=== PATIENT | female | born 1965 | race American Indian/Alaskan Native ===

== ENCOUNTER 2017-03-28 10:47 | Inpatient (IN) | payer OTHER ==
--- NOTE | 2017-03-28 11:41 | Emergency Department Report ---
Entered by ANEL ROTH, acting as scribe for WEI HALL PA. Chief Complaint: Abdominal Pain Stated Complaint: LOWER ABD PAIN Time Seen by Provider: 03/28/17 11:31 - HPI History of Present Illness: Patient c/o RLQ abdominal pain that began yesterday. Describes the pain as "kicking" Reports N&V since last night. Reports constipation. Notes taking a laxative and had a bowel movement yesterday. Denies vaginal bleeding. Denies dysuria. Patient states she feels the urge to urinate but is unable. - ROS Review of Systems: All systems are negative unless stated in the HPI above. - Exam Vital Signs: Vital Signs 03/28/17 11:15 Temperature 97.9 F Pulse Rate 109 H Respiratory 20 Rate Blood Pressure 148/97 O2 Sat by Pulse 100 Oximetry Physical Exam: GENERAL: Patient is alert and oriented x 3. mild distress, moaning and holdin abdomen. atraumatic. LUNGS: Symmetrical with respiration. No wheezing, rales or crackles, CTAB. HEART: Regular rate and rhythm with normal S1/S2 present. No murmurs, rubs, or gallops. Abdomen: Soft. Normal bowel sounds present to all quadrants. RLQ tenderness. No guarding or rebound. MSE screening note: Focused history and physical exam performed. Due to findings the following was ordered: ED Medical Decision Making - Medical Decision Making Patient screened by provider in triage area. Lab work ordered and sent in for patient. CT scan of abdomen was also ordered for patient. Patient to be seen by MD on main ED side. ED Disposition for MSE Condition: Stable Instructions: Abdominal Pain (ED) This documentation as recorded by the scribe,ANEL ROTH,accurately reflects the service I personally performed and the decisions made by RAFAEL smith OYINLOLA A, PA.
[2017-03-28 12:09] LABS: Basophils % (Auto) 0.4 % (0.0-1.8); Eosinophils % (Auto) 0.1 % (0.0-4.3); Hematocrit 40.4 % (30.3-42.9); Hemoglobin 13.9 gm/dl (10.1-14.3); Mean Corpuscular HGB Conc 34 % (30-34); Mean Corpuscular Hemoglobin 35 pg (28-32); Mean Corpuscular Volume 102 fl (79-97); Platelet Count 317 K/mm3 (140-440); Red Blood Count 3.95 M/mm3 (3.65-5.03); Red Cell Distribution Width 14.7 % (13.2-15.2); White Blood Count 16.9 K/mm3 (4.5-11.0)
[2017-03-28 12:27] LABS: Alanine Aminotransferase 34 units/L (7-56); Albumin 4.5 g/dL (3.9-5); Albumin/Globulin Ratio 1.2 %; Alkaline Phosphatase 124 units/L (35-129); Amylase 53 units/L (27-131); Anion Gap 28 mmol/L; Blood Urea Nitrogen 8 mg/dL (7-17); Calcium 9.1 mg/dL (8.4-10.2); Carbon Dioxide 24 mmol/L (22-30); Chloride 90.8 mmol/L (98-107); Glucose 99 mg/dL (65-100); Lipase 11 units/L (13-60); Sodium 140 mmol/L (137-145); Total Protein 8.2 g/dL (6.3-8.2)
[2017-03-28 12:30] LABS: Potassium 2.3 mmol/L (3.6-5.0)
--- NOTE | 2017-03-28 14:08 | Cat Scan Report ---
CT OF THE ABDOMEN AND PELVIS WITHOUT CONTRAST HISTORY: Abdominal pain. TECHNIQUE: Helical CT without contrast. Sagittal and coronal reformatted images. FINDINGS: No comparison. There is moderate circumferential thickening of the colon. The right hemicolon is more affected. There is trace pericolonic fat stranding but no evidence for pneumatosis, abscess or free air. The colon does contain scattered diverticula distally. The stomach, small bowel loops and appendix are within normal limits. Mild fatty changes suspected in the liver. The biliary system, pancreas, spleen, kidneys, adrenal glands, aorta and bladder are unremarkable. The uterus and adnexa are within normal limits. 3 cm fibroid in the anterior uterine wall is noted. Heart size is normal. The lung bases are clear. No suspicious bony lesion. IMPRESSION: Findings consistent with a nonspecific colitis. See above.
[2017-03-28] MEDS ORDERED: ZOFRAN IV ONE (20:57)
[2017-03-28] MEDS ORDERED: DILAUDID IV ONE (20:57)
[2017-03-28] MEDS ORDERED: NACL 0.9% 1000 ML 1,000 ML IV ONE ×2 (20:57→22:58)
[2017-03-28] MEDS ORDERED: K-DUR PO ONE (20:57)
[2017-03-28] MEDS ORDERED: FLAGYL PO ONE (20:58)
[2017-03-28] MEDS ORDERED: LEVAQUIN PO ONE (20:58)
[2017-03-28] MEDS ORDERED: CATAPRES PO ONE (21:03)
--- NOTE | 2017-03-28 21:03 | Emergency Department Report ---
ED Abdominal Pain HPI - General Chief Complaint: Abdominal Pain Stated Complaint: LOWER ABD PAIN Time Seen by Provider: 03/28/17 11:22 Source: patient Mode of arrival: Ambulatory Limitations: No Limitations - History of Present Illness Initial Comments: 52-year-old female with a past medical history depression and hypertension presents to the hospital complaints of abdominal pain 2 days. Pain is in the right lower quadrant, constant, throbbing in nature. Pain rated moderate to severe in intensity, worse palpation or movement. No alleviating factors. Patient has 3 episodes of nausea vomiting last night. Patient thought she might be constipated since she was straining to have a bowel movement. Last normal was 2 days ago. Patient took a laxity of yesterday. Patient also having difficulty urinating. She states that she has a feeling that she has to urinate, the urine to trickles out. Denies dysuria, fever, or previous abdominal surgeries. Patient's blood pressure is elevated to my examination. Patient's been compliant with her amlodipine 10 mg and also takes anti- depressive. She admits to social and weekend alcohol use. Denies daily alcohol use - Related Data Allergies Allergy/AdvReac Type Severity Reaction Status Date / Time No Known Allergies Allergy Verified 03/28/17 11:20 ED Review of Systems ROS: Stated complaint: LOWER ABD PAIN Other details as noted in HPI Comment: All other systems reviewed and negative Other: Constitutional: No fevers chills Eyes: No eye pain visual changes or discharge ENT: No ear pain or throat pain Neck: Denies pain Respiratory: Denies cough wheezing shortness of breath Cardiovascular: Denies chest pain, palpitations, syncope GI: As per HPI : As per HPI Musculoskeletal: Denies back pain, joint swelling Skin: Denies rash, lesions, erythema Neurologic: Denies headache, numbness, weakness Psychiatric: Denies suicidal ideation, hallucinations ED Past Medical Hx - Past Medical History Previous Medical History?: Yes Hx Hypertension: Yes Hx Psychiatric Treatment: Yes (depression) - Surgical History Past Surgical History?: No - Social History Smoking Status: Current Every Day Smoker Substance Use Type: Alcohol ED Physical Exam - General Limitations: No Limitations - Other Other exam information: General: No limitations, patient is alert in no acute distress Head exam: Atraumatic, normocephalic Eyes exam: Normal appearance, pupils equal reactive to light, extraocular movements intact ENT: Moist mucous membrane, normal oropharynx Neck exam: Normal inspection, full range of motion, Respiratory exam: Clear to auscultation bilateral, no wheezes, rales, crackles Cardiovascular: Normal rate and rhythm, normal heart sounds Abdomen: Soft, nondistended, epigastric and right lower quadrant tenderness, no rebound or guarding, normal bowel sounds Extremity: Full range of motion normal inspection no deformity Back: Normal Inspection, full range of motion, no tenderness Neurologic: Alert, oriented x3, cranial nerves intact, no motor or sensory deficit Psychiatric: normal affect, normal mood Skin: Warm, dry, intact ED Course Vital Signs 03/28/17 03/28/17 03/28/17 11:15 19:05 20:41 Temperature 97.9 F Pulse Rate 109 H 103 H 104 H Respiratory 20 16 17 Rate Blood Pressure 148/97 Blood Pressure 168/101 [Left] O2 Sat by Pulse 100 99 Oximetry 03/28/17 03/28/17 03/28/17 21:04 21:10 21:20 Temperature Pulse Rate 95 H 100 H 119 H Respiratory 19 27 H 27 H Rate Blood Pressure 167/106 167/106 179/101 Blood Pressure [Left] O2 Sat by Pulse Oximetry 03/28/17 21:29 Temperature Pulse Rate 120 H Respiratory Rate Blood Pressure 176/101 Blood Pressure [Left] O2 Sat by Pulse Oximetry - Reevaluation(s) Reevaluation #1: 03/28/17 21:02 Meds ordered: Normal saline Zofran Dilaudid 0.5 mg Flagyl and Levaquin by mouth By mouth potassium clonidine 0.1 mg 03/28/17 21:40 Iv mag ordered ED Medical Decision Making - Lab Data Result diagrams: 03/28/17 11:56 03/28/17 11:49 Lab Results 03/28/17 03/28/17 03/28/17 Range/Units 11:05 11:49 11:56 WBC 16.9 H (4.5-11.0) K/mm3 RBC 3.95 (3.65-5.03) M/mm3 Hgb 13.9 (10.1-14.3) gm/dl Hct 40.4 (30.3-42.9) % MCV 102 H (79-97) fl MCH 35 H (28-32) pg MCHC 34 (30-34) % RDW 14.7 (13.2-15.2) % Plt Count 317 (140-440) K/mm3 Lymph % (Auto) 10.2 L (13.4-35.0) % [place] % (Auto) 5.2 (0.0-7.3) % Eos % (Auto) 0.1 (0.0-4.3) % Baso % (Auto) 0.4 (0.0-1.8) % Lymph # 1.7 (1.2-5.4) K/mm3 [place] # 0.9 H (0.0-0.8) K/mm3 Eos # 0.0 (0.0-0.4) K/mm3 Baso # 0.1 (0.0-0.1) K/mm3 Seg Neutrophils % 84.1 H (40.0-70.0) % Seg Neutrophils # 14.2 H (1.8-7.7) K/mm3 Sodium 140 (137-145) mmol/L Potassium 2.3 L* (3.6-5.0) mmol/L Chloride 90.8 L (98-107) mmol/L Carbon Dioxide 24 (22-30) mmol/L Anion Gap 28 mmol/L BUN 8 (7-17) mg/dL Creatinine 0.4 L (0.7-1.2) mg/dL Estimated GFR > 60 ml/min BUN/Creatinine Ratio 20.00 % Glucose 99 (65-100) mg/dL POC Glucose 93 (70-105) Calcium 9.1 (8.4-10.2) mg/dL Magnesium (1.7-2.3) mg/dL Total Bilirubin 1.10 (0.1-1.2) mg/dL AST 55 H (5-40) units/L ALT 34 (7-56) units/L Alkaline Phosphatase 124 (35-129) units/L Total Protein 8.2 (6.3-8.2) g/dL Albumin 4.5 (3.9-5) g/dL Albumin/Globulin Ratio 1.2 % Amylase 53 (27-131) units/L Lipase 11 L (13-60) units/L HCG, Qual (Negative) Urine Color (Yellow) Urine Turbidity (Clear) Urine pH (5.0-7.0) Ur Specific [place] (1.003-1.030) Urine Protein (Negative) mg/dL Urine Glucose (UA) (Negative) mg/dL Urine Ketones (Negative) mg/dL Urine Blood (Negative) Urine Nitrite (Negative) Urine Bilirubin (Negative) Urine Urobilinogen (<2.0) mg/dL Ur Leukocyte Esterase (Negative) Urine WBC (Auto) (0.0-6.0) /HPF Urine RBC (Auto) (0.0-6.0) /HPF U Epithel Cells (Auto) (0-13.0) /HPF Urine Mucus /HPF 03/28/17 03/28/17 03/28/17 Range/Units 11:56 20:47 20:52 WBC (4.5-11.0) K/mm3 RBC (3.65-5.03) M/mm3 Hgb (10.1-14.3) gm/dl Hct (30.3-42.9) % MCV (79-97) fl MCH (28-32) pg MCHC (30-34) % RDW (13.2-15.2) % Plt Count (140-440) K/mm3 Lymph % (Auto) (13.4-35.0) % [place] % (Auto) (0.0-7.3) % Eos % (Auto) (0.0-4.3) % Baso % (Auto) (0.0-1.8) % Lymph # (1.2-5.4) K/mm3 [place] # (0.0-0.8) K/mm3 Eos # (0.0-0.4) K/mm3 Baso # (0.0-0.1) K/mm3 Seg Neutrophils % (40.0-70.0) % Seg Neutrophils # (1.8-7.7) K/mm3 Sodium (137-145) mmol/L Potassium (3.6-5.0) mmol/L Chloride (98-107) mmol/L Carbon Dioxide (22-30) mmol/L Anion Gap mmol/L BUN (7-17) mg/dL Creatinine (0.7-1.2) mg/dL Estimated GFR ml/min BUN/Creatinine Ratio % Glucose (65-100) mg/dL POC Glucose (70-105) Calcium (8.4-10.2) mg/dL Magnesium 1.30 L (1.7-2.3) mg/dL Total Bilirubin (0.1-1.2) mg/dL AST (5-40) units/L ALT (7-56) units/L Alkaline Phosphatase (35-129) units/L Total Protein (6.3-8.2) g/dL Albumin (3.9-5) g/dL Albumin/Globulin Ratio % Amylase (27-131) units/L Lipase (13-60) units/L HCG, Qual Negative (Negative) Urine Color Bonnie (Yellow) Urine Turbidity Clear (Clear) Urine pH 6.0 (5.0-7.0) Ur Specific [place] 1.020 (1.003-1.030) Urine Protein 100 mg/dl (Negative) mg/dL Urine Glucose (UA) Neg (Negative) mg/dL Urine Ketones 20 (Negative) mg/dL Urine Blood Sm (Negative) Urine Nitrite Neg (Negative) Urine Bilirubin Neg (Negative) Urine Urobilinogen 2.0 (<2.0) mg/dL Ur Leukocyte Esterase Neg (Negative) Urine WBC (Auto) 1.0 (0.0-6.0) /HPF Urine RBC (Auto) 8.0 (0.0-6.0) /HPF U Epithel Cells (Auto) 2.0 (0-13.0) /HPF Urine Mucus Few /HPF - EKG Data -: EKG Interpreted by Me (nsr, prolonged qt (qtc 508)) - EKG Data When compared to previous EKG there are: previous EKG unavailable - Radiology Data Radiology results: report reviewed CT abdomen and pelvis noncontrast: Nonspecific colitis. Right hemicolon more infected. Probable uterine fibroid. - Medical Decision Making Patient denies daily alcohol use but I have high suspicion prior alcohol abuse given elevated AST, hypokalemia, and low back magnesium. Treatment has been initiated in the ED. Plan to admit for further management and monitoring. Despite urinary symptoms patient does not have any UTI identified at this time. - Differential Diagnosis colitis, appendicitis, UTI, diverticulitis Critical Care Time: No Critical care attestation.: If time is entered above; I have spent that time in minutes in the direct care of this critically ill patient, excluding procedure time. ED Disposition Clinical Impression: Colitis, Hypokalemia, Hypomagnesemia, HTN (hypertension) Disposition: -09 OP ADMIT IP TO THIS HOSP Is pt being admited?: Yes Condition: Stable Time of Disposition: 21:39 (Dr Zepeda/hosp)
[2017-03-28 21:26] LABS: Bilirubin,Urine NEG (Negative); Blood,Urine SM (Negative); Ketones,Urine 20 mg/dL (Negative); Leukocyte Esterase,Urine NEG (Negative); Mucus,Urine FEW /HPF; Nitrite,Urine NEG (Negative)
[2017-03-28] MEDS ORDERED: MAGNESIUM SULFATE 2GM/50ML 2 GM/50 ML BAG IV ONE (21:37)
--- NOTE | 2017-03-28 21:57 | Admit Criteria Form ---
Admission Criteria Documentation: ABDOMINAL PAIN Clinical Indications for Admission to Inpatient Care (Place 'X' for any and all applicable criteria): Admission is indicated for ANY ONE of the following(1)(2)(3)(4)(5): [ X]I. Inpatient admission required rather than observation care (Also use Abdominal Pain: Observation Care, as appropriate) because of ANY ONE of the following: [ ]a) Severe pain requiring acute inpatient management [X ]b) Identification of etiology/finding that requires inpatient care (eg, aortic dissection, free air) [ ]c) Absent bowel sounds with complete ileus(6) [ ]d) Suspected toxic megacolon [ ]e) Severe electrolyte abnormalities requiring inpatient care [ ]f) High fever or infection requiring inpatient admission as indicated by ANY ONE of following(7)(8): [ ] i) Appropriate outpatient or observational care antimicrobial treatment unavailable, not effective, or not feasible [ ] ii) Documented bacteremia [ ] iii) Temperature > 104.9 degrees F (oral) [ ] iv) T >103.1 F (oral) or < 96.8 F(rectal) that does not respond to all emergency treatment measures [ ]g) Signs of intestinal obstruction [B] [ ]h) Hemodynamic instability [ ]i) IV fluid to replace significant ongoing losses (greater than 3 L/m2 per day) (12)(13) [ ]j) Percutaneous or open drainage (eg, abscess, biliary tract ) procedures [ ]k) Parenteral nutrition regimen that must be implemented on inpatient basis [X ]l) Other condition,treatment or monitoring requiring inpatient admission. [ ]II. Peritoneal signs present [ ]III. Surgery needed that cannot be performed on an ambulatory basis. [ ]IV. Evaluation requires patient to not eat or drink for extended period ( eg, more than 24 hours). [ ]V. Contraindications and/or Inappropriate clinical situations for Observational Care in patients with abdominal pain, when ANY ONE of the following is required: [ ]a) Thorough evaluation is required to prevent catastrophic events due to delays in diagnosing (e.g.Mesenteric ischemia) 1,3 [ ]b) Patient with severe pathology or with chronic symptoms unlikely to improve in the ED stay (3) [ ]. General contraindications and/or Inappropriate clinical situations for Observational Care in patients with abdominal pain, when ANY ONE of the following is required: [ ]a) Prediction of prolongation of LOS based on ANY ONE of the following may be considered as a contraindication for observational care 2, 3, 4, 5, 6, 7, 8, 9, 10, 11 [ ]i) Age > 65 yrs. [ ]ii) Patient arriving by ambulance [ ]iii) Patient with high acuity [ ]iv) Patient requiring vital sign monitoring [ ]v) Patient on IV medication [ ]b) Systolic blood pressures 180mmHg 3,12 [ ]c) Patient with altered mental status including delirium and other alteration of consciousness, (3) [ ]d) Patient whose discharge disposition will be to a [facility] home or rehabilitation home should not be managed in Emergency Department Observation Unit. CMS rule requires 3 days hospital stay before such placement.3,13 [ ]e) Patient with failure to thrive due to broad array of etiologies 3,16,17 [ ]f) Inability to ambulate 3,14 Extended stay beyond goal length of stay may be needed for(2)(3): [ ]a) Persistent abdominal pain with suspected intra-abdominal process [ ]b) Diagnosed condition requiring continued stay (e.g., pancreatitis, complicated diverticulitis) [ ]c) Surgery (e.g., colectomy) The original [employer] content created by [employer] has been revised. The portions of the content which have been revised are identified through the use of italic text or in bold, and [facility] has neither reviewed nor approved the modified material.All other unmodified content is copyright [employer]. Please see references footnoted in the original [employer] edition 2016 Admission Criteria Met: Yes
[2017-03-28] MEDS ORDERED: ZOFRAN IV PRN (22:37)
[2017-03-28] MEDS ORDERED: DILAUDID IV PRN (22:37)
[2017-03-28] MEDS ORDERED: TYLENOL PO PRN (22:39)
[2017-03-28] MEDS ORDERED: NACL 0.9% 1000 ML 1,000 ML IV SCH (23:00)
[2017-03-28] MEDS: KCL 10MEQ/100ML 10 MEQ/100 ML BAG IV SCH (23:09)
[2017-03-29] MEDS: KCL 10MEQ/100ML 10 MEQ/100 ML BAG IV SCH ×3 (02:17→04:55)
--- NOTE | 2017-03-29 05:49 | History and Physical Report ---
History of Present Illness Date of examination: 03/28/17 Date of admission: 03/28/17 22:31 Chief complaint: Chief complaint is abdominal pain History of present illness: History of present illness, patient is a 52-year-old female who has been having abdominal pain especially on the right side going on for about 2 days pain is worse with movement or palpation and occasionally radiates to the right flank area. There is associated nausea vomiting, also patient noted some constipation and took some laxative yesterday, there is no history of fever or chills Past History Past Medical History: hypertension, other (DEPRESSION) Medications and Allergies Allergies Allergy/AdvReac Type Severity Reaction Status Date / Time No Known Allergies Allergy Verified 03/28/17 11:20 Active Meds: Active Medications Acetaminophen (Tylenol) 650 mg PO Q6H PRN PRN Reason: Nausea And Vomiting Heparin Sodium (Porcine) (Heparin) 5,000 unit SUB-Q Q12HR LUCHO Hydromorphone HCl (Dilaudid) 0.5 mg IV Q3H PRN PRN Reason: Pain , Severe (7-10) Last Admin: 03/29/17 03:15 Dose: 0.5 mg Levofloxacin/Dextrose (Levaquin 750mg/150ml) 750 mg in 150 mls @ 100 mls/hr IV Q24HR LUCHO PRN Reason: Protocol Metronidazole (Flagyl 500 Mg/100 Ml) 500 mg in 100 mls @ 100 mls/hr IV Q8HR [facility] Sodium Chloride (Nacl 0.9% 1000 Ml) 1,000 mls @ 75 mls/hr IV DIRECT LUCHO Ondansetron HCl (Zofran) 4 mg IV Q6H PRN PRN Reason: Nausea And Vomiting Review of Systems Constitutional: no weight loss, no weight gain, no fever, no chills, no sweats, no fatigue, no weakness, no malaise, no lethargy, no poor appetite, no daytime sleepiness Eyes: bilateral: other (no bilateral eye symptoms) Ears, nose, mouth and throat: no ear pain, no decreased hearing, no nose pain, no nasal congestion, no nasal discharge, no bleeding gums, no dental pain, no dysphagia, no hoarseness, no sore throat, no swelling in mouth, no swelling in throat, no post-nasal drip, no headache, no vertigo, no pain front of neck, no neck fullness/pressure Breasts: deferred Cardiovascular: no chest pain, no orthopnea, no palpitations, no rapid/ irregular heart beat, no edema, no syncope, no lightheadedness, no shortness of breath, no dyspnea on exertion, no paroxysmal nocturnal dyspnea, no claudication , no high blood pressure, no leg edema, no decreased exercise tolerance Respiratory: no cough with sputum, no excessive sputum, no hemoptysis, no shortness of breath, no dyspnea on exertion, no congestion, no wheezing, no pleurisy, no pain, no pain on inspiration, no sleep apnea, no respiratory infections, no home oxygen Gastrointestinal: abdominal pain, nausea, vomiting, constipation, no diarrhea, no change in bowel habits, no hematemesis, no coffee ground emesis, no melena, no hematochezia, no loss of appetite, no heartburn, no indigestion, no excessive gas, no jaundice, no dyspepsia/bloating, no early satiety, no lactose intolerance Genitourinary Female: no dyspareunia, no dysmenorrhea, no pelvic pain, no flank pain, no menorrhagia, no dysuria, no urinary frequency, no urgency, no stress incontinence, no post void dribbling, no incomplete emptying, no urge incontinence, no mixed incontinence, no difficulty voiding, no vaginal itching, no vaginal discharge, no vaginal odor, no abnormal vaginal bleeding, no genital sores, no vaginal dryness, no decreased libido, no mood problems, no prolapse symptoms, no , no difficulties conceiving Rectal: no pain, no incontinence, no hemorrhoids, no discharge, no flatulence Musculoskeletal: no neck stiffness, no neck pain, no shooting arm pain, no arm numbness/tingling, no low back pain, no shooting leg pain, no leg numbness/ tingling, no morning stiffness, no muscle weakness, no muscle cramps, no myalgias, no limitation of motion, no frequent falls, no fractures, no loss of height, no prior amputations Integumentary: no rash, no pruritis, no redness, no sores, no wounds, no jaundice, no boils, no blisters, no bullae, no lesions, no darkening of skin, no depigmentation, no acne, no dryness, no color changes, no unusual bruising, no change in hair/nails, no brittle nails, no striae, no hirsutism, no foot/leg ulcers, no onychomycosis Neurological: no transient paralysis, no paralysis, no weakness, no parathesias , no numbness, no tingling, no seizures, no syncope, no tremors, no ataxia, no headaches, no migraines, no convulsions, no aphasia, no change in speech, no change in mentation, no confusion, no memory loss, no changes in smell/taste, no gait dysfunction, no motor disturbance, no sensory deficit, no double vision , no loss of vision, no hearing difficulties, no burning pain, no paralysis, no spasticity Psychiatric: depression, no memory loss, no insomnia, no hypersomnia, no change in appetite, no change in libido, no suicidal ideation, no disorientation, no hopelessness, no anhedonia, no confusion, no irritability Endocrine: no cold intolerance, no heat intolerance, no excessive thirst, no polydipsia, no polyuria, no nocturia, no deepening of the voice, no thyroid mass , no palpatations, no high blood sugars Hematologic/Lymphatic: no easy bruising, no easy bleeding, no lymphadenopathy, no lymphedema, no thrombophilia Allergic/Immunologic: no urticaria, no allergic rhinitis, no persistent infections, no anaphylaxis Exam - Constitutional Vitals: Temp Pulse Resp BP Pulse Ox 98.2 F 94 H 18 146/93 94 03/29/17 05:02 03/29/17 05:02 03/29/17 05:02 03/29/17 05:02 03/29/17 05:02 General appearance: Present: mild distress. Absent: disheveled - EENT Eyes: Present: PERRL, EOM intact, irregular pupil ENT: clear oral mucosa, dentition normal - Neck Neck: Present: supple, normal ROM. Absent: enlarged thyroid, carotid bruits - Respiratory Respiratory effort: normal - Cardiovascular Rhythm: regular Heart Sounds: Present: S1 & S2. Absent: gallop, systolic murmur, diastolic murmur, rub, click - Extremities Extremities: no ischemia, No edema Peripheral Pulses: within normal limits - Abdominal General gastrointestinal: Present: soft, tender, non-distended, normal bowel sounds. Absent: non-tender, distended, rigid, absent bowel sounds, hepatomegaly , splenomegaly, mass Localized gastrointestinal: tender: RUQ, LUQ Female genitourinary: Present: deferred - Rectal Rectal Exam: deferred - Integumentary Integumentary: Present: clear, warm, dry, normal turgor. Absent: jaundice, clammy - Musculoskeletal Musculoskeletal: strength equal bilaterally - Psychiatric Psychiatric: appropriate mood/affect - Neurologic Neurologic: CNII-XII intact Results - Labs CBC & Chem 7: 03/28/17 11:56 03/28/17 11:49 Labs: Laboratory Last Values WBC 16.9 K/mm3 (4.5-11.0) H 03/28/17 11:56 RBC 3.95 M/mm3 (3.65-5.03) 03/28/17 11:56 Hgb 13.9 gm/dl (10.1-14.3) 03/28/17 11:56 Hct 40.4 % (30.3-42.9) 03/28/17 11:56 MCV 102 fl (79-97) H 03/28/17 11:56 MCH 35 pg (28-32) H 03/28/17 11:56 MCHC 34 % (30-34) 03/28/17 11:56 RDW 14.7 % (13.2-15.2) 03/28/17 11:56 Plt Count 317 K/mm3 (140-440) 03/28/17 11:56 Lymph % (Auto) 10.2 % (13.4-35.0) L 03/28/17 11:56 [place] % (Auto) 5.2 % (0.0-7.3) 03/28/17 11:56 Eos % (Auto) 0.1 % (0.0-4.3) 03/28/17 11:56 Baso % (Auto) 0.4 % (0.0-1.8) 03/28/17 11:56 Lymph # 1.7 K/mm3 (1.2-5.4) 03/28/17 11:56 [place] # 0.9 K/mm3 (0.0-0.8) H 03/28/17 11:56 Eos # 0.0 K/mm3 (0.0-0.4) 03/28/17 11:56 Baso # 0.1 K/mm3 (0.0-0.1) 03/28/17 11:56 Seg Neutrophils % 84.1 % (40.0-70.0) H 03/28/17 11:56 Seg Neutrophils # 14.2 K/mm3 (1.8-7.7) H 03/28/17 11:56 Sodium 140 mmol/L (137-145) 03/28/17 11:49 Potassium 2.3 mmol/L (3.6-5.0) L* 03/28/17 11:49 Chloride 90.8 mmol/L (98-107) L 03/28/17 11:49 Carbon Dioxide 24 mmol/L (22-30) 03/28/17 11:49 Anion Gap 28 mmol/L 03/28/17 11:49 BUN 8 mg/dL (7-17) 03/28/17 11:49 Creatinine 0.4 mg/dL (0.7-1.2) L 03/28/17 11:49 Estimated GFR > 60 ml/min 03/28/17 11:49 BUN/Creatinine Ratio 20.00 % 03/28/17 11:49 Glucose 99 mg/dL (65-100) 03/28/17 11:49 POC Glucose 93 (70-105) 03/28/17 11:05 Calcium 9.1 mg/dL (8.4-10.2) 03/28/17 11:49 Magnesium 1.30 mg/dL (1.7-2.3) L 03/28/17 20:47 Total Bilirubin 1.10 mg/dL (0.1-1.2) 03/28/17 11:49 AST 55 units/L (5-40) H 03/28/17 11:49 ALT 34 units/L (7-56) 03/28/17 11:49 Alkaline Phosphatase 124 units/L (35-129) 03/28/17 11:49 Total Protein 8.2 g/dL (6.3-8.2) 03/28/17 11:49 Albumin 4.5 g/dL (3.9-5) 03/28/17 11:49 Albumin/Globulin Ratio 1.2 % 03/28/17 11:49 Amylase 53 units/L (27-131) 03/28/17 11:49 Lipase 11 units/L (13-60) L 03/28/17 11:49 HCG, Qual Negative (Negative) 03/28/17 11:56 Urine Color Bonnie (Yellow) 03/28/17 20:52 Urine Turbidity Clear (Clear) 03/28/17 20:52 Urine pH 6.0 (5.0-7.0) 03/28/17 20:52 Ur Specific [place] 1.020 (1.003-1.030) 03/28/17 20:52 Urine Protein 100 mg/dl mg/dL (Negative) 03/28/17 20:52 Urine Glucose (UA) Neg mg/dL (Negative) 03/28/17 20:52 Urine Ketones 20 mg/dL (Negative) 03/28/17 20:52 Urine Blood Sm (Negative) 03/28/17 20:52 Urine Nitrite Neg (Negative) 03/28/17 20:52 Urine Bilirubin Neg (Negative) 03/28/17 20:52 Urine Urobilinogen 2.0 mg/dL (<2.0) 03/28/17 20:52 Ur Leukocyte Esterase Neg (Negative) 03/28/17 20:52 Urine WBC (Auto) 1.0 /HPF (0.0-6.0) 03/28/17 20:52 Urine RBC (Auto) 8.0 /HPF (0.0-6.0) 03/28/17 20:52 U Epithel Cells (Auto) 2.0 /HPF (0-13.0) 03/28/17 20:52 Urine Mucus Few /HPF 03/28/17 20:52 Assessment and Plan - Patient Problems (1) Colitis Current Visit: Yes Status: Acute Plan to address problem: Patient will be admitted to [facility] on telemetry because of hypokalemia and will be on IV normal saline at 100 mL an hour, patient will be on IV Levaquin 750 mg daily and IV metronidazole 500 mg every 8 hours. Patient will be on IV Hydromorphone 0.5mg every 3 hours as needed for pain and IV Zofran 4 mg every 6 hours for nausea vomiting, patient will have IV potassium chloride K riders 10 mEq in 100 mL of normal saline over 1 hour 4 disease will have basic metabolic panel and magnesium level checked this morning. Patient will be on IV Protonix 40 mg daily (2) Hypokalemia Current Visit: Yes Status: Acute (3) Hypomagnesemia Current Visit: Yes Status: Acute
[2017-03-29] MEDS: FLAGYL 500 MG/100 ML 500 MG/100 ML BAG IV SCH ×3 (05:57→21:56)
[2017-03-29 06:38] LABS: Anion Gap 16 mmol/L; Blood Urea Nitrogen 5 mg/dL (7-17); Calcium 7.9 mg/dL (8.4-10.2); Carbon Dioxide 29 mmol/L (22-30); Chloride 93.8 mmol/L (98-107); Glucose 94 mg/dL (65-100); Potassium 3.1 mmol/L (3.6-5.0); Sodium 136 mmol/L (137-145)
[2017-03-29] MEDS ORDERED: K-DUR PO ONE (10:00)
[2017-03-29] MEDS ORDERED: LEVAQUIN 750MG/150ML 750 MG/150 ML BAG IV SCH (10:00)
[2017-03-29] MEDS: HEPARIN SUB-Q SCH ×2 (11:28→21:57)
--- NOTE | 2017-03-29 14:03 | Progress Note ---
Assessment and Plan - Patient Problems (1) Colitis Current Visit: Yes Status: Acute Plan to address problem: A similar colitis at present which treating with Levaquin and Flagyl aggressive volume replacement and pain control. Also supportive care and nausea. He improved significantly today with advance diet to clear liquid diet and observe. I will follow electrolytes. (2) HTN (hypertension) Current Visit: Yes Status: Acute Qualifiers: Hypertension type: H Plan to address problem: Fair control despite patient being in pain. (3) Hypokalemia Current Visit: Yes Status: Acute Plan to address problem: GI losses K is better today at 3.1 will replace again today and recheck in a.m. Replace by mouth today. (4) Hypomagnesemia Current Visit: Yes Status: Acute Plan to address problem: Secondary to GI losses has been corrected. History Interval history: She states abdomen feels somewhat better. Still pain in the midepigastric area. Fever chills no nausea vomiting. Patient states still has the patient and would like enema. Hospitalist Physical - Constitutional Vitals: Temp Pulse Resp BP Pulse Ox 98.7 F 86 18 158/85 97 03/29/17 07:55 03/29/17 07:55 03/29/17 07:55 03/29/17 07:55 03/29/17 07:55 General appearance: Present: mild distress. Absent: disheveled - EENT Eyes: Present: PERRL, EOM intact ENT: hearing intact, clear oral mucosa, dentition normal - Neck Neck: Present: supple, normal ROM - Respiratory Respiratory effort: normal Respiratory: bilateral: CTA - Cardiovascular Rhythm: regular Heart Sounds: Present: S1 & S2 - Extremities Extremities: no ischemia, pulses intact, pulses symmetrical, No edema, normal temperature, Full ROM - Abdominal General gastrointestinal: soft, tender, non-distended, other (patient has pain along the midepigastric area with deep palpation no right upper quadrant pain.) - Integumentary Integumentary: Present: clear, warm, dry - Psychiatric Psychiatric: appropriate mood/affect, cooperative - Neurologic Neurologic: CNII-XII intact, moves all extremities, gait normal Results - Labs CBC & Chem 7: 03/28/17 11:56 03/29/17 06:06 Labs: Laboratory Last Values WBC 16.9 K/mm3 (4.5-11.0) H 03/28/17 11:56 RBC 3.95 M/mm3 (3.65-5.03) 03/28/17 11:56 Hgb 13.9 gm/dl (10.1-14.3) 03/28/17 11:56 Hct 40.4 % (30.3-42.9) 03/28/17 11:56 MCV 102 fl (79-97) H 03/28/17 11:56 MCH 35 pg (28-32) H 03/28/17 11:56 MCHC 34 % (30-34) 03/28/17 11:56 RDW 14.7 % (13.2-15.2) 03/28/17 11:56 Plt Count 317 K/mm3 (140-440) 03/28/17 11:56 Lymph % (Auto) 10.2 % (13.4-35.0) L 03/28/17 11:56 [place] % (Auto) 5.2 % (0.0-7.3) 03/28/17 11:56 Eos % (Auto) 0.1 % (0.0-4.3) 03/28/17 11:56 Baso % (Auto) 0.4 % (0.0-1.8) 03/28/17 11:56 Lymph # 1.7 K/mm3 (1.2-5.4) 03/28/17 11:56 [place] # 0.9 K/mm3 (0.0-0.8) H 03/28/17 11:56 Eos # 0.0 K/mm3 (0.0-0.4) 03/28/17 11:56 Baso # 0.1 K/mm3 (0.0-0.1) 03/28/17 11:56 Seg Neutrophils % 84.1 % (40.0-70.0) H 03/28/17 11:56 Seg Neutrophils # 14.2 K/mm3 (1.8-7.7) H 03/28/17 11:56 Sodium 136 mmol/L (137-145) L 03/29/17 06:06 Potassium 3.1 mmol/L (3.6-5.0) L D 03/29/17 06:06 Chloride 93.8 mmol/L (98-107) L 03/29/17 06:06 Carbon Dioxide 29 mmol/L (22-30) 03/29/17 06:06 Anion Gap 16 mmol/L 03/29/17 06:06 BUN 5 mg/dL (7-17) L 03/29/17 06:06 Creatinine 0.4 mg/dL (0.7-1.2) L 03/29/17 06:06 Estimated GFR > 60 ml/min 03/29/17 06:06 BUN/Creatinine Ratio 12.50 % 03/29/17 06:06 Glucose 94 mg/dL (65-100) 03/29/17 06:06 POC Glucose 93 (70-105) 03/28/17 11:05 Calcium 7.9 mg/dL (8.4-10.2) L 03/29/17 06:06 Magnesium 1.80 mg/dL (1.7-2.3) 03/29/17 06:06 Total Bilirubin 1.10 mg/dL (0.1-1.2) 03/28/17 11:49 AST 55 units/L (5-40) H 03/28/17 11:49 ALT 34 units/L (7-56) 03/28/17 11:49 Alkaline Phosphatase 124 units/L (35-129) 03/28/17 11:49 Total Protein 8.2 g/dL (6.3-8.2) 03/28/17 11:49 Albumin 4.5 g/dL (3.9-5) 03/28/17 11:49 Albumin/Globulin Ratio 1.2 % 03/28/17 11:49 Amylase 53 units/L (27-131) 03/28/17 11:49 Lipase 11 units/L (13-60) L 03/28/17 11:49 HCG, Qual Negative (Negative) 03/28/17 11:56 Urine Color Bonnie (Yellow) 03/28/17 20:52 Urine Turbidity Clear (Clear) 03/28/17 20:52 Urine pH 6.0 (5.0-7.0) 03/28/17 20:52 Ur Specific [place] 1.020 (1.003-1.030) 03/28/17 20:52 Urine Protein 100 mg/dl mg/dL (Negative) 03/28/17 20:52 Urine Glucose (UA) Neg mg/dL (Negative) 03/28/17 20:52 Urine Ketones 20 mg/dL (Negative) 03/28/17 20:52 Urine Blood Sm (Negative) 03/28/17 20:52 Urine Nitrite Neg (Negative) 03/28/17 20:52 Urine Bilirubin Neg (Negative) 03/28/17 20:52 Urine Urobilinogen 2.0 mg/dL (<2.0) 03/28/17 20:52 Ur Leukocyte Esterase Neg (Negative) 03/28/17 20:52 Urine WBC (Auto) 1.0 /HPF (0.0-6.0) 03/28/17 20:52 Urine RBC (Auto) 8.0 /HPF (0.0-6.0) 03/28/17 20:52 U Epithel Cells (Auto) 2.0 /HPF (0-13.0) 03/28/17 20:52 Urine Mucus Few /HPF 03/28/17 20:52
[2017-03-30] MEDS: FLAGYL 500 MG/100 ML 500 MG/100 ML BAG IV SCH ×2 (05:11→15:26)
[2017-03-30 07:04] LABS: Basophils % (Auto) 0.4 % (0.0-1.8); Eosinophils % (Auto) 0.7 % (0.0-4.3); Hematocrit 39.4 % (30.3-42.9); Hemoglobin 13.9 gm/dl (10.1-14.3); Mean Corpuscular HGB Conc 35 % (30-34); Mean Corpuscular Hemoglobin 36 pg (28-32); Mean Corpuscular Volume 101 fl (79-97); Platelet Count 285 K/mm3 (140-440); Red Blood Count 3.91 M/mm3 (3.65-5.03); Red Cell Distribution Width 14.4 % (13.2-15.2); White Blood Count 9.4 K/mm3 (4.5-11.0)
[2017-03-30 07:26] LABS: Anion Gap 14 mmol/L; Blood Urea Nitrogen 5 mg/dL (7-17); Calcium 8.9 mg/dL (8.4-10.2); Carbon Dioxide 32 mmol/L (22-30); Chloride 97.4 mmol/L (98-107); Glucose 94 mg/dL (65-100); Sodium 141 mmol/L (137-145)
[2017-03-30 07:46] LABS: Potassium 2.7 mmol/L (3.6-5.0)
[2017-03-30] MEDS ORDERED: MAGNESIUM SULFATE 1 GM in NACL 0.9% 50 ML IV ONE (08:30)
[2017-03-30] MEDS ORDERED: KCL 10MEQ/100ML 10 MEQ/100 ML BAG IV SCH (09:00)
[2017-03-30] MEDS ORDERED: NS/KCL 40MEQ 40 MEQ/1,000 ML BAG IV SCH (09:00)
--- NOTE | 2017-03-30 09:05 | Discharge Summary ---
Providers - Providers Date of Admission: 03/28/17 22:31 Attending physician: LELE ESTEVEZ MD Primary care physician: CORPORATE DEVELOPMENT ANALYST Hospitalization Condition: Stable Hospital course: . 52-year-old woman with pmh of HTN and depression, who presented with abdominal pain. She was found to have colitis which was confirmed on CT of abdomen, she met sepsis criteria, she received a sepsis protocol. She was treated with IV fluids and IV antibiotics. She was found to have profound hypokalemia and hypomagnesemia. Her lites were repleted. She was sent home on oral potassium and magnesium supplements. She's also being discharged on a course of antibiotics. She was in an improved state upon the time of discharge. Discharge diagnoses Acute colitis Sepsis Hypokalemia Hypomagnesemia Disposition: - TO HOME OR SELFCARE Time spent for discharge: 33 minutes Core Measure Documentation - Palliative Care Palliative Care/ Comfort Measures: Not Applicable - Core Measures Any of the following diagnoses?: none Exam - Constitutional Vitals: Temp Pulse Resp BP Pulse Ox 97.8 F 81 16 140/87 95 03/30/17 05:23 03/30/17 05:23 03/30/17 05:23 03/30/17 05:23 03/30/17 05:23 General appearance: Present: no acute distress, well-nourished - EENT Eyes: Present: PERRL ENT: hearing intact, clear oral mucosa - Neck Neck: Present: supple, normal ROM - Respiratory Respiratory effort: normal Respiratory: bilateral: CTA - Cardiovascular Heart Sounds: Present: S1 & S2. Absent: rub, click - Extremities Extremities: pulses symmetrical, No edema Peripheral Pulses: within normal limits - Abdominal General gastrointestinal: Present: soft, non-tender, non-distended, normal bowel sounds Female genitourinary: Present: normal - Integumentary Integumentary: Present: clear, warm, dry - Musculoskeletal Musculoskeletal: gait normal, strength equal bilaterally - Psychiatric Psychiatric: appropriate mood/affect, intact judgment & insight - Neurologic Neurologic: CNII-XII intact, moves all extremities Plan Additional Instructions: Please follow up with your Doctor within a week to have your blood potassium level rechecked Follow up with: PRIMARY CARE, [Primary Care Provider] - 3-5 Days Forms: Work/School Release Form Prescriptions: Ciprofloxacin HCl [Ciprofloxacin TAB] 500 mg PO Q12H #10 tab metroNIDAZOLE [Flagyl] 500 mg PO Q8HR #14 tablet Potassium Chloride [K-Dur] 20 meq PO BID #20 tab
[2017-03-30] MEDS: HEPARIN SUB-Q SCH (09:09)
[2017-03-30] MEDS ORDERED: KCL 40 MEQ in NACL 0.9% 500 ML 500 ML IV ONE (09:30)
[2017-03-30] MEDS ORDERED: NON-FORMULARY (Mirtazapine [Remeron] 45 MG) PO SCH (10:00)
[2017-03-30] MEDS ORDERED: NORVASC PO SCH (10:00)
[2017-03-30] MEDS: KCL 20 MEQ in NACL 0.9% 250ML 250 ML IV SCH ×2 (10:19→13:05)
[2017-03-30] MEDS ORDERED: REMERON PO SCH (11:00)
[2017-03-30 15:14] VITALS: BP 124/72
[2017-03-30] MEDS ORDERED: LEVAQUIN PO SCH (16:00)
== END 2017-03-30 15:38 | disposition home or self-care (01) | DRG 872 ==
LOC: ED 10:47 → 4A 22:31
PROVIDERS: ADMIT Internal Medicine; ATTEND Internal Medicine
DX: A41.9 Sepsis, unspecified organism (principal); K52.9 Noninfective gastroenteritis and colitis, unspecified; E87.6 Hypokalemia; E83.42 Hypomagnesemia; I10 Essential (primary) hypertension; F32.9 Major depressive disorder, single episode, unspecified; F17.200 Nicotine dependence, unspecified, uncomplicated
CPT/HCPCS: 36415; 74176; 80048; 80053; 81001; 82150; 82962; 83690; 83735; 84703; 85025; 87086; 93005; 93010; 96361; 96365; 96375; J1170; J1644; J1956; J2405; J3475; J3480; J7030; J7040; J7050

== ENCOUNTER 2018-05-22 19:49 | Inpatient (IN) | payer OTHER ==
[2018-05-22 20:54] LABS: Basophils % (Auto) 0.4 % (0.0-1.8); Eosinophils # (Auto) 0.1 K/mm3 (0.0-0.4); Eosinophils % (Auto) 0.4 % (0.0-4.3); Hematocrit 40.5 % (30.3-42.9); Hemoglobin 13.8 gm/dl (10.1-14.3); Lymphocytes # (Auto) 3.1 K/mm3 (1.2-5.4); Mean Corpuscular HGB Conc 34 % (30-34); Mean Corpuscular Hemoglobin 36 pg (28-32); Mean Corpuscular Volume 105 fl (79-97); Monocytes # (Auto) 0.7 K/mm3 (0.0-0.8); Monocytes % (Auto) 6.1 % (0.0-7.3); Platelet Count 368 K/mm3 (140-440); Red Blood Count 3.86 M/mm3 (3.65-5.03); Red Cell Distribution Width 15.5 % (13.2-15.2)
[2018-05-22 21:09] LABS: Alanine Aminotransferase 28 units/L (7-56); Albumin 4.2 g/dL (3.9-5); BUN/Creatinine Ratio 10; Blood Urea Nitrogen 5 mg/dL (7-17); Calcium 9.6 mg/dL (8.4-10.2); Hemolysis Index 5
[2018-05-22] MEDS ORDERED: K-DUR PO ONE (22:25)
--- NOTE | 2018-05-22 22:29 | Emergency Department Report ---
ED General Adult HPI - General Chief complaint: Arrhythmia/Palpitations Stated complaint: HIGH HEART RATE/CONSTIPATION/PANIC Time Seen by Provider: 05/22/18 22:17 Source: patient Mode of arrival: Ambulatory Limitations: No Limitations - History of Present Illness Initial comments: Patient is 53 years old female with history of hypertension and panic disorder. Patient presented to the ER complaining off bilateral leg pain for the last 2 weeks. Patient describes her pain as cramping in nature. She denied any injury or swelling. No recent travel. Patient denied any chest pain or shortness of breath. She also denied any fever. Patient had history of hypokalemia before and stated that her symptoms are similar to what she used to have before he - Related Data Home Medications Medication Instructions Recorded Confirmed Last Taken Mirtazapine [Remeron] 45 mg PO DAILY 03/29/17 05/23/18 03/28/17 09:00 amLODIPine [Norvasc] 10 mg PO DAILY 03/29/17 05/23/18 03/28/17 09:00 Previous Rx's Medication Instructions Recorded Last Taken Type Folic Acid [Folvite] 1 mg PO QDAY #30 tablet 05/25/18 Unknown Rx Potassium Chloride [K-Dur] 40 meq PO TID PRN #180 tablet 05/25/18 Unknown Rx Allergies Allergy/AdvReac Type Severity Reaction Status Date / Time No Known Allergies Allergy Verified 03/28/17 11:20 ED Review of Systems ROS: Stated complaint: HIGH HEART RATE/CONSTIPATION/PANIC Other details as noted in HPI Comment: All other systems reviewed and negative Constitutional: denies: chills, fever Respiratory: denies: cough, orthopnea, shortness of breath, SOB with exertion, SOB at rest, wheezing Cardiovascular: palpitations. denies: chest pain Gastrointestinal: denies: abdominal pain, nausea, vomiting, diarrhea, constipation, hematemesis, melena, hematochezia Musculoskeletal: denies: back pain Neurological: denies: headache, weakness, numbness, confusion, abnormal gait Psychiatric: anxiety. denies: depression, auditory hallucinations, visual hallucinations, homicidal thoughts, suicidal thoughts ED Past Medical Hx - Past Medical History Hx Hypertension: Yes Hx Psychiatric Treatment: Yes (depression, PANIC ATTACKS) - Surgical History Past Surgical History?: No - Social History Smoking Status: Current Every Day Smoker Substance Use Type: None - Medications Home Medications: Home Medications Medication Instructions Recorded Confirmed Last Taken Type Mirtazapine [Remeron] 45 mg PO DAILY 03/29/17 05/23/18 03/28/17 09:00 History amLODIPine [Norvasc] 10 mg PO DAILY 03/29/17 05/23/18 03/28/17 09:00 History Folic Acid [Folvite] 1 mg PO QDAY #30 tablet 05/25/18 Unknown Rx Potassium Chloride [K-Dur] 40 meq PO TID PRN #180 tablet 05/25/18 Unknown Rx ED Physical Exam - General Limitations: No Limitations General appearance: alert, in no apparent distress, anxious - Head Head exam: Present: atraumatic, normocephalic, normal inspection - Eye Eye exam: Present: normal appearance - ENT ENT exam: Present: normal exam, normal orophraynx, mucous membranes moist - Neck Neck exam: Present: normal inspection, full ROM. Absent: tenderness, meningismus, lymphadenopathy, thyromegaly - Respiratory Respiratory exam: Present: normal lung sounds bilaterally. Absent: respiratory distress, wheezes, rales, rhonchi, chest wall tenderness, accessory muscle use, decreased breath sounds, prolonged expiratory - Cardiovascular Cardiovascular Exam: Present: regular rate, normal rhythm, normal heart sounds - GI/Abdominal GI/Abdominal exam: Present: soft, normal bowel sounds. Absent: distended, tenderness, guarding, rebound, rigid, organomegaly, mass, bruit, pulsatile mass , hernia - Extremities Exam Extremities exam: Present: normal inspection, full ROM, normal capillary refill. Absent: tenderness, pedal edema, joint swelling, calf tenderness - Back Exam Back exam: Present: normal inspection, full ROM. Absent: tenderness, CVA tenderness (R), CVA tenderness (L), muscle spasm, paraspinal tenderness, vertebral tenderness - Neurological Exam Neurological exam: Present: alert, oriented X3, CN II-XII intact, normal gait, reflexes normal - Skin Skin exam: Present: warm, intact, normal color ED Course Vital Signs 05/22/18 05/22/18 05/22/18 19:57 20:19 23:00 Temperature 99.2 F 99.2 F 98.9 F Pulse Rate 100 H 100 H 89 Respiratory 18 18 20 Rate Blood Pressure 146/78 146/78 Blood Pressure 127/86 [Left] O2 Sat by Pulse 95 97 99 Oximetry 05/22/18 05/23/18 05/23/18 23:30 02:00 04:00 Temperature Pulse Rate 98 H 90 Respiratory 20 20 20 Rate Blood Pressure Blood Pressure 137/86 134/90 [Left] O2 Sat by Pulse 99 98 98 Oximetry 05/23/18 06:00 Temperature 98.9 F Pulse Rate 89 Respiratory 20 Rate Blood Pressure Blood Pressure 157/87 [Left] O2 Sat by Pulse 98 Oximetry - Reevaluation(s) Reevaluation #1: 05/23/18 01:00 Patient stated that her symptoms is getting much better. ED Medical Decision Making - Lab Data Result diagrams: 05/24/18 05:12 05/25/18 05:29 - EKG Data -: EKG Interpreted by Me EKG shows normal: sinus rhythm Rate: normal - EKG Data Interpretation: no acute changes Critical care attestation.: If time is entered above; I have spent that time in minutes in the direct care of this critically ill patient, excluding procedure time. ED Disposition Clinical Impression: Hypokalemia, Leg pain, bilateral Disposition: OP ADMIT IP TO THIS HOSP Is pt being admited?: Yes Condition: Stable
[2018-05-22] MEDS: KCL 10MEQ/100ML 10 MEQ/100 ML BAG IV SCH ×2 (22:49→23:59)
[2018-05-23] MEDS ORDERED: VITAMIN B-1 100 MG, FOLVITE 1 MG, INFUVITE 10 ML in NACL 0.9% 1000 ML 1,000 ML IV ONE (02:28)
--- NOTE | 2018-05-23 02:35 | Emergency Department Report ---
Blank Doc - Documentation Documentation: This patient as being seen by Dr Naqvi for a 2 week history of bilateral lower extremity pain and cramping. During her workup she was found to have hypokalemia with a potassium of 2.6. She was given 40 mEq orally and 20 mEq by IV with the plan for the patient to be discharged home if the potassium level was increasing. However the repeat potassium level came back at 2.3 despite replenishment. I have added a magnesium level to see if there is concurrent hypomagnesemia. The patient will be admitted to the hospital and was accepted for admission by the hospitalist, Dr. Zepeda.
[2018-05-23] MEDS ORDERED: MAGNESIUM SULFATE 1 GM in NACL 0.9% 50 ML IV ONE ×2 (02:48→03:07)
[2018-05-23] MEDS ORDERED: ZOFRAN IV PRN (03:09)
[2018-05-23] MEDS ORDERED: NON-FORMULARY (Ciprofloxacin Hcl [Ciprofloxacin Tab] 500 MG) PO SCH (03:30)
[2018-05-23] MEDS: KCL 10MEQ/100ML 10 MEQ/100 ML BAG IV SCH ×6 (04:00→22:28)
--- NOTE | 2018-05-23 04:04 | History and Physical Report ---
CHIEF COMPLAINT: 1. Cramps in the legs. 2. Palpitations. HISTORY OF PRESENT ILLNESS: The patient is a 53-year-old female who presents to the Emergency Room with bilateral legs cramping going on for about 2 weeks. There is no history of trauma, no history of swelling in the legs. The patient also denied history of chest pain or shortness of breath and denied history of fever and also denied history of diarrhea, nausea, or vomiting. The patient admitted to having leg cramps in the past. PAST MEDICAL HISTORY: Pertinent for hypertension, panic attacks, depression, low potassium. PAST SURGICAL HISTORY: Unremarkable. FAMILY HISTORY: Noncontributory. SOCIAL HISTORY: The patient smokes cigarettes, drinks alcohol, does not use illicit drugs. MEDICATIONS: The patient is on Remeron 45 mg by mouth daily, amlodipine 10 mg by mouth daily, ciprofloxacin 500 mg by mouth twice daily, K-Dur or potassium chloride 20 mEq by mouth twice daily, metronidazole 500 mg by mouth every 8 hours, Zofran 4 mg by mouth under the tongue every 8 hours, tramadol 50 mg by mouth every 4 hours as needed for pain. ALLERGIES: There are no known drug allergies. REVIEW OF SYSTEMS: CONSTITUTIONAL: There is no fever, no chills, no diaphoresis. HEENT: There is no headache or sore throat. CARDIOVASCULAR: Palpitation present. No chest pain. No orthopnea. RESPIRATORY: No shortness of breath and no cough. GASTROINTESTINAL SYSTEM: There is no nausea, no vomiting, no abdominal pain, diarrhea, or constipation. NEUROLOGIC: There is no numbness, no dizziness, no altered mental status. MUSCULOSKELETAL: Leg cramps noted, no joint swelling. DERMATOLOGICAL: There is no skin rash or itching. GENITOURINARY: There is no dysuria, hematuria, or flank pain. Rest of system review is normal. PHYSICAL EXAMINATION: GENERAL: At the time of exam, the patient was found to be alert and oriented x 3 and not in acute distress. VITAL SIGNS: Shows temperature of 99.2 degrees Fahrenheit, pulse of 100, respiration 18, blood pressure 146/78, O2 sat of 95% on room air. HEENT: Showed pupils to be equal, round, reactive to light and accommodation. Extraocular muscles are intact. NECK: Supple with no JVD or carotid bruit. CARDIOVASCULAR: Showed normal first and second heart sounds with no gallops or murmurs. RESPIRATORY: Shows good air entry on both sides of the lungs with no abnormal breath sounds. GASTROINTESTINAL: Shows abdomen to be full, soft, nontender with no organomegaly or rigidity. NEUROLOGICAL: Shows no focal deficit. MUSCULOSKELETAL: Shows no joint swelling or tenderness. DERMATOLOGICAL: Shows no skin rash. GENITOURINARY: Showing no costovertebral angle tenderness. PERTINENT LABORATORY DATA AND IMAGING STUDIES: The patient had CBC done with elevated white count of 11,500, normal hemoglobin and normal hematocrit with normal platelet level. The patient's chemistry show elevated sodium level of 147 with low potassium of 2.6, low chloride of 94.7 with elevated CO2 of 35, low BUN of 5, and low creatinine of 0.5, and normal glucose level. The patient's repeat potassium after potassium supplement shows a lower value of 2.3. The patient's magnesium level is low with a value of 1.6. The patient's liver transaminase shows elevated AST of 76 with normal ALT consistent with alcohol abuse. The patient's alcohol level is high with a value of 0.16. DIAGNOSES: 1. Hypokalemia. 2. Leg cramps or pain. 3. Low magnesium. 4. Alcohol abuse. PLAN: 1. The patient will be admitted to telemetry. 2. The patient will have magnesium sulfate 1 gram in 50 mL of normal saline given over 1 hour x 2 doses and also the patient will have IV KCl or potassium Chloride K-rider 10 mEq in 100 mL given over 1 hour x 4 doses. The patient will be on Zofran 4 mg IV every 8 hours as needed for nausea and vomiting and will be on Tylenol 650 mg by mouth every 4 hours for fever and headache. The patient's home medications will be started as shown in the medication reconciliation section. JOB# [id number] OCN/NTS TERESAD
[2018-05-23] MEDS ORDERED: KCL 10MEQ/100ML 10 MEQ/100 ML BAG IV ONE (05:17)
[2018-05-23] MEDS: HEPARIN SUB-Q SCH ×2 (05:58→22:29)
[2018-05-23] MEDS ORDERED: NON-FORMULARY (Mirtazapine [Remeron] 45 MG) PO SCH (10:00)
[2018-05-23] MEDS: NORVASC PO SCH (10:30)
[2018-05-23] MEDS: LEVAQUIN PO SCH (10:31)
[2018-05-23] MEDS: K-DUR PO SCH (14:41)
[2018-05-23] MEDS: TYLENOL PO PRN (14:42)
--- NOTE | 2018-05-23 19:06 | Event Note ---
Date: 05/23/18
--- NOTE | 2018-05-23 19:12 | Progress Note ---
Assessment and Plan Assessment and plan: --Acute alcohol intoxication; IV fluids, vitamins, supportive care Monitor for withdrawal symptoms, implement CIWA protocol as needed --Severe hypokalemia; replace per protocol and monitor levels --Hypomagnesemia; magnesium sulfate IV and follow levels --Bilateral lower extremity weakness and cramping Secondary to electrolyte deficiencies, supportive care is --History of chronic alcohol use; thiamine folic acid IV fluids, vitamins --Counseling done advised to quit alcohol intake Patient verbalized understanding --DVT prophylaxis with Lovenox Closely monitor the patient and adjust the management as needed Plan of care is reviewed with the patient and the nurse History Interval history: Patient seen and examined medical records reviewed Admitted this morning with altered level of consciousness tachycardia and history of constipation Patient feels slightly better Vital signs reviewed Hospitalist Physical - Constitutional Vitals: Temp Pulse Resp BP Pulse Ox 98.6 F 90 18 153/96 96 05/23/18 16:00 05/23/18 17:09 05/23/18 17:09 05/23/18 17:09 05/23/18 17:09 General appearance: Present: no acute distress, well-nourished - EENT Eyes: Present: PERRL, EOM intact - Neck Neck: Present: supple, normal ROM - Respiratory Respiratory effort: normal Respiratory: bilateral: diminished, negative: rales, rhonchi, wheezing - Cardiovascular Rhythm: regular Heart Sounds: Present: S1 & S2 - Extremities Extremities: no ischemia, No edema - Abdominal General gastrointestinal: soft, non-tender, non-distended, normal bowel sounds - Integumentary Integumentary: Present: clear, warm - Psychiatric Psychiatric: appropriate mood/affect, cooperative - Neurologic Neurologic: CNII-XII intact, moves all extremities Results - Labs CBC & Chem 7: 05/22/18 20:42 05/23/18 01:28 Labs: Laboratory Last Values WBC 11.5 K/mm3 (4.5-11.0) H 05/22/18 20:42 RBC 3.86 M/mm3 (3.65-5.03) 05/22/18 20:42 Hgb 13.8 gm/dl (10.1-14.3) 05/22/18 20:42 Hct 40.5 % (30.3-42.9) 05/22/18 20:42 MCV 105 fl (79-97) H 05/22/18 20:42 MCH 36 pg (28-32) H 05/22/18 20:42 MCHC 34 % (30-34) 05/22/18 20:42 RDW 15.5 % (13.2-15.2) H 05/22/18 20:42 Plt Count 368 K/mm3 (140-440) 05/22/18 20:42 Lymph % (Auto) 27.0 % (13.4-35.0) 05/22/18 20:42 Placer % (Auto) 6.1 % (0.0-7.3) 05/22/18 20:42 Eos % (Auto) 0.4 % (0.0-4.3) 05/22/18 20:42 Baso % (Auto) 0.4 % (0.0-1.8) 05/22/18 20:42 Lymph # 3.1 K/mm3 (1.2-5.4) 05/22/18 20:42 Placer # 0.7 K/mm3 (0.0-0.8) 05/22/18 20:42 Eos # 0.1 K/mm3 (0.0-0.4) 05/22/18 20:42 Baso # 0.0 K/mm3 (0.0-0.1) 05/22/18 20:42 Seg Neutrophils % 66.1 % (40.0-70.0) 05/22/18 20:42 Seg Neutrophils # 7.6 K/mm3 (1.8-7.7) 05/22/18 20:42 Sodium 147 mmol/L (137-145) H 05/22/18 20:42 Potassium 2.3 mmol/L (3.6-5.0) L* 05/23/18 01:28 Chloride 94.7 mmol/L (98-107) L 05/22/18 20:42 Carbon Dioxide 35 mmol/L (22-30) H 05/22/18 20:42 Anion Gap 20 mmol/L 05/22/18 20:42 BUN 5 mg/dL (7-17) L 05/22/18 20:42 Creatinine 0.5 mg/dL (0.7-1.2) L 05/22/18 20:42 Estimated GFR > 60 ml/min 05/22/18 20:42 BUN/Creatinine Ratio 10 % 05/22/18 20:42 Glucose 90 mg/dL (65-100) 05/22/18 20:42 Calcium 9.6 mg/dL (8.4-10.2) 05/22/18 20:42 Magnesium 1.60 mg/dL (1.7-2.3) L 05/23/18 01:28 Total Bilirubin 0.50 mg/dL (0.1-1.2) 05/22/18 20:42 AST 76 units/L (5-40) H 05/22/18 20:42 ALT 28 units/L (7-56) 05/22/18 20:42 Alkaline Phosphatase 118 units/L (35-129) 05/22/18 20:42 Total Protein 7.1 g/dL (6.3-8.2) 05/22/18 20:42 Albumin 4.2 g/dL (3.9-5) 05/22/18 20:42 Albumin/Globulin Ratio 1.4 % 05/22/18 20:42 HCG, Qual Negative (Negative) 05/22/18 20:42 Plasma/Serum Alcohol 0.16 % (0-0.07) H 05/22/18 22:53
[2018-05-23] MEDS: REMERON PO SCH (22:24)
[2018-05-24 06:07] LABS: Alanine Aminotransferase 18 units/L (7-56); Albumin 3.5 g/dL (3.9-5); BUN/Creatinine Ratio 8; Blood Urea Nitrogen 3 mg/dL (7-17); Calcium 9.5 mg/dL (8.4-10.2); Hemolysis Index 3
[2018-05-24 06:08] LABS: Basophils % (Auto) 0.3 % (0.0-1.8); Eosinophils % (Auto) 0.4 % (0.0-4.3); Hematocrit 43.4 % (30.3-42.9); Hemoglobin 14.7 gm/dl (10.1-14.3); Lymphocytes # (Auto) 1.5 K/mm3 (1.2-5.4); Lymphocytes % (Auto) 13.6 % (13.4-35.0); Mean Corpuscular HGB Conc 34 % (30-34); Mean Corpuscular Hemoglobin 36 pg (28-32); Mean Corpuscular Volume 106 fl (79-97); Monocytes # (Auto) 0.9 K/mm3 (0.0-0.8); Monocytes % (Auto) 8.1 % (0.0-7.3); Platelet Count 341 K/mm3 (140-440); Red Blood Count 4.08 M/mm3 (3.65-5.03); Red Cell Distribution Width 14.8 % (13.2-15.2)
[2018-05-24] MEDS: K-DUR PO SCH (08:29)
[2018-05-24] MEDS: KCL 10MEQ/100ML 10 MEQ/100 ML BAG IV SCH (08:29)
[2018-05-24] MEDS ORDERED: NACL 0.9% 1000 ML 1,000 ML with KCL 80 MEQ IV ONE ×2 (08:53→23:19)
--- NOTE | 2018-05-24 09:09 | Progress Note ---
Assessment and Plan Assessment and plan: --Acute alcohol intoxication; IV fluids, vitamins, supportive care Monitor for withdrawal symptoms, implement CITN protocol as needed --Severe hypokalemia; replace per protocol and monitor levels --Hypomagnesemia; magnesium sulfate IV and follow levels --Bilateral lower extremity weakness and cramping Secondary to electrolyte deficiencies, supportive care is --History of chronic alcohol use; thiamine folic acid IV fluids, vitamins --Counseling done advised to quit alcohol intake Patient verbalized understanding --DVT prophylaxis with Lovenox Closely monitor the patient and adjust the management as needed Plan of care is reviewed with the patient and the nurse Hospitalist Physical - Constitutional Vitals: Temp Pulse Resp BP Pulse Ox 97.4 F L 95 H 20 137/84 97 05/24/18 05:51 05/24/18 05:51 05/24/18 05:51 05/24/18 05:51 05/24/18 05:51 General appearance: Present: no acute distress, well-nourished Results - Labs CBC & Chem 7: 05/24/18 05:12 05/24/18 05:12 Labs: Laboratory Last Values WBC 10.7 K/mm3 (4.5-11.0) 05/24/18 05:12 RBC 4.08 M/mm3 (3.65-5.03) 05/24/18 05:12 Hgb 14.7 gm/dl (10.1-14.3) H 05/24/18 05:12 Hct 43.4 % (30.3-42.9) H 05/24/18 05:12 MCV 106 fl (79-97) H 05/24/18 05:12 MCH 36 pg (28-32) H 05/24/18 05:12 MCHC 34 % (30-34) 05/24/18 05:12 RDW 14.8 % (13.2-15.2) 05/24/18 05:12 Plt Count 341 K/mm3 (140-440) 05/24/18 05:12 Lymph % (Auto) 13.6 % (13.4-35.0) 05/24/18 05:12 Barber % (Auto) 8.1 % (0.0-7.3) H 05/24/18 05:12 Eos % (Auto) 0.4 % (0.0-4.3) 05/24/18 05:12 Baso % (Auto) 0.3 % (0.0-1.8) 05/24/18 05:12 Lymph # 1.5 K/mm3 (1.2-5.4) 05/24/18 05:12 Barber # 0.9 K/mm3 (0.0-0.8) H 05/24/18 05:12 Eos # 0.0 K/mm3 (0.0-0.4) 05/24/18 05:12 Baso # 0.0 K/mm3 (0.0-0.1) 05/24/18 05:12 Seg Neutrophils % 77.6 % (40.0-70.0) H 05/24/18 05:12 Seg Neutrophils # 8.3 K/mm3 (1.8-7.7) H 05/24/18 05:12 Sodium 143 mmol/L (137-145) 05/24/18 05:12 Potassium 2.6 mmol/L (3.6-5.0) L* 05/24/18 05:12 Chloride 94.4 mmol/L (98-107) L 05/24/18 05:12 Carbon Dioxide 35 mmol/L (22-30) H 05/24/18 05:12 Anion Gap 16 mmol/L 05/24/18 05:12 BUN 3 mg/dL (7-17) L 05/24/18 05:12 Creatinine 0.4 mg/dL (0.7-1.2) L 05/24/18 05:12 Estimated GFR > 60 ml/min 05/24/18 05:12 BUN/Creatinine Ratio 8 % 05/24/18 05:12 Glucose 113 mg/dL (65-100) H 05/24/18 05:12 Calcium 9.5 mg/dL (8.4-10.2) 05/24/18 05:12 Magnesium 1.70 mg/dL (1.7-2.3) 05/24/18 05:12 Total Bilirubin 0.80 mg/dL (0.1-1.2) 05/24/18 05:12 AST 32 units/L (5-40) 05/24/18 05:12 ALT 18 units/L (7-56) 05/24/18 05:12 Alkaline Phosphatase 112 units/L (35-129) 05/24/18 05:12 Total Protein 6.6 g/dL (6.3-8.2) 05/24/18 05:12 Albumin 3.5 g/dL (3.9-5) L 05/24/18 05:12 Albumin/Globulin Ratio 1.1 % 05/24/18 05:12 HCG, Qual Negative (Negative) 05/22/18 20:42 Plasma/Serum Alcohol 0.16 % (0-0.07) H 05/22/18 22:53
[2018-05-24] MEDS: FOLVITE PO SCH (10:25)
[2018-05-24] MEDS: NORVASC PO SCH (10:25)
[2018-05-24] MEDS: HEPARIN SUB-Q SCH ×2 (11:08→22:48)
[2018-05-24] MEDS: LEVAQUIN PO SCH (11:08)
[2018-05-24] MEDS: K-DUR PO PRN ×2 (11:30→22:48)
[2018-05-24] MEDS: KCL 40 MEQ in NACL 0.9% 500 ML 500 ML IV SCH ×2 (11:52→17:47)
[2018-05-24] MEDS: TYLENOL PO PRN (13:27)
[2018-05-24] MEDS: REMERON PO SCH (22:49)
[2018-05-25 07:36] LABS: BUN/Creatinine Ratio 20; Blood Urea Nitrogen 8 mg/dL (7-17); Calcium 9.5 mg/dL (8.4-10.2); Hemolysis Index 8
[2018-05-25] MEDS: LEVAQUIN PO SCH (10:18)
[2018-05-25] MEDS: NORVASC PO SCH (10:18)
[2018-05-25] MEDS: FOLVITE PO SCH (10:18)
[2018-05-25] MEDS: HEPARIN SUB-Q SCH (10:19)
--- NOTE | 2018-05-25 11:59 | Discharge Summary ---
Providers - Providers Date of Admission: 05/23/18 03:02 Attending physician: LELE ESTEVEZ MD Primary care physician: LEANN SANCHEZ MD Hospitalization Condition: Stable Exam - Constitutional Vitals: Temp Pulse Resp BP Pulse Ox 98.7 F 96 H 19 139/96 98 05/25/18 07:37 05/25/18 07:37 05/25/18 07:45 05/25/18 07:37 05/25/18 07:37 Plan Follow up with: PRIMARY CAREMD [Primary Care Provider] - 3-5 Days Prescriptions: Folic Acid [Folvite] 1 mg PO QDAY #30 tablet Potassium Chloride [K-Dur] 40 meq PO TID PRN #180 tablet PRN Reason: For K less than 3.5
[2018-05-25 12:33] VITALS: BP 138/85
== END 2018-05-25 13:00 | disposition home or self-care (01) | DRG 641 ==
LOC: ED 19:49 → 4A 05-23 03:02
PROVIDERS: ADMIT Internal Medicine; ATTEND Internal Medicine
DX: E87.6 Hypokalemia (principal); E83.42 Hypomagnesemia; I10 Essential (primary) hypertension; F32.9 Major depressive disorder, single episode, unspecified; F17.210 Nicotine dependence, cigarettes, uncomplicated; M79.605 Pain in left leg; F10.129 Alcohol abuse with intoxication, unspecified; M79.604 Pain in right leg; R25.2 Cramp and spasm; Z79.899 Other long term (current) drug therapy
CPT/HCPCS: 36415; 80048; 80053; 80320; 83735; 84100; 84132; 84703; 85025; 93005; 93010; 96374; 96375; G0480; J1644; J3411; J3475; J3480; J7030; J7040

== ENCOUNTER 2019-11-22 23:01 | Inpatient (IN) | payer OTHER, SELFPAY ==
[2019-11-22] MEDS ORDERED: DEXTROSE 50% IN WATER (25GM) 50 ML SYRINGE IV ONE (23:10)
[2019-11-22] MEDS ORDERED: ETOMIDATE 20 MG/10 ML INJ IV ONE (23:16)
[2019-11-22] MEDS ORDERED: SUCCINYLCHOLINE CHLORIDE 200 MG/10 ML INJ MDV IV ONE (23:16)
[2019-11-22] MEDS ORDERED: THIAMINE 100 MG, FOLIC ACID 1 MG, MULTIPLE VITAMIN INJ, ADULT 10 ML in SODIUM CHLORIDE ... IV ONE (23:19)
[2019-11-22] MEDS ORDERED: LIP THERAPY VASELINE TP PRN (23:23)
[2019-11-22] MEDS ORDERED: MINERAL OIL/PETROLATUM, WHITE OPHTH OINT 3.5 GM OU PRN (23:23)
--- NOTE | 2019-11-22 23:32 | Emergency Department Report ---
ED CPR HPI - General Chief Complaint: Cardiac Arrest/CPR Stated Complaint: CARDIAC ARREST Time Seen by Provider: 11/22/19 23:15 Source: EMS, old records reviewed Mode of arrival: Stretcher Limitations: Other - History of Present Illness Initial Comments: 54-year-old female with a past medical history of hypertension, depression, and alcohol abuse (as per medical record) presents to the hospital status post cardiac arrest. Patient is from home and family called EMS at 22: 27 for unresponsive patient. Upon their arrival patient was asystole cardiac arrest. They were unable to intubate patient with a ET tube because she was clenching down therefore Joe airway placed. Patient received Narcan and epinephrine. Patient's rhythm changed to PEA to sinus bradycardia, to PEA, then to sinus tach after receiving Narcan and epinephrine. Patient presents with a pulse, intermittent respirations, and bagging support via Joe airway with O2 sat of 100%. Accu-Chek of 71 obtained by EMS I spoke to patient's family (daughter and mother) at 12:35 AM. They states that patient only complained of chronic hip pain throughout the day. She complained of feeling hot, laid on the couch, then urinated on herself and was unresponsive. No sz activity noted. They deny that patient had any preceding infection symptoms, cough, fever, complaints of chest pain, shortness of breath, or abdominal pain. Patient is a known alcoholic and continues to drink. They state that patient has never had a seizure to their knowledge. - Related Data Home Medications Medication Instructions Recorded Confirmed Last Taken Mirtazapine [Remeron 30mg Rapdis] 30 mg PO DAILY 11/23/19 11/23/19 Unknown Quetiapine Fumarate [Seroquel Xr] 200 mg PO HS 11/23/19 11/23/19 Unknown Sertraline [Zoloft] 25 mg PO QDAY 11/23/19 11/23/19 Unknown amLODIPine [Norvasc] 5 mg PO DAILY 11/23/19 11/23/19 Unknown hydrOXYzine PAMOATE [Vistaril] 25 mg PO BID 11/23/19 11/23/19 Unknown Previous Rx's Medication Instructions Recorded Last Taken Type Folic Acid [Folvite] 1 mg PO QDAY #30 tablet 05/25/18 Unknown Rx Potassium Chloride [K-Dur] 40 meq PO TID PRN #180 tablet 05/25/18 Unknown Rx Allergies Allergy/AdvReac Type Severity Reaction Status Date / Time No Known Allergies Allergy Verified 03/28/17 11:20 ED Review of Systems ROS: Stated complaint: CARDIAC ARREST Other details as noted in HPI Comment: Unobtainable due to pts medical conditions ED Past Medical Hx - Past Medical History Hx Hypertension: Yes Hx Psychiatric Treatment: Yes (depression, PANIC ATTACKS) Additional medical history: Alcohol abuse - Social History Smoking Status: Current Every Day Smoker Substance Use Type: None - Medications Home Medications: Home Medications Medication Instructions Recorded Confirmed Last Taken Type Folic Acid [Folvite] 1 mg PO QDAY #30 tablet 05/25/18 11/23/19 Unknown Rx Potassium Chloride [K-Dur] 40 meq PO TID PRN #180 tablet 05/25/18 11/23/19 Unknown Rx Mirtazapine [Remeron 30mg Rapdis] 30 mg PO DAILY 11/23/19 11/23/19 Unknown History Quetiapine Fumarate [Seroquel Xr] 200 mg PO HS 11/23/19 11/23/19 Unknown History Sertraline [Zoloft] 25 mg PO QDAY 11/23/19 11/23/19 Unknown History amLODIPine [Norvasc] 5 mg PO DAILY 11/23/19 11/23/19 Unknown History hydrOXYzine PAMOATE [Vistaril] 25 mg PO BID 11/23/19 11/23/19 Unknown History ED Physical Exam - General Limitations: Other - Other Other exam information: General: Unresponsive status post cardiac arrest Head: Atraumatic Eyes: Pupils fixed and unresponsive to light ENT: Dry mucous membrane Neck: Normal appearance Chest: Clear to auscultation bilaterally, intermittent respirations, Joe airway in place CV: Tachycardic regular rhythm Abdomen: Soft, abdomen distended Back: Normal inspection Extremity: Normal inspection Neuro: Patient unresponsive, minimal spontaneous movement Skin: No rash ED Course Vital Signs 11/22/19 11/22/19 11/22/19 23:04 23:16 23:30 Temperature Pulse Rate 115 H 112 H 106 H Respiratory 20 14 17 Rate Blood Pressure 154/112 178/91 Blood Pressure [Left] O2 Sat by Pulse 100 100 Oximetry 11/22/19 11/22/19 11/22/19 23:33 23:45 23:46 Temperature 94.4 F L Pulse Rate 106 H 109 H 102 H Respiratory 16 23 Rate Blood Pressure 178/91 134/83 Blood Pressure 134/83 [Left] O2 Sat by Pulse 100 100 100 Oximetry 11/23/19 11/23/19 11/23/19 00:00 00:20 00:30 Temperature Pulse Rate 105 H 107 H 106 H Respiratory 26 H 22 25 H Rate Blood Pressure 128/74 131/70 142/85 Blood Pressure [Left] O2 Sat by Pulse 100 100 100 Oximetry 11/23/19 11/23/19 11/23/19 00:45 01:00 01:15 Temperature Pulse Rate 108 H 109 H 113 H Respiratory 26 H 25 H 29 H Rate Blood Pressure 123/72 123/72 139/86 Blood Pressure [Left] O2 Sat by Pulse 99 99 100 Oximetry 11/23/19 11/23/19 11/23/19 01:30 01:45 02:00 Temperature Pulse Rate 87 87 97 H Respiratory 22 22 22 Rate Blood Pressure 139/86 88/50 119/76 Blood Pressure [Left] O2 Sat by Pulse 100 Oximetry 11/23/19 11/23/19 11/23/19 02:16 02:30 02:45 Temperature Pulse Rate 112 H 109 H 101 H Respiratory 24 14 22 Rate Blood Pressure 164/107 158/104 109/67 Blood Pressure [Left] O2 Sat by Pulse 100 100 Oximetry 11/23/19 11/23/19 11/23/19 02:46 02:59 03:00 Temperature Pulse Rate 101 H 113 H Respiratory 22 19 Rate Blood Pressure 113/75 143/121 Blood Pressure [Left] O2 Sat by Pulse 100 100 69 L Oximetry 11/23/19 11/23/19 11/23/19 03:15 03:30 03:45 Temperature Pulse Rate 106 H 113 H 111 H Respiratory 24 24 24 Rate Blood Pressure 126/81 142/93 131/89 Blood Pressure [Left] O2 Sat by Pulse 96 97 97 Oximetry 11/23/19 04:00 Temperature 98.3 F Pulse Rate Respiratory Rate Blood Pressure Blood Pressure [Left] O2 Sat by Pulse Oximetry - Intubation Time Out Performed: Yes Sedative: Etomidate Mg Given: 20 Paralytic: Succinylcholine Mg Given: 100 Laryngoscope: Todd Size: 3 ET Tube Size: 7.5 Tube Secured Depth (cm): 24 Tube Secured Location: lips Tube Placement Confirmation: visualized tube passing t, equal breath sounds bilat, no breath sounds over epi, confirmation by capnometr Patient Tolerated Procedure: well Intubation Complications: none ED Medical Decision Making - Lab Data Result diagrams: 11/26/19 08:24 11/26/19 08:24 Lab Results 11/22/19 11/22/19 11/22/19 Range/Units 23:17 23:18 23:27 WBC 21.2 H (4.5-11.0) K/mm3 RBC 3.59 L (3.65-5.03) M/mm3 Hgb 9.8 L (10.1-14.3) gm/dl Hct 32.3 (30.3-42.9) % MCV 90 (79-97) fl MCH 27 L (28-32) pg MCHC 30 (30-34) % RDW 18.6 H (13.2-15.2) % Plt Count 454 H (140-440) K/mm3 Sodium (137-145) mmol/L Potassium (3.6-5.0) mmol/L Chloride (98-107) mmol/L Carbon Dioxide (22-30) mmol/L Anion Gap mmol/L BUN (7-17) mg/dL Creatinine (0.7-1.2) mg/dL Estimated GFR ml/min BUN/Creatinine Ratio % Glucose (65-100) mg/dL POC Glucose 53 L (70-105) Calcium (8.4-10.2) mg/dL Magnesium (1.7-2.3) mg/dL Total Bilirubin (0.1-1.2) mg/dL AST (5-40) units/L ALT (7-56) units/L Alkaline Phosphatase (35-129) units/L Ammonia (25-60) umol/L Total Creatine Kinase (30-135) units/L CK-MB (CK-2) (0.0-4.0) ng/mL CK-MB (CK-2) Rel Index (0-4) Troponin T (0.00-0.029) ng/mL Total Protein (6.3-8.2) g/dL Albumin (3.9-5) g/dL Albumin/Globulin Ratio % Lipase (13-60) units/L Urine Color Yellow (Yellow) Urine Turbidity Cloudy (Clear) Urine pH 6.0 (5.0-7.0) Ur Specific Endeavor 1.010 (1.003-1.030) Urine Protein >500 (Negative) mg/dL Urine Glucose (UA) >=500 (Negative) mg/dL Urine Ketones 20 (Negative) mg/dL Urine Blood Mod (Negative) Urine Nitrite Neg (Negative) Urine Bilirubin Neg (Negative) Urine Urobilinogen 4.0 (<2.0) mg/dL Ur Leukocyte Esterase Neg (Negative) Urine WBC (Auto) 40.0 H (0.0-6.0) /HPF Urine RBC (Auto) 10.0 (0.0-6.0) /HPF U Epithel Cells (Auto) 1.0 (0-13.0) /HPF Urine Bacteria (Auto) 2+ (Negative) /HPF Urine Mucus Few /HPF Salicylates (2.8-20.0) mg/dL Acetaminophen (10.0-30.0) ug/mL Plasma/Serum Alcohol (0-0.07) % 11/22/19 11/22/19 11/22/19 Range/Units 23:27 23:27 23:27 WBC (4.5-11.0) K/mm3 RBC (3.65-5.03) M/mm3 Hgb (10.1-14.3) gm/dl Hct (30.3-42.9) % MCV (79-97) fl MCH (28-32) pg MCHC (30-34) % RDW (13.2-15.2) % Plt Count (140-440) K/mm3 Sodium 141 (137-145) mmol/L Potassium 2.4 L* (3.6-5.0) mmol/L Chloride 85.1 L (98-107) mmol/L Carbon Dioxide 19 L (22-30) mmol/L Anion Gap 39 mmol/L BUN 15 (7-17) mg/dL Creatinine 0.5 L (0.7-1.2) mg/dL Estimated GFR > 60 ml/min BUN/Creatinine Ratio 30 % Glucose 261 H (65-100) mg/dL POC Glucose (70-105) Calcium 9.7 (8.4-10.2) mg/dL Magnesium 2.10 (1.7-2.3) mg/dL Total Bilirubin 1.20 (0.1-1.2) mg/dL AST 609 H (5-40) units/L ALT 152 H (7-56) units/L Alkaline Phosphatase 160 H (35-129) units/L Ammonia 117.0 H (25-60) umol/L Total Creatine Kinase 139 H (30-135) units/L CK-MB (CK-2) 8.3 H (0.0-4.0) ng/mL CK-MB (CK-2) Rel Index 5.9 H (0-4) Troponin T < 0.010 (0.00-0.029) ng/mL Total Protein 7.4 (6.3-8.2) g/dL Albumin 3.6 L (3.9-5) g/dL Albumin/Globulin Ratio 0.9 % Lipase (13-60) units/L Urine Color (Yellow) Urine Turbidity (Clear) Urine pH (5.0-7.0) Ur Specific Endeavor (1.003-1.030) Urine Protein (Negative) mg/dL Urine Glucose (UA) (Negative) mg/dL Urine Ketones (Negative) mg/dL Urine Blood (Negative) Urine Nitrite (Negative) Urine Bilirubin (Negative) Urine Urobilinogen (<2.0) mg/dL Ur Leukocyte Esterase (Negative) Urine WBC (Auto) (0.0-6.0) /HPF Urine RBC (Auto) (0.0-6.0) /HPF U Epithel Cells (Auto) (0-13.0) /HPF Urine Bacteria (Auto) (Negative) /HPF Urine Mucus /HPF Salicylates < 0.3 L (2.8-20.0) mg/dL Acetaminophen (10.0-30.0) ug/mL Plasma/Serum Alcohol (0-0.07) % 11/22/19 11/22/19 11/23/19 Range/Units 23:27 23:27 00:34 WBC (4.5-11.0) K/mm3 RBC (3.65-5.03) M/mm3 Hgb (10.1-14.3) gm/dl Hct (30.3-42.9) % MCV (79-97) fl MCH (28-32) pg MCHC (30-34) % RDW (13.2-15.2) % Plt Count (140-440) K/mm3 Sodium (137-145) mmol/L Potassium (3.6-5.0) mmol/L Chloride (98-107) mmol/L Carbon Dioxide (22-30) mmol/L Anion Gap mmol/L BUN (7-17) mg/dL Creatinine (0.7-1.2) mg/dL Estimated GFR ml/min BUN/Creatinine Ratio % Glucose (65-100) mg/dL POC Glucose (70-105) Calcium (8.4-10.2) mg/dL Magnesium (1.7-2.3) mg/dL Total Bilirubin (0.1-1.2) mg/dL AST (5-40) units/L ALT (7-56) units/L Alkaline Phosphatase (35-129) units/L Ammonia (25-60) umol/L Total Creatine Kinase (30-135) units/L CK-MB (CK-2) (0.0-4.0) ng/mL CK-MB (CK-2) Rel Index (0-4) Troponin T (0.00-0.029) ng/mL Total Protein (6.3-8.2) g/dL Albumin (3.9-5) g/dL Albumin/Globulin Ratio % Lipase 18 (13-60) units/L Urine Color (Yellow) Urine Turbidity (Clear) Urine pH (5.0-7.0) Ur Specific Endeavor (1.003-1.030) Urine Protein (Negative) mg/dL Urine Glucose (UA) (Negative) mg/dL Urine Ketones (Negative) mg/dL Urine Blood (Negative) Urine Nitrite (Negative) Urine Bilirubin (Negative) Urine Urobilinogen (<2.0) mg/dL Ur Leukocyte Esterase (Negative) Urine WBC (Auto) (0.0-6.0) /HPF Urine RBC (Auto) (0.0-6.0) /HPF U Epithel Cells (Auto) (0-13.0) /HPF Urine Bacteria (Auto) (Negative) /HPF Urine Mucus /HPF Salicylates (2.8-20.0) mg/dL Acetaminophen < 5.0 L (10.0-30.0) ug/mL Plasma/Serum Alcohol 0.08 H (0-0.07) % - EKG Data -: EKG Interpreted by Me (Biatrial enlargement) EKG shows normal: sinus rhythm, ST-T waves (No STEMI) Rate: tachycardia (108) - Radiology Data Radiology results: report reviewed CHEST 1 VIEW INDICATION / CLINICAL INFORMATION: post intubation xray. COMPARISON: None available. FINDINGS: SUPPORT DEVICES: NG tube is seen extending in the stomach. Endotracheal tube has been placed but the tip is low in position in the right mainstem bronchus and needs withdrawn approximately 5 cm. HEART / MEDIASTINUM: No significant abnormality. LUNGS / PLEURA: No significant pulmonary or pleural abnormality. No pneumothorax. ADDITIONAL FINDINGS: No significant additional findings. IMPRESSION: 1 The lungs are clear. The endotracheal tube is low in position. Head CT without intravenous contrast INDICATION: Unresponsive following cardiac arrest COMPARISON: None FINDINGS: The ventricles are normal in size and position. No hemorrhage or extra-axial fluid collection. No edema or mass effect. No focal infarct seen. Portions of the sinuses visualized are clear. No skull fracture identified. The riley-white interface is maintained and there is no evidence of global ischemia at this time. IMPRESSION: Negative head CT - Medical Decision Making She presents to the hospital after cardiopulmonary arrest. No significant complaints prior to episode. Patient's Joe airway was removed and patient was intubated with the ET after arrival. Labs suggest end-stage liver disease with patient being a known chronic alcoholic. Acute hepatitis panel also ordered and coags pending at dispo. Patient has significant leukocytosis with hypothermia upon arrival with mild hypoglycemia which can also be due to cardiac arrest versus sepsis. Warm blankets placed. Cultures ordered and patient covered empirically with Zosyn and vancomycin. UA did come back positive for infection and will be covered with the antibiotics ordered. Patient does have a significant anion gap acidosis status post cardiac arrest which could be secondary to tissue ischemia as well. IV potassium ordered for hypokalemia. Magnesium normal. patient has unreactive pupils and minimal spontaneous movement although she is biting down on the ET tube and having intermittent respirations. Sedation ordered with Ativan bolus x1, followed by ketamine while awaiting Versed drip from pharmacy. Hospitalist Dr Fuchs informed for admission critical care consult ordered placed - Differential Diagnosis CA, PE, CVA, encephalopathy, arrhythmia Critical Care Time: Yes Critical care time in (mins) excluding proc time.: 35 Critical care attestation.: If time is entered above; I have spent that time in minutes in the direct care of this critically ill patient, excluding procedure time. ED Disposition Clinical Impression: Cardiac arrest with successful resuscitation, Elevated LFTs, Hypokalemia, Alcohol abuse, Increased ammonia level, Leukocytosis, UTI (urinary tract infection) Disposition: [id number] OP ADMIT IP TO THIS HOSP Is pt being admited?: Yes Condition: Stable Time of Disposition: 01:40
--- NOTE | 2019-11-22 23:43 | XRay Report ---
CHEST 1 VIEW INDICATION / CLINICAL INFORMATION: post intubation xray. COMPARISON: None available. FINDINGS: SUPPORT DEVICES: NG tube is seen extending in the stomach. Endotracheal tube has been placed but the tip is low in position in the right mainstem bronchus and needs withdrawn approximately 5 cm. HEART / MEDIASTINUM: No significant abnormality. LUNGS / PLEURA: No significant pulmonary or pleural abnormality. No pneumothorax. ADDITIONAL FINDINGS: No significant additional findings. IMPRESSION: 1 The lungs are clear. The endotracheal tube is low in position. Signer Name: Yoni Desai MD Signed: 11/22/2019 11:39 PM Workstation Name: [id number] off the [id number]
[2019-11-22 23:58] LABS: Hematocrit 32.3 % (30.3-42.9); Hemoglobin 9.8 gm/dl (10.1-14.3); Mean Corpuscular HGB Conc 30 % (30-34); Mean Corpuscular Volume 90 fl (79-97); Platelet Count 454 K/mm3 (140-440); Red Blood Count 3.59 M/mm3 (3.65-5.03); Red Cell Distribution Width 18.6 % (13.2-15.2)
[2019-11-23 00:10] LABS: Creatine Kinase MB 8.3 ng/mL (0.0-4.0)
[2019-11-23 00:11] LABS: Alanine Aminotransferase 152 units/L (7-56); Albumin 3.6 g/dL (3.9-5); BUN/Creatinine Ratio 30; Blood Urea Nitrogen 15 mg/dL (7-17); Calcium 9.7 mg/dL (8.4-10.2); Hemolysis Index 18
[2019-11-23] MEDS ORDERED: SODIUM CHLORIDE 0.9% 1000 ML 1,000 ML IV ONE ×3 (00:31→01:48)
[2019-11-23] MEDS ORDERED: PIPERACIL/TAZOBACTA 4.5/NS 100 4.5 GM/100 ML VIAL IV ONE (00:48)
[2019-11-23] MEDS: POTASSIUM CHLORIDE 10 MEQ 10 MEQ/100 ML BAG IV SCH ×4 (00:52→05:41)
[2019-11-23] MEDS ORDERED: LORazepam 2 MG/ML VIAL IV ONE (00:57)
[2019-11-23] MEDS ORDERED: MIDAZOLAM 100 MG in SODIUM CHLORIDE 0.9% 80 ML IV SCH (01:00)
[2019-11-23 01:09] LABS: Bacteria,Urine 2+ /HPF (Negative); Bilirubin,Urine NEG (Negative); Blood,Urine MOD (Negative); Color,Urine Yellow (Yellow); Mucus,Urine FEW /HPF
[2019-11-23] MEDS ORDERED: KETAMINE 500 MG/5 ML VIAL MDV IV ONE (01:12)
[2019-11-23 01:14] LABS: Protein,Urine >500 mg/dL (Negative)
--- NOTE | 2019-11-23 01:19 | Cat Scan Report ---
Head CT without intravenous contrast INDICATION: Unresponsive following cardiac arrest COMPARISON: None FINDINGS: The ventricles are normal in size and position. No hemorrhage or extra-axial fluid collecti on. No edema or mass effect. No focal infarct seen. Portions of the sinuses visualized are clear. No skull fracture identified. The riley-white interface is maintained and there is no evidence of global ischemia at this time. IMPRESSION: Negative head CT Automated exposure control was utilized to diminish radiation dose Signer Name: Yoni Desai MD Signed: 11/23/2019 1:14 AM Workstation Name: [id number]
[2019-11-23] MEDS ORDERED: VANCOMYCIN/NS 1 GM/250 ML 1 GM/250 ML BAG IV ONE (01:28)
[2019-11-23 01:53] LABS: INR 1.29 (0.87-1.13)
[2019-11-23 01:54] LABS: Partial Thromboplastin Time 35.3 Sec. (24.2-36.6)
[2019-11-23 02:06] LABS: Hepatitis B Surface Antigen Non-Reactive (Negative); Hepatitis C Virus Antibody Non-Reactive (NonReactive)
[2019-11-23 02:10] LABS: Amphetamine Screen,Urine PRESUMPTIVE NEGATIVE; Benzodiazepines Screen,Urine PRESUMPTIVE NEGATIVE; Cannabinoid Screen,Urine PRESUMPTIVE NEGATIVE; Cocaine Screen,Urine PRESUMPTIVE NEGATIVE; Methadone Screen,Urine PRESUMPTIVE NEGATIVE; Opiate Screen,Urine PRESUMPTIVE NEGATIVE
[2019-11-23] MEDS ORDERED: SUCCINYLCHOLINE CHLORIDE 200 MG/10 ML INJ MDV ONE (02:10)
[2019-11-23] MEDS ORDERED: ETOMIDATE 20 MG/10 ML INJ IV ONE (02:10)
[2019-11-23 02:35] LABS: ABG Base Excess -3.9 mmol/L (-2.0-3.0); ABG HCO3 23.1 mmol/L (20.0-26.0); ABG Methemoglobin 0.5 % (0.0-1.5); ABG Oxygen Saturation 99.2 % (95.0-99.0); ABG PCO2 51.1 mm Hg; ABG PH 7.273 pH Units (7.350-7.450); ABG PO2 209.7 mm Hg (80.0-90.0)
[2019-11-23] MEDS ORDERED: HEPARIN 10,000 UNITS/10 ML VIAL IV ONE ×2 (02:37→02:50)
[2019-11-23] MEDS ORDERED: HEPARIN/ 0.45% NACL DRIP 25,000 UNIT/500 ML BAG IV SCH (03:00)
[2019-11-23] MEDS ORDERED: HEPARIN/ 0.45% NACL DRIP 25,000 UNIT/500 ML BAG ONE (03:10)
[2019-11-23] MEDS ORDERED: HEPARIN 10,000 UNITS/10 ML VIAL ONE (03:11)
[2019-11-23 04:41] LABS: Hematocrit 31.5 % (30.3-42.9); Hemoglobin 9.4 gm/dl (10.1-14.3)
[2019-11-23 04:49] LABS: INR 1.36 (0.87-1.13)
[2019-11-23 04:56] LABS: Anisocytosis 1+; Basophils % (Manual) 0 % (0.0-1.8); Eosinophils % (Manual) 0 % (0.0-4.3); Macrocytosis 1+; Total Cells Counted 100
[2019-11-23 04:57] LABS: Platelet Estimate Consistent w Auto
[2019-11-23 05:16] LABS: ABG Base Excess -3.2 mmol/L (-2.0-3.0); ABG HCO3 21.6 mmol/L (20.0-26.0); ABG Methemoglobin 0.5 % (0.0-1.5); ABG Oxygen Saturation 96.9 % (95.0-99.0); ABG PCO2 37.5 mm Hg; ABG PH 7.378 pH Units (7.350-7.450); ABG PO2 86.8 mm Hg (80.0-90.0)
[2019-11-23 05:32] LABS: Partial Thromboplastin Time 128.2 Sec. (24.2-36.6)
[2019-11-23] MEDS: PIPERACIL/TAZOBACTA 4.5/NS 100 4.5 GM/100 ML VIAL IV SCH ×3 (05:59→22:54)
--- NOTE | 2019-11-23 05:59 | History and Physical Report ---
History of Present Illness Date of examination: 11/23/19 Date of admission: 11/23/19 01:40 Chief complaint: Respiratory Arrest History of present illness: 54-year-old female with a past medical history of Hypertension, Depression, Tobacco use Disorder, Alcohol use Disorder as confirmed by Daughter and pt's mother presents to the hospital status post cardiac arrest. Patient is from home and family called EMS at 22: 27 for the pt who had told family members that she was not feeling good and c/o her chronic hip pain. She urinated and then was speaking, then she " froze and was rigid " per daughter and she became unresponsive and stopped breathing. Immediately, family began CPR. EMS found pt in PEA. Upon their arrival patient in SinuS Tachycardia.. They were unable to intubate patient with a ET tube because she was clenching down therefore Joe airway placed. Patient received Narcan and Epinephrine. Patient's rhythm changed to PEA to sinus bradycardia, to PEA, then to sinus tach after receiving Narcan and Epinephrine. Per the ED physician who evaluated pt, Patient presented with a pulse, intermittent respirations, and bagging support via Joe airway with O2 sat of 100%. Accu-Chek of 71 obtained by EMS I spoke to patient's family (daughter and mother). MOther is Anh Jesus- [phone] and she would like to be called about pt's progress or notified about the pt.. No seizure activity was noted. They deny that patient had any preceding infection symptoms, cough, fever, complaints of chest pain, shortness of breath, or any bleeding diathesis, melena, hematochezia, hematuria, hematemesis, or abdominal pain. Patient is a known alcoholic and continues to drink per daughter. No history could be obtained from the pt due to her mechanical ventilation. No previous hx of DVT/PE per mother and daughter. Past History Past Medical History: hypertension, other (ALcohol use disorder, Tobacco use disorder) Social history: alcohol abuse, full code. denies: IV drug use Family history: hypertension Medications and Allergies Allergies Allergy/AdvReac Type Severity Reaction Status Date / Time No Known Allergies Allergy Verified 03/28/17 11:20 Home Medications Medication Instructions Recorded Confirmed Last Taken Type Mirtazapine [Remeron 45mg TAB] 45 mg PO DAILY 03/29/17 05/23/18 03/28/17 09:00 History amLODIPine 10 mg PO DAILY 03/29/17 05/23/18 03/28/17 09:00 History Folic Acid [Folvite] 1 mg PO QDAY #30 tablet 05/25/18 Unknown Rx Potassium Chloride [K-Dur] 40 meq PO TID PRN #180 tablet 05/25/18 Unknown Rx Active Meds: Active Medications Fentanyl (Sublimaze) 25 mcg IV Q3HR PRN PRN Reason: Pain Hydrophilic Ointment (Vaseline Lip Therapy) 1 applic TP Q2HR PRN PRN Reason: Dry Lips Midazolam HCl 100 mg/ Sodium (Chloride) 100 mls @ 2 mls/hr IV TITR LUCHO; Protocol Last Titration: 11/23/19 03:02 Dose: 4 mg/hr, 4 mls/hr Documented by: Heparin Sodium/Sodium Chloride (Heparin/ 0.45% Nacl-25,000 Unit/500 Ml) 25,000 unit in 500 mls @ 20 mls/hr IV TITRATE LUCHO; Protocol Last Admin: 11/23/19 03:18 Dose: 1,000 units/hr, 20 mls/hr Documented by: Thiamine HCl 500 mg/ Sodium (Chloride) 105 mls @ 210 mls/hr IV TID LUCHO Stop: 11/26/19 07:59 Piperacillin Sod/Tazobactam Sod (Zosyn/Ns 4.5gm/100ml) 4.5 gm in 100 mls @ 200 mls/hr IV Q8HR LUCHO; Protocol Sodium Chloride (Nacl 0.9% 1000 Ml) 1,000 mls @ 100 mls/hr IV DIRECT LUCHO Stop: 11/24/19 13:59 Midazolam HCl (Versed) 2 mg IV Q10MIN PRN PRN Reason: Sedation Multi-Ingred Cream/Lotion/Oil/Oint (Artificial Tears Ophth Oint) 1 applic OU Q4HR PRN PRN Reason: Dry Eye(s) Pantoprazole Sodium (Protonix) 40 mg IV QDAY LUCHO Pneumococcal Polyvalent Vaccine (Pneumovax 23) 0.5 ml IM .ONCE ONE Stop: 11/23/19 12:01 Review of Systems ROS unobtainable: due to mental status Exam - Constitutional Vitals: Temp Pulse Resp BP Pulse Ox 98.3 F 111 H 24 131/89 95 11/23/19 04:00 11/23/19 03:45 11/23/19 05:24 11/23/19 03:45 11/23/19 05:24 General appearance: Present: no acute distress, well-nourished - Neck Neck: Present: supple, masses or JVD (elevated JVD. positive hepatojugular reflux) Results - Labs CBC & Chem 7: 11/23/19 03:47 11/22/19 23:27 Labs: Laboratory Last Values WBC 21.2 K/mm3 (4.5-11.0) H 11/22/19 23:27 RBC 3.59 M/mm3 (3.65-5.03) L 11/22/19 23:27 Hgb 9.4 gm/dl (10.1-14.3) L 11/23/19 03:47 Hct 31.5 % (30.3-42.9) 11/23/19 03:47 MCV 90 fl (79-97) 11/22/19 23:27 MCH 27 pg (28-32) L 11/22/19 23:27 MCHC 30 % (30-34) 11/22/19 23:27 RDW 18.6 % (13.2-15.2) H 11/22/19 23:27 Plt Count 375 K/mm3 (140-440) 11/23/19 03:47 Add Manual Diff Complete 11/22/19 23:27 Total Counted 100 11/22/19 23:27 Seg Neuts % (Manual) 86.0 % (40.0-70.0) H 11/22/19 23:27 Band Neutrophils % 0 % 11/22/19 23:27 Lymphocytes % (Manual) 9.0 % (13.4-35.0) L 11/22/19 23:27 Reactive Lymphs % (Man) 0 % 11/22/19 23:27 Monocytes % (Manual) 5.0 % (0.0-7.3) 11/22/19 23:27 Eosinophils % (Manual) 0 % (0.0-4.3) 11/22/19 23:27 Basophils % (Manual) 0 % (0.0-1.8) 11/22/19 23:27 Metamyelocytes % 0 % 11/22/19 23:27 Myelocytes % 0 % 11/22/19 23:27 Promyelocytes % 0 % 11/22/19 23:27 Blast Cells % 0 % 11/22/19 23: Nucleated RBC % Not Reportable 11/22/19 23:27 Seg Neutrophils # Man 18.2 K/mm3 (1.8-7.7) H 11/22/19 23: Band Neutrophils # 0.0 K/mm3 11/22/19 23: Lymphocytes # (Manual) 1.9 K/mm3 (1.2-5.4) 11/22/19 23:27 Abs React Lymphs (Man) 0.0 K/mm3 11/22/19 23: Monocytes # (Manual) 1.1 K/mm3 (0.0-0.8) H 11/22/19 23: Eosinophils # (Manual) 0.0 K/mm3 (0.0-0.4) 11/22/19 23: Basophils # (Manual) 0.0 K/mm3 (0.0-0.1) 11/22/19 23: Metamyelocytes # 0.0 K/mm3 11/22/19 23: Myelocytes # 0.0 K/mm3 11/22/19 23: Promyelocytes # 0.0 K/mm3 11/22/19 23: Blast Cells # 0.0 K/mm3 11/22/19 23:27 WBC Morphology Not Reportable 11/22/19 23:27 Hypersegmented Neuts Not Reportable 11/22/19 23:27 Hyposegmented Neuts Not Reportable 11/22/19 23:27 Hypogranular Neuts Not Reportable 11/22/19 23:27 Smudge Cells Not Reportable 11/22/19 23:27 Toxic Granulation Not Reportable 11/22/19 23:27 Toxic Vacuolation Not Reportable 11/22/19 23:27 Dohle Bodies Not Reportable 11/22/19 23:27 Pelger-Huet Anomaly Not Reportable 11/22/19 23:27 Dominique Rods Not Reportable 11/22/19 23:27 Platelet Estimate Consistent w auto 11/22/19 23:27 Clumped Platelets Not Reportable 11/22/19 23:27 Plt Clumps, EDTA Not Reportable 11/22/19 23:27 Large Platelets Not Reportable 11/22/19 23:27 Giant Platelets Not Reportable 11/22/19 23:27 Platelet Satelliting Not Reportable 11/22/19 23:27 Plt Morphology Comment Not Reportable 11/22/19 23:27 RBC Morphology Not Reportable 11/22/19 23:27 Dimorphic RBCs Not Reportable 11/22/19 23:27 Polychromasia Not Reportable 11/22/19 23:27 Hypochromasia Not Reportable 11/22/19 23:27 Poikilocytosis Not Reportable 11/22/19 23:27 Anisocytosis 1+ 11/22/19 23:27 Microcytosis Not Reportable 11/22/19 23:27 Macrocytosis 1+ 11/22/19 23:27 Spherocytes Not Reportable 11/22/19 23:27 Pappenheimer Bodies Not Reportable 11/22/19 23:27 Sickle Cells Not Reportable 11/22/19 23:27 Target Cells Not Reportable 11/22/19 23:27 Tear Drop Cells Not Reportable 11/22/19 23:27 Ovalocytes Not Reportable 11/22/19 23:27 Helmet Cells Not Reportable 11/22/19 23:27 [place] Bodies Not Reportable 11/22/19 23:27 [place] Rings Not Reportable 11/22/19 23:27 [place] Cells Not Reportable 11/22/19 23:27 Bite Cells Not Reportable 11/22/19 23:27 Crenated Cell Not Reportable 11/22/19 23:27 Elliptocytes Not Reportable 11/22/19 23:27 Acanthocytes (Spur) Not Reportable 11/22/19 23:27 Rouleaux Not Reportable 11/22/19 23:27 Hemoglobin C Crystals Not Reportable 11/22/19 23:27 Schistocytes Not Reportable 11/22/19 23:27 Malaria parasites Not Reportable 11/22/19 23:27 Gregg Bodies Not Reportable 11/22/19 23:27 Hem Pathologist Commnt No 11/22/19 23:27 PT 17.0 Sec. (12.2-14.9) H 11/23/19 03:47 INR 1.36 (0.87-1.13) H 11/23/19 03:47 APTT 128.2 Sec. (24.2-36.6) H* 11/23/19 03:47 ABG pH 7.378 pH Units (7.350-7.450) 11/23/19 05:12 ABG pCO2 37.5 mm Hg 11/23/19 05:12 ABG pO2 86.8 mm Hg (80.0-90.0) 11/23/19 05:12 ABG HCO3 21.6 mmol/L (20.0-26.0) 11/23/19 05:12 ABG O2 Saturation 96.9 % (95.0-99.0) 11/23/19 05:12 ABG O2 Content 12.0 (0.0-44) 11/23/19 05:12 ABG Base Excess -3.2 mmol/L (-2.0-3.0) L 11/23/19 05:12 ABG Hemoglobin 9.0 gm/dl (12.0-16.0) L 11/23/19 05:12 ABG Carboxyhemoglobin 2.9 % (0.0-5.0) 11/23/19 05:12 ABG Methemoglobin 0.5 % (0.0-1.5) 11/23/19 05:12 Oxyhemoglobin 93.6 % (95.0-99.0) L 11/23/19 05:12 FiO2 40 % 11/23/19 05:12 Sodium 141 mmol/L (137-145) 11/22/19 23:27 Potassium 2.4 mmol/L (3.6-5.0) L* 11/22/19 23:27 Chloride 85.1 mmol/L (98-107) L 11/22/19 23:27 Carbon Dioxide 19 mmol/L (22-30) L 11/22/19 23:27 Anion Gap 39 mmol/L 11/22/19 23:27 BUN 15 mg/dL (7-17) 11/22/19 23:27 Creatinine 0.5 mg/dL (0.7-1.2) L 11/22/19 23:27 Estimated GFR > 60 ml/min 11/22/19 23:27 BUN/Creatinine Ratio 30 % 11/22/19 23:27 Glucose 261 mg/dL (65-100) H 11/22/19 23:27 POC Glucose 53 (70-105) L 11/22/19 23:18 Lactic Acid 5.00 mmol/L (0.7-2.0) H* 11/23/19 03:47 Calcium 9.7 mg/dL (8.4-10.2) 11/22/19 23: Magnesium 2.10 mg/dL (1.7-2.3) 11/22/19 23: Total Bilirubin 1.20 mg/dL (0.1-1.2) 11/22/19 23:27 AST 609 units/L (5-40) H 11/22/19 23:27 ALT 152 units/L (7-56) H 11/22/19 23:27 Alkaline Phosphatase 160 units/L (35-129) H 11/22/19 23:27 Ammonia 117.0 umol/L (25-60) H 11/22/19 23: Total Creatine Kinase 139 units/L (30-135) H 11/22/19 23:27 CK-MB (CK-2) 8.3 ng/mL (0.0-4.0) H 11/22/19 23: CK-MB (CK-2) Rel Index 5.9 (0-4) H 11/22/19 23: Troponin T < 0.010 ng/mL (0.00-0.029) 11/22/19 23: Total Protein 7.4 g/dL (6.3-8.2) 11/22/19 23: Albumin 3.6 g/dL (3.9-5) L 11/22/19 23: Albumin/Globulin Ratio 0.9 % 11/22/19 23: Lipase 18 units/L (13-60) 11/23/19 00:34 Urine Color Yellow (Yellow) 11/22/19 23:17 Urine Turbidity Cloudy (Clear) 11/22/19 23:17 Urine pH 6.0 (5.0-7.0) 11/22/19 23:17 Ur Specific Rock 1.010 (1.003-1.030) 11/22/19 23:17 Urine Protein >500 mg/dL (Negative) 11/22/19 23:17 Urine Glucose (UA) >=500 mg/dL (Negative) 11/22/19 23:17 Urine Ketones 20 mg/dL (Negative) 11/22/19 23:17 Urine Blood Mod (Negative) 11/22/19 23:17 Urine Nitrite Neg (Negative) 11/22/19 23:17 Urine Bilirubin Neg (Negative) 11/22/19 23:17 Urine Urobilinogen 4.0 mg/dL (<2.0) 11/22/19 23:17 Ur Leukocyte Esterase Neg (Negative) 11/22/19 23:17 Urine WBC (Auto) 40.0 /HPF (0.0-6.0) H 11/22/19 23:17 Urine RBC (Auto) 10.0 /HPF (0.0-6.0) 11/22/19 23:17 U Epithel Cells (Auto) 1.0 /HPF (0-13.0) 11/22/19 23:17 Urine Bacteria (Auto) 2+ /HPF (Negative) 11/22/19 23:17 Urine Mucus Few /HPF 11/22/19 23:17 Salicylates < 0.3 mg/dL (2.8-20.0) L 11/22/19 23:27 Urine Opiates Screen Presumptive negative 11/22/19 23:17 Urine Methadone Screen Presumptive negative 11/22/19 23:17 Acetaminophen < 5.0 ug/mL (10.0-30.0) L 11/22/19 23:27 Ur Barbiturates Screen Presumptive negative 11/22/19 23:17 Ur Phencyclidine Scrn Presumptive negative 11/22/19 23:17 Ur Amphetamines Screen Presumptive negative 11/22/19 23:17 U Benzodiazepines Scrn Presumptive negative 11/22/19 23:17 Urine Cocaine Screen Presumptive negative 11/22/19 23:17 U Marijuana (THC) Screen Presumptive negative 11/22/19 23:17 Drugs of Abuse Note Disclamer 11/22/19 23:17 Plasma/Serum Alcohol 0.08 % (0-0.07) H 11/22/19 23:27 Hepatitis A IgM Ab Non-reactive (NonReactive) 11/23/19 01:19 Hep Bs Antigen Non-reactive (Negative) 11/23/19 01:19 Hep B Core IgM Ab Non-reactive (NonReactive) 11/23/19 01:19 Hepatitis C Antibody Non-reactive (NonReactive) 11/23/19 01:19 Assessment and Plan Assessment and plan: Acute Respiratory Arrest - Story of HPI and elevated right sided pressures on PX and on ECG are all suggestive of An Acute PE - I started IV HEparin gtt - Await TTecho and also CTA when clinically stable - continue ICU monitoring Metabolic Acidosis -Alcohol ketoacidosis vs hypoprofusion - IVF - reassess ELevated LFTs - ischemic hepatitis. could worsen - monitor LFTs LEucocytosis - reactive vs aspiration Pneumonitis - IV Abx - hemodynamically stable ALcohol USe Disorder - given ongoing Alcohol use,almost daily, IV Thiamine for now - monitor FUll code Advance Directives: Yes
[2019-11-23 06:17] LABS: Alanine Aminotransferase 158 units/L (7-56); Albumin 2.8 g/dL (3.9-5); BUN/Creatinine Ratio 28; Blood Urea Nitrogen 14 mg/dL (7-17); Calcium 8.3 mg/dL (8.4-10.2); Hemolysis Index 82
[2019-11-23 07:30] LABS: Hematocrit 28.7 % (30.3-42.9); Hemoglobin 8.9 gm/dl (10.1-14.3); Mean Corpuscular HGB Conc 31 % (30-34); Mean Corpuscular Volume 87 fl (79-97); Platelet Count 366 K/mm3 (140-440); Red Blood Count 3.31 M/mm3 (3.65-5.03); Red Cell Distribution Width 18.6 % (13.2-15.2)
[2019-11-23] MEDS ORDERED: THIAMINE 500 MG in SODIUM CHLORIDE 0.9% 100 ML IV SCH (08:00)
--- NOTE | 2019-11-23 08:51 | Event Note ---
Date: 11/23/19 Patient seen and examined 54-year-old female with a past medical history of Hypertension, Depression, Tobacco use Disorder, Alcohol use Disorder presents to the hospital status post cardiac arrest. Patient is from home and family called EMS at 22: 27 for the pt after she " froze and was rigid " per daughter and became unresponsive and stopped breathing. Immediately, family began CPR. EMS found pt in PEA. They were unable to intubate patient with a ET tube because she was clenching down therefore Joe airway placed. Patient received Narcan and Epinephrine. Per the ED physician who evaluated pt, Patient presented with a pulse, intermittent respirations, and bagging support via Joe airway with O2 sat of 100%. Accu- Chek of 71 obtained by EMS, intubated in the ER. on heparin drip for possible PE, CTA chest pending, cont current Mx and plan.
[2019-11-23 09:07] LABS: Anisocytosis 1+; Basophils % (Manual) 0 % (0.0-1.8); Macrocytosis 1+; Platelet Estimate Consistent w Auto; Total Cells Counted 100
--- NOTE | 2019-11-23 09:49 | Consultation ---
History of Present Illness Consult date: 11/23/19 Requesting physician: ARASH PACHEOC History of present illness: HISTORY PER MEDICAL RECORDS- DOCUMENTATION PER HOSPITALIST 54-year-old female with a past medical history of Hypertension, Depression, Tobacco use Disorder, Alcohol use Disorder as confirmed by Daughter and pt's mother presents to the hospital status post cardiac arrest. Patient is from home and family called EMS at 22: 27 for the pt who had told family members that she was not feeling good and c/o her chronic hip pain. She urinated and then was speaking, then she " froze and was rigid " per daughter and she became unresponsive and stopped breathing. Immediately, family began CPR. EMS found pt in PEA. Upon their arrival patient in SinuS Tachycardia.. They were unable to intubate patient with a ET tube because she was clenching down therefore Joe airway placed. Patient received Narcan and Epinephrine. Patient's rhythm changed to PEA to sinus bradycardia, to PEA, then to sinus tach after receiving Narcan and Epinephrine. Per the ED physician who evaluated pt, Patient presented with a pulse, intermittent respirations, and bagging support via Joe airway with O2 sat of 100%. Accu-Chek of 71 obtained by EMS I have been consulted for critical care management Unable to obtain any information as the patient is on mechanical ventilatory support. The patient's mother Anh Jesus- [phone] is at the bedsdie at the time of my evaluation of the patient in the ICU No seizure activity was noted. She oralia that patient had any preceding infection symptoms, cough, fever, complaints of chest pain, shortness of breath, or any bleeding diathesis, melena, hematochezia, hematuria, hematemesis, or abdominal pain. Patient is a known alcoholic and continues to drink per mother and sister Past History Past Medical History: hypertension, other (ALcohol use disorder, Tobacco use disorder) Social history: alcohol abuse, full code. denies: IV drug use Family history: hypertension Medications and Allergies Allergies Allergy/AdvReac Type Severity Reaction Status Date / Time No Known Allergies Allergy Verified 03/28/17 11:20 Home Medications Medication Instructions Recorded Confirmed Last Taken Type Folic Acid [Folvite] 1 mg PO QDAY #30 tablet 05/25/18 11/23/19 Unknown Rx Potassium Chloride [K-Dur] 40 meq PO TID PRN #180 tablet 05/25/18 11/23/19 Unknown Rx Mirtazapine [Remeron 30mg Rapdis] 30 mg PO DAILY 11/23/19 11/23/19 Unknown History Quetiapine Fumarate [Seroquel Xr] 200 mg PO HS 11/23/19 11/23/19 Unknown History Sertraline [Zoloft] 25 mg PO QDAY 11/23/19 11/23/19 Unknown History amLODIPine [Norvasc] 5 mg PO DAILY 11/23/19 11/23/19 Unknown History hydrOXYzine PAMOATE [Vistaril] 25 mg PO BID 11/23/19 11/23/19 Unknown History Active Meds: Active Medications Fentanyl (Sublimaze) 25 mcg IV Q3HR PRN PRN Reason: Pain , Severe (7-10) Hydrophilic Ointment (Vaseline Lip Therapy) 1 applic TP Q2HR PRN PRN Reason: Dry Lips Midazolam HCl 100 mg/ Sodium (Chloride) 100 mls @ 2 mls/hr IV TITR LUCHO; Protocol Last Titration: 11/23/19 03:02 Dose: 4 mg/hr, 4 mls/hr Documented by: Heparin Sodium/Sodium Chloride (Heparin/ 0.45% Nacl-25,000 Unit/500 Ml) 25,000 unit in 500 mls @ 20 mls/hr IV TITRATE LUCHO; Protocol Last Admin: 11/23/19 03:18 Dose: 1,000 units/hr, 20 mls/hr Documented by: Thiamine HCl 500 mg/ Sodium (Chloride) 105 mls @ 210 mls/hr IV TID LUCHO Stop: 11/26/19 07:59 Piperacillin Sod/Tazobactam Sod (Zosyn/Ns 4.5gm/100ml) 4.5 gm in 100 mls @ 200 mls/hr IV Q8HR LUCHO; Protocol Last Admin: 11/23/19 05:59 Dose: 200 mls/hr Documented by: Sodium Chloride (Nacl 0.9% 1000 Ml) 1,000 mls @ 100 mls/hr IV DIRECT LUCHO Stop: 11/24/19 13:59 Midazolam HCl (Versed) 2 mg IV Q10MIN PRN PRN Reason: Sedation Multi-Ingred Cream/Lotion/Oil/Oint (Artificial Tears Ophth Oint) 1 applic OU Q4HR PRN PRN Reason: Dry Eye(s) Pantoprazole Sodium (Protonix) 40 mg IV QDAY LUCHO Pneumococcal Polyvalent Vaccine (Pneumovax 23) 0.5 ml IM .ONCE ONE Stop: 11/23/19 12:01 Review of Systems ROS unobtainable: due to endotracheal tube, due to mental status Physical Examination Vital signs: Vital Signs Pulse Resp 115 H 20 11/22/19 23:04 11/22/19 23:04 General appearance: no acute distress, other (orally intuabted ETT at 22 cm at the lip to mVS, no dys-synchrony) Eyes: non-icteric ENT: oropharynx dry Neck: supple, no lymphadenopathy, no JVD Effort: mildly labored Ascultation: Bilateral: diminished breath sounds, rhonchi Cardiovascular: regular rate and rhythm (tachycardia), other (S1,S2) Gastrointestinal: normoactive bowel sounds, soft, non-tender, other (distended, non tender) Integumentary: normal Extremities: no cyanosis, no edema, pulses normal, no ischemia or petechiae unable to assess other (Psychiatric: Unable to assess) Results - Laboratory Findings CBC and BMP: 11/23/19 06:32 11/23/19 04:53 ABG ABG pH 7.378 pH Units (7.350-7.450) 11/23/19 05:12 ABG pCO2 37.5 mm Hg 11/23/19 05:12 ABG pO2 86.8 mm Hg (80.0-90.0) 11/23/19 05:12 ABG O2 Saturation 96.9 % (95.0-99.0) 11/23/19 05:12 PT/INR, D-dimer PT 17.0 Sec. (12.2-14.9) H 11/23/19 03:47 INR 1.36 (0.87-1.13) H 11/23/19 03:47 Abnormal lab findings: Abnormal Labs 11/22/19 11/22/19 11/22/19 23:17 23:18 23:27 WBC 21.2 H RBC 3.59 L Hgb 9.8 L Hct MCH 27 L RDW 18.6 H Plt Count 454 H Seg Neuts % (Manual) 86.0 H Lymphocytes % (Manual) 9.0 L Seg Neutrophils # Man 18.2 H Lymphocytes # (Manual) Monocytes # (Manual) 1.1 H PT INR APTT ABG pH ABG pO2 ABG O2 Saturation ABG Base Excess ABG Hemoglobin Oxyhemoglobin Potassium Chloride Carbon Dioxide Creatinine Glucose POC Glucose 53 L Lactic Acid Calcium Phosphorus Total Bilirubin AST ALT Alkaline Phosphatase Ammonia Total Creatine Kinase CK-MB (CK-2) CK-MB (CK-2) Rel Index Albumin Urine WBC (Auto) 40.0 H Salicylates Acetaminophen Plasma/Serum Alcohol 11/22/19 11/22/19 11/22/19 23:27 23:27 23:27 WBC RBC Hgb Hct MCH RDW Plt Count Seg Neuts % (Manual) Lymphocytes % (Manual) Seg Neutrophils # Man Lymphocytes # (Manual) Monocytes # (Manual) PT INR APTT ABG pH ABG pO2 ABG O2 Saturation ABG Base Excess ABG Hemoglobin Oxyhemoglobin Potassium 2.4 L* Chloride 85.1 L Carbon Dioxide 19 L Creatinine 0.5 L Glucose 261 H POC Glucose Lactic Acid Calcium Phosphorus Total Bilirubin AST 609 H ALT 152 H Alkaline Phosphatase 160 H Ammonia 117.0 H Total Creatine Kinase 139 H CK-MB (CK-2) 8.3 H CK-MB (CK-2) Rel Index 5.9 H Albumin 3.6 L Urine WBC (Auto) Salicylates < 0.3 L Acetaminophen Plasma/Serum Alcohol 11/22/19 11/22/19 11/23/19 23:27 23:27 01:10 WBC RBC Hgb Hct MCH RDW Plt Count Seg Neuts % (Manual) Lymphocytes % (Manual) Seg Neutrophils # Man Lymphocytes # (Manual) Monocytes # (Manual) PT INR APTT ABG pH 7.273 L ABG pO2 209.7 H ABG O2 Saturation 99.2 H ABG Base Excess -3.9 L ABG Hemoglobin 10.6 L Oxyhemoglobin 93.9 L Potassium Chloride Carbon Dioxide Creatinine Glucose POC Glucose Lactic Acid Calcium Phosphorus Total Bilirubin AST ALT Alkaline Phosphatase Ammonia Total Creatine Kinase CK-MB (CK-2) CK-MB (CK-2) Rel Index Albumin Urine WBC (Auto) Salicylates Acetaminophen < 5.0 L Plasma/Serum Alcohol 0.08 H 11/23/19 11/23/19 11/23/19 01:19 01:19 03:47 WBC RBC Hgb Hct MCH RDW Plt Count Seg Neuts % (Manual) Lymphocytes % (Manual) Seg Neutrophils # Man Lymphocytes # (Manual) Monocytes # (Manual) PT 16.3 H INR 1.29 H APTT ABG pH ABG pO2 ABG O2 Saturation ABG Base Excess ABG Hemoglobin Oxyhemoglobin Potassium Chloride Carbon Dioxide Creatinine Glucose POC Glucose Lactic Acid 2.10 H* 5.00 H* Calcium Phosphorus Total Bilirubin AST ALT Alkaline Phosphatase Ammonia Total Creatine Kinase CK-MB (CK-2) CK-MB (CK-2) Rel Index Albumin Urine WBC (Auto) Salicylates Acetaminophen Plasma/Serum Alcohol 11/23/19 11/23/19 11/23/19 03:47 03:47 04:53 WBC RBC Hgb 9.4 L Hct MCH RDW Plt Count Seg Neuts % (Manual) Lymphocytes % (Manual) Seg Neutrophils # Man Lymphocytes # (Manual) Monocytes # (Manual) PT 17.0 H INR 1.36 H APTT 128.2 H* ABG pH ABG pO2 ABG O2 Saturation ABG Base Excess ABG Hemoglobin Oxyhemoglobin Potassium Chloride Carbon Dioxide 18 L Creatinine 0.5 L Glucose 105 H POC Glucose Lactic Acid Calcium 8.3 L Phosphorus 2.40 L Total Bilirubin 1.30 H AST 761 H ALT 158 H Alkaline Phosphatase 143 H Ammonia Total Creatine Kinase CK-MB (CK-2) CK-MB (CK-2) Rel Index Albumin 2.8 L Urine WBC (Auto) Salicylates Acetaminophen Plasma/Serum Alcohol 11/23/19 11/23/19 11/23/19 05:12 06:32 06:32 WBC 16.8 H RBC 3.31 L Hgb 8.9 L Hct 28.7 L MCH 27 L RDW 18.6 H Plt Count Seg Neuts % (Manual) 94.0 H Lymphocytes % (Manual) 1.0 L Seg Neutrophils # Man 15.8 H Lymphocytes # (Manual) 0.2 L Monocytes # (Manual) PT INR APTT ABG pH ABG pO2 ABG O2 Saturation ABG Base Excess -3.2 L ABG Hemoglobin 9.0 L Oxyhemoglobin 93.6 L Potassium Chloride Carbon Dioxide Creatinine Glucose POC Glucose Lactic Acid 3.30 H* Calcium Phosphorus Total Bilirubin AST ALT Alkaline Phosphatase Ammonia Total Creatine Kinase CK-MB (CK-2) CK-MB (CK-2) Rel Index Albumin Urine WBC (Auto) Salicylates Acetaminophen Plasma/Serum Alcohol - Diagnostic Findings Chest x-ray: image reviewed (Hyeeeeeeeerinflated, ETT in postion,) Assessment and Plan Acute cardiopulmonary arrest with ROSC Acute metabolic-toxic encephalopathy Metabolic acidosis/alcoholic acidosis Ischemic hepatitis Leucocytosis with lactic acidosis Tobacco use disorder ALcohol use Disorder Hypokalemia RECOMMENDATIONS -Continue with MVS, Lung protective strategies, monitor airway pressures -VAP bundle addressed -Aspiration precautions, HOB>40 -Get transthoracic echocardiogram to evaluate LVEF and possible cardiac etiology fro cardiopulmonary arrest -Daily assessment for readiness for SBT -Intermittent sedation until patient's neurologic state can be better evaluated -Stress ulcer prophylaxis -Initiate enteric nutritional support. Monitor glycemic control, with target blood glucose 140-180 mg/dL while critically ill. -Avoid hypoglycemia -RD consult placed - Daily SAT and SBT assessment as tolerated - Wean supplemental oxygen for target O2 sat's > 90% -ABG and CXR in am -Trend leukocytosis and lactic acidosis -Dela Cruz catheter in this acutely ill patient -Follow cultures and adjust antibiotic therapy for HILARIO and culture results -Treat for hepatic encephalopathy- especially with elevated ammonia levels- lactulose -Thiamine, multivitamin and electrolyte replacement -Avoid nephrotoxins, adjust all medications fro GFR and CrCL - Bronchodilators with pulmonary hygiene per RT - Avoid benzodiazepines to reduce the possibility of delirium - prn analgesia per CPOT score - Maintenance of sleep-wake cycle, avoid delirium - PT/OT/ROM exercises - Mobility protocol and skin assessment per protocol for pressure ulcer prevention - Monitor hemodynamics closely -Monitor for seizures -Nicotine withdrawal precautions, alcohol withdrawal precautions -Neurology consult -Once CTA is done, if no PE stop heparin infusion and switch to VTE prophylaxis while monitoring for bleeding - continue other care per attending / other consultants Discussed extensively with her mother and sister who are at [facility] bedside All their questions were answered. Her mother will make decisions CONDITION: CRITICAL PROGNOSIS: GUARDED CODE STATUS: FULL CODE The high probability of a clinically significant, sudden or life-threatening deterioration of the [respiratory, cardiovascular,GI/hepatology] system(s) required my full and direct attention, intervention and personal management. The aggregate critical care time was [35] minutes without overlap. Time includes spent on; [x] Data Review and interpretation [x] Patient assessment and monitoring of vital signs [x] Documentation [x] Medication orders and management
[2019-11-23] MEDS: SODIUM CHLORIDE 0.9% 1000 ML 1,000 ML IV SCH (11:22)
[2019-11-23] MEDS: LACTULOSE 20 GM/30 ML ORAL LIQD PO SCH ×2 (11:22→18:35)
[2019-11-23] MEDS: PANTOPRAZOLE 40 MG INJ IV SCH (11:22)
[2019-11-23] MEDS ORDERED: LIPASE 10,500/PROTEASE 25,000/AMYLASE 43,750 (UNITS) DR CAP FEEDTUBE PRN (11:50)
[2019-11-23] MEDS ORDERED: SODIUM BICARBONATE 325 MG TAB FEEDTUBE PRN (11:50)
[2019-11-23] MEDS ORDERED: SIMPLE SYRUP 15 ML FEEDTUBE PRN ×2 (11:50)
[2019-11-23] MEDS ORDERED: PNEUMOCOCCAL 23 Valent 0.5 ML VIAL IM ONE (12:00)
[2019-11-23] MEDS ORDERED: FLU VACC QUAD 2019-20 (3 YR UP)/PF 60 MCG/0.5 ML SYRINGE IM ONE (12:00)
[2019-11-23] MEDS: THIAMINE 100 MG in SODIUM CHLORIDE 0.9% 100 ML IV SCH ×2 (14:36→21:40)
--- NOTE | 2019-11-23 14:49 | Cat Scan Report ---
CTA of the chest with 3D Reconstruction Indication: ,Elevated right-sided pressure Technique: TECHNIQUE: Axial CT images were obtained through the chest after injection of 100 cc of Omnipaque 350 IV contrast. 3 plane MIP reconstructions were produced. All CT scans at this location are performed using CT dose reduction for ALARA by means of automated exposure control. COMPARISON: None Automatic exposure control was utilized in an attempt to reduce radiation dose. Findings: Pulmonary arteries: The main pulmonary artery and right and left pulmonary artery branches fill satis factorily with contrast. No pulmonary embolus is seen. Lungs: There is some mild bullous disease in the upper lung zones. There is minimal basilar atelectas is. There is a 4 mm nodule in the right lower lobe, series 2 image 61. There is mild scattered tree-in-bu d type parenchymal opacity in the upper lobes. Mediastinum: Heart size is normal. No adenopathy is seen. Aorta: Normal in diameter. No dissection seen within limits of this exam. Impression: No pulmonary embolus is seen There is some tree-in-bud type parenchymal opacity in the upper lobes likely representing a pneumonit is. There is a 4 mm nodule in the right lower lobe INCIDENTAL PULMONARY NODULE RECOMMENDATION Recommendation: Solid Nodule size <6 mm -- Single or Multiple - Low Risk Patient: No routine follow-up - High Risk Patient: Optional CT at 12 months Note These recommendations do not apply to lung cancer screening, patients with immunosuppression, o r patients with known primary cancer. Note Newly detected indeterminate nodule in persons 35 years of age or older. Persons under the age of 35 should not receive follow-up unless there is a known primary cancer. Low Risk Patient -- minimal or absent history of smoking and of other known risk factors. High Risk Patient -- history of smoking or of other known risk factors. Nodule dimensions are average of long and short axes, rounded to the nearest millimeter. Based on 2017 Fleischner Society Guidelines found in Radiology 2017 284:228-243. [email or web address].[email or web address] Signer Name: John Christine MD Signed: 11/23/2019 2:44 PM Workstation Name: [id number]
[2019-11-23] MEDS: MIDAZOLAM 2 MG/2 ML INJ IV PRN (18:34)
[2019-11-23] MEDS: HEPARIN 5,000 UNIT/1 ML VIAL SUB-Q SCH (21:40)
[2019-11-24] MEDS: LACTULOSE 20 GM/30 ML ORAL LIQD PO SCH ×5 (00:50→23:45)
[2019-11-24] MEDS: hydrALAZINE 20 MG/1 ML INJ IV PRN ×2 (00:56→09:33)
[2019-11-24] MEDS: SODIUM CHLORIDE 0.9% 1000 ML 1,000 ML IV SCH (00:56)
[2019-11-24] MEDS: MIDAZOLAM 2 MG/2 ML INJ IV PRN ×3 (01:49→14:40)
--- NOTE | 2019-11-24 03:19 | XRay Report ---
CHEST 1 VIEW INDICATION / CLINICAL INFORMATION: follow up respiratory failure. COMPARISON: 11/22/2019 FINDINGS: SUPPORT DEVICES: ET tube has been repositioned since the prior chest radiograph. The tip is approxima tely 4.9 cm above the mario and appears to be in grossly satisfactory position. NG tube is also pres ent and in stable/satisfactory position. Cardiac silhouette and pulmonary vascularity are grossly normal. Both lungs are well-expanded and are clear. HEART / MEDIASTINUM: No significant abnormality. LUNGS / PLEURA: No significant pulmonary or pleural abnormality. No pneumothorax. ADDITIONAL FINDINGS: No significant additional findings. IMPRESSION: 1. No acute findings. 2. Successful repositioning of endotracheal tube since prior chest radiograph of 11/22/2019. Signer Name: Mitra Odell MD Signed: 11/24/2019 3:14 AM Workstation Name: [id number]
[2019-11-24 05:33] LABS: ABG Base Excess 5.4 mmol/L (-2.0-3.0); ABG HCO3 29.4 mmol/L (20.0-26.0); ABG Methemoglobin 0.4 % (0.0-1.5); ABG Oxygen Saturation 97.3 % (95.0-99.0); ABG PCO2 40.9 mm Hg; ABG PH 7.475 pH Units (7.350-7.450); ABG PO2 88.6 mm Hg (80.0-90.0)
[2019-11-24] MEDS: PIPERACIL/TAZOBACTA 4.5/NS 100 4.5 GM/100 ML VIAL IV SCH ×3 (05:42→23:42)
[2019-11-24] MEDS ORDERED: MAGNESIUM SULFATE 2 GM/50 ML BAG IV ONE (09:00)
[2019-11-24] MEDS: HEPARIN 5,000 UNIT/1 ML VIAL SUB-Q SCH ×2 (09:31→23:45)
[2019-11-24] MEDS: fentaNYL 100 MCG/2 ML INJ IV PRN ×3 (09:32→22:33)
[2019-11-24] MEDS: PANTOPRAZOLE 40 MG INJ IV SCH (09:32)
[2019-11-24] MEDS: THIAMINE 100 MG in SODIUM CHLORIDE 0.9% 100 ML IV SCH ×3 (10:36→20:52)
--- NOTE | 2019-11-24 12:57 | Progress Note ---
Assessment and Plan Assessment and plan: 54-year-old female with a past medical history of Hypertension, Depression, Tobacco use Disorder, Alcohol use Disorder as confirmed by Daughter and pt's mother presents to the hospital status post cardiac arrest. Patient is from home and family called EMS at 22: 27 for the pt who had told family members that she was not feeling good and c/o her chronic hip pain. She urinated and then was speaking, then she " froze and was rigid " per daughter and she became unresponsive and stopped breathing. Immediately, family began CPR. EMS found pt in PEA. Upon their arrival patient in SinuS Tachycardia.. They were unable to intubate patient with a ET tube because she was clenching down therefore Joe airway placed. Patient received Narcan and Epinephrine. Patient's rhythm changed to PEA to sinus bradycardia, to PEA, then to sinus tach after receiving Narcan and Epinephrine. Per the ED physician who evaluated pt, Patient presented with a pulse, intermittent respirations, and bagging support via Joe airway with O2 sat of 100%. Accu-Chek of 71 obtained by EMS. Acute Respiratory Arrest -Patient is intubated and on mechanical ventilation - CTA was done and negative for PE, heparin GTT discontinued - Echo quality is poor, showed diastolic dysfunction - continue ICU monitoring Patient has elevated ammonia level and on lactulose Metabolic Acidosis -Alcohol ketoacidosis vs hypoprofusion - IVF -Continue to monitor ELevated LFTs - ischemic hepatitis. could worsen - monitor LFTs Leucocytosis - reactive vs aspiration Pneumonitis - IV Abx - hemodynamically stable ALcohol USe Disorder - given ongoing Alcohol use,almost daily, IV Thiamine for now - monitor FUll code The high probability of a clinically significant, sudden or life threatening deterioration of the [neurology,respiratory] system(s) required my full and direct attention, intervention and personal management. The aggregate critical care time was [32] minutes. This time is in addition to time spent performing reported procedures but includes the following: [x] Data Review and interpretation [x] Patient assessment and monitoring of vital signs [x] Documentation [x] Medication orders and management History Interval history: Patient was seen and evaluated this morning, patient was bated and on mechanical ventilation. patient is not responding. Hospitalist Physical - Physical exam Narrative exam: Patient is intubated and on mechanical ventilation The patient appeared well nourished and normally developed. Vital signs as documented. Head exam is unremarkable. No scleral icterus . Neck is without jugular venous distension, thyromegaly, or carotid bruits. Lungs are clear to auscultation. Cardiac exam reveals regular rate and Rhythm. Abdominal exam reveals normal bowel sounds, nontender, no organomegaly. Extremities are nonedematous and both femoral and pedal pulses are normal. 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 - Constitutional Vitals: Temp Pulse Resp BP Pulse Ox 101.5 F H 104 H 24 122/74 96 11/24/19 08:00 11/24/19 11:57 11/24/19 11:30 11/24/19 11:57 11/24/19 11:57 General appearance: Present: no acute distress, well-nourished Results - Labs CBC & Chem 7: 11/23/19 06:32 11/23/19 04:53 Labs: Laboratory Last Values WBC 16.8 K/mm3 (4.5-11.0) H 11/23/19 06:32 RBC 3.31 M/mm3 (3.65-5.03) L 11/23/19 06:32 Hgb 8.9 gm/dl (10.1-14.3) L 11/23/19 06:32 Hct 28.7 % (30.3-42.9) L 11/23/19 06:32 MCV 87 fl (79-97) 11/23/19 06:32 MCH 27 pg (28-32) L 11/23/19 06:32 MCHC 31 % (30-34) 11/23/19 06:32 RDW 18.6 % (13.2-15.2) H 11/23/19 06:32 Plt Count 366 K/mm3 (140-440) 11/23/19 06:32 Add Manual Diff Complete 11/23/19 06:32 Total Counted 100 11/23/19 06:32 Seg Neuts % (Manual) 94.0 % (40.0-70.0) H 11/23/19 06:32 Band Neutrophils % 0 % 11/23/19 06:32 Lymphocytes % (Manual) 1.0 % (13.4-35.0) L 11/23/19 06:32 Reactive Lymphs % (Man) 0 % 11/23/19 06:32 Monocytes % (Manual) 4.0 % (0.0-7.3) 11/23/19 06:32 Eosinophils % (Manual) 1.0 % (0.0-4.3) 11/23/19 06:32 Basophils % (Manual) 0 % (0.0-1.8) 11/23/19 06:32 Metamyelocytes % 0 % 11/23/19 06:32 Myelocytes % 0 % 11/23/19 06:32 Promyelocytes % 0 % 11/23/19 06:32 Blast Cells % 0 % 11/23/19 06:32 Nucleated RBC % Not Reportable 11/23/19 06:32 Seg Neutrophils # Man 15.8 K/mm3 (1.8-7.7) H 11/23/19 06:32 Band Neutrophils # 0.0 K/mm3 11/23/19 06:32 Lymphocytes # (Manual) 0.2 K/mm3 (1.2-5.4) L 11/23/19 06:32 Abs React Lymphs (Man) 0.0 K/mm3 11/23/19 06:32 Monocytes # (Manual) 0.7 K/mm3 (0.0-0.8) 11/23/19 06:32 Eosinophils # (Manual) 0.2 K/mm3 (0.0-0.4) 11/23/19 06:32 Basophils # (Manual) 0.0 K/mm3 (0.0-0.1) 11/23/19 06:32 Metamyelocytes # 0.0 K/mm3 11/23/19 06:32 Myelocytes # 0.0 K/mm3 11/23/19 06:32 Promyelocytes # 0.0 K/mm3 11/23/19 06:32 Blast Cells # 0.0 K/mm3 11/23/19 06:32 WBC Morphology Not Reportable 11/23/19 06:32 Hypersegmented Neuts Not Reportable 11/23/19 06:32 Hyposegmented Neuts Not Reportable 11/23/19 06:32 Hypogranular Neuts Not Reportable 11/23/19 06:32 Smudge Cells Not Reportable 11/23/19 06:32 Toxic Granulation Not Reportable 11/23/19 06:32 Toxic Vacuolation Not Reportable 11/23/19 06:32 Dohle Bodies Not Reportable 11/23/19 06:32 Pelger-Huet Anomaly Not Reportable 11/23/19 06:32 Dominique Rods Not Reportable 11/23/19 06:32 Platelet Estimate Consistent w auto 11/23/19 06:32 Clumped Platelets Not Reportable 11/23/19 06:32 Plt Clumps, EDTA Not Reportable 11/23/19 06:32 Large Platelets Not Reportable 11/23/19 06:32 Giant Platelets Not Reportable 11/23/19 06:32 Platelet Satelliting Not Reportable 11/23/19 06:32 Plt Morphology Comment Not Reportable 11/23/19 06:32 RBC Morphology Not Reportable 11/23/19 06:32 Dimorphic RBCs Not Reportable 11/23/19 06:32 Polychromasia Not Reportable 11/23/19 06:32 Hypochromasia Not Reportable 11/23/19 06:32 Poikilocytosis Not Reportable 11/23/19 06:32 Anisocytosis 1+ 11/23/19 06:32 Microcytosis Not Reportable 11/23/19 06:32 Macrocytosis 1+ 11/23/19 06:32 Spherocytes Not Reportable 11/23/19 06:32 Pappenheimer Bodies Not Reportable 11/23/19 06:32 Sickle Cells Not Reportable 11/23/19 06:32 Target Cells Not Reportable 11/23/19 06:32 Tear Drop Cells Not Reportable 11/23/19 06:32 Ovalocytes Not Reportable 11/23/19 06:32 Helmet Cells Not Reportable 11/23/19 06:32 [place] Bodies Not Reportable 11/23/19 06:32 [place] Rings Not Reportable 11/23/19 06:32 [place] Cells Not Reportable 11/23/19 06:32 Bite Cells Not Reportable 11/23/19 06:32 Crenated Cell Not Reportable 11/23/19 06:32 Elliptocytes Not Reportable 11/23/19 06:32 Acanthocytes (Spur) Not Reportable 11/23/19 06:32 Rouleaux Not Reportable 11/23/19 06:32 Hemoglobin C Crystals Not Reportable 11/23/19 06:32 Schistocytes Not Reportable 11/23/19 06:32 Malaria parasites Not Reportable 11/23/19 06:32 Gregg Bodies Not Reportable 11/23/19 06:32 Hem Pathologist Commnt No 11/23/19 06:32 PT 17.0 Sec. (12.2-14.9) H 11/23/19 03:47 INR 1.36 (0.87-1.13) H 11/23/19 03:47 APTT 128.2 Sec. (24.2-36.6) H* 11/23/19 03:47 Heparin Anti-Xa Level 0.31 U.I./ml (0.3-0.7) 11/23/19 09:03 ABG pH 7.475 pH Units (7.350-7.450) H 11/24/19 05:22 ABG pCO2 40.9 mm Hg 11/24/19 05:22 ABG pO2 88.6 mm Hg (80.0-90.0) 11/24/19 05:22 ABG HCO3 29.4 mmol/L (20.0-26.0) H 11/24/19 05:22 ABG O2 Saturation 97.3 % (95.0-99.0) 11/24/19 05:22 ABG O2 Content 12.2 (0.0-44) 11/24/19 05:22 ABG Base Excess 5.4 mmol/L (-2.0-3.0) H 11/24/19 05:22 ABG Hemoglobin 9.0 gm/dl (12.0-16.0) L 11/24/19 05:22 ABG Carboxyhemoglobin 2.0 % (0.0-5.0) 11/24/19 05:22 ABG Methemoglobin 0.4 % (0.0-1.5) 11/24/19 05:22 Oxyhemoglobin 95.0 % (95.0-99.0) 11/24/19 05:22 FiO2 40 % 11/24/19 05:22 Sodium 139 mmol/L (137-145) 11/23/19 04:53 Potassium 3.9 mmol/L (3.6-5.0) D 11/23/19 04:53 Chloride 98.7 mmol/L (98-107) 11/23/19 04:53 Carbon Dioxide 18 mmol/L (22-30) L 11/23/19 04:53 Anion Gap 26 mmol/L 11/23/19 04:53 BUN 14 mg/dL (7-17) 11/23/19 04:53 Creatinine 0.5 mg/dL (0.7-1.2) L 11/23/19 04:53 Estimated GFR > 60 ml/min 11/23/19 04:53 BUN/Creatinine Ratio 28 % 11/23/19 04:53 Glucose 105 mg/dL (65-100) H 11/23/19 04:53 POC Glucose 53 (70-105) L 11/22/19 23:18 Lactic Acid 3.30 mmol/L (0.7-2.0) H* 11/23/19 06:32 Calcium 8.3 mg/dL (8.4-10.2) L 11/23/19 04:53 Phosphorus 2.40 mg/dL (2.5-4.5) L 11/23/19 04:53 Magnesium 1.40 mg/dL (1.7-2.3) L 11/24/19 04:35 Total Bilirubin 1.30 mg/dL (0.1-1.2) H 11/23/19 04:53 AST 761 units/L (5-40) H 11/23/19 04:53 ALT 158 units/L (7-56) H 11/23/19 04:53 Alkaline Phosphatase 143 units/L (35-129) H 11/23/19 04:53 Ammonia 98.0 umol/L (25-60) H 11/24/19 04:35 Total Creatine Kinase 139 units/L (30-135) H 11/22/19 23:27 CK-MB (CK-2) 8.3 ng/mL (0.0-4.0) H 11/22/19 23:27 CK-MB (CK-2) Rel Index 5.9 (0-4) H 11/22/19 23:27 Troponin T < 0.010 ng/mL (0.00-0.029) 11/22/19 23:27 Total Protein 6.6 g/dL (6.3-8.2) 11/23/19 04:53 Albumin 2.8 g/dL (3.9-5) L 11/23/19 04:53 Albumin/Globulin Ratio 0.7 % 11/23/19 04:53 Lipase 18 units/L (13-60) 11/23/19 00:34 Procalcitonin 1.09 ng/mL (<0.15) 11/23/19 04:53 Urine Color Yellow (Yellow) 11/22/19 23:17 Urine Turbidity Cloudy (Clear) 11/22/19 23:17 Urine pH 6.0 (5.0-7.0) 11/22/19 23:17 Ur Specific [place] 1.010 (1.003-1.030) 11/22/19 23:17 Urine Protein >500 mg/dL (Negative) 11/22/19 23:17 Urine Glucose (UA) >=500 mg/dL (Negative) 11/22/19 23:17 Urine Ketones 20 mg/dL (Negative) 11/22/19 23:17 Urine Blood Mod (Negative) 11/22/19 23:17 Urine Nitrite Neg (Negative) 11/22/19 23:17 Urine Bilirubin Neg (Negative) 11/22/19 23:17 Urine Urobilinogen 4.0 mg/dL (<2.0) 11/22/19 23:17 Ur Leukocyte Esterase Neg (Negative) 11/22/19 23:17 Urine WBC (Auto) 40.0 /HPF (0.0-6.0) H 11/22/19 23:17 Urine RBC (Auto) 10.0 /HPF (0.0-6.0) 11/22/19 23:17 U Epithel Cells (Auto) 1.0 /HPF (0-13.0) 11/22/19 23:17 Urine Bacteria (Auto) 2+ /HPF (Negative) 11/22/19 23:17 Urine Mucus Few /HPF 11/22/19 23:17 Salicylates < 0.3 mg/dL (2.8-20.0) L 11/22/19 23:27 Urine Opiates Screen Presumptive negative 11/22/19 23:17 Urine Methadone Screen Presumptive negative 11/22/19 23:17 Acetaminophen < 5.0 ug/mL (10.0-30.0) L 11/22/19 23:27 Ur Barbiturates Screen Presumptive negative 11/22/19 23:17 Ur Phencyclidine Scrn Presumptive negative 11/22/19 23:17 Ur Amphetamines Screen Presumptive negative 11/22/19 23:17 U Benzodiazepines Scrn Presumptive negative 03/05/20 23:17 Urine Cocaine Screen Presumptive negative 11/22/19 23:17 U Marijuana (THC) Screen Presumptive negative 11/22/19 23:17 Drugs of Abuse Note Disclamer 11/22/19 23:17 Plasma/Serum Alcohol 0.08 % (0-0.07) H 11/22/19 23:27 Hepatitis A IgM Ab Non-reactive (NonReactive) 11/23/19 01:19 Hep Bs Antigen Non-reactive (Negative) 11/23/19 01:19 Hep B Core IgM Ab Non-reactive (NonReactive) 11/23/19 01:19 Hepatitis C Antibody Non-reactive (NonReactive) 11/23/19 01:19 Active Medications - Current Medications Current Medications: Generic Name Dose Route Start Last Admin Trade Name Freq PRN Reason Stop Dose Admin Lipase/Protease/Amylase 1 each 11/23/19 11:[address] 10,500 Unit FEEDTUBE PRN PRN For Clogged Feeding Tube Fentanyl 25 mcg 11/23/19 03:59 11/24/19 09:32 Sublimaze IV 25 mcg Q3HR PRN Administration Pain , Severe (7-10) Heparin Sodium (Porcine) 5,000 unit 11/23/19 22:00 11/24/19 09:31 Heparin SUB-Q 5,000 unit Q12HR LUCHO Administration Hydralazine HCl 10 mg 11/24/19 00:45 11/24/19 09:33 Apresoline IV 10 mg Q6H PRN Administration SBP > 160 Hydrophilic Ointment 1 applic 11/22/19 23:23 Vaseline Lip Therapy TP Q2HR PRN Dry Lips Piperacillin Sod/Tazobactam Sod 4.5 gm in 100 mls @ 200 mls/hr 11/23/19 06:00 11/24/19 05:42 Zosyn/Ns 4.5gm/100ml IV 200 mls/hr Q8HR LUCHO Administration Protocol Sodium Chloride 1,000 mls @ 100 mls/hr 11/23/19 04:00 11/24/19 00:56 Nacl 0.9% 1000 Ml IV 11/24/19 13:59 100 mls/hr DIRECT LUCHO Administration Thiamine HCl 100 mg/ Sodium 101 mls @ 210 mls/hr 11/23/19 14:00 11/24/19 10:36 Chloride IV 11/26/19 07:59 210 mls/hr TID LUCHO Administration Lactulose 20 gm 11/23/19 12:00 11/24/19 11:14 Cephulac PO 20 gm Q6HR LUCHO Administration Midazolam HCl 2 mg 11/23/19 00:58 11/24/19 09:34 Versed IV 2 mg Q10MIN PRN Administration Sedation Multi-Ingred Cream/Lotion/Oil/Oint 1 applic 11/22/19 23:23 Artificial Tears Ophth Oint OU Q4HR PRN Dry Eye(s) Pantoprazole Sodium 40 mg 11/23/19 10:00 11/24/19 09:32 Protonix IV 40 mg QDAY LUCHO Administration Simple Syrup 15 ml 11/23/19 11:50 Simple Syrup FEEDTUBE PRN PRN Hypoglycemia Simple Syrup 30 ml 11/23/19 11:50 Simple Syrup FEEDTUBE PRN PRN Hypoglycemia Sodium Bicarbonate 325 mg 11/23/19 11:50 Sodium Bicarbonate FEEDTUBE PRN PRN For Clogged Feeding Tube Nutrition/Malnutrition Assess - Dietary Evaluation Nutrition/Malnutrition Findings: Nutrition Notes Start: 11/23/19 11:29 Freq: Status: Active Protocol: Document 11/23/19 11:29 LM (Rec: 11/23/19 11:50 LM [email or web address]) Nutrition Notes Need for Assessment generated from: MD Order Initial or Follow up Assessment Current Diagnosis Hypertension Other Pertinent Diagnosis Cardaic arrest, ETOH dependence, UTI Current Diet no diet Labs/Tests Bili 1.3 Phos 2.4 Pertinent Medications NaCl at 100 ml/hr Height 5 ft 6 in Weight 54.8 kg [place] Body Weight (kg) 59.09 BMI 19.5 Weight Status Appropriate Subjective/Other Information MD consult to evaluate nutritional intake and TF. PT on vent. Observed moderate temporal wasting. Burn Absent Trauma Absent GI Symptoms None Current % PO Negligible Minimum of two criteria No Muscle Mass Mild Depletion (non-severe) #1 Nutrition Diagnosis Inadequate oral intake Etiology Mechanical vent As Evidenced by Signs and Symptoms Pt unable to consume PO Is patient on ventilator? Yes Is Patient Ambulatory and/or Out of Bed No REE-([facility]-confined to bed) 1402.224 Calculation Used for Recommendations [facility] Additional Notes Protein: 66-110g (1.2-2g/kg) Fluid: 1 ml/kcal Nutrition Intervention Change Diet Order: TF Nutrition Support: Vital AF 1.2 at 50 ml/hr Flush 80 ml q4h Kcal 1,440 Protein (gm) 90 Fluid (mL) 973 Goal #1 TF start/tolerance Anticipated Discharge Needs: unable to determine at this time Follow-Up By: 11/26/19 Additional Comments F/U for TF start/tolerance
[2019-11-24] MEDS ORDERED: VANCOMYCIN PHARMACY TO DOSE IV SCH (13:00)
--- NOTE | 2019-11-24 13:01 | Progress Note ---
Assessment and Plan Acute cardiopulmonary arrest with ROSC Acute hypoxemic respiratory failure on MVS Acute metabolic-toxic encephalopathy Metabolic acidosis/alcoholic acidosis/Lactic acidosis Ischemic hepatitis Leucocytosis with lactic acidosis Tobacco use disorder ALcohol use Disorder Hypokalemia-repleted High grade fevers -Get cultures, ID consult in view of high grade fevers -Agitated, moving but not purposeful -Transthoracic echocardiogram is essentially normal with preserved EF and some diastolic dysfunction -CT head was essentially normal -Continue with MVS, Lung protective strategies, monitor airway pressures -VAP bundle addressed -Continue aspiration precautions, HOB>40 -Continue daily assessment for readiness for SBT -Continue Intermittent sedation until patient's neurologic state can be better e valuated -Continue Stress ulcer prophylaxis -Continue enteric nutritional support. Monitor glycemic control, with target blood glucose 140-180 mg/dL while critically ill. -Avoid hypoglycemia - Continue daily SAT and SBT assessment as tolerated - Continue to wean supplemental oxygen for target O2 sat's > 90% -ABG and CXR in am -Continue to trend leukocytosis and lactic acidosis -Dela Cruz catheter in this acutely ill patient -Follow cultures and adjust antibiotic therapy for HILARIO and culture results -Continue to treat for hepatic encephalopathy- especially with elevated ammonia levels- lactulose -Continue thiamine, multivitamin and electrolyte replacement -Continue to avoid nephrotoxins, adjust all medications fro GFR and CrCL - Continue bronchodilators with pulmonary hygiene - Continue to avoid benzodiazepines to reduce the possibility of delirium - Continue prn analgesia per CPOT score - Continue to maintain of sleep-wake cycle, avoid delirium - PT/OT/ROM exercises- awaiting PT/OT evaluation - Continue mobility protocol and skin assessment per protocol for pressure ulcer prevention - Continue to monitor hemodynamics closely - Continue to monitor for seizures -Continue Nicotine withdrawal precautions, alcohol withdrawal precautions -Neurology consult pending - continue other care per attending / other consultants Discussed extensively with her mother and sister who are at [facility] bedside All their questions were answered. Her mother will make decisions CONDITION: CRITICAL PROGNOSIS: GUARDED CODE STATUS: FULL CODE The high probability of a clinically significant, sudden or life-threatening deterioration of the [respiratory, cardiovascular,GI/hepatology] system(s) required my full and direct attention, intervention and personal management. The aggregate critical care time was [31] minutes without overlap. Time includes spent on; [x] Data Review and interpretation [x] Patient assessment and monitoring of vital signs [x] Documentation [x] Medication orders and management Subjective Date of service: 11/24/19 Interval history: Follow up for: OSH cardiopulmonary arrest; acute hypoxic respiratory failure: acute metabolic -toxic encephalopathy; sepsis; alcohol-tobacco use disorder; ischemic heaptitis Seen and examined. Vitals, labs, medications, chart and imaging reviewed. Discussed with RT and RN. Vitals, labs, medications, chart and imaging reviewed. high grade fevers reported with agitation- non-purposeful movements. Tolerating tube feeding Objective - Exam Narrative Exam: General appearance: no acute distress, other (orally intuabted ETT at 22 cm at the lip to mVS, no dys-synchrony) Eyes: non-icteric ENT: oropharynx dry Neck: supple, no lymphadenopathy, no JVD Effort: mildly labored Ascultation: Bilateral: diminished breath sounds, rhonchi Cardiovascular: regular rate and rhythm (tachycardia), other (S1,S2) Gastrointestinal: normoactive bowel sounds, soft, non-tender, other (distended, non tender) Integumentary: normal Extremities: no cyanosis, no edema, pulses normal, no ischemia or petechiae unable to assess other (Psychiatric: Unable to assess) Vital Signs - 12hr 11/24/19 11/24/19 11/24/19 01:30 02:00 02:30 Temperature Pulse Rate 130 H 130 H 129 H Respiratory 30 H 24 27 H Rate Blood Pressure 164/92 154/84 157/91 O2 Sat by Pulse 98 100 97 Oximetry 11/24/19 11/24/19 11/24/19 03:00 03:30 04:00 Temperature 99.7 F H Pulse Rate 114 H 110 H 107 H Respiratory 25 H 24 22 Rate Blood Pressure 166/90 157/90 156/87 O2 Sat by Pulse 89 Oximetry 11/24/19 11/24/19 11/24/19 04:30 05:00 05:30 Temperature Pulse Rate 103 H 99 H 97 H Respiratory 15 24 24 Rate Blood Pressure 155/92 158/91 166/92 O2 Sat by Pulse 100 100 Oximetry 11/24/19 11/24/19 11/24/19 06:00 06:20 06:30 Temperature Pulse Rate 102 H 109 H 89 Respiratory 24 24 Rate Blood Pressure 165/109 165/109 170/92 O2 Sat by Pulse 99 98 89 Oximetry 11/24/19 11/24/19 11/24/19 07:00 07:30 08:00 Temperature 101.5 F H Pulse Rate 96 H 97 H 95 H Respiratory 23 24 24 Rate Blood Pressure 180/97 175/98 188/105 O2 Sat by Pulse 100 Oximetry 11/24/19 11/24/19 11/24/19 08:12 08:30 09:00 Temperature Pulse Rate 113 H 129 H 94 H Respiratory 21 24 Rate Blood Pressure 188/105 189/120 157/96 O2 Sat by Pulse 100 98 100 Oximetry 11/24/19 11/24/19 11/24/19 09:30 09:33 09:59 Temperature Pulse Rate 125 H 116 H Respiratory 19 Rate Blood Pressure 177/114 177/114 O2 Sat by Pulse 99 95 Oximetry 11/24/19 11/24/19 11/24/19 10:00 10:30 11:00 Temperature Pulse Rate 125 H 109 H 105 H Respiratory 20 24 24 Rate Blood Pressure 164/100 117/74 131/80 O2 Sat by Pulse 93 96 99 Oximetry 11/24/19 11/24/19 11:30 11:57 Temperature Pulse Rate 108 H 104 H Respiratory 24 Rate Blood Pressure 122/74 122/74 O2 Sat by Pulse 96 Oximetry CBC and BMP: 11/23/19 06:32 11/23/19 04:53 ABG, PT/INR, D-dimer: ABG ABG pH 7.475 pH Units (7.350-7.450) H 11/24/19 05:22 ABG pCO2 40.9 mm Hg 11/24/19 05:22 ABG pO2 88.6 mm Hg (80.0-90.0) 11/24/19 05:22 ABG O2 Saturation 97.3 % (95.0-99.0) 11/24/19 05:22 PT/INR, D-dimer PT 17.0 Sec. (12.2-14.9) H 11/23/19 03:47 INR 1.36 (0.87-1.13) H 11/23/19 03:47 Abnormal lab findings: Abnormal Labs 11/22/19 11/22/19 11/22/19 23:17 23:18 23:27 WBC 21.2 H RBC 3.59 L Hgb 9.8 L Hct MCH 27 L RDW 18.6 H Plt Count 454 H Seg Neuts % (Manual) 86.0 H Lymphocytes % (Manual) 9.0 L Seg Neutrophils # Man 18.2 H Lymphocytes # (Manual) Monocytes # (Manual) 1.1 H PT INR APTT ABG pH ABG pO2 ABG HCO3 ABG O2 Saturation ABG Base Excess ABG Hemoglobin Oxyhemoglobin Potassium Chloride Carbon Dioxide Creatinine Glucose POC Glucose 53 L Lactic Acid Calcium Phosphorus Magnesium Total Bilirubin AST ALT Alkaline Phosphatase Ammonia Total Creatine Kinase CK-MB (CK-2) CK-MB (CK-2) Rel Index Albumin Urine WBC (Auto) 40.0 H Salicylates Acetaminophen Plasma/Serum Alcohol 11/22/19 11/22/19 11/22/19 23:27 23:27 23:27 WBC RBC Hgb Hct MCH RDW Plt Count Seg Neuts % (Manual) Lymphocytes % (Manual) Seg Neutrophils # Man Lymphocytes # (Manual) Monocytes # (Manual) PT INR APTT ABG pH ABG pO2 ABG HCO3 ABG O2 Saturation ABG Base Excess ABG Hemoglobin Oxyhemoglobin Potassium 2.4 L* Chloride 85.1 L Carbon Dioxide 19 L Creatinine 0.5 L Glucose 261 H POC Glucose Lactic Acid Calcium Phosphorus Magnesium Total Bilirubin AST 609 H ALT 152 H Alkaline Phosphatase 160 H Ammonia 117.0 H Total Creatine Kinase 139 H CK-MB (CK-2) 8.3 H CK-MB (CK-2) Rel Index 5.9 H Albumin 3.6 L Urine WBC (Auto) Salicylates < 0.3 L Acetaminophen Plasma/Serum Alcohol 11/22/19 11/22/19 11/23/19 23:27 23:27 01:10 WBC RBC Hgb Hct MCH RDW Plt Count Seg Neuts % (Manual) Lymphocytes % (Manual) Seg Neutrophils # Man Lymphocytes # (Manual) Monocytes # (Manual) PT INR APTT ABG pH 7.273 L ABG pO2 209.7 H ABG HCO3 ABG O2 Saturation 99.2 H ABG Base Excess -3.9 L ABG Hemoglobin 10.6 L Oxyhemoglobin 93.9 L Potassium Chloride Carbon Dioxide Creatinine Glucose POC Glucose Lactic Acid Calcium Phosphorus Magnesium Total Bilirubin AST ALT Alkaline Phosphatase Ammonia Total Creatine Kinase CK-MB (CK-2) CK-MB (CK-2) Rel Index Albumin Urine WBC (Auto) Salicylates Acetaminophen < 5.0 L Plasma/Serum Alcohol 0.08 H 11/23/19 11/23/19 11/23/19 01:19 01:19 03:47 WBC RBC Hgb Hct MCH RDW Plt Count Seg Neuts % (Manual) Lymphocytes % (Manual) Seg Neutrophils # Man Lymphocytes # (Manual) Monocytes # (Manual) PT 16.3 H INR 1.29 H APTT ABG pH ABG pO2 ABG HCO3 ABG O2 Saturation ABG Base Excess ABG Hemoglobin Oxyhemoglobin Potassium Chloride Carbon Dioxide Creatinine Glucose POC Glucose Lactic Acid 2.10 H* 5.00 H* Calcium Phosphorus Magnesium Total Bilirubin AST ALT Alkaline Phosphatase Ammonia Total Creatine Kinase CK-MB (CK-2) CK-MB (CK-2) Rel Index Albumin Urine WBC (Auto) Salicylates Acetaminophen Plasma/Serum Alcohol 11/23/19 11/23/19 11/23/19 03:47 03:47 04:53 WBC RBC Hgb 9.4 L Hct MCH RDW Plt Count Seg Neuts % (Manual) Lymphocytes % (Manual) Seg Neutrophils # Man Lymphocytes # (Manual) Monocytes # (Manual) PT 17.0 H INR 1.36 H APTT 128.2 H* ABG pH ABG pO2 ABG HCO3 ABG O2 Saturation ABG Base Excess ABG Hemoglobin Oxyhemoglobin Potassium Chloride Carbon Dioxide 18 L Creatinine 0.5 L Glucose 105 H POC Glucose Lactic Acid Calcium 8.3 L Phosphorus 2.40 L Magnesium Total Bilirubin 1.30 H AST 761 H ALT 158 H Alkaline Phosphatase 143 H Ammonia Total Creatine Kinase CK-MB (CK-2) CK-MB (CK-2) Rel Index Albumin 2.8 L Urine WBC (Auto) Salicylates Acetaminophen Plasma/Serum Alcohol 11/23/19 11/23/19 11/23/19 05:12 06:32 06:32 WBC 16.8 H RBC 3.31 L Hgb 8.9 L Hct 28.7 L MCH 27 L RDW 18.6 H Plt Count Seg Neuts % (Manual) 94.0 H Lymphocytes % (Manual) 1.0 L Seg Neutrophils # Man 15.8 H Lymphocytes # (Manual) 0.2 L Monocytes # (Manual) PT INR APTT ABG pH ABG pO2 ABG HCO3 ABG O2 Saturation ABG Base Excess -3.2 L ABG Hemoglobin 9.0 L Oxyhemoglobin 93.6 L Potassium Chloride Carbon Dioxide Creatinine Glucose POC Glucose Lactic Acid 3.30 H* Calcium Phosphorus Magnesium Total Bilirubin AST ALT Alkaline Phosphatase Ammonia Total Creatine Kinase CK-MB (CK-2) CK-MB (CK-2) Rel Index Albumin Urine WBC (Auto) Salicylates Acetaminophen Plasma/Serum Alcohol 11/24/19 11/24/19 11/24/19 04:35 04:35 05:22 WBC RBC Hgb Hct MCH RDW Plt Count Seg Neuts % (Manual) Lymphocytes % (Manual) Seg Neutrophils # Man Lymphocytes # (Manual) Monocytes # (Manual) PT INR APTT ABG pH 7.475 H ABG pO2 ABG HCO3 29.4 H ABG O2 Saturation ABG Base Excess 5.4 H ABG Hemoglobin 9.0 L Oxyhemoglobin Potassium Chloride Carbon Dioxide Creatinine Glucose POC Glucose Lactic Acid Calcium Phosphorus Magnesium 1.40 L Total Bilirubin AST ALT Alkaline Phosphatase Ammonia 98.0 H Total Creatine Kinase CK-MB (CK-2) CK-MB (CK-2) Rel Index Albumin Urine WBC (Auto) Salicylates Acetaminophen Plasma/Serum Alcohol
[2019-11-24] MEDS: VANCOMYCIN/NS 1 GM/250 ML 1 GM/250 ML BAG IV SCH ×2 (14:39→21:28)
[2019-11-25] MEDS: fentaNYL DRIP Premix 2,000 MCG/100 ML BAG IV SCH ×2 (01:02→16:55)
[2019-11-25 05:05] LABS: ABG Base Excess 6.9 mmol/L (-2.0-3.0); ABG HCO3 32.3 mmol/L (20.0-26.0); ABG Methemoglobin 0.5 % (0.0-1.5); ABG Oxygen Saturation 96.9 % (95.0-99.0); ABG PCO2 50.8 mm Hg; ABG PH 7.422 pH Units (7.350-7.450); ABG PO2 82.7 mm Hg (80.0-90.0)
[2019-11-25 05:44] LABS: Basophils % (Auto) 0.2 % (0.0-1.8); Eosinophils % (Auto) 0.2 % (0.0-4.3); Hematocrit 24.6 % (30.3-42.9); Hemoglobin 7.8 gm/dl (10.1-14.3); Lymphocytes # (Auto) 1.3 K/mm3 (1.2-5.4); Lymphocytes % (Auto) 7.7 % (13.4-35.0); Mean Corpuscular HGB Conc 32 % (30-34); Mean Corpuscular Volume 86 fl (79-97); Monocytes # (Auto) 1.7 K/mm3 (0.0-0.8); Monocytes % (Auto) 9.7 % (0.0-7.3); Platelet Count 299 K/mm3 (140-440); Red Blood Count 2.88 M/mm3 (3.65-5.03); Red Cell Distribution Width 18.5 % (13.2-15.2)
[2019-11-25] MEDS: LACTULOSE 20 GM/30 ML ORAL LIQD PO SCH ×3 (06:04→19:38)
[2019-11-25] MEDS: PIPERACIL/TAZOBACTA 4.5/NS 100 4.5 GM/100 ML VIAL IV SCH (06:04)
[2019-11-25 06:10] LABS: Alanine Aminotransferase 71 units/L (7-56); Albumin 2.9 g/dL (3.9-5); BUN/Creatinine Ratio 17; Blood Urea Nitrogen 10 mg/dL (7-17); Hemolysis Index 1
--- NOTE | 2019-11-25 06:35 | XRay Report ---
CHEST 1 VIEW INDICATION / CLINICAL INFORMATION: follow up respiratory failure. COMPARISON: 11/24/2019 FINDINGS: SUPPORT DEVICES: Stable, satisfactory device positioning. HEART / MEDIASTINUM: No significant abnormality. LUNGS / PLEURA: No significant pulmonary or pleural abnormality. No pneumothorax. ADDITIONAL FINDINGS: No significant additional findings. IMPRESSION: 1. No acute findings. No interval change. Signer Name: Mitra Odell MD Signed: 11/25/2019 6:31 AM Workstation Name: [id number]
[2019-11-25] MEDS: VANCOMYCIN/NS 1 GM/250 ML 1 GM/250 ML BAG IV SCH (06:41)
[2019-11-25] MEDS: THIAMINE 100 MG in SODIUM CHLORIDE 0.9% 100 ML IV SCH ×3 (09:50→21:13)
[2019-11-25] MEDS: POTASSIUM CHLORIDE 10 MEQ 10 MEQ/100 ML BAG IV SCH ×4 (10:45→19:30)
[2019-11-25] MEDS: HEPARIN 5,000 UNIT/1 ML VIAL SUB-Q SCH ×2 (11:02→21:13)
[2019-11-25] MEDS: PANTOPRAZOLE 40 MG INJ IV SCH (11:02)
[2019-11-25] MEDS: POTASSIUM CHLORIDE 20 MEQ 20 MEQ/100 ML BAG IV SCH (11:03)
--- NOTE | 2019-11-25 11:40 | Progress Note ---
Assessment and Plan Assessment and plan: 54-year-old female with a past medical history of Hypertension, Depression, Tobacco use Disorder, Alcohol use Disorder as confirmed by Daughter and pt's mother presents to the hospital status post cardiac arrest. Patient is from home and family called EMS at 22: 27 for the pt who had told family members that she was not feeling good and c/o her chronic hip pain. She urinated and then was speaking, then she " froze and was rigid " per daughter and she became unresponsive and stopped breathing. Immediately, family began CPR. EMS found pt in PEA. Upon their arrival patient in SinuS Tachycardia.. They were unable to intubate patient with a ET tube because she was clenching down therefore Joe airway placed. Patient received Narcan and Epinephrine. Patient's rhythm changed to PEA to sinus bradycardia, to PEA, then to sinus tach after receiving Narcan and Epinephrine. Per the ED physician who evaluated pt, Patient presented with a pulse, intermittent respirations, and bagging support via Joe airway with O2 sat of 100%. Accu-Chek of 71 obtained by EMS. Acute Respiratory Arrest -Patient is intubated and on mechanical ventilation - CTA was done and negative for PE, heparin GTT discontinued - Echo quality is poor, showed diastolic dysfunction - continue ICU monitoring -Patient move her extremities and open her eyes when sedation is decreased Patient has elevated ammonia level and on lactulose Metabolic Acidosis -Alcohol ketoacidosis vs hypoprofusion - IVF -Continue to monitor ELevated LFTs - ischemic hepatitis. could worsen - monitor LFTs Leucocytosis, tracheal aspirate grew H. influenza - reactive vs aspiration Pneumonitis - IV zosyn - hemodynamically stable ALcohol USe Disorder - given ongoing Alcohol use,almost daily, IV Thiamine for now - monitor Severe hypokalemia -Repleted -We will check magnesium and potassium level FUll code The high probability of a clinically significant, sudden or life threatening deterioration of the [neurology,respiratory] system(s) required my full and direct attention, intervention and personal management. The aggregate critical care time was [32] minutes. This time is in addition to time spent performing reported procedures but includes the following: [x] Data Review and interpretation [x] Patient assessment and monitoring of vital signs [x] Documentation [x] Medication orders and management History Interval history: Patient was seen and evaluated this morning, patient is intubated and on mechanical ventilation. Patient was agitated and moving too much this morning and sedatives were increased. Hospitalist Physical - Physical exam Narrative exam: Patient is intubated and on mechanical ventilation The patient appeared well nourished and normally developed. Vital signs as documented. Head exam is unremarkable. No scleral icterus . Neck is without jugular venous distension, thyromegaly, or carotid bruits. Lungs are clear to auscultation. Cardiac exam reveals regular rate and Rhythm. Abdominal exam reveals normal bowel sounds, nontender, no organomegaly. Extremities are nonedematous and both femoral and pedal pulses are normal. 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 - Constitutional Vitals: Temp Pulse Resp BP Pulse Ox 98.5 F 102 H 21 146/74 96 11/25/19 08:00 11/25/19 09:00 11/25/19 09:00 11/25/19 09:00 11/25/19 09:00 General appearance: Present: no acute distress, well-nourished Results - Labs CBC & Chem 7: 11/25/19 05:05 11/25/19 05:05 Labs: Laboratory Last Values WBC 17.3 K/mm3 (4.5-11.0) H 11/25/19 05:05 RBC 2.88 M/mm3 (3.65-5.03) L 11/25/19 05:05 Hgb 7.8 gm/dl (10.1-14.3) L 11/25/19 05:05 Hct 24.6 % (30.3-42.9) L 11/25/19 05:05 MCV 86 fl (79-97) 11/25/19 05:05 MCH 27 pg (28-32) L 11/25/19 05:05 MCHC 32 % (30-34) 11/25/19 05:05 RDW 18.5 % (13.2-15.2) H 11/25/19 05:05 Plt Count 299 K/mm3 (140-440) 11/25/19 05:05 Lymph % (Auto) 7.7 % (13.4-35.0) L 11/25/19 05:05 [place] % (Auto) 9.7 % (0.0-7.3) H 11/25/19 05:05 Eos % (Auto) 0.2 % (0.0-4.3) 11/25/19 05:05 Baso % (Auto) 0.2 % (0.0-1.8) 11/25/19 05:05 Lymph # 1.3 K/mm3 (1.2-5.4) 11/25/19 05:05 [place] # 1.7 K/mm3 (0.0-0.8) H 11/25/19 05:05 Eos # 0.0 K/mm3 (0.0-0.4) 11/25/19 05:05 Baso # 0.0 K/mm3 (0.0-0.1) 11/25/19 05:05 Add Manual Diff Complete 11/23/19 06:32 Total Counted 100 11/23/19 06:32 Seg Neutrophils % 82.2 % (40.0-70.0) H 11/25/19 05:05 Seg Neuts % (Manual) 94.0 % (40.0-70.0) H 11/23/19 06:32 Band Neutrophils % 0 % 11/23/19 06:32 Lymphocytes % (Manual) 1.0 % (13.4-35.0) L 11/23/19 06:32 Reactive Lymphs % (Man) 0 % 11/23/19 06:32 Monocytes % (Manual) 4.0 % (0.0-7.3) 11/23/19 06:32 Eosinophils % (Manual) 1.0 % (0.0-4.3) 11/23/19 06:32 Basophils % (Manual) 0 % (0.0-1.8) 11/23/19 06:32 Metamyelocytes % 0 % 11/23/19 06:32 Myelocytes % 0 % 11/23/19 06:32 Promyelocytes % 0 % 11/23/19 06:32 Blast Cells % 0 % 11/23/19 06:32 Nucleated RBC % Not Reportable 11/23/19 06:32 Seg Neutrophils # 14.2 K/mm3 (1.8-7.7) H 11/25/19 05:05 Seg Neutrophils # Man 15.8 K/mm3 (1.8-7.7) H 11/23/19 06:32 Band Neutrophils # 0.0 K/mm3 11/23/19 06:32 Lymphocytes # (Manual) 0.2 K/mm3 (1.2-5.4) L 11/23/19 06:32 Abs React Lymphs (Man) 0.0 K/mm3 11/23/19 06:32 Monocytes # (Manual) 0.7 K/mm3 (0.0-0.8) 11/23/19 06:32 Eosinophils # (Manual) 0.2 K/mm3 (0.0-0.4) 11/23/19 06:32 Basophils # (Manual) 0.0 K/mm3 (0.0-0.1) 11/23/19 06:32 Metamyelocytes # 0.0 K/mm3 11/23/19 06:32 Myelocytes # 0.0 K/mm3 11/23/19 06:32 Promyelocytes # 0.0 K/mm3 11/23/19 06:32 Blast Cells # 0.0 K/mm3 11/23/19 06:32 WBC Morphology Not Reportable 11/23/19 06:32 Hypersegmented Neuts Not Reportable 11/23/19 06:32 Hyposegmented Neuts Not Reportable 11/23/19 06:32 Hypogranular Neuts Not Reportable 11/23/19 06:32 Smudge Cells Not Reportable 11/23/19 06:32 Toxic Granulation Not Reportable 11/23/19 06:32 Toxic Vacuolation Not Reportable 11/23/19 06:32 Dohle Bodies Not Reportable 11/23/19 06:32 Pelger-Huet Anomaly Not Reportable 11/23/19 06:32 Dominique Rods Not Reportable 11/23/19 06:32 Platelet Estimate Consistent w auto 11/23/19 06:32 Clumped Platelets Not Reportable 11/23/19 06:32 Plt Clumps, EDTA Not Reportable 11/23/19 06:32 Large Platelets Not Reportable 11/23/19 06:32 Giant Platelets Not Reportable 11/23/19 06:32 Platelet Satelliting Not Reportable 11/23/19 06:32 Plt Morphology Comment Not Reportable 11/23/19 06:32 RBC Morphology Not Reportable 11/23/19 06:32 Dimorphic RBCs Not Reportable 11/23/19 06:32 Polychromasia Not Reportable 11/23/19 06:32 Hypochromasia Not Reportable 11/23/19 06:32 Poikilocytosis Not Reportable 11/23/19 06:32 Anisocytosis 1+ 11/23/19 06:32 Microcytosis Not Reportable 11/23/19 06:32 Macrocytosis 1+ 11/23/19 06:32 Spherocytes Not Reportable 11/23/19 06:32 Pappenheimer Bodies Not Reportable 11/23/19 06:32 Sickle Cells Not Reportable 11/23/19 06:32 Target Cells Not Reportable 11/23/19 06:32 Tear Drop Cells Not Reportable 11/23/19 06:32 Ovalocytes Not Reportable 11/23/19 06:32 Helmet Cells Not Reportable 11/23/19 06:32 [place] Bodies Not Reportable 11/23/19 06:32 [place] Rings Not Reportable 11/23/19 06:32 [place] Cells Not Reportable 11/23/19 06:32 Bite Cells Not Reportable 11/23/19 06:32 Crenated Cell Not Reportable 11/23/19 06:32 Elliptocytes Not Reportable 11/23/19 06:32 Acanthocytes (Spur) Not Reportable 11/23/19 06:32 Rouleaux Not Reportable 11/23/19 06:32 Hemoglobin C Crystals Not Reportable 11/23/19 06:32 Schistocytes Not Reportable 11/23/19 06:32 Malaria parasites Not Reportable 11/23/19 06:32 Gregg Bodies Not Reportable 11/23/19 06:32 Hem Pathologist Commnt No 11/23/19 06:32 PT 17.0 Sec. (12.2-14.9) H 11/23/19 03:47 INR 1.36 (0.87-1.13) H 11/23/19 03:47 APTT 128.2 Sec. (24.2-36.6) H* 11/23/19 03:47 Heparin Anti-Xa Level 0.31 U.I./ml (0.3-0.7) 11/23/19 09:03 ABG pH 7.422 pH Units (7.350-7.450) 11/25/19 04:34 ABG pCO2 50.8 mm Hg 11/25/19 04:34 ABG pO2 82.7 mm Hg (80.0-90.0) 11/25/19 04:34 ABG HCO3 32.3 mmol/L (20.0-26.0) H 11/25/19 04:34 ABG O2 Saturation 96.9 % (95.0-99.0) 11/25/19 04:34 ABG O2 Content 14.1 (0.0-44) 11/25/19 04:34 ABG Base Excess 6.9 mmol/L (-2.0-3.0) H 11/25/19 04:34 ABG Hemoglobin 10.6 gm/dl (12.0-16.0) L 11/25/19 04:34 ABG Carboxyhemoglobin 2.2 % (0.0-5.0) 11/25/19 04:34 ABG Methemoglobin 0.5 % (0.0-1.5) 11/25/19 04:34 Oxyhemoglobin 94.3 % (95.0-99.0) L 11/25/19 04:34 FiO2 30 % 11/25/19 04:34 Sodium 152 mmol/L (137-145) H D 11/25/19 05:05 Potassium 2.3 mmol/L (3.6-5.0) L* D 11/25/19 05:05 Chloride 107.8 mmol/L (98-107) H 11/25/19 05:05 Carbon Dioxide 31 mmol/L (22-30) H D 11/25/19 05:05 Anion Gap 16 mmol/L 11/25/19 05:05 BUN 10 mg/dL (7-17) 11/25/19 05:05 Creatinine 0.6 mg/dL (0.7-1.2) L 11/25/19 05:05 Estimated GFR > 60 ml/min 11/25/19 05:05 BUN/Creatinine Ratio 17 % 11/25/19 05:05 Glucose 148 mg/dL (65-100) H 11/25/19 05:05 POC Glucose 53 (70-105) L 11/22/19 23:18 Lactic Acid 1.80 mmol/L (0.7-2.0) 11/25/19 05:05 Calcium 9.0 mg/dL (8.4-10.2) 11/25/19 05:05 Phosphorus 2.40 mg/dL (2.5-4.5) L 11/23/19 04:53 Magnesium 1.40 mg/dL (1.7-2.3) L 11/24/19 04:35 Total Bilirubin 0.80 mg/dL (0.1-1.2) 11/25/19 05:05 AST 105 units/L (5-40) H 11/25/19 05:05 ALT 71 units/L (7-56) H 11/25/19 05:05 Alkaline Phosphatase 155 units/L (35-129) H 11/25/19 05:05 Ammonia 98.0 umol/L (25-60) H 11/24/19 04:35 Total Creatine Kinase 139 units/L (30-135) H 11/22/19 23:27 CK-MB (CK-2) 8.3 ng/mL (0.0-4.0) H 11/22/19 23:27 CK-MB (CK-2) Rel Index 5.9 (0-4) H 11/22/19 23:27 Troponin T < 0.010 ng/mL (0.00-0.029) 11/22/19 23:27 Total Protein 5.2 g/dL (6.3-8.2) L D 11/25/19 05:05 Albumin 2.9 g/dL (3.9-5) L 11/25/19 05:05 Albumin/Globulin Ratio 1.3 % 11/25/19 05:05 Lipase 18 units/L (13-60) 11/23/19 00:34 Procalcitonin 1.09 ng/mL (<0.15) 11/23/19 04:53 Urine Color Yellow (Yellow) 11/22/19 23:17 Urine Turbidity Cloudy (Clear) 11/22/19 23:17 Urine pH 6.0 (5.0-7.0) 11/22/19 23:17 Ur Specific [place] 1.010 (1.003-1.030) 11/22/19 23:17 Urine Protein >500 mg/dL (Negative) 11/22/19 23:17 Urine Glucose (UA) >=500 mg/dL (Negative) 11/22/19 23:17 Urine Ketones 20 mg/dL (Negative) 11/22/19 23:17 Urine Blood Mod (Negative) 11/22/19 23:17 Urine Nitrite Neg (Negative) 11/22/19 23:17 Urine Bilirubin Neg (Negative) 11/22/19 23:17 Urine Urobilinogen 4.0 mg/dL (<2.0) 11/22/19 23:17 Ur Leukocyte Esterase Neg (Negative) 11/22/19 23:17 Urine WBC (Auto) 40.0 /HPF (0.0-6.0) H 11/22/19 23:17 Urine RBC (Auto) 10.0 /HPF (0.0-6.0) 11/22/19 23:17 U Epithel Cells (Auto) 1.0 /HPF (0-13.0) 11/22/19 23:17 Urine Bacteria (Auto) 2+ /HPF (Negative) 11/22/19 23:17 Urine Mucus Few /HPF 11/22/19 23:17 Salicylates < 0.3 mg/dL (2.8-20.0) L 11/22/19 23:27 Urine Opiates Screen Presumptive negative 11/22/19 23:17 Urine Methadone Screen Presumptive negative 11/22/19 23:17 Acetaminophen < 5.0 ug/mL (10.0-30.0) L 11/22/19 23:27 Ur Barbiturates Screen Presumptive negative 11/22/19 23:17 Ur Phencyclidine Scrn Presumptive negative 11/22/19 23:17 Ur Amphetamines Screen Presumptive negative 11/22/19 23:17 U Benzodiazepines Scrn Presumptive negative 11/22/19 23:17 Urine Cocaine Screen Presumptive negative 11/22/19 23:17 U Marijuana (THC) Screen Presumptive negative 11/22/19 23:17 Drugs of Abuse Note Disclamer 11/22/19 23:17 Plasma/Serum Alcohol 0.08 % (0-0.07) H 11/22/19 23:27 Hepatitis A IgM Ab Non-reactive (NonReactive) 11/23/19 01:19 Hep Bs Antigen Non-reactive (Negative) 11/23/19 01:19 Hep B Core IgM Ab Non-reactive (NonReactive) 11/23/19 01:19 Hepatitis C Antibody Non-reactive (NonReactive) 11/23/19 01:19 Active Medications - Current Medications Current Medications: Generic Name Dose Route Start Last Admin Trade Name Freq PRN Reason Stop Dose Admin Lipase/Protease/Amylase 1 each 11/23/19 11:[address] 10,500 Unit FEEDTUBE PRN PRN For Clogged Feeding Tube Heparin Sodium (Porcine) 5,000 unit 11/23/19 22:00 11/25/19 11:02 Heparin SUB-Q 5,000 unit Q12HR LUCHO Administration Hydralazine HCl 10 mg 11/24/19 00:45 11/24/19 09:33 Apresoline IV 10 mg Q6H PRN Administration SBP > 160 Hydrophilic Ointment 1 applic 11/22/19 23:23 Vaseline Lip Therapy TP Q2HR PRN Dry Lips Piperacillin Sod/Tazobactam Sod 4.5 gm in 100 mls @ 200 mls/hr 11/23/19 06:00 11/25/19 06:04 Zosyn/Ns 4.5gm/100ml IV 200 mls/hr Q8HR LUCHO Administration Protocol Thiamine HCl 100 mg/ Sodium 101 mls @ 210 mls/hr 11/23/19 14:00 11/25/19 09:50 Chloride IV 11/26/19 07:59 210 mls/hr TID LUCHO Administration Vancomycin HCl 1 gm in 250 mls @ 250 mls/hr 11/24/19 13:00 11/25/19 06:41 Vancomycin/Ns 1 Gm/250 Ml IV 250 mls/hr Q8H LUCHO Administration Fentanyl Citrate 2,000 mcg in 100 mls @ 2.74 mls/hr 11/24/19 23:45 11/25/19 11:12 Fentanyl Drip Premix IV 1 mcg/kg/hr TITR LUCHO 2.74 mls/hr Titration Protocol 1 MCG/KG/HR Potassium Chloride 10 meq in 100 mls @ 100 mls/hr 11/25/19 10:00 11/25/19 10:45 Kcl 10meq/100ml IV 11/25/19 13:59 100 mls/hr Q1H LUCHO Administration Lactulose 20 gm 11/23/19 12:00 11/25/19 11:04 Cephulac PO 20 gm Q6HR LUCHO Administration Midazolam HCl 2 mg 11/23/19 00:58 11/24/19 14:40 Versed IV 2 mg Q10MIN PRN Administration Sedation Multi-Ingred Cream/Lotion/Oil/Oint 1 applic 11/22/19 23:23 Artificial Tears Ophth Oint OU Q4HR PRN Dry Eye(s) Pantoprazole Sodium 40 mg 11/23/19 10:00 11/25/19 11:02 Protonix IV 40 mg QDAY LUCHO Administration Simple Syrup 15 ml 11/23/19 11:50 Simple Syrup FEEDTUBE PRN PRN Hypoglycemia Simple Syrup 30 ml 11/23/19 11:50 Simple Syrup FEEDTUBE PRN PRN Hypoglycemia Sodium Bicarbonate 325 mg 11/23/19 11:50 Sodium Bicarbonate FEEDTUBE PRN PRN For Clogged Feeding Tube Nutrition/Malnutrition Assess - Dietary Evaluation Nutrition/Malnutrition Findings: Nutrition Notes Start: 11/23/19 11:29 Freq: Status: Active Protocol: Document 11/23/19 11:29 LM (Rec: 11/23/19 11:50 LM [email or web address]) Nutrition Notes Need for Assessment generated from: MD Order Initial or Follow up Assessment Current Diagnosis Hypertension Other Pertinent Diagnosis Cardaic arrest, ETOH dependence, UTI Current Diet no diet Labs/Tests Bili 1.3 Phos 2.4 Pertinent Medications NaCl at 100 ml/hr Height 5 ft 6 in Weight 54.8 kg [place] Body Weight (kg) 59.09 BMI 19.5 Weight Status Appropriate Subjective/Other Information MD consult to evaluate nutritional intake and TF. PT on vent. Observed moderate temporal wasting. Burn Absent Trauma Absent GI Symptoms None Current % PO Negligible Minimum of two criteria No Muscle Mass Mild Depletion (non-severe) #1 Nutrition Diagnosis Inadequate oral intake Etiology Mechanical vent As Evidenced by Signs and Symptoms Pt unable to consume PO Is patient on ventilator? Yes Is Patient Ambulatory and/or Out of Bed No REE-([facility]-confined to bed) 1402.224 Calculation Used for Recommendations [facility] Additional Notes Protein: 66-110g (1.2-2g/kg) Fluid: 1 ml/kcal Nutrition Intervention Change Diet Order: TF Nutrition Support: Vital AF 1.2 at 50 ml/hr Flush 80 ml q4h Kcal 1,440 Protein (gm) 90 Fluid (mL) 973 Goal #1 TF start/tolerance Anticipated Discharge Needs: unable to determine at this time Follow-Up By: 11/26/19 Additional Comments F/U for TF start/tolerance
--- NOTE | 2019-11-25 11:42 | Consultation ---
History of Present Illness - Reason for Consult Consult date: 11/25/19 Fever, sepsis Requesting physician: MARINO BUSTOS - History of Present Illness The patient is a 54-year-old female with hypertension, depression, tobacco use, alcohol abuse was brought into the emergency room on 11/22/2019 after she went into respiratory arrest at home requiring CPR by EMS. Upon presentation to ER, patient was intubated, placed on mechanical ventilation. She was found to have an elevated ammonia level as well as blood alcohol level. She has fever, leukocytosis, infectious diseases was consulted for antibiotic recommendations. Review of Systems: Unable to perform due to altered mental status. Past History Past Medical History: hypertension, other (ALcohol use disorder, Tobacco use di sorder) Social history: alcohol abuse, full code. denies: IV drug use Family history: hypertension Medications and Allergies Allergies Allergy/AdvReac Type Severity Reaction Status Date / Time No Known Allergies Allergy Verified 03/28/17 11:20 Home Medications Medication Instructions Recorded Confirmed Last Taken Type Folic Acid [Folvite] 1 mg PO QDAY #30 tablet 05/25/18 11/23/19 Unknown Rx Potassium Chloride [K-Dur] 40 meq PO TID PRN #180 tablet 05/25/18 11/23/19 Unknown Rx Mirtazapine [Remeron 30mg Rapdis] 30 mg PO DAILY 11/23/19 11/23/19 Unknown Hi story Quetiapine Fumarate [Seroquel Xr] 200 mg PO HS 11/23/19 11/23/19 Unknown History Sertraline [Zoloft] 25 mg PO QDAY 11/23/19 11/23/19 Unknown History amLODIPine [Norvasc] 5 mg PO DAILY 11/23/19 11/23/19 Unknown History hydrOXYzine PAMOATE [Vistaril] 25 mg PO BID 11/23/19 11/23/19 Unknown History Active Meds: Active Medications Lipase/Protease/Amylase (Pancrestefani [place] 10,500 Unit) 1 each FEEDTUBE PRN PRN PRN Reason: For Clogged Feeding Tube Heparin Sodium (Porcine) (Heparin) 5,000 unit SUB-Q Q12HR LUCHO Last Admin: 11/25/19 11:02 Dose: 5,000 unit Documented by: Hydralazine HCl (Apresoline) 10 mg IV Q6H PRN PRN Reason: SBP > 160 Last Admin: 11/24/19 09:33 Dose: 10 mg Documented by: Hydrophilic Ointment (Vaseline Lip Therapy) 1 applic TP Q2HR PRN PRN Reason: Dry Lips Piperacillin Sod/Tazobactam Sod (Zosyn/Ns 4.5gm/100ml) 4.5 gm in 100 mls @ 200 mls/hr IV Q8HR LUCHO; Protocol Last Admin: 11/25/19 06:04 Dose: 200 mls/hr Documented by: Thiamine HCl 100 mg/ Sodium (Chloride) 101 mls @ 210 mls/hr IV TID ON LICENSE OF [facility] Stop: 11/26/19 07:59 Last Admin: 11/25/19 09:50 Dose: 210 mls/hr Documented by: Vancomycin HCl (Vancomycin/Ns 1 Gm/250 Ml) 1 gm in 250 mls @ 250 mls/hr IV Q8H ON LICENSE OF [facility] Last Admin: 11/25/19 06:41 Dose: 250 mls/hr Documented by: Fentanyl Citrate (Fentanyl Drip Premix) 2,000 mcg in 100 mls @ 2.74 mls/hr IV TITR ON LICENSE OF [facility]; Protocol Last Titration: 11/25/19 11:12 Dose: 1 mcg/kg/hr, 2.74 mls/hr Documented by: Potassium Chloride (Kcl 10meq/100ml) 10 meq in 100 mls @ 100 mls/hr IV Q1H ON LICENSE OF [facility] Stop: 11/25/19 13:59 Last Admin: 11/25/19 10:45 Dose: 100 mls/hr Documented by: Lactulose (Cephulac) 20 gm PO Q6HR ON LICENSE OF [facility] Last Admin: 11/25/19 11:04 Dose: 20 gm Documented by: Midazolam HCl (Versed) 2 mg IV Q10MIN PRN PRN Reason: Sedation Last Admin: 11/24/19 14:40 Dose: 2 mg Documented by: Multi-Ingred Cream/Lotion/Oil/Oint (Artificial Tears Ophth Oint) 1 applic OU Q4HR PRN PRN Reason: Dry Eye(s) Pantoprazole Sodium (Protonix) 40 mg IV QDAY ON LICENSE OF [facility] Last Admin: 11/25/19 11:02 Dose: 40 mg Documented by: Simple Syrup (Simple Syrup) 15 ml FEEDTUBE PRN PRN PRN Reason: Hypoglycemia Simple Syrup (Simple Syrup) 30 ml FEEDTUBE PRN PRN PRN Reason: Hypoglycemia Sodium Bicarbonate (Sodium Bicarbonate) 325 mg FEEDTUBE PRN PRN PRN Reason: For Clogged Feeding Tube Physical Examination - Physical Exam Narrative exam: Physical Exam: Constitutional: sedated, intubated Head, Ears, Nose: Normocephalic, atraumatic. External ears, nose normal Eyes: Conjunctivae/corneas clear. No icterus. No ptosis. Neck: intubated Oral: intubated Cardiovascular: S1, S2 normal. Respiratory: Good air entry, clear to auscultation bilaterally GI: Distended, bowel sounds present. Rectal tube present with liquid stool Musculoskeletal: No pedal edema, no cyanosis. Skin: No rash or abscess Hem/Lymphatic: No palpable cervical or supraclavicular nodes. No lymphangitis Psych: Somewhat restless Neurological: sedated, intubated, on vent - Constitutional Vitals: Vital Signs Temp Pulse Resp BP Pulse Ox 98.5 F 102 H 21 146/74 96 11/25/19 08:00 11/25/19 09:00 11/25/19 09:00 11/25/19 09:00 11/25/19 09:00 Temperature -Last 24 Hours Temperature 98.5 F Temperature 100.6 F Temperature 100.1 F Temperature 100.3 F Temperature 101.2 F Temperature 100.4 F Results - Labs CBC & Chem 7: 11/25/19 05:05 11/25/19 05:05 Labs: Abnormal lab results 11/25/19 11/25/19 11/25/19 Range/Units 04:34 05:05 05:05 WBC 17.3 H (4.5-11.0) K/mm3 RBC 2.88 L (3.65-5.03) M/mm3 Hgb 7.8 L (10.1-14.3) gm/dl Hct 24.6 L (30.3-42.9) % MCH 27 L (28-32) pg RDW 18.5 H (13.2-15.2) % Lymph % (Auto) 7.7 L (13.4-35.0) % [place] % (Auto) 9.7 H (0.0-7.3) % [place] # 1.7 H (0.0-0.8) K/mm3 Seg Neutrophils % 82.2 H (40.0-70.0) % Seg Neutrophils # 14.2 H (1.8-7.7) K/mm3 ABG HCO3 32.3 H (20.0-26.0) mmol/L ABG Base Excess 6.9 H (-2.0-3.0) mmol/L ABG Hemoglobin 10.6 L (12.0-16.0) gm/dl Oxyhemoglobin 94.3 L (95.0-99.0) % Sodium 152 H D (137-145) mmol/L Potassium 2.3 L* D (3.6-5.0) mmol/L Chloride 107.8 H (98-107) mmol/L Carbon Dioxide 31 H D (22-30) mmol/L Creatinine 0.6 L (0.7-1.2) mg/dL Glucose 148 H (65-100) mg/dL AST 105 H (5-40) units/L ALT 71 H (7-56) units/L Alkaline Phosphatase 155 H (35-129) units/L Total Protein 5.2 L D (6.3-8.2) g/dL Albumin 2.9 L (3.9-5) g/dL - Imaging and Cardiology Chest x-ray: report reviewed, image reviewed (Chest x-ray today shows no evidence of pneumonia) CT scan - chest: report reviewed, image reviewed (CTA chest showed minimal upper lobe pneumonitis) Assessment and Plan Cultures: 11/22/2019 urine culture: In process 11/22/2019 tracheal aspirate culture: H. influenzae 11/23/2019 blood culture: No growth in 48 hours A/P: 54-year-old female with hypertension, depression, tobacco use, alcohol abuse was brought into the emergency room on 11/22/2019 after she went into respiratory arrest at home requiring CPR by EMS: #Sepsis: Source could be UTI versus pneumonitis versus SBP. UA showed pyuria. #Pneumonitis, acute respiratory failure: Possibly aspiration. No dense pneumonia seen. On mechanical ventilation. #Elevated LFTs, alcohol abuse, status post arrest requiring CPR: Trend LFTs. Also recommend abdominal ultrasound. #Acute encephalopathy: Likely multifactorial from alcohol abuse, status post arrest, hypernatremia Recs: Antibiotics streamlined to IV ceftriaxone 2 g daily (will cover H.influenzae, UTI and for ?SBP) Follow-up cultures Abdominal ultrasound ordered to evaluate for ascites and hepatobiliary system Isaías Aaron MD, FACP [facility] C: [phone] O: [phone] F: [phone]
[2019-11-25] MEDS ORDERED: FUROSEMIDE 40 MG/4 ML INJ IV ONE (13:09)
--- NOTE | 2019-11-25 15:29 | Progress Note ---
Assessment and Plan Acute cardiopulmonary arrest with ROSC Acute hypoxemic respiratory failure on MVS Acute metabolic-toxic encephalopathy Metabolic acidosis/alcoholic acidosis/Lactic acidosis Ischemic hepatitis Leucocytosis with lactic acidosis Tobacco use disorder ALcohol use Disorder Hypokalemia High grade fevers Angioedema -Agitated, moving but not purposeful -Discontinue Dela Cruz catheter -Antibiotics de-escalated per ID to Ceftriaxone based on HILARIO/sensitivities -Start therapies for angioedema -CT head was essentially normal -Neurology consult pending, EEG pending -Intermittent diuresis while monitoring renal function,hemodynamics and electrolyte profile- had hypokalemia when she was admitted -CIWA protocol, in view of agitation. -Continue with MVS, Lung protective strategies, monitor airway pressures -VAP bundle addressed -Continue aspiration precautions, HOB>40 -Continue daily assessment for readiness for SBT -Continue Intermittent sedation until patient's neurologic state can be better evaluated -Continue Stress ulcer prophylaxis -Continue enteric nutritional support. Monitor glycemic control, with target blood glucose 140-180 mg/dL while critically ill. -Avoid hypoglycemia - Continue daily SAT assessment as tolerated - Continue to wean supplemental oxygen for target O2 sat's > 90% -ABG and CXR in am -Continue to trend leukocytosis and lactic acidosis -Continue to treat for hepatic encephalopathy- especially with elevated ammonia levels- lactulose -Continue thiamine, multivitamin and electrolyte replacement -Continue to avoid nephrotoxins, adjust all medications fro GFR and CrCL - Continue bronchodilators with pulmonary hygiene - Continue to avoid benzodiazepines , as much as possible, to reduce the possibility of delirium - Continue prn analgesia per CPOT score - Continue to maintain of sleep-wake cycle, avoid delirium - PT/OT/ROM exercises- awaiting PT/OT evaluation - Continue mobility protocol and skin assessment per protocol for pressure ulcer prevention - Continue to monitor for clinical seizures -Continue Nicotine withdrawal precautions, alcohol withdrawal precautions - continue other care per attending / other consultants CONDITION: CRITICAL PROGNOSIS: GUARDED CODE STATUS: FULL CODE The high probability of a clinically significant, sudden or life-threatening deterioration of the [respiratory, cardiovascular,GI/hepatology] system(s) required my full and direct attention, intervention and personal management. The aggregate critical care time was [31] minutes without overlap. Time includes spent on; [x] Data Review and interpretation [x] Patient assessment and monitoring of vital signs [x] Documentation [x] Medication orders and management Subjective Date of service: 03/08/20 Interval history: Follow up for: OSH cardiopulmonary arrest; acute hypoxic respiratory failure: acute metabolic -toxic encephalopathy; sepsis; alcohol-tobacco use disorder; ischemic heaptitis Seen and examined. Vitals, labs, medications, chart and imaging reviewed. Discussed with RT and RN. Vitals, labs, medications, chart and imaging reviewed. high grade fevers reported with agitation- non-purposeful movements. Tolerating tube feedings Remains orally intubated on MVS, critically ill in the ICU. She was placed on SBT- she became tacypnic Current ABG 7.42/51/83/32. Objective Vital Signs - 12hr 11/25/19 11/25/19 11/25/19 03:30 04:00 04:11 Temperature 100.6 F H Pulse Rate 107 H 104 H 100 H Respiratory 19 20 Rate Blood Pressure 164/83 121/75 O2 Sat by Pulse 88 98 Oximetry 11/25/19 11/25/19 11/25/19 04:30 04:34 05:00 Temperature Pulse Rate 101 H 99 H 99 H Respiratory 19 20 Rate Blood Pressure 124/73 132/75 124/73 O2 Sat by Pulse 96 97 98 Oximetry 11/25/19 11/25/19 11/25/19 05:30 06:00 06:30 Temperature Pulse Rate 100 H 99 H 94 H Respiratory 20 20 20 Rate Blood Pressure 132/75 138/74 130/67 O2 Sat by Pulse 96 95 97 Oximetry 11/25/19 11/25/19 11/25/19 07:00 07:24 07:30 Temperature Pulse Rate 93 H 91 H 91 H Respiratory 20 20 Rate Blood Pressure 129/74 125/73 125/73 O2 Sat by Pulse 98 98 Oximetry 11/25/19 11/25/19 11/25/19 07:34 08:00 08:30 Temperature 98.5 F Pulse Rate 96 H 101 H 107 H Respiratory 21 25 H Rate Blood Pressure 125/73 137/77 150/82 O2 Sat by Pulse 95 94 94 Oximetry 11/25/19 11/25/19 11/25/19 09:00 09:30 10:00 Temperature Pulse Rate 102 H 93 H 92 H Respiratory 21 20 20 Rate Blood Pressure 146/74 155/77 138/70 O2 Sat by Pulse 96 96 96 Oximetry 11/25/19 11/25/19 11/25/19 10:30 11:00 11:30 Temperature Pulse Rate 91 H 85 108 H Respiratory 20 19 21 Rate Blood Pressure 130/75 126/79 142/119 O2 Sat by Pulse 98 99 95 Oximetry 11/25/19 11/25/19 11/25/19 11:54 12:00 12:30 Temperature 98.5 F Pulse Rate 98 H 107 H 92 H Respiratory 20 20 Rate Blood Pressure 157/92 157/92 124/72 O2 Sat by Pulse 98 97 98 Oximetry 11/25/19 13:00 Temperature Pulse Rate 88 Respiratory 21 Rate Blood Pressure 157/92 O2 Sat by Pulse 99 Oximetry Constitutional: no acute distress, other (orally intuabted ETT at 22 cm at the lip to mVS, no dys-synchrony) Eyes: non-icteric ENT: other (large tongue with lip swelling- angioedema) Neck: supple, no lymphadenopathy, no JVD Effort: mildly labored Ascultation: Bilateral: diminished breath sounds, rhonchi Cardiovascular: regular rate and rhythm (tachycardia), other (S1,S2) Gastrointestinal: normoactive bowel sounds, soft, non-tender, other (distended, non tender) Integumentary: normal Extremities: no cyanosis, no edema, pulses normal, no ischemia or petechiae Neurologic: unable to assess, other (very restless and agitated) Psychiatric: other (Psychiatric: Unable to assess) CBC and BMP: 11/27/19 04:20 11/27/19 04:28 ABG, PT/INR, D-dimer: ABG ABG pH 7.422 pH Units (7.350-7.450) 11/25/19 04:34 ABG pCO2 50.8 mm Hg 11/25/19 04:34 ABG pO2 82.7 mm Hg (80.0-90.0) 11/25/19 04:34 ABG O2 Saturation 96.9 % (95.0-99.0) 11/25/19 04:34 PT/INR, D-dimer PT 17.0 Sec. (12.2-14.9) H 11/23/19 03:47 INR 1.36 (0.87-1.13) H 11/23/19 03:47 Abnormal lab findings: Abnormal Labs 11/22/19 11/22/19 11/22/19 23:17 23:18 23:27 WBC 21.2 H RBC 3.59 L Hgb 9.8 L Hct MCH 27 L RDW 18.6 H Plt Count 454 H Lymph % (Auto) [place] % (Auto) [place] # Seg Neutrophils % Seg Neuts % (Manual) 86.0 H Lymphocytes % (Manual) 9.0 L Seg Neutrophils # Seg Neutrophils # Man 18.2 H Lymphocytes # (Manual) Monocytes # (Manual) 1.1 H PT INR APTT ABG pH ABG pO2 ABG HCO3 ABG O2 Saturation ABG Base Excess ABG Hemoglobin Oxyhemoglobin Sodium Potassium Chloride Carbon Dioxide Creatinine Glucose POC Glucose 53 L Lactic Acid Calcium Phosphorus Magnesium Total Bilirubin AST ALT Alkaline Phosphatase Ammonia Total Creatine Kinase CK-MB (CK-2) CK-MB (CK-2) Rel Index Total Protein Albumin Urine WBC (Auto) 40.0 H Salicylates Acetaminophen Plasma/Serum Alcohol 11/22/19 11/22/19 11/22/19 23:27 23:27 23:27 WBC RBC Hgb Hct MCH RDW Plt Count Lymph % (Auto) [place] % (Auto) [place] # Seg Neutrophils % Seg Neuts % (Manual) Lymphocytes % (Manual) Seg Neutrophils # Seg Neutrophils # Man Lymphocytes # (Manual) Monocytes # (Manual) PT INR APTT ABG pH ABG pO2 ABG HCO3 ABG O2 Saturation ABG Base Excess ABG Hemoglobin Oxyhemoglobin Sodium Potassium 2.4 L* Chloride 85.1 L Carbon Dioxide 19 L Creatinine 0.5 L Glucose 261 H POC Glucose Lactic Acid Calcium Phosphorus Magnesium Total Bilirubin AST 609 H ALT 152 H Alkaline Phosphatase 160 H Ammonia 117.0 H Total Creatine Kinase 139 H CK-MB (CK-2) 8.3 H CK-MB (CK-2) Rel Index 5.9 H Total Protein Albumin 3.6 L Urine WBC (Auto) Salicylates < 0.3 L Acetaminophen Plasma/Serum Alcohol 11/22/19 11/22/19 11/23/19 23:27 23:27 01:10 WBC RBC Hgb Hct MCH RDW Plt Count Lymph % (Auto) [place] % (Auto) [place] # Seg Neutrophils % Seg Neuts % (Manual) Lymphocytes % (Manual) Seg Neutrophils # Seg Neutrophils # Man Lymphocytes # (Manual) Monocytes # (Manual) PT INR APTT ABG pH 7.273 L ABG pO2 209.7 H ABG HCO3 ABG O2 Saturation 99.2 H ABG Base Excess -3.9 L ABG Hemoglobin 10.6 L Oxyhemoglobin 93.9 L Sodium Potassium Chloride Carbon Dioxide Creatinine Glucose POC Glucose Lactic Acid Calcium Phosphorus Magnesium Total Bilirubin AST ALT Alkaline Phosphatase Ammonia Total Creatine Kinase CK-MB (CK-2) CK-MB (CK-2) Rel Index Total Protein Albumin Urine WBC (Auto) Salicylates Acetaminophen < 5.0 L Plasma/Serum Alcohol 0.08 H 11/23/19 11/23/19 11/23/19 01:19 01:19 03:47 WBC RBC Hgb Hct MCH RDW Plt Count Lymph % (Auto) [place] % (Auto) [place] # Seg Neutrophils % Seg Neuts % (Manual) Lymphocytes % (Manual) Seg Neutrophils # Seg Neutrophils # Man Lymphocytes # (Manual) Monocytes # (Manual) PT 16.3 H INR 1.29 H APTT ABG pH ABG pO2 ABG HCO3 ABG O2 Saturation ABG Base Excess ABG Hemoglobin Oxyhemoglobin Sodium Potassium Chloride Carbon Dioxide Creatinine Glucose POC Glucose Lactic Acid 2.10 H* 5.00 H* Calcium Phosphorus Magnesium Total Bilirubin AST ALT Alkaline Phosphatase Ammonia Total Creatine Kinase CK-MB (CK-2) CK-MB (CK-2) Rel Index Total Protein Albumin Urine WBC (Auto) Salicylates Acetaminophen Plasma/Serum Alcohol 11/23/19 11/23/19 11/23/19 03:47 03:47 04:53 WBC RBC Hgb 9.4 L Hct MCH RDW Plt Count Lymph % (Auto) [place] % (Auto) [place] # Seg Neutrophils % Seg Neuts % (Manual) Lymphocytes % (Manual) Seg Neutrophils # Seg Neutrophils # Man Lymphocytes # (Manual) Monocytes # (Manual) PT 17.0 H INR 1.36 H APTT 128.2 H* ABG pH ABG pO2 ABG HCO3 ABG O2 Saturation ABG Base Excess ABG Hemoglobin Oxyhemoglobin Sodium Potassium Chloride Carbon Dioxide 18 L Creatinine 0.5 L Glucose 105 H POC Glucose Lactic Acid Calcium 8.3 L Phosphorus 2.40 L Magnesium Total Bilirubin 1.30 H AST 761 H ALT 158 H Alkaline Phosphatase 143 H Ammonia Total Creatine Kinase CK-MB (CK-2) CK-MB (CK-2) Rel Index Total Protein Albumin 2.8 L Urine WBC (Auto) Salicylates Acetaminophen Plasma/Serum Alcohol 11/23/19 11/23/19 11/23/19 05:12 06:32 06:32 WBC 16.8 H RBC 3.31 L Hgb 8.9 L Hct 28.7 L MCH 27 L RDW 18.6 H Plt Count Lymph % (Auto) [place] % (Auto) [place] # Seg Neutrophils % Seg Neuts % (Manual) 94.0 H Lymphocytes % (Manual) 1.0 L Seg Neutrophils # Seg Neutrophils # Man 15.8 H Lymphocytes # (Manual) 0.2 L Monocytes # (Manual) PT INR APTT ABG pH ABG pO2 ABG HCO3 ABG O2 Saturation ABG Base Excess -3.2 L ABG Hemoglobin 9.0 L Oxyhemoglobin 93.6 L Sodium Potassium Chloride Carbon Dioxide Creatinine Glucose POC Glucose Lactic Acid 3.30 H* Calcium Phosphorus Magnesium Total Bilirubin AST ALT Alkaline Phosphatase Ammonia Total Creatine Kinase CK-MB (CK-2) CK-MB (CK-2) Rel Index Total Protein Albumin Urine WBC (Auto) Salicylates Acetaminophen Plasma/Serum Alcohol 11/24/19 11/24/19 11/24/19 04:35 04:35 05:22 WBC RBC Hgb Hct MCH RDW Plt Count Lymph % (Auto) [place] % (Auto) [place] # Seg Neutrophils % Seg Neuts % (Manual) Lymphocytes % (Manual) Seg Neutrophils # Seg Neutrophils # Man Lymphocytes # (Manual) Monocytes # (Manual) PT INR APTT ABG pH 7.475 H ABG pO2 ABG HCO3 29.4 H ABG O2 Saturation ABG Base Excess 5.4 H ABG Hemoglobin 9.0 L Oxyhemoglobin Sodium Potassium Chloride Carbon Dioxide Creatinine Glucose POC Glucose Lactic Acid Calcium Phosphorus Magnesium 1.40 L Total Bilirubin AST ALT Alkaline Phosphatase Ammonia 98.0 H Total Creatine Kinase CK-MB (CK-2) CK-MB (CK-2) Rel Index Total Protein Albumin Urine WBC (Auto) Salicylates Acetaminophen Plasma/Serum Alcohol 11/25/19 11/25/19 11/25/19 04:34 05:05 05:05 WBC 17.3 H RBC 2.88 L Hgb 7.8 L Hct 24.6 L MCH 27 L RDW 18.5 H Plt Count Lymph % (Auto) 7.7 L [place] % (Auto) 9.7 H [place] # 1.7 H Seg Neutrophils % 82.2 H Seg Neuts % (Manual) Lymphocytes % (Manual) Seg Neutrophils # 14.2 H Seg Neutrophils # Man Lymphocytes # (Manual) Monocytes # (Manual) PT INR APTT ABG pH ABG pO2 ABG HCO3 32.3 H ABG O2 Saturation ABG Base Excess 6.9 H ABG Hemoglobin 10.6 L Oxyhemoglobin 94.3 L Sodium 152 H D Potassium 2.3 L* D Chloride 107.8 H Carbon Dioxide 31 H D Creatinine 0.6 L Glucose 148 H POC Glucose Lactic Acid Calcium Phosphorus Magnesium Total Bilirubin AST 105 H ALT 71 H Alkaline Phosphatase 155 H Ammonia Total Creatine Kinase CK-MB (CK-2) CK-MB (CK-2) Rel Index Total Protein 5.2 L D Albumin 2.9 L Urine WBC (Auto) Salicylates Acetaminophen Plasma/Serum Alcohol Chest x-ray: image reviewed Additional Studies: Cultures: 11/22/2019 urine culture: In process 11/22/2019 tracheal aspirate culture: H. influenzae 11/23/2019 blood culture: No growth in 48 hours Allied health notes reviewed: RT
[2019-11-25] MEDS ORDERED: methylPREDNISolone Sod Suc 60 MG in SODIUM CHLORIDE 0.9% 100 ML IV SCH (16:00)
[2019-11-25] MEDS: methylPREDNISolone Sod Succinate 125 MG/2 ML INJ IV SCH (16:56)
[2019-11-25] MEDS: diphenhydrAMINE 50 MG/ML VIAL IV SCH ×2 (16:57→21:13)
[2019-11-25] MEDS: cefTRIAXone/NS 2 GM/100 ML 2 GM/100 ML BAG IV SCH (16:58)
[2019-11-25 23:44] LABS: BUN/Creatinine Ratio 20; Blood Urea Nitrogen 12 mg/dL (7-17); Calcium 8.8 mg/dL (8.4-10.2); Hemolysis Index 8
[2019-11-26] MEDS: LACTULOSE 20 GM/30 ML ORAL LIQD PO SCH ×4 (00:46→17:31)
[2019-11-26] MEDS: POTASSIUM CHLORIDE 10 MEQ 10 MEQ/100 ML BAG IV SCH ×4 (00:48→04:33)
[2019-11-26] MEDS: methylPREDNISolone Sod Succinate 125 MG/2 ML INJ IV SCH ×3 (01:56→16:21)
[2019-11-26 03:55] LABS: ABG Base Excess 9.4 mmol/L (-2.0-3.0); ABG HCO3 34.2 mmol/L (20.0-26.0); ABG Methemoglobin 0.4 % (0.0-1.5); ABG Oxygen Saturation 97.1 % (95.0-99.0); ABG PCO2 49.3 mm Hg; ABG PH 7.459 pH Units (7.350-7.450); ABG PO2 84.7 mm Hg (80.0-90.0)
[2019-11-26] MEDS: diphenhydrAMINE 50 MG/ML VIAL IV SCH ×4 (05:10→21:06)
[2019-11-26] MEDS: fentaNYL DRIP Premix 2,000 MCG/100 ML BAG IV SCH ×2 (05:15→11:10)
--- NOTE | 2019-11-26 05:59 | XRay Report ---
CHEST 1 VIEW INDICATION / CLINICAL INFORMATION: follow up respiratory failure. COMPARISON: 11/25/2019 FINDINGS: SUPPORT DEVICES: Stable, satisfactory device positioning. HEART / MEDIASTINUM: No significant abnormality. LUNGS / PLEURA: No significant pulmonary or pleural abnormality. No pneumothorax. ADDITIONAL FINDINGS: No significant additional findings. IMPRESSION: 1. No acute findings. No interval change. Signer Name: Mitra Odell MD Signed: 11/26/2019 5:55 AM Workstation Name: [id number]
[2019-11-26 08:42] LABS: Hematocrit 25.9 % (30.3-42.9); Mean Corpuscular HGB Conc 31 % (30-34); Mean Corpuscular Volume 86 fl (79-97); Platelet Count 298 K/mm3 (140-440); Red Cell Distribution Width 18.5 % (13.2-15.2)
[2019-11-26] MEDS: HEPARIN 5,000 UNIT/1 ML VIAL SUB-Q SCH ×2 (09:04→21:06)
[2019-11-26] MEDS: PANTOPRAZOLE 40 MG INJ IV SCH (09:04)
[2019-11-26 09:09] LABS: Alanine Aminotransferase 52 units/L (7-56); Albumin 2.9 g/dL (3.9-5); BUN/Creatinine Ratio 30; Blood Urea Nitrogen 15 mg/dL (7-17); Calcium 9.3 mg/dL (8.4-10.2); Hemolysis Index 8
[2019-11-26] MEDS ORDERED: fentaNYL 100 MCG/2 ML INJ IV PRN (10:13)
[2019-11-26 10:34] LABS: Basophils % (Manual) 0 % (0.0-1.8); Eosinophils % (Manual) 0 % (0.0-4.3); Total Cells Counted 100
[2019-11-26 10:35] LABS: Platelet Estimate Consistent w Auto
--- NOTE | 2019-11-26 10:44 | Progress Note ---
Assessment and Plan Cultures: 11/22/2019 urine culture:no significant growth 11/22/2019 tracheal aspirate culture: H. influenzae 11/23/2019 blood culture: No growth in 48 hours A/P: 54-year-old female with hypertension, depression, tobacco use, alcohol abuse was brought into the emergency room on 11/22/2019 after she went into respiratory arrest at home requiring CPR by EMS: #Sepsis: Source could be UTI versus pneumonitis versus SBP. UA showed pyuria. #Pneumonitis, acute respiratory failure: Possibly aspiration. No dense pneumonia seen. On mechanical ventilation. #Elevated LFTs, alcohol abuse, status post arrest requiring CPR: Trend LFTs. Also recommend abdominal ultrasound. #Acute encephalopathy: Likely multifactorial from alcohol abuse, status post arrest, hypernatremia Recs: fever improving. Continue IV ceftriaxone 2 g daily (will cover H.influenzae, UTI and for ?SBP) Follow-up cultures Follow up abdominal ultrasound ordered to evaluate for ascites and hepatobiliary system Isaías Aaron MD, FACP [facility] ([facility] C: [phone] O: [phone] F: [phone] Subjective Date of service: 11/26/19 Interval history: Fever improving. Remains intubated on the vent. Eyes open but not tracking or following commands. Objective - Exam Narrative Exam: Physical Exam: Constitutional: eyes open, intubated Head, Ears, Nose: Normocephalic, atraumatic. External ears, nose normal Eyes: Conjunctivae/corneas clear. No icterus. No ptosis. Neck: intubated Oral: intubated Cardiovascular: S1, S2 normal Respiratory: Good air entry, clear to auscultation bilaterally GI: Distended, bowel sounds present. Rectal tube present with liquid stool Musculoskeletal: No pedal edema, no cyanosis. Skin: No rash or abscess Hem/Lymphatic: No palpable cervical or supraclavicular nodes. No lymphangitis Psych: no agitation. Neurological: eyes open, not following commands, intubated, on vent - Constitutional Vitals: Vital Signs Temp Pulse Resp BP Pulse Ox 98.8 F 85 20 153/102 97 11/26/19 08:00 11/26/19 08:50 11/26/19 06:00 11/26/19 08:50 11/26/19 08:50 Temperature -Last 24 Hours Temperature 98.8 F Temperature 99.7 F Temperature 99.5 F Temperature 98.9 F Temperature 98.0 F Temperature 98.5 F - Labs CBC & Chem 7: 11/26/19 08:24 11/26/19 08:24 Labs: Abnormal lab results 11/25/19 11/26/19 11/26/19 Range/Units 22:46 03:31 08:24 WBC 12.0 H (4.5-11.0) K/mm3 RBC 3.00 L (3.65-5.03) M/mm3 Hgb 8.0 L (10.1-14.3) gm/dl Hct 25.9 L (30.3-42.9) % MCH 27 L (28-32) pg RDW 18.5 H (13.2-15.2) % Seg Neuts % (Manual) 89.0 H (40.0-70.0) % Lymphocytes % (Manual) 4.0 L (13.4-35.0) % Seg Neutrophils # Man 10.7 H (1.8-7.7) K/mm3 Lymphocytes # (Manual) 0.5 L (1.2-5.4) K/mm3 ABG pH 7.459 H (7.350-7.450) pH Units ABG HCO3 34.2 H (20.0-26.0) mmol/L ABG Base Excess 9.4 H (-2.0-3.0) mmol/L ABG Hemoglobin 7.6 L (12.0-16.0) gm/dl Oxyhemoglobin 94.8 L (95.0-99.0) % Sodium 147 H (137-145) mmol/L Potassium 2.8 L* D (3.6-5.0) mmol/L Carbon Dioxide 33 H (22-30) mmol/L Creatinine 0.6 L (0.7-1.2) mg/dL Glucose 177 H (65-100) mg/dL AST (5-40) units/L Alkaline Phosphatase (35-129) units/L Albumin (3.9-5) g/dL 11/26/19 Range/Units 08:24 WBC (4.5-11.0) K/mm3 RBC (3.65-5.03) M/mm3 Hgb (10.1-14.3) gm/dl Hct (30.3-42.9) % MCH (28-32) pg RDW (13.2-15.2) % Seg Neuts % (Manual) (40.0-70.0) % Lymphocytes % (Manual) (13.4-35.0) % Seg Neutrophils # Man (1.8-7.7) K/mm3 Lymphocytes # (Manual) (1.2-5.4) K/mm3 ABG pH (7.350-7.450) pH Units ABG HCO3 (20.0-26.0) mmol/L ABG Base Excess (-2.0-3.0) mmol/L ABG Hemoglobin (12.0-16.0) gm/dl Oxyhemoglobin (95.0-99.0) % Sodium 146 H (137-145) mmol/L Potassium 3.4 L D (3.6-5.0) mmol/L Carbon Dioxide (22-30) mmol/L Creatinine 0.5 L (0.7-1.2) mg/dL Glucose 165 H (65-100) mg/dL AST 57 H (5-40) units/L Alkaline Phosphatase 166 H (35-129) units/L Albumin 2.9 L (3.9-5) g/dL - Imaging and cardiology Chest x-ray: report reviewed, image reviewed (no interval change. ET tube +)
[2019-11-26] MEDS ORDERED: POTASSIUM CHLORIDE 20 MEQ PACKET FEEDTUBE ONE (11:00)
[2019-11-26] MEDS ORDERED: FUROSEMIDE 40 MG/4 ML INJ IV ONE (11:00)
--- NOTE | 2019-11-26 11:14 | Progress Note ---
Assessment and Plan Acute cardiopulmonary arrest with ROSC Acute hypoxemic respiratory failure on MVS Acute metabolic-toxic encephalopathy Metabolic acidosis/alcoholic acidosis/Lactic acidosis Ischemic hepatitis Leucocytosis with lactic acidosis Tobacco use disorder ALcohol use Disorder Hypokalemia High grade fevers -Aggressively replace potassium -Antibiotics de-escalated per ID to Ceftriaxone based on HLIARIO/sensitivities -Start therapies for angioedema- benadryl, H2 blockers, steroids -Neurology consult pending, EEG pending- Neurologist will evalaute her today -Intermittent diuresis while monitoring renal function,hemodynamics and electrolyte profile -Continue CIWA protocol, in view of agitation. -Continue with MVS, Lung protective strategies, monitor airway pressures -VAP bundle addressed -Continue aspiration precautions, HOB>40 -Continue daily assessment for readiness for SBT -Continue Intermittent sedation until patient's neurologic state can be better evaluated -Continue Stress ulcer prophylaxis -Continue enteric nutritional support. Monitor glycemic control, with target blood glucose 140-180 mg/dL while critically ill. -Avoid hypoglycemia - Continue daily SAT assessment as tolerated - Continue to wean supplemental oxygen for target O2 sat's > 90% -ABG and CXR in am -Continue to trend leukocytosis and lactic acidosis -Continue to treat for hepatic encephalopathy- especially with elevated ammonia levels- lactulose -Continue thiamine, multivitamin and electrolyte replacement -Continue to avoid nephrotoxins, adjust all medications fro GFR and CrCL - Continue bronchodilators with pulmonary hygiene - Continue to avoid benzodiazepines , as much as possible, to reduce the possibility of delirium - Continue prn analgesia per CPOT score - Continue to maintain of sleep-wake cycle, avoid delirium - PT/OT/ROM exercises- awaiting PT/OT evaluation - Continue mobility protocol and skin assessment per protocol for pressure ulcer prevention - Continue to monitor for clinical seizures -Continue Nicotine withdrawal precautions, alcohol withdrawal precautions - continue other care per attending / other consultants CONDITION: CRITICAL PROGNOSIS: GUARDED CODE STATUS: FULL CODE The high probability of a clinically significant, sudden or life-threatening deterioration of the [respiratory, cardiovascular,GI/hepatology] system(s) required my full and direct attention, intervention and personal management. The aggregate critical care time was [31] minutes without overlap. Time includes s pent on; [x] Data Review and interpretation [x] Patient assessment and monitoring of vital signs [x] Documentation [x] Medication orders and management Subjective Date of service: 11/26/19 Interval history: Follow up for: OSH cardiopulmonary arrest; acute hypoxic respiratory failure: acute metabolic -toxic encephalopathy; sepsis; alcohol-tobacco use disorder; ischemic hepatitis Seen and examined. Vitals, labs, medications, chart and imaging reviewed. Discussed with RT and RN and ICU team in IDT rounds Vitals, labs, medications, chart and imaging reviewed. Tolerating tube feeding On going agitation, remains orally intubated on MVS Scheduled fro EEG and abdominal USS this morning Did not tolerate SBTs this morning- had desaturations and tachypnea VENT AC-VC 20/425/6/30% 7.45/49/84 Objective Vital Signs - 12hr 11/25/19 11/25/19 11/26/19 23:30 23:51 00:00 Temperature 99.5 F Pulse Rate 71 74 Respiratory 20 20 Rate Blood Pressure 133/83 128/83 O2 Sat by Pulse 100 100 Oximetry 11/26/19 11/26/19 11/26/19 00:30 01:00 01:30 Temperature Pulse Rate 69 79 125 H Respiratory 20 20 20 Rate Blood Pressure 135/80 142/86 153/104 O2 Sat by Pulse 100 94 Oximetry 11/26/19 11/26/19 11/26/19 02:00 02:30 03:00 Temperature Pulse Rate 95 H 96 H 78 Respiratory 20 20 20 Rate Blood Pressure 129/84 137/87 123/79 O2 Sat by Pulse 95 96 Oximetry 11/26/19 11/26/19 11/26/19 03:30 03:51 04:00 Temperature 99.7 F H Pulse Rate 85 108 H Respiratory 20 19 Rate Blood Pressure 130/82 152/93 O2 Sat by Pulse 99 97 Oximetry 11/26/19 11/26/19 11/26/19 04:30 05:00 05:10 Temperature Pulse Rate 90 101 H 85 Respiratory 20 20 Rate Blood Pressure 137/79 155/97 155/97 O2 Sat by Pulse 95 99 99 Oximetry 11/26/19 11/26/19 11/26/19 05:30 06:00 08:00 Temperature 98.8 F Pulse Rate 85 86 Respiratory 20 20 Rate Blood Pressure 135/84 125/74 O2 Sat by Pulse 98 98 Oximetry 11/26/19 08:50 Temperature Pulse Rate 85 Respiratory Rate Blood Pressure 153/102 O2 Sat by Pulse 97 Oximetry Constitutional: no acute distress, other (orally intuabted ETT at 22 cm at the lip to mVS, no dys-synchrony) Eyes: non-icteric ENT: oropharynx dry Neck: supple, no lymphadenopathy, no JVD Effort: mildly labored Ascultation: Bilateral: diminished breath sounds, rhonchi Cardiovascular: regular rate and rhythm (tachycardia), other (S1,S2) Gastrointestinal: normoactive bowel sounds, soft, non-tender, other (distended, non tender) Integumentary: normal Extremities: no cyanosis, no edema, pulses normal, no ischemia or petechiae Neurologic: unable to assess, other (awake but not tracking voice ) Psychiatric: other (Psychiatric: Unable to assess) CBC and BMP: 11/27/19 04:20 11/27/19 04:28 ABG, PT/INR, D-dimer: ABG ABG pH 7.459 pH Units (7.350-7.450) H 11/26/19 03:31 ABG pCO2 49.3 mm Hg 11/26/19 03:31 ABG pO2 84.7 mm Hg (80.0-90.0) 11/26/19 03:31 ABG O2 Saturation 97.1 % (95.0-99.0) 11/26/19 03:31 PT/INR, D-dimer PT 17.0 Sec. (12.2-14.9) H 11/23/19 03:47 INR 1.36 (0.87-1.13) H 11/23/19 03:47 Abnormal lab findings: Abnormal Labs 11/22/19 11/22/19 11/22/19 23:17 23:18 23:27 WBC 21.2 H RBC 3.59 L Hgb 9.8 L Hct MCH 27 L RDW 18.6 H Plt Count 454 H Lymph % (Auto) [place] % (Auto) [place] # Seg Neutrophils % Seg Neuts % (Manual) 86.0 H Lymphocytes % (Manual) 9.0 L Seg Neutrophils # Seg Neutrophils # Man 18.2 H Lymphocytes # (Manual) Monocytes # (Manual) 1.1 H PT INR APTT ABG pH ABG pO2 ABG HCO3 ABG O2 Saturation ABG Base Excess ABG Hemoglobin Oxyhemoglobin Sodium Potassium Chloride Carbon Dioxide Creatinine Glucose POC Glucose 53 L Lactic Acid Calcium Phosphorus Magnesium Total Bilirubin AST ALT Alkaline Phosphatase Ammonia Total Creatine Kinase CK-MB (CK-2) CK-MB (CK-2) Rel Index Total Protein Albumin Urine WBC (Auto) 40.0 H Salicylates Acetaminophen Plasma/Serum Alcohol 11/22/19 11/22/19 11/22/19 23:27 23:27 23:27 WBC RBC Hgb Hct MCH RDW Plt Count Lymph % (Auto) [place] % (Auto) [place] # Seg Neutrophils % Seg Neuts % (Manual) Lymphocytes % (Manual) Seg Neutrophils # Seg Neutrophils # Man Lymphocytes # (Manual) Monocytes # (Manual) PT INR APTT ABG pH ABG pO2 ABG HCO3 ABG O2 Saturation ABG Base Excess ABG Hemoglobin Oxyhemoglobin Sodium Potassium 2.4 L* Chloride 85.1 L Carbon Dioxide 19 L Creatinine 0.5 L Glucose 261 H POC Glucose Lactic Acid Calcium Phosphorus Magnesium Total Bilirubin AST 609 H ALT 152 H Alkaline Phosphatase 160 H Ammonia 117.0 H Total Creatine Kinase 139 H CK-MB (CK-2) 8.3 H CK-MB (CK-2) Rel Index 5.9 H Total Protein Albumin 3.6 L Urine WBC (Auto) Salicylates < 0.3 L Acetaminophen Plasma/Serum Alcohol 11/22/19 11/22/19 11/23/19 23:27 23:27 01:10 WBC RBC Hgb Hct MCH RDW Plt Count Lymph % (Auto) [place] % (Auto) [place] # Seg Neutrophils % Seg Neuts % (Manual) Lymphocytes % (Manual) Seg Neutrophils # Seg Neutrophils # Man Lymphocytes # (Manual) Monocytes # (Manual) PT INR APTT ABG pH 7.273 L ABG pO2 209.7 H ABG HCO3 ABG O2 Saturation 99.2 H ABG Base Excess -3.9 L ABG Hemoglobin 10.6 L Oxyhemoglobin 93.9 L Sodium Potassium Chloride Carbon Dioxide Creatinine Glucose POC Glucose Lactic Acid Calcium Phosphorus Magnesium Total Bilirubin AST ALT Alkaline Phosphatase Ammonia Total Creatine Kinase CK-MB (CK-2) CK-MB (CK-2) Rel Index Total Protein Albumin Urine WBC (Auto) Salicylates Acetaminophen < 5.0 L Plasma/Serum Alcohol 0.08 H 11/23/19 11/23/19 11/23/19 01:19 01:19 03:47 WBC RBC Hgb Hct MCH RDW Plt Count Lymph % (Auto) [place] % (Auto) [place] # Seg Neutrophils % Seg Neuts % (Manual) Lymphocytes % (Manual) Seg Neutrophils # Seg Neutrophils # Man Lymphocytes # (Manual) Monocytes # (Manual) PT 16.3 H INR 1.29 H APTT ABG pH ABG pO2 ABG HCO3 ABG O2 Saturation ABG Base Excess ABG Hemoglobin Oxyhemoglobin Sodium Potassium Chloride Carbon Dioxide Creatinine Glucose POC Glucose Lactic Acid 2.10 H* 5.00 H* Calcium Phosphorus Magnesium Total Bilirubin AST ALT Alkaline Phosphatase Ammonia Total Creatine Kinase CK-MB (CK-2) CK-MB (CK-2) Rel Index Total Protein Albumin Urine WBC (Auto) Salicylates Acetaminophen Plasma/Serum Alcohol 11/23/19 11/23/19 11/23/19 03:47 03:47 04:53 WBC RBC Hgb 9.4 L Hct MCH RDW Plt Count Lymph % (Auto) [place] % (Auto) [place] # Seg Neutrophils % Seg Neuts % (Manual) Lymphocytes % (Manual) Seg Neutrophils # Seg Neutrophils # Man Lymphocytes # (Manual) Monocytes # (Manual) PT 17.0 H INR 1.36 H APTT 128.2 H* ABG pH ABG pO2 ABG HCO3 ABG O2 Saturation ABG Base Excess ABG Hemoglobin Oxyhemoglobin Sodium Potassium Chloride Carbon Dioxide 18 L Creatinine 0.5 L Glucose 105 H POC Glucose Lactic Acid Calcium 8.3 L Phosphorus 2.40 L Magnesium Total Bilirubin 1.30 H AST 761 H ALT 158 H Alkaline Phosphatase 143 H Ammonia Total Creatine Kinase CK-MB (CK-2) CK-MB (CK-2) Rel Index Total Protein Albumin 2.8 L Urine WBC (Auto) Salicylates Acetaminophen Plasma/Serum Alcohol 11/23/19 11/23/19 11/23/19 05:12 06:32 06:32 WBC 16.8 H RBC 3.31 L Hgb 8.9 L Hct 28.7 L MCH 27 L RDW 18.6 H Plt Count Lymph % (Auto) [place] % (Auto) [place] # Seg Neutrophils % Seg Neuts % (Manual) 94.0 H Lymphocytes % (Manual) 1.0 L Seg Neutrophils # Seg Neutrophils # Man 15.8 H Lymphocytes # (Manual) 0.2 L Monocytes # (Manual) PT INR APTT ABG pH ABG pO2 ABG HCO3 ABG O2 Saturation ABG Base Excess -3.2 L ABG Hemoglobin 9.0 L Oxyhemoglobin 93.6 L Sodium Potassium Chloride Carbon Dioxide Creatinine Glucose POC Glucose Lactic Acid 3.30 H* Calcium Phosphorus Magnesium Total Bilirubin AST ALT Alkaline Phosphatase Ammonia Total Creatine Kinase CK-MB (CK-2) CK-MB (CK-2) Rel Index Total Protein Albumin Urine WBC (Auto) Salicylates Acetaminophen Plasma/Serum Alcohol 11/24/19 11/24/19 11/24/19 04:35 04:35 05:22 WBC RBC Hgb Hct MCH RDW Plt Count Lymph % (Auto) [place] % (Auto) [place] # Seg Neutrophils % Seg Neuts % (Manual) Lymphocytes % (Manual) Seg Neutrophils # Seg Neutrophils # Man Lymphocytes # (Manual) Monocytes # (Manual) PT INR APTT ABG pH 7.475 H ABG pO2 ABG HCO3 29.4 H ABG O2 Saturation ABG Base Excess 5.4 H ABG Hemoglobin 9.0 L Oxyhemoglobin Sodium Potassium Chloride Carbon Dioxide Creatinine Glucose POC Glucose Lactic Acid Calcium Phosphorus Magnesium 1.40 L Total Bilirubin AST ALT Alkaline Phosphatase Ammonia 98.0 H Total Creatine Kinase CK-MB (CK-2) CK-MB (CK-2) Rel Index Total Protein Albumin Urine WBC (Auto) Salicylates Acetaminophen Plasma/Serum Alcohol 11/25/19 11/25/19 11/25/19 04:34 05:05 05:05 WBC 17.3 H RBC 2.88 L Hgb 7.8 L Hct 24.6 L MCH 27 L RDW 18.5 H Plt Count Lymph % (Auto) 7.7 L [place] % (Auto) 9.7 H [place] # 1.7 H Seg Neutrophils % 82.2 H Seg Neuts % (Manual) Lymphocytes % (Manual) Seg Neutrophils # 14.2 H Seg Neutrophils # Man Lymphocytes # (Manual) Monocytes # (Manual) PT INR APTT ABG pH ABG pO2 ABG HCO3 32.3 H ABG O2 Saturation ABG Base Excess 6.9 H ABG Hemoglobin 10.6 L Oxyhemoglobin 94.3 L Sodium 152 H D Potassium 2.3 L* D Chloride 107.8 H Carbon Dioxide 31 H D Creatinine 0.6 L Glucose 148 H POC Glucose Lactic Acid Calcium Phosphorus Magnesium Total Bilirubin AST 105 H ALT 71 H Alkaline Phosphatase 155 H Ammonia Total Creatine Kinase CK-MB (CK-2) CK-MB (CK-2) Rel Index Total Protein 5.2 L D Albumin 2.9 L Urine WBC (Auto) Salicylates Acetaminophen Plasma/Serum Alcohol 11/25/19 11/26/19 11/26/19 22:46 03:31 08:24 WBC 12.0 H RBC 3.00 L Hgb 8.0 L Hct 25.9 L MCH 27 L RDW 18.5 H Plt Count Lymph % (Auto) [place] % (Auto) [place] # Seg Neutrophils % Seg Neuts % (Manual) 89.0 H Lymphocytes % (Manual) 4.0 L Seg Neutrophils # Seg Neutrophils # Man 10.7 H Lymphocytes # (Manual) 0.5 L Monocytes # (Manual) PT INR APTT ABG pH 7.459 H ABG pO2 ABG HCO3 34.2 H ABG O2 Saturation ABG Base Excess 9.4 H ABG Hemoglobin 7.6 L Oxyhemoglobin 94.8 L Sodium 147 H Potassium 2.8 L* D Chloride Carbon Dioxide 33 H Creatinine 0.6 L Glucose 177 H POC Glucose Lactic Acid Calcium Phosphorus Magnesium Total Bilirubin AST ALT Alkaline Phosphatase Ammonia Total Creatine Kinase CK-MB (CK-2) CK-MB (CK-2) Rel Index Total Protein Albumin Urine WBC (Auto) Salicylates Acetaminophen Plasma/Serum Alcohol 11/26/19 08:24 WBC RBC Hgb Hct MCH RDW Plt Count Lymph % (Auto) [place] % (Auto) [place] # Seg Neutrophils % Seg Neuts % (Manual) Lymphocytes % (Manual) Seg Neutrophils # Seg Neutrophils # Man Lymphocytes # (Manual) Monocytes # (Manual) PT INR APTT ABG pH ABG pO2 ABG HCO3 ABG O2 Saturation ABG Base Excess ABG Hemoglobin Oxyhemoglobin Sodium 146 H Potassium 3.4 L D Chloride Carbon Dioxide Creatinine 0.5 L Glucose 165 H POC Glucose Lactic Acid Calcium Phosphorus Magnesium Total Bilirubin AST 57 H ALT Alkaline Phosphatase 166 H Ammonia Total Creatine Kinase CK-MB (CK-2) CK-MB (CK-2) Rel Index Total Protein Albumin 2.9 L Urine WBC (Auto) Salicylates Acetaminophen Plasma/Serum Alcohol Chest x-ray: image reviewed Allied health notes reviewed: RT
[2019-11-26] MEDS: LORazepam 2 MG/ML VIAL IV PRN (11:20)
[2019-11-26] MEDS: cefTRIAXone/NS 2 GM/100 ML 2 GM/100 ML BAG IV SCH (14:30)
--- NOTE | 2019-11-26 15:15 | Consultation ---
History of Present Illness Consult date: 11/26/19 Reason for Consult: Anoxic brain injury Chief complaint: Anoxic brain injury History of present illness: Patient is a 54-year-old woman with a history of hypertension, depression, alcohol abuse. She presented on November 22, 2019, and was found to have a cardiac arrest at home. When EMS arrived, the patient was found to be in cardiac arrest. Patient was brought by EMS to [facility] for further evaluation. Patient was intubated, and return to spontaneous circulation ultimately. She was found to have hypothermia, leukocytosis, UTI, and metabolic acidosis. Prior to going into cardiac arrest, the patient was reportedly sitting at home with family, and suddenly urinated on herself, after which she lost consciousness. Past History Past Medical History: hypertension, other (ALcohol use disorder, Tobacco use disorder) Social history: alcohol abuse, full code. denies: IV drug use Family history: hypertension Medications and Allergies Allergies Allergy/AdvReac Type Severity Reaction Status Date / Time No Known Allergies Allergy Verified 03/28/17 11:20 Home Medications Medication Instructions Recorded Confirmed Last Taken Type Folic Acid [Folvite] 1 mg PO QDAY #30 tablet 05/25/18 11/23/19 Unknown Rx Potassium Chloride [K-Dur] 40 meq PO TID PRN #180 tablet 05/25/18 11/23/19 Unknown Rx Mirtazapine [Remeron 30mg Rapdis] 30 mg PO DAILY 11/23/19 11/23/19 Unknown History Quetiapine Fumarate [Seroquel Xr] 200 mg PO HS 11/23/19 11/23/19 Unknown History Sertraline [Zoloft] 25 mg PO QDAY 11/23/19 11/23/19 Unknown History amLODIPine [Norvasc] 5 mg PO DAILY 11/23/19 11/23/19 Unknown History hydrOXYzine PAMOATE [Vistaril] 25 mg PO BID 11/23/19 11/23/19 Unknown History Active Meds: Active Medications Lipase/Protease/Amylase (Pancrestefani Dr 10,500 Unit) 1 each FEEDTUBE PRN PRN PRN Reason: For Clogged Feeding Tube Diphenhydramine HCl (Benadryl) 25 mg IV Q6H [facility] Stop: 12/03/19 15:59 Last Admin: 11/26/19 09:16 Dose: 25 mg Documented by: Fentanyl (Sublimaze) 50 mcg IV Q2H PRN PRN Reason: AGITATION Heparin Sodium (Porcine) (Heparin) 5,000 unit SUB-Q Q12HR [facility] Last Admin: 11/26/19 09:04 Dose: 5,000 unit Documented by: Hydralazine HCl (Apresoline) 10 mg IV Q6H PRN PRN Reason: SBP > 160 Last Admin: 11/24/19 09:33 Dose: 10 mg Documented by: Hydrophilic Ointment (Vaseline Lip Therapy) 1 applic TP Q2HR PRN PRN Reason: Dry Lips Ceftriaxone Sodium (Rocephin/Ns 2 Gm/100 Ml) 2 gm in 100 mls @ 200 mls/hr IV Q24H [facility]; Protocol Last Admin: 11/25/19 16:58 Dose: 200 mls/hr Documented by: Fentanyl Citrate (Fentanyl Drip Premix) 2,000 mcg in 100 mls @ 2.74 mls/hr IV TITR [facility]; Protocol Last Admin: 11/26/19 11:10 Dose: 1 mcg/kg/hr, 2.74 mls/hr Documented by: Lactulose (Cephulac) 20 gm PO Q6HR [facility] Last Admin: 11/26/19 11:05 Dose: 20 gm Documented by: Lorazepam (Ativan) 2 mg IV Q4H PRN PRN Reason: Agitation Last Admin: 11/26/19 11:20 Dose: 2 mg Documented by: Methylprednisolone Sodium Succinate (Solu-Medrol) 60 mg IV Q8H [facility] Stop: 11/28/19 00:01 Last Admin: 11/26/19 08:30 Dose: 60 mg Documented by: Multi-Ingred Cream/Lotion/Oil/Oint (Artificial Tears Ophth Oint) 1 applic OU Q4HR PRN PRN Reason: Dry Eye(s) Pantoprazole Sodium (Protonix) 40 mg IV QDAY [facility] Last Admin: 11/26/19 09:04 Dose: 40 mg Documented by: Simple Syrup (Simple Syrup) 15 ml FEEDTUBE PRN PRN PRN Reason: Hypoglycemia Simple Syrup (Simple Syrup) 30 ml FEEDTUBE PRN PRN PRN Reason: Hypoglycemia Sodium Bicarbonate (Sodium Bicarbonate) 325 mg FEEDTUBE PRN PRN PRN Reason: For Clogged Feeding Tube Review of Systems ROS unobtainable: due to endotracheal tube, due to mental status Physical Examination - Vital Signs Vital Signs: Vital Signs Pulse Resp 115 H 20 11/22/19 23:04 11/22/19 23:04 - Physical Exam Narrative exam: Patient is intubated, and comatose. Pupils bilaterally 3 mm and nonreactive to light. Intact corneal/VOR/cough reflexes. Withdraws bilaterally in lower extremities but not upper extremities. 2+ reflexes throughout. - Constitutional General appearance: acutely ill - EENT EENT: Present: ATNC, mucous membranes moist - Respiratory Respiratory: Present: decreased breath sounds - Cardiovascular Cardiovascular: Present: regular rate, normal S1, normal S2 Extremities: Present: no clubbing, cyanosis, no inflammation - Gastrointestinal Gastrointestinal: Present: normoactive bowel sounds, soft, non-tender - Integumentary Integumentary: Present: normal Results - Laboratory Findings CBC and BMP: 11/26/19 08:24 11/26/19 08:24 Abnormal Lab Findings: Abnormal Labs 11/22/19 11/22/19 11/22/19 23:17 23:18 23:27 WBC 21.2 H RBC 3.59 L Hgb 9.8 L Hct MCH 27 L RDW 18.6 H Plt Count 454 H Lymph % (Auto) [place] % (Auto) [place] # Seg Neutrophils % Seg Neuts % (Manual) 86.0 H Lymphocytes % (Manual) 9.0 L Seg Neutrophils # Seg Neutrophils # Man 18.2 H Lymphocytes # (Manual) Monocytes # (Manual) 1.1 H PT INR APTT ABG pH ABG pO2 ABG HCO3 ABG O2 Saturation ABG Base Excess ABG Hemoglobin Oxyhemoglobin Sodium Potassium Chloride Carbon Dioxide Creatinine Glucose POC Glucose 53 L Lactic Acid Calcium Phosphorus Magnesium Total Bilirubin AST ALT Alkaline Phosphatase Ammonia Total Creatine Kinase CK-MB (CK-2) CK-MB (CK-2) Rel Index Total Protein Albumin Urine WBC (Auto) 40.0 H Salicylates Acetaminophen Plasma/Serum Alcohol 11/22/19 11/22/19 11/22/19 23:27 23:27 23:27 WBC RBC Hgb Hct MCH RDW Plt Count Lymph % (Auto) [place] % (Auto) [place] # Seg Neutrophils % Seg Neuts % (Manual) Lymphocytes % (Manual) Seg Neutrophils # Seg Neutrophils # Man Lymphocytes # (Manual) Monocytes # (Manual) PT INR APTT ABG pH ABG pO2 ABG HCO3 ABG O2 Saturation ABG Base Excess ABG Hemoglobin Oxyhemoglobin Sodium Potassium 2.4 L* Chloride 85.1 L Carbon Dioxide 19 L Creatinine 0.5 L Glucose 261 H POC Glucose Lactic Acid Calcium Phosphorus Magnesium Total Bilirubin AST 609 H ALT 152 H Alkaline Phosphatase 160 H Ammonia 117.0 H Total Creatine Kinase 139 H CK-MB (CK-2) 8.3 H CK-MB (CK-2) Rel Index 5.9 H Total Protein Albumin 3.6 L Urine WBC (Auto) Salicylates < 0.3 L Acetaminophen Plasma/Serum Alcohol 11/22/19 11/22/19 11/23/19 23:27 23:27 01:10 WBC RBC Hgb Hct MCH RDW Plt Count Lymph % (Auto) [place] % (Auto) [place] # Seg Neutrophils % Seg Neuts % (Manual) Lymphocytes % (Manual) Seg Neutrophils # Seg Neutrophils # Man Lymphocytes # (Manual) Monocytes # (Manual) PT INR APTT ABG pH 7.273 L ABG pO2 209.7 H ABG HCO3 ABG O2 Saturation 99.2 H ABG Base Excess -3.9 L ABG Hemoglobin 10.6 L Oxyhemoglobin 93.9 L Sodium Potassium Chloride Carbon Dioxide Creatinine Glucose POC Glucose Lactic Acid Calcium Phosphorus Magnesium Total Bilirubin AST ALT Alkaline Phosphatase Ammonia Total Creatine Kinase CK-MB (CK-2) CK-MB (CK-2) Rel Index Total Protein Albumin Urine WBC (Auto) Salicylates Acetaminophen < 5.0 L Plasma/Serum Alcohol 0.08 H 11/23/19 11/23/19 11/23/19 01:19 01:19 03:47 WBC RBC Hgb Hct MCH RDW Plt Count Lymph % (Auto) [place] % (Auto) [place] # Seg Neutrophils % Seg Neuts % (Manual) Lymphocytes % (Manual) Seg Neutrophils # Seg Neutrophils # Man Lymphocytes # (Manual) Monocytes # (Manual) PT 16.3 H INR 1.29 H APTT ABG pH ABG pO2 ABG HCO3 ABG O2 Saturation ABG Base Excess ABG Hemoglobin Oxyhemoglobin Sodium Potassium Chloride Carbon Dioxide Creatinine Glucose POC Glucose Lactic Acid 2.10 H* 5.00 H* Calcium Phosphorus Magnesium Total Bilirubin AST ALT Alkaline Phosphatase Ammonia Total Creatine Kinase CK-MB (CK-2) CK-MB (CK-2) Rel Index Total Protein Albumin Urine WBC (Auto) Salicylates Acetaminophen Plasma/Serum Alcohol 11/23/19 11/23/19 11/23/19 03:47 03:47 04:53 WBC RBC Hgb 9.4 L Hct MCH RDW Plt Count Lymph % (Auto) [place] % (Auto) [place] # Seg Neutrophils % Seg Neuts % (Manual) Lymphocytes % (Manual) Seg Neutrophils # Seg Neutrophils # Man Lymphocytes # (Manual) Monocytes # (Manual) PT 17.0 H INR 1.36 H APTT 128.2 H* ABG pH ABG pO2 ABG HCO3 ABG O2 Saturation ABG Base Excess ABG Hemoglobin Oxyhemoglobin Sodium Potassium Chloride Carbon Dioxide 18 L Creatinine 0.5 L Glucose 105 H POC Glucose Lactic Acid Calcium 8.3 L Phosphorus 2.40 L Magnesium Total Bilirubin 1.30 H AST 761 H ALT 158 H Alkaline Phosphatase 143 H Ammonia Total Creatine Kinase CK-MB (CK-2) CK-MB (CK-2) Rel Index Total Protein Albumin 2.8 L Urine WBC (Auto) Salicylates Acetaminophen Plasma/Serum Alcohol 11/23/19 11/23/19 11/23/19 05:12 06:32 06:32 WBC 16.8 H RBC 3.31 L Hgb 8.9 L Hct 28.7 L MCH 27 L RDW 18.6 H Plt Count Lymph % (Auto) [place] % (Auto) [place] # Seg Neutrophils % Seg Neuts % (Manual) 94.0 H Lymphocytes % (Manual) 1.0 L Seg Neutrophils # Seg Neutrophils # Man 15.8 H Lymphocytes # (Manual) 0.2 L Monocytes # (Manual) PT INR APTT ABG pH ABG pO2 ABG HCO3 ABG O2 Saturation ABG Base Excess -3.2 L ABG Hemoglobin 9.0 L Oxyhemoglobin 93.6 L Sodium Potassium Chloride Carbon Dioxide Creatinine Glucose POC Glucose Lactic Acid 3.30 H* Calcium Phosphorus Magnesium Total Bilirubin AST ALT Alkaline Phosphatase Ammonia Total Creatine Kinase CK-MB (CK-2) CK-MB (CK-2) Rel Index Total Protein Albumin Urine WBC (Auto) Salicylates Acetaminophen Plasma/Serum Alcohol 11/24/19 11/24/19 11/24/19 04:35 04:35 05:22 WBC RBC Hgb Hct MCH RDW Plt Count Lymph % (Auto) [place] % (Auto) [place] # Seg Neutrophils % Seg Neuts % (Manual) Lymphocytes % (Manual) Seg Neutrophils # Seg Neutrophils # Man Lymphocytes # (Manual) Monocytes # (Manual) PT INR APTT ABG pH 7.475 H ABG pO2 ABG HCO3 29.4 H ABG O2 Saturation ABG Base Excess 5.4 H ABG Hemoglobin 9.0 L Oxyhemoglobin Sodium Potassium Chloride Carbon Dioxide Creatinine Glucose POC Glucose Lactic Acid Calcium Phosphorus Magnesium 1.40 L Total Bilirubin AST ALT Alkaline Phosphatase Ammonia 98.0 H Total Creatine Kinase CK-MB (CK-2) CK-MB (CK-2) Rel Index Total Protein Albumin Urine WBC (Auto) Salicylates Acetaminophen Plasma/Serum Alcohol 11/25/19 11/25/19 11/25/19 04:34 05:05 05:05 WBC 17.3 H RBC 2.88 L Hgb 7.8 L Hct 24.6 L MCH 27 L RDW 18.5 H Plt Count Lymph % (Auto) 7.7 L [place] % (Auto) 9.7 H [place] # 1.7 H Seg Neutrophils % 82.2 H Seg Neuts % (Manual) Lymphocytes % (Manual) Seg Neutrophils # 14.2 H Seg Neutrophils # Man Lymphocytes # (Manual) Monocytes # (Manual) PT INR APTT ABG pH ABG pO2 ABG HCO3 32.3 H ABG O2 Saturation ABG Base Excess 6.9 H ABG Hemoglobin 10.6 L Oxyhemoglobin 94.3 L Sodium 152 H D Potassium 2.3 L* D Chloride 107.8 H Carbon Dioxide 31 H D Creatinine 0.6 L Glucose 148 H POC Glucose Lactic Acid Calcium Phosphorus Magnesium Total Bilirubin AST 105 H ALT 71 H Alkaline Phosphatase 155 H Ammonia Total Creatine Kinase CK-MB (CK-2) CK-MB (CK-2) Rel Index Total Protein 5.2 L D Albumin 2.9 L Urine WBC (Auto) Salicylates Acetaminophen Plasma/Serum Alcohol 11/25/19 11/26/19 11/26/19 22:46 03:31 08:24 WBC 12.0 H RBC 3.00 L Hgb 8.0 L Hct 25.9 L MCH 27 L RDW 18.5 H Plt Count Lymph % (Auto) [place] % (Auto) [place] # Seg Neutrophils % Seg Neuts % (Manual) 89.0 H Lymphocytes % (Manual) 4.0 L Seg Neutrophils # Seg Neutrophils # Man 10.7 H Lymphocytes # (Manual) 0.5 L Monocytes # (Manual) PT INR APTT ABG pH 7.459 H ABG pO2 ABG HCO3 34.2 H ABG O2 Saturation ABG Base Excess 9.4 H ABG Hemoglobin 7.6 L Oxyhemoglobin 94.8 L Sodium 147 H Potassium 2.8 L* D Chloride Carbon Dioxide 33 H Creatinine 0.6 L Glucose 177 H POC Glucose Lactic Acid Calcium Phosphorus Magnesium Total Bilirubin AST ALT Alkaline Phosphatase Ammonia Total Creatine Kinase CK-MB (CK-2) CK-MB (CK-2) Rel Index Total Protein Albumin Urine WBC (Auto) Salicylates Acetaminophen Plasma/Serum Alcohol 11/26/19 08:24 WBC RBC Hgb Hct MCH RDW Plt Count Lymph % (Auto) [place] % (Auto) [place] # Seg Neutrophils % Seg Neuts % (Manual) Lymphocytes % (Manual) Seg Neutrophils # Seg Neutrophils # Man Lymphocytes # (Manual) Monocytes # (Manual) PT INR APTT ABG pH ABG pO2 ABG HCO3 ABG O2 Saturation ABG Base Excess ABG Hemoglobin Oxyhemoglobin Sodium 146 H Potassium 3.4 L D Chloride Carbon Dioxide Creatinine 0.5 L Glucose 165 H POC Glucose Lactic Acid Calcium Phosphorus Magnesium Total Bilirubin AST 57 H ALT Alkaline Phosphatase 166 H Ammonia Total Creatine Kinase CK-MB (CK-2) CK-MB (CK-2) Rel Index Total Protein Albumin 2.9 L Urine WBC (Auto) Salicylates Acetaminophen Plasma/Serum Alcohol Assessment and Plan Patient is a 54-year-old woman with a history of hypertension, depression, alcohol abuse, who presented with cardiac arrest. According patient's clinical findings, it is likely that she has had anoxic brain injury secondary to cardiac arrest. Plan: 1. Anoxic brain injury: CT head: No acute abnormality. -EEG: Generalized slowing. No seizures or epileptiform activity. Patient found to have intact corneal/VOR/cough reflexes, and is withdrawing and lower extremities, therefore patient is not found to be brain . However, given that patient had an out of hospital cardiac arrest, the time of which is uncertain, and findings on exam 4 days after cardiac arrest, the likelihood of meaningful neurological recovery is somewhat low. -Attempted to call patient's family, however no one was able to be reached. -Continue supportive care per primary team. -We will continue to monitor neurologic status. Patient will require further examination once sedation is completely held. Thank you for allowing me to take part in the care of this patient. Oliver Randhawa MD Neurology
--- NOTE | 2019-11-26 15:22 | Electroencephalogram Report ---
Electroencephalogram EEG Date of exam: 11/26/19 History: Patient is a 54-year-old woman with a history of hypertension, depression, alcohol abuse, who presents with cardiac arrest. Description: DESCRIPTION OF THE PROCEDURE: Electrodes were applied using Paste technique in positions dictated by International 10-20 system of placement. In addition to EEG data EKG and eye movements were recorded. DESCRIPTION OF ACTIVITY: At the onset of this recording, the patient is lying supine. In the background we note a 2-3 Hz delta activity that has an amplitude ranging 20-30uV. Additional low voltage rhythmic delta activity occurs at the anterior head regions bilaterally. There are no asymmetries in amplitude or frequency between hemispheres. Intermittent photic stimulation was not performed. Hyperventilation was not performed. EEG Impression: 1) Generalized slowing. 2) No seizures or epileptiform discharges CLINICAL INTERPRETATION: This routine video EEG, performed is abnormal secondary to above findings and is consistent with bi-hemispheric dysfunction and encephalopathy. The above described finding of diffuse slowing is etiologically non-specific and similar findings have been reported in cases of toxic, metabolic, hypoxic ischemic, infectious, medication, sleep deprivation, dementia, post-ictal state, and other causes of diffuse and multifocal encephalopathy.
--- NOTE | 2019-11-26 15:45 | Progress Note ---
Assessment and Plan / Anoxic brain injury: suspected CT head: No acute abnormality. neurology consult placed, EEG ordered /Acute Respiratory Arrest -Patient is intubated and on mechanical ventilation - CTA was done and negative for PE, heparin GTT discontinued - Echo quality is poor, showed diastolic dysfunction - continue ICU monitoring -Patient move her extremities and open her eyes when sedation is decreased /Hyperammonemia - likely from liver disease related to EtOH abuse - Patient has elevated ammonia level and on lactulose /Metabolic Acidosis -Alcohol ketoacidosis vs hypoprofusion - IVF -Continue to monitor /ELevated LFTs - ischemic hepatitis with h/o etoh abuse. could worsen - monitor LFTs /Leucocytosis with sepsis - Source could be UTI versus pneumonitis versus SBP. UA showed pyuria. RUQ US showed no ascites. - tracheal aspirate grew H. influenza - IV zosyn, ID following - hemodynamically stable /ALcohol USe Disorder - given ongoing Alcohol use,almost daily, IV Thiamine for now - monitor /Severe hypokalemia -Repleted -We will follow magnesium and potassium level FUll code The high probability of a clinically significant, sudden or life threatening deterioration of the [neurology,respiratory] system(s) required my full and direct attention, intervention and personal management. The aggregate critical care time was [32] minutes. This time is in addition to time spent performing reported procedures but includes the following: [x] Data Review and interpretation [x] Patient assessment and monitoring of vital signs [x] Documentation [x] Medication orders and management Brief History: 54-year-old female with a past medical history of Hypertension, Depression, Tobacco use Disorder, Alcohol use Disorder as confirmed by Daughter and pt's mother presents to the hospital status post cardiac arrest at home. EMS found pt in [place]. They were unable to intubate patient with a ET tube because she was clenching down therefore Joe airway placed. Per the ED physician who evaluated pt, Patient presented with a pulse, intermittent respirations, and bagging support via Joe airway with O2 sat of 100%. Accu-Chek of 71 obtained by EMS. She was intubated in the ER and called for admission. Subjective Date of service: 11/26/19 Objective - Constitutional Vitals: Vital Signs - 12hr 11/26/19 11/26/19 11/26/19 03:51 04:00 04:30 Temperature 99.7 F H Pulse Rate 108 H 90 Pulse Rate [ From Monitor] Respiratory 19 20 Rate Blood Pressure 152/93 137/79 O2 Sat by Pulse 97 95 Oximetry 11/26/19 11/26/19 11/26/19 05:00 05:10 05:30 Temperature Pulse Rate 101 H 85 85 Pulse Rate [ From Monitor] Respiratory 20 20 Rate Blood Pressure 155/97 155/97 135/84 O2 Sat by Pulse 99 99 98 Oximetry 11/26/19 11/26/19 11/26/19 06:00 06:30 07:00 Temperature Pulse Rate 86 77 72 Pulse Rate [ From Monitor] Respiratory 20 6 L 8 L Rate Blood Pressure 125/74 128/71 124/71 O2 Sat by Pulse 98 98 98 Oximetry 11/26/19 11/26/19 11/26/19 07:30 08:00 08:30 Temperature 98.8 F Pulse Rate 78 80 75 Pulse Rate [ 98 H From Monitor] Respiratory 15 10 L 10 L Rate Blood Pressure 128/71 122/68 125/74 O2 Sat by Pulse 100 Oximetry 11/26/19 11/26/19 11/26/19 08:50 09:00 09:30 Temperature Pulse Rate 85 103 H 98 H Pulse Rate [ From Monitor] Respiratory 13 20 Rate Blood Pressure 153/102 153/102 137/81 O2 Sat by Pulse 97 99 Oximetry 11/26/19 11/26/19 11/26/19 10:00 10:30 11:00 Temperature Pulse Rate 91 H 88 140 H Pulse Rate [ From Monitor] Respiratory 21 19 19 Rate Blood Pressure 124/74 156/78 179/120 O2 Sat by Pulse 97 97 96 Oximetry 11/26/19 11/26/19 11/26/19 11:30 12:00 12:30 Temperature Pulse Rate 114 H 71 84 Pulse Rate [ 79 From Monitor] Respiratory 12 16 19 Rate Blood Pressure 128/81 159/105 113/72 O2 Sat by Pulse 96 99 Oximetry General appearance: Present: other (on vent with sedation, elderly female) - EENT Eyes: no scleral icterus, no conjunctival injection ENT: clear oral mucosa, dentition normal, no oropharyngeal erythema Ears: bilateral: normal - Neck Neck: supple, normal ROM - Respiratory Respiratory effort: other (on vent) Respiratory: bilateral: rales - Cardiovascular Rhythm: regular Heart Sounds: Present: S1 & S2. Absent: gallop, rub Extremities: pulses intact, No edema, normal color - Gastrointestinal General gastrointestinal: Present: soft, non-tender, non-distended, normal bowel sounds - Integumentary Integumentary: clear, warm, dry - Musculoskeletal Musculoskeletal: other (sedated) - Neurologic Neurologic: other (intubated and sedated) - Psychiatric Psychiatric: no appropriate mood/affect, no intact judgment & insight, no memory intact - Labs CBC & Chem 7: 11/28/19 05:02 11/28/19 05:02 Labs: Abnormal lab results 11/25/19 11/26/19 11/26/19 Range/Units 22:46 03:31 08:24 WBC 12.0 H (4.5-11.0) K/mm3 RBC 3.00 L (3.65-5.03) M/mm3 Hgb 8.0 L (10.1-14.3) gm/dl Hct 25.9 L (30.3-42.9) % MCH 27 L (28-32) pg RDW 18.5 H (13.2-15.2) % Seg Neuts % (Manual) 89.0 H (40.0-70.0) % Lymphocytes % (Manual) 4.0 L (13.4-35.0) % Seg Neutrophils # Man 10.7 H (1.8-7.7) K/mm3 Lymphocytes # (Manual) 0.5 L (1.2-5.4) K/mm3 ABG pH 7.459 H (7.350-7.450) pH Units ABG HCO3 34.2 H (20.0-26.0) mmol/L ABG Base Excess 9.4 H (-2.0-3.0) mmol/L ABG Hemoglobin 7.6 L (12.0-16.0) gm/dl Oxyhemoglobin 94.8 L (95.0-99.0) % Sodium 147 H (137-145) mmol/L Potassium 2.8 L* D (3.6-5.0) mmol/L Carbon Dioxide 33 H (22-30) mmol/L Creatinine 0.6 L (0.7-1.2) mg/dL Glucose 177 H (65-100) mg/dL AST (5-40) units/L Alkaline Phosphatase (35-129) units/L Albumin (3.9-5) g/dL 11/26/19 Range/Units 08:24 WBC (4.5-11.0) K/mm3 RBC (3.65-5.03) M/mm3 Hgb (10.1-14.3) gm/dl Hct (30.3-42.9) % MCH (28-32) pg RDW (13.2-15.2) % Seg Neuts % (Manual) (40.0-70.0) % Lymphocytes % (Manual) (13.4-35.0) % Seg Neutrophils # Man (1.8-7.7) K/mm3 Lymphocytes # (Manual) (1.2-5.4) K/mm3 ABG pH (7.350-7.450) pH Units ABG HCO3 (20.0-26.0) mmol/L ABG Base Excess (-2.0-3.0) mmol/L ABG Hemoglobin (12.0-16.0) gm/dl Oxyhemoglobin (95.0-99.0) % Sodium 146 H (137-145) mmol/L Potassium 3.4 L D (3.6-5.0) mmol/L Carbon Dioxide (22-30) mmol/L Creatinine 0.5 L (0.7-1.2) mg/dL Glucose 165 H (65-100) mg/dL AST 57 H (5-40) units/L Alkaline Phosphatase 166 H (35-129) units/L Albumin 2.9 L (3.9-5) g/dL - Imaging and cardiology Chest x-ray: report reviewed CT Scan - head: report reviewed
[2019-11-26] MEDS: levETIRAcetam 500 MG in DEXTROSE 5% IN WATER 100 ML IV SCH (22:48)
[2019-11-27] MEDS: methylPREDNISolone Sod Succinate 125 MG/2 ML INJ IV SCH ×3 (00:56→17:20)
[2019-11-27] MEDS: LACTULOSE 20 GM/30 ML ORAL LIQD PO SCH ×5 (00:56→23:12)
--- NOTE | 2019-11-27 02:25 | XRay Report ---
CHEST 1 VIEW INDICATION / CLINICAL INFORMATION: follow up respiratory failure. COMPARISON: 11/26/2019 FINDINGS: SUPPORT DEVICES: Stable, satisfactory device positioning. HEART / MEDIASTINUM: No significant abnormality. LUNGS / PLEURA: No significant pulmonary or pleural abnormality. No pneumothorax. ADDITIONAL FINDINGS: No significant additional findings. IMPRESSION: 1. No acute findings. No interval change. Signer Name: Mitra Odell MD Signed: 11/27/2019 2:20 AM Workstation Name: [id number]
[2019-11-27] MEDS: diphenhydrAMINE 50 MG/ML VIAL IV SCH ×4 (04:20→21:29)
[2019-11-27 05:01] LABS: ABG Base Excess 9.1 mmol/L (-2.0-3.0); ABG HCO3 33.8 mmol/L (20.0-26.0); ABG Methemoglobin 0.5 % (0.0-1.5); ABG PCO2 47.5 mm Hg; ABG PH 7.47 pH Units (7.350-7.450)
[2019-11-27 05:03] LABS: Hematocrit 29.7 % (30.3-42.9); Hemoglobin 9.3 gm/dl (10.1-14.3)
[2019-11-27 05:22] LABS: BUN/Creatinine Ratio 36; Blood Urea Nitrogen 25 mg/dL (7-17); Calcium 9.8 mg/dL (8.4-10.2); Hemolysis Index 8
[2019-11-27] MEDS: hydrALAZINE 20 MG/1 ML INJ IV PRN ×2 (06:46→21:20)
[2019-11-27] MEDS: POTASSIUM CHLORIDE 10 MEQ 10 MEQ/100 ML BAG IV SCH ×4 (06:47→12:30)
--- NOTE | 2019-11-27 08:26 | Ultrasound Report ---
ULTRASOUND ABDOMEN, COMPLETE INDICATION: abdominal distension, elevated LFTs. COMPARISON: CT abdomen/pelvis from 03/28/2017. FINDINGS: Pancreas: No significant abnormality. Abdominal Aorta: No significant abnormality. IVC: No significant abnormality. Liver: The liver measures 16.4 cm in length. There is a 3.4 cm echogenic focus in the left lobe whic h is likely a hemangioma. Normal hepatopedal blood flow in the main portal vein. Gallbladder: No significant abnormality. Bile ducts: No significant abnormality. Common bile duct measures 6 mm. Kidneys: Right: 12.2 cm in length. No significant abnormality. Left: 10.9 cm in length. No signif icant abnormality. Spleen: No significant abnormality. Free fluid: None. Additional Findings: None. IMPRESSION: 1. Echogenic focus within the liver most likely represents a hemangioma. Otherwise unremarkable exam. Signer Name: Gus Ledezma MD Signed: 11/27/2019 8:21 AM Workstation Name: [id number]
[2019-11-27] MEDS: fentaNYL DRIP Premix 2,000 MCG/100 ML BAG IV SCH (08:45)
--- NOTE | 2019-11-27 08:56 | Progress Note ---
Assessment and Plan Acute cardiopulmonary arrest with ROSC Acute hypoxemic respiratory failure on MVS Acute metabolic-toxic encephalopathy Metabolic acidosis/alcoholic acidosis/Lactic acidosis Ischemic hepatitis Leucocytosis with lactic acidosis Tobacco use disorder ALcohol use Disorder Hypokalemia High grade fever- intermittent but ongoing -Aggressively replace potassium-40mEq ordered -Antibiotics de-escalated per ID to Ceftriaxone based on HILARIO/sensitivities -Start therapies for angioedema- benadryl, H2 blockers, steroids -Neurology consult pending, EEG pending -Continue CIWA protocol, in view of agitation. -Continue lactulose for hepatic encephalopathy -Start scheduled Librium- low does in view of alcohol abuse disorder and ongoing agitation -Adjust minute ventilation, decrease rate to 16 - -Continue with MVS, Lung protective strategies, monitor airway pressures -VAP bundle addressed -Continue aspiration precautions, HOB>40 -Continue daily assessment for readiness for SBT -Continue Stress ulcer prophylaxis -Continue enteric nutritional support. Monitor glycemic control, with target blood glucose 140-180 mg/dL while critically ill. -Avoid hypoglycemia -Continue daily SAT assessment as tolerated -Continue to wean supplemental oxygen for target O2 sat's > 90% -ABG and CXR in am -Continue to trend leukocytosis and lactic acidosis -Continue to treat for hepatic encephalopathy- especially with elevated ammonia levels- lactulose -Continue thiamine, multivitamin and electrolyte replacement -Continue to avoid nephrotoxins, adjust all medications for GFR and CrCL - Continue bronchodilators with pulmonary hygiene - Continue prn analgesia per CPOT score - Continue to maintain of sleep-wake cycle, avoid delirium - PT/OT/ROM exercises - Continue mobility protocol and skin assessment per protocol for pressure ulcer prevention - Continue to monitor for clinical seizures -Continue Nicotine withdrawal precautions - continue other care per attending / other consultants CONDITION: CRITICAL PROGNOSIS: GUARDED CODE STATUS: FULL CODE The high probability of a clinically significant, sudden or life-threatening deterioration of the [respiratory, cardiovascular,GI/hepatology] system(s) required my full and direct attention, intervention and personal management. The aggregate critical care time was [31] minutes without overlap. Time includes spent on; [x] Data Review and interpretation [x] Patient assessment and monitoring of vital signs [x] Documentation [x] Medication orders and management Subjective Date of service: 11/27/19 Interval history: Follow up for: OSH cardiopulmonary arrest; acute hypoxic respiratory failure on MVS: acute metabolic -toxic encephalopathy; sepsis; alcohol-tobacco use d isorder; ischemic hepatitis Seen and examined. Vitals, labs, medications, chart and imaging reviewed. Discussed with RT and RN and ICU team in IDT rounds Vitals, labs, medications, chart and imaging reviewed. Remains critically ill Tolerating tube feeding remains at goal with free water flushes at 200ml q4 for hypernatremia 146 On going agitation, orally intubated on MVS, on Fentanyl at 2mcg Has FMS, on lactulose, ammonia level at 98 on 11/24/2019 Did not tolerate SBTs this morning- had desaturations, tachycardia and tachypnea VENT AC-VC 20/425/6/30% 7.47/47/74/9.1/33.8 Objective Vital Signs - 12hr 11/26/19 11/26/19 11/26/19 21:00 21:30 21:35 Temperature Pulse Rate 121 H 112 H 117 H Respiratory 21 21 22 Rate Blood Pressure 157/102 159/102 159/102 O2 Sat by Pulse 97 98 98 Oximetry 11/26/19 11/26/19 11/26/19 22:00 22:30 23:00 Temperature Pulse Rate 115 H 120 H 113 H Respiratory 18 25 H 21 Rate Blood Pressure 154/94 161/95 164/97 O2 Sat by Pulse 97 97 Oximetry 11/26/19 11/26/19 11/27/19 23:30 23:33 00:00 Temperature 99.4 F Pulse Rate 110 H 109 H Respiratory 20 19 Rate Blood Pressure 152/98 151/106 O2 Sat by Pulse 96 97 Oximetry 11/27/19 11/27/19 11/27/19 00:17 00:30 01:00 Temperature Pulse Rate 99 H 90 102 H Respiratory 20 20 Rate Blood Pressure 151/106 153/80 140/80 O2 Sat by Pulse 98 97 99 Oximetry 11/27/19 11/27/19 11/27/19 01:30 02:00 02:30 Temperature Pulse Rate 83 77 94 H Respiratory 20 20 20 Rate Blood Pressure 140/77 143/77 142/80 O2 Sat by Pulse 99 96 96 Oximetry 11/27/19 11/27/19 11/27/19 03:00 03:29 03:30 Temperature 99.5 F Pulse Rate 96 H 112 H Respiratory 20 20 Rate Blood Pressure 147/87 147/87 O2 Sat by Pulse Oximetry 11/27/19 11/27/1920 03:50 04:00 04:30 Temperature Pulse Rate 105 H 97 H 107 H Respiratory 20 20 Rate Blood Pressure 167/91 149/82 169/100 O2 Sat by Pulse 97 94 95 Oximetry 11/27/19 11/27/19 11/27/19 05:00 05:30 06:00 Temperature Pulse Rate 94 H 100 H 118 H Respiratory 20 20 18 Rate Blood Pressure 174/92 158/98 188/114 O2 Sat by Pulse 96 96 96 Oximetry 11/27/19 11/27/19 11/27/19 06:30 06:46 07:00 Temperature Pulse Rate 122 H 113 H 118 H Respiratory 22 22 Rate Blood Pressure 192/115 192/115 165/94 O2 Sat by Pulse 96 95 Oximetry 11/27/19 11/27/19 11/27/19 07:30 08:00 08:30 Temperature Pulse Rate 121 H 105 H 129 H Respiratory 20 20 22 Rate Blood Pressure 132/80 124/76 172/111 O2 Sat by Pulse 97 89 Oximetry Constitutional: no acute distress, other (orally intuabted ETT at 22 cm at the lip to mVS, no dys-synchrony) Eyes: non-icteric ENT: oropharynx dry Neck: supple, no lymphadenopathy, no JVD Effort: mildly labored Ascultation: Bilateral: diminished breath sounds, rhonchi Cardiovascular: regular rate and rhythm (tachycardia), other (S1,S2) Gastrointestinal: normoactive bowel sounds, soft, non-tender, other (distended, non tender) Integumentary: normal Extremities: no cyanosis, no edema, pulses normal, no ischemia or petechiae Neurologic: unable to assess, other (awake but not tracking voice ) Psychiatric: other (Psychiatric: Unable to assess) CBC and BMP: 12/07/19 03:44 12/07/19 03:44 ABG, PT/INR, D-dimer: ABG ABG pH 7.470 pH Units (7.350-7.450) H 11/27/19 04:42 ABG pCO2 47.5 mm Hg 11/27/19 04:42 ABG pO2 74.0 mm Hg (80.0-90.0) L 11/27/19 04:42 ABG O2 Saturation 97.0 % (95.0-99.0) 03/10/20 04:42 PT/INR, D-dimer PT 17.0 Sec. (12.2-14.9) H 11/23/19 03:47 INR 1.36 (0.87-1.13) H 11/23/19 03:47 Abnormal lab findings: Abnormal Labs 11/22/19 11/22/19 11/22/19 23:17 23:18 23:27 WBC 21.2 H RBC 3.59 L Hgb 9.8 L Hct MCH 27 L RDW 18.6 H Plt Count 454 H Lymph % (Auto) Custer % (Auto) Custer # Seg Neutrophils % Seg Neuts % (Manual) 86.0 H Lymphocytes % (Manual) 9.0 L Seg Neutrophils # Seg Neutrophils # Man 18.2 H Lymphocytes # (Manual) Monocytes # (Manual) 1.1 H PT INR APTT ABG pH ABG pO2 ABG HCO3 ABG O2 Saturation ABG Base Excess ABG Hemoglobin Oxyhemoglobin Sodium Potassium Chloride Carbon Dioxide BUN Creatinine Glucose POC Glucose 53 L Lactic Acid Calcium Ionized Calcium Phosphorus Magnesium Total Bilirubin AST ALT Alkaline Phosphatase Ammonia Total Creatine Kinase CK-MB (CK-2) CK-MB (CK-2) Rel Index Total Protein Albumin Urine WBC (Auto) 40.0 H Salicylates Acetaminophen Plasma/Serum Alcohol 11/22/19 11/22/19 11/22/19 23:27 23:27 23:27 WBC RBC Hgb Hct MCH RDW Plt Count Lymph % (Auto) [place] % (Auto) Custer # Seg Neutrophils % Seg Neuts % (Manual) Lymphocytes % (Manual) Seg Neutrophils # Seg Neutrophils # Man Lymphocytes # (Manual) Monocytes # (Manual) PT INR APTT ABG pH ABG pO2 ABG HCO3 ABG O2 Saturation ABG Base Excess ABG Hemoglobin Oxyhemoglobin Sodium Potassium 2.4 L* Chloride 85.1 L Carbon Dioxide 19 L BUN Creatinine 0.5 L Glucose 261 H POC Glucose Lactic Acid Calcium Ionized Calcium Phosphorus Magnesium Total Bilirubin AST 609 H ALT 152 H Alkaline Phosphatase 160 H Ammonia 117.0 H Total Creatine Kinase 139 H CK-MB (CK-2) 8.3 H CK-MB (CK-2) Rel Index 5.9 H Total Protein Albumin 3.6 L Urine WBC (Auto) Salicylates < 0.3 L Acetaminophen Plasma/Serum Alcohol 11/22/19 11/22/19 11/23/19 23:27 23:27 01:10 WBC RBC Hgb Hct MCH RDW Plt Count Lymph % (Auto) [place] % (Auto) C[place] # Seg Neutrophils % Seg Neuts % (Manual) Lymphocytes % (Manual) Seg Neutrophils # Seg Neutrophils # Man Lymphocytes # (Manual) Monocytes # (Manual) PT INR APTT ABG pH 7.273 L ABG pO2 209.7 H ABG HCO3 ABG O2 Saturation 99.2 H ABG Base Excess -3.9 L ABG Hemoglobin 10.6 L Oxyhemoglobin 93.9 L Sodium Potassium Chloride Carbon Dioxide BUN Creatinine Glucose POC Glucose Lactic Acid Calcium Ionized Calcium Phosphorus Magnesium Total Bilirubin AST ALT Alkaline Phosphatase Ammonia Total Creatine Kinase CK-MB (CK-2) CK-MB (CK-2) Rel Index Total Protein Albumin Urine WBC (Auto) Salicylates Acetaminophen < 5.0 L Plasma/Serum Alcohol 0.08 H 11/23/19 11/23/19 11/23/19 01:19 01:19 03:47 WBC RBC Hgb Hct MCH RDW Plt Count Lymph % (Auto) [place] % (Auto) [place] # Seg Neutrophils % Seg Neuts % (Manual) Lymphocytes % (Manual) Seg Neutrophils # Seg Neutrophils # Man Lymphocytes # (Manual) Monocytes # (Manual) PT 16.3 H INR 1.29 H APTT ABG pH ABG pO2 ABG HCO3 ABG O2 Saturation ABG Base Excess ABG Hemoglobin Oxyhemoglobin Sodium Potassium Chloride Carbon Dioxide BUN Creatinine Glucose POC Glucose Lactic Acid 2.10 H* 5.00 H* Calcium Ionized Calcium Phosphorus Magnesium Total Bilirubin AST ALT Alkaline Phosphatase Ammonia Total Creatine Kinase CK-MB (CK-2) CK-MB (CK-2) Rel Index Total Protein Albumin Urine WBC (Auto) Salicylates Acetaminophen Plasma/Serum Alcohol 11/23/19 11/23/19 11/23/19 03:47 03:47 04:53 WBC RBC Hgb 9.4 L Hct MCH RDW Plt Count Lymph % (Auto) [place] % (Auto) C[place] # Seg Neutrophils % Seg Neuts % (Manual) Lymphocytes % (Manual) Seg Neutrophils # Seg Neutrophils # Man Lymphocytes # (Manual) Monocytes # (Manual) PT 17.0 H INR 1.36 H APTT 128.2 H* ABG pH ABG pO2 ABG HCO3 ABG O2 Saturation ABG Base Excess ABG Hemoglobin Oxyhemoglobin Sodium Potassium Chloride Carbon Dioxide 18 L BUN Creatinine 0.5 L Glucose 105 H POC Glucose Lactic Acid Calcium 8.3 L Ionized Calcium Phosphorus 2.40 L Magnesium Total Bilirubin 1.30 H AST 761 H ALT 158 H Alkaline Phosphatase 143 H Ammonia Total Creatine Kinase CK-MB (CK-2) CK-MB (CK-2) Rel Index Total Protein Albumin 2.8 L Urine WBC (Auto) Salicylates Acetaminophen Plasma/Serum Alcohol 11/23/19 11/23/19 11/23/19 05:12 06:32 06:32 WBC 16.8 H RBC 3.31 L Hgb 8.9 L Hct 28.7 L MCH 27 L RDW 18.6 H Plt Count Lymph % (Auto) [place] % (Auto) [place] # Seg Neutrophils % Seg Neuts % (Manual) 94.0 H Lymphocytes % (Manual) 1.0 L Seg Neutrophils # Seg Neutrophils # Man 15.8 H Lymphocytes # (Manual) 0.2 L Monocytes # (Manual) PT INR APTT ABG pH ABG pO2 ABG HCO3 ABG O2 Saturation ABG Base Excess -3.2 L ABG Hemoglobin 9.0 L Oxyhemoglobin 93.6 L Sodium Potassium Chloride Carbon Dioxide BUN Creatinine Glucose POC Glucose Lactic Acid Calcium Ionized Calcium 4.5 L Phosphorus Magnesium Total Bilirubin AST ALT Alkaline Phosphatase Ammonia Total Creatine Kinase CK-MB (CK-2) CK-MB (CK-2) Rel Index Total Protein Albumin Urine WBC (Auto) Salicylates Acetaminophen Plasma/Serum Alcohol 11/23/19 11/24/19 11/24/19 06:32 04:35 04:35 WBC RBC Hgb Hct MCH RDW Plt Count Lymph % (Auto) [place] % (Auto) [place] # Seg Neutrophils % Seg Neuts % (Manual) Lymphocytes % (Manual) Seg Neutrophils # Seg Neutrophils # Man Lymphocytes # (Manual) Monocytes # (Manual) PT INR APTT ABG pH ABG pO2 ABG HCO3 ABG O2 Saturation ABG Base Excess ABG Hemoglobin Oxyhemoglobin Sodium Potassium Chloride Carbon Dioxide BUN Creatinine Glucose POC Glucose Lactic Acid 3.30 H* Calcium Ionized Calcium Phosphorus Magnesium 1.40 L Total Bilirubin AST ALT Alkaline Phosphatase Ammonia 98.0 H Total Creatine Kinase CK-MB (CK-2) CK-MB (CK-2) Rel Index Total Protein Albumin Urine WBC (Auto) Salicylates Acetaminophen Plasma/Serum Alcohol 11/24/19 11/25/19 11/25/19 05:22 04:34 05:05 WBC 17.3 H RBC 2.88 L Hgb 7.8 L Hct 24.6 L MCH 27 L RDW 18.5 H Plt Count Lymph % (Auto) 7.7 L Custer % (Auto) 9.7 H Custer # 1.7 H Seg Neutrophils % 82.2 H Seg Neuts % (Manual) Lymphocytes % (Manual) Seg Neutrophils # 14.2 H Seg Neutrophils # Man Lymphocytes # (Manual) Monocytes # (Manual) PT INR APTT ABG pH 7.475 H ABG pO2 ABG HCO3 29.4 H 32.3 H ABG O2 Saturation ABG Base Excess 5.4 H 6.9 H ABG Hemoglobin 9.0 L 10.6 L Oxyhemoglobin 94.3 L Sodium Potassium Chloride Carbon Dioxide BUN Creatinine Glucose POC Glucose Lactic Acid Calcium Ionized Calcium Phosphorus Magnesium Total Bilirubin AST ALT Alkaline Phosphatase Ammonia Total Creatine Kinase CK-MB (CK-2) CK-MB (CK-2) Rel Index Total Protein Albumin Urine WBC (Auto) Salicylates Acetaminophen Plasma/Serum Alcohol 11/25/19 11/25/19 11/26/19 05:05 22:46 03:31 WBC RBC Hgb Hct MCH RDW Plt Count Lymph % (Auto) [place] % (Auto) [place] # Seg Neutrophils % Seg Neuts % (Manual) Lymphocytes % (Manual) Seg Neutrophils # Seg Neutrophils # Man Lymphocytes # (Manual) Monocytes # (Manual) PT INR APTT ABG pH 7.459 H ABG pO2 ABG HCO3 34.2 H ABG O2 Saturation ABG Base Excess 9.4 H ABG Hemoglobin 7.6 L Oxyhemoglobin 94.8 L Sodium 152 H D 147 H Potassium 2.3 L* D 2.8 L* D Chloride 107.8 H Carbon Dioxide 31 H D 33 H BUN Creatinine 0.6 L 0.6 L Glucose 148 H 177 H POC Glucose Lactic Acid Calcium Ionized Calcium Phosphorus Magnesium Total Bilirubin AST 105 H ALT 71 H Alkaline Phosphatase 155 H Ammonia Total Creatine Kinase CK-MB (CK-2) CK-MB (CK-2) Rel Index Total Protein 5.2 L D Albumin 2.9 L Urine WBC (Auto) Salicylates Acetaminophen Plasma/Serum Alcohol 11/26/19 11/26/19 11/27/19 08:24 08:24 04:20 WBC 12.0 H RBC 3.00 L Hgb 8.0 L 9.3 L Hct 25.9 L 29.7 L MCH 27 L RDW 18.5 H Plt Count Lymph % (Auto) [place] % (Auto) [place] # Seg Neutrophils % Seg Neuts % (Manual) 89.0 H Lymphocytes % (Manual) 4.0 L Seg Neutrophils # Seg Neutrophils # Man 10.7 H Lymphocytes # (Manual) 0.5 L Monocytes # (Manual) PT INR APTT ABG pH ABG pO2 ABG HCO3 ABG O2 Saturation ABG Base Excess ABG Hemoglobin Oxyhemoglobin Sodium 146 H Potassium 3.4 L D Chloride Carbon Dioxide BUN Creatinine 0.5 L Glucose 165 H POC Glucose Lactic Acid Calcium Ionized Calcium Phosphorus Magnesium Total Bilirubin AST 57 H ALT Alkaline Phosphatase 166 H Ammonia Total Creatine Kinase CK-MB (CK-2) CK-MB (CK-2) Rel Index Total Protein Albumin 2.9 L Urine WBC (Auto) Salicylates Acetaminophen Plasma/Serum Alcohol 11/27/19 11/27/19 11/27/19 04:28 04:42 05:37 WBC RBC Hgb Hct MCH RDW Plt Count Lymph % (Auto) [place] % (Auto) [place] # Seg Neutrophils % Seg Neuts % (Manual) Lymphocytes % (Manual) Seg Neutrophils # Seg Neutrophils # Man Lymphocytes # (Manual) Monocytes # (Manual) PT INR APTT ABG pH 7.470 H ABG pO2 74.0 L ABG HCO3 33.8 H ABG O2 Saturation ABG Base Excess 9.1 H ABG Hemoglobin 8.7 L Oxyhemoglobin 94.7 L Sodium 146 H Potassium 2.9 L* Chloride Carbon Dioxide BUN 25 H Creatinine Glucose 213 H POC Glucose 117 H Lactic Acid Calcium Ionized Calcium Phosphorus Magnesium Total Bilirubin AST ALT Alkaline Phosphatase Ammonia Total Creatine Kinase CK-MB (CK-2) CK-MB (CK-2) Rel Index Total Protein Albumin Urine WBC (Auto) Salicylates Acetaminophen Plasma/Serum Alcohol Chest x-ray: image reviewed Allied health notes reviewed: RT
[2019-11-27] MEDS ORDERED: POTASSIUM CHLORIDE 10 MEQ 10 MEQ/100 ML BAG IV SCH (11:00)
[2019-11-27] MEDS ORDERED: FUROSEMIDE 40 MG/4 ML INJ IV ONE (11:00)
[2019-11-27] MEDS: levETIRAcetam 500 MG in DEXTROSE 5% IN WATER 100 ML IV SCH ×2 (11:09→21:22)
[2019-11-27] MEDS: HEPARIN 5,000 UNIT/1 ML VIAL SUB-Q SCH ×2 (11:12→21:26)
[2019-11-27] MEDS: LANSOPRAZOLE 30 MG SOLUTAB FEEDTUBE SCH (11:13)
[2019-11-27] MEDS: chlordiazePOXIDE 25 MG CAP PO SCH ×2 (11:14→17:22)
[2019-11-27] MEDS ORDERED: POTASSIUM CHLORIDE 20 MEQ PACKET FEEDTUBE ONE (12:00)
--- NOTE | 2019-11-27 12:51 | Progress Note ---
Assessment and Plan Patient is a 54-year-old woman with a history of hypertension, depression, alcohol abuse, who presented with cardiac arrest. According patient's clinical findings, it is likely that she has had anoxic brain injury secondary to cardiac arrest. Plan: 1. Anoxic brain injury: CT head: No acute abnormality. -EEG: Generalized slowing. No seizures or epileptiform activity. Patient found to have intact corneal/VOR/cough reflexes, and is withdrawing and lower extremities, therefore patient is not found to be brain . However, given that patient had an out of hospital cardiac arrest, the time of which is uncertain, the likelihood of meaningful neurological recovery is somewhat low. -Discussed prognosis with patient's mother. Plan for family meeting later in the week, per mother. -Continue supportive care per primary team. -We will continue to monitor neurologic status. Patient will require further examination once sedation is completely held. Thank you for allowing me to take part in the care of this patient. Oliver Randhawa MD Neurology Subjective Date of service: 11/27/19 Principal diagnosis: Anoxic brain injury Interval history: No acute events overnight. Objective - Exam Narrative Exam: Patient is intubated, and comatose. Pupils bilaterally 3 mm and nonreactive to light. Intact corneal/VOR/cough reflexes. Withdraws bilaterally in lower extremities but not upper extremities. 2+ reflexes throughout. - Vital Sign Vital Signs - 12hr 11/27/19 11/27/19 11/27/19 01:00 01:30 02:00 Temperature Pulse Rate 102 H 83 77 Respiratory 20 20 20 Rate Blood Pressure 140/80 140/77 143/77 O2 Sat by Pulse 99 99 96 Oximetry 11/27/19 11/27/19 11/27/19 02:30 03:00 03:29 Temperature 99.5 F Pulse Rate 94 H 96 H Respiratory 20 20 Rate Blood Pressure 142/80 147/87 O2 Sat by Pulse 96 Oximetry 11/27/19 11/27/19 11/27/19 03:30 03:50 04:00 Temperature Pulse Rate 112 H 105 H 97 H Respiratory 20 20 Rate Blood Pressure 147/87 167/91 149/82 O2 Sat by Pulse 97 94 Oximetry 11/27/19 11/27/19 11/27/19 04:30 05:00 05:30 Temperature Pulse Rate 107 H 94 H 100 H Respiratory 20 20 20 Rate Blood Pressure 169/100 174/92 158/98 O2 Sat by Pulse 95 96 96 Oximetry 11/27/19 11/27/19 11/27/19 06:00 06:30 06:46 Temperature Pulse Rate 118 H 122 H 113 H Respiratory 18 22 Rate Blood Pressure 188/114 192/115 192/115 O2 Sat by Pulse 96 96 Oximetry 11/27/19 11/27/19 11/27/19 07:00 07:30 08:00 Temperature 98.8 F Pulse Rate 118 H 121 H 105 H Respiratory 22 20 20 Rate Blood Pressure 165/94 132/80 124/76 O2 Sat by Pulse 95 97 Oximetry 11/27/19 11/27/19 11/27/19 08:30 09:00 09:30 Temperature Pulse Rate 129 H 127 H 113 H Respiratory 22 21 20 Rate Blood Pressure 172/111 162/118 137/85 O2 Sat by Pulse 89 95 95 Oximetry 11/27/19 11/27/19 11/27/19 10:00 10:30 11:00 Temperature Pulse Rate 94 H 87 83 Respiratory 20 16 16 Rate Blood Pressure 132/78 132/78 136/76 O2 Sat by Pulse 96 96 97 Oximetry 11/27/19 11/27/19 11:30 12:00 Temperature Pulse Rate 85 92 H Respiratory 16 16 Rate Blood Pressure 135/79 124/76 O2 Sat by Pulse 96 97 Oximetry - General Apperance Constitutional: acutely ill - EENT EENT: ATNC, mucous membranes moist - Respiratory Respiratory: decreased breath sounds - Cardiovascular Cardiovascular: regular rate, normal S1, normal S2 Extremities: no clubbing, cyanosis, no inflammation - Gastrointestinal Gastrointestinal: normoactive bowel sounds, soft, non-tender - Laboratory Findings CBC and BMP: 11/27/19 04:20 11/27/19 04:28 Abnormal Lab Findings: Abnormal Labs 11/22/19 11/22/19 11/22/19 23:17 23:18 23:27 WBC 21.2 H RBC 3.59 L Hgb 9.8 L Hct MCH 27 L RDW 18.6 H Plt Count 454 H Lymph % (Auto) [place] % (Auto) [place] # Seg Neutrophils % Seg Neuts % (Manual) 86.0 H Lymphocytes % (Manual) 9.0 L Seg Neutrophils # Seg Neutrophils # Man 18.2 H Lymphocytes # (Manual) Monocytes # (Manual) 1.1 H PT INR APTT ABG pH ABG pO2 ABG HCO3 ABG O2 Saturation ABG Base Excess ABG Hemoglobin Oxyhemoglobin Sodium Potassium Chloride Carbon Dioxide BUN Creatinine Glucose POC Glucose 53 L Lactic Acid Calcium Ionized Calcium Phosphorus Magnesium Total Bilirubin AST ALT Alkaline Phosphatase Ammonia Total Creatine Kinase CK-MB (CK-2) CK-MB (CK-2) Rel Index Total Protein Albumin Urine WBC (Auto) 40.0 H Salicylates Acetaminophen Plasma/Serum Alcohol 11/22/19 11/22/19 11/22/19 23:27 23:27 23:27 WBC RBC Hgb Hct MCH RDW Plt Count Lymph % (Auto) [place] % (Auto) [place] # Seg Neutrophils % Seg Neuts % (Manual) Lymphocytes % (Manual) Seg Neutrophils # Seg Neutrophils # Man Lymphocytes # (Manual) Monocytes # (Manual) PT INR APTT ABG pH ABG pO2 ABG HCO3 ABG O2 Saturation ABG Base Excess ABG Hemoglobin Oxyhemoglobin Sodium Potassium 2.4 L* Chloride 85.1 L Carbon Dioxide 19 L BUN Creatinine 0.5 L Glucose 261 H POC Glucose Lactic Acid Calcium Ionized Calcium Phosphorus Magnesium Total Bilirubin AST 609 H ALT 152 H Alkaline Phosphatase 160 H Ammonia 117.0 H Total Creatine Kinase 139 H CK-MB (CK-2) 8.3 H CK-MB (CK-2) Rel Index 5.9 H Total Protein Albumin 3.6 L Urine WBC (Auto) Salicylates < 0.3 L Acetaminophen Plasma/Serum Alcohol 11/22/19 11/22/19 11/23/19 23:27 23:27 01:10 WBC RBC Hgb Hct MCH RDW Plt Count Lymph % (Auto) [place] % (Auto) [place] # Seg Neutrophils % Seg Neuts % (Manual) Lymphocytes % (Manual) Seg Neutrophils # Seg Neutrophils # Man Lymphocytes # (Manual) Monocytes # (Manual) PT INR APTT ABG pH 7.273 L ABG pO2 209.7 H ABG HCO3 ABG O2 Saturation 99.2 H ABG Base Excess -3.9 L ABG Hemoglobin 10.6 L Oxyhemoglobin 93.9 L Sodium Potassium Chloride Carbon Dioxide BUN Creatinine Glucose POC Glucose Lactic Acid Calcium Ionized Calcium Phosphorus Magnesium Total Bilirubin AST ALT Alkaline Phosphatase Ammonia Total Creatine Kinase CK-MB (CK-2) CK-MB (CK-2) Rel Index Total Protein Albumin Urine WBC (Auto) Salicylates Acetaminophen < 5.0 L Plasma/Serum Alcohol 0.08 H 11/23/19 11/23/19 11/23/19 01:19 01:19 03:47 WBC RBC Hgb Hct MCH RDW Plt Count Lymph % (Auto) [place] % (Auto) [place] # Seg Neutrophils % Seg Neuts % (Manual) Lymphocytes % (Manual) Seg Neutrophils # Seg Neutrophils # Man Lymphocytes # (Manual) Monocytes # (Manual) PT 16.3 H INR 1.29 H APTT ABG pH ABG pO2 ABG HCO3 ABG O2 Saturation ABG Base Excess ABG Hemoglobin Oxyhemoglobin Sodium Potassium Chloride Carbon Dioxide BUN Creatinine Glucose POC Glucose Lactic Acid 2.10 H* 5.00 H* Calcium Ionized Calcium Phosphorus Magnesium Total Bilirubin AST ALT Alkaline Phosphatase Ammonia Total Creatine Kinase CK-MB (CK-2) CK-MB (CK-2) Rel Index Total Protein Albumin Urine WBC (Auto) Salicylates Acetaminophen Plasma/Serum Alcohol 11/23/19 11/23/19 11/23/19 03:47 03:47 04:53 WBC RBC Hgb 9.4 L Hct MCH RDW Plt Count Lymph % (Auto) [place] % (Auto) [place] # Seg Neutrophils % Seg Neuts % (Manual) Lymphocytes % (Manual) Seg Neutrophils # Seg Neutrophils # Man Lymphocytes # (Manual) Monocytes # (Manual) PT 17.0 H INR 1.36 H APTT 128.2 H* ABG pH ABG pO2 ABG HCO3 ABG O2 Saturation ABG Base Excess ABG Hemoglobin Oxyhemoglobin Sodium Potassium Chloride Carbon Dioxide 18 L BUN Creatinine 0.5 L Glucose 105 H POC Glucose Lactic Acid Calcium 8.3 L Ionized Calcium Phosphorus 2.40 L Magnesium Total Bilirubin 1.30 H AST 761 H ALT 158 H Alkaline Phosphatase 143 H Ammonia Total Creatine Kinase CK-MB (CK-2) CK-MB (CK-2) Rel Index Total Protein Albumin 2.8 L Urine WBC (Auto) Salicylates Acetaminophen Plasma/Serum Alcohol 11/23/19 11/23/19 11/23/19 05:12 06:32 06:32 WBC 16.8 H RBC 3.31 L Hgb 8.9 L Hct 28.7 L MCH 27 L RDW 18.6 H Plt Count Lymph % (Auto) [place] % (Auto) [place] # Seg Neutrophils % Seg Neuts % (Manual) 94.0 H Lymphocytes % (Manual) 1.0 L Seg Neutrophils # Seg Neutrophils # Man 15.8 H Lymphocytes # (Manual) 0.2 L Monocytes # (Manual) PT INR APTT ABG pH ABG pO2 ABG HCO3 ABG O2 Saturation ABG Base Excess -3.2 L ABG Hemoglobin 9.0 L Oxyhemoglobin 93.6 L Sodium Potassium Chloride Carbon Dioxide BUN Creatinine Glucose POC Glucose Lactic Acid Calcium Ionized Calcium 4.5 L Phosphorus Magnesium Total Bilirubin AST ALT Alkaline Phosphatase Ammonia Total Creatine Kinase CK-MB (CK-2) CK-MB (CK-2) Rel Index Total Protein Albumin Urine WBC (Auto) Salicylates Acetaminophen Plasma/Serum Alcohol 11/23/19 11/24/19 11/24/19 06:32 04:35 04:35 WBC RBC Hgb Hct MCH RDW Plt Count Lymph % (Auto) [place] % (Auto) [place] # Seg Neutrophils % Seg Neuts % (Manual) Lymphocytes % (Manual) Seg Neutrophils # Seg Neutrophils # Man Lymphocytes # (Manual) Monocytes # (Manual) PT INR APTT ABG pH ABG pO2 ABG HCO3 ABG O2 Saturation ABG Base Excess ABG Hemoglobin Oxyhemoglobin Sodium Potassium Chloride Carbon Dioxide BUN Creatinine Glucose POC Glucose Lactic Acid 3.30 H* Calcium Ionized Calcium Phosphorus Magnesium 1.40 L Total Bilirubin AST ALT Alkaline Phosphatase Ammonia 98.0 H Total Creatine Kinase CK-MB (CK-2) CK-MB (CK-2) Rel Index Total Protein Albumin Urine WBC (Auto) Salicylates Acetaminophen Plasma/Serum Alcohol 11/24/19 11/25/19 11/25/19 05:22 04:34 05:05 WBC 17.3 H RBC 2.88 L Hgb 7.8 L Hct 24.6 L MCH 27 L RDW 18.5 H Plt Count Lymph % (Auto) 7.7 L [place] % (Auto) 9.7 H [place]ombs # 1.7 H Seg Neutrophils % 82.2 H Seg Neuts % (Manual) Lymphocytes % (Manual) Seg Neutrophils # 14.2 H Seg Neutrophils # Man Lymphocytes # (Manual) Monocytes # (Manual) PT INR APTT ABG pH 7.475 H ABG pO2 ABG HCO3 29.4 H 32.3 H ABG O2 Saturation ABG Base Excess 5.4 H 6.9 H ABG Hemoglobin 9.0 L 10.6 L Oxyhemoglobin 94.3 L Sodium Potassium Chloride Carbon Dioxide BUN Creatinine Glucose POC Glucose Lactic Acid Calcium Ionized Calcium Phosphorus Magnesium Total Bilirubin AST ALT Alkaline Phosphatase Ammonia Total Creatine Kinase CK-MB (CK-2) CK-MB (CK-2) Rel Index Total Protein Albumin Urine WBC (Auto) Salicylates Acetaminophen Plasma/Serum Alcohol 11/25/19 11/25/19 11/26/19 05:05 22:46 03:31 WBC RBC Hgb Hct MCH RDW Plt Count Lymph % (Auto) [place] % (Auto) [place] # Seg Neutrophils % Seg Neuts % (Manual) Lymphocytes % (Manual) Seg Neutrophils # Seg Neutrophils # Man Lymphocytes # (Manual) Monocytes # (Manual) PT INR APTT ABG pH 7.459 H ABG pO2 ABG HCO3 34.2 H ABG O2 Saturation ABG Base Excess 9.4 H ABG Hemoglobin 7.6 L Oxyhemoglobin 94.8 L Sodium 152 H D 147 H Potassium 2.3 L* D 2.8 L* D Chloride 107.8 H Carbon Dioxide 31 H D 33 H BUN Creatinine 0.6 L 0.6 L Glucose 148 H 177 H POC Glucose Lactic Acid Calcium Ionized Calcium Phosphorus Magnesium Total Bilirubin AST 105 H ALT 71 H Alkaline Phosphatase 155 H Ammonia Total Creatine Kinase CK-MB (CK-2) CK-MB (CK-2) Rel Index Total Protein 5.2 L D Albumin 2.9 L Urine WBC (Auto) Salicylates Acetaminophen Plasma/Serum Alcohol 11/26/19 11/26/19 11/27/19 08:24 08:24 04:20 WBC 12.0 H RBC 3.00 L Hgb 8.0 L 9.3 L Hct 25.9 L 29.7 L MCH 27 L RDW 18.5 H Plt Count Lymph % (Auto) [place] % (Auto) [place] # Seg Neutrophils % Seg Neuts % (Manual) 89.0 H Lymphocytes % (Manual) 4.0 L Seg Neutrophils # Seg Neutrophils # Man 10.7 H Lymphocytes # (Manual) 0.5 L Monocytes # (Manual) PT INR APTT ABG pH ABG pO2 ABG HCO3 ABG O2 Saturation ABG Base Excess ABG Hemoglobin Oxyhemoglobin Sodium 146 H Potassium 3.4 L D Chloride Carbon Dioxide BUN Creatinine 0.5 L Glucose 165 H POC Glucose Lactic Acid Calcium Ionized Calcium Phosphorus Magnesium Total Bilirubin AST 57 H ALT Alkaline Phosphatase 166 H Ammonia Total Creatine Kinase CK-MB (CK-2) CK-MB (CK-2) Rel Index Total Protein Albumin 2.9 L Urine WBC (Auto) Salicylates Acetaminophen Plasma/Serum Alcohol 11/27/19 11/27/19 11/27/19 04:28 04:28 04:42 WBC RBC Hgb Hct MCH RDW Plt Count Lymph % (Auto) [place] % (Auto) [place] # Seg Neutrophils % Seg Neuts % (Manual) Lymphocytes % (Manual) Seg Neutrophils # Seg Neutrophils # Man Lymphocytes # (Manual) Monocytes # (Manual) PT INR APTT ABG pH 7.470 H ABG pO2 74.0 L ABG HCO3 33.8 H ABG O2 Saturation ABG Base Excess 9.1 H ABG Hemoglobin 8.7 L Oxyhemoglobin 94.7 L Sodium 146 H Potassium 2.9 L* Chloride Carbon Dioxide BUN 25 H Creatinine Glucose 213 H POC Glucose Lactic Acid Calcium Ionized Calcium Phosphorus 1.00 L Magnesium Total Bilirubin AST ALT Alkaline Phosphatase Ammonia Total Creatine Kinase CK-MB (CK-2) CK-MB (CK-2) Rel Index Total Protein Albumin Urine WBC (Auto) Salicylates Acetaminophen Plasma/Serum Alcohol 11/27/19 11/27/19 05:37 12:20 WBC RBC Hgb Hct MCH RDW Plt Count Lymph % (Auto) [place] % (Auto) [place] # Seg Neutrophils % Seg Neuts % (Manual) Lymphocytes % (Manual) Seg Neutrophils # Seg Neutrophils # Man Lymphocytes # (Manual) Monocytes # (Manual) PT INR APTT ABG pH ABG pO2 ABG HCO3 ABG O2 Saturation ABG Base Excess ABG Hemoglobin Oxyhemoglobin Sodium Potassium Chloride Carbon Dioxide BUN Creatinine Glucose POC Glucose 117 H 220 H Lactic Acid Calcium Ionized Calcium Phosphorus Magnesium Total Bilirubin AST ALT Alkaline Phosphatase Ammonia Total Creatine Kinase CK-MB (CK-2) CK-MB (CK-2) Rel Index Total Protein Albumin Urine WBC (Auto) Salicylates Acetaminophen Plasma/Serum Alcohol
[2019-11-27] MEDS: cefTRIAXone/NS 2 GM/100 ML 2 GM/100 ML BAG IV SCH (13:25)
[2019-11-27] MEDS: PHOS-NAK POWDER PACKET PO SCH ×4 (13:26→23:16)
--- NOTE | 2019-11-27 13:53 | Progress Note ---
Assessment and Plan / Anoxic brain injury: suspected CT head: No acute abnormality. neurology consult placed, EEG ordered showed Generalized slowing. No seizures or epileptiform activity. Per neurology : Patient found to have intact corneal/VOR/cough reflexes, and is withdrawing and lower extremities, therefore patient is not found to be brain . However, given that patient had an out of hospital cardiac arrest, the time of which is uncertain, the likelihood of meaningful neurological recovery is somewhat low. family updated /Acute Respiratory Arrest -Patient is intubated and on mechanical ventilation - CTA was done and negative for PE, heparin GTT discontinued - Echo quality is poor, showed diastolic dysfunction - continue ICU monitoring -Patient move her extremities and open her eyes when sedation is decreased /Hyperammonemia - likely from liver disease related to EtOH abuse - Patient has elevated ammonia level and on lactulose /Metabolic Acidosis -Alcohol ketoacidosis vs hypoprofusion - IVF -Continue to monitor /ELevated LFTs - ischemic hepatitis with h/o etoh abuse. could worsen - monitor LFTs /Leucocytosis with sepsis - Source could be UTI versus pneumonitis versus SBP. UA showed pyuria. RUQ US showed no ascites. - tracheal aspirate grew H. influenza - IV zosyn, ID following - hemodynamically stable /ALcohol USe Disorder - given ongoing Alcohol use,almost daily, IV Thiamine for now - monitor /Severe hypokalemia -Repleted -We will follow magnesium and potassium level FUll code The high probability of a clinically significant, sudden or life threatening deterioration of the [neurology,respiratory] system(s) required my full and direct attention, intervention and personal management. The aggregate critical c are time was [32] minutes. This time is in addition to time spent performing reported procedures but includes the following: [x] Data Review and interpretation [x] Patient assessment and monitoring of vital signs [x] Documentation [x] Medication orders and management Brief History: 54-year-old female with a past medical history of Hypertension, Depression, Tobacco use Disorder, Alcohol use Disorder as confirmed by Daughter and pt's mother presents to the hospital status post cardiac arrest at home. EMS found pt in [place]. They were unable to intubate patient with a ET tube because she was clenching down therefore Joe airway placed. Per the ED physician who evaluated pt, Patient presented with a pulse, intermittent respirations, and bagging support via Joe airway with O2 sat of 100%. Accu-Chek of 71 obtained by EMS. She was intubated in the ER and called for admission. Subjective Date of service: 11/27/19 Principal diagnosis: Anoxic brain injury Interval history: Patient seen and examined remained intubated, unresponsive, updated family at bedside Pt on weaning trial of sedation - unresponsive with eyes wide open Objective - Exam Narrative Exam: General appearance: Present: other (on vent comatose, elderly female) - EENT Eyes: no scleral icterus, no conjunctival injection, pupil not reactive ENT: clear oral mucosa, dentition normal, no oropharyngeal erythema Ears: bilateral: normal - Neck Neck: supple, normal ROM - Respiratory Respiratory effort: other (on vent) Respiratory: bilateral: rales - Cardiovascular Rhythm: regular Heart Sounds: Present: S1 & S2. Absent: gallop, rub Extremities: pulses intact, No edema, normal color - Gastrointestinal General gastrointestinal: Present: soft, non-tender, non-distended, normal bowel sounds - Integumentary Integumentary: clear, warm, dry - Musculoskeletal Musculoskeletal: does not respond to commend - Neurologic Neurologic: other (intubated and 2+ reflexes throughout) - Psychiatric Psychiatric: no appropriate mood/affect, no intact judgment & insight, no memory intact - Constitutional Vitals: Vital Signs - 12hr 11/27/19 11/27/19 11/27/19 02:00 02:30 03:00 Temperature Pulse Rate 77 94 H 96 H Respiratory 20 20 20 Rate Blood Pressure 143/77 142/80 147/87 O2 Sat by Pulse 96 96 Oximetry 11/27/19 11/27/19 11/27/19 03:29 03:30 03:50 Temperature 99.5 F Pulse Rate 112 H 105 H Respiratory 20 Rate Blood Pressure 147/87 167/91 O2 Sat by Pulse 97 Oximetry 11/27/19 11/27/19 11/27/19 04:00 04:30 05:00 Temperature Pulse Rate 97 H 107 H 94 H Respiratory 20 20 20 Rate Blood Pressure 149/82 169/100 174/92 O2 Sat by Pulse 94 95 96 Oximetry 11/27/19 11/27/19 11/27/19 05:30 06:00 06:30 Temperature Pulse Rate 100 H 118 H 122 H Respiratory 20 18 22 Rate Blood Pressure 158/98 188/114 192/115 O2 Sat by Pulse 96 96 96 Oximetry 11/27/19 11/27/1920 06:46 07:00 07:30 Temperature Pulse Rate 113 H 118 H 121 H Respiratory 22 20 Rate Blood Pressure 192/115 165/94 132/80 O2 Sat by Pulse 95 Oximetry 11/27/19 11/27/19 11/27/19 08:00 08:30 09:00 Temperature 98.8 F Pulse Rate 105 H 129 H 127 H Respiratory 20 22 21 Rate Blood Pressure 124/76 172/111 162/118 O2 Sat by Pulse 97 89 95 Oximetry 11/27/19 11/27/19 11/27/19 09:30 10:00 10:30 Temperature Pulse Rate 113 H 94 H 87 Respiratory 20 20 16 Rate Blood Pressure 137/85 132/78 132/78 O2 Sat by Pulse 95 96 96 Oximetry 11/27/19 11/27/19 11/27/19 11:00 11:30 12:00 Temperature 99.0 F Pulse Rate 83 85 92 H Respiratory 16 16 16 Rate Blood Pressure 136/76 135/79 124/76 O2 Sat by Pulse 97 96 97 Oximetry 11/27/19 12:54 Temperature Pulse Rate 88 Respiratory Rate Blood Pressure 124/79 O2 Sat by Pulse 98 Oximetry - Labs CBC & Chem 7: 11/28/19 05:02 11/28/19 05:02 Labs: Abnormal lab results 11/23/19 11/27/19 11/27/19 Range/Units 06:32 04:20 04:28 Hgb 9.3 L (10.1-14.3) gm/dl Hct 29.7 L (30.3-42.9) % ABG pH (7.350-7.450) pH Units ABG pO2 (80.0-90.0) mm Hg ABG HCO3 (20.0-26.0) mmol/L ABG Base Excess (-2.0-3.0) mmol/L ABG Hemoglobin (12.0-16.0) gm/dl Oxyhemoglobin (95.0-99.0) % Sodium 146 H (137-145) mmol/L Potassium 2.9 L* (3.6-5.0) mmol/L BUN 25 H (7-17) mg/dL Glucose 213 H (65-100) mg/dL POC Glucose (70-105) Ionized Calcium 4.5 L (4.8-5.6) mg/dL Phosphorus (2.5-4.5) mg/dL 11/27/19 11/27/19 11/27/19 Range/Units 04:28 04:42 05:37 Hgb (10.1-14.3) gm/dl Hct (30.3-42.9) % ABG pH 7.470 H (7.350-7.450) pH Units ABG pO2 74.0 L (80.0-90.0) mm Hg ABG HCO3 33.8 H (20.0-26.0) mmol/L ABG Base Excess 9.1 H (-2.0-3.0) mmol/L ABG Hemoglobin 8.7 L (12.0-16.0) gm/dl Oxyhemoglobin 94.7 L (95.0-99.0) % Sodium (137-145) mmol/L Potassium (3.6-5.0) mmol/L BUN (7-17) mg/dL Glucose (65-100) mg/dL POC Glucose 117 H (70-105) Ionized Calcium (4.8-5.6) mg/dL Phosphorus 1.00 L (2.5-4.5) mg/dL 11/27/19 Range/Units 12:20 Hgb (10.1-14.3) gm/dl Hct (30.3-42.9) % ABG pH (7.350-7.450) pH Units ABG pO2 (80.0-90.0) mm Hg ABG HCO3 (20.0-26.0) mmol/L ABG Base Excess (-2.0-3.0) mmol/L ABG Hemoglobin (12.0-16.0) gm/dl Oxyhemoglobin (95.0-99.0) % Sodium (137-145) mmol/L Potassium (3.6-5.0) mmol/L BUN (7-17) mg/dL Glucose (65-100) mg/dL POC Glucose 220 H (70-105) Ionized Calcium (4.8-5.6) mg/dL Phosphorus (2.5-4.5) mg/dL
--- NOTE | 2019-11-27 14:04 | Progress Note ---
Assessment and Plan Cultures: 11/22/2019 urine culture:no significant growth 11/22/2019 tracheal aspirate culture: H. influenzae 11/23/2019 blood culture: No growth A/P: 54-year-old female with hypertension, depression, tobacco use, alcohol abuse was brought into the emergency room on 11/22/2019 after she went into respiratory arrest at home requiring CPR by EMS: #Sepsis: Source could be UTI versus pneumonitis versus SBP. UA showed pyuria. RUQ US showed no ascites. #Pneumonitis, acute respiratory failure: Possibly aspiration. No dense pneumonia seen. On mechanical ventilation. #Elevated LFTs, alcohol abuse, status post arrest requiring CPR: Trend LFTs. Also recommend abdominal ultrasound. #Acute encephalopathy: Likely multifactorial from alcohol abuse, status post arrest, hypernatremia Recs: Continue IV ceftriaxone 2 g daily overall day 5 of abx therapy Repeat CBC tomorrow AM, if improved, will plan to stop antibiotics. Isaías Aaron MD, FACP [facility] ([facility] C: [phone] O: [phone] F: [phone] Subjective Date of service: 11/27/19 Principal diagnosis: Anoxic brain injury Interval history: Remains afebrile. Remains intubated on the vent. Eyes open but not tracking or following commands. Discussed with RN. Objective - Exam Narrative Exam: Physical Exam: Constitutional: eyes open, intubated Head, Ears, Nose: Normocephalic, atraumatic. External ears, nose normal Eyes: Conjunctivae/corneas clear. No icterus. No ptosis. Neck: intubated Oral: intubated Cardiovascular: S1, S2 normal Respiratory: Good air entry, clear to auscultation bilaterally GI: slightly distended, bowel sounds present. Rectal tube present with liquid stool Musculoskeletal: No pedal edema, no cyanosis. Skin: No rash or abscess Hem/Lymphatic: No palpable cervical or supraclavicular nodes. No lymphangitis Psych: no agitation. Neurological: eyes open, not following commands, intubated, on vent - Constitutional Vitals: Vital Signs Temp Pulse Resp BP Pulse Ox 99.0 F 88 16 124/79 98 11/27/19 12:00 11/27/19 12:54 11/27/19 12:00 11/27/19 12:54 11/27/19 12:54 Temperature -Last 24 Hours Temperature 99.0 F Temperature 98.8 F Temperature 99.5 F Temperature 99.4 F Temperature 97.5 F Temperature 98.7 F - Labs CBC & Chem 7: 11/27/19 04:20 11/27/19 04:28 Labs: Abnormal lab results 11/23/19 11/27/19 11/27/19 Range/Units 06:32 04:20 04:28 Hgb 9.3 L (10.1-14.3) gm/dl Hct 29.7 L (30.3-42.9) % ABG pH (7.350-7.450) pH Units ABG pO2 (80.0-90.0) mm Hg ABG HCO3 (20.0-26.0) mmol/L ABG Base Excess (-2.0-3.0) mmol/L ABG Hemoglobin (12.0-16.0) gm/dl Oxyhemoglobin (95.0-99.0) % Sodium 146 H (137-145) mmol/L Potassium 2.9 L* (3.6-5.0) mmol/L BUN 25 H (7-17) mg/dL Glucose 213 H (65-100) mg/dL POC Glucose (70-105) Ionized Calcium 4.5 L (4.8-5.6) mg/dL Phosphorus (2.5-4.5) mg/dL 11/27/19 11/27/19 11/27/19 Range/Units 04:28 04:42 05:37 Hgb (10.1-14.3) gm/dl Hct (30.3-42.9) % ABG pH 7.470 H (7.350-7.450) pH Units ABG pO2 74.0 L (80.0-90.0) mm Hg ABG HCO3 33.8 H (20.0-26.0) mmol/L ABG Base Excess 9.1 H (-2.0-3.0) mmol/L ABG Hemoglobin 8.7 L (12.0-16.0) gm/dl Oxyhemoglobin 94.7 L (95.0-99.0) % Sodium (137-145) mmol/L Potassium (3.6-5.0) mmol/L BUN (7-17) mg/dL Glucose (65-100) mg/dL POC Glucose 117 H (70-105) Ionized Calcium (4.8-5.6) mg/dL Phosphorus 1.00 L (2.5-4.5) mg/dL 11/27/19 Range/Units 12:20 Hgb (10.1-14.3) gm/dl Hct (30.3-42.9) % ABG pH (7.350-7.450) pH Units ABG pO2 (80.0-90.0) mm Hg ABG HCO3 (20.0-26.0) mmol/L ABG Base Excess (-2.0-3.0) mmol/L ABG Hemoglobin (12.0-16.0) gm/dl Oxyhemoglobin (95.0-99.0) % Sodium (137-145) mmol/L Potassium (3.6-5.0) mmol/L BUN (7-17) mg/dL Glucose (65-100) mg/dL POC Glucose 220 H (70-105) Ionized Calcium (4.8-5.6) mg/dL Phosphorus (2.5-4.5) mg/dL
[2019-11-27 16:41] LABS: BUN/Creatinine Ratio 40; Blood Urea Nitrogen 24 mg/dL (7-17); Calcium 9.7 mg/dL (8.4-10.2); Hemolysis Index 8
[2019-11-28] MEDS: methylPREDNISolone Sod Succinate 125 MG/2 ML INJ IV SCH (00:09)
[2019-11-28] MEDS: LORazepam 2 MG/ML VIAL IV PRN ×3 (01:39→15:08)
[2019-11-28] MEDS: chlordiazePOXIDE 25 MG CAP PO SCH ×4 (01:39→22:00)
[2019-11-28] MEDS: fentaNYL DRIP Premix 2,000 MCG/100 ML BAG IV SCH ×2 (02:36→15:36)
--- NOTE | 2019-11-28 03:53 | XRay Report ---
CHEST 1 VIEW INDICATION / CLINICAL INFORMATION: follow up respiratory failure. COMPARISON: 11/27/2019 FINDINGS: SUPPORT DEVICES: Stable, satisfactory device positioning. HEART / MEDIASTINUM: No significant abnormality. LUNGS / PLEURA: No significant pulmonary or pleural abnormality. No pneumothorax. ADDITIONAL FINDINGS: No significant additional findings. IMPRESSION: 1. No acute findings. No interval change. Signer Name: Mitra Odell MD Signed: 11/28/2019 3:48 AM Workstation Name: [id number]
[2019-11-28] MEDS: diphenhydrAMINE 50 MG/ML VIAL IV SCH (04:00)
[2019-11-28 05:19] LABS: ABG Base Excess 7.3 mmol/L (-2.0-3.0); ABG HCO3 33.6 mmol/L (20.0-26.0); ABG Methemoglobin 0.5 % (0.0-1.5); ABG Oxygen Saturation 94.1 % (95.0-99.0); ABG PCO2 54.4 mm Hg; ABG PH 7.408 pH Units (7.350-7.450); ABG PO2 72.4 mm Hg (80.0-90.0)
[2019-11-28] MEDS: LACTULOSE 20 GM/30 ML ORAL LIQD PO SCH ×3 (05:21→18:10)
[2019-11-28] MEDS: PHOS-NAK POWDER PACKET PO SCH (05:22)
[2019-11-28 05:37] LABS: Hemoglobin 8.3 gm/dl (10.1-14.3); Mean Corpuscular HGB Conc 31 % (30-34); Mean Corpuscular Volume 88 fl (79-97); Platelet Count 479 K/mm3 (140-440); Red Blood Count 3.06 M/mm3 (3.65-5.03)
[2019-11-28 05:58] LABS: BUN/Creatinine Ratio 42; Blood Urea Nitrogen 25 mg/dL (7-17); Calcium 9.6 mg/dL (8.4-10.2); Hemolysis Index 41
[2019-11-28 07:20] LABS: Anisocytosis Few; Band Neutrophils # (Manual) 0.3 K/mm3; Basophils % (Manual) 0 % (0.0-1.8); Eosinophils % (Manual) 0 % (0.0-4.3); Total Cells Counted 100
[2019-11-28 07:21] LABS: Platelet Estimate Consistent w Auto; Tear Drop Cells Rare
[2019-11-28] MEDS: hydrALAZINE 20 MG/1 ML INJ IV PRN (08:56)
[2019-11-28] MEDS: LANSOPRAZOLE 30 MG SOLUTAB FEEDTUBE SCH (09:04)
[2019-11-28] MEDS: HEPARIN 5,000 UNIT/1 ML VIAL SUB-Q SCH ×2 (09:04→22:00)
[2019-11-28] MEDS: levETIRAcetam 500 MG in DEXTROSE 5% IN WATER 100 ML IV SCH ×2 (09:04→22:00)
--- NOTE | 2019-11-28 09:22 | Progress Note ---
Assessment and Plan Acute cardiopulmonary arrest with ROSC Acute hypoxemic respiratory failure on MVS Acute metabolic-toxic encephalopathy Metabolic acidosis/alcoholic acidosis/Lactic acidosis- improved Ischemic hepatitis Leucocytosis with lactic acidosis-improving Tobacco use disorder Alcohol use Disorder Hypokalemia-resolved High grade fever- intermittent but ongoing Acute renal insufficiency -Antibiotics de-escalated per ID to Ceftriaxone based on HILARIO/sensitivities- plan to discontinue after 7 days of therapy -On going therapies for angioedema- Benadryl, H2 blockers, steroids (discontinue benadryl, wean steroids) -Neurology consult notes reviewed, discussed with Neurology. Family meeting arranged with Neurology with family for 1230 tomorrow. I will be off service but will discuss with my partner to be available for the meeting -Continue CIWA protocol, in view of agitation. -Continue lactulose for hepatic encephalopathy -Continue scheduled Librium, appears to be less agitated -Start SBTs now that she is less agitated -OK to switch IV Keppra to oral route -Complete antibiotics per ID -Monitor renal function closely, has been getting intermittent diuretics. - -Continue with MVS, Lung protective strategies, monitor airway pressures -VAP bundle addressed -Continue aspiration precautions, HOB>40 -Continue daily assessment for readiness for SBT -Continue Stress ulcer prophylaxis -Continue enteric nutritional support. Monitor glycemic control, with target blood glucose 140-180 mg/dL while critically ill. -Avoid hypoglycemia -Continue to wean supplemental oxygen for target O2 sat's > 90% -ABG and CXR in am -Continue thiamine, multivitamin and electrolyte replacement -Continue to avoid nephrotoxins, adjust all medications for GFR and CrCL - Continue bronchodilators with pulmonary hygiene - Continue prn analgesia per CPOT score - Continue to maintain of sleep-wake cycle, avoid delirium - PT/OT/ROM exercises - Continue mobility protocol and skin assessment per protocol for pressure ulcer prevention - Continue to monitor for clinical seizures - continue other care per attending / other consultants CONDITION: CRITICAL PROGNOSIS: GUARDED CODE STATUS: FULL CODE The high probability of a clinically significant, sudden or life-threatening deterioration of the [respiratory, cardiovascular,GI/hepatology. neurology] system(s) required my full and direct attention, intervention and personal management. The aggregate critical care time was [31] minutes without overlap. Time includes spent on; [x] Data Review and interpretation [x] Patient assessment and monitoring of vital signs [x] Documentation [x] Medication orders and management Subjective Date of service: 11/28/19 Principal diagnosis: Anoxic brain injury Interval history: Follow up for: OSH cardiopulmonary arrest; acute hypoxic respiratory failure: acute metabolic -toxic encephalopathy; sepsis; alcohol-tobacco use disorder; ischemic hepatitis Seen and examined. Vitals, labs, medications, chart and imaging reviewed. Discussed with RT and RN and ICU team in IDT rounds Vitals, labs, medications, chart and imaging reviewed. Tolerating tube feeding On going agitation, remains orally intubated on MVS Did not tolerate SBTs this morning- had desaturations and tachypnea with tachycardia VENT AC-VC 16/425/6/30% Currently on Ceftriaxone day 6/ of therapy Objective Vital Signs - 12hr 11/27/19 11/27/19 11/27/19 21:30 22:00 22:30 Temperature Pulse Rate 100 H 92 H 86 Respiratory 16 16 16 Rate Blood Pressure 144/84 126/79 125/78 O2 Sat by Pulse 92 95 95 Oximetry 11/27/19 11/27/19 11/27/19 23:00 23:30 23:49 Temperature Pulse Rate 76 82 Respiratory 16 16 Rate Blood Pressure 130/77 130/77 155/93 O2 Sat by Pulse 99 83 L Oximetry 11/28/19 11/28/19 11/28/19 00:00 00:30 00:48 Temperature 99.4 F Pulse Rate 89 89 91 H Respiratory 16 16 Rate Blood Pressure 150/99 156/104 150/99 O2 Sat by Pulse 99 98 98 Oximetry 11/28/19 11/28/19 11/28/19 01:00 01:30 02:00 Temperature Pulse Rate 88 99 H 79 Respiratory 16 17 16 Rate Blood Pressure 156/102 163/105 133/86 O2 Sat by Pulse 92 95 Oximetry 11/28/19 11/28/19 11/28/19 02:30 03:00 03:30 Temperature Pulse Rate 76 67 65 Respiratory 16 16 16 Rate Blood Pressure 133/87 144/90 154/92 O2 Sat by Pulse 96 97 97 Oximetry 11/28/19 11/28/19 11/28/19 03:41 04:00 04:03 Temperature 99.0 F Pulse Rate 62 65 Respiratory 16 Rate Blood Pressure 155/94 155/94 O2 Sat by Pulse 98 98 Oximetry 11/28/19 11/28/19 11/28/19 04:30 05:00 05:30 Temperature Pulse Rate 90 70 65 Respiratory 13 16 16 Rate Blood Pressure 152/108 139/85 147/88 O2 Sat by Pulse 94 97 98 Oximetry 11/28/19 11/28/19 11/28/19 06:00 06:30 08:00 Temperature 97.6 F Pulse Rate 60 64 53 L Respiratory 16 16 Rate Blood Pressure 153/84 159/90 154/97 O2 Sat by Pulse 98 98 99 Oximetry 11/28/19 08:56 Temperature Pulse Rate 56 L Respiratory Rate Blood Pressure 161/93 O2 Sat by Pulse Oximetry Constitutional: no acute distress, other (orally intuabted ETT at 22 cm at the lip to mVS, no dys-synchrony, tongue swelling improving) Eyes: non-icteric ENT: oropharynx dry Neck: supple, no lymphadenopathy, no JVD Effort: mildly labored Ascultation: Bilateral: diminished breath sounds, rhonchi Cardiovascular: regular rate and rhythm (tachycardia), other (S1,S2) Gastrointestinal: normoactive bowel sounds, soft, non-tender Integumentary: normal Extremities: no cyanosis, no edema, pulses normal, no ischemia or petechiae Neurologic: unable to assess, other (awake but not tracking voice ) Psychiatric: other (Psychiatric: Unable to assess) CBC and BMP: 12/07/19 03:44 12/07/19 03:44 ABG, PT/INR, D-dimer: ABG ABG pH 7.408 pH Units (7.350-7.450) 11/28/19 05:00 ABG pCO2 54.4 mm Hg 11/28/19 05:00 ABG pO2 72.4 mm Hg (80.0-90.0) L 11/28/19 05:00 ABG O2 Saturation 94.1 % (95.0-99.0) L 11/28/19 05:00 PT/INR, D-dimer PT 17.0 Sec. (12.2-14.9) H 11/23/19 03:47 INR 1.36 (0.87-1.13) H 11/23/19 03:47 Abnormal lab findings: Abnormal Labs 11/22/19 11/22/19 11/22/19 23:17 23:18 23:27 WBC 21.2 H RBC 3.59 L Hgb 9.8 L Hct MCH 27 L RDW 18.6 H Plt Count 454 H Lymph % (Auto) Fann[place] % (Auto) Fannin # Seg Neutrophils % Seg Neuts % (Manual) 86.0 H Lymphocytes % (Manual) 9.0 L Seg Neutrophils # Seg Neutrophils # Man 18.2 H Lymphocytes # (Manual) Monocytes # (Manual) 1.1 H PT INR APTT ABG pH ABG pO2 ABG HCO3 ABG O2 Saturation ABG Base Excess ABG Hemoglobin Oxyhemoglobin Sodium Potassium Chloride Carbon Dioxide BUN Creatinine Glucose POC Glucose 53 L Lactic Acid Calcium Ionized Calcium Phosphorus Magnesium Total Bilirubin AST ALT Alkaline Phosphatase Ammonia Total Creatine Kinase CK-MB (CK-2) CK-MB (CK-2) Rel Index Total Protein Albumin Urine WBC (Auto) 40.0 H Salicylates Acetaminophen Plasma/Serum Alcohol 11/22/19 11/22/19 11/22/19 23:27 23:27 23:27 WBC RBC Hgb Hct MCH RDW Plt Count Lymph % (Auto) [place] % (Auto) F[place] # Seg Neutrophils % Seg Neuts % (Manual) Lymphocytes % (Manual) Seg Neutrophils # Seg Neutrophils # Man Lymphocytes # (Manual) Monocytes # (Manual) PT INR APTT ABG pH ABG pO2 ABG HCO3 ABG O2 Saturation ABG Base Excess ABG Hemoglobin Oxyhemoglobin Sodium Potassium 2.4 L* Chloride 85.1 L Carbon Dioxide 19 L BUN Creatinine 0.5 L Glucose 261 H POC Glucose Lactic Acid Calcium Ionized Calcium Phosphorus Magnesium Total Bilirubin AST 609 H ALT 152 H Alkaline Phosphatase 160 H Ammonia 117.0 H Total Creatine Kinase 139 H CK-MB (CK-2) 8.3 H CK-MB (CK-2) Rel Index 5.9 H Total Protein Albumin 3.6 L Urine WBC (Auto) Salicylates < 0.3 L Acetaminophen Plasma/Serum Alcohol 11/22/19 11/22/19 11/23/19 23:27 23:27 01:10 WBC RBC Hgb Hct MCH RDW Plt Count Lymph % (Auto) [place] % (Auto) [place] # Seg Neutrophils % Seg Neuts % (Manual) Lymphocytes % (Manual) Seg Neutrophils # Seg Neutrophils # Man Lymphocytes # (Manual) Monocytes # (Manual) PT INR APTT ABG pH 7.273 L ABG pO2 209.7 H ABG HCO3 ABG O2 Saturation 99.2 H ABG Base Excess -3.9 L ABG Hemoglobin 10.6 L Oxyhemoglobin 93.9 L Sodium Potassium Chloride Carbon Dioxide BUN Creatinine Glucose POC Glucose Lactic Acid Calcium Ionized Calcium Phosphorus Magnesium Total Bilirubin AST ALT Alkaline Phosphatase Ammonia Total Creatine Kinase CK-MB (CK-2) CK-MB (CK-2) Rel Index Total Protein Albumin Urine WBC (Auto) Salicylates Acetaminophen < 5.0 L Plasma/Serum Alcohol 0.08 H 11/23/19 11/23/19 11/23/19 01:19 01:19 03:47 WBC RBC Hgb Hct MCH RDW Plt Count Lymph % (Auto) [place] % (Auto) [place] # Seg Neutrophils % Seg Neuts % (Manual) Lymphocytes % (Manual) Seg Neutrophils # Seg Neutrophils # Man Lymphocytes # (Manual) Monocytes # (Manual) PT 16.3 H INR 1.29 H APTT ABG pH ABG pO2 ABG HCO3 ABG O2 Saturation ABG Base Excess ABG Hemoglobin Oxyhemoglobin Sodium Potassium Chloride Carbon Dioxide BUN Creatinine Glucose POC Glucose Lactic Acid 2.10 H* 5.00 H* Calcium Ionized Calcium Phosphorus Magnesium Total Bilirubin AST ALT Alkaline Phosphatase Ammonia Total Creatine Kinase CK-MB (CK-2) CK-MB (CK-2) Rel Index Total Protein Albumin Urine WBC (Auto) Salicylates Acetaminophen Plasma/Serum Alcohol 11/23/19 11/23/19 11/23/19 03:47 03:47 04:53 WBC RBC Hgb 9.4 L Hct MCH RDW Plt Count Lymph % (Auto) [place] % (Auto) [place] # Seg Neutrophils % Seg Neuts % (Manual) Lymphocytes % (Manual) Seg Neutrophils # Seg Neutrophils # Man Lymphocytes # (Manual) Monocytes # (Manual) PT 17.0 H INR 1.36 H APTT 128.2 H* ABG pH ABG pO2 ABG HCO3 ABG O2 Saturation ABG Base Excess ABG Hemoglobin Oxyhemoglobin Sodium Potassium Chloride Carbon Dioxide 18 L BUN Creatinine 0.5 L Glucose 105 H POC Glucose Lactic Acid Calcium 8.3 L Ionized Calcium Phosphorus 2.40 L Magnesium Total Bilirubin 1.30 H AST 761 H ALT 158 H Alkaline Phosphatase 143 H Ammonia Total Creatine Kinase CK-MB (CK-2) CK-MB (CK-2) Rel Index Total Protein Albumin 2.8 L Urine WBC (Auto) Salicylates Acetaminophen Plasma/Serum Alcohol 11/23/19 11/23/19 11/23/19 05:12 06:32 06:32 WBC 16.8 H RBC 3.31 L Hgb 8.9 L Hct 28.7 L MCH 27 L RDW 18.6 H Plt Count Lymph % (Auto) [place] % (Auto) [place] # Seg Neutrophils % Seg Neuts % (Manual) 94.0 H Lymphocytes % (Manual) 1.0 L Seg Neutrophils # Seg Neutrophils # Man 15.8 H Lymphocytes # (Manual) 0.2 L Monocytes # (Manual) PT INR APTT ABG pH ABG pO2 ABG HCO3 ABG O2 Saturation ABG Base Excess -3.2 L ABG Hemoglobin 9.0 L Oxyhemoglobin 93.6 L Sodium Potassium Chloride Carbon Dioxide BUN Creatinine Glucose POC Glucose Lactic Acid Calcium Ionized Calcium 4.5 L Phosphorus Magnesium Total Bilirubin AST ALT Alkaline Phosphatase Ammonia Total Creatine Kinase CK-MB (CK-2) CK-MB (CK-2) Rel Index Total Protein Albumin Urine WBC (Auto) Salicylates Acetaminophen Plasma/Serum Alcohol 11/23/19 11/24/19 11/24/19 06:32 04:35 04:35 WBC RBC Hgb Hct MCH RDW Plt Count Lymph % (Auto) [place] % (Auto) [place] # Seg Neutrophils % Seg Neuts % (Manual) Lymphocytes % (Manual) Seg Neutrophils # Seg Neutrophils # Man Lymphocytes # (Manual) Monocytes # (Manual) PT INR APTT ABG pH ABG pO2 ABG HCO3 ABG O2 Saturation ABG Base Excess ABG Hemoglobin Oxyhemoglobin Sodium Potassium Chloride Carbon Dioxide BUN Creatinine Glucose POC Glucose Lactic Acid 3.30 H* Calcium Ionized Calcium Phosphorus Magnesium 1.40 L Total Bilirubin AST ALT Alkaline Phosphatase Ammonia 98.0 H Total Creatine Kinase CK-MB (CK-2) CK-MB (CK-2) Rel Index Total Protein Albumin Urine WBC (Auto) Salicylates Acetaminophen Plasma/Serum Alcohol 11/24/19 11/25/19 11/25/19 05:22 04:34 05:05 WBC 17.3 H RBC 2.88 L Hgb 7.8 L Hct 24.6 L MCH 27 L RDW 18.5 H Plt Count Lymph % (Auto) 7.7 L [place] % (Auto) 9.7 H Fannin # 1.7 H Seg Neutrophils % 82.2 H Seg Neuts % (Manual) Lymphocytes % (Manual) Seg Neutrophils # 14.2 H Seg Neutrophils # Man Lymphocytes # (Manual) Monocytes # (Manual) PT INR APTT ABG pH 7.475 H ABG pO2 ABG HCO3 29.4 H 32.3 H ABG O2 Saturation ABG Base Excess 5.4 H 6.9 H ABG Hemoglobin 9.0 L 10.6 L Oxyhemoglobin 94.3 L Sodium Potassium Chloride Carbon Dioxide BUN Creatinine Glucose POC Glucose Lactic Acid Calcium Ionized Calcium Phosphorus Magnesium Total Bilirubin AST ALT Alkaline Phosphatase Ammonia Total Creatine Kinase CK-MB (CK-2) CK-MB (CK-2) Rel Index Total Protein Albumin Urine WBC (Auto) Salicylates Acetaminophen Plasma/Serum Alcohol 11/25/19 11/25/19 11/26/19 05:05 22:46 03:31 WBC RBC Hgb Hct MCH RDW Plt Count Lymph % (Auto) [place] % (Auto) [place] # Seg Neutrophils % Seg Neuts % (Manual) Lymphocytes % (Manual) Seg Neutrophils # Seg Neutrophils # Man Lymphocytes # (Manual) Monocytes # (Manual) PT INR APTT ABG pH 7.459 H ABG pO2 ABG HCO3 34.2 H ABG O2 Saturation ABG Base Excess 9.4 H ABG Hemoglobin 7.6 L Oxyhemoglobin 94.8 L Sodium 152 H D 147 H Potassium 2.3 L* D 2.8 L* D Chloride 107.8 H Carbon Dioxide 31 H D 33 H BUN Creatinine 0.6 L 0.6 L Glucose 148 H 177 H POC Glucose Lactic Acid Calcium Ionized Calcium Phosphorus Magnesium Total Bilirubin AST 105 H ALT 71 H Alkaline Phosphatase 155 H Ammonia Total Creatine Kinase CK-MB (CK-2) CK-MB (CK-2) Rel Index Total Protein 5.2 L D Albumin 2.9 L Urine WBC (Auto) Salicylates Acetaminophen Plasma/Serum Alcohol 11/26/19 11/26/19 11/27/19 08:24 08:24 04:20 WBC 12.0 H RBC 3.00 L Hgb 8.0 L 9.3 L Hct 25.9 L 29.7 L MCH 27 L RDW 18.5 H Plt Count Lymph % (Auto) [place] % (Auto) [place] # Seg Neutrophils % Seg Neuts % (Manual) 89.0 H Lymphocytes % (Manual) 4.0 L Seg Neutrophils # Seg Neutrophils # Man 10.7 H Lymphocytes # (Manual) 0.5 L Monocytes # (Manual) PT INR APTT ABG pH ABG pO2 ABG HCO3 ABG O2 Saturation ABG Base Excess ABG Hemoglobin Oxyhemoglobin Sodium 146 H Potassium 3.4 L D Chloride Carbon Dioxide BUN Creatinine 0.5 L Glucose 165 H POC Glucose Lactic Acid Calcium Ionized Calcium Phosphorus Magnesium Total Bilirubin AST 57 H ALT Alkaline Phosphatase 166 H Ammonia Total Creatine Kinase CK-MB (CK-2) CK-MB (CK-2) Rel Index Total Protein Albumin 2.9 L Urine WBC (Auto) Salicylates Acetaminophen Plasma/Serum Alcohol 11/27/19 11/27/19 11/27/19 04:28 04:28 04:42 WBC RBC Hgb Hct MCH RDW Plt Count Lymph % (Auto) [place] % (Auto) [place] # Seg Neutrophils % Seg Neuts % (Manual) Lymphocytes % (Manual) Seg Neutrophils # Seg Neutrophils # Man Lymphocytes # (Manual) Monocytes # (Manual) PT INR APTT ABG pH 7.470 H ABG pO2 74.0 L ABG HCO3 33.8 H ABG O2 Saturation ABG Base Excess 9.1 H ABG Hemoglobin 8.7 L Oxyhemoglobin 94.7 L Sodium 146 H Potassium 2.9 L* Chloride Carbon Dioxide BUN 25 H Creatinine Glucose 213 H POC Glucose Lactic Acid Calcium Ionized Calcium Phosphorus 1.00 L Magnesium Total Bilirubin AST ALT Alkaline Phosphatase Ammonia Total Creatine Kinase CK-MB (CK-2) CK-MB (CK-2) Rel Index Total Protein Albumin Urine WBC (Auto) Salicylates Acetaminophen Plasma/Serum Alcohol 11/27/19 11/27/19 11/27/19 05:37 12:20 15:46 WBC RBC Hgb Hct MCH RDW Plt Count Lymph % (Auto) [place] % (Auto) [place] # Seg Neutrophils % Seg Neuts % (Manual) Lymphocytes % (Manual) Seg Neutrophils # Seg Neutrophils # Man Lymphocytes # (Manual) Monocytes # (Manual) PT INR APTT ABG pH ABG pO2 ABG HCO3 ABG O2 Saturation ABG Base Excess ABG Hemoglobin Oxyhemoglobin Sodium 146 H Potassium 3.5 L D Chloride Carbon Dioxide BUN 24 H Creatinine 0.6 L Glucose 187 H POC Glucose 117 H 220 H Lactic Acid Calcium Ionized Calcium Phosphorus Magnesium Total Bilirubin AST ALT Alkaline Phosphatase Ammonia Total Creatine Kinase CK-MB (CK-2) CK-MB (CK-2) Rel Index Total Protein Albumin Urine WBC (Auto) Salicylates Acetaminophen Plasma/Serum Alcohol 11/27/19 11/28/19 11/28/19 17:28 05:00 05:02 WBC RBC Hgb Hct MCH RDW Plt Count Lymph % (Auto) [place] % (Auto) [place] # Seg Neutrophils % Seg Neuts % (Manual) Lymphocytes % (Manual) Seg Neutrophils # Seg Neutrophils # Man Lymphocytes # (Manual) Monocytes # (Manual) PT INR APTT ABG pH ABG pO2 72.4 L ABG HCO3 33.6 H ABG O2 Saturation 94.1 L ABG Base Excess 7.3 H ABG Hemoglobin Oxyhemoglobin 91.8 L Sodium 146 H Potassium 3.3 L Chloride Carbon Dioxide BUN 25 H Creatinine 0.6 L Glucose 176 H POC Glucose 198 H Lactic Acid Calcium Ionized Calcium Phosphorus Magnesium Total Bilirubin AST ALT Alkaline Phosphatase Ammonia Total Creatine Kinase CK-MB (CK-2) CK-MB (CK-2) Rel Index Total Protein Albumin Urine WBC (Auto) Salicylates Acetaminophen Plasma/Serum Alcohol 11/28/19 05:02 WBC 15.2 H RBC 3.06 L Hgb 8.3 L Hct 27.0 L MCH 27 L RDW 19.0 H Plt Count 479 H Lymph % (Auto) [place] % (Auto) [place] # Seg Neutrophils % Seg Neuts % (Manual) 92.0 H Lymphocytes % (Manual) 2.0 L Seg Neutrophils # Seg Neutrophils # Man 14.0 H Lymphocytes # (Manual) 0.3 L Monocytes # (Manual) PT INR APTT ABG pH ABG pO2 ABG HCO3 ABG O2 Saturation ABG Base Excess ABG Hemoglobin Oxyhemoglobin Sodium Potassium Chloride Carbon Dioxide BUN Creatinine Glucose POC Glucose Lactic Acid Calcium Ionized Calcium Phosphorus Magnesium Total Bilirubin AST ALT Alkaline Phosphatase Ammonia Total Creatine Kinase CK-MB (CK-2) CK-MB (CK-2) Rel Index Total Protein Albumin Urine WBC (Auto) Salicylates Acetaminophen Plasma/Serum Alcohol Chest x-ray: image reviewed (ETT in position, no acute pulmonary infiltrates) Additional Studies: Cultures: 11/22/2019 urine culture:no significant growth 11/22/2019 tracheal aspirate culture: H. influenzae 11/23/2019 blood culture: No growth Allied health notes reviewed: RT
[2019-11-28] MEDS ORDERED: POTASSIUM CHLORIDE ER 20 MEQ TAB PO ONE (10:00)
--- NOTE | 2019-11-28 11:56 | Progress Note ---
Assessment and Plan Cultures: 11/22/2019 urine culture:no significant growth 11/22/2019 tracheal aspirate culture: H. influenzae 11/23/2019 blood culture: No growth A/P: 54-year-old female with hypertension, depression, tobacco use, alcohol abuse was brought into the emergency room on 11/22/2019 after she went into respiratory arrest at home requiring CPR by EMS: #Sepsis: Source could be UTI versus pneumonitis versus SBP. UA showed pyuria. RUQ US showed no ascites. #Pneumonitis, acute respiratory failure: Possibly aspiration. No dense pneumonia seen. On mechanical ventilation. #Elevated LFTs, alcohol abuse, status post arrest requiring CPR: Trend LFTs. Also recommend abdominal ultrasound. #Acute encephalopathy: Likely multifactorial from alcohol abuse, status post arrest, electrolyte abnormalities. #Diarrhea: likely combination of tube feeds and lactulose. Recs: Continue IV ceftriaxone 2 g daily overall day 6 of abx therapy, tentatively plan to stop after 7 days Isaías Aaron MD, FACP [facility] ([facility]) C: [phone] O: [phone] F: [phone] Subjective Date of service: 11/28/19 Principal diagnosis: Anoxic brain injury Interval history: No fever. But remains unresponsive, on the vent. Not following any commands. Discussed with RN. Objective - Exam Narrative Exam: Physical Exam: Constitutional: eyes open, intubated Head, Ears, Nose: Normocephalic, atraumatic. External ears, nose normal Eyes: Conjunctivae/corneas clear. No icterus. No ptosis. Neck: intubated Oral: intubated Cardiovascular: S1, S2 normal Respiratory: Good air entry, clear to auscultation bilaterally GI: slightly distended, bowel sounds present. Rectal tube present with liquid stool Musculoskeletal: No pedal edema, no cyanosis. Skin: No rash or abscess Hem/Lymphatic: No palpable cervical or supraclavicular nodes. No lymphangitis Psych: no agitation. Neurological: eyes open, not following commands, intubated, on vent - Constitutional Vitals: Vital Signs Temp Pulse Resp BP Pulse Ox 97.6 F 90 16 131/83 98 11/28/19 08:00 11/28/19 11:32 11/28/19 11:30 11/28/19 11:32 11/28/19 11:32 Temperature -Last 24 Hours Temperature 97.6 F Temperature 99.0 F Temperature 99.4 F Temperature 99.4 F Temperature 99.7 F Temperature 98.3 F Temperature 99.0 F - Labs CBC & Chem 7: 11/28/19 05:02 11/28/19 05:02 Labs: Abnormal lab results 11/27/19 11/27/19 11/27/19 Range/Units 12:20 15:46 17:28 WBC (4.5-11.0) K/mm3 RBC (3.65-5.03) M/mm3 Hgb (10.1-14.3) gm/dl Hct (30.3-42.9) % MCH (28-32) pg RDW (13.2-15.2) % Plt Count (140-440) K/mm3 Seg Neuts % (Manual) (40.0-70.0) % Lymphocytes % (Manual) (13.4-35.0) % Seg Neutrophils # Man (1.8-7.7) K/mm3 Lymphocytes # (Manual) (1.2-5.4) K/mm3 ABG pO2 (80.0-90.0) mm Hg ABG HCO3 (20.0-26.0) mmol/L ABG O2 Saturation (95.0-99.0) % ABG Base Excess (-2.0-3.0) mmol/L Oxyhemoglobin (95.0-99.0) % Sodium 146 H (137-145) mmol/L Potassium 3.5 L D (3.6-5.0) mmol/L BUN 24 H (7-17) mg/dL Creatinine 0.6 L (0.7-1.2) mg/dL Glucose 187 H (65-100) mg/dL POC Glucose 220 H 198 H (70-105) 11/28/19 11/28/19 11/28/19 Range/Units 05:00 05:02 05:02 WBC 15.2 H (4.5-11.0) K/mm3 RBC 3.06 L (3.65-5.03) M/mm3 Hgb 8.3 L (10.1-14.3) gm/dl Hct 27.0 L (30.3-42.9) % MCH 27 L (28-32) pg RDW 19.0 H (13.2-15.2) % Plt Count 479 H (140-440) K/mm3 Seg Neuts % (Manual) 92.0 H (40.0-70.0) % Lymphocytes % (Manual) 2.0 L (13.4-35.0) % Seg Neutrophils # Man 14.0 H (1.8-7.7) K/mm3 Lymphocytes # (Manual) 0.3 L (1.2-5.4) K/mm3 ABG pO2 72.4 L (80.0-90.0) mm Hg ABG HCO3 33.6 H (20.0-26.0) mmol/L ABG O2 Saturation 94.1 L (95.0-99.0) % ABG Base Excess 7.3 H (-2.0-3.0) mmol/L Oxyhemoglobin 91.8 L (95.0-99.0) % Sodium 146 H (137-145) mmol/L Potassium 3.3 L (3.6-5.0) mmol/L BUN 25 H (7-17) mg/dL Creatinine 0.6 L (0.7-1.2) mg/dL Glucose 176 H (65-100) mg/dL POC Glucose (70-105)
[2019-11-28] MEDS: cefTRIAXone/NS 2 GM/100 ML 2 GM/100 ML BAG IV SCH (13:34)
--- NOTE | 2019-11-28 13:41 | Progress Note ---
Assessment and Plan / Anoxic brain injury: suspected CT head: No acute abnormality. neurology consult placed, EEG ordered showed Generalized slowing. No seizures or epileptiform activity. Per neurology : Patient found to have intact corneal/VOR/cough reflexes, and is withdrawing and lower extremities, therefore patient is not found to be brain . However, given that patient had an out of hospital cardiac arrest, the time of which is uncertain, the likelihood of meaningful neurological recovery is somewhat low. /Acute Respiratory Arrest -Patient is intubated and on mechanical ventilation - CTA was done and negative for PE, heparin GTT discontinued - Echo quality is poor, showed diastolic dysfunction - continue ICU monitoring -Patient move her extremities and open her eyes when sedation is decreased /Hyperammonemia - likely from liver disease related to EtOH abuse - Patient has elevated ammonia level and on lactulose /Metabolic Acidosis -Alcohol ketoacidosis vs hypoprofusion - IVF -Continue to monitor /ELevated LFTs - ischemic hepatitis. could worsen - monitor LFTs /Leucocytosis with sepsis - Source could be UTI versus pneumonitis versus SBP. UA showed pyuria. RUQ US showed no ascites. - tracheal aspirate grew H. influenza - hemodynamically stable, ID following - Continue IV ceftriaxone 2 g daily overall day 6 of abx therapy, tentatively plan to stop after 7 days /ALcohol USe Disorder - given ongoing Alcohol use,almost daily, IV Thiamine for now - monitor /Severe hypokalemia -Repleted -We will follow magnesium and potassium level FUll code The high probability of a clinically significant, sudden or life threatening deterioration of the [neurology,respiratory] system(s) required my full and direct attention, intervention and personal management. The aggregate critical care time was [32] minutes. This time is in addition to time spent performing reported procedures but includes the following: [x] Data Review and interpretation [x] Patient assessment and monitoring of vital signs [x] Documentation [x] Medication orders and management Disposition: prognosis poor. family meeting tomorrow to discuss further goal of care. Brief History: 54-year-old female with a past medical history of Hypertension, Depression, Tobacco use Disorder, Alcohol use Disorder as confirmed by Daughter and pt's mother presents to the hospital status post cardiac arrest at home. EMS found pt in [facility]. They were unable to intubate patient with a ET tube because she was clenching down therefore Joe airway placed. Per the ED physician who evaluated pt, Patient presented with a pulse, intermittent respirations, and bagging support via Joe airway with O2 sat of 100%. Accu-Chek of 71 obtained by EMS. She was intubated in the ER and called for admission. Subjective Date of service: 11/28/19 Principal diagnosis: Anoxic brain injury Interval history: Patient seen and examined remained intubated, unresponsive, no clinical change discuss with neuro - family meeting at noon tomorrow Objective - Exam Narrative Exam: General appearance: Present: other (on vent comatose, elderly female) - EENT Eyes: no scleral icterus, no conjunctival injection, pupil not reactive ENT: clear oral mucosa, dentition normal, no oropharyngeal erythema Ears: bilateral: normal - Neck Neck: supple, normal ROM - Respiratory Respiratory effort: other (on vent) Respiratory: bilateral: rales - Cardiovascular Rhythm: regular Heart Sounds: Present: S1 & S2. Absent: gallop, rub Extremities: pulses intact, No edema, normal color - Gastrointestinal General gastrointestinal: Present: soft, non-tender, non-distended, normal bowel sounds - Integumentary Integumentary: clear, warm, dry - Musculoskeletal Musculoskeletal: does not respond to commend - Neurologic Neurologic: other (intubated and 2+ reflexes throughout) - Psychiatric Psychiatric: no appropriate mood/affect, no intact judgment & insight, no memory intact - Constitutional Vitals: Vital Signs - 12hr 11/28/19 11/28/19 11/28/19 02:00 02:30 03:00 Temperature Pulse Rate 79 76 67 Respiratory 16 16 16 Rate Blood Pressure 133/86 133/87 144/90 O2 Sat by Pulse 95 96 97 Oximetry 11/28/19 11/28/19 11/28/19 03:30 03:41 04:00 Temperature 99.0 F Pulse Rate 65 62 Respiratory 16 16 Rate Blood Pressure 154/92 155/94 O2 Sat by Pulse 97 98 Oximetry 11/28/19 11/28/19 11/28/19 04:03 04:30 05:00 Temperature Pulse Rate 65 90 70 Respiratory 13 16 Rate Blood Pressure 155/94 152/108 139/85 O2 Sat by Pulse 98 94 97 Oximetry 11/28/19 11/28/19 11/28/19 05:30 06:00 06:30 Temperature Pulse Rate 65 60 64 Respiratory 16 16 16 Rate Blood Pressure 147/88 153/84 159/90 O2 Sat by Pulse 98 98 98 Oximetry 11/28/19 11/28/19 11/28/19 07:00 07:30 08:00 Temperature 97.6 F Pulse Rate 61 73 59 L Respiratory 17 15 16 Rate Blood Pressure 162/92 159/110 154/97 O2 Sat by Pulse 99 99 98 Oximetry 11/28/19 11/28/19 11/28/19 08:30 08:56 09:00 Temperature Pulse Rate 54 L 56 L 60 Respiratory 16 15 Rate Blood Pressure 161/93 161/93 154/89 O2 Sat by Pulse 99 98 Oximetry 11/28/19 11/28/19 11/28/19 09:30 10:00 10:30 Temperature Pulse Rate 76 100 H 111 H Respiratory 16 17 28 H Rate Blood Pressure 133/85 125/79 129/79 O2 Sat by Pulse 97 96 87 Oximetry 11/28/19 11/28/19 11/28/19 11:00 11:30 11:32 Temperature Pulse Rate 99 H 91 H 90 Respiratory 17 16 Rate Blood Pressure 105/70 131/83 131/83 O2 Sat by Pulse 99 98 Oximetry 11/28/19 11/28/19 11/28/19 12:00 12:30 13:00 Temperature 98.0 F Pulse Rate 87 83 79 Respiratory 16 16 16 Rate Blood Pressure 150/90 142/92 142/92 O2 Sat by Pulse 87 Oximetry - Labs CBC & Chem 7: 11/28/19 05:02 11/28/19 05:02 Labs: Abnormal lab results 11/27/19 11/27/19 11/28/19 Range/Units 15:46 17:28 05:00 WBC (4.5-11.0) K/mm3 RBC (3.65-5.03) M/mm3 Hgb (10.1-14.3) gm/dl Hct (30.3-42.9) % MCH (28-32) pg RDW (13.2-15.2) % Plt Count (140-440) K/mm3 Seg Neuts % (Manual) (40.0-70.0) % Lymphocytes % (Manual) (13.4-35.0) % Seg Neutrophils # Man (1.8-7.7) K/mm3 Lymphocytes # (Manual) (1.2-5.4) K/mm3 ABG pO2 72.4 L (80.0-90.0) mm Hg ABG HCO3 33.6 H (20.0-26.0) mmol/L ABG O2 Saturation 94.1 L (95.0-99.0) % ABG Base Excess 7.3 H (-2.0-3.0) mmol/L Oxyhemoglobin 91.8 L (95.0-99.0) % Sodium 146 H (137-145) mmol/L Potassium 3.5 L D (3.6-5.0) mmol/L BUN 24 H (7-17) mg/dL Creatinine 0.6 L (0.7-1.2) mg/dL Glucose 187 H (65-100) mg/dL POC Glucose 198 H (70-105) 11/28/19 11/28/19 Range/Units 05:02 05:02 WBC 15.2 H (4.5-11.0) K/mm3 RBC 3.06 L (3.65-5.03) M/mm3 Hgb 8.3 L (10.1-14.3) gm/dl Hct 27.0 L (30.3-42.9) % MCH 27 L (28-32) pg RDW 19.0 H (13.2-15.2) % Plt Count 479 H (140-440) K/mm3 Seg Neuts % (Manual) 92.0 H (40.0-70.0) % Lymphocytes % (Manual) 2.0 L (13.4-35.0) % Seg Neutrophils # Man 14.0 H (1.8-7.7) K/mm3 Lymphocytes # (Manual) 0.3 L (1.2-5.4) K/mm3 ABG pO2 (80.0-90.0) mm Hg ABG HCO3 (20.0-26.0) mmol/L ABG O2 Saturation (95.0-99.0) % ABG Base Excess (-2.0-3.0) mmol/L Oxyhemoglobin (95.0-99.0) % Sodium 146 H (137-145) mmol/L Potassium 3.3 L (3.6-5.0) mmol/L BUN 25 H (7-17) mg/dL Creatinine 0.6 L (0.7-1.2) mg/dL Glucose 176 H (65-100) mg/dL POC Glucose (70-105)
--- NOTE | 2019-11-28 14:02 | Progress Note ---
Assessment and Plan Patient is a 54-year-old woman with a history of hypertension, depression, alcohol abuse, who presented with cardiac arrest. According patient's clinical findings, it is likely that she has had anoxic brain injury secondary to cardiac arrest. Plan: 1. Anoxic brain injury: CT head: No acute abnormality. -EEG: Generalized slowing. No seizures or epileptiform activity. Patient found to have intact corneal/VOR/cough reflexes, and is withdrawing and lower extremities, therefore patient is not found to be brain . However, given that patient had an out of hospital cardiac arrest, the time of which is uncertain, the likelihood of meaningful neurological recovery is somewhat low. -Discussed prognosis with patient's mother. Plan for family meeting tomorrow, per mother. - Cont. keppra 500mg BID for seizure prophylaxis. -Continue supportive care per primary team. -We will continue to monitor neurologic status. Patient will require further examination once sedation is completely held. Thank you for allowing me to take part in the care of this patient. Oliver Randhawa MD Neurology Subjective Date of service: 11/28/19 Principal diagnosis: Anoxic brain injury Interval history: No acute events overnight. Objective - Exam Narrative Exam: Patient is intubated, and comatose. Pupils bilaterally 3 mm and reactive to light. Intact corneal/VOR/cough reflexes. Withdraws bilaterally in lower extremities but not upper extremities. 2+ reflexes throughout. - Vital Sign Vital Signs - 12hr 11/28/19 11/28/19 11/28/19 02:00 02:30 03:00 Temperature Pulse Rate 79 76 67 Respiratory 16 16 16 Rate Blood Pressure 133/86 133/87 144/90 O2 Sat by Pulse 95 96 97 Oximetry 11/28/19 11/28/19 11/28/19 03:30 03:41 04:00 Temperature 99.0 F Pulse Rate 65 62 Respiratory 16 16 Rate Blood Pressure 154/92 155/94 O2 Sat by Pulse 97 98 Oximetry 11/28/19 11/28/19 11/28/19 04:03 04:30 05:00 Temperature Pulse Rate 65 90 70 Respiratory 13 16 Rate Blood Pressure 155/94 152/108 139/85 O2 Sat by Pulse 98 94 97 Oximetry 11/28/19 11/28/19 11/28/19 05:30 06:00 06:30 Temperature Pulse Rate 65 60 64 Respiratory 16 16 16 Rate Blood Pressure 147/88 153/84 159/90 O2 Sat by Pulse 98 98 98 Oximetry 11/28/19 11/28/19 11/28/19 07:00 07:30 08:00 Temperature 97.6 F Pulse Rate 61 73 59 L Respiratory 17 15 16 Rate Blood Pressure 162/92 159/110 154/97 O2 Sat by Pulse 99 99 98 Oximetry 11/28/19 11/28/19 11/28/19 08:30 08:56 09:00 Temperature Pulse Rate 54 L 56 L 60 Respiratory 16 15 Rate Blood Pressure 161/93 161/93 154/89 O2 Sat by Pulse 99 98 Oximetry 11/28/19 11/28/19 11/28/19 09:30 10:00 10:30 Temperature Pulse Rate 76 100 H 111 H Respiratory 16 17 28 H Rate Blood Pressure 133/85 125/79 129/79 O2 Sat by Pulse 97 96 87 Oximetry 11/28/19 11/28/19 11/28/19 11:00 11:30 11:32 Temperature Pulse Rate 99 H 91 H 90 Respiratory 17 16 Rate Blood Pressure 105/70 131/83 131/83 O2 Sat by Pulse 99 98 Oximetry 11/28/19 11/28/19 11/28/19 12:00 12:30 13:00 Temperature 98.0 F Pulse Rate 87 83 79 Respiratory 16 16 16 Rate Blood Pressure 150/90 142/92 142/92 O2 Sat by Pulse 87 Oximetry - General Apperance Constitutional: acutely ill - EENT EENT: ATNC, PERRL, mucous membranes moist - Respiratory Respiratory: decreased breath sounds - Cardiovascular Cardiovascular: regular rate, normal S1, normal S2 Extremities: no clubbing, cyanosis, no inflammation - Gastrointestinal Gastrointestinal: normoactive bowel sounds, soft, non-tender - Laboratory Findings CBC and BMP: 11/28/19 05:02 11/28/19 05:02 Abnormal Lab Findings: Abnormal Labs 11/22/19 11/22/19 11/22/19 23:17 23:18 23:27 WBC 21.2 H RBC 3.59 L Hgb 9.8 L Hct MCH 27 L RDW 18.6 H Plt Count 454 H Lymph % (Auto) Mcnairy % (Auto) Mcnairy # Seg Neutrophils % Seg Neuts % (Manual) 86.0 H Lymphocytes % (Manual) 9.0 L Seg Neutrophils # Seg Neutrophils # Man 18.2 H Lymphocytes # (Manual) Monocytes # (Manual) 1.1 H PT INR APTT ABG pH ABG pO2 ABG HCO3 ABG O2 Saturation ABG Base Excess ABG Hemoglobin Oxyhemoglobin Sodium Potassium Chloride Carbon Dioxide BUN Creatinine Glucose POC Glucose 53 L Lactic Acid Calcium Ionized Calcium Phosphorus Magnesium Total Bilirubin AST ALT Alkaline Phosphatase Ammonia Total Creatine Kinase CK-MB (CK-2) CK-MB (CK-2) Rel Index Total Protein Albumin Urine WBC (Auto) 40.0 H Salicylates Acetaminophen Plasma/Serum Alcohol 11/22/19 11/22/19 11/22/19 23:27 23:27 23:27 WBC RBC Hgb Hct MCH RDW Plt Count Lymph % (Auto) Mcnairy % (Auto) Mcnairy # Seg Neutrophils % Seg Neuts % (Manual) Lymphocytes % (Manual) Seg Neutrophils # Seg Neutrophils # Man Lymphocytes # (Manual) Monocytes # (Manual) PT INR APTT ABG pH ABG pO2 ABG HCO3 ABG O2 Saturation ABG Base Excess ABG Hemoglobin Oxyhemoglobin Sodium Potassium 2.4 L* Chloride 85.1 L Carbon Dioxide 19 L BUN Creatinine 0.5 L Glucose 261 H POC Glucose Lactic Acid Calcium Ionized Calcium Phosphorus Magnesium Total Bilirubin AST 609 H ALT 152 H Alkaline Phosphatase 160 H Ammonia 117.0 H Total Creatine Kinase 139 H CK-MB (CK-2) 8.3 H CK-MB (CK-2) Rel Index 5.9 H Total Protein Albumin 3.6 L Urine WBC (Auto) Salicylates < 0.3 L Acetaminophen Plasma/Serum Alcohol 11/22/19 11/22/19 11/23/19 23:27 23:27 01:10 WBC RBC Hgb Hct MCH RDW Plt Count Lymph % (Auto) Mcnairy % (Auto) Mcnairy # Seg Neutrophils % Seg Neuts % (Manual) Lymphocytes % (Manual) Seg Neutrophils # Seg Neutrophils # Man Lymphocytes # (Manual) Monocytes # (Manual) PT INR APTT ABG pH 7.273 L ABG pO2 209.7 H ABG HCO3 ABG O2 Saturation 99.2 H ABG Base Excess -3.9 L ABG Hemoglobin 10.6 L Oxyhemoglobin 93.9 L Sodium Potassium Chloride Carbon Dioxide BUN Creatinine Glucose POC Glucose Lactic Acid Calcium Ionized Calcium Phosphorus Magnesium Total Bilirubin AST ALT Alkaline Phosphatase Ammonia Total Creatine Kinase CK-MB (CK-2) CK-MB (CK-2) Rel Index Total Protein Albumin Urine WBC (Auto) Salicylates Acetaminophen < 5.0 L Plasma/Serum Alcohol 0.08 H 11/23/19 11/23/19 11/23/19 01:19 01:19 03:47 WBC RBC Hgb Hct MCH RDW Plt Count Lymph % (Auto) Mcnairy % (Auto) Mcnairy # Seg Neutrophils % Seg Neuts % (Manual) Lymphocytes % (Manual) Seg Neutrophils # Seg Neutrophils # Man Lymphocytes # (Manual) Monocytes # (Manual) PT 16.3 H INR 1.29 H APTT ABG pH ABG pO2 ABG HCO3 ABG O2 Saturation ABG Base Excess ABG Hemoglobin Oxyhemoglobin Sodium Potassium Chloride Carbon Dioxide BUN Creatinine Glucose POC Glucose Lactic Acid 2.10 H* 5.00 H* Calcium Ionized Calcium Phosphorus Magnesium Total Bilirubin AST ALT Alkaline Phosphatase Ammonia Total Creatine Kinase CK-MB (CK-2) CK-MB (CK-2) Rel Index Total Protein Albumin Urine WBC (Auto) Salicylates Acetaminophen Plasma/Serum Alcohol 11/23/19 11/23/19 11/23/19 03:47 03:47 04:53 WBC RBC Hgb 9.4 L Hct MCH RDW Plt Count Lymph % (Auto) Mcnairy % (Auto) Mcnairy # Seg Neutrophils % Seg Neuts % (Manual) Lymphocytes % (Manual) Seg Neutrophils # Seg Neutrophils # Man Lymphocytes # (Manual) Monocytes # (Manual) PT 17.0 H INR 1.36 H APTT 128.2 H* ABG pH ABG pO2 ABG HCO3 ABG O2 Saturation ABG Base Excess ABG Hemoglobin Oxyhemoglobin Sodium Potassium Chloride Carbon Dioxide 18 L BUN Creatinine 0.5 L Glucose 105 H POC Glucose Lactic Acid Calcium 8.3 L Ionized Calcium Phosphorus 2.40 L Magnesium Total Bilirubin 1.30 H AST 761 H ALT 158 H Alkaline Phosphatase 143 H Ammonia Total Creatine Kinase CK-MB (CK-2) CK-MB (CK-2) Rel Index Total Protein Albumin 2.8 L Urine WBC (Auto) Salicylates Acetaminophen Plasma/Serum Alcohol 11/23/19 11/23/19 11/23/19 05:12 06:32 06:32 WBC 16.8 H RBC 3.31 L Hgb 8.9 L Hct 28.7 L MCH 27 L RDW 18.6 H Plt Count Lymph % (Auto) Mcnairy % (Auto) Mcnairy # Seg Neutrophils % Seg Neuts % (Manual) 94.0 H Lymphocytes % (Manual) 1.0 L Seg Neutrophils # Seg Neutrophils # Man 15.8 H Lymphocytes # (Manual) 0.2 L Monocytes # (Manual) PT INR APTT ABG pH ABG pO2 ABG HCO3 ABG O2 Saturation ABG Base Excess -3.2 L ABG Hemoglobin 9.0 L Oxyhemoglobin 93.6 L Sodium Potassium Chloride Carbon Dioxide BUN Creatinine Glucose POC Glucose Lactic Acid Calcium Ionized Calcium 4.5 L Phosphorus Magnesium Total Bilirubin AST ALT Alkaline Phosphatase Ammonia Total Creatine Kinase CK-MB (CK-2) CK-MB (CK-2) Rel Index Total Protein Albumin Urine WBC (Auto) Salicylates Acetaminophen Plasma/Serum Alcohol 11/23/19 11/24/19 11/24/19 06:32 04:35 04:35 WBC RBC Hgb Hct MCH RDW Plt Count Lymph % (Auto) Mcnairy % (Auto) Mcnairy # Seg Neutrophils % Seg Neuts % (Manual) Lymphocytes % (Manual) Seg Neutrophils # Seg Neutrophils # Man Lymphocytes # (Manual) Monocytes # (Manual) PT INR APTT ABG pH ABG pO2 ABG HCO3 ABG O2 Saturation ABG Base Excess ABG Hemoglobin Oxyhemoglobin Sodium Potassium Chloride Carbon Dioxide BUN Creatinine Glucose POC Glucose Lactic Acid 3.30 H* Calcium Ionized Calcium Phosphorus Magnesium 1.40 L Total Bilirubin AST ALT Alkaline Phosphatase Ammonia 98.0 H Total Creatine Kinase CK-MB (CK-2) CK-MB (CK-2) Rel Index Total Protein Albumin Urine WBC (Auto) Salicylates Acetaminophen Plasma/Serum Alcohol 11/24/19 11/25/19 11/25/19 05:22 04:34 05:05 WBC 17.3 H RBC 2.88 L Hgb 7.8 L Hct 24.6 L MCH 27 L RDW 18.5 H Plt Count Lymph % (Auto) 7.7 L Mcnairy % (Auto) 9.7 H Mcnairy # 1.7 H Seg Neutrophils % 82.2 H Seg Neuts % (Manual) Lymphocytes % (Manual) Seg Neutrophils # 14.2 H Seg Neutrophils # Man Lymphocytes # (Manual) Monocytes # (Manual) PT INR APTT ABG pH 7.475 H ABG pO2 ABG HCO3 29.4 H 32.3 H ABG O2 Saturation ABG Base Excess 5.4 H 6.9 H ABG Hemoglobin 9.0 L 10.6 L Oxyhemoglobin 94.3 L Sodium Potassium Chloride Carbon Dioxide BUN Creatinine Glucose POC Glucose Lactic Acid Calcium Ionized Calcium Phosphorus Magnesium Total Bilirubin AST ALT Alkaline Phosphatase Ammonia Total Creatine Kinase CK-MB (CK-2) CK-MB (CK-2) Rel Index Total Protein Albumin Urine WBC (Auto) Salicylates Acetaminophen Plasma/Serum Alcohol 11/25/19 11/25/19 11/26/19 05:05 22:46 03:31 WBC RBC Hgb Hct MCH RDW Plt Count Lymph % (Auto) Mcnairy % (Auto) Mcnairy # Seg Neutrophils % Seg Neuts % (Manual) Lymphocytes % (Manual) Seg Neutrophils # Seg Neutrophils # Man Lymphocytes # (Manual) Monocytes # (Manual) PT INR APTT ABG pH 7.459 H ABG pO2 ABG HCO3 34.2 H ABG O2 Saturation ABG Base Excess 9.4 H ABG Hemoglobin 7.6 L Oxyhemoglobin 94.8 L Sodium 152 H D 147 H Potassium 2.3 L* D 2.8 L* D Chloride 107.8 H Carbon Dioxide 31 H D 33 H BUN Creatinine 0.6 L 0.6 L Glucose 148 H 177 H POC Glucose Lactic Acid Calcium Ionized Calcium Phosphorus Magnesium Total Bilirubin AST 105 H ALT 71 H Alkaline Phosphatase 155 H Ammonia Total Creatine Kinase CK-MB (CK-2) CK-MB (CK-2) Rel Index Total Protein 5.2 L D Albumin 2.9 L Urine WBC (Auto) Salicylates Acetaminophen Plasma/Serum Alcohol 11/26/19 11/26/19 11/27/19 08:24 08:24 04:20 WBC 12.0 H RBC 3.00 L Hgb 8.0 L 9.3 L Hct 25.9 L 29.7 L MCH 27 L RDW 18.5 H Plt Count Lymph % (Auto) Mcnairy % (Auto) Mcnairy # Seg Neutrophils % Seg Neuts % (Manual) 89.0 H Lymphocytes % (Manual) 4.0 L Seg Neutrophils # Seg Neutrophils # Man 10.7 H Lymphocytes # (Manual) 0.5 L Monocytes # (Manual) PT INR APTT ABG pH ABG pO2 ABG HCO3 ABG O2 Saturation ABG Base Excess ABG Hemoglobin Oxyhemoglobin Sodium 146 H Potassium 3.4 L D Chloride Carbon Dioxide BUN Creatinine 0.5 L Glucose 165 H POC Glucose Lactic Acid Calcium Ionized Calcium Phosphorus Magnesium Total Bilirubin AST 57 H ALT Alkaline Phosphatase 166 H Ammonia Total Creatine Kinase CK-MB (CK-2) CK-MB (CK-2) Rel Index Total Protein Albumin 2.9 L Urine WBC (Auto) Salicylates Acetaminophen Plasma/Serum Alcohol 11/27/19 11/27/19 11/27/19 04:28 04:28 04:42 WBC RBC Hgb Hct MCH RDW Plt Count Lymph % (Auto) Mcnairy % (Auto) Mcnairy # Seg Neutrophils % Seg Neuts % (Manual) Lymphocytes % (Manual) Seg Neutrophils # Seg Neutrophils # Man Lymphocytes # (Manual) Monocytes # (Manual) PT INR APTT ABG pH 7.470 H ABG pO2 74.0 L ABG HCO3 33.8 H ABG O2 Saturation ABG Base Excess 9.1 H ABG Hemoglobin 8.7 L Oxyhemoglobin 94.7 L Sodium 146 H Potassium 2.9 L* Chloride Carbon Dioxide BUN 25 H Creatinine Glucose 213 H POC Glucose Lactic Acid Calcium Ionized Calcium Phosphorus 1.00 L Magnesium Total Bilirubin AST ALT Alkaline Phosphatase Ammonia Total Creatine Kinase CK-MB (CK-2) CK-MB (CK-2) Rel Index Total Protein Albumin Urine WBC (Auto) Salicylates Acetaminophen Plasma/Serum Alcohol 11/27/19 11/27/19 11/27/19 05:37 12:20 15:46 WBC RBC Hgb Hct MCH RDW Plt Count Lymph % (Auto) Mcnairy % (Auto) Mcnairy # Seg Neutrophils % Seg Neuts % (Manual) Lymphocytes % (Manual) Seg Neutrophils # Seg Neutrophils # Man Lymphocytes # (Manual) Monocytes # (Manual) PT INR APTT ABG pH ABG pO2 ABG HCO3 ABG O2 Saturation ABG Base Excess ABG Hemoglobin Oxyhemoglobin Sodium 146 H Potassium 3.5 L D Chloride Carbon Dioxide BUN 24 H Creatinine 0.6 L Glucose 187 H POC Glucose 117 H 220 H Lactic Acid Calcium Ionized Calcium Phosphorus Magnesium Total Bilirubin AST ALT Alkaline Phosphatase Ammonia Total Creatine Kinase CK-MB (CK-2) CK-MB (CK-2) Rel Index Total Protein Albumin Urine WBC (Auto) Salicylates Acetaminophen Plasma/Serum Alcohol 11/27/19 11/28/19 11/28/19 17:28 05:00 05:02 WBC RBC Hgb Hct MCH RDW Plt Count Lymph % (Auto) Mcnairy % (Auto) Mcnairy # Seg Neutrophils % Seg Neuts % (Manual) Lymphocytes % (Manual) Seg Neutrophils # Seg Neutrophils # Man Lymphocytes # (Manual) Monocytes # (Manual) PT INR APTT ABG pH ABG pO2 72.4 L ABG HCO3 33.6 H ABG O2 Saturation 94.1 L ABG Base Excess 7.3 H ABG Hemoglobin Oxyhemoglobin 91.8 L Sodium 146 H Potassium 3.3 L Chloride Carbon Dioxide BUN 25 H Creatinine 0.6 L Glucose 176 H POC Glucose 198 H Lactic Acid Calcium Ionized Calcium Phosphorus Magnesium Total Bilirubin AST ALT Alkaline Phosphatase Ammonia Total Creatine Kinase CK-MB (CK-2) CK-MB (CK-2) Rel Index Total Protein Albumin Urine WBC (Auto) Salicylates Acetaminophen Plasma/Serum Alcohol 11/28/19 05:02 WBC 15.2 H RBC 3.06 L Hgb 8.3 L Hct 27.0 L MCH 27 L RDW 19.0 H Plt Count 479 H Lymph % (Auto) Mcnairy % (Auto) Mcnairy # Seg Neutrophils % Seg Neuts % (Manual) 92.0 H Lymphocytes % (Manual) 2.0 L Seg Neutrophils # Seg Neutrophils # Man 14.0 H Lymphocytes # (Manual) 0.3 L Monocytes # (Manual) PT INR APTT ABG pH ABG pO2 ABG HCO3 ABG O2 Saturation ABG Base Excess ABG Hemoglobin Oxyhemoglobin Sodium Potassium Chloride Carbon Dioxide BUN Creatinine Glucose POC Glucose Lactic Acid Calcium Ionized Calcium Phosphorus Magnesium Total Bilirubin AST ALT Alkaline Phosphatase Ammonia Total Creatine Kinase CK-MB (CK-2) CK-MB (CK-2) Rel Index Total Protein Albumin Urine WBC (Auto) Salicylates Acetaminophen Plasma/Serum Alcohol
[2019-11-28] MEDS ORDERED: fentaNYL 100 MCG/2 ML INJ IV PRN (15:26)
--- NOTE | 2019-11-29 04:38 | XRay Report ---
CHEST 1 VIEW INDICATION / CLINICAL INFORMATION: follow up respiratory failure. COMPARISON: 11/28/2019 FINDINGS: SUPPORT DEVICES: No interval change in the positioning of the ET tube or NG tube. The ET tube tip is approximately 6 cm from the mario.. HEART / MEDIASTINUM: No significant abnormality. LUNGS / PLEURA: No significant pulmonary or pleural abnormality. No pneumothorax. ADDITIONAL FINDINGS: No significant additional findings. IMPRESSION: 1. No acute findings. No interval change. Signer Name: Mitra Odell MD Signed: 11/29/2019 4:34 AM Workstation Name: [id number]
[2019-11-29] MEDS: LACTULOSE 20 GM/30 ML ORAL LIQD PO SCH ×4 (06:44→16:59)
[2019-11-29] MEDS: chlordiazePOXIDE 25 MG CAP PO SCH ×3 (07:45→21:20)
[2019-11-29] MEDS: HEPARIN 5,000 UNIT/1 ML VIAL SUB-Q SCH ×2 (09:49→21:20)
[2019-11-29] MEDS: levETIRAcetam 500 MG/5 ML ORAL LIQD PO SCH ×2 (09:50→21:20)
[2019-11-29] MEDS: fentaNYL DRIP Premix 2,000 MCG/100 ML BAG IV SCH (09:50)
[2019-11-29] MEDS: LANSOPRAZOLE 30 MG SOLUTAB FEEDTUBE SCH (09:50)
[2019-11-29 11:19] LABS: Hematocrit 26.4 % (30.3-42.9); Hemoglobin 8.3 gm/dl (10.1-14.3); Mean Corpuscular HGB Conc 32 % (30-34); Mean Corpuscular Volume 87 fl (79-97); Platelet Count 611 K/mm3 (140-440); Red Blood Count 3.01 M/mm3 (3.65-5.03); Red Cell Distribution Width 19.7 % (13.2-15.2)
--- NOTE | 2019-11-29 11:31 | Progress Note ---
Assessment and Plan Acute cardiopulmonary arrest with ROSC Acute hypoxemic respiratory failure on MVS Acute metabolic-toxic encephalopathy Metabolic acidosis/alcoholic acidosis/Lactic acidosis Ischemic hepatitis Leucocytosis with lactic acidosis Tobacco use disorder ALcohol use Disorder Hypokalemia High grade fevers -Aggressively replace potassium -Antibiotics de-escalated per ID to Ceftriaxone based on PAT/sensitivities -Start therapies for angioedema- benadryl, H2 blockers, steroids -Neurology consult pending, EEG pending- Neurologist will evalaute her today -Intermittent diuresis while monitoring renal function,hemodynamics and electrolyte profile -Continue CIWA protocol, in view of agitation (Had family meeting with daughter, moyther and sister in attendance; explained poor prognostic signs for neurologic recovery and likely need for trach & PEG + assistance with ADL's) - advance ETT 1-2 cm - Continue with MVS - VAP bundle addressed (continue aspiration precautions, HOB>40) - ontinue daily SAT's and assessment for readiness for SBT (For PSV trial today) - Continue Intermittent sedation until patient's neurologic state can be better evaluated - begin Seroquel for agitation / to spare IV sedatives - Continue VTE and Stress ulcer prophylaxis - Continue enteric nutritional support. Monitor glycemic control, with target blood glucose 140-180 mg/dL while critically ill (Avoid hypoglycemia) - Continue daily SAT assessment as tolerated - Continue to wean supplemental oxygen for target O2 sat's > 90% - ABG and CXR prn - continue bronchodilators with p[ulmonary hygiene per RT - Continue to trend leukocytosis and lactic acidosis - Continue to treat for hepatic encephalopathy- especially with elevated ammonia levels- lactulose - Continue thiamine, multivitamin and electrolyte replacement - Continue to avoid nephrotoxins, adjust all medications fro GFR and CrCL - Continue bronchodilators with pulmonary hygiene - Continue to avoid benzodiazepines , as much as possible, to reduce the possibi lity of delirium - Continue prn analgesia per CPOT score - Continue to maintain of sleep-wake cycle, avoid delirium - PT/OT/ROM exercises- awaiting PT/OT evaluation - Continue mobility protocol and skin assessment per protocol for pressure ulcer prevention - Continue to monitor for clinical seizures - Continue Nicotine withdrawal precautions, alcohol withdrawal precautions - continue other care per attending / other consultants ..... re-eval;uate in am & prn CONDITION: CRITICAL PROGNOSIS: GUARDED CODE STATUS: FULL CODE The high probability of a clinically significant, sudden or life-threatening deterioration of the [respiratory, cardiovascular,GI/hepatology] system(s) required my full and direct attention, intervention and personal management. The aggregate critical care time was [45] minutes without overlap. Time includes spent on; [x] Data Review and interpretation [x] Patient assessment and monitoring of vital signs [x] Documentation [x] Medication orders and management Subjective Date of service: 11/29/19 Principal diagnosis: Ac cardiopulmonary arrest; Ac hypoxemic resp failure; Acute encephalopathy Interval history: Patient is seen today for: Acute cardiopulmonary arrest with ROSC; Acute hypoxemic respiratory failure; Acute metabolic-toxic encephalopathy; Ischemic hepatitis; Leucocytosis with lactic acidosis; Tobacco use disorder; Alcohol use Disorder; Hypokalemia; High grade fevers Seen and examined at bedside; 24hour events reviewed; nursing and respiratory care staff consulted; no adverse overnight events reported to me; resting peacefully in bed; on fentanyl drip @ 1 pat/kg/hr; AMS is persistent even during sedation vacation; moves all extremities but nopt following higher commands; no emesis or overt aspiration; no seizures Objective Vital Signs - 12hr 11/28/19 11/28/19 11/28/19 23:28 23:30 23:45 Temperature 98.0 F Pulse Rate 82 81 Pulse Rate [ From Monitor] Respiratory 17 Rate Blood Pressure 123/76 136/84 O2 Sat by Pulse 99 100 Oximetry 11/29/19 11/29/19 11/29/19 00:00 00:30 01:00 Temperature Pulse Rate 78 80 84 Pulse Rate [ From Monitor] Respiratory 17 16 16 Rate Blood Pressure 132/77 128/76 114/70 O2 Sat by Pulse 100 100 98 Oximetry 11/29/19 11/29/19 11/29/19 01:30 02:00 02:30 Temperature Pulse Rate 80 82 82 Pulse Rate [ From Monitor] Respiratory 16 16 16 Rate Blood Pressure 121/75 133/82 126/79 O2 Sat by Pulse 99 99 100 Oximetry 11/29/19 11/29/19 11/29/19 03:00 03:17 03:30 Temperature Pulse Rate 82 100 H 104 H Pulse Rate [ From Monitor] Respiratory 16 13 Rate Blood Pressure 134/81 134/81 135/72 O2 Sat by Pulse 99 98 97 Oximetry 11/29/19 11/29/19 11/29/19 04:00 04:30 05:00 Temperature 97.7 F Pulse Rate 110 H 105 H 105 H Pulse Rate [ From Monitor] Respiratory 22 19 19 Rate Blood Pressure 119/82 126/86 129/91 O2 Sat by Pulse 96 95 96 Oximetry 11/29/19 11/29/19 11/29/19 05:30 06:00 06:30 Temperature Pulse Rate 98 H 111 H 112 H Pulse Rate [ From Monitor] Respiratory 21 18 12 Rate Blood Pressure 122/81 119/86 119/86 O2 Sat by Pulse 97 97 97 Oximetry 11/29/19 11/29/19 11/29/19 07:00 07:30 08:00 Temperature 98.5 F Pulse Rate 103 H 98 H 91 H Pulse Rate [ 92 H From Monitor] Respiratory 16 16 16 Rate Blood Pressure 117/79 120/77 110/70 O2 Sat by Pulse 96 97 97 Oximetry 11/29/19 11/29/19 11/29/19 08:28 08:30 09:00 Temperature Pulse Rate 92 H 92 H 96 H Pulse Rate [ From Monitor] Respiratory 19 15 Rate Blood Pressure 117/74 117/74 128/80 O2 Sat by Pulse 100 100 98 Oximetry 11/29/19 11/29/19 11/29/19 09:30 10:00 10:30 Temperature Pulse Rate 91 H 93 H 91 H Pulse Rate [ From Monitor] Respiratory 15 16 16 Rate Blood Pressure 119/74 124/77 123/77 O2 Sat by Pulse 99 98 98 Oximetry 11/29/19 11:00 Temperature Pulse Rate 90 Pulse Rate [ From Monitor] Respiratory 15 Rate Blood Pressure 126/77 O2 Sat by Pulse 99 Oximetry Constitutional: no acute distress, other (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, orally intuabted ETT at 23 cm at the lip to mVS, no dys-synchrony) Eyes: non-icteric ENT: oropharynx moist, other (ETT 23 cm AMALIA) Neck: supple, no lymphadenopathy, no JVD Effort: mildly labored Ascultation: Bilateral: diminished breath sounds, rhonchi Percussion: Bilateral: not dull Cardiovascular: regular rate and rhythm (tachycardia), other (S1,S2) Gastrointestinal: normoactive bowel sounds, soft, non-tender, non-distended Integumentary: normal Extremities: no cyanosis, no edema, pulses normal, no ischemia or petechiae Neurologic: unable to assess, other (awake but not tracking voice ) Psychiatric: other (Psychiatric: Unable to assess) CBC and BMP: 11/30/19 05:25 11/30/19 05:25 ABG, PT/INR, D-dimer: ABG ABG pH 7.408 pH Units (7.350-7.450) 11/28/19 05:00 ABG pCO2 54.4 mm Hg 11/28/19 05:00 ABG pO2 72.4 mm Hg (80.0-90.0) L 11/28/19 05:00 ABG O2 Saturation 94.1 % (95.0-99.0) L 11/28/19 05:00 PT/INR, D-dimer PT 17.0 Sec. (12.2-14.9) H 11/23/19 03:47 INR 1.36 (0.87-1.13) H 11/23/19 03:47 Abnormal lab findings: Abnormal Labs 11/22/19 11/22/19 11/22/19 23:17 23:18 23:27 WBC 21.2 H RBC 3.59 L Hgb 9.8 L Hct MCH 27 L RDW 18.6 H Plt Count 454 H Lymph % (Auto) [place] % (Auto) [place] # Seg Neutrophils % Seg Neuts % (Manual) 86.0 H Lymphocytes % (Manual) 9.0 L Seg Neutrophils # Seg Neutrophils # Man 18.2 H Lymphocytes # (Manual) Monocytes # (Manual) 1.1 H PT INR APTT ABG pH ABG pO2 ABG HCO3 ABG O2 Saturation ABG Base Excess ABG Hemoglobin Oxyhemoglobin Sodium Potassium Chloride Carbon Dioxide BUN Creatinine Glucose POC Glucose 53 L Lactic Acid Calcium Ionized Calcium Phosphorus Magnesium Total Bilirubin AST ALT Alkaline Phosphatase Ammonia Total Creatine Kinase CK-MB (CK-2) CK-MB (CK-2) Rel Index Total Protein Albumin Urine WBC (Auto) 40.0 H Salicylates Acetaminophen Plasma/Serum Alcohol 11/22/19 11/22/19 11/22/19 23:27 23:27 23:27 WBC RBC Hgb Hct MCH RDW Plt Count Lymph % (Auto) [place] % (Auto) [place] # Seg Neutrophils % Seg Neuts % (Manual) Lymphocytes % (Manual) Seg Neutrophils # Seg Neutrophils # Man Lymphocytes # (Manual) Monocytes # (Manual) PT INR APTT ABG pH ABG pO2 ABG HCO3 ABG O2 Saturation ABG Base Excess ABG Hemoglobin Oxyhemoglobin Sodium Potassium 2.4 L* Chloride 85.1 L Carbon Dioxide 19 L BUN Creatinine 0.5 L Glucose 261 H POC Glucose Lactic Acid Calcium Ionized Calcium Phosphorus Magnesium Total Bilirubin AST 609 H ALT 152 H Alkaline Phosphatase 160 H Ammonia 117.0 H Total Creatine Kinase 139 H CK-MB (CK-2) 8.3 H CK-MB (CK-2) Rel Index 5.9 H Total Protein Albumin 3.6 L Urine WBC (Auto) Salicylates < 0.3 L Acetaminophen Plasma/Serum Alcohol 11/22/19 11/22/19 11/23/19 23:27 23:27 01:10 WBC RBC Hgb Hct MCH RDW Plt Count Lymph % (Auto) [place] % (Auto) [place] # Seg Neutrophils % Seg Neuts % (Manual) Lymphocytes % (Manual) Seg Neutrophils # Seg Neutrophils # Man Lymphocytes # (Manual) Monocytes # (Manual) PT INR APTT ABG pH 7.273 L ABG pO2 209.7 H ABG HCO3 ABG O2 Saturation 99.2 H ABG Base Excess -3.9 L ABG Hemoglobin 10.6 L Oxyhemoglobin 93.9 L Sodium Potassium Chloride Carbon Dioxide BUN Creatinine Glucose POC Glucose Lactic Acid Calcium Ionized Calcium Phosphorus Magnesium Total Bilirubin AST ALT Alkaline Phosphatase Ammonia Total Creatine Kinase CK-MB (CK-2) CK-MB (CK-2) Rel Index Total Protein Albumin Urine WBC (Auto) Salicylates Acetaminophen < 5.0 L Plasma/Serum Alcohol 0.08 H 11/23/19 11/23/19 11/23/19 01:19 01:19 03:47 WBC RBC Hgb Hct MCH RDW Plt Count Lymph % (Auto) [place] % (Auto) [place] # Seg Neutrophils % Seg Neuts % (Manual) Lymphocytes % (Manual) Seg Neutrophils # Seg Neutrophils # Man Lymphocytes # (Manual) Monocytes # (Manual) PT 16.3 H INR 1.29 H APTT ABG pH ABG pO2 ABG HCO3 ABG O2 Saturation ABG Base Excess ABG Hemoglobin Oxyhemoglobin Sodium Potassium Chloride Carbon Dioxide BUN Creatinine Glucose POC Glucose Lactic Acid 2.10 H* 5.00 H* Calcium Ionized Calcium Phosphorus Magnesium Total Bilirubin AST ALT Alkaline Phosphatase Ammonia Total Creatine Kinase CK-MB (CK-2) CK-MB (CK-2) Rel Index Total Protein Albumin Urine WBC (Auto) Salicylates Acetaminophen Plasma/Serum Alcohol 11/23/19 11/23/19 11/23/19 03:47 03:47 04:53 WBC RBC Hgb 9.4 L Hct MCH RDW Plt Count Lymph % (Auto) [place] % (Auto) [place] # Seg Neutrophils % Seg Neuts % (Manual) Lymphocytes % (Manual) Seg Neutrophils # Seg Neutrophils # Man Lymphocytes # (Manual) Monocytes # (Manual) PT 17.0 H INR 1.36 H APTT 128.2 H* ABG pH ABG pO2 ABG HCO3 ABG O2 Saturation ABG Base Excess ABG Hemoglobin Oxyhemoglobin Sodium Potassium Chloride Carbon Dioxide 18 L BUN Creatinine 0.5 L Glucose 105 H POC Glucose Lactic Acid Calcium 8.3 L Ionized Calcium Phosphorus 2.40 L Magnesium Total Bilirubin 1.30 H AST 761 H ALT 158 H Alkaline Phosphatase 143 H Ammonia Total Creatine Kinase CK-MB (CK-2) CK-MB (CK-2) Rel Index Total Protein Albumin 2.8 L Urine WBC (Auto) Salicylates Acetaminophen Plasma/Serum Alcohol 11/23/19 11/23/19 11/23/19 05:12 06:32 06:32 WBC 16.8 H RBC 3.31 L Hgb 8.9 L Hct 28.7 L MCH 27 L RDW 18.6 H Plt Count Lymph % (Auto) [place] % (Auto) [place] # Seg Neutrophils % Seg Neuts % (Manual) 94.0 H Lymphocytes % (Manual) 1.0 L Seg Neutrophils # Seg Neutrophils # Man 15.8 H Lymphocytes # (Manual) 0.2 L Monocytes # (Manual) PT INR APTT ABG pH ABG pO2 ABG HCO3 ABG O2 Saturation ABG Base Excess -3.2 L ABG Hemoglobin 9.0 L Oxyhemoglobin 93.6 L Sodium Potassium Chloride Carbon Dioxide BUN Creatinine Glucose POC Glucose Lactic Acid Calcium Ionized Calcium 4.5 L Phosphorus Magnesium Total Bilirubin AST ALT Alkaline Phosphatase Ammonia Total Creatine Kinase CK-MB (CK-2) CK-MB (CK-2) Rel Index Total Protein Albumin Urine WBC (Auto) Salicylates Acetaminophen Plasma/Serum Alcohol 11/23/19 11/24/19 11/24/19 06:32 04:35 04:35 WBC RBC Hgb Hct MCH RDW Plt Count Lymph % (Auto) [place] % (Auto) [place] # Seg Neutrophils % Seg Neuts % (Manual) Lymphocytes % (Manual) Seg Neutrophils # Seg Neutrophils # Man Lymphocytes # (Manual) Monocytes # (Manual) PT INR APTT ABG pH ABG pO2 ABG HCO3 ABG O2 Saturation ABG Base Excess ABG Hemoglobin Oxyhemoglobin Sodium Potassium Chloride Carbon Dioxide BUN Creatinine Glucose POC Glucose Lactic Acid 3.30 H* Calcium Ionized Calcium Phosphorus Magnesium 1.40 L Total Bilirubin AST ALT Alkaline Phosphatase Ammonia 98.0 H Total Creatine Kinase CK-MB (CK-2) CK-MB (CK-2) Rel Index Total Protein Albumin Urine WBC (Auto) Salicylates Acetaminophen Plasma/Serum Alcohol 11/24/19 11/25/19 11/25/19 05:22 04:34 05:05 WBC 17.3 H RBC 2.88 L Hgb 7.8 L Hct 24.6 L MCH 27 L RDW 18.5 H Plt Count Lymph % (Auto) 7.7 L [place] % (Auto) 9.7 H Over[place] # 1.7 H Seg Neutrophils % 82.2 H Seg Neuts % (Manual) Lymphocytes % (Manual) Seg Neutrophils # 14.2 H Seg Neutrophils # Man Lymphocytes # (Manual) Monocytes # (Manual) PT INR APTT ABG pH 7.475 H ABG pO2 ABG HCO3 29.4 H 32.3 H ABG O2 Saturation ABG Base Excess 5.4 H 6.9 H ABG Hemoglobin 9.0 L 10.6 L Oxyhemoglobin 94.3 L Sodium Potassium Chloride Carbon Dioxide BUN Creatinine Glucose POC Glucose Lactic Acid Calcium Ionized Calcium Phosphorus Magnesium Total Bilirubin AST ALT Alkaline Phosphatase Ammonia Total Creatine Kinase CK-MB (CK-2) CK-MB (CK-2) Rel Index Total Protein Albumin Urine WBC (Auto) Salicylates Acetaminophen Plasma/Serum Alcohol 11/25/19 11/25/19 11/26/19 05:05 22:46 03:31 WBC RBC Hgb Hct MCH RDW Plt Count Lymph % (Auto) [place] % (Auto) [place] # Seg Neutrophils % Seg Neuts % (Manual) Lymphocytes % (Manual) Seg Neutrophils # Seg Neutrophils # Man Lymphocytes # (Manual) Monocytes # (Manual) PT INR APTT ABG pH 7.459 H ABG pO2 ABG HCO3 34.2 H ABG O2 Saturation ABG Base Excess 9.4 H ABG Hemoglobin 7.6 L Oxyhemoglobin 94.8 L Sodium 152 H D 147 H Potassium 2.3 L* D 2.8 L* D Chloride 107.8 H Carbon Dioxide 31 H D 33 H BUN Creatinine 0.6 L 0.6 L Glucose 148 H 177 H POC Glucose Lactic Acid Calcium Ionized Calcium Phosphorus Magnesium Total Bilirubin AST 105 H ALT 71 H Alkaline Phosphatase 155 H Ammonia Total Creatine Kinase CK-MB (CK-2) CK-MB (CK-2) Rel Index Total Protein 5.2 L D Albumin 2.9 L Urine WBC (Auto) Salicylates Acetaminophen Plasma/Serum Alcohol 11/26/19 11/26/19 11/27/19 08:24 08:24 04:20 WBC 12.0 H RBC 3.00 L Hgb 8.0 L 9.3 L Hct 25.9 L 29.7 L MCH 27 L RDW 18.5 H Plt Count Lymph % (Auto) [place] % (Auto) [place] # Seg Neutrophils % Seg Neuts % (Manual) 89.0 H Lymphocytes % (Manual) 4.0 L Seg Neutrophils # Seg Neutrophils # Man 10.7 H Lymphocytes # (Manual) 0.5 L Monocytes # (Manual) PT INR APTT ABG pH ABG pO2 ABG HCO3 ABG O2 Saturation ABG Base Excess ABG Hemoglobin Oxyhemoglobin Sodium 146 H Potassium 3.4 L D Chloride Carbon Dioxide BUN Creatinine 0.5 L Glucose 165 H POC Glucose Lactic Acid Calcium Ionized Calcium Phosphorus Magnesium Total Bilirubin AST 57 H ALT Alkaline Phosphatase 166 H Ammonia Total Creatine Kinase CK-MB (CK-2) CK-MB (CK-2) Rel Index Total Protein Albumin 2.9 L Urine WBC (Auto) Salicylates Acetaminophen Plasma/Serum Alcohol 11/27/19 11/27/19 11/27/19 04:28 04:28 04:42 WBC RBC Hgb Hct MCH RDW Plt Count Lymph % (Auto) [place] % (Auto) [place] # Seg Neutrophils % Seg Neuts % (Manual) Lymphocytes % (Manual) Seg Neutrophils # Seg Neutrophils # Man Lymphocytes # (Manual) Monocytes # (Manual) PT INR APTT ABG pH 7.470 H ABG pO2 74.0 L ABG HCO3 33.8 H ABG O2 Saturation ABG Base Excess 9.1 H ABG Hemoglobin 8.7 L Oxyhemoglobin 94.7 L Sodium 146 H Potassium 2.9 L* Chloride Carbon Dioxide BUN 25 H Creatinine Glucose 213 H POC Glucose Lactic Acid Calcium Ionized Calcium Phosphorus 1.00 L Magnesium Total Bilirubin AST ALT Alkaline Phosphatase Ammonia Total Creatine Kinase CK-MB (CK-2) CK-MB (CK-2) Rel Index Total Protein Albumin Urine WBC (Auto) Salicylates Acetaminophen Plasma/Serum Alcohol 11/27/19 11/27/19 11/27/19 05:37 12:20 15:46 WBC RBC Hgb Hct MCH RDW Plt Count Lymph % (Auto) [place] % (Auto) [place] # Seg Neutrophils % Seg Neuts % (Manual) Lymphocytes % (Manual) Seg Neutrophils # Seg Neutrophils # Man Lymphocytes # (Manual) Monocytes # (Manual) PT INR APTT ABG pH ABG pO2 ABG HCO3 ABG O2 Saturation ABG Base Excess ABG Hemoglobin Oxyhemoglobin Sodium 146 H Potassium 3.5 L D Chloride Carbon Dioxide BUN 24 H Creatinine 0.6 L Glucose 187 H POC Glucose 117 H 220 H Lactic Acid Calcium Ionized Calcium Phosphorus Magnesium Total Bilirubin AST ALT Alkaline Phosphatase Ammonia Total Creatine Kinase CK-MB (CK-2) CK-MB (CK-2) Rel Index Total Protein Albumin Urine WBC (Auto) Salicylates Acetaminophen Plasma/Serum Alcohol 11/27/19 11/28/19 11/28/19 17:28 05:00 05:02 WBC RBC Hgb Hct MCH RDW Plt Count Lymph % (Auto) [place] % (Auto) [place] # Seg Neutrophils % Seg Neuts % (Manual) Lymphocytes % (Manual) Seg Neutrophils # Seg Neutrophils # Man Lymphocytes # (Manual) Monocytes # (Manual) PT INR APTT ABG pH ABG pO2 72.4 L ABG HCO3 33.6 H ABG O2 Saturation 94.1 L ABG Base Excess 7.3 H ABG Hemoglobin Oxyhemoglobin 91.8 L Sodium 146 H Potassium 3.3 L Chloride Carbon Dioxide BUN 25 H Creatinine 0.6 L Glucose 176 H POC Glucose 198 H Lactic Acid Calcium Ionized Calcium Phosphorus Magnesium Total Bilirubin AST ALT Alkaline Phosphatase Ammonia Total Creatine Kinase CK-MB (CK-2) CK-MB (CK-2) Rel Index Total Protein Albumin Urine WBC (Auto) Salicylates Acetaminophen Plasma/Serum Alcohol 11/28/19 11/28/19 11/29/19 05:02 18:55 10:43 WBC 15.2 H 19.0 H RBC 3.06 L 3.01 L Hgb 8.3 L 8.3 L Hct 27.0 L 26.4 L MCH 27 L RDW 19.0 H 19.7 H Plt Count 479 H 611 H Lymph % (Auto) [place] % (Auto) [place] # Seg Neutrophils % Seg Neuts % (Manual) 92.0 H Lymphocytes % (Manual) 2.0 L Seg Neutrophils # Seg Neutrophils # Man 14.0 H Lymphocytes # (Manual) 0.3 L Monocytes # (Manual) PT INR APTT ABG pH ABG pO2 ABG HCO3 ABG O2 Saturation ABG Base Excess ABG Hemoglobin Oxyhemoglobin Sodium Potassium Chloride Carbon Dioxide BUN Creatinine Glucose POC Glucose 138 H Lactic Acid Calcium Ionized Calcium Phosphorus Magnesium Total Bilirubin AST ALT Alkaline Phosphatase Ammonia Total Creatine Kinase CK-MB (CK-2) CK-MB (CK-2) Rel Index Total Protein Albumin Urine WBC (Auto) Salicylates Acetaminophen Plasma/Serum Alcohol Chest x-ray: image reviewed (ETT riding high) Allied health notes reviewed: nursing
[2019-11-29 11:39] LABS: BUN/Creatinine Ratio 40; Blood Urea Nitrogen 20 mg/dL (7-17); Calcium 9.3 mg/dL (8.4-10.2); Hemolysis Index 1
--- NOTE | 2019-11-29 12:23 | Progress Note ---
Assessment and Plan Patient is a 54-year-old woman with a history of hypertension, depression, alcohol abuse, who presented with cardiac arrest. According patient's clinical findings, it is likely that she has had anoxic brain injury secondary to cardiac arrest. Plan: 1. Anoxic brain injury: CT head: No acute abnormality. -EEG: Generalized slowing. No seizures or epileptiform activity. Patient found to have intact corneal/VOR/cough reflexes, and is withdrawing and lower extremities, therefore patient is not found to be brain . However, given that patient had an out of hospital cardiac arrest, the time of which is uncertain, the likelihood of meaningful neurological recovery is somewhat low. -Discussed prognosis with patient's mother. Family meeting took place on 11/29/2019, and options for further care were discussed. Family will decide and get back to us in regards to their decision of what they would like to do next. - Cont. keppra 500mg BID for seizure prophylaxis. -Continue supportive care per primary team. -We will continue to monitor neurologic status. Patient will require further examination once sedation is completely held. Thank you for allowing me to take part in the care of this patient. Oliver Randhawa MD Neurology Subjective Date of service: 11/29/19 Principal diagnosis: Anoxic brain injury Interval history: No acute events overnight. Objective - Exam Narrative Exam: Patient is intubated, and comatose. Pupils bilaterally 3 mm and reactive to li ght. Intact corneal/VOR/cough reflexes. Withdraws bilaterally in lower extremities but not upper extremities. 2+ reflexes throughout. - Vital Sign Vital Signs - 12hr 11/29/19 11/29/19 11/29/19 00:30 01:00 01:30 Temperature Pulse Rate 80 84 80 Pulse Rate [ From Monitor] Respiratory 16 16 16 Rate Blood Pressure 128/76 114/70 121/75 O2 Sat by Pulse 100 98 99 Oximetry 11/29/19 11/29/19 11/29/19 02:00 02:30 03:00 Temperature Pulse Rate 82 82 82 Pulse Rate [ From Monitor] Respiratory 16 16 16 Rate Blood Pressure 133/82 126/79 134/81 O2 Sat by Pulse 99 100 99 Oximetry 11/29/19 11/29/19 11/29/19 03:17 03:30 04:00 Temperature 97.7 F Pulse Rate 100 H 104 H 110 H Pulse Rate [ From Monitor] Respiratory 13 22 Rate Blood Pressure 134/81 135/72 119/82 O2 Sat by Pulse 98 97 96 Oximetry 11/29/19 11/29/19 11/29/19 04:30 05:00 05:30 Temperature Pulse Rate 105 H 105 H 98 H Pulse Rate [ From Monitor] Respiratory 19 19 21 Rate Blood Pressure 126/86 129/91 122/81 O2 Sat by Pulse 95 96 97 Oximetry 11/29/19 11/29/19 11/29/19 06:00 06:30 07:00 Temperature Pulse Rate 111 H 112 H 103 H Pulse Rate [ From Monitor] Respiratory 18 12 16 Rate Blood Pressure 119/86 119/86 117/79 O2 Sat by Pulse 97 97 96 Oximetry 11/29/19 11/29/19 11/29/19 07:30 08:00 08:28 Temperature 98.5 F Pulse Rate 98 H 91 H 92 H Pulse Rate [ 92 H From Monitor] Respiratory 16 16 Rate Blood Pressure 120/77 110/70 117/74 O2 Sat by Pulse 97 97 100 Oximetry 11/29/19 11/29/19 11/29/19 08:30 09:00 09:30 Temperature Pulse Rate 92 H 96 H 91 H Pulse Rate [ From Monitor] Respiratory 19 15 15 Rate Blood Pressure 117/74 128/80 119/74 O2 Sat by Pulse 100 98 99 Oximetry 11/29/19 11/29/19 11/29/19 10:00 10:30 11:00 Temperature Pulse Rate 93 H 91 H 90 Pulse Rate [ From Monitor] Respiratory 16 16 15 Rate Blood Pressure 124/77 123/77 126/77 O2 Sat by Pulse 98 98 99 Oximetry 11/29/19 11/29/19 11:30 12:00 Temperature Pulse Rate 89 94 H Pulse Rate [ From Monitor] Respiratory 16 14 Rate Blood Pressure 123/79 126/81 O2 Sat by Pulse 99 98 Oximetry - General Apperance Constitutional: acutely ill - EENT EENT: ATNC, PERRL, mucous membranes moist - Respiratory Respiratory: decreased breath sounds - Cardiovascular Cardiovascular: regular rate, normal S1, normal S2 Extremities: no clubbing, cyanosis, no inflammation - Gastrointestinal Gastrointestinal: normoactive bowel sounds, soft, non-tender - Laboratory Findings CBC and BMP: 11/29/19 10:43 11/29/19 10:43 Abnormal Lab Findings: Abnormal Labs 11/22/19 11/22/19 11/22/19 23:17 23:18 23:27 WBC 21.2 H RBC 3.59 L Hgb 9.8 L Hct MCH 27 L RDW 18.6 H Plt Count 454 H Lymph % (Auto) Richardson % (Auto) Richardson # Seg Neutrophils % Seg Neuts % (Manual) 86.0 H Lymphocytes % (Manual) 9.0 L Seg Neutrophils # Seg Neutrophils # Man 18.2 H Lymphocytes # (Manual) Monocytes # (Manual) 1.1 H PT INR APTT ABG pH ABG pO2 ABG HCO3 ABG O2 Saturation ABG Base Excess ABG Hemoglobin Oxyhemoglobin Sodium Potassium Chloride Carbon Dioxide BUN Creatinine Glucose POC Glucose 53 L Lactic Acid Calcium Ionized Calcium Phosphorus Magnesium Total Bilirubin AST ALT Alkaline Phosphatase Ammonia Total Creatine Kinase CK-MB (CK-2) CK-MB (CK-2) Rel Index Total Protein Albumin Urine WBC (Auto) 40.0 H Salicylates Acetaminophen Plasma/Serum Alcohol 11/22/19 11/22/19 11/22/19 23:27 23:27 23:27 WBC RBC Hgb Hct MCH RDW Plt Count Lymph % (Auto) Richardson % (Auto) Richardson # Seg Neutrophils % Seg Neuts % (Manual) Lymphocytes % (Manual) Seg Neutrophils # Seg Neutrophils # Man Lymphocytes # (Manual) Monocytes # (Manual) PT INR APTT ABG pH ABG pO2 ABG HCO3 ABG O2 Saturation ABG Base Excess ABG Hemoglobin Oxyhemoglobin Sodium Potassium 2.4 L* Chloride 85.1 L Carbon Dioxide 19 L BUN Creatinine 0.5 L Glucose 261 H POC Glucose Lactic Acid Calcium Ionized Calcium Phosphorus Magnesium Total Bilirubin AST 609 H ALT 152 H Alkaline Phosphatase 160 H Ammonia 117.0 H Total Creatine Kinase 139 H CK-MB (CK-2) 8.3 H CK-MB (CK-2) Rel Index 5.9 H Total Protein Albumin 3.6 L Urine WBC (Auto) Salicylates < 0.3 L Acetaminophen Plasma/Serum Alcohol 11/22/19 11/22/19 11/23/19 23:27 23:27 01:10 WBC RBC Hgb Hct MCH RDW Plt Count Lymph % (Auto) Richardson % (Auto) Richardson # Seg Neutrophils % Seg Neuts % (Manual) Lymphocytes % (Manual) Seg Neutrophils # Seg Neutrophils # Man Lymphocytes # (Manual) Monocytes # (Manual) PT INR APTT ABG pH 7.273 L ABG pO2 209.7 H ABG HCO3 ABG O2 Saturation 99.2 H ABG Base Excess -3.9 L ABG Hemoglobin 10.6 L Oxyhemoglobin 93.9 L Sodium Potassium Chloride Carbon Dioxide BUN Creatinine Glucose POC Glucose Lactic Acid Calcium Ionized Calcium Phosphorus Magnesium Total Bilirubin AST ALT Alkaline Phosphatase Ammonia Total Creatine Kinase CK-MB (CK-2) CK-MB (CK-2) Rel Index Total Protein Albumin Urine WBC (Auto) Salicylates Acetaminophen < 5.0 L Plasma/Serum Alcohol 0.08 H 11/23/19 11/23/19 11/23/19 01:19 01:19 03:47 WBC RBC Hgb Hct MCH RDW Plt Count Lymph % (Auto) Richardson % (Auto) Richardson # Seg Neutrophils % Seg Neuts % (Manual) Lymphocytes % (Manual) Seg Neutrophils # Seg Neutrophils # Man Lymphocytes # (Manual) Monocytes # (Manual) PT 16.3 H INR 1.29 H APTT ABG pH ABG pO2 ABG HCO3 ABG O2 Saturation ABG Base Excess ABG Hemoglobin Oxyhemoglobin Sodium Potassium Chloride Carbon Dioxide BUN Creatinine Glucose POC Glucose Lactic Acid 2.10 H* 5.00 H* Calcium Ionized Calcium Phosphorus Magnesium Total Bilirubin AST ALT Alkaline Phosphatase Ammonia Total Creatine Kinase CK-MB (CK-2) CK-MB (CK-2) Rel Index Total Protein Albumin Urine WBC (Auto) Salicylates Acetaminophen Plasma/Serum Alcohol 11/23/19 11/23/19 11/23/19 03:47 03:47 04:53 WBC RBC Hgb 9.4 L Hct MCH RDW Plt Count Lymph % (Auto) Richardson % (Auto) Richardson # Seg Neutrophils % Seg Neuts % (Manual) Lymphocytes % (Manual) Seg Neutrophils # Seg Neutrophils # Man Lymphocytes # (Manual) Monocytes # (Manual) PT 17.0 H INR 1.36 H APTT 128.2 H* ABG pH ABG pO2 ABG HCO3 ABG O2 Saturation ABG Base Excess ABG Hemoglobin Oxyhemoglobin Sodium Potassium Chloride Carbon Dioxide 18 L BUN Creatinine 0.5 L Glucose 105 H POC Glucose Lactic Acid Calcium 8.3 L Ionized Calcium Phosphorus 2.40 L Magnesium Total Bilirubin 1.30 H AST 761 H ALT 158 H Alkaline Phosphatase 143 H Ammonia Total Creatine Kinase CK-MB (CK-2) CK-MB (CK-2) Rel Index Total Protein Albumin 2.8 L Urine WBC (Auto) Salicylates Acetaminophen Plasma/Serum Alcohol 11/23/19 11/23/19 11/23/19 05:12 06:32 06:32 WBC 16.8 H RBC 3.31 L Hgb 8.9 L Hct 28.7 L MCH 27 L RDW 18.6 H Plt Count Lymph % (Auto) Richardson % (Auto) Richardson # Seg Neutrophils % Seg Neuts % (Manual) 94.0 H Lymphocytes % (Manual) 1.0 L Seg Neutrophils # Seg Neutrophils # Man 15.8 H Lymphocytes # (Manual) 0.2 L Monocytes # (Manual) PT INR APTT ABG pH ABG pO2 ABG HCO3 ABG O2 Saturation ABG Base Excess -3.2 L ABG Hemoglobin 9.0 L Oxyhemoglobin 93.6 L Sodium Potassium Chloride Carbon Dioxide BUN Creatinine Glucose POC Glucose Lactic Acid Calcium Ionized Calcium 4.5 L Phosphorus Magnesium Total Bilirubin AST ALT Alkaline Phosphatase Ammonia Total Creatine Kinase CK-MB (CK-2) CK-MB (CK-2) Rel Index Total Protein Albumin Urine WBC (Auto) Salicylates Acetaminophen Plasma/Serum Alcohol 11/23/19 11/24/19 11/24/19 06:32 04:35 04:35 WBC RBC Hgb Hct MCH RDW Plt Count Lymph % (Auto) Richardson % (Auto) Richardson # Seg Neutrophils % Seg Neuts % (Manual) Lymphocytes % (Manual) Seg Neutrophils # Seg Neutrophils # Man Lymphocytes # (Manual) Monocytes # (Manual) PT INR APTT ABG pH ABG pO2 ABG HCO3 ABG O2 Saturation ABG Base Excess ABG Hemoglobin Oxyhemoglobin Sodium Potassium Chloride Carbon Dioxide BUN Creatinine Glucose POC Glucose Lactic Acid 3.30 H* Calcium Ionized Calcium Phosphorus Magnesium 1.40 L Total Bilirubin AST ALT Alkaline Phosphatase Ammonia 98.0 H Total Creatine Kinase CK-MB (CK-2) CK-MB (CK-2) Rel Index Total Protein Albumin Urine WBC (Auto) Salicylates Acetaminophen Plasma/Serum Alcohol 11/24/19 11/25/19 11/25/19 05:22 04:34 05:05 WBC 17.3 H RBC 2.88 L Hgb 7.8 L Hct 24.6 L MCH 27 L RDW 18.5 H Plt Count Lymph % (Auto) 7.7 L Richardson % (Auto) 9.7 H Richardson # 1.7 H Seg Neutrophils % 82.2 H Seg Neuts % (Manual) Lymphocytes % (Manual) Seg Neutrophils # 14.2 H Seg Neutrophils # Man Lymphocytes # (Manual) Monocytes # (Manual) PT INR APTT ABG pH 7.475 H ABG pO2 ABG HCO3 29.4 H 32.3 H ABG O2 Saturation ABG Base Excess 5.4 H 6.9 H ABG Hemoglobin 9.0 L 10.6 L Oxyhemoglobin 94.3 L Sodium Potassium Chloride Carbon Dioxide BUN Creatinine Glucose POC Glucose Lactic Acid Calcium Ionized Calcium Phosphorus Magnesium Total Bilirubin AST ALT Alkaline Phosphatase Ammonia Total Creatine Kinase CK-MB (CK-2) CK-MB (CK-2) Rel Index Total Protein Albumin Urine WBC (Auto) Salicylates Acetaminophen Plasma/Serum Alcohol 11/25/19 11/25/19 11/26/19 05:05 22:46 03:31 WBC RBC Hgb Hct MCH RDW Plt Count Lymph % (Auto) Richardson % (Auto) Richardson # Seg Neutrophils % Seg Neuts % (Manual) Lymphocytes % (Manual) Seg Neutrophils # Seg Neutrophils # Man Lymphocytes # (Manual) Monocytes # (Manual) PT INR APTT ABG pH 7.459 H ABG pO2 ABG HCO3 34.2 H ABG O2 Saturation ABG Base Excess 9.4 H ABG Hemoglobin 7.6 L Oxyhemoglobin 94.8 L Sodium 152 H D 147 H Potassium 2.3 L* D 2.8 L* D Chloride 107.8 H Carbon Dioxide 31 H D 33 H BUN Creatinine 0.6 L 0.6 L Glucose 148 H 177 H POC Glucose Lactic Acid Calcium Ionized Calcium Phosphorus Magnesium Total Bilirubin AST 105 H ALT 71 H Alkaline Phosphatase 155 H Ammonia Total Creatine Kinase CK-MB (CK-2) CK-MB (CK-2) Rel Index Total Protein 5.2 L D Albumin 2.9 L Urine WBC (Auto) Salicylates Acetaminophen Plasma/Serum Alcohol 11/26/19 11/26/19 11/27/19 08:24 08:24 04:20 WBC 12.0 H RBC 3.00 L Hgb 8.0 L 9.3 L Hct 25.9 L 29.7 L MCH 27 L RDW 18.5 H Plt Count Lymph % (Auto) Richardson % (Auto) Richardson # Seg Neutrophils % Seg Neuts % (Manual) 89.0 H Lymphocytes % (Manual) 4.0 L Seg Neutrophils # Seg Neutrophils # Man 10.7 H Lymphocytes # (Manual) 0.5 L Monocytes # (Manual) PT INR APTT ABG pH ABG pO2 ABG HCO3 ABG O2 Saturation ABG Base Excess ABG Hemoglobin Oxyhemoglobin Sodium 146 H Potassium 3.4 L D Chloride Carbon Dioxide BUN Creatinine 0.5 L Glucose 165 H POC Glucose Lactic Acid Calcium Ionized Calcium Phosphorus Magnesium Total Bilirubin AST 57 H ALT Alkaline Phosphatase 166 H Ammonia Total Creatine Kinase CK-MB (CK-2) CK-MB (CK-2) Rel Index Total Protein Albumin 2.9 L Urine WBC (Auto) Salicylates Acetaminophen Plasma/Serum Alcohol 11/27/19 11/27/19 11/27/19 04:28 04:28 04:42 WBC RBC Hgb Hct MCH RDW Plt Count Lymph % (Auto) Richardson % (Auto) Richardson # Seg Neutrophils % Seg Neuts % (Manual) Lymphocytes % (Manual) Seg Neutrophils # Seg Neutrophils # Man Lymphocytes # (Manual) Monocytes # (Manual) PT INR APTT ABG pH 7.470 H ABG pO2 74.0 L ABG HCO3 33.8 H ABG O2 Saturation ABG Base Excess 9.1 H ABG Hemoglobin 8.7 L Oxyhemoglobin 94.7 L Sodium 146 H Potassium 2.9 L* Chloride Carbon Dioxide BUN 25 H Creatinine Glucose 213 H POC Glucose Lactic Acid Calcium Ionized Calcium Phosphorus 1.00 L Magnesium Total Bilirubin AST ALT Alkaline Phosphatase Ammonia Total Creatine Kinase CK-MB (CK-2) CK-MB (CK-2) Rel Index Total Protein Albumin Urine WBC (Auto) Salicylates Acetaminophen Plasma/Serum Alcohol 11/27/19 11/27/19 11/27/19 05:37 12:20 15:46 WBC RBC Hgb Hct MCH RDW Plt Count Lymph % (Auto) Richardson % (Auto) Richardson # Seg Neutrophils % Seg Neuts % (Manual) Lymphocytes % (Manual) Seg Neutrophils # Seg Neutrophils # Man Lymphocytes # (Manual) Monocytes # (Manual) PT INR APTT ABG pH ABG pO2 ABG HCO3 ABG O2 Saturation ABG Base Excess ABG Hemoglobin Oxyhemoglobin Sodium 146 H Potassium 3.5 L D Chloride Carbon Dioxide BUN 24 H Creatinine 0.6 L Glucose 187 H POC Glucose 117 H 220 H Lactic Acid Calcium Ionized Calcium Phosphorus Magnesium Total Bilirubin AST ALT Alkaline Phosphatase Ammonia Total Creatine Kinase CK-MB (CK-2) CK-MB (CK-2) Rel Index Total Protein Albumin Urine WBC (Auto) Salicylates Acetaminophen Plasma/Serum Alcohol 11/27/19 11/28/19 11/28/19 17:28 05:00 05:02 WBC RBC Hgb Hct MCH RDW Plt Count Lymph % (Auto) Richardson % (Auto) Richardson # Seg Neutrophils % Seg Neuts % (Manual) Lymphocytes % (Manual) Seg Neutrophils # Seg Neutrophils # Man Lymphocytes # (Manual) Monocytes # (Manual) PT INR APTT ABG pH ABG pO2 72.4 L ABG HCO3 33.6 H ABG O2 Saturation 94.1 L ABG Base Excess 7.3 H ABG Hemoglobin Oxyhemoglobin 91.8 L Sodium 146 H Potassium 3.3 L Chloride Carbon Dioxide BUN 25 H Creatinine 0.6 L Glucose 176 H POC Glucose 198 H Lactic Acid Calcium Ionized Calcium Phosphorus Magnesium Total Bilirubin AST ALT Alkaline Phosphatase Ammonia Total Creatine Kinase CK-MB (CK-2) CK-MB (CK-2) Rel Index Total Protein Albumin Urine WBC (Auto) Salicylates Acetaminophen Plasma/Serum Alcohol 11/28/19 11/28/19 11/29/19 05:02 18:55 10:43 WBC 15.2 H 19.0 H RBC 3.06 L 3.01 L Hgb 8.3 L 8.3 L Hct 27.0 L 26.4 L MCH 27 L RDW 19.0 H 19.7 H Plt Count 479 H 611 H Lymph % (Auto) Richardson % (Auto) Richardson # Seg Neutrophils % Seg Neuts % (Manual) 92.0 H Lymphocytes % (Manual) 2.0 L Seg Neutrophils # Seg Neutrophils # Man 14.0 H Lymphocytes # (Manual) 0.3 L Monocytes # (Manual) PT INR APTT ABG pH ABG pO2 ABG HCO3 ABG O2 Saturation ABG Base Excess ABG Hemoglobin Oxyhemoglobin Sodium Potassium Chloride Carbon Dioxide BUN Creatinine Glucose POC Glucose 138 H Lactic Acid Calcium Ionized Calcium Phosphorus Magnesium Total Bilirubin AST ALT Alkaline Phosphatase Ammonia Total Creatine Kinase CK-MB (CK-2) CK-MB (CK-2) Rel Index Total Protein Albumin Urine WBC (Auto) Salicylates Acetaminophen Plasma/Serum Alcohol 11/29/19 10:43 WBC RBC Hgb Hct MCH RDW Plt Count Lymph % (Auto) Richardson % (Auto) Richardson # Seg Neutrophils % Seg Neuts % (Manual) Lymphocytes % (Manual) Seg Neutrophils # Seg Neutrophils # Man Lymphocytes # (Manual) Monocytes # (Manual) PT INR APTT ABG pH ABG pO2 ABG HCO3 ABG O2 Saturation ABG Base Excess ABG Hemoglobin Oxyhemoglobin Sodium Potassium 2.8 L* Chloride Carbon Dioxide BUN 20 H Creatinine 0.5 L Glucose 121 H POC Glucose Lactic Acid Calcium Ionized Calcium Phosphorus Magnesium Total Bilirubin AST ALT Alkaline Phosphatase Ammonia Total Creatine Kinase CK-MB (CK-2) CK-MB (CK-2) Rel Index Total Protein Albumin Urine WBC (Auto) Salicylates Acetaminophen Plasma/Serum Alcohol
--- NOTE | 2019-11-29 12:26 | Progress Note ---
Assessment and Plan Cultures: 11/22/2019 urine culture:no significant growth 11/22/2019 tracheal aspirate culture: H. influenzae 11/23/2019 blood culture: No growth A/P: 54-year-old female with hypertension, depression, tobacco use, alcohol abuse was brought into the emergency room on 11/22/2019 after she went into respiratory arrest at home requiring CPR by EMS: #Sepsis: Source could be UTI versus pneumonitis versus SBP. UA showed pyuria. RUQ US showed no ascites. #Pneumonitis, acute respiratory failure: Possibly aspiration. No pneumonia seen. On mechanical ventilation. #Elevated LFTs, alcohol abuse, status post arrest requiring CPR: Trend LFTs. RUQ US showed no ascites. #Acute encephalopathy: Likely multifactorial from alcohol abuse, status post arrest, electrolyte abnormalities. #Diarrhea: likely combination of tube feeds and lactulose. Recs: Completed Ceftriaxone x 7 days, will stop continue to monitor WBC, if it keeps rising, may need to get a CT abdomen pelvis with IV contrast. Isaías Aaron MD, FACP [facility] C: [phone] O: [phone] F: [phone] Subjective Date of service: 11/29/19 Principal diagnosis: Anoxic brain injury Interval history: Patient remains afebrile, but mental status is unchanged. Remains on the vent. Not following any commands. Objective - Exam Narrative Exam: Physical Exam: Constitutional: eyes open, intubated Head, Ears, Nose: Normocephalic, atraumatic. External ears, nose normal Eyes: Conjunctivae/corneas clear. No icterus. No ptosis. Neck: intubated Oral: intubated Cardiovascular: S1, S2 normal Respiratory: Good air entry, clear to auscultation bilaterally GI: slightly distended, bowel sounds present. Rectal tube present with liquid stool Musculoskeletal: No pedal edema, no cyanosis. Skin: No rash or abscess Hem/Lymphatic: No palpable cervical or supraclavicular nodes. No lymphangitis Psych: no agitation. Neurological: eyes open, but not following commands, intubated, on vent - Constitutional Vitals: Vital Signs Temp Pulse Resp BP Pulse Ox 98.5 F 94 H 14 126/81 98 11/29/19 08:00 11/29/19 12:00 11/29/19 12:00 11/29/19 12:00 11/29/19 12:00 Temperature -Last 24 Hours Temperature 98.5 F Temperature 97.7 F Temperature 98.0 F Temperature 97.9 F Temperature 96.6 F - Labs CBC & Chem 7: 11/29/19 10:43 11/29/19 10:43 Labs: Abnormal lab results 11/28/19 11/29/19 11/29/19 Range/Units 18:55 10:43 10:43 WBC 19.0 H (4.5-11.0) K/mm3 RBC 3.01 L (3.65-5.03) M/mm3 Hgb 8.3 L (10.1-14.3) gm/dl Hct 26.4 L (30.3-42.9) % RDW 19.7 H (13.2-15.2) % Plt Count 611 H (140-440) K/mm3 Potassium 2.8 L* (3.6-5.0) mmol/L BUN 20 H (7-17) mg/dL Creatinine 0.5 L (0.7-1.2) mg/dL Glucose 121 H (65-100) mg/dL POC Glucose 138 H (70-105) - Imaging and cardiology Chest x-ray: report reviewed, image reviewed (No interval change, no pneumonia seen)
[2019-11-29] MEDS: QUEtiapine 100 MG TAB PO SCH ×2 (12:57→21:19)
[2019-11-29] MEDS: POTASSIUM CHLORIDE 20 MEQ PACKET FEEDTUBE SCH ×3 (12:57→21:19)
[2019-11-29] MEDS: POTASSIUM CHLORIDE 10 MEQ 10 MEQ/100 ML BAG IV SCH ×3 (16:58→19:54)
--- NOTE | 2019-11-29 17:02 | Progress Note ---
Assessment and Plan / Anoxic brain injury: suspected CT head: No acute abnormality. neurology consult placed, EEG ordered showed Generalized slowing. No seizures or epileptiform activity. Per neurology : Patient found to have intact corneal/VOR/cough reflexes, and is withdrawing and lower extremities, therefore patient is not found to be brain . However, given that patient had an out of hospital cardiac arrest, the time of which is uncertain, the likelihood of meaningful neurological recovery is somewhat low. /Acute Respiratory Arrest -Patient is intubated and on mechanical ventilation - CTA was done and negative for PE, heparin GTT discontinued - Echo quality is poor, showed diastolic dysfunction - continue ICU monitoring -Patient move her extremities and open her eyes when sedation is decreased /Hyperammonemia - likely from liver disease related to EtOH abuse - Patient has elevated ammonia level and on lactulose /Metabolic Acidosis -Alcohol ketoacidosis vs hypoprofusion - IVF -Continue to monitor /ELevated LFTs - ischemic hepatitis. could worsen - monitor LFTs /Leucocytosis with sepsis - Source could be UTI versus pneumonitis versus SBP. UA showed pyuria. RUQ US showed no ascites. - tracheal aspirate grew H. influenza - hemodynamically stable, ID following - Continue IV ceftriaxone 2 g daily overall day 6 of abx therapy, tentatively plan to stop after 7 days /ALcohol USe Disorder - given ongoing Alcohol use almost daily, IV Thiamine for now - monitor /Severe hypokalemia -Repleted -We will follow magnesium and potassium level FUll code, family denies DNR Very poor prognosis The high probability of a clinically significant, sudden or life threatening deterioration of the [neurology,respiratory] system(s) required my full and direct attention, intervention and personal management. The aggregate critical care time was [32] minutes. This time is in addition to time spent performing reported procedures but includes the following: [x] Data Review and interpretation [x] Patient assessment and monitoring of vital signs [x] Documentation [x] Medication orders and management Disposition: prognosis poor. may need trach and PEG Brief History: 54-year-old female with a past medical history of Hypertension, Depression, Tobacco use Disorder, Alcohol use Disorder as confirmed by Daughter and pt's mother presents to the hospital status post cardiac arrest at home. EMS found pt in [place]. They were unable to intubate patient with a ET tube because she was clenching down therefore Joe airway placed. Per the ED physician who evaluated pt, Patient presented with a pulse, intermittent respirations, and bagging support via Joe airway with O2 sat of 100%. Accu-Chek of 71 obtained by EMS. She was intubated in the ER and called for admission. Subjective Date of service: 11/29/19 Principal diagnosis: Anoxic brain injury Interval history: Patient seen and examined remained intubated, unresponsive, no clinical change discuss with neuro - family meeting held today - family wants to continue full code Objective - Exam Narrative Exam: General appearance: Present: other (on vent comatose, elderly female) - EENT Eyes: no scleral icterus, no conjunctival injection, pupil not reactive ENT: clear oral mucosa, dentition normal, no oropharyngeal erythema Ears: bilateral: normal - Neck Neck: supple, normal ROM - Respiratory Respiratory effort: other (on vent) Respiratory: bilateral: rales - Cardiovascular Rhythm: regular Heart Sounds: Present: S1 & S2. Absent: gallop, rub Extremities: pulses intact, No edema, normal color - Gastrointestinal General gastrointestinal: Present: soft, non-tender, non-distended, normal bowel sounds - Integumentary Integumentary: clear, warm, dry - Musculoskeletal Musculoskeletal: does not respond to commend - Neurologic Neurologic: other (intubated and 2+ reflexes throughout) - Psychiatric Psychiatric: no appropriate mood/affect, no intact judgment & insight, no memory intact - Constitutional Vitals: Vital Signs - 12hr 11/29/19 11/29/19 11/29/19 05:30 06:00 06:30 Temperature Pulse Rate 98 H 111 H 112 H Pulse Rate [ From Monitor] Respiratory 21 18 12 Rate Blood Pressure 122/81 119/86 119/86 O2 Sat by Pulse 97 97 97 Oximetry 11/29/19 11/29/19 11/29/19 07:00 07:30 08:00 Temperature 98.5 F Pulse Rate 103 H 98 H 91 H Pulse Rate [ 92 H From Monitor] Respiratory 16 16 16 Rate Blood Pressure 117/79 120/77 110/70 O2 Sat by Pulse 96 97 97 Oximetry 11/29/19 11/29/19 11/29/19 08:28 08:30 09:00 Temperature Pulse Rate 92 H 92 H 92 H Pulse Rate [ From Monitor] Respiratory 19 15 Rate Blood Pressure 117/74 117/74 128/80 O2 Sat by Pulse 100 100 98 Oximetry 03/09/0711/29/19 11/29/19 09:30 10:00 10:30 Temperature Pulse Rate 91 H 93 H 91 H Pulse Rate [ From Monitor] Respiratory 15 16 16 Rate Blood Pressure 119/74 124/77 123/77 O2 Sat by Pulse 99 98 98 Oximetry 11/29/19 11/29/19 11/29/19 11:00 11:30 12:00 Temperature 98.6 F Pulse Rate 90 89 94 H Pulse Rate [ 91 H From Monitor] Respiratory 15 16 14 Rate Blood Pressure 126/77 123/79 126/81 O2 Sat by Pulse 99 99 98 Oximetry 11/29/19 11/29/19 11/29/19 12:19 12:30 12:38 Temperature Pulse Rate 98 H 109 H 105 H Pulse Rate [ From Monitor] Respiratory 19 21 Rate Blood Pressure 126/81 123/78 123/78 O2 Sat by Pulse 96 97 97 Oximetry 11/29/19 11/29/19 11/29/19 13:00 13:30 14:00 Temperature Pulse Rate 91 H 108 H 105 H Pulse Rate [ From Monitor] Respiratory 16 15 20 Rate Blood Pressure 122/80 99/64 114/78 O2 Sat by Pulse 96 95 97 Oximetry 11/29/19 11/29/19 11/29/19 14:30 15:00 15:30 Temperature Pulse Rate 110 H 105 H 102 H Pulse Rate [ From Monitor] Respiratory 18 21 18 Rate Blood Pressure 112/76 112/71 120/75 O2 Sat by Pulse 96 97 97 Oximetry 11/29/19 11/29/19 11/29/19 16:00 16:28 16:30 Temperature 99.0 F Pulse Rate 100 H 98 H 99 H Pulse Rate [ 100 H From Monitor] Respiratory 19 18 Rate Blood Pressure 123/78 125/79 125/79 O2 Sat by Pulse 98 100 98 Oximetry - Labs CBC & Chem 7: 11/29/19 10:43 11/29/19 10:43 Labs: Abnormal lab results 11/28/19 11/29/19 11/29/19 Range/Units 18:55 10:43 10:43 WBC 19.0 H (4.5-11.0) K/mm3 RBC 3.01 L (3.65-5.03) M/mm3 Hgb 8.3 L (10.1-14.3) gm/dl Hct 26.4 L (30.3-42.9) % RDW 19.7 H (13.2-15.2) % Plt Count 611 H (140-440) K/mm3 Potassium 2.8 L* (3.6-5.0) mmol/L BUN 20 H (7-17) mg/dL Creatinine 0.5 L (0.7-1.2) mg/dL Glucose 121 H (65-100) mg/dL POC Glucose 138 H (70-105) 11/29/19 Range/Units 12:27 WBC (4.5-11.0) K/mm3 RBC (3.65-5.03) M/mm3 Hgb (10.1-14.3) gm/dl Hct (30.3-42.9) % RDW (13.2-15.2) % Plt Count (140-440) K/mm3 Potassium (3.6-5.0) mmol/L BUN (7-17) mg/dL Creatinine (0.7-1.2) mg/dL Glucose (65-100) mg/dL POC Glucose 128 H (70-105)
[2019-11-30] MEDS: LACTULOSE 20 GM/30 ML ORAL LIQD PO SCH ×2 (00:20→05:58)
[2019-11-30 04:53] LABS: ABG Base Excess 6.9 mmol/L (-2.0-3.0); ABG HCO3 32.5 mmol/L (20.0-26.0); ABG Methemoglobin 0.5 % (0.0-1.5); ABG PCO2 53.5 mm Hg; ABG PH 7.402 pH Units (7.350-7.450); ABG PO2 76.3 mm Hg (80.0-90.0)
[2019-11-30] MEDS: chlordiazePOXIDE 25 MG CAP PO SCH ×3 (06:03→22:00)
[2019-11-30 06:09] LABS: Basophils % (Auto) 0.3 % (0.0-1.8); Eosinophils # (Auto) 0.3 K/mm3 (0.0-0.4); Eosinophils % (Auto) 1.5 % (0.0-4.3); Hematocrit 27.5 % (30.3-42.9); Hemoglobin 8.5 gm/dl (10.1-14.3); Lymphocytes # (Auto) 1.3 K/mm3 (1.2-5.4); Lymphocytes % (Auto) 7.1 % (13.4-35.0); Mean Corpuscular HGB Conc 31 % (30-34); Mean Corpuscular Volume 89 fl (79-97); Monocytes # (Auto) 1.4 K/mm3 (0.0-0.8); Monocytes % (Auto) 7.7 % (0.0-7.3); Platelet Count 691 K/mm3 (140-440)
[2019-11-30 06:10] LABS: Red Cell Distribution Width 20.9 % (13.2-15.2)
[2019-11-30 06:37] LABS: Alanine Aminotransferase 274 units/L (7-56); Albumin 2.9 g/dL (3.9-5); BUN/Creatinine Ratio 32; Blood Urea Nitrogen 16 mg/dL (7-17); Calcium 9.4 mg/dL (8.4-10.2); Hemolysis Index 77
[2019-11-30] MEDS: HEPARIN 5,000 UNIT/1 ML VIAL SUB-Q SCH ×2 (10:53→21:35)
[2019-11-30] MEDS: QUEtiapine 100 MG TAB PO SCH ×2 (10:53→21:27)
[2019-11-30] MEDS: levETIRAcetam 500 MG/5 ML ORAL LIQD PO SCH ×2 (10:53→21:27)
[2019-11-30] MEDS: LANSOPRAZOLE 30 MG SOLUTAB FEEDTUBE SCH (10:53)
--- NOTE | 2019-11-30 11:23 | Progress Note ---
Assessment and Plan Acute cardiopulmonary arrest with ROSC Acute hypoxemic respiratory failure on MVS Acute metabolic-toxic encephalopathy Metabolic acidosis/alcoholic acidosis/Lactic acidosis Ischemic hepatitis Leucocytosis with lactic acidosis Tobacco use disorder ALcohol use Disorder Hypokalemia High grade fevers (Had family meeting with daughter, mother and sister in attendance; explained poor prognostic signs for neurologic recovery and likely need for trach & PEG + assistance with ADL's) - discontinue Lactulose re: Diarrhea - increase Seroquel for tentative delirium and to spare IV sedation - Potassium replaced adequately - Antibiotics de-escalated per ID to Ceftriaxone based on HILARIO/sensitivities - CIWA protocol - Continue with MVS - VAP bundle addressed (continue aspiration precautions, HOB>40) - ontinue daily SAT's and assessment for readiness for SBT (For PSV trial today) - Continue Intermittent sedation until patient's neurologic state can be better evaluated - begin Seroquel for agitation / to spare IV sedatives - Continue VTE and Stress ulcer prophylaxis - Continue enteric nutritional support. Monitor glycemic control, with target blood glucose 140-180 mg/dL while critically ill (Avoid hypoglycemia) - Continue daily SAT assessment as tolerated - Continue to wean supplemental oxygen for target O2 sat's > 90% - ABG and CXR prn - continue bronchodilators with p[ulmonary hygiene per RT - Continue to trend leukocytosis and lactic acidosis - Continue to treat for hepatic encephalopathy- especially with elevated ammonia levels- lactulose - Continue thiamine, multivitamin and electrolyte replacement - Continue to avoid nephrotoxins, adjust all medications fro GFR and CrCL - Continue bronchodilators with pulmonary hygiene - Continue to avoid benzodiazepines , as much as possible, to reduce the possibility of delirium - Continue prn analgesia per CPOT score - Continue to maintain of sleep-wake cycle, avoid delirium - PT/OT/ROM exercises- awaiting PT/OT evaluation - Continue mobility protocol and skin assessment per protocol for pressure ulcer prevention - Continue to monitor for clinical seizures - Continue Nicotine withdrawal precautions, alcohol withdrawal precautions - continue other care per attending / other consultants ..... re-eval;uate in am & prn CONDITION: CRITICAL PROGNOSIS: GUARDED CODE STATUS: FULL CODE The high probability of a clinically significant, sudden or life-threatening deterioration of the [respiratory, cardiovascular,GI/hepatology] system(s) required my full and direct attention, intervention and personal management. The aggregate critical care time was [35] minutes without overlap. Time includes spent on; [x] Data Review and interpretation [x] Patient assessment and monitoring of vital signs [x] Documentation [x] Medication orders and management Subjective Date of service: 11/30/19 Principal diagnosis: Ac cardiopulmonary arrest; Ac hypoxemic resp failure; Acute encephalopathy Interval history: Patient is seen today for: Acute cardiopulmonary arrest with ROSC; Acute hypoxemic respiratory failure; Acute metabolic-toxic encephalopathy; Ischemic hepatitis; Leucocytosis with lactic acidosis; Tobacco use disorder; Alcohol use Disorder; Hypokalemia; High grade fevers Seen and examined at bedside; 24hour events reviewed; nursing and respiratory care staff consulted; no adverse overnight events reported to me; resting peacefully in bed; remains on MVS; AMS is persistent; failed SBT; still with significant agitation during sedation vacations Objective Vital Signs - 12hr 11/29/19 11/30/19 11/30/19 23:30 00:00 00:30 Temperature Pulse Rate 107 H 102 H 108 H Pulse Rate [ 97 H From Monitor] Respiratory 11 L 18 16 Rate Blood Pressure 120/77 130/79 105/65 O2 Sat by Pulse 95 98 97 Oximetry 11/30/19 11/30/19 11/30/19 01:00 01:15 01:30 Temperature Pulse Rate 105 H 106 H 102 H Pulse Rate [ From Monitor] Respiratory 17 16 Rate Blood Pressure 125/80 125/80 127/79 O2 Sat by Pulse 98 98 99 Oximetry 11/30/19 11/30/19 11/30/19 02:00 02:30 03:00 Temperature Pulse Rate 105 H 102 H 101 H Pulse Rate [ From Monitor] Respiratory 14 15 15 Rate Blood Pressure 111/69 112/71 127/79 O2 Sat by Pulse 95 97 99 Oximetry 11/30/19 11/30/19 11/30/19 03:27 03:30 04:00 Temperature 99.2 F Pulse Rate 101 H 104 H Pulse Rate [ 97 H From Monitor] Respiratory 15 15 Rate Blood Pressure 125/80 115/71 O2 Sat by Pulse 98 98 Oximetry 11/30/19 11/30/19 11/30/19 04:30 05:00 05:30 Temperature Pulse Rate 102 H 105 H 105 H Pulse Rate [ From Monitor] Respiratory 15 13 16 Rate Blood Pressure 131/85 116/76 119/76 O2 Sat by Pulse 98 98 98 Oximetry 11/30/19 11/30/1920 06:00 06:30 07:00 Temperature Pulse Rate 105 H 110 H 109 H Pulse Rate [ From Monitor] Respiratory 20 26 H 17 Rate Blood Pressure 123/77 116/80 118/75 O2 Sat by Pulse 98 97 99 Oximetry 11/30/19 11/30/19 11/30/19 07:30 08:00 08:30 Temperature 98.9 F Pulse Rate 105 H 106 H 111 H Pulse Rate [ 97 H From Monitor] Respiratory 15 11 L 20 Rate Blood Pressure 119/79 128/82 102/65 O2 Sat by Pulse 99 99 99 Oximetry 11/30/19 11/30/19 11/30/19 09:00 09:08 09:30 Temperature Pulse Rate 111 H 111 H 108 H Pulse Rate [ From Monitor] Respiratory 20 15 Rate Blood Pressure 117/77 117/77 117/73 O2 Sat by Pulse 97 97 97 Oximetry 11/30/19 11/30/19 11/30/19 10:00 10:30 11:00 Temperature Pulse Rate 106 H 105 H 102 H Pulse Rate [ From Monitor] Respiratory 16 12 15 Rate Blood Pressure 111/68 110/68 116/72 O2 Sat by Pulse 96 97 99 Oximetry Constitutional: no acute distress, other (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, orally intuabted ETT at 23 cm at the lip to mVS, no dys-synchrony) Eyes: non-icteric ENT: oropharynx moist, other (ETT 23 cm AMALIA) Neck: supple, no lymphadenopathy, no JVD Effort: mildly labored Ascultation: Bilateral: diminished breath sounds, rhonchi Percussion: Bilateral: not dull Cardiovascular: regular rate and rhythm (tachycardia), other (S1,S2) Gastrointestinal: normoactive bowel sounds, soft, non-tender, non-distended Integumentary: normal Extremities: no cyanosis, no edema, pulses normal, no ischemia or petechiae Neurologic: unable to assess, other (awake but not tracking voice ) Psychiatric: other (Psychiatric: Unable to assess) CBC and BMP: 12/01/19 08:23 12/01/19 08:23 ABG, PT/INR, D-dimer: ABG ABG pH 7.402 pH Units (7.350-7.450) 11/30/19 04:10 ABG pCO2 53.5 mm Hg 11/30/19 04:10 ABG pO2 76.3 mm Hg (80.0-90.0) L 11/30/19 04:10 ABG O2 Saturation 95.0 % (95.0-99.0) 11/30/19 04:10 PT/INR, D-dimer PT 17.0 Sec. (12.2-14.9) H 11/23/19 03:47 INR 1.36 (0.87-1.13) H 11/23/19 03:47 Abnormal lab findings: Abnormal Labs 11/22/19 11/22/19 11/22/19 23:17 23:18 23:27 WBC 21.2 H RBC 3.59 L Hgb 9.8 L Hct MCH 27 L RDW 18.6 H Plt Count 454 H Lymph % (Auto) [place] % (Auto) [place] # Seg Neutrophils % Seg Neuts % (Manual) 86.0 H Lymphocytes % (Manual) 9.0 L Seg Neutrophils # Seg Neutrophils # Man 18.2 H Lymphocytes # (Manual) Monocytes # (Manual) 1.1 H PT INR APTT ABG pH ABG pO2 ABG HCO3 ABG O2 Saturation ABG Base Excess ABG Hemoglobin Oxyhemoglobin Sodium Potassium Chloride Carbon Dioxide BUN Creatinine Glucose POC Glucose 53 L Lactic Acid Calcium Ionized Calcium Phosphorus Magnesium Total Bilirubin AST ALT Alkaline Phosphatase Ammonia Total Creatine Kinase CK-MB (CK-2) CK-MB (CK-2) Rel Index Total Protein Albumin Urine WBC (Auto) 40.0 H Salicylates Acetaminophen Plasma/Serum Alcohol 11/22/19 11/22/19 11/22/19 23:27 23:27 23:27 WBC RBC Hgb Hct MCH RDW Plt Count Lymph % (Auto) [place] % (Auto) [place] # Seg Neutrophils % Seg Neuts % (Manual) Lymphocytes % (Manual) Seg Neutrophils # Seg Neutrophils # Man Lymphocytes # (Manual) Monocytes # (Manual) PT INR APTT ABG pH ABG pO2 ABG HCO3 ABG O2 Saturation ABG Base Excess ABG Hemoglobin Oxyhemoglobin Sodium Potassium 2.4 L* Chloride 85.1 L Carbon Dioxide 19 L BUN Creatinine 0.5 L Glucose 261 H POC Glucose Lactic Acid Calcium Ionized Calcium Phosphorus Magnesium Total Bilirubin AST 609 H ALT 152 H Alkaline Phosphatase 160 H Ammonia 117.0 H Total Creatine Kinase 139 H CK-MB (CK-2) 8.3 H CK-MB (CK-2) Rel Index 5.9 H Total Protein Albumin 3.6 L Urine WBC (Auto) Salicylates < 0.3 L Acetaminophen Plasma/Serum Alcohol 11/22/19 11/22/19 11/23/19 23:27 23:27 01:10 WBC RBC Hgb Hct MCH RDW Plt Count Lymph % (Auto) [place] % (Auto) [place] # Seg Neutrophils % Seg Neuts % (Manual) Lymphocytes % (Manual) Seg Neutrophils # Seg Neutrophils # Man Lymphocytes # (Manual) Monocytes # (Manual) PT INR APTT ABG pH 7.273 L ABG pO2 209.7 H ABG HCO3 ABG O2 Saturation 99.2 H ABG Base Excess -3.9 L ABG Hemoglobin 10.6 L Oxyhemoglobin 93.9 L Sodium Potassium Chloride Carbon Dioxide BUN Creatinine Glucose POC Glucose Lactic Acid Calcium Ionized Calcium Phosphorus Magnesium Total Bilirubin AST ALT Alkaline Phosphatase Ammonia Total Creatine Kinase CK-MB (CK-2) CK-MB (CK-2) Rel Index Total Protein Albumin Urine WBC (Auto) Salicylates Acetaminophen < 5.0 L Plasma/Serum Alcohol 0.08 H 11/23/19 11/23/19 11/23/19 01:19 01:19 03:47 WBC RBC Hgb Hct MCH RDW Plt Count Lymph % (Auto) [place] % (Auto) [place] # Seg Neutrophils % Seg Neuts % (Manual) Lymphocytes % (Manual) Seg Neutrophils # Seg Neutrophils # Man Lymphocytes # (Manual) Monocytes # (Manual) PT 16.3 H INR 1.29 H APTT ABG pH ABG pO2 ABG HCO3 ABG O2 Saturation ABG Base Excess ABG Hemoglobin Oxyhemoglobin Sodium Potassium Chloride Carbon Dioxide BUN Creatinine Glucose POC Glucose Lactic Acid 2.10 H* 5.00 H* Calcium Ionized Calcium Phosphorus Magnesium Total Bilirubin AST ALT Alkaline Phosphatase Ammonia Total Creatine Kinase CK-MB (CK-2) CK-MB (CK-2) Rel Index Total Protein Albumin Urine WBC (Auto) Salicylates Acetaminophen Plasma/Serum Alcohol 11/23/19 11/23/19 11/23/19 03:47 03:47 04:53 WBC RBC Hgb 9.4 L Hct MCH RDW Plt Count Lymph % (Auto) [place] % (Auto) [place] # Seg Neutrophils % Seg Neuts % (Manual) Lymphocytes % (Manual) Seg Neutrophils # Seg Neutrophils # Man Lymphocytes # (Manual) Monocytes # (Manual) PT 17.0 H INR 1.36 H APTT 128.2 H* ABG pH ABG pO2 ABG HCO3 ABG O2 Saturation ABG Base Excess ABG Hemoglobin Oxyhemoglobin Sodium Potassium Chloride Carbon Dioxide 18 L BUN Creatinine 0.5 L Glucose 105 H POC Glucose Lactic Acid Calcium 8.3 L Ionized Calcium Phosphorus 2.40 L Magnesium Total Bilirubin 1.30 H AST 761 H ALT 158 H Alkaline Phosphatase 143 H Ammonia Total Creatine Kinase CK-MB (CK-2) CK-MB (CK-2) Rel Index Total Protein Albumin 2.8 L Urine WBC (Auto) Salicylates Acetaminophen Plasma/Serum Alcohol 11/23/19 11/23/19 11/23/19 05:12 06:32 06:32 WBC 16.8 H RBC 3.31 L Hgb 8.9 L Hct 28.7 L MCH 27 L RDW 18.6 H Plt Count Lymph % (Auto) [place] % (Auto) [place] # Seg Neutrophils % Seg Neuts % (Manual) 94.0 H Lymphocytes % (Manual) 1.0 L Seg Neutrophils # Seg Neutrophils # Man 15.8 H Lymphocytes # (Manual) 0.2 L Monocytes # (Manual) PT INR APTT ABG pH ABG pO2 ABG HCO3 ABG O2 Saturation ABG Base Excess -3.2 L ABG Hemoglobin 9.0 L Oxyhemoglobin 93.6 L Sodium Potassium Chloride Carbon Dioxide BUN Creatinine Glucose POC Glucose Lactic Acid Calcium Ionized Calcium 4.5 L Phosphorus Magnesium Total Bilirubin AST ALT Alkaline Phosphatase Ammonia Total Creatine Kinase CK-MB (CK-2) CK-MB (CK-2) Rel Index Total Protein Albumin Urine WBC (Auto) Salicylates Acetaminophen Plasma/Serum Alcohol 11/23/19 11/24/19 11/24/19 06:32 04:35 04:35 WBC RBC Hgb Hct MCH RDW Plt Count Lymph % (Auto) [place] % (Auto) [place] # Seg Neutrophils % Seg Neuts % (Manual) Lymphocytes % (Manual) Seg Neutrophils # Seg Neutrophils # Man Lymphocytes # (Manual) Monocytes # (Manual) PT INR APTT ABG pH ABG pO2 ABG HCO3 ABG O2 Saturation ABG Base Excess ABG Hemoglobin Oxyhemoglobin Sodium Potassium Chloride Carbon Dioxide BUN Creatinine Glucose POC Glucose Lactic Acid 3.30 H* Calcium Ionized Calcium Phosphorus Magnesium 1.40 L Total Bilirubin AST ALT Alkaline Phosphatase Ammonia 98.0 H Total Creatine Kinase CK-MB (CK-2) CK-MB (CK-2) Rel Index Total Protein Albumin Urine WBC (Auto) Salicylates Acetaminophen Plasma/Serum Alcohol 11/24/19 11/25/19 11/25/19 05:22 04:34 05:05 WBC 17.3 H RBC 2.88 L Hgb 7.8 L Hct 24.6 L MCH 27 L RDW 18.5 H Plt Count Lymph % (Auto) 7.7 L [place] % (Auto) 9.7 H [place] # 1.7 H Seg Neutrophils % 82.2 H Seg Neuts % (Manual) Lymphocytes % (Manual) Seg Neutrophils # 14.2 H Seg Neutrophils # Man Lymphocytes # (Manual) Monocytes # (Manual) PT INR APTT ABG pH 7.475 H ABG pO2 ABG HCO3 29.4 H 32.3 H ABG O2 Saturation ABG Base Excess 5.4 H 6.9 H ABG Hemoglobin 9.0 L 10.6 L Oxyhemoglobin 94.3 L Sodium Potassium Chloride Carbon Dioxide BUN Creatinine Glucose POC Glucose Lactic Acid Calcium Ionized Calcium Phosphorus Magnesium Total Bilirubin AST ALT Alkaline Phosphatase Ammonia Total Creatine Kinase CK-MB (CK-2) CK-MB (CK-2) Rel Index Total Protein Albumin Urine WBC (Auto) Salicylates Acetaminophen Plasma/Serum Alcohol 11/25/19 11/25/19 11/26/19 05:05 22:46 03:31 WBC RBC Hgb Hct MCH RDW Plt Count Lymph % (Auto) [place] % (Auto) [place] # Seg Neutrophils % Seg Neuts % (Manual) Lymphocytes % (Manual) Seg Neutrophils # Seg Neutrophils # Man Lymphocytes # (Manual) Monocytes # (Manual) PT INR APTT ABG pH 7.459 H ABG pO2 ABG HCO3 34.2 H ABG O2 Saturation ABG Base Excess 9.4 H ABG Hemoglobin 7.6 L Oxyhemoglobin 94.8 L Sodium 152 H D 147 H Potassium 2.3 L* D 2.8 L* D Chloride 107.8 H Carbon Dioxide 31 H D 33 H BUN Creatinine 0.6 L 0.6 L Glucose 148 H 177 H POC Glucose Lactic Acid Calcium Ionized Calcium Phosphorus Magnesium Total Bilirubin AST 105 H ALT 71 H Alkaline Phosphatase 155 H Ammonia Total Creatine Kinase CK-MB (CK-2) CK-MB (CK-2) Rel Index Total Protein 5.2 L D Albumin 2.9 L Urine WBC (Auto) Salicylates Acetaminophen Plasma/Serum Alcohol 11/26/19 11/26/19 11/27/19 08:24 08:24 04:20 WBC 12.0 H RBC 3.00 L Hgb 8.0 L 9.3 L Hct 25.9 L 29.7 L MCH 27 L RDW 18.5 H Plt Count Lymph % (Auto) [place] % (Auto) [place] # Seg Neutrophils % Seg Neuts % (Manual) 89.0 H Lymphocytes % (Manual) 4.0 L Seg Neutrophils # Seg Neutrophils # Man 10.7 H Lymphocytes # (Manual) 0.5 L Monocytes # (Manual) PT INR APTT ABG pH ABG pO2 ABG HCO3 ABG O2 Saturation ABG Base Excess ABG Hemoglobin Oxyhemoglobin Sodium 146 H Potassium 3.4 L D Chloride Carbon Dioxide BUN Creatinine 0.5 L Glucose 165 H POC Glucose Lactic Acid Calcium Ionized Calcium Phosphorus Magnesium Total Bilirubin AST 57 H ALT Alkaline Phosphatase 166 H Ammonia Total Creatine Kinase CK-MB (CK-2) CK-MB (CK-2) Rel Index Total Protein Albumin 2.9 L Urine WBC (Auto) Salicylates Acetaminophen Plasma/Serum Alcohol 11/27/19 11/27/19 11/27/19 04:28 04:28 04:42 WBC RBC Hgb Hct MCH RDW Plt Count Lymph % (Auto) [place] % (Auto) [place] # Seg Neutrophils % Seg Neuts % (Manual) Lymphocytes % (Manual) Seg Neutrophils # Seg Neutrophils # Man Lymphocytes # (Manual) Monocytes # (Manual) PT INR APTT ABG pH 7.470 H ABG pO2 74.0 L ABG HCO3 33.8 H ABG O2 Saturation ABG Base Excess 9.1 H ABG Hemoglobin 8.7 L Oxyhemoglobin 94.7 L Sodium 146 H Potassium 2.9 L* Chloride Carbon Dioxide BUN 25 H Creatinine Glucose 213 H POC Glucose Lactic Acid Calcium Ionized Calcium Phosphorus 1.00 L Magnesium Total Bilirubin AST ALT Alkaline Phosphatase Ammonia Total Creatine Kinase CK-MB (CK-2) CK-MB (CK-2) Rel Index Total Protein Albumin Urine WBC (Auto) Salicylates Acetaminophen Plasma/Serum Alcohol 11/27/19 11/27/19 11/27/19 05:37 12:20 15:46 WBC RBC Hgb Hct MCH RDW Plt Count Lymph % (Auto) [place] % (Auto) [place] # Seg Neutrophils % Seg Neuts % (Manual) Lymphocytes % (Manual) Seg Neutrophils # Seg Neutrophils # Man Lymphocytes # (Manual) Monocytes # (Manual) PT INR APTT ABG pH ABG pO2 ABG HCO3 ABG O2 Saturation ABG Base Excess ABG Hemoglobin Oxyhemoglobin Sodium 146 H Potassium 3.5 L D Chloride Carbon Dioxide BUN 24 H Creatinine 0.6 L Glucose 187 H POC Glucose 117 H 220 H Lactic Acid Calcium Ionized Calcium Phosphorus Magnesium Total Bilirubin AST ALT Alkaline Phosphatase Ammonia Total Creatine Kinase CK-MB (CK-2) CK-MB (CK-2) Rel Index Total Protein Albumin Urine WBC (Auto) Salicylates Acetaminophen Plasma/Serum Alcohol 11/27/19 11/28/19 11/28/19 17:28 05:00 05:02 WBC RBC Hgb Hct MCH RDW Plt Count Lymph % (Auto) [place] % (Auto) [place] # Seg Neutrophils % Seg Neuts % (Manual) Lymphocytes % (Manual) Seg Neutrophils # Seg Neutrophils # Man Lymphocytes # (Manual) Monocytes # (Manual) PT INR APTT ABG pH ABG pO2 72.4 L ABG HCO3 33.6 H ABG O2 Saturation 94.1 L ABG Base Excess 7.3 H ABG Hemoglobin Oxyhemoglobin 91.8 L Sodium 146 H Potassium 3.3 L Chloride Carbon Dioxide BUN 25 H Creatinine 0.6 L Glucose 176 H POC Glucose 198 H Lactic Acid Calcium Ionized Calcium Phosphorus Magnesium Total Bilirubin AST ALT Alkaline Phosphatase Ammonia Total Creatine Kinase CK-MB (CK-2) CK-MB (CK-2) Rel Index Total Protein Albumin Urine WBC (Auto) Salicylates Acetaminophen Plasma/Serum Alcohol 11/28/19 11/28/19 11/29/19 05:02 18:55 10:43 WBC 15.2 H 19.0 H RBC 3.06 L 3.01 L Hgb 8.3 L 8.3 L Hct 27.0 L 26.4 L MCH 27 L RDW 19.0 H 19.7 H Plt Count 479 H 611 H Lymph % (Auto) [place] % (Auto) [place] # Seg Neutrophils % Seg Neuts % (Manual) 92.0 H Lymphocytes % (Manual) 2.0 L Seg Neutrophils # Seg Neutrophils # Man 14.0 H Lymphocytes # (Manual) 0.3 L Monocytes # (Manual) PT INR APTT ABG pH ABG pO2 ABG HCO3 ABG O2 Saturation ABG Base Excess ABG Hemoglobin Oxyhemoglobin Sodium Potassium Chloride Carbon Dioxide BUN Creatinine Glucose POC Glucose 138 H Lactic Acid Calcium Ionized Calcium Phosphorus Magnesium Total Bilirubin AST ALT Alkaline Phosphatase Ammonia Total Creatine Kinase CK-MB (CK-2) CK-MB (CK-2) Rel Index Total Protein Albumin Urine WBC (Auto) Salicylates Acetaminophen Plasma/Serum Alcohol 11/29/19 11/29/19 11/29/19 10:43 12:27 19:25 WBC RBC Hgb Hct MCH RDW Plt Count Lymph % (Auto) [place] % (Auto) [place] # Seg Neutrophils % Seg Neuts % (Manual) Lymphocytes % (Manual) Seg Neutrophils # Seg Neutrophils # Man Lymphocytes # (Manual) Monocytes # (Manual) PT INR APTT ABG pH ABG pO2 ABG HCO3 ABG O2 Saturation ABG Base Excess ABG Hemoglobin Oxyhemoglobin Sodium Potassium 2.8 L* Chloride Carbon Dioxide BUN 20 H Creatinine 0.5 L Glucose 121 H POC Glucose 128 H 120 H Lactic Acid Calcium Ionized Calcium Phosphorus Magnesium Total Bilirubin AST ALT Alkaline Phosphatase Ammonia Total Creatine Kinase CK-MB (CK-2) CK-MB (CK-2) Rel Index Total Protein Albumin Urine WBC (Auto) Salicylates Acetaminophen Plasma/Serum Alcohol 11/29/19 11/30/19 11/30/19 23:46 04:10 05:02 WBC RBC Hgb Hct MCH RDW Plt Count Lymph % (Auto) [place] % (Auto) [place] # Seg Neutrophils % Seg Neuts % (Manual) Lymphocytes % (Manual) Seg Neutrophils # Seg Neutrophils # Man Lymphocytes # (Manual) Monocytes # (Manual) PT INR APTT ABG pH ABG pO2 76.3 L ABG HCO3 32.5 H ABG O2 Saturation ABG Base Excess 6.9 H ABG Hemoglobin 8.0 L Oxyhemoglobin 92.6 L Sodium Potassium Chloride Carbon Dioxide BUN Creatinine Glucose POC Glucose 116 H 128 H Lactic Acid Calcium Ionized Calcium Phosphorus Magnesium Total Bilirubin AST ALT Alkaline Phosphatase Ammonia Total Creatine Kinase CK-MB (CK-2) CK-MB (CK-2) Rel Index Total Protein Albumin Urine WBC (Auto) Salicylates Acetaminophen Plasma/Serum Alcohol 11/30/19 11/30/19 05:25 05:25 WBC 18.4 H RBC 3.10 L Hgb 8.5 L Hct 27.5 L MCH 27 L RDW 20.9 H Plt Count 691 H Lymph % (Auto) 7.1 L [place] % (Auto) 7.7 H [place] # 1.4 H Seg Neutrophils % 83.4 H Seg Neuts % (Manual) Lymphocytes % (Manual) Seg Neutrophils # 15.4 H Seg Neutrophils # Man Lymphocytes # (Manual) Monocytes # (Manual) PT INR APTT ABG pH ABG pO2 ABG HCO3 ABG O2 Saturation ABG Base Excess ABG Hemoglobin Oxyhemoglobin Sodium 146 H Potassium Chloride 107.2 H Carbon Dioxide BUN Creatinine 0.5 L Glucose 132 H POC Glucose Lactic Acid Calcium Ionized Calcium Phosphorus Magnesium Total Bilirubin AST 246 H ALT 274 H Alkaline Phosphatase 203 H Ammonia Total Creatine Kinase CK-MB (CK-2) CK-MB (CK-2) Rel Index Total Protein 5.4 L Albumin 2.9 L Urine WBC (Auto) Salicylates Acetaminophen Plasma/Serum Alcohol Chest x-ray: pending (none today) Allied health notes reviewed: nursing
--- NOTE | 2019-11-30 12:47 | Progress Note ---
Assessment and Plan Cultures: 11/22/2019 urine culture:no significant growth 11/22/2019 tracheal aspirate culture: H. influenzae 11/23/2019 blood culture: No growth A/P: 54-year-old female with hypertension, depression, tobacco use, alcohol abuse was brought into the emergency room on 11/22/2019 after she went into respiratory arrest at home requiring CPR by EMS: #Sepsis: Source could be UTI versus pneumonitis versus SBP. UA showed pyuria. RUQ US showed no ascites. Completed 7 days of Ceftriaxone on 11/29/2019. #Pneumonitis, acute respiratory failure: Possibly aspiration. No pneumonia seen. On mechanical ventilation. #Elevated LFTs, alcohol abuse, status post arrest requiring CPR: Trend LFTs. RUQ US showed no ascites. #Acute encephalopathy: Likely multifactorial from alcohol abuse, status post arrest, electrolyte abnormalities. #Diarrhea: likely combination of tube feeds and lactulose. Recs: continue off abx trend CBC and LFTs overall guarded prognosis Isaías Aaron MD, FACP [facility] ([facility] C: [phone] O: [phone] F: [phone] Subjective Date of service: 11/30/19 Principal diagnosis: Ac cardiopulmonary arrest; Ac hypoxemic resp failure; Acute encephalopathy Interval history: Patient remains afebrile, mental status also remains unchanged. Remains on the vent. Not following any commands. Objective - Exam Narrative Exam: Physical Exam: Constitutional: comatose, intubated Head, Ears, Nose: Normocephalic, atraumatic. External ears, nose normal Eyes: Conjunctivae/corneas clear. No icterus. No ptosis. Neck: intubated Oral: intubated Cardiovascular: S1, S2 normal Respiratory: Good air entry, clear to auscultation bilaterally GI: slightly distended, bowel sounds present. Rectal tube present with liquid stool Musculoskeletal: No pedal edema, no cyanosis. Skin: No rash or abscess Hem/Lymphatic: No palpable cervical or supraclavicular nodes. No lymphangitis Psych: no agitation. Neurological: comatose, intubated, on vent - Constitutional Vitals: Vital Signs Temp Pulse Resp BP Pulse Ox 98.9 F 107 H 15 114/68 96 11/30/19 08:00 11/30/19 11:40 11/30/19 11:00 11/30/19 11:40 11/30/19 11:40 Temperature -Last 24 Hours Temperature 98.9 F Temperature 99.2 F Temperature 98.9 F Temperature 98.2 F Temperature 99.0 F - Labs CBC & Chem 7: 11/30/19 05:25 11/30/19 05:25 Labs: Abnormal lab results 11/29/19 11/29/19 11/30/19 Range/Units 19:25 23:46 04:10 WBC (4.5-11.0) K/mm3 RBC (3.65-5.03) M/mm3 Hgb (10.1-14.3) gm/dl Hct (30.3-42.9) % MCH (28-32) pg RDW (13.2-15.2) % Plt Count (140-440) K/mm3 Lymph % (Auto) (13.4-35.0) % [place] % (Auto) (0.0-7.3) % [place] # (0.0-0.8) K/mm3 Seg Neutrophils % (40.0-70.0) % Seg Neutrophils # (1.8-7.7) K/mm3 ABG pO2 76.3 L (80.0-90.0) mm Hg ABG HCO3 32.5 H (20.0-26.0) mmol/L ABG Base Excess 6.9 H (-2.0-3.0) mmol/L ABG Hemoglobin 8.0 L (12.0-16.0) gm/dl Oxyhemoglobin 92.6 L (95.0-99.0) % Sodium (137-145) mmol/L Chloride (98-107) mmol/L Creatinine (0.7-1.2) mg/dL Glucose (65-100) mg/dL POC Glucose 120 H 116 H (70-105) AST (5-40) units/L ALT (7-56) units/L Alkaline Phosphatase (35-129) units/L Total Protein (6.3-8.2) g/dL Albumin (3.9-5) g/dL 11/30/19 11/30/19 11/30/19 Range/Units 05:02 05:25 05:25 WBC 18.4 H (4.5-11.0) K/mm3 RBC 3.10 L (3.65-5.03) M/mm3 Hgb 8.5 L (10.1-14.3) gm/dl Hct 27.5 L (30.3-42.9) % MCH 27 L (28-32) pg RDW 20.9 H (13.2-15.2) % Plt Count 691 H (140-440) K/mm3 Lymph % (Auto) 7.1 L (13.4-35.0) % [place] % (Auto) 7.7 H (0.0-7.3) % [place] # 1.4 H (0.0-0.8) K/mm3 Seg Neutrophils % 83.4 H (40.0-70.0) % Seg Neutrophils # 15.4 H (1.8-7.7) K/mm3 ABG pO2 (80.0-90.0) mm Hg ABG HCO3 (20.0-26.0) mmol/L ABG Base Excess (-2.0-3.0) mmol/L ABG Hemoglobin (12.0-16.0) gm/dl Oxyhemoglobin (95.0-99.0) % Sodium 146 H (137-145) mmol/L Chloride 107.2 H (98-107) mmol/L Creatinine 0.5 L (0.7-1.2) mg/dL Glucose 132 H (65-100) mg/dL POC Glucose 128 H (70-105) AST 246 H (5-40) units/L ALT 274 H (7-56) units/L Alkaline Phosphatase 203 H (35-129) units/L Total Protein 5.4 L (6.3-8.2) g/dL Albumin 2.9 L (3.9-5) g/dL
[2019-11-30] MEDS: fentaNYL DRIP Premix 2,000 MCG/100 ML BAG IV SCH ×2 (14:18→23:01)
[2019-11-30] MEDS ORDERED: QUEtiapine 200 MG TAB PO ONE (15:00)
--- NOTE | 2019-11-30 15:16 | Progress Note ---
Assessment and Plan Patient is a 54-year-old woman with a history of hypertension, depression, alcohol abuse, who presented with cardiac arrest. According patient's clinical findings, it is likely that she has had anoxic brain injury secondary to cardiac arrest. Plan: 1. Anoxic brain injury: CT head: No acute abnormality. -EEG: Generalized slowing. No seizures or epileptiform activity. Patient found to have intact corneal/VOR/cough reflexes, and is withdrawing and lower extremities, therefore patient is not found to be brain . However, given that patient had an out of hospital cardiac arrest, the time of which is uncertain, the likelihood of meaningful neurological recovery is somewhat low. -Discussed prognosis with patient's mother. Family meeting took place on 11/29/2019, and options for further care were discussed. Family will decide and get back to us in regards to their decision of what they would like to do next. - Cont. keppra 500mg BID for seizure prophylaxis. -Continue supportive care per primary team. -Patient will require further examination once sedation is completely held. - Will sign off, as I am not covering neurology service over the weekend. Please consult neurologist covering the service over the weekend for further neurologic monitoring and management. Thank you for allowing me to take part in the care of this patient. Oliver Randhawa MD Neurology Subjective Date of service: 11/30/19 Principal diagnosis: Ac cardiopulmonary arrest; Ac hypoxemic resp failure; Acute encephalopathy Interval history: No acute events overnight. Objective - Exam Narrative Exam: Patient is intubated, and comatose. Pupils bilaterally 3 mm and reactive to light. Intact corneal/VOR/cough reflexes. Withdraws bilaterally in lower extremities but not upper extremities. 2+ reflexes throughout. - Vital Sign Vital Signs - 12hr 11/30/19 11/30/19 11/30/19 03:27 03:30 04:00 Temperature 99.2 F Pulse Rate 101 H 104 H Pulse Rate [ 97 H From Monitor] Respiratory 15 15 Rate Blood Pressure 125/80 115/71 O2 Sat by Pulse 98 98 Oximetry 11/30/19 11/30/19 11/30/19 04:30 05:00 05:30 Temperature Pulse Rate 102 H 105 H 105 H Pulse Rate [ From Monitor] Respiratory 15 13 16 Rate Blood Pressure 131/85 116/76 119/76 O2 Sat by Pulse 98 98 98 Oximetry 0311/30/19 11/30/19 06:00 06:30 07:00 Temperature Pulse Rate 105 H 110 H 109 H Pulse Rate [ From Monitor] Respiratory 20 26 H 17 Rate Blood Pressure 123/77 116/80 118/75 O2 Sat by Pulse 98 97 99 Oximetry 11/30/19 11/30/19 11/30/19 07:30 08:00 08:30 Temperature 98.9 F Pulse Rate 105 H 106 H 111 H Pulse Rate [ 97 H From Monitor] Respiratory 15 11 L 20 Rate Blood Pressure 119/79 128/82 102/65 O2 Sat by Pulse 99 99 99 Oximetry 11/30/19 11/30/19 11/30/19 09:00 09:08 09:30 Temperature Pulse Rate 111 H 111 H 108 H Pulse Rate [ From Monitor] Respiratory 20 15 Rate Blood Pressure 117/77 117/77 117/73 O2 Sat by Pulse 97 97 97 Oximetry 11/30/19 11/30/19 11/30/19 10:00 10:30 11:00 Temperature Pulse Rate 106 H 105 H 102 H Pulse Rate [ From Monitor] Respiratory 16 12 15 Rate Blood Pressure 111/68 110/68 116/72 O2 Sat by Pulse 96 97 99 Oximetry 11/30/19 11/30/19 11/30/19 11:30 11:40 12:00 Temperature Pulse Rate 102 H 107 H 104 H Pulse Rate [ 101 H From Monitor] Respiratory 15 15 Rate Blood Pressure 114/68 114/68 106/65 O2 Sat by Pulse 99 96 97 Oximetry 11/30/19 11/30/19 11/30/19 12:30 13:00 13:30 Temperature Pulse Rate 105 H 102 H 102 H Pulse Rate [ From Monitor] Respiratory 13 28 H 16 Rate Blood Pressure 113/70 117/73 113/70 O2 Sat by Pulse 98 98 97 Oximetry 11/30/19 14:00 Temperature Pulse Rate 100 H Pulse Rate [ From Monitor] Respiratory 20 Rate Blood Pressure 118/73 O2 Sat by Pulse 98 Oximetry - General Apperance Constitutional: acutely ill - EENT EENT: ATNC, PERRL, mucous membranes moist - Respiratory Respiratory: decreased breath sounds - Cardiovascular Cardiovascular: regular rate, normal S1, normal S2 Extremities: no clubbing, cyanosis, no inflammation - Gastrointestinal Gastrointestinal: normoactive bowel sounds, soft, non-tender - Laboratory Findings CBC and BMP: 11/30/19 05:25 11/30/19 05:25 Abnormal Lab Findings: Abnormal Labs 11/22/19 11/22/19 11/22/19 23:17 23:18 23:27 WBC 21.2 H RBC 3.59 L Hgb 9.8 L Hct MCH 27 L RDW 18.6 H Plt Count 454 H Lymph % (Auto) [place] % (Auto) [place] # Seg Neutrophils % Seg Neuts % (Manual) 86.0 H Lymphocytes % (Manual) 9.0 L Seg Neutrophils # Seg Neutrophils # Man 18.2 H Lymphocytes # (Manual) Monocytes # (Manual) 1.1 H PT INR APTT ABG pH ABG pO2 ABG HCO3 ABG O2 Saturation ABG Base Excess ABG Hemoglobin Oxyhemoglobin Sodium Potassium Chloride Carbon Dioxide BUN Creatinine Glucose POC Glucose 53 L Lactic Acid Calcium Ionized Calcium Phosphorus Magnesium Total Bilirubin AST ALT Alkaline Phosphatase Ammonia Total Creatine Kinase CK-MB (CK-2) CK-MB (CK-2) Rel Index Total Protein Albumin Urine WBC (Auto) 40.0 H Salicylates Acetaminophen Plasma/Serum Alcohol 11/22/19 11/22/19 11/22/19 23:27 23:27 23:27 WBC RBC Hgb Hct MCH RDW Plt Count Lymph % (Auto) [place] % (Auto) [place] # Seg Neutrophils % Seg Neuts % (Manual) Lymphocytes % (Manual) Seg Neutrophils # Seg Neutrophils # Man Lymphocytes # (Manual) Monocytes # (Manual) PT INR APTT ABG pH ABG pO2 ABG HCO3 ABG O2 Saturation ABG Base Excess ABG Hemoglobin Oxyhemoglobin Sodium Potassium 2.4 L* Chloride 85.1 L Carbon Dioxide 19 L BUN Creatinine 0.5 L Glucose 261 H POC Glucose Lactic Acid Calcium Ionized Calcium Phosphorus Magnesium Total Bilirubin AST 609 H ALT 152 H Alkaline Phosphatase 160 H Ammonia 117.0 H Total Creatine Kinase 139 H CK-MB (CK-2) 8.3 H CK-MB (CK-2) Rel Index 5.9 H Total Protein Albumin 3.6 L Urine WBC (Auto) Salicylates < 0.3 L Acetaminophen Plasma/Serum Alcohol 11/22/19 11/22/19 11/23/19 23:27 23:27 01:10 WBC RBC Hgb Hct MCH RDW Plt Count Lymph % (Auto) [place] % (Auto) [place] # Seg Neutrophils % Seg Neuts % (Manual) Lymphocytes % (Manual) Seg Neutrophils # Seg Neutrophils # Man Lymphocytes # (Manual) Monocytes # (Manual) PT INR APTT ABG pH 7.273 L ABG pO2 209.7 H ABG HCO3 ABG O2 Saturation 99.2 H ABG Base Excess -3.9 L ABG Hemoglobin 10.6 L Oxyhemoglobin 93.9 L Sodium Potassium Chloride Carbon Dioxide BUN Creatinine Glucose POC Glucose Lactic Acid Calcium Ionized Calcium Phosphorus Magnesium Total Bilirubin AST ALT Alkaline Phosphatase Ammonia Total Creatine Kinase CK-MB (CK-2) CK-MB (CK-2) Rel Index Total Protein Albumin Urine WBC (Auto) Salicylates Acetaminophen < 5.0 L Plasma/Serum Alcohol 0.08 H 11/23/19 11/23/19 11/23/19 01:19 01:19 03:47 WBC RBC Hgb Hct MCH RDW Plt Count Lymph % (Auto) [place] % (Auto) [place] # Seg Neutrophils % Seg Neuts % (Manual) Lymphocytes % (Manual) Seg Neutrophils # Seg Neutrophils # Man Lymphocytes # (Manual) Monocytes # (Manual) PT 16.3 H INR 1.29 H APTT ABG pH ABG pO2 ABG HCO3 ABG O2 Saturation ABG Base Excess ABG Hemoglobin Oxyhemoglobin Sodium Potassium Chloride Carbon Dioxide BUN Creatinine Glucose POC Glucose Lactic Acid 2.10 H* 5.00 H* Calcium Ionized Calcium Phosphorus Magnesium Total Bilirubin AST ALT Alkaline Phosphatase Ammonia Total Creatine Kinase CK-MB (CK-2) CK-MB (CK-2) Rel Index Total Protein Albumin Urine WBC (Auto) Salicylates Acetaminophen Plasma/Serum Alcohol 11/23/19 11/23/19 11/23/19 03:47 03:47 04:53 WBC RBC Hgb 9.4 L Hct MCH RDW Plt Count Lymph % (Auto) [place] % (Auto) [place] # Seg Neutrophils % Seg Neuts % (Manual) Lymphocytes % (Manual) Seg Neutrophils # Seg Neutrophils # Man Lymphocytes # (Manual) Monocytes # (Manual) PT 17.0 H INR 1.36 H APTT 128.2 H* ABG pH ABG pO2 ABG HCO3 ABG O2 Saturation ABG Base Excess ABG Hemoglobin Oxyhemoglobin Sodium Potassium Chloride Carbon Dioxide 18 L BUN Creatinine 0.5 L Glucose 105 H POC Glucose Lactic Acid Calcium 8.3 L Ionized Calcium Phosphorus 2.40 L Magnesium Total Bilirubin 1.30 H AST 761 H ALT 158 H Alkaline Phosphatase 143 H Ammonia Total Creatine Kinase CK-MB (CK-2) CK-MB (CK-2) Rel Index Total Protein Albumin 2.8 L Urine WBC (Auto) Salicylates Acetaminophen Plasma/Serum Alcohol 11/23/19 11/23/19 11/23/19 05:12 06:32 06:32 WBC 16.8 H RBC 3.31 L Hgb 8.9 L Hct 28.7 L MCH 27 L RDW 18.6 H Plt Count Lymph % (Auto) [place] % (Auto) [place] # Seg Neutrophils % Seg Neuts % (Manual) 94.0 H Lymphocytes % (Manual) 1.0 L Seg Neutrophils # Seg Neutrophils # Man 15.8 H Lymphocytes # (Manual) 0.2 L Monocytes # (Manual) PT INR APTT ABG pH ABG pO2 ABG HCO3 ABG O2 Saturation ABG Base Excess -3.2 L ABG Hemoglobin 9.0 L Oxyhemoglobin 93.6 L Sodium Potassium Chloride Carbon Dioxide BUN Creatinine Glucose POC Glucose Lactic Acid Calcium Ionized Calcium 4.5 L Phosphorus Magnesium Total Bilirubin AST ALT Alkaline Phosphatase Ammonia Total Creatine Kinase CK-MB (CK-2) CK-MB (CK-2) Rel Index Total Protein Albumin Urine WBC (Auto) Salicylates Acetaminophen Plasma/Serum Alcohol 11/23/19 11/24/19 11/24/19 06:32 04:35 04:35 WBC RBC Hgb Hct MCH RDW Plt Count Lymph % (Auto) [place] % (Auto) [place] # Seg Neutrophils % Seg Neuts % (Manual) Lymphocytes % (Manual) Seg Neutrophils # Seg Neutrophils # Man Lymphocytes # (Manual) Monocytes # (Manual) PT INR APTT ABG pH ABG pO2 ABG HCO3 ABG O2 Saturation ABG Base Excess ABG Hemoglobin Oxyhemoglobin Sodium Potassium Chloride Carbon Dioxide BUN Creatinine Glucose POC Glucose Lactic Acid 3.30 H* Calcium Ionized Calcium Phosphorus Magnesium 1.40 L Total Bilirubin AST ALT Alkaline Phosphatase Ammonia 98.0 H Total Creatine Kinase CK-MB (CK-2) CK-MB (CK-2) Rel Index Total Protein Albumin Urine WBC (Auto) Salicylates Acetaminophen Plasma/Serum Alcohol 11/24/19 11/25/19 11/25/19 05:22 04:34 05:05 WBC 17.3 H RBC 2.88 L Hgb 7.8 L Hct 24.6 L MCH 27 L RDW 18.5 H Plt Count Lymph % (Auto) 7.7 L [place] % (Auto) 9.7 H [place] # 1.7 H Seg Neutrophils % 82.2 H Seg Neuts % (Manual) Lymphocytes % (Manual) Seg Neutrophils # 14.2 H Seg Neutrophils # Man Lymphocytes # (Manual) Monocytes # (Manual) PT INR APTT ABG pH 7.475 H ABG pO2 ABG HCO3 29.4 H 32.3 H ABG O2 Saturation ABG Base Excess 5.4 H 6.9 H ABG Hemoglobin 9.0 L 10.6 L Oxyhemoglobin 94.3 L Sodium Potassium Chloride Carbon Dioxide BUN Creatinine Glucose POC Glucose Lactic Acid Calcium Ionized Calcium Phosphorus Magnesium Total Bilirubin AST ALT Alkaline Phosphatase Ammonia Total Creatine Kinase CK-MB (CK-2) CK-MB (CK-2) Rel Index Total Protein Albumin Urine WBC (Auto) Salicylates Acetaminophen Plasma/Serum Alcohol 11/25/19 11/25/19 11/26/19 05:05 22:46 03:31 WBC RBC Hgb Hct MCH RDW Plt Count Lymph % (Auto) [place] % (Auto) [place] # Seg Neutrophils % Seg Neuts % (Manual) Lymphocytes % (Manual) Seg Neutrophils # Seg Neutrophils # Man Lymphocytes # (Manual) Monocytes # (Manual) PT INR APTT ABG pH 7.459 H ABG pO2 ABG HCO3 34.2 H ABG O2 Saturation ABG Base Excess 9.4 H ABG Hemoglobin 7.6 L Oxyhemoglobin 94.8 L Sodium 152 H D 147 H Potassium 2.3 L* D 2.8 L* D Chloride 107.8 H Carbon Dioxide 31 H D 33 H BUN Creatinine 0.6 L 0.6 L Glucose 148 H 177 H POC Glucose Lactic Acid Calcium Ionized Calcium Phosphorus Magnesium Total Bilirubin AST 105 H ALT 71 H Alkaline Phosphatase 155 H Ammonia Total Creatine Kinase CK-MB (CK-2) CK-MB (CK-2) Rel Index Total Protein 5.2 L D Albumin 2.9 L Urine WBC (Auto) Salicylates Acetaminophen Plasma/Serum Alcohol 11/26/19 11/26/19 11/27/19 08:24 08:24 04:20 WBC 12.0 H RBC 3.00 L Hgb 8.0 L 9.3 L Hct 25.9 L 29.7 L MCH 27 L RDW 18.5 H Plt Count Lymph % (Auto) [place] % (Auto) [place] # Seg Neutrophils % Seg Neuts % (Manual) 89.0 H Lymphocytes % (Manual) 4.0 L Seg Neutrophils # Seg Neutrophils # Man 10.7 H Lymphocytes # (Manual) 0.5 L Monocytes # (Manual) PT INR APTT ABG pH ABG pO2 ABG HCO3 ABG O2 Saturation ABG Base Excess ABG Hemoglobin Oxyhemoglobin Sodium 146 H Potassium 3.4 L D Chloride Carbon Dioxide BUN Creatinine 0.5 L Glucose 165 H POC Glucose Lactic Acid Calcium Ionized Calcium Phosphorus Magnesium Total Bilirubin AST 57 H ALT Alkaline Phosphatase 166 H Ammonia Total Creatine Kinase CK-MB (CK-2) CK-MB (CK-2) Rel Index Total Protein Albumin 2.9 L Urine WBC (Auto) Salicylates Acetaminophen Plasma/Serum Alcohol 11/27/19 11/27/19 11/27/19 04:28 04:28 04:42 WBC RBC Hgb Hct MCH RDW Plt Count Lymph % (Auto) [place] % (Auto) [place] # Seg Neutrophils % Seg Neuts % (Manual) Lymphocytes % (Manual) Seg Neutrophils # Seg Neutrophils # Man Lymphocytes # (Manual) Monocytes # (Manual) PT INR APTT ABG pH 7.470 H ABG pO2 74.0 L ABG HCO3 33.8 H ABG O2 Saturation ABG Base Excess 9.1 H ABG Hemoglobin 8.7 L Oxyhemoglobin 94.7 L Sodium 146 H Potassium 2.9 L* Chloride Carbon Dioxide BUN 25 H Creatinine Glucose 213 H POC Glucose Lactic Acid Calcium Ionized Calcium Phosphorus 1.00 L Magnesium Total Bilirubin AST ALT Alkaline Phosphatase Ammonia Total Creatine Kinase CK-MB (CK-2) CK-MB (CK-2) Rel Index Total Protein Albumin Urine WBC (Auto) Salicylates Acetaminophen Plasma/Serum Alcohol 11/27/19 11/27/19 11/27/19 05:37 12:20 15:46 WBC RBC Hgb Hct MCH RDW Plt Count Lymph % (Auto) [place] % (Auto) [place] # Seg Neutrophils % Seg Neuts % (Manual) Lymphocytes % (Manual) Seg Neutrophils # Seg Neutrophils # Man Lymphocytes # (Manual) Monocytes # (Manual) PT INR APTT ABG pH ABG pO2 ABG HCO3 ABG O2 Saturation ABG Base Excess ABG Hemoglobin Oxyhemoglobin Sodium 146 H Potassium 3.5 L D Chloride Carbon Dioxide BUN 24 H Creatinine 0.6 L Glucose 187 H POC Glucose 117 H 220 H Lactic Acid Calcium Ionized Calcium Phosphorus Magnesium Total Bilirubin AST ALT Alkaline Phosphatase Ammonia Total Creatine Kinase CK-MB (CK-2) CK-MB (CK-2) Rel Index Total Protein Albumin Urine WBC (Auto) Salicylates Acetaminophen Plasma/Serum Alcohol 11/27/19 11/28/19 11/28/19 17:28 05:00 05:02 WBC RBC Hgb Hct MCH RDW Plt Count Lymph % (Auto) [place] % (Auto) [place] # Seg Neutrophils % Seg Neuts % (Manual) Lymphocytes % (Manual) Seg Neutrophils # Seg Neutrophils # Man Lymphocytes # (Manual) Monocytes # (Manual) PT INR APTT ABG pH ABG pO2 72.4 L ABG HCO3 33.6 H ABG O2 Saturation 94.1 L ABG Base Excess 7.3 H ABG Hemoglobin Oxyhemoglobin 91.8 L Sodium 146 H Potassium 3.3 L Chloride Carbon Dioxide BUN 25 H Creatinine 0.6 L Glucose 176 H POC Glucose 198 H Lactic Acid Calcium Ionized Calcium Phosphorus Magnesium Total Bilirubin AST ALT Alkaline Phosphatase Ammonia Total Creatine Kinase CK-MB (CK-2) CK-MB (CK-2) Rel Index Total Protein Albumin Urine WBC (Auto) Salicylates Acetaminophen Plasma/Serum Alcohol 11/28/19 11/28/19 11/29/19 05:02 18:55 10:43 WBC 15.2 H 19.0 H RBC 3.06 L 3.01 L Hgb 8.3 L 8.3 L Hct 27.0 L 26.4 L MCH 27 L RDW 19.0 H 19.7 H Plt Count 479 H 611 H Lymph % (Auto) [place] % (Auto) [place] # Seg Neutrophils % Seg Neuts % (Manual) 92.0 H Lymphocytes % (Manual) 2.0 L Seg Neutrophils # Seg Neutrophils # Man 14.0 H Lymphocytes # (Manual) 0.3 L Monocytes # (Manual) PT INR APTT ABG pH ABG pO2 ABG HCO3 ABG O2 Saturation ABG Base Excess ABG Hemoglobin Oxyhemoglobin Sodium Potassium Chloride Carbon Dioxide BUN Creatinine Glucose POC Glucose 138 H Lactic Acid Calcium Ionized Calcium Phosphorus Magnesium Total Bilirubin AST ALT Alkaline Phosphatase Ammonia Total Creatine Kinase CK-MB (CK-2) CK-MB (CK-2) Rel Index Total Protein Albumin Urine WBC (Auto) Salicylates Acetaminophen Plasma/Serum Alcohol 11/29/19 11/29/19 11/29/19 10:43 12:27 19:25 WBC RBC Hgb Hct MCH RDW Plt Count Lymph % (Auto) [place] % (Auto) [place] # Seg Neutrophils % Seg Neuts % (Manual) Lymphocytes % (Manual) Seg Neutrophils # Seg Neutrophils # Man Lymphocytes # (Manual) Monocytes # (Manual) PT INR APTT ABG pH ABG pO2 ABG HCO3 ABG O2 Saturation ABG Base Excess ABG Hemoglobin Oxyhemoglobin Sodium Potassium 2.8 L* Chloride Carbon Dioxide BUN 20 H Creatinine 0.5 L Glucose 121 H POC Glucose 128 H 120 H Lactic Acid Calcium Ionized Calcium Phosphorus Magnesium Total Bilirubin AST ALT Alkaline Phosphatase Ammonia Total Creatine Kinase CK-MB (CK-2) CK-MB (CK-2) Rel Index Total Protein Albumin Urine WBC (Auto) Salicylates Acetaminophen Plasma/Serum Alcohol 11/29/19 11/30/19 11/30/19 23:46 04:10 05:02 WBC RBC Hgb Hct MCH RDW Plt Count Lymph % (Auto) [place] % (Auto) [place] # Seg Neutrophils % Seg Neuts % (Manual) Lymphocytes % (Manual) Seg Neutrophils # Seg Neutrophils # Man Lymphocytes # (Manual) Monocytes # (Manual) PT INR APTT ABG pH ABG pO2 76.3 L ABG HCO3 32.5 H ABG O2 Saturation ABG Base Excess 6.9 H ABG Hemoglobin 8.0 L Oxyhemoglobin 92.6 L Sodium Potassium Chloride Carbon Dioxide BUN Creatinine Glucose POC Glucose 116 H 128 H Lactic Acid Calcium Ionized Calcium Phosphorus Magnesium Total Bilirubin AST ALT Alkaline Phosphatase Ammonia Total Creatine Kinase CK-MB (CK-2) CK-MB (CK-2) Rel Index Total Protein Albumin Urine WBC (Auto) Salicylates Acetaminophen Plasma/Serum Alcohol 11/30/19 11/30/19 11/30/19 05:25 05:25 12:59 WBC 18.4 H RBC 3.10 L Hgb 8.5 L Hct 27.5 L MCH 27 L RDW 20.9 H Plt Count 691 H Lymph % (Auto) 7.1 L [place] % (Auto) 7.7 H [place] # 1.4 H Seg Neutrophils % 83.4 H Seg Neuts % (Manual) Lymphocytes % (Manual) Seg Neutrophils # 15.4 H Seg Neutrophils # Man Lymphocytes # (Manual) Monocytes # (Manual) PT INR APTT ABG pH ABG pO2 ABG HCO3 ABG O2 Saturation ABG Base Excess ABG Hemoglobin Oxyhemoglobin Sodium 146 H Potassium Chloride 107.2 H Carbon Dioxide BUN Creatinine 0.5 L Glucose 132 H POC Glucose 124 H Lactic Acid Calcium Ionized Calcium Phosphorus Magnesium Total Bilirubin AST 246 H ALT 274 H Alkaline Phosphatase 203 H Ammonia Total Creatine Kinase CK-MB (CK-2) CK-MB (CK-2) Rel Index Total Protein 5.4 L Albumin 2.9 L Urine WBC (Auto) Salicylates Acetaminophen Plasma/Serum Alcohol
--- NOTE | 2019-11-30 19:07 | Progress Note ---
Assessment and Plan Assessment and plan: The high probability of a clinically significant, sudden or life threatening deterioration of the [] system(s) required my full and direct attention, intervention and personal management. The aggregate critical care time was [] minutes. This time is in addition to time spent performing reported procedures but includes the following: [v] Data Review and interpretation cv Patient assessment and monitoring of vital signs [v]c Documentation [v] Medication orders and management Total Time Spent with Patient (Minutes): 32 - Patient Problems (1) Seizure disorder Current Visit: Yes Status: Acute Plan to address problem: Patient with seizure disorder no active seizure. Continue Keppra. (2) Alcohol abuse Current Visit: Yes Status: Acute Plan to address problem: History of alcohol abuse. Patient does not have delirium tremors. Requires restraints. (3) Cardiac arrest with successful resuscitation Current Visit: Yes Status: Acute Plan to address problem: Status post cardiorespiratory arrest. 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 Family meeting today. Wants everything done despite overall poor prognosis. Patient had intact corneal and cough reflex and withdrew lower extremities from pain. Unlikely however any meaningful recovery after extub ation. (4) Elevated LFTs Current Visit: Yes Status: Acute Plan to address problem: Ischemic hepatitis. Will follow trends of downtrending liver function test. Continue supportive care gentle hydration. (5) UTI (urinary tract infection) Current Visit: Yes Status: Acute Plan to address problem: Continue antibiotics Rocephin completed today. No growth. Will DC medication Rocephin. (6) HTN (hypertension) Current Visit: No Status: Acute Plan to address problem: Patient currently has optimal control of blood pressure. No changes in medical management. (7) Alcohol abuse Current Visit: Yes Status: Acute History Interval history: 54-year-old female with a history of hypertension tobacco abuse alcoholic abuse was found down in the field status post cardiorespiratory arrest. EMS arrived begin CPR. Patient presented to the hospital in acute respiratory distress. Further evaluation revealed high suspicion for anoxic brain injury. Patient hospital course complicated by further respiratory failure and inability to wean patient. Hospitalist Physical - Constitutional Vitals: Temp Pulse Resp BP Pulse Ox 98.6 F 104 H 15 105/67 97 11/30/19 16:00 11/30/19 17:00 11/30/19 17:00 11/30/19 17:00 11/30/19 17:00 General appearance: Present: no acute distress, other (on vent with sedation, elderly female) - Neck Neck: Present: supple, normal ROM. Absent: enlarged thyroid, masses or JVD, cervical LAD - Respiratory Respiratory: bilateral: diminished, wheezing - Cardiovascular Rhythm: regular Heart Sounds: Present: S1 & S2 - Extremities Extremities: no ischemia, pulses intact, pulses symmetrical Peripheral Pulses: within normal limits - Abdominal General gastrointestinal: soft, non-tender, non-distended, hypoactive bowel sounds - Neurologic Neurologic: focal deficits Results - Labs CBC & Chem 7: 11/30/19 05:25 11/30/19 05:25 Labs: Laboratory Last Values WBC 18.4 K/mm3 (4.5-11.0) H 11/30/19 05:25 RBC 3.10 M/mm3 (3.65-5.03) L 11/30/19 05:25 Hgb 8.5 gm/dl (10.1-14.3) L 11/30/19 05:25 Hct 27.5 % (30.3-42.9) L 11/30/19 05:25 MCV 89 fl (79-97) 11/30/19 05:25 MCH 27 pg (28-32) L 11/30/19 05:25 MCHC 31 % (30-34) 11/30/19 05:25 RDW 20.9 % (13.2-15.2) H 11/30/19 05:25 Plt Count 691 K/mm3 (140-440) H 11/30/19 05:25 Lymph % (Auto) 7.1 % (13.4-35.0) L 11/30/19 05:25 [place] % (Auto) 7.7 % (0.0-7.3) H 11/30/19 05:25 Eos % (Auto) 1.5 % (0.0-4.3) 11/30/19 05:25 Baso % (Auto) 0.3 % (0.0-1.8) 11/30/19 05:25 Lymph # 1.3 K/mm3 (1.2-5.4) 11/30/19 05:25 [place] # 1.4 K/mm3 (0.0-0.8) H 11/30/19 05:25 Eos # 0.3 K/mm3 (0.0-0.4) 11/30/19 05:25 Baso # 0.0 K/mm3 (0.0-0.1) 11/30/19 05:25 Add Manual Diff Complete 11/28/19 05:02 Total Counted 100 11/28/19 05:02 Seg Neutrophils % 83.4 % (40.0-70.0) H 11/30/19 05:25 Seg Neuts % (Manual) 92.0 % (40.0-70.0) H 11/28/19 05:02 Band Neutrophils % 2.0 % 11/28/19 05:02 Lymphocytes % (Manual) 2.0 % (13.4-35.0) L 11/28/19 05:02 Reactive Lymphs % (Man) 0 % 11/28/19 05:02 Monocytes % (Manual) 4.0 % (0.0-7.3) 11/28/19 05:02 Eosinophils % (Manual) 0 % (0.0-4.3) 11/28/19 05:02 Basophils % (Manual) 0 % (0.0-1.8) 11/28/19 05:02 Metamyelocytes % 0 % 11/28/19 05:02 Myelocytes % 0 % 11/28/19 05:02 Promyelocytes % 0 % 11/28/19 05:02 Blast Cells % 0 % 11/28/19 05:02 Nucleated RBC % Not Reportable 11/28/19 05:02 Seg Neutrophils # 15.4 K/mm3 (1.8-7.7) H 11/30/19 05:25 Seg Neutrophils # Man 14.0 K/mm3 (1.8-7.7) H 11/28/19 05:02 Band Neutrophils # 0.3 K/mm3 11/28/19 05:02 Lymphocytes # (Manual) 0.3 K/mm3 (1.2-5.4) L 11/28/19 05:02 Abs React Lymphs (Man) 0.0 K/mm3 11/28/19 05:02 Monocytes # (Manual) 0.6 K/mm3 (0.0-0.8) 11/28/19 05:02 Eosinophils # (Manual) 0.0 K/mm3 (0.0-0.4) 11/28/19 05:02 Basophils # (Manual) 0.0 K/mm3 (0.0-0.1) 11/28/19 05:02 Metamyelocytes # 0.0 K/mm3 11/28/19 05:02 Myelocytes # 0.0 K/mm3 11/28/19 05:02 Promyelocytes # 0.0 K/mm3 11/28/19 05:02 Blast Cells # 0.0 K/mm3 11/28/19 05:02 WBC Morphology Not Reportable 11/28/19 05:02 Hypersegmented Neuts Not Reportable 11/28/19 05:02 Hyposegmented Neuts Not Reportable 11/28/19 05:02 Hypogranular Neuts Not Reportable 11/28/19 05:02 Smudge Cells Not Reportable 11/28/19 05:02 Toxic Granulation Not Reportable 11/28/19 05:02 Toxic Vacuolation Not Reportable 11/28/19 05:02 Dohle Bodies Not Reportable 11/28/19 05:02 Pelger-Huet Anomaly Not Reportable 11/28/19 05:02 Dominique Rods Not Reportable 11/28/19 05:02 Platelet Estimate Consistent w auto 11/28/19 05:02 Clumped Platelets Not Reportable 11/28/19 05:02 Plt Clumps, EDTA Not Reportable 11/28/19 05:02 Large Platelets Not Reportable 11/28/19 05:02 Giant Platelets Not Reportable 11/28/19 05:02 Platelet Satelliting Not Reportable 11/28/19 05:02 Plt Morphology Comment Not Reportable 11/28/19 05:02 RBC Morphology Not Reportable 11/28/19 05:02 Dimorphic RBCs Not Reportable 11/28/19 05:02 Polychromasia Not Reportable 11/28/19 05:02 Hypochromasia Not Reportable 11/28/19 05:02 Poikilocytosis Not Reportable 11/28/19 05:02 Anisocytosis Few 11/28/19 05:02 Microcytosis Rare 11/28/19 05:02 Macrocytosis Not Reportable 11/28/19 05:02 Spherocytes Not Reportable 11/28/19 05:02 Pappenheimer Bodies Not Reportable 11/28/19 05:02 Sickle Cells Not Reportable 11/28/19 05:02 Target Cells Not Reportable 11/28/19 05:02 Tear Drop Cells Rare 11/28/19 05:02 Ovalocytes Not Reportable 11/28/19 05:02 Helmet Cells Not Reportable 11/28/19 05:02 [place] Bodies Not Reportable 11/28/19 05:02 [place]win Rings Not Reportable 11/28/19 05:02 Jamshid Cells Not Reportable 11/28/19 05:02 Bite Cells Not Reportable 11/28/19 05:02 Crenated Cell Not Reportable 11/28/19 05:02 Elliptocytes Not Reportable 11/28/19 05:02 Acanthocytes (Spur) Not Reportable 11/28/19 05:02 Rouleaux Not Reportable 11/28/19 05:02 Hemoglobin C Crystals Not Reportable 11/28/19 05:02 Schistocytes Not Reportable 11/28/19 05:02 Malaria parasites Not Reportable 11/28/19 05:02 Gregg Bodies Not Reportable 11/28/19 05:02 Hem Pathologist Commnt No 11/28/19 05:02 PT 17.0 Sec. (12.2-14.9) H 11/23/19 03:47 INR 1.36 (0.87-1.13) H 11/23/19 03:47 APTT 128.2 Sec. (24.2-36.6) H* 11/23/19 03:47 Heparin Anti-Xa Level 0.31 U.I./ml (0.3-0.7) 11/23/19 09:03 ABG pH 7.402 pH Units (7.350-7.450) 11/30/19 04:10 ABG pCO2 53.5 mm Hg 11/30/19 04:10 ABG pO2 76.3 mm Hg (80.0-90.0) L 11/30/19 04:10 ABG HCO3 32.5 mmol/L (20.0-26.0) H 11/30/19 04:10 ABG O2 Saturation 95.0 % (95.0-99.0) 11/30/19 04:10 ABG O2 Content 10.6 (0.0-44) 11/30/19 04:10 ABG Base Excess 6.9 mmol/L (-2.0-3.0) H 11/30/19 04:10 ABG Hemoglobin 8.0 gm/dl (12.0-16.0) L 11/30/19 04:10 ABG Carboxyhemoglobin 2.0 % (0.0-5.0) 11/30/19 04:10 ABG Methemoglobin 0.5 % (0.0-1.5) 11/30/19 04:10 Oxyhemoglobin 92.6 % (95.0-99.0) L 11/30/19 04:10 FiO2 30 % 11/30/19 04:10 Sodium 146 mmol/L (137-145) H 11/30/19 05:25 Potassium 5.0 mmol/L (3.6-5.0) D 11/30/19 05:25 Chloride 107.2 mmol/L (98-107) H 11/30/19 05:25 Carbon Dioxide 25 mmol/L (22-30) 11/30/19 05:25 Anion Gap 19 mmol/L 11/30/19 05:25 BUN 16 mg/dL (7-17) 11/30/19 05:25 Creatinine 0.5 mg/dL (0.7-1.2) L 11/30/19 05:25 Estimated GFR > 60 ml/min 11/30/19 05:25 BUN/Creatinine Ratio 32 % 11/30/19 05:25 Glucose 132 mg/dL (65-100) H 11/30/19 05:25 POC Glucose 113 (70-105) H 11/30/19 17:53 Lactic Acid 1.80 mmol/L (0.7-2.0) 11/25/19 05:05 Calcium 9.4 mg/dL (8.4-10.2) 11/30/19 05:25 Ionized Calcium 4.5 mg/dL (4.8-5.6) L 11/23/19 06:32 Phosphorus 4.20 mg/dL (2.5-4.5) D 11/28/19 08:59 Magnesium 2.30 mg/dL (1.7-2.3) 11/29/19 13:41 Total Bilirubin 0.30 mg/dL (0.1-1.2) 11/30/19 05:25 AST 246 units/L (5-40) H 11/30/19 05:25 ALT 274 units/L (7-56) H 11/30/19 05:25 Alkaline Phosphatase 203 units/L (35-129) H 11/30/19 05:25 Ammonia 42.0 umol/L (25-60) 11/29/19 13:41 Total Creatine Kinase 139 units/L (30-135) H 11/22/19 23:27 CK-MB (CK-2) 8.3 ng/mL (0.0-4.0) H 11/22/19 23:27 CK-MB (CK-2) Rel Index 5.9 (0-4) H 11/22/19 23:27 Troponin T < 0.010 ng/mL (0.00-0.029) 11/22/19 23:27 Total Protein 5.4 g/dL (6.3-8.2) L 11/30/19 05:25 Albumin 2.9 g/dL (3.9-5) L 11/30/19 05:25 Albumin/Globulin Ratio 1.2 % 11/30/19 05:25 Lipase 18 units/L (13-60) 11/23/19 00:34 Procalcitonin 1.09 ng/mL (<0.15) 11/23/19 04:53 Urine Color Yellow (Yellow) 11/22/19 23:17 Urine Turbidity Cloudy (Clear) 11/22/19 23:17 Urine pH 6.0 (5.0-7.0) 11/22/19 23:17 Ur Specific [place] 1.010 (1.003-1.030) 11/22/19 23:17 Urine Protein >500 mg/dL (Negative) 11/22/19 23:17 Urine Glucose (UA) >=500 mg/dL (Negative) 11/22/19 23:17 Urine Ketones 20 mg/dL (Negative) 11/22/19 23:17 Urine Blood Mod (Negative) 11/22/19 23:17 Urine Nitrite Neg (Negative) 11/22/19 23:17 Urine Bilirubin Neg (Negative) 11/22/19 23:17 Urine Urobilinogen 4.0 mg/dL (<2.0) 11/22/19 23:17 Ur Leukocyte Esterase Neg (Negative) 11/22/19 23:17 Urine WBC (Auto) 40.0 /HPF (0.0-6.0) H 11/22/19 23:17 Urine RBC (Auto) 10.0 /HPF (0.0-6.0) 11/22/19 23:17 U Epithel Cells (Auto) 1.0 /HPF (0-13.0) 11/22/19 23:17 Urine Bacteria (Auto) 2+ /HPF (Negative) 11/22/19 23:17 Urine Mucus Few /HPF 11/22/19 23:17 Salicylates < 0.3 mg/dL (2.8-20.0) L 11/22/19 23:27 Urine Opiates Screen Presumptive negative 11/22/19 23:17 Urine Methadone Screen Presumptive negative 11/22/19 23:17 Acetaminophen < 5.0 ug/mL (10.0-30.0) L 11/22/19 23:27 Ur Barbiturates Screen Presumptive negative 11/22/19 23:17 Ur Phencyclidine Scrn Presumptive negative 11/22/19 23:17 Ur Amphetamines Screen Presumptive negative 11/22/19 23:17 U Benzodiazepines Scrn Presumptive negative 11/22/19 23:17 Urine Cocaine Screen Presumptive negative 11/22/19 23:17 U Marijuana (THC) Screen Presumptive negative 11/22/19 23:17 Drugs of Abuse Note Disclamer 11/22/19 23:17 Plasma/Serum Alcohol 0.08 % (0-0.07) H 11/22/19 23:27 Hepatitis A IgM Ab Non-reactive (NonReactive) 11/23/19 01:19 Hep Bs Antigen Non-reactive (Negative) 11/23/19 01:19 Hep B Core IgM Ab Non-reactive (NonReactive) 11/23/19 01:19 Hepatitis C Antibody Non-reactive (NonReactive) 11/23/19 01:19 - Imaging and Cardiology Chest x-ray: report reviewed, image reviewed CT scan - chest: report reviewed, image reviewed CT Scan - head: image reviewed [place]/IV: Voiding Method External Female Catheter IV Catheter Type [Right Wrist] Peripheral IV IV Catheter Type [Left Wrist] Peripheral IV IV Catheter Type [Left Peripheral IV Antecubital] IV Catheter Type [Right INT / Saline Lock Forearm] IV Catheter Type [Left Hand] Peripheral IV Active Medications - Current Medications Current Medications: Generic Name Dose Route Start Last Admin Trade Name Freq PRN Reason Stop Dose Admin Lipase/Protease/Amylase 1 each 11/23/19 11:[address] 10,500 Unit FEEDTUBE PRN PRN For Clogged Feeding Tube Chlordiazepoxide HCl 25 mg 11/28/19 14:00 11/30/19 14:19 Librium PO 25 mg Q8H LUCHO Administration Fentanyl 50 mcg 11/28/19 15:26 Sublimaze IV Q10MIN PRN ANALGESIA Heparin Sodium (Porcine) 5,000 unit 11/23/19 22:00 11/30/19 10:53 Heparin SUB-Q 5,000 unit Q12HR LUCHO Administration Hydralazine HCl 10 mg 11/24/19 00:45 11/28/19 08:56 Apresoline IV 10 mg Q6H PRN Administration SBP > 160 Hydrophilic Ointment 1 applic 11/22/19 23:23 Vaseline Lip Therapy TP Q2HR PRN Dry Lips Fentanyl Citrate 2,000 mcg in 100 mls @ 2.74 mls/hr 11/28/19 16:00 11/30/19 14:18 Fentanyl Drip Premix IV 1 mcg/kg/hr TITR LUCHO 2.74 mls/hr Administration Protocol 1 MCG/KG/HR Lansoprazole 30 mg 11/27/19 10:00 11/30/19 10:53 Prevacid Solutab FEEDTUBE 30 mg QDAY LUCHO Administration Levetiracetam 500 mg 11/29/19 10:00 11/30/19 10:53 Keppra PO 500 mg BID LUCHO Administration Lorazepam 2 mg 11/26/19 11:09 11/28/19 15:08 Ativan IV 2 mg Q4H PRN Administration Agitation Multi-Ingred Cream/Lotion/Oil/Oint 1 applic 11/22/19 23:23 Artificial Tears Ophth Oint OU Q4HR PRN Dry Eye(s) Quetiapine Fumarate 300 mg 11/30/19 22:00 Seroquel PO BID LUCHO Simple Syrup 15 ml 11/23/19 11:50 Simple Syrup FEEDTUBE PRN PRN Hypoglycemia Simple Syrup 30 ml 11/23/19 11:50 Simple Syrup FEEDTUBE PRN PRN Hypoglycemia Sodium Bicarbonate 325 mg 11/23/19 11:50 Sodium Bicarbonate FEEDTUBE PRN PRN For Clogged Feeding Tube Nutrition/Malnutrition Assess - Dietary Evaluation Nutrition/Malnutrition Findings: Nutrition Notes Start: 11/23/19 11:29 Freq: Status: Active Protocol: Document 11/28/19 10:27 LM (Rec: 11/28/19 10:35 LM [id number]) Nutrition Notes Initial or Follow up Reassessment Current Diagnosis Hypertension Other Pertinent Diagnosis Cardaic arrest, ETOH dependence, UTI Current Diet Vital AF 1.2 at 50 ml/hr Labs/Tests Na 146 K 3.3 BUN 25 Cr 0.6 Pertinent Medications Reviewed Height 5 ft 6 in Weight 54.8 kg [place] Body Weight (kg) 59.09 BMI 19.5 Subjective/Other Information TF restarted. Pt tolerating TF at 50 ml/hr. Percent of energy/protein needs met: 100%/100% Burn Absent Trauma Absent GI Symptoms None Current % PO Negligible Minimum of two criteria No Muscle Mass Mild Depletion (non-severe) #1 Nutrition Diagnosis Inadequate oral intake Diagnosis Progress(for reassessment Continues documentation) Is patient on ventilator? Yes Is Patient Ambulatory and/or Out of Bed No REE-([facility]-confined to bed) 1402.224 Calculation Used for Recommendations [facility] Additional Notes Protein: 66-110g (1.2-2g/kg) Fluid: 1 ml/kcal Nutrition Intervention Change Diet Order: TF Nutrition Support: Vital AF 1.2 at 50 ml/hr Flush 200 ml q4h for hypernatremia Flush 80 ml q4h once hypernatremia resolves Kcal 1,440 Protein (gm) 90 Fluid (mL) 973 Goal #1 TF tolerance Goal #2 Meet at least 80% of energy and protein needs via TF Anticipated Discharge Needs: unable to determine at this time Follow-Up By: 12/05/19 Additional Comments F/U for TF tolerance
[2019-12-01 05:41] LABS: ABG HCO3 34.1 mmol/L (20.0-26.0); ABG Methemoglobin 0.5 % (0.0-1.5); ABG Oxygen Saturation 97.3 % (95.0-99.0); ABG PH 7.434 pH Units (7.350-7.450); ABG PO2 68.6 mm Hg (80.0-90.0)
[2019-12-01] MEDS: chlordiazePOXIDE 25 MG CAP PO SCH ×3 (06:48→21:14)
[2019-12-01 08:58] LABS: BUN/Creatinine Ratio 34; Blood Urea Nitrogen 17 mg/dL (7-17); Calcium 9.4 mg/dL (8.4-10.2); Hemolysis Index 6
[2019-12-01 09:44] LABS: Hematocrit 25.2 % (30.3-42.9); Hemoglobin 7.9 gm/dl (10.1-14.3); Mean Corpuscular HGB Conc 31 % (30-34); Mean Corpuscular Volume 88 fl (79-97); Platelet Count 732 K/mm3 (140-440); Red Blood Count 2.88 M/mm3 (3.65-5.03)
[2019-12-01 10:52] LABS: Basophils % (Manual) 0 % (0.0-1.8); Eosinophils % (Manual) 0 % (0.0-4.3); Total Cells Counted 100
[2019-12-01 10:54] LABS: Hypochromasia Few; Target Cells 1+
[2019-12-01 10:55] LABS: Giant Platelets Few; Platelet Estimate Consistent w Auto
[2019-12-01] MEDS: LANSOPRAZOLE 30 MG SOLUTAB FEEDTUBE SCH (10:58)
[2019-12-01] MEDS: HEPARIN 5,000 UNIT/1 ML VIAL SUB-Q SCH ×2 (10:58→21:14)
[2019-12-01] MEDS: QUEtiapine 100 MG TAB PO SCH ×2 (10:58→21:14)
[2019-12-01] MEDS: levETIRAcetam 500 MG/5 ML ORAL LIQD PO SCH ×2 (10:58→21:14)
--- NOTE | 2019-12-01 16:27 | Progress Note ---
Assessment and Plan Acute cardiopulmonary arrest with ROSC Acute hypoxemic respiratory failure on MVS Acute metabolic-toxic encephalopathy Metabolic acidosis/alcoholic acidosis/Lactic acidosis Ischemic hepatitis Leucocytosis with lactic acidosis Tobacco use disorder ALcohol use Disorder Hypokalemia High grade fevers (Had family meeting with daughter, mother and sister in attendance; explained poor prognostic signs for neurologic recovery and likely need for trach & PEG + assistance with ADL's) - continue Seroquel for tentative delirium and to spare IV sedation (Agitation improved today) - get ABG after 2 hours on PSV - continue empiric Antibiotics per ID recommendations; de-escalate based on HILARIO /sensitivities / clinical progress - CIWA protocol - rest opn AC mode qhs for now - VAP bundle addressed (continue aspiration precautions, HOB>40) - ontinue daily SAT's and assessment for readiness for SBT (For PSV trial today) - Continue Intermittent sedation until patient's neurologic state can be better evaluated - begin Seroquel for agitation / to spare IV sedatives - Continue VTE and Stress ulcer prophylaxis - Continue enteric nutritional support. Monitor glycemic control, with target blood glucose 140-180 mg/dL while critically ill (Avoid hypoglycemia) - Continue daily SAT assessment as tolerated - Continue to wean supplemental oxygen for target O2 sat's > 90% - ABG and CXR prn - continue bronchodilators with p[ulmonary hygiene per RT - Continue to trend leukocytosis and lactic acidosis - Continue to treat for hepatic encephalopathy- especially with elevated ammonia levels- lactulose - Continue thiamine, multivitamin and electrolyte replacement - Continue to avoid nephrotoxins, adjust all medications fro GFR and CrCL - Continue bronchodilators with pulmonary hygiene - Continue to avoid benzodiazepines , as much as possible, to reduce the possibility of delirium - Continue prn analgesia per CPOT score - Continue to maintain of sleep-wake cycle, avoid delirium - PT/OT/ROM exercises- awaiting PT/OT evaluation - Continue mobility protocol and skin assessment per protocol for pressure ulcer prevention - Continue to monitor for clinical seizures - Continue Nicotine withdrawal precautions, alcohol withdrawal precautions - continue other care per attending / other consultants ..... re-eval;uate in am & prn CONDITION: CRITICAL PROGNOSIS: GUARDED CODE STATUS: FULL CODE The high probability of a clinically significant, sudden or life-threatening deterioration of the [respiratory, cardiovascular,GI/hepatology] system(s) required my full and direct attention, intervention and personal management. The aggregate critical care time was [32] minutes without overlap. Time includes spent on; [x] Data Review and interpretation [x] Patient assessment and monitoring of vital signs [x] Documentation [x] Medication orders and management Subjective Date of service: 12/01/19 Principal diagnosis: Ac cardiopulmonary arrest; Ac hypoxemic resp failure; Acute encephalopathy Interval history: Patient is seen today for: Acute cardiopulmonary arrest with ROSC; Acute hypoxemic respiratory failure; Acute metabolic-toxic encephalopathy; Ischemic hepatitis; Leucocytosis with lactic acidosis; Tobacco use disorder; Alcohol use Disorder; Hypokalemia; High grade fevers Seen and examined at bedside; 24hour events reviewed; nursing and respiratory care staff consulted; no adverse overnight events reported to me; resting peacefully in bed; AMS is persistent but opens eyes to name calling; placed on SBT at bedside and tolerating well so far Objective Vital Signs - 12hr 12/01/19 12/01/19 12/01/19 04:30 05:00 05:30 Pulse Rate 109 H 111 H 112 H Respiratory 16 15 15 Rate Blood Pressure 124/85 138/88 140/90 O2 Sat by Pulse 98 99 97 Oximetry 12/01/19 12/01/19 12/01/19 06:00 06:30 07:42 Pulse Rate 111 H 110 H 110 H Respiratory 17 11 L Rate Blood Pressure 133/85 106/66 106/66 O2 Sat by Pulse 98 92 92 Oximetry 12/01/19 12/01/19 12:00 15:29 Pulse Rate 110 H 110 H Respiratory Rate Blood Pressure 106/66 112/71 O2 Sat by Pulse 94 96 Oximetry Constitutional: no acute distress, other (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, orally intuabted ETT at 23 cm at the lip to mVS, no dys-synchrony) Eyes: non-icteric ENT: oropharynx moist, other (ETT 23 cm AMALIA) Neck: supple, no lymphadenopathy, no JVD Effort: mildly labored Ascultation: Bilateral: diminished breath sounds, rhonchi Percussion: Bilateral: not dull Cardiovascular: regular rate and rhythm (tachycardia), other (S1,S2) Gastrointestinal: normoactive bowel sounds, soft, non-tender, non-distended Integumentary: normal Extremities: no cyanosis, no edema, pulses normal, no ischemia or petechiae Neurologic: unable to assess, other (awake but not tracking voice ) Psychiatric: other (Psychiatric: Unable to assess) CBC and BMP: 12/01/19 08:23 12/01/19 08:23 ABG, PT/INR, D-dimer: ABG ABG pH 7.434 pH Units (7.350-7.450) 12/01/19 05:33 ABG pCO2 52.0 mm Hg 12/01/19 05:33 ABG pO2 68.6 mm Hg (80.0-90.0) L 12/01/19 05:33 ABG O2 Saturation 97.3 % (95.0-99.0) 12/01/19 05:33 PT/INR, D-dimer PT 17.0 Sec. (12.2-14.9) H 11/23/19 03:47 INR 1.36 (0.87-1.13) H 11/23/19 03:47 Abnormal lab findings: Abnormal Labs 11/22/19 11/22/19 11/22/19 23:17 23:18 23:27 WBC 21.2 H RBC 3.59 L Hgb 9.8 L Hct MCH 27 L RDW 18.6 H Plt Count 454 H Lymph % (Auto) [place] % (Auto) [place] # Seg Neutrophils % Seg Neuts % (Manual) 86.0 H Lymphocytes % (Manual) 9.0 L Seg Neutrophils # Seg Neutrophils # Man 18.2 H Lymphocytes # (Manual) Monocytes # (Manual) 1.1 H PT INR APTT ABG pH ABG pO2 ABG HCO3 ABG O2 Saturation ABG Base Excess ABG Hemoglobin Oxyhemoglobin Sodium Potassium Chloride Carbon Dioxide BUN Creatinine Glucose POC Glucose 53 L Lactic Acid Calcium Ionized Calcium Phosphorus Magnesium Total Bilirubin AST ALT Alkaline Phosphatase Ammonia Total Creatine Kinase CK-MB (CK-2) CK-MB (CK-2) Rel Index Total Protein Albumin Urine WBC (Auto) 40.0 H Salicylates Acetaminophen Plasma/Serum Alcohol 11/22/19 11/22/19 11/22/19 23:27 23:27 23:27 WBC RBC Hgb Hct MCH RDW Plt Count Lymph % (Auto) [place] % (Auto) [place] # Seg Neutrophils % Seg Neuts % (Manual) Lymphocytes % (Manual) Seg Neutrophils # Seg Neutrophils # Man Lymphocytes # (Manual) Monocytes # (Manual) PT INR APTT ABG pH ABG pO2 ABG HCO3 ABG O2 Saturation ABG Base Excess ABG Hemoglobin Oxyhemoglobin Sodium Potassium 2.4 L* Chloride 85.1 L Carbon Dioxide 19 L BUN Creatinine 0.5 L Glucose 261 H POC Glucose Lactic Acid Calcium Ionized Calcium Phosphorus Magnesium Total Bilirubin AST 609 H ALT 152 H Alkaline Phosphatase 160 H Ammonia 117.0 H Total Creatine Kinase 139 H CK-MB (CK-2) 8.3 H CK-MB (CK-2) Rel Index 5.9 H Total Protein Albumin 3.6 L Urine WBC (Auto) Salicylates < 0.3 L Acetaminophen Plasma/Serum Alcohol 11/22/19 11/22/19 11/23/19 23:27 23:27 01:10 WBC RBC Hgb Hct MCH RDW Plt Count Lymph % (Auto) [place] % (Auto) [place] # Seg Neutrophils % Seg Neuts % (Manual) Lymphocytes % (Manual) Seg Neutrophils # Seg Neutrophils # Man Lymphocytes # (Manual) Monocytes # (Manual) PT INR APTT ABG pH 7.273 L ABG pO2 209.7 H ABG HCO3 ABG O2 Saturation 99.2 H ABG Base Excess -3.9 L ABG Hemoglobin 10.6 L Oxyhemoglobin 93.9 L Sodium Potassium Chloride Carbon Dioxide BUN Creatinine Glucose POC Glucose Lactic Acid Calcium Ionized Calcium Phosphorus Magnesium Total Bilirubin AST ALT Alkaline Phosphatase Ammonia Total Creatine Kinase CK-MB (CK-2) CK-MB (CK-2) Rel Index Total Protein Albumin Urine WBC (Auto) Salicylates Acetaminophen < 5.0 L Plasma/Serum Alcohol 0.08 H 11/23/19 11/23/19 11/23/19 01:19 01:19 03:47 WBC RBC Hgb Hct MCH RDW Plt Count Lymph % (Auto) [place] % (Auto) [place] # Seg Neutrophils % Seg Neuts % (Manual) Lymphocytes % (Manual) Seg Neutrophils # Seg Neutrophils # Man Lymphocytes # (Manual) Monocytes # (Manual) PT 16.3 H INR 1.29 H APTT ABG pH ABG pO2 ABG HCO3 ABG O2 Saturation ABG Base Excess ABG Hemoglobin Oxyhemoglobin Sodium Potassium Chloride Carbon Dioxide BUN Creatinine Glucose POC Glucose Lactic Acid 2.10 H* 5.00 H* Calcium Ionized Calcium Phosphorus Magnesium Total Bilirubin AST ALT Alkaline Phosphatase Ammonia Total Creatine Kinase CK-MB (CK-2) CK-MB (CK-2) Rel Index Total Protein Albumin Urine WBC (Auto) Salicylates Acetaminophen Plasma/Serum Alcohol 11/23/19 11/23/19 11/23/19 03:47 03:47 04:53 WBC RBC Hgb 9.4 L Hct MCH RDW Plt Count Lymph % (Auto) [place] % (Auto) [place] # Seg Neutrophils % Seg Neuts % (Manual) Lymphocytes % (Manual) Seg Neutrophils # Seg Neutrophils # Man Lymphocytes # (Manual) Monocytes # (Manual) PT 17.0 H INR 1.36 H APTT 128.2 H* ABG pH ABG pO2 ABG HCO3 ABG O2 Saturation ABG Base Excess ABG Hemoglobin Oxyhemoglobin Sodium Potassium Chloride Carbon Dioxide 18 L BUN Creatinine 0.5 L Glucose 105 H POC Glucose Lactic Acid Calcium 8.3 L Ionized Calcium Phosphorus 2.40 L Magnesium Total Bilirubin 1.30 H AST 761 H ALT 158 H Alkaline Phosphatase 143 H Ammonia Total Creatine Kinase CK-MB (CK-2) CK-MB (CK-2) Rel Index Total Protein Albumin 2.8 L Urine WBC (Auto) Salicylates Acetaminophen Plasma/Serum Alcohol 11/23/19 11/23/19 11/23/19 05:12 06:32 06:32 WBC 16.8 H RBC 3.31 L Hgb 8.9 L Hct 28.7 L MCH 27 L RDW 18.6 H Plt Count Lymph % (Auto) [place] % (Auto) [place] # Seg Neutrophils % Seg Neuts % (Manual) 94.0 H Lymphocytes % (Manual) 1.0 L Seg Neutrophils # Seg Neutrophils # Man 15.8 H Lymphocytes # (Manual) 0.2 L Monocytes # (Manual) PT INR APTT ABG pH ABG pO2 ABG HCO3 ABG O2 Saturation ABG Base Excess -3.2 L ABG Hemoglobin 9.0 L Oxyhemoglobin 93.6 L Sodium Potassium Chloride Carbon Dioxide BUN Creatinine Glucose POC Glucose Lactic Acid Calcium Ionized Calcium 4.5 L Phosphorus Magnesium Total Bilirubin AST ALT Alkaline Phosphatase Ammonia Total Creatine Kinase CK-MB (CK-2) CK-MB (CK-2) Rel Index Total Protein Albumin Urine WBC (Auto) Salicylates Acetaminophen Plasma/Serum Alcohol 11/23/19 11/24/19 11/24/19 06:32 04:35 04:35 WBC RBC Hgb Hct MCH RDW Plt Count Lymph % (Auto) [place] % (Auto) [place] # Seg Neutrophils % Seg Neuts % (Manual) Lymphocytes % (Manual) Seg Neutrophils # Seg Neutrophils # Man Lymphocytes # (Manual) Monocytes # (Manual) PT INR APTT ABG pH ABG pO2 ABG HCO3 ABG O2 Saturation ABG Base Excess ABG Hemoglobin Oxyhemoglobin Sodium Potassium Chloride Carbon Dioxide BUN Creatinine Glucose POC Glucose Lactic Acid 3.30 H* Calcium Ionized Calcium Phosphorus Magnesium 1.40 L Total Bilirubin AST ALT Alkaline Phosphatase Ammonia 98.0 H Total Creatine Kinase CK-MB (CK-2) CK-MB (CK-2) Rel Index Total Protein Albumin Urine WBC (Auto) Salicylates Acetaminophen Plasma/Serum Alcohol 11/24/19 11/25/19 11/25/19 05:22 04:34 05:05 WBC 17.3 H RBC 2.88 L Hgb 7.8 L Hct 24.6 L MCH 27 L RDW 18.5 H Plt Count Lymph % (Auto) 7.7 L [place] % (Auto) 9.7 H [place] # 1.7 H Seg Neutrophils % 82.2 H Seg Neuts % (Manual) Lymphocytes % (Manual) Seg Neutrophils # 14.2 H Seg Neutrophils # Man Lymphocytes # (Manual) Monocytes # (Manual) PT INR APTT ABG pH 7.475 H ABG pO2 ABG HCO3 29.4 H 32.3 H ABG O2 Saturation ABG Base Excess 5.4 H 6.9 H ABG Hemoglobin 9.0 L 10.6 L Oxyhemoglobin 94.3 L Sodium Potassium Chloride Carbon Dioxide BUN Creatinine Glucose POC Glucose Lactic Acid Calcium Ionized Calcium Phosphorus Magnesium Total Bilirubin AST ALT Alkaline Phosphatase Ammonia Total Creatine Kinase CK-MB (CK-2) CK-MB (CK-2) Rel Index Total Protein Albumin Urine WBC (Auto) Salicylates Acetaminophen Plasma/Serum Alcohol 11/25/19 11/25/19 11/26/19 05:05 22:46 03:31 WBC RBC Hgb Hct MCH RDW Plt Count Lymph % (Auto) [place] % (Auto) [place] # Seg Neutrophils % Seg Neuts % (Manual) Lymphocytes % (Manual) Seg Neutrophils # Seg Neutrophils # Man Lymphocytes # (Manual) Monocytes # (Manual) PT INR APTT ABG pH 7.459 H ABG pO2 ABG HCO3 34.2 H ABG O2 Saturation ABG Base Excess 9.4 H ABG Hemoglobin 7.6 L Oxyhemoglobin 94.8 L Sodium 152 H D 147 H Potassium 2.3 L* D 2.8 L* D Chloride 107.8 H Carbon Dioxide 31 H D 33 H BUN Creatinine 0.6 L 0.6 L Glucose 148 H 177 H POC Glucose Lactic Acid Calcium Ionized Calcium Phosphorus Magnesium Total Bilirubin AST 105 H ALT 71 H Alkaline Phosphatase 155 H Ammonia Total Creatine Kinase CK-MB (CK-2) CK-MB (CK-2) Rel Index Total Protein 5.2 L D Albumin 2.9 L Urine WBC (Auto) Salicylates Acetaminophen Plasma/Serum Alcohol 11/26/19 11/26/19 11/27/19 08:24 08:24 04:20 WBC 12.0 H RBC 3.00 L Hgb 8.0 L 9.3 L Hct 25.9 L 29.7 L MCH 27 L RDW 18.5 H Plt Count Lymph % (Auto) [place] % (Auto) [place] # Seg Neutrophils % Seg Neuts % (Manual) 89.0 H Lymphocytes % (Manual) 4.0 L Seg Neutrophils # Seg Neutrophils # Man 10.7 H Lymphocytes # (Manual) 0.5 L Monocytes # (Manual) PT INR APTT ABG pH ABG pO2 ABG HCO3 ABG O2 Saturation ABG Base Excess ABG Hemoglobin Oxyhemoglobin Sodium 146 H Potassium 3.4 L D Chloride Carbon Dioxide BUN Creatinine 0.5 L Glucose 165 H POC Glucose Lactic Acid Calcium Ionized Calcium Phosphorus Magnesium Total Bilirubin AST 57 H ALT Alkaline Phosphatase 166 H Ammonia Total Creatine Kinase CK-MB (CK-2) CK-MB (CK-2) Rel Index Total Protein Albumin 2.9 L Urine WBC (Auto) Salicylates Acetaminophen Plasma/Serum Alcohol 11/27/19 11/27/19 11/27/19 04:28 04:28 04:42 WBC RBC Hgb Hct MCH RDW Plt Count Lymph % (Auto) [place] % (Auto) [place] # Seg Neutrophils % Seg Neuts % (Manual) Lymphocytes % (Manual) Seg Neutrophils # Seg Neutrophils # Man Lymphocytes # (Manual) Monocytes # (Manual) PT INR APTT ABG pH 7.470 H ABG pO2 74.0 L ABG HCO3 33.8 H ABG O2 Saturation ABG Base Excess 9.1 H ABG Hemoglobin 8.7 L Oxyhemoglobin 94.7 L Sodium 146 H Potassium 2.9 L* Chloride Carbon Dioxide BUN 25 H Creatinine Glucose 213 H POC Glucose Lactic Acid Calcium Ionized Calcium Phosphorus 1.00 L Magnesium Total Bilirubin AST ALT Alkaline Phosphatase Ammonia Total Creatine Kinase CK-MB (CK-2) CK-MB (CK-2) Rel Index Total Protein Albumin Urine WBC (Auto) Salicylates Acetaminophen Plasma/Serum Alcohol 11/27/19 11/27/19 11/27/19 05:37 12:20 15:46 WBC RBC Hgb Hct MCH RDW Plt Count Lymph % (Auto) [place] % (Auto) [place] # Seg Neutrophils % Seg Neuts % (Manual) Lymphocytes % (Manual) Seg Neutrophils # Seg Neutrophils # Man Lymphocytes # (Manual) Monocytes # (Manual) PT INR APTT ABG pH ABG pO2 ABG HCO3 ABG O2 Saturation ABG Base Excess ABG Hemoglobin Oxyhemoglobin Sodium 146 H Potassium 3.5 L D Chloride Carbon Dioxide BUN 24 H Creatinine 0.6 L Glucose 187 H POC Glucose 117 H 220 H Lactic Acid Calcium Ionized Calcium Phosphorus Magnesium Total Bilirubin AST ALT Alkaline Phosphatase Ammonia Total Creatine Kinase CK-MB (CK-2) CK-MB (CK-2) Rel Index Total Protein Albumin Urine WBC (Auto) Salicylates Acetaminophen Plasma/Serum Alcohol 11/27/19 11/28/19 11/28/19 17:28 05:00 05:02 WBC RBC Hgb Hct MCH RDW Plt Count Lymph % (Auto) [place] % (Auto) [place] # Seg Neutrophils % Seg Neuts % (Manual) Lymphocytes % (Manual) Seg Neutrophils # Seg Neutrophils # Man Lymphocytes # (Manual) Monocytes # (Manual) PT INR APTT ABG pH ABG pO2 72.4 L ABG HCO3 33.6 H ABG O2 Saturation 94.1 L ABG Base Excess 7.3 H ABG Hemoglobin Oxyhemoglobin 91.8 L Sodium 146 H Potassium 3.3 L Chloride Carbon Dioxide BUN 25 H Creatinine 0.6 L Glucose 176 H POC Glucose 198 H Lactic Acid Calcium Ionized Calcium Phosphorus Magnesium Total Bilirubin AST ALT Alkaline Phosphatase Ammonia Total Creatine Kinase CK-MB (CK-2) CK-MB (CK-2) Rel Index Total Protein Albumin Urine WBC (Auto) Salicylates Acetaminophen Plasma/Serum Alcohol 11/28/19 11/28/19 11/29/19 05:02 18:55 10:43 WBC 15.2 H 19.0 H RBC 3.06 L 3.01 L Hgb 8.3 L 8.3 L Hct 27.0 L 26.4 L MCH 27 L RDW 19.0 H 19.7 H Plt Count 479 H 611 H Lymph % (Auto) [place] % (Auto) [place] # Seg Neutrophils % Seg Neuts % (Manual) 92.0 H Lymphocytes % (Manual) 2.0 L Seg Neutrophils # Seg Neutrophils # Man 14.0 H Lymphocytes # (Manual) 0.3 L Monocytes # (Manual) PT INR APTT ABG pH ABG pO2 ABG HCO3 ABG O2 Saturation ABG Base Excess ABG Hemoglobin Oxyhemoglobin Sodium Potassium Chloride Carbon Dioxide BUN Creatinine Glucose POC Glucose 138 H Lactic Acid Calcium Ionized Calcium Phosphorus Magnesium Total Bilirubin AST ALT Alkaline Phosphatase Ammonia Total Creatine Kinase CK-MB (CK-2) CK-MB (CK-2) Rel Index Total Protein Albumin Urine WBC (Auto) Salicylates Acetaminophen Plasma/Serum Alcohol 11/29/19 11/29/19 11/29/19 10:43 12:27 19:25 WBC RBC Hgb Hct MCH RDW Plt Count Lymph % (Auto) [place] % (Auto) [place] # Seg Neutrophils % Seg Neuts % (Manual) Lymphocytes % (Manual) Seg Neutrophils # Seg Neutrophils # Man Lymphocytes # (Manual) Monocytes # (Manual) PT INR APTT ABG pH ABG pO2 ABG HCO3 ABG O2 Saturation ABG Base Excess ABG Hemoglobin Oxyhemoglobin Sodium Potassium 2.8 L* Chloride Carbon Dioxide BUN 20 H Creatinine 0.5 L Glucose 121 H POC Glucose 128 H 120 H Lactic Acid Calcium Ionized Calcium Phosphorus Magnesium Total Bilirubin AST ALT Alkaline Phosphatase Ammonia Total Creatine Kinase CK-MB (CK-2) CK-MB (CK-2) Rel Index Total Protein Albumin Urine WBC (Auto) Salicylates Acetaminophen Plasma/Serum Alcohol 11/29/19 11/30/19 11/30/19 23:46 04:10 05:02 WBC RBC Hgb Hct MCH RDW Plt Count Lymph % (Auto) [place] % (Auto) [place] # Seg Neutrophils % Seg Neuts % (Manual) Lymphocytes % (Manual) Seg Neutrophils # Seg Neutrophils # Man Lymphocytes # (Manual) Monocytes # (Manual) PT INR APTT ABG pH ABG pO2 76.3 L ABG HCO3 32.5 H ABG O2 Saturation ABG Base Excess 6.9 H ABG Hemoglobin 8.0 L Oxyhemoglobin 92.6 L Sodium Potassium Chloride Carbon Dioxide BUN Creatinine Glucose POC Glucose 116 H 128 H Lactic Acid Calcium Ionized Calcium Phosphorus Magnesium Total Bilirubin AST ALT Alkaline Phosphatase Ammonia Total Creatine Kinase CK-MB (CK-2) CK-MB (CK-2) Rel Index Total Protein Albumin Urine WBC (Auto) Salicylates Acetaminophen Plasma/Serum Alcohol 11/30/19 11/30/19 11/30/19 05:25 05:25 12:59 WBC 18.4 H RBC 3.10 L Hgb 8.5 L Hct 27.5 L MCH 27 L RDW 20.9 H Plt Count 691 H Lymph % (Auto) 7.1 L [place] % (Auto) 7.7 H [place] # 1.4 H Seg Neutrophils % 83.4 H Seg Neuts % (Manual) Lymphocytes % (Manual) Seg Neutrophils # 15.4 H Seg Neutrophils # Man Lymphocytes # (Manual) Monocytes # (Manual) PT INR APTT ABG pH ABG pO2 ABG HCO3 ABG O2 Saturation ABG Base Excess ABG Hemoglobin Oxyhemoglobin Sodium 146 H Potassium Chloride 107.2 H Carbon Dioxide BUN Creatinine 0.5 L Glucose 132 H POC Glucose 124 H Lactic Acid Calcium Ionized Calcium Phosphorus Magnesium Total Bilirubin AST 246 H ALT 274 H Alkaline Phosphatase 203 H Ammonia Total Creatine Kinase CK-MB (CK-2) CK-MB (CK-2) Rel Index Total Protein 5.4 L Albumin 2.9 L Urine WBC (Auto) Salicylates Acetaminophen Plasma/Serum Alcohol 11/30/19 12/01/19 12/01/19 17:53 00:05 05:10 WBC RBC Hgb Hct MCH RDW Plt Count Lymph % (Auto) [place] % (Auto) [place] # Seg Neutrophils % Seg Neuts % (Manual) Lymphocytes % (Manual) Seg Neutrophils # Seg Neutrophils # Man Lymphocytes # (Manual) Monocytes # (Manual) PT INR APTT ABG pH ABG pO2 ABG HCO3 ABG O2 Saturation ABG Base Excess ABG Hemoglobin Oxyhemoglobin Sodium Potassium Chloride Carbon Dioxide BUN Creatinine Glucose POC Glucose 113 H 143 H 145 H Lactic Acid Calcium Ionized Calcium Phosphorus Magnesium Total Bilirubin AST ALT Alkaline Phosphatase Ammonia Total Creatine Kinase CK-MB (CK-2) CK-MB (CK-2) Rel Index Total Protein Albumin Urine WBC (Auto) Salicylates Acetaminophen Plasma/Serum Alcohol 12/01/19 12/01/19 12/01/19 05:33 08:23 08:23 WBC 22.7 H RBC 2.88 L Hgb 7.9 L Hct 25.2 L MCH 27 L RDW 21.0 H Plt Count 732 H Lymph % (Auto) [place] % (Auto) [place] # Seg Neutrophils % Seg Neuts % (Manual) 91.0 H Lymphocytes % (Manual) 3.0 L Seg Neutrophils # Seg Neutrophils # Man 20.7 H Lymphocytes # (Manual) 0.7 L Monocytes # (Manual) 1.1 H PT INR APTT ABG pH ABG pO2 68.6 L ABG HCO3 34.1 H ABG O2 Saturation ABG Base Excess 9.0 H ABG Hemoglobin 6.5 L Oxyhemoglobin 94.7 L Sodium Potassium Chloride Carbon Dioxide BUN Creatinine 0.5 L Glucose 125 H POC Glucose Lactic Acid Calcium Ionized Calcium Phosphorus Magnesium Total Bilirubin AST ALT Alkaline Phosphatase Ammonia Total Creatine Kinase CK-MB (CK-2) CK-MB (CK-2) Rel Index Total Protein Albumin Urine WBC (Auto) Salicylates Acetaminophen Plasma/Serum Alcohol Chest x-ray: other (none today) Allied health notes reviewed: nursing
--- NOTE | 2019-12-01 17:24 | Progress Note ---
Assessment and Plan Assessment and plan: The high probability of a clinically significant, sudden or life threatening deterioration of the [] system(s) required my full and direct attention, intervention and personal management. The aggregate critical care time was [] minutes. This time is in addition to time spent performing reported procedures but includes the following: [v] Data Review and interpretation cv Patient assessment and monitoring of vital signs [v]c Documentation [v] Medication orders and management - Patient Problems (1) Seizure disorder Current Visit: Yes Status: Acute Plan to address problem: Patient with seizure disorder no active seizure. Continue Keppra. Patient has not had a seizure stable. Have Ativan as needed. (2) Alcohol abuse Current Visit: Yes Status: Acute Plan to address problem: History of alcohol abuse. Patient does not have delirium tremors. Requires restraints. (3) Cardiac arrest with successful resuscitation Current Visit: Yes Status: Acute Plan to address problem: Status post cardiorespiratory arrest. 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 . Patient had intact corneal and cough reflex and withdrew lower extremities from pain. Unlikely however any meaningful recovery after extubation. Still appears to have anoxia (4) Elevated LFTs Current Visit: Yes Status: Acute Plan to address problem: LFTs not obtained on her last blood work. (5) UTI (urinary tract infection) Current Visit: Yes Status: Acute Plan to address problem: Continue antibiotics Rocephin completed yesterday.. No growth. Antibiotics discontinued. Medically stable. No evidence of fever. (6) HTN (hypertension) Current Visit: No Status: Acute Plan to address problem: Patient currently has optimal control of blood pressure. No changes in medical management. (7) Alcohol abuse Current Visit: Yes Status: Acute History Interval history: Patient remains intubated Hospital course unremarkable. Visit with nurse. Hospitalist Physical - Constitutional Vitals: Temp Pulse Resp BP Pulse Ox 99.8 F H 107 H 14 115/79 99 12/01/19 12:00 12/01/19 16:30 12/01/19 16:30 12/01/19 16:30 12/01/19 16:30 General appearance: Present: no acute distress, other (on vent with sedation, elderly female) - Respiratory Respiratory: bilateral: diminished - Cardiovascular Rhythm: regular Heart Sounds: Present: S1 & S2 - Extremities Extremities: no ischemia, pulses intact, pulses symmetrical, No edema, normal temperature Peripheral Pulses: within normal limits - Abdominal General gastrointestinal: non-tender, hypoactive bowel sounds - Integumentary Integumentary: Present: clear, warm, dry Results - Labs CBC & Chem 7: 12/01/19 08:23 12/01/19 08:23 Labs: Laboratory Last Values WBC 22.7 K/mm3 (4.5-11.0) H 12/01/19 08:23 RBC 2.88 M/mm3 (3.65-5.03) L 12/01/19 08:23 Hgb 7.9 gm/dl (10.1-14.3) L 12/01/19 08:23 Hct 25.2 % (30.3-42.9) L 12/01/19 08:23 MCV 88 fl (79-97) 12/01/19 08:23 MCH 27 pg (28-32) L 12/01/19 08:23 MCHC 31 % (30-34) 12/01/19 08:23 RDW 21.0 % (13.2-15.2) H 12/01/19 08:23 Plt Count 732 K/mm3 (140-440) H 12/01/19 08:23 Lymph % (Auto) 7.1 % (13.4-35.0) L 11/30/19 05:25 [place] % (Auto) 7.7 % (0.0-7.3) H 11/30/19 05:25 Eos % (Auto) 1.5 % (0.0-4.3) 11/30/19 05:25 Baso % (Auto) 0.3 % (0.0-1.8) 11/30/19 05:25 Lymph # 1.3 K/mm3 (1.2-5.4) 11/30/19 05:25 [place] # 1.4 K/mm3 (0.0-0.8) H 11/30/19 05:25 Eos # 0.3 K/mm3 (0.0-0.4) 11/30/19 05:25 Baso # 0.0 K/mm3 (0.0-0.1) 11/30/19 05:25 Add Manual Diff Complete 12/01/19 08:23 Total Counted 100 12/01/19 08:23 Seg Neutrophils % 83.4 % (40.0-70.0) H 11/30/19 05:25 Seg Neuts % (Manual) 91.0 % (40.0-70.0) H 12/01/19 08:23 Band Neutrophils % 0 % 12/01/19 08:23 Lymphocytes % (Manual) 3.0 % (13.4-35.0) L 12/01/19 08:23 Reactive Lymphs % (Man) 1.0 % 12/01/19 08:23 Monocytes % (Manual) 5.0 % (0.0-7.3) 12/01/19 08:23 Eosinophils % (Manual) 0 % (0.0-4.3) 12/01/19 08:23 Basophils % (Manual) 0 % (0.0-1.8) 12/01/19 08:23 Metamyelocytes % 0 % 12/01/19 08:23 Myelocytes % 0 % 12/01/19 08:23 Promyelocytes % 0 % 12/01/19 08:23 Blast Cells % 0 % 12/01/19 08:23 Nucleated RBC % Not Reportable 12/01/19 08:23 Seg Neutrophils # 15.4 K/mm3 (1.8-7.7) H 11/30/19 05:25 Seg Neutrophils # Man 20.7 K/mm3 (1.8-7.7) H 12/01/19 08:23 Band Neutrophils # 0.0 K/mm3 12/01/19 08:23 Lymphocytes # (Manual) 0.7 K/mm3 (1.2-5.4) L 12/01/19 08:23 Abs React Lymphs (Man) 0.2 K/mm3 12/01/19 08:23 Monocytes # (Manual) 1.1 K/mm3 (0.0-0.8) H 12/01/19 08:23 Eosinophils # (Manual) 0.0 K/mm3 (0.0-0.4) 12/01/19 08:23 Basophils # (Manual) 0.0 K/mm3 (0.0-0.1) 12/01/19 08:23 Metamyelocytes # 0.0 K/mm3 12/01/19 08:23 Myelocytes # 0.0 K/mm3 12/01/19 08:23 Promyelocytes # 0.0 K/mm3 12/01/19 08:23 Blast Cells # 0.0 K/mm3 12/01/19 08:23 WBC Morphology Not Reportable 12/01/19 08:23 Hypersegmented Neuts Not Reportable 12/01/19 08:23 Hyposegmented Neuts Not Reportable 12/01/19 08:23 Hypogranular Neuts Not Reportable 12/01/19 08:23 Smudge Cells Not Reportable 12/01/19 08:23 Toxic Granulation Not Reportable 12/01/19 08:23 Toxic Vacuolation Not Reportable 12/01/19 08:23 Dohle Bodies Not Reportable 12/01/19 08:23 Pel[place]-Huet Anomaly Not Reportable 12/01/19 08:23 Dominique Rods Not Reportable 12/01/19 08:23 Platelet Estimate Consistent w auto 12/01/19 08:23 Clumped Platelets Not Reportable 12/01/19 08:23 Plt Clumps, EDTA Not Reportable 12/01/19 08:23 Large Platelets Not Reportable 12/01/19 08:23 Giant Platelets Few 12/01/19 08:23 Platelet Satelliting Not Reportable 12/01/19 08:23 Plt Morphology Comment Not Reportable 12/01/19 08:23 RBC Morphology Not Reportable 12/01/19 08:23 Dimorphic RBCs Not Reportable 12/01/19 08:23 Polychromasia Few 12/01/19 08:23 Hypochromasia Few 12/01/19 08:23 Poikilocytosis Not Reportable 12/01/19 08:23 Anisocytosis Not Reportable 12/01/19 08:23 Microcytosis Not Reportable 12/01/19 08:23 Macrocytosis Not Reportable 12/01/19 08:23 Spherocytes Not Reportable 12/01/19 08:23 Pappenheimer Bodies Not Reportable 12/01/19 08:23 Sickle Cells Not Reportable 12/01/19 08:23 Target Cells 1+ 12/01/19 08:23 Tear Drop Cells Not Reportable 12/01/19 08:23 Ovalocytes Not Reportable 12/01/19 08:23 Helmet Cells Not Reportable 12/01/19 08:23 [place] Bodies Not Reportable 12/01/19 08:23 [place] Rings Not Reportable 12/01/19 08:23 [place] Cells Not Reportable 12/01/19 08:23 Bite Cells Not Reportable 12/01/19 08:23 Crenated Cell Not Reportable 12/01/19 08:23 Elliptocytes Not Reportable 12/01/19 08:23 Acanthocytes (Spur) Not Reportable 12/01/19 08:23 Rouleaux Not Reportable 12/01/19 08:23 Hemoglobin C Crystals Not Reportable 12/01/19 08:23 Schistocytes Not Reportable 12/01/19 08:23 Malaria parasites Not Reportable 12/01/19 08:23 [place] Bodies Not Reportable 12/01/19 08:23 Hem Pathologist Commnt No 12/01/19 08:23 PT 17.0 Sec. (12.2-14.9) H 11/23/19 03:47 INR 1.36 (0.87-1.13) H 11/23/19 03:47 APTT 128.2 Sec. (24.2-36.6) H* 11/23/19 03:47 Heparin Anti-Xa Level 0.31 U.I./ml (0.3-0.7) 11/23/19 09:03 ABG pH 7.434 pH Units (7.350-7.450) 12/01/19 05:33 ABG pCO2 52.0 mm Hg 12/01/19 05:33 ABG pO2 68.6 mm Hg (80.0-90.0) L 12/01/19 05:33 ABG HCO3 34.1 mmol/L (20.0-26.0) H 12/01/19 05:33 ABG O2 Saturation 97.3 % (95.0-99.0) 12/01/19 05:33 ABG O2 Content 8.8 (0.0-44) 12/01/19 05:33 ABG Base Excess 9.0 mmol/L (-2.0-3.0) H 12/01/19 05:33 ABG Hemoglobin 6.5 gm/dl (12.0-16.0) L 12/01/19 05:33 ABG Carboxyhemoglobin 2.2 % (0.0-5.0) 12/01/19 05:33 ABG Methemoglobin 0.5 % (0.0-1.5) 12/01/19 05:33 Oxyhemoglobin 94.7 % (95.0-99.0) L 12/01/19 05:33 FiO2 30 % 12/01/19 05:33 Sodium 139 mmol/L (137-145) 12/01/19 08:23 Potassium 4.4 mmol/L (3.6-5.0) 12/01/19 08:23 Chloride 98.5 mmol/L (98-107) 12/01/19 08:23 Carbon Dioxide 29 mmol/L (22-30) 12/01/19 08:23 Anion Gap 16 mmol/L 12/01/19 08:23 BUN 17 mg/dL (7-17) 12/01/19 08:23 Creatinine 0.5 mg/dL (0.7-1.2) L 12/01/19 08:23 Estimated GFR > 60 ml/min 12/01/19 08:23 BUN/Creatinine Ratio 34 % 12/01/19 08:23 Glucose 125 mg/dL (65-100) H 12/01/19 08:23 POC Glucose 145 (70-105) H 12/01/19 05:10 Lactic Acid 1.80 mmol/L (0.7-2.0) 11/25/19 05:05 Calcium 9.4 mg/dL (8.4-10.2) 12/01/19 08:23 Ionized Calcium 4.5 mg/dL (4.8-5.6) L 11/23/19 06:32 Phosphorus 4.20 mg/dL (2.5-4.5) D 11/28/19 08:59 Magnesium 2.30 mg/dL (1.7-2.3) 11/29/19 13:41 Total Bilirubin 0.30 mg/dL (0.1-1.2) 11/30/19 05:25 AST 246 units/L (5-40) H 11/30/19 05:25 ALT 274 units/L (7-56) H 11/30/19 05:25 Alkaline Phosphatase 203 units/L (35-129) H 11/30/19 05:25 Ammonia 42.0 umol/L (25-60) 11/29/19 13:41 Total Creatine Kinase 139 units/L (30-135) H 11/22/19 23:27 CK-MB (CK-2) 8.3 ng/mL (0.0-4.0) H 11/22/19 23:27 CK-MB (CK-2) Rel Index 5.9 (0-4) H 11/22/19 23:27 Troponin T < 0.010 ng/mL (0.00-0.029) 11/22/19 23:27 Total Protein 5.4 g/dL (6.3-8.2) L 11/30/19 05:25 Albumin 2.9 g/dL (3.9-5) L 11/30/19 05:25 Albumin/Globulin Ratio 1.2 % 11/30/19 05:25 Lipase 18 units/L (13-60) 11/23/19 00:34 Procalcitonin 1.09 ng/mL (<0.15) 11/23/19 04:53 Urine Color Yellow (Yellow) 11/22/19 23:17 Urine Turbidity Cloudy (Clear) 11/22/19 23:17 Urine pH 6.0 (5.0-7.0) 11/22/19 23:17 Ur Specific [place] 1.010 (1.003-1.030) 11/22/19 23:17 Urine Protein >500 mg/dL (Negative) 11/22/19 23:17 Urine Glucose (UA) >=500 mg/dL (Negative) 11/22/19 23:17 Urine Ketones 20 mg/dL (Negative) 11/22/19 23:17 Urine Blood Mod (Negative) 11/22/19 23:17 Urine Nitrite Neg (Negative) 11/22/19 23:17 Urine Bilirubin Neg (Negative) 11/22/19 23:17 Urine Urobilinogen 4.0 mg/dL (<2.0) 11/22/19 23:17 Ur Leukocyte Esterase Neg (Negative) 11/22/19 23:17 Urine WBC (Auto) 40.0 /HPF (0.0-6.0) H 11/22/19 23:17 Urine RBC (Auto) 10.0 /HPF (0.0-6.0) 11/22/19 23:17 U Epithel Cells (Auto) 1.0 /HPF (0-13.0) 11/22/19 23:17 Urine Bacteria (Auto) 2+ /HPF (Negative) 11/22/19 23:17 Urine Mucus Few /HPF 11/22/19 23:17 Salicylates < 0.3 mg/dL (2.8-20.0) L 11/22/19 23:27 Urine Opiates Screen Presumptive negative 11/22/19 23:17 Urine Methadone Screen Presumptive negative 11/22/19 23:17 Acetaminophen < 5.0 ug/mL (10.0-30.0) L 11/22/19 23:27 Ur Barbiturates Screen Presumptive negative 11/22/19 23:17 Ur Phencyclidine Scrn Presumptive negative 11/22/19 23:17 Ur Amphetamines Screen Presumptive negative 11/22/19 23:17 U Benzodiazepines Scrn Presumptive negative 11/22/19 23:17 Urine Cocaine Screen Presumptive negative 11/22/19 23:17 U Marijuana (THC) Screen Presumptive negative 11/22/19 23:17 Drugs of Abuse Note Disclamer 11/22/19 23:17 Plasma/Serum Alcohol 0.08 % (0-0.07) H 11/22/19 23:27 Hepatitis A IgM Ab Non-reactive (NonReactive) 11/23/19 01:19 Hep Bs Antigen Non-reactive (Negative) 11/23/19 01:19 Hep B Core IgM Ab Non-reactive (NonReactive) 11/23/19 01:19 Hepatitis C Antibody Non-reactive (NonReactive) 11/23/19 01:19 [place]/IV: Voiding Method External Female Catheter IV Catheter Type [Right Wrist] Peripheral IV IV Catheter Type [Left Wrist] Peripheral IV IV Catheter Type [Left Peripheral IV Antecubital] IV Catheter Type [Right INT / Saline Lock Forearm] IV Catheter Type [Left Hand] Peripheral IV Active Medications - Current Medications Current Medications: Generic Name Dose Route Start Last Admin Trade Name Freq PRN Reason Stop Dose Admin Lipase/Protease/Amylase 1 each 11/23/19 11:[address] 10,500 Unit FEEDTUBE PRN PRN For Clogged Feeding Tube Chlordiazepoxide HCl 25 mg 11/28/19 14:00 12/01/19 15:31 Librium PO 25 mg Q8H LUCHO Administration Fentanyl 50 mcg 11/28/19 15:26 Sublimaze IV Q10MIN PRN ANALGESIA Heparin Sodium (Porcine) 5,000 unit 11/23/19 22:00 12/01/19 10:58 Heparin SUB-Q 5,000 unit Q12HR LUCHO Administration Hydralazine HCl 10 mg 11/24/19 00:45 11/28/19 08:56 Apresoline IV 10 mg Q6H PRN Administration SBP > 160 Hydrophilic Ointment 1 applic 11/22/19 23:23 Vaseline Lip Therapy TP Q2HR PRN Dry Lips Fentanyl Citrate 2,000 mcg in 100 mls @ 2.74 mls/hr 11/28/19 16:00 11/30/19 23:01 Fentanyl Drip Premix IV 1 mcg/kg/hr TITR LUCHO 2.74 mls/hr Administration Protocol 1 MCG/KG/HR Lansoprazole 30 mg 11/27/19 10:00 12/01/19 10:58 Prevacid Solutab FEEDTUBE 30 mg QDAY LUCHO Administration Levetiracetam 500 mg 11/29/19 10:00 12/01/19 10:58 Keppra PO 500 mg BID LUCHO Administration Lorazepam 2 mg 11/26/19 11:09 11/28/19 15:08 Ativan IV 2 mg Q4H PRN Administration Agitation Multi-Ingred Cream/Lotion/Oil/Oint 1 applic 11/22/19 23:23 Artificial Tears Ophth Oint OU Q4HR PRN Dry Eye(s) Quetiapine Fumarate 300 mg 11/30/19 22:00 12/01/19 10:58 Seroquel PO 300 mg BID LUCHO Administration Simple Syrup 15 ml 11/23/19 11:50 Simple Syrup FEEDTUBE PRN PRN Hypoglycemia Simple Syrup 30 ml 11/23/19 11:50 Simple Syrup FEEDTUBE PRN PRN Hypoglycemia Sodium Bicarbonate 325 mg 11/23/19 11:50 Sodium Bicarbonate FEEDTUBE PRN PRN For Clogged Feeding Tube Nutrition/Malnutrition Assess - Dietary Evaluation Nutrition/Malnutrition Findings: Nutrition Notes Start: 11/23/19 11:29 Freq: Status: Active Protocol: Document 11/28/19 10:27 LM (Rec: 11/28/19 10:35 LM [id number]) Nutrition Notes Initial or Follow up Reassessment Current Diagnosis Hypertension Other Pertinent Diagnosis Cardaic arrest, ETOH dependence, UTI Current Diet Vital AF 1.2 at 50 ml/hr Labs/Tests Na 146 K 3.3 BUN 25 Cr 0.6 Pertinent Medications Reviewed Height 5 ft 6 in Weight 54.8 kg [place] Body Weight (kg) 59.09 BMI 19.5 Subjective/Other Information TF restarted. Pt tolerating TF at 50 ml/hr. Percent of energy/protein needs met: 100%/100% Burn Absent Trauma Absent GI Symptoms None Current % PO Negligible Minimum of two criteria No Muscle Mass Mild Depletion (non-severe) #1 Nutrition Diagnosis Inadequate oral intake Diagnosis Progress(for reassessment Continues documentation) Is patient on ventilator? Yes Is Patient Ambulatory and/or Out of Bed No REE-([place]-St. Jeor-confined to bed) [phone] [facility] Additional Notes Protein: 66-110g (1.2-2g/kg) Fluid: 1 ml/kcal Nutrition Intervention Change Diet Order: TF Nutrition Support: Vital AF 1.2 at 50 ml/hr Flush 200 ml q4h for hypernatremia Flush 80 ml q4h once hypernatremia resolves Kcal 1,440 Protein (gm) 90 Fluid (mL) 973 Goal #1 TF tolerance Goal #2 Meet at least 80% of energy and protein needs via TF Anticipated Discharge Needs: unable to determine at this time Follow-Up By: 12/05/19 Additional Comments F/U for TF tolerance
[2019-12-01 21:16] LABS: ABG Base Excess 7.9 mmol/L (-2.0-3.0); ABG HCO3 33.8 mmol/L (20.0-26.0); ABG Methemoglobin 0.5 % (0.0-1.5); ABG Oxygen Saturation 94.9 % (95.0-99.0); ABG PCO2 53.9 mm Hg; ABG PH 7.416 pH Units (7.350-7.450); ABG PO2 78.3 mm Hg (80.0-90.0)
[2019-12-02] MEDS: chlordiazePOXIDE 25 MG CAP PO SCH ×3 (05:00→22:21)
[2019-12-02] MEDS: LORazepam 2 MG/ML VIAL IV PRN (06:50)
[2019-12-02] MEDS: LACTULOSE 20 GM/30 ML ORAL LIQD PO SCH (07:29)
[2019-12-02] MEDS: QUEtiapine 100 MG TAB PO SCH ×2 (09:38→22:20)
[2019-12-02] MEDS: LANSOPRAZOLE 30 MG SOLUTAB FEEDTUBE SCH (09:38)
[2019-12-02] MEDS: HEPARIN 5,000 UNIT/1 ML VIAL SUB-Q SCH ×2 (09:38→22:21)
[2019-12-02] MEDS: levETIRAcetam 500 MG/5 ML ORAL LIQD PO SCH ×2 (09:38→22:20)
[2019-12-02] MEDS: fentaNYL DRIP Premix 2,000 MCG/100 ML BAG IV SCH (13:08)
--- NOTE | 2019-12-02 13:12 | Progress Note ---
Assessment and Plan Assessment and plan: The high probability of a clinically significant, sudden or life threatening deterioration of the [] system(s) required my full and direct attention, intervention and personal management. The aggregate critical care time was [] minutes. This time is in addition to time spent performing reported procedures but includes the following: [v] Data Review and interpretation cv Patient assessment and monitoring of vital signs [v]c Documentation [v] Medication orders and management Total Time Spent with Patient (Minutes): 22 - Patient Problems (1) Seizure disorder Current Visit: Yes Status: Acute Plan to address problem: No focal seizure disorder continue Keppra. (2) Alcohol abuse Current Visit: Yes Status: Acute Plan to address problem: History of alcohol abuse. Patient does not have delirium tremors. Requires restraints. (3) Cardiac arrest with successful resuscitation Current Visit: Yes Status: Acute Plan to address problem: Status post cardiorespiratory arrest. 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 . Patient had intact corneal and cough reflex and withdrew lower extremities from pain. Unlikely however any meaningful recovery after extub ation. Still appears to have anoxia still has severe anoxic encephalopathy. No new changes. (4) Elevated LFTs Current Visit: Yes Status: Acute Plan to address problem: LFTs not obtained on her last blood work. Obtain LFTs for Tuesday. Likely would not make and change any outcome with patient's prognosis. (5) UTI (urinary tract infection) Current Visit: Yes Status: Acute Plan to address problem: Continue antibiotics Rocephin completed yesterday.. No growth. Antibiotics discontinued. Medically stable. No evidence of fever. (6) HTN (hypertension) Current Visit: No Status: Acute Plan to address problem: Patient continues to have optimal control blood pressure. (7) Alcohol abuse Current Visit: Yes Status: Acute History Interval history: Patient remains intubated Hospital course unremarkable. Visit with nurse. No new events overnight. Intubated fentanyl drip. Hospitalist Physical - Constitutional Vitals: Temp Pulse Resp BP Pulse Ox 100 F H 116 H 15 112/72 98 12/02/19 08:00 12/02/19 11:00 12/02/19 11:00 12/02/19 11:00 12/02/19 11:00 General appearance: Present: no acute distress, other (on vent with sedation, elderly female) - EENT ENT: no oropharyngeal erythema, no poor dentition, no thrush - Neck Neck: Present: supple - Respiratory Respiratory effort: normal Respiratory: bilateral: diminished (On ventilator.) - Cardiovascular Rhythm: regular Heart Sounds: Absent: systolic murmur, diastolic murmur - Extremities Extremities: no ischemia, pulses intact, pulses symmetrical, normal temperature, normal color Extremity abnormal: edema Peripheral Pulses: within normal limits - Abdominal General gastrointestinal: deferred, non-tender, non-distended, hypoactive bowel sounds - Integumentary Integumentary: Present: clear, warm, dry Results - Labs CBC & Chem 7: 12/01/19 08:23 12/01/19 08:23 Labs: Laboratory Last Values WBC 22.7 K/mm3 (4.5-11.0) H 12/01/19 08:23 RBC 2.88 M/mm3 (3.65-5.03) L 12/01/19 08:23 Hgb 7.9 gm/dl (10.1-14.3) L 12/01/19 08:23 Hct 25.2 % (30.3-42.9) L 12/01/19 08:23 MCV 88 fl (79-97) 12/01/19 08:23 MCH 27 pg (28-32) L 12/01/19 08:23 MCHC 31 % (30-34) 12/01/19 08:23 RDW 21.0 % (13.2-15.2) H 12/01/19 08:23 Plt Count 732 K/mm3 (140-440) H 12/01/19 08:23 Lymph % (Auto) 7.1 % (13.4-35.0) L 11/30/19 05:25 [place] % (Auto) 7.7 % (0.0-7.3) H 11/30/19 05:25 Eos % (Auto) 1.5 % (0.0-4.3) 11/30/19 05:25 Baso % (Auto) 0.3 % (0.0-1.8) 11/30/19 05:25 Lymph # 1.3 K/mm3 (1.2-5.4) 11/30/19 05:25 [place] # 1.4 K/mm3 (0.0-0.8) H 11/30/19 05:25 Eos # 0.3 K/mm3 (0.0-0.4) 11/30/19 05:25 Baso # 0.0 K/mm3 (0.0-0.1) 11/30/19 05:25 Add Manual Diff Complete 12/01/19 08:23 Total Counted 100 12/01/19 08:23 Seg Neutrophils % 83.4 % (40.0-70.0) H 11/30/19 05:25 Seg Neuts % (Manual) 91.0 % (40.0-70.0) H 12/01/19 08:23 Band Neutrophils % 0 % 12/01/19 08:23 Lymphocytes % (Manual) 3.0 % (13.4-35.0) L 12/01/19 08:23 Reactive Lymphs % (Man) 1.0 % 12/01/19 08:23 Monocytes % (Manual) 5.0 % (0.0-7.3) 12/01/19 08:23 Eosinophils % (Manual) 0 % (0.0-4.3) 12/01/19 08:23 Basophils % (Manual) 0 % (0.0-1.8) 12/01/19 08:23 Metamyelocytes % 0 % 12/01/19 08:23 Myelocytes % 0 % 12/01/19 08:23 Promyelocytes % 0 % 12/01/19 08:23 Blast Cells % 0 % 12/01/19 08:23 Nucleated RBC % Not Reportable 12/01/19 08:23 Seg Neutrophils # 15.4 K/mm3 (1.8-7.7) H 11/30/19 05:25 Seg Neutrophils # Man 20.7 K/mm3 (1.8-7.7) H 12/01/19 08:23 Band Neutrophils # 0.0 K/mm3 12/01/19 08:23 Lymphocytes # (Manual) 0.7 K/mm3 (1.2-5.4) L 12/01/19 08:23 Abs React Lymphs (Man) 0.2 K/mm3 12/01/19 08:23 Monocytes # (Manual) 1.1 K/mm3 (0.0-0.8) H 12/01/19 08:23 Eosinophils # (Manual) 0.0 K/mm3 (0.0-0.4) 12/01/19 08:23 Basophils # (Manual) 0.0 K/mm3 (0.0-0.1) 12/01/19 08:23 Metamyelocytes # 0.0 K/mm3 12/01/19 08:23 Myelocytes # 0.0 K/mm3 12/01/19 08:23 Promyelocytes # 0.0 K/mm3 12/01/19 08:23 Blast Cells # 0.0 K/mm3 12/01/19 08:23 WBC Morphology Not Reportable 12/01/19 08:23 Hypersegmented Neuts Not Reportable 12/01/19 08:23 Hyposegmented Neuts Not Reportable 12/01/19 08:23 Hypogranular Neuts Not Reportable 12/01/19 08:23 Smudge Cells Not Reportable 12/01/19 08:23 Toxic Granulation Not Reportable 12/01/19 08:23 Toxic Vacuolation Not Reportable 12/01/19 08:23 Dohle Bodies Not Reportable 12/01/19 08:23 Pelger-Huet Anomaly Not Reportable 12/01/19 08:23 Dominique Rods Not Reportable 12/01/19 08:23 Platelet Estimate Consistent w auto 12/01/19 08:23 Clumped Platelets Not Reportable 12/01/19 08:23 Plt Clumps, EDTA Not Reportable 12/01/19 08:23 Large Platelets Not Reportable 12/01/19 08:23 Giant Platelets Few 12/01/19 08:23 Platelet Satelliting Not Reportable 12/01/19 08:23 Plt Morphology Comment Not Reportable 12/01/19 08:23 RBC Morphology Not Reportable 12/01/19 08:23 Dimorphic RBCs Not Reportable 12/01/19 08:23 Polychromasia Few 12/01/19 08:23 Hypochromasia Few 12/01/19 08:23 Poikilocytosis Not Reportable 12/01/19 08:23 Anisocytosis Not Reportable 12/01/19 08:23 Microcytosis Not Reportable 12/01/19 08:23 Macrocytosis Not Reportable 12/01/19 08:23 Spherocytes Not Reportable 12/01/19 08:23 Pappenheimer Bodies Not Reportable 12/01/19 08:23 Sickle Cells Not Reportable 12/01/19 08:23 Target Cells 1+ 12/01/19 08:23 Tear Drop Cells Not Reportable 12/01/19 08:23 Ovalocytes Not Reportable 12/01/19 08:23 Helmet Cells Not Reportable 12/01/19 08:23 [place] Bodies Not Reportable 12/01/19 08:23 [place] Rings Not Reportable 12/01/19 08:23 [place] Cells Not Reportable 12/01/19 08:23 Bite Cells Not Reportable 12/01/19 08:23 Crenated Cell Not Reportable 12/01/19 08:23 Elliptocytes Not Reportable 12/01/19 08:23 Acanthocytes (Spur) Not Reportable 12/01/19 08:23 Rouleaux Not Reportable 12/01/19 08:23 Hemoglobin C Crystals Not Reportable 12/01/19 08:23 Schistocytes Not Reportable 12/01/19 08:23 Malaria parasites Not Reportable 12/01/19 08:23 Gregg Bodies Not Reportable 12/01/19 08:23 Hem Pathologist Commnt No 12/01/19 08:23 PT 17.0 Sec. (12.2-14.9) H 11/23/19 03:47 INR 1.36 (0.87-1.13) H 11/23/19 03:47 APTT 128.2 Sec. (24.2-36.6) H* 11/23/19 03:47 Heparin Anti-Xa Level 0.31 U.I./ml (0.3-0.7) 11/23/19 09:03 ABG pH 7.416 pH Units (7.350-7.450) 12/01/19 20:59 ABG pCO2 53.9 mm Hg 12/01/19 20:59 ABG pO2 78.3 mm Hg (80.0-90.0) L 12/01/19 20:59 ABG HCO3 33.8 mmol/L (20.0-26.0) H 12/01/19 20:59 ABG O2 Saturation 94.9 % (95.0-99.0) L 12/01/19 20:59 ABG O2 Content 15.0 (0.0-44) 12/01/19 20:59 ABG Base Excess 7.9 mmol/L (-2.0-3.0) H 12/01/19 20:59 ABG Hemoglobin 11.5 gm/dl (12.0-16.0) L 12/01/19 20:59 ABG Carboxyhemoglobin 2.3 % (0.0-5.0) 12/01/19 20:59 ABG Methemoglobin 0.5 % (0.0-1.5) 12/01/19 20:59 Oxyhemoglobin 92.3 % (95.0-99.0) L 12/01/19 20:59 FiO2 30 % 12/01/19 20:59 Sodium 139 mmol/L (137-145) 12/01/19 08:23 Potassium 4.4 mmol/L (3.6-5.0) 12/01/19 08:23 Chloride 98.5 mmol/L (98-107) 12/01/19 08:23 Carbon Dioxide 29 mmol/L (22-30) 12/01/19 08:23 Anion Gap 16 mmol/L 12/01/19 08:23 BUN 17 mg/dL (7-17) 12/01/19 08:23 Creatinine 0.5 mg/dL (0.7-1.2) L 12/01/19 08:23 Estimated GFR > 60 ml/min 12/01/19 08:23 BUN/Creatinine Ratio 34 % 12/01/19 08:23 Glucose 125 mg/dL (65-100) H 12/01/19 08:23 POC Glucose 107 (70-105) H 12/02/19 12:55 Lactic Acid 1.80 mmol/L (0.7-2.0) 11/25/19 05:05 Calcium 9.4 mg/dL (8.4-10.2) 12/01/19 08:23 Ionized Calcium 4.5 mg/dL (4.8-5.6) L 11/23/19 06:32 Phosphorus 4.20 mg/dL (2.5-4.5) D 11/28/19 08:59 Magnesium 2.30 mg/dL (1.7-2.3) 11/29/19 13:41 Total Bilirubin 0.30 mg/dL (0.1-1.2) 11/30/19 05:25 AST 246 units/L (5-40) H 11/30/19 05:25 ALT 274 units/L (7-56) H 11/30/19 05:25 Alkaline Phosphatase 203 units/L (35-129) H 11/30/19 05:25 Ammonia 42.0 umol/L (25-60) 11/29/19 13:41 Total Creatine Kinase 139 units/L (30-135) H 11/22/19 23:27 CK-MB (CK-2) 8.3 ng/mL (0.0-4.0) H 11/22/19 23:27 CK-MB (CK-2) Rel Index 5.9 (0-4) H 11/22/19 23:27 Troponin T < 0.010 ng/mL (0.00-0.029) 11/22/19 23:27 Total Protein 5.4 g/dL (6.3-8.2) L 11/30/19 05:25 Albumin 2.9 g/dL (3.9-5) L 11/30/19 05:25 Albumin/Globulin Ratio 1.2 % 11/30/19 05:25 Lipase 18 units/L (13-60) 11/23/19 00:34 Procalcitonin 1.09 ng/mL (<0.15) 11/23/19 04:53 Urine Color Yellow (Yellow) 11/22/19 23:17 Urine Turbidity Cloudy (Clear) 11/22/19 23:17 Urine pH 6.0 (5.0-7.0) 11/22/19 23:17 Ur Specific [place] 1.010 (1.003-1.030) 11/22/19 23:17 Urine Protein >500 mg/dL (Negative) 11/22/19 23:17 Urine Glucose (UA) >=500 mg/dL (Negative) 11/22/19 23:17 Urine Ketones 20 mg/dL (Negative) 11/22/19 23:17 Urine Blood Mod (Negative) 11/22/19 23:17 Urine Nitrite Neg (Negative) 11/22/19 23:17 Urine Bilirubin Neg (Negative) 11/22/19 23:17 Urine Urobilinogen 4.0 mg/dL (<2.0) 11/22/19 23:17 Ur Leukocyte Esterase Neg (Negative) 11/22/19 23:17 Urine WBC (Auto) 40.0 /HPF (0.0-6.0) H 11/22/19 23:17 Urine RBC (Auto) 10.0 /HPF (0.0-6.0) 11/22/19 23:17 U Epithel Cells (Auto) 1.0 /HPF (0-13.0) 11/22/19 23:17 Urine Bacteria (Auto) 2+ /HPF (Negative) 11/22/19 23:17 Urine Mucus Few /HPF 11/22/19 23:17 Salicylates < 0.3 mg/dL (2.8-20.0) L 11/22/19 23:27 Urine Opiates Screen Presumptive negative 11/22/19 23:17 Urine Methadone Screen Presumptive negative 11/22/19 23:17 Acetaminophen < 5.0 ug/mL (10.0-30.0) L 11/22/19 23:27 Ur Barbiturates Screen Presumptive negative 11/22/19 23:17 Ur Phencyclidine Scrn Presumptive negative 11/22/19 23:17 Ur Amphetamines Screen Presumptive negative 11/22/19 23:17 U Benzodiazepines Scrn Presumptive negative 11/22/19 23:17 Urine Cocaine Screen Presumptive negative 11/22/19 23:17 U Marijuana (THC) Screen Presumptive negative 11/22/19 23:17 Drugs of Abuse Note Disclamer 11/22/19 23:17 Plasma/Serum Alcohol 0.08 % (0-0.07) H 11/22/19 23:27 Hepatitis A IgM Ab Non-reactive (NonReactive) 11/23/19 01:19 Hep Bs Antigen Non-reactive (Negative) 11/23/19 01:19 Hep B Core IgM Ab Non-reactive (NonReactive) 11/23/19 01:19 Hepatitis C Antibody Non-reactive (NonReactive) 11/23/19 01:19 [place]/IV: Voiding Method External Female Catheter IV Catheter Type [Right Wrist] Peripheral IV IV Catheter Type [Left Wrist] Peripheral IV IV Catheter Type [Left Peripheral IV Antecubital] IV Catheter Type [Right INT / Saline Lock Forearm] IV Catheter Type [Left Hand] Peripheral IV Active Medications - Current Medications Current Medications: Generic Name Dose Route Start Last Admin Trade Name Freq PRN Reason Stop Dose Admin Lipase/Protease/Amylase 1 each 11/23/19 11:[address] 10,500 Unit FEEDTUBE PRN PRN For Clogged Feeding Tube Chlordiazepoxide HCl 25 mg 11/28/19 14:00 12/02/19 05:00 Librium PO 25 mg Q8H LUCHO Administration Fentanyl 50 mcg 11/28/19 15:26 Sublimaze IV Q10MIN PRN ANALGESIA Heparin Sodium (Porcine) 5,000 unit 11/23/19 22:00 12/02/19 09:38 Heparin SUB-Q 5,000 unit Q12HR LUCHO Administration Hydralazine HCl 10 mg 11/24/19 00:45 11/28/19 08:56 Apresoline IV 10 mg Q6H PRN Administration SBP > 160 Hydrophilic Ointment 1 applic 11/22/19 23:23 Vaseline Lip Therapy TP Q2HR PRN Dry Lips Fentanyl Citrate 2,000 mcg in 100 mls @ 2.74 mls/hr 11/28/19 16:00 12/02/19 12:30 Fentanyl Drip Premix IV Infused TITR LUCHO Titration Protocol 1 MCG/KG/HR Lansoprazole 30 mg 11/27/19 10:00 12/02/19 09:38 Prevacid Solutab FEEDTUBE 30 mg QDAY LUCHO Administration Levetiracetam 500 mg 11/29/19 10:00 12/02/19 09:38 Keppra PO 500 mg BID LUCHO Administration Lorazepam 2 mg 11/26/19 11:09 12/02/19 06:50 Ativan IV 2 mg Q4H PRN Administration Agitation Multi-Ingred Cream/Lotion/Oil/Oint 1 applic 11/22/19 23:23 Artificial Tears Ophth Oint OU Q4HR PRN Dry Eye(s) Quetiapine Fumarate 300 mg 11/30/19 22:00 12/02/19 09:38 Seroquel PO 300 mg BID LUCHO Administration Simple Syrup 15 ml 11/23/19 11:50 Simple Syrup FEEDTUBE PRN PRN Hypoglycemia Simple Syrup 30 ml 11/23/19 11:50 Simple Syrup FEEDTUBE PRN PRN Hypoglycemia Sodium Bicarbonate 325 mg 11/23/19 11:50 Sodium Bicarbonate FEEDTUBE PRN PRN For Clogged Feeding Tube Nutrition/Malnutrition Assess - Dietary Evaluation Nutrition/Malnutrition Findings: Nutrition Notes Start: 11/23/19 11:29 Freq: Status: Active Protocol: Document 11/28/19 10:27 LM (Rec: 11/28/19 10:35 LM [id number]) Nutrition Notes Initial or Follow up Reassessment Current Diagnosis Hypertension Other Pertinent Diagnosis Cardaic arrest, ETOH dependence, UTI Current Diet Vital AF 1.2 at 50 ml/hr Labs/Tests Na 146 K 3.3 BUN 25 Cr 0.6 Pertinent Medications Reviewed Height 5 ft 6 in Weight 54.8 kg [place] Body Weight (kg) 59.09 BMI 19.5 Subjective/Other Information TF restarted. Pt tolerating TF at 50 ml/hr. Percent of energy/protein needs met: 100%/100% Burn Absent Trauma Absent GI Symptoms None Current % PO Negligible Minimum of two criteria No Muscle Mass Mild Depletion (non-severe) #1 Nutrition Diagnosis Inadequate oral intake Diagnosis Progress(for reassessment Continues documentation) Is patient on ventilator? Yes Is Patient Ambulatory and/or Out of Bed No REE-([facility]-confined to bed) 1402.224 Calculation Used for Recommendations [facility] Additional Notes Protein: 66-110g (1.2-2g/kg) Fluid: 1 ml/kcal Nutrition Intervention Change Diet Order: TF Nutrition Support: Vital AF 1.2 at 50 ml/hr Flush 200 ml q4h for hypernatremia Flush 80 ml q4h once hypernatremia resolves Kcal 1,440 Protein (gm) 90 Fluid (mL) 973 Goal #1 TF tolerance Goal #2 Meet at least 80% of energy and protein needs via TF Anticipated Discharge Needs: unable to determine at this time Follow-Up By: 12/05/19 Additional Comments F/U for TF tolerance
--- NOTE | 2019-12-02 16:29 | Progress Note ---
Assessment and Plan Acute cardiopulmonary arrest with ROSC Acute hypoxemic respiratory failure on MVS Acute metabolic-toxic encephalopathy Metabolic acidosis/alcoholic acidosis/Lactic acidosis Ischemic hepatitis Leucocytosis with lactic acidosis Tobacco use disorder ALcohol use Disorder Hypokalemia High grade fevers (Had family meeting with daughter, mother and sister in attendance; explained poor prognostic signs for neurologic recovery and likely need for trach & PEG + assistance with ADL's) - continue daytime SBT's as tolerated - continue Seroquel for tentative delirium and to spare IV sedation (Agitation improved today) - get ABG prn at this point - continue empiric Antibiotics per ID recommendations; de-escalate based on HILARIO /sensitivities / clinical progress - CIWA protocol - rest opn AC mode qhs for now - VAP bundle addressed (continue aspiration precautions, HOB>40) - ontinue daily SAT's and assessment for readiness for SBT (For PSV trial today) - Continue Intermittent sedation until patient's neurologic state can be better evaluated - begin Seroquel for agitation / to spare IV sedatives - Continue VTE and Stress ulcer prophylaxis - Continue enteric nutritional support. Monitor glycemic control, with target blood glucose 140-180 mg/dL while critically ill (Avoid hypoglycemia) - Continue daily SAT assessment as tolerated - Continue to wean supplemental oxygen for target O2 sat's > 90% - ABG and CXR prn - continue bronchodilators with p[ulmonary hygiene per RT - Continue to trend leukocytosis and lactic acidosis - Continue to treat for hepatic encephalopathy- especially with elevated ammonia levels- lactulose - Continue thiamine, multivitamin and electrolyte replacement - Continue to avoid nephrotoxins, adjust all medications fro GFR and CrCL - Continue bronchodilators with pulmonary hygiene - Continue to avoid benzodiazepines , as much as possible, to reduce the possibility of delirium - Continue prn analgesia per CPOT score - Continue to maintain of sleep-wake cycle, avoid delirium - PT/OT/ROM exercises- awaiting PT/OT evaluation - Continue mobility protocol and skin assessment per protocol for pressure ulcer prevention - Continue to monitor for clinical seizures - Continue Nicotine withdrawal precautions, alcohol withdrawal precautions - continue other care per attending / other consultants ..... re-evaluate in am & prn CONDITION: CRITICAL PROGNOSIS: GUARDED CODE STATUS: FULL CODE The high probability of a clinically significant, sudden or life-threatening deterioration of the [respiratory, cardiovascular,GI/hepatology] system(s) required my full and direct attention, intervention and personal management. The aggregate critical care time was [34] minutes without overlap. Time includes spent on; [x] Data Review and interpretation [x] Patient assessment and monitoring of vital signs [x] Documentation [x] Medication orders and management Subjective Date of service: 12/02/19 Principal diagnosis: Ac cardiopulmonary arrest; Ac hypoxemic resp failure; Acute encephalopathy Interval history: Patient is seen today for: Acute cardiopulmonary arrest with ROSC; Acute hypoxemic respiratory failure; Acute metabolic-toxic encephalopathy; Ischemic hepatitis; Leucocytosis with lactic acidosis; Tobacco use disorder; Alcohol use Disorder; Hypokalemia; High grade fevers Seen and examined at bedside; 24hour events reviewed; nursing and respiratory care staff consulted; no adverse overnight events reported to me; resting peacefully in bed; placed on SBT and tolerating well so far; AMS is persistent Objective Vital Signs - 12hr 12/02/19 12/02/19 12/02/19 04:30 04:41 05:00 Temperature Pulse Rate 109 H 109 H 110 H Pulse Rate [ From Monitor] Respiratory 17 16 Rate Respiratory Rate [Bilateral Foot] Blood Pressure 123/74 123/74 110/66 O2 Sat by Pulse 98 99 96 Oximetry 12/02/19 12/02/19 12/02/19 05:30 06:00 06:30 Temperature Pulse Rate 118 H 116 H 120 H Pulse Rate [ From Monitor] Respiratory 17 36 H 18 Rate Respiratory Rate [Bilateral Foot] Blood Pressure 143/89 119/78 146/91 O2 Sat by Pulse 98 94 97 Oximetry 12/02/19 12/02/19 12/02/19 07:00 07:29 07:30 Temperature Pulse Rate 115 H 114 H 115 H Pulse Rate [ From Monitor] Respiratory 16 15 Rate Respiratory Rate [Bilateral Foot] Blood Pressure 138/81 135/82 135/82 O2 Sat by Pulse 95 98 98 Oximetry 12/02/19 12/02/19 12/02/19 08:00 08:30 09:00 Temperature 100 F H Pulse Rate 114 H 109 H 108 H Pulse Rate [ 113 H From Monitor] Respiratory 13 14 13 Rate Respiratory Rate [Bilateral Foot] Blood Pressure 119/72 116/72 111/66 O2 Sat by Pulse 98 99 98 Oximetry 12/02/19 12/02/19 12/02/19 09:30 10:00 10:30 Temperature Pulse Rate 109 H 112 H 113 H Pulse Rate [ From Monitor] Respiratory 13 15 16 Rate Respiratory 14 Rate [Bilateral Foot] Blood Pressure 124/78 135/87 96/51 O2 Sat by Pulse 97 99 95 Oximetry 12/02/19 12/02/19 12/02/19 11:00 11:30 12:00 Temperature 99.4 F Pulse Rate 116 H 115 H 115 H Pulse Rate [ 116 H From Monitor] Respiratory 15 14 13 Rate Respiratory Rate [Bilateral Foot] Blood Pressure 112/72 119/73 119/76 O2 Sat by Pulse 98 98 99 Oximetry 12/02/19 12/02/19 12/02/19 12:30 13:00 13:30 Temperature Pulse Rate 115 H 117 H 121 H Pulse Rate [ From Monitor] Respiratory 15 14 27 H Rate Respiratory Rate [Bilateral Foot] Blood Pressure 126/75 116/75 130/82 O2 Sat by Pulse 99 98 97 Oximetry 12/02/19 12/02/19 12/02/19 14:00 14:30 15:00 Temperature Pulse Rate 118 H 122 H 120 H Pulse Rate [ From Monitor] Respiratory 15 20 19 Rate Respiratory Rate [Bilateral Foot] Blood Pressure 111/45 125/83 125/83 O2 Sat by Pulse 92 98 98 Oximetry 12/02/19 16:00 Temperature Pulse Rate 113 H Pulse Rate [ From Monitor] Respiratory Rate Respiratory Rate [Bilateral Foot] Blood Pressure 118/71 O2 Sat by Pulse 96 Oximetry Constitutional: no acute distress, other (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, orally intuabted ETT at 23 cm at the lip to mVS, no dys-synchrony) Eyes: non-icteric ENT: oropharynx moist, other (ETT 23 cm AMALIA) Neck: supple, no lymphadenopathy, no JVD Effort: mildly labored Ascultation: Bilateral: diminished breath sounds, rhonchi Percussion: Bilateral: not dull Cardiovascular: regular rate and rhythm (tachycardia), other (S1,S2) Gastrointestinal: normoactive bowel sounds, soft, non-tender, non-distended Integumentary: normal Extremities: no cyanosis, no edema, pulses normal, no ischemia or petechiae Neurologic: unable to assess, other (awake but not tracking voice ) Psychiatric: other (Psychiatric: Unable to assess) CBC and BMP: 12/01/19 08:23 12/01/19 08:23 ABG, PT/INR, D-dimer: ABG ABG pH 7.416 pH Units (7.350-7.450) 12/01/19 20:59 ABG pCO2 53.9 mm Hg 12/01/19 20:59 ABG pO2 78.3 mm Hg (80.0-90.0) L 12/01/19 20:59 ABG O2 Saturation 94.9 % (95.0-99.0) L 12/01/19 20:59 PT/INR, D-dimer PT 17.0 Sec. (12.2-14.9) H 11/23/19 03:47 INR 1.36 (0.87-1.13) H 11/23/19 03:47 Abnormal lab findings: Abnormal Labs 11/22/19 11/22/19 11/22/19 23:17 23:18 23:27 WBC 21.2 H RBC 3.59 L Hgb 9.8 L Hct MCH 27 L RDW 18.6 H Plt Count 454 H Lymph % (Auto) [place] % (Auto) [place] # Seg Neutrophils % Seg Neuts % (Manual) 86.0 H Lymphocytes % (Manual) 9.0 L Seg Neutrophils # Seg Neutrophils # Man 18.2 H Lymphocytes # (Manual) Monocytes # (Manual) 1.1 H PT INR APTT ABG pH ABG pO2 ABG HCO3 ABG O2 Saturation ABG Base Excess ABG Hemoglobin Oxyhemoglobin Sodium Potassium Chloride Carbon Dioxide BUN Creatinine Glucose POC Glucose 53 L Lactic Acid Calcium Ionized Calcium Phosphorus Magnesium Total Bilirubin AST ALT Alkaline Phosphatase Ammonia Total Creatine Kinase CK-MB (CK-2) CK-MB (CK-2) Rel Index Total Protein Albumin Urine WBC (Auto) 40.0 H Salicylates Acetaminophen Plasma/Serum Alcohol 11/22/19 11/22/19 11/22/19 23:27 23:27 23:27 WBC RBC Hgb Hct MCH RDW Plt Count Lymph % (Auto) [place] % (Auto) [place] # Seg Neutrophils % Seg Neuts % (Manual) Lymphocytes % (Manual) Seg Neutrophils # Seg Neutrophils # Man Lymphocytes # (Manual) Monocytes # (Manual) PT INR APTT ABG pH ABG pO2 ABG HCO3 ABG O2 Saturation ABG Base Excess ABG Hemoglobin Oxyhemoglobin Sodium Potassium 2.4 L* Chloride 85.1 L Carbon Dioxide 19 L BUN Creatinine 0.5 L Glucose 261 H POC Glucose Lactic Acid Calcium Ionized Calcium Phosphorus Magnesium Total Bilirubin AST 609 H ALT 152 H Alkaline Phosphatase 160 H Ammonia 117.0 H Total Creatine Kinase 139 H CK-MB (CK-2) 8.3 H CK-MB (CK-2) Rel Index 5.9 H Total Protein Albumin 3.6 L Urine WBC (Auto) Salicylates < 0.3 L Acetaminophen Plasma/Serum Alcohol 11/22/19 11/22/19 11/23/19 23:27 23:27 01:10 WBC RBC Hgb Hct MCH RDW Plt Count Lymph % (Auto) [place] % (Auto) [place] # Seg Neutrophils % Seg Neuts % (Manual) Lymphocytes % (Manual) Seg Neutrophils # Seg Neutrophils # Man Lymphocytes # (Manual) Monocytes # (Manual) PT INR APTT ABG pH 7.273 L ABG pO2 209.7 H ABG HCO3 ABG O2 Saturation 99.2 H ABG Base Excess -3.9 L ABG Hemoglobin 10.6 L Oxyhemoglobin 93.9 L Sodium Potassium Chloride Carbon Dioxide BUN Creatinine Glucose POC Glucose Lactic Acid Calcium Ionized Calcium Phosphorus Magnesium Total Bilirubin AST ALT Alkaline Phosphatase Ammonia Total Creatine Kinase CK-MB (CK-2) CK-MB (CK-2) Rel Index Total Protein Albumin Urine WBC (Auto) Salicylates Acetaminophen < 5.0 L Plasma/Serum Alcohol 0.08 H 11/23/19 11/23/19 11/23/19 01:19 01:19 03:47 WBC RBC Hgb Hct MCH RDW Plt Count Lymph % (Auto) [place] % (Auto) [place] # Seg Neutrophils % Seg Neuts % (Manual) Lymphocytes % (Manual) Seg Neutrophils # Seg Neutrophils # Man Lymphocytes # (Manual) Monocytes # (Manual) PT 16.3 H INR 1.29 H APTT ABG pH ABG pO2 ABG HCO3 ABG O2 Saturation ABG Base Excess ABG Hemoglobin Oxyhemoglobin Sodium Potassium Chloride Carbon Dioxide BUN Creatinine Glucose POC Glucose Lactic Acid 2.10 H* 5.00 H* Calcium Ionized Calcium Phosphorus Magnesium Total Bilirubin AST ALT Alkaline Phosphatase Ammonia Total Creatine Kinase CK-MB (CK-2) CK-MB (CK-2) Rel Index Total Protein Albumin Urine WBC (Auto) Salicylates Acetaminophen Plasma/Serum Alcohol 11/23/19 11/23/19 11/23/19 03:47 03:47 04:53 WBC RBC Hgb 9.4 L Hct MCH RDW Plt Count Lymph % (Auto) [place] % (Auto) [place] # Seg Neutrophils % Seg Neuts % (Manual) Lymphocytes % (Manual) Seg Neutrophils # Seg Neutrophils # Man Lymphocytes # (Manual) Monocytes # (Manual) PT 17.0 H INR 1.36 H APTT 128.2 H* ABG pH ABG pO2 ABG HCO3 ABG O2 Saturation ABG Base Excess ABG Hemoglobin Oxyhemoglobin Sodium Potassium Chloride Carbon Dioxide 18 L BUN Creatinine 0.5 L Glucose 105 H POC Glucose Lactic Acid Calcium 8.3 L Ionized Calcium Phosphorus 2.40 L Magnesium Total Bilirubin 1.30 H AST 761 H ALT 158 H Alkaline Phosphatase 143 H Ammonia Total Creatine Kinase CK-MB (CK-2) CK-MB (CK-2) Rel Index Total Protein Albumin 2.8 L Urine WBC (Auto) Salicylates Acetaminophen Plasma/Serum Alcohol 11/23/19 11/23/19 11/23/19 05:12 06:32 06:32 WBC 16.8 H RBC 3.31 L Hgb 8.9 L Hct 28.7 L MCH 27 L RDW 18.6 H Plt Count Lymph % (Auto) [place] % (Auto) [place] # Seg Neutrophils % Seg Neuts % (Manual) 94.0 H Lymphocytes % (Manual) 1.0 L Seg Neutrophils # Seg Neutrophils # Man 15.8 H Lymphocytes # (Manual) 0.2 L Monocytes # (Manual) PT INR APTT ABG pH ABG pO2 ABG HCO3 ABG O2 Saturation ABG Base Excess -3.2 L ABG Hemoglobin 9.0 L Oxyhemoglobin 93.6 L Sodium Potassium Chloride Carbon Dioxide BUN Creatinine Glucose POC Glucose Lactic Acid Calcium Ionized Calcium 4.5 L Phosphorus Magnesium Total Bilirubin AST ALT Alkaline Phosphatase Ammonia Total Creatine Kinase CK-MB (CK-2) CK-MB (CK-2) Rel Index Total Protein Albumin Urine WBC (Auto) Salicylates Acetaminophen Plasma/Serum Alcohol 11/23/19 11/24/19 11/24/19 06:32 04:35 04:35 WBC RBC Hgb Hct MCH RDW Plt Count Lymph % (Auto) [place] % (Auto) [place] # Seg Neutrophils % Seg Neuts % (Manual) Lymphocytes % (Manual) Seg Neutrophils # Seg Neutrophils # Man Lymphocytes # (Manual) Monocytes # (Manual) PT INR APTT ABG pH ABG pO2 ABG HCO3 ABG O2 Saturation ABG Base Excess ABG Hemoglobin Oxyhemoglobin Sodium Potassium Chloride Carbon Dioxide BUN Creatinine Glucose POC Glucose Lactic Acid 3.30 H* Calcium Ionized Calcium Phosphorus Magnesium 1.40 L Total Bilirubin AST ALT Alkaline Phosphatase Ammonia 98.0 H Total Creatine Kinase CK-MB (CK-2) CK-MB (CK-2) Rel Index Total Protein Albumin Urine WBC (Auto) Salicylates Acetaminophen Plasma/Serum Alcohol 11/24/19 11/25/19 11/25/19 05:22 04:34 05:05 WBC 17.3 H RBC 2.88 L Hgb 7.8 L Hct 24.6 L MCH 27 L RDW 18.5 H Plt Count Lymph % (Auto) 7.7 L [place] % (Auto) 9.7 H [place] # 1.7 H Seg Neutrophils % 82.2 H Seg Neuts % (Manual) Lymphocytes % (Manual) Seg Neutrophils # 14.2 H Seg Neutrophils # Man Lymphocytes # (Manual) Monocytes # (Manual) PT INR APTT ABG pH 7.475 H ABG pO2 ABG HCO3 29.4 H 32.3 H ABG O2 Saturation ABG Base Excess 5.4 H 6.9 H ABG Hemoglobin 9.0 L 10.6 L Oxyhemoglobin 94.3 L Sodium Potassium Chloride Carbon Dioxide BUN Creatinine Glucose POC Glucose Lactic Acid Calcium Ionized Calcium Phosphorus Magnesium Total Bilirubin AST ALT Alkaline Phosphatase Ammonia Total Creatine Kinase CK-MB (CK-2) CK-MB (CK-2) Rel Index Total Protein Albumin Urine WBC (Auto) Salicylates Acetaminophen Plasma/Serum Alcohol 11/25/19 11/25/19 11/26/19 05:05 22:46 03:31 WBC RBC Hgb Hct MCH RDW Plt Count Lymph % (Auto) [place] % (Auto) [place] # Seg Neutrophils % Seg Neuts % (Manual) Lymphocytes % (Manual) Seg Neutrophils # Seg Neutrophils # Man Lymphocytes # (Manual) Monocytes # (Manual) PT INR APTT ABG pH 7.459 H ABG pO2 ABG HCO3 34.2 H ABG O2 Saturation ABG Base Excess 9.4 H ABG Hemoglobin 7.6 L Oxyhemoglobin 94.8 L Sodium 152 H D 147 H Potassium 2.3 L* D 2.8 L* D Chloride 107.8 H Carbon Dioxide 31 H D 33 H BUN Creatinine 0.6 L 0.6 L Glucose 148 H 177 H POC Glucose Lactic Acid Calcium Ionized Calcium Phosphorus Magnesium Total Bilirubin AST 105 H ALT 71 H Alkaline Phosphatase 155 H Ammonia Total Creatine Kinase CK-MB (CK-2) CK-MB (CK-2) Rel Index Total Protein 5.2 L D Albumin 2.9 L Urine WBC (Auto) Salicylates Acetaminophen Plasma/Serum Alcohol 11/26/19 11/26/19 11/27/19 08:24 08:24 04:20 WBC 12.0 H RBC 3.00 L Hgb 8.0 L 9.3 L Hct 25.9 L 29.7 L MCH 27 L RDW 18.5 H Plt Count Lymph % (Auto) [place] % (Auto) [place] # Seg Neutrophils % Seg Neuts % (Manual) 89.0 H Lymphocytes % (Manual) 4.0 L Seg Neutrophils # Seg Neutrophils # Man 10.7 H Lymphocytes # (Manual) 0.5 L Monocytes # (Manual) PT INR APTT ABG pH ABG pO2 ABG HCO3 ABG O2 Saturation ABG Base Excess ABG Hemoglobin Oxyhemoglobin Sodium 146 H Potassium 3.4 L D Chloride Carbon Dioxide BUN Creatinine 0.5 L Glucose 165 H POC Glucose Lactic Acid Calcium Ionized Calcium Phosphorus Magnesium Total Bilirubin AST 57 H ALT Alkaline Phosphatase 166 H Ammonia Total Creatine Kinase CK-MB (CK-2) CK-MB (CK-2) Rel Index Total Protein Albumin 2.9 L Urine WBC (Auto) Salicylates Acetaminophen Plasma/Serum Alcohol 11/27/19 11/27/19 11/27/19 04:28 04:28 04:42 WBC RBC Hgb Hct MCH RDW Plt Count Lymph % (Auto) [place] % (Auto) [place] # Seg Neutrophils % Seg Neuts % (Manual) Lymphocytes % (Manual) Seg Neutrophils # Seg Neutrophils # Man Lymphocytes # (Manual) Monocytes # (Manual) PT INR APTT ABG pH 7.470 H ABG pO2 74.0 L ABG HCO3 33.8 H ABG O2 Saturation ABG Base Excess 9.1 H ABG Hemoglobin 8.7 L Oxyhemoglobin 94.7 L Sodium 146 H Potassium 2.9 L* Chloride Carbon Dioxide BUN 25 H Creatinine Glucose 213 H POC Glucose Lactic Acid Calcium Ionized Calcium Phosphorus 1.00 L Magnesium Total Bilirubin AST ALT Alkaline Phosphatase Ammonia Total Creatine Kinase CK-MB (CK-2) CK-MB (CK-2) Rel Index Total Protein Albumin Urine WBC (Auto) Salicylates Acetaminophen Plasma/Serum Alcohol 11/27/19 11/27/19 11/27/19 05:37 12:20 15:46 WBC RBC Hgb Hct MCH RDW Plt Count Lymph % (Auto) [place] % (Auto) [place] # Seg Neutrophils % Seg Neuts % (Manual) Lymphocytes % (Manual) Seg Neutrophils # Seg Neutrophils # Man Lymphocytes # (Manual) Monocytes # (Manual) PT INR APTT ABG pH ABG pO2 ABG HCO3 ABG O2 Saturation ABG Base Excess ABG Hemoglobin Oxyhemoglobin Sodium 146 H Potassium 3.5 L D Chloride Carbon Dioxide BUN 24 H Creatinine 0.6 L Glucose 187 H POC Glucose 117 H 220 H Lactic Acid Calcium Ionized Calcium Phosphorus Magnesium Total Bilirubin AST ALT Alkaline Phosphatase Ammonia Total Creatine Kinase CK-MB (CK-2) CK-MB (CK-2) Rel Index Total Protein Albumin Urine WBC (Auto) Salicylates Acetaminophen Plasma/Serum Alcohol 11/27/19 11/28/19 11/28/19 17:28 05:00 05:02 WBC RBC Hgb Hct MCH RDW Plt Count Lymph % (Auto) [place] % (Auto) [place] # Seg Neutrophils % Seg Neuts % (Manual) Lymphocytes % (Manual) Seg Neutrophils # Seg Neutrophils # Man Lymphocytes # (Manual) Monocytes # (Manual) PT INR APTT ABG pH ABG pO2 72.4 L ABG HCO3 33.6 H ABG O2 Saturation 94.1 L ABG Base Excess 7.3 H ABG Hemoglobin Oxyhemoglobin 91.8 L Sodium 146 H Potassium 3.3 L Chloride Carbon Dioxide BUN 25 H Creatinine 0.6 L Glucose 176 H POC Glucose 198 H Lactic Acid Calcium Ionized Calcium Phosphorus Magnesium Total Bilirubin AST ALT Alkaline Phosphatase Ammonia Total Creatine Kinase CK-MB (CK-2) CK-MB (CK-2) Rel Index Total Protein Albumin Urine WBC (Auto) Salicylates Acetaminophen Plasma/Serum Alcohol 11/28/19 11/28/19 11/29/19 05:02 18:55 10:43 WBC 15.2 H 19.0 H RBC 3.06 L 3.01 L Hgb 8.3 L 8.3 L Hct 27.0 L 26.4 L MCH 27 L RDW 19.0 H 19.7 H Plt Count 479 H 611 H Lymph % (Auto) [place] % (Auto) [place] # Seg Neutrophils % Seg Neuts % (Manual) 92.0 H Lymphocytes % (Manual) 2.0 L Seg Neutrophils # Seg Neutrophils # Man 14.0 H Lymphocytes # (Manual) 0.3 L Monocytes # (Manual) PT INR APTT ABG pH ABG pO2 ABG HCO3 ABG O2 Saturation ABG Base Excess ABG Hemoglobin Oxyhemoglobin Sodium Potassium Chloride Carbon Dioxide BUN Creatinine Glucose POC Glucose 138 H Lactic Acid Calcium Ionized Calcium Phosphorus Magnesium Total Bilirubin AST ALT Alkaline Phosphatase Ammonia Total Creatine Kinase CK-MB (CK-2) CK-MB (CK-2) Rel Index Total Protein Albumin Urine WBC (Auto) Salicylates Acetaminophen Plasma/Serum Alcohol 11/29/19 11/29/19 11/29/19 10:43 12:27 19:25 WBC RBC Hgb Hct MCH RDW Plt Count Lymph % (Auto) [place] % (Auto) [place] # Seg Neutrophils % Seg Neuts % (Manual) Lymphocytes % (Manual) Seg Neutrophils # Seg Neutrophils # Man Lymphocytes # (Manual) Monocytes # (Manual) PT INR APTT ABG pH ABG pO2 ABG HCO3 ABG O2 Saturation ABG Base Excess ABG Hemoglobin Oxyhemoglobin Sodium Potassium 2.8 L* Chloride Carbon Dioxide BUN 20 H Creatinine 0.5 L Glucose 121 H POC Glucose 128 H 120 H Lactic Acid Calcium Ionized Calcium Phosphorus Magnesium Total Bilirubin AST ALT Alkaline Phosphatase Ammonia Total Creatine Kinase CK-MB (CK-2) CK-MB (CK-2) Rel Index Total Protein Albumin Urine WBC (Auto) Salicylates Acetaminophen Plasma/Serum Alcohol 11/29/19 11/30/19 11/30/19 23:46 04:10 05:02 WBC RBC Hgb Hct MCH RDW Plt Count Lymph % (Auto) [place] % (Auto) [place] # Seg Neutrophils % Seg Neuts % (Manual) Lymphocytes % (Manual) Seg Neutrophils # Seg Neutrophils # Man Lymphocytes # (Manual) Monocytes # (Manual) PT INR APTT ABG pH ABG pO2 76.3 L ABG HCO3 32.5 H ABG O2 Saturation ABG Base Excess 6.9 H ABG Hemoglobin 8.0 L Oxyhemoglobin 92.6 L Sodium Potassium Chloride Carbon Dioxide BUN Creatinine Glucose POC Glucose 116 H 128 H Lactic Acid Calcium Ionized Calcium Phosphorus Magnesium Total Bilirubin AST ALT Alkaline Phosphatase Ammonia Total Creatine Kinase CK-MB (CK-2) CK-MB (CK-2) Rel Index Total Protein Albumin Urine WBC (Auto) Salicylates Acetaminophen Plasma/Serum Alcohol 11/30/19 11/30/19 11/30/19 05:25 05:25 12:59 WBC 18.4 H RBC 3.10 L Hgb 8.5 L Hct 27.5 L MCH 27 L RDW 20.9 H Plt Count 691 H Lymph % (Auto) 7.1 L [place] % (Auto) 7.7 H [place] # 1.4 H Seg Neutrophils % 83.4 H Seg Neuts % (Manual) Lymphocytes % (Manual) Seg Neutrophils # 15.4 H Seg Neutrophils # Man Lymphocytes # (Manual) Monocytes # (Manual) PT INR APTT ABG pH ABG pO2 ABG HCO3 ABG O2 Saturation ABG Base Excess ABG Hemoglobin Oxyhemoglobin Sodium 146 H Potassium Chloride 107.2 H Carbon Dioxide BUN Creatinine 0.5 L Glucose 132 H POC Glucose 124 H Lactic Acid Calcium Ionized Calcium Phosphorus Magnesium Total Bilirubin AST 246 H ALT 274 H Alkaline Phosphatase 203 H Ammonia Total Creatine Kinase CK-MB (CK-2) CK-MB (CK-2) Rel Index Total Protein 5.4 L Albumin 2.9 L Urine WBC (Auto) Salicylates Acetaminophen Plasma/Serum Alcohol 11/30/19 12/01/19 12/01/19 17:53 00:05 05:10 WBC RBC Hgb Hct MCH RDW Plt Count Lymph % (Auto) [place] % (Auto) [place] # Seg Neutrophils % Seg Neuts % (Manual) Lymphocytes % (Manual) Seg Neutrophils # Seg Neutrophils # Man Lymphocytes # (Manual) Monocytes # (Manual) PT INR APTT ABG pH ABG pO2 ABG HCO3 ABG O2 Saturation ABG Base Excess ABG Hemoglobin Oxyhemoglobin Sodium Potassium Chloride Carbon Dioxide BUN Creatinine Glucose POC Glucose 113 H 143 H 145 H Lactic Acid Calcium Ionized Calcium Phosphorus Magnesium Total Bilirubin AST ALT Alkaline Phosphatase Ammonia Total Creatine Kinase CK-MB (CK-2) CK-MB (CK-2) Rel Index Total Protein Albumin Urine WBC (Auto) Salicylates Acetaminophen Plasma/Serum Alcohol 12/01/19 12/01/19 12/01/19 05:33 08:23 08:23 WBC 22.7 H RBC 2.88 L Hgb 7.9 L Hct 25.2 L MCH 27 L RDW 21.0 H Plt Count 732 H Lymph % (Auto) [place] % (Auto) [place] # Seg Neutrophils % Seg Neuts % (Manual) 91.0 H Lymphocytes % (Manual) 3.0 L Seg Neutrophils # Seg Neutrophils # Man 20.7 H Lymphocytes # (Manual) 0.7 L Monocytes # (Manual) 1.1 H PT INR APTT ABG pH ABG pO2 68.6 L ABG HCO3 34.1 H ABG O2 Saturation ABG Base Excess 9.0 H ABG Hemoglobin 6.5 L Oxyhemoglobin 94.7 L Sodium Potassium Chloride Carbon Dioxide BUN Creatinine 0.5 L Glucose 125 H POC Glucose Lactic Acid Calcium Ionized Calcium Phosphorus Magnesium Total Bilirubin AST ALT Alkaline Phosphatase Ammonia Total Creatine Kinase CK-MB (CK-2) CK-MB (CK-2) Rel Index Total Protein Albumin Urine WBC (Auto) Salicylates Acetaminophen Plasma/Serum Alcohol 12/01/19 12/01/19 12/01/19 13:21 17:54 20:59 WBC RBC Hgb Hct MCH RDW Plt Count Lymph % (Auto) [place] % (Auto) [place] # Seg Neutrophils % Seg Neuts % (Manual) Lymphocytes % (Manual) Seg Neutrophils # Seg Neutrophils # Man Lymphocytes # (Manual) Monocytes # (Manual) PT INR APTT ABG pH ABG pO2 78.3 L ABG HCO3 33.8 H ABG O2 Saturation 94.9 L ABG Base Excess 7.9 H ABG Hemoglobin 11.5 L Oxyhemoglobin 92.3 L Sodium Potassium Chloride Carbon Dioxide BUN Creatinine Glucose POC Glucose 111 H 115 H Lactic Acid Calcium Ionized Calcium Phosphorus Magnesium Total Bilirubin AST ALT Alkaline Phosphatase Ammonia Total Creatine Kinase CK-MB (CK-2) CK-MB (CK-2) Rel Index Total Protein Albumin Urine WBC (Auto) Salicylates Acetaminophen Plasma/Serum Alcohol 12/02/19 12:55 WBC RBC Hgb Hct MCH RDW Plt Count Lymph % (Auto) [place] % (Auto) [place] # Seg Neutrophils % Seg Neuts % (Manual) Lymphocytes % (Manual) Seg Neutrophils # Seg Neutrophils # Man Lymphocytes # (Manual) Monocytes # (Manual) PT INR APTT ABG pH ABG pO2 ABG HCO3 ABG O2 Saturation ABG Base Excess ABG Hemoglobin Oxyhemoglobin Sodium Potassium Chloride Carbon Dioxide BUN Creatinine Glucose POC Glucose 107 H Lactic Acid Calcium Ionized Calcium Phosphorus Magnesium Total Bilirubin AST ALT Alkaline Phosphatase Ammonia Total Creatine Kinase CK-MB (CK-2) CK-MB (CK-2) Rel Index Total Protein Albumin Urine WBC (Auto) Salicylates Acetaminophen Plasma/Serum Alcohol Chest x-ray: pending Allied health notes reviewed: nursing
[2019-12-03] MEDS: chlordiazePOXIDE 25 MG CAP PO SCH ×3 (05:57→21:36)
[2019-12-03] MEDS: levETIRAcetam 500 MG/5 ML ORAL LIQD PO SCH ×2 (10:50→21:36)
[2019-12-03] MEDS: LANSOPRAZOLE 30 MG SOLUTAB FEEDTUBE SCH (10:50)
[2019-12-03] MEDS: QUEtiapine 100 MG TAB PO SCH ×2 (10:50→21:36)
[2019-12-03] MEDS: HEPARIN 5,000 UNIT/1 ML VIAL SUB-Q SCH ×2 (10:50→21:37)
--- NOTE | 2019-12-03 12:22 | Progress Note ---
Assessment and Plan Acute cardiopulmonary arrest with ROSC Acute hypoxemic respiratory failure on MVS Acute metabolic-toxic encephalopathy Metabolic acidosis/alcoholic acidosis/Lactic acidosis Ischemic hepatitis Leucocytosis with lactic acidosis Tobacco use disorder ALcohol use Disorder Hypokalemia High grade fevers (Had family meeting with daughter, mother and sister in attendance; explained poor prognostic signs for neurologic recovery and likely need for trach & PEG + assistance with ADL's) - repeat CXR in am - resumed SBT and will continue as tolerated - rest on AC mode qhs - ABG at 9 pm if still on PSV - continue Seroquel for tentative delirium and to spare IV sedation - get ABG prn at this point - continue empiric Antibiotics per ID recommendations; de-escalate based on HILARIO /sensitivities / clinical progress - CIWA protocol - rest opn AC mode qhs for now - VAP bundle addressed (continue aspiration precautions, HOB>40) - ontinue daily SAT's and assessment for readiness for SBT (For PSV trial today) - Continue Intermittent sedation until patient's neurologic state can be better evaluated - begin Seroquel for agitation / to spare IV sedatives - Continue VTE and Stress ulcer prophylaxis - Continue enteric nutritional support. Monitor glycemic control, with target blood glucose 140-180 mg/dL while critically ill (Avoid hypoglycemia) - Continue daily SAT assessment as tolerated - Continue to wean supplemental oxygen for target O2 sat's > 90% - ABG and CXR prn - continue bronchodilators with p[ulmonary hygiene per RT - Continue to trend leukocytosis and lactic acidosis - Continue to treat for hepatic encephalopathy- especially with elevated ammonia levels- lactulose - Continue thiamine, multivitamin and electrolyte replacement - Continue to avoid nephrotoxins, adjust all medications fro GFR and CrCL - Continue bronchodilators with pulmonary hygiene - Continue to avoid benzodiazepines , as much as possible, to reduce the possibility of delirium - Continue prn analgesia per CPOT score - Continue to maintain of sleep-wake cycle, avoid delirium - PT/OT/ROM exercises- awaiting PT/OT evaluation - Continue mobility protocol and skin assessment per protocol for pressure ulcer prevention - Continue to monitor for clinical seizures - Continue Nicotine withdrawal precautions, alcohol withdrawal precautions - continue other care per attending / other consultants ..... re-evaluate in am & prn CONDITION: CRITICAL PROGNOSIS: GUARDED CODE STATUS: FULL CODE The high probability of a clinically significant, sudden or life-threatening deterioration of the [respiratory, cardiovascular,GI/hepatology] system(s) required my full and direct attention, intervention and personal management. The aggregate critical care time was [32] minutes without overlap. Time includes spent on; [x] Data Review and interpretation [x] Patient assessment and monitoring of vital signs [x] Documentation [x] Medication orders and management Subjective Date of service: 12/03/19 Principal diagnosis: Ac cardiopulmonary arrest; Ac hypoxemic resp failure; Acute encephalopathy Interval history: Patient is seen today for: Acute cardiopulmonary arrest with ROSC; Acute hypoxemic respiratory failure; Acute metabolic-toxic encephalopathy; Ischemic hepatitis; Leucocytosis with lactic acidosis; Tobacco use disorder; Alcohol use Disorder; Hypokalemia; High grade fevers Seen and examined at bedside; 24hour events reviewed; nursing and respiratory care staff consulted; no adverse overnight events reported to me; resting peacefully in bed; not yet weaned today; AMS is persistent; + intermittent agitation Objective Vital Signs - 12hr 12/03/19 12/03/19 12/03/19 00:30 00:44 01:00 Temperature Pulse Rate 107 H 106 H 106 H Pulse Rate [ From Monitor] Respiratory 12 13 Rate Respiratory Rate [Bilateral Foot] Blood Pressure 107/69 107/69 112/72 O2 Sat by Pulse 99 99 99 Oximetry 12/03/19 12/03/19 12/03/19 01:30 02:00 02:30 Temperature Pulse Rate 104 H 108 H 106 H Pulse Rate [ From Monitor] Respiratory 15 14 11 L Rate Respiratory Rate [Bilateral Foot] Blood Pressure 104/67 126/85 109/71 O2 Sat by Pulse 99 100 96 Oximetry 12/03/19 12/03/19 12/03/19 03:00 03:23 03:30 Temperature 99.2 F Pulse Rate 105 H 105 H Pulse Rate [ From Monitor] Respiratory 15 14 Rate Respiratory Rate [Bilateral Foot] Blood Pressure 102/68 112/76 O2 Sat by Pulse 99 99 Oximetry 12/03/19 12/03/19 12/03/19 04:00 04:30 05:00 Temperature Pulse Rate 107 H 108 H 110 H Pulse Rate [ 109 H From Monitor] Respiratory 13 15 14 Rate Respiratory Rate [Bilateral Foot] Blood Pressure 111/75 124/82 109/71 O2 Sat by Pulse 100 100 99 Oximetry 12/03/19 12/03/19 12/03/19 05:06 05:30 06:00 Temperature Pulse Rate 110 H 110 H 110 H Pulse Rate [ From Monitor] Respiratory 14 14 Rate Respiratory Rate [Bilateral Foot] Blood Pressure 109/71 117/81 116/74 O2 Sat by Pulse 99 99 98 Oximetry 12/03/19 12/03/19 12/03/19 06:30 07:00 07:30 Temperature Pulse Rate 110 H 109 H 109 H Pulse Rate [ From Monitor] Respiratory 14 15 14 Rate Respiratory Rate [Bilateral Foot] Blood Pressure 111/71 114/76 116/75 O2 Sat by Pulse 97 97 97 Oximetry 12/03/19 12/03/19 12/03/19 08:00 08:30 08:55 Temperature 99.4 F Pulse Rate 110 H 110 H 110 H Pulse Rate [ 108 H From Monitor] Respiratory 14 15 Rate Respiratory Rate [Bilateral Foot] Blood Pressure 122/78 113/74 122/78 O2 Sat by Pulse 98 97 100 Oximetry 12/03/19 12/03/19 12/03/19 09:00 09:30 09:42 Temperature Pulse Rate 110 H 110 H 110 H Pulse Rate [ From Monitor] Respiratory 14 15 24 Rate Respiratory Rate [Bilateral Foot] Blood Pressure 110/71 114/72 114/72 O2 Sat by Pulse 96 96 99 Oximetry 12/03/19 12/03/19 12/03/19 10:00 10:30 11:00 Temperature Pulse Rate 109 H 109 H 108 H Pulse Rate [ From Monitor] Respiratory 25 H 25 H 22 Rate Respiratory 22 Rate [Bilateral Foot] Blood Pressure 104/66 108/70 111/71 O2 Sat by Pulse 96 96 96 Oximetry 12/03/19 12/03/19 11:30 12:00 Temperature 98.1 F Pulse Rate 113 H Pulse Rate [ From Monitor] Respiratory 23 Rate Respiratory Rate [Bilateral Foot] Blood Pressure 99/62 O2 Sat by Pulse 96 Oximetry Constitutional: no acute distress, other (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, orally intuabted ETT at 23 cm at the lip to mVS, no dys-synchrony) Eyes: non-icteric ENT: oropharynx moist, other (ETT 23 cm AMALIA) Neck: supple, no lymphadenopathy, no JVD Effort: mildly labored Ascultation: Bilateral: diminished breath sounds, rhonchi Percussion: Bilateral: not dull Cardiovascular: regular rate and rhythm (tachycardia), other (S1,S2) Gastrointestinal: normoactive bowel sounds, soft, non-tender, non-distended Integumentary: normal Extremities: no cyanosis, no edema, pulses normal, no ischemia or petechiae Neurologic: unable to assess, other (awake but not tracking voice ) Psychiatric: other (Psychiatric: Unable to assess) CBC and BMP: 12/04/19 07:45 12/04/19 04:26 ABG, PT/INR, D-dimer: ABG ABG pH 7.416 pH Units (7.350-7.450) 12/01/19 20:59 ABG pCO2 53.9 mm Hg 12/01/19 20:59 ABG pO2 78.3 mm Hg (80.0-90.0) L 12/01/19 20:59 ABG O2 Saturation 94.9 % (95.0-99.0) L 12/01/19 20:59 PT/INR, D-dimer PT 17.0 Sec. (12.2-14.9) H 11/23/19 03:47 INR 1.36 (0.87-1.13) H 11/23/19 03:47 Abnormal lab findings: Abnormal Labs 11/22/19 11/22/19 11/22/19 23:17 23:18 23:27 WBC 21.2 H RBC 3.59 L Hgb 9.8 L Hct MCH 27 L RDW 18.6 H Plt Count 454 H Lymph % (Auto) [place] % (Auto) [place] # Seg Neutrophils % Seg Neuts % (Manual) 86.0 H Lymphocytes % (Manual) 9.0 L Seg Neutrophils # Seg Neutrophils # Man 18.2 H Lymphocytes # (Manual) Monocytes # (Manual) 1.1 H PT INR APTT ABG pH ABG pO2 ABG HCO3 ABG O2 Saturation ABG Base Excess ABG Hemoglobin Oxyhemoglobin Sodium Potassium Chloride Carbon Dioxide BUN Creatinine Glucose POC Glucose 53 L Lactic Acid Calcium Ionized Calcium Phosphorus Magnesium Total Bilirubin AST ALT Alkaline Phosphatase Ammonia Total Creatine Kinase CK-MB (CK-2) CK-MB (CK-2) Rel Index Total Protein Albumin Urine WBC (Auto) 40.0 H Salicylates Acetaminophen Plasma/Serum Alcohol 11/22/19 11/22/19 11/22/19 23:27 23:27 23:27 WBC RBC Hgb Hct MCH RDW Plt Count Lymph % (Auto) [place] % (Auto) [place] # Seg Neutrophils % Seg Neuts % (Manual) Lymphocytes % (Manual) Seg Neutrophils # Seg Neutrophils # Man Lymphocytes # (Manual) Monocytes # (Manual) PT INR APTT ABG pH ABG pO2 ABG HCO3 ABG O2 Saturation ABG Base Excess ABG Hemoglobin Oxyhemoglobin Sodium Potassium 2.4 L* Chloride 85.1 L Carbon Dioxide 19 L BUN Creatinine 0.5 L Glucose 261 H POC Glucose Lactic Acid Calcium Ionized Calcium Phosphorus Magnesium Total Bilirubin AST 609 H ALT 152 H Alkaline Phosphatase 160 H Ammonia 117.0 H Total Creatine Kinase 139 H CK-MB (CK-2) 8.3 H CK-MB (CK-2) Rel Index 5.9 H Total Protein Albumin 3.6 L Urine WBC (Auto) Salicylates < 0.3 L Acetaminophen Plasma/Serum Alcohol 11/22/19 11/22/19 11/23/19 23:27 23:27 01:10 WBC RBC Hgb Hct MCH RDW Plt Count Lymph % (Auto) [place] % (Auto) [place] # Seg Neutrophils % Seg Neuts % (Manual) Lymphocytes % (Manual) Seg Neutrophils # Seg Neutrophils # Man Lymphocytes # (Manual) Monocytes # (Manual) PT INR APTT ABG pH 7.273 L ABG pO2 209.7 H ABG HCO3 ABG O2 Saturation 99.2 H ABG Base Excess -3.9 L ABG Hemoglobin 10.6 L Oxyhemoglobin 93.9 L Sodium Potassium Chloride Carbon Dioxide BUN Creatinine Glucose POC Glucose Lactic Acid Calcium Ionized Calcium Phosphorus Magnesium Total Bilirubin AST ALT Alkaline Phosphatase Ammonia Total Creatine Kinase CK-MB (CK-2) CK-MB (CK-2) Rel Index Total Protein Albumin Urine WBC (Auto) Salicylates Acetaminophen < 5.0 L Plasma/Serum Alcohol 0.08 H 11/23/19 11/23/19 11/23/19 01:19 01:19 03:47 WBC RBC Hgb Hct MCH RDW Plt Count Lymph % (Auto) [place] % (Auto) [place] # Seg Neutrophils % Seg Neuts % (Manual) Lymphocytes % (Manual) Seg Neutrophils # Seg Neutrophils # Man Lymphocytes # (Manual) Monocytes # (Manual) PT 16.3 H INR 1.29 H APTT ABG pH ABG pO2 ABG HCO3 ABG O2 Saturation ABG Base Excess ABG Hemoglobin Oxyhemoglobin Sodium Potassium Chloride Carbon Dioxide BUN Creatinine Glucose POC Glucose Lactic Acid 2.10 H* 5.00 H* Calcium Ionized Calcium Phosphorus Magnesium Total Bilirubin AST ALT Alkaline Phosphatase Ammonia Total Creatine Kinase CK-MB (CK-2) CK-MB (CK-2) Rel Index Total Protein Albumin Urine WBC (Auto) Salicylates Acetaminophen Plasma/Serum Alcohol 11/23/19 11/23/19 11/23/19 03:47 03:47 04:53 WBC RBC Hgb 9.4 L Hct MCH RDW Plt Count Lymph % (Auto) [place] % (Auto) [place] # Seg Neutrophils % Seg Neuts % (Manual) Lymphocytes % (Manual) Seg Neutrophils # Seg Neutrophils # Man Lymphocytes # (Manual) Monocytes # (Manual) PT 17.0 H INR 1.36 H APTT 128.2 H* ABG pH ABG pO2 ABG HCO3 ABG O2 Saturation ABG Base Excess ABG Hemoglobin Oxyhemoglobin Sodium Potassium Chloride Carbon Dioxide 18 L BUN Creatinine 0.5 L Glucose 105 H POC Glucose Lactic Acid Calcium 8.3 L Ionized Calcium Phosphorus 2.40 L Magnesium Total Bilirubin 1.30 H AST 761 H ALT 158 H Alkaline Phosphatase 143 H Ammonia Total Creatine Kinase CK-MB (CK-2) CK-MB (CK-2) Rel Index Total Protein Albumin 2.8 L Urine WBC (Auto) Salicylates Acetaminophen Plasma/Serum Alcohol 11/23/19 11/23/19 11/23/19 05:12 06:32 06:32 WBC 16.8 H RBC 3.31 L Hgb 8.9 L Hct 28.7 L MCH 27 L RDW 18.6 H Plt Count Lymph % (Auto) [place] % (Auto) [place] # Seg Neutrophils % Seg Neuts % (Manual) 94.0 H Lymphocytes % (Manual) 1.0 L Seg Neutrophils # Seg Neutrophils # Man 15.8 H Lymphocytes # (Manual) 0.2 L Monocytes # (Manual) PT INR APTT ABG pH ABG pO2 ABG HCO3 ABG O2 Saturation ABG Base Excess -3.2 L ABG Hemoglobin 9.0 L Oxyhemoglobin 93.6 L Sodium Potassium Chloride Carbon Dioxide BUN Creatinine Glucose POC Glucose Lactic Acid Calcium Ionized Calcium 4.5 L Phosphorus Magnesium Total Bilirubin AST ALT Alkaline Phosphatase Ammonia Total Creatine Kinase CK-MB (CK-2) CK-MB (CK-2) Rel Index Total Protein Albumin Urine WBC (Auto) Salicylates Acetaminophen Plasma/Serum Alcohol 11/23/19 11/24/19 11/24/19 06:32 04:35 04:35 WBC RBC Hgb Hct MCH RDW Plt Count Lymph % (Auto) [place] % (Auto) [place] # Seg Neutrophils % Seg Neuts % (Manual) Lymphocytes % (Manual) Seg Neutrophils # Seg Neutrophils # Man Lymphocytes # (Manual) Monocytes # (Manual) PT INR APTT ABG pH ABG pO2 ABG HCO3 ABG O2 Saturation ABG Base Excess ABG Hemoglobin Oxyhemoglobin Sodium Potassium Chloride Carbon Dioxide BUN Creatinine Glucose POC Glucose Lactic Acid 3.30 H* Calcium Ionized Calcium Phosphorus Magnesium 1.40 L Total Bilirubin AST ALT Alkaline Phosphatase Ammonia 98.0 H Total Creatine Kinase CK-MB (CK-2) CK-MB (CK-2) Rel Index Total Protein Albumin Urine WBC (Auto) Salicylates Acetaminophen Plasma/Serum Alcohol 11/24/19 11/25/19 11/25/19 05:22 04:34 05:05 WBC 17.3 H RBC 2.88 L Hgb 7.8 L Hct 24.6 L MCH 27 L RDW 18.5 H Plt Count Lymph % (Auto) 7.7 L [place] % (Auto) 9.7 H [place] # 1.7 H Seg Neutrophils % 82.2 H Seg Neuts % (Manual) Lymphocytes % (Manual) Seg Neutrophils # 14.2 H Seg Neutrophils # Man Lymphocytes # (Manual) Monocytes # (Manual) PT INR APTT ABG pH 7.475 H ABG pO2 ABG HCO3 29.4 H 32.3 H ABG O2 Saturation ABG Base Excess 5.4 H 6.9 H ABG Hemoglobin 9.0 L 10.6 L Oxyhemoglobin 94.3 L Sodium Potassium Chloride Carbon Dioxide BUN Creatinine Glucose POC Glucose Lactic Acid Calcium Ionized Calcium Phosphorus Magnesium Total Bilirubin AST ALT Alkaline Phosphatase Ammonia Total Creatine Kinase CK-MB (CK-2) CK-MB (CK-2) Rel Index Total Protein Albumin Urine WBC (Auto) Salicylates Acetaminophen Plasma/Serum Alcohol 11/25/19 11/25/19 11/26/19 05:05 22:46 03:31 WBC RBC Hgb Hct MCH RDW Plt Count Lymph % (Auto) [place] % (Auto) [place] # Seg Neutrophils % Seg Neuts % (Manual) Lymphocytes % (Manual) Seg Neutrophils # Seg Neutrophils # Man Lymphocytes # (Manual) Monocytes # (Manual) PT INR APTT ABG pH 7.459 H ABG pO2 ABG HCO3 34.2 H ABG O2 Saturation ABG Base Excess 9.4 H ABG Hemoglobin 7.6 L Oxyhemoglobin 94.8 L Sodium 152 H D 147 H Potassium 2.3 L* D 2.8 L* D Chloride 107.8 H Carbon Dioxide 31 H D 33 H BUN Creatinine 0.6 L 0.6 L Glucose 148 H 177 H POC Glucose Lactic Acid Calcium Ionized Calcium Phosphorus Magnesium Total Bilirubin AST 105 H ALT 71 H Alkaline Phosphatase 155 H Ammonia Total Creatine Kinase CK-MB (CK-2) CK-MB (CK-2) Rel Index Total Protein 5.2 L D Albumin 2.9 L Urine WBC (Auto) Salicylates Acetaminophen Plasma/Serum Alcohol 11/26/19 11/26/19 11/27/19 08:24 08:24 04:20 WBC 12.0 H RBC 3.00 L Hgb 8.0 L 9.3 L Hct 25.9 L 29.7 L MCH 27 L RDW 18.5 H Plt Count Lymph % (Auto) [place] % (Auto) [place] # Seg Neutrophils % Seg Neuts % (Manual) 89.0 H Lymphocytes % (Manual) 4.0 L Seg Neutrophils # Seg Neutrophils # Man 10.7 H Lymphocytes # (Manual) 0.5 L Monocytes # (Manual) PT INR APTT ABG pH ABG pO2 ABG HCO3 ABG O2 Saturation ABG Base Excess ABG Hemoglobin Oxyhemoglobin Sodium 146 H Potassium 3.4 L D Chloride Carbon Dioxide BUN Creatinine 0.5 L Glucose 165 H POC Glucose Lactic Acid Calcium Ionized Calcium Phosphorus Magnesium Total Bilirubin AST 57 H ALT Alkaline Phosphatase 166 H Ammonia Total Creatine Kinase CK-MB (CK-2) CK-MB (CK-2) Rel Index Total Protein Albumin 2.9 L Urine WBC (Auto) Salicylates Acetaminophen Plasma/Serum Alcohol 11/27/19 11/27/19 11/27/19 04:28 04:28 04:42 WBC RBC Hgb Hct MCH RDW Plt Count Lymph % (Auto) [place] % (Auto) [place] # Seg Neutrophils % Seg Neuts % (Manual) Lymphocytes % (Manual) Seg Neutrophils # Seg Neutrophils # Man Lymphocytes # (Manual) Monocytes # (Manual) PT INR APTT ABG pH 7.470 H ABG pO2 74.0 L ABG HCO3 33.8 H ABG O2 Saturation ABG Base Excess 9.1 H ABG Hemoglobin 8.7 L Oxyhemoglobin 94.7 L Sodium 146 H Potassium 2.9 L* Chloride Carbon Dioxide BUN 25 H Creatinine Glucose 213 H POC Glucose Lactic Acid Calcium Ionized Calcium Phosphorus 1.00 L Magnesium Total Bilirubin AST ALT Alkaline Phosphatase Ammonia Total Creatine Kinase CK-MB (CK-2) CK-MB (CK-2) Rel Index Total Protein Albumin Urine WBC (Auto) Salicylates Acetaminophen Plasma/Serum Alcohol 11/27/19 11/27/19 11/27/19 05:37 12:20 15:46 WBC RBC Hgb Hct MCH RDW Plt Count Lymph % (Auto) [place] % (Auto) [place] # Seg Neutrophils % Seg Neuts % (Manual) Lymphocytes % (Manual) Seg Neutrophils # Seg Neutrophils # Man Lymphocytes # (Manual) Monocytes # (Manual) PT INR APTT ABG pH ABG pO2 ABG HCO3 ABG O2 Saturation ABG Base Excess ABG Hemoglobin Oxyhemoglobin Sodium 146 H Potassium 3.5 L D Chloride Carbon Dioxide BUN 24 H Creatinine 0.6 L Glucose 187 H POC Glucose 117 H 220 H Lactic Acid Calcium Ionized Calcium Phosphorus Magnesium Total Bilirubin AST ALT Alkaline Phosphatase Ammonia Total Creatine Kinase CK-MB (CK-2) CK-MB (CK-2) Rel Index Total Protein Albumin Urine WBC (Auto) Salicylates Acetaminophen Plasma/Serum Alcohol 11/27/19 11/28/19 11/28/19 17:28 05:00 05:02 WBC RBC Hgb Hct MCH RDW Plt Count Lymph % (Auto) [place] % (Auto) [place] # Seg Neutrophils % Seg Neuts % (Manual) Lymphocytes % (Manual) Seg Neutrophils # Seg Neutrophils # Man Lymphocytes # (Manual) Monocytes # (Manual) PT INR APTT ABG pH ABG pO2 72.4 L ABG HCO3 33.6 H ABG O2 Saturation 94.1 L ABG Base Excess 7.3 H ABG Hemoglobin Oxyhemoglobin 91.8 L Sodium 146 H Potassium 3.3 L Chloride Carbon Dioxide BUN 25 H Creatinine 0.6 L Glucose 176 H POC Glucose 198 H Lactic Acid Calcium Ionized Calcium Phosphorus Magnesium Total Bilirubin AST ALT Alkaline Phosphatase Ammonia Total Creatine Kinase CK-MB (CK-2) CK-MB (CK-2) Rel Index Total Protein Albumin Urine WBC (Auto) Salicylates Acetaminophen Plasma/Serum Alcohol 11/28/19 11/28/19 11/29/19 05:02 18:55 10:43 WBC 15.2 H 19.0 H RBC 3.06 L 3.01 L Hgb 8.3 L 8.3 L Hct 27.0 L 26.4 L MCH 27 L RDW 19.0 H 19.7 H Plt Count 479 H 611 H Lymph % (Auto) [place] % (Auto) [place] # Seg Neutrophils % Seg Neuts % (Manual) 92.0 H Lymphocytes % (Manual) 2.0 L Seg Neutrophils # Seg Neutrophils # Man 14.0 H Lymphocytes # (Manual) 0.3 L Monocytes # (Manual) PT INR APTT ABG pH ABG pO2 ABG HCO3 ABG O2 Saturation ABG Base Excess ABG Hemoglobin Oxyhemoglobin Sodium Potassium Chloride Carbon Dioxide BUN Creatinine Glucose POC Glucose 138 H Lactic Acid Calcium Ionized Calcium Phosphorus Magnesium Total Bilirubin AST ALT Alkaline Phosphatase Ammonia Total Creatine Kinase CK-MB (CK-2) CK-MB (CK-2) Rel Index Total Protein Albumin Urine WBC (Auto) Salicylates Acetaminophen Plasma/Serum Alcohol 11/29/19 11/29/19 11/29/19 10:43 12:27 19:25 WBC RBC Hgb Hct MCH RDW Plt Count Lymph % (Auto) [place] % (Auto) [place] # Seg Neutrophils % Seg Neuts % (Manual) Lymphocytes % (Manual) Seg Neutrophils # Seg Neutrophils # Man Lymphocytes # (Manual) Monocytes # (Manual) PT INR APTT ABG pH ABG pO2 ABG HCO3 ABG O2 Saturation ABG Base Excess ABG Hemoglobin Oxyhemoglobin Sodium Potassium 2.8 L* Chloride Carbon Dioxide BUN 20 H Creatinine 0.5 L Glucose 121 H POC Glucose 128 H 120 H Lactic Acid Calcium Ionized Calcium Phosphorus Magnesium Total Bilirubin AST ALT Alkaline Phosphatase Ammonia Total Creatine Kinase CK-MB (CK-2) CK-MB (CK-2) Rel Index Total Protein Albumin Urine WBC (Auto) Salicylates Acetaminophen Plasma/Serum Alcohol 11/29/19 11/30/19 11/30/19 23:46 04:10 05:02 WBC RBC Hgb Hct MCH RDW Plt Count Lymph % (Auto) [place] % (Auto) [place] # Seg Neutrophils % Seg Neuts % (Manual) Lymphocytes % (Manual) Seg Neutrophils # Seg Neutrophils # Man Lymphocytes # (Manual) Monocytes # (Manual) PT INR APTT ABG pH ABG pO2 76.3 L ABG HCO3 32.5 H ABG O2 Saturation ABG Base Excess 6.9 H ABG Hemoglobin 8.0 L Oxyhemoglobin 92.6 L Sodium Potassium Chloride Carbon Dioxide BUN Creatinine Glucose POC Glucose 116 H 128 H Lactic Acid Calcium Ionized Calcium Phosphorus Magnesium Total Bilirubin AST ALT Alkaline Phosphatase Ammonia Total Creatine Kinase CK-MB (CK-2) CK-MB (CK-2) Rel Index Total Protein Albumin Urine WBC (Auto) Salicylates Acetaminophen Plasma/Serum Alcohol 11/30/19 11/30/19 11/30/19 05:25 05:25 12:59 WBC 18.4 H RBC 3.10 L Hgb 8.5 L Hct 27.5 L MCH 27 L RDW 20.9 H Plt Count 691 H Lymph % (Auto) 7.1 L [place] % (Auto) 7.7 H [place] # 1.4 H Seg Neutrophils % 83.4 H Seg Neuts % (Manual) Lymphocytes % (Manual) Seg Neutrophils # 15.4 H Seg Neutrophils # Man Lymphocytes # (Manual) Monocytes # (Manual) PT INR APTT ABG pH ABG pO2 ABG HCO3 ABG O2 Saturation ABG Base Excess ABG Hemoglobin Oxyhemoglobin Sodium 146 H Potassium Chloride 107.2 H Carbon Dioxide BUN Creatinine 0.5 L Glucose 132 H POC Glucose 124 H Lactic Acid Calcium Ionized Calcium Phosphorus Magnesium Total Bilirubin AST 246 H ALT 274 H Alkaline Phosphatase 203 H Ammonia Total Creatine Kinase CK-MB (CK-2) CK-MB (CK-2) Rel Index Total Protein 5.4 L Albumin 2.9 L Urine WBC (Auto) Salicylates Acetaminophen Plasma/Serum Alcohol 11/30/19 12/01/19 12/01/19 17:53 00:05 05:10 WBC RBC Hgb Hct MCH RDW Plt Count Lymph % (Auto) [place] % (Auto) [place] # Seg Neutrophils % Seg Neuts % (Manual) Lymphocytes % (Manual) Seg Neutrophils # Seg Neutrophils # Man Lymphocytes # (Manual) Monocytes # (Manual) PT INR APTT ABG pH ABG pO2 ABG HCO3 ABG O2 Saturation ABG Base Excess ABG Hemoglobin Oxyhemoglobin Sodium Potassium Chloride Carbon Dioxide BUN Creatinine Glucose POC Glucose 113 H 143 H 145 H Lactic Acid Calcium Ionized Calcium Phosphorus Magnesium Total Bilirubin AST ALT Alkaline Phosphatase Ammonia Total Creatine Kinase CK-MB (CK-2) CK-MB (CK-2) Rel Index Total Protein Albumin Urine WBC (Auto) Salicylates Acetaminophen Plasma/Serum Alcohol 12/01/19 12/01/19 12/01/19 05:33 08:23 08:23 WBC 22.7 H RBC 2.88 L Hgb 7.9 L Hct 25.2 L MCH 27 L RDW 21.0 H Plt Count 732 H Lymph % (Auto) [place] % (Auto) [place] # Seg Neutrophils % Seg Neuts % (Manual) 91.0 H Lymphocytes % (Manual) 3.0 L Seg Neutrophils # Seg Neutrophils # Man 20.7 H Lymphocytes # (Manual) 0.7 L Monocytes # (Manual) 1.1 H PT INR APTT ABG pH ABG pO2 68.6 L ABG HCO3 34.1 H ABG O2 Saturation ABG Base Excess 9.0 H ABG Hemoglobin 6.5 L Oxyhemoglobin 94.7 L Sodium Potassium Chloride Carbon Dioxide BUN Creatinine 0.5 L Glucose 125 H POC Glucose Lactic Acid Calcium Ionized Calcium Phosphorus Magnesium Total Bilirubin AST ALT Alkaline Phosphatase Ammonia Total Creatine Kinase CK-MB (CK-2) CK-MB (CK-2) Rel Index Total Protein Albumin Urine WBC (Auto) Salicylates Acetaminophen Plasma/Serum Alcohol 12/01/19 12/01/19 12/01/19 13:21 17:54 20:59 WBC RBC Hgb Hct MCH RDW Plt Count Lymph % (Auto) [place] % (Auto) [place] # Seg Neutrophils % Seg Neuts % (Manual) Lymphocytes % (Manual) Seg Neutrophils # Seg Neutrophils # Man Lymphocytes # (Manual) Monocytes # (Manual) PT INR APTT ABG pH ABG pO2 78.3 L ABG HCO3 33.8 H ABG O2 Saturation 94.9 L ABG Base Excess 7.9 H ABG Hemoglobin 11.5 L Oxyhemoglobin 92.3 L Sodium Potassium Chloride Carbon Dioxide BUN Creatinine Glucose POC Glucose 111 H 115 H Lactic Acid Calcium Ionized Calcium Phosphorus Magnesium Total Bilirubin AST ALT Alkaline Phosphatase Ammonia Total Creatine Kinase CK-MB (CK-2) CK-MB (CK-2) Rel Index Total Protein Albumin Urine WBC (Auto) Salicylates Acetaminophen Plasma/Serum Alcohol 12/02/19 12:55 WBC RBC Hgb Hct MCH RDW Plt Count Lymph % (Auto) [place] % (Auto) [place] # Seg Neutrophils % Seg Neuts % (Manual) Lymphocytes % (Manual) Seg Neutrophils # Seg Neutrophils # Man Lymphocytes # (Manual) Monocytes # (Manual) PT INR APTT ABG pH ABG pO2 ABG HCO3 ABG O2 Saturation ABG Base Excess ABG Hemoglobin Oxyhemoglobin Sodium Potassium Chloride Carbon Dioxide BUN Creatinine Glucose POC Glucose 107 H Lactic Acid Calcium Ionized Calcium Phosphorus Magnesium Total Bilirubin AST ALT Alkaline Phosphatase Ammonia Total Creatine Kinase CK-MB (CK-2) CK-MB (CK-2) Rel Index Total Protein Albumin Urine WBC (Auto) Salicylates Acetaminophen Plasma/Serum Alcohol Chest x-ray: pending Allied health notes reviewed: nursing
--- NOTE | 2019-12-03 17:30 | Progress Note ---
Assessment and Plan Assessment and plan: 54-year-old female with a past medical history of Hypertension, Depression, Tobacco use Disorder, Alcohol use Disorder as confirmed by Daughter and pt's mother presents to the hospital status post cardiac arrest. Patient is from home and family called EMS at 22: 27 for the pt who had told family members that she was not feeling good and c/o her chronic hip pain. She urinated and then was speaking, then she " froze and was rigid " per daughter and she became unresponsive and stopped breathing. Immediately, family began CPR. EMS found pt in PEA. Upon their arrival patient in SinuS Tachycardia.. They were unable to intubate patient with a ET tube because she was clenching down therefore Joe airway placed. Patient received Narcan and Epinephrine. Patient's rhythm changed to PEA to sinus bradycardia, to PEA, then to sinus tach after receiving Narcan and Epinephrine. Per the ED physician who evaluated pt, Patient presented with a pulse, intermittent respirations, and bagging support via Joe airway with O2 sat of 100%. Accu-Chek of [address] Rodriguez spoke to patient's family (daughter and mother). MOther is Anh Jesus- [phone] and she would like to be called about pt's progress or notified about the pt.. No seizure activity was noted. They deny that patient had any preceding infection symptoms, cough, fever, complaints of chest pain, shortness of breath, or any bleeding diathesis, melena, hematochezia, hematuria, hematemesis, or abdominal pain. Patient is a known alcoholic and continues to drink per daughter. No history could be obtained from the pt due to her mechanical ventilation. No previous hx of DVT/PE per mother and daughter. - Patient Problems Seizure disorder Current Visit: Yes Status: Acute Plan to address problem: No focal seizure disorder continue Keppra. Anoxic brain injury; reviewed by neurologist EEG showed generalized slowing no seizure or epileptiform activity was noted CT of the head showed no acute abnormality. Neurologist and insurance administrative assistant but document discussion with family discussing about less likelihood of meaningful recovery. Also need for trach and PEG if continued active management. Alcohol abuse Current Visit: Yes Status: Acute Plan to address problem: History of alcohol abuse. Patient does not have delirium tremors. Required restraints. Acute metabolic/toxic encephalopathy: Seroquel added due to intermittent agitation cardiac arrest with successful resuscitation Current Visit: Yes Status: Acute Plan to address problem: Status post cardiorespiratory arrest. 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 . Patient had intact corneal and cough reflex and withdrew lower extremities from pain. Unlikely however any meaningful recovery after extubation. Still appears to have anoxia still has severe anoxic encephalopathy. No new changes. Elevated LFTs Current Visit: Yes Status: Acute Plan to address problem: LFTs not obtained on her last blood work. Obtain LFTs for Tuesday. Likely would not make and change any outcome with patient's prognosis. UTI (urinary tract infection) Current Visit: Yes Status: Acute Plan to address problem: Continue antibiotics Rocephin completed yesterday.. No growth. Antibiotics discontinued. Medically stable. No evidence of fever. HTN (hypertension) Current Visit: No Status: Acute Plan to address problem: Patient continues to have optimal control blood pressure. Metabolic acidosis/alcoholic acidosis/Lactic acidosis Sepsis: Per ID doctor at this point will keep off antibiotics. Sources could be UTI versus pneumonitis versus SBP. UA shows pyuria right upper quadrant ultrasound did not reveal any ascites patient had completed 7 days of ceftriaxone on 11/29/2019. Ischemic hepatitis Current Visit: Yes Status: Acute Poor prognosis The high probability of a clinically significant, sudden or life threatening deterioration of the [pulomnary, neurology] system(s) required my full and direct attention, intervention and personal management. The aggregate critical care time was [35] minutes. This time is in addition to time spent performing reported procedures but includes the following: [v] Data Review and interpretation cv Patient assessment and monitoring of vital signs [v]c Documentation [v] Medication orders and management History Interval history: Patient seen and examined, remains unresponsive and on full respiratory support. Hospitalist Physical - Physical exam Narrative exam: General appearance: Present: no acute distress, other (on vent with sedation, elderly female), not responsive - EENT ENT: no oropharyngeal erythema, no poor dentition, no thrush - Neck Neck: Present: supple - Respiratory Respiratory effort: normal Respiratory: bilateral: diminished (On ventilator.) - Cardiovascular Rhythm: regular Heart Sounds: Absent: systolic murmur, diastolic murmur - Extremities Extremities: no ischemia, pulses intact, pulses symmetrical, normal temperature, normal color Extremity abnormal: edema Peripheral Pulses: within normal limits - Abdominal General gastrointestinal: deferred, non-tender, non-distended, hypoactive bowel sounds - Integumentary Integumentary: Present: clear, warm, dry Neuro: Unresponsive, tongue protruding. - Constitutional Vitals: Temp Pulse Resp BP Pulse Ox 97.5 F L 106 H 21 106/72 97 12/03/19 16:00 12/03/19 16:00 12/03/19 16:00 12/03/19 16:00 12/03/19 16:00 General appearance: Present: no acute distress, other (on vent with sedation, elderly female) Results - Labs CBC & Chem 7: 12/04/19 07:45 12/04/19 04:26 Labs: Laboratory Last Values WBC 22.7 K/mm3 (4.5-11.0) H 12/01/19 08:23 RBC 2.88 M/mm3 (3.65-5.03) L 12/01/19 08:23 Hgb 7.9 gm/dl (10.1-14.3) L 12/01/19 08:23 Hct 25.2 % (30.3-42.9) L 12/01/19 08:23 MCV 88 fl (79-97) 12/01/19 08:23 MCH 27 pg (28-32) L 12/01/19 08:23 MCHC 31 % (30-34) 12/01/19 08:23 RDW 21.0 % (13.2-15.2) H 12/01/19 08:23 Plt Count 732 K/mm3 (140-440) H 12/01/19 08:23 Lymph % (Auto) 7.1 % (13.4-35.0) L 11/30/19 05:25 Leake % (Auto) 7.7 % (0.0-7.3) H 11/30/19 05:25 Eos % (Auto) 1.5 % (0.0-4.3) 11/30/19 05:25 Baso % (Auto) 0.3 % (0.0-1.8) 11/30/19 05:25 Lymph # 1.3 K/mm3 (1.2-5.4) 11/30/19 05:25 Leake # 1.4 K/mm3 (0.0-0.8) H 11/30/19 05:25 Eos # 0.3 K/mm3 (0.0-0.4) 11/30/19 05:25 Baso # 0.0 K/mm3 (0.0-0.1) 11/30/19 05:25 Add Manual Diff Complete 12/01/19 08:23 Total Counted 100 12/01/19 08:23 Seg Neutrophils % 83.4 % (40.0-70.0) H 11/30/19 05:25 Seg Neuts % (Manual) 91.0 % (40.0-70.0) H 12/01/19 08:23 Band Neutrophils % 0 % 12/01/19 08:23 Lymphocytes % (Manual) 3.0 % (13.4-35.0) L 12/01/19 08:23 Reactive Lymphs % (Man) 1.0 % 12/01/19 08:23 Monocytes % (Manual) 5.0 % (0.0-7.3) 12/01/19 08:23 Eosinophils % (Manual) 0 % (0.0-4.3) 12/01/19 08:23 Basophils % (Manual) 0 % (0.0-1.8) 12/01/19 08:23 Metamyelocytes % 0 % 12/01/19 08:23 Myelocytes % 0 % 12/01/19 08:23 Promyelocytes % 0 % 12/01/19 08:23 Blast Cells % 0 % 12/01/19 08:23 Nucleated RBC % Not Reportable 12/01/19 08:23 Seg Neutrophils # 15.4 K/mm3 (1.8-7.7) H 11/30/19 05:25 Seg Neutrophils # Man 20.7 K/mm3 (1.8-7.7) H 12/01/19 08:23 Band Neutrophils # 0.0 K/mm3 12/01/19 08:23 Lymphocytes # (Manual) 0.7 K/mm3 (1.2-5.4) L 12/01/19 08:23 Abs React Lymphs (Man) 0.2 K/mm3 12/01/19 08:23 Monocytes # (Manual) 1.1 K/mm3 (0.0-0.8) H 12/01/19 08:23 Eosinophils # (Manual) 0.0 K/mm3 (0.0-0.4) 12/01/19 08:23 Basophils # (Manual) 0.0 K/mm3 (0.0-0.1) 12/01/19 08:23 Metamyelocytes # 0.0 K/mm3 12/01/19 08:23 Myelocytes # 0.0 K/mm3 12/01/19 08:23 Promyelocytes # 0.0 K/mm3 12/01/19 08:23 Blast Cells # 0.0 K/mm3 12/01/19 08:23 WBC Morphology Not Reportable 12/01/19 08:23 Hypersegmented Neuts Not Reportable 12/01/19 08:23 Hyposegmented Neuts Not Reportable 12/01/19 08:23 Hypogranular Neuts Not Reportable 12/01/19 08:23 Smudge Cells Not Reportable 12/01/19 08:23 Toxic Granulation Not Reportable 12/01/19 08:23 Toxic Vacuolation Not Reportable 12/01/19 08:23 Dohle Bodies Not Reportable 12/01/19 08:23 Pelger-Huet Anomaly Not Reportable 12/01/19 08:23 Dominique Rods Not Reportable 12/01/19 08:23 Platelet Estimate Consistent w auto 12/01/19 08:23 Clumped Platelets Not Reportable 12/01/19 08:23 Plt Clumps, EDTA Not Reportable 12/01/19 08:23 Large Platelets Not Reportable 12/01/19 08:23 Giant Platelets Few 12/01/19 08:23 Platelet Satelliting Not Reportable 12/01/19 08:23 Plt Morphology Comment Not Reportable 12/01/19 08:23 RBC Morphology Not Reportable 12/01/19 08:23 Dimorphic RBCs Not Reportable 12/01/19 08:23 Polychromasia Few 12/01/19 08:23 Hypochromasia Few 12/01/19 08:23 Poikilocytosis Not Reportable 12/01/19 08:23 Anisocytosis Not Reportable 12/01/19 08:23 Microcytosis Not Reportable 12/01/19 08:23 Macrocytosis Not Reportable 12/01/19 08:23 Spherocytes Not Reportable 12/01/19 08:23 Pappenheimer Bodies Not Reportable 12/01/19 08:23 Sickle Cells Not Reportable 12/01/19 08:23 Target Cells 1+ 12/01/19 08:23 Tear Drop Cells Not Reportable 12/01/19 08:23 Ovalocytes Not Reportable 12/01/19 08:23 Helmet Cells Not Reportable 12/01/19 08:23 Frias-Fitzpatrick Bodies Not Reportable 12/01/19 08:23 Junction Rings Not Reportable 12/01/19 08:23 [place] Cells Not Reportable 12/01/19 08:23 Bite Cells Not Reportable 12/01/19 08:23 Crenated Cell Not Reportable 12/01/19 08:23 Elliptocytes Not Reportable 12/01/19 08:23 Acanthocytes (Spur) Not Reportable 12/01/19 08:23 Rouleaux Not Reportable 12/01/19 08:23 Hemoglobin C Crystals Not Reportable 12/01/19 08:23 Schistocytes Not Reportable 12/01/19 08:23 Malaria parasites Not Reportable 12/01/19 08:23 Gregg Bodies Not Reportable 12/01/19 08:23 Hem Pathologist Commnt No 12/01/19 08:23 PT 17.0 Sec. (12.2-14.9) H 11/23/19 03:47 INR 1.36 (0.87-1.13) H 11/23/19 03:47 APTT 128.2 Sec. (24.2-36.6) H* 11/23/19 03:47 Heparin Anti-Xa Level 0.31 U.I./ml (0.3-0.7) 11/23/19 09:03 ABG pH 7.416 pH Units (7.350-7.450) 12/01/19 20:59 ABG pCO2 53.9 mm Hg 12/01/19 20:59 ABG pO2 78.3 mm Hg (80.0-90.0) L 12/01/19 20:59 ABG HCO3 33.8 mmol/L (20.0-26.0) H 12/01/19 20:59 ABG O2 Saturation 94.9 % (95.0-99.0) L 12/01/19 20:59 ABG O2 Content 15.0 (0.0-44) 12/01/19 20:59 ABG Base Excess 7.9 mmol/L (-2.0-3.0) H 12/01/19 20:59 ABG Hemoglobin 11.5 gm/dl (12.0-16.0) L 12/01/19 20:59 ABG Carboxyhemoglobin 2.3 % (0.0-5.0) 12/01/19 20:59 ABG Methemoglobin 0.5 % (0.0-1.5) 12/01/19 20:59 Oxyhemoglobin 92.3 % (95.0-99.0) L 12/01/19 20:59 FiO2 30 % 12/01/19 20:59 Sodium 139 mmol/L (137-145) 12/01/19 08:23 Potassium 4.4 mmol/L (3.6-5.0) 12/01/19 08:23 Chloride 98.5 mmol/L (98-107) 12/01/19 08:23 Carbon Dioxide 29 mmol/L (22-30) 12/01/19 08:23 Anion Gap 16 mmol/L 12/01/19 08:23 BUN 17 mg/dL (7-17) 12/01/19 08:23 Creatinine 0.5 mg/dL (0.7-1.2) L 12/01/19 08:23 Estimated GFR > 60 ml/min 12/01/19 08:23 BUN/Creatinine Ratio 34 % 12/01/19 08:23 Glucose 125 mg/dL (65-100) H 12/01/19 08:23 POC Glucose 107 (70-105) H 12/02/19 12:55 Lactic Acid 1.80 mmol/L (0.7-2.0) 11/25/19 05:05 Calcium 9.4 mg/dL (8.4-10.2) 12/01/19 08:23 Ionized Calcium 4.5 mg/dL (4.8-5.6) L 11/23/19 06:32 Phosphorus 4.20 mg/dL (2.5-4.5) D 11/28/19 08:59 Magnesium 2.30 mg/dL (1.7-2.3) 11/29/19 13:41 Total Bilirubin 0.30 mg/dL (0.1-1.2) 11/30/19 05:25 AST 246 units/L (5-40) H 11/30/19 05:25 ALT 274 units/L (7-56) H 11/30/19 05:25 Alkaline Phosphatase 203 units/L (35-129) H 11/30/19 05:25 Ammonia 42.0 umol/L (25-60) 11/29/19 13:41 Total Creatine Kinase 139 units/L (30-135) H 11/22/19 23:27 CK-MB (CK-2) 8.3 ng/mL (0.0-4.0) H 11/22/19 23:27 CK-MB (CK-2) Rel Index 5.9 (0-4) H 11/22/19 23:27 Troponin T < 0.010 ng/mL (0.00-0.029) 11/22/19 23:27 Total Protein 5.4 g/dL (6.3-8.2) L 11/30/19 05:25 Albumin 2.9 g/dL (3.9-5) L 11/30/19 05:25 Albumin/Globulin Ratio 1.2 % 11/30/19 05:25 Lipase 18 units/L (13-60) 11/23/19 00:34 Procalcitonin 1.09 ng/mL (<0.15) 11/23/19 04:53 Urine Color Yellow (Yellow) 11/22/19 23:17 Urine Turbidity Cloudy (Clear) 11/22/19 23:17 Urine pH 6.0 (5.0-7.0) 11/22/19 23:17 Ur Specific [place] 1.010 (1.003-1.030) 11/22/19 23:17 Urine Protein >500 mg/dL (Negative) 11/22/19 23:17 Urine Glucose (UA) >=500 mg/dL (Negative) 11/22/19 23:17 Urine Ketones 20 mg/dL (Negative) 11/22/19 23:17 Urine Blood Mod (Negative) 11/22/19 23:17 Urine Nitrite Neg (Negative) 11/22/19 23:17 Urine Bilirubin Neg (Negative) 11/22/19 23:17 Urine Urobilinogen 4.0 mg/dL (<2.0) 11/22/19 23:17 Ur Leukocyte Esterase Neg (Negative) 11/22/19 23:17 Urine WBC (Auto) 40.0 /HPF (0.0-6.0) H 11/22/19 23:17 Urine RBC (Auto) 10.0 /HPF (0.0-6.0) 11/22/19 23:17 U Epithel Cells (Auto) 1.0 /HPF (0-13.0) 11/22/19 23:17 Urine Bacteria (Auto) 2+ /HPF (Negative) 11/22/19 23:17 Urine Mucus Few /HPF 11/22/19 23:17 Salicylates < 0.3 mg/dL (2.8-20.0) L 11/22/19 23:27 Urine Opiates Screen Presumptive negative 11/22/19 23:17 Urine Methadone Screen Presumptive negative 11/22/19 23:17 Acetaminophen < 5.0 ug/mL (10.0-30.0) L 11/22/19 23:27 Ur Barbiturates Screen Presumptive negative 11/22/19 23:17 Ur Phencyclidine Scrn Presumptive negative 11/22/19 23:17 Ur Amphetamines Screen Presumptive negative 11/22/19 23:17 U Benzodiazepines Scrn Presumptive negative 11/22/19 23:17 Urine Cocaine Screen Presumptive negative 11/22/19 23:17 U Marijuana (THC) Screen Presumptive negative 11/22/19 23:17 Drugs of Abuse Note Disclamer 11/22/19 23:17 Plasma/Serum Alcohol 0.08 % (0-0.07) H 11/22/19 23:27 Hepatitis A IgM Ab Non-reactive (NonReactive) 11/23/19 01:19 Hep Bs Antigen Non-reactive (Negative) 11/23/19 01:19 Hep B Core IgM Ab Non-reactive (NonReactive) 11/23/19 01:19 Hepatitis C Antibody Non-reactive (NonReactive) 11/23/19 01:19 Dela Cruz/IV: Voiding Method External Female Catheter IV Catheter Type [Right Wrist] Peripheral IV IV Catheter Type [Left Wrist] Peripheral IV IV Catheter Type [Left Peripheral IV Antecubital] IV Catheter Type [Right INT / Saline Lock Forearm] IV Catheter Type [Left Hand] Peripheral IV Active Medications - Current Medications Current Medications: Generic Name Dose Route Start Last Admin Trade Name Freq PRN Reason Stop Dose Admin Lipase/Protease/Amylase 1 each 11/23/19 11:[address] 10,500 Unit FEEDTUBE PRN PRN For Clogged Feeding Tube Chlordiazepoxide HCl 25 mg 11/28/19 14:00 12/03/19 14:20 Librium PO 25 mg Q8H LUCHO Administration Fentanyl 50 mcg 11/28/19 15:26 Sublimaze IV Q10MIN PRN ANALGESIA Heparin Sodium (Porcine) 5,000 unit 11/23/19 22:00 12/03/19 10:50 Heparin SUB-Q 5,000 unit Q12HR LUCHO Administration Hydralazine HCl 10 mg 11/24/19 00:45 11/28/19 08:56 Apresoline IV 10 mg Q6H PRN Administration SBP > 160 Hydrophilic Ointment 1 applic 11/22/19 23:23 Vaseline Lip Therapy TP Q2HR PRN Dry Lips Fentanyl Citrate 2,000 mcg in 100 mls @ 2.74 mls/hr 11/28/19 16:00 12/03/19 10:55 Fentanyl Drip Premix IV 0 mcg/kg/hr TITR LUCHO 0 mls/hr Titration Protocol 1 MCG/KG/HR Lansoprazole 30 mg 11/27/19 10:00 12/03/19 10:50 Prevacid Solutab FEEDTUBE 30 mg QDAY LUCHO Administration Levetiracetam 500 mg 11/29/19 10:00 12/03/19 10:50 Keppra PO 500 mg BID LUCHO Administration Lorazepam 2 mg 11/26/19 11:09 12/02/19 06:50 Ativan IV 2 mg Q4H PRN Administration Agitation Multi-Ingred Cream/Lotion/Oil/Oint 1 applic 11/22/19 23:23 Artificial Tears Ophth Oint OU Q4HR PRN Dry Eye(s) Quetiapine Fumarate 300 mg 11/30/19 22:00 12/03/19 10:50 Seroquel PO 300 mg BID LUCHO Administration Simple Syrup 15 ml 11/23/19 11:50 Simple Syrup FEEDTUBE PRN PRN Hypoglycemia Simple Syrup 30 ml 11/23/19 11:50 Simple Syrup FEEDTUBE PRN PRN Hypoglycemia Sodium Bicarbonate 325 mg 11/23/19 11:50 Sodium Bicarbonate FEEDTUBE PRN PRN For Clogged Feeding Tube Nutrition/Malnutrition Assess - Dietary Evaluation Nutrition/Malnutrition Findings: Nutrition Notes Start: 11/23/19 11:29 Freq: Status: Active Protocol: Document 11/28/19 10:27 LM (Rec: 11/28/19 10:35 LM [id number]) Nutrition Notes Initial or Follow up Reassessment Current Diagnosis Hypertension Other Pertinent Diagnosis Cardaic arrest, ETOH dependence, UTI Current Diet Vital AF 1.2 at 50 ml/hr Labs/Tests Na 146 K 3.3 BUN 25 Cr 0.6 Pertinent Medications Reviewed Height 5 ft 6 in Weight 54.8 kg [place] Body Weight (kg) 59.09 BMI 19.5 Subjective/Other Information TF restarted. Pt tolerating TF at 50 ml/hr. Percent of energy/protein needs met: 100%/100% Burn Absent Trauma Absent GI Symptoms None Current % PO Negligible Minimum of two criteria No Muscle Mass Mild Depletion (non-severe) #1 Nutrition Diagnosis Inadequate oral intake Diagnosis Progress(for reassessment Continues documentation) Is patient on ventilator? Yes Is Patient Ambulatory and/or Out of Bed No REE-([place]-St. Jeor-confined to bed) 1402.224 Calculation Used for Recommendations [facility] Additional Notes Protein: 66-110g (1.2-2g/kg) Fluid: 1 ml/kcal Nutrition Intervention Change Diet Order: TF Nutrition Support: Vital AF 1.2 at 50 ml/hr Flush 200 ml q4h for hypernatremia Flush 80 ml q4h once hypernatremia resolves Kcal 1,440 Protein (gm) 90 Fluid (mL) 973 Goal #1 TF tolerance Goal #2 Meet at least 80% of energy and protein needs via TF Anticipated Discharge Needs: unable to determine at this time Follow-Up By: 12/05/19 Additional Comments F/U for TF tolerance
--- NOTE | 2019-12-03 18:32 | Progress Note ---
Assessment and Plan Cultures: 11/22/2019 urine culture:no significant growth 11/22/2019 tracheal aspirate culture: H. influenzae 11/23/2019 blood culture: No growth A/P: 54-year-old female with hypertension, depression, tobacco use, alcohol abuse was brought into the emergency room on 11/22/2019 after she went into respiratory arrest at home requiring CPR by EMS: #Sepsis: Source could be UTI versus pneumonitis versus SBP. UA showed pyuria. RUQ US showed no ascites. Completed 7 days of Ceftriaxone on 11/29/2019. #Pneumonitis, acute respiratory failure: Possibly aspiration. No pneumonia seen. On mechanical ventilation. #Elevated LFTs, alcohol abuse, status post arrest requiring CPR: Trend LFTs. RUQ US showed no ascites. #Acute encephalopathy: Likely multifactorial from alcohol abuse, status post arrest, electrolyte abnormalities. #Diarrhea: likely combination of tube feeds and lactulose. Recs: continue off abx trend CBC and LFTs overall guarded prognosis Freddy Plata MD [facility] M: [phone] O: [phone] F: [phone] Subjective Date of service: 12/03/19 Principal diagnosis: Ac cardiopulmonary arrest; Ac hypoxemic resp failure; Acute encephalopathy Interval history: No change, afebrile, no new white count. Remains off antibiotics Objective - Exam Narrative Exam: Constitutional: comatose, intubated Head, Ears, Nose: Normocephalic, atraumatic. External ears Eyes: Conjunctivae/corneas clear. No icterus. No ptosis. Neck: intubated Oral: intubated Cardiovascular: S1, S2 normal Respiratory: Good air entry, clear to auscultation bilaterally GI: slightly distended, bowel sounds present. Rectal tube present with liquid stool Musculoskeletal: No pedal edema, no cyanosis. Skin: No rash or abscess Hem/Lymphatic: No palpable cervical or supraclavicular nodes. No lymphangitis Psych: no agitation. Neurological: comatose, intubated, on vent - Constitutional Vitals: Vital Signs Temp Pulse Resp BP Pulse Ox 97.5 F L 107 H 26 H 119/77 97 12/03/19 16:00 12/03/19 17:55 12/03/19 17:55 12/03/19 17:55 12/03/19 17:55 Temperature -Last 24 Hours Temperature 97.5 F Temperature 98.1 F Temperature 99.4 F Temperature 99.5 F Temperature 99.2 F Temperature 99.4 F Temperature 98.9 F - Labs CBC & Chem 7: 12/01/19 08:23 12/01/19 08:23
[2019-12-03 20:12] LABS: ABG Base Excess 8.4 mmol/L (-2.0-3.0); ABG HCO3 33.5 mmol/L (20.0-26.0); ABG Methemoglobin 0.4 % (0.0-1.5); ABG Oxygen Saturation 93.5 % (95.0-99.0); ABG PCO2 50.7 mm Hg; ABG PH 7.437 pH Units (7.350-7.450); ABG PO2 68.3 mm Hg (80.0-90.0)
[2019-12-04] MEDS: fentaNYL DRIP Premix 2,000 MCG/100 ML BAG IV SCH (00:14)
[2019-12-04 05:12] LABS: Hematocrit 23.6 % (30.3-42.9); Hemoglobin 7.4 gm/dl (10.1-14.3); Mean Corpuscular HGB Conc 31 % (30-34); Mean Corpuscular Volume 88 fl (79-97); Platelet Count 838 K/mm3 (140-440); Red Blood Count 2.69 M/mm3 (3.65-5.03); Red Cell Distribution Width 19.9 % (13.2-15.2)
[2019-12-04 05:26] LABS: BUN/Creatinine Ratio 35; Blood Urea Nitrogen 21 mg/dL (7-17); Calcium 9.5 mg/dL (8.4-10.2); Hemolysis Index 25
[2019-12-04] MEDS: chlordiazePOXIDE 25 MG CAP PO SCH ×3 (06:11→21:43)
[2019-12-04 08:31] LABS: Basophils # (Auto) 0.1 K/mm3 (0.0-0.1); Basophils % (Auto) 0.6 % (0.0-1.8); Eosinophils # (Auto) 0.1 K/mm3 (0.0-0.4); Eosinophils % (Auto) 0.5 % (0.0-4.3); Hemoglobin 7.9 gm/dl (10.1-14.3); Lymphocytes # (Auto) 1.8 K/mm3 (1.2-5.4); Lymphocytes % (Auto) 11.3 % (13.4-35.0); Monocytes # (Auto) 2.4 K/mm3 (0.0-0.8); Monocytes % (Auto) 15.2 % (0.0-7.3)
[2019-12-04 09:12] LABS: Hematocrit 25.1 % (30.3-42.9); Mean Corpuscular Volume 87 fl (79-97); Red Blood Count 2.88 M/mm3 (3.65-5.03)
[2019-12-04 09:13] LABS: Mean Corpuscular HGB Conc 32 % (30-34); Platelet Count 839 K/mm3 (140-440); Red Cell Distribution Width 20.4 % (13.2-15.2)
[2019-12-04] MEDS: QUEtiapine 100 MG TAB PO SCH ×2 (09:36→21:45)
[2019-12-04] MEDS: HEPARIN 5,000 UNIT/1 ML VIAL SUB-Q SCH ×2 (09:36→21:40)
[2019-12-04] MEDS: LANSOPRAZOLE 30 MG SOLUTAB FEEDTUBE SCH (09:36)
[2019-12-04] MEDS: levETIRAcetam 500 MG/5 ML ORAL LIQD PO SCH ×2 (09:36→21:42)
[2019-12-04] MEDS ORDERED: DEXMEDETOMIDINE 400 MCG in SODIUM CHLORIDE 0.9% 100 ML IV SCH (14:00)
--- NOTE | 2019-12-04 15:11 | Progress Note ---
Assessment and Plan Acute cardiopulmonary arrest with ROSC Acute hypoxemic respiratory failure on MVS Acute metabolic-toxic encephalopathy Metabolic acidosis/alcoholic acidosis/Lactic acidosis Ischemic hepatitis Leucocytosis with lactic acidosis Tobacco use disorder ALcohol use Disorder Hypokalemia High grade fevers - follow CXR - increased Librium to 50 mg po q8h - begin Precedex once current fentanyl bag is done - place 25 mics/hr fentanyl patch - continue to rest on AC mode qhs - continue Seroquel for tentative delirium and to spare IV sedation - get ABG prn at this point - continue empiric Antibiotics per ID recommendations; de-escalate based on HILARIO /sensitivities / clinical progress - CIWA protocol - rest opn AC mode qhs for now - VAP bundle addressed (continue aspiration precautions, HOB>40) - ontinue daily SAT's and assessment for readiness for SBT (For PSV trial today) - Continue Intermittent sedation until patient's neurologic state can be better evaluated - begin Seroquel for agitation / to spare IV sedatives - Continue VTE and Stress ulcer prophylaxis - Continue enteric nutritional support. Monitor glycemic control, with target blood glucose 140-180 mg/dL while critically ill (Avoid hypoglycemia) - Continue daily SAT assessment as tolerated - Continue to wean supplemental oxygen for target O2 sat's > 90% - ABG and CXR prn - continue bronchodilators with p[ulmonary hygiene per RT - Continue to trend leukocytosis and lactic acidosis - Continue to treat for hepatic encephalopathy- especially with elevated ammonia levels- lactulose - Continue thiamine, multivitamin and electrolyte replacement - Continue to avoid nephrotoxins, adjust all medications fro GFR and CrCL - Continue bronchodilators with pulmonary hygiene - Continue to avoid benzodiazepines , as much as possible, to reduce the possibility of delirium - Continue prn analgesia per CPOT score - Continue to maintain of sleep-wake cycle, avoid delirium - PT/OT/ROM exercises- awaiting PT/OT evaluation - Continue mobility protocol and skin assessment per protocol for pressure ulcer prevention - Continue to monitor for clinical seizures - Continue Nicotine withdrawal precautions, alcohol withdrawal precautions - continue other care per attending / other consultants ..... re-evaluate in am & prn CONDITION: CRITICAL PROGNOSIS: GUARDED CODE STATUS: FULL CODE The high probability of a clinically significant, sudden or life-threatening deterioration of the [respiratory, cardiovascular,GI/hepatology] system(s) required my full and direct attention, intervention and personal management. The aggregate critical care time was [35] minutes without overlap. Time includes spent on; [x] Data Review and interpretation [x] Patient assessment and monitoring of vital signs [x] Documentation [x] Medication orders and management Subjective Date of service: 12/04/19 Principal diagnosis: Ac cardiopulmonary arrest; Ac hypoxemic resp failure; Acute encephalopathy Interval history: Patient is seen today for: Acute cardiopulmonary arrest with ROSC; Acute hypoxemic respiratory failure; Acute metabolic-toxic encephalopathy; Ischemic hepatitis; Leucocytosis with lactic acidosis; Tobacco use disorder; Alcohol use Disorder; Hypokalemia; High grade fevers Seen and examined at bedside; 24hour events reviewed; nursing and respiratory care staff consulted; no adverse overnight events reported to me; resting peacefully in bed; agitation worse today and preventing SBT; AMS is persistent; No emesis or overt aspiration and no overt seizures Objective Vital Signs - 12hr 12/04/19 12/04/19 12/04/19 03:30 03:34 04:00 Temperature 99.4 F Pulse Rate 105 H 106 H Pulse Rate [ 120 H From Monitor] Respiratory 12 12 Rate Blood Pressure 112/72 101/67 O2 Sat by Pulse 100 100 Oximetry 12/04/19 12/04/19 12/04/19 04:30 05:00 05:30 Temperature Pulse Rate 103 H 102 H 102 H Pulse Rate [ From Monitor] Respiratory 12 12 12 Rate Blood Pressure 104/72 111/74 117/74 O2 Sat by Pulse 100 100 100 Oximetry 12/04/19 12/04/19 12/04/19 06:00 06:30 07:00 Temperature Pulse Rate 103 H 103 H 105 H Pulse Rate [ From Monitor] Respiratory 12 12 12 Rate Blood Pressure 115/76 116/79 110/73 O2 Sat by Pulse 100 100 100 Oximetry 12/04/19 12/04/19 12/04/19 07:30 08:00 08:30 Temperature 100.2 F H Pulse Rate 104 H 105 H 105 H Pulse Rate [ 105 H From Monitor] Respiratory 12 12 12 Rate Blood Pressure 116/80 123/81 117/79 O2 Sat by Pulse 100 100 100 Oximetry 12/04/19 12/04/19 12/04/19 09:00 09:17 09:30 Temperature Pulse Rate 106 H 105 H 108 H Pulse Rate [ From Monitor] Respiratory 12 12 Rate Blood Pressure 115/77 115/77 114/74 O2 Sat by Pulse 100 100 100 Oximetry 12/04/19 12/04/19 12/04/19 10:00 10:30 11:00 Temperature Pulse Rate 112 H 113 H 112 H Pulse Rate [ From Monitor] Respiratory 12 12 12 Rate Blood Pressure 109/73 102/65 108/69 O2 Sat by Pulse 100 100 100 Oximetry 12/04/19 12/04/19 12/04/19 11:18 11:30 12:00 Temperature 99.8 F H Pulse Rate 111 H 111 H 111 H Pulse Rate [ 111 H From Monitor] Respiratory 12 12 Rate Blood Pressure 108/69 101/65 97/65 O2 Sat by Pulse 100 99 100 Oximetry 12/04/19 12/04/19 12:30 13:00 Temperature Pulse Rate 110 H 110 H Pulse Rate [ From Monitor] Respiratory 12 12 Rate Blood Pressure 113/76 105/70 O2 Sat by Pulse 100 100 Oximetry Constitutional: no acute distress, other (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, orally intuabted ETT at 23 cm at the lip to mVS, mild dys-synchrony) Eyes: non-icteric ENT: oropharynx moist, other (ETT 23 cm AMALIA) Neck: supple, no lymphadenopathy, no JVD Effort: mildly labored Ascultation: Bilateral: diminished breath sounds, rhonchi Percussion: Bilateral: not dull Cardiovascular: regular rate and rhythm (tachycardia), other (S1,S2) Gastrointestinal: normoactive bowel sounds, soft, non-tender, non-distended Integumentary: normal Extremities: no cyanosis, no edema, pulses normal, no ischemia or petechiae Neurologic: unable to assess, other (awake but not tracking voice ) Psychiatric: other (Psychiatric: Unable to assess) CBC and BMP: 12/04/19 07:45 12/04/19 04:26 ABG, PT/INR, D-dimer: ABG ABG pH 7.437 pH Units (7.350-7.450) 12/03/19 20:00 ABG pCO2 50.7 mm Hg 12/03/19 20:00 ABG pO2 68.3 mm Hg (80.0-90.0) L 12/03/19 20:00 ABG O2 Saturation 93.5 % (95.0-99.0) L 12/03/19 20:00 PT/INR, D-dimer PT 17.0 Sec. (12.2-14.9) H 11/23/19 03:47 INR 1.36 (0.87-1.13) H 11/23/19 03:47 Abnormal lab findings: Abnormal Labs 11/22/19 11/22/19 11/22/19 23:17 23:18 23:27 WBC 21.2 H RBC 3.59 L Hgb 9.8 L Hct MCH 27 L RDW 18.6 H Plt Count 454 H Lymph % (Auto) [place] % (Auto) [place] # Seg Neutrophils % Seg Neuts % (Manual) 86.0 H Lymphocytes % (Manual) 9.0 L Seg Neutrophils # Seg Neutrophils # Man 18.2 H Lymphocytes # (Manual) Monocytes # (Manual) 1.1 H PT INR APTT ABG pH ABG pO2 ABG HCO3 ABG O2 Saturation ABG Base Excess ABG Hemoglobin Oxyhemoglobin Sodium Potassium Chloride Carbon Dioxide BUN Creatinine Glucose POC Glucose 53 L Lactic Acid Calcium Ionized Calcium Phosphorus Magnesium Total Bilirubin AST ALT Alkaline Phosphatase Ammonia Total Creatine Kinase CK-MB (CK-2) CK-MB (CK-2) Rel Index Total Protein Albumin Urine WBC (Auto) 40.0 H Salicylates Acetaminophen Plasma/Serum Alcohol 11/22/19 11/22/19 11/22/19 23:27 23:27 23:27 WBC RBC Hgb Hct MCH RDW Plt Count Lymph % (Auto) [place] % (Auto) [place] # Seg Neutrophils % Seg Neuts % (Manual) Lymphocytes % (Manual) Seg Neutrophils # Seg Neutrophils # Man Lymphocytes # (Manual) Monocytes # (Manual) PT INR APTT ABG pH ABG pO2 ABG HCO3 ABG O2 Saturation ABG Base Excess ABG Hemoglobin Oxyhemoglobin Sodium Potassium 2.4 L* Chloride 85.1 L Carbon Dioxide 19 L BUN Creatinine 0.5 L Glucose 261 H POC Glucose Lactic Acid Calcium Ionized Calcium Phosphorus Magnesium Total Bilirubin AST 609 H ALT 152 H Alkaline Phosphatase 160 H Ammonia 117.0 H Total Creatine Kinase 139 H CK-MB (CK-2) 8.3 H CK-MB (CK-2) Rel Index 5.9 H Total Protein Albumin 3.6 L Urine WBC (Auto) Salicylates < 0.3 L Acetaminophen Plasma/Serum Alcohol 11/22/19 11/22/19 11/23/19 23:27 23:27 01:10 WBC RBC Hgb Hct MCH RDW Plt Count Lymph % (Auto) [place] % (Auto) [place] # Seg Neutrophils % Seg Neuts % (Manual) Lymphocytes % (Manual) Seg Neutrophils # Seg Neutrophils # Man Lymphocytes # (Manual) Monocytes # (Manual) PT INR APTT ABG pH 7.273 L ABG pO2 209.7 H ABG HCO3 ABG O2 Saturation 99.2 H ABG Base Excess -3.9 L ABG Hemoglobin 10.6 L Oxyhemoglobin 93.9 L Sodium Potassium Chloride Carbon Dioxide BUN Creatinine Glucose POC Glucose Lactic Acid Calcium Ionized Calcium Phosphorus Magnesium Total Bilirubin AST ALT Alkaline Phosphatase Ammonia Total Creatine Kinase CK-MB (CK-2) CK-MB (CK-2) Rel Index Total Protein Albumin Urine WBC (Auto) Salicylates Acetaminophen < 5.0 L Plasma/Serum Alcohol 0.08 H 11/23/19 11/23/19 11/23/19 01:19 01:19 03:47 WBC RBC Hgb Hct MCH RDW Plt Count Lymph % (Auto) [place] % (Auto) [place] # Seg Neutrophils % Seg Neuts % (Manual) Lymphocytes % (Manual) Seg Neutrophils # Seg Neutrophils # Man Lymphocytes # (Manual) Monocytes # (Manual) PT 16.3 H INR 1.29 H APTT ABG pH ABG pO2 ABG HCO3 ABG O2 Saturation ABG Base Excess ABG Hemoglobin Oxyhemoglobin Sodium Potassium Chloride Carbon Dioxide BUN Creatinine Glucose POC Glucose Lactic Acid 2.10 H* 5.00 H* Calcium Ionized Calcium Phosphorus Magnesium Total Bilirubin AST ALT Alkaline Phosphatase Ammonia Total Creatine Kinase CK-MB (CK-2) CK-MB (CK-2) Rel Index Total Protein Albumin Urine WBC (Auto) Salicylates Acetaminophen Plasma/Serum Alcohol 11/23/19 11/23/19 11/23/19 03:47 03:47 04:53 WBC RBC Hgb 9.4 L Hct MCH RDW Plt Count Lymph % (Auto) [place] % (Auto) [place] # Seg Neutrophils % Seg Neuts % (Manual) Lymphocytes % (Manual) Seg Neutrophils # Seg Neutrophils # Man Lymphocytes # (Manual) Monocytes # (Manual) PT 17.0 H INR 1.36 H APTT 128.2 H* ABG pH ABG pO2 ABG HCO3 ABG O2 Saturation ABG Base Excess ABG Hemoglobin Oxyhemoglobin Sodium Potassium Chloride Carbon Dioxide 18 L BUN Creatinine 0.5 L Glucose 105 H POC Glucose Lactic Acid Calcium 8.3 L Ionized Calcium Phosphorus 2.40 L Magnesium Total Bilirubin 1.30 H AST 761 H ALT 158 H Alkaline Phosphatase 143 H Ammonia Total Creatine Kinase CK-MB (CK-2) CK-MB (CK-2) Rel Index Total Protein Albumin 2.8 L Urine WBC (Auto) Salicylates Acetaminophen Plasma/Serum Alcohol 11/23/19 11/23/19 11/23/19 05:12 06:32 06:32 WBC 16.8 H RBC 3.31 L Hgb 8.9 L Hct 28.7 L MCH 27 L RDW 18.6 H Plt Count Lymph % (Auto) [place] % (Auto) [place] # Seg Neutrophils % Seg Neuts % (Manual) 94.0 H Lymphocytes % (Manual) 1.0 L Seg Neutrophils # Seg Neutrophils # Man 15.8 H Lymphocytes # (Manual) 0.2 L Monocytes # (Manual) PT INR APTT ABG pH ABG pO2 ABG HCO3 ABG O2 Saturation ABG Base Excess -3.2 L ABG Hemoglobin 9.0 L Oxyhemoglobin 93.6 L Sodium Potassium Chloride Carbon Dioxide BUN Creatinine Glucose POC Glucose Lactic Acid Calcium Ionized Calcium 4.5 L Phosphorus Magnesium Total Bilirubin AST ALT Alkaline Phosphatase Ammonia Total Creatine Kinase CK-MB (CK-2) CK-MB (CK-2) Rel Index Total Protein Albumin Urine WBC (Auto) Salicylates Acetaminophen Plasma/Serum Alcohol 11/23/19 11/24/19 11/24/19 06:32 04:35 04:35 WBC RBC Hgb Hct MCH RDW Plt Count Lymph % (Auto) [place] % (Auto) [place] # Seg Neutrophils % Seg Neuts % (Manual) Lymphocytes % (Manual) Seg Neutrophils # Seg Neutrophils # Man Lymphocytes # (Manual) Monocytes # (Manual) PT INR APTT ABG pH ABG pO2 ABG HCO3 ABG O2 Saturation ABG Base Excess ABG Hemoglobin Oxyhemoglobin Sodium Potassium Chloride Carbon Dioxide BUN Creatinine Glucose POC Glucose Lactic Acid 3.30 H* Calcium Ionized Calcium Phosphorus Magnesium 1.40 L Total Bilirubin AST ALT Alkaline Phosphatase Ammonia 98.0 H Total Creatine Kinase CK-MB (CK-2) CK-MB (CK-2) Rel Index Total Protein Albumin Urine WBC (Auto) Salicylates Acetaminophen Plasma/Serum Alcohol 11/24/19 11/25/19 11/25/19 05:22 04:34 05:05 WBC 17.3 H RBC 2.88 L Hgb 7.8 L Hct 24.6 L MCH 27 L RDW 18.5 H Plt Count Lymph % (Auto) 7.7 L [place] % (Auto) 9.7 H [place] # 1.7 H Seg Neutrophils % 82.2 H Seg Neuts % (Manual) Lymphocytes % (Manual) Seg Neutrophils # 14.2 H Seg Neutrophils # Man Lymphocytes # (Manual) Monocytes # (Manual) PT INR APTT ABG pH 7.475 H ABG pO2 ABG HCO3 29.4 H 32.3 H ABG O2 Saturation ABG Base Excess 5.4 H 6.9 H ABG Hemoglobin 9.0 L 10.6 L Oxyhemoglobin 94.3 L Sodium Potassium Chloride Carbon Dioxide BUN Creatinine Glucose POC Glucose Lactic Acid Calcium Ionized Calcium Phosphorus Magnesium Total Bilirubin AST ALT Alkaline Phosphatase Ammonia Total Creatine Kinase CK-MB (CK-2) CK-MB (CK-2) Rel Index Total Protein Albumin Urine WBC (Auto) Salicylates Acetaminophen Plasma/Serum Alcohol 11/25/19 11/25/19 11/26/19 05:05 22:46 03:31 WBC RBC Hgb Hct MCH RDW Plt Count Lymph % (Auto) [place] % (Auto) [place] # Seg Neutrophils % Seg Neuts % (Manual) Lymphocytes % (Manual) Seg Neutrophils # Seg Neutrophils # Man Lymphocytes # (Manual) Monocytes # (Manual) PT INR APTT ABG pH 7.459 H ABG pO2 ABG HCO3 34.2 H ABG O2 Saturation ABG Base Excess 9.4 H ABG Hemoglobin 7.6 L Oxyhemoglobin 94.8 L Sodium 152 H D 147 H Potassium 2.3 L* D 2.8 L* D Chloride 107.8 H Carbon Dioxide 31 H D 33 H BUN Creatinine 0.6 L 0.6 L Glucose 148 H 177 H POC Glucose Lactic Acid Calcium Ionized Calcium Phosphorus Magnesium Total Bilirubin AST 105 H ALT 71 H Alkaline Phosphatase 155 H Ammonia Total Creatine Kinase CK-MB (CK-2) CK-MB (CK-2) Rel Index Total Protein 5.2 L D Albumin 2.9 L Urine WBC (Auto) Salicylates Acetaminophen Plasma/Serum Alcohol 11/26/19 11/26/19 11/27/19 08:24 08:24 04:20 WBC 12.0 H RBC 3.00 L Hgb 8.0 L 9.3 L Hct 25.9 L 29.7 L MCH 27 L RDW 18.5 H Plt Count Lymph % (Auto) [place] % (Auto) [place] # Seg Neutrophils % Seg Neuts % (Manual) 89.0 H Lymphocytes % (Manual) 4.0 L Seg Neutrophils # Seg Neutrophils # Man 10.7 H Lymphocytes # (Manual) 0.5 L Monocytes # (Manual) PT INR APTT ABG pH ABG pO2 ABG HCO3 ABG O2 Saturation ABG Base Excess ABG Hemoglobin Oxyhemoglobin Sodium 146 H Potassium 3.4 L D Chloride Carbon Dioxide BUN Creatinine 0.5 L Glucose 165 H POC Glucose Lactic Acid Calcium Ionized Calcium Phosphorus Magnesium Total Bilirubin AST 57 H ALT Alkaline Phosphatase 166 H Ammonia Total Creatine Kinase CK-MB (CK-2) CK-MB (CK-2) Rel Index Total Protein Albumin 2.9 L Urine WBC (Auto) Salicylates Acetaminophen Plasma/Serum Alcohol 11/27/19 11/27/19 11/27/19 04:28 04:28 04:42 WBC RBC Hgb Hct MCH RDW Plt Count Lymph % (Auto) [place] % (Auto) [place] # Seg Neutrophils % Seg Neuts % (Manual) Lymphocytes % (Manual) Seg Neutrophils # Seg Neutrophils # Man Lymphocytes # (Manual) Monocytes # (Manual) PT INR APTT ABG pH 7.470 H ABG pO2 74.0 L ABG HCO3 33.8 H ABG O2 Saturation ABG Base Excess 9.1 H ABG Hemoglobin 8.7 L Oxyhemoglobin 94.7 L Sodium 146 H Potassium 2.9 L* Chloride Carbon Dioxide BUN 25 H Creatinine Glucose 213 H POC Glucose Lactic Acid Calcium Ionized Calcium Phosphorus 1.00 L Magnesium Total Bilirubin AST ALT Alkaline Phosphatase Ammonia Total Creatine Kinase CK-MB (CK-2) CK-MB (CK-2) Rel Index Total Protein Albumin Urine WBC (Auto) Salicylates Acetaminophen Plasma/Serum Alcohol 11/27/19 11/27/19 11/27/19 05:37 12:20 15:46 WBC RBC Hgb Hct MCH RDW Plt Count Lymph % (Auto) [place] % (Auto) [place] # Seg Neutrophils % Seg Neuts % (Manual) Lymphocytes % (Manual) Seg Neutrophils # Seg Neutrophils # Man Lymphocytes # (Manual) Monocytes # (Manual) PT INR APTT ABG pH ABG pO2 ABG HCO3 ABG O2 Saturation ABG Base Excess ABG Hemoglobin Oxyhemoglobin Sodium 146 H Potassium 3.5 L D Chloride Carbon Dioxide BUN 24 H Creatinine 0.6 L Glucose 187 H POC Glucose 117 H 220 H Lactic Acid Calcium Ionized Calcium Phosphorus Magnesium Total Bilirubin AST ALT Alkaline Phosphatase Ammonia Total Creatine Kinase CK-MB (CK-2) CK-MB (CK-2) Rel Index Total Protein Albumin Urine WBC (Auto) Salicylates Acetaminophen Plasma/Serum Alcohol 11/27/19 11/28/19 11/28/19 17:28 05:00 05:02 WBC RBC Hgb Hct MCH RDW Plt Count Lymph % (Auto) [place] % (Auto) [place] # Seg Neutrophils % Seg Neuts % (Manual) Lymphocytes % (Manual) Seg Neutrophils # Seg Neutrophils # Man Lymphocytes # (Manual) Monocytes # (Manual) PT INR APTT ABG pH ABG pO2 72.4 L ABG HCO3 33.6 H ABG O2 Saturation 94.1 L ABG Base Excess 7.3 H ABG Hemoglobin Oxyhemoglobin 91.8 L Sodium 146 H Potassium 3.3 L Chloride Carbon Dioxide BUN 25 H Creatinine 0.6 L Glucose 176 H POC Glucose 198 H Lactic Acid Calcium Ionized Calcium Phosphorus Magnesium Total Bilirubin AST ALT Alkaline Phosphatase Ammonia Total Creatine Kinase CK-MB (CK-2) CK-MB (CK-2) Rel Index Total Protein Albumin Urine WBC (Auto) Salicylates Acetaminophen Plasma/Serum Alcohol 11/28/19 11/28/19 11/29/19 05:02 18:55 10:43 WBC 15.2 H 19.0 H RBC 3.06 L 3.01 L Hgb 8.3 L 8.3 L Hct 27.0 L 26.4 L MCH 27 L RDW 19.0 H 19.7 H Plt Count 479 H 611 H Lymph % (Auto) [place] % (Auto) [place] # Seg Neutrophils % Seg Neuts % (Manual) 92.0 H Lymphocytes % (Manual) 2.0 L Seg Neutrophils # Seg Neutrophils # Man 14.0 H Lymphocytes # (Manual) 0.3 L Monocytes # (Manual) PT INR APTT ABG pH ABG pO2 ABG HCO3 ABG O2 Saturation ABG Base Excess ABG Hemoglobin Oxyhemoglobin Sodium Potassium Chloride Carbon Dioxide BUN Creatinine Glucose POC Glucose 138 H Lactic Acid Calcium Ionized Calcium Phosphorus Magnesium Total Bilirubin AST ALT Alkaline Phosphatase Ammonia Total Creatine Kinase CK-MB (CK-2) CK-MB (CK-2) Rel Index Total Protein Albumin Urine WBC (Auto) Salicylates Acetaminophen Plasma/Serum Alcohol 11/29/19 11/29/19 11/29/19 10:43 12:27 19:25 WBC RBC Hgb Hct MCH RDW Plt Count Lymph % (Auto) [place] % (Auto) [place] # Seg Neutrophils % Seg Neuts % (Manual) Lymphocytes % (Manual) Seg Neutrophils # Seg Neutrophils # Man Lymphocytes # (Manual) Monocytes # (Manual) PT INR APTT ABG pH ABG pO2 ABG HCO3 ABG O2 Saturation ABG Base Excess ABG Hemoglobin Oxyhemoglobin Sodium Potassium 2.8 L* Chloride Carbon Dioxide BUN 20 H Creatinine 0.5 L Glucose 121 H POC Glucose 128 H 120 H Lactic Acid Calcium Ionized Calcium Phosphorus Magnesium Total Bilirubin AST ALT Alkaline Phosphatase Ammonia Total Creatine Kinase CK-MB (CK-2) CK-MB (CK-2) Rel Index Total Protein Albumin Urine WBC (Auto) Salicylates Acetaminophen Plasma/Serum Alcohol 11/29/19 11/30/19 11/30/19 23:46 04:10 05:02 WBC RBC Hgb Hct MCH RDW Plt Count Lymph % (Auto) [place] % (Auto) [place] # Seg Neutrophils % Seg Neuts % (Manual) Lymphocytes % (Manual) Seg Neutrophils # Seg Neutrophils # Man Lymphocytes # (Manual) Monocytes # (Manual) PT INR APTT ABG pH ABG pO2 76.3 L ABG HCO3 32.5 H ABG O2 Saturation ABG Base Excess 6.9 H ABG Hemoglobin 8.0 L Oxyhemoglobin 92.6 L Sodium Potassium Chloride Carbon Dioxide BUN Creatinine Glucose POC Glucose 116 H 128 H Lactic Acid Calcium Ionized Calcium Phosphorus Magnesium Total Bilirubin AST ALT Alkaline Phosphatase Ammonia Total Creatine Kinase CK-MB (CK-2) CK-MB (CK-2) Rel Index Total Protein Albumin Urine WBC (Auto) Salicylates Acetaminophen Plasma/Serum Alcohol 11/30/19 11/30/19 11/30/19 05:25 05:25 12:59 WBC 18.4 H RBC 3.10 L Hgb 8.5 L Hct 27.5 L MCH 27 L RDW 20.9 H Plt Count 691 H Lymph % (Auto) 7.1 L [place] % (Auto) 7.7 H [place] # 1.4 H Seg Neutrophils % 83.4 H Seg Neuts % (Manual) Lymphocytes % (Manual) Seg Neutrophils # 15.4 H Seg Neutrophils # Man Lymphocytes # (Manual) Monocytes # (Manual) PT INR APTT ABG pH ABG pO2 ABG HCO3 ABG O2 Saturation ABG Base Excess ABG Hemoglobin Oxyhemoglobin Sodium 146 H Potassium Chloride 107.2 H Carbon Dioxide BUN Creatinine 0.5 L Glucose 132 H POC Glucose 124 H Lactic Acid Calcium Ionized Calcium Phosphorus Magnesium Total Bilirubin AST 246 H ALT 274 H Alkaline Phosphatase 203 H Ammonia Total Creatine Kinase CK-MB (CK-2) CK-MB (CK-2) Rel Index Total Protein 5.4 L Albumin 2.9 L Urine WBC (Auto) Salicylates Acetaminophen Plasma/Serum Alcohol 11/30/19 12/01/19 12/01/19 17:53 00:05 05:10 WBC RBC Hgb Hct MCH RDW Plt Count Lymph % (Auto) [place] % (Auto) [place] # Seg Neutrophils % Seg Neuts % (Manual) Lymphocytes % (Manual) Seg Neutrophils # Seg Neutrophils # Man Lymphocytes # (Manual) Monocytes # (Manual) PT INR APTT ABG pH ABG pO2 ABG HCO3 ABG O2 Saturation ABG Base Excess ABG Hemoglobin Oxyhemoglobin Sodium Potassium Chloride Carbon Dioxide BUN Creatinine Glucose POC Glucose 113 H 143 H 145 H Lactic Acid Calcium Ionized Calcium Phosphorus Magnesium Total Bilirubin AST ALT Alkaline Phosphatase Ammonia Total Creatine Kinase CK-MB (CK-2) CK-MB (CK-2) Rel Index Total Protein Albumin Urine WBC (Auto) Salicylates Acetaminophen Plasma/Serum Alcohol 12/01/19 12/01/19 12/01/19 05:33 08:23 08:23 WBC 22.7 H RBC 2.88 L Hgb 7.9 L Hct 25.2 L MCH 27 L RDW 21.0 H Plt Count 732 H Lymph % (Auto) [place] % (Auto) [place] # Seg Neutrophils % Seg Neuts % (Manual) 91.0 H Lymphocytes % (Manual) 3.0 L Seg Neutrophils # Seg Neutrophils # Man 20.7 H Lymphocytes # (Manual) 0.7 L Monocytes # (Manual) 1.1 H PT INR APTT ABG pH ABG pO2 68.6 L ABG HCO3 34.1 H ABG O2 Saturation ABG Base Excess 9.0 H ABG Hemoglobin 6.5 L Oxyhemoglobin 94.7 L Sodium Potassium Chloride Carbon Dioxide BUN Creatinine 0.5 L Glucose 125 H POC Glucose Lactic Acid Calcium Ionized Calcium Phosphorus Magnesium Total Bilirubin AST ALT Alkaline Phosphatase Ammonia Total Creatine Kinase CK-MB (CK-2) CK-MB (CK-2) Rel Index Total Protein Albumin Urine WBC (Auto) Salicylates Acetaminophen Plasma/Serum Alcohol 12/01/19 12/01/19 12/01/19 13:21 17:54 20:59 WBC RBC Hgb Hct MCH RDW Plt Count Lymph % (Auto) [place] % (Auto) [place] # Seg Neutrophils % Seg Neuts % (Manual) Lymphocytes % (Manual) Seg Neutrophils # Seg Neutrophils # Man Lymphocytes # (Manual) Monocytes # (Manual) PT INR APTT ABG pH ABG pO2 78.3 L ABG HCO3 33.8 H ABG O2 Saturation 94.9 L ABG Base Excess 7.9 H ABG Hemoglobin 11.5 L Oxyhemoglobin 92.3 L Sodium Potassium Chloride Carbon Dioxide BUN Creatinine Glucose POC Glucose 111 H 115 H Lactic Acid Calcium Ionized Calcium Phosphorus Magnesium Total Bilirubin AST ALT Alkaline Phosphatase Ammonia Total Creatine Kinase CK-MB (CK-2) CK-MB (CK-2) Rel Index Total Protein Albumin Urine WBC (Auto) Salicylates Acetaminophen Plasma/Serum Alcohol 12/02/19 12/03/19 12/04/19 12:55 20:00 04:26 WBC 15.2 H RBC 2.69 L Hgb 7.4 L Hct 23.6 L MCH 27 L RDW 19.9 H Plt Count 838 H Lymph % (Auto) [place] % (Auto) [place] # Seg Neutrophils % Seg Neuts % (Manual) Lymphocytes % (Manual) Seg Neutrophils # Seg Neutrophils # Man Lymphocytes # (Manual) Monocytes # (Manual) PT INR APTT ABG pH ABG pO2 68.3 L ABG HCO3 33.5 H ABG O2 Saturation 93.5 L ABG Base Excess 8.4 H ABG Hemoglobin 7.3 L Oxyhemoglobin 90.9 L Sodium Potassium Chloride Carbon Dioxide BUN Creatinine Glucose POC Glucose 107 H Lactic Acid Calcium Ionized Calcium Phosphorus Magnesium Total Bilirubin AST ALT Alkaline Phosphatase Ammonia Total Creatine Kinase CK-MB (CK-2) CK-MB (CK-2) Rel Index Total Protein Albumin Urine WBC (Auto) Salicylates Acetaminophen Plasma/Serum Alcohol 12/04/19 12/04/19 12/04/19 04:26 07:45 12:02 WBC 15.9 H RBC 2.88 L Hgb 7.9 L Hct 25.1 L MCH RDW 20.4 H Plt Count 839 H Lymph % (Auto) 11.3 L [place] % (Auto) 15.2 H [place] # 2.4 H Seg Neutrophils % 72.4 H Seg Neuts % (Manual) Lymphocytes % (Manual) Seg Neutrophils # 11.5 H Seg Neutrophils # Man Lymphocytes # (Manual) Monocytes # (Manual) PT INR APTT ABG pH ABG pO2 ABG HCO3 ABG O2 Saturation ABG Base Excess ABG Hemoglobin Oxyhemoglobin Sodium Potassium Chloride 96.5 L Carbon Dioxide BUN 21 H Creatinine 0.6 L Glucose 107 H POC Glucose 138 H Lactic Acid Calcium Ionized Calcium Phosphorus Magnesium Total Bilirubin AST ALT Alkaline Phosphatase Ammonia Total Creatine Kinase CK-MB (CK-2) CK-MB (CK-2) Rel Index Total Protein Albumin Urine WBC (Auto) Salicylates Acetaminophen Plasma/Serum Alcohol Chest x-ray: other Allied health notes reviewed: nursing
--- NOTE | 2019-12-04 15:12 | Progress Note ---
Assessment and Plan Cultures: 11/22/2019 urine culture:no significant growth 11/22/2019 tracheal aspirate culture: H. influenzae 11/23/2019 blood culture: No growth A/P: 54-year-old female with hypertension, depression, tobacco use, alcohol abuse was brought into the emergency room on 11/22/2019 after she went into respiratory arrest at home requiring CPR by EMS: #Sepsis: Source could be UTI versus pneumonitis versus SBP. UA showed pyuria. RUQ US showed no ascites. Completed 7 days of Ceftriaxone on 11/29/2019. #Pneumonitis, acute respiratory failure: Possibly aspiration. No pneumonia seen. On mechanical ventilation. #Elevated LFTs, alcohol abuse, status post arrest requiring CPR: Trend LFTs. RUQ US showed no ascites. #Acute encephalopathy: Likely multifactorial from alcohol abuse, status post arrest, electrolyte abnormalities. #Diarrhea: likely combination of tube feeds and lactulose. Recs: continue off abx trend CBC and LFTs overall guarded prognosis Freddy Plata MD [facility] M: [phone] O: [phone] F: [phone] Subjective Date of service: 12/04/19 Principal diagnosis: Ac cardiopulmonary arrest; Ac hypoxemic resp failure; Acute encephalopathy Interval history: Afebrile with a T-max of 100.2 degrees, white count decreased to 15. Objective - Exam Narrative Exam: Constitutional: comatose, intubated Head, Ears, Nose: Normocephalic, atraumatic. Eyes: Conjunctivae/corneas clear. Neck: intubated Oral: intubated Cardiovascular: S1, S2 normal Respiratory: Good air entry, clear to auscultation bilaterally GI: slightly distended, bowel sounds present. Rectal tube present with liquid stool Musculoskeletal: No pedal edema, no cyanosis. Skin: No rash or abscess Hem/Lymphatic: No palpable cervical or supraclavicular nodes. No lymphangitis Psych: no agitation. Neurological: comatose, intubated, on vent - Constitutional Vitals: Vital Signs Temp Pulse Resp BP Pulse Ox 99.8 F H 110 H 12 105/70 100 12/04/19 12:00 12/04/19 13:00 12/04/19 13:00 12/04/19 13:00 12/04/19 13:00 Temperature -Last 24 Hours Temperature 99.8 F Temperature 100.2 F Temperature 100.2 F Temperature 99.4 F Temperature 98.8 F Temperature 98.4 F Temperature 97.5 F - Labs CBC & Chem 7: 12/04/19 07:45 12/04/19 04:26 Labs: Abnormal lab results 12/03/19 12/04/19 12/04/19 Range/Units 20:00 04:26 04:26 WBC 15.2 H (4.5-11.0) K/mm3 RBC 2.69 L (3.65-5.03) M/mm3 Hgb 7.4 L (10.1-14.3) gm/dl Hct 23.6 L (30.3-42.9) % MCH 27 L (28-32) pg RDW 19.9 H (13.2-15.2) % Plt Count 838 H (140-440) K/mm3 Lymph % (Auto) (13.4-35.0) % [place] % (Auto) (0.0-7.3) % [place] # (0.0-0.8) K/mm3 Seg Neutrophils % (40.0-70.0) % Seg Neutrophils # (1.8-7.7) K/mm3 ABG pO2 68.3 L (80.0-90.0) mm Hg ABG HCO3 33.5 H (20.0-26.0) mmol/L ABG O2 Saturation 93.5 L (95.0-99.0) % ABG Base Excess 8.4 H (-2.0-3.0) mmol/L ABG Hemoglobin 7.3 L (12.0-16.0) gm/dl Oxyhemoglobin 90.9 L (95.0-99.0) % Chloride 96.5 L (98-107) mmol/L BUN 21 H (7-17) mg/dL Creatinine 0.6 L (0.7-1.2) mg/dL Glucose 107 H (65-100) mg/dL POC Glucose (70-105) 12/04/19 12/04/19 Range/Units 07:45 12:02 WBC 15.9 H (4.5-11.0) K/mm3 RBC 2.88 L (3.65-5.03) M/mm3 Hgb 7.9 L (10.1-14.3) gm/dl Hct 25.1 L (30.3-42.9) % MCH (28-32) pg RDW 20.4 H (13.2-15.2) % Plt Count 839 H (140-440) K/mm3 Lymph % (Auto) 11.3 L (13.4-35.0) % [place] % (Auto) 15.2 H (0.0-7.3) % [place] # 2.4 H (0.0-0.8) K/mm3 Seg Neutrophils % 72.4 H (40.0-70.0) % Seg Neutrophils # 11.5 H (1.8-7.7) K/mm3 ABG pO2 (80.0-90.0) mm Hg ABG HCO3 (20.0-26.0) mmol/L ABG O2 Saturation (95.0-99.0) % ABG Base Excess (-2.0-3.0) mmol/L ABG Hemoglobin (12.0-16.0) gm/dl Oxyhemoglobin (95.0-99.0) % Chloride (98-107) mmol/L BUN (7-17) mg/dL Creatinine (0.7-1.2) mg/dL Glucose (65-100) mg/dL POC Glucose 138 H (70-105)
[2019-12-04] MEDS: fentaNYL 25 MCG/HR PATCH 72HR TD SCH (16:46)
--- NOTE | 2019-12-04 18:13 | Progress Note ---
Assessment and Plan Assessment and plan: 54-year-old female with a past medical history of Hypertension, Depression, Tobacco use Disorder, Alcohol use Disorder as confirmed by Daughter and pt's mother presents to the hospital status post cardiac arrest. Patient is from home and family called EMS at 22: 27 for the pt who had told family members that she was not feeling good and c/o her chronic hip pain. She urinated and then was speaking, then she " froze and was rigid " per daughter and she became unresponsive and stopped breathing. Immediately, family began CPR. EMS found pt in PEA. Upon their arrival patient in SinuS Tachycardia.. They were unable to intubate patient with a ET tube because she was clenching down therefore Joe airway placed. Patient received Narcan and Epinephrine. Patient's rhythm changed to PEA to sinus bradycardia, to PEA, then to sinus tach after receiving Narcan and Epinephrine. Per the ED physician who evaluated pt, Patient presented with a pulse, intermittent respirations, and bagging support via Joe airway with O2 sat of 100%. Accu-Chek of [address] Rodriguez spoke to patient's family (daughter and mother). MOther is Anh Jesus- [phone] and she would like to be called about pt's progress or notified about the pt.. No seizure activity was noted. They deny that patient had any preceding infection symptoms, cough, fever, complaints of chest pain, shortness of breath, or any bleeding diathesis, melena, hematochezia, hematuria, hematemesis, or abdominal pain. Patient is a known alcoholic and continues to drink per daughter. No history could be obtained from the pt due to her mechanical ventilation. No previous hx of DVT/PE per mother and daughter. - Patient Problems Seizure disorder Current Visit: Yes Status: Acute Plan to address problem: No focal seizure disorder continue Keppra. Anoxic brain injury; reviewed by neurologist EEG showed generalized slowing no seizure or epileptiform activity was noted CT of the head showed no acute abnormality. Neurologist and director of transportation but document discussion with family discussing about less likelihood of meaningful recovery. Also need for trach and PEG if continued active management. Alcohol abuse Current Visit: Yes Status: Acute Plan to address problem: History of alcohol abuse. Patient does not have delirium tremors. Required restraints. Acute metabolic/toxic encephalopathy: Seroquel added due to intermittent agitation begin Precedex once current fentanyl bag is done- place 25 mics/hr fentanyl patch librium increased 50mg q8hr cardiac arrest with successful resuscitation Current Visit: Yes Status: Acute Plan to address problem: Status post cardiorespiratory arrest. 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 . Patient had intact corneal and cough reflex and withdrew lower extremities from pain. Unlikely however any meaningful recovery after extubation. Still appears to have anoxia still has severe anoxic encephalopathy. No new changes. Elevated LFTs Current Visit: Yes Status: Acute Plan to address problem: LFTs not obtained on her last blood work. Obtain LFTs for Tuesday. Likely would not make and change any outcome with patient's prognosis. UTI (urinary tract infection) Current Visit: Yes Status: Acute Plan to address problem: Continue antibiotics Rocephin completed yesterday.. No growth. Antibiotics discontinued. Medically stable. No evidence of fever. HTN (hypertension) Current Visit: No Status: Acute Plan to address problem: Patient continues to have optimal control blood pressure. Metabolic acidosis/alcoholic acidosis/Lactic acidosis Sepsis: Per ID doctor at this point will keep off antibiotics. Sources could be UTI versus pneumonitis versus SBP. UA shows pyuria right upper quadrant ultrasound did not reveal any ascites patient had completed 7 days of ceftriaxone on 11/29/2019. Ischemic hepatitis Current Visit: Yes Status: Acute Restraints Poor prognosis The high probability of a clinically significant, sudden or life threatening deterioration of the [pulomnary, neurology] system(s) required my full and direct attention, intervention and personal management. The aggregate critical care time was [35] minutes. This time is in addition to time spent performing reported procedures but includes the following: [v] Data Review and interpretation cv Patient assessment and monitoring of vital signs [v]c Documentation [v] Medication orders and management History Interval history: Patient seen and examined, remains unresponsive and on full respiratory support, Intermittent agitation. Hospitalist Physical - Physical exam Narrative exam: General appearance: Present: no acute distress, other (on vent with sedation, elderly female), not responsive - EENT ENT: no oropharyngeal erythema, no poor dentition, no thrush - Neck Neck: Present: supple - Respiratory Respiratory effort: normal Respiratory: bilateral: diminished (On ventilator.) - Cardiovascular Rhythm: regular Heart Sounds: Absent: systolic murmur, diastolic murmur - Extremities Extremities: no ischemia, pulses intact, pulses symmetrical, normal temperature, normal color Extremity abnormal: edema Peripheral Pulses: within normal limits - Abdominal General gastrointestinal: deferred, non-tender, non-distended, hypoactive bowel sounds - Integumentary Integumentary: Present: clear, warm, dry Neuro: Unresponsive, tongue protruding. - Constitutional Vitals: Temp Pulse Resp BP Pulse Ox 98.7 F 107 H 12 109/75 100 12/04/19 16:00 12/04/19 17:00 12/04/19 17:00 12/04/19 17:00 12/04/19 17:00 General appearance: Present: no acute distress, other (on vent with sedation, elderly female) Results - Labs CBC & Chem 7: 12/04/19 07:45 12/04/19 04:26 Labs: Laboratory Last Values WBC 15.9 K/mm3 (4.5-11.0) H 12/04/19 07:45 RBC 2.88 M/mm3 (3.65-5.03) L 12/04/19 07:45 Hgb 7.9 gm/dl (10.1-14.3) L 12/04/19 07:45 Hct 25.1 % (30.3-42.9) L 12/04/19 07:45 MCV 87 fl (79-97) 12/04/19 07:45 MCH 28 pg (28-32) 12/04/19 07:45 MCHC 32 % (30-34) 12/04/19 07:45 RDW 20.4 % (13.2-15.2) H 12/04/19 07:45 Plt Count 839 K/mm3 (140-440) H 12/04/19 07:45 Lymph % (Auto) 11.3 % (13.4-35.0) L 12/04/19 07:45 [place] % (Auto) 15.2 % (0.0-7.3) H 12/04/19 07:45 Eos % (Auto) 0.5 % (0.0-4.3) 12/04/19 07:45 Baso % (Auto) 0.6 % (0.0-1.8) 12/04/19 07:45 Lymph # 1.8 K/mm3 (1.2-5.4) 12/04/19 07:45 [place] # 2.4 K/mm3 (0.0-0.8) H 12/04/19 07:45 Eos # 0.1 K/mm3 (0.0-0.4) 12/04/19 07:45 Baso # 0.1 K/mm3 (0.0-0.1) 12/04/19 07:45 Add Manual Diff Complete 12/04/19 07:45 Total Counted 100 12/01/19 08:23 Seg Neutrophils % 72.4 % (40.0-70.0) H 12/04/19 07:45 Seg Neuts % (Manual) 91.0 % (40.0-70.0) H 12/01/19 08:23 Band Neutrophils % 0 % 12/01/19 08:23 Lymphocytes % (Manual) 3.0 % (13.4-35.0) L 12/01/19 08:23 Reactive Lymphs % (Man) 1.0 % 12/01/19 08:23 Monocytes % (Manual) 5.0 % (0.0-7.3) 12/01/19 08:23 Eosinophils % (Manual) 0 % (0.0-4.3) 12/01/19 08:23 Basophils % (Manual) 0 % (0.0-1.8) 12/01/19 08:23 Metamyelocytes % 0 % 12/01/19 08:23 Myelocytes % 0 % 12/01/19 08:23 Promyelocytes % 0 % 12/01/19 08:23 Blast Cells % 0 % 12/01/19 08:23 Nucleated RBC % Not Reportable 12/01/19 08:23 Seg Neutrophils # 11.5 K/mm3 (1.8-7.7) H 12/04/19 07:45 Seg Neutrophils # Man 20.7 K/mm3 (1.8-7.7) H 12/01/19 08:23 Band Neutrophils # 0.0 K/mm3 12/01/19 08:23 Lymphocytes # (Manual) 0.7 K/mm3 (1.2-5.4) L 12/01/19 08:23 Abs React Lymphs (Man) 0.2 K/mm3 12/01/19 08:23 Monocytes # (Manual) 1.1 K/mm3 (0.0-0.8) H 12/01/19 08:23 Eosinophils # (Manual) 0.0 K/mm3 (0.0-0.4) 12/01/19 08:23 Basophils # (Manual) 0.0 K/mm3 (0.0-0.1) 12/01/19 08:23 Metamyelocytes # 0.0 K/mm3 12/01/19 08:23 Myelocytes # 0.0 K/mm3 12/01/19 08:23 Promyelocytes # 0.0 K/mm3 12/01/19 08:23 Blast Cells # 0.0 K/mm3 12/01/19 08:23 WBC Morphology Not Reportable 12/01/19 08:23 Hypersegmented Neuts Not Reportable 12/01/19 08:23 Hyposegmented Neuts Not Reportable 12/01/19 08:23 Hypogranular Neuts Not Reportable 12/01/19 08:23 Smudge Cells Not Reportable 12/01/19 08:23 Toxic Granulation Not Reportable 12/01/19 08:23 Toxic Vacuolation Not Reportable 12/01/19 08:23 Dohle Bodies Not Reportable 12/01/19 08:23 Pelger-Huet Anomaly Not Reportable 12/01/19 08:23 Dominique Rods Not Reportable 12/01/19 08:23 Platelet Estimate Consistent w auto 12/01/19 08:23 Clumped Platelets Not Reportable 12/01/19 08:23 Plt Clumps, EDTA Not Reportable 12/01/19 08:23 Large Platelets Not Reportable 12/01/19 08:23 Giant Platelets Few 12/01/19 08:23 Platelet Satelliting Not Reportable 12/01/19 08:23 Plt Morphology Comment Not Reportable 12/01/19 08:23 RBC Morphology Not Reportable 12/01/19 08:23 Dimorphic RBCs Not Reportable 12/01/19 08:23 Polychromasia Few 12/01/19 08:23 Hypochromasia Few 12/01/19 08:23 Poikilocytosis Not Reportable 12/01/19 08:23 Anisocytosis Not Reportable 12/01/19 08:23 Microcytosis Not Reportable 12/01/19 08:23 Macrocytosis Not Reportable 12/01/19 08:23 Spherocytes Not Reportable 12/01/19 08:23 Pappenheimer Bodies Not Reportable 12/01/19 08:23 Sickle Cells Not Reportable 12/01/19 08:23 Target Cells 1+ 12/01/19 08:23 Tear Drop Cells Not Reportable 12/01/19 08:23 Ovalocytes Not Reportable 12/01/19 08:23 Helmet Cells Not Reportable 12/01/19 08:23 [place] Bodies Not Reportable 12/01/19 08:23 [place] Rings Not Reportable 12/01/19 08:23 [place] Cells Not Reportable 12/01/19 08:23 Bite Cells Not Reportable 12/01/19 08:23 Crenated Cell Not Reportable 12/01/19 08:23 Elliptocytes Not Reportable 12/01/19 08:23 Acanthocytes (Spur) Not Reportable 12/01/19 08:23 Rouleaux Not Reportable 12/01/19 08:23 Hemoglobin C Crystals Not Reportable 12/01/19 08:23 Schistocytes Not Reportable 12/01/19 08:23 Malaria parasites Not Reportable 12/01/19 08:23 [place] Bodies Not Reportable 12/01/19 08:23 Hem Pathologist Commnt No 12/01/19 08:23 PT 17.0 Sec. (12.2-14.9) H 11/23/19 03:47 INR 1.36 (0.87-1.13) H 11/23/19 03:47 APTT 128.2 Sec. (24.2-36.6) H* 11/23/19 03:47 Heparin Anti-Xa Level 0.31 U.I./ml (0.3-0.7) 11/23/19 09:03 ABG pH 7.437 pH Units (7.350-7.450) 12/03/19 20:00 ABG pCO2 50.7 mm Hg 12/03/19 20:00 ABG pO2 68.3 mm Hg (80.0-90.0) L 12/03/19 20:00 ABG HCO3 33.5 mmol/L (20.0-26.0) H 12/03/19 20:00 ABG O2 Saturation 93.5 % (95.0-99.0) L 12/03/19 20:00 ABG O2 Content 9.5 (0.0-44) 12/03/19 20:00 ABG Base Excess 8.4 mmol/L (-2.0-3.0) H 12/03/19 20:00 ABG Hemoglobin 7.3 gm/dl (12.0-16.0) L 12/03/19 20:00 ABG Carboxyhemoglobin 2.3 % (0.0-5.0) 12/03/19 20:00 ABG Methemoglobin 0.4 % (0.0-1.5) 12/03/19 20:00 Oxyhemoglobin 90.9 % (95.0-99.0) L 12/03/19 20:00 FiO2 30 % 12/03/19 20:00 Sodium 140 mmol/L (137-145) 12/04/19 04:26 Potassium 4.9 mmol/L (3.6-5.0) 12/04/19 04:26 Chloride 96.5 mmol/L (98-107) L 12/04/19 04:26 Carbon Dioxide 28 mmol/L (22-30) 12/04/19 04:26 Anion Gap 20 mmol/L 12/04/19 04:26 BUN 21 mg/dL (7-17) H 12/04/19 04:26 Creatinine 0.6 mg/dL (0.7-1.2) L 12/04/19 04:26 Estimated GFR > 60 ml/min 12/04/19 04:26 BUN/Creatinine Ratio 35 % 12/04/19 04:26 Glucose 107 mg/dL (65-100) H 12/04/19 04:26 POC Glucose 138 (70-105) H 12/04/19 12:02 Lactic Acid 1.80 mmol/L (0.7-2.0) 11/25/19 05:05 Calcium 9.5 mg/dL (8.4-10.2) 12/04/19 04:26 Ionized Calcium 4.5 mg/dL (4.8-5.6) L 11/23/19 06:32 Phosphorus 4.20 mg/dL (2.5-4.5) D 11/28/19 08:59 Magnesium 2.30 mg/dL (1.7-2.3) 11/29/19 13:41 Total Bilirubin 0.30 mg/dL (0.1-1.2) 11/30/19 05:25 AST 246 units/L (5-40) H 11/30/19 05:25 ALT 274 units/L (7-56) H 11/30/19 05:25 Alkaline Phosphatase 203 units/L (35-129) H 11/30/19 05:25 Ammonia 42.0 umol/L (25-60) 11/29/19 13:41 Total Creatine Kinase 139 units/L (30-135) H 11/22/19 23:27 CK-MB (CK-2) 8.3 ng/mL (0.0-4.0) H 11/22/19 23:27 CK-MB (CK-2) Rel Index 5.9 (0-4) H 11/22/19 23:27 Troponin T < 0.010 ng/mL (0.00-0.029) 11/22/19 23:27 Total Protein 5.4 g/dL (6.3-8.2) L 11/30/19 05:25 Albumin 2.9 g/dL (3.9-5) L 11/30/19 05:25 Albumin/Globulin Ratio 1.2 % 11/30/19 05:25 Lipase 18 units/L (13-60) 11/23/19 00:34 Procalcitonin 1.09 ng/mL (<0.15) 11/23/19 04:53 Urine Color Yellow (Yellow) 11/22/19 23:17 Urine Turbidity Cloudy (Clear) 11/22/19 23:17 Urine pH 6.0 (5.0-7.0) 11/22/19 23:17 Ur Specific [place] 1.010 (1.003-1.030) 11/22/19 23:17 Urine Protein >500 mg/dL (Negative) 11/22/19 23:17 Urine Glucose (UA) >=500 mg/dL (Negative) 11/22/19 23:17 Urine Ketones 20 mg/dL (Negative) 11/22/19 23:17 Urine Blood Mod (Negative) 11/22/19 23:17 Urine Nitrite Neg (Negative) 11/22/19 23:17 Urine Bilirubin Neg (Negative) 11/22/19 23:17 Urine Urobilinogen 4.0 mg/dL (<2.0) 11/22/19 23:17 Ur Leukocyte Esterase Neg (Negative) 11/22/19 23:17 Urine WBC (Auto) 40.0 /HPF (0.0-6.0) H 11/22/19 23:17 Urine RBC (Auto) 10.0 /HPF (0.0-6.0) 11/22/19 23:17 U Epithel Cells (Auto) 1.0 /HPF (0-13.0) 11/22/19 23:17 Urine Bacteria (Auto) 2+ /HPF (Negative) 11/22/19 23:17 Urine Mucus Few /HPF 11/22/19 23:17 Salicylates < 0.3 mg/dL (2.8-20.0) L 11/22/19 23:27 Urine Opiates Screen Presumptive negative 11/22/19 23:17 Urine Methadone Screen Presumptive negative 11/22/19 23:17 Acetaminophen < 5.0 ug/mL (10.0-30.0) L 11/22/19 23:27 Ur Barbiturates Screen Presumptive negative 11/22/19 23:17 Ur Phencyclidine Scrn Presumptive negative 11/22/19 23:17 Ur Amphetamines Screen Presumptive negative 11/22/19 23:17 U Benzodiazepines Scrn Presumptive negative 11/22/19 23:17 Urine Cocaine Screen Presumptive negative 11/22/19 23:17 U Marijuana (THC) Screen Presumptive negative 11/22/19 23:17 Drugs of Abuse Note Disclamer 11/22/19 23:17 Plasma/Serum Alcohol 0.08 % (0-0.07) H 11/22/19 23:27 Hepatitis A IgM Ab Non-reactive (NonReactive) 11/23/19 01:19 Hep Bs Antigen Non-reactive (Negative) 11/23/19 01:19 Hep B Core IgM Ab Non-reactive (NonReactive) 11/23/19 01:19 Hepatitis C Antibody Non-reactive (NonReactive) 11/23/19 01:19 - Diagnostic Impressions Diagnostic Impressions: Echocardiogram 11/23/19 03:58 Transthoracic Echocardiogram Indication: Cardiac arrest BP: 131/89 HR: 115 Conclusions *The study quality is technically difficult. *Global left ventricular wall motion and contractility are within normal limits. *The estimated ejection fraction is 55-60%. *Abnormal left ventricular diastolic filling is observed, consistent with impaired relaxation. *There is no pericardial effusion. Findings Procedure Info: The study quality is technically difficult. The study was technically limited due to the patient's inability to lay in the left lateral decubitus position. Left Ventricle: The left ventricular chamber size is normal. There is no left ventricular hypertrophy. Global left ventricular wall motion and contractility are within normal limits. Global left ventricular systolic function is normal. The estimated ejection fraction is 55-60%. Abnormal left ventricular diastolic filling is observed, consistent with impaired relaxation. Left Atrium: The left atrial chamber size is normal. Aortic Valve: The aortic valve leaflets are mildly thickened. Mitral Valve: The mitral valve leaflets are mildly thickened. There is no evidence of mitral regurgitation. Tricuspid Valve: The tricuspid valve leaflets are normal. There is trace tricuspid regurgitation. The right ventricular systolic pressure is calculated at 33 mmHg. Pulmonic Valve: The pulmonic valve appears normal. Pericardium: The pericardium appears normal. There is no pericardial effusion. Aorta: The aorta appears normal. Venous: The inferior vena cava appears normal in size. Measurements Chambers 2D Name Value Normal Range IVSd (2D) 0.94 cm (0.6 - 1.1) LVPWd (2D) 0.81 cm (0.6 - 1.1) LVIDd (2D) 3.6 cm (3.7 - 5.6) LVIDs (2D) 2.27 cm (2 - 3.8) LV FS (2D) 36.93 % - EF Teichholz (2D) 67.76 % - Ao root diameter (2D) 3.03 cm (2 - 3.7) Volumes/Mass Name Value Normal Range LA ESV SP 4CH (A/L) 16.89 ml - LA ESV SP 4CH (MOD) 15.52 ml - Diastolic/Systolic Function Name Value Normal Range MV E-wave Vmax 0.55 m/sec - MV deceleration time 200.89 msec - MV A-wave Vmax 0.68 m/sec - MV E:A ratio 0.82 ratio - Aortic Valve Name Value Normal Range AV Vmax 1.1 m/sec - AV VTI 15.9 cm - AV peak gradient 4.86 mmHg - AV mean gradient 2.59 mmHg - LVOT diameter 2 cm - LVOT Vmax 1.03 m/sec - LVOT VTI 15.87 cm - LVOT peak gradient 4.24 mmHg - LVOT mean gradient 2.41 mmHg - SV LVOT 49.77 ml - JOSÉ MIGUEL (continuity Vmax) 2.93 cm2 - JOSÉ MIGUEL (continuity VTI) 3.13 cm2 - Tricuspid Valve Name Value Normal Range TR Vmax 2.74 m/sec - TR peak gradient 303 mmHg - RAP 3 mmHg - RVSP 33 mmHg - IVC diameter 1.77 cm (1.2 - 2.3) Pulmonic Valve/Qp:Qs Name Value Normal Range PV Vmax 0.77 m/sec - PV peak gradient 2.4 mmHg - PV acceleration time 114.18 msec - [place]/IV: Voiding Method External Female Catheter IV Catheter Type [Right Wrist] Peripheral IV IV Catheter Type [Left Wrist] Peripheral IV IV Catheter Type [Left Peripheral IV Antecubital] IV Catheter Type [Right INT / Saline Lock Forearm] IV Catheter Type [Left Hand] Peripheral IV Active Medications - Current Medications Current Medications: Generic Name Dose Route Start Last Admin Trade Name Freq PRN Reason Stop Dose Admin Lipase/Protease/Amylase 1 each 11/23/19 11:[address] 10,500 Unit FEEDTUBE PRN PRN For Clogged Feeding Tube Chlordiazepoxide HCl 50 mg 12/04/19 14:00 12/04/19 14:07 Librium PO 50 mg Q8H LUCHO Administration Fentanyl 50 mcg 11/28/19 15:26 Sublimaze IV Q10MIN PRN ANALGESIA Fentanyl 25 mcg 12/04/19 17:00 12/04/19 16:46 Duragesic TD 25 mcg Q3D LUCHO Administration Heparin Sodium (Porcine) 5,000 unit 11/23/19 22:00 12/04/19 09:36 Heparin SUB-Q 5,000 unit Q12HR LUCHO Administration Hydralazine HCl 10 mg 11/24/19 00:45 11/28/19 08:56 Apresoline IV 10 mg Q6H PRN Administration SBP > 160 Hydrophilic Ointment 1 applic 11/22/19 23:23 Vaseline Lip Therapy TP Q2HR PRN Dry Lips Dexmedetomidine HCl 400 mcg/ 104 mls @ 2.85 mls/hr 12/04/19 14:00 12/04/19 16:42 Sodium Chloride IV 0.2 mcg/kg/hr TITRATE LUCHO 2.85 mls/hr Administration Protocol 0.2 MCG/KG/HR Lansoprazole 30 mg 11/27/19 10:00 12/04/19 09:36 Prevacid Solutab FEEDTUBE 30 mg QDAY LUCHO Administration Levetiracetam 500 mg 11/29/19 10:00 12/04/19 09:36 Keppra PO 500 mg BID LUCHO Administration Lorazepam 2 mg 11/26/19 11:09 12/02/19 06:50 Ativan IV 2 mg Q4H PRN Administration Agitation Multi-Ingred Cream/Lotion/Oil/Oint 1 applic 11/22/19 23:23 Artificial Tears Ophth Oint OU Q4HR PRN Dry Eye(s) Quetiapine Fumarate 300 mg 11/30/19 22:00 12/04/19 09:36 Seroquel PO 300 mg BID LUCHO Administration Simple Syrup 15 ml 11/23/19 11:50 Simple Syrup FEEDTUBE PRN PRN Hypoglycemia Simple Syrup 30 ml 11/23/19 11:50 Simple Syrup FEEDTUBE PRN PRN Hypoglycemia Sodium Bicarbonate 325 mg 11/23/19 11:50 Sodium Bicarbonate FEEDTUBE PRN PRN For Clogged Feeding Tube Nutrition/Malnutrition Assess - Dietary Evaluation Nutrition/Malnutrition Findings: Nutrition Notes Start: 11/23/19 11:29 Freq: Status: Active Protocol: Document 11/28/19 10:27 LM (Rec: 11/28/19 10:35 LM [facility][id number]) Nutrition Notes Initial or Follow up Reassessment Current Diagnosis Hypertension Other Pertinent Diagnosis Cardaic arrest, ETOH dependence, UTI Current Diet Vital AF 1.2 at 50 ml/hr Labs/Tests Na 146 K 3.3 BUN 25 Cr 0.6 Pertinent Medications Reviewed Height 5 ft 6 in Weight 54.8 kg [place] Body Weight (kg) 59.09 BMI 19.5 Subjective/Other Information TF restarted. Pt tolerating TF at 50 ml/hr. Percent of energy/protein needs met: 100%/100% Burn Absent Trauma Absent GI Symptoms None Current % PO Negligible Minimum of two criteria No Muscle Mass Mild Depletion (non-severe) #1 Nutrition Diagnosis Inadequate oral intake Diagnosis Progress(for reassessment Continues documentation) Is patient on ventilator? Yes Is Patient Ambulatory and/or Out of Bed No REE-([facility]-confined to bed) 1402.224 Calculation Used for Recommendations Carmelo Malik Additional Notes Protein: 66-110g (1.2-2g/kg) Fluid: 1 ml/kcal Nutrition Intervention Change Diet Order: TF Nutrition Support: Vital AF 1.2 at 50 ml/hr Flush 200 ml q4h for hypernatremia Flush 80 ml q4h once hypernatremia resolves Kcal 1,440 Protein (gm) 90 Fluid (mL) 973 Goal #1 TF tolerance Goal #2 Meet at least 80% of energy and protein needs via TF Anticipated Discharge Needs: unable to determine at this time Follow-Up By: 12/05/19 Additional Comments F/U for TF tolerance
--- NOTE | 2019-12-04 20:29 | XRay Report ---
CHEST 1 VIEW INDICATION / CLINICAL INFORMATION: Pneumonia. COMPARISON: 11/29/2019 FINDINGS: SUPPORT DEVICES: Endotracheal tube remains in place as well as NG tube. HEART / MEDIASTINUM: No significant abnormality. LUNGS / PLEURA: Only few increased markings are seen with no focal alveolar consolidation, edema or e ffusion. No pneumothorax. ADDITIONAL FINDINGS: No significant additional findings. IMPRESSION: 1. No significant change Signer Name: Yoni Desai MD Signed: 12/04/2019 8:25 PM Workstation Name: [id number]
[2019-12-04] MEDS: LORazepam 2 MG/ML VIAL IV PRN (21:00)
[2019-12-05] MEDS: LORazepam 2 MG/ML VIAL IV PRN (01:09)
[2019-12-05] MEDS ORDERED: fentaNYL 100 MCG/2 ML INJ IV PRN (02:10)
[2019-12-05] MEDS: fentaNYL DRIP Premix 2,000 MCG/100 ML BAG IV SCH ×2 (02:26→10:20)
[2019-12-05] MEDS: chlordiazePOXIDE 25 MG CAP PO SCH ×3 (06:05→21:42)
[2019-12-05] MEDS: HEPARIN 5,000 UNIT/1 ML VIAL SUB-Q SCH ×2 (10:05→21:39)
[2019-12-05] MEDS: levETIRAcetam 500 MG/5 ML ORAL LIQD PO SCH ×2 (10:06→21:39)
[2019-12-05] MEDS: LANSOPRAZOLE 30 MG SOLUTAB FEEDTUBE SCH (10:06)
[2019-12-05] MEDS: QUEtiapine 100 MG TAB PO SCH ×2 (10:06→21:38)
--- NOTE | 2019-12-05 10:35 | Progress Note ---
Assessment and Plan Assessment and plan: 54-year-old female with a past medical history of Hypertension, Depression, Tobacco use Disorder, Alcohol use Disorder as confirmed by Daughter and pt's mother presents to the hospital status post cardiac arrest. Patient is from home and family called EMS at 22: 27 for the pt who had told family members that she was not feeling good and c/o her chronic hip pain. She urinated and then was speaking, then she " froze and was rigid " per daughter and she became unresponsive and stopped breathing. Immediately, family began CPR. EMS found pt in PEA. Upon their arrival patient in SinuS Tachycardia.. They were unable to intubate patient with a ET tube because she was clenching down therefore Joe airway placed. Patient received Narcan and Epinephrine. Patient's rhythm changed to PEA to sinus bradycardia, to PEA, then to sinus tach after receiving Narcan and Epinephrine. Per the ED physician who evaluated pt, Patient presented with a pulse, intermittent respirations, and bagging support via Joe airway with O2 sat of 100%. Accu-Chek of [address] Rodriguez spoke to patient's family (daughter and mother). MOther is Anh Jesus- [phone] and she would like to be called about pt's progress or notified about the pt.. No seizure activity was noted. They deny that patient had any preceding infection symptoms, cough, fever, complaints of chest pain, shortness of breath, or any bleeding diathesis, melena, hematochezia, hematuria, hematemesis, or abdominal pain. Patient is a known alcoholic and continues to drink per daughter. No history could be obtained from the pt due to her mechanical ventilation. No previous hx of DVT/PE per mother and daughter. 12/04: Patient failed CPAP trial became apneic according to documentation. Acute respiratory failure with hypoxia Seizure disorder Presumed anoxic brain injury Alcohol abuse Acute metabolic encephalopathy/toxic encephalopathy Hypertension Status post cardiac arrest Transaminitis Acute cystitis Metabolic acidosis/alcoholic acidosis/lactic acidosis Sepsis Ischemic hepatitis Plan Continue Keppra at this time. I have reached back out to neurology for reevaluation. If aggressive treatment is still sought after despite discussion with neurologist will proceed with PEG and trach. Will discuss with pulmonary this morning considering patient's apneic status following CPAP trial. Patient was on restraints as she gets agitated when off sedation. Precedex was added yesterday. And Librium was increased to 50 mg every 8 hours. Patient had intact corneal and cough reflex and withdrew to pain lower extremity initially although out of hospital cardiac arrest was noted. It is less likely that this patient will have any meaningful recovery following extubation. Continue to monitor LFTs She is on antibiotics and this completed a few days 11/29/2019 ago no growth was noted on cultures no fever. We will continue off antibiotics at this time. Restraints Poor prognosis The high probability of a clinically significant, sudden or life threatening deterioration of the [pulmonary, neurology] system(s) required my full and direct attention, intervention and personal management. The aggregate critical care time was [35] minutes. This time is in addition to time spent performing reported procedures but includes the following: [v] Data Review and interpretation (v) Patient assessment and monitoring of vital signs [v]c Documentation [v] Medication orders and management History Interval history: Patient seen and examined, remains unresponsive and on full respiratory support, Pt not withdrawing to pain. Hospitalist Physical - Physical exam Narrative exam: General appearance: Present: no acute distress, other (on vent with sedation, elderly female), not responsive - EENT ENT: no oropharyngeal erythema, no poor dentition, no thrush - Neck Neck: Present: supple - Respiratory Respiratory effort: normal Respiratory: bilateral: diminished (On ventilator.) - Cardiovascular Rhythm: regular Heart Sounds: Absent: systolic murmur, diastolic murmur - Extremities Extremities: no ischemia, pulses intact, pulses symmetrical, normal temperature, normal color Extremity abnormal: edema Peripheral Pulses: within normal limits - Abdominal General gastrointestinal: deferred, non-tender, non-distended, hypoactive bowel sounds - Integumentary Integumentary: Present: clear, warm, dry Neuro: Unresponsive, tongue protruding. - Constitutional Vitals: Temp Pulse Resp BP Pulse Ox 99.0 F 103 H 12 127/88 100 12/05/19 08:00 12/05/19 08:30 12/05/19 08:30 12/05/19 08:30 12/05/19 08:30 General appearance: Present: no acute distress, other (on vent with sedation, elderly female) Results - Labs CBC & Chem 7: 12/04/19 07:45 12/04/19 04:26 Labs: Laboratory Last Values WBC 15.9 K/mm3 (4.5-11.0) H 12/04/19 07:45 RBC 2.88 M/mm3 (3.65-5.03) L 12/04/19 07:45 Hgb 7.9 gm/dl (10.1-14.3) L 12/04/19 07:45 Hct 25.1 % (30.3-42.9) L 12/04/19 07:45 MCV 87 fl (79-97) 12/04/19 07:45 MCH 28 pg (28-32) 12/04/19 07:45 MCHC 32 % (30-34) 12/04/19 07:45 RDW 20.4 % (13.2-15.2) H 12/04/19 07:45 Plt Count 839 K/mm3 (140-440) H 12/04/19 07:45 Lymph % (Auto) 11.3 % (13.4-35.0) L 12/04/19 07:45 [place] % (Auto) 15.2 % (0.0-7.3) H 12/04/19 07:45 Eos % (Auto) 0.5 % (0.0-4.3) 12/04/19 07:45 Baso % (Auto) 0.6 % (0.0-1.8) 12/04/19 07:45 Lymph # 1.8 K/mm3 (1.2-5.4) 12/04/19 07:45 [place] # 2.4 K/mm3 (0.0-0.8) H 12/04/19 07:45 Eos # 0.1 K/mm3 (0.0-0.4) 12/04/19 07:45 Baso # 0.1 K/mm3 (0.0-0.1) 12/04/19 07:45 Add Manual Diff Complete 12/04/19 07:45 Total Counted 100 12/01/19 08:23 Seg Neutrophils % 72.4 % (40.0-70.0) H 12/04/19 07:45 Seg Neuts % (Manual) 91.0 % (40.0-70.0) H 12/01/19 08:23 Band Neutrophils % 0 % 12/01/19 08:23 Lymphocytes % (Manual) 3.0 % (13.4-35.0) L 12/01/19 08:23 Reactive Lymphs % (Man) 1.0 % 12/01/19 08:23 Monocytes % (Manual) 5.0 % (0.0-7.3) 12/01/19 08:23 Eosinophils % (Manual) 0 % (0.0-4.3) 12/01/19 08:23 Basophils % (Manual) 0 % (0.0-1.8) 12/01/19 08:23 Metamyelocytes % 0 % 12/01/19 08:23 Myelocytes % 0 % 12/01/19 08:23 Promyelocytes % 0 % 12/01/19 08:23 Blast Cells % 0 % 12/01/19 08:23 Nucleated RBC % Not Reportable 12/01/19 08:23 Seg Neutrophils # 11.5 K/mm3 (1.8-7.7) H 12/04/19 07:45 Seg Neutrophils # Man 20.7 K/mm3 (1.8-7.7) H 12/01/19 08:23 Band Neutrophils # 0.0 K/mm3 12/01/19 08:23 Lymphocytes # (Manual) 0.7 K/mm3 (1.2-5.4) L 12/01/19 08:23 Abs React Lymphs (Man) 0.2 K/mm3 12/01/19 08:23 Monocytes # (Manual) 1.1 K/mm3 (0.0-0.8) H 12/01/19 08:23 Eosinophils # (Manual) 0.0 K/mm3 (0.0-0.4) 12/01/19 08:23 Basophils # (Manual) 0.0 K/mm3 (0.0-0.1) 12/01/19 08:23 Metamyelocytes # 0.0 K/mm3 12/01/19 08:23 Myelocytes # 0.0 K/mm3 12/01/19 08:23 Promyelocytes # 0.0 K/mm3 12/01/19 08:23 Blast Cells # 0.0 K/mm3 12/01/19 08:23 WBC Morphology Not Reportable 12/01/19 08:23 Hypersegmented Neuts Not Reportable 12/01/19 08:23 Hyposegmented Neuts Not Reportable 12/01/19 08:23 Hypogranular Neuts Not Reportable 12/01/19 08:23 Smudge Cells Not Reportable 12/01/19 08:23 Toxic Granulation Not Reportable 12/01/19 08:23 Toxic Vacuolation Not Reportable 12/01/19 08:23 Dohle Bodies Not Reportable 12/01/19 08:23 Pelger-Huet Anomaly Not Reportable 12/01/19 08:23 Dominique Rods Not Reportable 12/01/19 08:23 Platelet Estimate Consistent w auto 12/01/19 08:23 Clumped Platelets Not Reportable 12/01/19 08:23 Plt Clumps, EDTA Not Reportable 12/01/19 08:23 Large Platelets Not Reportable 12/01/19 08:23 Giant Platelets Few 12/01/19 08:23 Platelet Satelliting Not Reportable 12/01/19 08:23 Plt Morphology Comment Not Reportable 12/01/19 08:23 RBC Morphology Not Reportable 12/01/19 08:23 Dimorphic RBCs Not Reportable 12/01/19 08:23 Polychromasia Few 12/01/19 08:23 Hypochromasia Few 12/01/19 08:23 Poikilocytosis Not Reportable 12/01/19 08:23 Anisocytosis Not Reportable 12/01/19 08:23 Microcytosis Not Reportable 12/01/19 08:23 Macrocytosis Not Reportable 12/01/19 08:23 Spherocytes Not Reportable 12/01/19 08:23 Pappenheimer Bodies Not Reportable 12/01/19 08:23 Sickle Cells Not Reportable 12/01/19 08:23 Target Cells 1+ 12/01/19 08:23 Tear Drop Cells Not Reportable 12/01/19 08:23 Ovalocytes Not Reportable 12/01/19 08:23 Helmet Cells Not Reportable 12/01/19 08:23 Frias-Nada Bodies Not Reportable 12/01/19 08:23 Mcewen Rings Not Reportable 12/01/19 08:23 [place] Cells Not Reportable 12/01/19 08:23 Bite Cells Not Reportable 12/01/19 08:23 Crenated Cell Not Reportable 12/01/19 08:23 Elliptocytes Not Reportable 12/01/19 08:23 Acanthocytes (Spur) Not Reportable 12/01/19 08:23 Rouleaux Not Reportable 12/01/19 08:23 Hemoglobin C Crystals Not Reportable 12/01/19 08:23 Schistocytes Not Reportable 12/01/19 08:23 Malaria parasites Not Reportable 12/01/19 08:23 Gregg Bodies Not Reportable 12/01/19 08:23 Hem Pathologist Commnt No 12/01/19 08:23 PT 17.0 Sec. (12.2-14.9) H 11/23/19 03:47 INR 1.36 (0.87-1.13) H 11/23/19 03:47 APTT 128.2 Sec. (24.2-36.6) H* 11/23/19 03:47 Heparin Anti-Xa Level 0.31 U.I./ml (0.3-0.7) 11/23/19 09:03 ABG pH 7.437 pH Units (7.350-7.450) 12/03/19 20:00 ABG pCO2 50.7 mm Hg 12/03/19 20:00 ABG pO2 68.3 mm Hg (80.0-90.0) L 12/03/19 20:00 ABG HCO3 33.5 mmol/L (20.0-26.0) H 12/03/19 20:00 ABG O2 Saturation 93.5 % (95.0-99.0) L 12/03/19 20:00 ABG O2 Content 9.5 (0.0-44) 12/03/19 20:00 ABG Base Excess 8.4 mmol/L (-2.0-3.0) H 12/03/19 20:00 ABG Hemoglobin 7.3 gm/dl (12.0-16.0) L 12/03/19 20:00 ABG Carboxyhemoglobin 2.3 % (0.0-5.0) 12/03/19 20:00 ABG Methemoglobin 0.4 % (0.0-1.5) 12/03/19 20:00 Oxyhemoglobin 90.9 % (95.0-99.0) L 12/03/19 20:00 FiO2 30 % 12/03/19 20:00 Sodium 140 mmol/L (137-145) 12/04/19 04:26 Potassium 4.9 mmol/L (3.6-5.0) 12/04/19 04:26 Chloride 96.5 mmol/L (98-107) L 12/04/19 04:26 Carbon Dioxide 28 mmol/L (22-30) 12/04/19 04:26 Anion Gap 20 mmol/L 12/04/19 04:26 BUN 21 mg/dL (7-17) H 12/04/19 04:26 Creatinine 0.6 mg/dL (0.7-1.2) L 12/04/19 04:26 Estimated GFR > 60 ml/min 12/04/19 04:26 BUN/Creatinine Ratio 35 % 12/04/19 04:26 Glucose 107 mg/dL (65-100) H 12/04/19 04:26 POC Glucose 135 (70-105) H 12/04/19 18:16 Lactic Acid 1.80 mmol/L (0.7-2.0) 11/25/19 05:05 Calcium 9.5 mg/dL (8.4-10.2) 12/04/19 04:26 Ionized Calcium 4.5 mg/dL (4.8-5.6) L 11/23/19 06:32 Phosphorus 4.20 mg/dL (2.5-4.5) D 11/28/19 08:59 Magnesium 2.30 mg/dL (1.7-2.3) 11/29/19 13:41 Total Bilirubin 0.30 mg/dL (0.1-1.2) 11/30/19 05:25 AST 246 units/L (5-40) H 11/30/19 05:25 ALT 274 units/L (7-56) H 11/30/19 05:25 Alkaline Phosphatase 203 units/L (35-129) H 11/30/19 05:25 Ammonia 42.0 umol/L (25-60) 11/29/19 13:41 Total Creatine Kinase 139 units/L (30-135) H 11/22/19 23:27 CK-MB (CK-2) 8.3 ng/mL (0.0-4.0) H 11/22/19 23:27 CK-MB (CK-2) Rel Index 5.9 (0-4) H 11/22/19 23:27 Troponin T < 0.010 ng/mL (0.00-0.029) 11/22/19 23:27 Total Protein 5.4 g/dL (6.3-8.2) L 11/30/19 05:25 Albumin 2.9 g/dL (3.9-5) L 11/30/19 05:25 Albumin/Globulin Ratio 1.2 % 11/30/19 05:25 Lipase 18 units/L (13-60) 11/23/19 00:34 Procalcitonin 1.09 ng/mL (<0.15) 11/23/19 04:53 Urine Color Yellow (Yellow) 11/22/19 23:17 Urine Turbidity Cloudy (Clear) 11/22/19 23:17 Urine pH 6.0 (5.0-7.0) 11/22/19 23:17 Ur Specific [place] 1.010 (1.003-1.030) 11/22/19 23:17 Urine Protein >500 mg/dL (Negative) 11/22/19 23:17 Urine Glucose (UA) >=500 mg/dL (Negative) 11/22/19 23:17 Urine Ketones 20 mg/dL (Negative) 11/22/19 23:17 Urine Blood Mod (Negative) 11/22/19 23:17 Urine Nitrite Neg (Negative) 11/22/19 23:17 Urine Bilirubin Neg (Negative) 11/22/19 23:17 Urine Urobilinogen 4.0 mg/dL (<2.0) 11/22/19 23:17 Ur Leukocyte Esterase Neg (Negative) 11/22/19 23:17 Urine WBC (Auto) 40.0 /HPF (0.0-6.0) H 11/22/19 23:17 Urine RBC (Auto) 10.0 /HPF (0.0-6.0) 11/22/19 23:17 U Epithel Cells (Auto) 1.0 /HPF (0-13.0) 11/22/19 23:17 Urine Bacteria (Auto) 2+ /HPF (Negative) 11/22/19 23:17 Urine Mucus Few /HPF 11/22/19 23:17 Salicylates < 0.3 mg/dL (2.8-20.0) L 11/22/19 23:27 Urine Opiates Screen Presumptive negative 11/22/19 23:17 Urine Methadone Screen Presumptive negative 11/22/19 23:17 Acetaminophen < 5.0 ug/mL (10.0-30.0) L 11/22/19 23:27 Ur Barbiturates Screen Presumptive negative 11/22/19 23:17 Ur Phencyclidine Scrn Presumptive negative 11/22/19 23:17 Ur Amphetamines Screen Presumptive negative 11/22/19 23:17 U Benzodiazepines Scrn Presumptive negative 11/22/19 23:17 Urine Cocaine Screen Presumptive negative 11/22/19 23:17 U Marijuana (THC) Screen Presumptive negative 11/22/19 23:17 Drugs of Abuse Note Disclamer 11/22/19 23:17 Plasma/Serum Alcohol 0.08 % (0-0.07) H 11/22/19 23:27 Hepatitis A IgM Ab Non-reactive (NonReactive) 11/23/19 01:19 Hep Bs Antigen Non-reactive (Negative) 11/23/19 01:19 Hep B Core IgM Ab Non-reactive (NonReactive) 11/23/19 01:19 Hepatitis C Antibody Non-reactive (NonReactive) 11/23/19 01:19 - Diagnostic Impressions Diagnostic Impressions: Echocardiogram 11/23/19 03:58 Transthoracic Echocardiogram Indication: Cardiac arrest BP: 131/89 HR: 115 Conclusions *The study quality is technically difficult. *Global left ventricular wall motion and contractility are within normal limits. *The estimated ejection fraction is 55-60%. *Abnormal left ventricular diastolic filling is observed, consistent with impaired relaxation. *There is no pericardial effusion. Findings Procedure Info: The study quality is technically difficult. The study was technically limited due to the patient's inability to lay in the left lateral decubitus position. Left Ventricle: The left ventricular chamber size is normal. There is no left ventricular hypertrophy. Global left ventricular wall motion and contractility are within normal limits. Global left ventricular systolic function is normal. The estimated ejection fraction is 55-60%. Abnormal left ventricular diastolic filling is observed, consistent with impaired relaxation. Left Atrium: The left atrial chamber size is normal. Aortic Valve: The aortic valve leaflets are mildly thickened. Mitral Valve: The mitral valve leaflets are mildly thickened. There is no evidence of mitral regurgitation. Tricuspid Valve: The tricuspid valve leaflets are normal. There is trace tricuspid regurgitation. The right ventricular systolic pressure is calculated at 33 mmHg. Pulmonic Valve: The pulmonic valve appears normal. Pericardium: The pericardium appears normal. There is no pericardial effusion. Aorta: The aorta appears normal. Venous: The inferior vena cava appears normal in size. Measurements Chambers 2D Name Value Normal Range IVSd (2D) 0.94 cm (0.6 - 1.1) LVPWd (2D) 0.81 cm (0.6 - 1.1) LVIDd (2D) 3.6 cm (3.7 - 5.6) LVIDs (2D) 2.27 cm (2 - 3.8) LV FS (2D) 36.93 % - EF Teichholz (2D) 67.76 % - Ao root diameter (2D) 3.03 cm (2 - 3.7) Volumes/Mass Name Value Normal Range LA ESV SP 4CH (A/L) 16.89 ml - LA ESV SP 4CH (MOD) 15.52 ml - Diastolic/Systolic Function Name Value Normal Range MV E-wave Vmax 0.55 m/sec - MV deceleration time 200.89 msec - MV A-wave Vmax 0.68 m/sec - MV E:A ratio 0.82 ratio - Aortic Valve Name Value Normal Range AV Vmax 1.1 m/sec - AV VTI 15.9 cm - AV peak gradient 4.86 mmHg - AV mean gradient 2.59 mmHg - LVOT diameter 2 cm - LVOT Vmax 1.03 m/sec - LVOT VTI 15.87 cm - LVOT peak gradient 4.24 mmHg - LVOT mean gradient 2.41 mmHg - SV LVOT 49.77 ml - JOSÉ MIGUEL (continuity Vmax) 2.93 cm2 - JOSÉ MIGUEL (continuity VTI) 3.13 cm2 - Tricuspid Valve Name Value Normal Range TR Vmax 2.74 m/sec - TR peak gradient 303 mmHg - RAP 3 mmHg - RVSP 33 mmHg - IVC diameter 1.77 cm (1.2 - 2.3) Pulmonic Valve/Qp:Qs Name Value Normal Range PV Vmax 0.77 m/sec - PV peak gradient 2.4 mmHg - PV acceleration time 114.18 msec - Dela Cruz/IV: Voiding Method External Female Catheter IV Catheter Type [Right Wrist] Peripheral IV IV Catheter Type [Left Wrist] Peripheral IV IV Catheter Type [Left Peripheral IV Antecubital] IV Catheter Type [Right INT / Saline Lock Forearm] IV Catheter Type [Left Hand] Peripheral IV Active Medications - Current Medications Current Medications: Generic Name Dose Route Start Last Admin Trade Name Freq PRN Reason Stop Dose Admin Lipase/Protease/Amylase 1 each 11/23/19 11:[address] 10,500 Unit FEEDTUBE PRN PRN For Clogged Feeding Tube Chlordiazepoxide HCl 50 mg 12/04/19 14:00 12/05/19 06:05 Librium PO 50 mg Q8H LUCHO Administration Fentanyl 25 mcg 12/04/19 17:00 12/04/19 16:46 Duragesic TD 25 mcg Q3D LUCHO Administration Fentanyl 50 mcg 12/05/19 02:10 Sublimaze IV Q10MIN PRN ANALGESIA Heparin Sodium (Porcine) 5,000 unit 11/23/19 22:00 12/05/19 10:05 Heparin SUB-Q 5,000 unit Q12HR LUCHO Administration Hydralazine HCl 10 mg 11/24/19 00:45 11/28/19 08:56 Apresoline IV 10 mg Q6H PRN Administration SBP > 160 Hydrophilic Ointment 1 applic 11/22/19 23:23 Vaseline Lip Therapy TP Q2HR PRN Dry Lips Dexmedetomidine HCl 400 mcg/ 104 mls @ 2.85 mls/hr 12/04/19 14:00 12/05/19 02:25 Sodium Chloride IV 0 mcg/kg/hr TITRATE LUCHO 0 mls/hr Titration Protocol 0.2 MCG/KG/HR Fentanyl Citrate 2,000 mcg in 100 mls @ 2.74 mls/hr 12/05/19 03:00 12/05/19 1 0:20 Fentanyl Drip Premix IV 2 mcg/kg/hr TITR LUCHO 5.48 mls/hr Administration Protocol 1 MCG/KG/HR Lansoprazole 30 mg 11/27/19 10:00 12/05/19 10:06 Prevacid Solutab FEEDTUBE 30 mg QDAY LUCHO Administration Levetiracetam 500 mg 11/29/19 10:00 12/05/19 10:06 Keppra PO 500 mg BID LUCHO Administration Lorazepam 2 mg 11/26/19 11:09 12/05/19 01:09 Ativan IV 2 mg Q4H PRN Administration Agitation Multi-Ingred Cream/Lotion/Oil/Oint 1 applic 11/22/19 23:23 Artificial Tears Ophth Oint OU Q4HR PRN Dry Eye(s) Quetiapine Fumarate 300 mg 11/30/19 22:00 12/05/19 10:06 Seroquel PO 300 mg BID LUCHO Administration Simple Syrup 15 ml 11/23/19 11:50 Simple Syrup FEEDTUBE PRN PRN Hypoglycemia Simple Syrup 30 ml 11/23/19 11:50 Simple Syrup FEEDTUBE PRN PRN Hypoglycemia Sodium Bicarbonate 325 mg 11/23/19 11:50 Sodium Bicarbonate FEEDTUBE PRN PRN For Clogged Feeding Tube Nutrition/Malnutrition Assess - Dietary Evaluation Nutrition/Malnutrition Findings: Nutrition Notes Start: 11/23/19 11:29 Freq: Status: Active Protocol: Document 11/28/19 10:27 LM (Rec: 11/28/19 10:35 LM [id number]) Nutrition Notes Initial or Follow up Reassessment Current Diagnosis Hypertension Other Pertinent Diagnosis Cardaic arrest, ETOH dependence, UTI Current Diet Vital AF 1.2 at 50 ml/hr Labs/Tests Na 146 K 3.3 BUN 25 Cr 0.6 Pertinent Medications Reviewed Height 5 ft 6 in Weight 54.8 kg Flat[place] Body Weight (kg) 59.09 BMI 19.5 Subjective/Other Information TF restarted. Pt tolerating TF at 50 ml/hr. Percent of energy/protein needs met: 100%/100% Burn Absent Trauma Absent GI Symptoms None Current % PO Negligible Minimum of two criteria No Muscle Mass Mild Depletion (non-severe) #1 Nutrition Diagnosis Inadequate oral intake Diagnosis Progress(for reassessment Continues documentation) Is patient on ventilator? Yes Is Patient Ambulatory and/or Out of Bed No REE-([facility]-confined to bed) 1402.224 Calculation Used for Recommendations [facility] Additional Notes Protein: 66-110g (1.2-2g/kg) Fluid: 1 ml/kcal Nutrition Intervention Change Diet Order: TF Nutrition Support: Vital AF 1.2 at 50 ml/hr Flush 200 ml q4h for hypernatremia Flush 80 ml q4h once hypernatremia resolves Kcal 1,440 Protein (gm) 90 Fluid (mL) 973 Goal #1 TF tolerance Goal #2 Meet at least 80% of energy and protein needs via TF Anticipated Discharge Needs: unable to determine at this time Follow-Up By: 12/05/19 Additional Comments F/U for TF tolerance
--- NOTE | 2019-12-05 15:25 | Progress Note ---
Assessment and Plan Patient is a 54-year-old woman with a history of hypertension, depression, alcohol abuse, who presented with cardiac arrest. According patient's clinical findings, it is likely that she has had anoxic brain injury secondary to cardiac arrest. Plan: 1. Anoxic brain injury: CT head: No acute abnormality. -EEG: Generalized slowing. No seizures or epileptiform activity. Patient found to have intact corneal/VOR/cough reflexes, and is withdrawing and lower extremities, therefore patient is not found to be brain . However, given that patient had an out of hospital cardiac arrest, the time of which is uncertain, the likelihood of meaningful neurological recovery is somewhat low. -Discussed prognosis with patient's mother. Family meeting took place on 11/29/2019, and options for further care were discussed. Family will decide and get back to us in regards to their decision of what they would like to do next. Patient reexamined on December 05, 2019, and no significant neurologic improvement noted from previous evaluation the week prior. - Cont. keppra 500mg BID for seizure prophylaxis. -Continue supportive care per primary team. Thank you for allowing me to take part in the care of this patient. Oliver Randhawa MD Neurology Subjective Date of service: 12/05/19 Principal diagnosis: Ac cardiopulmonary arrest; Ac hypoxemic resp failure; Acute encephalopathy Interval history: No acute events overnight. Objective - Exam Narrative Exam: Patient is intubated, and comatose. Pupils bilaterally 3 mm and reactive to light. Intact corneal/VOR/cough reflexes. Withdraws bilaterally in lower extremities but not upper extremities. 2+ reflexes throughout. - Vital Sign Vital Signs - 12hr 12/05/19 12/05/19 12/05/19 03:30 03:45 03:47 Temperature 98.9 F Pulse Rate 114 H 109 H Pulse Rate [ 109 H From Monitor] Respiratory 27 H 28 H Rate Blood Pressure 109/75 O2 Sat by Pulse 96 100 Oximetry 12/05/19 12/05/19 12/05/19 04:00 04:23 04:30 Temperature Pulse Rate 109 H 108 H 102 H Pulse Rate [ From Monitor] Respiratory 25 H 20 Rate Blood Pressure 97/66 97/66 101/64 O2 Sat by Pulse 97 98 98 Oximetry 12/05/19 12/05/19 12/05/19 05:00 05:30 06:00 Temperature Pulse Rate 118 H 121 H 110 H Pulse Rate [ From Monitor] Respiratory 26 H 23 22 Rate Blood Pressure 101/64 124/85 103/64 O2 Sat by Pulse 92 96 97 Oximetry 12/05/19 12/05/19 12/05/19 06:30 07:00 07:30 Temperature Pulse Rate 104 H 101 H 100 H Pulse Rate [ From Monitor] Respiratory 12 12 12 Rate Blood Pressure 103/67 112/76 111/77 O2 Sat by Pulse 97 99 100 Oximetry 12/05/19 12/05/19 12/05/19 08:00 08:23 08:30 Temperature 99.0 F Pulse Rate 102 H 102 H 103 H Pulse Rate [ 102 H From Monitor] Respiratory 12 12 Rate Blood Pressure 120/83 120/83 127/88 O2 Sat by Pulse 100 100 100 Oximetry 12/05/19 12/05/19 12/05/19 09:00 09:30 10:06 Temperature Pulse Rate 104 H 104 H 107 H Pulse Rate [ From Monitor] Respiratory 12 12 12 Rate Blood Pressure 119/82 113/76 113/76 O2 Sat by Pulse 99 99 100 Oximetry 12/05/19 12/05/19 12/05/19 10:30 11:00 11:31 Temperature Pulse Rate 106 H 108 H 106 H Pulse Rate [ From Monitor] Respiratory 12 12 12 Rate Blood Pressure 123/80 111/74 123/80 O2 Sat by Pulse 100 99 98 Oximetry 12/05/19 12/05/19 12/05/19 12:00 12:09 12:31 Temperature 98.6 F Pulse Rate 106 H 106 H 107 H Pulse Rate [ 109 H From Monitor] Respiratory 12 12 Rate Blood Pressure 113/74 113/74 111/74 O2 Sat by Pulse 100 98 97 Oximetry 12/05/19 12/05/19 12/05/19 13:00 13:31 14:00 Temperature Pulse Rate 105 H 105 H 108 H Pulse Rate [ From Monitor] Respiratory 12 12 12 Rate Blood Pressure 113/76 113/74 117/78 O2 Sat by Pulse 97 98 98 Oximetry 12/05/19 14:31 Temperature Pulse Rate 107 H Pulse Rate [ From Monitor] Respiratory 13 Rate Blood Pressure 117/78 O2 Sat by Pulse 98 Oximetry - General Apperance Constitutional: acutely ill - EENT EENT: ATNC, PERRL, mucous membranes moist - Respiratory Respiratory: decreased breath sounds - Cardiovascular Cardiovascular: regular rate, normal S1, normal S2 Extremities: no clubbing, cyanosis, no inflammation - Gastrointestinal Gastrointestinal: normoactive bowel sounds, soft, non-tender - Laboratory Findings CBC and BMP: 12/04/19 07:45 12/04/19 04:26 Abnormal Lab Findings: Abnormal Labs 11/22/19 11/22/19 11/22/19 23:17 23:18 23:27 WBC 21.2 H RBC 3.59 L Hgb 9.8 L Hct MCH 27 L RDW 18.6 H Plt Count 454 H Lymph % (Auto) Wallace % (Auto) Wallace # Seg Neutrophils % Seg Neuts % (Manual) 86.0 H Lymphocytes % (Manual) 9.0 L Seg Neutrophils # Seg Neutrophils # Man 18.2 H Lymphocytes # (Manual) Monocytes # (Manual) 1.1 H PT INR APTT ABG pH ABG pO2 ABG HCO3 ABG O2 Saturation ABG Base Excess ABG Hemoglobin Oxyhemoglobin Sodium Potassium Chloride Carbon Dioxide BUN Creatinine Glucose POC Glucose 53 L Lactic Acid Calcium Ionized Calcium Phosphorus Magnesium Total Bilirubin AST ALT Alkaline Phosphatase Ammonia Total Creatine Kinase CK-MB (CK-2) CK-MB (CK-2) Rel Index Total Protein Albumin Urine WBC (Auto) 40.0 H Salicylates Acetaminophen Plasma/Serum Alcohol 11/22/19 11/22/19 11/22/19 23:27 23:27 23:27 WBC RBC Hgb Hct MCH RDW Plt Count Lymph % (Auto) Wallace % (Auto) Wallace # Seg Neutrophils % Seg Neuts % (Manual) Lymphocytes % (Manual) Seg Neutrophils # Seg Neutrophils # Man Lymphocytes # (Manual) Monocytes # (Manual) PT INR APTT ABG pH ABG pO2 ABG HCO3 ABG O2 Saturation ABG Base Excess ABG Hemoglobin Oxyhemoglobin Sodium Potassium 2.4 L* Chloride 85.1 L Carbon Dioxide 19 L BUN Creatinine 0.5 L Glucose 261 H POC Glucose Lactic Acid Calcium Ionized Calcium Phosphorus Magnesium Total Bilirubin AST 609 H ALT 152 H Alkaline Phosphatase 160 H Ammonia 117.0 H Total Creatine Kinase 139 H CK-MB (CK-2) 8.3 H CK-MB (CK-2) Rel Index 5.9 H Total Protein Albumin 3.6 L Urine WBC (Auto) Salicylates < 0.3 L Acetaminophen Plasma/Serum Alcohol 11/22/19 11/22/19 11/23/19 23:27 23:27 01:10 WBC RBC Hgb Hct MCH RDW Plt Count Lymph % (Auto) Wallace % (Auto) Wallace # Seg Neutrophils % Seg Neuts % (Manual) Lymphocytes % (Manual) Seg Neutrophils # Seg Neutrophils # Man Lymphocytes # (Manual) Monocytes # (Manual) PT INR APTT ABG pH 7.273 L ABG pO2 209.7 H ABG HCO3 ABG O2 Saturation 99.2 H ABG Base Excess -3.9 L ABG Hemoglobin 10.6 L Oxyhemoglobin 93.9 L Sodium Potassium Chloride Carbon Dioxide BUN Creatinine Glucose POC Glucose Lactic Acid Calcium Ionized Calcium Phosphorus Magnesium Total Bilirubin AST ALT Alkaline Phosphatase Ammonia Total Creatine Kinase CK-MB (CK-2) CK-MB (CK-2) Rel Index Total Protein Albumin Urine WBC (Auto) Salicylates Acetaminophen < 5.0 L Plasma/Serum Alcohol 0.08 H 11/23/19 11/23/19 11/23/19 01:19 01:19 03:47 WBC RBC Hgb Hct MCH RDW Plt Count Lymph % (Auto) Wallace % (Auto) Wallace # Seg Neutrophils % Seg Neuts % (Manual) Lymphocytes % (Manual) Seg Neutrophils # Seg Neutrophils # Man Lymphocytes # (Manual) Monocytes # (Manual) PT 16.3 H INR 1.29 H APTT ABG pH ABG pO2 ABG HCO3 ABG O2 Saturation ABG Base Excess ABG Hemoglobin Oxyhemoglobin Sodium Potassium Chloride Carbon Dioxide BUN Creatinine Glucose POC Glucose Lactic Acid 2.10 H* 5.00 H* Calcium Ionized Calcium Phosphorus Magnesium Total Bilirubin AST ALT Alkaline Phosphatase Ammonia Total Creatine Kinase CK-MB (CK-2) CK-MB (CK-2) Rel Index Total Protein Albumin Urine WBC (Auto) Salicylates Acetaminophen Plasma/Serum Alcohol 11/23/19 11/23/19 11/23/19 03:47 03:47 04:53 WBC RBC Hgb 9.4 L Hct MCH RDW Plt Count Lymph % (Auto) Wallace % (Auto) Wallace # Seg Neutrophils % Seg Neuts % (Manual) Lymphocytes % (Manual) Seg Neutrophils # Seg Neutrophils # Man Lymphocytes # (Manual) Monocytes # (Manual) PT 17.0 H INR 1.36 H APTT 128.2 H* ABG pH ABG pO2 ABG HCO3 ABG O2 Saturation ABG Base Excess ABG Hemoglobin Oxyhemoglobin Sodium Potassium Chloride Carbon Dioxide 18 L BUN Creatinine 0.5 L Glucose 105 H POC Glucose Lactic Acid Calcium 8.3 L Ionized Calcium Phosphorus 2.40 L Magnesium Total Bilirubin 1.30 H AST 761 H ALT 158 H Alkaline Phosphatase 143 H Ammonia Total Creatine Kinase CK-MB (CK-2) CK-MB (CK-2) Rel Index Total Protein Albumin 2.8 L Urine WBC (Auto) Salicylates Acetaminophen Plasma/Serum Alcohol 11/23/19 11/23/19 11/23/19 05:12 06:32 06:32 WBC 16.8 H RBC 3.31 L Hgb 8.9 L Hct 28.7 L MCH 27 L RDW 18.6 H Plt Count Lymph % (Auto) Wallace % (Auto) Wallace # Seg Neutrophils % Seg Neuts % (Manual) 94.0 H Lymphocytes % (Manual) 1.0 L Seg Neutrophils # Seg Neutrophils # Man 15.8 H Lymphocytes # (Manual) 0.2 L Monocytes # (Manual) PT INR APTT ABG pH ABG pO2 ABG HCO3 ABG O2 Saturation ABG Base Excess -3.2 L ABG Hemoglobin 9.0 L Oxyhemoglobin 93.6 L Sodium Potassium Chloride Carbon Dioxide BUN Creatinine Glucose POC Glucose Lactic Acid Calcium Ionized Calcium 4.5 L Phosphorus Magnesium Total Bilirubin AST ALT Alkaline Phosphatase Ammonia Total Creatine Kinase CK-MB (CK-2) CK-MB (CK-2) Rel Index Total Protein Albumin Urine WBC (Auto) Salicylates Acetaminophen Plasma/Serum Alcohol 11/23/19 11/24/19 11/24/19 06:32 04:35 04:35 WBC RBC Hgb Hct MCH RDW Plt Count Lymph % (Auto) Wallace % (Auto) Wallace # Seg Neutrophils % Seg Neuts % (Manual) Lymphocytes % (Manual) Seg Neutrophils # Seg Neutrophils # Man Lymphocytes # (Manual) Monocytes # (Manual) PT INR APTT ABG pH ABG pO2 ABG HCO3 ABG O2 Saturation ABG Base Excess ABG Hemoglobin Oxyhemoglobin Sodium Potassium Chloride Carbon Dioxide BUN Creatinine Glucose POC Glucose Lactic Acid 3.30 H* Calcium Ionized Calcium Phosphorus Magnesium 1.40 L Total Bilirubin AST ALT Alkaline Phosphatase Ammonia 98.0 H Total Creatine Kinase CK-MB (CK-2) CK-MB (CK-2) Rel Index Total Protein Albumin Urine WBC (Auto) Salicylates Acetaminophen Plasma/Serum Alcohol 11/24/19 11/25/19 11/25/19 05:22 04:34 05:05 WBC 17.3 H RBC 2.88 L Hgb 7.8 L Hct 24.6 L MCH 27 L RDW 18.5 H Plt Count Lymph % (Auto) 7.7 L Wallace % (Auto) 9.7 H Wallace # 1.7 H Seg Neutrophils % 82.2 H Seg Neuts % (Manual) Lymphocytes % (Manual) Seg Neutrophils # 14.2 H Seg Neutrophils # Man Lymphocytes # (Manual) Monocytes # (Manual) PT INR APTT ABG pH 7.475 H ABG pO2 ABG HCO3 29.4 H 32.3 H ABG O2 Saturation ABG Base Excess 5.4 H 6.9 H ABG Hemoglobin 9.0 L 10.6 L Oxyhemoglobin 94.3 L Sodium Potassium Chloride Carbon Dioxide BUN Creatinine Glucose POC Glucose Lactic Acid Calcium Ionized Calcium Phosphorus Magnesium Total Bilirubin AST ALT Alkaline Phosphatase Ammonia Total Creatine Kinase CK-MB (CK-2) CK-MB (CK-2) Rel Index Total Protein Albumin Urine WBC (Auto) Salicylates Acetaminophen Plasma/Serum Alcohol 11/25/19 11/25/19 11/26/19 05:05 22:46 03:31 WBC RBC Hgb Hct MCH RDW Plt Count Lymph % (Auto) Wallace % (Auto) Wallace # Seg Neutrophils % Seg Neuts % (Manual) Lymphocytes % (Manual) Seg Neutrophils # Seg Neutrophils # Man Lymphocytes # (Manual) Monocytes # (Manual) PT INR APTT ABG pH 7.459 H ABG pO2 ABG HCO3 34.2 H ABG O2 Saturation ABG Base Excess 9.4 H ABG Hemoglobin 7.6 L Oxyhemoglobin 94.8 L Sodium 152 H D 147 H Potassium 2.3 L* D 2.8 L* D Chloride 107.8 H Carbon Dioxide 31 H D 33 H BUN Creatinine 0.6 L 0.6 L Glucose 148 H 177 H POC Glucose Lactic Acid Calcium Ionized Calcium Phosphorus Magnesium Total Bilirubin AST 105 H ALT 71 H Alkaline Phosphatase 155 H Ammonia Total Creatine Kinase CK-MB (CK-2) CK-MB (CK-2) Rel Index Total Protein 5.2 L D Albumin 2.9 L Urine WBC (Auto) Salicylates Acetaminophen Plasma/Serum Alcohol 11/26/19 11/26/19 11/27/19 08:24 08:24 04:20 WBC 12.0 H RBC 3.00 L Hgb 8.0 L 9.3 L Hct 25.9 L 29.7 L MCH 27 L RDW 18.5 H Plt Count Lymph % (Auto) Wallace % (Auto) Wallace # Seg Neutrophils % Seg Neuts % (Manual) 89.0 H Lymphocytes % (Manual) 4.0 L Seg Neutrophils # Seg Neutrophils # Man 10.7 H Lymphocytes # (Manual) 0.5 L Monocytes # (Manual) PT INR APTT ABG pH ABG pO2 ABG HCO3 ABG O2 Saturation ABG Base Excess ABG Hemoglobin Oxyhemoglobin Sodium 146 H Potassium 3.4 L D Chloride Carbon Dioxide BUN Creatinine 0.5 L Glucose 165 H POC Glucose Lactic Acid Calcium Ionized Calcium Phosphorus Magnesium Total Bilirubin AST 57 H ALT Alkaline Phosphatase 166 H Ammonia Total Creatine Kinase CK-MB (CK-2) CK-MB (CK-2) Rel Index Total Protein Albumin 2.9 L Urine WBC (Auto) Salicylates Acetaminophen Plasma/Serum Alcohol 11/27/19 11/27/19 11/27/19 04:28 04:28 04:42 WBC RBC Hgb Hct MCH RDW Plt Count Lymph % (Auto) Wallace % (Auto) Wallace # Seg Neutrophils % Seg Neuts % (Manual) Lymphocytes % (Manual) Seg Neutrophils # Seg Neutrophils # Man Lymphocytes # (Manual) Monocytes # (Manual) PT INR APTT ABG pH 7.470 H ABG pO2 74.0 L ABG HCO3 33.8 H ABG O2 Saturation ABG Base Excess 9.1 H ABG Hemoglobin 8.7 L Oxyhemoglobin 94.7 L Sodium 146 H Potassium 2.9 L* Chloride Carbon Dioxide BUN 25 H Creatinine Glucose 213 H POC Glucose Lactic Acid Calcium Ionized Calcium Phosphorus 1.00 L Magnesium Total Bilirubin AST ALT Alkaline Phosphatase Ammonia Total Creatine Kinase CK-MB (CK-2) CK-MB (CK-2) Rel Index Total Protein Albumin Urine WBC (Auto) Salicylates Acetaminophen Plasma/Serum Alcohol 11/27/19 11/27/19 11/27/19 05:37 12:20 15:46 WBC RBC Hgb Hct MCH RDW Plt Count Lymph % (Auto) Wallace % (Auto) Wallace # Seg Neutrophils % Seg Neuts % (Manual) Lymphocytes % (Manual) Seg Neutrophils # Seg Neutrophils # Man Lymphocytes # (Manual) Monocytes # (Manual) PT INR APTT ABG pH ABG pO2 ABG HCO3 ABG O2 Saturation ABG Base Excess ABG Hemoglobin Oxyhemoglobin Sodium 146 H Potassium 3.5 L D Chloride Carbon Dioxide BUN 24 H Creatinine 0.6 L Glucose 187 H POC Glucose 117 H 220 H Lactic Acid Calcium Ionized Calcium Phosphorus Magnesium Total Bilirubin AST ALT Alkaline Phosphatase Ammonia Total Creatine Kinase CK-MB (CK-2) CK-MB (CK-2) Rel Index Total Protein Albumin Urine WBC (Auto) Salicylates Acetaminophen Plasma/Serum Alcohol 11/27/19 11/28/19 11/28/19 17:28 05:00 05:02 WBC RBC Hgb Hct MCH RDW Plt Count Lymph % (Auto) Wallace % (Auto) Wallace # Seg Neutrophils % Seg Neuts % (Manual) Lymphocytes % (Manual) Seg Neutrophils # Seg Neutrophils # Man Lymphocytes # (Manual) Monocytes # (Manual) PT INR APTT ABG pH ABG pO2 72.4 L ABG HCO3 33.6 H ABG O2 Saturation 94.1 L ABG Base Excess 7.3 H ABG Hemoglobin Oxyhemoglobin 91.8 L Sodium 146 H Potassium 3.3 L Chloride Carbon Dioxide BUN 25 H Creatinine 0.6 L Glucose 176 H POC Glucose 198 H Lactic Acid Calcium Ionized Calcium Phosphorus Magnesium Total Bilirubin AST ALT Alkaline Phosphatase Ammonia Total Creatine Kinase CK-MB (CK-2) CK-MB (CK-2) Rel Index Total Protein Albumin Urine WBC (Auto) Salicylates Acetaminophen Plasma/Serum Alcohol 11/28/19 11/28/19 11/29/19 05:02 18:55 10:43 WBC 15.2 H 19.0 H RBC 3.06 L 3.01 L Hgb 8.3 L 8.3 L Hct 27.0 L 26.4 L MCH 27 L RDW 19.0 H 19.7 H Plt Count 479 H 611 H Lymph % (Auto) Wallace % (Auto) Wallace # Seg Neutrophils % Seg Neuts % (Manual) 92.0 H Lymphocytes % (Manual) 2.0 L Seg Neutrophils # Seg Neutrophils # Man 14.0 H Lymphocytes # (Manual) 0.3 L Monocytes # (Manual) PT INR APTT ABG pH ABG pO2 ABG HCO3 ABG O2 Saturation ABG Base Excess ABG Hemoglobin Oxyhemoglobin Sodium Potassium Chloride Carbon Dioxide BUN Creatinine Glucose POC Glucose 138 H Lactic Acid Calcium Ionized Calcium Phosphorus Magnesium Total Bilirubin AST ALT Alkaline Phosphatase Ammonia Total Creatine Kinase CK-MB (CK-2) CK-MB (CK-2) Rel Index Total Protein Albumin Urine WBC (Auto) Salicylates Acetaminophen Plasma/Serum Alcohol 11/29/19 11/29/19 11/29/19 10:43 12:27 19:25 WBC RBC Hgb Hct MCH RDW Plt Count Lymph % (Auto) Wallace % (Auto) Wallace # Seg Neutrophils % Seg Neuts % (Manual) Lymphocytes % (Manual) Seg Neutrophils # Seg Neutrophils # Man Lymphocytes # (Manual) Monocytes # (Manual) PT INR APTT ABG pH ABG pO2 ABG HCO3 ABG O2 Saturation ABG Base Excess ABG Hemoglobin Oxyhemoglobin Sodium Potassium 2.8 L* Chloride Carbon Dioxide BUN 20 H Creatinine 0.5 L Glucose 121 H POC Glucose 128 H 120 H Lactic Acid Calcium Ionized Calcium Phosphorus Magnesium Total Bilirubin AST ALT Alkaline Phosphatase Ammonia Total Creatine Kinase CK-MB (CK-2) CK-MB (CK-2) Rel Index Total Protein Albumin Urine WBC (Auto) Salicylates Acetaminophen Plasma/Serum Alcohol 11/29/19 11/30/19 11/30/19 23:46 04:10 05:02 WBC RBC Hgb Hct MCH RDW Plt Count Lymph % (Auto) Wallace % (Auto) Wallace # Seg Neutrophils % Seg Neuts % (Manual) Lymphocytes % (Manual) Seg Neutrophils # Seg Neutrophils # Man Lymphocytes # (Manual) Monocytes # (Manual) PT INR APTT ABG pH ABG pO2 76.3 L ABG HCO3 32.5 H ABG O2 Saturation ABG Base Excess 6.9 H ABG Hemoglobin 8.0 L Oxyhemoglobin 92.6 L Sodium Potassium Chloride Carbon Dioxide BUN Creatinine Glucose POC Glucose 116 H 128 H Lactic Acid Calcium Ionized Calcium Phosphorus Magnesium Total Bilirubin AST ALT Alkaline Phosphatase Ammonia Total Creatine Kinase CK-MB (CK-2) CK-MB (CK-2) Rel Index Total Protein Albumin Urine WBC (Auto) Salicylates Acetaminophen Plasma/Serum Alcohol 11/30/19 11/30/19 11/30/19 05:25 05:25 12:59 WBC 18.4 H RBC 3.10 L Hgb 8.5 L Hct 27.5 L MCH 27 L RDW 20.9 H Plt Count 691 H Lymph % (Auto) 7.1 L Wallace % (Auto) 7.7 H Wallace # 1.4 H Seg Neutrophils % 83.4 H Seg Neuts % (Manual) Lymphocytes % (Manual) Seg Neutrophils # 15.4 H Seg Neutrophils # Man Lymphocytes # (Manual) Monocytes # (Manual) PT INR APTT ABG pH ABG pO2 ABG HCO3 ABG O2 Saturation ABG Base Excess ABG Hemoglobin Oxyhemoglobin Sodium 146 H Potassium Chloride 107.2 H Carbon Dioxide BUN Creatinine 0.5 L Glucose 132 H POC Glucose 124 H Lactic Acid Calcium Ionized Calcium Phosphorus Magnesium Total Bilirubin AST 246 H ALT 274 H Alkaline Phosphatase 203 H Ammonia Total Creatine Kinase CK-MB (CK-2) CK-MB (CK-2) Rel Index Total Protein 5.4 L Albumin 2.9 L Urine WBC (Auto) Salicylates Acetaminophen Plasma/Serum Alcohol 11/30/19 12/01/19 12/01/19 17:53 00:05 05:10 WBC RBC Hgb Hct MCH RDW Plt Count Lymph % (Auto) Wallace % (Auto) Wallace # Seg Neutrophils % Seg Neuts % (Manual) Lymphocytes % (Manual) Seg Neutrophils # Seg Neutrophils # Man Lymphocytes # (Manual) Monocytes # (Manual) PT INR APTT ABG pH ABG pO2 ABG HCO3 ABG O2 Saturation ABG Base Excess ABG Hemoglobin Oxyhemoglobin Sodium Potassium Chloride Carbon Dioxide BUN Creatinine Glucose POC Glucose 113 H 143 H 145 H Lactic Acid Calcium Ionized Calcium Phosphorus Magnesium Total Bilirubin AST ALT Alkaline Phosphatase Ammonia Total Creatine Kinase CK-MB (CK-2) CK-MB (CK-2) Rel Index Total Protein Albumin Urine WBC (Auto) Salicylates Acetaminophen Plasma/Serum Alcohol 12/01/19 12/01/19 12/01/19 05:33 08:23 08:23 WBC 22.7 H RBC 2.88 L Hgb 7.9 L Hct 25.2 L MCH 27 L RDW 21.0 H Plt Count 732 H Lymph % (Auto) Wallace % (Auto) Wallace # Seg Neutrophils % Seg Neuts % (Manual) 91.0 H Lymphocytes % (Manual) 3.0 L Seg Neutrophils # Seg Neutrophils # Man 20.7 H Lymphocytes # (Manual) 0.7 L Monocytes # (Manual) 1.1 H PT INR APTT ABG pH ABG pO2 68.6 L ABG HCO3 34.1 H ABG O2 Saturation ABG Base Excess 9.0 H ABG Hemoglobin 6.5 L Oxyhemoglobin 94.7 L Sodium Potassium Chloride Carbon Dioxide BUN Creatinine 0.5 L Glucose 125 H POC Glucose Lactic Acid Calcium Ionized Calcium Phosphorus Magnesium Total Bilirubin AST ALT Alkaline Phosphatase Ammonia Total Creatine Kinase CK-MB (CK-2) CK-MB (CK-2) Rel Index Total Protein Albumin Urine WBC (Auto) Salicylates Acetaminophen Plasma/Serum Alcohol 12/01/19 12/01/19 12/01/19 13:21 17:54 20:59 WBC RBC Hgb Hct MCH RDW Plt Count Lymph % (Auto) Wallace % (Auto) Wallace # Seg Neutrophils % Seg Neuts % (Manual) Lymphocytes % (Manual) Seg Neutrophils # Seg Neutrophils # Man Lymphocytes # (Manual) Monocytes # (Manual) PT INR APTT ABG pH ABG pO2 78.3 L ABG HCO3 33.8 H ABG O2 Saturation 94.9 L ABG Base Excess 7.9 H ABG Hemoglobin 11.5 L Oxyhemoglobin 92.3 L Sodium Potassium Chloride Carbon Dioxide BUN Creatinine Glucose POC Glucose 111 H 115 H Lactic Acid Calcium Ionized Calcium Phosphorus Magnesium Total Bilirubin AST ALT Alkaline Phosphatase Ammonia Total Creatine Kinase CK-MB (CK-2) CK-MB (CK-2) Rel Index Total Protein Albumin Urine WBC (Auto) Salicylates Acetaminophen Plasma/Serum Alcohol 12/02/19 12/03/19 12/04/19 12:55 20:00 04:26 WBC 15.2 H RBC 2.69 L Hgb 7.4 L Hct 23.6 L MCH 27 L RDW 19.9 H Plt Count 838 H Lymph % (Auto) Wallace % (Auto) Wallace # Seg Neutrophils % Seg Neuts % (Manual) Lymphocytes % (Manual) Seg Neutrophils # Seg Neutrophils # Man Lymphocytes # (Manual) Monocytes # (Manual) PT INR APTT ABG pH ABG pO2 68.3 L ABG HCO3 33.5 H ABG O2 Saturation 93.5 L ABG Base Excess 8.4 H ABG Hemoglobin 7.3 L Oxyhemoglobin 90.9 L Sodium Potassium Chloride Carbon Dioxide BUN Creatinine Glucose POC Glucose 107 H Lactic Acid Calcium Ionized Calcium Phosphorus Magnesium Total Bilirubin AST ALT Alkaline Phosphatase Ammonia Total Creatine Kinase CK-MB (CK-2) CK-MB (CK-2) Rel Index Total Protein Albumin Urine WBC (Auto) Salicylates Acetaminophen Plasma/Serum Alcohol 12/04/19 12/04/19 12/04/19 04:26 07:45 12:02 WBC 15.9 H RBC 2.88 L Hgb 7.9 L Hct 25.1 L MCH RDW 20.4 H Plt Count 839 H Lymph % (Auto) 11.3 L Wallace % (Auto) 15.2 H Wallace # 2.4 H Seg Neutrophils % 72.4 H Seg Neuts % (Manual) Lymphocytes % (Manual) Seg Neutrophils # 11.5 H Seg Neutrophils # Man Lymphocytes # (Manual) Monocytes # (Manual) PT INR APTT ABG pH ABG pO2 ABG HCO3 ABG O2 Saturation ABG Base Excess ABG Hemoglobin Oxyhemoglobin Sodium Potassium Chloride 96.5 L Carbon Dioxide BUN 21 H Creatinine 0.6 L Glucose 107 H POC Glucose 138 H Lactic Acid Calcium Ionized Calcium Phosphorus Magnesium Total Bilirubin AST ALT Alkaline Phosphatase Ammonia Total Creatine Kinase CK-MB (CK-2) CK-MB (CK-2) Rel Index Total Protein Albumin Urine WBC (Auto) Salicylates Acetaminophen Plasma/Serum Alcohol 12/04/19 12/05/19 18:16 11:55 WBC RBC Hgb Hct MCH RDW Plt Count Lymph % (Auto) Wallace % (Auto) Wallace # Seg Neutrophils % Seg Neuts % (Manual) Lymphocytes % (Manual) Seg Neutrophils # Seg Neutrophils # Man Lymphocytes # (Manual) Monocytes # (Manual) PT INR APTT ABG pH ABG pO2 ABG HCO3 ABG O2 Saturation ABG Base Excess ABG Hemoglobin Oxyhemoglobin Sodium Potassium Chloride Carbon Dioxide BUN Creatinine Glucose POC Glucose 135 H 125 H Lactic Acid Calcium Ionized Calcium Phosphorus Magnesium Total Bilirubin AST ALT Alkaline Phosphatase Ammonia Total Creatine Kinase CK-MB (CK-2) CK-MB (CK-2) Rel Index Total Protein Albumin Urine WBC (Auto) Salicylates Acetaminophen Plasma/Serum Alcohol
--- NOTE | 2019-12-05 17:03 | Progress Note ---
Assessment and Plan Cultures: 11/22/2019 urine culture:no significant growth 11/22/2019 tracheal aspirate culture: H. influenzae 11/23/2019 blood culture: No growth A/P: 54-year-old female with hypertension, depression, tobacco use, alcohol abuse was brought into the emergency room on 11/22/2019 after she went into respiratory arrest at home requiring CPR by EMS: #Sepsis: Source could be UTI versus pneumonitis versus SBP. UA showed pyuria. RUQ US showed no ascites. Completed 7 days of Ceftriaxone on 11/29/2019. #Pneumonitis, acute respiratory failure: Possibly aspiration. No pneumonia seen. On mechanical ventilation. #Elevated LFTs, alcohol abuse, status post arrest requiring CPR: Trend LFTs. RUQ US showed no ascites. #Acute encephalopathy: Likely multifactorial from alcohol abuse, status post arrest, electrolyte abnormalities. #Diarrhea: likely combination of tube feeds and lactulose. Recs: continue off abx trend CBC and LFTs overall guarded prognosis Freddy Plata MD [facility] M: [phone] O: [phone] F: [phone] Subjective Date of service: 12/05/19 Principal diagnosis: Ac cardiopulmonary arrest; Ac hypoxemic resp failure; Acute encephalopathy Interval history: Remains afebrile with no acute change in status. Objective - Exam Narrative Exam: Constitutional: comatose, intubated Head, Ears, Nose: Normocephalic, atraumatic. Eyes: Conjunctivae/corneas clear. Neck: intubated Oral: intubated Cardiovascular: S1, S2 normal Respiratory: Good air entry, clear to auscultation bilaterally GI: slightly distended, bowel sounds present. Rectal tube present with liquid stool Musculoskeletal: No pedal edema, no cyanosis. Skin: No rash or abscess Hem/Lymphatic: No palpable cervical or supraclavicular nodes. No lymphangitis Psych: no agitation. Neurological: comatose, intubated, on vent - Constitutional Vitals: Vital Signs Temp Pulse Resp BP Pulse Ox 99.0 F 112 H 12 109/77 98 12/05/19 16:00 12/05/19 16:13 12/05/19 15:31 12/05/19 16:13 12/05/19 16:13 Temperature -Last 24 Hours Temperature 99.0 F Temperature 98.6 F Temperature 99.0 F Temperature 98.9 F Temperature 99.0 F Temperature 99.1 F - Labs CBC & Chem 7: 12/04/19 07:45 12/04/19 04:26 Labs: Abnormal lab results 12/04/19 12/05/19 Range/Units 18:16 11:55 POC Glucose 135 H 125 H (70-105)
--- NOTE | 2019-12-05 19:39 | Progress Note ---
Assessment and Plan Acute cardiopulmonary arrest with ROSC Acute hypoxemic respiratory failure on MVS Acute metabolic-toxic encephalopathy Metabolic acidosis/alcoholic acidosis/Lactic acidosis Ischemic hepatitis Leucocytosis with lactic acidosis Tobacco use disorder ALcohol use Disorder Hypokalemia High grade fevers - placed consult for trach and PEG - CXR reviewed and addressed - continue Librium at 50 mg po q8h - continue Precedex during weaning trials - continue to rest on AC mode qhs - continue Seroquel for tentative delirium and to spare IV sedation - get ABG prn at this point - continue empiric Antibiotics per ID recommendations; de-escalate based on HILARIO /sensitivities / clinical progress - CIWA protocol - rest opn AC mode qhs for now - VAP bundle addressed (continue aspiration precautions, HOB>40) - ontinue daily SAT's and assessment for readiness for SBT (For PSV trial today) - Continue Intermittent sedation until patient's neurologic state can be better evaluated - begin Seroquel for agitation / to spare IV sedatives - Continue VTE and Stress ulcer prophylaxis - Continue enteric nutritional support. Monitor glycemic control, with target blood glucose 140-180 mg/dL while critically ill (Avoid hypoglycemia) - Continue daily SAT assessment as tolerated - Continue to wean supplemental oxygen for target O2 sat's > 90% - ABG and CXR prn - continue bronchodilators with p[ulmonary hygiene per RT - Continue to trend leukocytosis and lactic acidosis - Continue to treat for hepatic encephalopathy- especially with elevated ammonia levels- lactulose - Continue thiamine, multivitamin and electrolyte replacement - Continue to avoid nephrotoxins, adjust all medications fro GFR and CrCL - Continue bronchodilators with pulmonary hygiene - Continue to avoid benzodiazepines , as much as possible, to reduce the possibility of delirium - Continue prn analgesia per CPOT score - Continue to maintain of sleep-wake cycle, avoid delirium - PT/OT/ROM exercises- awaiting PT/OT evaluation - Continue mobility protocol and skin assessment per protocol for pressure ulcer prevention - Continue to monitor for clinical seizures - Continue Nicotine withdrawal precautions, alcohol withdrawal precautions - continue other care per attending / other consultants ..... re-evaluate in am & prn CONDITION: CRITICAL PROGNOSIS: GUARDED CODE STATUS: FULL CODE The high probability of a clinically significant, sudden or life-threatening deterioration of the [respiratory, cardiovascular,GI/hepatology] system(s) required my full and direct attention, intervention and personal management. The aggregate critical care time was [31] minutes without overlap. Time includes spent on; [x] Data Review and interpretation [x] Patient assessment and monitoring of vital signs [x] Documentation [x] Medication orders and management Subjective Date of service: 12/05/19 Principal diagnosis: Ac cardiopulmonary arrest; Ac hypoxemic resp failure; Acute encephalopathy Interval history: Patient is seen today for: Acute cardiopulmonary arrest with ROSC; Acute hypoxemic respiratory failure; Acute metabolic-toxic encephalopathy; Ischemic hepatitis; Leucocytosis with lactic acidosis; Tobacco use disorder; Alcohol use Disorder; Hypokalemia; High grade fevers Seen and examined at bedside; 24hour events reviewed; nursing and respiratory care staff consulted; no adverse overnight events reported to me; resting peacefully in bed; remains on MVS; tenuously tolerating SBT; still with intermittent agitation Objective Vital Signs - 12hr 12/05/19 12/05/19 12/05/19 08:00 08:23 08:30 Temperature 99.0 F Pulse Rate 102 H 102 H 103 H Pulse Rate [ 102 H From Monitor] Respiratory 12 12 Rate Blood Pressure 120/83 120/83 127/88 O2 Sat by Pulse 100 100 100 Oximetry 12/05/19 12/05/19 12/05/19 09:00 09:30 10:06 Temperature Pulse Rate 104 H 104 H 107 H Pulse Rate [ From Monitor] Respiratory 12 12 12 Rate Blood Pressure 119/82 113/76 113/76 O2 Sat by Pulse 99 99 100 Oximetry 12/05/19 12/05/19 12/05/19 10:30 11:00 11:31 Temperature Pulse Rate 106 H 108 H 106 H Pulse Rate [ From Monitor] Respiratory 12 12 12 Rate Blood Pressure 123/80 111/74 123/80 O2 Sat by Pulse 100 99 98 Oximetry 12/05/19 12/05/19 12/05/19 12:00 12:09 12:31 Temperature 98.6 F Pulse Rate 106 H 106 H 107 H Pulse Rate [ 109 H From Monitor] Respiratory 12 12 Rate Blood Pressure 113/74 113/74 111/74 O2 Sat by Pulse 100 98 97 Oximetry 12/05/19 12/05/19 12/05/19 13:00 13:31 14:00 Temperature Pulse Rate 105 H 105 H 108 H Pulse Rate [ From Monitor] Respiratory 12 12 12 Rate Blood Pressure 113/76 113/74 117/78 O2 Sat by Pulse 97 98 98 Oximetry 12/05/19 12/05/19 12/05/19 14:31 15:00 15:31 Temperature Pulse Rate 107 H 109 H 108 H Pulse Rate [ From Monitor] Respiratory 13 12 12 Rate Blood Pressure 117/78 111/74 111/74 O2 Sat by Pulse 98 99 99 Oximetry 12/05/19 12/05/19 12/05/19 16:00 16:13 16:31 Temperature 99.0 F Pulse Rate 108 H 112 H 111 H Pulse Rate [ 109 H From Monitor] Respiratory 12 12 Rate Blood Pressure 109/77 109/77 111/74 O2 Sat by Pulse 100 98 98 Oximetry 12/05/19 12/05/19 12/05/19 17:00 17:31 18:00 Temperature Pulse Rate 111 H 110 H 110 H Pulse Rate [ From Monitor] Respiratory 12 12 12 Rate Blood Pressure 116/75 116/75 121/78 O2 Sat by Pulse 99 99 99 Oximetry Constitutional: appears uncomfortable, other (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, orally intuabted ETT at 23 cm at the lip to mVS, mild dys-synchrony) Eyes: non-icteric ENT: oropharynx moist, other (ETT 23 cm AMALIA) Neck: supple, no lymphadenopathy, no JVD Effort: mildly labored Ascultation: Bilateral: diminished breath sounds, rhonchi Percussion: Bilateral: not dull Cardiovascular: regular rate and rhythm (tachycardia), other (S1,S2) Gastrointestinal: normoactive bowel sounds, soft, non-tender, non-distended Integumentary: normal Extremities: no cyanosis, no edema, pulses normal, no ischemia or petechiae Neurologic: unable to assess, other (awake but not tracking voice ) Psychiatric: other (Psychiatric: Unable to assess) CBC and BMP: 12/07/19 03:44 12/07/19 03:44 ABG, PT/INR, D-dimer: ABG ABG pH 7.437 pH Units (7.350-7.450) 12/03/19 20:00 ABG pCO2 50.7 mm Hg 12/03/19 20:00 ABG pO2 68.3 mm Hg (80.0-90.0) L 12/03/19 20:00 ABG O2 Saturation 93.5 % (95.0-99.0) L 12/03/19 20:00 PT/INR, D-dimer PT 17.0 Sec. (12.2-14.9) H 11/23/19 03:47 INR 1.36 (0.87-1.13) H 11/23/19 03:47 Abnormal lab findings: Abnormal Labs 11/22/19 11/22/19 11/22/19 23:17 23:18 23:27 WBC 21.2 H RBC 3.59 L Hgb 9.8 L Hct MCH 27 L RDW 18.6 H Plt Count 454 H Lymph % (Auto) [place] % (Auto) [place] # Seg Neutrophils % Seg Neuts % (Manual) 86.0 H Lymphocytes % (Manual) 9.0 L Seg Neutrophils # Seg Neutrophils # Man 18.2 H Lymphocytes # (Manual) Monocytes # (Manual) 1.1 H PT INR APTT ABG pH ABG pO2 ABG HCO3 ABG O2 Saturation ABG Base Excess ABG Hemoglobin Oxyhemoglobin Sodium Potassium Chloride Carbon Dioxide BUN Creatinine Glucose POC Glucose 53 L Lactic Acid Calcium Ionized Calcium Phosphorus Magnesium Total Bilirubin AST ALT Alkaline Phosphatase Ammonia Total Creatine Kinase CK-MB (CK-2) CK-MB (CK-2) Rel Index Total Protein Albumin Urine WBC (Auto) 40.0 H Salicylates Acetaminophen Plasma/Serum Alcohol 11/22/19 11/22/19 11/22/19 23:27 23:27 23:27 WBC RBC Hgb Hct MCH RDW Plt Count Lymph % (Auto) [place] % (Auto) [place] # Seg Neutrophils % Seg Neuts % (Manual) Lymphocytes % (Manual) Seg Neutrophils # Seg Neutrophils # Man Lymphocytes # (Manual) Monocytes # (Manual) PT INR APTT ABG pH ABG pO2 ABG HCO3 ABG O2 Saturation ABG Base Excess ABG Hemoglobin Oxyhemoglobin Sodium Potassium 2.4 L* Chloride 85.1 L Carbon Dioxide 19 L BUN Creatinine 0.5 L Glucose 261 H POC Glucose Lactic Acid Calcium Ionized Calcium Phosphorus Magnesium Total Bilirubin AST 609 H ALT 152 H Alkaline Phosphatase 160 H Ammonia 117.0 H Total Creatine Kinase 139 H CK-MB (CK-2) 8.3 H CK-MB (CK-2) Rel Index 5.9 H Total Protein Albumin 3.6 L Urine WBC (Auto) Salicylates < 0.3 L Acetaminophen Plasma/Serum Alcohol 11/22/19 11/22/19 11/23/19 23:27 23:27 01:10 WBC RBC Hgb Hct MCH RDW Plt Count Lymph % (Auto) [place] % (Auto) [place] # Seg Neutrophils % Seg Neuts % (Manual) Lymphocytes % (Manual) Seg Neutrophils # Seg Neutrophils # Man Lymphocytes # (Manual) Monocytes # (Manual) PT INR APTT ABG pH 7.273 L ABG pO2 209.7 H ABG HCO3 ABG O2 Saturation 99.2 H ABG Base Excess -3.9 L ABG Hemoglobin 10.6 L Oxyhemoglobin 93.9 L Sodium Potassium Chloride Carbon Dioxide BUN Creatinine Glucose POC Glucose Lactic Acid Calcium Ionized Calcium Phosphorus Magnesium Total Bilirubin AST ALT Alkaline Phosphatase Ammonia Total Creatine Kinase CK-MB (CK-2) CK-MB (CK-2) Rel Index Total Protein Albumin Urine WBC (Auto) Salicylates Acetaminophen < 5.0 L Plasma/Serum Alcohol 0.08 H 11/23/19 11/23/19 11/23/19 01:19 01:19 03:47 WBC RBC Hgb Hct MCH RDW Plt Count Lymph % (Auto) [place] % (Auto) [place] # Seg Neutrophils % Seg Neuts % (Manual) Lymphocytes % (Manual) Seg Neutrophils # Seg Neutrophils # Man Lymphocytes # (Manual) Monocytes # (Manual) PT 16.3 H INR 1.29 H APTT ABG pH ABG pO2 ABG HCO3 ABG O2 Saturation ABG Base Excess ABG Hemoglobin Oxyhemoglobin Sodium Potassium Chloride Carbon Dioxide BUN Creatinine Glucose POC Glucose Lactic Acid 2.10 H* 5.00 H* Calcium Ionized Calcium Phosphorus Magnesium Total Bilirubin AST ALT Alkaline Phosphatase Ammonia Total Creatine Kinase CK-MB (CK-2) CK-MB (CK-2) Rel Index Total Protein Albumin Urine WBC (Auto) Salicylates Acetaminophen Plasma/Serum Alcohol 11/23/19 11/23/19 11/23/19 03:47 03:47 04:53 WBC RBC Hgb 9.4 L Hct MCH RDW Plt Count Lymph % (Auto) [place] % (Auto) [place] # Seg Neutrophils % Seg Neuts % (Manual) Lymphocytes % (Manual) Seg Neutrophils # Seg Neutrophils # Man Lymphocytes # (Manual) Monocytes # (Manual) PT 17.0 H INR 1.36 H APTT 128.2 H* ABG pH ABG pO2 ABG HCO3 ABG O2 Saturation ABG Base Excess ABG Hemoglobin Oxyhemoglobin Sodium Potassium Chloride Carbon Dioxide 18 L BUN Creatinine 0.5 L Glucose 105 H POC Glucose Lactic Acid Calcium 8.3 L Ionized Calcium Phosphorus 2.40 L Magnesium Total Bilirubin 1.30 H AST 761 H ALT 158 H Alkaline Phosphatase 143 H Ammonia Total Creatine Kinase CK-MB (CK-2) CK-MB (CK-2) Rel Index Total Protein Albumin 2.8 L Urine WBC (Auto) Salicylates Acetaminophen Plasma/Serum Alcohol 11/23/19 11/23/19 11/23/19 05:12 06:32 06:32 WBC 16.8 H RBC 3.31 L Hgb 8.9 L Hct 28.7 L MCH 27 L RDW 18.6 H Plt Count Lymph % (Auto) [place] % (Auto) [place] # Seg Neutrophils % Seg Neuts % (Manual) 94.0 H Lymphocytes % (Manual) 1.0 L Seg Neutrophils # Seg Neutrophils # Man 15.8 H Lymphocytes # (Manual) 0.2 L Monocytes # (Manual) PT INR APTT ABG pH ABG pO2 ABG HCO3 ABG O2 Saturation ABG Base Excess -3.2 L ABG Hemoglobin 9.0 L Oxyhemoglobin 93.6 L Sodium Potassium Chloride Carbon Dioxide BUN Creatinine Glucose POC Glucose Lactic Acid Calcium Ionized Calcium 4.5 L Phosphorus Magnesium Total Bilirubin AST ALT Alkaline Phosphatase Ammonia Total Creatine Kinase CK-MB (CK-2) CK-MB (CK-2) Rel Index Total Protein Albumin Urine WBC (Auto) Salicylates Acetaminophen Plasma/Serum Alcohol 11/23/19 11/24/19 11/24/19 06:32 04:35 04:35 WBC RBC Hgb Hct MCH RDW Plt Count Lymph % (Auto) [place] % (Auto) [place] # Seg Neutrophils % Seg Neuts % (Manual) Lymphocytes % (Manual) Seg Neutrophils # Seg Neutrophils # Man Lymphocytes # (Manual) Monocytes # (Manual) PT INR APTT ABG pH ABG pO2 ABG HCO3 ABG O2 Saturation ABG Base Excess ABG Hemoglobin Oxyhemoglobin Sodium Potassium Chloride Carbon Dioxide BUN Creatinine Glucose POC Glucose Lactic Acid 3.30 H* Calcium Ionized Calcium Phosphorus Magnesium 1.40 L Total Bilirubin AST ALT Alkaline Phosphatase Ammonia 98.0 H Total Creatine Kinase CK-MB (CK-2) CK-MB (CK-2) Rel Index Total Protein Albumin Urine WBC (Auto) Salicylates Acetaminophen Plasma/Serum Alcohol 03/07/20 03/08/20 03/08/20 05:22 04:34 05:05 WBC 17.3 H RBC 2.88 L Hgb 7.8 L Hct 24.6 L MCH 27 L RDW 18.5 H Plt Count Lymph % (Auto) 7.7 L [place] % (Auto) 9.7 H [place] # 1.7 H Seg Neutrophils % 82.2 H Seg Neuts % (Manual) Lymphocytes % (Manual) Seg Neutrophils # 14.2 H Seg Neutrophils # Man Lymphocytes # (Manual) Monocytes # (Manual) PT INR APTT ABG pH 7.475 H ABG pO2 ABG HCO3 29.4 H 32.3 H ABG O2 Saturation ABG Base Excess 5.4 H 6.9 H ABG Hemoglobin 9.0 L 10.6 L Oxyhemoglobin 94.3 L Sodium Potassium Chloride Carbon Dioxide BUN Creatinine Glucose POC Glucose Lactic Acid Calcium Ionized Calcium Phosphorus Magnesium Total Bilirubin AST ALT Alkaline Phosphatase Ammonia Total Creatine Kinase CK-MB (CK-2) CK-MB (CK-2) Rel Index Total Protein Albumin Urine WBC (Auto) Salicylates Acetaminophen Plasma/Serum Alcohol 11/25/19 11/25/19 11/26/19 05:05 22:46 03:31 WBC RBC Hgb Hct MCH RDW Plt Count Lymph % (Auto) [place] % (Auto) [place] # Seg Neutrophils % Seg Neuts % (Manual) Lymphocytes % (Manual) Seg Neutrophils # Seg Neutrophils # Man Lymphocytes # (Manual) Monocytes # (Manual) PT INR APTT ABG pH 7.459 H ABG pO2 ABG HCO3 34.2 H ABG O2 Saturation ABG Base Excess 9.4 H ABG Hemoglobin 7.6 L Oxyhemoglobin 94.8 L Sodium 152 H D 147 H Potassium 2.3 L* D 2.8 L* D Chloride 107.8 H Carbon Dioxide 31 H D 33 H BUN Creatinine 0.6 L 0.6 L Glucose 148 H 177 H POC Glucose Lactic Acid Calcium Ionized Calcium Phosphorus Magnesium Total Bilirubin AST 105 H ALT 71 H Alkaline Phosphatase 155 H Ammonia Total Creatine Kinase CK-MB (CK-2) CK-MB (CK-2) Rel Index Total Protein 5.2 L D Albumin 2.9 L Urine WBC (Auto) Salicylates Acetaminophen Plasma/Serum Alcohol 11/26/19 11/26/19 11/27/19 08:24 08:24 04:20 WBC 12.0 H RBC 3.00 L Hgb 8.0 L 9.3 L Hct 25.9 L 29.7 L MCH 27 L RDW 18.5 H Plt Count Lymph % (Auto) [place] % (Auto) [place] # Seg Neutrophils % Seg Neuts % (Manual) 89.0 H Lymphocytes % (Manual) 4.0 L Seg Neutrophils # Seg Neutrophils # Man 10.7 H Lymphocytes # (Manual) 0.5 L Monocytes # (Manual) PT INR APTT ABG pH ABG pO2 ABG HCO3 ABG O2 Saturation ABG Base Excess ABG Hemoglobin Oxyhemoglobin Sodium 146 H Potassium 3.4 L D Chloride Carbon Dioxide BUN Creatinine 0.5 L Glucose 165 H POC Glucose Lactic Acid Calcium Ionized Calcium Phosphorus Magnesium Total Bilirubin AST 57 H ALT Alkaline Phosphatase 166 H Ammonia Total Creatine Kinase CK-MB (CK-2) CK-MB (CK-2) Rel Index Total Protein Albumin 2.9 L Urine WBC (Auto) Salicylates Acetaminophen Plasma/Serum Alcohol 11/27/19 11/27/19 11/27/19 04:28 04:28 04:42 WBC RBC Hgb Hct MCH RDW Plt Count Lymph % (Auto) [place] % (Auto) [place] # Seg Neutrophils % Seg Neuts % (Manual) Lymphocytes % (Manual) Seg Neutrophils # Seg Neutrophils # Man Lymphocytes # (Manual) Monocytes # (Manual) PT INR APTT ABG pH 7.470 H ABG pO2 74.0 L ABG HCO3 33.8 H ABG O2 Saturation ABG Base Excess 9.1 H ABG Hemoglobin 8.7 L Oxyhemoglobin 94.7 L Sodium 146 H Potassium 2.9 L* Chloride Carbon Dioxide BUN 25 H Creatinine Glucose 213 H POC Glucose Lactic Acid Calcium Ionized Calcium Phosphorus 1.00 L Magnesium Total Bilirubin AST ALT Alkaline Phosphatase Ammonia Total Creatine Kinase CK-MB (CK-2) CK-MB (CK-2) Rel Index Total Protein Albumin Urine WBC (Auto) Salicylates Acetaminophen Plasma/Serum Alcohol 11/27/19 11/27/19 11/27/19 05:37 12:20 15:46 WBC RBC Hgb Hct MCH RDW Plt Count Lymph % (Auto) [place] % (Auto) [place] # Seg Neutrophils % Seg Neuts % (Manual) Lymphocytes % (Manual) Seg Neutrophils # Seg Neutrophils # Man Lymphocytes # (Manual) Monocytes # (Manual) PT INR APTT ABG pH ABG pO2 ABG HCO3 ABG O2 Saturation ABG Base Excess ABG Hemoglobin Oxyhemoglobin Sodium 146 H Potassium 3.5 L D Chloride Carbon Dioxide BUN 24 H Creatinine 0.6 L Glucose 187 H POC Glucose 117 H 220 H Lactic Acid Calcium Ionized Calcium Phosphorus Magnesium Total Bilirubin AST ALT Alkaline Phosphatase Ammonia Total Creatine Kinase CK-MB (CK-2) CK-MB (CK-2) Rel Index Total Protein Albumin Urine WBC (Auto) Salicylates Acetaminophen Plasma/Serum Alcohol 11/27/19 11/28/19 11/28/19 17:28 05:00 05:02 WBC RBC Hgb Hct MCH RDW Plt Count Lymph % (Auto) [place] % (Auto) [place] # Seg Neutrophils % Seg Neuts % (Manual) Lymphocytes % (Manual) Seg Neutrophils # Seg Neutrophils # Man Lymphocytes # (Manual) Monocytes # (Manual) PT INR APTT ABG pH ABG pO2 72.4 L ABG HCO3 33.6 H ABG O2 Saturation 94.1 L ABG Base Excess 7.3 H ABG Hemoglobin Oxyhemoglobin 91.8 L Sodium 146 H Potassium 3.3 L Chloride Carbon Dioxide BUN 25 H Creatinine 0.6 L Glucose 176 H POC Glucose 198 H Lactic Acid Calcium Ionized Calcium Phosphorus Magnesium Total Bilirubin AST ALT Alkaline Phosphatase Ammonia Total Creatine Kinase CK-MB (CK-2) CK-MB (CK-2) Rel Index Total Protein Albumin Urine WBC (Auto) Salicylates Acetaminophen Plasma/Serum Alcohol 11/28/19 11/28/19 11/29/19 05:02 18:55 10:43 WBC 15.2 H 19.0 H RBC 3.06 L 3.01 L Hgb 8.3 L 8.3 L Hct 27.0 L 26.4 L MCH 27 L RDW 19.0 H 19.7 H Plt Count 479 H 611 H Lymph % (Auto) [place] % (Auto) [place] # Seg Neutrophils % Seg Neuts % (Manual) 92.0 H Lymphocytes % (Manual) 2.0 L Seg Neutrophils # Seg Neutrophils # Man 14.0 H Lymphocytes # (Manual) 0.3 L Monocytes # (Manual) PT INR APTT ABG pH ABG pO2 ABG HCO3 ABG O2 Saturation ABG Base Excess ABG Hemoglobin Oxyhemoglobin Sodium Potassium Chloride Carbon Dioxide BUN Creatinine Glucose POC Glucose 138 H Lactic Acid Calcium Ionized Calcium Phosphorus Magnesium Total Bilirubin AST ALT Alkaline Phosphatase Ammonia Total Creatine Kinase CK-MB (CK-2) CK-MB (CK-2) Rel Index Total Protein Albumin Urine WBC (Auto) Salicylates Acetaminophen Plasma/Serum Alcohol 11/29/19 11/29/19 11/29/19 10:43 12:27 19:25 WBC RBC Hgb Hct MCH RDW Plt Count Lymph % (Auto) [place] % (Auto) [place] # Seg Neutrophils % Seg Neuts % (Manual) Lymphocytes % (Manual) Seg Neutrophils # Seg Neutrophils # Man Lymphocytes # (Manual) Monocytes # (Manual) PT INR APTT ABG pH ABG pO2 ABG HCO3 ABG O2 Saturation ABG Base Excess ABG Hemoglobin Oxyhemoglobin Sodium Potassium 2.8 L* Chloride Carbon Dioxide BUN 20 H Creatinine 0.5 L Glucose 121 H POC Glucose 128 H 120 H Lactic Acid Calcium Ionized Calcium Phosphorus Magnesium Total Bilirubin AST ALT Alkaline Phosphatase Ammonia Total Creatine Kinase CK-MB (CK-2) CK-MB (CK-2) Rel Index Total Protein Albumin Urine WBC (Auto) Salicylates Acetaminophen Plasma/Serum Alcohol 11/29/19 11/30/19 11/30/19 23:46 04:10 05:02 WBC RBC Hgb Hct MCH RDW Plt Count Lymph % (Auto) [place] % (Auto) [place] # Seg Neutrophils % Seg Neuts % (Manual) Lymphocytes % (Manual) Seg Neutrophils # Seg Neutrophils # Man Lymphocytes # (Manual) Monocytes # (Manual) PT INR APTT ABG pH ABG pO2 76.3 L ABG HCO3 32.5 H ABG O2 Saturation ABG Base Excess 6.9 H ABG Hemoglobin 8.0 L Oxyhemoglobin 92.6 L Sodium Potassium Chloride Carbon Dioxide BUN Creatinine Glucose POC Glucose 116 H 128 H Lactic Acid Calcium Ionized Calcium Phosphorus Magnesium Total Bilirubin AST ALT Alkaline Phosphatase Ammonia Total Creatine Kinase CK-MB (CK-2) CK-MB (CK-2) Rel Index Total Protein Albumin Urine WBC (Auto) Salicylates Acetaminophen Plasma/Serum Alcohol 11/30/19 11/30/19 11/30/19 05:25 05:25 12:59 WBC 18.4 H RBC 3.10 L Hgb 8.5 L Hct 27.5 L MCH 27 L RDW 20.9 H Plt Count 691 H Lymph % (Auto) 7.1 L [place] % (Auto) 7.7 H [place] # 1.4 H Seg Neutrophils % 83.4 H Seg Neuts % (Manual) Lymphocytes % (Manual) Seg Neutrophils # 15.4 H Seg Neutrophils # Man Lymphocytes # (Manual) Monocytes # (Manual) PT INR APTT ABG pH ABG pO2 ABG HCO3 ABG O2 Saturation ABG Base Excess ABG Hemoglobin Oxyhemoglobin Sodium 146 H Potassium Chloride 107.2 H Carbon Dioxide BUN Creatinine 0.5 L Glucose 132 H POC Glucose 124 H Lactic Acid Calcium Ionized Calcium Phosphorus Magnesium Total Bilirubin AST 246 H ALT 274 H Alkaline Phosphatase 203 H Ammonia Total Creatine Kinase CK-MB (CK-2) CK-MB (CK-2) Rel Index Total Protein 5.4 L Albumin 2.9 L Urine WBC (Auto) Salicylates Acetaminophen Plasma/Serum Alcohol 11/30/19 12/01/19 12/01/19 17:53 00:05 05:10 WBC RBC Hgb Hct MCH RDW Plt Count Lymph % (Auto) [place] % (Auto) [place] # Seg Neutrophils % Seg Neuts % (Manual) Lymphocytes % (Manual) Seg Neutrophils # Seg Neutrophils # Man Lymphocytes # (Manual) Monocytes # (Manual) PT INR APTT ABG pH ABG pO2 ABG HCO3 ABG O2 Saturation ABG Base Excess ABG Hemoglobin Oxyhemoglobin Sodium Potassium Chloride Carbon Dioxide BUN Creatinine Glucose POC Glucose 113 H 143 H 145 H Lactic Acid Calcium Ionized Calcium Phosphorus Magnesium Total Bilirubin AST ALT Alkaline Phosphatase Ammonia Total Creatine Kinase CK-MB (CK-2) CK-MB (CK-2) Rel Index Total Protein Albumin Urine WBC (Auto) Salicylates Acetaminophen Plasma/Serum Alcohol 12/01/19 12/01/19 12/01/19 05:33 08:23 08:23 WBC 22.7 H RBC 2.88 L Hgb 7.9 L Hct 25.2 L MCH 27 L RDW 21.0 H Plt Count 732 H Lymph % (Auto) [place] % (Auto) [place] # Seg Neutrophils % Seg Neuts % (Manual) 91.0 H Lymphocytes % (Manual) 3.0 L Seg Neutrophils # Seg Neutrophils # Man 20.7 H Lymphocytes # (Manual) 0.7 L Monocytes # (Manual) 1.1 H PT INR APTT ABG pH ABG pO2 68.6 L ABG HCO3 34.1 H ABG O2 Saturation ABG Base Excess 9.0 H ABG Hemoglobin 6.5 L Oxyhemoglobin 94.7 L Sodium Potassium Chloride Carbon Dioxide BUN Creatinine 0.5 L Glucose 125 H POC Glucose Lactic Acid Calcium Ionized Calcium Phosphorus Magnesium Total Bilirubin AST ALT Alkaline Phosphatase Ammonia Total Creatine Kinase CK-MB (CK-2) CK-MB (CK-2) Rel Index Total Protein Albumin Urine WBC (Auto) Salicylates Acetaminophen Plasma/Serum Alcohol 12/01/19 12/01/19 12/01/19 13:21 17:54 20:59 WBC RBC Hgb Hct MCH RDW Plt Count Lymph % (Auto) [place] % (Auto) [place] # Seg Neutrophils % Seg Neuts % (Manual) Lymphocytes % (Manual) Seg Neutrophils # Seg Neutrophils # Man Lymphocytes # (Manual) Monocytes # (Manual) PT INR APTT ABG pH ABG pO2 78.3 L ABG HCO3 33.8 H ABG O2 Saturation 94.9 L ABG Base Excess 7.9 H ABG Hemoglobin 11.5 L Oxyhemoglobin 92.3 L Sodium Potassium Chloride Carbon Dioxide BUN Creatinine Glucose POC Glucose 111 H 115 H Lactic Acid Calcium Ionized Calcium Phosphorus Magnesium Total Bilirubin AST ALT Alkaline Phosphatase Ammonia Total Creatine Kinase CK-MB (CK-2) CK-MB (CK-2) Rel Index Total Protein Albumin Urine WBC (Auto) Salicylates Acetaminophen Plasma/Serum Alcohol 12/02/19 12/03/19 12/04/19 12:55 20:00 04:26 WBC 15.2 H RBC 2.69 L Hgb 7.4 L Hct 23.6 L MCH 27 L RDW 19.9 H Plt Count 838 H Lymph % (Auto) [place] % (Auto) [place] # Seg Neutrophils % Seg Neuts % (Manual) Lymphocytes % (Manual) Seg Neutrophils # Seg Neutrophils # Man Lymphocytes # (Manual) Monocytes # (Manual) PT INR APTT ABG pH ABG pO2 68.3 L ABG HCO3 33.5 H ABG O2 Saturation 93.5 L ABG Base Excess 8.4 H ABG Hemoglobin 7.3 L Oxyhemoglobin 90.9 L Sodium Potassium Chloride Carbon Dioxide BUN Creatinine Glucose POC Glucose 107 H Lactic Acid Calcium Ionized Calcium Phosphorus Magnesium Total Bilirubin AST ALT Alkaline Phosphatase Ammonia Total Creatine Kinase CK-MB (CK-2) CK-MB (CK-2) Rel Index Total Protein Albumin Urine WBC (Auto) Salicylates Acetaminophen Plasma/Serum Alcohol 12/04/19 12/04/19 12/04/19 04:26 07:45 12:02 WBC 15.9 H RBC 2.88 L Hgb 7.9 L Hct 25.1 L MCH RDW 20.4 H Plt Count 839 H Lymph % (Auto) 11.3 L [place] % (Auto) 15.2 H [place] # 2.4 H Seg Neutrophils % 72.4 H Seg Neuts % (Manual) Lymphocytes % (Manual) Seg Neutrophils # 11.5 H Seg Neutrophils # Man Lymphocytes # (Manual) Monocytes # (Manual) PT INR APTT ABG pH ABG pO2 ABG HCO3 ABG O2 Saturation ABG Base Excess ABG Hemoglobin Oxyhemoglobin Sodium Potassium Chloride 96.5 L Carbon Dioxide BUN 21 H Creatinine 0.6 L Glucose 107 H POC Glucose 138 H Lactic Acid Calcium Ionized Calcium Phosphorus Magnesium Total Bilirubin AST ALT Alkaline Phosphatase Ammonia Total Creatine Kinase CK-MB (CK-2) CK-MB (CK-2) Rel Index Total Protein Albumin Urine WBC (Auto) Salicylates Acetaminophen Plasma/Serum Alcohol 12/04/19 12/05/19 12/05/19 18:16 11:55 18:36 WBC RBC Hgb Hct MCH RDW Plt Count Lymph % (Auto) [place] % (Auto) [place] # Seg Neutrophils % Seg Neuts % (Manual) Lymphocytes % (Manual) Seg Neutrophils # Seg Neutrophils # Man Lymphocytes # (Manual) Monocytes # (Manual) PT INR APTT ABG pH ABG pO2 ABG HCO3 ABG O2 Saturation ABG Base Excess ABG Hemoglobin Oxyhemoglobin Sodium Potassium Chloride Carbon Dioxide BUN Creatinine Glucose POC Glucose 135 H 125 H 135 H Lactic Acid Calcium Ionized Calcium Phosphorus Magnesium Total Bilirubin AST ALT Alkaline Phosphatase Ammonia Total Creatine Kinase CK-MB (CK-2) CK-MB (CK-2) Rel Index Total Protein Albumin Urine WBC (Auto) Salicylates Acetaminophen Plasma/Serum Alcohol Chest x-ray: pending Allied health notes reviewed: nursing
[2019-12-06] MEDS: fentaNYL DRIP Premix 2,000 MCG/100 ML BAG IV SCH ×2 (03:15→20:33)
[2019-12-06 05:25] LABS: Albumin 2.8 g/dL (3.9-5); Calcium 10.1 mg/dL (8.4-10.2)
[2019-12-06 05:37] LABS: Hematocrit TNR % (30.3-42.9); Hemoglobin TNR gm/dl (10.1-14.3); Mean Corpuscular Volume TNR fl (79-97); Red Blood Count TNR M/mm3 (3.65-5.03)
[2019-12-06 05:45] LABS: Mean Corpuscular HGB Conc TNR % (30-34); Mean Platelet Volume TNR fl (6-12); Platelet Count TNR K/mm3 (140-440); Red Cell Distribution Width TNR % (13.2-15.2)
[2019-12-06] MEDS: chlordiazePOXIDE 25 MG CAP PO SCH ×3 (05:49→21:46)
--- NOTE | 2019-12-06 09:11 | Progress Note ---
Assessment and Plan Acute cardiopulmonary arrest with ROSC Acute hypoxemic respiratory failure on MVS Acute [id number] encephalopathy Metabolic acidosis/alcoholic acidosis/Lactic acidosis( resolved) Ischemic hepatitis Leucocytosis - persitent Tobacco use disorder Alcohol use Disorder -Discussed with RT, the need for daily SBTs -Monitro off antibitoics -Persistent leukocytosis but is on steroids, currently weaning -Continue to monitor off antibiotics -Resume chronic home psych medications, then de-escalate Fentanyl patch, Librium and Seroquel to avoid over-sedation -Intermittent diuresis while monitoring renal function,hemodynamics and electrolyte profile -Continue CIWA protocol -Pending tracheosotomy and PEG placement -Continue with MVS, Lung protective strategies, monitor airway pressures -VAP bundle addressed -Continue aspiration precautions, HOB>40 -Continue daily assessment for readiness for SBT -Continue Stress ulcer prophylaxis -Continue enteric nutritional support at goal rate. Monitor glycemic control, with target blood glucose 140-180 mg/dL while critically ill. -Avoid hypoglycemia - Continue to wean supplemental oxygen for target O2 sat's > 90% -ABG and CXR prn -Continue to trend leukocytosis -Continue to treat for hepatic encephalopathy-bowel regimen, no need to trend a mmonia levels -Continue thiamine, multivitamin and electrolyte replacement -Continue to avoid nephrotoxins, adjust all medications for GFR and CrCL - Continue bronchodilators with pulmonary hygiene - Continue prn analgesia per CPOT score - Continue to maintain of sleep-wake cycle, avoid delirium - PT/OT/ROM exercises - Continue mobility protocol and skin assessment per protocol for pressure ulcer prevention - Continue to monitor for clinical seizures - continue other care per attending / other consultants CONDITION: CRITICAL PROGNOSIS: GUARDED CODE STATUS: FULL CODE The high probability of a clinically significant, sudden or life-threatening deterioration of the [respiratory, cardiovascular,GI/hepatology/Neurology] system(s) required my full and direct attention, intervention and personal management. The aggregate critical care time was [31] minutes without overlap. Time includes spent on; [x] Data Review and interpretation [x] Patient assessment and monitoring of vital signs [x] Documentation [x] Medication orders and management Subjective Date of service: 12/06/19 Principal diagnosis: Ac cardiopulmonary arrest; Ac hypoxemic resp failure; Acute encephalopathy Interval history: Patient is seen today for: Acute cardiopulmonary arrest with ROSC; Acute hypoxemic respiratory failure; Acute metabolic-toxic encephalopathy; Ischemic hepatitis; Leucocytosis with lactic acidosis; Tobacco use disorder; Alcohol use Disorder; High grade fevers Seen and examined at bedside; 24hour events reviewed; nursing and respiratory care staff consulted; no adverse overnight events reported to me; resting peacefully in bed; no fevers, remains orally intubated and on MVS. Apears to be a little more awake, not obeying commands. She was on chronic home psych medications- Vistoril, Remeron and Zoloft, Tolerating tube feedings Objective Vital Signs - 12hr 12/05/19 12/05/19 12/05/19 21:31 22:00 22:16 Temperature Pulse Rate 108 H 108 H 110 H Pulse Rate [ From Monitor] Respiratory 12 12 12 Rate Blood Pressure 119/76 125/84 125/84 O2 Sat by Pulse 99 100 99 Oximetry 12/05/19 12/05/19 12/05/19 22:31 23:00 23:31 Temperature Pulse Rate 113 H 114 H 113 H Pulse Rate [ From Monitor] Respiratory 12 12 12 Rate Blood Pressure 125/84 104/61 104/61 O2 Sat by Pulse 99 99 98 Oximetry 12/06/19 12/06/19 12/06/19 00:00 00:29 00:31 Temperature 98.6 F Pulse Rate 111 H 110 H 110 H Pulse Rate [ 111 H From Monitor] Respiratory 12 12 Rate Blood Pressure 111/72 111/72 111/72 O2 Sat by Pulse 99 100 100 Oximetry 12/06/19 12/06/19 12/06/19 01:00 01:31 02:00 Temperature Pulse Rate 108 H 107 H 106 H Pulse Rate [ From Monitor] Respiratory 12 12 12 Rate Blood Pressure 113/76 113/76 118/76 O2 Sat by Pulse 99 100 100 Oximetry 12/06/19 12/06/19 12/06/19 02:31 03:00 03:31 Temperature Pulse Rate 107 H 107 H 108 H Pulse Rate [ From Monitor] Respiratory 12 12 12 Rate Blood Pressure 118/76 127/85 127/85 O2 Sat by Pulse 100 100 100 Oximetry 12/06/19 12/06/19 12/06/19 03:51 04:00 04:31 Temperature 98.7 F Pulse Rate 107 H 107 H Pulse Rate [ 107 H From Monitor] Respiratory 12 12 Rate Blood Pressure 128/83 127/85 O2 Sat by Pulse 100 100 Oximetry 03/12/06/19 12/06/19 04:53 05:00 05:31 Temperature Pulse Rate 108 H 108 H 109 H Pulse Rate [ From Monitor] Respiratory 12 12 Rate Blood Pressure 128/83 120/80 120/80 O2 Sat by Pulse 99 98 98 Oximetry 12/06/19 12/06/19 12/06/19 06:00 06:31 07:00 Temperature Pulse Rate 110 H 111 H 113 H Pulse Rate [ From Monitor] Respiratory 12 12 12 Rate Blood Pressure 124/82 124/82 120/80 O2 Sat by Pulse 99 97 97 Oximetry 12/06/19 12/06/19 12/06/19 07:16 07:31 08:00 Temperature 100.3 F H Pulse Rate 113 H 112 H 112 H Pulse Rate [ From Monitor] Respiratory 12 13 Rate Blood Pressure 120/80 120/80 128/82 O2 Sat by Pulse 97 97 97 Oximetry 12/06/19 12/06/19 08:31 09:00 Temperature Pulse Rate 113 H 112 H Pulse Rate [ From Monitor] Respiratory 12 12 Rate Blood Pressure 128/82 120/78 O2 Sat by Pulse 97 97 Oximetry Constitutional: no acute distress, other (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, orally intuabted ETT at 23 cm at the lip to mVS, no dys-synchrony) Eyes: non-icteric ENT: oropharynx moist, other (ETT 23 cm AMALIA) Neck: supple, no lymphadenopathy, no JVD Effort: normal Ascultation: Bilateral: diminished breath sounds, rhonchi Percussion: Bilateral: not dull Cardiovascular: regular rate and rhythm (tachycardia), other (S1,S2) Gastrointestinal: normoactive bowel sounds, soft, non-tender, non-distended Integumentary: normal Extremities: no cyanosis, no edema, pulses normal, no ischemia or petechiae Neurologic: unable to assess, other (awake but not tracking voice ) Psychiatric: other (Psychiatric: Unable to assess) CBC and BMP: 12/07/19 03:44 12/07/19 03:44 ABG, PT/INR, D-dimer: ABG ABG pH 7.437 pH Units (7.350-7.450) 12/03/19 20:00 ABG pCO2 50.7 mm Hg 12/03/19 20:00 ABG pO2 68.3 mm Hg (80.0-90.0) L 12/03/19 20:00 ABG O2 Saturation 93.5 % (95.0-99.0) L 12/03/19 20:00 PT/INR, D-dimer PT 17.0 Sec. (12.2-14.9) H 11/23/19 03:47 INR 1.36 (0.87-1.13) H 11/23/19 03:47 Abnormal lab findings: Abnormal Labs 11/22/19 11/22/19 11/22/19 23:17 23:18 23:27 WBC 21.2 H RBC 3.59 L Hgb 9.8 L Hct MCH 27 L RDW 18.6 H Plt Count 454 H Lymph % (Auto) [place] % (Auto) [place] # Seg Neutrophils % Seg Neuts % (Manual) 86.0 H Lymphocytes % (Manual) 9.0 L Seg Neutrophils # Seg Neutrophils # Man 18.2 H Lymphocytes # (Manual) Monocytes # (Manual) 1.1 H PT INR APTT ABG pH ABG pO2 ABG HCO3 ABG O2 Saturation ABG Base Excess ABG Hemoglobin Oxyhemoglobin Sodium Potassium Chloride Carbon Dioxide BUN Creatinine Glucose POC Glucose 53 L Lactic Acid Calcium Ionized Calcium Phosphorus Magnesium Total Bilirubin AST ALT Alkaline Phosphatase Ammonia Total Creatine Kinase CK-MB (CK-2) CK-MB (CK-2) Rel Index Total Protein Albumin Urine WBC (Auto) 40.0 H Salicylates Acetaminophen Plasma/Serum Alcohol 11/22/19 11/22/19 11/22/19 23:27 23:27 23:27 WBC RBC Hgb Hct MCH RDW Plt Count Lymph % (Auto) [place] % (Auto) [place] # Seg Neutrophils % Seg Neuts % (Manual) Lymphocytes % (Manual) Seg Neutrophils # Seg Neutrophils # Man Lymphocytes # (Manual) Monocytes # (Manual) PT INR APTT ABG pH ABG pO2 ABG HCO3 ABG O2 Saturation ABG Base Excess ABG Hemoglobin Oxyhemoglobin Sodium Potassium 2.4 L* Chloride 85.1 L Carbon Dioxide 19 L BUN Creatinine 0.5 L Glucose 261 H POC Glucose Lactic Acid Calcium Ionized Calcium Phosphorus Magnesium Total Bilirubin AST 609 H ALT 152 H Alkaline Phosphatase 160 H Ammonia 117.0 H Total Creatine Kinase 139 H CK-MB (CK-2) 8.3 H CK-MB (CK-2) Rel Index 5.9 H Total Protein Albumin 3.6 L Urine WBC (Auto) Salicylates < 0.3 L Acetaminophen Plasma/Serum Alcohol 11/22/19 11/22/19 11/23/19 23:27 23:27 01:10 WBC RBC Hgb Hct MCH RDW Plt Count Lymph % (Auto) [place] % (Auto) [place] # Seg Neutrophils % Seg Neuts % (Manual) Lymphocytes % (Manual) Seg Neutrophils # Seg Neutrophils # Man Lymphocytes # (Manual) Monocytes # (Manual) PT INR APTT ABG pH 7.273 L ABG pO2 209.7 H ABG HCO3 ABG O2 Saturation 99.2 H ABG Base Excess -3.9 L ABG Hemoglobin 10.6 L Oxyhemoglobin 93.9 L Sodium Potassium Chloride Carbon Dioxide BUN Creatinine Glucose POC Glucose Lactic Acid Calcium Ionized Calcium Phosphorus Magnesium Total Bilirubin AST ALT Alkaline Phosphatase Ammonia Total Creatine Kinase CK-MB (CK-2) CK-MB (CK-2) Rel Index Total Protein Albumin Urine WBC (Auto) Salicylates Acetaminophen < 5.0 L Plasma/Serum Alcohol 0.08 H 11/23/19 11/23/19 11/23/19 01:19 01:19 03:47 WBC RBC Hgb Hct MCH RDW Plt Count Lymph % (Auto) [place] % (Auto) [place] # Seg Neutrophils % Seg Neuts % (Manual) Lymphocytes % (Manual) Seg Neutrophils # Seg Neutrophils # Man Lymphocytes # (Manual) Monocytes # (Manual) PT 16.3 H INR 1.29 H APTT ABG pH ABG pO2 ABG HCO3 ABG O2 Saturation ABG Base Excess ABG Hemoglobin Oxyhemoglobin Sodium Potassium Chloride Carbon Dioxide BUN Creatinine Glucose POC Glucose Lactic Acid 2.10 H* 5.00 H* Calcium Ionized Calcium Phosphorus Magnesium Total Bilirubin AST ALT Alkaline Phosphatase Ammonia Total Creatine Kinase CK-MB (CK-2) CK-MB (CK-2) Rel Index Total Protein Albumin Urine WBC (Auto) Salicylates Acetaminophen Plasma/Serum Alcohol 11/23/19 11/23/19 11/23/19 03:47 03:47 04:53 WBC RBC Hgb 9.4 L Hct MCH RDW Plt Count Lymph % (Auto) [place] % (Auto) [place] # Seg Neutrophils % Seg Neuts % (Manual) Lymphocytes % (Manual) Seg Neutrophils # Seg Neutrophils # Man Lymphocytes # (Manual) Monocytes # (Manual) PT 17.0 H INR 1.36 H APTT 128.2 H* ABG pH ABG pO2 ABG HCO3 ABG O2 Saturation ABG Base Excess ABG Hemoglobin Oxyhemoglobin Sodium Potassium Chloride Carbon Dioxide 18 L BUN Creatinine 0.5 L Glucose 105 H POC Glucose Lactic Acid Calcium 8.3 L Ionized Calcium Phosphorus 2.40 L Magnesium Total Bilirubin 1.30 H AST 761 H ALT 158 H Alkaline Phosphatase 143 H Ammonia Total Creatine Kinase CK-MB (CK-2) CK-MB (CK-2) Rel Index Total Protein Albumin 2.8 L Urine WBC (Auto) Salicylates Acetaminophen Plasma/Serum Alcohol 11/23/19 11/23/19 11/23/19 05:12 06:32 06:32 WBC 16.8 H RBC 3.31 L Hgb 8.9 L Hct 28.7 L MCH 27 L RDW 18.6 H Plt Count Lymph % (Auto) [place] % (Auto) [place] # Seg Neutrophils % Seg Neuts % (Manual) 94.0 H Lymphocytes % (Manual) 1.0 L Seg Neutrophils # Seg Neutrophils # Man 15.8 H Lymphocytes # (Manual) 0.2 L Monocytes # (Manual) PT INR APTT ABG pH ABG pO2 ABG HCO3 ABG O2 Saturation ABG Base Excess -3.2 L ABG Hemoglobin 9.0 L Oxyhemoglobin 93.6 L Sodium Potassium Chloride Carbon Dioxide BUN Creatinine Glucose POC Glucose Lactic Acid Calcium Ionized Calcium 4.5 L Phosphorus Magnesium Total Bilirubin AST ALT Alkaline Phosphatase Ammonia Total Creatine Kinase CK-MB (CK-2) CK-MB (CK-2) Rel Index Total Protein Albumin Urine WBC (Auto) Salicylates Acetaminophen Plasma/Serum Alcohol 11/23/19 11/24/19 11/24/19 06:32 04:35 04:35 WBC RBC Hgb Hct MCH RDW Plt Count Lymph % (Auto) [place] % (Auto) [place] # Seg Neutrophils % Seg Neuts % (Manual) Lymphocytes % (Manual) Seg Neutrophils # Seg Neutrophils # Man Lymphocytes # (Manual) Monocytes # (Manual) PT INR APTT ABG pH ABG pO2 ABG HCO3 ABG O2 Saturation ABG Base Excess ABG Hemoglobin Oxyhemoglobin Sodium Potassium Chloride Carbon Dioxide BUN Creatinine Glucose POC Glucose Lactic Acid 3.30 H* Calcium Ionized Calcium Phosphorus Magnesium 1.40 L Total Bilirubin AST ALT Alkaline Phosphatase Ammonia 98.0 H Total Creatine Kinase CK-MB (CK-2) CK-MB (CK-2) Rel Index Total Protein Albumin Urine WBC (Auto) Salicylates Acetaminophen Plasma/Serum Alcohol 11/24/19 11/25/19 11/25/19 05:22 04:34 05:05 WBC 17.3 H RBC 2.88 L Hgb 7.8 L Hct 24.6 L MCH 27 L RDW 18.5 H Plt Count Lymph % (Auto) 7.7 L [place] % (Auto) 9.7 H Imperial # 1.7 H Seg Neutrophils % 82.2 H Seg Neuts % (Manual) Lymphocytes % (Manual) Seg Neutrophils # 14.2 H Seg Neutrophils # Man Lymphocytes # (Manual) Monocytes # (Manual) PT INR APTT ABG pH 7.475 H ABG pO2 ABG HCO3 29.4 H 32.3 H ABG O2 Saturation ABG Base Excess 5.4 H 6.9 H ABG Hemoglobin 9.0 L 10.6 L Oxyhemoglobin 94.3 L Sodium Potassium Chloride Carbon Dioxide BUN Creatinine Glucose POC Glucose Lactic Acid Calcium Ionized Calcium Phosphorus Magnesium Total Bilirubin AST ALT Alkaline Phosphatase Ammonia Total Creatine Kinase CK-MB (CK-2) CK-MB (CK-2) Rel Index Total Protein Albumin Urine WBC (Auto) Salicylates Acetaminophen Plasma/Serum Alcohol 11/25/19 11/25/19 11/26/19 05:05 22:46 03:31 WBC RBC Hgb Hct MCH RDW Plt Count Lymph % (Auto) [place] % (Auto) [place] # Seg Neutrophils % Seg Neuts % (Manual) Lymphocytes % (Manual) Seg Neutrophils # Seg Neutrophils # Man Lymphocytes # (Manual) Monocytes # (Manual) PT INR APTT ABG pH 7.459 H ABG pO2 ABG HCO3 34.2 H ABG O2 Saturation ABG Base Excess 9.4 H ABG Hemoglobin 7.6 L Oxyhemoglobin 94.8 L Sodium 152 H D 147 H Potassium 2.3 L* D 2.8 L* D Chloride 107.8 H Carbon Dioxide 31 H D 33 H BUN Creatinine 0.6 L 0.6 L Glucose 148 H 177 H POC Glucose Lactic Acid Calcium Ionized Calcium Phosphorus Magnesium Total Bilirubin AST 105 H ALT 71 H Alkaline Phosphatase 155 H Ammonia Total Creatine Kinase CK-MB (CK-2) CK-MB (CK-2) Rel Index Total Protein 5.2 L D Albumin 2.9 L Urine WBC (Auto) Salicylates Acetaminophen Plasma/Serum Alcohol 11/26/19 11/26/1911/26/20 08:24 08:24 04:20 WBC 12.0 H RBC 3.00 L Hgb 8.0 L 9.3 L Hct 25.9 L 29.7 L MCH 27 L RDW 18.5 H Plt Count Lymph % (Auto) [place] % (Auto) [place] # Seg Neutrophils % Seg Neuts % (Manual) 89.0 H Lymphocytes % (Manual) 4.0 L Seg Neutrophils # Seg Neutrophils # Man 10.7 H Lymphocytes # (Manual) 0.5 L Monocytes # (Manual) PT INR APTT ABG pH ABG pO2 ABG HCO3 ABG O2 Saturation ABG Base Excess ABG Hemoglobin Oxyhemoglobin Sodium 146 H Potassium 3.4 L D Chloride Carbon Dioxide BUN Creatinine 0.5 L Glucose 165 H POC Glucose Lactic Acid Calcium Ionized Calcium Phosphorus Magnesium Total Bilirubin AST 57 H ALT Alkaline Phosphatase 166 H Ammonia Total Creatine Kinase CK-MB (CK-2) CK-MB (CK-2) Rel Index Total Protein Albumin 2.9 L Urine WBC (Auto) Salicylates Acetaminophen Plasma/Serum Alcohol 11/27/19 11/27/19 11/27/19 04:28 04:28 04:42 WBC RBC Hgb Hct MCH RDW Plt Count Lymph % (Auto) [place] % (Auto) [place] # Seg Neutrophils % Seg Neuts % (Manual) Lymphocytes % (Manual) Seg Neutrophils # Seg Neutrophils # Man Lymphocytes # (Manual) Monocytes # (Manual) PT INR APTT ABG pH 7.470 H ABG pO2 74.0 L ABG HCO3 33.8 H ABG O2 Saturation ABG Base Excess 9.1 H ABG Hemoglobin 8.7 L Oxyhemoglobin 94.7 L Sodium 146 H Potassium 2.9 L* Chloride Carbon Dioxide BUN 25 H Creatinine Glucose 213 H POC Glucose Lactic Acid Calcium Ionized Calcium Phosphorus 1.00 L Magnesium Total Bilirubin AST ALT Alkaline Phosphatase Ammonia Total Creatine Kinase CK-MB (CK-2) CK-MB (CK-2) Rel Index Total Protein Albumin Urine WBC (Auto) Salicylates Acetaminophen Plasma/Serum Alcohol 11/27/19 11/27/19 11/27/19 05:37 12:20 15:46 WBC RBC Hgb Hct MCH RDW Plt Count Lymph % (Auto) [place] % (Auto) [place] # Seg Neutrophils % Seg Neuts % (Manual) Lymphocytes % (Manual) Seg Neutrophils # Seg Neutrophils # Man Lymphocytes # (Manual) Monocytes # (Manual) PT INR APTT ABG pH ABG pO2 ABG HCO3 ABG O2 Saturation ABG Base Excess ABG Hemoglobin Oxyhemoglobin Sodium 146 H Potassium 3.5 L D Chloride Carbon Dioxide BUN 24 H Creatinine 0.6 L Glucose 187 H POC Glucose 117 H 220 H Lactic Acid Calcium Ionized Calcium Phosphorus Magnesium Total Bilirubin AST ALT Alkaline Phosphatase Ammonia Total Creatine Kinase CK-MB (CK-2) CK-MB (CK-2) Rel Index Total Protein Albumin Urine WBC (Auto) Salicylates Acetaminophen Plasma/Serum Alcohol 11/27/19 11/28/19 11/28/19 17:28 05:00 05:02 WBC RBC Hgb Hct MCH RDW Plt Count Lymph % (Auto) [place] % (Auto) [place] # Seg Neutrophils % Seg Neuts % (Manual) Lymphocytes % (Manual) Seg Neutrophils # Seg Neutrophils # Man Lymphocytes # (Manual) Monocytes # (Manual) PT INR APTT ABG pH ABG pO2 72.4 L ABG HCO3 33.6 H ABG O2 Saturation 94.1 L ABG Base Excess 7.3 H ABG Hemoglobin Oxyhemoglobin 91.8 L Sodium 146 H Potassium 3.3 L Chloride Carbon Dioxide BUN 25 H Creatinine 0.6 L Glucose 176 H POC Glucose 198 H Lactic Acid Calcium Ionized Calcium Phosphorus Magnesium Total Bilirubin AST ALT Alkaline Phosphatase Ammonia Total Creatine Kinase CK-MB (CK-2) CK-MB (CK-2) Rel Index Total Protein Albumin Urine WBC (Auto) Salicylates Acetaminophen Plasma/Serum Alcohol 11/28/19 11/28/19 11/29/19 05:02 18:55 10:43 WBC 15.2 H 19.0 H RBC 3.06 L 3.01 L Hgb 8.3 L 8.3 L Hct 27.0 L 26.4 L MCH 27 L RDW 19.0 H 19.7 H Plt Count 479 H 611 H Lymph % (Auto) [place] % (Auto) [place] # Seg Neutrophils % Seg Neuts % (Manual) 92.0 H Lymphocytes % (Manual) 2.0 L Seg Neutrophils # Seg Neutrophils # Man 14.0 H Lymphocytes # (Manual) 0.3 L Monocytes # (Manual) PT INR APTT ABG pH ABG pO2 ABG HCO3 ABG O2 Saturation ABG Base Excess ABG Hemoglobin Oxyhemoglobin Sodium Potassium Chloride Carbon Dioxide BUN Creatinine Glucose POC Glucose 138 H Lactic Acid Calcium Ionized Calcium Phosphorus Magnesium Total Bilirubin AST ALT Alkaline Phosphatase Ammonia Total Creatine Kinase CK-MB (CK-2) CK-MB (CK-2) Rel Index Total Protein Albumin Urine WBC (Auto) Salicylates Acetaminophen Plasma/Serum Alcohol 11/29/19 11/29/19 11/29/19 10:43 12:27 19:25 WBC RBC Hgb Hct MCH RDW Plt Count Lymph % (Auto) [place] % (Auto) [place] # Seg Neutrophils % Seg Neuts % (Manual) Lymphocytes % (Manual) Seg Neutrophils # Seg Neutrophils # Man Lymphocytes # (Manual) Monocytes # (Manual) PT INR APTT ABG pH ABG pO2 ABG HCO3 ABG O2 Saturation ABG Base Excess ABG Hemoglobin Oxyhemoglobin Sodium Potassium 2.8 L* Chloride Carbon Dioxide BUN 20 H Creatinine 0.5 L Glucose 121 H POC Glucose 128 H 120 H Lactic Acid Calcium Ionized Calcium Phosphorus Magnesium Total Bilirubin AST ALT Alkaline Phosphatase Ammonia Total Creatine Kinase CK-MB (CK-2) CK-MB (CK-2) Rel Index Total Protein Albumin Urine WBC (Auto) Salicylates Acetaminophen Plasma/Serum Alcohol 11/29/19 11/30/19 11/30/19 23:46 04:10 05:02 WBC RBC Hgb Hct MCH RDW Plt Count Lymph % (Auto) [place] % (Auto) [place] # Seg Neutrophils % Seg Neuts % (Manual) Lymphocytes % (Manual) Seg Neutrophils # Seg Neutrophils # Man Lymphocytes # (Manual) Monocytes # (Manual) PT INR APTT ABG pH ABG pO2 76.3 L ABG HCO3 32.5 H ABG O2 Saturation ABG Base Excess 6.9 H ABG Hemoglobin 8.0 L Oxyhemoglobin 92.6 L Sodium Potassium Chloride Carbon Dioxide BUN Creatinine Glucose POC Glucose 116 H 128 H Lactic Acid Calcium Ionized Calcium Phosphorus Magnesium Total Bilirubin AST ALT Alkaline Phosphatase Ammonia Total Creatine Kinase CK-MB (CK-2) CK-MB (CK-2) Rel Index Total Protein Albumin Urine WBC (Auto) Salicylates Acetaminophen Plasma/Serum Alcohol 11/30/19 11/30/19 11/30/19 05:25 05:25 12:59 WBC 18.4 H RBC 3.10 L Hgb 8.5 L Hct 27.5 L MCH 27 L RDW 20.9 H Plt Count 691 H Lymph % (Auto) 7.1 L [place] % (Auto) 7.7 H [place] # 1.4 H Seg Neutrophils % 83.4 H Seg Neuts % (Manual) Lymphocytes % (Manual) Seg Neutrophils # 15.4 H Seg Neutrophils # Man Lymphocytes # (Manual) Monocytes # (Manual) PT INR APTT ABG pH ABG pO2 ABG HCO3 ABG O2 Saturation ABG Base Excess ABG Hemoglobin Oxyhemoglobin Sodium 146 H Potassium Chloride 107.2 H Carbon Dioxide BUN Creatinine 0.5 L Glucose 132 H POC Glucose 124 H Lactic Acid Calcium Ionized Calcium Phosphorus Magnesium Total Bilirubin AST 246 H ALT 274 H Alkaline Phosphatase 203 H Ammonia Total Creatine Kinase CK-MB (CK-2) CK-MB (CK-2) Rel Index Total Protein 5.4 L Albumin 2.9 L Urine WBC (Auto) Salicylates Acetaminophen Plasma/Serum Alcohol 11/30/19 12/01/19 12/01/19 17:53 00:05 05:10 WBC RBC Hgb Hct MCH RDW Plt Count Lymph % (Auto) [place] % (Auto) [place] # Seg Neutrophils % Seg Neuts % (Manual) Lymphocytes % (Manual) Seg Neutrophils # Seg Neutrophils # Man Lymphocytes # (Manual) Monocytes # (Manual) PT INR APTT ABG pH ABG pO2 ABG HCO3 ABG O2 Saturation ABG Base Excess ABG Hemoglobin Oxyhemoglobin Sodium Potassium Chloride Carbon Dioxide BUN Creatinine Glucose POC Glucose 113 H 143 H 145 H Lactic Acid Calcium Ionized Calcium Phosphorus Magnesium Total Bilirubin AST ALT Alkaline Phosphatase Ammonia Total Creatine Kinase CK-MB (CK-2) CK-MB (CK-2) Rel Index Total Protein Albumin Urine WBC (Auto) Salicylates Acetaminophen Plasma/Serum Alcohol 12/01/19 12/01/19 12/01/19 05:33 08:23 08:23 WBC 22.7 H RBC 2.88 L Hgb 7.9 L Hct 25.2 L MCH 27 L RDW 21.0 H Plt Count 732 H Lymph % (Auto) [place] % (Auto) [place] # Seg Neutrophils % Seg Neuts % (Manual) 91.0 H Lymphocytes % (Manual) 3.0 L Seg Neutrophils # Seg Neutrophils # Man 20.7 H Lymphocytes # (Manual) 0.7 L Monocytes # (Manual) 1.1 H PT INR APTT ABG pH ABG pO2 68.6 L ABG HCO3 34.1 H ABG O2 Saturation ABG Base Excess 9.0 H ABG Hemoglobin 6.5 L Oxyhemoglobin 94.7 L Sodium Potassium Chloride Carbon Dioxide BUN Creatinine 0.5 L Glucose 125 H POC Glucose Lactic Acid Calcium Ionized Calcium Phosphorus Magnesium Total Bilirubin AST ALT Alkaline Phosphatase Ammonia Total Creatine Kinase CK-MB (CK-2) CK-MB (CK-2) Rel Index Total Protein Albumin Urine WBC (Auto) Salicylates Acetaminophen Plasma/Serum Alcohol 12/01/19 12/01/19 12/01/19 13:21 17:54 20:59 WBC RBC Hgb Hct MCH RDW Plt Count Lymph % (Auto) [place] % (Auto) [place] # Seg Neutrophils % Seg Neuts % (Manual) Lymphocytes % (Manual) Seg Neutrophils # Seg Neutrophils # Man Lymphocytes # (Manual) Monocytes # (Manual) PT INR APTT ABG pH ABG pO2 78.3 L ABG HCO3 33.8 H ABG O2 Saturation 94.9 L ABG Base Excess 7.9 H ABG Hemoglobin 11.5 L Oxyhemoglobin 92.3 L Sodium Potassium Chloride Carbon Dioxide BUN Creatinine Glucose POC Glucose 111 H 115 H Lactic Acid Calcium Ionized Calcium Phosphorus Magnesium Total Bilirubin AST ALT Alkaline Phosphatase Ammonia Total Creatine Kinase CK-MB (CK-2) CK-MB (CK-2) Rel Index Total Protein Albumin Urine WBC (Auto) Salicylates Acetaminophen Plasma/Serum Alcohol 12/02/19 12/03/19 12/04/19 12:55 20:00 04:26 WBC 15.2 H RBC 2.69 L Hgb 7.4 L Hct 23.6 L MCH 27 L RDW 19.9 H Plt Count 838 H Lymph % (Auto) [place] % (Auto) [place] # Seg Neutrophils % Seg Neuts % (Manual) Lymphocytes % (Manual) Seg Neutrophils # Seg Neutrophils # Man Lymphocytes # (Manual) Monocytes # (Manual) PT INR APTT ABG pH ABG pO2 68.3 L ABG HCO3 33.5 H ABG O2 Saturation 93.5 L ABG Base Excess 8.4 H ABG Hemoglobin 7.3 L Oxyhemoglobin 90.9 L Sodium Potassium Chloride Carbon Dioxide BUN Creatinine Glucose POC Glucose 107 H Lactic Acid Calcium Ionized Calcium Phosphorus Magnesium Total Bilirubin AST ALT Alkaline Phosphatase Ammonia Total Creatine Kinase CK-MB (CK-2) CK-MB (CK-2) Rel Index Total Protein Albumin Urine WBC (Auto) Salicylates Acetaminophen Plasma/Serum Alcohol 03/17/20 03/17/20 03/17/20 04:26 07:45 12:02 WBC 15.9 H RBC 2.88 L Hgb 7.9 L Hct 25.1 L MCH RDW 20.4 H Plt Count 839 H Lymph % (Auto) 11.3 L [place] % (Auto) 15.2 H [place] # 2.4 H Seg Neutrophils % 72.4 H Seg Neuts % (Manual) Lymphocytes % (Manual) Seg Neutrophils # 11.5 H Seg Neutrophils # Man Lymphocytes # (Manual) Monocytes # (Manual) PT INR APTT ABG pH ABG pO2 ABG HCO3 ABG O2 Saturation ABG Base Excess ABG Hemoglobin Oxyhemoglobin Sodium Potassium Chloride 96.5 L Carbon Dioxide BUN 21 H Creatinine 0.6 L Glucose 107 H POC Glucose 138 H Lactic Acid Calcium Ionized Calcium Phosphorus Magnesium Total Bilirubin AST ALT Alkaline Phosphatase Ammonia Total Creatine Kinase CK-MB (CK-2) CK-MB (CK-2) Rel Index Total Protein Albumin Urine WBC (Auto) Salicylates Acetaminophen Plasma/Serum Alcohol 12/04/19 12/05/19 12/05/19 18:16 11:55 18:36 WBC RBC Hgb Hct MCH RDW Plt Count Lymph % (Auto) [place] % (Auto) [place] # Seg Neutrophils % Seg Neuts % (Manual) Lymphocytes % (Manual) Seg Neutrophils # Seg Neutrophils # Man Lymphocytes # (Manual) Monocytes # (Manual) PT INR APTT ABG pH ABG pO2 ABG HCO3 ABG O2 Saturation ABG Base Excess ABG Hemoglobin Oxyhemoglobin Sodium Potassium Chloride Carbon Dioxide BUN Creatinine Glucose POC Glucose 135 H 125 H 135 H Lactic Acid Calcium Ionized Calcium Phosphorus Magnesium Total Bilirubin AST ALT Alkaline Phosphatase Ammonia Total Creatine Kinase CK-MB (CK-2) CK-MB (CK-2) Rel Index Total Protein Albumin Urine WBC (Auto) Salicylates Acetaminophen Plasma/Serum Alcohol 12/05/19 12/06/19 12/06/19 23:30 04:14 05:43 WBC RBC Hgb Hct MCH RDW Plt Count Lymph % (Auto) Imperial % (Auto) Imperial # Seg Neutrophils % Seg Neuts % (Manual) Lymphocytes % (Manual) Seg Neutrophils # Seg Neutrophils # Man Lymphocytes # (Manual) Monocytes # (Manual) PT INR APTT ABG pH ABG pO2 ABG HCO3 ABG O2 Saturation ABG Base Excess ABG Hemoglobin Oxyhemoglobin Sodium Potassium 5.6 H Chloride 95.0 L Carbon Dioxide BUN 48 H Creatinine 1.3 H D Glucose POC Glucose 126 H 121 H Lactic Acid Calcium Ionized Calcium Phosphorus Magnesium Total Bilirubin AST 89 H ALT 98 H Alkaline Phosphatase 476 H Ammonia Total Creatine Kinase CK-MB (CK-2) CK-MB (CK-2) Rel Index Total Protein Albumin 2.8 L Urine WBC (Auto) Salicylates Acetaminophen Plasma/Serum Alcohol Allied health notes reviewed: RT
[2019-12-06] MEDS: LANSOPRAZOLE 30 MG SOLUTAB FEEDTUBE SCH (09:52)
[2019-12-06] MEDS: levETIRAcetam 500 MG/5 ML ORAL LIQD PO SCH ×2 (09:52→21:45)
[2019-12-06] MEDS: QUEtiapine 100 MG TAB PO SCH ×2 (09:52→21:46)
[2019-12-06] MEDS: HEPARIN 5,000 UNIT/1 ML VIAL SUB-Q SCH ×2 (09:52→21:46)
[2019-12-06] MEDS ORDERED: SODIUM POLYSTYRENE 15 GM/60 ML ORAL LIQD PO ONE (10:00)
[2019-12-06] MEDS: hydrOXYzine PAMOATE 25 MG CAP PO SCH ×2 (11:06→21:45)
[2019-12-06] MEDS: SERTRALINE 25 MG TAB PO SCH (11:06)
[2019-12-06] MEDS: MIRTAZAPINE 30 MG TAB PO SCH (11:07)
[2019-12-06 11:13] LABS: Hematocrit 22.7 % (30.3-42.9); Hemoglobin 7.1 gm/dl (10.1-14.3); Mean Corpuscular HGB Conc 31 % (30-34); Mean Corpuscular Volume 87 fl (79-97); Platelet Count 832 K/mm3 (140-440)
[2019-12-06 11:14] LABS: Red Cell Distribution Width 20.1 % (13.2-15.2)
[2019-12-06] MEDS: ACETAMINOPHEN 325 MG/10.15 ML ORAL LIQD UNIT DOSE FEEDTUBE PRN (11:22)
--- NOTE | 2019-12-06 15:01 | Consultation ---
History of Present Illness Consult date: 12/06/19 Chief complaint: vent dependence - History of present illness History of present illness: 54-year-old female who presented to the hospital on 11/22/2019 s/p cardiac arrest at home. The patient is currently on a ventilator and has not been able to be weaned due to apneic episodes on CPAP mode. The patient cannot provide a histor y and all history is obtained from the chart and the patient's daughter over the telephone. Per the patient's daughter, the patient stopped breathing for 10 minutes or so at home and was resuscitated for about 20 minutes in the field prior to pulses being regained. She has been afebrile. She has been tolerating tube feeds. Surgery is consulted for tracheostomy and PEG tube placement. Past History Past Medical History: hypertension, other (ALcohol use disorder, Tobacco use disorder) Social history: alcohol abuse, full code. denies: IV drug use Family history: hypertension Medications and Allergies Allergies Allergy/AdvReac Type Severity Reaction Status Date / Time No Known Allergies Allergy Verified 03/28/17 11:20 Home Medications Medication Instructions Recorded Confirmed Last Taken Type Folic Acid [Folvite] 1 mg PO QDAY #30 tablet 05/25/18 11/23/19 Unknown Rx Potassium Chloride [K-Dur] 40 meq PO TID PRN #180 tablet 05/25/18 11/23/19 Unknown Rx Mirtazapine [Remeron 30mg Rapdis] 30 mg PO DAILY 11/23/19 11/23/19 Unknown History Quetiapine Fumarate [Seroquel Xr] 200 mg PO HS 11/23/19 11/23/19 Unknown History Sertraline [Zoloft] 25 mg PO QDAY 11/23/19 11/23/19 Unknown History amLODIPine [Norvasc] 5 mg PO DAILY 11/23/19 11/23/19 Unknown History hydrOXYzine PAMOATE [Vistaril] 25 mg PO BID 11/23/19 11/23/19 Unknown History Active Meds: Active Medications Acetaminophen (Tylenol) 650 mg FEEDTUBE Q6H PRN PRN Reason: TEMP >/=100.3 Last Admin: 12/06/19 11:22 Dose: 650 mg Documented by: Lipase/Protease/Amylase (Radhika Crenshaw 10,500 Unit) 1 each FEEDTUBE PRN PRN PRN Reason: For Clogged Feeding Tube Chlordiazepoxide HCl (Librium) 50 mg PO Q8H COUNT INCLUDES THE [facility] Last Admin: 12/06/19 05:49 Dose: 50 mg Documented by: Fentanyl (Duragesic) 25 mcg TD Q3D COUNT INCLUDES THE [facility] Last Admin: 12/04/19 16:46 Dose: 25 mcg Documented by: Fentanyl (Sublimaze) 50 mcg IV Q10MIN PRN PRN Reason: ANALGESIA Heparin Sodium (Porcine) (Heparin) 5,000 unit SUB-Q Q12HR COUNT INCLUDES THE [facility] Last Admin: 12/06/19 09:52 Dose: 5,000 unit Documented by: Hydralazine HCl (Apresoline) 10 mg IV Q6H PRN PRN Reason: SBP > 160 Last Admin: 11/28/19 08:56 Dose: 10 mg Documented by: Hydrophilic Ointment (Vaseline Lip Therapy) 1 applic TP Q2HR PRN PRN Reason: Dry Lips Hydroxyzine Pamoate (Vistaril) 25 mg PO BID COUNT INCLUDES THE [facility] Last Admin: 12/06/19 11:06 Dose: 25 mg Documented by: Dexmedetomidine HCl 400 mcg/ (Sodium Chloride) 104 mls @ 2.85 mls/hr IV TITRATE COUNT INCLUDES THE [facility]; Protocol Last Titration: 12/05/19 02:25 Dose: 0 mcg/kg/hr, 0 mls/hr Documented by: Fentanyl Citrate (Fentanyl Drip Premix) 2,000 mcg in 100 mls @ 2.74 mls/hr IV TITR COUNT INCLUDES THE [facility]; Protocol Last Titration: 12/06/19 11:19 Dose: 2 mcg/kg/hr, 5.48 mls/hr Documented by: Lansoprazole (Prevacid Solutab) 30 mg FEEDTUBE QDAY COUNT INCLUDES THE [facility] Last Admin: 12/06/19 09:52 Dose: 30 mg Documented by: Levetiracetam (Keppra) 500 mg PO BID COUNT INCLUDES THE [facility] Last Admin: 12/06/19 09:52 Dose: 500 mg Documented by: Lorazepam (Ativan) 2 mg IV Q4H PRN PRN Reason: Agitation Last Admin: 12/05/19 01:09 Dose: 2 mg Documented by: Mirtazapine (Remeron) 30 mg PO DAILY COUNT INCLUDES THE [facility] Last Admin: 12/06/19 11:07 Dose: 30 mg Documented by: Multi-Ingred Cream/Lotion/Oil/Oint (Artificial Tears Ophth Oint) 1 applic OU Q4HR PRN PRN Reason: Dry Eye(s) Quetiapine Fumarate (Seroquel) 300 mg PO BID COUNT INCLUDES THE [facility] Last Admin: 12/06/19 09:52 Dose: 300 mg Documented by: Sertraline HCl (Zoloft) 25 mg PO QDAY COUNT INCLUDES THE [facility] Last Admin: 12/06/19 11:06 Dose: 25 mg Documented by: Simple Syrup (Simple Syrup) 15 ml FEEDTUBE PRN PRN PRN Reason: Hypoglycemia Simple Syrup (Simple Syrup) 30 ml FEEDTUBE PRN PRN PRN Reason: Hypoglycemia Sodium Bicarbonate (Sodium Bicarbonate) 325 mg FEEDTUBE PRN PRN PRN Reason: For Clogged Feeding Tube Review of Systems ROS unobtainable: due to endotracheal tube Exam Vital Signs Pulse Resp 115 H 20 11/22/19 23:04 11/22/19 23:04 Narrative exam: Gen.: Intubated, sedated. No apparent distress. ENT: ET tube and OG tube in place. No lymphadenopathy, pulsatile masses. Trachea is midline CV: S1, S2 present. Tachycardic Respiratory: No audible wheezes. On vent Abdomen: Soft, distended, nontender. No rebound, rigidity, guarding Extremities: No clubbing, cyanosis, edema Results - Labs 12/06/19 10:39 12/06/19 04:14 Abnormal lab results 12/05/19 12/05/19 12/06/19 Range/Units 18:36 23:30 04:14 WBC (4.5-11.0) K/mm3 RBC (3.65-5.03) M/mm3 Hgb (10.1-14.3) gm/dl Hct (30.3-42.9) % MCH (28-32) pg RDW (13.2-15.2) % Plt Count (140-440) K/mm3 Potassium 5.6 H (3.6-5.0) mmol/L Chloride 95.0 L (98-107) mmol/L BUN 48 H (7-17) mg/dL Creatinine 1.3 H D (0.7-1.2) mg/dL POC Glucose 135 H 126 H (70-105) AST 89 H (5-40) units/L ALT 98 H (7-56) units/L Alkaline Phosphatase 476 H (35-129) units/L Albumin 2.8 L (3.9-5) g/dL 12/06/19 12/06/19 12/06/19 Range/Units 05:43 10:39 14:34 WBC 17.3 H (4.5-11.0) K/mm3 RBC 2.60 L (3.65-5.03) M/mm3 Hgb 7.1 L (10.1-14.3) gm/dl Hct 22.7 L (30.3-42.9) % MCH 27 L (28-32) pg RDW 20.1 H (13.2-15.2) % Plt Count 832 H (140-440) K/mm3 Potassium (3.6-5.0) mmol/L Chloride (98-107) mmol/L BUN (7-17) mg/dL Creatinine (0.7-1.2) mg/dL POC Glucose 121 H 128 H (70-105) AST (5-40) units/L ALT (7-56) units/L Alkaline Phosphatase (35-129) units/L Albumin (3.9-5) g/dL Diabetes panel 12/06/19 Range/Units 04:14 Sodium 139 (137-145) mmol/L Potassium 5.6 H (3.6-5.0) mmol/L Chloride 95.0 L (98-107) mmol/L Carbon Dioxide 28 (22-30) mmol/L BUN 48 H (7-17) mg/dL Creatinine 1.3 H D (0.7-1.2) mg/dL Glucose 97 (65-100) mg/dL Calcium 10.1 (8.4-10.2) mg/dL AST 89 H (5-40) units/L ALT 98 H (7-56) units/L Alkaline Phosphatase 476 H (35-129) units/L Total Protein 7.3 (6.3-8.2) g/dL Albumin 2.8 L (3.9-5) g/dL Calcium panel 12/06/19 Range/Units 04:14 Calcium 10.1 (8.4-10.2) mg/dL Albumin 2.8 L (3.9-5) g/dL Pituitary panel 12/06/19 Range/Units 04:14 Sodium 139 (137-145) mmol/L Potassium 5.6 H (3.6-5.0) mmol/L Chloride 95.0 L (98-107) mmol/L Carbon Dioxide 28 (22-30) mmol/L BUN 48 H (7-17) mg/dL Creatinine 1.3 H D (0.7-1.2) mg/dL Glucose 97 (65-100) mg/dL Calcium 10.1 (8.4-10.2) mg/dL Adrenal panel 12/06/19 Range/Units 04:14 Sodium 139 (137-145) mmol/L Potassium 5.6 H (3.6-5.0) mmol/L Chloride 95.0 L (98-107) mmol/L Carbon Dioxide 28 (22-30) mmol/L BUN 48 H (7-17) mg/dL Creatinine 1.3 H D (0.7-1.2) mg/dL Glucose 97 (65-100) mg/dL Calcium 10.1 (8.4-10.2) mg/dL Total Bilirubin 0.60 (0.1-1.2) mg/dL AST 89 H (5-40) units/L ALT 98 H (7-56) units/L Alkaline Phosphatase 476 H (35-129) units/L Total Protein 7.3 (6.3-8.2) g/dL Albumin 2.8 L (3.9-5) g/dL - Imaging Chest x-ray: report reviewed, image reviewed Assessment and Plan 54-year-old female with ventilator dependent respiratory failure status post cardiac arrest 1. Continue tube feeds as tolerated 2. Vent management per ICU 3. DVT prophylaxis 4. I discussed in great detail the indication, procedure for placing tracheostomy and PEG tube on this patient with her daughter over the telephone ( Makayla Jesus ). We discussed all risks, benefits, alternatives to the procedures. All questions answered. The patient's daughter states that she would like to discuss this with her grandmother who is also next of kin and then make a decision. She will have a decision tomorrow. 5. Will check with OR/GI lab re: scheduling procedures Thank you, please call with questions.
--- NOTE | 2019-12-06 15:10 | Progress Note ---
Assessment and Plan Cultures: 11/22/2019 urine culture:no significant growth 11/22/2019 tracheal aspirate culture: H. influenzae 11/23/2019 blood culture: No growth A/P: 54-year-old female with hypertension, depression, tobacco use, alcohol abuse was brought into the emergency room on 11/22/2019 after she went into respiratory arrest at home requiring CPR by EMS: #Sepsis: Source could be UTI versus pneumonitis versus SBP. UA showed pyuria. RUQ US showed no ascites. Completed 7 days of Ceftriaxone on 11/29/2019. #Pneumonitis, acute respiratory failure: Possibly aspiration. No pneumonia seen. On mechanical ventilation. #Elevated LFTs, alcohol abuse, status post arrest requiring CPR: Trend LFTs. RUQ US showed no ascites. #Acute encephalopathy: Likely multifactorial from alcohol abuse, status post arrest, electrolyte abnormalities. #Diarrhea: likely combination of tube feeds and lactulose. Recs: continue off abx trend CBC and LFTs In the absence of new symptoms or vital sign derangements, no fevers could be potentially due to central fevers. overall guarded prognosis Freddy Plata MD [facility] M: [phone] O: [phone] F: [phone] Subjective Date of service: 12/06/19 Principal diagnosis: Ac cardiopulmonary arrest; Ac hypoxemic resp failure; Acute encephalopathy Interval history: T-max of 100.3 degrees, with a white count of 17 which is persistently elevated. Objective - Exam Narrative Exam: Constitutional: comatose, intubated Head, Ears, Nose: Normocephalic, atraumatic. Eyes: Conjunctivae/corneas clear. Neck: intubated Oral: intubated Cardiovascular: S1, S2 normal Respiratory: Good air entry, clear to auscultation bilaterally GI: slightly distended, bowel sounds present. Rectal tube present with liquid stool Musculoskeletal: No pedal edema, no cyanosis. Skin: No rash or abscess Hem/Lymphatic: No palpable cervical or supraclavicular nodes. No lymphangitis Psych: no agitation. Neurological: comatose, intubated, on vent - Constitutional Vitals: Vital Signs Temp Pulse Resp BP Pulse Ox 100.3 F H 124 H 12 119/73 100 12/06/19 08:00 12/06/19 12:30 12/06/19 12:30 12/06/19 12:30 12/06/19 12:30 Temperature -Last 24 Hours Temperature 100.3 F Temperature 98.7 F Temperature 98.6 F Temperature 98.7 F Temperature 99.0 F - Labs CBC & Chem 7: 12/06/19 10:39 12/06/19 04:14 Labs: Abnormal lab results 12/05/19 12/05/19 12/06/19 Range/Units 18:36 23:30 04:14 WBC (4.5-11.0) K/mm3 RBC (3.65-5.03) M/mm3 Hgb (10.1-14.3) gm/dl Hct (30.3-42.9) % MCH (28-32) pg RDW (13.2-15.2) % Plt Count (140-440) K/mm3 Potassium 5.6 H (3.6-5.0) mmol/L Chloride 95.0 L (98-107) mmol/L BUN 48 H (7-17) mg/dL Creatinine 1.3 H D (0.7-1.2) mg/dL POC Glucose 135 H 126 H (70-105) AST 89 H (5-40) units/L ALT 98 H (7-56) units/L Alkaline Phosphatase 476 H (35-129) units/L Albumin 2.8 L (3.9-5) g/dL 12/06/19 12/06/19 12/06/19 Range/Units 05:43 10:39 14:34 WBC 17.3 H (4.5-11.0) K/mm3 RBC 2.60 L (3.65-5.03) M/mm3 Hgb 7.1 L (10.1-14.3) gm/dl Hct 22.7 L (30.3-42.9) % MCH 27 L (28-32) pg RDW 20.1 H (13.2-15.2) % Plt Count 832 H (140-440) K/mm3 Potassium (3.6-5.0) mmol/L Chloride (98-107) mmol/L BUN (7-17) mg/dL Creatinine (0.7-1.2) mg/dL POC Glucose 121 H 128 H (70-105) AST (5-40) units/L ALT (7-56) units/L Alkaline Phosphatase (35-129) units/L Albumin (3.9-5) g/dL
--- NOTE | 2019-12-06 20:16 | Progress Note ---
Assessment and Plan Assessment and plan: 54-year-old female with a past medical history of Hypertension, Depression, Tobacco use Disorder, Alcohol use Disorder as confirmed by Daughter and pt's mother presents to the hospital status post cardiac arrest. Patient is from home and family called EMS at 22: 27 for the pt who had told family members that she was not feeling good and c/o her chronic hip pain. She urinated and then was speaking, then she " froze and was rigid " per daughter and she became unresponsive and stopped breathing. Immediately, family began CPR. EMS found pt in PEA. Upon their arrival patient in SinuS Tachycardia.. They were unable to intubate patient with a ET tube because she was clenching down therefore Joe airway placed. Patient received Narcan and Epinephrine. Patient's rhythm changed to PEA to sinus bradycardia, to PEA, then to sinus tach after receiving Narcan and Epinephrine. Per the ED physician who evaluated pt, Patient presented with a pulse, intermittent respirations, and bagging support via Joe airway with O2 sat of 100%. Accu-Chek of [address] Rodriguez spoke to patient's family (daughter and mother). MOther is Anh Jesus- [phone] and she would like to be called about pt's progress or notified about the pt. No seizure activity was noted. They deny that patient brown d any preceding infection symptoms, cough, fever, complaints of chest pain, shortness of breath, or any bleeding diathesis, melena, hematochezia, hematuria, hematemesis, or abdominal pain. Patient is a known alcoholic and continues to drink per daughter. No history could be obtained from the pt due to her mechanical ventilation. No previous hx of DVT/PE per mother and daughter. 12/04: Patient failed CPAP trial became apneic according to documentation. 12/05: No clinical change, continue current management, monitor H/H Acute respiratory failure with hypoxia Seizure disorder Presumed anoxic brain injury Alcohol abuse Acute metabolic encephalopathy/toxic encephalopathy Hypertension Status post cardiac arrest Distended abodmen, NGT to suction Transaminitis Acute cystitis Metabolic acidosis/alcoholic acidosis/lactic acidosis Sepsis Ischemic hepatitis Plan Continue Keppra at this time. RE-eval by neurology, no clinical change PEG and Trach being planned for If aggressive treatment is still sought after despite discussion with neurologist will proceed with PEG and trach. Will discuss with pulmonary this morning considering patient's apneic status following CPAP trial. Patient was on restraints as she gets agitated when off sedation. Precedex was added yesterday. And Librium was increased to 50 mg every 8 hours. Patient had intact corneal and cough reflex and withdrew to pain lower extremity initially although out of hospital cardiac arrest was noted. It is less likely that this patient will have any meaningful recovery following extubation. Continue to monitor LFTs She is on antibiotics and this completed a few days 11/29/2019 ago no growth was noted on cultures no fever. We will continue off antibiotics at this time. Restraints Poor prognosis The high probability of a clinically significant, sudden or life threatening deterioration of the [pulmonary, neurology] system(s) required my full and direct attention, intervention and personal management. The aggregate critical care time was [35] minutes. This time is in addition to time spent performing reported procedures but includes the following: [v] Data Review and interpretation (v) Patient assessment and monitoring of vital signs [v] Documentation [v] Medication orders and management History Interval history: Patient seen and examined, remains unresponsive and on full respiratory support, No clinical change Hospitalist Physical - Physical exam Narrative exam: General appearance: Present: no acute distress, other (on vent with sedation, elderly female), not responsive - EENT ENT: no oropharyngeal erythema, no poor dentition, no thrush - Neck Neck: Present: supple - Respiratory Respiratory effort: normal Respiratory: bilateral: diminished (On ventilator.) - Cardiovascular Rhythm: regular Heart Sounds: Absent: systolic murmur, diastolic murmur - Extremities Extremities: no ischemia, pulses intact, pulses symmetrical, normal temperature, normal color Extremity abnormal: edema Peripheral Pulses: within normal limits - Abdominal General gastrointestinal: deferred, non-tender, distended, hypoactive bowel sounds - Integumentary Integumentary: Present: clear, warm, dry Neuro: Unresponsive, tongue protruding. - Constitutional Vitals: Temp Pulse Resp BP Pulse Ox 98.8 F 108 H 12 123/73 99 12/06/19 16:00 12/06/19 18:30 12/06/19 18:30 12/06/19 18:30 12/06/19 18:30 General appearance: Present: no acute distress, other (on vent with sedation, elderly female) Results - Labs CBC & Chem 7: 12/06/19 10:39 12/06/19 04:14 Labs: Laboratory Last Values WBC 17.3 K/mm3 (4.5-11.0) H 12/06/19 10:39 RBC 2.60 M/mm3 (3.65-5.03) L 12/06/19 10:39 Hgb 7.1 gm/dl (10.1-14.3) L 12/06/19 10:39 Hct 22.7 % (30.3-42.9) L 12/06/19 10:39 MCV 87 fl (79-97) 12/06/19 10:39 MCH 27 pg (28-32) L 12/06/19 10:39 MCHC 31 % (30-34) 12/06/19 10:39 RDW 20.1 % (13.2-15.2) H 12/06/19 10:39 Plt Count 832 K/mm3 (140-440) H 12/06/19 10:39 Lymph % (Auto) 11.3 % (13.4-35.0) L 12/04/19 07:45 Quay % (Auto) 15.2 % (0.0-7.3) H 12/04/19 07:45 Eos % (Auto) 0.5 % (0.0-4.3) 12/04/19 07:45 Baso % (Auto) 0.6 % (0.0-1.8) 12/04/19 07:45 Lymph # 1.8 K/mm3 (1.2-5.4) 12/04/19 07:45 Quay # 2.4 K/mm3 (0.0-0.8) H 12/04/19 07:45 Eos # 0.1 K/mm3 (0.0-0.4) 12/04/19 07:45 Baso # 0.1 K/mm3 (0.0-0.1) 12/04/19 07:45 Add Manual Diff Complete 12/04/19 07:45 Total Counted 100 12/01/19 08:23 Seg Neutrophils % 72.4 % (40.0-70.0) H 12/04/19 07:45 Seg Neuts % (Manual) 91.0 % (40.0-70.0) H 12/01/19 08:23 Band Neutrophils % 0 % 12/01/19 08:23 Lymphocytes % (Manual) 3.0 % (13.4-35.0) L 12/01/19 08:23 Reactive Lymphs % (Man) 1.0 % 12/01/19 08:23 Monocytes % (Manual) 5.0 % (0.0-7.3) 12/01/19 08:23 Eosinophils % (Manual) 0 % (0.0-4.3) 12/01/19 08:23 Basophils % (Manual) 0 % (0.0-1.8) 12/01/19 08:23 Metamyelocytes % 0 % 12/01/19 08:23 Myelocytes % 0 % 12/01/19 08:23 Promyelocytes % 0 % 12/01/19 08:23 Blast Cells % 0 % 12/01/19 08:23 Nucleated RBC % Not Reportable 12/01/19 08:23 Seg Neutrophils # 11.5 K/mm3 (1.8-7.7) H 12/04/19 07:45 Seg Neutrophils # Man 20.7 K/mm3 (1.8-7.7) H 12/01/19 08:23 Band Neutrophils # 0.0 K/mm3 12/01/19 08:23 Lymphocytes # (Manual) 0.7 K/mm3 (1.2-5.4) L 12/01/19 08:23 Abs React Lymphs (Man) 0.2 K/mm3 12/01/19 08:23 Monocytes # (Manual) 1.1 K/mm3 (0.0-0.8) H 12/01/19 08:23 Eosinophils # (Manual) 0.0 K/mm3 (0.0-0.4) 12/01/19 08:23 Basophils # (Manual) 0.0 K/mm3 (0.0-0.1) 12/01/19 08:23 Metamyelocytes # 0.0 K/mm3 12/01/19 08:23 Myelocytes # 0.0 K/mm3 12/01/19 08:23 Promyelocytes # 0.0 K/mm3 12/01/19 08:23 Blast Cells # 0.0 K/mm3 12/01/19 08:23 WBC Morphology Not Reportable 12/01/19 08:23 Hypersegmented Neuts Not Reportable 12/01/19 08:23 Hyposegmented Neuts Not Reportable 12/01/19 08:23 Hypogranular Neuts Not Reportable 12/01/19 08:23 Smudge Cells Not Reportable 12/01/19 08:23 Toxic Granulation Not Reportable 12/01/19 08:23 Toxic Vacuolation Not Reportable 12/01/19 08:23 Dohle Bodies Not Reportable 12/01/19 08:23 Pelger-Huet Anomaly Not Reportable 12/01/19 08:23 Dominique Rods Not Reportable 12/01/19 08:23 Platelet Estimate Consistent w auto 12/01/19 08:23 Clumped Platelets Not Reportable 12/01/19 08:23 Plt Clumps, EDTA Not Reportable 12/01/19 08:23 Large Platelets Not Reportable 12/01/19 08:23 Giant Platelets Few 12/01/19 08:23 Platelet Satelliting Not Reportable 12/01/19 08:23 Plt Morphology Comment Not Reportable 12/01/19 08:23 RBC Morphology Not Reportable 12/01/19 08:23 Dimorphic RBCs Not Reportable 12/01/19 08:23 Polychromasia Few 12/01/19 08:23 Hypochromasia Few 12/01/19 08:23 Poikilocytosis Not Reportable 12/01/19 08:23 Anisocytosis Not Reportable 12/01/19 08:23 Microcytosis Not Reportable 12/01/19 08:23 Macrocytosis Not Reportable 12/01/19 08:23 Spherocytes Not Reportable 12/01/19 08:23 Pappenheimer Bodies Not Reportable 12/01/19 08:23 Sickle Cells Not Reportable 12/01/19 08:23 Target Cells 1+ 12/01/19 08:23 Tear Drop Cells Not Reportable 12/01/19 08:23 Ovalocytes Not Reportable 12/01/19 08:23 Helmet Cells Not Reportable 12/01/19 08:23 Frias-[place] Bodies Not Reportable 12/01/19 08:23 Bumpass Rings Not Reportable 12/01/19 08:23 [place] Cells Not Reportable 12/01/19 08:23 Bite Cells Not Reportable 12/01/19 08:23 Crenated Cell Not Reportable 12/01/19 08:23 Elliptocytes Not Reportable 12/01/19 08:23 Acanthocytes (Spur) Not Reportable 12/01/19 08:23 Rouleaux Not Reportable 12/01/19 08:23 Hemoglobin C Crystals Not Reportable 12/01/19 08:23 Schistocytes Not Reportable 12/01/19 08:23 Malaria parasites Not Reportable 12/01/19 08:23 Gregg Bodies Not Reportable 12/01/19 08:23 Hem Pathologist Commnt No 12/01/19 08:23 PT 17.0 Sec. (12.2-14.9) H 11/23/19 03:47 INR 1.36 (0.87-1.13) H 11/23/19 03:47 APTT 128.2 Sec. (24.2-36.6) H* 11/23/19 03:47 Heparin Anti-Xa Level 0.31 U.I./ml (0.3-0.7) 11/23/19 09:03 ABG pH 7.437 pH Units (7.350-7.450) 12/03/19 20:00 ABG pCO2 50.7 mm Hg 12/03/19 20:00 ABG pO2 68.3 mm Hg (80.0-90.0) L 12/03/19 20:00 ABG HCO3 33.5 mmol/L (20.0-26.0) H 12/03/19 20:00 ABG O2 Saturation 93.5 % (95.0-99.0) L 12/03/19 20:00 ABG O2 Content 9.5 (0.0-44) 12/03/19 20:00 ABG Base Excess 8.4 mmol/L (-2.0-3.0) H 12/03/19 20:00 ABG Hemoglobin 7.3 gm/dl (12.0-16.0) L 12/03/19 20:00 ABG Carboxyhemoglobin 2.3 % (0.0-5.0) 12/03/19 20:00 ABG Methemoglobin 0.4 % (0.0-1.5) 12/03/19 20:00 Oxyhemoglobin 90.9 % (95.0-99.0) L 12/03/19 20:00 FiO2 30 % 12/03/19 20:00 Sodium 139 mmol/L (137-145) 12/06/19 04:14 Potassium 5.6 mmol/L (3.6-5.0) H 12/06/19 04:14 Chloride 95.0 mmol/L (98-107) L 12/06/19 04:14 Carbon Dioxide 28 mmol/L (22-30) 12/06/19 04:14 Anion Gap 22 mmol/L 12/06/19 04:14 BUN 48 mg/dL (7-17) H 12/06/19 04:14 Creatinine 1.3 mg/dL (0.7-1.2) H D 12/06/19 04:14 Estimated GFR 52 ml/min 12/06/19 04:14 BUN/Creatinine Ratio 37 % 12/06/19 04:14 Glucose 97 mg/dL (65-100) 12/06/19 04:14 POC Glucose 128 (70-105) H 12/06/19 14:34 Lactic Acid 1.80 mmol/L (0.7-2.0) 11/25/19 05:05 Calcium 10.1 mg/dL (8.4-10.2) 12/06/19 04:14 Ionized Calcium 4.5 mg/dL (4.8-5.6) L 11/23/19 06:32 Phosphorus 4.20 mg/dL (2.5-4.5) D 11/28/19 08:59 Magnesium 2.30 mg/dL (1.7-2.3) 11/29/19 13:41 Total Bilirubin 0.60 mg/dL (0.1-1.2) 12/06/19 04:14 AST 89 units/L (5-40) H 12/06/19 04:14 ALT 98 units/L (7-56) H 12/06/19 04:14 Alkaline Phosphatase 476 units/L (35-129) H 12/06/19 04:14 Ammonia 42.0 umol/L (25-60) 11/29/19 13:41 Total Creatine Kinase 139 units/L (30-135) H 11/22/19 23:27 CK-MB (CK-2) 8.3 ng/mL (0.0-4.0) H 11/22/19 23:27 CK-MB (CK-2) Rel Index 5.9 (0-4) H 11/22/19 23:27 Troponin T < 0.010 ng/mL (0.00-0.029) 11/22/19 23:27 Total Protein 7.3 g/dL (6.3-8.2) 12/06/19 04:14 Albumin 2.8 g/dL (3.9-5) L 12/06/19 04:14 Albumin/Globulin Ratio 0.6 % 12/06/19 04:14 Lipase 18 units/L (13-60) 11/23/19 00:34 Procalcitonin 1.09 ng/mL (<0.15) 11/23/19 04:53 Urine Color Yellow (Yellow) 11/22/19 23:17 Urine Turbidity Cloudy (Clear) 11/22/19 23:17 Urine pH 6.0 (5.0-7.0) 11/22/19 23:17 Ur Specific Bruno 1.010 (1.003-1.030) 11/22/19 23:17 Urine Protein >500 mg/dL (Negative) 11/22/19 23:17 Urine Glucose (UA) >=500 mg/dL (Negative) 11/22/19 23:17 Urine Ketones 20 mg/dL (Negative) 11/22/19 23:17 Urine Blood Mod (Negative) 11/22/19 23:17 Urine Nitrite Neg (Negative) 11/22/19 23:17 Urine Bilirubin Neg (Negative) 11/22/19 23:17 Urine Urobilinogen 4.0 mg/dL (<2.0) 11/22/19 23:17 Ur Leukocyte Esterase Neg (Negative) 11/22/19 23:17 Urine WBC (Auto) 40.0 /HPF (0.0-6.0) H 11/22/19 23:17 Urine RBC (Auto) 10.0 /HPF (0.0-6.0) 11/22/19 23:17 U Epithel Cells (Auto) 1.0 /HPF (0-13.0) 11/22/19 23:17 Urine Bacteria (Auto) 2+ /HPF (Negative) 11/22/19 23:17 Urine Mucus Few /HPF 11/22/19 23:17 Salicylates < 0.3 mg/dL (2.8-20.0) L 11/22/19 23:27 Urine Opiates Screen Presumptive negative 11/22/19 23:17 Urine Methadone Screen Presumptive negative 11/22/19 23:17 Acetaminophen < 5.0 ug/mL (10.0-30.0) L 11/22/19 23:27 Ur Barbiturates Screen Presumptive negative 11/22/19 23:17 Ur Phencyclidine Scrn Presumptive negative 11/22/19 23:17 Ur Amphetamines Screen Presumptive negative 11/22/19 23:17 U Benzodiazepines Scrn Presumptive negative 11/22/19 23:17 Urine Cocaine Screen Presumptive negative 11/22/19 23:17 U Marijuana (THC) Screen Presumptive negative 11/22/19 23:17 Drugs of Abuse Note Disclamer 11/22/19 23:17 Plasma/Serum Alcohol 0.08 % (0-0.07) H 11/22/19 23:27 Hepatitis A IgM Ab Non-reactive (NonReactive) 11/23/19 01:19 Hep Bs Antigen Non-reactive (Negative) 11/23/19 01:19 Hep B Core IgM Ab Non-reactive (NonReactive) 11/23/19 01:19 Hepatitis C Antibody Non-reactive (NonReactive) 11/23/19 01:19 - Diagnostic Impressions Diagnostic Impressions: Echocardiogram 11/23/19 03:58 Transthoracic Echocardiogram Indication: Cardiac arrest BP: 131/89 HR: 115 Conclusions *The study quality is technically difficult. *Global left ventricular wall motion and contractility are within normal limits. *The estimated ejection fraction is 55-60%. *Abnormal left ventricular diastolic filling is observed, consistent with impaired relaxation. *There is no pericardial effusion. Findings Procedure Info: The study quality is technically difficult. The study was technically limited due to the patient's inability to lay in the left lateral decubitus position. Left Ventricle: The left ventricular chamber size is normal. There is no left ventricular hypertrophy. Global left ventricular wall motion and contractility are within normal limits. Global left ventricular systolic function is normal. The estimated ejection fraction is 55-60%. Abnormal left ventricular diastolic filling is observed, consistent with impaired relaxation. Left Atrium: The left atrial chamber size is normal. Aortic Valve: The aortic valve leaflets are mildly thickened. Mitral Valve: The mitral valve leaflets are mildly thickened. There is no evidence of mitral regurgitation. Tricuspid Valve: The tricuspid valve leaflets are normal. There is trace tricuspid regurgitation. The right ventricular systolic pressure is calculated at 33 mmHg. Pulmonic Valve: The pulmonic valve appears normal. Pericardium: The pericardium appears normal. There is no pericardial effusion. Aorta: The aorta appears normal. Venous: The inferior vena cava appears normal in size. Measurements Chambers 2D Name Value Normal Range IVSd (2D) 0.94 cm (0.6 - 1.1) LVPWd (2D) 0.81 cm (0.6 - 1.1) LVIDd (2D) 3.6 cm (3.7 - 5.6) LVIDs (2D) 2.27 cm (2 - 3.8) LV FS (2D) 36.93 % - EF Teichholz (2D) 67.76 % - Ao root diameter (2D) 3.03 cm (2 - 3.7) Volumes/Mass Name Value Normal Range LA ESV SP 4CH (A/L) 16.89 ml - LA ESV SP 4CH (MOD) 15.52 ml - Diastolic/Systolic Function Name Value Normal Range MV E-wave Vmax 0.55 m/sec - MV deceleration time 200.89 msec - MV A-wave Vmax 0.68 m/sec - MV E:A ratio 0.82 ratio - Aortic Valve Name Value Normal Range AV Vmax 1.1 m/sec - AV VTI 15.9 cm - AV peak gradient 4.86 mmHg - AV mean gradient 2.59 mmHg - LVOT diameter 2 cm - LVOT Vmax 1.03 m/sec - LVOT VTI 15.87 cm - LVOT peak gradient 4.24 mmHg - LVOT mean gradient 2.41 mmHg - SV LVOT 49.77 ml - JOSÉ MIGUEL (continuity Vmax) 2.93 cm2 - JOSÉ MIGUEL (continuity VTI) 3.13 cm2 - Tricuspid Valve Name Value Normal Range TR Vmax 2.74 m/sec - TR peak gradient 303 mmHg - RAP 3 mmHg - RVSP 33 mmHg - IVC diameter 1.77 cm (1.2 - 2.3) Pulmonic Valve/Qp:Qs Name Value Normal Range PV Vmax 0.77 m/sec - PV peak gradient 2.4 mmHg - PV acceleration time 114.18 msec - Dela Cruz/IV: Voiding Method External Female Catheter IV Catheter Type [Right Wrist] Peripheral IV IV Catheter Type [Left Wrist] Peripheral IV IV Catheter Type [Left Peripheral IV Antecubital] IV Catheter Type [Right INT / Saline Lock Forearm] IV Catheter Type [Left Hand] Peripheral IV Active Medications - Current Medications Current Medications: Generic Name Dose Route Start Last Admin Trade Name Freq PRN Reason Stop Dose Admin Acetaminophen 650 mg 12/06/19 10:25 12/06/19 11:22 Tylenol FEEDTUBE 650 mg Q6H PRN Administration TEMP >/=100.3 Lipase/Protease/Amylase 1 each 11/23/19 11:[address] 10,500 Unit FEEDTUBE PRN PRN For Clogged Feeding Tube Chlordiazepoxide HCl 50 mg 12/04/19 14:00 12/06/19 14:15 Librium PO 50 mg Q8H LUCHO Administration Fentanyl 25 mcg 12/04/19 17:00 12/04/19 16:46 Duragesic TD 25 mcg Q3D LUCHO Administration Fentanyl 50 mcg 12/05/19 02:10 Sublimaze IV Q10MIN PRN ANALGESIA Heparin Sodium (Porcine) 5,000 unit 11/23/19 22:00 12/06/19 09:52 Heparin SUB-Q 5,000 unit Q12HR LUCHO Administration Hydralazine HCl 10 mg 11/24/19 00:45 11/28/19 08:56 Apresoline IV 10 mg Q6H PRN Administration SBP > 160 Hydrophilic Ointment 1 applic 11/22/19 23:23 Vaseline Lip Therapy TP Q2HR PRN Dry Lips Hydroxyzine Pamoate 25 mg 12/06/19 10:00 12/06/19 11:06 Vistaril PO 25 mg BID LUCHO Administration Dexmedetomidine HCl 400 mcg/ 104 mls @ 2.85 mls/hr 12/04/19 14:00 12/05/19 02:25 Sodium Chloride IV 0 mcg/kg/hr TITRATE LUCHO 0 mls/hr Titration Protocol 0.2 MCG/KG/HR Fentanyl Citrate 2,000 mcg in 100 mls @ 2.74 mls/hr 12/05/19 03:00 12/06/19 11:19 Fentanyl Drip Premix IV 2 mcg/kg/hr TITR LUCHO 5.48 mls/hr Titration Protocol 1 MCG/KG/HR Lansoprazole 30 mg 11/27/19 10:00 12/06/19 09:52 Prevacid Solutab FEEDTUBE 30 mg QDAY LUCHO Administration Levetiracetam 500 mg 11/29/19 10:00 12/06/19 09:52 Keppra PO 500 mg BID LUCHO Administration Lorazepam 2 mg 11/26/19 11:09 12/05/19 01:09 Ativan IV 2 mg Q4H PRN Administration Agitation Mirtazapine 30 mg 12/06/19 10:00 12/06/19 11:07 Remeron PO 30 mg DAILY LUCHO Administration Multi-Ingred Cream/Lotion/Oil/Oint 1 applic 11/22/19 23:23 Artificial Tears Ophth Oint OU Q4HR PRN Dry Eye(s) Quetiapine Fumarate 300 mg 11/30/19 22:00 12/06/19 09:52 Seroquel PO 300 mg BID LUCHO Administration Sertraline HCl 25 mg 12/06/19 10:00 12/06/19 11:06 Zoloft PO 25 mg QDAY LUCHO Administration Simple Syrup 15 ml 11/23/19 11:50 Simple Syrup FEEDTUBE PRN PRN Hypoglycemia Simple Syrup 30 ml 11/23/19 11:50 Simple Syrup FEEDTUBE PRN PRN Hypoglycemia Sodium Bicarbonate 325 mg 11/23/19 11:50 Sodium Bicarbonate FEEDTUBE PRN PRN For Clogged Feeding Tube Nutrition/Malnutrition Assess - Dietary Evaluation Nutrition/Malnutrition Findings: Nutrition Notes Start: 11/23/19 11:29 Freq: Status: Active Protocol: Document 12/05/19 13:24 LM (Rec: 12/05/19 13:26 LM [id number]) Nutrition Notes Initial or Follow up Reassessment Current Diagnosis Hypertension Other Pertinent Diagnosis Cardaic arrest, ETOH dependence, UTI Current Diet Vital AF 1.2 at 50 ml/hr Labs/Tests 12/03 Na 140 Pertinent Medications Reviewed Height 5 ft 6 in Weight 54.8 kg [place] Body Weight (kg) 59.09 BMI 19.5 Subjective/Other Information Vital running at 50 ml/hr. pt tolerating. Percent of energy/protein needs met: 100%/100% Burn Absent Trauma Absent GI Symptoms None Current % PO Negligible Minimum of two criteria No Muscle Mass Mild Depletion (non-severe) #1 Nutrition Diagnosis Inadequate oral intake Diagnosis Progress(for reassessment Continues documentation) Is patient on ventilator? Yes Is Patient Ambulatory and/or Out of Bed No REE-([place]-St. Jeor-confined to bed) 1402.224 Calculation Used for Recommendations [place]-St Jeor Additional Notes Protein: 66-110g (1.2-2g/kg) Fluid: 1 ml/kcal Nutrition Intervention Change Diet Order: TF Nutrition Support: Vital AF 1.2 at 50 ml/hr Flush 200 ml q4h for hypernatremia Flush 80 ml q4h once hypernatremia resolves Kcal 1,440 Protein (gm) 90 Fluid (mL) 973 Goal #1 TF tolerance Goal #2 Meet at least 80% of energy and protein needs via TF Anticipated Discharge Needs: unable to determine at this time Follow-Up By: 12/12/19 Additional Comments F/U for TF tolerance
[2019-12-07 04:41] LABS: Hematocrit 22.3 % (30.3-42.9); Hemoglobin 7.1 gm/dl (10.1-14.3); Mean Corpuscular HGB Conc 32 % (30-34); Mean Corpuscular Volume 87 fl (79-97); Platelet Count 782 K/mm3 (140-440); Red Blood Count 2.56 M/mm3 (3.65-5.03); Red Cell Distribution Width 19.4 % (13.2-15.2)
[2019-12-07 05:04] LABS: Calcium 10.3 mg/dL (8.4-10.2)
[2019-12-07] MEDS: chlordiazePOXIDE 25 MG CAP PO SCH ×3 (05:19→21:51)
--- NOTE | 2019-12-07 09:58 | Progress Note ---
Assessment and Plan Acute cardiopulmonary arrest with ROSC Acute hypoxemic respiratory failure on MVS Acute [id number] encephalopathy Metabolic acidosis/alcoholic acidosis/Lactic acidosis( resolved) Ischemic hepatitis Leucocytosis - persistent Erythrocytosis Tobacco use disorder Alcohol use Disorder -Discussed with RT, the need for daily SBT-continue the same while monitoring response -Continue to monitor off antibiotics -Persistent leukocytosis but is on steroids, currently weaning -KUB for abdominal distension -Stop am Seroquel, continue Seroquel 300mg qhs-will adjust dosing based on her mental status -Pending tracheostomy and PEG placement -Continue all care as documented below. -Continue with MVS, Lung protective strategies, monitor airway pressures -VAP bundle addressed -Continue aspiration precautions, HOB>40 -Continue daily assessment for readiness for SBT -Continue Stress ulcer prophylaxis -Continue enteric nutritional support at goal rate. Monitor glycemic control, with target blood glucose 140-180 mg/dL while critically ill. -Avoid hypoglycemia - Continue to wean supplemental oxygen for target O2 sat's > 90% -ABG and CXR prn -Continue to trend leukocytosis -Continue to treat for hepatic encephalopathy-bowel regimen, no need to trend ammonia levels -Continue thiamine, multivitamin and electrolyte replacement -Continue to avoid nephrotoxins, adjust all medications for GFR and CrCL - Continue bronchodilators with pulmonary hygiene - Continue prn analgesia per CPOT score - Continue to maintain of sleep-wake cycle, avoid delirium - PT/OT/ROM exercises - Continue mobility protocol and skin assessment per protocol for pressure ulcer prevention - Continue to monitor for clinical seizures - continue other care per attending / other consultants Discussed with her mother- who is her POA ( ) She had questions about the tracheostomy and PEG - her granddaughter apparently was called about the PEG/Trach . She had questions about sedation. She says that her grand-daughter states that her mother had fecal incontinence prior to her acute illness Ms Jesus states she wants to think about the tracheostomy and PEG She also wants to know is Ms Yi Jesus's son who is incarcerated can visit, especially with the current lockdown in the ICU. I will ask CM/SW to reach out to her to address the issues. I have updated her on all her daughter's medical issues CONDITION: CRITICAL PROGNOSIS: GUARDED CODE STATUS: FULL CODE The high probability of a clinically significant, sudden or life-threatening deterioration of the [respiratory, cardiovascular,GI/hepatology/Neurology] system(s) required my full and direct attention, intervention and personal management. The aggregate critical care time was [31] minutes without overlap. Time includes spent on; [x] Data Review and interpretation [x] Patient assessment and monitoring of vital signs [x] Documentation [x] Medication orders and management Subjective Date of service: 12/07/19 Principal diagnosis: Ac cardiopulmonary arrest; Ac hypoxemic resp failure; Acute encephalopathy Interval history: Patient is seen today for: Acute cardiopulmonary arrest with ROSC; Acute hypoxemic respiratory failure; Acute metabolic-toxic encephalopathy; Ischemic hepatitis; Leucocytosis with lactic acidosis; Tobacco use disorder; Alcohol use Disorder; High grade fevers Seen and examined at bedside; 24hour events reviewed; nursing and respiratory care staff consulted; no adverse overnight events reported to me; resting peacefully in bed; no fevers, remains orally intubated and on MVS. Appears to be a little more awake, not obeying commands, takes a while to open her eyes to verbal command, and even then barely Abdominal distension, tube feeding on hold. Tolerating CPAP 06/24, with spontanesously generated tidal volumes of 350 Objective Vital Signs - 12hr 12/06/19 12/06/19 12/06/19 22:00 22:30 23:00 Temperature Pulse Rate 106 H 105 H 104 H Pulse Rate [ From Monitor] Respiratory 12 13 12 Rate Blood Pressure 120/79 130/86 130/85 O2 Sat by Pulse 99 95 98 Oximetry 12/06/19 12/06/19 12/06/19 23:03 23:30 23:38 Temperature 98 F Pulse Rate 104 H 105 H Pulse Rate [ From Monitor] Respiratory 12 13 Rate Blood Pressure 130/85 122/79 O2 Sat by Pulse 98 99 Oximetry 12/07/19 12/07/19 12/07/19 00:00 00:30 00:54 Temperature Pulse Rate 103 H 102 H 103 H Pulse Rate [ 103 H From Monitor] Respiratory 12 12 Rate Blood Pressure 126/83 128/86 127/84 O2 Sat by Pulse 100 100 100 Oximetry 12/07/19 12/07/19 12/07/19 01:00 01:30 02:00 Temperature Pulse Rate 104 H 105 H 108 H Pulse Rate [ From Monitor] Respiratory 12 12 12 Rate Blood Pressure 135/91 127/84 118/76 O2 Sat by Pulse 100 100 100 Oximetry 12/07/19 12/07/19 12/07/19 02:31 03:00 03:23 Temperature 98.4 F Pulse Rate 115 H 109 H Pulse Rate [ From Monitor] Respiratory 13 12 Rate Blood Pressure 119/78 123/82 O2 Sat by Pulse 100 Oximetry 12/07/19 12/07/19 12/07/19 03:30 04:00 04:30 Temperature Pulse Rate 107 H 106 H 105 H Pulse Rate [ 106 H From Monitor] Respiratory 12 12 12 Rate Blood Pressure 127/87 131/89 134/89 O2 Sat by Pulse 100 100 100 Oximetry 12/07/19 12/07/19 12/07/19 04:44 05:00 05:30 Temperature Pulse Rate 103 H 107 H 106 H Pulse Rate [ From Monitor] Respiratory 12 12 Rate Blood Pressure 131/88 131/90 135/88 O2 Sat by Pulse 100 100 100 Oximetry 12/07/19 12/07/19 12/07/19 06:00 06:30 07:00 Temperature Pulse Rate 105 H 106 H 105 H Pulse Rate [ From Monitor] Respiratory 12 12 12 Rate Blood Pressure 126/85 129/86 124/82 O2 Sat by Pulse 100 100 100 Oximetry 12/07/19 12/07/19 12/07/19 07:30 07:52 08:00 Temperature Pulse Rate 106 H 104 H 104 H Pulse Rate [ 105 H From Monitor] Respiratory 12 12 Rate Blood Pressure 130/87 110/78 127/83 O2 Sat by Pulse 100 100 100 Oximetry Constitutional: no acute distress, other (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, orally intuabted ETT at 23 cm at the lip to mVS, no dys-synchrony) Eyes: non-icteric ENT: oropharynx moist, other (ETT 23 cm AMALIA) Neck: supple, no lymphadenopathy, no JVD Effort: normal Ascultation: Bilateral: diminished breath sounds, rhonchi Percussion: Bilateral: not dull Cardiovascular: regular rate and rhythm (tachycardia), other (S1,S2) Gastrointestinal: normoactive bowel sounds, soft, non-tender, non-distended Integumentary: normal Extremities: no cyanosis, no edema, pulses normal, no ischemia or petechiae Neurologic: unable to assess, other (awake but not tracking voice ) Psychiatric: other (Psychiatric: Unable to assess) CBC and BMP: 12/07/19:44 12/07/19 03:44 ABG, PT/INR, D-dimer: ABG ABG pH 7.437 pH Units (7.350-7.450) 12/03/19 20:00 ABG pCO2 50.7 mm Hg 12/03/19 20:00 ABG pO2 68.3 mm Hg (80.0-90.0) L 12/03/19 20:00 ABG O2 Saturation 93.5 % (95.0-99.0) L 12/03/19 20:00 PT/INR, D-dimer PT 17.0 Sec. (12.2-14.9) H 11/23/19 03:47 INR 1.36 (0.87-1.13) H 11/23/19 03:47 Abnormal lab findings: Abnormal Labs 11/22/19 11/22/19 11/22/19 23:17 23:18 23:27 WBC 21.2 H RBC 3.59 L Hgb 9.8 L Hct MCH 27 L RDW 18.6 H Plt Count 454 H Lymph % (Auto) [place] % (Auto) [place] # Seg Neutrophils % Seg Neuts % (Manual) 86.0 H Lymphocytes % (Manual) 9.0 L Seg Neutrophils # Seg Neutrophils # Man 18.2 H Lymphocytes # (Manual) Monocytes # (Manual) 1.1 H PT INR APTT ABG pH ABG pO2 ABG HCO3 ABG O2 Saturation ABG Base Excess ABG Hemoglobin Oxyhemoglobin Sodium Potassium Chloride Carbon Dioxide BUN Creatinine Glucose POC Glucose 53 L Lactic Acid Calcium Ionized Calcium Phosphorus Magnesium Total Bilirubin AST ALT Alkaline Phosphatase Ammonia Total Creatine Kinase CK-MB (CK-2) CK-MB (CK-2) Rel Index Total Protein Albumin Urine WBC (Auto) 40.0 H Salicylates Acetaminophen Plasma/Serum Alcohol 11/22/19 11/22/19 11/22/19 23:27 23:27 23:27 WBC RBC Hgb Hct MCH RDW Plt Count Lymph % (Auto) [place] % (Auto) [place] # Seg Neutrophils % Seg Neuts % (Manual) Lymphocytes % (Manual) Seg Neutrophils # Seg Neutrophils # Man Lymphocytes # (Manual) Monocytes # (Manual) PT INR APTT ABG pH ABG pO2 ABG HCO3 ABG O2 Saturation ABG Base Excess ABG Hemoglobin Oxyhemoglobin Sodium Potassium 2.4 L* Chloride 85.1 L Carbon Dioxide 19 L BUN Creatinine 0.5 L Glucose 261 H POC Glucose Lactic Acid Calcium Ionized Calcium Phosphorus Magnesium Total Bilirubin AST 609 H ALT 152 H Alkaline Phosphatase 160 H Ammonia 117.0 H Total Creatine Kinase 139 H CK-MB (CK-2) 8.3 H CK-MB (CK-2) Rel Index 5.9 H Total Protein Albumin 3.6 L Urine WBC (Auto) Salicylates < 0.3 L Acetaminophen Plasma/Serum Alcohol 11/22/19 11/22/19 11/23/19 23:27 23:27 01:10 WBC RBC Hgb Hct MCH RDW Plt Count Lymph % (Auto) [place] % (Auto) [place] # Seg Neutrophils % Seg Neuts % (Manual) Lymphocytes % (Manual) Seg Neutrophils # Seg Neutrophils # Man Lymphocytes # (Manual) Monocytes # (Manual) PT INR APTT ABG pH 7.273 L ABG pO2 209.7 H ABG HCO3 ABG O2 Saturation 99.2 H ABG Base Excess -3.9 L ABG Hemoglobin 10.6 L Oxyhemoglobin 93.9 L Sodium Potassium Chloride Carbon Dioxide BUN Creatinine Glucose POC Glucose Lactic Acid Calcium Ionized Calcium Phosphorus Magnesium Total Bilirubin AST ALT Alkaline Phosphatase Ammonia Total Creatine Kinase CK-MB (CK-2) CK-MB (CK-2) Rel Index Total Protein Albumin Urine WBC (Auto) Salicylates Acetaminophen < 5.0 L Plasma/Serum Alcohol 0.08 H 11/23/19 11/23/19 11/23/19 01:19 01:19 03:47 WBC RBC Hgb Hct MCH RDW Plt Count Lymph % (Auto) [place] % (Auto) [place] # Seg Neutrophils % Seg Neuts % (Manual) Lymphocytes % (Manual) Seg Neutrophils # Seg Neutrophils # Man Lymphocytes # (Manual) Monocytes # (Manual) PT 16.3 H INR 1.29 H APTT ABG pH ABG pO2 ABG HCO3 ABG O2 Saturation ABG Base Excess ABG Hemoglobin Oxyhemoglobin Sodium Potassium Chloride Carbon Dioxide BUN Creatinine Glucose POC Glucose Lactic Acid 2.10 H* 5.00 H* Calcium Ionized Calcium Phosphorus Magnesium Total Bilirubin AST ALT Alkaline Phosphatase Ammonia Total Creatine Kinase CK-MB (CK-2) CK-MB (CK-2) Rel Index Total Protein Albumin Urine WBC (Auto) Salicylates Acetaminophen Plasma/Serum Alcohol 11/23/19 11/23/19 11/23/19 03:47 03:47 04:53 WBC RBC Hgb 9.4 L Hct MCH RDW Plt Count Lymph % (Auto) [place] % (Auto) [place] # Seg Neutrophils % Seg Neuts % (Manual) Lymphocytes % (Manual) Seg Neutrophils # Seg Neutrophils # Man Lymphocytes # (Manual) Monocytes # (Manual) PT 17.0 H INR 1.36 H APTT 128.2 H* ABG pH ABG pO2 ABG HCO3 ABG O2 Saturation ABG Base Excess ABG Hemoglobin Oxyhemoglobin Sodium Potassium Chloride Carbon Dioxide 18 L BUN Creatinine 0.5 L Glucose 105 H POC Glucose Lactic Acid Calcium 8.3 L Ionized Calcium Phosphorus 2.40 L Magnesium Total Bilirubin 1.30 H AST 761 H ALT 158 H Alkaline Phosphatase 143 H Ammonia Total Creatine Kinase CK-MB (CK-2) CK-MB (CK-2) Rel Index Total Protein Albumin 2.8 L Urine WBC (Auto) Salicylates Acetaminophen Plasma/Serum Alcohol 11/23/19 11/23/19 11/23/19 05:12 06:32 06:32 WBC 16.8 H RBC 3.31 L Hgb 8.9 L Hct 28.7 L MCH 27 L RDW 18.6 H Plt Count Lymph % (Auto) [place] % (Auto) [place] # Seg Neutrophils % Seg Neuts % (Manual) 94.0 H Lymphocytes % (Manual) 1.0 L Seg Neutrophils # Seg Neutrophils # Man 15.8 H Lymphocytes # (Manual) 0.2 L Monocytes # (Manual) PT INR APTT ABG pH ABG pO2 ABG HCO3 ABG O2 Saturation ABG Base Excess -3.2 L ABG Hemoglobin 9.0 L Oxyhemoglobin 93.6 L Sodium Potassium Chloride Carbon Dioxide BUN Creatinine Glucose POC Glucose Lactic Acid Calcium Ionized Calcium 4.5 L Phosphorus Magnesium Total Bilirubin AST ALT Alkaline Phosphatase Ammonia Total Creatine Kinase CK-MB (CK-2) CK-MB (CK-2) Rel Index Total Protein Albumin Urine WBC (Auto) Salicylates Acetaminophen Plasma/Serum Alcohol 11/23/19 11/24/19 11/24/19 06:32 04:35 04:35 WBC RBC Hgb Hct MCH RDW Plt Count Lymph % (Auto) [place] % (Auto) [place] # Seg Neutrophils % Seg Neuts % (Manual) Lymphocytes % (Manual) Seg Neutrophils # Seg Neutrophils # Man Lymphocytes # (Manual) Monocytes # (Manual) PT INR APTT ABG pH ABG pO2 ABG HCO3 ABG O2 Saturation ABG Base Excess ABG Hemoglobin Oxyhemoglobin Sodium Potassium Chloride Carbon Dioxide BUN Creatinine Glucose POC Glucose Lactic Acid 3.30 H* Calcium Ionized Calcium Phosphorus Magnesium 1.40 L Total Bilirubin AST ALT Alkaline Phosphatase Ammonia 98.0 H Total Creatine Kinase CK-MB (CK-2) CK-MB (CK-2) Rel Index Total Protein Albumin Urine WBC (Auto) Salicylates Acetaminophen Plasma/Serum Alcohol 11/24/19 11/25/19 11/25/19 05:22 04:34 05:05 WBC 17.3 H RBC 2.88 L Hgb 7.8 L Hct 24.6 L MCH 27 L RDW 18.5 H Plt Count Lymph % (Auto) 7.7 L [place] % (Auto) 9.7 H [place] # 1.7 H Seg Neutrophils % 82.2 H Seg Neuts % (Manual) Lymphocytes % (Manual) Seg Neutrophils # 14.2 H Seg Neutrophils # Man Lymphocytes # (Manual) Monocytes # (Manual) PT INR APTT ABG pH 7.475 H ABG pO2 ABG HCO3 29.4 H 32.3 H ABG O2 Saturation ABG Base Excess 5.4 H 6.9 H ABG Hemoglobin 9.0 L 10.6 L Oxyhemoglobin 94.3 L Sodium Potassium Chloride Carbon Dioxide BUN Creatinine Glucose POC Glucose Lactic Acid Calcium Ionized Calcium Phosphorus Magnesium Total Bilirubin AST ALT Alkaline Phosphatase Ammonia Total Creatine Kinase CK-MB (CK-2) CK-MB (CK-2) Rel Index Total Protein Albumin Urine WBC (Auto) Salicylates Acetaminophen Plasma/Serum Alcohol 11/25/19 11/25/19 11/26/19 05:05 22:46 03:31 WBC RBC Hgb Hct MCH RDW Plt Count Lymph % (Auto) [place] % (Auto) [place] # Seg Neutrophils % Seg Neuts % (Manual) Lymphocytes % (Manual) Seg Neutrophils # Seg Neutrophils # Man Lymphocytes # (Manual) Monocytes # (Manual) PT INR APTT ABG pH 7.459 H ABG pO2 ABG HCO3 34.2 H ABG O2 Saturation ABG Base Excess 9.4 H ABG Hemoglobin 7.6 L Oxyhemoglobin 94.8 L Sodium 152 H D 147 H Potassium 2.3 L* D 2.8 L* D Chloride 107.8 H Carbon Dioxide 31 H D 33 H BUN Creatinine 0.6 L 0.6 L Glucose 148 H 177 H POC Glucose Lactic Acid Calcium Ionized Calcium Phosphorus Magnesium Total Bilirubin AST 105 H ALT 71 H Alkaline Phosphatase 155 H Ammonia Total Creatine Kinase CK-MB (CK-2) CK-MB (CK-2) Rel Index Total Protein 5.2 L D Albumin 2.9 L Urine WBC (Auto) Salicylates Acetaminophen Plasma/Serum Alcohol 11/26/19 11/26/19 11/27/19 08:24 08:24 04:20 WBC 12.0 H RBC 3.00 L Hgb 8.0 L 9.3 L Hct 25.9 L 29.7 L MCH 27 L RDW 18.5 H Plt Count Lymph % (Auto) [place] % (Auto) [place] # Seg Neutrophils % Seg Neuts % (Manual) 89.0 H Lymphocytes % (Manual) 4.0 L Seg Neutrophils # Seg Neutrophils # Man 10.7 H Lymphocytes # (Manual) 0.5 L Monocytes # (Manual) PT INR APTT ABG pH ABG pO2 ABG HCO3 ABG O2 Saturation ABG Base Excess ABG Hemoglobin Oxyhemoglobin Sodium 146 H Potassium 3.4 L D Chloride Carbon Dioxide BUN Creatinine 0.5 L Glucose 165 H POC Glucose Lactic Acid Calcium Ionized Calcium Phosphorus Magnesium Total Bilirubin AST 57 H ALT Alkaline Phosphatase 166 H Ammonia Total Creatine Kinase CK-MB (CK-2) CK-MB (CK-2) Rel Index Total Protein Albumin 2.9 L Urine WBC (Auto) Salicylates Acetaminophen Plasma/Serum Alcohol 11/27/19 11/27/19 11/27/19 04:28 04:28 04:42 WBC RBC Hgb Hct MCH RDW Plt Count Lymph % (Auto) [place] % (Auto) [place] # Seg Neutrophils % Seg Neuts % (Manual) Lymphocytes % (Manual) Seg Neutrophils # Seg Neutrophils # Man Lymphocytes # (Manual) Monocytes # (Manual) PT INR APTT ABG pH 7.470 H ABG pO2 74.0 L ABG HCO3 33.8 H ABG O2 Saturation ABG Base Excess 9.1 H ABG Hemoglobin 8.7 L Oxyhemoglobin 94.7 L Sodium 146 H Potassium 2.9 L* Chloride Carbon Dioxide BUN 25 H Creatinine Glucose 213 H POC Glucose Lactic Acid Calcium Ionized Calcium Phosphorus 1.00 L Magnesium Total Bilirubin AST ALT Alkaline Phosphatase Ammonia Total Creatine Kinase CK-MB (CK-2) CK-MB (CK-2) Rel Index Total Protein Albumin Urine WBC (Auto) Salicylates Acetaminophen Plasma/Serum Alcohol 11/27/19 11/27/19 11/27/19 05:37 12:20 15:46 WBC RBC Hgb Hct MCH RDW Plt Count Lymph % (Auto) [place] % (Auto) [place] # Seg Neutrophils % Seg Neuts % (Manual) Lymphocytes % (Manual) Seg Neutrophils # Seg Neutrophils # Man Lymphocytes # (Manual) Monocytes # (Manual) PT INR APTT ABG pH ABG pO2 ABG HCO3 ABG O2 Saturation ABG Base Excess ABG Hemoglobin Oxyhemoglobin Sodium 146 H Potassium 3.5 L D Chloride Carbon Dioxide BUN 24 H Creatinine 0.6 L Glucose 187 H POC Glucose 117 H 220 H Lactic Acid Calcium Ionized Calcium Phosphorus Magnesium Total Bilirubin AST ALT Alkaline Phosphatase Ammonia Total Creatine Kinase CK-MB (CK-2) CK-MB (CK-2) Rel Index Total Protein Albumin Urine WBC (Auto) Salicylates Acetaminophen Plasma/Serum Alcohol 11/27/19 11/28/19 11/28/19 17:28 05:00 05:02 WBC RBC Hgb Hct MCH RDW Plt Count Lymph % (Auto) [place] % (Auto) [place] # Seg Neutrophils % Seg Neuts % (Manual) Lymphocytes % (Manual) Seg Neutrophils # Seg Neutrophils # Man Lymphocytes # (Manual) Monocytes # (Manual) PT INR APTT ABG pH ABG pO2 72.4 L ABG HCO3 33.6 H ABG O2 Saturation 94.1 L ABG Base Excess 7.3 H ABG Hemoglobin Oxyhemoglobin 91.8 L Sodium 146 H Potassium 3.3 L Chloride Carbon Dioxide BUN 25 H Creatinine 0.6 L Glucose 176 H POC Glucose 198 H Lactic Acid Calcium Ionized Calcium Phosphorus Magnesium Total Bilirubin AST ALT Alkaline Phosphatase Ammonia Total Creatine Kinase CK-MB (CK-2) CK-MB (CK-2) Rel Index Total Protein Albumin Urine WBC (Auto) Salicylates Acetaminophen Plasma/Serum Alcohol 11/28/19 11/28/19 11/29/19 05:02 18:55 10:43 WBC 15.2 H 19.0 H RBC 3.06 L 3.01 L Hgb 8.3 L 8.3 L Hct 27.0 L 26.4 L MCH 27 L RDW 19.0 H 19.7 H Plt Count 479 H 611 H Lymph % (Auto) [place] % (Auto) [place] # Seg Neutrophils % Seg Neuts % (Manual) 92.0 H Lymphocytes % (Manual) 2.0 L Seg Neutrophils # Seg Neutrophils # Man 14.0 H Lymphocytes # (Manual) 0.3 L Monocytes # (Manual) PT INR APTT ABG pH ABG pO2 ABG HCO3 ABG O2 Saturation ABG Base Excess ABG Hemoglobin Oxyhemoglobin Sodium Potassium Chloride Carbon Dioxide BUN Creatinine Glucose POC Glucose 138 H Lactic Acid Calcium Ionized Calcium Phosphorus Magnesium Total Bilirubin AST ALT Alkaline Phosphatase Ammonia Total Creatine Kinase CK-MB (CK-2) CK-MB (CK-2) Rel Index Total Protein Albumin Urine WBC (Auto) Salicylates Acetaminophen Plasma/Serum Alcohol 11/29/19 11/29/19 11/29/19 10:43 12:27 19:25 WBC RBC Hgb Hct MCH RDW Plt Count Lymph % (Auto) [place] % (Auto) [place] # Seg Neutrophils % Seg Neuts % (Manual) Lymphocytes % (Manual) Seg Neutrophils # Seg Neutrophils # Man Lymphocytes # (Manual) Monocytes # (Manual) PT INR APTT ABG pH ABG pO2 ABG HCO3 ABG O2 Saturation ABG Base Excess ABG Hemoglobin Oxyhemoglobin Sodium Potassium 2.8 L* Chloride Carbon Dioxide BUN 20 H Creatinine 0.5 L Glucose 121 H POC Glucose 128 H 120 H Lactic Acid Calcium Ionized Calcium Phosphorus Magnesium Total Bilirubin AST ALT Alkaline Phosphatase Ammonia Total Creatine Kinase CK-MB (CK-2) CK-MB (CK-2) Rel Index Total Protein Albumin Urine WBC (Auto) Salicylates Acetaminophen Plasma/Serum Alcohol 11/29/19 11/30/19 11/30/19 23:46 04:10 05:02 WBC RBC Hgb Hct MCH RDW Plt Count Lymph % (Auto) [place] % (Auto) [place] # Seg Neutrophils % Seg Neuts % (Manual) Lymphocytes % (Manual) Seg Neutrophils # Seg Neutrophils # Man Lymphocytes # (Manual) Monocytes # (Manual) PT INR APTT ABG pH ABG pO2 76.3 L ABG HCO3 32.5 H ABG O2 Saturation ABG Base Excess 6.9 H ABG Hemoglobin 8.0 L Oxyhemoglobin 92.6 L Sodium Potassium Chloride Carbon Dioxide BUN Creatinine Glucose POC Glucose 116 H 128 H Lactic Acid Calcium Ionized Calcium Phosphorus Magnesium Total Bilirubin AST ALT Alkaline Phosphatase Ammonia Total Creatine Kinase CK-MB (CK-2) CK-MB (CK-2) Rel Index Total Protein Albumin Urine WBC (Auto) Salicylates Acetaminophen Plasma/Serum Alcohol 11/30/19 11/30/19 11/30/19 05:25 05:25 12:59 WBC 18.4 H RBC 3.10 L Hgb 8.5 L Hct 27.5 L MCH 27 L RDW 20.9 H Plt Count 691 H Lymph % (Auto) 7.1 L [place] % (Auto) 7.7 H [place] # 1.4 H Seg Neutrophils % 83.4 H Seg Neuts % (Manual) Lymphocytes % (Manual) Seg Neutrophils # 15.4 H Seg Neutrophils # Man Lymphocytes # (Manual) Monocytes # (Manual) PT INR APTT ABG pH ABG pO2 ABG HCO3 ABG O2 Saturation ABG Base Excess ABG Hemoglobin Oxyhemoglobin Sodium 146 H Potassium Chloride 107.2 H Carbon Dioxide BUN Creatinine 0.5 L Glucose 132 H POC Glucose 124 H Lactic Acid Calcium Ionized Calcium Phosphorus Magnesium Total Bilirubin AST 246 H ALT 274 H Alkaline Phosphatase 203 H Ammonia Total Creatine Kinase CK-MB (CK-2) CK-MB (CK-2) Rel Index Total Protein 5.4 L Albumin 2.9 L Urine WBC (Auto) Salicylates Acetaminophen Plasma/Serum Alcohol 11/30/19 12/01/19 12/01/19 17:53 00:05 05:10 WBC RBC Hgb Hct MCH RDW Plt Count Lymph % (Auto) [place] % (Auto) [place] # Seg Neutrophils % Seg Neuts % (Manual) Lymphocytes % (Manual) Seg Neutrophils # Seg Neutrophils # Man Lymphocytes # (Manual) Monocytes # (Manual) PT INR APTT ABG pH ABG pO2 ABG HCO3 ABG O2 Saturation ABG Base Excess ABG Hemoglobin Oxyhemoglobin Sodium Potassium Chloride Carbon Dioxide BUN Creatinine Glucose POC Glucose 113 H 143 H 145 H Lactic Acid Calcium Ionized Calcium Phosphorus Magnesium Total Bilirubin AST ALT Alkaline Phosphatase Ammonia Total Creatine Kinase CK-MB (CK-2) CK-MB (CK-2) Rel Index Total Protein Albumin Urine WBC (Auto) Salicylates Acetaminophen Plasma/Serum Alcohol 12/01/19 12/01/19 12/01/19 05:33 08:23 08:23 WBC 22.7 H RBC 2.88 L Hgb 7.9 L Hct 25.2 L MCH 27 L RDW 21.0 H Plt Count 732 H Lymph % (Auto) [place] % (Auto) [place] # Seg Neutrophils % Seg Neuts % (Manual) 91.0 H Lymphocytes % (Manual) 3.0 L Seg Neutrophils # Seg Neutrophils # Man 20.7 H Lymphocytes # (Manual) 0.7 L Monocytes # (Manual) 1.1 H PT INR APTT ABG pH ABG pO2 68.6 L ABG HCO3 34.1 H ABG O2 Saturation ABG Base Excess 9.0 H ABG Hemoglobin 6.5 L Oxyhemoglobin 94.7 L Sodium Potassium Chloride Carbon Dioxide BUN Creatinine 0.5 L Glucose 125 H POC Glucose Lactic Acid Calcium Ionized Calcium Phosphorus Magnesium Total Bilirubin AST ALT Alkaline Phosphatase Ammonia Total Creatine Kinase CK-MB (CK-2) CK-MB (CK-2) Rel Index Total Protein Albumin Urine WBC (Auto) Salicylates Acetaminophen Plasma/Serum Alcohol 12/01/19 12/01/19 12/01/19 13:21 17:54 20:59 WBC RBC Hgb Hct MCH RDW Plt Count Lymph % (Auto) [place] % (Auto) [place] # Seg Neutrophils % Seg Neuts % (Manual) Lymphocytes % (Manual) Seg Neutrophils # Seg Neutrophils # Man Lymphocytes # (Manual) Monocytes # (Manual) PT INR APTT ABG pH ABG pO2 78.3 L ABG HCO3 33.8 H ABG O2 Saturation 94.9 L ABG Base Excess 7.9 H ABG Hemoglobin 11.5 L Oxyhemoglobin 92.3 L Sodium Potassium Chloride Carbon Dioxide BUN Creatinine Glucose POC Glucose 111 H 115 H Lactic Acid Calcium Ionized Calcium Phosphorus Magnesium Total Bilirubin AST ALT Alkaline Phosphatase Ammonia Total Creatine Kinase CK-MB (CK-2) CK-MB (CK-2) Rel Index Total Protein Albumin Urine WBC (Auto) Salicylates Acetaminophen Plasma/Serum Alcohol 12/02/19 12/03/19 12/04/19 12:55 20:00 04:26 WBC 15.2 H RBC 2.69 L Hgb 7.4 L Hct 23.6 L MCH 27 L RDW 19.9 H Plt Count 838 H Lymph % (Auto) [place] % (Auto) [place] # Seg Neutrophils % Seg Neuts % (Manual) Lymphocytes % (Manual) Seg Neutrophils # Seg Neutrophils # Man Lymphocytes # (Manual) Monocytes # (Manual) PT INR APTT ABG pH ABG pO2 68.3 L ABG HCO3 33.5 H ABG O2 Saturation 93.5 L ABG Base Excess 8.4 H ABG Hemoglobin 7.3 L Oxyhemoglobin 90.9 L Sodium Potassium Chloride Carbon Dioxide BUN Creatinine Glucose POC Glucose 107 H Lactic Acid Calcium Ionized Calcium Phosphorus Magnesium Total Bilirubin AST ALT Alkaline Phosphatase Ammonia Total Creatine Kinase CK-MB (CK-2) CK-MB (CK-2) Rel Index Total Protein Albumin Urine WBC (Auto) Salicylates Acetaminophen Plasma/Serum Alcohol 12/04/19 12/04/19 12/04/19 04:26 07:45 12:02 WBC 15.9 H RBC 2.88 L Hgb 7.9 L Hct 25.1 L MCH RDW 20.4 H Plt Count 839 H Lymph % (Auto) 11.3 L [place] % (Auto) 15.2 H [place] # 2.4 H Seg Neutrophils % 72.4 H Seg Neuts % (Manual) Lymphocytes % (Manual) Seg Neutrophils # 11.5 H Seg Neutrophils # Man Lymphocytes # (Manual) Monocytes # (Manual) PT INR APTT ABG pH ABG pO2 ABG HCO3 ABG O2 Saturation ABG Base Excess ABG Hemoglobin Oxyhemoglobin Sodium Potassium Chloride 96.5 L Carbon Dioxide BUN 21 H Creatinine 0.6 L Glucose 107 H POC Glucose 138 H Lactic Acid Calcium Ionized Calcium Phosphorus Magnesium Total Bilirubin AST ALT Alkaline Phosphatase Ammonia Total Creatine Kinase CK-MB (CK-2) CK-MB (CK-2) Rel Index Total Protein Albumin Urine WBC (Auto) Salicylates Acetaminophen Plasma/Serum Alcohol 12/04/19 12/05/19 12/05/19 18:16 11:55 18:36 WBC RBC Hgb Hct MCH RDW Plt Count Lymph % (Auto) [place] % (Auto) [place] # Seg Neutrophils % Seg Neuts % (Manual) Lymphocytes % (Manual) Seg Neutrophils # Seg Neutrophils # Man Lymphocytes # (Manual) Monocytes # (Manual) PT INR APTT ABG pH ABG pO2 ABG HCO3 ABG O2 Saturation ABG Base Excess ABG Hemoglobin Oxyhemoglobin Sodium Potassium Chloride Carbon Dioxide BUN Creatinine Glucose POC Glucose 135 H 125 H 135 H Lactic Acid Calcium Ionized Calcium Phosphorus Magnesium Total Bilirubin AST ALT Alkaline Phosphatase Ammonia Total Creatine Kinase CK-MB (CK-2) CK-MB (CK-2) Rel Index Total Protein Albumin Urine WBC (Auto) Salicylates Acetaminophen Plasma/Serum Alcohol 12/05/19 12/06/19 12/06/19 23:30 04:14 05:43 WBC RBC Hgb Hct MCH RDW Plt Count Lymph % (Auto) [place] % (Auto) [place] # Seg Neutrophils % Seg Neuts % (Manual) Lymphocytes % (Manual) Seg Neutrophils # Seg Neutrophils # Man Lymphocytes # (Manual) Monocytes # (Manual) PT INR APTT ABG pH ABG pO2 ABG HCO3 ABG O2 Saturation ABG Base Excess ABG Hemoglobin Oxyhemoglobin Sodium Potassium 5.6 H Chloride 95.0 L Carbon Dioxide BUN 48 H Creatinine 1.3 H D Glucose POC Glucose 126 H 121 H Lactic Acid Calcium Ionized Calcium Phosphorus Magnesium Total Bilirubin AST 89 H ALT 98 H Alkaline Phosphatase 476 H Ammonia Total Creatine Kinase CK-MB (CK-2) CK-MB (CK-2) Rel Index Total Protein Albumin 2.8 L Urine WBC (Auto) Salicylates Acetaminophen Plasma/Serum Alcohol 12/06/19 12/06/19 12/07/19 10:39 14:34 00:19 WBC 17.3 H RBC 2.60 L Hgb 7.1 L Hct 22.7 L MCH 27 L RDW 20.1 H Plt Count 832 H Lymph % (Auto) [place] % (Auto) [place] # Seg Neutrophils % Seg Neuts % (Manual) Lymphocytes % (Manual) Seg Neutrophils # Seg Neutrophils # Man Lymphocytes # (Manual) Monocytes # (Manual) PT INR APTT ABG pH ABG pO2 ABG HCO3 ABG O2 Saturation ABG Base Excess ABG Hemoglobin Oxyhemoglobin Sodium Potassium Chloride Carbon Dioxide BUN Creatinine Glucose POC Glucose 128 H 136 H Lactic Acid Calcium Ionized Calcium Phosphorus Magnesium Total Bilirubin AST ALT Alkaline Phosphatase Ammonia Total Creatine Kinase CK-MB (CK-2) CK-MB (CK-2) Rel Index Total Protein Albumin Urine WBC (Auto) Salicylates Acetaminophen Plasma/Serum Alcohol 12/07/19 12/07/19 12/07/19 03:44 03:44 05:53 WBC 16.2 H RBC 2.56 L Hgb 7.1 L Hct 22.3 L MCH RDW 19.4 H Plt Count 782 H Lymph % (Auto) [place] % (Auto) [place] # Seg Neutrophils % Seg Neuts % (Manual) Lymphocytes % (Manual) Seg Neutrophils # Seg Neutrophils # Man Lymphocytes # (Manual) Monocytes # (Manual) PT INR APTT ABG pH ABG pO2 ABG HCO3 ABG O2 Saturation ABG Base Excess ABG Hemoglobin Oxyhemoglobin Sodium Potassium Chloride 95.6 L Carbon Dioxide BUN 56 H Creatinine 1.4 H Glucose 120 H POC Glucose 128 H Lactic Acid Calcium 10.3 H Ionized Calcium Phosphorus Magnesium Total Bilirubin AST ALT Alkaline Phosphatase Ammonia Total Creatine Kinase CK-MB (CK-2) CK-MB (CK-2) Rel Index Total Protein Albumin Urine WBC (Auto) Salicylates Acetaminophen Plasma/Serum Alcohol Allied health notes reviewed: RT
[2019-12-07] MEDS: LANSOPRAZOLE 30 MG SOLUTAB FEEDTUBE SCH (10:00)
[2019-12-07] MEDS: MIRTAZAPINE 30 MG TAB PO SCH (10:00)
[2019-12-07] MEDS: SERTRALINE 25 MG TAB PO SCH (10:00)
[2019-12-07] MEDS: hydrOXYzine PAMOATE 25 MG CAP PO SCH ×2 (10:00→21:52)
[2019-12-07] MEDS: HEPARIN 5,000 UNIT/1 ML VIAL SUB-Q SCH ×2 (10:00→21:52)
[2019-12-07] MEDS: QUEtiapine 100 MG TAB PO SCH ×2 (10:00→21:52)
[2019-12-07] MEDS: levETIRAcetam 500 MG/5 ML ORAL LIQD PO SCH ×2 (10:06→21:51)
--- NOTE | 2019-12-07 12:06 | XRay Report ---
ABDOMEN 1 VIEW HISTORY: abdominal distention. COMPARISON: None. FINDINGS: Lung bases are clear. A nasogastric tube tip is to the right of this mid spine and appears to be in satisfactory position. A large volume of stool in the right colon and the splenic flexure a nd proximal descending colon. Moderate distention of the transverse colon and splenic flexure of the colon. Minimal distal colon gas and minimal rectal gas. No small bowel distention. No signs of free a ir. IMPRESSION: Nonspecific distention of the colon with a large volume of stool. No evidence of small sebastian wel obstruction or perforation. Signer Name: Herson Llanes MD Signed: 12/07/2019 12:02 PM Workstation Name: [id number]
--- NOTE | 2019-12-07 13:51 | Progress Note ---
Assessment and Plan Cultures: 11/22/2019 urine culture:no significant growth 11/22/2019 tracheal aspirate culture: H. influenzae 11/23/2019 blood culture: No growth A/P: 54-year-old female with hypertension, depression, tobacco use, alcohol abuse was brought into the emergency room on 11/22/2019 after she went into respiratory arrest at home requiring CPR by EMS: #Sepsis: Source could be UTI versus pneumonitis versus SBP. UA showed pyuria. RUQ US showed no ascites. Completed 7 days of Ceftriaxone on 11/29/2019. #Pneumonitis, acute respiratory failure: Possibly aspiration. No pneumonia seen. On mechanical ventilation. #Elevated LFTs, alcohol abuse, status post arrest requiring CPR: Trend LFTs. RUQ US showed no ascites. #Acute encephalopathy: Likely multifactorial from alcohol abuse, status post arrest, electrolyte abnormalities. #Diarrhea: likely combination of tube feeds and lactulose. Recs: continue off abx trend CBC and LFTs In the absence of new symptoms or vital sign derangements, new fevers could be potentially due to central fevers. overall guarded prognosis We will sign off for now, please call us if any new questions arise. Freddy Plata MD [facility] M: [phone] O: [phone] F: [phone] Subjective Date of service: 12/07/19 Principal diagnosis: Ac cardiopulmonary arrest; Ac hypoxemic resp failure; Acute encephalopathy Interval history: Afebrile, with a persistently elevated white count. No acute status change this time. Objective - Exam Narrative Exam: Constitutional: comatose, intubated Head, Ears, Nose: Normocephalic, atraumatic. Eyes: Conjunctivae/corneas clear. Neck: intubated Oral: intubated Cardiovascular: S1, S2 normal Respiratory: Good air entry, clear to auscultation bilaterally GI: slightly distended, bowel sounds present. Rectal tube present with liquid stool Musculoskeletal: No pedal edema, no cyanosis. Skin: No rash or abscess Hem/Lymphatic: No palpable cervical or supraclavicular nodes. No lymphangitis Psych: no agitation. Neurological: comatose, intubated, on vent - Constitutional Vitals: Vital Signs Temp Pulse Resp BP Pulse Ox 98.4 F 122 H 13 132/84 95 12/07/19 03:23 12/07/19 12:00 12/07/19 12:00 12/07/19 12:00 12/07/19 12:00 Temperature -Last 24 Hours Temperature 98.4 F Temperature 98 F Temperature 98.1 F Temperature 98.8 F - Labs CBC & Chem 7: 12/07/19 03:44 12/07/19 03:44 Labs: Abnormal lab results 12/06/19 12/07/19 12/07/19 Range/Units 14:34 00:19 03:44 WBC 16.2 H (4.5-11.0) K/mm3 RBC 2.56 L (3.65-5.03) M/mm3 Hgb 7.1 L (10.1-14.3) gm/dl Hct 22.3 L (30.3-42.9) % RDW 19.4 H (13.2-15.2) % Plt Count 782 H (140-440) K/mm3 Chloride (98-107) mmol/L BUN (7-17) mg/dL Creatinine (0.7-1.2) mg/dL Glucose (65-100) mg/dL POC Glucose 128 H 136 H (70-105) Calcium (8.4-10.2) mg/dL 12/07/19 12/07/19 12/07/19 Range/Units 03:44 05:53 12:54 WBC (4.5-11.0) K/mm3 RBC (3.65-5.03) M/mm3 Hgb (10.1-14.3) gm/dl Hct (30.3-42.9) % RDW (13.2-15.2) % Plt Count (140-440) K/mm3 Chloride 95.6 L (98-107) mmol/L BUN 56 H (7-17) mg/dL Creatinine 1.4 H (0.7-1.2) mg/dL Glucose 120 H (65-100) mg/dL POC Glucose 128 H 128 H (70-105) Calcium 10.3 H (8.4-10.2) mg/dL
--- NOTE | 2019-12-07 14:32 | Event Note ---
Date: 12/07/19 Pt chart reviewed. Spoke with patient's Mother, Anh Jesus regarding trach/PEG and to follow up with her about the decision to proceed with procedures. She states that she will have to discuss this more with her family over the weekend. I explained that if they decided against trach/peg, they may consider hospice another option. She had some questions about hospice and I have deferred to NAM Flores. I discussed this with NAM Flores. Will follow up on Tuesday.
[2019-12-07] MEDS: fentaNYL 25 MCG/HR PATCH 72HR TD SCH (16:07)
--- NOTE | 2019-12-07 19:05 | Progress Note ---
Assessment and Plan Assessment and plan: 54-year-old female with a past medical history of Hypertension, Depression, Tobacco use Disorder, Alcohol use Disorder as confirmed by Daughter and pt's mother presents to the hospital status post cardiac arrest. Patient is from home and family called EMS at 22: 27 for the pt who had told family members that she was not feeling good and c/o her chronic hip pain. She urinated and then was speaking, then she " froze and was rigid " per daughter and she became unresponsive and stopped breathing. Immediately, family began CPR. EMS found pt in PEA. Upon their arrival patient in SinuS Tachycardia.. They were unable to intubate patient with a ET tube because she was clenching down therefore Joe airway placed. Patient received Narcan and Epinephrine. Patient's rhythm changed to PEA to sinus bradycardia, to PEA, then to sinus tach after receiving Narcan and Epinephrine. Per the ED physician who evaluated pt, Patient presented with a pulse, intermittent respirations, and bagging support via Joe airway with O2 sat of 100%. Accu-Chek of [address] Rodriguez spoke to patient's family (daughter and mother). MOther is Anh Jesus- [phone] and she would like to be called about pt's progress or notified about the pt. No seizure activity was noted. They deny that patient brown d any preceding infection symptoms, cough, fever, complaints of chest pain, shortness of breath, or any bleeding diathesis, melena, hematochezia, hematuria, hematemesis, or abdominal pain. Patient is a known alcoholic and continues to drink per daughter. No history could be obtained from the pt due to her mechanical ventilation. No previous hx of DVT/PE per mother and daughter. 12/04: Patient failed CPAP trial became apneic according to documentation. 12/05: No clinical change, continue current management, monitor H/H 12/06: Awaiting labs. No new changes at this time opens eyes. Surgeon discussed trach and PEG with family but they want to get more information about hospice which they have been directed to the manager of case management. Acute respiratory failure with hypoxia Seizure disorder Presumed anoxic brain injury Alcohol abuse Acute metabolic encephalopathy/toxic encephalopathy Hypertension Status post cardiac arrest Distended abodmen, NGT to suction Transaminitis Acute cystitis Metabolic acidosis/alcoholic acidosis/lactic acidosis Sepsis Ischemic hepatitis Plan Continue Keppra at this time. RE-eval by neurology, no clinical change PEG and Trach being planned for If aggressive treatment is still sought after despite discussion with neurologist will proceed with PEG and trach. Will discuss with pulmonary this morning considering patient's apneic status f ollowing CPAP trial. Patient was on restraints as she gets agitated when off sedation. Precedex was added yesterday. And Librium was increased to 50 mg every 8 hours. Patient had intact corneal and cough reflex and withdrew to pain lower extremity initially although out of hospital cardiac arrest was noted. It is less likely that this patient will have any meaningful recovery following extubation. Continue to monitor LFTs She is on antibiotics and this completed a few days 11/29/2019 ago no growth was noted on cultures no fever. We will continue off antibiotics at this time. Restraints Poor prognosis The high probability of a clinically significant, sudden or life threatening deterioration of the [pulmonary, neurology] system(s) required my full and direct attention, intervention and personal management. The aggregate critical care time was [35] minutes. This time is in addition to time spent performing reported procedures but includes the following: [v] Data Review and interpretation (v) Patient assessment and monitoring of vital signs [v] Documentation [v] Medication orders and management History Interval history: Patient seen and examined, remains unresponsive and on full respiratory support, No clinical change. Family holding off on trach and PEG want to discuss a little bit more about hospice per surgeons discussion with family. Hospitalist Physical - Physical exam Narrative exam: General appearance: Present: no acute distress, other (on vent with sedation, elderly female), eyes opens but not following any commands but unresponsive - EENT ENT: no oropharyngeal erythema, no poor dentition, no thrush - Neck Neck: Present: supple - Respiratory Respiratory effort: normal Respiratory: bilateral: diminished (On ventilator.) - Cardiovascular Rhythm: regular Heart Sounds: Absent: systolic murmur, diastolic murmur - Extremities Extremities: no ischemia, pulses intact, pulses symmetrical, normal temperature, normal color Extremity abnormal: edema Peripheral Pulses: within normal limits - Abdominal General gastrointestinal: deferred, non-tender, distended, hypoactive bowel sounds - Integumentary Integumentary: Present: clear, warm, dry Neuro: Unresponsive, tongue protruding. - Constitutional Vitals: Temp Pulse Resp BP Pulse Ox 98.8 F 106 H 16 138/89 99 03/20/20 16:00 12/07/19 18:30 12/07/19 18:30 12/07/19 18:30 12/07/19 18:30 General appearance: Present: no acute distress, other (on vent with sedation, elderly female) Results - Labs CBC & Chem 7: 12/07/19 03:44 12/07/19 03:44 Labs: Laboratory Last Values WBC 16.2 K/mm3 (4.5-11.0) H 12/07/19 03:44 RBC 2.56 M/mm3 (3.65-5.03) L 12/07/19 03:44 Hgb 7.1 gm/dl (10.1-14.3) L 12/07/19 03:44 Hct 22.3 % (30.3-42.9) L 12/07/19 03:44 MCV 87 fl (79-97) 12/07/19 03:44 MCH 28 pg (28-32) 12/07/19 03:44 MCHC 32 % (30-34) 12/07/19 03:44 RDW 19.4 % (13.2-15.2) H 12/07/19 03:44 Plt Count 782 K/mm3 (140-440) H 12/07/19 03:44 Lymph % (Auto) 11.3 % (13.4-35.0) L 12/04/19 07:45 [place] % (Auto) 15.2 % (0.0-7.3) H 12/04/19 07:45 Eos % (Auto) 0.5 % (0.0-4.3) 12/04/19 07:45 Baso % (Auto) 0.6 % (0.0-1.8) 12/04/19 07:45 Lymph # 1.8 K/mm3 (1.2-5.4) 12/04/19 07:45 [place] # 2.4 K/mm3 (0.0-0.8) H 12/04/19 07:45 Eos # 0.1 K/mm3 (0.0-0.4) 12/04/19 07:45 Baso # 0.1 K/mm3 (0.0-0.1) 12/04/19 07:45 Add Manual Diff Complete 12/04/19 07:45 Total Counted 100 12/01/19 08:23 Seg Neutrophils % 72.4 % (40.0-70.0) H 12/04/19 07:45 Seg Neuts % (Manual) 91.0 % (40.0-70.0) H 12/01/19 08:23 Band Neutrophils % 0 % 12/01/19 08:23 Lymphocytes % (Manual) 3.0 % (13.4-35.0) L 12/01/19 08:23 Reactive Lymphs % (Man) 1.0 % 12/01/19 08:23 Monocytes % (Manual) 5.0 % (0.0-7.3) 12/01/19 08:23 Eosinophils % (Manual) 0 % (0.0-4.3) 12/01/19 08:23 Basophils % (Manual) 0 % (0.0-1.8) 12/01/19 08:23 Metamyelocytes % 0 % 12/01/19 08:23 Myelocytes % 0 % 12/01/19 08:23 Promyelocytes % 0 % 12/01/19 08:23 Blast Cells % 0 % 12/01/19 08:23 Nucleated RBC % Not Reportable 12/01/19 08:23 Seg Neutrophils # 11.5 K/mm3 (1.8-7.7) H 12/04/19 07:45 Seg Neutrophils # Man 20.7 K/mm3 (1.8-7.7) H 12/01/19 08:23 Band Neutrophils # 0.0 K/mm3 12/01/19 08:23 Lymphocytes # (Manual) 0.7 K/mm3 (1.2-5.4) L 12/01/19 08:23 Abs React Lymphs (Man) 0.2 K/mm3 12/01/19 08:23 Monocytes # (Manual) 1.1 K/mm3 (0.0-0.8) H 12/01/19 08:23 Eosinophils # (Manual) 0.0 K/mm3 (0.0-0.4) 12/01/19 08:23 Basophils # (Manual) 0.0 K/mm3 (0.0-0.1) 12/01/19 08:23 Metamyelocytes # 0.0 K/mm3 12/01/19 08:23 Myelocytes # 0.0 K/mm3 12/01/19 08:23 Promyelocytes # 0.0 K/mm3 12/01/19 08:23 Blast Cells # 0.0 K/mm3 12/01/19 08:23 WBC Morphology Not Reportable 12/01/19 08:23 Hypersegmented Neuts Not Reportable 12/01/19 08:23 Hyposegmented Neuts Not Reportable 12/01/19 08:23 Hypogranular Neuts Not Reportable 12/01/19 08:23 Smudge Cells Not Reportable 12/01/19 08:23 Toxic Granulation Not Reportable 12/01/19 08:23 Toxic Vacuolation Not Reportable 12/01/19 08:23 Dohle Bodies Not Reportable 12/01/19 08:23 Pelger-Huet Anomaly Not Reportable 12/01/19 08:23 Dominique Rods Not Reportable 12/01/19 08:23 Platelet Estimate Consistent w auto 12/01/19 08:23 Clumped Platelets Not Reportable 12/01/19 08:23 Plt Clumps, EDTA Not Reportable 12/01/19 08:23 Large Platelets Not Reportable 12/01/19 08:23 Giant Platelets Few 12/01/19 08:23 Platelet Satelliting Not Reportable 12/01/19 08:23 Plt Morphology Comment Not Reportable 12/01/19 08:23 RBC Morphology Not Reportable 12/01/19 08:23 Dimorphic RBCs Not Reportable 12/01/19 08:23 Polychromasia Few 12/01/19 08:23 Hypochromasia Few 12/01/19 08:23 Poikilocytosis Not Reportable 12/01/19 08:23 Anisocytosis Not Reportable 12/01/19 08:23 Microcytosis Not Reportable 12/01/19 08:23 Macrocytosis Not Reportable 12/01/19 08:23 Spherocytes Not Reportable 12/01/19 08:23 Pappenheimer Bodies Not Reportable 12/01/19 08:23 Sickle Cells Not Reportable 12/01/19 08:23 Target Cells 1+ 12/01/19 08:23 Tear Drop Cells Not Reportable 12/01/19 08:23 Ovalocytes Not Reportable 12/01/19 08:23 Helmet Cells Not Reportable 12/01/19 08:23 [place] Bodies Not Reportable 12/01/19 08:23 Exchange Rings Not Reportable 12/01/19 08:23 Howard Cells Not Reportable 12/01/19 08:23 Bite Cells Not Reportable 12/01/19 08:23 Crenated Cell Not Reportable 12/01/19 08:23 Elliptocytes Not Reportable 12/01/19 08:23 Acanthocytes (Spur) Not Reportable 12/01/19 08:23 Rouleaux Not Reportable 12/01/19 08:23 Hemoglobin C Crystals Not Reportable 12/01/19 08:23 Schistocytes Not Reportable 12/01/19 08:23 Malaria parasites Not Reportable 12/01/19 08:23 Gregg Bodies Not Reportable 12/01/19 08:23 Hem Pathologist Commnt No 12/01/19 08:23 PT 17.0 Sec. (12.2-14.9) H 11/23/19 03:47 INR 1.36 (0.87-1.13) H 11/23/19 03:47 APTT 128.2 Sec. (24.2-36.6) H* 11/23/19 03:47 Heparin Anti-Xa Level 0.31 U.I./ml (0.3-0.7) 11/23/19 09:03 ABG pH 7.437 pH Units (7.350-7.450) 12/03/19 20:00 ABG pCO2 50.7 mm Hg 12/03/19 20:00 ABG pO2 68.3 mm Hg (80.0-90.0) L 12/03/19 20:00 ABG HCO3 33.5 mmol/L (20.0-26.0) H 12/03/19 20:00 ABG O2 Saturation 93.5 % (95.0-99.0) L 12/03/19 20:00 ABG O2 Content 9.5 (0.0-44) 12/03/19 20:00 ABG Base Excess 8.4 mmol/L (-2.0-3.0) H 12/03/19 20:00 ABG Hemoglobin 7.3 gm/dl (12.0-16.0) L 12/03/19 20:00 ABG Carboxyhemoglobin 2.3 % (0.0-5.0) 12/03/19 20:00 ABG Methemoglobin 0.4 % (0.0-1.5) 12/03/19 20:00 Oxyhemoglobin 90.9 % (95.0-99.0) L 12/03/19 20:00 FiO2 30 % 12/03/19 20:00 Sodium 141 mmol/L (137-145) 12/07/19 03:44 Potassium 4.8 mmol/L (3.6-5.0) 12/07/19 03:44 Chloride 95.6 mmol/L (98-107) L 12/07/19 03:44 Carbon Dioxide 29 mmol/L (22-30) 12/07/19 03:44 Anion Gap 21 mmol/L 12/07/19 03:44 BUN 56 mg/dL (7-17) H 12/07/19 03:44 Creatinine 1.4 mg/dL (0.7-1.2) H 12/07/19 03:44 Estimated GFR 47 ml/min 12/07/19 03:44 BUN/Creatinine Ratio 40 % 12/07/19 03:44 Glucose 120 mg/dL (65-100) H 12/07/19 03:44 POC Glucose 128 (70-105) H 12/07/19 12:54 Lactic Acid 1.80 mmol/L (0.7-2.0) 11/25/19 05:05 Calcium 10.3 mg/dL (8.4-10.2) H 12/07/19 03:44 Ionized Calcium 4.5 mg/dL (4.8-5.6) L 11/23/19 06:32 Phosphorus 4.20 mg/dL (2.5-4.5) D 11/28/19 08:59 Magnesium 2.30 mg/dL (1.7-2.3) 11/29/19 13:41 Total Bilirubin 0.60 mg/dL (0.1-1.2) 12/06/19 04:14 AST 89 units/L (5-40) H 12/06/19 04:14 ALT 98 units/L (7-56) H 12/06/19 04:14 Alkaline Phosphatase 476 units/L (35-129) H 12/06/19 04:14 Ammonia 42.0 umol/L (25-60) 11/29/19 13:41 Total Creatine Kinase 139 units/L (30-135) H 11/22/19 23:27 CK-MB (CK-2) 8.3 ng/mL (0.0-4.0) H 11/22/19 23:27 CK-MB (CK-2) Rel Index 5.9 (0-4) H 11/22/19 23:27 Troponin T < 0.010 ng/mL (0.00-0.029) 11/22/19 23:27 Total Protein 7.3 g/dL (6.3-8.2) 12/06/19 04:14 Albumin 2.8 g/dL (3.9-5) L 12/06/19 04:14 Albumin/Globulin Ratio 0.6 % 12/06/19 04:14 Lipase 18 units/L (13-60) 11/23/19 00:34 Procalcitonin 1.09 ng/mL (<0.15) 11/23/19 04:53 Urine Color Yellow (Yellow) 11/22/19 23:17 Urine Turbidity Cloudy (Clear) 11/22/19 23:17 Urine pH 6.0 (5.0-7.0) 11/22/19 23:17 Ur Specific [place] 1.010 (1.003-1.030) 11/22/19 23:17 Urine Protein >500 mg/dL (Negative) 11/22/19 23:17 Urine Glucose (UA) >=500 mg/dL (Negative) 11/22/19 23:17 Urine Ketones 20 mg/dL (Negative) 11/22/19 23:17 Urine Blood Mod (Negative) 11/22/19 23:17 Urine Nitrite Neg (Negative) 11/22/19 23:17 Urine Bilirubin Neg (Negative) 11/22/19 23:17 Urine Urobilinogen 4.0 mg/dL (<2.0) 11/22/19 23:17 Ur Leukocyte Esterase Neg (Negative) 11/22/19 23:17 Urine WBC (Auto) 40.0 /HPF (0.0-6.0) H 11/22/19 23:17 Urine RBC (Auto) 10.0 /HPF (0.0-6.0) 11/22/19 23:17 U Epithel Cells (Auto) 1.0 /HPF (0-13.0) 11/22/19 23:17 Urine Bacteria (Auto) 2+ /HPF (Negative) 11/22/19 23:17 Urine Mucus Few /HPF 11/22/19 23:17 Salicylates < 0.3 mg/dL (2.8-20.0) L 11/22/19 23:27 Urine Opiates Screen Presumptive negative 11/22/19 23:17 Urine Methadone Screen Presumptive negative 11/22/19 23:17 Acetaminophen < 5.0 ug/mL (10.0-30.0) L 11/22/19 23:27 Ur Barbiturates Screen Presumptive negative 11/22/19 23:17 Ur Phencyclidine Scrn Presumptive negative 11/22/19 23:17 Ur Amphetamines Screen Presumptive negative 11/22/19 23:17 U Benzodiazepines Scrn Presumptive negative 11/22/19 23:17 Urine Cocaine Screen Presumptive negative 11/22/19 23:17 U Marijuana (THC) Screen Presumptive negative 11/22/19 23:17 Drugs of Abuse Note Disclamer 11/22/19 23:17 Plasma/Serum Alcohol 0.08 % (0-0.07) H 11/22/19 23:27 Hepatitis A IgM Ab Non-reactive (NonReactive) 11/23/19 01:19 Hep Bs Antigen Non-reactive (Negative) 11/23/19 01:19 Hep B Core IgM Ab Non-reactive (NonReactive) 11/23/19 01:19 Hepatitis C Antibody Non-reactive (NonReactive) 11/23/19 01:19 - Diagnostic Impressions Diagnostic Impressions: Echocardiogram 11/23/19 03:58 Transthoracic Echocardiogram Indication: Cardiac arrest BP: 131/89 HR: 115 Conclusions *The study quality is technically difficult. *Global left ventricular wall motion and contractility are within normal limits. *The estimated ejection fraction is 55-60%. *Abnormal left ventricular diastolic filling is observed, consistent with impaired relaxation. *There is no pericardial effusion. Findings Procedure Info: The study quality is technically difficult. The study was technically limited due to the patient's inability to lay in the left lateral decubitus position. Left Ventricle: The left ventricular chamber size is normal. There is no left ventricular hypertrophy. Global left ventricular wall motion and contractility are within normal limits. Global left ventricular systolic function is normal. The estimated ejection fraction is 55-60%. Abnormal left ventricular diastolic filling is observed, consistent with impaired relaxation. Left Atrium: The left atrial chamber size is normal. Aortic Valve: The aortic valve leaflets are mildly thickened. Mitral Valve: The mitral valve leaflets are mildly thickened. There is no evidence of mitral regurgitation. Tricuspid Valve: The tricuspid valve leaflets are normal. There is trace tricuspid regurgitation. The right ventricular systolic pressure is calculated at 33 mmHg. Pulmonic Valve: The pulmonic valve appears normal. Pericardium: The pericardium appears normal. There is no pericardial effusion. Aorta: The aorta appears normal. Venous: The inferior vena cava appears normal in size. Measurements Chambers 2D Name Value Normal Range IVSd (2D) 0.94 cm (0.6 - 1.1) LVPWd (2D) 0.81 cm (0.6 - 1.1) LVIDd (2D) 3.6 cm (3.7 - 5.6) LVIDs (2D) 2.27 cm (2 - 3.8) LV FS (2D) 36.93 % - EF Teichholz (2D) 67.76 % - Ao root diameter (2D) 3.03 cm (2 - 3.7) Volumes/Mass Name Value Normal Range LA ESV SP 4CH (A/L) 16.89 ml - LA ESV SP 4CH (MOD) 15.52 ml - Diastolic/Systolic Function Name Value Normal Range MV E-wave Vmax 0.55 m/sec - MV deceleration time 200.89 msec - MV A-wave Vmax 0.68 m/sec - MV E:A ratio 0.82 ratio - Aortic Valve Name Value Normal Range AV Vmax 1.1 m/sec - AV VTI 15.9 cm - AV peak gradient 4.86 mmHg - AV mean gradient 2.59 mmHg - LVOT diameter 2 cm - LVOT Vmax 1.03 m/sec - LVOT VTI 15.87 cm - LVOT peak gradient 4.24 mmHg - LVOT mean gradient 2.41 mmHg - SV LVOT 49.77 ml - JOSÉ MIGUEL (continuity Vmax) 2.93 cm2 - JOSÉ MIGUEL (continuity VTI) 3.13 cm2 - Tricuspid Valve Name Value Normal Range TR Vmax 2.74 m/sec - TR peak gradient 303 mmHg - RAP 3 mmHg - RVSP 33 mmHg - IVC diameter 1.77 cm (1.2 - 2.3) Pulmonic Valve/Qp:Qs Name Value Normal Range PV Vmax 0.77 m/sec - PV peak gradient 2.4 mmHg - PV acceleration time 114.18 msec - Dela Cruz/IV: Voiding Method External Female Catheter IV Catheter Type [Right Wrist] Peripheral IV IV Catheter Type [Left Wrist] Peripheral IV IV Catheter Type [Left Peripheral IV Antecubital] IV Catheter Type [Right INT / Saline Lock Forearm] IV Catheter Type [Left Hand] Peripheral IV Active Medications - Current Medications Current Medications: Generic Name Dose Route Start Last Admin Trade Name Freq PRN Reason Stop Dose Admin Acetaminophen 650 mg 12/06/19 10:25 12/06/19 11:22 Tylenol FEEDTUBE 650 mg Q6H PRN Administration TEMP >/=100.3 Lipase/Protease/Amylase 1 each 11/23/19 11:[address] 10,500 Unit FEEDTUBE PRN PRN For Clogged Feeding Tube Chlordiazepoxide HCl 50 mg 12/04/19 14:00 12/07/19 16:07 Librium PO 50 mg Q8H LUCHO Administration Fentanyl 25 mcg 12/04/19 17:00 12/07/19 16:07 Duragesic TD 25 mcg Q3D LUCHO Administration Fentanyl 50 mcg 12/05/19 02:10 Sublimaze IV Q10MIN PRN ANALGESIA Heparin Sodium (Porcine) 5,000 unit 11/23/19 22:00 12/07/19 10:00 Heparin SUB-Q 5,000 unit Q12HR LUCHO Administration Hydralazine HCl 10 mg 11/24/19 00:45 11/28/19 08:56 Apresoline IV 10 mg Q6H PRN Administration SBP > 160 Hydrophilic Ointment 1 applic 11/22/19 23:23 Vaseline Lip Therapy TP Q2HR PRN Dry Lips Hydroxyzine Pamoate 25 mg 12/06/19 10:00 12/07/19 10:00 Vistaril PO 25 mg BID LUCHO Administration Fentanyl Citrate 2,000 mcg in 100 mls @ 2.74 mls/hr 12/05/19 03:00 12/06/19 20:33 Fentanyl Drip Premix IV 2 mcg/kg/hr TITR LUCHO 5.48 mls/hr Administration Protocol 1 MCG/KG/HR Lansoprazole 30 mg 11/27/19 10:00 12/07/19 10:00 Prevacid Solutab FEEDTUBE 30 mg QDAY LUCHO Administration Levetiracetam 500 mg 11/29/19 10:00 12/07/19 10:06 Keppra PO 500 mg BID LUCHO Administration Lorazepam 2 mg 11/26/19 11:09 12/05/19 01:09 Ativan IV 2 mg Q4H PRN Administration Agitation Mirtazapine 30 mg 12/06/19 10:00 12/07/19 10:00 Remeron PO 30 mg DAILY LUCHO Administration Multi-Ingred Cream/Lotion/Oil/Oint 1 applic 11/22/19 23:23 Artificial Tears Ophth Oint OU Q4HR PRN Dry Eye(s) Quetiapine Fumarate 300 mg 12/07/19 22:00 Seroquel PO QHS LUCHO Sertraline HCl 25 mg 12/06/19 10:00 12/07/19 10:00 Zoloft PO 25 mg QDAY LUCHO Administration Simple Syrup 15 ml 11/23/19 11:50 Simple Syrup FEEDTUBE PRN PRN Hypoglycemia Simple Syrup 30 ml 11/23/19 11:50 Simple Syrup FEEDTUBE PRN PRN Hypoglycemia Sodium Bicarbonate 325 mg 11/23/19 11:50 Sodium Bicarbonate FEEDTUBE PRN PRN For Clogged Feeding Tube Nutrition/Malnutrition Assess - Dietary Evaluation Nutrition/Malnutrition Findings: Nutrition Notes Start: 11/23/19 11:29 Freq: Status: Active Protocol: Document 12/05/19 13:24 LM (Rec: 12/05/19 13:26 LM [id number]) Nutrition Notes Initial or Follow up Reassessment Current Diagnosis Hypertension Other Pertinent Diagnosis Cardaic arrest, ETOH dependence, UTI Current Diet Vital AF 1.2 at 50 ml/hr Labs/Tests 12/03 Na 140 Pertinent Medications Reviewed Height 5 ft 6 in Weight 54.8 kg [place] Body Weight (kg) 59.09 BMI 19.5 Subjective/Other Information Vital running at 50 ml/hr. pt tolerating. Percent of energy/protein needs met: 100%/100% Burn Absent Trauma Absent GI Symptoms None Current % PO Negligible Minimum of two criteria No Muscle Mass Mild Depletion (non-severe) #1 Nutrition Diagnosis Inadequate oral intake Diagnosis Progress(for reassessment Continues documentation) Is patient on ventilator? Yes Is Patient Ambulatory and/or Out of Bed No REE-([facility]-confined to bed) 1402.224 Calculation Used for Recommendations [facility] Additional Notes Protein: 66-110g (1.2-2g/kg) Fluid: 1 ml/kcal Nutrition Intervention Change Diet Order: TF Nutrition Support: Vital AF 1.2 at 50 ml/hr Flush 200 ml q4h for hypernatremia Flush 80 ml q4h once hypernatremia resolves Kcal 1,440 Protein (gm) 90 Fluid (mL) 973 Goal #1 TF tolerance Goal #2 Meet at least 80% of energy and protein needs via TF Anticipated Discharge Needs: unable to determine at this time Follow-Up By: 12/12/19 Additional Comments F/U for TF tolerance
[2019-12-08] MEDS: hydrALAZINE 20 MG/1 ML INJ IV PRN (05:51)
[2019-12-08] MEDS: chlordiazePOXIDE 25 MG CAP PO SCH ×2 (05:52→13:57)
[2019-12-08] MEDS: LORazepam 2 MG/ML VIAL IV PRN (08:02)
[2019-12-08] MEDS: SERTRALINE 25 MG TAB PO SCH (10:52)
[2019-12-08] MEDS: LANSOPRAZOLE 30 MG SOLUTAB FEEDTUBE SCH (10:52)
[2019-12-08] MEDS: HEPARIN 5,000 UNIT/1 ML VIAL SUB-Q SCH ×2 (10:52→22:13)
[2019-12-08] MEDS: hydrOXYzine PAMOATE 25 MG CAP PO SCH ×2 (10:52→22:13)
[2019-12-08] MEDS: MIRTAZAPINE 30 MG TAB PO SCH (10:52)
[2019-12-08] MEDS: levETIRAcetam 500 MG/5 ML ORAL LIQD PO SCH ×2 (10:52→22:10)
--- NOTE | 2019-12-08 14:14 | Progress Note ---
Assessment and Plan Acute cardiopulmonary arrest with ROSC Acute hypoxemic respiratory failure on MVS Acute metabolic-toxic encephalopathy Metabolic acidosis/alcoholic acidosis/Lactic acidosis Ischemic hepatitis Leucocytosis with lactic acidosis Tobacco use disorder ALcohol use Disorder Hypokalemia High grade fevers - await evaluation for trach and PEG - CXR reviewed and addressed - continue Librium but increase to 75 mg po q8h - continue to rest on AC mode qhs - continue Seroquel for tentative delirium and to spare IV sedation - get ABG prn at this point - continue empiric Antibiotics per ID recommendations; de-escalate based on HILARIO /sensitivities / clinical progress - CIWA protocol - rest opn AC mode qhs for now - VAP bundle addressed (continue aspiration precautions, HOB>40) - ontinue daily SAT's and assessment for readiness for SBT (For PSV trial today) - Continue Intermittent sedation until patient's neurologic state can be better evaluated - begin Seroquel for agitation / to spare IV sedatives - Continue VTE and Stress ulcer prophylaxis - Continue enteric nutritional support. Monitor glycemic control, with target blood glucose 140-180 mg/dL while critically ill (Avoid hypoglycemia) - Continue daily SAT assessment as tolerated - Continue to wean supplemental oxygen for target O2 sat's > 90% - ABG and CXR prn - continue bronchodilators with p[ulmonary hygiene per RT - Continue to trend leukocytosis and lactic acidosis - Continue to treat for hepatic encephalopathy- especially with elevated ammonia levels- lactulose - Continue thiamine, multivitamin and electrolyte replacement - Continue to avoid nephrotoxins, adjust all medications fro GFR and CrCL - Continue bronchodilators with pulmonary hygiene - Continue to avoid benzodiazepines , as much as possible, to reduce the possibility of delirium - Continue prn analgesia per CPOT score - Continue to maintain of sleep-wake cycle, avoid delirium - PT/OT/ROM exercises- awaiting PT/OT evaluation - Continue mobility protocol and skin assessment per protocol for pressure ulcer prevention - Continue to monitor for clinical seizures - Continue Nicotine withdrawal precautions, alcohol withdrawal precautions - continue other care per attending / other consultants ..... re-evaluate in am & prn CONDITION: CRITICAL PROGNOSIS: GUARDED CODE STATUS: FULL CODE The high probability of a clinically significant, sudden or life-threatening deterioration of the [respiratory, cardiovascular,GI/hepatology] system(s) required my full and direct attention, intervention and personal management. The aggregate critical care time was [33] minutes without overlap. Time includes spent on; [x] Data Review and interpretation [x] Patient assessment and monitoring of vital signs [x] Documentation [x] Medication orders and management Subjective Date of service: 12/08/19 Principal diagnosis: Ac cardiopulmonary arrest; Ac hypoxemic resp failure; Acute encephalopathy Interval history: Patient is seen today for: Acute cardiopulmonary arrest with ROSC; Acute hypoxemic respiratory failure; Acute metabolic-toxic encephalopathy; Ischemic hepatitis; Leucocytosis with lactic acidosis; Tobacco use disorder; Alcohol use Disorder; Hypokalemia; High grade fevers Seen and examined at bedside; 24hour events reviewed; nursing and respiratory care staff consulted; no adverse overnight events reported to me; resting peacefully in bed; weaning tenuously; AMS is persistent; no new issues otherwise Objective Vital Signs - 12hr 12/08/19 12/08/19 12/08/19 02:30 03:00 03:30 Temperature Pulse Rate 90 94 H 102 H Pulse Rate [ From Monitor] Respiratory 12 12 12 Rate Blood Pressure 153/98 157/97 171/109 O2 Sat by Pulse 100 100 100 Oximetry 12/08/19 12/08/19 12/08/19 04:00 04:14 04:15 Temperature 97.5 F L 97.5 F L Pulse Rate 123 H Pulse Rate [ 106 H From Monitor] Respiratory 12 Rate Blood Pressure 171/106 O2 Sat by Pulse 100 Oximetry 12/08/19 12/08/19 12/08/19 04:30 05:00 05:30 Temperature Pulse Rate 104 H 108 H Pulse Rate [ From Monitor] Respiratory 12 12 Rate Blood Pressure 166/100 168/107 166/104 O2 Sat by Pulse 100 100 90 Oximetry 12/08/19 12/08/19 12/08/19 05:51 06:00 06:30 Temperature Pulse Rate 112 H 123 H 125 H Pulse Rate [ From Monitor] Respiratory 17 17 Rate Blood Pressure 166/107 138/87 136/84 O2 Sat by Pulse 100 Oximetry 12/08/19 12/08/19 12/08/19 07:00 07:30 08:00 Temperature 97.5 F L Pulse Rate 125 H 125 H 134 H Pulse Rate [ 69 From Monitor] Respiratory 16 17 36 H Rate Blood Pressure 145/87 139/85 135/86 O2 Sat by Pulse 97 98 26 L Oximetry 12/08/19 12/08/19 12/08/19 08:15 08:30 09:00 Temperature Pulse Rate 126 H 128 H Pulse Rate [ From Monitor] Respiratory 35 H Rate Blood Pressure 146/92 163/96 136/81 O2 Sat by Pulse 100 100 99 Oximetry 12/08/19 12/08/19 12/08/19 09:30 10:00 10:30 Temperature Pulse Rate 128 H 118 H 109 H Pulse Rate [ 69 From Monitor] Respiratory 37 H 12 12 Rate Blood Pressure 128/86 123/86 119/86 O2 Sat by Pulse 98 98 Oximetry 12/08/19 12/08/19 12/08/19 11:00 11:30 12:00 Temperature 98.3 F Pulse Rate 101 H 103 H 105 H Pulse Rate [ 69 From Monitor] Respiratory 12 12 12 Rate Blood Pressure 129/87 139/89 148/94 O2 Sat by Pulse 100 100 Oximetry 12/08/19 12/08/19 12/08/19 12:15 12:30 13:00 Temperature Pulse Rate 106 H 103 H 101 H Pulse Rate [ From Monitor] Respiratory 12 12 Rate Blood Pressure 138/92 140/93 143/92 O2 Sat by Pulse 100 100 Oximetry 12/08/19 12/08/19 13:30 14:00 Temperature Pulse Rate 101 H 99 H Pulse Rate [ From Monitor] Respiratory 12 12 Rate Blood Pressure 135/88 143/91 O2 Sat by Pulse 100 Oximetry Constitutional: no acute distress, other (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, orally intuabted ETT at 23 cm at the lip to mVS, mild dys-synchrony) Eyes: non-icteric ENT: oropharynx moist, other (ETT 23 cm AMALIA) Neck: supple, no lymphadenopathy, no JVD Effort: mildly labored Ascultation: Bilateral: diminished breath sounds, rhonchi Percussion: Bilateral: not dull Cardiovascular: regular rate and rhythm (tachycardia), other (S1,S2) Gastrointestinal: normoactive bowel sounds, soft, non-tender, non-distended Integumentary: normal Extremities: no cyanosis, no edema, pulses normal, no ischemia or petechiae Neurologic: unable to assess, other (awake but not tracking voice ) Psychiatric: other (Psychiatric: Unable to assess) CBC and BMP: 12/07/19 03:44 12/09/19 06:13 ABG, PT/INR, D-dimer: ABG ABG pH 7.437 pH Units (7.350-7.450) 12/03/19 20:00 ABG pCO2 50.7 mm Hg 12/03/19 20:00 ABG pO2 68.3 mm Hg (80.0-90.0) L 12/03/19 20:00 ABG O2 Saturation 93.5 % (95.0-99.0) L 12/03/19 20:00 PT/INR, D-dimer PT 17.0 Sec. (12.2-14.9) H 11/23/19 03:47 INR 1.36 (0.87-1.13) H 11/23/19 03:47 Abnormal lab findings: Abnormal Labs 11/22/19 11/22/19 11/22/19 23:17 23:18 23:27 WBC 21.2 H RBC 3.59 L Hgb 9.8 L Hct MCH 27 L RDW 18.6 H Plt Count 454 H Lymph % (Auto) [place] % (Auto) [place] # Seg Neutrophils % Seg Neuts % (Manual) 86.0 H Lymphocytes % (Manual) 9.0 L Seg Neutrophils # Seg Neutrophils # Man 18.2 H Lymphocytes # (Manual) Monocytes # (Manual) 1.1 H PT INR APTT ABG pH ABG pO2 ABG HCO3 ABG O2 Saturation ABG Base Excess ABG Hemoglobin Oxyhemoglobin Sodium Potassium Chloride Carbon Dioxide BUN Creatinine Glucose POC Glucose 53 L Lactic Acid Calcium Ionized Calcium Phosphorus Magnesium Total Bilirubin AST ALT Alkaline Phosphatase Ammonia Total Creatine Kinase CK-MB (CK-2) CK-MB (CK-2) Rel Index Total Protein Albumin Urine WBC (Auto) 40.0 H Salicylates Acetaminophen Plasma/Serum Alcohol 11/22/19 11/22/19 11/22/19 23:27 23:27 23:27 WBC RBC Hgb Hct MCH RDW Plt Count Lymph % (Auto) [place] % (Auto) [place] # Seg Neutrophils % Seg Neuts % (Manual) Lymphocytes % (Manual) Seg Neutrophils # Seg Neutrophils # Man Lymphocytes # (Manual) Monocytes # (Manual) PT INR APTT ABG pH ABG pO2 ABG HCO3 ABG O2 Saturation ABG Base Excess ABG Hemoglobin Oxyhemoglobin Sodium Potassium 2.4 L* Chloride 85.1 L Carbon Dioxide 19 L BUN Creatinine 0.5 L Glucose 261 H POC Glucose Lactic Acid Calcium Ionized Calcium Phosphorus Magnesium Total Bilirubin AST 609 H ALT 152 H Alkaline Phosphatase 160 H Ammonia 117.0 H Total Creatine Kinase 139 H CK-MB (CK-2) 8.3 H CK-MB (CK-2) Rel Index 5.9 H Total Protein Albumin 3.6 L Urine WBC (Auto) Salicylates < 0.3 L Acetaminophen Plasma/Serum Alcohol 11/22/19 11/22/19 11/23/19 23:27 23:27 01:10 WBC RBC Hgb Hct MCH RDW Plt Count Lymph % (Auto) [place] % (Auto) [place] # Seg Neutrophils % Seg Neuts % (Manual) Lymphocytes % (Manual) Seg Neutrophils # Seg Neutrophils # Man Lymphocytes # (Manual) Monocytes # (Manual) PT INR APTT ABG pH 7.273 L ABG pO2 209.7 H ABG HCO3 ABG O2 Saturation 99.2 H ABG Base Excess -3.9 L ABG Hemoglobin 10.6 L Oxyhemoglobin 93.9 L Sodium Potassium Chloride Carbon Dioxide BUN Creatinine Glucose POC Glucose Lactic Acid Calcium Ionized Calcium Phosphorus Magnesium Total Bilirubin AST ALT Alkaline Phosphatase Ammonia Total Creatine Kinase CK-MB (CK-2) CK-MB (CK-2) Rel Index Total Protein Albumin Urine WBC (Auto) Salicylates Acetaminophen < 5.0 L Plasma/Serum Alcohol 0.08 H 11/23/19 11/23/19 11/23/19 01:19 01:19 03:47 WBC RBC Hgb Hct MCH RDW Plt Count Lymph % (Auto) [place] % (Auto) [place] # Seg Neutrophils % Seg Neuts % (Manual) Lymphocytes % (Manual) Seg Neutrophils # Seg Neutrophils # Man Lymphocytes # (Manual) Monocytes # (Manual) PT 16.3 H INR 1.29 H APTT ABG pH ABG pO2 ABG HCO3 ABG O2 Saturation ABG Base Excess ABG Hemoglobin Oxyhemoglobin Sodium Potassium Chloride Carbon Dioxide BUN Creatinine Glucose POC Glucose Lactic Acid 2.10 H* 5.00 H* Calcium Ionized Calcium Phosphorus Magnesium Total Bilirubin AST ALT Alkaline Phosphatase Ammonia Total Creatine Kinase CK-MB (CK-2) CK-MB (CK-2) Rel Index Total Protein Albumin Urine WBC (Auto) Salicylates Acetaminophen Plasma/Serum Alcohol 11/23/19 11/23/19 11/23/19 03:47 03:47 04:53 WBC RBC Hgb 9.4 L Hct MCH RDW Plt Count Lymph % (Auto) [place] % (Auto) [place] # Seg Neutrophils % Seg Neuts % (Manual) Lymphocytes % (Manual) Seg Neutrophils # Seg Neutrophils # Man Lymphocytes # (Manual) Monocytes # (Manual) PT 17.0 H INR 1.36 H APTT 128.2 H* ABG pH ABG pO2 ABG HCO3 ABG O2 Saturation ABG Base Excess ABG Hemoglobin Oxyhemoglobin Sodium Potassium Chloride Carbon Dioxide 18 L BUN Creatinine 0.5 L Glucose 105 H POC Glucose Lactic Acid Calcium 8.3 L Ionized Calcium Phosphorus 2.40 L Magnesium Total Bilirubin 1.30 H AST 761 H ALT 158 H Alkaline Phosphatase 143 H Ammonia Total Creatine Kinase CK-MB (CK-2) CK-MB (CK-2) Rel Index Total Protein Albumin 2.8 L Urine WBC (Auto) Salicylates Acetaminophen Plasma/Serum Alcohol 11/23/19 11/23/19 11/23/19 05:12 06:32 06:32 WBC 16.8 H RBC 3.31 L Hgb 8.9 L Hct 28.7 L MCH 27 L RDW 18.6 H Plt Count Lymph % (Auto) [place] % (Auto) [place] # Seg Neutrophils % Seg Neuts % (Manual) 94.0 H Lymphocytes % (Manual) 1.0 L Seg Neutrophils # Seg Neutrophils # Man 15.8 H Lymphocytes # (Manual) 0.2 L Monocytes # (Manual) PT INR APTT ABG pH ABG pO2 ABG HCO3 ABG O2 Saturation ABG Base Excess -3.2 L ABG Hemoglobin 9.0 L Oxyhemoglobin 93.6 L Sodium Potassium Chloride Carbon Dioxide BUN Creatinine Glucose POC Glucose Lactic Acid Calcium Ionized Calcium 4.5 L Phosphorus Magnesium Total Bilirubin AST ALT Alkaline Phosphatase Ammonia Total Creatine Kinase CK-MB (CK-2) CK-MB (CK-2) Rel Index Total Protein Albumin Urine WBC (Auto) Salicylates Acetaminophen Plasma/Serum Alcohol 11/23/19 11/24/19 11/24/19 06:32 04:35 04:35 WBC RBC Hgb Hct MCH RDW Plt Count Lymph % (Auto) [place] % (Auto) [place] # Seg Neutrophils % Seg Neuts % (Manual) Lymphocytes % (Manual) Seg Neutrophils # Seg Neutrophils # Man Lymphocytes # (Manual) Monocytes # (Manual) PT INR APTT ABG pH ABG pO2 ABG HCO3 ABG O2 Saturation ABG Base Excess ABG Hemoglobin Oxyhemoglobin Sodium Potassium Chloride Carbon Dioxide BUN Creatinine Glucose POC Glucose Lactic Acid 3.30 H* Calcium Ionized Calcium Phosphorus Magnesium 1.40 L Total Bilirubin AST ALT Alkaline Phosphatase Ammonia 98.0 H Total Creatine Kinase CK-MB (CK-2) CK-MB (CK-2) Rel Index Total Protein Albumin Urine WBC (Auto) Salicylates Acetaminophen Plasma/Serum Alcohol 11/24/19 11/25/19 11/25/19 05:22 04:34 05:05 WBC 17.3 H RBC 2.88 L Hgb 7.8 L Hct 24.6 L MCH 27 L RDW 18.5 H Plt Count Lymph % (Auto) 7.7 L [place] % (Auto) 9.7 H [place] # 1.7 H Seg Neutrophils % 82.2 H Seg Neuts % (Manual) Lymphocytes % (Manual) Seg Neutrophils # 14.2 H Seg Neutrophils # Man Lymphocytes # (Manual) Monocytes # (Manual) PT INR APTT ABG pH 7.475 H ABG pO2 ABG HCO3 29.4 H 32.3 H ABG O2 Saturation ABG Base Excess 5.4 H 6.9 H ABG Hemoglobin 9.0 L 10.6 L Oxyhemoglobin 94.3 L Sodium Potassium Chloride Carbon Dioxide BUN Creatinine Glucose POC Glucose Lactic Acid Calcium Ionized Calcium Phosphorus Magnesium Total Bilirubin AST ALT Alkaline Phosphatase Ammonia Total Creatine Kinase CK-MB (CK-2) CK-MB (CK-2) Rel Index Total Protein Albumin Urine WBC (Auto) Salicylates Acetaminophen Plasma/Serum Alcohol 11/25/19 11/25/19 11/26/19 05:05 22:46 03:31 WBC RBC Hgb Hct MCH RDW Plt Count Lymph % (Auto) [place] % (Auto) [place] # Seg Neutrophils % Seg Neuts % (Manual) Lymphocytes % (Manual) Seg Neutrophils # Seg Neutrophils # Man Lymphocytes # (Manual) Monocytes # (Manual) PT INR APTT ABG pH 7.459 H ABG pO2 ABG HCO3 34.2 H ABG O2 Saturation ABG Base Excess 9.4 H ABG Hemoglobin 7.6 L Oxyhemoglobin 94.8 L Sodium 152 H D 147 H Potassium 2.3 L* D 2.8 L* D Chloride 107.8 H Carbon Dioxide 31 H D 33 H BUN Creatinine 0.6 L 0.6 L Glucose 148 H 177 H POC Glucose Lactic Acid Calcium Ionized Calcium Phosphorus Magnesium Total Bilirubin AST 105 H ALT 71 H Alkaline Phosphatase 155 H Ammonia Total Creatine Kinase CK-MB (CK-2) CK-MB (CK-2) Rel Index Total Protein 5.2 L D Albumin 2.9 L Urine WBC (Auto) Salicylates Acetaminophen Plasma/Serum Alcohol 11/26/19 11/26/19 11/27/19 08:24 08:24 04:20 WBC 12.0 H RBC 3.00 L Hgb 8.0 L 9.3 L Hct 25.9 L 29.7 L MCH 27 L RDW 18.5 H Plt Count Lymph % (Auto) [place] % (Auto) [place] # Seg Neutrophils % Seg Neuts % (Manual) 89.0 H Lymphocytes % (Manual) 4.0 L Seg Neutrophils # Seg Neutrophils # Man 10.7 H Lymphocytes # (Manual) 0.5 L Monocytes # (Manual) PT INR APTT ABG pH ABG pO2 ABG HCO3 ABG O2 Saturation ABG Base Excess ABG Hemoglobin Oxyhemoglobin Sodium 146 H Potassium 3.4 L D Chloride Carbon Dioxide BUN Creatinine 0.5 L Glucose 165 H POC Glucose Lactic Acid Calcium Ionized Calcium Phosphorus Magnesium Total Bilirubin AST 57 H ALT Alkaline Phosphatase 166 H Ammonia Total Creatine Kinase CK-MB (CK-2) CK-MB (CK-2) Rel Index Total Protein Albumin 2.9 L Urine WBC (Auto) Salicylates Acetaminophen Plasma/Serum Alcohol 11/27/19 11/27/19 11/27/19 04:28 04:28 04:42 WBC RBC Hgb Hct MCH RDW Plt Count Lymph % (Auto) [place] % (Auto) [place] # Seg Neutrophils % Seg Neuts % (Manual) Lymphocytes % (Manual) Seg Neutrophils # Seg Neutrophils # Man Lymphocytes # (Manual) Monocytes # (Manual) PT INR APTT ABG pH 7.470 H ABG pO2 74.0 L ABG HCO3 33.8 H ABG O2 Saturation ABG Base Excess 9.1 H ABG Hemoglobin 8.7 L Oxyhemoglobin 94.7 L Sodium 146 H Potassium 2.9 L* Chloride Carbon Dioxide BUN 25 H Creatinine Glucose 213 H POC Glucose Lactic Acid Calcium Ionized Calcium Phosphorus 1.00 L Magnesium Total Bilirubin AST ALT Alkaline Phosphatase Ammonia Total Creatine Kinase CK-MB (CK-2) CK-MB (CK-2) Rel Index Total Protein Albumin Urine WBC (Auto) Salicylates Acetaminophen Plasma/Serum Alcohol 11/27/19 11/27/19 11/27/19 05:37 12:20 15:46 WBC RBC Hgb Hct MCH RDW Plt Count Lymph % (Auto) [place] % (Auto) [place] # Seg Neutrophils % Seg Neuts % (Manual) Lymphocytes % (Manual) Seg Neutrophils # Seg Neutrophils # Man Lymphocytes # (Manual) Monocytes # (Manual) PT INR APTT ABG pH ABG pO2 ABG HCO3 ABG O2 Saturation ABG Base Excess ABG Hemoglobin Oxyhemoglobin Sodium 146 H Potassium 3.5 L D Chloride Carbon Dioxide BUN 24 H Creatinine 0.6 L Glucose 187 H POC Glucose 117 H 220 H Lactic Acid Calcium Ionized Calcium Phosphorus Magnesium Total Bilirubin AST ALT Alkaline Phosphatase Ammonia Total Creatine Kinase CK-MB (CK-2) CK-MB (CK-2) Rel Index Total Protein Albumin Urine WBC (Auto) Salicylates Acetaminophen Plasma/Serum Alcohol 11/27/19 11/28/19 11/28/19 17:28 05:00 05:02 WBC RBC Hgb Hct MCH RDW Plt Count Lymph % (Auto) [place] % (Auto) [place] # Seg Neutrophils % Seg Neuts % (Manual) Lymphocytes % (Manual) Seg Neutrophils # Seg Neutrophils # Man Lymphocytes # (Manual) Monocytes # (Manual) PT INR APTT ABG pH ABG pO2 72.4 L ABG HCO3 33.6 H ABG O2 Saturation 94.1 L ABG Base Excess 7.3 H ABG Hemoglobin Oxyhemoglobin 91.8 L Sodium 146 H Potassium 3.3 L Chloride Carbon Dioxide BUN 25 H Creatinine 0.6 L Glucose 176 H POC Glucose 198 H Lactic Acid Calcium Ionized Calcium Phosphorus Magnesium Total Bilirubin AST ALT Alkaline Phosphatase Ammonia Total Creatine Kinase CK-MB (CK-2) CK-MB (CK-2) Rel Index Total Protein Albumin Urine WBC (Auto) Salicylates Acetaminophen Plasma/Serum Alcohol 11/28/19 11/28/19 11/29/19 05:02 18:55 10:43 WBC 15.2 H 19.0 H RBC 3.06 L 3.01 L Hgb 8.3 L 8.3 L Hct 27.0 L 26.4 L MCH 27 L RDW 19.0 H 19.7 H Plt Count 479 H 611 H Lymph % (Auto) [place] % (Auto) [place] # Seg Neutrophils % Seg Neuts % (Manual) 92.0 H Lymphocytes % (Manual) 2.0 L Seg Neutrophils # Seg Neutrophils # Man 14.0 H Lymphocytes # (Manual) 0.3 L Monocytes # (Manual) PT INR APTT ABG pH ABG pO2 ABG HCO3 ABG O2 Saturation ABG Base Excess ABG Hemoglobin Oxyhemoglobin Sodium Potassium Chloride Carbon Dioxide BUN Creatinine Glucose POC Glucose 138 H Lactic Acid Calcium Ionized Calcium Phosphorus Magnesium Total Bilirubin AST ALT Alkaline Phosphatase Ammonia Total Creatine Kinase CK-MB (CK-2) CK-MB (CK-2) Rel Index Total Protein Albumin Urine WBC (Auto) Salicylates Acetaminophen Plasma/Serum Alcohol 11/29/19 11/29/19 11/29/19 10:43 12:27 19:25 WBC RBC Hgb Hct MCH RDW Plt Count Lymph % (Auto) [place] % (Auto) [place] # Seg Neutrophils % Seg Neuts % (Manual) Lymphocytes % (Manual) Seg Neutrophils # Seg Neutrophils # Man Lymphocytes # (Manual) Monocytes # (Manual) PT INR APTT ABG pH ABG pO2 ABG HCO3 ABG O2 Saturation ABG Base Excess ABG Hemoglobin Oxyhemoglobin Sodium Potassium 2.8 L* Chloride Carbon Dioxide BUN 20 H Creatinine 0.5 L Glucose 121 H POC Glucose 128 H 120 H Lactic Acid Calcium Ionized Calcium Phosphorus Magnesium Total Bilirubin AST ALT Alkaline Phosphatase Ammonia Total Creatine Kinase CK-MB (CK-2) CK-MB (CK-2) Rel Index Total Protein Albumin Urine WBC (Auto) Salicylates Acetaminophen Plasma/Serum Alcohol 11/29/19 11/30/19 11/30/19 23:46 04:10 05:02 WBC RBC Hgb Hct MCH RDW Plt Count Lymph % (Auto) [place] % (Auto) [place] # Seg Neutrophils % Seg Neuts % (Manual) Lymphocytes % (Manual) Seg Neutrophils # Seg Neutrophils # Man Lymphocytes # (Manual) Monocytes # (Manual) PT INR APTT ABG pH ABG pO2 76.3 L ABG HCO3 32.5 H ABG O2 Saturation ABG Base Excess 6.9 H ABG Hemoglobin 8.0 L Oxyhemoglobin 92.6 L Sodium Potassium Chloride Carbon Dioxide BUN Creatinine Glucose POC Glucose 116 H 128 H Lactic Acid Calcium Ionized Calcium Phosphorus Magnesium Total Bilirubin AST ALT Alkaline Phosphatase Ammonia Total Creatine Kinase CK-MB (CK-2) CK-MB (CK-2) Rel Index Total Protein Albumin Urine WBC (Auto) Salicylates Acetaminophen Plasma/Serum Alcohol 11/30/19 11/30/19 11/30/19 05:25 05:25 12:59 WBC 18.4 H RBC 3.10 L Hgb 8.5 L Hct 27.5 L MCH 27 L RDW 20.9 H Plt Count 691 H Lymph % (Auto) 7.1 L [place] % (Auto) 7.7 H [place] # 1.4 H Seg Neutrophils % 83.4 H Seg Neuts % (Manual) Lymphocytes % (Manual) Seg Neutrophils # 15.4 H Seg Neutrophils # Man Lymphocytes # (Manual) Monocytes # (Manual) PT INR APTT ABG pH ABG pO2 ABG HCO3 ABG O2 Saturation ABG Base Excess ABG Hemoglobin Oxyhemoglobin Sodium 146 H Potassium Chloride 107.2 H Carbon Dioxide BUN Creatinine 0.5 L Glucose 132 H POC Glucose 124 H Lactic Acid Calcium Ionized Calcium Phosphorus Magnesium Total Bilirubin AST 246 H ALT 274 H Alkaline Phosphatase 203 H Ammonia Total Creatine Kinase CK-MB (CK-2) CK-MB (CK-2) Rel Index Total Protein 5.4 L Albumin 2.9 L Urine WBC (Auto) Salicylates Acetaminophen Plasma/Serum Alcohol 11/30/19 12/01/19 12/01/19 17:53 00:05 05:10 WBC RBC Hgb Hct MCH RDW Plt Count Lymph % (Auto) [place] % (Auto) [place] # Seg Neutrophils % Seg Neuts % (Manual) Lymphocytes % (Manual) Seg Neutrophils # Seg Neutrophils # Man Lymphocytes # (Manual) Monocytes # (Manual) PT INR APTT ABG pH ABG pO2 ABG HCO3 ABG O2 Saturation ABG Base Excess ABG Hemoglobin Oxyhemoglobin Sodium Potassium Chloride Carbon Dioxide BUN Creatinine Glucose POC Glucose 113 H 143 H 145 H Lactic Acid Calcium Ionized Calcium Phosphorus Magnesium Total Bilirubin AST ALT Alkaline Phosphatase Ammonia Total Creatine Kinase CK-MB (CK-2) CK-MB (CK-2) Rel Index Total Protein Albumin Urine WBC (Auto) Salicylates Acetaminophen Plasma/Serum Alcohol 12/01/19 12/01/19 12/01/19 05:33 08:23 08:23 WBC 22.7 H RBC 2.88 L Hgb 7.9 L Hct 25.2 L MCH 27 L RDW 21.0 H Plt Count 732 H Lymph % (Auto) [place] % (Auto) [place] # Seg Neutrophils % Seg Neuts % (Manual) 91.0 H Lymphocytes % (Manual) 3.0 L Seg Neutrophils # Seg Neutrophils # Man 20.7 H Lymphocytes # (Manual) 0.7 L Monocytes # (Manual) 1.1 H PT INR APTT ABG pH ABG pO2 68.6 L ABG HCO3 34.1 H ABG O2 Saturation ABG Base Excess 9.0 H ABG Hemoglobin 6.5 L Oxyhemoglobin 94.7 L Sodium Potassium Chloride Carbon Dioxide BUN Creatinine 0.5 L Glucose 125 H POC Glucose Lactic Acid Calcium Ionized Calcium Phosphorus Magnesium Total Bilirubin AST ALT Alkaline Phosphatase Ammonia Total Creatine Kinase CK-MB (CK-2) CK-MB (CK-2) Rel Index Total Protein Albumin Urine WBC (Auto) Salicylates Acetaminophen Plasma/Serum Alcohol 12/01/19 12/01/19 12/01/19 13:21 17:54 20:59 WBC RBC Hgb Hct MCH RDW Plt Count Lymph % (Auto) [place] % (Auto) [place] # Seg Neutrophils % Seg Neuts % (Manual) Lymphocytes % (Manual) Seg Neutrophils # Seg Neutrophils # Man Lymphocytes # (Manual) Monocytes # (Manual) PT INR APTT ABG pH ABG pO2 78.3 L ABG HCO3 33.8 H ABG O2 Saturation 94.9 L ABG Base Excess 7.9 H ABG Hemoglobin 11.5 L Oxyhemoglobin 92.3 L Sodium Potassium Chloride Carbon Dioxide BUN Creatinine Glucose POC Glucose 111 H 115 H Lactic Acid Calcium Ionized Calcium Phosphorus Magnesium Total Bilirubin AST ALT Alkaline Phosphatase Ammonia Total Creatine Kinase CK-MB (CK-2) CK-MB (CK-2) Rel Index Total Protein Albumin Urine WBC (Auto) Salicylates Acetaminophen Plasma/Serum Alcohol 12/02/19 12/03/19 12/04/19 12:55 20:00 04:26 WBC 15.2 H RBC 2.69 L Hgb 7.4 L Hct 23.6 L MCH 27 L RDW 19.9 H Plt Count 838 H Lymph % (Auto) [place] % (Auto) [place] # Seg Neutrophils % Seg Neuts % (Manual) Lymphocytes % (Manual) Seg Neutrophils # Seg Neutrophils # Man Lymphocytes # (Manual) Monocytes # (Manual) PT INR APTT ABG pH ABG pO2 68.3 L ABG HCO3 33.5 H ABG O2 Saturation 93.5 L ABG Base Excess 8.4 H ABG Hemoglobin 7.3 L Oxyhemoglobin 90.9 L Sodium Potassium Chloride Carbon Dioxide BUN Creatinine Glucose POC Glucose 107 H Lactic Acid Calcium Ionized Calcium Phosphorus Magnesium Total Bilirubin AST ALT Alkaline Phosphatase Ammonia Total Creatine Kinase CK-MB (CK-2) CK-MB (CK-2) Rel Index Total Protein Albumin Urine WBC (Auto) Salicylates Acetaminophen Plasma/Serum Alcohol 12/04/19 12/04/19 12/04/19 04:26 07:45 12:02 WBC 15.9 H RBC 2.88 L Hgb 7.9 L Hct 25.1 L MCH RDW 20.4 H Plt Count 839 H Lymph % (Auto) 11.3 L [place] % (Auto) 15.2 H [place] # 2.4 H Seg Neutrophils % 72.4 H Seg Neuts % (Manual) Lymphocytes % (Manual) Seg Neutrophils # 11.5 H Seg Neutrophils # Man Lymphocytes # (Manual) Monocytes # (Manual) PT INR APTT ABG pH ABG pO2 ABG HCO3 ABG O2 Saturation ABG Base Excess ABG Hemoglobin Oxyhemoglobin Sodium Potassium Chloride 96.5 L Carbon Dioxide BUN 21 H Creatinine 0.6 L Glucose 107 H POC Glucose 138 H Lactic Acid Calcium Ionized Calcium Phosphorus Magnesium Total Bilirubin AST ALT Alkaline Phosphatase Ammonia Total Creatine Kinase CK-MB (CK-2) CK-MB (CK-2) Rel Index Total Protein Albumin Urine WBC (Auto) Salicylates Acetaminophen Plasma/Serum Alcohol 12/04/19 12/05/19 12/05/19 18:16 11:55 18:36 WBC RBC Hgb Hct MCH RDW Plt Count Lymph % (Auto) [place] % (Auto) [place] # Seg Neutrophils % Seg Neuts % (Manual) Lymphocytes % (Manual) Seg Neutrophils # Seg Neutrophils # Man Lymphocytes # (Manual) Monocytes # (Manual) PT INR APTT ABG pH ABG pO2 ABG HCO3 ABG O2 Saturation ABG Base Excess ABG Hemoglobin Oxyhemoglobin Sodium Potassium Chloride Carbon Dioxide BUN Creatinine Glucose POC Glucose 135 H 125 H 135 H Lactic Acid Calcium Ionized Calcium Phosphorus Magnesium Total Bilirubin AST ALT Alkaline Phosphatase Ammonia Total Creatine Kinase CK-MB (CK-2) CK-MB (CK-2) Rel Index Total Protein Albumin Urine WBC (Auto) Salicylates Acetaminophen Plasma/Serum Alcohol 12/05/19 12/06/19 12/06/19 23:30 04:14 05:43 WBC RBC Hgb Hct MCH RDW Plt Count Lymph % (Auto) [place] % (Auto) [place] # Seg Neutrophils % Seg Neuts % (Manual) Lymphocytes % (Manual) Seg Neutrophils # Seg Neutrophils # Man Lymphocytes # (Manual) Monocytes # (Manual) PT INR APTT ABG pH ABG pO2 ABG HCO3 ABG O2 Saturation ABG Base Excess ABG Hemoglobin Oxyhemoglobin Sodium Potassium 5.6 H Chloride 95.0 L Carbon Dioxide BUN 48 H Creatinine 1.3 H D Glucose POC Glucose 126 H 121 H Lactic Acid Calcium Ionized Calcium Phosphorus Magnesium Total Bilirubin AST 89 H ALT 98 H Alkaline Phosphatase 476 H Ammonia Total Creatine Kinase CK-MB (CK-2) CK-MB (CK-2) Rel Index Total Protein Albumin 2.8 L Urine WBC (Auto) Salicylates Acetaminophen Plasma/Serum Alcohol 12/06/19 12/06/19 12/07/19 10:39 14:34 00:19 WBC 17.3 H RBC 2.60 L Hgb 7.1 L Hct 22.7 L MCH 27 L RDW 20.1 H Plt Count 832 H Lymph % (Auto) [place] % (Auto) [place] # Seg Neutrophils % Seg Neuts % (Manual) Lymphocytes % (Manual) Seg Neutrophils # Seg Neutrophils # Man Lymphocytes # (Manual) Monocytes # (Manual) PT INR APTT ABG pH ABG pO2 ABG HCO3 ABG O2 Saturation ABG Base Excess ABG Hemoglobin Oxyhemoglobin Sodium Potassium Chloride Carbon Dioxide BUN Creatinine Glucose POC Glucose 128 H 136 H Lactic Acid Calcium Ionized Calcium Phosphorus Magnesium Total Bilirubin AST ALT Alkaline Phosphatase Ammonia Total Creatine Kinase CK-MB (CK-2) CK-MB (CK-2) Rel Index Total Protein Albumin Urine WBC (Auto) Salicylates Acetaminophen Plasma/Serum Alcohol 12/07/19 12/07/19 12/07/19 03:44 03:44 05:53 WBC 16.2 H RBC 2.56 L Hgb 7.1 L Hct 22.3 L MCH RDW 19.4 H Plt Count 782 H Lymph % (Auto) [place] % (Auto) [place] # Seg Neutrophils % Seg Neuts % (Manual) Lymphocytes % (Manual) Seg Neutrophils # Seg Neutrophils # Man Lymphocytes # (Manual) Monocytes # (Manual) PT INR APTT ABG pH ABG pO2 ABG HCO3 ABG O2 Saturation ABG Base Excess ABG Hemoglobin Oxyhemoglobin Sodium Potassium Chloride 95.6 L Carbon Dioxide BUN 56 H Creatinine 1.4 H Glucose 120 H POC Glucose 128 H Lactic Acid Calcium 10.3 H Ionized Calcium Phosphorus Magnesium Total Bilirubin AST ALT Alkaline Phosphatase Ammonia Total Creatine Kinase CK-MB (CK-2) CK-MB (CK-2) Rel Index Total Protein Albumin Urine WBC (Auto) Salicylates Acetaminophen Plasma/Serum Alcohol 12/07/19 12/07/19 12/08/19 12:54 23:47 00:20 WBC RBC Hgb Hct MCH RDW Plt Count Lymph % (Auto) [place] % (Auto) [place] # Seg Neutrophils % Seg Neuts % (Manual) Lymphocytes % (Manual) Seg Neutrophils # Seg Neutrophils # Man Lymphocytes # (Manual) Monocytes # (Manual) PT INR APTT ABG pH ABG pO2 ABG HCO3 ABG O2 Saturation ABG Base Excess ABG Hemoglobin Oxyhemoglobin Sodium Potassium Chloride Carbon Dioxide BUN Creatinine Glucose POC Glucose 128 H 130 H 124 H Lactic Acid Calcium Ionized Calcium Phosphorus Magnesium Total Bilirubin AST ALT Alkaline Phosphatase Ammonia Total Creatine Kinase CK-MB (CK-2) CK-MB (CK-2) Rel Index Total Protein Albumin Urine WBC (Auto) Salicylates Acetaminophen Plasma/Serum Alcohol 12/08/19 12/08/19 06:38 12:04 WBC RBC Hgb Hct MCH RDW Plt Count Lymph % (Auto) [place] % (Auto) [place] # Seg Neutrophils % Seg Neuts % (Manual) Lymphocytes % (Manual) Seg Neutrophils # Seg Neutrophils # Man Lymphocytes # (Manual) Monocytes # (Manual) PT INR APTT ABG pH ABG pO2 ABG HCO3 ABG O2 Saturation ABG Base Excess ABG Hemoglobin Oxyhemoglobin Sodium Potassium Chloride Carbon Dioxide BUN Creatinine Glucose POC Glucose 137 H 129 H Lactic Acid Calcium Ionized Calcium Phosphorus Magnesium Total Bilirubin AST ALT Alkaline Phosphatase Ammonia Total Creatine Kinase CK-MB (CK-2) CK-MB (CK-2) Rel Index Total Protein Albumin Urine WBC (Auto) Salicylates Acetaminophen Plasma/Serum Alcohol Allied health notes reviewed: nursing
--- NOTE | 2019-12-08 15:57 | Progress Note ---
Assessment and Plan Assessment and plan: 54-year-old female with a past medical history of Hypertension, Depression, Tobacco use Disorder, Alcohol use Disorder as confirmed by Daughter and pt's mother presents to the hospital status post cardiac arrest. Patient is from home and family called EMS at 22: 27 for the pt who had told family members that she was not feeling good and c/o her chronic hip pain. She urinated and then was speaking, then she " froze and was rigid " per daughter and she became unresponsive and stopped breathing. Immediately, family began CPR. EMS found pt in PEA. Upon their arrival patient in SinuS Tachycardia.. They were unable to intubate patient with a ET tube because she was clenching down therefore Joe airway placed. Patient received Narcan and Epinephrine. Patient's rhythm changed to PEA to sinus bradycardia, to PEA, then to sinus tach after receiving Narcan and Epinephrine. Per the ED physician who evaluated pt, Patient presented with a pulse, intermittent respirations, and bagging support via Joe airway with O2 sat of 100%. Accu-Chek of [address] Rodriguez spoke to patient's family (daughter and mother). MOther is Anh Jesus- [phone] and she would like to be called about pt's progress or notified about the pt. No seizure activity was noted. They deny that patient brown d any preceding infection symptoms, cough, fever, complaints of chest pain, shortness of breath, or any bleeding diathesis, melena, hematochezia, hematuria, hematemesis, or abdominal pain. Patient is a known alcoholic and continues to drink per daughter. No history could be obtained from the pt due to her mechanical ventilation. No previous hx of DVT/PE per mother and daughter. 12/04: Patient failed CPAP trial became apneic according to documentation. 12/05: No clinical change, continue current management, monitor H/H 12/06: Awaiting labs. No new changes at this time opens eyes. Surgeon discussed trach and PEG with family but they want to get more information about hospice which they have been directed to the nurse case management. 12/07: Acute respiratory failure with hypoxia Seizure disorder Presumed anoxic brain injury Alcohol abuse Acute metabolic encephalopathy/toxic encephalopathy BHAVANA secondary to vasomotor nephropathy Hypertension Status post cardiac arrest Distended abdomen, NGT to suction Transaminitis Acute cystitis Metabolic acidosis/alcoholic acidosis/lactic acidosis Sepsis Ischemic hepatitis Plan Continue Keppra at this time. RE-eval by neurology, no clinical change PEG and Trach being planned for If aggressive treatment is still sought after despite discussion with neurologist will proceed with PEG and trach. Give IV fluids due to worsening renal function Will discuss with pulmonary this morning considering patient's apneic status following CPAP trial. Patient was on restraints as she gets agitated when off sedation. Precedex was added yesterday. And Librium was increased to 50 mg every 8 hours. Patient had intact corneal and cough reflex and withdrew to pain lower extremity initially although out of hospital cardiac arrest was noted. It is less likely that this patient will have any meaningful recovery following extubation. Continue to monitor LFTs She is on antibiotics and this completed a few days 11/29/2019 ago no growth was noted on cultures no fever. We will continue off antibiotics at this time. Restraints Poor prognosis The high probability of a clinically significant, sudden or life threatening deterioration of the [pulmonary, neurology] system(s) required my full and direct attention, intervention and personal management. The aggregate critical care time was [35] minutes. This time is in addition to time spent performing reported procedures but includes the following: [v] Data Review and interpretation (v) Patient assessment and monitoring of vital signs [v] Documentation [v] Medication orders and management History Interval history: Patient seen and examined, remains unresponsive and on full respiratory support, No clinical change. Family holding off on trach and PEG want to discuss a little bit more about hospice per surgeons discussion with family. Hospitalist Physical - Physical exam Narrative exam: General appearance: Present: no acute distress, other (on vent with sedation, elderly female), eyes opens but not following any commands but unresponsive - EENT ENT: no oropharyngeal erythema, no poor dentition, no thrush - Neck Neck: Present: supple - Respiratory Respiratory effort: normal Respiratory: bilateral: diminished (On ventilator.) - Cardiovascular Rhythm: regular Heart Sounds: Absent: systolic murmur, diastolic murmur - Extremities Extremities: no ischemia, pulses intact, pulses symmetrical, normal temperature, normal color Extremity abnormal: edema Peripheral Pulses: within normal limits - Abdominal General gastrointestinal: deferred, non-tender, distended, hypoactive bowel sounds - Integumentary Integumentary: Present: clear, warm, dry Neuro: Unresponsive, tongue protruding. - Constitutional Vitals: Temp Pulse Resp BP Pulse Ox 98.3 F 99 H 12 143/91 100 12/08/19 12:00 12/08/19 14:00 12/08/19 14:00 12/08/19 14:00 12/08/19 13:30 General appearance: Present: no acute distress, other (on vent with sedation, elderly female) Results - Labs CBC & Chem 7: 12/07/19 03:44 12/07/19 03:44 Labs: Laboratory Last Values WBC 16.2 K/mm3 (4.5-11.0) H 12/07/19 03:44 RBC 2.56 M/mm3 (3.65-5.03) L 12/07/19 03:44 Hgb 7.1 gm/dl (10.1-14.3) L 12/07/19 03:44 Hct 22.3 % (30.3-42.9) L 12/07/19 03:44 MCV 87 fl (79-97) 12/07/19 03:44 MCH 28 pg (28-32) 12/07/19 03:44 MCHC 32 % (30-34) 12/07/19 03:44 RDW 19.4 % (13.2-15.2) H 12/07/19 03:44 Plt Count 782 K/mm3 (140-440) H 12/07/19 03:44 Lymph % (Auto) 11.3 % (13.4-35.0) L 12/04/19 07:45 [place] % (Auto) 15.2 % (0.0-7.3) H 12/04/19 07:45 Eos % (Auto) 0.5 % (0.0-4.3) 12/04/19 07:45 Baso % (Auto) 0.6 % (0.0-1.8) 12/04/19 07:45 Lymph # 1.8 K/mm3 (1.2-5.4) 12/04/19 07:45 [place] # 2.4 K/mm3 (0.0-0.8) H 12/04/19 07:45 Eos # 0.1 K/mm3 (0.0-0.4) 12/04/19 07:45 Baso # 0.1 K/mm3 (0.0-0.1) 12/04/19 07:45 Add Manual Diff Complete 12/04/19 07:45 Total Counted 100 12/01/19 08:23 Seg Neutrophils % 72.4 % (40.0-70.0) H 12/04/19 07:45 Seg Neuts % (Manual) 91.0 % (40.0-70.0) H 12/01/19 08:23 Band Neutrophils % 0 % 12/01/19 08:23 Lymphocytes % (Manual) 3.0 % (13.4-35.0) L 12/01/19 08:23 Reactive Lymphs % (Man) 1.0 % 12/01/19 08:23 Monocytes % (Manual) 5.0 % (0.0-7.3) 12/01/19 08:23 Eosinophils % (Manual) 0 % (0.0-4.3) 12/01/19 08:23 Basophils % (Manual) 0 % (0.0-1.8) 12/01/19 08:23 Metamyelocytes % 0 % 12/01/19 08:23 Myelocytes % 0 % 12/01/19 08:23 Promyelocytes % 0 % 12/01/19 08:23 Blast Cells % 0 % 12/01/19 08:23 Nucleated RBC % Not Reportable 12/01/19 08:23 Seg Neutrophils # 11.5 K/mm3 (1.8-7.7) H 12/04/19 07:45 Seg Neutrophils # Man 20.7 K/mm3 (1.8-7.7) H 12/01/19 08:23 Band Neutrophils # 0.0 K/mm3 12/01/19 08:23 Lymphocytes # (Manual) 0.7 K/mm3 (1.2-5.4) L 12/01/19 08:23 Abs React Lymphs (Man) 0.2 K/mm3 12/01/19 08:23 Monocytes # (Manual) 1.1 K/mm3 (0.0-0.8) H 12/01/19 08:23 Eosinophils # (Manual) 0.0 K/mm3 (0.0-0.4) 12/01/19 08:23 Basophils # (Manual) 0.0 K/mm3 (0.0-0.1) 12/01/19 08:23 Metamyelocytes # 0.0 K/mm3 12/01/19 08:23 Myelocytes # 0.0 K/mm3 12/01/19 08:23 Promyelocytes # 0.0 K/mm3 12/01/19 08:23 Blast Cells # 0.0 K/mm3 12/01/19 08:23 WBC Morphology Not Reportable 12/01/19 08:23 Hypersegmented Neuts Not Reportable 12/01/19 08:23 Hyposegmented Neuts Not Reportable 12/01/19 08:23 Hypogranular Neuts Not Reportable 12/01/19 08:23 Smudge Cells Not Reportable 12/01/19 08:23 Toxic Granulation Not Reportable 12/01/19 08:23 Toxic Vacuolation Not Reportable 12/01/19 08:23 Dohle Bodies Not Reportable 12/01/19 08:23 Pelger-Huet Anomaly Not Reportable 12/01/19 08:23 Dominique Rods Not Reportable 12/01/19 08:23 Platelet Estimate Consistent w auto 12/01/19 08:23 Clumped Platelets Not Reportable 12/01/19 08:23 Plt Clumps, EDTA Not Reportable 12/01/19 08:23 Large Platelets Not Reportable 12/01/19 08:23 Giant Platelets Few 12/01/19 08:23 Platelet Satelliting Not Reportable 12/01/19 08:23 Plt Morphology Comment Not Reportable 12/01/19 08:23 RBC Morphology Not Reportable 12/01/19 08:23 Dimorphic RBCs Not Reportable 12/01/19 08:23 Polychromasia Few 12/01/19 08:23 Hypochromasia Few 12/01/19 08:23 Poikilocytosis Not Reportable 12/01/19 08:23 Anisocytosis Not Reportable 12/01/19 08:23 Microcytosis Not Reportable 12/01/19 08:23 Macrocytosis Not Reportable 12/01/19 08:23 Spherocytes Not Reportable 12/01/19 08:23 Pappenheimer Bodies Not Reportable 12/01/19 08:23 Sickle Cells Not Reportable 12/01/19 08:23 Target Cells 1+ 12/01/19 08:23 Tear Drop Cells Not Reportable 12/01/19 08:23 Ovalocytes Not Reportable 12/01/19 08:23 Helmet Cells Not Reportable 12/01/19 08:23 Frias-Hobgood Bodies Not Reportable 12/01/19 08:23 Ganado Rings Not Reportable 12/01/19 08:23 Jamshid Cells Not Reportable 12/01/19 08:23 Bite Cells Not Reportable 12/01/19 08:23 Crenated Cell Not Reportable 12/01/19 08:23 Elliptocytes Not Reportable 12/01/19 08:23 Acanthocytes (Spur) Not Reportable 12/01/19 08:23 Rouleaux Not Reportable 12/01/19 08:23 Hemoglobin C Crystals Not Reportable 12/01/19 08:23 Schistocytes Not Reportable 12/01/19 08:23 Malaria parasites Not Reportable 12/01/19 08:23 Gregg Bodies Not Reportable 12/01/19 08:23 Hem Pathologist Commnt No 12/01/19 08:23 PT 17.0 Sec. (12.2-14.9) H 11/23/19 03:47 INR 1.36 (0.87-1.13) H 11/23/19 03:47 APTT 128.2 Sec. (24.2-36.6) H* 11/23/19 03:47 Heparin Anti-Xa Level 0.31 U.I./ml (0.3-0.7) 11/23/19 09:03 ABG pH 7.437 pH Units (7.350-7.450) 12/03/19 20:00 ABG pCO2 50.7 mm Hg 12/03/19 20:00 ABG pO2 68.3 mm Hg (80.0-90.0) L 12/03/19 20:00 ABG HCO3 33.5 mmol/L (20.0-26.0) H 12/03/19 20:00 ABG O2 Saturation 93.5 % (95.0-99.0) L 12/03/19 20:00 ABG O2 Content 9.5 (0.0-44) 12/03/19 20:00 ABG Base Excess 8.4 mmol/L (-2.0-3.0) H 12/03/19 20:00 ABG Hemoglobin 7.3 gm/dl (12.0-16.0) L 12/03/19 20:00 ABG Carboxyhemoglobin 2.3 % (0.0-5.0) 12/03/19 20:00 ABG Methemoglobin 0.4 % (0.0-1.5) 12/03/19 20:00 Oxyhemoglobin 90.9 % (95.0-99.0) L 12/03/19 20:00 FiO2 30 % 12/03/19 20:00 Sodium 141 mmol/L (137-145) 12/07/19 03:44 Potassium 4.8 mmol/L (3.6-5.0) 12/07/19 03:44 Chloride 95.6 mmol/L (98-107) L 12/07/19 03:44 Carbon Dioxide 29 mmol/L (22-30) 12/07/19 03:44 Anion Gap 21 mmol/L 12/07/19 03:44 BUN 56 mg/dL (7-17) H 12/07/19 03:44 Creatinine 1.4 mg/dL (0.7-1.2) H 12/07/19 03:44 Estimated GFR 47 ml/min 12/07/19 03:44 BUN/Creatinine Ratio 40 % 12/07/19 03:44 Glucose 120 mg/dL (65-100) H 12/07/19 03:44 POC Glucose 129 (70-105) H 12/08/19 12:04 Lactic Acid 1.80 mmol/L (0.7-2.0) 11/25/19 05:05 Calcium 10.3 mg/dL (8.4-10.2) H 12/07/19 03:44 Ionized Calcium 4.5 mg/dL (4.8-5.6) L 11/23/19 06:32 Phosphorus 4.20 mg/dL (2.5-4.5) D 11/28/19 08:59 Magnesium 2.30 mg/dL (1.7-2.3) 11/29/19 13:41 Total Bilirubin 0.60 mg/dL (0.1-1.2) 12/06/19 04:14 AST 89 units/L (5-40) H 12/06/19 04:14 ALT 98 units/L (7-56) H 12/06/19 04:14 Alkaline Phosphatase 476 units/L (35-129) H 12/06/19 04:14 Ammonia 42.0 umol/L (25-60) 11/29/19 13:41 Total Creatine Kinase 139 units/L (30-135) H 11/22/19 23:27 CK-MB (CK-2) 8.3 ng/mL (0.0-4.0) H 11/22/19 23:27 CK-MB (CK-2) Rel Index 5.9 (0-4) H 11/22/19 23:27 Troponin T < 0.010 ng/mL (0.00-0.029) 11/22/19 23:27 Total Protein 7.3 g/dL (6.3-8.2) 12/06/19 04:14 Albumin 2.8 g/dL (3.9-5) L 12/06/19 04:14 Albumin/Globulin Ratio 0.6 % 12/06/19 04:14 Lipase 18 units/L (13-60) 11/23/19 00:34 Procalcitonin 1.09 ng/mL (<0.15) 11/23/19 04:53 Urine Color Yellow (Yellow) 11/22/19 23:17 Urine Turbidity Cloudy (Clear) 11/22/19 23:17 Urine pH 6.0 (5.0-7.0) 11/22/19 23:17 Ur Specific [place] 1.010 (1.003-1.030) 11/22/19 23:17 Urine Protein >500 mg/dL (Negative) 11/22/19 23:17 Urine Glucose (UA) >=500 mg/dL (Negative) 11/22/19 23:17 Urine Ketones 20 mg/dL (Negative) 11/22/19 23:17 Urine Blood Mod (Negative) 11/22/19 23:17 Urine Nitrite Neg (Negative) 11/22/19 23:17 Urine Bilirubin Neg (Negative) 11/22/19 23:17 Urine Urobilinogen 4.0 mg/dL (<2.0) 11/22/19 23:17 Ur Leukocyte Esterase Neg (Negative) 11/22/19 23:17 Urine WBC (Auto) 40.0 /HPF (0.0-6.0) H 11/22/19 23:17 Urine RBC (Auto) 10.0 /HPF (0.0-6.0) 11/22/19 23:17 U Epithel Cells (Auto) 1.0 /HPF (0-13.0) 11/22/19 23:17 Urine Bacteria (Auto) 2+ /HPF (Negative) 11/22/19 23:17 Urine Mucus Few /HPF 11/22/19 23:17 Salicylates < 0.3 mg/dL (2.8-20.0) L 11/22/19 23:27 Urine Opiates Screen Presumptive negative 11/22/19 23:17 Urine Methadone Screen Presumptive negative 11/22/19 23:17 Acetaminophen < 5.0 ug/mL (10.0-30.0) L 11/22/19 23:27 Ur Barbiturates Screen Presumptive negative 11/22/19 23:17 Ur Phencyclidine Scrn Presumptive negative 11/22/19 23:17 Ur Amphetamines Screen Presumptive negative 11/22/19 23:17 U Benzodiazepines Scrn Presumptive negative 11/22/19 23:17 Urine Cocaine Screen Presumptive negative 11/22/19 23:17 U Marijuana (THC) Screen Presumptive negative 11/22/19 23:17 Drugs of Abuse Note Disclamer 11/22/19 23:17 Plasma/Serum Alcohol 0.08 % (0-0.07) H 11/22/19 23:27 Hepatitis A IgM Ab Non-reactive (NonReactive) 11/23/19 01:19 Hep Bs Antigen Non-reactive (Negative) 11/23/19 01:19 Hep B Core IgM Ab Non-reactive (NonReactive) 11/23/19 01:19 Hepatitis C Antibody Non-reactive (NonReactive) 11/23/19 01:19 - Diagnostic Impressions Diagnostic Impressions: Echocardiogram 11/23/19 03:58 Transthoracic Echocardiogram Indication: Cardiac arrest BP: 131/89 HR: 115 Conclusions *The study quality is technically difficult. *Global left ventricular wall motion and contractility are within normal limits. *The estimated ejection fraction is 55-60%. *Abnormal left ventricular diastolic filling is observed, consistent with impaired relaxation. *There is no pericardial effusion. Findings Procedure Info: The study quality is technically difficult. The study was technically limited due to the patient's inability to lay in the left lateral decubitus position. Left Ventricle: The left ventricular chamber size is normal. There is no left ventricular hypertrophy. Global left ventricular wall motion and contractility are within normal limits. Global left ventricular systolic function is normal. The estimated ejection fraction is 55-60%. Abnormal left ventricular diastolic filling is observed, consistent with impaired relaxation. Left Atrium: The left atrial chamber size is normal. Aortic Valve: The aortic valve leaflets are mildly thickened. Mitral Valve: The mitral valve leaflets are mildly thickened. There is no evidence of mitral regurgitation. Tricuspid Valve: The tricuspid valve leaflets are normal. There is trace tricuspid regurgitation. The right ventricular systolic pressure is calculated at 33 mmHg. Pulmonic Valve: The pulmonic valve appears normal. Pericardium: The pericardium appears normal. There is no pericardial effusion. Aorta: The aorta appears normal. Venous: The inferior vena cava appears normal in size. Measurements Chambers 2D Name Value Normal Range IVSd (2D) 0.94 cm (0.6 - 1.1) LVPWd (2D) 0.81 cm (0.6 - 1.1) LVIDd (2D) 3.6 cm (3.7 - 5.6) LVIDs (2D) 2.27 cm (2 - 3.8) LV FS (2D) 36.93 % - EF Teichholz (2D) 67.76 % - Ao root diameter (2D) 3.03 cm (2 - 3.7) Volumes/Mass Name Value Normal Range LA ESV SP 4CH (A/L) 16.89 ml - LA ESV SP 4CH (MOD) 15.52 ml - Diastolic/Systolic Function Name Value Normal Range MV E-wave Vmax 0.55 m/sec - MV deceleration time 200.89 msec - MV A-wave Vmax 0.68 m/sec - MV E:A ratio 0.82 ratio - Aortic Valve Name Value Normal Range AV Vmax 1.1 m/sec - AV VTI 15.9 cm - AV peak gradient 4.86 mmHg - AV mean gradient 2.59 mmHg - LVOT diameter 2 cm - LVOT Vmax 1.03 m/sec - LVOT VTI 15.87 cm - LVOT peak gradient 4.24 mmHg - LVOT mean gradient 2.41 mmHg - SV LVOT 49.77 ml - JOSÉ MIGUEL (continuity Vmax) 2.93 cm2 - JOSÉ MIGUEL (continuity VTI) 3.13 cm2 - Tricuspid Valve Name Value Normal Range TR Vmax 2.74 m/sec - TR peak gradient 303 mmHg - RAP 3 mmHg - RVSP 33 mmHg - IVC diameter 1.77 cm (1.2 - 2.3) Pulmonic Valve/Qp:Qs Name Value Normal Range PV Vmax 0.77 m/sec - PV peak gradient 2.4 mmHg - PV acceleration time 114.18 msec - Dela Cruz/IV: Voiding Method External Female Catheter IV Catheter Type [Right Wrist] Peripheral IV IV Catheter Type [Left Wrist] Peripheral IV IV Catheter Type [Left Peripheral IV Antecubital] IV Catheter Type [Right INT / Saline Lock Forearm] IV Catheter Type [Left Hand] Peripheral IV Active Medications - Current Medications Current Medications: Generic Name Dose Route Start Last Admin Trade Name Freq PRN Reason Stop Dose Admin Acetaminophen 650 mg 12/06/19 10:25 12/06/19 11:22 Tylenol FEEDTUBE 650 mg Q6H PRN Administration TEMP >/=100.3 Lipase/Protease/Amylase 1 each 11/23/19 11:[address] 10,500 Unit FEEDTUBE PRN PRN For Clogged Feeding Tube Chlordiazepoxide HCl 50 mg 12/04/19 14:00 12/08/19 13:57 Librium PO 50 mg Q8H LUCHO Administration Fentanyl 25 mcg 12/04/19 17:00 12/07/19 16:07 Duragesic TD 25 mcg Q3D LUCHO Administration Fentanyl 50 mcg 12/05/19 02:10 Sublimaze IV Q10MIN PRN ANALGESIA Heparin Sodium (Porcine) 5,000 unit 11/23/19 22:00 12/08/19 10:52 Heparin SUB-Q 5,000 unit Q12HR LUCHO Administration Hydralazine HCl 10 mg 11/24/19 00:45 12/08/19 05:51 Apresoline IV 10 mg Q6H PRN Administration SBP > 160 Hydrophilic Ointment 1 applic 11/22/19 23:23 Vaseline Lip Therapy TP Q2HR PRN Dry Lips Hydroxyzine Pamoate 25 mg 12/06/19 10:00 12/08/19 10:52 Vistaril PO 25 mg BID LUCHO Administration Fentanyl Citrate 2,000 mcg in 100 mls @ 2.74 mls/hr 12/05/19 03:00 12/06/19 20:33 Fentanyl Drip Premix IV 2 mcg/kg/hr TITR LUCHO 5.48 mls/hr Administration Protocol 1 MCG/KG/HR Lansoprazole 30 mg 11/27/19 10:00 12/08/19 10:52 Prevacid Solutab FEEDTUBE 30 mg QDAY LUCHO Administration Levetiracetam 500 mg 11/29/19 10:00 12/08/19 10:52 Keppra PO 500 mg BID LUCHO Administration Lorazepam 2 mg 11/26/19 11:09 12/08/19 08:02 Ativan IV 2 mg Q4H PRN Administration Agitation Mirtazapine 30 mg 12/06/19 10:00 12/08/19 10:52 Remeron PO 30 mg DAILY LUCHO Administration Multi-Ingred Cream/Lotion/Oil/Oint 1 applic 11/22/19 23:23 Artificial Tears Ophth Oint OU Q4HR PRN Dry Eye(s) Quetiapine Fumarate 300 mg 12/07/19 22:00 12/07/19 21:52 Seroquel PO 300 mg QHS LUCHO Administration Sertraline HCl 25 mg 12/06/19 10:00 12/08/19 10:52 Zoloft PO 25 mg QDAY LUCHO Administration Simple Syrup 15 ml 11/23/19 11:50 Simple Syrup FEEDTUBE PRN PRN Hypoglycemia Simple Syrup 30 ml 11/23/19 11:50 Simple Syrup FEEDTUBE PRN PRN Hypoglycemia Sodium Bicarbonate 325 mg 11/23/19 11:50 Sodium Bicarbonate FEEDTUBE PRN PRN For Clogged Feeding Tube Nutrition/Malnutrition Assess - Dietary Evaluation Nutrition/Malnutrition Findings: Nutrition Notes Start: 11/23/19 11:2 9 Freq: Status: Active Protocol: Document 12/05/19 13:24 LM (Rec: 12/05/19 13:26 LM [email or web address]) Nutrition Notes Initial or Follow up Reassessment Current Diagnosis Hypertension Other Pertinent Diagnosis Cardaic arrest, ETOH dependence, UTI Current Diet Vital AF 1.2 at 50 ml/hr Labs/Tests 12/03 Na 140 Pertinent Medications Reviewed Height 5 ft 6 in Weight 54.8 kg [place] Body Weight (kg) 59.09 BMI 19.5 Subjective/Other Information Vital running at 50 ml/hr. pt tolerating. Percent of energy/protein needs met: 100%/100% Burn Absent Trauma Absent GI Symptoms None Current % PO Negligible Minimum of two criteria No Muscle Mass Mild Depletion (non-severe) #1 Nutrition Diagnosis Inadequate oral intake Diagnosis Progress(for reassessment Continues documentation) Is patient on ventilator? Yes Is Patient Ambulatory and/or Out of Bed No REE-([facility]-confined to bed) 1402.224 Calculation Used for Recommendations [facility] Additional Notes Protein: 66-110g (1.2-2g/kg) Fluid: 1 ml/kcal Nutrition Intervention Change Diet Order: TF Nutrition Support: Vital AF 1.2 at 50 ml/hr Flush 200 ml q4h for hypernatremia Flush 80 ml q4h once hypernatremia resolves Kcal 1,440 Protein (gm) 90 Fluid (mL) 973 Goal #1 TF tolerance Goal #2 Meet at least 80% of energy and protein needs via TF Anticipated Discharge Needs: unable to determine at this time Follow-Up By: 12/12/19 Additional Comments F/U for TF tolerance
[2019-12-08] MEDS ORDERED: SODIUM CHLORIDE 0.9% 1000 ML 1,000 ML IV SCH (16:15)
[2019-12-08] MEDS: QUEtiapine 100 MG TAB PO SCH (22:11)
[2019-12-09] MEDS: chlordiazePOXIDE 25 MG CAP PO SCH ×4 (06:06→22:26)
[2019-12-09 06:57] LABS: Calcium 9.9 mg/dL (8.4-10.2)
[2019-12-09] MEDS: levETIRAcetam 500 MG/5 ML ORAL LIQD PO SCH ×2 (10:39→22:25)
[2019-12-09] MEDS: LANSOPRAZOLE 30 MG SOLUTAB FEEDTUBE SCH (10:39)
[2019-12-09] MEDS: hydrOXYzine PAMOATE 25 MG CAP PO SCH ×2 (10:40→22:25)
[2019-12-09] MEDS: MIRTAZAPINE 30 MG TAB PO SCH (10:40)
[2019-12-09] MEDS: HEPARIN 5,000 UNIT/1 ML VIAL SUB-Q SCH ×2 (10:40→22:26)
[2019-12-09] MEDS: SERTRALINE 25 MG TAB PO SCH (10:40)
--- NOTE | 2019-12-09 14:16 | Progress Note ---
Assessment and Plan Acute cardiopulmonary arrest with ROSC Acute hypoxemic respiratory failure on MVS Acute metabolic-toxic encephalopathy Metabolic acidosis/alcoholic acidosis/Lactic acidosis Ischemic hepatitis Leucocytosis with lactic acidosis Tobacco use disorder ALcohol use Disorder Hypokalemia High grade fevers - begin Reglan for G.I. motility - await evaluation for trach and PEG - CXR reviewed and addressed - continue Librium but increase to 75 mg po q8h - continue to rest on AC mode qhs - continue Seroquel for tentative delirium and to spare IV sedation - get ABG prn at this point - continue empiric Antibiotics per ID recommendations; de-escalate based on HILARIO /sensitivities / clinical progress - CIWA protocol - rest opn AC mode qhs for now - VAP bundle addressed (continue aspiration precautions, HOB>40) - ontinue daily SAT's and assessment for readiness for SBT (For PSV trial today) - Continue Intermittent sedation until patient's neurologic state can be better evaluated - begin Seroquel for agitation / to spare IV sedatives - Continue VTE and Stress ulcer prophylaxis - Continue enteric nutritional support. Monitor glycemic control, with target blood glucose 140-180 mg/dL while critically ill (Avoid hypoglycemia) - Continue daily SAT assessment as tolerated - Continue to wean supplemental oxygen for target O2 sat's > 90% - ABG and CXR prn - continue bronchodilators with p[ulmonary hygiene per RT - Continue to trend leukocytosis and lactic acidosis - Continue to treat for hepatic encephalopathy- especially with elevated ammonia levels- lactulose - Continue thiamine, multivitamin and electrolyte replacement - Continue to avoid nephrotoxins, adjust all medications fro GFR and CrCL - Continue bronchodilators with pulmonary hygiene - Continue to avoid benzodiazepines , as much as possible, to reduce the possibility of delirium - Continue prn analgesia per CPOT score - Continue to maintain of sleep-wake cycle, avoid delirium - PT/OT/ROM exercises- awaiting PT/OT evaluation - Continue mobility protocol and skin assessment per protocol for pressure ulcer prevention - Continue to monitor for clinical seizures - Continue Nicotine withdrawal precautions, alcohol withdrawal precautions - continue other care per attending / other consultants ..... re-evaluate in am & prn CONDITION: CRITICAL PROGNOSIS: GUARDED CODE STATUS: FULL CODE The high probability of a clinically significant, sudden or life-threatening deterioration of the [respiratory, cardiovascular,GI/hepatology] system(s) required my full and direct attention, intervention and personal management. The aggregate critical care time was [35] minutes without overlap. Time includes spent on; [x] Data Review and interpretation [x] Patient assessment and monitoring of vital signs [x] Documentation [x] Medication orders and management Subjective Date of service: 12/09/19 Principal diagnosis: Ac cardiopulmonary arrest; Ac hypoxemic resp failure; Acute encephalopathy Interval history: Patient is seen today for: Acute cardiopulmonary arrest with ROSC; Acute hypo xemic respiratory failure; Acute metabolic-toxic encephalopathy; Ischemic hepatitis; Leucocytosis with lactic acidosis; Tobacco use disorder; Alcohol use Disorder; Hypokalemia; High grade fevers Seen and examined at bedside; 24hour events reviewed; nursing and respiratory care staff consulted; no adverse overnight events reported to me; resting peacefully in bed; + emesis X 1 earlier; AMS is persistent; weaning tenuously still Objective Vital Signs - 12hr 12/09/19 12/09/19 12/09/19 02:30 03:00 03:30 Temperature Pulse Rate 99 H 100 H 98 H Respiratory 12 12 12 Rate Blood Pressure 153/91 141/86 148/93 O2 Sat by Pulse 100 Oximetry 12/09/19 12/09/19 12/09/19 04:00 04:30 05:00 Temperature 99.0 F Pulse Rate 94 H 96 H 96 H Respiratory 12 12 12 Rate Blood Pressure 150/91 153/92 153/91 O2 Sat by Pulse 100 100 Oximetry 12/09/19 12/09/19 12/09/19 05:28 05:30 06:00 Temperature Pulse Rate 97 H 99 H 98 H Respiratory 12 12 Rate Blood Pressure 161/98 161/98 137/86 O2 Sat by Pulse 100 100 100 Oximetry 12/09/19 12/09/19 12/09/19 06:30 07:00 07:30 Temperature Pulse Rate 99 H 101 H 99 H Respiratory 13 12 12 Rate Blood Pressure 143/90 150/93 140/83 O2 Sat by Pulse 100 100 100 Oximetry 12/09/19 12/09/19 12/09/19 07:36 08:00 08:30 Temperature 98.2 F Pulse Rate 102 H 104 H 97 H Respiratory 12 12 Rate Blood Pressure 140/83 146/92 144/90 O2 Sat by Pulse 100 100 100 Oximetry 12/09/19 12/09/19 12/09/19 09:00 09:30 10:00 Temperature Pulse Rate 99 H 104 H 96 H Respiratory 11 L 12 12 Rate Blood Pressure 133/82 142/86 142/83 O2 Sat by Pulse 100 100 Oximetry 12/09/19 12/09/19 12/09/19 10:30 11:00 11:30 Temperature Pulse Rate 94 H 93 H 96 H Respiratory 12 14 12 Rate Blood Pressure 137/82 141/89 134/88 O2 Sat by Pulse 100 100 100 Oximetry 12/09/19 12/09/19 12/09/19 11:56 11:57 12:00 Temperature 98.0 F Pulse Rate 93 H 104 H Respiratory 12 Rate Blood Pressure 142/88 O2 Sat by Pulse 100 98 Oximetry 12/09/19 12/09/19 12/09/19 12:30 13:00 13:30 Temperature Pulse Rate 100 H 95 H 91 H Respiratory 12 12 16 Rate Blood Pressure 146/86 143/91 160/96 O2 Sat by Pulse 98 100 Oximetry Constitutional: no acute distress, other (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, orally intuabted ETT at 23 cm at the lip to mVS, mild dys-synchrony) Eyes: non-icteric ENT: oropharynx moist, other (ETT 23 cm AMALIA) Neck: supple, no lymphadenopathy, no JVD Effort: mildly labored Ascultation: Bilateral: diminished breath sounds, rhonchi Percussion: Bilateral: not dull Cardiovascular: regular rate and rhythm (tachycardia), other (S1,S2) Gastrointestinal: normoactive bowel sounds, soft, non-tender, non-distended Integumentary: normal Extremities: no cyanosis, no edema, pulses normal, no ischemia or petechiae Neurologic: unable to assess, other (awake but not tracking voice ) Psychiatric: other (Psychiatric: Unable to assess) CBC and BMP: 12/13/19 07:48 12/13/19 07:48 ABG, PT/INR, D-dimer: ABG ABG pH 7.437 pH Units (7.350-7.450) 12/03/19 20:00 ABG pCO2 50.7 mm Hg 12/03/19 20:00 ABG pO2 68.3 mm Hg (80.0-90.0) L 12/03/19 20:00 ABG O2 Saturation 93.5 % (95.0-99.0) L 03/16/20 20:00 PT/INR, D-dimer PT 17.0 Sec. (12.2-14.9) H 11/23/19 03:47 INR 1.36 (0.87-1.13) H 11/23/19 03:47 Abnormal lab findings: Abnormal Labs 11/22/19 11/22/19 11/22/19 23:17 23:18 23:27 WBC 21.2 H RBC 3.59 L Hgb 9.8 L Hct MCH 27 L RDW 18.6 H Plt Count 454 H Lymph % (Auto) [place] % (Auto) [place] # Seg Neutrophils % Seg Neuts % (Manual) 86.0 H Lymphocytes % (Manual) 9.0 L Seg Neutrophils # Seg Neutrophils # Man 18.2 H Lymphocytes # (Manual) Monocytes # (Manual) 1.1 H PT INR APTT ABG pH ABG pO2 ABG HCO3 ABG O2 Saturation ABG Base Excess ABG Hemoglobin Oxyhemoglobin Sodium Potassium Chloride Carbon Dioxide BUN Creatinine Glucose POC Glucose 53 L Lactic Acid Calcium Ionized Calcium Phosphorus Magnesium Total Bilirubin AST ALT Alkaline Phosphatase Ammonia Total Creatine Kinase CK-MB (CK-2) CK-MB (CK-2) Rel Index Total Protein Albumin Urine WBC (Auto) 40.0 H Salicylates Acetaminophen Plasma/Serum Alcohol 11/22/19 11/22/19 11/22/19 23:27 23:27 23:27 WBC RBC Hgb Hct MCH RDW Plt Count Lymph % (Auto) [place] % (Auto) [place] # Seg Neutrophils % Seg Neuts % (Manual) Lymphocytes % (Manual) Seg Neutrophils # Seg Neutrophils # Man Lymphocytes # (Manual) Monocytes # (Manual) PT INR APTT ABG pH ABG pO2 ABG HCO3 ABG O2 Saturation ABG Base Excess ABG Hemoglobin Oxyhemoglobin Sodium Potassium 2.4 L* Chloride 85.1 L Carbon Dioxide 19 L BUN Creatinine 0.5 L Glucose 261 H POC Glucose Lactic Acid Calcium Ionized Calcium Phosphorus Magnesium Total Bilirubin AST 609 H ALT 152 H Alkaline Phosphatase 160 H Ammonia 117.0 H Total Creatine Kinase 139 H CK-MB (CK-2) 8.3 H CK-MB (CK-2) Rel Index 5.9 H Total Protein Albumin 3.6 L Urine WBC (Auto) Salicylates < 0.3 L Acetaminophen Plasma/Serum Alcohol 11/22/19 11/22/19 11/23/19 23:27 23:27 01:10 WBC RBC Hgb Hct MCH RDW Plt Count Lymph % (Auto) [place] % (Auto) [place] # Seg Neutrophils % Seg Neuts % (Manual) Lymphocytes % (Manual) Seg Neutrophils # Seg Neutrophils # Man Lymphocytes # (Manual) Monocytes # (Manual) PT INR APTT ABG pH 7.273 L ABG pO2 209.7 H ABG HCO3 ABG O2 Saturation 99.2 H ABG Base Excess -3.9 L ABG Hemoglobin 10.6 L Oxyhemoglobin 93.9 L Sodium Potassium Chloride Carbon Dioxide BUN Creatinine Glucose POC Glucose Lactic Acid Calcium Ionized Calcium Phosphorus Magnesium Total Bilirubin AST ALT Alkaline Phosphatase Ammonia Total Creatine Kinase CK-MB (CK-2) CK-MB (CK-2) Rel Index Total Protein Albumin Urine WBC (Auto) Salicylates Acetaminophen < 5.0 L Plasma/Serum Alcohol 0.08 H 11/23/19 11/23/19 11/23/19 01:19 01:19 03:47 WBC RBC Hgb Hct MCH RDW Plt Count Lymph % (Auto) [place] % (Auto) [place] # Seg Neutrophils % Seg Neuts % (Manual) Lymphocytes % (Manual) Seg Neutrophils # Seg Neutrophils # Man Lymphocytes # (Manual) Monocytes # (Manual) PT 16.3 H INR 1.29 H APTT ABG pH ABG pO2 ABG HCO3 ABG O2 Saturation ABG Base Excess ABG Hemoglobin Oxyhemoglobin Sodium Potassium Chloride Carbon Dioxide BUN Creatinine Glucose POC Glucose Lactic Acid 2.10 H* 5.00 H* Calcium Ionized Calcium Phosphorus Magnesium Total Bilirubin AST ALT Alkaline Phosphatase Ammonia Total Creatine Kinase CK-MB (CK-2) CK-MB (CK-2) Rel Index Total Protein Albumin Urine WBC (Auto) Salicylates Acetaminophen Plasma/Serum Alcohol 11/23/19 11/23/19 11/23/19 03:47 03:47 04:53 WBC RBC Hgb 9.4 L Hct MCH RDW Plt Count Lymph % (Auto) [place] % (Auto) [place] # Seg Neutrophils % Seg Neuts % (Manual) Lymphocytes % (Manual) Seg Neutrophils # Seg Neutrophils # Man Lymphocytes # (Manual) Monocytes # (Manual) PT 17.0 H INR 1.36 H APTT 128.2 H* ABG pH ABG pO2 ABG HCO3 ABG O2 Saturation ABG Base Excess ABG Hemoglobin Oxyhemoglobin Sodium Potassium Chloride Carbon Dioxide 18 L BUN Creatinine 0.5 L Glucose 105 H POC Glucose Lactic Acid Calcium 8.3 L Ionized Calcium Phosphorus 2.40 L Magnesium Total Bilirubin 1.30 H AST 761 H ALT 158 H Alkaline Phosphatase 143 H Ammonia Total Creatine Kinase CK-MB (CK-2) CK-MB (CK-2) Rel Index Total Protein Albumin 2.8 L Urine WBC (Auto) Salicylates Acetaminophen Plasma/Serum Alcohol 11/23/19 11/23/19 11/23/19 05:12 06:32 06:32 WBC 16.8 H RBC 3.31 L Hgb 8.9 L Hct 28.7 L MCH 27 L RDW 18.6 H Plt Count Lymph % (Auto) [place] % (Auto) [place] # Seg Neutrophils % Seg Neuts % (Manual) 94.0 H Lymphocytes % (Manual) 1.0 L Seg Neutrophils # Seg Neutrophils # Man 15.8 H Lymphocytes # (Manual) 0.2 L Monocytes # (Manual) PT INR APTT ABG pH ABG pO2 ABG HCO3 ABG O2 Saturation ABG Base Excess -3.2 L ABG Hemoglobin 9.0 L Oxyhemoglobin 93.6 L Sodium Potassium Chloride Carbon Dioxide BUN Creatinine Glucose POC Glucose Lactic Acid Calcium Ionized Calcium 4.5 L Phosphorus Magnesium Total Bilirubin AST ALT Alkaline Phosphatase Ammonia Total Creatine Kinase CK-MB (CK-2) CK-MB (CK-2) Rel Index Total Protein Albumin Urine WBC (Auto) Salicylates Acetaminophen Plasma/Serum Alcohol 11/23/19 11/24/19 11/24/19 06:32 04:35 04:35 WBC RBC Hgb Hct MCH RDW Plt Count Lymph % (Auto) [place] % (Auto) [place] # Seg Neutrophils % Seg Neuts % (Manual) Lymphocytes % (Manual) Seg Neutrophils # Seg Neutrophils # Man Lymphocytes # (Manual) Monocytes # (Manual) PT INR APTT ABG pH ABG pO2 ABG HCO3 ABG O2 Saturation ABG Base Excess ABG Hemoglobin Oxyhemoglobin Sodium Potassium Chloride Carbon Dioxide BUN Creatinine Glucose POC Glucose Lactic Acid 3.30 H* Calcium Ionized Calcium Phosphorus Magnesium 1.40 L Total Bilirubin AST ALT Alkaline Phosphatase Ammonia 98.0 H Total Creatine Kinase CK-MB (CK-2) CK-MB (CK-2) Rel Index Total Protein Albumin Urine WBC (Auto) Salicylates Acetaminophen Plasma/Serum Alcohol 11/24/19 11/25/19 11/25/19 05:22 04:34 05:05 WBC 17.3 H RBC 2.88 L Hgb 7.8 L Hct 24.6 L MCH 27 L RDW 18.5 H Plt Count Lymph % (Auto) 7.7 L [place] % (Auto) 9.7 H [place] # 1.7 H Seg Neutrophils % 82.2 H Seg Neuts % (Manual) Lymphocytes % (Manual) Seg Neutrophils # 14.2 H Seg Neutrophils # Man Lymphocytes # (Manual) Monocytes # (Manual) PT INR APTT ABG pH 7.475 H ABG pO2 ABG HCO3 29.4 H 32.3 H ABG O2 Saturation ABG Base Excess 5.4 H 6.9 H ABG Hemoglobin 9.0 L 10.6 L Oxyhemoglobin 94.3 L Sodium Potassium Chloride Carbon Dioxide BUN Creatinine Glucose POC Glucose Lactic Acid Calcium Ionized Calcium Phosphorus Magnesium Total Bilirubin AST ALT Alkaline Phosphatase Ammonia Total Creatine Kinase CK-MB (CK-2) CK-MB (CK-2) Rel Index Total Protein Albumin Urine WBC (Auto) Salicylates Acetaminophen Plasma/Serum Alcohol 11/25/19 11/25/19 11/26/19 05:05 22:46 03:31 WBC RBC Hgb Hct MCH RDW Plt Count Lymph % (Auto) [place] % (Auto) [place] # Seg Neutrophils % Seg Neuts % (Manual) Lymphocytes % (Manual) Seg Neutrophils # Seg Neutrophils # Man Lymphocytes # (Manual) Monocytes # (Manual) PT INR APTT ABG pH 7.459 H ABG pO2 ABG HCO3 34.2 H ABG O2 Saturation ABG Base Excess 9.4 H ABG Hemoglobin 7.6 L Oxyhemoglobin 94.8 L Sodium 152 H D 147 H Potassium 2.3 L* D 2.8 L* D Chloride 107.8 H Carbon Dioxide 31 H D 33 H BUN Creatinine 0.6 L 0.6 L Glucose 148 H 177 H POC Glucose Lactic Acid Calcium Ionized Calcium Phosphorus Magnesium Total Bilirubin AST 105 H ALT 71 H Alkaline Phosphatase 155 H Ammonia Total Creatine Kinase CK-MB (CK-2) CK-MB (CK-2) Rel Index Total Protein 5.2 L D Albumin 2.9 L Urine WBC (Auto) Salicylates Acetaminophen Plasma/Serum Alcohol 11/26/19 11/26/19 11/27/19 08:24 08:24 04:20 WBC 12.0 H RBC 3.00 L Hgb 8.0 L 9.3 L Hct 25.9 L 29.7 L MCH 27 L RDW 18.5 H Plt Count Lymph % (Auto) [place] % (Auto) [place] # Seg Neutrophils % Seg Neuts % (Manual) 89.0 H Lymphocytes % (Manual) 4.0 L Seg Neutrophils # Seg Neutrophils # Man 10.7 H Lymphocytes # (Manual) 0.5 L Monocytes # (Manual) PT INR APTT ABG pH ABG pO2 ABG HCO3 ABG O2 Saturation ABG Base Excess ABG Hemoglobin Oxyhemoglobin Sodium 146 H Potassium 3.4 L D Chloride Carbon Dioxide BUN Creatinine 0.5 L Glucose 165 H POC Glucose Lactic Acid Calcium Ionized Calcium Phosphorus Magnesium Total Bilirubin AST 57 H ALT Alkaline Phosphatase 166 H Ammonia Total Creatine Kinase CK-MB (CK-2) CK-MB (CK-2) Rel Index Total Protein Albumin 2.9 L Urine WBC (Auto) Salicylates Acetaminophen Plasma/Serum Alcohol 11/27/19 11/27/19 11/27/19 04:28 04:28 04:42 WBC RBC Hgb Hct MCH RDW Plt Count Lymph % (Auto) [place] % (Auto) [place] # Seg Neutrophils % Seg Neuts % (Manual) Lymphocytes % (Manual) Seg Neutrophils # Seg Neutrophils # Man Lymphocytes # (Manual) Monocytes # (Manual) PT INR APTT ABG pH 7.470 H ABG pO2 74.0 L ABG HCO3 33.8 H ABG O2 Saturation ABG Base Excess 9.1 H ABG Hemoglobin 8.7 L Oxyhemoglobin 94.7 L Sodium 146 H Potassium 2.9 L* Chloride Carbon Dioxide BUN 25 H Creatinine Glucose 213 H POC Glucose Lactic Acid Calcium Ionized Calcium Phosphorus 1.00 L Magnesium Total Bilirubin AST ALT Alkaline Phosphatase Ammonia Total Creatine Kinase CK-MB (CK-2) CK-MB (CK-2) Rel Index Total Protein Albumin Urine WBC (Auto) Salicylates Acetaminophen Plasma/Serum Alcohol 11/27/19 11/27/19 11/27/19 05:37 12:20 15:46 WBC RBC Hgb Hct MCH RDW Plt Count Lymph % (Auto) [place] % (Auto) [place] # Seg Neutrophils % Seg Neuts % (Manual) Lymphocytes % (Manual) Seg Neutrophils # Seg Neutrophils # Man Lymphocytes # (Manual) Monocytes # (Manual) PT INR APTT ABG pH ABG pO2 ABG HCO3 ABG O2 Saturation ABG Base Excess ABG Hemoglobin Oxyhemoglobin Sodium 146 H Potassium 3.5 L D Chloride Carbon Dioxide BUN 24 H Creatinine 0.6 L Glucose 187 H POC Glucose 117 H 220 H Lactic Acid Calcium Ionized Calcium Phosphorus Magnesium Total Bilirubin AST ALT Alkaline Phosphatase Ammonia Total Creatine Kinase CK-MB (CK-2) CK-MB (CK-2) Rel Index Total Protein Albumin Urine WBC (Auto) Salicylates Acetaminophen Plasma/Serum Alcohol 11/27/19 11/28/19 11/28/19 17:28 05:00 05:02 WBC RBC Hgb Hct MCH RDW Plt Count Lymph % (Auto) [place] % (Auto) [place] # Seg Neutrophils % Seg Neuts % (Manual) Lymphocytes % (Manual) Seg Neutrophils # Seg Neutrophils # Man Lymphocytes # (Manual) Monocytes # (Manual) PT INR APTT ABG pH ABG pO2 72.4 L ABG HCO3 33.6 H ABG O2 Saturation 94.1 L ABG Base Excess 7.3 H ABG Hemoglobin Oxyhemoglobin 91.8 L Sodium 146 H Potassium 3.3 L Chloride Carbon Dioxide BUN 25 H Creatinine 0.6 L Glucose 176 H POC Glucose 198 H Lactic Acid Calcium Ionized Calcium Phosphorus Magnesium Total Bilirubin AST ALT Alkaline Phosphatase Ammonia Total Creatine Kinase CK-MB (CK-2) CK-MB (CK-2) Rel Index Total Protein Albumin Urine WBC (Auto) Salicylates Acetaminophen Plasma/Serum Alcohol 11/28/19 11/28/19 11/29/19 05:02 18:55 10:43 WBC 15.2 H 19.0 H RBC 3.06 L 3.01 L Hgb 8.3 L 8.3 L Hct 27.0 L 26.4 L MCH 27 L RDW 19.0 H 19.7 H Plt Count 479 H 611 H Lymph % (Auto) [place] % (Auto) [place] # Seg Neutrophils % Seg Neuts % (Manual) 92.0 H Lymphocytes % (Manual) 2.0 L Seg Neutrophils # Seg Neutrophils # Man 14.0 H Lymphocytes # (Manual) 0.3 L Monocytes # (Manual) PT INR APTT ABG pH ABG pO2 ABG HCO3 ABG O2 Saturation ABG Base Excess ABG Hemoglobin Oxyhemoglobin Sodium Potassium Chloride Carbon Dioxide BUN Creatinine Glucose POC Glucose 138 H Lactic Acid Calcium Ionized Calcium Phosphorus Magnesium Total Bilirubin AST ALT Alkaline Phosphatase Ammonia Total Creatine Kinase CK-MB (CK-2) CK-MB (CK-2) Rel Index Total Protein Albumin Urine WBC (Auto) Salicylates Acetaminophen Plasma/Serum Alcohol 11/29/19 11/29/19 11/29/19 10:43 12:27 19:25 WBC RBC Hgb Hct MCH RDW Plt Count Lymph % (Auto) [place] % (Auto) [place] # Seg Neutrophils % Seg Neuts % (Manual) Lymphocytes % (Manual) Seg Neutrophils # Seg Neutrophils # Man Lymphocytes # (Manual) Monocytes # (Manual) PT INR APTT ABG pH ABG pO2 ABG HCO3 ABG O2 Saturation ABG Base Excess ABG Hemoglobin Oxyhemoglobin Sodium Potassium 2.8 L* Chloride Carbon Dioxide BUN 20 H Creatinine 0.5 L Glucose 121 H POC Glucose 128 H 120 H Lactic Acid Calcium Ionized Calcium Phosphorus Magnesium Total Bilirubin AST ALT Alkaline Phosphatase Ammonia Total Creatine Kinase CK-MB (CK-2) CK-MB (CK-2) Rel Index Total Protein Albumin Urine WBC (Auto) Salicylates Acetaminophen Plasma/Serum Alcohol 11/29/19 11/30/19 11/30/19 23:46 04:10 05:02 WBC RBC Hgb Hct MCH RDW Plt Count Lymph % (Auto) [place] % (Auto) [place] # Seg Neutrophils % Seg Neuts % (Manual) Lymphocytes % (Manual) Seg Neutrophils # Seg Neutrophils # Man Lymphocytes # (Manual) Monocytes # (Manual) PT INR APTT ABG pH ABG pO2 76.3 L ABG HCO3 32.5 H ABG O2 Saturation ABG Base Excess 6.9 H ABG Hemoglobin 8.0 L Oxyhemoglobin 92.6 L Sodium Potassium Chloride Carbon Dioxide BUN Creatinine Glucose POC Glucose 116 H 128 H Lactic Acid Calcium Ionized Calcium Phosphorus Magnesium Total Bilirubin AST ALT Alkaline Phosphatase Ammonia Total Creatine Kinase CK-MB (CK-2) CK-MB (CK-2) Rel Index Total Protein Albumin Urine WBC (Auto) Salicylates Acetaminophen Plasma/Serum Alcohol 11/30/19 11/30/19 11/30/19 05:25 05:25 12:59 WBC 18.4 H RBC 3.10 L Hgb 8.5 L Hct 27.5 L MCH 27 L RDW 20.9 H Plt Count 691 H Lymph % (Auto) 7.1 L [place] % (Auto) 7.7 H [place] # 1.4 H Seg Neutrophils % 83.4 H Seg Neuts % (Manual) Lymphocytes % (Manual) Seg Neutrophils # 15.4 H Seg Neutrophils # Man Lymphocytes # (Manual) Monocytes # (Manual) PT INR APTT ABG pH ABG pO2 ABG HCO3 ABG O2 Saturation ABG Base Excess ABG Hemoglobin Oxyhemoglobin Sodium 146 H Potassium Chloride 107.2 H Carbon Dioxide BUN Creatinine 0.5 L Glucose 132 H POC Glucose 124 H Lactic Acid Calcium Ionized Calcium Phosphorus Magnesium Total Bilirubin AST 246 H ALT 274 H Alkaline Phosphatase 203 H Ammonia Total Creatine Kinase CK-MB (CK-2) CK-MB (CK-2) Rel Index Total Protein 5.4 L Albumin 2.9 L Urine WBC (Auto) Salicylates Acetaminophen Plasma/Serum Alcohol 11/30/19 12/01/19 12/01/19 17:53 00:05 05:10 WBC RBC Hgb Hct MCH RDW Plt Count Lymph % (Auto) [place] % (Auto) [place] # Seg Neutrophils % Seg Neuts % (Manual) Lymphocytes % (Manual) Seg Neutrophils # Seg Neutrophils # Man Lymphocytes # (Manual) Monocytes # (Manual) PT INR APTT ABG pH ABG pO2 ABG HCO3 ABG O2 Saturation ABG Base Excess ABG Hemoglobin Oxyhemoglobin Sodium Potassium Chloride Carbon Dioxide BUN Creatinine Glucose POC Glucose 113 H 143 H 145 H Lactic Acid Calcium Ionized Calcium Phosphorus Magnesium Total Bilirubin AST ALT Alkaline Phosphatase Ammonia Total Creatine Kinase CK-MB (CK-2) CK-MB (CK-2) Rel Index Total Protein Albumin Urine WBC (Auto) Salicylates Acetaminophen Plasma/Serum Alcohol 12/01/19 12/01/19 12/01/19 05:33 08:23 08:23 WBC 22.7 H RBC 2.88 L Hgb 7.9 L Hct 25.2 L MCH 27 L RDW 21.0 H Plt Count 732 H Lymph % (Auto) [place] % (Auto) [place] # Seg Neutrophils % Seg Neuts % (Manual) 91.0 H Lymphocytes % (Manual) 3.0 L Seg Neutrophils # Seg Neutrophils # Man 20.7 H Lymphocytes # (Manual) 0.7 L Monocytes # (Manual) 1.1 H PT INR APTT ABG pH ABG pO2 68.6 L ABG HCO3 34.1 H ABG O2 Saturation ABG Base Excess 9.0 H ABG Hemoglobin 6.5 L Oxyhemoglobin 94.7 L Sodium Potassium Chloride Carbon Dioxide BUN Creatinine 0.5 L Glucose 125 H POC Glucose Lactic Acid Calcium Ionized Calcium Phosphorus Magnesium Total Bilirubin AST ALT Alkaline Phosphatase Ammonia Total Creatine Kinase CK-MB (CK-2) CK-MB (CK-2) Rel Index Total Protein Albumin Urine WBC (Auto) Salicylates Acetaminophen Plasma/Serum Alcohol 12/01/19 12/01/19 12/01/19 13:21 17:54 20:59 WBC RBC Hgb Hct MCH RDW Plt Count Lymph % (Auto) [place] % (Auto) [place] # Seg Neutrophils % Seg Neuts % (Manual) Lymphocytes % (Manual) Seg Neutrophils # Seg Neutrophils # Man Lymphocytes # (Manual) Monocytes # (Manual) PT INR APTT ABG pH ABG pO2 78.3 L ABG HCO3 33.8 H ABG O2 Saturation 94.9 L ABG Base Excess 7.9 H ABG Hemoglobin 11.5 L Oxyhemoglobin 92.3 L Sodium Potassium Chloride Carbon Dioxide BUN Creatinine Glucose POC Glucose 111 H 115 H Lactic Acid Calcium Ionized Calcium Phosphorus Magnesium Total Bilirubin AST ALT Alkaline Phosphatase Ammonia Total Creatine Kinase CK-MB (CK-2) CK-MB (CK-2) Rel Index Total Protein Albumin Urine WBC (Auto) Salicylates Acetaminophen Plasma/Serum Alcohol 12/02/19 12/03/19 12/04/19 12:55 20:00 04:26 WBC 15.2 H RBC 2.69 L Hgb 7.4 L Hct 23.6 L MCH 27 L RDW 19.9 H Plt Count 838 H Lymph % (Auto) [place] % (Auto) [place] # Seg Neutrophils % Seg Neuts % (Manual) Lymphocytes % (Manual) Seg Neutrophils # Seg Neutrophils # Man Lymphocytes # (Manual) Monocytes # (Manual) PT INR APTT ABG pH ABG pO2 68.3 L ABG HCO3 33.5 H ABG O2 Saturation 93.5 L ABG Base Excess 8.4 H ABG Hemoglobin 7.3 L Oxyhemoglobin 90.9 L Sodium Potassium Chloride Carbon Dioxide BUN Creatinine Glucose POC Glucose 107 H Lactic Acid Calcium Ionized Calcium Phosphorus Magnesium Total Bilirubin AST ALT Alkaline Phosphatase Ammonia Total Creatine Kinase CK-MB (CK-2) CK-MB (CK-2) Rel Index Total Protein Albumin Urine WBC (Auto) Salicylates Acetaminophen Plasma/Serum Alcohol 12/04/19 12/04/19 12/04/19 04:26 07:45 12:02 WBC 15.9 H RBC 2.88 L Hgb 7.9 L Hct 25.1 L MCH RDW 20.4 H Plt Count 839 H Lymph % (Auto) 11.3 L [place] % (Auto) 15.2 H [place] # 2.4 H Seg Neutrophils % 72.4 H Seg Neuts % (Manual) Lymphocytes % (Manual) Seg Neutrophils # 11.5 H Seg Neutrophils # Man Lymphocytes # (Manual) Monocytes # (Manual) PT INR APTT ABG pH ABG pO2 ABG HCO3 ABG O2 Saturation ABG Base Excess ABG Hemoglobin Oxyhemoglobin Sodium Potassium Chloride 96.5 L Carbon Dioxide BUN 21 H Creatinine 0.6 L Glucose 107 H POC Glucose 138 H Lactic Acid Calcium Ionized Calcium Phosphorus Magnesium Total Bilirubin AST ALT Alkaline Phosphatase Ammonia Total Creatine Kinase CK-MB (CK-2) CK-MB (CK-2) Rel Index Total Protein Albumin Urine WBC (Auto) Salicylates Acetaminophen Plasma/Serum Alcohol 12/04/19 12/05/19 12/05/19 18:16 11:55 18:36 WBC RBC Hgb Hct MCH RDW Plt Count Lymph % (Auto) [place] % (Auto) [place] # Seg Neutrophils % Seg Neuts % (Manual) Lymphocytes % (Manual) Seg Neutrophils # Seg Neutrophils # Man Lymphocytes # (Manual) Monocytes # (Manual) PT INR APTT ABG pH ABG pO2 ABG HCO3 ABG O2 Saturation ABG Base Excess ABG Hemoglobin Oxyhemoglobin Sodium Potassium Chloride Carbon Dioxide BUN Creatinine Glucose POC Glucose 135 H 125 H 135 H Lactic Acid Calcium Ionized Calcium Phosphorus Magnesium Total Bilirubin AST ALT Alkaline Phosphatase Ammonia Total Creatine Kinase CK-MB (CK-2) CK-MB (CK-2) Rel Index Total Protein Albumin Urine WBC (Auto) Salicylates Acetaminophen Plasma/Serum Alcohol 12/05/19 12/06/19 12/06/19 23:30 04:14 05:43 WBC RBC Hgb Hct MCH RDW Plt Count Lymph % (Auto) [place] % (Auto) [place] # Seg Neutrophils % Seg Neuts % (Manual) Lymphocytes % (Manual) Seg Neutrophils # Seg Neutrophils # Man Lymphocytes # (Manual) Monocytes # (Manual) PT INR APTT ABG pH ABG pO2 ABG HCO3 ABG O2 Saturation ABG Base Excess ABG Hemoglobin Oxyhemoglobin Sodium Potassium 5.6 H Chloride 95.0 L Carbon Dioxide BUN 48 H Creatinine 1.3 H D Glucose POC Glucose 126 H 121 H Lactic Acid Calcium Ionized Calcium Phosphorus Magnesium Total Bilirubin AST 89 H ALT 98 H Alkaline Phosphatase 476 H Ammonia Total Creatine Kinase CK-MB (CK-2) CK-MB (CK-2) Rel Index Total Protein Albumin 2.8 L Urine WBC (Auto) Salicylates Acetaminophen Plasma/Serum Alcohol 12/06/19 12/06/19 12/07/19 10:39 14:34 00:19 WBC 17.3 H RBC 2.60 L Hgb 7.1 L Hct 22.7 L MCH 27 L RDW 20.1 H Plt Count 832 H Lymph % (Auto) [place] % (Auto) [place] # Seg Neutrophils % Seg Neuts % (Manual) Lymphocytes % (Manual) Seg Neutrophils # Seg Neutrophils # Man Lymphocytes # (Manual) Monocytes # (Manual) PT INR APTT ABG pH ABG pO2 ABG HCO3 ABG O2 Saturation ABG Base Excess ABG Hemoglobin Oxyhemoglobin Sodium Potassium Chloride Carbon Dioxide BUN Creatinine Glucose POC Glucose 128 H 136 H Lactic Acid Calcium Ionized Calcium Phosphorus Magnesium Total Bilirubin AST ALT Alkaline Phosphatase Ammonia Total Creatine Kinase CK-MB (CK-2) CK-MB (CK-2) Rel Index Total Protein Albumin Urine WBC (Auto) Salicylates Acetaminophen Plasma/Serum Alcohol 12/07/19 12/07/19 12/07/19 03:44 03:44 05:53 WBC 16.2 H RBC 2.56 L Hgb 7.1 L Hct 22.3 L MCH RDW 19.4 H Plt Count 782 H Lymph % (Auto) [place] % (Auto) [place] # Seg Neutrophils % Seg Neuts % (Manual) Lymphocytes % (Manual) Seg Neutrophils # Seg Neutrophils # Man Lymphocytes # (Manual) Monocytes # (Manual) PT INR APTT ABG pH ABG pO2 ABG HCO3 ABG O2 Saturation ABG Base Excess ABG Hemoglobin Oxyhemoglobin Sodium Potassium Chloride 95.6 L Carbon Dioxide BUN 56 H Creatinine 1.4 H Glucose 120 H POC Glucose 128 H Lactic Acid Calcium 10.3 H Ionized Calcium Phosphorus Magnesium Total Bilirubin AST ALT Alkaline Phosphatase Ammonia Total Creatine Kinase CK-MB (CK-2) CK-MB (CK-2) Rel Index Total Protein Albumin Urine WBC (Auto) Salicylates Acetaminophen Plasma/Serum Alcohol 12/07/19 12/07/19 12/08/19 12:54 23:47 00:20 WBC RBC Hgb Hct MCH RDW Plt Count Lymph % (Auto) [place] % (Auto) [place] # Seg Neutrophils % Seg Neuts % (Manual) Lymphocytes % (Manual) Seg Neutrophils # Seg Neutrophils # Man Lymphocytes # (Manual) Monocytes # (Manual) PT INR APTT ABG pH ABG pO2 ABG HCO3 ABG O2 Saturation ABG Base Excess ABG Hemoglobin Oxyhemoglobin Sodium Potassium Chloride Carbon Dioxide BUN Creatinine Glucose POC Glucose 128 H 130 H 124 H Lactic Acid Calcium Ionized Calcium Phosphorus Magnesium Total Bilirubin AST ALT Alkaline Phosphatase Ammonia Total Creatine Kinase CK-MB (CK-2) CK-MB (CK-2) Rel Index Total Protein Albumin Urine WBC (Auto) Salicylates Acetaminophen Plasma/Serum Alcohol 12/08/19 12/08/19 12/08/19 06:38 12:04 18:26 WBC RBC Hgb Hct MCH RDW Plt Count Lymph % (Auto) [place] % (Auto) [place] # Seg Neutrophils % Seg Neuts % (Manual) Lymphocytes % (Manual) Seg Neutrophils # Seg Neutrophils # Man Lymphocytes # (Manual) Monocytes # (Manual) PT INR APTT ABG pH ABG pO2 ABG HCO3 ABG O2 Saturation ABG Base Excess ABG Hemoglobin Oxyhemoglobin Sodium Potassium Chloride Carbon Dioxide BUN Creatinine Glucose POC Glucose 137 H 129 H 150 H Lactic Acid Calcium Ionized Calcium Phosphorus Magnesium Total Bilirubin AST ALT Alkaline Phosphatase Ammonia Total Creatine Kinase CK-MB (CK-2) CK-MB (CK-2) Rel Index Total Protein Albumin Urine WBC (Auto) Salicylates Acetaminophen Plasma/Serum Alcohol 12/09/19 12/09/19 12/09/19 00:56 05:34 06:13 WBC RBC Hgb Hct MCH RDW Plt Count Lymph % (Auto) [place] % (Auto) [place] # Seg Neutrophils % Seg Neuts % (Manual) Lymphocytes % (Manual) Seg Neutrophils # Seg Neutrophils # Man Lymphocytes # (Manual) Monocytes # (Manual) PT INR APTT ABG pH ABG pO2 ABG HCO3 ABG O2 Saturation ABG Base Excess ABG Hemoglobin Oxyhemoglobin Sodium 146 H Potassium Chloride Carbon Dioxide BUN 66 H Creatinine 1.9 H Glucose 116 H POC Glucose 130 H 130 H Lactic Acid Calcium Ionized Calcium Phosphorus Magnesium Total Bilirubin AST ALT Alkaline Phosphatase Ammonia Total Creatine Kinase CK-MB (CK-2) CK-MB (CK-2) Rel Index Total Protein Albumin Urine WBC (Auto) Salicylates Acetaminophen Plasma/Serum Alcohol 12/09/19 11:52 WBC RBC Hgb Hct MCH RDW Plt Count Lymph % (Auto) [place] % (Auto) [place] # Seg Neutrophils % Seg Neuts % (Manual) Lymphocytes % (Manual) Seg Neutrophils # Seg Neutrophils # Man Lymphocytes # (Manual) Monocytes # (Manual) PT INR APTT ABG pH ABG pO2 ABG HCO3 ABG O2 Saturation ABG Base Excess ABG Hemoglobin Oxyhemoglobin Sodium Potassium Chloride Carbon Dioxide BUN Creatinine Glucose POC Glucose 135 H Lactic Acid Calcium Ionized Calcium Phosphorus Magnesium Total Bilirubin AST ALT Alkaline Phosphatase Ammonia Total Creatine Kinase CK-MB (CK-2) CK-MB (CK-2) Rel Index Total Protein Albumin Urine WBC (Auto) Salicylates Acetaminophen Plasma/Serum Alcohol Allied health notes reviewed: nursing
--- NOTE | 2019-12-09 15:18 | Progress Note ---
Assessment and Plan Assessment and plan: 54-year-old female with a past medical history of Hypertension, Depression, Tobacco use Disorder, Alcohol use Disorder as confirmed by Daughter and pt's mother presents to the hospital status post cardiac arrest. Patient is from home and family called EMS at 22: 27 for the pt who had told family members that she was not feeling good and c/o her chronic hip pain. She urinated and then was speaking, then she " froze and was rigid " per daughter and she became unresponsive and stopped breathing. Immediately, family began CPR. EMS found pt in PEA. Upon their arrival patient in SinuS Tachycardia.. They were unable to intubate patient with a ET tube because she was clenching down therefore Joe airway placed. Patient received Narcan and Epinephrine. Patient's rhythm changed to PEA to sinus bradycardia, to PEA, then to sinus tach after receiving Narcan and Epinephrine. Per the ED physician who evaluated pt, Patient presented with a pulse, intermittent respirations, and bagging support via Joe airway with O2 sat of 100%. Accu-Chek of [address] Rodriguez spoke to patient's family (daughter and mother). MOther is Anh Jesus- [phone] and she would like to be called about pt's progress or notified about the pt. No seizure activity was noted. They deny that patient brown d any preceding infection symptoms, cough, fever, complaints of chest pain, shortness of breath, or any bleeding diathesis, melena, hematochezia, hematuria, hematemesis, or abdominal pain. Patient is a known alcoholic and continues to drink per daughter. No history could be obtained from the pt due to her mechanical ventilation. No previous hx of DVT/PE per mother and daughter. 12/04: Patient failed CPAP trial became apneic according to documentation. 12/05: No clinical change, continue current management, monitor H/H 12/06: Awaiting labs. No new changes at this time opens eyes. Surgeon discussed trach and PEG with family but they want to get more information about hospice which they have been directed to the field case manager. 12/07: Acute respiratory failure with hypoxia Seizure disorder Presumed anoxic brain injury Alcohol abuse Acute metabolic encephalopathy/toxic encephalopathy BHAVANA secondary to vasomotor nephropathy Hypertension Status post cardiac arrest Distended abdomen, NGT to suction Transaminitis Acute cystitis Metabolic acidosis/alcoholic acidosis/lactic acidosis Sepsis Ischemic hepatitis Plan Continue Keppra at this time. RE-eval by neurology, no clinical change PEG and Trach being planned for If aggressive treatment is still sought after despite discussion with neurologist will proceed with PEG and trach. Give IV fluids due to worsening renal function Will discuss with pulmonary this morning considering patient's apneic status following CPAP trial. Patient was on restraints as she gets agitated when off sedation. Precedex was added yesterday. And Librium was increased to 50 mg every 8 hours. Patient had intact corneal and cough reflex and withdrew to pain lower extremity initially although out of hospital cardiac arrest was noted. It is less likely that this patient will have any meaningful recovery following extubation. Continue to monitor LFTs She is on antibiotics and this completed a few days 11/29/2019 ago no growth was noted on cultures no fever. We will continue off antibiotics at this time. Restraints Poor prognosis The high probability of a clinically significant, sudden or life threatening deterioration of the [pulmonary, neurology] system(s) required my full and direct attention, intervention and personal management. The aggregate critical care time was [35] minutes. This time is in addition to time spent performing reported procedures but includes the following: [v] Data Review and interpretation (v) Patient assessment and monitoring of vital signs [v] Documentation [v] Medication orders and management History Interval history: Patient seen and examined, remains unresponsive and on full respiratory support, No clinical change. No change Hospitalist Physical - Physical exam Narrative exam: General appearance: Present: no acute distress, other (on vent with sedation, elderly female), eyes opens but not following any commands but unresponsive - EENT ENT: no oropharyngeal erythema, no poor dentition, no thrush - Neck Neck: Present: supple - Respiratory Respiratory effort: normal Respiratory: bilateral: diminished (On ventilator.) - Cardiovascular Rhythm: regular Heart Sounds: Absent: systolic murmur, diastolic murmur - Extremities Extremities: no ischemia, pulses intact, pulses symmetrical, normal temperature, normal color Extremity abnormal: edema Peripheral Pulses: within normal limits - Abdominal General gastrointestinal: deferred, non-tender, distended, hypoactive bowel sounds - Integumentary Integumentary: Present: clear, warm, dry Neuro: Unresponsive, tongue protruding. - Constitutional Vitals: Temp Pulse Resp BP Pulse Ox 98.0 F 93 H 18 169/103 100 12/09/19 12:00 12/09/19 15:00 12/09/19 15:00 12/09/19 15:00 12/09/19 15:00 General appearance: Present: no acute distress, other (on vent with sedation, elderly female) Results - Labs CBC & Chem 7: 12/07/19 03:44 12/09/19 06:13 Labs: Laboratory Last Values WBC 16.2 K/mm3 (4.5-11.0) H 12/07/19 03:44 RBC 2.56 M/mm3 (3.65-5.03) L 12/07/19 03:44 Hgb 7.1 gm/dl (10.1-14.3) L 12/07/19 03:44 Hct 22.3 % (30.3-42.9) L 12/07/19 03:44 MCV 87 fl (79-97) 12/07/19 03:44 MCH 28 pg (28-32) 12/07/19 03:44 MCHC 32 % (30-34) 12/07/19 03:44 RDW 19.4 % (13.2-15.2) H 12/07/19 03:44 Plt Count 782 K/mm3 (140-440) H 12/07/19 03:44 Lymph % (Auto) 11.3 % (13.4-35.0) L 12/04/19 07:45 Wright % (Auto) 15.2 % (0.0-7.3) H 12/04/19 07:45 Eos % (Auto) 0.5 % (0.0-4.3) 12/04/19 07:45 Baso % (Auto) 0.6 % (0.0-1.8) 12/04/19 07:45 Lymph # 1.8 K/mm3 (1.2-5.4) 12/04/19 07:45 Wright # 2.4 K/mm3 (0.0-0.8) H 12/04/19 07:45 Eos # 0.1 K/mm3 (0.0-0.4) 12/04/19 07:45 Baso # 0.1 K/mm3 (0.0-0.1) 12/04/19 07:45 Add Manual Diff Complete 12/04/19 07:45 Total Counted 100 12/01/19 08:23 Seg Neutrophils % 72.4 % (40.0-70.0) H 12/04/19 07:45 Seg Neuts % (Manual) 91.0 % (40.0-70.0) H 12/01/19 08:23 Band Neutrophils % 0 % 12/01/19 08:23 Lymphocytes % (Manual) 3.0 % (13.4-35.0) L 12/01/19 08:23 Reactive Lymphs % (Man) 1.0 % 12/01/19 08:23 Monocytes % (Manual) 5.0 % (0.0-7.3) 12/01/19 08:23 Eosinophils % (Manual) 0 % (0.0-4.3) 12/01/19 08:23 Basophils % (Manual) 0 % (0.0-1.8) 12/01/19 08:23 Metamyelocytes % 0 % 12/01/19 08:23 Myelocytes % 0 % 12/01/19 08:23 Promyelocytes % 0 % 12/01/19 08:23 Blast Cells % 0 % 12/01/19 08:23 Nucleated RBC % Not Reportable 12/01/19 08:23 Seg Neutrophils # 11.5 K/mm3 (1.8-7.7) H 12/04/19 07:45 Seg Neutrophils # Man 20.7 K/mm3 (1.8-7.7) H 12/01/19 08:23 Band Neutrophils # 0.0 K/mm3 12/01/19 08:23 Lymphocytes # (Manual) 0.7 K/mm3 (1.2-5.4) L 12/01/19 08:23 Abs React Lymphs (Man) 0.2 K/mm3 12/01/19 08:23 Monocytes # (Manual) 1.1 K/mm3 (0.0-0.8) H 12/01/19 08:23 Eosinophils # (Manual) 0.0 K/mm3 (0.0-0.4) 12/01/19 08:23 Basophils # (Manual) 0.0 K/mm3 (0.0-0.1) 12/01/19 08:23 Metamyelocytes # 0.0 K/mm3 12/01/19 08:23 Myelocytes # 0.0 K/mm3 12/01/19 08:23 Promyelocytes # 0.0 K/mm3 12/01/19 08:23 Blast Cells # 0.0 K/mm3 12/01/19 08:23 WBC Morphology Not Reportable 12/01/19 08:23 Hypersegmented Neuts Not Reportable 12/01/19 08:23 Hyposegmented Neuts Not Reportable 12/01/19 08:23 Hypogranular Neuts Not Reportable 12/01/19 08:23 Smudge Cells Not Reportable 12/01/19 08:23 Toxic Granulation Not Reportable 12/01/19 08:23 Toxic Vacuolation Not Reportable 12/01/19 08:23 Dohle Bodies Not Reportable 12/01/19 08:23 Pelger-Huet Anomaly Not Reportable 12/01/19 08:23 Dominique Rods Not Reportable 12/01/19 08:23 Platelet Estimate Consistent w auto 12/01/19 08:23 Clumped Platelets Not Reportable 12/01/19 08:23 Plt Clumps, EDTA Not Reportable 12/01/19 08:23 Large Platelets Not Reportable 12/01/19 08:23 Giant Platelets Few 12/01/19 08:23 Platelet Satelliting Not Reportable 12/01/19 08:23 Plt Morphology Comment Not Reportable 12/01/19 08:23 RBC Morphology Not Reportable 12/01/19 08:23 Dimorphic RBCs Not Reportable 12/01/19 08:23 Polychromasia Few 12/01/19 08:23 Hypochromasia Few 12/01/19 08:23 Poikilocytosis Not Reportable 12/01/19 08:23 Anisocytosis Not Reportable 12/01/19 08:23 Microcytosis Not Reportable 12/01/19 08:23 Macrocytosis Not Reportable 12/01/19 08:23 Spherocytes Not Reportable 12/01/19 08:23 Pappenheimer Bodies Not Reportable 12/01/19 08:23 Sickle Cells Not Reportable 12/01/19 08:23 Target Cells 1+ 12/01/19 08:23 Tear Drop Cells Not Reportable 12/01/19 08:23 Ovalocytes Not Reportable 12/01/19 08:23 Helmet Cells Not Reportable 12/01/19 08:23 Frias-[place] Bodies Not Reportable 12/01/19 08:23 [place] Rings Not Reportable 12/01/19 08:23 Jamshid Cells Not Reportable 12/01/19 08:23 Bite Cells Not Reportable 12/01/19 08:23 Crenated Cell Not Reportable 12/01/19 08:23 Elliptocytes Not Reportable 12/01/19 08:23 Acanthocytes (Spur) Not Reportable 12/01/19 08:23 Rouleaux Not Reportable 12/01/19 08:23 Hemoglobin C Crystals Not Reportable 12/01/19 08:23 Schistocytes Not Reportable 12/01/19 08:23 Malaria parasites Not Reportable 12/01/19 08:23 Gregg Bodies Not Reportable 12/01/19 08:23 Hem Pathologist Commnt No 12/01/19 08:23 PT 17.0 Sec. (12.2-14.9) H 11/23/19 03:47 INR 1.36 (0.87-1.13) H 11/23/19 03:47 APTT 128.2 Sec. (24.2-36.6) H* 11/23/19 03:47 Heparin Anti-Xa Level 0.31 U.I./ml (0.3-0.7) 11/23/19 09:03 ABG pH 7.437 pH Units (7.350-7.450) 12/03/19 20:00 ABG pCO2 50.7 mm Hg 12/03/19 20:00 ABG pO2 68.3 mm Hg (80.0-90.0) L 12/03/19 20:00 ABG HCO3 33.5 mmol/L (20.0-26.0) H 12/03/19 20:00 ABG O2 Saturation 93.5 % (95.0-99.0) L 12/03/19 20:00 ABG O2 Content 9.5 (0.0-44) 12/03/19 20:00 ABG Base Excess 8.4 mmol/L (-2.0-3.0) H 12/03/19 20:00 ABG Hemoglobin 7.3 gm/dl (12.0-16.0) L 12/03/19 20:00 ABG Carboxyhemoglobin 2.3 % (0.0-5.0) 12/03/19 20:00 ABG Methemoglobin 0.4 % (0.0-1.5) 12/03/19 20:00 Oxyhemoglobin 90.9 % (95.0-99.0) L 12/03/19 20:00 FiO2 30 % 12/03/19 20:00 Sodium 146 mmol/L (137-145) H 12/09/19 06:13 Potassium 4.0 mmol/L (3.6-5.0) 12/09/19 06:13 Chloride 101.1 mmol/L (98-107) 12/09/19 06:13 Carbon Dioxide 28 mmol/L (22-30) 12/09/19 06:13 Anion Gap 21 mmol/L 12/09/19 06:13 BUN 66 mg/dL (7-17) H 12/09/19 06:13 Creatinine 1.9 mg/dL (0.7-1.2) H 12/09/19 06:13 Estimated GFR 33 ml/min 12/09/19 06:13 BUN/Creatinine Ratio 35 % 12/09/19 06:13 Glucose 116 mg/dL (65-100) H 12/09/19 06:13 POC Glucose 135 (70-105) H 12/09/19 11:52 Lactic Acid 1.80 mmol/L (0.7-2.0) 11/25/19 05:05 Calcium 9.9 mg/dL (8.4-10.2) 12/09/19 06:13 Ionized Calcium 4.5 mg/dL (4.8-5.6) L 11/23/19 06:32 Phosphorus 4.20 mg/dL (2.5-4.5) D 11/28/19 08:59 Magnesium 2.30 mg/dL (1.7-2.3) 11/29/19 13:41 Total Bilirubin 0.60 mg/dL (0.1-1.2) 12/06/19 04:14 AST 89 units/L (5-40) H 12/06/19 04:14 ALT 98 units/L (7-56) H 12/06/19 04:14 Alkaline Phosphatase 476 units/L (35-129) H 12/06/19 04:14 Ammonia 42.0 umol/L (25-60) 11/29/19 13:41 Total Creatine Kinase 139 units/L (30-135) H 11/22/19 23:27 CK-MB (CK-2) 8.3 ng/mL (0.0-4.0) H 11/22/19 23:27 CK-MB (CK-2) Rel Index 5.9 (0-4) H 11/22/19 23:27 Troponin T < 0.010 ng/mL (0.00-0.029) 11/22/19 23:27 Total Protein 7.3 g/dL (6.3-8.2) 12/06/19 04:14 Albumin 2.8 g/dL (3.9-5) L 12/06/19 04:14 Albumin/Globulin Ratio 0.6 % 12/06/19 04:14 Lipase 18 units/L (13-60) 11/23/19 00:34 Procalcitonin 1.09 ng/mL (<0.15) 11/23/19 04:53 Urine Color Yellow (Yellow) 11/22/19 23:17 Urine Turbidity Cloudy (Clear) 11/22/19 23:17 Urine pH 6.0 (5.0-7.0) 11/22/19 23:17 Ur Specific Coldiron 1.010 (1.003-1.030) 11/22/19 23:17 Urine Protein >500 mg/dL (Negative) 11/22/19 23:17 Urine Glucose (UA) >=500 mg/dL (Negative) 11/22/19 23:17 Urine Ketones 20 mg/dL (Negative) 11/22/19 23:17 Urine Blood Mod (Negative) 11/22/19 23:17 Urine Nitrite Neg (Negative) 11/22/19 23:17 Urine Bilirubin Neg (Negative) 11/22/19 23:17 Urine Urobilinogen 4.0 mg/dL (<2.0) 11/22/19 23:17 Ur Leukocyte Esterase Neg (Negative) 11/22/19 23:17 Urine WBC (Auto) 40.0 /HPF (0.0-6.0) H 11/22/19 23:17 Urine RBC (Auto) 10.0 /HPF (0.0-6.0) 11/22/19 23:17 U Epithel Cells (Auto) 1.0 /HPF (0-13.0) 11/22/19 23:17 Urine Bacteria (Auto) 2+ /HPF (Negative) 11/22/19 23:17 Urine Mucus Few /HPF 11/22/19 23:17 Salicylates < 0.3 mg/dL (2.8-20.0) L 11/22/19 23:27 Urine Opiates Screen Presumptive negative 11/22/19 23:17 Urine Methadone Screen Presumptive negative 11/22/19 23:17 Acetaminophen < 5.0 ug/mL (10.0-30.0) L 11/22/19 23:27 Ur Barbiturates Screen Presumptive negative 11/22/19 23:17 Ur Phencyclidine Scrn Presumptive negative 11/22/19 23:17 Ur Amphetamines Screen Presumptive negative 11/22/19 23:17 U Benzodiazepines Scrn Presumptive negative 11/22/19 23:17 Urine Cocaine Screen Presumptive negative 11/22/19 23:17 U Marijuana (THC) Screen Presumptive negative 11/22/19 23:17 Drugs of Abuse Note Disclamer 11/22/19 23:17 Plasma/Serum Alcohol 0.08 % (0-0.07) H 11/22/19 23:27 Hepatitis A IgM Ab Non-reactive (NonReactive) 11/23/19 01:19 Hep Bs Antigen Non-reactive (Negative) 11/23/19 01:19 Hep B Core IgM Ab Non-reactive (NonReactive) 11/23/19 01:19 Hepatitis C Antibody Non-reactive (NonReactive) 11/23/19 01:19 - Diagnostic Impressions Diagnostic Impressions: Echocardiogram 11/23/19 03:58 Transthoracic Echocardiogram Indication: Cardiac arrest BP: 131/89 HR: 115 Conclusions *The study quality is technically difficult. *Global left ventricular wall motion and contractility are within normal limits. *The estimated ejection fraction is 55-60%. *Abnormal left ventricular diastolic filling is observed, consistent with impaired relaxation. *There is no pericardial effusion. Findings Procedure Info: The study quality is technically difficult. The study was technically limited due to the patient's inability to lay in the left lateral decubitus position. Left Ventricle: The left ventricular chamber size is normal. There is no left ventricular hypertrophy. Global left ventricular wall motion and contractility are within normal limits. Global left ventricular systolic function is normal. The estimated ejection fraction is 55-60%. Abnormal left ventricular diastolic filling is observed, consistent with impaired relaxation. Left Atrium: The left atrial chamber size is normal. Aortic Valve: The aortic valve leaflets are mildly thickened. Mitral Valve: The mitral valve leaflets are mildly thickened. There is no evidence of mitral regurgitation. Tricuspid Valve: The tricuspid valve leaflets are normal. There is trace tricuspid regurgitation. The right ventricular systolic pressure is calculated at 33 mmHg. Pulmonic Valve: The pulmonic valve appears normal. Pericardium: The pericardium appears normal. There is no pericardial effusion. Aorta: The aorta appears normal. Venous: The inferior vena cava appears normal in size. Measurements Chambers 2D Name Value Normal Range IVSd (2D) 0.94 cm (0.6 - 1.1) LVPWd (2D) 0.81 cm (0.6 - 1.1) LVIDd (2D) 3.6 cm (3.7 - 5.6) LVIDs (2D) 2.27 cm (2 - 3.8) LV FS (2D) 36.93 % - EF Teichholz (2D) 67.76 % - Ao root diameter (2D) 3.03 cm (2 - 3.7) Volumes/Mass Name Value Normal Range LA ESV SP 4CH (A/L) 16.89 ml - LA ESV SP 4CH (MOD) 15.52 ml - Diastolic/Systolic Function Name Value Normal Range MV E-wave Vmax 0.55 m/sec - MV deceleration time 200.89 msec - MV A-wave Vmax 0.68 m/sec - MV E:A ratio 0.82 ratio - Aortic Valve Name Value Normal Range AV Vmax 1.1 m/sec - AV VTI 15.9 cm - AV peak gradient 4.86 mmHg - AV mean gradient 2.59 mmHg - LVOT diameter 2 cm - LVOT Vmax 1.03 m/sec - LVOT VTI 15.87 cm - LVOT peak gradient 4.24 mmHg - LVOT mean gradient 2.41 mmHg - SV LVOT 49.77 ml - JOSÉ MIGUEL (continuity Vmax) 2.93 cm2 - JOSÉ MIGUEL (continuity VTI) 3.13 cm2 - Tricuspid Valve Name Value Normal Range TR Vmax 2.74 m/sec - TR peak gradient 303 mmHg - RAP 3 mmHg - RVSP 33 mmHg - IVC diameter 1.77 cm (1.2 - 2.3) Pulmonic Valve/Qp:Qs Name Value Normal Range PV Vmax 0.77 m/sec - PV peak gradient 2.4 mmHg - PV acceleration time 114.18 msec - Dela Cruz/IV: Voiding Method External Female Catheter IV Catheter Type [Right Wrist] Peripheral IV IV Catheter Type [Left Wrist] Peripheral IV IV Catheter Type [Left Peripheral IV Antecubital] IV Catheter Type [Right INT / Saline Lock Forearm] IV Catheter Type [Left Hand] Peripheral IV Active Medications - Current Medications Current Medications: Generic Name Dose Route Start Last Admin Trade Name Freq PRN Reason Stop Dose Admin Acetaminophen 650 mg 12/06/19 10:25 12/06/19 11:22 Tylenol FEEDTUBE 650 mg Q6H PRN Administration TEMP >/=100.3 Lipase/Protease/Amylase 1 each 11/23/19 11:[address] 10,500 Unit FEEDTUBE PRN PRN For Clogged Feeding Tube Chlordiazepoxide HCl 50 mg 12/04/19 14:00 12/09/19 06:07 Librium PO Not Given Q8H LUCHO Fentanyl 25 mcg 12/04/19 17:00 12/07/19 16:07 Duragesic TD 25 mcg Q3D LUCHO Administration Fentanyl 50 mcg 12/05/19 02:10 Sublimaze IV Q10MIN PRN ANALGESIA Heparin Sodium (Porcine) 5,000 unit 11/23/19 22:00 12/09/19 10:40 Heparin SUB-Q 5,000 unit Q12HR LUCHO Administration Hydralazine HCl 10 mg 11/24/19 00:45 12/08/19 05:51 Apresoline IV 10 mg Q6H PRN Administration SBP > 160 Hydrophilic Ointment 1 applic 11/22/19 23:23 Vaseline Lip Therapy TP Q2HR PRN Dry Lips Hydroxyzine Pamoate 25 mg 12/06/19 10:00 12/09/19 10:40 Vistaril PO 25 mg BID LUCHO Administration Fentanyl Citrate 2,000 mcg in 100 mls @ 2.74 mls/hr 12/05/19 03:00 12/06/19 20:33 Fentanyl Drip Premix IV 2 mcg/kg/hr TITR LUCHO 5.48 mls/hr Administration Protocol 1 MCG/KG/HR Lansoprazole 30 mg 11/27/19 10:00 12/09/19 10:39 Prevacid Solutab FEEDTUBE 30 mg QDAY LUCHO Administration Levetiracetam 500 mg 11/29/19 10:00 12/09/19 10:39 Keppra PO 500 mg BID LUCHO Administration Lorazepam 2 mg 11/26/19 11:09 12/08/19 08:02 Ativan IV 2 mg Q4H PRN Administration Agitation Metoclopramide HCl 5 mg 12/09/19 15:00 Reglan IV Q6H LUCHO Mirtazapine 30 mg 12/06/19 10:00 12/09/19 10:40 Remeron PO 30 mg DAILY LUCHO Administration Multi-Ingred Cream/Lotion/Oil/Oint 1 applic 11/22/19 23:23 Artificial Tears Ophth Oint OU Q4HR PRN Dry Eye(s) Quetiapine Fumarate 300 mg 12/07/19 22:00 12/08/19 22:11 Seroquel PO 300 mg QHS LUCHO Administration Sertraline HCl 25 mg 12/06/19 10:00 12/09/19 10:40 Zoloft PO 25 mg QDAY LUCHO Administration Simple Syrup 15 ml 11/23/19 11:50 Simple Syrup FEEDTUBE PRN PRN Hypoglycemia Simple Syrup 30 ml 11/23/19 11:50 Simple Syrup FEEDTUBE PRN PRN Hypoglycemia Sodium Bicarbonate 325 mg 11/23/19 11:50 Sodium Bicarbonate FEEDTUBE PRN PRN For Clogged Feeding Tube Nutrition/Malnutrition Assess - Dietary Evaluation Nutrition/Malnutrition Findings: Nutrition Notes Start: 11/23/19 11:29 Freq: Status: Active Protocol: Document 12/05/19 13:24 LM (Rec: 12/05/19 13:26 LM [id number]) Nutrition Notes Initial or Follow up Reassessment Current Diagnosis Hypertension Other Pertinent Diagnosis Cardaic arrest, ETOH dependence, UTI Current Diet Vital AF 1.2 at 50 ml/hr Labs/Tests 12/03 Na 140 Pertinent Medications Reviewed Height 5 ft 6 in Weight 54.8 kg [place] Body Weight (kg) 59.09 BMI 19.5 Subjective/Other Information Vital running at 50 ml/hr. pt tolerating. Percent of energy/protein needs met: 100%/100% Burn Absent Trauma Absent GI Symptoms None Current % PO Negligible Minimum of two criteria No Muscle Mass Mild Depletion (non-severe) #1 Nutrition Diagnosis Inadequate oral intake Diagnosis Progress(for reassessment Continues documentation) Is patient on ventilator? Yes Is Patient Ambulatory and/or Out of Bed No REE-([facility]-confined to bed) 1402.224 Calculation Used for Recommendations [facility] Additional Notes Protein: 66-110g (1.2-2g/kg) Fluid: 1 ml/kcal Nutrition Intervention Change Diet Order: TF Nutrition Support: Vital AF 1.2 at 50 ml/hr Flush 200 ml q4h for hypernatremia Flush 80 ml q4h once hypernatremia resolves Kcal 1,440 Protein (gm) 90 Fluid (mL) 973 Goal #1 TF tolerance Goal #2 Meet at least 80% of energy and protein needs via TF Anticipated Discharge Needs: unable to determine at this time Follow-Up By: 12/12/19 Additional Comments F/U for TF tolerance
[2019-12-09] MEDS: METOCLOPRAMIDE 10 MG/2 ML INJ IV SCH ×2 (16:54→22:25)
[2019-12-09] MEDS: QUEtiapine 100 MG TAB PO SCH (22:25)
[2019-12-09] MEDS: hydrALAZINE 20 MG/1 ML INJ IV PRN (22:26)
[2019-12-10] MEDS: METOCLOPRAMIDE 10 MG/2 ML INJ IV SCH ×4 (03:13→21:05)
[2019-12-10] MEDS: chlordiazePOXIDE 25 MG CAP PO SCH ×3 (06:26→21:23)
--- NOTE | 2019-12-10 08:56 | Progress Note ---
Assessment and Plan Acute cardiopulmonary arrest with ROSC Acute hypoxemic respiratory failure on MVS Acute etjytffui-ywrak-jtmgyw encephalopathy Metabolic acidosis/alcoholic acidosis/Lactic acidosis( resolved) Ischemic hepatitis Leucocytosis - persistent Erythrocytosis Tobacco use disorder Alcohol use Disorder -Discussed with RT, the need for daily SBT-continue the same while monitoring response -Bladder scan and straight cath if indicated -Persistent leukocytosis but is on steroids, currently weaning -KUB for abdominal distension, bowel regime and promotility agents -Stop am Seroquel, continue Seroquel 300mg qhs-will adjust dosing based on her mental status -Pending tracheostomy and PEG placement -Continue all care as documented below. -Critical care bundles addressed as documented below -Continue with MVS, Lung protective strategies, monitor airway pressures -VAP bundle addressed -Continue aspiration precautions, HOB>40 -Continue daily assessment for readiness for SBT -Continue Stress ulcer prophylaxis -Continue enteric nutritional support at goal rate. Monitor glycemic control, with target blood glucose 140-180 mg/dL while critically ill. -Avoid hypoglycemia - Continue to wean supplemental oxygen for target O2 sat's > 90% -ABG and CXR prn -Continue to trend leukocytosis -Continue to treat for hepatic encephalopathy-bowel regimen, no need to trend ammonia levels -Continue thiamine, multivitamin and electrolyte replacement -Continue to avoid nephrotoxins, adjust all medications for GFR and CrCL - Continue bronchodilators with pulmonary hygiene - Continue prn analgesia per CPOT score - Continue to maintain of sleep-wake cycle, avoid delirium - PT/OT/ROM exercises - Continue mobility protocol and skin assessment per protocol for pressure ulcer prevention - Continue to monitor for clinical seizures - continue other care per attending / other consultants CONDITION: CRITICAL PROGNOSIS: GUARDED CODE STATUS: FULL CODE The high probability of a clinically significant, sudden or life-threatening deterioration of the [respiratory, cardiovascular,GI/hepatology/Neurology] system(s) required my full and direct attention, intervention and personal management. The aggregate critical care time was [31] minutes without overlap. Time includes spent on; [x] Data Review and interpretation [x] Patient assessment and monitoring of vital signs [x] Documentation [x] Medication orders and management Subjective Date of service: 12/10/19 Principal diagnosis: Ac cardiopulmonary arrest; Ac hypoxemic resp failure; Acute encephalopathy Interval history: Patient is seen today for: Acute cardiopulmonary arrest with ROSC; Acute hypoxemic respiratory failure; Acute metabolic-toxic encephalopathy; Ischemic hepatitis; Leucocytosis with lactic acidosis; Tobacco use disorder; Alcohol use Disorder; High grade fevers Seen and examined at bedside; 24hour events reviewed; nursing and respiratory care staff consulted; no adverse overnight events reported to me; resting peacefully in bed; no fevers, remains orally intubated and on MVS. Appears to be a little more awake, not obeying commands, takes a while to open her eyes to ve rbal command, and even then barely Abdominal distension, tube feeding on hold, abdominal distension worse today Tolerating CPAP 6, with spontaneously generated tidal volumes of 350 Objective Vital Signs - 12hr 12/09/19 12/09/19 12/09/19 21:00 22:00 22:26 Temperature Pulse Rate 76 85 81 Respiratory 16 16 Rate Blood Pressure 167/93 169/95 169/95 O2 Sat by Pulse 100 100 Oximetry 12/09/19 12/09/19 12/10/19 23:00 23:59 00:00 Temperature 98.0 F Pulse Rate 100 H 107 H 107 H Respiratory 16 14 16 Rate Blood Pressure 169/95 102/61 126/74 O2 Sat by Pulse 100 100 99 Oximetry 12/10/19 12/10/19 12/10/19 00:04 00:16 01:00 Temperature Pulse Rate 84 98 H 95 H Respiratory 16 Rate Blood Pressure 126/74 120/75 O2 Sat by Pulse 100 100 Oximetry 12/10/19 12/10/19 12/10/19 02:00 03:00 04:00 Temperature 98.8 F Pulse Rate 88 89 91 H Respiratory 16 16 16 Rate Blood Pressure 135/79 146/83 136/85 O2 Sat by Pulse 100 100 Oximetry 12/10/19 12/10/19 12/10/19 04:38 05:00 06:00 Temperature Pulse Rate 99 H 90 90 Respiratory 16 16 Rate Blood Pressure 125/79 147/90 146/87 O2 Sat by Pulse 100 100 100 Oximetry 12/10/19 12/10/19 07:00 08:00 Temperature Pulse Rate 92 H 91 H Respiratory 16 16 Rate Blood Pressure 150/92 146/83 O2 Sat by Pulse 100 Oximetry Constitutional: no acute distress, other (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, orally intuabted ETT at 23 cm at the lip to mVS, mild dys-synchrony) Eyes: non-icteric ENT: oropharynx moist, other (ETT 23 cm AMALIA) Neck: supple, no lymphadenopathy, no JVD Effort: mildly labored Ascultation: Bilateral: diminished breath sounds, rhonchi Percussion: Bilateral: not dull Cardiovascular: regular rate and rhythm (tachycardia), other (S1,S2) Gastrointestinal: normoactive bowel sounds, soft, non-tender, other (distended, bladder distension) Integumentary: normal Extremities: no cyanosis, no edema, pulses normal, no ischemia or petechiae Neurologic: unable to assess, other (awake but not tracking voice ) Psychiatric: other (Psychiatric: Unable to assess) CBC and BMP: 12/18/19 04:53 12/18/19 04:53 ABG, PT/INR, D-dimer: ABG ABG pH 7.437 pH Units (7.350-7.450) 12/03/19 20:00 ABG pCO2 50.7 mm Hg 12/03/19 20:00 ABG pO2 68.3 mm Hg (80.0-90.0) L 12/03/19 20:00 ABG O2 Saturation 93.5 % (95.0-99.0) L 12/03/19 20:00 PT/INR, D-dimer PT 17.0 Sec. (12.2-14.9) H 11/23/19 03:47 INR 1.36 (0.87-1.13) H 11/23/19 03:47 Abnormal lab findings: Abnormal Labs 11/22/19 11/22/19 11/22/19 23:17 23:18 23:27 WBC 21.2 H RBC 3.59 L Hgb 9.8 L Hct MCH 27 L RDW 18.6 H Plt Count 454 H Lymph % (Auto) [place] % (Auto) [place] # Seg Neutrophils % Seg Neuts % (Manual) 86.0 H Lymphocytes % (Manual) 9.0 L Seg Neutrophils # Seg Neutrophils # Man 18.2 H Lymphocytes # (Manual) Monocytes # (Manual) 1.1 H PT INR APTT ABG pH ABG pO2 ABG HCO3 ABG O2 Saturation ABG Base Excess ABG Hemoglobin Oxyhemoglobin Sodium Potassium Chloride Carbon Dioxide BUN Creatinine Glucose POC Glucose 53 L Lactic Acid Calcium Ionized Calcium Phosphorus Magnesium Total Bilirubin AST ALT Alkaline Phosphatase Ammonia Total Creatine Kinase CK-MB (CK-2) CK-MB (CK-2) Rel Index Total Protein Albumin Urine WBC (Auto) 40.0 H Salicylates Acetaminophen Plasma/Serum Alcohol 11/22/19 11/22/19 11/22/19 23:27 23:27 23:27 WBC RBC Hgb Hct MCH RDW Plt Count Lymph % (Auto) [place] % (Auto) [place] # Seg Neutrophils % Seg Neuts % (Manual) Lymphocytes % (Manual) Seg Neutrophils # Seg Neutrophils # Man Lymphocytes # (Manual) Monocytes # (Manual) PT INR APTT ABG pH ABG pO2 ABG HCO3 ABG O2 Saturation ABG Base Excess ABG Hemoglobin Oxyhemoglobin Sodium Potassium 2.4 L* Chloride 85.1 L Carbon Dioxide 19 L BUN Creatinine 0.5 L Glucose 261 H POC Glucose Lactic Acid Calcium Ionized Calcium Phosphorus Magnesium Total Bilirubin AST 609 H ALT 152 H Alkaline Phosphatase 160 H Ammonia 117.0 H Total Creatine Kinase 139 H CK-MB (CK-2) 8.3 H CK-MB (CK-2) Rel Index 5.9 H Total Protein Albumin 3.6 L Urine WBC (Auto) Salicylates < 0.3 L Acetaminophen Plasma/Serum Alcohol 11/22/19 11/22/19 11/23/19 23:27 23:27 01:10 WBC RBC Hgb Hct MCH RDW Plt Count Lymph % (Auto) [place] % (Auto) [place] # Seg Neutrophils % Seg Neuts % (Manual) Lymphocytes % (Manual) Seg Neutrophils # Seg Neutrophils # Man Lymphocytes # (Manual) Monocytes # (Manual) PT INR APTT ABG pH 7.273 L ABG pO2 209.7 H ABG HCO3 ABG O2 Saturation 99.2 H ABG Base Excess -3.9 L ABG Hemoglobin 10.6 L Oxyhemoglobin 93.9 L Sodium Potassium Chloride Carbon Dioxide BUN Creatinine Glucose POC Glucose Lactic Acid Calcium Ionized Calcium Phosphorus Magnesium Total Bilirubin AST ALT Alkaline Phosphatase Ammonia Total Creatine Kinase CK-MB (CK-2) CK-MB (CK-2) Rel Index Total Protein Albumin Urine WBC (Auto) Salicylates Acetaminophen < 5.0 L Plasma/Serum Alcohol 0.08 H 11/23/19 11/23/19 11/23/19 01:19 01:19 03:47 WBC RBC Hgb Hct MCH RDW Plt Count Lymph % (Auto) [place] % (Auto) [place] # Seg Neutrophils % Seg Neuts % (Manual) Lymphocytes % (Manual) Seg Neutrophils # Seg Neutrophils # Man Lymphocytes # (Manual) Monocytes # (Manual) PT 16.3 H INR 1.29 H APTT ABG pH ABG pO2 ABG HCO3 ABG O2 Saturation ABG Base Excess ABG Hemoglobin Oxyhemoglobin Sodium Potassium Chloride Carbon Dioxide BUN Creatinine Glucose POC Glucose Lactic Acid 2.10 H* 5.00 H* Calcium Ionized Calcium Phosphorus Magnesium Total Bilirubin AST ALT Alkaline Phosphatase Ammonia Total Creatine Kinase CK-MB (CK-2) CK-MB (CK-2) Rel Index Total Protein Albumin Urine WBC (Auto) Salicylates Acetaminophen Plasma/Serum Alcohol 11/23/19 11/23/19 11/23/19 03:47 03:47 04:53 WBC RBC Hgb 9.4 L Hct MCH RDW Plt Count Lymph % (Auto) [place] % (Auto) [place] # Seg Neutrophils % Seg Neuts % (Manual) Lymphocytes % (Manual) Seg Neutrophils # Seg Neutrophils # Man Lymphocytes # (Manual) Monocytes # (Manual) PT 17.0 H INR 1.36 H APTT 128.2 H* ABG pH ABG pO2 ABG HCO3 ABG O2 Saturation ABG Base Excess ABG Hemoglobin Oxyhemoglobin Sodium Potassium Chloride Carbon Dioxide 18 L BUN Creatinine 0.5 L Glucose 105 H POC Glucose Lactic Acid Calcium 8.3 L Ionized Calcium Phosphorus 2.40 L Magnesium Total Bilirubin 1.30 H AST 761 H ALT 158 H Alkaline Phosphatase 143 H Ammonia Total Creatine Kinase CK-MB (CK-2) CK-MB (CK-2) Rel Index Total Protein Albumin 2.8 L Urine WBC (Auto) Salicylates Acetaminophen Plasma/Serum Alcohol 11/23/19 11/23/19 11/23/19 05:12 06:32 06:32 WBC 16.8 H RBC 3.31 L Hgb 8.9 L Hct 28.7 L MCH 27 L RDW 18.6 H Plt Count Lymph % (Auto) [place] % (Auto) [place] # Seg Neutrophils % Seg Neuts % (Manual) 94.0 H Lymphocytes % (Manual) 1.0 L Seg Neutrophils # Seg Neutrophils # Man 15.8 H Lymphocytes # (Manual) 0.2 L Monocytes # (Manual) PT INR APTT ABG pH ABG pO2 ABG HCO3 ABG O2 Saturation ABG Base Excess -3.2 L ABG Hemoglobin 9.0 L Oxyhemoglobin 93.6 L Sodium Potassium Chloride Carbon Dioxide BUN Creatinine Glucose POC Glucose Lactic Acid Calcium Ionized Calcium 4.5 L Phosphorus Magnesium Total Bilirubin AST ALT Alkaline Phosphatase Ammonia Total Creatine Kinase CK-MB (CK-2) CK-MB (CK-2) Rel Index Total Protein Albumin Urine WBC (Auto) Salicylates Acetaminophen Plasma/Serum Alcohol 11/23/19 11/24/19 11/24/19 06:32 04:35 04:35 WBC RBC Hgb Hct MCH RDW Plt Count Lymph % (Auto) [place] % (Auto) [place] # Seg Neutrophils % Seg Neuts % (Manual) Lymphocytes % (Manual) Seg Neutrophils # Seg Neutrophils # Man Lymphocytes # (Manual) Monocytes # (Manual) PT INR APTT ABG pH ABG pO2 ABG HCO3 ABG O2 Saturation ABG Base Excess ABG Hemoglobin Oxyhemoglobin Sodium Potassium Chloride Carbon Dioxide BUN Creatinine Glucose POC Glucose Lactic Acid 3.30 H* Calcium Ionized Calcium Phosphorus Magnesium 1.40 L Total Bilirubin AST ALT Alkaline Phosphatase Ammonia 98.0 H Total Creatine Kinase CK-MB (CK-2) CK-MB (CK-2) Rel Index Total Protein Albumin Urine WBC (Auto) Salicylates Acetaminophen Plasma/Serum Alcohol 11/24/19 11/25/19 11/25/19 05:22 04:34 05:05 WBC 17.3 H RBC 2.88 L Hgb 7.8 L Hct 24.6 L MCH 27 L RDW 18.5 H Plt Count Lymph % (Auto) 7.7 L [place] % (Auto) 9.7 H [place] # 1.7 H Seg Neutrophils % 82.2 H Seg Neuts % (Manual) Lymphocytes % (Manual) Seg Neutrophils # 14.2 H Seg Neutrophils # Man Lymphocytes # (Manual) Monocytes # (Manual) PT INR APTT ABG pH 7.475 H ABG pO2 ABG HCO3 29.4 H 32.3 H ABG O2 Saturation ABG Base Excess 5.4 H 6.9 H ABG Hemoglobin 9.0 L 10.6 L Oxyhemoglobin 94.3 L Sodium Potassium Chloride Carbon Dioxide BUN Creatinine Glucose POC Glucose Lactic Acid Calcium Ionized Calcium Phosphorus Magnesium Total Bilirubin AST ALT Alkaline Phosphatase Ammonia Total Creatine Kinase CK-MB (CK-2) CK-MB (CK-2) Rel Index Total Protein Albumin Urine WBC (Auto) Salicylates Acetaminophen Plasma/Serum Alcohol 11/25/19 11/25/19 11/26/19 05:05 22:46 03:31 WBC RBC Hgb Hct MCH RDW Plt Count Lymph % (Auto) [place] % (Auto) [place] # Seg Neutrophils % Seg Neuts % (Manual) Lymphocytes % (Manual) Seg Neutrophils # Seg Neutrophils # Man Lymphocytes # (Manual) Monocytes # (Manual) PT INR APTT ABG pH 7.459 H ABG pO2 ABG HCO3 34.2 H ABG O2 Saturation ABG Base Excess 9.4 H ABG Hemoglobin 7.6 L Oxyhemoglobin 94.8 L Sodium 152 H D 147 H Potassium 2.3 L* D 2.8 L* D Chloride 107.8 H Carbon Dioxide 31 H D 33 H BUN Creatinine 0.6 L 0.6 L Glucose 148 H 177 H POC Glucose Lactic Acid Calcium Ionized Calcium Phosphorus Magnesium Total Bilirubin AST 105 H ALT 71 H Alkaline Phosphatase 155 H Ammonia Total Creatine Kinase CK-MB (CK-2) CK-MB (CK-2) Rel Index Total Protein 5.2 L D Albumin 2.9 L Urine WBC (Auto) Salicylates Acetaminophen Plasma/Serum Alcohol 11/26/19 11/26/19 11/27/19 08:24 08:24 04:20 WBC 12.0 H RBC 3.00 L Hgb 8.0 L 9.3 L Hct 25.9 L 29.7 L MCH 27 L RDW 18.5 H Plt Count Lymph % (Auto) [place] % (Auto) [place] # Seg Neutrophils % Seg Neuts % (Manual) 89.0 H Lymphocytes % (Manual) 4.0 L Seg Neutrophils # Seg Neutrophils # Man 10.7 H Lymphocytes # (Manual) 0.5 L Monocytes # (Manual) PT INR APTT ABG pH ABG pO2 ABG HCO3 ABG O2 Saturation ABG Base Excess ABG Hemoglobin Oxyhemoglobin Sodium 146 H Potassium 3.4 L D Chloride Carbon Dioxide BUN Creatinine 0.5 L Glucose 165 H POC Glucose Lactic Acid Calcium Ionized Calcium Phosphorus Magnesium Total Bilirubin AST 57 H ALT Alkaline Phosphatase 166 H Ammonia Total Creatine Kinase CK-MB (CK-2) CK-MB (CK-2) Rel Index Total Protein Albumin 2.9 L Urine WBC (Auto) Salicylates Acetaminophen Plasma/Serum Alcohol 11/27/19 11/27/19 11/27/19 04:28 04:28 04:42 WBC RBC Hgb Hct MCH RDW Plt Count Lymph % (Auto) [place] % (Auto) [place] # Seg Neutrophils % Seg Neuts % (Manual) Lymphocytes % (Manual) Seg Neutrophils # Seg Neutrophils # Man Lymphocytes # (Manual) Monocytes # (Manual) PT INR APTT ABG pH 7.470 H ABG pO2 74.0 L ABG HCO3 33.8 H ABG O2 Saturation ABG Base Excess 9.1 H ABG Hemoglobin 8.7 L Oxyhemoglobin 94.7 L Sodium 146 H Potassium 2.9 L* Chloride Carbon Dioxide BUN 25 H Creatinine Glucose 213 H POC Glucose Lactic Acid Calcium Ionized Calcium Phosphorus 1.00 L Magnesium Total Bilirubin AST ALT Alkaline Phosphatase Ammonia Total Creatine Kinase CK-MB (CK-2) CK-MB (CK-2) Rel Index Total Protein Albumin Urine WBC (Auto) Salicylates Acetaminophen Plasma/Serum Alcohol 11/27/19 11/27/19 11/27/19 05:37 12:20 15:46 WBC RBC Hgb Hct MCH RDW Plt Count Lymph % (Auto) [place] % (Auto) [place] # Seg Neutrophils % Seg Neuts % (Manual) Lymphocytes % (Manual) Seg Neutrophils # Seg Neutrophils # Man Lymphocytes # (Manual) Monocytes # (Manual) PT INR APTT ABG pH ABG pO2 ABG HCO3 ABG O2 Saturation ABG Base Excess ABG Hemoglobin Oxyhemoglobin Sodium 146 H Potassium 3.5 L D Chloride Carbon Dioxide BUN 24 H Creatinine 0.6 L Glucose 187 H POC Glucose 117 H 220 H Lactic Acid Calcium Ionized Calcium Phosphorus Magnesium Total Bilirubin AST ALT Alkaline Phosphatase Ammonia Total Creatine Kinase CK-MB (CK-2) CK-MB (CK-2) Rel Index Total Protein Albumin Urine WBC (Auto) Salicylates Acetaminophen Plasma/Serum Alcohol 11/27/19 11/28/19 11/28/19 17:28 05:00 05:02 WBC RBC Hgb Hct MCH RDW Plt Count Lymph % (Auto) [place] % (Auto) [place] # Seg Neutrophils % Seg Neuts % (Manual) Lymphocytes % (Manual) Seg Neutrophils # Seg Neutrophils # Man Lymphocytes # (Manual) Monocytes # (Manual) PT INR APTT ABG pH ABG pO2 72.4 L ABG HCO3 33.6 H ABG O2 Saturation 94.1 L ABG Base Excess 7.3 H ABG Hemoglobin Oxyhemoglobin 91.8 L Sodium 146 H Potassium 3.3 L Chloride Carbon Dioxide BUN 25 H Creatinine 0.6 L Glucose 176 H POC Glucose 198 H Lactic Acid Calcium Ionized Calcium Phosphorus Magnesium Total Bilirubin AST ALT Alkaline Phosphatase Ammonia Total Creatine Kinase CK-MB (CK-2) CK-MB (CK-2) Rel Index Total Protein Albumin Urine WBC (Auto) Salicylates Acetaminophen Plasma/Serum Alcohol 11/28/19 11/28/19 11/29/19 05:02 18:55 10:43 WBC 15.2 H 19.0 H RBC 3.06 L 3.01 L Hgb 8.3 L 8.3 L Hct 27.0 L 26.4 L MCH 27 L RDW 19.0 H 19.7 H Plt Count 479 H 611 H Lymph % (Auto) [place] % (Auto) [place] # Seg Neutrophils % Seg Neuts % (Manual) 92.0 H Lymphocytes % (Manual) 2.0 L Seg Neutrophils # Seg Neutrophils # Man 14.0 H Lymphocytes # (Manual) 0.3 L Monocytes # (Manual) PT INR APTT ABG pH ABG pO2 ABG HCO3 ABG O2 Saturation ABG Base Excess ABG Hemoglobin Oxyhemoglobin Sodium Potassium Chloride Carbon Dioxide BUN Creatinine Glucose POC Glucose 138 H Lactic Acid Calcium Ionized Calcium Phosphorus Magnesium Total Bilirubin AST ALT Alkaline Phosphatase Ammonia Total Creatine Kinase CK-MB (CK-2) CK-MB (CK-2) Rel Index Total Protein Albumin Urine WBC (Auto) Salicylates Acetaminophen Plasma/Serum Alcohol 11/29/19 11/29/19 11/29/19 10:43 12:27 19:25 WBC RBC Hgb Hct MCH RDW Plt Count Lymph % (Auto) [place] % (Auto) [place] # Seg Neutrophils % Seg Neuts % (Manual) Lymphocytes % (Manual) Seg Neutrophils # Seg Neutrophils # Man Lymphocytes # (Manual) Monocytes # (Manual) PT INR APTT ABG pH ABG pO2 ABG HCO3 ABG O2 Saturation ABG Base Excess ABG Hemoglobin Oxyhemoglobin Sodium Potassium 2.8 L* Chloride Carbon Dioxide BUN 20 H Creatinine 0.5 L Glucose 121 H POC Glucose 128 H 120 H Lactic Acid Calcium Ionized Calcium Phosphorus Magnesium Total Bilirubin AST ALT Alkaline Phosphatase Ammonia Total Creatine Kinase CK-MB (CK-2) CK-MB (CK-2) Rel Index Total Protein Albumin Urine WBC (Auto) Salicylates Acetaminophen Plasma/Serum Alcohol 11/29/19 11/30/19 11/30/19 23:46 04:10 05:02 WBC RBC Hgb Hct MCH RDW Plt Count Lymph % (Auto) [place] % (Auto) [place] # Seg Neutrophils % Seg Neuts % (Manual) Lymphocytes % (Manual) Seg Neutrophils # Seg Neutrophils # Man Lymphocytes # (Manual) Monocytes # (Manual) PT INR APTT ABG pH ABG pO2 76.3 L ABG HCO3 32.5 H ABG O2 Saturation ABG Base Excess 6.9 H ABG Hemoglobin 8.0 L Oxyhemoglobin 92.6 L Sodium Potassium Chloride Carbon Dioxide BUN Creatinine Glucose POC Glucose 116 H 128 H Lactic Acid Calcium Ionized Calcium Phosphorus Magnesium Total Bilirubin AST ALT Alkaline Phosphatase Ammonia Total Creatine Kinase CK-MB (CK-2) CK-MB (CK-2) Rel Index Total Protein Albumin Urine WBC (Auto) Salicylates Acetaminophen Plasma/Serum Alcohol 11/30/19 11/30/19 11/30/19 05:25 05:25 12:59 WBC 18.4 H RBC 3.10 L Hgb 8.5 L Hct 27.5 L MCH 27 L RDW 20.9 H Plt Count 691 H Lymph % (Auto) 7.1 L [place] % (Auto) 7.7 H [place] # 1.4 H Seg Neutrophils % 83.4 H Seg Neuts % (Manual) Lymphocytes % (Manual) Seg Neutrophils # 15.4 H Seg Neutrophils # Man Lymphocytes # (Manual) Monocytes # (Manual) PT INR APTT ABG pH ABG pO2 ABG HCO3 ABG O2 Saturation ABG Base Excess ABG Hemoglobin Oxyhemoglobin Sodium 146 H Potassium Chloride 107.2 H Carbon Dioxide BUN Creatinine 0.5 L Glucose 132 H POC Glucose 124 H Lactic Acid Calcium Ionized Calcium Phosphorus Magnesium Total Bilirubin AST 246 H ALT 274 H Alkaline Phosphatase 203 H Ammonia Total Creatine Kinase CK-MB (CK-2) CK-MB (CK-2) Rel Index Total Protein 5.4 L Albumin 2.9 L Urine WBC (Auto) Salicylates Acetaminophen Plasma/Serum Alcohol 11/30/19 12/01/19 12/01/19 17:53 00:05 05:10 WBC RBC Hgb Hct MCH RDW Plt Count Lymph % (Auto) [place] % (Auto) [place] # Seg Neutrophils % Seg Neuts % (Manual) Lymphocytes % (Manual) Seg Neutrophils # Seg Neutrophils # Man Lymphocytes # (Manual) Monocytes # (Manual) PT INR APTT ABG pH ABG pO2 ABG HCO3 ABG O2 Saturation ABG Base Excess ABG Hemoglobin Oxyhemoglobin Sodium Potassium Chloride Carbon Dioxide BUN Creatinine Glucose POC Glucose 113 H 143 H 145 H Lactic Acid Calcium Ionized Calcium Phosphorus Magnesium Total Bilirubin AST ALT Alkaline Phosphatase Ammonia Total Creatine Kinase CK-MB (CK-2) CK-MB (CK-2) Rel Index Total Protein Albumin Urine WBC (Auto) Salicylates Acetaminophen Plasma/Serum Alcohol 12/01/19 12/01/19 12/01/19 05:33 08:23 08:23 WBC 22.7 H RBC 2.88 L Hgb 7.9 L Hct 25.2 L MCH 27 L RDW 21.0 H Plt Count 732 H Lymph % (Auto) [place] % (Auto) [place] # Seg Neutrophils % Seg Neuts % (Manual) 91.0 H Lymphocytes % (Manual) 3.0 L Seg Neutrophils # Seg Neutrophils # Man 20.7 H Lymphocytes # (Manual) 0.7 L Monocytes # (Manual) 1.1 H PT INR APTT ABG pH ABG pO2 68.6 L ABG HCO3 34.1 H ABG O2 Saturation ABG Base Excess 9.0 H ABG Hemoglobin 6.5 L Oxyhemoglobin 94.7 L Sodium Potassium Chloride Carbon Dioxide BUN Creatinine 0.5 L Glucose 125 H POC Glucose Lactic Acid Calcium Ionized Calcium Phosphorus Magnesium Total Bilirubin AST ALT Alkaline Phosphatase Ammonia Total Creatine Kinase CK-MB (CK-2) CK-MB (CK-2) Rel Index Total Protein Albumin Urine WBC (Auto) Salicylates Acetaminophen Plasma/Serum Alcohol 12/01/19 12/01/19 12/01/19 13:21 17:54 20:59 WBC RBC Hgb Hct MCH RDW Plt Count Lymph % (Auto) [place] % (Auto) [place] # Seg Neutrophils % Seg Neuts % (Manual) Lymphocytes % (Manual) Seg Neutrophils # Seg Neutrophils # Man Lymphocytes # (Manual) Monocytes # (Manual) PT INR APTT ABG pH ABG pO2 78.3 L ABG HCO3 33.8 H ABG O2 Saturation 94.9 L ABG Base Excess 7.9 H ABG Hemoglobin 11.5 L Oxyhemoglobin 92.3 L Sodium Potassium Chloride Carbon Dioxide BUN Creatinine Glucose POC Glucose 111 H 115 H Lactic Acid Calcium Ionized Calcium Phosphorus Magnesium Total Bilirubin AST ALT Alkaline Phosphatase Ammonia Total Creatine Kinase CK-MB (CK-2) CK-MB (CK-2) Rel Index Total Protein Albumin Urine WBC (Auto) Salicylates Acetaminophen Plasma/Serum Alcohol 12/02/19 12/03/19 12/04/19 12:55 20:00 04:26 WBC 15.2 H RBC 2.69 L Hgb 7.4 L Hct 23.6 L MCH 27 L RDW 19.9 H Plt Count 838 H Lymph % (Auto) [place] % (Auto) [place] # Seg Neutrophils % Seg Neuts % (Manual) Lymphocytes % (Manual) Seg Neutrophils # Seg Neutrophils # Man Lymphocytes # (Manual) Monocytes # (Manual) PT INR APTT ABG pH ABG pO2 68.3 L ABG HCO3 33.5 H ABG O2 Saturation 93.5 L ABG Base Excess 8.4 H ABG Hemoglobin 7.3 L Oxyhemoglobin 90.9 L Sodium Potassium Chloride Carbon Dioxide BUN Creatinine Glucose POC Glucose 107 H Lactic Acid Calcium Ionized Calcium Phosphorus Magnesium Total Bilirubin AST ALT Alkaline Phosphatase Ammonia Total Creatine Kinase CK-MB (CK-2) CK-MB (CK-2) Rel Index Total Protein Albumin Urine WBC (Auto) Salicylates Acetaminophen Plasma/Serum Alcohol 12/04/19 12/04/19 12/04/19 04:26 07:45 12:02 WBC 15.9 H RBC 2.88 L Hgb 7.9 L Hct 25.1 L MCH RDW 20.4 H Plt Count 839 H Lymph % (Auto) 11.3 L [place] % (Auto) 15.2 H [place] # 2.4 H Seg Neutrophils % 72.4 H Seg Neuts % (Manual) Lymphocytes % (Manual) Seg Neutrophils # 11.5 H Seg Neutrophils # Man Lymphocytes # (Manual) Monocytes # (Manual) PT INR APTT ABG pH ABG pO2 ABG HCO3 ABG O2 Saturation ABG Base Excess ABG Hemoglobin Oxyhemoglobin Sodium Potassium Chloride 96.5 L Carbon Dioxide BUN 21 H Creatinine 0.6 L Glucose 107 H POC Glucose 138 H Lactic Acid Calcium Ionized Calcium Phosphorus Magnesium Total Bilirubin AST ALT Alkaline Phosphatase Ammonia Total Creatine Kinase CK-MB (CK-2) CK-MB (CK-2) Rel Index Total Protein Albumin Urine WBC (Auto) Salicylates Acetaminophen Plasma/Serum Alcohol 12/04/19 12/05/19 12/05/19 18:16 11:55 18:36 WBC RBC Hgb Hct MCH RDW Plt Count Lymph % (Auto) [place] % (Auto) [place] # Seg Neutrophils % Seg Neuts % (Manual) Lymphocytes % (Manual) Seg Neutrophils # Seg Neutrophils # Man Lymphocytes # (Manual) Monocytes # (Manual) PT INR APTT ABG pH ABG pO2 ABG HCO3 ABG O2 Saturation ABG Base Excess ABG Hemoglobin Oxyhemoglobin Sodium Potassium Chloride Carbon Dioxide BUN Creatinine Glucose POC Glucose 135 H 125 H 135 H Lactic Acid Calcium Ionized Calcium Phosphorus Magnesium Total Bilirubin AST ALT Alkaline Phosphatase Ammonia Total Creatine Kinase CK-MB (CK-2) CK-MB (CK-2) Rel Index Total Protein Albumin Urine WBC (Auto) Salicylates Acetaminophen Plasma/Serum Alcohol 12/05/19 12/06/19 12/06/19 23:30 04:14 05:43 WBC RBC Hgb Hct MCH RDW Plt Count Lymph % (Auto) [place] % (Auto) [place] # Seg Neutrophils % Seg Neuts % (Manual) Lymphocytes % (Manual) Seg Neutrophils # Seg Neutrophils # Man Lymphocytes # (Manual) Monocytes # (Manual) PT INR APTT ABG pH ABG pO2 ABG HCO3 ABG O2 Saturation ABG Base Excess ABG Hemoglobin Oxyhemoglobin Sodium Potassium 5.6 H Chloride 95.0 L Carbon Dioxide BUN 48 H Creatinine 1.3 H D Glucose POC Glucose 126 H 121 H Lactic Acid Calcium Ionized Calcium Phosphorus Magnesium Total Bilirubin AST 89 H ALT 98 H Alkaline Phosphatase 476 H Ammonia Total Creatine Kinase CK-MB (CK-2) CK-MB (CK-2) Rel Index Total Protein Albumin 2.8 L Urine WBC (Auto) Salicylates Acetaminophen Plasma/Serum Alcohol 12/06/19 12/06/19 12/07/19 10:39 14:34 00:19 WBC 17.3 H RBC 2.60 L Hgb 7.1 L Hct 22.7 L MCH 27 L RDW 20.1 H Plt Count 832 H Lymph % (Auto) [place] % (Auto) [place] # Seg Neutrophils % Seg Neuts % (Manual) Lymphocytes % (Manual) Seg Neutrophils # Seg Neutrophils # Man Lymphocytes # (Manual) Monocytes # (Manual) PT INR APTT ABG pH ABG pO2 ABG HCO3 ABG O2 Saturation ABG Base Excess ABG Hemoglobin Oxyhemoglobin Sodium Potassium Chloride Carbon Dioxide BUN Creatinine Glucose POC Glucose 128 H 136 H Lactic Acid Calcium Ionized Calcium Phosphorus Magnesium Total Bilirubin AST ALT Alkaline Phosphatase Ammonia Total Creatine Kinase CK-MB (CK-2) CK-MB (CK-2) Rel Index Total Protein Albumin Urine WBC (Auto) Salicylates Acetaminophen Plasma/Serum Alcohol 12/07/19 12/07/19 12/07/19 03:44 03:44 05:53 WBC 16.2 H RBC 2.56 L Hgb 7.1 L Hct 22.3 L MCH RDW 19.4 H Plt Count 782 H Lymph % (Auto) [place] % (Auto) [place] # Seg Neutrophils % Seg Neuts % (Manual) Lymphocytes % (Manual) Seg Neutrophils # Seg Neutrophils # Man Lymphocytes # (Manual) Monocytes # (Manual) PT INR APTT ABG pH ABG pO2 ABG HCO3 ABG O2 Saturation ABG Base Excess ABG Hemoglobin Oxyhemoglobin Sodium Potassium Chloride 95.6 L Carbon Dioxide BUN 56 H Creatinine 1.4 H Glucose 120 H POC Glucose 128 H Lactic Acid Calcium 10.3 H Ionized Calcium Phosphorus Magnesium Total Bilirubin AST ALT Alkaline Phosphatase Ammonia Total Creatine Kinase CK-MB (CK-2) CK-MB (CK-2) Rel Index Total Protein Albumin Urine WBC (Auto) Salicylates Acetaminophen Plasma/Serum Alcohol 12/07/19 12/07/19 12/08/19 12:54 23:47 00:20 WBC RBC Hgb Hct MCH RDW Plt Count Lymph % (Auto) [place] % (Auto) [place] # Seg Neutrophils % Seg Neuts % (Manual) Lymphocytes % (Manual) Seg Neutrophils # Seg Neutrophils # Man Lymphocytes # (Manual) Monocytes # (Manual) PT INR APTT ABG pH ABG pO2 ABG HCO3 ABG O2 Saturation ABG Base Excess ABG Hemoglobin Oxyhemoglobin Sodium Potassium Chloride Carbon Dioxide BUN Creatinine Glucose POC Glucose 128 H 130 H 124 H Lactic Acid Calcium Ionized Calcium Phosphorus Magnesium Total Bilirubin AST ALT Alkaline Phosphatase Ammonia Total Creatine Kinase CK-MB (CK-2) CK-MB (CK-2) Rel Index Total Protein Albumin Urine WBC (Auto) Salicylates Acetaminophen Plasma/Serum Alcohol 12/08/19 12/08/19 12/08/19 06:38 12:04 18:26 WBC RBC Hgb Hct MCH RDW Plt Count Lymph % (Auto) [place] % (Auto) [place] # Seg Neutrophils % Seg Neuts % (Manual) Lymphocytes % (Manual) Seg Neutrophils # Seg Neutrophils # Man Lymphocytes # (Manual) Monocytes # (Manual) PT INR APTT ABG pH ABG pO2 ABG HCO3 ABG O2 Saturation ABG Base Excess ABG Hemoglobin Oxyhemoglobin Sodium Potassium Chloride Carbon Dioxide BUN Creatinine Glucose POC Glucose 137 H 129 H 150 H Lactic Acid Calcium Ionized Calcium Phosphorus Magnesium Total Bilirubin AST ALT Alkaline Phosphatase Ammonia Total Creatine Kinase CK-MB (CK-2) CK-MB (CK-2) Rel Index Total Protein Albumin Urine WBC (Auto) Salicylates Acetaminophen Plasma/Serum Alcohol 12/09/19 12/09/19 12/09/19 00:56 05:34 06:13 WBC RBC Hgb Hct MCH RDW Plt Count Lymph % (Auto) [place] % (Auto) [place] # Seg Neutrophils % Seg Neuts % (Manual) Lymphocytes % (Manual) Seg Neutrophils # Seg Neutrophils # Man Lymphocytes # (Manual) Monocytes # (Manual) PT INR APTT ABG pH ABG pO2 ABG HCO3 ABG O2 Saturation ABG Base Excess ABG Hemoglobin Oxyhemoglobin Sodium 146 H Potassium Chloride Carbon Dioxide BUN 66 H Creatinine 1.9 H Glucose 116 H POC Glucose 130 H 130 H Lactic Acid Calcium Ionized Calcium Phosphorus Magnesium Total Bilirubin AST ALT Alkaline Phosphatase Ammonia Total Creatine Kinase CK-MB (CK-2) CK-MB (CK-2) Rel Index Total Protein Albumin Urine WBC (Auto) Salicylates Acetaminophen Plasma/Serum Alcohol 12/09/19 12/09/19 12/10/19 11:52 17:50 00:14 WBC RBC Hgb Hct MCH RDW Plt Count Lymph % (Auto) [place] % (Auto) [place] # Seg Neutrophils % Seg Neuts % (Manual) Lymphocytes % (Manual) Seg Neutrophils # Seg Neutrophils # Man Lymphocytes # (Manual) Monocytes # (Manual) PT INR APTT ABG pH ABG pO2 ABG HCO3 ABG O2 Saturation ABG Base Excess ABG Hemoglobin Oxyhemoglobin Sodium Potassium Chloride Carbon Dioxide BUN Creatinine Glucose POC Glucose 135 H 120 H 116 H Lactic Acid Calcium Ionized Calcium Phosphorus Magnesium Total Bilirubin AST ALT Alkaline Phosphatase Ammonia Total Creatine Kinase CK-MB (CK-2) CK-MB (CK-2) Rel Index Total Protein Albumin Urine WBC (Auto) Salicylates Acetaminophen Plasma/Serum Alcohol 12/10/19 05:38 WBC RBC Hgb Hct MCH RDW Plt Count Lymph % (Auto) [place] % (Auto) [place] # Seg Neutrophils % Seg Neuts % (Manual) Lymphocytes % (Manual) Seg Neutrophils # Seg Neutrophils # Man Lymphocytes # (Manual) Monocytes # (Manual) PT INR APTT ABG pH ABG pO2 ABG HCO3 ABG O2 Saturation ABG Base Excess ABG Hemoglobin Oxyhemoglobin Sodium Potassium Chloride Carbon Dioxide BUN Creatinine Glucose POC Glucose 115 H Lactic Acid Calcium Ionized Calcium Phosphorus Magnesium Total Bilirubin AST ALT Alkaline Phosphatase Ammonia Total Creatine Kinase CK-MB (CK-2) CK-MB (CK-2) Rel Index Total Protein Albumin Urine WBC (Auto) Salicylates Acetaminophen Plasma/Serum Alcohol Allied health notes reviewed: nursing
[2019-12-10] MEDS: HEPARIN 5,000 UNIT/1 ML VIAL SUB-Q SCH ×2 (09:51→21:24)
[2019-12-10] MEDS: SERTRALINE 25 MG TAB PO SCH (09:51)
[2019-12-10] MEDS: ONDANSETRON 4 MG/2 ML INJ IV PRN (09:51)
[2019-12-10] MEDS: SENNOSIDES/DOCUSATE SODIUM 8.6/50 MG TAB PO SCH ×2 (09:52→21:23)
[2019-12-10] MEDS: levETIRAcetam 500 MG/5 ML ORAL LIQD PO SCH ×2 (09:52→21:22)
[2019-12-10] MEDS: hydrOXYzine PAMOATE 25 MG CAP PO SCH ×2 (09:52→21:45)
[2019-12-10] MEDS: MIRTAZAPINE 30 MG TAB PO SCH (09:52)
[2019-12-10] MEDS: LANSOPRAZOLE 30 MG SOLUTAB FEEDTUBE SCH (09:52)
--- NOTE | 2019-12-10 10:14 | XRay Report ---
ABDOMEN 3 VIEW(S) INCLUDING CHEST INDICATION / CLINICAL INFORMATION: n/v. COMPARISON: None available. FINDINGS: SUPPORT DEVICES: Endotracheal tubes in good position. Nasogastric tube has tip curled in stomach. HEART / MEDIASTINUM: No significant abnormality. LUNGS / PLEURA: Bronchovascular markings are prominent. No significant pulmonary or pleural abnormali ty. No pneumothorax BOWEL: No dilated bowel. FREE AIR / EXTRALUMINAL GAS: None seen. CALCIFICATIONS: No significant abnormal calcifications. ADDITIONAL FINDINGS: None. LUNGS: Visualized lungs show no significant abnormality. SKELETAL STRUCTURES: No significant abnormality. IMPRESSION: 1. No significant abnormality. Signer Name: Wood Nice MD Signed: 12/10/2019 10:10 AM Workstation Name: [id number]
--- NOTE | 2019-12-10 12:51 | Progress Note ---
Assessment and Plan 54-year-old female with ventilator dependent respiratory failure status post cardiac arrest Plan: Obs series reviewed - no obstruction 1. Continue trickle tube feeds and slowly adv as tolerated 2. Vent management per ICU 3. DVT prophylaxis 4. Awaiting family decision regarding trach/peg. The procedure was discussed in detail with the patient's daughter and mother on the telephone. Discussed with NAM Flores. Thank you, please call with questions. Subjective Date of service: 12/10/19 Narrative: Pt seen and examined. No change in condition noted. No f/c. Objective Vital Signs - 12hr 12/10/19 12/10/19 12/10/19 01:00 02:00 03:00 Temperature Pulse Rate 95 H 88 89 Respiratory 16 16 16 Rate Blood Pressure 120/75 135/79 146/83 O2 Sat by Pulse 100 100 Oximetry 12/10/19 12/10/19 12/10/19 04:00 04:38 05:00 Temperature 98.8 F Pulse Rate 91 H 99 H 90 Respiratory 16 16 Rate Blood Pressure 136/85 125/79 147/90 O2 Sat by Pulse 100 100 100 Oximetry 12/10/19 12/10/19 12/10/19 06:00 07:00 08:00 Temperature 98.1 F Pulse Rate 90 92 H 91 H Respiratory 16 16 16 Rate Blood Pressure 146/87 150/92 146/83 O2 Sat by Pulse 100 100 Oximetry 12/10/19 12/10/19 12/10/19 09:00 10:00 11:00 Temperature Pulse Rate 96 H 91 H 105 H Respiratory 16 16 15 Rate Blood Pressure 137/84 146/86 147/84 O2 Sat by Pulse 100 100 92 Oximetry 12/10/19 12/10/19 12/10/19 11:38 11:39 12:00 Temperature 99.2 F Pulse Rate 96 H 109 H Respiratory 16 Rate Blood Pressure 136/79 O2 Sat by Pulse 100 83 L Oximetry - General physical appearance Narrative Exam: Gen: Intubated on vent ENT; ETT and OGT in place CV: S1, S2+ Resp: no wheezes Ext: no c/c/e - Labs 12/07/19 03:44 12/09/19 06:13
[2019-12-10] MEDS: fentaNYL 25 MCG/HR PATCH 72HR TD SCH (16:31)
--- NOTE | 2019-12-10 19:11 | Progress Note ---
Assessment and Plan Assessment and plan: 54-year-old female with a past medical history of Hypertension, Depression, Tobacco use Disorder, Alcohol use Disorder as confirmed by Daughter and pt's mother presents to the hospital status post cardiac arrest. Patient is from home and family called EMS at 22: 27 for the pt who had told family members that she was not feeling good and c/o her chronic hip pain. She urinated and then was speaking, then she " froze and was rigid " per daughter and she became unresponsive and stopped breathing. Immediately, family began CPR. EMS found pt in PEA. Upon their arrival patient in SinuS Tachycardia.. They were unable to intubate patient with a ET tube because she was clenching down therefore Joe airway placed. Patient received Narcan and Epinephrine. Patient's rhythm changed to PEA to sinus bradycardia, to PEA, then to sinus tach after receiving Narcan and Epinephrine. Per the ED physician who evaluated pt, Patient presented with a pulse, intermittent respirations, and bagging support via Joe airway with O2 sat of 100%. Accu-Chek of [address] Rodriguez spoke to patient's family (daughter and mother). MOther is Anh Jesus- [phone] and she would like to be called about pt's progress or notified about the pt. No seizure activity was noted. They deny that patient brown d any preceding infection symptoms, cough, fever, complaints of chest pain, shortness of breath, or any bleeding diathesis, melena, hematochezia, hematuria, hematemesis, or abdominal pain. Patient is a known alcoholic and continues to drink per daughter. No history could be obtained from the pt due to her mechanical ventilation. No previous hx of DVT/PE per mother and daughter. 12/04-: Patient failed CPAP trial became apneic according to documentation. No clinical change, continue current management, monitor H/H Awaiting labs. No new changes at this time opens eyes. Surgeon discussed trach and PEG with family but they want to get more information about hospice which they have been di rected to the pillowcase cleaner. Patient overnight had a episode of vomiting. Zofran started. Acute respiratory failure with hypoxia Seizure disorder Presumed anoxic brain injury Alcohol abuse Acute metabolic encephalopathy/toxic encephalopathy BHAVANA secondary to vasomotor nephropathy Hypertension Status post cardiac arrest Distended abdomen, NGT to suction Transaminitis Acute cystitis Metabolic acidosis/alcoholic acidosis/lactic acidosis Sepsis Ischemic hepatitis Plan Continue Keppra at this time. RE-eval by neurology, no clinical change PEG and Trach being planned for If aggressive treatment is still sought after despite discussion with neurologist will proceed with PEG and trach. Give IV fluids due to worsening renal function Will discuss with pulmonary this morning considering patient's apneic status following CPAP trial. Patient was on restraints as she gets agitated when off sedation. Precedex was added yesterday. And Librium was increased to 50 mg every 8 hours. Patient had intact corneal and cough reflex and withdrew to pain lower extremity initially although out of hospital cardiac arrest was noted. It is less likely that this patient will have any meaningful recovery following extubation. Continue to monitor LFTs She is on antibiotics and this completed a few days 11/29/2019 ago no growth was noted on cultures no fever. We will continue off antibiotics at this time. Restraints Poor prognosis The high probability of a clinically significant, sudden or life threatening deterioration of the [pulmonary, neurology] system(s) required my full and direct attention, intervention and personal management. The aggregate critical care time was [35] minutes. This time is in addition to time spent performing reported procedures but includes the following: [v] Data Review and interpretation (v) Patient assessment and monitoring of vital signs [v] Documentation [v] Medication orders and management History Interval history: Patient seen and examined, remains unresponsive and on full respiratory support, No clinical change. No change, family still has not made decision about trach and peg Hospitalist Physical - Physical exam Narrative exam: General appearance: Present: no acute distress, other (on vent with sedation, elderly female), eyes opens but not following any commands but unresponsive - EENT ENT: no oropharyngeal erythema, no poor dentition, no thrush - Neck Neck: Present: supple - Respiratory Respiratory effort: normal Respiratory: bilateral: diminished (On ventilator.) - Cardiovascular Rhythm: regular Heart Sounds: Absent: systolic murmur, diastolic murmur - Extremities Extremities: no ischemia, pulses intact, pulses symmetrical, normal temperature, normal color Extremity abnormal: edema Peripheral Pulses: within normal limits - Abdominal General gastrointestinal: deferred, non-tender, distended, hypoactive bowel sounds - Integumentary Integumentary: Present: clear, warm, dry Neuro: Unresponsive, tongue protruding. - Constitutional Vitals: Temp Pulse Resp BP Pulse Ox 98.1 F 104 H 16 134/77 96 12/10/19 16:00 12/10/19 18:00 12/10/19 18:00 12/10/19 18:00 12/10/19 17:00 General appearance: Present: no acute distress, other (on vent with sedation, elderly female) Results - Labs CBC & Chem 7: 12/07/19 03:44 12/09/19 06:13 Labs: Laboratory Last Values WBC 16.2 K/mm3 (4.5-11.0) H 12/07/19 03:44 RBC 2.56 M/mm3 (3.65-5.03) L 12/07/19 03:44 Hgb 7.1 gm/dl (10.1-14.3) L 12/07/19 03:44 Hct 22.3 % (30.3-42.9) L 12/07/19 03:44 MCV 87 fl (79-97) 12/07/19 03:44 MCH 28 pg (28-32) 12/07/19 03:44 MCHC 32 % (30-34) 12/07/19 03:44 RDW 19.4 % (13.2-15.2) H 12/07/19 03:44 Plt Count 782 K/mm3 (140-440) H 12/07/19 03:44 Lymph % (Auto) 11.3 % (13.4-35.0) L 12/04/19 07:45 Mcduffie % (Auto) 15.2 % (0.0-7.3) H 12/04/19 07:45 Eos % (Auto) 0.5 % (0.0-4.3) 12/04/19 07:45 Baso % (Auto) 0.6 % (0.0-1.8) 12/04/19 07:45 Lymph # 1.8 K/mm3 (1.2-5.4) 12/04/19 07:45 Mcduffie # 2.4 K/mm3 (0.0-0.8) H 12/04/19 07:45 Eos # 0.1 K/mm3 (0.0-0.4) 12/04/19 07:45 Baso # 0.1 K/mm3 (0.0-0.1) 12/04/19 07:45 Add Manual Diff Complete 12/04/19 07:45 Total Counted 100 12/01/19 08:23 Seg Neutrophils % 72.4 % (40.0-70.0) H 12/04/19 07:45 Seg Neuts % (Manual) 91.0 % (40.0-70.0) H 12/01/19 08:23 Band Neutrophils % 0 % 12/01/19 08:23 Lymphocytes % (Manual) 3.0 % (13.4-35.0) L 12/01/19 08:23 Reactive Lymphs % (Man) 1.0 % 12/01/19 08:23 Monocytes % (Manual) 5.0 % (0.0-7.3) 12/01/19 08:23 Eosinophils % (Manual) 0 % (0.0-4.3) 12/01/19 08:23 Basophils % (Manual) 0 % (0.0-1.8) 12/01/19 08:23 Metamyelocytes % 0 % 12/01/19 08:23 Myelocytes % 0 % 12/01/19 08:23 Promyelocytes % 0 % 12/01/19 08:23 Blast Cells % 0 % 12/01/19 08:23 Nucleated RBC % Not Reportable 12/01/19 08:23 Seg Neutrophils # 11.5 K/mm3 (1.8-7.7) H 12/04/19 07:45 Seg Neutrophils # Man 20.7 K/mm3 (1.8-7.7) H 12/01/19 08:23 Band Neutrophils # 0.0 K/mm3 12/01/19 08:23 Lymphocytes # (Manual) 0.7 K/mm3 (1.2-5.4) L 12/01/19 08:23 Abs React Lymphs (Man) 0.2 K/mm3 12/01/19 08:23 Monocytes # (Manual) 1.1 K/mm3 (0.0-0.8) H 12/01/19 08:23 Eosinophils # (Manual) 0.0 K/mm3 (0.0-0.4) 12/01/19 08:23 Basophils # (Manual) 0.0 K/mm3 (0.0-0.1) 12/01/19 08:23 Metamyelocytes # 0.0 K/mm3 12/01/19 08:23 Myelocytes # 0.0 K/mm3 12/01/19 08:23 Promyelocytes # 0.0 K/mm3 12/01/19 08:23 Blast Cells # 0.0 K/mm3 12/01/19 08:23 WBC Morphology Not Reportable 12/01/19 08:23 Hypersegmented Neuts Not Reportable 12/01/19 08:23 Hyposegmented Neuts Not Reportable 12/01/19 08:23 Hypogranular Neuts Not Reportable 12/01/19 08:23 Smudge Cells Not Reportable 12/01/19 08:23 Toxic Granulation Not Reportable 12/01/19 08:23 Toxic Vacuolation Not Reportable 12/01/19 08:23 Dohle Bodies Not Reportable 12/01/19 08:23 Pelger-Huet Anomaly Not Reportable 12/01/19 08:23 Dominique Rods Not Reportable 12/01/19 08:23 Platelet Estimate Consistent w auto 12/01/19 08:23 Clumped Platelets Not Reportable 12/01/19 08:23 Plt Clumps, EDTA Not Reportable 12/01/19 08:23 Large Platelets Not Reportable 12/01/19 08:23 Giant Platelets Few 12/01/19 08:23 Platelet Satelliting Not Reportable 12/01/19 08:23 Plt Morphology Comment Not Reportable 12/01/19 08:23 RBC Morphology Not Reportable 12/01/19 08:23 Dimorphic RBCs Not Reportable 12/01/19 08:23 Polychromasia Few 12/01/19 08:23 Hypochromasia Few 12/01/19 08:23 Poikilocytosis Not Reportable 12/01/19 08:23 Anisocytosis Not Reportable 12/01/19 08:23 Microcytosis Not Reportable 12/01/19 08:23 Macrocytosis Not Reportable 12/01/19 08:23 Spherocytes Not Reportable 12/01/19 08:23 Pappenheimer Bodies Not Reportable 12/01/19 08:23 Sickle Cells Not Reportable 12/01/19 08:23 Target Cells 1+ 12/01/19 08:23 Tear Drop Cells Not Reportable 12/01/19 08:23 Ovalocytes Not Reportable 12/01/19 08:23 Helmet Cells Not Reportable 12/01/19 08:23 [place] Bodies Not Reportable 12/01/19 08:23 [place] Rings Not Reportable 12/01/19 08:23 Arthur Cells Not Reportable 12/01/19 08:23 Bite Cells Not Reportable 12/01/19 08:23 Crenated Cell Not Reportable 12/01/19 08:23 Elliptocytes Not Reportable 12/01/19 08:23 Acanthocytes (Spur) Not Reportable 12/01/19 08:23 Rouleaux Not Reportable 12/01/19 08:23 Hemoglobin C Crystals Not Reportable 12/01/19 08:23 Schistocytes Not Reportable 12/01/19 08:23 Malaria parasites Not Reportable 12/01/19 08:23 Gregg Bodies Not Reportable 12/01/19 08:23 Hem Pathologist Commnt No 12/01/19 08:23 PT 17.0 Sec. (12.2-14.9) H 11/23/19 03:47 INR 1.36 (0.87-1.13) H 11/23/19 03:47 APTT 128.2 Sec. (24.2-36.6) H* 11/23/19 03:47 Heparin Anti-Xa Level 0.31 U.I./ml (0.3-0.7) 11/23/19 09:03 ABG pH 7.437 pH Units (7.350-7.450) 12/03/19 20:00 ABG pCO2 50.7 mm Hg 12/03/19 20:00 ABG pO2 68.3 mm Hg (80.0-90.0) L 12/03/19 20:00 ABG HCO3 33.5 mmol/L (20.0-26.0) H 12/03/19 20:00 ABG O2 Saturation 93.5 % (95.0-99.0) L 12/03/19 20:00 ABG O2 Content 9.5 (0.0-44) 12/03/19 20:00 ABG Base Excess 8.4 mmol/L (-2.0-3.0) H 12/03/19 20:00 ABG Hemoglobin 7.3 gm/dl (12.0-16.0) L 12/03/19 20:00 ABG Carboxyhemoglobin 2.3 % (0.0-5.0) 12/03/19 20:00 ABG Methemoglobin 0.4 % (0.0-1.5) 12/03/19 20:00 Oxyhemoglobin 90.9 % (95.0-99.0) L 12/03/19 20:00 FiO2 30 % 12/03/19 20:00 Sodium 146 mmol/L (137-145) H 12/09/19 06:13 Potassium 4.0 mmol/L (3.6-5.0) 12/09/19 06:13 Chloride 101.1 mmol/L (98-107) 12/09/19 06:13 Carbon Dioxide 28 mmol/L (22-30) 12/09/19 06:13 Anion Gap 21 mmol/L 12/09/19 06:13 BUN 66 mg/dL (7-17) H 12/09/19 06:13 Creatinine 1.9 mg/dL (0.7-1.2) H 12/09/19 06:13 Estimated GFR 33 ml/min 12/09/19 06:13 BUN/Creatinine Ratio 35 % 12/09/19 06:13 Glucose 116 mg/dL (65-100) H 12/09/19 06:13 POC Glucose 130 (70-105) H 12/10/19 17:34 Lactic Acid 1.80 mmol/L (0.7-2.0) 11/25/19 05:05 Calcium 9.9 mg/dL (8.4-10.2) 12/09/19 06:13 Ionized Calcium 4.5 mg/dL (4.8-5.6) L 11/23/19 06:32 Phosphorus 4.20 mg/dL (2.5-4.5) D 11/28/19 08:59 Magnesium 2.30 mg/dL (1.7-2.3) 11/29/19 13:41 Total Bilirubin 0.60 mg/dL (0.1-1.2) 12/06/19 04:14 AST 89 units/L (5-40) H 12/06/19 04:14 ALT 98 units/L (7-56) H 12/06/19 04:14 Alkaline Phosphatase 476 units/L (35-129) H 12/06/19 04:14 Ammonia 42.0 umol/L (25-60) 11/29/19 13:41 Total Creatine Kinase 139 units/L (30-135) H 11/22/19 23:27 CK-MB (CK-2) 8.3 ng/mL (0.0-4.0) H 11/22/19 23:27 CK-MB (CK-2) Rel Index 5.9 (0-4) H 11/22/19 23:27 Troponin T < 0.010 ng/mL (0.00-0.029) 11/22/19 23:27 Total Protein 7.3 g/dL (6.3-8.2) 12/06/19 04:14 Albumin 2.8 g/dL (3.9-5) L 12/06/19 04:14 Albumin/Globulin Ratio 0.6 % 12/06/19 04:14 Lipase 18 units/L (13-60) 11/23/19 00:34 Procalcitonin 1.09 ng/mL (<0.15) 11/23/19 04:53 Urine Color Yellow (Yellow) 11/22/19 23:17 Urine Turbidity Cloudy (Clear) 11/22/19 23:17 Urine pH 6.0 (5.0-7.0) 11/22/19 23:17 Ur Specific Roberta 1.010 (1.003-1.030) 11/22/19 23:17 Urine Protein >500 mg/dL (Negative) 11/22/19 23:17 Urine Glucose (UA) >=500 mg/dL (Negative) 11/22/19 23:17 Urine Ketones 20 mg/dL (Negative) 11/22/19 23:17 Urine Blood Mod (Negative) 11/22/19 23:17 Urine Nitrite Neg (Negative) 11/22/19 23:17 Urine Bilirubin Neg (Negative) 11/22/19 23:17 Urine Urobilinogen 4.0 mg/dL (<2.0) 11/22/19 23:17 Ur Leukocyte Esterase Neg (Negative) 11/22/19 23:17 Urine WBC (Auto) 40.0 /HPF (0.0-6.0) H 11/22/19 23:17 Urine RBC (Auto) 10.0 /HPF (0.0-6.0) 11/22/19 23:17 U Epithel Cells (Auto) 1.0 /HPF (0-13.0) 11/22/19 23:17 Urine Bacteria (Auto) 2+ /HPF (Negative) 11/22/19 23:17 Urine Mucus Few /HPF 11/22/19 23:17 Salicylates < 0.3 mg/dL (2.8-20.0) L 11/22/19 23:27 Urine Opiates Screen Presumptive negative 11/22/19 23:17 Urine Methadone Screen Presumptive negative 11/22/19 23:17 Acetaminophen < 5.0 ug/mL (10.0-30.0) L 11/22/19 23:27 Ur Barbiturates Screen Presumptive negative 11/22/19 23:17 Ur Phencyclidine Scrn Presumptive negative 11/22/19 23:17 Ur Amphetamines Screen Presumptive negative 11/22/19 23:17 U Benzodiazepines Scrn Presumptive negative 11/22/19 23:17 Urine Cocaine Screen Presumptive negative 11/22/19 23:17 U Marijuana (THC) Screen Presumptive negative 11/22/19 23:17 Drugs of Abuse Note Disclamer 11/22/19 23:17 Plasma/Serum Alcohol 0.08 % (0-0.07) H 11/22/19 23:27 Hepatitis A IgM Ab Non-reactive (NonReactive) 11/23/19 01:19 Hep Bs Antigen Non-reactive (Negative) 11/23/19 01:19 Hep B Core IgM Ab Non-reactive (NonReactive) 11/23/19 01:19 Hepatitis C Antibody Non-reactive (NonReactive) 11/23/19 01:19 - Diagnostic Impressions Diagnostic Impressions: Echocardiogram 11/23/19 03:58 Transthoracic Echocardiogram Indication: Cardiac arrest BP: 131/89 HR: 115 Conclusions *The study quality is technically difficult. *Global left ventricular wall motion and contractility are within normal limits. *The estimated ejection fraction is 55-60%. *Abnormal left ventricular diastolic filling is observed, consistent with impaired relaxation. *There is no pericardial effusion. Findings Procedure Info: The study quality is technically difficult. The study was technically limited due to the patient's inability to lay in the left lateral decubitus position. Left Ventricle: The left ventricular chamber size is normal. There is no left ventricular hypertrophy. Global left ventricular wall motion and contractility are within normal limits. Global left ventricular systolic function is normal. The estimated ejection fraction is 55-60%. Abnormal left ventricular diastolic filling is observed, consistent with impaired relaxation. Left Atrium: The left atrial chamber size is normal. Aortic Valve: The aortic valve leaflets are mildly thickened. Mitral Valve: The mitral valve leaflets are mildly thickened. There is no evidence of mitral regurgitation. Tricuspid Valve: The tricuspid valve leaflets are normal. There is trace tricuspid regurgitation. The right ventricular systolic pressure is calculated at 33 mmHg. Pulmonic Valve: The pulmonic valve appears normal. Pericardium: The pericardium appears normal. There is no pericardial effusion. Aorta: The aorta appears normal. Venous: The inferior vena cava appears normal in size. Measurements Chambers 2D Name Value Normal Range IVSd (2D) 0.94 cm (0.6 - 1.1) LVPWd (2D) 0.81 cm (0.6 - 1.1) LVIDd (2D) 3.6 cm (3.7 - 5.6) LVIDs (2D) 2.27 cm (2 - 3.8) LV FS (2D) 36.93 % - EF Teichholz (2D) 67.76 % - Ao root diameter (2D) 3.03 cm (2 - 3.7) Volumes/Mass Name Value Normal Range LA ESV SP 4CH (A/L) 16.89 ml - LA ESV SP 4CH (MOD) 15.52 ml - Diastolic/Systolic Function Name Value Normal Range MV E-wave Vmax 0.55 m/sec - MV deceleration time 200.89 msec - MV A-wave Vmax 0.68 m/sec - MV E:A ratio 0.82 ratio - Aortic Valve Name Value Normal Range AV Vmax 1.1 m/sec - AV VTI 15.9 cm - AV peak gradient 4.86 mmHg - AV mean gradient 2.59 mmHg - LVOT diameter 2 cm - LVOT Vmax 1.03 m/sec - LVOT VTI 15.87 cm - LVOT peak gradient 4.24 mmHg - LVOT mean gradient 2.41 mmHg - SV LVOT 49.77 ml - JOSÉ MIGUEL (continuity Vmax) 2.93 cm2 - JOSÉ MIGUEL (continuity VTI) 3.13 cm2 - Tricuspid Valve Name Value Normal Range TR Vmax 2.74 m/sec - TR peak gradient 303 mmHg - RAP 3 mmHg - RVSP 33 mmHg - IVC diameter 1.77 cm (1.2 - 2.3) Pulmonic Valve/Qp:Qs Name Value Normal Range PV Vmax 0.77 m/sec - PV peak gradient 2.4 mmHg - PV acceleration time 114.18 msec - Dela Cruz/IV: Voiding Method External Female Catheter IV Catheter Type [Right Wrist] Peripheral IV IV Catheter Type [Left Wrist] Peripheral IV IV Catheter Type [Left Peripheral IV Antecubital] IV Catheter Type [Right INT / Saline Lock Forearm] IV Catheter Type [Left Hand] Peripheral IV Active Medications - Current Medications Current Medications: Generic Name Dose Route Start Last Admin Trade Name Freq PRN Reason Stop Dose Admin Acetaminophen 650 mg 12/06/19 10:25 12/06/19 11:22 Tylenol FEEDTUBE 650 mg Q6H PRN Administration TEMP >/=100.3 Lipase/Protease/Amylase 1 each 11/23/19 11:[address] 10,500 Unit FEEDTUBE PRN PRN For Clogged Feeding Tube Chlordiazepoxide HCl 50 mg 12/04/19 14:00 12/10/19 16:31 Librium PO 50 mg Q8H LUCHO Administration Fentanyl 25 mcg 12/04/19 17:00 12/10/19 16:31 Duragesic TD 25 mcg Q3D LUCHO Administration Fentanyl 50 mcg 12/05/19 02:10 Sublimaze IV Q10MIN PRN ANALGESIA Heparin Sodium (Porcine) 5,000 unit 11/23/19 22:00 12/10/19 09:51 Heparin SUB-Q 5,000 unit Q12HR LUCHO Administration Hydralazine HCl 10 mg 11/24/19 00:45 12/09/19 22:26 Apresoline IV 10 mg Q6H PRN Administration SBP > 160 Hydrophilic Ointment 1 applic 11/22/19 23:23 Vaseline Lip Therapy TP Q2HR PRN Dry Lips Hydroxyzine Pamoate 25 mg 12/06/19 10:00 12/10/19 09:52 Vistaril PO 25 mg BID LUCHO Administration Fentanyl Citrate 2,000 mcg in 100 mls @ 2.74 mls/hr 12/05/19 03:00 12/06/19 20:33 Fentanyl Drip Premix IV 2 mcg/kg/hr TITR LUCHO 5.48 mls/hr Administration Protocol 1 MCG/KG/HR Lansoprazole 30 mg 11/27/19 10:00 12/10/19 09:52 Prevacid Solutab FEEDTUBE 30 mg QDAY LUCHO Administration Levetiracetam 500 mg 11/29/19 10:00 12/10/19 09:52 Keppra PO 500 mg BID LUCHO Administration Lorazepam 2 mg 11/26/19 11:09 12/08/19 08:02 Ativan IV 2 mg Q4H PRN Administration Agitation Metoclopramide HCl 5 mg 12/09/19 15:00 12/10/19 16:31 Reglan IV 5 mg Q6H LUCHO Administration Mirtazapine 30 mg 12/06/19 10:00 12/10/19 09:52 Remeron PO 30 mg DAILY LUCHO Administration Multi-Ingred Cream/Lotion/Oil/Oint 1 applic 11/22/19 23:23 Artificial Tears Ophth Oint OU Q4HR PRN Dry Eye(s) Ondansetron HCl 4 mg 12/10/19 07:53 12/10/19 09:51 Zofran IV 4 mg Q4H PRN Administration Nausea And Vomiting Quetiapine Fumarate 300 mg 12/07/19 22:00 12/09/19 22:25 Seroquel PO 300 mg QHS LUCHO Administration Senna/Docusate Sodium 2 tab 12/10/19 10:00 12/10/19 09:52 Senokot S PO 2 tab BID LUCHO Administration Sertraline HCl 25 mg 12/06/19 10:00 12/10/19 09:51 Zoloft PO 25 mg QDAY LUCHO Administration Simple Syrup 15 ml 11/23/19 11:50 Simple Syrup FEEDTUBE PRN PRN Hypoglycemia Simple Syrup 30 ml 11/23/19 11:50 Simple Syrup FEEDTUBE PRN PRN Hypoglycemia Sodium Bicarbonate 325 mg 11/23/19 11:50 Sodium Bicarbonate FEEDTUBE PRN PRN For Clogged Feeding Tube Nutrition/Malnutrition Assess - Dietary Evaluation Nutrition/Malnutrition Findings: Nutrition Notes Start: 11/23/19 11:29 Freq: Status: Active Protocol: Document 12/05/19 13:24 LM (Rec: 12/05/19 13:26 LM [email or web address]) Nutrition Notes Initial or Follow up Reassessment Current Diagnosis Hypertension Other Pertinent Diagnosis Cardaic arrest, ETOH dependence, UTI Current Diet Vital AF 1.2 at 50 ml/hr Labs/Tests 12/03 Na 140 Pertinent Medications Reviewed Height 5 ft 6 in Weight 54.8 kg [place] Body Weight (kg) 59.09 BMI 19.5 Subjective/Other Information Vital running at 50 ml/hr. pt tolerating. Percent of energy/protein needs met: 100%/100% Burn Absent Trauma Absent GI Symptoms None Current % PO Negligible Minimum of two criteria No Muscle Mass Mild Depletion (non-severe) #1 Nutrition Diagnosis Inadequate oral intake Diagnosis Progress(for reassessment Continues documentation) Is patient on ventilator? Yes Is Patient Ambulatory and/or Out of Bed No REE-([facility]-confined to bed) 1402.224 Calculation Used for Recommendations [facility] Additional Notes Protein: 66-110g (1.2-2g/kg) Fluid: 1 ml/kcal Nutrition Intervention Change Diet Order: TF Nutrition Support: Vital AF 1.2 at 50 ml/hr Flush 200 ml q4h for hypernatremia Flush 80 ml q4h once hypernatremia resolves Kcal 1,440 Protein (gm) 90 Fluid (mL) 973 Goal #1 TF tolerance Goal #2 Meet at least 80% of energy and protein needs via TF Anticipated Discharge Needs: unable to determine at this time Follow-Up By: 12/12/19 Additional Comments F/U for TF tolerance
[2019-12-10] MEDS: QUEtiapine 100 MG TAB PO SCH (21:23)
[2019-12-11] MEDS: METOCLOPRAMIDE 10 MG/2 ML INJ IV SCH ×4 (02:45→22:53)
--- NOTE | 2019-12-11 10:23 | Progress Note ---
Assessment and Plan Assessment and plan: Patient is a 54-year-old woman with a history of Hypertension, Depression, tobacco and alcohol dependency who presented to [facility] ED on 11/22/2019 due to cardiac arrest outside of the hospital. EMS found pt in PEA. Upon their arrival patient in sinus tachycardia. EMS were unable to intubate patient with a ET tube because she was clenching down therefore Joe airway placed per records. Patient received Narcan and Epinephrine. Patient's rhythm changed to PEA to sinus bradycardia, to PEA, then to sinus tach after receiving Narcan and Epinephrine. Per the ED physician who evaluated pt, Patient presented with a pulse, intermittent respirations, and bagging support via Joe airway with O2 sat of 100%. Accu-Chek of 71 obtained by EMS Status post cardiac arrest, etiology unknown Acute respiratory failure with hypoxia s/p Intubation via ETT >96 hours: Trach and PEG planned, CCM following Seizure disorder: treat with Keppra Presumed anoxic brain injury: Neurology is following Alcohol abuse: [facility] protocol Acute metabolic encephalopathy/toxic encephalopathy due to the above BHAVANA secondary to vasomotor nephropathy: treat with IVF Hypertension: watch bp closely, prn IV antihypertensives prn Distended abdomen: treat with NGT to suction Transaminitis with Ischemic hepatitis Acute cystitis with Sepsis, not sure POA, treated with antibiotics and this completed a few days 11/29/2019 ago no growth was noted on cultures no fever. We will continue off antibiotics at this time. Metabolic acidosis/alcoholic acidosis/lactic acidosis Full code DVT ppx: sq heparin 12/04-: Patient failed CPAP trial became apneic according to documentation. No clinical change, continue current management, monitor H/H Awaiting labs. No new changes at this time opens eyes. Surgeon discussed trach and PEG with family b ut they want to get more information about hospice which they have been directed to the land development project manager. Patient overnight had a episode of vomiting. Zofran started. 12/11/19: I took over patient care on day 18, Patient remains intubated, daily weaning trails. Trach and PEG planned once family consents. Mother is Anh Jesus @ [phone]. CCT 31 minutes History Interval history: Patient was seen and examined. Follow-up on current diagnosis of Respiratory failure. Overnight uneventful as no events directly reported to me. Imaging, nursing note, chart, labs and old chart reviewed. Hospitalist Physical - Physical exam Narrative exam: Gen: critical ill, intubated HEENT: ETT in place Neck: supple, no adenopathy, no thyromegaly, no JVD CVS/Heart: Regular Tachycardia, normal S1S2, pulses present bilaterally Chest/Lungs: CTA B, Symmetrical chest expansion, good air entry bilaterally GI/Abdomen: soft, NTND, good bowel sounds, no guarding or rebound Neuro: doesnt follow commands Psych: not responding - Constitutional Vitals: Temp Pulse Resp BP Pulse Ox 99 F 104 H 18 150/84 99 12/11/19 03:36 12/11/19 10:00 12/11/19 10:00 12/11/19 10:00 12/11/19 10:00 General appearance: Present: no acute distress, other (on vent with sedation) Results - Labs CBC & Chem 7: 12/07/19 03:44 12/09/19 06:13 Labs: Laboratory Last Values WBC 16.2 K/mm3 (4.5-11.0) H 12/07/19 03:44 RBC 2.56 M/mm3 (3.65-5.03) L 12/07/19 03:44 Hgb 7.1 gm/dl (10.1-14.3) L 12/07/19 03:44 Hct 22.3 % (30.3-42.9) L 12/07/19 03:44 MCV 87 fl (79-97) 12/07/19 03:44 MCH 28 pg (28-32) 12/07/19 03:44 MCHC 32 % (30-34) 12/07/19 03:44 RDW 19.4 % (13.2-15.2) H 12/07/19 03:44 Plt Count 782 K/mm3 (140-440) H 12/07/19 03:44 Lymph % (Auto) 11.3 % (13.4-35.0) L 12/04/19 07:45 [place] % (Auto) 15.2 % (0.0-7.3) H 12/04/19 07:45 Eos % (Auto) 0.5 % (0.0-4.3) 12/04/19 07:45 Baso % (Auto) 0.6 % (0.0-1.8) 12/04/19 07:45 Lymph # 1.8 K/mm3 (1.2-5.4) 12/04/19 07:45 [place] # 2.4 K/mm3 (0.0-0.8) H 12/04/19 07:45 Eos # 0.1 K/mm3 (0.0-0.4) 12/04/19 07:45 Baso # 0.1 K/mm3 (0.0-0.1) 12/04/19 07:45 Add Manual Diff Complete 12/04/19 07:45 Total Counted 100 12/01/19 08:23 Seg Neutrophils % 72.4 % (40.0-70.0) H 12/04/19 07:45 Seg Neuts % (Manual) 91.0 % (40.0-70.0) H 12/01/19 08:23 Band Neutrophils % 0 % 12/01/19 08:23 Lymphocytes % (Manual) 3.0 % (13.4-35.0) L 12/01/19 08:23 Reactive Lymphs % (Man) 1.0 % 12/01/19 08:23 Monocytes % (Manual) 5.0 % (0.0-7.3) 12/01/19 08:23 Eosinophils % (Manual) 0 % (0.0-4.3) 12/01/19 08:23 Basophils % (Manual) 0 % (0.0-1.8) 12/01/19 08:23 Metamyelocytes % 0 % 12/01/19 08:23 Myelocytes % 0 % 12/01/19 08:23 Promyelocytes % 0 % 12/01/19 08:23 Blast Cells % 0 % 12/01/19 08:23 Nucleated RBC % Not Reportable 12/01/19 08:23 Seg Neutrophils # 11.5 K/mm3 (1.8-7.7) H 12/04/19 07:45 Seg Neutrophils # Man 20.7 K/mm3 (1.8-7.7) H 12/01/19 08:23 Band Neutrophils # 0.0 K/mm3 12/01/19 08:23 Lymphocytes # (Manual) 0.7 K/mm3 (1.2-5.4) L 12/01/19 08:23 Abs React Lymphs (Man) 0.2 K/mm3 12/01/19 08:23 Monocytes # (Manual) 1.1 K/mm3 (0.0-0.8) H 12/01/19 08:23 Eosinophils # (Manual) 0.0 K/mm3 (0.0-0.4) 12/01/19 08:23 Basophils # (Manual) 0.0 K/mm3 (0.0-0.1) 12/01/19 08:23 Metamyelocytes # 0.0 K/mm3 12/01/19 08:23 Myelocytes # 0.0 K/mm3 12/01/19 08:23 Promyelocytes # 0.0 K/mm3 12/01/19 08:23 Blast Cells # 0.0 K/mm3 12/01/19 08:23 WBC Morphology Not Reportable 12/01/19 08:23 Hypersegmented Neuts Not Reportable 12/01/19 08:23 Hyposegmented Neuts Not Reportable 12/01/19 08:23 Hypogranular Neuts Not Reportable 12/01/19 08:23 Smudge Cells Not Reportable 12/01/19 08:23 Toxic Granulation Not Reportable 12/01/19 08:23 Toxic Vacuolation Not Reportable 12/01/19 08:23 Dohle Bodies Not Reportable 12/01/19 08:23 Pelger-Huet Anomaly Not Reportable 12/01/19 08:23 Dominique Rods Not Reportable 12/01/19 08:23 Platelet Estimate Consistent w auto 12/01/19 08:23 Clumped Platelets Not Reportable 12/01/19 08:23 Plt Clumps, EDTA Not Reportable 12/01/19 08:23 Large Platelets Not Reportable 12/01/19 08:23 Giant Platelets Few 12/01/19 08:23 Platelet Satelliting Not Reportable 12/01/19 08:23 Plt Morphology Comment Not Reportable 12/01/19 08:23 RBC Morphology Not Reportable 12/01/19 08:23 Dimorphic RBCs Not Reportable 12/01/19 08:23 Polychromasia Few 12/01/19 08:23 Hypochromasia Few 12/01/19 08:23 Poikilocytosis Not Reportable 12/01/19 08:23 Anisocytosis Not Reportable 12/01/19 08:23 Microcytosis Not Reportable 12/01/19 08:23 Macrocytosis Not Reportable 12/01/19 08:23 Spherocytes Not Reportable 12/01/19 08:23 Pappenheimer Bodies Not Reportable 12/01/19 08:23 Sickle Cells Not Reportable 12/01/19 08:23 Target Cells 1+ 12/01/19 08:23 Tear Drop Cells Not Reportable 12/01/19 08:23 Ovalocytes Not Reportable 12/01/19 08:23 Helmet Cells Not Reportable 12/01/19 08:23 Frias-Colwell Bodies Not Reportable 12/01/19 08:23 Wentworth Rings Not Reportable 12/01/19 08:23 [place] Cells Not Reportable 12/01/19 08:23 Bite Cells Not Reportable 12/01/19 08:23 Crenated Cell Not Reportable 12/01/19 08:23 Elliptocytes Not Reportable 12/01/19 08:23 Acanthocytes (Spur) Not Reportable 12/01/19 08:23 Rouleaux Not Reportable 12/01/19 08:23 Hemoglobin C Crystals Not Reportable 12/01/19 08:23 Schistocytes Not Reportable 12/01/19 08:23 Malaria parasites Not Reportable 12/01/19 08:23 Gregg Bodies Not Reportable 12/01/19 08:23 Hem Pathologist Commnt No 12/01/19 08:23 PT 17.0 Sec. (12.2-14.9) H 11/23/19 03:47 INR 1.36 (0.87-1.13) H 11/23/19 03:47 APTT 128.2 Sec. (24.2-36.6) H* 11/23/19 03:47 Heparin Anti-Xa Level 0.31 U.I./ml (0.3-0.7) 11/23/19 09:03 ABG pH 7.437 pH Units (7.350-7.450) 12/03/19 20:00 ABG pCO2 50.7 mm Hg 12/03/19 20:00 ABG pO2 68.3 mm Hg (80.0-90.0) L 12/03/19 20:00 ABG HCO3 33.5 mmol/L (20.0-26.0) H 12/03/19 20:00 ABG O2 Saturation 93.5 % (95.0-99.0) L 12/03/19 20:00 ABG O2 Content 9.5 (0.0-44) 12/03/19 20:00 ABG Base Excess 8.4 mmol/L (-2.0-3.0) H 12/03/19 20:00 ABG Hemoglobin 7.3 gm/dl (12.0-16.0) L 12/03/19 20:00 ABG Carboxyhemoglobin 2.3 % (0.0-5.0) 12/03/19 20:00 ABG Methemoglobin 0.4 % (0.0-1.5) 12/03/19 20:00 Oxyhemoglobin 90.9 % (95.0-99.0) L 12/03/19 20:00 FiO2 30 % 12/03/19 20:00 Sodium 146 mmol/L (137-145) H 12/09/19 06:13 Potassium 4.0 mmol/L (3.6-5.0) 12/09/19 06:13 Chloride 101.1 mmol/L (98-107) 12/09/19 06:13 Carbon Dioxide 28 mmol/L (22-30) 12/09/19 06:13 Anion Gap 21 mmol/L 12/09/19 06:13 BUN 66 mg/dL (7-17) H 12/09/19 06:13 Creatinine 1.9 mg/dL (0.7-1.2) H 12/09/19 06:13 Estimated GFR 33 ml/min 12/09/19 06:13 BUN/Creatinine Ratio 35 % 12/09/19 06:13 Glucose 116 mg/dL (65-100) H 12/09/19 06:13 POC Glucose 132 (70-105) H 12/11/19 05:31 Lactic Acid 1.80 mmol/L (0.7-2.0) 11/25/19 05:05 Calcium 9.9 mg/dL (8.4-10.2) 12/09/19 06:13 Ionized Calcium 4.5 mg/dL (4.8-5.6) L 11/23/19 06:32 Phosphorus 4.20 mg/dL (2.5-4.5) D 11/28/19 08:59 Magnesium 2.30 mg/dL (1.7-2.3) 11/29/19 13:41 Total Bilirubin 0.60 mg/dL (0.1-1.2) 12/06/19 04:14 AST 89 units/L (5-40) H 12/06/19 04:14 ALT 98 units/L (7-56) H 12/06/19 04:14 Alkaline Phosphatase 476 units/L (35-129) H 12/06/19 04:14 Ammonia 42.0 umol/L (25-60) 11/29/19 13:41 Total Creatine Kinase 139 units/L (30-135) H 11/22/19 23:27 CK-MB (CK-2) 8.3 ng/mL (0.0-4.0) H 11/22/19 23:27 CK-MB (CK-2) Rel Index 5.9 (0-4) H 11/22/19 23:27 Troponin T < 0.010 ng/mL (0.00-0.029) 11/22/19 23:27 Total Protein 7.3 g/dL (6.3-8.2) 12/06/19 04:14 Albumin 2.8 g/dL (3.9-5) L 12/06/19 04:14 Albumin/Globulin Ratio 0.6 % 12/06/19 04:14 Lipase 18 units/L (13-60) 11/23/19 00:34 Procalcitonin 1.09 ng/mL (<0.15) 11/23/19 04:53 Urine Color Yellow (Yellow) 11/22/19 23:17 Urine Turbidity Cloudy (Clear) 11/22/19 23:17 Urine pH 6.0 (5.0-7.0) 11/22/19 23:17 Ur Specific [place] 1.010 (1.003-1.030) 11/22/19 23:17 Urine Protein >500 mg/dL (Negative) 11/22/19 23:17 Urine Glucose (UA) >=500 mg/dL (Negative) 11/22/19 23:17 Urine Ketones 20 mg/dL (Negative) 11/22/19 23:17 Urine Blood Mod (Negative) 11/22/19 23:17 Urine Nitrite Neg (Negative) 11/22/19 23:17 Urine Bilirubin Neg (Negative) 11/22/19 23:17 Urine Urobilinogen 4.0 mg/dL (<2.0) 11/22/19 23:17 Ur Leukocyte Esterase Neg (Negative) 11/22/19 23:17 Urine WBC (Auto) 40.0 /HPF (0.0-6.0) H 11/22/19 23:17 Urine RBC (Auto) 10.0 /HPF (0.0-6.0) 11/22/19 23:17 U Epithel Cells (Auto) 1.0 /HPF (0-13.0) 11/22/19 23:17 Urine Bacteria (Auto) 2+ /HPF (Negative) 11/22/19 23:17 Urine Mucus Few /HPF 11/22/19 23:17 Salicylates < 0.3 mg/dL (2.8-20.0) L 11/22/19 23:27 Urine Opiates Screen Presumptive negative 11/22/19 23:17 Urine Methadone Screen Presumptive negative 11/22/19 23:17 Acetaminophen < 5.0 ug/mL (10.0-30.0) L 11/22/19 23:27 Ur Barbiturates Screen Presumptive negative 11/22/19 23:17 Ur Phencyclidine Scrn Presumptive negative 11/22/19 23:17 Ur Amphetamines Screen Presumptive negative 11/22/19 23:17 U Benzodiazepines Scrn Presumptive negative 11/22/19 23:17 Urine Cocaine Screen Presumptive negative 11/22/19 23:17 U Marijuana (THC) Screen Presumptive negative 11/22/19 23:17 Drugs of Abuse Note Disclamer 11/22/19 23:17 Plasma/Serum Alcohol 0.08 % (0-0.07) H 11/22/19 23:27 Hepatitis A IgM Ab Non-reactive (NonReactive) 11/23/19 01:19 Hep Bs Antigen Non-reactive (Negative) 11/23/19 01:19 Hep B Core IgM Ab Non-reactive (NonReactive) 11/23/19 01:19 Hepatitis C Antibody Non-reactive (NonReactive) 11/23/19 01:19 - Diagnostic Impressions Diagnostic Impressions: Echocardiogram 11/23/19 03:58 Transthoracic Echocardiogram Indication: Cardiac arrest BP: 131/89 HR: 115 Conclusions *The study quality is technically difficult. *Global left ventricular wall motion and contractility are within normal limits. *The estimated ejection fraction is 55-60%. *Abnormal left ventricular diastolic filling is observed, consistent with impaired relaxation. *There is no pericardial effusion. Findings Procedure Info: The study quality is technically difficult. The study was technically limited due to the patient's inability to lay in the left lateral decubitus position. Left Ventricle: The left ventricular chamber size is normal. There is no left ventricular hypertrophy. Global left ventricular wall motion and contractility are within normal limits. Global left ventricular systolic function is normal. The estimated ejection fraction is 55-60%. Abnormal left ventricular diastolic filling is observed, consistent with impaired relaxation. Left Atrium: The left atrial chamber size is normal. Aortic Valve: The aortic valve leaflets are mildly thickened. Mitral Valve: The mitral valve leaflets are mildly thickened. There is no evidence of mitral regurgitation. Tricuspid Valve: The tricuspid valve leaflets are normal. There is trace tricuspid regurgitation. The right ventricular systolic pressure is calculated at 33 mmHg. Pulmonic Valve: The pulmonic valve appears normal. Pericardium: The pericardium appears normal. There is no pericardial effusion. Aorta: The aorta appears normal. Venous: The inferior vena cava appears normal in size. Measurements Chambers 2D Name Value Normal Range IVSd (2D) 0.94 cm (0.6 - 1.1) LVPWd (2D) 0.81 cm (0.6 - 1.1) LVIDd (2D) 3.6 cm (3.7 - 5.6) LVIDs (2D) 2.27 cm (2 - 3.8) LV FS (2D) 36.93 % - EF Teichholz (2D) 67.76 % - Ao root diameter (2D) 3.03 cm (2 - 3.7) Volumes/Mass Name Value Normal Range LA ESV SP 4CH (A/L) 16.89 ml - LA ESV SP 4CH (MOD) 15.52 ml - Diastolic/Systolic Function Name Value Normal Range MV E-wave Vmax 0.55 m/sec - MV deceleration time 200.89 msec - MV A-wave Vmax 0.68 m/sec - MV E:A ratio 0.82 ratio - Aortic Valve Name Value Normal Range AV Vmax 1.1 m/sec - AV VTI 15.9 cm - AV peak gradient 4.86 mmHg - AV mean gradient 2.59 mmHg - LVOT diameter 2 cm - LVOT Vmax 1.03 m/sec - LVOT VTI 15.87 cm - LVOT peak gradient 4.24 mmHg - LVOT mean gradient 2.41 mmHg - SV LVOT 49.77 ml - JOSÉ MIGUEL (continuity Vmax) 2.93 cm2 - JOSÉ MIGUEL (continuity VTI) 3.13 cm2 - Tricuspid Valve Name Value Normal Range TR Vmax 2.74 m/sec - TR peak gradient 303 mmHg - RAP 3 mmHg - RVSP 33 mmHg - IVC diameter 1.77 cm (1.2 - 2.3) Pulmonic Valve/Qp:Qs Name Value Normal Range PV Vmax 0.77 m/sec - PV peak gradient 2.4 mmHg - PV acceleration time 114.18 msec - Dela Cruz/IV: Voiding Method External Female Catheter IV Catheter Type [Right Wrist] Peripheral IV IV Catheter Type [Left Wrist] Peripheral IV IV Catheter Type [Left Peripheral IV Antecubital] IV Catheter Type [Right INT / Saline Lock Forearm] IV Catheter Type [Left Hand] Peripheral IV Active Medications - Current Medications Current Medications: Generic Name Dose Route Start Last Admin Trade Name Freq PRN Reason Stop Dose Admin Acetaminophen 650 mg 12/06/19 10:25 12/06/19 11:22 Tylenol FEEDTUBE 650 mg Q6H PRN Administration TEMP >/=100.3 Lipase/Protease/Amylase 1 each 11/23/19 11:[address] 10,500 Unit FEEDTUBE PRN PRN For Clogged Feeding Tube Chlordiazepoxide HCl 50 mg 12/04/19 14:00 12/10/19 21:23 Librium PO 50 mg Q8H LUCHO Administration Fentanyl 25 mcg 12/04/19 17:00 12/10/19 16:31 Duragesic TD 25 mcg Q3D LUCHO Administration Fentanyl 50 mcg 12/05/19 02:10 Sublimaze IV Q10MIN PRN ANALGESIA Heparin Sodium (Porcine) 5,000 unit 11/23/19 22:00 12/10/19 21:24 Heparin SUB-Q 5,000 unit Q12HR LUCHO Administration Hydralazine HCl 10 mg 11/24/19 00:45 12/09/19 22:26 Apresoline IV 10 mg Q6H PRN Administration SBP > 160 Hydrophilic Ointment 1 applic 03/05/20 23:23 Vaseline Lip Therapy TP Q2HR PRN Dry Lips Hydroxyzine Pamoate 25 mg 12/06/19 10:00 12/10/19 21:45 Vistaril PO 25 mg BID LUCHO Administration Lansoprazole 30 mg 11/27/19 10:00 12/10/19 09:52 Prevacid Solutab FEEDTUBE 30 mg QDAY LUCHO Administration Levetiracetam 500 mg 11/29/19 10:00 12/10/19 21:22 Keppra PO 500 mg BID LUCHO Administration Lorazepam 2 mg 11/26/19 11:09 12/08/19 08:02 Ativan IV 2 mg Q4H PRN Administration Agitation Metoclopramide HCl 5 mg 12/09/19 15:00 12/11/19 02:45 Reglan IV 5 mg Q6H LUCHO Administration Mirtazapine 30 mg 12/06/19 10:00 12/10/19 09:52 Remeron PO 30 mg DAILY LUCHO Administration Multi-Ingred Cream/Lotion/Oil/Oint 1 applic 11/22/19 23:23 Artificial Tears Ophth Oint OU Q4HR PRN Dry Eye(s) Ondansetron HCl 4 mg 12/10/19 07:53 12/10/19 09:51 Zofran IV 4 mg Q4H PRN Administration Nausea And Vomiting Quetiapine Fumarate 300 mg 12/07/19 22:00 12/10/19 21:23 Seroquel PO 300 mg QHS LUCHO Administration Senna/Docusate Sodium 2 tab 12/10/19 10:00 12/10/19 21:23 Senokot S PO 2 tab BID LUCHO Administration Sertraline HCl 25 mg 12/06/19 10:00 12/10/19 09:51 Zoloft PO 25 mg QDAY LUCHO Administration Simple Syrup 15 ml 11/23/19 11:50 Simple Syrup FEEDTUBE PRN PRN Hypoglycemia Simple Syrup 30 ml 11/23/19 11:50 Simple Syrup FEEDTUBE PRN PRN Hypoglycemia Sodium Bicarbonate 325 mg 11/23/19 11:50 Sodium Bicarbonate FEEDTUBE PRN PRN For Clogged Feeding Tube Nutrition/Malnutrition Assess - Dietary Evaluation Nutrition/Malnutrition Findings: Nutrition Notes Start: 11/23/19 11:29 Freq: Status: Active Protocol: Document 12/05/19 13:24 LM (Rec: 03/18/20 13:26 LM [email or web address]) Nutrition Notes Initial or Follow up Reassessment Current Diagnosis Hypertension Other Pertinent Diagnosis Cardaic arrest, ETOH dependence, UTI Current Diet Vital AF 1.2 at 50 ml/hr Labs/Tests 12/03 Na 140 Pertinent Medications Reviewed Height 5 ft 6 in Weight 54.8 kg [place] Body Weight (kg) 59.09 BMI 19.5 Subjective/Other Information Vital running at 50 ml/hr. pt tolerating. Percent of energy/protein needs met: 100%/100% Burn Absent Trauma Absent GI Symptoms None Current % PO Negligible Minimum of two criteria No Muscle Mass Mild Depletion (non-severe) #1 Nutrition Diagnosis Inadequate oral intake Diagnosis Progress(for reassessment Continues documentation) Is patient on ventilator? Yes Is Patient Ambulatory and/or Out of Bed No REE-([facility]-confined to bed) 1402.224 Calculation Used for Recommendations [facility] Additional Notes Protein: 66-110g (1.2-2g/kg) Fluid: 1 ml/kcal Nutrition Intervention Change Diet Order: TF Nutrition Support: Vital AF 1.2 at 50 ml/hr Flush 200 ml q4h for hypernatremia Flush 80 ml q4h once hypernatremia resolves Kcal 1,440 Protein (gm) 90 Fluid (mL) 973 Goal #1 TF tolerance Goal #2 Meet at least 80% of energy and protein needs via TF Anticipated Discharge Needs: unable to determine at this time Follow-Up By: 12/12/19 Additional Comments F/U for TF tolerance
[2019-12-11] MEDS: levETIRAcetam 500 MG/5 ML ORAL LIQD PO SCH ×2 (10:51→21:06)
[2019-12-11] MEDS: SENNOSIDES/DOCUSATE SODIUM 8.6/50 MG TAB PO SCH ×2 (10:51→21:06)
[2019-12-11] MEDS: LANSOPRAZOLE 30 MG SOLUTAB FEEDTUBE SCH (10:51)
[2019-12-11] MEDS: SERTRALINE 25 MG TAB PO SCH (10:51)
[2019-12-11] MEDS: MIRTAZAPINE 30 MG TAB PO SCH (10:52)
[2019-12-11] MEDS: hydrOXYzine PAMOATE 25 MG CAP PO SCH ×2 (10:52→21:06)
[2019-12-11] MEDS: HEPARIN 5,000 UNIT/1 ML VIAL SUB-Q SCH ×2 (10:52→21:06)
[2019-12-11] MEDS: LACTULOSE 20 GM/30 ML ORAL LIQD PO SCH ×2 (10:54→21:05)
--- NOTE | 2019-12-11 12:07 | Progress Note ---
Assessment and Plan 54-year-old female with ventilator dependent respiratory failure status post cardiac arrest Vent setting: PEEP 6, FIO2 30% Plan: Obs series reviewed - no obstruction 1. Continue TF as som, NPO p MN tonight 2. Vent management per ICU 3. DVT prophylaxis 4. Spoke with patient's mother today over the telephone. She understands that we need to proceed with tracheostomy and PEG tube placement as a next step in patient's management. She is concerned about the patient's disposition post trach/PEG. She is currently filing for disability on the patient's behalf and has had the application expedited. She states that she will give consent for procedure but may change her mind. I have given her the number for my office to call between now and tomorrow to inform me if she has any other questions or does not want to proceed. 5. All risks, benefits, alternatives to tracheostomy and PEG tube placement discussed with the patient's mother and questions answered. Consent obtained. Patient is scheduled for bedside trach/PEG tomorrow 12/12/2019 at 1330. Preop orders placed. Discussed with patient's RN Lesa. Thank you, please call with questions. Subjective Date of service: 12/11/19 Narrative: Pt seen and examined. No overnight events noted. No change in condition Objective Vital Signs - 12hr 12/11/19 12/11/19 12/11/19 00:00 00:19 01:00 Temperature Pulse Rate 105 H 105 H 105 H Pulse Rate [ From Monitor] Pulse Rate [ Right Dorsalis Pedis] Respiratory 16 16 Rate Blood Pressure 125/77 125/77 112/67 O2 Sat by Pulse 99 99 97 Oximetry 12/11/19 12/11/19 12/11/19 02:00 03:00 03:36 Temperature 99 F Pulse Rate 100 H 91 H Pulse Rate [ From Monitor] Pulse Rate [ Right Dorsalis Pedis] Respiratory 16 16 Rate Blood Pressure 120/77 118/78 O2 Sat by Pulse 96 Oximetry 12/11/19 12/11/19 12/11/19 03:52 03:54 04:00 Temperature Pulse Rate 103 H 92 H Pulse Rate [ 103 H From Monitor] Pulse Rate [ 103 H Right Dorsalis Pedis] Respiratory 33 H 16 Rate Blood Pressure 137/86 O2 Sat by Pulse 100 100 Oximetry 12/11/19 12/11/19 12/11/19 05:00 06:00 07:00 Temperature Pulse Rate 103 H 99 H 100 H Pulse Rate [ From Monitor] Pulse Rate [ Right Dorsalis Pedis] Respiratory 18 17 18 Rate Blood Pressure 133/84 137/82 142/85 O2 Sat by Pulse 98 100 Oximetry 12/11/19 12/11/19 12/11/19 08:00 09:00 10:00 Temperature 99.1 F Pulse Rate 99 H 105 H 104 H Pulse Rate [ From Monitor] Pulse Rate [ Right Dorsalis Pedis] Respiratory 17 18 18 Rate Blood Pressure 131/78 134/80 150/84 O2 Sat by Pulse 97 99 Oximetry 12/11/19 11:00 Temperature Pulse Rate 104 H Pulse Rate [ From Monitor] Pulse Rate [ Right Dorsalis Pedis] Respiratory 17 Rate Blood Pressure 147/87 O2 Sat by Pulse 99 Oximetry - General physical appearance Narrative Exam: Gen: Intubated. NAD ENT: ETT and OGT in place. TF running CV: S1, S2+ resp: no wheezes. Abd: soft, NT, moderately distended. Ext: no c/c/e - Labs 12/07/19 03:44 12/09/19 06:13
[2019-12-11] MEDS ORDERED: WATER FOR IRRIG STERILE 1,000 ML BOTTLE ONE (12:39)
[2019-12-11] MEDS ORDERED: WATER FOR IRRIG STERILE 250 ML BOTTLE IR ONE (12:39)
--- NOTE | 2019-12-11 12:39 | Progress Note ---
Assessment and Plan Acute cardiopulmonary arrest with ROSC Acute hypoxemic respiratory failure on MVS Acute tfeirlynd-fgenu-ucllsn encephalopathy Metabolic acidosis/alcoholic acidosis/Lactic acidosis( resolved) Ischemic hepatitis Leucocytosis - persistent Erythrocytosis Tobacco use disorder Alcohol use Disorder -Discussed with RT, the need for daily SBT-continue the same while monitoring response -Continue to monitor off antibiotics -Persistent leukocytosis but is on steroids, currently weaning -KUB for abdominal distension -Stop am Seroquel, continue Seroquel 300mg qhs-will adjust dosing based on her mental status -Pending tracheostomy and PEG placement -Continue all care as documented below. -Continue with MVS, Lung protective strategies, monitor airway pressures -VAP bundle addressed -Continue aspiration precautions, HOB>40 -Continue daily assessment for readiness for SBT -Continue Stress ulcer prophylaxis -Continue enteric nutritional support at goal rate. Monitor glycemic control, with target blood glucose 140-180 mg/dL while critically ill. -Avoid hypoglycemia - Continue to wean supplemental oxygen for target O2 sat's > 90% -ABG and CXR prn -Continue to trend leukocytosis -Continue to treat for hepatic encephalopathy-bowel regimen, no need to trend ammonia levels -Continue thiamine, multivitamin and electrolyte replacement -Continue to avoid nephrotoxins, adjust all medications for GFR and CrCL - Continue bronchodilators with pulmonary hygiene - Continue prn analgesia per CPOT score - Continue to maintain of sleep-wake cycle, avoid delirium - PT/OT/ROM exercises - Continue mobility protocol and skin assessment per protocol for pressure ulcer prevention - Continue to monitor for clinical seizures - continue other care per attending / other consultants Discussed with her mother- who is her POA ( ) She had questions about the tracheostomy and PEG - her granddaughter apparently was called about the PEG/Trach . She had questions about sedation. She says that her grand-daughter states that her mother had fecal incontinence prior to her acute illness Ms Jesus states she wants to think about the tracheostomy and PEG She also wants to know is Ms Yi Jesus's son who is incarcerated can visit, especially with the current lockdown in the ICU. I will ask CM/SW to reach out to her to address the issues. I have updated her on all her daughter's medical issues CONDITION: CRITICAL PROGNOSIS: GUARDED CODE STATUS: FULL CODE The high probability of a clinically significant, sudden or life-threatening deterioration of the [respiratory, cardiovascular,GI/hepatology/Neurology] system(s) required my full and direct attention, intervention and personal management. The aggregate critical care time was [31] minutes without overlap. Time includes spent on; [x] Data Review and interpretation [x] Patient assessment and monitoring of vital signs [x] Documentation [x] Medication orders and management Subjective Date of service: 12/11/19 Principal diagnosis: Ac cardiopulmonary arrest; Ac hypoxemic resp failure; Acute encephalopathy Interval history: Patient is seen today for: Acute cardiopulmonary arrest with ROSC; Acute hypoxemic respiratory failure; Acute metabolic-toxic encephalopathy; Ischemic hepatitis; Leucocytosis with lactic acidosis; Tobacco use disorder; Alcohol use Disorder; High grade fevers Seen and examined at bedside; 24hour events reviewed; nursing and respiratory care staff consulted; no adverse overnight events reported to me; resting peacefully in bed; no fevers, remains orally intubated and on MVS. Appears to be a little more awake, not obeying commands, takes a while to open her eyes to verbal command, and even then barely. Being evaluated for trach and PEG Objective Vital Signs - 12hr 12/11/19 12/11/19 12/11/19 01:00 02:00 03:00 Temperature Pulse Rate 105 H 100 H 91 H Pulse Rate [ From Monitor] Pulse Rate [ Right Dorsalis Pedis] Respiratory 16 16 16 Rate Blood Pressure 112/67 120/77 118/78 O2 Sat by Pulse 97 96 Oximetry 12/11/19 12/11/19 12/11/19 03:36 03:52 03:54 Temperature 99 F Pulse Rate 103 H Pulse Rate [ 103 H From Monitor] Pulse Rate [ 103 H Right Dorsalis Pedis] Respiratory 33 H Rate Blood Pressure O2 Sat by Pulse 100 Oximetry 12/11/19 12/11/19 12/11/19 04:00 05:00 06:00 Temperature Pulse Rate 92 H 103 H 99 H Pulse Rate [ From Monitor] Pulse Rate [ Right Dorsalis Pedis] Respiratory 16 18 17 Rate Blood Pressure 137/86 133/84 137/82 O2 Sat by Pulse 100 98 Oximetry 12/11/19 12/11/19 12/11/19 07:00 08:00 09:00 Temperature 99.1 F Pulse Rate 100 H 99 H 105 H Pulse Rate [ From Monitor] Pulse Rate [ Right Dorsalis Pedis] Respiratory 18 17 18 Rate Blood Pressure 142/85 131/78 134/80 O2 Sat by Pulse 100 97 Oximetry 12/11/19 12/11/19 10:00 11:00 Temperature Pulse Rate 104 H 104 H Pulse Rate [ From Monitor] Pulse Rate [ Right Dorsalis Pedis] Respiratory 18 17 Rate Blood Pressure 150/84 147/87 O2 Sat by Pulse 99 99 Oximetry Constitutional: no acute distress, other (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, orally intuabted ETT at 23 cm at the lip to mVS, mild dys-synchrony) Eyes: non-icteric ENT: oropharynx moist, other (ETT 23 cm AMALIA) Neck: supple, no lymphadenopathy, no JVD Effort: mildly labored Ascultation: Bilateral: diminished breath sounds, rhonchi Percussion: Bilateral: not dull Cardiovascular: regular rate and rhythm (tachycardia), other (S1,S2) Gastrointestinal: normoactive bowel sounds, soft, non-tender, non-distended Integumentary: normal Extremities: no cyanosis, no edema, pulses normal, no ischemia or petechiae Neurologic: unable to assess, other (awake but not tracking voice ) Psychiatric: other (Psychiatric: Unable to assess) CBC and BMP: 12/18/19 04:53 12/18/19 04:53 ABG, PT/INR, D-dimer: ABG ABG pH 7.437 pH Units (7.350-7.450) 12/03/19 20:00 ABG pCO2 50.7 mm Hg 12/03/19 20:00 ABG pO2 68.3 mm Hg (80.0-90.0) L 12/03/19 20:00 ABG O2 Saturation 93.5 % (95.0-99.0) L 12/03/19 20:00 PT/INR, D-dimer PT 17.0 Sec. (12.2-14.9) H 11/23/19 03:47 INR 1.36 (0.87-1.13) H 11/23/19 03:47 Abnormal lab findings: Abnormal Labs 11/22/19 11/22/19 11/22/19 23:17 23:18 23:27 WBC 21.2 H RBC 3.59 L Hgb 9.8 L Hct MCH 27 L RDW 18.6 H Plt Count 454 H Lymph % (Auto) Phelps % (Auto) Phelps # Seg Neutrophils % Seg Neuts % (Manual) 86.0 H Lymphocytes % (Manual) 9.0 L Seg Neutrophils # Seg Neutrophils # Man 18.2 H Lymphocytes # (Manual) Monocytes # (Manual) 1.1 H PT INR APTT ABG pH ABG pO2 ABG HCO3 ABG O2 Saturation ABG Base Excess ABG Hemoglobin Oxyhemoglobin Sodium Potassium Chloride Carbon Dioxide BUN Creatinine Glucose POC Glucose 53 L Lactic Acid Calcium Ionized Calcium Phosphorus Magnesium Total Bilirubin AST ALT Alkaline Phosphatase Ammonia Total Creatine Kinase CK-MB (CK-2) CK-MB (CK-2) Rel Index Total Protein Albumin Urine WBC (Auto) 40.0 H Salicylates Acetaminophen Plasma/Serum Alcohol 11/22/19 11/22/19 11/22/19 23:27 23:27 23:27 WBC RBC Hgb Hct MCH RDW Plt Count Lymph % (Auto) Phelps % (Auto) Phelps # Seg Neutrophils % Seg Neuts % (Manual) Lymphocytes % (Manual) Seg Neutrophils # Seg Neutrophils # Man Lymphocytes # (Manual) Monocytes # (Manual) PT INR APTT ABG pH ABG pO2 ABG HCO3 ABG O2 Saturation ABG Base Excess ABG Hemoglobin Oxyhemoglobin Sodium Potassium 2.4 L* Chloride 85.1 L Carbon Dioxide 19 L BUN Creatinine 0.5 L Glucose 261 H POC Glucose Lactic Acid Calcium Ionized Calcium Phosphorus Magnesium Total Bilirubin AST 609 H ALT 152 H Alkaline Phosphatase 160 H Ammonia 117.0 H Total Creatine Kinase 139 H CK-MB (CK-2) 8.3 H CK-MB (CK-2) Rel Index 5.9 H Total Protein Albumin 3.6 L Urine WBC (Auto) Salicylates < 0.3 L Acetaminophen Plasma/Serum Alcohol 11/22/19 11/22/19 11/23/19 23:27 23:27 01:10 WBC RBC Hgb Hct MCH RDW Plt Count Lymph % (Auto) Phelps % (Auto) Phelps # Seg Neutrophils % Seg Neuts % (Manual) Lymphocytes % (Manual) Seg Neutrophils # Seg Neutrophils # Man Lymphocytes # (Manual) Monocytes # (Manual) PT INR APTT ABG pH 7.273 L ABG pO2 209.7 H ABG HCO3 ABG O2 Saturation 99.2 H ABG Base Excess -3.9 L ABG Hemoglobin 10.6 L Oxyhemoglobin 93.9 L Sodium Potassium Chloride Carbon Dioxide BUN Creatinine Glucose POC Glucose Lactic Acid Calcium Ionized Calcium Phosphorus Magnesium Total Bilirubin AST ALT Alkaline Phosphatase Ammonia Total Creatine Kinase CK-MB (CK-2) CK-MB (CK-2) Rel Index Total Protein Albumin Urine WBC (Auto) Salicylates Acetaminophen < 5.0 L Plasma/Serum Alcohol 0.08 H 11/23/19 11/23/19 11/23/19 01:19 01:19 03:47 WBC RBC Hgb Hct MCH RDW Plt Count Lymph % (Auto) [place]helps % (Auto) P[place]ps # Seg Neutrophils % Seg Neuts % (Manual) Lymphocytes % (Manual) Seg Neutrophils # Seg Neutrophils # Man Lymphocytes # (Manual) Monocytes # (Manual) PT 16.3 H INR 1.29 H APTT ABG pH ABG pO2 ABG HCO3 ABG O2 Saturation ABG Base Excess ABG Hemoglobin Oxyhemoglobin Sodium Potassium Chloride Carbon Dioxide BUN Creatinine Glucose POC Glucose Lactic Acid 2.10 H* 5.00 H* Calcium Ionized Calcium Phosphorus Magnesium Total Bilirubin AST ALT Alkaline Phosphatase Ammonia Total Creatine Kinase CK-MB (CK-2) CK-MB (CK-2) Rel Index Total Protein Albumin Urine WBC (Auto) Salicylates Acetaminophen Plasma/Serum Alcohol 11/23/19 11/23/19 11/23/19 03:47 03:47 04:53 WBC RBC Hgb 9.4 L Hct MCH RDW Plt Count Lymph % (Auto) [place] % (Auto) Phelps # Seg Neutrophils % Seg Neuts % (Manual) Lymphocytes % (Manual) Seg Neutrophils # Seg Neutrophils # Man Lymphocytes # (Manual) Monocytes # (Manual) PT 17.0 H INR 1.36 H APTT 128.2 H* ABG pH ABG pO2 ABG HCO3 ABG O2 Saturation ABG Base Excess ABG Hemoglobin Oxyhemoglobin Sodium Potassium Chloride Carbon Dioxide 18 L BUN Creatinine 0.5 L Glucose 105 H POC Glucose Lactic Acid Calcium 8.3 L Ionized Calcium Phosphorus 2.40 L Magnesium Total Bilirubin 1.30 H AST 761 H ALT 158 H Alkaline Phosphatase 143 H Ammonia Total Creatine Kinase CK-MB (CK-2) CK-MB (CK-2) Rel Index Total Protein Albumin 2.8 L Urine WBC (Auto) Salicylates Acetaminophen Plasma/Serum Alcohol 11/23/19 11/23/19 11/23/19 05:12 06:32 06:32 WBC 16.8 H RBC 3.31 L Hgb 8.9 L Hct 28.7 L MCH 27 L RDW 18.6 H Plt Count Lymph % (Auto) [place] % (Auto) P[place] # Seg Neutrophils % Seg Neuts % (Manual) 94.0 H Lymphocytes % (Manual) 1.0 L Seg Neutrophils # Seg Neutrophils # Man 15.8 H Lymphocytes # (Manual) 0.2 L Monocytes # (Manual) PT INR APTT ABG pH ABG pO2 ABG HCO3 ABG O2 Saturation ABG Base Excess -3.2 L ABG Hemoglobin 9.0 L Oxyhemoglobin 93.6 L Sodium Potassium Chloride Carbon Dioxide BUN Creatinine Glucose POC Glucose Lactic Acid Calcium Ionized Calcium 4.5 L Phosphorus Magnesium Total Bilirubin AST ALT Alkaline Phosphatase Ammonia Total Creatine Kinase CK-MB (CK-2) CK-MB (CK-2) Rel Index Total Protein Albumin Urine WBC (Auto) Salicylates Acetaminophen Plasma/Serum Alcohol 11/23/19 11/24/19 11/24/19 06:32 04:35 04:35 WBC RBC Hgb Hct MCH RDW Plt Count Lymph % (Auto) [place] % (Auto) P[place]ps # Seg Neutrophils % Seg Neuts % (Manual) Lymphocytes % (Manual) Seg Neutrophils # Seg Neutrophils # Man Lymphocytes # (Manual) Monocytes # (Manual) PT INR APTT ABG pH ABG pO2 ABG HCO3 ABG O2 Saturation ABG Base Excess ABG Hemoglobin Oxyhemoglobin Sodium Potassium Chloride Carbon Dioxide BUN Creatinine Glucose POC Glucose Lactic Acid 3.30 H* Calcium Ionized Calcium Phosphorus Magnesium 1.40 L Total Bilirubin AST ALT Alkaline Phosphatase Ammonia 98.0 H Total Creatine Kinase CK-MB (CK-2) CK-MB (CK-2) Rel Index Total Protein Albumin Urine WBC (Auto) Salicylates Acetaminophen Plasma/Serum Alcohol 11/24/19 11/25/19 11/25/19 05:22 04:34 05:05 WBC 17.3 H RBC 2.88 L Hgb 7.8 L Hct 24.6 L MCH 27 L RDW 18.5 H Plt Count Lymph % (Auto) 7.7 L Phelps % (Auto) 9.7 H Phelps # 1.7 H Seg Neutrophils % 82.2 H Seg Neuts % (Manual) Lymphocytes % (Manual) Seg Neutrophils # 14.2 H Seg Neutrophils # Man Lymphocytes # (Manual) Monocytes # (Manual) PT INR APTT ABG pH 7.475 H ABG pO2 ABG HCO3 29.4 H 32.3 H ABG O2 Saturation ABG Base Excess 5.4 H 6.9 H ABG Hemoglobin 9.0 L 10.6 L Oxyhemoglobin 94.3 L Sodium Potassium Chloride Carbon Dioxide BUN Creatinine Glucose POC Glucose Lactic Acid Calcium Ionized Calcium Phosphorus Magnesium Total Bilirubin AST ALT Alkaline Phosphatase Ammonia Total Creatine Kinase CK-MB (CK-2) CK-MB (CK-2) Rel Index Total Protein Albumin Urine WBC (Auto) Salicylates Acetaminophen Plasma/Serum Alcohol 11/25/19 11/25/19 11/26/19 05:05 22:46 03:31 WBC RBC Hgb Hct MCH RDW Plt Count Lymph % (Auto) [place]hel[place] % (Auto) P[place] # Seg Neutrophils % Seg Neuts % (Manual) Lymphocytes % (Manual) Seg Neutrophils # Seg Neutrophils # Man Lymphocytes # (Manual) Monocytes # (Manual) PT INR APTT ABG pH 7.459 H ABG pO2 ABG HCO3 34.2 H ABG O2 Saturation ABG Base Excess 9.4 H ABG Hemoglobin 7.6 L Oxyhemoglobin 94.8 L Sodium 152 H D 147 H Potassium 2.3 L* D 2.8 L* D Chloride 107.8 H Carbon Dioxide 31 H D 33 H BUN Creatinine 0.6 L 0.6 L Glucose 148 H 177 H POC Glucose Lactic Acid Calcium Ionized Calcium Phosphorus Magnesium Total Bilirubin AST 105 H ALT 71 H Alkaline Phosphatase 155 H Ammonia Total Creatine Kinase CK-MB (CK-2) CK-MB (CK-2) Rel Index Total Protein 5.2 L D Albumin 2.9 L Urine WBC (Auto) Salicylates Acetaminophen Plasma/Serum Alcohol 11/26/19 11/26/19 11/27/19 08:24 08:24 04:20 WBC 12.0 H RBC 3.00 L Hgb 8.0 L 9.3 L Hct 25.9 L 29.7 L MCH 27 L RDW 18.5 H Plt Count Lymph % (Auto) [place] % (Auto) P[place] # Seg Neutrophils % Seg Neuts % (Manual) 89.0 H Lymphocytes % (Manual) 4.0 L Seg Neutrophils # Seg Neutrophils # Man 10.7 H Lymphocytes # (Manual) 0.5 L Monocytes # (Manual) PT INR APTT ABG pH ABG pO2 ABG HCO3 ABG O2 Saturation ABG Base Excess ABG Hemoglobin Oxyhemoglobin Sodium 146 H Potassium 3.4 L D Chloride Carbon Dioxide BUN Creatinine 0.5 L Glucose 165 H POC Glucose Lactic Acid Calcium Ionized Calcium Phosphorus Magnesium Total Bilirubin AST 57 H ALT Alkaline Phosphatase 166 H Ammonia Total Creatine Kinase CK-MB (CK-2) CK-MB (CK-2) Rel Index Total Protein Albumin 2.9 L Urine WBC (Auto) Salicylates Acetaminophen Plasma/Serum Alcohol 11/27/19 11/27/19 11/27/19 04:28 04:28 04:42 WBC RBC Hgb Hct MCH RDW Plt Count Lymph % (Auto) [place]hel[place] % (Auto) P[place] # Seg Neutrophils % Seg Neuts % (Manual) Lymphocytes % (Manual) Seg Neutrophils # Seg Neutrophils # Man Lymphocytes # (Manual) Monocytes # (Manual) PT INR APTT ABG pH 7.470 H ABG pO2 74.0 L ABG HCO3 33.8 H ABG O2 Saturation ABG Base Excess 9.1 H ABG Hemoglobin 8.7 L Oxyhemoglobin 94.7 L Sodium 146 H Potassium 2.9 L* Chloride Carbon Dioxide BUN 25 H Creatinine Glucose 213 H POC Glucose Lactic Acid Calcium Ionized Calcium Phosphorus 1.00 L Magnesium Total Bilirubin AST ALT Alkaline Phosphatase Ammonia Total Creatine Kinase CK-MB (CK-2) CK-MB (CK-2) Rel Index Total Protein Albumin Urine WBC (Auto) Salicylates Acetaminophen Plasma/Serum Alcohol 11/27/19 11/27/19 11/27/19 05:37 12:20 15:46 WBC RBC Hgb Hct MCH RDW Plt Count Lymph % (Auto) [place] % (Auto) [place] # Seg Neutrophils % Seg Neuts % (Manual) Lymphocytes % (Manual) Seg Neutrophils # Seg Neutrophils # Man Lymphocytes # (Manual) Monocytes # (Manual) PT INR APTT ABG pH ABG pO2 ABG HCO3 ABG O2 Saturation ABG Base Excess ABG Hemoglobin Oxyhemoglobin Sodium 146 H Potassium 3.5 L D Chloride Carbon Dioxide BUN 24 H Creatinine 0.6 L Glucose 187 H POC Glucose 117 H 220 H Lactic Acid Calcium Ionized Calcium Phosphorus Magnesium Total Bilirubin AST ALT Alkaline Phosphatase Ammonia Total Creatine Kinase CK-MB (CK-2) CK-MB (CK-2) Rel Index Total Protein Albumin Urine WBC (Auto) Salicylates Acetaminophen Plasma/Serum Alcohol 11/27/19 11/28/19 11/28/19 17:28 05:00 05:02 WBC RBC Hgb Hct MCH RDW Plt Count Lymph % (Auto) [place]hel[place] % (Auto) [place] # Seg Neutrophils % Seg Neuts % (Manual) Lymphocytes % (Manual) Seg Neutrophils # Seg Neutrophils # Man Lymphocytes # (Manual) Monocytes # (Manual) PT INR APTT ABG pH ABG pO2 72.4 L ABG HCO3 33.6 H ABG O2 Saturation 94.1 L ABG Base Excess 7.3 H ABG Hemoglobin Oxyhemoglobin 91.8 L Sodium 146 H Potassium 3.3 L Chloride Carbon Dioxide BUN 25 H Creatinine 0.6 L Glucose 176 H POC Glucose 198 H Lactic Acid Calcium Ionized Calcium Phosphorus Magnesium Total Bilirubin AST ALT Alkaline Phosphatase Ammonia Total Creatine Kinase CK-MB (CK-2) CK-MB (CK-2) Rel Index Total Protein Albumin Urine WBC (Auto) Salicylates Acetaminophen Plasma/Serum Alcohol 11/28/19 11/28/19 11/29/19 05:02 18:55 10:43 WBC 15.2 H 19.0 H RBC 3.06 L 3.01 L Hgb 8.3 L 8.3 L Hct 27.0 L 26.4 L MCH 27 L RDW 19.0 H 19.7 H Plt Count 479 H 611 H Lymph % (Auto) [place] % (Auto) [place] # Seg Neutrophils % Seg Neuts % (Manual) 92.0 H Lymphocytes % (Manual) 2.0 L Seg Neutrophils # Seg Neutrophils # Man 14.0 H Lymphocytes # (Manual) 0.3 L Monocytes # (Manual) PT INR APTT ABG pH ABG pO2 ABG HCO3 ABG O2 Saturation ABG Base Excess ABG Hemoglobin Oxyhemoglobin Sodium Potassium Chloride Carbon Dioxide BUN Creatinine Glucose POC Glucose 138 H Lactic Acid Calcium Ionized Calcium Phosphorus Magnesium Total Bilirubin AST ALT Alkaline Phosphatase Ammonia Total Creatine Kinase CK-MB (CK-2) CK-MB (CK-2) Rel Index Total Protein Albumin Urine WBC (Auto) Salicylates Acetaminophen Plasma/Serum Alcohol 11/29/19 11/29/19 11/29/19 10:43 12:27 19:25 WBC RBC Hgb Hct MCH RDW Plt Count Lymph % (Auto) [place] % (Auto) [place] # Seg Neutrophils % Seg Neuts % (Manual) Lymphocytes % (Manual) Seg Neutrophils # Seg Neutrophils # Man Lymphocytes # (Manual) Monocytes # (Manual) PT INR APTT ABG pH ABG pO2 ABG HCO3 ABG O2 Saturation ABG Base Excess ABG Hemoglobin Oxyhemoglobin Sodium Potassium 2.8 L* Chloride Carbon Dioxide BUN 20 H Creatinine 0.5 L Glucose 121 H POC Glucose 128 H 120 H Lactic Acid Calcium Ionized Calcium Phosphorus Magnesium Total Bilirubin AST ALT Alkaline Phosphatase Ammonia Total Creatine Kinase CK-MB (CK-2) CK-MB (CK-2) Rel Index Total Protein Albumin Urine WBC (Auto) Salicylates Acetaminophen Plasma/Serum Alcohol 11/29/19 11/30/19 11/30/19 23:46 04:10 05:02 WBC RBC Hgb Hct MCH RDW Plt Count Lymph % (Auto) [place] % (Auto) [place] # Seg Neutrophils % Seg Neuts % (Manual) Lymphocytes % (Manual) Seg Neutrophils # Seg Neutrophils # Man Lymphocytes # (Manual) Monocytes # (Manual) PT INR APTT ABG pH ABG pO2 76.3 L ABG HCO3 32.5 H ABG O2 Saturation ABG Base Excess 6.9 H ABG Hemoglobin 8.0 L Oxyhemoglobin 92.6 L Sodium Potassium Chloride Carbon Dioxide BUN Creatinine Glucose POC Glucose 116 H 128 H Lactic Acid Calcium Ionized Calcium Phosphorus Magnesium Total Bilirubin AST ALT Alkaline Phosphatase Ammonia Total Creatine Kinase CK-MB (CK-2) CK-MB (CK-2) Rel Index Total Protein Albumin Urine WBC (Auto) Salicylates Acetaminophen Plasma/Serum Alcohol 11/30/19 11/30/19 11/30/19 05:25 05:25 12:59 WBC 18.4 H RBC 3.10 L Hgb 8.5 L Hct 27.5 L MCH 27 L RDW 20.9 H Plt Count 691 H Lymph % (Auto) 7.1 L [place] % (Auto) 7.7 H Phelps # 1.4 H Seg Neutrophils % 83.4 H Seg Neuts % (Manual) Lymphocytes % (Manual) Seg Neutrophils # 15.4 H Seg Neutrophils # Man Lymphocytes # (Manual) Monocytes # (Manual) PT INR APTT ABG pH ABG pO2 ABG HCO3 ABG O2 Saturation ABG Base Excess ABG Hemoglobin Oxyhemoglobin Sodium 146 H Potassium Chloride 107.2 H Carbon Dioxide BUN Creatinine 0.5 L Glucose 132 H POC Glucose 124 H Lactic Acid Calcium Ionized Calcium Phosphorus Magnesium Total Bilirubin AST 246 H ALT 274 H Alkaline Phosphatase 203 H Ammonia Total Creatine Kinase CK-MB (CK-2) CK-MB (CK-2) Rel Index Total Protein 5.4 L Albumin 2.9 L Urine WBC (Auto) Salicylates Acetaminophen Plasma/Serum Alcohol 11/30/19 12/01/19 12/01/19 17:53 00:05 05:10 WBC RBC Hgb Hct MCH RDW Plt Count Lymph % (Auto) [place] % (Auto) [place] # Seg Neutrophils % Seg Neuts % (Manual) Lymphocytes % (Manual) Seg Neutrophils # Seg Neutrophils # Man Lymphocytes # (Manual) Monocytes # (Manual) PT INR APTT ABG pH ABG pO2 ABG HCO3 ABG O2 Saturation ABG Base Excess ABG Hemoglobin Oxyhemoglobin Sodium Potassium Chloride Carbon Dioxide BUN Creatinine Glucose POC Glucose 113 H 143 H 145 H Lactic Acid Calcium Ionized Calcium Phosphorus Magnesium Total Bilirubin AST ALT Alkaline Phosphatase Ammonia Total Creatine Kinase CK-MB (CK-2) CK-MB (CK-2) Rel Index Total Protein Albumin Urine WBC (Auto) Salicylates Acetaminophen Plasma/Serum Alcohol 12/01/19 12/01/19 12/01/19 05:33 08:23 08:23 WBC 22.7 H RBC 2.88 L Hgb 7.9 L Hct 25.2 L MCH 27 L RDW 21.0 H Plt Count 732 H Lymph % (Auto) [place] % (Auto) [place] # Seg Neutrophils % Seg Neuts % (Manual) 91.0 H Lymphocytes % (Manual) 3.0 L Seg Neutrophils # Seg Neutrophils # Man 20.7 H Lymphocytes # (Manual) 0.7 L Monocytes # (Manual) 1.1 H PT INR APTT ABG pH ABG pO2 68.6 L ABG HCO3 34.1 H ABG O2 Saturation ABG Base Excess 9.0 H ABG Hemoglobin 6.5 L Oxyhemoglobin 94.7 L Sodium Potassium Chloride Carbon Dioxide BUN Creatinine 0.5 L Glucose 125 H POC Glucose Lactic Acid Calcium Ionized Calcium Phosphorus Magnesium Total Bilirubin AST ALT Alkaline Phosphatase Ammonia Total Creatine Kinase CK-MB (CK-2) CK-MB (CK-2) Rel Index Total Protein Albumin Urine WBC (Auto) Salicylates Acetaminophen Plasma/Serum Alcohol 12/01/19 12/01/19 12/01/19 13:21 17:54 20:59 WBC RBC Hgb Hct MCH RDW Plt Count Lymph % (Auto) [place] % (Auto) [place] # Seg Neutrophils % Seg Neuts % (Manual) Lymphocytes % (Manual) Seg Neutrophils # Seg Neutrophils # Man Lymphocytes # (Manual) Monocytes # (Manual) PT INR APTT ABG pH ABG pO2 78.3 L ABG HCO3 33.8 H ABG O2 Saturation 94.9 L ABG Base Excess 7.9 H ABG Hemoglobin 11.5 L Oxyhemoglobin 92.3 L Sodium Potassium Chloride Carbon Dioxide BUN Creatinine Glucose POC Glucose 111 H 115 H Lactic Acid Calcium Ionized Calcium Phosphorus Magnesium Total Bilirubin AST ALT Alkaline Phosphatase Ammonia Total Creatine Kinase CK-MB (CK-2) CK-MB (CK-2) Rel Index Total Protein Albumin Urine WBC (Auto) Salicylates Acetaminophen Plasma/Serum Alcohol 12/02/19 12/03/19 12/04/19 12:55 20:00 04:26 WBC 15.2 H RBC 2.69 L Hgb 7.4 L Hct 23.6 L MCH 27 L RDW 19.9 H Plt Count 838 H Lymph % (Auto) [place] % (Auto) [place] # Seg Neutrophils % Seg Neuts % (Manual) Lymphocytes % (Manual) Seg Neutrophils # Seg Neutrophils # Man Lymphocytes # (Manual) Monocytes # (Manual) PT INR APTT ABG pH ABG pO2 68.3 L ABG HCO3 33.5 H ABG O2 Saturation 93.5 L ABG Base Excess 8.4 H ABG Hemoglobin 7.3 L Oxyhemoglobin 90.9 L Sodium Potassium Chloride Carbon Dioxide BUN Creatinine Glucose POC Glucose 107 H Lactic Acid Calcium Ionized Calcium Phosphorus Magnesium Total Bilirubin AST ALT Alkaline Phosphatase Ammonia Total Creatine Kinase CK-MB (CK-2) CK-MB (CK-2) Rel Index Total Protein Albumin Urine WBC (Auto) Salicylates Acetaminophen Plasma/Serum Alcohol 12/04/19 12/04/19 12/04/19 04:26 07:45 12:02 WBC 15.9 H RBC 2.88 L Hgb 7.9 L Hct 25.1 L MCH RDW 20.4 H Plt Count 839 H Lymph % (Auto) 11.3 L [place] % (Auto) 15.2 H Phelps # 2.4 H Seg Neutrophils % 72.4 H Seg Neuts % (Manual) Lymphocytes % (Manual) Seg Neutrophils # 11.5 H Seg Neutrophils # Man Lymphocytes # (Manual) Monocytes # (Manual) PT INR APTT ABG pH ABG pO2 ABG HCO3 ABG O2 Saturation ABG Base Excess ABG Hemoglobin Oxyhemoglobin Sodium Potassium Chloride 96.5 L Carbon Dioxide BUN 21 H Creatinine 0.6 L Glucose 107 H POC Glucose 138 H Lactic Acid Calcium Ionized Calcium Phosphorus Magnesium Total Bilirubin AST ALT Alkaline Phosphatase Ammonia Total Creatine Kinase CK-MB (CK-2) CK-MB (CK-2) Rel Index Total Protein Albumin Urine WBC (Auto) Salicylates Acetaminophen Plasma/Serum Alcohol 12/04/19 12/05/19 12/05/19 18:16 11:55 18:36 WBC RBC Hgb Hct MCH RDW Plt Count Lymph % (Auto) [place] % (Auto) [place] # Seg Neutrophils % Seg Neuts % (Manual) Lymphocytes % (Manual) Seg Neutrophils # Seg Neutrophils # Man Lymphocytes # (Manual) Monocytes # (Manual) PT INR APTT ABG pH ABG pO2 ABG HCO3 ABG O2 Saturation ABG Base Excess ABG Hemoglobin Oxyhemoglobin Sodium Potassium Chloride Carbon Dioxide BUN Creatinine Glucose POC Glucose 135 H 125 H 135 H Lactic Acid Calcium Ionized Calcium Phosphorus Magnesium Total Bilirubin AST ALT Alkaline Phosphatase Ammonia Total Creatine Kinase CK-MB (CK-2) CK-MB (CK-2) Rel Index Total Protein Albumin Urine WBC (Auto) Salicylates Acetaminophen Plasma/Serum Alcohol 12/05/19 12/06/19 12/06/19 23:30 04:14 05:43 WBC RBC Hgb Hct MCH RDW Plt Count Lymph % (Auto) [place] % (Auto) P[place] # Seg Neutrophils % Seg Neuts % (Manual) Lymphocytes % (Manual) Seg Neutrophils # Seg Neutrophils # Man Lymphocytes # (Manual) Monocytes # (Manual) PT INR APTT ABG pH ABG pO2 ABG HCO3 ABG O2 Saturation ABG Base Excess ABG Hemoglobin Oxyhemoglobin Sodium Potassium 5.6 H Chloride 95.0 L Carbon Dioxide BUN 48 H Creatinine 1.3 H D Glucose POC Glucose 126 H 121 H Lactic Acid Calcium Ionized Calcium Phosphorus Magnesium Total Bilirubin AST 89 H ALT 98 H Alkaline Phosphatase 476 H Ammonia Total Creatine Kinase CK-MB (CK-2) CK-MB (CK-2) Rel Index Total Protein Albumin 2.8 L Urine WBC (Auto) Salicylates Acetaminophen Plasma/Serum Alcohol 12/06/19 12/06/19 12/07/19 10:39 14:34 00:19 WBC 17.3 H RBC 2.60 L Hgb 7.1 L Hct 22.7 L MCH 27 L RDW 20.1 H Plt Count 832 H Lymph % (Auto) Phelps % (Auto) Phelps # Seg Neutrophils % Seg Neuts % (Manual) Lymphocytes % (Manual) Seg Neutrophils # Seg Neutrophils # Man Lymphocytes # (Manual) Monocytes # (Manual) PT INR APTT ABG pH ABG pO2 ABG HCO3 ABG O2 Saturation ABG Base Excess ABG Hemoglobin Oxyhemoglobin Sodium Potassium Chloride Carbon Dioxide BUN Creatinine Glucose POC Glucose 128 H 136 H Lactic Acid Calcium Ionized Calcium Phosphorus Magnesium Total Bilirubin AST ALT Alkaline Phosphatase Ammonia Total Creatine Kinase CK-MB (CK-2) CK-MB (CK-2) Rel Index Total Protein Albumin Urine WBC (Auto) Salicylates Acetaminophen Plasma/Serum Alcohol 12/07/19 12/07/19 12/07/19 03:44 03:44 05:53 WBC 16.2 H RBC 2.56 L Hgb 7.1 L Hct 22.3 L MCH RDW 19.4 H Plt Count 782 H Lymph % (Auto) [place] % (Auto) [place] # Seg Neutrophils % Seg Neuts % (Manual) Lymphocytes % (Manual) Seg Neutrophils # Seg Neutrophils # Man Lymphocytes # (Manual) Monocytes # (Manual) PT INR APTT ABG pH ABG pO2 ABG HCO3 ABG O2 Saturation ABG Base Excess ABG Hemoglobin Oxyhemoglobin Sodium Potassium Chloride 95.6 L Carbon Dioxide BUN 56 H Creatinine 1.4 H Glucose 120 H POC Glucose 128 H Lactic Acid Calcium 10.3 H Ionized Calcium Phosphorus Magnesium Total Bilirubin AST ALT Alkaline Phosphatase Ammonia Total Creatine Kinase CK-MB (CK-2) CK-MB (CK-2) Rel Index Total Protein Albumin Urine WBC (Auto) Salicylates Acetaminophen Plasma/Serum Alcohol 12/07/19 12/07/19 12/08/19 12:54 23:47 00:20 WBC RBC Hgb Hct MCH RDW Plt Count Lymph % (Auto) [place]hel[place] % (Auto) P[place]ps # Seg Neutrophils % Seg Neuts % (Manual) Lymphocytes % (Manual) Seg Neutrophils # Seg Neutrophils # Man Lymphocytes # (Manual) Monocytes # (Manual) PT INR APTT ABG pH ABG pO2 ABG HCO3 ABG O2 Saturation ABG Base Excess ABG Hemoglobin Oxyhemoglobin Sodium Potassium Chloride Carbon Dioxide BUN Creatinine Glucose POC Glucose 128 H 130 H 124 H Lactic Acid Calcium Ionized Calcium Phosphorus Magnesium Total Bilirubin AST ALT Alkaline Phosphatase Ammonia Total Creatine Kinase CK-MB (CK-2) CK-MB (CK-2) Rel Index Total Protein Albumin Urine WBC (Auto) Salicylates Acetaminophen Plasma/Serum Alcohol 12/08/19 12/08/19 12/08/19 06:38 12:04 18:26 WBC RBC Hgb Hct MCH RDW Plt Count Lymph % (Auto) [place] % (Auto) [place] # Seg Neutrophils % Seg Neuts % (Manual) Lymphocytes % (Manual) Seg Neutrophils # Seg Neutrophils # Man Lymphocytes # (Manual) Monocytes # (Manual) PT INR APTT ABG pH ABG pO2 ABG HCO3 ABG O2 Saturation ABG Base Excess ABG Hemoglobin Oxyhemoglobin Sodium Potassium Chloride Carbon Dioxide BUN Creatinine Glucose POC Glucose 137 H 129 H 150 H Lactic Acid Calcium Ionized Calcium Phosphorus Magnesium Total Bilirubin AST ALT Alkaline Phosphatase Ammonia Total Creatine Kinase CK-MB (CK-2) CK-MB (CK-2) Rel Index Total Protein Albumin Urine WBC (Auto) Salicylates Acetaminophen Plasma/Serum Alcohol 12/09/19 12/09/19 12/09/19 00:56 05:34 06:13 WBC RBC Hgb Hct MCH RDW Plt Count Lymph % (Auto) [place] % (Auto) [place] # Seg Neutrophils % Seg Neuts % (Manual) Lymphocytes % (Manual) Seg Neutrophils # Seg Neutrophils # Man Lymphocytes # (Manual) Monocytes # (Manual) PT INR APTT ABG pH ABG pO2 ABG HCO3 ABG O2 Saturation ABG Base Excess ABG Hemoglobin Oxyhemoglobin Sodium 146 H Potassium Chloride Carbon Dioxide BUN 66 H Creatinine 1.9 H Glucose 116 H POC Glucose 130 H 130 H Lactic Acid Calcium Ionized Calcium Phosphorus Magnesium Total Bilirubin AST ALT Alkaline Phosphatase Ammonia Total Creatine Kinase CK-MB (CK-2) CK-MB (CK-2) Rel Index Total Protein Albumin Urine WBC (Auto) Salicylates Acetaminophen Plasma/Serum Alcohol 12/09/19 12/09/19 12/10/19 11:52 17:50 00:14 WBC RBC Hgb Hct MCH RDW Plt Count Lymph % (Auto) [place] % (Auto) [place] # Seg Neutrophils % Seg Neuts % (Manual) Lymphocytes % (Manual) Seg Neutrophils # Seg Neutrophils # Man Lymphocytes # (Manual) Monocytes # (Manual) PT INR APTT ABG pH ABG pO2 ABG HCO3 ABG O2 Saturation ABG Base Excess ABG Hemoglobin Oxyhemoglobin Sodium Potassium Chloride Carbon Dioxide BUN Creatinine Glucose POC Glucose 135 H 120 H 116 H Lactic Acid Calcium Ionized Calcium Phosphorus Magnesium Total Bilirubin AST ALT Alkaline Phosphatase Ammonia Total Creatine Kinase CK-MB (CK-2) CK-MB (CK-2) Rel Index Total Protein Albumin Urine WBC (Auto) Salicylates Acetaminophen Plasma/Serum Alcohol 12/10/19 12/10/19 12/10/19 05:38 11:38 17:34 WBC RBC Hgb Hct MCH RDW Plt Count Lymph % (Auto) [place] % (Auto) [place] # Seg Neutrophils % Seg Neuts % (Manual) Lymphocytes % (Manual) Seg Neutrophils # Seg Neutrophils # Man Lymphocytes # (Manual) Monocytes # (Manual) PT INR APTT ABG pH ABG pO2 ABG HCO3 ABG O2 Saturation ABG Base Excess ABG Hemoglobin Oxyhemoglobin Sodium Potassium Chloride Carbon Dioxide BUN Creatinine Glucose POC Glucose 115 H 112 H 130 H Lactic Acid Calcium Ionized Calcium Phosphorus Magnesium Total Bilirubin AST ALT Alkaline Phosphatase Ammonia Total Creatine Kinase CK-MB (CK-2) CK-MB (CK-2) Rel Index Total Protein Albumin Urine WBC (Auto) Salicylates Acetaminophen Plasma/Serum Alcohol 12/11/19 12/11/19 12/11/19 00:20 05:31 12:22 WBC RBC Hgb Hct MCH RDW Plt Count Lymph % (Auto) [place] % (Auto) [place] # Seg Neutrophils % Seg Neuts % (Manual) Lymphocytes % (Manual) Seg Neutrophils # Seg Neutrophils # Man Lymphocytes # (Manual) Monocytes # (Manual) PT INR APTT ABG pH ABG pO2 ABG HCO3 ABG O2 Saturation ABG Base Excess ABG Hemoglobin Oxyhemoglobin Sodium Potassium Chloride Carbon Dioxide BUN Creatinine Glucose POC Glucose 124 H 132 H 128 H Lactic Acid Calcium Ionized Calcium Phosphorus Magnesium Total Bilirubin AST ALT Alkaline Phosphatase Ammonia Total Creatine Kinase CK-MB (CK-2) CK-MB (CK-2) Rel Index Total Protein Albumin Urine WBC (Auto) Salicylates Acetaminophen Plasma/Serum Alcohol Allied health notes reviewed: nursing
--- NOTE | 2019-12-11 14:24 | Anesthesia Consultation ---
Anesthesia Consult and Med Hx Date of service: 12/12/19 - Pulmonary Exam CTA: Yes (Currently intubated) - Pre-Operative Health Status ASA Pre-Surgery Classification: ASA4 Proposed Anesthetic Plan: General - Pulmonary Hx Smoking: Yes Hx Pneumonia: No - Cardiovascular System Hx Hypertension: Yes Hx Heart Attack/AMI: Yes - Central Nervous System Hx Seizures: Yes CVA: Yes (Left side weakness) - Other Systems Hx Alcohol Use: Yes Hx Substance Use: Yes Hx Cancer: No Hx Obesity: No - Additional Comments Anesthesia Medical History Comments: Patient currently intubated and all information culled from record. H/H- 7.1/22.7; K- 5.6
[2019-12-11] MEDS: chlordiazePOXIDE 25 MG CAP PO SCH ×3 (15:15→22:56)
[2019-12-11] MEDS: QUEtiapine 100 MG TAB PO SCH (21:06)
[2019-12-11] MEDS: LORazepam 2 MG/ML VIAL IV PRN (22:53)
[2019-12-12 05:31] LABS: Hemoglobin 6.8 gm/dl (10.1-14.3); Mean Corpuscular HGB Conc 31 % (30-34); Mean Corpuscular Volume 88 fl (79-97); Platelet Count 582 K/mm3 (140-440); Red Blood Count 2.51 M/mm3 (3.65-5.03); Red Cell Distribution Width 19.9 % (13.2-15.2)
[2019-12-12 05:39] LABS: Calcium 9.8 mg/dL (8.4-10.2)
[2019-12-12] MEDS: chlordiazePOXIDE 25 MG CAP PO SCH ×3 (06:10→22:35)
[2019-12-12] MEDS: METOCLOPRAMIDE 10 MG/2 ML INJ IV SCH (06:10)
[2019-12-12] MEDS: HEPARIN 5,000 UNIT/1 ML VIAL SUB-Q SCH ×2 (10:00→23:18)
[2019-12-12] MEDS: SERTRALINE 25 MG TAB PO SCH (10:00)
[2019-12-12] MEDS: SENNOSIDES/DOCUSATE SODIUM 8.6/50 MG TAB PO SCH ×2 (10:00→22:35)
[2019-12-12] MEDS: hydrOXYzine PAMOATE 25 MG CAP PO SCH ×2 (10:00→22:35)
[2019-12-12] MEDS: levETIRAcetam 500 MG/5 ML ORAL LIQD PO SCH ×2 (10:00→22:35)
[2019-12-12] MEDS: LACTULOSE 20 GM/30 ML ORAL LIQD PO SCH ×2 (10:00→22:36)
[2019-12-12] MEDS: LANSOPRAZOLE 30 MG SOLUTAB FEEDTUBE SCH (10:00)
[2019-12-12] MEDS: MIRTAZAPINE 30 MG TAB PO SCH (10:00)
--- NOTE | 2019-12-12 11:04 | Event Note ---
Date: 12/12/19 Pt chart reviewed. Hb 6.8 from 7.1, 5 days ago. Patient VSS remain the same, with BP in 150s and HR in low 100s. Type and screen ordered and PRBC transfusion ordered per ICU team. Anesthesia updated re: Hb. Discussed with patient's RN Staci who has already obtained blood consent from patient's mother and she was informed again that we are proceeding with T/P for which she consented yesterday. Will proceed with trach/PEG this PM. Dr. Naik notified.
[2019-12-12] MEDS ORDERED: SODIUM CHLORIDE 0.9% 1000 ML 1,000 ML ONE (11:52)
[2019-12-12] MEDS ORDERED: ROCURONIUM 50 MG/5 ML INJ IV ONE (12:07)
[2019-12-12] MEDS ORDERED: PHENYLEPHRINE/NS 1,000 MCG/10 ML SYRINGE (OR USE) IV ONE (12:08)
[2019-12-12] MEDS ORDERED: propofoL 200 MG/20 ML VIAL IV ONE ×2 (12:08)
[2019-12-12] MEDS ORDERED: LIDOCAINE MPF (2%) 20 MG/1 ML VIAL 5 ML ONE (12:08)
--- NOTE | 2019-12-12 13:19 | Procedure Note ---
Date of procedure: 12/12/19 Pre-op diagnosis: VDRF Post-op diagnosis: same Procedure: Tracheostomy placement Findings: Time out performed. The patient was in supine position with a roll between the shoulders to slightly hyperextend her neck. Dr. Benavides performed fiberoptic bronchoscopy throughout the procedure. Please see separate procedure note. The neck was prepped and draped in usual sterile fashion. Local anesthetic was infiltrated into the skin and subcutaneous tissue approximately 2 fingerbreadths above the sternal notch. A 2 cm horizontal incision was made in the skin using a 15 blade. Dissection was carried down through the skin and subcutaneous tissue bluntly using a hemostat. The trachea was palpable. The endotracheal tube was serially retracted under bronchoscopic guidance until a needle could be passed into the trachea through the incision. Air bubbles were aspirated into the syringe. A wire was passed into the trachea towards the mario under direct bronchoscopic guidance. The trachea was serially dilated and a 8 Malagasy Shiley tracheostomy tube was inserted. The balloon was inflated and bronchoscopy was performed through the tracheostomy. There was no bleeding. The tip of the tracheostomy was approximately 3 cm from the mario. The ventilator was connected to the tracheostomy and the inspiratory and expiratory volumes are satisfactory. A drain sponge was applied between the skin and the tracheostomy and the tracheostomy tube secured with a neck strap. All sharps were disposed of appropriately at the end appropriately at the end of the procedure. The patient tolerated the procedure well. Anesthesia: TORIE local Surgeon: MICHAEL GOOD Estimated blood loss: minimal Pathology: none Specimen disposition: to lab Disposition: no change
--- NOTE | 2019-12-12 13:38 | Procedure Note ---
Date of procedure: 12/12/19 Pre-op diagnosis: respiratory failure Post-op diagnosis: same Procedure: Bronchoscopy Consent was on the chart. Timeout was called. After adequate sedation was establish, flexible bronchoscope was introduced via the ETT. The airway was clear. ETT was intially at 22cm. We pulled it back to 18cm. Eventually, we ended up pulling it back to 15cm. Under bronchoscopic guidance, Dr. Nino performed the tracheostomy. Dilator, guidewire, larger dilators, and tracheostomy tube were all directly observed during the case. After the tracheostomy tube was inserted, bronchoscope was introduced via the trach tube and position was confirmed. There was no bleeding. The tip of the tube was at least 3-4cm above the mario. Pt tolerated the procedure well. There were no complications. PEG placement Co-Surgeons Mica Arita Anesth MAC (administered by anesthesia provider) EBL min Implant 20Fr pull PEG tube Procedure - timeout had already been performed. Consent was on the chart. Bite-block was placed. Endoscope was inserted. We intubated the esophagus. Scope was passed down to the stomach. Stomach was insufflated. We identified the area of transillumination in the body of stomach. Dr. Nino then prepped and draped that area. Local anesthetic was administered. Small incision was made. Introducer needle was passed into the stomach. Guidewire was passed which was grabbed with the snare and pulled back up to the mouth. PEG tube was attached. Dr. Nino pulled the PEG tube back into the stomach. Endoscope was reinserted. The button was visualized. There was no evidence of bleeding. There did not appear to be any excess pressure on the stomach. The rest of the stomach was inspected. First and second portions of duodenum were inspected. Esophagus was evaluated as the scope was being pulled out. No abnormalities were found. Patient tolerated the procedure well. There were no complications. The pelvic collar was at 3 cm. Patient was in stable condition at the end of the case in ICU. Findings: short trachea. normal stomach, esophagus, proximal duodenum Implants: 20Fr PEG tube Anesthesia: MAC Surgeon: SIMONA ARITA (Co-surgeon Mica) Estimated blood loss: minimal Pathology: none Condition: stable Disposition: ICU
--- NOTE | 2019-12-12 13:59 | Post Anesthesia Evaluation ---
- Post Anesthesia Evaluation Patient Participated: No Airway Patent: Yes Stable Respiratory Function: Yes Nausea/Vomiting: No Temp > 96.8F: Yes Pain Manageable: Yes Adequeate Hydration: Yes Anesthesia Complications: No Block Receding Appropriately: Not Applicable Patient on Ventilator: Yes
--- NOTE | 2019-12-12 14:04 | XRay Report ---
CHEST 1 VIEW INDICATION / CLINICAL INFORMATION: s/p trach. COMPARISON: 12/10/2019 FINDINGS: SUPPORT DEVICES: The NG tube and endotracheal tubes have been removed. A tracheostomy tube is now in place appearing to be in good position. Gastrostomy tube is also seen in the left upper quadrant. HEART / MEDIASTINUM: No significant abnormality. LUNGS / PLEURA: Right lung is clear. There is now moderate left lung consolidation not seen previousl y. No pneumothorax. No pneumomediastinum is seen. ADDITIONAL FINDINGS: No significant additional findings. IMPRESSION: 1 Tracheostomy tube placement. There is developing left lung consolidation and volume loss. Signer Name: Yoni Desai MD Signed: 12/12/2019 1:59 PM Workstation Name: [id number]
--- NOTE | 2019-12-12 14:12 | Progress Note ---
Assessment and Plan Assessment and plan: Patient is a 54-year-old woman with a history of Hypertension, Depression, tobacco and alcohol dependency who presented to [facility] ED on 11/22/2019 due to cardiac arrest outside of the hospital. EMS found pt in PEA. Upon their arrival patient in sinus tachycardia. EMS were unable to intubate patient with a ET tube because she was clenching down therefore Joe airway placed per records. Patient received Narcan and Epinephrine. Patient's rhythm changed to PEA to sinus bradycardia, to PEA, then to sinus tach after receiving Narcan and Epinephrine. Per the ED physician who evaluated pt, Patient presented with a pulse, intermittent respirations, and bagging support via Joe airway with O2 sat of 100%. Accu-Chek of 71 obtained by EMS Status post cardiac arrest, etiology unknown Acute respiratory failure with hypoxia s/p Intubation via ETT >96 hours: Trach and PEG planned, CCM following Seizure disorder: treat with Keppra Presumed anoxic brain injury: Neurology is following Alcohol abuse: [facility] protocol Acute metabolic encephalopathy/toxic encephalopathy due to the above BHAVANA secondary to vasomotor nephropathy: treat with IVF Hypertension: watch bp closely, prn IV antihypertensives prn Distended abdomen: treat with NGT to suction Transaminitis with Ischemic hepatitis Acute cystitis with Sepsis, not sure POA, treated with antibiotics and this completed a few days 11/29/2019 ago no growth was noted on cultures no fever. We will continue off antibiotics at this time. Metabolic acidosis/alcoholic acidosis/lactic acidosis Full code DVT ppx: sq heparin 12/04-: Patient failed CPAP trial became apneic according to documentation. No clinical change, continue current management, monitor H/H Awaiting labs. No new changes at this time opens eyes. Surgeon discussed trach and PEG with family b ut they want to get more information about hospice which they have been directed to the [facility]. Patient overnight had a episode of vomiting. Zofran started. 12/11/19: I took over patient care on day 18, Patient remains intubated, daily weaning trails. Trach and PEG planned once family consents. Mother is Anh Jesus @ [phone]. CCT 31 minutes 12/12/19: transfuse PRBC, trach and PEG History Interval history: Patient was seen and examined. Follow-up on current diagnosis of Respiratory failure. Overnight uneventful as no events directly reported to me. Imaging, nursing note, chart, labs and old chart reviewed. Hospitalist Physical - Physical exam Narrative exam: Gen: critical ill, intubated HEENT: ETT in place Neck: supple, no adenopathy, no thyromegaly, no JVD CVS/Heart: Regular Tachycardia, normal S1S2, pulses present bilaterally Chest/Lungs: CTA B, Symmetrical chest expansion, good air entry bilaterally GI/Abdomen: soft, NTND, good bowel sounds, no guarding or rebound Neuro: doesnt follow commands Psych: not responding - Constitutional Vitals: Temp Pulse Resp BP Pulse Ox 98.0 F 95 H 16 135/76 100 12/12/19 12:00 12/12/19 13:48 12/12/19 12:00 12/12/19 13:48 12/12/19 13:48 General appearance: Present: no acute distress, other (on vent with sedation) Results - Labs CBC & Chem 7: 12/12/19 05:18 12/12/19 03:51 Labs: Laboratory Last Values WBC 18.0 K/mm3 (4.5-11.0) H 12/12/19 05:18 RBC 2.51 M/mm3 (3.65-5.03) L 12/12/19 05:18 Hgb 6.8 gm/dl (10.1-14.3) L 12/12/19 05:18 Hct 22.0 % (30.3-42.9) L 12/12/19 05:18 MCV 88 fl (79-97) 12/12/19 05:18 MCH 27 pg (28-32) L 12/12/19 05:18 MCHC 31 % (30-34) 12/12/19 05:18 RDW 19.9 % (13.2-15.2) H 12/12/19 05:18 Plt Count 582 K/mm3 (140-440) H 12/12/19 05:18 Lymph % (Auto) 11.3 % (13.4-35.0) L 12/04/19 07:45 Williamson % (Auto) 15.2 % (0.0-7.3) H 12/04/19 07:45 Eos % (Auto) 0.5 % (0.0-4.3) 12/04/19 07:45 Baso % (Auto) 0.6 % (0.0-1.8) 12/04/19 07:45 Lymph # 1.8 K/mm3 (1.2-5.4) 12/04/19 07:45 Williamson # 2.4 K/mm3 (0.0-0.8) H 12/04/19 07:45 Eos # 0.1 K/mm3 (0.0-0.4) 12/04/19 07:45 Baso # 0.1 K/mm3 (0.0-0.1) 12/04/19 07:45 Add Manual Diff Complete 12/04/19 07:45 Total Counted 100 12/01/19 08:23 Seg Neutrophils % 72.4 % (40.0-70.0) H 12/04/19 07:45 Seg Neuts % (Manual) 91.0 % (40.0-70.0) H 12/01/19 08:23 Band Neutrophils % 0 % 12/01/19 08:23 Lymphocytes % (Manual) 3.0 % (13.4-35.0) L 12/01/19 08:23 Reactive Lymphs % (Man) 1.0 % 12/01/19 08:23 Monocytes % (Manual) 5.0 % (0.0-7.3) 12/01/19 08:23 Eosinophils % (Manual) 0 % (0.0-4.3) 12/01/19 08:23 Basophils % (Manual) 0 % (0.0-1.8) 12/01/19 08:23 Metamyelocytes % 0 % 12/01/19 08:23 Myelocytes % 0 % 12/01/19 08:23 Promyelocytes % 0 % 12/01/19 08:23 Blast Cells % 0 % 12/01/19 08:23 Nucleated RBC % Not Reportable 12/01/19 08:23 Seg Neutrophils # 11.5 K/mm3 (1.8-7.7) H 12/04/19 07:45 Seg Neutrophils # Man 20.7 K/mm3 (1.8-7.7) H 12/01/19 08:23 Band Neutrophils # 0.0 K/mm3 12/01/19 08:23 Lymphocytes # (Manual) 0.7 K/mm3 (1.2-5.4) L 12/01/19 08:23 Abs React Lymphs (Man) 0.2 K/mm3 12/01/19 08:23 Monocytes # (Manual) 1.1 K/mm3 (0.0-0.8) H 12/01/19 08:23 Eosinophils # (Manual) 0.0 K/mm3 (0.0-0.4) 12/01/19 08:23 Basophils # (Manual) 0.0 K/mm3 (0.0-0.1) 12/01/19 08:23 Metamyelocytes # 0.0 K/mm3 12/01/19 08:23 Myelocytes # 0.0 K/mm3 12/01/19 08:23 Promyelocytes # 0.0 K/mm3 12/01/19 08:23 Blast Cells # 0.0 K/mm3 12/01/19 08:23 WBC Morphology Not Reportable 12/01/19 08:23 Hypersegmented Neuts Not Reportable 12/01/19 08:23 Hyposegmented Neuts Not Reportable 12/01/19 08:23 Hypogranular Neuts Not Reportable 12/01/19 08:23 Smudge Cells Not Reportable 12/01/19 08:23 Toxic Granulation Not Reportable 12/01/19 08:23 Toxic Vacuolation Not Reportable 12/01/19 08:23 Dohle Bodies Not Reportable 12/01/19 08:23 Pelger-Huet Anomaly Not Reportable 12/01/19 08:23 Dominique Rods Not Reportable 12/01/19 08:23 Platelet Estimate Consistent w auto 12/01/19 08:23 Clumped Platelets Not Reportable 12/01/19 08:23 Plt Clumps, EDTA Not Reportable 12/01/19 08:23 Large Platelets Not Reportable 12/01/19 08:23 Giant Platelets Few 12/01/19 08:23 Platelet Satelliting Not Reportable 12/01/19 08:23 Plt Morphology Comment Not Reportable 12/01/19 08:23 RBC Morphology Not Reportable 12/01/19 08:23 Dimorphic RBCs Not Reportable 12/01/19 08:23 Polychromasia Few 12/01/19 08:23 Hypochromasia Few 12/01/19 08:23 Poikilocytosis Not Reportable 12/01/19 08:23 Anisocytosis Not Reportable 12/01/19 08:23 Microcytosis Not Reportable 12/01/19 08:23 Macrocytosis Not Reportable 12/01/19 08:23 Spherocytes Not Reportable 12/01/19 08:23 Pappenheimer Bodies Not Reportable 12/01/19 08:23 Sickle Cells Not Reportable 12/01/19 08:23 Target Cells 1+ 12/01/19 08:23 Tear Drop Cells Not Reportable 12/01/19 08:23 Ovalocytes Not Reportable 12/01/19 08:23 Helmet Cells Not Reportable 12/01/19 08:23 [place] Bodies Not Reportable 12/01/19 08:23 [place] Rings Not Reportable 12/01/19 08:23 Jamshid Cells Not Reportable 12/01/19 08:23 Bite Cells Not Reportable 12/01/19 08:23 Crenated Cell Not Reportable 12/01/19 08:23 Elliptocytes Not Reportable 12/01/19 08:23 Acanthocytes (Spur) Not Reportable 12/01/19 08:23 Rouleaux Not Reportable 12/01/19 08:23 Hemoglobin C Crystals Not Reportable 12/01/19 08:23 Schistocytes Not Reportable 12/01/19 08:23 Malaria parasites Not Reportable 12/01/19 08:23 Gregg Bodies Not Reportable 12/01/19 08:23 Hem Pathologist Commnt No 12/01/19 08:23 PT 17.0 Sec. (12.2-14.9) H 11/23/19 03:47 INR 1.36 (0.87-1.13) H 11/23/19 03:47 APTT 128.2 Sec. (24.2-36.6) H* 11/23/19 03:47 Heparin Anti-Xa Level 0.31 U.I./ml (0.3-0.7) 11/23/19 09:03 ABG pH 7.437 pH Units (7.350-7.450) 12/03/19 20:00 ABG pCO2 50.7 mm Hg 12/03/19 20:00 ABG pO2 68.3 mm Hg (80.0-90.0) L 12/03/19 20:00 ABG HCO3 33.5 mmol/L (20.0-26.0) H 12/03/19 20:00 ABG O2 Saturation 93.5 % (95.0-99.0) L 12/03/19 20:00 ABG O2 Content 9.5 (0.0-44) 12/03/19 20:00 ABG Base Excess 8.4 mmol/L (-2.0-3.0) H 12/03/19 20:00 ABG Hemoglobin 7.3 gm/dl (12.0-16.0) L 12/03/19 20:00 ABG Carboxyhemoglobin 2.3 % (0.0-5.0) 12/03/19 20:00 ABG Methemoglobin 0.4 % (0.0-1.5) 12/03/19 20:00 Oxyhemoglobin 90.9 % (95.0-99.0) L 12/03/19 20:00 FiO2 30 % 12/03/19 20:00 Sodium 149 mmol/L (137-145) H 12/12/19 03:51 Potassium 4.4 mmol/L (3.6-5.0) 12/12/19 03:51 Chloride 106.3 mmol/L (98-107) 12/12/19 03:51 Carbon Dioxide 20 mmol/L (22-30) L D 12/12/19 03:51 Anion Gap 27 mmol/L 12/12/19 03:51 BUN 77 mg/dL (7-17) H 12/12/19 03:51 Creatinine 2.8 mg/dL (0.7-1.2) H 12/12/19 03:51 Estimated GFR 21 ml/min 12/12/19 03:51 BUN/Creatinine Ratio 28 % 12/12/19 03:51 Glucose 100 mg/dL (65-100) 12/12/19 03:51 POC Glucose 108 (70-105) H 12/12/19 11:44 Lactic Acid 1.80 mmol/L (0.7-2.0) 11/25/19 05:05 Calcium 9.8 mg/dL (8.4-10.2) 12/12/19 03:51 Ionized Calcium 4.5 mg/dL (4.8-5.6) L 11/23/19 06:32 Phosphorus 4.20 mg/dL (2.5-4.5) D 11/28/19 08:59 Magnesium 2.30 mg/dL (1.7-2.3) 11/29/19 13:41 Total Bilirubin 0.60 mg/dL (0.1-1.2) 12/06/19 04:14 AST 89 units/L (5-40) H 12/06/19 04:14 ALT 98 units/L (7-56) H 12/06/19 04:14 Alkaline Phosphatase 476 units/L (35-129) H 12/06/19 04:14 Ammonia 42.0 umol/L (25-60) 11/29/19 13:41 Total Creatine Kinase 139 units/L (30-135) H 11/22/19 23:27 CK-MB (CK-2) 8.3 ng/mL (0.0-4.0) H 11/22/19 23:27 CK-MB (CK-2) Rel Index 5.9 (0-4) H 11/22/19 23:27 Troponin T < 0.010 ng/mL (0.00-0.029) 11/22/19 23:27 Total Protein 7.3 g/dL (6.3-8.2) 12/06/19 04:14 Albumin 2.8 g/dL (3.9-5) L 12/06/19 04:14 Albumin/Globulin Ratio 0.6 % 12/06/19 04:14 Lipase 18 units/L (13-60) 11/23/19 00:34 Procalcitonin 1.09 ng/mL (<0.15) 11/23/19 04:53 Urine Color Yellow (Yellow) 11/22/19 23:17 Urine Turbidity Cloudy (Clear) 11/22/19 23:17 Urine pH 6.0 (5.0-7.0) 11/22/19 23:17 Ur Specific [place] 1.010 (1.003-1.030) 11/22/19 23:17 Urine Protein >500 mg/dL (Negative) 11/22/19 23:17 Urine Glucose (UA) >=500 mg/dL (Negative) 11/22/19 23:17 Urine Ketones 20 mg/dL (Negative) 11/22/19 23:17 Urine Blood Mod (Negative) 11/22/19 23:17 Urine Nitrite Neg (Negative) 11/22/19 23:17 Urine Bilirubin Neg (Negative) 11/22/19 23:17 Urine Urobilinogen 4.0 mg/dL (<2.0) 11/22/19 23:17 Ur Leukocyte Esterase Neg (Negative) 11/22/19 23:17 Urine WBC (Auto) 40.0 /HPF (0.0-6.0) H 11/22/19 23:17 Urine RBC (Auto) 10.0 /HPF (0.0-6.0) 11/22/19 23:17 U Epithel Cells (Auto) 1.0 /HPF (0-13.0) 11/22/19 23:17 Urine Bacteria (Auto) 2+ /HPF (Negative) 11/22/19 23:17 Urine Mucus Few /HPF 11/22/19 23:17 Salicylates < 0.3 mg/dL (2.8-20.0) L 11/22/19 23:27 Urine Opiates Screen Presumptive negative 11/22/19 23:17 Urine Methadone Screen Presumptive negative 11/22/19 23:17 Acetaminophen < 5.0 ug/mL (10.0-30.0) L 11/22/19 23:27 Ur Barbiturates Screen Presumptive negative 11/22/19 23:17 Ur Phencyclidine Scrn Presumptive negative 11/22/19 23:17 Ur Amphetamines Screen Presumptive negative 11/22/19 23:17 U Benzodiazepines Scrn Presumptive negative 11/22/19 23:17 Urine Cocaine Screen Presumptive negative 11/22/19 23:17 U Marijuana (THC) Screen Presumptive negative 11/22/19 23:17 Drugs of Abuse Note Disclamer 11/22/19 23:17 Plasma/Serum Alcohol 0.08 % (0-0.07) H 11/22/19 23:27 Hepatitis A IgM Ab Non-reactive (NonReactive) 11/23/19 01:19 Hep Bs Antigen Non-reactive (Negative) 11/23/19 01:19 Hep B Core IgM Ab Non-reactive (NonReactive) 11/23/19 01:19 Hepatitis C Antibody Non-reactive (NonReactive) 11/23/19 01:19 Blood Type O POSITIVE 12/12/19 10:30 Antibody Screen Negative 12/12/19 10:30 - Diagnostic Impressions Diagnostic Impressions: Echocardiogram 11/23/19 03:58 Transthoracic Echocardiogram Indication: Cardiac arrest BP: 131/89 HR: 115 Conclusions *The study quality is technically difficult. *Global left ventricular wall motion and contractility are within normal limits. *The estimated ejection fraction is 55-60%. *Abnormal left ventricular diastolic filling is observed, consistent with impaired relaxation. *There is no pericardial effusion. Findings Procedure Info: The study quality is technically difficult. The study was technically limited due to the patient's inability to lay in the left lateral decubitus position. Left Ventricle: The left ventricular chamber size is normal. There is no left ventricular hypertrophy. Global left ventricular wall motion and contractility are within normal limits. Global left ventricular systolic function is normal. The estimated ejection fraction is 55-60%. Abnormal left ventricular diastolic filling is observed, consistent with impaired relaxation. Left Atrium: The left atrial chamber size is normal. Aortic Valve: The aortic valve leaflets are mildly thickened. Mitral Valve: The mitral valve leaflets are mildly thickened. There is no evidence of mitral regurgitation. Tricuspid Valve: The tricuspid valve leaflets are normal. There is trace tricuspid regurgitation. The right ventricular systolic pressure is calculated at 33 mmHg. Pulmonic Valve: The pulmonic valve appears normal. Pericardium: The pericardium appears normal. There is no pericardial effusion. Aorta: The aorta appears normal. Venous: The inferior vena cava appears normal in size. Measurements Chambers 2D Name Value Normal Range IVSd (2D) 0.94 cm (0.6 - 1.1) LVPWd (2D) 0.81 cm (0.6 - 1.1) LVIDd (2D) 3.6 cm (3.7 - 5.6) LVIDs (2D) 2.27 cm (2 - 3.8) LV FS (2D) 36.93 % - EF Teichholz (2D) 67.76 % - Ao root diameter (2D) 3.03 cm (2 - 3.7) Volumes/Mass Name Value Normal Range LA ESV SP 4CH (A/L) 16.89 ml - LA ESV SP 4CH (MOD) 15.52 ml - Diastolic/Systolic Function Name Value Normal Range MV E-wave Vmax 0.55 m/sec - MV deceleration time 200.89 msec - MV A-wave Vmax 0.68 m/sec - MV E:A ratio 0.82 ratio - Aortic Valve Name Value Normal Range AV Vmax 1.1 m/sec - AV VTI 15.9 cm - AV peak gradient 4.86 mmHg - AV mean gradient 2.59 mmHg - LVOT diameter 2 cm - LVOT Vmax 1.03 m/sec - LVOT VTI 15.87 cm - LVOT peak gradient 4.24 mmHg - LVOT mean gradient 2.41 mmHg - SV LVOT 49.77 ml - JOSÉ MIGUEL (continuity Vmax) 2.93 cm2 - JOSÉ MIGUEL (continuity VTI) 3.13 cm2 - Tricuspid Valve Name Value Normal Range TR Vmax 2.74 m/sec - TR peak gradient 303 mmHg - RAP 3 mmHg - RVSP 33 mmHg - IVC diameter 1.77 cm (1.2 - 2.3) Pulmonic Valve/Qp:Qs Name Value Normal Range PV Vmax 0.77 m/sec - PV peak gradient 2.4 mmHg - PV acceleration time 114.18 msec - Dela Cruz/IV: Voiding Method External Female Catheter IV Catheter Type [Right Peripheral IV Antecubital] IV Catheter Type [Right Hand] Peripheral IV IV Catheter Type [Right Wrist] Peripheral IV IV Catheter Type [Left Wrist] Peripheral IV IV Catheter Type [Left Peripheral IV Antecubital] IV Catheter Type [Right INT / Saline Lock Forearm] IV Catheter Type [Left Hand] Peripheral IV Active Medications - Current Medications Current Medications: Generic Name Dose Route Start Last Admin Trade Name Freq PRN Reason Stop Dose Admin Acetaminophen 650 mg 12/06/19 10:25 12/06/19 11:22 Tylenol FEEDTUBE 650 mg Q6H PRN Administration TEMP >/=100.3 Lipase/Protease/Amylase 1 each 11/23/19 11:[address] 10,500 Unit FEEDTUBE PRN PRN For Clogged Feeding Tube Chlordiazepoxide HCl 50 mg 12/04/19 14:00 12/12/19 06:10 Librium PO 50 mg Q8H LUCHO Administration Fentanyl 25 mcg 12/04/19 17:00 12/10/19 16:31 Duragesic TD 25 mcg Q3D LUCHO Administration Fentanyl 50 mcg 12/05/19 02:10 Sublimaze IV Q10MIN PRN ANALGESIA Heparin Sodium (Porcine) 5,000 unit 11/23/19 22:00 12/11/19 21:06 Heparin SUB-Q 5,000 unit Q12HR LUCHO Administration Hydralazine HCl 10 mg 11/24/19 00:45 12/09/19 22:26 Apresoline IV 10 mg Q6H PRN Administration SBP > 160 Hydrophilic Ointment 1 applic 11/22/19 23:23 Vaseline Lip Therapy TP Q2HR PRN Dry Lips Hydroxyzine Pamoate 25 mg 12/06/19 10:00 12/11/19 21:06 Vistaril PO 25 mg BID LUCHO Administration Lactulose 30 gm 12/11/19 11:00 12/11/19 21:05 Cephulac PO 30 gm BID LUCHO Administration Lansoprazole 30 mg 11/27/19 10:00 12/11/19 10:51 Prevacid Solutab FEEDTUBE 30 mg QDAY LUCHO Administration Levetiracetam 500 mg 11/29/19 10:00 12/11/19 21:06 Keppra PO 500 mg BID LUCHO Administration Lorazepam 2 mg 11/26/19 11:09 12/11/19 22:53 Ativan IV 2 mg Q4H PRN Administration Agitation Mirtazapine 30 mg 12/06/19 10:00 12/11/19 10:52 Remeron PO 30 mg DAILY LUCHO Administration Multi-Ingred Cream/Lotion/Oil/Oint 1 applic 11/22/19 23:23 Artificial Tears Ophth Oint OU Q4HR PRN Dry Eye(s) Ondansetron HCl 4 mg 12/10/19 07:53 12/10/19 09:51 Zofran IV 4 mg Q4H PRN Administration Nausea And Vomiting Quetiapine Fumarate 300 mg 12/07/19 22:00 12/11/19 21:06 Seroquel PO 300 mg QHS LCUHO Administration Senna/Docusate Sodium 2 tab 12/10/19 10:00 12/11/19 21:06 Senokot S PO 2 tab BID LUCHO Administration Sertraline HCl 25 mg 12/06/19 10:00 12/11/19 10:51 Zoloft PO 25 mg QDAY LUCHO Administration Simple Syrup 15 ml 11/23/19 11:50 Simple Syrup FEEDTUBE PRN PRN Hypoglycemia Simple Syrup 30 ml 11/23/19 11:50 Simple Syrup FEEDTUBE PRN PRN Hypoglycemia Sodium Bicarbonate 325 mg 11/23/19 11:50 Sodium Bicarbonate FEEDTUBE PRN PRN For Clogged Feeding Tube Nutrition/Malnutrition Assess - Dietary Evaluation Nutrition/Malnutrition Findings: Nutrition Notes Start: 11/23/19 11:29 Freq: Status: Active Protocol: Document 12/12/19 10:46 LM (Rec: 12/12/19 10:47 LM [email or web address]) Nutrition Notes Initial or Follow up Brief Note Current Diagnosis Hypertension Other Pertinent Diagnosis Cardaic arrest, ETOH dependence, UTI Current Diet NPO Subjective/Other Information Pt NPO for procedure today. Nutrition Intervention Follow-Up By: 12/14/19 Additional Comments F/U for TF resart
--- NOTE | 2019-12-12 14:18 | Progress Note ---
Assessment and Plan Acute cardiopulmonary arrest with ROSC Acute hypoxemic respiratory failure on MVS Acute vtbqxcudf-vuool-isghlo encephalopathy Metabolic acidosis/alcoholic acidosis/Lactic acidosis( resolved) Ischemic hepatitis Thrombocytosis Tobacco use disorder Alcohol use Disorder Anemia -Discussed with RT, the need for daily SBT-continue the same while monitoring response -Place barrera catheter -Transfuse 1 unit PRBC -Stop Reglan and monitor -Hold heparin for tracheostomy placement this afternoon -Continue all care as documented below. -Continue with MVS, Lung protective strategies, monitor airway pressures -VAP bundle addressed -Continue aspiration precautions, HOB>40 -Continue daily assessment for readiness for SBT -Continue Stress ulcer prophylaxis -Continue enteric nutritional support at goal rate. Monitor glycemic control, with target blood glucose 140-180 mg/dL while critically ill. -Avoid hypoglycemia - Continue to wean supplemental oxygen for target O2 sat's > 90% -ABG and CXR prn -Continue to trend leukocytosis -Continue to treat for hepatic encephalopathy-bowel regimen, no need to trend ammonia levels -Continue thiamine, multivitamin and electrolyte replacement -Continue to avoid nephrotoxins, adjust all medications for GFR and CrCL - Continue bronchodilators with pulmonary hygiene - Continue prn analgesia per CPOT score - Continue to maintain of sleep-wake cycle, avoid delirium - PT/OT/ROM exercises - Continue mobility protocol and skin assessment per protocol for pressure ulcer prevention - Continue to monitor for clinical seizures - continue other care per attending / other consultants CONDITION: CRITICAL PROGNOSIS: GUARDED CODE STATUS: FULL CODE The high probability of a clinically significant, sudden or life-threatening deterioration of the [respiratory, cardiovascular,GI/hepatology/Neurology] system(s) required my full and direct attention, intervention and personal management. The aggregate critical care time was [31] minutes without overlap. Time includes spent on; [x] Data Review and interpretation [x] Patient assessment and monitoring of vital signs [x] Documentation [x] Medication orders and management Subjective Date of service: 12/12/19 Principal diagnosis: Ac cardiopulmonary arrest; Ac hypoxemic resp failure; Acute encephalopathy Interval history: Patient is seen today for: Acute cardiopulmonary arrest with ROSC; Acute hypox emic respiratory failure; Acute metabolic-toxic encephalopathy; Ischemic hepatitis; Leucocytosis with lactic acidosis; Tobacco use disorder; Alcohol use Disorder; High grade fevers Seen and examined at bedside; 24hour events reviewed; nursing and respiratory care staff consulted; no adverse overnight events reported to me; resting peacefully in bed; no fevers, remains orally intubated and on MVS. Appears to be a little more awake, not obeying commands, Anemia with Hgb 6.8g/dL without obvious signs of bleeding, ongoing abdominal distension- appears to have urinary retention- on bladder scan >900ml of urine. Has trach and PEG scheduled for today-NPO Objective Vital Signs - 12hr 12/12/19 12/12/19 12/12/19 03:00 04:00 05:00 Temperature 98.9 F Pulse Rate 103 H 107 H 103 H Pulse Rate [ 97 H From Monitor] Respiratory 18 16 16 Rate Blood Pressure 141/89 146/90 141/87 O2 Sat by Pulse 99 100 Oximetry 12/12/19 12/12/19 12/12/19 05:03 06:00 07:00 Temperature Pulse Rate 102 H 105 H 106 H Pulse Rate [ From Monitor] Respiratory 17 16 Rate Blood Pressure 141/87 153/93 137/86 O2 Sat by Pulse 100 99 98 Oximetry 12/12/19 12/12/19 12/12/19 08:00 09:00 10:00 Temperature 98.3 F Pulse Rate 101 H 97 H 100 H Pulse Rate [ 101 H 100 H From Monitor] Respiratory 16 16 16 Rate Blood Pressure 158/96 151/88 150/89 O2 Sat by Pulse 100 99 100 Oximetry 12/12/19 12/12/19 12/12/19 11:00 11:24 12:00 Temperature 98.0 F Pulse Rate 100 H 98 H 99 H Pulse Rate [ 93 H From Monitor] Respiratory 16 16 Rate Blood Pressure 150/92 150/92 153/87 O2 Sat by Pulse 100 100 100 Oximetry 12/12/19 12/12/19 13:38 13:48 Temperature Pulse Rate 99 H 95 H Pulse Rate [ From Monitor] Respiratory Rate Blood Pressure 131/79 135/76 O2 Sat by Pulse 100 100 Oximetry Constitutional: no acute distress, other (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, orally intuabted ETT at 23 cm at the lip to mVS, mild dys-synchrony) Eyes: non-icteric ENT: oropharynx moist, other (ETT 23 cm AMALIA) Neck: supple, no lymphadenopathy, no JVD Effort: mildly labored Ascultation: Bilateral: diminished breath sounds, rhonchi Percussion: Bilateral: not dull Cardiovascular: regular rate and rhythm (tachycardia), other (S1,S2) Gastrointestinal: normoactive bowel sounds, soft, non-tender, non-distended Integumentary: normal Extremities: no cyanosis, no edema, pulses normal, no ischemia or petechiae Neurologic: unable to assess, other (awake but not tracking voice ) Psychiatric: other (Psychiatric: Unable to assess) CBC and BMP: 12/12/19 05:18 12/12/19 03:51 ABG, PT/INR, D-dimer: ABG ABG pH 7.437 pH Units (7.350-7.450) 12/03/19 20:00 ABG pCO2 50.7 mm Hg 12/03/19 20:00 ABG pO2 68.3 mm Hg (80.0-90.0) L 12/03/19 20:00 ABG O2 Saturation 93.5 % (95.0-99.0) L 12/03/19 20:00 PT/INR, D-dimer PT 17.0 Sec. (12.2-14.9) H 11/23/19 03:47 INR 1.36 (0.87-1.13) H 11/23/19 03:47 Abnormal lab findings: Abnormal Labs 11/22/19 11/22/19 11/22/19 23:17 23:18 23:27 WBC 21.2 H RBC 3.59 L Hgb 9.8 L Hct MCH 27 L RDW 18.6 H Plt Count 454 H Lymph % (Auto) [place] % (Auto) [place] # Seg Neutrophils % Seg Neuts % (Manual) 86.0 H Lymphocytes % (Manual) 9.0 L Seg Neutrophils # Seg Neutrophils # Man 18.2 H Lymphocytes # (Manual) Monocytes # (Manual) 1.1 H PT INR APTT ABG pH ABG pO2 ABG HCO3 ABG O2 Saturation ABG Base Excess ABG Hemoglobin Oxyhemoglobin Sodium Potassium Chloride Carbon Dioxide BUN Creatinine Glucose POC Glucose 53 L Lactic Acid Calcium Ionized Calcium Phosphorus Magnesium Total Bilirubin AST ALT Alkaline Phosphatase Ammonia Total Creatine Kinase CK-MB (CK-2) CK-MB (CK-2) Rel Index Total Protein Albumin Urine WBC (Auto) 40.0 H Salicylates Acetaminophen Plasma/Serum Alcohol 11/22/19 11/22/19 11/22/19 23:27 23:27 23:27 WBC RBC Hgb Hct MCH RDW Plt Count Lymph % (Auto) [place] % (Auto) [place] # Seg Neutrophils % Seg Neuts % (Manual) Lymphocytes % (Manual) Seg Neutrophils # Seg Neutrophils # Man Lymphocytes # (Manual) Monocytes # (Manual) PT INR APTT ABG pH ABG pO2 ABG HCO3 ABG O2 Saturation ABG Base Excess ABG Hemoglobin Oxyhemoglobin Sodium Potassium 2.4 L* Chloride 85.1 L Carbon Dioxide 19 L BUN Creatinine 0.5 L Glucose 261 H POC Glucose Lactic Acid Calcium Ionized Calcium Phosphorus Magnesium Total Bilirubin AST 609 H ALT 152 H Alkaline Phosphatase 160 H Ammonia 117.0 H Total Creatine Kinase 139 H CK-MB (CK-2) 8.3 H CK-MB (CK-2) Rel Index 5.9 H Total Protein Albumin 3.6 L Urine WBC (Auto) Salicylates < 0.3 L Acetaminophen Plasma/Serum Alcohol 11/22/19 11/22/19 11/23/19 23:27 23:27 01:10 WBC RBC Hgb Hct MCH RDW Plt Count Lymph % (Auto) [place] % (Auto) [place] # Seg Neutrophils % Seg Neuts % (Manual) Lymphocytes % (Manual) Seg Neutrophils # Seg Neutrophils # Man Lymphocytes # (Manual) Monocytes # (Manual) PT INR APTT ABG pH 7.273 L ABG pO2 209.7 H ABG HCO3 ABG O2 Saturation 99.2 H ABG Base Excess -3.9 L ABG Hemoglobin 10.6 L Oxyhemoglobin 93.9 L Sodium Potassium Chloride Carbon Dioxide BUN Creatinine Glucose POC Glucose Lactic Acid Calcium Ionized Calcium Phosphorus Magnesium Total Bilirubin AST ALT Alkaline Phosphatase Ammonia Total Creatine Kinase CK-MB (CK-2) CK-MB (CK-2) Rel Index Total Protein Albumin Urine WBC (Auto) Salicylates Acetaminophen < 5.0 L Plasma/Serum Alcohol 0.08 H 11/23/19 11/23/19 11/23/19 01:19 01:19 03:47 WBC RBC Hgb Hct MCH RDW Plt Count Lymph % (Auto) [place] % (Auto) [place] # Seg Neutrophils % Seg Neuts % (Manual) Lymphocytes % (Manual) Seg Neutrophils # Seg Neutrophils # Man Lymphocytes # (Manual) Monocytes # (Manual) PT 16.3 H INR 1.29 H APTT ABG pH ABG pO2 ABG HCO3 ABG O2 Saturation ABG Base Excess ABG Hemoglobin Oxyhemoglobin Sodium Potassium Chloride Carbon Dioxide BUN Creatinine Glucose POC Glucose Lactic Acid 2.10 H* 5.00 H* Calcium Ionized Calcium Phosphorus Magnesium Total Bilirubin AST ALT Alkaline Phosphatase Ammonia Total Creatine Kinase CK-MB (CK-2) CK-MB (CK-2) Rel Index Total Protein Albumin Urine WBC (Auto) Salicylates Acetaminophen Plasma/Serum Alcohol 11/23/19 11/23/19 11/23/19 03:47 03:47 04:53 WBC RBC Hgb 9.4 L Hct MCH RDW Plt Count Lymph % (Auto) [place] % (Auto) [place] # Seg Neutrophils % Seg Neuts % (Manual) Lymphocytes % (Manual) Seg Neutrophils # Seg Neutrophils # Man Lymphocytes # (Manual) Monocytes # (Manual) PT 17.0 H INR 1.36 H APTT 128.2 H* ABG pH ABG pO2 ABG HCO3 ABG O2 Saturation ABG Base Excess ABG Hemoglobin Oxyhemoglobin Sodium Potassium Chloride Carbon Dioxide 18 L BUN Creatinine 0.5 L Glucose 105 H POC Glucose Lactic Acid Calcium 8.3 L Ionized Calcium Phosphorus 2.40 L Magnesium Total Bilirubin 1.30 H AST 761 H ALT 158 H Alkaline Phosphatase 143 H Ammonia Total Creatine Kinase CK-MB (CK-2) CK-MB (CK-2) Rel Index Total Protein Albumin 2.8 L Urine WBC (Auto) Salicylates Acetaminophen Plasma/Serum Alcohol 11/23/19 11/23/19 11/23/19 05:12 06:32 06:32 WBC 16.8 H RBC 3.31 L Hgb 8.9 L Hct 28.7 L MCH 27 L RDW 18.6 H Plt Count Lymph % (Auto) [place] % (Auto) [place] # Seg Neutrophils % Seg Neuts % (Manual) 94.0 H Lymphocytes % (Manual) 1.0 L Seg Neutrophils # Seg Neutrophils # Man 15.8 H Lymphocytes # (Manual) 0.2 L Monocytes # (Manual) PT INR APTT ABG pH ABG pO2 ABG HCO3 ABG O2 Saturation ABG Base Excess -3.2 L ABG Hemoglobin 9.0 L Oxyhemoglobin 93.6 L Sodium Potassium Chloride Carbon Dioxide BUN Creatinine Glucose POC Glucose Lactic Acid Calcium Ionized Calcium 4.5 L Phosphorus Magnesium Total Bilirubin AST ALT Alkaline Phosphatase Ammonia Total Creatine Kinase CK-MB (CK-2) CK-MB (CK-2) Rel Index Total Protein Albumin Urine WBC (Auto) Salicylates Acetaminophen Plasma/Serum Alcohol 11/23/19 11/24/19 11/24/19 06:32 04:35 04:35 WBC RBC Hgb Hct MCH RDW Plt Count Lymph % (Auto) [place] % (Auto) [place] # Seg Neutrophils % Seg Neuts % (Manual) Lymphocytes % (Manual) Seg Neutrophils # Seg Neutrophils # Man Lymphocytes # (Manual) Monocytes # (Manual) PT INR APTT ABG pH ABG pO2 ABG HCO3 ABG O2 Saturation ABG Base Excess ABG Hemoglobin Oxyhemoglobin Sodium Potassium Chloride Carbon Dioxide BUN Creatinine Glucose POC Glucose Lactic Acid 3.30 H* Calcium Ionized Calcium Phosphorus Magnesium 1.40 L Total Bilirubin AST ALT Alkaline Phosphatase Ammonia 98.0 H Total Creatine Kinase CK-MB (CK-2) CK-MB (CK-2) Rel Index Total Protein Albumin Urine WBC (Auto) Salicylates Acetaminophen Plasma/Serum Alcohol 11/24/19 11/25/19 11/25/19 05:22 04:34 05:05 WBC 17.3 H RBC 2.88 L Hgb 7.8 L Hct 24.6 L MCH 27 L RDW 18.5 H Plt Count Lymph % (Auto) 7.7 L [place] % (Auto) 9.7 H [place] # 1.7 H Seg Neutrophils % 82.2 H Seg Neuts % (Manual) Lymphocytes % (Manual) Seg Neutrophils # 14.2 H Seg Neutrophils # Man Lymphocytes # (Manual) Monocytes # (Manual) PT INR APTT ABG pH 7.475 H ABG pO2 ABG HCO3 29.4 H 32.3 H ABG O2 Saturation ABG Base Excess 5.4 H 6.9 H ABG Hemoglobin 9.0 L 10.6 L Oxyhemoglobin 94.3 L Sodium Potassium Chloride Carbon Dioxide BUN Creatinine Glucose POC Glucose Lactic Acid Calcium Ionized Calcium Phosphorus Magnesium Total Bilirubin AST ALT Alkaline Phosphatase Ammonia Total Creatine Kinase CK-MB (CK-2) CK-MB (CK-2) Rel Index Total Protein Albumin Urine WBC (Auto) Salicylates Acetaminophen Plasma/Serum Alcohol 11/25/19 11/25/19 11/26/19 05:05 22:46 03:31 WBC RBC Hgb Hct MCH RDW Plt Count Lymph % (Auto) [place] % (Auto) [place] # Seg Neutrophils % Seg Neuts % (Manual) Lymphocytes % (Manual) Seg Neutrophils # Seg Neutrophils # Man Lymphocytes # (Manual) Monocytes # (Manual) PT INR APTT ABG pH 7.459 H ABG pO2 ABG HCO3 34.2 H ABG O2 Saturation ABG Base Excess 9.4 H ABG Hemoglobin 7.6 L Oxyhemoglobin 94.8 L Sodium 152 H D 147 H Potassium 2.3 L* D 2.8 L* D Chloride 107.8 H Carbon Dioxide 31 H D 33 H BUN Creatinine 0.6 L 0.6 L Glucose 148 H 177 H POC Glucose Lactic Acid Calcium Ionized Calcium Phosphorus Magnesium Total Bilirubin AST 105 H ALT 71 H Alkaline Phosphatase 155 H Ammonia Total Creatine Kinase CK-MB (CK-2) CK-MB (CK-2) Rel Index Total Protein 5.2 L D Albumin 2.9 L Urine WBC (Auto) Salicylates Acetaminophen Plasma/Serum Alcohol 11/26/19 11/26/19 11/27/19 08:24 08:24 04:20 WBC 12.0 H RBC 3.00 L Hgb 8.0 L 9.3 L Hct 25.9 L 29.7 L MCH 27 L RDW 18.5 H Plt Count Lymph % (Auto) [place] % (Auto) [place] # Seg Neutrophils % Seg Neuts % (Manual) 89.0 H Lymphocytes % (Manual) 4.0 L Seg Neutrophils # Seg Neutrophils # Man 10.7 H Lymphocytes # (Manual) 0.5 L Monocytes # (Manual) PT INR APTT ABG pH ABG pO2 ABG HCO3 ABG O2 Saturation ABG Base Excess ABG Hemoglobin Oxyhemoglobin Sodium 146 H Potassium 3.4 L D Chloride Carbon Dioxide BUN Creatinine 0.5 L Glucose 165 H POC Glucose Lactic Acid Calcium Ionized Calcium Phosphorus Magnesium Total Bilirubin AST 57 H ALT Alkaline Phosphatase 166 H Ammonia Total Creatine Kinase CK-MB (CK-2) CK-MB (CK-2) Rel Index Total Protein Albumin 2.9 L Urine WBC (Auto) Salicylates Acetaminophen Plasma/Serum Alcohol 11/27/19 11/27/19 11/27/19 04:28 04:28 04:42 WBC RBC Hgb Hct MCH RDW Plt Count Lymph % (Auto) [place] % (Auto) [place] # Seg Neutrophils % Seg Neuts % (Manual) Lymphocytes % (Manual) Seg Neutrophils # Seg Neutrophils # Man Lymphocytes # (Manual) Monocytes # (Manual) PT INR APTT ABG pH 7.470 H ABG pO2 74.0 L ABG HCO3 33.8 H ABG O2 Saturation ABG Base Excess 9.1 H ABG Hemoglobin 8.7 L Oxyhemoglobin 94.7 L Sodium 146 H Potassium 2.9 L* Chloride Carbon Dioxide BUN 25 H Creatinine Glucose 213 H POC Glucose Lactic Acid Calcium Ionized Calcium Phosphorus 1.00 L Magnesium Total Bilirubin AST ALT Alkaline Phosphatase Ammonia Total Creatine Kinase CK-MB (CK-2) CK-MB (CK-2) Rel Index Total Protein Albumin Urine WBC (Auto) Salicylates Acetaminophen Plasma/Serum Alcohol 11/27/19 11/27/19 11/27/19 05:37 12:20 15:46 WBC RBC Hgb Hct MCH RDW Plt Count Lymph % (Auto) [place] % (Auto) [place] # Seg Neutrophils % Seg Neuts % (Manual) Lymphocytes % (Manual) Seg Neutrophils # Seg Neutrophils # Man Lymphocytes # (Manual) Monocytes # (Manual) PT INR APTT ABG pH ABG pO2 ABG HCO3 ABG O2 Saturation ABG Base Excess ABG Hemoglobin Oxyhemoglobin Sodium 146 H Potassium 3.5 L D Chloride Carbon Dioxide BUN 24 H Creatinine 0.6 L Glucose 187 H POC Glucose 117 H 220 H Lactic Acid Calcium Ionized Calcium Phosphorus Magnesium Total Bilirubin AST ALT Alkaline Phosphatase Ammonia Total Creatine Kinase CK-MB (CK-2) CK-MB (CK-2) Rel Index Total Protein Albumin Urine WBC (Auto) Salicylates Acetaminophen Plasma/Serum Alcohol 11/27/19 11/28/19 11/28/19 17:28 05:00 05:02 WBC RBC Hgb Hct MCH RDW Plt Count Lymph % (Auto) [place] % (Auto) [place] # Seg Neutrophils % Seg Neuts % (Manual) Lymphocytes % (Manual) Seg Neutrophils # Seg Neutrophils # Man Lymphocytes # (Manual) Monocytes # (Manual) PT INR APTT ABG pH ABG pO2 72.4 L ABG HCO3 33.6 H ABG O2 Saturation 94.1 L ABG Base Excess 7.3 H ABG Hemoglobin Oxyhemoglobin 91.8 L Sodium 146 H Potassium 3.3 L Chloride Carbon Dioxide BUN 25 H Creatinine 0.6 L Glucose 176 H POC Glucose 198 H Lactic Acid Calcium Ionized Calcium Phosphorus Magnesium Total Bilirubin AST ALT Alkaline Phosphatase Ammonia Total Creatine Kinase CK-MB (CK-2) CK-MB (CK-2) Rel Index Total Protein Albumin Urine WBC (Auto) Salicylates Acetaminophen Plasma/Serum Alcohol 11/28/19 11/28/19 11/29/19 05:02 18:55 10:43 WBC 15.2 H 19.0 H RBC 3.06 L 3.01 L Hgb 8.3 L 8.3 L Hct 27.0 L 26.4 L MCH 27 L RDW 19.0 H 19.7 H Plt Count 479 H 611 H Lymph % (Auto) [place] % (Auto) [place] # Seg Neutrophils % Seg Neuts % (Manual) 92.0 H Lymphocytes % (Manual) 2.0 L Seg Neutrophils # Seg Neutrophils # Man 14.0 H Lymphocytes # (Manual) 0.3 L Monocytes # (Manual) PT INR APTT ABG pH ABG pO2 ABG HCO3 ABG O2 Saturation ABG Base Excess ABG Hemoglobin Oxyhemoglobin Sodium Potassium Chloride Carbon Dioxide BUN Creatinine Glucose POC Glucose 138 H Lactic Acid Calcium Ionized Calcium Phosphorus Magnesium Total Bilirubin AST ALT Alkaline Phosphatase Ammonia Total Creatine Kinase CK-MB (CK-2) CK-MB (CK-2) Rel Index Total Protein Albumin Urine WBC (Auto) Salicylates Acetaminophen Plasma/Serum Alcohol 11/29/19 11/29/19 11/29/19 10:43 12:27 19:25 WBC RBC Hgb Hct MCH RDW Plt Count Lymph % (Auto) [place] % (Auto) [place] # Seg Neutrophils % Seg Neuts % (Manual) Lymphocytes % (Manual) Seg Neutrophils # Seg Neutrophils # Man Lymphocytes # (Manual) Monocytes # (Manual) PT INR APTT ABG pH ABG pO2 ABG HCO3 ABG O2 Saturation ABG Base Excess ABG Hemoglobin Oxyhemoglobin Sodium Potassium 2.8 L* Chloride Carbon Dioxide BUN 20 H Creatinine 0.5 L Glucose 121 H POC Glucose 128 H 120 H Lactic Acid Calcium Ionized Calcium Phosphorus Magnesium Total Bilirubin AST ALT Alkaline Phosphatase Ammonia Total Creatine Kinase CK-MB (CK-2) CK-MB (CK-2) Rel Index Total Protein Albumin Urine WBC (Auto) Salicylates Acetaminophen Plasma/Serum Alcohol 11/29/19 11/30/19 11/30/19 23:46 04:10 05:02 WBC RBC Hgb Hct MCH RDW Plt Count Lymph % (Auto) [place] % (Auto) [place] # Seg Neutrophils % Seg Neuts % (Manual) Lymphocytes % (Manual) Seg Neutrophils # Seg Neutrophils # Man Lymphocytes # (Manual) Monocytes # (Manual) PT INR APTT ABG pH ABG pO2 76.3 L ABG HCO3 32.5 H ABG O2 Saturation ABG Base Excess 6.9 H ABG Hemoglobin 8.0 L Oxyhemoglobin 92.6 L Sodium Potassium Chloride Carbon Dioxide BUN Creatinine Glucose POC Glucose 116 H 128 H Lactic Acid Calcium Ionized Calcium Phosphorus Magnesium Total Bilirubin AST ALT Alkaline Phosphatase Ammonia Total Creatine Kinase CK-MB (CK-2) CK-MB (CK-2) Rel Index Total Protein Albumin Urine WBC (Auto) Salicylates Acetaminophen Plasma/Serum Alcohol 11/30/19 11/30/19 11/30/19 05:25 05:25 12:59 WBC 18.4 H RBC 3.10 L Hgb 8.5 L Hct 27.5 L MCH 27 L RDW 20.9 H Plt Count 691 H Lymph % (Auto) 7.1 L [place] % (Auto) 7.7 H [place] # 1.4 H Seg Neutrophils % 83.4 H Seg Neuts % (Manual) Lymphocytes % (Manual) Seg Neutrophils # 15.4 H Seg Neutrophils # Man Lymphocytes # (Manual) Monocytes # (Manual) PT INR APTT ABG pH ABG pO2 ABG HCO3 ABG O2 Saturation ABG Base Excess ABG Hemoglobin Oxyhemoglobin Sodium 146 H Potassium Chloride 107.2 H Carbon Dioxide BUN Creatinine 0.5 L Glucose 132 H POC Glucose 124 H Lactic Acid Calcium Ionized Calcium Phosphorus Magnesium Total Bilirubin AST 246 H ALT 274 H Alkaline Phosphatase 203 H Ammonia Total Creatine Kinase CK-MB (CK-2) CK-MB (CK-2) Rel Index Total Protein 5.4 L Albumin 2.9 L Urine WBC (Auto) Salicylates Acetaminophen Plasma/Serum Alcohol 11/30/19 12/01/19 12/01/19 17:53 00:05 05:10 WBC RBC Hgb Hct MCH RDW Plt Count Lymph % (Auto) [place] % (Auto) [place] # Seg Neutrophils % Seg Neuts % (Manual) Lymphocytes % (Manual) Seg Neutrophils # Seg Neutrophils # Man Lymphocytes # (Manual) Monocytes # (Manual) PT INR APTT ABG pH ABG pO2 ABG HCO3 ABG O2 Saturation ABG Base Excess ABG Hemoglobin Oxyhemoglobin Sodium Potassium Chloride Carbon Dioxide BUN Creatinine Glucose POC Glucose 113 H 143 H 145 H Lactic Acid Calcium Ionized Calcium Phosphorus Magnesium Total Bilirubin AST ALT Alkaline Phosphatase Ammonia Total Creatine Kinase CK-MB (CK-2) CK-MB (CK-2) Rel Index Total Protein Albumin Urine WBC (Auto) Salicylates Acetaminophen Plasma/Serum Alcohol 12/01/19 12/01/19 12/01/19 05:33 08:23 08:23 WBC 22.7 H RBC 2.88 L Hgb 7.9 L Hct 25.2 L MCH 27 L RDW 21.0 H Plt Count 732 H Lymph % (Auto) [place] % (Auto) [place] # Seg Neutrophils % Seg Neuts % (Manual) 91.0 H Lymphocytes % (Manual) 3.0 L Seg Neutrophils # Seg Neutrophils # Man 20.7 H Lymphocytes # (Manual) 0.7 L Monocytes # (Manual) 1.1 H PT INR APTT ABG pH ABG pO2 68.6 L ABG HCO3 34.1 H ABG O2 Saturation ABG Base Excess 9.0 H ABG Hemoglobin 6.5 L Oxyhemoglobin 94.7 L Sodium Potassium Chloride Carbon Dioxide BUN Creatinine 0.5 L Glucose 125 H POC Glucose Lactic Acid Calcium Ionized Calcium Phosphorus Magnesium Total Bilirubin AST ALT Alkaline Phosphatase Ammonia Total Creatine Kinase CK-MB (CK-2) CK-MB (CK-2) Rel Index Total Protein Albumin Urine WBC (Auto) Salicylates Acetaminophen Plasma/Serum Alcohol 12/01/19 12/01/19 12/01/19 13:21 17:54 20:59 WBC RBC Hgb Hct MCH RDW Plt Count Lymph % (Auto) [place] % (Auto) [place] # Seg Neutrophils % Seg Neuts % (Manual) Lymphocytes % (Manual) Seg Neutrophils # Seg Neutrophils # Man Lymphocytes # (Manual) Monocytes # (Manual) PT INR APTT ABG pH ABG pO2 78.3 L ABG HCO3 33.8 H ABG O2 Saturation 94.9 L ABG Base Excess 7.9 H ABG Hemoglobin 11.5 L Oxyhemoglobin 92.3 L Sodium Potassium Chloride Carbon Dioxide BUN Creatinine Glucose POC Glucose 111 H 115 H Lactic Acid Calcium Ionized Calcium Phosphorus Magnesium Total Bilirubin AST ALT Alkaline Phosphatase Ammonia Total Creatine Kinase CK-MB (CK-2) CK-MB (CK-2) Rel Index Total Protein Albumin Urine WBC (Auto) Salicylates Acetaminophen Plasma/Serum Alcohol 12/02/19 12/03/19 12/04/19 12:55 20:00 04:26 WBC 15.2 H RBC 2.69 L Hgb 7.4 L Hct 23.6 L MCH 27 L RDW 19.9 H Plt Count 838 H Lymph % (Auto) [place] % (Auto) [place] # Seg Neutrophils % Seg Neuts % (Manual) Lymphocytes % (Manual) Seg Neutrophils # Seg Neutrophils # Man Lymphocytes # (Manual) Monocytes # (Manual) PT INR APTT ABG pH ABG pO2 68.3 L ABG HCO3 33.5 H ABG O2 Saturation 93.5 L ABG Base Excess 8.4 H ABG Hemoglobin 7.3 L Oxyhemoglobin 90.9 L Sodium Potassium Chloride Carbon Dioxide BUN Creatinine Glucose POC Glucose 107 H Lactic Acid Calcium Ionized Calcium Phosphorus Magnesium Total Bilirubin AST ALT Alkaline Phosphatase Ammonia Total Creatine Kinase CK-MB (CK-2) CK-MB (CK-2) Rel Index Total Protein Albumin Urine WBC (Auto) Salicylates Acetaminophen Plasma/Serum Alcohol 12/04/19 12/04/19 12/04/19 04:26 07:45 12:02 WBC 15.9 H RBC 2.88 L Hgb 7.9 L Hct 25.1 L MCH RDW 20.4 H Plt Count 839 H Lymph % (Auto) 11.3 L [place] % (Auto) 15.2 H [place] # 2.4 H Seg Neutrophils % 72.4 H Seg Neuts % (Manual) Lymphocytes % (Manual) Seg Neutrophils # 11.5 H Seg Neutrophils # Man Lymphocytes # (Manual) Monocytes # (Manual) PT INR APTT ABG pH ABG pO2 ABG HCO3 ABG O2 Saturation ABG Base Excess ABG Hemoglobin Oxyhemoglobin Sodium Potassium Chloride 96.5 L Carbon Dioxide BUN 21 H Creatinine 0.6 L Glucose 107 H POC Glucose 138 H Lactic Acid Calcium Ionized Calcium Phosphorus Magnesium Total Bilirubin AST ALT Alkaline Phosphatase Ammonia Total Creatine Kinase CK-MB (CK-2) CK-MB (CK-2) Rel Index Total Protein Albumin Urine WBC (Auto) Salicylates Acetaminophen Plasma/Serum Alcohol 12/04/19 12/05/19 12/05/19 18:16 11:55 18:36 WBC RBC Hgb Hct MCH RDW Plt Count Lymph % (Auto) [place] % (Auto) [place] # Seg Neutrophils % Seg Neuts % (Manual) Lymphocytes % (Manual) Seg Neutrophils # Seg Neutrophils # Man Lymphocytes # (Manual) Monocytes # (Manual) PT INR APTT ABG pH ABG pO2 ABG HCO3 ABG O2 Saturation ABG Base Excess ABG Hemoglobin Oxyhemoglobin Sodium Potassium Chloride Carbon Dioxide BUN Creatinine Glucose POC Glucose 135 H 125 H 135 H Lactic Acid Calcium Ionized Calcium Phosphorus Magnesium Total Bilirubin AST ALT Alkaline Phosphatase Ammonia Total Creatine Kinase CK-MB (CK-2) CK-MB (CK-2) Rel Index Total Protein Albumin Urine WBC (Auto) Salicylates Acetaminophen Plasma/Serum Alcohol 12/05/19 12/06/19 12/06/19 23:30 04:14 05:43 WBC RBC Hgb Hct MCH RDW Plt Count Lymph % (Auto) [place] % (Auto) [place] # Seg Neutrophils % Seg Neuts % (Manual) Lymphocytes % (Manual) Seg Neutrophils # Seg Neutrophils # Man Lymphocytes # (Manual) Monocytes # (Manual) PT INR APTT ABG pH ABG pO2 ABG HCO3 ABG O2 Saturation ABG Base Excess ABG Hemoglobin Oxyhemoglobin Sodium Potassium 5.6 H Chloride 95.0 L Carbon Dioxide BUN 48 H Creatinine 1.3 H D Glucose POC Glucose 126 H 121 H Lactic Acid Calcium Ionized Calcium Phosphorus Magnesium Total Bilirubin AST 89 H ALT 98 H Alkaline Phosphatase 476 H Ammonia Total Creatine Kinase CK-MB (CK-2) CK-MB (CK-2) Rel Index Total Protein Albumin 2.8 L Urine WBC (Auto) Salicylates Acetaminophen Plasma/Serum Alcohol 12/06/19 12/06/19 12/07/19 10:39 14:34 00:19 WBC 17.3 H RBC 2.60 L Hgb 7.1 L Hct 22.7 L MCH 27 L RDW 20.1 H Plt Count 832 H Lymph % (Auto) [place] % (Auto) [place] # Seg Neutrophils % Seg Neuts % (Manual) Lymphocytes % (Manual) Seg Neutrophils # Seg Neutrophils # Man Lymphocytes # (Manual) Monocytes # (Manual) PT INR APTT ABG pH ABG pO2 ABG HCO3 ABG O2 Saturation ABG Base Excess ABG Hemoglobin Oxyhemoglobin Sodium Potassium Chloride Carbon Dioxide BUN Creatinine Glucose POC Glucose 128 H 136 H Lactic Acid Calcium Ionized Calcium Phosphorus Magnesium Total Bilirubin AST ALT Alkaline Phosphatase Ammonia Total Creatine Kinase CK-MB (CK-2) CK-MB (CK-2) Rel Index Total Protein Albumin Urine WBC (Auto) Salicylates Acetaminophen Plasma/Serum Alcohol 12/07/19 12/07/19 12/07/19 03:44 03:44 05:53 WBC 16.2 H RBC 2.56 L Hgb 7.1 L Hct 22.3 L MCH RDW 19.4 H Plt Count 782 H Lymph % (Auto) [place] % (Auto) [place] # Seg Neutrophils % Seg Neuts % (Manual) Lymphocytes % (Manual) Seg Neutrophils # Seg Neutrophils # Man Lymphocytes # (Manual) Monocytes # (Manual) PT INR APTT ABG pH ABG pO2 ABG HCO3 ABG O2 Saturation ABG Base Excess ABG Hemoglobin Oxyhemoglobin Sodium Potassium Chloride 95.6 L Carbon Dioxide BUN 56 H Creatinine 1.4 H Glucose 120 H POC Glucose 128 H Lactic Acid Calcium 10.3 H Ionized Calcium Phosphorus Magnesium Total Bilirubin AST ALT Alkaline Phosphatase Ammonia Total Creatine Kinase CK-MB (CK-2) CK-MB (CK-2) Rel Index Total Protein Albumin Urine WBC (Auto) Salicylates Acetaminophen Plasma/Serum Alcohol 12/07/19 12/07/19 12/08/19 12:54 23:47 00:20 WBC RBC Hgb Hct MCH RDW Plt Count Lymph % (Auto) [place] % (Auto) [place] # Seg Neutrophils % Seg Neuts % (Manual) Lymphocytes % (Manual) Seg Neutrophils # Seg Neutrophils # Man Lymphocytes # (Manual) Monocytes # (Manual) PT INR APTT ABG pH ABG pO2 ABG HCO3 ABG O2 Saturation ABG Base Excess ABG Hemoglobin Oxyhemoglobin Sodium Potassium Chloride Carbon Dioxide BUN Creatinine Glucose POC Glucose 128 H 130 H 124 H Lactic Acid Calcium Ionized Calcium Phosphorus Magnesium Total Bilirubin AST ALT Alkaline Phosphatase Ammonia Total Creatine Kinase CK-MB (CK-2) CK-MB (CK-2) Rel Index Total Protein Albumin Urine WBC (Auto) Salicylates Acetaminophen Plasma/Serum Alcohol 12/08/19 12/08/19 12/08/19 06:38 12:04 18:26 WBC RBC Hgb Hct MCH RDW Plt Count Lymph % (Auto) [place] % (Auto) [place] # Seg Neutrophils % Seg Neuts % (Manual) Lymphocytes % (Manual) Seg Neutrophils # Seg Neutrophils # Man Lymphocytes # (Manual) Monocytes # (Manual) PT INR APTT ABG pH ABG pO2 ABG HCO3 ABG O2 Saturation ABG Base Excess ABG Hemoglobin Oxyhemoglobin Sodium Potassium Chloride Carbon Dioxide BUN Creatinine Glucose POC Glucose 137 H 129 H 150 H Lactic Acid Calcium Ionized Calcium Phosphorus Magnesium Total Bilirubin AST ALT Alkaline Phosphatase Ammonia Total Creatine Kinase CK-MB (CK-2) CK-MB (CK-2) Rel Index Total Protein Albumin Urine WBC (Auto) Salicylates Acetaminophen Plasma/Serum Alcohol 12/09/19 12/09/19 12/09/19 00:56 05:34 06:13 WBC RBC Hgb Hct MCH RDW Plt Count Lymph % (Auto) [place] % (Auto) [place] # Seg Neutrophils % Seg Neuts % (Manual) Lymphocytes % (Manual) Seg Neutrophils # Seg Neutrophils # Man Lymphocytes # (Manual) Monocytes # (Manual) PT INR APTT ABG pH ABG pO2 ABG HCO3 ABG O2 Saturation ABG Base Excess ABG Hemoglobin Oxyhemoglobin Sodium 146 H Potassium Chloride Carbon Dioxide BUN 66 H Creatinine 1.9 H Glucose 116 H POC Glucose 130 H 130 H Lactic Acid Calcium Ionized Calcium Phosphorus Magnesium Total Bilirubin AST ALT Alkaline Phosphatase Ammonia Total Creatine Kinase CK-MB (CK-2) CK-MB (CK-2) Rel Index Total Protein Albumin Urine WBC (Auto) Salicylates Acetaminophen Plasma/Serum Alcohol 12/09/19 12/09/19 12/10/19 11:52 17:50 00:14 WBC RBC Hgb Hct MCH RDW Plt Count Lymph % (Auto) [place] % (Auto) [place] # Seg Neutrophils % Seg Neuts % (Manual) Lymphocytes % (Manual) Seg Neutrophils # Seg Neutrophils # Man Lymphocytes # (Manual) Monocytes # (Manual) PT INR APTT ABG pH ABG pO2 ABG HCO3 ABG O2 Saturation ABG Base Excess ABG Hemoglobin Oxyhemoglobin Sodium Potassium Chloride Carbon Dioxide BUN Creatinine Glucose POC Glucose 135 H 120 H 116 H Lactic Acid Calcium Ionized Calcium Phosphorus Magnesium Total Bilirubin AST ALT Alkaline Phosphatase Ammonia Total Creatine Kinase CK-MB (CK-2) CK-MB (CK-2) Rel Index Total Protein Albumin Urine WBC (Auto) Salicylates Acetaminophen Plasma/Serum Alcohol 12/10/19 12/10/19 12/10/19 05:38 11:38 17:34 WBC RBC Hgb Hct MCH RDW Plt Count Lymph % (Auto) [place] % (Auto) [place] # Seg Neutrophils % Seg Neuts % (Manual) Lymphocytes % (Manual) Seg Neutrophils # Seg Neutrophils # Man Lymphocytes # (Manual) Monocytes # (Manual) PT INR APTT ABG pH ABG pO2 ABG HCO3 ABG O2 Saturation ABG Base Excess ABG Hemoglobin Oxyhemoglobin Sodium Potassium Chloride Carbon Dioxide BUN Creatinine Glucose POC Glucose 115 H 112 H 130 H Lactic Acid Calcium Ionized Calcium Phosphorus Magnesium Total Bilirubin AST ALT Alkaline Phosphatase Ammonia Total Creatine Kinase CK-MB (CK-2) CK-MB (CK-2) Rel Index Total Protein Albumin Urine WBC (Auto) Salicylates Acetaminophen Plasma/Serum Alcohol 12/11/19 12/11/19 12/11/19 00:20 05:31 12:22 WBC RBC Hgb Hct MCH RDW Plt Count Lymph % (Auto) [place] % (Auto) [place] # Seg Neutrophils % Seg Neuts % (Manual) Lymphocytes % (Manual) Seg Neutrophils # Seg Neutrophils # Man Lymphocytes # (Manual) Monocytes # (Manual) PT INR APTT ABG pH ABG pO2 ABG HCO3 ABG O2 Saturation ABG Base Excess ABG Hemoglobin Oxyhemoglobin Sodium Potassium Chloride Carbon Dioxide BUN Creatinine Glucose POC Glucose 124 H 132 H 128 H Lactic Acid Calcium Ionized Calcium Phosphorus Magnesium Total Bilirubin AST ALT Alkaline Phosphatase Ammonia Total Creatine Kinase CK-MB (CK-2) CK-MB (CK-2) Rel Index Total Protein Albumin Urine WBC (Auto) Salicylates Acetaminophen Plasma/Serum Alcohol 12/11/19 12/11/19 12/12/19 18:04 23:42 03:51 WBC RBC Hgb Hct MCH RDW Plt Count Lymph % (Auto) [place] % (Auto) [place] # Seg Neutrophils % Seg Neuts % (Manual) Lymphocytes % (Manual) Seg Neutrophils # Seg Neutrophils # Man Lymphocytes # (Manual) Monocytes # (Manual) PT INR APTT ABG pH ABG pO2 ABG HCO3 ABG O2 Saturation ABG Base Excess ABG Hemoglobin Oxyhemoglobin Sodium 149 H Potassium Chloride Carbon Dioxide 20 L D BUN 77 H Creatinine 2.8 H Glucose POC Glucose 133 H 154 H Lactic Acid Calcium Ionized Calcium Phosphorus Magnesium Total Bilirubin AST ALT Alkaline Phosphatase Ammonia Total Creatine Kinase CK-MB (CK-2) CK-MB (CK-2) Rel Index Total Protein Albumin Urine WBC (Auto) Salicylates Acetaminophen Plasma/Serum Alcohol 12/12/19 12/12/19 12/12/19 05:18 05:26 11:44 WBC 18.0 H RBC 2.51 L Hgb 6.8 L Hct 22.0 L MCH 27 L RDW 19.9 H Plt Count 582 H Lymph % (Auto) [place] % (Auto) [place] # Seg Neutrophils % Seg Neuts % (Manual) Lymphocytes % (Manual) Seg Neutrophils # Seg Neutrophils # Man Lymphocytes # (Manual) Monocytes # (Manual) PT INR APTT ABG pH ABG pO2 ABG HCO3 ABG O2 Saturation ABG Base Excess ABG Hemoglobin Oxyhemoglobin Sodium Potassium Chloride Carbon Dioxide BUN Creatinine Glucose POC Glucose 135 H 108 H Lactic Acid Calcium Ionized Calcium Phosphorus Magnesium Total Bilirubin AST ALT Alkaline Phosphatase Ammonia Total Creatine Kinase CK-MB (CK-2) CK-MB (CK-2) Rel Index Total Protein Albumin Urine WBC (Auto) Salicylates Acetaminophen Plasma/Serum Alcohol Chest x-ray: image reviewed (12-10-2019- No acute pulmonary infiltrate, ETT in position) Allied health notes reviewed: RT
--- NOTE | 2019-12-12 14:26 | Event Note ---
Date: 12/05/19 New left lung infiltrate on post tracheosotmy placement images. Discussed with the Surgeon. Will get follow up CXR in the morning and if persistent will plan of therapeutic bronchosocpy
[2019-12-12] MEDS: SCOPOLAMINE TRANSDERMAL PATCH 72 HR TD SCH (17:35)
[2019-12-12] MEDS: MORPHINE 2 MG/1 ML INJ IV PRN (19:01)
[2019-12-12] MEDS: LORazepam 2 MG/ML VIAL IV PRN (20:06)
[2019-12-12] MEDS: QUEtiapine 100 MG TAB PO SCH (22:35)
[2019-12-12] MEDS: hydrALAZINE 20 MG/1 ML INJ IV PRN (23:18)
[2019-12-12] MEDS: ACETAMINOPHEN 325 MG/10.15 ML ORAL LIQD UNIT DOSE FEEDTUBE PRN (23:43)
--- NOTE | 2019-12-13 05:10 | XRay Report ---
CHEST 1 VIEW 12/13/2019 3:43 AM INDICATION / CLINICAL INFORMATION: Respiratory failure, left lung infiltrate. COMPARISON: 12/12/19 FINDINGS: SUPPORT DEVICES: Tracheostomy tube is unchanged. HEART / MEDIASTINUM: Stable. LUNGS / PLEURA: Improved aeration of the left lung with mild left basilar pleural-parenchymal density . No pneumothorax. ADDITIONAL FINDINGS: No significant additional findings. IMPRESSION: 1. Improved left lung aeration. Signer Name: Yulia Faith MD Signed: 12/13/2019 5:05 AM Workstation Name: [id number]
[2019-12-13] MEDS: LORazepam 2 MG/ML VIAL IV PRN (05:19)
[2019-12-13] MEDS: hydrALAZINE 20 MG/1 ML INJ IV PRN (05:19)
[2019-12-13] MEDS: ACETAMINOPHEN 325 MG/10.15 ML ORAL LIQD UNIT DOSE FEEDTUBE PRN ×2 (06:04→12:05)
[2019-12-13] MEDS: chlordiazePOXIDE 25 MG CAP PO SCH ×3 (06:05→22:13)
[2019-12-13] MEDS ORDERED: SODIUM CHLORIDE 0.9% 500 ML 500 ML IV ONE ×2 (08:00→11:00)
[2019-12-13 08:17] LABS: Hematocrit 20.9 % (30.3-42.9); Hemoglobin 6.3 gm/dl (10.1-14.3); Mean Corpuscular HGB Conc 30 % (30-34); Mean Corpuscular Volume 88 fl (79-97); Platelet Count 546 K/mm3 (140-440); Red Blood Count 2.37 M/mm3 (3.65-5.03)
[2019-12-13 08:26] LABS: Red Cell Distribution Width 20.2 % (13.2-15.2)
[2019-12-13 08:29] LABS: Albumin 2.4 g/dL (3.9-5); Calcium 9.1 mg/dL (8.4-10.2)
[2019-12-13] MEDS: hydrOXYzine PAMOATE 25 MG CAP PO SCH ×2 (09:22→22:13)
[2019-12-13] MEDS: LACTULOSE 20 GM/30 ML ORAL LIQD PO SCH ×2 (09:22→22:14)
[2019-12-13] MEDS: MIRTAZAPINE 30 MG TAB PO SCH (09:22)
[2019-12-13] MEDS: levETIRAcetam 500 MG/5 ML ORAL LIQD PO SCH ×2 (09:22→22:13)
[2019-12-13] MEDS: LANSOPRAZOLE 30 MG SOLUTAB FEEDTUBE SCH (09:22)
[2019-12-13] MEDS: SERTRALINE 25 MG TAB PO SCH (09:23)
[2019-12-13] MEDS: SENNOSIDES/DOCUSATE SODIUM 8.6/50 MG TAB PO SCH ×2 (09:23→22:14)
[2019-12-13] MEDS: HEPARIN 5,000 UNIT/1 ML VIAL SUB-Q SCH ×2 (09:23→22:26)
--- NOTE | 2019-12-13 12:19 | Progress Note ---
Assessment and Plan 54-year-old female status post bedside tracheostomy and PEG tube placement, postop day 1 1. VDRF CXR (images and report reviewed): improvement in left lung aeration Plan: 1. continue TF to goal 2. vent management per ICU team 3. monitor for further fevers 4. WBC 38 from 18 -> ?etiology. Recommend trending to ensure WBC trends down 5. tracheostomy care per protocol Will s/o. Thank you, please call with questions. Subjective Date of service: 12/13/19 Narrative: Patient seen and examined. She was febrile overnight to T-max of 102 with tachycardia. She responded appropriately to Tylenol and a small fluid bolus. Patient has been tolerating tube feeds and is on minimal vent settings. Objective Vital Signs - 12hr 12/13/19 12/13/19 12/13/19 00:23 00:50 01:00 Temperature Pulse Rate 124 H 121 H 121 H Pulse Rate [ From Monitor] Respiratory 17 Rate Blood Pressure 109/67 109/67 O2 Sat by Pulse 100 Oximetry O2 Sat by Pulse Oximetry [ Assessment] 12/13/19 12/13/19 12/13/19 02:00 03:00 04:00 Temperature 99.8 F H Pulse Rate 116 H 125 H 129 H Pulse Rate [ 129 H From Monitor] Respiratory 18 25 H 21 Rate Blood Pressure 118/70 142/83 150/88 O2 Sat by Pulse 91 100 Oximetry O2 Sat by Pulse Oximetry [ Assessment] 12/13/19 12/13/19 12/13/19 04:41 04:45 04:56 Temperature Pulse Rate 130 H 130 H Pulse Rate [ From Monitor] Respiratory 20 Rate Blood Pressure 159/91 160/93 O2 Sat by Pulse 99 100 Oximetry O2 Sat by Pulse 100 Oximetry [ Assessment] 12/13/19 12/13/19 12/13/19 05:00 05:15 05:30 Temperature Pulse Rate 132 H 131 H 132 H Pulse Rate [ From Monitor] Respiratory 29 H 27 H 21 Rate Blood Pressure 159/93 163/95 149/87 O2 Sat by Pulse 90 97 100 Oximetry O2 Sat by Pulse Oximetry [ Assessment] 12/13/19 12/13/19 12/13/19 05:45 06:00 06:15 Temperature Pulse Rate 149 H 148 H Pulse Rate [ From Monitor] Respiratory 31 H 22 Rate Blood Pressure 153/93 160/94 159/84 O2 Sat by Pulse 100 85 100 Oximetry O2 Sat by Pulse Oximetry [ Assessment] 12/13/19 12/13/19 12/13/19 06:30 06:45 06:46 Temperature 102.6 F H Pulse Rate 138 H 133 H Pulse Rate [ From Monitor] Respiratory 26 H 22 Rate Blood Pressure 123/70 123/70 O2 Sat by Pulse 99 97 Oximetry O2 Sat by Pulse Oximetry [ Assessment] 12/13/19 12/13/19 12/13/19 07:00 07:15 07:30 Temperature Pulse Rate 125 H 121 H 116 H Pulse Rate [ From Monitor] Respiratory 22 19 18 Rate Blood Pressure 106/54 100/51 103/52 O2 Sat by Pulse 99 99 100 Oximetry O2 Sat by Pulse Oximetry [ Assessment] 12/13/19 12/13/19 12/13/19 07:46 08:00 08:16 Temperature Pulse Rate 117 H 113 H 114 H Pulse Rate [ 114 H From Monitor] Respiratory 19 16 16 Rate Blood Pressure 103/52 103/52 103/52 O2 Sat by Pulse 100 100 100 Oximetry O2 Sat by Pulse Oximetry [ Assessment] 12/13/19 12/13/19 12/13/19 08:21 08:30 08:45 Temperature Pulse Rate 115 H 115 H 119 H Pulse Rate [ From Monitor] Respiratory 19 24 Rate Blood Pressure 103/52 149/87 O2 Sat by Pulse 100 100 100 Oximetry O2 Sat by Pulse Oximetry [ Assessment] 12/13/19 12/13/19 12/13/19 09:00 09:15 09:30 Temperature Pulse Rate 122 H 119 H 122 H Pulse Rate [ From Monitor] Respiratory 25 H 20 23 Rate Blood Pressure 147/93 147/85 149/88 O2 Sat by Pulse 99 99 100 Oximetry O2 Sat by Pulse Oximetry [ Assessment] 12/13/19 12/13/19 12/13/19 09:45 10:00 10:15 Temperature Pulse Rate 122 H 127 H 132 H Pulse Rate [ From Monitor] Respiratory 18 25 H 23 Rate Blood Pressure 141/79 149/81 148/85 O2 Sat by Pulse 99 99 99 Oximetry O2 Sat by Pulse Oximetry [ Assessment] 12/13/19 12/13/19 12/13/19 10:30 10:45 11:00 Temperature 99.3 F Pulse Rate 133 H 131 H 130 H Pulse Rate [ From Monitor] Respiratory 21 22 30 H Rate Blood Pressure 137/95 140/89 148/84 O2 Sat by Pulse 99 99 99 Oximetry O2 Sat by Pulse Oximetry [ Assessment] 12/13/19 12/13/19 12/13/19 11:14 11:15 11:29 Temperature 99.3 F 99.3 F Pulse Rate 128 H 129 H 126 H Pulse Rate [ From Monitor] Respiratory 20 29 H 16 Rate Blood Pressure 154/89 153/89 152/90 O2 Sat by Pulse 99 99 99 Oximetry O2 Sat by Pulse Oximetry [ Assessment] 12/13/19 11:59 Temperature 101.5 F H Pulse Rate 125 H Pulse Rate [ From Monitor] Respiratory 20 Rate Blood Pressure 152/83 O2 Sat by Pulse 97 Oximetry O2 Sat by Pulse Oximetry [ Assessment] - General physical appearance Narrative Exam: General: Intubated, on vent. ENT: Tracheostomy tube in place. No bleeding, swelling. Site is clean, dry, intact CV: S1, S2 present. Tachycardia Respiratory: No wheezes Abdomen: Soft, mildly distended(baseline), nontender. The PEG tube is in place and the outer bumper is at 3 cm. There is no tension. Tube feeds are running. - Labs 12/13/19 07:48 12/13/19 07:48 Diabetes panel 12/13/19 Range/Units 07:48 Sodium 152 H (137-145) mmol/L Potassium 3.1 L D (3.6-5.0) mmol/L Chloride 111.9 H (98-107) mmol/L Carbon Dioxide 21 L (22-30) mmol/L BUN 53 H (7-17) mg/dL Creatinine 1.9 H (0.7-1.2) mg/dL Glucose 141 H (65-100) mg/dL Calcium 9.1 (8.4-10.2) mg/dL AST 27 (5-40) units/L ALT 26 (7-56) units/L Alkaline Phosphatase 316 H (35-129) units/L Total Protein 6.8 (6.3-8.2) g/dL Albumin 2.4 L (3.9-5) g/dL Calcium panel 12/13/19 Range/Units 07:48 Calcium 9.1 (8.4-10.2) mg/dL Albumin 2.4 L (3.9-5) g/dL Pituitary panel 12/13/19 Range/Units 07:48 Sodium 152 H (137-145) mmol/L Potassium 3.1 L D (3.6-5.0) mmol/L Chloride 111.9 H (98-107) mmol/L Carbon Dioxide 21 L (22-30) mmol/L BUN 53 H (7-17) mg/dL Creatinine 1.9 H (0.7-1.2) mg/dL Glucose 141 H (65-100) mg/dL Calcium 9.1 (8.4-10.2) mg/dL Adrenal panel 12/13/19 Range/Units 07:48 Sodium 152 H (137-145) mmol/L Potassium 3.1 L D (3.6-5.0) mmol/L Chloride 111.9 H (98-107) mmol/L Carbon Dioxide 21 L (22-30) mmol/L BUN 53 H (7-17) mg/dL Creatinine 1.9 H (0.7-1.2) mg/dL Glucose 141 H (65-100) mg/dL Calcium 9.1 (8.4-10.2) mg/dL Total Bilirubin 0.40 (0.1-1.2) mg/dL AST 27 (5-40) units/L ALT 26 (7-56) units/L Alkaline Phosphatase 316 H (35-129) units/L Total Protein 6.8 (6.3-8.2) g/dL Albumin 2.4 L (3.9-5) g/dL
[2019-12-13 12:31] LABS: Band Neutrophils # (Manual) 1.1 K/mm3; Total Cells Counted 100
[2019-12-13 12:32] LABS: Anisocytosis 1+; Hypochromasia 1+; Macrocytosis Few; Platelet Estimate Consistent w Auto
--- NOTE | 2019-12-13 13:34 | Progress Note ---
Assessment and Plan Acute cardiopulmonary arrest with ROSC Acute hypoxemic respiratory failure on MVS Acute metabolic-toxic encephalopathy Metabolic acidosis/alcoholic acidosis/Lactic acidosis Ischemic hepatitis Leucocytosis with lactic acidosis Tobacco use disorder ALcohol use Disorder Hypokalemia High grade fevers - follow C&S - RN to notify ID of fevers - increased free water to 250 ml's q4h re: hypernatremia - BMP in am - continue Reglan for G.I. motility - continue bronchodilators with routine trach care and pulmonary hygiene per RT - VAP bundle addressed (continue aspiration precautions, HOB>40) - ontinue daily SAT's and assessment for readiness for SBT (For PSV trial today) - continue to rest on AC mode qhs - continue Seroquel for tentative delirium and to spare IV sedation - continue Librium but increase to 75 mg po q8h - s/p empiric Antibiotics per ID recommendations; de-escalate based on HILARIO /sensitivities / clinical progress - s/p CIWA protocol - Continue Intermittent sedation until patient's neurologic state can be better evaluated - begin Seroquel for agitation / to spare IV sedatives - Continue VTE and Stress ulcer prophylaxis - Continue enteric nutritional support. Monitor glycemic control, with target blood glucose 140-180 mg/dL while critically ill (Avoid hypoglycemia) - Continue daily SAT assessment as tolerated - Continue to wean supplemental oxygen for target O2 sat's > 90% - ABG and CXR prn - Continue to trend leukocytosis and lactic acidosis - Continue to treat for hepatic encephalopathy- especially with elevated ammonia levels- lactulose - Continue thiamine, multivitamin and electrolyte replacement - Continue to avoid nephrotoxins, adjust all medications fro GFR and CrCL - Continue to avoid benzodiazepines , as much as possible, to reduce the possibility of delirium - Continue prn analgesia per CPOT score - Continue to maintain of sleep-wake cycle, avoid delirium - PT/OT/ROM exercises- awaiting PT/OT evaluation - Continue mobility protocol and skin assessment per protocol for pressure ulcer prevention - Continue to monitor for clinical seizures - Continue Nicotine withdrawal precautions, alcohol withdrawal precautions - continue other care per attending / other consultants ..... re-evaluate in am & prn CONDITION: CRITICAL PROGNOSIS: GUARDED CODE STATUS: FULL CODE The high probability of a clinically significant, sudden or life-threatening deterioration of the [respiratory, cardiovascular,GI/hepatology] system(s) required my full and direct attention, intervention and personal management. The aggregate critical care time was [32] minutes without overlap. Time includes spent on; [x] Data Review and interpretation [x] Patient assessment and monitoring of vital signs [x] Documentation [x] Medication orders and management Subjective Date of service: 12/13/19 Principal diagnosis: Ac cardiopulmonary arrest; Ac hypoxemic resp failure; Acute encephalopathy Interval history: Patient is seen today for: Acute cardiopulmonary arrest with ROSC; Acute hypoxemic respiratory failure; Acute metabolic-toxic encephalopathy; Ischemic hepatitis; Leucocytosis with lactic acidosis; Tobacco use disorder; Alcohol use Disorder; Hypokalemia; High grade fevers Seen and examined at bedside; 24hour events reviewed; nursing and respiratory care staff consulted; no adverse overnight events reported to me; resting peacefully in bed; running some fevers > 101F and BC's drawn; no clinical VTE noted; AMS is persistent. Objective Vital Signs - 12hr 12/13/19 12/13/19 12/13/19 02:00 03:00 04:00 Temperature 99.8 F H Pulse Rate 116 H 125 H 129 H Pulse Rate [ 129 H From Monitor] Respiratory 18 25 H 21 Rate Blood Pressure 118/70 142/83 150/88 O2 Sat by Pulse 91 100 Oximetry O2 Sat by Pulse Oximetry [ Assessment] 12/13/19 12/13/19 12/13/19 04:41 04:45 04:56 Temperature Pulse Rate 130 H 130 H Pulse Rate [ From Monitor] Respiratory 20 Rate Blood Pressure 159/91 160/93 O2 Sat by Pulse 99 100 Oximetry O2 Sat by Pulse 100 Oximetry [ Assessment] 12/13/19 12/13/19 12/13/19 05:00 05:15 05:30 Temperature Pulse Rate 132 H 131 H 132 H Pulse Rate [ From Monitor] Respiratory 29 H 27 H 21 Rate Blood Pressure 159/93 163/95 149/87 O2 Sat by Pulse 90 97 100 Oximetry O2 Sat by Pulse Oximetry [ Assessment] 12/13/19 12/13/19 12/13/19 05:45 06:00 06:15 Temperature Pulse Rate 149 H 148 H Pulse Rate [ From Monitor] Respiratory 31 H 22 Rate Blood Pressure 153/93 160/94 159/84 O2 Sat by Pulse 100 85 100 Oximetry O2 Sat by Pulse Oximetry [ Assessment] 12/13/19 12/13/19 12/13/19 06:30 06:45 06:46 Temperature 102.6 F H Pulse Rate 138 H 133 H Pulse Rate [ From Monitor] Respiratory 26 H 22 Rate Blood Pressure 123/70 123/70 O2 Sat by Pulse 99 97 Oximetry O2 Sat by Pulse Oximetry [ Assessment] 12/13/19 12/13/19 12/13/19 07:00 07:15 07:30 Temperature Pulse Rate 125 H 121 H 116 H Pulse Rate [ From Monitor] Respiratory 22 19 18 Rate Blood Pressure 106/54 100/51 103/52 O2 Sat by Pulse 99 99 100 Oximetry O2 Sat by Pulse Oximetry [ Assessment] 12/13/19 12/13/19 12/13/19 07:46 08:00 08:16 Temperature Pulse Rate 117 H 113 H 114 H Pulse Rate [ 114 H From Monitor] Respiratory 19 16 16 Rate Blood Pressure 103/52 103/52 103/52 O2 Sat by Pulse 100 100 100 Oximetry O2 Sat by Pulse Oximetry [ Assessment] 12/13/19 12/13/19 12/13/19 08:21 08:30 08:45 Temperature Pulse Rate 115 H 115 H 119 H Pulse Rate [ From Monitor] Respiratory 19 24 Rate Blood Pressure 103/52 149/87 O2 Sat by Pulse 100 100 100 Oximetry O2 Sat by Pulse Oximetry [ Assessment] 12/13/19 12/13/19 12/13/19 09:00 09:15 09:30 Temperature Pulse Rate 122 H 119 H 122 H Pulse Rate [ From Monitor] Respiratory 25 H 20 23 Rate Blood Pressure 147/93 147/85 149/88 O2 Sat by Pulse 99 99 100 Oximetry O2 Sat by Pulse Oximetry [ Assessment] 12/13/19 12/13/19 12/13/19 09:45 10:00 10:15 Temperature Pulse Rate 122 H 127 H 132 H Pulse Rate [ 127 H From Monitor] Respiratory 18 25 H 23 Rate Blood Pressure 141/79 149/81 148/85 O2 Sat by Pulse 99 99 99 Oximetry O2 Sat by Pulse Oximetry [ Assessment] 12/13/19 12/13/19 12/13/19 10:30 10:45 11:00 Temperature 99.3 F Pulse Rate 133 H 131 H 130 H Pulse Rate [ From Monitor] Respiratory 21 22 30 H Rate Blood Pressure 137/95 140/89 148/84 O2 Sat by Pulse 99 99 99 Oximetry O2 Sat by Pulse Oximetry [ Assessment] 12/13/19 12/13/19 12/13/19 11:14 11:15 11:29 Temperature 99.3 F 99.3 F Pulse Rate 128 H 129 H 126 H Pulse Rate [ From Monitor] Respiratory 20 29 H 16 Rate Blood Pressure 154/89 153/89 152/90 O2 Sat by Pulse 99 99 99 Oximetry O2 Sat by Pulse Oximetry [ Assessment] 12/13/19 12/13/19 12/13/19 11:30 11:45 11:59 Temperature 101.5 F H Pulse Rate 125 H 127 H 125 H Pulse Rate [ From Monitor] Respiratory 26 H 22 20 Rate Blood Pressure 152/90 149/84 152/83 O2 Sat by Pulse 99 99 97 Oximetry O2 Sat by Pulse Oximetry [ Assessment] 12/13/19 12/13/19 12/13/19 12:00 12:15 12:30 Temperature Pulse Rate 123 H 124 H 122 H Pulse Rate [ 125 H From Monitor] Respiratory 22 25 H 23 Rate Blood Pressure 152/83 151/85 128/66 O2 Sat by Pulse 100 98 96 Oximetry O2 Sat by Pulse Oximetry [ Assessment] 12/13/19 12/13/19 12:45 13:00 Temperature Pulse Rate 124 H 123 H Pulse Rate [ From Monitor] Respiratory 20 22 Rate Blood Pressure 141/74 135/74 O2 Sat by Pulse 97 97 Oximetry O2 Sat by Pulse Oximetry [ Assessment] Constitutional: no acute distress, other (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, orally intuabted ETT at 23 cm at the lip to mVS, mild dys-synchrony) Eyes: non-icteric ENT: oropharynx moist, other (s/p trach) Neck: supple, no lymphadenopathy, no JVD Effort: mildly labored Ascultation: Bilateral: diminished breath sounds, rhonchi Percussion: Bilateral: not dull Cardiovascular: regular rate and rhythm (tachycardia), other (S1,S2) Gastrointestinal: normoactive bowel sounds, soft, non-tender, non-distended Integumentary: normal Extremities: no cyanosis, no edema, pulses normal, no ischemia or petechiae Neurologic: unable to assess, other (awake but not tracking voice ) Psychiatric: other (Psychiatric: Unable to assess) CBC and BMP: 12/14/19 08:48 12/14/19 10:31 ABG, PT/INR, D-dimer: ABG ABG pH 7.437 pH Units (7.350-7.450) 12/03/19 20:00 ABG pCO2 50.7 mm Hg 12/03/19 20:00 ABG pO2 68.3 mm Hg (80.0-90.0) L 12/03/19 20:00 ABG O2 Saturation 93.5 % (95.0-99.0) L 12/03/19 20:00 PT/INR, D-dimer PT 17.0 Sec. (12.2-14.9) H 11/23/19 03:47 INR 1.36 (0.87-1.13) H 11/23/19 03:47 Abnormal lab findings: Abnormal Labs 11/22/19 11/22/19 11/22/19 23:17 23:18 23:27 WBC 21.2 H RBC 3.59 L Hgb 9.8 L Hct MCH 27 L RDW 18.6 H Plt Count 454 H Lymph % (Auto) [place] % (Auto) [place] # Seg Neutrophils % Seg Neuts % (Manual) 86.0 H Lymphocytes % (Manual) 9.0 L Seg Neutrophils # Seg Neutrophils # Man 18.2 H Lymphocytes # (Manual) Monocytes # (Manual) 1.1 H Basophils # (Manual) PT INR APTT ABG pH ABG pO2 ABG HCO3 ABG O2 Saturation ABG Base Excess ABG Hemoglobin Oxyhemoglobin Sodium Potassium Chloride Carbon Dioxide BUN Creatinine Glucose POC Glucose 53 L Lactic Acid Calcium Ionized Calcium Phosphorus Magnesium Total Bilirubin AST ALT Alkaline Phosphatase Ammonia Total Creatine Kinase CK-MB (CK-2) CK-MB (CK-2) Rel Index Total Protein Albumin Urine WBC (Auto) 40.0 H Salicylates Acetaminophen Plasma/Serum Alcohol Crossmatch 11/22/19 11/22/19 11/22/19 23:27 23:27 23:27 WBC RBC Hgb Hct MCH RDW Plt Count Lymph % (Auto) [place] % (Auto) [place] # Seg Neutrophils % Seg Neuts % (Manual) Lymphocytes % (Manual) Seg Neutrophils # Seg Neutrophils # Man Lymphocytes # (Manual) Monocytes # (Manual) Basophils # (Manual) PT INR APTT ABG pH ABG pO2 ABG HCO3 ABG O2 Saturation ABG Base Excess ABG Hemoglobin Oxyhemoglobin Sodium Potassium 2.4 L* Chloride 85.1 L Carbon Dioxide 19 L BUN Creatinine 0.5 L Glucose 261 H POC Glucose Lactic Acid Calcium Ionized Calcium Phosphorus Magnesium Total Bilirubin AST 609 H ALT 152 H Alkaline Phosphatase 160 H Ammonia 117.0 H Total Creatine Kinase 139 H CK-MB (CK-2) 8.3 H CK-MB (CK-2) Rel Index 5.9 H Total Protein Albumin 3.6 L Urine WBC (Auto) Salicylates < 0.3 L Acetaminophen Plasma/Serum Alcohol Crossmatch 11/22/19 11/22/19 11/23/19 23:27 23:27 01:10 WBC RBC Hgb Hct MCH RDW Plt Count Lymph % (Auto) [place] % (Auto) [place] # Seg Neutrophils % Seg Neuts % (Manual) Lymphocytes % (Manual) Seg Neutrophils # Seg Neutrophils # Man Lymphocytes # (Manual) Monocytes # (Manual) Basophils # (Manual) PT INR APTT ABG pH 7.273 L ABG pO2 209.7 H ABG HCO3 ABG O2 Saturation 99.2 H ABG Base Excess -3.9 L ABG Hemoglobin 10.6 L Oxyhemoglobin 93.9 L Sodium Potassium Chloride Carbon Dioxide BUN Creatinine Glucose POC Glucose Lactic Acid Calcium Ionized Calcium Phosphorus Magnesium Total Bilirubin AST ALT Alkaline Phosphatase Ammonia Total Creatine Kinase CK-MB (CK-2) CK-MB (CK-2) Rel Index Total Protein Albumin Urine WBC (Auto) Salicylates Acetaminophen < 5.0 L Plasma/Serum Alcohol 0.08 H Crossmatch 11/23/19 11/23/19 11/23/19 01:19 01:19 03:47 WBC RBC Hgb Hct MCH RDW Plt Count Lymph % (Auto) [place] % (Auto) [place] # Seg Neutrophils % Seg Neuts % (Manual) Lymphocytes % (Manual) Seg Neutrophils # Seg Neutrophils # Man Lymphocytes # (Manual) Monocytes # (Manual) Basophils # (Manual) PT 16.3 H INR 1.29 H APTT ABG pH ABG pO2 ABG HCO3 ABG O2 Saturation ABG Base Excess ABG Hemoglobin Oxyhemoglobin Sodium Potassium Chloride Carbon Dioxide BUN Creatinine Glucose POC Glucose Lactic Acid 2.10 H* 5.00 H* Calcium Ionized Calcium Phosphorus Magnesium Total Bilirubin AST ALT Alkaline Phosphatase Ammonia Total Creatine Kinase CK-MB (CK-2) CK-MB (CK-2) Rel Index Total Protein Albumin Urine WBC (Auto) Salicylates Acetaminophen Plasma/Serum Alcohol Crossmatch 03/06/20 03/06/20 03/06/20 03:47 03:47 04:53 WBC RBC Hgb 9.4 L Hct MCH RDW Plt Count Lymph % (Auto) [place] % (Auto) [place] # Seg Neutrophils % Seg Neuts % (Manual) Lymphocytes % (Manual) Seg Neutrophils # Seg Neutrophils # Man Lymphocytes # (Manual) Monocytes # (Manual) Basophils # (Manual) PT 17.0 H INR 1.36 H APTT 128.2 H* ABG pH ABG pO2 ABG HCO3 ABG O2 Saturation ABG Base Excess ABG Hemoglobin Oxyhemoglobin Sodium Potassium Chloride Carbon Dioxide 18 L BUN Creatinine 0.5 L Glucose 105 H POC Glucose Lactic Acid Calcium 8.3 L Ionized Calcium Phosphorus 2.40 L Magnesium Total Bilirubin 1.30 H AST 761 H ALT 158 H Alkaline Phosphatase 143 H Ammonia Total Creatine Kinase CK-MB (CK-2) CK-MB (CK-2) Rel Index Total Protein Albumin 2.8 L Urine WBC (Auto) Salicylates Acetaminophen Plasma/Serum Alcohol Crossmatch 11/23/19 11/23/19 11/23/19 05:12 06:32 06:32 WBC 16.8 H RBC 3.31 L Hgb 8.9 L Hct 28.7 L MCH 27 L RDW 18.6 H Plt Count Lymph % (Auto) [place] % (Auto) [place] # Seg Neutrophils % Seg Neuts % (Manual) 94.0 H Lymphocytes % (Manual) 1.0 L Seg Neutrophils # Seg Neutrophils # Man 15.8 H Lymphocytes # (Manual) 0.2 L Monocytes # (Manual) Basophils # (Manual) PT INR APTT ABG pH ABG pO2 ABG HCO3 ABG O2 Saturation ABG Base Excess -3.2 L ABG Hemoglobin 9.0 L Oxyhemoglobin 93.6 L Sodium Potassium Chloride Carbon Dioxide BUN Creatinine Glucose POC Glucose Lactic Acid Calcium Ionized Calcium 4.5 L Phosphorus Magnesium Total Bilirubin AST ALT Alkaline Phosphatase Ammonia Total Creatine Kinase CK-MB (CK-2) CK-MB (CK-2) Rel Index Total Protein Albumin Urine WBC (Auto) Salicylates Acetaminophen Plasma/Serum Alcohol Crossmatch 11/23/19 11/24/19 11/24/19 06:32 04:35 04:35 WBC RBC Hgb Hct MCH RDW Plt Count Lymph % (Auto) [place] % (Auto) [place] # Seg Neutrophils % Seg Neuts % (Manual) Lymphocytes % (Manual) Seg Neutrophils # Seg Neutrophils # Man Lymphocytes # (Manual) Monocytes # (Manual) Basophils # (Manual) PT INR APTT ABG pH ABG pO2 ABG HCO3 ABG O2 Saturation ABG Base Excess ABG Hemoglobin Oxyhemoglobin Sodium Potassium Chloride Carbon Dioxide BUN Creatinine Glucose POC Glucose Lactic Acid 3.30 H* Calcium Ionized Calcium Phosphorus Magnesium 1.40 L Total Bilirubin AST ALT Alkaline Phosphatase Ammonia 98.0 H Total Creatine Kinase CK-MB (CK-2) CK-MB (CK-2) Rel Index Total Protein Albumin Urine WBC (Auto) Salicylates Acetaminophen Plasma/Serum Alcohol Crossmatch 11/24/19 11/25/19 11/25/19 05:22 04:34 05:05 WBC 17.3 H RBC 2.88 L Hgb 7.8 L Hct 24.6 L MCH 27 L RDW 18.5 H Plt Count Lymph % (Auto) 7.7 L [place] % (Auto) 9.7 H [place] # 1.7 H Seg Neutrophils % 82.2 H Seg Neuts % (Manual) Lymphocytes % (Manual) Seg Neutrophils # 14.2 H Seg Neutrophils # Man Lymphocytes # (Manual) Monocytes # (Manual) Basophils # (Manual) PT INR APTT ABG pH 7.475 H ABG pO2 ABG HCO3 29.4 H 32.3 H ABG O2 Saturation ABG Base Excess 5.4 H 6.9 H ABG Hemoglobin 9.0 L 10.6 L Oxyhemoglobin 94.3 L Sodium Potassium Chloride Carbon Dioxide BUN Creatinine Glucose POC Glucose Lactic Acid Calcium Ionized Calcium Phosphorus Magnesium Total Bilirubin AST ALT Alkaline Phosphatase Ammonia Total Creatine Kinase CK-MB (CK-2) CK-MB (CK-2) Rel Index Total Protein Albumin Urine WBC (Auto) Salicylates Acetaminophen Plasma/Serum Alcohol Crossmatch 11/25/19 11/25/19 11/26/19 05:05 22:46 03:31 WBC RBC Hgb Hct MCH RDW Plt Count Lymph % (Auto) [place] % (Auto) [place] # Seg Neutrophils % Seg Neuts % (Manual) Lymphocytes % (Manual) Seg Neutrophils # Seg Neutrophils # Man Lymphocytes # (Manual) Monocytes # (Manual) Basophils # (Manual) PT INR APTT ABG pH 7.459 H ABG pO2 ABG HCO3 34.2 H ABG O2 Saturation ABG Base Excess 9.4 H ABG Hemoglobin 7.6 L Oxyhemoglobin 94.8 L Sodium 152 H D 147 H Potassium 2.3 L* D 2.8 L* D Chloride 107.8 H Carbon Dioxide 31 H D 33 H BUN Creatinine 0.6 L 0.6 L Glucose 148 H 177 H POC Glucose Lactic Acid Calcium Ionized Calcium Phosphorus Magnesium Total Bilirubin AST 105 H ALT 71 H Alkaline Phosphatase 155 H Ammonia Total Creatine Kinase CK-MB (CK-2) CK-MB (CK-2) Rel Index Total Protein 5.2 L D Albumin 2.9 L Urine WBC (Auto) Salicylates Acetaminophen Plasma/Serum Alcohol Crossmatch 11/26/19 11/26/19 11/27/19 08:24 08:24 04:20 WBC 12.0 H RBC 3.00 L Hgb 8.0 L 9.3 L Hct 25.9 L 29.7 L MCH 27 L RDW 18.5 H Plt Count Lymph % (Auto) [place] % (Auto) [place] # Seg Neutrophils % Seg Neuts % (Manual) 89.0 H Lymphocytes % (Manual) 4.0 L Seg Neutrophils # Seg Neutrophils # Man 10.7 H Lymphocytes # (Manual) 0.5 L Monocytes # (Manual) Basophils # (Manual) PT INR APTT ABG pH ABG pO2 ABG HCO3 ABG O2 Saturation ABG Base Excess ABG Hemoglobin Oxyhemoglobin Sodium 146 H Potassium 3.4 L D Chloride Carbon Dioxide BUN Creatinine 0.5 L Glucose 165 H POC Glucose Lactic Acid Calcium Ionized Calcium Phosphorus Magnesium Total Bilirubin AST 57 H ALT Alkaline Phosphatase 166 H Ammonia Total Creatine Kinase CK-MB (CK-2) CK-MB (CK-2) Rel Index Total Protein Albumin 2.9 L Urine WBC (Auto) Salicylates Acetaminophen Plasma/Serum Alcohol Crossmatch 11/27/19 11/27/19 11/27/19 04:28 04:28 04:42 WBC RBC Hgb Hct MCH RDW Plt Count Lymph % (Auto) [place] % (Auto) [place] # Seg Neutrophils % Seg Neuts % (Manual) Lymphocytes % (Manual) Seg Neutrophils # Seg Neutrophils # Man Lymphocytes # (Manual) Monocytes # (Manual) Basophils # (Manual) PT INR APTT ABG pH 7.470 H ABG pO2 74.0 L ABG HCO3 33.8 H ABG O2 Saturation ABG Base Excess 9.1 H ABG Hemoglobin 8.7 L Oxyhemoglobin 94.7 L Sodium 146 H Potassium 2.9 L* Chloride Carbon Dioxide BUN 25 H Creatinine Glucose 213 H POC Glucose Lactic Acid Calcium Ionized Calcium Phosphorus 1.00 L Magnesium Total Bilirubin AST ALT Alkaline Phosphatase Ammonia Total Creatine Kinase CK-MB (CK-2) CK-MB (CK-2) Rel Index Total Protein Albumin Urine WBC (Auto) Salicylates Acetaminophen Plasma/Serum Alcohol Crossmatch 11/27/19 11/27/19 11/27/19 05:37 12:20 15:46 WBC RBC Hgb Hct MCH RDW Plt Count Lymph % (Auto) [place] % (Auto) [place] # Seg Neutrophils % Seg Neuts % (Manual) Lymphocytes % (Manual) Seg Neutrophils # Seg Neutrophils # Man Lymphocytes # (Manual) Monocytes # (Manual) Basophils # (Manual) PT INR APTT ABG pH ABG pO2 ABG HCO3 ABG O2 Saturation ABG Base Excess ABG Hemoglobin Oxyhemoglobin Sodium 146 H Potassium 3.5 L D Chloride Carbon Dioxide BUN 24 H Creatinine 0.6 L Glucose 187 H POC Glucose 117 H 220 H Lactic Acid Calcium Ionized Calcium Phosphorus Magnesium Total Bilirubin AST ALT Alkaline Phosphatase Ammonia Total Creatine Kinase CK-MB (CK-2) CK-MB (CK-2) Rel Index Total Protein Albumin Urine WBC (Auto) Salicylates Acetaminophen Plasma/Serum Alcohol Crossmatch 11/27/19 11/28/19 11/28/19 17:28 05:00 05:02 WBC RBC Hgb Hct MCH RDW Plt Count Lymph % (Auto) [place] % (Auto) [place] # Seg Neutrophils % Seg Neuts % (Manual) Lymphocytes % (Manual) Seg Neutrophils # Seg Neutrophils # Man Lymphocytes # (Manual) Monocytes # (Manual) Basophils # (Manual) PT INR APTT ABG pH ABG pO2 72.4 L ABG HCO3 33.6 H ABG O2 Saturation 94.1 L ABG Base Excess 7.3 H ABG Hemoglobin Oxyhemoglobin 91.8 L Sodium 146 H Potassium 3.3 L Chloride Carbon Dioxide BUN 25 H Creatinine 0.6 L Glucose 176 H POC Glucose 198 H Lactic Acid Calcium Ionized Calcium Phosphorus Magnesium Total Bilirubin AST ALT Alkaline Phosphatase Ammonia Total Creatine Kinase CK-MB (CK-2) CK-MB (CK-2) Rel Index Total Protein Albumin Urine WBC (Auto) Salicylates Acetaminophen Plasma/Serum Alcohol Crossmatch 11/28/19 11/28/19 11/29/19 05:02 18:55 10:43 WBC 15.2 H 19.0 H RBC 3.06 L 3.01 L Hgb 8.3 L 8.3 L Hct 27.0 L 26.4 L MCH 27 L RDW 19.0 H 19.7 H Plt Count 479 H 611 H Lymph % (Auto) [place] % (Auto) [place] # Seg Neutrophils % Seg Neuts % (Manual) 92.0 H Lymphocytes % (Manual) 2.0 L Seg Neutrophils # Seg Neutrophils # Man 14.0 H Lymphocytes # (Manual) 0.3 L Monocytes # (Manual) Basophils # (Manual) PT INR APTT ABG pH ABG pO2 ABG HCO3 ABG O2 Saturation ABG Base Excess ABG Hemoglobin Oxyhemoglobin Sodium Potassium Chloride Carbon Dioxide BUN Creatinine Glucose POC Glucose 138 H Lactic Acid Calcium Ionized Calcium Phosphorus Magnesium Total Bilirubin AST ALT Alkaline Phosphatase Ammonia Total Creatine Kinase CK-MB (CK-2) CK-MB (CK-2) Rel Index Total Protein Albumin Urine WBC (Auto) Salicylates Acetaminophen Plasma/Serum Alcohol Crossmatch 11/29/19 11/29/19 11/29/19 10:43 12:27 19:25 WBC RBC Hgb Hct MCH RDW Plt Count Lymph % (Auto) [place] % (Auto) [place] # Seg Neutrophils % Seg Neuts % (Manual) Lymphocytes % (Manual) Seg Neutrophils # Seg Neutrophils # Man Lymphocytes # (Manual) Monocytes # (Manual) Basophils # (Manual) PT INR APTT ABG pH ABG pO2 ABG HCO3 ABG O2 Saturation ABG Base Excess ABG Hemoglobin Oxyhemoglobin Sodium Potassium 2.8 L* Chloride Carbon Dioxide BUN 20 H Creatinine 0.5 L Glucose 121 H POC Glucose 128 H 120 H Lactic Acid Calcium Ionized Calcium Phosphorus Magnesium Total Bilirubin AST ALT Alkaline Phosphatase Ammonia Total Creatine Kinase CK-MB (CK-2) CK-MB (CK-2) Rel Index Total Protein Albumin Urine WBC (Auto) Salicylates Acetaminophen Plasma/Serum Alcohol Crossmatch 11/29/19 11/30/19 11/30/19 23:46 04:10 05:02 WBC RBC Hgb Hct MCH RDW Plt Count Lymph % (Auto) [place] % (Auto) [place] # Seg Neutrophils % Seg Neuts % (Manual) Lymphocytes % (Manual) Seg Neutrophils # Seg Neutrophils # Man Lymphocytes # (Manual) Monocytes # (Manual) Basophils # (Manual) PT INR APTT ABG pH ABG pO2 76.3 L ABG HCO3 32.5 H ABG O2 Saturation ABG Base Excess 6.9 H ABG Hemoglobin 8.0 L Oxyhemoglobin 92.6 L Sodium Potassium Chloride Carbon Dioxide BUN Creatinine Glucose POC Glucose 116 H 128 H Lactic Acid Calcium Ionized Calcium Phosphorus Magnesium Total Bilirubin AST ALT Alkaline Phosphatase Ammonia Total Creatine Kinase CK-MB (CK-2) CK-MB (CK-2) Rel Index Total Protein Albumin Urine WBC (Auto) Salicylates Acetaminophen Plasma/Serum Alcohol Crossmatch 11/30/19 11/30/19 11/30/19 05:25 05:25 12:59 WBC 18.4 H RBC 3.10 L Hgb 8.5 L Hct 27.5 L MCH 27 L RDW 20.9 H Plt Count 691 H Lymph % (Auto) 7.1 L [place] % (Auto) 7.7 H [place] # 1.4 H Seg Neutrophils % 83.4 H Seg Neuts % (Manual) Lymphocytes % (Manual) Seg Neutrophils # 15.4 H Seg Neutrophils # Man Lymphocytes # (Manual) Monocytes # (Manual) Basophils # (Manual) PT INR APTT ABG pH ABG pO2 ABG HCO3 ABG O2 Saturation ABG Base Excess ABG Hemoglobin Oxyhemoglobin Sodium 146 H Potassium Chloride 107.2 H Carbon Dioxide BUN Creatinine 0.5 L Glucose 132 H POC Glucose 124 H Lactic Acid Calcium Ionized Calcium Phosphorus Magnesium Total Bilirubin AST 246 H ALT 274 H Alkaline Phosphatase 203 H Ammonia Total Creatine Kinase CK-MB (CK-2) CK-MB (CK-2) Rel Index Total Protein 5.4 L Albumin 2.9 L Urine WBC (Auto) Salicylates Acetaminophen Plasma/Serum Alcohol Crossmatch 11/30/19 12/01/19 12/01/19 17:53 00:05 05:10 WBC RBC Hgb Hct MCH RDW Plt Count Lymph % (Auto) [place] % (Auto) [place] # Seg Neutrophils % Seg Neuts % (Manual) Lymphocytes % (Manual) Seg Neutrophils # Seg Neutrophils # Man Lymphocytes # (Manual) Monocytes # (Manual) Basophils # (Manual) PT INR APTT ABG pH ABG pO2 ABG HCO3 ABG O2 Saturation ABG Base Excess ABG Hemoglobin Oxyhemoglobin Sodium Potassium Chloride Carbon Dioxide BUN Creatinine Glucose POC Glucose 113 H 143 H 145 H Lactic Acid Calcium Ionized Calcium Phosphorus Magnesium Total Bilirubin AST ALT Alkaline Phosphatase Ammonia Total Creatine Kinase CK-MB (CK-2) CK-MB (CK-2) Rel Index Total Protein Albumin Urine WBC (Auto) Salicylates Acetaminophen Plasma/Serum Alcohol Crossmatch 12/01/19 12/01/19 12/01/19 05:33 08:23 08:23 WBC 22.7 H RBC 2.88 L Hgb 7.9 L Hct 25.2 L MCH 27 L RDW 21.0 H Plt Count 732 H Lymph % (Auto) [place] % (Auto) [place] # Seg Neutrophils % Seg Neuts % (Manual) 91.0 H Lymphocytes % (Manual) 3.0 L Seg Neutrophils # Seg Neutrophils # Man 20.7 H Lymphocytes # (Manual) 0.7 L Monocytes # (Manual) 1.1 H Basophils # (Manual) PT INR APTT ABG pH ABG pO2 68.6 L ABG HCO3 34.1 H ABG O2 Saturation ABG Base Excess 9.0 H ABG Hemoglobin 6.5 L Oxyhemoglobin 94.7 L Sodium Potassium Chloride Carbon Dioxide BUN Creatinine 0.5 L Glucose 125 H POC Glucose Lactic Acid Calcium Ionized Calcium Phosphorus Magnesium Total Bilirubin AST ALT Alkaline Phosphatase Ammonia Total Creatine Kinase CK-MB (CK-2) CK-MB (CK-2) Rel Index Total Protein Albumin Urine WBC (Auto) Salicylates Acetaminophen Plasma/Serum Alcohol Crossmatch 12/01/19 12/01/19 12/01/19 13:21 17:54 20:59 WBC RBC Hgb Hct MCH RDW Plt Count Lymph % (Auto) [place] % (Auto) [place] # Seg Neutrophils % Seg Neuts % (Manual) Lymphocytes % (Manual) Seg Neutrophils # Seg Neutrophils # Man Lymphocytes # (Manual) Monocytes # (Manual) Basophils # (Manual) PT INR APTT ABG pH ABG pO2 78.3 L ABG HCO3 33.8 H ABG O2 Saturation 94.9 L ABG Base Excess 7.9 H ABG Hemoglobin 11.5 L Oxyhemoglobin 92.3 L Sodium Potassium Chloride Carbon Dioxide BUN Creatinine Glucose POC Glucose 111 H 115 H Lactic Acid Calcium Ionized Calcium Phosphorus Magnesium Total Bilirubin AST ALT Alkaline Phosphatase Ammonia Total Creatine Kinase CK-MB (CK-2) CK-MB (CK-2) Rel Index Total Protein Albumin Urine WBC (Auto) Salicylates Acetaminophen Plasma/Serum Alcohol Crossmatch 12/02/19 12/03/19 12/04/19 12:55 20:00 04:26 WBC 15.2 H RBC 2.69 L Hgb 7.4 L Hct 23.6 L MCH 27 L RDW 19.9 H Plt Count 838 H Lymph % (Auto) [place] % (Auto) [place] # Seg Neutrophils % Seg Neuts % (Manual) Lymphocytes % (Manual) Seg Neutrophils # Seg Neutrophils # Man Lymphocytes # (Manual) Monocytes # (Manual) Basophils # (Manual) PT INR APTT ABG pH ABG pO2 68.3 L ABG HCO3 33.5 H ABG O2 Saturation 93.5 L ABG Base Excess 8.4 H ABG Hemoglobin 7.3 L Oxyhemoglobin 90.9 L Sodium Potassium Chloride Carbon Dioxide BUN Creatinine Glucose POC Glucose 107 H Lactic Acid Calcium Ionized Calcium Phosphorus Magnesium Total Bilirubin AST ALT Alkaline Phosphatase Ammonia Total Creatine Kinase CK-MB (CK-2) CK-MB (CK-2) Rel Index Total Protein Albumin Urine WBC (Auto) Salicylates Acetaminophen Plasma/Serum Alcohol Crossmatch 12/04/19 12/04/19 12/04/19 04:26 07:45 12:02 WBC 15.9 H RBC 2.88 L Hgb 7.9 L Hct 25.1 L MCH RDW 20.4 H Plt Count 839 H Lymph % (Auto) 11.3 L [place] % (Auto) 15.2 H [place] # 2.4 H Seg Neutrophils % 72.4 H Seg Neuts % (Manual) Lymphocytes % (Manual) Seg Neutrophils # 11.5 H Seg Neutrophils # Man Lymphocytes # (Manual) Monocytes # (Manual) Basophils # (Manual) PT INR APTT ABG pH ABG pO2 ABG HCO3 ABG O2 Saturation ABG Base Excess ABG Hemoglobin Oxyhemoglobin Sodium Potassium Chloride 96.5 L Carbon Dioxide BUN 21 H Creatinine 0.6 L Glucose 107 H POC Glucose 138 H Lactic Acid Calcium Ionized Calcium Phosphorus Magnesium Total Bilirubin AST ALT Alkaline Phosphatase Ammonia Total Creatine Kinase CK-MB (CK-2) CK-MB (CK-2) Rel Index Total Protein Albumin Urine WBC (Auto) Salicylates Acetaminophen Plasma/Serum Alcohol Crossmatch 12/04/19 12/05/19 12/05/19 18:16 11:55 18:36 WBC RBC Hgb Hct MCH RDW Plt Count Lymph % (Auto) [place] % (Auto) [place] # Seg Neutrophils % Seg Neuts % (Manual) Lymphocytes % (Manual) Seg Neutrophils # Seg Neutrophils # Man Lymphocytes # (Manual) Monocytes # (Manual) Basophils # (Manual) PT INR APTT ABG pH ABG pO2 ABG HCO3 ABG O2 Saturation ABG Base Excess ABG Hemoglobin Oxyhemoglobin Sodium Potassium Chloride Carbon Dioxide BUN Creatinine Glucose POC Glucose 135 H 125 H 135 H Lactic Acid Calcium Ionized Calcium Phosphorus Magnesium Total Bilirubin AST ALT Alkaline Phosphatase Ammonia Total Creatine Kinase CK-MB (CK-2) CK-MB (CK-2) Rel Index Total Protein Albumin Urine WBC (Auto) Salicylates Acetaminophen Plasma/Serum Alcohol Crossmatch 12/05/19 12/06/19 12/06/19 23:30 04:14 05:43 WBC RBC Hgb Hct MCH RDW Plt Count Lymph % (Auto) [place] % (Auto) [place] # Seg Neutrophils % Seg Neuts % (Manual) Lymphocytes % (Manual) Seg Neutrophils # Seg Neutrophils # Man Lymphocytes # (Manual) Monocytes # (Manual) Basophils # (Manual) PT INR APTT ABG pH ABG pO2 ABG HCO3 ABG O2 Saturation ABG Base Excess ABG Hemoglobin Oxyhemoglobin Sodium Potassium 5.6 H Chloride 95.0 L Carbon Dioxide BUN 48 H Creatinine 1.3 H D Glucose POC Glucose 126 H 121 H Lactic Acid Calcium Ionized Calcium Phosphorus Magnesium Total Bilirubin AST 89 H ALT 98 H Alkaline Phosphatase 476 H Ammonia Total Creatine Kinase CK-MB (CK-2) CK-MB (CK-2) Rel Index Total Protein Albumin 2.8 L Urine WBC (Auto) Salicylates Acetaminophen Plasma/Serum Alcohol Crossmatch 12/06/19 12/06/19 12/07/19 10:39 14:34 00:19 WBC 17.3 H RBC 2.60 L Hgb 7.1 L Hct 22.7 L MCH 27 L RDW 20.1 H Plt Count 832 H Lymph % (Auto) [place] % (Auto) [place] # Seg Neutrophils % Seg Neuts % (Manual) Lymphocytes % (Manual) Seg Neutrophils # Seg Neutrophils # Man Lymphocytes # (Manual) Monocytes # (Manual) Basophils # (Manual) PT INR APTT ABG pH ABG pO2 ABG HCO3 ABG O2 Saturation ABG Base Excess ABG Hemoglobin Oxyhemoglobin Sodium Potassium Chloride Carbon Dioxide BUN Creatinine Glucose POC Glucose 128 H 136 H Lactic Acid Calcium Ionized Calcium Phosphorus Magnesium Total Bilirubin AST ALT Alkaline Phosphatase Ammonia Total Creatine Kinase CK-MB (CK-2) CK-MB (CK-2) Rel Index Total Protein Albumin Urine WBC (Auto) Salicylates Acetaminophen Plasma/Serum Alcohol Crossmatch 12/07/19 12/07/19 12/07/19 03:44 03:44 05:53 WBC 16.2 H RBC 2.56 L Hgb 7.1 L Hct 22.3 L MCH RDW 19.4 H Plt Count 782 H Lymph % (Auto) [place] % (Auto) [place] # Seg Neutrophils % Seg Neuts % (Manual) Lymphocytes % (Manual) Seg Neutrophils # Seg Neutrophils # Man Lymphocytes # (Manual) Monocytes # (Manual) Basophils # (Manual) PT INR APTT ABG pH ABG pO2 ABG HCO3 ABG O2 Saturation ABG Base Excess ABG Hemoglobin Oxyhemoglobin Sodium Potassium Chloride 95.6 L Carbon Dioxide BUN 56 H Creatinine 1.4 H Glucose 120 H POC Glucose 128 H Lactic Acid Calcium 10.3 H Ionized Calcium Phosphorus Magnesium Total Bilirubin AST ALT Alkaline Phosphatase Ammonia Total Creatine Kinase CK-MB (CK-2) CK-MB (CK-2) Rel Index Total Protein Albumin Urine WBC (Auto) Salicylates Acetaminophen Plasma/Serum Alcohol Crossmatch 12/07/19 12/07/19 12/08/19 12:54 23:47 00:20 WBC RBC Hgb Hct MCH RDW Plt Count Lymph % (Auto) [place] % (Auto) [place] # Seg Neutrophils % Seg Neuts % (Manual) Lymphocytes % (Manual) Seg Neutrophils # Seg Neutrophils # Man Lymphocytes # (Manual) Monocytes # (Manual) Basophils # (Manual) PT INR APTT ABG pH ABG pO2 ABG HCO3 ABG O2 Saturation ABG Base Excess ABG Hemoglobin Oxyhemoglobin Sodium Potassium Chloride Carbon Dioxide BUN Creatinine Glucose POC Glucose 128 H 130 H 124 H Lactic Acid Calcium Ionized Calcium Phosphorus Magnesium Total Bilirubin AST ALT Alkaline Phosphatase Ammonia Total Creatine Kinase CK-MB (CK-2) CK-MB (CK-2) Rel Index Total Protein Albumin Urine WBC (Auto) Salicylates Acetaminophen Plasma/Serum Alcohol Crossmatch 12/08/19 12/08/19 12/08/19 06:38 12:04 18:26 WBC RBC Hgb Hct MCH RDW Plt Count Lymph % (Auto) [place] % (Auto) [place] # Seg Neutrophils % Seg Neuts % (Manual) Lymphocytes % (Manual) Seg Neutrophils # Seg Neutrophils # Man Lymphocytes # (Manual) Monocytes # (Manual) Basophils # (Manual) PT INR APTT ABG pH ABG pO2 ABG HCO3 ABG O2 Saturation ABG Base Excess ABG Hemoglobin Oxyhemoglobin Sodium Potassium Chloride Carbon Dioxide BUN Creatinine Glucose POC Glucose 137 H 129 H 150 H Lactic Acid Calcium Ionized Calcium Phosphorus Magnesium Total Bilirubin AST ALT Alkaline Phosphatase Ammonia Total Creatine Kinase CK-MB (CK-2) CK-MB (CK-2) Rel Index Total Protein Albumin Urine WBC (Auto) Salicylates Acetaminophen Plasma/Serum Alcohol Crossmatch 12/09/19 12/09/19 12/09/19 00:56 05:34 06:13 WBC RBC Hgb Hct MCH RDW Plt Count Lymph % (Auto) [place] % (Auto) [place] # Seg Neutrophils % Seg Neuts % (Manual) Lymphocytes % (Manual) Seg Neutrophils # Seg Neutrophils # Man Lymphocytes # (Manual) Monocytes # (Manual) Basophils # (Manual) PT INR APTT ABG pH ABG pO2 ABG HCO3 ABG O2 Saturation ABG Base Excess ABG Hemoglobin Oxyhemoglobin Sodium 146 H Potassium Chloride Carbon Dioxide BUN 66 H Creatinine 1.9 H Glucose 116 H POC Glucose 130 H 130 H Lactic Acid Calcium Ionized Calcium Phosphorus Magnesium Total Bilirubin AST ALT Alkaline Phosphatase Ammonia Total Creatine Kinase CK-MB (CK-2) CK-MB (CK-2) Rel Index Total Protein Albumin Urine WBC (Auto) Salicylates Acetaminophen Plasma/Serum Alcohol Crossmatch 12/09/19 12/09/19 12/10/19 11:52 17:50 00:14 WBC RBC Hgb Hct MCH RDW Plt Count Lymph % (Auto) [place] % (Auto) [place] # Seg Neutrophils % Seg Neuts % (Manual) Lymphocytes % (Manual) Seg Neutrophils # Seg Neutrophils # Man Lymphocytes # (Manual) Monocytes # (Manual) Basophils # (Manual) PT INR APTT ABG pH ABG pO2 ABG HCO3 ABG O2 Saturation ABG Base Excess ABG Hemoglobin Oxyhemoglobin Sodium Potassium Chloride Carbon Dioxide BUN Creatinine Glucose POC Glucose 135 H 120 H 116 H Lactic Acid Calcium Ionized Calcium Phosphorus Magnesium Total Bilirubin AST ALT Alkaline Phosphatase Ammonia Total Creatine Kinase CK-MB (CK-2) CK-MB (CK-2) Rel Index Total Protein Albumin Urine WBC (Auto) Salicylates Acetaminophen Plasma/Serum Alcohol Crossmatch 12/10/19 12/10/19 12/10/19 05:38 11:38 17:34 WBC RBC Hgb Hct MCH RDW Plt Count Lymph % (Auto) [place] % (Auto) [place] # Seg Neutrophils % Seg Neuts % (Manual) Lymphocytes % (Manual) Seg Neutrophils # Seg Neutrophils # Man Lymphocytes # (Manual) Monocytes # (Manual) Basophils # (Manual) PT INR APTT ABG pH ABG pO2 ABG HCO3 ABG O2 Saturation ABG Base Excess ABG Hemoglobin Oxyhemoglobin Sodium Potassium Chloride Carbon Dioxide BUN Creatinine Glucose POC Glucose 115 H 112 H 130 H Lactic Acid Calcium Ionized Calcium Phosphorus Magnesium Total Bilirubin AST ALT Alkaline Phosphatase Ammonia Total Creatine Kinase CK-MB (CK-2) CK-MB (CK-2) Rel Index Total Protein Albumin Urine WBC (Auto) Salicylates Acetaminophen Plasma/Serum Alcohol Crossmatch 12/11/19 12/11/19 12/11/19 00:20 05:31 12:22 WBC RBC Hgb Hct MCH RDW Plt Count Lymph % (Auto) [place] % (Auto) [place] # Seg Neutrophils % Seg Neuts % (Manual) Lymphocytes % (Manual) Seg Neutrophils # Seg Neutrophils # Man Lymphocytes # (Manual) Monocytes # (Manual) Basophils # (Manual) PT INR APTT ABG pH ABG pO2 ABG HCO3 ABG O2 Saturation ABG Base Excess ABG Hemoglobin Oxyhemoglobin Sodium Potassium Chloride Carbon Dioxide BUN Creatinine Glucose POC Glucose 124 H 132 H 128 H Lactic Acid Calcium Ionized Calcium Phosphorus Magnesium Total Bilirubin AST ALT Alkaline Phosphatase Ammonia Total Creatine Kinase CK-MB (CK-2) CK-MB (CK-2) Rel Index Total Protein Albumin Urine WBC (Auto) Salicylates Acetaminophen Plasma/Serum Alcohol Crossmatch 12/11/19 12/11/19 12/12/19 18:04 23:42 03:51 WBC RBC Hgb Hct MCH RDW Plt Count Lymph % (Auto) [place] % (Auto) [place] # Seg Neutrophils % Seg Neuts % (Manual) Lymphocytes % (Manual) Seg Neutrophils # Seg Neutrophils # Man Lymphocytes # (Manual) Monocytes # (Manual) Basophils # (Manual) PT INR APTT ABG pH ABG pO2 ABG HCO3 ABG O2 Saturation ABG Base Excess ABG Hemoglobin Oxyhemoglobin Sodium 149 H Potassium Chloride Carbon Dioxide 20 L D BUN 77 H Creatinine 2.8 H Glucose POC Glucose 133 H 154 H Lactic Acid Calcium Ionized Calcium Phosphorus Magnesium Total Bilirubin AST ALT Alkaline Phosphatase Ammonia Total Creatine Kinase CK-MB (CK-2) CK-MB (CK-2) Rel Index Total Protein Albumin Urine WBC (Auto) Salicylates Acetaminophen Plasma/Serum Alcohol Crossmatch 12/12/19 12/12/19 12/12/19 05:18 05:26 10:30 WBC 18.0 H RBC 2.51 L Hgb 6.8 L Hct 22.0 L MCH 27 L RDW 19.9 H Plt Count 582 H Lymph % (Auto) [place] % (Auto) [place] # Seg Neutrophils % Seg Neuts % (Manual) Lymphocytes % (Manual) Seg Neutrophils # Seg Neutrophils # Man Lymphocytes # (Manual) Monocytes # (Manual) Basophils # (Manual) PT INR APTT ABG pH ABG pO2 ABG HCO3 ABG O2 Saturation ABG Base Excess ABG Hemoglobin Oxyhemoglobin Sodium Potassium Chloride Carbon Dioxide BUN Creatinine Glucose POC Glucose 135 H Lactic Acid Calcium Ionized Calcium Phosphorus Magnesium Total Bilirubin AST ALT Alkaline Phosphatase Ammonia Total Creatine Kinase CK-MB (CK-2) CK-MB (CK-2) Rel Index Total Protein Albumin Urine WBC (Auto) Salicylates Acetaminophen Plasma/Serum Alcohol Crossmatch See Detail 12/12/19 12/12/19 12/12/19 11:44 18:10 23:21 WBC RBC Hgb Hct MCH RDW Plt Count Lymph % (Auto) [place] % (Auto) [place] # Seg Neutrophils % Seg Neuts % (Manual) Lymphocytes % (Manual) Seg Neutrophils # Seg Neutrophils # Man Lymphocytes # (Manual) Monocytes # (Manual) Basophils # (Manual) PT INR APTT ABG pH ABG pO2 ABG HCO3 ABG O2 Saturation ABG Base Excess ABG Hemoglobin Oxyhemoglobin Sodium Potassium Chloride Carbon Dioxide BUN Creatinine Glucose POC Glucose 108 H 107 H 126 H Lactic Acid Calcium Ionized Calcium Phosphorus Magnesium Total Bilirubin AST ALT Alkaline Phosphatase Ammonia Total Creatine Kinase CK-MB (CK-2) CK-MB (CK-2) Rel Index Total Protein Albumin Urine WBC (Auto) Salicylates Acetaminophen Plasma/Serum Alcohol Crossmatch 12/13/19 12/13/19 12/13/19 05:41 07:48 07:48 WBC 38.3 H RBC 2.37 L Hgb 6.3 L Hct 20.9 L MCH 27 L RDW 20.2 H Plt Count 546 H Lymph % (Auto) [place] % (Auto) [place] # Seg Neutrophils % Seg Neuts % (Manual) 93.0 H Lymphocytes % (Manual) 1.0 L Seg Neutrophils # Seg Neutrophils # Man 35.6 H Lymphocytes # (Manual) 0.4 L Monocytes # (Manual) Basophils # (Manual) 0.4 H PT INR APTT ABG pH ABG pO2 ABG HCO3 ABG O2 Saturation ABG Base Excess ABG Hemoglobin Oxyhemoglobin Sodium 152 H Potassium 3.1 L D Chloride 111.9 H Carbon Dioxide 21 L BUN 53 H Creatinine 1.9 H Glucose 141 H POC Glucose 128 H Lactic Acid Calcium Ionized Calcium Phosphorus Magnesium Total Bilirubin AST ALT Alkaline Phosphatase 316 H Ammonia Total Creatine Kinase CK-MB (CK-2) CK-MB (CK-2) Rel Index Total Protein Albumin 2.4 L Urine WBC (Auto) Salicylates Acetaminophen Plasma/Serum Alcohol Crossmatch Chest x-ray: image reviewed (trach in good position; no new infiltrate) Allied health notes reviewed: nursing
--- NOTE | 2019-12-13 15:06 | Progress Note ---
Assessment and Plan Assessment and plan: Patient is a 54-year-old woman with a history of Hypertension, Depression, tobacco and alcohol dependency who presented to [facility] ED on 11/22/2019 due to cardiac arrest outside of the hospital. EMS found pt in PEA. Upon their arrival patient in sinus tachycardia. EMS were unable to intubate patient with a ET tube because she was clenching down therefore Joe airway placed per records. Patient received Narcan and Epinephrine. Patient's rhythm changed to PEA to sinus bradycardia, to PEA, then to sinus tach after receiving Narcan and Epinephrine. Per the ED physician who evaluated pt, Patient presented with a pulse, intermittent respirations, and bagging support via Joe airway with O2 sat of 100%. Accu-Chek of 71 obtained by EMS Status post cardiac arrest, etiology unknown Acute respiratory failure with hypoxia s/p Intubation via ETT >96 hours: Trach and PEG planned, CCM following Seizure disorder: treat with Keppra Presumed anoxic brain injury: Neurology is following Alcohol abuse: [facility] protocol Acute metabolic encephalopathy/toxic encephalopathy due to the above BHAVANA secondary to vasomotor nephropathy: treat with IVF Hypertension: watch bp closely, prn IV antihypertensives prn Distended abdomen: treat with NGT to suction Transaminitis with Ischemic hepatitis Acute cystitis with Sepsis, not sure POA, treated with antibiotics and this completed a few days 11/29/2019 ago no growth was noted on cultures no fever. We will continue off antibiotics at this time. Metabolic acidosis/alcoholic acidosis/lactic acidosis Full code DVT ppx: sq heparin 12/04-: Patient failed CPAP trial became apneic according to documentation. No clinical change, continue current management, monitor H/H Awaiting labs. No new changes at this time opens eyes. Surgeon discussed trach and PEG with family b ut they want to get more information about hospice which they have been directed to the case loader operator. Patient overnight had a episode of vomiting. Zofran started. 12/11/19: I took over patient care on day 18, Patient remains intubated, daily weaning trails. Trach and PEG planned once family consents. Mother is Anh Jesus @ [phone]. CCT 31 minutes 12/12/19: transfuse PRBC, s/p trach and PEG 12/13/19: Trach and PEG done, New fevers today, suspected Aspiration Pneumonitis vs Atelectasis; get blood cultures and empirically treat with ABX, levaquin/flagyl IV combo. Renewed restraints. ARF improved drastically as Cr went from 2.8 to 1.9 overnigh. however, WBC skyrocketed to 38.3k from 18k. Will repeat bmp and cbc, CCT 33 minutes History Interval history: Patient was seen and examined. Follow-up on current diagnosis of Respiratory failure. Overnight uneventful as no events directly reported to me. Imaging, nursing note, chart, labs and old chart reviewed. Hospitalist Physical - Physical exam Narrative exam: Gen: critical ill, intubated HEENT: ETT in place Neck: supple, no adenopathy, no thyromegaly, no JVD CVS/Heart: Regular Tachycardia, normal S1S2, pulses present bilaterally Chest/Lungs: CTA B, Symmetrical chest expansion, good air entry bilaterally GI/Abdomen: soft, NTND, good bowel sounds, no guarding or rebound Neuro: doesnt follow commands Psych: not responding - Constitutional Vitals: Temp Pulse Resp BP Pulse Ox 101.5 F H 119 H 23 137/72 97 12/13/19 11:59 12/13/19 14:30 12/13/19 14:30 12/13/19 14:30 12/13/19 14:30 General appearance: Present: no acute distress, other (on vent with sedation) Results - Labs CBC & Chem 7: 12/13/19 07:48 12/13/19 07:48 Labs: Laboratory Last Values WBC 38.3 K/mm3 (4.5-11.0) H 12/13/19 07:48 RBC 2.37 M/mm3 (3.65-5.03) L 12/13/19 07:48 Hgb 6.3 gm/dl (10.1-14.3) L 12/13/19 07:48 Hct 20.9 % (30.3-42.9) L 12/13/19 07:48 MCV 88 fl (79-97) 12/13/19 07:48 MCH 27 pg (28-32) L 12/13/19 07:48 MCHC 30 % (30-34) 12/13/19 07:48 RDW 20.2 % (13.2-15.2) H 12/13/19 07:48 Plt Count 546 K/mm3 (140-440) H 12/13/19 07:48 Lymph % (Auto) 11.3 % (13.4-35.0) L 12/04/19 07:45 [place] % (Auto) 15.2 % (0.0-7.3) H 12/04/19 07:45 Eos % (Auto) 0.5 % (0.0-4.3) 12/04/19 07:45 Baso % (Auto) 0.6 % (0.0-1.8) 12/04/19 07:45 Lymph # 1.8 K/mm3 (1.2-5.4) 12/04/19 07:45 [place] # 2.4 K/mm3 (0.0-0.8) H 12/04/19 07:45 Eos # 0.1 K/mm3 (0.0-0.4) 12/04/19 07:45 Baso # 0.1 K/mm3 (0.0-0.1) 12/04/19 07:45 Add Manual Diff Complete 12/13/19 07:48 Total Counted 100 12/13/19 07:48 Seg Neutrophils % Component Prep Operator 12/13/19 07:48 Seg Neuts % (Manual) 93.0 % (40.0-70.0) H 12/13/19 07:48 Band Neutrophils % 3.0 % 12/13/19 07:48 Lymphocytes % (Manual) 1.0 % (13.4-35.0) L 12/13/19 07:48 Reactive Lymphs % (Man) 0 % 12/13/19 07:48 Monocytes % (Manual) 1.0 % (0.0-7.3) 12/13/19 07:48 Eosinophils % (Manual) 1.0 % (0.0-4.3) 12/13/19 07:48 Basophils % (Manual) 1.0 % (0.0-1.8) 12/13/19 07:48 Metamyelocytes % 0 % 12/13/19 07:48 Myelocytes % 0 % 12/13/19 07:48 Promyelocytes % 0 % 12/13/19 07:48 Blast Cells % 0 % 12/13/19 07:48 Nucleated RBC % Not Reportable 12/13/19 07:48 Seg Neutrophils # 11.5 K/mm3 (1.8-7.7) H 12/04/19 07:45 Seg Neutrophils # Man 35.6 K/mm3 (1.8-7.7) H 12/13/19 07:48 Band Neutrophils # 1.1 K/mm3 12/13/19 07:48 Lymphocytes # (Manual) 0.4 K/mm3 (1.2-5.4) L 12/13/19 07:48 Abs React Lymphs (Man) 0.0 K/mm3 12/13/19 07:48 Monocytes # (Manual) 0.4 K/mm3 (0.0-0.8) 12/13/19 07:48 Eosinophils # (Manual) 0.4 K/mm3 (0.0-0.4) 12/13/19 07:48 Basophils # (Manual) 0.4 K/mm3 (0.0-0.1) H 12/13/19 07:48 Metamyelocytes # 0.0 K/mm3 12/13/19 07:48 Myelocytes # 0.0 K/mm3 12/13/19 07:48 Promyelocytes # 0.0 K/mm3 12/13/19 07:48 Blast Cells # 0.0 K/mm3 12/13/19 07:48 Pathologist Review 12/13/19 07:48 WBC Morphology Not Reportable 12/01/19 08:23 Hypersegmented Neuts Not Reportable 12/13/19 07:48 Hyposegmented Neuts Not Reportable 12/13/19 07:48 Hypogranular Neuts Not Reportable 12/13/19 07:48 Smudge Cells Not Reportable 12/13/19 07:48 Toxic Granulation Not Reportable 12/13/19 07:48 Toxic Vacuolation Not Reportable 12/13/19 07:48 Dohle Bodies Not Reportable 12/13/19 07:48 Pelger-Huet Anomaly Not Reportable 12/13/19 07:48 Dominique Rods Not Reportable 12/13/19 07:48 Platelet Estimate Consistent w auto 12/13/19 07:48 Clumped Platelets Not Reportable 12/13/19 07:48 Plt Clumps, EDTA Not Reportable 12/13/19 07:48 Large Platelets Not Reportable 12/13/19 07:48 Giant Platelets Not Reportable 12/13/19 07:48 Platelet Satelliting Not Reportable 12/13/19 07:48 Plt Morphology Comment Not Reportable 12/13/19 07:48 RBC Morphology Not Reportable 12/13/19 07:48 Dimorphic RBCs Not Reportable 12/13/19 07:48 Polychromasia Not Reportable 12/13/19 07:48 Hypochromasia 1+ 12/13/19 07:48 Poikilocytosis Not Reportable 12/13/19 07:48 Anisocytosis 1+ 12/13/19 07:48 Microcytosis Not Reportable 12/13/19 07:48 Macrocytosis Few 12/13/19 07:48 Spherocytes Not Reportable 12/13/19 07:48 Pappenheimer Bodies Not Reportable 12/13/19 07:48 Sickle Cells Not Reportable 12/13/19 07:48 Target Cells Not Reportable 12/13/19 07:48 Tear Drop Cells Not Reportable 12/13/19 07:48 Ovalocytes Not Reportable 12/13/19 07:48 Helmet Cells Not Reportable 12/13/19 07:48 [place] Bodies Not Reportable 12/13/19 07:48 Glenn Rings Not Reportable 12/13/19 07:48 [place] Cells Not Reportable 12/13/19 07:48 Bite Cells Not Reportable 12/13/19 07:48 Crenated Cell Not Reportable 12/13/19 07:48 Elliptocytes Not Reportable 12/13/19 07:48 Acanthocytes (Spur) Not Reportable 12/13/19 07:48 Rouleaux Not Reportable 12/13/19 07:48 Hemoglobin C Crystals Not Reportable 12/13/19 07:48 Schistocytes Not Reportable 12/13/19 07:48 Malaria parasites Not Reportable 12/13/19 07:48 Gregg Bodies Not Reportable 12/13/19 07:48 Hem Pathologist Commnt Sent to pathology 12/13/19 07:48 PT 17.0 Sec. (12.2-14.9) H 11/23/19 03:47 INR 1.36 (0.87-1.13) H 11/23/19 03:47 APTT 128.2 Sec. (24.2-36.6) H* 11/23/19 03:47 Heparin Anti-Xa Level 0.31 U.I./ml (0.3-0.7) 11/23/19 09:03 ABG pH 7.437 pH Units (7.350-7.450) 12/03/19 20:00 ABG pCO2 50.7 mm Hg 12/03/19 20:00 ABG pO2 68.3 mm Hg (80.0-90.0) L 12/03/19 20:00 ABG HCO3 33.5 mmol/L (20.0-26.0) H 12/03/19 20:00 ABG O2 Saturation 93.5 % (95.0-99.0) L 12/03/19 20:00 ABG O2 Content 9.5 (0.0-44) 12/03/19 20:00 ABG Base Excess 8.4 mmol/L (-2.0-3.0) H 12/03/19 20:00 ABG Hemoglobin 7.3 gm/dl (12.0-16.0) L 12/03/19 20:00 ABG Carboxyhemoglobin 2.3 % (0.0-5.0) 12/03/19 20:00 ABG Methemoglobin 0.4 % (0.0-1.5) 12/03/19 20:00 Oxyhemoglobin 90.9 % (95.0-99.0) L 12/03/19 20:00 FiO2 30 % 12/03/19 20:00 Sodium 152 mmol/L (137-145) H 12/13/19 07:48 Potassium 3.1 mmol/L (3.6-5.0) L D 12/13/19 07:48 Chloride 111.9 mmol/L (98-107) H 12/13/19 07:48 Carbon Dioxide 21 mmol/L (22-30) L 12/13/19 07:48 Anion Gap 22 mmol/L 12/13/19 07:48 BUN 53 mg/dL (7-17) H 12/13/19 07:48 Creatinine 1.9 mg/dL (0.7-1.2) H 12/13/19 07:48 Estimated GFR 33 ml/min 12/13/19 07:48 BUN/Creatinine Ratio 28 % 12/13/19 07:48 Glucose 141 mg/dL (65-100) H 12/13/19 07:48 POC Glucose 128 (70-105) H 12/13/19 05:41 Lactic Acid 1.80 mmol/L (0.7-2.0) 11/25/19 05:05 Calcium 9.1 mg/dL (8.4-10.2) 12/13/19 07:48 Ionized Calcium 4.5 mg/dL (4.8-5.6) L 11/23/19 06:32 Phosphorus 4.20 mg/dL (2.5-4.5) D 11/28/19 08:59 Magnesium 2.30 mg/dL (1.7-2.3) 11/29/19 13:41 Total Bilirubin 0.40 mg/dL (0.1-1.2) 12/13/19 07:48 AST 27 units/L (5-40) 12/13/19 07:48 ALT 26 units/L (7-56) 12/13/19 07:48 Alkaline Phosphatase 316 units/L (35-129) H 12/13/19 07:48 Ammonia 42.0 umol/L (25-60) 11/29/19 13:41 Total Creatine Kinase 139 units/L (30-135) H 11/22/19 23:27 CK-MB (CK-2) 8.3 ng/mL (0.0-4.0) H 11/22/19 23:27 CK-MB (CK-2) Rel Index 5.9 (0-4) H 11/22/19 23:27 Troponin T < 0.010 ng/mL (0.00-0.029) 11/22/19 23:27 Total Protein 6.8 g/dL (6.3-8.2) 12/13/19 07:48 Albumin 2.4 g/dL (3.9-5) L 12/13/19 07:48 Albumin/Globulin Ratio 0.5 % 12/13/19 07:48 Lipase 18 units/L (13-60) 11/23/19 00:34 Procalcitonin 1.09 ng/mL (<0.15) 11/23/19 04:53 Urine Color Yellow (Yellow) 11/22/19 23:17 Urine Turbidity Cloudy (Clear) 11/22/19 23:17 Urine pH 6.0 (5.0-7.0) 11/22/19 23:17 Ur Specific [place] 1.010 (1.003-1.030) 11/22/19 23:17 Urine Protein >500 mg/dL (Negative) 11/22/19 23:17 Urine Glucose (UA) >=500 mg/dL (Negative) 11/22/19 23:17 Urine Ketones 20 mg/dL (Negative) 11/22/19 23:17 Urine Blood Mod (Negative) 11/22/19 23:17 Urine Nitrite Neg (Negative) 11/22/19 23:17 Urine Bilirubin Neg (Negative) 11/22/19 23:17 Urine Urobilinogen 4.0 mg/dL (<2.0) 11/22/19 23:17 Ur Leukocyte Esterase Neg (Negative) 11/22/19 23:17 Urine WBC (Auto) 40.0 /HPF (0.0-6.0) H 11/22/19 23:17 Urine RBC (Auto) 10.0 /HPF (0.0-6.0) 11/22/19 23:17 U Epithel Cells (Auto) 1.0 /HPF (0-13.0) 11/22/19 23:17 Urine Bacteria (Auto) 2+ /HPF (Negative) 11/22/19 23:17 Urine Mucus Few /HPF 11/22/19 23:17 Salicylates < 0.3 mg/dL (2.8-20.0) L 11/22/19 23:27 Urine Opiates Screen Presumptive negative 11/22/19 23:17 Urine Methadone Screen Presumptive negative 11/22/19 23:17 Acetaminophen < 5.0 ug/mL (10.0-30.0) L 11/22/19 23:27 Ur Barbiturates Screen Presumptive negative 11/22/19 23:17 Ur Phencyclidine Scrn Presumptive negative 11/22/19 23:17 Ur Amphetamines Screen Presumptive negative 11/22/19 23:17 U Benzodiazepines Scrn Presumptive negative 11/22/19 23:17 Urine Cocaine Screen Presumptive negative 11/22/19 23:17 U Marijuana (THC) Screen Presumptive negative 11/22/19 23:17 Drugs of Abuse Note Disclamer 11/22/19 23:17 Plasma/Serum Alcohol 0.08 % (0-0.07) H 11/22/19 23:27 Hepatitis A IgM Ab Non-reactive (NonReactive) 11/23/19 01:19 Hep Bs Antigen Non-reactive (Negative) 11/23/19 01:19 Hep B Core IgM Ab Non-reactive (NonReactive) 11/23/19 01:19 Hepatitis C Antibody Non-reactive (NonReactive) 11/23/19 01:19 Blood Type O POSITIVE 12/12/19 10:30 Antibody Screen Negative 12/12/19 10:30 Crossmatch See Detail 12/12/19 10:30 - Diagnostic Impressions Diagnostic Impressions: Echocardiogram 11/23/19 03:58 Transthoracic Echocardiogram Indication: Cardiac arrest BP: 131/89 HR: 115 Conclusions *The study quality is technically difficult. *Global left ventricular wall motion and contractility are within normal limits. *The estimated ejection fraction is 55-60%. *Abnormal left ventricular diastolic filling is observed, consistent with impaired relaxation. *There is no pericardial effusion. Findings Procedure Info: The study quality is technically difficult. The study was technically limited due to the patient's inability to lay in the left lateral decubitus position. Left Ventricle: The left ventricular chamber size is normal. There is no left ventricular hypertrophy. Global left ventricular wall motion and contractility are within normal limits. Global left ventricular systolic function is normal. The estimated ejection fraction is 55-60%. Abnormal left ventricular diastolic filling is observed, consistent with impaired relaxation. Left Atrium: The left atrial chamber size is normal. Aortic Valve: The aortic valve leaflets are mildly thickened. Mitral Valve: The mitral valve leaflets are mildly thickened. There is no evidence of mitral regurgitation. Tricuspid Valve: The tricuspid valve leaflets are normal. There is trace tricuspid regurgitation. The right ventricular systolic pressure is calculated at 33 mmHg. Pulmonic Valve: The pulmonic valve appears normal. Pericardium: The pericardium appears normal. There is no pericardial effusion. Aorta: The aorta appears normal. Venous: The inferior vena cava appears normal in size. Measurements Chambers 2D Name Value Normal Range IVSd (2D) 0.94 cm (0.6 - 1.1) LVPWd (2D) 0.81 cm (0.6 - 1.1) LVIDd (2D) 3.6 cm (3.7 - 5.6) LVIDs (2D) 2.27 cm (2 - 3.8) LV FS (2D) 36.93 % - EF Teichholz (2D) 67.76 % - Ao root diameter (2D) 3.03 cm (2 - 3.7) Volumes/Mass Name Value Normal Range LA ESV SP 4CH (A/L) 16.89 ml - LA ESV SP 4CH (MOD) 15.52 ml - Diastolic/Systolic Function Name Value Normal Range MV E-wave Vmax 0.55 m/sec - MV deceleration time 200.89 msec - MV A-wave Vmax 0.68 m/sec - MV E:A ratio 0.82 ratio - Aortic Valve Name Value Normal Range AV Vmax 1.1 m/sec - AV VTI 15.9 cm - AV peak gradient 4.86 mmHg - AV mean gradient 2.59 mmHg - LVOT diameter 2 cm - LVOT Vmax 1.03 m/sec - LVOT VTI 15.87 cm - LVOT peak gradient 4.24 mmHg - LVOT mean gradient 2.41 mmHg - SV LVOT 49.77 ml - JOSÉ MIGUEL (continuity Vmax) 2.93 cm2 - JOSÉ MIGUEL (continuity VTI) 3.13 cm2 - Tricuspid Valve Name Value Normal Range TR Vmax 2.74 m/sec - TR peak gradient 303 mmHg - RAP 3 mmHg - RVSP 33 mmHg - IVC diameter 1.77 cm (1.2 - 2.3) Pulmonic Valve/Qp:Qs Name Value Normal Range PV Vmax 0.77 m/sec - PV peak gradient 2.4 mmHg - PV acceleration time 114.18 msec - Dela Cruz/IV: Voiding Method Indwelling Catheter IV Catheter Type [Left Forearm Peripheral IV ] IV Catheter Type [Right Peripheral IV Antecubital] IV Catheter Type [Right Hand] Peripheral IV IV Catheter Type [Right Wrist] Peripheral IV IV Catheter Type [Left Wrist] Peripheral IV IV Catheter Type [Left Peripheral IV Antecubital] IV Catheter Type [Right INT / Saline Lock Forearm] IV Catheter Type [Left Hand] Peripheral IV Active Medications - Current Medications Current Medications: Generic Name Dose Route Start Last Admin Trade Name Freq PRN Reason Stop Dose Admin Acetaminophen 650 mg 12/06/19 10:25 12/13/19 12:05 Tylenol FEEDTUBE 650 mg Q6H PRN Administration TEMP >/=100.3 Lipase/Protease/Amylase 1 each 11/23/19 11:[address] 10,500 Unit FEEDTUBE PRN PRN For Clogged Feeding Tube Chlordiazepoxide HCl 50 mg 12/04/19 14:00 12/13/19 14:14 Librium PO 50 mg Q8H LUCHO Administration Fentanyl 25 mcg 12/04/19 17:00 12/10/19 16:31 Duragesic TD 25 mcg Q3D LUCHO Administration Fentanyl 50 mcg 12/05/19 02:10 12/12/19 20:04 Sublimaze IV 50 mcg Q10MIN PRN Administration ANALGESIA Heparin Sodium (Porcine) 5,000 unit 11/23/19 22:00 12/13/19 09:23 Heparin SUB-Q 5,000 unit Q12HR LUCHO Administration Hydralazine HCl 10 mg 11/24/19 00:45 12/13/19 05:19 Apresoline IV 10 mg Q6H PRN Administration SBP > 160 Hydrophilic Ointment 1 applic 11/22/19 23:23 Vaseline Lip Therapy TP Q2HR PRN Dry Lips Hydroxyzine Pamoate 25 mg 12/06/19 10:00 12/13/19 09:22 Vistaril PO 25 mg BID LUCHO Administration Lactulose 30 gm 12/11/19 11:00 12/13/19 09:22 Cephulac PO 30 gm BID LUCHO Administration Lansoprazole 30 mg 11/27/19 10:00 12/13/19 09:22 Prevacid Solutab FEEDTUBE 30 mg QDAY LUCHO Administration Levetiracetam 500 mg 11/29/19 10:00 12/13/19 09:22 Keppra PO 500 mg BID LUCHO Administration Lorazepam 2 mg 11/26/19 11:09 12/13/19 05:19 Ativan IV 2 mg Q4H PRN Administration Agitation Mirtazapine 30 mg 12/06/19 10:00 12/13/19 09:22 Remeron PO 30 mg DAILY LUCHO Administration Morphine Sulfate 2 mg 12/12/19 18:40 12/12/19 19:01 Morphine IV 2 mg Q4H PRN Administration Pain, Moderate (4-6) Multi-Ingred Cream/Lotion/Oil/Oint 1 applic 11/22/19 23:23 Artificial Tears Ophth Oint OU Q4HR PRN Dry Eye(s) Ondansetron HCl 4 mg 12/10/19 07:53 12/10/19 09:51 Zofran IV 4 mg Q4H PRN Administration Nausea And Vomiting Quetiapine Fumarate 300 mg 12/07/19 22:00 12/12/19 22:35 Seroquel PO Not Given QHS LUCHO Scopolamine 1 each 12/12/19 15:00 12/12/19 17:35 Transderm-Scop TD 1 each Q3D LUCHO Administration Senna/Docusate Sodium 2 tab 12/10/19 10:00 12/13/19 09:23 Senokot S PO 2 tab BID LUCHO Administration Sertraline HCl 25 mg 12/06/19 10:00 12/13/19 09:23 Zoloft PO 25 mg QDAY LUCHO Administration Simple Syrup 15 ml 11/23/19 11:50 Simple Syrup FEEDTUBE PRN PRN Hypoglycemia Simple Syrup 30 ml 11/23/19 11:50 Simple Syrup FEEDTUBE PRN PRN Hypoglycemia Sodium Bicarbonate 325 mg 11/23/19 11:50 Sodium Bicarbonate FEEDTUBE PRN PRN For Clogged Feeding Tube Nutrition/Malnutrition Assess - Dietary Evaluation Nutrition/Malnutrition Findings: Nutrition Notes Start: 11/23/19 11:29 Freq: Status: Active Protocol: Document 12/12/19 10:46 LM (Rec: 12/12/19 10:47 LM [id number]) Nutrition Notes Initial or Follow up Brief Note Current Diagnosis Hypertension Other Pertinent Diagnosis Cardaic arrest, ETOH dependence, UTI Current Diet NPO Subjective/Other Information Pt NPO for procedure today. Nutrition Intervention Follow-Up By: 12/14/19 Additional Comments F/U for TF resart
[2019-12-13] MEDS: fentaNYL 25 MCG/HR PATCH 72HR TD SCH (17:42)
[2019-12-13] MEDS: QUEtiapine 100 MG TAB PO SCH (22:13)
[2019-12-14] MEDS: chlordiazePOXIDE 25 MG CAP PO SCH ×3 (05:00→22:18)
[2019-12-14] MEDS: ACETAMINOPHEN 325 MG/10.15 ML ORAL LIQD UNIT DOSE FEEDTUBE PRN ×3 (05:05→22:17)
[2019-12-14 09:02] LABS: Hematocrit 25.3 % (30.3-42.9); Hemoglobin 7.9 gm/dl (10.1-14.3)
[2019-12-14 09:31] LABS: Mean Corpuscular HGB Conc 33 % (30-34); Mean Corpuscular Volume 89 fl (79-97); Red Cell Distribution Width 19.2 % (13.2-15.2)
[2019-12-14 09:36] LABS: Platelet Count 476 K/mm3 (140-440)
[2019-12-14] MEDS: levETIRAcetam 500 MG/5 ML ORAL LIQD PO SCH ×2 (09:36→22:17)
[2019-12-14] MEDS: LANSOPRAZOLE 30 MG SOLUTAB FEEDTUBE SCH (09:36)
[2019-12-14] MEDS: LACTULOSE 20 GM/30 ML ORAL LIQD PO SCH ×2 (09:36→22:17)
[2019-12-14] MEDS: SENNOSIDES/DOCUSATE SODIUM 8.6/50 MG TAB PO SCH ×2 (09:36→22:18)
[2019-12-14] MEDS: HEPARIN 5,000 UNIT/1 ML VIAL SUB-Q SCH ×2 (09:37→22:19)
[2019-12-14] MEDS: SERTRALINE 25 MG TAB PO SCH (09:37)
[2019-12-14] MEDS: hydrOXYzine PAMOATE 25 MG CAP PO SCH ×2 (09:37→22:20)
[2019-12-14] MEDS: MIRTAZAPINE 30 MG TAB PO SCH (09:37)
[2019-12-14 11:17] LABS: Calcium 9.3 mg/dL (8.4-10.2)
--- NOTE | 2019-12-14 11:45 | Progress Note ---
Assessment and Plan Assessment and plan: Patient is a 54-year-old woman with a history of Hypertension, Depression, tobacco and alcohol dependency who presented to [facility] ED on 11/22/2019 due to cardiac arrest outside of the hospital. EMS found pt in PEA. Upon their arrival patient in sinus tachycardia. EMS were unable to intubate patient with a ET tube because she was clenching down therefore Joe airway placed per records. Patient received Narcan and Epinephrine. Patient's rhythm changed to PEA to sinus bradycardia, to PEA, then to sinus tach after receiving Narcan and Epinephrine. Per the ED physician who evaluated pt, Patient presented with a pulse, intermittent respirations, and bagging support via Joe airway with O2 sat of 100%. Accu-Chek of 71 obtained by EMS Status post cardiac arrest, etiology unknown Acute respiratory failure with hypoxia s/p Intubation via ETT >96 hours: Trach and PEG planned, CCM following Seizure disorder: treat with Keppra Presumed anoxic brain injury: Neurology is following Alcohol abuse: CIKY protocol Acute metabolic encephalopathy/toxic encephalopathy due to the above BHAVANA secondary to vasomotor nephropathy: treat with IVF Hypertension: watch bp closely, prn IV antihypertensives prn Distended abdomen: treat with NGT to suction Transaminitis with Ischemic hepatitis Acute cystitis with Sepsis, not sure POA, treated with antibiotics and this completed a few days 11/29/2019 ago no growth was noted on cultures no fever. We will continue off antibiotics at this time. Metabolic acidosis/alcoholic acidosis/lactic acidosis H. Influenzae, tracheobronchitis Hypernatremia: free water and monitor bmp closely Full code DVT ppx: sq heparin 12/04-: Patient failed CPAP trial became apneic according to documentation. No clinical change, continue current management, monitor H/H Awaiting labs. No new changes at this time opens eyes. Surgeon discussed trach and PEG with family but they want to get more information about hospice which they have been directed to the case managers. Patient overnight had a episode of vomiting. Zofran started. 12/11/19: I took over patient care on day 18, Patient remains intubated, daily weaning trails. Trach and PEG planned once family consents. Mother is Anh Jesus @ [phone]. CCT 31 minutes 12/12/19: transfuse PRBC, s/p trach and PEG 12/13/19: Trach and PEG done, New fevers today, suspected Aspiration Pneumonitis vs Atelectasis; get blood cultures and empirically treat with ABX, levaquin/flagyl IV combo. Renewed restraints. ARF improved drastically as Cr went from 2.8 to 1.9 overnigh. however, WBC skyrocketed to 38.3k from 18k. Will repeat bmp and cbc, CCT 33 minutes 12/14/19: WBC improved slightly, potassium 2.5, renal function continue to impr ove. replete potassium, still febrile, re-consulted ID; give free water flushes via PEG. Dispo: aggressive wean and once off vent will have to discharge home, no insurance. History Interval history: Patient was seen and examined. Follow-up on current diagnosis of Respiratory failure. Overnight uneventful as no events directly reported to me. Imaging, nursing note, chart, labs and old chart reviewed. Hospitalist Physical - Physical exam Narrative exam: Gen: critical ill, intubated HEENT: ETT in place Neck: supple, no adenopathy, no thyromegaly, no JVD CVS/Heart: Regular Tachycardia, normal S1S2, pulses present bilaterally Chest/Lungs: CTA B, Symmetrical chest expansion, good air entry bilaterally GI/Abdomen: soft, NTND, good bowel sounds, no guarding or rebound Neuro: doesnt follow commands Psych: not responding - Constitutional Vitals: Temp Pulse Resp BP Pulse Ox 100.7 F H 125 H 22 150/86 96 12/14/19 10:00 12/14/19 11:15 12/14/19 11:15 12/14/19 11:15 12/14/19 11:15 General appearance: Present: no acute distress, other (on vent with sedation) Results - Labs CBC & Chem 7: 12/14/19 08:48 12/14/19 10:31 Labs: Laboratory Last Values WBC 33.3 K/mm3 (4.5-11.0) H 12/14/19 08:48 RBC 2.70 M/mm3 (3.65-5.03) L 12/14/19 08:48 Hgb 7.9 gm/dl (10.1-14.3) L 12/14/19 08:48 Hgb 8.0 gm/dl (10.1-14.3) L 12/14/19 08:48 Hct 24.0 % (30.3-42.9) L 12/14/19 08:48 Hct 25.3 % (30.3-42.9) L 12/14/19 08:48 MCV 89 fl (79-97) 12/14/19 08:48 MCH 30 pg (28-32) 12/14/19 08:48 MCHC 33 % (30-34) 12/14/19 08:48 RDW 19.2 % (13.2-15.2) H 12/14/19 08:48 Plt Count 476 K/mm3 (140-440) H 12/14/19 08:48 Lymph % (Auto) 11.3 % (13.4-35.0) L 12/04/19 07:45 Cache % (Auto) 15.2 % (0.0-7.3) H 12/04/19 07:45 Eos % (Auto) 0.5 % (0.0-4.3) 12/04/19 07:45 Baso % (Auto) 0.6 % (0.0-1.8) 12/04/19 07:45 Lymph # 1.8 K/mm3 (1.2-5.4) 12/04/19 07:45 Cache # 2.4 K/mm3 (0.0-0.8) H 12/04/19 07:45 Eos # 0.1 K/mm3 (0.0-0.4) 12/04/19 07:45 Baso # 0.1 K/mm3 (0.0-0.1) 12/04/19 07:45 Add Manual Diff Complete 12/13/19 07:48 Total Counted 100 12/13/19 07:48 Seg Neutrophils % Cab Starter 12/13/19 07:48 Seg Neuts % (Manual) 93.0 % (40.0-70.0) H 12/13/19 07:48 Band Neutrophils % 3.0 % 12/13/19 07:48 Lymphocytes % (Manual) 1.0 % (13.4-35.0) L 12/13/19 07:48 Reactive Lymphs % (Man) 0 % 12/13/19 07:48 Monocytes % (Manual) 1.0 % (0.0-7.3) 12/13/19 07:48 Eosinophils % (Manual) 1.0 % (0.0-4.3) 12/13/19 07:48 Basophils % (Manual) 1.0 % (0.0-1.8) 12/13/19 07:48 Metamyelocytes % 0 % 12/13/19 07:48 Myelocytes % 0 % 12/13/19 07:48 Promyelocytes % 0 % 12/13/19 07:48 Blast Cells % 0 % 12/13/19 07:48 Nucleated RBC % Not Reportable 12/13/19 07:48 Seg Neutrophils # 11.5 K/mm3 (1.8-7.7) H 12/04/19 07:45 Seg Neutrophils # Man 35.6 K/mm3 (1.8-7.7) H 12/13/19 07:48 Band Neutrophils # 1.1 K/mm3 12/13/19 07:48 Lymphocytes # (Manual) 0.4 K/mm3 (1.2-5.4) L 12/13/19 07:48 Abs React Lymphs (Man) 0.0 K/mm3 12/13/19 07:48 Monocytes # (Manual) 0.4 K/mm3 (0.0-0.8) 12/13/19 07:48 Eosinophils # (Manual) 0.4 K/mm3 (0.0-0.4) 12/13/19 07:48 Basophils # (Manual) 0.4 K/mm3 (0.0-0.1) H 12/13/19 07:48 Metamyelocytes # 0.0 K/mm3 12/13/19 07:48 Myelocytes # 0.0 K/mm3 12/13/19 07:48 Promyelocytes # 0.0 K/mm3 12/13/19 07:48 Blast Cells # 0.0 K/mm3 12/13/19 07:48 Pathologist Review 12/13/19 07:48 WBC Morphology Not Reportable 12/01/19 08:23 Hypersegmented Neuts Not Reportable 12/13/19 07:48 Hyposegmented Neuts Not Reportable 12/13/19 07:48 Hypogranular Neuts Not Reportable 12/13/19 07:48 Smudge Cells Not Reportable 12/13/19 07:48 Toxic Granulation Not Reportable 12/13/19 07:48 Toxic Vacuolation Not Reportable 12/13/19 07:48 Dohle Bodies Not Reportable 12/13/19 07:48 Pelger-Huet Anomaly Not Reportable 12/13/19 07:48 Dominique Rods Not Reportable 12/13/19 07:48 Platelet Estimate Consistent w auto 12/13/19 07:48 Clumped Platelets Not Reportable 12/13/19 07:48 Plt Clumps, EDTA Not Reportable 12/13/19 07:48 Large Platelets Not Reportable 12/13/19 07:48 Giant Platelets Not Reportable 12/13/19 07:48 Platelet Satelliting Not Reportable 12/13/19 07:48 Plt Morphology Comment Not Reportable 12/13/19 07:48 RBC Morphology Not Reportable 12/13/19 07:48 Dimorphic RBCs Not Reportable 12/13/19 07:48 Polychromasia Not Reportable 12/13/19 07:48 Hypochromasia 1+ 12/13/19 07:48 Poikilocytosis Not Reportable 12/13/19 07:48 Anisocytosis 1+ 12/13/19 07:48 Microcytosis Not Reportable 12/13/19 07:48 Macrocytosis Few 12/13/19 07:48 Spherocytes Not Reportable 12/13/19 07:48 Pappenheimer Bodies Not Reportable 12/13/19 07:48 Sickle Cells Not Reportable 12/13/19 07:48 Target Cells Not Reportable 12/13/19 07:48 Tear Drop Cells Not Reportable 12/13/19 07:48 Ovalocytes Not Reportable 12/13/19 07:48 Helmet Cells Not Reportable 12/13/19 07:48 [place] Bodies Not Reportable 12/13/19 07:48 [place] Rings Not Reportable 12/13/19 07:48 Jamshid Cells Not Reportable 12/13/19 07:48 Bite Cells Not Reportable 12/13/19 07:48 Crenated Cell Not Reportable 12/13/19 07:48 Elliptocytes Not Reportable 12/13/19 07:48 Acanthocytes (Spur) Not Reportable 12/13/19 07:48 Rouleaux Not Reportable 12/13/19 07:48 Hemoglobin C Crystals Not Reportable 12/13/19 07:48 Schistocytes Not Reportable 12/13/19 07:48 Malaria parasites Not Reportable 12/13/19 07:48 Gregg Bodies Not Reportable 12/13/19 07:48 Hem Pathologist Commnt Sent to pathology 12/13/19 07:48 PT 17.0 Sec. (12.2-14.9) H 11/23/19 03:47 INR 1.36 (0.87-1.13) H 11/23/19 03:47 APTT 128.2 Sec. (24.2-36.6) H* 11/23/19 03:47 Heparin Anti-Xa Level 0.31 U.I./ml (0.3-0.7) 11/23/19 09:03 ABG pH 7.437 pH Units (7.350-7.450) 12/03/19 20:00 ABG pCO2 50.7 mm Hg 12/03/19 20:00 ABG pO2 68.3 mm Hg (80.0-90.0) L 12/03/19 20:00 ABG HCO3 33.5 mmol/L (20.0-26.0) H 12/03/19 20:00 ABG O2 Saturation 93.5 % (95.0-99.0) L 12/03/19 20:00 ABG O2 Content 9.5 (0.0-44) 12/03/19 20:00 ABG Base Excess 8.4 mmol/L (-2.0-3.0) H 12/03/19 20:00 ABG Hemoglobin 7.3 gm/dl (12.0-16.0) L 12/03/19 20:00 ABG Carboxyhemoglobin 2.3 % (0.0-5.0) 12/03/19 20:00 ABG Methemoglobin 0.4 % (0.0-1.5) 12/03/19 20:00 Oxyhemoglobin 90.9 % (95.0-99.0) L 12/03/19 20:00 FiO2 30 % 12/03/19 20:00 Sodium 153 mmol/L (137-145) H 12/14/19 10:31 Potassium 2.5 mmol/L (3.6-5.0) L* 12/14/19 10:31 Chloride 114.9 mmol/L (98-107) H 12/14/19 10:31 Carbon Dioxide 20 mmol/L (22-30) L 12/14/19 10:31 Anion Gap 21 mmol/L 12/14/19 10:31 BUN 38 mg/dL (7-17) H 12/14/19 10:31 Creatinine 1.4 mg/dL (0.7-1.2) H 12/14/19 10:31 Estimated GFR 47 ml/min 12/14/19 10:31 BUN/Creatinine Ratio 27 % 12/14/19 10:31 Glucose 177 mg/dL (65-100) H 12/14/19 10:31 POC Glucose 182 (70-105) H 12/14/19 05:36 Lactic Acid 1.80 mmol/L (0.7-2.0) 11/25/19 05:05 Calcium 9.3 mg/dL (8.4-10.2) 12/14/19 10:31 Ionized Calcium 4.5 mg/dL (4.8-5.6) L 11/23/19 06:32 Phosphorus 4.20 mg/dL (2.5-4.5) D 11/28/19 08:59 Magnesium 2.30 mg/dL (1.7-2.3) 11/29/19 13:41 Total Bilirubin 0.40 mg/dL (0.1-1.2) 12/13/19 07:48 AST 27 units/L (5-40) 12/13/19 07:48 ALT 26 units/L (7-56) 12/13/19 07:48 Alkaline Phosphatase 316 units/L (35-129) H 12/13/19 07:48 Ammonia 42.0 umol/L (25-60) 11/29/19 13:41 Total Creatine Kinase 139 units/L (30-135) H 11/22/19 23:27 CK-MB (CK-2) 8.3 ng/mL (0.0-4.0) H 11/22/19 23: CK-MB (CK-2) Rel Index 5.9 (0-4) H 11/22/19 23:27 Troponin T < 0.010 ng/mL (0.00-0.029) 11/22/19 23:27 Total Protein 6.8 g/dL (6.3-8.2) 12/13/19 07:48 Albumin 2.4 g/dL (3.9-5) L 12/13/19 07:48 Albumin/Globulin Ratio 0.5 % 12/13/19 07:48 Lipase 18 units/L (13-60) 11/23/19 00:34 Procalcitonin 1.09 ng/mL (<0.15) 11/23/19 04:53 Urine Color Yellow (Yellow) 11/22/19 23:17 Urine Turbidity Cloudy (Clear) 11/22/19 23:17 Urine pH 6.0 (5.0-7.0) 11/22/19 23:17 Ur Specific [place] 1.010 (1.003-1.030) 11/22/19 23:17 Urine Protein >500 mg/dL (Negative) 11/22/19 23:17 Urine Glucose (UA) >=500 mg/dL (Negative) 11/22/19 23:17 Urine Ketones 20 mg/dL (Negative) 11/22/19 23:17 Urine Blood Mod (Negative) 11/22/19 23:17 Urine Nitrite Neg (Negative) 11/22/19 23:17 Urine Bilirubin Neg (Negative) 11/22/19 23:17 Urine Urobilinogen 4.0 mg/dL (<2.0) 11/22/19 23:17 Ur Leukocyte Esterase Neg (Negative) 11/22/19 23:17 Urine WBC (Auto) 40.0 /HPF (0.0-6.0) H 11/22/19 23:17 Urine RBC (Auto) 10.0 /HPF (0.0-6.0) 11/22/19 23:17 U Epithel Cells (Auto) 1.0 /HPF (0-13.0) 11/22/19 23:17 Urine Bacteria (Auto) 2+ /HPF (Negative) 11/22/19 23:17 Urine Mucus Few /HPF 11/22/19 23:17 Salicylates < 0.3 mg/dL (2.8-20.0) L 11/22/19 23:27 Urine Opiates Screen Presumptive negative 11/22/19 23:17 Urine Methadone Screen Presumptive negative 11/22/19 23:17 Acetaminophen < 5.0 ug/mL (10.0-30.0) L 11/22/19 23:27 Ur Barbiturates Screen Presumptive negative 11/22/19 23:17 Ur Phencyclidine Scrn Presumptive negative 11/22/19 23:17 Ur Amphetamines Screen Presumptive negative 11/22/19 23:17 U Benzodiazepines Scrn Presumptive negative 11/22/19 23:17 Urine Cocaine Screen Presumptive negative 11/22/19 23:17 U Marijuana (THC) Screen Presumptive negative 11/22/19 23:17 Drugs of Abuse Note Disclamer 11/22/19 23:17 Plasma/Serum Alcohol 0.08 % (0-0.07) H 11/22/19 23:27 Hepatitis A IgM Ab Non-reactive (NonReactive) 11/23/19 01:19 Hep Bs Antigen Non-reactive (Negative) 11/23/19 01:19 Hep B Core IgM Ab Non-reactive (NonReactive) 11/23/19 01:19 Hepatitis C Antibody Non-reactive (NonReactive) 11/23/19 01:19 Blood Type O POSITIVE 12/12/19 10:30 Antibody Screen Negative 12/12/19 10:30 Crossmatch See Detail 12/12/19 10:30 Microbiology: Microbiology 12/13/19 21:06 Peripheral/Venous Blood Culture - Preliminary Culture in Progress 12/13/19 21:39 Peripheral/Venous Blood Culture - Preliminary Culture in Progress - Diagnostic Impressions Diagnostic Impressions: Echocardiogram 11/23/19 03:58 Transthoracic Echocardiogram Indication: Cardiac arrest BP: 131/89 HR: 115 Conclusions *The study quality is technically difficult. *Global left ventricular wall motion and contractility are within normal limits. *The estimated ejection fraction is 55-60%. *Abnormal left ventricular diastolic filling is observed, consistent with impaired relaxation. *There is no pericardial effusion. Findings Procedure Info: The study quality is technically difficult. The study was technically limited due to the patient's inability to lay in the left lateral decubitus position. Left Ventricle: The left ventricular chamber size is normal. There is no left ventricular hypertrophy. Global left ventricular wall motion and contractility are within normal limits. Global left ventricular systolic function is normal. The estimated ejection fraction is 55-60%. Abnormal left ventricular diastolic filling is observed, consistent with impaired relaxation. Left Atrium: The left atrial chamber size is normal. Aortic Valve: The aortic valve leaflets are mildly thickened. Mitral Valve: The mitral valve leaflets are mildly thickened. There is no evidence of mitral regurgitation. Tricuspid Valve: The tricuspid valve leaflets are normal. There is trace tricuspid regurgitation. The right ventricular systolic pressure is calculated at 33 mmHg. Pulmonic Valve: The pulmonic valve appears normal. Pericardium: The pericardium appears normal. There is no pericardial effusion. Aorta: The aorta appears normal. Venous: The inferior vena cava appears normal in size. Measurements Chambers 2D Name Value Normal Range IVSd (2D) 0.94 cm (0.6 - 1.1) LVPWd (2D) 0.81 cm (0.6 - 1.1) LVIDd (2D) 3.6 cm (3.7 - 5.6) LVIDs (2D) 2.27 cm (2 - 3.8) LV FS (2D) 36.93 % - EF Teichholz (2D) 67.76 % - Ao root diameter (2D) 3.03 cm (2 - 3.7) Volumes/Mass Name Value Normal Range LA ESV SP 4CH (A/L) 16.89 ml - LA ESV SP 4CH (MOD) 15.52 ml - Diastolic/Systolic Function Name Value Normal Range MV E-wave Vmax 0.55 m/sec - MV deceleration time 200.89 msec - MV A-wave Vmax 0.68 m/sec - MV E:A ratio 0.82 ratio - Aortic Valve Name Value Normal Range AV Vmax 1.1 m/sec - AV VTI 15.9 cm - AV peak gradient 4.86 mmHg - AV mean gradient 2.59 mmHg - LVOT diameter 2 cm - LVOT Vmax 1.03 m/sec - LVOT VTI 15.87 cm - LVOT peak gradient 4.24 mmHg - LVOT mean gradient 2.41 mmHg - SV LVOT 49.77 ml - JOSÉ MIGUEL (continuity Vmax) 2.93 cm2 - JOSÉ MIGUEL (continuity VTI) 3.13 cm2 - Tricuspid Valve Name Value Normal Range TR Vmax 2.74 m/sec - TR peak gradient 303 mmHg - RAP 3 mmHg - RVSP 33 mmHg - IVC diameter 1.77 cm (1.2 - 2.3) Pulmonic Valve/Qp:Qs Name Value Normal Range PV Vmax 0.77 m/sec - PV peak gradient 2.4 mmHg - PV acceleration time 114.18 msec - Dela Cruz/IV: Voiding Method Indwelling Catheter IV Catheter Type [Left Forearm Peripheral IV ] IV Catheter Type [Right Peripheral IV Antecubital] IV Catheter Type [Right Hand] Peripheral IV IV Catheter Type [Right Wrist] Peripheral IV IV Catheter Type [Left Wrist] Peripheral IV IV Catheter Type [Left Peripheral IV Antecubital] IV Catheter Type [Right INT / Saline Lock Forearm] IV Catheter Type [Left Hand] Peripheral IV Active Medications - Current Medications Current Medications: Generic Name Dose Route Start Last Admin Trade Name Freq PRN Reason Stop Dose Admin Acetaminophen 650 mg 12/06/19 10:25 12/14/19 05:05 Tylenol FEEDTUBE 650 mg Q6H PRN Administration TEMP >/=100.3 Lipase/Protease/Amylase 1 each 11/23/19 11:[address] 10,500 Unit FEEDTUBE PRN PRN For Clogged Feeding Tube Chlordiazepoxide HCl 50 mg 12/04/19 14:00 12/14/19 05:00 Librium PO 50 mg Q8H LUCHO Administration Fentanyl 25 mcg 12/04/19 17:00 12/13/19 17:42 Duragesic TD 25 mcg Q3D LUCHO Administration Fentanyl 50 mcg 12/05/19 02:10 12/12/19 20:04 Sublimaze IV 50 mcg Q10MIN PRN Administration ANALGESIA Heparin Sodium (Porcine) 5,000 unit 11/23/19 22:00 12/14/19 09:37 Heparin SUB-Q 5,000 unit Q12HR LUCHO Administration Hydralazine HCl 10 mg 11/24/19 00:45 12/13/19 05:19 Apresoline IV 10 mg Q6H PRN Administration SBP > 160 Hydrophilic Ointment 1 applic 11/22/19 23:23 Vaseline Lip Therapy TP Q2HR PRN Dry Lips Hydroxyzine Pamoate 25 mg 12/06/19 10:00 12/14/19 09:37 Vistaril PO 25 mg BID LUCHO Administration Potassium Chloride 10 meq in 100 mls @ 100 mls/hr 12/14/19 12:00 Kcl 10meq/100ml IV 12/14/19 15:59 Q1H LUCHO Lactulose 30 gm 12/11/19 11:00 12/14/19 09:36 Cephulac PO 30 gm BID LUCHO Administration Lansoprazole 30 mg 11/27/19 10:00 12/14/19 09:36 Prevacid Solutab FEEDTUBE 30 mg QDAY LUCHO Administration Levetiracetam 500 mg 11/29/19 10:00 12/14/19 09:36 Keppra PO 500 mg BID LUCHO Administration Lorazepam 2 mg 11/26/19 11:09 12/13/19 05:19 Ativan IV 2 mg Q4H PRN Administration Agitation Mirtazapine 30 mg 12/06/19 10:00 12/14/19 09:37 Remeron PO 30 mg DAILY LUCHO Administration Morphine Sulfate 2 mg 12/12/19 18:40 12/12/19 19:01 Morphine IV 2 mg Q4H PRN Administration Pain, Moderate (4-6) Multi-Ingred Cream/Lotion/Oil/Oint 1 applic 11/22/19 23:23 Artificial Tears Ophth Oint OU Q4HR PRN Dry Eye(s) Ondansetron HCl 4 mg 12/10/19 07:53 12/10/19 09:51 Zofran IV 4 mg Q4H PRN Administration Nausea And Vomiting Potassium Chloride 60 meq 12/14/19 11:36 Potassium Chloride FEEDTUBE 12/14/19 11:37 ONCE ONE Quetiapine Fumarate 300 mg 12/07/19 22:00 12/13/19 22:13 Seroquel PO 300 mg QHS LUCHO Administration Scopolamine 1 each 12/12/19 15:00 12/12/19 17:35 Transderm-Scop TD 1 each Q3D LUCHO Administration Senna/Docusate Sodium 2 tab 12/10/19 10:00 12/14/19 09:36 Senokot S PO 2 tab BID LUCHO Administration Sertraline HCl 25 mg 12/06/19 10:00 12/14/19 09:37 Zoloft PO 25 mg QDAY LUCHO Administration Simple Syrup 15 ml 11/23/19 11:50 Simple Syrup FEEDTUBE PRN PRN Hypoglycemia Simple Syrup 30 ml 11/23/19 11:50 Simple Syrup FEEDTUBE PRN PRN Hypoglycemia Sodium Bicarbonate 325 mg 11/23/19 11:50 Sodium Bicarbonate FEEDTUBE PRN PRN For Clogged Feeding Tube Nutrition/Malnutrition Assess - Dietary Evaluation Nutrition/Malnutrition Findings: Nutrition Notes Start: 11/23/19 11:29 Freq: Status: Active Protocol: Document 12/12/19 10:46 LM (Rec: 12/12/19 10:47 LM [email or web address]) Nutrition Notes Initial or Follow up Brief Note Current Diagnosis Hypertension Other Pertinent Diagnosis Cardaic arrest, ETOH dependence, UTI Current Diet NPO Subjective/Other Information Pt NPO for procedure today. Nutrition Intervention Follow-Up By: 12/14/19 Additional Comments F/U for TF resart
[2019-12-14] MEDS: POTASSIUM CHLORIDE 10 MEQ 10 MEQ/100 ML BAG IV SCH ×4 (12:16→15:06)
[2019-12-14] MEDS ORDERED: POTASSIUM CHLORIDE 20 MEQ PACKET FEEDTUBE ONE (13:00)
[2019-12-14] MEDS: TAMSULOSIN 0.4 MG CAP PO SCH (14:00)
--- NOTE | 2019-12-14 15:00 | Progress Note ---
Assessment and Plan Acute cardiopulmonary arrest with ROSC Acute hypoxemic respiratory failure on MVS Acute metabolic-toxic encephalopathy Metabolic acidosis/alcoholic acidosis/Lactic acidosis Ischemic hepatitis Leucocytosis with lactic acidosis Tobacco use disorder ALcohol use Disorder Hypokalemia High grade fevers - follow C&S - continue free water flushes at 250 ml's q4h re: hypernatremia - BMP in am - continue Reglan for G.I. motility - continue bronchodilators with routine trach care and pulmonary hygiene per RT - VAP bundle addressed (continue aspiration precautions, HOB > 40) - continue daily SAT's and assessment for readiness for SBT (For PSV trial today) - continue to rest on AC mode qhs - continue Seroquel for tentative delirium and to spare IV sedation - continue Librium but increase to 75 mg po q8h - s/p empiric Antibiotics per ID recommendations; de-escalate based on HILARIO /sensitivities / clinical progress - s/p CIWA protocol - Continue Intermittent sedation until patient's neurologic state can be better evaluated - begin Seroquel for agitation / to spare IV sedatives - Continue VTE and Stress ulcer prophylaxis - Continue enteric nutritional support. Monitor glycemic control, with target blood glucose 140-180 mg/dL while critically ill (Avoid hypoglycemia) - Continue daily SAT assessment as tolerated - Continue to wean supplemental oxygen for target O2 sat's > 90% - ABG and CXR prn - Continue to trend leukocytosis and lactic acidosis - Continue to treat for hepatic encephalopathy- especially with elevated ammonia levels- lactulose - Continue thiamine, multivitamin and electrolyte replacement - Continue to avoid nephrotoxins, adjust all medications fro GFR and CrCL - Continue to avoid benzodiazepines , as much as possible, to reduce the possibility of delirium - Continue prn analgesia per CPOT score - Continue to maintain of sleep-wake cycle, avoid delirium - PT/OT/ROM exercises- awaiting PT/OT evaluation - Continue mobility protocol and skin assessment per protocol for pressure ulcer prevention - Continue to monitor for clinical seizures - Continue Nicotine withdrawal precautions, alcohol withdrawal precautions - continue other care per attending / other consultants ..... re-evaluate in am & prn CONDITION: CRITICAL PROGNOSIS: GUARDED CODE STATUS: FULL CODE The high probability of a clinically significant, sudden or life-threatening d eterioration of the [respiratory, cardiovascular,GI/hepatology] system(s) required my full and direct attention, intervention and personal management. The aggregate critical care time was [35] minutes without overlap. Time includes spent on; [x] Data Review and interpretation [x] Patient assessment and monitoring of vital signs [x] Documentation [x] Medication orders and management Subjective Date of service: 12/14/19 Principal diagnosis: Ac cardiopulmonary arrest; Ac hypoxemic resp failure; Acute encephalopathy Interval history: Patient is seen today for: Acute cardiopulmonary arrest with ROSC; Acute hypoxemic respiratory failure; Acute metabolic-toxic encephalopathy; Ischemic hepatitis; Leucocytosis with lactic acidosis; Tobacco use disorder; Alcohol use Disorder; Hypokalemia; High grade fevers Seen and examined at bedside; 24hour events reviewed; nursing and respiratory care staff consulted; no adverse overnight events reported to me; resting peacefully in bed; weaning tenuously still Objective Vital Signs - 12hr 12/14/19 12/14/19 12/14/19 03:15 03:30 03:31 Temperature 101.3 F H Pulse Rate 136 H 135 H Pulse Rate [ From Monitor] Respiratory 22 22 Rate Blood Pressure 144/84 147/86 O2 Sat by Pulse 96 95 Oximetry 12/14/19 12/14/19 12/14/19 03:45 04:00 04:15 Temperature Pulse Rate 136 H 135 H 134 H Pulse Rate [ 136 H From Monitor] Respiratory 20 23 23 Rate Blood Pressure 154/90 151/87 152/87 O2 Sat by Pulse 95 95 95 Oximetry 12/14/19 12/14/19 12/14/19 04:30 04:45 05:00 Temperature Pulse Rate 135 H 136 H 136 H Pulse Rate [ From Monitor] Respiratory 21 21 24 Rate Blood Pressure 158/88 148/84 156/85 O2 Sat by Pulse 95 95 95 Oximetry 12/14/19 12/14/19 12/14/19 05:12 05:15 05:30 Temperature Pulse Rate 138 H 139 H 142 H Pulse Rate [ From Monitor] Respiratory 24 26 H Rate Blood Pressure 156/85 155/87 143/72 O2 Sat by Pulse 97 96 95 Oximetry 12/14/19 12/14/19 12/14/19 05:45 06:00 06:15 Temperature 99.1 F Pulse Rate 144 H 142 H 138 H Pulse Rate [ From Monitor] Respiratory 26 H 26 H 22 Rate Blood Pressure 139/69 139/69 124/63 O2 Sat by Pulse 95 95 95 Oximetry 12/14/19 12/14/19 12/14/19 06:30 06:45 07:00 Temperature Pulse Rate 139 H 138 H 137 H Pulse Rate [ From Monitor] Respiratory 22 22 21 Rate Blood Pressure 122/66 120/70 117/65 O2 Sat by Pulse 95 95 95 Oximetry 12/14/19 12/14/19 12/14/19 07:15 07:30 07:45 Temperature Pulse Rate 135 H 135 H 135 H Pulse Rate [ From Monitor] Respiratory 22 19 22 Rate Blood Pressure 108/72 135/74 122/64 O2 Sat by Pulse 95 95 94 Oximetry 12/14/19 12/14/19 12/14/19 08:00 08:15 08:25 Temperature Pulse Rate 135 H 133 H 132 H Pulse Rate [ 137 H From Monitor] Respiratory 23 22 5 L Rate Blood Pressure 122/66 126/70 122/66 O2 Sat by Pulse 94 93 93 Oximetry 12/14/19 12/14/19 12/14/19 08:30 08:45 09:00 Temperature Pulse Rate 131 H 132 H 131 H Pulse Rate [ From Monitor] Respiratory 20 25 H 24 Rate Blood Pressure 128/66 132/76 139/74 O2 Sat by Pulse 92 93 94 Oximetry 12/14/19 12/14/19 12/14/19 09:15 09:30 09:45 Temperature Pulse Rate 129 H 127 H 127 H Pulse Rate [ From Monitor] Respiratory 25 H 24 21 Rate Blood Pressure 129/70 140/77 136/73 O2 Sat by Pulse 94 94 95 Oximetry 12/14/19 12/14/19 12/14/19 10:00 10:15 10:30 Temperature 100.7 F H Pulse Rate 126 H 126 H 127 H Pulse Rate [ 126 H From Monitor] Respiratory 20 24 25 H Rate Blood Pressure 136/75 147/82 149/80 O2 Sat by Pulse 95 96 96 Oximetry 12/14/19 12/14/19 12/14/19 10:45 11:00 11:15 Temperature Pulse Rate 127 H 127 H 125 H Pulse Rate [ From Monitor] Respiratory 21 24 22 Rate Blood Pressure 150/82 153/91 150/86 O2 Sat by Pulse 96 97 96 Oximetry 12/14/19 12/14/19 12/14/19 11:30 11:45 12:00 Temperature Pulse Rate 124 H 124 H 121 H Pulse Rate [ 121 H From Monitor] Respiratory 23 22 20 Rate Blood Pressure 150/86 155/85 159/84 O2 Sat by Pulse 95 95 96 Oximetry 12/14/19 12/14/19 12/14/19 12:15 12:30 12:45 Temperature Pulse Rate 123 H 125 H 126 H Pulse Rate [ From Monitor] Respiratory 25 H 30 H 17 Rate Blood Pressure 154/87 153/90 143/88 O2 Sat by Pulse 96 96 96 Oximetry 12/14/19 12/14/19 12/14/19 13:00 13:15 13:30 Temperature Pulse Rate 127 H 128 H 125 H Pulse Rate [ From Monitor] Respiratory 31 H 38 H 29 H Rate Blood Pressure 151/93 147/91 142/84 O2 Sat by Pulse 96 96 97 Oximetry 12/14/19 12/14/19 13:45 14:00 Temperature Pulse Rate 125 H 125 H Pulse Rate [ From Monitor] Respiratory 26 H 21 Rate Blood Pressure 144/88 143/89 O2 Sat by Pulse 96 95 Oximetry Constitutional: no acute distress, other (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, orally intuabted ETT at 23 cm at the lip to mVS, mild dys-synchrony) Eyes: non-icteric ENT: oropharynx moist, other (s/p trach) Neck: supple, no lymphadenopathy, no JVD Effort: mildly labored Ascultation: Bilateral: diminished breath sounds, rhonchi Percussion: Bilateral: not dull Cardiovascular: regular rate and rhythm (tachycardia), other (S1,S2) Gastrointestinal: normoactive bowel sounds, soft, non-tender, non-distended Integumentary: normal Extremities: no cyanosis, no edema, pulses normal, no ischemia or petechiae Neurologic: unable to assess, other (awake but not tracking voice ) Psychiatric: other (Psychiatric: Unable to assess) CBC and BMP: 12/16/19 05:44 12/16/19 05:44 ABG, PT/INR, D-dimer: ABG ABG pH 7.437 pH Units (7.350-7.450) 12/03/19 20:00 ABG pCO2 50.7 mm Hg 12/03/19 20:00 ABG pO2 68.3 mm Hg (80.0-90.0) L 12/03/19 20:00 ABG O2 Saturation 93.5 % (95.0-99.0) L 12/03/19 20:00 PT/INR, D-dimer PT 17.0 Sec. (12.2-14.9) H 11/23/19 03:47 INR 1.36 (0.87-1.13) H 11/23/19 03:47 Abnormal lab findings: Abnormal Labs 11/22/19 11/22/19 11/22/19 23:17 23:18 23:27 WBC 21.2 H RBC 3.59 L Hgb 9.8 L Hct MCH 27 L RDW 18.6 H Plt Count 454 H Lymph % (Auto) Arthur % (Auto) Arthur # Seg Neutrophils % Seg Neuts % (Manual) 86.0 H Lymphocytes % (Manual) 9.0 L Seg Neutrophils # Seg Neutrophils # Man 18.2 H Lymphocytes # (Manual) Monocytes # (Manual) 1.1 H Basophils # (Manual) PT INR APTT ABG pH ABG pO2 ABG HCO3 ABG O2 Saturation ABG Base Excess ABG Hemoglobin Oxyhemoglobin Sodium Potassium Chloride Carbon Dioxide BUN Creatinine Glucose POC Glucose 53 L Lactic Acid Calcium Ionized Calcium Phosphorus Magnesium Total Bilirubin AST ALT Alkaline Phosphatase Ammonia Total Creatine Kinase CK-MB (CK-2) CK-MB (CK-2) Rel Index Total Protein Albumin Urine WBC (Auto) 40.0 H Salicylates Acetaminophen Plasma/Serum Alcohol Crossmatch 11/22/19 11/22/19 11/22/19 23:27 23:27 23:27 WBC RBC Hgb Hct MCH RDW Plt Count Lymph % (Auto) Arthur % (Auto) Arthur # Seg Neutrophils % Seg Neuts % (Manual) Lymphocytes % (Manual) Seg Neutrophils # Seg Neutrophils # Man Lymphocytes # (Manual) Monocytes # (Manual) Basophils # (Manual) PT INR APTT ABG pH ABG pO2 ABG HCO3 ABG O2 Saturation ABG Base Excess ABG Hemoglobin Oxyhemoglobin Sodium Potassium 2.4 L* Chloride 85.1 L Carbon Dioxide 19 L BUN Creatinine 0.5 L Glucose 261 H POC Glucose Lactic Acid Calcium Ionized Calcium Phosphorus Magnesium Total Bilirubin AST 609 H ALT 152 H Alkaline Phosphatase 160 H Ammonia 117.0 H Total Creatine Kinase 139 H CK-MB (CK-2) 8.3 H CK-MB (CK-2) Rel Index 5.9 H Total Protein Albumin 3.6 L Urine WBC (Auto) Salicylates < 0.3 L Acetaminophen Plasma/Serum Alcohol Crossmatch 11/22/19 11/22/19 11/23/19 23:27 23:27 01:10 WBC RBC Hgb Hct MCH RDW Plt Count Lymph % (Auto) Arthur % (Auto) Arthur # Seg Neutrophils % Seg Neuts % (Manual) Lymphocytes % (Manual) Seg Neutrophils # Seg Neutrophils # Man Lymphocytes # (Manual) Monocytes # (Manual) Basophils # (Manual) PT INR APTT ABG pH 7.273 L ABG pO2 209.7 H ABG HCO3 ABG O2 Saturation 99.2 H ABG Base Excess -3.9 L ABG Hemoglobin 10.6 L Oxyhemoglobin 93.9 L Sodium Potassium Chloride Carbon Dioxide BUN Creatinine Glucose POC Glucose Lactic Acid Calcium Ionized Calcium Phosphorus Magnesium Total Bilirubin AST ALT Alkaline Phosphatase Ammonia Total Creatine Kinase CK-MB (CK-2) CK-MB (CK-2) Rel Index Total Protein Albumin Urine WBC (Auto) Salicylates Acetaminophen < 5.0 L Plasma/Serum Alcohol 0.08 H Crossmatch 11/23/19 11/23/19 11/23/19 01:19 01:19 03:47 WBC RBC Hgb Hct MCH RDW Plt Count Lymph % (Auto) Arthur % (Auto) Arthur # Seg Neutrophils % Seg Neuts % (Manual) Lymphocytes % (Manual) Seg Neutrophils # Seg Neutrophils # Man Lymphocytes # (Manual) Monocytes # (Manual) Basophils # (Manual) PT 16.3 H INR 1.29 H APTT ABG pH ABG pO2 ABG HCO3 ABG O2 Saturation ABG Base Excess ABG Hemoglobin Oxyhemoglobin Sodium Potassium Chloride Carbon Dioxide BUN Creatinine Glucose POC Glucose Lactic Acid 2.10 H* 5.00 H* Calcium Ionized Calcium Phosphorus Magnesium Total Bilirubin AST ALT Alkaline Phosphatase Ammonia Total Creatine Kinase CK-MB (CK-2) CK-MB (CK-2) Rel Index Total Protein Albumin Urine WBC (Auto) Salicylates Acetaminophen Plasma/Serum Alcohol Crossmatch 11/23/19 11/23/19 11/23/19 03:47 03:47 04:53 WBC RBC Hgb 9.4 L Hct MCH RDW Plt Count Lymph % (Auto) Arthur % (Auto) Arthur # Seg Neutrophils % Seg Neuts % (Manual) Lymphocytes % (Manual) Seg Neutrophils # Seg Neutrophils # Man Lymphocytes # (Manual) Monocytes # (Manual) Basophils # (Manual) PT 17.0 H INR 1.36 H APTT 128.2 H* ABG pH ABG pO2 ABG HCO3 ABG O2 Saturation ABG Base Excess ABG Hemoglobin Oxyhemoglobin Sodium Potassium Chloride Carbon Dioxide 18 L BUN Creatinine 0.5 L Glucose 105 H POC Glucose Lactic Acid Calcium 8.3 L Ionized Calcium Phosphorus 2.40 L Magnesium Total Bilirubin 1.30 H AST 761 H ALT 158 H Alkaline Phosphatase 143 H Ammonia Total Creatine Kinase CK-MB (CK-2) CK-MB (CK-2) Rel Index Total Protein Albumin 2.8 L Urine WBC (Auto) Salicylates Acetaminophen Plasma/Serum Alcohol Crossmatch 11/23/19 11/23/19 11/23/19 05:12 06:32 06:32 WBC 16.8 H RBC 3.31 L Hgb 8.9 L Hct 28.7 L MCH 27 L RDW 18.6 H Plt Count Lymph % (Auto) Arthur % (Auto) Arthur # Seg Neutrophils % Seg Neuts % (Manual) 94.0 H Lymphocytes % (Manual) 1.0 L Seg Neutrophils # Seg Neutrophils # Man 15.8 H Lymphocytes # (Manual) 0.2 L Monocytes # (Manual) Basophils # (Manual) PT INR APTT ABG pH ABG pO2 ABG HCO3 ABG O2 Saturation ABG Base Excess -3.2 L ABG Hemoglobin 9.0 L Oxyhemoglobin 93.6 L Sodium Potassium Chloride Carbon Dioxide BUN Creatinine Glucose POC Glucose Lactic Acid Calcium Ionized Calcium 4.5 L Phosphorus Magnesium Total Bilirubin AST ALT Alkaline Phosphatase Ammonia Total Creatine Kinase CK-MB (CK-2) CK-MB (CK-2) Rel Index Total Protein Albumin Urine WBC (Auto) Salicylates Acetaminophen Plasma/Serum Alcohol Crossmatch 11/23/19 11/24/19 11/24/19 06:32 04:35 04:35 WBC RBC Hgb Hct MCH RDW Plt Count Lymph % (Auto) Arthur % (Auto) Arthur # Seg Neutrophils % Seg Neuts % (Manual) Lymphocytes % (Manual) Seg Neutrophils # Seg Neutrophils # Man Lymphocytes # (Manual) Monocytes # (Manual) Basophils # (Manual) PT INR APTT ABG pH ABG pO2 ABG HCO3 ABG O2 Saturation ABG Base Excess ABG Hemoglobin Oxyhemoglobin Sodium Potassium Chloride Carbon Dioxide BUN Creatinine Glucose POC Glucose Lactic Acid 3.30 H* Calcium Ionized Calcium Phosphorus Magnesium 1.40 L Total Bilirubin AST ALT Alkaline Phosphatase Ammonia 98.0 H Total Creatine Kinase CK-MB (CK-2) CK-MB (CK-2) Rel Index Total Protein Albumin Urine WBC (Auto) Salicylates Acetaminophen Plasma/Serum Alcohol Crossmatch 11/24/19 11/25/19 11/25/19 05:22 04:34 05:05 WBC 17.3 H RBC 2.88 L Hgb 7.8 L Hct 24.6 L MCH 27 L RDW 18.5 H Plt Count Lymph % (Auto) 7.7 L Arthur % (Auto) 9.7 H Arthur # 1.7 H Seg Neutrophils % 82.2 H Seg Neuts % (Manual) Lymphocytes % (Manual) Seg Neutrophils # 14.2 H Seg Neutrophils # Man Lymphocytes # (Manual) Monocytes # (Manual) Basophils # (Manual) PT INR APTT ABG pH 7.475 H ABG pO2 ABG HCO3 29.4 H 32.3 H ABG O2 Saturation ABG Base Excess 5.4 H 6.9 H ABG Hemoglobin 9.0 L 10.6 L Oxyhemoglobin 94.3 L Sodium Potassium Chloride Carbon Dioxide BUN Creatinine Glucose POC Glucose Lactic Acid Calcium Ionized Calcium Phosphorus Magnesium Total Bilirubin AST ALT Alkaline Phosphatase Ammonia Total Creatine Kinase CK-MB (CK-2) CK-MB (CK-2) Rel Index Total Protein Albumin Urine WBC (Auto) Salicylates Acetaminophen Plasma/Serum Alcohol Crossmatch 11/25/19 11/25/19 11/26/19 05:05 22:46 03:31 WBC RBC Hgb Hct MCH RDW Plt Count Lymph % (Auto) Arthur % (Auto) Arthur # Seg Neutrophils % Seg Neuts % (Manual) Lymphocytes % (Manual) Seg Neutrophils # Seg Neutrophils # Man Lymphocytes # (Manual) Monocytes # (Manual) Basophils # (Manual) PT INR APTT ABG pH 7.459 H ABG pO2 ABG HCO3 34.2 H ABG O2 Saturation ABG Base Excess 9.4 H ABG Hemoglobin 7.6 L Oxyhemoglobin 94.8 L Sodium 152 H D 147 H Potassium 2.3 L* D 2.8 L* D Chloride 107.8 H Carbon Dioxide 31 H D 33 H BUN Creatinine 0.6 L 0.6 L Glucose 148 H 177 H POC Glucose Lactic Acid Calcium Ionized Calcium Phosphorus Magnesium Total Bilirubin AST 105 H ALT 71 H Alkaline Phosphatase 155 H Ammonia Total Creatine Kinase CK-MB (CK-2) CK-MB (CK-2) Rel Index Total Protein 5.2 L D Albumin 2.9 L Urine WBC (Auto) Salicylates Acetaminophen Plasma/Serum Alcohol Crossmatch 11/26/19 11/26/19 11/27/19 08:24 08:24 04:20 WBC 12.0 H RBC 3.00 L Hgb 8.0 L 9.3 L Hct 25.9 L 29.7 L MCH 27 L RDW 18.5 H Plt Count Lymph % (Auto) Arthur % (Auto) Arthur # Seg Neutrophils % Seg Neuts % (Manual) 89.0 H Lymphocytes % (Manual) 4.0 L Seg Neutrophils # Seg Neutrophils # Man 10.7 H Lymphocytes # (Manual) 0.5 L Monocytes # (Manual) Basophils # (Manual) PT INR APTT ABG pH ABG pO2 ABG HCO3 ABG O2 Saturation ABG Base Excess ABG Hemoglobin Oxyhemoglobin Sodium 146 H Potassium 3.4 L D Chloride Carbon Dioxide BUN Creatinine 0.5 L Glucose 165 H POC Glucose Lactic Acid Calcium Ionized Calcium Phosphorus Magnesium Total Bilirubin AST 57 H ALT Alkaline Phosphatase 166 H Ammonia Total Creatine Kinase CK-MB (CK-2) CK-MB (CK-2) Rel Index Total Protein Albumin 2.9 L Urine WBC (Auto) Salicylates Acetaminophen Plasma/Serum Alcohol Crossmatch 11/27/19 11/27/19 11/27/19 04:28 04:28 04:42 WBC RBC Hgb Hct MCH RDW Plt Count Lymph % (Auto) Arthur % (Auto) Arthur # Seg Neutrophils % Seg Neuts % (Manual) Lymphocytes % (Manual) Seg Neutrophils # Seg Neutrophils # Man Lymphocytes # (Manual) Monocytes # (Manual) Basophils # (Manual) PT INR APTT ABG pH 7.470 H ABG pO2 74.0 L ABG HCO3 33.8 H ABG O2 Saturation ABG Base Excess 9.1 H ABG Hemoglobin 8.7 L Oxyhemoglobin 94.7 L Sodium 146 H Potassium 2.9 L* Chloride Carbon Dioxide BUN 25 H Creatinine Glucose 213 H POC Glucose Lactic Acid Calcium Ionized Calcium Phosphorus 1.00 L Magnesium Total Bilirubin AST ALT Alkaline Phosphatase Ammonia Total Creatine Kinase CK-MB (CK-2) CK-MB (CK-2) Rel Index Total Protein Albumin Urine WBC (Auto) Salicylates Acetaminophen Plasma/Serum Alcohol Crossmatch 11/27/19 11/27/19 11/27/19 05:37 12:20 15:46 WBC RBC Hgb Hct MCH RDW Plt Count Lymph % (Auto) Arthur % (Auto) Arthur # Seg Neutrophils % Seg Neuts % (Manual) Lymphocytes % (Manual) Seg Neutrophils # Seg Neutrophils # Man Lymphocytes # (Manual) Monocytes # (Manual) Basophils # (Manual) PT INR APTT ABG pH ABG pO2 ABG HCO3 ABG O2 Saturation ABG Base Excess ABG Hemoglobin Oxyhemoglobin Sodium 146 H Potassium 3.5 L D Chloride Carbon Dioxide BUN 24 H Creatinine 0.6 L Glucose 187 H POC Glucose 117 H 220 H Lactic Acid Calcium Ionized Calcium Phosphorus Magnesium Total Bilirubin AST ALT Alkaline Phosphatase Ammonia Total Creatine Kinase CK-MB (CK-2) CK-MB (CK-2) Rel Index Total Protein Albumin Urine WBC (Auto) Salicylates Acetaminophen Plasma/Serum Alcohol Crossmatch 11/27/19 11/28/19 11/28/19 17:28 05:00 05:02 WBC RBC Hgb Hct MCH RDW Plt Count Lymph % (Auto) Arthur % (Auto) Arthur # Seg Neutrophils % Seg Neuts % (Manual) Lymphocytes % (Manual) Seg Neutrophils # Seg Neutrophils # Man Lymphocytes # (Manual) Monocytes # (Manual) Basophils # (Manual) PT INR APTT ABG pH ABG pO2 72.4 L ABG HCO3 33.6 H ABG O2 Saturation 94.1 L ABG Base Excess 7.3 H ABG Hemoglobin Oxyhemoglobin 91.8 L Sodium 146 H Potassium 3.3 L Chloride Carbon Dioxide BUN 25 H Creatinine 0.6 L Glucose 176 H POC Glucose 198 H Lactic Acid Calcium Ionized Calcium Phosphorus Magnesium Total Bilirubin AST ALT Alkaline Phosphatase Ammonia Total Creatine Kinase CK-MB (CK-2) CK-MB (CK-2) Rel Index Total Protein Albumin Urine WBC (Auto) Salicylates Acetaminophen Plasma/Serum Alcohol Crossmatch 11/28/19 11/28/19 11/29/19 05:02 18:55 10:43 WBC 15.2 H 19.0 H RBC 3.06 L 3.01 L Hgb 8.3 L 8.3 L Hct 27.0 L 26.4 L MCH 27 L RDW 19.0 H 19.7 H Plt Count 479 H 611 H Lymph % (Auto) Arthur % (Auto) Arthur # Seg Neutrophils % Seg Neuts % (Manual) 92.0 H Lymphocytes % (Manual) 2.0 L Seg Neutrophils # Seg Neutrophils # Man 14.0 H Lymphocytes # (Manual) 0.3 L Monocytes # (Manual) Basophils # (Manual) PT INR APTT ABG pH ABG pO2 ABG HCO3 ABG O2 Saturation ABG Base Excess ABG Hemoglobin Oxyhemoglobin Sodium Potassium Chloride Carbon Dioxide BUN Creatinine Glucose POC Glucose 138 H Lactic Acid Calcium Ionized Calcium Phosphorus Magnesium Total Bilirubin AST ALT Alkaline Phosphatase Ammonia Total Creatine Kinase CK-MB (CK-2) CK-MB (CK-2) Rel Index Total Protein Albumin Urine WBC (Auto) Salicylates Acetaminophen Plasma/Serum Alcohol Crossmatch 11/29/19 11/29/19 11/29/19 10:43 12:27 19:25 WBC RBC Hgb Hct MCH RDW Plt Count Lymph % (Auto) Arthur % (Auto) Arthur # Seg Neutrophils % Seg Neuts % (Manual) Lymphocytes % (Manual) Seg Neutrophils # Seg Neutrophils # Man Lymphocytes # (Manual) Monocytes # (Manual) Basophils # (Manual) PT INR APTT ABG pH ABG pO2 ABG HCO3 ABG O2 Saturation ABG Base Excess ABG Hemoglobin Oxyhemoglobin Sodium Potassium 2.8 L* Chloride Carbon Dioxide BUN 20 H Creatinine 0.5 L Glucose 121 H POC Glucose 128 H 120 H Lactic Acid Calcium Ionized Calcium Phosphorus Magnesium Total Bilirubin AST ALT Alkaline Phosphatase Ammonia Total Creatine Kinase CK-MB (CK-2) CK-MB (CK-2) Rel Index Total Protein Albumin Urine WBC (Auto) Salicylates Acetaminophen Plasma/Serum Alcohol Crossmatch 11/29/19 11/30/19 11/30/19 23:46 04:10 05:02 WBC RBC Hgb Hct MCH RDW Plt Count Lymph % (Auto) Arthur % (Auto) Arthur # Seg Neutrophils % Seg Neuts % (Manual) Lymphocytes % (Manual) Seg Neutrophils # Seg Neutrophils # Man Lymphocytes # (Manual) Monocytes # (Manual) Basophils # (Manual) PT INR APTT ABG pH ABG pO2 76.3 L ABG HCO3 32.5 H ABG O2 Saturation ABG Base Excess 6.9 H ABG Hemoglobin 8.0 L Oxyhemoglobin 92.6 L Sodium Potassium Chloride Carbon Dioxide BUN Creatinine Glucose POC Glucose 116 H 128 H Lactic Acid Calcium Ionized Calcium Phosphorus Magnesium Total Bilirubin AST ALT Alkaline Phosphatase Ammonia Total Creatine Kinase CK-MB (CK-2) CK-MB (CK-2) Rel Index Total Protein Albumin Urine WBC (Auto) Salicylates Acetaminophen Plasma/Serum Alcohol Crossmatch 11/30/19 11/30/19 11/30/19 05:25 05:25 12:59 WBC 18.4 H RBC 3.10 L Hgb 8.5 L Hct 27.5 L MCH 27 L RDW 20.9 H Plt Count 691 H Lymph % (Auto) 7.1 L Arthur % (Auto) 7.7 H Arthur # 1.4 H Seg Neutrophils % 83.4 H Seg Neuts % (Manual) Lymphocytes % (Manual) Seg Neutrophils # 15.4 H Seg Neutrophils # Man Lymphocytes # (Manual) Monocytes # (Manual) Basophils # (Manual) PT INR APTT ABG pH ABG pO2 ABG HCO3 ABG O2 Saturation ABG Base Excess ABG Hemoglobin Oxyhemoglobin Sodium 146 H Potassium Chloride 107.2 H Carbon Dioxide BUN Creatinine 0.5 L Glucose 132 H POC Glucose 124 H Lactic Acid Calcium Ionized Calcium Phosphorus Magnesium Total Bilirubin AST 246 H ALT 274 H Alkaline Phosphatase 203 H Ammonia Total Creatine Kinase CK-MB (CK-2) CK-MB (CK-2) Rel Index Total Protein 5.4 L Albumin 2.9 L Urine WBC (Auto) Salicylates Acetaminophen Plasma/Serum Alcohol Crossmatch 11/30/19 12/01/19 12/01/19 17:53 00:05 05:10 WBC RBC Hgb Hct MCH RDW Plt Count Lymph % (Auto) Arthur % (Auto) Arthur # Seg Neutrophils % Seg Neuts % (Manual) Lymphocytes % (Manual) Seg Neutrophils # Seg Neutrophils # Man Lymphocytes # (Manual) Monocytes # (Manual) Basophils # (Manual) PT INR APTT ABG pH ABG pO2 ABG HCO3 ABG O2 Saturation ABG Base Excess ABG Hemoglobin Oxyhemoglobin Sodium Potassium Chloride Carbon Dioxide BUN Creatinine Glucose POC Glucose 113 H 143 H 145 H Lactic Acid Calcium Ionized Calcium Phosphorus Magnesium Total Bilirubin AST ALT Alkaline Phosphatase Ammonia Total Creatine Kinase CK-MB (CK-2) CK-MB (CK-2) Rel Index Total Protein Albumin Urine WBC (Auto) Salicylates Acetaminophen Plasma/Serum Alcohol Crossmatch 12/01/19 12/01/19 12/01/19 05:33 08:23 08:23 WBC 22.7 H RBC 2.88 L Hgb 7.9 L Hct 25.2 L MCH 27 L RDW 21.0 H Plt Count 732 H Lymph % (Auto) Arthur % (Auto) Arthur # Seg Neutrophils % Seg Neuts % (Manual) 91.0 H Lymphocytes % (Manual) 3.0 L Seg Neutrophils # Seg Neutrophils # Man 20.7 H Lymphocytes # (Manual) 0.7 L Monocytes # (Manual) 1.1 H Basophils # (Manual) PT INR APTT ABG pH ABG pO2 68.6 L ABG HCO3 34.1 H ABG O2 Saturation ABG Base Excess 9.0 H ABG Hemoglobin 6.5 L Oxyhemoglobin 94.7 L Sodium Potassium Chloride Carbon Dioxide BUN Creatinine 0.5 L Glucose 125 H POC Glucose Lactic Acid Calcium Ionized Calcium Phosphorus Magnesium Total Bilirubin AST ALT Alkaline Phosphatase Ammonia Total Creatine Kinase CK-MB (CK-2) CK-MB (CK-2) Rel Index Total Protein Albumin Urine WBC (Auto) Salicylates Acetaminophen Plasma/Serum Alcohol Crossmatch 12/01/19 12/01/19 12/01/19 13:21 17:54 20:59 WBC RBC Hgb Hct MCH RDW Plt Count Lymph % (Auto) Arthur % (Auto) Arthur # Seg Neutrophils % Seg Neuts % (Manual) Lymphocytes % (Manual) Seg Neutrophils # Seg Neutrophils # Man Lymphocytes # (Manual) Monocytes # (Manual) Basophils # (Manual) PT INR APTT ABG pH ABG pO2 78.3 L ABG HCO3 33.8 H ABG O2 Saturation 94.9 L ABG Base Excess 7.9 H ABG Hemoglobin 11.5 L Oxyhemoglobin 92.3 L Sodium Potassium Chloride Carbon Dioxide BUN Creatinine Glucose POC Glucose 111 H 115 H Lactic Acid Calcium Ionized Calcium Phosphorus Magnesium Total Bilirubin AST ALT Alkaline Phosphatase Ammonia Total Creatine Kinase CK-MB (CK-2) CK-MB (CK-2) Rel Index Total Protein Albumin Urine WBC (Auto) Salicylates Acetaminophen Plasma/Serum Alcohol Crossmatch 12/02/19 12/03/19 12/04/19 12:55 20:00 04:26 WBC 15.2 H RBC 2.69 L Hgb 7.4 L Hct 23.6 L MCH 27 L RDW 19.9 H Plt Count 838 H Lymph % (Auto) Arthur % (Auto) Arthur # Seg Neutrophils % Seg Neuts % (Manual) Lymphocytes % (Manual) Seg Neutrophils # Seg Neutrophils # Man Lymphocytes # (Manual) Monocytes # (Manual) Basophils # (Manual) PT INR APTT ABG pH ABG pO2 68.3 L ABG HCO3 33.5 H ABG O2 Saturation 93.5 L ABG Base Excess 8.4 H ABG Hemoglobin 7.3 L Oxyhemoglobin 90.9 L Sodium Potassium Chloride Carbon Dioxide BUN Creatinine Glucose POC Glucose 107 H Lactic Acid Calcium Ionized Calcium Phosphorus Magnesium Total Bilirubin AST ALT Alkaline Phosphatase Ammonia Total Creatine Kinase CK-MB (CK-2) CK-MB (CK-2) Rel Index Total Protein Albumin Urine WBC (Auto) Salicylates Acetaminophen Plasma/Serum Alcohol Crossmatch 12/04/19 12/04/19 12/04/19 04:26 07:45 12:02 WBC 15.9 H RBC 2.88 L Hgb 7.9 L Hct 25.1 L MCH RDW 20.4 H Plt Count 839 H Lymph % (Auto) 11.3 L Arthur % (Auto) 15.2 H Arthur # 2.4 H Seg Neutrophils % 72.4 H Seg Neuts % (Manual) Lymphocytes % (Manual) Seg Neutrophils # 11.5 H Seg Neutrophils # Man Lymphocytes # (Manual) Monocytes # (Manual) Basophils # (Manual) PT INR APTT ABG pH ABG pO2 ABG HCO3 ABG O2 Saturation ABG Base Excess ABG Hemoglobin Oxyhemoglobin Sodium Potassium Chloride 96.5 L Carbon Dioxide BUN 21 H Creatinine 0.6 L Glucose 107 H POC Glucose 138 H Lactic Acid Calcium Ionized Calcium Phosphorus Magnesium Total Bilirubin AST ALT Alkaline Phosphatase Ammonia Total Creatine Kinase CK-MB (CK-2) CK-MB (CK-2) Rel Index Total Protein Albumin Urine WBC (Auto) Salicylates Acetaminophen Plasma/Serum Alcohol Crossmatch 12/04/19 12/05/19 12/05/19 18:16 11:55 18:36 WBC RBC Hgb Hct MCH RDW Plt Count Lymph % (Auto) Arthur % (Auto) Arthur # Seg Neutrophils % Seg Neuts % (Manual) Lymphocytes % (Manual) Seg Neutrophils # Seg Neutrophils # Man Lymphocytes # (Manual) Monocytes # (Manual) Basophils # (Manual) PT INR APTT ABG pH ABG pO2 ABG HCO3 ABG O2 Saturation ABG Base Excess ABG Hemoglobin Oxyhemoglobin Sodium Potassium Chloride Carbon Dioxide BUN Creatinine Glucose POC Glucose 135 H 125 H 135 H Lactic Acid Calcium Ionized Calcium Phosphorus Magnesium Total Bilirubin AST ALT Alkaline Phosphatase Ammonia Total Creatine Kinase CK-MB (CK-2) CK-MB (CK-2) Rel Index Total Protein Albumin Urine WBC (Auto) Salicylates Acetaminophen Plasma/Serum Alcohol Crossmatch 12/05/19 12/06/19 12/06/19 23:30 04:14 05:43 WBC RBC Hgb Hct MCH RDW Plt Count Lymph % (Auto) Arthur % (Auto) Arthur # Seg Neutrophils % Seg Neuts % (Manual) Lymphocytes % (Manual) Seg Neutrophils # Seg Neutrophils # Man Lymphocytes # (Manual) Monocytes # (Manual) Basophils # (Manual) PT INR APTT ABG pH ABG pO2 ABG HCO3 ABG O2 Saturation ABG Base Excess ABG Hemoglobin Oxyhemoglobin Sodium Potassium 5.6 H Chloride 95.0 L Carbon Dioxide BUN 48 H Creatinine 1.3 H D Glucose POC Glucose 126 H 121 H Lactic Acid Calcium Ionized Calcium Phosphorus Magnesium Total Bilirubin AST 89 H ALT 98 H Alkaline Phosphatase 476 H Ammonia Total Creatine Kinase CK-MB (CK-2) CK-MB (CK-2) Rel Index Total Protein Albumin 2.8 L Urine WBC (Auto) Salicylates Acetaminophen Plasma/Serum Alcohol Crossmatch 12/06/19 12/06/19 12/07/19 10:39 14:34 00:19 WBC 17.3 H RBC 2.60 L Hgb 7.1 L Hct 22.7 L MCH 27 L RDW 20.1 H Plt Count 832 H Lymph % (Auto) Arthur % (Auto) Arthur # Seg Neutrophils % Seg Neuts % (Manual) Lymphocytes % (Manual) Seg Neutrophils # Seg Neutrophils # Man Lymphocytes # (Manual) Monocytes # (Manual) Basophils # (Manual) PT INR APTT ABG pH ABG pO2 ABG HCO3 ABG O2 Saturation ABG Base Excess ABG Hemoglobin Oxyhemoglobin Sodium Potassium Chloride Carbon Dioxide BUN Creatinine Glucose POC Glucose 128 H 136 H Lactic Acid Calcium Ionized Calcium Phosphorus Magnesium Total Bilirubin AST ALT Alkaline Phosphatase Ammonia Total Creatine Kinase CK-MB (CK-2) CK-MB (CK-2) Rel Index Total Protein Albumin Urine WBC (Auto) Salicylates Acetaminophen Plasma/Serum Alcohol Crossmatch 12/07/19 12/07/19 12/07/19 03:44 03:44 05:53 WBC 16.2 H RBC 2.56 L Hgb 7.1 L Hct 22.3 L MCH RDW 19.4 H Plt Count 782 H Lymph % (Auto) Arthur % (Auto) Arthur # Seg Neutrophils % Seg Neuts % (Manual) Lymphocytes % (Manual) Seg Neutrophils # Seg Neutrophils # Man Lymphocytes # (Manual) Monocytes # (Manual) Basophils # (Manual) PT INR APTT ABG pH ABG pO2 ABG HCO3 ABG O2 Saturation ABG Base Excess ABG Hemoglobin Oxyhemoglobin Sodium Potassium Chloride 95.6 L Carbon Dioxide BUN 56 H Creatinine 1.4 H Glucose 120 H POC Glucose 128 H Lactic Acid Calcium 10.3 H Ionized Calcium Phosphorus Magnesium Total Bilirubin AST ALT Alkaline Phosphatase Ammonia Total Creatine Kinase CK-MB (CK-2) CK-MB (CK-2) Rel Index Total Protein Albumin Urine WBC (Auto) Salicylates Acetaminophen Plasma/Serum Alcohol Crossmatch 12/07/19 12/07/19 12/08/19 12:54 23:47 00:20 WBC RBC Hgb Hct MCH RDW Plt Count Lymph % (Auto) Arthur % (Auto) Arthur # Seg Neutrophils % Seg Neuts % (Manual) Lymphocytes % (Manual) Seg Neutrophils # Seg Neutrophils # Man Lymphocytes # (Manual) Monocytes # (Manual) Basophils # (Manual) PT INR APTT ABG pH ABG pO2 ABG HCO3 ABG O2 Saturation ABG Base Excess ABG Hemoglobin Oxyhemoglobin Sodium Potassium Chloride Carbon Dioxide BUN Creatinine Glucose POC Glucose 128 H 130 H 124 H Lactic Acid Calcium Ionized Calcium Phosphorus Magnesium Total Bilirubin AST ALT Alkaline Phosphatase Ammonia Total Creatine Kinase CK-MB (CK-2) CK-MB (CK-2) Rel Index Total Protein Albumin Urine WBC (Auto) Salicylates Acetaminophen Plasma/Serum Alcohol Crossmatch 12/08/19 12/08/19 12/08/19 06:38 12:04 18:26 WBC RBC Hgb Hct MCH RDW Plt Count Lymph % (Auto) Arthur % (Auto) Arthur # Seg Neutrophils % Seg Neuts % (Manual) Lymphocytes % (Manual) Seg Neutrophils # Seg Neutrophils # Man Lymphocytes # (Manual) Monocytes # (Manual) Basophils # (Manual) PT INR APTT ABG pH ABG pO2 ABG HCO3 ABG O2 Saturation ABG Base Excess ABG Hemoglobin Oxyhemoglobin Sodium Potassium Chloride Carbon Dioxide BUN Creatinine Glucose POC Glucose 137 H 129 H 150 H Lactic Acid Calcium Ionized Calcium Phosphorus Magnesium Total Bilirubin AST ALT Alkaline Phosphatase Ammonia Total Creatine Kinase CK-MB (CK-2) CK-MB (CK-2) Rel Index Total Protein Albumin Urine WBC (Auto) Salicylates Acetaminophen Plasma/Serum Alcohol Crossmatch 12/09/19 12/09/19 12/09/19 00:56 05:34 06:13 WBC RBC Hgb Hct MCH RDW Plt Count Lymph % (Auto) Arthur % (Auto) Arthur # Seg Neutrophils % Seg Neuts % (Manual) Lymphocytes % (Manual) Seg Neutrophils # Seg Neutrophils # Man Lymphocytes # (Manual) Monocytes # (Manual) Basophils # (Manual) PT INR APTT ABG pH ABG pO2 ABG HCO3 ABG O2 Saturation ABG Base Excess ABG Hemoglobin Oxyhemoglobin Sodium 146 H Potassium Chloride Carbon Dioxide BUN 66 H Creatinine 1.9 H Glucose 116 H POC Glucose 130 H 130 H Lactic Acid Calcium Ionized Calcium Phosphorus Magnesium Total Bilirubin AST ALT Alkaline Phosphatase Ammonia Total Creatine Kinase CK-MB (CK-2) CK-MB (CK-2) Rel Index Total Protein Albumin Urine WBC (Auto) Salicylates Acetaminophen Plasma/Serum Alcohol Crossmatch 12/09/19 12/09/19 12/10/19 11:52 17:50 00:14 WBC RBC Hgb Hct MCH RDW Plt Count Lymph % (Auto) Arthur % (Auto) Arthur # Seg Neutrophils % Seg Neuts % (Manual) Lymphocytes % (Manual) Seg Neutrophils # Seg Neutrophils # Man Lymphocytes # (Manual) Monocytes # (Manual) Basophils # (Manual) PT INR APTT ABG pH ABG pO2 ABG HCO3 ABG O2 Saturation ABG Base Excess ABG Hemoglobin Oxyhemoglobin Sodium Potassium Chloride Carbon Dioxide BUN Creatinine Glucose POC Glucose 135 H 120 H 116 H Lactic Acid Calcium Ionized Calcium Phosphorus Magnesium Total Bilirubin AST ALT Alkaline Phosphatase Ammonia Total Creatine Kinase CK-MB (CK-2) CK-MB (CK-2) Rel Index Total Protein Albumin Urine WBC (Auto) Salicylates Acetaminophen Plasma/Serum Alcohol Crossmatch 12/10/19 12/10/19 12/10/19 05:38 11:38 17:34 WBC RBC Hgb Hct MCH RDW Plt Count Lymph % (Auto) Arthur % (Auto) Arthur # Seg Neutrophils % Seg Neuts % (Manual) Lymphocytes % (Manual) Seg Neutrophils # Seg Neutrophils # Man Lymphocytes # (Manual) Monocytes # (Manual) Basophils # (Manual) PT INR APTT ABG pH ABG pO2 ABG HCO3 ABG O2 Saturation ABG Base Excess ABG Hemoglobin Oxyhemoglobin Sodium Potassium Chloride Carbon Dioxide BUN Creatinine Glucose POC Glucose 115 H 112 H 130 H Lactic Acid Calcium Ionized Calcium Phosphorus Magnesium Total Bilirubin AST ALT Alkaline Phosphatase Ammonia Total Creatine Kinase CK-MB (CK-2) CK-MB (CK-2) Rel Index Total Protein Albumin Urine WBC (Auto) Salicylates Acetaminophen Plasma/Serum Alcohol Crossmatch 12/11/19 12/11/19 12/11/19 00:20 05:31 12:22 WBC RBC Hgb Hct MCH RDW Plt Count Lymph % (Auto) Arthur % (Auto) Arthur # Seg Neutrophils % Seg Neuts % (Manual) Lymphocytes % (Manual) Seg Neutrophils # Seg Neutrophils # Man Lymphocytes # (Manual) Monocytes # (Manual) Basophils # (Manual) PT INR APTT ABG pH ABG pO2 ABG HCO3 ABG O2 Saturation ABG Base Excess ABG Hemoglobin Oxyhemoglobin Sodium Potassium Chloride Carbon Dioxide BUN Creatinine Glucose POC Glucose 124 H 132 H 128 H Lactic Acid Calcium Ionized Calcium Phosphorus Magnesium Total Bilirubin AST ALT Alkaline Phosphatase Ammonia Total Creatine Kinase CK-MB (CK-2) CK-MB (CK-2) Rel Index Total Protein Albumin Urine WBC (Auto) Salicylates Acetaminophen Plasma/Serum Alcohol Crossmatch 12/11/19 12/11/19 12/12/19 18:04 23:42 03:51 WBC RBC Hgb Hct MCH RDW Plt Count Lymph % (Auto) Arthur % (Auto) Arthur # Seg Neutrophils % Seg Neuts % (Manual) Lymphocytes % (Manual) Seg Neutrophils # Seg Neutrophils # Man Lymphocytes # (Manual) Monocytes # (Manual) Basophils # (Manual) PT INR APTT ABG pH ABG pO2 ABG HCO3 ABG O2 Saturation ABG Base Excess ABG Hemoglobin Oxyhemoglobin Sodium 149 H Potassium Chloride Carbon Dioxide 20 L D BUN 77 H Creatinine 2.8 H Glucose POC Glucose 133 H 154 H Lactic Acid Calcium Ionized Calcium Phosphorus Magnesium Total Bilirubin AST ALT Alkaline Phosphatase Ammonia Total Creatine Kinase CK-MB (CK-2) CK-MB (CK-2) Rel Index Total Protein Albumin Urine WBC (Auto) Salicylates Acetaminophen Plasma/Serum Alcohol Crossmatch 12/12/19 12/12/19 12/12/19 05:18 05:26 10:30 WBC 18.0 H RBC 2.51 L Hgb 6.8 L Hct 22.0 L MCH 27 L RDW 19.9 H Plt Count 582 H Lymph % (Auto) Arthur % (Auto) Arthur # Seg Neutrophils % Seg Neuts % (Manual) Lymphocytes % (Manual) Seg Neutrophils # Seg Neutrophils # Man Lymphocytes # (Manual) Monocytes # (Manual) Basophils # (Manual) PT INR APTT ABG pH ABG pO2 ABG HCO3 ABG O2 Saturation ABG Base Excess ABG Hemoglobin Oxyhemoglobin Sodium Potassium Chloride Carbon Dioxide BUN Creatinine Glucose POC Glucose 135 H Lactic Acid Calcium Ionized Calcium Phosphorus Magnesium Total Bilirubin AST ALT Alkaline Phosphatase Ammonia Total Creatine Kinase CK-MB (CK-2) CK-MB (CK-2) Rel Index Total Protein Albumin Urine WBC (Auto) Salicylates Acetaminophen Plasma/Serum Alcohol Crossmatch See Detail 12/12/19 12/12/19 12/12/19 11:44 18:10 23:21 WBC RBC Hgb Hct MCH RDW Plt Count Lymph % (Auto) Arthur % (Auto) Arthur # Seg Neutrophils % Seg Neuts % (Manual) Lymphocytes % (Manual) Seg Neutrophils # Seg Neutrophils # Man Lymphocytes # (Manual) Monocytes # (Manual) Basophils # (Manual) PT INR APTT ABG pH ABG pO2 ABG HCO3 ABG O2 Saturation ABG Base Excess ABG Hemoglobin Oxyhemoglobin Sodium Potassium Chloride Carbon Dioxide BUN Creatinine Glucose POC Glucose 108 H 107 H 126 H Lactic Acid Calcium Ionized Calcium Phosphorus Magnesium Total Bilirubin AST ALT Alkaline Phosphatase Ammonia Total Creatine Kinase CK-MB (CK-2) CK-MB (CK-2) Rel Index Total Protein Albumin Urine WBC (Auto) Salicylates Acetaminophen Plasma/Serum Alcohol Crossmatch 12/13/19 12/13/19 12/13/19 05:41 07:48 07:48 WBC 38.3 H RBC 2.37 L Hgb 6.3 L Hct 20.9 L MCH 27 L RDW 20.2 H Plt Count 546 H Lymph % (Auto) Arthur % (Auto) Arthur # Seg Neutrophils % Seg Neuts % (Manual) 93.0 H Lymphocytes % (Manual) 1.0 L Seg Neutrophils # Seg Neutrophils # Man 35.6 H Lymphocytes # (Manual) 0.4 L Monocytes # (Manual) Basophils # (Manual) 0.4 H PT INR APTT ABG pH ABG pO2 ABG HCO3 ABG O2 Saturation ABG Base Excess ABG Hemoglobin Oxyhemoglobin Sodium 152 H Potassium 3.1 L D Chloride 111.9 H Carbon Dioxide 21 L BUN 53 H Creatinine 1.9 H Glucose 141 H POC Glucose 128 H Lactic Acid Calcium Ionized Calcium Phosphorus Magnesium Total Bilirubin AST ALT Alkaline Phosphatase 316 H Ammonia Total Creatine Kinase CK-MB (CK-2) CK-MB (CK-2) Rel Index Total Protein Albumin 2.4 L Urine WBC (Auto) Salicylates Acetaminophen Plasma/Serum Alcohol Crossmatch 12/13/19 12/13/19 12/14/19 18:17 23:19 05:36 WBC RBC Hgb Hct MCH RDW Plt Count Lymph % (Auto) Arthur % (Auto) Arthur # Seg Neutrophils % Seg Neuts % (Manual) Lymphocytes % (Manual) Seg Neutrophils # Seg Neutrophils # Man Lymphocytes # (Manual) Monocytes # (Manual) Basophils # (Manual) PT INR APTT ABG pH ABG pO2 ABG HCO3 ABG O2 Saturation ABG Base Excess ABG Hemoglobin Oxyhemoglobin Sodium Potassium Chloride Carbon Dioxide BUN Creatinine Glucose POC Glucose 141 H 158 H 182 H Lactic Acid Calcium Ionized Calcium Phosphorus Magnesium Total Bilirubin AST ALT Alkaline Phosphatase Ammonia Total Creatine Kinase CK-MB (CK-2) CK-MB (CK-2) Rel Index Total Protein Albumin Urine WBC (Auto) Salicylates Acetaminophen Plasma/Serum Alcohol Crossmatch 12/14/19 12/14/19 12/14/19 08:48 08:48 10:31 WBC 33.3 H RBC 2.70 L Hgb 7.9 L 8.0 L Hct 25.3 L 24.0 L MCH RDW 19.2 H Plt Count 476 H Lymph % (Auto) Arthur % (Auto) Arthur # Seg Neutrophils % Seg Neuts % (Manual) Lymphocytes % (Manual) Seg Neutrophils # Seg Neutrophils # Man Lymphocytes # (Manual) Monocytes # (Manual) Basophils # (Manual) PT INR APTT ABG pH ABG pO2 ABG HCO3 ABG O2 Saturation ABG Base Excess ABG Hemoglobin Oxyhemoglobin Sodium 153 H Potassium 2.5 L* Chloride 114.9 H Carbon Dioxide 20 L BUN 38 H Creatinine 1.4 H Glucose 177 H POC Glucose Lactic Acid Calcium Ionized Calcium Phosphorus Magnesium Total Bilirubin AST ALT Alkaline Phosphatase Ammonia Total Creatine Kinase CK-MB (CK-2) CK-MB (CK-2) Rel Index Total Protein Albumin Urine WBC (Auto) Salicylates Acetaminophen Plasma/Serum Alcohol Crossmatch Allied health notes reviewed: nursing
[2019-12-14 16:37] LABS: ABG Base Excess -0.2 mmol/L (-2.0-3.0); ABG HCO3 23.7 mmol/L (20.0-26.0); ABG Methemoglobin 0.6 % (0.0-1.5); ABG Oxygen Saturation 96.3 % (95.0-99.0); ABG PCO2 35.4 mm Hg; ABG PH 7.444 pH Units (7.350-7.450); ABG PO2 73.6 mm Hg (80.0-90.0)
--- NOTE | 2019-12-14 17:36 | Progress Note ---
Assessment and Plan Cultures: 11/22/2019 urine culture:no significant growth 11/22/2019 tracheal aspirate culture: H. influenzae 11/23/2019 blood culture: No growth A/P: 54-year-old female with hypertension, depression, tobacco use, alcohol abuse was brought into the emergency room on 11/22/2019 after she went into respiratory arrest at home requiring CPR by EMS: #Sepsis: Source could be UTI versus pneumonitis versus SBP. UA showed pyuria. RUQ US showed no ascites. Completed 7 days of Ceftriaxone on 11/29/2019. #Pneumonitis, acute respiratory failure: Possibly aspiration. No pneumonia seen. On mechanical ventilation. #Elevated LFTs, alcohol abuse, status post arrest requiring CPR: Trend LFTs. RUQ US showed no ascites. #Acute encephalopathy: Likely multifactorial from alcohol abuse, status post arrest, electrolyte abnormalities. #Diarrhea: likely combination of tube feeds and lactulose. Recs: Started empiric vancomycin and renally dosed cefepime. Ordered UA. Follow up blood cultures. Bacteremia vs UTI vs central fevers (WBC may be secondary to procedure) Freddy Plata MD [facility] M: [phone] O: [phone] F: [phone] Subjective Date of service: 12/14/19 Principal diagnosis: Ac cardiopulmonary arrest; Ac hypoxemic resp failure; Acute encephalopathy Interval history: Now white fevers and worsened white count after having trach and PEG placed. No clear source. Objective - Exam Narrative Exam: Constitutional: comatose Head, Ears, Nose: Normocephalic, atraumatic. Eyes: Conjunctivae/corneas clear. Neck:Trach Cardiovascular: S1, S2 normal Respiratory: Good air entry, clear to auscultation bilaterally GI: slightly distended, bowel sounds present. Rectal tube present with liquid stool Musculoskeletal: No pedal edema, no cyanosis. Skin: No rash or abscess Hem/Lymphatic: No palpable cervical or supraclavicular nodes. No lymphangitis Psych: no agitation. Neurological: comatose - Constitutional Vitals: Vital Signs Temp Pulse Resp BP Pulse Ox 100.7 F H 124 H 38 H 141/87 96 12/14/19 10:00 12/14/19 16:15 12/14/19 16:15 12/14/19 16:15 12/14/19 16:15 Temperature -Last 24 Hours Temperature 100.7 F Temperature 99.1 F Temperature 101.3 F Temperature 99.9 F Temperature 101.7 F - Labs CBC & Chem 7: 12/14/19 08:48 12/14/19 10:31 Labs: Abnormal lab results 12/13/19 12/13/19 12/14/19 Range/Units 18:17 23:19 05:36 WBC (4.5-11.0) K/mm3 RBC (3.65-5.03) M/mm3 Hgb (10.1-14.3) gm/dl Hct (30.3-42.9) % RDW (13.2-15.2) % Plt Count (140-440) K/mm3 ABG pO2 (80.0-90.0) mm Hg ABG Hemoglobin (12.0-16.0) gm/dl Oxyhemoglobin (95.0-99.0) % Sodium (137-145) mmol/L Potassium (3.6-5.0) mmol/L Chloride (98-107) mmol/L Carbon Dioxide (22-30) mmol/L BUN (7-17) mg/dL Creatinine (0.7-1.2) mg/dL Glucose (65-100) mg/dL POC Glucose 141 H 158 H 182 H (70-105) 12/14/19 12/14/19 12/14/19 Range/Units 08:48 08:48 10:31 WBC 33.3 H (4.5-11.0) K/mm3 RBC 2.70 L (3.65-5.03) M/mm3 Hgb 7.9 L 8.0 L (10.1-14.3) gm/dl Hct 25.3 L 24.0 L (30.3-42.9) % RDW 19.2 H (13.2-15.2) % Plt Count 476 H (140-440) K/mm3 ABG pO2 (80.0-90.0) mm Hg ABG Hemoglobin (12.0-16.0) gm/dl Oxyhemoglobin (95.0-99.0) % Sodium 153 H (137-145) mmol/L Potassium 2.5 L* (3.6-5.0) mmol/L Chloride 114.9 H (98-107) mmol/L Carbon Dioxide 20 L (22-30) mmol/L BUN 38 H (7-17) mg/dL Creatinine 1.4 H (0.7-1.2) mg/dL Glucose 177 H (65-100) mg/dL POC Glucose (70-105) 12/14/19 12/14/19 Range/Units 12:57 16:15 WBC (4.5-11.0) K/mm3 RBC (3.65-5.03) M/mm3 Hgb (10.1-14.3) gm/dl Hct (30.3-42.9) % RDW (13.2-15.2) % Plt Count (140-440) K/mm3 ABG pO2 73.6 L (80.0-90.0) mm Hg ABG Hemoglobin 7.6 L (12.0-16.0) gm/dl Oxyhemoglobin 94.0 L (95.0-99.0) % Sodium (137-145) mmol/L Potassium (3.6-5.0) mmol/L Chloride (98-107) mmol/L Carbon Dioxide (22-30) mmol/L BUN (7-17) mg/dL Creatinine (0.7-1.2) mg/dL Glucose (65-100) mg/dL POC Glucose 174 H (70-105)
[2019-12-14] MEDS ORDERED: VANCOMYCIN PHARMACY TO DOSE IV SCH (18:00)
[2019-12-14] MEDS: QUEtiapine 100 MG TAB PO SCH (22:17)
[2019-12-14] MEDS: VANCOMYCIN 750 MG in SODIUM CHLORIDE 0.9% 250ML 250 ML IV SCH (22:18)
[2019-12-14] MEDS: MORPHINE 2 MG/1 ML INJ IV PRN (22:18)
[2019-12-14] MEDS: CEFEPIME/NS 2 GM/100 ML 2 GM/100 ML BAG IV SCH (22:19)
[2019-12-15] MEDS: chlordiazePOXIDE 25 MG CAP PO SCH ×3 (06:55→21:28)
--- NOTE | 2019-12-15 07:19 | Progress Note ---
Assessment and Plan Assessment and plan: Patient is a 54-year-old woman with a history of Hypertension, Depression, tobacco and alcohol dependency who presented to [facility] ED on 11/22/2019 due to cardiac arrest outside of the hospital. EMS found pt in PEA. Upon their arrival patient in sinus tachycardia. EMS were unable to intubate patient with a ET tube because she was clenching down therefore Joe airway placed per records. Patient received Narcan and Epinephrine. Patient's rhythm changed to PEA to sinus bradycardia, to PEA, then to sinus tach after receiving Narcan and Epinephrine. Per the ED physician who evaluated pt, Patient presented with a pulse, intermittent respirations, and bagging support via Joe airway with O2 sat of 100%. Accu-Chek of 71 obtained by EMS Status post cardiac arrest, etiology unknown Acute respiratory failure with hypoxia s/p Intubation via ETT >96 hours: Trach and PEG planned, CCM following Seizure disorder: treat with Keppra Presumed anoxic brain injury: Neurology is following Alcohol abuse: CIOR protocol Acute metabolic encephalopathy/toxic encephalopathy due to the above BHAVANA secondary to vasomotor nephropathy: treat with IVF Hypertension: watch bp closely, prn IV antihypertensives prn Distended abdomen: treat with NGT to suction Transaminitis with Ischemic hepatitis Acute cystitis with Sepsis, not sure POA, treated with antibiotics and this completed a few days 11/29/2019 ago no growth was noted on cultures no fever. We will continue off antibiotics at this time. Metabolic acidosis/alcoholic acidosis/lactic acidosis H. Influenzae, tracheobronchitis Hypernatremia: free water and monitor bmp closely Full code DVT ppx: sq heparin 12/04-: Patient failed CPAP trial became apneic according to documentation. No clinical change, continue current management, monitor H/H Awaiting labs. No new changes at this time opens eyes. Surgeon discussed trach and PEG with family but they want to get more information about hospice which they have been directed to the trimming caser. Patient overnight had a episode of vomiting. Zofran started. 12/11/19: I took over patient care on day 18, Patient remains intubated, daily weaning trails. Trach and PEG planned once family consents. Mother is Anh Jesus @ [phone]. CCT 31 minutes 12/12/19: transfuse PRBC, s/p trach and PEG 12/13/19: Trach and PEG done, New fevers today, suspected Aspiration Pneumonitis vs Atelectasis; get blood cultures and empirically treat with ABX, levaquin/flagyl IV combo. Renewed restraints. ARF improved drastically as Cr went from 2.8 to 1.9 overnigh. however, WBC skyrocketed to 38.3k from 18k. Will repeat bmp and cbc, CCT 33 minutes 12/14/19: WBC improved slightly, potassium 2.5, renal function continue to impr ove. replete potassium, still febrile, re-consulted ID; give free water flushes via PEG. Dispo: aggressive wean and once off vent will have to discharge home, no insurance. 12/15/19: Still on MV Peep 6 fiO2 50%, ordered AM labs, renewed restraints. Right arm swollen, get Venous doppler History Interval history: Patient was seen and examined. Follow-up on current diagnosis of Respiratory failure. Overnight uneventful as no events directly reported to me. Imaging, nursing note, chart, labs and old chart reviewed. Hospitalist Physical - Physical exam Narrative exam: Gen: critical ill, intubated, unresponsive not on sedation HEENT: ETT in place Neck: supple, no adenopathy, no thyromegaly, no JVD CVS/Heart: Regular Tachycardia, normal S1S2, pulses present bilaterally Chest/Lungs: CTA B, Symmetrical chest expansion, good air entry bilaterally GI/Abdomen: soft, NTND, good bowel sounds, no guarding or rebound MSK: right arm swollen Neuro: doesnt follow commands Psych: not responding - Constitutional Vitals: Temp Pulse Resp BP Pulse Ox 98.4 F 133 H 23 142/89 95 12/15/19 03:33 12/15/19 06:00 12/15/19 06:00 12/15/19 06:00 12/15/19 06:00 General appearance: Present: no acute distress, other (on vent with sedation) Results - Labs CBC & Chem 7: 12/15/19 07:23 12/15/19 07:23 Labs: Laboratory Last Values WBC 33.3 K/mm3 (4.5-11.0) H 12/14/19 08:48 RBC 2.70 M/mm3 (3.65-5.03) L 12/14/19 08:48 Hgb 7.9 gm/dl (10.1-14.3) L 12/14/19 08:48 Hgb 8.0 gm/dl (10.1-14.3) L 12/14/19 08:48 Hct 24.0 % (30.3-42.9) L 12/14/19 08:48 Hct 25.3 % (30.3-42.9) L 12/14/19 08:48 MCV 89 fl (79-97) 12/14/19 08:48 MCH 30 pg (28-32) 12/14/19 08:48 MCHC 33 % (30-34) 12/14/19 08:48 RDW 19.2 % (13.2-15.2) H 12/14/19 08:48 Plt Count 476 K/mm3 (140-440) H 12/14/19 08:48 Lymph % (Auto) 11.3 % (13.4-35.0) L 12/04/19 07:45 [place] % (Auto) 15.2 % (0.0-7.3) H 12/04/19 07:45 Eos % (Auto) 0.5 % (0.0-4.3) 12/04/19 07:45 Baso % (Auto) 0.6 % (0.0-1.8) 12/04/19 07:45 Lymph # 1.8 K/mm3 (1.2-5.4) 12/04/19 07:45 [place] # 2.4 K/mm3 (0.0-0.8) H 12/04/19 07:45 Eos # 0.1 K/mm3 (0.0-0.4) 12/04/19 07:45 Baso # 0.1 K/mm3 (0.0-0.1) 12/04/19 07:45 Add Manual Diff Complete 12/13/19 07:48 Total Counted 100 12/13/19 07:48 Seg Neutrophils % Camp Attendant 12/13/19 07:48 Seg Neuts % (Manual) 93.0 % (40.0-70.0) H 12/13/19 07:48 Band Neutrophils % 3.0 % 12/13/19 07:48 Lymphocytes % (Manual) 1.0 % (13.4-35.0) L 12/13/19 07:48 Reactive Lymphs % (Man) 0 % 03/26/20 07:48 Monocytes % (Manual) 1.0 % (0.0-7.3) 12/13/19 07:48 Eosinophils % (Manual) 1.0 % (0.0-4.3) 12/13/19 07:48 Basophils % (Manual) 1.0 % (0.0-1.8) 12/13/19 07:48 Metamyelocytes % 0 % 12/13/19 07:48 Myelocytes % 0 % 12/13/19 07:48 Promyelocytes % 0 % 12/13/19 07:48 Blast Cells % 0 % 12/13/19 07:48 Nucleated RBC % Not Reportable 12/13/19 07:48 Seg Neutrophils # 11.5 K/mm3 (1.8-7.7) H 12/04/19 07:45 Seg Neutrophils # Man 35.6 K/mm3 (1.8-7.7) H 12/13/19 07:48 Band Neutrophils # 1.1 K/mm3 12/13/19 07:48 Lymphocytes # (Manual) 0.4 K/mm3 (1.2-5.4) L 12/13/19 07:48 Abs React Lymphs (Man) 0.0 K/mm3 12/13/19 07:48 Monocytes # (Manual) 0.4 K/mm3 (0.0-0.8) 12/13/19 07:48 Eosinophils # (Manual) 0.4 K/mm3 (0.0-0.4) 12/13/19 07:48 Basophils # (Manual) 0.4 K/mm3 (0.0-0.1) H 12/13/19 07:48 Metamyelocytes # 0.0 K/mm3 12/13/19 07:48 Myelocytes # 0.0 K/mm3 12/13/19 07:48 Promyelocytes # 0.0 K/mm3 12/13/19 07:48 Blast Cells # 0.0 K/mm3 12/13/19 07:48 Pathologist Review 12/13/19 07:48 WBC Morphology Not Reportable 12/01/19 08:23 Hypersegmented Neuts Not Reportable 12/13/19 07:48 Hyposegmented Neuts Not Reportable 12/13/19 07:48 Hypogranular Neuts Not Reportable 12/13/19 07:48 Smudge Cells Not Reportable 12/13/19 07:48 Toxic Granulation Not Reportable 12/13/19 07:48 Toxic Vacuolation Not Reportable 12/13/19 07:48 Dohle Bodies Not Reportable 12/13/19 07:48 Pelger-Huet Anomaly Not Reportable 12/13/19 07:48 Dominique Rods Not Reportable 12/13/19 07:48 Platelet Estimate Consistent w auto 12/13/19 07:48 Clumped Platelets Not Reportable 12/13/19 07:48 Plt Clumps, EDTA Not Reportable 12/13/19 07:48 Large Platelets Not Reportable 12/13/19 07:48 Giant Platelets Not Reportable 12/13/19 07:48 Platelet Satelliting Not Reportable 12/13/19 07:48 Plt Morphology Comment Not Reportable 12/13/19 07:48 RBC Morphology Not Reportable 12/13/19 07:48 Dimorphic RBCs Not Reportable 12/13/19 07:48 Polychromasia Not Reportable 12/13/19 07:48 Hypochromasia 1+ 12/13/19 07:48 Poikilocytosis Not Reportable 12/13/19 07:48 Anisocytosis 1+ 12/13/19 07:48 Microcytosis Not Reportable 12/13/19 07:48 Macrocytosis Few 12/13/19 07:48 Spherocytes Not Reportable 12/13/19 07:48 Pappenheimer Bodies Not Reportable 12/13/19 07:48 Sickle Cells Not Reportable 12/13/19 07:48 Target Cells Not Reportable 12/13/19 07:48 Tear Drop Cells Not Reportable 12/13/19 07:48 Ovalocytes Not Reportable 12/13/19 07:48 Helmet Cells Not Reportable 12/13/19 07:48 Frias-Elfrida Bodies Not Reportable 12/13/19 07:48 [place] Rings Not Reportable 12/13/19 07:48 Jamshid Cells Not Reportable 12/13/19 07:48 Bite Cells Not Reportable 12/13/19 07:48 Crenated Cell Not Reportable 12/13/19 07:48 Elliptocytes Not Reportable 12/13/19 07:48 Acanthocytes (Spur) Not Reportable 12/13/19 07:48 Rouleaux Not Reportable 12/13/19 07:48 Hemoglobin C Crystals Not Reportable 12/13/19 07:48 Schistocytes Not Reportable 12/13/19 07:48 Malaria parasites Not Reportable 12/13/19 07:48 Gregg Bodies Not Reportable 12/13/19 07:48 Hem Pathologist Commnt Sent to pathology 12/13/19 07:48 PT 17.0 Sec. (12.2-14.9) H 11/23/19 03:47 INR 1.36 (0.87-1.13) H 11/23/19 03:47 APTT 128.2 Sec. (24.2-36.6) H* 11/23/19 03:47 Heparin Anti-Xa Level 0.31 U.I./ml (0.3-0.7) 11/23/19 09:03 ABG pH 7.444 pH Units (7.350-7.450) 12/14/19 16:15 ABG pCO2 35.4 mm Hg 12/14/19 16:15 ABG pO2 73.6 mm Hg (80.0-90.0) L 12/14/19 16:15 ABG HCO3 23.7 mmol/L (20.0-26.0) 12/14/19 16:15 ABG O2 Saturation 96.3 % (95.0-99.0) 12/14/19 16:15 ABG O2 Content 10.2 (0.0-44) 12/14/19 16:15 ABG Base Excess -0.2 mmol/L (-2.0-3.0) 12/14/19 16:15 ABG Hemoglobin 7.6 gm/dl (12.0-16.0) L 12/14/19 16:15 ABG Carboxyhemoglobin 1.8 % (0.0-5.0) 12/14/19 16:15 ABG Methemoglobin 0.6 % (0.0-1.5) 12/14/19 16:15 Oxyhemoglobin 94.0 % (95.0-99.0) L 12/14/19 16:15 FiO2 30 % 12/14/19 16:15 Sodium 153 mmol/L (137-145) H 12/14/19 10:31 Potassium 2.5 mmol/L (3.6-5.0) L* 12/14/19 10:31 Chloride 114.9 mmol/L (98-107) H 12/14/19 10:31 Carbon Dioxide 20 mmol/L (22-30) L 12/14/19 10:31 Anion Gap 21 mmol/L 12/14/19 10:31 BUN 38 mg/dL (7-17) H 12/14/19 10:31 Creatinine 1.4 mg/dL (0.7-1.2) H 12/14/19 10:31 Estimated GFR 47 ml/min 12/14/19 10:31 BUN/Creatinine Ratio 27 % 12/14/19 10:31 Glucose 177 mg/dL (65-100) H 12/14/19 10:31 POC Glucose 148 (70-105) H 12/15/19 05:27 Lactic Acid 1.80 mmol/L (0.7-2.0) 11/25/19 05:05 Calcium 9.3 mg/dL (8.4-10.2) 12/14/19 10:31 Ionized Calcium 4.5 mg/dL (4.8-5.6) L 11/23/19 06:32 Phosphorus 4.20 mg/dL (2.5-4.5) D 11/28/19 08:59 Magnesium 2.30 mg/dL (1.7-2.3) 11/29/19 13:41 Total Bilirubin 0.40 mg/dL (0.1-1.2) 12/13/19 07:48 AST 27 units/L (5-40) 12/13/19 07:48 ALT 26 units/L (7-56) 12/13/19 07:48 Alkaline Phosphatase 316 units/L (35-129) H 12/13/19 07:48 Ammonia 42.0 umol/L (25-60) 11/29/19 13:41 Total Creatine Kinase 139 units/L (30-135) H 11/22/19 23:27 CK-MB (CK-2) 8.3 ng/mL (0.0-4.0) H 11/22/19 23:27 CK-MB (CK-2) Rel Index 5.9 (0-4) H 11/22/19 23:27 Troponin T < 0.010 ng/mL (0.00-0.029) 11/22/19 23:27 Total Protein 6.8 g/dL (6.3-8.2) 12/13/19 07:48 Albumin 2.4 g/dL (3.9-5) L 12/13/19 07:48 Albumin/Globulin Ratio 0.5 % 12/13/19 07:48 Lipase 18 units/L (13-60) 11/23/19 00:34 Procalcitonin 1.09 ng/mL (<0.15) 11/23/19 04:53 Urine Color Yellow (Yellow) 11/22/19 23:17 Urine Turbidity Cloudy (Clear) 11/22/19 23:17 Urine pH 6.0 (5.0-7.0) 11/22/19 23:17 Ur Specific [place] 1.010 (1.003-1.030) 11/22/19 23:17 Urine Protein >500 mg/dL (Negative) 11/22/19 23:17 Urine Glucose (UA) >=500 mg/dL (Negative) 11/22/19 23:17 Urine Ketones 20 mg/dL (Negative) 11/22/19 23:17 Urine Blood Mod (Negative) 11/22/19 23:17 Urine Nitrite Neg (Negative) 11/22/19 23:17 Urine Bilirubin Neg (Negative) 11/22/19 23:17 Urine Urobilinogen 4.0 mg/dL (<2.0) 11/22/19 23:17 Ur Leukocyte Esterase Neg (Negative) 11/22/19 23:17 Urine WBC (Auto) 40.0 /HPF (0.0-6.0) H 11/22/19 23:17 Urine RBC (Auto) 10.0 /HPF (0.0-6.0) 11/22/19 23:17 U Epithel Cells (Auto) 1.0 /HPF (0-13.0) 11/22/19 23:17 Urine Bacteria (Auto) 2+ /HPF (Negative) 11/22/19 23:17 Urine Mucus Few /HPF 11/22/19 23:17 Salicylates < 0.3 mg/dL (2.8-20.0) L 11/22/19 23:27 Urine Opiates Screen Presumptive negative 11/22/19 23:17 Urine Methadone Screen Presumptive negative 11/22/19 23:17 Acetaminophen < 5.0 ug/mL (10.0-30.0) L 11/22/19 23:27 Ur Barbiturates Screen Presumptive negative 11/22/19 23:17 Ur Phencyclidine Scrn Presumptive negative 11/22/19 23:17 Ur Amphetamines Screen Presumptive negative 11/22/19 23:17 U Benzodiazepines Scrn Presumptive negative 11/22/19 23:17 Urine Cocaine Screen Presumptive negative 11/22/19 23:17 U Marijuana (THC) Screen Presumptive negative 11/22/19 23:17 Drugs of Abuse Note Disclamer 11/22/19 23:17 Plasma/Serum Alcohol 0.08 % (0-0.07) H 11/22/19 23:27 Hepatitis A IgM Ab Non-reactive (NonReactive) 11/23/19 01:19 Hep Bs Antigen Non-reactive (Negative) 11/23/19 01:19 Hep B Core IgM Ab Non-reactive (NonReactive) 11/23/19 01:19 Hepatitis C Antibody Non-reactive (NonReactive) 11/23/19 01:19 Blood Type O POSITIVE 12/12/19 10:30 Antibody Screen Negative 12/12/19 10:30 Crossmatch See Detail 12/12/19 10:30 Microbiology: Microbiology 12/13/19 21:39 Peripheral/Venous Blood Culture - Preliminary NO GROWTH AFTER 24 HOURS 12/13/19 21:06 Peripheral/Venous Blood Culture - Preliminary NO GROWTH AFTER 24 HOURS - Diagnostic Impressions Diagnostic Impressions: Echocardiogram 11/23/19 03:58 Transthoracic Echocardiogram Indication: Cardiac arrest BP: 131/89 HR: 115 Conclusions *The study quality is technically difficult. *Global left ventricular wall motion and contractility are within normal limits. *The estimated ejection fraction is 55-60%. *Abnormal left ventricular diastolic filling is observed, consistent with impaired relaxation. *There is no pericardial effusion. Findings Procedure Info: The study quality is technically difficult. The study was technically limited due to the patient's inability to lay in the left lateral decubitus position. Left Ventricle: The left ventricular chamber size is normal. There is no left ventricular hypertrophy. Global left ventricular wall motion and contractility are within normal limits. Global left ventricular systolic function is normal. The estimated ejection fraction is 55-60%. Abnormal left ventricular diastolic filling is observed, consistent with impaired relaxation. Left Atrium: The left atrial chamber size is normal. Aortic Valve: The aortic valve leaflets are mildly thickened. Mitral Valve: The mitral valve leaflets are mildly thickened. There is no evidence of mitral regurgitation. Tricuspid Valve: The tricuspid valve leaflets are normal. There is trace tricuspid regurgitation. The right ventricular systolic pressure is calculated at 33 mmHg. Pulmonic Valve: The pulmonic valve appears normal. Pericardium: The pericardium appears normal. There is no pericardial effusion. Aorta: The aorta appears normal. Venous: The inferior vena cava appears normal in size. Measurements Chambers 2D Name Value Normal Range IVSd (2D) 0.94 cm (0.6 - 1.1) LVPWd (2D) 0.81 cm (0.6 - 1.1) LVIDd (2D) 3.6 cm (3.7 - 5.6) LVIDs (2D) 2.27 cm (2 - 3.8) LV FS (2D) 36.93 % - EF Teichholz (2D) 67.76 % - Ao root diameter (2D) 3.03 cm (2 - 3.7) Volumes/Mass Name Value Normal Range LA ESV SP 4CH (A/L) 16.89 ml - LA ESV SP 4CH (MOD) 15.52 ml - Diastolic/Systolic Function Name Value Normal Range MV E-wave Vmax 0.55 m/sec - MV deceleration time 200.89 msec - MV A-wave Vmax 0.68 m/sec - MV E:A ratio 0.82 ratio - Aortic Valve Name Value Normal Range AV Vmax 1.1 m/sec - AV VTI 15.9 cm - AV peak gradient 4.86 mmHg - AV mean gradient 2.59 mmHg - LVOT diameter 2 cm - LVOT Vmax 1.03 m/sec - LVOT VTI 15.87 cm - LVOT peak gradient 4.24 mmHg - LVOT mean gradient 2.41 mmHg - SV LVOT 49.77 ml - JOSÉ MIGUEL (continuity Vmax) 2.93 cm2 - JOSÉ MIGUEL (continuity VTI) 3.13 cm2 - Tricuspid Valve Name Value Normal Range TR Vmax 2.74 m/sec - TR peak gradient 303 mmHg - RAP 3 mmHg - RVSP 33 mmHg - IVC diameter 1.77 cm (1.2 - 2.3) Pulmonic Valve/Qp:Qs Name Value Normal Range PV Vmax 0.77 m/sec - PV peak gradient 2.4 mmHg - PV acceleration time 114.18 msec - Del[place]/IV: Voiding Method Indwelling Catheter IV Catheter Type [Left Forearm Peripheral IV ] IV Catheter Type [Right Peripheral IV Antecubital] IV Catheter Type [Right Hand] Peripheral IV IV Catheter Type [Right Wrist] Peripheral IV IV Catheter Type [Left Wrist] Peripheral IV IV Catheter Type [Left Peripheral IV Antecubital] IV Catheter Type [Right INT / Saline Lock Forearm] IV Catheter Type [Left Hand] Peripheral IV Active Medications - Current Medications Current Medications: Generic Name Dose Route Start Last Admin Trade Name Freq PRN Reason Stop Dose Admin Acetaminophen 650 mg 12/06/19 10:25 12/14/19 22:17 Tylenol FEEDTUBE 650 mg Q6H PRN Administration TEMP >/=100.3 Lipase/Protease/Amylase 1 each 11/23/19 11:[address] 10,500 Unit FEEDTUBE PRN PRN For Clogged Feeding Tube Chlordiazepoxide HCl 75 mg 12/14/19 16:01 12/15/19 06:55 Librium PO 75 mg Q8HR LUCHO Administration Fentanyl 25 mcg 12/04/19 17:00 12/13/19 17:42 Duragesic TD 25 mcg Q3D LUCHO Administration Fentanyl 50 mcg 12/05/19 02:10 12/12/19 20:04 Sublimaze IV 50 mcg Q10MIN PRN Administration ANALGESIA Heparin Sodium (Porcine) 5,000 unit 11/23/19 22:00 12/14/19 22:19 Heparin SUB-Q 5,000 unit Q12HR LUCHO Administration Hydralazine HCl 10 mg 11/24/19 00:45 12/13/19 05:19 Apresoline IV 10 mg Q6H PRN Administration SBP > 160 Hydrophilic Ointment 1 applic 11/22/19 23:23 Vaseline Lip Therapy TP Q2HR PRN Dry Lips Hydroxyzine Pamoate 25 mg 12/06/19 10:00 12/14/19 22:20 Vistaril PO 25 mg BID LUCHO Administration Cefepime HCl 2 gm in 100 mls @ 200 mls/hr 12/14/19 22:00 12/14/19 22:19 Cefepime/Ns 2 Gm/100 Ml IV 200 mls/hr Q12HR LUCHO Administration Protocol Vancomycin HCl 750 mg/ Sodium 265 mls @ 132.5 mls/hr 12/14/19 20:00 12/14/19 22:18 Chloride IV 132.5 mls/hr Q24H LUCHO Administration Lactulose 30 gm 12/11/19 11:00 12/14/19 22:17 Cephulac PO 30 gm BID LUCHO Administration Lansoprazole 30 mg 11/27/19 10:00 12/14/19 09:36 Prevacid Solutab FEEDTUBE 30 mg QDAY LUCHO Administration Levetiracetam 500 mg 11/29/19 10:00 12/14/19 22:17 Keppra PO 500 mg BID LUCHO Administration Lorazepam 2 mg 11/26/19 11:09 12/13/19 05:19 Ativan IV 2 mg Q4H PRN Administration Agitation Mirtazapine 30 mg 12/06/19 10:00 12/14/19 09:37 Remeron PO 30 mg DAILY LUCHO Administration Morphine Sulfate 2 mg 12/12/19 18:40 12/14/19 22:18 Morphine IV 2 mg Q4H PRN Administration Pain, Moderate (4-6) Multi-Ingred Cream/Lotion/Oil/Oint 1 applic 11/22/19 23:23 Artificial Tears Ophth Oint OU Q4HR PRN Dry Eye(s) Ondansetron HCl 4 mg 12/10/19 07:53 12/10/19 09:51 Zofran IV 4 mg Q4H PRN Administration Nausea And Vomiting Quetiapine Fumarate 300 mg 12/07/19 22:00 12/14/19 22:17 Seroquel PO 300 mg QHS LUCHO Administration Scopolamine 1 each 12/12/19 15:00 12/12/19 17:35 Transderm-Scop TD 1 each Q3D LUCHO Administration Senna/Docusate Sodium 2 tab 12/10/19 10:00 12/14/19 22:18 Senokot S PO 2 tab BID LUCHO Administration Sertraline HCl 25 mg 12/06/19 10:00 12/14/19 09:37 Zoloft PO 25 mg QDAY LUCHO Administration Simple Syrup 15 ml 11/23/19 11:50 Simple Syrup FEEDTUBE PRN PRN Hypoglycemia Simple Syrup 30 ml 11/23/19 11:50 Simple Syrup FEEDTUBE PRN PRN Hypoglycemia Sodium Bicarbonate 325 mg 11/23/19 11:50 Sodium Bicarbonate FEEDTUBE PRN PRN For Clogged Feeding Tube Tamsulosin HCl 0.4 mg 12/14/19 13:00 12/14/19 14:00 Flomax PO 0.4 mg QDAY LUCHO Administration Nutrition/Malnutrition Assess - Dietary Evaluation Nutrition/Malnutrition Findings: Nutrition Notes Start: 11/23/19 11:29 Freq: Status: Active Protocol: Document 12/14/19 15:37 LM (Rec: 12/14/19 15:39 LM [id number]) Nutrition Notes Initial or Follow up Reassessment Current Diagnosis Hypertension Other Pertinent Diagnosis Cardaic arrest, ETOH dependence, UTI Current Diet Vital AF 1.2 at 50 ml/hr Labs/Tests Reviewed Pertinent Medications Reviewed Height 5 ft 6 in Weight 54.8 kg [place] Body Weight (kg) 59.09 BMI 19.5 Subjective/Other Information Pt's TF restarted yesterday and tolerating. Percent of energy/protein needs met: 100%/100% Burn Absent Trauma Absent GI Symptoms None Current % PO Negligible Minimum of two criteria No Muscle Mass Mild Depletion (non-severe) #1 Nutrition Diagnosis Inadequate oral intake Diagnosis Progress(for reassessment Continues documentation) Is patient on ventilator? Yes Is Patient Ambulatory and/or Out of Bed No REE-([facility]-confined to bed) 1402.224 Calculation Used for Recommendations [facility] Additional Notes Protein: 66-110g (1.2-2g/kg) Fluid: 1 ml/kcal Nutrition Intervention Change Diet Order: TF Nutrition Support: Vital AF 1.2 at 50 ml/hr Flush 200 ml q4h for hypernatremia Flush 80 ml q4h once hypernatremia resolves Kcal 1,440 Protein (gm) 90 Fluid (mL) 973 Goal #1 TF tolerance Goal #2 Meet at least 80% of energy and protein needs via TF Anticipated Discharge Needs: unable to determine at this time Follow-Up By: 12/27/19 Additional Comments F/U for TF tolerance
[2019-12-15 08:24] LABS: BUN/Creatinine Ratio 29; Blood Urea Nitrogen 29 mg/dL (7-17); Calcium 9.6 mg/dL (8.4-10.2); Hemolysis Index 2
[2019-12-15 08:30] LABS: Hematocrit 27.7 % (30.3-42.9); Hemoglobin 8.6 gm/dl (10.1-14.3); Mean Corpuscular HGB Conc 31 % (30-34); Mean Corpuscular Volume 89 fl (79-97); Platelet Count 473 K/mm3 (140-440); Red Blood Count 3.11 M/mm3 (3.65-5.03)
[2019-12-15] MEDS: levETIRAcetam 500 MG/5 ML ORAL LIQD PO SCH ×2 (09:49→21:27)
[2019-12-15] MEDS: HEPARIN 5,000 UNIT/1 ML VIAL SUB-Q SCH ×2 (09:49→21:27)
[2019-12-15] MEDS: LACTULOSE 20 GM/30 ML ORAL LIQD PO SCH ×2 (09:49→21:27)
[2019-12-15] MEDS: SENNOSIDES/DOCUSATE SODIUM 8.6/50 MG TAB PO SCH ×2 (09:50→21:28)
[2019-12-15] MEDS: MIRTAZAPINE 30 MG TAB PO SCH (09:50)
[2019-12-15] MEDS: TAMSULOSIN 0.4 MG CAP PO SCH (09:50)
[2019-12-15] MEDS: SERTRALINE 25 MG TAB PO SCH (09:50)
[2019-12-15] MEDS: hydrOXYzine PAMOATE 25 MG CAP PO SCH ×2 (09:51→21:30)
[2019-12-15] MEDS: CEFEPIME/NS 2 GM/100 ML 2 GM/100 ML BAG IV SCH ×2 (09:51→21:27)
[2019-12-15] MEDS: ACETAMINOPHEN 325 MG/10.15 ML ORAL LIQD UNIT DOSE FEEDTUBE PRN (10:03)
[2019-12-15] MEDS: LANSOPRAZOLE 30 MG SOLUTAB FEEDTUBE SCH (10:04)
--- NOTE | 2019-12-15 14:17 | Progress Note ---
Assessment and Plan Acute cardiopulmonary arrest with ROSC Acute hypoxemic respiratory failure on MVS s/p Trachesotomy Oropharyngeal dysphagia s/p PEG Acute [id number] encephalopathy Metabolic acidosis/alcoholic acidosis/Lactic acidosis( resolved) Ischemic hepatitis Thrombocytosis Tobacco use disorder Alcohol use Disorder Anemia Trach care, airway clearance, secretion management Tracheal aspirate for cultures If any fevers, or leukocytosis will start empiric antibiotics for HAP while awaiting cultures Get KUB for ongoing abdomina distension- early on during her hospitalization abdominal USS did not show any ascites Continue all critical care bundles as documented below. -Continue with MVS, Lung protective strategies, monitor airway pressures -VAP bundle addressed -Continue aspiration precautions, HOB>40 -Continue daily assessment for readiness for SBT -Continue Stress ulcer prophylaxis -Continue enteric nutritional support at goal rate. Monitor glycemic control, with target blood glucose 140-180 mg/dL while critically ill. -Avoid hypoglycemia - Continue to wean supplemental oxygen for target O2 sat's > 90% -ABG and CXR prn -Continue to trend leukocytosis -Continue to treat for hepatic encephalopathy-bowel regimen, no need to trend ammonia levels -Continue thiamine, multivitamin and electrolyte replacement -Continue to avoid nephrotoxins, adjust all medications for GFR and CrCL - Continue bronchodilators with pulmonary hygiene - Continue prn analgesia per CPOT score - Continue to maintain of sleep-wake cycle, avoid delirium - PT/OT/ROM exercises - Continue mobility protocol and skin assessment per protocol for pressure ulcer prevention - Continue to monitor for clinical seizures - continue other care per attending / other consultants CONDITION: CRITICAL PROGNOSIS: GUARDED CODE STATUS: FULL CODE The high probability of a clinically significant, sudden or life-threatening deterioration of the [respiratory, cardiovascular,GI/hepatology/Neurology] system(s) required my full and direct attention, intervention and personal management. The aggregate critical care time was [31] minutes without overlap. Time includes spent on; [x] Data Review and interpretation [x] Patient assessment and monitoring of vital signs [x] Documentation [x] Medication orders and management Subjective Date of service: 12/15/19 Principal diagnosis: Ac cardiopulmonary arrest; Ac hypoxemic resp failure; Acute encephalopathy Interval history: Patient is seen today for: Acute cardiopulmonary arrest with ROSC; Acute hypoxemic respiratory failure; Acute metabolic-toxic encephalopathy; Ischemic hepatitis; Leucocytosis with lactic acidosis; Tobacco use disorder; Alcohol use Disorder; High grade fevers Seen and examined at bedside; 24hour events reviewed; nursing and respiratory care staff consulted; no adverse overnight events reported to me; resting peacefully in bed; no fevers, s/p trach and PEG; did not tolerate weaning today, copious oral secretion concern fro aspiration of tube feedings. Vitals, albs, medications, chart reviewed. Objective Vital Signs - 12hr 12/15/19 12/15/19 12/15/19 03:00 03:33 04:00 Temperature 98.4 F Pulse Rate 135 H 136 H Pulse Rate [ 133 H From Monitor] Respiratory 27 H 26 H Rate Blood Pressure 132/77 133/86 O2 Sat by Pulse 92 94 Oximetry 12/15/19 12/15/19 12/15/19 04:05 05:00 06:00 Temperature Pulse Rate 136 H 131 H 133 H Pulse Rate [ From Monitor] Respiratory 22 23 Rate Blood Pressure 138/82 129/85 142/89 O2 Sat by Pulse 95 94 95 Oximetry 12/15/19 12/15/19 12/15/19 07:00 08:00 09:00 Temperature 100.2 F H Pulse Rate 135 H 138 H 137 H Pulse Rate [ From Monitor] Respiratory 24 27 H 27 H Rate Blood Pressure 147/93 147/90 147/91 O2 Sat by Pulse 96 96 95 Oximetry 12/15/19 12/15/19 12/15/19 09:07 10:00 11:00 Temperature Pulse Rate 137 H 138 H 137 H Pulse Rate [ From Monitor] Respiratory 29 H 26 H Rate Blood Pressure 147/91 146/93 133/81 O2 Sat by Pulse 95 96 96 Oximetry 12/15/19 12/15/19 12/15/19 12:00 13:00 14:00 Temperature 99.8 F H Pulse Rate 144 H 143 H 138 H Pulse Rate [ From Monitor] Respiratory 28 H 29 H 27 H Rate Blood Pressure 144/88 139/81 127/81 O2 Sat by Pulse 94 94 95 Oximetry Constitutional: no acute distress, other (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, s/p trach to MVS, mild dys-synchrony) Eyes: non-icteric ENT: oropharynx moist, other (s/p trach) Neck: supple, no lymphadenopathy, no JVD Effort: mildly labored Ascultation: Bilateral: diminished breath sounds, rhonchi Percussion: Bilateral: not dull Cardiovascular: regular rate and rhythm (tachycardia), other (S1,S2) Gastrointestinal: normoactive bowel sounds, soft, non-tender, non-distended Integumentary: normal Extremities: no cyanosis, no edema (has UXet edema), pulses normal, no ischemia or petechiae Neurologic: unable to assess, other (awake but not tracking voice ) Psychiatric: other (Psychiatric: Unable to assess) CBC and BMP: 12/18/19 04:53 12/18/19 04:53 ABG, PT/INR, D-dimer: ABG ABG pH 7.444 pH Units (7.350-7.450) 12/14/19 16:15 ABG pCO2 35.4 mm Hg 12/14/19 16:15 ABG pO2 73.6 mm Hg (80.0-90.0) L 12/14/19 16:15 ABG O2 Saturation 96.3 % (95.0-99.0) 12/14/19 16:15 PT/INR, D-dimer PT 17.0 Sec. (12.2-14.9) H 11/23/19 03:47 INR 1.36 (0.87-1.13) H 11/23/19 03:47 Abnormal lab findings: Abnormal Labs 11/22/19 11/22/19 11/22/19 23:17 23:18 23:27 WBC 21.2 H RBC 3.59 L Hgb 9.8 L Hct MCH 27 L RDW 18.6 H Plt Count 454 H Lymph % (Auto) [place] % (Auto) [place] # Seg Neutrophils % Seg Neuts % (Manual) 86.0 H Lymphocytes % (Manual) 9.0 L Seg Neutrophils # Seg Neutrophils # Man 18.2 H Lymphocytes # (Manual) Monocytes # (Manual) 1.1 H Basophils # (Manual) PT INR APTT ABG pH ABG pO2 ABG HCO3 ABG O2 Saturation ABG Base Excess ABG Hemoglobin Oxyhemoglobin Sodium Potassium Chloride Carbon Dioxide BUN Creatinine Glucose POC Glucose 53 L Lactic Acid Calcium Ionized Calcium Phosphorus Magnesium Total Bilirubin AST ALT Alkaline Phosphatase Ammonia Total Creatine Kinase CK-MB (CK-2) CK-MB (CK-2) Rel Index Total Protein Albumin Urine WBC (Auto) 40.0 H Salicylates Acetaminophen Plasma/Serum Alcohol Crossmatch 11/22/19 11/22/19 11/22/19 23:27 23:27 23:27 WBC RBC Hgb Hct MCH RDW Plt Count Lymph % (Auto) [place] % (Auto) [place] # Seg Neutrophils % Seg Neuts % (Manual) Lymphocytes % (Manual) Seg Neutrophils # Seg Neutrophils # Man Lymphocytes # (Manual) Monocytes # (Manual) Basophils # (Manual) PT INR APTT ABG pH ABG pO2 ABG HCO3 ABG O2 Saturation ABG Base Excess ABG Hemoglobin Oxyhemoglobin Sodium Potassium 2.4 L* Chloride 85.1 L Carbon Dioxide 19 L BUN Creatinine 0.5 L Glucose 261 H POC Glucose Lactic Acid Calcium Ionized Calcium Phosphorus Magnesium Total Bilirubin AST 609 H ALT 152 H Alkaline Phosphatase 160 H Ammonia 117.0 H Total Creatine Kinase 139 H CK-MB (CK-2) 8.3 H CK-MB (CK-2) Rel Index 5.9 H Total Protein Albumin 3.6 L Urine WBC (Auto) Salicylates < 0.3 L Acetaminophen Plasma/Serum Alcohol Crossmatch 11/22/19 11/22/19 11/23/19 23:27 23:27 01:10 WBC RBC Hgb Hct MCH RDW Plt Count Lymph % (Auto) [place] % (Auto) [place] # Seg Neutrophils % Seg Neuts % (Manual) Lymphocytes % (Manual) Seg Neutrophils # Seg Neutrophils # Man Lymphocytes # (Manual) Monocytes # (Manual) Basophils # (Manual) PT INR APTT ABG pH 7.273 L ABG pO2 209.7 H ABG HCO3 ABG O2 Saturation 99.2 H ABG Base Excess -3.9 L ABG Hemoglobin 10.6 L Oxyhemoglobin 93.9 L Sodium Potassium Chloride Carbon Dioxide BUN Creatinine Glucose POC Glucose Lactic Acid Calcium Ionized Calcium Phosphorus Magnesium Total Bilirubin AST ALT Alkaline Phosphatase Ammonia Total Creatine Kinase CK-MB (CK-2) CK-MB (CK-2) Rel Index Total Protein Albumin Urine WBC (Auto) Salicylates Acetaminophen < 5.0 L Plasma/Serum Alcohol 0.08 H Crossmatch 11/23/19 11/23/19 11/23/19 01:19 01:19 03:47 WBC RBC Hgb Hct MCH RDW Plt Count Lymph % (Auto) [place] % (Auto) [place] # Seg Neutrophils % Seg Neuts % (Manual) Lymphocytes % (Manual) Seg Neutrophils # Seg Neutrophils # Man Lymphocytes # (Manual) Monocytes # (Manual) Basophils # (Manual) PT 16.3 H INR 1.29 H APTT ABG pH ABG pO2 ABG HCO3 ABG O2 Saturation ABG Base Excess ABG Hemoglobin Oxyhemoglobin Sodium Potassium Chloride Carbon Dioxide BUN Creatinine Glucose POC Glucose Lactic Acid 2.10 H* 5.00 H* Calcium Ionized Calcium Phosphorus Magnesium Total Bilirubin AST ALT Alkaline Phosphatase Ammonia Total Creatine Kinase CK-MB (CK-2) CK-MB (CK-2) Rel Index Total Protein Albumin Urine WBC (Auto) Salicylates Acetaminophen Plasma/Serum Alcohol Crossmatch 11/23/19 11/23/19 11/23/19 03:47 03:47 04:53 WBC RBC Hgb 9.4 L Hct MCH RDW Plt Count Lymph % (Auto) [place] % (Auto) [place] # Seg Neutrophils % Seg Neuts % (Manual) Lymphocytes % (Manual) Seg Neutrophils # Seg Neutrophils # Man Lymphocytes # (Manual) Monocytes # (Manual) Basophils # (Manual) PT 17.0 H INR 1.36 H APTT 128.2 H* ABG pH ABG pO2 ABG HCO3 ABG O2 Saturation ABG Base Excess ABG Hemoglobin Oxyhemoglobin Sodium Potassium Chloride Carbon Dioxide 18 L BUN Creatinine 0.5 L Glucose 105 H POC Glucose Lactic Acid Calcium 8.3 L Ionized Calcium Phosphorus 2.40 L Magnesium Total Bilirubin 1.30 H AST 761 H ALT 158 H Alkaline Phosphatase 143 H Ammonia Total Creatine Kinase CK-MB (CK-2) CK-MB (CK-2) Rel Index Total Protein Albumin 2.8 L Urine WBC (Auto) Salicylates Acetaminophen Plasma/Serum Alcohol Crossmatch 11/23/19 11/23/19 11/23/19 05:12 06:32 06:32 WBC 16.8 H RBC 3.31 L Hgb 8.9 L Hct 28.7 L MCH 27 L RDW 18.6 H Plt Count Lymph % (Auto) [place] % (Auto) [place] # Seg Neutrophils % Seg Neuts % (Manual) 94.0 H Lymphocytes % (Manual) 1.0 L Seg Neutrophils # Seg Neutrophils # Man 15.8 H Lymphocytes # (Manual) 0.2 L Monocytes # (Manual) Basophils # (Manual) PT INR APTT ABG pH ABG pO2 ABG HCO3 ABG O2 Saturation ABG Base Excess -3.2 L ABG Hemoglobin 9.0 L Oxyhemoglobin 93.6 L Sodium Potassium Chloride Carbon Dioxide BUN Creatinine Glucose POC Glucose Lactic Acid Calcium Ionized Calcium 4.5 L Phosphorus Magnesium Total Bilirubin AST ALT Alkaline Phosphatase Ammonia Total Creatine Kinase CK-MB (CK-2) CK-MB (CK-2) Rel Index Total Protein Albumin Urine WBC (Auto) Salicylates Acetaminophen Plasma/Serum Alcohol Crossmatch 11/23/19 11/24/19 11/24/19 06:32 04:35 04:35 WBC RBC Hgb Hct MCH RDW Plt Count Lymph % (Auto) [place] % (Auto) [place] # Seg Neutrophils % Seg Neuts % (Manual) Lymphocytes % (Manual) Seg Neutrophils # Seg Neutrophils # Man Lymphocytes # (Manual) Monocytes # (Manual) Basophils # (Manual) PT INR APTT ABG pH ABG pO2 ABG HCO3 ABG O2 Saturation ABG Base Excess ABG Hemoglobin Oxyhemoglobin Sodium Potassium Chloride Carbon Dioxide BUN Creatinine Glucose POC Glucose Lactic Acid 3.30 H* Calcium Ionized Calcium Phosphorus Magnesium 1.40 L Total Bilirubin AST ALT Alkaline Phosphatase Ammonia 98.0 H Total Creatine Kinase CK-MB (CK-2) CK-MB (CK-2) Rel Index Total Protein Albumin Urine WBC (Auto) Salicylates Acetaminophen Plasma/Serum Alcohol Crossmatch 11/24/19 11/25/19 11/25/19 05:22 04:34 05:05 WBC 17.3 H RBC 2.88 L Hgb 7.8 L Hct 24.6 L MCH 27 L RDW 18.5 H Plt Count Lymph % (Auto) 7.7 L [place] % (Auto) 9.7 H [place] # 1.7 H Seg Neutrophils % 82.2 H Seg Neuts % (Manual) Lymphocytes % (Manual) Seg Neutrophils # 14.2 H Seg Neutrophils # Man Lymphocytes # (Manual) Monocytes # (Manual) Basophils # (Manual) PT INR APTT ABG pH 7.475 H ABG pO2 ABG HCO3 29.4 H 32.3 H ABG O2 Saturation ABG Base Excess 5.4 H 6.9 H ABG Hemoglobin 9.0 L 10.6 L Oxyhemoglobin 94.3 L Sodium Potassium Chloride Carbon Dioxide BUN Creatinine Glucose POC Glucose Lactic Acid Calcium Ionized Calcium Phosphorus Magnesium Total Bilirubin AST ALT Alkaline Phosphatase Ammonia Total Creatine Kinase CK-MB (CK-2) CK-MB (CK-2) Rel Index Total Protein Albumin Urine WBC (Auto) Salicylates Acetaminophen Plasma/Serum Alcohol Crossmatch 11/25/19 11/25/19 11/26/19 05:05 22:46 03:31 WBC RBC Hgb Hct MCH RDW Plt Count Lymph % (Auto) [place] % (Auto) [place] # Seg Neutrophils % Seg Neuts % (Manual) Lymphocytes % (Manual) Seg Neutrophils # Seg Neutrophils # Man Lymphocytes # (Manual) Monocytes # (Manual) Basophils # (Manual) PT INR APTT ABG pH 7.459 H ABG pO2 ABG HCO3 34.2 H ABG O2 Saturation ABG Base Excess 9.4 H ABG Hemoglobin 7.6 L Oxyhemoglobin 94.8 L Sodium 152 H D 147 H Potassium 2.3 L* D 2.8 L* D Chloride 107.8 H Carbon Dioxide 31 H D 33 H BUN Creatinine 0.6 L 0.6 L Glucose 148 H 177 H POC Glucose Lactic Acid Calcium Ionized Calcium Phosphorus Magnesium Total Bilirubin AST 105 H ALT 71 H Alkaline Phosphatase 155 H Ammonia Total Creatine Kinase CK-MB (CK-2) CK-MB (CK-2) Rel Index Total Protein 5.2 L D Albumin 2.9 L Urine WBC (Auto) Salicylates Acetaminophen Plasma/Serum Alcohol Crossmatch 11/26/19 11/26/19 11/27/19 08:24 08:24 04:20 WBC 12.0 H RBC 3.00 L Hgb 8.0 L 9.3 L Hct 25.9 L 29.7 L MCH 27 L RDW 18.5 H Plt Count Lymph % (Auto) [place] % (Auto) [place] # Seg Neutrophils % Seg Neuts % (Manual) 89.0 H Lymphocytes % (Manual) 4.0 L Seg Neutrophils # Seg Neutrophils # Man 10.7 H Lymphocytes # (Manual) 0.5 L Monocytes # (Manual) Basophils # (Manual) PT INR APTT ABG pH ABG pO2 ABG HCO3 ABG O2 Saturation ABG Base Excess ABG Hemoglobin Oxyhemoglobin Sodium 146 H Potassium 3.4 L D Chloride Carbon Dioxide BUN Creatinine 0.5 L Glucose 165 H POC Glucose Lactic Acid Calcium Ionized Calcium Phosphorus Magnesium Total Bilirubin AST 57 H ALT Alkaline Phosphatase 166 H Ammonia Total Creatine Kinase CK-MB (CK-2) CK-MB (CK-2) Rel Index Total Protein Albumin 2.9 L Urine WBC (Auto) Salicylates Acetaminophen Plasma/Serum Alcohol Crossmatch 11/27/19 11/27/19 11/27/19 04:28 04:28 04:42 WBC RBC Hgb Hct MCH RDW Plt Count Lymph % (Auto) [place] % (Auto) [place] # Seg Neutrophils % Seg Neuts % (Manual) Lymphocytes % (Manual) Seg Neutrophils # Seg Neutrophils # Man Lymphocytes # (Manual) Monocytes # (Manual) Basophils # (Manual) PT INR APTT ABG pH 7.470 H ABG pO2 74.0 L ABG HCO3 33.8 H ABG O2 Saturation ABG Base Excess 9.1 H ABG Hemoglobin 8.7 L Oxyhemoglobin 94.7 L Sodium 146 H Potassium 2.9 L* Chloride Carbon Dioxide BUN 25 H Creatinine Glucose 213 H POC Glucose Lactic Acid Calcium Ionized Calcium Phosphorus 1.00 L Magnesium Total Bilirubin AST ALT Alkaline Phosphatase Ammonia Total Creatine Kinase CK-MB (CK-2) CK-MB (CK-2) Rel Index Total Protein Albumin Urine WBC (Auto) Salicylates Acetaminophen Plasma/Serum Alcohol Crossmatch 11/27/19 11/27/19 11/27/19 05:37 12:20 15:46 WBC RBC Hgb Hct MCH RDW Plt Count Lymph % (Auto) [place] % (Auto) [place] # Seg Neutrophils % Seg Neuts % (Manual) Lymphocytes % (Manual) Seg Neutrophils # Seg Neutrophils # Man Lymphocytes # (Manual) Monocytes # (Manual) Basophils # (Manual) PT INR APTT ABG pH ABG pO2 ABG HCO3 ABG O2 Saturation ABG Base Excess ABG Hemoglobin Oxyhemoglobin Sodium 146 H Potassium 3.5 L D Chloride Carbon Dioxide BUN 24 H Creatinine 0.6 L Glucose 187 H POC Glucose 117 H 220 H Lactic Acid Calcium Ionized Calcium Phosphorus Magnesium Total Bilirubin AST ALT Alkaline Phosphatase Ammonia Total Creatine Kinase CK-MB (CK-2) CK-MB (CK-2) Rel Index Total Protein Albumin Urine WBC (Auto) Salicylates Acetaminophen Plasma/Serum Alcohol Crossmatch 11/27/19 11/28/19 11/28/19 17:28 05:00 05:02 WBC RBC Hgb Hct MCH RDW Plt Count Lymph % (Auto) [place] % (Auto) [place] # Seg Neutrophils % Seg Neuts % (Manual) Lymphocytes % (Manual) Seg Neutrophils # Seg Neutrophils # Man Lymphocytes # (Manual) Monocytes # (Manual) Basophils # (Manual) PT INR APTT ABG pH ABG pO2 72.4 L ABG HCO3 33.6 H ABG O2 Saturation 94.1 L ABG Base Excess 7.3 H ABG Hemoglobin Oxyhemoglobin 91.8 L Sodium 146 H Potassium 3.3 L Chloride Carbon Dioxide BUN 25 H Creatinine 0.6 L Glucose 176 H POC Glucose 198 H Lactic Acid Calcium Ionized Calcium Phosphorus Magnesium Total Bilirubin AST ALT Alkaline Phosphatase Ammonia Total Creatine Kinase CK-MB (CK-2) CK-MB (CK-2) Rel Index Total Protein Albumin Urine WBC (Auto) Salicylates Acetaminophen Plasma/Serum Alcohol Crossmatch 11/28/19 11/28/19 11/29/19 05:02 18:55 10:43 WBC 15.2 H 19.0 H RBC 3.06 L 3.01 L Hgb 8.3 L 8.3 L Hct 27.0 L 26.4 L MCH 27 L RDW 19.0 H 19.7 H Plt Count 479 H 611 H Lymph % (Auto) [place] % (Auto) [place] # Seg Neutrophils % Seg Neuts % (Manual) 92.0 H Lymphocytes % (Manual) 2.0 L Seg Neutrophils # Seg Neutrophils # Man 14.0 H Lymphocytes # (Manual) 0.3 L Monocytes # (Manual) Basophils # (Manual) PT INR APTT ABG pH ABG pO2 ABG HCO3 ABG O2 Saturation ABG Base Excess ABG Hemoglobin Oxyhemoglobin Sodium Potassium Chloride Carbon Dioxide BUN Creatinine Glucose POC Glucose 138 H Lactic Acid Calcium Ionized Calcium Phosphorus Magnesium Total Bilirubin AST ALT Alkaline Phosphatase Ammonia Total Creatine Kinase CK-MB (CK-2) CK-MB (CK-2) Rel Index Total Protein Albumin Urine WBC (Auto) Salicylates Acetaminophen Plasma/Serum Alcohol Crossmatch 11/29/19 11/29/19 11/29/19 10:43 12:27 19:25 WBC RBC Hgb Hct MCH RDW Plt Count Lymph % (Auto) [place] % (Auto) [place] # Seg Neutrophils % Seg Neuts % (Manual) Lymphocytes % (Manual) Seg Neutrophils # Seg Neutrophils # Man Lymphocytes # (Manual) Monocytes # (Manual) Basophils # (Manual) PT INR APTT ABG pH ABG pO2 ABG HCO3 ABG O2 Saturation ABG Base Excess ABG Hemoglobin Oxyhemoglobin Sodium Potassium 2.8 L* Chloride Carbon Dioxide BUN 20 H Creatinine 0.5 L Glucose 121 H POC Glucose 128 H 120 H Lactic Acid Calcium Ionized Calcium Phosphorus Magnesium Total Bilirubin AST ALT Alkaline Phosphatase Ammonia Total Creatine Kinase CK-MB (CK-2) CK-MB (CK-2) Rel Index Total Protein Albumin Urine WBC (Auto) Salicylates Acetaminophen Plasma/Serum Alcohol Crossmatch 11/29/19 11/30/19 11/30/19 23:46 04:10 05:02 WBC RBC Hgb Hct MCH RDW Plt Count Lymph % (Auto) [place] % (Auto) [place] # Seg Neutrophils % Seg Neuts % (Manual) Lymphocytes % (Manual) Seg Neutrophils # Seg Neutrophils # Man Lymphocytes # (Manual) Monocytes # (Manual) Basophils # (Manual) PT INR APTT ABG pH ABG pO2 76.3 L ABG HCO3 32.5 H ABG O2 Saturation ABG Base Excess 6.9 H ABG Hemoglobin 8.0 L Oxyhemoglobin 92.6 L Sodium Potassium Chloride Carbon Dioxide BUN Creatinine Glucose POC Glucose 116 H 128 H Lactic Acid Calcium Ionized Calcium Phosphorus Magnesium Total Bilirubin AST ALT Alkaline Phosphatase Ammonia Total Creatine Kinase CK-MB (CK-2) CK-MB (CK-2) Rel Index Total Protein Albumin Urine WBC (Auto) Salicylates Acetaminophen Plasma/Serum Alcohol Crossmatch 11/30/19 11/30/19 11/30/19 05:25 05:25 12:59 WBC 18.4 H RBC 3.10 L Hgb 8.5 L Hct 27.5 L MCH 27 L RDW 20.9 H Plt Count 691 H Lymph % (Auto) 7.1 L [place] % (Auto) 7.7 H [place] # 1.4 H Seg Neutrophils % 83.4 H Seg Neuts % (Manual) Lymphocytes % (Manual) Seg Neutrophils # 15.4 H Seg Neutrophils # Man Lymphocytes # (Manual) Monocytes # (Manual) Basophils # (Manual) PT INR APTT ABG pH ABG pO2 ABG HCO3 ABG O2 Saturation ABG Base Excess ABG Hemoglobin Oxyhemoglobin Sodium 146 H Potassium Chloride 107.2 H Carbon Dioxide BUN Creatinine 0.5 L Glucose 132 H POC Glucose 124 H Lactic Acid Calcium Ionized Calcium Phosphorus Magnesium Total Bilirubin AST 246 H ALT 274 H Alkaline Phosphatase 203 H Ammonia Total Creatine Kinase CK-MB (CK-2) CK-MB (CK-2) Rel Index Total Protein 5.4 L Albumin 2.9 L Urine WBC (Auto) Salicylates Acetaminophen Plasma/Serum Alcohol Crossmatch 11/30/19 12/01/19 12/01/19 17:53 00:05 05:10 WBC RBC Hgb Hct MCH RDW Plt Count Lymph % (Auto) [place] % (Auto) [place] # Seg Neutrophils % Seg Neuts % (Manual) Lymphocytes % (Manual) Seg Neutrophils # Seg Neutrophils # Man Lymphocytes # (Manual) Monocytes # (Manual) Basophils # (Manual) PT INR APTT ABG pH ABG pO2 ABG HCO3 ABG O2 Saturation ABG Base Excess ABG Hemoglobin Oxyhemoglobin Sodium Potassium Chloride Carbon Dioxide BUN Creatinine Glucose POC Glucose 113 H 143 H 145 H Lactic Acid Calcium Ionized Calcium Phosphorus Magnesium Total Bilirubin AST ALT Alkaline Phosphatase Ammonia Total Creatine Kinase CK-MB (CK-2) CK-MB (CK-2) Rel Index Total Protein Albumin Urine WBC (Auto) Salicylates Acetaminophen Plasma/Serum Alcohol Crossmatch 12/01/19 12/01/19 12/01/19 05:33 08:23 08:23 WBC 22.7 H RBC 2.88 L Hgb 7.9 L Hct 25.2 L MCH 27 L RDW 21.0 H Plt Count 732 H Lymph % (Auto) [place] % (Auto) [place] # Seg Neutrophils % Seg Neuts % (Manual) 91.0 H Lymphocytes % (Manual) 3.0 L Seg Neutrophils # Seg Neutrophils # Man 20.7 H Lymphocytes # (Manual) 0.7 L Monocytes # (Manual) 1.1 H Basophils # (Manual) PT INR APTT ABG pH ABG pO2 68.6 L ABG HCO3 34.1 H ABG O2 Saturation ABG Base Excess 9.0 H ABG Hemoglobin 6.5 L Oxyhemoglobin 94.7 L Sodium Potassium Chloride Carbon Dioxide BUN Creatinine 0.5 L Glucose 125 H POC Glucose Lactic Acid Calcium Ionized Calcium Phosphorus Magnesium Total Bilirubin AST ALT Alkaline Phosphatase Ammonia Total Creatine Kinase CK-MB (CK-2) CK-MB (CK-2) Rel Index Total Protein Albumin Urine WBC (Auto) Salicylates Acetaminophen Plasma/Serum Alcohol Crossmatch 12/01/19 12/01/19 12/01/19 13:21 17:54 20:59 WBC RBC Hgb Hct MCH RDW Plt Count Lymph % (Auto) [place] % (Auto) [place] # Seg Neutrophils % Seg Neuts % (Manual) Lymphocytes % (Manual) Seg Neutrophils # Seg Neutrophils # Man Lymphocytes # (Manual) Monocytes # (Manual) Basophils # (Manual) PT INR APTT ABG pH ABG pO2 78.3 L ABG HCO3 33.8 H ABG O2 Saturation 94.9 L ABG Base Excess 7.9 H ABG Hemoglobin 11.5 L Oxyhemoglobin 92.3 L Sodium Potassium Chloride Carbon Dioxide BUN Creatinine Glucose POC Glucose 111 H 115 H Lactic Acid Calcium Ionized Calcium Phosphorus Magnesium Total Bilirubin AST ALT Alkaline Phosphatase Ammonia Total Creatine Kinase CK-MB (CK-2) CK-MB (CK-2) Rel Index Total Protein Albumin Urine WBC (Auto) Salicylates Acetaminophen Plasma/Serum Alcohol Crossmatch 12/02/19 12/03/19 12/04/19 12:55 20:00 04:26 WBC 15.2 H RBC 2.69 L Hgb 7.4 L Hct 23.6 L MCH 27 L RDW 19.9 H Plt Count 838 H Lymph % (Auto) [place] % (Auto) [place] # Seg Neutrophils % Seg Neuts % (Manual) Lymphocytes % (Manual) Seg Neutrophils # Seg Neutrophils # Man Lymphocytes # (Manual) Monocytes # (Manual) Basophils # (Manual) PT INR APTT ABG pH ABG pO2 68.3 L ABG HCO3 33.5 H ABG O2 Saturation 93.5 L ABG Base Excess 8.4 H ABG Hemoglobin 7.3 L Oxyhemoglobin 90.9 L Sodium Potassium Chloride Carbon Dioxide BUN Creatinine Glucose POC Glucose 107 H Lactic Acid Calcium Ionized Calcium Phosphorus Magnesium Total Bilirubin AST ALT Alkaline Phosphatase Ammonia Total Creatine Kinase CK-MB (CK-2) CK-MB (CK-2) Rel Index Total Protein Albumin Urine WBC (Auto) Salicylates Acetaminophen Plasma/Serum Alcohol Crossmatch 12/04/19 12/04/19 12/04/19 04:26 07:45 12:02 WBC 15.9 H RBC 2.88 L Hgb 7.9 L Hct 25.1 L MCH RDW 20.4 H Plt Count 839 H Lymph % (Auto) 11.3 L [place] % (Auto) 15.2 H [place] # 2.4 H Seg Neutrophils % 72.4 H Seg Neuts % (Manual) Lymphocytes % (Manual) Seg Neutrophils # 11.5 H Seg Neutrophils # Man Lymphocytes # (Manual) Monocytes # (Manual) Basophils # (Manual) PT INR APTT ABG pH ABG pO2 ABG HCO3 ABG O2 Saturation ABG Base Excess ABG Hemoglobin Oxyhemoglobin Sodium Potassium Chloride 96.5 L Carbon Dioxide BUN 21 H Creatinine 0.6 L Glucose 107 H POC Glucose 138 H Lactic Acid Calcium Ionized Calcium Phosphorus Magnesium Total Bilirubin AST ALT Alkaline Phosphatase Ammonia Total Creatine Kinase CK-MB (CK-2) CK-MB (CK-2) Rel Index Total Protein Albumin Urine WBC (Auto) Salicylates Acetaminophen Plasma/Serum Alcohol Crossmatch 12/04/19 12/05/19 12/05/19 18:16 11:55 18:36 WBC RBC Hgb Hct MCH RDW Plt Count Lymph % (Auto) [place] % (Auto) [place] # Seg Neutrophils % Seg Neuts % (Manual) Lymphocytes % (Manual) Seg Neutrophils # Seg Neutrophils # Man Lymphocytes # (Manual) Monocytes # (Manual) Basophils # (Manual) PT INR APTT ABG pH ABG pO2 ABG HCO3 ABG O2 Saturation ABG Base Excess ABG Hemoglobin Oxyhemoglobin Sodium Potassium Chloride Carbon Dioxide BUN Creatinine Glucose POC Glucose 135 H 125 H 135 H Lactic Acid Calcium Ionized Calcium Phosphorus Magnesium Total Bilirubin AST ALT Alkaline Phosphatase Ammonia Total Creatine Kinase CK-MB (CK-2) CK-MB (CK-2) Rel Index Total Protein Albumin Urine WBC (Auto) Salicylates Acetaminophen Plasma/Serum Alcohol Crossmatch 12/05/19 12/06/19 12/06/19 23:30 04:14 05:43 WBC RBC Hgb Hct MCH RDW Plt Count Lymph % (Auto) [place] % (Auto) [place] # Seg Neutrophils % Seg Neuts % (Manual) Lymphocytes % (Manual) Seg Neutrophils # Seg Neutrophils # Man Lymphocytes # (Manual) Monocytes # (Manual) Basophils # (Manual) PT INR APTT ABG pH ABG pO2 ABG HCO3 ABG O2 Saturation ABG Base Excess ABG Hemoglobin Oxyhemoglobin Sodium Potassium 5.6 H Chloride 95.0 L Carbon Dioxide BUN 48 H Creatinine 1.3 H D Glucose POC Glucose 126 H 121 H Lactic Acid Calcium Ionized Calcium Phosphorus Magnesium Total Bilirubin AST 89 H ALT 98 H Alkaline Phosphatase 476 H Ammonia Total Creatine Kinase CK-MB (CK-2) CK-MB (CK-2) Rel Index Total Protein Albumin 2.8 L Urine WBC (Auto) Salicylates Acetaminophen Plasma/Serum Alcohol Crossmatch 12/06/19 12/06/19 12/07/19 10:39 14:34 00:19 WBC 17.3 H RBC 2.60 L Hgb 7.1 L Hct 22.7 L MCH 27 L RDW 20.1 H Plt Count 832 H Lymph % (Auto) [place] % (Auto) [place] # Seg Neutrophils % Seg Neuts % (Manual) Lymphocytes % (Manual) Seg Neutrophils # Seg Neutrophils # Man Lymphocytes # (Manual) Monocytes # (Manual) Basophils # (Manual) PT INR APTT ABG pH ABG pO2 ABG HCO3 ABG O2 Saturation ABG Base Excess ABG Hemoglobin Oxyhemoglobin Sodium Potassium Chloride Carbon Dioxide BUN Creatinine Glucose POC Glucose 128 H 136 H Lactic Acid Calcium Ionized Calcium Phosphorus Magnesium Total Bilirubin AST ALT Alkaline Phosphatase Ammonia Total Creatine Kinase CK-MB (CK-2) CK-MB (CK-2) Rel Index Total Protein Albumin Urine WBC (Auto) Salicylates Acetaminophen Plasma/Serum Alcohol Crossmatch 12/07/19 12/07/19 12/07/19 03:44 03:44 05:53 WBC 16.2 H RBC 2.56 L Hgb 7.1 L Hct 22.3 L MCH RDW 19.4 H Plt Count 782 H Lymph % (Auto) [place] % (Auto) [place] # Seg Neutrophils % Seg Neuts % (Manual) Lymphocytes % (Manual) Seg Neutrophils # Seg Neutrophils # Man Lymphocytes # (Manual) Monocytes # (Manual) Basophils # (Manual) PT INR APTT ABG pH ABG pO2 ABG HCO3 ABG O2 Saturation ABG Base Excess ABG Hemoglobin Oxyhemoglobin Sodium Potassium Chloride 95.6 L Carbon Dioxide BUN 56 H Creatinine 1.4 H Glucose 120 H POC Glucose 128 H Lactic Acid Calcium 10.3 H Ionized Calcium Phosphorus Magnesium Total Bilirubin AST ALT Alkaline Phosphatase Ammonia Total Creatine Kinase CK-MB (CK-2) CK-MB (CK-2) Rel Index Total Protein Albumin Urine WBC (Auto) Salicylates Acetaminophen Plasma/Serum Alcohol Crossmatch 12/07/19 12/07/19 12/08/19 12:54 23:47 00:20 WBC RBC Hgb Hct MCH RDW Plt Count Lymph % (Auto) [place] % (Auto) [place] # Seg Neutrophils % Seg Neuts % (Manual) Lymphocytes % (Manual) Seg Neutrophils # Seg Neutrophils # Man Lymphocytes # (Manual) Monocytes # (Manual) Basophils # (Manual) PT INR APTT ABG pH ABG pO2 ABG HCO3 ABG O2 Saturation ABG Base Excess ABG Hemoglobin Oxyhemoglobin Sodium Potassium Chloride Carbon Dioxide BUN Creatinine Glucose POC Glucose 128 H 130 H 124 H Lactic Acid Calcium Ionized Calcium Phosphorus Magnesium Total Bilirubin AST ALT Alkaline Phosphatase Ammonia Total Creatine Kinase CK-MB (CK-2) CK-MB (CK-2) Rel Index Total Protein Albumin Urine WBC (Auto) Salicylates Acetaminophen Plasma/Serum Alcohol Crossmatch 12/08/19 12/08/19 12/08/19 06:38 12:04 18:26 WBC RBC Hgb Hct MCH RDW Plt Count Lymph % (Auto) [place] % (Auto) [place] # Seg Neutrophils % Seg Neuts % (Manual) Lymphocytes % (Manual) Seg Neutrophils # Seg Neutrophils # Man Lymphocytes # (Manual) Monocytes # (Manual) Basophils # (Manual) PT INR APTT ABG pH ABG pO2 ABG HCO3 ABG O2 Saturation ABG Base Excess ABG Hemoglobin Oxyhemoglobin Sodium Potassium Chloride Carbon Dioxide BUN Creatinine Glucose POC Glucose 137 H 129 H 150 H Lactic Acid Calcium Ionized Calcium Phosphorus Magnesium Total Bilirubin AST ALT Alkaline Phosphatase Ammonia Total Creatine Kinase CK-MB (CK-2) CK-MB (CK-2) Rel Index Total Protein Albumin Urine WBC (Auto) Salicylates Acetaminophen Plasma/Serum Alcohol Crossmatch 12/09/19 12/09/19 12/09/19 00:56 05:34 06:13 WBC RBC Hgb Hct MCH RDW Plt Count Lymph % (Auto) [place] % (Auto) [place] # Seg Neutrophils % Seg Neuts % (Manual) Lymphocytes % (Manual) Seg Neutrophils # Seg Neutrophils # Man Lymphocytes # (Manual) Monocytes # (Manual) Basophils # (Manual) PT INR APTT ABG pH ABG pO2 ABG HCO3 ABG O2 Saturation ABG Base Excess ABG Hemoglobin Oxyhemoglobin Sodium 146 H Potassium Chloride Carbon Dioxide BUN 66 H Creatinine 1.9 H Glucose 116 H POC Glucose 130 H 130 H Lactic Acid Calcium Ionized Calcium Phosphorus Magnesium Total Bilirubin AST ALT Alkaline Phosphatase Ammonia Total Creatine Kinase CK-MB (CK-2) CK-MB (CK-2) Rel Index Total Protein Albumin Urine WBC (Auto) Salicylates Acetaminophen Plasma/Serum Alcohol Crossmatch 12/09/19 12/09/19 12/10/19 11:52 17:50 00:14 WBC RBC Hgb Hct MCH RDW Plt Count Lymph % (Auto) [place] % (Auto) [place] # Seg Neutrophils % Seg Neuts % (Manual) Lymphocytes % (Manual) Seg Neutrophils # Seg Neutrophils # Man Lymphocytes # (Manual) Monocytes # (Manual) Basophils # (Manual) PT INR APTT ABG pH ABG pO2 ABG HCO3 ABG O2 Saturation ABG Base Excess ABG Hemoglobin Oxyhemoglobin Sodium Potassium Chloride Carbon Dioxide BUN Creatinine Glucose POC Glucose 135 H 120 H 116 H Lactic Acid Calcium Ionized Calcium Phosphorus Magnesium Total Bilirubin AST ALT Alkaline Phosphatase Ammonia Total Creatine Kinase CK-MB (CK-2) CK-MB (CK-2) Rel Index Total Protein Albumin Urine WBC (Auto) Salicylates Acetaminophen Plasma/Serum Alcohol Crossmatch 12/10/19 12/10/19 12/10/19 05:38 11:38 17:34 WBC RBC Hgb Hct MCH RDW Plt Count Lymph % (Auto) [place] % (Auto) [place] # Seg Neutrophils % Seg Neuts % (Manual) Lymphocytes % (Manual) Seg Neutrophils # Seg Neutrophils # Man Lymphocytes # (Manual) Monocytes # (Manual) Basophils # (Manual) PT INR APTT ABG pH ABG pO2 ABG HCO3 ABG O2 Saturation ABG Base Excess ABG Hemoglobin Oxyhemoglobin Sodium Potassium Chloride Carbon Dioxide BUN Creatinine Glucose POC Glucose 115 H 112 H 130 H Lactic Acid Calcium Ionized Calcium Phosphorus Magnesium Total Bilirubin AST ALT Alkaline Phosphatase Ammonia Total Creatine Kinase CK-MB (CK-2) CK-MB (CK-2) Rel Index Total Protein Albumin Urine WBC (Auto) Salicylates Acetaminophen Plasma/Serum Alcohol Crossmatch 12/11/19 12/11/19 12/11/19 00:20 05:31 12:22 WBC RBC Hgb Hct MCH RDW Plt Count Lymph % (Auto) [place] % (Auto) [place] # Seg Neutrophils % Seg Neuts % (Manual) Lymphocytes % (Manual) Seg Neutrophils # Seg Neutrophils # Man Lymphocytes # (Manual) Monocytes # (Manual) Basophils # (Manual) PT INR APTT ABG pH ABG pO2 ABG HCO3 ABG O2 Saturation ABG Base Excess ABG Hemoglobin Oxyhemoglobin Sodium Potassium Chloride Carbon Dioxide BUN Creatinine Glucose POC Glucose 124 H 132 H 128 H Lactic Acid Calcium Ionized Calcium Phosphorus Magnesium Total Bilirubin AST ALT Alkaline Phosphatase Ammonia Total Creatine Kinase CK-MB (CK-2) CK-MB (CK-2) Rel Index Total Protein Albumin Urine WBC (Auto) Salicylates Acetaminophen Plasma/Serum Alcohol Crossmatch 12/11/19 12/11/19 12/12/19 18:04 23:42 03:51 WBC RBC Hgb Hct MCH RDW Plt Count Lymph % (Auto) [place] % (Auto) [place] # Seg Neutrophils % Seg Neuts % (Manual) Lymphocytes % (Manual) Seg Neutrophils # Seg Neutrophils # Man Lymphocytes # (Manual) Monocytes # (Manual) Basophils # (Manual) PT INR APTT ABG pH ABG pO2 ABG HCO3 ABG O2 Saturation ABG Base Excess ABG Hemoglobin Oxyhemoglobin Sodium 149 H Potassium Chloride Carbon Dioxide 20 L D BUN 77 H Creatinine 2.8 H Glucose POC Glucose 133 H 154 H Lactic Acid Calcium Ionized Calcium Phosphorus Magnesium Total Bilirubin AST ALT Alkaline Phosphatase Ammonia Total Creatine Kinase CK-MB (CK-2) CK-MB (CK-2) Rel Index Total Protein Albumin Urine WBC (Auto) Salicylates Acetaminophen Plasma/Serum Alcohol Crossmatch 12/12/19 12/12/19 12/12/19 05:18 05:26 10:30 WBC 18.0 H RBC 2.51 L Hgb 6.8 L Hct 22.0 L MCH 27 L RDW 19.9 H Plt Count 582 H Lymph % (Auto) [place] % (Auto) [place] # Seg Neutrophils % Seg Neuts % (Manual) Lymphocytes % (Manual) Seg Neutrophils # Seg Neutrophils # Man Lymphocytes # (Manual) Monocytes # (Manual) Basophils # (Manual) PT INR APTT ABG pH ABG pO2 ABG HCO3 ABG O2 Saturation ABG Base Excess ABG Hemoglobin Oxyhemoglobin Sodium Potassium Chloride Carbon Dioxide BUN Creatinine Glucose POC Glucose 135 H Lactic Acid Calcium Ionized Calcium Phosphorus Magnesium Total Bilirubin AST ALT Alkaline Phosphatase Ammonia Total Creatine Kinase CK-MB (CK-2) CK-MB (CK-2) Rel Index Total Protein Albumin Urine WBC (Auto) Salicylates Acetaminophen Plasma/Serum Alcohol Crossmatch See Detail 12/12/19 12/12/19 12/12/19 11:44 18:10 23:21 WBC RBC Hgb Hct MCH RDW Plt Count Lymph % (Auto) [place] % (Auto) [place] # Seg Neutrophils % Seg Neuts % (Manual) Lymphocytes % (Manual) Seg Neutrophils # Seg Neutrophils # Man Lymphocytes # (Manual) Monocytes # (Manual) Basophils # (Manual) PT INR APTT ABG pH ABG pO2 ABG HCO3 ABG O2 Saturation ABG Base Excess ABG Hemoglobin Oxyhemoglobin Sodium Potassium Chloride Carbon Dioxide BUN Creatinine Glucose POC Glucose 108 H 107 H 126 H Lactic Acid Calcium Ionized Calcium Phosphorus Magnesium Total Bilirubin AST ALT Alkaline Phosphatase Ammonia Total Creatine Kinase CK-MB (CK-2) CK-MB (CK-2) Rel Index Total Protein Albumin Urine WBC (Auto) Salicylates Acetaminophen Plasma/Serum Alcohol Crossmatch 12/13/19 12/13/19 12/13/19 05:41 07:48 07:48 WBC 38.3 H RBC 2.37 L Hgb 6.3 L Hct 20.9 L MCH 27 L RDW 20.2 H Plt Count 546 H Lymph % (Auto) [place] % (Auto) [place] # Seg Neutrophils % Seg Neuts % (Manual) 93.0 H Lymphocytes % (Manual) 1.0 L Seg Neutrophils # Seg Neutrophils # Man 35.6 H Lymphocytes # (Manual) 0.4 L Monocytes # (Manual) Basophils # (Manual) 0.4 H PT INR APTT ABG pH ABG pO2 ABG HCO3 ABG O2 Saturation ABG Base Excess ABG Hemoglobin Oxyhemoglobin Sodium 152 H Potassium 3.1 L D Chloride 111.9 H Carbon Dioxide 21 L BUN 53 H Creatinine 1.9 H Glucose 141 H POC Glucose 128 H Lactic Acid Calcium Ionized Calcium Phosphorus Magnesium Total Bilirubin AST ALT Alkaline Phosphatase 316 H Ammonia Total Creatine Kinase CK-MB (CK-2) CK-MB (CK-2) Rel Index Total Protein Albumin 2.4 L Urine WBC (Auto) Salicylates Acetaminophen Plasma/Serum Alcohol Crossmatch 12/13/19 12/13/19 12/14/19 18:17 23:19 05:36 WBC RBC Hgb Hct MCH RDW Plt Count Lymph % (Auto) [place] % (Auto) [place] # Seg Neutrophils % Seg Neuts % (Manual) Lymphocytes % (Manual) Seg Neutrophils # Seg Neutrophils # Man Lymphocytes # (Manual) Monocytes # (Manual) Basophils # (Manual) PT INR APTT ABG pH ABG pO2 ABG HCO3 ABG O2 Saturation ABG Base Excess ABG Hemoglobin Oxyhemoglobin Sodium Potassium Chloride Carbon Dioxide BUN Creatinine Glucose POC Glucose 141 H 158 H 182 H Lactic Acid Calcium Ionized Calcium Phosphorus Magnesium Total Bilirubin AST ALT Alkaline Phosphatase Ammonia Total Creatine Kinase CK-MB (CK-2) CK-MB (CK-2) Rel Index Total Protein Albumin Urine WBC (Auto) Salicylates Acetaminophen Plasma/Serum Alcohol Crossmatch 12/14/19 12/14/19 12/14/19 08:48 08:48 10:31 WBC 33.3 H RBC 2.70 L Hgb 7.9 L 8.0 L Hct 25.3 L 24.0 L MCH RDW 19.2 H Plt Count 476 H Lymph % (Auto) [place] % (Auto) [place] # Seg Neutrophils % Seg Neuts % (Manual) Lymphocytes % (Manual) Seg Neutrophils # Seg Neutrophils # Man Lymphocytes # (Manual) Monocytes # (Manual) Basophils # (Manual) PT INR APTT ABG pH ABG pO2 ABG HCO3 ABG O2 Saturation ABG Base Excess ABG Hemoglobin Oxyhemoglobin Sodium 153 H Potassium 2.5 L* Chloride 114.9 H Carbon Dioxide 20 L BUN 38 H Creatinine 1.4 H Glucose 177 H POC Glucose Lactic Acid Calcium Ionized Calcium Phosphorus Magnesium Total Bilirubin AST ALT Alkaline Phosphatase Ammonia Total Creatine Kinase CK-MB (CK-2) CK-MB (CK-2) Rel Index Total Protein Albumin Urine WBC (Auto) Salicylates Acetaminophen Plasma/Serum Alcohol Crossmatch 12/14/19 12/14/19 12/14/19 12:57 16:15 17:50 WBC RBC Hgb Hct MCH RDW Plt Count Lymph % (Auto) [place] % (Auto) [place] # Seg Neutrophils % Seg Neuts % (Manual) Lymphocytes % (Manual) Seg Neutrophils # Seg Neutrophils # Man Lymphocytes # (Manual) Monocytes # (Manual) Basophils # (Manual) PT INR APTT ABG pH ABG pO2 73.6 L ABG HCO3 ABG O2 Saturation ABG Base Excess ABG Hemoglobin 7.6 L Oxyhemoglobin 94.0 L Sodium Potassium Chloride Carbon Dioxide BUN Creatinine Glucose POC Glucose 174 H 150 H Lactic Acid Calcium Ionized Calcium Phosphorus Magnesium Total Bilirubin AST ALT Alkaline Phosphatase Ammonia Total Creatine Kinase CK-MB (CK-2) CK-MB (CK-2) Rel Index Total Protein Albumin Urine WBC (Auto) Salicylates Acetaminophen Plasma/Serum Alcohol Crossmatch 12/15/19 12/15/19 12/15/19 00:28 05:27 07:23 WBC 30.0 H RBC 3.11 L Hgb 8.6 L Hct 27.7 L MCH RDW 20.0 H Plt Count 473 H Lymph % (Auto) [place] % (Auto) [place] # Seg Neutrophils % Seg Neuts % (Manual) Lymphocytes % (Manual) Seg Neutrophils # Seg Neutrophils # Man Lymphocytes # (Manual) Monocytes # (Manual) Basophils # (Manual) PT INR APTT ABG pH ABG pO2 ABG HCO3 ABG O2 Saturation ABG Base Excess ABG Hemoglobin Oxyhemoglobin Sodium Potassium Chloride Carbon Dioxide BUN Creatinine Glucose POC Glucose 167 H 148 H Lactic Acid Calcium Ionized Calcium Phosphorus Magnesium Total Bilirubin AST ALT Alkaline Phosphatase Ammonia Total Creatine Kinase CK-MB (CK-2) CK-MB (CK-2) Rel Index Total Protein Albumin Urine WBC (Auto) Salicylates Acetaminophen Plasma/Serum Alcohol Crossmatch 12/15/19 12/15/19 07:23 12:21 WBC RBC Hgb Hct MCH RDW Plt Count Lymph % (Auto) [place] % (Auto) [place] # Seg Neutrophils % Seg Neuts % (Manual) Lymphocytes % (Manual) Seg Neutrophils # Seg Neutrophils # Man Lymphocytes # (Manual) Monocytes # (Manual) Basophils # (Manual) PT INR APTT ABG pH ABG pO2 ABG HCO3 ABG O2 Saturation ABG Base Excess ABG Hemoglobin Oxyhemoglobin Sodium 147 H Potassium 3.5 L D Chloride 111.2 H Carbon Dioxide 19 L BUN 29 H Creatinine Glucose 126 H POC Glucose 154 H Lactic Acid Calcium Ionized Calcium Phosphorus Magnesium Total Bilirubin AST ALT Alkaline Phosphatase Ammonia Total Creatine Kinase CK-MB (CK-2) CK-MB (CK-2) Rel Index Total Protein Albumin Urine WBC (Auto) Salicylates Acetaminophen Plasma/Serum Alcohol Crossmatch Chest x-ray: image reviewed Allied health notes reviewed: RT
[2019-12-15] MEDS: SCOPOLAMINE TRANSDERMAL PATCH 72 HR TD SCH (14:18)
[2019-12-15] MEDS: VANCOMYCIN 750 MG in SODIUM CHLORIDE 0.9% 250ML 250 ML IV SCH (21:27)
[2019-12-15] MEDS: QUEtiapine 100 MG TAB PO SCH (21:28)
[2019-12-16] MEDS: ACETAMINOPHEN 325 MG/10.15 ML ORAL LIQD UNIT DOSE FEEDTUBE PRN (04:01)
[2019-12-16] MEDS: chlordiazePOXIDE 25 MG CAP PO SCH ×3 (06:27→21:13)
[2019-12-16 06:49] LABS: Hematocrit 22.7 % (30.3-42.9); Hemoglobin 7.1 gm/dl (10.1-14.3); Mean Corpuscular HGB Conc 31 % (30-34); Mean Corpuscular Volume 88 fl (79-97); Platelet Count 451 K/mm3 (140-440); Red Blood Count 2.58 M/mm3 (3.65-5.03); Red Cell Distribution Width 19.6 % (13.2-15.2)
[2019-12-16 06:53] LABS: BUN/Creatinine Ratio 30; Blood Urea Nitrogen 27 mg/dL (7-17); Calcium 9.2 mg/dL (8.4-10.2); Hemolysis Index 6
--- NOTE | 2019-12-16 08:12 | Progress Note ---
Assessment and Plan Assessment and plan: Patient is a 54-year-old woman with a history of Hypertension, Depression, tobacco and alcohol dependency who presented to [facility] ED on 11/22/2019 due to cardiac arrest outside of the hospital. EMS found pt in PEA. Upon their arrival patient in sinus tachycardia. EMS were unable to intubate patient with a ET tube because she was clenching down therefore Joe airway placed per records. Patient received Narcan and Epinephrine. Patient's rhythm changed to PEA to sinus bradycardia, to PEA, then to sinus tach after receiving Narcan and Epinephrine. Per the ED physician who evaluated pt, Patient presented with a pulse, intermittent respirations, and bagging support via Joe airway with O2 sat of 100%. Accu-Chek of 71 obtained by EMS Status post cardiac arrest, etiology unknown Acute respiratory failure with hypoxia s/p Intubation via ETT >96 hours: Trach and PEG planned, CCM following Acute cystitis with Sepsis, not sure POA, treated with antibiotics and this completed a few days 11/29/2019 ago no growth was noted on cultures no fever. We will continue off antibiotics at this time. Seizure disorder: treat with Keppra Presumed anoxic brain injury: Neurology is following Alcohol abuse: CIWA protocol Acute metabolic encephalopathy/toxic encephalopathy due to the above BHAVANA secondary to vasomotor nephropathy: treat with IVF Hypertension: watch bp closely, prn IV antihypertensives prn Distended abdomen: treat with NGT to suction Transaminitis with Ischemic hepatitis Metabolic acidosis/alcoholic acidosis/lactic acidosis H. Influenzae, tracheobronchitis Hypernatremia: free water and monitor bmp closely Full code DVT ppx: sq heparin 12/04-: Patient failed CPAP trial became apneic according to documentation. No clinical change, continue current management, monitor H/H Awaiting labs. No new changes at this time opens eyes. Surgeon discussed trach and PEG with family but they want to get more information about hospice which they have been directed to the major case detective. Patient overnight had a episode of vomiting. Zofran started. 12/11/19: I took over patient care on day 18, Patient remains intubated, daily weaning trails. Trach and PEG planned once family consents. Mother is Anh Jesus @ [phone]. CCT 31 minutes 12/12/19: transfuse PRBC, s/p trach and PEG 12/13/19: Trach and PEG done, New fevers today, suspected Aspiration Pneumonitis vs Atelectasis; get blood cultures and empirically treat with ABX, levaquin/flagyl IV combo. Renewed restraints. ARF improved drastically as Cr went from 2.8 to 1.9 overnigh. however, WBC skyrocketed to 38.3k from 18k. Will repeat bmp and cbc, CCT 33 minutes 12/14/19: WBC improved slightly, potassium 2.5, renal function continue to impr ove. replete potassium, still febrile, re-consulted ID; give free water flushes via PEG. Dispo: aggressive wean and once off vent will have to discharge home, no insurance. 12/15/19: Still on MV Peep 6 fiO2 50%, ordered AM labs, renewed restraints. Right arm swollen, get Venous doppler-not done due to COVID-19 12/16/19: still on MV, PEEP 6 FiO2 30%, replete potassium, renewed restraints, give Tylenol of fevers (first real temp >100.4 since 12/14/19), green-culture, get CXR, UA. History Interval history: Patient was seen and examined. Follow-up on current diagnosis of Respiratory failure. Overnight uneventful as no events directly reported to me. Imaging, nursing note, chart, labs and old chart reviewed. Hospitalist Physical - Physical exam Narrative exam: Gen: critical ill, intubated, unresponsive not on sedation HEENT: ETT in place Neck: supple, no adenopathy, no thyromegaly, no JVD CVS/Heart: Regular Tachycardia, normal S1S2, pulses present bilaterally Chest/Lungs: CTA B, Symmetrical chest expansion, good air entry bilaterally GI/Abdomen: soft, NTND, good bowel sounds, no guarding or rebound MSK: right arm swollen Neuro: doesnt follow commands Psych: not responding - Constitutional Vitals: Temp Pulse Resp BP Pulse Ox 103 F H 125 H 24 119/71 95 12/16/19 03:37 12/16/19 08:00 12/16/19 08:00 12/16/19 08:00 12/16/19 08:00 General appearance: Present: no acute distress, other (on vent with sedation) Results - Labs CBC & Chem 7: 12/16/19 05:44 12/16/19 05:44 Labs: Laboratory Last Values WBC 30.8 K/mm3 (4.5-11.0) H 12/16/19 05:44 RBC 2.58 M/mm3 (3.65-5.03) L 12/16/19 05:44 Hgb 7.1 gm/dl (10.1-14.3) L 12/16/19 05:44 Hct 22.7 % (30.3-42.9) L 12/16/19 05:44 MCV 88 fl (79-97) 12/16/19 05:44 MCH 28 pg (28-32) 12/16/19 05:44 MCHC 31 % (30-34) 12/16/19 05:44 RDW 19.6 % (13.2-15.2) H 12/16/19 05:44 Plt Count 451 K/mm3 (140-440) H 12/16/19 05:44 Lymph % (Auto) 11.3 % (13.4-35.0) L 12/04/19 07:45 [place] % (Auto) 15.2 % (0.0-7.3) H 12/04/19 07:45 Eos % (Auto) 0.5 % (0.0-4.3) 12/04/19 07:45 Baso % (Auto) 0.6 % (0.0-1.8) 12/04/19 07:45 Lymph # 1.8 K/mm3 (1.2-5.4) 12/04/19 07:45 [place] # 2.4 K/mm3 (0.0-0.8) H 12/04/19 07:45 Eos # 0.1 K/mm3 (0.0-0.4) 12/04/19 07:45 Baso # 0.1 K/mm3 (0.0-0.1) 12/04/19 07:45 Add Manual Diff Complete 12/13/19 07:48 Total Counted 100 12/13/19 07:48 Seg Neutrophils % Reinsurance Analyst 12/13/19 07:48 Seg Neuts % (Manual) 93.0 % (40.0-70.0) H 12/13/19 07:48 Band Neutrophils % 3.0 % 12/13/19 07:48 Lymphocytes % (Manual) 1.0 % (13.4-35.0) L 12/13/19 07:48 Reactive Lymphs % (Man) 0 % 12/13/19 07:48 Monocytes % (Manual) 1.0 % (0.0-7.3) 12/13/19 07:48 Eosinophils % (Manual) 1.0 % (0.0-4.3) 12/13/19 07:48 Basophils % (Manual) 1.0 % (0.0-1.8) 12/13/19 07:48 Metamyelocytes % 0 % 12/13/19 07:48 Myelocytes % 0 % 12/13/19 07:48 Promyelocytes % 0 % 12/13/19 07:48 Blast Cells % 0 % 12/13/19 07:48 Nucleated RBC % Not Reportable 12/13/19 07:48 Seg Neutrophils # 11.5 K/mm3 (1.8-7.7) H 12/04/19 07:45 Seg Neutrophils # Man 35.6 K/mm3 (1.8-7.7) H 12/13/19 07:48 Band Neutrophils # 1.1 K/mm3 12/13/19 07:48 Lymphocytes # (Manual) 0.4 K/mm3 (1.2-5.4) L 12/13/19 07:48 Abs React Lymphs (Man) 0.0 K/mm3 12/13/19 07:48 Monocytes # (Manual) 0.4 K/mm3 (0.0-0.8) 12/13/19 07:48 Eosinophils # (Manual) 0.4 K/mm3 (0.0-0.4) 12/13/19 07:48 Basophils # (Manual) 0.4 K/mm3 (0.0-0.1) H 12/13/19 07:48 Metamyelocytes # 0.0 K/mm3 12/13/19 07:48 Myelocytes # 0.0 K/mm3 12/13/19 07:48 Promyelocytes # 0.0 K/mm3 12/13/19 07:48 Blast Cells # 0.0 K/mm3 12/13/19 07:48 Pathologist Review 12/13/19 07:48 WBC Morphology Not Reportable 12/01/19 08:23 Hypersegmented Neuts Not Reportable 12/13/19 07:48 Hyposegmented Neuts Not Reportable 12/13/19 07:48 Hypogranular Neuts Not Reportable 12/13/19 07:48 Smudge Cells Not Reportable 12/13/19 07:48 Toxic Granulation Not Reportable 12/13/19 07:48 Toxic Vacuolation Not Reportable 12/13/19 07:48 Dohle Bodies Not Reportable 12/13/19 07:48 Pelger-Huet Anomaly Not Reportable 12/13/19 07:48 Dominique Rods Not Reportable 12/13/19 07:48 Platelet Estimate Consistent w auto 12/13/19 07:48 Clumped Platelets Not Reportable 12/13/19 07:48 Plt Clumps, EDTA Not Reportable 12/13/19 07:48 Large Platelets Not Reportable 12/13/19 07:48 Giant Platelets Not Reportable 12/13/19 07:48 Platelet Satelliting Not Reportable 12/13/19 07:48 Plt Morphology Comment Not Reportable 12/13/19 07:48 RBC Morphology Not Reportable 12/13/19 07:48 Dimorphic RBCs Not Reportable 12/13/19 07:48 Polychromasia Not Reportable 12/13/19 07:48 Hypochromasia 1+ 12/13/19 07:48 Poikilocytosis Not Reportable 12/13/19 07:48 Anisocytosis 1+ 12/13/19 07:48 Microcytosis Not Reportable 12/13/19 07:48 Macrocytosis Few 12/13/19 07:48 Spherocytes Not Reportable 12/13/19 07:48 Pappenheimer Bodies Not Reportable 12/13/19 07:48 Sickle Cells Not Reportable 12/13/19 07:48 Target Cells Not Reportable 12/13/19 07:48 Tear Drop Cells Not Reportable 12/13/19 07:48 Ovalocytes Not Reportable 12/13/19 07:48 Helmet Cells Not Reportable 12/13/19 07:48 [place] Bodies Not Reportable 12/13/19 07:48 [place] Rings Not Reportable 12/13/19 07:48 Jamshid Cells Not Reportable 12/13/19 07:48 Bite Cells Not Reportable 12/13/19 07:48 Crenated Cell Not Reportable 12/13/19 07:48 Elliptocytes Not Reportable 12/13/19 07:48 Acanthocytes (Spur) Not Reportable 12/13/19 07:48 Rouleaux Not Reportable 12/13/19 07:48 Hemoglobin C Crystals Not Reportable 12/13/19 07:48 Schistocytes Not Reportable 12/13/19 07:48 Malaria parasites Not Reportable 12/13/19 07:48 Gregg Bodies Not Reportable 12/13/19 07:48 Hem Pathologist Commnt Sent to pathology 12/13/19 07:48 PT 17.0 Sec. (12.2-14.9) H 11/23/19 03:47 INR 1.36 (0.87-1.13) H 11/23/19 03:47 APTT 128.2 Sec. (24.2-36.6) H* 11/23/19 03:47 Heparin Anti-Xa Level 0.31 U.I./ml (0.3-0.7) 11/23/19 09:03 ABG pH 7.444 pH Units (7.350-7.450) 12/14/19 16:15 ABG pCO2 35.4 mm Hg 12/14/19 16:15 ABG pO2 73.6 mm Hg (80.0-90.0) L 12/14/19 16:15 ABG HCO3 23.7 mmol/L (20.0-26.0) 12/14/19 16:15 ABG O2 Saturation 96.3 % (95.0-99.0) 12/14/19 16:15 ABG O2 Content 10.2 (0.0-44) 12/14/19 16:15 ABG Base Excess -0.2 mmol/L (-2.0-3.0) 12/14/19 16:15 ABG Hemoglobin 7.6 gm/dl (12.0-16.0) L 12/14/19 16:15 ABG Carboxyhemoglobin 1.8 % (0.0-5.0) 12/14/19 16:15 ABG Methemoglobin 0.6 % (0.0-1.5) 12/14/19 16:15 Oxyhemoglobin 94.0 % (95.0-99.0) L 12/14/19 16:15 FiO2 30 % 12/14/19 16:15 Sodium 145 mmol/L (137-145) 12/16/19 05:44 Potassium 3.4 mmol/L (3.6-5.0) L 12/16/19 05:44 Chloride 109.2 mmol/L (98-107) H 12/16/19 05:44 Carbon Dioxide 19 mmol/L (22-30) L 12/16/19 05:44 Anion Gap 20 mmol/L 12/16/19 05:44 BUN 27 mg/dL (7-17) H 12/16/19 05:44 Creatinine 0.9 mg/dL (0.7-1.2) 12/16/19 05:44 Estimated GFR > 60 ml/min 12/16/19 05:44 BUN/Creatinine Ratio 30 % 12/16/19 05:44 Glucose 124 mg/dL (65-100) H 12/16/19 05:44 POC Glucose 126 (70-105) H 12/16/19 05:30 Lactic Acid 1.80 mmol/L (0.7-2.0) 11/25/19 05:05 Calcium 9.2 mg/dL (8.4-10.2) 12/16/19 05:44 Ionized Calcium 4.5 mg/dL (4.8-5.6) L 11/23/19 06:32 Phosphorus 4.20 mg/dL (2.5-4.5) D 11/28/19 08:59 Magnesium 2.30 mg/dL (1.7-2.3) 11/29/19 13:41 Total Bilirubin 0.40 mg/dL (0.1-1.2) 12/13/19 07:48 AST 27 units/L (5-40) 12/13/19 07:48 ALT 26 units/L (7-56) 12/13/19 07:48 Alkaline Phosphatase 316 units/L (35-129) H 12/13/19 07:48 Ammonia 42.0 umol/L (25-60) 11/29/19 13:41 Total Creatine Kinase 139 units/L (30-135) H 11/22/19 23:27 CK-MB (CK-2) 8.3 ng/mL (0.0-4.0) H 11/22/19 23:27 CK-MB (CK-2) Rel Index 5.9 (0-4) H 11/22/19 23:27 Troponin T < 0.010 ng/mL (0.00-0.029) 11/22/19 23:27 Total Protein 6.8 g/dL (6.3-8.2) 12/13/19 07:48 Albumin 2.4 g/dL (3.9-5) L 12/13/19 07:48 Albumin/Globulin Ratio 0.5 % 12/13/19 07:48 Lipase 18 units/L (13-60) 11/23/19 00:34 Procalcitonin 1.09 ng/mL (<0.15) 11/23/19 04:53 Urine Color Yellow (Yellow) 11/22/19 23:17 Urine Turbidity Cloudy (Clear) 11/22/19 23:17 Urine pH 6.0 (5.0-7.0) 11/22/19 23:17 Ur Specific [place] 1.010 (1.003-1.030) 11/22/19 23:17 Urine Protein >500 mg/dL (Negative) 11/22/19 23:17 Urine Glucose (UA) >=500 mg/dL (Negative) 11/22/19 23:17 Urine Ketones 20 mg/dL (Negative) 11/22/19 23:17 Urine Blood Mod (Negative) 11/22/19 23:17 Urine Nitrite Neg (Negative) 11/22/19 23:17 Urine Bilirubin Neg (Negative) 11/22/19 23:17 Urine Urobilinogen 4.0 mg/dL (<2.0) 11/22/19 23:17 Ur Leukocyte Esterase Neg (Negative) 11/22/19 23:17 Urine WBC (Auto) 40.0 /HPF (0.0-6.0) H 11/22/19 23:17 Urine RBC (Auto) 10.0 /HPF (0.0-6.0) 11/22/19 23:17 U Epithel Cells (Auto) 1.0 /HPF (0-13.0) 11/22/19 23:17 Urine Bacteria (Auto) 2+ /HPF (Negative) 11/22/19 23:17 Urine Mucus Few /HPF 11/22/19 23:17 Salicylates < 0.3 mg/dL (2.8-20.0) L 11/22/19 23:27 Urine Opiates Screen Presumptive negative 11/22/19 23:17 Urine Methadone Screen Presumptive negative 11/22/19 23:17 Acetaminophen < 5.0 ug/mL (10.0-30.0) L 11/22/19 23:27 Ur Barbiturates Screen Presumptive negative 11/22/19 23:17 Ur Phencyclidine Scrn Presumptive negative 11/22/19 23:17 Ur Amphetamines Screen Presumptive negative 11/22/19 23:17 U Benzodiazepines Scrn Presumptive negative 11/22/19 23:17 Urine Cocaine Screen Presumptive negative 11/22/19 23:17 U Marijuana (THC) Screen Presumptive negative 11/22/19 23:17 Drugs of Abuse Note Disclamer 11/22/19 23:17 Plasma/Serum Alcohol 0.08 % (0-0.07) H 11/22/19 23:27 Hepatitis A IgM Ab Non-reactive (NonReactive) 11/23/19 01:19 Hep Bs Antigen Non-reactive (Negative) 11/23/19 01:19 Hep B Core IgM Ab Non-reactive (NonReactive) 11/23/19 01:19 Hepatitis C Antibody Non-reactive (NonReactive) 11/23/19 01:19 Blood Type O POSITIVE 12/12/19 10:30 Antibody Screen Negative 12/12/19 10:30 Crossmatch See Detail 12/12/19 10:30 Microbiology: Microbiology 12/13/19 21:06 Peripheral/Venous Blood Culture - Preliminary NO GROWTH AFTER 48 HOURS 12/13/19 21:39 Peripheral/Venous Blood Culture - Preliminary - Diagnostic Impressions Diagnostic Impressions: Echocardiogram 11/23/19 03:58 Transthoracic Echocardiogram Indication: Cardiac arrest BP: 131/89 HR: 115 Conclusions *The study quality is technically difficult. *Global left ventricular wall motion and contractility are within normal limits. *The estimated ejection fraction is 55-60%. *Abnormal left ventricular diastolic filling is observed, consistent with impaired relaxation. *There is no pericardial effusion. Findings Procedure Info: The study quality is technically difficult. The study was technically limited due to the patient's inability to lay in the left lateral decubitus position. Left Ventricle: The left ventricular chamber size is normal. There is no left ventricular hypertrophy. Global left ventricular wall motion and contractility are within normal limits. Global left ventricular systolic function is normal. The estimated ejection fraction is 55-60%. Abnormal left ventricular diastolic filling is observed, consistent with impaired relaxation. Left Atrium: The left atrial chamber size is normal. Aortic Valve: The aortic valve leaflets are mildly thickened. Mitral Valve: The mitral valve leaflets are mildly thickened. There is no evidence of mitral regurgitation. Tricuspid Valve: The tricuspid valve leaflets are normal. There is trace tricuspid regurgitation. The right ventricular systolic pressure is calculated at 33 mmHg. Pulmonic Valve: The pulmonic valve appears normal. Pericardium: The pericardium appears normal. There is no pericardial effusion. Aorta: The aorta appears normal. Venous: The inferior vena cava appears normal in size. Measurements Chambers 2D Name Value Normal Range IVSd (2D) 0.94 cm (0.6 - 1.1) LVPWd (2D) 0.81 cm (0.6 - 1.1) LVIDd (2D) 3.6 cm (3.7 - 5.6) LVIDs (2D) 2.27 cm (2 - 3.8) LV FS (2D) 36.93 % - EF Teichholz (2D) 67.76 % - Ao root diameter (2D) 3.03 cm (2 - 3.7) Volumes/Mass Name Value Normal Range LA ESV SP 4CH (A/L) 16.89 ml - LA ESV SP 4CH (MOD) 15.52 ml - Diastolic/Systolic Function Name Value Normal Range MV E-wave Vmax 0.55 m/sec - MV deceleration time 200.89 msec - MV A-wave Vmax 0.68 m/sec - MV E:A ratio 0.82 ratio - Aortic Valve Name Value Normal Range AV Vmax 1.1 m/sec - AV VTI 15.9 cm - AV peak gradient 4.86 mmHg - AV mean gradient 2.59 mmHg - LVOT diameter 2 cm - LVOT Vmax 1.03 m/sec - LVOT VTI 15.87 cm - LVOT peak gradient 4.24 mmHg - LVOT mean gradient 2.41 mmHg - SV LVOT 49.77 ml - JOSÉ MIGUEL (continuity Vmax) 2.93 cm2 - JOSÉ MIGUEL (continuity VTI) 3.13 cm2 - Tricuspid Valve Name Value Normal Range TR Vmax 2.74 m/sec - TR peak gradient 303 mmHg - RAP 3 mmHg - RVSP 33 mmHg - IVC diameter 1.77 cm (1.2 - 2.3) Pulmonic Valve/Qp:Qs Name Value Normal Range PV Vmax 0.77 m/sec - PV peak gradient 2.4 mmHg - PV acceleration time 114.18 msec - Dela Cruz/IV: Voiding Method Indwelling Catheter IV Catheter Type [Left Forearm Peripheral IV ] IV Catheter Type [Right Peripheral IV Antecubital] IV Catheter Type [Right Hand] Peripheral IV IV Catheter Type [Right Wrist] Peripheral IV IV Catheter Type [Left Wrist] Peripheral IV IV Catheter Type [Left Peripheral IV Antecubital] IV Catheter Type [Right INT / Saline Lock Forearm] IV Catheter Type [Left Hand] Peripheral IV Active Medications - Current Medications Current Medications: Generic Name Dose Route Start Last Admin Trade Name Freq PRN Reason Stop Dose Admin Acetaminophen 650 mg 12/06/19 10:25 12/16/19 04:01 Tylenol FEEDTUBE 650 mg Q6H PRN Administration TEMP >/=100.3 Lipase/Protease/Amylase 1 each 11/23/19 11:[address] 10,500 Unit FEEDTUBE PRN PRN For Clogged Feeding Tube Chlordiazepoxide HCl 75 mg 12/14/19 16:01 12/16/19 06:27 Librium PO 75 mg Q8HR LUCHO Administration Fentanyl 25 mcg 12/04/19 17:00 12/13/19 17:42 Duragesic TD 25 mcg Q3D LUCHO Administration Fentanyl 50 mcg 12/05/19 02:10 12/12/19 20:04 Sublimaze IV 50 mcg Q10MIN PRN Administration ANALGESIA Heparin Sodium (Porcine) 5,000 unit 11/23/19 22:00 12/15/19 21:27 Heparin SUB-Q 5,000 unit Q12HR LUCHO Administration Hydralazine HCl 10 mg 11/24/19 00:45 12/13/19 05:19 Apresoline IV 10 mg Q6H PRN Administration SBP > 160 Hydrophilic Ointment 1 applic 11/22/19 23:23 Vaseline Lip Therapy TP Q2HR PRN Dry Lips Hydroxyzine Pamoate 25 mg 12/06/19 10:00 12/15/19 21:30 Vistaril PO 25 mg BID LUCHO Administration Cefepime HCl 2 gm in 100 mls @ 200 mls/hr 12/14/19 22:00 12/15/19 21:27 Cefepime/Ns 2 Gm/100 Ml IV 200 mls/hr Q12HR LUCHO Administration Protocol Vancomycin HCl 750 mg/ Sodium 265 mls @ 132.5 mls/hr 12/14/19 20:00 12/15/19 21:27 Chloride IV 132.5 mls/hr Q24H LUCHO Administration Lactulose 30 gm 12/11/19 11:00 12/15/19 21:27 Cephulac PO Not Given BID LUCHO Lansoprazole 30 mg 11/27/19 10:00 12/15/19 10:04 Prevacid Solutab FEEDTUBE 30 mg QDAY LUCHO Administration Levetiracetam 500 mg 11/29/19 10:00 12/15/19 21:27 Keppra PO 500 mg BID LUCHO Administration Lorazepam 2 mg 11/26/19 11:09 12/13/19 05:19 Ativan IV 2 mg Q4H PRN Administration Agitation Mirtazapine 30 mg 12/06/19 10:00 12/15/19 09:50 Remeron PO 30 mg DAILY LUCHO Administration Morphine Sulfate 2 mg 12/12/19 18:40 12/14/19 22:18 Morphine IV 2 mg Q4H PRN Administration Pain, Moderate (4-6) Multi-Ingred Cream/Lotion/Oil/Oint 1 applic 11/22/19 23:23 Artificial Tears Ophth Oint OU Q4HR PRN Dry Eye(s) Ondansetron HCl 4 mg 12/10/19 07:53 12/10/19 09:51 Zofran IV 4 mg Q4H PRN Administration Nausea And Vomiting Quetiapine Fumarate 300 mg 12/07/19 22:00 12/15/19 21:28 Seroquel PO 300 mg QHS LUCHO Administration Scopolamine 1 each 12/12/19 15:00 12/15/19 14:18 Transderm-Scop TD 1 each Q3D LUCHO Administration Senna/Docusate Sodium 2 tab 12/10/19 10:00 12/15/19 21:28 Senokot S PO Not Given BID LUCHO Sertraline HCl 25 mg 12/06/19 10:00 12/15/19 09:50 Zoloft PO 25 mg QDAY LUCHO Administration Simple Syrup 15 ml 11/23/19 11:50 Simple Syrup FEEDTUBE PRN PRN Hypoglycemia Simple Syrup 30 ml 11/23/19 11:50 Simple Syrup FEEDTUBE PRN PRN Hypoglycemia Sodium Bicarbonate 325 mg 11/23/19 11:50 Sodium Bicarbonate FEEDTUBE PRN PRN For Clogged Feeding Tube Tamsulosin HCl 0.4 mg 12/14/19 13:00 12/15/19 09:50 Flomax PO 0.4 mg QDAY LUCHO Administration Nutrition/Malnutrition Assess - Dietary Evaluation Nutrition/Malnutrition Findings: Nutrition Notes Start: 11/23/19 11:29 Freq: Status: Active Protocol: Document 12/15/19 08:08 LP (Rec: 12/15/19 08:09 LP [id number]) Nutrition Notes Initial or Follow up Brief Note Subjective/Other Information F/U date too far out. Nutrition Intervention Follow-Up By: 12/20/19 Additional Comments Follow for stable TF tolerance
[2019-12-16] MEDS ORDERED: POTASSIUM CHLORIDE 20 MEQ PACKET FEEDTUBE ONE (08:13)
[2019-12-16] MEDS: HEPARIN 5,000 UNIT/1 ML VIAL SUB-Q SCH ×2 (09:23→21:39)
[2019-12-16] MEDS: CEFEPIME/NS 2 GM/100 ML 2 GM/100 ML BAG IV SCH ×2 (09:23→22:17)
[2019-12-16] MEDS: MIRTAZAPINE 30 MG TAB PO SCH (09:24)
[2019-12-16] MEDS: SERTRALINE 25 MG TAB PO SCH (09:24)
[2019-12-16] MEDS: TAMSULOSIN 0.4 MG CAP PO SCH (09:24)
[2019-12-16] MEDS: LANSOPRAZOLE 30 MG SOLUTAB FEEDTUBE SCH (09:24)
[2019-12-16] MEDS: levETIRAcetam 500 MG/5 ML ORAL LIQD PO SCH ×2 (09:24→21:15)
[2019-12-16] MEDS: hydrOXYzine PAMOATE 25 MG CAP PO SCH ×2 (09:25→21:14)
[2019-12-16] MEDS: SENNOSIDES/DOCUSATE SODIUM 8.6/50 MG TAB PO SCH ×2 (09:25→22:17)
[2019-12-16] MEDS: LACTULOSE 20 GM/30 ML ORAL LIQD PO SCH ×2 (09:27→21:15)
--- NOTE | 2019-12-16 09:47 | XRay Report ---
CHEST 1 VIEW INDICATION / CLINICAL INFORMATION: fever, MV. COMPARISON: Chest radiograph 12/13/2019 FINDINGS: SUPPORT DEVICES: Stable position of tracheostomy. HEART / MEDIASTINUM: No significant abnormality. LUNGS / PLEURA: Slight interval worsening of consolidative airspace opacity in the left mid to lower lung. The right lung is clear. No large pleural effusion. No pneumothorax. ADDITIONAL FINDINGS: No significant additional findings. IMPRESSION: 1. Slight interval worsening of a consolidative opacity in the left mid to lower lung, worrisome for pneumonia in the appropriate clinical setting. Signer Name: Twyla Nava MD Signed: 12/16/2019 9:42 AM Workstation Name: [id number]
--- NOTE | 2019-12-16 11:29 | Progress Note ---
Assessment and Plan Acute cardiopulmonary arrest with ROSC Acute hypoxemic respiratory failure on MVS s/p Trachesotomy Oropharyngeal dysphagia s/p PEG Acute nwrzavojj-etnfa-nyijfe encephalopathy Metabolic acidosis/alcoholic acidosis/Lactic acidosis( resolved) Ischemic hepatitis Thrombocytosis Tobacco use disorder Alcohol use Disorder Anemia Trach care, airway clearance, secretion management Tracheal aspirate for cultures Has fevers,with leukocytosis and left lung infiltrate will start empiric antibiotics for HAP while awaiting cultures Get KUB for ongoing abdominal distension- early on during her hospitalization abdominal USS did not show any ascites Continue all critical care bundles as documented below. -Continue with MVS, Lung protective strategies, monitor airway pressures -VAP bundle addressed -Continue aspiration precautions, HOB>40 -Continue daily assessment for readiness for SBT -Continue Stress ulcer prophylaxis -Continue enteric nutritional support at goal rate. Monitor glycemic control, with target blood glucose 140-180 mg/dL while critically ill. -Avoid hypoglycemia - Continue to wean supplemental oxygen for target O2 sat's > 90% -ABG and CXR prn -Continue to trend leukocytosis -Continue to treat for hepatic encephalopathy-bowel regimen, no need to trend ammonia levels -Continue thiamine, multivitamin and electrolyte replacement -Continue to avoid nephrotoxins, adjust all medications for GFR and CrCL - Continue bronchodilators with pulmonary hygiene - Continue prn analgesia per CPOT score - Continue to maintain of sleep-wake cycle, avoid delirium - PT/OT/ROM exercises - Continue mobility protocol and skin assessment per protocol for pressure ulcer prevention - Continue to monitor for clinical seizures - continue other care per attending / other consultants CONDITION: CRITICAL PROGNOSIS: GUARDED CODE STATUS: FULL CODE The high probability of a clinically significant, sudden or life-threatening deterioration of the [respiratory, cardiovascular,GI/hepatology/Neurology] system(s) required my full and direct attention, intervention and personal management. The aggregate critical care time was [31] minutes without overlap. Time includes spent on; [x] Data Review and interpretation [x] Patient assessment and monitoring of vital signs [x] Documentation [x] Medication orders and management Subjective Date of service: 12/16/19 Principal diagnosis: Ac cardiopulmonary arrest; Ac hypoxemic resp failure; Acute encephalopathy Interval history: Patient is seen today for: Acute cardiopulmonary arrest with ROSC; Acute hypoxemic respiratory failure; Acute metabolic-toxic encephalopathy; Ischemic hepatitis; Leucocytosis with lactic acidosis; Tobacco use disorder; Alcohol use Disorder; High grade fevers Seen and examined at bedside; 24hour events reviewed; nursing and respiratory care staff consulted; no adverse overnight events reported to me; resting peacefully in bed;fevers,s/p trach to MVS, with ongoing secretions. Tube feeding on hold for possible aspiration Vitals, labs, medications, chart reviewed. Objective Vital Signs - 12hr 12/15/19 12/16/19 12/16/19 23:51 00:00 00:19 Temperature 98.4 F Pulse Rate 136 H 136 H Pulse Rate [ 136 H From Monitor] Respiratory 32 H Rate Blood Pressure 142/83 134/78 O2 Sat by Pulse 96 95 Oximetry O2 Sat by Pulse Oximetry [ Assessment] 12/16/19 12/16/19 12/16/19 01:00 02:00 03:00 Temperature Pulse Rate 136 H 136 H 138 H Pulse Rate [ From Monitor] Respiratory 28 H 30 H 32 H Rate Blood Pressure 119/68 132/78 135/79 O2 Sat by Pulse 95 96 95 Oximetry O2 Sat by Pulse Oximetry [ Assessment] 12/16/19 12/16/19 12/16/19 03:10 03:37 04:00 Temperature 103 F H Pulse Rate 140 H Pulse Rate [ 128 H From Monitor] Respiratory 31 H Rate Blood Pressure 138/80 O2 Sat by Pulse 95 Oximetry O2 Sat by Pulse 95 Oximetry [ Assessment] 12/16/19 12/16/19 12/16/19 04:10 05:00 06:00 Temperature Pulse Rate 140 H 131 H 131 H Pulse Rate [ From Monitor] Respiratory 24 27 H Rate Blood Pressure 137/79 120/68 129/80 O2 Sat by Pulse 95 96 96 Oximetry O2 Sat by Pulse Oximetry [ Assessment] 12/16/19 12/16/19 12/16/19 07:00 08:00 09:15 Temperature Pulse Rate 130 H 125 H 118 H Pulse Rate [ From Monitor] Respiratory 27 H 24 Rate Blood Pressure 136/82 119/71 O2 Sat by Pulse 96 95 96 Oximetry O2 Sat by Pulse 96 Oximetry [ Assessment] Constitutional: no acute distress, other (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, s/p trach to MVS;) Eyes: non-icteric ENT: oropharynx moist, other (s/p trach) Neck: supple, no lymphadenopathy, no JVD Effort: mildly labored Ascultation: Bilateral: diminished breath sounds, rhonchi Percussion: Bilateral: not dull Cardiovascular: regular rate and rhythm (tachycardia), other (S1,S2) Gastrointestinal: normoactive bowel sounds, soft, non-tender, non-distended, other (distended, PEG in place) Integumentary: normal Extremities: no cyanosis, no edema, pulses normal, no ischemia or petechiae Neurologic: unable to assess, other (awake but not tracking voice ) Psychiatric: other (Psychiatric: Unable to assess) CBC and BMP: 12/18/19 04:53 12/18/19 04:53 ABG, PT/INR, D-dimer: ABG ABG pH 7.444 pH Units (7.350-7.450) 12/14/19 16:15 ABG pCO2 35.4 mm Hg 12/14/19 16:15 ABG pO2 73.6 mm Hg (80.0-90.0) L 12/14/19 16:15 ABG O2 Saturation 96.3 % (95.0-99.0) 12/14/19 16:15 PT/INR, D-dimer PT 17.0 Sec. (12.2-14.9) H 11/23/19 03:47 INR 1.36 (0.87-1.13) H 11/23/19 03:47 Abnormal lab findings: Abnormal Labs 11/22/19 11/22/19 11/22/19 23:17 23:18 23:27 WBC 21.2 H RBC 3.59 L Hgb 9.8 L Hct MCH 27 L RDW 18.6 H Plt Count 454 H Lymph % (Auto) [place] % (Auto) [place] # Seg Neutrophils % Seg Neuts % (Manual) 86.0 H Lymphocytes % (Manual) 9.0 L Seg Neutrophils # Seg Neutrophils # Man 18.2 H Lymphocytes # (Manual) Monocytes # (Manual) 1.1 H Basophils # (Manual) PT INR APTT ABG pH ABG pO2 ABG HCO3 ABG O2 Saturation ABG Base Excess ABG Hemoglobin Oxyhemoglobin Sodium Potassium Chloride Carbon Dioxide BUN Creatinine Glucose POC Glucose 53 L Lactic Acid Calcium Ionized Calcium Phosphorus Magnesium Total Bilirubin AST ALT Alkaline Phosphatase Ammonia Total Creatine Kinase CK-MB (CK-2) CK-MB (CK-2) Rel Index Total Protein Albumin Urine WBC (Auto) 40.0 H Salicylates Acetaminophen Plasma/Serum Alcohol Crossmatch 0311/22/19 11/22/19 23:27 23:27 23:27 WBC RBC Hgb Hct MCH RDW Plt Count Lymph % (Auto) [place] % (Auto) [place] # Seg Neutrophils % Seg Neuts % (Manual) Lymphocytes % (Manual) Seg Neutrophils # Seg Neutrophils # Man Lymphocytes # (Manual) Monocytes # (Manual) Basophils # (Manual) PT INR APTT ABG pH ABG pO2 ABG HCO3 ABG O2 Saturation ABG Base Excess ABG Hemoglobin Oxyhemoglobin Sodium Potassium 2.4 L* Chloride 85.1 L Carbon Dioxide 19 L BUN Creatinine 0.5 L Glucose 261 H POC Glucose Lactic Acid Calcium Ionized Calcium Phosphorus Magnesium Total Bilirubin AST 609 H ALT 152 H Alkaline Phosphatase 160 H Ammonia 117.0 H Total Creatine Kinase 139 H CK-MB (CK-2) 8.3 H CK-MB (CK-2) Rel Index 5.9 H Total Protein Albumin 3.6 L Urine WBC (Auto) Salicylates < 0.3 L Acetaminophen Plasma/Serum Alcohol Crossmatch 11/22/19 11/22/19 11/23/19 23:27 23:27 01:10 WBC RBC Hgb Hct MCH RDW Plt Count Lymph % (Auto) [place] % (Auto) [place] # Seg Neutrophils % Seg Neuts % (Manual) Lymphocytes % (Manual) Seg Neutrophils # Seg Neutrophils # Man Lymphocytes # (Manual) Monocytes # (Manual) Basophils # (Manual) PT INR APTT ABG pH 7.273 L ABG pO2 209.7 H ABG HCO3 ABG O2 Saturation 99.2 H ABG Base Excess -3.9 L ABG Hemoglobin 10.6 L Oxyhemoglobin 93.9 L Sodium Potassium Chloride Carbon Dioxide BUN Creatinine Glucose POC Glucose Lactic Acid Calcium Ionized Calcium Phosphorus Magnesium Total Bilirubin AST ALT Alkaline Phosphatase Ammonia Total Creatine Kinase CK-MB (CK-2) CK-MB (CK-2) Rel Index Total Protein Albumin Urine WBC (Auto) Salicylates Acetaminophen < 5.0 L Plasma/Serum Alcohol 0.08 H Crossmatch 11/23/19 11/23/19 11/23/19 01:19 01:19 03:47 WBC RBC Hgb Hct MCH RDW Plt Count Lymph % (Auto) [place] % (Auto) [place] # Seg Neutrophils % Seg Neuts % (Manual) Lymphocytes % (Manual) Seg Neutrophils # Seg Neutrophils # Man Lymphocytes # (Manual) Monocytes # (Manual) Basophils # (Manual) PT 16.3 H INR 1.29 H APTT ABG pH ABG pO2 ABG HCO3 ABG O2 Saturation ABG Base Excess ABG Hemoglobin Oxyhemoglobin Sodium Potassium Chloride Carbon Dioxide BUN Creatinine Glucose POC Glucose Lactic Acid 2.10 H* 5.00 H* Calcium Ionized Calcium Phosphorus Magnesium Total Bilirubin AST ALT Alkaline Phosphatase Ammonia Total Creatine Kinase CK-MB (CK-2) CK-MB (CK-2) Rel Index Total Protein Albumin Urine WBC (Auto) Salicylates Acetaminophen Plasma/Serum Alcohol Crossmatch 11/23/19 11/23/19 11/23/19 03:47 03:47 04:53 WBC RBC Hgb 9.4 L Hct MCH RDW Plt Count Lymph % (Auto) [place] % (Auto) [place] # Seg Neutrophils % Seg Neuts % (Manual) Lymphocytes % (Manual) Seg Neutrophils # Seg Neutrophils # Man Lymphocytes # (Manual) Monocytes # (Manual) Basophils # (Manual) PT 17.0 H INR 1.36 H APTT 128.2 H* ABG pH ABG pO2 ABG HCO3 ABG O2 Saturation ABG Base Excess ABG Hemoglobin Oxyhemoglobin Sodium Potassium Chloride Carbon Dioxide 18 L BUN Creatinine 0.5 L Glucose 105 H POC Glucose Lactic Acid Calcium 8.3 L Ionized Calcium Phosphorus 2.40 L Magnesium Total Bilirubin 1.30 H AST 761 H ALT 158 H Alkaline Phosphatase 143 H Ammonia Total Creatine Kinase CK-MB (CK-2) CK-MB (CK-2) Rel Index Total Protein Albumin 2.8 L Urine WBC (Auto) Salicylates Acetaminophen Plasma/Serum Alcohol Crossmatch 11/23/19 11/23/19 11/23/19 05:12 06:32 06:32 WBC 16.8 H RBC 3.31 L Hgb 8.9 L Hct 28.7 L MCH 27 L RDW 18.6 H Plt Count Lymph % (Auto) [place] % (Auto) [place] # Seg Neutrophils % Seg Neuts % (Manual) 94.0 H Lymphocytes % (Manual) 1.0 L Seg Neutrophils # Seg Neutrophils # Man 15.8 H Lymphocytes # (Manual) 0.2 L Monocytes # (Manual) Basophils # (Manual) PT INR APTT ABG pH ABG pO2 ABG HCO3 ABG O2 Saturation ABG Base Excess -3.2 L ABG Hemoglobin 9.0 L Oxyhemoglobin 93.6 L Sodium Potassium Chloride Carbon Dioxide BUN Creatinine Glucose POC Glucose Lactic Acid Calcium Ionized Calcium 4.5 L Phosphorus Magnesium Total Bilirubin AST ALT Alkaline Phosphatase Ammonia Total Creatine Kinase CK-MB (CK-2) CK-MB (CK-2) Rel Index Total Protein Albumin Urine WBC (Auto) Salicylates Acetaminophen Plasma/Serum Alcohol Crossmatch 11/23/19 11/24/19 11/24/19 06:32 04:35 04:35 WBC RBC Hgb Hct MCH RDW Plt Count Lymph % (Auto) [place] % (Auto) [place] # Seg Neutrophils % Seg Neuts % (Manual) Lymphocytes % (Manual) Seg Neutrophils # Seg Neutrophils # Man Lymphocytes # (Manual) Monocytes # (Manual) Basophils # (Manual) PT INR APTT ABG pH ABG pO2 ABG HCO3 ABG O2 Saturation ABG Base Excess ABG Hemoglobin Oxyhemoglobin Sodium Potassium Chloride Carbon Dioxide BUN Creatinine Glucose POC Glucose Lactic Acid 3.30 H* Calcium Ionized Calcium Phosphorus Magnesium 1.40 L Total Bilirubin AST ALT Alkaline Phosphatase Ammonia 98.0 H Total Creatine Kinase CK-MB (CK-2) CK-MB (CK-2) Rel Index Total Protein Albumin Urine WBC (Auto) Salicylates Acetaminophen Plasma/Serum Alcohol Crossmatch 11/24/19 11/25/19 11/25/19 05:22 04:34 05:05 WBC 17.3 H RBC 2.88 L Hgb 7.8 L Hct 24.6 L MCH 27 L RDW 18.5 H Plt Count Lymph % (Auto) 7.7 L [place] % (Auto) 9.7 H [place] # 1.7 H Seg Neutrophils % 82.2 H Seg Neuts % (Manual) Lymphocytes % (Manual) Seg Neutrophils # 14.2 H Seg Neutrophils # Man Lymphocytes # (Manual) Monocytes # (Manual) Basophils # (Manual) PT INR APTT ABG pH 7.475 H ABG pO2 ABG HCO3 29.4 H 32.3 H ABG O2 Saturation ABG Base Excess 5.4 H 6.9 H ABG Hemoglobin 9.0 L 10.6 L Oxyhemoglobin 94.3 L Sodium Potassium Chloride Carbon Dioxide BUN Creatinine Glucose POC Glucose Lactic Acid Calcium Ionized Calcium Phosphorus Magnesium Total Bilirubin AST ALT Alkaline Phosphatase Ammonia Total Creatine Kinase CK-MB (CK-2) CK-MB (CK-2) Rel Index Total Protein Albumin Urine WBC (Auto) Salicylates Acetaminophen Plasma/Serum Alcohol Crossmatch 11/25/19 11/25/19 11/26/19 05:05 22:46 03:31 WBC RBC Hgb Hct MCH RDW Plt Count Lymph % (Auto) [place] % (Auto) [place] # Seg Neutrophils % Seg Neuts % (Manual) Lymphocytes % (Manual) Seg Neutrophils # Seg Neutrophils # Man Lymphocytes # (Manual) Monocytes # (Manual) Basophils # (Manual) PT INR APTT ABG pH 7.459 H ABG pO2 ABG HCO3 34.2 H ABG O2 Saturation ABG Base Excess 9.4 H ABG Hemoglobin 7.6 L Oxyhemoglobin 94.8 L Sodium 152 H D 147 H Potassium 2.3 L* D 2.8 L* D Chloride 107.8 H Carbon Dioxide 31 H D 33 H BUN Creatinine 0.6 L 0.6 L Glucose 148 H 177 H POC Glucose Lactic Acid Calcium Ionized Calcium Phosphorus Magnesium Total Bilirubin AST 105 H ALT 71 H Alkaline Phosphatase 155 H Ammonia Total Creatine Kinase CK-MB (CK-2) CK-MB (CK-2) Rel Index Total Protein 5.2 L D Albumin 2.9 L Urine WBC (Auto) Salicylates Acetaminophen Plasma/Serum Alcohol Crossmatch 11/26/19 11/26/19 11/27/19 08:24 08:24 04:20 WBC 12.0 H RBC 3.00 L Hgb 8.0 L 9.3 L Hct 25.9 L 29.7 L MCH 27 L RDW 18.5 H Plt Count Lymph % (Auto) [place] % (Auto) [place] # Seg Neutrophils % Seg Neuts % (Manual) 89.0 H Lymphocytes % (Manual) 4.0 L Seg Neutrophils # Seg Neutrophils # Man 10.7 H Lymphocytes # (Manual) 0.5 L Monocytes # (Manual) Basophils # (Manual) PT INR APTT ABG pH ABG pO2 ABG HCO3 ABG O2 Saturation ABG Base Excess ABG Hemoglobin Oxyhemoglobin Sodium 146 H Potassium 3.4 L D Chloride Carbon Dioxide BUN Creatinine 0.5 L Glucose 165 H POC Glucose Lactic Acid Calcium Ionized Calcium Phosphorus Magnesium Total Bilirubin AST 57 H ALT Alkaline Phosphatase 166 H Ammonia Total Creatine Kinase CK-MB (CK-2) CK-MB (CK-2) Rel Index Total Protein Albumin 2.9 L Urine WBC (Auto) Salicylates Acetaminophen Plasma/Serum Alcohol Crossmatch 11/27/19 11/27/19 11/27/19 04:28 04:28 04:42 WBC RBC Hgb Hct MCH RDW Plt Count Lymph % (Auto) [place] % (Auto) [place] # Seg Neutrophils % Seg Neuts % (Manual) Lymphocytes % (Manual) Seg Neutrophils # Seg Neutrophils # Man Lymphocytes # (Manual) Monocytes # (Manual) Basophils # (Manual) PT INR APTT ABG pH 7.470 H ABG pO2 74.0 L ABG HCO3 33.8 H ABG O2 Saturation ABG Base Excess 9.1 H ABG Hemoglobin 8.7 L Oxyhemoglobin 94.7 L Sodium 146 H Potassium 2.9 L* Chloride Carbon Dioxide BUN 25 H Creatinine Glucose 213 H POC Glucose Lactic Acid Calcium Ionized Calcium Phosphorus 1.00 L Magnesium Total Bilirubin AST ALT Alkaline Phosphatase Ammonia Total Creatine Kinase CK-MB (CK-2) CK-MB (CK-2) Rel Index Total Protein Albumin Urine WBC (Auto) Salicylates Acetaminophen Plasma/Serum Alcohol Crossmatch 11/27/19 11/27/19 11/27/19 05:37 12:20 15:46 WBC RBC Hgb Hct MCH RDW Plt Count Lymph % (Auto) [place] % (Auto) [place] # Seg Neutrophils % Seg Neuts % (Manual) Lymphocytes % (Manual) Seg Neutrophils # Seg Neutrophils # Man Lymphocytes # (Manual) Monocytes # (Manual) Basophils # (Manual) PT INR APTT ABG pH ABG pO2 ABG HCO3 ABG O2 Saturation ABG Base Excess ABG Hemoglobin Oxyhemoglobin Sodium 146 H Potassium 3.5 L D Chloride Carbon Dioxide BUN 24 H Creatinine 0.6 L Glucose 187 H POC Glucose 117 H 220 H Lactic Acid Calcium Ionized Calcium Phosphorus Magnesium Total Bilirubin AST ALT Alkaline Phosphatase Ammonia Total Creatine Kinase CK-MB (CK-2) CK-MB (CK-2) Rel Index Total Protein Albumin Urine WBC (Auto) Salicylates Acetaminophen Plasma/Serum Alcohol Crossmatch 11/27/19 11/28/19 11/28/19 17:28 05:00 05:02 WBC RBC Hgb Hct MCH RDW Plt Count Lymph % (Auto) [place] % (Auto) [place] # Seg Neutrophils % Seg Neuts % (Manual) Lymphocytes % (Manual) Seg Neutrophils # Seg Neutrophils # Man Lymphocytes # (Manual) Monocytes # (Manual) Basophils # (Manual) PT INR APTT ABG pH ABG pO2 72.4 L ABG HCO3 33.6 H ABG O2 Saturation 94.1 L ABG Base Excess 7.3 H ABG Hemoglobin Oxyhemoglobin 91.8 L Sodium 146 H Potassium 3.3 L Chloride Carbon Dioxide BUN 25 H Creatinine 0.6 L Glucose 176 H POC Glucose 198 H Lactic Acid Calcium Ionized Calcium Phosphorus Magnesium Total Bilirubin AST ALT Alkaline Phosphatase Ammonia Total Creatine Kinase CK-MB (CK-2) CK-MB (CK-2) Rel Index Total Protein Albumin Urine WBC (Auto) Salicylates Acetaminophen Plasma/Serum Alcohol Crossmatch 11/28/19 11/28/19 11/29/19 05:02 18:55 10:43 WBC 15.2 H 19.0 H RBC 3.06 L 3.01 L Hgb 8.3 L 8.3 L Hct 27.0 L 26.4 L MCH 27 L RDW 19.0 H 19.7 H Plt Count 479 H 611 H Lymph % (Auto) [place] % (Auto) [place] # Seg Neutrophils % Seg Neuts % (Manual) 92.0 H Lymphocytes % (Manual) 2.0 L Seg Neutrophils # Seg Neutrophils # Man 14.0 H Lymphocytes # (Manual) 0.3 L Monocytes # (Manual) Basophils # (Manual) PT INR APTT ABG pH ABG pO2 ABG HCO3 ABG O2 Saturation ABG Base Excess ABG Hemoglobin Oxyhemoglobin Sodium Potassium Chloride Carbon Dioxide BUN Creatinine Glucose POC Glucose 138 H Lactic Acid Calcium Ionized Calcium Phosphorus Magnesium Total Bilirubin AST ALT Alkaline Phosphatase Ammonia Total Creatine Kinase CK-MB (CK-2) CK-MB (CK-2) Rel Index Total Protein Albumin Urine WBC (Auto) Salicylates Acetaminophen Plasma/Serum Alcohol Crossmatch 11/29/19 11/29/19 11/29/19 10:43 12:27 19:25 WBC RBC Hgb Hct MCH RDW Plt Count Lymph % (Auto) [place] % (Auto) [place] # Seg Neutrophils % Seg Neuts % (Manual) Lymphocytes % (Manual) Seg Neutrophils # Seg Neutrophils # Man Lymphocytes # (Manual) Monocytes # (Manual) Basophils # (Manual) PT INR APTT ABG pH ABG pO2 ABG HCO3 ABG O2 Saturation ABG Base Excess ABG Hemoglobin Oxyhemoglobin Sodium Potassium 2.8 L* Chloride Carbon Dioxide BUN 20 H Creatinine 0.5 L Glucose 121 H POC Glucose 128 H 120 H Lactic Acid Calcium Ionized Calcium Phosphorus Magnesium Total Bilirubin AST ALT Alkaline Phosphatase Ammonia Total Creatine Kinase CK-MB (CK-2) CK-MB (CK-2) Rel Index Total Protein Albumin Urine WBC (Auto) Salicylates Acetaminophen Plasma/Serum Alcohol Crossmatch 11/29/19 11/30/19 11/30/19 23:46 04:10 05:02 WBC RBC Hgb Hct MCH RDW Plt Count Lymph % (Auto) [place] % (Auto) [place] # Seg Neutrophils % Seg Neuts % (Manual) Lymphocytes % (Manual) Seg Neutrophils # Seg Neutrophils # Man Lymphocytes # (Manual) Monocytes # (Manual) Basophils # (Manual) PT INR APTT ABG pH ABG pO2 76.3 L ABG HCO3 32.5 H ABG O2 Saturation ABG Base Excess 6.9 H ABG Hemoglobin 8.0 L Oxyhemoglobin 92.6 L Sodium Potassium Chloride Carbon Dioxide BUN Creatinine Glucose POC Glucose 116 H 128 H Lactic Acid Calcium Ionized Calcium Phosphorus Magnesium Total Bilirubin AST ALT Alkaline Phosphatase Ammonia Total Creatine Kinase CK-MB (CK-2) CK-MB (CK-2) Rel Index Total Protein Albumin Urine WBC (Auto) Salicylates Acetaminophen Plasma/Serum Alcohol Crossmatch 11/30/19 11/30/19 11/30/19 05:25 05:25 12:59 WBC 18.4 H RBC 3.10 L Hgb 8.5 L Hct 27.5 L MCH 27 L RDW 20.9 H Plt Count 691 H Lymph % (Auto) 7.1 L [place] % (Auto) 7.7 H [place] # 1.4 H Seg Neutrophils % 83.4 H Seg Neuts % (Manual) Lymphocytes % (Manual) Seg Neutrophils # 15.4 H Seg Neutrophils # Man Lymphocytes # (Manual) Monocytes # (Manual) Basophils # (Manual) PT INR APTT ABG pH ABG pO2 ABG HCO3 ABG O2 Saturation ABG Base Excess ABG Hemoglobin Oxyhemoglobin Sodium 146 H Potassium Chloride 107.2 H Carbon Dioxide BUN Creatinine 0.5 L Glucose 132 H POC Glucose 124 H Lactic Acid Calcium Ionized Calcium Phosphorus Magnesium Total Bilirubin AST 246 H ALT 274 H Alkaline Phosphatase 203 H Ammonia Total Creatine Kinase CK-MB (CK-2) CK-MB (CK-2) Rel Index Total Protein 5.4 L Albumin 2.9 L Urine WBC (Auto) Salicylates Acetaminophen Plasma/Serum Alcohol Crossmatch 11/30/19 12/01/19 12/01/19 17:53 00:05 05:10 WBC RBC Hgb Hct MCH RDW Plt Count Lymph % (Auto) [place] % (Auto) [place] # Seg Neutrophils % Seg Neuts % (Manual) Lymphocytes % (Manual) Seg Neutrophils # Seg Neutrophils # Man Lymphocytes # (Manual) Monocytes # (Manual) Basophils # (Manual) PT INR APTT ABG pH ABG pO2 ABG HCO3 ABG O2 Saturation ABG Base Excess ABG Hemoglobin Oxyhemoglobin Sodium Potassium Chloride Carbon Dioxide BUN Creatinine Glucose POC Glucose 113 H 143 H 145 H Lactic Acid Calcium Ionized Calcium Phosphorus Magnesium Total Bilirubin AST ALT Alkaline Phosphatase Ammonia Total Creatine Kinase CK-MB (CK-2) CK-MB (CK-2) Rel Index Total Protein Albumin Urine WBC (Auto) Salicylates Acetaminophen Plasma/Serum Alcohol Crossmatch 12/01/19 12/01/19 12/01/19 05:33 08:23 08:23 WBC 22.7 H RBC 2.88 L Hgb 7.9 L Hct 25.2 L MCH 27 L RDW 21.0 H Plt Count 732 H Lymph % (Auto) [place] % (Auto) [place] # Seg Neutrophils % Seg Neuts % (Manual) 91.0 H Lymphocytes % (Manual) 3.0 L Seg Neutrophils # Seg Neutrophils # Man 20.7 H Lymphocytes # (Manual) 0.7 L Monocytes # (Manual) 1.1 H Basophils # (Manual) PT INR APTT ABG pH ABG pO2 68.6 L ABG HCO3 34.1 H ABG O2 Saturation ABG Base Excess 9.0 H ABG Hemoglobin 6.5 L Oxyhemoglobin 94.7 L Sodium Potassium Chloride Carbon Dioxide BUN Creatinine 0.5 L Glucose 125 H POC Glucose Lactic Acid Calcium Ionized Calcium Phosphorus Magnesium Total Bilirubin AST ALT Alkaline Phosphatase Ammonia Total Creatine Kinase CK-MB (CK-2) CK-MB (CK-2) Rel Index Total Protein Albumin Urine WBC (Auto) Salicylates Acetaminophen Plasma/Serum Alcohol Crossmatch 12/01/19 12/01/19 12/01/19 13:21 17:54 20:59 WBC RBC Hgb Hct MCH RDW Plt Count Lymph % (Auto) [place] % (Auto) [place] # Seg Neutrophils % Seg Neuts % (Manual) Lymphocytes % (Manual) Seg Neutrophils # Seg Neutrophils # Man Lymphocytes # (Manual) Monocytes # (Manual) Basophils # (Manual) PT INR APTT ABG pH ABG pO2 78.3 L ABG HCO3 33.8 H ABG O2 Saturation 94.9 L ABG Base Excess 7.9 H ABG Hemoglobin 11.5 L Oxyhemoglobin 92.3 L Sodium Potassium Chloride Carbon Dioxide BUN Creatinine Glucose POC Glucose 111 H 115 H Lactic Acid Calcium Ionized Calcium Phosphorus Magnesium Total Bilirubin AST ALT Alkaline Phosphatase Ammonia Total Creatine Kinase CK-MB (CK-2) CK-MB (CK-2) Rel Index Total Protein Albumin Urine WBC (Auto) Salicylates Acetaminophen Plasma/Serum Alcohol Crossmatch 12/02/19 12/03/19 12/04/19 12:55 20:00 04:26 WBC 15.2 H RBC 2.69 L Hgb 7.4 L Hct 23.6 L MCH 27 L RDW 19.9 H Plt Count 838 H Lymph % (Auto) [place] % (Auto) [place] # Seg Neutrophils % Seg Neuts % (Manual) Lymphocytes % (Manual) Seg Neutrophils # Seg Neutrophils # Man Lymphocytes # (Manual) Monocytes # (Manual) Basophils # (Manual) PT INR APTT ABG pH ABG pO2 68.3 L ABG HCO3 33.5 H ABG O2 Saturation 93.5 L ABG Base Excess 8.4 H ABG Hemoglobin 7.3 L Oxyhemoglobin 90.9 L Sodium Potassium Chloride Carbon Dioxide BUN Creatinine Glucose POC Glucose 107 H Lactic Acid Calcium Ionized Calcium Phosphorus Magnesium Total Bilirubin AST ALT Alkaline Phosphatase Ammonia Total Creatine Kinase CK-MB (CK-2) CK-MB (CK-2) Rel Index Total Protein Albumin Urine WBC (Auto) Salicylates Acetaminophen Plasma/Serum Alcohol Crossmatch 12/04/19 12/04/19 12/04/19 04:26 07:45 12:02 WBC 15.9 H RBC 2.88 L Hgb 7.9 L Hct 25.1 L MCH RDW 20.4 H Plt Count 839 H Lymph % (Auto) 11.3 L [place] % (Auto) 15.2 H [place] # 2.4 H Seg Neutrophils % 72.4 H Seg Neuts % (Manual) Lymphocytes % (Manual) Seg Neutrophils # 11.5 H Seg Neutrophils # Man Lymphocytes # (Manual) Monocytes # (Manual) Basophils # (Manual) PT INR APTT ABG pH ABG pO2 ABG HCO3 ABG O2 Saturation ABG Base Excess ABG Hemoglobin Oxyhemoglobin Sodium Potassium Chloride 96.5 L Carbon Dioxide BUN 21 H Creatinine 0.6 L Glucose 107 H POC Glucose 138 H Lactic Acid Calcium Ionized Calcium Phosphorus Magnesium Total Bilirubin AST ALT Alkaline Phosphatase Ammonia Total Creatine Kinase CK-MB (CK-2) CK-MB (CK-2) Rel Index Total Protein Albumin Urine WBC (Auto) Salicylates Acetaminophen Plasma/Serum Alcohol Crossmatch 12/04/19 12/05/19 12/05/19 18:16 11:55 18:36 WBC RBC Hgb Hct MCH RDW Plt Count Lymph % (Auto) [place] % (Auto) [place] # Seg Neutrophils % Seg Neuts % (Manual) Lymphocytes % (Manual) Seg Neutrophils # Seg Neutrophils # Man Lymphocytes # (Manual) Monocytes # (Manual) Basophils # (Manual) PT INR APTT ABG pH ABG pO2 ABG HCO3 ABG O2 Saturation ABG Base Excess ABG Hemoglobin Oxyhemoglobin Sodium Potassium Chloride Carbon Dioxide BUN Creatinine Glucose POC Glucose 135 H 125 H 135 H Lactic Acid Calcium Ionized Calcium Phosphorus Magnesium Total Bilirubin AST ALT Alkaline Phosphatase Ammonia Total Creatine Kinase CK-MB (CK-2) CK-MB (CK-2) Rel Index Total Protein Albumin Urine WBC (Auto) Salicylates Acetaminophen Plasma/Serum Alcohol Crossmatch 12/05/19 12/06/19 12/06/19 23:30 04:14 05:43 WBC RBC Hgb Hct MCH RDW Plt Count Lymph % (Auto) [place] % (Auto) [place] # Seg Neutrophils % Seg Neuts % (Manual) Lymphocytes % (Manual) Seg Neutrophils # Seg Neutrophils # Man Lymphocytes # (Manual) Monocytes # (Manual) Basophils # (Manual) PT INR APTT ABG pH ABG pO2 ABG HCO3 ABG O2 Saturation ABG Base Excess ABG Hemoglobin Oxyhemoglobin Sodium Potassium 5.6 H Chloride 95.0 L Carbon Dioxide BUN 48 H Creatinine 1.3 H D Glucose POC Glucose 126 H 121 H Lactic Acid Calcium Ionized Calcium Phosphorus Magnesium Total Bilirubin AST 89 H ALT 98 H Alkaline Phosphatase 476 H Ammonia Total Creatine Kinase CK-MB (CK-2) CK-MB (CK-2) Rel Index Total Protein Albumin 2.8 L Urine WBC (Auto) Salicylates Acetaminophen Plasma/Serum Alcohol Crossmatch 12/06/19 12/06/19 12/07/19 10:39 14:34 00:19 WBC 17.3 H RBC 2.60 L Hgb 7.1 L Hct 22.7 L MCH 27 L RDW 20.1 H Plt Count 832 H Lymph % (Auto) [place] % (Auto) [place] # Seg Neutrophils % Seg Neuts % (Manual) Lymphocytes % (Manual) Seg Neutrophils # Seg Neutrophils # Man Lymphocytes # (Manual) Monocytes # (Manual) Basophils # (Manual) PT INR APTT ABG pH ABG pO2 ABG HCO3 ABG O2 Saturation ABG Base Excess ABG Hemoglobin Oxyhemoglobin Sodium Potassium Chloride Carbon Dioxide BUN Creatinine Glucose POC Glucose 128 H 136 H Lactic Acid Calcium Ionized Calcium Phosphorus Magnesium Total Bilirubin AST ALT Alkaline Phosphatase Ammonia Total Creatine Kinase CK-MB (CK-2) CK-MB (CK-2) Rel Index Total Protein Albumin Urine WBC (Auto) Salicylates Acetaminophen Plasma/Serum Alcohol Crossmatch 12/07/19 12/07/19 12/07/19 03:44 03:44 05:53 WBC 16.2 H RBC 2.56 L Hgb 7.1 L Hct 22.3 L MCH RDW 19.4 H Plt Count 782 H Lymph % (Auto) [place] % (Auto) [place] # Seg Neutrophils % Seg Neuts % (Manual) Lymphocytes % (Manual) Seg Neutrophils # Seg Neutrophils # Man Lymphocytes # (Manual) Monocytes # (Manual) Basophils # (Manual) PT INR APTT ABG pH ABG pO2 ABG HCO3 ABG O2 Saturation ABG Base Excess ABG Hemoglobin Oxyhemoglobin Sodium Potassium Chloride 95.6 L Carbon Dioxide BUN 56 H Creatinine 1.4 H Glucose 120 H POC Glucose 128 H Lactic Acid Calcium 10.3 H Ionized Calcium Phosphorus Magnesium Total Bilirubin AST ALT Alkaline Phosphatase Ammonia Total Creatine Kinase CK-MB (CK-2) CK-MB (CK-2) Rel Index Total Protein Albumin Urine WBC (Auto) Salicylates Acetaminophen Plasma/Serum Alcohol Crossmatch 12/07/19 12/07/19 12/08/19 12:54 23:47 00:20 WBC RBC Hgb Hct MCH RDW Plt Count Lymph % (Auto) [place] % (Auto) [place] # Seg Neutrophils % Seg Neuts % (Manual) Lymphocytes % (Manual) Seg Neutrophils # Seg Neutrophils # Man Lymphocytes # (Manual) Monocytes # (Manual) Basophils # (Manual) PT INR APTT ABG pH ABG pO2 ABG HCO3 ABG O2 Saturation ABG Base Excess ABG Hemoglobin Oxyhemoglobin Sodium Potassium Chloride Carbon Dioxide BUN Creatinine Glucose POC Glucose 128 H 130 H 124 H Lactic Acid Calcium Ionized Calcium Phosphorus Magnesium Total Bilirubin AST ALT Alkaline Phosphatase Ammonia Total Creatine Kinase CK-MB (CK-2) CK-MB (CK-2) Rel Index Total Protein Albumin Urine WBC (Auto) Salicylates Acetaminophen Plasma/Serum Alcohol Crossmatch 12/08/19 12/08/19 12/08/19 06:38 12:04 18:26 WBC RBC Hgb Hct MCH RDW Plt Count Lymph % (Auto) [place] % (Auto) [place] # Seg Neutrophils % Seg Neuts % (Manual) Lymphocytes % (Manual) Seg Neutrophils # Seg Neutrophils # Man Lymphocytes # (Manual) Monocytes # (Manual) Basophils # (Manual) PT INR APTT ABG pH ABG pO2 ABG HCO3 ABG O2 Saturation ABG Base Excess ABG Hemoglobin Oxyhemoglobin Sodium Potassium Chloride Carbon Dioxide BUN Creatinine Glucose POC Glucose 137 H 129 H 150 H Lactic Acid Calcium Ionized Calcium Phosphorus Magnesium Total Bilirubin AST ALT Alkaline Phosphatase Ammonia Total Creatine Kinase CK-MB (CK-2) CK-MB (CK-2) Rel Index Total Protein Albumin Urine WBC (Auto) Salicylates Acetaminophen Plasma/Serum Alcohol Crossmatch 12/09/19 12/09/19 12/09/19 00:56 05:34 06:13 WBC RBC Hgb Hct MCH RDW Plt Count Lymph % (Auto) [place] % (Auto) [place] # Seg Neutrophils % Seg Neuts % (Manual) Lymphocytes % (Manual) Seg Neutrophils # Seg Neutrophils # Man Lymphocytes # (Manual) Monocytes # (Manual) Basophils # (Manual) PT INR APTT ABG pH ABG pO2 ABG HCO3 ABG O2 Saturation ABG Base Excess ABG Hemoglobin Oxyhemoglobin Sodium 146 H Potassium Chloride Carbon Dioxide BUN 66 H Creatinine 1.9 H Glucose 116 H POC Glucose 130 H 130 H Lactic Acid Calcium Ionized Calcium Phosphorus Magnesium Total Bilirubin AST ALT Alkaline Phosphatase Ammonia Total Creatine Kinase CK-MB (CK-2) CK-MB (CK-2) Rel Index Total Protein Albumin Urine WBC (Auto) Salicylates Acetaminophen Plasma/Serum Alcohol Crossmatch 12/09/19 12/09/19 12/10/19 11:52 17:50 00:14 WBC RBC Hgb Hct MCH RDW Plt Count Lymph % (Auto) [place] % (Auto) [place] # Seg Neutrophils % Seg Neuts % (Manual) Lymphocytes % (Manual) Seg Neutrophils # Seg Neutrophils # Man Lymphocytes # (Manual) Monocytes # (Manual) Basophils # (Manual) PT INR APTT ABG pH ABG pO2 ABG HCO3 ABG O2 Saturation ABG Base Excess ABG Hemoglobin Oxyhemoglobin Sodium Potassium Chloride Carbon Dioxide BUN Creatinine Glucose POC Glucose 135 H 120 H 116 H Lactic Acid Calcium Ionized Calcium Phosphorus Magnesium Total Bilirubin AST ALT Alkaline Phosphatase Ammonia Total Creatine Kinase CK-MB (CK-2) CK-MB (CK-2) Rel Index Total Protein Albumin Urine WBC (Auto) Salicylates Acetaminophen Plasma/Serum Alcohol Crossmatch 12/10/19 12/10/19 12/10/19 05:38 11:38 17:34 WBC RBC Hgb Hct MCH RDW Plt Count Lymph % (Auto) [place] % (Auto) [place] # Seg Neutrophils % Seg Neuts % (Manual) Lymphocytes % (Manual) Seg Neutrophils # Seg Neutrophils # Man Lymphocytes # (Manual) Monocytes # (Manual) Basophils # (Manual) PT INR APTT ABG pH ABG pO2 ABG HCO3 ABG O2 Saturation ABG Base Excess ABG Hemoglobin Oxyhemoglobin Sodium Potassium Chloride Carbon Dioxide BUN Creatinine Glucose POC Glucose 115 H 112 H 130 H Lactic Acid Calcium Ionized Calcium Phosphorus Magnesium Total Bilirubin AST ALT Alkaline Phosphatase Ammonia Total Creatine Kinase CK-MB (CK-2) CK-MB (CK-2) Rel Index Total Protein Albumin Urine WBC (Auto) Salicylates Acetaminophen Plasma/Serum Alcohol Crossmatch 12/11/19 12/11/19 12/11/19 00:20 05:31 12:22 WBC RBC Hgb Hct MCH RDW Plt Count Lymph % (Auto) [place] % (Auto) [place] # Seg Neutrophils % Seg Neuts % (Manual) Lymphocytes % (Manual) Seg Neutrophils # Seg Neutrophils # Man Lymphocytes # (Manual) Monocytes # (Manual) Basophils # (Manual) PT INR APTT ABG pH ABG pO2 ABG HCO3 ABG O2 Saturation ABG Base Excess ABG Hemoglobin Oxyhemoglobin Sodium Potassium Chloride Carbon Dioxide BUN Creatinine Glucose POC Glucose 124 H 132 H 128 H Lactic Acid Calcium Ionized Calcium Phosphorus Magnesium Total Bilirubin AST ALT Alkaline Phosphatase Ammonia Total Creatine Kinase CK-MB (CK-2) CK-MB (CK-2) Rel Index Total Protein Albumin Urine WBC (Auto) Salicylates Acetaminophen Plasma/Serum Alcohol Crossmatch 12/11/19 12/11/19 12/12/19 18:04 23:42 03:51 WBC RBC Hgb Hct MCH RDW Plt Count Lymph % (Auto) [place] % (Auto) [place] # Seg Neutrophils % Seg Neuts % (Manual) Lymphocytes % (Manual) Seg Neutrophils # Seg Neutrophils # Man Lymphocytes # (Manual) Monocytes # (Manual) Basophils # (Manual) PT INR APTT ABG pH ABG pO2 ABG HCO3 ABG O2 Saturation ABG Base Excess ABG Hemoglobin Oxyhemoglobin Sodium 149 H Potassium Chloride Carbon Dioxide 20 L D BUN 77 H Creatinine 2.8 H Glucose POC Glucose 133 H 154 H Lactic Acid Calcium Ionized Calcium Phosphorus Magnesium Total Bilirubin AST ALT Alkaline Phosphatase Ammonia Total Creatine Kinase CK-MB (CK-2) CK-MB (CK-2) Rel Index Total Protein Albumin Urine WBC (Auto) Salicylates Acetaminophen Plasma/Serum Alcohol Crossmatch 12/12/19 12/12/19 12/12/19 05:18 05:26 10:30 WBC 18.0 H RBC 2.51 L Hgb 6.8 L Hct 22.0 L MCH 27 L RDW 19.9 H Plt Count 582 H Lymph % (Auto) [place] % (Auto) [place] # Seg Neutrophils % Seg Neuts % (Manual) Lymphocytes % (Manual) Seg Neutrophils # Seg Neutrophils # Man Lymphocytes # (Manual) Monocytes # (Manual) Basophils # (Manual) PT INR APTT ABG pH ABG pO2 ABG HCO3 ABG O2 Saturation ABG Base Excess ABG Hemoglobin Oxyhemoglobin Sodium Potassium Chloride Carbon Dioxide BUN Creatinine Glucose POC Glucose 135 H Lactic Acid Calcium Ionized Calcium Phosphorus Magnesium Total Bilirubin AST ALT Alkaline Phosphatase Ammonia Total Creatine Kinase CK-MB (CK-2) CK-MB (CK-2) Rel Index Total Protein Albumin Urine WBC (Auto) Salicylates Acetaminophen Plasma/Serum Alcohol Crossmatch See Detail 12/12/19 12/12/19 12/12/19 11:44 18:10 23:21 WBC RBC Hgb Hct MCH RDW Plt Count Lymph % (Auto) [place] % (Auto) [place] # Seg Neutrophils % Seg Neuts % (Manual) Lymphocytes % (Manual) Seg Neutrophils # Seg Neutrophils # Man Lymphocytes # (Manual) Monocytes # (Manual) Basophils # (Manual) PT INR APTT ABG pH ABG pO2 ABG HCO3 ABG O2 Saturation ABG Base Excess ABG Hemoglobin Oxyhemoglobin Sodium Potassium Chloride Carbon Dioxide BUN Creatinine Glucose POC Glucose 108 H 107 H 126 H Lactic Acid Calcium Ionized Calcium Phosphorus Magnesium Total Bilirubin AST ALT Alkaline Phosphatase Ammonia Total Creatine Kinase CK-MB (CK-2) CK-MB (CK-2) Rel Index Total Protein Albumin Urine WBC (Auto) Salicylates Acetaminophen Plasma/Serum Alcohol Crossmatch 12/13/19 12/13/19 12/13/19 05:41 07:48 07:48 WBC 38.3 H RBC 2.37 L Hgb 6.3 L Hct 20.9 L MCH 27 L RDW 20.2 H Plt Count 546 H Lymph % (Auto) [place] % (Auto) [place] # Seg Neutrophils % Seg Neuts % (Manual) 93.0 H Lymphocytes % (Manual) 1.0 L Seg Neutrophils # Seg Neutrophils # Man 35.6 H Lymphocytes # (Manual) 0.4 L Monocytes # (Manual) Basophils # (Manual) 0.4 H PT INR APTT ABG pH ABG pO2 ABG HCO3 ABG O2 Saturation ABG Base Excess ABG Hemoglobin Oxyhemoglobin Sodium 152 H Potassium 3.1 L D Chloride 111.9 H Carbon Dioxide 21 L BUN 53 H Creatinine 1.9 H Glucose 141 H POC Glucose 128 H Lactic Acid Calcium Ionized Calcium Phosphorus Magnesium Total Bilirubin AST ALT Alkaline Phosphatase 316 H Ammonia Total Creatine Kinase CK-MB (CK-2) CK-MB (CK-2) Rel Index Total Protein Albumin 2.4 L Urine WBC (Auto) Salicylates Acetaminophen Plasma/Serum Alcohol Crossmatch 12/13/19 12/13/19 12/14/19 18:17 23:19 05:36 WBC RBC Hgb Hct MCH RDW Plt Count Lymph % (Auto) [place] % (Auto) [place] # Seg Neutrophils % Seg Neuts % (Manual) Lymphocytes % (Manual) Seg Neutrophils # Seg Neutrophils # Man Lymphocytes # (Manual) Monocytes # (Manual) Basophils # (Manual) PT INR APTT ABG pH ABG pO2 ABG HCO3 ABG O2 Saturation ABG Base Excess ABG Hemoglobin Oxyhemoglobin Sodium Potassium Chloride Carbon Dioxide BUN Creatinine Glucose POC Glucose 141 H 158 H 182 H Lactic Acid Calcium Ionized Calcium Phosphorus Magnesium Total Bilirubin AST ALT Alkaline Phosphatase Ammonia Total Creatine Kinase CK-MB (CK-2) CK-MB (CK-2) Rel Index Total Protein Albumin Urine WBC (Auto) Salicylates Acetaminophen Plasma/Serum Alcohol Crossmatch 12/14/19 12/14/19 12/14/19 08:48 08:48 10:31 WBC 33.3 H RBC 2.70 L Hgb 7.9 L 8.0 L Hct 25.3 L 24.0 L MCH RDW 19.2 H Plt Count 476 H Lymph % (Auto) [place] % (Auto) [place] # Seg Neutrophils % Seg Neuts % (Manual) Lymphocytes % (Manual) Seg Neutrophils # Seg Neutrophils # Man Lymphocytes # (Manual) Monocytes # (Manual) Basophils # (Manual) PT INR APTT ABG pH ABG pO2 ABG HCO3 ABG O2 Saturation ABG Base Excess ABG Hemoglobin Oxyhemoglobin Sodium 153 H Potassium 2.5 L* Chloride 114.9 H Carbon Dioxide 20 L BUN 38 H Creatinine 1.4 H Glucose 177 H POC Glucose Lactic Acid Calcium Ionized Calcium Phosphorus Magnesium Total Bilirubin AST ALT Alkaline Phosphatase Ammonia Total Creatine Kinase CK-MB (CK-2) CK-MB (CK-2) Rel Index Total Protein Albumin Urine WBC (Auto) Salicylates Acetaminophen Plasma/Serum Alcohol Crossmatch 12/14/19 12/14/19 12/14/19 12:57 16:15 17:50 WBC RBC Hgb Hct MCH RDW Plt Count Lymph % (Auto) [place] % (Auto) [place] # Seg Neutrophils % Seg Neuts % (Manual) Lymphocytes % (Manual) Seg Neutrophils # Seg Neutrophils # Man Lymphocytes # (Manual) Monocytes # (Manual) Basophils # (Manual) PT INR APTT ABG pH ABG pO2 73.6 L ABG HCO3 ABG O2 Saturation ABG Base Excess ABG Hemoglobin 7.6 L Oxyhemoglobin 94.0 L Sodium Potassium Chloride Carbon Dioxide BUN Creatinine Glucose POC Glucose 174 H 150 H Lactic Acid Calcium Ionized Calcium Phosphorus Magnesium Total Bilirubin AST ALT Alkaline Phosphatase Ammonia Total Creatine Kinase CK-MB (CK-2) CK-MB (CK-2) Rel Index Total Protein Albumin Urine WBC (Auto) Salicylates Acetaminophen Plasma/Serum Alcohol Crossmatch 12/15/19 12/15/19 12/15/19 00:28 05:27 07:23 WBC 30.0 H RBC 3.11 L Hgb 8.6 L Hct 27.7 L MCH RDW 20.0 H Plt Count 473 H Lymph % (Auto) [place] % (Auto) [place] # Seg Neutrophils % Seg Neuts % (Manual) Lymphocytes % (Manual) Seg Neutrophils # Seg Neutrophils # Man Lymphocytes # (Manual) Monocytes # (Manual) Basophils # (Manual) PT INR APTT ABG pH ABG pO2 ABG HCO3 ABG O2 Saturation ABG Base Excess ABG Hemoglobin Oxyhemoglobin Sodium Potassium Chloride Carbon Dioxide BUN Creatinine Glucose POC Glucose 167 H 148 H Lactic Acid Calcium Ionized Calcium Phosphorus Magnesium Total Bilirubin AST ALT Alkaline Phosphatase Ammonia Total Creatine Kinase CK-MB (CK-2) CK-MB (CK-2) Rel Index Total Protein Albumin Urine WBC (Auto) Salicylates Acetaminophen Plasma/Serum Alcohol Crossmatch 12/15/19 12/15/19 12/15/19 07:23 12:21 17:41 WBC RBC Hgb Hct MCH RDW Plt Count Lymph % (Auto) [place] % (Auto) [place] # Seg Neutrophils % Seg Neuts % (Manual) Lymphocytes % (Manual) Seg Neutrophils # Seg Neutrophils # Man Lymphocytes # (Manual) Monocytes # (Manual) Basophils # (Manual) PT INR APTT ABG pH ABG pO2 ABG HCO3 ABG O2 Saturation ABG Base Excess ABG Hemoglobin Oxyhemoglobin Sodium 147 H Potassium 3.5 L D Chloride 111.2 H Carbon Dioxide 19 L BUN 29 H Creatinine Glucose 126 H POC Glucose 154 H 144 H Lactic Acid Calcium Ionized Calcium Phosphorus Magnesium Total Bilirubin AST ALT Alkaline Phosphatase Ammonia Total Creatine Kinase CK-MB (CK-2) CK-MB (CK-2) Rel Index Total Protein Albumin Urine WBC (Auto) Salicylates Acetaminophen Plasma/Serum Alcohol Crossmatch 12/16/19 12/16/19 12/16/19 00:22 05:30 05:44 WBC 30.8 H RBC 2.58 L Hgb 7.1 L Hct 22.7 L MCH RDW 19.6 H Plt Count 451 H Lymph % (Auto) [place] % (Auto) [place] # Seg Neutrophils % Seg Neuts % (Manual) Lymphocytes % (Manual) Seg Neutrophils # Seg Neutrophils # Man Lymphocytes # (Manual) Monocytes # (Manual) Basophils # (Manual) PT INR APTT ABG pH ABG pO2 ABG HCO3 ABG O2 Saturation ABG Base Excess ABG Hemoglobin Oxyhemoglobin Sodium Potassium Chloride Carbon Dioxide BUN Creatinine Glucose POC Glucose 139 H 126 H Lactic Acid Calcium Ionized Calcium Phosphorus Magnesium Total Bilirubin AST ALT Alkaline Phosphatase Ammonia Total Creatine Kinase CK-MB (CK-2) CK-MB (CK-2) Rel Index Total Protein Albumin Urine WBC (Auto) Salicylates Acetaminophen Plasma/Serum Alcohol Crossmatch 12/16/19 05:44 WBC RBC Hgb Hct MCH RDW Plt Count Lymph % (Auto) [place] % (Auto) [place] # Seg Neutrophils % Seg Neuts % (Manual) Lymphocytes % (Manual) Seg Neutrophils # Seg Neutrophils # Man Lymphocytes # (Manual) Monocytes # (Manual) Basophils # (Manual) PT INR APTT ABG pH ABG pO2 ABG HCO3 ABG O2 Saturation ABG Base Excess ABG Hemoglobin Oxyhemoglobin Sodium Potassium 3.4 L Chloride 109.2 H Carbon Dioxide 19 L BUN 27 H Creatinine Glucose 124 H POC Glucose Lactic Acid Calcium Ionized Calcium Phosphorus Magnesium Total Bilirubin AST ALT Alkaline Phosphatase Ammonia Total Creatine Kinase CK-MB (CK-2) CK-MB (CK-2) Rel Index Total Protein Albumin Urine WBC (Auto) Salicylates Acetaminophen Plasma/Serum Alcohol Crossmatch Chest x-ray: image reviewed (Left lung infiltrate) Allied health notes reviewed: nursing
--- NOTE | 2019-12-16 13:23 | Progress Note ---
Assessment and Plan Cultures: 11/22/2019 urine culture:no significant growth 11/22/2019 tracheal aspirate culture: H. influenzae 12/13/2019 blood culture: GPC 1 of 4 12/13/2019 sptum pending A/P: 54-year-old female with hypertension, depression, tobacco use, alcohol abuse was brought into the emergency room on 11/22/2019 after she went into respiratory arrest at home requiring CPR by EMS: #Sepsis: remains with fever 103. Source could be UTI versus pneumonitis versus SBP. UA showed pyuria. RUQ US showed no ascites. Completed 7 days of Ceftriaxone on 11/29/2019. Blood cx with GPC 1 of 4 ? contaminant #LLL pneumonia # acute respiratory failure: Possibly aspiration. No pneumonia seen. On mechanical ventilation. #Elevated LFTs, alcohol abuse, status post arrest requiring CPR: Trend LFTs. RUQ US showed no ascites. #Acute encephalopathy: Likely multifactorial from alcohol abuse, status post arrest, electrolyte abnormalities. #Diarrhea: likely combination of tube feeds and lactulose. now with BMS Recs: Continue empiric vancomycin and renally dosed cefepime. Follow up blood cultures. repeat blood cx monitor fever Will follow Janice Haque MD Infectious Diseases [employer] [facility] ([facility] M [phone] O [phone] Subjective Date of service: 12/16/19 Principal diagnosis: Ac cardiopulmonary arrest; Ac hypoxemic resp failure; Acute encephalopathy Objective - Exam Narrative Exam: Gen: Cardiovascular: S1, S2 normal Respiratory: Good air entry, clear to auscultation bilaterally GI: slightly distended, bowel sounds present. Rectal tube present with liquid stool Musculoskeletal: No pedal edema, no cyanosis. Skin: No rash or abscess Hem/Lymphatic: No palpable cervical or supraclavicular nodes. No lymphangitis Psych: no agitation. Neurological: comatose - Constitutional Vitals: Vital Signs Temp Pulse Resp BP Pulse Ox 100 F H 122 H 26 H 125/78 97 12/16/19 12:00 12/16/19 13:00 12/16/19 13:00 12/16/19 13:00 12/16/19 13:00 Temperature -Last 24 Hours Temperature 100 F Temperature 99.9 F Temperature 103 F Temperature 98.4 F Temperature 98.6 F Temperature 98.8 F - Labs CBC & Chem 7: 12/16/19 05:44 12/16/19 05:44 Labs: Abnormal lab results 12/15/19 12/16/19 12/16/19 Range/Units 17:41 00:22 05:30 WBC (4.5-11.0) K/mm3 RBC (3.65-5.03) M/mm3 Hgb (10.1-14.3) gm/dl Hct (30.3-42.9) % RDW (13.2-15.2) % Plt Count (140-440) K/mm3 Potassium (3.6-5.0) mmol/L Chloride (98-107) mmol/L Carbon Dioxide (22-30) mmol/L BUN (7-17) mg/dL Glucose (65-100) mg/dL POC Glucose 144 H 139 H 126 H (70-105) 12/16/19 12/16/19 12/16/19 Range/Units 05:44 05:44 11:48 WBC 30.8 H (4.5-11.0) K/mm3 RBC 2.58 L (3.65-5.03) M/mm3 Hgb 7.1 L (10.1-14.3) gm/dl Hct 22.7 L (30.3-42.9) % RDW 19.6 H (13.2-15.2) % Plt Count 451 H (140-440) K/mm3 Potassium 3.4 L (3.6-5.0) mmol/L Chloride 109.2 H (98-107) mmol/L Carbon Dioxide 19 L (22-30) mmol/L BUN 27 H (7-17) mg/dL Glucose 124 H (65-100) mg/dL POC Glucose 125 H (70-105)
[2019-12-16] MEDS: fentaNYL 25 MCG/HR PATCH 72HR TD SCH (16:23)
[2019-12-16 16:30] LABS: Bilirubin,Urine NEG (Negative); Blood,Urine SM (Negative); Color,Urine Yellow (Yellow); Granular Casts,Urine 3 /LPF; Hyaline Casts,Urine 3 /LPF; Mucus,Urine FEW /HPF; Urobilinogen,Urine < 2.0 mg/dL (<2.0)
[2019-12-16] MEDS: VANCOMYCIN 750 MG in SODIUM CHLORIDE 0.9% 250ML 250 ML IV SCH (20:53)
[2019-12-16] MEDS: QUEtiapine 100 MG TAB PO SCH (21:14)
[2019-12-17] MEDS: chlordiazePOXIDE 25 MG CAP PO SCH ×4 (07:54→21:27)
[2019-12-17] MEDS: VANCOMYCIN/NS 1 GM/250 ML 1 GM/250 ML BAG IV SCH ×2 (10:02→21:28)
[2019-12-17] MEDS: CEFEPIME/NS 2 GM/100 ML 2 GM/100 ML BAG IV SCH (10:02)
[2019-12-17] MEDS: ACETAMINOPHEN 325 MG/10.15 ML ORAL LIQD UNIT DOSE FEEDTUBE PRN (10:03)
[2019-12-17] MEDS: levETIRAcetam 500 MG/5 ML ORAL LIQD PO SCH ×2 (10:03→21:28)
[2019-12-17] MEDS: LANSOPRAZOLE 30 MG SOLUTAB FEEDTUBE SCH (10:03)
[2019-12-17] MEDS: TAMSULOSIN 0.4 MG CAP PO SCH (10:03)
[2019-12-17] MEDS: hydrOXYzine PAMOATE 25 MG CAP PO SCH ×2 (10:04→21:28)
[2019-12-17] MEDS: MIRTAZAPINE 30 MG TAB PO SCH (10:04)
[2019-12-17] MEDS: HEPARIN 5,000 UNIT/1 ML VIAL SUB-Q SCH (10:04)
[2019-12-17] MEDS: SERTRALINE 25 MG TAB PO SCH (10:04)
[2019-12-17] MEDS: LACTULOSE 20 GM/30 ML ORAL LIQD PO SCH ×2 (10:05→21:28)
[2019-12-17] MEDS: SENNOSIDES/DOCUSATE SODIUM 8.6/50 MG TAB PO SCH ×2 (10:05→21:28)
--- NOTE | 2019-12-17 10:27 | Progress Note ---
Assessment and Plan Assessment and plan: Patient is a 54-year-old woman with a history of Hypertension, Depression, tobacco and alcohol dependency who presented to [facility] ED on 11/22/2019 due to cardiac arrest outside of the hospital. EMS found pt in PEA. Upon their arrival patient in sinus tachycardia. EMS were unable to intubate patient with a ET tube because she was clenching down therefore Joe airway placed per records. Patient received Narcan and Epinephrine. Patient's rhythm changed to PEA to sinus bradycardia, to PEA, then to sinus tach after receiving Narcan and Epinephrine. Per the ED physician who evaluated pt, Patient presented with a pulse, intermittent respirations, and bagging support via Joe airway with O2 sat of 100%. Accu-Chek of 71 obtained by EMS Status post cardiac arrest, etiology unknown Acute respiratory failure with hypoxia s/p Intubation via ETT >96 hours: Trach and PEG planned, CCM following Acute cystitis with Sepsis, not sure POA, treated with antibiotics and this completed a few days 11/29/2019 ago no growth was noted on cultures no fever. We will continue off antibiotics at this time. Seizure disorder: treat with Keppra Presumed anoxic brain injury: Neurology is following Alcohol abuse: CIWA protocol Acute metabolic encephalopathy/toxic encephalopathy due to the above BHAVANA secondary to vasomotor nephropathy: treat with IVF Hypertension: watch bp closely, prn IV antihypertensives prn Distended abdomen: treat with NGT to suction Transaminitis with Ischemic hepatitis Metabolic acidosis/alcoholic acidosis/lactic acidosis H. Influenzae, tracheobronchitis Hypernatremia: free water and monitor bmp closely Full code DVT ppx: held sq heparin due to drop in h/h and anemia 12/04-: Patient failed CPAP trial became apneic according to documentation. No clinical change, continue current management, monitor H/H Awaiting labs. No new changes at this time opens eyes. Surgeon discussed trach and PEG with family but they want to get more information about hospice which they have been directed to the employment evaluator/case manager. Patient overnight had a episode of vomiting. Zofran started. 12/11/19: I took over patient care on day 18, Patient remains intubated, daily weaning trails. Trach and PEG planned once family consents. Mother is Anh Jesus @ [phone]. CCT 31 minutes 12/12/19: transfuse PRBC, s/p trach and PEG 3/26/20: Trach and PEG done, New fevers today, suspected Aspiration Pneumonitis vs Atelectasis; get blood cultures and empirically treat with ABX, levaquin/flagyl IV combo. Renewed restraints. ARF improved drastically as Cr went from 2.8 to 1.9 overnigh. however, WBC skyrocketed to 38.3k from 18k. Will repeat bmp and cbc, CCT 33 minutes 12/14/19: WBC improved slightly, potassium 2.5, renal function continue to improve. replete potassium, still febrile, re-consulted ID; give free water flushes via PEG. Dispo: aggressive wean and once off vent will have to discharge home, no insurance. 12/15/19: Still on MV Peep 6 fiO2 50%, ordered AM labs, renewed restraints. Right arm swollen, get Venous doppler-not done due to COVID-19 12/16/19: still on MV, PEEP 6 FiO2 30%, replete potassium, renewed restraints, give Tylenol of fevers (first real temp >100.4 since 12/14/19), green-culture, get CXR, UA. 12/17/19: Day 24 on MV, PEEP 6 FiO2 30%, trying to wean, held sq heparin due to drop in h/h and anemia, renewed restraints, fever appears to be due to worsening pneumonia, UA negative, pCXR Impression: Slight interval worsening of a consolidative opacity in the left mid to lower lung, worrisome for pneumonia in the appropriate clinical setting. Adjust Vancomycin dose continue cefepime with ID following. Swollen right arm with Venous doppler of right arm r/o DVT ordered but not done due to COVID-19, History Interval history: Patient was seen and examined. Follow-up on current diagnosis of Respiratory failure. Overnight uneventful as no events directly reported to me. Imaging, nursing note, chart, labs and old chart reviewed. Hospitalist Physical - Physical exam Narrative exam: Gen: critical ill, intubated, unresponsive not on sedation HEENT: ETT in place Neck: supple, no adenopathy, no thyromegaly, no JVD CVS/Heart: Regular Tachycardia, normal S1S2, pulses present bilaterally Chest/Lungs: CTA B, Symmetrical chest expansion, good air entry bilaterally GI/Abdomen: soft, NTND, good bowel sounds, no guarding or rebound MSK: right arm swollen Neuro: doesnt follow commands Psych: not responding - Constitutional Vitals: Temp Pulse Resp BP Pulse Ox 100.9 F H 126 H 28 H 117/68 97 12/17/19 09:42 12/17/19 07:52 12/17/19 06:00 12/17/19 07:52 12/17/19 08:04 General appearance: Present: no acute distress, other (on vent with sedation) Results - Labs CBC & Chem 7: 12/16/19 05:44 12/16/19 05:44 Labs: Laboratory Last Values WBC 30.8 K/mm3 (4.5-11.0) H 12/16/19 05:44 RBC 2.58 M/mm3 (3.65-5.03) L 12/16/19 05:44 Hgb 7.1 gm/dl (10.1-14.3) L 12/16/19 05:44 Hct 22.7 % (30.3-42.9) L 12/16/19 05:44 MCV 88 fl (79-97) 12/16/19 05:44 MCH 28 pg (28-32) 12/16/19 05:44 MCHC 31 % (30-34) 12/16/19 05:44 RDW 19.6 % (13.2-15.2) H 12/16/19 05:44 Plt Count 451 K/mm3 (140-440) H 12/16/19 05:44 Lymph % (Auto) 11.3 % (13.4-35.0) L 12/04/19 07:45 Hopkins % (Auto) 15.2 % (0.0-7.3) H 12/04/19 07:45 Eos % (Auto) 0.5 % (0.0-4.3) 12/04/19 07:45 Baso % (Auto) 0.6 % (0.0-1.8) 12/04/19 07:45 Lymph # 1.8 K/mm3 (1.2-5.4) 12/04/19 07:45 Hopkins # 2.4 K/mm3 (0.0-0.8) H 12/04/19 07:45 Eos # 0.1 K/mm3 (0.0-0.4) 12/04/19 07:45 Baso # 0.1 K/mm3 (0.0-0.1) 12/04/19 07:45 Add Manual Diff Complete 12/13/19 07:48 Total Counted 100 12/13/19 07:48 Seg Neutrophils % Machine Tool Mechanic 12/13/19 07:48 Seg Neuts % (Manual) 93.0 % (40.0-70.0) H 12/13/19 07:48 Band Neutrophils % 3.0 % 12/13/19 07:48 Lymphocytes % (Manual) 1.0 % (13.4-35.0) L 12/13/19 07:48 Reactive Lymphs % (Man) 0 % 12/13/19 07:48 Monocytes % (Manual) 1.0 % (0.0-7.3) 12/13/19 07:48 Eosinophils % (Manual) 1.0 % (0.0-4.3) 12/13/19 07:48 Basophils % (Manual) 1.0 % (0.0-1.8) 12/13/19 07:48 Metamyelocytes % 0 % 12/13/19 07:48 Myelocytes % 0 % 12/13/19 07:48 Promyelocytes % 0 % 12/13/19 07:48 Blast Cells % 0 % 12/13/19 07:48 Nucleated RBC % Not Reportable 12/13/19 07:48 Seg Neutrophils # 11.5 K/mm3 (1.8-7.7) H 12/04/19 07:45 Seg Neutrophils # Man 35.6 K/mm3 (1.8-7.7) H 12/13/19 07:48 Band Neutrophils # 1.1 K/mm3 12/13/19 07:48 Lymphocytes # (Manual) 0.4 K/mm3 (1.2-5.4) L 12/13/19 07:48 Abs React Lymphs (Man) 0.0 K/mm3 12/13/19 07:48 Monocytes # (Manual) 0.4 K/mm3 (0.0-0.8) 12/13/19 07:48 Eosinophils # (Manual) 0.4 K/mm3 (0.0-0.4) 12/13/19 07:48 Basophils # (Manual) 0.4 K/mm3 (0.0-0.1) H 12/13/19 07:48 Metamyelocytes # 0.0 K/mm3 12/13/19 07:48 Myelocytes # 0.0 K/mm3 12/13/19 07:48 Promyelocytes # 0.0 K/mm3 12/13/19 07:48 Blast Cells # 0.0 K/mm3 12/13/19 07:48 Pathologist Review 12/13/19 07:48 WBC Morphology Not Reportable 12/13/19 07:48 Hypersegmented Neuts Not Reportable 12/13/19 07:48 Hyposegmented Neuts Not Reportable 12/13/19 07:48 Hypogranular Neuts Not Reportable 12/13/19 07:48 Smudge Cells Not Reportable 12/13/19 07:48 Toxic Granulation Not Reportable 12/13/19 07:48 Toxic Vacuolation Not Reportable 12/13/19 07:48 Dohle Bodies Not Reportable 12/13/19 07:48 Pelger-Huet Anomaly Not Reportable 12/13/19 07:48 Dominique Rods Not Reportable 12/13/19 07:48 Platelet Estimate Consistent w auto 12/13/19 07:48 Clumped Platelets Not Reportable 12/13/19 07:48 Plt Clumps, EDTA Not Reportable 12/13/19 07:48 Large Platelets Not Reportable 12/13/19 07:48 Giant Platelets Not Reportable 12/13/19 07:48 Platelet Satelliting Not Reportable 12/13/19 07:48 Plt Morphology Comment Not Reportable 12/13/19 07:48 RBC Morphology Not Reportable 12/13/19 07:48 Dimorphic RBCs Not Reportable 12/13/19 07:48 Polychromasia Not Reportable 12/13/19 07:48 Hypochromasia 1+ 12/13/19 07:48 Poikilocytosis Not Reportable 12/13/19 07:48 Anisocytosis 1+ 12/13/19 07:48 Microcytosis Not Reportable 12/13/19 07:48 Macrocytosis Few 12/13/19 07:48 Spherocytes Not Reportable 12/13/19 07:48 Pappenheimer Bodies Not Reportable 12/13/19 07:48 Sickle Cells Not Reportable 12/13/19 07:48 Target Cells Not Reportable 12/13/19 07:48 Tear Drop Cells Not Reportable 12/13/19 07:48 Ovalocytes Not Reportable 12/13/19 07:48 Helmet Cells Not Reportable 12/13/19 07:48 [place] Bodies Not Reportable 12/13/19 07:48 [place] Rings Not Reportable 12/13/19 07:48 Jamshid Cells Not Reportable 12/13/19 07:48 Bite Cells Not Reportable 12/13/19 07:48 Crenated Cell Not Reportable 12/13/19 07:48 Elliptocytes Not Reportable 12/13/19 07:48 Acanthocytes (Spur) Not Reportable 12/13/19 07:48 Rouleaux Not Reportable 12/13/19 07:48 Hemoglobin C Crystals Not Reportable 12/13/19 07:48 Schistocytes Not Reportable 12/13/19 07:48 Malaria parasites Not Reportable 12/13/19 07:48 Gregg Bodies Not Reportable 12/13/19 07:48 Hem Pathologist Commnt Sent to pathology 12/13/19 07:48 PT 17.0 Sec. (12.2-14.9) H 11/23/19 03:47 INR 1.36 (0.87-1.13) H 11/23/19 03:47 APTT 128.2 Sec. (24.2-36.6) H* 11/23/19 03:47 Heparin Anti-Xa Level 0.31 U.I./ml (0.3-0.7) 11/23/19 09:03 ABG pH 7.444 pH Units (7.350-7.450) 12/14/19 16:15 ABG pCO2 35.4 mm Hg 12/14/19 16:15 ABG pO2 73.6 mm Hg (80.0-90.0) L 12/14/19 16:15 ABG HCO3 23.7 mmol/L (20.0-26.0) 12/14/19 16:15 ABG O2 Saturation 96.3 % (95.0-99.0) 12/14/19 16:15 ABG O2 Content 10.2 (0.0-44) 12/14/19 16:15 ABG Base Excess -0.2 mmol/L (-2.0-3.0) 12/14/19 16:15 ABG Hemoglobin 7.6 gm/dl (12.0-16.0) L 12/14/19 16:15 ABG Carboxyhemoglobin 1.8 % (0.0-5.0) 12/14/19 16:15 ABG Methemoglobin 0.6 % (0.0-1.5) 12/14/19 16:15 Oxyhemoglobin 94.0 % (95.0-99.0) L 12/14/19 16:15 FiO2 30 % 12/14/19 16:15 Sodium 145 mmol/L (137-145) 12/16/19 05:44 Potassium 3.4 mmol/L (3.6-5.0) L 12/16/19 05:44 Chloride 109.2 mmol/L (98-107) H 12/16/19 05:44 Carbon Dioxide 19 mmol/L (22-30) L 12/16/19 05:44 Anion Gap 20 mmol/L 12/16/19 05:44 BUN 27 mg/dL (7-17) H 12/16/19 05:44 Creatinine 0.9 mg/dL (0.7-1.2) 12/16/19 05:44 Estimated GFR > 60 ml/min 12/16/19 05:44 BUN/Creatinine Ratio 30 % 12/16/19 05:44 Glucose 124 mg/dL (65-100) H 12/16/19 05:44 POC Glucose 140 (70-105) H 12/17/19 05:28 Lactic Acid 1.80 mmol/L (0.7-2.0) 11/25/19 05:05 Calcium 9.2 mg/dL (8.4-10.2) 12/16/19 05:44 Ionized Calcium 4.5 mg/dL (4.8-5.6) L 11/23/19 06:32 Phosphorus 4.20 mg/dL (2.5-4.5) D 11/28/19 08:59 Magnesium 2.30 mg/dL (1.7-2.3) 11/29/19 13:41 Total Bilirubin 0.40 mg/dL (0.1-1.2) 12/13/19 07:48 AST 27 units/L (5-40) 12/13/19 07:48 ALT 26 units/L (7-56) 12/13/19 07:48 Alkaline Phosphatase 316 units/L (35-129) H 12/13/19 07:48 Ammonia 42.0 umol/L (25-60) 11/29/19 13:41 Total Creatine Kinase 139 units/L (30-135) H 11/22/19 23:27 CK-MB (CK-2) 8.3 ng/mL (0.0-4.0) H 11/22/19 23:27 CK-MB (CK-2) Rel Index 5.9 (0-4) H 11/22/19 23:27 Troponin T < 0.010 ng/mL (0.00-0.029) 11/22/19 23:27 Total Protein 6.8 g/dL (6.3-8.2) 12/13/19 07:48 Albumin 2.4 g/dL (3.9-5) L 12/13/19 07:48 Albumin/Globulin Ratio 0.5 % 12/13/19 07:48 Lipase 18 units/L (13-60) 11/23/19 00:34 Procalcitonin 1.09 ng/mL (<0.15) 11/23/19 04:53 Urine Color Yellow (Yellow) 12/16/19 Unknown Urine Turbidity Slightly-cloudy (Clear) 12/16/19 Unknown Urine pH 5.0 (5.0-7.0) 12/16/19 Unknown Ur Specific [employer] 1.018 (1.003-1.030) 12/16/19 Unknown Urine Protein 30 mg/dl mg/dL (Negative) 12/16/19 Unknown Urine Glucose (UA) Neg mg/dL (Negative) 12/16/19 Unknown Urine Ketones Neg mg/dL (Negative) 12/16/19 Unknown Urine Blood Sm (Negative) 12/16/19 Unknown Urine Nitrite Neg (Negative) 12/16/19 Unknown Urine Bilirubin Neg (Negative) 12/16/19 Unknown Urine Urobilinogen < 2.0 mg/dL (<2.0) 12/16/19 Unknown Ur Leukocyte Esterase Neg (Negative) 12/16/19 Unknown Urine WBC (Auto) 6.0 /HPF (0.0-6.0) 12/16/19 Unknown Urine RBC (Auto) 9.0 /HPF (0.0-6.0) 12/16/19 Unknown U Epithel Cells (Auto) < 1.0 /HPF (0-13.0) 12/16/19 Unknown Urine Bacteria (Auto) 2+ /HPF (Negative) 11/22/19 23:17 Hyaline Casts 3 /LPF 12/16/19 Unknown Granular Casts 3 /LPF 12/16/19 Unknown Urine Mucus Few /HPF 12/16/19 Unknown Salicylates < 0.3 mg/dL (2.8-20.0) L 11/22/19 23:27 Urine Opiates Screen Presumptive negative 11/22/19 23:17 Urine Methadone Screen Presumptive negative 11/22/19 23:17 Acetaminophen < 5.0 ug/mL (10.0-30.0) L 11/22/19 23:27 Ur Barbiturates Screen Presumptive negative 11/22/19 23:17 Ur Phencyclidine Scrn Presumptive negative 11/22/19 23:17 Ur Amphetamines Screen Presumptive negative 11/22/19 23:17 U Benzodiazepines Scrn Presumptive negative 11/22/19 23:17 Urine Cocaine Screen Presumptive negative 11/22/19 23:17 U Marijuana (THC) Screen Presumptive negative 11/22/19 23:17 Drugs of Abuse Note Disclamer 11/22/19 23:17 Plasma/Serum Alcohol 0.08 % (0-0.07) H 11/22/19 23:27 Hepatitis A IgM Ab Non-reactive (NonReactive) 11/23/19 01:19 Hep Bs Antigen Non-reactive (Negative) 11/23/19 01:19 Hep B Core IgM Ab Non-reactive (NonReactive) 11/23/19 01:19 Hepatitis C Antibody Non-reactive (NonReactive) 11/23/19 01:19 Blood Type O POSITIVE 12/12/19 10:30 Antibody Screen Negative 12/12/19 10:30 Crossmatch See Detail 12/12/19 10:30 Microbiology: Microbiology 12/13/19 21:06 Peripheral/Venous Blood Culture - Preliminary NO GROWTH AFTER 72 HOURS 12/16/19 14:33 Peripheral/Venous Blood Culture - Preliminary Culture in Progress 12/16/19 14:33 Peripheral/Venous Blood Culture - Preliminary Culture in Progress 12/13/19 21:39 Peripheral/Venous Blood Culture - Preliminary 12/15/19 20:42 Tracheal Aspirate Sputum Culture - Preliminary - Diagnostic Impressions Diagnostic Impressions: Echocardiogram 11/23/19 03:58 Transthoracic Echocardiogram Indication: Cardiac arrest BP: 131/89 HR: 115 Conclusions *The study quality is technically difficult. *Global left ventricular wall motion and contractility are within normal limits. *The estimated ejection fraction is 55-60%. *Abnormal left ventricular diastolic filling is observed, consistent with impaired relaxation. *There is no pericardial effusion. Findings Procedure Info: The study quality is technically difficult. The study was technically limited due to the patient's inability to lay in the left lateral decubitus position. Left Ventricle: The left ventricular chamber size is normal. There is no left ventricular hypertrophy. Global left ventricular wall motion and contractility are within normal limits. Global left ventricular systolic function is normal. The estimated ejection fraction is 55-60%. Abnormal left ventricular diastolic filling is observed, consistent with impaired relaxation. Left Atrium: The left atrial chamber size is normal. Aortic Valve: The aortic valve leaflets are mildly thickened. Mitral Valve: The mitral valve leaflets are mildly thickened. There is no evidence of mitral regurgitation. Tricuspid Valve: The tricuspid valve leaflets are normal. There is trace tricuspid regurgitation. The right ventricular systolic pressure is calculated at 33 mmHg. Pulmonic Valve: The pulmonic valve appears normal. Pericardium: The pericardium appears normal. There is no pericardial effusion. Aorta: The aorta appears normal. Venous: The inferior vena cava appears normal in size. Measurements Chambers 2D Name Value Normal Range IVSd (2D) 0.94 cm (0.6 - 1.1) LVPWd (2D) 0.81 cm (0.6 - 1.1) LVIDd (2D) 3.6 cm (3.7 - 5.6) LVIDs (2D) 2.27 cm (2 - 3.8) LV FS (2D) 36.93 % - EF Teichholz (2D) 67.76 % - Ao root diameter (2D) 3.03 cm (2 - 3.7) Volumes/Mass Name Value Normal Range LA ESV SP 4CH (A/L) 16.89 ml - LA ESV SP 4CH (MOD) 15.52 ml - Diastolic/Systolic Function Name Value Normal Range MV E-wave Vmax 0.55 m/sec - MV deceleration time 200.89 msec - MV A-wave Vmax 0.68 m/sec - MV E:A ratio 0.82 ratio - Aortic Valve Name Value Normal Range AV Vmax 1.1 m/sec - AV VTI 15.9 cm - AV peak gradient 4.86 mmHg - AV mean gradient 2.59 mmHg - LVOT diameter 2 cm - LVOT Vmax 1.03 m/sec - LVOT VTI 15.87 cm - LVOT peak gradient 4.24 mmHg - LVOT mean gradient 2.41 mmHg - SV LVOT 49.77 ml - JOSÉ MIGUEL (continuity Vmax) 2.93 cm2 - JOSÉ MIGUEL (continuity VTI) 3.13 cm2 - Tricuspid Valve Name Value Normal Range TR Vmax 2.74 m/sec - TR peak gradient 303 mmHg - RAP 3 mmHg - RVSP 33 mmHg - IVC diameter 1.77 cm (1.2 - 2.3) Pulmonic Valve/Qp:Qs Name Value Normal Range PV Vmax 0.77 m/sec - PV peak gradient 2.4 mmHg - PV acceleration time 114.18 msec - Dela Cruz/IV: Voiding Method Indwelling Catheter IV Catheter Type [Left Forearm Peripheral IV ] IV Catheter Type [Right Peripheral IV Antecubital] IV Catheter Type [Right Hand] Peripheral IV IV Catheter Type [Right Wrist] Peripheral IV IV Catheter Type [Left Wrist] Peripheral IV IV Catheter Type [Left Peripheral IV Antecubital] IV Catheter Type [Right INT / Saline Lock Forearm] IV Catheter Type [Left Hand] Peripheral IV Active Medications - Current Medications Current Medications: Generic Name Dose Route Start Last Admin Trade Name Freq PRN Reason Stop Dose Admin Acetaminophen 650 mg 12/06/19 10:25 12/17/19 10:03 Tylenol FEEDTUBE 650 mg Q6H PRN Administration TEMP >/=100.3 Lipase/Protease/Amylase 1 each 11/23/19 11:[address] 10,500 Unit FEEDTUBE PRN PRN For Clogged Feeding Tube Chlordiazepoxide HCl 75 mg 12/14/19 16:01 12/17/19 09:48 Librium PO Not Given Q8HR LUCHO Fentanyl 25 mcg 12/04/19 17:00 12/16/19 16:23 Duragesic TD 25 mcg Q3D LUCHO Administration Fentanyl 50 mcg 12/05/19 02:10 12/12/19 20:04 Sublimaze IV 50 mcg Q10MIN PRN Administration ANALGESIA Heparin Sodium (Porcine) 5,000 unit 03/06/20 22:00 12/17/19 10:04 Heparin SUB-Q 5,000 unit Q12HR LUCHO Administration Hydralazine HCl 10 mg 11/24/19 00:45 12/13/19 05:19 Apresoline IV 10 mg Q6H PRN Administration SBP > 160 Hydrophilic Ointment 1 applic 11/22/19 23:23 Vaseline Lip Therapy TP Q2HR PRN Dry Lips Hydroxyzine Pamoate 25 mg 12/06/19 10:00 12/17/19 10:04 Vistaril PO 25 mg BID LUCHO Administration Cefepime HCl 2 gm in 100 mls @ 200 mls/hr 12/14/19 22:00 12/17/19 10:02 Cefepime/Ns 2 Gm/100 Ml IV 200 mls/hr Q12HR LUCHO Administration Protocol Vancomycin HCl 1 gm in 250 mls @ 166.667 mls/hr 12/17/19 10:00 12/17/19 10:02 Vancomycin/Ns 1 Gm/250 Ml IV 166.667 mls/hr Q12HR LUCHO Administration Lactulose 30 gm 12/11/19 11:00 12/17/19 10:05 Cephulac PO Not Given BID LUCHO Lansoprazole 30 mg 11/27/19 10:00 12/17/19 10:03 Prevacid Solutab FEEDTUBE 30 mg QDAY LUCHO Administration Levetiracetam 500 mg 11/29/19 10:00 12/17/19 10:03 Keppra PO 500 mg BID LUCHO Administration Lorazepam 2 mg 11/26/19 11:09 12/13/19 05:19 Ativan IV 2 mg Q4H PRN Administration Agitation Mirtazapine 30 mg 12/06/19 10:00 12/17/19 10:04 Remeron PO 30 mg DAILY LUCHO Administration Morphine Sulfate 2 mg 12/12/19 18:40 12/14/19 22:18 Morphine IV 2 mg Q4H PRN Administration Pain, Moderate (4-6) Multi-Ingred Cream/Lotion/Oil/Oint 1 applic 11/22/19 23:23 Artificial Tears Ophth Oint OU Q4HR PRN Dry Eye(s) Ondansetron HCl 4 mg 12/10/19 07:53 12/10/19 09:51 Zofran IV 4 mg Q4H PRN Administration Nausea And Vomiting Quetiapine Fumarate 300 mg 12/07/19 22:00 12/16/19 21:14 Seroquel PO 300 mg QHS LUCHO Administration Scopolamine 1 each 12/12/19 15:00 12/15/19 14:18 Transderm-Scop TD 1 each Q3D LCUHO Administration Senna/Docusate Sodium 2 tab 12/10/19 10:00 12/17/19 10:05 Senokot S PO Not Given BID LUCHO Sertraline HCl 25 mg 12/06/19 10:00 12/17/19 10:04 Zoloft PO 25 mg QDAY LUCHO Administration Simple Syrup 15 ml 11/23/19 11:50 Simple Syrup FEEDTUBE PRN PRN Hypoglycemia Simple Syrup 30 ml 11/23/19 11:50 Simple Syrup FEEDTUBE PRN PRN Hypoglycemia Sodium Bicarbonate 325 mg 11/23/19 11:50 Sodium Bicarbonate FEEDTUBE PRN PRN For Clogged Feeding Tube Tamsulosin HCl 0.4 mg 12/14/19 13:00 12/17/19 10:03 Flomax PO 0.4 mg QDAY LUCHO Administration Nutrition/Malnutrition Assess - Dietary Evaluation Nutrition/Malnutrition Findings: Nutrition Notes Start: 11/23/19 11:29 Freq: Status: Active Protocol: Document 12/15/19 08:08 LP (Rec: 12/15/19 08:09 LP [id number]) Nutrition Notes Initial or Follow up Brief Note Subjective/Other Information F/U date too far out. Nutrition Intervention Follow-Up By: 12/20/19 Additional Comments Follow for stable TF tolerance
[2019-12-17 11:50] LABS: ABG Base Excess -0.2 mmol/L (-2.0-3.0); ABG Methemoglobin 0.3 % (0.0-1.5); ABG Oxygen Saturation 97.1 % (95.0-99.0); ABG PCO2 35.6 mm Hg; ABG PH 7.446 pH Units (7.350-7.450); ABG PO2 80.9 mm Hg (80.0-90.0)
--- NOTE | 2019-12-17 14:03 | Vascular Lab Report ---
VL venous duplex UE RT INDICATION / CLINICAL INFORMATION: RT swollen arm. COMPARISON: None available. FINDINGS: Superficial thrombosis in the right forearm. No evidence of deep venous thrombosis in the right upper extremity. IMPRESSION: 1. No evidence of DVT in the right upper extremity. 2. Superficial venous thrombosis in the right Signer Name: Taiwo Flores MD Signed: 12/17/2019 1:59 PM Workstation Name: [id number]
--- NOTE | 2019-12-17 14:35 | Progress Note ---
Assessment and Plan Acute cardiopulmonary arrest with ROSC Acute hypoxemic respiratory failure on MVS Acute metabolic-toxic encephalopathy Metabolic acidosis/alcoholic acidosis/Lactic acidosis Ischemic hepatitis Leucocytosis with lactic acidosis Tobacco use disorder ALcohol use Disorder Hypokalemia High grade fevers - follow C&S (Fever spikes improving but growing MRSA in blood and MSSA trach aspirate) - continue Antibiotics per ID recommendations; de-escalate based on HILARIO /sensitivities / clinical progress - reduce free water flushes as hypernatremia corrected - continue bronchodilators with routine trach care and pulmonary hygiene per RT - VAP bundle addressed (continue aspiration precautions, HOB > 40) - continue daily SAT's and assessment for readiness for SBT (For PSV trial today) - continue to rest on AC mode qhs - continue Seroquel for tentative delirium and to spare IV sedation - continue Librium at 75 mg po q8h - continue Reglan for G.I. motility - s/p CIWA protocol - Continue Intermittent sedation until patient's neurologic state can be better evaluated - begin Seroquel for agitation / to spare IV sedatives - Continue VTE and Stress ulcer prophylaxis - Continue enteric nutritional support. Monitor glycemic control, with target blood glucose 140-180 mg/dL while critically ill (Avoid hypoglycemia) - Continue daily SAT assessment as tolerated - Continue to wean supplemental oxygen for target O2 sat's > 90% - ABG and CXR prn - Continue to trend leukocytosis and lactic acidosis - Continue to treat for hepatic encephalopathy- especially with elevated ammonia levels- lactulose - Continue thiamine, multivitamin and electrolyte replacement - Continue to avoid nephrotoxins, adjust all medications fro GFR and CrCL - Continue to avoid benzodiazepines , as much as possible, to reduce the possibility of delirium - Continue prn analgesia per CPOT score - Continue to maintain of sleep-wake cycle, avoid delirium - PT/OT/ROM exercises- awaiting PT/OT evaluation - Continue mobility protocol and skin assessment per protocol for pressure ulcer prevention - Continue to monitor for clinical seizures - Continue Nicotine withdrawal precautions, alcohol withdrawal precautions - continue other care per attending / other consultants ..... re-evaluate in am & prn CONDITION: CRITICAL PROGNOSIS: GUARDED CODE STATUS: FULL CODE The high probability of a clinically significant, sudden or life-threatening deterioration of the [respiratory, cardiovascular,GI/hepatology] system(s) required my full and direct attention, intervention and personal management. The aggregate critical care time was [32] minutes without overlap. Time includes spent on; [x] Data Review and interpretation [x] Patient assessment and monitoring of vital signs [x] Documentation [x] Medication orders and management Subjective Date of service: 12/17/19 Principal diagnosis: Ac cardiopulmonary arrest; Ac hypoxemic resp failure; Acute encephalopathy Interval history: Patient is seen today for: Acute cardiopulmonary arrest with ROSC; Acute hypoxemic respiratory failure; Acute metabolic-toxic encephalopathy; Ischemic hepatitis; Leucocytosis with lactic acidosis; Tobacco use disorder; Alcohol use Disorder; Hypokalemia; High grade fevers Seen and examined at bedside; 24hour events reviewed; nursing and respiratory care staff consulted; no adverse overnight events reported to me; resting peacefully in bed; work of breathing intermittently increased; some redness noted at POEG site but no pus or gastric fluid effluent; AMS is persistent Objective Vital Signs - 12hr 12/17/19 12/17/19 12/17/19 03:00 03:51 04:00 Temperature 98.9 F Pulse Rate 129 H 127 H Pulse Rate [ From Monitor] Respiratory 26 H 24 Rate Blood Pressure 115/70 119/73 O2 Sat by Pulse 97 98 Oximetry O2 Sat by Pulse Oximetry [ Assessment] 12/17/19 12/17/19 12/17/19 04:05 04:37 05:00 Temperature Pulse Rate 128 H 132 H Pulse Rate [ 128 H From Monitor] Respiratory 26 H 28 H Rate Blood Pressure 119/73 127/77 O2 Sat by Pulse 97 97 97 Oximetry O2 Sat by Pulse Oximetry [ Assessment] 12/17/19 12/17/19 12/17/19 06:00 07:00 07:52 Temperature Pulse Rate 128 H 126 H 126 H Pulse Rate [ From Monitor] Respiratory 28 H 25 H Rate Blood Pressure 125/71 126/74 117/68 O2 Sat by Pulse 97 97 97 Oximetry O2 Sat by Pulse Oximetry [ Assessment] 12/17/19 12/17/19 12/17/19 08:00 08:04 08:54 Temperature 97.8 F Pulse Rate 127 H Pulse Rate [ 126 H From Monitor] Respiratory 24 Rate Blood Pressure 121/72 O2 Sat by Pulse 97 Oximetry O2 Sat by Pulse 97 Oximetry [ Assessment] 12/17/19 12/17/19 12/17/19 09:00 09:42 10:00 Temperature 100.9 F H Pulse Rate 126 H 123 H Pulse Rate [ From Monitor] Respiratory 25 H 23 Rate Blood Pressure 123/73 120/66 O2 Sat by Pulse 96 96 Oximetry O2 Sat by Pulse Oximetry [ Assessment] 12/17/19 12/17/19 12/17/19 11:00 11:22 12:00 Temperature Pulse Rate 123 H 117 H Pulse Rate [ 118 H From Monitor] Respiratory 24 24 25 H Rate Blood Pressure 119/71 112/73 O2 Sat by Pulse 96 97 98 Oximetry O2 Sat by Pulse Oximetry [ Assessment] 12/17/19 12/17/19 12/17/19 13:00 13:37 14:00 Temperature 98.2 F Pulse Rate 113 H 112 H Pulse Rate [ From Monitor] Respiratory 24 25 H Rate Blood Pressure 118/74 115/71 O2 Sat by Pulse 99 99 Oximetry O2 Sat by Pulse Oximetry [ Assessment] Constitutional: no acute distress, other (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, with midline tracheostomy and mild dys-synchrony) Eyes: non-icteric ENT: oropharynx moist, other (s/p trach) Neck: supple, no lymphadenopathy, no JVD Effort: mildly labored Ascultation: Bilateral: diminished breath sounds, rhonchi Percussion: Bilateral: not dull Cardiovascular: regular rate and rhythm (tachycardia), other (S1,S2) Gastrointestinal: normoactive bowel sounds, soft, non-tender, non-distended Integumentary: normal Extremities: no cyanosis, no edema, pulses normal, no ischemia or petechiae Neurologic: unable to assess, other (awake but not tracking voice ) Psychiatric: other (Psychiatric: Unable to assess) CBC and BMP: 12/18/19 04:53 12/18/19 04:53 ABG, PT/INR, D-dimer: ABG ABG pH 7.446 pH Units (7.350-7.450) 12/17/19 Unknown ABG pCO2 35.6 mm Hg 12/17/19 Unknown ABG pO2 80.9 mm Hg (80.0-90.0) 12/17/19 Unknown ABG O2 Saturation 97.1 % (95.0-99.0) 12/17/19 Unknown PT/INR, D-dimer PT 17.0 Sec. (12.2-14.9) H 11/23/19 03:47 INR 1.36 (0.87-1.13) H 11/23/19 03:47 Abnormal lab findings: Abnormal Labs 11/22/19 11/22/19 11/22/19 23:17 23:18 23:27 WBC 21.2 H RBC 3.59 L Hgb 9.8 L Hct MCH 27 L RDW 18.6 H Plt Count 454 H Lymph % (Auto) [place] % (Auto) [place] # Seg Neutrophils % Seg Neuts % (Manual) 86.0 H Lymphocytes % (Manual) 9.0 L Seg Neutrophils # Seg Neutrophils # Man 18.2 H Lymphocytes # (Manual) Monocytes # (Manual) 1.1 H Basophils # (Manual) PT INR APTT ABG pH ABG pO2 ABG HCO3 ABG O2 Saturation ABG Base Excess ABG Hemoglobin Oxyhemoglobin Sodium Potassium Chloride Carbon Dioxide BUN Creatinine Glucose POC Glucose 53 L Lactic Acid Calcium Ionized Calcium Phosphorus Magnesium Total Bilirubin AST ALT Alkaline Phosphatase Ammonia Total Creatine Kinase CK-MB (CK-2) CK-MB (CK-2) Rel Index Total Protein Albumin Urine WBC (Auto) 40.0 H Salicylates Acetaminophen Plasma/Serum Alcohol Crossmatch 11/22/19 11/22/19 11/22/19 23:27 23:27 23:27 WBC RBC Hgb Hct MCH RDW Plt Count Lymph % (Auto) [place] % (Auto) [place] # Seg Neutrophils % Seg Neuts % (Manual) Lymphocytes % (Manual) Seg Neutrophils # Seg Neutrophils # Man Lymphocytes # (Manual) Monocytes # (Manual) Basophils # (Manual) PT INR APTT ABG pH ABG pO2 ABG HCO3 ABG O2 Saturation ABG Base Excess ABG Hemoglobin Oxyhemoglobin Sodium Potassium 2.4 L* Chloride 85.1 L Carbon Dioxide 19 L BUN Creatinine 0.5 L Glucose 261 H POC Glucose Lactic Acid Calcium Ionized Calcium Phosphorus Magnesium Total Bilirubin AST 609 H ALT 152 H Alkaline Phosphatase 160 H Ammonia 117.0 H Total Creatine Kinase 139 H CK-MB (CK-2) 8.3 H CK-MB (CK-2) Rel Index 5.9 H Total Protein Albumin 3.6 L Urine WBC (Auto) Salicylates < 0.3 L Acetaminophen Plasma/Serum Alcohol Crossmatch 11/22/19 11/22/19 11/23/19 23:27 23:27 01:10 WBC RBC Hgb Hct MCH RDW Plt Count Lymph % (Auto) [place] % (Auto) [place] # Seg Neutrophils % Seg Neuts % (Manual) Lymphocytes % (Manual) Seg Neutrophils # Seg Neutrophils # Man Lymphocytes # (Manual) Monocytes # (Manual) Basophils # (Manual) PT INR APTT ABG pH 7.273 L ABG pO2 209.7 H ABG HCO3 ABG O2 Saturation 99.2 H ABG Base Excess -3.9 L ABG Hemoglobin 10.6 L Oxyhemoglobin 93.9 L Sodium Potassium Chloride Carbon Dioxide BUN Creatinine Glucose POC Glucose Lactic Acid Calcium Ionized Calcium Phosphorus Magnesium Total Bilirubin AST ALT Alkaline Phosphatase Ammonia Total Creatine Kinase CK-MB (CK-2) CK-MB (CK-2) Rel Index Total Protein Albumin Urine WBC (Auto) Salicylates Acetaminophen < 5.0 L Plasma/Serum Alcohol 0.08 H Crossmatch 11/23/19 11/23/19 11/23/19 01:19 01:19 03:47 WBC RBC Hgb Hct MCH RDW Plt Count Lymph % (Auto) [place] % (Auto) [place] # Seg Neutrophils % Seg Neuts % (Manual) Lymphocytes % (Manual) Seg Neutrophils # Seg Neutrophils # Man Lymphocytes # (Manual) Monocytes # (Manual) Basophils # (Manual) PT 16.3 H INR 1.29 H APTT ABG pH ABG pO2 ABG HCO3 ABG O2 Saturation ABG Base Excess ABG Hemoglobin Oxyhemoglobin Sodium Potassium Chloride Carbon Dioxide BUN Creatinine Glucose POC Glucose Lactic Acid 2.10 H* 5.00 H* Calcium Ionized Calcium Phosphorus Magnesium Total Bilirubin AST ALT Alkaline Phosphatase Ammonia Total Creatine Kinase CK-MB (CK-2) CK-MB (CK-2) Rel Index Total Protein Albumin Urine WBC (Auto) Salicylates Acetaminophen Plasma/Serum Alcohol Crossmatch 11/23/19 11/23/19 11/23/19 03:47 03:47 04:53 WBC RBC Hgb 9.4 L Hct MCH RDW Plt Count Lymph % (Auto) [place] % (Auto) [place] # Seg Neutrophils % Seg Neuts % (Manual) Lymphocytes % (Manual) Seg Neutrophils # Seg Neutrophils # Man Lymphocytes # (Manual) Monocytes # (Manual) Basophils # (Manual) PT 17.0 H INR 1.36 H APTT 128.2 H* ABG pH ABG pO2 ABG HCO3 ABG O2 Saturation ABG Base Excess ABG Hemoglobin Oxyhemoglobin Sodium Potassium Chloride Carbon Dioxide 18 L BUN Creatinine 0.5 L Glucose 105 H POC Glucose Lactic Acid Calcium 8.3 L Ionized Calcium Phosphorus 2.40 L Magnesium Total Bilirubin 1.30 H AST 761 H ALT 158 H Alkaline Phosphatase 143 H Ammonia Total Creatine Kinase CK-MB (CK-2) CK-MB (CK-2) Rel Index Total Protein Albumin 2.8 L Urine WBC (Auto) Salicylates Acetaminophen Plasma/Serum Alcohol Crossmatch 11/23/19 11/23/19 11/23/19 05:12 06:32 06:32 WBC 16.8 H RBC 3.31 L Hgb 8.9 L Hct 28.7 L MCH 27 L RDW 18.6 H Plt Count Lymph % (Auto) [place] % (Auto) [place] # Seg Neutrophils % Seg Neuts % (Manual) 94.0 H Lymphocytes % (Manual) 1.0 L Seg Neutrophils # Seg Neutrophils # Man 15.8 H Lymphocytes # (Manual) 0.2 L Monocytes # (Manual) Basophils # (Manual) PT INR APTT ABG pH ABG pO2 ABG HCO3 ABG O2 Saturation ABG Base Excess -3.2 L ABG Hemoglobin 9.0 L Oxyhemoglobin 93.6 L Sodium Potassium Chloride Carbon Dioxide BUN Creatinine Glucose POC Glucose Lactic Acid Calcium Ionized Calcium 4.5 L Phosphorus Magnesium Total Bilirubin AST ALT Alkaline Phosphatase Ammonia Total Creatine Kinase CK-MB (CK-2) CK-MB (CK-2) Rel Index Total Protein Albumin Urine WBC (Auto) Salicylates Acetaminophen Plasma/Serum Alcohol Crossmatch 11/23/19 11/24/19 11/24/19 06:32 04:35 04:35 WBC RBC Hgb Hct MCH RDW Plt Count Lymph % (Auto) [place] % (Auto) [place] # Seg Neutrophils % Seg Neuts % (Manual) Lymphocytes % (Manual) Seg Neutrophils # Seg Neutrophils # Man Lymphocytes # (Manual) Monocytes # (Manual) Basophils # (Manual) PT INR APTT ABG pH ABG pO2 ABG HCO3 ABG O2 Saturation ABG Base Excess ABG Hemoglobin Oxyhemoglobin Sodium Potassium Chloride Carbon Dioxide BUN Creatinine Glucose POC Glucose Lactic Acid 3.30 H* Calcium Ionized Calcium Phosphorus Magnesium 1.40 L Total Bilirubin AST ALT Alkaline Phosphatase Ammonia 98.0 H Total Creatine Kinase CK-MB (CK-2) CK-MB (CK-2) Rel Index Total Protein Albumin Urine WBC (Auto) Salicylates Acetaminophen Plasma/Serum Alcohol Crossmatch 0311/25/19 11/25/19 05:22 04:34 05:05 WBC 17.3 H RBC 2.88 L Hgb 7.8 L Hct 24.6 L MCH 27 L RDW 18.5 H Plt Count Lymph % (Auto) 7.7 L [place] % (Auto) 9.7 H [place] # 1.7 H Seg Neutrophils % 82.2 H Seg Neuts % (Manual) Lymphocytes % (Manual) Seg Neutrophils # 14.2 H Seg Neutrophils # Man Lymphocytes # (Manual) Monocytes # (Manual) Basophils # (Manual) PT INR APTT ABG pH 7.475 H ABG pO2 ABG HCO3 29.4 H 32.3 H ABG O2 Saturation ABG Base Excess 5.4 H 6.9 H ABG Hemoglobin 9.0 L 10.6 L Oxyhemoglobin 94.3 L Sodium Potassium Chloride Carbon Dioxide BUN Creatinine Glucose POC Glucose Lactic Acid Calcium Ionized Calcium Phosphorus Magnesium Total Bilirubin AST ALT Alkaline Phosphatase Ammonia Total Creatine Kinase CK-MB (CK-2) CK-MB (CK-2) Rel Index Total Protein Albumin Urine WBC (Auto) Salicylates Acetaminophen Plasma/Serum Alcohol Crossmatch 11/25/19 11/25/19 11/26/19 05:05 22:46 03:31 WBC RBC Hgb Hct MCH RDW Plt Count Lymph % (Auto) [place] % (Auto) [place] # Seg Neutrophils % Seg Neuts % (Manual) Lymphocytes % (Manual) Seg Neutrophils # Seg Neutrophils # Man Lymphocytes # (Manual) Monocytes # (Manual) Basophils # (Manual) PT INR APTT ABG pH 7.459 H ABG pO2 ABG HCO3 34.2 H ABG O2 Saturation ABG Base Excess 9.4 H ABG Hemoglobin 7.6 L Oxyhemoglobin 94.8 L Sodium 152 H D 147 H Potassium 2.3 L* D 2.8 L* D Chloride 107.8 H Carbon Dioxide 31 H D 33 H BUN Creatinine 0.6 L 0.6 L Glucose 148 H 177 H POC Glucose Lactic Acid Calcium Ionized Calcium Phosphorus Magnesium Total Bilirubin AST 105 H ALT 71 H Alkaline Phosphatase 155 H Ammonia Total Creatine Kinase CK-MB (CK-2) CK-MB (CK-2) Rel Index Total Protein 5.2 L D Albumin 2.9 L Urine WBC (Auto) Salicylates Acetaminophen Plasma/Serum Alcohol Crossmatch 11/26/19 11/26/19 11/27/19 08:24 08:24 04:20 WBC 12.0 H RBC 3.00 L Hgb 8.0 L 9.3 L Hct 25.9 L 29.7 L MCH 27 L RDW 18.5 H Plt Count Lymph % (Auto) [place] % (Auto) [place] # Seg Neutrophils % Seg Neuts % (Manual) 89.0 H Lymphocytes % (Manual) 4.0 L Seg Neutrophils # Seg Neutrophils # Man 10.7 H Lymphocytes # (Manual) 0.5 L Monocytes # (Manual) Basophils # (Manual) PT INR APTT ABG pH ABG pO2 ABG HCO3 ABG O2 Saturation ABG Base Excess ABG Hemoglobin Oxyhemoglobin Sodium 146 H Potassium 3.4 L D Chloride Carbon Dioxide BUN Creatinine 0.5 L Glucose 165 H POC Glucose Lactic Acid Calcium Ionized Calcium Phosphorus Magnesium Total Bilirubin AST 57 H ALT Alkaline Phosphatase 166 H Ammonia Total Creatine Kinase CK-MB (CK-2) CK-MB (CK-2) Rel Index Total Protein Albumin 2.9 L Urine WBC (Auto) Salicylates Acetaminophen Plasma/Serum Alcohol Crossmatch 11/27/19 11/27/19 11/27/19 04:28 04:28 04:42 WBC RBC Hgb Hct MCH RDW Plt Count Lymph % (Auto) [place] % (Auto) [place] # Seg Neutrophils % Seg Neuts % (Manual) Lymphocytes % (Manual) Seg Neutrophils # Seg Neutrophils # Man Lymphocytes # (Manual) Monocytes # (Manual) Basophils # (Manual) PT INR APTT ABG pH 7.470 H ABG pO2 74.0 L ABG HCO3 33.8 H ABG O2 Saturation ABG Base Excess 9.1 H ABG Hemoglobin 8.7 L Oxyhemoglobin 94.7 L Sodium 146 H Potassium 2.9 L* Chloride Carbon Dioxide BUN 25 H Creatinine Glucose 213 H POC Glucose Lactic Acid Calcium Ionized Calcium Phosphorus 1.00 L Magnesium Total Bilirubin AST ALT Alkaline Phosphatase Ammonia Total Creatine Kinase CK-MB (CK-2) CK-MB (CK-2) Rel Index Total Protein Albumin Urine WBC (Auto) Salicylates Acetaminophen Plasma/Serum Alcohol Crossmatch 11/27/19 11/27/19 11/27/19 05:37 12:20 15:46 WBC RBC Hgb Hct MCH RDW Plt Count Lymph % (Auto) [place] % (Auto) [place] # Seg Neutrophils % Seg Neuts % (Manual) Lymphocytes % (Manual) Seg Neutrophils # Seg Neutrophils # Man Lymphocytes # (Manual) Monocytes # (Manual) Basophils # (Manual) PT INR APTT ABG pH ABG pO2 ABG HCO3 ABG O2 Saturation ABG Base Excess ABG Hemoglobin Oxyhemoglobin Sodium 146 H Potassium 3.5 L D Chloride Carbon Dioxide BUN 24 H Creatinine 0.6 L Glucose 187 H POC Glucose 117 H 220 H Lactic Acid Calcium Ionized Calcium Phosphorus Magnesium Total Bilirubin AST ALT Alkaline Phosphatase Ammonia Total Creatine Kinase CK-MB (CK-2) CK-MB (CK-2) Rel Index Total Protein Albumin Urine WBC (Auto) Salicylates Acetaminophen Plasma/Serum Alcohol Crossmatch 11/27/19 11/28/19 11/28/19 17:28 05:00 05:02 WBC RBC Hgb Hct MCH RDW Plt Count Lymph % (Auto) [place] % (Auto) [place] # Seg Neutrophils % Seg Neuts % (Manual) Lymphocytes % (Manual) Seg Neutrophils # Seg Neutrophils # Man Lymphocytes # (Manual) Monocytes # (Manual) Basophils # (Manual) PT INR APTT ABG pH ABG pO2 72.4 L ABG HCO3 33.6 H ABG O2 Saturation 94.1 L ABG Base Excess 7.3 H ABG Hemoglobin Oxyhemoglobin 91.8 L Sodium 146 H Potassium 3.3 L Chloride Carbon Dioxide BUN 25 H Creatinine 0.6 L Glucose 176 H POC Glucose 198 H Lactic Acid Calcium Ionized Calcium Phosphorus Magnesium Total Bilirubin AST ALT Alkaline Phosphatase Ammonia Total Creatine Kinase CK-MB (CK-2) CK-MB (CK-2) Rel Index Total Protein Albumin Urine WBC (Auto) Salicylates Acetaminophen Plasma/Serum Alcohol Crossmatch 11/28/19 11/28/19 11/29/19 05:02 18:55 10:43 WBC 15.2 H 19.0 H RBC 3.06 L 3.01 L Hgb 8.3 L 8.3 L Hct 27.0 L 26.4 L MCH 27 L RDW 19.0 H 19.7 H Plt Count 479 H 611 H Lymph % (Auto) [place] % (Auto) [place] # Seg Neutrophils % Seg Neuts % (Manual) 92.0 H Lymphocytes % (Manual) 2.0 L Seg Neutrophils # Seg Neutrophils # Man 14.0 H Lymphocytes # (Manual) 0.3 L Monocytes # (Manual) Basophils # (Manual) PT INR APTT ABG pH ABG pO2 ABG HCO3 ABG O2 Saturation ABG Base Excess ABG Hemoglobin Oxyhemoglobin Sodium Potassium Chloride Carbon Dioxide BUN Creatinine Glucose POC Glucose 138 H Lactic Acid Calcium Ionized Calcium Phosphorus Magnesium Total Bilirubin AST ALT Alkaline Phosphatase Ammonia Total Creatine Kinase CK-MB (CK-2) CK-MB (CK-2) Rel Index Total Protein Albumin Urine WBC (Auto) Salicylates Acetaminophen Plasma/Serum Alcohol Crossmatch 11/29/19 11/29/19 11/29/19 10:43 12:27 19:25 WBC RBC Hgb Hct MCH RDW Plt Count Lymph % (Auto) [place] % (Auto) [place] # Seg Neutrophils % Seg Neuts % (Manual) Lymphocytes % (Manual) Seg Neutrophils # Seg Neutrophils # Man Lymphocytes # (Manual) Monocytes # (Manual) Basophils # (Manual) PT INR APTT ABG pH ABG pO2 ABG HCO3 ABG O2 Saturation ABG Base Excess ABG Hemoglobin Oxyhemoglobin Sodium Potassium 2.8 L* Chloride Carbon Dioxide BUN 20 H Creatinine 0.5 L Glucose 121 H POC Glucose 128 H 120 H Lactic Acid Calcium Ionized Calcium Phosphorus Magnesium Total Bilirubin AST ALT Alkaline Phosphatase Ammonia Total Creatine Kinase CK-MB (CK-2) CK-MB (CK-2) Rel Index Total Protein Albumin Urine WBC (Auto) Salicylates Acetaminophen Plasma/Serum Alcohol Crossmatch 11/29/19 11/30/19 11/30/19 23:46 04:10 05:02 WBC RBC Hgb Hct MCH RDW Plt Count Lymph % (Auto) [place] % (Auto) [place] # Seg Neutrophils % Seg Neuts % (Manual) Lymphocytes % (Manual) Seg Neutrophils # Seg Neutrophils # Man Lymphocytes # (Manual) Monocytes # (Manual) Basophils # (Manual) PT INR APTT ABG pH ABG pO2 76.3 L ABG HCO3 32.5 H ABG O2 Saturation ABG Base Excess 6.9 H ABG Hemoglobin 8.0 L Oxyhemoglobin 92.6 L Sodium Potassium Chloride Carbon Dioxide BUN Creatinine Glucose POC Glucose 116 H 128 H Lactic Acid Calcium Ionized Calcium Phosphorus Magnesium Total Bilirubin AST ALT Alkaline Phosphatase Ammonia Total Creatine Kinase CK-MB (CK-2) CK-MB (CK-2) Rel Index Total Protein Albumin Urine WBC (Auto) Salicylates Acetaminophen Plasma/Serum Alcohol Crossmatch 11/30/19 11/30/19 11/30/19 05:25 05:25 12:59 WBC 18.4 H RBC 3.10 L Hgb 8.5 L Hct 27.5 L MCH 27 L RDW 20.9 H Plt Count 691 H Lymph % (Auto) 7.1 L [place] % (Auto) 7.7 H [place] # 1.4 H Seg Neutrophils % 83.4 H Seg Neuts % (Manual) Lymphocytes % (Manual) Seg Neutrophils # 15.4 H Seg Neutrophils # Man Lymphocytes # (Manual) Monocytes # (Manual) Basophils # (Manual) PT INR APTT ABG pH ABG pO2 ABG HCO3 ABG O2 Saturation ABG Base Excess ABG Hemoglobin Oxyhemoglobin Sodium 146 H Potassium Chloride 107.2 H Carbon Dioxide BUN Creatinine 0.5 L Glucose 132 H POC Glucose 124 H Lactic Acid Calcium Ionized Calcium Phosphorus Magnesium Total Bilirubin AST 246 H ALT 274 H Alkaline Phosphatase 203 H Ammonia Total Creatine Kinase CK-MB (CK-2) CK-MB (CK-2) Rel Index Total Protein 5.4 L Albumin 2.9 L Urine WBC (Auto) Salicylates Acetaminophen Plasma/Serum Alcohol Crossmatch 11/30/19 12/01/19 12/01/19 17:53 00:05 05:10 WBC RBC Hgb Hct MCH RDW Plt Count Lymph % (Auto) [place] % (Auto) [place] # Seg Neutrophils % Seg Neuts % (Manual) Lymphocytes % (Manual) Seg Neutrophils # Seg Neutrophils # Man Lymphocytes # (Manual) Monocytes # (Manual) Basophils # (Manual) PT INR APTT ABG pH ABG pO2 ABG HCO3 ABG O2 Saturation ABG Base Excess ABG Hemoglobin Oxyhemoglobin Sodium Potassium Chloride Carbon Dioxide BUN Creatinine Glucose POC Glucose 113 H 143 H 145 H Lactic Acid Calcium Ionized Calcium Phosphorus Magnesium Total Bilirubin AST ALT Alkaline Phosphatase Ammonia Total Creatine Kinase CK-MB (CK-2) CK-MB (CK-2) Rel Index Total Protein Albumin Urine WBC (Auto) Salicylates Acetaminophen Plasma/Serum Alcohol Crossmatch 12/01/19 12/01/19 12/01/19 05:33 08:23 08:23 WBC 22.7 H RBC 2.88 L Hgb 7.9 L Hct 25.2 L MCH 27 L RDW 21.0 H Plt Count 732 H Lymph % (Auto) [place] % (Auto) [place] # Seg Neutrophils % Seg Neuts % (Manual) 91.0 H Lymphocytes % (Manual) 3.0 L Seg Neutrophils # Seg Neutrophils # Man 20.7 H Lymphocytes # (Manual) 0.7 L Monocytes # (Manual) 1.1 H Basophils # (Manual) PT INR APTT ABG pH ABG pO2 68.6 L ABG HCO3 34.1 H ABG O2 Saturation ABG Base Excess 9.0 H ABG Hemoglobin 6.5 L Oxyhemoglobin 94.7 L Sodium Potassium Chloride Carbon Dioxide BUN Creatinine 0.5 L Glucose 125 H POC Glucose Lactic Acid Calcium Ionized Calcium Phosphorus Magnesium Total Bilirubin AST ALT Alkaline Phosphatase Ammonia Total Creatine Kinase CK-MB (CK-2) CK-MB (CK-2) Rel Index Total Protein Albumin Urine WBC (Auto) Salicylates Acetaminophen Plasma/Serum Alcohol Crossmatch 12/01/19 12/01/19 12/01/19 13:21 17:54 20:59 WBC RBC Hgb Hct MCH RDW Plt Count Lymph % (Auto) [place] % (Auto) [place] # Seg Neutrophils % Seg Neuts % (Manual) Lymphocytes % (Manual) Seg Neutrophils # Seg Neutrophils # Man Lymphocytes # (Manual) Monocytes # (Manual) Basophils # (Manual) PT INR APTT ABG pH ABG pO2 78.3 L ABG HCO3 33.8 H ABG O2 Saturation 94.9 L ABG Base Excess 7.9 H ABG Hemoglobin 11.5 L Oxyhemoglobin 92.3 L Sodium Potassium Chloride Carbon Dioxide BUN Creatinine Glucose POC Glucose 111 H 115 H Lactic Acid Calcium Ionized Calcium Phosphorus Magnesium Total Bilirubin AST ALT Alkaline Phosphatase Ammonia Total Creatine Kinase CK-MB (CK-2) CK-MB (CK-2) Rel Index Total Protein Albumin Urine WBC (Auto) Salicylates Acetaminophen Plasma/Serum Alcohol Crossmatch 12/02/19 12/03/19 12/04/19 12:55 20:00 04:26 WBC 15.2 H RBC 2.69 L Hgb 7.4 L Hct 23.6 L MCH 27 L RDW 19.9 H Plt Count 838 H Lymph % (Auto) [place] % (Auto) [place] # Seg Neutrophils % Seg Neuts % (Manual) Lymphocytes % (Manual) Seg Neutrophils # Seg Neutrophils # Man Lymphocytes # (Manual) Monocytes # (Manual) Basophils # (Manual) PT INR APTT ABG pH ABG pO2 68.3 L ABG HCO3 33.5 H ABG O2 Saturation 93.5 L ABG Base Excess 8.4 H ABG Hemoglobin 7.3 L Oxyhemoglobin 90.9 L Sodium Potassium Chloride Carbon Dioxide BUN Creatinine Glucose POC Glucose 107 H Lactic Acid Calcium Ionized Calcium Phosphorus Magnesium Total Bilirubin AST ALT Alkaline Phosphatase Ammonia Total Creatine Kinase CK-MB (CK-2) CK-MB (CK-2) Rel Index Total Protein Albumin Urine WBC (Auto) Salicylates Acetaminophen Plasma/Serum Alcohol Crossmatch 12/04/19 12/04/19 12/04/19 04:26 07:45 12:02 WBC 15.9 H RBC 2.88 L Hgb 7.9 L Hct 25.1 L MCH RDW 20.4 H Plt Count 839 H Lymph % (Auto) 11.3 L [place] % (Auto) 15.2 H [place] # 2.4 H Seg Neutrophils % 72.4 H Seg Neuts % (Manual) Lymphocytes % (Manual) Seg Neutrophils # 11.5 H Seg Neutrophils # Man Lymphocytes # (Manual) Monocytes # (Manual) Basophils # (Manual) PT INR APTT ABG pH ABG pO2 ABG HCO3 ABG O2 Saturation ABG Base Excess ABG Hemoglobin Oxyhemoglobin Sodium Potassium Chloride 96.5 L Carbon Dioxide BUN 21 H Creatinine 0.6 L Glucose 107 H POC Glucose 138 H Lactic Acid Calcium Ionized Calcium Phosphorus Magnesium Total Bilirubin AST ALT Alkaline Phosphatase Ammonia Total Creatine Kinase CK-MB (CK-2) CK-MB (CK-2) Rel Index Total Protein Albumin Urine WBC (Auto) Salicylates Acetaminophen Plasma/Serum Alcohol Crossmatch 12/04/19 12/05/19 12/05/19 18:16 11:55 18:36 WBC RBC Hgb Hct MCH RDW Plt Count Lymph % (Auto) [place] % (Auto) [place] # Seg Neutrophils % Seg Neuts % (Manual) Lymphocytes % (Manual) Seg Neutrophils # Seg Neutrophils # Man Lymphocytes # (Manual) Monocytes # (Manual) Basophils # (Manual) PT INR APTT ABG pH ABG pO2 ABG HCO3 ABG O2 Saturation ABG Base Excess ABG Hemoglobin Oxyhemoglobin Sodium Potassium Chloride Carbon Dioxide BUN Creatinine Glucose POC Glucose 135 H 125 H 135 H Lactic Acid Calcium Ionized Calcium Phosphorus Magnesium Total Bilirubin AST ALT Alkaline Phosphatase Ammonia Total Creatine Kinase CK-MB (CK-2) CK-MB (CK-2) Rel Index Total Protein Albumin Urine WBC (Auto) Salicylates Acetaminophen Plasma/Serum Alcohol Crossmatch 12/05/19 12/06/19 12/06/19 23:30 04:14 05:43 WBC RBC Hgb Hct MCH RDW Plt Count Lymph % (Auto) [place] % (Auto) [place] # Seg Neutrophils % Seg Neuts % (Manual) Lymphocytes % (Manual) Seg Neutrophils # Seg Neutrophils # Man Lymphocytes # (Manual) Monocytes # (Manual) Basophils # (Manual) PT INR APTT ABG pH ABG pO2 ABG HCO3 ABG O2 Saturation ABG Base Excess ABG Hemoglobin Oxyhemoglobin Sodium Potassium 5.6 H Chloride 95.0 L Carbon Dioxide BUN 48 H Creatinine 1.3 H D Glucose POC Glucose 126 H 121 H Lactic Acid Calcium Ionized Calcium Phosphorus Magnesium Total Bilirubin AST 89 H ALT 98 H Alkaline Phosphatase 476 H Ammonia Total Creatine Kinase CK-MB (CK-2) CK-MB (CK-2) Rel Index Total Protein Albumin 2.8 L Urine WBC (Auto) Salicylates Acetaminophen Plasma/Serum Alcohol Crossmatch 12/06/19 12/06/19 12/07/19 10:39 14:34 00:19 WBC 17.3 H RBC 2.60 L Hgb 7.1 L Hct 22.7 L MCH 27 L RDW 20.1 H Plt Count 832 H Lymph % (Auto) [place] % (Auto) [place] # Seg Neutrophils % Seg Neuts % (Manual) Lymphocytes % (Manual) Seg Neutrophils # Seg Neutrophils # Man Lymphocytes # (Manual) Monocytes # (Manual) Basophils # (Manual) PT INR APTT ABG pH ABG pO2 ABG HCO3 ABG O2 Saturation ABG Base Excess ABG Hemoglobin Oxyhemoglobin Sodium Potassium Chloride Carbon Dioxide BUN Creatinine Glucose POC Glucose 128 H 136 H Lactic Acid Calcium Ionized Calcium Phosphorus Magnesium Total Bilirubin AST ALT Alkaline Phosphatase Ammonia Total Creatine Kinase CK-MB (CK-2) CK-MB (CK-2) Rel Index Total Protein Albumin Urine WBC (Auto) Salicylates Acetaminophen Plasma/Serum Alcohol Crossmatch 12/07/19 12/07/19 12/07/19 03:44 03:44 05:53 WBC 16.2 H RBC 2.56 L Hgb 7.1 L Hct 22.3 L MCH RDW 19.4 H Plt Count 782 H Lymph % (Auto) [place] % (Auto) [place] # Seg Neutrophils % Seg Neuts % (Manual) Lymphocytes % (Manual) Seg Neutrophils # Seg Neutrophils # Man Lymphocytes # (Manual) Monocytes # (Manual) Basophils # (Manual) PT INR APTT ABG pH ABG pO2 ABG HCO3 ABG O2 Saturation ABG Base Excess ABG Hemoglobin Oxyhemoglobin Sodium Potassium Chloride 95.6 L Carbon Dioxide BUN 56 H Creatinine 1.4 H Glucose 120 H POC Glucose 128 H Lactic Acid Calcium 10.3 H Ionized Calcium Phosphorus Magnesium Total Bilirubin AST ALT Alkaline Phosphatase Ammonia Total Creatine Kinase CK-MB (CK-2) CK-MB (CK-2) Rel Index Total Protein Albumin Urine WBC (Auto) Salicylates Acetaminophen Plasma/Serum Alcohol Crossmatch 12/07/19 12/07/19 12/08/19 12:54 23:47 00:20 WBC RBC Hgb Hct MCH RDW Plt Count Lymph % (Auto) [place] % (Auto) [place] # Seg Neutrophils % Seg Neuts % (Manual) Lymphocytes % (Manual) Seg Neutrophils # Seg Neutrophils # Man Lymphocytes # (Manual) Monocytes # (Manual) Basophils # (Manual) PT INR APTT ABG pH ABG pO2 ABG HCO3 ABG O2 Saturation ABG Base Excess ABG Hemoglobin Oxyhemoglobin Sodium Potassium Chloride Carbon Dioxide BUN Creatinine Glucose POC Glucose 128 H 130 H 124 H Lactic Acid Calcium Ionized Calcium Phosphorus Magnesium Total Bilirubin AST ALT Alkaline Phosphatase Ammonia Total Creatine Kinase CK-MB (CK-2) CK-MB (CK-2) Rel Index Total Protein Albumin Urine WBC (Auto) Salicylates Acetaminophen Plasma/Serum Alcohol Crossmatch 12/08/19 12/08/19 12/08/19 06:38 12:04 18:26 WBC RBC Hgb Hct MCH RDW Plt Count Lymph % (Auto) [place] % (Auto) [place] # Seg Neutrophils % Seg Neuts % (Manual) Lymphocytes % (Manual) Seg Neutrophils # Seg Neutrophils # Man Lymphocytes # (Manual) Monocytes # (Manual) Basophils # (Manual) PT INR APTT ABG pH ABG pO2 ABG HCO3 ABG O2 Saturation ABG Base Excess ABG Hemoglobin Oxyhemoglobin Sodium Potassium Chloride Carbon Dioxide BUN Creatinine Glucose POC Glucose 137 H 129 H 150 H Lactic Acid Calcium Ionized Calcium Phosphorus Magnesium Total Bilirubin AST ALT Alkaline Phosphatase Ammonia Total Creatine Kinase CK-MB (CK-2) CK-MB (CK-2) Rel Index Total Protein Albumin Urine WBC (Auto) Salicylates Acetaminophen Plasma/Serum Alcohol Crossmatch 12/09/19 12/09/19 12/09/19 00:56 05:34 06:13 WBC RBC Hgb Hct MCH RDW Plt Count Lymph % (Auto) [place] % (Auto) [place] # Seg Neutrophils % Seg Neuts % (Manual) Lymphocytes % (Manual) Seg Neutrophils # Seg Neutrophils # Man Lymphocytes # (Manual) Monocytes # (Manual) Basophils # (Manual) PT INR APTT ABG pH ABG pO2 ABG HCO3 ABG O2 Saturation ABG Base Excess ABG Hemoglobin Oxyhemoglobin Sodium 146 H Potassium Chloride Carbon Dioxide BUN 66 H Creatinine 1.9 H Glucose 116 H POC Glucose 130 H 130 H Lactic Acid Calcium Ionized Calcium Phosphorus Magnesium Total Bilirubin AST ALT Alkaline Phosphatase Ammonia Total Creatine Kinase CK-MB (CK-2) CK-MB (CK-2) Rel Index Total Protein Albumin Urine WBC (Auto) Salicylates Acetaminophen Plasma/Serum Alcohol Crossmatch 12/09/19 12/09/19 12/10/19 11:52 17:50 00:14 WBC RBC Hgb Hct MCH RDW Plt Count Lymph % (Auto) [place] % (Auto) [place] # Seg Neutrophils % Seg Neuts % (Manual) Lymphocytes % (Manual) Seg Neutrophils # Seg Neutrophils # Man Lymphocytes # (Manual) Monocytes # (Manual) Basophils # (Manual) PT INR APTT ABG pH ABG pO2 ABG HCO3 ABG O2 Saturation ABG Base Excess ABG Hemoglobin Oxyhemoglobin Sodium Potassium Chloride Carbon Dioxide BUN Creatinine Glucose POC Glucose 135 H 120 H 116 H Lactic Acid Calcium Ionized Calcium Phosphorus Magnesium Total Bilirubin AST ALT Alkaline Phosphatase Ammonia Total Creatine Kinase CK-MB (CK-2) CK-MB (CK-2) Rel Index Total Protein Albumin Urine WBC (Auto) Salicylates Acetaminophen Plasma/Serum Alcohol Crossmatch 12/10/19 12/10/19 12/10/19 05:38 11:38 17:34 WBC RBC Hgb Hct MCH RDW Plt Count Lymph % (Auto) [place] % (Auto) [place] # Seg Neutrophils % Seg Neuts % (Manual) Lymphocytes % (Manual) Seg Neutrophils # Seg Neutrophils # Man Lymphocytes # (Manual) Monocytes # (Manual) Basophils # (Manual) PT INR APTT ABG pH ABG pO2 ABG HCO3 ABG O2 Saturation ABG Base Excess ABG Hemoglobin Oxyhemoglobin Sodium Potassium Chloride Carbon Dioxide BUN Creatinine Glucose POC Glucose 115 H 112 H 130 H Lactic Acid Calcium Ionized Calcium Phosphorus Magnesium Total Bilirubin AST ALT Alkaline Phosphatase Ammonia Total Creatine Kinase CK-MB (CK-2) CK-MB (CK-2) Rel Index Total Protein Albumin Urine WBC (Auto) Salicylates Acetaminophen Plasma/Serum Alcohol Crossmatch 12/11/19 12/11/19 12/11/19 00:20 05:31 12:22 WBC RBC Hgb Hct MCH RDW Plt Count Lymph % (Auto) [place] % (Auto) [place] # Seg Neutrophils % Seg Neuts % (Manual) Lymphocytes % (Manual) Seg Neutrophils # Seg Neutrophils # Man Lymphocytes # (Manual) Monocytes # (Manual) Basophils # (Manual) PT INR APTT ABG pH ABG pO2 ABG HCO3 ABG O2 Saturation ABG Base Excess ABG Hemoglobin Oxyhemoglobin Sodium Potassium Chloride Carbon Dioxide BUN Creatinine Glucose POC Glucose 124 H 132 H 128 H Lactic Acid Calcium Ionized Calcium Phosphorus Magnesium Total Bilirubin AST ALT Alkaline Phosphatase Ammonia Total Creatine Kinase CK-MB (CK-2) CK-MB (CK-2) Rel Index Total Protein Albumin Urine WBC (Auto) Salicylates Acetaminophen Plasma/Serum Alcohol Crossmatch 12/11/19 12/11/19 12/12/19 18:04 23:42 03:51 WBC RBC Hgb Hct MCH RDW Plt Count Lymph % (Auto) [place] % (Auto) [place] # Seg Neutrophils % Seg Neuts % (Manual) Lymphocytes % (Manual) Seg Neutrophils # Seg Neutrophils # Man Lymphocytes # (Manual) Monocytes # (Manual) Basophils # (Manual) PT INR APTT ABG pH ABG pO2 ABG HCO3 ABG O2 Saturation ABG Base Excess ABG Hemoglobin Oxyhemoglobin Sodium 149 H Potassium Chloride Carbon Dioxide 20 L D BUN 77 H Creatinine 2.8 H Glucose POC Glucose 133 H 154 H Lactic Acid Calcium Ionized Calcium Phosphorus Magnesium Total Bilirubin AST ALT Alkaline Phosphatase Ammonia Total Creatine Kinase CK-MB (CK-2) CK-MB (CK-2) Rel Index Total Protein Albumin Urine WBC (Auto) Salicylates Acetaminophen Plasma/Serum Alcohol Crossmatch 12/12/19 12/12/19 12/12/19 05:18 05:26 10:30 WBC 18.0 H RBC 2.51 L Hgb 6.8 L Hct 22.0 L MCH 27 L RDW 19.9 H Plt Count 582 H Lymph % (Auto) [place] % (Auto) [place] # Seg Neutrophils % Seg Neuts % (Manual) Lymphocytes % (Manual) Seg Neutrophils # Seg Neutrophils # Man Lymphocytes # (Manual) Monocytes # (Manual) Basophils # (Manual) PT INR APTT ABG pH ABG pO2 ABG HCO3 ABG O2 Saturation ABG Base Excess ABG Hemoglobin Oxyhemoglobin Sodium Potassium Chloride Carbon Dioxide BUN Creatinine Glucose POC Glucose 135 H Lactic Acid Calcium Ionized Calcium Phosphorus Magnesium Total Bilirubin AST ALT Alkaline Phosphatase Ammonia Total Creatine Kinase CK-MB (CK-2) CK-MB (CK-2) Rel Index Total Protein Albumin Urine WBC (Auto) Salicylates Acetaminophen Plasma/Serum Alcohol Crossmatch See Detail 12/12/19 12/12/19 12/12/19 11:44 18:10 23:21 WBC RBC Hgb Hct MCH RDW Plt Count Lymph % (Auto) [place] % (Auto) [place] # Seg Neutrophils % Seg Neuts % (Manual) Lymphocytes % (Manual) Seg Neutrophils # Seg Neutrophils # Man Lymphocytes # (Manual) Monocytes # (Manual) Basophils # (Manual) PT INR APTT ABG pH ABG pO2 ABG HCO3 ABG O2 Saturation ABG Base Excess ABG Hemoglobin Oxyhemoglobin Sodium Potassium Chloride Carbon Dioxide BUN Creatinine Glucose POC Glucose 108 H 107 H 126 H Lactic Acid Calcium Ionized Calcium Phosphorus Magnesium Total Bilirubin AST ALT Alkaline Phosphatase Ammonia Total Creatine Kinase CK-MB (CK-2) CK-MB (CK-2) Rel Index Total Protein Albumin Urine WBC (Auto) Salicylates Acetaminophen Plasma/Serum Alcohol Crossmatch 12/13/19 12/13/19 12/13/19 05:41 07:48 07:48 WBC 38.3 H RBC 2.37 L Hgb 6.3 L Hct 20.9 L MCH 27 L RDW 20.2 H Plt Count 546 H Lymph % (Auto) [place] % (Auto) [place] # Seg Neutrophils % Seg Neuts % (Manual) 93.0 H Lymphocytes % (Manual) 1.0 L Seg Neutrophils # Seg Neutrophils # Man 35.6 H Lymphocytes # (Manual) 0.4 L Monocytes # (Manual) Basophils # (Manual) 0.4 H PT INR APTT ABG pH ABG pO2 ABG HCO3 ABG O2 Saturation ABG Base Excess ABG Hemoglobin Oxyhemoglobin Sodium 152 H Potassium 3.1 L D Chloride 111.9 H Carbon Dioxide 21 L BUN 53 H Creatinine 1.9 H Glucose 141 H POC Glucose 128 H Lactic Acid Calcium Ionized Calcium Phosphorus Magnesium Total Bilirubin AST ALT Alkaline Phosphatase 316 H Ammonia Total Creatine Kinase CK-MB (CK-2) CK-MB (CK-2) Rel Index Total Protein Albumin 2.4 L Urine WBC (Auto) Salicylates Acetaminophen Plasma/Serum Alcohol Crossmatch 12/13/19 12/13/19 12/14/19 18:17 23:19 05:36 WBC RBC Hgb Hct MCH RDW Plt Count Lymph % (Auto) [place] % (Auto) [place] # Seg Neutrophils % Seg Neuts % (Manual) Lymphocytes % (Manual) Seg Neutrophils # Seg Neutrophils # Man Lymphocytes # (Manual) Monocytes # (Manual) Basophils # (Manual) PT INR APTT ABG pH ABG pO2 ABG HCO3 ABG O2 Saturation ABG Base Excess ABG Hemoglobin Oxyhemoglobin Sodium Potassium Chloride Carbon Dioxide BUN Creatinine Glucose POC Glucose 141 H 158 H 182 H Lactic Acid Calcium Ionized Calcium Phosphorus Magnesium Total Bilirubin AST ALT Alkaline Phosphatase Ammonia Total Creatine Kinase CK-MB (CK-2) CK-MB (CK-2) Rel Index Total Protein Albumin Urine WBC (Auto) Salicylates Acetaminophen Plasma/Serum Alcohol Crossmatch 12/14/19 12/14/19 12/14/19 08:48 08:48 10:31 WBC 33.3 H RBC 2.70 L Hgb 7.9 L 8.0 L Hct 25.3 L 24.0 L MCH RDW 19.2 H Plt Count 476 H Lymph % (Auto) [place] % (Auto) [place] # Seg Neutrophils % Seg Neuts % (Manual) Lymphocytes % (Manual) Seg Neutrophils # Seg Neutrophils # Man Lymphocytes # (Manual) Monocytes # (Manual) Basophils # (Manual) PT INR APTT ABG pH ABG pO2 ABG HCO3 ABG O2 Saturation ABG Base Excess ABG Hemoglobin Oxyhemoglobin Sodium 153 H Potassium 2.5 L* Chloride 114.9 H Carbon Dioxide 20 L BUN 38 H Creatinine 1.4 H Glucose 177 H POC Glucose Lactic Acid Calcium Ionized Calcium Phosphorus Magnesium Total Bilirubin AST ALT Alkaline Phosphatase Ammonia Total Creatine Kinase CK-MB (CK-2) CK-MB (CK-2) Rel Index Total Protein Albumin Urine WBC (Auto) Salicylates Acetaminophen Plasma/Serum Alcohol Crossmatch 12/14/19 12/14/19 12/14/19 12:57 16:15 17:50 WBC RBC Hgb Hct MCH RDW Plt Count Lymph % (Auto) [place] % (Auto) [place] # Seg Neutrophils % Seg Neuts % (Manual) Lymphocytes % (Manual) Seg Neutrophils # Seg Neutrophils # Man Lymphocytes # (Manual) Monocytes # (Manual) Basophils # (Manual) PT INR APTT ABG pH ABG pO2 73.6 L ABG HCO3 ABG O2 Saturation ABG Base Excess ABG Hemoglobin 7.6 L Oxyhemoglobin 94.0 L Sodium Potassium Chloride Carbon Dioxide BUN Creatinine Glucose POC Glucose 174 H 150 H Lactic Acid Calcium Ionized Calcium Phosphorus Magnesium Total Bilirubin AST ALT Alkaline Phosphatase Ammonia Total Creatine Kinase CK-MB (CK-2) CK-MB (CK-2) Rel Index Total Protein Albumin Urine WBC (Auto) Salicylates Acetaminophen Plasma/Serum Alcohol Crossmatch 12/15/19 12/15/19 12/15/19 00:28 05:27 07:23 WBC 30.0 H RBC 3.11 L Hgb 8.6 L Hct 27.7 L MCH RDW 20.0 H Plt Count 473 H Lymph % (Auto) [place] % (Auto) [place] # Seg Neutrophils % Seg Neuts % (Manual) Lymphocytes % (Manual) Seg Neutrophils # Seg Neutrophils # Man Lymphocytes # (Manual) Monocytes # (Manual) Basophils # (Manual) PT INR APTT ABG pH ABG pO2 ABG HCO3 ABG O2 Saturation ABG Base Excess ABG Hemoglobin Oxyhemoglobin Sodium Potassium Chloride Carbon Dioxide BUN Creatinine Glucose POC Glucose 167 H 148 H Lactic Acid Calcium Ionized Calcium Phosphorus Magnesium Total Bilirubin AST ALT Alkaline Phosphatase Ammonia Total Creatine Kinase CK-MB (CK-2) CK-MB (CK-2) Rel Index Total Protein Albumin Urine WBC (Auto) Salicylates Acetaminophen Plasma/Serum Alcohol Crossmatch 12/15/19 12/15/19 12/15/19 07:23 12:21 17:41 WBC RBC Hgb Hct MCH RDW Plt Count Lymph % (Auto) [place] % (Auto) [place] # Seg Neutrophils % Seg Neuts % (Manual) Lymphocytes % (Manual) Seg Neutrophils # Seg Neutrophils # Man Lymphocytes # (Manual) Monocytes # (Manual) Basophils # (Manual) PT INR APTT ABG pH ABG pO2 ABG HCO3 ABG O2 Saturation ABG Base Excess ABG Hemoglobin Oxyhemoglobin Sodium 147 H Potassium 3.5 L D Chloride 111.2 H Carbon Dioxide 19 L BUN 29 H Creatinine Glucose 126 H POC Glucose 154 H 144 H Lactic Acid Calcium Ionized Calcium Phosphorus Magnesium Total Bilirubin AST ALT Alkaline Phosphatase Ammonia Total Creatine Kinase CK-MB (CK-2) CK-MB (CK-2) Rel Index Total Protein Albumin Urine WBC (Auto) Salicylates Acetaminophen Plasma/Serum Alcohol Crossmatch 12/16/19 12/16/19 12/16/19 00:22 05:30 05:44 WBC 30.8 H RBC 2.58 L Hgb 7.1 L Hct 22.7 L MCH RDW 19.6 H Plt Count 451 H Lymph % (Auto) [place] % (Auto) [place] # Seg Neutrophils % Seg Neuts % (Manual) Lymphocytes % (Manual) Seg Neutrophils # Seg Neutrophils # Man Lymphocytes # (Manual) Monocytes # (Manual) Basophils # (Manual) PT INR APTT ABG pH ABG pO2 ABG HCO3 ABG O2 Saturation ABG Base Excess ABG Hemoglobin Oxyhemoglobin Sodium Potassium Chloride Carbon Dioxide BUN Creatinine Glucose POC Glucose 139 H 126 H Lactic Acid Calcium Ionized Calcium Phosphorus Magnesium Total Bilirubin AST ALT Alkaline Phosphatase Ammonia Total Creatine Kinase CK-MB (CK-2) CK-MB (CK-2) Rel Index Total Protein Albumin Urine WBC (Auto) Salicylates Acetaminophen Plasma/Serum Alcohol Crossmatch 12/16/19 12/16/19 12/16/19 05:44 11:48 17:37 WBC RBC Hgb Hct MCH RDW Plt Count Lymph % (Auto) [place] % (Auto) [place] # Seg Neutrophils % Seg Neuts % (Manual) Lymphocytes % (Manual) Seg Neutrophils # Seg Neutrophils # Man Lymphocytes # (Manual) Monocytes # (Manual) Basophils # (Manual) PT INR APTT ABG pH ABG pO2 ABG HCO3 ABG O2 Saturation ABG Base Excess ABG Hemoglobin Oxyhemoglobin Sodium Potassium 3.4 L Chloride 109.2 H Carbon Dioxide 19 L BUN 27 H Creatinine Glucose 124 H POC Glucose 125 H 148 H Lactic Acid Calcium Ionized Calcium Phosphorus Magnesium Total Bilirubin AST ALT Alkaline Phosphatase Ammonia Total Creatine Kinase CK-MB (CK-2) CK-MB (CK-2) Rel Index Total Protein Albumin Urine WBC (Auto) Salicylates Acetaminophen Plasma/Serum Alcohol Crossmatch 12/16/19 12/17/19 12/17/19 23:43 05:28 12:47 WBC RBC Hgb Hct MCH RDW Plt Count Lymph % (Auto) [place] % (Auto) [place] # Seg Neutrophils % Seg Neuts % (Manual) Lymphocytes % (Manual) Seg Neutrophils # Seg Neutrophils # Man Lymphocytes # (Manual) Monocytes # (Manual) Basophils # (Manual) PT INR APTT ABG pH ABG pO2 ABG HCO3 ABG O2 Saturation ABG Base Excess ABG Hemoglobin Oxyhemoglobin Sodium Potassium Chloride Carbon Dioxide BUN Creatinine Glucose POC Glucose 142 H 140 H 125 H Lactic Acid Calcium Ionized Calcium Phosphorus Magnesium Total Bilirubin AST ALT Alkaline Phosphatase Ammonia Total Creatine Kinase CK-MB (CK-2) CK-MB (CK-2) Rel Index Total Protein Albumin Urine WBC (Auto) Salicylates Acetaminophen Plasma/Serum Alcohol Crossmatch 12/17/19 Unknown WBC RBC Hgb Hct MCH RDW Plt Count Lymph % (Auto) [place] % (Auto) [place] # Seg Neutrophils % Seg Neuts % (Manual) Lymphocytes % (Manual) Seg Neutrophils # Seg Neutrophils # Man Lymphocytes # (Manual) Monocytes # (Manual) Basophils # (Manual) PT INR APTT ABG pH ABG pO2 ABG HCO3 ABG O2 Saturation ABG Base Excess ABG Hemoglobin 5.0 L Oxyhemoglobin Sodium Potassium Chloride Carbon Dioxide BUN Creatinine Glucose POC Glucose Lactic Acid Calcium Ionized Calcium Phosphorus Magnesium Total Bilirubin AST ALT Alkaline Phosphatase Ammonia Total Creatine Kinase CK-MB (CK-2) CK-MB (CK-2) Rel Index Total Protein Albumin Urine WBC (Auto) Salicylates Acetaminophen Plasma/Serum Alcohol Crossmatch Chest x-ray: image reviewed (trach in good position; LLL infiltrate) Allied health notes reviewed: nursing
--- NOTE | 2019-12-17 14:46 | Progress Note ---
Assessment and Plan Cultures: 11/22/2019 urine culture:no significant growth 11/22/2019 tracheal aspirate culture: H. influenzae 12/13/2019 blood culture: MRSA 1 of 4 12/13/2019 sptum pending 12/16/2019 blood culture: pending A/P: 54-year-old female with hypertension, depression, tobacco use, alcohol abuse was brought into the emergency room on 11/22/2019 after she went into respiratory arrest at home requiring CPR by EMS: #Sepsis: fever better. Source MRSA bacteremia and likely MRSA pneumonia. UA showed pyuria. RUQ US showed no ascites. Completed 7 days of Ceftriaxone on 11/29/2019. #MRSA bacteremia: source ? pneumonia #Likely MRSA pneumonia: on vancomycin # acute respiratory failure: Possibly aspiration. No pneumonia seen. On mechanical ventilation. #Elevated LFTs, alcohol abuse, status post arrest requiring CPR: Trend LFTs. RUQ US showed no ascites. #Acute encephalopathy: Likely multifactorial from alcohol abuse, status post arrest, electrolyte abnormalities. #Diarrhea: likely combination of tube feeds and lactulose. now with BMS Recs: Continue vancomycin with PK consult trough level 10-20 Repeat TTE eval for vegetations stop cefepime. Follow up blood cultures. repeat blood cx monitor fever duration of vancomycin to be determined depending on blood culture clearance, repeat TTE Will follow Janice Haque MD Infectious Diseases [employer] Design Engineer [facility] ([facility] M [phone] O [phone] Subjective Date of service: 12/17/19 Principal diagnosis: Ac cardiopulmonary arrest; Ac hypoxemic resp failure; Acute encephalopathy Interval history: Remains intubated on the vent tachycardic on monitor, low grade fever 100.9 Objective - Exam Narrative Exam: limited Gen: intubated sedated Cardiovascular: S1, S2 normal Respiratory: Good air entry, clear to auscultation bilaterally GI: slightly distended, bowel sounds present. Rectal tube present with liquid stool Musculoskeletal: No pedal edema, no cyanosis. Skin: No rash or abscess Hem/Lymphatic: No palpable cervical or supraclavicular nodes. No lymphangitis Psych: no agitation. Neurological: comatose - Constitutional Vitals: Vital Signs Temp Pulse Resp BP Pulse Ox 98.2 F 112 H 25 H 115/71 99 12/17/19 13:37 12/17/19 14:00 12/17/19 14:00 12/17/19 14:00 12/17/19 14:00 Temperature -Last 24 Hours Temperature 98.2 F Temperature 100.9 F Temperature 97.8 F Temperature 98.9 F Temperature 98.9 F Temperature 98.7 F Temperature 99.3 F - Labs CBC & Chem 7: 12/16/19 05:44 12/16/19 05:44 Labs: Abnormal lab results 12/16/19 12/16/19 12/17/19 Range/Units 17:37 23:43 05:28 ABG Hemoglobin (12.0-16.0) gm/dl POC Glucose 148 H 142 H 140 H (70-105) 12/17/19 12/17/19 Range/Units 12:47 Unknown ABG Hemoglobin 5.0 L (12.0-16.0) gm/dl POC Glucose 125 H (70-105)
[2019-12-17 18:19] LABS: ABG Base Excess -0.4 mmol/L (-2.0-3.0); ABG HCO3 23.6 mmol/L (20.0-26.0); ABG Methemoglobin 0.5 % (0.0-1.5); ABG Oxygen Saturation 93.7 % (95.0-99.0); ABG PCO2 36.5 mm Hg; ABG PH 7.428 pH Units (7.350-7.450); ABG PO2 68.1 mm Hg (80.0-90.0)
[2019-12-17] MEDS: QUEtiapine 100 MG TAB PO SCH (21:27)
[2019-12-18 06:08] LABS: Hemoglobin 6.3 gm/dl (10.1-14.3); Mean Corpuscular HGB Conc 32 % (30-34); Mean Corpuscular Volume 86 fl (79-97); Platelet Count 497 K/mm3 (140-440); Red Blood Count 2.27 M/mm3 (3.65-5.03)
[2019-12-18 06:26] LABS: BUN/Creatinine Ratio 45; Blood Urea Nitrogen 27 mg/dL (7-17); Calcium 9.4 mg/dL (8.4-10.2); Hemolysis Index 1
[2019-12-18 06:43] LABS: Hematocrit 19.5 % (30.3-42.9)
[2019-12-18] MEDS: chlordiazePOXIDE 25 MG CAP PO SCH ×3 (07:20→21:35)
[2019-12-18] MEDS ORDERED: SODIUM CHLORIDE 0.9% 500 ML 500 ML IV ONE ×2 (10:00→16:20)
[2019-12-18] MEDS: SERTRALINE 25 MG TAB PO SCH (10:18)
[2019-12-18] MEDS: LANSOPRAZOLE 30 MG SOLUTAB FEEDTUBE SCH (10:18)
[2019-12-18] MEDS: levETIRAcetam 500 MG/5 ML ORAL LIQD PO SCH ×2 (10:18→21:36)
[2019-12-18] MEDS: TAMSULOSIN 0.4 MG CAP PO SCH (10:19)
[2019-12-18] MEDS: MIRTAZAPINE 30 MG TAB PO SCH (10:19)
[2019-12-18] MEDS: VANCOMYCIN/NS 1 GM/250 ML 1 GM/250 ML BAG IV SCH ×2 (10:19→21:37)
[2019-12-18] MEDS: LACTULOSE 20 GM/30 ML ORAL LIQD PO SCH ×2 (10:19→21:37)
[2019-12-18] MEDS: hydrOXYzine PAMOATE 25 MG CAP PO SCH ×2 (10:19→21:36)
[2019-12-18] MEDS: SENNOSIDES/DOCUSATE SODIUM 8.6/50 MG TAB PO SCH ×2 (10:20→21:37)
--- NOTE | 2019-12-18 12:09 | Progress Note ---
Assessment and Plan Cultures: 11/22/2019 urine culture:no significant growth 11/22/2019 tracheal aspirate culture: H. influenzae 12/13/2019 blood culture: MRSA 1 of 4 12/13/2019 sputum MSSA 12/16/2019 blood culture: no growth so far A/P: 54-year-old female with hypertension, depression, tobacco use, alcohol abuse was brought into the emergency room on 11/22/2019 after she went into respiratory arrest at home requiring CPR by EMS: #Sepsis: fever better. Source MRSA bacteremia and MSSA pneumonia. UA showed pyuria. RUQ US showed no ascites. Completed 7 days of Ceftriaxone on 11/29/2019. #MRSA bacteremia: source ? pneumonia. Repeat TTE negative for vegetation. #MSSA pneumonia: on vancomycin #Acute respiratory failure: Possibly aspiration. No pneumonia seen. On mechanical ventilation. #Elevated LFTs, alcohol abuse, status post arrest requiring CPR: Trend LFTs. RUQ US showed no ascites. #Acute encephalopathy: Likely multifactorial from alcohol abuse, status post arrest, electrolyte abnormalities. #Diarrhea: likely combination of tube feeds and lactulose. now with BMS Recs: Monitor fever Continue vancomycin with PK consult trough level 10-20 monitor fever Anticipate to d/c on vancomycin 1 gm IV q 12 hour total 2 week till 12/30/2019. Keep vancomycin trough 10-20. Sent to outpatient case manager. Will follow Janice Haque MD Infectious Diseases [facility] M [phone] O [phone] Subjective Date of service: 12/18/19 Principal diagnosis: Ac cardiopulmonary arrest; Ac hypoxemic resp failure; Acute encephalopathy Interval history: Remains intubated on the vent tachycardic on monitor, low grade fever 101 Objective - Exam Narrative Exam: limited Gen: intubated sedated Cardiovascular: S1, S2 normal Respiratory: Good air entry, clear to auscultation bilaterally GI: slightly distended, bowel sounds present. Musculoskeletal: No pedal edema, no cyanosis. Skin: No rash or abscess Hem/Lymphatic: No palpable cervical or supraclavicular nodes. No lymphangitis Psych: no agitation. Neurological: comatose - Constitutional Vitals: Vital Signs Temp Pulse Resp BP Pulse Ox 101.0 F H 134 H 25 H 142/81 96 12/18/19 04:41 12/18/19 09:00 12/18/19 09:00 12/18/19 09:00 12/18/19 09:00 Temperature -Last 24 Hours Temperature 101.0 F Temperature 99.7 F Temperature 100.0 F Temperature 98.2 F Temperature 98.2 F - Labs CBC & Chem 7: 12/18/19 04:53 12/18/19 04:53 Labs: Abnormal lab results 12/17/19 12/17/19 12/17/19 Range/Units 12:47 17:05 18:00 WBC (4.5-11.0) K/mm3 RBC (3.65-5.03) M/mm3 Hgb (10.1-14.3) gm/dl Hct (30.3-42.9) % RDW (13.2-15.2) % Plt Count (140-440) K/mm3 ABG pO2 68.1 L (80.0-90.0) mm Hg ABG O2 Saturation 93.7 L (95.0-99.0) % Oxyhemoglobin 91.7 L (95.0-99.0) % Chloride (98-107) mmol/L Carbon Dioxide (22-30) mmol/L BUN (7-17) mg/dL Creatinine (0.7-1.2) mg/dL Glucose (65-100) mg/dL POC Glucose 125 H 140 H (70-105) 12/18/19 12/18/19 12/18/19 Range/Units 00:16 04:53 04:53 WBC 28.6 H (4.5-11.0) K/mm3 RBC 2.27 L (3.65-5.03) M/mm3 Hgb 6.3 L (10.1-14.3) gm/dl Hct 19.5 L* (30.3-42.9) % RDW 20.0 H (13.2-15.2) % Plt Count 497 H (140-440) K/mm3 ABG pO2 (80.0-90.0) mm Hg ABG O2 Saturation (95.0-99.0) % Oxyhemoglobin (95.0-99.0) % Chloride 107.9 H (98-107) mmol/L Carbon Dioxide 20 L (22-30) mmol/L BUN 27 H (7-17) mg/dL Creatinine 0.6 L (0.7-1.2) mg/dL Glucose 116 H (65-100) mg/dL POC Glucose 123 H (70-105) 12/18/19 Range/Units 06:38 WBC (4.5-11.0) K/mm3 RBC (3.65-5.03) M/mm3 Hgb (10.1-14.3) gm/dl Hct (30.3-42.9) % RDW (13.2-15.2) % Plt Count (140-440) K/mm3 ABG pO2 (80.0-90.0) mm Hg ABG O2 Saturation (95.0-99.0) % Oxyhemoglobin (95.0-99.0) % Chloride (98-107) mmol/L Carbon Dioxide (22-30) mmol/L BUN (7-17) mg/dL Creatinine (0.7-1.2) mg/dL Glucose (65-100) mg/dL POC Glucose 120 H (70-105)
[2019-12-18] MEDS: hydrALAZINE 20 MG/1 ML INJ IV PRN (13:25)
[2019-12-18] MEDS: MORPHINE 2 MG/1 ML INJ IV PRN (13:25)
--- NOTE | 2019-12-18 13:45 | Progress Note ---
Assessment and Plan Acute cardiopulmonary arrest with ROSC Acute hypoxemic respiratory failure on MVS Acute metabolic-toxic encephalopathy Metabolic acidosis/alcoholic acidosis/Lactic acidosis Ischemic hepatitis Leucocytosis with lactic acidosis Tobacco use disorder ALcohol use Disorder Hypokalemia High grade fevers - begin Propofol for sedation re: increased work of breathing - get KUB with contrast to evaluate abdominal distension and PEG location - follow C&S (Fever spikes improving but growing MRSA in blood and MSSA trach aspirate) - continue Antibiotics per ID recommendations; de-escalate based on HILARIO /sensitivities / clinical progress - reduce free water flushes as hypernatremia corrected - continue bronchodilators with routine trach care and pulmonary hygiene per RT - VAP bundle addressed (continue aspiration precautions, HOB > 40) - continue daily SAT's and assessment for readiness for SBT (For PSV trial today) - continue to rest on AC mode qhs - continue Seroquel for tentative delirium and to spare IV sedation - continue Librium at 75 mg po q8h - continue Reglan for G.I. motility - s/p CIWA protocol - Continue Intermittent sedation until patient's neurologic state can be better evaluated - begin Seroquel for agitation / to spare IV sedatives - Continue VTE and Stress ulcer prophylaxis - Continue enteric nutritional support. Monitor glycemic control, with target blood glucose 140-180 mg/dL while critically ill (Avoid hypoglycemia) - Continue daily SAT assessment as tolerated - Continue to wean supplemental oxygen for target O2 sat's > 90% - ABG and CXR prn - Continue to trend leukocytosis and lactic acidosis - Continue to treat for hepatic encephalopathy- especially with elevated ammonia levels- lactulose - Continue thiamine, multivitamin and electrolyte replacement - Continue to avoid nephrotoxins, adjust all medications fro GFR and CrCL - Continue to avoid benzodiazepines , as much as possible, to reduce the possibility of delirium - Continue prn analgesia per CPOT score - Continue to maintain of sleep-wake cycle, avoid delirium - PT/OT/ROM exercises- awaiting PT/OT evaluation - Continue mobility protocol and skin assessment per protocol for pressure ulcer prevention - Continue to monitor for clinical seizures - Continue Nicotine withdrawal precautions, alcohol withdrawal precautions - continue other care per attending / other consultants ..... re-evaluate in am & prn CONDITION: CRITICAL PROGNOSIS: GUARDED CODE STATUS: FULL CODE The high probability of a clinically significant, sudden or life-threatening deterioration of the [respiratory, cardiovascular,GI/hepatology] system(s) required my full and direct attention, intervention and personal management. The aggregate critical care time was [34] minutes without overlap. Time includes spent on; [x] Data Review and interpretation [x] Patient assessment and monitoring of vital signs [x] Documentation [x] Medication orders and management Subjective Date of service: 12/18/19 Principal diagnosis: Ac cardiopulmonary arrest; Ac hypoxemic resp failure; Acute encephalopathy Interval history: Patient is seen today for: Acute cardiopulmonary arrest with ROSC; Acute hypoxemic respiratory failure; Acute metabolic-toxic encephalopathy; Ischemic hepatitis; Leucocytosis with lactic acidosis; Tobacco use disorder; Alcohol use Disorder; Hypokalemia; High grade fevers Seen and examined at bedside; 24hour events reviewed; nursing and respiratory care staff consulted; no adverse overnight events reported to me; resting peacefully in bed; remains a difficult wean; AMS is persistent Objective Vital Signs - 12hr 12/18/19 12/18/19 12/18/19 02:00 03:00 03:10 Temperature Pulse Rate 127 H 125 H Pulse Rate [ From Monitor] Respiratory 26 H 24 Rate Blood Pressure 126/80 129/81 O2 Sat by Pulse 98 97 Oximetry O2 Sat by Pulse 97 Oximetry [ Assessment] 12/18/19 12/18/19 12/18/19 04:00 04:20 04:41 Temperature 101.0 F H Pulse Rate 129 H 130 H Pulse Rate [ 115 H From Monitor] Respiratory 26 H Rate Blood Pressure 134/81 137/82 O2 Sat by Pulse 98 97 Oximetry O2 Sat by Pulse Oximetry [ Assessment] 12/18/19 12/18/19 12/18/19 05:00 06:00 07:00 Temperature Pulse Rate 130 H 131 H 132 H Pulse Rate [ From Monitor] Respiratory 24 25 H 25 H Rate Blood Pressure 144/83 139/86 148/90 O2 Sat by Pulse 97 97 97 Oximetry O2 Sat by Pulse Oximetry [ Assessment] 12/18/19 12/18/19 12/18/19 08:00 08:15 09:00 Temperature 100 F H Pulse Rate 133 H 134 H Pulse Rate [ From Monitor] Respiratory 25 H 25 H Rate Blood Pressure 149/87 142/81 O2 Sat by Pulse 98 98 96 Oximetry O2 Sat by Pulse Oximetry [ Assessment] 12/18/19 12/18/19 12:00 13:25 Temperature 98.7 F Pulse Rate 155 H Pulse Rate [ From Monitor] Respiratory Rate Blood Pressure 172/89 O2 Sat by Pulse Oximetry O2 Sat by Pulse Oximetry [ Assessment] Constitutional: no acute distress, other (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, with midline tracheostomy and mild dys-synchrony) Eyes: non-icteric ENT: oropharynx moist, other (s/p trach) Neck: supple, no lymphadenopathy, no JVD Effort: mildly labored Ascultation: Bilateral: diminished breath sounds, rhonchi Percussion: Bilateral: not dull Cardiovascular: regular rate and rhythm (tachycardia), other (S1,S2) Gastrointestinal: normoactive bowel sounds, soft, non-tender, non-distended Integumentary: normal Extremities: no cyanosis, no edema, pulses normal, no ischemia or petechiae Neurologic: unable to assess, other (awake but not tracking voice ) Psychiatric: other (Psychiatric: Unable to assess) CBC and BMP: 12/19/19 03:37 12/19/19 03:37 ABG, PT/INR, D-dimer: ABG ABG pH 7.446 pH Units (7.350-7.450) 12/17/19 Unknown ABG pCO2 35.6 mm Hg 12/17/19 Unknown ABG pO2 80.9 mm Hg (80.0-90.0) 12/17/19 Unknown ABG O2 Saturation 97.1 % (95.0-99.0) 12/17/19 Unknown PT/INR, D-dimer PT 17.0 Sec. (12.2-14.9) H 11/23/19 03:47 INR 1.36 (0.87-1.13) H 11/23/19 03:47 Abnormal lab findings: Abnormal Labs 11/22/19 11/22/19 11/22/19 23:17 23:18 23:27 WBC 21.2 H RBC 3.59 L Hgb 9.8 L Hct MCH 27 L RDW 18.6 H Plt Count 454 H Lymph % (Auto) Hall % (Auto) Hall # Seg Neutrophils % Seg Neuts % (Manual) 86.0 H Lymphocytes % (Manual) 9.0 L Seg Neutrophils # Seg Neutrophils # Man 18.2 H Lymphocytes # (Manual) Monocytes # (Manual) 1.1 H Basophils # (Manual) PT INR APTT ABG pH ABG pO2 ABG HCO3 ABG O2 Saturation ABG Base Excess ABG Hemoglobin Oxyhemoglobin Sodium Potassium Chloride Carbon Dioxide BUN Creatinine Glucose POC Glucose 53 L Lactic Acid Calcium Ionized Calcium Phosphorus Magnesium Total Bilirubin AST ALT Alkaline Phosphatase Ammonia Total Creatine Kinase CK-MB (CK-2) CK-MB (CK-2) Rel Index Total Protein Albumin Urine WBC (Auto) 40.0 H Salicylates Acetaminophen Plasma/Serum Alcohol Crossmatch 11/22/19 11/22/19 11/22/19 23:27 23:27 23:27 WBC RBC Hgb Hct MCH RDW Plt Count Lymph % (Auto) Hall % (Auto) Hall # Seg Neutrophils % Seg Neuts % (Manual) Lymphocytes % (Manual) Seg Neutrophils # Seg Neutrophils # Man Lymphocytes # (Manual) Monocytes # (Manual) Basophils # (Manual) PT INR APTT ABG pH ABG pO2 ABG HCO3 ABG O2 Saturation ABG Base Excess ABG Hemoglobin Oxyhemoglobin Sodium Potassium 2.4 L* Chloride 85.1 L Carbon Dioxide 19 L BUN Creatinine 0.5 L Glucose 261 H POC Glucose Lactic Acid Calcium Ionized Calcium Phosphorus Magnesium Total Bilirubin AST 609 H ALT 152 H Alkaline Phosphatase 160 H Ammonia 117.0 H Total Creatine Kinase 139 H CK-MB (CK-2) 8.3 H CK-MB (CK-2) Rel Index 5.9 H Total Protein Albumin 3.6 L Urine WBC (Auto) Salicylates < 0.3 L Acetaminophen Plasma/Serum Alcohol Crossmatch 11/22/19 11/22/19 11/23/19 23:27 23:27 01:10 WBC RBC Hgb Hct MCH RDW Plt Count Lymph % (Auto) Hall % (Auto) Hall # Seg Neutrophils % Seg Neuts % (Manual) Lymphocytes % (Manual) Seg Neutrophils # Seg Neutrophils # Man Lymphocytes # (Manual) Monocytes # (Manual) Basophils # (Manual) PT INR APTT ABG pH 7.273 L ABG pO2 209.7 H ABG HCO3 ABG O2 Saturation 99.2 H ABG Base Excess -3.9 L ABG Hemoglobin 10.6 L Oxyhemoglobin 93.9 L Sodium Potassium Chloride Carbon Dioxide BUN Creatinine Glucose POC Glucose Lactic Acid Calcium Ionized Calcium Phosphorus Magnesium Total Bilirubin AST ALT Alkaline Phosphatase Ammonia Total Creatine Kinase CK-MB (CK-2) CK-MB (CK-2) Rel Index Total Protein Albumin Urine WBC (Auto) Salicylates Acetaminophen < 5.0 L Plasma/Serum Alcohol 0.08 H Crossmatch 11/23/19 11/23/19 11/23/19 01:19 01:19 03:47 WBC RBC Hgb Hct MCH RDW Plt Count Lymph % (Auto) Hall % (Auto) Hall # Seg Neutrophils % Seg Neuts % (Manual) Lymphocytes % (Manual) Seg Neutrophils # Seg Neutrophils # Man Lymphocytes # (Manual) Monocytes # (Manual) Basophils # (Manual) PT 16.3 H INR 1.29 H APTT ABG pH ABG pO2 ABG HCO3 ABG O2 Saturation ABG Base Excess ABG Hemoglobin Oxyhemoglobin Sodium Potassium Chloride Carbon Dioxide BUN Creatinine Glucose POC Glucose Lactic Acid 2.10 H* 5.00 H* Calcium Ionized Calcium Phosphorus Magnesium Total Bilirubin AST ALT Alkaline Phosphatase Ammonia Total Creatine Kinase CK-MB (CK-2) CK-MB (CK-2) Rel Index Total Protein Albumin Urine WBC (Auto) Salicylates Acetaminophen Plasma/Serum Alcohol Crossmatch 11/23/19 11/23/19 11/23/19 03:47 03:47 04:53 WBC RBC Hgb 9.4 L Hct MCH RDW Plt Count Lymph % (Auto) Hall % (Auto) Hall # Seg Neutrophils % Seg Neuts % (Manual) Lymphocytes % (Manual) Seg Neutrophils # Seg Neutrophils # Man Lymphocytes # (Manual) Monocytes # (Manual) Basophils # (Manual) PT 17.0 H INR 1.36 H APTT 128.2 H* ABG pH ABG pO2 ABG HCO3 ABG O2 Saturation ABG Base Excess ABG Hemoglobin Oxyhemoglobin Sodium Potassium Chloride Carbon Dioxide 18 L BUN Creatinine 0.5 L Glucose 105 H POC Glucose Lactic Acid Calcium 8.3 L Ionized Calcium Phosphorus 2.40 L Magnesium Total Bilirubin 1.30 H AST 761 H ALT 158 H Alkaline Phosphatase 143 H Ammonia Total Creatine Kinase CK-MB (CK-2) CK-MB (CK-2) Rel Index Total Protein Albumin 2.8 L Urine WBC (Auto) Salicylates Acetaminophen Plasma/Serum Alcohol Crossmatch 11/23/19 11/23/19 11/23/19 05:12 06:32 06:32 WBC 16.8 H RBC 3.31 L Hgb 8.9 L Hct 28.7 L MCH 27 L RDW 18.6 H Plt Count Lymph % (Auto) Hall % (Auto) Hall # Seg Neutrophils % Seg Neuts % (Manual) 94.0 H Lymphocytes % (Manual) 1.0 L Seg Neutrophils # Seg Neutrophils # Man 15.8 H Lymphocytes # (Manual) 0.2 L Monocytes # (Manual) Basophils # (Manual) PT INR APTT ABG pH ABG pO2 ABG HCO3 ABG O2 Saturation ABG Base Excess -3.2 L ABG Hemoglobin 9.0 L Oxyhemoglobin 93.6 L Sodium Potassium Chloride Carbon Dioxide BUN Creatinine Glucose POC Glucose Lactic Acid Calcium Ionized Calcium 4.5 L Phosphorus Magnesium Total Bilirubin AST ALT Alkaline Phosphatase Ammonia Total Creatine Kinase CK-MB (CK-2) CK-MB (CK-2) Rel Index Total Protein Albumin Urine WBC (Auto) Salicylates Acetaminophen Plasma/Serum Alcohol Crossmatch 11/23/19 11/24/19 11/24/19 06:32 04:35 04:35 WBC RBC Hgb Hct MCH RDW Plt Count Lymph % (Auto) Hall % (Auto) Hall # Seg Neutrophils % Seg Neuts % (Manual) Lymphocytes % (Manual) Seg Neutrophils # Seg Neutrophils # Man Lymphocytes # (Manual) Monocytes # (Manual) Basophils # (Manual) PT INR APTT ABG pH ABG pO2 ABG HCO3 ABG O2 Saturation ABG Base Excess ABG Hemoglobin Oxyhemoglobin Sodium Potassium Chloride Carbon Dioxide BUN Creatinine Glucose POC Glucose Lactic Acid 3.30 H* Calcium Ionized Calcium Phosphorus Magnesium 1.40 L Total Bilirubin AST ALT Alkaline Phosphatase Ammonia 98.0 H Total Creatine Kinase CK-MB (CK-2) CK-MB (CK-2) Rel Index Total Protein Albumin Urine WBC (Auto) Salicylates Acetaminophen Plasma/Serum Alcohol Crossmatch 11/24/19 11/25/19 11/25/19 05:22 04:34 05:05 WBC 17.3 H RBC 2.88 L Hgb 7.8 L Hct 24.6 L MCH 27 L RDW 18.5 H Plt Count Lymph % (Auto) 7.7 L Hall % (Auto) 9.7 H Hall # 1.7 H Seg Neutrophils % 82.2 H Seg Neuts % (Manual) Lymphocytes % (Manual) Seg Neutrophils # 14.2 H Seg Neutrophils # Man Lymphocytes # (Manual) Monocytes # (Manual) Basophils # (Manual) PT INR APTT ABG pH 7.475 H ABG pO2 ABG HCO3 29.4 H 32.3 H ABG O2 Saturation ABG Base Excess 5.4 H 6.9 H ABG Hemoglobin 9.0 L 10.6 L Oxyhemoglobin 94.3 L Sodium Potassium Chloride Carbon Dioxide BUN Creatinine Glucose POC Glucose Lactic Acid Calcium Ionized Calcium Phosphorus Magnesium Total Bilirubin AST ALT Alkaline Phosphatase Ammonia Total Creatine Kinase CK-MB (CK-2) CK-MB (CK-2) Rel Index Total Protein Albumin Urine WBC (Auto) Salicylates Acetaminophen Plasma/Serum Alcohol Crossmatch 11/25/19 11/25/19 11/26/19 05:05 22:46 03:31 WBC RBC Hgb Hct MCH RDW Plt Count Lymph % (Auto) Hall % (Auto) Hall # Seg Neutrophils % Seg Neuts % (Manual) Lymphocytes % (Manual) Seg Neutrophils # Seg Neutrophils # Man Lymphocytes # (Manual) Monocytes # (Manual) Basophils # (Manual) PT INR APTT ABG pH 7.459 H ABG pO2 ABG HCO3 34.2 H ABG O2 Saturation ABG Base Excess 9.4 H ABG Hemoglobin 7.6 L Oxyhemoglobin 94.8 L Sodium 152 H D 147 H Potassium 2.3 L* D 2.8 L* D Chloride 107.8 H Carbon Dioxide 31 H D 33 H BUN Creatinine 0.6 L 0.6 L Glucose 148 H 177 H POC Glucose Lactic Acid Calcium Ionized Calcium Phosphorus Magnesium Total Bilirubin AST 105 H ALT 71 H Alkaline Phosphatase 155 H Ammonia Total Creatine Kinase CK-MB (CK-2) CK-MB (CK-2) Rel Index Total Protein 5.2 L D Albumin 2.9 L Urine WBC (Auto) Salicylates Acetaminophen Plasma/Serum Alcohol Crossmatch 11/26/19 11/26/19 11/27/19 08:24 08:24 04:20 WBC 12.0 H RBC 3.00 L Hgb 8.0 L 9.3 L Hct 25.9 L 29.7 L MCH 27 L RDW 18.5 H Plt Count Lymph % (Auto) Hall % (Auto) Hall # Seg Neutrophils % Seg Neuts % (Manual) 89.0 H Lymphocytes % (Manual) 4.0 L Seg Neutrophils # Seg Neutrophils # Man 10.7 H Lymphocytes # (Manual) 0.5 L Monocytes # (Manual) Basophils # (Manual) PT INR APTT ABG pH ABG pO2 ABG HCO3 ABG O2 Saturation ABG Base Excess ABG Hemoglobin Oxyhemoglobin Sodium 146 H Potassium 3.4 L D Chloride Carbon Dioxide BUN Creatinine 0.5 L Glucose 165 H POC Glucose Lactic Acid Calcium Ionized Calcium Phosphorus Magnesium Total Bilirubin AST 57 H ALT Alkaline Phosphatase 166 H Ammonia Total Creatine Kinase CK-MB (CK-2) CK-MB (CK-2) Rel Index Total Protein Albumin 2.9 L Urine WBC (Auto) Salicylates Acetaminophen Plasma/Serum Alcohol Crossmatch 11/27/19 11/27/19 11/27/19 04:28 04:28 04:42 WBC RBC Hgb Hct MCH RDW Plt Count Lymph % (Auto) Hall % (Auto) Hall # Seg Neutrophils % Seg Neuts % (Manual) Lymphocytes % (Manual) Seg Neutrophils # Seg Neutrophils # Man Lymphocytes # (Manual) Monocytes # (Manual) Basophils # (Manual) PT INR APTT ABG pH 7.470 H ABG pO2 74.0 L ABG HCO3 33.8 H ABG O2 Saturation ABG Base Excess 9.1 H ABG Hemoglobin 8.7 L Oxyhemoglobin 94.7 L Sodium 146 H Potassium 2.9 L* Chloride Carbon Dioxide BUN 25 H Creatinine Glucose 213 H POC Glucose Lactic Acid Calcium Ionized Calcium Phosphorus 1.00 L Magnesium Total Bilirubin AST ALT Alkaline Phosphatase Ammonia Total Creatine Kinase CK-MB (CK-2) CK-MB (CK-2) Rel Index Total Protein Albumin Urine WBC (Auto) Salicylates Acetaminophen Plasma/Serum Alcohol Crossmatch 11/27/19 11/27/19 11/27/19 05:37 12:20 15:46 WBC RBC Hgb Hct MCH RDW Plt Count Lymph % (Auto) Hall % (Auto) Hall # Seg Neutrophils % Seg Neuts % (Manual) Lymphocytes % (Manual) Seg Neutrophils # Seg Neutrophils # Man Lymphocytes # (Manual) Monocytes # (Manual) Basophils # (Manual) PT INR APTT ABG pH ABG pO2 ABG HCO3 ABG O2 Saturation ABG Base Excess ABG Hemoglobin Oxyhemoglobin Sodium 146 H Potassium 3.5 L D Chloride Carbon Dioxide BUN 24 H Creatinine 0.6 L Glucose 187 H POC Glucose 117 H 220 H Lactic Acid Calcium Ionized Calcium Phosphorus Magnesium Total Bilirubin AST ALT Alkaline Phosphatase Ammonia Total Creatine Kinase CK-MB (CK-2) CK-MB (CK-2) Rel Index Total Protein Albumin Urine WBC (Auto) Salicylates Acetaminophen Plasma/Serum Alcohol Crossmatch 11/27/19 11/28/19 11/28/19 17:28 05:00 05:02 WBC RBC Hgb Hct MCH RDW Plt Count Lymph % (Auto) Hall % (Auto) Hall # Seg Neutrophils % Seg Neuts % (Manual) Lymphocytes % (Manual) Seg Neutrophils # Seg Neutrophils # Man Lymphocytes # (Manual) Monocytes # (Manual) Basophils # (Manual) PT INR APTT ABG pH ABG pO2 72.4 L ABG HCO3 33.6 H ABG O2 Saturation 94.1 L ABG Base Excess 7.3 H ABG Hemoglobin Oxyhemoglobin 91.8 L Sodium 146 H Potassium 3.3 L Chloride Carbon Dioxide BUN 25 H Creatinine 0.6 L Glucose 176 H POC Glucose 198 H Lactic Acid Calcium Ionized Calcium Phosphorus Magnesium Total Bilirubin AST ALT Alkaline Phosphatase Ammonia Total Creatine Kinase CK-MB (CK-2) CK-MB (CK-2) Rel Index Total Protein Albumin Urine WBC (Auto) Salicylates Acetaminophen Plasma/Serum Alcohol Crossmatch 11/28/19 11/28/19 11/29/19 05:02 18:55 10:43 WBC 15.2 H 19.0 H RBC 3.06 L 3.01 L Hgb 8.3 L 8.3 L Hct 27.0 L 26.4 L MCH 27 L RDW 19.0 H 19.7 H Plt Count 479 H 611 H Lymph % (Auto) Hall % (Auto) Hall # Seg Neutrophils % Seg Neuts % (Manual) 92.0 H Lymphocytes % (Manual) 2.0 L Seg Neutrophils # Seg Neutrophils # Man 14.0 H Lymphocytes # (Manual) 0.3 L Monocytes # (Manual) Basophils # (Manual) PT INR APTT ABG pH ABG pO2 ABG HCO3 ABG O2 Saturation ABG Base Excess ABG Hemoglobin Oxyhemoglobin Sodium Potassium Chloride Carbon Dioxide BUN Creatinine Glucose POC Glucose 138 H Lactic Acid Calcium Ionized Calcium Phosphorus Magnesium Total Bilirubin AST ALT Alkaline Phosphatase Ammonia Total Creatine Kinase CK-MB (CK-2) CK-MB (CK-2) Rel Index Total Protein Albumin Urine WBC (Auto) Salicylates Acetaminophen Plasma/Serum Alcohol Crossmatch 11/29/19 11/29/19 11/29/19 10:43 12:27 19:25 WBC RBC Hgb Hct MCH RDW Plt Count Lymph % (Auto) Hall % (Auto) Hall # Seg Neutrophils % Seg Neuts % (Manual) Lymphocytes % (Manual) Seg Neutrophils # Seg Neutrophils # Man Lymphocytes # (Manual) Monocytes # (Manual) Basophils # (Manual) PT INR APTT ABG pH ABG pO2 ABG HCO3 ABG O2 Saturation ABG Base Excess ABG Hemoglobin Oxyhemoglobin Sodium Potassium 2.8 L* Chloride Carbon Dioxide BUN 20 H Creatinine 0.5 L Glucose 121 H POC Glucose 128 H 120 H Lactic Acid Calcium Ionized Calcium Phosphorus Magnesium Total Bilirubin AST ALT Alkaline Phosphatase Ammonia Total Creatine Kinase CK-MB (CK-2) CK-MB (CK-2) Rel Index Total Protein Albumin Urine WBC (Auto) Salicylates Acetaminophen Plasma/Serum Alcohol Crossmatch 11/29/19 11/30/19 11/30/19 23:46 04:10 05:02 WBC RBC Hgb Hct MCH RDW Plt Count Lymph % (Auto) Hall % (Auto) Hall # Seg Neutrophils % Seg Neuts % (Manual) Lymphocytes % (Manual) Seg Neutrophils # Seg Neutrophils # Man Lymphocytes # (Manual) Monocytes # (Manual) Basophils # (Manual) PT INR APTT ABG pH ABG pO2 76.3 L ABG HCO3 32.5 H ABG O2 Saturation ABG Base Excess 6.9 H ABG Hemoglobin 8.0 L Oxyhemoglobin 92.6 L Sodium Potassium Chloride Carbon Dioxide BUN Creatinine Glucose POC Glucose 116 H 128 H Lactic Acid Calcium Ionized Calcium Phosphorus Magnesium Total Bilirubin AST ALT Alkaline Phosphatase Ammonia Total Creatine Kinase CK-MB (CK-2) CK-MB (CK-2) Rel Index Total Protein Albumin Urine WBC (Auto) Salicylates Acetaminophen Plasma/Serum Alcohol Crossmatch 11/30/19 11/30/19 11/30/19 05:25 05:25 12:59 WBC 18.4 H RBC 3.10 L Hgb 8.5 L Hct 27.5 L MCH 27 L RDW 20.9 H Plt Count 691 H Lymph % (Auto) 7.1 L Hall % (Auto) 7.7 H Hall # 1.4 H Seg Neutrophils % 83.4 H Seg Neuts % (Manual) Lymphocytes % (Manual) Seg Neutrophils # 15.4 H Seg Neutrophils # Man Lymphocytes # (Manual) Monocytes # (Manual) Basophils # (Manual) PT INR APTT ABG pH ABG pO2 ABG HCO3 ABG O2 Saturation ABG Base Excess ABG Hemoglobin Oxyhemoglobin Sodium 146 H Potassium Chloride 107.2 H Carbon Dioxide BUN Creatinine 0.5 L Glucose 132 H POC Glucose 124 H Lactic Acid Calcium Ionized Calcium Phosphorus Magnesium Total Bilirubin AST 246 H ALT 274 H Alkaline Phosphatase 203 H Ammonia Total Creatine Kinase CK-MB (CK-2) CK-MB (CK-2) Rel Index Total Protein 5.4 L Albumin 2.9 L Urine WBC (Auto) Salicylates Acetaminophen Plasma/Serum Alcohol Crossmatch 11/30/19 12/01/19 12/01/19 17:53 00:05 05:10 WBC RBC Hgb Hct MCH RDW Plt Count Lymph % (Auto) Hall % (Auto) Hall # Seg Neutrophils % Seg Neuts % (Manual) Lymphocytes % (Manual) Seg Neutrophils # Seg Neutrophils # Man Lymphocytes # (Manual) Monocytes # (Manual) Basophils # (Manual) PT INR APTT ABG pH ABG pO2 ABG HCO3 ABG O2 Saturation ABG Base Excess ABG Hemoglobin Oxyhemoglobin Sodium Potassium Chloride Carbon Dioxide BUN Creatinine Glucose POC Glucose 113 H 143 H 145 H Lactic Acid Calcium Ionized Calcium Phosphorus Magnesium Total Bilirubin AST ALT Alkaline Phosphatase Ammonia Total Creatine Kinase CK-MB (CK-2) CK-MB (CK-2) Rel Index Total Protein Albumin Urine WBC (Auto) Salicylates Acetaminophen Plasma/Serum Alcohol Crossmatch 12/01/19 12/01/19 12/01/19 05:33 08:23 08:23 WBC 22.7 H RBC 2.88 L Hgb 7.9 L Hct 25.2 L MCH 27 L RDW 21.0 H Plt Count 732 H Lymph % (Auto) Hall % (Auto) Hall # Seg Neutrophils % Seg Neuts % (Manual) 91.0 H Lymphocytes % (Manual) 3.0 L Seg Neutrophils # Seg Neutrophils # Man 20.7 H Lymphocytes # (Manual) 0.7 L Monocytes # (Manual) 1.1 H Basophils # (Manual) PT INR APTT ABG pH ABG pO2 68.6 L ABG HCO3 34.1 H ABG O2 Saturation ABG Base Excess 9.0 H ABG Hemoglobin 6.5 L Oxyhemoglobin 94.7 L Sodium Potassium Chloride Carbon Dioxide BUN Creatinine 0.5 L Glucose 125 H POC Glucose Lactic Acid Calcium Ionized Calcium Phosphorus Magnesium Total Bilirubin AST ALT Alkaline Phosphatase Ammonia Total Creatine Kinase CK-MB (CK-2) CK-MB (CK-2) Rel Index Total Protein Albumin Urine WBC (Auto) Salicylates Acetaminophen Plasma/Serum Alcohol Crossmatch 12/01/19 12/01/19 12/01/19 13:21 17:54 20:59 WBC RBC Hgb Hct MCH RDW Plt Count Lymph % (Auto) Hall % (Auto) Hall # Seg Neutrophils % Seg Neuts % (Manual) Lymphocytes % (Manual) Seg Neutrophils # Seg Neutrophils # Man Lymphocytes # (Manual) Monocytes # (Manual) Basophils # (Manual) PT INR APTT ABG pH ABG pO2 78.3 L ABG HCO3 33.8 H ABG O2 Saturation 94.9 L ABG Base Excess 7.9 H ABG Hemoglobin 11.5 L Oxyhemoglobin 92.3 L Sodium Potassium Chloride Carbon Dioxide BUN Creatinine Glucose POC Glucose 111 H 115 H Lactic Acid Calcium Ionized Calcium Phosphorus Magnesium Total Bilirubin AST ALT Alkaline Phosphatase Ammonia Total Creatine Kinase CK-MB (CK-2) CK-MB (CK-2) Rel Index Total Protein Albumin Urine WBC (Auto) Salicylates Acetaminophen Plasma/Serum Alcohol Crossmatch 12/02/19 12/03/19 12/04/19 12:55 20:00 04:26 WBC 15.2 H RBC 2.69 L Hgb 7.4 L Hct 23.6 L MCH 27 L RDW 19.9 H Plt Count 838 H Lymph % (Auto) Hall % (Auto) Hall # Seg Neutrophils % Seg Neuts % (Manual) Lymphocytes % (Manual) Seg Neutrophils # Seg Neutrophils # Man Lymphocytes # (Manual) Monocytes # (Manual) Basophils # (Manual) PT INR APTT ABG pH ABG pO2 68.3 L ABG HCO3 33.5 H ABG O2 Saturation 93.5 L ABG Base Excess 8.4 H ABG Hemoglobin 7.3 L Oxyhemoglobin 90.9 L Sodium Potassium Chloride Carbon Dioxide BUN Creatinine Glucose POC Glucose 107 H Lactic Acid Calcium Ionized Calcium Phosphorus Magnesium Total Bilirubin AST ALT Alkaline Phosphatase Ammonia Total Creatine Kinase CK-MB (CK-2) CK-MB (CK-2) Rel Index Total Protein Albumin Urine WBC (Auto) Salicylates Acetaminophen Plasma/Serum Alcohol Crossmatch 12/04/19 12/04/19 12/04/19 04:26 07:45 12:02 WBC 15.9 H RBC 2.88 L Hgb 7.9 L Hct 25.1 L MCH RDW 20.4 H Plt Count 839 H Lymph % (Auto) 11.3 L Hall % (Auto) 15.2 H Hall # 2.4 H Seg Neutrophils % 72.4 H Seg Neuts % (Manual) Lymphocytes % (Manual) Seg Neutrophils # 11.5 H Seg Neutrophils # Man Lymphocytes # (Manual) Monocytes # (Manual) Basophils # (Manual) PT INR APTT ABG pH ABG pO2 ABG HCO3 ABG O2 Saturation ABG Base Excess ABG Hemoglobin Oxyhemoglobin Sodium Potassium Chloride 96.5 L Carbon Dioxide BUN 21 H Creatinine 0.6 L Glucose 107 H POC Glucose 138 H Lactic Acid Calcium Ionized Calcium Phosphorus Magnesium Total Bilirubin AST ALT Alkaline Phosphatase Ammonia Total Creatine Kinase CK-MB (CK-2) CK-MB (CK-2) Rel Index Total Protein Albumin Urine WBC (Auto) Salicylates Acetaminophen Plasma/Serum Alcohol Crossmatch 12/04/19 12/05/19 12/05/19 18:16 11:55 18:36 WBC RBC Hgb Hct MCH RDW Plt Count Lymph % (Auto) Hall % (Auto) Hall # Seg Neutrophils % Seg Neuts % (Manual) Lymphocytes % (Manual) Seg Neutrophils # Seg Neutrophils # Man Lymphocytes # (Manual) Monocytes # (Manual) Basophils # (Manual) PT INR APTT ABG pH ABG pO2 ABG HCO3 ABG O2 Saturation ABG Base Excess ABG Hemoglobin Oxyhemoglobin Sodium Potassium Chloride Carbon Dioxide BUN Creatinine Glucose POC Glucose 135 H 125 H 135 H Lactic Acid Calcium Ionized Calcium Phosphorus Magnesium Total Bilirubin AST ALT Alkaline Phosphatase Ammonia Total Creatine Kinase CK-MB (CK-2) CK-MB (CK-2) Rel Index Total Protein Albumin Urine WBC (Auto) Salicylates Acetaminophen Plasma/Serum Alcohol Crossmatch 12/05/19 12/06/19 12/06/19 23:30 04:14 05:43 WBC RBC Hgb Hct MCH RDW Plt Count Lymph % (Auto) Hall % (Auto) Hall # Seg Neutrophils % Seg Neuts % (Manual) Lymphocytes % (Manual) Seg Neutrophils # Seg Neutrophils # Man Lymphocytes # (Manual) Monocytes # (Manual) Basophils # (Manual) PT INR APTT ABG pH ABG pO2 ABG HCO3 ABG O2 Saturation ABG Base Excess ABG Hemoglobin Oxyhemoglobin Sodium Potassium 5.6 H Chloride 95.0 L Carbon Dioxide BUN 48 H Creatinine 1.3 H D Glucose POC Glucose 126 H 121 H Lactic Acid Calcium Ionized Calcium Phosphorus Magnesium Total Bilirubin AST 89 H ALT 98 H Alkaline Phosphatase 476 H Ammonia Total Creatine Kinase CK-MB (CK-2) CK-MB (CK-2) Rel Index Total Protein Albumin 2.8 L Urine WBC (Auto) Salicylates Acetaminophen Plasma/Serum Alcohol Crossmatch 12/06/19 12/06/19 12/07/19 10:39 14:34 00:19 WBC 17.3 H RBC 2.60 L Hgb 7.1 L Hct 22.7 L MCH 27 L RDW 20.1 H Plt Count 832 H Lymph % (Auto) Hall % (Auto) Hall # Seg Neutrophils % Seg Neuts % (Manual) Lymphocytes % (Manual) Seg Neutrophils # Seg Neutrophils # Man Lymphocytes # (Manual) Monocytes # (Manual) Basophils # (Manual) PT INR APTT ABG pH ABG pO2 ABG HCO3 ABG O2 Saturation ABG Base Excess ABG Hemoglobin Oxyhemoglobin Sodium Potassium Chloride Carbon Dioxide BUN Creatinine Glucose POC Glucose 128 H 136 H Lactic Acid Calcium Ionized Calcium Phosphorus Magnesium Total Bilirubin AST ALT Alkaline Phosphatase Ammonia Total Creatine Kinase CK-MB (CK-2) CK-MB (CK-2) Rel Index Total Protein Albumin Urine WBC (Auto) Salicylates Acetaminophen Plasma/Serum Alcohol Crossmatch 12/07/19 12/07/19 12/07/19 03:44 03:44 05:53 WBC 16.2 H RBC 2.56 L Hgb 7.1 L Hct 22.3 L MCH RDW 19.4 H Plt Count 782 H Lymph % (Auto) Hall % (Auto) Hall # Seg Neutrophils % Seg Neuts % (Manual) Lymphocytes % (Manual) Seg Neutrophils # Seg Neutrophils # Man Lymphocytes # (Manual) Monocytes # (Manual) Basophils # (Manual) PT INR APTT ABG pH ABG pO2 ABG HCO3 ABG O2 Saturation ABG Base Excess ABG Hemoglobin Oxyhemoglobin Sodium Potassium Chloride 95.6 L Carbon Dioxide BUN 56 H Creatinine 1.4 H Glucose 120 H POC Glucose 128 H Lactic Acid Calcium 10.3 H Ionized Calcium Phosphorus Magnesium Total Bilirubin AST ALT Alkaline Phosphatase Ammonia Total Creatine Kinase CK-MB (CK-2) CK-MB (CK-2) Rel Index Total Protein Albumin Urine WBC (Auto) Salicylates Acetaminophen Plasma/Serum Alcohol Crossmatch 12/07/19 12/07/19 12/08/19 12:54 23:47 00:20 WBC RBC Hgb Hct MCH RDW Plt Count Lymph % (Auto) Hall % (Auto) Hall # Seg Neutrophils % Seg Neuts % (Manual) Lymphocytes % (Manual) Seg Neutrophils # Seg Neutrophils # Man Lymphocytes # (Manual) Monocytes # (Manual) Basophils # (Manual) PT INR APTT ABG pH ABG pO2 ABG HCO3 ABG O2 Saturation ABG Base Excess ABG Hemoglobin Oxyhemoglobin Sodium Potassium Chloride Carbon Dioxide BUN Creatinine Glucose POC Glucose 128 H 130 H 124 H Lactic Acid Calcium Ionized Calcium Phosphorus Magnesium Total Bilirubin AST ALT Alkaline Phosphatase Ammonia Total Creatine Kinase CK-MB (CK-2) CK-MB (CK-2) Rel Index Total Protein Albumin Urine WBC (Auto) Salicylates Acetaminophen Plasma/Serum Alcohol Crossmatch 12/08/19 12/08/19 12/08/19 06:38 12:04 18:26 WBC RBC Hgb Hct MCH RDW Plt Count Lymph % (Auto) Hall % (Auto) Hall # Seg Neutrophils % Seg Neuts % (Manual) Lymphocytes % (Manual) Seg Neutrophils # Seg Neutrophils # Man Lymphocytes # (Manual) Monocytes # (Manual) Basophils # (Manual) PT INR APTT ABG pH ABG pO2 ABG HCO3 ABG O2 Saturation ABG Base Excess ABG Hemoglobin Oxyhemoglobin Sodium Potassium Chloride Carbon Dioxide BUN Creatinine Glucose POC Glucose 137 H 129 H 150 H Lactic Acid Calcium Ionized Calcium Phosphorus Magnesium Total Bilirubin AST ALT Alkaline Phosphatase Ammonia Total Creatine Kinase CK-MB (CK-2) CK-MB (CK-2) Rel Index Total Protein Albumin Urine WBC (Auto) Salicylates Acetaminophen Plasma/Serum Alcohol Crossmatch 12/09/19 12/09/19 12/09/19 00:56 05:34 06:13 WBC RBC Hgb Hct MCH RDW Plt Count Lymph % (Auto) Hall % (Auto) Hall # Seg Neutrophils % Seg Neuts % (Manual) Lymphocytes % (Manual) Seg Neutrophils # Seg Neutrophils # Man Lymphocytes # (Manual) Monocytes # (Manual) Basophils # (Manual) PT INR APTT ABG pH ABG pO2 ABG HCO3 ABG O2 Saturation ABG Base Excess ABG Hemoglobin Oxyhemoglobin Sodium 146 H Potassium Chloride Carbon Dioxide BUN 66 H Creatinine 1.9 H Glucose 116 H POC Glucose 130 H 130 H Lactic Acid Calcium Ionized Calcium Phosphorus Magnesium Total Bilirubin AST ALT Alkaline Phosphatase Ammonia Total Creatine Kinase CK-MB (CK-2) CK-MB (CK-2) Rel Index Total Protein Albumin Urine WBC (Auto) Salicylates Acetaminophen Plasma/Serum Alcohol Crossmatch 12/09/19 12/09/19 12/10/19 11:52 17:50 00:14 WBC RBC Hgb Hct MCH RDW Plt Count Lymph % (Auto) Hall % (Auto) Hall # Seg Neutrophils % Seg Neuts % (Manual) Lymphocytes % (Manual) Seg Neutrophils # Seg Neutrophils # Man Lymphocytes # (Manual) Monocytes # (Manual) Basophils # (Manual) PT INR APTT ABG pH ABG pO2 ABG HCO3 ABG O2 Saturation ABG Base Excess ABG Hemoglobin Oxyhemoglobin Sodium Potassium Chloride Carbon Dioxide BUN Creatinine Glucose POC Glucose 135 H 120 H 116 H Lactic Acid Calcium Ionized Calcium Phosphorus Magnesium Total Bilirubin AST ALT Alkaline Phosphatase Ammonia Total Creatine Kinase CK-MB (CK-2) CK-MB (CK-2) Rel Index Total Protein Albumin Urine WBC (Auto) Salicylates Acetaminophen Plasma/Serum Alcohol Crossmatch 12/10/19 12/10/19 12/10/19 05:38 11:38 17:34 WBC RBC Hgb Hct MCH RDW Plt Count Lymph % (Auto) Hall % (Auto) Hall # Seg Neutrophils % Seg Neuts % (Manual) Lymphocytes % (Manual) Seg Neutrophils # Seg Neutrophils # Man Lymphocytes # (Manual) Monocytes # (Manual) Basophils # (Manual) PT INR APTT ABG pH ABG pO2 ABG HCO3 ABG O2 Saturation ABG Base Excess ABG Hemoglobin Oxyhemoglobin Sodium Potassium Chloride Carbon Dioxide BUN Creatinine Glucose POC Glucose 115 H 112 H 130 H Lactic Acid Calcium Ionized Calcium Phosphorus Magnesium Total Bilirubin AST ALT Alkaline Phosphatase Ammonia Total Creatine Kinase CK-MB (CK-2) CK-MB (CK-2) Rel Index Total Protein Albumin Urine WBC (Auto) Salicylates Acetaminophen Plasma/Serum Alcohol Crossmatch 12/11/19 12/11/19 12/11/19 00:20 05:31 12:22 WBC RBC Hgb Hct MCH RDW Plt Count Lymph % (Auto) Hall % (Auto) Hall # Seg Neutrophils % Seg Neuts % (Manual) Lymphocytes % (Manual) Seg Neutrophils # Seg Neutrophils # Man Lymphocytes # (Manual) Monocytes # (Manual) Basophils # (Manual) PT INR APTT ABG pH ABG pO2 ABG HCO3 ABG O2 Saturation ABG Base Excess ABG Hemoglobin Oxyhemoglobin Sodium Potassium Chloride Carbon Dioxide BUN Creatinine Glucose POC Glucose 124 H 132 H 128 H Lactic Acid Calcium Ionized Calcium Phosphorus Magnesium Total Bilirubin AST ALT Alkaline Phosphatase Ammonia Total Creatine Kinase CK-MB (CK-2) CK-MB (CK-2) Rel Index Total Protein Albumin Urine WBC (Auto) Salicylates Acetaminophen Plasma/Serum Alcohol Crossmatch 12/11/19 12/11/19 12/12/19 18:04 23:42 03:51 WBC RBC Hgb Hct MCH RDW Plt Count Lymph % (Auto) Hall % (Auto) Hall # Seg Neutrophils % Seg Neuts % (Manual) Lymphocytes % (Manual) Seg Neutrophils # Seg Neutrophils # Man Lymphocytes # (Manual) Monocytes # (Manual) Basophils # (Manual) PT INR APTT ABG pH ABG pO2 ABG HCO3 ABG O2 Saturation ABG Base Excess ABG Hemoglobin Oxyhemoglobin Sodium 149 H Potassium Chloride Carbon Dioxide 20 L D BUN 77 H Creatinine 2.8 H Glucose POC Glucose 133 H 154 H Lactic Acid Calcium Ionized Calcium Phosphorus Magnesium Total Bilirubin AST ALT Alkaline Phosphatase Ammonia Total Creatine Kinase CK-MB (CK-2) CK-MB (CK-2) Rel Index Total Protein Albumin Urine WBC (Auto) Salicylates Acetaminophen Plasma/Serum Alcohol Crossmatch 12/12/19 12/12/19 12/12/19 05:18 05:26 10:30 WBC 18.0 H RBC 2.51 L Hgb 6.8 L Hct 22.0 L MCH 27 L RDW 19.9 H Plt Count 582 H Lymph % (Auto) Hall % (Auto) Hall # Seg Neutrophils % Seg Neuts % (Manual) Lymphocytes % (Manual) Seg Neutrophils # Seg Neutrophils # Man Lymphocytes # (Manual) Monocytes # (Manual) Basophils # (Manual) PT INR APTT ABG pH ABG pO2 ABG HCO3 ABG O2 Saturation ABG Base Excess ABG Hemoglobin Oxyhemoglobin Sodium Potassium Chloride Carbon Dioxide BUN Creatinine Glucose POC Glucose 135 H Lactic Acid Calcium Ionized Calcium Phosphorus Magnesium Total Bilirubin AST ALT Alkaline Phosphatase Ammonia Total Creatine Kinase CK-MB (CK-2) CK-MB (CK-2) Rel Index Total Protein Albumin Urine WBC (Auto) Salicylates Acetaminophen Plasma/Serum Alcohol Crossmatch See Detail 12/12/19 12/12/19 12/12/19 11:44 18:10 23:21 WBC RBC Hgb Hct MCH RDW Plt Count Lymph % (Auto) Hall % (Auto) Hall # Seg Neutrophils % Seg Neuts % (Manual) Lymphocytes % (Manual) Seg Neutrophils # Seg Neutrophils # Man Lymphocytes # (Manual) Monocytes # (Manual) Basophils # (Manual) PT INR APTT ABG pH ABG pO2 ABG HCO3 ABG O2 Saturation ABG Base Excess ABG Hemoglobin Oxyhemoglobin Sodium Potassium Chloride Carbon Dioxide BUN Creatinine Glucose POC Glucose 108 H 107 H 126 H Lactic Acid Calcium Ionized Calcium Phosphorus Magnesium Total Bilirubin AST ALT Alkaline Phosphatase Ammonia Total Creatine Kinase CK-MB (CK-2) CK-MB (CK-2) Rel Index Total Protein Albumin Urine WBC (Auto) Salicylates Acetaminophen Plasma/Serum Alcohol Crossmatch 12/13/19 12/13/19 12/13/19 05:41 07:48 07:48 WBC 38.3 H RBC 2.37 L Hgb 6.3 L Hct 20.9 L MCH 27 L RDW 20.2 H Plt Count 546 H Lymph % (Auto) Hall % (Auto) Hall # Seg Neutrophils % Seg Neuts % (Manual) 93.0 H Lymphocytes % (Manual) 1.0 L Seg Neutrophils # Seg Neutrophils # Man 35.6 H Lymphocytes # (Manual) 0.4 L Monocytes # (Manual) Basophils # (Manual) 0.4 H PT INR APTT ABG pH ABG pO2 ABG HCO3 ABG O2 Saturation ABG Base Excess ABG Hemoglobin Oxyhemoglobin Sodium 152 H Potassium 3.1 L D Chloride 111.9 H Carbon Dioxide 21 L BUN 53 H Creatinine 1.9 H Glucose 141 H POC Glucose 128 H Lactic Acid Calcium Ionized Calcium Phosphorus Magnesium Total Bilirubin AST ALT Alkaline Phosphatase 316 H Ammonia Total Creatine Kinase CK-MB (CK-2) CK-MB (CK-2) Rel Index Total Protein Albumin 2.4 L Urine WBC (Auto) Salicylates Acetaminophen Plasma/Serum Alcohol Crossmatch 12/13/19 12/13/19 12/14/19 18:17 23:19 05:36 WBC RBC Hgb Hct MCH RDW Plt Count Lymph % (Auto) Hall % (Auto) Hall # Seg Neutrophils % Seg Neuts % (Manual) Lymphocytes % (Manual) Seg Neutrophils # Seg Neutrophils # Man Lymphocytes # (Manual) Monocytes # (Manual) Basophils # (Manual) PT INR APTT ABG pH ABG pO2 ABG HCO3 ABG O2 Saturation ABG Base Excess ABG Hemoglobin Oxyhemoglobin Sodium Potassium Chloride Carbon Dioxide BUN Creatinine Glucose POC Glucose 141 H 158 H 182 H Lactic Acid Calcium Ionized Calcium Phosphorus Magnesium Total Bilirubin AST ALT Alkaline Phosphatase Ammonia Total Creatine Kinase CK-MB (CK-2) CK-MB (CK-2) Rel Index Total Protein Albumin Urine WBC (Auto) Salicylates Acetaminophen Plasma/Serum Alcohol Crossmatch 12/14/19 12/14/19 12/14/19 08:48 08:48 10:31 WBC 33.3 H RBC 2.70 L Hgb 7.9 L 8.0 L Hct 25.3 L 24.0 L MCH RDW 19.2 H Plt Count 476 H Lymph % (Auto) Hall % (Auto) Hall # Seg Neutrophils % Seg Neuts % (Manual) Lymphocytes % (Manual) Seg Neutrophils # Seg Neutrophils # Man Lymphocytes # (Manual) Monocytes # (Manual) Basophils # (Manual) PT INR APTT ABG pH ABG pO2 ABG HCO3 ABG O2 Saturation ABG Base Excess ABG Hemoglobin Oxyhemoglobin Sodium 153 H Potassium 2.5 L* Chloride 114.9 H Carbon Dioxide 20 L BUN 38 H Creatinine 1.4 H Glucose 177 H POC Glucose Lactic Acid Calcium Ionized Calcium Phosphorus Magnesium Total Bilirubin AST ALT Alkaline Phosphatase Ammonia Total Creatine Kinase CK-MB (CK-2) CK-MB (CK-2) Rel Index Total Protein Albumin Urine WBC (Auto) Salicylates Acetaminophen Plasma/Serum Alcohol Crossmatch 12/14/19 12/14/19 12/14/19 12:57 16:15 17:50 WBC RBC Hgb Hct MCH RDW Plt Count Lymph % (Auto) Hall % (Auto) Hall # Seg Neutrophils % Seg Neuts % (Manual) Lymphocytes % (Manual) Seg Neutrophils # Seg Neutrophils # Man Lymphocytes # (Manual) Monocytes # (Manual) Basophils # (Manual) PT INR APTT ABG pH ABG pO2 73.6 L ABG HCO3 ABG O2 Saturation ABG Base Excess ABG Hemoglobin 7.6 L Oxyhemoglobin 94.0 L Sodium Potassium Chloride Carbon Dioxide BUN Creatinine Glucose POC Glucose 174 H 150 H Lactic Acid Calcium Ionized Calcium Phosphorus Magnesium Total Bilirubin AST ALT Alkaline Phosphatase Ammonia Total Creatine Kinase CK-MB (CK-2) CK-MB (CK-2) Rel Index Total Protein Albumin Urine WBC (Auto) Salicylates Acetaminophen Plasma/Serum Alcohol Crossmatch 12/15/19 12/15/19 12/15/19 00:28 05:27 07:23 WBC 30.0 H RBC 3.11 L Hgb 8.6 L Hct 27.7 L MCH RDW 20.0 H Plt Count 473 H Lymph % (Auto) Hall % (Auto) Hall # Seg Neutrophils % Seg Neuts % (Manual) Lymphocytes % (Manual) Seg Neutrophils # Seg Neutrophils # Man Lymphocytes # (Manual) Monocytes # (Manual) Basophils # (Manual) PT INR APTT ABG pH ABG pO2 ABG HCO3 ABG O2 Saturation ABG Base Excess ABG Hemoglobin Oxyhemoglobin Sodium Potassium Chloride Carbon Dioxide BUN Creatinine Glucose POC Glucose 167 H 148 H Lactic Acid Calcium Ionized Calcium Phosphorus Magnesium Total Bilirubin AST ALT Alkaline Phosphatase Ammonia Total Creatine Kinase CK-MB (CK-2) CK-MB (CK-2) Rel Index Total Protein Albumin Urine WBC (Auto) Salicylates Acetaminophen Plasma/Serum Alcohol Crossmatch 12/15/19 12/15/19 12/15/19 07:23 12:21 17:41 WBC RBC Hgb Hct MCH RDW Plt Count Lymph % (Auto) Hall % (Auto) Hall # Seg Neutrophils % Seg Neuts % (Manual) Lymphocytes % (Manual) Seg Neutrophils # Seg Neutrophils # Man Lymphocytes # (Manual) Monocytes # (Manual) Basophils # (Manual) PT INR APTT ABG pH ABG pO2 ABG HCO3 ABG O2 Saturation ABG Base Excess ABG Hemoglobin Oxyhemoglobin Sodium 147 H Potassium 3.5 L D Chloride 111.2 H Carbon Dioxide 19 L BUN 29 H Creatinine Glucose 126 H POC Glucose 154 H 144 H Lactic Acid Calcium Ionized Calcium Phosphorus Magnesium Total Bilirubin AST ALT Alkaline Phosphatase Ammonia Total Creatine Kinase CK-MB (CK-2) CK-MB (CK-2) Rel Index Total Protein Albumin Urine WBC (Auto) Salicylates Acetaminophen Plasma/Serum Alcohol Crossmatch 12/16/19 12/16/19 12/16/19 00:22 05:30 05:44 WBC 30.8 H RBC 2.58 L Hgb 7.1 L Hct 22.7 L MCH RDW 19.6 H Plt Count 451 H Lymph % (Auto) Hall % (Auto) Hall # Seg Neutrophils % Seg Neuts % (Manual) Lymphocytes % (Manual) Seg Neutrophils # Seg Neutrophils # Man Lymphocytes # (Manual) Monocytes # (Manual) Basophils # (Manual) PT INR APTT ABG pH ABG pO2 ABG HCO3 ABG O2 Saturation ABG Base Excess ABG Hemoglobin Oxyhemoglobin Sodium Potassium Chloride Carbon Dioxide BUN Creatinine Glucose POC Glucose 139 H 126 H Lactic Acid Calcium Ionized Calcium Phosphorus Magnesium Total Bilirubin AST ALT Alkaline Phosphatase Ammonia Total Creatine Kinase CK-MB (CK-2) CK-MB (CK-2) Rel Index Total Protein Albumin Urine WBC (Auto) Salicylates Acetaminophen Plasma/Serum Alcohol Crossmatch 12/16/19 12/16/19 12/16/19 05:44 11:48 17:37 WBC RBC Hgb Hct MCH RDW Plt Count Lymph % (Auto) Hall % (Auto) Hall # Seg Neutrophils % Seg Neuts % (Manual) Lymphocytes % (Manual) Seg Neutrophils # Seg Neutrophils # Man Lymphocytes # (Manual) Monocytes # (Manual) Basophils # (Manual) PT INR APTT ABG pH ABG pO2 ABG HCO3 ABG O2 Saturation ABG Base Excess ABG Hemoglobin Oxyhemoglobin Sodium Potassium 3.4 L Chloride 109.2 H Carbon Dioxide 19 L BUN 27 H Creatinine Glucose 124 H POC Glucose 125 H 148 H Lactic Acid Calcium Ionized Calcium Phosphorus Magnesium Total Bilirubin AST ALT Alkaline Phosphatase Ammonia Total Creatine Kinase CK-MB (CK-2) CK-MB (CK-2) Rel Index Total Protein Albumin Urine WBC (Auto) Salicylates Acetaminophen Plasma/Serum Alcohol Crossmatch 12/16/19 12/17/19 12/17/19 23:43 05:28 12:47 WBC RBC Hgb Hct MCH RDW Plt Count Lymph % (Auto) Hall % (Auto) Hall # Seg Neutrophils % Seg Neuts % (Manual) Lymphocytes % (Manual) Seg Neutrophils # Seg Neutrophils # Man Lymphocytes # (Manual) Monocytes # (Manual) Basophils # (Manual) PT INR APTT ABG pH ABG pO2 ABG HCO3 ABG O2 Saturation ABG Base Excess ABG Hemoglobin Oxyhemoglobin Sodium Potassium Chloride Carbon Dioxide BUN Creatinine Glucose POC Glucose 142 H 140 H 125 H Lactic Acid Calcium Ionized Calcium Phosphorus Magnesium Total Bilirubin AST ALT Alkaline Phosphatase Ammonia Total Creatine Kinase CK-MB (CK-2) CK-MB (CK-2) Rel Index Total Protein Albumin Urine WBC (Auto) Salicylates Acetaminophen Plasma/Serum Alcohol Crossmatch 12/17/19 12/17/19 12/17/19 17:05 18:00 Unknown WBC RBC Hgb Hct MCH RDW Plt Count Lymph % (Auto) Hall % (Auto) Hall # Seg Neutrophils % Seg Neuts % (Manual) Lymphocytes % (Manual) Seg Neutrophils # Seg Neutrophils # Man Lymphocytes # (Manual) Monocytes # (Manual) Basophils # (Manual) PT INR APTT ABG pH ABG pO2 68.1 L ABG HCO3 ABG O2 Saturation 93.7 L ABG Base Excess ABG Hemoglobin 5.0 L Oxyhemoglobin 91.7 L Sodium Potassium Chloride Carbon Dioxide BUN Creatinine Glucose POC Glucose 140 H Lactic Acid Calcium Ionized Calcium Phosphorus Magnesium Total Bilirubin AST ALT Alkaline Phosphatase Ammonia Total Creatine Kinase CK-MB (CK-2) CK-MB (CK-2) Rel Index Total Protein Albumin Urine WBC (Auto) Salicylates Acetaminophen Plasma/Serum Alcohol Crossmatch 12/18/19 12/18/19 12/18/19 00:16 04:53 04:53 WBC 28.6 H RBC 2.27 L Hgb 6.3 L Hct 19.5 L* MCH RDW 20.0 H Plt Count 497 H Lymph % (Auto) Hall % (Auto) Hall # Seg Neutrophils % Seg Neuts % (Manual) Lymphocytes % (Manual) Seg Neutrophils # Seg Neutrophils # Man Lymphocytes # (Manual) Monocytes # (Manual) Basophils # (Manual) PT INR APTT ABG pH ABG pO2 ABG HCO3 ABG O2 Saturation ABG Base Excess ABG Hemoglobin Oxyhemoglobin Sodium Potassium Chloride 107.9 H Carbon Dioxide 20 L BUN 27 H Creatinine 0.6 L Glucose 116 H POC Glucose 123 H Lactic Acid Calcium Ionized Calcium Phosphorus Magnesium Total Bilirubin AST ALT Alkaline Phosphatase Ammonia Total Creatine Kinase CK-MB (CK-2) CK-MB (CK-2) Rel Index Total Protein Albumin Urine WBC (Auto) Salicylates Acetaminophen Plasma/Serum Alcohol Crossmatch 12/18/19 12/18/19 12/18/19 06:38 11:22 12:08 WBC RBC Hgb Hct MCH RDW Plt Count Lymph % (Auto) Hall % (Auto) Hall # Seg Neutrophils % Seg Neuts % (Manual) Lymphocytes % (Manual) Seg Neutrophils # Seg Neutrophils # Man Lymphocytes # (Manual) Monocytes # (Manual) Basophils # (Manual) PT INR APTT ABG pH ABG pO2 ABG HCO3 ABG O2 Saturation ABG Base Excess ABG Hemoglobin Oxyhemoglobin Sodium Potassium Chloride Carbon Dioxide BUN Creatinine Glucose POC Glucose 120 H 127 H Lactic Acid Calcium Ionized Calcium Phosphorus Magnesium Total Bilirubin AST ALT Alkaline Phosphatase Ammonia Total Creatine Kinase CK-MB (CK-2) CK-MB (CK-2) Rel Index Total Protein Albumin Urine WBC (Auto) Salicylates Acetaminophen Plasma/Serum Alcohol Crossmatch See Detail Allied health notes reviewed: nursing
[2019-12-18] MEDS: SCOPOLAMINE TRANSDERMAL PATCH 72 HR TD SCH (14:05)
[2019-12-18 14:16] LABS: ABG Base Excess -1.3 mmol/L (-2.0-3.0); ABG HCO3 25.7 mmol/L (20.0-26.0); ABG Methemoglobin 0.4 % (0.0-1.5); ABG Oxygen Saturation 88.4 % (95.0-99.0); ABG PCO2 57.6 mm Hg; ABG PH 7.267 pH Units (7.350-7.450); ABG PO2 69.8 mm Hg (80.0-90.0)
[2019-12-18] MEDS ORDERED: SODIUM CHLORIDE 0.9% 500 ML 500 ML ONE (14:17)
--- NOTE | 2019-12-18 14:17 | XRay Report ---
ABDOMEN 2 VIEW(S) INDICATION / CLINICAL INFORMATION: swelling; PEG position. COMPARISON: None available. FINDINGS: TUBES / LINES: Peg tube projects over body of stomach. On second image, Gastrografin was instilled th rough the PEG tube which confirmed intraluminal placement. No extravasation is seen. BOWEL GAS PATTERN: No significant abnormality. FREE AIR / EXTRALUMINAL GAS: None seen. ADDITIONAL FINDINGS: No significant additional findings. IMPRESSION: 1. PEG tube in body of stomach Signer Name: Phillip Garcia MD Signed: 12/18/2019 2:13 PM Workstation Name: [id number]
--- NOTE | 2019-12-18 16:17 | Progress Note ---
Assessment and Plan /Anemia, hemoglobin 6.3 today -Continue to hold heparin, transfuse 1 unit of packed RBC -Check stool for occult blood /Acute metabolic encephalopathy/toxic encephalopathy due to the above - cont supportive care / Anoxic brain injury: suspected CT head: No acute abnormality. neurology consult placed, EEG ordered showed Generalized slowing. No seizures or epileptiform activity. Per neurology : Patient found to have intact corneal/VOR/cough reflexes, and is withdrawing and lower extremities, therefore patient is not found to be brain . However, given that patient had an out of hospital cardiac arrest, the time of which is uncertain, the likelihood of meaningful neurological recovery is somewhat low. /Acute Respiratory failure -s/p intubation, s/p trach and PEG on 12/12 with mechanical ventilation - CTA was done and negative for PE, - Echo quality is poor, showed diastolic dysfunction - continue ICU monitoring - wean OFF vent/O2 as tolerated /Hyperammonemia - likely from liver disease related to EtOH abuse - Patient had elevated ammonia level and treated with lactulose /Metabolic Acidosis -Alcohol ketoacidosis vs hypoprofusion -Continue to monitor /ELevated LFTs, stable now - due to ischemic hepatitis. /Leucocytosis with sepsis - Source MRSA bacteremia and MSSA pneumonia. UA showed pyuria. RUQ US showed no ascites. Completed 7 days of Ceftriaxone on 11/29/2019. - Repeat TTE negative for vegetation. cont abx /MSSA pneumonia: on vancomycin /ALcohol USe Disorder - given ongoing Alcohol use almost daily, s/p IV Thiamine - monitor /Severe hypokalemia -Repleted /Seizure disorder: treat with Keppra /H. Influenzae, tracheobronchitis, treated with abx FUll code, family denies DNR Very poor prognosis The high probability of a clinically significant, sudden or life threatening deterioration of the [neurology,respiratory] system(s) required my full and direct attention, intervention and personal management. The aggregate critical care time was [32] minutes. This time is in addition to time spent performing reported procedures but includes the following: [x] Data Review and interpretation [x] Patient assessment and monitoring of vital signs [x] Documentation [x] Medication orders and management Disposition: prognosis poor. 12/17/19: Day 24 on MV, PEEP 6 FiO2 30%, trying to wean, held sq heparin due to drop in h/h and anemia, renewed restraints, fever appears to be due to worsening pneumonia, UA negative, pCXR Impression: Slight interval worsening of a consolidative opacity in the left mid to lower lung, worrisome for pneumonia in the appropriate clinical setting. Adjust Vancomycin dose continue cefepime with ID following. Swollen right arm with Venous doppler of right arm r/o DVT ordered but not done due to COVID-19, 12/18/19: hb 6.3, transfuse one unit PRBC Brief History: 54-year-old female with a past medical history of Hypertension, Depression, Tobacco use Disorder, Alcohol use Disorder as confirmed by Daughter and pt's mother presents to the hospital status post cardiac arrest at home. EMS found pt in [place]. They were unable to intubate patient with a ET tube because she was clenching down therefore Joe airway placed. Per the ED physician who evaluated pt, Patient presented with a pulse, intermittent respirations, and bagging support via Joe airway with O2 sat of 100%. Accu-Chek of 71 obtained by EMS. She was intubated in the ER and called for admission. Following admission patient was diagnosed with anoxic brain injury, sepsis with MRSA bacteremia and MSSA pneumonia, alcoholic liver disease. Family member wished for full code, patient currently getting treated with IV antibiotics for sepsis, status post trach and PEG on 12/13/19. Subjective Date of service: 12/18/19 Principal diagnosis: Ac cardiopulmonary arrest; Ac hypoxemic resp failure; Acute encephalopathy Interval history: Patient seen and examined remained on mechanical ventilation with trach, unresponsive, no clinical change family wants to continue full code Discussed with RN at bedside, discussed with case sealer for disposition planning Tolerating tube feeding with PEG tube Hemoglobin today dropped to 6.3 No family member noted at bedside Objective - Exam Narrative Exam: General appearance: Present: other (on vent comatose, elderly female) - EENT Eyes: no scleral icterus, no conjunctival injection, pupil not reactive ENT: clear oral mucosa, dentition normal, no oropharyngeal erythema Ears: bilateral: normal - Neck Neck: trach on place - Respiratory Respiratory effort: other (on vent) Respiratory: bilateral: rales - Cardiovascular Rhythm: regular Heart Sounds: Present: S1 & S2. Absent: gallop, rub Extremities: pulses intact, No edema, normal color - Gastrointestinal General gastrointestinal: Present: soft, non-tender, non-distended, normal bowel sounds - Integumentary Integumentary: clear, warm, dry - Musculoskeletal Musculoskeletal: does not respond to commend - Neurologic Neurologic: other (intubated with trach and 2+ reflexes throughout) - Psychiatric Psychiatric: no appropriate mood/affect, no intact judgment & insight, no memory intact - Constitutional Vitals: Vital Signs - 12hr 12/18/19 12/18/19 12/18/19 04:20 04:41 05:00 Temperature 101.0 F H Pulse Rate 130 H 130 H Respiratory 24 Rate Blood Pressure 137/82 144/83 O2 Sat by Pulse 97 97 Oximetry 12/18/19 12/18/19 12/18/19 06:00 07:00 08:00 Temperature 100 F H Pulse Rate 131 H 132 H 133 H Respiratory 25 H 25 H 25 H Rate Blood Pressure 139/86 148/90 149/87 O2 Sat by Pulse 97 97 98 Oximetry 12/18/19 12/18/19 12/18/19 08:15 09:00 12:00 Temperature 98.7 F Pulse Rate 134 H Respiratory 25 H Rate Blood Pressure 142/81 O2 Sat by Pulse 98 96 Oximetry 12/18/19 12/18/19 13:25 13:45 Temperature Pulse Rate 155 H 140 H Respiratory Rate Blood Pressure 172/89 131/68 O2 Sat by Pulse 95 Oximetry - Labs CBC & Chem 7: 12/19/19 03:37 12/19/19 03:37 Labs: Abnormal lab results 12/17/19 12/17/19 12/18/19 Range/Units 17:05 18:00 00:16 WBC (4.5-11.0) K/mm3 RBC (3.65-5.03) M/mm3 Hgb (10.1-14.3) gm/dl Hct (30.3-42.9) % RDW (13.2-15.2) % Plt Count (140-440) K/mm3 ABG pH (7.350-7.450) pH Units ABG pO2 68.1 L (80.0-90.0) mm Hg ABG O2 Saturation 93.7 L (95.0-99.0) % ABG Hemoglobin (12.0-16.0) gm/dl Oxyhemoglobin 91.7 L (95.0-99.0) % Chloride (98-107) mmol/L Carbon Dioxide (22-30) mmol/L BUN (7-17) mg/dL Creatinine (0.7-1.2) mg/dL Glucose (65-100) mg/dL POC Glucose 140 H 123 H (70-105) Crossmatch 12/18/19 12/18/19 12/18/19 Range/Units 04:53 04:53 06:38 WBC 28.6 H (4.5-11.0) K/mm3 RBC 2.27 L (3.65-5.03) M/mm3 Hgb 6.3 L (10.1-14.3) gm/dl Hct 19.5 L* (30.3-42.9) % RDW 20.0 H (13.2-15.2) % Plt Count 497 H (140-440) K/mm3 ABG pH (7.350-7.450) pH Units ABG pO2 (80.0-90.0) mm Hg ABG O2 Saturation (95.0-99.0) % ABG Hemoglobin (12.0-16.0) gm/dl Oxyhemoglobin (95.0-99.0) % Chloride 107.9 H (98-107) mmol/L Carbon Dioxide 20 L (22-30) mmol/L BUN 27 H (7-17) mg/dL Creatinine 0.6 L (0.7-1.2) mg/dL Glucose 116 H (65-100) mg/dL POC Glucose 120 H (70-105) Crossmatch 12/18/19 12/18/19 12/18/19 Range/Units 11:22 12:08 14:05 WBC (4.5-11.0) K/mm3 RBC (3.65-5.03) M/mm3 Hgb (10.1-14.3) gm/dl Hct (30.3-42.9) % RDW (13.2-15.2) % Plt Count (140-440) K/mm3 ABG pH 7.267 L (7.350-7.450) pH Units ABG pO2 69.8 L (80.0-90.0) mm Hg ABG O2 Saturation 88.4 L (95.0-99.0) % ABG Hemoglobin 7.1 L (12.0-16.0) gm/dl Oxyhemoglobin 86.4 L (95.0-99.0) % Chloride (98-107) mmol/L Carbon Dioxide (22-30) mmol/L BUN (7-17) mg/dL Creatinine (0.7-1.2) mg/dL Glucose (65-100) mg/dL POC Glucose 127 H (70-105) Crossmatch See Detail
[2019-12-18] MEDS: QUEtiapine 100 MG TAB PO SCH (21:35)
[2019-12-19 04:59] LABS: Hemoglobin 7.6 gm/dl (10.1-14.3); Mean Corpuscular HGB Conc 33 % (30-34); Mean Corpuscular Volume 89 fl (79-97); Platelet Count 530 K/mm3 (140-440); Red Cell Distribution Width 19.4 % (13.2-15.2)
[2019-12-19 05:12] LABS: BUN/Creatinine Ratio 40; Blood Urea Nitrogen 36 mg/dL (7-17); Calcium 9.4 mg/dL (8.4-10.2); Hemolysis Index 8
[2019-12-19] MEDS: chlordiazePOXIDE 25 MG CAP PO SCH ×3 (06:43→22:43)
[2019-12-19] MEDS: SERTRALINE 25 MG TAB PO SCH (10:12)
[2019-12-19] MEDS: MORPHINE 2 MG/1 ML INJ IV PRN (10:12)
[2019-12-19] MEDS: VANCOMYCIN 750 MG in SODIUM CHLORIDE 0.9% 250ML 250 ML IV SCH ×2 (10:12→22:43)
[2019-12-19] MEDS: LACTULOSE 20 GM/30 ML ORAL LIQD PO SCH ×2 (10:14→22:44)
[2019-12-19] MEDS: LANSOPRAZOLE 30 MG SOLUTAB FEEDTUBE SCH (10:14)
[2019-12-19] MEDS: levETIRAcetam 500 MG/5 ML ORAL LIQD PO SCH ×2 (10:14→22:42)
[2019-12-19] MEDS: MIRTAZAPINE 30 MG TAB PO SCH (10:14)
[2019-12-19] MEDS: SENNOSIDES/DOCUSATE SODIUM 8.6/50 MG TAB PO SCH ×2 (10:14→22:44)
[2019-12-19] MEDS: TAMSULOSIN 0.4 MG CAP PO SCH (10:15)
[2019-12-19] MEDS: hydrOXYzine PAMOATE 25 MG CAP PO SCH ×2 (10:15→22:43)
--- NOTE | 2019-12-19 13:33 | Progress Note ---
Assessment and Plan Cultures: 11/22/2019 urine culture:no significant growth 11/22/2019 tracheal aspirate culture: H. influenzae 12/13/2019 blood culture: MRSA 1 of 4 12/13/2019 sputum MSSA 12/16/2019 blood culture: no growth so far A/P: 54-year-old female with hypertension, depression, tobacco use, alcohol abuse was brought into the emergency room on 11/22/2019 after she went into respiratory arrest at home requiring CPR by EMS: #Sepsis: fever better. Source MRSA bacteremia and MSSA pneumonia. UA showed pyuria. RUQ US showed no ascites. Completed 7 days of Ceftriaxone on 11/29/2019. #MRSA bacteremia: source ? pneumonia. Repeat TTE negative for vegetation. #MSSA pneumonia: on vancomycin #Acute respiratory failure: Possibly aspiration. No pneumonia seen. On mechanical ventilation. #Elevated LFTs, alcohol abuse, status post arrest requiring CPR: Trend LFTs. RUQ US showed no ascites. #Acute encephalopathy: Likely multifactorial from alcohol abuse, status post arrest, electrolyte abnormalities. #Diarrhea: likely combination of tube feeds and lactulose. now with BMS Recs: Monitor fever Continue vancomycin with PK consult trough level 10-20 monitor fever Anticipate to d/c on vancomycin 1 gm IV q 12 hour total 2 week till 12/30/2019. Keep vancomycin trough 10-20. Sent to caser. Will sign off Janice Haque MD Infectious Diseases [employer] [facility] [phone] O [phone] Subjective Date of service: 12/19/19 Principal diagnosis: Ac cardiopulmonary arrest; Ac hypoxemic resp failure; Acute encephalopathy Interval history: Remains intubated on the vent tachycardic on monitor, no fever for 24h Objective - Exam Narrative Exam: limited Gen: intubated sedated Cardiovascular: S1, S2 normal Respiratory: Good air entry, clear to auscultation bilaterally GI: slightly distended, bowel sounds present. Musculoskeletal: No pedal edema, no cyanosis. Skin: No rash or abscess Hem/Lymphatic: No palpable cervical or supraclavicular nodes. No lymphangitis Psych: no agitation. Neurological: comatose - Constitutional Vitals: Vital Signs Temp Pulse Resp BP Pulse Ox 99.9 F H 127 H 30 H 146/92 100 12/19/19 08:00 12/19/19 12:00 12/19/19 12:00 12/19/19 12:00 12/19/19 12:00 Temperature -Last 24 Hours Temperature 99.9 F Temperature 98.2 F Temperature 98.7 F Temperature 98.1 F Temperature 99 F - Labs CBC & Chem 7: 12/19/19 03:37 12/19/19 03:37 Labs: Abnormal lab results 12/18/19 12/18/19 12/18/19 Range/Units 11:22 14:05 17:49 WBC (4.5-11.0) K/mm3 RBC (3.65-5.03) M/mm3 Hgb (10.1-14.3) gm/dl Hct (30.3-42.9) % RDW (13.2-15.2) % Plt Count (140-440) K/mm3 ABG pH 7.267 L (7.350-7.450) pH Units ABG pO2 69.8 L (80.0-90.0) mm Hg ABG O2 Saturation 88.4 L (95.0-99.0) % ABG Hemoglobin 7.1 L (12.0-16.0) gm/dl Oxyhemoglobin 86.4 L (95.0-99.0) % Carbon Dioxide (22-30) mmol/L BUN (7-17) mg/dL Glucose (65-100) mg/dL POC Glucose 157 H (70-105) Crossmatch See Detail 12/18/19 12/19/19 12/19/19 Range/Units 23:53 03:37 03:37 WBC 31.3 H (4.5-11.0) K/mm3 RBC 2.60 L (3.65-5.03) M/mm3 Hgb 7.6 L (10.1-14.3) gm/dl Hct 23.0 L (30.3-42.9) % RDW 19.4 H (13.2-15.2) % Plt Count 530 H (140-440) K/mm3 ABG pH (7.350-7.450) pH Units ABG pO2 (80.0-90.0) mm Hg ABG O2 Saturation (95.0-99.0) % ABG Hemoglobin (12.0-16.0) gm/dl Oxyhemoglobin (95.0-99.0) % Carbon Dioxide 18 L (22-30) mmol/L BUN 36 H (7-17) mg/dL Glucose 111 H (65-100) mg/dL POC Glucose 128 H (70-105) Crossmatch 12/19/19 Range/Units 05:25 WBC (4.5-11.0) K/mm3 RBC (3.65-5.03) M/mm3 Hgb (10.1-14.3) gm/dl Hct (30.3-42.9) % RDW (13.2-15.2) % Plt Count (140-440) K/mm3 ABG pH (7.350-7.450) pH Units ABG pO2 (80.0-90.0) mm Hg ABG O2 Saturation (95.0-99.0) % ABG Hemoglobin (12.0-16.0) gm/dl Oxyhemoglobin (95.0-99.0) % Carbon Dioxide (22-30) mmol/L BUN (7-17) mg/dL Glucose (65-100) mg/dL POC Glucose 123 H (70-105) Crossmatch
--- NOTE | 2019-12-19 15:26 | Progress Note ---
Assessment and Plan /Anemia, microcytic -Continue to hold heparin, transfused 2 units of packed RBC -Check stool for occult blood /Acute metabolic encephalopathy/toxic encephalopathy due to the above - cont supportive care / Anoxic brain injury: suspected CT head: No acute abnormality. neurology consult placed, EEG ordered showed Generalized slowing. No seizures or epileptiform activity. Per neurology : Patient found to have intact corneal/VOR/cough reflexes, and is withdrawing and lower extremities, therefore patient is not found to be brain . However, given that patient had an out of hospital cardiac arrest, the ti me of which is uncertain, the likelihood of meaningful neurological recovery is somewhat low. /Acute Respiratory failure -s/p intubation, s/p trach and PEG on 12/12 with mechanical ventilation - CTA was done and negative for PE, - Echo quality is poor, showed diastolic dysfunction - continue ICU monitoring - wean OFF vent/O2 as tolerated /Hyperammonemia - likely from liver disease related to EtOH abuse - Patient had elevated ammonia level and treated with lactulose /Metabolic Acidosis -Alcohol ketoacidosis vs hypoprofusion -Continue to monitor /ELevated LFTs, stable now - due to ischemic hepatitis. /Leucocytosis with sepsis - Source MRSA bacteremia and MSSA pneumonia. UA showed pyuria. RUQ US showed no ascites. Completed 7 days of Ceftriaxone on 11/29/2019. - Repeat TTE negative for vegetation. cont abx /MSSA pneumonia: on vancomycin /ALcohol USe Disorder - given ongoing Alcohol use almost daily, s/p IV Thiamine - monitor /Severe hypokalemia -Repleted /Seizure disorder: treat with Keppra /H. Influenzae, tracheobronchitis, treated with abx FUll code, family denies DNR Very poor prognosis The high probability of a clinically significant, sudden or life threatening d eterioration of the [neurology,respiratory] system(s) required my full and direct attention, intervention and personal management. The aggregate critical care time was [32] minutes. This time is in addition to time spent performing reported procedures but includes the following: [x] Data Review and interpretation [x] Patient assessment and monitoring of vital signs [x] Documentation [x] Medication orders and management Disposition: prognosis poor. 12/17/19: Day 24 on MV, PEEP 6 FiO2 30%, trying to wean, held sq heparin due to drop in h/h and anemia, renewed restraints, fever appears to be due to worsening pneumonia, UA negative, pCXR Impression: Slight interval worsening of a conso lidative opacity in the left mid to lower lung, worrisome for pneumonia in the appropriate clinical setting. Adjust Vancomycin dose continue cefepime with ID following. Swollen right arm with Venous doppler of right arm r/o DVT ordered but not done due to COVID-19, 12/18/19: hb 6.3, transfuse one unit PRBC 12/19/19 : H&H stable, continue to monitor clinical status at ICU Brief History: 54-year-old female with a past medical history of Hypertension, Depression, Tobacco use Disorder, Alcohol use Disorder as confirmed by Daughter and pt's mother presents to the hospital status post cardiac arrest at home. EMS found pt in [place]. They were unable to intubate patient with a ET tube because she was clenching down therefore Joe airway placed. Per the ED physician who evaluated pt, Patient presented with a pulse, intermittent respirations, and bagging support via Joe airway with O2 sat of 100%. Accu-Chek of 71 obtained by EMS. She was intubated in the ER and called for admission. Following admission patient was diagnosed with anoxic brain injury, sepsis with MRSA bacteremia and MSSA pneumonia, alcoholic liver disease. Family member wished for full code, patient currently getting treated with IV antibiotics for sepsis, status post trach and PEG on 12/13/19. Subjective Date of service: 12/19/19 Principal diagnosis: Ac cardiopulmonary arrest; Ac hypoxemic resp failure; Acute encephalopathy Interval history: Patient seen and examined remained on mechanical ventilation with trach, unresponsive, no clinical change family wants to continue full code Discussed with RN at bedside, discussed with block and case maker for disposition planning Tolerating tube feeding with PEG tube No family member noted at bedside Objective - Exam Narrative Exam: General appearance: Present: other (on vent comatose, elderly female) - EENT Eyes: no scleral icterus, no conjunctival injection, pupil not reactive ENT: clear oral mucosa, dentition normal, no oropharyngeal erythema Ears: bilateral: normal - Neck Neck: trach on place - Respiratory Respiratory effort: other (on vent) Respiratory: bilateral: rales - Cardiovascular Rhythm: regular Heart Sounds: Present: S1 & S2. Absent: gallop, rub Extremities: pulses intact, No edema, normal color - Gastrointestinal General gastrointestinal: Present: soft, non-tender, non-distended, normal bowel sounds - Integumentary Integumentary: clear, warm, dry - Musculoskeletal Musculoskeletal: does not respond to commend - Neurologic Neurologic: other (intubated with trach and 2+ reflexes throughout) - Psychiatric Psychiatric: no appropriate mood/affect, no intact judgment & insight, no memory intact - Constitutional Vitals: Vital Signs - 12hr 12/19/19 12/19/19 12/19/19 04:00 04:15 05:00 Temperature 98.2 F Pulse Rate 111 H 102 H 107 H Pulse Rate [ 112 H From Monitor] Respiratory 30 H 30 H Rate Blood Pressure 123/82 137/77 120/78 O2 Sat by Pulse 100 100 99 Oximetry O2 Sat by Pulse Oximetry [ Assessment] 12/19/19 12/19/19 12/19/19 06:00 07:00 08:00 Temperature 99.9 F H Pulse Rate 107 H 109 H 113 H Pulse Rate [ 112 H From Monitor] Respiratory 30 H 30 H 30 H Rate Blood Pressure 120/80 129/82 122/80 O2 Sat by Pulse 100 100 97 Oximetry O2 Sat by Pulse 110 H Oximetry [ Assessment] 12/19/19 12/19/19 12/19/19 09:00 10:00 10:12 Temperature Pulse Rate 113 H 118 H Pulse Rate [ From Monitor] Respiratory 28 H 28 H 30 H Rate Blood Pressure 129/84 128/81 O2 Sat by Pulse 100 100 Oximetry O2 Sat by Pulse Oximetry [ Assessment] 12/19/19 12/19/19 11:00 12:00 Temperature Pulse Rate 125 H 126 H Pulse Rate [ 127 H From Monitor] Respiratory 29 H 29 H Rate Blood Pressure 144/89 146/92 O2 Sat by Pulse 100 99 Oximetry O2 Sat by Pulse Oximetry [ Assessment] - Labs CBC & Chem 7: 12/19/19 03:37 12/19/19 03:37 Labs: Abnormal lab results 12/18/19 12/18/19 12/18/19 Range/Units 11:22 17:49 23:53 WBC (4.5-11.0) K/mm3 RBC (3.65-5.03) M/mm3 Hgb (10.1-14.3) gm/dl Hct (30.3-42.9) % RDW (13.2-15.2) % Plt Count (140-440) K/mm3 Carbon Dioxide (22-30) mmol/L BUN (7-17) mg/dL Glucose (65-100) mg/dL POC Glucose 157 H 128 H (70-105) Crossmatch See Detail 12/19/19 12/19/19 12/19/19 Range/Units 03:37 03:37 05:25 WBC 31.3 H (4.5-11.0) K/mm3 RBC 2.60 L (3.65-5.03) M/mm3 Hgb 7.6 L (10.1-14.3) gm/dl Hct 23.0 L (30.3-42.9) % RDW 19.4 H (13.2-15.2) % Plt Count 530 H (140-440) K/mm3 Carbon Dioxide 18 L (22-30) mmol/L BUN 36 H (7-17) mg/dL Glucose 111 H (65-100) mg/dL POC Glucose 123 H (70-105) Crossmatch 12/19/19 Range/Units 12:59 WBC (4.5-11.0) K/mm3 RBC (3.65-5.03) M/mm3 Hgb (10.1-14.3) gm/dl Hct (30.3-42.9) % RDW (13.2-15.2) % Plt Count (140-440) K/mm3 Carbon Dioxide (22-30) mmol/L BUN (7-17) mg/dL Glucose (65-100) mg/dL POC Glucose 130 H (70-105) Crossmatch
--- NOTE | 2019-12-19 15:33 | Progress Note ---
Assessment and Plan Acute cardiopulmonary arrest with ROSC Acute hypoxemic respiratory failure on MVS Acute metabolic-toxic encephalopathy Metabolic acidosis/alcoholic acidosis/Lactic acidosis Ischemic hepatitis Leucocytosis with lactic acidosis Tobacco use disorder ALcohol use Disorder Hypokalemia High grade fevers - continue Propofol for sedation re: increased work of breathing - get KUB with contrast to evaluate abdominal distension and PEG location - follow C&S (Fever spikes improving but growing MRSA in blood and MSSA trach aspirate) - continue Antibiotics per ID recommendations; de-escalate based on HILARIO /sensitivities / clinical progress - reduce free water flushes as hypernatremia corrected - continue bronchodilators with routine trach care and pulmonary hygiene per RT - VAP bundle addressed (continue aspiration precautions, HOB > 40) - continue daily SAT's and assessment for readiness for SBT (For PSV trial today) - continue to rest on AC mode qhs - continue Seroquel for tentative delirium and to spare IV sedation - continue Librium at 75 mg po q8h - continue Reglan for G.I. motility - s/p CIWA protocol - Continue Intermittent sedation until patient's neurologic state can be better evaluated - begin Seroquel for agitation / to spare IV sedatives - Continue VTE and Stress ulcer prophylaxis - Continue enteric nutritional support. Monitor glycemic control, with target blood glucose 140-180 mg/dL while critically ill (Avoid hypoglycemia) - Continue daily SAT assessment as tolerated - Continue to wean supplemental oxygen for target O2 sat's > 90% - ABG and CXR prn - Continue to trend leukocytosis and lactic acidosis - Continue to treat for hepatic encephalopathy- especially with elevated ammonia levels- lactulose - Continue thiamine, multivitamin and electrolyte replacement - Continue to avoid nephrotoxins, adjust all medications fro GFR and CrCL - Continue to avoid benzodiazepines , as much as possible, to reduce the possibility of delirium - Continue prn analgesia per CPOT score - Continue to maintain of sleep-wake cycle, avoid delirium - PT/OT/ROM exercises- awaiting PT/OT evaluation - Continue mobility protocol and skin assessment per protocol for pressure ulcer prevention - Continue to monitor for clinical seizures - Continue Nicotine withdrawal precautions, alcohol withdrawal precautions - continue other care per attending / other consultants ..... re-evaluate in am & prn CONDITION: CRITICAL PROGNOSIS: GUARDED CODE STATUS: FULL CODE The high probability of a clinically significant, sudden or life-threatening deterioration of the [respiratory, cardiovascular,GI/hepatology] system(s) required my full and direct attention, intervention and personal management. The aggregate critical care time was [32] minutes without overlap. Time includes spent on; [x] Data Review and interpretation [x] Patient assessment and monitoring of vital signs [x] Documentation [x] Medication orders and management Subjective Date of service: 12/19/19 Principal diagnosis: Ac cardiopulmonary arrest; Ac hypoxemic resp failure; Acute encephalopathy Interval history: Patient is seen today for: Acute cardiopulmonary arrest with ROSC; Acute hypoxemic respiratory failure; Acute metabolic-toxic encephalopathy; Ischemic hepatitis; Leucocytosis with lactic acidosis; Tobacco use disorder; Alcohol use Disorder; Hypokalemia; High grade fevers Seen and examined at bedside; 24hour events reviewed; nursing and respiratory care staff consulted; no adverse overnight events reported to me; resting peacefully in bed; work of breathing increased; not tolerating weaning; now septic with MRSA bacteremia Objective Vital Signs - 12hr 12/19/19 12/19/19 12/19/19 04:00 04:15 05:00 Temperature 98.2 F Pulse Rate 111 H 102 H 107 H Pulse Rate [ 112 H From Monitor] Respiratory 30 H 30 H Rate Blood Pressure 123/82 137/77 120/78 O2 Sat by Pulse 100 100 99 Oximetry O2 Sat by Pulse Oximetry [ Assessment] 12/19/19 12/19/19 12/19/19 06:00 07:00 08:00 Temperature 99.9 F H Pulse Rate 107 H 109 H 113 H Pulse Rate [ 112 H From Monitor] Respiratory 30 H 30 H 30 H Rate Blood Pressure 120/80 129/82 122/80 O2 Sat by Pulse 100 100 97 Oximetry O2 Sat by Pulse 110 H Oximetry [ Assessment] 12/19/19 12/19/19 12/19/19 09:00 10:00 10:12 Temperature Pulse Rate 113 H 118 H Pulse Rate [ From Monitor] Respiratory 28 H 28 H 30 H Rate Blood Pressure 129/84 128/81 O2 Sat by Pulse 100 100 Oximetry O2 Sat by Pulse Oximetry [ Assessment] 12/19/19 12/19/19 11:00 12:00 Temperature Pulse Rate 125 H 126 H Pulse Rate [ 127 H From Monitor] Respiratory 29 H 29 H Rate Blood Pressure 144/89 146/92 O2 Sat by Pulse 100 99 Oximetry O2 Sat by Pulse Oximetry [ Assessment] Constitutional: no acute distress, other (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, with midline tracheostomy and mild dys-synchrony) Eyes: non-icteric ENT: oropharynx moist, other (s/p trach) Neck: supple, no lymphadenopathy, no JVD Effort: mildly labored Ascultation: Bilateral: diminished breath sounds, rhonchi Percussion: Bilateral: not dull Cardiovascular: regular rate and rhythm (tachycardia), other (S1,S2) Gastrointestinal: normoactive bowel sounds, soft, non-tender, non-distended Integumentary: normal Extremities: no cyanosis, no edema, pulses normal, no ischemia or petechiae Neurologic: unable to assess, other (awake but not tracking voice ) Psychiatric: other (Psychiatric: Unable to assess) CBC and BMP: 12/21/19 14:53 12/22/19 04:43 ABG, PT/INR, D-dimer: ABG ABG pH 7.267 pH Units (7.350-7.450) L 12/18/19 14:05 ABG pCO2 57.6 mm Hg 12/18/19 14:05 ABG pO2 69.8 mm Hg (80.0-90.0) L 12/18/19 14:05 ABG O2 Saturation 88.4 % (95.0-99.0) L 12/18/19 14:05 PT/INR, D-dimer PT 17.0 Sec. (12.2-14.9) H 11/23/19 03:47 INR 1.36 (0.87-1.13) H 11/23/19 03:47 Abnormal lab findings: Abnormal Labs 11/22/19 11/22/19 11/22/19 23:17 23:18 23:27 WBC 21.2 H RBC 3.59 L Hgb 9.8 L Hct MCH 27 L RDW 18.6 H Plt Count 454 H Lymph % (Auto) [place] % (Auto) [place] # Seg Neutrophils % Seg Neuts % (Manual) 86.0 H Lymphocytes % (Manual) 9.0 L Seg Neutrophils # Seg Neutrophils # Man 18.2 H Lymphocytes # (Manual) Monocytes # (Manual) 1.1 H Basophils # (Manual) PT INR APTT ABG pH ABG pO2 ABG HCO3 ABG O2 Saturation ABG Base Excess ABG Hemoglobin Oxyhemoglobin Sodium Potassium Chloride Carbon Dioxide BUN Creatinine Glucose POC Glucose 53 L Lactic Acid Calcium Ionized Calcium Phosphorus Magnesium Total Bilirubin AST ALT Alkaline Phosphatase Ammonia Total Creatine Kinase CK-MB (CK-2) CK-MB (CK-2) Rel Index Total Protein Albumin Urine WBC (Auto) 40.0 H Salicylates Acetaminophen Plasma/Serum Alcohol Crossmatch 11/22/19 11/22/19 11/22/19 23:27 23:27 23:27 WBC RBC Hgb Hct MCH RDW Plt Count Lymph % (Auto) [place] % (Auto) [place] # Seg Neutrophils % Seg Neuts % (Manual) Lymphocytes % (Manual) Seg Neutrophils # Seg Neutrophils # Man Lymphocytes # (Manual) Monocytes # (Manual) Basophils # (Manual) PT INR APTT ABG pH ABG pO2 ABG HCO3 ABG O2 Saturation ABG Base Excess ABG Hemoglobin Oxyhemoglobin Sodium Potassium 2.4 L* Chloride 85.1 L Carbon Dioxide 19 L BUN Creatinine 0.5 L Glucose 261 H POC Glucose Lactic Acid Calcium Ionized Calcium Phosphorus Magnesium Total Bilirubin AST 609 H ALT 152 H Alkaline Phosphatase 160 H Ammonia 117.0 H Total Creatine Kinase 139 H CK-MB (CK-2) 8.3 H CK-MB (CK-2) Rel Index 5.9 H Total Protein Albumin 3.6 L Urine WBC (Auto) Salicylates < 0.3 L Acetaminophen Plasma/Serum Alcohol Crossmatch 11/22/19 11/22/19 11/23/19 23:27 23:27 01:10 WBC RBC Hgb Hct MCH RDW Plt Count Lymph % (Auto) [place] % (Auto) [place] # Seg Neutrophils % Seg Neuts % (Manual) Lymphocytes % (Manual) Seg Neutrophils # Seg Neutrophils # Man Lymphocytes # (Manual) Monocytes # (Manual) Basophils # (Manual) PT INR APTT ABG pH 7.273 L ABG pO2 209.7 H ABG HCO3 ABG O2 Saturation 99.2 H ABG Base Excess -3.9 L ABG Hemoglobin 10.6 L Oxyhemoglobin 93.9 L Sodium Potassium Chloride Carbon Dioxide BUN Creatinine Glucose POC Glucose Lactic Acid Calcium Ionized Calcium Phosphorus Magnesium Total Bilirubin AST ALT Alkaline Phosphatase Ammonia Total Creatine Kinase CK-MB (CK-2) CK-MB (CK-2) Rel Index Total Protein Albumin Urine WBC (Auto) Salicylates Acetaminophen < 5.0 L Plasma/Serum Alcohol 0.08 H Crossmatch 11/23/19 11/23/19 11/23/19 01:19 01:19 03:47 WBC RBC Hgb Hct MCH RDW Plt Count Lymph % (Auto) [place] % (Auto) [place] # Seg Neutrophils % Seg Neuts % (Manual) Lymphocytes % (Manual) Seg Neutrophils # Seg Neutrophils # Man Lymphocytes # (Manual) Monocytes # (Manual) Basophils # (Manual) PT 16.3 H INR 1.29 H APTT ABG pH ABG pO2 ABG HCO3 ABG O2 Saturation ABG Base Excess ABG Hemoglobin Oxyhemoglobin Sodium Potassium Chloride Carbon Dioxide BUN Creatinine Glucose POC Glucose Lactic Acid 2.10 H* 5.00 H* Calcium Ionized Calcium Phosphorus Magnesium Total Bilirubin AST ALT Alkaline Phosphatase Ammonia Total Creatine Kinase CK-MB (CK-2) CK-MB (CK-2) Rel Index Total Protein Albumin Urine WBC (Auto) Salicylates Acetaminophen Plasma/Serum Alcohol Crossmatch 11/23/19 11/23/19 11/23/19 03:47 03:47 04:53 WBC RBC Hgb 9.4 L Hct MCH RDW Plt Count Lymph % (Auto) [place] % (Auto) [place] # Seg Neutrophils % Seg Neuts % (Manual) Lymphocytes % (Manual) Seg Neutrophils # Seg Neutrophils # Man Lymphocytes # (Manual) Monocytes # (Manual) Basophils # (Manual) PT 17.0 H INR 1.36 H APTT 128.2 H* ABG pH ABG pO2 ABG HCO3 ABG O2 Saturation ABG Base Excess ABG Hemoglobin Oxyhemoglobin Sodium Potassium Chloride Carbon Dioxide 18 L BUN Creatinine 0.5 L Glucose 105 H POC Glucose Lactic Acid Calcium 8.3 L Ionized Calcium Phosphorus 2.40 L Magnesium Total Bilirubin 1.30 H AST 761 H ALT 158 H Alkaline Phosphatase 143 H Ammonia Total Creatine Kinase CK-MB (CK-2) CK-MB (CK-2) Rel Index Total Protein Albumin 2.8 L Urine WBC (Auto) Salicylates Acetaminophen Plasma/Serum Alcohol Crossmatch 11/23/19 11/23/19 11/23/19 05:12 06:32 06:32 WBC 16.8 H RBC 3.31 L Hgb 8.9 L Hct 28.7 L MCH 27 L RDW 18.6 H Plt Count Lymph % (Auto) [place] % (Auto) [place] # Seg Neutrophils % Seg Neuts % (Manual) 94.0 H Lymphocytes % (Manual) 1.0 L Seg Neutrophils # Seg Neutrophils # Man 15.8 H Lymphocytes # (Manual) 0.2 L Monocytes # (Manual) Basophils # (Manual) PT INR APTT ABG pH ABG pO2 ABG HCO3 ABG O2 Saturation ABG Base Excess -3.2 L ABG Hemoglobin 9.0 L Oxyhemoglobin 93.6 L Sodium Potassium Chloride Carbon Dioxide BUN Creatinine Glucose POC Glucose Lactic Acid Calcium Ionized Calcium 4.5 L Phosphorus Magnesium Total Bilirubin AST ALT Alkaline Phosphatase Ammonia Total Creatine Kinase CK-MB (CK-2) CK-MB (CK-2) Rel Index Total Protein Albumin Urine WBC (Auto) Salicylates Acetaminophen Plasma/Serum Alcohol Crossmatch 11/23/19 11/24/19 11/24/19 06:32 04:35 04:35 WBC RBC Hgb Hct MCH RDW Plt Count Lymph % (Auto) [place] % (Auto) [place] # Seg Neutrophils % Seg Neuts % (Manual) Lymphocytes % (Manual) Seg Neutrophils # Seg Neutrophils # Man Lymphocytes # (Manual) Monocytes # (Manual) Basophils # (Manual) PT INR APTT ABG pH ABG pO2 ABG HCO3 ABG O2 Saturation ABG Base Excess ABG Hemoglobin Oxyhemoglobin Sodium Potassium Chloride Carbon Dioxide BUN Creatinine Glucose POC Glucose Lactic Acid 3.30 H* Calcium Ionized Calcium Phosphorus Magnesium 1.40 L Total Bilirubin AST ALT Alkaline Phosphatase Ammonia 98.0 H Total Creatine Kinase CK-MB (CK-2) CK-MB (CK-2) Rel Index Total Protein Albumin Urine WBC (Auto) Salicylates Acetaminophen Plasma/Serum Alcohol Crossmatch 11/24/19 11/25/19 11/25/19 05:22 04:34 05:05 WBC 17.3 H RBC 2.88 L Hgb 7.8 L Hct 24.6 L MCH 27 L RDW 18.5 H Plt Count Lymph % (Auto) 7.7 L [place] % (Auto) 9.7 H [place] # 1.7 H Seg Neutrophils % 82.2 H Seg Neuts % (Manual) Lymphocytes % (Manual) Seg Neutrophils # 14.2 H Seg Neutrophils # Man Lymphocytes # (Manual) Monocytes # (Manual) Basophils # (Manual) PT INR APTT ABG pH 7.475 H ABG pO2 ABG HCO3 29.4 H 32.3 H ABG O2 Saturation ABG Base Excess 5.4 H 6.9 H ABG Hemoglobin 9.0 L 10.6 L Oxyhemoglobin 94.3 L Sodium Potassium Chloride Carbon Dioxide BUN Creatinine Glucose POC Glucose Lactic Acid Calcium Ionized Calcium Phosphorus Magnesium Total Bilirubin AST ALT Alkaline Phosphatase Ammonia Total Creatine Kinase CK-MB (CK-2) CK-MB (CK-2) Rel Index Total Protein Albumin Urine WBC (Auto) Salicylates Acetaminophen Plasma/Serum Alcohol Crossmatch 11/25/19 11/25/19 11/26/19 05:05 22:46 03:31 WBC RBC Hgb Hct MCH RDW Plt Count Lymph % (Auto) [place] % (Auto) [place] # Seg Neutrophils % Seg Neuts % (Manual) Lymphocytes % (Manual) Seg Neutrophils # Seg Neutrophils # Man Lymphocytes # (Manual) Monocytes # (Manual) Basophils # (Manual) PT INR APTT ABG pH 7.459 H ABG pO2 ABG HCO3 34.2 H ABG O2 Saturation ABG Base Excess 9.4 H ABG Hemoglobin 7.6 L Oxyhemoglobin 94.8 L Sodium 152 H D 147 H Potassium 2.3 L* D 2.8 L* D Chloride 107.8 H Carbon Dioxide 31 H D 33 H BUN Creatinine 0.6 L 0.6 L Glucose 148 H 177 H POC Glucose Lactic Acid Calcium Ionized Calcium Phosphorus Magnesium Total Bilirubin AST 105 H ALT 71 H Alkaline Phosphatase 155 H Ammonia Total Creatine Kinase CK-MB (CK-2) CK-MB (CK-2) Rel Index Total Protein 5.2 L D Albumin 2.9 L Urine WBC (Auto) Salicylates Acetaminophen Plasma/Serum Alcohol Crossmatch 11/26/19 11/26/19 11/27/19 08:24 08:24 04:20 WBC 12.0 H RBC 3.00 L Hgb 8.0 L 9.3 L Hct 25.9 L 29.7 L MCH 27 L RDW 18.5 H Plt Count Lymph % (Auto) [place] % (Auto) [place] # Seg Neutrophils % Seg Neuts % (Manual) 89.0 H Lymphocytes % (Manual) 4.0 L Seg Neutrophils # Seg Neutrophils # Man 10.7 H Lymphocytes # (Manual) 0.5 L Monocytes # (Manual) Basophils # (Manual) PT INR APTT ABG pH ABG pO2 ABG HCO3 ABG O2 Saturation ABG Base Excess ABG Hemoglobin Oxyhemoglobin Sodium 146 H Potassium 3.4 L D Chloride Carbon Dioxide BUN Creatinine 0.5 L Glucose 165 H POC Glucose Lactic Acid Calcium Ionized Calcium Phosphorus Magnesium Total Bilirubin AST 57 H ALT Alkaline Phosphatase 166 H Ammonia Total Creatine Kinase CK-MB (CK-2) CK-MB (CK-2) Rel Index Total Protein Albumin 2.9 L Urine WBC (Auto) Salicylates Acetaminophen Plasma/Serum Alcohol Crossmatch 11/27/19 11/27/19 11/27/19 04:28 04:28 04:42 WBC RBC Hgb Hct MCH RDW Plt Count Lymph % (Auto) [place] % (Auto) [place] # Seg Neutrophils % Seg Neuts % (Manual) Lymphocytes % (Manual) Seg Neutrophils # Seg Neutrophils # Man Lymphocytes # (Manual) Monocytes # (Manual) Basophils # (Manual) PT INR APTT ABG pH 7.470 H ABG pO2 74.0 L ABG HCO3 33.8 H ABG O2 Saturation ABG Base Excess 9.1 H ABG Hemoglobin 8.7 L Oxyhemoglobin 94.7 L Sodium 146 H Potassium 2.9 L* Chloride Carbon Dioxide BUN 25 H Creatinine Glucose 213 H POC Glucose Lactic Acid Calcium Ionized Calcium Phosphorus 1.00 L Magnesium Total Bilirubin AST ALT Alkaline Phosphatase Ammonia Total Creatine Kinase CK-MB (CK-2) CK-MB (CK-2) Rel Index Total Protein Albumin Urine WBC (Auto) Salicylates Acetaminophen Plasma/Serum Alcohol Crossmatch 11/27/19 11/27/19 11/27/19 05:37 12:20 15:46 WBC RBC Hgb Hct MCH RDW Plt Count Lymph % (Auto) [place] % (Auto) [place] # Seg Neutrophils % Seg Neuts % (Manual) Lymphocytes % (Manual) Seg Neutrophils # Seg Neutrophils # Man Lymphocytes # (Manual) Monocytes # (Manual) Basophils # (Manual) PT INR APTT ABG pH ABG pO2 ABG HCO3 ABG O2 Saturation ABG Base Excess ABG Hemoglobin Oxyhemoglobin Sodium 146 H Potassium 3.5 L D Chloride Carbon Dioxide BUN 24 H Creatinine 0.6 L Glucose 187 H POC Glucose 117 H 220 H Lactic Acid Calcium Ionized Calcium Phosphorus Magnesium Total Bilirubin AST ALT Alkaline Phosphatase Ammonia Total Creatine Kinase CK-MB (CK-2) CK-MB (CK-2) Rel Index Total Protein Albumin Urine WBC (Auto) Salicylates Acetaminophen Plasma/Serum Alcohol Crossmatch 11/27/19 11/28/19 11/28/19 17:28 05:00 05:02 WBC RBC Hgb Hct MCH RDW Plt Count Lymph % (Auto) [place] % (Auto) [place] # Seg Neutrophils % Seg Neuts % (Manual) Lymphocytes % (Manual) Seg Neutrophils # Seg Neutrophils # Man Lymphocytes # (Manual) Monocytes # (Manual) Basophils # (Manual) PT INR APTT ABG pH ABG pO2 72.4 L ABG HCO3 33.6 H ABG O2 Saturation 94.1 L ABG Base Excess 7.3 H ABG Hemoglobin Oxyhemoglobin 91.8 L Sodium 146 H Potassium 3.3 L Chloride Carbon Dioxide BUN 25 H Creatinine 0.6 L Glucose 176 H POC Glucose 198 H Lactic Acid Calcium Ionized Calcium Phosphorus Magnesium Total Bilirubin AST ALT Alkaline Phosphatase Ammonia Total Creatine Kinase CK-MB (CK-2) CK-MB (CK-2) Rel Index Total Protein Albumin Urine WBC (Auto) Salicylates Acetaminophen Plasma/Serum Alcohol Crossmatch 11/28/19 11/28/19 11/29/19 05:02 18:55 10:43 WBC 15.2 H 19.0 H RBC 3.06 L 3.01 L Hgb 8.3 L 8.3 L Hct 27.0 L 26.4 L MCH 27 L RDW 19.0 H 19.7 H Plt Count 479 H 611 H Lymph % (Auto) [place] % (Auto) [place] # Seg Neutrophils % Seg Neuts % (Manual) 92.0 H Lymphocytes % (Manual) 2.0 L Seg Neutrophils # Seg Neutrophils # Man 14.0 H Lymphocytes # (Manual) 0.3 L Monocytes # (Manual) Basophils # (Manual) PT INR APTT ABG pH ABG pO2 ABG HCO3 ABG O2 Saturation ABG Base Excess ABG Hemoglobin Oxyhemoglobin Sodium Potassium Chloride Carbon Dioxide BUN Creatinine Glucose POC Glucose 138 H Lactic Acid Calcium Ionized Calcium Phosphorus Magnesium Total Bilirubin AST ALT Alkaline Phosphatase Ammonia Total Creatine Kinase CK-MB (CK-2) CK-MB (CK-2) Rel Index Total Protein Albumin Urine WBC (Auto) Salicylates Acetaminophen Plasma/Serum Alcohol Crossmatch 11/29/19 11/29/19 11/29/19 10:43 12:27 19:25 WBC RBC Hgb Hct MCH RDW Plt Count Lymph % (Auto) [place] % (Auto) [place] # Seg Neutrophils % Seg Neuts % (Manual) Lymphocytes % (Manual) Seg Neutrophils # Seg Neutrophils # Man Lymphocytes # (Manual) Monocytes # (Manual) Basophils # (Manual) PT INR APTT ABG pH ABG pO2 ABG HCO3 ABG O2 Saturation ABG Base Excess ABG Hemoglobin Oxyhemoglobin Sodium Potassium 2.8 L* Chloride Carbon Dioxide BUN 20 H Creatinine 0.5 L Glucose 121 H POC Glucose 128 H 120 H Lactic Acid Calcium Ionized Calcium Phosphorus Magnesium Total Bilirubin AST ALT Alkaline Phosphatase Ammonia Total Creatine Kinase CK-MB (CK-2) CK-MB (CK-2) Rel Index Total Protein Albumin Urine WBC (Auto) Salicylates Acetaminophen Plasma/Serum Alcohol Crossmatch 11/29/19 11/30/19 11/30/19 23:46 04:10 05:02 WBC RBC Hgb Hct MCH RDW Plt Count Lymph % (Auto) [place] % (Auto) [place] # Seg Neutrophils % Seg Neuts % (Manual) Lymphocytes % (Manual) Seg Neutrophils # Seg Neutrophils # Man Lymphocytes # (Manual) Monocytes # (Manual) Basophils # (Manual) PT INR APTT ABG pH ABG pO2 76.3 L ABG HCO3 32.5 H ABG O2 Saturation ABG Base Excess 6.9 H ABG Hemoglobin 8.0 L Oxyhemoglobin 92.6 L Sodium Potassium Chloride Carbon Dioxide BUN Creatinine Glucose POC Glucose 116 H 128 H Lactic Acid Calcium Ionized Calcium Phosphorus Magnesium Total Bilirubin AST ALT Alkaline Phosphatase Ammonia Total Creatine Kinase CK-MB (CK-2) CK-MB (CK-2) Rel Index Total Protein Albumin Urine WBC (Auto) Salicylates Acetaminophen Plasma/Serum Alcohol Crossmatch 11/30/19 11/30/19 11/30/19 05:25 05:25 12:59 WBC 18.4 H RBC 3.10 L Hgb 8.5 L Hct 27.5 L MCH 27 L RDW 20.9 H Plt Count 691 H Lymph % (Auto) 7.1 L [place] % (Auto) 7.7 H [place] # 1.4 H Seg Neutrophils % 83.4 H Seg Neuts % (Manual) Lymphocytes % (Manual) Seg Neutrophils # 15.4 H Seg Neutrophils # Man Lymphocytes # (Manual) Monocytes # (Manual) Basophils # (Manual) PT INR APTT ABG pH ABG pO2 ABG HCO3 ABG O2 Saturation ABG Base Excess ABG Hemoglobin Oxyhemoglobin Sodium 146 H Potassium Chloride 107.2 H Carbon Dioxide BUN Creatinine 0.5 L Glucose 132 H POC Glucose 124 H Lactic Acid Calcium Ionized Calcium Phosphorus Magnesium Total Bilirubin AST 246 H ALT 274 H Alkaline Phosphatase 203 H Ammonia Total Creatine Kinase CK-MB (CK-2) CK-MB (CK-2) Rel Index Total Protein 5.4 L Albumin 2.9 L Urine WBC (Auto) Salicylates Acetaminophen Plasma/Serum Alcohol Crossmatch 11/30/19 12/01/19 12/01/19 17:53 00:05 05:10 WBC RBC Hgb Hct MCH RDW Plt Count Lymph % (Auto) [place] % (Auto) [place] # Seg Neutrophils % Seg Neuts % (Manual) Lymphocytes % (Manual) Seg Neutrophils # Seg Neutrophils # Man Lymphocytes # (Manual) Monocytes # (Manual) Basophils # (Manual) PT INR APTT ABG pH ABG pO2 ABG HCO3 ABG O2 Saturation ABG Base Excess ABG Hemoglobin Oxyhemoglobin Sodium Potassium Chloride Carbon Dioxide BUN Creatinine Glucose POC Glucose 113 H 143 H 145 H Lactic Acid Calcium Ionized Calcium Phosphorus Magnesium Total Bilirubin AST ALT Alkaline Phosphatase Ammonia Total Creatine Kinase CK-MB (CK-2) CK-MB (CK-2) Rel Index Total Protein Albumin Urine WBC (Auto) Salicylates Acetaminophen Plasma/Serum Alcohol Crossmatch 12/01/19 12/01/19 12/01/19 05:33 08:23 08:23 WBC 22.7 H RBC 2.88 L Hgb 7.9 L Hct 25.2 L MCH 27 L RDW 21.0 H Plt Count 732 H Lymph % (Auto) [place] % (Auto) [place] # Seg Neutrophils % Seg Neuts % (Manual) 91.0 H Lymphocytes % (Manual) 3.0 L Seg Neutrophils # Seg Neutrophils # Man 20.7 H Lymphocytes # (Manual) 0.7 L Monocytes # (Manual) 1.1 H Basophils # (Manual) PT INR APTT ABG pH ABG pO2 68.6 L ABG HCO3 34.1 H ABG O2 Saturation ABG Base Excess 9.0 H ABG Hemoglobin 6.5 L Oxyhemoglobin 94.7 L Sodium Potassium Chloride Carbon Dioxide BUN Creatinine 0.5 L Glucose 125 H POC Glucose Lactic Acid Calcium Ionized Calcium Phosphorus Magnesium Total Bilirubin AST ALT Alkaline Phosphatase Ammonia Total Creatine Kinase CK-MB (CK-2) CK-MB (CK-2) Rel Index Total Protein Albumin Urine WBC (Auto) Salicylates Acetaminophen Plasma/Serum Alcohol Crossmatch 12/01/19 12/01/19 12/01/19 13:21 17:54 20:59 WBC RBC Hgb Hct MCH RDW Plt Count Lymph % (Auto) [place] % (Auto) [place] # Seg Neutrophils % Seg Neuts % (Manual) Lymphocytes % (Manual) Seg Neutrophils # Seg Neutrophils # Man Lymphocytes # (Manual) Monocytes # (Manual) Basophils # (Manual) PT INR APTT ABG pH ABG pO2 78.3 L ABG HCO3 33.8 H ABG O2 Saturation 94.9 L ABG Base Excess 7.9 H ABG Hemoglobin 11.5 L Oxyhemoglobin 92.3 L Sodium Potassium Chloride Carbon Dioxide BUN Creatinine Glucose POC Glucose 111 H 115 H Lactic Acid Calcium Ionized Calcium Phosphorus Magnesium Total Bilirubin AST ALT Alkaline Phosphatase Ammonia Total Creatine Kinase CK-MB (CK-2) CK-MB (CK-2) Rel Index Total Protein Albumin Urine WBC (Auto) Salicylates Acetaminophen Plasma/Serum Alcohol Crossmatch 12/02/19 12/03/19 12/04/19 12:55 20:00 04:26 WBC 15.2 H RBC 2.69 L Hgb 7.4 L Hct 23.6 L MCH 27 L RDW 19.9 H Plt Count 838 H Lymph % (Auto) [place] % (Auto) [place] # Seg Neutrophils % Seg Neuts % (Manual) Lymphocytes % (Manual) Seg Neutrophils # Seg Neutrophils # Man Lymphocytes # (Manual) Monocytes # (Manual) Basophils # (Manual) PT INR APTT ABG pH ABG pO2 68.3 L ABG HCO3 33.5 H ABG O2 Saturation 93.5 L ABG Base Excess 8.4 H ABG Hemoglobin 7.3 L Oxyhemoglobin 90.9 L Sodium Potassium Chloride Carbon Dioxide BUN Creatinine Glucose POC Glucose 107 H Lactic Acid Calcium Ionized Calcium Phosphorus Magnesium Total Bilirubin AST ALT Alkaline Phosphatase Ammonia Total Creatine Kinase CK-MB (CK-2) CK-MB (CK-2) Rel Index Total Protein Albumin Urine WBC (Auto) Salicylates Acetaminophen Plasma/Serum Alcohol Crossmatch 12/04/19 12/04/19 12/04/19 04:26 07:45 12:02 WBC 15.9 H RBC 2.88 L Hgb 7.9 L Hct 25.1 L MCH RDW 20.4 H Plt Count 839 H Lymph % (Auto) 11.3 L [place] % (Auto) 15.2 H [place] # 2.4 H Seg Neutrophils % 72.4 H Seg Neuts % (Manual) Lymphocytes % (Manual) Seg Neutrophils # 11.5 H Seg Neutrophils # Man Lymphocytes # (Manual) Monocytes # (Manual) Basophils # (Manual) PT INR APTT ABG pH ABG pO2 ABG HCO3 ABG O2 Saturation ABG Base Excess ABG Hemoglobin Oxyhemoglobin Sodium Potassium Chloride 96.5 L Carbon Dioxide BUN 21 H Creatinine 0.6 L Glucose 107 H POC Glucose 138 H Lactic Acid Calcium Ionized Calcium Phosphorus Magnesium Total Bilirubin AST ALT Alkaline Phosphatase Ammonia Total Creatine Kinase CK-MB (CK-2) CK-MB (CK-2) Rel Index Total Protein Albumin Urine WBC (Auto) Salicylates Acetaminophen Plasma/Serum Alcohol Crossmatch 12/04/19 12/05/19 12/05/19 18:16 11:55 18:36 WBC RBC Hgb Hct MCH RDW Plt Count Lymph % (Auto) [place] % (Auto) [place] # Seg Neutrophils % Seg Neuts % (Manual) Lymphocytes % (Manual) Seg Neutrophils # Seg Neutrophils # Man Lymphocytes # (Manual) Monocytes # (Manual) Basophils # (Manual) PT INR APTT ABG pH ABG pO2 ABG HCO3 ABG O2 Saturation ABG Base Excess ABG Hemoglobin Oxyhemoglobin Sodium Potassium Chloride Carbon Dioxide BUN Creatinine Glucose POC Glucose 135 H 125 H 135 H Lactic Acid Calcium Ionized Calcium Phosphorus Magnesium Total Bilirubin AST ALT Alkaline Phosphatase Ammonia Total Creatine Kinase CK-MB (CK-2) CK-MB (CK-2) Rel Index Total Protein Albumin Urine WBC (Auto) Salicylates Acetaminophen Plasma/Serum Alcohol Crossmatch 12/05/19 12/06/19 12/06/19 23:30 04:14 05:43 WBC RBC Hgb Hct MCH RDW Plt Count Lymph % (Auto) [place] % (Auto) [place] # Seg Neutrophils % Seg Neuts % (Manual) Lymphocytes % (Manual) Seg Neutrophils # Seg Neutrophils # Man Lymphocytes # (Manual) Monocytes # (Manual) Basophils # (Manual) PT INR APTT ABG pH ABG pO2 ABG HCO3 ABG O2 Saturation ABG Base Excess ABG Hemoglobin Oxyhemoglobin Sodium Potassium 5.6 H Chloride 95.0 L Carbon Dioxide BUN 48 H Creatinine 1.3 H D Glucose POC Glucose 126 H 121 H Lactic Acid Calcium Ionized Calcium Phosphorus Magnesium Total Bilirubin AST 89 H ALT 98 H Alkaline Phosphatase 476 H Ammonia Total Creatine Kinase CK-MB (CK-2) CK-MB (CK-2) Rel Index Total Protein Albumin 2.8 L Urine WBC (Auto) Salicylates Acetaminophen Plasma/Serum Alcohol Crossmatch 12/06/19 12/06/19 12/07/19 10:39 14:34 00:19 WBC 17.3 H RBC 2.60 L Hgb 7.1 L Hct 22.7 L MCH 27 L RDW 20.1 H Plt Count 832 H Lymph % (Auto) [place] % (Auto) [place] # Seg Neutrophils % Seg Neuts % (Manual) Lymphocytes % (Manual) Seg Neutrophils # Seg Neutrophils # Man Lymphocytes # (Manual) Monocytes # (Manual) Basophils # (Manual) PT INR APTT ABG pH ABG pO2 ABG HCO3 ABG O2 Saturation ABG Base Excess ABG Hemoglobin Oxyhemoglobin Sodium Potassium Chloride Carbon Dioxide BUN Creatinine Glucose POC Glucose 128 H 136 H Lactic Acid Calcium Ionized Calcium Phosphorus Magnesium Total Bilirubin AST ALT Alkaline Phosphatase Ammonia Total Creatine Kinase CK-MB (CK-2) CK-MB (CK-2) Rel Index Total Protein Albumin Urine WBC (Auto) Salicylates Acetaminophen Plasma/Serum Alcohol Crossmatch 12/07/19 12/07/19 12/07/19 03:44 03:44 05:53 WBC 16.2 H RBC 2.56 L Hgb 7.1 L Hct 22.3 L MCH RDW 19.4 H Plt Count 782 H Lymph % (Auto) [place] % (Auto) [place] # Seg Neutrophils % Seg Neuts % (Manual) Lymphocytes % (Manual) Seg Neutrophils # Seg Neutrophils # Man Lymphocytes # (Manual) Monocytes # (Manual) Basophils # (Manual) PT INR APTT ABG pH ABG pO2 ABG HCO3 ABG O2 Saturation ABG Base Excess ABG Hemoglobin Oxyhemoglobin Sodium Potassium Chloride 95.6 L Carbon Dioxide BUN 56 H Creatinine 1.4 H Glucose 120 H POC Glucose 128 H Lactic Acid Calcium 10.3 H Ionized Calcium Phosphorus Magnesium Total Bilirubin AST ALT Alkaline Phosphatase Ammonia Total Creatine Kinase CK-MB (CK-2) CK-MB (CK-2) Rel Index Total Protein Albumin Urine WBC (Auto) Salicylates Acetaminophen Plasma/Serum Alcohol Crossmatch 12/07/19 12/07/19 12/08/19 12:54 23:47 00:20 WBC RBC Hgb Hct MCH RDW Plt Count Lymph % (Auto) [place] % (Auto) [place] # Seg Neutrophils % Seg Neuts % (Manual) Lymphocytes % (Manual) Seg Neutrophils # Seg Neutrophils # Man Lymphocytes # (Manual) Monocytes # (Manual) Basophils # (Manual) PT INR APTT ABG pH ABG pO2 ABG HCO3 ABG O2 Saturation ABG Base Excess ABG Hemoglobin Oxyhemoglobin Sodium Potassium Chloride Carbon Dioxide BUN Creatinine Glucose POC Glucose 128 H 130 H 124 H Lactic Acid Calcium Ionized Calcium Phosphorus Magnesium Total Bilirubin AST ALT Alkaline Phosphatase Ammonia Total Creatine Kinase CK-MB (CK-2) CK-MB (CK-2) Rel Index Total Protein Albumin Urine WBC (Auto) Salicylates Acetaminophen Plasma/Serum Alcohol Crossmatch 12/08/19 12/08/19 12/08/19 06:38 12:04 18:26 WBC RBC Hgb Hct MCH RDW Plt Count Lymph % (Auto) [place] % (Auto) [place] # Seg Neutrophils % Seg Neuts % (Manual) Lymphocytes % (Manual) Seg Neutrophils # Seg Neutrophils # Man Lymphocytes # (Manual) Monocytes # (Manual) Basophils # (Manual) PT INR APTT ABG pH ABG pO2 ABG HCO3 ABG O2 Saturation ABG Base Excess ABG Hemoglobin Oxyhemoglobin Sodium Potassium Chloride Carbon Dioxide BUN Creatinine Glucose POC Glucose 137 H 129 H 150 H Lactic Acid Calcium Ionized Calcium Phosphorus Magnesium Total Bilirubin AST ALT Alkaline Phosphatase Ammonia Total Creatine Kinase CK-MB (CK-2) CK-MB (CK-2) Rel Index Total Protein Albumin Urine WBC (Auto) Salicylates Acetaminophen Plasma/Serum Alcohol Crossmatch 12/09/19 12/09/19 12/09/19 00:56 05:34 06:13 WBC RBC Hgb Hct MCH RDW Plt Count Lymph % (Auto) [place] % (Auto) [place] # Seg Neutrophils % Seg Neuts % (Manual) Lymphocytes % (Manual) Seg Neutrophils # Seg Neutrophils # Man Lymphocytes # (Manual) Monocytes # (Manual) Basophils # (Manual) PT INR APTT ABG pH ABG pO2 ABG HCO3 ABG O2 Saturation ABG Base Excess ABG Hemoglobin Oxyhemoglobin Sodium 146 H Potassium Chloride Carbon Dioxide BUN 66 H Creatinine 1.9 H Glucose 116 H POC Glucose 130 H 130 H Lactic Acid Calcium Ionized Calcium Phosphorus Magnesium Total Bilirubin AST ALT Alkaline Phosphatase Ammonia Total Creatine Kinase CK-MB (CK-2) CK-MB (CK-2) Rel Index Total Protein Albumin Urine WBC (Auto) Salicylates Acetaminophen Plasma/Serum Alcohol Crossmatch 12/09/19 12/09/19 12/10/19 11:52 17:50 00:14 WBC RBC Hgb Hct MCH RDW Plt Count Lymph % (Auto) [place] % (Auto) [place] # Seg Neutrophils % Seg Neuts % (Manual) Lymphocytes % (Manual) Seg Neutrophils # Seg Neutrophils # Man Lymphocytes # (Manual) Monocytes # (Manual) Basophils # (Manual) PT INR APTT ABG pH ABG pO2 ABG HCO3 ABG O2 Saturation ABG Base Excess ABG Hemoglobin Oxyhemoglobin Sodium Potassium Chloride Carbon Dioxide BUN Creatinine Glucose POC Glucose 135 H 120 H 116 H Lactic Acid Calcium Ionized Calcium Phosphorus Magnesium Total Bilirubin AST ALT Alkaline Phosphatase Ammonia Total Creatine Kinase CK-MB (CK-2) CK-MB (CK-2) Rel Index Total Protein Albumin Urine WBC (Auto) Salicylates Acetaminophen Plasma/Serum Alcohol Crossmatch 12/10/19 12/10/19 12/10/19 05:38 11:38 17:34 WBC RBC Hgb Hct MCH RDW Plt Count Lymph % (Auto) [place] % (Auto) [place] # Seg Neutrophils % Seg Neuts % (Manual) Lymphocytes % (Manual) Seg Neutrophils # Seg Neutrophils # Man Lymphocytes # (Manual) Monocytes # (Manual) Basophils # (Manual) PT INR APTT ABG pH ABG pO2 ABG HCO3 ABG O2 Saturation ABG Base Excess ABG Hemoglobin Oxyhemoglobin Sodium Potassium Chloride Carbon Dioxide BUN Creatinine Glucose POC Glucose 115 H 112 H 130 H Lactic Acid Calcium Ionized Calcium Phosphorus Magnesium Total Bilirubin AST ALT Alkaline Phosphatase Ammonia Total Creatine Kinase CK-MB (CK-2) CK-MB (CK-2) Rel Index Total Protein Albumin Urine WBC (Auto) Salicylates Acetaminophen Plasma/Serum Alcohol Crossmatch 12/11/19 12/11/19 12/11/19 00:20 05:31 12:22 WBC RBC Hgb Hct MCH RDW Plt Count Lymph % (Auto) [place] % (Auto) [place] # Seg Neutrophils % Seg Neuts % (Manual) Lymphocytes % (Manual) Seg Neutrophils # Seg Neutrophils # Man Lymphocytes # (Manual) Monocytes # (Manual) Basophils # (Manual) PT INR APTT ABG pH ABG pO2 ABG HCO3 ABG O2 Saturation ABG Base Excess ABG Hemoglobin Oxyhemoglobin Sodium Potassium Chloride Carbon Dioxide BUN Creatinine Glucose POC Glucose 124 H 132 H 128 H Lactic Acid Calcium Ionized Calcium Phosphorus Magnesium Total Bilirubin AST ALT Alkaline Phosphatase Ammonia Total Creatine Kinase CK-MB (CK-2) CK-MB (CK-2) Rel Index Total Protein Albumin Urine WBC (Auto) Salicylates Acetaminophen Plasma/Serum Alcohol Crossmatch 12/11/19 12/11/19 12/12/19 18:04 23:42 03:51 WBC RBC Hgb Hct MCH RDW Plt Count Lymph % (Auto) [place] % (Auto) [place] # Seg Neutrophils % Seg Neuts % (Manual) Lymphocytes % (Manual) Seg Neutrophils # Seg Neutrophils # Man Lymphocytes # (Manual) Monocytes # (Manual) Basophils # (Manual) PT INR APTT ABG pH ABG pO2 ABG HCO3 ABG O2 Saturation ABG Base Excess ABG Hemoglobin Oxyhemoglobin Sodium 149 H Potassium Chloride Carbon Dioxide 20 L D BUN 77 H Creatinine 2.8 H Glucose POC Glucose 133 H 154 H Lactic Acid Calcium Ionized Calcium Phosphorus Magnesium Total Bilirubin AST ALT Alkaline Phosphatase Ammonia Total Creatine Kinase CK-MB (CK-2) CK-MB (CK-2) Rel Index Total Protein Albumin Urine WBC (Auto) Salicylates Acetaminophen Plasma/Serum Alcohol Crossmatch 12/12/19 12/12/19 12/12/19 05:18 05:26 10:30 WBC 18.0 H RBC 2.51 L Hgb 6.8 L Hct 22.0 L MCH 27 L RDW 19.9 H Plt Count 582 H Lymph % (Auto) [place] % (Auto) [place] # Seg Neutrophils % Seg Neuts % (Manual) Lymphocytes % (Manual) Seg Neutrophils # Seg Neutrophils # Man Lymphocytes # (Manual) Monocytes # (Manual) Basophils # (Manual) PT INR APTT ABG pH ABG pO2 ABG HCO3 ABG O2 Saturation ABG Base Excess ABG Hemoglobin Oxyhemoglobin Sodium Potassium Chloride Carbon Dioxide BUN Creatinine Glucose POC Glucose 135 H Lactic Acid Calcium Ionized Calcium Phosphorus Magnesium Total Bilirubin AST ALT Alkaline Phosphatase Ammonia Total Creatine Kinase CK-MB (CK-2) CK-MB (CK-2) Rel Index Total Protein Albumin Urine WBC (Auto) Salicylates Acetaminophen Plasma/Serum Alcohol Crossmatch See Detail 12/12/19 12/12/19 12/12/19 11:44 18:10 23:21 WBC RBC Hgb Hct MCH RDW Plt Count Lymph % (Auto) [place] % (Auto) [place] # Seg Neutrophils % Seg Neuts % (Manual) Lymphocytes % (Manual) Seg Neutrophils # Seg Neutrophils # Man Lymphocytes # (Manual) Monocytes # (Manual) Basophils # (Manual) PT INR APTT ABG pH ABG pO2 ABG HCO3 ABG O2 Saturation ABG Base Excess ABG Hemoglobin Oxyhemoglobin Sodium Potassium Chloride Carbon Dioxide BUN Creatinine Glucose POC Glucose 108 H 107 H 126 H Lactic Acid Calcium Ionized Calcium Phosphorus Magnesium Total Bilirubin AST ALT Alkaline Phosphatase Ammonia Total Creatine Kinase CK-MB (CK-2) CK-MB (CK-2) Rel Index Total Protein Albumin Urine WBC (Auto) Salicylates Acetaminophen Plasma/Serum Alcohol Crossmatch 12/13/19 12/13/19 12/13/19 05:41 07:48 07:48 WBC 38.3 H RBC 2.37 L Hgb 6.3 L Hct 20.9 L MCH 27 L RDW 20.2 H Plt Count 546 H Lymph % (Auto) [place] % (Auto) [place] # Seg Neutrophils % Seg Neuts % (Manual) 93.0 H Lymphocytes % (Manual) 1.0 L Seg Neutrophils # Seg Neutrophils # Man 35.6 H Lymphocytes # (Manual) 0.4 L Monocytes # (Manual) Basophils # (Manual) 0.4 H PT INR APTT ABG pH ABG pO2 ABG HCO3 ABG O2 Saturation ABG Base Excess ABG Hemoglobin Oxyhemoglobin Sodium 152 H Potassium 3.1 L D Chloride 111.9 H Carbon Dioxide 21 L BUN 53 H Creatinine 1.9 H Glucose 141 H POC Glucose 128 H Lactic Acid Calcium Ionized Calcium Phosphorus Magnesium Total Bilirubin AST ALT Alkaline Phosphatase 316 H Ammonia Total Creatine Kinase CK-MB (CK-2) CK-MB (CK-2) Rel Index Total Protein Albumin 2.4 L Urine WBC (Auto) Salicylates Acetaminophen Plasma/Serum Alcohol Crossmatch 12/13/19 12/13/19 12/14/19 18:17 23:19 05:36 WBC RBC Hgb Hct MCH RDW Plt Count Lymph % (Auto) [place] % (Auto) [place] # Seg Neutrophils % Seg Neuts % (Manual) Lymphocytes % (Manual) Seg Neutrophils # Seg Neutrophils # Man Lymphocytes # (Manual) Monocytes # (Manual) Basophils # (Manual) PT INR APTT ABG pH ABG pO2 ABG HCO3 ABG O2 Saturation ABG Base Excess ABG Hemoglobin Oxyhemoglobin Sodium Potassium Chloride Carbon Dioxide BUN Creatinine Glucose POC Glucose 141 H 158 H 182 H Lactic Acid Calcium Ionized Calcium Phosphorus Magnesium Total Bilirubin AST ALT Alkaline Phosphatase Ammonia Total Creatine Kinase CK-MB (CK-2) CK-MB (CK-2) Rel Index Total Protein Albumin Urine WBC (Auto) Salicylates Acetaminophen Plasma/Serum Alcohol Crossmatch 12/14/19 12/14/19 12/14/19 08:48 08:48 10:31 WBC 33.3 H RBC 2.70 L Hgb 7.9 L 8.0 L Hct 25.3 L 24.0 L MCH RDW 19.2 H Plt Count 476 H Lymph % (Auto) [place] % (Auto) [place] # Seg Neutrophils % Seg Neuts % (Manual) Lymphocytes % (Manual) Seg Neutrophils # Seg Neutrophils # Man Lymphocytes # (Manual) Monocytes # (Manual) Basophils # (Manual) PT INR APTT ABG pH ABG pO2 ABG HCO3 ABG O2 Saturation ABG Base Excess ABG Hemoglobin Oxyhemoglobin Sodium 153 H Potassium 2.5 L* Chloride 114.9 H Carbon Dioxide 20 L BUN 38 H Creatinine 1.4 H Glucose 177 H POC Glucose Lactic Acid Calcium Ionized Calcium Phosphorus Magnesium Total Bilirubin AST ALT Alkaline Phosphatase Ammonia Total Creatine Kinase CK-MB (CK-2) CK-MB (CK-2) Rel Index Total Protein Albumin Urine WBC (Auto) Salicylates Acetaminophen Plasma/Serum Alcohol Crossmatch 12/14/19 12/14/19 12/14/19 12:57 16:15 17:50 WBC RBC Hgb Hct MCH RDW Plt Count Lymph % (Auto) [place] % (Auto) [place] # Seg Neutrophils % Seg Neuts % (Manual) Lymphocytes % (Manual) Seg Neutrophils # Seg Neutrophils # Man Lymphocytes # (Manual) Monocytes # (Manual) Basophils # (Manual) PT INR APTT ABG pH ABG pO2 73.6 L ABG HCO3 ABG O2 Saturation ABG Base Excess ABG Hemoglobin 7.6 L Oxyhemoglobin 94.0 L Sodium Potassium Chloride Carbon Dioxide BUN Creatinine Glucose POC Glucose 174 H 150 H Lactic Acid Calcium Ionized Calcium Phosphorus Magnesium Total Bilirubin AST ALT Alkaline Phosphatase Ammonia Total Creatine Kinase CK-MB (CK-2) CK-MB (CK-2) Rel Index Total Protein Albumin Urine WBC (Auto) Salicylates Acetaminophen Plasma/Serum Alcohol Crossmatch 12/15/19 12/15/19 12/15/19 00:28 05:27 07:23 WBC 30.0 H RBC 3.11 L Hgb 8.6 L Hct 27.7 L MCH RDW 20.0 H Plt Count 473 H Lymph % (Auto) [place] % (Auto) [place] # Seg Neutrophils % Seg Neuts % (Manual) Lymphocytes % (Manual) Seg Neutrophils # Seg Neutrophils # Man Lymphocytes # (Manual) Monocytes # (Manual) Basophils # (Manual) PT INR APTT ABG pH ABG pO2 ABG HCO3 ABG O2 Saturation ABG Base Excess ABG Hemoglobin Oxyhemoglobin Sodium Potassium Chloride Carbon Dioxide BUN Creatinine Glucose POC Glucose 167 H 148 H Lactic Acid Calcium Ionized Calcium Phosphorus Magnesium Total Bilirubin AST ALT Alkaline Phosphatase Ammonia Total Creatine Kinase CK-MB (CK-2) CK-MB (CK-2) Rel Index Total Protein Albumin Urine WBC (Auto) Salicylates Acetaminophen Plasma/Serum Alcohol Crossmatch 12/15/19 12/15/19 12/15/19 07:23 12:21 17:41 WBC RBC Hgb Hct MCH RDW Plt Count Lymph % (Auto) [place] % (Auto) [place] # Seg Neutrophils % Seg Neuts % (Manual) Lymphocytes % (Manual) Seg Neutrophils # Seg Neutrophils # Man Lymphocytes # (Manual) Monocytes # (Manual) Basophils # (Manual) PT INR APTT ABG pH ABG pO2 ABG HCO3 ABG O2 Saturation ABG Base Excess ABG Hemoglobin Oxyhemoglobin Sodium 147 H Potassium 3.5 L D Chloride 111.2 H Carbon Dioxide 19 L BUN 29 H Creatinine Glucose 126 H POC Glucose 154 H 144 H Lactic Acid Calcium Ionized Calcium Phosphorus Magnesium Total Bilirubin AST ALT Alkaline Phosphatase Ammonia Total Creatine Kinase CK-MB (CK-2) CK-MB (CK-2) Rel Index Total Protein Albumin Urine WBC (Auto) Salicylates Acetaminophen Plasma/Serum Alcohol Crossmatch 12/16/19 12/16/19 12/16/19 00:22 05:30 05:44 WBC 30.8 H RBC 2.58 L Hgb 7.1 L Hct 22.7 L MCH RDW 19.6 H Plt Count 451 H Lymph % (Auto) [place] % (Auto) [place] # Seg Neutrophils % Seg Neuts % (Manual) Lymphocytes % (Manual) Seg Neutrophils # Seg Neutrophils # Man Lymphocytes # (Manual) Monocytes # (Manual) Basophils # (Manual) PT INR APTT ABG pH ABG pO2 ABG HCO3 ABG O2 Saturation ABG Base Excess ABG Hemoglobin Oxyhemoglobin Sodium Potassium Chloride Carbon Dioxide BUN Creatinine Glucose POC Glucose 139 H 126 H Lactic Acid Calcium Ionized Calcium Phosphorus Magnesium Total Bilirubin AST ALT Alkaline Phosphatase Ammonia Total Creatine Kinase CK-MB (CK-2) CK-MB (CK-2) Rel Index Total Protein Albumin Urine WBC (Auto) Salicylates Acetaminophen Plasma/Serum Alcohol Crossmatch 12/16/19 12/16/19 12/16/19 05:44 11:48 17:37 WBC RBC Hgb Hct MCH RDW Plt Count Lymph % (Auto) [place] % (Auto) [place] # Seg Neutrophils % Seg Neuts % (Manual) Lymphocytes % (Manual) Seg Neutrophils # Seg Neutrophils # Man Lymphocytes # (Manual) Monocytes # (Manual) Basophils # (Manual) PT INR APTT ABG pH ABG pO2 ABG HCO3 ABG O2 Saturation ABG Base Excess ABG Hemoglobin Oxyhemoglobin Sodium Potassium 3.4 L Chloride 109.2 H Carbon Dioxide 19 L BUN 27 H Creatinine Glucose 124 H POC Glucose 125 H 148 H Lactic Acid Calcium Ionized Calcium Phosphorus Magnesium Total Bilirubin AST ALT Alkaline Phosphatase Ammonia Total Creatine Kinase CK-MB (CK-2) CK-MB (CK-2) Rel Index Total Protein Albumin Urine WBC (Auto) Salicylates Acetaminophen Plasma/Serum Alcohol Crossmatch 12/16/19 12/17/19 12/17/19 23:43 05:28 12:47 WBC RBC Hgb Hct MCH RDW Plt Count Lymph % (Auto) [place] % (Auto) [place] # Seg Neutrophils % Seg Neuts % (Manual) Lymphocytes % (Manual) Seg Neutrophils # Seg Neutrophils # Man Lymphocytes # (Manual) Monocytes # (Manual) Basophils # (Manual) PT INR APTT ABG pH ABG pO2 ABG HCO3 ABG O2 Saturation ABG Base Excess ABG Hemoglobin Oxyhemoglobin Sodium Potassium Chloride Carbon Dioxide BUN Creatinine Glucose POC Glucose 142 H 140 H 125 H Lactic Acid Calcium Ionized Calcium Phosphorus Magnesium Total Bilirubin AST ALT Alkaline Phosphatase Ammonia Total Creatine Kinase CK-MB (CK-2) CK-MB (CK-2) Rel Index Total Protein Albumin Urine WBC (Auto) Salicylates Acetaminophen Plasma/Serum Alcohol Crossmatch 12/17/19 12/17/19 12/17/19 17:05 18:00 Unknown WBC RBC Hgb Hct MCH RDW Plt Count Lymph % (Auto) [place] % (Auto) [place] # Seg Neutrophils % Seg Neuts % (Manual) Lymphocytes % (Manual) Seg Neutrophils # Seg Neutrophils # Man Lymphocytes # (Manual) Monocytes # (Manual) Basophils # (Manual) PT INR APTT ABG pH ABG pO2 68.1 L ABG HCO3 ABG O2 Saturation 93.7 L ABG Base Excess ABG Hemoglobin 5.0 L Oxyhemoglobin 91.7 L Sodium Potassium Chloride Carbon Dioxide BUN Creatinine Glucose POC Glucose 140 H Lactic Acid Calcium Ionized Calcium Phosphorus Magnesium Total Bilirubin AST ALT Alkaline Phosphatase Ammonia Total Creatine Kinase CK-MB (CK-2) CK-MB (CK-2) Rel Index Total Protein Albumin Urine WBC (Auto) Salicylates Acetaminophen Plasma/Serum Alcohol Crossmatch 12/18/19 12/18/19 12/18/19 00:16 04:53 04:53 WBC 28.6 H RBC 2.27 L Hgb 6.3 L Hct 19.5 L* MCH RDW 20.0 H Plt Count 497 H Lymph % (Auto) [place] % (Auto) [place] # Seg Neutrophils % Seg Neuts % (Manual) Lymphocytes % (Manual) Seg Neutrophils # Seg Neutrophils # Man Lymphocytes # (Manual) Monocytes # (Manual) Basophils # (Manual) PT INR APTT ABG pH ABG pO2 ABG HCO3 ABG O2 Saturation ABG Base Excess ABG Hemoglobin Oxyhemoglobin Sodium Potassium Chloride 107.9 H Carbon Dioxide 20 L BUN 27 H Creatinine 0.6 L Glucose 116 H POC Glucose 123 H Lactic Acid Calcium Ionized Calcium Phosphorus Magnesium Total Bilirubin AST ALT Alkaline Phosphatase Ammonia Total Creatine Kinase CK-MB (CK-2) CK-MB (CK-2) Rel Index Total Protein Albumin Urine WBC (Auto) Salicylates Acetaminophen Plasma/Serum Alcohol Crossmatch 12/18/19 12/18/19 12/18/19 06:38 11:22 12:08 WBC RBC Hgb Hct MCH RDW Plt Count Lymph % (Auto) [place] % (Auto) [place] # Seg Neutrophils % Seg Neuts % (Manual) Lymphocytes % (Manual) Seg Neutrophils # Seg Neutrophils # Man Lymphocytes # (Manual) Monocytes # (Manual) Basophils # (Manual) PT INR APTT ABG pH ABG pO2 ABG HCO3 ABG O2 Saturation ABG Base Excess ABG Hemoglobin Oxyhemoglobin Sodium Potassium Chloride Carbon Dioxide BUN Creatinine Glucose POC Glucose 120 H 127 H Lactic Acid Calcium Ionized Calcium Phosphorus Magnesium Total Bilirubin AST ALT Alkaline Phosphatase Ammonia Total Creatine Kinase CK-MB (CK-2) CK-MB (CK-2) Rel Index Total Protein Albumin Urine WBC (Auto) Salicylates Acetaminophen Plasma/Serum Alcohol Crossmatch See Detail 12/18/19 12/18/19 12/18/19 14:05 17:49 23:53 WBC RBC Hgb Hct MCH RDW Plt Count Lymph % (Auto) [place] % (Auto) [place] # Seg Neutrophils % Seg Neuts % (Manual) Lymphocytes % (Manual) Seg Neutrophils # Seg Neutrophils # Man Lymphocytes # (Manual) Monocytes # (Manual) Basophils # (Manual) PT INR APTT ABG pH 7.267 L ABG pO2 69.8 L ABG HCO3 ABG O2 Saturation 88.4 L ABG Base Excess ABG Hemoglobin 7.1 L Oxyhemoglobin 86.4 L Sodium Potassium Chloride Carbon Dioxide BUN Creatinine Glucose POC Glucose 157 H 128 H Lactic Acid Calcium Ionized Calcium Phosphorus Magnesium Total Bilirubin AST ALT Alkaline Phosphatase Ammonia Total Creatine Kinase CK-MB (CK-2) CK-MB (CK-2) Rel Index Total Protein Albumin Urine WBC (Auto) Salicylates Acetaminophen Plasma/Serum Alcohol Crossmatch 12/19/19 12/19/19 12/19/19 03:37 03:37 05:25 WBC 31.3 H RBC 2.60 L Hgb 7.6 L Hct 23.0 L MCH RDW 19.4 H Plt Count 530 H Lymph % (Auto) [place] % (Auto) [place] # Seg Neutrophils % Seg Neuts % (Manual) Lymphocytes % (Manual) Seg Neutrophils # Seg Neutrophils # Man Lymphocytes # (Manual) Monocytes # (Manual) Basophils # (Manual) PT INR APTT ABG pH ABG pO2 ABG HCO3 ABG O2 Saturation ABG Base Excess ABG Hemoglobin Oxyhemoglobin Sodium Potassium Chloride Carbon Dioxide 18 L BUN 36 H Creatinine Glucose 111 H POC Glucose 123 H Lactic Acid Calcium Ionized Calcium Phosphorus Magnesium Total Bilirubin AST ALT Alkaline Phosphatase Ammonia Total Creatine Kinase CK-MB (CK-2) CK-MB (CK-2) Rel Index Total Protein Albumin Urine WBC (Auto) Salicylates Acetaminophen Plasma/Serum Alcohol Crossmatch 12/19/19 12:59 WBC RBC Hgb Hct MCH RDW Plt Count Lymph % (Auto) [place] % (Auto) [place] # Seg Neutrophils % Seg Neuts % (Manual) Lymphocytes % (Manual) Seg Neutrophils # Seg Neutrophils # Man Lymphocytes # (Manual) Monocytes # (Manual) Basophils # (Manual) PT INR APTT ABG pH ABG pO2 ABG HCO3 ABG O2 Saturation ABG Base Excess ABG Hemoglobin Oxyhemoglobin Sodium Potassium Chloride Carbon Dioxide BUN Creatinine Glucose POC Glucose 130 H Lactic Acid Calcium Ionized Calcium Phosphorus Magnesium Total Bilirubin AST ALT Alkaline Phosphatase Ammonia Total Creatine Kinase CK-MB (CK-2) CK-MB (CK-2) Rel Index Total Protein Albumin Urine WBC (Auto) Salicylates Acetaminophen Plasma/Serum Alcohol Crossmatch Allied health notes reviewed: nursing
[2019-12-19] MEDS: fentaNYL 25 MCG/HR PATCH 72HR TD SCH (16:56)
[2019-12-19] MEDS: QUEtiapine 100 MG TAB PO SCH (22:42)
[2019-12-20] MEDS: chlordiazePOXIDE 25 MG CAP PO SCH ×3 (06:48→22:32)
[2019-12-20] MEDS: LACTULOSE 20 GM/30 ML ORAL LIQD PO SCH ×2 (09:34→22:31)
[2019-12-20] MEDS: SENNOSIDES/DOCUSATE SODIUM 8.6/50 MG TAB PO SCH ×2 (09:35→22:33)
[2019-12-20] MEDS: levETIRAcetam 500 MG/5 ML ORAL LIQD PO SCH ×2 (09:35→22:31)
[2019-12-20] MEDS: hydrOXYzine PAMOATE 25 MG CAP PO SCH ×2 (09:35→22:32)
[2019-12-20] MEDS: TAMSULOSIN 0.4 MG CAP PO SCH (09:35)
[2019-12-20] MEDS: MIRTAZAPINE 30 MG TAB PO SCH (09:36)
[2019-12-20] MEDS: SERTRALINE 25 MG TAB PO SCH (09:36)
[2019-12-20] MEDS: VANCOMYCIN 750 MG in SODIUM CHLORIDE 0.9% 250ML 250 ML IV SCH ×2 (09:45→22:40)
[2019-12-20] MEDS: LANSOPRAZOLE 30 MG SOLUTAB FEEDTUBE SCH (09:45)
--- NOTE | 2019-12-20 13:48 | Progress Note ---
Assessment and Plan /Anemia, microcytic -Continue to hold heparin, transfused 2 units of packed RBC -ordered stool for occult blood /Acute metabolic encephalopathy/toxic encephalopathy due to the above - cont supportive care / Anoxic brain injury: suspected CT head: No acute abnormality. neurology consult placed, EEG ordered showed Generalized slowing. No seizures or epileptiform activity. Per neurology : Patient found to have intact corneal/VOR/cough reflexes, and is withdrawing and lower extremities, therefore patient is not found to be brain . However, given that patient had an out of hospital cardiac arrest, the time of which is uncertain, the likelihood of meaningful neurological recovery is somewhat low. /Acute Respiratory failure -s/p intubation, s/p trach and PEG on 12/12 with mechanical ventilation - CTA was done and negative for PE, - Echo quality is poor, showed diastolic dysfunction - continue ICU monitoring - wean OFF vent/O2 as tolerated /Hyperammonemia - likely from liver disease related to EtOH abuse - Patient had elevated ammonia level and treated with lactulose /Metabolic Acidosis -Alcohol ketoacidosis vs hypoprofusion -Continue to monitor /ELevated LFTs, stable now - due to ischemic hepatitis. /Leucocytosis with sepsis - Source MRSA bacteremia and MSSA pneumonia. UA showed pyuria. RUQ US showed no ascites. Completed 7 days of Ceftriaxone on 11/29/2019. - Repeat TTE negative for vegetation. cont abx /MSSA pneumonia: on vancomycin /ALcohol USe Disorder - given ongoing Alcohol use almost daily, s/p IV Thiamine - monitor /Severe hypokalemia -Repleted /Seizure disorder: treat with Keppra /H. Influenzae, tracheobronchitis, treated with abx FUll code, family denies DNR Very poor prognosis The high probability of a clinically significant, sudden or life threatening deterioration of the [neurology,respiratory] system(s) required my full and direct attention, intervention and personal management. The aggregate critical care time was [32] minutes. This time is in addition to time spent performing reported procedures but includes the following: [x] Data Review and interpretation [x] Patient assessment and monitoring of vital signs [x] Documentation [x] Medication orders and management Disposition: prognosis poor. 12/17/19: Day 24 on MV, PEEP 6 FiO2 30%, trying to wean, held sq heparin due to drop in h/h and anemia, renewed restraints, fever appears to be due to worsening pneumonia, UA negative, pCXR Impression: Slight interval worsening of a con solidative opacity in the left mid to lower lung, worrisome for pneumonia in the appropriate clinical setting. Adjust Vancomycin dose continue cefepime with ID following. Swollen right arm with Venous doppler of right arm r/o DVT ordered but not done due to COVID-19, 12/18/19: hb 6.3, transfuse one unit PRBC 12/19/19 : H&H stable, continue to monitor clinical status at ICU 12/19: Continue to monitor at ICU, needs placement Brief History: 54-year-old female with a past medical history of Hypertension, Depression, Tobacco use Disorder, Alcohol use Disorder as confirmed by Daughter and pt's mother presents to the hospital status post cardiac arrest at home. EMS found pt in [place]. They were unable to intubate patient with a ET tube because she was clenching down therefore Joe airway placed. Per the ED physician who evaluated pt, Patient presented with a pulse, intermittent respirations, and bagging support via Joe airway with O2 sat of 100%. Accu-Chek of 71 obtained by EMS. She was intubated in the ER and called for admission. Following admission patient was diagnosed with anoxic brain injury, sepsis with MRSA bacteremia and MSSA pneumonia, alcoholic liver disease. Family member wished for full code, patient currently getting treated with IV antibiotics for sepsis, status post trach and PEG on 12/13/19. Subjective Date of service: 12/20/19 Principal diagnosis: Ac cardiopulmonary arrest; Ac hypoxemic resp failure; Acute encephalopathy Interval history: Patient seen and examined remained on mechanical ventilation with trach, unresponsive, no clinical change family wants to continue full code Discussed with RN at bedside, discussed with insurance case manager for disposition planning Tolerating tube feeding with PEG tube No family member noted at bedside Objective - Constitutional Vitals: Vital Signs - 12hr 12/20/19 12/20/19 12/20/19 02:00 02:15 02:30 Temperature Pulse Rate 108 H 110 H 110 H Pulse Rate [ From Monitor] Respiratory 28 H 28 H 28 H Rate Blood Pressure 104/67 107/65 105/68 O2 Sat by Pulse 97 97 96 Oximetry O2 Sat by Pulse Oximetry [ Assessment] 12/20/19 12/20/19 12/20/19 02:45 03:00 03:15 Temperature Pulse Rate 111 H 109 H 111 H Pulse Rate [ From Monitor] Respiratory 28 H 28 H 28 H Rate Blood Pressure 106/68 108/68 107/67 O2 Sat by Pulse 99 99 97 Oximetry O2 Sat by Pulse Oximetry [ Assessment] 12/20/19 12/20/19 12/20/19 03:30 03:45 03:46 Temperature Pulse Rate 114 H 116 H Pulse Rate [ 115 H From Monitor] Respiratory 28 H 28 H 28 H Rate Blood Pressure 121/79 123/78 O2 Sat by Pulse 98 99 96 Oximetry O2 Sat by Pulse Oximetry [ Assessment] 12/20/19 12/20/19 12/20/19 04:00 04:15 04:30 Temperature 98.6 F Pulse Rate 116 H 119 H 119 H Pulse Rate [ From Monitor] Respiratory 28 H 28 H 28 H Rate Blood Pressure 122/78 126/79 122/73 O2 Sat by Pulse 99 97 98 Oximetry O2 Sat by Pulse Oximetry [ Assessment] 12/20/19 12/20/19 12/20/19 04:32 04:45 05:00 Temperature Pulse Rate 119 H 121 H 120 H Pulse Rate [ From Monitor] Respiratory 28 H 30 H Rate Blood Pressure 122/73 123/80 129/84 O2 Sat by Pulse 98 95 96 Oximetry O2 Sat by Pulse Oximetry [ Assessment] 12/20/19 12/20/19 12/20/19 05:15 05:30 05:45 Temperature Pulse Rate 118 H 122 H 122 H Pulse Rate [ From Monitor] Respiratory 28 H 29 H 29 H Rate Blood Pressure 117/75 123/76 126/79 O2 Sat by Pulse 98 97 95 Oximetry O2 Sat by Pulse Oximetry [ Assessment] 12/20/19 12/20/19 12/20/19 06:00 06:15 06:30 Temperature Pulse Rate 121 H 120 H 119 H Pulse Rate [ From Monitor] Respiratory 28 H 28 H 28 H Rate Blood Pressure 122/74 123/76 121/78 O2 Sat by Pulse 96 96 96 Oximetry O2 Sat by Pulse Oximetry [ Assessment] 12/20/19 12/20/19 12/20/19 06:45 07:00 07:15 Temperature Pulse Rate 122 H 123 H 122 H Pulse Rate [ From Monitor] Respiratory 28 H 29 H 28 H Rate Blood Pressure 123/78 121/85 133/86 O2 Sat by Pulse 95 96 98 Oximetry O2 Sat by Pulse Oximetry [ Assessment] 12/20/19 12/20/19 12/20/19 07:30 07:35 07:45 Temperature Pulse Rate 123 H 123 H Pulse Rate [ From Monitor] Respiratory 29 H 28 H Rate Blood Pressure 126/80 131/85 O2 Sat by Pulse 98 96 Oximetry O2 Sat by Pulse 96 Oximetry [ Assessment] 12/20/19 12/20/19 12/20/19 08:00 08:15 08:30 Temperature 99.3 F Pulse Rate 122 H 123 H 124 H Pulse Rate [ 122 H From Monitor] Respiratory 28 H 28 H 28 H Rate Blood Pressure 134/87 122/74 131/89 O2 Sat by Pulse 98 97 98 Oximetry O2 Sat by Pulse Oximetry [ Assessment] 12/20/19 12/20/19 12/20/19 08:45 09:00 09:15 Temperature Pulse Rate 122 H 126 H 125 H Pulse Rate [ From Monitor] Respiratory 25 H 28 H 28 H Rate Blood Pressure 128/82 127/82 134/88 O2 Sat by Pulse 97 96 96 Oximetry O2 Sat by Pulse Oximetry [ Assessment] 12/20/19 12/20/19 12/20/19 09:30 09:45 10:00 Temperature Pulse Rate 122 H 124 H 124 H Pulse Rate [ From Monitor] Respiratory 28 H 29 H 28 H Rate Blood Pressure 133/88 129/83 135/87 O2 Sat by Pulse 99 98 99 Oximetry O2 Sat by Pulse Oximetry [ Assessment] 12/20/19 12/20/19 12/20/19 10:15 10:30 10:45 Temperature Pulse Rate 126 H 130 H 128 H Pulse Rate [ From Monitor] Respiratory 31 H 30 H 28 H Rate Blood Pressure 140/88 130/82 139/88 O2 Sat by Pulse 99 97 99 Oximetry O2 Sat by Pulse Oximetry [ Assessment] 12/20/19 12/20/19 12/20/19 11:00 11:15 11:30 Temperature Pulse Rate 128 H 127 H 132 H Pulse Rate [ From Monitor] Respiratory 29 H 28 H 30 H Rate Blood Pressure 131/84 134/82 142/93 O2 Sat by Pulse 98 97 97 Oximetry O2 Sat by Pulse Oximetry [ Assessment] 12/20/19 12/20/19 11:45 12:00 Temperature 99.6 F Pulse Rate 129 H 129 H Pulse Rate [ From Monitor] Respiratory 28 H 28 H Rate Blood Pressure 143/94 138/89 O2 Sat by Pulse 97 97 Oximetry O2 Sat by Pulse Oximetry [ Assessment] - Labs CBC & Chem 7: 12/21/19 03:28 12/21/19 03:28 Labs: Abnormal lab results 12/19/19 12/20/19 12/20/19 Range/Units 18:33 00:00 05:46 POC Glucose 118 H 135 H 131 H (70-105) 12/20/19 Range/Units 12:31 POC Glucose 128 H (70-105)
--- NOTE | 2019-12-20 14:24 | Progress Note ---
Assessment and Plan Acute cardiopulmonary arrest with ROSC Acute hypoxemic respiratory failure on MVS MRSA Bacteremia MRSA pneumonia Acute lobxexscz-nmsah-ystykf encephalopathy Metabolic acidosis/alcoholic acidosis/Lactic acidosis( resolved) Ischemic hepatitis Leucocytosis - persistent Erythrocytosis Tobacco use disorder Alcohol use Disorder -Discussed with RT, the need for daily SBT-continue the same while monitoring response -Continue antibiotics- Vancomycin to complete course. Monitor for toxicities -CXR, ABG in the morning -Wean off Propofol -Discontinue [place], had been in for urinary retention -Continue all care as documented below. -Continue with MVS, Lung protective strategies, monitor airway pressures -VAP bundle addressed -Continue aspiration precautions, HOB>40 -Continue daily assessment for readiness for SBT -Continue Stress ulcer prophylaxis -Continue enteric nutritional support at goal rate. Monitor glycemic control, with target blood glucose 140-180 mg/dL while critically ill. -Avoid hypoglycemia - Continue to wean supplemental oxygen for target O2 sat's > 90% -Continue thiamine, multivitamin and electrolyte replacement -Continue to avoid nephrotoxins, adjust all medications for GFR and CrCL - Continue bronchodilators with pulmonary hygiene - Continue prn analgesia per CPOT score - Continue to maintain of sleep-wake cycle, avoid delirium - PT/OT/ROM exercises - Continue mobility protocol and skin assessment per protocol for pressure ulcer prevention - Continue to monitor for clinical seizures - continue other care per attending / other consultants CONDITION: CRITICAL PROGNOSIS: GUARDED CODE STATUS: FULL CODE The high probability of a clinically significant, sudden or life-threatening deterioration of the [respiratory, cardiovascular,GI/hepatology/Neurology] system(s) required my full and direct attention, intervention and personal management. The aggregate critical care time was [31] minutes without overlap. Time includes spent on; [x] Data Review and interpretation [x] Patient assessment and monitoring of vital signs [x] Documentation [x] Medication orders and management Subjective Date of service: 12/20/19 Principal diagnosis: Ac cardiopulmonary arrest; Ac hypoxemic resp failure; Acute encephalopathy Interval history: Patient is seen today for: Acute cardiopulmonary arrest with ROSC; Acute hypoxemic respiratory failure; Acute metabolic-toxic encephalopathy; Ischemic hepatitis; Leucocytosis with lactic acidosis; Tobacco use disorder; Alcohol use Disorder; s/p tracheostomy Seen and examined at bedside; 24hour events reviewed; nursing and respiratory care staff consulted; no adverse overnight events reported to me; resting peacefully in bed; no fevers,s/p trach, s/p PEG. Tolerating tube feedings On Propofol at 5mcg Objective Vital Signs - 12hr 12/20/19 12/20/19 12/20/19 02:30 02:45 03:00 Temperature Pulse Rate 110 H 111 H 109 H Pulse Rate [ From Monitor] Respiratory 28 H 28 H 28 H Rate Blood Pressure 105/68 106/68 108/68 O2 Sat by Pulse 96 99 99 Oximetry O2 Sat by Pulse Oximetry [ Assessment] 12/20/19 12/20/19 12/20/19 03:15 03:30 03:45 Temperature Pulse Rate 111 H 114 H 116 H Pulse Rate [ From Monitor] Respiratory 28 H 28 H 28 H Rate Blood Pressure 107/67 121/79 123/78 O2 Sat by Pulse 97 98 99 Oximetry O2 Sat by Pulse Oximetry [ Assessment] 12/20/19 12/20/19 12/20/19 03:46 04:00 04:15 Temperature 98.6 F Pulse Rate 116 H 119 H Pulse Rate [ 115 H From Monitor] Respiratory 28 H 28 H 28 H Rate Blood Pressure 122/78 126/79 O2 Sat by Pulse 96 99 97 Oximetry O2 Sat by Pulse Oximetry [ Assessment] 12/20/19 12/20/19 12/20/19 04:30 04:32 04:45 Temperature Pulse Rate 119 H 119 H 121 H Pulse Rate [ From Monitor] Respiratory 28 H 28 H Rate Blood Pressure 122/73 122/73 123/80 O2 Sat by Pulse 98 98 95 Oximetry O2 Sat by Pulse Oximetry [ Assessment] 12/20/19 12/20/19 12/20/19 05:00 05:15 05:30 Temperature Pulse Rate 120 H 118 H 122 H Pulse Rate [ From Monitor] Respiratory 30 H 28 H 29 H Rate Blood Pressure 129/84 117/75 123/76 O2 Sat by Pulse 96 98 97 Oximetry O2 Sat by Pulse Oximetry [ Assessment] 12/20/19 12/20/19 12/20/19 05:45 06:00 06:15 Temperature Pulse Rate 122 H 121 H 120 H Pulse Rate [ From Monitor] Respiratory 29 H 28 H 28 H Rate Blood Pressure 126/79 122/74 123/76 O2 Sat by Pulse 95 96 96 Oximetry O2 Sat by Pulse Oximetry [ Assessment] 12/20/19 12/20/19 12/20/19 06:30 06:45 07:00 Temperature Pulse Rate 119 H 122 H 123 H Pulse Rate [ From Monitor] Respiratory 28 H 28 H 29 H Rate Blood Pressure 121/78 123/78 121/85 O2 Sat by Pulse 96 95 96 Oximetry O2 Sat by Pulse Oximetry [ Assessment] 12/20/19 12/20/19 12/20/19 07:15 07:30 07:35 Temperature Pulse Rate 122 H 123 H Pulse Rate [ From Monitor] Respiratory 28 H 29 H Rate Blood Pressure 133/86 126/80 O2 Sat by Pulse 98 98 Oximetry O2 Sat by Pulse 96 Oximetry [ Assessment] 12/20/19 12/20/19 12/20/19 07:45 08:00 08:15 Temperature 99.3 F Pulse Rate 123 H 122 H 123 H Pulse Rate [ 122 H From Monitor] Respiratory 28 H 28 H 28 H Rate Blood Pressure 131/85 134/87 122/74 O2 Sat by Pulse 96 98 97 Oximetry O2 Sat by Pulse Oximetry [ Assessment] 12/20/19 12/20/19 12/20/19 08:30 08:45 09:00 Temperature Pulse Rate 124 H 122 H 126 H Pulse Rate [ From Monitor] Respiratory 28 H 25 H 28 H Rate Blood Pressure 131/89 128/82 127/82 O2 Sat by Pulse 98 97 96 Oximetry O2 Sat by Pulse Oximetry [ Assessment] 12/20/19 12/20/19 12/20/19 09:15 09:30 09:45 Temperature Pulse Rate 125 H 122 H 124 H Pulse Rate [ From Monitor] Respiratory 28 H 28 H 29 H Rate Blood Pressure 134/88 133/88 129/83 O2 Sat by Pulse 96 99 98 Oximetry O2 Sat by Pulse Oximetry [ Assessment] 12/20/19 12/20/19 12/20/19 10:00 10:15 10:30 Temperature Pulse Rate 124 H 126 H 130 H Pulse Rate [ From Monitor] Respiratory 28 H 31 H 30 H Rate Blood Pressure 135/87 140/88 130/82 O2 Sat by Pulse 99 99 97 Oximetry O2 Sat by Pulse Oximetry [ Assessment] 12/20/19 12/20/19 12/20/19 10:45 11:00 11:15 Temperature Pulse Rate 128 H 128 H 127 H Pulse Rate [ From Monitor] Respiratory 28 H 29 H 28 H Rate Blood Pressure 139/88 131/84 134/82 O2 Sat by Pulse 99 98 97 Oximetry O2 Sat by Pulse Oximetry [ Assessment] 12/20/19 12/20/19 12/20/19 11:30 11:45 12:00 Temperature 99.6 F Pulse Rate 132 H 129 H 129 H Pulse Rate [ From Monitor] Respiratory 30 H 28 H 28 H Rate Blood Pressure 142/93 143/94 138/89 O2 Sat by Pulse 97 97 97 Oximetry O2 Sat by Pulse Oximetry [ Assessment] Constitutional: no acute distress, other (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, with midline tra cheostomy and mild dys-synchrony) Eyes: non-icteric ENT: oropharynx moist, other (s/p trach) Neck: supple, no lymphadenopathy, no JVD Effort: mildly labored Ascultation: Bilateral: diminished breath sounds, rhonchi Percussion: Bilateral: not dull Cardiovascular: regular rate and rhythm (tachycardia), other (S1,S2) Gastrointestinal: normoactive bowel sounds, soft, non-tender, non-distended Integumentary: normal Extremities: no cyanosis, no edema, pulses normal, no ischemia or petechiae Neurologic: unable to assess, other (awake but not tracking voice ) Psychiatric: other (Psychiatric: Unable to assess) CBC and BMP: 12/19/19 03:37 12/19/19 03:37 ABG, PT/INR, D-dimer: ABG ABG pH 7.267 pH Units (7.350-7.450) L 12/18/19 14:05 ABG pCO2 57.6 mm Hg 12/18/19 14:05 ABG pO2 69.8 mm Hg (80.0-90.0) L 12/18/19 14:05 ABG O2 Saturation 88.4 % (95.0-99.0) L 12/18/19 14:05 PT/INR, D-dimer PT 17.0 Sec. (12.2-14.9) H 11/23/19 03:47 INR 1.36 (0.87-1.13) H 11/23/19 03:47 Abnormal lab findings: Abnormal Labs 11/22/19 11/22/19 11/22/19 23:17 23:18 23:27 WBC 21.2 H RBC 3.59 L Hgb 9.8 L Hct MCH 27 L RDW 18.6 H Plt Count 454 H Lymph % (Auto) [place] % (Auto) [place] # Seg Neutrophils % Seg Neuts % (Manual) 86.0 H Lymphocytes % (Manual) 9.0 L Seg Neutrophils # Seg Neutrophils # Man 18.2 H Lymphocytes # (Manual) Monocytes # (Manual) 1.1 H Basophils # (Manual) PT INR APTT ABG pH ABG pO2 ABG HCO3 ABG O2 Saturation ABG Base Excess ABG Hemoglobin Oxyhemoglobin Sodium Potassium Chloride Carbon Dioxide BUN Creatinine Glucose POC Glucose 53 L Lactic Acid Calcium Ionized Calcium Phosphorus Magnesium Total Bilirubin AST ALT Alkaline Phosphatase Ammonia Total Creatine Kinase CK-MB (CK-2) CK-MB (CK-2) Rel Index Total Protein Albumin Urine WBC (Auto) 40.0 H Salicylates Acetaminophen Plasma/Serum Alcohol Crossmatch 11/22/19 11/22/19 11/22/19 23:27 23:27 23:27 WBC RBC Hgb Hct MCH RDW Plt Count Lymph % (Auto) [place] % (Auto) [place] # Seg Neutrophils % Seg Neuts % (Manual) Lymphocytes % (Manual) Seg Neutrophils # Seg Neutrophils # Man Lymphocytes # (Manual) Monocytes # (Manual) Basophils # (Manual) PT INR APTT ABG pH ABG pO2 ABG HCO3 ABG O2 Saturation ABG Base Excess ABG Hemoglobin Oxyhemoglobin Sodium Potassium 2.4 L* Chloride 85.1 L Carbon Dioxide 19 L BUN Creatinine 0.5 L Glucose 261 H POC Glucose Lactic Acid Calcium Ionized Calcium Phosphorus Magnesium Total Bilirubin AST 609 H ALT 152 H Alkaline Phosphatase 160 H Ammonia 117.0 H Total Creatine Kinase 139 H CK-MB (CK-2) 8.3 H CK-MB (CK-2) Rel Index 5.9 H Total Protein Albumin 3.6 L Urine WBC (Auto) Salicylates < 0.3 L Acetaminophen Plasma/Serum Alcohol Crossmatch 11/22/19 11/22/19 11/23/19 23:27 23:27 01:10 WBC RBC Hgb Hct MCH RDW Plt Count Lymph % (Auto) [place] % (Auto) [place] # Seg Neutrophils % Seg Neuts % (Manual) Lymphocytes % (Manual) Seg Neutrophils # Seg Neutrophils # Man Lymphocytes # (Manual) Monocytes # (Manual) Basophils # (Manual) PT INR APTT ABG pH 7.273 L ABG pO2 209.7 H ABG HCO3 ABG O2 Saturation 99.2 H ABG Base Excess -3.9 L ABG Hemoglobin 10.6 L Oxyhemoglobin 93.9 L Sodium Potassium Chloride Carbon Dioxide BUN Creatinine Glucose POC Glucose Lactic Acid Calcium Ionized Calcium Phosphorus Magnesium Total Bilirubin AST ALT Alkaline Phosphatase Ammonia Total Creatine Kinase CK-MB (CK-2) CK-MB (CK-2) Rel Index Total Protein Albumin Urine WBC (Auto) Salicylates Acetaminophen < 5.0 L Plasma/Serum Alcohol 0.08 H Crossmatch 11/23/19 11/23/19 11/23/19 01:19 01:19 03:47 WBC RBC Hgb Hct MCH RDW Plt Count Lymph % (Auto) [place] % (Auto) [place] # Seg Neutrophils % Seg Neuts % (Manual) Lymphocytes % (Manual) Seg Neutrophils # Seg Neutrophils # Man Lymphocytes # (Manual) Monocytes # (Manual) Basophils # (Manual) PT 16.3 H INR 1.29 H APTT ABG pH ABG pO2 ABG HCO3 ABG O2 Saturation ABG Base Excess ABG Hemoglobin Oxyhemoglobin Sodium Potassium Chloride Carbon Dioxide BUN Creatinine Glucose POC Glucose Lactic Acid 2.10 H* 5.00 H* Calcium Ionized Calcium Phosphorus Magnesium Total Bilirubin AST ALT Alkaline Phosphatase Ammonia Total Creatine Kinase CK-MB (CK-2) CK-MB (CK-2) Rel Index Total Protein Albumin Urine WBC (Auto) Salicylates Acetaminophen Plasma/Serum Alcohol Crossmatch 11/23/19 11/23/19 11/23/19 03:47 03:47 04:53 WBC RBC Hgb 9.4 L Hct MCH RDW Plt Count Lymph % (Auto) [place] % (Auto) [place] # Seg Neutrophils % Seg Neuts % (Manual) Lymphocytes % (Manual) Seg Neutrophils # Seg Neutrophils # Man Lymphocytes # (Manual) Monocytes # (Manual) Basophils # (Manual) PT 17.0 H INR 1.36 H APTT 128.2 H* ABG pH ABG pO2 ABG HCO3 ABG O2 Saturation ABG Base Excess ABG Hemoglobin Oxyhemoglobin Sodium Potassium Chloride Carbon Dioxide 18 L BUN Creatinine 0.5 L Glucose 105 H POC Glucose Lactic Acid Calcium 8.3 L Ionized Calcium Phosphorus 2.40 L Magnesium Total Bilirubin 1.30 H AST 761 H ALT 158 H Alkaline Phosphatase 143 H Ammonia Total Creatine Kinase CK-MB (CK-2) CK-MB (CK-2) Rel Index Total Protein Albumin 2.8 L Urine WBC (Auto) Salicylates Acetaminophen Plasma/Serum Alcohol Crossmatch 11/23/19 11/23/19 11/23/19 05:12 06:32 06:32 WBC 16.8 H RBC 3.31 L Hgb 8.9 L Hct 28.7 L MCH 27 L RDW 18.6 H Plt Count Lymph % (Auto) [place] % (Auto) [place] # Seg Neutrophils % Seg Neuts % (Manual) 94.0 H Lymphocytes % (Manual) 1.0 L Seg Neutrophils # Seg Neutrophils # Man 15.8 H Lymphocytes # (Manual) 0.2 L Monocytes # (Manual) Basophils # (Manual) PT INR APTT ABG pH ABG pO2 ABG HCO3 ABG O2 Saturation ABG Base Excess -3.2 L ABG Hemoglobin 9.0 L Oxyhemoglobin 93.6 L Sodium Potassium Chloride Carbon Dioxide BUN Creatinine Glucose POC Glucose Lactic Acid Calcium Ionized Calcium 4.5 L Phosphorus Magnesium Total Bilirubin AST ALT Alkaline Phosphatase Ammonia Total Creatine Kinase CK-MB (CK-2) CK-MB (CK-2) Rel Index Total Protein Albumin Urine WBC (Auto) Salicylates Acetaminophen Plasma/Serum Alcohol Crossmatch 11/23/19 11/24/19 11/24/19 06:32 04:35 04:35 WBC RBC Hgb Hct MCH RDW Plt Count Lymph % (Auto) [place] % (Auto) [place] # Seg Neutrophils % Seg Neuts % (Manual) Lymphocytes % (Manual) Seg Neutrophils # Seg Neutrophils # Man Lymphocytes # (Manual) Monocytes # (Manual) Basophils # (Manual) PT INR APTT ABG pH ABG pO2 ABG HCO3 ABG O2 Saturation ABG Base Excess ABG Hemoglobin Oxyhemoglobin Sodium Potassium Chloride Carbon Dioxide BUN Creatinine Glucose POC Glucose Lactic Acid 3.30 H* Calcium Ionized Calcium Phosphorus Magnesium 1.40 L Total Bilirubin AST ALT Alkaline Phosphatase Ammonia 98.0 H Total Creatine Kinase CK-MB (CK-2) CK-MB (CK-2) Rel Index Total Protein Albumin Urine WBC (Auto) Salicylates Acetaminophen Plasma/Serum Alcohol Crossmatch 11/24/19 11/25/19 11/25/19 05:22 04:34 05:05 WBC 17.3 H RBC 2.88 L Hgb 7.8 L Hct 24.6 L MCH 27 L RDW 18.5 H Plt Count Lymph % (Auto) 7.7 L [place] % (Auto) 9.7 H [place] # 1.7 H Seg Neutrophils % 82.2 H Seg Neuts % (Manual) Lymphocytes % (Manual) Seg Neutrophils # 14.2 H Seg Neutrophils # Man Lymphocytes # (Manual) Monocytes # (Manual) Basophils # (Manual) PT INR APTT ABG pH 7.475 H ABG pO2 ABG HCO3 29.4 H 32.3 H ABG O2 Saturation ABG Base Excess 5.4 H 6.9 H ABG Hemoglobin 9.0 L 10.6 L Oxyhemoglobin 94.3 L Sodium Potassium Chloride Carbon Dioxide BUN Creatinine Glucose POC Glucose Lactic Acid Calcium Ionized Calcium Phosphorus Magnesium Total Bilirubin AST ALT Alkaline Phosphatase Ammonia Total Creatine Kinase CK-MB (CK-2) CK-MB (CK-2) Rel Index Total Protein Albumin Urine WBC (Auto) Salicylates Acetaminophen Plasma/Serum Alcohol Crossmatch 11/25/19 11/25/19 11/26/19 05:05 22:46 03:31 WBC RBC Hgb Hct MCH RDW Plt Count Lymph % (Auto) [place] % (Auto) [place] # Seg Neutrophils % Seg Neuts % (Manual) Lymphocytes % (Manual) Seg Neutrophils # Seg Neutrophils # Man Lymphocytes # (Manual) Monocytes # (Manual) Basophils # (Manual) PT INR APTT ABG pH 7.459 H ABG pO2 ABG HCO3 34.2 H ABG O2 Saturation ABG Base Excess 9.4 H ABG Hemoglobin 7.6 L Oxyhemoglobin 94.8 L Sodium 152 H D 147 H Potassium 2.3 L* D 2.8 L* D Chloride 107.8 H Carbon Dioxide 31 H D 33 H BUN Creatinine 0.6 L 0.6 L Glucose 148 H 177 H POC Glucose Lactic Acid Calcium Ionized Calcium Phosphorus Magnesium Total Bilirubin AST 105 H ALT 71 H Alkaline Phosphatase 155 H Ammonia Total Creatine Kinase CK-MB (CK-2) CK-MB (CK-2) Rel Index Total Protein 5.2 L D Albumin 2.9 L Urine WBC (Auto) Salicylates Acetaminophen Plasma/Serum Alcohol Crossmatch 11/26/19 11/26/19 11/27/19 08:24 08:24 04:20 WBC 12.0 H RBC 3.00 L Hgb 8.0 L 9.3 L Hct 25.9 L 29.7 L MCH 27 L RDW 18.5 H Plt Count Lymph % (Auto) [place] % (Auto) [place] # Seg Neutrophils % Seg Neuts % (Manual) 89.0 H Lymphocytes % (Manual) 4.0 L Seg Neutrophils # Seg Neutrophils # Man 10.7 H Lymphocytes # (Manual) 0.5 L Monocytes # (Manual) Basophils # (Manual) PT INR APTT ABG pH ABG pO2 ABG HCO3 ABG O2 Saturation ABG Base Excess ABG Hemoglobin Oxyhemoglobin Sodium 146 H Potassium 3.4 L D Chloride Carbon Dioxide BUN Creatinine 0.5 L Glucose 165 H POC Glucose Lactic Acid Calcium Ionized Calcium Phosphorus Magnesium Total Bilirubin AST 57 H ALT Alkaline Phosphatase 166 H Ammonia Total Creatine Kinase CK-MB (CK-2) CK-MB (CK-2) Rel Index Total Protein Albumin 2.9 L Urine WBC (Auto) Salicylates Acetaminophen Plasma/Serum Alcohol Crossmatch 11/27/19 11/27/19 11/27/19 04:28 04:28 04:42 WBC RBC Hgb Hct MCH RDW Plt Count Lymph % (Auto) [place] % (Auto) [place] # Seg Neutrophils % Seg Neuts % (Manual) Lymphocytes % (Manual) Seg Neutrophils # Seg Neutrophils # Man Lymphocytes # (Manual) Monocytes # (Manual) Basophils # (Manual) PT INR APTT ABG pH 7.470 H ABG pO2 74.0 L ABG HCO3 33.8 H ABG O2 Saturation ABG Base Excess 9.1 H ABG Hemoglobin 8.7 L Oxyhemoglobin 94.7 L Sodium 146 H Potassium 2.9 L* Chloride Carbon Dioxide BUN 25 H Creatinine Glucose 213 H POC Glucose Lactic Acid Calcium Ionized Calcium Phosphorus 1.00 L Magnesium Total Bilirubin AST ALT Alkaline Phosphatase Ammonia Total Creatine Kinase CK-MB (CK-2) CK-MB (CK-2) Rel Index Total Protein Albumin Urine WBC (Auto) Salicylates Acetaminophen Plasma/Serum Alcohol Crossmatch 11/27/19 11/27/19 11/27/19 05:37 12:20 15:46 WBC RBC Hgb Hct MCH RDW Plt Count Lymph % (Auto) [place] % (Auto) [place] # Seg Neutrophils % Seg Neuts % (Manual) Lymphocytes % (Manual) Seg Neutrophils # Seg Neutrophils # Man Lymphocytes # (Manual) Monocytes # (Manual) Basophils # (Manual) PT INR APTT ABG pH ABG pO2 ABG HCO3 ABG O2 Saturation ABG Base Excess ABG Hemoglobin Oxyhemoglobin Sodium 146 H Potassium 3.5 L D Chloride Carbon Dioxide BUN 24 H Creatinine 0.6 L Glucose 187 H POC Glucose 117 H 220 H Lactic Acid Calcium Ionized Calcium Phosphorus Magnesium Total Bilirubin AST ALT Alkaline Phosphatase Ammonia Total Creatine Kinase CK-MB (CK-2) CK-MB (CK-2) Rel Index Total Protein Albumin Urine WBC (Auto) Salicylates Acetaminophen Plasma/Serum Alcohol Crossmatch 11/27/19 11/28/19 11/28/19 17:28 05:00 05:02 WBC RBC Hgb Hct MCH RDW Plt Count Lymph % (Auto) [place] % (Auto) [place] # Seg Neutrophils % Seg Neuts % (Manual) Lymphocytes % (Manual) Seg Neutrophils # Seg Neutrophils # Man Lymphocytes # (Manual) Monocytes # (Manual) Basophils # (Manual) PT INR APTT ABG pH ABG pO2 72.4 L ABG HCO3 33.6 H ABG O2 Saturation 94.1 L ABG Base Excess 7.3 H ABG Hemoglobin Oxyhemoglobin 91.8 L Sodium 146 H Potassium 3.3 L Chloride Carbon Dioxide BUN 25 H Creatinine 0.6 L Glucose 176 H POC Glucose 198 H Lactic Acid Calcium Ionized Calcium Phosphorus Magnesium Total Bilirubin AST ALT Alkaline Phosphatase Ammonia Total Creatine Kinase CK-MB (CK-2) CK-MB (CK-2) Rel Index Total Protein Albumin Urine WBC (Auto) Salicylates Acetaminophen Plasma/Serum Alcohol Crossmatch 11/28/19 11/28/19 11/29/19 05:02 18:55 10:43 WBC 15.2 H 19.0 H RBC 3.06 L 3.01 L Hgb 8.3 L 8.3 L Hct 27.0 L 26.4 L MCH 27 L RDW 19.0 H 19.7 H Plt Count 479 H 611 H Lymph % (Auto) [place] % (Auto) [place] # Seg Neutrophils % Seg Neuts % (Manual) 92.0 H Lymphocytes % (Manual) 2.0 L Seg Neutrophils # Seg Neutrophils # Man 14.0 H Lymphocytes # (Manual) 0.3 L Monocytes # (Manual) Basophils # (Manual) PT INR APTT ABG pH ABG pO2 ABG HCO3 ABG O2 Saturation ABG Base Excess ABG Hemoglobin Oxyhemoglobin Sodium Potassium Chloride Carbon Dioxide BUN Creatinine Glucose POC Glucose 138 H Lactic Acid Calcium Ionized Calcium Phosphorus Magnesium Total Bilirubin AST ALT Alkaline Phosphatase Ammonia Total Creatine Kinase CK-MB (CK-2) CK-MB (CK-2) Rel Index Total Protein Albumin Urine WBC (Auto) Salicylates Acetaminophen Plasma/Serum Alcohol Crossmatch 11/29/19 11/29/19 11/29/19 10:43 12:27 19:25 WBC RBC Hgb Hct MCH RDW Plt Count Lymph % (Auto) [place] % (Auto) [place] # Seg Neutrophils % Seg Neuts % (Manual) Lymphocytes % (Manual) Seg Neutrophils # Seg Neutrophils # Man Lymphocytes # (Manual) Monocytes # (Manual) Basophils # (Manual) PT INR APTT ABG pH ABG pO2 ABG HCO3 ABG O2 Saturation ABG Base Excess ABG Hemoglobin Oxyhemoglobin Sodium Potassium 2.8 L* Chloride Carbon Dioxide BUN 20 H Creatinine 0.5 L Glucose 121 H POC Glucose 128 H 120 H Lactic Acid Calcium Ionized Calcium Phosphorus Magnesium Total Bilirubin AST ALT Alkaline Phosphatase Ammonia Total Creatine Kinase CK-MB (CK-2) CK-MB (CK-2) Rel Index Total Protein Albumin Urine WBC (Auto) Salicylates Acetaminophen Plasma/Serum Alcohol Crossmatch 11/29/19 11/30/19 11/30/19 23:46 04:10 05:02 WBC RBC Hgb Hct MCH RDW Plt Count Lymph % (Auto) [place] % (Auto) [place] # Seg Neutrophils % Seg Neuts % (Manual) Lymphocytes % (Manual) Seg Neutrophils # Seg Neutrophils # Man Lymphocytes # (Manual) Monocytes # (Manual) Basophils # (Manual) PT INR APTT ABG pH ABG pO2 76.3 L ABG HCO3 32.5 H ABG O2 Saturation ABG Base Excess 6.9 H ABG Hemoglobin 8.0 L Oxyhemoglobin 92.6 L Sodium Potassium Chloride Carbon Dioxide BUN Creatinine Glucose POC Glucose 116 H 128 H Lactic Acid Calcium Ionized Calcium Phosphorus Magnesium Total Bilirubin AST ALT Alkaline Phosphatase Ammonia Total Creatine Kinase CK-MB (CK-2) CK-MB (CK-2) Rel Index Total Protein Albumin Urine WBC (Auto) Salicylates Acetaminophen Plasma/Serum Alcohol Crossmatch 11/30/19 11/30/19 11/30/19 05:25 05:25 12:59 WBC 18.4 H RBC 3.10 L Hgb 8.5 L Hct 27.5 L MCH 27 L RDW 20.9 H Plt Count 691 H Lymph % (Auto) 7.1 L [place] % (Auto) 7.7 H [place] # 1.4 H Seg Neutrophils % 83.4 H Seg Neuts % (Manual) Lymphocytes % (Manual) Seg Neutrophils # 15.4 H Seg Neutrophils # Man Lymphocytes # (Manual) Monocytes # (Manual) Basophils # (Manual) PT INR APTT ABG pH ABG pO2 ABG HCO3 ABG O2 Saturation ABG Base Excess ABG Hemoglobin Oxyhemoglobin Sodium 146 H Potassium Chloride 107.2 H Carbon Dioxide BUN Creatinine 0.5 L Glucose 132 H POC Glucose 124 H Lactic Acid Calcium Ionized Calcium Phosphorus Magnesium Total Bilirubin AST 246 H ALT 274 H Alkaline Phosphatase 203 H Ammonia Total Creatine Kinase CK-MB (CK-2) CK-MB (CK-2) Rel Index Total Protein 5.4 L Albumin 2.9 L Urine WBC (Auto) Salicylates Acetaminophen Plasma/Serum Alcohol Crossmatch 11/30/19 12/01/19 12/01/19 17:53 00:05 05:10 WBC RBC Hgb Hct MCH RDW Plt Count Lymph % (Auto) [place] % (Auto) [place] # Seg Neutrophils % Seg Neuts % (Manual) Lymphocytes % (Manual) Seg Neutrophils # Seg Neutrophils # Man Lymphocytes # (Manual) Monocytes # (Manual) Basophils # (Manual) PT INR APTT ABG pH ABG pO2 ABG HCO3 ABG O2 Saturation ABG Base Excess ABG Hemoglobin Oxyhemoglobin Sodium Potassium Chloride Carbon Dioxide BUN Creatinine Glucose POC Glucose 113 H 143 H 145 H Lactic Acid Calcium Ionized Calcium Phosphorus Magnesium Total Bilirubin AST ALT Alkaline Phosphatase Ammonia Total Creatine Kinase CK-MB (CK-2) CK-MB (CK-2) Rel Index Total Protein Albumin Urine WBC (Auto) Salicylates Acetaminophen Plasma/Serum Alcohol Crossmatch 12/01/19 12/01/19 12/01/19 05:33 08:23 08:23 WBC 22.7 H RBC 2.88 L Hgb 7.9 L Hct 25.2 L MCH 27 L RDW 21.0 H Plt Count 732 H Lymph % (Auto) [place] % (Auto) [place] # Seg Neutrophils % Seg Neuts % (Manual) 91.0 H Lymphocytes % (Manual) 3.0 L Seg Neutrophils # Seg Neutrophils # Man 20.7 H Lymphocytes # (Manual) 0.7 L Monocytes # (Manual) 1.1 H Basophils # (Manual) PT INR APTT ABG pH ABG pO2 68.6 L ABG HCO3 34.1 H ABG O2 Saturation ABG Base Excess 9.0 H ABG Hemoglobin 6.5 L Oxyhemoglobin 94.7 L Sodium Potassium Chloride Carbon Dioxide BUN Creatinine 0.5 L Glucose 125 H POC Glucose Lactic Acid Calcium Ionized Calcium Phosphorus Magnesium Total Bilirubin AST ALT Alkaline Phosphatase Ammonia Total Creatine Kinase CK-MB (CK-2) CK-MB (CK-2) Rel Index Total Protein Albumin Urine WBC (Auto) Salicylates Acetaminophen Plasma/Serum Alcohol Crossmatch 12/01/19 12/01/19 12/01/19 13:21 17:54 20:59 WBC RBC Hgb Hct MCH RDW Plt Count Lymph % (Auto) [place] % (Auto) [place] # Seg Neutrophils % Seg Neuts % (Manual) Lymphocytes % (Manual) Seg Neutrophils # Seg Neutrophils # Man Lymphocytes # (Manual) Monocytes # (Manual) Basophils # (Manual) PT INR APTT ABG pH ABG pO2 78.3 L ABG HCO3 33.8 H ABG O2 Saturation 94.9 L ABG Base Excess 7.9 H ABG Hemoglobin 11.5 L Oxyhemoglobin 92.3 L Sodium Potassium Chloride Carbon Dioxide BUN Creatinine Glucose POC Glucose 111 H 115 H Lactic Acid Calcium Ionized Calcium Phosphorus Magnesium Total Bilirubin AST ALT Alkaline Phosphatase Ammonia Total Creatine Kinase CK-MB (CK-2) CK-MB (CK-2) Rel Index Total Protein Albumin Urine WBC (Auto) Salicylates Acetaminophen Plasma/Serum Alcohol Crossmatch 12/02/19 12/03/19 12/04/19 12:55 20:00 04:26 WBC 15.2 H RBC 2.69 L Hgb 7.4 L Hct 23.6 L MCH 27 L RDW 19.9 H Plt Count 838 H Lymph % (Auto) [place] % (Auto) [place] # Seg Neutrophils % Seg Neuts % (Manual) Lymphocytes % (Manual) Seg Neutrophils # Seg Neutrophils # Man Lymphocytes # (Manual) Monocytes # (Manual) Basophils # (Manual) PT INR APTT ABG pH ABG pO2 68.3 L ABG HCO3 33.5 H ABG O2 Saturation 93.5 L ABG Base Excess 8.4 H ABG Hemoglobin 7.3 L Oxyhemoglobin 90.9 L Sodium Potassium Chloride Carbon Dioxide BUN Creatinine Glucose POC Glucose 107 H Lactic Acid Calcium Ionized Calcium Phosphorus Magnesium Total Bilirubin AST ALT Alkaline Phosphatase Ammonia Total Creatine Kinase CK-MB (CK-2) CK-MB (CK-2) Rel Index Total Protein Albumin Urine WBC (Auto) Salicylates Acetaminophen Plasma/Serum Alcohol Crossmatch 03/12/04/19 12/04/19 04:26 07:45 12:02 WBC 15.9 H RBC 2.88 L Hgb 7.9 L Hct 25.1 L MCH RDW 20.4 H Plt Count 839 H Lymph % (Auto) 11.3 L [place] % (Auto) 15.2 H [place] # 2.4 H Seg Neutrophils % 72.4 H Seg Neuts % (Manual) Lymphocytes % (Manual) Seg Neutrophils # 11.5 H Seg Neutrophils # Man Lymphocytes # (Manual) Monocytes # (Manual) Basophils # (Manual) PT INR APTT ABG pH ABG pO2 ABG HCO3 ABG O2 Saturation ABG Base Excess ABG Hemoglobin Oxyhemoglobin Sodium Potassium Chloride 96.5 L Carbon Dioxide BUN 21 H Creatinine 0.6 L Glucose 107 H POC Glucose 138 H Lactic Acid Calcium Ionized Calcium Phosphorus Magnesium Total Bilirubin AST ALT Alkaline Phosphatase Ammonia Total Creatine Kinase CK-MB (CK-2) CK-MB (CK-2) Rel Index Total Protein Albumin Urine WBC (Auto) Salicylates Acetaminophen Plasma/Serum Alcohol Crossmatch 12/04/19 12/05/19 12/05/19 18:16 11:55 18:36 WBC RBC Hgb Hct MCH RDW Plt Count Lymph % (Auto) [place] % (Auto) [place] # Seg Neutrophils % Seg Neuts % (Manual) Lymphocytes % (Manual) Seg Neutrophils # Seg Neutrophils # Man Lymphocytes # (Manual) Monocytes # (Manual) Basophils # (Manual) PT INR APTT ABG pH ABG pO2 ABG HCO3 ABG O2 Saturation ABG Base Excess ABG Hemoglobin Oxyhemoglobin Sodium Potassium Chloride Carbon Dioxide BUN Creatinine Glucose POC Glucose 135 H 125 H 135 H Lactic Acid Calcium Ionized Calcium Phosphorus Magnesium Total Bilirubin AST ALT Alkaline Phosphatase Ammonia Total Creatine Kinase CK-MB (CK-2) CK-MB (CK-2) Rel Index Total Protein Albumin Urine WBC (Auto) Salicylates Acetaminophen Plasma/Serum Alcohol Crossmatch 12/05/19 12/06/19 12/06/19 23:30 04:14 05:43 WBC RBC Hgb Hct MCH RDW Plt Count Lymph % (Auto) [place] % (Auto) [place] # Seg Neutrophils % Seg Neuts % (Manual) Lymphocytes % (Manual) Seg Neutrophils # Seg Neutrophils # Man Lymphocytes # (Manual) Monocytes # (Manual) Basophils # (Manual) PT INR APTT ABG pH ABG pO2 ABG HCO3 ABG O2 Saturation ABG Base Excess ABG Hemoglobin Oxyhemoglobin Sodium Potassium 5.6 H Chloride 95.0 L Carbon Dioxide BUN 48 H Creatinine 1.3 H D Glucose POC Glucose 126 H 121 H Lactic Acid Calcium Ionized Calcium Phosphorus Magnesium Total Bilirubin AST 89 H ALT 98 H Alkaline Phosphatase 476 H Ammonia Total Creatine Kinase CK-MB (CK-2) CK-MB (CK-2) Rel Index Total Protein Albumin 2.8 L Urine WBC (Auto) Salicylates Acetaminophen Plasma/Serum Alcohol Crossmatch 12/06/19 12/06/19 12/07/19 10:39 14:34 00:19 WBC 17.3 H RBC 2.60 L Hgb 7.1 L Hct 22.7 L MCH 27 L RDW 20.1 H Plt Count 832 H Lymph % (Auto) [place] % (Auto) [place] # Seg Neutrophils % Seg Neuts % (Manual) Lymphocytes % (Manual) Seg Neutrophils # Seg Neutrophils # Man Lymphocytes # (Manual) Monocytes # (Manual) Basophils # (Manual) PT INR APTT ABG pH ABG pO2 ABG HCO3 ABG O2 Saturation ABG Base Excess ABG Hemoglobin Oxyhemoglobin Sodium Potassium Chloride Carbon Dioxide BUN Creatinine Glucose POC Glucose 128 H 136 H Lactic Acid Calcium Ionized Calcium Phosphorus Magnesium Total Bilirubin AST ALT Alkaline Phosphatase Ammonia Total Creatine Kinase CK-MB (CK-2) CK-MB (CK-2) Rel Index Total Protein Albumin Urine WBC (Auto) Salicylates Acetaminophen Plasma/Serum Alcohol Crossmatch 12/07/19 12/07/19 12/07/19 03:44 03:44 05:53 WBC 16.2 H RBC 2.56 L Hgb 7.1 L Hct 22.3 L MCH RDW 19.4 H Plt Count 782 H Lymph % (Auto) [place] % (Auto) [place] # Seg Neutrophils % Seg Neuts % (Manual) Lymphocytes % (Manual) Seg Neutrophils # Seg Neutrophils # Man Lymphocytes # (Manual) Monocytes # (Manual) Basophils # (Manual) PT INR APTT ABG pH ABG pO2 ABG HCO3 ABG O2 Saturation ABG Base Excess ABG Hemoglobin Oxyhemoglobin Sodium Potassium Chloride 95.6 L Carbon Dioxide BUN 56 H Creatinine 1.4 H Glucose 120 H POC Glucose 128 H Lactic Acid Calcium 10.3 H Ionized Calcium Phosphorus Magnesium Total Bilirubin AST ALT Alkaline Phosphatase Ammonia Total Creatine Kinase CK-MB (CK-2) CK-MB (CK-2) Rel Index Total Protein Albumin Urine WBC (Auto) Salicylates Acetaminophen Plasma/Serum Alcohol Crossmatch 12/07/19 12/07/19 12/08/19 12:54 23:47 00:20 WBC RBC Hgb Hct MCH RDW Plt Count Lymph % (Auto) [place] % (Auto) [place] # Seg Neutrophils % Seg Neuts % (Manual) Lymphocytes % (Manual) Seg Neutrophils # Seg Neutrophils # Man Lymphocytes # (Manual) Monocytes # (Manual) Basophils # (Manual) PT INR APTT ABG pH ABG pO2 ABG HCO3 ABG O2 Saturation ABG Base Excess ABG Hemoglobin Oxyhemoglobin Sodium Potassium Chloride Carbon Dioxide BUN Creatinine Glucose POC Glucose 128 H 130 H 124 H Lactic Acid Calcium Ionized Calcium Phosphorus Magnesium Total Bilirubin AST ALT Alkaline Phosphatase Ammonia Total Creatine Kinase CK-MB (CK-2) CK-MB (CK-2) Rel Index Total Protein Albumin Urine WBC (Auto) Salicylates Acetaminophen Plasma/Serum Alcohol Crossmatch 12/08/19 12/08/19 12/08/19 06:38 12:04 18:26 WBC RBC Hgb Hct MCH RDW Plt Count Lymph % (Auto) [place] % (Auto) [place] # Seg Neutrophils % Seg Neuts % (Manual) Lymphocytes % (Manual) Seg Neutrophils # Seg Neutrophils # Man Lymphocytes # (Manual) Monocytes # (Manual) Basophils # (Manual) PT INR APTT ABG pH ABG pO2 ABG HCO3 ABG O2 Saturation ABG Base Excess ABG Hemoglobin Oxyhemoglobin Sodium Potassium Chloride Carbon Dioxide BUN Creatinine Glucose POC Glucose 137 H 129 H 150 H Lactic Acid Calcium Ionized Calcium Phosphorus Magnesium Total Bilirubin AST ALT Alkaline Phosphatase Ammonia Total Creatine Kinase CK-MB (CK-2) CK-MB (CK-2) Rel Index Total Protein Albumin Urine WBC (Auto) Salicylates Acetaminophen Plasma/Serum Alcohol Crossmatch 12/09/19 12/09/19 12/09/19 00:56 05:34 06:13 WBC RBC Hgb Hct MCH RDW Plt Count Lymph % (Auto) [place] % (Auto) [place] # Seg Neutrophils % Seg Neuts % (Manual) Lymphocytes % (Manual) Seg Neutrophils # Seg Neutrophils # Man Lymphocytes # (Manual) Monocytes # (Manual) Basophils # (Manual) PT INR APTT ABG pH ABG pO2 ABG HCO3 ABG O2 Saturation ABG Base Excess ABG Hemoglobin Oxyhemoglobin Sodium 146 H Potassium Chloride Carbon Dioxide BUN 66 H Creatinine 1.9 H Glucose 116 H POC Glucose 130 H 130 H Lactic Acid Calcium Ionized Calcium Phosphorus Magnesium Total Bilirubin AST ALT Alkaline Phosphatase Ammonia Total Creatine Kinase CK-MB (CK-2) CK-MB (CK-2) Rel Index Total Protein Albumin Urine WBC (Auto) Salicylates Acetaminophen Plasma/Serum Alcohol Crossmatch 12/09/19 12/09/19 12/10/19 11:52 17:50 00:14 WBC RBC Hgb Hct MCH RDW Plt Count Lymph % (Auto) [place] % (Auto) [place] # Seg Neutrophils % Seg Neuts % (Manual) Lymphocytes % (Manual) Seg Neutrophils # Seg Neutrophils # Man Lymphocytes # (Manual) Monocytes # (Manual) Basophils # (Manual) PT INR APTT ABG pH ABG pO2 ABG HCO3 ABG O2 Saturation ABG Base Excess ABG Hemoglobin Oxyhemoglobin Sodium Potassium Chloride Carbon Dioxide BUN Creatinine Glucose POC Glucose 135 H 120 H 116 H Lactic Acid Calcium Ionized Calcium Phosphorus Magnesium Total Bilirubin AST ALT Alkaline Phosphatase Ammonia Total Creatine Kinase CK-MB (CK-2) CK-MB (CK-2) Rel Index Total Protein Albumin Urine WBC (Auto) Salicylates Acetaminophen Plasma/Serum Alcohol Crossmatch 12/10/19 12/10/19 12/10/19 05:38 11:38 17:34 WBC RBC Hgb Hct MCH RDW Plt Count Lymph % (Auto) [place] % (Auto) [place] # Seg Neutrophils % Seg Neuts % (Manual) Lymphocytes % (Manual) Seg Neutrophils # Seg Neutrophils # Man Lymphocytes # (Manual) Monocytes # (Manual) Basophils # (Manual) PT INR APTT ABG pH ABG pO2 ABG HCO3 ABG O2 Saturation ABG Base Excess ABG Hemoglobin Oxyhemoglobin Sodium Potassium Chloride Carbon Dioxide BUN Creatinine Glucose POC Glucose 115 H 112 H 130 H Lactic Acid Calcium Ionized Calcium Phosphorus Magnesium Total Bilirubin AST ALT Alkaline Phosphatase Ammonia Total Creatine Kinase CK-MB (CK-2) CK-MB (CK-2) Rel Index Total Protein Albumin Urine WBC (Auto) Salicylates Acetaminophen Plasma/Serum Alcohol Crossmatch 12/11/19 12/11/19 12/11/19 00:20 05:31 12:22 WBC RBC Hgb Hct MCH RDW Plt Count Lymph % (Auto) [place] % (Auto) [place] # Seg Neutrophils % Seg Neuts % (Manual) Lymphocytes % (Manual) Seg Neutrophils # Seg Neutrophils # Man Lymphocytes # (Manual) Monocytes # (Manual) Basophils # (Manual) PT INR APTT ABG pH ABG pO2 ABG HCO3 ABG O2 Saturation ABG Base Excess ABG Hemoglobin Oxyhemoglobin Sodium Potassium Chloride Carbon Dioxide BUN Creatinine Glucose POC Glucose 124 H 132 H 128 H Lactic Acid Calcium Ionized Calcium Phosphorus Magnesium Total Bilirubin AST ALT Alkaline Phosphatase Ammonia Total Creatine Kinase CK-MB (CK-2) CK-MB (CK-2) Rel Index Total Protein Albumin Urine WBC (Auto) Salicylates Acetaminophen Plasma/Serum Alcohol Crossmatch 12/11/19 12/11/19 12/12/19 18:04 23:42 03:51 WBC RBC Hgb Hct MCH RDW Plt Count Lymph % (Auto) [place] % (Auto) [place] # Seg Neutrophils % Seg Neuts % (Manual) Lymphocytes % (Manual) Seg Neutrophils # Seg Neutrophils # Man Lymphocytes # (Manual) Monocytes # (Manual) Basophils # (Manual) PT INR APTT ABG pH ABG pO2 ABG HCO3 ABG O2 Saturation ABG Base Excess ABG Hemoglobin Oxyhemoglobin Sodium 149 H Potassium Chloride Carbon Dioxide 20 L D BUN 77 H Creatinine 2.8 H Glucose POC Glucose 133 H 154 H Lactic Acid Calcium Ionized Calcium Phosphorus Magnesium Total Bilirubin AST ALT Alkaline Phosphatase Ammonia Total Creatine Kinase CK-MB (CK-2) CK-MB (CK-2) Rel Index Total Protein Albumin Urine WBC (Auto) Salicylates Acetaminophen Plasma/Serum Alcohol Crossmatch 12/12/19 12/12/19 12/12/19 05:18 05:26 10:30 WBC 18.0 H RBC 2.51 L Hgb 6.8 L Hct 22.0 L MCH 27 L RDW 19.9 H Plt Count 582 H Lymph % (Auto) [place] % (Auto) [place] # Seg Neutrophils % Seg Neuts % (Manual) Lymphocytes % (Manual) Seg Neutrophils # Seg Neutrophils # Man Lymphocytes # (Manual) Monocytes # (Manual) Basophils # (Manual) PT INR APTT ABG pH ABG pO2 ABG HCO3 ABG O2 Saturation ABG Base Excess ABG Hemoglobin Oxyhemoglobin Sodium Potassium Chloride Carbon Dioxide BUN Creatinine Glucose POC Glucose 135 H Lactic Acid Calcium Ionized Calcium Phosphorus Magnesium Total Bilirubin AST ALT Alkaline Phosphatase Ammonia Total Creatine Kinase CK-MB (CK-2) CK-MB (CK-2) Rel Index Total Protein Albumin Urine WBC (Auto) Salicylates Acetaminophen Plasma/Serum Alcohol Crossmatch See Detail 12/12/19 12/12/19 12/12/19 11:44 18:10 23:21 WBC RBC Hgb Hct MCH RDW Plt Count Lymph % (Auto) [place] % (Auto) [place] # Seg Neutrophils % Seg Neuts % (Manual) Lymphocytes % (Manual) Seg Neutrophils # Seg Neutrophils # Man Lymphocytes # (Manual) Monocytes # (Manual) Basophils # (Manual) PT INR APTT ABG pH ABG pO2 ABG HCO3 ABG O2 Saturation ABG Base Excess ABG Hemoglobin Oxyhemoglobin Sodium Potassium Chloride Carbon Dioxide BUN Creatinine Glucose POC Glucose 108 H 107 H 126 H Lactic Acid Calcium Ionized Calcium Phosphorus Magnesium Total Bilirubin AST ALT Alkaline Phosphatase Ammonia Total Creatine Kinase CK-MB (CK-2) CK-MB (CK-2) Rel Index Total Protein Albumin Urine WBC (Auto) Salicylates Acetaminophen Plasma/Serum Alcohol Crossmatch 12/13/19 12/13/19 12/13/19 05:41 07:48 07:48 WBC 38.3 H RBC 2.37 L Hgb 6.3 L Hct 20.9 L MCH 27 L RDW 20.2 H Plt Count 546 H Lymph % (Auto) [place] % (Auto) [place] # Seg Neutrophils % Seg Neuts % (Manual) 93.0 H Lymphocytes % (Manual) 1.0 L Seg Neutrophils # Seg Neutrophils # Man 35.6 H Lymphocytes # (Manual) 0.4 L Monocytes # (Manual) Basophils # (Manual) 0.4 H PT INR APTT ABG pH ABG pO2 ABG HCO3 ABG O2 Saturation ABG Base Excess ABG Hemoglobin Oxyhemoglobin Sodium 152 H Potassium 3.1 L D Chloride 111.9 H Carbon Dioxide 21 L BUN 53 H Creatinine 1.9 H Glucose 141 H POC Glucose 128 H Lactic Acid Calcium Ionized Calcium Phosphorus Magnesium Total Bilirubin AST ALT Alkaline Phosphatase 316 H Ammonia Total Creatine Kinase CK-MB (CK-2) CK-MB (CK-2) Rel Index Total Protein Albumin 2.4 L Urine WBC (Auto) Salicylates Acetaminophen Plasma/Serum Alcohol Crossmatch 12/13/19 12/13/19 12/14/19 18:17 23:19 05:36 WBC RBC Hgb Hct MCH RDW Plt Count Lymph % (Auto) [place] % (Auto) [place] # Seg Neutrophils % Seg Neuts % (Manual) Lymphocytes % (Manual) Seg Neutrophils # Seg Neutrophils # Man Lymphocytes # (Manual) Monocytes # (Manual) Basophils # (Manual) PT INR APTT ABG pH ABG pO2 ABG HCO3 ABG O2 Saturation ABG Base Excess ABG Hemoglobin Oxyhemoglobin Sodium Potassium Chloride Carbon Dioxide BUN Creatinine Glucose POC Glucose 141 H 158 H 182 H Lactic Acid Calcium Ionized Calcium Phosphorus Magnesium Total Bilirubin AST ALT Alkaline Phosphatase Ammonia Total Creatine Kinase CK-MB (CK-2) CK-MB (CK-2) Rel Index Total Protein Albumin Urine WBC (Auto) Salicylates Acetaminophen Plasma/Serum Alcohol Crossmatch 12/14/19 12/14/19 12/14/19 08:48 08:48 10:31 WBC 33.3 H RBC 2.70 L Hgb 7.9 L 8.0 L Hct 25.3 L 24.0 L MCH RDW 19.2 H Plt Count 476 H Lymph % (Auto) [place] % (Auto) [place] # Seg Neutrophils % Seg Neuts % (Manual) Lymphocytes % (Manual) Seg Neutrophils # Seg Neutrophils # Man Lymphocytes # (Manual) Monocytes # (Manual) Basophils # (Manual) PT INR APTT ABG pH ABG pO2 ABG HCO3 ABG O2 Saturation ABG Base Excess ABG Hemoglobin Oxyhemoglobin Sodium 153 H Potassium 2.5 L* Chloride 114.9 H Carbon Dioxide 20 L BUN 38 H Creatinine 1.4 H Glucose 177 H POC Glucose Lactic Acid Calcium Ionized Calcium Phosphorus Magnesium Total Bilirubin AST ALT Alkaline Phosphatase Ammonia Total Creatine Kinase CK-MB (CK-2) CK-MB (CK-2) Rel Index Total Protein Albumin Urine WBC (Auto) Salicylates Acetaminophen Plasma/Serum Alcohol Crossmatch 12/14/19 12/14/19 12/14/19 12:57 16:15 17:50 WBC RBC Hgb Hct MCH RDW Plt Count Lymph % (Auto) [place] % (Auto) [place] # Seg Neutrophils % Seg Neuts % (Manual) Lymphocytes % (Manual) Seg Neutrophils # Seg Neutrophils # Man Lymphocytes # (Manual) Monocytes # (Manual) Basophils # (Manual) PT INR APTT ABG pH ABG pO2 73.6 L ABG HCO3 ABG O2 Saturation ABG Base Excess ABG Hemoglobin 7.6 L Oxyhemoglobin 94.0 L Sodium Potassium Chloride Carbon Dioxide BUN Creatinine Glucose POC Glucose 174 H 150 H Lactic Acid Calcium Ionized Calcium Phosphorus Magnesium Total Bilirubin AST ALT Alkaline Phosphatase Ammonia Total Creatine Kinase CK-MB (CK-2) CK-MB (CK-2) Rel Index Total Protein Albumin Urine WBC (Auto) Salicylates Acetaminophen Plasma/Serum Alcohol Crossmatch 12/15/19 12/15/19 12/15/19 00:28 05:27 07:23 WBC 30.0 H RBC 3.11 L Hgb 8.6 L Hct 27.7 L MCH RDW 20.0 H Plt Count 473 H Lymph % (Auto) [place] % (Auto) [place] # Seg Neutrophils % Seg Neuts % (Manual) Lymphocytes % (Manual) Seg Neutrophils # Seg Neutrophils # Man Lymphocytes # (Manual) Monocytes # (Manual) Basophils # (Manual) PT INR APTT ABG pH ABG pO2 ABG HCO3 ABG O2 Saturation ABG Base Excess ABG Hemoglobin Oxyhemoglobin Sodium Potassium Chloride Carbon Dioxide BUN Creatinine Glucose POC Glucose 167 H 148 H Lactic Acid Calcium Ionized Calcium Phosphorus Magnesium Total Bilirubin AST ALT Alkaline Phosphatase Ammonia Total Creatine Kinase CK-MB (CK-2) CK-MB (CK-2) Rel Index Total Protein Albumin Urine WBC (Auto) Salicylates Acetaminophen Plasma/Serum Alcohol Crossmatch 12/15/19 12/15/19 12/15/19 07:23 12:21 17:41 WBC RBC Hgb Hct MCH RDW Plt Count Lymph % (Auto) [place] % (Auto) [place] # Seg Neutrophils % Seg Neuts % (Manual) Lymphocytes % (Manual) Seg Neutrophils # Seg Neutrophils # Man Lymphocytes # (Manual) Monocytes # (Manual) Basophils # (Manual) PT INR APTT ABG pH ABG pO2 ABG HCO3 ABG O2 Saturation ABG Base Excess ABG Hemoglobin Oxyhemoglobin Sodium 147 H Potassium 3.5 L D Chloride 111.2 H Carbon Dioxide 19 L BUN 29 H Creatinine Glucose 126 H POC Glucose 154 H 144 H Lactic Acid Calcium Ionized Calcium Phosphorus Magnesium Total Bilirubin AST ALT Alkaline Phosphatase Ammonia Total Creatine Kinase CK-MB (CK-2) CK-MB (CK-2) Rel Index Total Protein Albumin Urine WBC (Auto) Salicylates Acetaminophen Plasma/Serum Alcohol Crossmatch 12/16/19 12/16/19 12/16/19 00:22 05:30 05:44 WBC 30.8 H RBC 2.58 L Hgb 7.1 L Hct 22.7 L MCH RDW 19.6 H Plt Count 451 H Lymph % (Auto) [place] % (Auto) [place] # Seg Neutrophils % Seg Neuts % (Manual) Lymphocytes % (Manual) Seg Neutrophils # Seg Neutrophils # Man Lymphocytes # (Manual) Monocytes # (Manual) Basophils # (Manual) PT INR APTT ABG pH ABG pO2 ABG HCO3 ABG O2 Saturation ABG Base Excess ABG Hemoglobin Oxyhemoglobin Sodium Potassium Chloride Carbon Dioxide BUN Creatinine Glucose POC Glucose 139 H 126 H Lactic Acid Calcium Ionized Calcium Phosphorus Magnesium Total Bilirubin AST ALT Alkaline Phosphatase Ammonia Total Creatine Kinase CK-MB (CK-2) CK-MB (CK-2) Rel Index Total Protein Albumin Urine WBC (Auto) Salicylates Acetaminophen Plasma/Serum Alcohol Crossmatch 12/16/19 12/16/19 12/16/19 05:44 11:48 17:37 WBC RBC Hgb Hct MCH RDW Plt Count Lymph % (Auto) [place] % (Auto) [place] # Seg Neutrophils % Seg Neuts % (Manual) Lymphocytes % (Manual) Seg Neutrophils # Seg Neutrophils # Man Lymphocytes # (Manual) Monocytes # (Manual) Basophils # (Manual) PT INR APTT ABG pH ABG pO2 ABG HCO3 ABG O2 Saturation ABG Base Excess ABG Hemoglobin Oxyhemoglobin Sodium Potassium 3.4 L Chloride 109.2 H Carbon Dioxide 19 L BUN 27 H Creatinine Glucose 124 H POC Glucose 125 H 148 H Lactic Acid Calcium Ionized Calcium Phosphorus Magnesium Total Bilirubin AST ALT Alkaline Phosphatase Ammonia Total Creatine Kinase CK-MB (CK-2) CK-MB (CK-2) Rel Index Total Protein Albumin Urine WBC (Auto) Salicylates Acetaminophen Plasma/Serum Alcohol Crossmatch 12/16/19 12/17/19 12/17/19 23:43 05:28 12:47 WBC RBC Hgb Hct MCH RDW Plt Count Lymph % (Auto) [place] % (Auto) [place] # Seg Neutrophils % Seg Neuts % (Manual) Lymphocytes % (Manual) Seg Neutrophils # Seg Neutrophils # Man Lymphocytes # (Manual) Monocytes # (Manual) Basophils # (Manual) PT INR APTT ABG pH ABG pO2 ABG HCO3 ABG O2 Saturation ABG Base Excess ABG Hemoglobin Oxyhemoglobin Sodium Potassium Chloride Carbon Dioxide BUN Creatinine Glucose POC Glucose 142 H 140 H 125 H Lactic Acid Calcium Ionized Calcium Phosphorus Magnesium Total Bilirubin AST ALT Alkaline Phosphatase Ammonia Total Creatine Kinase CK-MB (CK-2) CK-MB (CK-2) Rel Index Total Protein Albumin Urine WBC (Auto) Salicylates Acetaminophen Plasma/Serum Alcohol Crossmatch 12/17/19 12/17/19 12/17/19 17:05 18:00 Unknown WBC RBC Hgb Hct MCH RDW Plt Count Lymph % (Auto) [place] % (Auto) [place] # Seg Neutrophils % Seg Neuts % (Manual) Lymphocytes % (Manual) Seg Neutrophils # Seg Neutrophils # Man Lymphocytes # (Manual) Monocytes # (Manual) Basophils # (Manual) PT INR APTT ABG pH ABG pO2 68.1 L ABG HCO3 ABG O2 Saturation 93.7 L ABG Base Excess ABG Hemoglobin 5.0 L Oxyhemoglobin 91.7 L Sodium Potassium Chloride Carbon Dioxide BUN Creatinine Glucose POC Glucose 140 H Lactic Acid Calcium Ionized Calcium Phosphorus Magnesium Total Bilirubin AST ALT Alkaline Phosphatase Ammonia Total Creatine Kinase CK-MB (CK-2) CK-MB (CK-2) Rel Index Total Protein Albumin Urine WBC (Auto) Salicylates Acetaminophen Plasma/Serum Alcohol Crossmatch 12/18/19 12/18/19 12/18/19 00:16 04:53 04:53 WBC 28.6 H RBC 2.27 L Hgb 6.3 L Hct 19.5 L* MCH RDW 20.0 H Plt Count 497 H Lymph % (Auto) [place] % (Auto) [place] # Seg Neutrophils % Seg Neuts % (Manual) Lymphocytes % (Manual) Seg Neutrophils # Seg Neutrophils # Man Lymphocytes # (Manual) Monocytes # (Manual) Basophils # (Manual) PT INR APTT ABG pH ABG pO2 ABG HCO3 ABG O2 Saturation ABG Base Excess ABG Hemoglobin Oxyhemoglobin Sodium Potassium Chloride 107.9 H Carbon Dioxide 20 L BUN 27 H Creatinine 0.6 L Glucose 116 H POC Glucose 123 H Lactic Acid Calcium Ionized Calcium Phosphorus Magnesium Total Bilirubin AST ALT Alkaline Phosphatase Ammonia Total Creatine Kinase CK-MB (CK-2) CK-MB (CK-2) Rel Index Total Protein Albumin Urine WBC (Auto) Salicylates Acetaminophen Plasma/Serum Alcohol Crossmatch 12/18/19 12/18/19 12/18/19 06:38 11:22 12:08 WBC RBC Hgb Hct MCH RDW Plt Count Lymph % (Auto) [place] % (Auto) [place] # Seg Neutrophils % Seg Neuts % (Manual) Lymphocytes % (Manual) Seg Neutrophils # Seg Neutrophils # Man Lymphocytes # (Manual) Monocytes # (Manual) Basophils # (Manual) PT INR APTT ABG pH ABG pO2 ABG HCO3 ABG O2 Saturation ABG Base Excess ABG Hemoglobin Oxyhemoglobin Sodium Potassium Chloride Carbon Dioxide BUN Creatinine Glucose POC Glucose 120 H 127 H Lactic Acid Calcium Ionized Calcium Phosphorus Magnesium Total Bilirubin AST ALT Alkaline Phosphatase Ammonia Total Creatine Kinase CK-MB (CK-2) CK-MB (CK-2) Rel Index Total Protein Albumin Urine WBC (Auto) Salicylates Acetaminophen Plasma/Serum Alcohol Crossmatch See Detail 12/18/19 12/18/19 12/18/19 14:05 17:49 23:53 WBC RBC Hgb Hct MCH RDW Plt Count Lymph % (Auto) [place] % (Auto) [place] # Seg Neutrophils % Seg Neuts % (Manual) Lymphocytes % (Manual) Seg Neutrophils # Seg Neutrophils # Man Lymphocytes # (Manual) Monocytes # (Manual) Basophils # (Manual) PT INR APTT ABG pH 7.267 L ABG pO2 69.8 L ABG HCO3 ABG O2 Saturation 88.4 L ABG Base Excess ABG Hemoglobin 7.1 L Oxyhemoglobin 86.4 L Sodium Potassium Chloride Carbon Dioxide BUN Creatinine Glucose POC Glucose 157 H 128 H Lactic Acid Calcium Ionized Calcium Phosphorus Magnesium Total Bilirubin AST ALT Alkaline Phosphatase Ammonia Total Creatine Kinase CK-MB (CK-2) CK-MB (CK-2) Rel Index Total Protein Albumin Urine WBC (Auto) Salicylates Acetaminophen Plasma/Serum Alcohol Crossmatch 12/19/19 12/19/19 12/19/19 03:37 03:37 05:25 WBC 31.3 H RBC 2.60 L Hgb 7.6 L Hct 23.0 L MCH RDW 19.4 H Plt Count 530 H Lymph % (Auto) [place] % (Auto) [place] # Seg Neutrophils % Seg Neuts % (Manual) Lymphocytes % (Manual) Seg Neutrophils # Seg Neutrophils # Man Lymphocytes # (Manual) Monocytes # (Manual) Basophils # (Manual) PT INR APTT ABG pH ABG pO2 ABG HCO3 ABG O2 Saturation ABG Base Excess ABG Hemoglobin Oxyhemoglobin Sodium Potassium Chloride Carbon Dioxide 18 L BUN 36 H Creatinine Glucose 111 H POC Glucose 123 H Lactic Acid Calcium Ionized Calcium Phosphorus Magnesium Total Bilirubin AST ALT Alkaline Phosphatase Ammonia Total Creatine Kinase CK-MB (CK-2) CK-MB (CK-2) Rel Index Total Protein Albumin Urine WBC (Auto) Salicylates Acetaminophen Plasma/Serum Alcohol Crossmatch 04/01/20 04/01/20 04/02/20 12:59 18:33 00:00 WBC RBC Hgb Hct MCH RDW Plt Count Lymph % (Auto) [place] % (Auto) [place] # Seg Neutrophils % Seg Neuts % (Manual) Lymphocytes % (Manual) Seg Neutrophils # Seg Neutrophils # Man Lymphocytes # (Manual) Monocytes # (Manual) Basophils # (Manual) PT INR APTT ABG pH ABG pO2 ABG HCO3 ABG O2 Saturation ABG Base Excess ABG Hemoglobin Oxyhemoglobin Sodium Potassium Chloride Carbon Dioxide BUN Creatinine Glucose POC Glucose 130 H 118 H 135 H Lactic Acid Calcium Ionized Calcium Phosphorus Magnesium Total Bilirubin AST ALT Alkaline Phosphatase Ammonia Total Creatine Kinase CK-MB (CK-2) CK-MB (CK-2) Rel Index Total Protein Albumin Urine WBC (Auto) Salicylates Acetaminophen Plasma/Serum Alcohol Crossmatch 12/20/19 12/20/19 05:46 12:31 WBC RBC Hgb Hct MCH RDW Plt Count Lymph % (Auto) [place] % (Auto) [place] # Seg Neutrophils % Seg Neuts % (Manual) Lymphocytes % (Manual) Seg Neutrophils # Seg Neutrophils # Man Lymphocytes # (Manual) Monocytes # (Manual) Basophils # (Manual) PT INR APTT ABG pH ABG pO2 ABG HCO3 ABG O2 Saturation ABG Base Excess ABG Hemoglobin Oxyhemoglobin Sodium Potassium Chloride Carbon Dioxide BUN Creatinine Glucose POC Glucose 131 H 128 H Lactic Acid Calcium Ionized Calcium Phosphorus Magnesium Total Bilirubin AST ALT Alkaline Phosphatase Ammonia Total Creatine Kinase CK-MB (CK-2) CK-MB (CK-2) Rel Index Total Protein Albumin Urine WBC (Auto) Salicylates Acetaminophen Plasma/Serum Alcohol Crossmatch Chest x-ray: image reviewed (Left lower lobe infiltrate) Additional Studies: MRSA Bacteremia MRSA pneumonia Allied health notes reviewed: RT
[2019-12-20] MEDS: QUEtiapine 100 MG TAB PO SCH (22:32)
[2019-12-21 05:29] LABS: Hematocrit 20.2 % (30.3-42.9); Hemoglobin 6.8 gm/dl (10.1-14.3); Mean Corpuscular HGB Conc 34 % (30-34); Mean Corpuscular Volume 88 fl (79-97); Platelet Count 746 K/mm3 (140-440)
[2019-12-21 05:33] LABS: Red Cell Distribution Width 20.2 % (13.2-15.2)
[2019-12-21 05:42] LABS: Calcium 9.6 mg/dL (8.4-10.2)
[2019-12-21 06:32] LABS: Basophils % (Manual) 0 % (0.0-1.8); Hypochromasia 2+; Total Cells Counted 100
[2019-12-21 06:33] LABS: Target Cells Few
[2019-12-21 06:34] LABS: Platelet Estimate Consistent w Auto; Schistocytes Rare; Spherocytes Few
[2019-12-21] MEDS: chlordiazePOXIDE 25 MG CAP PO SCH ×3 (07:13→22:23)
[2019-12-21] MEDS: MIRTAZAPINE 30 MG TAB PO SCH (10:35)
--- NOTE | 2019-12-21 10:38 | Progress Note ---
Assessment and Plan Acute cardiopulmonary arrest with ROSC Acute hypoxemic respiratory failure on MVS MRSA Bacteremia MRSA pneumonia Acute ojyzvgdkw-uveir-rerbdu encephalopathy Metabolic acidosis/alcoholic acidosis/Lactic acidosis( resolved) Ischemic hepatitis Leucocytosis - persistent Erythrocytosis Tobacco use disorder Alcohol use Disorder -Discussed with RT, the need for daily SBT-continue the same while monitoring response -Continue antibiotics- Vancomycin to complete course. Monitor for toxicities -CXR, ABG in the morning -Wean off Propofol, stop Fentanyl patch -Replace [place], start Flomax -Continue contact isolation for MRSA -Blood cultures to document clearance -Continue all care as documented below. -Continue with MVS, Lung protective strategies, monitor airway pressures -VAP bundle addressed -Continue aspiration precautions, HOB>40 -Continue daily assessment for readiness for SBT -Continue Stress ulcer prophylaxis -Continue enteric nutritional support at goal rate. Monitor glycemic control, with target blood glucose 140-180 mg/dL while critically ill. -Avoid hypoglycemia - Continue to wean supplemental oxygen for target O2 sat's > 90% -Continue thiamine, multivitamin and electrolyte replacement -Continue to avoid nephrotoxins, adjust all medications for GFR and CrCL - Continue bronchodilators with pulmonary hygiene - Continue prn analgesia per CPOT score - Continue to maintain of sleep-wake cycle, avoid delirium - PT/OT/ROM exercises - Continue mobility protocol and skin assessment per protocol for pressure ulcer prevention - Continue to monitor for clinical seizures - continue other care per attending / other consultants CONDITION: CRITICAL PROGNOSIS: GUARDED CODE STATUS: FULL CODE The high probability of a clinically significant, sudden or life-threatening deterioration of the [respiratory, cardiovascular,GI/hepatology/Neurology] system(s) required my full and direct attention, intervention and personal management. The aggregate critical care time was [31] minutes without overlap. Time includes spent on; [x] Data Review and interpretation [x] Patient assessment and monitoring of vital signs [x] Documentation [x] Medication orders and management Subjective Date of service: 12/21/19 Principal diagnosis: Ac cardiopulmonary arrest; Ac hypoxemic resp failure; Acute encephalopathy Interval history: Patient is seen today for: Acute cardiopulmonary arrest with ROSC; Acute hypoxemic respiratory failure; Acute metabolic-toxic encephalopathy; Ischemic hepatitis; Leucocytosis with lactic acidosis; Tobacco use disorder; Alcohol use Disorder; s/p tracheostomy Seen and examined at bedside; 24hour events reviewed; nursing and respiratory care staff consulted; no adverse overnight events reported to me; resting peacefully in bed; no fevers,s/p trach, s/p PEG. Tolerating tube feedings, On going urinary retention- bladder scan >900 by night RN requiring straight catheterizing, now greater than 800 on bladder scan. Did not tolerate SBT, became tacyhpnic; On contact isolation for MRSA On Propofol at 5mcg, minimally responsive Objective Vital Signs - 12hr 12/20/19 12/20/19 12/20/19 22:45 23:00 23:15 Temperature Pulse Rate 110 H 109 H 107 H Pulse Rate [ From Monitor] Respiratory 28 H 28 H 28 H Rate Blood Pressure 107/62 101/64 100/63 O2 Sat by Pulse 95 95 95 Oximetry O2 Sat by Pulse Oximetry [ Assessment] 12/20/19 12/20/19 12/20/19 23:30 23:39 23:45 Temperature Pulse Rate 105 H 106 H 105 H Pulse Rate [ From Monitor] Respiratory 28 H 28 H 28 H Rate Blood Pressure 103/67 103/67 106/68 O2 Sat by Pulse 96 96 97 Oximetry O2 Sat by Pulse Oximetry [ Assessment] 12/21/19 12/21/19 12/21/19 00:00 00:15 00:30 Temperature 97.5 F L Pulse Rate 105 H 103 H 102 H Pulse Rate [ 102 H From Monitor] Respiratory 28 H 28 H 28 H Rate Blood Pressure 128/85 109/72 112/74 O2 Sat by Pulse 95 98 98 Oximetry O2 Sat by Pulse 98 Oximetry [ Assessment] 12/21/19 12/21/19 12/21/19 00:45 01:00 01:15 Temperature Pulse Rate 100 H 100 H 101 H Pulse Rate [ From Monitor] Respiratory 28 H 28 H 28 H Rate Blood Pressure 111/76 113/77 118/82 O2 Sat by Pulse 98 98 99 Oximetry O2 Sat by Pulse Oximetry [ Assessment] 12/21/19 12/21/19 12/21/19 01:30 01:45 02:00 Temperature Pulse Rate 102 H 102 H 102 H Pulse Rate [ From Monitor] Respiratory 28 H 28 H 28 H Rate Blood Pressure 117/80 120/81 117/81 O2 Sat by Pulse 99 99 99 Oximetry O2 Sat by Pulse Oximetry [ Assessment] 12/21/19 12/21/19 12/21/19 02:15 02:30 02:45 Temperature Pulse Rate 104 H 106 H 110 H Pulse Rate [ From Monitor] Respiratory 28 H 26 H 28 H Rate Blood Pressure 113/78 100/46 129/77 O2 Sat by Pulse 99 100 99 Oximetry O2 Sat by Pulse Oximetry [ Assessment] 12/21/19 12/21/19 12/21/19 03:00 03:15 03:28 Temperature 97.2 F L Pulse Rate 109 H 108 H Pulse Rate [ From Monitor] Respiratory 29 H 27 H Rate Blood Pressure 129/77 120/80 O2 Sat by Pulse 99 97 Oximetry O2 Sat by Pulse Oximetry [ Assessment] 12/21/19 12/21/19 12/21/19 03:30 03:45 04:00 Temperature Pulse Rate 108 H 106 H 105 H Pulse Rate [ 104 H From Monitor] Respiratory 28 H 28 H 28 H Rate Blood Pressure 119/79 125/80 128/85 O2 Sat by Pulse 97 96 96 Oximetry O2 Sat by Pulse Oximetry [ Assessment] 12/21/19 12/21/19 12/21/19 04:15 04:30 04:45 Temperature Pulse Rate 107 H 108 H 111 H Pulse Rate [ From Monitor] Respiratory 28 H 28 H 21 Rate Blood Pressure 131/87 133/88 134/89 O2 Sat by Pulse 96 97 98 Oximetry O2 Sat by Pulse Oximetry [ Assessment] 12/21/19 12/21/19 12/21/19 05:00 05:15 05:30 Temperature Pulse Rate 112 H 109 H 110 H Pulse Rate [ From Monitor] Respiratory 26 H 28 H 28 H Rate Blood Pressure 133/90 135/93 140/95 O2 Sat by Pulse 97 99 100 Oximetry O2 Sat by Pulse Oximetry [ Assessment] 12/21/19 12/21/19 12/21/19 05:45 06:00 06:15 Temperature Pulse Rate 110 H 110 H 110 H Pulse Rate [ From Monitor] Respiratory 29 H 28 H 28 H Rate Blood Pressure 136/89 126/84 139/90 O2 Sat by Pulse 99 99 99 Oximetry O2 Sat by Pulse Oximetry [ Assessment] 12/21/19 12/21/19 12/21/19 06:30 06:45 07:00 Temperature Pulse Rate 109 H 110 H 108 H Pulse Rate [ From Monitor] Respiratory 27 H 28 H 28 H Rate Blood Pressure 132/89 134/89 139/90 O2 Sat by Pulse 99 97 99 Oximetry O2 Sat by Pulse Oximetry [ Assessment] 12/21/19 12/21/19 08:00 09:47 Temperature Pulse Rate 116 H 116 H Pulse Rate [ From Monitor] Respiratory 26 H Rate Blood Pressure 138/94 143/97 O2 Sat by Pulse 97 99 Oximetry O2 Sat by Pulse 97 Oximetry [ Assessment] Constitutional: no acute distress, other (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, with midline tracheostomy and no dys-synchrony) Eyes: non-icteric ENT: oropharynx moist, other (s/p trach) Neck: supple, no lymphadenopathy, no JVD Effort: normal Ascultation: Bilateral: diminished breath sounds, rhonchi Percussion: Bilateral: not dull Cardiovascular: regular rate and rhythm (tachycardia), other (S1,S2) Gastrointestinal: normoactive bowel sounds, soft, non-tender, non-distended Integumentary: normal Extremities: no cyanosis, no edema, pulses normal, no ischemia or petechiae Neurologic: unable to assess, other (unresponsive) Psychiatric: other (Psychiatric: Unable to assess) CBC and BMP: 12/23/19 04:30 12/23/19 04:30 ABG, PT/INR, D-dimer: ABG ABG pH 7.267 pH Units (7.350-7.450) L 12/18/19 14:05 ABG pCO2 57.6 mm Hg 12/18/19 14:05 ABG pO2 69.8 mm Hg (80.0-90.0) L 12/18/19 14:05 ABG O2 Saturation 88.4 % (95.0-99.0) L 12/18/19 14:05 PT/INR, D-dimer PT 17.0 Sec. (12.2-14.9) H 11/23/19 03:47 INR 1.36 (0.87-1.13) H 11/23/19 03:47 Abnormal lab findings: Abnormal Labs 11/22/19 11/22/19 11/22/19 23:17 23:18 23:27 WBC 21.2 H RBC 3.59 L Hgb 9.8 L Hct MCH 27 L RDW 18.6 H Plt Count 454 H Lymph % (Auto) [place] % (Auto) [place] # Seg Neutrophils % Seg Neuts % (Manual) 86.0 H Lymphocytes % (Manual) 9.0 L Seg Neutrophils # Seg Neutrophils # Man 18.2 H Lymphocytes # (Manual) Monocytes # (Manual) 1.1 H Eosinophils # (Manual) Basophils # (Manual) PT INR APTT ABG pH ABG pO2 ABG HCO3 ABG O2 Saturation ABG Base Excess ABG Hemoglobin Oxyhemoglobin Sodium Potassium Chloride Carbon Dioxide BUN Creatinine Glucose POC Glucose 53 L Lactic Acid Calcium Ionized Calcium Phosphorus Magnesium Total Bilirubin AST ALT Alkaline Phosphatase Ammonia Total Creatine Kinase CK-MB (CK-2) CK-MB (CK-2) Rel Index Total Protein Albumin Urine WBC (Auto) 40.0 H Vancomycin Trough Salicylates Acetaminophen Plasma/Serum Alcohol Crossmatch 11/22/19 11/22/19 11/22/19 23:27 23:27 23:27 WBC RBC Hgb Hct MCH RDW Plt Count Lymph % (Auto) [place] % (Auto) [place] # Seg Neutrophils % Seg Neuts % (Manual) Lymphocytes % (Manual) Seg Neutrophils # Seg Neutrophils # Man Lymphocytes # (Manual) Monocytes # (Manual) Eosinophils # (Manual) Basophils # (Manual) PT INR APTT ABG pH ABG pO2 ABG HCO3 ABG O2 Saturation ABG Base Excess ABG Hemoglobin Oxyhemoglobin Sodium Potassium 2.4 L* Chloride 85.1 L Carbon Dioxide 19 L BUN Creatinine 0.5 L Glucose 261 H POC Glucose Lactic Acid Calcium Ionized Calcium Phosphorus Magnesium Total Bilirubin AST 609 H ALT 152 H Alkaline Phosphatase 160 H Ammonia 117.0 H Total Creatine Kinase 139 H CK-MB (CK-2) 8.3 H CK-MB (CK-2) Rel Index 5.9 H Total Protein Albumin 3.6 L Urine WBC (Auto) Vancomycin Trough Salicylates < 0.3 L Acetaminophen Plasma/Serum Alcohol Crossmatch 11/22/19 11/22/19 11/23/19 23:27 23:27 01:10 WBC RBC Hgb Hct MCH RDW Plt Count Lymph % (Auto) [place] % (Auto) [place] # Seg Neutrophils % Seg Neuts % (Manual) Lymphocytes % (Manual) Seg Neutrophils # Seg Neutrophils # Man Lymphocytes # (Manual) Monocytes # (Manual) Eosinophils # (Manual) Basophils # (Manual) PT INR APTT ABG pH 7.273 L ABG pO2 209.7 H ABG HCO3 ABG O2 Saturation 99.2 H ABG Base Excess -3.9 L ABG Hemoglobin 10.6 L Oxyhemoglobin 93.9 L Sodium Potassium Chloride Carbon Dioxide BUN Creatinine Glucose POC Glucose Lactic Acid Calcium Ionized Calcium Phosphorus Magnesium Total Bilirubin AST ALT Alkaline Phosphatase Ammonia Total Creatine Kinase CK-MB (CK-2) CK-MB (CK-2) Rel Index Total Protein Albumin Urine WBC (Auto) Vancomycin Trough Salicylates Acetaminophen < 5.0 L Plasma/Serum Alcohol 0.08 H Crossmatch 11/23/19 11/23/19 11/23/19 01:19 01:19 03:47 WBC RBC Hgb Hct MCH RDW Plt Count Lymph % (Auto) [place] % (Auto) [place] # Seg Neutrophils % Seg Neuts % (Manual) Lymphocytes % (Manual) Seg Neutrophils # Seg Neutrophils # Man Lymphocytes # (Manual) Monocytes # (Manual) Eosinophils # (Manual) Basophils # (Manual) PT 16.3 H INR 1.29 H APTT ABG pH ABG pO2 ABG HCO3 ABG O2 Saturation ABG Base Excess ABG Hemoglobin Oxyhemoglobin Sodium Potassium Chloride Carbon Dioxide BUN Creatinine Glucose POC Glucose Lactic Acid 2.10 H* 5.00 H* Calcium Ionized Calcium Phosphorus Magnesium Total Bilirubin AST ALT Alkaline Phosphatase Ammonia Total Creatine Kinase CK-MB (CK-2) CK-MB (CK-2) Rel Index Total Protein Albumin Urine WBC (Auto) Vancomycin Trough Salicylates Acetaminophen Plasma/Serum Alcohol Crossmatch 11/23/19 11/23/19 11/23/19 03:47 03:47 04:53 WBC RBC Hgb 9.4 L Hct MCH RDW Plt Count Lymph % (Auto) [place] % (Auto) [place] # Seg Neutrophils % Seg Neuts % (Manual) Lymphocytes % (Manual) Seg Neutrophils # Seg Neutrophils # Man Lymphocytes # (Manual) Monocytes # (Manual) Eosinophils # (Manual) Basophils # (Manual) PT 17.0 H INR 1.36 H APTT 128.2 H* ABG pH ABG pO2 ABG HCO3 ABG O2 Saturation ABG Base Excess ABG Hemoglobin Oxyhemoglobin Sodium Potassium Chloride Carbon Dioxide 18 L BUN Creatinine 0.5 L Glucose 105 H POC Glucose Lactic Acid Calcium 8.3 L Ionized Calcium Phosphorus 2.40 L Magnesium Total Bilirubin 1.30 H AST 761 H ALT 158 H Alkaline Phosphatase 143 H Ammonia Total Creatine Kinase CK-MB (CK-2) CK-MB (CK-2) Rel Index Total Protein Albumin 2.8 L Urine WBC (Auto) Vancomycin Trough Salicylates Acetaminophen Plasma/Serum Alcohol Crossmatch 03/03/0811/23/19 11/23/19 05:12 06:32 06:32 WBC 16.8 H RBC 3.31 L Hgb 8.9 L Hct 28.7 L MCH 27 L RDW 18.6 H Plt Count Lymph % (Auto) [place] % (Auto) [place] # Seg Neutrophils % Seg Neuts % (Manual) 94.0 H Lymphocytes % (Manual) 1.0 L Seg Neutrophils # Seg Neutrophils # Man 15.8 H Lymphocytes # (Manual) 0.2 L Monocytes # (Manual) Eosinophils # (Manual) Basophils # (Manual) PT INR APTT ABG pH ABG pO2 ABG HCO3 ABG O2 Saturation ABG Base Excess -3.2 L ABG Hemoglobin 9.0 L Oxyhemoglobin 93.6 L Sodium Potassium Chloride Carbon Dioxide BUN Creatinine Glucose POC Glucose Lactic Acid Calcium Ionized Calcium 4.5 L Phosphorus Magnesium Total Bilirubin AST ALT Alkaline Phosphatase Ammonia Total Creatine Kinase CK-MB (CK-2) CK-MB (CK-2) Rel Index Total Protein Albumin Urine WBC (Auto) Vancomycin Trough Salicylates Acetaminophen Plasma/Serum Alcohol Crossmatch 11/23/19 11/24/19 11/24/19 06:32 04:35 04:35 WBC RBC Hgb Hct MCH RDW Plt Count Lymph % (Auto) [place] % (Auto) [place] # Seg Neutrophils % Seg Neuts % (Manual) Lymphocytes % (Manual) Seg Neutrophils # Seg Neutrophils # Man Lymphocytes # (Manual) Monocytes # (Manual) Eosinophils # (Manual) Basophils # (Manual) PT INR APTT ABG pH ABG pO2 ABG HCO3 ABG O2 Saturation ABG Base Excess ABG Hemoglobin Oxyhemoglobin Sodium Potassium Chloride Carbon Dioxide BUN Creatinine Glucose POC Glucose Lactic Acid 3.30 H* Calcium Ionized Calcium Phosphorus Magnesium 1.40 L Total Bilirubin AST ALT Alkaline Phosphatase Ammonia 98.0 H Total Creatine Kinase CK-MB (CK-2) CK-MB (CK-2) Rel Index Total Protein Albumin Urine WBC (Auto) Vancomycin Trough Salicylates Acetaminophen Plasma/Serum Alcohol Crossmatch 11/24/19 11/25/19 11/25/19 05:22 04:34 05:05 WBC 17.3 H RBC 2.88 L Hgb 7.8 L Hct 24.6 L MCH 27 L RDW 18.5 H Plt Count Lymph % (Auto) 7.7 L [place] % (Auto) 9.7 H [place] # 1.7 H Seg Neutrophils % 82.2 H Seg Neuts % (Manual) Lymphocytes % (Manual) Seg Neutrophils # 14.2 H Seg Neutrophils # Man Lymphocytes # (Manual) Monocytes # (Manual) Eosinophils # (Manual) Basophils # (Manual) PT INR APTT ABG pH 7.475 H ABG pO2 ABG HCO3 29.4 H 32.3 H ABG O2 Saturation ABG Base Excess 5.4 H 6.9 H ABG Hemoglobin 9.0 L 10.6 L Oxyhemoglobin 94.3 L Sodium Potassium Chloride Carbon Dioxide BUN Creatinine Glucose POC Glucose Lactic Acid Calcium Ionized Calcium Phosphorus Magnesium Total Bilirubin AST ALT Alkaline Phosphatase Ammonia Total Creatine Kinase CK-MB (CK-2) CK-MB (CK-2) Rel Index Total Protein Albumin Urine WBC (Auto) Vancomycin Trough Salicylates Acetaminophen Plasma/Serum Alcohol Crossmatch 11/25/19 11/25/19 11/26/19 05:05 22:46 03:31 WBC RBC Hgb Hct MCH RDW Plt Count Lymph % (Auto) [place] % (Auto) [place] # Seg Neutrophils % Seg Neuts % (Manual) Lymphocytes % (Manual) Seg Neutrophils # Seg Neutrophils # Man Lymphocytes # (Manual) Monocytes # (Manual) Eosinophils # (Manual) Basophils # (Manual) PT INR APTT ABG pH 7.459 H ABG pO2 ABG HCO3 34.2 H ABG O2 Saturation ABG Base Excess 9.4 H ABG Hemoglobin 7.6 L Oxyhemoglobin 94.8 L Sodium 152 H D 147 H Potassium 2.3 L* D 2.8 L* D Chloride 107.8 H Carbon Dioxide 31 H D 33 H BUN Creatinine 0.6 L 0.6 L Glucose 148 H 177 H POC Glucose Lactic Acid Calcium Ionized Calcium Phosphorus Magnesium Total Bilirubin AST 105 H ALT 71 H Alkaline Phosphatase 155 H Ammonia Total Creatine Kinase CK-MB (CK-2) CK-MB (CK-2) Rel Index Total Protein 5.2 L D Albumin 2.9 L Urine WBC (Auto) Vancomycin Trough Salicylates Acetaminophen Plasma/Serum Alcohol Crossmatch 11/26/19 11/26/19 11/27/19 08:24 08:24 04:20 WBC 12.0 H RBC 3.00 L Hgb 8.0 L 9.3 L Hct 25.9 L 29.7 L MCH 27 L RDW 18.5 H Plt Count Lymph % (Auto) [place] % (Auto) [place] # Seg Neutrophils % Seg Neuts % (Manual) 89.0 H Lymphocytes % (Manual) 4.0 L Seg Neutrophils # Seg Neutrophils # Man 10.7 H Lymphocytes # (Manual) 0.5 L Monocytes # (Manual) Eosinophils # (Manual) Basophils # (Manual) PT INR APTT ABG pH ABG pO2 ABG HCO3 ABG O2 Saturation ABG Base Excess ABG Hemoglobin Oxyhemoglobin Sodium 146 H Potassium 3.4 L D Chloride Carbon Dioxide BUN Creatinine 0.5 L Glucose 165 H POC Glucose Lactic Acid Calcium Ionized Calcium Phosphorus Magnesium Total Bilirubin AST 57 H ALT Alkaline Phosphatase 166 H Ammonia Total Creatine Kinase CK-MB (CK-2) CK-MB (CK-2) Rel Index Total Protein Albumin 2.9 L Urine WBC (Auto) Vancomycin Trough Salicylates Acetaminophen Plasma/Serum Alcohol Crossmatch 11/27/19 11/27/19 11/27/19 04:28 04:28 04:42 WBC RBC Hgb Hct MCH RDW Plt Count Lymph % (Auto) [place] % (Auto) [place] # Seg Neutrophils % Seg Neuts % (Manual) Lymphocytes % (Manual) Seg Neutrophils # Seg Neutrophils # Man Lymphocytes # (Manual) Monocytes # (Manual) Eosinophils # (Manual) Basophils # (Manual) PT INR APTT ABG pH 7.470 H ABG pO2 74.0 L ABG HCO3 33.8 H ABG O2 Saturation ABG Base Excess 9.1 H ABG Hemoglobin 8.7 L Oxyhemoglobin 94.7 L Sodium 146 H Potassium 2.9 L* Chloride Carbon Dioxide BUN 25 H Creatinine Glucose 213 H POC Glucose Lactic Acid Calcium Ionized Calcium Phosphorus 1.00 L Magnesium Total Bilirubin AST ALT Alkaline Phosphatase Ammonia Total Creatine Kinase CK-MB (CK-2) CK-MB (CK-2) Rel Index Total Protein Albumin Urine WBC (Auto) Vancomycin Trough Salicylates Acetaminophen Plasma/Serum Alcohol Crossmatch 11/27/19 11/27/19 11/27/19 05:37 12:20 15:46 WBC RBC Hgb Hct MCH RDW Plt Count Lymph % (Auto) [place] % (Auto) [place] # Seg Neutrophils % Seg Neuts % (Manual) Lymphocytes % (Manual) Seg Neutrophils # Seg Neutrophils # Man Lymphocytes # (Manual) Monocytes # (Manual) Eosinophils # (Manual) Basophils # (Manual) PT INR APTT ABG pH ABG pO2 ABG HCO3 ABG O2 Saturation ABG Base Excess ABG Hemoglobin Oxyhemoglobin Sodium 146 H Potassium 3.5 L D Chloride Carbon Dioxide BUN 24 H Creatinine 0.6 L Glucose 187 H POC Glucose 117 H 220 H Lactic Acid Calcium Ionized Calcium Phosphorus Magnesium Total Bilirubin AST ALT Alkaline Phosphatase Ammonia Total Creatine Kinase CK-MB (CK-2) CK-MB (CK-2) Rel Index Total Protein Albumin Urine WBC (Auto) Vancomycin Trough Salicylates Acetaminophen Plasma/Serum Alcohol Crossmatch 11/27/19 11/28/19 11/28/19 17:28 05:00 05:02 WBC RBC Hgb Hct MCH RDW Plt Count Lymph % (Auto) [place] % (Auto) [place] # Seg Neutrophils % Seg Neuts % (Manual) Lymphocytes % (Manual) Seg Neutrophils # Seg Neutrophils # Man Lymphocytes # (Manual) Monocytes # (Manual) Eosinophils # (Manual) Basophils # (Manual) PT INR APTT ABG pH ABG pO2 72.4 L ABG HCO3 33.6 H ABG O2 Saturation 94.1 L ABG Base Excess 7.3 H ABG Hemoglobin Oxyhemoglobin 91.8 L Sodium 146 H Potassium 3.3 L Chloride Carbon Dioxide BUN 25 H Creatinine 0.6 L Glucose 176 H POC Glucose 198 H Lactic Acid Calcium Ionized Calcium Phosphorus Magnesium Total Bilirubin AST ALT Alkaline Phosphatase Ammonia Total Creatine Kinase CK-MB (CK-2) CK-MB (CK-2) Rel Index Total Protein Albumin Urine WBC (Auto) Vancomycin Trough Salicylates Acetaminophen Plasma/Serum Alcohol Crossmatch 11/28/19 11/28/19 11/29/19 05:02 18:55 10:43 WBC 15.2 H 19.0 H RBC 3.06 L 3.01 L Hgb 8.3 L 8.3 L Hct 27.0 L 26.4 L MCH 27 L RDW 19.0 H 19.7 H Plt Count 479 H 611 H Lymph % (Auto) [place] % (Auto) [place] # Seg Neutrophils % Seg Neuts % (Manual) 92.0 H Lymphocytes % (Manual) 2.0 L Seg Neutrophils # Seg Neutrophils # Man 14.0 H Lymphocytes # (Manual) 0.3 L Monocytes # (Manual) Eosinophils # (Manual) Basophils # (Manual) PT INR APTT ABG pH ABG pO2 ABG HCO3 ABG O2 Saturation ABG Base Excess ABG Hemoglobin Oxyhemoglobin Sodium Potassium Chloride Carbon Dioxide BUN Creatinine Glucose POC Glucose 138 H Lactic Acid Calcium Ionized Calcium Phosphorus Magnesium Total Bilirubin AST ALT Alkaline Phosphatase Ammonia Total Creatine Kinase CK-MB (CK-2) CK-MB (CK-2) Rel Index Total Protein Albumin Urine WBC (Auto) Vancomycin Trough Salicylates Acetaminophen Plasma/Serum Alcohol Crossmatch 11/29/19 11/29/19 11/29/19 10:43 12:27 19:25 WBC RBC Hgb Hct MCH RDW Plt Count Lymph % (Auto) [place] % (Auto) [place] # Seg Neutrophils % Seg Neuts % (Manual) Lymphocytes % (Manual) Seg Neutrophils # Seg Neutrophils # Man Lymphocytes # (Manual) Monocytes # (Manual) Eosinophils # (Manual) Basophils # (Manual) PT INR APTT ABG pH ABG pO2 ABG HCO3 ABG O2 Saturation ABG Base Excess ABG Hemoglobin Oxyhemoglobin Sodium Potassium 2.8 L* Chloride Carbon Dioxide BUN 20 H Creatinine 0.5 L Glucose 121 H POC Glucose 128 H 120 H Lactic Acid Calcium Ionized Calcium Phosphorus Magnesium Total Bilirubin AST ALT Alkaline Phosphatase Ammonia Total Creatine Kinase CK-MB (CK-2) CK-MB (CK-2) Rel Index Total Protein Albumin Urine WBC (Auto) Vancomycin Trough Salicylates Acetaminophen Plasma/Serum Alcohol Crossmatch 11/29/19 11/30/19 11/30/19 23:46 04:10 05:02 WBC RBC Hgb Hct MCH RDW Plt Count Lymph % (Auto) [place] % (Auto) [place] # Seg Neutrophils % Seg Neuts % (Manual) Lymphocytes % (Manual) Seg Neutrophils # Seg Neutrophils # Man Lymphocytes # (Manual) Monocytes # (Manual) Eosinophils # (Manual) Basophils # (Manual) PT INR APTT ABG pH ABG pO2 76.3 L ABG HCO3 32.5 H ABG O2 Saturation ABG Base Excess 6.9 H ABG Hemoglobin 8.0 L Oxyhemoglobin 92.6 L Sodium Potassium Chloride Carbon Dioxide BUN Creatinine Glucose POC Glucose 116 H 128 H Lactic Acid Calcium Ionized Calcium Phosphorus Magnesium Total Bilirubin AST ALT Alkaline Phosphatase Ammonia Total Creatine Kinase CK-MB (CK-2) CK-MB (CK-2) Rel Index Total Protein Albumin Urine WBC (Auto) Vancomycin Trough Salicylates Acetaminophen Plasma/Serum Alcohol Crossmatch 11/30/19 11/30/19 11/30/19 05:25 05:25 12:59 WBC 18.4 H RBC 3.10 L Hgb 8.5 L Hct 27.5 L MCH 27 L RDW 20.9 H Plt Count 691 H Lymph % (Auto) 7.1 L [place] % (Auto) 7.7 H [place] # 1.4 H Seg Neutrophils % 83.4 H Seg Neuts % (Manual) Lymphocytes % (Manual) Seg Neutrophils # 15.4 H Seg Neutrophils # Man Lymphocytes # (Manual) Monocytes # (Manual) Eosinophils # (Manual) Basophils # (Manual) PT INR APTT ABG pH ABG pO2 ABG HCO3 ABG O2 Saturation ABG Base Excess ABG Hemoglobin Oxyhemoglobin Sodium 146 H Potassium Chloride 107.2 H Carbon Dioxide BUN Creatinine 0.5 L Glucose 132 H POC Glucose 124 H Lactic Acid Calcium Ionized Calcium Phosphorus Magnesium Total Bilirubin AST 246 H ALT 274 H Alkaline Phosphatase 203 H Ammonia Total Creatine Kinase CK-MB (CK-2) CK-MB (CK-2) Rel Index Total Protein 5.4 L Albumin 2.9 L Urine WBC (Auto) Vancomycin Trough Salicylates Acetaminophen Plasma/Serum Alcohol Crossmatch 11/30/19 12/01/19 12/01/19 17:53 00:05 05:10 WBC RBC Hgb Hct MCH RDW Plt Count Lymph % (Auto) [place] % (Auto) [place] # Seg Neutrophils % Seg Neuts % (Manual) Lymphocytes % (Manual) Seg Neutrophils # Seg Neutrophils # Man Lymphocytes # (Manual) Monocytes # (Manual) Eosinophils # (Manual) Basophils # (Manual) PT INR APTT ABG pH ABG pO2 ABG HCO3 ABG O2 Saturation ABG Base Excess ABG Hemoglobin Oxyhemoglobin Sodium Potassium Chloride Carbon Dioxide BUN Creatinine Glucose POC Glucose 113 H 143 H 145 H Lactic Acid Calcium Ionized Calcium Phosphorus Magnesium Total Bilirubin AST ALT Alkaline Phosphatase Ammonia Total Creatine Kinase CK-MB (CK-2) CK-MB (CK-2) Rel Index Total Protein Albumin Urine WBC (Auto) Vancomycin Trough Salicylates Acetaminophen Plasma/Serum Alcohol Crossmatch 12/01/19 12/01/19 12/01/19 05:33 08:23 08:23 WBC 22.7 H RBC 2.88 L Hgb 7.9 L Hct 25.2 L MCH 27 L RDW 21.0 H Plt Count 732 H Lymph % (Auto) [place] % (Auto) [place] # Seg Neutrophils % Seg Neuts % (Manual) 91.0 H Lymphocytes % (Manual) 3.0 L Seg Neutrophils # Seg Neutrophils # Man 20.7 H Lymphocytes # (Manual) 0.7 L Monocytes # (Manual) 1.1 H Eosinophils # (Manual) Basophils # (Manual) PT INR APTT ABG pH ABG pO2 68.6 L ABG HCO3 34.1 H ABG O2 Saturation ABG Base Excess 9.0 H ABG Hemoglobin 6.5 L Oxyhemoglobin 94.7 L Sodium Potassium Chloride Carbon Dioxide BUN Creatinine 0.5 L Glucose 125 H POC Glucose Lactic Acid Calcium Ionized Calcium Phosphorus Magnesium Total Bilirubin AST ALT Alkaline Phosphatase Ammonia Total Creatine Kinase CK-MB (CK-2) CK-MB (CK-2) Rel Index Total Protein Albumin Urine WBC (Auto) Vancomycin Trough Salicylates Acetaminophen Plasma/Serum Alcohol Crossmatch 12/01/19 12/01/19 12/01/19 13:21 17:54 20:59 WBC RBC Hgb Hct MCH RDW Plt Count Lymph % (Auto) [place] % (Auto) [place] # Seg Neutrophils % Seg Neuts % (Manual) Lymphocytes % (Manual) Seg Neutrophils # Seg Neutrophils # Man Lymphocytes # (Manual) Monocytes # (Manual) Eosinophils # (Manual) Basophils # (Manual) PT INR APTT ABG pH ABG pO2 78.3 L ABG HCO3 33.8 H ABG O2 Saturation 94.9 L ABG Base Excess 7.9 H ABG Hemoglobin 11.5 L Oxyhemoglobin 92.3 L Sodium Potassium Chloride Carbon Dioxide BUN Creatinine Glucose POC Glucose 111 H 115 H Lactic Acid Calcium Ionized Calcium Phosphorus Magnesium Total Bilirubin AST ALT Alkaline Phosphatase Ammonia Total Creatine Kinase CK-MB (CK-2) CK-MB (CK-2) Rel Index Total Protein Albumin Urine WBC (Auto) Vancomycin Trough Salicylates Acetaminophen Plasma/Serum Alcohol Crossmatch 12/02/19 12/03/19 12/04/19 12:55 20:00 04:26 WBC 15.2 H RBC 2.69 L Hgb 7.4 L Hct 23.6 L MCH 27 L RDW 19.9 H Plt Count 838 H Lymph % (Auto) [place] % (Auto) [place] # Seg Neutrophils % Seg Neuts % (Manual) Lymphocytes % (Manual) Seg Neutrophils # Seg Neutrophils # Man Lymphocytes # (Manual) Monocytes # (Manual) Eosinophils # (Manual) Basophils # (Manual) PT INR APTT ABG pH ABG pO2 68.3 L ABG HCO3 33.5 H ABG O2 Saturation 93.5 L ABG Base Excess 8.4 H ABG Hemoglobin 7.3 L Oxyhemoglobin 90.9 L Sodium Potassium Chloride Carbon Dioxide BUN Creatinine Glucose POC Glucose 107 H Lactic Acid Calcium Ionized Calcium Phosphorus Magnesium Total Bilirubin AST ALT Alkaline Phosphatase Ammonia Total Creatine Kinase CK-MB (CK-2) CK-MB (CK-2) Rel Index Total Protein Albumin Urine WBC (Auto) Vancomycin Trough Salicylates Acetaminophen Plasma/Serum Alcohol Crossmatch 12/04/19 12/04/19 12/04/19 04:26 07:45 12:02 WBC 15.9 H RBC 2.88 L Hgb 7.9 L Hct 25.1 L MCH RDW 20.4 H Plt Count 839 H Lymph % (Auto) 11.3 L [place] % (Auto) 15.2 H [place] # 2.4 H Seg Neutrophils % 72.4 H Seg Neuts % (Manual) Lymphocytes % (Manual) Seg Neutrophils # 11.5 H Seg Neutrophils # Man Lymphocytes # (Manual) Monocytes # (Manual) Eosinophils # (Manual) Basophils # (Manual) PT INR APTT ABG pH ABG pO2 ABG HCO3 ABG O2 Saturation ABG Base Excess ABG Hemoglobin Oxyhemoglobin Sodium Potassium Chloride 96.5 L Carbon Dioxide BUN 21 H Creatinine 0.6 L Glucose 107 H POC Glucose 138 H Lactic Acid Calcium Ionized Calcium Phosphorus Magnesium Total Bilirubin AST ALT Alkaline Phosphatase Ammonia Total Creatine Kinase CK-MB (CK-2) CK-MB (CK-2) Rel Index Total Protein Albumin Urine WBC (Auto) Vancomycin Trough Salicylates Acetaminophen Plasma/Serum Alcohol Crossmatch 12/04/19 12/05/19 12/05/19 18:16 11:55 18:36 WBC RBC Hgb Hct MCH RDW Plt Count Lymph % (Auto) [place] % (Auto) [place] # Seg Neutrophils % Seg Neuts % (Manual) Lymphocytes % (Manual) Seg Neutrophils # Seg Neutrophils # Man Lymphocytes # (Manual) Monocytes # (Manual) Eosinophils # (Manual) Basophils # (Manual) PT INR APTT ABG pH ABG pO2 ABG HCO3 ABG O2 Saturation ABG Base Excess ABG Hemoglobin Oxyhemoglobin Sodium Potassium Chloride Carbon Dioxide BUN Creatinine Glucose POC Glucose 135 H 125 H 135 H Lactic Acid Calcium Ionized Calcium Phosphorus Magnesium Total Bilirubin AST ALT Alkaline Phosphatase Ammonia Total Creatine Kinase CK-MB (CK-2) CK-MB (CK-2) Rel Index Total Protein Albumin Urine WBC (Auto) Vancomycin Trough Salicylates Acetaminophen Plasma/Serum Alcohol Crossmatch 12/05/19 12/06/19 12/06/19 23:30 04:14 05:43 WBC RBC Hgb Hct MCH RDW Plt Count Lymph % (Auto) [place] % (Auto) [place] # Seg Neutrophils % Seg Neuts % (Manual) Lymphocytes % (Manual) Seg Neutrophils # Seg Neutrophils # Man Lymphocytes # (Manual) Monocytes # (Manual) Eosinophils # (Manual) Basophils # (Manual) PT INR APTT ABG pH ABG pO2 ABG HCO3 ABG O2 Saturation ABG Base Excess ABG Hemoglobin Oxyhemoglobin Sodium Potassium 5.6 H Chloride 95.0 L Carbon Dioxide BUN 48 H Creatinine 1.3 H D Glucose POC Glucose 126 H 121 H Lactic Acid Calcium Ionized Calcium Phosphorus Magnesium Total Bilirubin AST 89 H ALT 98 H Alkaline Phosphatase 476 H Ammonia Total Creatine Kinase CK-MB (CK-2) CK-MB (CK-2) Rel Index Total Protein Albumin 2.8 L Urine WBC (Auto) Vancomycin Trough Salicylates Acetaminophen Plasma/Serum Alcohol Crossmatch 12/06/19 12/06/19 12/07/19 10:39 14:34 00:19 WBC 17.3 H RBC 2.60 L Hgb 7.1 L Hct 22.7 L MCH 27 L RDW 20.1 H Plt Count 832 H Lymph % (Auto) [place] % (Auto) [place] # Seg Neutrophils % Seg Neuts % (Manual) Lymphocytes % (Manual) Seg Neutrophils # Seg Neutrophils # Man Lymphocytes # (Manual) Monocytes # (Manual) Eosinophils # (Manual) Basophils # (Manual) PT INR APTT ABG pH ABG pO2 ABG HCO3 ABG O2 Saturation ABG Base Excess ABG Hemoglobin Oxyhemoglobin Sodium Potassium Chloride Carbon Dioxide BUN Creatinine Glucose POC Glucose 128 H 136 H Lactic Acid Calcium Ionized Calcium Phosphorus Magnesium Total Bilirubin AST ALT Alkaline Phosphatase Ammonia Total Creatine Kinase CK-MB (CK-2) CK-MB (CK-2) Rel Index Total Protein Albumin Urine WBC (Auto) Vancomycin Trough Salicylates Acetaminophen Plasma/Serum Alcohol Crossmatch 12/07/19 12/07/19 12/07/19 03:44 03:44 05:53 WBC 16.2 H RBC 2.56 L Hgb 7.1 L Hct 22.3 L MCH RDW 19.4 H Plt Count 782 H Lymph % (Auto) [place] % (Auto) [place] # Seg Neutrophils % Seg Neuts % (Manual) Lymphocytes % (Manual) Seg Neutrophils # Seg Neutrophils # Man Lymphocytes # (Manual) Monocytes # (Manual) Eosinophils # (Manual) Basophils # (Manual) PT INR APTT ABG pH ABG pO2 ABG HCO3 ABG O2 Saturation ABG Base Excess ABG Hemoglobin Oxyhemoglobin Sodium Potassium Chloride 95.6 L Carbon Dioxide BUN 56 H Creatinine 1.4 H Glucose 120 H POC Glucose 128 H Lactic Acid Calcium 10.3 H Ionized Calcium Phosphorus Magnesium Total Bilirubin AST ALT Alkaline Phosphatase Ammonia Total Creatine Kinase CK-MB (CK-2) CK-MB (CK-2) Rel Index Total Protein Albumin Urine WBC (Auto) Vancomycin Trough Salicylates Acetaminophen Plasma/Serum Alcohol Crossmatch 12/07/19 12/07/19 12/08/19 12:54 23:47 00:20 WBC RBC Hgb Hct MCH RDW Plt Count Lymph % (Auto) [place] % (Auto) [place] # Seg Neutrophils % Seg Neuts % (Manual) Lymphocytes % (Manual) Seg Neutrophils # Seg Neutrophils # Man Lymphocytes # (Manual) Monocytes # (Manual) Eosinophils # (Manual) Basophils # (Manual) PT INR APTT ABG pH ABG pO2 ABG HCO3 ABG O2 Saturation ABG Base Excess ABG Hemoglobin Oxyhemoglobin Sodium Potassium Chloride Carbon Dioxide BUN Creatinine Glucose POC Glucose 128 H 130 H 124 H Lactic Acid Calcium Ionized Calcium Phosphorus Magnesium Total Bilirubin AST ALT Alkaline Phosphatase Ammonia Total Creatine Kinase CK-MB (CK-2) CK-MB (CK-2) Rel Index Total Protein Albumin Urine WBC (Auto) Vancomycin Trough Salicylates Acetaminophen Plasma/Serum Alcohol Crossmatch 12/08/19 12/08/19 12/08/19 06:38 12:04 18:26 WBC RBC Hgb Hct MCH RDW Plt Count Lymph % (Auto) [place] % (Auto) [place] # Seg Neutrophils % Seg Neuts % (Manual) Lymphocytes % (Manual) Seg Neutrophils # Seg Neutrophils # Man Lymphocytes # (Manual) Monocytes # (Manual) Eosinophils # (Manual) Basophils # (Manual) PT INR APTT ABG pH ABG pO2 ABG HCO3 ABG O2 Saturation ABG Base Excess ABG Hemoglobin Oxyhemoglobin Sodium Potassium Chloride Carbon Dioxide BUN Creatinine Glucose POC Glucose 137 H 129 H 150 H Lactic Acid Calcium Ionized Calcium Phosphorus Magnesium Total Bilirubin AST ALT Alkaline Phosphatase Ammonia Total Creatine Kinase CK-MB (CK-2) CK-MB (CK-2) Rel Index Total Protein Albumin Urine WBC (Auto) Vancomycin Trough Salicylates Acetaminophen Plasma/Serum Alcohol Crossmatch 12/09/19 12/09/19 12/09/19 00:56 05:34 06:13 WBC RBC Hgb Hct MCH RDW Plt Count Lymph % (Auto) [place] % (Auto) [place] # Seg Neutrophils % Seg Neuts % (Manual) Lymphocytes % (Manual) Seg Neutrophils # Seg Neutrophils # Man Lymphocytes # (Manual) Monocytes # (Manual) Eosinophils # (Manual) Basophils # (Manual) PT INR APTT ABG pH ABG pO2 ABG HCO3 ABG O2 Saturation ABG Base Excess ABG Hemoglobin Oxyhemoglobin Sodium 146 H Potassium Chloride Carbon Dioxide BUN 66 H Creatinine 1.9 H Glucose 116 H POC Glucose 130 H 130 H Lactic Acid Calcium Ionized Calcium Phosphorus Magnesium Total Bilirubin AST ALT Alkaline Phosphatase Ammonia Total Creatine Kinase CK-MB (CK-2) CK-MB (CK-2) Rel Index Total Protein Albumin Urine WBC (Auto) Vancomycin Trough Salicylates Acetaminophen Plasma/Serum Alcohol Crossmatch 12/09/19 12/09/19 12/10/19 11:52 17:50 00:14 WBC RBC Hgb Hct MCH RDW Plt Count Lymph % (Auto) [place] % (Auto) [place] # Seg Neutrophils % Seg Neuts % (Manual) Lymphocytes % (Manual) Seg Neutrophils # Seg Neutrophils # Man Lymphocytes # (Manual) Monocytes # (Manual) Eosinophils # (Manual) Basophils # (Manual) PT INR APTT ABG pH ABG pO2 ABG HCO3 ABG O2 Saturation ABG Base Excess ABG Hemoglobin Oxyhemoglobin Sodium Potassium Chloride Carbon Dioxide BUN Creatinine Glucose POC Glucose 135 H 120 H 116 H Lactic Acid Calcium Ionized Calcium Phosphorus Magnesium Total Bilirubin AST ALT Alkaline Phosphatase Ammonia Total Creatine Kinase CK-MB (CK-2) CK-MB (CK-2) Rel Index Total Protein Albumin Urine WBC (Auto) Vancomycin Trough Salicylates Acetaminophen Plasma/Serum Alcohol Crossmatch 12/10/19 12/10/19 12/10/19 05:38 11:38 17:34 WBC RBC Hgb Hct MCH RDW Plt Count Lymph % (Auto) [place] % (Auto) [place] # Seg Neutrophils % Seg Neuts % (Manual) Lymphocytes % (Manual) Seg Neutrophils # Seg Neutrophils # Man Lymphocytes # (Manual) Monocytes # (Manual) Eosinophils # (Manual) Basophils # (Manual) PT INR APTT ABG pH ABG pO2 ABG HCO3 ABG O2 Saturation ABG Base Excess ABG Hemoglobin Oxyhemoglobin Sodium Potassium Chloride Carbon Dioxide BUN Creatinine Glucose POC Glucose 115 H 112 H 130 H Lactic Acid Calcium Ionized Calcium Phosphorus Magnesium Total Bilirubin AST ALT Alkaline Phosphatase Ammonia Total Creatine Kinase CK-MB (CK-2) CK-MB (CK-2) Rel Index Total Protein Albumin Urine WBC (Auto) Vancomycin Trough Salicylates Acetaminophen Plasma/Serum Alcohol Crossmatch 12/11/19 12/11/19 12/11/19 00:20 05:31 12:22 WBC RBC Hgb Hct MCH RDW Plt Count Lymph % (Auto) [place] % (Auto) [place] # Seg Neutrophils % Seg Neuts % (Manual) Lymphocytes % (Manual) Seg Neutrophils # Seg Neutrophils # Man Lymphocytes # (Manual) Monocytes # (Manual) Eosinophils # (Manual) Basophils # (Manual) PT INR APTT ABG pH ABG pO2 ABG HCO3 ABG O2 Saturation ABG Base Excess ABG Hemoglobin Oxyhemoglobin Sodium Potassium Chloride Carbon Dioxide BUN Creatinine Glucose POC Glucose 124 H 132 H 128 H Lactic Acid Calcium Ionized Calcium Phosphorus Magnesium Total Bilirubin AST ALT Alkaline Phosphatase Ammonia Total Creatine Kinase CK-MB (CK-2) CK-MB (CK-2) Rel Index Total Protein Albumin Urine WBC (Auto) Vancomycin Trough Salicylates Acetaminophen Plasma/Serum Alcohol Crossmatch 12/11/19 12/11/19 12/12/19 18:04 23:42 03:51 WBC RBC Hgb Hct MCH RDW Plt Count Lymph % (Auto) [place] % (Auto) [place] # Seg Neutrophils % Seg Neuts % (Manual) Lymphocytes % (Manual) Seg Neutrophils # Seg Neutrophils # Man Lymphocytes # (Manual) Monocytes # (Manual) Eosinophils # (Manual) Basophils # (Manual) PT INR APTT ABG pH ABG pO2 ABG HCO3 ABG O2 Saturation ABG Base Excess ABG Hemoglobin Oxyhemoglobin Sodium 149 H Potassium Chloride Carbon Dioxide 20 L D BUN 77 H Creatinine 2.8 H Glucose POC Glucose 133 H 154 H Lactic Acid Calcium Ionized Calcium Phosphorus Magnesium Total Bilirubin AST ALT Alkaline Phosphatase Ammonia Total Creatine Kinase CK-MB (CK-2) CK-MB (CK-2) Rel Index Total Protein Albumin Urine WBC (Auto) Vancomycin Trough Salicylates Acetaminophen Plasma/Serum Alcohol Crossmatch 12/12/19 12/12/19 12/12/19 05:18 05:26 10:30 WBC 18.0 H RBC 2.51 L Hgb 6.8 L Hct 22.0 L MCH 27 L RDW 19.9 H Plt Count 582 H Lymph % (Auto) [place] % (Auto) [place] # Seg Neutrophils % Seg Neuts % (Manual) Lymphocytes % (Manual) Seg Neutrophils # Seg Neutrophils # Man Lymphocytes # (Manual) Monocytes # (Manual) Eosinophils # (Manual) Basophils # (Manual) PT INR APTT ABG pH ABG pO2 ABG HCO3 ABG O2 Saturation ABG Base Excess ABG Hemoglobin Oxyhemoglobin Sodium Potassium Chloride Carbon Dioxide BUN Creatinine Glucose POC Glucose 135 H Lactic Acid Calcium Ionized Calcium Phosphorus Magnesium Total Bilirubin AST ALT Alkaline Phosphatase Ammonia Total Creatine Kinase CK-MB (CK-2) CK-MB (CK-2) Rel Index Total Protein Albumin Urine WBC (Auto) Vancomycin Trough Salicylates Acetaminophen Plasma/Serum Alcohol Crossmatch See Detail 12/12/19 12/12/19 12/12/19 11:44 18:10 23:21 WBC RBC Hgb Hct MCH RDW Plt Count Lymph % (Auto) [place] % (Auto) [place] # Seg Neutrophils % Seg Neuts % (Manual) Lymphocytes % (Manual) Seg Neutrophils # Seg Neutrophils # Man Lymphocytes # (Manual) Monocytes # (Manual) Eosinophils # (Manual) Basophils # (Manual) PT INR APTT ABG pH ABG pO2 ABG HCO3 ABG O2 Saturation ABG Base Excess ABG Hemoglobin Oxyhemoglobin Sodium Potassium Chloride Carbon Dioxide BUN Creatinine Glucose POC Glucose 108 H 107 H 126 H Lactic Acid Calcium Ionized Calcium Phosphorus Magnesium Total Bilirubin AST ALT Alkaline Phosphatase Ammonia Total Creatine Kinase CK-MB (CK-2) CK-MB (CK-2) Rel Index Total Protein Albumin Urine WBC (Auto) Vancomycin Trough Salicylates Acetaminophen Plasma/Serum Alcohol Crossmatch 12/13/19 12/13/19 12/13/19 05:41 07:48 07:48 WBC 38.3 H RBC 2.37 L Hgb 6.3 L Hct 20.9 L MCH 27 L RDW 20.2 H Plt Count 546 H Lymph % (Auto) [place] % (Auto) [place] # Seg Neutrophils % Seg Neuts % (Manual) 93.0 H Lymphocytes % (Manual) 1.0 L Seg Neutrophils # Seg Neutrophils # Man 35.6 H Lymphocytes # (Manual) 0.4 L Monocytes # (Manual) Eosinophils # (Manual) Basophils # (Manual) 0.4 H PT INR APTT ABG pH ABG pO2 ABG HCO3 ABG O2 Saturation ABG Base Excess ABG Hemoglobin Oxyhemoglobin Sodium 152 H Potassium 3.1 L D Chloride 111.9 H Carbon Dioxide 21 L BUN 53 H Creatinine 1.9 H Glucose 141 H POC Glucose 128 H Lactic Acid Calcium Ionized Calcium Phosphorus Magnesium Total Bilirubin AST ALT Alkaline Phosphatase 316 H Ammonia Total Creatine Kinase CK-MB (CK-2) CK-MB (CK-2) Rel Index Total Protein Albumin 2.4 L Urine WBC (Auto) Vancomycin Trough Salicylates Acetaminophen Plasma/Serum Alcohol Crossmatch 12/13/19 12/13/19 12/14/19 18:17 23:19 05:36 WBC RBC Hgb Hct MCH RDW Plt Count Lymph % (Auto) [place] % (Auto) [place] # Seg Neutrophils % Seg Neuts % (Manual) Lymphocytes % (Manual) Seg Neutrophils # Seg Neutrophils # Man Lymphocytes # (Manual) Monocytes # (Manual) Eosinophils # (Manual) Basophils # (Manual) PT INR APTT ABG pH ABG pO2 ABG HCO3 ABG O2 Saturation ABG Base Excess ABG Hemoglobin Oxyhemoglobin Sodium Potassium Chloride Carbon Dioxide BUN Creatinine Glucose POC Glucose 141 H 158 H 182 H Lactic Acid Calcium Ionized Calcium Phosphorus Magnesium Total Bilirubin AST ALT Alkaline Phosphatase Ammonia Total Creatine Kinase CK-MB (CK-2) CK-MB (CK-2) Rel Index Total Protein Albumin Urine WBC (Auto) Vancomycin Trough Salicylates Acetaminophen Plasma/Serum Alcohol Crossmatch 12/14/19 12/14/19 12/14/19 08:48 08:48 10:31 WBC 33.3 H RBC 2.70 L Hgb 7.9 L 8.0 L Hct 25.3 L 24.0 L MCH RDW 19.2 H Plt Count 476 H Lymph % (Auto) [place] % (Auto) [place] # Seg Neutrophils % Seg Neuts % (Manual) Lymphocytes % (Manual) Seg Neutrophils # Seg Neutrophils # Man Lymphocytes # (Manual) Monocytes # (Manual) Eosinophils # (Manual) Basophils # (Manual) PT INR APTT ABG pH ABG pO2 ABG HCO3 ABG O2 Saturation ABG Base Excess ABG Hemoglobin Oxyhemoglobin Sodium 153 H Potassium 2.5 L* Chloride 114.9 H Carbon Dioxide 20 L BUN 38 H Creatinine 1.4 H Glucose 177 H POC Glucose Lactic Acid Calcium Ionized Calcium Phosphorus Magnesium Total Bilirubin AST ALT Alkaline Phosphatase Ammonia Total Creatine Kinase CK-MB (CK-2) CK-MB (CK-2) Rel Index Total Protein Albumin Urine WBC (Auto) Vancomycin Trough Salicylates Acetaminophen Plasma/Serum Alcohol Crossmatch 12/14/19 12/14/19 12/14/19 12:57 16:15 17:50 WBC RBC Hgb Hct MCH RDW Plt Count Lymph % (Auto) [place] % (Auto) [place] # Seg Neutrophils % Seg Neuts % (Manual) Lymphocytes % (Manual) Seg Neutrophils # Seg Neutrophils # Man Lymphocytes # (Manual) Monocytes # (Manual) Eosinophils # (Manual) Basophils # (Manual) PT INR APTT ABG pH ABG pO2 73.6 L ABG HCO3 ABG O2 Saturation ABG Base Excess ABG Hemoglobin 7.6 L Oxyhemoglobin 94.0 L Sodium Potassium Chloride Carbon Dioxide BUN Creatinine Glucose POC Glucose 174 H 150 H Lactic Acid Calcium Ionized Calcium Phosphorus Magnesium Total Bilirubin AST ALT Alkaline Phosphatase Ammonia Total Creatine Kinase CK-MB (CK-2) CK-MB (CK-2) Rel Index Total Protein Albumin Urine WBC (Auto) Vancomycin Trough Salicylates Acetaminophen Plasma/Serum Alcohol Crossmatch 12/15/19 12/15/19 12/15/19 00:28 05:27 07:23 WBC 30.0 H RBC 3.11 L Hgb 8.6 L Hct 27.7 L MCH RDW 20.0 H Plt Count 473 H Lymph % (Auto) [place] % (Auto) [place] # Seg Neutrophils % Seg Neuts % (Manual) Lymphocytes % (Manual) Seg Neutrophils # Seg Neutrophils # Man Lymphocytes # (Manual) Monocytes # (Manual) Eosinophils # (Manual) Basophils # (Manual) PT INR APTT ABG pH ABG pO2 ABG HCO3 ABG O2 Saturation ABG Base Excess ABG Hemoglobin Oxyhemoglobin Sodium Potassium Chloride Carbon Dioxide BUN Creatinine Glucose POC Glucose 167 H 148 H Lactic Acid Calcium Ionized Calcium Phosphorus Magnesium Total Bilirubin AST ALT Alkaline Phosphatase Ammonia Total Creatine Kinase CK-MB (CK-2) CK-MB (CK-2) Rel Index Total Protein Albumin Urine WBC (Auto) Vancomycin Trough Salicylates Acetaminophen Plasma/Serum Alcohol Crossmatch 12/15/19 12/15/19 12/15/19 07:23 12:21 17:41 WBC RBC Hgb Hct MCH RDW Plt Count Lymph % (Auto) [place] % (Auto) [place] # Seg Neutrophils % Seg Neuts % (Manual) Lymphocytes % (Manual) Seg Neutrophils # Seg Neutrophils # Man Lymphocytes # (Manual) Monocytes # (Manual) Eosinophils # (Manual) Basophils # (Manual) PT INR APTT ABG pH ABG pO2 ABG HCO3 ABG O2 Saturation ABG Base Excess ABG Hemoglobin Oxyhemoglobin Sodium 147 H Potassium 3.5 L D Chloride 111.2 H Carbon Dioxide 19 L BUN 29 H Creatinine Glucose 126 H POC Glucose 154 H 144 H Lactic Acid Calcium Ionized Calcium Phosphorus Magnesium Total Bilirubin AST ALT Alkaline Phosphatase Ammonia Total Creatine Kinase CK-MB (CK-2) CK-MB (CK-2) Rel Index Total Protein Albumin Urine WBC (Auto) Vancomycin Trough Salicylates Acetaminophen Plasma/Serum Alcohol Crossmatch 12/16/19 12/16/19 12/16/19 00:22 05:30 05:44 WBC 30.8 H RBC 2.58 L Hgb 7.1 L Hct 22.7 L MCH RDW 19.6 H Plt Count 451 H Lymph % (Auto) [place] % (Auto) [place] # Seg Neutrophils % Seg Neuts % (Manual) Lymphocytes % (Manual) Seg Neutrophils # Seg Neutrophils # Man Lymphocytes # (Manual) Monocytes # (Manual) Eosinophils # (Manual) Basophils # (Manual) PT INR APTT ABG pH ABG pO2 ABG HCO3 ABG O2 Saturation ABG Base Excess ABG Hemoglobin Oxyhemoglobin Sodium Potassium Chloride Carbon Dioxide BUN Creatinine Glucose POC Glucose 139 H 126 H Lactic Acid Calcium Ionized Calcium Phosphorus Magnesium Total Bilirubin AST ALT Alkaline Phosphatase Ammonia Total Creatine Kinase CK-MB (CK-2) CK-MB (CK-2) Rel Index Total Protein Albumin Urine WBC (Auto) Vancomycin Trough Salicylates Acetaminophen Plasma/Serum Alcohol Crossmatch 12/16/19 12/16/19 12/16/19 05:44 11:48 17:37 WBC RBC Hgb Hct MCH RDW Plt Count Lymph % (Auto) [place] % (Auto) [place] # Seg Neutrophils % Seg Neuts % (Manual) Lymphocytes % (Manual) Seg Neutrophils # Seg Neutrophils # Man Lymphocytes # (Manual) Monocytes # (Manual) Eosinophils # (Manual) Basophils # (Manual) PT INR APTT ABG pH ABG pO2 ABG HCO3 ABG O2 Saturation ABG Base Excess ABG Hemoglobin Oxyhemoglobin Sodium Potassium 3.4 L Chloride 109.2 H Carbon Dioxide 19 L BUN 27 H Creatinine Glucose 124 H POC Glucose 125 H 148 H Lactic Acid Calcium Ionized Calcium Phosphorus Magnesium Total Bilirubin AST ALT Alkaline Phosphatase Ammonia Total Creatine Kinase CK-MB (CK-2) CK-MB (CK-2) Rel Index Total Protein Albumin Urine WBC (Auto) Vancomycin Trough Salicylates Acetaminophen Plasma/Serum Alcohol Crossmatch 12/16/19 12/17/19 12/17/19 23:43 05:28 12:47 WBC RBC Hgb Hct MCH RDW Plt Count Lymph % (Auto) [place] % (Auto) [place] # Seg Neutrophils % Seg Neuts % (Manual) Lymphocytes % (Manual) Seg Neutrophils # Seg Neutrophils # Man Lymphocytes # (Manual) Monocytes # (Manual) Eosinophils # (Manual) Basophils # (Manual) PT INR APTT ABG pH ABG pO2 ABG HCO3 ABG O2 Saturation ABG Base Excess ABG Hemoglobin Oxyhemoglobin Sodium Potassium Chloride Carbon Dioxide BUN Creatinine Glucose POC Glucose 142 H 140 H 125 H Lactic Acid Calcium Ionized Calcium Phosphorus Magnesium Total Bilirubin AST ALT Alkaline Phosphatase Ammonia Total Creatine Kinase CK-MB (CK-2) CK-MB (CK-2) Rel Index Total Protein Albumin Urine WBC (Auto) Vancomycin Trough Salicylates Acetaminophen Plasma/Serum Alcohol Crossmatch 12/17/19 12/17/19 12/17/19 17:05 18:00 Unknown WBC RBC Hgb Hct MCH RDW Plt Count Lymph % (Auto) [place] % (Auto) [place] # Seg Neutrophils % Seg Neuts % (Manual) Lymphocytes % (Manual) Seg Neutrophils # Seg Neutrophils # Man Lymphocytes # (Manual) Monocytes # (Manual) Eosinophils # (Manual) Basophils # (Manual) PT INR APTT ABG pH ABG pO2 68.1 L ABG HCO3 ABG O2 Saturation 93.7 L ABG Base Excess ABG Hemoglobin 5.0 L Oxyhemoglobin 91.7 L Sodium Potassium Chloride Carbon Dioxide BUN Creatinine Glucose POC Glucose 140 H Lactic Acid Calcium Ionized Calcium Phosphorus Magnesium Total Bilirubin AST ALT Alkaline Phosphatase Ammonia Total Creatine Kinase CK-MB (CK-2) CK-MB (CK-2) Rel Index Total Protein Albumin Urine WBC (Auto) Vancomycin Trough Salicylates Acetaminophen Plasma/Serum Alcohol Crossmatch 12/18/19 12/18/19 12/18/19 00:16 04:53 04:53 WBC 28.6 H RBC 2.27 L Hgb 6.3 L Hct 19.5 L* MCH RDW 20.0 H Plt Count 497 H Lymph % (Auto) [place] % (Auto) [place] # Seg Neutrophils % Seg Neuts % (Manual) Lymphocytes % (Manual) Seg Neutrophils # Seg Neutrophils # Man Lymphocytes # (Manual) Monocytes # (Manual) Eosinophils # (Manual) Basophils # (Manual) PT INR APTT ABG pH ABG pO2 ABG HCO3 ABG O2 Saturation ABG Base Excess ABG Hemoglobin Oxyhemoglobin Sodium Potassium Chloride 107.9 H Carbon Dioxide 20 L BUN 27 H Creatinine 0.6 L Glucose 116 H POC Glucose 123 H Lactic Acid Calcium Ionized Calcium Phosphorus Magnesium Total Bilirubin AST ALT Alkaline Phosphatase Ammonia Total Creatine Kinase CK-MB (CK-2) CK-MB (CK-2) Rel Index Total Protein Albumin Urine WBC (Auto) Vancomycin Trough Salicylates Acetaminophen Plasma/Serum Alcohol Crossmatch 12/18/19 12/18/19 12/18/19 06:38 11:22 12:08 WBC RBC Hgb Hct MCH RDW Plt Count Lymph % (Auto) [place] % (Auto) [place] # Seg Neutrophils % Seg Neuts % (Manual) Lymphocytes % (Manual) Seg Neutrophils # Seg Neutrophils # Man Lymphocytes # (Manual) Monocytes # (Manual) Eosinophils # (Manual) Basophils # (Manual) PT INR APTT ABG pH ABG pO2 ABG HCO3 ABG O2 Saturation ABG Base Excess ABG Hemoglobin Oxyhemoglobin Sodium Potassium Chloride Carbon Dioxide BUN Creatinine Glucose POC Glucose 120 H 127 H Lactic Acid Calcium Ionized Calcium Phosphorus Magnesium Total Bilirubin AST ALT Alkaline Phosphatase Ammonia Total Creatine Kinase CK-MB (CK-2) CK-MB (CK-2) Rel Index Total Protein Albumin Urine WBC (Auto) Vancomycin Trough Salicylates Acetaminophen Plasma/Serum Alcohol Crossmatch See Detail 12/18/19 12/18/19 12/18/19 14:05 17:49 23:53 WBC RBC Hgb Hct MCH RDW Plt Count Lymph % (Auto) [place] % (Auto) [place] # Seg Neutrophils % Seg Neuts % (Manual) Lymphocytes % (Manual) Seg Neutrophils # Seg Neutrophils # Man Lymphocytes # (Manual) Monocytes # (Manual) Eosinophils # (Manual) Basophils # (Manual) PT INR APTT ABG pH 7.267 L ABG pO2 69.8 L ABG HCO3 ABG O2 Saturation 88.4 L ABG Base Excess ABG Hemoglobin 7.1 L Oxyhemoglobin 86.4 L Sodium Potassium Chloride Carbon Dioxide BUN Creatinine Glucose POC Glucose 157 H 128 H Lactic Acid Calcium Ionized Calcium Phosphorus Magnesium Total Bilirubin AST ALT Alkaline Phosphatase Ammonia Total Creatine Kinase CK-MB (CK-2) CK-MB (CK-2) Rel Index Total Protein Albumin Urine WBC (Auto) Vancomycin Trough Salicylates Acetaminophen Plasma/Serum Alcohol Crossmatch 12/19/19 12/19/19 12/19/19 03:37 03:37 05:25 WBC 31.3 H RBC 2.60 L Hgb 7.6 L Hct 23.0 L MCH RDW 19.4 H Plt Count 530 H Lymph % (Auto) [place] % (Auto) [place] # Seg Neutrophils % Seg Neuts % (Manual) Lymphocytes % (Manual) Seg Neutrophils # Seg Neutrophils # Man Lymphocytes # (Manual) Monocytes # (Manual) Eosinophils # (Manual) Basophils # (Manual) PT INR APTT ABG pH ABG pO2 ABG HCO3 ABG O2 Saturation ABG Base Excess ABG Hemoglobin Oxyhemoglobin Sodium Potassium Chloride Carbon Dioxide 18 L BUN 36 H Creatinine Glucose 111 H POC Glucose 123 H Lactic Acid Calcium Ionized Calcium Phosphorus Magnesium Total Bilirubin AST ALT Alkaline Phosphatase Ammonia Total Creatine Kinase CK-MB (CK-2) CK-MB (CK-2) Rel Index Total Protein Albumin Urine WBC (Auto) Vancomycin Trough Salicylates Acetaminophen Plasma/Serum Alcohol Crossmatch 12/19/19 12/19/19 12/20/19 12:59 18:33 00:00 WBC RBC Hgb Hct MCH RDW Plt Count Lymph % (Auto) [place] % (Auto) [place] # Seg Neutrophils % Seg Neuts % (Manual) Lymphocytes % (Manual) Seg Neutrophils # Seg Neutrophils # Man Lymphocytes # (Manual) Monocytes # (Manual) Eosinophils # (Manual) Basophils # (Manual) PT INR APTT ABG pH ABG pO2 ABG HCO3 ABG O2 Saturation ABG Base Excess ABG Hemoglobin Oxyhemoglobin Sodium Potassium Chloride Carbon Dioxide BUN Creatinine Glucose POC Glucose 130 H 118 H 135 H Lactic Acid Calcium Ionized Calcium Phosphorus Magnesium Total Bilirubin AST ALT Alkaline Phosphatase Ammonia Total Creatine Kinase CK-MB (CK-2) CK-MB (CK-2) Rel Index Total Protein Albumin Urine WBC (Auto) Vancomycin Trough Salicylates Acetaminophen Plasma/Serum Alcohol Crossmatch 12/20/19 12/20/19 12/20/19 05:46 12:31 18:07 WBC RBC Hgb Hct MCH RDW Plt Count Lymph % (Auto) [place] % (Auto) [place] # Seg Neutrophils % Seg Neuts % (Manual) Lymphocytes % (Manual) Seg Neutrophils # Seg Neutrophils # Man Lymphocytes # (Manual) Monocytes # (Manual) Eosinophils # (Manual) Basophils # (Manual) PT INR APTT ABG pH ABG pO2 ABG HCO3 ABG O2 Saturation ABG Base Excess ABG Hemoglobin Oxyhemoglobin Sodium Potassium Chloride Carbon Dioxide BUN Creatinine Glucose POC Glucose 131 H 128 H 134 H Lactic Acid Calcium Ionized Calcium Phosphorus Magnesium Total Bilirubin AST ALT Alkaline Phosphatase Ammonia Total Creatine Kinase CK-MB (CK-2) CK-MB (CK-2) Rel Index Total Protein Albumin Urine WBC (Auto) Vancomycin Trough Salicylates Acetaminophen Plasma/Serum Alcohol Crossmatch 12/21/19 12/21/19 12/21/19 03:28 03:28 07:21 WBC 29.4 H RBC 2.30 L Hgb 6.8 L Hct 20.2 L MCH RDW 20.2 H Plt Count 746 H Lymph % (Auto) [place] % (Auto) [place] # Seg Neutrophils % Seg Neuts % (Manual) 85.0 H Lymphocytes % (Manual) 8.0 L Seg Neutrophils # Seg Neutrophils # Man 25.0 H Lymphocytes # (Manual) Monocytes # (Manual) 1.5 H Eosinophils # (Manual) 0.6 H Basophils # (Manual) PT INR APTT ABG pH ABG pO2 ABG HCO3 ABG O2 Saturation ABG Base Excess ABG Hemoglobin Oxyhemoglobin Sodium Potassium Chloride Carbon Dioxide 17 L BUN 57 H Creatinine 1.4 H D Glucose POC Glucose 124 H Lactic Acid Calcium Ionized Calcium Phosphorus Magnesium Total Bilirubin AST ALT Alkaline Phosphatase Ammonia Total Creatine Kinase CK-MB (CK-2) CK-MB (CK-2) Rel Index Total Protein Albumin Urine WBC (Auto) Vancomycin Trough Salicylates Acetaminophen Plasma/Serum Alcohol Crossmatch 12/21/19 08:56 WBC RBC Hgb Hct MCH RDW Plt Count Lymph % (Auto) [place] % (Auto) [place] # Seg Neutrophils % Seg Neuts % (Manual) Lymphocytes % (Manual) Seg Neutrophils # Seg Neutrophils # Man Lymphocytes # (Manual) Monocytes # (Manual) Eosinophils # (Manual) Basophils # (Manual) PT INR APTT ABG pH ABG pO2 ABG HCO3 ABG O2 Saturation ABG Base Excess ABG Hemoglobin Oxyhemoglobin Sodium Potassium Chloride Carbon Dioxide BUN Creatinine Glucose POC Glucose Lactic Acid Calcium Ionized Calcium Phosphorus Magnesium Total Bilirubin AST ALT Alkaline Phosphatase Ammonia Total Creatine Kinase CK-MB (CK-2) CK-MB (CK-2) Rel Index Total Protein Albumin Urine WBC (Auto) Vancomycin Trough 33.8 H Salicylates Acetaminophen Plasma/Serum Alcohol Crossmatch Allied health notes reviewed: RT
[2019-12-21] MEDS: LANSOPRAZOLE 30 MG SOLUTAB FEEDTUBE SCH (10:40)
[2019-12-21] MEDS: levETIRAcetam 500 MG/5 ML ORAL LIQD PO SCH ×2 (10:40→22:20)
[2019-12-21] MEDS: SERTRALINE 25 MG TAB PO SCH (10:40)
[2019-12-21] MEDS: hydrOXYzine PAMOATE 25 MG CAP PO SCH ×2 (10:40→22:23)
[2019-12-21] MEDS: TAMSULOSIN 0.4 MG CAP PO SCH (10:40)
[2019-12-21] MEDS: SENNOSIDES/DOCUSATE SODIUM 8.6/50 MG TAB PO SCH ×2 (10:40→22:23)
--- NOTE | 2019-12-21 12:58 | Progress Note ---
Assessment and Plan /Anemia, microcytic -Continue to hold heparin, transfused 2 units of packed RBC -ordered stool for occult blood /Acute metabolic encephalopathy/toxic encephalopathy due to the above - cont supportive care / Anoxic brain injury: suspected CT head: No acute abnormality. neurology consult placed, EEG ordered showed Generalized slowing. No seizures or epileptiform activity. Per neurology : Patient found to have intact corneal/VOR/cough reflexes, and is withdrawing and lower extremities, therefore patient is not found to be brain . However, given that patient had an out of hospital cardiac arrest, the time of which is uncertain, the likelihood of meaningful neurological recovery is somewhat low. /Acute Respiratory failure -s/p intubation, s/p trach and PEG on 12/12 with mechanical ventilation - CTA was done and negative for PE, - Echo quality is poor, showed diastolic dysfunction - continue ICU monitoring - wean OFF vent/O2 as tolerated /Hyperammonemia - likely from liver disease related to EtOH abuse - Patient had elevated ammonia level and treated with lactulose /Metabolic Acidosis -Alcohol ketoacidosis vs hypoprofusion -Continue to monitor /ELevated LFTs, stable now - due to ischemic hepatitis. /Leucocytosis with sepsis - Source MRSA bacteremia and MSSA pneumonia. UA showed pyuria. RUQ US showed no ascites. Completed 7 days of Ceftriaxone on 11/29/2019. - Repeat TTE negative for vegetation. cont abx /MSSA pneumonia: on vancomycin /ALcohol USe Disorder - given ongoing Alcohol use almost daily, s/p IV Thiamine - monitor /Severe hypokalemia -Repleted /Seizure disorder: treat with Keppra /H. Influenzae, tracheobronchitis, treated with abx FUll code, family denies DNR Very poor prognosis The high probability of a clinically significant, sudden or life threatening deterioration of the [neurology,respiratory] system(s) required my full and direct attention, intervention and personal management. The aggregate critical care time was [32] minutes. This time is in addition to time spent performing reported procedures but includes the following: [x] Data Review and interpretation [x] Patient assessment and monitoring of vital signs [x] Documentation [x] Medication orders and management Disposition: prognosis poor. 12/17/19: Day 24 on MV, PEEP 6 FiO2 30%, trying to wean, held sq heparin due to drop in h/h and anemia, renewed restraints, fever appears to be due to worsening pneumonia, UA negative, pCXR Impression: Slight interval worsening of a con solidative opacity in the left mid to lower lung, worrisome for pneumonia in the appropriate clinical setting. Adjust Vancomycin dose continue cefepime with ID following. Swollen right arm with Venous doppler of right arm r/o DVT ordered but not done due to COVID-19, 12/18/19: hb 6.3, transfuse one unit PRBC 12/19/19 : H&H stable, continue to monitor clinical status at ICU 12/19: Continue to monitor at ICU, needs placement 12/20: Continue to monitor at ICU, wean off vent as tolerated, needs placement. called family- no one answered -left message Brief History: 54-year-old female with a past medical history of Hypertension, Depression, Tobacco use Disorder, Alcohol use Disorder as confirmed by Daughter and pt's mother presents to the hospital status post cardiac arrest at home. EMS found pt [place]. They were unable to intubate patient with a ET tube because she was clenching down therefore Joe airway placed. Per the ED physician who evaluated pt, Patient presented with a pulse, intermittent respirations, and bagging support via Joe airway with O2 sat of 100%. Accu-Chek of 71 obtained by EMS. She was intubated in the ER and called for admission. Following admission patient was diagnosed with anoxic brain injury, sepsis with MRSA bacteremia and MSSA pneumonia, alcoholic liver disease. Family member wished for full code, patient currently getting treated with IV antibiotics for sepsis, status post trach and PEG on 12/13/19. Subjective Date of service: 12/21/19 Principal diagnosis: Ac cardiopulmonary arrest; Ac hypoxemic resp failure; Acute encephalopathy Interval history: Patient seen and examined remained on mechanical ventilation with trach, unresponsive, no clinical change family wants to continue full code Discussed with RN at bedside, discussed with major case detective for disposition planning Tolerating tube feeding with PEG tube, needs placement - uninsured Objective - Exam Narrative Exam: General appearance: Present: other (on vent comatose, elderly female) - EENT Eyes: no scleral icterus, no conjunctival injection, pupil not reactive ENT: clear oral mucosa, dentition normal, no oropharyngeal erythema Ears: bilateral: normal - Neck Neck: trach on place - Respiratory Respiratory effort: other (on vent) Respiratory: bilateral: rales - Cardiovascular Rhythm: regular Heart Sounds: Present: S1 & S2. Absent: gallop, rub Extremities: pulses intact, No edema, normal color - Gastrointestinal General gastrointestinal: Present: soft, non-tender, non-distended, normal bowel sounds - Integumentary Integumentary: clear, warm, dry - Musculoskeletal Musculoskeletal: does not respond to commend - Neurologic Neurologic: other (intubated with trach and 2+ reflexes throughout) - Psychiatric Psychiatric: no appropriate mood/affect, no intact judgment & insight, no memory intact - Constitutional Vitals: Vital Signs - 12hr 12/21/19 12/21/19 12/21/19 01:00 01:15 01:30 Temperature Pulse Rate 100 H 101 H 102 H Pulse Rate [ From Monitor] Respiratory 28 H 28 H 28 H Rate Blood Pressure 113/77 118/82 117/80 O2 Sat by Pulse 98 99 99 Oximetry O2 Sat by Pulse Oximetry [ Assessment] 12/21/19 12/21/19 12/21/19 01:45 02:00 02:15 Temperature Pulse Rate 102 H 102 H 104 H Pulse Rate [ From Monitor] Respiratory 28 H 28 H 28 H Rate Blood Pressure 120/81 117/81 113/78 O2 Sat by Pulse 99 99 99 Oximetry O2 Sat by Pulse Oximetry [ Assessment] 12/21/19 12/21/19 12/21/19 02:30 02:45 03:00 Temperature Pulse Rate 106 H 110 H 109 H Pulse Rate [ From Monitor] Respiratory 26 H 28 H 29 H Rate Blood Pressure 100/46 129/77 129/77 O2 Sat by Pulse 100 99 99 Oximetry O2 Sat by Pulse Oximetry [ Assessment] 12/21/19 12/21/19 12/21/19 03:15 03:28 03:30 Temperature 97.2 F L Pulse Rate 108 H 108 H Pulse Rate [ From Monitor] Respiratory 27 H 28 H Rate Blood Pressure 120/80 119/79 O2 Sat by Pulse 97 97 Oximetry O2 Sat by Pulse Oximetry [ Assessment] 12/21/19 12/21/19 12/21/19 03:45 04:00 04:15 Temperature Pulse Rate 106 H 105 H 107 H Pulse Rate [ 104 H From Monitor] Respiratory 28 H 28 H 28 H Rate Blood Pressure 125/80 128/85 131/87 O2 Sat by Pulse 96 96 96 Oximetry O2 Sat by Pulse Oximetry [ Assessment] 12/21/19 12/21/19 12/21/19 04:30 04:45 05:00 Temperature Pulse Rate 108 H 111 H 112 H Pulse Rate [ From Monitor] Respiratory 28 H 21 26 H Rate Blood Pressure 133/88 134/89 133/90 O2 Sat by Pulse 97 98 97 Oximetry O2 Sat by Pulse Oximetry [ Assessment] 12/21/19 12/21/19 12/21/19 05:15 05:30 05:45 Temperature Pulse Rate 109 H 110 H 110 H Pulse Rate [ From Monitor] Respiratory 28 H 28 H 29 H Rate Blood Pressure 135/93 140/95 136/89 O2 Sat by Pulse 99 100 99 Oximetry O2 Sat by Pulse Oximetry [ Assessment] 12/21/19 12/21/19 12/21/19 06:00 06:15 06:30 Temperature Pulse Rate 110 H 110 H 109 H Pulse Rate [ From Monitor] Respiratory 28 H 28 H 27 H Rate Blood Pressure 126/84 139/90 132/89 O2 Sat by Pulse 99 99 99 Oximetry O2 Sat by Pulse Oximetry [ Assessment] 12/21/19 12/21/19 12/21/19 06:45 07:00 08:00 Temperature Pulse Rate 110 H 108 H 116 H Pulse Rate [ From Monitor] Respiratory 28 H 28 H Rate Blood Pressure 134/89 139/90 138/94 O2 Sat by Pulse 97 99 97 Oximetry O2 Sat by Pulse 97 Oximetry [ Assessment] 12/21/19 09:47 Temperature Pulse Rate 116 H Pulse Rate [ From Monitor] Respiratory 26 H Rate Blood Pressure 143/97 O2 Sat by Pulse 99 Oximetry O2 Sat by Pulse Oximetry [ Assessment] - Labs CBC & Chem 7: 12/21/19 14:53 12/22/19 04:43 Labs: Abnormal lab results 12/18/19 12/20/19 12/21/19 Range/Units 11:22 18:07 03:28 WBC 29.4 H (4.5-11.0) K/mm3 RBC 2.30 L (3.65-5.03) M/mm3 Hgb 6.8 L (10.1-14.3) gm/dl Hct 20.2 L (30.3-42.9) % RDW 20.2 H (13.2-15.2) % Plt Count 746 H (140-440) K/mm3 Seg Neuts % (Manual) 85.0 H (40.0-70.0) % Lymphocytes % (Manual) 8.0 L (13.4-35.0) % Seg Neutrophils # Man 25.0 H (1.8-7.7) K/mm3 Monocytes # (Manual) 1.5 H (0.0-0.8) K/mm3 Eosinophils # (Manual) 0.6 H (0.0-0.4) K/mm3 Carbon Dioxide (22-30) mmol/L BUN (7-17) mg/dL Creatinine (0.7-1.2) mg/dL POC Glucose 134 H (70-105) Vancomycin Trough (5.0-20.0) ug/mL Crossmatch See Detail 12/21/19 12/21/19 12/21/19 Range/Units 03:28 07:21 08:56 WBC (4.5-11.0) K/mm3 RBC (3.65-5.03) M/mm3 Hgb (10.1-14.3) gm/dl Hct (30.3-42.9) % RDW (13.2-15.2) % Plt Count (140-440) K/mm3 Seg Neuts % (Manual) (40.0-70.0) % Lymphocytes % (Manual) (13.4-35.0) % Seg Neutrophils # Man (1.8-7.7) K/mm3 Monocytes # (Manual) (0.0-0.8) K/mm3 Eosinophils # (Manual) (0.0-0.4) K/mm3 Carbon Dioxide 17 L (22-30) mmol/L BUN 57 H (7-17) mg/dL Creatinine 1.4 H D (0.7-1.2) mg/dL POC Glucose 124 H (70-105) Vancomycin Trough 33.8 H (5.0-20.0) ug/mL Crossmatch 12/21/19 Range/Units 12:06 WBC (4.5-11.0) K/mm3 RBC (3.65-5.03) M/mm3 Hgb (10.1-14.3) gm/dl Hct (30.3-42.9) % RDW (13.2-15.2) % Plt Count (140-440) K/mm3 Seg Neuts % (Manual) (40.0-70.0) % Lymphocytes % (Manual) (13.4-35.0) % Seg Neutrophils # Man (1.8-7.7) K/mm3 Monocytes # (Manual) (0.0-0.8) K/mm3 Eosinophils # (Manual) (0.0-0.4) K/mm3 Carbon Dioxide (22-30) mmol/L BUN (7-17) mg/dL Creatinine (0.7-1.2) mg/dL POC Glucose 116 H (70-105) Vancomycin Trough (5.0-20.0) ug/mL Crossmatch
[2019-12-21] MEDS ORDERED: SODIUM CHLORIDE 0.9% 500 ML 500 ML IV NR (13:00)
[2019-12-21 15:26] LABS: Hematocrit 22.9 % (30.3-42.9); Hemoglobin 7.2 gm/dl (10.1-14.3)
[2019-12-21] MEDS: LACTULOSE 20 GM/30 ML ORAL LIQD PO SCH ×2 (17:15→22:23)
[2019-12-21] MEDS: SCOPOLAMINE TRANSDERMAL PATCH 72 HR TD SCH (17:30)
[2019-12-21] MEDS: QUEtiapine 100 MG TAB PO SCH (22:23)
[2019-12-22] MEDS: chlordiazePOXIDE 25 MG CAP PO SCH ×3 (05:33→21:18)
[2019-12-22 05:44] LABS: Calcium 9.6 mg/dL (8.4-10.2)
[2019-12-22 08:56] LABS: ABG Base Excess -2.6 mmol/L (-2.0-3.0); ABG HCO3 22.1 mmol/L (20.0-26.0); ABG Methemoglobin 0.3 % (0.0-1.5); ABG Oxygen Saturation 96.7 % (95.0-99.0); ABG PCO2 37.5 mm Hg; ABG PH 7.389 pH Units (7.350-7.450); ABG PO2 75.6 mm Hg (80.0-90.0)
--- NOTE | 2019-12-22 09:35 | Progress Note ---
Assessment and Plan /Anemia, microcytic -Continue to hold heparin, transfused 2 units of packed RBC -ordered stool for occult blood - pending /Acute metabolic encephalopathy/toxic encephalopathy due to the above - cont supportive care / Anoxic brain injury: suspected CT head: No acute abnormality. neurology consult placed, EEG ordered showed Generalized slowing. No seizures or epileptiform activity. Per neurology : Patient found to have intact corneal/VOR/cough reflexes, and is withdrawing lower extremities, therefore patient is not found to be brain . However, given that patient had an out of hospital cardiac arrest, the time of which is uncertain, the likelihood of meaningful neurological recovery is somewhat low. /Acute Respiratory failure -s/p intubation, s/p trach and PEG on 12/12 with mechanical ventilation - CTA was done and negative for PE, - Echo quality is poor, showed diastolic dysfunction - continue ICU monitoring - wean OFF vent/O2 as tolerated /Hyperammonemia - likely from liver disease related to EtOH abuse - Patient had elevated ammonia level and treated with lactulose /Metabolic Acidosis -Alcohol ketoacidosis vs hypoprofusion -Continue to monitor /ELevated LFTs, stable now - due to ischemic hepatitis. /Leucocytosis with sepsis - Source MRSA bacteremia and MSSA pneumonia. UA showed pyuria. RUQ US showed no ascites. Completed 7 days of Ceftriaxone on 11/29/2019. - Repeat TTE negative for vegetation. cont abx vancomycin 1 gm IV q 12 hour total 2 week till 12/30/2019 /MSSA pneumonia: on vancomycin till 12/30/2019 /ALcohol USe Disorder - given ongoing Alcohol use almost daily, s/p IV Thiamine - monitor /Severe hypokalemia -Repleted /Seizure disorder: treat with Keppra /H. Influenzae, tracheobronchitis, treated with abx FUll code, family denies DNR Very poor prognosis The high probability of a clinically significant, sudden or life threatening deterioration of the [neurology,respiratory] system(s) required my full and direct attention, intervention and personal management. The aggregate critical care time was [32] minutes. This time is in addition to time spent performing reported procedures but includes the following: [x] Data Review and interpretation [x] Patient assessment and monitoring of vital signs [x] Documentation [x] Medication orders and management Disposition: prognosis poor. 12/17/19: Day 24 on MV, PEEP 6 FiO2 30%, trying to wean, held sq heparin due to drop in h/h and anemia, renewed restraints, fever appears to be due to worsening pneumonia, UA negative, pCXR Impression: Slight interval worsening of a consolidative opacity in the left mid to lower lung, worrisome for pneumonia in the appropriate clinical setting. Adjust Vancomycin dose continue cefepime with ID following. Swollen right arm with Venous doppler of right arm r/o DVT ordered but not done due to COVID-19, 12/18/19: hb 6.3, transfuse one unit PRBC 12/19/19 : H&H stable, continue to monitor clinical status at ICU 12/19: Continue to monitor at ICU, needs placement 12/20: Continue to monitor at ICU, wean off vent as tolerated, needs placement. called family- no one answered -left message 12/21: Continue to monitor at ICU, wean off vent as tolerated, needs placement. Brief History: 54-year-old female with a past medical history of Hypertension, Depression, Tobacco use Disorder, Alcohol use Disorder as confirmed by Daughter and pt's mother presents to the hospital status post cardiac arrest at home. EMS found pt in [place]. They were unable to intubate patient with a ET tube because she was clenching down therefore Joe airway placed. Per the ED physician who evaluated pt, Patient presented with a pulse, intermittent respirations, and bagging support via Joe airway with O2 sat of 100%. Accu-Chek of 71 obtained by EMS. She was intubated in the ER and called for admission. Following admission patient was diagnosed with anoxic brain injury, sepsis with MRSA bacteremia and MSSA pneumonia, alcoholic liver disease. Family member wished for full code, patient currently getting treated with IV antibiotics for sepsis, status post trach and PEG on 12/13/19. Subjective Date of service: 12/22/19 Principal diagnosis: Ac cardiopulmonary arrest; Ac hypoxemic resp failure; Acute encephalopathy Interval history: Patient seen and examined remained on mechanical ventilation with trach, unresponsive, no clinical change family wants to continue full code Discussed with RN at bedside, discussed with embedded case manager for disposition planning Tolerating tube feeding with PEG tube, needs placement - uninsured Objective - Exam Narrative Exam: General appearance: Present: other (on vent comatose, elderly female) - EENT Eyes: no scleral icterus, no conjunctival injection, pupil not reactive ENT: clear oral mucosa, dentition normal, no oropharyngeal erythema Ears: bilateral: normal - Neck Neck: trach on place - Respiratory Respiratory effort: other (on vent) Respiratory: bilateral: rales - Cardiovascular Rhythm: regular Heart Sounds: Present: S1 & S2. Absent: gallop, rub Extremities: pulses intact, No edema, normal color - Gastrointestinal General gastrointestinal: Present: soft, non-tender, non-distended, normal bowel sounds - Integumentary Integumentary: clear, warm, dry - Musculoskeletal Musculoskeletal: does not respond to commend - Neurologic Neurologic: other (intubated with trach and 2+ reflexes throughout) - Psychiatric Psychiatric: no appropriate mood/affect, no intact judgment & insight, no memory intact - Constitutional Vitals: Vital Signs - 12hr 12/21/19 12/21/19 12/21/19 21:45 22:00 22:15 Temperature Pulse Rate 126 H 126 H 121 H Pulse Rate [ From Monitor] Respiratory 19 29 H 29 H Rate Blood Pressure 138/93 141/93 141/93 O2 Sat by Pulse 98 98 98 Oximetry 12/21/19 12/21/19 12/21/19 22:30 22:45 23:01 Temperature Pulse Rate 123 H 123 H 129 H Pulse Rate [ From Monitor] Respiratory 28 H 28 H 13 Rate Blood Pressure 136/87 136/85 119/79 O2 Sat by Pulse 98 98 97 Oximetry 12/21/19 12/21/19 12/21/19 23:05 23:15 23:30 Temperature Pulse Rate 128 H 132 H 134 H Pulse Rate [ From Monitor] Respiratory 20 19 28 H Rate Blood Pressure 119/79 124/79 110/61 O2 Sat by Pulse 97 95 95 Oximetry 12/21/19 12/22/19 12/22/19 23:45 00:00 00:15 Temperature 98.6 F Pulse Rate 133 H 128 H 132 H Pulse Rate [ 122 H From Monitor] Respiratory 30 H 28 H 30 H Rate Blood Pressure 104/63 109/65 121/71 O2 Sat by Pulse 95 99 96 Oximetry 12/22/19 12/22/19 12/22/19 00:30 00:45 00:47 Temperature Pulse Rate 128 H 127 H 128 H Pulse Rate [ From Monitor] Respiratory 29 H 28 H Rate Blood Pressure 107/65 106/65 107/65 O2 Sat by Pulse 96 97 96 Oximetry 12/22/19 12/22/19 12/22/19 01:00 01:15 01:30 Temperature Pulse Rate 125 H 122 H 117 H Pulse Rate [ From Monitor] Respiratory 28 H 29 H 28 H Rate Blood Pressure 101/64 109/68 111/74 O2 Sat by Pulse 97 98 99 Oximetry 12/22/19 12/22/19 12/22/19 01:45 02:00 02:15 Temperature Pulse Rate 116 H 113 H 114 H Pulse Rate [ From Monitor] Respiratory 28 H 28 H 28 H Rate Blood Pressure 111/71 106/72 124/81 O2 Sat by Pulse 99 99 100 Oximetry 12/22/19 12/22/19 12/22/19 02:30 02:45 03:00 Temperature Pulse Rate 113 H 114 H 115 H Pulse Rate [ From Monitor] Respiratory 28 H 28 H 28 H Rate Blood Pressure 123/85 126/81 127/82 O2 Sat by Pulse 100 100 100 Oximetry 12/22/19 12/22/19 12/22/19 03:15 03:30 03:45 Temperature Pulse Rate 118 H 117 H 115 H Pulse Rate [ From Monitor] Respiratory 28 H 28 H 28 H Rate Blood Pressure 117/77 117/76 116/78 O2 Sat by Pulse 100 100 100 Oximetry 12/22/19 12/22/19 12/22/19 04:00 04:07 04:09 Temperature 98.3 F Pulse Rate 115 H 116 H Pulse Rate [ 122 H From Monitor] Respiratory 28 H 28 H Rate Blood Pressure 118/80 O2 Sat by Pulse 100 99 Oximetry 12/22/19 12/22/19 12/22/19 04:10 04:16 04:30 Temperature Pulse Rate 114 H 114 H 114 H Pulse Rate [ From Monitor] Respiratory 28 H 28 H Rate Blood Pressure 123/80 118/80 121/79 O2 Sat by Pulse 100 100 100 Oximetry 12/22/19 12/22/19 12/22/19 04:45 05:00 05:15 Temperature Pulse Rate 115 H 117 H 118 H Pulse Rate [ From Monitor] Respiratory 28 H 29 H 30 H Rate Blood Pressure 126/81 132/87 128/86 O2 Sat by Pulse 100 100 100 Oximetry 12/22/19 12/22/19 12/22/19 05:30 05:45 06:00 Temperature Pulse Rate 119 H 121 H 122 H Pulse Rate [ From Monitor] Respiratory 24 27 H 29 H Rate Blood Pressure 130/83 126/83 126/81 O2 Sat by Pulse 100 100 100 Oximetry 12/22/19 12/22/19 12/22/19 06:15 06:30 06:45 Temperature Pulse Rate 122 H 121 H 121 H Pulse Rate [ From Monitor] Respiratory 20 29 H 28 H Rate Blood Pressure 127/84 125/77 126/79 O2 Sat by Pulse 99 99 100 Oximetry 12/22/19 12/22/19 12/22/19 07:00 07:15 07:30 Temperature Pulse Rate 122 H 122 H 121 H Pulse Rate [ From Monitor] Respiratory 29 H 29 H 29 H Rate Blood Pressure 124/77 127/80 123/75 O2 Sat by Pulse 99 99 99 Oximetry 12/22/19 12/22/19 12/22/19 07:45 08:00 08:19 Temperature Pulse Rate 121 H 120 H 117 H Pulse Rate [ 120 H From Monitor] Respiratory 28 H 28 H Rate Blood Pressure 118/78 127/85 127/77 O2 Sat by Pulse 99 99 100 Oximetry - Labs CBC & Chem 7: 12/23/19 04:30 12/23/19 04:30 Labs: Abnormal lab results 12/18/19 12/21/19 12/21/19 Range/Units 11:22 08:56 12:06 Hgb (10.1-14.3) gm/dl Hct (30.3-42.9) % ABG pO2 (80.0-90.0) mm Hg ABG Base Excess (-2.0-3.0) mmol/L ABG Hemoglobin (12.0-16.0) gm/dl Oxyhemoglobin (95.0-99.0) % Carbon Dioxide (22-30) mmol/L BUN (7-17) mg/dL Creatinine (0.7-1.2) mg/dL Glucose (65-100) mg/dL POC Glucose 116 H (70-105) Vancomycin Trough 33.8 H (5.0-20.0) ug/mL Crossmatch See Detail 12/21/19 12/21/19 12/21/19 Range/Units 14:53 14:54 17:27 Hgb 7.2 L (10.1-14.3) gm/dl Hct 22.9 L (30.3-42.9) % ABG pO2 (80.0-90.0) mm Hg ABG Base Excess (-2.0-3.0) mmol/L ABG Hemoglobin (12.0-16.0) gm/dl Oxyhemoglobin (95.0-99.0) % Carbon Dioxide (22-30) mmol/L BUN (7-17) mg/dL Creatinine (0.7-1.2) mg/dL Glucose (65-100) mg/dL POC Glucose 145 H (70-105) Vancomycin Trough (5.0-20.0) ug/mL Crossmatch See Detail 12/21/19 12/22/19 12/22/19 Range/Units 23:49 04:43 05:56 Hgb (10.1-14.3) gm/dl Hct (30.3-42.9) % ABG pO2 (80.0-90.0) mm Hg ABG Base Excess (-2.0-3.0) mmol/L ABG Hemoglobin (12.0-16.0) gm/dl Oxyhemoglobin (95.0-99.0) % Carbon Dioxide 17 L (22-30) mmol/L BUN 60 H (7-17) mg/dL Creatinine 1.4 H (0.7-1.2) mg/dL Glucose 126 H (65-100) mg/dL POC Glucose 127 H 153 H (70-105) Vancomycin Trough (5.0-20.0) ug/mL Crossmatch 12/22/19 Range/Units 08:40 Hgb (10.1-14.3) gm/dl Hct (30.3-42.9) % ABG pO2 75.6 L (80.0-90.0) mm Hg ABG Base Excess -2.6 L (-2.0-3.0) mmol/L ABG Hemoglobin 6.8 L (12.0-16.0) gm/dl Oxyhemoglobin 94.6 L (95.0-99.0) % Carbon Dioxide (22-30) mmol/L BUN (7-17) mg/dL Creatinine (0.7-1.2) mg/dL Glucose (65-100) mg/dL POC Glucose (70-105) Vancomycin Trough (5.0-20.0) ug/mL Crossmatch
[2019-12-22] MEDS: levETIRAcetam 500 MG/5 ML ORAL LIQD PO SCH ×2 (09:53→21:19)
[2019-12-22] MEDS: SENNOSIDES/DOCUSATE SODIUM 8.6/50 MG TAB PO SCH ×2 (09:53→21:18)
[2019-12-22] MEDS: MIRTAZAPINE 30 MG TAB PO SCH (09:53)
[2019-12-22] MEDS: LACTULOSE 20 GM/30 ML ORAL LIQD PO SCH ×2 (09:53→21:18)
[2019-12-22] MEDS: TAMSULOSIN 0.4 MG CAP PO SCH (09:53)
[2019-12-22] MEDS: hydrOXYzine PAMOATE 25 MG CAP PO SCH ×2 (09:54→21:19)
[2019-12-22] MEDS: LANSOPRAZOLE 30 MG SOLUTAB FEEDTUBE SCH (09:55)
[2019-12-22] MEDS: SERTRALINE 25 MG TAB PO SCH (09:56)
[2019-12-22] MEDS ORDERED: SODIUM CHLORIDE 0.9% 500 ML 500 ML IV SCH (12:00)
--- NOTE | 2019-12-22 16:22 | Progress Note ---
Assessment and Plan Acute cardiopulmonary arrest with ROSC Acute hypoxemic respiratory failure on MVS Acute metabolic-toxic encephalopathy Metabolic acidosis/alcoholic acidosis/Lactic acidosis Ischemic hepatitis Leucocytosis with lactic acidosis Tobacco use disorder ALcohol use Disorder Hypokalemia High grade fevers - repeat CXR in am - resume am Seroquel to see if aqids weaning as ventiolation is adequate and perhaps tachypnea on PSV mode has a neural component - continue Antibiotics per ID recommendations; de-escalate based on HILARIO /sensitivities / clinical progress - continue bronchodilators with routine trach care and pulmonary hygiene per RT - VAP bundle addressed (continue aspiration precautions, HOB > 40) - continue daily SAT's and assessment for readiness for SBT (For PSV trial today) - continue to rest on AC mode qhs - continue Seroquel for tentative delirium and to spare IV sedation - continue Librium at 75 mg po q8h - continue Reglan for G.I. motility - Continue Intermittent sedation until patient's neurologic state can be better evaluated - Continue VTE and Stress ulcer prophylaxis - Continue enteric nutritional support. Monitor glycemic control, with target blood glucose 140-180 mg/dL while critically ill (Avoid hypoglycemia) - Continue to wean supplemental oxygen for target O2 sat's > 90% - ABG and CXR prn - Continue to avoid nephrotoxins, adjust all medications fro GFR and CrCL - Continue to avoid benzodiazepines , as much as possible, to reduce the possibility of delirium - Continue prn analgesia per CPOT score - Continue to maintain of sleep-wake cycle, avoid delirium - PT/OT/ROM exercises- awaiting PT/OT evaluation - Continue mobility protocol and skin assessment per protocol for pressure ulcer prevention - Continue to monitor for clinical seizures - Continue Nicotine withdrawal precautions, alcohol withdrawal precautions - continue other care per attending / other consultants ..... re-evaluate in am & prn CONDITION: CRITICAL PROGNOSIS: GUARDED CODE STATUS: FULL CODE The high probability of a clinically significant, sudden or life-threatening deterioration of the [respiratory, cardiovascular & neurologic] system(s) required my full and direct attention, intervention and personal management. The aggregate critical care time was [35] minutes without overlap. Time includes spent on; [x] Data Review and interpretation [x] Patient assessment and monitoring of vital signs [x] Documentation [x] Medication orders and management Subjective Date of service: 12/22/19 Principal diagnosis: Ac cardiopulmonary arrest; Ac hypoxemic resp failure; Acute encephalopathy Interval history: Patient is seen today for: Acute cardiopulmonary arrest with ROSC; Acute hypoxemic respiratory failure; Acute metabolic-toxic encephalopathy; Ischemic hepatitis; Leucocytosis with lactic acidosis; Tobacco use disorder; Alcohol use Disorder; Hypokalemia; High grade fevers Seen and examined at bedside; 24hour events reviewed; nursing and respiratory care staff consulted; no adverse overnight events reported to me; resting peacefully in bed; AMS is persistent; failed bedside SBT; no emesis or overt as piration; no high grade fevers Objective Vital Signs - 12hr 12/22/19 12/22/19 12/22/19 04:30 04:45 05:00 Temperature Pulse Rate 114 H 115 H 117 H Pulse Rate [ From Monitor] Respiratory 28 H 28 H 29 H Rate Blood Pressure 121/79 126/81 132/87 O2 Sat by Pulse 100 100 100 Oximetry 12/22/19 12/22/19 12/22/19 05:15 05:30 05:45 Temperature Pulse Rate 118 H 119 H 121 H Pulse Rate [ From Monitor] Respiratory 30 H 24 27 H Rate Blood Pressure 128/86 130/83 126/83 O2 Sat by Pulse 100 100 100 Oximetry 12/22/19 12/22/19 12/22/19 06:00 06:15 06:30 Temperature Pulse Rate 122 H 122 H 121 H Pulse Rate [ From Monitor] Respiratory 29 H 20 29 H Rate Blood Pressure 126/81 127/84 125/77 O2 Sat by Pulse 100 99 99 Oximetry 12/22/19 12/22/19 12/22/19 06:45 07:00 07:15 Temperature Pulse Rate 121 H 122 H 122 H Pulse Rate [ From Monitor] Respiratory 28 H 29 H 29 H Rate Blood Pressure 126/79 124/77 127/80 O2 Sat by Pulse 100 99 99 Oximetry 12/22/19 12/22/19 12/22/19 07:30 07:45 08:00 Temperature Pulse Rate 121 H 121 H 120 H Pulse Rate [ 120 H From Monitor] Respiratory 29 H 28 H 28 H Rate Blood Pressure 123/75 118/78 127/85 O2 Sat by Pulse 99 99 99 Oximetry 12/22/19 12/22/19 12/22/19 08:15 08:19 08:30 Temperature Pulse Rate 118 H 117 H 118 H Pulse Rate [ From Monitor] Respiratory 24 28 H Rate Blood Pressure 127/77 127/77 129/84 O2 Sat by Pulse 97 100 100 Oximetry 12/22/19 12/22/19 12/22/19 08:45 09:00 09:15 Temperature Pulse Rate 118 H 120 H 121 H Pulse Rate [ From Monitor] Respiratory 28 H 28 H 28 H Rate Blood Pressure 134/83 135/87 132/88 O2 Sat by Pulse 100 100 100 Oximetry 12/22/19 12/22/19 12/22/19 09:30 09:45 10:00 Temperature Pulse Rate 116 H 123 H 123 H Pulse Rate [ From Monitor] Respiratory 30 H 28 H 28 H Rate Blood Pressure 135/85 131/88 133/88 O2 Sat by Pulse 100 100 100 Oximetry 12/22/19 12/22/19 12/22/19 10:15 10:30 10:45 Temperature Pulse Rate 125 H 127 H 128 H Pulse Rate [ From Monitor] Respiratory 30 H 30 H 30 H Rate Blood Pressure 133/85 133/85 130/87 O2 Sat by Pulse 100 99 99 Oximetry 12/22/19 12/22/19 12/22/19 11:00 11:15 11:30 Temperature Pulse Rate 129 H 130 H 128 H Pulse Rate [ From Monitor] Respiratory 31 H 29 H 31 H Rate Blood Pressure 135/86 131/85 135/84 O2 Sat by Pulse 99 98 98 Oximetry 12/22/19 12/22/19 12/22/19 11:45 11:50 12:00 Temperature Pulse Rate 125 H 129 H 131 H Pulse Rate [ 131 H From Monitor] Respiratory 35 H 31 H Rate Blood Pressure 135/84 141/89 O2 Sat by Pulse 98 97 97 Oximetry 12/22/19 12/22/19 12/22/19 12:08 12:09 12:15 Temperature 98.9 F 98.9 F Pulse Rate 130 H 134 H 128 H Pulse Rate [ From Monitor] Respiratory 28 H 13 28 H Rate Blood Pressure 138/85 138/85 131/79 O2 Sat by Pulse 97 100 99 Oximetry 12/22/19 12/22/19 12/22/19 12:23 12:30 12:45 Temperature 98.9 F Pulse Rate 132 H 133 H 135 H Pulse Rate [ From Monitor] Respiratory 28 H 30 H 33 H Rate Blood Pressure 131/79 134/84 142/88 O2 Sat by Pulse 33 L 97 97 Oximetry 12/22/19 12/22/19 12/22/19 13:01 13:11 13:21 Temperature Pulse Rate 133 H 133 H 133 H Pulse Rate [ From Monitor] Respiratory 32 H 30 H 30 H Rate Blood Pressure 144/88 144/88 146/91 O2 Sat by Pulse 97 96 96 Oximetry 12/22/19 12/22/19 12/22/19 13:30 13:41 13:51 Temperature Pulse Rate 135 H 133 H 129 H Pulse Rate [ From Monitor] Respiratory 32 H 32 H 35 H Rate Blood Pressure 147/93 147/93 149/92 O2 Sat by Pulse 96 96 97 Oximetry 12/22/19 12/22/19 12/22/19 14:01 14:11 14:21 Temperature Pulse Rate 132 H 133 H 134 H Pulse Rate [ From Monitor] Respiratory 30 H 28 H 30 H Rate Blood Pressure 143/88 143/88 147/95 O2 Sat by Pulse 96 96 97 Oximetry 12/22/19 12/22/19 14:30 15:52 Temperature Pulse Rate 134 H 126 H Pulse Rate [ From Monitor] Respiratory 29 H Rate Blood Pressure 149/91 137/89 O2 Sat by Pulse 97 99 Oximetry Constitutional: appears uncomfortable, other (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, with midline tracheostomy and mild dys-synchrony) Eyes: non-icteric ENT: oropharynx moist, other (s/p trach) Neck: supple, no lymphadenopathy, no JVD Effort: mildly labored Ascultation: Bilateral: diminished breath sounds, rhonchi Percussion: Bilateral: not dull Cardiovascular: regular rate and rhythm (tachycardia), other (S1,S2) Gastrointestinal: normoactive bowel sounds, soft, non-tender, non-distended Integumentary: normal Extremities: no cyanosis, no edema, pulses normal, no ischemia or petechiae Neurologic: unable to assess, other (awake but not tracking voice ) Psychiatric: other (Psychiatric: Unable to assess) CBC and BMP: 12/21/19 14:53 12/22/19 04:43 ABG, PT/INR, D-dimer: ABG ABG pH 7.389 pH Units (7.350-7.450) 12/22/19 08:40 ABG pCO2 37.5 mm Hg 12/22/19 08:40 ABG pO2 75.6 mm Hg (80.0-90.0) L 12/22/19 08:40 ABG O2 Saturation 96.7 % (95.0-99.0) 12/22/19 08:40 PT/INR, D-dimer PT 17.0 Sec. (12.2-14.9) H 11/23/19 03:47 INR 1.36 (0.87-1.13) H 11/23/19 03:47 Abnormal lab findings: Abnormal Labs 11/22/19 11/22/19 11/22/19 23:17 23:18 23:27 WBC 21.2 H RBC 3.59 L Hgb 9.8 L Hct MCH 27 L RDW 18.6 H Plt Count 454 H Lymph % (Auto) Arthur % (Auto) Arthur # Seg Neutrophils % Seg Neuts % (Manual) 86.0 H Lymphocytes % (Manual) 9.0 L Seg Neutrophils # Seg Neutrophils # Man 18.2 H Lymphocytes # (Manual) Monocytes # (Manual) 1.1 H Eosinophils # (Manual) Basophils # (Manual) PT INR APTT ABG pH ABG pO2 ABG HCO3 ABG O2 Saturation ABG Base Excess ABG Hemoglobin Oxyhemoglobin Sodium Potassium Chloride Carbon Dioxide BUN Creatinine Glucose POC Glucose 53 L Lactic Acid Calcium Ionized Calcium Phosphorus Magnesium Total Bilirubin AST ALT Alkaline Phosphatase Ammonia Total Creatine Kinase CK-MB (CK-2) CK-MB (CK-2) Rel Index Total Protein Albumin Urine WBC (Auto) 40.0 H Vancomycin Trough Salicylates Acetaminophen Plasma/Serum Alcohol Crossmatch 11/22/19 11/22/19 11/22/19 23:27 23:27 23:27 WBC RBC Hgb Hct MCH RDW Plt Count Lymph % (Auto) Arthur % (Auto) Arthur # Seg Neutrophils % Seg Neuts % (Manual) Lymphocytes % (Manual) Seg Neutrophils # Seg Neutrophils # Man Lymphocytes # (Manual) Monocytes # (Manual) Eosinophils # (Manual) Basophils # (Manual) PT INR APTT ABG pH ABG pO2 ABG HCO3 ABG O2 Saturation ABG Base Excess ABG Hemoglobin Oxyhemoglobin Sodium Potassium 2.4 L* Chloride 85.1 L Carbon Dioxide 19 L BUN Creatinine 0.5 L Glucose 261 H POC Glucose Lactic Acid Calcium Ionized Calcium Phosphorus Magnesium Total Bilirubin AST 609 H ALT 152 H Alkaline Phosphatase 160 H Ammonia 117.0 H Total Creatine Kinase 139 H CK-MB (CK-2) 8.3 H CK-MB (CK-2) Rel Index 5.9 H Total Protein Albumin 3.6 L Urine WBC (Auto) Vancomycin Trough Salicylates < 0.3 L Acetaminophen Plasma/Serum Alcohol Crossmatch 11/22/19 11/22/19 11/23/19 23:27 23:27 01:10 WBC RBC Hgb Hct MCH RDW Plt Count Lymph % (Auto) Arthur % (Auto) Arthur # Seg Neutrophils % Seg Neuts % (Manual) Lymphocytes % (Manual) Seg Neutrophils # Seg Neutrophils # Man Lymphocytes # (Manual) Monocytes # (Manual) Eosinophils # (Manual) Basophils # (Manual) PT INR APTT ABG pH 7.273 L ABG pO2 209.7 H ABG HCO3 ABG O2 Saturation 99.2 H ABG Base Excess -3.9 L ABG Hemoglobin 10.6 L Oxyhemoglobin 93.9 L Sodium Potassium Chloride Carbon Dioxide BUN Creatinine Glucose POC Glucose Lactic Acid Calcium Ionized Calcium Phosphorus Magnesium Total Bilirubin AST ALT Alkaline Phosphatase Ammonia Total Creatine Kinase CK-MB (CK-2) CK-MB (CK-2) Rel Index Total Protein Albumin Urine WBC (Auto) Vancomycin Trough Salicylates Acetaminophen < 5.0 L Plasma/Serum Alcohol 0.08 H Crossmatch 11/23/19 11/23/19 11/23/19 01:19 01:19 03:47 WBC RBC Hgb Hct MCH RDW Plt Count Lymph % (Auto) Arthur % (Auto) Arthur # Seg Neutrophils % Seg Neuts % (Manual) Lymphocytes % (Manual) Seg Neutrophils # Seg Neutrophils # Man Lymphocytes # (Manual) Monocytes # (Manual) Eosinophils # (Manual) Basophils # (Manual) PT 16.3 H INR 1.29 H APTT ABG pH ABG pO2 ABG HCO3 ABG O2 Saturation ABG Base Excess ABG Hemoglobin Oxyhemoglobin Sodium Potassium Chloride Carbon Dioxide BUN Creatinine Glucose POC Glucose Lactic Acid 2.10 H* 5.00 H* Calcium Ionized Calcium Phosphorus Magnesium Total Bilirubin AST ALT Alkaline Phosphatase Ammonia Total Creatine Kinase CK-MB (CK-2) CK-MB (CK-2) Rel Index Total Protein Albumin Urine WBC (Auto) Vancomycin Trough Salicylates Acetaminophen Plasma/Serum Alcohol Crossmatch 11/23/19 11/23/19 11/23/19 03:47 03:47 04:53 WBC RBC Hgb 9.4 L Hct MCH RDW Plt Count Lymph % (Auto) Arthur % (Auto) Arthur # Seg Neutrophils % Seg Neuts % (Manual) Lymphocytes % (Manual) Seg Neutrophils # Seg Neutrophils # Man Lymphocytes # (Manual) Monocytes # (Manual) Eosinophils # (Manual) Basophils # (Manual) PT 17.0 H INR 1.36 H APTT 128.2 H* ABG pH ABG pO2 ABG HCO3 ABG O2 Saturation ABG Base Excess ABG Hemoglobin Oxyhemoglobin Sodium Potassium Chloride Carbon Dioxide 18 L BUN Creatinine 0.5 L Glucose 105 H POC Glucose Lactic Acid Calcium 8.3 L Ionized Calcium Phosphorus 2.40 L Magnesium Total Bilirubin 1.30 H AST 761 H ALT 158 H Alkaline Phosphatase 143 H Ammonia Total Creatine Kinase CK-MB (CK-2) CK-MB (CK-2) Rel Index Total Protein Albumin 2.8 L Urine WBC (Auto) Vancomycin Trough Salicylates Acetaminophen Plasma/Serum Alcohol Crossmatch 11/23/19 11/23/19 11/23/19 05:12 06:32 06:32 WBC 16.8 H RBC 3.31 L Hgb 8.9 L Hct 28.7 L MCH 27 L RDW 18.6 H Plt Count Lymph % (Auto) Arthur % (Auto) Arthur # Seg Neutrophils % Seg Neuts % (Manual) 94.0 H Lymphocytes % (Manual) 1.0 L Seg Neutrophils # Seg Neutrophils # Man 15.8 H Lymphocytes # (Manual) 0.2 L Monocytes # (Manual) Eosinophils # (Manual) Basophils # (Manual) PT INR APTT ABG pH ABG pO2 ABG HCO3 ABG O2 Saturation ABG Base Excess -3.2 L ABG Hemoglobin 9.0 L Oxyhemoglobin 93.6 L Sodium Potassium Chloride Carbon Dioxide BUN Creatinine Glucose POC Glucose Lactic Acid Calcium Ionized Calcium 4.5 L Phosphorus Magnesium Total Bilirubin AST ALT Alkaline Phosphatase Ammonia Total Creatine Kinase CK-MB (CK-2) CK-MB (CK-2) Rel Index Total Protein Albumin Urine WBC (Auto) Vancomycin Trough Salicylates Acetaminophen Plasma/Serum Alcohol Crossmatch 11/23/19 11/24/19 11/24/19 06:32 04:35 04:35 WBC RBC Hgb Hct MCH RDW Plt Count Lymph % (Auto) Arthur % (Auto) Arthur # Seg Neutrophils % Seg Neuts % (Manual) Lymphocytes % (Manual) Seg Neutrophils # Seg Neutrophils # Man Lymphocytes # (Manual) Monocytes # (Manual) Eosinophils # (Manual) Basophils # (Manual) PT INR APTT ABG pH ABG pO2 ABG HCO3 ABG O2 Saturation ABG Base Excess ABG Hemoglobin Oxyhemoglobin Sodium Potassium Chloride Carbon Dioxide BUN Creatinine Glucose POC Glucose Lactic Acid 3.30 H* Calcium Ionized Calcium Phosphorus Magnesium 1.40 L Total Bilirubin AST ALT Alkaline Phosphatase Ammonia 98.0 H Total Creatine Kinase CK-MB (CK-2) CK-MB (CK-2) Rel Index Total Protein Albumin Urine WBC (Auto) Vancomycin Trough Salicylates Acetaminophen Plasma/Serum Alcohol Crossmatch 11/24/19 11/25/19 11/25/19 05:22 04:34 05:05 WBC 17.3 H RBC 2.88 L Hgb 7.8 L Hct 24.6 L MCH 27 L RDW 18.5 H Plt Count Lymph % (Auto) 7.7 L Arthur % (Auto) 9.7 H Arthur # 1.7 H Seg Neutrophils % 82.2 H Seg Neuts % (Manual) Lymphocytes % (Manual) Seg Neutrophils # 14.2 H Seg Neutrophils # Man Lymphocytes # (Manual) Monocytes # (Manual) Eosinophils # (Manual) Basophils # (Manual) PT INR APTT ABG pH 7.475 H ABG pO2 ABG HCO3 29.4 H 32.3 H ABG O2 Saturation ABG Base Excess 5.4 H 6.9 H ABG Hemoglobin 9.0 L 10.6 L Oxyhemoglobin 94.3 L Sodium Potassium Chloride Carbon Dioxide BUN Creatinine Glucose POC Glucose Lactic Acid Calcium Ionized Calcium Phosphorus Magnesium Total Bilirubin AST ALT Alkaline Phosphatase Ammonia Total Creatine Kinase CK-MB (CK-2) CK-MB (CK-2) Rel Index Total Protein Albumin Urine WBC (Auto) Vancomycin Trough Salicylates Acetaminophen Plasma/Serum Alcohol Crossmatch 11/25/19 11/25/19 11/26/19 05:05 22:46 03:31 WBC RBC Hgb Hct MCH RDW Plt Count Lymph % (Auto) Arthur % (Auto) Arthur # Seg Neutrophils % Seg Neuts % (Manual) Lymphocytes % (Manual) Seg Neutrophils # Seg Neutrophils # Man Lymphocytes # (Manual) Monocytes # (Manual) Eosinophils # (Manual) Basophils # (Manual) PT INR APTT ABG pH 7.459 H ABG pO2 ABG HCO3 34.2 H ABG O2 Saturation ABG Base Excess 9.4 H ABG Hemoglobin 7.6 L Oxyhemoglobin 94.8 L Sodium 152 H D 147 H Potassium 2.3 L* D 2.8 L* D Chloride 107.8 H Carbon Dioxide 31 H D 33 H BUN Creatinine 0.6 L 0.6 L Glucose 148 H 177 H POC Glucose Lactic Acid Calcium Ionized Calcium Phosphorus Magnesium Total Bilirubin AST 105 H ALT 71 H Alkaline Phosphatase 155 H Ammonia Total Creatine Kinase CK-MB (CK-2) CK-MB (CK-2) Rel Index Total Protein 5.2 L D Albumin 2.9 L Urine WBC (Auto) Vancomycin Trough Salicylates Acetaminophen Plasma/Serum Alcohol Crossmatch 11/26/19 11/26/19 11/27/19 08:24 08:24 04:20 WBC 12.0 H RBC 3.00 L Hgb 8.0 L 9.3 L Hct 25.9 L 29.7 L MCH 27 L RDW 18.5 H Plt Count Lymph % (Auto) Arthur % (Auto) Arthur # Seg Neutrophils % Seg Neuts % (Manual) 89.0 H Lymphocytes % (Manual) 4.0 L Seg Neutrophils # Seg Neutrophils # Man 10.7 H Lymphocytes # (Manual) 0.5 L Monocytes # (Manual) Eosinophils # (Manual) Basophils # (Manual) PT INR APTT ABG pH ABG pO2 ABG HCO3 ABG O2 Saturation ABG Base Excess ABG Hemoglobin Oxyhemoglobin Sodium 146 H Potassium 3.4 L D Chloride Carbon Dioxide BUN Creatinine 0.5 L Glucose 165 H POC Glucose Lactic Acid Calcium Ionized Calcium Phosphorus Magnesium Total Bilirubin AST 57 H ALT Alkaline Phosphatase 166 H Ammonia Total Creatine Kinase CK-MB (CK-2) CK-MB (CK-2) Rel Index Total Protein Albumin 2.9 L Urine WBC (Auto) Vancomycin Trough Salicylates Acetaminophen Plasma/Serum Alcohol Crossmatch 11/27/19 11/27/19 11/27/19 04:28 04:28 04:42 WBC RBC Hgb Hct MCH RDW Plt Count Lymph % (Auto) Arthur % (Auto) Arthur # Seg Neutrophils % Seg Neuts % (Manual) Lymphocytes % (Manual) Seg Neutrophils # Seg Neutrophils # Man Lymphocytes # (Manual) Monocytes # (Manual) Eosinophils # (Manual) Basophils # (Manual) PT INR APTT ABG pH 7.470 H ABG pO2 74.0 L ABG HCO3 33.8 H ABG O2 Saturation ABG Base Excess 9.1 H ABG Hemoglobin 8.7 L Oxyhemoglobin 94.7 L Sodium 146 H Potassium 2.9 L* Chloride Carbon Dioxide BUN 25 H Creatinine Glucose 213 H POC Glucose Lactic Acid Calcium Ionized Calcium Phosphorus 1.00 L Magnesium Total Bilirubin AST ALT Alkaline Phosphatase Ammonia Total Creatine Kinase CK-MB (CK-2) CK-MB (CK-2) Rel Index Total Protein Albumin Urine WBC (Auto) Vancomycin Trough Salicylates Acetaminophen Plasma/Serum Alcohol Crossmatch 11/27/19 11/27/19 11/27/19 05:37 12:20 15:46 WBC RBC Hgb Hct MCH RDW Plt Count Lymph % (Auto) Arthur % (Auto) Arthur # Seg Neutrophils % Seg Neuts % (Manual) Lymphocytes % (Manual) Seg Neutrophils # Seg Neutrophils # Man Lymphocytes # (Manual) Monocytes # (Manual) Eosinophils # (Manual) Basophils # (Manual) PT INR APTT ABG pH ABG pO2 ABG HCO3 ABG O2 Saturation ABG Base Excess ABG Hemoglobin Oxyhemoglobin Sodium 146 H Potassium 3.5 L D Chloride Carbon Dioxide BUN 24 H Creatinine 0.6 L Glucose 187 H POC Glucose 117 H 220 H Lactic Acid Calcium Ionized Calcium Phosphorus Magnesium Total Bilirubin AST ALT Alkaline Phosphatase Ammonia Total Creatine Kinase CK-MB (CK-2) CK-MB (CK-2) Rel Index Total Protein Albumin Urine WBC (Auto) Vancomycin Trough Salicylates Acetaminophen Plasma/Serum Alcohol Crossmatch 11/27/19 11/28/19 11/28/19 17:28 05:00 05:02 WBC RBC Hgb Hct MCH RDW Plt Count Lymph % (Auto) Arthur % (Auto) Arthur # Seg Neutrophils % Seg Neuts % (Manual) Lymphocytes % (Manual) Seg Neutrophils # Seg Neutrophils # Man Lymphocytes # (Manual) Monocytes # (Manual) Eosinophils # (Manual) Basophils # (Manual) PT INR APTT ABG pH ABG pO2 72.4 L ABG HCO3 33.6 H ABG O2 Saturation 94.1 L ABG Base Excess 7.3 H ABG Hemoglobin Oxyhemoglobin 91.8 L Sodium 146 H Potassium 3.3 L Chloride Carbon Dioxide BUN 25 H Creatinine 0.6 L Glucose 176 H POC Glucose 198 H Lactic Acid Calcium Ionized Calcium Phosphorus Magnesium Total Bilirubin AST ALT Alkaline Phosphatase Ammonia Total Creatine Kinase CK-MB (CK-2) CK-MB (CK-2) Rel Index Total Protein Albumin Urine WBC (Auto) Vancomycin Trough Salicylates Acetaminophen Plasma/Serum Alcohol Crossmatch 11/28/19 11/28/19 11/29/19 05:02 18:55 10:43 WBC 15.2 H 19.0 H RBC 3.06 L 3.01 L Hgb 8.3 L 8.3 L Hct 27.0 L 26.4 L MCH 27 L RDW 19.0 H 19.7 H Plt Count 479 H 611 H Lymph % (Auto) Arthur % (Auto) Arthur # Seg Neutrophils % Seg Neuts % (Manual) 92.0 H Lymphocytes % (Manual) 2.0 L Seg Neutrophils # Seg Neutrophils # Man 14.0 H Lymphocytes # (Manual) 0.3 L Monocytes # (Manual) Eosinophils # (Manual) Basophils # (Manual) PT INR APTT ABG pH ABG pO2 ABG HCO3 ABG O2 Saturation ABG Base Excess ABG Hemoglobin Oxyhemoglobin Sodium Potassium Chloride Carbon Dioxide BUN Creatinine Glucose POC Glucose 138 H Lactic Acid Calcium Ionized Calcium Phosphorus Magnesium Total Bilirubin AST ALT Alkaline Phosphatase Ammonia Total Creatine Kinase CK-MB (CK-2) CK-MB (CK-2) Rel Index Total Protein Albumin Urine WBC (Auto) Vancomycin Trough Salicylates Acetaminophen Plasma/Serum Alcohol Crossmatch 11/29/19 11/29/19 11/29/19 10:43 12:27 19:25 WBC RBC Hgb Hct MCH RDW Plt Count Lymph % (Auto) Arthur % (Auto) Arthur # Seg Neutrophils % Seg Neuts % (Manual) Lymphocytes % (Manual) Seg Neutrophils # Seg Neutrophils # Man Lymphocytes # (Manual) Monocytes # (Manual) Eosinophils # (Manual) Basophils # (Manual) PT INR APTT ABG pH ABG pO2 ABG HCO3 ABG O2 Saturation ABG Base Excess ABG Hemoglobin Oxyhemoglobin Sodium Potassium 2.8 L* Chloride Carbon Dioxide BUN 20 H Creatinine 0.5 L Glucose 121 H POC Glucose 128 H 120 H Lactic Acid Calcium Ionized Calcium Phosphorus Magnesium Total Bilirubin AST ALT Alkaline Phosphatase Ammonia Total Creatine Kinase CK-MB (CK-2) CK-MB (CK-2) Rel Index Total Protein Albumin Urine WBC (Auto) Vancomycin Trough Salicylates Acetaminophen Plasma/Serum Alcohol Crossmatch 11/29/19 11/30/19 11/30/19 23:46 04:10 05:02 WBC RBC Hgb Hct MCH RDW Plt Count Lymph % (Auto) Arthur % (Auto) Arthur # Seg Neutrophils % Seg Neuts % (Manual) Lymphocytes % (Manual) Seg Neutrophils # Seg Neutrophils # Man Lymphocytes # (Manual) Monocytes # (Manual) Eosinophils # (Manual) Basophils # (Manual) PT INR APTT ABG pH ABG pO2 76.3 L ABG HCO3 32.5 H ABG O2 Saturation ABG Base Excess 6.9 H ABG Hemoglobin 8.0 L Oxyhemoglobin 92.6 L Sodium Potassium Chloride Carbon Dioxide BUN Creatinine Glucose POC Glucose 116 H 128 H Lactic Acid Calcium Ionized Calcium Phosphorus Magnesium Total Bilirubin AST ALT Alkaline Phosphatase Ammonia Total Creatine Kinase CK-MB (CK-2) CK-MB (CK-2) Rel Index Total Protein Albumin Urine WBC (Auto) Vancomycin Trough Salicylates Acetaminophen Plasma/Serum Alcohol Crossmatch 11/30/19 11/30/19 11/30/19 05:25 05:25 12:59 WBC 18.4 H RBC 3.10 L Hgb 8.5 L Hct 27.5 L MCH 27 L RDW 20.9 H Plt Count 691 H Lymph % (Auto) 7.1 L Arthur % (Auto) 7.7 H Arthur # 1.4 H Seg Neutrophils % 83.4 H Seg Neuts % (Manual) Lymphocytes % (Manual) Seg Neutrophils # 15.4 H Seg Neutrophils # Man Lymphocytes # (Manual) Monocytes # (Manual) Eosinophils # (Manual) Basophils # (Manual) PT INR APTT ABG pH ABG pO2 ABG HCO3 ABG O2 Saturation ABG Base Excess ABG Hemoglobin Oxyhemoglobin Sodium 146 H Potassium Chloride 107.2 H Carbon Dioxide BUN Creatinine 0.5 L Glucose 132 H POC Glucose 124 H Lactic Acid Calcium Ionized Calcium Phosphorus Magnesium Total Bilirubin AST 246 H ALT 274 H Alkaline Phosphatase 203 H Ammonia Total Creatine Kinase CK-MB (CK-2) CK-MB (CK-2) Rel Index Total Protein 5.4 L Albumin 2.9 L Urine WBC (Auto) Vancomycin Trough Salicylates Acetaminophen Plasma/Serum Alcohol Crossmatch 11/30/19 12/01/19 12/01/19 17:53 00:05 05:10 WBC RBC Hgb Hct MCH RDW Plt Count Lymph % (Auto) Arthur % (Auto) Arthur # Seg Neutrophils % Seg Neuts % (Manual) Lymphocytes % (Manual) Seg Neutrophils # Seg Neutrophils # Man Lymphocytes # (Manual) Monocytes # (Manual) Eosinophils # (Manual) Basophils # (Manual) PT INR APTT ABG pH ABG pO2 ABG HCO3 ABG O2 Saturation ABG Base Excess ABG Hemoglobin Oxyhemoglobin Sodium Potassium Chloride Carbon Dioxide BUN Creatinine Glucose POC Glucose 113 H 143 H 145 H Lactic Acid Calcium Ionized Calcium Phosphorus Magnesium Total Bilirubin AST ALT Alkaline Phosphatase Ammonia Total Creatine Kinase CK-MB (CK-2) CK-MB (CK-2) Rel Index Total Protein Albumin Urine WBC (Auto) Vancomycin Trough Salicylates Acetaminophen Plasma/Serum Alcohol Crossmatch 12/01/19 12/01/19 12/01/19 05:33 08:23 08:23 WBC 22.7 H RBC 2.88 L Hgb 7.9 L Hct 25.2 L MCH 27 L RDW 21.0 H Plt Count 732 H Lymph % (Auto) Arthur % (Auto) Arthur # Seg Neutrophils % Seg Neuts % (Manual) 91.0 H Lymphocytes % (Manual) 3.0 L Seg Neutrophils # Seg Neutrophils # Man 20.7 H Lymphocytes # (Manual) 0.7 L Monocytes # (Manual) 1.1 H Eosinophils # (Manual) Basophils # (Manual) PT INR APTT ABG pH ABG pO2 68.6 L ABG HCO3 34.1 H ABG O2 Saturation ABG Base Excess 9.0 H ABG Hemoglobin 6.5 L Oxyhemoglobin 94.7 L Sodium Potassium Chloride Carbon Dioxide BUN Creatinine 0.5 L Glucose 125 H POC Glucose Lactic Acid Calcium Ionized Calcium Phosphorus Magnesium Total Bilirubin AST ALT Alkaline Phosphatase Ammonia Total Creatine Kinase CK-MB (CK-2) CK-MB (CK-2) Rel Index Total Protein Albumin Urine WBC (Auto) Vancomycin Trough Salicylates Acetaminophen Plasma/Serum Alcohol Crossmatch 12/01/19 12/01/19 12/01/19 13:21 17:54 20:59 WBC RBC Hgb Hct MCH RDW Plt Count Lymph % (Auto) Arthur % (Auto) Arthur # Seg Neutrophils % Seg Neuts % (Manual) Lymphocytes % (Manual) Seg Neutrophils # Seg Neutrophils # Man Lymphocytes # (Manual) Monocytes # (Manual) Eosinophils # (Manual) Basophils # (Manual) PT INR APTT ABG pH ABG pO2 78.3 L ABG HCO3 33.8 H ABG O2 Saturation 94.9 L ABG Base Excess 7.9 H ABG Hemoglobin 11.5 L Oxyhemoglobin 92.3 L Sodium Potassium Chloride Carbon Dioxide BUN Creatinine Glucose POC Glucose 111 H 115 H Lactic Acid Calcium Ionized Calcium Phosphorus Magnesium Total Bilirubin AST ALT Alkaline Phosphatase Ammonia Total Creatine Kinase CK-MB (CK-2) CK-MB (CK-2) Rel Index Total Protein Albumin Urine WBC (Auto) Vancomycin Trough Salicylates Acetaminophen Plasma/Serum Alcohol Crossmatch 12/02/19 12/03/19 12/04/19 12:55 20:00 04:26 WBC 15.2 H RBC 2.69 L Hgb 7.4 L Hct 23.6 L MCH 27 L RDW 19.9 H Plt Count 838 H Lymph % (Auto) Arthur % (Auto) Arthur # Seg Neutrophils % Seg Neuts % (Manual) Lymphocytes % (Manual) Seg Neutrophils # Seg Neutrophils # Man Lymphocytes # (Manual) Monocytes # (Manual) Eosinophils # (Manual) Basophils # (Manual) PT INR APTT ABG pH ABG pO2 68.3 L ABG HCO3 33.5 H ABG O2 Saturation 93.5 L ABG Base Excess 8.4 H ABG Hemoglobin 7.3 L Oxyhemoglobin 90.9 L Sodium Potassium Chloride Carbon Dioxide BUN Creatinine Glucose POC Glucose 107 H Lactic Acid Calcium Ionized Calcium Phosphorus Magnesium Total Bilirubin AST ALT Alkaline Phosphatase Ammonia Total Creatine Kinase CK-MB (CK-2) CK-MB (CK-2) Rel Index Total Protein Albumin Urine WBC (Auto) Vancomycin Trough Salicylates Acetaminophen Plasma/Serum Alcohol Crossmatch 12/04/19 12/04/19 12/04/19 04:26 07:45 12:02 WBC 15.9 H RBC 2.88 L Hgb 7.9 L Hct 25.1 L MCH RDW 20.4 H Plt Count 839 H Lymph % (Auto) 11.3 L Arthur % (Auto) 15.2 H Arthur # 2.4 H Seg Neutrophils % 72.4 H Seg Neuts % (Manual) Lymphocytes % (Manual) Seg Neutrophils # 11.5 H Seg Neutrophils # Man Lymphocytes # (Manual) Monocytes # (Manual) Eosinophils # (Manual) Basophils # (Manual) PT INR APTT ABG pH ABG pO2 ABG HCO3 ABG O2 Saturation ABG Base Excess ABG Hemoglobin Oxyhemoglobin Sodium Potassium Chloride 96.5 L Carbon Dioxide BUN 21 H Creatinine 0.6 L Glucose 107 H POC Glucose 138 H Lactic Acid Calcium Ionized Calcium Phosphorus Magnesium Total Bilirubin AST ALT Alkaline Phosphatase Ammonia Total Creatine Kinase CK-MB (CK-2) CK-MB (CK-2) Rel Index Total Protein Albumin Urine WBC (Auto) Vancomycin Trough Salicylates Acetaminophen Plasma/Serum Alcohol Crossmatch 12/04/19 12/05/19 12/05/19 18:16 11:55 18:36 WBC RBC Hgb Hct MCH RDW Plt Count Lymph % (Auto) Arthur % (Auto) Arthur # Seg Neutrophils % Seg Neuts % (Manual) Lymphocytes % (Manual) Seg Neutrophils # Seg Neutrophils # Man Lymphocytes # (Manual) Monocytes # (Manual) Eosinophils # (Manual) Basophils # (Manual) PT INR APTT ABG pH ABG pO2 ABG HCO3 ABG O2 Saturation ABG Base Excess ABG Hemoglobin Oxyhemoglobin Sodium Potassium Chloride Carbon Dioxide BUN Creatinine Glucose POC Glucose 135 H 125 H 135 H Lactic Acid Calcium Ionized Calcium Phosphorus Magnesium Total Bilirubin AST ALT Alkaline Phosphatase Ammonia Total Creatine Kinase CK-MB (CK-2) CK-MB (CK-2) Rel Index Total Protein Albumin Urine WBC (Auto) Vancomycin Trough Salicylates Acetaminophen Plasma/Serum Alcohol Crossmatch 12/05/19 12/06/19 12/06/19 23:30 04:14 05:43 WBC RBC Hgb Hct MCH RDW Plt Count Lymph % (Auto) Arthur % (Auto) Arthur # Seg Neutrophils % Seg Neuts % (Manual) Lymphocytes % (Manual) Seg Neutrophils # Seg Neutrophils # Man Lymphocytes # (Manual) Monocytes # (Manual) Eosinophils # (Manual) Basophils # (Manual) PT INR APTT ABG pH ABG pO2 ABG HCO3 ABG O2 Saturation ABG Base Excess ABG Hemoglobin Oxyhemoglobin Sodium Potassium 5.6 H Chloride 95.0 L Carbon Dioxide BUN 48 H Creatinine 1.3 H D Glucose POC Glucose 126 H 121 H Lactic Acid Calcium Ionized Calcium Phosphorus Magnesium Total Bilirubin AST 89 H ALT 98 H Alkaline Phosphatase 476 H Ammonia Total Creatine Kinase CK-MB (CK-2) CK-MB (CK-2) Rel Index Total Protein Albumin 2.8 L Urine WBC (Auto) Vancomycin Trough Salicylates Acetaminophen Plasma/Serum Alcohol Crossmatch 12/06/19 12/06/19 12/07/19 10:39 14:34 00:19 WBC 17.3 H RBC 2.60 L Hgb 7.1 L Hct 22.7 L MCH 27 L RDW 20.1 H Plt Count 832 H Lymph % (Auto) Arthur % (Auto) Arthur # Seg Neutrophils % Seg Neuts % (Manual) Lymphocytes % (Manual) Seg Neutrophils # Seg Neutrophils # Man Lymphocytes # (Manual) Monocytes # (Manual) Eosinophils # (Manual) Basophils # (Manual) PT INR APTT ABG pH ABG pO2 ABG HCO3 ABG O2 Saturation ABG Base Excess ABG Hemoglobin Oxyhemoglobin Sodium Potassium Chloride Carbon Dioxide BUN Creatinine Glucose POC Glucose 128 H 136 H Lactic Acid Calcium Ionized Calcium Phosphorus Magnesium Total Bilirubin AST ALT Alkaline Phosphatase Ammonia Total Creatine Kinase CK-MB (CK-2) CK-MB (CK-2) Rel Index Total Protein Albumin Urine WBC (Auto) Vancomycin Trough Salicylates Acetaminophen Plasma/Serum Alcohol Crossmatch 12/07/19 12/07/19 12/07/19 03:44 03:44 05:53 WBC 16.2 H RBC 2.56 L Hgb 7.1 L Hct 22.3 L MCH RDW 19.4 H Plt Count 782 H Lymph % (Auto) Arthur % (Auto) Arthur # Seg Neutrophils % Seg Neuts % (Manual) Lymphocytes % (Manual) Seg Neutrophils # Seg Neutrophils # Man Lymphocytes # (Manual) Monocytes # (Manual) Eosinophils # (Manual) Basophils # (Manual) PT INR APTT ABG pH ABG pO2 ABG HCO3 ABG O2 Saturation ABG Base Excess ABG Hemoglobin Oxyhemoglobin Sodium Potassium Chloride 95.6 L Carbon Dioxide BUN 56 H Creatinine 1.4 H Glucose 120 H POC Glucose 128 H Lactic Acid Calcium 10.3 H Ionized Calcium Phosphorus Magnesium Total Bilirubin AST ALT Alkaline Phosphatase Ammonia Total Creatine Kinase CK-MB (CK-2) CK-MB (CK-2) Rel Index Total Protein Albumin Urine WBC (Auto) Vancomycin Trough Salicylates Acetaminophen Plasma/Serum Alcohol Crossmatch 12/07/19 12/07/19 12/08/19 12:54 23:47 00:20 WBC RBC Hgb Hct MCH RDW Plt Count Lymph % (Auto) Arthur % (Auto) Arthur # Seg Neutrophils % Seg Neuts % (Manual) Lymphocytes % (Manual) Seg Neutrophils # Seg Neutrophils # Man Lymphocytes # (Manual) Monocytes # (Manual) Eosinophils # (Manual) Basophils # (Manual) PT INR APTT ABG pH ABG pO2 ABG HCO3 ABG O2 Saturation ABG Base Excess ABG Hemoglobin Oxyhemoglobin Sodium Potassium Chloride Carbon Dioxide BUN Creatinine Glucose POC Glucose 128 H 130 H 124 H Lactic Acid Calcium Ionized Calcium Phosphorus Magnesium Total Bilirubin AST ALT Alkaline Phosphatase Ammonia Total Creatine Kinase CK-MB (CK-2) CK-MB (CK-2) Rel Index Total Protein Albumin Urine WBC (Auto) Vancomycin Trough Salicylates Acetaminophen Plasma/Serum Alcohol Crossmatch 12/08/19 12/08/19 12/08/19 06:38 12:04 18:26 WBC RBC Hgb Hct MCH RDW Plt Count Lymph % (Auto) Arthur % (Auto) Arthur # Seg Neutrophils % Seg Neuts % (Manual) Lymphocytes % (Manual) Seg Neutrophils # Seg Neutrophils # Man Lymphocytes # (Manual) Monocytes # (Manual) Eosinophils # (Manual) Basophils # (Manual) PT INR APTT ABG pH ABG pO2 ABG HCO3 ABG O2 Saturation ABG Base Excess ABG Hemoglobin Oxyhemoglobin Sodium Potassium Chloride Carbon Dioxide BUN Creatinine Glucose POC Glucose 137 H 129 H 150 H Lactic Acid Calcium Ionized Calcium Phosphorus Magnesium Total Bilirubin AST ALT Alkaline Phosphatase Ammonia Total Creatine Kinase CK-MB (CK-2) CK-MB (CK-2) Rel Index Total Protein Albumin Urine WBC (Auto) Vancomycin Trough Salicylates Acetaminophen Plasma/Serum Alcohol Crossmatch 12/09/19 12/09/19 12/09/19 00:56 05:34 06:13 WBC RBC Hgb Hct MCH RDW Plt Count Lymph % (Auto) Arthur % (Auto) Arthur # Seg Neutrophils % Seg Neuts % (Manual) Lymphocytes % (Manual) Seg Neutrophils # Seg Neutrophils # Man Lymphocytes # (Manual) Monocytes # (Manual) Eosinophils # (Manual) Basophils # (Manual) PT INR APTT ABG pH ABG pO2 ABG HCO3 ABG O2 Saturation ABG Base Excess ABG Hemoglobin Oxyhemoglobin Sodium 146 H Potassium Chloride Carbon Dioxide BUN 66 H Creatinine 1.9 H Glucose 116 H POC Glucose 130 H 130 H Lactic Acid Calcium Ionized Calcium Phosphorus Magnesium Total Bilirubin AST ALT Alkaline Phosphatase Ammonia Total Creatine Kinase CK-MB (CK-2) CK-MB (CK-2) Rel Index Total Protein Albumin Urine WBC (Auto) Vancomycin Trough Salicylates Acetaminophen Plasma/Serum Alcohol Crossmatch 12/09/19 12/09/19 12/10/19 11:52 17:50 00:14 WBC RBC Hgb Hct MCH RDW Plt Count Lymph % (Auto) Arthur % (Auto) Arthur # Seg Neutrophils % Seg Neuts % (Manual) Lymphocytes % (Manual) Seg Neutrophils # Seg Neutrophils # Man Lymphocytes # (Manual) Monocytes # (Manual) Eosinophils # (Manual) Basophils # (Manual) PT INR APTT ABG pH ABG pO2 ABG HCO3 ABG O2 Saturation ABG Base Excess ABG Hemoglobin Oxyhemoglobin Sodium Potassium Chloride Carbon Dioxide BUN Creatinine Glucose POC Glucose 135 H 120 H 116 H Lactic Acid Calcium Ionized Calcium Phosphorus Magnesium Total Bilirubin AST ALT Alkaline Phosphatase Ammonia Total Creatine Kinase CK-MB (CK-2) CK-MB (CK-2) Rel Index Total Protein Albumin Urine WBC (Auto) Vancomycin Trough Salicylates Acetaminophen Plasma/Serum Alcohol Crossmatch 12/10/19 12/10/19 12/10/19 05:38 11:38 17:34 WBC RBC Hgb Hct MCH RDW Plt Count Lymph % (Auto) Arthur % (Auto) Arthur # Seg Neutrophils % Seg Neuts % (Manual) Lymphocytes % (Manual) Seg Neutrophils # Seg Neutrophils # Man Lymphocytes # (Manual) Monocytes # (Manual) Eosinophils # (Manual) Basophils # (Manual) PT INR APTT ABG pH ABG pO2 ABG HCO3 ABG O2 Saturation ABG Base Excess ABG Hemoglobin Oxyhemoglobin Sodium Potassium Chloride Carbon Dioxide BUN Creatinine Glucose POC Glucose 115 H 112 H 130 H Lactic Acid Calcium Ionized Calcium Phosphorus Magnesium Total Bilirubin AST ALT Alkaline Phosphatase Ammonia Total Creatine Kinase CK-MB (CK-2) CK-MB (CK-2) Rel Index Total Protein Albumin Urine WBC (Auto) Vancomycin Trough Salicylates Acetaminophen Plasma/Serum Alcohol Crossmatch 12/11/19 12/11/19 12/11/19 00:20 05:31 12:22 WBC RBC Hgb Hct MCH RDW Plt Count Lymph % (Auto) Arthur % (Auto) Arthur # Seg Neutrophils % Seg Neuts % (Manual) Lymphocytes % (Manual) Seg Neutrophils # Seg Neutrophils # Man Lymphocytes # (Manual) Monocytes # (Manual) Eosinophils # (Manual) Basophils # (Manual) PT INR APTT ABG pH ABG pO2 ABG HCO3 ABG O2 Saturation ABG Base Excess ABG Hemoglobin Oxyhemoglobin Sodium Potassium Chloride Carbon Dioxide BUN Creatinine Glucose POC Glucose 124 H 132 H 128 H Lactic Acid Calcium Ionized Calcium Phosphorus Magnesium Total Bilirubin AST ALT Alkaline Phosphatase Ammonia Total Creatine Kinase CK-MB (CK-2) CK-MB (CK-2) Rel Index Total Protein Albumin Urine WBC (Auto) Vancomycin Trough Salicylates Acetaminophen Plasma/Serum Alcohol Crossmatch 12/11/19 12/11/19 12/12/19 18:04 23:42 03:51 WBC RBC Hgb Hct MCH RDW Plt Count Lymph % (Auto) Arthur % (Auto) Arthur # Seg Neutrophils % Seg Neuts % (Manual) Lymphocytes % (Manual) Seg Neutrophils # Seg Neutrophils # Man Lymphocytes # (Manual) Monocytes # (Manual) Eosinophils # (Manual) Basophils # (Manual) PT INR APTT ABG pH ABG pO2 ABG HCO3 ABG O2 Saturation ABG Base Excess ABG Hemoglobin Oxyhemoglobin Sodium 149 H Potassium Chloride Carbon Dioxide 20 L D BUN 77 H Creatinine 2.8 H Glucose POC Glucose 133 H 154 H Lactic Acid Calcium Ionized Calcium Phosphorus Magnesium Total Bilirubin AST ALT Alkaline Phosphatase Ammonia Total Creatine Kinase CK-MB (CK-2) CK-MB (CK-2) Rel Index Total Protein Albumin Urine WBC (Auto) Vancomycin Trough Salicylates Acetaminophen Plasma/Serum Alcohol Crossmatch 12/12/19 12/12/19 12/12/19 05:18 05:26 10:30 WBC 18.0 H RBC 2.51 L Hgb 6.8 L Hct 22.0 L MCH 27 L RDW 19.9 H Plt Count 582 H Lymph % (Auto) Arthur % (Auto) Arthur # Seg Neutrophils % Seg Neuts % (Manual) Lymphocytes % (Manual) Seg Neutrophils # Seg Neutrophils # Man Lymphocytes # (Manual) Monocytes # (Manual) Eosinophils # (Manual) Basophils # (Manual) PT INR APTT ABG pH ABG pO2 ABG HCO3 ABG O2 Saturation ABG Base Excess ABG Hemoglobin Oxyhemoglobin Sodium Potassium Chloride Carbon Dioxide BUN Creatinine Glucose POC Glucose 135 H Lactic Acid Calcium Ionized Calcium Phosphorus Magnesium Total Bilirubin AST ALT Alkaline Phosphatase Ammonia Total Creatine Kinase CK-MB (CK-2) CK-MB (CK-2) Rel Index Total Protein Albumin Urine WBC (Auto) Vancomycin Trough Salicylates Acetaminophen Plasma/Serum Alcohol Crossmatch See Detail 12/12/19 12/12/19 12/12/19 11:44 18:10 23:21 WBC RBC Hgb Hct MCH RDW Plt Count Lymph % (Auto) Arthur % (Auto) Arthur # Seg Neutrophils % Seg Neuts % (Manual) Lymphocytes % (Manual) Seg Neutrophils # Seg Neutrophils # Man Lymphocytes # (Manual) Monocytes # (Manual) Eosinophils # (Manual) Basophils # (Manual) PT INR APTT ABG pH ABG pO2 ABG HCO3 ABG O2 Saturation ABG Base Excess ABG Hemoglobin Oxyhemoglobin Sodium Potassium Chloride Carbon Dioxide BUN Creatinine Glucose POC Glucose 108 H 107 H 126 H Lactic Acid Calcium Ionized Calcium Phosphorus Magnesium Total Bilirubin AST ALT Alkaline Phosphatase Ammonia Total Creatine Kinase CK-MB (CK-2) CK-MB (CK-2) Rel Index Total Protein Albumin Urine WBC (Auto) Vancomycin Trough Salicylates Acetaminophen Plasma/Serum Alcohol Crossmatch 12/13/19 12/13/19 12/13/19 05:41 07:48 07:48 WBC 38.3 H RBC 2.37 L Hgb 6.3 L Hct 20.9 L MCH 27 L RDW 20.2 H Plt Count 546 H Lymph % (Auto) Arthur % (Auto) Arthur # Seg Neutrophils % Seg Neuts % (Manual) 93.0 H Lymphocytes % (Manual) 1.0 L Seg Neutrophils # Seg Neutrophils # Man 35.6 H Lymphocytes # (Manual) 0.4 L Monocytes # (Manual) Eosinophils # (Manual) Basophils # (Manual) 0.4 H PT INR APTT ABG pH ABG pO2 ABG HCO3 ABG O2 Saturation ABG Base Excess ABG Hemoglobin Oxyhemoglobin Sodium 152 H Potassium 3.1 L D Chloride 111.9 H Carbon Dioxide 21 L BUN 53 H Creatinine 1.9 H Glucose 141 H POC Glucose 128 H Lactic Acid Calcium Ionized Calcium Phosphorus Magnesium Total Bilirubin AST ALT Alkaline Phosphatase 316 H Ammonia Total Creatine Kinase CK-MB (CK-2) CK-MB (CK-2) Rel Index Total Protein Albumin 2.4 L Urine WBC (Auto) Vancomycin Trough Salicylates Acetaminophen Plasma/Serum Alcohol Crossmatch 12/13/19 12/13/19 12/14/19 18:17 23:19 05:36 WBC RBC Hgb Hct MCH RDW Plt Count Lymph % (Auto) Arthur % (Auto) Arthur # Seg Neutrophils % Seg Neuts % (Manual) Lymphocytes % (Manual) Seg Neutrophils # Seg Neutrophils # Man Lymphocytes # (Manual) Monocytes # (Manual) Eosinophils # (Manual) Basophils # (Manual) PT INR APTT ABG pH ABG pO2 ABG HCO3 ABG O2 Saturation ABG Base Excess ABG Hemoglobin Oxyhemoglobin Sodium Potassium Chloride Carbon Dioxide BUN Creatinine Glucose POC Glucose 141 H 158 H 182 H Lactic Acid Calcium Ionized Calcium Phosphorus Magnesium Total Bilirubin AST ALT Alkaline Phosphatase Ammonia Total Creatine Kinase CK-MB (CK-2) CK-MB (CK-2) Rel Index Total Protein Albumin Urine WBC (Auto) Vancomycin Trough Salicylates Acetaminophen Plasma/Serum Alcohol Crossmatch 12/14/19 12/14/19 12/14/19 08:48 08:48 10:31 WBC 33.3 H RBC 2.70 L Hgb 7.9 L 8.0 L Hct 25.3 L 24.0 L MCH RDW 19.2 H Plt Count 476 H Lymph % (Auto) Arthur % (Auto) Arthur # Seg Neutrophils % Seg Neuts % (Manual) Lymphocytes % (Manual) Seg Neutrophils # Seg Neutrophils # Man Lymphocytes # (Manual) Monocytes # (Manual) Eosinophils # (Manual) Basophils # (Manual) PT INR APTT ABG pH ABG pO2 ABG HCO3 ABG O2 Saturation ABG Base Excess ABG Hemoglobin Oxyhemoglobin Sodium 153 H Potassium 2.5 L* Chloride 114.9 H Carbon Dioxide 20 L BUN 38 H Creatinine 1.4 H Glucose 177 H POC Glucose Lactic Acid Calcium Ionized Calcium Phosphorus Magnesium Total Bilirubin AST ALT Alkaline Phosphatase Ammonia Total Creatine Kinase CK-MB (CK-2) CK-MB (CK-2) Rel Index Total Protein Albumin Urine WBC (Auto) Vancomycin Trough Salicylates Acetaminophen Plasma/Serum Alcohol Crossmatch 12/14/19 12/14/19 12/14/19 12:57 16:15 17:50 WBC RBC Hgb Hct MCH RDW Plt Count Lymph % (Auto) Arthur % (Auto) Arthur # Seg Neutrophils % Seg Neuts % (Manual) Lymphocytes % (Manual) Seg Neutrophils # Seg Neutrophils # Man Lymphocytes # (Manual) Monocytes # (Manual) Eosinophils # (Manual) Basophils # (Manual) PT INR APTT ABG pH ABG pO2 73.6 L ABG HCO3 ABG O2 Saturation ABG Base Excess ABG Hemoglobin 7.6 L Oxyhemoglobin 94.0 L Sodium Potassium Chloride Carbon Dioxide BUN Creatinine Glucose POC Glucose 174 H 150 H Lactic Acid Calcium Ionized Calcium Phosphorus Magnesium Total Bilirubin AST ALT Alkaline Phosphatase Ammonia Total Creatine Kinase CK-MB (CK-2) CK-MB (CK-2) Rel Index Total Protein Albumin Urine WBC (Auto) Vancomycin Trough Salicylates Acetaminophen Plasma/Serum Alcohol Crossmatch 12/15/19 12/15/19 12/15/19 00:28 05:27 07:23 WBC 30.0 H RBC 3.11 L Hgb 8.6 L Hct 27.7 L MCH RDW 20.0 H Plt Count 473 H Lymph % (Auto) Arthur % (Auto) Arthur # Seg Neutrophils % Seg Neuts % (Manual) Lymphocytes % (Manual) Seg Neutrophils # Seg Neutrophils # Man Lymphocytes # (Manual) Monocytes # (Manual) Eosinophils # (Manual) Basophils # (Manual) PT INR APTT ABG pH ABG pO2 ABG HCO3 ABG O2 Saturation ABG Base Excess ABG Hemoglobin Oxyhemoglobin Sodium Potassium Chloride Carbon Dioxide BUN Creatinine Glucose POC Glucose 167 H 148 H Lactic Acid Calcium Ionized Calcium Phosphorus Magnesium Total Bilirubin AST ALT Alkaline Phosphatase Ammonia Total Creatine Kinase CK-MB (CK-2) CK-MB (CK-2) Rel Index Total Protein Albumin Urine WBC (Auto) Vancomycin Trough Salicylates Acetaminophen Plasma/Serum Alcohol Crossmatch 12/15/19 12/15/19 12/15/19 07:23 12:21 17:41 WBC RBC Hgb Hct MCH RDW Plt Count Lymph % (Auto) Arthur % (Auto) Arthur # Seg Neutrophils % Seg Neuts % (Manual) Lymphocytes % (Manual) Seg Neutrophils # Seg Neutrophils # Man Lymphocytes # (Manual) Monocytes # (Manual) Eosinophils # (Manual) Basophils # (Manual) PT INR APTT ABG pH ABG pO2 ABG HCO3 ABG O2 Saturation ABG Base Excess ABG Hemoglobin Oxyhemoglobin Sodium 147 H Potassium 3.5 L D Chloride 111.2 H Carbon Dioxide 19 L BUN 29 H Creatinine Glucose 126 H POC Glucose 154 H 144 H Lactic Acid Calcium Ionized Calcium Phosphorus Magnesium Total Bilirubin AST ALT Alkaline Phosphatase Ammonia Total Creatine Kinase CK-MB (CK-2) CK-MB (CK-2) Rel Index Total Protein Albumin Urine WBC (Auto) Vancomycin Trough Salicylates Acetaminophen Plasma/Serum Alcohol Crossmatch 12/16/19 12/16/19 12/16/19 00:22 05:30 05:44 WBC 30.8 H RBC 2.58 L Hgb 7.1 L Hct 22.7 L MCH RDW 19.6 H Plt Count 451 H Lymph % (Auto) Arthur % (Auto) Arthur # Seg Neutrophils % Seg Neuts % (Manual) Lymphocytes % (Manual) Seg Neutrophils # Seg Neutrophils # Man Lymphocytes # (Manual) Monocytes # (Manual) Eosinophils # (Manual) Basophils # (Manual) PT INR APTT ABG pH ABG pO2 ABG HCO3 ABG O2 Saturation ABG Base Excess ABG Hemoglobin Oxyhemoglobin Sodium Potassium Chloride Carbon Dioxide BUN Creatinine Glucose POC Glucose 139 H 126 H Lactic Acid Calcium Ionized Calcium Phosphorus Magnesium Total Bilirubin AST ALT Alkaline Phosphatase Ammonia Total Creatine Kinase CK-MB (CK-2) CK-MB (CK-2) Rel Index Total Protein Albumin Urine WBC (Auto) Vancomycin Trough Salicylates Acetaminophen Plasma/Serum Alcohol Crossmatch 12/16/19 12/16/19 12/16/19 05:44 11:48 17:37 WBC RBC Hgb Hct MCH RDW Plt Count Lymph % (Auto) Arthur % (Auto) Arthur # Seg Neutrophils % Seg Neuts % (Manual) Lymphocytes % (Manual) Seg Neutrophils # Seg Neutrophils # Man Lymphocytes # (Manual) Monocytes # (Manual) Eosinophils # (Manual) Basophils # (Manual) PT INR APTT ABG pH ABG pO2 ABG HCO3 ABG O2 Saturation ABG Base Excess ABG Hemoglobin Oxyhemoglobin Sodium Potassium 3.4 L Chloride 109.2 H Carbon Dioxide 19 L BUN 27 H Creatinine Glucose 124 H POC Glucose 125 H 148 H Lactic Acid Calcium Ionized Calcium Phosphorus Magnesium Total Bilirubin AST ALT Alkaline Phosphatase Ammonia Total Creatine Kinase CK-MB (CK-2) CK-MB (CK-2) Rel Index Total Protein Albumin Urine WBC (Auto) Vancomycin Trough Salicylates Acetaminophen Plasma/Serum Alcohol Crossmatch 12/16/19 12/17/19 12/17/19 23:43 05:28 12:47 WBC RBC Hgb Hct MCH RDW Plt Count Lymph % (Auto) Arthur % (Auto) Arthur # Seg Neutrophils % Seg Neuts % (Manual) Lymphocytes % (Manual) Seg Neutrophils # Seg Neutrophils # Man Lymphocytes # (Manual) Monocytes # (Manual) Eosinophils # (Manual) Basophils # (Manual) PT INR APTT ABG pH ABG pO2 ABG HCO3 ABG O2 Saturation ABG Base Excess ABG Hemoglobin Oxyhemoglobin Sodium Potassium Chloride Carbon Dioxide BUN Creatinine Glucose POC Glucose 142 H 140 H 125 H Lactic Acid Calcium Ionized Calcium Phosphorus Magnesium Total Bilirubin AST ALT Alkaline Phosphatase Ammonia Total Creatine Kinase CK-MB (CK-2) CK-MB (CK-2) Rel Index Total Protein Albumin Urine WBC (Auto) Vancomycin Trough Salicylates Acetaminophen Plasma/Serum Alcohol Crossmatch 12/17/19 12/17/19 12/17/19 17:05 18:00 Unknown WBC RBC Hgb Hct MCH RDW Plt Count Lymph % (Auto) Arthur % (Auto) Arthur # Seg Neutrophils % Seg Neuts % (Manual) Lymphocytes % (Manual) Seg Neutrophils # Seg Neutrophils # Man Lymphocytes # (Manual) Monocytes # (Manual) Eosinophils # (Manual) Basophils # (Manual) PT INR APTT ABG pH ABG pO2 68.1 L ABG HCO3 ABG O2 Saturation 93.7 L ABG Base Excess ABG Hemoglobin 5.0 L Oxyhemoglobin 91.7 L Sodium Potassium Chloride Carbon Dioxide BUN Creatinine Glucose POC Glucose 140 H Lactic Acid Calcium Ionized Calcium Phosphorus Magnesium Total Bilirubin AST ALT Alkaline Phosphatase Ammonia Total Creatine Kinase CK-MB (CK-2) CK-MB (CK-2) Rel Index Total Protein Albumin Urine WBC (Auto) Vancomycin Trough Salicylates Acetaminophen Plasma/Serum Alcohol Crossmatch 12/18/19 12/18/19 12/18/19 00:16 04:53 04:53 WBC 28.6 H RBC 2.27 L Hgb 6.3 L Hct 19.5 L* MCH RDW 20.0 H Plt Count 497 H Lymph % (Auto) Arthur % (Auto) Arthur # Seg Neutrophils % Seg Neuts % (Manual) Lymphocytes % (Manual) Seg Neutrophils # Seg Neutrophils # Man Lymphocytes # (Manual) Monocytes # (Manual) Eosinophils # (Manual) Basophils # (Manual) PT INR APTT ABG pH ABG pO2 ABG HCO3 ABG O2 Saturation ABG Base Excess ABG Hemoglobin Oxyhemoglobin Sodium Potassium Chloride 107.9 H Carbon Dioxide 20 L BUN 27 H Creatinine 0.6 L Glucose 116 H POC Glucose 123 H Lactic Acid Calcium Ionized Calcium Phosphorus Magnesium Total Bilirubin AST ALT Alkaline Phosphatase Ammonia Total Creatine Kinase CK-MB (CK-2) CK-MB (CK-2) Rel Index Total Protein Albumin Urine WBC (Auto) Vancomycin Trough Salicylates Acetaminophen Plasma/Serum Alcohol Crossmatch 12/18/19 12/18/19 12/18/19 06:38 11:22 12:08 WBC RBC Hgb Hct MCH RDW Plt Count Lymph % (Auto) Arthur % (Auto) Arthur # Seg Neutrophils % Seg Neuts % (Manual) Lymphocytes % (Manual) Seg Neutrophils # Seg Neutrophils # Man Lymphocytes # (Manual) Monocytes # (Manual) Eosinophils # (Manual) Basophils # (Manual) PT INR APTT ABG pH ABG pO2 ABG HCO3 ABG O2 Saturation ABG Base Excess ABG Hemoglobin Oxyhemoglobin Sodium Potassium Chloride Carbon Dioxide BUN Creatinine Glucose POC Glucose 120 H 127 H Lactic Acid Calcium Ionized Calcium Phosphorus Magnesium Total Bilirubin AST ALT Alkaline Phosphatase Ammonia Total Creatine Kinase CK-MB (CK-2) CK-MB (CK-2) Rel Index Total Protein Albumin Urine WBC (Auto) Vancomycin Trough Salicylates Acetaminophen Plasma/Serum Alcohol Crossmatch See Detail 12/18/19 12/18/19 12/18/19 14:05 17:49 23:53 WBC RBC Hgb Hct MCH RDW Plt Count Lymph % (Auto) Arthur % (Auto) Arthur # Seg Neutrophils % Seg Neuts % (Manual) Lymphocytes % (Manual) Seg Neutrophils # Seg Neutrophils # Man Lymphocytes # (Manual) Monocytes # (Manual) Eosinophils # (Manual) Basophils # (Manual) PT INR APTT ABG pH 7.267 L ABG pO2 69.8 L ABG HCO3 ABG O2 Saturation 88.4 L ABG Base Excess ABG Hemoglobin 7.1 L Oxyhemoglobin 86.4 L Sodium Potassium Chloride Carbon Dioxide BUN Creatinine Glucose POC Glucose 157 H 128 H Lactic Acid Calcium Ionized Calcium Phosphorus Magnesium Total Bilirubin AST ALT Alkaline Phosphatase Ammonia Total Creatine Kinase CK-MB (CK-2) CK-MB (CK-2) Rel Index Total Protein Albumin Urine WBC (Auto) Vancomycin Trough Salicylates Acetaminophen Plasma/Serum Alcohol Crossmatch 12/19/19 12/19/19 12/19/19 03:37 03:37 05:25 WBC 31.3 H RBC 2.60 L Hgb 7.6 L Hct 23.0 L MCH RDW 19.4 H Plt Count 530 H Lymph % (Auto) Arthur % (Auto) Arthur # Seg Neutrophils % Seg Neuts % (Manual) Lymphocytes % (Manual) Seg Neutrophils # Seg Neutrophils # Man Lymphocytes # (Manual) Monocytes # (Manual) Eosinophils # (Manual) Basophils # (Manual) PT INR APTT ABG pH ABG pO2 ABG HCO3 ABG O2 Saturation ABG Base Excess ABG Hemoglobin Oxyhemoglobin Sodium Potassium Chloride Carbon Dioxide 18 L BUN 36 H Creatinine Glucose 111 H POC Glucose 123 H Lactic Acid Calcium Ionized Calcium Phosphorus Magnesium Total Bilirubin AST ALT Alkaline Phosphatase Ammonia Total Creatine Kinase CK-MB (CK-2) CK-MB (CK-2) Rel Index Total Protein Albumin Urine WBC (Auto) Vancomycin Trough Salicylates Acetaminophen Plasma/Serum Alcohol Crossmatch 12/19/19 12/19/19 12/20/19 12:59 18:33 00:00 WBC RBC Hgb Hct MCH RDW Plt Count Lymph % (Auto) Arthur % (Auto) Arthur # Seg Neutrophils % Seg Neuts % (Manual) Lymphocytes % (Manual) Seg Neutrophils # Seg Neutrophils # Man Lymphocytes # (Manual) Monocytes # (Manual) Eosinophils # (Manual) Basophils # (Manual) PT INR APTT ABG pH ABG pO2 ABG HCO3 ABG O2 Saturation ABG Base Excess ABG Hemoglobin Oxyhemoglobin Sodium Potassium Chloride Carbon Dioxide BUN Creatinine Glucose POC Glucose 130 H 118 H 135 H Lactic Acid Calcium Ionized Calcium Phosphorus Magnesium Total Bilirubin AST ALT Alkaline Phosphatase Ammonia Total Creatine Kinase CK-MB (CK-2) CK-MB (CK-2) Rel Index Total Protein Albumin Urine WBC (Auto) Vancomycin Trough Salicylates Acetaminophen Plasma/Serum Alcohol Crossmatch 12/20/19 12/20/19 12/20/19 05:46 12:31 18:07 WBC RBC Hgb Hct MCH RDW Plt Count Lymph % (Auto) Arthur % (Auto) Arthur # Seg Neutrophils % Seg Neuts % (Manual) Lymphocytes % (Manual) Seg Neutrophils # Seg Neutrophils # Man Lymphocytes # (Manual) Monocytes # (Manual) Eosinophils # (Manual) Basophils # (Manual) PT INR APTT ABG pH ABG pO2 ABG HCO3 ABG O2 Saturation ABG Base Excess ABG Hemoglobin Oxyhemoglobin Sodium Potassium Chloride Carbon Dioxide BUN Creatinine Glucose POC Glucose 131 H 128 H 134 H Lactic Acid Calcium Ionized Calcium Phosphorus Magnesium Total Bilirubin AST ALT Alkaline Phosphatase Ammonia Total Creatine Kinase CK-MB (CK-2) CK-MB (CK-2) Rel Index Total Protein Albumin Urine WBC (Auto) Vancomycin Trough Salicylates Acetaminophen Plasma/Serum Alcohol Crossmatch 12/21/19 12/21/19 12/21/19 03:28 03:28 07:21 WBC 29.4 H RBC 2.30 L Hgb 6.8 L Hct 20.2 L MCH RDW 20.2 H Plt Count 746 H Lymph % (Auto) Arthur % (Auto) Arthur # Seg Neutrophils % Seg Neuts % (Manual) 85.0 H Lymphocytes % (Manual) 8.0 L Seg Neutrophils # Seg Neutrophils # Man 25.0 H Lymphocytes # (Manual) Monocytes # (Manual) 1.5 H Eosinophils # (Manual) 0.6 H Basophils # (Manual) PT INR APTT ABG pH ABG pO2 ABG HCO3 ABG O2 Saturation ABG Base Excess ABG Hemoglobin Oxyhemoglobin Sodium Potassium Chloride Carbon Dioxide 17 L BUN 57 H Creatinine 1.4 H D Glucose POC Glucose 124 H Lactic Acid Calcium Ionized Calcium Phosphorus Magnesium Total Bilirubin AST ALT Alkaline Phosphatase Ammonia Total Creatine Kinase CK-MB (CK-2) CK-MB (CK-2) Rel Index Total Protein Albumin Urine WBC (Auto) Vancomycin Trough Salicylates Acetaminophen Plasma/Serum Alcohol Crossmatch 12/21/19 12/21/19 12/21/19 08:56 12:06 14:53 WBC RBC Hgb 7.2 L Hct 22.9 L MCH RDW Plt Count Lymph % (Auto) Arthur % (Auto) Arthur # Seg Neutrophils % Seg Neuts % (Manual) Lymphocytes % (Manual) Seg Neutrophils # Seg Neutrophils # Man Lymphocytes # (Manual) Monocytes # (Manual) Eosinophils # (Manual) Basophils # (Manual) PT INR APTT ABG pH ABG pO2 ABG HCO3 ABG O2 Saturation ABG Base Excess ABG Hemoglobin Oxyhemoglobin Sodium Potassium Chloride Carbon Dioxide BUN Creatinine Glucose POC Glucose 116 H Lactic Acid Calcium Ionized Calcium Phosphorus Magnesium Total Bilirubin AST ALT Alkaline Phosphatase Ammonia Total Creatine Kinase CK-MB (CK-2) CK-MB (CK-2) Rel Index Total Protein Albumin Urine WBC (Auto) Vancomycin Trough 33.8 H Salicylates Acetaminophen Plasma/Serum Alcohol Crossmatch 12/21/19 12/21/19 12/21/19 14:54 17:27 23:49 WBC RBC Hgb Hct MCH RDW Plt Count Lymph % (Auto) Arthur % (Auto) Arthur # Seg Neutrophils % Seg Neuts % (Manual) Lymphocytes % (Manual) Seg Neutrophils # Seg Neutrophils # Man Lymphocytes # (Manual) Monocytes # (Manual) Eosinophils # (Manual) Basophils # (Manual) PT INR APTT ABG pH ABG pO2 ABG HCO3 ABG O2 Saturation ABG Base Excess ABG Hemoglobin Oxyhemoglobin Sodium Potassium Chloride Carbon Dioxide BUN Creatinine Glucose POC Glucose 145 H 127 H Lactic Acid Calcium Ionized Calcium Phosphorus Magnesium Total Bilirubin AST ALT Alkaline Phosphatase Ammonia Total Creatine Kinase CK-MB (CK-2) CK-MB (CK-2) Rel Index Total Protein Albumin Urine WBC (Auto) Vancomycin Trough Salicylates Acetaminophen Plasma/Serum Alcohol Crossmatch See Detail 12/22/19 12/22/19 12/22/19 04:43 05:56 08:40 WBC RBC Hgb Hct MCH RDW Plt Count Lymph % (Auto) Arthur % (Auto) Arthur # Seg Neutrophils % Seg Neuts % (Manual) Lymphocytes % (Manual) Seg Neutrophils # Seg Neutrophils # Man Lymphocytes # (Manual) Monocytes # (Manual) Eosinophils # (Manual) Basophils # (Manual) PT INR APTT ABG pH ABG pO2 75.6 L ABG HCO3 ABG O2 Saturation ABG Base Excess -2.6 L ABG Hemoglobin 6.8 L Oxyhemoglobin 94.6 L Sodium Potassium Chloride Carbon Dioxide 17 L BUN 60 H Creatinine 1.4 H Glucose 126 H POC Glucose 153 H Lactic Acid Calcium Ionized Calcium Phosphorus Magnesium Total Bilirubin AST ALT Alkaline Phosphatase Ammonia Total Creatine Kinase CK-MB (CK-2) CK-MB (CK-2) Rel Index Total Protein Albumin Urine WBC (Auto) Vancomycin Trough Salicylates Acetaminophen Plasma/Serum Alcohol Crossmatch 12/22/19 12:07 WBC RBC Hgb Hct MCH RDW Plt Count Lymph % (Auto) Arthur % (Auto) Arthur # Seg Neutrophils % Seg Neuts % (Manual) Lymphocytes % (Manual) Seg Neutrophils # Seg Neutrophils # Man Lymphocytes # (Manual) Monocytes # (Manual) Eosinophils # (Manual) Basophils # (Manual) PT INR APTT ABG pH ABG pO2 ABG HCO3 ABG O2 Saturation ABG Base Excess ABG Hemoglobin Oxyhemoglobin Sodium Potassium Chloride Carbon Dioxide BUN Creatinine Glucose POC Glucose 140 H Lactic Acid Calcium Ionized Calcium Phosphorus Magnesium Total Bilirubin AST ALT Alkaline Phosphatase Ammonia Total Creatine Kinase CK-MB (CK-2) CK-MB (CK-2) Rel Index Total Protein Albumin Urine WBC (Auto) Vancomycin Trough Salicylates Acetaminophen Plasma/Serum Alcohol Crossmatch Allied health notes reviewed: nursing
[2019-12-22] MEDS: QUEtiapine 100 MG TAB PO SCH (21:19)
[2019-12-23 05:12] LABS: Hematocrit 22.9 % (30.3-42.9); Hemoglobin 7.6 gm/dl (10.1-14.3); Mean Corpuscular HGB Conc 33 % (30-34); Mean Corpuscular Volume 86 fl (79-97); Platelet Count 998 K/mm3 (140-440); Red Blood Count 2.68 M/mm3 (3.65-5.03); Red Cell Distribution Width 19.9 % (13.2-15.2)
[2019-12-23 05:31] LABS: Calcium 9.5 mg/dL (8.4-10.2)
[2019-12-23 06:27] LABS: Basophils % (Manual) 0 % (0.0-1.8); Total Cells Counted 100
[2019-12-23 06:28] LABS: Anisocytosis 1+; Hypochromasia 1+
[2019-12-23 06:29] LABS: Platelet Estimate Consistent w Auto
[2019-12-23] MEDS: chlordiazePOXIDE 25 MG CAP PO SCH ×2 (06:37→21:09)
--- NOTE | 2019-12-23 07:10 | XRay Report ---
CHEST 1 VIEW INDICATION / CLINICAL INFORMATION: Pneumonia. COMPARISON: 12/16/2019 FINDINGS: SUPPORT DEVICES: Tracheostomy remains in place. HEART / MEDIASTINUM: No significant abnormality. LUNGS / PLEURA: Airspace disease in the left lower lobe continues to improve. No pneumothorax. ADDITIONAL FINDINGS: No significant additional findings. IMPRESSION: 1. Improving left lower lobe airspace opacity. Signer Name: Taiwo Flores MD Signed: 12/23/2019 7:06 AM Workstation Name: [id number]
[2019-12-23] MEDS: hydrOXYzine PAMOATE 25 MG CAP PO SCH ×2 (09:23→21:09)
[2019-12-23] MEDS: LACTULOSE 20 GM/30 ML ORAL LIQD PO SCH ×2 (09:23→21:08)
[2019-12-23] MEDS: SERTRALINE 25 MG TAB PO SCH (09:24)
[2019-12-23] MEDS: MIRTAZAPINE 30 MG TAB PO SCH (09:24)
[2019-12-23] MEDS: LANSOPRAZOLE 30 MG SOLUTAB FEEDTUBE SCH (09:24)
[2019-12-23] MEDS: levETIRAcetam 500 MG/5 ML ORAL LIQD PO SCH ×2 (09:24→21:09)
[2019-12-23] MEDS: QUEtiapine 200 MG TAB PO SCH (09:24)
[2019-12-23] MEDS: SENNOSIDES/DOCUSATE SODIUM 8.6/50 MG TAB PO SCH ×2 (10:00→21:09)
[2019-12-23] MEDS: TAMSULOSIN 0.4 MG CAP PO SCH (10:30)
--- NOTE | 2019-12-23 12:17 | Progress Note ---
Assessment and Plan /Anemia, microcytic -Continue to hold heparin, transfused 2 units of packed RBC -ordered stool for occult blood - pending /Acute metabolic encephalopathy/toxic encephalopathy due to the above - cont supportive care / Anoxic brain injury: suspected CT head: No acute abnormality. neurology consult placed, EEG ordered showed Generalized slowing. No seizures or epileptiform activity. Per neurology : Patient found to have intact corneal/VOR/cough reflexes, and is withdrawing lower extremities, therefore patient is not found to be brain . However, given that patient had an out of hospital cardiac arrest, the time of which is uncertain, the likelihood of meaningful neurological recovery is somewhat low. /Acute Respiratory failure -s/p intubation, s/p trach and PEG on 12/12 with mechanical ventilation - CTA was done and negative for PE, - Echo quality is poor, showed diastolic dysfunction - continue ICU monitoring - wean OFF vent/O2 as tolerated /Hyperammonemia - likely from liver disease related to EtOH abuse - Patient had elevated ammonia level and treated with lactulose /Metabolic Acidosis -Alcohol ketoacidosis vs hypoprofusion -Continue to monitor /ELevated LFTs, stable now - due to ischemic hepatitis. /Leucocytosis with sepsis - Source MRSA bacteremia and MSSA pneumonia. UA showed pyuria. RUQ US showed no ascites. Completed 7 days of Ceftriaxone on 11/29/2019. - Repeat TTE negative for vegetation. cont abx vancomycin 1 gm IV q 12 hour total 2 week till 12/30/2019 /MSSA pneumonia: on vancomycin till 12/30/2019 /ALcohol USe Disorder - given ongoing Alcohol use almost daily, s/p IV Thiamine - monitor /Severe hypokalemia -Repleted /Seizure disorder: treat with Keppra /H. Influenzae, tracheobronchitis, treated with abx FUll code, family denies DNR Very poor prognosis The high probability of a clinically significant, sudden or life threatening deterioration of the [neurology,respiratory] system(s) required my full and direct attention, intervention and personal management. The aggregate critical care time was [32] minutes. This time is in addition to time spent performing reported procedures but includes the following: [x] Data Review and interpretation [x] Patient assessment and monitoring of vital signs [x] Documentation [x] Medication orders and management Disposition: prognosis very poor. Family wants full code. offered hospice but refused 12/17/19: Day 24 on MV, PEEP 6 FiO2 30%, trying to wean, held sq heparin due to drop in h/h and anemia, renewed restraints, fever appears to be due to worsening pneumonia, UA negative, pCXR Impression: Slight interval worsening of a consolidative opacity in the left mid to lower lung, worrisome for pneumonia in the appropriate clinical setting. Adjust Vancomycin dose continue cefepime with ID following. Swollen right arm with Venous doppler of right arm r/o DVT ordered but not done due to COVID-19, 12/18/19: hb 6.3, transfuse one unit PRBC 12/19/19 : H&H stable, continue to monitor clinical status at ICU 12/19: Continue to monitor at ICU, needs placement 12/20: Continue to monitor at ICU, wean off vent as tolerated, needs placement. called family- no one answered -left message 12/21: Continue to monitor at ICU, wean off vent as tolerated, needs placement. 12/22: Continue to monitor at ICU, wean off vent as tolerated, needs placement. Discussed with father about hospice - family decision pending Brief History: 54-year-old female with a past medical history of Hypertension, Depression, Tobacco use Disorder, Alcohol use Disorder as confirmed by Daughter and pt's mother presents to the hospital status post cardiac arrest at home. EMS found pt in [place]. They were unable to intubate patient with a ET tube because she was clenching down therefore Joe airway placed. Per the ED physician who evaluated pt, Patient presented with a pulse, intermittent respirations, and bagging support via Joe airway with O2 sat of 100%. Accu-Chek of 71 obtained by EMS. She was intubated in the ER and called for admission. Following admission patient was diagnosed with anoxic brain injury, sepsis with MRSA bacteremia and MSSA pneumonia, alcoholic liver disease. Family member wished for full code, patient currently getting treated with IV antibiotics for sepsis, status post trach and PEG on 12/13/19. Subjective Date of service: 12/23/19 Principal diagnosis: Ac cardiopulmonary arrest; Ac hypoxemic resp failure; Acute encephalopathy Interval history: Patient seen and examined remained on mechanical ventilation with trach, unresponsive, no clinical change family wants to continue full code Discussed with RN at bedside, discussed with case management coordinator for disposition planning Tolerating tube feeding with PEG tube, needs placement - uninsured Objective - Exam Narrative Exam: General appearance: Present: other (on vent comatose, elderly female) - EENT Eyes: no scleral icterus, no conjunctival injection, pupil not reactive ENT: clear oral mucosa, dentition normal, no oropharyngeal erythema Ears: bilateral: normal - Neck Neck: trach on place - Respiratory Respiratory effort: other (on vent) Respiratory: bilateral: rales - Cardiovascular Rhythm: regular Heart Sounds: Present: S1 & S2. Absent: gallop, rub Extremities: pulses intact, No edema, normal color - Gastrointestinal General gastrointestinal: Present: soft, non-tender, non-distended, normal bowel sounds - Integumentary Integumentary: clear, warm, dry - Musculoskeletal Musculoskeletal: does not respond to commend - Neurologic Neurologic: other (intubated with trach and 2+ reflexes throughout) - Psychiatric Psychiatric: no appropriate mood/affect, no intact judgment & insight, no memory intact - Constitutional Vitals: Vital Signs - 12hr 12/23/19 12/23/19 12/23/19 00:30 00:45 01:00 Temperature Pulse Rate 114 H 116 H 118 H Pulse Rate [ From Monitor] Respiratory 28 H 28 H 28 H Rate Blood Pressure 120/69 113/68 117/69 O2 Sat by Pulse 97 97 97 Oximetry O2 Sat by Pulse Oximetry [ Assessment] 12/23/19 12/23/19 12/23/19 01:15 01:30 01:45 Temperature Pulse Rate 118 H 117 H 117 H Pulse Rate [ From Monitor] Respiratory 28 H 28 H 28 H Rate Blood Pressure 112/68 112/70 112/69 O2 Sat by Pulse 96 95 95 Oximetry O2 Sat by Pulse Oximetry [ Assessment] 12/23/19 12/23/19 12/23/19 02:00 02:15 02:30 Temperature Pulse Rate 114 H 114 H 114 H Pulse Rate [ From Monitor] Respiratory 28 H 28 H 28 H Rate Blood Pressure 114/69 113/69 111/67 O2 Sat by Pulse 95 95 95 Oximetry O2 Sat by Pulse Oximetry [ Assessment] 12/23/19 12/23/19 12/23/19 02:45 03:00 03:15 Temperature Pulse Rate 113 H 112 H 114 H Pulse Rate [ From Monitor] Respiratory 28 H 28 H 28 H Rate Blood Pressure 119/69 124/77 119/73 O2 Sat by Pulse 96 97 96 Oximetry O2 Sat by Pulse Oximetry [ Assessment] 0412/23/19 12/23/19 03:30 03:45 04:00 Temperature Pulse Rate 114 H 115 H 115 H Pulse Rate [ 115 H From Monitor] Respiratory 28 H 28 H 28 H Rate Blood Pressure 117/71 114/70 118/69 O2 Sat by Pulse 96 96 100 Oximetry O2 Sat by Pulse Oximetry [ Assessment] 12/23/19 12/23/19 12/23/19 04:15 04:30 04:42 Temperature Pulse Rate 117 H 116 H 117 H Pulse Rate [ From Monitor] Respiratory 28 H 28 H Rate Blood Pressure 119/75 126/76 126/76 O2 Sat by Pulse 95 95 96 Oximetry O2 Sat by Pulse Oximetry [ Assessment] 12/23/19 12/23/19 12/23/19 04:45 05:00 05:15 Temperature Pulse Rate 114 H 116 H 113 H Pulse Rate [ From Monitor] Respiratory 27 H 28 H 28 H Rate Blood Pressure 123/76 120/76 119/74 O2 Sat by Pulse 95 94 95 Oximetry O2 Sat by Pulse Oximetry [ Assessment] 12/23/19 12/23/19 12/23/19 05:30 05:45 06:00 Temperature Pulse Rate 119 H 118 H 119 H Pulse Rate [ From Monitor] Respiratory 28 H 28 H 28 H Rate Blood Pressure 123/77 123/79 127/76 O2 Sat by Pulse 95 96 96 Oximetry O2 Sat by Pulse Oximetry [ Assessment] 12/23/19 12/23/19 12/23/19 06:15 06:30 06:45 Temperature Pulse Rate 118 H 119 H 118 H Pulse Rate [ From Monitor] Respiratory 28 H 28 H 28 H Rate Blood Pressure 125/79 132/78 130/78 O2 Sat by Pulse 96 96 96 Oximetry O2 Sat by Pulse Oximetry [ Assessment] 12/23/19 12/23/19 12/23/19 07:00 07:15 07:30 Temperature Pulse Rate 118 H 118 H 114 H Pulse Rate [ From Monitor] Respiratory 28 H 28 H 28 H Rate Blood Pressure 128/80 123/75 122/73 O2 Sat by Pulse 95 96 95 Oximetry O2 Sat by Pulse Oximetry [ Assessment] 12/23/19 12/23/19 12/23/19 07:45 08:00 08:15 Temperature 98.7 F Pulse Rate 117 H 119 H 118 H Pulse Rate [ 132 H From Monitor] Respiratory 28 H 28 H 28 H Rate Blood Pressure 118/75 121/76 122/75 O2 Sat by Pulse 95 100 94 Oximetry O2 Sat by Pulse Oximetry [ Assessment] 12/23/19 12/23/19 12/23/19 08:26 08:30 08:32 Temperature Pulse Rate 119 H 120 H Pulse Rate [ From Monitor] Respiratory 26 H Rate Blood Pressure 122/75 129/78 O2 Sat by Pulse 30 L 96 Oximetry O2 Sat by Pulse 96 Oximetry [ Assessment] 12/23/19 12/23/19 12/23/19 08:45 09:00 09:15 Temperature Pulse Rate 119 H 123 H 125 H Pulse Rate [ From Monitor] Respiratory 27 H 27 H 27 H Rate Blood Pressure 134/83 139/85 138/85 O2 Sat by Pulse 97 98 98 Oximetry O2 Sat by Pulse Oximetry [ Assessment] 12/23/19 12/23/19 12/23/19 09:30 09:46 10:00 Temperature Pulse Rate 124 H 126 H 126 H Pulse Rate [ From Monitor] Respiratory 21 27 H 25 H Rate Blood Pressure 133/80 133/81 O2 Sat by Pulse 97 96 95 Oximetry O2 Sat by Pulse Oximetry [ Assessment] 12/23/19 12/23/19 12/23/19 10:15 10:30 10:45 Temperature Pulse Rate 131 H 131 H 131 H Pulse Rate [ From Monitor] Respiratory 29 H 29 H 29 H Rate Blood Pressure 136/83 134/84 133/83 O2 Sat by Pulse 95 95 95 Oximetry O2 Sat by Pulse Oximetry [ Assessment] 12/23/19 12/23/19 11:00 11:15 Temperature Pulse Rate 132 H 135 H Pulse Rate [ From Monitor] Respiratory 30 H 30 H Rate Blood Pressure 135/83 131/89 O2 Sat by Pulse 96 97 Oximetry O2 Sat by Pulse Oximetry [ Assessment] - Labs CBC & Chem 7: 12/23/19 04:30 12/23/19 04:30 Labs: Abnormal lab results 12/21/19 12/22/19 12/22/19 Range/Units 14:54 12:07 17:49 WBC (4.5-11.0) K/mm3 RBC (3.65-5.03) M/mm3 Hgb (10.1-14.3) gm/dl Hct (30.3-42.9) % RDW (13.2-15.2) % Plt Count (140-440) K/mm3 Seg Neuts % (Manual) (40.0-70.0) % Lymphocytes % (Manual) (13.4-35.0) % Monocytes % (Manual) (0.0-7.3) % Seg Neutrophils # Man (1.8-7.7) K/mm3 Lymphocytes # (Manual) (1.2-5.4) K/mm3 Monocytes # (Manual) (0.0-0.8) K/mm3 Potassium (3.6-5.0) mmol/L Carbon Dioxide (22-30) mmol/L BUN (7-17) mg/dL Creatinine (0.7-1.2) mg/dL Glucose (65-100) mg/dL POC Glucose 140 H 116 H (70-105) Crossmatch See Detail 12/23/19 12/23/19 Range/Units 04:30 04:30 WBC 22.4 H (4.5-11.0) K/mm3 RBC 2.68 L (3.65-5.03) M/mm3 Hgb 7.6 L (10.1-14.3) gm/dl Hct 22.9 L (30.3-42.9) % RDW 19.9 H (13.2-15.2) % Plt Count 998 H (140-440) K/mm3 Seg Neuts % (Manual) 88.0 H (40.0-70.0) % Lymphocytes % (Manual) 2.0 L (13.4-35.0) % Monocytes % (Manual) 9.0 H (0.0-7.3) % Seg Neutrophils # Man 19.7 H (1.8-7.7) K/mm3 Lymphocytes # (Manual) 0.4 L (1.2-5.4) K/mm3 Monocytes # (Manual) 2.0 H (0.0-0.8) K/mm3 Potassium 5.2 H (3.6-5.0) mmol/L Carbon Dioxide 21 L (22-30) mmol/L BUN 69 H (7-17) mg/dL Creatinine 1.5 H (0.7-1.2) mg/dL Glucose 117 H (65-100) mg/dL POC Glucose (70-105) Crossmatch
--- NOTE | 2019-12-23 15:54 | Progress Note ---
Assessment and Plan Acute cardiopulmonary arrest with ROSC Acute hypoxemic respiratory failure on MVS Acute metabolic-toxic encephalopathy Metabolic acidosis/alcoholic acidosis/Lactic acidosis Ischemic hepatitis Leucocytosis with lactic acidosis Tobacco use disorder ALcohol use Disorder Hypokalemia High grade fevers - repeat CXR reviewed - continue Seroquel to see if aqids weaning as ventiolation is adequate and per haps tachypnea on PSV mode has a neural component - continue Antibiotics per ID recommendations; de-escalate based on HILARIO /sensitivities / clinical progress - continue bronchodilators with routine trach care and pulmonary hygiene per RT - VAP bundle addressed (continue aspiration precautions, HOB > 40) - continue daily SAT's and assessment for readiness for SBT (For PSV trial today) - continue to rest on AC mode qhs - continue Seroquel for tentative delirium and to spare IV sedation - continue Librium at 75 mg po q8h - continue Reglan for G.I. motility - Continue Intermittent sedation until patient's neurologic state can be better evaluated - Continue VTE and Stress ulcer prophylaxis - Continue enteric nutritional support. Monitor glycemic control, with target blood glucose 140-180 mg/dL while critically ill (Avoid hypoglycemia) - Continue to wean supplemental oxygen for target O2 sat's > 90% - ABG and CXR prn - Continue to avoid nephrotoxins, adjust all medications fro GFR and CrCL - Continue to avoid benzodiazepines , as much as possible, to reduce the possibility of delirium - Continue prn analgesia per CPOT score - Continue to maintain of sleep-wake cycle, avoid delirium - PT/OT/ROM exercises- awaiting PT/OT evaluation - Continue mobility protocol and skin assessment per protocol for pressure ulcer prevention - Continue to monitor for clinical seizures - Continue Nicotine withdrawal precautions, alcohol withdrawal precautions - continue other care per attending / other consultants ..... re-evaluate in am & prn CONDITION: CRITICAL PROGNOSIS: GUARDED CODE STATUS: FULL CODE The high probability of a clinically significant, sudden or life-threatening deterioration of the [respiratory, cardiovascular & neurologic] system(s) required my full and direct attention, intervention and personal management. The aggregate critical care time was [32] minutes without overlap. Time includes spent on; [x] Data Review and interpretation [x] Patient assessment and monitoring of vital signs [x] Documentation [x] Medication orders and management Subjective Date of service: 12/23/19 Principal diagnosis: Ac cardiopulmonary arrest; Ac hypoxemic resp failure; Acute encephalopathy Interval history: Patient is seen today for: Acute cardiopulmonary arrest with ROSC; Acute hypoxemic respiratory failure; Acute metabolic-toxic encephalopathy; Ischemic hepatitis; Leucocytosis with lactic acidosis; Tobacco use disorder; Alcohol use Disorder; Hypokalemia; High grade fevers Seen and examined at bedside; 24hour events reviewed; nursing and respiratory care staff consulted; no adverse overnight events reported to me; resting peacefully in bed; AMS is persistent; still not tolerating weaning well due to agitation and increased work of breathing PUI?: No COVID19: Negative Objective Vital Signs - 12hr 12/23/19 12/23/19 12/23/19 04:00 04:15 04:30 Temperature Pulse Rate 115 H 117 H 116 H Pulse Rate [ 115 H From Monitor] Respiratory 28 H 28 H 28 H Rate Blood Pressure 118/69 119/75 126/76 O2 Sat by Pulse 100 95 95 Oximetry O2 Sat by Pulse Oximetry [ Assessment] 12/23/19 12/23/19 12/23/19 04:42 04:45 05:00 Temperature Pulse Rate 117 H 114 H 116 H Pulse Rate [ From Monitor] Respiratory 27 H 28 H Rate Blood Pressure 126/76 123/76 120/76 O2 Sat by Pulse 96 95 94 Oximetry O2 Sat by Pulse Oximetry [ Assessment] 12/23/19 12/23/19 12/23/19 05:15 05:30 05:45 Temperature Pulse Rate 113 H 119 H 118 H Pulse Rate [ From Monitor] Respiratory 28 H 28 H 28 H Rate Blood Pressure 119/74 123/77 123/79 O2 Sat by Pulse 95 95 96 Oximetry O2 Sat by Pulse Oximetry [ Assessment] 12/23/19 12/23/19 12/23/19 06:00 06:15 06:30 Temperature Pulse Rate 119 H 118 H 119 H Pulse Rate [ From Monitor] Respiratory 28 H 28 H 28 H Rate Blood Pressure 127/76 125/79 132/78 O2 Sat by Pulse 96 96 96 Oximetry O2 Sat by Pulse Oximetry [ Assessment] 12/23/19 12/23/19 12/23/19 06:45 07:00 07:15 Temperature Pulse Rate 118 H 118 H 118 H Pulse Rate [ From Monitor] Respiratory 28 H 28 H 28 H Rate Blood Pressure 130/78 128/80 123/75 O2 Sat by Pulse 96 95 96 Oximetry O2 Sat by Pulse Oximetry [ Assessment] 12/23/19 12/23/19 12/23/19 07:30 07:45 08:00 Temperature 98.7 F Pulse Rate 114 H 117 H 119 H Pulse Rate [ 119 H From Monitor] Respiratory 28 H 28 H 28 H Rate Blood Pressure 122/73 118/75 121/76 O2 Sat by Pulse 95 95 100 Oximetry O2 Sat by Pulse Oximetry [ Assessment] 12/23/19 12/23/19 12/23/19 08:15 08:26 08:30 Temperature Pulse Rate 118 H 119 H 120 H Pulse Rate [ From Monitor] Respiratory 28 H 26 H Rate Blood Pressure 122/75 122/75 129/78 O2 Sat by Pulse 94 30 L 96 Oximetry O2 Sat by Pulse Oximetry [ Assessment] 12/23/19 12/23/19 12/23/19 08:32 08:45 09:00 Temperature Pulse Rate 119 H 123 H Pulse Rate [ From Monitor] Respiratory 27 H 27 H Rate Blood Pressure 134/83 139/85 O2 Sat by Pulse 97 98 Oximetry O2 Sat by Pulse 96 Oximetry [ Assessment] 12/23/19 12/23/19 12/23/19 09:15 09:30 09:46 Temperature Pulse Rate 125 H 124 H 126 H Pulse Rate [ From Monitor] Respiratory 27 H 21 27 H Rate Blood Pressure 138/85 133/80 O2 Sat by Pulse 98 97 96 Oximetry O2 Sat by Pulse Oximetry [ Assessment] 12/23/19 12/23/19 12/23/19 10:00 10:15 10:30 Temperature Pulse Rate 126 H 131 H 131 H Pulse Rate [ From Monitor] Respiratory 25 H 29 H 29 H Rate Blood Pressure 133/81 136/83 134/84 O2 Sat by Pulse 95 95 95 Oximetry O2 Sat by Pulse Oximetry [ Assessment] 12/23/19 12/23/19 12/23/19 10:45 11:00 11:15 Temperature Pulse Rate 131 H 132 H 135 H Pulse Rate [ From Monitor] Respiratory 29 H 30 H 30 H Rate Blood Pressure 133/83 135/83 131/89 O2 Sat by Pulse 95 96 97 Oximetry O2 Sat by Pulse Oximetry [ Assessment] 12/23/19 12/23/19 12/23/19 11:30 11:45 12:00 Temperature 98.5 F Pulse Rate 133 H 129 H 131 H Pulse Rate [ 132 H From Monitor] Respiratory 26 H 26 H 30 H Rate Blood Pressure 131/83 128/81 137/86 O2 Sat by Pulse 96 96 93 Oximetry O2 Sat by Pulse Oximetry [ Assessment] 12/23/19 12/23/19 12/23/19 12:15 12:30 12:45 Temperature Pulse Rate 131 H 127 H 131 H Pulse Rate [ From Monitor] Respiratory 28 H 27 H 27 H Rate Blood Pressure 139/86 133/84 138/93 O2 Sat by Pulse 94 97 96 Oximetry O2 Sat by Pulse Oximetry [ Assessment] 12/23/19 12/23/19 12/23/19 13:00 13:15 13:30 Temperature Pulse Rate 129 H 128 H 129 H Pulse Rate [ From Monitor] Respiratory 27 H 26 H 27 H Rate Blood Pressure 146/88 138/87 138/93 O2 Sat by Pulse 97 96 96 Oximetry O2 Sat by Pulse Oximetry [ Assessment] 12/23/19 13:46 Temperature Pulse Rate 128 H Pulse Rate [ From Monitor] Respiratory 27 H Rate Blood Pressure 131/89 O2 Sat by Pulse 97 Oximetry O2 Sat by Pulse Oximetry [ Assessment] Constitutional: appears uncomfortable, other (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, with midline tracheostomy and mild dys-synchrony) Eyes: non-icteric ENT: oropharynx moist, other (s/p trach) Neck: supple, no lymphadenopathy, no JVD Effort: mildly labored Ascultation: Bilateral: diminished breath sounds, rhonchi Percussion: Bilateral: not dull Cardiovascular: regular rate and rhythm (tachycardia), other (S1,S2) Gastrointestinal: normoactive bowel sounds, soft, non-tender, non-distended Integumentary: normal Extremities: no cyanosis, no edema, pulses normal, no ischemia or petechiae Neurologic: unable to assess, other (awake but not tracking voice ) Psychiatric: other (Psychiatric: Unable to assess) CBC and BMP: 12/27/19 03:42 12/27/19 03:42 ABG, PT/INR, D-dimer: ABG ABG pH 7.389 pH Units (7.350-7.450) 12/22/19 08:40 ABG pCO2 37.5 mm Hg 12/22/19 08:40 ABG pO2 75.6 mm Hg (80.0-90.0) L 12/22/19 08:40 ABG O2 Saturation 96.7 % (95.0-99.0) 12/22/19 08:40 PT/INR, D-dimer PT 17.0 Sec. (12.2-14.9) H 11/23/19 03:47 INR 1.36 (0.87-1.13) H 11/23/19 03:47 Abnormal lab findings: Abnormal Labs 11/22/19 11/22/19 11/22/19 23:17 23:18 23:27 WBC 21.2 H RBC 3.59 L Hgb 9.8 L Hct MCH 27 L RDW 18.6 H Plt Count 454 H Lymph % (Auto) [place] % (Auto) [place] # Seg Neutrophils % Seg Neuts % (Manual) 86.0 H Lymphocytes % (Manual) 9.0 L Monocytes % (Manual) Seg Neutrophils # Seg Neutrophils # Man 18.2 H Lymphocytes # (Manual) Monocytes # (Manual) 1.1 H Eosinophils # (Manual) Basophils # (Manual) PT INR APTT ABG pH ABG pO2 ABG HCO3 ABG O2 Saturation ABG Base Excess ABG Hemoglobin Oxyhemoglobin Sodium Potassium Chloride Carbon Dioxide BUN Creatinine Glucose POC Glucose 53 L Lactic Acid Calcium Ionized Calcium Phosphorus Magnesium Total Bilirubin AST ALT Alkaline Phosphatase Ammonia Total Creatine Kinase CK-MB (CK-2) CK-MB (CK-2) Rel Index Total Protein Albumin Urine WBC (Auto) 40.0 H Vancomycin Trough Salicylates Acetaminophen Plasma/Serum Alcohol Crossmatch 11/22/19 11/22/19 11/22/19 23:27 23:27 23:27 WBC RBC Hgb Hct MCH RDW Plt Count Lymph % (Auto) [place] % (Auto) [place] # Seg Neutrophils % Seg Neuts % (Manual) Lymphocytes % (Manual) Monocytes % (Manual) Seg Neutrophils # Seg Neutrophils # Man Lymphocytes # (Manual) Monocytes # (Manual) Eosinophils # (Manual) Basophils # (Manual) PT INR APTT ABG pH ABG pO2 ABG HCO3 ABG O2 Saturation ABG Base Excess ABG Hemoglobin Oxyhemoglobin Sodium Potassium 2.4 L* Chloride 85.1 L Carbon Dioxide 19 L BUN Creatinine 0.5 L Glucose 261 H POC Glucose Lactic Acid Calcium Ionized Calcium Phosphorus Magnesium Total Bilirubin AST 609 H ALT 152 H Alkaline Phosphatase 160 H Ammonia 117.0 H Total Creatine Kinase 139 H CK-MB (CK-2) 8.3 H CK-MB (CK-2) Rel Index 5.9 H Total Protein Albumin 3.6 L Urine WBC (Auto) Vancomycin Trough Salicylates < 0.3 L Acetaminophen Plasma/Serum Alcohol Crossmatch 11/22/19 11/22/19 11/23/19 23:27 23:27 01:10 WBC RBC Hgb Hct MCH RDW Plt Count Lymph % (Auto) [place] % (Auto) [place] # Seg Neutrophils % Seg Neuts % (Manual) Lymphocytes % (Manual) Monocytes % (Manual) Seg Neutrophils # Seg Neutrophils # Man Lymphocytes # (Manual) Monocytes # (Manual) Eosinophils # (Manual) Basophils # (Manual) PT INR APTT ABG pH 7.273 L ABG pO2 209.7 H ABG HCO3 ABG O2 Saturation 99.2 H ABG Base Excess -3.9 L ABG Hemoglobin 10.6 L Oxyhemoglobin 93.9 L Sodium Potassium Chloride Carbon Dioxide BUN Creatinine Glucose POC Glucose Lactic Acid Calcium Ionized Calcium Phosphorus Magnesium Total Bilirubin AST ALT Alkaline Phosphatase Ammonia Total Creatine Kinase CK-MB (CK-2) CK-MB (CK-2) Rel Index Total Protein Albumin Urine WBC (Auto) Vancomycin Trough Salicylates Acetaminophen < 5.0 L Plasma/Serum Alcohol 0.08 H Crossmatch 11/23/19 11/23/19 11/23/19 01:19 01:19 03:47 WBC RBC Hgb Hct MCH RDW Plt Count Lymph % (Auto) [place] % (Auto) [place] # Seg Neutrophils % Seg Neuts % (Manual) Lymphocytes % (Manual) Monocytes % (Manual) Seg Neutrophils # Seg Neutrophils # Man Lymphocytes # (Manual) Monocytes # (Manual) Eosinophils # (Manual) Basophils # (Manual) PT 16.3 H INR 1.29 H APTT ABG pH ABG pO2 ABG HCO3 ABG O2 Saturation ABG Base Excess ABG Hemoglobin Oxyhemoglobin Sodium Potassium Chloride Carbon Dioxide BUN Creatinine Glucose POC Glucose Lactic Acid 2.10 H* 5.00 H* Calcium Ionized Calcium Phosphorus Magnesium Total Bilirubin AST ALT Alkaline Phosphatase Ammonia Total Creatine Kinase CK-MB (CK-2) CK-MB (CK-2) Rel Index Total Protein Albumin Urine WBC (Auto) Vancomycin Trough Salicylates Acetaminophen Plasma/Serum Alcohol Crossmatch 11/23/19 11/23/19 11/23/19 03:47 03:47 04:53 WBC RBC Hgb 9.4 L Hct MCH RDW Plt Count Lymph % (Auto) [place] % (Auto) [place] # Seg Neutrophils % Seg Neuts % (Manual) Lymphocytes % (Manual) Monocytes % (Manual) Seg Neutrophils # Seg Neutrophils # Man Lymphocytes # (Manual) Monocytes # (Manual) Eosinophils # (Manual) Basophils # (Manual) PT 17.0 H INR 1.36 H APTT 128.2 H* ABG pH ABG pO2 ABG HCO3 ABG O2 Saturation ABG Base Excess ABG Hemoglobin Oxyhemoglobin Sodium Potassium Chloride Carbon Dioxide 18 L BUN Creatinine 0.5 L Glucose 105 H POC Glucose Lactic Acid Calcium 8.3 L Ionized Calcium Phosphorus 2.40 L Magnesium Total Bilirubin 1.30 H AST 761 H ALT 158 H Alkaline Phosphatase 143 H Ammonia Total Creatine Kinase CK-MB (CK-2) CK-MB (CK-2) Rel Index Total Protein Albumin 2.8 L Urine WBC (Auto) Vancomycin Trough Salicylates Acetaminophen Plasma/Serum Alcohol Crossmatch 11/23/19 11/23/19 11/23/19 05:12 06:32 06:32 WBC 16.8 H RBC 3.31 L Hgb 8.9 L Hct 28.7 L MCH 27 L RDW 18.6 H Plt Count Lymph % (Auto) [place] % (Auto) [place] # Seg Neutrophils % Seg Neuts % (Manual) 94.0 H Lymphocytes % (Manual) 1.0 L Monocytes % (Manual) Seg Neutrophils # Seg Neutrophils # Man 15.8 H Lymphocytes # (Manual) 0.2 L Monocytes # (Manual) Eosinophils # (Manual) Basophils # (Manual) PT INR APTT ABG pH ABG pO2 ABG HCO3 ABG O2 Saturation ABG Base Excess -3.2 L ABG Hemoglobin 9.0 L Oxyhemoglobin 93.6 L Sodium Potassium Chloride Carbon Dioxide BUN Creatinine Glucose POC Glucose Lactic Acid Calcium Ionized Calcium 4.5 L Phosphorus Magnesium Total Bilirubin AST ALT Alkaline Phosphatase Ammonia Total Creatine Kinase CK-MB (CK-2) CK-MB (CK-2) Rel Index Total Protein Albumin Urine WBC (Auto) Vancomycin Trough Salicylates Acetaminophen Plasma/Serum Alcohol Crossmatch 11/23/19 11/24/19 11/24/19 06:32 04:35 04:35 WBC RBC Hgb Hct MCH RDW Plt Count Lymph % (Auto) [place] % (Auto) [place] # Seg Neutrophils % Seg Neuts % (Manual) Lymphocytes % (Manual) Monocytes % (Manual) Seg Neutrophils # Seg Neutrophils # Man Lymphocytes # (Manual) Monocytes # (Manual) Eosinophils # (Manual) Basophils # (Manual) PT INR APTT ABG pH ABG pO2 ABG HCO3 ABG O2 Saturation ABG Base Excess ABG Hemoglobin Oxyhemoglobin Sodium Potassium Chloride Carbon Dioxide BUN Creatinine Glucose POC Glucose Lactic Acid 3.30 H* Calcium Ionized Calcium Phosphorus Magnesium 1.40 L Total Bilirubin AST ALT Alkaline Phosphatase Ammonia 98.0 H Total Creatine Kinase CK-MB (CK-2) CK-MB (CK-2) Rel Index Total Protein Albumin Urine WBC (Auto) Vancomycin Trough Salicylates Acetaminophen Plasma/Serum Alcohol Crossmatch 11/24/19 11/25/19 11/25/19 05:22 04:34 05:05 WBC 17.3 H RBC 2.88 L Hgb 7.8 L Hct 24.6 L MCH 27 L RDW 18.5 H Plt Count Lymph % (Auto) 7.7 L [place] % (Auto) 9.7 H [place] # 1.7 H Seg Neutrophils % 82.2 H Seg Neuts % (Manual) Lymphocytes % (Manual) Monocytes % (Manual) Seg Neutrophils # 14.2 H Seg Neutrophils # Man Lymphocytes # (Manual) Monocytes # (Manual) Eosinophils # (Manual) Basophils # (Manual) PT INR APTT ABG pH 7.475 H ABG pO2 ABG HCO3 29.4 H 32.3 H ABG O2 Saturation ABG Base Excess 5.4 H 6.9 H ABG Hemoglobin 9.0 L 10.6 L Oxyhemoglobin 94.3 L Sodium Potassium Chloride Carbon Dioxide BUN Creatinine Glucose POC Glucose Lactic Acid Calcium Ionized Calcium Phosphorus Magnesium Total Bilirubin AST ALT Alkaline Phosphatase Ammonia Total Creatine Kinase CK-MB (CK-2) CK-MB (CK-2) Rel Index Total Protein Albumin Urine WBC (Auto) Vancomycin Trough Salicylates Acetaminophen Plasma/Serum Alcohol Crossmatch 11/25/19 11/25/19 11/26/19 05:05 22:46 03:31 WBC RBC Hgb Hct MCH RDW Plt Count Lymph % (Auto) [place] % (Auto) [place] # Seg Neutrophils % Seg Neuts % (Manual) Lymphocytes % (Manual) Monocytes % (Manual) Seg Neutrophils # Seg Neutrophils # Man Lymphocytes # (Manual) Monocytes # (Manual) Eosinophils # (Manual) Basophils # (Manual) PT INR APTT ABG pH 7.459 H ABG pO2 ABG HCO3 34.2 H ABG O2 Saturation ABG Base Excess 9.4 H ABG Hemoglobin 7.6 L Oxyhemoglobin 94.8 L Sodium 152 H D 147 H Potassium 2.3 L* D 2.8 L* D Chloride 107.8 H Carbon Dioxide 31 H D 33 H BUN Creatinine 0.6 L 0.6 L Glucose 148 H 177 H POC Glucose Lactic Acid Calcium Ionized Calcium Phosphorus Magnesium Total Bilirubin AST 105 H ALT 71 H Alkaline Phosphatase 155 H Ammonia Total Creatine Kinase CK-MB (CK-2) CK-MB (CK-2) Rel Index Total Protein 5.2 L D Albumin 2.9 L Urine WBC (Auto) Vancomycin Trough Salicylates Acetaminophen Plasma/Serum Alcohol Crossmatch 11/26/19 11/26/19 11/27/19 08:24 08:24 04:20 WBC 12.0 H RBC 3.00 L Hgb 8.0 L 9.3 L Hct 25.9 L 29.7 L MCH 27 L RDW 18.5 H Plt Count Lymph % (Auto) [place] % (Auto) [place] # Seg Neutrophils % Seg Neuts % (Manual) 89.0 H Lymphocytes % (Manual) 4.0 L Monocytes % (Manual) Seg Neutrophils # Seg Neutrophils # Man 10.7 H Lymphocytes # (Manual) 0.5 L Monocytes # (Manual) Eosinophils # (Manual) Basophils # (Manual) PT INR APTT ABG pH ABG pO2 ABG HCO3 ABG O2 Saturation ABG Base Excess ABG Hemoglobin Oxyhemoglobin Sodium 146 H Potassium 3.4 L D Chloride Carbon Dioxide BUN Creatinine 0.5 L Glucose 165 H POC Glucose Lactic Acid Calcium Ionized Calcium Phosphorus Magnesium Total Bilirubin AST 57 H ALT Alkaline Phosphatase 166 H Ammonia Total Creatine Kinase CK-MB (CK-2) CK-MB (CK-2) Rel Index Total Protein Albumin 2.9 L Urine WBC (Auto) Vancomycin Trough Salicylates Acetaminophen Plasma/Serum Alcohol Crossmatch 11/27/19 11/27/19 11/27/19 04:28 04:28 04:42 WBC RBC Hgb Hct MCH RDW Plt Count Lymph % (Auto) [place] % (Auto) [place] # Seg Neutrophils % Seg Neuts % (Manual) Lymphocytes % (Manual) Monocytes % (Manual) Seg Neutrophils # Seg Neutrophils # Man Lymphocytes # (Manual) Monocytes # (Manual) Eosinophils # (Manual) Basophils # (Manual) PT INR APTT ABG pH 7.470 H ABG pO2 74.0 L ABG HCO3 33.8 H ABG O2 Saturation ABG Base Excess 9.1 H ABG Hemoglobin 8.7 L Oxyhemoglobin 94.7 L Sodium 146 H Potassium 2.9 L* Chloride Carbon Dioxide BUN 25 H Creatinine Glucose 213 H POC Glucose Lactic Acid Calcium Ionized Calcium Phosphorus 1.00 L Magnesium Total Bilirubin AST ALT Alkaline Phosphatase Ammonia Total Creatine Kinase CK-MB (CK-2) CK-MB (CK-2) Rel Index Total Protein Albumin Urine WBC (Auto) Vancomycin Trough Salicylates Acetaminophen Plasma/Serum Alcohol Crossmatch 11/27/19 11/27/19 11/27/19 05:37 12:20 15:46 WBC RBC Hgb Hct MCH RDW Plt Count Lymph % (Auto) [place] % (Auto) [place] # Seg Neutrophils % Seg Neuts % (Manual) Lymphocytes % (Manual) Monocytes % (Manual) Seg Neutrophils # Seg Neutrophils # Man Lymphocytes # (Manual) Monocytes # (Manual) Eosinophils # (Manual) Basophils # (Manual) PT INR APTT ABG pH ABG pO2 ABG HCO3 ABG O2 Saturation ABG Base Excess ABG Hemoglobin Oxyhemoglobin Sodium 146 H Potassium 3.5 L D Chloride Carbon Dioxide BUN 24 H Creatinine 0.6 L Glucose 187 H POC Glucose 117 H 220 H Lactic Acid Calcium Ionized Calcium Phosphorus Magnesium Total Bilirubin AST ALT Alkaline Phosphatase Ammonia Total Creatine Kinase CK-MB (CK-2) CK-MB (CK-2) Rel Index Total Protein Albumin Urine WBC (Auto) Vancomycin Trough Salicylates Acetaminophen Plasma/Serum Alcohol Crossmatch 11/27/19 11/28/19 11/28/19 17:28 05:00 05:02 WBC RBC Hgb Hct MCH RDW Plt Count Lymph % (Auto) [place] % (Auto) [place] # Seg Neutrophils % Seg Neuts % (Manual) Lymphocytes % (Manual) Monocytes % (Manual) Seg Neutrophils # Seg Neutrophils # Man Lymphocytes # (Manual) Monocytes # (Manual) Eosinophils # (Manual) Basophils # (Manual) PT INR APTT ABG pH ABG pO2 72.4 L ABG HCO3 33.6 H ABG O2 Saturation 94.1 L ABG Base Excess 7.3 H ABG Hemoglobin Oxyhemoglobin 91.8 L Sodium 146 H Potassium 3.3 L Chloride Carbon Dioxide BUN 25 H Creatinine 0.6 L Glucose 176 H POC Glucose 198 H Lactic Acid Calcium Ionized Calcium Phosphorus Magnesium Total Bilirubin AST ALT Alkaline Phosphatase Ammonia Total Creatine Kinase CK-MB (CK-2) CK-MB (CK-2) Rel Index Total Protein Albumin Urine WBC (Auto) Vancomycin Trough Salicylates Acetaminophen Plasma/Serum Alcohol Crossmatch 11/28/19 11/28/19 11/29/19 05:02 18:55 10:43 WBC 15.2 H 19.0 H RBC 3.06 L 3.01 L Hgb 8.3 L 8.3 L Hct 27.0 L 26.4 L MCH 27 L RDW 19.0 H 19.7 H Plt Count 479 H 611 H Lymph % (Auto) [place] % (Auto) [place] # Seg Neutrophils % Seg Neuts % (Manual) 92.0 H Lymphocytes % (Manual) 2.0 L Monocytes % (Manual) Seg Neutrophils # Seg Neutrophils # Man 14.0 H Lymphocytes # (Manual) 0.3 L Monocytes # (Manual) Eosinophils # (Manual) Basophils # (Manual) PT INR APTT ABG pH ABG pO2 ABG HCO3 ABG O2 Saturation ABG Base Excess ABG Hemoglobin Oxyhemoglobin Sodium Potassium Chloride Carbon Dioxide BUN Creatinine Glucose POC Glucose 138 H Lactic Acid Calcium Ionized Calcium Phosphorus Magnesium Total Bilirubin AST ALT Alkaline Phosphatase Ammonia Total Creatine Kinase CK-MB (CK-2) CK-MB (CK-2) Rel Index Total Protein Albumin Urine WBC (Auto) Vancomycin Trough Salicylates Acetaminophen Plasma/Serum Alcohol Crossmatch 11/29/19 11/29/19 11/29/19 10:43 12:27 19:25 WBC RBC Hgb Hct MCH RDW Plt Count Lymph % (Auto) [place] % (Auto) [place] # Seg Neutrophils % Seg Neuts % (Manual) Lymphocytes % (Manual) Monocytes % (Manual) Seg Neutrophils # Seg Neutrophils # Man Lymphocytes # (Manual) Monocytes # (Manual) Eosinophils # (Manual) Basophils # (Manual) PT INR APTT ABG pH ABG pO2 ABG HCO3 ABG O2 Saturation ABG Base Excess ABG Hemoglobin Oxyhemoglobin Sodium Potassium 2.8 L* Chloride Carbon Dioxide BUN 20 H Creatinine 0.5 L Glucose 121 H POC Glucose 128 H 120 H Lactic Acid Calcium Ionized Calcium Phosphorus Magnesium Total Bilirubin AST ALT Alkaline Phosphatase Ammonia Total Creatine Kinase CK-MB (CK-2) CK-MB (CK-2) Rel Index Total Protein Albumin Urine WBC (Auto) Vancomycin Trough Salicylates Acetaminophen Plasma/Serum Alcohol Crossmatch 11/29/19 11/30/19 11/30/19 23:46 04:10 05:02 WBC RBC Hgb Hct MCH RDW Plt Count Lymph % (Auto) [place] % (Auto) [place] # Seg Neutrophils % Seg Neuts % (Manual) Lymphocytes % (Manual) Monocytes % (Manual) Seg Neutrophils # Seg Neutrophils # Man Lymphocytes # (Manual) Monocytes # (Manual) Eosinophils # (Manual) Basophils # (Manual) PT INR APTT ABG pH ABG pO2 76.3 L ABG HCO3 32.5 H ABG O2 Saturation ABG Base Excess 6.9 H ABG Hemoglobin 8.0 L Oxyhemoglobin 92.6 L Sodium Potassium Chloride Carbon Dioxide BUN Creatinine Glucose POC Glucose 116 H 128 H Lactic Acid Calcium Ionized Calcium Phosphorus Magnesium Total Bilirubin AST ALT Alkaline Phosphatase Ammonia Total Creatine Kinase CK-MB (CK-2) CK-MB (CK-2) Rel Index Total Protein Albumin Urine WBC (Auto) Vancomycin Trough Salicylates Acetaminophen Plasma/Serum Alcohol Crossmatch 11/30/19 11/30/19 11/30/19 05:25 05:25 12:59 WBC 18.4 H RBC 3.10 L Hgb 8.5 L Hct 27.5 L MCH 27 L RDW 20.9 H Plt Count 691 H Lymph % (Auto) 7.1 L [place] % (Auto) 7.7 H [place] # 1.4 H Seg Neutrophils % 83.4 H Seg Neuts % (Manual) Lymphocytes % (Manual) Monocytes % (Manual) Seg Neutrophils # 15.4 H Seg Neutrophils # Man Lymphocytes # (Manual) Monocytes # (Manual) Eosinophils # (Manual) Basophils # (Manual) PT INR APTT ABG pH ABG pO2 ABG HCO3 ABG O2 Saturation ABG Base Excess ABG Hemoglobin Oxyhemoglobin Sodium 146 H Potassium Chloride 107.2 H Carbon Dioxide BUN Creatinine 0.5 L Glucose 132 H POC Glucose 124 H Lactic Acid Calcium Ionized Calcium Phosphorus Magnesium Total Bilirubin AST 246 H ALT 274 H Alkaline Phosphatase 203 H Ammonia Total Creatine Kinase CK-MB (CK-2) CK-MB (CK-2) Rel Index Total Protein 5.4 L Albumin 2.9 L Urine WBC (Auto) Vancomycin Trough Salicylates Acetaminophen Plasma/Serum Alcohol Crossmatch 11/30/19 12/01/19 12/01/19 17:53 00:05 05:10 WBC RBC Hgb Hct MCH RDW Plt Count Lymph % (Auto) [place] % (Auto) [place] # Seg Neutrophils % Seg Neuts % (Manual) Lymphocytes % (Manual) Monocytes % (Manual) Seg Neutrophils # Seg Neutrophils # Man Lymphocytes # (Manual) Monocytes # (Manual) Eosinophils # (Manual) Basophils # (Manual) PT INR APTT ABG pH ABG pO2 ABG HCO3 ABG O2 Saturation ABG Base Excess ABG Hemoglobin Oxyhemoglobin Sodium Potassium Chloride Carbon Dioxide BUN Creatinine Glucose POC Glucose 113 H 143 H 145 H Lactic Acid Calcium Ionized Calcium Phosphorus Magnesium Total Bilirubin AST ALT Alkaline Phosphatase Ammonia Total Creatine Kinase CK-MB (CK-2) CK-MB (CK-2) Rel Index Total Protein Albumin Urine WBC (Auto) Vancomycin Trough Salicylates Acetaminophen Plasma/Serum Alcohol Crossmatch 12/01/19 12/01/19 12/01/19 05:33 08:23 08:23 WBC 22.7 H RBC 2.88 L Hgb 7.9 L Hct 25.2 L MCH 27 L RDW 21.0 H Plt Count 732 H Lymph % (Auto) [place] % (Auto) [place] # Seg Neutrophils % Seg Neuts % (Manual) 91.0 H Lymphocytes % (Manual) 3.0 L Monocytes % (Manual) Seg Neutrophils # Seg Neutrophils # Man 20.7 H Lymphocytes # (Manual) 0.7 L Monocytes # (Manual) 1.1 H Eosinophils # (Manual) Basophils # (Manual) PT INR APTT ABG pH ABG pO2 68.6 L ABG HCO3 34.1 H ABG O2 Saturation ABG Base Excess 9.0 H ABG Hemoglobin 6.5 L Oxyhemoglobin 94.7 L Sodium Potassium Chloride Carbon Dioxide BUN Creatinine 0.5 L Glucose 125 H POC Glucose Lactic Acid Calcium Ionized Calcium Phosphorus Magnesium Total Bilirubin AST ALT Alkaline Phosphatase Ammonia Total Creatine Kinase CK-MB (CK-2) CK-MB (CK-2) Rel Index Total Protein Albumin Urine WBC (Auto) Vancomycin Trough Salicylates Acetaminophen Plasma/Serum Alcohol Crossmatch 12/01/19 12/01/19 12/01/19 13:21 17:54 20:59 WBC RBC Hgb Hct MCH RDW Plt Count Lymph % (Auto) [place] % (Auto) [place] # Seg Neutrophils % Seg Neuts % (Manual) Lymphocytes % (Manual) Monocytes % (Manual) Seg Neutrophils # Seg Neutrophils # Man Lymphocytes # (Manual) Monocytes # (Manual) Eosinophils # (Manual) Basophils # (Manual) PT INR APTT ABG pH ABG pO2 78.3 L ABG HCO3 33.8 H ABG O2 Saturation 94.9 L ABG Base Excess 7.9 H ABG Hemoglobin 11.5 L Oxyhemoglobin 92.3 L Sodium Potassium Chloride Carbon Dioxide BUN Creatinine Glucose POC Glucose 111 H 115 H Lactic Acid Calcium Ionized Calcium Phosphorus Magnesium Total Bilirubin AST ALT Alkaline Phosphatase Ammonia Total Creatine Kinase CK-MB (CK-2) CK-MB (CK-2) Rel Index Total Protein Albumin Urine WBC (Auto) Vancomycin Trough Salicylates Acetaminophen Plasma/Serum Alcohol Crossmatch 12/02/19 12/03/19 12/04/19 12:55 20:00 04:26 WBC 15.2 H RBC 2.69 L Hgb 7.4 L Hct 23.6 L MCH 27 L RDW 19.9 H Plt Count 838 H Lymph % (Auto) [place] % (Auto) [place] # Seg Neutrophils % Seg Neuts % (Manual) Lymphocytes % (Manual) Monocytes % (Manual) Seg Neutrophils # Seg Neutrophils # Man Lymphocytes # (Manual) Monocytes # (Manual) Eosinophils # (Manual) Basophils # (Manual) PT INR APTT ABG pH ABG pO2 68.3 L ABG HCO3 33.5 H ABG O2 Saturation 93.5 L ABG Base Excess 8.4 H ABG Hemoglobin 7.3 L Oxyhemoglobin 90.9 L Sodium Potassium Chloride Carbon Dioxide BUN Creatinine Glucose POC Glucose 107 H Lactic Acid Calcium Ionized Calcium Phosphorus Magnesium Total Bilirubin AST ALT Alkaline Phosphatase Ammonia Total Creatine Kinase CK-MB (CK-2) CK-MB (CK-2) Rel Index Total Protein Albumin Urine WBC (Auto) Vancomycin Trough Salicylates Acetaminophen Plasma/Serum Alcohol Crossmatch 12/04/19 12/04/19 12/04/19 04:26 07:45 12:02 WBC 15.9 H RBC 2.88 L Hgb 7.9 L Hct 25.1 L MCH RDW 20.4 H Plt Count 839 H Lymph % (Auto) 11.3 L [place] % (Auto) 15.2 H [place] # 2.4 H Seg Neutrophils % 72.4 H Seg Neuts % (Manual) Lymphocytes % (Manual) Monocytes % (Manual) Seg Neutrophils # 11.5 H Seg Neutrophils # Man Lymphocytes # (Manual) Monocytes # (Manual) Eosinophils # (Manual) Basophils # (Manual) PT INR APTT ABG pH ABG pO2 ABG HCO3 ABG O2 Saturation ABG Base Excess ABG Hemoglobin Oxyhemoglobin Sodium Potassium Chloride 96.5 L Carbon Dioxide BUN 21 H Creatinine 0.6 L Glucose 107 H POC Glucose 138 H Lactic Acid Calcium Ionized Calcium Phosphorus Magnesium Total Bilirubin AST ALT Alkaline Phosphatase Ammonia Total Creatine Kinase CK-MB (CK-2) CK-MB (CK-2) Rel Index Total Protein Albumin Urine WBC (Auto) Vancomycin Trough Salicylates Acetaminophen Plasma/Serum Alcohol Crossmatch 12/04/19 12/05/19 12/05/19 18:16 11:55 18:36 WBC RBC Hgb Hct MCH RDW Plt Count Lymph % (Auto) [place] % (Auto) [place] # Seg Neutrophils % Seg Neuts % (Manual) Lymphocytes % (Manual) Monocytes % (Manual) Seg Neutrophils # Seg Neutrophils # Man Lymphocytes # (Manual) Monocytes # (Manual) Eosinophils # (Manual) Basophils # (Manual) PT INR APTT ABG pH ABG pO2 ABG HCO3 ABG O2 Saturation ABG Base Excess ABG Hemoglobin Oxyhemoglobin Sodium Potassium Chloride Carbon Dioxide BUN Creatinine Glucose POC Glucose 135 H 125 H 135 H Lactic Acid Calcium Ionized Calcium Phosphorus Magnesium Total Bilirubin AST ALT Alkaline Phosphatase Ammonia Total Creatine Kinase CK-MB (CK-2) CK-MB (CK-2) Rel Index Total Protein Albumin Urine WBC (Auto) Vancomycin Trough Salicylates Acetaminophen Plasma/Serum Alcohol Crossmatch 12/05/19 12/06/19 12/06/19 23:30 04:14 05:43 WBC RBC Hgb Hct MCH RDW Plt Count Lymph % (Auto) [place] % (Auto) [place] # Seg Neutrophils % Seg Neuts % (Manual) Lymphocytes % (Manual) Monocytes % (Manual) Seg Neutrophils # Seg Neutrophils # Man Lymphocytes # (Manual) Monocytes # (Manual) Eosinophils # (Manual) Basophils # (Manual) PT INR APTT ABG pH ABG pO2 ABG HCO3 ABG O2 Saturation ABG Base Excess ABG Hemoglobin Oxyhemoglobin Sodium Potassium 5.6 H Chloride 95.0 L Carbon Dioxide BUN 48 H Creatinine 1.3 H D Glucose POC Glucose 126 H 121 H Lactic Acid Calcium Ionized Calcium Phosphorus Magnesium Total Bilirubin AST 89 H ALT 98 H Alkaline Phosphatase 476 H Ammonia Total Creatine Kinase CK-MB (CK-2) CK-MB (CK-2) Rel Index Total Protein Albumin 2.8 L Urine WBC (Auto) Vancomycin Trough Salicylates Acetaminophen Plasma/Serum Alcohol Crossmatch 12/06/19 12/06/19 12/07/19 10:39 14:34 00:19 WBC 17.3 H RBC 2.60 L Hgb 7.1 L Hct 22.7 L MCH 27 L RDW 20.1 H Plt Count 832 H Lymph % (Auto) [place] % (Auto) [place] # Seg Neutrophils % Seg Neuts % (Manual) Lymphocytes % (Manual) Monocytes % (Manual) Seg Neutrophils # Seg Neutrophils # Man Lymphocytes # (Manual) Monocytes # (Manual) Eosinophils # (Manual) Basophils # (Manual) PT INR APTT ABG pH ABG pO2 ABG HCO3 ABG O2 Saturation ABG Base Excess ABG Hemoglobin Oxyhemoglobin Sodium Potassium Chloride Carbon Dioxide BUN Creatinine Glucose POC Glucose 128 H 136 H Lactic Acid Calcium Ionized Calcium Phosphorus Magnesium Total Bilirubin AST ALT Alkaline Phosphatase Ammonia Total Creatine Kinase CK-MB (CK-2) CK-MB (CK-2) Rel Index Total Protein Albumin Urine WBC (Auto) Vancomycin Trough Salicylates Acetaminophen Plasma/Serum Alcohol Crossmatch 12/07/19 12/07/19 12/07/19 03:44 03:44 05:53 WBC 16.2 H RBC 2.56 L Hgb 7.1 L Hct 22.3 L MCH RDW 19.4 H Plt Count 782 H Lymph % (Auto) [place] % (Auto) [place] # Seg Neutrophils % Seg Neuts % (Manual) Lymphocytes % (Manual) Monocytes % (Manual) Seg Neutrophils # Seg Neutrophils # Man Lymphocytes # (Manual) Monocytes # (Manual) Eosinophils # (Manual) Basophils # (Manual) PT INR APTT ABG pH ABG pO2 ABG HCO3 ABG O2 Saturation ABG Base Excess ABG Hemoglobin Oxyhemoglobin Sodium Potassium Chloride 95.6 L Carbon Dioxide BUN 56 H Creatinine 1.4 H Glucose 120 H POC Glucose 128 H Lactic Acid Calcium 10.3 H Ionized Calcium Phosphorus Magnesium Total Bilirubin AST ALT Alkaline Phosphatase Ammonia Total Creatine Kinase CK-MB (CK-2) CK-MB (CK-2) Rel Index Total Protein Albumin Urine WBC (Auto) Vancomycin Trough Salicylates Acetaminophen Plasma/Serum Alcohol Crossmatch 03/20/20 03/20/20 03/21/20 12:54 23:47 00:20 WBC RBC Hgb Hct MCH RDW Plt Count Lymph % (Auto) [place] % (Auto) [place] # Seg Neutrophils % Seg Neuts % (Manual) Lymphocytes % (Manual) Monocytes % (Manual) Seg Neutrophils # Seg Neutrophils # Man Lymphocytes # (Manual) Monocytes # (Manual) Eosinophils # (Manual) Basophils # (Manual) PT INR APTT ABG pH ABG pO2 ABG HCO3 ABG O2 Saturation ABG Base Excess ABG Hemoglobin Oxyhemoglobin Sodium Potassium Chloride Carbon Dioxide BUN Creatinine Glucose POC Glucose 128 H 130 H 124 H Lactic Acid Calcium Ionized Calcium Phosphorus Magnesium Total Bilirubin AST ALT Alkaline Phosphatase Ammonia Total Creatine Kinase CK-MB (CK-2) CK-MB (CK-2) Rel Index Total Protein Albumin Urine WBC (Auto) Vancomycin Trough Salicylates Acetaminophen Plasma/Serum Alcohol Crossmatch 12/08/19 12/08/19 12/08/19 06:38 12:04 18:26 WBC RBC Hgb Hct MCH RDW Plt Count Lymph % (Auto) [place] % (Auto) [place] # Seg Neutrophils % Seg Neuts % (Manual) Lymphocytes % (Manual) Monocytes % (Manual) Seg Neutrophils # Seg Neutrophils # Man Lymphocytes # (Manual) Monocytes # (Manual) Eosinophils # (Manual) Basophils # (Manual) PT INR APTT ABG pH ABG pO2 ABG HCO3 ABG O2 Saturation ABG Base Excess ABG Hemoglobin Oxyhemoglobin Sodium Potassium Chloride Carbon Dioxide BUN Creatinine Glucose POC Glucose 137 H 129 H 150 H Lactic Acid Calcium Ionized Calcium Phosphorus Magnesium Total Bilirubin AST ALT Alkaline Phosphatase Ammonia Total Creatine Kinase CK-MB (CK-2) CK-MB (CK-2) Rel Index Total Protein Albumin Urine WBC (Auto) Vancomycin Trough Salicylates Acetaminophen Plasma/Serum Alcohol Crossmatch 12/09/19 12/09/19 12/09/19 00:56 05:34 06:13 WBC RBC Hgb Hct MCH RDW Plt Count Lymph % (Auto) [place] % (Auto) [place] # Seg Neutrophils % Seg Neuts % (Manual) Lymphocytes % (Manual) Monocytes % (Manual) Seg Neutrophils # Seg Neutrophils # Man Lymphocytes # (Manual) Monocytes # (Manual) Eosinophils # (Manual) Basophils # (Manual) PT INR APTT ABG pH ABG pO2 ABG HCO3 ABG O2 Saturation ABG Base Excess ABG Hemoglobin Oxyhemoglobin Sodium 146 H Potassium Chloride Carbon Dioxide BUN 66 H Creatinine 1.9 H Glucose 116 H POC Glucose 130 H 130 H Lactic Acid Calcium Ionized Calcium Phosphorus Magnesium Total Bilirubin AST ALT Alkaline Phosphatase Ammonia Total Creatine Kinase CK-MB (CK-2) CK-MB (CK-2) Rel Index Total Protein Albumin Urine WBC (Auto) Vancomycin Trough Salicylates Acetaminophen Plasma/Serum Alcohol Crossmatch 12/09/19 12/09/19 12/10/19 11:52 17:50 00:14 WBC RBC Hgb Hct MCH RDW Plt Count Lymph % (Auto) [place] % (Auto) [place] # Seg Neutrophils % Seg Neuts % (Manual) Lymphocytes % (Manual) Monocytes % (Manual) Seg Neutrophils # Seg Neutrophils # Man Lymphocytes # (Manual) Monocytes # (Manual) Eosinophils # (Manual) Basophils # (Manual) PT INR APTT ABG pH ABG pO2 ABG HCO3 ABG O2 Saturation ABG Base Excess ABG Hemoglobin Oxyhemoglobin Sodium Potassium Chloride Carbon Dioxide BUN Creatinine Glucose POC Glucose 135 H 120 H 116 H Lactic Acid Calcium Ionized Calcium Phosphorus Magnesium Total Bilirubin AST ALT Alkaline Phosphatase Ammonia Total Creatine Kinase CK-MB (CK-2) CK-MB (CK-2) Rel Index Total Protein Albumin Urine WBC (Auto) Vancomycin Trough Salicylates Acetaminophen Plasma/Serum Alcohol Crossmatch 12/10/19 12/10/19 12/10/19 05:38 11:38 17:34 WBC RBC Hgb Hct MCH RDW Plt Count Lymph % (Auto) [place] % (Auto) [place] # Seg Neutrophils % Seg Neuts % (Manual) Lymphocytes % (Manual) Monocytes % (Manual) Seg Neutrophils # Seg Neutrophils # Man Lymphocytes # (Manual) Monocytes # (Manual) Eosinophils # (Manual) Basophils # (Manual) PT INR APTT ABG pH ABG pO2 ABG HCO3 ABG O2 Saturation ABG Base Excess ABG Hemoglobin Oxyhemoglobin Sodium Potassium Chloride Carbon Dioxide BUN Creatinine Glucose POC Glucose 115 H 112 H 130 H Lactic Acid Calcium Ionized Calcium Phosphorus Magnesium Total Bilirubin AST ALT Alkaline Phosphatase Ammonia Total Creatine Kinase CK-MB (CK-2) CK-MB (CK-2) Rel Index Total Protein Albumin Urine WBC (Auto) Vancomycin Trough Salicylates Acetaminophen Plasma/Serum Alcohol Crossmatch 12/11/19 12/11/19 12/11/19 00:20 05:31 12:22 WBC RBC Hgb Hct MCH RDW Plt Count Lymph % (Auto) [place] % (Auto) [place] # Seg Neutrophils % Seg Neuts % (Manual) Lymphocytes % (Manual) Monocytes % (Manual) Seg Neutrophils # Seg Neutrophils # Man Lymphocytes # (Manual) Monocytes # (Manual) Eosinophils # (Manual) Basophils # (Manual) PT INR APTT ABG pH ABG pO2 ABG HCO3 ABG O2 Saturation ABG Base Excess ABG Hemoglobin Oxyhemoglobin Sodium Potassium Chloride Carbon Dioxide BUN Creatinine Glucose POC Glucose 124 H 132 H 128 H Lactic Acid Calcium Ionized Calcium Phosphorus Magnesium Total Bilirubin AST ALT Alkaline Phosphatase Ammonia Total Creatine Kinase CK-MB (CK-2) CK-MB (CK-2) Rel Index Total Protein Albumin Urine WBC (Auto) Vancomycin Trough Salicylates Acetaminophen Plasma/Serum Alcohol Crossmatch 12/11/19 12/11/19 12/12/19 18:04 23:42 03:51 WBC RBC Hgb Hct MCH RDW Plt Count Lymph % (Auto) [place] % (Auto) [place] # Seg Neutrophils % Seg Neuts % (Manual) Lymphocytes % (Manual) Monocytes % (Manual) Seg Neutrophils # Seg Neutrophils # Man Lymphocytes # (Manual) Monocytes # (Manual) Eosinophils # (Manual) Basophils # (Manual) PT INR APTT ABG pH ABG pO2 ABG HCO3 ABG O2 Saturation ABG Base Excess ABG Hemoglobin Oxyhemoglobin Sodium 149 H Potassium Chloride Carbon Dioxide 20 L D BUN 77 H Creatinine 2.8 H Glucose POC Glucose 133 H 154 H Lactic Acid Calcium Ionized Calcium Phosphorus Magnesium Total Bilirubin AST ALT Alkaline Phosphatase Ammonia Total Creatine Kinase CK-MB (CK-2) CK-MB (CK-2) Rel Index Total Protein Albumin Urine WBC (Auto) Vancomycin Trough Salicylates Acetaminophen Plasma/Serum Alcohol Crossmatch 12/12/19 12/12/19 12/12/19 05:18 05:26 10:30 WBC 18.0 H RBC 2.51 L Hgb 6.8 L Hct 22.0 L MCH 27 L RDW 19.9 H Plt Count 582 H Lymph % (Auto) [place] % (Auto) [place] # Seg Neutrophils % Seg Neuts % (Manual) Lymphocytes % (Manual) Monocytes % (Manual) Seg Neutrophils # Seg Neutrophils # Man Lymphocytes # (Manual) Monocytes # (Manual) Eosinophils # (Manual) Basophils # (Manual) PT INR APTT ABG pH ABG pO2 ABG HCO3 ABG O2 Saturation ABG Base Excess ABG Hemoglobin Oxyhemoglobin Sodium Potassium Chloride Carbon Dioxide BUN Creatinine Glucose POC Glucose 135 H Lactic Acid Calcium Ionized Calcium Phosphorus Magnesium Total Bilirubin AST ALT Alkaline Phosphatase Ammonia Total Creatine Kinase CK-MB (CK-2) CK-MB (CK-2) Rel Index Total Protein Albumin Urine WBC (Auto) Vancomycin Trough Salicylates Acetaminophen Plasma/Serum Alcohol Crossmatch See Detail 12/12/19 12/12/19 12/12/19 11:44 18:10 23:21 WBC RBC Hgb Hct MCH RDW Plt Count Lymph % (Auto) [place] % (Auto) [place] # Seg Neutrophils % Seg Neuts % (Manual) Lymphocytes % (Manual) Monocytes % (Manual) Seg Neutrophils # Seg Neutrophils # Man Lymphocytes # (Manual) Monocytes # (Manual) Eosinophils # (Manual) Basophils # (Manual) PT INR APTT ABG pH ABG pO2 ABG HCO3 ABG O2 Saturation ABG Base Excess ABG Hemoglobin Oxyhemoglobin Sodium Potassium Chloride Carbon Dioxide BUN Creatinine Glucose POC Glucose 108 H 107 H 126 H Lactic Acid Calcium Ionized Calcium Phosphorus Magnesium Total Bilirubin AST ALT Alkaline Phosphatase Ammonia Total Creatine Kinase CK-MB (CK-2) CK-MB (CK-2) Rel Index Total Protein Albumin Urine WBC (Auto) Vancomycin Trough Salicylates Acetaminophen Plasma/Serum Alcohol Crossmatch 12/13/19 12/13/19 12/13/19 05:41 07:48 07:48 WBC 38.3 H RBC 2.37 L Hgb 6.3 L Hct 20.9 L MCH 27 L RDW 20.2 H Plt Count 546 H Lymph % (Auto) [place] % (Auto) [place] # Seg Neutrophils % Seg Neuts % (Manual) 93.0 H Lymphocytes % (Manual) 1.0 L Monocytes % (Manual) Seg Neutrophils # Seg Neutrophils # Man 35.6 H Lymphocytes # (Manual) 0.4 L Monocytes # (Manual) Eosinophils # (Manual) Basophils # (Manual) 0.4 H PT INR APTT ABG pH ABG pO2 ABG HCO3 ABG O2 Saturation ABG Base Excess ABG Hemoglobin Oxyhemoglobin Sodium 152 H Potassium 3.1 L D Chloride 111.9 H Carbon Dioxide 21 L BUN 53 H Creatinine 1.9 H Glucose 141 H POC Glucose 128 H Lactic Acid Calcium Ionized Calcium Phosphorus Magnesium Total Bilirubin AST ALT Alkaline Phosphatase 316 H Ammonia Total Creatine Kinase CK-MB (CK-2) CK-MB (CK-2) Rel Index Total Protein Albumin 2.4 L Urine WBC (Auto) Vancomycin Trough Salicylates Acetaminophen Plasma/Serum Alcohol Crossmatch 12/13/19 12/13/19 12/14/19 18:17 23:19 05:36 WBC RBC Hgb Hct MCH RDW Plt Count Lymph % (Auto) [place] % (Auto) [place] # Seg Neutrophils % Seg Neuts % (Manual) Lymphocytes % (Manual) Monocytes % (Manual) Seg Neutrophils # Seg Neutrophils # Man Lymphocytes # (Manual) Monocytes # (Manual) Eosinophils # (Manual) Basophils # (Manual) PT INR APTT ABG pH ABG pO2 ABG HCO3 ABG O2 Saturation ABG Base Excess ABG Hemoglobin Oxyhemoglobin Sodium Potassium Chloride Carbon Dioxide BUN Creatinine Glucose POC Glucose 141 H 158 H 182 H Lactic Acid Calcium Ionized Calcium Phosphorus Magnesium Total Bilirubin AST ALT Alkaline Phosphatase Ammonia Total Creatine Kinase CK-MB (CK-2) CK-MB (CK-2) Rel Index Total Protein Albumin Urine WBC (Auto) Vancomycin Trough Salicylates Acetaminophen Plasma/Serum Alcohol Crossmatch 12/14/19 12/14/19 12/14/19 08:48 08:48 10:31 WBC 33.3 H RBC 2.70 L Hgb 7.9 L 8.0 L Hct 25.3 L 24.0 L MCH RDW 19.2 H Plt Count 476 H Lymph % (Auto) [place] % (Auto) [place] # Seg Neutrophils % Seg Neuts % (Manual) Lymphocytes % (Manual) Monocytes % (Manual) Seg Neutrophils # Seg Neutrophils # Man Lymphocytes # (Manual) Monocytes # (Manual) Eosinophils # (Manual) Basophils # (Manual) PT INR APTT ABG pH ABG pO2 ABG HCO3 ABG O2 Saturation ABG Base Excess ABG Hemoglobin Oxyhemoglobin Sodium 153 H Potassium 2.5 L* Chloride 114.9 H Carbon Dioxide 20 L BUN 38 H Creatinine 1.4 H Glucose 177 H POC Glucose Lactic Acid Calcium Ionized Calcium Phosphorus Magnesium Total Bilirubin AST ALT Alkaline Phosphatase Ammonia Total Creatine Kinase CK-MB (CK-2) CK-MB (CK-2) Rel Index Total Protein Albumin Urine WBC (Auto) Vancomycin Trough Salicylates Acetaminophen Plasma/Serum Alcohol Crossmatch 12/14/19 12/14/19 12/14/19 12:57 16:15 17:50 WBC RBC Hgb Hct MCH RDW Plt Count Lymph % (Auto) [place] % (Auto) [place] # Seg Neutrophils % Seg Neuts % (Manual) Lymphocytes % (Manual) Monocytes % (Manual) Seg Neutrophils # Seg Neutrophils # Man Lymphocytes # (Manual) Monocytes # (Manual) Eosinophils # (Manual) Basophils # (Manual) PT INR APTT ABG pH ABG pO2 73.6 L ABG HCO3 ABG O2 Saturation ABG Base Excess ABG Hemoglobin 7.6 L Oxyhemoglobin 94.0 L Sodium Potassium Chloride Carbon Dioxide BUN Creatinine Glucose POC Glucose 174 H 150 H Lactic Acid Calcium Ionized Calcium Phosphorus Magnesium Total Bilirubin AST ALT Alkaline Phosphatase Ammonia Total Creatine Kinase CK-MB (CK-2) CK-MB (CK-2) Rel Index Total Protein Albumin Urine WBC (Auto) Vancomycin Trough Salicylates Acetaminophen Plasma/Serum Alcohol Crossmatch 12/15/19 12/15/19 12/15/19 00:28 05:27 07:23 WBC 30.0 H RBC 3.11 L Hgb 8.6 L Hct 27.7 L MCH RDW 20.0 H Plt Count 473 H Lymph % (Auto) [place] % (Auto) [place] # Seg Neutrophils % Seg Neuts % (Manual) Lymphocytes % (Manual) Monocytes % (Manual) Seg Neutrophils # Seg Neutrophils # Man Lymphocytes # (Manual) Monocytes # (Manual) Eosinophils # (Manual) Basophils # (Manual) PT INR APTT ABG pH ABG pO2 ABG HCO3 ABG O2 Saturation ABG Base Excess ABG Hemoglobin Oxyhemoglobin Sodium Potassium Chloride Carbon Dioxide BUN Creatinine Glucose POC Glucose 167 H 148 H Lactic Acid Calcium Ionized Calcium Phosphorus Magnesium Total Bilirubin AST ALT Alkaline Phosphatase Ammonia Total Creatine Kinase CK-MB (CK-2) CK-MB (CK-2) Rel Index Total Protein Albumin Urine WBC (Auto) Vancomycin Trough Salicylates Acetaminophen Plasma/Serum Alcohol Crossmatch 12/15/19 12/15/19 12/15/19 07:23 12:21 17:41 WBC RBC Hgb Hct MCH RDW Plt Count Lymph % (Auto) [place] % (Auto) [place] # Seg Neutrophils % Seg Neuts % (Manual) Lymphocytes % (Manual) Monocytes % (Manual) Seg Neutrophils # Seg Neutrophils # Man Lymphocytes # (Manual) Monocytes # (Manual) Eosinophils # (Manual) Basophils # (Manual) PT INR APTT ABG pH ABG pO2 ABG HCO3 ABG O2 Saturation ABG Base Excess ABG Hemoglobin Oxyhemoglobin Sodium 147 H Potassium 3.5 L D Chloride 111.2 H Carbon Dioxide 19 L BUN 29 H Creatinine Glucose 126 H POC Glucose 154 H 144 H Lactic Acid Calcium Ionized Calcium Phosphorus Magnesium Total Bilirubin AST ALT Alkaline Phosphatase Ammonia Total Creatine Kinase CK-MB (CK-2) CK-MB (CK-2) Rel Index Total Protein Albumin Urine WBC (Auto) Vancomycin Trough Salicylates Acetaminophen Plasma/Serum Alcohol Crossmatch 12/16/19 12/16/19 12/16/19 00:22 05:30 05:44 WBC 30.8 H RBC 2.58 L Hgb 7.1 L Hct 22.7 L MCH RDW 19.6 H Plt Count 451 H Lymph % (Auto) [place] % (Auto) [place] # Seg Neutrophils % Seg Neuts % (Manual) Lymphocytes % (Manual) Monocytes % (Manual) Seg Neutrophils # Seg Neutrophils # Man Lymphocytes # (Manual) Monocytes # (Manual) Eosinophils # (Manual) Basophils # (Manual) PT INR APTT ABG pH ABG pO2 ABG HCO3 ABG O2 Saturation ABG Base Excess ABG Hemoglobin Oxyhemoglobin Sodium Potassium Chloride Carbon Dioxide BUN Creatinine Glucose POC Glucose 139 H 126 H Lactic Acid Calcium Ionized Calcium Phosphorus Magnesium Total Bilirubin AST ALT Alkaline Phosphatase Ammonia Total Creatine Kinase CK-MB (CK-2) CK-MB (CK-2) Rel Index Total Protein Albumin Urine WBC (Auto) Vancomycin Trough Salicylates Acetaminophen Plasma/Serum Alcohol Crossmatch 12/16/19 12/16/19 12/16/19 05:44 11:48 17:37 WBC RBC Hgb Hct MCH RDW Plt Count Lymph % (Auto) [place] % (Auto) [place] # Seg Neutrophils % Seg Neuts % (Manual) Lymphocytes % (Manual) Monocytes % (Manual) Seg Neutrophils # Seg Neutrophils # Man Lymphocytes # (Manual) Monocytes # (Manual) Eosinophils # (Manual) Basophils # (Manual) PT INR APTT ABG pH ABG pO2 ABG HCO3 ABG O2 Saturation ABG Base Excess ABG Hemoglobin Oxyhemoglobin Sodium Potassium 3.4 L Chloride 109.2 H Carbon Dioxide 19 L BUN 27 H Creatinine Glucose 124 H POC Glucose 125 H 148 H Lactic Acid Calcium Ionized Calcium Phosphorus Magnesium Total Bilirubin AST ALT Alkaline Phosphatase Ammonia Total Creatine Kinase CK-MB (CK-2) CK-MB (CK-2) Rel Index Total Protein Albumin Urine WBC (Auto) Vancomycin Trough Salicylates Acetaminophen Plasma/Serum Alcohol Crossmatch 12/16/19 12/17/19 12/17/19 23:43 05:28 12:47 WBC RBC Hgb Hct MCH RDW Plt Count Lymph % (Auto) [place] % (Auto) [place] # Seg Neutrophils % Seg Neuts % (Manual) Lymphocytes % (Manual) Monocytes % (Manual) Seg Neutrophils # Seg Neutrophils # Man Lymphocytes # (Manual) Monocytes # (Manual) Eosinophils # (Manual) Basophils # (Manual) PT INR APTT ABG pH ABG pO2 ABG HCO3 ABG O2 Saturation ABG Base Excess ABG Hemoglobin Oxyhemoglobin Sodium Potassium Chloride Carbon Dioxide BUN Creatinine Glucose POC Glucose 142 H 140 H 125 H Lactic Acid Calcium Ionized Calcium Phosphorus Magnesium Total Bilirubin AST ALT Alkaline Phosphatase Ammonia Total Creatine Kinase CK-MB (CK-2) CK-MB (CK-2) Rel Index Total Protein Albumin Urine WBC (Auto) Vancomycin Trough Salicylates Acetaminophen Plasma/Serum Alcohol Crossmatch 12/17/19 12/17/19 12/17/19 17:05 18:00 Unknown WBC RBC Hgb Hct MCH RDW Plt Count Lymph % (Auto) [place] % (Auto) [place] # Seg Neutrophils % Seg Neuts % (Manual) Lymphocytes % (Manual) Monocytes % (Manual) Seg Neutrophils # Seg Neutrophils # Man Lymphocytes # (Manual) Monocytes # (Manual) Eosinophils # (Manual) Basophils # (Manual) PT INR APTT ABG pH ABG pO2 68.1 L ABG HCO3 ABG O2 Saturation 93.7 L ABG Base Excess ABG Hemoglobin 5.0 L Oxyhemoglobin 91.7 L Sodium Potassium Chloride Carbon Dioxide BUN Creatinine Glucose POC Glucose 140 H Lactic Acid Calcium Ionized Calcium Phosphorus Magnesium Total Bilirubin AST ALT Alkaline Phosphatase Ammonia Total Creatine Kinase CK-MB (CK-2) CK-MB (CK-2) Rel Index Total Protein Albumin Urine WBC (Auto) Vancomycin Trough Salicylates Acetaminophen Plasma/Serum Alcohol Crossmatch 12/18/19 12/18/19 12/18/19 00:16 04:53 04:53 WBC 28.6 H RBC 2.27 L Hgb 6.3 L Hct 19.5 L* MCH RDW 20.0 H Plt Count 497 H Lymph % (Auto) [place] % (Auto) [place] # Seg Neutrophils % Seg Neuts % (Manual) Lymphocytes % (Manual) Monocytes % (Manual) Seg Neutrophils # Seg Neutrophils # Man Lymphocytes # (Manual) Monocytes # (Manual) Eosinophils # (Manual) Basophils # (Manual) PT INR APTT ABG pH ABG pO2 ABG HCO3 ABG O2 Saturation ABG Base Excess ABG Hemoglobin Oxyhemoglobin Sodium Potassium Chloride 107.9 H Carbon Dioxide 20 L BUN 27 H Creatinine 0.6 L Glucose 116 H POC Glucose 123 H Lactic Acid Calcium Ionized Calcium Phosphorus Magnesium Total Bilirubin AST ALT Alkaline Phosphatase Ammonia Total Creatine Kinase CK-MB (CK-2) CK-MB (CK-2) Rel Index Total Protein Albumin Urine WBC (Auto) Vancomycin Trough Salicylates Acetaminophen Plasma/Serum Alcohol Crossmatch 12/18/19 12/18/19 12/18/19 06:38 11:22 12:08 WBC RBC Hgb Hct MCH RDW Plt Count Lymph % (Auto) [place] % (Auto) [place] # Seg Neutrophils % Seg Neuts % (Manual) Lymphocytes % (Manual) Monocytes % (Manual) Seg Neutrophils # Seg Neutrophils # Man Lymphocytes # (Manual) Monocytes # (Manual) Eosinophils # (Manual) Basophils # (Manual) PT INR APTT ABG pH ABG pO2 ABG HCO3 ABG O2 Saturation ABG Base Excess ABG Hemoglobin Oxyhemoglobin Sodium Potassium Chloride Carbon Dioxide BUN Creatinine Glucose POC Glucose 120 H 127 H Lactic Acid Calcium Ionized Calcium Phosphorus Magnesium Total Bilirubin AST ALT Alkaline Phosphatase Ammonia Total Creatine Kinase CK-MB (CK-2) CK-MB (CK-2) Rel Index Total Protein Albumin Urine WBC (Auto) Vancomycin Trough Salicylates Acetaminophen Plasma/Serum Alcohol Crossmatch See Detail 12/18/19 12/18/19 12/18/19 14:05 17:49 23:53 WBC RBC Hgb Hct MCH RDW Plt Count Lymph % (Auto) [place] % (Auto) [place] # Seg Neutrophils % Seg Neuts % (Manual) Lymphocytes % (Manual) Monocytes % (Manual) Seg Neutrophils # Seg Neutrophils # Man Lymphocytes # (Manual) Monocytes # (Manual) Eosinophils # (Manual) Basophils # (Manual) PT INR APTT ABG pH 7.267 L ABG pO2 69.8 L ABG HCO3 ABG O2 Saturation 88.4 L ABG Base Excess ABG Hemoglobin 7.1 L Oxyhemoglobin 86.4 L Sodium Potassium Chloride Carbon Dioxide BUN Creatinine Glucose POC Glucose 157 H 128 H Lactic Acid Calcium Ionized Calcium Phosphorus Magnesium Total Bilirubin AST ALT Alkaline Phosphatase Ammonia Total Creatine Kinase CK-MB (CK-2) CK-MB (CK-2) Rel Index Total Protein Albumin Urine WBC (Auto) Vancomycin Trough Salicylates Acetaminophen Plasma/Serum Alcohol Crossmatch 12/19/19 12/19/19 12/19/19 03:37 03:37 05:25 WBC 31.3 H RBC 2.60 L Hgb 7.6 L Hct 23.0 L MCH RDW 19.4 H Plt Count 530 H Lymph % (Auto) [place] % (Auto) [place] # Seg Neutrophils % Seg Neuts % (Manual) Lymphocytes % (Manual) Monocytes % (Manual) Seg Neutrophils # Seg Neutrophils # Man Lymphocytes # (Manual) Monocytes # (Manual) Eosinophils # (Manual) Basophils # (Manual) PT INR APTT ABG pH ABG pO2 ABG HCO3 ABG O2 Saturation ABG Base Excess ABG Hemoglobin Oxyhemoglobin Sodium Potassium Chloride Carbon Dioxide 18 L BUN 36 H Creatinine Glucose 111 H POC Glucose 123 H Lactic Acid Calcium Ionized Calcium Phosphorus Magnesium Total Bilirubin AST ALT Alkaline Phosphatase Ammonia Total Creatine Kinase CK-MB (CK-2) CK-MB (CK-2) Rel Index Total Protein Albumin Urine WBC (Auto) Vancomycin Trough Salicylates Acetaminophen Plasma/Serum Alcohol Crossmatch 12/19/19 12/19/19 12/20/19 12:59 18:33 00:00 WBC RBC Hgb Hct MCH RDW Plt Count Lymph % (Auto) [place] % (Auto) [place] # Seg Neutrophils % Seg Neuts % (Manual) Lymphocytes % (Manual) Monocytes % (Manual) Seg Neutrophils # Seg Neutrophils # Man Lymphocytes # (Manual) Monocytes # (Manual) Eosinophils # (Manual) Basophils # (Manual) PT INR APTT ABG pH ABG pO2 ABG HCO3 ABG O2 Saturation ABG Base Excess ABG Hemoglobin Oxyhemoglobin Sodium Potassium Chloride Carbon Dioxide BUN Creatinine Glucose POC Glucose 130 H 118 H 135 H Lactic Acid Calcium Ionized Calcium Phosphorus Magnesium Total Bilirubin AST ALT Alkaline Phosphatase Ammonia Total Creatine Kinase CK-MB (CK-2) CK-MB (CK-2) Rel Index Total Protein Albumin Urine WBC (Auto) Vancomycin Trough Salicylates Acetaminophen Plasma/Serum Alcohol Crossmatch 12/20/19 12/20/19 12/20/19 05:46 12:31 18:07 WBC RBC Hgb Hct MCH RDW Plt Count Lymph % (Auto) [place] % (Auto) [place] # Seg Neutrophils % Seg Neuts % (Manual) Lymphocytes % (Manual) Monocytes % (Manual) Seg Neutrophils # Seg Neutrophils # Man Lymphocytes # (Manual) Monocytes # (Manual) Eosinophils # (Manual) Basophils # (Manual) PT INR APTT ABG pH ABG pO2 ABG HCO3 ABG O2 Saturation ABG Base Excess ABG Hemoglobin Oxyhemoglobin Sodium Potassium Chloride Carbon Dioxide BUN Creatinine Glucose POC Glucose 131 H 128 H 134 H Lactic Acid Calcium Ionized Calcium Phosphorus Magnesium Total Bilirubin AST ALT Alkaline Phosphatase Ammonia Total Creatine Kinase CK-MB (CK-2) CK-MB (CK-2) Rel Index Total Protein Albumin Urine WBC (Auto) Vancomycin Trough Salicylates Acetaminophen Plasma/Serum Alcohol Crossmatch 12/21/19 12/21/19 12/21/19 03:28 03:28 07:21 WBC 29.4 H RBC 2.30 L Hgb 6.8 L Hct 20.2 L MCH RDW 20.2 H Plt Count 746 H Lymph % (Auto) [place] % (Auto) [place] # Seg Neutrophils % Seg Neuts % (Manual) 85.0 H Lymphocytes % (Manual) 8.0 L Monocytes % (Manual) Seg Neutrophils # Seg Neutrophils # Man 25.0 H Lymphocytes # (Manual) Monocytes # (Manual) 1.5 H Eosinophils # (Manual) 0.6 H Basophils # (Manual) PT INR APTT ABG pH ABG pO2 ABG HCO3 ABG O2 Saturation ABG Base Excess ABG Hemoglobin Oxyhemoglobin Sodium Potassium Chloride Carbon Dioxide 17 L BUN 57 H Creatinine 1.4 H D Glucose POC Glucose 124 H Lactic Acid Calcium Ionized Calcium Phosphorus Magnesium Total Bilirubin AST ALT Alkaline Phosphatase Ammonia Total Creatine Kinase CK-MB (CK-2) CK-MB (CK-2) Rel Index Total Protein Albumin Urine WBC (Auto) Vancomycin Trough Salicylates Acetaminophen Plasma/Serum Alcohol Crossmatch 12/21/19 12/21/19 12/21/19 08:56 12:06 14:53 WBC RBC Hgb 7.2 L Hct 22.9 L MCH RDW Plt Count Lymph % (Auto) [place] % (Auto) [place] # Seg Neutrophils % Seg Neuts % (Manual) Lymphocytes % (Manual) Monocytes % (Manual) Seg Neutrophils # Seg Neutrophils # Man Lymphocytes # (Manual) Monocytes # (Manual) Eosinophils # (Manual) Basophils # (Manual) PT INR APTT ABG pH ABG pO2 ABG HCO3 ABG O2 Saturation ABG Base Excess ABG Hemoglobin Oxyhemoglobin Sodium Potassium Chloride Carbon Dioxide BUN Creatinine Glucose POC Glucose 116 H Lactic Acid Calcium Ionized Calcium Phosphorus Magnesium Total Bilirubin AST ALT Alkaline Phosphatase Ammonia Total Creatine Kinase CK-MB (CK-2) CK-MB (CK-2) Rel Index Total Protein Albumin Urine WBC (Auto) Vancomycin Trough 33.8 H Salicylates Acetaminophen Plasma/Serum Alcohol Crossmatch 12/21/19 12/21/19 12/21/19 14:54 17:27 23:49 WBC RBC Hgb Hct MCH RDW Plt Count Lymph % (Auto) [place] % (Auto) [place] # Seg Neutrophils % Seg Neuts % (Manual) Lymphocytes % (Manual) Monocytes % (Manual) Seg Neutrophils # Seg Neutrophils # Man Lymphocytes # (Manual) Monocytes # (Manual) Eosinophils # (Manual) Basophils # (Manual) PT INR APTT ABG pH ABG pO2 ABG HCO3 ABG O2 Saturation ABG Base Excess ABG Hemoglobin Oxyhemoglobin Sodium Potassium Chloride Carbon Dioxide BUN Creatinine Glucose POC Glucose 145 H 127 H Lactic Acid Calcium Ionized Calcium Phosphorus Magnesium Total Bilirubin AST ALT Alkaline Phosphatase Ammonia Total Creatine Kinase CK-MB (CK-2) CK-MB (CK-2) Rel Index Total Protein Albumin Urine WBC (Auto) Vancomycin Trough Salicylates Acetaminophen Plasma/Serum Alcohol Crossmatch See Detail 12/22/19 12/22/19 12/22/19 04:43 05:56 08:40 WBC RBC Hgb Hct MCH RDW Plt Count Lymph % (Auto) [place] % (Auto) [place] # Seg Neutrophils % Seg Neuts % (Manual) Lymphocytes % (Manual) Monocytes % (Manual) Seg Neutrophils # Seg Neutrophils # Man Lymphocytes # (Manual) Monocytes # (Manual) Eosinophils # (Manual) Basophils # (Manual) PT INR APTT ABG pH ABG pO2 75.6 L ABG HCO3 ABG O2 Saturation ABG Base Excess -2.6 L ABG Hemoglobin 6.8 L Oxyhemoglobin 94.6 L Sodium Potassium Chloride Carbon Dioxide 17 L BUN 60 H Creatinine 1.4 H Glucose 126 H POC Glucose 153 H Lactic Acid Calcium Ionized Calcium Phosphorus Magnesium Total Bilirubin AST ALT Alkaline Phosphatase Ammonia Total Creatine Kinase CK-MB (CK-2) CK-MB (CK-2) Rel Index Total Protein Albumin Urine WBC (Auto) Vancomycin Trough Salicylates Acetaminophen Plasma/Serum Alcohol Crossmatch 12/22/19 12/22/19 12/23/19 12:07 17:49 04:30 WBC 22.4 H RBC 2.68 L Hgb 7.6 L Hct 22.9 L MCH RDW 19.9 H Plt Count 998 H Lymph % (Auto) [place] % (Auto) [place] # Seg Neutrophils % Seg Neuts % (Manual) 88.0 H Lymphocytes % (Manual) 2.0 L Monocytes % (Manual) 9.0 H Seg Neutrophils # Seg Neutrophils # Man 19.7 H Lymphocytes # (Manual) 0.4 L Monocytes # (Manual) 2.0 H Eosinophils # (Manual) Basophils # (Manual) PT INR APTT ABG pH ABG pO2 ABG HCO3 ABG O2 Saturation ABG Base Excess ABG Hemoglobin Oxyhemoglobin Sodium Potassium Chloride Carbon Dioxide BUN Creatinine Glucose POC Glucose 140 H 116 H Lactic Acid Calcium Ionized Calcium Phosphorus Magnesium Total Bilirubin AST ALT Alkaline Phosphatase Ammonia Total Creatine Kinase CK-MB (CK-2) CK-MB (CK-2) Rel Index Total Protein Albumin Urine WBC (Auto) Vancomycin Trough Salicylates Acetaminophen Plasma/Serum Alcohol Crossmatch 12/23/19 12/23/19 04:30 12:00 WBC RBC Hgb Hct MCH RDW Plt Count Lymph % (Auto) [place] % (Auto) [place] # Seg Neutrophils % Seg Neuts % (Manual) Lymphocytes % (Manual) Monocytes % (Manual) Seg Neutrophils # Seg Neutrophils # Man Lymphocytes # (Manual) Monocytes # (Manual) Eosinophils # (Manual) Basophils # (Manual) PT INR APTT ABG pH ABG pO2 ABG HCO3 ABG O2 Saturation ABG Base Excess ABG Hemoglobin Oxyhemoglobin Sodium Potassium 5.2 H Chloride Carbon Dioxide 21 L BUN 69 H Creatinine 1.5 H Glucose 117 H POC Glucose 128 H Lactic Acid Calcium Ionized Calcium Phosphorus Magnesium Total Bilirubin AST ALT Alkaline Phosphatase Ammonia Total Creatine Kinase CK-MB (CK-2) CK-MB (CK-2) Rel Index Total Protein Albumin Urine WBC (Auto) Vancomycin Trough Salicylates Acetaminophen Plasma/Serum Alcohol Crossmatch Allied health notes reviewed: nursing
[2019-12-23] MEDS: QUEtiapine 100 MG TAB PO SCH (21:09)
[2019-12-24 05:46] LABS: Calcium 9.5 mg/dL (8.4-10.2)
[2019-12-24] MEDS ORDERED: SENNOSIDES/DOCUSATE SODIUM 8.6/50 MG TAB PO PRN (07:00)
--- NOTE | 2019-12-24 09:39 | Progress Note ---
Assessment and Plan Acute cardiopulmonary arrest with ROSC Acute hypoxemic respiratory failure on MVS MRSA Bacteremia MRSA pneumonia Acute edlayxwfj-tozfo-fyxxdx encephalopathy Metabolic acidosis/alcoholic acidosis/Lactic acidosis( resolved) Ischemic hepatitis Leucocytosis - persistent Erythrocytosis Tobacco use disorder Alcohol use Disorder -Discussed with RT, the need for daily SBT-continue the same while monitoring response -Continue antibiotics- Vancomycin to complete course. Monitor for toxicities -Repeat blood cultures -Trach care, airway clearance, secretion management( Start Robinul) -CXR, ABG in the morning -Stop scheduled Librium -Medical management of hyperkalemia -Monitor WCC -Continue contact isolation for MRSA -Continue all care as documented below. -Continue with MVS, Lung protective strategies, monitor airway pressures -VAP bundle addressed -Continue aspiration precautions, HOB>40 -Continue daily assessment for readiness for SBT -Continue Stress ulcer prophylaxis -Continue enteric nutritional support at goal rate. Monitor glycemic control, with target blood glucose 140-180 mg/dL while critically ill. -Avoid hypoglycemia - Continue to wean supplemental oxygen for target O2 sat's > 90% -Continue thiamine, multivitamin and electrolyte replacement -Continue to avoid nephrotoxins, adjust all medications for GFR and CrCL - Continue bronchodilators with pulmonary hygiene - Continue prn analgesia per CPOT score - Continue to maintain of sleep-wake cycle, avoid delirium - PT/OT/ROM exercises - Continue mobility protocol and skin assessment per protocol for pressure ulcer prevention - Continue to monitor for clinical seizures - continue other care per attending / other consultants CONDITION: CRITICAL PROGNOSIS: GUARDED CODE STATUS: FULL CODE The high probability of a clinically significant, sudden or life-threatening deterioration of the [respiratory, cardiovascular,GI/hepatology/Neurology] system(s) required my full and direct attention, intervention and personal management. The aggregate critical care time was [31] minutes without overlap. Time includes spent on; [x] Data Review and interpretation [x] Patient assessment and monitoring of vital signs [x] Documentation [x] Medication orders and management Subjective Date of service: 12/24/19 Principal diagnosis: Ac cardiopulmonary arrest; Ac hypoxemic resp failure; Acute encephalopathy Interval history: Patient is seen today for: Acute cardiopulmonary arrest with ROSC; Acute hypoxemic respiratory failure; Acute metabolic-toxic encephalopathy; Ischemic hepatitis; Leucocytosis with lactic acidosis; Tobacco use disorder; Alcohol use Disorder; s/p tracheostomy Seen and examined at bedside; 24hour events reviewed; nursing and respiratory care staff consulted; no adverse overnight events reported to me; resting peacefully in bed; 12/21/2019 no fevers,s/p trach, s/p PEG. Tolerating tube feedings, On going urinary retention- bladder scan >900 by night RN requiring straight catheterizing, now greater than 800 on bladder scan. Did not tolerate SBT, became tacyhpnic; On contact isolation for MRSA On Propofol at 5mcg, minimally responsive 12/24/2019 -Failed CPAP this mmorning, became apneic -Trach size #8 on MVS -AC-26/400/6/30% -Some slight worsening of renal function -Hyperkalemia of 5.3 -On Vancomycin for MRSA bacteremia, repeat blood cultures NGTD -Copious tracheal and oral secretions -No ABG this morning Objective Vital Signs - 12hr 12/23/19 12/23/19 12/23/19 21:46 22:00 22:15 Temperature Pulse Rate 127 H 122 H 124 H Pulse Rate [ From Monitor] Respiratory 26 H 26 H 26 H Rate Blood Pressure 107/62 114/68 97/58 O2 Sat by Pulse 96 96 94 Oximetry 12/23/19 12/23/19 12/23/19 22:30 22:45 23:00 Temperature Pulse Rate 118 H 119 H 121 H Pulse Rate [ From Monitor] Respiratory 26 H 26 H 26 H Rate Blood Pressure 122/72 112/67 114/71 O2 Sat by Pulse 97 97 98 Oximetry 12/23/19 12/23/19 12/23/19 23:06 23:15 23:30 Temperature Pulse Rate 121 H 120 H 121 H Pulse Rate [ From Monitor] Respiratory 26 H 26 H 26 H Rate Blood Pressure 107/62 112/69 113/69 O2 Sat by Pulse 98 98 98 Oximetry 12/23/19 12/23/19 12/24/19 23:32 23:45 00:00 Temperature 99.6 F Pulse Rate 120 H 119 H 118 H Pulse Rate [ 117 H From Monitor] Respiratory 26 H 25 H 26 H Rate Blood Pressure 113/69 116/74 122/74 O2 Sat by Pulse 98 98 97 Oximetry 12/24/19 12/24/19 12/24/19 00:15 00:30 00:45 Temperature Pulse Rate 118 H 119 H 114 H Pulse Rate [ From Monitor] Respiratory 27 H 26 H 25 H Rate Blood Pressure 124/79 119/78 126/76 O2 Sat by Pulse 97 97 96 Oximetry 12/24/19 12/24/19 12/24/19 01:00 01:15 01:30 Temperature Pulse Rate 119 H 116 H 119 H Pulse Rate [ From Monitor] Respiratory 26 H 64 H 25 H Rate Blood Pressure 126/72 116/74 125/73 O2 Sat by Pulse 96 97 96 Oximetry 12/24/19 12/24/19 12/24/19 01:45 01:52 02:00 Temperature Pulse Rate 120 H 120 H 121 H Pulse Rate [ From Monitor] Respiratory 26 H 26 H Rate Blood Pressure 115/77 115/77 123/76 O2 Sat by Pulse 96 96 96 Oximetry 12/24/19 12/24/19 12/24/19 02:15 02:30 02:45 Temperature Pulse Rate 122 H 118 H 118 H Pulse Rate [ From Monitor] Respiratory 11 L 26 H 26 H Rate Blood Pressure 120/82 110/77 119/74 O2 Sat by Pulse 96 97 99 Oximetry 12/24/19 12/24/19 12/24/19 03:00 03:15 03:30 Temperature Pulse Rate 117 H 115 H 115 H Pulse Rate [ From Monitor] Respiratory 25 H 26 H 26 H Rate Blood Pressure 119/75 116/70 117/72 O2 Sat by Pulse 99 98 98 Oximetry 12/24/19 12/24/19 12/24/19 03:46 04:00 04:15 Temperature 99.3 F Pulse Rate 114 H 113 H 114 H Pulse Rate [ 113 H From Monitor] Respiratory 26 H 26 H 26 H Rate Blood Pressure 113/69 119/73 109/70 O2 Sat by Pulse 96 97 96 Oximetry 12/24/19 12/24/19 12/24/19 04:30 04:45 05:00 Temperature Pulse Rate 112 H 110 H 110 H Pulse Rate [ From Monitor] Respiratory 26 H 26 H 26 H Rate Blood Pressure 113/68 111/69 108/70 O2 Sat by Pulse 97 98 97 Oximetry 12/24/19 12/24/19 12/24/19 05:15 05:30 05:45 Temperature Pulse Rate 107 H 105 H 104 H Pulse Rate [ From Monitor] Respiratory 26 H 26 H 26 H Rate Blood Pressure 113/71 112/74 120/79 O2 Sat by Pulse 98 99 100 Oximetry 12/24/19 12/24/19 12/24/19 06:00 06:15 06:30 Temperature Pulse Rate 101 H 101 H 103 H Pulse Rate [ From Monitor] Respiratory 26 H 26 H 26 H Rate Blood Pressure 125/78 130/84 132/85 O2 Sat by Pulse 100 100 100 Oximetry 12/24/19 12/24/19 12/24/19 06:45 07:00 07:15 Temperature Pulse Rate 105 H 107 H 108 H Pulse Rate [ From Monitor] Respiratory 26 H 26 H 26 H Rate Blood Pressure 123/74 128/80 130/79 O2 Sat by Pulse 98 98 98 Oximetry 12/24/19 12/24/19 12/24/19 07:30 07:45 08:00 Temperature Pulse Rate 109 H 109 H 110 H Pulse Rate [ From Monitor] Respiratory 26 H 26 H 26 H Rate Blood Pressure 125/76 125/82 123/75 O2 Sat by Pulse 98 98 98 Oximetry 12/24/19 12/24/19 08:15 08:43 Temperature Pulse Rate 112 H 107 H Pulse Rate [ From Monitor] Respiratory 26 H Rate Blood Pressure 116/65 117/68 O2 Sat by Pulse 97 98 Oximetry Constitutional: no acute distress, other (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, with midline tracheostomy and no dys-synchrony, copious secretions) Eyes: non-icteric ENT: oropharynx moist, other (s/p trach) Neck: supple, no lymphadenopathy, no JVD Effort: normal Ascultation: Bilateral: diminished breath sounds, rhonchi Percussion: Bilateral: not dull Cardiovascular: regular rate and rhythm (tachycardia), other (S1,S2) Gastrointestinal: normoactive bowel sounds, soft, non-tender, non-distended Integumentary: normal Extremities: no cyanosis, no edema, pulses normal, no ischemia or petechiae Neurologic: unable to assess, other (unresponsive) Psychiatric: other (Psychiatric: Unable to assess) CBC and BMP: 12/25/19 03:47 12/25/19 03:47 ABG, PT/INR, D-dimer: ABG ABG pH 7.389 pH Units (7.350-7.450) 12/22/19 08:40 ABG pCO2 37.5 mm Hg 12/22/19 08:40 ABG pO2 75.6 mm Hg (80.0-90.0) L 12/22/19 08:40 ABG O2 Saturation 96.7 % (95.0-99.0) 12/22/19 08:40 PT/INR, D-dimer PT 17.0 Sec. (12.2-14.9) H 11/23/19 03:47 INR 1.36 (0.87-1.13) H 11/23/19 03:47 Abnormal lab findings: Abnormal Labs 11/22/19 11/22/19 11/22/19 23:17 23:18 23:27 WBC 21.2 H RBC 3.59 L Hgb 9.8 L Hct MCH 27 L RDW 18.6 H Plt Count 454 H Lymph % (Auto) [place] % (Auto) [place] # Seg Neutrophils % Seg Neuts % (Manual) 86.0 H Lymphocytes % (Manual) 9.0 L Monocytes % (Manual) Seg Neutrophils # Seg Neutrophils # Man 18.2 H Lymphocytes # (Manual) Monocytes # (Manual) 1.1 H Eosinophils # (Manual) Basophils # (Manual) PT INR APTT ABG pH ABG pO2 ABG HCO3 ABG O2 Saturation ABG Base Excess ABG Hemoglobin Oxyhemoglobin Sodium Potassium Chloride Carbon Dioxide BUN Creatinine Glucose POC Glucose 53 L Lactic Acid Calcium Ionized Calcium Phosphorus Magnesium Total Bilirubin AST ALT Alkaline Phosphatase Ammonia Total Creatine Kinase CK-MB (CK-2) CK-MB (CK-2) Rel Index Total Protein Albumin Urine WBC (Auto) 40.0 H Vancomycin Trough Salicylates Acetaminophen Plasma/Serum Alcohol Crossmatch 11/22/19 11/22/19 11/22/19 23:27 23:27 23:27 WBC RBC Hgb Hct MCH RDW Plt Count Lymph % (Auto) [place] % (Auto) [place] # Seg Neutrophils % Seg Neuts % (Manual) Lymphocytes % (Manual) Monocytes % (Manual) Seg Neutrophils # Seg Neutrophils # Man Lymphocytes # (Manual) Monocytes # (Manual) Eosinophils # (Manual) Basophils # (Manual) PT INR APTT ABG pH ABG pO2 ABG HCO3 ABG O2 Saturation ABG Base Excess ABG Hemoglobin Oxyhemoglobin Sodium Potassium 2.4 L* Chloride 85.1 L Carbon Dioxide 19 L BUN Creatinine 0.5 L Glucose 261 H POC Glucose Lactic Acid Calcium Ionized Calcium Phosphorus Magnesium Total Bilirubin AST 609 H ALT 152 H Alkaline Phosphatase 160 H Ammonia 117.0 H Total Creatine Kinase 139 H CK-MB (CK-2) 8.3 H CK-MB (CK-2) Rel Index 5.9 H Total Protein Albumin 3.6 L Urine WBC (Auto) Vancomycin Trough Salicylates < 0.3 L Acetaminophen Plasma/Serum Alcohol Crossmatch 11/22/19 11/22/19 11/23/19 23:27 23:27 01:10 WBC RBC Hgb Hct MCH RDW Plt Count Lymph % (Auto) [place] % (Auto) [place] # Seg Neutrophils % Seg Neuts % (Manual) Lymphocytes % (Manual) Monocytes % (Manual) Seg Neutrophils # Seg Neutrophils # Man Lymphocytes # (Manual) Monocytes # (Manual) Eosinophils # (Manual) Basophils # (Manual) PT INR APTT ABG pH 7.273 L ABG pO2 209.7 H ABG HCO3 ABG O2 Saturation 99.2 H ABG Base Excess -3.9 L ABG Hemoglobin 10.6 L Oxyhemoglobin 93.9 L Sodium Potassium Chloride Carbon Dioxide BUN Creatinine Glucose POC Glucose Lactic Acid Calcium Ionized Calcium Phosphorus Magnesium Total Bilirubin AST ALT Alkaline Phosphatase Ammonia Total Creatine Kinase CK-MB (CK-2) CK-MB (CK-2) Rel Index Total Protein Albumin Urine WBC (Auto) Vancomycin Trough Salicylates Acetaminophen < 5.0 L Plasma/Serum Alcohol 0.08 H Crossmatch 11/23/19 11/23/19 11/23/19 01:19 01:19 03:47 WBC RBC Hgb Hct MCH RDW Plt Count Lymph % (Auto) [place] % (Auto) [place] # Seg Neutrophils % Seg Neuts % (Manual) Lymphocytes % (Manual) Monocytes % (Manual) Seg Neutrophils # Seg Neutrophils # Man Lymphocytes # (Manual) Monocytes # (Manual) Eosinophils # (Manual) Basophils # (Manual) PT 16.3 H INR 1.29 H APTT ABG pH ABG pO2 ABG HCO3 ABG O2 Saturation ABG Base Excess ABG Hemoglobin Oxyhemoglobin Sodium Potassium Chloride Carbon Dioxide BUN Creatinine Glucose POC Glucose Lactic Acid 2.10 H* 5.00 H* Calcium Ionized Calcium Phosphorus Magnesium Total Bilirubin AST ALT Alkaline Phosphatase Ammonia Total Creatine Kinase CK-MB (CK-2) CK-MB (CK-2) Rel Index Total Protein Albumin Urine WBC (Auto) Vancomycin Trough Salicylates Acetaminophen Plasma/Serum Alcohol Crossmatch 11/23/19 11/23/19 11/23/19 03:47 03:47 04:53 WBC RBC Hgb 9.4 L Hct MCH RDW Plt Count Lymph % (Auto) [place] % (Auto) [place] # Seg Neutrophils % Seg Neuts % (Manual) Lymphocytes % (Manual) Monocytes % (Manual) Seg Neutrophils # Seg Neutrophils # Man Lymphocytes # (Manual) Monocytes # (Manual) Eosinophils # (Manual) Basophils # (Manual) PT 17.0 H INR 1.36 H APTT 128.2 H* ABG pH ABG pO2 ABG HCO3 ABG O2 Saturation ABG Base Excess ABG Hemoglobin Oxyhemoglobin Sodium Potassium Chloride Carbon Dioxide 18 L BUN Creatinine 0.5 L Glucose 105 H POC Glucose Lactic Acid Calcium 8.3 L Ionized Calcium Phosphorus 2.40 L Magnesium Total Bilirubin 1.30 H AST 761 H ALT 158 H Alkaline Phosphatase 143 H Ammonia Total Creatine Kinase CK-MB (CK-2) CK-MB (CK-2) Rel Index Total Protein Albumin 2.8 L Urine WBC (Auto) Vancomycin Trough Salicylates Acetaminophen Plasma/Serum Alcohol Crossmatch 11/23/19 11/23/19 11/23/19 05:12 06:32 06:32 WBC 16.8 H RBC 3.31 L Hgb 8.9 L Hct 28.7 L MCH 27 L RDW 18.6 H Plt Count Lymph % (Auto) [place] % (Auto) [place] # Seg Neutrophils % Seg Neuts % (Manual) 94.0 H Lymphocytes % (Manual) 1.0 L Monocytes % (Manual) Seg Neutrophils # Seg Neutrophils # Man 15.8 H Lymphocytes # (Manual) 0.2 L Monocytes # (Manual) Eosinophils # (Manual) Basophils # (Manual) PT INR APTT ABG pH ABG pO2 ABG HCO3 ABG O2 Saturation ABG Base Excess -3.2 L ABG Hemoglobin 9.0 L Oxyhemoglobin 93.6 L Sodium Potassium Chloride Carbon Dioxide BUN Creatinine Glucose POC Glucose Lactic Acid Calcium Ionized Calcium 4.5 L Phosphorus Magnesium Total Bilirubin AST ALT Alkaline Phosphatase Ammonia Total Creatine Kinase CK-MB (CK-2) CK-MB (CK-2) Rel Index Total Protein Albumin Urine WBC (Auto) Vancomycin Trough Salicylates Acetaminophen Plasma/Serum Alcohol Crossmatch 11/23/19 11/24/19 11/24/19 06:32 04:35 04:35 WBC RBC Hgb Hct MCH RDW Plt Count Lymph % (Auto) [place] % (Auto) [place] # Seg Neutrophils % Seg Neuts % (Manual) Lymphocytes % (Manual) Monocytes % (Manual) Seg Neutrophils # Seg Neutrophils # Man Lymphocytes # (Manual) Monocytes # (Manual) Eosinophils # (Manual) Basophils # (Manual) PT INR APTT ABG pH ABG pO2 ABG HCO3 ABG O2 Saturation ABG Base Excess ABG Hemoglobin Oxyhemoglobin Sodium Potassium Chloride Carbon Dioxide BUN Creatinine Glucose POC Glucose Lactic Acid 3.30 H* Calcium Ionized Calcium Phosphorus Magnesium 1.40 L Total Bilirubin AST ALT Alkaline Phosphatase Ammonia 98.0 H Total Creatine Kinase CK-MB (CK-2) CK-MB (CK-2) Rel Index Total Protein Albumin Urine WBC (Auto) Vancomycin Trough Salicylates Acetaminophen Plasma/Serum Alcohol Crossmatch 11/24/19 11/25/19 11/25/19 05:22 04:34 05:05 WBC 17.3 H RBC 2.88 L Hgb 7.8 L Hct 24.6 L MCH 27 L RDW 18.5 H Plt Count Lymph % (Auto) 7.7 L [place] % (Auto) 9.7 H [place] # 1.7 H Seg Neutrophils % 82.2 H Seg Neuts % (Manual) Lymphocytes % (Manual) Monocytes % (Manual) Seg Neutrophils # 14.2 H Seg Neutrophils # Man Lymphocytes # (Manual) Monocytes # (Manual) Eosinophils # (Manual) Basophils # (Manual) PT INR APTT ABG pH 7.475 H ABG pO2 ABG HCO3 29.4 H 32.3 H ABG O2 Saturation ABG Base Excess 5.4 H 6.9 H ABG Hemoglobin 9.0 L 10.6 L Oxyhemoglobin 94.3 L Sodium Potassium Chloride Carbon Dioxide BUN Creatinine Glucose POC Glucose Lactic Acid Calcium Ionized Calcium Phosphorus Magnesium Total Bilirubin AST ALT Alkaline Phosphatase Ammonia Total Creatine Kinase CK-MB (CK-2) CK-MB (CK-2) Rel Index Total Protein Albumin Urine WBC (Auto) Vancomycin Trough Salicylates Acetaminophen Plasma/Serum Alcohol Crossmatch 11/25/19 11/25/19 11/26/19 05:05 22:46 03:31 WBC RBC Hgb Hct MCH RDW Plt Count Lymph % (Auto) [place] % (Auto) [place] # Seg Neutrophils % Seg Neuts % (Manual) Lymphocytes % (Manual) Monocytes % (Manual) Seg Neutrophils # Seg Neutrophils # Man Lymphocytes # (Manual) Monocytes # (Manual) Eosinophils # (Manual) Basophils # (Manual) PT INR APTT ABG pH 7.459 H ABG pO2 ABG HCO3 34.2 H ABG O2 Saturation ABG Base Excess 9.4 H ABG Hemoglobin 7.6 L Oxyhemoglobin 94.8 L Sodium 152 H D 147 H Potassium 2.3 L* D 2.8 L* D Chloride 107.8 H Carbon Dioxide 31 H D 33 H BUN Creatinine 0.6 L 0.6 L Glucose 148 H 177 H POC Glucose Lactic Acid Calcium Ionized Calcium Phosphorus Magnesium Total Bilirubin AST 105 H ALT 71 H Alkaline Phosphatase 155 H Ammonia Total Creatine Kinase CK-MB (CK-2) CK-MB (CK-2) Rel Index Total Protein 5.2 L D Albumin 2.9 L Urine WBC (Auto) Vancomycin Trough Salicylates Acetaminophen Plasma/Serum Alcohol Crossmatch 11/26/19 11/26/19 11/27/19 08:24 08:24 04:20 WBC 12.0 H RBC 3.00 L Hgb 8.0 L 9.3 L Hct 25.9 L 29.7 L MCH 27 L RDW 18.5 H Plt Count Lymph % (Auto) [place] % (Auto) [place] # Seg Neutrophils % Seg Neuts % (Manual) 89.0 H Lymphocytes % (Manual) 4.0 L Monocytes % (Manual) Seg Neutrophils # Seg Neutrophils # Man 10.7 H Lymphocytes # (Manual) 0.5 L Monocytes # (Manual) Eosinophils # (Manual) Basophils # (Manual) PT INR APTT ABG pH ABG pO2 ABG HCO3 ABG O2 Saturation ABG Base Excess ABG Hemoglobin Oxyhemoglobin Sodium 146 H Potassium 3.4 L D Chloride Carbon Dioxide BUN Creatinine 0.5 L Glucose 165 H POC Glucose Lactic Acid Calcium Ionized Calcium Phosphorus Magnesium Total Bilirubin AST 57 H ALT Alkaline Phosphatase 166 H Ammonia Total Creatine Kinase CK-MB (CK-2) CK-MB (CK-2) Rel Index Total Protein Albumin 2.9 L Urine WBC (Auto) Vancomycin Trough Salicylates Acetaminophen Plasma/Serum Alcohol Crossmatch 11/27/19 11/27/19 11/27/19 04:28 04:28 04:42 WBC RBC Hgb Hct MCH RDW Plt Count Lymph % (Auto) [place] % (Auto) [place] # Seg Neutrophils % Seg Neuts % (Manual) Lymphocytes % (Manual) Monocytes % (Manual) Seg Neutrophils # Seg Neutrophils # Man Lymphocytes # (Manual) Monocytes # (Manual) Eosinophils # (Manual) Basophils # (Manual) PT INR APTT ABG pH 7.470 H ABG pO2 74.0 L ABG HCO3 33.8 H ABG O2 Saturation ABG Base Excess 9.1 H ABG Hemoglobin 8.7 L Oxyhemoglobin 94.7 L Sodium 146 H Potassium 2.9 L* Chloride Carbon Dioxide BUN 25 H Creatinine Glucose 213 H POC Glucose Lactic Acid Calcium Ionized Calcium Phosphorus 1.00 L Magnesium Total Bilirubin AST ALT Alkaline Phosphatase Ammonia Total Creatine Kinase CK-MB (CK-2) CK-MB (CK-2) Rel Index Total Protein Albumin Urine WBC (Auto) Vancomycin Trough Salicylates Acetaminophen Plasma/Serum Alcohol Crossmatch 11/27/19 11/27/19 11/27/19 05:37 12:20 15:46 WBC RBC Hgb Hct MCH RDW Plt Count Lymph % (Auto) [place] % (Auto) [place] # Seg Neutrophils % Seg Neuts % (Manual) Lymphocytes % (Manual) Monocytes % (Manual) Seg Neutrophils # Seg Neutrophils # Man Lymphocytes # (Manual) Monocytes # (Manual) Eosinophils # (Manual) Basophils # (Manual) PT INR APTT ABG pH ABG pO2 ABG HCO3 ABG O2 Saturation ABG Base Excess ABG Hemoglobin Oxyhemoglobin Sodium 146 H Potassium 3.5 L D Chloride Carbon Dioxide BUN 24 H Creatinine 0.6 L Glucose 187 H POC Glucose 117 H 220 H Lactic Acid Calcium Ionized Calcium Phosphorus Magnesium Total Bilirubin AST ALT Alkaline Phosphatase Ammonia Total Creatine Kinase CK-MB (CK-2) CK-MB (CK-2) Rel Index Total Protein Albumin Urine WBC (Auto) Vancomycin Trough Salicylates Acetaminophen Plasma/Serum Alcohol Crossmatch 11/27/19 11/28/19 11/28/19 17:28 05:00 05:02 WBC RBC Hgb Hct MCH RDW Plt Count Lymph % (Auto) [place] % (Auto) [place] # Seg Neutrophils % Seg Neuts % (Manual) Lymphocytes % (Manual) Monocytes % (Manual) Seg Neutrophils # Seg Neutrophils # Man Lymphocytes # (Manual) Monocytes # (Manual) Eosinophils # (Manual) Basophils # (Manual) PT INR APTT ABG pH ABG pO2 72.4 L ABG HCO3 33.6 H ABG O2 Saturation 94.1 L ABG Base Excess 7.3 H ABG Hemoglobin Oxyhemoglobin 91.8 L Sodium 146 H Potassium 3.3 L Chloride Carbon Dioxide BUN 25 H Creatinine 0.6 L Glucose 176 H POC Glucose 198 H Lactic Acid Calcium Ionized Calcium Phosphorus Magnesium Total Bilirubin AST ALT Alkaline Phosphatase Ammonia Total Creatine Kinase CK-MB (CK-2) CK-MB (CK-2) Rel Index Total Protein Albumin Urine WBC (Auto) Vancomycin Trough Salicylates Acetaminophen Plasma/Serum Alcohol Crossmatch 11/28/19 11/28/19 11/29/19 05:02 18:55 10:43 WBC 15.2 H 19.0 H RBC 3.06 L 3.01 L Hgb 8.3 L 8.3 L Hct 27.0 L 26.4 L MCH 27 L RDW 19.0 H 19.7 H Plt Count 479 H 611 H Lymph % (Auto) [place] % (Auto) [place] # Seg Neutrophils % Seg Neuts % (Manual) 92.0 H Lymphocytes % (Manual) 2.0 L Monocytes % (Manual) Seg Neutrophils # Seg Neutrophils # Man 14.0 H Lymphocytes # (Manual) 0.3 L Monocytes # (Manual) Eosinophils # (Manual) Basophils # (Manual) PT INR APTT ABG pH ABG pO2 ABG HCO3 ABG O2 Saturation ABG Base Excess ABG Hemoglobin Oxyhemoglobin Sodium Potassium Chloride Carbon Dioxide BUN Creatinine Glucose POC Glucose 138 H Lactic Acid Calcium Ionized Calcium Phosphorus Magnesium Total Bilirubin AST ALT Alkaline Phosphatase Ammonia Total Creatine Kinase CK-MB (CK-2) CK-MB (CK-2) Rel Index Total Protein Albumin Urine WBC (Auto) Vancomycin Trough Salicylates Acetaminophen Plasma/Serum Alcohol Crossmatch 11/29/19 11/29/19 11/29/19 10:43 12:27 19:25 WBC RBC Hgb Hct MCH RDW Plt Count Lymph % (Auto) [place] % (Auto) [place] # Seg Neutrophils % Seg Neuts % (Manual) Lymphocytes % (Manual) Monocytes % (Manual) Seg Neutrophils # Seg Neutrophils # Man Lymphocytes # (Manual) Monocytes # (Manual) Eosinophils # (Manual) Basophils # (Manual) PT INR APTT ABG pH ABG pO2 ABG HCO3 ABG O2 Saturation ABG Base Excess ABG Hemoglobin Oxyhemoglobin Sodium Potassium 2.8 L* Chloride Carbon Dioxide BUN 20 H Creatinine 0.5 L Glucose 121 H POC Glucose 128 H 120 H Lactic Acid Calcium Ionized Calcium Phosphorus Magnesium Total Bilirubin AST ALT Alkaline Phosphatase Ammonia Total Creatine Kinase CK-MB (CK-2) CK-MB (CK-2) Rel Index Total Protein Albumin Urine WBC (Auto) Vancomycin Trough Salicylates Acetaminophen Plasma/Serum Alcohol Crossmatch 11/29/19 11/30/19 11/30/19 23:46 04:10 05:02 WBC RBC Hgb Hct MCH RDW Plt Count Lymph % (Auto) [place] % (Auto) [place] # Seg Neutrophils % Seg Neuts % (Manual) Lymphocytes % (Manual) Monocytes % (Manual) Seg Neutrophils # Seg Neutrophils # Man Lymphocytes # (Manual) Monocytes # (Manual) Eosinophils # (Manual) Basophils # (Manual) PT INR APTT ABG pH ABG pO2 76.3 L ABG HCO3 32.5 H ABG O2 Saturation ABG Base Excess 6.9 H ABG Hemoglobin 8.0 L Oxyhemoglobin 92.6 L Sodium Potassium Chloride Carbon Dioxide BUN Creatinine Glucose POC Glucose 116 H 128 H Lactic Acid Calcium Ionized Calcium Phosphorus Magnesium Total Bilirubin AST ALT Alkaline Phosphatase Ammonia Total Creatine Kinase CK-MB (CK-2) CK-MB (CK-2) Rel Index Total Protein Albumin Urine WBC (Auto) Vancomycin Trough Salicylates Acetaminophen Plasma/Serum Alcohol Crossmatch 11/30/19 11/30/19 11/30/19 05:25 05:25 12:59 WBC 18.4 H RBC 3.10 L Hgb 8.5 L Hct 27.5 L MCH 27 L RDW 20.9 H Plt Count 691 H Lymph % (Auto) 7.1 L [place] % (Auto) 7.7 H [place] # 1.4 H Seg Neutrophils % 83.4 H Seg Neuts % (Manual) Lymphocytes % (Manual) Monocytes % (Manual) Seg Neutrophils # 15.4 H Seg Neutrophils # Man Lymphocytes # (Manual) Monocytes # (Manual) Eosinophils # (Manual) Basophils # (Manual) PT INR APTT ABG pH ABG pO2 ABG HCO3 ABG O2 Saturation ABG Base Excess ABG Hemoglobin Oxyhemoglobin Sodium 146 H Potassium Chloride 107.2 H Carbon Dioxide BUN Creatinine 0.5 L Glucose 132 H POC Glucose 124 H Lactic Acid Calcium Ionized Calcium Phosphorus Magnesium Total Bilirubin AST 246 H ALT 274 H Alkaline Phosphatase 203 H Ammonia Total Creatine Kinase CK-MB (CK-2) CK-MB (CK-2) Rel Index Total Protein 5.4 L Albumin 2.9 L Urine WBC (Auto) Vancomycin Trough Salicylates Acetaminophen Plasma/Serum Alcohol Crossmatch 11/30/19 12/01/1911/30/20 17:53 00:05 05:10 WBC RBC Hgb Hct MCH RDW Plt Count Lymph % (Auto) [place] % (Auto) [place] # Seg Neutrophils % Seg Neuts % (Manual) Lymphocytes % (Manual) Monocytes % (Manual) Seg Neutrophils # Seg Neutrophils # Man Lymphocytes # (Manual) Monocytes # (Manual) Eosinophils # (Manual) Basophils # (Manual) PT INR APTT ABG pH ABG pO2 ABG HCO3 ABG O2 Saturation ABG Base Excess ABG Hemoglobin Oxyhemoglobin Sodium Potassium Chloride Carbon Dioxide BUN Creatinine Glucose POC Glucose 113 H 143 H 145 H Lactic Acid Calcium Ionized Calcium Phosphorus Magnesium Total Bilirubin AST ALT Alkaline Phosphatase Ammonia Total Creatine Kinase CK-MB (CK-2) CK-MB (CK-2) Rel Index Total Protein Albumin Urine WBC (Auto) Vancomycin Trough Salicylates Acetaminophen Plasma/Serum Alcohol Crossmatch 12/01/19 12/01/19 12/01/19 05:33 08:23 08:23 WBC 22.7 H RBC 2.88 L Hgb 7.9 L Hct 25.2 L MCH 27 L RDW 21.0 H Plt Count 732 H Lymph % (Auto) [place] % (Auto) [place] # Seg Neutrophils % Seg Neuts % (Manual) 91.0 H Lymphocytes % (Manual) 3.0 L Monocytes % (Manual) Seg Neutrophils # Seg Neutrophils # Man 20.7 H Lymphocytes # (Manual) 0.7 L Monocytes # (Manual) 1.1 H Eosinophils # (Manual) Basophils # (Manual) PT INR APTT ABG pH ABG pO2 68.6 L ABG HCO3 34.1 H ABG O2 Saturation ABG Base Excess 9.0 H ABG Hemoglobin 6.5 L Oxyhemoglobin 94.7 L Sodium Potassium Chloride Carbon Dioxide BUN Creatinine 0.5 L Glucose 125 H POC Glucose Lactic Acid Calcium Ionized Calcium Phosphorus Magnesium Total Bilirubin AST ALT Alkaline Phosphatase Ammonia Total Creatine Kinase CK-MB (CK-2) CK-MB (CK-2) Rel Index Total Protein Albumin Urine WBC (Auto) Vancomycin Trough Salicylates Acetaminophen Plasma/Serum Alcohol Crossmatch 12/01/19 12/01/19 12/01/19 13:21 17:54 20:59 WBC RBC Hgb Hct MCH RDW Plt Count Lymph % (Auto) [place] % (Auto) [place] # Seg Neutrophils % Seg Neuts % (Manual) Lymphocytes % (Manual) Monocytes % (Manual) Seg Neutrophils # Seg Neutrophils # Man Lymphocytes # (Manual) Monocytes # (Manual) Eosinophils # (Manual) Basophils # (Manual) PT INR APTT ABG pH ABG pO2 78.3 L ABG HCO3 33.8 H ABG O2 Saturation 94.9 L ABG Base Excess 7.9 H ABG Hemoglobin 11.5 L Oxyhemoglobin 92.3 L Sodium Potassium Chloride Carbon Dioxide BUN Creatinine Glucose POC Glucose 111 H 115 H Lactic Acid Calcium Ionized Calcium Phosphorus Magnesium Total Bilirubin AST ALT Alkaline Phosphatase Ammonia Total Creatine Kinase CK-MB (CK-2) CK-MB (CK-2) Rel Index Total Protein Albumin Urine WBC (Auto) Vancomycin Trough Salicylates Acetaminophen Plasma/Serum Alcohol Crossmatch 12/02/19 12/03/19 12/04/19 12:55 20:00 04:26 WBC 15.2 H RBC 2.69 L Hgb 7.4 L Hct 23.6 L MCH 27 L RDW 19.9 H Plt Count 838 H Lymph % (Auto) [place] % (Auto) [place] # Seg Neutrophils % Seg Neuts % (Manual) Lymphocytes % (Manual) Monocytes % (Manual) Seg Neutrophils # Seg Neutrophils # Man Lymphocytes # (Manual) Monocytes # (Manual) Eosinophils # (Manual) Basophils # (Manual) PT INR APTT ABG pH ABG pO2 68.3 L ABG HCO3 33.5 H ABG O2 Saturation 93.5 L ABG Base Excess 8.4 H ABG Hemoglobin 7.3 L Oxyhemoglobin 90.9 L Sodium Potassium Chloride Carbon Dioxide BUN Creatinine Glucose POC Glucose 107 H Lactic Acid Calcium Ionized Calcium Phosphorus Magnesium Total Bilirubin AST ALT Alkaline Phosphatase Ammonia Total Creatine Kinase CK-MB (CK-2) CK-MB (CK-2) Rel Index Total Protein Albumin Urine WBC (Auto) Vancomycin Trough Salicylates Acetaminophen Plasma/Serum Alcohol Crossmatch 12/04/19 12/04/19 12/04/19 04:26 07:45 12:02 WBC 15.9 H RBC 2.88 L Hgb 7.9 L Hct 25.1 L MCH RDW 20.4 H Plt Count 839 H Lymph % (Auto) 11.3 L [place] % (Auto) 15.2 H [place] # 2.4 H Seg Neutrophils % 72.4 H Seg Neuts % (Manual) Lymphocytes % (Manual) Monocytes % (Manual) Seg Neutrophils # 11.5 H Seg Neutrophils # Man Lymphocytes # (Manual) Monocytes # (Manual) Eosinophils # (Manual) Basophils # (Manual) PT INR APTT ABG pH ABG pO2 ABG HCO3 ABG O2 Saturation ABG Base Excess ABG Hemoglobin Oxyhemoglobin Sodium Potassium Chloride 96.5 L Carbon Dioxide BUN 21 H Creatinine 0.6 L Glucose 107 H POC Glucose 138 H Lactic Acid Calcium Ionized Calcium Phosphorus Magnesium Total Bilirubin AST ALT Alkaline Phosphatase Ammonia Total Creatine Kinase CK-MB (CK-2) CK-MB (CK-2) Rel Index Total Protein Albumin Urine WBC (Auto) Vancomycin Trough Salicylates Acetaminophen Plasma/Serum Alcohol Crossmatch 12/04/19 12/05/19 12/05/19 18:16 11:55 18:36 WBC RBC Hgb Hct MCH RDW Plt Count Lymph % (Auto) [place] % (Auto) [place] # Seg Neutrophils % Seg Neuts % (Manual) Lymphocytes % (Manual) Monocytes % (Manual) Seg Neutrophils # Seg Neutrophils # Man Lymphocytes # (Manual) Monocytes # (Manual) Eosinophils # (Manual) Basophils # (Manual) PT INR APTT ABG pH ABG pO2 ABG HCO3 ABG O2 Saturation ABG Base Excess ABG Hemoglobin Oxyhemoglobin Sodium Potassium Chloride Carbon Dioxide BUN Creatinine Glucose POC Glucose 135 H 125 H 135 H Lactic Acid Calcium Ionized Calcium Phosphorus Magnesium Total Bilirubin AST ALT Alkaline Phosphatase Ammonia Total Creatine Kinase CK-MB (CK-2) CK-MB (CK-2) Rel Index Total Protein Albumin Urine WBC (Auto) Vancomycin Trough Salicylates Acetaminophen Plasma/Serum Alcohol Crossmatch 12/05/19 12/06/19 12/06/19 23:30 04:14 05:43 WBC RBC Hgb Hct MCH RDW Plt Count Lymph % (Auto) [place] % (Auto) [place] # Seg Neutrophils % Seg Neuts % (Manual) Lymphocytes % (Manual) Monocytes % (Manual) Seg Neutrophils # Seg Neutrophils # Man Lymphocytes # (Manual) Monocytes # (Manual) Eosinophils # (Manual) Basophils # (Manual) PT INR APTT ABG pH ABG pO2 ABG HCO3 ABG O2 Saturation ABG Base Excess ABG Hemoglobin Oxyhemoglobin Sodium Potassium 5.6 H Chloride 95.0 L Carbon Dioxide BUN 48 H Creatinine 1.3 H D Glucose POC Glucose 126 H 121 H Lactic Acid Calcium Ionized Calcium Phosphorus Magnesium Total Bilirubin AST 89 H ALT 98 H Alkaline Phosphatase 476 H Ammonia Total Creatine Kinase CK-MB (CK-2) CK-MB (CK-2) Rel Index Total Protein Albumin 2.8 L Urine WBC (Auto) Vancomycin Trough Salicylates Acetaminophen Plasma/Serum Alcohol Crossmatch 12/06/19 12/06/19 12/07/19 10:39 14:34 00:19 WBC 17.3 H RBC 2.60 L Hgb 7.1 L Hct 22.7 L MCH 27 L RDW 20.1 H Plt Count 832 H Lymph % (Auto) [place] % (Auto) [place] # Seg Neutrophils % Seg Neuts % (Manual) Lymphocytes % (Manual) Monocytes % (Manual) Seg Neutrophils # Seg Neutrophils # Man Lymphocytes # (Manual) Monocytes # (Manual) Eosinophils # (Manual) Basophils # (Manual) PT INR APTT ABG pH ABG pO2 ABG HCO3 ABG O2 Saturation ABG Base Excess ABG Hemoglobin Oxyhemoglobin Sodium Potassium Chloride Carbon Dioxide BUN Creatinine Glucose POC Glucose 128 H 136 H Lactic Acid Calcium Ionized Calcium Phosphorus Magnesium Total Bilirubin AST ALT Alkaline Phosphatase Ammonia Total Creatine Kinase CK-MB (CK-2) CK-MB (CK-2) Rel Index Total Protein Albumin Urine WBC (Auto) Vancomycin Trough Salicylates Acetaminophen Plasma/Serum Alcohol Crossmatch 12/07/19 12/07/19 12/07/19 03:44 03:44 05:53 WBC 16.2 H RBC 2.56 L Hgb 7.1 L Hct 22.3 L MCH RDW 19.4 H Plt Count 782 H Lymph % (Auto) [place] % (Auto) [place] # Seg Neutrophils % Seg Neuts % (Manual) Lymphocytes % (Manual) Monocytes % (Manual) Seg Neutrophils # Seg Neutrophils # Man Lymphocytes # (Manual) Monocytes # (Manual) Eosinophils # (Manual) Basophils # (Manual) PT INR APTT ABG pH ABG pO2 ABG HCO3 ABG O2 Saturation ABG Base Excess ABG Hemoglobin Oxyhemoglobin Sodium Potassium Chloride 95.6 L Carbon Dioxide BUN 56 H Creatinine 1.4 H Glucose 120 H POC Glucose 128 H Lactic Acid Calcium 10.3 H Ionized Calcium Phosphorus Magnesium Total Bilirubin AST ALT Alkaline Phosphatase Ammonia Total Creatine Kinase CK-MB (CK-2) CK-MB (CK-2) Rel Index Total Protein Albumin Urine WBC (Auto) Vancomycin Trough Salicylates Acetaminophen Plasma/Serum Alcohol Crossmatch 12/07/19 12/07/19 12/08/19 12:54 23:47 00:20 WBC RBC Hgb Hct MCH RDW Plt Count Lymph % (Auto) [place] % (Auto) [place] # Seg Neutrophils % Seg Neuts % (Manual) Lymphocytes % (Manual) Monocytes % (Manual) Seg Neutrophils # Seg Neutrophils # Man Lymphocytes # (Manual) Monocytes # (Manual) Eosinophils # (Manual) Basophils # (Manual) PT INR APTT ABG pH ABG pO2 ABG HCO3 ABG O2 Saturation ABG Base Excess ABG Hemoglobin Oxyhemoglobin Sodium Potassium Chloride Carbon Dioxide BUN Creatinine Glucose POC Glucose 128 H 130 H 124 H Lactic Acid Calcium Ionized Calcium Phosphorus Magnesium Total Bilirubin AST ALT Alkaline Phosphatase Ammonia Total Creatine Kinase CK-MB (CK-2) CK-MB (CK-2) Rel Index Total Protein Albumin Urine WBC (Auto) Vancomycin Trough Salicylates Acetaminophen Plasma/Serum Alcohol Crossmatch 12/08/19 12/08/19 12/08/19 06:38 12:04 18:26 WBC RBC Hgb Hct MCH RDW Plt Count Lymph % (Auto) [place] % (Auto) [place] # Seg Neutrophils % Seg Neuts % (Manual) Lymphocytes % (Manual) Monocytes % (Manual) Seg Neutrophils # Seg Neutrophils # Man Lymphocytes # (Manual) Monocytes # (Manual) Eosinophils # (Manual) Basophils # (Manual) PT INR APTT ABG pH ABG pO2 ABG HCO3 ABG O2 Saturation ABG Base Excess ABG Hemoglobin Oxyhemoglobin Sodium Potassium Chloride Carbon Dioxide BUN Creatinine Glucose POC Glucose 137 H 129 H 150 H Lactic Acid Calcium Ionized Calcium Phosphorus Magnesium Total Bilirubin AST ALT Alkaline Phosphatase Ammonia Total Creatine Kinase CK-MB (CK-2) CK-MB (CK-2) Rel Index Total Protein Albumin Urine WBC (Auto) Vancomycin Trough Salicylates Acetaminophen Plasma/Serum Alcohol Crossmatch 12/09/19 12/09/19 12/09/19 00:56 05:34 06:13 WBC RBC Hgb Hct MCH RDW Plt Count Lymph % (Auto) [place] % (Auto) [place] # Seg Neutrophils % Seg Neuts % (Manual) Lymphocytes % (Manual) Monocytes % (Manual) Seg Neutrophils # Seg Neutrophils # Man Lymphocytes # (Manual) Monocytes # (Manual) Eosinophils # (Manual) Basophils # (Manual) PT INR APTT ABG pH ABG pO2 ABG HCO3 ABG O2 Saturation ABG Base Excess ABG Hemoglobin Oxyhemoglobin Sodium 146 H Potassium Chloride Carbon Dioxide BUN 66 H Creatinine 1.9 H Glucose 116 H POC Glucose 130 H 130 H Lactic Acid Calcium Ionized Calcium Phosphorus Magnesium Total Bilirubin AST ALT Alkaline Phosphatase Ammonia Total Creatine Kinase CK-MB (CK-2) CK-MB (CK-2) Rel Index Total Protein Albumin Urine WBC (Auto) Vancomycin Trough Salicylates Acetaminophen Plasma/Serum Alcohol Crossmatch 12/09/19 12/09/19 12/10/19 11:52 17:50 00:14 WBC RBC Hgb Hct MCH RDW Plt Count Lymph % (Auto) [place] % (Auto) [place] # Seg Neutrophils % Seg Neuts % (Manual) Lymphocytes % (Manual) Monocytes % (Manual) Seg Neutrophils # Seg Neutrophils # Man Lymphocytes # (Manual) Monocytes # (Manual) Eosinophils # (Manual) Basophils # (Manual) PT INR APTT ABG pH ABG pO2 ABG HCO3 ABG O2 Saturation ABG Base Excess ABG Hemoglobin Oxyhemoglobin Sodium Potassium Chloride Carbon Dioxide BUN Creatinine Glucose POC Glucose 135 H 120 H 116 H Lactic Acid Calcium Ionized Calcium Phosphorus Magnesium Total Bilirubin AST ALT Alkaline Phosphatase Ammonia Total Creatine Kinase CK-MB (CK-2) CK-MB (CK-2) Rel Index Total Protein Albumin Urine WBC (Auto) Vancomycin Trough Salicylates Acetaminophen Plasma/Serum Alcohol Crossmatch 12/10/19 12/10/19 12/10/19 05:38 11:38 17:34 WBC RBC Hgb Hct MCH RDW Plt Count Lymph % (Auto) [place] % (Auto) [place] # Seg Neutrophils % Seg Neuts % (Manual) Lymphocytes % (Manual) Monocytes % (Manual) Seg Neutrophils # Seg Neutrophils # Man Lymphocytes # (Manual) Monocytes # (Manual) Eosinophils # (Manual) Basophils # (Manual) PT INR APTT ABG pH ABG pO2 ABG HCO3 ABG O2 Saturation ABG Base Excess ABG Hemoglobin Oxyhemoglobin Sodium Potassium Chloride Carbon Dioxide BUN Creatinine Glucose POC Glucose 115 H 112 H 130 H Lactic Acid Calcium Ionized Calcium Phosphorus Magnesium Total Bilirubin AST ALT Alkaline Phosphatase Ammonia Total Creatine Kinase CK-MB (CK-2) CK-MB (CK-2) Rel Index Total Protein Albumin Urine WBC (Auto) Vancomycin Trough Salicylates Acetaminophen Plasma/Serum Alcohol Crossmatch 12/11/19 12/11/19 12/11/19 00:20 05:31 12:22 WBC RBC Hgb Hct MCH RDW Plt Count Lymph % (Auto) [place] % (Auto) [place] # Seg Neutrophils % Seg Neuts % (Manual) Lymphocytes % (Manual) Monocytes % (Manual) Seg Neutrophils # Seg Neutrophils # Man Lymphocytes # (Manual) Monocytes # (Manual) Eosinophils # (Manual) Basophils # (Manual) PT INR APTT ABG pH ABG pO2 ABG HCO3 ABG O2 Saturation ABG Base Excess ABG Hemoglobin Oxyhemoglobin Sodium Potassium Chloride Carbon Dioxide BUN Creatinine Glucose POC Glucose 124 H 132 H 128 H Lactic Acid Calcium Ionized Calcium Phosphorus Magnesium Total Bilirubin AST ALT Alkaline Phosphatase Ammonia Total Creatine Kinase CK-MB (CK-2) CK-MB (CK-2) Rel Index Total Protein Albumin Urine WBC (Auto) Vancomycin Trough Salicylates Acetaminophen Plasma/Serum Alcohol Crossmatch 12/11/19 12/11/19 12/12/19 18:04 23:42 03:51 WBC RBC Hgb Hct MCH RDW Plt Count Lymph % (Auto) [place] % (Auto) [place] # Seg Neutrophils % Seg Neuts % (Manual) Lymphocytes % (Manual) Monocytes % (Manual) Seg Neutrophils # Seg Neutrophils # Man Lymphocytes # (Manual) Monocytes # (Manual) Eosinophils # (Manual) Basophils # (Manual) PT INR APTT ABG pH ABG pO2 ABG HCO3 ABG O2 Saturation ABG Base Excess ABG Hemoglobin Oxyhemoglobin Sodium 149 H Potassium Chloride Carbon Dioxide 20 L D BUN 77 H Creatinine 2.8 H Glucose POC Glucose 133 H 154 H Lactic Acid Calcium Ionized Calcium Phosphorus Magnesium Total Bilirubin AST ALT Alkaline Phosphatase Ammonia Total Creatine Kinase CK-MB (CK-2) CK-MB (CK-2) Rel Index Total Protein Albumin Urine WBC (Auto) Vancomycin Trough Salicylates Acetaminophen Plasma/Serum Alcohol Crossmatch 12/12/19 12/12/19 12/12/19 05:18 05:26 10:30 WBC 18.0 H RBC 2.51 L Hgb 6.8 L Hct 22.0 L MCH 27 L RDW 19.9 H Plt Count 582 H Lymph % (Auto) [place] % (Auto) [place] # Seg Neutrophils % Seg Neuts % (Manual) Lymphocytes % (Manual) Monocytes % (Manual) Seg Neutrophils # Seg Neutrophils # Man Lymphocytes # (Manual) Monocytes # (Manual) Eosinophils # (Manual) Basophils # (Manual) PT INR APTT ABG pH ABG pO2 ABG HCO3 ABG O2 Saturation ABG Base Excess ABG Hemoglobin Oxyhemoglobin Sodium Potassium Chloride Carbon Dioxide BUN Creatinine Glucose POC Glucose 135 H Lactic Acid Calcium Ionized Calcium Phosphorus Magnesium Total Bilirubin AST ALT Alkaline Phosphatase Ammonia Total Creatine Kinase CK-MB (CK-2) CK-MB (CK-2) Rel Index Total Protein Albumin Urine WBC (Auto) Vancomycin Trough Salicylates Acetaminophen Plasma/Serum Alcohol Crossmatch See Detail 12/12/19 12/12/19 12/12/19 11:44 18:10 23:21 WBC RBC Hgb Hct MCH RDW Plt Count Lymph % (Auto) [place] % (Auto) [place] # Seg Neutrophils % Seg Neuts % (Manual) Lymphocytes % (Manual) Monocytes % (Manual) Seg Neutrophils # Seg Neutrophils # Man Lymphocytes # (Manual) Monocytes # (Manual) Eosinophils # (Manual) Basophils # (Manual) PT INR APTT ABG pH ABG pO2 ABG HCO3 ABG O2 Saturation ABG Base Excess ABG Hemoglobin Oxyhemoglobin Sodium Potassium Chloride Carbon Dioxide BUN Creatinine Glucose POC Glucose 108 H 107 H 126 H Lactic Acid Calcium Ionized Calcium Phosphorus Magnesium Total Bilirubin AST ALT Alkaline Phosphatase Ammonia Total Creatine Kinase CK-MB (CK-2) CK-MB (CK-2) Rel Index Total Protein Albumin Urine WBC (Auto) Vancomycin Trough Salicylates Acetaminophen Plasma/Serum Alcohol Crossmatch 12/13/19 12/13/19 12/13/19 05:41 07:48 07:48 WBC 38.3 H RBC 2.37 L Hgb 6.3 L Hct 20.9 L MCH 27 L RDW 20.2 H Plt Count 546 H Lymph % (Auto) [place] % (Auto) [place] # Seg Neutrophils % Seg Neuts % (Manual) 93.0 H Lymphocytes % (Manual) 1.0 L Monocytes % (Manual) Seg Neutrophils # Seg Neutrophils # Man 35.6 H Lymphocytes # (Manual) 0.4 L Monocytes # (Manual) Eosinophils # (Manual) Basophils # (Manual) 0.4 H PT INR APTT ABG pH ABG pO2 ABG HCO3 ABG O2 Saturation ABG Base Excess ABG Hemoglobin Oxyhemoglobin Sodium 152 H Potassium 3.1 L D Chloride 111.9 H Carbon Dioxide 21 L BUN 53 H Creatinine 1.9 H Glucose 141 H POC Glucose 128 H Lactic Acid Calcium Ionized Calcium Phosphorus Magnesium Total Bilirubin AST ALT Alkaline Phosphatase 316 H Ammonia Total Creatine Kinase CK-MB (CK-2) CK-MB (CK-2) Rel Index Total Protein Albumin 2.4 L Urine WBC (Auto) Vancomycin Trough Salicylates Acetaminophen Plasma/Serum Alcohol Crossmatch 12/13/19 12/13/19 12/14/19 18:17 23:19 05:36 WBC RBC Hgb Hct MCH RDW Plt Count Lymph % (Auto) [place] % (Auto) [place] # Seg Neutrophils % Seg Neuts % (Manual) Lymphocytes % (Manual) Monocytes % (Manual) Seg Neutrophils # Seg Neutrophils # Man Lymphocytes # (Manual) Monocytes # (Manual) Eosinophils # (Manual) Basophils # (Manual) PT INR APTT ABG pH ABG pO2 ABG HCO3 ABG O2 Saturation ABG Base Excess ABG Hemoglobin Oxyhemoglobin Sodium Potassium Chloride Carbon Dioxide BUN Creatinine Glucose POC Glucose 141 H 158 H 182 H Lactic Acid Calcium Ionized Calcium Phosphorus Magnesium Total Bilirubin AST ALT Alkaline Phosphatase Ammonia Total Creatine Kinase CK-MB (CK-2) CK-MB (CK-2) Rel Index Total Protein Albumin Urine WBC (Auto) Vancomycin Trough Salicylates Acetaminophen Plasma/Serum Alcohol Crossmatch 12/14/19 12/14/19 12/14/19 08:48 08:48 10:31 WBC 33.3 H RBC 2.70 L Hgb 7.9 L 8.0 L Hct 25.3 L 24.0 L MCH RDW 19.2 H Plt Count 476 H Lymph % (Auto) [place] % (Auto) [place] # Seg Neutrophils % Seg Neuts % (Manual) Lymphocytes % (Manual) Monocytes % (Manual) Seg Neutrophils # Seg Neutrophils # Man Lymphocytes # (Manual) Monocytes # (Manual) Eosinophils # (Manual) Basophils # (Manual) PT INR APTT ABG pH ABG pO2 ABG HCO3 ABG O2 Saturation ABG Base Excess ABG Hemoglobin Oxyhemoglobin Sodium 153 H Potassium 2.5 L* Chloride 114.9 H Carbon Dioxide 20 L BUN 38 H Creatinine 1.4 H Glucose 177 H POC Glucose Lactic Acid Calcium Ionized Calcium Phosphorus Magnesium Total Bilirubin AST ALT Alkaline Phosphatase Ammonia Total Creatine Kinase CK-MB (CK-2) CK-MB (CK-2) Rel Index Total Protein Albumin Urine WBC (Auto) Vancomycin Trough Salicylates Acetaminophen Plasma/Serum Alcohol Crossmatch 12/14/19 12/14/19 12/14/19 12:57 16:15 17:50 WBC RBC Hgb Hct MCH RDW Plt Count Lymph % (Auto) [place] % (Auto) [place] # Seg Neutrophils % Seg Neuts % (Manual) Lymphocytes % (Manual) Monocytes % (Manual) Seg Neutrophils # Seg Neutrophils # Man Lymphocytes # (Manual) Monocytes # (Manual) Eosinophils # (Manual) Basophils # (Manual) PT INR APTT ABG pH ABG pO2 73.6 L ABG HCO3 ABG O2 Saturation ABG Base Excess ABG Hemoglobin 7.6 L Oxyhemoglobin 94.0 L Sodium Potassium Chloride Carbon Dioxide BUN Creatinine Glucose POC Glucose 174 H 150 H Lactic Acid Calcium Ionized Calcium Phosphorus Magnesium Total Bilirubin AST ALT Alkaline Phosphatase Ammonia Total Creatine Kinase CK-MB (CK-2) CK-MB (CK-2) Rel Index Total Protein Albumin Urine WBC (Auto) Vancomycin Trough Salicylates Acetaminophen Plasma/Serum Alcohol Crossmatch 12/15/19 12/15/19 12/15/19 00:28 05:27 07:23 WBC 30.0 H RBC 3.11 L Hgb 8.6 L Hct 27.7 L MCH RDW 20.0 H Plt Count 473 H Lymph % (Auto) [place] % (Auto) [place] # Seg Neutrophils % Seg Neuts % (Manual) Lymphocytes % (Manual) Monocytes % (Manual) Seg Neutrophils # Seg Neutrophils # Man Lymphocytes # (Manual) Monocytes # (Manual) Eosinophils # (Manual) Basophils # (Manual) PT INR APTT ABG pH ABG pO2 ABG HCO3 ABG O2 Saturation ABG Base Excess ABG Hemoglobin Oxyhemoglobin Sodium Potassium Chloride Carbon Dioxide BUN Creatinine Glucose POC Glucose 167 H 148 H Lactic Acid Calcium Ionized Calcium Phosphorus Magnesium Total Bilirubin AST ALT Alkaline Phosphatase Ammonia Total Creatine Kinase CK-MB (CK-2) CK-MB (CK-2) Rel Index Total Protein Albumin Urine WBC (Auto) Vancomycin Trough Salicylates Acetaminophen Plasma/Serum Alcohol Crossmatch 12/15/19 12/15/19 12/15/19 07:23 12:21 17:41 WBC RBC Hgb Hct MCH RDW Plt Count Lymph % (Auto) [place] % (Auto) [place] # Seg Neutrophils % Seg Neuts % (Manual) Lymphocytes % (Manual) Monocytes % (Manual) Seg Neutrophils # Seg Neutrophils # Man Lymphocytes # (Manual) Monocytes # (Manual) Eosinophils # (Manual) Basophils # (Manual) PT INR APTT ABG pH ABG pO2 ABG HCO3 ABG O2 Saturation ABG Base Excess ABG Hemoglobin Oxyhemoglobin Sodium 147 H Potassium 3.5 L D Chloride 111.2 H Carbon Dioxide 19 L BUN 29 H Creatinine Glucose 126 H POC Glucose 154 H 144 H Lactic Acid Calcium Ionized Calcium Phosphorus Magnesium Total Bilirubin AST ALT Alkaline Phosphatase Ammonia Total Creatine Kinase CK-MB (CK-2) CK-MB (CK-2) Rel Index Total Protein Albumin Urine WBC (Auto) Vancomycin Trough Salicylates Acetaminophen Plasma/Serum Alcohol Crossmatch 12/16/19 12/16/19 12/16/19 00:22 05:30 05:44 WBC 30.8 H RBC 2.58 L Hgb 7.1 L Hct 22.7 L MCH RDW 19.6 H Plt Count 451 H Lymph % (Auto) [place] % (Auto) [place] # Seg Neutrophils % Seg Neuts % (Manual) Lymphocytes % (Manual) Monocytes % (Manual) Seg Neutrophils # Seg Neutrophils # Man Lymphocytes # (Manual) Monocytes # (Manual) Eosinophils # (Manual) Basophils # (Manual) PT INR APTT ABG pH ABG pO2 ABG HCO3 ABG O2 Saturation ABG Base Excess ABG Hemoglobin Oxyhemoglobin Sodium Potassium Chloride Carbon Dioxide BUN Creatinine Glucose POC Glucose 139 H 126 H Lactic Acid Calcium Ionized Calcium Phosphorus Magnesium Total Bilirubin AST ALT Alkaline Phosphatase Ammonia Total Creatine Kinase CK-MB (CK-2) CK-MB (CK-2) Rel Index Total Protein Albumin Urine WBC (Auto) Vancomycin Trough Salicylates Acetaminophen Plasma/Serum Alcohol Crossmatch 12/16/19 12/16/19 12/16/19 05:44 11:48 17:37 WBC RBC Hgb Hct MCH RDW Plt Count Lymph % (Auto) [place] % (Auto) [place] # Seg Neutrophils % Seg Neuts % (Manual) Lymphocytes % (Manual) Monocytes % (Manual) Seg Neutrophils # Seg Neutrophils # Man Lymphocytes # (Manual) Monocytes # (Manual) Eosinophils # (Manual) Basophils # (Manual) PT INR APTT ABG pH ABG pO2 ABG HCO3 ABG O2 Saturation ABG Base Excess ABG Hemoglobin Oxyhemoglobin Sodium Potassium 3.4 L Chloride 109.2 H Carbon Dioxide 19 L BUN 27 H Creatinine Glucose 124 H POC Glucose 125 H 148 H Lactic Acid Calcium Ionized Calcium Phosphorus Magnesium Total Bilirubin AST ALT Alkaline Phosphatase Ammonia Total Creatine Kinase CK-MB (CK-2) CK-MB (CK-2) Rel Index Total Protein Albumin Urine WBC (Auto) Vancomycin Trough Salicylates Acetaminophen Plasma/Serum Alcohol Crossmatch 12/16/19 12/17/19 12/17/19 23:43 05:28 12:47 WBC RBC Hgb Hct MCH RDW Plt Count Lymph % (Auto) [place] % (Auto) [place] # Seg Neutrophils % Seg Neuts % (Manual) Lymphocytes % (Manual) Monocytes % (Manual) Seg Neutrophils # Seg Neutrophils # Man Lymphocytes # (Manual) Monocytes # (Manual) Eosinophils # (Manual) Basophils # (Manual) PT INR APTT ABG pH ABG pO2 ABG HCO3 ABG O2 Saturation ABG Base Excess ABG Hemoglobin Oxyhemoglobin Sodium Potassium Chloride Carbon Dioxide BUN Creatinine Glucose POC Glucose 142 H 140 H 125 H Lactic Acid Calcium Ionized Calcium Phosphorus Magnesium Total Bilirubin AST ALT Alkaline Phosphatase Ammonia Total Creatine Kinase CK-MB (CK-2) CK-MB (CK-2) Rel Index Total Protein Albumin Urine WBC (Auto) Vancomycin Trough Salicylates Acetaminophen Plasma/Serum Alcohol Crossmatch 12/17/19 12/17/19 12/17/19 17:05 18:00 Unknown WBC RBC Hgb Hct MCH RDW Plt Count Lymph % (Auto) [place] % (Auto) [place] # Seg Neutrophils % Seg Neuts % (Manual) Lymphocytes % (Manual) Monocytes % (Manual) Seg Neutrophils # Seg Neutrophils # Man Lymphocytes # (Manual) Monocytes # (Manual) Eosinophils # (Manual) Basophils # (Manual) PT INR APTT ABG pH ABG pO2 68.1 L ABG HCO3 ABG O2 Saturation 93.7 L ABG Base Excess ABG Hemoglobin 5.0 L Oxyhemoglobin 91.7 L Sodium Potassium Chloride Carbon Dioxide BUN Creatinine Glucose POC Glucose 140 H Lactic Acid Calcium Ionized Calcium Phosphorus Magnesium Total Bilirubin AST ALT Alkaline Phosphatase Ammonia Total Creatine Kinase CK-MB (CK-2) CK-MB (CK-2) Rel Index Total Protein Albumin Urine WBC (Auto) Vancomycin Trough Salicylates Acetaminophen Plasma/Serum Alcohol Crossmatch 12/18/19 12/18/19 12/18/19 00:16 04:53 04:53 WBC 28.6 H RBC 2.27 L Hgb 6.3 L Hct 19.5 L* MCH RDW 20.0 H Plt Count 497 H Lymph % (Auto) [place] % (Auto) [place] # Seg Neutrophils % Seg Neuts % (Manual) Lymphocytes % (Manual) Monocytes % (Manual) Seg Neutrophils # Seg Neutrophils # Man Lymphocytes # (Manual) Monocytes # (Manual) Eosinophils # (Manual) Basophils # (Manual) PT INR APTT ABG pH ABG pO2 ABG HCO3 ABG O2 Saturation ABG Base Excess ABG Hemoglobin Oxyhemoglobin Sodium Potassium Chloride 107.9 H Carbon Dioxide 20 L BUN 27 H Creatinine 0.6 L Glucose 116 H POC Glucose 123 H Lactic Acid Calcium Ionized Calcium Phosphorus Magnesium Total Bilirubin AST ALT Alkaline Phosphatase Ammonia Total Creatine Kinase CK-MB (CK-2) CK-MB (CK-2) Rel Index Total Protein Albumin Urine WBC (Auto) Vancomycin Trough Salicylates Acetaminophen Plasma/Serum Alcohol Crossmatch 12/18/19 12/18/19 12/18/19 06:38 11:22 12:08 WBC RBC Hgb Hct MCH RDW Plt Count Lymph % (Auto) [place] % (Auto) [place] # Seg Neutrophils % Seg Neuts % (Manual) Lymphocytes % (Manual) Monocytes % (Manual) Seg Neutrophils # Seg Neutrophils # Man Lymphocytes # (Manual) Monocytes # (Manual) Eosinophils # (Manual) Basophils # (Manual) PT INR APTT ABG pH ABG pO2 ABG HCO3 ABG O2 Saturation ABG Base Excess ABG Hemoglobin Oxyhemoglobin Sodium Potassium Chloride Carbon Dioxide BUN Creatinine Glucose POC Glucose 120 H 127 H Lactic Acid Calcium Ionized Calcium Phosphorus Magnesium Total Bilirubin AST ALT Alkaline Phosphatase Ammonia Total Creatine Kinase CK-MB (CK-2) CK-MB (CK-2) Rel Index Total Protein Albumin Urine WBC (Auto) Vancomycin Trough Salicylates Acetaminophen Plasma/Serum Alcohol Crossmatch See Detail 12/18/19 12/18/19 12/18/19 14:05 17:49 23:53 WBC RBC Hgb Hct MCH RDW Plt Count Lymph % (Auto) [place] % (Auto) [place] # Seg Neutrophils % Seg Neuts % (Manual) Lymphocytes % (Manual) Monocytes % (Manual) Seg Neutrophils # Seg Neutrophils # Man Lymphocytes # (Manual) Monocytes # (Manual) Eosinophils # (Manual) Basophils # (Manual) PT INR APTT ABG pH 7.267 L ABG pO2 69.8 L ABG HCO3 ABG O2 Saturation 88.4 L ABG Base Excess ABG Hemoglobin 7.1 L Oxyhemoglobin 86.4 L Sodium Potassium Chloride Carbon Dioxide BUN Creatinine Glucose POC Glucose 157 H 128 H Lactic Acid Calcium Ionized Calcium Phosphorus Magnesium Total Bilirubin AST ALT Alkaline Phosphatase Ammonia Total Creatine Kinase CK-MB (CK-2) CK-MB (CK-2) Rel Index Total Protein Albumin Urine WBC (Auto) Vancomycin Trough Salicylates Acetaminophen Plasma/Serum Alcohol Crossmatch 12/19/19 12/19/19 12/19/19 03:37 03:37 05:25 WBC 31.3 H RBC 2.60 L Hgb 7.6 L Hct 23.0 L MCH RDW 19.4 H Plt Count 530 H Lymph % (Auto) [place] % (Auto) [place] # Seg Neutrophils % Seg Neuts % (Manual) Lymphocytes % (Manual) Monocytes % (Manual) Seg Neutrophils # Seg Neutrophils # Man Lymphocytes # (Manual) Monocytes # (Manual) Eosinophils # (Manual) Basophils # (Manual) PT INR APTT ABG pH ABG pO2 ABG HCO3 ABG O2 Saturation ABG Base Excess ABG Hemoglobin Oxyhemoglobin Sodium Potassium Chloride Carbon Dioxide 18 L BUN 36 H Creatinine Glucose 111 H POC Glucose 123 H Lactic Acid Calcium Ionized Calcium Phosphorus Magnesium Total Bilirubin AST ALT Alkaline Phosphatase Ammonia Total Creatine Kinase CK-MB (CK-2) CK-MB (CK-2) Rel Index Total Protein Albumin Urine WBC (Auto) Vancomycin Trough Salicylates Acetaminophen Plasma/Serum Alcohol Crossmatch 12/19/19 12/19/19 12/20/19 12:59 18:33 00:00 WBC RBC Hgb Hct MCH RDW Plt Count Lymph % (Auto) [place] % (Auto) [place] # Seg Neutrophils % Seg Neuts % (Manual) Lymphocytes % (Manual) Monocytes % (Manual) Seg Neutrophils # Seg Neutrophils # Man Lymphocytes # (Manual) Monocytes # (Manual) Eosinophils # (Manual) Basophils # (Manual) PT INR APTT ABG pH ABG pO2 ABG HCO3 ABG O2 Saturation ABG Base Excess ABG Hemoglobin Oxyhemoglobin Sodium Potassium Chloride Carbon Dioxide BUN Creatinine Glucose POC Glucose 130 H 118 H 135 H Lactic Acid Calcium Ionized Calcium Phosphorus Magnesium Total Bilirubin AST ALT Alkaline Phosphatase Ammonia Total Creatine Kinase CK-MB (CK-2) CK-MB (CK-2) Rel Index Total Protein Albumin Urine WBC (Auto) Vancomycin Trough Salicylates Acetaminophen Plasma/Serum Alcohol Crossmatch 12/20/19 12/20/19 12/20/19 05:46 12:31 18:07 WBC RBC Hgb Hct MCH RDW Plt Count Lymph % (Auto) [place] % (Auto) [place] # Seg Neutrophils % Seg Neuts % (Manual) Lymphocytes % (Manual) Monocytes % (Manual) Seg Neutrophils # Seg Neutrophils # Man Lymphocytes # (Manual) Monocytes # (Manual) Eosinophils # (Manual) Basophils # (Manual) PT INR APTT ABG pH ABG pO2 ABG HCO3 ABG O2 Saturation ABG Base Excess ABG Hemoglobin Oxyhemoglobin Sodium Potassium Chloride Carbon Dioxide BUN Creatinine Glucose POC Glucose 131 H 128 H 134 H Lactic Acid Calcium Ionized Calcium Phosphorus Magnesium Total Bilirubin AST ALT Alkaline Phosphatase Ammonia Total Creatine Kinase CK-MB (CK-2) CK-MB (CK-2) Rel Index Total Protein Albumin Urine WBC (Auto) Vancomycin Trough Salicylates Acetaminophen Plasma/Serum Alcohol Crossmatch 12/21/19 12/21/19 12/21/19 03:28 03:28 07:21 WBC 29.4 H RBC 2.30 L Hgb 6.8 L Hct 20.2 L MCH RDW 20.2 H Plt Count 746 H Lymph % (Auto) [place] % (Auto) [place] # Seg Neutrophils % Seg Neuts % (Manual) 85.0 H Lymphocytes % (Manual) 8.0 L Monocytes % (Manual) Seg Neutrophils # Seg Neutrophils # Man 25.0 H Lymphocytes # (Manual) Monocytes # (Manual) 1.5 H Eosinophils # (Manual) 0.6 H Basophils # (Manual) PT INR APTT ABG pH ABG pO2 ABG HCO3 ABG O2 Saturation ABG Base Excess ABG Hemoglobin Oxyhemoglobin Sodium Potassium Chloride Carbon Dioxide 17 L BUN 57 H Creatinine 1.4 H D Glucose POC Glucose 124 H Lactic Acid Calcium Ionized Calcium Phosphorus Magnesium Total Bilirubin AST ALT Alkaline Phosphatase Ammonia Total Creatine Kinase CK-MB (CK-2) CK-MB (CK-2) Rel Index Total Protein Albumin Urine WBC (Auto) Vancomycin Trough Salicylates Acetaminophen Plasma/Serum Alcohol Crossmatch 12/21/19 12/21/19 12/21/19 08:56 12:06 14:53 WBC RBC Hgb 7.2 L Hct 22.9 L MCH RDW Plt Count Lymph % (Auto) [place] % (Auto) [place] # Seg Neutrophils % Seg Neuts % (Manual) Lymphocytes % (Manual) Monocytes % (Manual) Seg Neutrophils # Seg Neutrophils # Man Lymphocytes # (Manual) Monocytes # (Manual) Eosinophils # (Manual) Basophils # (Manual) PT INR APTT ABG pH ABG pO2 ABG HCO3 ABG O2 Saturation ABG Base Excess ABG Hemoglobin Oxyhemoglobin Sodium Potassium Chloride Carbon Dioxide BUN Creatinine Glucose POC Glucose 116 H Lactic Acid Calcium Ionized Calcium Phosphorus Magnesium Total Bilirubin AST ALT Alkaline Phosphatase Ammonia Total Creatine Kinase CK-MB (CK-2) CK-MB (CK-2) Rel Index Total Protein Albumin Urine WBC (Auto) Vancomycin Trough 33.8 H Salicylates Acetaminophen Plasma/Serum Alcohol Crossmatch 12/21/19 12/21/19 12/21/19 14:54 17:27 23:49 WBC RBC Hgb Hct MCH RDW Plt Count Lymph % (Auto) [place] % (Auto) [place] # Seg Neutrophils % Seg Neuts % (Manual) Lymphocytes % (Manual) Monocytes % (Manual) Seg Neutrophils # Seg Neutrophils # Man Lymphocytes # (Manual) Monocytes # (Manual) Eosinophils # (Manual) Basophils # (Manual) PT INR APTT ABG pH ABG pO2 ABG HCO3 ABG O2 Saturation ABG Base Excess ABG Hemoglobin Oxyhemoglobin Sodium Potassium Chloride Carbon Dioxide BUN Creatinine Glucose POC Glucose 145 H 127 H Lactic Acid Calcium Ionized Calcium Phosphorus Magnesium Total Bilirubin AST ALT Alkaline Phosphatase Ammonia Total Creatine Kinase CK-MB (CK-2) CK-MB (CK-2) Rel Index Total Protein Albumin Urine WBC (Auto) Vancomycin Trough Salicylates Acetaminophen Plasma/Serum Alcohol Crossmatch See Detail 12/22/19 12/22/19 12/22/19 04:43 05:56 08:40 WBC RBC Hgb Hct MCH RDW Plt Count Lymph % (Auto) [place] % (Auto) [place] # Seg Neutrophils % Seg Neuts % (Manual) Lymphocytes % (Manual) Monocytes % (Manual) Seg Neutrophils # Seg Neutrophils # Man Lymphocytes # (Manual) Monocytes # (Manual) Eosinophils # (Manual) Basophils # (Manual) PT INR APTT ABG pH ABG pO2 75.6 L ABG HCO3 ABG O2 Saturation ABG Base Excess -2.6 L ABG Hemoglobin 6.8 L Oxyhemoglobin 94.6 L Sodium Potassium Chloride Carbon Dioxide 17 L BUN 60 H Creatinine 1.4 H Glucose 126 H POC Glucose 153 H Lactic Acid Calcium Ionized Calcium Phosphorus Magnesium Total Bilirubin AST ALT Alkaline Phosphatase Ammonia Total Creatine Kinase CK-MB (CK-2) CK-MB (CK-2) Rel Index Total Protein Albumin Urine WBC (Auto) Vancomycin Trough Salicylates Acetaminophen Plasma/Serum Alcohol Crossmatch 12/22/19 12/22/19 12/23/19 12:07 17:49 04:30 WBC 22.4 H RBC 2.68 L Hgb 7.6 L Hct 22.9 L MCH RDW 19.9 H Plt Count 998 H Lymph % (Auto) [place] % (Auto) [place] # Seg Neutrophils % Seg Neuts % (Manual) 88.0 H Lymphocytes % (Manual) 2.0 L Monocytes % (Manual) 9.0 H Seg Neutrophils # Seg Neutrophils # Man 19.7 H Lymphocytes # (Manual) 0.4 L Monocytes # (Manual) 2.0 H Eosinophils # (Manual) Basophils # (Manual) PT INR APTT ABG pH ABG pO2 ABG HCO3 ABG O2 Saturation ABG Base Excess ABG Hemoglobin Oxyhemoglobin Sodium Potassium Chloride Carbon Dioxide BUN Creatinine Glucose POC Glucose 140 H 116 H Lactic Acid Calcium Ionized Calcium Phosphorus Magnesium Total Bilirubin AST ALT Alkaline Phosphatase Ammonia Total Creatine Kinase CK-MB (CK-2) CK-MB (CK-2) Rel Index Total Protein Albumin Urine WBC (Auto) Vancomycin Trough Salicylates Acetaminophen Plasma/Serum Alcohol Crossmatch 12/23/19 12/23/19 12/23/19 04:30 12:00 18:06 WBC RBC Hgb Hct MCH RDW Plt Count Lymph % (Auto) [place] % (Auto) [place] # Seg Neutrophils % Seg Neuts % (Manual) Lymphocytes % (Manual) Monocytes % (Manual) Seg Neutrophils # Seg Neutrophils # Man Lymphocytes # (Manual) Monocytes # (Manual) Eosinophils # (Manual) Basophils # (Manual) PT INR APTT ABG pH ABG pO2 ABG HCO3 ABG O2 Saturation ABG Base Excess ABG Hemoglobin Oxyhemoglobin Sodium Potassium 5.2 H Chloride Carbon Dioxide 21 L BUN 69 H Creatinine 1.5 H Glucose 117 H POC Glucose 128 H 138 H Lactic Acid Calcium Ionized Calcium Phosphorus Magnesium Total Bilirubin AST ALT Alkaline Phosphatase Ammonia Total Creatine Kinase CK-MB (CK-2) CK-MB (CK-2) Rel Index Total Protein Albumin Urine WBC (Auto) Vancomycin Trough Salicylates Acetaminophen Plasma/Serum Alcohol Crossmatch 12/23/19 12/24/19 12/24/19 23:46 04:31 05:08 WBC RBC Hgb Hct MCH RDW Plt Count Lymph % (Auto) [place] % (Auto) [place] # Seg Neutrophils % Seg Neuts % (Manual) Lymphocytes % (Manual) Monocytes % (Manual) Seg Neutrophils # Seg Neutrophils # Man Lymphocytes # (Manual) Monocytes # (Manual) Eosinophils # (Manual) Basophils # (Manual) PT INR APTT ABG pH ABG pO2 ABG HCO3 ABG O2 Saturation ABG Base Excess ABG Hemoglobin Oxyhemoglobin Sodium Potassium 5.3 H Chloride 107.6 H Carbon Dioxide 20 L BUN 72 H Creatinine 1.6 H Glucose 120 H POC Glucose 120 H 140 H Lactic Acid Calcium Ionized Calcium Phosphorus Magnesium Total Bilirubin AST ALT Alkaline Phosphatase Ammonia Total Creatine Kinase CK-MB (CK-2) CK-MB (CK-2) Rel Index Total Protein Albumin Urine WBC (Auto) Vancomycin Trough Salicylates Acetaminophen Plasma/Serum Alcohol Crossmatch Allied health notes reviewed: RT
[2019-12-24] MEDS: LACTULOSE 20 GM/30 ML ORAL LIQD PO SCH ×2 (09:43→21:29)
[2019-12-24] MEDS: levETIRAcetam 500 MG/5 ML ORAL LIQD PO SCH ×2 (09:44→21:29)
[2019-12-24] MEDS: chlordiazePOXIDE 25 MG CAP PO SCH (09:44)
[2019-12-24] MEDS: QUEtiapine 200 MG TAB PO SCH (09:45)
[2019-12-24] MEDS: LANSOPRAZOLE 30 MG SOLUTAB FEEDTUBE SCH (09:45)
[2019-12-24] MEDS: MIRTAZAPINE 30 MG TAB PO SCH (09:46)
[2019-12-24] MEDS: hydrOXYzine PAMOATE 25 MG CAP PO SCH ×2 (09:46→21:29)
[2019-12-24] MEDS: TAMSULOSIN 0.4 MG CAP PO SCH (09:46)
[2019-12-24] MEDS: SERTRALINE 25 MG TAB PO SCH (09:47)
[2019-12-24] MEDS ORDERED: SCOPOLAMINE TRANSDERMAL PATCH 72 HR TD SCH (11:00)
[2019-12-24] MEDS ORDERED: SODIUM POLYSTYRENE 15 GM/60 ML ORAL LIQD PO ONE (11:00)
--- NOTE | 2019-12-24 13:27 | Progress Note ---
Assessment and Plan /Anemia, microcytic -Continue to hold heparin, transfused 2 units of packed RBC -ordered stool for occult blood - pending /Acute metabolic encephalopathy/toxic encephalopathy due to the above - cont supportive care / Anoxic brain injury: suspected CT head: No acute abnormality. neurology consult placed, EEG ordered showed Generalized slowing. No seizures or epileptiform activity. Per neurology : Patient found to have intact corneal/VOR/cough reflexes, and is withdrawing lower extremities, therefore patient is not found to be brain . However, given that patient had an out of hospital cardiac arrest, the time of which is uncertain, the likelihood of meaningful neurological recovery is somewhat low. /Acute Respiratory failure -s/p intubation, s/p trach and PEG on 12/12 with mechanical ventilation - CTA was done and negative for PE, - Echo quality is poor, showed diastolic dysfunction - continue ICU monitoring - wean OFF vent/O2 as tolerated /Hyperammonemia - likely from liver disease related to EtOH abuse - Patient had elevated ammonia level and treated with lactulose /Metabolic Acidosis -Alcohol ketoacidosis vs hypoprofusion -Continue to monitor /ELevated LFTs, stable now - due to ischemic hepatitis. /Leucocytosis with sepsis - Source MRSA bacteremia and MSSA pneumonia. UA showed pyuria. RUQ US showed no ascites. - Repeat TTE negative for vegetation. Completed 7 days of Ceftriaxone on 11/29/2019. - cont abx vancomycin 1 gm IV q 12 hour total 2 week till 12/30/2019 /MSSA pneumonia: on vancomycin till 12/30/2019 /ALcohol USe Disorder - given ongoing Alcohol use almost daily, s/p IV Thiamine - monitor /Severe hypokalemia -Repleted /Seizure disorder: treat with Keppra /H. Influenzae, tracheobronchitis, treated with abx FUll code, family denies DNR Very poor prognosis The high probability of a clinically significant, sudden or life threatening deterioration of the [neurology,respiratory] system(s) required my full and direct attention, intervention and personal management. The aggregate critical care time was [32] minutes. This time is in addition to time spent performing reported procedures but includes the following: [x] Data Review and interpretation [x] Patient assessment and monitoring of vital signs [x] Documentation [x] Medication orders and management Disposition: prognosis very poor. Family wants full code. offered hospice but refused 12/17/19: Day 24 on MV, PEEP 6 FiO2 30%, trying to wean, held sq heparin due to drop in h/h and anemia, renewed restraints, fever appears to be due to worsening pneumonia, UA negative, pCXR Impression: Slight interval worsening of a consolidative opacity in the left mid to lower lung, worrisome for pneumonia in the appropriate clinical setting. Adjust Vancomycin dose continue cefepime with ID following. Swollen right arm with Venous doppler of right arm r/o DVT ordered but not done due to COVID-19, 12/18/19: hb 6.3, transfuse one unit PRBC 12/19/19 : H&H stable, continue to monitor clinical status at ICU 12/19: Continue to monitor at ICU, needs placement 12/20: Continue to monitor at ICU, wean off vent as tolerated, needs placement. called family- no one answered -left message 12/21: Continue to monitor at ICU, wean off vent as tolerated, needs placement. 12/22: Continue to monitor at ICU, wean off vent as tolerated, needs placement. Discussed with father about hospice - family decision pending 12/23 Continue to monitor at ICU, wean off vent as tolerated, needs placement. Spoke with pt's mother and updated. Recommended hospice and she stated she will discuss the mater with pt's daughter and Sons. Brief History: 54-year-old female with a past medical history of Hypertension, Depression, Tobacco use Disorder, Alcohol use Disorder as confirmed by Daughter and pt's mother presents to the hospital status post cardiac arrest at home. EMS found pt in [place]. They were unable to intubate patient with a ET tube because she was clenching down therefore Joe airway placed. Per the ED physician who evaluated pt, Patient presented with a pulse, intermittent respirations, and bagging support via Joe airway with O2 sat of 100%. Accu-Chek of 71 obtained by EMS. She was intubated in the ER and called for admission. Following admission patient was diagnosed with anoxic brain injury, sepsis with MRSA bacteremia and MSSA pneumonia, alcoholic liver disease. Family member wished for full code, patient currently getting treated with IV antibiotics for sepsis, status post trach and PEG on 12/13/19. Subjective Date of service: 12/24/19 Principal diagnosis: Ac cardiopulmonary arrest; Ac hypoxemic resp failure; Acute encephalopathy Interval history: Patient seen and examined remained on mechanical ventilation with trach, unresponsive, no clinical change family wants to continue full code Discussed with RN at bedside, discussed with casework manager for disposition planning Tolerating tube feeding with PEG tube, needs placement - uninsured Objective - Constitutional Vitals: Vital Signs - 12hr 12/24/19 12/24/19 12/24/19 01:30 01:45 01:52 Temperature Pulse Rate 119 H 120 H 120 H Pulse Rate [ From Monitor] Respiratory 25 H 26 H Rate Blood Pressure 125/73 115/77 115/77 O2 Sat by Pulse 96 96 96 Oximetry 12/24/19 12/24/19 12/24/19 02:00 02:15 02:30 Temperature Pulse Rate 121 H 122 H 118 H Pulse Rate [ From Monitor] Respiratory 26 H 11 L 26 H Rate Blood Pressure 123/76 120/82 110/77 O2 Sat by Pulse 96 96 97 Oximetry 12/24/19 12/24/19 12/24/19 02:45 03:00 03:15 Temperature Pulse Rate 118 H 117 H 115 H Pulse Rate [ From Monitor] Respiratory 26 H 25 H 26 H Rate Blood Pressure 119/74 119/75 116/70 O2 Sat by Pulse 99 99 98 Oximetry 12/24/19 12/24/19 12/24/19 03:30 03:46 04:00 Temperature 99.3 F Pulse Rate 115 H 114 H 113 H Pulse Rate [ 113 H From Monitor] Respiratory 26 H 26 H 26 H Rate Blood Pressure 117/72 113/69 119/73 O2 Sat by Pulse 98 96 97 Oximetry 12/24/19 12/24/19 12/24/19 04:15 04:30 04:45 Temperature Pulse Rate 114 H 112 H 110 H Pulse Rate [ From Monitor] Respiratory 26 H 26 H 26 H Rate Blood Pressure 109/70 113/68 111/69 O2 Sat by Pulse 96 97 98 Oximetry 12/24/19 12/24/19 12/24/19 05:00 05:15 05:30 Temperature Pulse Rate 110 H 107 H 105 H Pulse Rate [ From Monitor] Respiratory 26 H 26 H 26 H Rate Blood Pressure 108/70 113/71 112/74 O2 Sat by Pulse 97 98 99 Oximetry 12/24/19 12/24/19 12/24/19 05:45 06:00 06:15 Temperature Pulse Rate 104 H 101 H 101 H Pulse Rate [ From Monitor] Respiratory 26 H 26 H 26 H Rate Blood Pressure 120/79 125/78 130/84 O2 Sat by Pulse 100 100 100 Oximetry 12/24/19 12/24/19 12/24/19 06:30 06:45 07:00 Temperature Pulse Rate 103 H 105 H 107 H Pulse Rate [ From Monitor] Respiratory 26 H 26 H 26 H Rate Blood Pressure 132/85 123/74 128/80 O2 Sat by Pulse 100 98 98 Oximetry 12/24/19 12/24/19 12/24/19 07:15 07:30 07:45 Temperature Pulse Rate 108 H 109 H 109 H Pulse Rate [ From Monitor] Respiratory 26 H 26 H 26 H Rate Blood Pressure 130/79 125/76 125/82 O2 Sat by Pulse 98 98 98 Oximetry 12/24/19 12/24/19 12/24/19 08:00 08:15 08:43 Temperature Pulse Rate 110 H 112 H 107 H Pulse Rate [ From Monitor] Respiratory 26 H 26 H Rate Blood Pressure 123/75 116/65 117/68 O2 Sat by Pulse 98 97 98 Oximetry 12/24/19 13:15 Temperature Pulse Rate 114 H Pulse Rate [ From Monitor] Respiratory Rate Blood Pressure 124/76 O2 Sat by Pulse 97 Oximetry - Labs CBC & Chem 7: 12/25/19 03:47 12/25/19 03:47 Labs: Abnormal lab results 12/23/19 12/23/19 12/24/19 Range/Units 18:06 23:46 04:31 Potassium 5.3 H (3.6-5.0) mmol/L Chloride 107.6 H (98-107) mmol/L Carbon Dioxide 20 L (22-30) mmol/L BUN 72 H (7-17) mg/dL Creatinine 1.6 H (0.7-1.2) mg/dL Glucose 120 H (65-100) mg/dL POC Glucose 138 H 120 H (70-105) 12/24/19 12/24/19 Range/Units 05:08 11:58 Potassium (3.6-5.0) mmol/L Chloride (98-107) mmol/L Carbon Dioxide (22-30) mmol/L BUN (7-17) mg/dL Creatinine (0.7-1.2) mg/dL Glucose (65-100) mg/dL POC Glucose 140 H 146 H (70-105)
[2019-12-24] MEDS: GLYCOPYRROLATE 1 MG TAB PO SCH ×2 (14:30→19:59)
[2019-12-24] MEDS: SCOPOLAMINE TRANSDERMAL PATCH 72 HR TD SCH (15:00)
[2019-12-24] MEDS: QUEtiapine 100 MG TAB PO SCH (21:29)
[2019-12-24] MEDS: VANCOMYCIN 750 MG in SODIUM CHLORIDE 0.9% 250ML 250 ML IV SCH (21:56)
[2019-12-24] MEDS: MORPHINE 2 MG/1 ML INJ IV PRN (23:04)
[2019-12-25] MEDS: LORazepam 2 MG/ML VIAL IV PRN (00:17)
[2019-12-25] MEDS: ACETAMINOPHEN 325 MG/10.15 ML ORAL LIQD UNIT DOSE FEEDTUBE PRN (00:59)
[2019-12-25 04:09] LABS: Hematocrit 26.1 % (30.3-42.9); Hemoglobin 8.4 gm/dl (10.1-14.3); Mean Corpuscular HGB Conc 32 % (30-34); Mean Corpuscular Volume 89 fl (79-97); Platelet Count 942 K/mm3 (140-440); Red Blood Count 2.92 M/mm3 (3.65-5.03)
[2019-12-25 04:15] LABS: Red Cell Distribution Width 20.2 % (13.2-15.2)
[2019-12-25 04:29] LABS: Calcium 9.7 mg/dL (8.4-10.2)
[2019-12-25 06:00] LABS: Anisocytosis 1+; Basophils % (Manual) 0 % (0.0-1.8); Eosinophils % (Manual) 0 % (0.0-4.3); Monocytes % (Manual) 1.5 % (0.0-7.3); Total Cells Counted 200
[2019-12-25 06:01] LABS: Platelet Estimate Consistent w Auto
--- NOTE | 2019-12-25 08:01 | Progress Note ---
Assessment and Plan Assessment and plan: Patient is a 54-year-old woman with a history of Hypertension, Depression, tobacco and alcohol dependency who presented to [facility] ED on 11/22/2019 due to cardiac arrest outside of the hospital. EMS found pt in PEA. Upon their arrival patient in sinus tachycardia. EMS were unable to intubate patient with a ET tube because she was clenching down therefore Joe airway placed per records. Patient received Narcan and Epinephrine. Patient's rhythm changed to PEA to sinus bradycardia, to PEA, then to sinus tach after receiving Narcan and Epinephrine. Per the ED physician who evaluated pt, Patient presented with a pulse, intermittent respirations, and bagging support via Joe airway with O2 sat of 100%. Accu-Chek of 71 obtained by EMS Status post cardiac arrest, etiology unknown Acute respiratory failure with hypoxia s/p Intubation via ETT >96 hours: Trach and PEG planned, CCM following Acute cystitis with Sepsis, not sure POA, treated with antibiotics and this completed a few days 11/29/2019 ago no growth was noted on cultures no fever. We will continue off antibiotics at this time. Seizure disorder: treat with Keppra Presumed anoxic brain injury: Neurology is following Alcohol abuse: CIWA protocol Acute metabolic encephalopathy/toxic encephalopathy due to the above BHAVANA secondary to vasomotor nephropathy: treat with IVF Hypertension: watch bp closely, prn IV antihypertensives prn Distended abdomen: treat with NGT to suction Transaminitis with Ischemic hepatitis Metabolic acidosis/alcoholic acidosis/lactic acidosis H. Influenzae, tracheobronchitis Hypernatremia: free water and monitor bmp closely Full code DVT ppx: held sq heparin due to drop in h/h and anemia 12/04-: Patient failed CPAP trial became apneic according to documentation. No clinical change, continue current management, monitor H/H Awaiting labs. No new changes at this time opens eyes. Surgeon discussed trach and PEG with family but they want to get more information about hospice which they have been directed to the case fitter. Patient overnight had a episode of vomiting. Zofran started. 12/11/19: I took over patient care on day 18, Patient remains intubated, daily weaning trails. Trach and PEG planned once family consents. Mother is Anh Jesus @ [phone]. CCT 31 minutes 12/12/19: transfuse PRBC, s/p trach and PEG 3/26/20: Trach and PEG done, New fevers today, suspected Aspiration Pneumonitis vs Atelectasis; get blood cultures and empirically treat with ABX, levaquin/flagyl IV combo. Renewed restraints. ARF improved drastically as Cr went from 2.8 to 1.9 overnigh. however, WBC skyrocketed to 38.3k from 18k. Will repeat bmp and cbc, CCT 33 minutes 12/14/19: WBC improved slightly, potassium 2.5, renal function continue to improve. replete potassium, still febrile, re-consulted ID; give free water flushes via PEG. Dispo: aggressive wean and once off vent will have to discharge home, no insurance. 12/15/19: Still on MV Peep 6 fiO2 50%, ordered AM labs, renewed restraints. Right arm swollen, get Venous doppler-not done due to COVID-19 12/16/19: still on MV, PEEP 6 FiO2 30%, replete potassium, renewed restraints, give Tylenol of fevers (first real temp >100.4 since 12/14/19), green-culture, get CXR, UA. 12/17/19: Day 24 on MV, PEEP 6 FiO2 30%, trying to wean, held sq heparin due to drop in h/h and anemia, renewed restraints, fever appears to be due to worsening pneumonia, UA negative, pCXR Impression: Slight interval worsening of a consolidative opacity in the left mid to lower lung, worrisome for pneumonia in the appropriate clinical setting. Adjust Vancomycin dose continue cefepime with ID following. Swollen right arm with Venous doppler of right arm r/o DVT ordered but not done due to COVID-19, 12/25/19: Resumed care, Hospice discussed yesterday, will follow up. WBC increased to 36.4k, hgb steady at 8.4, +FOBT, Cr creeping up at 1.7 History Interval history: Patient was seen and examined. Follow-up on current diagnosis of Respiratory failure. Overnight uneventful as no events directly reported to me. Imaging, nursing note, chart, labs and old chart reviewed. Hospitalist Physical - Physical exam Narrative exam: Gen: critical ill, intubated, unresponsive not on sedation HEENT: ETT in place Neck: supple, no adenopathy, no thyromegaly, no JVD CVS/Heart: Regular Tachycardia, normal S1S2, pulses present bilaterally Chest/Lungs: CTA B, Symmetrical chest expansion, good air entry bilaterally GI/Abdomen: soft, NTND, good bowel sounds, no guarding or rebound MSK: right arm swollen Neuro: doesnt follow commands Psych: not responding - Constitutional Vitals: Temp Pulse Resp BP Pulse Ox 99.8 F H 112 H 27 H 122/76 98 12/25/19 04:00 12/25/19 06:15 12/25/19 06:15 12/25/19 06:15 12/25/19 06:15 General appearance: Present: no acute distress, other (on vent with sedation) Results - Labs CBC & Chem 7: 12/25/19 03:47 12/25/19 03:47 Labs: Laboratory Last Values WBC 36.2 K/mm3 (4.5-11.0) H 12/25/19 03:47 RBC 2.92 M/mm3 (3.65-5.03) L 12/25/19 03:47 Hgb 8.4 gm/dl (10.1-14.3) L 12/25/19 03:47 Hct 26.1 % (30.3-42.9) L 12/25/19 03:47 MCV 89 fl (79-97) 12/25/19 03:47 MCH 29 pg (28-32) 12/25/19 03:47 MCHC 32 % (30-34) 12/25/19 03:47 RDW 20.2 % (13.2-15.2) H 12/25/19 03:47 Plt Count 942 K/mm3 (140-440) H 12/25/19 03:47 Lymph % (Auto) 11.3 % (13.4-35.0) L 12/04/19 07:45 [place] % (Auto) 15.2 % (0.0-7.3) H 12/04/19 07:45 Eos % (Auto) 0.5 % (0.0-4.3) 12/04/19 07:45 Baso % (Auto) 0.6 % (0.0-1.8) 12/04/19 07:45 Lymph # 1.8 K/mm3 (1.2-5.4) 12/04/19 07:45 [place] # 2.4 K/mm3 (0.0-0.8) H 12/04/19 07:45 Eos # 0.1 K/mm3 (0.0-0.4) 12/04/19 07:45 Baso # 0.1 K/mm3 (0.0-0.1) 12/04/19 07:45 Add Manual Diff Complete 12/25/19 03:47 Total Counted 200 12/25/19 03:47 Seg Neutrophils % Naturopath 12/25/19 03:47 Seg Neuts % (Manual) 97.5 % (40.0-70.0) H 12/25/19 03:47 Band Neutrophils % 0 % 12/25/19 03:47 Lymphocytes % (Manual) 1.0 % (13.4-35.0) L 12/25/19 03:47 Reactive Lymphs % (Man) 0 % 12/25/19 03:47 Monocytes % (Manual) 1.5 % (0.0-7.3) 12/25/19 03:47 Eosinophils % (Manual) 0 % (0.0-4.3) 12/25/19 03:47 Basophils % (Manual) 0 % (0.0-1.8) 12/25/19 03:47 Metamyelocytes % 0 % 12/25/19 03:47 Myelocytes % 0 % 12/25/19 03:47 Promyelocytes % 0 % 12/25/19 03:47 Blast Cells % 0 % 12/25/19 03:47 Nucleated RBC % Not Reportable 12/25/19 03:47 Seg Neutrophils # 11.5 K/mm3 (1.8-7.7) H 12/04/19 07:45 Seg Neutrophils # Man 35.3 K/mm3 (1.8-7.7) H 12/25/19 03:47 Band Neutrophils # 0.0 K/mm3 12/25/19 03:47 Lymphocytes # (Manual) 0.4 K/mm3 (1.2-5.4) L 12/25/19 03:47 Abs React Lymphs (Man) 0.0 K/mm3 12/25/19 03:47 Monocytes # (Manual) 0.5 K/mm3 (0.0-0.8) 12/25/19 03:47 Eosinophils # (Manual) 0.0 K/mm3 (0.0-0.4) 12/25/19 03:47 Basophils # (Manual) 0.0 K/mm3 (0.0-0.1) 12/25/19 03:47 Metamyelocytes # 0.0 K/mm3 12/25/19 03:47 Myelocytes # 0.0 K/mm3 12/25/19 03:47 Promyelocytes # 0.0 K/mm3 12/25/19 03:47 Blast Cells # 0.0 K/mm3 12/25/19 03:47 Pathologist Review 12/13/19 07:48 WBC Morphology Not Reportable 12/25/19 03:47 Hypersegmented Neuts Not Reportable 12/25/19 03:47 Hyposegmented Neuts Not Reportable 12/25/19 03:47 Hypogranular Neuts Not Reportable 12/25/19 03:47 Smudge Cells Not Reportable 12/25/19 03:47 Toxic Granulation Not Reportable 12/25/19 03:47 Toxic Vacuolation Not Reportable 12/25/19 03:47 Dohle Bodies Not Reportable 12/25/19 03:47 Pelger-Huet Anomaly Not Reportable 12/25/19 03:47 Dominique Rods Not Reportable 12/25/19 03:47 Platelet Estimate Consistent w auto 12/25/19 03:47 Clumped Platelets Not Reportable 12/25/19 03:47 Plt Clumps, EDTA Not Reportable 12/25/19 03:47 Large Platelets Not Reportable 12/25/19 03:47 Giant Platelets Not Reportable 12/25/19 03:47 Platelet Satelliting Not Reportable 12/25/19 03:47 Plt Morphology Comment Not Reportable 12/25/19 03:47 RBC Morphology Not Reportable 12/25/19 03:47 Dimorphic RBCs Not Reportable 12/25/19 03:47 Polychromasia Not Reportable 12/25/19 03:47 Hypochromasia Not Reportable 12/25/19 03:47 Poikilocytosis Not Reportable 12/25/19 03:47 Anisocytosis 1+ 12/25/19 03:47 Microcytosis Not Reportable 12/25/19 03:47 Macrocytosis Not Reportable 12/25/19 03:47 Spherocytes Not Reportable 12/25/19 03:47 Pappenheimer Bodies Not Reportable 12/25/19 03:47 Sickle Cells Not Reportable 12/25/19 03:47 Target Cells Not Reportable 12/25/19 03:47 Tear Drop Cells Not Reportable 12/25/19 03:47 Ovalocytes Not Reportable 12/25/19 03:47 Helmet Cells Not Reportable 12/25/19 03:47 [place] Bodies Not Reportable 12/25/19 03:47 Alpine Rings Not Reportable 12/25/19 03:47 Jamshid Cells Not Reportable 12/25/19 03:47 Bite Cells Not Reportable 12/25/19 03:47 Crenated Cell Not Reportable 12/25/19 03:47 Elliptocytes Not Reportable 12/25/19 03:47 Acanthocytes (Spur) Not Reportable 12/25/19 03:47 Rouleaux Not Reportable 12/25/19 03:47 Hemoglobin C Crystals Not Reportable 12/25/19 03:47 Schistocytes Not Reportable 12/25/19 03:47 Malaria parasites Not Reportable 12/25/19 03:47 Gregg Bodies Not Reportable 12/25/19 03:47 Hem Pathologist Commnt No 12/25/19 03:47 PT 17.0 Sec. (12.2-14.9) H 11/23/19 03:47 INR 1.36 (0.87-1.13) H 11/23/19 03:47 APTT 128.2 Sec. (24.2-36.6) H* 11/23/19 03:47 Heparin Anti-Xa Level 0.31 U.I./ml (0.3-0.7) 11/23/19 09:03 ABG pH 7.389 pH Units (7.350-7.450) 12/22/19 08:40 ABG pCO2 37.5 mm Hg 12/22/19 08:40 ABG pO2 75.6 mm Hg (80.0-90.0) L 12/22/19 08:40 ABG HCO3 22.1 mmol/L (20.0-26.0) 12/22/19 08:40 ABG O2 Saturation 96.7 % (95.0-99.0) 12/22/19 08:40 ABG O2 Content 9.1 (0.0-44) 12/22/19 08:40 ABG Base Excess -2.6 mmol/L (-2.0-3.0) L 12/22/19 08:40 ABG Hemoglobin 6.8 gm/dl (12.0-16.0) L 12/22/19 08:40 ABG Carboxyhemoglobin 1.8 % (0.0-5.0) 12/22/19 08:40 ABG Methemoglobin 0.3 % (0.0-1.5) 12/22/19 08:40 Oxyhemoglobin 94.6 % (95.0-99.0) L 12/22/19 08:40 FiO2 30 % 12/22/19 08:40 Sodium 144 mmol/L (137-145) 12/25/19 03:47 Potassium 4.0 mmol/L (3.6-5.0) D 12/25/19 03:47 Chloride 106.0 mmol/L (98-107) 12/25/19 03:47 Carbon Dioxide 15 mmol/L (22-30) L 12/25/19 03:47 Anion Gap 27 mmol/L 12/25/19 03:47 BUN 70 mg/dL (7-17) H 12/25/19 03:47 Creatinine 1.7 mg/dL (0.7-1.2) H 12/25/19 03:47 Estimated GFR 38 ml/min 12/25/19 03:47 BUN/Creatinine Ratio 41 % 12/25/19 03:47 Glucose 153 mg/dL (65-100) H 12/25/19 03:47 POC Glucose 169 (70-105) H 12/25/19 05:30 Lactic Acid 1.80 mmol/L (0.7-2.0) 11/25/19 05:05 Calcium 9.7 mg/dL (8.4-10.2) 12/25/19 03:47 Ionized Calcium 4.5 mg/dL (4.8-5.6) L 11/23/19 06:32 Phosphorus 4.20 mg/dL (2.5-4.5) D 11/28/19 08:59 Magnesium 2.30 mg/dL (1.7-2.3) 11/29/19 13:41 Total Bilirubin 0.40 mg/dL (0.1-1.2) 12/13/19 07:48 AST 27 units/L (5-40) 12/13/19 07:48 ALT 26 units/L (7-56) 12/13/19 07:48 Alkaline Phosphatase 316 units/L (35-129) H 12/13/19 07:48 Ammonia 42.0 umol/L (25-60) 11/29/19 13:41 Total Creatine Kinase 139 units/L (30-135) H 11/22/19 23:27 CK-MB (CK-2) 8.3 ng/mL (0.0-4.0) H 11/22/19 23:27 CK-MB (CK-2) Rel Index 5.9 (0-4) H 11/22/19 23:27 Troponin T < 0.010 ng/mL (0.00-0.029) 11/22/19 23:27 Total Protein 6.8 g/dL (6.3-8.2) 12/13/19 07:48 Albumin 2.4 g/dL (3.9-5) L 12/13/19 07:48 Albumin/Globulin Ratio 0.5 % 12/13/19 07:48 Lipase 18 units/L (13-60) 11/23/19 00:34 Procalcitonin 1.09 ng/mL (<0.15) 11/23/19 04:53 Urine Color Yellow (Yellow) 12/16/19 Unknown Urine Turbidity Slightly-cloudy (Clear) 12/16/19 Unknown Urine pH 5.0 (5.0-7.0) 12/16/19 Unknown Ur Specific [place] 1.018 (1.003-1.030) 12/16/19 Unknown Urine Protein 30 mg/dl mg/dL (Negative) 12/16/19 Unknown Urine Glucose (UA) Neg mg/dL (Negative) 12/16/19 Unknown Urine Ketones Neg mg/dL (Negative) 12/16/19 Unknown Urine Blood Sm (Negative) 12/16/19 Unknown Urine Nitrite Neg (Negative) 12/16/19 Unknown Urine Bilirubin Neg (Negative) 12/16/19 Unknown Urine Urobilinogen < 2.0 mg/dL (<2.0) 12/16/19 Unknown Ur Leukocyte Esterase Neg (Negative) 12/16/19 Unknown Urine WBC (Auto) 6.0 /HPF (0.0-6.0) 12/16/19 Unknown Urine RBC (Auto) 9.0 /HPF (0.0-6.0) 12/16/19 Unknown U Epithel Cells (Auto) < 1.0 /HPF (0-13.0) 12/16/19 Unknown Urine Bacteria (Auto) 2+ /HPF (Negative) 11/22/19 23:17 Hyaline Casts 3 /LPF 12/16/19 Unknown Granular Casts 3 /LPF 12/16/19 Unknown Urine Mucus Few /HPF 12/16/19 Unknown Vancomycin Trough 33.8 ug/mL (5.0-20.0) H 12/21/19 08:56 Random Vancomycin 16.2 ug/mL (0-40.0) 12/24/19 04:31 Salicylates < 0.3 mg/dL (2.8-20.0) L 11/22/19 23:27 Urine Opiates Screen Presumptive negative 11/22/19 23:17 Urine Methadone Screen Presumptive negative 11/22/19 23:17 Acetaminophen < 5.0 ug/mL (10.0-30.0) L 11/22/19 23:27 Ur Barbiturates Screen Presumptive negative 11/22/19 23:17 Ur Phencyclidine Scrn Presumptive negative 11/22/19 23:17 Ur Amphetamines Screen Presumptive negative 11/22/19 23:17 U Benzodiazepines Scrn Presumptive negative 11/22/19 23:17 Urine Cocaine Screen Presumptive negative 11/22/19 23:17 U Marijuana (THC) Screen Presumptive negative 11/22/19 23:17 Drugs of Abuse Note Disclamer 11/22/19 23:17 Plasma/Serum Alcohol 0.08 % (0-0.07) H 11/22/19 23:27 Hepatitis A IgM Ab Non-reactive (NonReactive) 11/23/19 01:19 Hep Bs Antigen Non-reactive (Negative) 11/23/19 01:19 Hep B Core IgM Ab Non-reactive (NonReactive) 11/23/19 01:19 Hepatitis C Antibody Non-reactive (NonReactive) 11/23/19 01:19 Blood Type O POSITIVE 12/21/19 14:54 Antibody Screen Negative 12/21/19 14:54 Crossmatch See Detail 12/21/19 14:54 - Diagnostic Impressions Diagnostic Impressions: Echocardiogram 11/23/19 03:58 Transthoracic Echocardiogram Indication: Cardiac arrest BP: 131/89 HR: 115 Conclusions *The study quality is technically difficult. *Global left ventricular wall motion and contractility are within normal limits. *The estimated ejection fraction is 55-60%. *Abnormal left ventricular diastolic filling is observed, consistent with impaired relaxation. *There is no pericardial effusion. Findings Procedure Info: The study quality is technically difficult. The study was technically limited due to the patient's inability to lay in the left lateral decubitus position. Left Ventricle: The left ventricular chamber size is normal. There is no left ventricular hypertrophy. Global left ventricular wall motion and contractility are within normal limits. Global left ventricular systolic function is normal. The estimated ejection fraction is 55-60%. Abnormal left ventricular diastolic filling is observed, consistent with impaired relaxation. Left Atrium: The left atrial chamber size is normal. Aortic Valve: The aortic valve leaflets are mildly thickened. Mitral Valve: The mitral valve leaflets are mildly thickened. There is no evidence of mitral regurgitation. Tricuspid Valve: The tricuspid valve leaflets are normal. There is trace tricuspid regurgitation. The right ventricular systolic pressure is calculated at 33 mmHg. Pulmonic Valve: The pulmonic valve appears normal. Pericardium: The pericardium appears normal. There is no pericardial effusion. Aorta: The aorta appears normal. Venous: The inferior vena cava appears normal in size. Measurements Chambers 2D Name Value Normal Range IVSd (2D) 0.94 cm (0.6 - 1.1) LVPWd (2D) 0.81 cm (0.6 - 1.1) LVIDd (2D) 3.6 cm (3.7 - 5.6) LVIDs (2D) 2.27 cm (2 - 3.8) LV FS (2D) 36.93 % - EF Teichholz (2D) 67.76 % - Ao root diameter (2D) 3.03 cm (2 - 3.7) Volumes/Mass Name Value Normal Range LA ESV SP 4CH (A/L) 16.89 ml - LA ESV SP 4CH (MOD) 15.52 ml - Diastolic/Systolic Function Name Value Normal Range MV E-wave Vmax 0.55 m/sec - MV deceleration time 200.89 msec - MV A-wave Vmax 0.68 m/sec - MV E:A ratio 0.82 ratio - Aortic Valve Name Value Normal Range AV Vmax 1.1 m/sec - AV VTI 15.9 cm - AV peak gradient 4.86 mmHg - AV mean gradient 2.59 mmHg - LVOT diameter 2 cm - LVOT Vmax 1.03 m/sec - LVOT VTI 15.87 cm - LVOT peak gradient 4.24 mmHg - LVOT mean gradient 2.41 mmHg - SV LVOT 49.77 ml - JOSÉ MIGUEL (continuity Vmax) 2.93 cm2 - JOSÉ MIGUEL (continuity VTI) 3.13 cm2 - Tricuspid Valve Name Value Normal Range TR Vmax 2.74 m/sec - TR peak gradient 303 mmHg - RAP 3 mmHg - RVSP 33 mmHg - IVC diameter 1.77 cm (1.2 - 2.3) Pulmonic Valve/Qp:Qs Name Value Normal Range PV Vmax 0.77 m/sec - PV peak gradient 2.4 mmHg - PV acceleration time 114.18 msec - Echocardiogram Limited Views 12/17/19 14:53 Transthoracic Echocardiogram Indication: R/O Vegetations BP: 144/83 HR: 133 Conclusions *Global left ventricular systolic function is mildly decreased. *The estimated ejection fraction is 45-50%. *A trivial pericardial effusion is visualized. Findings Left Ventricle: The left ventricular chamber size is normal. Global left ventricular systolic function is mildly decreased. The estimated ejection fraction is 45-50%. Left Atrium: The left atrial chamber size is normal. Right Ventricle: The right ventricular cavity size is normal. Right Atrium: The right atrial cavity size is normal. Aortic Valve: The aortic valve is not well visualized. There is no evidence of aortic regurgitation. Mitral Valve: The mitral valve leaflets are mildly thickened. There is trace of mitral regurgitation. Tricuspid Valve: The tricuspid valve leaflets are mildly thickened. There is trace tricuspid regurgitation. The right ventricular systolic pressure is calculated at 29 mmHg. Pulmonic Valve: The pulmonic valve is not well visualized. There is no evidence of pulmonic regurgitation. Pericardium: A trivial pericardial effusion is visualized. Aorta: There is no dilatation of the ascending aorta. There is no dilatation of the aortic root. Venous: The inferior vena cava appears normal in size. There is a greater than 50% respiratory change in the inferior vena cava dimension. Measurements Chambers 2D Name Value Normal Range IVSd (2D) 0.83 cm (0.6 - 1.1) LVPWd (2D) 0.98 cm (0.6 - 1.1) LVIDd (2D) 3.71 cm (3.7 - 5.6) LVIDs (2D) 2.93 cm (2 - 3.8) LV FS (2D) 21.12 % - EF Teichholz (2D) 43.71 % - Ao root diameter (2D) 3.02 cm (2 - 3.7) Volumes/Mass Name Value Normal Range LA ESV SP 4CH (A/L) 36.8 ml - LA ESV SP 2CH (A/L) 45.89 ml - LA ESV BP (A/L) 42.35 ml - LA ESV BP (A/L) index 26.63 ml/m2 - LA ESV SP 4CH (MOD) 34.42 ml - LA ESV SP 2CH (MOD) 44.21 ml - LA ESV BP (MOD) 39.82 ml - LA ESV BP (MOD) index 25.05 ml/m2 - Aortic Valve Name Value Normal Range LVOT diameter 1.63 cm - Tricuspid Valve Name Value Normal Range TR Vmax 2.56 m/sec - TR peak gradient 26 mmHg - RAP 3 mmHg - RVSP 29 mmHg - IVC diameter 1.83 cm (1.2 - 2.3) [place]/IV: Voiding Method Incontinent IV Catheter Type [Forearm] Peripheral IV IV Catheter Type [Left Forearm Peripheral IV ] IV Catheter Type [Right Peripheral IV Antecubital] IV Catheter Type [Right Hand] Peripheral IV IV Catheter Type [Right Wrist] Peripheral IV IV Catheter Type [Left Wrist] Peripheral IV IV Catheter Type [Left Peripheral IV Antecubital] IV Catheter Type [Right INT / Saline Lock Forearm] IV Catheter Type [Left Hand] Peripheral IV Active Medications - Current Medications Current Medications: Generic Name Dose Route Start Last Admin Trade Name Freq PRN Reason Stop Dose Admin Acetaminophen 650 mg 12/06/19 10:25 12/25/19 00:59 Tylenol FEEDTUBE 650 mg Q6H PRN Administration TEMP >/=100.3 Lipase/Protease/Amylase 1 each 11/23/19 11:[address] 10,500 Unit FEEDTUBE PRN PRN For Clogged Feeding Tube Fentanyl 50 mcg 12/05/19 02:10 12/12/19 20:04 Sublimaze IV 50 mcg Q10MIN PRN Administration ANALGESIA Glycopyrrolate 1 mg 12/24/19 14:00 12/24/19 19:59 Robinul PO 1 mg TID LUCHO Administration Hydralazine HCl 10 mg 11/24/19 00:45 12/18/19 13:25 Apresoline IV 10 mg Q6H PRN Administration SBP > 160 Hydroxyzine Pamoate 25 mg 12/06/19 10:00 12/24/19 21:29 Vistaril PO 25 mg BID LUCHO Administration Vancomycin HCl 750 mg/ Sodium 265 mls @ 166.667 mls/hr 12/24/19 22:00 12/24/19 21:56 Chloride IV 12/30/19 21:59 166.667 mls/hr Q72H LUCHO Administration Lactulose 30 gm 12/11/19 11:00 12/24/19 21:29 Cephulac PO 30 gm BID LUCHO Administration Lansoprazole 30 mg 11/27/19 10:00 12/24/19 09:45 Prevacid Solutab FEEDTUBE 30 mg QDAY LUCHO Administration Levetiracetam 500 mg 11/29/19 10:00 12/24/19 21:29 Keppra PO 500 mg BID LUCHO Administration Lorazepam 2 mg 11/26/19 11:09 12/25/19 00:17 Ativan IV 2 mg Q4H PRN Administration Agitation Mirtazapine 30 mg 12/06/19 10:00 12/24/19 09:46 Remeron PO 30 mg DAILY LUCHO Administration Morphine Sulfate 2 mg 12/12/19 18:40 12/24/19 23:04 Morphine IV 2 mg Q4H PRN Administration Pain, Moderate (4-6) Ondansetron HCl 4 mg 12/10/19 07:53 12/10/19 09:51 Zofran IV 4 mg Q4H PRN Administration Nausea And Vomiting Quetiapine Fumarate 300 mg 12/07/19 22:00 12/24/19 21:29 Seroquel PO 300 mg QHS LUCHO Administration Quetiapine Fumarate 200 mg 12/23/19 10:00 12/24/19 09:45 Seroquel PO 200 mg QAM LUCHO Administration Scopolamine 1 each 12/12/19 15:00 12/24/19 15:00 Transderm-Scop TD 1 each Q3D LUCHO Administration Senna/Docusate Sodium 2 tab 12/24/19 07:00 Senokot S PO BID PRN CONSTIPATION Sertraline HCl 25 mg 12/06/19 10:00 12/24/19 09:47 Zoloft PO 25 mg QDAY LUCHO Administration Simple Syrup 15 ml 11/23/19 11:50 Simple Syrup FEEDTUBE PRN PRN Hypoglycemia Simple Syrup 30 ml 11/23/19 11:50 Simple Syrup FEEDTUBE PRN PRN Hypoglycemia Sodium Bicarbonate 325 mg 11/23/19 11:50 Sodium Bicarbonate FEEDTUBE PRN PRN For Clogged Feeding Tube Tamsulosin HCl 0.4 mg 12/14/19 13:00 12/24/19 09:46 Flomax PO 0.4 mg QDAY LUCHO Administration Nutrition/Malnutrition Assess - Dietary Evaluation Nutrition/Malnutrition Findings: Nutrition Notes Start: 11/23/19 11:29 Freq: Status: Active Protocol: Document 12/21/19 14:01 LM (Rec: 12/21/19 14:05 LM [email or web address]) Nutrition Notes Initial or Follow up Reassessment Current Diagnosis Hypertension Other Pertinent Diagnosis Cardaic arrest, ETOH dependence, UTI Current Diet Vital AF 1.2 at 50 ml/hr Labs/Tests Na 140 Pertinent Medications Reviewed Height 5 ft 6 in Weight 61.7 kg [place] Body Weight (kg) 59.09 BMI 21.9 Weight change and time frame wt change noted, pt with edema Subjective/Other Information Per RN pt is tolerating TF at goal. Na corrected. Percent of energy/protein needs met: 97%/100% Burn Absent Trauma Absent GI Symptoms None Current % PO Negligible Minimum of two criteria No Fluid Accumulation Mild (non-severe) #1 Nutrition Diagnosis Inadequate oral intake Diagnosis Progress(for reassessment Continues documentation) Is patient on ventilator? Yes Is Patient Ambulatory and/or Out of Bed No [facility] [phone] Calculation Used for Recommendations [facility] Additional Notes Protein: 66-110g (1.2-2g/kg) Fluid: 1 ml/kcal Nutrition Intervention Change Diet Order: TF Nutrition Support: Vital AF 1.2 at 50 ml/hr Flush 80 ml q4h Kcal 1,440 Protein (gm) 90 Fluid (mL) 973 Goal #1 TF tolerance Goal #2 Meet at least 80% of energy and protein needs via TF Anticipated Discharge Needs: unable to determine at this time Follow-Up By: 12/28/19 Additional Comments Follow for stable TF tolerance
[2019-12-25] MEDS: GLYCOPYRROLATE 1 MG TAB PO SCH ×2 (08:32→13:20)
[2019-12-25] MEDS: LANSOPRAZOLE 30 MG SOLUTAB FEEDTUBE SCH (09:44)
[2019-12-25] MEDS: metroNIDAZOLE 500 MG TAB PO SCH (09:44)
[2019-12-25] MEDS: QUEtiapine 200 MG TAB PO SCH (09:44)
[2019-12-25] MEDS: levETIRAcetam 500 MG/5 ML ORAL LIQD PO SCH (09:44)
[2019-12-25] MEDS: TAMSULOSIN 0.4 MG CAP PO SCH (09:45)
[2019-12-25] MEDS: SERTRALINE 25 MG TAB PO SCH (09:45)
[2019-12-25] MEDS: LACTULOSE 20 GM/30 ML ORAL LIQD PO SCH (09:45)
[2019-12-25] MEDS: MIRTAZAPINE 30 MG TAB PO SCH (09:45)
[2019-12-25] MEDS: hydrOXYzine PAMOATE 25 MG CAP PO SCH (09:45)
--- NOTE | 2019-12-25 14:58 | Progress Note ---
Assessment and Plan Acute cardiopulmonary arrest with ROSC Acute hypoxemic respiratory failure on MVS MRSA Bacteremia MRSA pneumonia Acute cztkcebjs-ifgci-riwmgo encephalopathy Metabolic acidosis/alcoholic acidosis/Lactic acidosis( resolved) Ischemic hepatitis Leucocytosis - persistent Erythrocytosis Tobacco use disorder Alcohol use Disorder -Discussed with RT, the need for daily SBT-continue the same while monitoring response -Continue antibiotics- Vancomycin to complete course. Monitor for toxicities -CT chest, abdomen and pelvis with oral contrast r/o colitis as a cause for leukocytosis -Trach care, airway clearance, secretion management( continue scopolamine and robinul) -CXR, ABG in the morning -Decrease Seroquel to evaluate any improvement in hermental status -Monitor WCC and trend fever curve -Continue contact isolation for MRSA -Discussed with primary attending- plans to have goals of care discussion with the family -Continue all care as documented below. -Continue with MVS, Lung protective strategies, monitor airway pressures -VAP bundle addressed -Continue aspiration precautions, HOB>40 -Continue daily assessment for readiness for SBT -Continue Stress ulcer prophylaxis -Continue enteric nutritional support at goal rate. Monitor glycemic control, with target blood glucose 140-180 mg/dL while critically ill. -Avoid hypoglycemia - Continue to wean supplemental oxygen for target O2 sat's > 90% -Continue thiamine, multivitamin and electrolyte replacement -Continue to avoid nephrotoxins, adjust all medications for GFR and CrCL - Continue bronchodilators with pulmonary hygiene - Continue prn analgesia per CPOT score - Continue to maintain of sleep-wake cycle, avoid delirium - PT/OT/ROM exercises - Continue mobility protocol and skin assessment per protocol for pressure ulcer prevention - Continue to monitor for clinical seizures - continue other care per attending / other consultants CONDITION: CRITICAL PROGNOSIS: GUARDED CODE STATUS: FULL CODE The high probability of a clinically significant, sudden or life-threatening deterioration of the [respiratory, cardiovascular,GI/hepatology/Neurology] system(s) required my full and direct attention, intervention and personal management. The aggregate critical care time was [31] minutes without overlap. Time includes spent on; [x] Data Review and interpretation [x] Patient assessment and monitoring of vital signs [x] Documentation [x] Medication orders and management Subjective Date of service: 12/25/19 Principal diagnosis: Ac cardiopulmonary arrest; Ac hypoxemic resp failure; Acute encephalopathy Interval history: Patient is seen today for: Acute cardiopulmonary arrest with ROSC; Acute hypoxemic respiratory failure; Acute metabolic-toxic encephalopathy; Ischemic hepatitis; Leucocytosis with lactic acidosis; Tobacco use disorder; Alcohol use Disorder; s/p tracheostomy 12/21/2019 no fevers,s/p trach, s/p PEG. Tolerating tube feedings, On going urinary retention- bladder scan >900 by night RN requiring straight catheterizing, now greater than 800 on bladder scan. Did not tolerate SBT, became tacyhpnic; On contact isolation for MRSA On Propofol at 5mcg, minimally responsive 12/25/2019 Seen and examined at bedside; 24hour events reviewed; nursing and respiratory care staff consulted; no adverse overnight events reported to me; resting peacefully in bed; High grade fevers with Tmax 102 with worsening leukocytosis. Remains encephalopathic, abdominal distension Failed CPAP this morning; On Vancomycin for MRSA bacteremia, repeat blood cultures NGTD -Copious tracheal and oral secretions Vent settings AC-VC 16/400/6/30% Objective Vital Signs - 12hr 12/25/19 12/25/19 12/25/19 03:00 03:15 03:30 Temperature Pulse Rate 142 H 140 H 136 H Pulse Rate [ From Monitor] Respiratory 32 H 32 H 33 H Rate Blood Pressure 135/84 134/77 123/73 O2 Sat by Pulse 95 95 96 Oximetry O2 Sat by Pulse Oximetry [ Assessment] 12/25/19 12/25/19 12/25/19 03:45 04:00 04:15 Temperature 99.8 F H Pulse Rate 128 H 129 H 126 H Pulse Rate [ 128 H From Monitor] Respiratory 26 H 30 H 27 H Rate Blood Pressure 113/64 112/70 110/69 O2 Sat by Pulse 95 96 97 Oximetry O2 Sat by Pulse Oximetry [ Assessment] 12/25/19 12/25/19 12/25/19 04:30 04:45 05:00 Temperature Pulse Rate 125 H 118 H 117 H Pulse Rate [ From Monitor] Respiratory 31 H 30 H 26 H Rate Blood Pressure 119/75 152/78 122/75 O2 Sat by Pulse 97 97 97 Oximetry O2 Sat by Pulse Oximetry [ Assessment] 12/25/19 12/25/19 12/25/19 05:15 05:30 05:45 Temperature Pulse Rate 117 H 116 H 114 H Pulse Rate [ From Monitor] Respiratory 27 H 27 H 27 H Rate Blood Pressure 120/78 120/75 122/76 O2 Sat by Pulse 98 96 96 Oximetry O2 Sat by Pulse Oximetry [ Assessment] 12/25/19 12/25/19 12/25/19 06:00 06:15 06:30 Temperature Pulse Rate 113 H 112 H 110 H Pulse Rate [ From Monitor] Respiratory 27 H 27 H 26 H Rate Blood Pressure 115/77 122/76 114/73 O2 Sat by Pulse 97 98 98 Oximetry O2 Sat by Pulse Oximetry [ Assessment] 12/25/19 12/25/19 12/25/19 06:45 07:00 07:15 Temperature Pulse Rate 109 H 109 H 108 H Pulse Rate [ From Monitor] Respiratory 26 H 26 H 26 H Rate Blood Pressure 123/77 120/77 117/74 O2 Sat by Pulse 99 99 99 Oximetry O2 Sat by Pulse Oximetry [ Assessment] 12/25/19 12/25/19 12/25/19 07:30 07:45 08:00 Temperature 98.0 F Pulse Rate 106 H 106 H 103 H Pulse Rate [ 104 H From Monitor] Respiratory 26 H 26 H 26 H Rate Blood Pressure 123/78 119/78 110/68 O2 Sat by Pulse 99 99 98 Oximetry O2 Sat by Pulse Oximetry [ Assessment] 12/25/19 12/25/19 12/25/19 08:15 08:30 08:45 Temperature Pulse Rate 101 H 101 H 98 H Pulse Rate [ From Monitor] Respiratory 26 H 26 H 26 H Rate Blood Pressure 113/71 104/66 105/68 O2 Sat by Pulse 98 98 99 Oximetry O2 Sat by Pulse Oximetry [ Assessment] 12/25/19 12/25/19 12/25/19 09:00 09:15 09:30 Temperature Pulse Rate 95 H 95 H 96 H Pulse Rate [ From Monitor] Respiratory 26 H 26 H 26 H Rate Blood Pressure 118/81 121/78 118/75 O2 Sat by Pulse 100 100 100 Oximetry O2 Sat by Pulse Oximetry [ Assessment] 12/25/19 12/25/19 12/25/19 09:45 10:00 10:15 Temperature Pulse Rate 98 H 100 H 100 H Pulse Rate [ From Monitor] Respiratory 26 H 26 H 26 H Rate Blood Pressure 128/80 134/82 126/78 O2 Sat by Pulse 100 100 100 Oximetry O2 Sat by Pulse Oximetry [ Assessment] 12/25/19 12/25/19 12/25/19 10:30 10:45 11:00 Temperature Pulse Rate 100 H 100 H 101 H Pulse Rate [ From Monitor] Respiratory 26 H 26 H 26 H Rate Blood Pressure 110/69 126/76 117/72 O2 Sat by Pulse 98 100 99 Oximetry O2 Sat by Pulse 97 Oximetry [ Assessment] 12/25/19 12/25/19 12/25/19 11:15 11:29 11:30 Temperature Pulse Rate 101 H 103 H 100 H Pulse Rate [ From Monitor] Respiratory 26 H 26 H Rate Blood Pressure 121/75 110/69 O2 Sat by Pulse 99 98 Oximetry O2 Sat by Pulse Oximetry [ Assessment] 12/25/19 12/25/19 12/25/19 11:35 11:45 11:50 Temperature Pulse Rate 99 H 103 H Pulse Rate [ 103 H From Monitor] Respiratory 26 H 13 24 Rate Blood Pressure 108/63 103/62 O2 Sat by Pulse 99 98 98 Oximetry O2 Sat by Pulse Oximetry [ Assessment] 12/25/19 12/25/19 12/25/19 12:00 12:15 12:30 Temperature 98.2 F Pulse Rate 101 H 103 H 103 H Pulse Rate [ From Monitor] Respiratory 21 17 16 Rate Blood Pressure 121/70 112/68 103/56 O2 Sat by Pulse 100 99 99 Oximetry O2 Sat by Pulse Oximetry [ Assessment] 12/25/19 12/25/19 12/25/19 12:45 13:00 13:15 Temperature Pulse Rate 104 H 103 H 104 H Pulse Rate [ From Monitor] Respiratory 17 14 16 Rate Blood Pressure 109/61 103/62 103/57 O2 Sat by Pulse 99 98 98 Oximetry O2 Sat by Pulse Oximetry [ Assessment] 12/25/19 12/25/19 12/25/19 13:30 13:45 14:00 Temperature Pulse Rate 102 H 99 H 100 H Pulse Rate [ From Monitor] Respiratory 16 19 17 Rate Blood Pressure 106/58 114/66 108/63 O2 Sat by Pulse 99 100 99 Oximetry O2 Sat by Pulse Oximetry [ Assessment] Constitutional: no acute distress, other (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, with midline tr acheostomy and no dys-synchrony, copious secretions) Eyes: non-icteric ENT: oropharynx moist, other (s/p trach) Neck: supple, no lymphadenopathy, no JVD Effort: normal Ascultation: Bilateral: diminished breath sounds, rhonchi Percussion: Bilateral: not dull Cardiovascular: regular rate and rhythm (tachycardia), other (S1,S2) Gastrointestinal: normoactive bowel sounds, soft, non-tender, other (distended but soft) Integumentary: normal Extremities: no cyanosis, no edema, pulses normal, no ischemia or petechiae Neurologic: unable to assess, other (unresponsive) Psychiatric: other (Psychiatric: Unable to assess) CBC and BMP: 12/27/19 03:42 12/27/19 03:42 ABG, PT/INR, D-dimer: ABG ABG pH 7.389 pH Units (7.350-7.450) 12/22/19 08:40 ABG pCO2 37.5 mm Hg 12/22/19 08:40 ABG pO2 75.6 mm Hg (80.0-90.0) L 12/22/19 08:40 ABG O2 Saturation 96.7 % (95.0-99.0) 12/22/19 08:40 PT/INR, D-dimer PT 17.0 Sec. (12.2-14.9) H 11/23/19 03:47 INR 1.36 (0.87-1.13) H 11/23/19 03:47 Abnormal lab findings: Abnormal Labs 11/22/19 11/22/19 11/22/19 23:17 23:18 23:27 WBC 21.2 H RBC 3.59 L Hgb 9.8 L Hct MCH 27 L RDW 18.6 H Plt Count 454 H Lymph % (Auto) [place] % (Auto) [place] # Seg Neutrophils % Seg Neuts % (Manual) 86.0 H Lymphocytes % (Manual) 9.0 L Monocytes % (Manual) Seg Neutrophils # Seg Neutrophils # Man 18.2 H Lymphocytes # (Manual) Monocytes # (Manual) 1.1 H Eosinophils # (Manual) Basophils # (Manual) PT INR APTT ABG pH ABG pO2 ABG HCO3 ABG O2 Saturation ABG Base Excess ABG Hemoglobin Oxyhemoglobin Sodium Potassium Chloride Carbon Dioxide BUN Creatinine Glucose POC Glucose 53 L Lactic Acid Calcium Ionized Calcium Phosphorus Magnesium Total Bilirubin AST ALT Alkaline Phosphatase Ammonia Total Creatine Kinase CK-MB (CK-2) CK-MB (CK-2) Rel Index Total Protein Albumin Urine WBC (Auto) 40.0 H Vancomycin Trough Salicylates Acetaminophen Plasma/Serum Alcohol Crossmatch 11/22/19 11/22/19 11/22/19 23:27 23:27 23:27 WBC RBC Hgb Hct MCH RDW Plt Count Lymph % (Auto) [place] % (Auto) [place] # Seg Neutrophils % Seg Neuts % (Manual) Lymphocytes % (Manual) Monocytes % (Manual) Seg Neutrophils # Seg Neutrophils # Man Lymphocytes # (Manual) Monocytes # (Manual) Eosinophils # (Manual) Basophils # (Manual) PT INR APTT ABG pH ABG pO2 ABG HCO3 ABG O2 Saturation ABG Base Excess ABG Hemoglobin Oxyhemoglobin Sodium Potassium 2.4 L* Chloride 85.1 L Carbon Dioxide 19 L BUN Creatinine 0.5 L Glucose 261 H POC Glucose Lactic Acid Calcium Ionized Calcium Phosphorus Magnesium Total Bilirubin AST 609 H ALT 152 H Alkaline Phosphatase 160 H Ammonia 117.0 H Total Creatine Kinase 139 H CK-MB (CK-2) 8.3 H CK-MB (CK-2) Rel Index 5.9 H Total Protein Albumin 3.6 L Urine WBC (Auto) Vancomycin Trough Salicylates < 0.3 L Acetaminophen Plasma/Serum Alcohol Crossmatch 11/22/19 11/22/19 11/23/19 23:27 23:27 01:10 WBC RBC Hgb Hct MCH RDW Plt Count Lymph % (Auto) [place] % (Auto) [place] # Seg Neutrophils % Seg Neuts % (Manual) Lymphocytes % (Manual) Monocytes % (Manual) Seg Neutrophils # Seg Neutrophils # Man Lymphocytes # (Manual) Monocytes # (Manual) Eosinophils # (Manual) Basophils # (Manual) PT INR APTT ABG pH 7.273 L ABG pO2 209.7 H ABG HCO3 ABG O2 Saturation 99.2 H ABG Base Excess -3.9 L ABG Hemoglobin 10.6 L Oxyhemoglobin 93.9 L Sodium Potassium Chloride Carbon Dioxide BUN Creatinine Glucose POC Glucose Lactic Acid Calcium Ionized Calcium Phosphorus Magnesium Total Bilirubin AST ALT Alkaline Phosphatase Ammonia Total Creatine Kinase CK-MB (CK-2) CK-MB (CK-2) Rel Index Total Protein Albumin Urine WBC (Auto) Vancomycin Trough Salicylates Acetaminophen < 5.0 L Plasma/Serum Alcohol 0.08 H Crossmatch 11/23/19 11/23/19 11/23/19 01:19 01:19 03:47 WBC RBC Hgb Hct MCH RDW Plt Count Lymph % (Auto) [place] % (Auto) [place] # Seg Neutrophils % Seg Neuts % (Manual) Lymphocytes % (Manual) Monocytes % (Manual) Seg Neutrophils # Seg Neutrophils # Man Lymphocytes # (Manual) Monocytes # (Manual) Eosinophils # (Manual) Basophils # (Manual) PT 16.3 H INR 1.29 H APTT ABG pH ABG pO2 ABG HCO3 ABG O2 Saturation ABG Base Excess ABG Hemoglobin Oxyhemoglobin Sodium Potassium Chloride Carbon Dioxide BUN Creatinine Glucose POC Glucose Lactic Acid 2.10 H* 5.00 H* Calcium Ionized Calcium Phosphorus Magnesium Total Bilirubin AST ALT Alkaline Phosphatase Ammonia Total Creatine Kinase CK-MB (CK-2) CK-MB (CK-2) Rel Index Total Protein Albumin Urine WBC (Auto) Vancomycin Trough Salicylates Acetaminophen Plasma/Serum Alcohol Crossmatch 11/23/19 11/23/19 11/23/19 03:47 03:47 04:53 WBC RBC Hgb 9.4 L Hct MCH RDW Plt Count Lymph % (Auto) [place] % (Auto) [place] # Seg Neutrophils % Seg Neuts % (Manual) Lymphocytes % (Manual) Monocytes % (Manual) Seg Neutrophils # Seg Neutrophils # Man Lymphocytes # (Manual) Monocytes # (Manual) Eosinophils # (Manual) Basophils # (Manual) PT 17.0 H INR 1.36 H APTT 128.2 H* ABG pH ABG pO2 ABG HCO3 ABG O2 Saturation ABG Base Excess ABG Hemoglobin Oxyhemoglobin Sodium Potassium Chloride Carbon Dioxide 18 L BUN Creatinine 0.5 L Glucose 105 H POC Glucose Lactic Acid Calcium 8.3 L Ionized Calcium Phosphorus 2.40 L Magnesium Total Bilirubin 1.30 H AST 761 H ALT 158 H Alkaline Phosphatase 143 H Ammonia Total Creatine Kinase CK-MB (CK-2) CK-MB (CK-2) Rel Index Total Protein Albumin 2.8 L Urine WBC (Auto) Vancomycin Trough Salicylates Acetaminophen Plasma/Serum Alcohol Crossmatch 11/23/19 11/23/19 11/23/19 05:12 06:32 06:32 WBC 16.8 H RBC 3.31 L Hgb 8.9 L Hct 28.7 L MCH 27 L RDW 18.6 H Plt Count Lymph % (Auto) [place] % (Auto) [place] # Seg Neutrophils % Seg Neuts % (Manual) 94.0 H Lymphocytes % (Manual) 1.0 L Monocytes % (Manual) Seg Neutrophils # Seg Neutrophils # Man 15.8 H Lymphocytes # (Manual) 0.2 L Monocytes # (Manual) Eosinophils # (Manual) Basophils # (Manual) PT INR APTT ABG pH ABG pO2 ABG HCO3 ABG O2 Saturation ABG Base Excess -3.2 L ABG Hemoglobin 9.0 L Oxyhemoglobin 93.6 L Sodium Potassium Chloride Carbon Dioxide BUN Creatinine Glucose POC Glucose Lactic Acid Calcium Ionized Calcium 4.5 L Phosphorus Magnesium Total Bilirubin AST ALT Alkaline Phosphatase Ammonia Total Creatine Kinase CK-MB (CK-2) CK-MB (CK-2) Rel Index Total Protein Albumin Urine WBC (Auto) Vancomycin Trough Salicylates Acetaminophen Plasma/Serum Alcohol Crossmatch 11/23/19 11/24/19 11/24/19 06:32 04:35 04:35 WBC RBC Hgb Hct MCH RDW Plt Count Lymph % (Auto) [place] % (Auto) [place] # Seg Neutrophils % Seg Neuts % (Manual) Lymphocytes % (Manual) Monocytes % (Manual) Seg Neutrophils # Seg Neutrophils # Man Lymphocytes # (Manual) Monocytes # (Manual) Eosinophils # (Manual) Basophils # (Manual) PT INR APTT ABG pH ABG pO2 ABG HCO3 ABG O2 Saturation ABG Base Excess ABG Hemoglobin Oxyhemoglobin Sodium Potassium Chloride Carbon Dioxide BUN Creatinine Glucose POC Glucose Lactic Acid 3.30 H* Calcium Ionized Calcium Phosphorus Magnesium 1.40 L Total Bilirubin AST ALT Alkaline Phosphatase Ammonia 98.0 H Total Creatine Kinase CK-MB (CK-2) CK-MB (CK-2) Rel Index Total Protein Albumin Urine WBC (Auto) Vancomycin Trough Salicylates Acetaminophen Plasma/Serum Alcohol Crossmatch 11/24/19 11/25/19 11/25/19 05:22 04:34 05:05 WBC 17.3 H RBC 2.88 L Hgb 7.8 L Hct 24.6 L MCH 27 L RDW 18.5 H Plt Count Lymph % (Auto) 7.7 L [place] % (Auto) 9.7 H [place] # 1.7 H Seg Neutrophils % 82.2 H Seg Neuts % (Manual) Lymphocytes % (Manual) Monocytes % (Manual) Seg Neutrophils # 14.2 H Seg Neutrophils # Man Lymphocytes # (Manual) Monocytes # (Manual) Eosinophils # (Manual) Basophils # (Manual) PT INR APTT ABG pH 7.475 H ABG pO2 ABG HCO3 29.4 H 32.3 H ABG O2 Saturation ABG Base Excess 5.4 H 6.9 H ABG Hemoglobin 9.0 L 10.6 L Oxyhemoglobin 94.3 L Sodium Potassium Chloride Carbon Dioxide BUN Creatinine Glucose POC Glucose Lactic Acid Calcium Ionized Calcium Phosphorus Magnesium Total Bilirubin AST ALT Alkaline Phosphatase Ammonia Total Creatine Kinase CK-MB (CK-2) CK-MB (CK-2) Rel Index Total Protein Albumin Urine WBC (Auto) Vancomycin Trough Salicylates Acetaminophen Plasma/Serum Alcohol Crossmatch 11/25/19 11/25/19 11/26/19 05:05 22:46 03:31 WBC RBC Hgb Hct MCH RDW Plt Count Lymph % (Auto) [place] % (Auto) [place] # Seg Neutrophils % Seg Neuts % (Manual) Lymphocytes % (Manual) Monocytes % (Manual) Seg Neutrophils # Seg Neutrophils # Man Lymphocytes # (Manual) Monocytes # (Manual) Eosinophils # (Manual) Basophils # (Manual) PT INR APTT ABG pH 7.459 H ABG pO2 ABG HCO3 34.2 H ABG O2 Saturation ABG Base Excess 9.4 H ABG Hemoglobin 7.6 L Oxyhemoglobin 94.8 L Sodium 152 H D 147 H Potassium 2.3 L* D 2.8 L* D Chloride 107.8 H Carbon Dioxide 31 H D 33 H BUN Creatinine 0.6 L 0.6 L Glucose 148 H 177 H POC Glucose Lactic Acid Calcium Ionized Calcium Phosphorus Magnesium Total Bilirubin AST 105 H ALT 71 H Alkaline Phosphatase 155 H Ammonia Total Creatine Kinase CK-MB (CK-2) CK-MB (CK-2) Rel Index Total Protein 5.2 L D Albumin 2.9 L Urine WBC (Auto) Vancomycin Trough Salicylates Acetaminophen Plasma/Serum Alcohol Crossmatch 11/26/19 11/26/19 11/27/19 08:24 08:24 04:20 WBC 12.0 H RBC 3.00 L Hgb 8.0 L 9.3 L Hct 25.9 L 29.7 L MCH 27 L RDW 18.5 H Plt Count Lymph % (Auto) [place] % (Auto) [place] # Seg Neutrophils % Seg Neuts % (Manual) 89.0 H Lymphocytes % (Manual) 4.0 L Monocytes % (Manual) Seg Neutrophils # Seg Neutrophils # Man 10.7 H Lymphocytes # (Manual) 0.5 L Monocytes # (Manual) Eosinophils # (Manual) Basophils # (Manual) PT INR APTT ABG pH ABG pO2 ABG HCO3 ABG O2 Saturation ABG Base Excess ABG Hemoglobin Oxyhemoglobin Sodium 146 H Potassium 3.4 L D Chloride Carbon Dioxide BUN Creatinine 0.5 L Glucose 165 H POC Glucose Lactic Acid Calcium Ionized Calcium Phosphorus Magnesium Total Bilirubin AST 57 H ALT Alkaline Phosphatase 166 H Ammonia Total Creatine Kinase CK-MB (CK-2) CK-MB (CK-2) Rel Index Total Protein Albumin 2.9 L Urine WBC (Auto) Vancomycin Trough Salicylates Acetaminophen Plasma/Serum Alcohol Crossmatch 11/27/19 11/27/19 11/27/19 04:28 04:28 04:42 WBC RBC Hgb Hct MCH RDW Plt Count Lymph % (Auto) [place] % (Auto) [place] # Seg Neutrophils % Seg Neuts % (Manual) Lymphocytes % (Manual) Monocytes % (Manual) Seg Neutrophils # Seg Neutrophils # Man Lymphocytes # (Manual) Monocytes # (Manual) Eosinophils # (Manual) Basophils # (Manual) PT INR APTT ABG pH 7.470 H ABG pO2 74.0 L ABG HCO3 33.8 H ABG O2 Saturation ABG Base Excess 9.1 H ABG Hemoglobin 8.7 L Oxyhemoglobin 94.7 L Sodium 146 H Potassium 2.9 L* Chloride Carbon Dioxide BUN 25 H Creatinine Glucose 213 H POC Glucose Lactic Acid Calcium Ionized Calcium Phosphorus 1.00 L Magnesium Total Bilirubin AST ALT Alkaline Phosphatase Ammonia Total Creatine Kinase CK-MB (CK-2) CK-MB (CK-2) Rel Index Total Protein Albumin Urine WBC (Auto) Vancomycin Trough Salicylates Acetaminophen Plasma/Serum Alcohol Crossmatch 11/27/19 11/27/19 11/27/19 05:37 12:20 15:46 WBC RBC Hgb Hct MCH RDW Plt Count Lymph % (Auto) [place] % (Auto) [place] # Seg Neutrophils % Seg Neuts % (Manual) Lymphocytes % (Manual) Monocytes % (Manual) Seg Neutrophils # Seg Neutrophils # Man Lymphocytes # (Manual) Monocytes # (Manual) Eosinophils # (Manual) Basophils # (Manual) PT INR APTT ABG pH ABG pO2 ABG HCO3 ABG O2 Saturation ABG Base Excess ABG Hemoglobin Oxyhemoglobin Sodium 146 H Potassium 3.5 L D Chloride Carbon Dioxide BUN 24 H Creatinine 0.6 L Glucose 187 H POC Glucose 117 H 220 H Lactic Acid Calcium Ionized Calcium Phosphorus Magnesium Total Bilirubin AST ALT Alkaline Phosphatase Ammonia Total Creatine Kinase CK-MB (CK-2) CK-MB (CK-2) Rel Index Total Protein Albumin Urine WBC (Auto) Vancomycin Trough Salicylates Acetaminophen Plasma/Serum Alcohol Crossmatch 11/27/19 11/28/19 11/28/19 17:28 05:00 05:02 WBC RBC Hgb Hct MCH RDW Plt Count Lymph % (Auto) [place] % (Auto) [place] # Seg Neutrophils % Seg Neuts % (Manual) Lymphocytes % (Manual) Monocytes % (Manual) Seg Neutrophils # Seg Neutrophils # Man Lymphocytes # (Manual) Monocytes # (Manual) Eosinophils # (Manual) Basophils # (Manual) PT INR APTT ABG pH ABG pO2 72.4 L ABG HCO3 33.6 H ABG O2 Saturation 94.1 L ABG Base Excess 7.3 H ABG Hemoglobin Oxyhemoglobin 91.8 L Sodium 146 H Potassium 3.3 L Chloride Carbon Dioxide BUN 25 H Creatinine 0.6 L Glucose 176 H POC Glucose 198 H Lactic Acid Calcium Ionized Calcium Phosphorus Magnesium Total Bilirubin AST ALT Alkaline Phosphatase Ammonia Total Creatine Kinase CK-MB (CK-2) CK-MB (CK-2) Rel Index Total Protein Albumin Urine WBC (Auto) Vancomycin Trough Salicylates Acetaminophen Plasma/Serum Alcohol Crossmatch 11/28/19 11/28/19 11/29/19 05:02 18:55 10:43 WBC 15.2 H 19.0 H RBC 3.06 L 3.01 L Hgb 8.3 L 8.3 L Hct 27.0 L 26.4 L MCH 27 L RDW 19.0 H 19.7 H Plt Count 479 H 611 H Lymph % (Auto) [place] % (Auto) [place] # Seg Neutrophils % Seg Neuts % (Manual) 92.0 H Lymphocytes % (Manual) 2.0 L Monocytes % (Manual) Seg Neutrophils # Seg Neutrophils # Man 14.0 H Lymphocytes # (Manual) 0.3 L Monocytes # (Manual) Eosinophils # (Manual) Basophils # (Manual) PT INR APTT ABG pH ABG pO2 ABG HCO3 ABG O2 Saturation ABG Base Excess ABG Hemoglobin Oxyhemoglobin Sodium Potassium Chloride Carbon Dioxide BUN Creatinine Glucose POC Glucose 138 H Lactic Acid Calcium Ionized Calcium Phosphorus Magnesium Total Bilirubin AST ALT Alkaline Phosphatase Ammonia Total Creatine Kinase CK-MB (CK-2) CK-MB (CK-2) Rel Index Total Protein Albumin Urine WBC (Auto) Vancomycin Trough Salicylates Acetaminophen Plasma/Serum Alcohol Crossmatch 11/29/19 11/29/19 11/29/19 10:43 12:27 19:25 WBC RBC Hgb Hct MCH RDW Plt Count Lymph % (Auto) [place] % (Auto) [place] # Seg Neutrophils % Seg Neuts % (Manual) Lymphocytes % (Manual) Monocytes % (Manual) Seg Neutrophils # Seg Neutrophils # Man Lymphocytes # (Manual) Monocytes # (Manual) Eosinophils # (Manual) Basophils # (Manual) PT INR APTT ABG pH ABG pO2 ABG HCO3 ABG O2 Saturation ABG Base Excess ABG Hemoglobin Oxyhemoglobin Sodium Potassium 2.8 L* Chloride Carbon Dioxide BUN 20 H Creatinine 0.5 L Glucose 121 H POC Glucose 128 H 120 H Lactic Acid Calcium Ionized Calcium Phosphorus Magnesium Total Bilirubin AST ALT Alkaline Phosphatase Ammonia Total Creatine Kinase CK-MB (CK-2) CK-MB (CK-2) Rel Index Total Protein Albumin Urine WBC (Auto) Vancomycin Trough Salicylates Acetaminophen Plasma/Serum Alcohol Crossmatch 11/29/19 11/30/19 11/30/19 23:46 04:10 05:02 WBC RBC Hgb Hct MCH RDW Plt Count Lymph % (Auto) [place] % (Auto) [place] # Seg Neutrophils % Seg Neuts % (Manual) Lymphocytes % (Manual) Monocytes % (Manual) Seg Neutrophils # Seg Neutrophils # Man Lymphocytes # (Manual) Monocytes # (Manual) Eosinophils # (Manual) Basophils # (Manual) PT INR APTT ABG pH ABG pO2 76.3 L ABG HCO3 32.5 H ABG O2 Saturation ABG Base Excess 6.9 H ABG Hemoglobin 8.0 L Oxyhemoglobin 92.6 L Sodium Potassium Chloride Carbon Dioxide BUN Creatinine Glucose POC Glucose 116 H 128 H Lactic Acid Calcium Ionized Calcium Phosphorus Magnesium Total Bilirubin AST ALT Alkaline Phosphatase Ammonia Total Creatine Kinase CK-MB (CK-2) CK-MB (CK-2) Rel Index Total Protein Albumin Urine WBC (Auto) Vancomycin Trough Salicylates Acetaminophen Plasma/Serum Alcohol Crossmatch 11/30/19 11/30/19 11/30/19 05:25 05:25 12:59 WBC 18.4 H RBC 3.10 L Hgb 8.5 L Hct 27.5 L MCH 27 L RDW 20.9 H Plt Count 691 H Lymph % (Auto) 7.1 L [place] % (Auto) 7.7 H [place] # 1.4 H Seg Neutrophils % 83.4 H Seg Neuts % (Manual) Lymphocytes % (Manual) Monocytes % (Manual) Seg Neutrophils # 15.4 H Seg Neutrophils # Man Lymphocytes # (Manual) Monocytes # (Manual) Eosinophils # (Manual) Basophils # (Manual) PT INR APTT ABG pH ABG pO2 ABG HCO3 ABG O2 Saturation ABG Base Excess ABG Hemoglobin Oxyhemoglobin Sodium 146 H Potassium Chloride 107.2 H Carbon Dioxide BUN Creatinine 0.5 L Glucose 132 H POC Glucose 124 H Lactic Acid Calcium Ionized Calcium Phosphorus Magnesium Total Bilirubin AST 246 H ALT 274 H Alkaline Phosphatase 203 H Ammonia Total Creatine Kinase CK-MB (CK-2) CK-MB (CK-2) Rel Index Total Protein 5.4 L Albumin 2.9 L Urine WBC (Auto) Vancomycin Trough Salicylates Acetaminophen Plasma/Serum Alcohol Crossmatch 11/30/19 12/01/19 12/01/19 17:53 00:05 05:10 WBC RBC Hgb Hct MCH RDW Plt Count Lymph % (Auto) [place] % (Auto) [place] # Seg Neutrophils % Seg Neuts % (Manual) Lymphocytes % (Manual) Monocytes % (Manual) Seg Neutrophils # Seg Neutrophils # Man Lymphocytes # (Manual) Monocytes # (Manual) Eosinophils # (Manual) Basophils # (Manual) PT INR APTT ABG pH ABG pO2 ABG HCO3 ABG O2 Saturation ABG Base Excess ABG Hemoglobin Oxyhemoglobin Sodium Potassium Chloride Carbon Dioxide BUN Creatinine Glucose POC Glucose 113 H 143 H 145 H Lactic Acid Calcium Ionized Calcium Phosphorus Magnesium Total Bilirubin AST ALT Alkaline Phosphatase Ammonia Total Creatine Kinase CK-MB (CK-2) CK-MB (CK-2) Rel Index Total Protein Albumin Urine WBC (Auto) Vancomycin Trough Salicylates Acetaminophen Plasma/Serum Alcohol Crossmatch 12/01/19 12/01/19 12/01/19 05:33 08:23 08:23 WBC 22.7 H RBC 2.88 L Hgb 7.9 L Hct 25.2 L MCH 27 L RDW 21.0 H Plt Count 732 H Lymph % (Auto) [place] % (Auto) [place] # Seg Neutrophils % Seg Neuts % (Manual) 91.0 H Lymphocytes % (Manual) 3.0 L Monocytes % (Manual) Seg Neutrophils # Seg Neutrophils # Man 20.7 H Lymphocytes # (Manual) 0.7 L Monocytes # (Manual) 1.1 H Eosinophils # (Manual) Basophils # (Manual) PT INR APTT ABG pH ABG pO2 68.6 L ABG HCO3 34.1 H ABG O2 Saturation ABG Base Excess 9.0 H ABG Hemoglobin 6.5 L Oxyhemoglobin 94.7 L Sodium Potassium Chloride Carbon Dioxide BUN Creatinine 0.5 L Glucose 125 H POC Glucose Lactic Acid Calcium Ionized Calcium Phosphorus Magnesium Total Bilirubin AST ALT Alkaline Phosphatase Ammonia Total Creatine Kinase CK-MB (CK-2) CK-MB (CK-2) Rel Index Total Protein Albumin Urine WBC (Auto) Vancomycin Trough Salicylates Acetaminophen Plasma/Serum Alcohol Crossmatch 12/01/19 12/01/19 12/01/19 13:21 17:54 20:59 WBC RBC Hgb Hct MCH RDW Plt Count Lymph % (Auto) [place] % (Auto) [place] # Seg Neutrophils % Seg Neuts % (Manual) Lymphocytes % (Manual) Monocytes % (Manual) Seg Neutrophils # Seg Neutrophils # Man Lymphocytes # (Manual) Monocytes # (Manual) Eosinophils # (Manual) Basophils # (Manual) PT INR APTT ABG pH ABG pO2 78.3 L ABG HCO3 33.8 H ABG O2 Saturation 94.9 L ABG Base Excess 7.9 H ABG Hemoglobin 11.5 L Oxyhemoglobin 92.3 L Sodium Potassium Chloride Carbon Dioxide BUN Creatinine Glucose POC Glucose 111 H 115 H Lactic Acid Calcium Ionized Calcium Phosphorus Magnesium Total Bilirubin AST ALT Alkaline Phosphatase Ammonia Total Creatine Kinase CK-MB (CK-2) CK-MB (CK-2) Rel Index Total Protein Albumin Urine WBC (Auto) Vancomycin Trough Salicylates Acetaminophen Plasma/Serum Alcohol Crossmatch 12/02/19 12/03/19 12/04/19 12:55 20:00 04:26 WBC 15.2 H RBC 2.69 L Hgb 7.4 L Hct 23.6 L MCH 27 L RDW 19.9 H Plt Count 838 H Lymph % (Auto) [place] % (Auto) [place] # Seg Neutrophils % Seg Neuts % (Manual) Lymphocytes % (Manual) Monocytes % (Manual) Seg Neutrophils # Seg Neutrophils # Man Lymphocytes # (Manual) Monocytes # (Manual) Eosinophils # (Manual) Basophils # (Manual) PT INR APTT ABG pH ABG pO2 68.3 L ABG HCO3 33.5 H ABG O2 Saturation 93.5 L ABG Base Excess 8.4 H ABG Hemoglobin 7.3 L Oxyhemoglobin 90.9 L Sodium Potassium Chloride Carbon Dioxide BUN Creatinine Glucose POC Glucose 107 H Lactic Acid Calcium Ionized Calcium Phosphorus Magnesium Total Bilirubin AST ALT Alkaline Phosphatase Ammonia Total Creatine Kinase CK-MB (CK-2) CK-MB (CK-2) Rel Index Total Protein Albumin Urine WBC (Auto) Vancomycin Trough Salicylates Acetaminophen Plasma/Serum Alcohol Crossmatch 12/04/19 12/04/19 12/04/19 04:26 07:45 12:02 WBC 15.9 H RBC 2.88 L Hgb 7.9 L Hct 25.1 L MCH RDW 20.4 H Plt Count 839 H Lymph % (Auto) 11.3 L [place] % (Auto) 15.2 H [place] # 2.4 H Seg Neutrophils % 72.4 H Seg Neuts % (Manual) Lymphocytes % (Manual) Monocytes % (Manual) Seg Neutrophils # 11.5 H Seg Neutrophils # Man Lymphocytes # (Manual) Monocytes # (Manual) Eosinophils # (Manual) Basophils # (Manual) PT INR APTT ABG pH ABG pO2 ABG HCO3 ABG O2 Saturation ABG Base Excess ABG Hemoglobin Oxyhemoglobin Sodium Potassium Chloride 96.5 L Carbon Dioxide BUN 21 H Creatinine 0.6 L Glucose 107 H POC Glucose 138 H Lactic Acid Calcium Ionized Calcium Phosphorus Magnesium Total Bilirubin AST ALT Alkaline Phosphatase Ammonia Total Creatine Kinase CK-MB (CK-2) CK-MB (CK-2) Rel Index Total Protein Albumin Urine WBC (Auto) Vancomycin Trough Salicylates Acetaminophen Plasma/Serum Alcohol Crossmatch 12/04/19 12/05/19 12/05/19 18:16 11:55 18:36 WBC RBC Hgb Hct MCH RDW Plt Count Lymph % (Auto) [place] % (Auto) [place] # Seg Neutrophils % Seg Neuts % (Manual) Lymphocytes % (Manual) Monocytes % (Manual) Seg Neutrophils # Seg Neutrophils # Man Lymphocytes # (Manual) Monocytes # (Manual) Eosinophils # (Manual) Basophils # (Manual) PT INR APTT ABG pH ABG pO2 ABG HCO3 ABG O2 Saturation ABG Base Excess ABG Hemoglobin Oxyhemoglobin Sodium Potassium Chloride Carbon Dioxide BUN Creatinine Glucose POC Glucose 135 H 125 H 135 H Lactic Acid Calcium Ionized Calcium Phosphorus Magnesium Total Bilirubin AST ALT Alkaline Phosphatase Ammonia Total Creatine Kinase CK-MB (CK-2) CK-MB (CK-2) Rel Index Total Protein Albumin Urine WBC (Auto) Vancomycin Trough Salicylates Acetaminophen Plasma/Serum Alcohol Crossmatch 12/05/19 12/06/19 12/06/19 23:30 04:14 05:43 WBC RBC Hgb Hct MCH RDW Plt Count Lymph % (Auto) [place] % (Auto) [place] # Seg Neutrophils % Seg Neuts % (Manual) Lymphocytes % (Manual) Monocytes % (Manual) Seg Neutrophils # Seg Neutrophils # Man Lymphocytes # (Manual) Monocytes # (Manual) Eosinophils # (Manual) Basophils # (Manual) PT INR APTT ABG pH ABG pO2 ABG HCO3 ABG O2 Saturation ABG Base Excess ABG Hemoglobin Oxyhemoglobin Sodium Potassium 5.6 H Chloride 95.0 L Carbon Dioxide BUN 48 H Creatinine 1.3 H D Glucose POC Glucose 126 H 121 H Lactic Acid Calcium Ionized Calcium Phosphorus Magnesium Total Bilirubin AST 89 H ALT 98 H Alkaline Phosphatase 476 H Ammonia Total Creatine Kinase CK-MB (CK-2) CK-MB (CK-2) Rel Index Total Protein Albumin 2.8 L Urine WBC (Auto) Vancomycin Trough Salicylates Acetaminophen Plasma/Serum Alcohol Crossmatch 12/06/19 12/06/19 12/07/19 10:39 14:34 00:19 WBC 17.3 H RBC 2.60 L Hgb 7.1 L Hct 22.7 L MCH 27 L RDW 20.1 H Plt Count 832 H Lymph % (Auto) [place] % (Auto) [place] # Seg Neutrophils % Seg Neuts % (Manual) Lymphocytes % (Manual) Monocytes % (Manual) Seg Neutrophils # Seg Neutrophils # Man Lymphocytes # (Manual) Monocytes # (Manual) Eosinophils # (Manual) Basophils # (Manual) PT INR APTT ABG pH ABG pO2 ABG HCO3 ABG O2 Saturation ABG Base Excess ABG Hemoglobin Oxyhemoglobin Sodium Potassium Chloride Carbon Dioxide BUN Creatinine Glucose POC Glucose 128 H 136 H Lactic Acid Calcium Ionized Calcium Phosphorus Magnesium Total Bilirubin AST ALT Alkaline Phosphatase Ammonia Total Creatine Kinase CK-MB (CK-2) CK-MB (CK-2) Rel Index Total Protein Albumin Urine WBC (Auto) Vancomycin Trough Salicylates Acetaminophen Plasma/Serum Alcohol Crossmatch 12/07/19 12/07/19 12/07/19 03:44 03:44 05:53 WBC 16.2 H RBC 2.56 L Hgb 7.1 L Hct 22.3 L MCH RDW 19.4 H Plt Count 782 H Lymph % (Auto) [place] % (Auto) [place] # Seg Neutrophils % Seg Neuts % (Manual) Lymphocytes % (Manual) Monocytes % (Manual) Seg Neutrophils # Seg Neutrophils # Man Lymphocytes # (Manual) Monocytes # (Manual) Eosinophils # (Manual) Basophils # (Manual) PT INR APTT ABG pH ABG pO2 ABG HCO3 ABG O2 Saturation ABG Base Excess ABG Hemoglobin Oxyhemoglobin Sodium Potassium Chloride 95.6 L Carbon Dioxide BUN 56 H Creatinine 1.4 H Glucose 120 H POC Glucose 128 H Lactic Acid Calcium 10.3 H Ionized Calcium Phosphorus Magnesium Total Bilirubin AST ALT Alkaline Phosphatase Ammonia Total Creatine Kinase CK-MB (CK-2) CK-MB (CK-2) Rel Index Total Protein Albumin Urine WBC (Auto) Vancomycin Trough Salicylates Acetaminophen Plasma/Serum Alcohol Crossmatch 12/07/19 12/07/19 12/08/19 12:54 23:47 00:20 WBC RBC Hgb Hct MCH RDW Plt Count Lymph % (Auto) [place] % (Auto) [place] # Seg Neutrophils % Seg Neuts % (Manual) Lymphocytes % (Manual) Monocytes % (Manual) Seg Neutrophils # Seg Neutrophils # Man Lymphocytes # (Manual) Monocytes # (Manual) Eosinophils # (Manual) Basophils # (Manual) PT INR APTT ABG pH ABG pO2 ABG HCO3 ABG O2 Saturation ABG Base Excess ABG Hemoglobin Oxyhemoglobin Sodium Potassium Chloride Carbon Dioxide BUN Creatinine Glucose POC Glucose 128 H 130 H 124 H Lactic Acid Calcium Ionized Calcium Phosphorus Magnesium Total Bilirubin AST ALT Alkaline Phosphatase Ammonia Total Creatine Kinase CK-MB (CK-2) CK-MB (CK-2) Rel Index Total Protein Albumin Urine WBC (Auto) Vancomycin Trough Salicylates Acetaminophen Plasma/Serum Alcohol Crossmatch 12/08/19 12/08/19 12/08/19 06:38 12:04 18:26 WBC RBC Hgb Hct MCH RDW Plt Count Lymph % (Auto) [place] % (Auto) [place] # Seg Neutrophils % Seg Neuts % (Manual) Lymphocytes % (Manual) Monocytes % (Manual) Seg Neutrophils # Seg Neutrophils # Man Lymphocytes # (Manual) Monocytes # (Manual) Eosinophils # (Manual) Basophils # (Manual) PT INR APTT ABG pH ABG pO2 ABG HCO3 ABG O2 Saturation ABG Base Excess ABG Hemoglobin Oxyhemoglobin Sodium Potassium Chloride Carbon Dioxide BUN Creatinine Glucose POC Glucose 137 H 129 H 150 H Lactic Acid Calcium Ionized Calcium Phosphorus Magnesium Total Bilirubin AST ALT Alkaline Phosphatase Ammonia Total Creatine Kinase CK-MB (CK-2) CK-MB (CK-2) Rel Index Total Protein Albumin Urine WBC (Auto) Vancomycin Trough Salicylates Acetaminophen Plasma/Serum Alcohol Crossmatch 12/09/19 12/09/19 12/09/19 00:56 05:34 06:13 WBC RBC Hgb Hct MCH RDW Plt Count Lymph % (Auto) [place] % (Auto) [place] # Seg Neutrophils % Seg Neuts % (Manual) Lymphocytes % (Manual) Monocytes % (Manual) Seg Neutrophils # Seg Neutrophils # Man Lymphocytes # (Manual) Monocytes # (Manual) Eosinophils # (Manual) Basophils # (Manual) PT INR APTT ABG pH ABG pO2 ABG HCO3 ABG O2 Saturation ABG Base Excess ABG Hemoglobin Oxyhemoglobin Sodium 146 H Potassium Chloride Carbon Dioxide BUN 66 H Creatinine 1.9 H Glucose 116 H POC Glucose 130 H 130 H Lactic Acid Calcium Ionized Calcium Phosphorus Magnesium Total Bilirubin AST ALT Alkaline Phosphatase Ammonia Total Creatine Kinase CK-MB (CK-2) CK-MB (CK-2) Rel Index Total Protein Albumin Urine WBC (Auto) Vancomycin Trough Salicylates Acetaminophen Plasma/Serum Alcohol Crossmatch 12/09/19 12/09/19 12/10/19 11:52 17:50 00:14 WBC RBC Hgb Hct MCH RDW Plt Count Lymph % (Auto) [place] % (Auto) [place] # Seg Neutrophils % Seg Neuts % (Manual) Lymphocytes % (Manual) Monocytes % (Manual) Seg Neutrophils # Seg Neutrophils # Man Lymphocytes # (Manual) Monocytes # (Manual) Eosinophils # (Manual) Basophils # (Manual) PT INR APTT ABG pH ABG pO2 ABG HCO3 ABG O2 Saturation ABG Base Excess ABG Hemoglobin Oxyhemoglobin Sodium Potassium Chloride Carbon Dioxide BUN Creatinine Glucose POC Glucose 135 H 120 H 116 H Lactic Acid Calcium Ionized Calcium Phosphorus Magnesium Total Bilirubin AST ALT Alkaline Phosphatase Ammonia Total Creatine Kinase CK-MB (CK-2) CK-MB (CK-2) Rel Index Total Protein Albumin Urine WBC (Auto) Vancomycin Trough Salicylates Acetaminophen Plasma/Serum Alcohol Crossmatch 12/10/19 12/10/19 12/10/19 05:38 11:38 17:34 WBC RBC Hgb Hct MCH RDW Plt Count Lymph % (Auto) [place] % (Auto) [place] # Seg Neutrophils % Seg Neuts % (Manual) Lymphocytes % (Manual) Monocytes % (Manual) Seg Neutrophils # Seg Neutrophils # Man Lymphocytes # (Manual) Monocytes # (Manual) Eosinophils # (Manual) Basophils # (Manual) PT INR APTT ABG pH ABG pO2 ABG HCO3 ABG O2 Saturation ABG Base Excess ABG Hemoglobin Oxyhemoglobin Sodium Potassium Chloride Carbon Dioxide BUN Creatinine Glucose POC Glucose 115 H 112 H 130 H Lactic Acid Calcium Ionized Calcium Phosphorus Magnesium Total Bilirubin AST ALT Alkaline Phosphatase Ammonia Total Creatine Kinase CK-MB (CK-2) CK-MB (CK-2) Rel Index Total Protein Albumin Urine WBC (Auto) Vancomycin Trough Salicylates Acetaminophen Plasma/Serum Alcohol Crossmatch 12/11/19 12/11/19 12/11/19 00:20 05:31 12:22 WBC RBC Hgb Hct MCH RDW Plt Count Lymph % (Auto) [place] % (Auto) [place] # Seg Neutrophils % Seg Neuts % (Manual) Lymphocytes % (Manual) Monocytes % (Manual) Seg Neutrophils # Seg Neutrophils # Man Lymphocytes # (Manual) Monocytes # (Manual) Eosinophils # (Manual) Basophils # (Manual) PT INR APTT ABG pH ABG pO2 ABG HCO3 ABG O2 Saturation ABG Base Excess ABG Hemoglobin Oxyhemoglobin Sodium Potassium Chloride Carbon Dioxide BUN Creatinine Glucose POC Glucose 124 H 132 H 128 H Lactic Acid Calcium Ionized Calcium Phosphorus Magnesium Total Bilirubin AST ALT Alkaline Phosphatase Ammonia Total Creatine Kinase CK-MB (CK-2) CK-MB (CK-2) Rel Index Total Protein Albumin Urine WBC (Auto) Vancomycin Trough Salicylates Acetaminophen Plasma/Serum Alcohol Crossmatch 12/11/19 12/11/19 12/12/19 18:04 23:42 03:51 WBC RBC Hgb Hct MCH RDW Plt Count Lymph % (Auto) [place] % (Auto) [place] # Seg Neutrophils % Seg Neuts % (Manual) Lymphocytes % (Manual) Monocytes % (Manual) Seg Neutrophils # Seg Neutrophils # Man Lymphocytes # (Manual) Monocytes # (Manual) Eosinophils # (Manual) Basophils # (Manual) PT INR APTT ABG pH ABG pO2 ABG HCO3 ABG O2 Saturation ABG Base Excess ABG Hemoglobin Oxyhemoglobin Sodium 149 H Potassium Chloride Carbon Dioxide 20 L D BUN 77 H Creatinine 2.8 H Glucose POC Glucose 133 H 154 H Lactic Acid Calcium Ionized Calcium Phosphorus Magnesium Total Bilirubin AST ALT Alkaline Phosphatase Ammonia Total Creatine Kinase CK-MB (CK-2) CK-MB (CK-2) Rel Index Total Protein Albumin Urine WBC (Auto) Vancomycin Trough Salicylates Acetaminophen Plasma/Serum Alcohol Crossmatch 12/12/19 12/12/19 12/12/19 05:18 05:26 10:30 WBC 18.0 H RBC 2.51 L Hgb 6.8 L Hct 22.0 L MCH 27 L RDW 19.9 H Plt Count 582 H Lymph % (Auto) [place] % (Auto) [place] # Seg Neutrophils % Seg Neuts % (Manual) Lymphocytes % (Manual) Monocytes % (Manual) Seg Neutrophils # Seg Neutrophils # Man Lymphocytes # (Manual) Monocytes # (Manual) Eosinophils # (Manual) Basophils # (Manual) PT INR APTT ABG pH ABG pO2 ABG HCO3 ABG O2 Saturation ABG Base Excess ABG Hemoglobin Oxyhemoglobin Sodium Potassium Chloride Carbon Dioxide BUN Creatinine Glucose POC Glucose 135 H Lactic Acid Calcium Ionized Calcium Phosphorus Magnesium Total Bilirubin AST ALT Alkaline Phosphatase Ammonia Total Creatine Kinase CK-MB (CK-2) CK-MB (CK-2) Rel Index Total Protein Albumin Urine WBC (Auto) Vancomycin Trough Salicylates Acetaminophen Plasma/Serum Alcohol Crossmatch See Detail 12/12/19 12/12/19 12/12/19 11:44 18:10 23:21 WBC RBC Hgb Hct MCH RDW Plt Count Lymph % (Auto) [place] % (Auto) [place] # Seg Neutrophils % Seg Neuts % (Manual) Lymphocytes % (Manual) Monocytes % (Manual) Seg Neutrophils # Seg Neutrophils # Man Lymphocytes # (Manual) Monocytes # (Manual) Eosinophils # (Manual) Basophils # (Manual) PT INR APTT ABG pH ABG pO2 ABG HCO3 ABG O2 Saturation ABG Base Excess ABG Hemoglobin Oxyhemoglobin Sodium Potassium Chloride Carbon Dioxide BUN Creatinine Glucose POC Glucose 108 H 107 H 126 H Lactic Acid Calcium Ionized Calcium Phosphorus Magnesium Total Bilirubin AST ALT Alkaline Phosphatase Ammonia Total Creatine Kinase CK-MB (CK-2) CK-MB (CK-2) Rel Index Total Protein Albumin Urine WBC (Auto) Vancomycin Trough Salicylates Acetaminophen Plasma/Serum Alcohol Crossmatch 12/13/19 12/13/19 12/13/19 05:41 07:48 07:48 WBC 38.3 H RBC 2.37 L Hgb 6.3 L Hct 20.9 L MCH 27 L RDW 20.2 H Plt Count 546 H Lymph % (Auto) [place] % (Auto) [place] # Seg Neutrophils % Seg Neuts % (Manual) 93.0 H Lymphocytes % (Manual) 1.0 L Monocytes % (Manual) Seg Neutrophils # Seg Neutrophils # Man 35.6 H Lymphocytes # (Manual) 0.4 L Monocytes # (Manual) Eosinophils # (Manual) Basophils # (Manual) 0.4 H PT INR APTT ABG pH ABG pO2 ABG HCO3 ABG O2 Saturation ABG Base Excess ABG Hemoglobin Oxyhemoglobin Sodium 152 H Potassium 3.1 L D Chloride 111.9 H Carbon Dioxide 21 L BUN 53 H Creatinine 1.9 H Glucose 141 H POC Glucose 128 H Lactic Acid Calcium Ionized Calcium Phosphorus Magnesium Total Bilirubin AST ALT Alkaline Phosphatase 316 H Ammonia Total Creatine Kinase CK-MB (CK-2) CK-MB (CK-2) Rel Index Total Protein Albumin 2.4 L Urine WBC (Auto) Vancomycin Trough Salicylates Acetaminophen Plasma/Serum Alcohol Crossmatch 12/13/19 12/13/19 12/14/19 18:17 23:19 05:36 WBC RBC Hgb Hct MCH RDW Plt Count Lymph % (Auto) [place] % (Auto) [place] # Seg Neutrophils % Seg Neuts % (Manual) Lymphocytes % (Manual) Monocytes % (Manual) Seg Neutrophils # Seg Neutrophils # Man Lymphocytes # (Manual) Monocytes # (Manual) Eosinophils # (Manual) Basophils # (Manual) PT INR APTT ABG pH ABG pO2 ABG HCO3 ABG O2 Saturation ABG Base Excess ABG Hemoglobin Oxyhemoglobin Sodium Potassium Chloride Carbon Dioxide BUN Creatinine Glucose POC Glucose 141 H 158 H 182 H Lactic Acid Calcium Ionized Calcium Phosphorus Magnesium Total Bilirubin AST ALT Alkaline Phosphatase Ammonia Total Creatine Kinase CK-MB (CK-2) CK-MB (CK-2) Rel Index Total Protein Albumin Urine WBC (Auto) Vancomycin Trough Salicylates Acetaminophen Plasma/Serum Alcohol Crossmatch 12/14/19 12/14/19 12/14/19 08:48 08:48 10:31 WBC 33.3 H RBC 2.70 L Hgb 7.9 L 8.0 L Hct 25.3 L 24.0 L MCH RDW 19.2 H Plt Count 476 H Lymph % (Auto) [place] % (Auto) [place] # Seg Neutrophils % Seg Neuts % (Manual) Lymphocytes % (Manual) Monocytes % (Manual) Seg Neutrophils # Seg Neutrophils # Man Lymphocytes # (Manual) Monocytes # (Manual) Eosinophils # (Manual) Basophils # (Manual) PT INR APTT ABG pH ABG pO2 ABG HCO3 ABG O2 Saturation ABG Base Excess ABG Hemoglobin Oxyhemoglobin Sodium 153 H Potassium 2.5 L* Chloride 114.9 H Carbon Dioxide 20 L BUN 38 H Creatinine 1.4 H Glucose 177 H POC Glucose Lactic Acid Calcium Ionized Calcium Phosphorus Magnesium Total Bilirubin AST ALT Alkaline Phosphatase Ammonia Total Creatine Kinase CK-MB (CK-2) CK-MB (CK-2) Rel Index Total Protein Albumin Urine WBC (Auto) Vancomycin Trough Salicylates Acetaminophen Plasma/Serum Alcohol Crossmatch 12/14/19 12/14/19 12/14/19 12:57 16:15 17:50 WBC RBC Hgb Hct MCH RDW Plt Count Lymph % (Auto) [place] % (Auto) [place] # Seg Neutrophils % Seg Neuts % (Manual) Lymphocytes % (Manual) Monocytes % (Manual) Seg Neutrophils # Seg Neutrophils # Man Lymphocytes # (Manual) Monocytes # (Manual) Eosinophils # (Manual) Basophils # (Manual) PT INR APTT ABG pH ABG pO2 73.6 L ABG HCO3 ABG O2 Saturation ABG Base Excess ABG Hemoglobin 7.6 L Oxyhemoglobin 94.0 L Sodium Potassium Chloride Carbon Dioxide BUN Creatinine Glucose POC Glucose 174 H 150 H Lactic Acid Calcium Ionized Calcium Phosphorus Magnesium Total Bilirubin AST ALT Alkaline Phosphatase Ammonia Total Creatine Kinase CK-MB (CK-2) CK-MB (CK-2) Rel Index Total Protein Albumin Urine WBC (Auto) Vancomycin Trough Salicylates Acetaminophen Plasma/Serum Alcohol Crossmatch 12/15/19 12/15/19 12/15/19 00:28 05:27 07:23 WBC 30.0 H RBC 3.11 L Hgb 8.6 L Hct 27.7 L MCH RDW 20.0 H Plt Count 473 H Lymph % (Auto) [place] % (Auto) [place] # Seg Neutrophils % Seg Neuts % (Manual) Lymphocytes % (Manual) Monocytes % (Manual) Seg Neutrophils # Seg Neutrophils # Man Lymphocytes # (Manual) Monocytes # (Manual) Eosinophils # (Manual) Basophils # (Manual) PT INR APTT ABG pH ABG pO2 ABG HCO3 ABG O2 Saturation ABG Base Excess ABG Hemoglobin Oxyhemoglobin Sodium Potassium Chloride Carbon Dioxide BUN Creatinine Glucose POC Glucose 167 H 148 H Lactic Acid Calcium Ionized Calcium Phosphorus Magnesium Total Bilirubin AST ALT Alkaline Phosphatase Ammonia Total Creatine Kinase CK-MB (CK-2) CK-MB (CK-2) Rel Index Total Protein Albumin Urine WBC (Auto) Vancomycin Trough Salicylates Acetaminophen Plasma/Serum Alcohol Crossmatch 12/15/19 12/15/19 12/15/19 07:23 12:21 17:41 WBC RBC Hgb Hct MCH RDW Plt Count Lymph % (Auto) [place] % (Auto) [place] # Seg Neutrophils % Seg Neuts % (Manual) Lymphocytes % (Manual) Monocytes % (Manual) Seg Neutrophils # Seg Neutrophils # Man Lymphocytes # (Manual) Monocytes # (Manual) Eosinophils # (Manual) Basophils # (Manual) PT INR APTT ABG pH ABG pO2 ABG HCO3 ABG O2 Saturation ABG Base Excess ABG Hemoglobin Oxyhemoglobin Sodium 147 H Potassium 3.5 L D Chloride 111.2 H Carbon Dioxide 19 L BUN 29 H Creatinine Glucose 126 H POC Glucose 154 H 144 H Lactic Acid Calcium Ionized Calcium Phosphorus Magnesium Total Bilirubin AST ALT Alkaline Phosphatase Ammonia Total Creatine Kinase CK-MB (CK-2) CK-MB (CK-2) Rel Index Total Protein Albumin Urine WBC (Auto) Vancomycin Trough Salicylates Acetaminophen Plasma/Serum Alcohol Crossmatch 12/16/19 12/16/19 12/16/19 00:22 05:30 05:44 WBC 30.8 H RBC 2.58 L Hgb 7.1 L Hct 22.7 L MCH RDW 19.6 H Plt Count 451 H Lymph % (Auto) [place] % (Auto) [place] # Seg Neutrophils % Seg Neuts % (Manual) Lymphocytes % (Manual) Monocytes % (Manual) Seg Neutrophils # Seg Neutrophils # Man Lymphocytes # (Manual) Monocytes # (Manual) Eosinophils # (Manual) Basophils # (Manual) PT INR APTT ABG pH ABG pO2 ABG HCO3 ABG O2 Saturation ABG Base Excess ABG Hemoglobin Oxyhemoglobin Sodium Potassium Chloride Carbon Dioxide BUN Creatinine Glucose POC Glucose 139 H 126 H Lactic Acid Calcium Ionized Calcium Phosphorus Magnesium Total Bilirubin AST ALT Alkaline Phosphatase Ammonia Total Creatine Kinase CK-MB (CK-2) CK-MB (CK-2) Rel Index Total Protein Albumin Urine WBC (Auto) Vancomycin Trough Salicylates Acetaminophen Plasma/Serum Alcohol Crossmatch 12/16/19 12/16/19 12/16/19 05:44 11:48 17:37 WBC RBC Hgb Hct MCH RDW Plt Count Lymph % (Auto) [place] % (Auto) [place] # Seg Neutrophils % Seg Neuts % (Manual) Lymphocytes % (Manual) Monocytes % (Manual) Seg Neutrophils # Seg Neutrophils # Man Lymphocytes # (Manual) Monocytes # (Manual) Eosinophils # (Manual) Basophils # (Manual) PT INR APTT ABG pH ABG pO2 ABG HCO3 ABG O2 Saturation ABG Base Excess ABG Hemoglobin Oxyhemoglobin Sodium Potassium 3.4 L Chloride 109.2 H Carbon Dioxide 19 L BUN 27 H Creatinine Glucose 124 H POC Glucose 125 H 148 H Lactic Acid Calcium Ionized Calcium Phosphorus Magnesium Total Bilirubin AST ALT Alkaline Phosphatase Ammonia Total Creatine Kinase CK-MB (CK-2) CK-MB (CK-2) Rel Index Total Protein Albumin Urine WBC (Auto) Vancomycin Trough Salicylates Acetaminophen Plasma/Serum Alcohol Crossmatch 12/16/19 12/17/19 12/17/19 23:43 05:28 12:47 WBC RBC Hgb Hct MCH RDW Plt Count Lymph % (Auto) [place] % (Auto) [place] # Seg Neutrophils % Seg Neuts % (Manual) Lymphocytes % (Manual) Monocytes % (Manual) Seg Neutrophils # Seg Neutrophils # Man Lymphocytes # (Manual) Monocytes # (Manual) Eosinophils # (Manual) Basophils # (Manual) PT INR APTT ABG pH ABG pO2 ABG HCO3 ABG O2 Saturation ABG Base Excess ABG Hemoglobin Oxyhemoglobin Sodium Potassium Chloride Carbon Dioxide BUN Creatinine Glucose POC Glucose 142 H 140 H 125 H Lactic Acid Calcium Ionized Calcium Phosphorus Magnesium Total Bilirubin AST ALT Alkaline Phosphatase Ammonia Total Creatine Kinase CK-MB (CK-2) CK-MB (CK-2) Rel Index Total Protein Albumin Urine WBC (Auto) Vancomycin Trough Salicylates Acetaminophen Plasma/Serum Alcohol Crossmatch 12/17/19 12/17/19 12/17/19 17:05 18:00 Unknown WBC RBC Hgb Hct MCH RDW Plt Count Lymph % (Auto) [place] % (Auto) [place] # Seg Neutrophils % Seg Neuts % (Manual) Lymphocytes % (Manual) Monocytes % (Manual) Seg Neutrophils # Seg Neutrophils # Man Lymphocytes # (Manual) Monocytes # (Manual) Eosinophils # (Manual) Basophils # (Manual) PT INR APTT ABG pH ABG pO2 68.1 L ABG HCO3 ABG O2 Saturation 93.7 L ABG Base Excess ABG Hemoglobin 5.0 L Oxyhemoglobin 91.7 L Sodium Potassium Chloride Carbon Dioxide BUN Creatinine Glucose POC Glucose 140 H Lactic Acid Calcium Ionized Calcium Phosphorus Magnesium Total Bilirubin AST ALT Alkaline Phosphatase Ammonia Total Creatine Kinase CK-MB (CK-2) CK-MB (CK-2) Rel Index Total Protein Albumin Urine WBC (Auto) Vancomycin Trough Salicylates Acetaminophen Plasma/Serum Alcohol Crossmatch 12/18/19 12/18/19 12/18/19 00:16 04:53 04:53 WBC 28.6 H RBC 2.27 L Hgb 6.3 L Hct 19.5 L* MCH RDW 20.0 H Plt Count 497 H Lymph % (Auto) [place] % (Auto) [place] # Seg Neutrophils % Seg Neuts % (Manual) Lymphocytes % (Manual) Monocytes % (Manual) Seg Neutrophils # Seg Neutrophils # Man Lymphocytes # (Manual) Monocytes # (Manual) Eosinophils # (Manual) Basophils # (Manual) PT INR APTT ABG pH ABG pO2 ABG HCO3 ABG O2 Saturation ABG Base Excess ABG Hemoglobin Oxyhemoglobin Sodium Potassium Chloride 107.9 H Carbon Dioxide 20 L BUN 27 H Creatinine 0.6 L Glucose 116 H POC Glucose 123 H Lactic Acid Calcium Ionized Calcium Phosphorus Magnesium Total Bilirubin AST ALT Alkaline Phosphatase Ammonia Total Creatine Kinase CK-MB (CK-2) CK-MB (CK-2) Rel Index Total Protein Albumin Urine WBC (Auto) Vancomycin Trough Salicylates Acetaminophen Plasma/Serum Alcohol Crossmatch 12/18/19 12/18/19 12/18/19 06:38 11:22 12:08 WBC RBC Hgb Hct MCH RDW Plt Count Lymph % (Auto) [place] % (Auto) [place] # Seg Neutrophils % Seg Neuts % (Manual) Lymphocytes % (Manual) Monocytes % (Manual) Seg Neutrophils # Seg Neutrophils # Man Lymphocytes # (Manual) Monocytes # (Manual) Eosinophils # (Manual) Basophils # (Manual) PT INR APTT ABG pH ABG pO2 ABG HCO3 ABG O2 Saturation ABG Base Excess ABG Hemoglobin Oxyhemoglobin Sodium Potassium Chloride Carbon Dioxide BUN Creatinine Glucose POC Glucose 120 H 127 H Lactic Acid Calcium Ionized Calcium Phosphorus Magnesium Total Bilirubin AST ALT Alkaline Phosphatase Ammonia Total Creatine Kinase CK-MB (CK-2) CK-MB (CK-2) Rel Index Total Protein Albumin Urine WBC (Auto) Vancomycin Trough Salicylates Acetaminophen Plasma/Serum Alcohol Crossmatch See Detail 12/18/19 12/18/19 12/18/19 14:05 17:49 23:53 WBC RBC Hgb Hct MCH RDW Plt Count Lymph % (Auto) [place] % (Auto) [place] # Seg Neutrophils % Seg Neuts % (Manual) Lymphocytes % (Manual) Monocytes % (Manual) Seg Neutrophils # Seg Neutrophils # Man Lymphocytes # (Manual) Monocytes # (Manual) Eosinophils # (Manual) Basophils # (Manual) PT INR APTT ABG pH 7.267 L ABG pO2 69.8 L ABG HCO3 ABG O2 Saturation 88.4 L ABG Base Excess ABG Hemoglobin 7.1 L Oxyhemoglobin 86.4 L Sodium Potassium Chloride Carbon Dioxide BUN Creatinine Glucose POC Glucose 157 H 128 H Lactic Acid Calcium Ionized Calcium Phosphorus Magnesium Total Bilirubin AST ALT Alkaline Phosphatase Ammonia Total Creatine Kinase CK-MB (CK-2) CK-MB (CK-2) Rel Index Total Protein Albumin Urine WBC (Auto) Vancomycin Trough Salicylates Acetaminophen Plasma/Serum Alcohol Crossmatch 12/19/19 12/19/19 12/19/19 03:37 03:37 05:25 WBC 31.3 H RBC 2.60 L Hgb 7.6 L Hct 23.0 L MCH RDW 19.4 H Plt Count 530 H Lymph % (Auto) [place] % (Auto) [place] # Seg Neutrophils % Seg Neuts % (Manual) Lymphocytes % (Manual) Monocytes % (Manual) Seg Neutrophils # Seg Neutrophils # Man Lymphocytes # (Manual) Monocytes # (Manual) Eosinophils # (Manual) Basophils # (Manual) PT INR APTT ABG pH ABG pO2 ABG HCO3 ABG O2 Saturation ABG Base Excess ABG Hemoglobin Oxyhemoglobin Sodium Potassium Chloride Carbon Dioxide 18 L BUN 36 H Creatinine Glucose 111 H POC Glucose 123 H Lactic Acid Calcium Ionized Calcium Phosphorus Magnesium Total Bilirubin AST ALT Alkaline Phosphatase Ammonia Total Creatine Kinase CK-MB (CK-2) CK-MB (CK-2) Rel Index Total Protein Albumin Urine WBC (Auto) Vancomycin Trough Salicylates Acetaminophen Plasma/Serum Alcohol Crossmatch 12/19/19 12/19/19 12/20/19 12:59 18:33 00:00 WBC RBC Hgb Hct MCH RDW Plt Count Lymph % (Auto) [place] % (Auto) [place] # Seg Neutrophils % Seg Neuts % (Manual) Lymphocytes % (Manual) Monocytes % (Manual) Seg Neutrophils # Seg Neutrophils # Man Lymphocytes # (Manual) Monocytes # (Manual) Eosinophils # (Manual) Basophils # (Manual) PT INR APTT ABG pH ABG pO2 ABG HCO3 ABG O2 Saturation ABG Base Excess ABG Hemoglobin Oxyhemoglobin Sodium Potassium Chloride Carbon Dioxide BUN Creatinine Glucose POC Glucose 130 H 118 H 135 H Lactic Acid Calcium Ionized Calcium Phosphorus Magnesium Total Bilirubin AST ALT Alkaline Phosphatase Ammonia Total Creatine Kinase CK-MB (CK-2) CK-MB (CK-2) Rel Index Total Protein Albumin Urine WBC (Auto) Vancomycin Trough Salicylates Acetaminophen Plasma/Serum Alcohol Crossmatch 12/20/19 12/20/19 12/20/19 05:46 12:31 18:07 WBC RBC Hgb Hct MCH RDW Plt Count Lymph % (Auto) [place] % (Auto) [place] # Seg Neutrophils % Seg Neuts % (Manual) Lymphocytes % (Manual) Monocytes % (Manual) Seg Neutrophils # Seg Neutrophils # Man Lymphocytes # (Manual) Monocytes # (Manual) Eosinophils # (Manual) Basophils # (Manual) PT INR APTT ABG pH ABG pO2 ABG HCO3 ABG O2 Saturation ABG Base Excess ABG Hemoglobin Oxyhemoglobin Sodium Potassium Chloride Carbon Dioxide BUN Creatinine Glucose POC Glucose 131 H 128 H 134 H Lactic Acid Calcium Ionized Calcium Phosphorus Magnesium Total Bilirubin AST ALT Alkaline Phosphatase Ammonia Total Creatine Kinase CK-MB (CK-2) CK-MB (CK-2) Rel Index Total Protein Albumin Urine WBC (Auto) Vancomycin Trough Salicylates Acetaminophen Plasma/Serum Alcohol Crossmatch 12/21/19 12/21/19 12/21/19 03:28 03:28 07:21 WBC 29.4 H RBC 2.30 L Hgb 6.8 L Hct 20.2 L MCH RDW 20.2 H Plt Count 746 H Lymph % (Auto) [place] % (Auto) [place] # Seg Neutrophils % Seg Neuts % (Manual) 85.0 H Lymphocytes % (Manual) 8.0 L Monocytes % (Manual) Seg Neutrophils # Seg Neutrophils # Man 25.0 H Lymphocytes # (Manual) Monocytes # (Manual) 1.5 H Eosinophils # (Manual) 0.6 H Basophils # (Manual) PT INR APTT ABG pH ABG pO2 ABG HCO3 ABG O2 Saturation ABG Base Excess ABG Hemoglobin Oxyhemoglobin Sodium Potassium Chloride Carbon Dioxide 17 L BUN 57 H Creatinine 1.4 H D Glucose POC Glucose 124 H Lactic Acid Calcium Ionized Calcium Phosphorus Magnesium Total Bilirubin AST ALT Alkaline Phosphatase Ammonia Total Creatine Kinase CK-MB (CK-2) CK-MB (CK-2) Rel Index Total Protein Albumin Urine WBC (Auto) Vancomycin Trough Salicylates Acetaminophen Plasma/Serum Alcohol Crossmatch 12/21/19 12/21/19 12/21/19 08:56 12:06 14:53 WBC RBC Hgb 7.2 L Hct 22.9 L MCH RDW Plt Count Lymph % (Auto) [place] % (Auto) [place] # Seg Neutrophils % Seg Neuts % (Manual) Lymphocytes % (Manual) Monocytes % (Manual) Seg Neutrophils # Seg Neutrophils # Man Lymphocytes # (Manual) Monocytes # (Manual) Eosinophils # (Manual) Basophils # (Manual) PT INR APTT ABG pH ABG pO2 ABG HCO3 ABG O2 Saturation ABG Base Excess ABG Hemoglobin Oxyhemoglobin Sodium Potassium Chloride Carbon Dioxide BUN Creatinine Glucose POC Glucose 116 H Lactic Acid Calcium Ionized Calcium Phosphorus Magnesium Total Bilirubin AST ALT Alkaline Phosphatase Ammonia Total Creatine Kinase CK-MB (CK-2) CK-MB (CK-2) Rel Index Total Protein Albumin Urine WBC (Auto) Vancomycin Trough 33.8 H Salicylates Acetaminophen Plasma/Serum Alcohol Crossmatch 12/21/19 12/21/19 12/21/19 14:54 17:27 23:49 WBC RBC Hgb Hct MCH RDW Plt Count Lymph % (Auto) [place] % (Auto) [place] # Seg Neutrophils % Seg Neuts % (Manual) Lymphocytes % (Manual) Monocytes % (Manual) Seg Neutrophils # Seg Neutrophils # Man Lymphocytes # (Manual) Monocytes # (Manual) Eosinophils # (Manual) Basophils # (Manual) PT INR APTT ABG pH ABG pO2 ABG HCO3 ABG O2 Saturation ABG Base Excess ABG Hemoglobin Oxyhemoglobin Sodium Potassium Chloride Carbon Dioxide BUN Creatinine Glucose POC Glucose 145 H 127 H Lactic Acid Calcium Ionized Calcium Phosphorus Magnesium Total Bilirubin AST ALT Alkaline Phosphatase Ammonia Total Creatine Kinase CK-MB (CK-2) CK-MB (CK-2) Rel Index Total Protein Albumin Urine WBC (Auto) Vancomycin Trough Salicylates Acetaminophen Plasma/Serum Alcohol Crossmatch See Detail 12/22/19 12/22/19 12/22/19 04:43 05:56 08:40 WBC RBC Hgb Hct MCH RDW Plt Count Lymph % (Auto) [place] % (Auto) [place] # Seg Neutrophils % Seg Neuts % (Manual) Lymphocytes % (Manual) Monocytes % (Manual) Seg Neutrophils # Seg Neutrophils # Man Lymphocytes # (Manual) Monocytes # (Manual) Eosinophils # (Manual) Basophils # (Manual) PT INR APTT ABG pH ABG pO2 75.6 L ABG HCO3 ABG O2 Saturation ABG Base Excess -2.6 L ABG Hemoglobin 6.8 L Oxyhemoglobin 94.6 L Sodium Potassium Chloride Carbon Dioxide 17 L BUN 60 H Creatinine 1.4 H Glucose 126 H POC Glucose 153 H Lactic Acid Calcium Ionized Calcium Phosphorus Magnesium Total Bilirubin AST ALT Alkaline Phosphatase Ammonia Total Creatine Kinase CK-MB (CK-2) CK-MB (CK-2) Rel Index Total Protein Albumin Urine WBC (Auto) Vancomycin Trough Salicylates Acetaminophen Plasma/Serum Alcohol Crossmatch 12/22/19 12/22/19 12/23/19 12:07 17:49 04:30 WBC 22.4 H RBC 2.68 L Hgb 7.6 L Hct 22.9 L MCH RDW 19.9 H Plt Count 998 H Lymph % (Auto) [place] % (Auto) [place] # Seg Neutrophils % Seg Neuts % (Manual) 88.0 H Lymphocytes % (Manual) 2.0 L Monocytes % (Manual) 9.0 H Seg Neutrophils # Seg Neutrophils # Man 19.7 H Lymphocytes # (Manual) 0.4 L Monocytes # (Manual) 2.0 H Eosinophils # (Manual) Basophils # (Manual) PT INR APTT ABG pH ABG pO2 ABG HCO3 ABG O2 Saturation ABG Base Excess ABG Hemoglobin Oxyhemoglobin Sodium Potassium Chloride Carbon Dioxide BUN Creatinine Glucose POC Glucose 140 H 116 H Lactic Acid Calcium Ionized Calcium Phosphorus Magnesium Total Bilirubin AST ALT Alkaline Phosphatase Ammonia Total Creatine Kinase CK-MB (CK-2) CK-MB (CK-2) Rel Index Total Protein Albumin Urine WBC (Auto) Vancomycin Trough Salicylates Acetaminophen Plasma/Serum Alcohol Crossmatch 12/23/19 12/23/19 12/23/19 04:30 12:00 18:06 WBC RBC Hgb Hct MCH RDW Plt Count Lymph % (Auto) [place] % (Auto) [place] # Seg Neutrophils % Seg Neuts % (Manual) Lymphocytes % (Manual) Monocytes % (Manual) Seg Neutrophils # Seg Neutrophils # Man Lymphocytes # (Manual) Monocytes # (Manual) Eosinophils # (Manual) Basophils # (Manual) PT INR APTT ABG pH ABG pO2 ABG HCO3 ABG O2 Saturation ABG Base Excess ABG Hemoglobin Oxyhemoglobin Sodium Potassium 5.2 H Chloride Carbon Dioxide 21 L BUN 69 H Creatinine 1.5 H Glucose 117 H POC Glucose 128 H 138 H Lactic Acid Calcium Ionized Calcium Phosphorus Magnesium Total Bilirubin AST ALT Alkaline Phosphatase Ammonia Total Creatine Kinase CK-MB (CK-2) CK-MB (CK-2) Rel Index Total Protein Albumin Urine WBC (Auto) Vancomycin Trough Salicylates Acetaminophen Plasma/Serum Alcohol Crossmatch 12/23/19 12/24/19 12/24/19 23:46 04:31 05:08 WBC RBC Hgb Hct MCH RDW Plt Count Lymph % (Auto) [place] % (Auto) [place] # Seg Neutrophils % Seg Neuts % (Manual) Lymphocytes % (Manual) Monocytes % (Manual) Seg Neutrophils # Seg Neutrophils # Man Lymphocytes # (Manual) Monocytes # (Manual) Eosinophils # (Manual) Basophils # (Manual) PT INR APTT ABG pH ABG pO2 ABG HCO3 ABG O2 Saturation ABG Base Excess ABG Hemoglobin Oxyhemoglobin Sodium Potassium 5.3 H Chloride 107.6 H Carbon Dioxide 20 L BUN 72 H Creatinine 1.6 H Glucose 120 H POC Glucose 120 H 140 H Lactic Acid Calcium Ionized Calcium Phosphorus Magnesium Total Bilirubin AST ALT Alkaline Phosphatase Ammonia Total Creatine Kinase CK-MB (CK-2) CK-MB (CK-2) Rel Index Total Protein Albumin Urine WBC (Auto) Vancomycin Trough Salicylates Acetaminophen Plasma/Serum Alcohol Crossmatch 12/24/19 12/24/19 12/25/19 11:58 17:49 03:47 WBC 36.2 H RBC 2.92 L Hgb 8.4 L Hct 26.1 L MCH RDW 20.2 H Plt Count 942 H Lymph % (Auto) [place] % (Auto) [place] # Seg Neutrophils % Seg Neuts % (Manual) 97.5 H Lymphocytes % (Manual) 1.0 L Monocytes % (Manual) Seg Neutrophils # Seg Neutrophils # Man 35.3 H Lymphocytes # (Manual) 0.4 L Monocytes # (Manual) Eosinophils # (Manual) Basophils # (Manual) PT INR APTT ABG pH ABG pO2 ABG HCO3 ABG O2 Saturation ABG Base Excess ABG Hemoglobin Oxyhemoglobin Sodium Potassium Chloride Carbon Dioxide BUN Creatinine Glucose POC Glucose 146 H 131 H Lactic Acid Calcium Ionized Calcium Phosphorus Magnesium Total Bilirubin AST ALT Alkaline Phosphatase Ammonia Total Creatine Kinase CK-MB (CK-2) CK-MB (CK-2) Rel Index Total Protein Albumin Urine WBC (Auto) Vancomycin Trough Salicylates Acetaminophen Plasma/Serum Alcohol Crossmatch 12/25/19 12/25/19 12/25/19 03:47 05:30 12:23 WBC RBC Hgb Hct MCH RDW Plt Count Lymph % (Auto) [place] % (Auto) [place] # Seg Neutrophils % Seg Neuts % (Manual) Lymphocytes % (Manual) Monocytes % (Manual) Seg Neutrophils # Seg Neutrophils # Man Lymphocytes # (Manual) Monocytes # (Manual) Eosinophils # (Manual) Basophils # (Manual) PT INR APTT ABG pH ABG pO2 ABG HCO3 ABG O2 Saturation ABG Base Excess ABG Hemoglobin Oxyhemoglobin Sodium Potassium Chloride Carbon Dioxide 15 L BUN 70 H Creatinine 1.7 H Glucose 153 H POC Glucose 169 H 135 H Lactic Acid Calcium Ionized Calcium Phosphorus Magnesium Total Bilirubin AST ALT Alkaline Phosphatase Ammonia Total Creatine Kinase CK-MB (CK-2) CK-MB (CK-2) Rel Index Total Protein Albumin Urine WBC (Auto) Vancomycin Trough Salicylates Acetaminophen Plasma/Serum Alcohol Crossmatch Chest x-ray: image reviewed Allied health notes reviewed: RT
[2019-12-26] MEDS: hydrOXYzine PAMOATE 25 MG CAP PO SCH ×3 (00:13→22:07)
[2019-12-26] MEDS: QUEtiapine 100 MG TAB PO SCH ×2 (00:14→21:51)
[2019-12-26] MEDS: LACTULOSE 20 GM/30 ML ORAL LIQD PO SCH ×3 (00:14→21:51)
[2019-12-26] MEDS: metroNIDAZOLE 500 MG TAB PO SCH ×4 (00:14→21:51)
[2019-12-26] MEDS: GLYCOPYRROLATE 1 MG TAB PO SCH ×4 (00:14→21:51)
[2019-12-26] MEDS: levETIRAcetam 500 MG/5 ML ORAL LIQD PO SCH ×3 (00:14→21:50)
--- NOTE | 2019-12-26 01:58 | Cat Scan Report ---
CT abdomen pelvis wo con INDICATION / CLINICAL INFORMATION: possible Colitis, increased WBC, increasing diarrhea Pt is on a vent!!! Oral Contrast was given via tube.. TECHNIQUE: All CT scans at this location are performed using CT dose reduction for ALARA by means of automated e xposure control. COMPARISON: 03/28/2017 FINDINGS: Limited lower thoracic images show patchy opacities in both lower lobes posteriorly. ABDOMEN: PEG tube positioned within the gastric lumen. The gallbladder, biliary system, liver, spleen and pancreas are normal. No urinary calculi or hydronephrosis. Adrenal glands are normal. No retroperitoneal adenopathy. No small bowel dilatation. Pelvis: Dela Cruz catheter is identified within a nondistended urinary bladder. Sigmoid diverticulosis. The appendix is normal. There is sigmoidorectal intussusception without demonstrated rectal prolapse. No evidence of abnormal dependent fluid collection in the pelvis or acute inflammatory process. No acute skeletal abnormalities. IMPRESSION: 1. Sigmoidorectal intussusception, no evidence of obstruction or demonstrated rectal prolapse. Furthe r evaluation of the sigmoid colon is recommended to exclude an intraluminal leading point. 2. Sigmoid diverticulosis. 3. Bilateral patchy airspace pulmonary opacities. Signer Name: Taiwo Flores MD Signed: 12/26/2019 1:54 AM Workstation Name: [employer]
[2019-12-26] MEDS: SERTRALINE 25 MG TAB PO SCH (09:36)
[2019-12-26] MEDS: MIRTAZAPINE 30 MG TAB PO SCH (09:36)
[2019-12-26] MEDS: LANSOPRAZOLE 30 MG SOLUTAB FEEDTUBE SCH (09:37)
[2019-12-26] MEDS: TAMSULOSIN 0.4 MG CAP PO SCH (09:37)
[2019-12-26] MEDS: QUEtiapine 200 MG TAB PO SCH (09:37)
--- NOTE | 2019-12-26 11:22 | Progress Note ---
Assessment and Plan Acute cardiopulmonary arrest with ROSC Acute hypoxemic respiratory failure on MVS MRSA Bacteremia MRSA pneumonia Acute irmifgkrw-jgear-shqwdu encephalopathy Metabolic acidosis/alcoholic acidosis/Lactic acidosis( resolved) Ischemic hepatitis Leucocytosis - persistent Erythrocytosis Tobacco use disorder Alcohol use Disorder -Discussed with RT, the need for daily SBT-continue the same while monitoring response -Continue antibiotics- Vancomycin to complete course. Monitor for toxicities -Trach care, airway clearance, secretion management( continue scopolamine and robinul) -CXR, ABG prn -Monitor WCC and trend fever curve -Continue contact isolation for MRSA -Discussed with primary attending-patient is DNAR -Continue all care as documented below. -Continue with MVS, Lung protective strategies, monitor airway pressures -VAP bundle addressed -Continue aspiration precautions, HOB>40 -Continue daily assessment for readiness for SBT -Continue Stress ulcer prophylaxis -Continue enteric nutritional support at goal rate. Monitor glycemic control, with target blood glucose 140-180 mg/dL while critically ill. -Avoid hypoglycemia - Continue to wean supplemental oxygen for target O2 sat's > 90% -Continue thiamine, multivitamin and electrolyte replacement -Continue to avoid nephrotoxins, adjust all medications for GFR and CrCL - Continue bronchodilators with pulmonary hygiene - Continue prn analgesia per CPOT score - Continue to maintain of sleep-wake cycle, avoid delirium - PT/OT/ROM exercises - Continue mobility protocol and skin assessment per protocol for pressure ulcer prevention - Continue to monitor for clinical seizures - continue other care per attending / other consultants CONDITION: FAIR PROGNOSIS: GUARDED CODE STATUS: DNAR Subjective Date of service: 12/26/19 Principal diagnosis: Ac cardiopulmonary arrest; Ac hypoxemic resp failure; Acute encephalopathy Interval history: Patient is seen today for: Acute cardiopulmonary arrest with ROSC; Acute hypoxemic respiratory failure; Acute metabolic-toxic encephalopathy; Ischemic hepatitis; Leucocytosis with lactic acidosis; Tobacco use disorder; Alcohol use Disorder; s/p tracheostomy Seen and examined at bedside; 24hour events reviewed; nursing and respiratory care staff consulted; no adverse overnight events reported to me; resting peacefully in bed; no new clinical issues, fevers are trending down. Remains on mechanical vent support, not tolerating weaning, mental status changes persist PUI?: No Objective Vital Signs - 12hr 12/25/19 12/25/19 12/25/19 23:30 23:32 23:45 Temperature Pulse Rate 105 H 106 H 106 H Pulse Rate [ From Monitor] Respiratory 26 H 26 H Rate Blood Pressure 133/81 133/81 135/80 O2 Sat by Pulse 100 100 100 Oximetry O2 Sat by Pulse Oximetry [ Assessment] 12/26/19 12/26/19 12/26/19 00:00 00:15 00:30 Temperature 98.3 F Pulse Rate 105 H 105 H 104 H Pulse Rate [ From Monitor] Respiratory 26 H 26 H 26 H Rate Blood Pressure 132/82 130/79 134/80 O2 Sat by Pulse 99 98 99 Oximetry O2 Sat by Pulse Oximetry [ Assessment] 12/26/19 12/26/19 12/26/19 00:31 00:45 01:00 Temperature Pulse Rate 104 H 103 H 106 H Pulse Rate [ 104 H From Monitor] Respiratory 26 H 26 H 26 H Rate Blood Pressure 126/78 115/70 O2 Sat by Pulse 100 98 98 Oximetry O2 Sat by Pulse Oximetry [ Assessment] 12/26/19 12/26/19 12/26/19 01:35 01:45 02:00 Temperature Pulse Rate 106 H 103 H 101 H Pulse Rate [ From Monitor] Respiratory 26 H 26 H 26 H Rate Blood Pressure 122/78 120/78 O2 Sat by Pulse 100 100 98 Oximetry O2 Sat by Pulse Oximetry [ Assessment] 12/26/19 12/26/19 12/26/19 02:15 02:30 02:45 Temperature Pulse Rate 100 H 100 H 100 H Pulse Rate [ From Monitor] Respiratory 26 H 26 H 26 H Rate Blood Pressure 119/76 129/83 128/80 O2 Sat by Pulse 97 96 93 Oximetry O2 Sat by Pulse Oximetry [ Assessment] 12/26/19 12/26/19 12/26/19 03:00 03:14 03:15 Temperature 98.6 F Pulse Rate 99 H 96 H Pulse Rate [ From Monitor] Respiratory 26 H 26 H Rate Blood Pressure 130/82 134/85 O2 Sat by Pulse 94 97 Oximetry O2 Sat by Pulse Oximetry [ Assessment] 12/26/19 12/26/19 12/26/19 03:30 03:45 04:00 Temperature Pulse Rate 97 H 99 H 99 H Pulse Rate [ From Monitor] Respiratory 26 H 26 H 26 H Rate Blood Pressure 135/87 140/89 144/91 O2 Sat by Pulse 99 100 100 Oximetry O2 Sat by Pulse Oximetry [ Assessment] 12/26/19 12/26/1920 04:15 04:39 04:45 Temperature Pulse Rate 99 H 99 H 98 H Pulse Rate [ From Monitor] Respiratory 26 H 26 H 26 H Rate Blood Pressure 140/90 140/88 O2 Sat by Pulse 100 100 100 Oximetry O2 Sat by Pulse Oximetry [ Assessment] 12/26/19 12/26/19 12/26/19 04:49 05:00 05:15 Temperature Pulse Rate 99 H 99 H 99 H Pulse Rate [ 104 H From Monitor] Respiratory 26 H 26 H Rate Blood Pressure 140/88 140/90 140/89 O2 Sat by Pulse 100 100 99 Oximetry O2 Sat by Pulse Oximetry [ Assessment] 12/26/19 12/26/19 12/26/19 05:30 05:45 06:00 Temperature Pulse Rate 98 H 100 H 102 H Pulse Rate [ From Monitor] Respiratory 26 H 26 H 26 H Rate Blood Pressure 139/89 140/92 138/89 O2 Sat by Pulse 98 100 100 Oximetry O2 Sat by Pulse Oximetry [ Assessment] 12/26/19 12/26/19 12/26/19 06:15 06:30 06:45 Temperature Pulse Rate 101 H 104 H 106 H Pulse Rate [ From Monitor] Respiratory 26 H 26 H 26 H Rate Blood Pressure 140/88 134/85 123/81 O2 Sat by Pulse 100 98 96 Oximetry O2 Sat by Pulse Oximetry [ Assessment] 12/26/19 12/26/19 12/26/19 07:00 07:15 07:30 Temperature Pulse Rate 105 H 103 H 101 H Pulse Rate [ From Monitor] Respiratory 26 H 26 H 26 H Rate Blood Pressure 120/77 119/77 121/79 O2 Sat by Pulse 95 95 95 Oximetry O2 Sat by Pulse Oximetry [ Assessment] 12/26/19 12/26/19 12/26/19 07:45 08:00 08:15 Temperature 98.2 F Pulse Rate 96 H 100 H 101 H Pulse Rate [ 98 H From Monitor] Respiratory 26 H 26 H 26 H Rate Blood Pressure 139/89 139/89 136/86 O2 Sat by Pulse 100 100 100 Oximetry O2 Sat by Pulse Oximetry [ Assessment] 12/26/19 12/26/19 12/26/19 08:30 08:34 08:35 Temperature Pulse Rate 102 H 102 H Pulse Rate [ From Monitor] Respiratory 26 H Rate Blood Pressure 139/92 138/89 O2 Sat by Pulse 100 100 Oximetry O2 Sat by Pulse 99 Oximetry [ Assessment] 12/26/19 12/26/19 12/26/19 08:45 09:00 09:15 Temperature Pulse Rate 104 H 102 H 106 H Pulse Rate [ From Monitor] Respiratory 26 H 26 H 23 Rate Blood Pressure 128/83 138/91 132/88 O2 Sat by Pulse 100 100 100 Oximetry O2 Sat by Pulse Oximetry [ Assessment] 12/26/19 12/26/19 12/26/19 09:30 09:45 10:00 Temperature Pulse Rate 103 H 103 H 105 H Pulse Rate [ From Monitor] Respiratory 26 H 26 H 26 H Rate Blood Pressure 135/89 138/91 128/81 O2 Sat by Pulse 100 100 99 Oximetry O2 Sat by Pulse Oximetry [ Assessment] 12/26/19 12/26/19 12/26/19 10:15 10:17 10:30 Temperature Pulse Rate 112 H 102 H 116 H Pulse Rate [ From Monitor] Respiratory 22 19 20 Rate Blood Pressure 133/83 138/91 121/74 O2 Sat by Pulse 99 100 99 Oximetry O2 Sat by Pulse Oximetry [ Assessment] 12/26/19 12/26/19 10:45 11:00 Temperature Pulse Rate 115 H 116 H Pulse Rate [ From Monitor] Respiratory 18 15 Rate Blood Pressure 125/78 125/78 O2 Sat by Pulse 98 99 Oximetry O2 Sat by Pulse Oximetry [ Assessment] Constitutional: no acute distress, other (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, with midline tracheostomy and no dys-synchrony, copious secretions) Eyes: non-icteric ENT: oropharynx moist, other (s/p trach) Neck: supple, no lymphadenopathy, no JVD Effort: normal Ascultation: Bilateral: diminished breath sounds, rhonchi Percussion: Bilateral: not dull Cardiovascular: regular rate and rhythm (tachycardia), other (S1,S2) Gastrointestinal: normoactive bowel sounds, soft, non-tender, non-distended Integumentary: normal Extremities: no cyanosis, no edema, pulses normal, no ischemia or petechiae Neurologic: unable to assess, other (unresponsive) Psychiatric: other (Psychiatric: Unable to assess) CBC and BMP: 12/27/19 03:42 12/27/19 03:42 ABG, PT/INR, D-dimer: ABG ABG pH 7.389 pH Units (7.350-7.450) 12/22/19 08:40 ABG pCO2 37.5 mm Hg 12/22/19 08:40 ABG pO2 75.6 mm Hg (80.0-90.0) L 12/22/19 08:40 ABG O2 Saturation 96.7 % (95.0-99.0) 12/22/19 08:40 PT/INR, D-dimer PT 17.0 Sec. (12.2-14.9) H 11/23/19 03:47 INR 1.36 (0.87-1.13) H 11/23/19 03:47 Abnormal lab findings: Abnormal Labs 11/22/19 11/22/19 11/22/19 23:17 23:18 23:27 WBC 21.2 H RBC 3.59 L Hgb 9.8 L Hct MCH 27 L RDW 18.6 H Plt Count 454 H Lymph % (Auto) [place] % (Auto) [place] # Seg Neutrophils % Seg Neuts % (Manual) 86.0 H Lymphocytes % (Manual) 9.0 L Monocytes % (Manual) Seg Neutrophils # Seg Neutrophils # Man 18.2 H Lymphocytes # (Manual) Monocytes # (Manual) 1.1 H Eosinophils # (Manual) Basophils # (Manual) PT INR APTT ABG pH ABG pO2 ABG HCO3 ABG O2 Saturation ABG Base Excess ABG Hemoglobin Oxyhemoglobin Sodium Potassium Chloride Carbon Dioxide BUN Creatinine Glucose POC Glucose 53 L Lactic Acid Calcium Ionized Calcium Phosphorus Magnesium Total Bilirubin AST ALT Alkaline Phosphatase Ammonia Total Creatine Kinase CK-MB (CK-2) CK-MB (CK-2) Rel Index Total Protein Albumin Urine WBC (Auto) 40.0 H Vancomycin Trough Salicylates Acetaminophen Plasma/Serum Alcohol Crossmatch 11/22/19 11/22/19 11/22/19 23:27 23:27 23:27 WBC RBC Hgb Hct MCH RDW Plt Count Lymph % (Auto) [place] % (Auto) [place] # Seg Neutrophils % Seg Neuts % (Manual) Lymphocytes % (Manual) Monocytes % (Manual) Seg Neutrophils # Seg Neutrophils # Man Lymphocytes # (Manual) Monocytes # (Manual) Eosinophils # (Manual) Basophils # (Manual) PT INR APTT ABG pH ABG pO2 ABG HCO3 ABG O2 Saturation ABG Base Excess ABG Hemoglobin Oxyhemoglobin Sodium Potassium 2.4 L* Chloride 85.1 L Carbon Dioxide 19 L BUN Creatinine 0.5 L Glucose 261 H POC Glucose Lactic Acid Calcium Ionized Calcium Phosphorus Magnesium Total Bilirubin AST 609 H ALT 152 H Alkaline Phosphatase 160 H Ammonia 117.0 H Total Creatine Kinase 139 H CK-MB (CK-2) 8.3 H CK-MB (CK-2) Rel Index 5.9 H Total Protein Albumin 3.6 L Urine WBC (Auto) Vancomycin Trough Salicylates < 0.3 L Acetaminophen Plasma/Serum Alcohol Crossmatch 11/22/19 11/22/19 11/23/19 23:27 23:27 01:10 WBC RBC Hgb Hct MCH RDW Plt Count Lymph % (Auto) [place] % (Auto) [place] # Seg Neutrophils % Seg Neuts % (Manual) Lymphocytes % (Manual) Monocytes % (Manual) Seg Neutrophils # Seg Neutrophils # Man Lymphocytes # (Manual) Monocytes # (Manual) Eosinophils # (Manual) Basophils # (Manual) PT INR APTT ABG pH 7.273 L ABG pO2 209.7 H ABG HCO3 ABG O2 Saturation 99.2 H ABG Base Excess -3.9 L ABG Hemoglobin 10.6 L Oxyhemoglobin 93.9 L Sodium Potassium Chloride Carbon Dioxide BUN Creatinine Glucose POC Glucose Lactic Acid Calcium Ionized Calcium Phosphorus Magnesium Total Bilirubin AST ALT Alkaline Phosphatase Ammonia Total Creatine Kinase CK-MB (CK-2) CK-MB (CK-2) Rel Index Total Protein Albumin Urine WBC (Auto) Vancomycin Trough Salicylates Acetaminophen < 5.0 L Plasma/Serum Alcohol 0.08 H Crossmatch 11/23/19 11/23/19 11/23/19 01:19 01:19 03:47 WBC RBC Hgb Hct MCH RDW Plt Count Lymph % (Auto) [place] % (Auto) [place] # Seg Neutrophils % Seg Neuts % (Manual) Lymphocytes % (Manual) Monocytes % (Manual) Seg Neutrophils # Seg Neutrophils # Man Lymphocytes # (Manual) Monocytes # (Manual) Eosinophils # (Manual) Basophils # (Manual) PT 16.3 H INR 1.29 H APTT ABG pH ABG pO2 ABG HCO3 ABG O2 Saturation ABG Base Excess ABG Hemoglobin Oxyhemoglobin Sodium Potassium Chloride Carbon Dioxide BUN Creatinine Glucose POC Glucose Lactic Acid 2.10 H* 5.00 H* Calcium Ionized Calcium Phosphorus Magnesium Total Bilirubin AST ALT Alkaline Phosphatase Ammonia Total Creatine Kinase CK-MB (CK-2) CK-MB (CK-2) Rel Index Total Protein Albumin Urine WBC (Auto) Vancomycin Trough Salicylates Acetaminophen Plasma/Serum Alcohol Crossmatch 11/23/19 11/23/19 11/23/19 03:47 03:47 04:53 WBC RBC Hgb 9.4 L Hct MCH RDW Plt Count Lymph % (Auto) [place] % (Auto) [place] # Seg Neutrophils % Seg Neuts % (Manual) Lymphocytes % (Manual) Monocytes % (Manual) Seg Neutrophils # Seg Neutrophils # Man Lymphocytes # (Manual) Monocytes # (Manual) Eosinophils # (Manual) Basophils # (Manual) PT 17.0 H INR 1.36 H APTT 128.2 H* ABG pH ABG pO2 ABG HCO3 ABG O2 Saturation ABG Base Excess ABG Hemoglobin Oxyhemoglobin Sodium Potassium Chloride Carbon Dioxide 18 L BUN Creatinine 0.5 L Glucose 105 H POC Glucose Lactic Acid Calcium 8.3 L Ionized Calcium Phosphorus 2.40 L Magnesium Total Bilirubin 1.30 H AST 761 H ALT 158 H Alkaline Phosphatase 143 H Ammonia Total Creatine Kinase CK-MB (CK-2) CK-MB (CK-2) Rel Index Total Protein Albumin 2.8 L Urine WBC (Auto) Vancomycin Trough Salicylates Acetaminophen Plasma/Serum Alcohol Crossmatch 11/23/19 11/23/19 11/23/19 05:12 06:32 06:32 WBC 16.8 H RBC 3.31 L Hgb 8.9 L Hct 28.7 L MCH 27 L RDW 18.6 H Plt Count Lymph % (Auto) [place] % (Auto) [place] # Seg Neutrophils % Seg Neuts % (Manual) 94.0 H Lymphocytes % (Manual) 1.0 L Monocytes % (Manual) Seg Neutrophils # Seg Neutrophils # Man 15.8 H Lymphocytes # (Manual) 0.2 L Monocytes # (Manual) Eosinophils # (Manual) Basophils # (Manual) PT INR APTT ABG pH ABG pO2 ABG HCO3 ABG O2 Saturation ABG Base Excess -3.2 L ABG Hemoglobin 9.0 L Oxyhemoglobin 93.6 L Sodium Potassium Chloride Carbon Dioxide BUN Creatinine Glucose POC Glucose Lactic Acid Calcium Ionized Calcium 4.5 L Phosphorus Magnesium Total Bilirubin AST ALT Alkaline Phosphatase Ammonia Total Creatine Kinase CK-MB (CK-2) CK-MB (CK-2) Rel Index Total Protein Albumin Urine WBC (Auto) Vancomycin Trough Salicylates Acetaminophen Plasma/Serum Alcohol Crossmatch 11/23/19 11/24/19 11/24/19 06:32 04:35 04:35 WBC RBC Hgb Hct MCH RDW Plt Count Lymph % (Auto) [place] % (Auto) [place] # Seg Neutrophils % Seg Neuts % (Manual) Lymphocytes % (Manual) Monocytes % (Manual) Seg Neutrophils # Seg Neutrophils # Man Lymphocytes # (Manual) Monocytes # (Manual) Eosinophils # (Manual) Basophils # (Manual) PT INR APTT ABG pH ABG pO2 ABG HCO3 ABG O2 Saturation ABG Base Excess ABG Hemoglobin Oxyhemoglobin Sodium Potassium Chloride Carbon Dioxide BUN Creatinine Glucose POC Glucose Lactic Acid 3.30 H* Calcium Ionized Calcium Phosphorus Magnesium 1.40 L Total Bilirubin AST ALT Alkaline Phosphatase Ammonia 98.0 H Total Creatine Kinase CK-MB (CK-2) CK-MB (CK-2) Rel Index Total Protein Albumin Urine WBC (Auto) Vancomycin Trough Salicylates Acetaminophen Plasma/Serum Alcohol Crossmatch 11/24/19 11/25/19 11/25/19 05:22 04:34 05:05 WBC 17.3 H RBC 2.88 L Hgb 7.8 L Hct 24.6 L MCH 27 L RDW 18.5 H Plt Count Lymph % (Auto) 7.7 L [place] % (Auto) 9.7 H [place] # 1.7 H Seg Neutrophils % 82.2 H Seg Neuts % (Manual) Lymphocytes % (Manual) Monocytes % (Manual) Seg Neutrophils # 14.2 H Seg Neutrophils # Man Lymphocytes # (Manual) Monocytes # (Manual) Eosinophils # (Manual) Basophils # (Manual) PT INR APTT ABG pH 7.475 H ABG pO2 ABG HCO3 29.4 H 32.3 H ABG O2 Saturation ABG Base Excess 5.4 H 6.9 H ABG Hemoglobin 9.0 L 10.6 L Oxyhemoglobin 94.3 L Sodium Potassium Chloride Carbon Dioxide BUN Creatinine Glucose POC Glucose Lactic Acid Calcium Ionized Calcium Phosphorus Magnesium Total Bilirubin AST ALT Alkaline Phosphatase Ammonia Total Creatine Kinase CK-MB (CK-2) CK-MB (CK-2) Rel Index Total Protein Albumin Urine WBC (Auto) Vancomycin Trough Salicylates Acetaminophen Plasma/Serum Alcohol Crossmatch 11/25/19 11/25/19 11/26/19 05:05 22:46 03:31 WBC RBC Hgb Hct MCH RDW Plt Count Lymph % (Auto) [place] % (Auto) [place] # Seg Neutrophils % Seg Neuts % (Manual) Lymphocytes % (Manual) Monocytes % (Manual) Seg Neutrophils # Seg Neutrophils # Man Lymphocytes # (Manual) Monocytes # (Manual) Eosinophils # (Manual) Basophils # (Manual) PT INR APTT ABG pH 7.459 H ABG pO2 ABG HCO3 34.2 H ABG O2 Saturation ABG Base Excess 9.4 H ABG Hemoglobin 7.6 L Oxyhemoglobin 94.8 L Sodium 152 H D 147 H Potassium 2.3 L* D 2.8 L* D Chloride 107.8 H Carbon Dioxide 31 H D 33 H BUN Creatinine 0.6 L 0.6 L Glucose 148 H 177 H POC Glucose Lactic Acid Calcium Ionized Calcium Phosphorus Magnesium Total Bilirubin AST 105 H ALT 71 H Alkaline Phosphatase 155 H Ammonia Total Creatine Kinase CK-MB (CK-2) CK-MB (CK-2) Rel Index Total Protein 5.2 L D Albumin 2.9 L Urine WBC (Auto) Vancomycin Trough Salicylates Acetaminophen Plasma/Serum Alcohol Crossmatch 11/26/19 11/26/19 11/27/19 08:24 08:24 04:20 WBC 12.0 H RBC 3.00 L Hgb 8.0 L 9.3 L Hct 25.9 L 29.7 L MCH 27 L RDW 18.5 H Plt Count Lymph % (Auto) [place] % (Auto) [place] # Seg Neutrophils % Seg Neuts % (Manual) 89.0 H Lymphocytes % (Manual) 4.0 L Monocytes % (Manual) Seg Neutrophils # Seg Neutrophils # Man 10.7 H Lymphocytes # (Manual) 0.5 L Monocytes # (Manual) Eosinophils # (Manual) Basophils # (Manual) PT INR APTT ABG pH ABG pO2 ABG HCO3 ABG O2 Saturation ABG Base Excess ABG Hemoglobin Oxyhemoglobin Sodium 146 H Potassium 3.4 L D Chloride Carbon Dioxide BUN Creatinine 0.5 L Glucose 165 H POC Glucose Lactic Acid Calcium Ionized Calcium Phosphorus Magnesium Total Bilirubin AST 57 H ALT Alkaline Phosphatase 166 H Ammonia Total Creatine Kinase CK-MB (CK-2) CK-MB (CK-2) Rel Index Total Protein Albumin 2.9 L Urine WBC (Auto) Vancomycin Trough Salicylates Acetaminophen Plasma/Serum Alcohol Crossmatch 11/27/19 11/27/19 11/27/19 04:28 04:28 04:42 WBC RBC Hgb Hct MCH RDW Plt Count Lymph % (Auto) [place] % (Auto) [place] # Seg Neutrophils % Seg Neuts % (Manual) Lymphocytes % (Manual) Monocytes % (Manual) Seg Neutrophils # Seg Neutrophils # Man Lymphocytes # (Manual) Monocytes # (Manual) Eosinophils # (Manual) Basophils # (Manual) PT INR APTT ABG pH 7.470 H ABG pO2 74.0 L ABG HCO3 33.8 H ABG O2 Saturation ABG Base Excess 9.1 H ABG Hemoglobin 8.7 L Oxyhemoglobin 94.7 L Sodium 146 H Potassium 2.9 L* Chloride Carbon Dioxide BUN 25 H Creatinine Glucose 213 H POC Glucose Lactic Acid Calcium Ionized Calcium Phosphorus 1.00 L Magnesium Total Bilirubin AST ALT Alkaline Phosphatase Ammonia Total Creatine Kinase CK-MB (CK-2) CK-MB (CK-2) Rel Index Total Protein Albumin Urine WBC (Auto) Vancomycin Trough Salicylates Acetaminophen Plasma/Serum Alcohol Crossmatch 11/27/19 11/27/19 11/27/19 05:37 12:20 15:46 WBC RBC Hgb Hct MCH RDW Plt Count Lymph % (Auto) [place] % (Auto) [place] # Seg Neutrophils % Seg Neuts % (Manual) Lymphocytes % (Manual) Monocytes % (Manual) Seg Neutrophils # Seg Neutrophils # Man Lymphocytes # (Manual) Monocytes # (Manual) Eosinophils # (Manual) Basophils # (Manual) PT INR APTT ABG pH ABG pO2 ABG HCO3 ABG O2 Saturation ABG Base Excess ABG Hemoglobin Oxyhemoglobin Sodium 146 H Potassium 3.5 L D Chloride Carbon Dioxide BUN 24 H Creatinine 0.6 L Glucose 187 H POC Glucose 117 H 220 H Lactic Acid Calcium Ionized Calcium Phosphorus Magnesium Total Bilirubin AST ALT Alkaline Phosphatase Ammonia Total Creatine Kinase CK-MB (CK-2) CK-MB (CK-2) Rel Index Total Protein Albumin Urine WBC (Auto) Vancomycin Trough Salicylates Acetaminophen Plasma/Serum Alcohol Crossmatch 11/27/19 11/28/19 11/28/19 17:28 05:00 05:02 WBC RBC Hgb Hct MCH RDW Plt Count Lymph % (Auto) [place] % (Auto) [place] # Seg Neutrophils % Seg Neuts % (Manual) Lymphocytes % (Manual) Monocytes % (Manual) Seg Neutrophils # Seg Neutrophils # Man Lymphocytes # (Manual) Monocytes # (Manual) Eosinophils # (Manual) Basophils # (Manual) PT INR APTT ABG pH ABG pO2 72.4 L ABG HCO3 33.6 H ABG O2 Saturation 94.1 L ABG Base Excess 7.3 H ABG Hemoglobin Oxyhemoglobin 91.8 L Sodium 146 H Potassium 3.3 L Chloride Carbon Dioxide BUN 25 H Creatinine 0.6 L Glucose 176 H POC Glucose 198 H Lactic Acid Calcium Ionized Calcium Phosphorus Magnesium Total Bilirubin AST ALT Alkaline Phosphatase Ammonia Total Creatine Kinase CK-MB (CK-2) CK-MB (CK-2) Rel Index Total Protein Albumin Urine WBC (Auto) Vancomycin Trough Salicylates Acetaminophen Plasma/Serum Alcohol Crossmatch 11/28/19 11/28/19 11/29/19 05:02 18:55 10:43 WBC 15.2 H 19.0 H RBC 3.06 L 3.01 L Hgb 8.3 L 8.3 L Hct 27.0 L 26.4 L MCH 27 L RDW 19.0 H 19.7 H Plt Count 479 H 611 H Lymph % (Auto) [place] % (Auto) [place] # Seg Neutrophils % Seg Neuts % (Manual) 92.0 H Lymphocytes % (Manual) 2.0 L Monocytes % (Manual) Seg Neutrophils # Seg Neutrophils # Man 14.0 H Lymphocytes # (Manual) 0.3 L Monocytes # (Manual) Eosinophils # (Manual) Basophils # (Manual) PT INR APTT ABG pH ABG pO2 ABG HCO3 ABG O2 Saturation ABG Base Excess ABG Hemoglobin Oxyhemoglobin Sodium Potassium Chloride Carbon Dioxide BUN Creatinine Glucose POC Glucose 138 H Lactic Acid Calcium Ionized Calcium Phosphorus Magnesium Total Bilirubin AST ALT Alkaline Phosphatase Ammonia Total Creatine Kinase CK-MB (CK-2) CK-MB (CK-2) Rel Index Total Protein Albumin Urine WBC (Auto) Vancomycin Trough Salicylates Acetaminophen Plasma/Serum Alcohol Crossmatch 11/29/19 11/29/19 11/29/19 10:43 12:27 19:25 WBC RBC Hgb Hct MCH RDW Plt Count Lymph % (Auto) [place] % (Auto) [place] # Seg Neutrophils % Seg Neuts % (Manual) Lymphocytes % (Manual) Monocytes % (Manual) Seg Neutrophils # Seg Neutrophils # Man Lymphocytes # (Manual) Monocytes # (Manual) Eosinophils # (Manual) Basophils # (Manual) PT INR APTT ABG pH ABG pO2 ABG HCO3 ABG O2 Saturation ABG Base Excess ABG Hemoglobin Oxyhemoglobin Sodium Potassium 2.8 L* Chloride Carbon Dioxide BUN 20 H Creatinine 0.5 L Glucose 121 H POC Glucose 128 H 120 H Lactic Acid Calcium Ionized Calcium Phosphorus Magnesium Total Bilirubin AST ALT Alkaline Phosphatase Ammonia Total Creatine Kinase CK-MB (CK-2) CK-MB (CK-2) Rel Index Total Protein Albumin Urine WBC (Auto) Vancomycin Trough Salicylates Acetaminophen Plasma/Serum Alcohol Crossmatch 11/29/19 11/30/19 11/30/19 23:46 04:10 05:02 WBC RBC Hgb Hct MCH RDW Plt Count Lymph % (Auto) [place] % (Auto) [place] # Seg Neutrophils % Seg Neuts % (Manual) Lymphocytes % (Manual) Monocytes % (Manual) Seg Neutrophils # Seg Neutrophils # Man Lymphocytes # (Manual) Monocytes # (Manual) Eosinophils # (Manual) Basophils # (Manual) PT INR APTT ABG pH ABG pO2 76.3 L ABG HCO3 32.5 H ABG O2 Saturation ABG Base Excess 6.9 H ABG Hemoglobin 8.0 L Oxyhemoglobin 92.6 L Sodium Potassium Chloride Carbon Dioxide BUN Creatinine Glucose POC Glucose 116 H 128 H Lactic Acid Calcium Ionized Calcium Phosphorus Magnesium Total Bilirubin AST ALT Alkaline Phosphatase Ammonia Total Creatine Kinase CK-MB (CK-2) CK-MB (CK-2) Rel Index Total Protein Albumin Urine WBC (Auto) Vancomycin Trough Salicylates Acetaminophen Plasma/Serum Alcohol Crossmatch 11/30/19 11/30/19 11/30/19 05:25 05:25 12:59 WBC 18.4 H RBC 3.10 L Hgb 8.5 L Hct 27.5 L MCH 27 L RDW 20.9 H Plt Count 691 H Lymph % (Auto) 7.1 L [place] % (Auto) 7.7 H [place] # 1.4 H Seg Neutrophils % 83.4 H Seg Neuts % (Manual) Lymphocytes % (Manual) Monocytes % (Manual) Seg Neutrophils # 15.4 H Seg Neutrophils # Man Lymphocytes # (Manual) Monocytes # (Manual) Eosinophils # (Manual) Basophils # (Manual) PT INR APTT ABG pH ABG pO2 ABG HCO3 ABG O2 Saturation ABG Base Excess ABG Hemoglobin Oxyhemoglobin Sodium 146 H Potassium Chloride 107.2 H Carbon Dioxide BUN Creatinine 0.5 L Glucose 132 H POC Glucose 124 H Lactic Acid Calcium Ionized Calcium Phosphorus Magnesium Total Bilirubin AST 246 H ALT 274 H Alkaline Phosphatase 203 H Ammonia Total Creatine Kinase CK-MB (CK-2) CK-MB (CK-2) Rel Index Total Protein 5.4 L Albumin 2.9 L Urine WBC (Auto) Vancomycin Trough Salicylates Acetaminophen Plasma/Serum Alcohol Crossmatch 11/30/19 12/01/19 12/01/19 17:53 00:05 05:10 WBC RBC Hgb Hct MCH RDW Plt Count Lymph % (Auto) [place] % (Auto) [place] # Seg Neutrophils % Seg Neuts % (Manual) Lymphocytes % (Manual) Monocytes % (Manual) Seg Neutrophils # Seg Neutrophils # Man Lymphocytes # (Manual) Monocytes # (Manual) Eosinophils # (Manual) Basophils # (Manual) PT INR APTT ABG pH ABG pO2 ABG HCO3 ABG O2 Saturation ABG Base Excess ABG Hemoglobin Oxyhemoglobin Sodium Potassium Chloride Carbon Dioxide BUN Creatinine Glucose POC Glucose 113 H 143 H 145 H Lactic Acid Calcium Ionized Calcium Phosphorus Magnesium Total Bilirubin AST ALT Alkaline Phosphatase Ammonia Total Creatine Kinase CK-MB (CK-2) CK-MB (CK-2) Rel Index Total Protein Albumin Urine WBC (Auto) Vancomycin Trough Salicylates Acetaminophen Plasma/Serum Alcohol Crossmatch 12/01/19 12/01/19 12/01/19 05:33 08:23 08:23 WBC 22.7 H RBC 2.88 L Hgb 7.9 L Hct 25.2 L MCH 27 L RDW 21.0 H Plt Count 732 H Lymph % (Auto) [place] % (Auto) [place] # Seg Neutrophils % Seg Neuts % (Manual) 91.0 H Lymphocytes % (Manual) 3.0 L Monocytes % (Manual) Seg Neutrophils # Seg Neutrophils # Man 20.7 H Lymphocytes # (Manual) 0.7 L Monocytes # (Manual) 1.1 H Eosinophils # (Manual) Basophils # (Manual) PT INR APTT ABG pH ABG pO2 68.6 L ABG HCO3 34.1 H ABG O2 Saturation ABG Base Excess 9.0 H ABG Hemoglobin 6.5 L Oxyhemoglobin 94.7 L Sodium Potassium Chloride Carbon Dioxide BUN Creatinine 0.5 L Glucose 125 H POC Glucose Lactic Acid Calcium Ionized Calcium Phosphorus Magnesium Total Bilirubin AST ALT Alkaline Phosphatase Ammonia Total Creatine Kinase CK-MB (CK-2) CK-MB (CK-2) Rel Index Total Protein Albumin Urine WBC (Auto) Vancomycin Trough Salicylates Acetaminophen Plasma/Serum Alcohol Crossmatch 12/01/19 12/01/19 12/01/19 13:21 17:54 20:59 WBC RBC Hgb Hct MCH RDW Plt Count Lymph % (Auto) [place] % (Auto) [place] # Seg Neutrophils % Seg Neuts % (Manual) Lymphocytes % (Manual) Monocytes % (Manual) Seg Neutrophils # Seg Neutrophils # Man Lymphocytes # (Manual) Monocytes # (Manual) Eosinophils # (Manual) Basophils # (Manual) PT INR APTT ABG pH ABG pO2 78.3 L ABG HCO3 33.8 H ABG O2 Saturation 94.9 L ABG Base Excess 7.9 H ABG Hemoglobin 11.5 L Oxyhemoglobin 92.3 L Sodium Potassium Chloride Carbon Dioxide BUN Creatinine Glucose POC Glucose 111 H 115 H Lactic Acid Calcium Ionized Calcium Phosphorus Magnesium Total Bilirubin AST ALT Alkaline Phosphatase Ammonia Total Creatine Kinase CK-MB (CK-2) CK-MB (CK-2) Rel Index Total Protein Albumin Urine WBC (Auto) Vancomycin Trough Salicylates Acetaminophen Plasma/Serum Alcohol Crossmatch 12/02/19 12/03/19 12/04/19 12:55 20:00 04:26 WBC 15.2 H RBC 2.69 L Hgb 7.4 L Hct 23.6 L MCH 27 L RDW 19.9 H Plt Count 838 H Lymph % (Auto) [place] % (Auto) [place] # Seg Neutrophils % Seg Neuts % (Manual) Lymphocytes % (Manual) Monocytes % (Manual) Seg Neutrophils # Seg Neutrophils # Man Lymphocytes # (Manual) Monocytes # (Manual) Eosinophils # (Manual) Basophils # (Manual) PT INR APTT ABG pH ABG pO2 68.3 L ABG HCO3 33.5 H ABG O2 Saturation 93.5 L ABG Base Excess 8.4 H ABG Hemoglobin 7.3 L Oxyhemoglobin 90.9 L Sodium Potassium Chloride Carbon Dioxide BUN Creatinine Glucose POC Glucose 107 H Lactic Acid Calcium Ionized Calcium Phosphorus Magnesium Total Bilirubin AST ALT Alkaline Phosphatase Ammonia Total Creatine Kinase CK-MB (CK-2) CK-MB (CK-2) Rel Index Total Protein Albumin Urine WBC (Auto) Vancomycin Trough Salicylates Acetaminophen Plasma/Serum Alcohol Crossmatch 12/04/19 12/04/19 12/04/19 04:26 07:45 12:02 WBC 15.9 H RBC 2.88 L Hgb 7.9 L Hct 25.1 L MCH RDW 20.4 H Plt Count 839 H Lymph % (Auto) 11.3 L [place] % (Auto) 15.2 H [place] # 2.4 H Seg Neutrophils % 72.4 H Seg Neuts % (Manual) Lymphocytes % (Manual) Monocytes % (Manual) Seg Neutrophils # 11.5 H Seg Neutrophils # Man Lymphocytes # (Manual) Monocytes # (Manual) Eosinophils # (Manual) Basophils # (Manual) PT INR APTT ABG pH ABG pO2 ABG HCO3 ABG O2 Saturation ABG Base Excess ABG Hemoglobin Oxyhemoglobin Sodium Potassium Chloride 96.5 L Carbon Dioxide BUN 21 H Creatinine 0.6 L Glucose 107 H POC Glucose 138 H Lactic Acid Calcium Ionized Calcium Phosphorus Magnesium Total Bilirubin AST ALT Alkaline Phosphatase Ammonia Total Creatine Kinase CK-MB (CK-2) CK-MB (CK-2) Rel Index Total Protein Albumin Urine WBC (Auto) Vancomycin Trough Salicylates Acetaminophen Plasma/Serum Alcohol Crossmatch 12/04/19 12/05/19 12/05/19 18:16 11:55 18:36 WBC RBC Hgb Hct MCH RDW Plt Count Lymph % (Auto) [place] % (Auto) [place] # Seg Neutrophils % Seg Neuts % (Manual) Lymphocytes % (Manual) Monocytes % (Manual) Seg Neutrophils # Seg Neutrophils # Man Lymphocytes # (Manual) Monocytes # (Manual) Eosinophils # (Manual) Basophils # (Manual) PT INR APTT ABG pH ABG pO2 ABG HCO3 ABG O2 Saturation ABG Base Excess ABG Hemoglobin Oxyhemoglobin Sodium Potassium Chloride Carbon Dioxide BUN Creatinine Glucose POC Glucose 135 H 125 H 135 H Lactic Acid Calcium Ionized Calcium Phosphorus Magnesium Total Bilirubin AST ALT Alkaline Phosphatase Ammonia Total Creatine Kinase CK-MB (CK-2) CK-MB (CK-2) Rel Index Total Protein Albumin Urine WBC (Auto) Vancomycin Trough Salicylates Acetaminophen Plasma/Serum Alcohol Crossmatch 12/05/19 12/06/19 12/06/19 23:30 04:14 05:43 WBC RBC Hgb Hct MCH RDW Plt Count Lymph % (Auto) [place] % (Auto) [place] # Seg Neutrophils % Seg Neuts % (Manual) Lymphocytes % (Manual) Monocytes % (Manual) Seg Neutrophils # Seg Neutrophils # Man Lymphocytes # (Manual) Monocytes # (Manual) Eosinophils # (Manual) Basophils # (Manual) PT INR APTT ABG pH ABG pO2 ABG HCO3 ABG O2 Saturation ABG Base Excess ABG Hemoglobin Oxyhemoglobin Sodium Potassium 5.6 H Chloride 95.0 L Carbon Dioxide BUN 48 H Creatinine 1.3 H D Glucose POC Glucose 126 H 121 H Lactic Acid Calcium Ionized Calcium Phosphorus Magnesium Total Bilirubin AST 89 H ALT 98 H Alkaline Phosphatase 476 H Ammonia Total Creatine Kinase CK-MB (CK-2) CK-MB (CK-2) Rel Index Total Protein Albumin 2.8 L Urine WBC (Auto) Vancomycin Trough Salicylates Acetaminophen Plasma/Serum Alcohol Crossmatch 12/06/19 12/06/19 12/07/19 10:39 14:34 00:19 WBC 17.3 H RBC 2.60 L Hgb 7.1 L Hct 22.7 L MCH 27 L RDW 20.1 H Plt Count 832 H Lymph % (Auto) [place] % (Auto) [place] # Seg Neutrophils % Seg Neuts % (Manual) Lymphocytes % (Manual) Monocytes % (Manual) Seg Neutrophils # Seg Neutrophils # Man Lymphocytes # (Manual) Monocytes # (Manual) Eosinophils # (Manual) Basophils # (Manual) PT INR APTT ABG pH ABG pO2 ABG HCO3 ABG O2 Saturation ABG Base Excess ABG Hemoglobin Oxyhemoglobin Sodium Potassium Chloride Carbon Dioxide BUN Creatinine Glucose POC Glucose 128 H 136 H Lactic Acid Calcium Ionized Calcium Phosphorus Magnesium Total Bilirubin AST ALT Alkaline Phosphatase Ammonia Total Creatine Kinase CK-MB (CK-2) CK-MB (CK-2) Rel Index Total Protein Albumin Urine WBC (Auto) Vancomycin Trough Salicylates Acetaminophen Plasma/Serum Alcohol Crossmatch 12/07/19 12/07/19 12/07/19 03:44 03:44 05:53 WBC 16.2 H RBC 2.56 L Hgb 7.1 L Hct 22.3 L MCH RDW 19.4 H Plt Count 782 H Lymph % (Auto) [place] % (Auto) [place] # Seg Neutrophils % Seg Neuts % (Manual) Lymphocytes % (Manual) Monocytes % (Manual) Seg Neutrophils # Seg Neutrophils # Man Lymphocytes # (Manual) Monocytes # (Manual) Eosinophils # (Manual) Basophils # (Manual) PT INR APTT ABG pH ABG pO2 ABG HCO3 ABG O2 Saturation ABG Base Excess ABG Hemoglobin Oxyhemoglobin Sodium Potassium Chloride 95.6 L Carbon Dioxide BUN 56 H Creatinine 1.4 H Glucose 120 H POC Glucose 128 H Lactic Acid Calcium 10.3 H Ionized Calcium Phosphorus Magnesium Total Bilirubin AST ALT Alkaline Phosphatase Ammonia Total Creatine Kinase CK-MB (CK-2) CK-MB (CK-2) Rel Index Total Protein Albumin Urine WBC (Auto) Vancomycin Trough Salicylates Acetaminophen Plasma/Serum Alcohol Crossmatch 12/07/19 12/07/19 12/08/19 12:54 23:47 00:20 WBC RBC Hgb Hct MCH RDW Plt Count Lymph % (Auto) [place] % (Auto) [place] # Seg Neutrophils % Seg Neuts % (Manual) Lymphocytes % (Manual) Monocytes % (Manual) Seg Neutrophils # Seg Neutrophils # Man Lymphocytes # (Manual) Monocytes # (Manual) Eosinophils # (Manual) Basophils # (Manual) PT INR APTT ABG pH ABG pO2 ABG HCO3 ABG O2 Saturation ABG Base Excess ABG Hemoglobin Oxyhemoglobin Sodium Potassium Chloride Carbon Dioxide BUN Creatinine Glucose POC Glucose 128 H 130 H 124 H Lactic Acid Calcium Ionized Calcium Phosphorus Magnesium Total Bilirubin AST ALT Alkaline Phosphatase Ammonia Total Creatine Kinase CK-MB (CK-2) CK-MB (CK-2) Rel Index Total Protein Albumin Urine WBC (Auto) Vancomycin Trough Salicylates Acetaminophen Plasma/Serum Alcohol Crossmatch 12/08/19 12/08/19 12/08/19 06:38 12:04 18:26 WBC RBC Hgb Hct MCH RDW Plt Count Lymph % (Auto) [place] % (Auto) [place] # Seg Neutrophils % Seg Neuts % (Manual) Lymphocytes % (Manual) Monocytes % (Manual) Seg Neutrophils # Seg Neutrophils # Man Lymphocytes # (Manual) Monocytes # (Manual) Eosinophils # (Manual) Basophils # (Manual) PT INR APTT ABG pH ABG pO2 ABG HCO3 ABG O2 Saturation ABG Base Excess ABG Hemoglobin Oxyhemoglobin Sodium Potassium Chloride Carbon Dioxide BUN Creatinine Glucose POC Glucose 137 H 129 H 150 H Lactic Acid Calcium Ionized Calcium Phosphorus Magnesium Total Bilirubin AST ALT Alkaline Phosphatase Ammonia Total Creatine Kinase CK-MB (CK-2) CK-MB (CK-2) Rel Index Total Protein Albumin Urine WBC (Auto) Vancomycin Trough Salicylates Acetaminophen Plasma/Serum Alcohol Crossmatch 12/09/19 12/09/19 12/09/19 00:56 05:34 06:13 WBC RBC Hgb Hct MCH RDW Plt Count Lymph % (Auto) [place] % (Auto) [place] # Seg Neutrophils % Seg Neuts % (Manual) Lymphocytes % (Manual) Monocytes % (Manual) Seg Neutrophils # Seg Neutrophils # Man Lymphocytes # (Manual) Monocytes # (Manual) Eosinophils # (Manual) Basophils # (Manual) PT INR APTT ABG pH ABG pO2 ABG HCO3 ABG O2 Saturation ABG Base Excess ABG Hemoglobin Oxyhemoglobin Sodium 146 H Potassium Chloride Carbon Dioxide BUN 66 H Creatinine 1.9 H Glucose 116 H POC Glucose 130 H 130 H Lactic Acid Calcium Ionized Calcium Phosphorus Magnesium Total Bilirubin AST ALT Alkaline Phosphatase Ammonia Total Creatine Kinase CK-MB (CK-2) CK-MB (CK-2) Rel Index Total Protein Albumin Urine WBC (Auto) Vancomycin Trough Salicylates Acetaminophen Plasma/Serum Alcohol Crossmatch 12/09/19 12/09/19 12/10/19 11:52 17:50 00:14 WBC RBC Hgb Hct MCH RDW Plt Count Lymph % (Auto) [place] % (Auto) [place] # Seg Neutrophils % Seg Neuts % (Manual) Lymphocytes % (Manual) Monocytes % (Manual) Seg Neutrophils # Seg Neutrophils # Man Lymphocytes # (Manual) Monocytes # (Manual) Eosinophils # (Manual) Basophils # (Manual) PT INR APTT ABG pH ABG pO2 ABG HCO3 ABG O2 Saturation ABG Base Excess ABG Hemoglobin Oxyhemoglobin Sodium Potassium Chloride Carbon Dioxide BUN Creatinine Glucose POC Glucose 135 H 120 H 116 H Lactic Acid Calcium Ionized Calcium Phosphorus Magnesium Total Bilirubin AST ALT Alkaline Phosphatase Ammonia Total Creatine Kinase CK-MB (CK-2) CK-MB (CK-2) Rel Index Total Protein Albumin Urine WBC (Auto) Vancomycin Trough Salicylates Acetaminophen Plasma/Serum Alcohol Crossmatch 12/10/19 12/10/19 12/10/19 05:38 11:38 17:34 WBC RBC Hgb Hct MCH RDW Plt Count Lymph % (Auto) [place] % (Auto) [place] # Seg Neutrophils % Seg Neuts % (Manual) Lymphocytes % (Manual) Monocytes % (Manual) Seg Neutrophils # Seg Neutrophils # Man Lymphocytes # (Manual) Monocytes # (Manual) Eosinophils # (Manual) Basophils # (Manual) PT INR APTT ABG pH ABG pO2 ABG HCO3 ABG O2 Saturation ABG Base Excess ABG Hemoglobin Oxyhemoglobin Sodium Potassium Chloride Carbon Dioxide BUN Creatinine Glucose POC Glucose 115 H 112 H 130 H Lactic Acid Calcium Ionized Calcium Phosphorus Magnesium Total Bilirubin AST ALT Alkaline Phosphatase Ammonia Total Creatine Kinase CK-MB (CK-2) CK-MB (CK-2) Rel Index Total Protein Albumin Urine WBC (Auto) Vancomycin Trough Salicylates Acetaminophen Plasma/Serum Alcohol Crossmatch 12/11/19 12/11/19 12/11/19 00:20 05:31 12:22 WBC RBC Hgb Hct MCH RDW Plt Count Lymph % (Auto) [place] % (Auto) [place] # Seg Neutrophils % Seg Neuts % (Manual) Lymphocytes % (Manual) Monocytes % (Manual) Seg Neutrophils # Seg Neutrophils # Man Lymphocytes # (Manual) Monocytes # (Manual) Eosinophils # (Manual) Basophils # (Manual) PT INR APTT ABG pH ABG pO2 ABG HCO3 ABG O2 Saturation ABG Base Excess ABG Hemoglobin Oxyhemoglobin Sodium Potassium Chloride Carbon Dioxide BUN Creatinine Glucose POC Glucose 124 H 132 H 128 H Lactic Acid Calcium Ionized Calcium Phosphorus Magnesium Total Bilirubin AST ALT Alkaline Phosphatase Ammonia Total Creatine Kinase CK-MB (CK-2) CK-MB (CK-2) Rel Index Total Protein Albumin Urine WBC (Auto) Vancomycin Trough Salicylates Acetaminophen Plasma/Serum Alcohol Crossmatch 12/11/19 12/11/19 12/12/19 18:04 23:42 03:51 WBC RBC Hgb Hct MCH RDW Plt Count Lymph % (Auto) [place] % (Auto) [place] # Seg Neutrophils % Seg Neuts % (Manual) Lymphocytes % (Manual) Monocytes % (Manual) Seg Neutrophils # Seg Neutrophils # Man Lymphocytes # (Manual) Monocytes # (Manual) Eosinophils # (Manual) Basophils # (Manual) PT INR APTT ABG pH ABG pO2 ABG HCO3 ABG O2 Saturation ABG Base Excess ABG Hemoglobin Oxyhemoglobin Sodium 149 H Potassium Chloride Carbon Dioxide 20 L D BUN 77 H Creatinine 2.8 H Glucose POC Glucose 133 H 154 H Lactic Acid Calcium Ionized Calcium Phosphorus Magnesium Total Bilirubin AST ALT Alkaline Phosphatase Ammonia Total Creatine Kinase CK-MB (CK-2) CK-MB (CK-2) Rel Index Total Protein Albumin Urine WBC (Auto) Vancomycin Trough Salicylates Acetaminophen Plasma/Serum Alcohol Crossmatch 12/12/19 12/12/19 12/12/19 05:18 05:26 10:30 WBC 18.0 H RBC 2.51 L Hgb 6.8 L Hct 22.0 L MCH 27 L RDW 19.9 H Plt Count 582 H Lymph % (Auto) [place] % (Auto) [place] # Seg Neutrophils % Seg Neuts % (Manual) Lymphocytes % (Manual) Monocytes % (Manual) Seg Neutrophils # Seg Neutrophils # Man Lymphocytes # (Manual) Monocytes # (Manual) Eosinophils # (Manual) Basophils # (Manual) PT INR APTT ABG pH ABG pO2 ABG HCO3 ABG O2 Saturation ABG Base Excess ABG Hemoglobin Oxyhemoglobin Sodium Potassium Chloride Carbon Dioxide BUN Creatinine Glucose POC Glucose 135 H Lactic Acid Calcium Ionized Calcium Phosphorus Magnesium Total Bilirubin AST ALT Alkaline Phosphatase Ammonia Total Creatine Kinase CK-MB (CK-2) CK-MB (CK-2) Rel Index Total Protein Albumin Urine WBC (Auto) Vancomycin Trough Salicylates Acetaminophen Plasma/Serum Alcohol Crossmatch See Detail 12/12/19 12/12/19 12/12/19 11:44 18:10 23:21 WBC RBC Hgb Hct MCH RDW Plt Count Lymph % (Auto) [place] % (Auto) [place] # Seg Neutrophils % Seg Neuts % (Manual) Lymphocytes % (Manual) Monocytes % (Manual) Seg Neutrophils # Seg Neutrophils # Man Lymphocytes # (Manual) Monocytes # (Manual) Eosinophils # (Manual) Basophils # (Manual) PT INR APTT ABG pH ABG pO2 ABG HCO3 ABG O2 Saturation ABG Base Excess ABG Hemoglobin Oxyhemoglobin Sodium Potassium Chloride Carbon Dioxide BUN Creatinine Glucose POC Glucose 108 H 107 H 126 H Lactic Acid Calcium Ionized Calcium Phosphorus Magnesium Total Bilirubin AST ALT Alkaline Phosphatase Ammonia Total Creatine Kinase CK-MB (CK-2) CK-MB (CK-2) Rel Index Total Protein Albumin Urine WBC (Auto) Vancomycin Trough Salicylates Acetaminophen Plasma/Serum Alcohol Crossmatch 12/13/19 12/13/19 12/13/19 05:41 07:48 07:48 WBC 38.3 H RBC 2.37 L Hgb 6.3 L Hct 20.9 L MCH 27 L RDW 20.2 H Plt Count 546 H Lymph % (Auto) [place] % (Auto) [place] # Seg Neutrophils % Seg Neuts % (Manual) 93.0 H Lymphocytes % (Manual) 1.0 L Monocytes % (Manual) Seg Neutrophils # Seg Neutrophils # Man 35.6 H Lymphocytes # (Manual) 0.4 L Monocytes # (Manual) Eosinophils # (Manual) Basophils # (Manual) 0.4 H PT INR APTT ABG pH ABG pO2 ABG HCO3 ABG O2 Saturation ABG Base Excess ABG Hemoglobin Oxyhemoglobin Sodium 152 H Potassium 3.1 L D Chloride 111.9 H Carbon Dioxide 21 L BUN 53 H Creatinine 1.9 H Glucose 141 H POC Glucose 128 H Lactic Acid Calcium Ionized Calcium Phosphorus Magnesium Total Bilirubin AST ALT Alkaline Phosphatase 316 H Ammonia Total Creatine Kinase CK-MB (CK-2) CK-MB (CK-2) Rel Index Total Protein Albumin 2.4 L Urine WBC (Auto) Vancomycin Trough Salicylates Acetaminophen Plasma/Serum Alcohol Crossmatch 12/13/19 12/13/19 12/14/19 18:17 23:19 05:36 WBC RBC Hgb Hct MCH RDW Plt Count Lymph % (Auto) [place] % (Auto) [place] # Seg Neutrophils % Seg Neuts % (Manual) Lymphocytes % (Manual) Monocytes % (Manual) Seg Neutrophils # Seg Neutrophils # Man Lymphocytes # (Manual) Monocytes # (Manual) Eosinophils # (Manual) Basophils # (Manual) PT INR APTT ABG pH ABG pO2 ABG HCO3 ABG O2 Saturation ABG Base Excess ABG Hemoglobin Oxyhemoglobin Sodium Potassium Chloride Carbon Dioxide BUN Creatinine Glucose POC Glucose 141 H 158 H 182 H Lactic Acid Calcium Ionized Calcium Phosphorus Magnesium Total Bilirubin AST ALT Alkaline Phosphatase Ammonia Total Creatine Kinase CK-MB (CK-2) CK-MB (CK-2) Rel Index Total Protein Albumin Urine WBC (Auto) Vancomycin Trough Salicylates Acetaminophen Plasma/Serum Alcohol Crossmatch 12/14/19 12/14/19 12/14/19 08:48 08:48 10:31 WBC 33.3 H RBC 2.70 L Hgb 7.9 L 8.0 L Hct 25.3 L 24.0 L MCH RDW 19.2 H Plt Count 476 H Lymph % (Auto) [place] % (Auto) [place] # Seg Neutrophils % Seg Neuts % (Manual) Lymphocytes % (Manual) Monocytes % (Manual) Seg Neutrophils # Seg Neutrophils # Man Lymphocytes # (Manual) Monocytes # (Manual) Eosinophils # (Manual) Basophils # (Manual) PT INR APTT ABG pH ABG pO2 ABG HCO3 ABG O2 Saturation ABG Base Excess ABG Hemoglobin Oxyhemoglobin Sodium 153 H Potassium 2.5 L* Chloride 114.9 H Carbon Dioxide 20 L BUN 38 H Creatinine 1.4 H Glucose 177 H POC Glucose Lactic Acid Calcium Ionized Calcium Phosphorus Magnesium Total Bilirubin AST ALT Alkaline Phosphatase Ammonia Total Creatine Kinase CK-MB (CK-2) CK-MB (CK-2) Rel Index Total Protein Albumin Urine WBC (Auto) Vancomycin Trough Salicylates Acetaminophen Plasma/Serum Alcohol Crossmatch 12/14/19 12/14/19 12/14/19 12:57 16:15 17:50 WBC RBC Hgb Hct MCH RDW Plt Count Lymph % (Auto) [place] % (Auto) [place] # Seg Neutrophils % Seg Neuts % (Manual) Lymphocytes % (Manual) Monocytes % (Manual) Seg Neutrophils # Seg Neutrophils # Man Lymphocytes # (Manual) Monocytes # (Manual) Eosinophils # (Manual) Basophils # (Manual) PT INR APTT ABG pH ABG pO2 73.6 L ABG HCO3 ABG O2 Saturation ABG Base Excess ABG Hemoglobin 7.6 L Oxyhemoglobin 94.0 L Sodium Potassium Chloride Carbon Dioxide BUN Creatinine Glucose POC Glucose 174 H 150 H Lactic Acid Calcium Ionized Calcium Phosphorus Magnesium Total Bilirubin AST ALT Alkaline Phosphatase Ammonia Total Creatine Kinase CK-MB (CK-2) CK-MB (CK-2) Rel Index Total Protein Albumin Urine WBC (Auto) Vancomycin Trough Salicylates Acetaminophen Plasma/Serum Alcohol Crossmatch 12/15/19 12/15/19 12/15/19 00:28 05:27 07:23 WBC 30.0 H RBC 3.11 L Hgb 8.6 L Hct 27.7 L MCH RDW 20.0 H Plt Count 473 H Lymph % (Auto) [place] % (Auto) [place] # Seg Neutrophils % Seg Neuts % (Manual) Lymphocytes % (Manual) Monocytes % (Manual) Seg Neutrophils # Seg Neutrophils # Man Lymphocytes # (Manual) Monocytes # (Manual) Eosinophils # (Manual) Basophils # (Manual) PT INR APTT ABG pH ABG pO2 ABG HCO3 ABG O2 Saturation ABG Base Excess ABG Hemoglobin Oxyhemoglobin Sodium Potassium Chloride Carbon Dioxide BUN Creatinine Glucose POC Glucose 167 H 148 H Lactic Acid Calcium Ionized Calcium Phosphorus Magnesium Total Bilirubin AST ALT Alkaline Phosphatase Ammonia Total Creatine Kinase CK-MB (CK-2) CK-MB (CK-2) Rel Index Total Protein Albumin Urine WBC (Auto) Vancomycin Trough Salicylates Acetaminophen Plasma/Serum Alcohol Crossmatch 12/15/19 12/15/19 12/15/19 07:23 12:21 17:41 WBC RBC Hgb Hct MCH RDW Plt Count Lymph % (Auto) [place] % (Auto) [place] # Seg Neutrophils % Seg Neuts % (Manual) Lymphocytes % (Manual) Monocytes % (Manual) Seg Neutrophils # Seg Neutrophils # Man Lymphocytes # (Manual) Monocytes # (Manual) Eosinophils # (Manual) Basophils # (Manual) PT INR APTT ABG pH ABG pO2 ABG HCO3 ABG O2 Saturation ABG Base Excess ABG Hemoglobin Oxyhemoglobin Sodium 147 H Potassium 3.5 L D Chloride 111.2 H Carbon Dioxide 19 L BUN 29 H Creatinine Glucose 126 H POC Glucose 154 H 144 H Lactic Acid Calcium Ionized Calcium Phosphorus Magnesium Total Bilirubin AST ALT Alkaline Phosphatase Ammonia Total Creatine Kinase CK-MB (CK-2) CK-MB (CK-2) Rel Index Total Protein Albumin Urine WBC (Auto) Vancomycin Trough Salicylates Acetaminophen Plasma/Serum Alcohol Crossmatch 12/16/19 12/16/19 12/16/19 00:22 05:30 05:44 WBC 30.8 H RBC 2.58 L Hgb 7.1 L Hct 22.7 L MCH RDW 19.6 H Plt Count 451 H Lymph % (Auto) [place] % (Auto) [place] # Seg Neutrophils % Seg Neuts % (Manual) Lymphocytes % (Manual) Monocytes % (Manual) Seg Neutrophils # Seg Neutrophils # Man Lymphocytes # (Manual) Monocytes # (Manual) Eosinophils # (Manual) Basophils # (Manual) PT INR APTT ABG pH ABG pO2 ABG HCO3 ABG O2 Saturation ABG Base Excess ABG Hemoglobin Oxyhemoglobin Sodium Potassium Chloride Carbon Dioxide BUN Creatinine Glucose POC Glucose 139 H 126 H Lactic Acid Calcium Ionized Calcium Phosphorus Magnesium Total Bilirubin AST ALT Alkaline Phosphatase Ammonia Total Creatine Kinase CK-MB (CK-2) CK-MB (CK-2) Rel Index Total Protein Albumin Urine WBC (Auto) Vancomycin Trough Salicylates Acetaminophen Plasma/Serum Alcohol Crossmatch 12/16/19 12/16/19 12/16/19 05:44 11:48 17:37 WBC RBC Hgb Hct MCH RDW Plt Count Lymph % (Auto) [place] % (Auto) [place] # Seg Neutrophils % Seg Neuts % (Manual) Lymphocytes % (Manual) Monocytes % (Manual) Seg Neutrophils # Seg Neutrophils # Man Lymphocytes # (Manual) Monocytes # (Manual) Eosinophils # (Manual) Basophils # (Manual) PT INR APTT ABG pH ABG pO2 ABG HCO3 ABG O2 Saturation ABG Base Excess ABG Hemoglobin Oxyhemoglobin Sodium Potassium 3.4 L Chloride 109.2 H Carbon Dioxide 19 L BUN 27 H Creatinine Glucose 124 H POC Glucose 125 H 148 H Lactic Acid Calcium Ionized Calcium Phosphorus Magnesium Total Bilirubin AST ALT Alkaline Phosphatase Ammonia Total Creatine Kinase CK-MB (CK-2) CK-MB (CK-2) Rel Index Total Protein Albumin Urine WBC (Auto) Vancomycin Trough Salicylates Acetaminophen Plasma/Serum Alcohol Crossmatch 12/16/19 12/17/19 12/17/19 23:43 05:28 12:47 WBC RBC Hgb Hct MCH RDW Plt Count Lymph % (Auto) [place] % (Auto) [place] # Seg Neutrophils % Seg Neuts % (Manual) Lymphocytes % (Manual) Monocytes % (Manual) Seg Neutrophils # Seg Neutrophils # Man Lymphocytes # (Manual) Monocytes # (Manual) Eosinophils # (Manual) Basophils # (Manual) PT INR APTT ABG pH ABG pO2 ABG HCO3 ABG O2 Saturation ABG Base Excess ABG Hemoglobin Oxyhemoglobin Sodium Potassium Chloride Carbon Dioxide BUN Creatinine Glucose POC Glucose 142 H 140 H 125 H Lactic Acid Calcium Ionized Calcium Phosphorus Magnesium Total Bilirubin AST ALT Alkaline Phosphatase Ammonia Total Creatine Kinase CK-MB (CK-2) CK-MB (CK-2) Rel Index Total Protein Albumin Urine WBC (Auto) Vancomycin Trough Salicylates Acetaminophen Plasma/Serum Alcohol Crossmatch 12/17/19 12/17/19 12/17/19 17:05 18:00 Unknown WBC RBC Hgb Hct MCH RDW Plt Count Lymph % (Auto) [place] % (Auto) [place] # Seg Neutrophils % Seg Neuts % (Manual) Lymphocytes % (Manual) Monocytes % (Manual) Seg Neutrophils # Seg Neutrophils # Man Lymphocytes # (Manual) Monocytes # (Manual) Eosinophils # (Manual) Basophils # (Manual) PT INR APTT ABG pH ABG pO2 68.1 L ABG HCO3 ABG O2 Saturation 93.7 L ABG Base Excess ABG Hemoglobin 5.0 L Oxyhemoglobin 91.7 L Sodium Potassium Chloride Carbon Dioxide BUN Creatinine Glucose POC Glucose 140 H Lactic Acid Calcium Ionized Calcium Phosphorus Magnesium Total Bilirubin AST ALT Alkaline Phosphatase Ammonia Total Creatine Kinase CK-MB (CK-2) CK-MB (CK-2) Rel Index Total Protein Albumin Urine WBC (Auto) Vancomycin Trough Salicylates Acetaminophen Plasma/Serum Alcohol Crossmatch 12/18/19 12/18/19 12/18/19 00:16 04:53 04:53 WBC 28.6 H RBC 2.27 L Hgb 6.3 L Hct 19.5 L* MCH RDW 20.0 H Plt Count 497 H Lymph % (Auto) [place] % (Auto) [place] # Seg Neutrophils % Seg Neuts % (Manual) Lymphocytes % (Manual) Monocytes % (Manual) Seg Neutrophils # Seg Neutrophils # Man Lymphocytes # (Manual) Monocytes # (Manual) Eosinophils # (Manual) Basophils # (Manual) PT INR APTT ABG pH ABG pO2 ABG HCO3 ABG O2 Saturation ABG Base Excess ABG Hemoglobin Oxyhemoglobin Sodium Potassium Chloride 107.9 H Carbon Dioxide 20 L BUN 27 H Creatinine 0.6 L Glucose 116 H POC Glucose 123 H Lactic Acid Calcium Ionized Calcium Phosphorus Magnesium Total Bilirubin AST ALT Alkaline Phosphatase Ammonia Total Creatine Kinase CK-MB (CK-2) CK-MB (CK-2) Rel Index Total Protein Albumin Urine WBC (Auto) Vancomycin Trough Salicylates Acetaminophen Plasma/Serum Alcohol Crossmatch 12/18/19 12/18/19 12/18/19 06:38 11:22 12:08 WBC RBC Hgb Hct MCH RDW Plt Count Lymph % (Auto) [place] % (Auto) [place] # Seg Neutrophils % Seg Neuts % (Manual) Lymphocytes % (Manual) Monocytes % (Manual) Seg Neutrophils # Seg Neutrophils # Man Lymphocytes # (Manual) Monocytes # (Manual) Eosinophils # (Manual) Basophils # (Manual) PT INR APTT ABG pH ABG pO2 ABG HCO3 ABG O2 Saturation ABG Base Excess ABG Hemoglobin Oxyhemoglobin Sodium Potassium Chloride Carbon Dioxide BUN Creatinine Glucose POC Glucose 120 H 127 H Lactic Acid Calcium Ionized Calcium Phosphorus Magnesium Total Bilirubin AST ALT Alkaline Phosphatase Ammonia Total Creatine Kinase CK-MB (CK-2) CK-MB (CK-2) Rel Index Total Protein Albumin Urine WBC (Auto) Vancomycin Trough Salicylates Acetaminophen Plasma/Serum Alcohol Crossmatch See Detail 12/18/19 12/18/19 12/18/19 14:05 17:49 23:53 WBC RBC Hgb Hct MCH RDW Plt Count Lymph % (Auto) [place] % (Auto) [place] # Seg Neutrophils % Seg Neuts % (Manual) Lymphocytes % (Manual) Monocytes % (Manual) Seg Neutrophils # Seg Neutrophils # Man Lymphocytes # (Manual) Monocytes # (Manual) Eosinophils # (Manual) Basophils # (Manual) PT INR APTT ABG pH 7.267 L ABG pO2 69.8 L ABG HCO3 ABG O2 Saturation 88.4 L ABG Base Excess ABG Hemoglobin 7.1 L Oxyhemoglobin 86.4 L Sodium Potassium Chloride Carbon Dioxide BUN Creatinine Glucose POC Glucose 157 H 128 H Lactic Acid Calcium Ionized Calcium Phosphorus Magnesium Total Bilirubin AST ALT Alkaline Phosphatase Ammonia Total Creatine Kinase CK-MB (CK-2) CK-MB (CK-2) Rel Index Total Protein Albumin Urine WBC (Auto) Vancomycin Trough Salicylates Acetaminophen Plasma/Serum Alcohol Crossmatch 12/19/19 12/19/19 12/19/19 03:37 03:37 05:25 WBC 31.3 H RBC 2.60 L Hgb 7.6 L Hct 23.0 L MCH RDW 19.4 H Plt Count 530 H Lymph % (Auto) [place] % (Auto) [place] # Seg Neutrophils % Seg Neuts % (Manual) Lymphocytes % (Manual) Monocytes % (Manual) Seg Neutrophils # Seg Neutrophils # Man Lymphocytes # (Manual) Monocytes # (Manual) Eosinophils # (Manual) Basophils # (Manual) PT INR APTT ABG pH ABG pO2 ABG HCO3 ABG O2 Saturation ABG Base Excess ABG Hemoglobin Oxyhemoglobin Sodium Potassium Chloride Carbon Dioxide 18 L BUN 36 H Creatinine Glucose 111 H POC Glucose 123 H Lactic Acid Calcium Ionized Calcium Phosphorus Magnesium Total Bilirubin AST ALT Alkaline Phosphatase Ammonia Total Creatine Kinase CK-MB (CK-2) CK-MB (CK-2) Rel Index Total Protein Albumin Urine WBC (Auto) Vancomycin Trough Salicylates Acetaminophen Plasma/Serum Alcohol Crossmatch 12/19/19 12/19/19 12/20/19 12:59 18:33 00:00 WBC RBC Hgb Hct MCH RDW Plt Count Lymph % (Auto) [place] % (Auto) [place] # Seg Neutrophils % Seg Neuts % (Manual) Lymphocytes % (Manual) Monocytes % (Manual) Seg Neutrophils # Seg Neutrophils # Man Lymphocytes # (Manual) Monocytes # (Manual) Eosinophils # (Manual) Basophils # (Manual) PT INR APTT ABG pH ABG pO2 ABG HCO3 ABG O2 Saturation ABG Base Excess ABG Hemoglobin Oxyhemoglobin Sodium Potassium Chloride Carbon Dioxide BUN Creatinine Glucose POC Glucose 130 H 118 H 135 H Lactic Acid Calcium Ionized Calcium Phosphorus Magnesium Total Bilirubin AST ALT Alkaline Phosphatase Ammonia Total Creatine Kinase CK-MB (CK-2) CK-MB (CK-2) Rel Index Total Protein Albumin Urine WBC (Auto) Vancomycin Trough Salicylates Acetaminophen Plasma/Serum Alcohol Crossmatch 12/20/19 12/20/19 12/20/19 05:46 12:31 18:07 WBC RBC Hgb Hct MCH RDW Plt Count Lymph % (Auto) [place] % (Auto) [place] # Seg Neutrophils % Seg Neuts % (Manual) Lymphocytes % (Manual) Monocytes % (Manual) Seg Neutrophils # Seg Neutrophils # Man Lymphocytes # (Manual) Monocytes # (Manual) Eosinophils # (Manual) Basophils # (Manual) PT INR APTT ABG pH ABG pO2 ABG HCO3 ABG O2 Saturation ABG Base Excess ABG Hemoglobin Oxyhemoglobin Sodium Potassium Chloride Carbon Dioxide BUN Creatinine Glucose POC Glucose 131 H 128 H 134 H Lactic Acid Calcium Ionized Calcium Phosphorus Magnesium Total Bilirubin AST ALT Alkaline Phosphatase Ammonia Total Creatine Kinase CK-MB (CK-2) CK-MB (CK-2) Rel Index Total Protein Albumin Urine WBC (Auto) Vancomycin Trough Salicylates Acetaminophen Plasma/Serum Alcohol Crossmatch 12/21/19 12/21/19 12/21/19 03:28 03:28 07:21 WBC 29.4 H RBC 2.30 L Hgb 6.8 L Hct 20.2 L MCH RDW 20.2 H Plt Count 746 H Lymph % (Auto) [place] % (Auto) [place] # Seg Neutrophils % Seg Neuts % (Manual) 85.0 H Lymphocytes % (Manual) 8.0 L Monocytes % (Manual) Seg Neutrophils # Seg Neutrophils # Man 25.0 H Lymphocytes # (Manual) Monocytes # (Manual) 1.5 H Eosinophils # (Manual) 0.6 H Basophils # (Manual) PT INR APTT ABG pH ABG pO2 ABG HCO3 ABG O2 Saturation ABG Base Excess ABG Hemoglobin Oxyhemoglobin Sodium Potassium Chloride Carbon Dioxide 17 L BUN 57 H Creatinine 1.4 H D Glucose POC Glucose 124 H Lactic Acid Calcium Ionized Calcium Phosphorus Magnesium Total Bilirubin AST ALT Alkaline Phosphatase Ammonia Total Creatine Kinase CK-MB (CK-2) CK-MB (CK-2) Rel Index Total Protein Albumin Urine WBC (Auto) Vancomycin Trough Salicylates Acetaminophen Plasma/Serum Alcohol Crossmatch 12/21/19 12/21/19 12/21/19 08:56 12:06 14:53 WBC RBC Hgb 7.2 L Hct 22.9 L MCH RDW Plt Count Lymph % (Auto) [place] % (Auto) [place] # Seg Neutrophils % Seg Neuts % (Manual) Lymphocytes % (Manual) Monocytes % (Manual) Seg Neutrophils # Seg Neutrophils # Man Lymphocytes # (Manual) Monocytes # (Manual) Eosinophils # (Manual) Basophils # (Manual) PT INR APTT ABG pH ABG pO2 ABG HCO3 ABG O2 Saturation ABG Base Excess ABG Hemoglobin Oxyhemoglobin Sodium Potassium Chloride Carbon Dioxide BUN Creatinine Glucose POC Glucose 116 H Lactic Acid Calcium Ionized Calcium Phosphorus Magnesium Total Bilirubin AST ALT Alkaline Phosphatase Ammonia Total Creatine Kinase CK-MB (CK-2) CK-MB (CK-2) Rel Index Total Protein Albumin Urine WBC (Auto) Vancomycin Trough 33.8 H Salicylates Acetaminophen Plasma/Serum Alcohol Crossmatch 12/21/19 12/21/19 12/21/19 14:54 17:27 23:49 WBC RBC Hgb Hct MCH RDW Plt Count Lymph % (Auto) [place] % (Auto) [place] # Seg Neutrophils % Seg Neuts % (Manual) Lymphocytes % (Manual) Monocytes % (Manual) Seg Neutrophils # Seg Neutrophils # Man Lymphocytes # (Manual) Monocytes # (Manual) Eosinophils # (Manual) Basophils # (Manual) PT INR APTT ABG pH ABG pO2 ABG HCO3 ABG O2 Saturation ABG Base Excess ABG Hemoglobin Oxyhemoglobin Sodium Potassium Chloride Carbon Dioxide BUN Creatinine Glucose POC Glucose 145 H 127 H Lactic Acid Calcium Ionized Calcium Phosphorus Magnesium Total Bilirubin AST ALT Alkaline Phosphatase Ammonia Total Creatine Kinase CK-MB (CK-2) CK-MB (CK-2) Rel Index Total Protein Albumin Urine WBC (Auto) Vancomycin Trough Salicylates Acetaminophen Plasma/Serum Alcohol Crossmatch See Detail 12/22/19 12/22/19 12/22/19 04:43 05:56 08:40 WBC RBC Hgb Hct MCH RDW Plt Count Lymph % (Auto) [place] % (Auto) [place] # Seg Neutrophils % Seg Neuts % (Manual) Lymphocytes % (Manual) Monocytes % (Manual) Seg Neutrophils # Seg Neutrophils # Man Lymphocytes # (Manual) Monocytes # (Manual) Eosinophils # (Manual) Basophils # (Manual) PT INR APTT ABG pH ABG pO2 75.6 L ABG HCO3 ABG O2 Saturation ABG Base Excess -2.6 L ABG Hemoglobin 6.8 L Oxyhemoglobin 94.6 L Sodium Potassium Chloride Carbon Dioxide 17 L BUN 60 H Creatinine 1.4 H Glucose 126 H POC Glucose 153 H Lactic Acid Calcium Ionized Calcium Phosphorus Magnesium Total Bilirubin AST ALT Alkaline Phosphatase Ammonia Total Creatine Kinase CK-MB (CK-2) CK-MB (CK-2) Rel Index Total Protein Albumin Urine WBC (Auto) Vancomycin Trough Salicylates Acetaminophen Plasma/Serum Alcohol Crossmatch 12/22/19 12/22/19 12/23/19 12:07 17:49 04:30 WBC 22.4 H RBC 2.68 L Hgb 7.6 L Hct 22.9 L MCH RDW 19.9 H Plt Count 998 H Lymph % (Auto) [place] % (Auto) [place] # Seg Neutrophils % Seg Neuts % (Manual) 88.0 H Lymphocytes % (Manual) 2.0 L Monocytes % (Manual) 9.0 H Seg Neutrophils # Seg Neutrophils # Man 19.7 H Lymphocytes # (Manual) 0.4 L Monocytes # (Manual) 2.0 H Eosinophils # (Manual) Basophils # (Manual) PT INR APTT ABG pH ABG pO2 ABG HCO3 ABG O2 Saturation ABG Base Excess ABG Hemoglobin Oxyhemoglobin Sodium Potassium Chloride Carbon Dioxide BUN Creatinine Glucose POC Glucose 140 H 116 H Lactic Acid Calcium Ionized Calcium Phosphorus Magnesium Total Bilirubin AST ALT Alkaline Phosphatase Ammonia Total Creatine Kinase CK-MB (CK-2) CK-MB (CK-2) Rel Index Total Protein Albumin Urine WBC (Auto) Vancomycin Trough Salicylates Acetaminophen Plasma/Serum Alcohol Crossmatch 12/23/19 12/23/19 12/23/19 04:30 12:00 18:06 WBC RBC Hgb Hct MCH RDW Plt Count Lymph % (Auto) [place] % (Auto) [place] # Seg Neutrophils % Seg Neuts % (Manual) Lymphocytes % (Manual) Monocytes % (Manual) Seg Neutrophils # Seg Neutrophils # Man Lymphocytes # (Manual) Monocytes # (Manual) Eosinophils # (Manual) Basophils # (Manual) PT INR APTT ABG pH ABG pO2 ABG HCO3 ABG O2 Saturation ABG Base Excess ABG Hemoglobin Oxyhemoglobin Sodium Potassium 5.2 H Chloride Carbon Dioxide 21 L BUN 69 H Creatinine 1.5 H Glucose 117 H POC Glucose 128 H 138 H Lactic Acid Calcium Ionized Calcium Phosphorus Magnesium Total Bilirubin AST ALT Alkaline Phosphatase Ammonia Total Creatine Kinase CK-MB (CK-2) CK-MB (CK-2) Rel Index Total Protein Albumin Urine WBC (Auto) Vancomycin Trough Salicylates Acetaminophen Plasma/Serum Alcohol Crossmatch 12/23/19 12/24/19 12/24/19 23:46 04:31 05:08 WBC RBC Hgb Hct MCH RDW Plt Count Lymph % (Auto) [place] % (Auto) [place] # Seg Neutrophils % Seg Neuts % (Manual) Lymphocytes % (Manual) Monocytes % (Manual) Seg Neutrophils # Seg Neutrophils # Man Lymphocytes # (Manual) Monocytes # (Manual) Eosinophils # (Manual) Basophils # (Manual) PT INR APTT ABG pH ABG pO2 ABG HCO3 ABG O2 Saturation ABG Base Excess ABG Hemoglobin Oxyhemoglobin Sodium Potassium 5.3 H Chloride 107.6 H Carbon Dioxide 20 L BUN 72 H Creatinine 1.6 H Glucose 120 H POC Glucose 120 H 140 H Lactic Acid Calcium Ionized Calcium Phosphorus Magnesium Total Bilirubin AST ALT Alkaline Phosphatase Ammonia Total Creatine Kinase CK-MB (CK-2) CK-MB (CK-2) Rel Index Total Protein Albumin Urine WBC (Auto) Vancomycin Trough Salicylates Acetaminophen Plasma/Serum Alcohol Crossmatch 12/24/19 12/24/19 12/25/19 11:58 17:49 03:47 WBC 36.2 H RBC 2.92 L Hgb 8.4 L Hct 26.1 L MCH RDW 20.2 H Plt Count 942 H Lymph % (Auto) [place] % (Auto) [place] # Seg Neutrophils % Seg Neuts % (Manual) 97.5 H Lymphocytes % (Manual) 1.0 L Monocytes % (Manual) Seg Neutrophils # Seg Neutrophils # Man 35.3 H Lymphocytes # (Manual) 0.4 L Monocytes # (Manual) Eosinophils # (Manual) Basophils # (Manual) PT INR APTT ABG pH ABG pO2 ABG HCO3 ABG O2 Saturation ABG Base Excess ABG Hemoglobin Oxyhemoglobin Sodium Potassium Chloride Carbon Dioxide BUN Creatinine Glucose POC Glucose 146 H 131 H Lactic Acid Calcium Ionized Calcium Phosphorus Magnesium Total Bilirubin AST ALT Alkaline Phosphatase Ammonia Total Creatine Kinase CK-MB (CK-2) CK-MB (CK-2) Rel Index Total Protein Albumin Urine WBC (Auto) Vancomycin Trough Salicylates Acetaminophen Plasma/Serum Alcohol Crossmatch 12/25/19 12/25/19 12/25/19 03:47 05:30 12:23 WBC RBC Hgb Hct MCH RDW Plt Count Lymph % (Auto) [place] % (Auto) [place] # Seg Neutrophils % Seg Neuts % (Manual) Lymphocytes % (Manual) Monocytes % (Manual) Seg Neutrophils # Seg Neutrophils # Man Lymphocytes # (Manual) Monocytes # (Manual) Eosinophils # (Manual) Basophils # (Manual) PT INR APTT ABG pH ABG pO2 ABG HCO3 ABG O2 Saturation ABG Base Excess ABG Hemoglobin Oxyhemoglobin Sodium Potassium Chloride Carbon Dioxide 15 L BUN 70 H Creatinine 1.7 H Glucose 153 H POC Glucose 169 H 135 H Lactic Acid Calcium Ionized Calcium Phosphorus Magnesium Total Bilirubin AST ALT Alkaline Phosphatase Ammonia Total Creatine Kinase CK-MB (CK-2) CK-MB (CK-2) Rel Index Total Protein Albumin Urine WBC (Auto) Vancomycin Trough Salicylates Acetaminophen Plasma/Serum Alcohol Crossmatch 12/25/19 12/25/19 17:37 23:29 WBC RBC Hgb Hct MCH RDW Plt Count Lymph % (Auto) [place] % (Auto) [place] # Seg Neutrophils % Seg Neuts % (Manual) Lymphocytes % (Manual) Monocytes % (Manual) Seg Neutrophils # Seg Neutrophils # Man Lymphocytes # (Manual) Monocytes # (Manual) Eosinophils # (Manual) Basophils # (Manual) PT INR APTT ABG pH ABG pO2 ABG HCO3 ABG O2 Saturation ABG Base Excess ABG Hemoglobin Oxyhemoglobin Sodium Potassium Chloride Carbon Dioxide BUN Creatinine Glucose POC Glucose 120 H 140 H Lactic Acid Calcium Ionized Calcium Phosphorus Magnesium Total Bilirubin AST ALT Alkaline Phosphatase Ammonia Total Creatine Kinase CK-MB (CK-2) CK-MB (CK-2) Rel Index Total Protein Albumin Urine WBC (Auto) Vancomycin Trough Salicylates Acetaminophen Plasma/Serum Alcohol Crossmatch Allied health notes reviewed: RT
--- NOTE | 2019-12-26 13:26 | Progress Note ---
Assessment and Plan Assessment and plan: Patient is a 54-year-old woman with a history of Hypertension, Depression, tobacco and alcohol dependency who presented to [facility] ED on 11/22/2019 due to cardiac arrest outside of the hospital. EMS found pt in PEA. Upon their arrival patient in sinus tachycardia. EMS were unable to intubate patient with a ET tube because she was clenching down therefore Joe airway placed per records. Patient received Narcan and Epinephrine. Patient's rhythm changed to PEA to sinus bradycardia, to PEA, then to sinus tach after receiving Narcan and Epinephrine. Per the ED physician who evaluated pt, Patient presented with a pulse, intermittent respirations, and bagging support via Joe airway with O2 sat of 100%. Accu-Chek of 71 obtained by EMS Status post cardiac arrest, etiology unknown Acute respiratory failure with hypoxia s/p Intubation via ETT >96 hours: Trach and PEG planned, CCM following Acute cystitis with Sepsis, not sure POA, treated with antibiotics and this completed a few days 11/29/2019 ago no growth was noted on cultures no fever. We will continue off antibiotics at this time. Seizure disorder: treat with Keppra Presumed anoxic brain injury: Neurology is following Alcohol abuse: CIWA protocol Acute metabolic encephalopathy/toxic encephalopathy due to the above BHAVANA secondary to vasomotor nephropathy: treat with IVF Hypertension: watch bp closely, prn IV antihypertensives prn Distended abdomen: treat with NGT to suction Transaminitis with Ischemic hepatitis Metabolic acidosis/alcoholic acidosis/lactic acidosis H. Influenzae, tracheobronchitis Hypernatremia: free water and monitor bmp closely Full code DVT ppx: held sq heparin due to drop in h/h and anemia 12/04-: Patient failed CPAP trial became apneic according to documentation. No clinical change, continue current management, monitor H/H Awaiting labs. No new changes at this time opens eyes. Surgeon discussed trach and PEG with family but they want to get more information about hospice which they have been directed to the caseworker intake. Patient overnight had a episode of vomiting. Zofran started. 12/11/19: I took over patient care on day 18, Patient remains intubated, daily weaning trails. Trach and PEG planned once family consents. Mother is Anh Jesus @ [phone]. CCT 31 minutes 12/12/19: transfuse PRBC, s/p trach and PEG 3/26/20: Trach and PEG done, New fevers today, suspected Aspiration Pneumonitis vs Atelectasis; get blood cultures and empirically treat with ABX, levaquin/flagyl IV combo. Renewed restraints. ARF improved drastically as Cr went from 2.8 to 1.9 overnigh. however, WBC skyrocketed to 38.3k from 18k. Will repeat bmp and cbc, CCT 33 minutes 12/14/19: WBC improved slightly, potassium 2.5, renal function continue to improve. replete potassium, still febrile, re-consulted ID; give free water flushes via PEG. Dispo: aggressive wean and once off vent will have to discharge home, no insurance. 12/15/19: Still on MV Peep 6 fiO2 50%, ordered AM labs, renewed restraints. Right arm swollen, get Venous doppler-not done due to COVID-19 12/16/19: still on MV, PEEP 6 FiO2 30%, replete potassium, renewed restraints, give Tylenol of fevers (first real temp >100.4 since 12/14/19), green-culture, get CXR, UA. 12/17/19: Day 24 on MV, PEEP 6 FiO2 30%, trying to wean, held sq heparin due to drop in h/h and anemia, renewed restraints, fever appears to be due to worsening pneumonia, UA negative, pCXR Impression: Slight interval worsening of a consolidative opacity in the left mid to lower lung, worrisome for pneumonia in the appropriate clinical setting. Adjust Vancomycin dose continue cefepime with ID following. Swollen right arm with Venous doppler of right arm r/o DVT ordered but not done due to COVID-19, 12/25/19: Resumed care, Hospice discussed yesterday, will follow up. WBC increased to 36.4k, hgb steady at 8.4, +FOBT, Cr creeping up at 1.7 12/26/19: I called Jeremy Anh Jesus ([phone]) and she asked if I could call her back. Patient remains in PVS (persistent vegetative state) with poor prognosis, doesn't need restraints, still needing Mechanical Ventilation/Life support. Possible withdraw today, I called Dr. Naik History Interval history: Patient was seen and examined. Follow-up on current diagnosis of Respiratory failure. Overnight uneventful as no events directly reported to me. Imaging, nursing note, chart, labs and old chart reviewed. PUI?: No Hospitalist Physical - Physical exam Narrative exam: Gen: critical ill, intubated, unresponsive not on sedation HEENT: ETT in place Neck: supple, no adenopathy, no thyromegaly, no JVD CVS/Heart: Regular Tachycardia, normal S1S2, pulses present bilaterally Chest/Lungs: CTA B, Symmetrical chest expansion, good air entry bilaterally GI/Abdomen: soft, NTND, good bowel sounds, no guarding or rebound MSK: right arm swollen Neuro: doesnt follow commands Psych: not responding - Constitutional Vitals: Temp Pulse Resp BP Pulse Ox 98.2 F 108 H 17 124/78 98 12/26/19 12:00 12/26/19 12:45 12/26/19 12:45 12/26/19 12:45 12/26/19 12:45 General appearance: Present: no acute distress, other (on vent with sedation) Results - Labs CBC & Chem 7: 12/25/19 03:47 12/25/19 03:47 Labs: Laboratory Last Values WBC 36.2 K/mm3 (4.5-11.0) H 12/25/19 03:47 RBC 2.92 M/mm3 (3.65-5.03) L 12/25/19 03:47 Hgb 8.4 gm/dl (10.1-14.3) L 12/25/19 03:47 Hct 26.1 % (30.3-42.9) L 12/25/19 03:47 MCV 89 fl (79-97) 12/25/19 03:47 MCH 29 pg (28-32) 12/25/19 03:47 MCHC 32 % (30-34) 12/25/19 03:47 RDW 20.2 % (13.2-15.2) H 12/25/19 03:47 Plt Count 942 K/mm3 (140-440) H 12/25/19 03:47 Lymph % (Auto) 11.3 % (13.4-35.0) L 12/04/19 07:45 Real % (Auto) 15.2 % (0.0-7.3) H 12/04/19 07:45 Eos % (Auto) 0.5 % (0.0-4.3) 12/04/19 07:45 Baso % (Auto) 0.6 % (0.0-1.8) 12/04/19 07:45 Lymph # 1.8 K/mm3 (1.2-5.4) 12/04/19 07:45 Real # 2.4 K/mm3 (0.0-0.8) H 12/04/19 07:45 Eos # 0.1 K/mm3 (0.0-0.4) 12/04/19 07:45 Baso # 0.1 K/mm3 (0.0-0.1) 12/04/19 07:45 Add Manual Diff Complete 12/25/19 03:47 Total Counted 200 12/25/19 03:47 Seg Neutrophils % Shale Planer Operator Helper 12/25/19 03:47 Seg Neuts % (Manual) 97.5 % (40.0-70.0) H 12/25/19 03:47 Band Neutrophils % 0 % 12/25/19 03:47 Lymphocytes % (Manual) 1.0 % (13.4-35.0) L 12/25/19 03:47 Reactive Lymphs % (Man) 0 % 12/25/19 03:47 Monocytes % (Manual) 1.5 % (0.0-7.3) 12/25/19 03:47 Eosinophils % (Manual) 0 % (0.0-4.3) 12/25/19 03:47 Basophils % (Manual) 0 % (0.0-1.8) 12/25/19 03:47 Metamyelocytes % 0 % 12/25/19 03:47 Myelocytes % 0 % 12/25/19 03:47 Promyelocytes % 0 % 12/25/19 03:47 Blast Cells % 0 % 12/25/19 03:47 Nucleated RBC % Not Reportable 12/25/19 03:47 Seg Neutrophils # 11.5 K/mm3 (1.8-7.7) H 12/04/19 07:45 Seg Neutrophils # Man 35.3 K/mm3 (1.8-7.7) H 12/25/19 03:47 Band Neutrophils # 0.0 K/mm3 12/25/19 03:47 Lymphocytes # (Manual) 0.4 K/mm3 (1.2-5.4) L 12/25/19 03:47 Abs React Lymphs (Man) 0.0 K/mm3 12/25/19 03:47 Monocytes # (Manual) 0.5 K/mm3 (0.0-0.8) 12/25/19 03:47 Eosinophils # (Manual) 0.0 K/mm3 (0.0-0.4) 12/25/19 03:47 Basophils # (Manual) 0.0 K/mm3 (0.0-0.1) 12/25/19 03:47 Metamyelocytes # 0.0 K/mm3 12/25/19 03:47 Myelocytes # 0.0 K/mm3 12/25/19 03:47 Promyelocytes # 0.0 K/mm3 12/25/19 03:47 Blast Cells # 0.0 K/mm3 12/25/19 03:47 Pathologist Review 12/13/19 07:48 WBC Morphology Not Reportable 12/25/19 03:47 Hypersegmented Neuts Not Reportable 12/25/19 03:47 Hyposegmented Neuts Not Reportable 12/25/19 03:47 Hypogranular Neuts Not Reportable 12/25/19 03:47 Smudge Cells Not Reportable 12/25/19 03:47 Toxic Granulation Not Reportable 12/25/19 03:47 Toxic Vacuolation Not Reportable 12/25/19 03:47 Dohle Bodies Not Reportable 12/25/19 03:47 Pelger-Huet Anomaly Not Reportable 12/25/19 03:47 Dominique Rods Not Reportable 12/25/19 03:47 Platelet Estimate Consistent w auto 12/25/19 03:47 Clumped Platelets Not Reportable 12/25/19 03:47 Plt Clumps, EDTA Not Reportable 12/25/19 03:47 Large Platelets Not Reportable 12/25/19 03:47 Giant Platelets Not Reportable 12/25/19 03:47 Platelet Satelliting Not Reportable 12/25/19 03:47 Plt Morphology Comment Not Reportable 12/25/19 03:47 RBC Morphology Not Reportable 12/25/19 03:47 Dimorphic RBCs Not Reportable 12/25/19 03:47 Polychromasia Not Reportable 12/25/19 03:47 Hypochromasia Not Reportable 12/25/19 03:47 Poikilocytosis Not Reportable 12/25/19 03:47 Anisocytosis 1+ 12/25/19 03:47 Microcytosis Not Reportable 12/25/19 03:47 Macrocytosis Not Reportable 12/25/19 03:47 Spherocytes Not Reportable 12/25/19 03:47 Pappenheimer Bodies Not Reportable 12/25/19 03:47 Sickle Cells Not Reportable 12/25/19 03:47 Target Cells Not Reportable 12/25/19 03:47 Tear Drop Cells Not Reportable 12/25/19 03:47 Ovalocytes Not Reportable 12/25/19 03:47 Helmet Cells Not Reportable 12/25/19 03:47 Frias-Corazon Bodies Not Reportable 12/25/19 03:47 [place] Rings Not Reportable 12/25/19 03:47 Jamshid Cells Not Reportable 12/25/19 03:47 Bite Cells Not Reportable 12/25/19 03:47 Crenated Cell Not Reportable 12/25/19 03:47 Elliptocytes Not Reportable 12/25/19 03:47 Acanthocytes (Spur) Not Reportable 12/25/19 03:47 Rouleaux Not Reportable 12/25/19 03:47 Hemoglobin C Crystals Not Reportable 12/25/19 03:47 Schistocytes Not Reportable 12/25/19 03:47 Malaria parasites Not Reportable 12/25/19 03:47 Gregg Bodies Not Reportable 12/25/19 03:47 Hem Pathologist Commnt No 12/25/19 03:47 PT 17.0 Sec. (12.2-14.9) H 11/23/19 03:47 INR 1.36 (0.87-1.13) H 11/23/19 03:47 APTT 128.2 Sec. (24.2-36.6) H* 11/23/19 03:47 Heparin Anti-Xa Level 0.31 U.I./ml (0.3-0.7) 11/23/19 09:03 ABG pH 7.389 pH Units (7.350-7.450) 12/22/19 08:40 ABG pCO2 37.5 mm Hg 12/22/19 08:40 ABG pO2 75.6 mm Hg (80.0-90.0) L 12/22/19 08:40 ABG HCO3 22.1 mmol/L (20.0-26.0) 12/22/19 08:40 ABG O2 Saturation 96.7 % (95.0-99.0) 12/22/19 08:40 ABG O2 Content 9.1 (0.0-44) 12/22/19 08:40 ABG Base Excess -2.6 mmol/L (-2.0-3.0) L 12/22/19 08:40 ABG Hemoglobin 6.8 gm/dl (12.0-16.0) L 12/22/19 08:40 ABG Carboxyhemoglobin 1.8 % (0.0-5.0) 12/22/19 08:40 ABG Methemoglobin 0.3 % (0.0-1.5) 12/22/19 08:40 Oxyhemoglobin 94.6 % (95.0-99.0) L 12/22/19 08:40 FiO2 30 % 12/22/19 08:40 Sodium 144 mmol/L (137-145) 12/25/19 03:47 Potassium 4.0 mmol/L (3.6-5.0) D 12/25/19 03:47 Chloride 106.0 mmol/L (98-107) 12/25/19 03:47 Carbon Dioxide 15 mmol/L (22-30) L 12/25/19 03:47 Anion Gap 27 mmol/L 12/25/19 03:47 BUN 70 mg/dL (7-17) H 12/25/19 03:47 Creatinine 1.7 mg/dL (0.7-1.2) H 12/25/19 03:47 Estimated GFR 38 ml/min 12/25/19 03:47 BUN/Creatinine Ratio 41 % 12/25/19 03:47 Glucose 153 mg/dL (65-100) H 12/25/19 03:47 POC Glucose 110 (70-105) H 12/26/19 11:46 Lactic Acid 1.80 mmol/L (0.7-2.0) 11/25/19 05:05 Calcium 9.7 mg/dL (8.4-10.2) 12/25/19 03:47 Ionized Calcium 4.5 mg/dL (4.8-5.6) L 11/23/19 06:32 Phosphorus 4.20 mg/dL (2.5-4.5) D 11/28/19 08:59 Magnesium 2.30 mg/dL (1.7-2.3) 11/29/19 13:41 Total Bilirubin 0.40 mg/dL (0.1-1.2) 12/13/19 07:48 AST 27 units/L (5-40) 12/13/19 07:48 ALT 26 units/L (7-56) 12/13/19 07:48 Alkaline Phosphatase 316 units/L (35-129) H 12/13/19 07:48 Ammonia 42.0 umol/L (25-60) 11/29/19 13:41 Total Creatine Kinase 139 units/L (30-135) H 11/22/19 23:27 CK-MB (CK-2) 8.3 ng/mL (0.0-4.0) H 11/22/19 23:27 CK-MB (CK-2) Rel Index 5.9 (0-4) H 11/22/19 23:27 Troponin T < 0.010 ng/mL (0.00-0.029) 11/22/19 23:27 Total Protein 6.8 g/dL (6.3-8.2) 12/13/19 07:48 Albumin 2.4 g/dL (3.9-5) L 12/13/19 07:48 Albumin/Globulin Ratio 0.5 % 12/13/19 07:48 Lipase 18 units/L (13-60) 11/23/19 00:34 Procalcitonin 1.09 ng/mL (<0.15) 11/23/19 04:53 Urine Color Yellow (Yellow) 12/16/19 Unknown Urine Turbidity Slightly-cloudy (Clear) 12/16/19 Unknown Urine pH 5.0 (5.0-7.0) 12/16/19 Unknown Ur Specific [place] 1.018 (1.003-1.030) 12/16/19 Unknown Urine Protein 30 mg/dl mg/dL (Negative) 12/16/19 Unknown Urine Glucose (UA) Neg mg/dL (Negative) 12/16/19 Unknown Urine Ketones Neg mg/dL (Negative) 12/16/19 Unknown Urine Blood Sm (Negative) 12/16/19 Unknown Urine Nitrite Neg (Negative) 12/16/19 Unknown Urine Bilirubin Neg (Negative) 12/16/19 Unknown Urine Urobilinogen < 2.0 mg/dL (<2.0) 12/16/19 Unknown Ur Leukocyte Esterase Neg (Negative) 12/16/19 Unknown Urine WBC (Auto) 6.0 /HPF (0.0-6.0) 12/16/19 Unknown Urine RBC (Auto) 9.0 /HPF (0.0-6.0) 12/16/19 Unknown U Epithel Cells (Auto) < 1.0 /HPF (0-13.0) 12/16/19 Unknown Urine Bacteria (Auto) 2+ /HPF (Negative) 11/22/19 23:17 Hyaline Casts 3 /LPF 12/16/19 Unknown Granular Casts 3 /LPF 12/16/19 Unknown Urine Mucus Few /HPF 12/16/19 Unknown Vancomycin Trough 33.8 ug/mL (5.0-20.0) H 12/21/19 08:56 Random Vancomycin 16.2 ug/mL (0-40.0) 12/24/19 04:31 Salicylates < 0.3 mg/dL (2.8-20.0) L 11/22/19 23:27 Urine Opiates Screen Presumptive negative 11/22/19 23:17 Urine Methadone Screen Presumptive negative 11/22/19 23:17 Acetaminophen < 5.0 ug/mL (10.0-30.0) L 11/22/19 23:27 Ur Barbiturates Screen Presumptive negative 11/22/19 23:17 Ur Phencyclidine Scrn Presumptive negative 11/22/19 23:17 Ur Amphetamines Screen Presumptive negative 11/22/19 23:17 U Benzodiazepines Scrn Presumptive negative 11/22/19 23:17 Urine Cocaine Screen Presumptive negative 11/22/19 23:17 U Marijuana (THC) Screen Presumptive negative 11/22/19 23:17 Drugs of Abuse Note Disclamer 11/22/19 23:17 Plasma/Serum Alcohol 0.08 % (0-0.07) H 11/22/19 23:27 Hepatitis A IgM Ab Non-reactive (NonReactive) 11/23/19 01:19 Hep Bs Antigen Non-reactive (Negative) 11/23/19 01:19 Hep B Core IgM Ab Non-reactive (NonReactive) 11/23/19 01:19 Hepatitis C Antibody Non-reactive (NonReactive) 11/23/19 01:19 Blood Type O POSITIVE 12/21/19 14:54 Antibody Screen Negative 12/21/19 14:54 Crossmatch See Detail 12/21/19 14:54 - Diagnostic Impressions Diagnostic Impressions: Echocardiogram 11/23/19 03:58 Transthoracic Echocardiogram Indication: Cardiac arrest BP: 131/89 HR: 115 Conclusions *The study quality is technically difficult. *Global left ventricular wall motion and contractility are within normal limits. *The estimated ejection fraction is 55-60%. *Abnormal left ventricular diastolic filling is observed, consistent with impaired relaxation. *There is no pericardial effusion. Findings Procedure Info: The study quality is technically difficult. The study was technically limited due to the patient's inability to lay in the left lateral decubitus position. Left Ventricle: The left ventricular chamber size is normal. There is no left ventricular hypertrophy. Global left ventricular wall motion and contractility are within normal limits. Global left ventricular systolic function is normal. The estimated ejection fraction is 55-60%. Abnormal left ventricular diastolic filling is observed, consistent with impaired relaxation. Left Atrium: The left atrial chamber size is normal. Aortic Valve: The aortic valve leaflets are mildly thickened. Mitral Valve: The mitral valve leaflets are mildly thickened. There is no evidence of mitral regurgitation. Tricuspid Valve: The tricuspid valve leaflets are normal. There is trace tricuspid regurgitation. The right ventricular systolic pressure is calculated at 33 mmHg. Pulmonic Valve: The pulmonic valve appears normal. Pericardium: The pericardium appears normal. There is no pericardial effusion. Aorta: The aorta appears normal. Venous: The inferior vena cava appears normal in size. Measurements Chambers 2D Name Value Normal Range IVSd (2D) 0.94 cm (0.6 - 1.1) LVPWd (2D) 0.81 cm (0.6 - 1.1) LVIDd (2D) 3.6 cm (3.7 - 5.6) LVIDs (2D) 2.27 cm (2 - 3.8) LV FS (2D) 36.93 % - EF Teichholz (2D) 67.76 % - Ao root diameter (2D) 3.03 cm (2 - 3.7) Volumes/Mass Name Value Normal Range LA ESV SP 4CH (A/L) 16.89 ml - LA ESV SP 4CH (MOD) 15.52 ml - Diastolic/Systolic Function Name Value Normal Range MV E-wave Vmax 0.55 m/sec - MV deceleration time 200.89 msec - MV A-wave Vmax 0.68 m/sec - MV E:A ratio 0.82 ratio - Aortic Valve Name Value Normal Range AV Vmax 1.1 m/sec - AV VTI 15.9 cm - AV peak gradient 4.86 mmHg - AV mean gradient 2.59 mmHg - LVOT diameter 2 cm - LVOT Vmax 1.03 m/sec - LVOT VTI 15.87 cm - LVOT peak gradient 4.24 mmHg - LVOT mean gradient 2.41 mmHg - SV LVOT 49.77 ml - JOSÉ MIGUEL (continuity Vmax) 2.93 cm2 - JOSÉ MIGUEL (continuity VTI) 3.13 cm2 - Tricuspid Valve Name Value Normal Range TR Vmax 2.74 m/sec - TR peak gradient 303 mmHg - RAP 3 mmHg - RVSP 33 mmHg - IVC diameter 1.77 cm (1.2 - 2.3) Pulmonic Valve/Qp:Qs Name Value Normal Range PV Vmax 0.77 m/sec - PV peak gradient 2.4 mmHg - PV acceleration time 114.18 msec - Echocardiogram Limited Views 12/17/19 14:53 Transthoracic Echocardiogram Indication: R/O Vegetations BP: 144/83 HR: 133 Conclusions *Global left ventricular systolic function is mildly decreased. *The estimated ejection fraction is 45-50%. *A trivial pericardial effusion is visualized. Findings Left Ventricle: The left ventricular chamber size is normal. Global left ventricular systolic function is mildly decreased. The estimated ejection fraction is 45-50%. Left Atrium: The left atrial chamber size is normal. Right Ventricle: The right ventricular cavity size is normal. Right Atrium: The right atrial cavity size is normal. Aortic Valve: The aortic valve is not well visualized. There is no evidence of aortic regurgitation. Mitral Valve: The mitral valve leaflets are mildly thickened. There is trace of mitral regurgitation. Tricuspid Valve: The tricuspid valve leaflets are mildly thickened. There is trace tricuspid regurgitation. The right ventricular systolic pressure is calculated at 29 mmHg. Pulmonic Valve: The pulmonic valve is not well visualized. There is no evidence of pulmonic regurgitation. Pericardium: A trivial pericardial effusion is visualized. Aorta: There is no dilatation of the ascending aorta. There is no dilatation of the aortic root. Venous: The inferior vena cava appears normal in size. There is a greater than 50% respiratory change in the inferior vena cava dimension. Measurements Chambers 2D Name Value Normal Range IVSd (2D) 0.83 cm (0.6 - 1.1) LVPWd (2D) 0.98 cm (0.6 - 1.1) LVIDd (2D) 3.71 cm (3.7 - 5.6) LVIDs (2D) 2.93 cm (2 - 3.8) LV FS (2D) 21.12 % - EF Teichholz (2D) 43.71 % - Ao root diameter (2D) 3.02 cm (2 - 3.7) Volumes/Mass Name Value Normal Range LA ESV SP 4CH (A/L) 36.8 ml - LA ESV SP 2CH (A/L) 45.89 ml - LA ESV BP (A/L) 42.35 ml - LA ESV BP (A/L) index 26.63 ml/m2 - LA ESV SP 4CH (MOD) 34.42 ml - LA ESV SP 2CH (MOD) 44.21 ml - LA ESV BP (MOD) 39.82 ml - LA ESV BP (MOD) index 25.05 ml/m2 - Aortic Valve Name Value Normal Range LVOT diameter 1.63 cm - Tricuspid Valve Name Value Normal Range TR Vmax 2.56 m/sec - TR peak gradient 26 mmHg - RAP 3 mmHg - RVSP 29 mmHg - IVC diameter 1.83 cm (1.2 - 2.3) Dela Cruz/IV: Voiding Method Indwelling Catheter IV Catheter Type [Forearm] Peripheral IV IV Catheter Type [Left Forearm Peripheral IV ] IV Catheter Type [Right Peripheral IV Antecubital] IV Catheter Type [Right Hand] Peripheral IV IV Catheter Type [Right Wrist] Peripheral IV IV Catheter Type [Left Wrist] Peripheral IV IV Catheter Type [Left Peripheral IV Antecubital] IV Catheter Type [Right INT / Saline Lock Forearm] IV Catheter Type [Left Hand] Peripheral IV Active Medications - Current Medications Current Medications: Generic Name Dose Route Start Last Admin Trade Name Freq PRN Reason Stop Dose Admin Acetaminophen 650 mg 12/06/19 10:25 12/25/19 00:59 Tylenol FEEDTUBE 650 mg Q6H PRN Administration TEMP >/=100.3 Lipase/Protease/Amylase 1 each 11/23/19 11:[address] 10,500 Unit FEEDTUBE PRN PRN For Clogged Feeding Tube Fentanyl 50 mcg 12/05/19 02:10 12/12/19 20:04 Sublimaze IV 50 mcg Q10MIN PRN Administration ANALGESIA Glycopyrrolate 1 mg 12/24/19 14:00 12/26/19 13:02 Robinul PO 1 mg TID LUCHO Administration Hydralazine HCl 10 mg 11/24/19 00:45 12/18/19 13:25 Apresoline IV 10 mg Q6H PRN Administration SBP > 160 Hydroxyzine Pamoate 25 mg 12/06/19 10:00 12/26/19 09:36 Vistaril PO 25 mg BID LUCHO Administration Vancomycin HCl 750 mg/ Sodium 265 mls @ 166.667 mls/hr 12/24/19 22:00 21:56 Chloride IV 12/30/19 21:59 166.667 mls/hr Q72H LUCHO Administration Lactulose 30 gm 12/11/19 11:00 12/26/19 09:37 Cephulac PO Not Given BID LUCHO Lansoprazole 30 mg 11/27/19 10:00 12/26/19 09:37 Prevacid Solutab FEEDTUBE 30 mg QDAY LUCHO Administration Levetiracetam 500 mg 11/29/19 10:00 12/26/19 09:36 Keppra PO 500 mg BID LUCHO Administration Lorazepam 2 mg 11/26/19 11:09 12/25/19 00:17 Ativan IV 2 mg Q4H PRN Administration Agitation Metronidazole 500 mg 12/25/19 09:00 12/26/19 13:02 Flagyl PO 500 mg Q8HR LUCHO Administration Mirtazapine 30 mg 12/06/19 10:00 12/26/19 09:36 Remeron PO 30 mg DAILY LUCHO Administration Morphine Sulfate 2 mg 12/12/19 18:40 12/24/19 23:04 Morphine IV 2 mg Q4H PRN Administration Pain, Moderate (4-6) Ondansetron HCl 4 mg 12/10/19 07:53 12/10/19 09:51 Zofran IV 4 mg Q4H PRN Administration Nausea And Vomiting Quetiapine Fumarate 200 mg 12/23/19 10:00 12/26/19 09:37 Seroquel PO 200 mg QAM LUCHO Administration Quetiapine Fumarate 200 mg 12/25/19 22:00 12/26/19 00:14 Seroquel PO 200 mg QHS LUCHO Administration Scopolamine 1 each 12/12/19 15:00 12/24/19 15:00 Transderm-Scop TD 1 each Q3D LUCHO Administration Senna/Docusate Sodium 2 tab 12/24/19 07:00 Senokot S PO BID PRN CONSTIPATION Sertraline HCl 25 mg 12/06/19 10:00 12/26/19 09:36 Zoloft PO 25 mg QDAY LUCHO Administration Simple Syrup 15 ml 11/23/19 11:50 Simple Syrup FEEDTUBE PRN PRN Hypoglycemia Simple Syrup 30 ml 11/23/19 11:50 Simple Syrup FEEDTUBE PRN PRN Hypoglycemia Sodium Bicarbonate 325 mg 11/23/19 11:50 Sodium Bicarbonate FEEDTUBE PRN PRN For Clogged Feeding Tube Tamsulosin HCl 0.4 mg 12/14/19 13:00 12/26/19 09:37 Flomax PO 0.4 mg QDAY LUCHO Administration Nutrition/Malnutrition Assess - Dietary Evaluation Nutrition/Malnutrition Findings: Nutrition Notes Start: 11/23/19 11:29 Freq: Status: Active Protocol: Document 12/21/19 14:01 LM (Rec: 12/21/19 14:05 LM [email or web address]) Nutrition Notes Initial or Follow up Reassessment Current Diagnosis Hypertension Other Pertinent Diagnosis Cardaic arrest, ETOH dependence, UTI Current Diet Vital AF 1.2 at 50 ml/hr Labs/Tests Na 140 Pertinent Medications Reviewed Height 5 ft 6 in Weight 61.7 kg [place] Body Weight (kg) 59.09 BMI 21.9 Weight change and time frame wt change noted, pt with edema Subjective/Other Information Per RN pt is tolerating TF at goal. Na corrected. Percent of energy/protein needs met: 97%/100% Burn Absent Trauma Absent GI Symptoms None Current % PO Negligible Minimum of two criteria No Fluid Accumulation Mild (non-severe) #1 Nutrition Diagnosis Inadequate oral intake Diagnosis Progress(for reassessment Continues documentation) Is patient on ventilator? Yes Is Patient Ambulatory and/or Out of Bed No REE-([facility]-confined to bed) [phone] Calculation Used for Recommendations [facility] Additional Notes Protein: 66-110g (1.2-2g/kg) Fluid: 1 ml/kcal Nutrition Intervention Change Diet Order: TF Nutrition Support: Vital AF 1.2 at 50 ml/hr Flush 80 ml q4h Kcal 1,440 Protein (gm) 90 Fluid (mL) 973 Goal #1 TF tolerance Goal #2 Meet at least 80% of energy and protein needs via TF Anticipated Discharge Needs: unable to determine at this time Follow-Up By: 12/28/19 Additional Comments Follow for stable TF tolerance
[2019-12-26 14:39] LABS: Hematocrit 25.5 % (30.3-42.9); Hemoglobin 7.9 gm/dl (10.1-14.3); Mean Corpuscular HGB Conc 31 % (30-34); Mean Corpuscular Volume 90 fl (79-97); Platelet Count 894 K/mm3 (140-440); Red Blood Count 2.83 M/mm3 (3.65-5.03)
[2019-12-26 14:51] LABS: Calcium 9.3 mg/dL (8.4-10.2)
[2019-12-27 04:54] LABS: Basophils # (Auto) 0.2 K/mm3 (0.0-0.1); Basophils % (Auto) 0.9 % (0.0-1.8); Eosinophils # (Auto) 0.2 K/mm3 (0.0-0.4); Hematocrit 25.2 % (30.3-42.9); Lymphocytes # (Auto) 1.5 K/mm3 (1.2-5.4); Lymphocytes % (Auto) 8.4 % (13.4-35.0); Mean Corpuscular HGB Conc 32 % (30-34); Mean Corpuscular Volume 88 fl (79-97); Monocytes # (Auto) 1.4 K/mm3 (0.0-0.8); Monocytes % (Auto) 7.5 % (0.0-7.3); Platelet Count 873 K/mm3 (140-440); Red Blood Count 2.86 M/mm3 (3.65-5.03); Red Cell Distribution Width 19.2 % (13.2-15.2)
[2019-12-27 05:17] LABS: Calcium 9.5 mg/dL (8.4-10.2)
--- NOTE | 2019-12-27 07:39 | Progress Note ---
Assessment and Plan Assessment and plan: Patient is a 54-year-old woman with a history of Hypertension, Depression, tobacco and alcohol dependency who presented to [facility] ED on 11/22/2019 due to cardiac arrest outside of the hospital. EMS found pt in PEA. Upon their arrival patient in sinus tachycardia. EMS were unable to intubate patient with a ET tube because she was clenching down therefore Joe airway placed per records. Patient received Narcan and Epinephrine. Patient's rhythm changed to PEA to sinus bradycardia, to PEA, then to sinus tach after receiving Narcan and Epinephrine. Per the ED physician who evaluated pt, Patient presented with a pulse, intermittent respirations, and bagging support via Joe airway with O2 sat of 100%. Accu-Chek of 71 obtained by EMS Status post cardiac arrest, etiology unknown Acute respiratory failure with hypoxia s/p Intubation via ETT >96 hours: Trach and PEG planned, CCM following Acute cystitis with Sepsis, not sure POA, treated with antibiotics and this completed a few days 11/29/2019 ago no growth was noted on cultures no fever. We will continue off antibiotics at this time. Seizure disorder: treat with Keppra Presumed anoxic brain injury: Neurology is following Alcohol abuse: CIWA protocol Acute metabolic encephalopathy/toxic encephalopathy due to the above BHAVANA secondary to vasomotor nephropathy: treat with IVF Hypertension: watch bp closely, prn IV antihypertensives prn Distended abdomen: treat with NGT to suction Transaminitis with Ischemic hepatitis Metabolic acidosis/alcoholic acidosis/lactic acidosis H. Influenzae, tracheobronchitis Hypernatremia: free water and monitor bmp closely Full code DVT ppx: held sq heparin due to drop in h/h and anemia 12/04-: Patient failed CPAP trial became apneic according to documentation. No clinical change, continue current management, monitor H/H Awaiting labs. No new changes at this time opens eyes. Surgeon discussed trach and PEG with family but they want to get more information about hospice which they have been directed to the case management assistant. Patient overnight had a episode of vomiting. Zofran started. 12/11/19: I took over patient care on day 18, Patient remains intubated, daily weaning trails. Trach and PEG planned once family consents. Mother is Anh Jesus @ [phone]. CCT 31 minutes 12/12/19: transfuse PRBC, s/p trach and PEG 3/26/20: Trach and PEG done, New fevers today, suspected Aspiration Pneumonitis vs Atelectasis; get blood cultures and empirically treat with ABX, levaquin/flagyl IV combo. Renewed restraints. ARF improved drastically as Cr went from 2.8 to 1.9 overnigh. however, WBC skyrocketed to 38.3k from 18k. Will repeat bmp and cbc, CCT 33 minutes 12/14/19: WBC improved slightly, potassium 2.5, renal function continue to improve. replete potassium, still febrile, re-consulted ID; give free water flushes via PEG. Dispo: aggressive wean and once off vent will have to discharge home, no insurance. 12/15/19: Still on MV Peep 6 fiO2 50%, ordered AM labs, renewed restraints. Right arm swollen, get Venous doppler-not done today due to COVID-19-->tomorrow 12/16/19: still on MV, PEEP 6 FiO2 30%, replete potassium, renewed restraints, give Tylenol of fevers (first real temp >100.4 since 12/14/19), green-culture, get CXR, UA. Venous doppler done and negative for DVT 12/17/19: Day 24 on MV, PEEP 6 FiO2 30%, trying to wean, held sq heparin due to drop in h/h and anemia, renewed restraints, fever appears to be due to worsening pneumonia, UA negative, pCXR Impression: Slight interval worsening of a consolidative opacity in the left mid to lower lung, worrisome for pneumonia in the appropriate clinical setting. Adjust Vancomycin dose continue cefepime with ID following. Swollen right arm with Venous doppler of right arm r/o DVT ordered but not done due to COVID-19, 12/25/19: Resumed care, Hospice discussed yesterday, will follow up. WBC increased to 36.4k, hgb steady at 8.4, +FOBT, Cr creeping up at 1.7 12/26/19: I called Jeremy Anh Jesus ([phone]) and she asked if I could call her back. Patient remains in PVS (persistent vegetative state) with poor progn osis, doesn't really need restraints, still needing Mechanical Ventilation/Life support. Not sedated Possible withdraw today, I called Dr. Naik. I called and d/w mother, she wants to come and withdraw daughter from [facility] tomorrow evening around 6-7pm 12/27/19: still poor prognosis, still in PVS, anticipate Withdrawal today History Interval history: Patient was seen and examined. Follow-up on current diagnosis of Respiratory failure. Overnight uneventful as no events directly reported to me. Imaging, nursing note, chart, labs and old chart reviewed. PUI?: No Hospitalist Physical - Physical exam Narrative exam: Gen: critical ill, intubated, unresponsive not on sedation HEENT: ETT in place Neck: supple, no adenopathy, no thyromegaly, no JVD CVS/Heart: Regular Tachycardia, normal S1S2, pulses present bilaterally Chest/Lungs: CTA B, Symmetrical chest expansion, good air entry bilaterally GI/Abdomen: soft, NTND, good bowel sounds, no guarding or rebound MSK: right arm swollen Neuro: doesnt follow commands Psych: not responding - Constitutional Vitals: Temp Pulse Resp BP Pulse Ox 98.8 F 106 H 26 H 131/71 99 12/27/19 04:00 12/27/19 06:00 12/27/19 06:00 12/27/19 06:00 12/27/19 06:00 General appearance: Present: no acute distress, other (on vent with sedation) Results - Labs CBC & Chem 7: 12/27/19 03:42 12/27/19 03:42 Labs: Laboratory Last Values WBC 18.0 K/mm3 (4.5-11.0) H 12/27/19 03:42 RBC 2.86 M/mm3 (3.65-5.03) L 12/27/19 03:42 Hgb 8.0 gm/dl (10.1-14.3) L 12/27/19 03:42 Hct 25.2 % (30.3-42.9) L 12/27/19 03:42 MCV 88 fl (79-97) 12/27/19 03:42 MCH 28 pg (28-32) 12/27/19 03:42 MCHC 32 % (30-34) 12/27/19 03:42 RDW 19.2 % (13.2-15.2) H 12/27/19 03:42 Plt Count 873 K/mm3 (140-440) H 12/27/19 03:42 Lymph % (Auto) 8.4 % (13.4-35.0) L 12/27/19 03:42 [place] % (Auto) 7.5 % (0.0-7.3) H 12/27/19 03:42 Eos % (Auto) 1.0 % (0.0-4.3) 12/27/19 03:42 Baso % (Auto) 0.9 % (0.0-1.8) 12/27/19 03:42 Lymph # 1.5 K/mm3 (1.2-5.4) 12/27/19 03:42 [place] # 1.4 K/mm3 (0.0-0.8) H 12/27/19 03:42 Eos # 0.2 K/mm3 (0.0-0.4) 12/27/19 03:42 Baso # 0.2 K/mm3 (0.0-0.1) H 12/27/19 03:42 Add Manual Diff Complete 12/25/19 03:47 Total Counted 200 12/25/19 03:47 Seg Neutrophils % 82.2 % (40.0-70.0) H 12/27/19 03:42 Seg Neuts % (Manual) 97.5 % (40.0-70.0) H 12/25/19 03:47 Band Neutrophils % 0 % 12/25/19 03:47 Lymphocytes % (Manual) 1.0 % (13.4-35.0) L 12/25/19 03:47 Reactive Lymphs % (Man) 0 % 12/25/19 03:47 Monocytes % (Manual) 1.5 % (0.0-7.3) 12/25/19 03:47 Eosinophils % (Manual) 0 % (0.0-4.3) 12/25/19 03:47 Basophils % (Manual) 0 % (0.0-1.8) 12/25/19 03:47 Metamyelocytes % 0 % 12/25/19 03:47 Myelocytes % 0 % 12/25/19 03:47 Promyelocytes % 0 % 12/25/19 03:47 Blast Cells % 0 % 12/25/19 03:47 Nucleated RBC % Not Reportable 12/25/19 03:47 Seg Neutrophils # 14.8 K/mm3 (1.8-7.7) H 12/27/19 03:42 Seg Neutrophils # Man 35.3 K/mm3 (1.8-7.7) H 12/25/19 03:47 Band Neutrophils # 0.0 K/mm3 12/25/19 03:47 Lymphocytes # (Manual) 0.4 K/mm3 (1.2-5.4) L 12/25/19 03:47 Abs React Lymphs (Man) 0.0 K/mm3 12/25/19 03:47 Monocytes # (Manual) 0.5 K/mm3 (0.0-0.8) 12/25/19 03:47 Eosinophils # (Manual) 0.0 K/mm3 (0.0-0.4) 12/25/19 03:47 Basophils # (Manual) 0.0 K/mm3 (0.0-0.1) 12/25/19 03:47 Metamyelocytes # 0.0 K/mm3 12/25/19 03:47 Myelocytes # 0.0 K/mm3 12/25/19 03:47 Promyelocytes # 0.0 K/mm3 12/25/19 03:47 Blast Cells # 0.0 K/mm3 12/25/19 03:47 Pathologist Review 12/13/19 07:48 WBC Morphology Not Reportable 12/25/19 03:47 Hypersegmented Neuts Not Reportable 12/25/19 03:47 Hyposegmented Neuts Not Reportable 12/25/19 03:47 Hypogranular Neuts Not Reportable 12/25/19 03:47 Smudge Cells Not Reportable 12/25/19 03:47 Toxic Granulation Not Reportable 12/25/19 03:47 Toxic Vacuolation Not Reportable 12/25/19 03:47 Dohle Bodies Not Reportable 12/25/19 03:47 Pelger-Huet Anomaly Not Reportable 12/25/19 03:47 Dominique Rods Not Reportable 12/25/19 03:47 Platelet Estimate Consistent w auto 12/25/19 03:47 Clumped Platelets Not Reportable 12/25/19 03:47 Plt Clumps, EDTA Not Reportable 12/25/19 03:47 Large Platelets Not Reportable 12/25/19 03:47 Giant Platelets Not Reportable 12/25/19 03:47 Platelet Satelliting Not Reportable 12/25/19 03:47 Plt Morphology Comment Not Reportable 12/25/19 03:47 RBC Morphology Not Reportable 12/25/19 03:47 Dimorphic RBCs Not Reportable 12/25/19 03:47 Polychromasia Not Reportable 12/25/19 03:47 Hypochromasia Not Reportable 12/25/19 03:47 Poikilocytosis Not Reportable 12/25/19 03:47 Anisocytosis 1+ 12/25/19 03:47 Microcytosis Not Reportable 12/25/19 03:47 Macrocytosis Not Reportable 12/25/19 03:47 Spherocytes Not Reportable 12/25/19 03:47 Pappenheimer Bodies Not Reportable 12/25/19 03:47 Sickle Cells Not Reportable 12/25/19 03:47 Target Cells Not Reportable 12/25/19 03:47 Tear Drop Cells Not Reportable 12/25/19 03:47 Ovalocytes Not Reportable 12/25/19 03:47 Helmet Cells Not Reportable 12/25/19 03:47 [place] Bodies Not Reportable 12/25/19 03:47 [place] Rings Not Reportable 12/25/19 03:47 [place] Cells Not Reportable 12/25/19 03:47 Bite Cells Not Reportable 12/25/19 03:47 Crenated Cell Not Reportable 12/25/19 03:47 Elliptocytes Not Reportable 12/25/19 03:47 Acanthocytes (Spur) Not Reportable 12/25/19 03:47 Rouleaux Not Reportable 12/25/19 03:47 Hemoglobin C Crystals Not Reportable 12/25/19 03:47 Schistocytes Not Reportable 12/25/19 03:47 Malaria parasites Not Reportable 12/25/19 03:47 Gregg Bodies Not Reportable 12/25/19 03:47 Hem Pathologist Commnt No 12/25/19 03:47 PT 17.0 Sec. (12.2-14.9) H 11/23/19 03:47 INR 1.36 (0.87-1.13) H 11/23/19 03:47 APTT 128.2 Sec. (24.2-36.6) H* 11/23/19 03:47 Heparin Anti-Xa Level 0.31 U.I./ml (0.3-0.7) 11/23/19 09:03 ABG pH 7.389 pH Units (7.350-7.450) 12/22/19 08:40 ABG pCO2 37.5 mm Hg 12/22/19 08:40 ABG pO2 75.6 mm Hg (80.0-90.0) L 12/22/19 08:40 ABG HCO3 22.1 mmol/L (20.0-26.0) 12/22/19 08:40 ABG O2 Saturation 96.7 % (95.0-99.0) 12/22/19 08:40 ABG O2 Content 9.1 (0.0-44) 12/22/19 08:40 ABG Base Excess -2.6 mmol/L (-2.0-3.0) L 12/22/19 08:40 ABG Hemoglobin 6.8 gm/dl (12.0-16.0) L 12/22/19 08:40 ABG Carboxyhemoglobin 1.8 % (0.0-5.0) 12/22/19 08:40 ABG Methemoglobin 0.3 % (0.0-1.5) 12/22/19 08:40 Oxyhemoglobin 94.6 % (95.0-99.0) L 12/22/19 08:40 FiO2 30 % 12/22/19 08:40 Sodium 143 mmol/L (137-145) 12/27/19 03:42 Potassium 4.3 mmol/L (3.6-5.0) 12/27/19 03:42 Chloride 105.8 mmol/L (98-107) 12/27/19 03:42 Carbon Dioxide 23 mmol/L (22-30) 12/27/19 03:42 Anion Gap 19 mmol/L 12/27/19 03:42 BUN 73 mg/dL (7-17) H 12/27/19 03:42 Creatinine 1.4 mg/dL (0.7-1.2) H 12/27/19 03:42 Estimated GFR 47 ml/min 12/27/19 03:42 BUN/Creatinine Ratio 52 % 12/27/19 03:42 Glucose 119 mg/dL (65-100) H 12/27/19 03:42 POC Glucose 131 (70-105) H 12/27/19 05:45 Lactic Acid 1.80 mmol/L (0.7-2.0) 11/25/19 05:05 Calcium 9.5 mg/dL (8.4-10.2) 12/27/19 03:42 Ionized Calcium 4.5 mg/dL (4.8-5.6) L 11/23/19 06:32 Phosphorus 4.20 mg/dL (2.5-4.5) D 11/28/19 08:59 Magnesium 2.30 mg/dL (1.7-2.3) 11/29/19 13:41 Total Bilirubin 0.40 mg/dL (0.1-1.2) 12/13/19 07:48 AST 27 units/L (5-40) 12/13/19 07:48 ALT 26 units/L (7-56) 12/13/19 07:48 Alkaline Phosphatase 316 units/L (35-129) H 12/13/19 07:48 Ammonia 42.0 umol/L (25-60) 11/29/19 13:41 Total Creatine Kinase 139 units/L (30-135) H 11/22/19 23:27 CK-MB (CK-2) 8.3 ng/mL (0.0-4.0) H 11/22/19 23:27 CK-MB (CK-2) Rel Index 5.9 (0-4) H 11/22/19 23:27 Troponin T < 0.010 ng/mL (0.00-0.029) 11/22/19 23:27 Total Protein 6.8 g/dL (6.3-8.2) 12/13/19 07:48 Albumin 2.4 g/dL (3.9-5) L 12/13/19 07:48 Albumin/Globulin Ratio 0.5 % 12/13/19 07:48 Lipase 18 units/L (13-60) 11/23/19 00:34 Procalcitonin 1.09 ng/mL (<0.15) 11/23/19 04:53 Urine Color Yellow (Yellow) 12/16/19 Unknown Urine Turbidity Slightly-cloudy (Clear) 12/16/19 Unknown Urine pH 5.0 (5.0-7.0) 12/16/19 Unknown Ur Specific [place] 1.018 (1.003-1.030) 12/16/19 Unknown Urine Protein 30 mg/dl mg/dL (Negative) 12/16/19 Unknown Urine Glucose (UA) Neg mg/dL (Negative) 12/16/19 Unknown Urine Ketones Neg mg/dL (Negative) 12/16/19 Unknown Urine Blood Sm (Negative) 12/16/19 Unknown Urine Nitrite Neg (Negative) 12/16/19 Unknown Urine Bilirubin Neg (Negative) 12/16/19 Unknown Urine Urobilinogen < 2.0 mg/dL (<2.0) 12/16/19 Unknown Ur Leukocyte Esterase Neg (Negative) 12/16/19 Unknown Urine WBC (Auto) 6.0 /HPF (0.0-6.0) 12/16/19 Unknown Urine RBC (Auto) 9.0 /HPF (0.0-6.0) 12/16/19 Unknown U Epithel Cells (Auto) < 1.0 /HPF (0-13.0) 12/16/19 Unknown Urine Bacteria (Auto) 2+ /HPF (Negative) 11/22/19 23:17 Hyaline Casts 3 /LPF 12/16/19 Unknown Granular Casts 3 /LPF 12/16/19 Unknown Urine Mucus Few /HPF 12/16/19 Unknown Vancomycin Trough 33.8 ug/mL (5.0-20.0) H 12/21/19 08:56 Random Vancomycin 16.2 ug/mL (0-40.0) 12/24/19 04:31 Salicylates < 0.3 mg/dL (2.8-20.0) L 11/22/19 23:27 Urine Opiates Screen Presumptive negative 11/22/19 23:17 Urine Methadone Screen Presumptive negative 11/22/19 23:17 Acetaminophen < 5.0 ug/mL (10.0-30.0) L 11/22/19 23:27 Ur Barbiturates Screen Presumptive negative 11/22/19 23:17 Ur Phencyclidine Scrn Presumptive negative 11/22/19 23:17 Ur Amphetamines Screen Presumptive negative 11/22/19 23:17 U Benzodiazepines Scrn Presumptive negative 11/22/19 23:17 Urine Cocaine Screen Presumptive negative 11/22/19 23:17 U Marijuana (THC) Screen Presumptive negative 03/05/20 23:17 Drugs of Abuse Note Disclamer 11/22/19 23:17 Plasma/Serum Alcohol 0.08 % (0-0.07) H 11/22/19 23:27 Hepatitis A IgM Ab Non-reactive (NonReactive) 11/23/19 01:19 Hep Bs Antigen Non-reactive (Negative) 11/23/19 01:19 Hep B Core IgM Ab Non-reactive (NonReactive) 11/23/19 01:19 Hepatitis C Antibody Non-reactive (NonReactive) 11/23/19 01:19 Blood Type O POSITIVE 12/21/19 14:54 Antibody Screen Negative 12/21/19 14:54 Crossmatch See Detail 12/21/19 14:54 - Diagnostic Impressions Diagnostic Impressions: Echocardiogram 11/23/19 03:58 Transthoracic Echocardiogram Indication: Cardiac arrest BP: 131/89 HR: 115 Conclusions *The study quality is technically difficult. *Global left ventricular wall motion and contractility are within normal limits. *The estimated ejection fraction is 55-60%. *Abnormal left ventricular diastolic filling is observed, consistent with impaired relaxation. *There is no pericardial effusion. Findings Procedure Info: The study quality is technically difficult. The study was technically limited due to the patient's inability to lay in the left lateral decubitus position. Left Ventricle: The left ventricular chamber size is normal. There is no left ventricular hypertrophy. Global left ventricular wall motion and contractility are within normal limits. Global left ventricular systolic function is normal. The estimated ejection fraction is 55-60%. Abnormal left ventricular diastolic filling is observed, consistent with impaired relaxation. Left Atrium: The left atrial chamber size is normal. Aortic Valve: The aortic valve leaflets are mildly thickened. Mitral Valve: The mitral valve leaflets are mildly thickened. There is no evidence of mitral regurgitation. Tricuspid Valve: The tricuspid valve leaflets are normal. There is trace tricuspid regurgitation. The right ventricular systolic pressure is calculated at 33 mmHg. Pulmonic Valve: The pulmonic valve appears normal. Pericardium: The pericardium appears normal. There is no pericardial effusion. Aorta: The aorta appears normal. Venous: The inferior vena cava appears normal in size. Measurements Chambers 2D Name Value Normal Range IVSd (2D) 0.94 cm (0.6 - 1.1) LVPWd (2D) 0.81 cm (0.6 - 1.1) LVIDd (2D) 3.6 cm (3.7 - 5.6) LVIDs (2D) 2.27 cm (2 - 3.8) LV FS (2D) 36.93 % - EF Teichholz (2D) 67.76 % - Ao root diameter (2D) 3.03 cm (2 - 3.7) Volumes/Mass Name Value Normal Range LA ESV SP 4CH (A/L) 16.89 ml - LA ESV SP 4CH (MOD) 15.52 ml - Diastolic/Systolic Function Name Value Normal Range MV E-wave Vmax 0.55 m/sec - MV deceleration time 200.89 msec - MV A-wave Vmax 0.68 m/sec - MV E:A ratio 0.82 ratio - Aortic Valve Name Value Normal Range AV Vmax 1.1 m/sec - AV VTI 15.9 cm - AV peak gradient 4.86 mmHg - AV mean gradient 2.59 mmHg - LVOT diameter 2 cm - LVOT Vmax 1.03 m/sec - LVOT VTI 15.87 cm - LVOT peak gradient 4.24 mmHg - LVOT mean gradient 2.41 mmHg - SV LVOT 49.77 ml - JOSÉ MIGUEL (continuity Vmax) 2.93 cm2 - JOSÉ MIGUEL (continuity VTI) 3.13 cm2 - Tricuspid Valve Name Value Normal Range TR Vmax 2.74 m/sec - TR peak gradient 303 mmHg - RAP 3 mmHg - RVSP 33 mmHg - IVC diameter 1.77 cm (1.2 - 2.3) Pulmonic Valve/Qp:Qs Name Value Normal Range PV Vmax 0.77 m/sec - PV peak gradient 2.4 mmHg - PV acceleration time 114.18 msec - Echocardiogram Limited Views 12/17/19 14:53 Transthoracic Echocardiogram Indication: R/O Vegetations BP: 144/83 HR: 133 Conclusions *Global left ventricular systolic function is mildly decreased. *The estimated ejection fraction is 45-50%. *A trivial pericardial effusion is visualized. Findings Left Ventricle: The left ventricular chamber size is normal. Global left ventricular systolic function is mildly decreased. The estimated ejection fraction is 45-50%. Left Atrium: The left atrial chamber size is normal. Right Ventricle: The right ventricular cavity size is normal. Right Atrium: The right atrial cavity size is normal. Aortic Valve: The aortic valve is not well visualized. There is no evidence of aortic regurgitation. Mitral Valve: The mitral valve leaflets are mildly thickened. There is trace of mitral regurgitation. Tricuspid Valve: The tricuspid valve leaflets are mildly thickened. There is trace tricuspid regurgitation. The right ventricular systolic pressure is calculated at 29 mmHg. Pulmonic Valve: The pulmonic valve is not well visualized. There is no evidence of pulmonic regurgitation. Pericardium: A trivial pericardial effusion is visualized. Aorta: There is no dilatation of the ascending aorta. There is no dilatation of the aortic root. Venous: The inferior vena cava appears normal in size. There is a greater than 50% respiratory change in the inferior vena cava dimension. Measurements Chambers 2D Name Value Normal Range IVSd (2D) 0.83 cm (0.6 - 1.1) LVPWd (2D) 0.98 cm (0.6 - 1.1) LVIDd (2D) 3.71 cm (3.7 - 5.6) LVIDs (2D) 2.93 cm (2 - 3.8) LV FS (2D) 21.12 % - EF Teichholz (2D) 43.71 % - Ao root diameter (2D) 3.02 cm (2 - 3.7) Volumes/Mass Name Value Normal Range LA ESV SP 4CH (A/L) 36.8 ml - LA ESV SP 2CH (A/L) 45.89 ml - LA ESV BP (A/L) 42.35 ml - LA ESV BP (A/L) index 26.63 ml/m2 - LA ESV SP 4CH (MOD) 34.42 ml - LA ESV SP 2CH (MOD) 44.21 ml - LA ESV BP (MOD) 39.82 ml - LA ESV BP (MOD) index 25.05 ml/m2 - Aortic Valve Name Value Normal Range LVOT diameter 1.63 cm - Tricuspid Valve Name Value Normal Range TR Vmax 2.56 m/sec - TR peak gradient 26 mmHg - RAP 3 mmHg - RVSP 29 mmHg - IVC diameter 1.83 cm (1.2 - 2.3) Dela Cruz/IV: Voiding Method Indwelling Catheter IV Catheter Type [Forearm] Peripheral IV IV Catheter Type [Left Forearm Peripheral IV ] IV Catheter Type [Right Peripheral IV Antecubital] IV Catheter Type [Right Hand] Peripheral IV IV Catheter Type [Right Wrist] Peripheral IV IV Catheter Type [Left Wrist] Peripheral IV IV Catheter Type [Left Peripheral IV Antecubital] IV Catheter Type [Right INT / Saline Lock Forearm] IV Catheter Type [Left Hand] Peripheral IV Active Medications - Current Medications Current Medications: Generic Name Dose Route Start Last Admin Trade Name Freq PRN Reason Stop Dose Admin Acetaminophen 650 mg 12/06/19 10:25 12/25/19 00:59 Tylenol FEEDTUBE 650 mg Q6H PRN Administration TEMP >/=100.3 Lipase/Protease/Amylase 1 each 11/23/19 11:[address] 10,500 Unit FEEDTUBE PRN PRN For Clogged Feeding Tube Fentanyl 50 mcg 12/05/19 02:10 12/12/19 20:04 Sublimaze IV 50 mcg Q10MIN PRN Administration ANALGESIA Glycopyrrolate 1 mg 12/24/19 14:00 12/26/19 21:51 Robinul PO 1 mg TID LUCHO Administration Hydralazine HCl 10 mg 11/24/19 00:45 12/18/19 13:25 Apresoline IV 10 mg Q6H PRN Administration SBP > 160 Hydroxyzine Pamoate 25 mg 12/06/19 10:00 12/26/19 22:07 Vistaril PO 25 mg BID LUCHO Administration Vancomycin HCl 750 mg/ Sodium 265 mls @ 166.667 mls/hr 12/24/19 22:00 0 21:56 Chloride IV 12/30/19 21:59 166.667 mls/hr Q72H LUCHO Administration Lactulose 30 gm 12/11/19 11:00 12/26/19 21:51 Cephulac PO 30 gm BID LUCHO Administration Lansoprazole 30 mg 11/27/19 10:00 12/26/19 09:37 Prevacid Solutab FEEDTUBE 30 mg QDAY LUCHO Administration Levetiracetam 500 mg 11/29/19 10:00 12/26/19 21:50 Keppra PO 500 mg BID LUCHO Administration Lorazepam 2 mg 11/26/19 11:09 12/25/19 00:17 Ativan IV 2 mg Q4H PRN Administration Agitation Metronidazole 500 mg 12/25/19 09:00 12/26/19 21:51 Flagyl PO 04/12/20 06:01 500 mg Q8HR LUCHO Administration Mirtazapine 30 mg 12/06/19 10:00 12/26/19 09:36 Remeron PO 30 mg DAILY LUCHO Administration Morphine Sulfate 2 mg 12/12/19 18:40 12/24/19 23:04 Morphine IV 2 mg Q4H PRN Administration Pain, Moderate (4-6) Ondansetron HCl 4 mg 12/10/19 07:53 12/10/19 09:51 Zofran IV 4 mg Q4H PRN Administration Nausea And Vomiting Quetiapine Fumarate 200 mg 12/23/19 10:00 12/26/19 09:37 Seroquel PO 200 mg QAM LUCHO Administration Quetiapine Fumarate 200 mg 12/25/19 22:00 12/26/19 21:51 Seroquel PO 200 mg QHS LUCHO Administration Scopolamine 1 each 12/12/19 15:00 12/24/19 15:00 Transderm-Scop TD 1 each Q3D LUCHO Administration Senna/Docusate Sodium 2 tab 12/24/19 07:00 Senokot S PO BID PRN CONSTIPATION Sertraline HCl 25 mg 12/06/19 10:00 12/26/19 09:36 Zoloft PO 25 mg QDAY LUCHO Administration Simple Syrup 15 ml 11/23/19 11:50 Simple Syrup FEEDTUBE PRN PRN Hypoglycemia Simple Syrup 30 ml 11/23/19 11:50 Simple Syrup FEEDTUBE PRN PRN Hypoglycemia Sodium Bicarbonate 325 mg 11/23/19 11:50 Sodium Bicarbonate FEEDTUBE PRN PRN For Clogged Feeding Tube Tamsulosin HCl 0.4 mg 12/14/19 13:00 12/26/19 09:37 Flomax PO 0.4 mg QDAY LUCHO Administration Nutrition/Malnutrition Assess - Dietary Evaluation Nutrition/Malnutrition Findings: Nutrition Notes Start: 11/23/19 11:29 Freq: Status: Active Protocol: Document 12/21/19 14:01 LM (Rec: 12/21/19 14:05 [email or web address]) Nutrition Notes Initial or Follow up Reassessment Current Diagnosis Hypertension Other Pertinent Diagnosis Cardaic arrest, ETOH dependence, UTI Current Diet Vital AF 1.2 at 50 ml/hr Labs/Tests Na 140 Pertinent Medications Reviewed Height 5 ft 6 in Weight 61.7 kg [place] Body Weight (kg) 59.09 BMI 21.9 Weight change and time frame wt change noted, pt with edema Subjective/Other Information Per RN pt is tolerating TF at goal. Na corrected. Percent of energy/protein needs met: 97%/100% Burn Absent Trauma Absent GI Symptoms None Current % PO Negligible Minimum of two criteria No Fluid Accumulation Mild (non-severe) #1 Nutrition Diagnosis Inadequate oral intake Diagnosis Progress(for reassessment Continues documentation) Is patient on ventilator? Yes Is Patient Ambulatory and/or Out of Bed No REE-([place]-[facility] Jeor-confined to bed) [phone] Calculation [facility] Additional Notes Protein: 66-110g (1.2-2g/kg) Fluid: 1 ml/kcal Nutrition Intervention Change Diet Order: TF Nutrition Support: Vital AF 1.2 at 50 ml/hr Flush 80 ml q4h Kcal 1,440 Protein (gm) 90 Fluid (mL) 973 Goal #1 TF tolerance Goal #2 Meet at least 80% of energy and protein needs via TF Anticipated Discharge Needs: unable to determine at this time Follow-Up By: 12/28/19 Additional Comments Follow for stable TF tolerance
[2019-12-27] MEDS: levETIRAcetam 500 MG/5 ML ORAL LIQD PO SCH ×2 (10:24→22:06)
[2019-12-27] MEDS: TAMSULOSIN 0.4 MG CAP PO SCH (10:24)
[2019-12-27] MEDS: SERTRALINE 25 MG TAB PO SCH (10:24)
[2019-12-27] MEDS: MIRTAZAPINE 30 MG TAB PO SCH (10:25)
[2019-12-27] MEDS: GLYCOPYRROLATE 1 MG TAB PO SCH ×3 (10:25→22:06)
[2019-12-27] MEDS: QUEtiapine 200 MG TAB PO SCH (10:25)
[2019-12-27] MEDS: LANSOPRAZOLE 30 MG SOLUTAB FEEDTUBE SCH (10:25)
--- NOTE | 2019-12-27 14:31 | Progress Note ---
Assessment and Plan Acute cardiopulmonary arrest with ROSC Acute hypoxemic respiratory failure on MVS Acute metabolic-toxic encephalopathy Metabolic acidosis/alcoholic acidosis/Lactic acidosis Ischemic hepatitis Leucocytosis with lactic acidosis Tobacco use disorder ALcohol use Disorder Hypokalemia High grade fevers (Recommend DNR status first. Secondly with her now tolerating PSV trials terminal extubation is frought with risk of sustained agitation in short term and likely significant patient discomfort; Will recommend hospice evaluation and transfer rather) - change lactulose to prn re: diarrhea - repeat CXR prn at this point - continue daily SAT's and assessment for readiness for SBT (For PSV trial today) - Continue to wean supplemental oxygen for target O2 sat's > 90% - continue to rest on AC mode qhs - VAP bundle addressed (continue aspiration precautions, HOB > 40) - continue bronchodilators with routine trach care and pulmonary hygiene per RT - continue Seroquel to see if aqids weaning as ventiolation is adequate and perhaps tachypnea on PSV mode has a neural component - continue Antibiotics per ID recommendations; de-escalate based on HILARIO /sensitivities / clinical progress - continue Seroquel for tentative delirium and to spare IV sedation - continue Reglan for G.I. motility - Continue VTE and Stress ulcer prophylaxis - Continue enteric nutritional support - Monitor glycemic control, with target blood glucose 140-180 mg/dL while critically ill (Avoid hypoglycemia) - ABG and CXR prn - Continue to avoid nephrotoxins, adjust all medications fro GFR and CrCL - Continue to avoid benzodiazepines , as much as possible, to reduce the possibility of delirium - Continue prn analgesia per CPOT score - Continue to maintain of sleep-wake cycle, avoid delirium - PT/OT/ROM exercises- awaiting PT/OT evaluation - Continue mobility protocol and skin assessment per protocol for pressure ulcer prevention - Continue to monitor for clinical seizures - Continue Nicotine withdrawal precautions, alcohol withdrawal precautions - continue other care per attending / other consultants ..... re-evaluate in am & prn CONDITION: CRITICAL PROGNOSIS: GUARDED CODE STATUS: FULL CODE The high probability of a clinically significant, sudden or life-threatening deterioration of the [respiratory, cardiovascular & neurologic] system(s) required my full and direct attention, intervention and personal management. The aggregate critical care time was [35] minutes without overlap. Time includes spent on; [x] Data Review and interpretation [x] Patient assessment and monitoring of vital signs [x] Documentation [x] Medication orders and management Subjective Date of service: 12/27/19 Principal diagnosis: Ac cardiopulmonary arrest; Ac hypoxemic resp failure; Acute encephalopathy Interval history: Patient is seen today for: Acute cardiopulmonary arrest with ROSC; Acute hypoxemic respiratory failure; Acute metabolic-toxic encephalopathy; Ischemic he patitis; Leucocytosis with lactic acidosis; Tobacco use disorder; Alcohol use Disorder; Hypokalemia; High grade fevers Seen and examined at bedside; 24hour events reviewed; nursing and respiratory care staff consulted; no adverse overnight events reported to me; resting pea cefully in bed; AMS is persistent; family reportedly now interested in withdrawal of care but she remains a full code; she is hopwever tolerating weaning tyoday at a Psupp of 16 cm H2O and pulling decent tidal volumes PUI?: No COVID19: Negative Objective Vital Signs - 12hr 12/27/19 12/27/19 12/27/19 02:30 02:45 03:00 Temperature Pulse Rate 103 H 105 H 102 H Pulse Rate [ From Monitor] Respiratory 26 H 17 26 H Rate Blood Pressure 132/81 136/94 136/94 O2 Sat by Pulse 98 96 98 Oximetry O2 Sat by Pulse Oximetry [ Assessment] 12/27/19 12/27/19 12/27/19 03:15 03:29 03:30 Temperature Pulse Rate 105 H 102 H Pulse Rate [ From Monitor] Respiratory 16 26 H Rate Blood Pressure 135/102 135/102 O2 Sat by Pulse 98 99 Oximetry O2 Sat by Pulse 98 Oximetry [ Assessment] 12/27/19 12/27/19 12/27/19 03:45 04:00 04:15 Temperature 98.8 F Pulse Rate 108 H 105 H 104 H Pulse Rate [ From Monitor] Respiratory 20 22 25 H Rate Blood Pressure 148/94 138/89 139/92 O2 Sat by Pulse 100 100 100 Oximetry O2 Sat by Pulse Oximetry [ Assessment] 12/27/19 12/27/19 12/27/19 04:30 04:45 05:00 Temperature Pulse Rate 105 H 104 H 105 H Pulse Rate [ 106 H From Monitor] Respiratory 18 34 H 25 H Rate Blood Pressure 144/95 139/89 131/71 O2 Sat by Pulse 100 100 99 Oximetry O2 Sat by Pulse Oximetry [ Assessment] 12/27/19 12/27/19 12/27/19 06:00 07:00 07:45 Temperature Pulse Rate 106 H 110 H 106 H Pulse Rate [ From Monitor] Respiratory 26 H 20 26 H Rate Blood Pressure 131/71 150/96 131/71 O2 Sat by Pulse 99 100 99 Oximetry O2 Sat by Pulse Oximetry [ Assessment] 12/27/19 12/27/19 12/27/19 07:47 08:00 09:00 Temperature 98.2 F Pulse Rate 111 H 116 H Pulse Rate [ 111 H From Monitor] Respiratory 20 20 Rate Blood Pressure 143/95 143/99 O2 Sat by Pulse 100 100 Oximetry O2 Sat by Pulse 99 Oximetry [ Assessment] 12/27/19 12/27/19 12/27/19 10:00 11:05 12:00 Temperature 98.0 F Pulse Rate 117 H 117 H Pulse Rate [ From Monitor] Respiratory 21 21 Rate Blood Pressure 145/97 145/97 O2 Sat by Pulse 99 99 Oximetry O2 Sat by Pulse Oximetry [ Assessment] Constitutional: no acute distress, other (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, with midline tracheostomy and mild dys-synchrony) Eyes: non-icteric ENT: oropharynx moist, other (s/p trach) Neck: supple, no lymphadenopathy, no JVD Effort: mildly labored Ascultation: Bilateral: diminished breath sounds, rhonchi Percussion: Bilateral: not dull Cardiovascular: regular rate and rhythm (tachycardia), other (S1,S2) Gastrointestinal: normoactive bowel sounds, soft, non-tender, non-distended Integumentary: normal Extremities: no cyanosis, no edema, pulses normal, no ischemia or petechiae Neurologic: unable to assess, other (awake but not tracking voice ) Psychiatric: other (Psychiatric: Unable to assess) CBC and BMP: 12/27/19 03:42 12/27/19 03:42 ABG, PT/INR, D-dimer: ABG ABG pH 7.389 pH Units (7.350-7.450) 12/22/19 08:40 ABG pCO2 37.5 mm Hg 12/22/19 08:40 ABG pO2 75.6 mm Hg (80.0-90.0) L 12/22/19 08:40 ABG O2 Saturation 96.7 % (95.0-99.0) 12/22/19 08:40 PT/INR, D-dimer PT 17.0 Sec. (12.2-14.9) H 11/23/19 03:47 INR 1.36 (0.87-1.13) H 11/23/19 03:47 Abnormal lab findings: Abnormal Labs 11/22/19 11/22/19 11/22/19 23:17 23:18 23:27 WBC 21.2 H RBC 3.59 L Hgb 9.8 L Hct MCH 27 L RDW 18.6 H Plt Count 454 H Lymph % (Auto) Gates % (Auto) Gates # Baso # Seg Neutrophils % Seg Neuts % (Manual) 86.0 H Lymphocytes % (Manual) 9.0 L Monocytes % (Manual) Seg Neutrophils # Seg Neutrophils # Man 18.2 H Lymphocytes # (Manual) Monocytes # (Manual) 1.1 H Eosinophils # (Manual) Basophils # (Manual) PT INR APTT ABG pH ABG pO2 ABG HCO3 ABG O2 Saturation ABG Base Excess ABG Hemoglobin Oxyhemoglobin Sodium Potassium Chloride Carbon Dioxide BUN Creatinine Glucose POC Glucose 53 L Lactic Acid Calcium Ionized Calcium Phosphorus Magnesium Total Bilirubin AST ALT Alkaline Phosphatase Ammonia Total Creatine Kinase CK-MB (CK-2) CK-MB (CK-2) Rel Index Total Protein Albumin Urine WBC (Auto) 40.0 H Vancomycin Trough Salicylates Acetaminophen Plasma/Serum Alcohol Crossmatch 11/22/19 11/22/19 11/22/19 23:27 23:27 23:27 WBC RBC Hgb Hct MCH RDW Plt Count Lymph % (Auto) Gates % (Auto) Gates # Baso # Seg Neutrophils % Seg Neuts % (Manual) Lymphocytes % (Manual) Monocytes % (Manual) Seg Neutrophils # Seg Neutrophils # Man Lymphocytes # (Manual) Monocytes # (Manual) Eosinophils # (Manual) Basophils # (Manual) PT INR APTT ABG pH ABG pO2 ABG HCO3 ABG O2 Saturation ABG Base Excess ABG Hemoglobin Oxyhemoglobin Sodium Potassium 2.4 L* Chloride 85.1 L Carbon Dioxide 19 L BUN Creatinine 0.5 L Glucose 261 H POC Glucose Lactic Acid Calcium Ionized Calcium Phosphorus Magnesium Total Bilirubin AST 609 H ALT 152 H Alkaline Phosphatase 160 H Ammonia 117.0 H Total Creatine Kinase 139 H CK-MB (CK-2) 8.3 H CK-MB (CK-2) Rel Index 5.9 H Total Protein Albumin 3.6 L Urine WBC (Auto) Vancomycin Trough Salicylates < 0.3 L Acetaminophen Plasma/Serum Alcohol Crossmatch 11/22/19 11/22/19 11/23/19 23:27 23:27 01:10 WBC RBC Hgb Hct MCH RDW Plt Count Lymph % (Auto) Gates % (Auto) Gates # Baso # Seg Neutrophils % Seg Neuts % (Manual) Lymphocytes % (Manual) Monocytes % (Manual) Seg Neutrophils # Seg Neutrophils # Man Lymphocytes # (Manual) Monocytes # (Manual) Eosinophils # (Manual) Basophils # (Manual) PT INR APTT ABG pH 7.273 L ABG pO2 209.7 H ABG HCO3 ABG O2 Saturation 99.2 H ABG Base Excess -3.9 L ABG Hemoglobin 10.6 L Oxyhemoglobin 93.9 L Sodium Potassium Chloride Carbon Dioxide BUN Creatinine Glucose POC Glucose Lactic Acid Calcium Ionized Calcium Phosphorus Magnesium Total Bilirubin AST ALT Alkaline Phosphatase Ammonia Total Creatine Kinase CK-MB (CK-2) CK-MB (CK-2) Rel Index Total Protein Albumin Urine WBC (Auto) Vancomycin Trough Salicylates Acetaminophen < 5.0 L Plasma/Serum Alcohol 0.08 H Crossmatch 11/23/19 11/23/19 11/23/19 01:19 01:19 03:47 WBC RBC Hgb Hct MCH RDW Plt Count Lymph % (Auto) Gates % (Auto) Gates # Baso # Seg Neutrophils % Seg Neuts % (Manual) Lymphocytes % (Manual) Monocytes % (Manual) Seg Neutrophils # Seg Neutrophils # Man Lymphocytes # (Manual) Monocytes # (Manual) Eosinophils # (Manual) Basophils # (Manual) PT 16.3 H INR 1.29 H APTT ABG pH ABG pO2 ABG HCO3 ABG O2 Saturation ABG Base Excess ABG Hemoglobin Oxyhemoglobin Sodium Potassium Chloride Carbon Dioxide BUN Creatinine Glucose POC Glucose Lactic Acid 2.10 H* 5.00 H* Calcium Ionized Calcium Phosphorus Magnesium Total Bilirubin AST ALT Alkaline Phosphatase Ammonia Total Creatine Kinase CK-MB (CK-2) CK-MB (CK-2) Rel Index Total Protein Albumin Urine WBC (Auto) Vancomycin Trough Salicylates Acetaminophen Plasma/Serum Alcohol Crossmatch 11/23/19 11/23/19 11/23/19 03:47 03:47 04:53 WBC RBC Hgb 9.4 L Hct MCH RDW Plt Count Lymph % (Auto) Gates % (Auto) Gates # Baso # Seg Neutrophils % Seg Neuts % (Manual) Lymphocytes % (Manual) Monocytes % (Manual) Seg Neutrophils # Seg Neutrophils # Man Lymphocytes # (Manual) Monocytes # (Manual) Eosinophils # (Manual) Basophils # (Manual) PT 17.0 H INR 1.36 H APTT 128.2 H* ABG pH ABG pO2 ABG HCO3 ABG O2 Saturation ABG Base Excess ABG Hemoglobin Oxyhemoglobin Sodium Potassium Chloride Carbon Dioxide 18 L BUN Creatinine 0.5 L Glucose 105 H POC Glucose Lactic Acid Calcium 8.3 L Ionized Calcium Phosphorus 2.40 L Magnesium Total Bilirubin 1.30 H AST 761 H ALT 158 H Alkaline Phosphatase 143 H Ammonia Total Creatine Kinase CK-MB (CK-2) CK-MB (CK-2) Rel Index Total Protein Albumin 2.8 L Urine WBC (Auto) Vancomycin Trough Salicylates Acetaminophen Plasma/Serum Alcohol Crossmatch 11/23/19 11/23/19 11/23/19 05:12 06:32 06:32 WBC 16.8 H RBC 3.31 L Hgb 8.9 L Hct 28.7 L MCH 27 L RDW 18.6 H Plt Count Lymph % (Auto) Gates % (Auto) Gates # Baso # Seg Neutrophils % Seg Neuts % (Manual) 94.0 H Lymphocytes % (Manual) 1.0 L Monocytes % (Manual) Seg Neutrophils # Seg Neutrophils # Man 15.8 H Lymphocytes # (Manual) 0.2 L Monocytes # (Manual) Eosinophils # (Manual) Basophils # (Manual) PT INR APTT ABG pH ABG pO2 ABG HCO3 ABG O2 Saturation ABG Base Excess -3.2 L ABG Hemoglobin 9.0 L Oxyhemoglobin 93.6 L Sodium Potassium Chloride Carbon Dioxide BUN Creatinine Glucose POC Glucose Lactic Acid Calcium Ionized Calcium 4.5 L Phosphorus Magnesium Total Bilirubin AST ALT Alkaline Phosphatase Ammonia Total Creatine Kinase CK-MB (CK-2) CK-MB (CK-2) Rel Index Total Protein Albumin Urine WBC (Auto) Vancomycin Trough Salicylates Acetaminophen Plasma/Serum Alcohol Crossmatch 11/23/19 11/24/19 11/24/19 06:32 04:35 04:35 WBC RBC Hgb Hct MCH RDW Plt Count Lymph % (Auto) Gates % (Auto) Gates # Baso # Seg Neutrophils % Seg Neuts % (Manual) Lymphocytes % (Manual) Monocytes % (Manual) Seg Neutrophils # Seg Neutrophils # Man Lymphocytes # (Manual) Monocytes # (Manual) Eosinophils # (Manual) Basophils # (Manual) PT INR APTT ABG pH ABG pO2 ABG HCO3 ABG O2 Saturation ABG Base Excess ABG Hemoglobin Oxyhemoglobin Sodium Potassium Chloride Carbon Dioxide BUN Creatinine Glucose POC Glucose Lactic Acid 3.30 H* Calcium Ionized Calcium Phosphorus Magnesium 1.40 L Total Bilirubin AST ALT Alkaline Phosphatase Ammonia 98.0 H Total Creatine Kinase CK-MB (CK-2) CK-MB (CK-2) Rel Index Total Protein Albumin Urine WBC (Auto) Vancomycin Trough Salicylates Acetaminophen Plasma/Serum Alcohol Crossmatch 11/24/19 11/25/19 11/25/19 05:22 04:34 05:05 WBC 17.3 H RBC 2.88 L Hgb 7.8 L Hct 24.6 L MCH 27 L RDW 18.5 H Plt Count Lymph % (Auto) 7.7 L Gates % (Auto) 9.7 H Gates # 1.7 H Baso # Seg Neutrophils % 82.2 H Seg Neuts % (Manual) Lymphocytes % (Manual) Monocytes % (Manual) Seg Neutrophils # 14.2 H Seg Neutrophils # Man Lymphocytes # (Manual) Monocytes # (Manual) Eosinophils # (Manual) Basophils # (Manual) PT INR APTT ABG pH 7.475 H ABG pO2 ABG HCO3 29.4 H 32.3 H ABG O2 Saturation ABG Base Excess 5.4 H 6.9 H ABG Hemoglobin 9.0 L 10.6 L Oxyhemoglobin 94.3 L Sodium Potassium Chloride Carbon Dioxide BUN Creatinine Glucose POC Glucose Lactic Acid Calcium Ionized Calcium Phosphorus Magnesium Total Bilirubin AST ALT Alkaline Phosphatase Ammonia Total Creatine Kinase CK-MB (CK-2) CK-MB (CK-2) Rel Index Total Protein Albumin Urine WBC (Auto) Vancomycin Trough Salicylates Acetaminophen Plasma/Serum Alcohol Crossmatch 11/25/19 11/25/19 11/26/19 05:05 22:46 03:31 WBC RBC Hgb Hct MCH RDW Plt Count Lymph % (Auto) Gates % (Auto) Gates # Baso # Seg Neutrophils % Seg Neuts % (Manual) Lymphocytes % (Manual) Monocytes % (Manual) Seg Neutrophils # Seg Neutrophils # Man Lymphocytes # (Manual) Monocytes # (Manual) Eosinophils # (Manual) Basophils # (Manual) PT INR APTT ABG pH 7.459 H ABG pO2 ABG HCO3 34.2 H ABG O2 Saturation ABG Base Excess 9.4 H ABG Hemoglobin 7.6 L Oxyhemoglobin 94.8 L Sodium 152 H D 147 H Potassium 2.3 L* D 2.8 L* D Chloride 107.8 H Carbon Dioxide 31 H D 33 H BUN Creatinine 0.6 L 0.6 L Glucose 148 H 177 H POC Glucose Lactic Acid Calcium Ionized Calcium Phosphorus Magnesium Total Bilirubin AST 105 H ALT 71 H Alkaline Phosphatase 155 H Ammonia Total Creatine Kinase CK-MB (CK-2) CK-MB (CK-2) Rel Index Total Protein 5.2 L D Albumin 2.9 L Urine WBC (Auto) Vancomycin Trough Salicylates Acetaminophen Plasma/Serum Alcohol Crossmatch 11/26/19 11/26/19 11/27/19 08:24 08:24 04:20 WBC 12.0 H RBC 3.00 L Hgb 8.0 L 9.3 L Hct 25.9 L 29.7 L MCH 27 L RDW 18.5 H Plt Count Lymph % (Auto) Gates % (Auto) Gates # Baso # Seg Neutrophils % Seg Neuts % (Manual) 89.0 H Lymphocytes % (Manual) 4.0 L Monocytes % (Manual) Seg Neutrophils # Seg Neutrophils # Man 10.7 H Lymphocytes # (Manual) 0.5 L Monocytes # (Manual) Eosinophils # (Manual) Basophils # (Manual) PT INR APTT ABG pH ABG pO2 ABG HCO3 ABG O2 Saturation ABG Base Excess ABG Hemoglobin Oxyhemoglobin Sodium 146 H Potassium 3.4 L D Chloride Carbon Dioxide BUN Creatinine 0.5 L Glucose 165 H POC Glucose Lactic Acid Calcium Ionized Calcium Phosphorus Magnesium Total Bilirubin AST 57 H ALT Alkaline Phosphatase 166 H Ammonia Total Creatine Kinase CK-MB (CK-2) CK-MB (CK-2) Rel Index Total Protein Albumin 2.9 L Urine WBC (Auto) Vancomycin Trough Salicylates Acetaminophen Plasma/Serum Alcohol Crossmatch 11/27/19 11/27/19 11/27/19 04:28 04:28 04:42 WBC RBC Hgb Hct MCH RDW Plt Count Lymph % (Auto) Gates % (Auto) Gates # Baso # Seg Neutrophils % Seg Neuts % (Manual) Lymphocytes % (Manual) Monocytes % (Manual) Seg Neutrophils # Seg Neutrophils # Man Lymphocytes # (Manual) Monocytes # (Manual) Eosinophils # (Manual) Basophils # (Manual) PT INR APTT ABG pH 7.470 H ABG pO2 74.0 L ABG HCO3 33.8 H ABG O2 Saturation ABG Base Excess 9.1 H ABG Hemoglobin 8.7 L Oxyhemoglobin 94.7 L Sodium 146 H Potassium 2.9 L* Chloride Carbon Dioxide BUN 25 H Creatinine Glucose 213 H POC Glucose Lactic Acid Calcium Ionized Calcium Phosphorus 1.00 L Magnesium Total Bilirubin AST ALT Alkaline Phosphatase Ammonia Total Creatine Kinase CK-MB (CK-2) CK-MB (CK-2) Rel Index Total Protein Albumin Urine WBC (Auto) Vancomycin Trough Salicylates Acetaminophen Plasma/Serum Alcohol Crossmatch 11/27/19 11/27/19 11/27/19 05:37 12:20 15:46 WBC RBC Hgb Hct MCH RDW Plt Count Lymph % (Auto) Gates % (Auto) Gates # Baso # Seg Neutrophils % Seg Neuts % (Manual) Lymphocytes % (Manual) Monocytes % (Manual) Seg Neutrophils # Seg Neutrophils # Man Lymphocytes # (Manual) Monocytes # (Manual) Eosinophils # (Manual) Basophils # (Manual) PT INR APTT ABG pH ABG pO2 ABG HCO3 ABG O2 Saturation ABG Base Excess ABG Hemoglobin Oxyhemoglobin Sodium 146 H Potassium 3.5 L D Chloride Carbon Dioxide BUN 24 H Creatinine 0.6 L Glucose 187 H POC Glucose 117 H 220 H Lactic Acid Calcium Ionized Calcium Phosphorus Magnesium Total Bilirubin AST ALT Alkaline Phosphatase Ammonia Total Creatine Kinase CK-MB (CK-2) CK-MB (CK-2) Rel Index Total Protein Albumin Urine WBC (Auto) Vancomycin Trough Salicylates Acetaminophen Plasma/Serum Alcohol Crossmatch 11/27/19 11/28/19 11/28/19 17:28 05:00 05:02 WBC RBC Hgb Hct MCH RDW Plt Count Lymph % (Auto) Gates % (Auto) Gates # Baso # Seg Neutrophils % Seg Neuts % (Manual) Lymphocytes % (Manual) Monocytes % (Manual) Seg Neutrophils # Seg Neutrophils # Man Lymphocytes # (Manual) Monocytes # (Manual) Eosinophils # (Manual) Basophils # (Manual) PT INR APTT ABG pH ABG pO2 72.4 L ABG HCO3 33.6 H ABG O2 Saturation 94.1 L ABG Base Excess 7.3 H ABG Hemoglobin Oxyhemoglobin 91.8 L Sodium 146 H Potassium 3.3 L Chloride Carbon Dioxide BUN 25 H Creatinine 0.6 L Glucose 176 H POC Glucose 198 H Lactic Acid Calcium Ionized Calcium Phosphorus Magnesium Total Bilirubin AST ALT Alkaline Phosphatase Ammonia Total Creatine Kinase CK-MB (CK-2) CK-MB (CK-2) Rel Index Total Protein Albumin Urine WBC (Auto) Vancomycin Trough Salicylates Acetaminophen Plasma/Serum Alcohol Crossmatch 11/28/19 11/28/19 11/29/19 05:02 18:55 10:43 WBC 15.2 H 19.0 H RBC 3.06 L 3.01 L Hgb 8.3 L 8.3 L Hct 27.0 L 26.4 L MCH 27 L RDW 19.0 H 19.7 H Plt Count 479 H 611 H Lymph % (Auto) Gates % (Auto) Gates # Baso # Seg Neutrophils % Seg Neuts % (Manual) 92.0 H Lymphocytes % (Manual) 2.0 L Monocytes % (Manual) Seg Neutrophils # Seg Neutrophils # Man 14.0 H Lymphocytes # (Manual) 0.3 L Monocytes # (Manual) Eosinophils # (Manual) Basophils # (Manual) PT INR APTT ABG pH ABG pO2 ABG HCO3 ABG O2 Saturation ABG Base Excess ABG Hemoglobin Oxyhemoglobin Sodium Potassium Chloride Carbon Dioxide BUN Creatinine Glucose POC Glucose 138 H Lactic Acid Calcium Ionized Calcium Phosphorus Magnesium Total Bilirubin AST ALT Alkaline Phosphatase Ammonia Total Creatine Kinase CK-MB (CK-2) CK-MB (CK-2) Rel Index Total Protein Albumin Urine WBC (Auto) Vancomycin Trough Salicylates Acetaminophen Plasma/Serum Alcohol Crossmatch 11/29/19 11/29/19 11/29/19 10:43 12:27 19:25 WBC RBC Hgb Hct MCH RDW Plt Count Lymph % (Auto) Gates % (Auto) Gates # Baso # Seg Neutrophils % Seg Neuts % (Manual) Lymphocytes % (Manual) Monocytes % (Manual) Seg Neutrophils # Seg Neutrophils # Man Lymphocytes # (Manual) Monocytes # (Manual) Eosinophils # (Manual) Basophils # (Manual) PT INR APTT ABG pH ABG pO2 ABG HCO3 ABG O2 Saturation ABG Base Excess ABG Hemoglobin Oxyhemoglobin Sodium Potassium 2.8 L* Chloride Carbon Dioxide BUN 20 H Creatinine 0.5 L Glucose 121 H POC Glucose 128 H 120 H Lactic Acid Calcium Ionized Calcium Phosphorus Magnesium Total Bilirubin AST ALT Alkaline Phosphatase Ammonia Total Creatine Kinase CK-MB (CK-2) CK-MB (CK-2) Rel Index Total Protein Albumin Urine WBC (Auto) Vancomycin Trough Salicylates Acetaminophen Plasma/Serum Alcohol Crossmatch 11/29/19 11/30/19 11/30/19 23:46 04:10 05:02 WBC RBC Hgb Hct MCH RDW Plt Count Lymph % (Auto) Gates % (Auto) Gates # Baso # Seg Neutrophils % Seg Neuts % (Manual) Lymphocytes % (Manual) Monocytes % (Manual) Seg Neutrophils # Seg Neutrophils # Man Lymphocytes # (Manual) Monocytes # (Manual) Eosinophils # (Manual) Basophils # (Manual) PT INR APTT ABG pH ABG pO2 76.3 L ABG HCO3 32.5 H ABG O2 Saturation ABG Base Excess 6.9 H ABG Hemoglobin 8.0 L Oxyhemoglobin 92.6 L Sodium Potassium Chloride Carbon Dioxide BUN Creatinine Glucose POC Glucose 116 H 128 H Lactic Acid Calcium Ionized Calcium Phosphorus Magnesium Total Bilirubin AST ALT Alkaline Phosphatase Ammonia Total Creatine Kinase CK-MB (CK-2) CK-MB (CK-2) Rel Index Total Protein Albumin Urine WBC (Auto) Vancomycin Trough Salicylates Acetaminophen Plasma/Serum Alcohol Crossmatch 11/30/19 11/30/19 11/30/19 05:25 05:25 12:59 WBC 18.4 H RBC 3.10 L Hgb 8.5 L Hct 27.5 L MCH 27 L RDW 20.9 H Plt Count 691 H Lymph % (Auto) 7.1 L Gates % (Auto) 7.7 H Gates # 1.4 H Baso # Seg Neutrophils % 83.4 H Seg Neuts % (Manual) Lymphocytes % (Manual) Monocytes % (Manual) Seg Neutrophils # 15.4 H Seg Neutrophils # Man Lymphocytes # (Manual) Monocytes # (Manual) Eosinophils # (Manual) Basophils # (Manual) PT INR APTT ABG pH ABG pO2 ABG HCO3 ABG O2 Saturation ABG Base Excess ABG Hemoglobin Oxyhemoglobin Sodium 146 H Potassium Chloride 107.2 H Carbon Dioxide BUN Creatinine 0.5 L Glucose 132 H POC Glucose 124 H Lactic Acid Calcium Ionized Calcium Phosphorus Magnesium Total Bilirubin AST 246 H ALT 274 H Alkaline Phosphatase 203 H Ammonia Total Creatine Kinase CK-MB (CK-2) CK-MB (CK-2) Rel Index Total Protein 5.4 L Albumin 2.9 L Urine WBC (Auto) Vancomycin Trough Salicylates Acetaminophen Plasma/Serum Alcohol Crossmatch 11/30/19 12/01/19 12/01/19 17:53 00:05 05:10 WBC RBC Hgb Hct MCH RDW Plt Count Lymph % (Auto) Gates % (Auto) Gates # Baso # Seg Neutrophils % Seg Neuts % (Manual) Lymphocytes % (Manual) Monocytes % (Manual) Seg Neutrophils # Seg Neutrophils # Man Lymphocytes # (Manual) Monocytes # (Manual) Eosinophils # (Manual) Basophils # (Manual) PT INR APTT ABG pH ABG pO2 ABG HCO3 ABG O2 Saturation ABG Base Excess ABG Hemoglobin Oxyhemoglobin Sodium Potassium Chloride Carbon Dioxide BUN Creatinine Glucose POC Glucose 113 H 143 H 145 H Lactic Acid Calcium Ionized Calcium Phosphorus Magnesium Total Bilirubin AST ALT Alkaline Phosphatase Ammonia Total Creatine Kinase CK-MB (CK-2) CK-MB (CK-2) Rel Index Total Protein Albumin Urine WBC (Auto) Vancomycin Trough Salicylates Acetaminophen Plasma/Serum Alcohol Crossmatch 12/01/19 12/01/19 12/01/19 05:33 08:23 08:23 WBC 22.7 H RBC 2.88 L Hgb 7.9 L Hct 25.2 L MCH 27 L RDW 21.0 H Plt Count 732 H Lymph % (Auto) Gates % (Auto) Gates # Baso # Seg Neutrophils % Seg Neuts % (Manual) 91.0 H Lymphocytes % (Manual) 3.0 L Monocytes % (Manual) Seg Neutrophils # Seg Neutrophils # Man 20.7 H Lymphocytes # (Manual) 0.7 L Monocytes # (Manual) 1.1 H Eosinophils # (Manual) Basophils # (Manual) PT INR APTT ABG pH ABG pO2 68.6 L ABG HCO3 34.1 H ABG O2 Saturation ABG Base Excess 9.0 H ABG Hemoglobin 6.5 L Oxyhemoglobin 94.7 L Sodium Potassium Chloride Carbon Dioxide BUN Creatinine 0.5 L Glucose 125 H POC Glucose Lactic Acid Calcium Ionized Calcium Phosphorus Magnesium Total Bilirubin AST ALT Alkaline Phosphatase Ammonia Total Creatine Kinase CK-MB (CK-2) CK-MB (CK-2) Rel Index Total Protein Albumin Urine WBC (Auto) Vancomycin Trough Salicylates Acetaminophen Plasma/Serum Alcohol Crossmatch 12/01/19 12/01/19 12/01/19 13:21 17:54 20:59 WBC RBC Hgb Hct MCH RDW Plt Count Lymph % (Auto) Gates % (Auto) Gates # Baso # Seg Neutrophils % Seg Neuts % (Manual) Lymphocytes % (Manual) Monocytes % (Manual) Seg Neutrophils # Seg Neutrophils # Man Lymphocytes # (Manual) Monocytes # (Manual) Eosinophils # (Manual) Basophils # (Manual) PT INR APTT ABG pH ABG pO2 78.3 L ABG HCO3 33.8 H ABG O2 Saturation 94.9 L ABG Base Excess 7.9 H ABG Hemoglobin 11.5 L Oxyhemoglobin 92.3 L Sodium Potassium Chloride Carbon Dioxide BUN Creatinine Glucose POC Glucose 111 H 115 H Lactic Acid Calcium Ionized Calcium Phosphorus Magnesium Total Bilirubin AST ALT Alkaline Phosphatase Ammonia Total Creatine Kinase CK-MB (CK-2) CK-MB (CK-2) Rel Index Total Protein Albumin Urine WBC (Auto) Vancomycin Trough Salicylates Acetaminophen Plasma/Serum Alcohol Crossmatch 12/02/19 12/03/19 12/04/19 12:55 20:00 04:26 WBC 15.2 H RBC 2.69 L Hgb 7.4 L Hct 23.6 L MCH 27 L RDW 19.9 H Plt Count 838 H Lymph % (Auto) Gates % (Auto) Gates # Baso # Seg Neutrophils % Seg Neuts % (Manual) Lymphocytes % (Manual) Monocytes % (Manual) Seg Neutrophils # Seg Neutrophils # Man Lymphocytes # (Manual) Monocytes # (Manual) Eosinophils # (Manual) Basophils # (Manual) PT INR APTT ABG pH ABG pO2 68.3 L ABG HCO3 33.5 H ABG O2 Saturation 93.5 L ABG Base Excess 8.4 H ABG Hemoglobin 7.3 L Oxyhemoglobin 90.9 L Sodium Potassium Chloride Carbon Dioxide BUN Creatinine Glucose POC Glucose 107 H Lactic Acid Calcium Ionized Calcium Phosphorus Magnesium Total Bilirubin AST ALT Alkaline Phosphatase Ammonia Total Creatine Kinase CK-MB (CK-2) CK-MB (CK-2) Rel Index Total Protein Albumin Urine WBC (Auto) Vancomycin Trough Salicylates Acetaminophen Plasma/Serum Alcohol Crossmatch 12/04/19 12/04/19 12/04/19 04:26 07:45 12:02 WBC 15.9 H RBC 2.88 L Hgb 7.9 L Hct 25.1 L MCH RDW 20.4 H Plt Count 839 H Lymph % (Auto) 11.3 L Gates % (Auto) 15.2 H Gates # 2.4 H Baso # Seg Neutrophils % 72.4 H Seg Neuts % (Manual) Lymphocytes % (Manual) Monocytes % (Manual) Seg Neutrophils # 11.5 H Seg Neutrophils # Man Lymphocytes # (Manual) Monocytes # (Manual) Eosinophils # (Manual) Basophils # (Manual) PT INR APTT ABG pH ABG pO2 ABG HCO3 ABG O2 Saturation ABG Base Excess ABG Hemoglobin Oxyhemoglobin Sodium Potassium Chloride 96.5 L Carbon Dioxide BUN 21 H Creatinine 0.6 L Glucose 107 H POC Glucose 138 H Lactic Acid Calcium Ionized Calcium Phosphorus Magnesium Total Bilirubin AST ALT Alkaline Phosphatase Ammonia Total Creatine Kinase CK-MB (CK-2) CK-MB (CK-2) Rel Index Total Protein Albumin Urine WBC (Auto) Vancomycin Trough Salicylates Acetaminophen Plasma/Serum Alcohol Crossmatch 12/04/19 12/05/19 12/05/19 18:16 11:55 18:36 WBC RBC Hgb Hct MCH RDW Plt Count Lymph % (Auto) Gates % (Auto) Gates # Baso # Seg Neutrophils % Seg Neuts % (Manual) Lymphocytes % (Manual) Monocytes % (Manual) Seg Neutrophils # Seg Neutrophils # Man Lymphocytes # (Manual) Monocytes # (Manual) Eosinophils # (Manual) Basophils # (Manual) PT INR APTT ABG pH ABG pO2 ABG HCO3 ABG O2 Saturation ABG Base Excess ABG Hemoglobin Oxyhemoglobin Sodium Potassium Chloride Carbon Dioxide BUN Creatinine Glucose POC Glucose 135 H 125 H 135 H Lactic Acid Calcium Ionized Calcium Phosphorus Magnesium Total Bilirubin AST ALT Alkaline Phosphatase Ammonia Total Creatine Kinase CK-MB (CK-2) CK-MB (CK-2) Rel Index Total Protein Albumin Urine WBC (Auto) Vancomycin Trough Salicylates Acetaminophen Plasma/Serum Alcohol Crossmatch 12/05/19 12/06/19 12/06/19 23:30 04:14 05:43 WBC RBC Hgb Hct MCH RDW Plt Count Lymph % (Auto) Gates % (Auto) Gates # Baso # Seg Neutrophils % Seg Neuts % (Manual) Lymphocytes % (Manual) Monocytes % (Manual) Seg Neutrophils # Seg Neutrophils # Man Lymphocytes # (Manual) Monocytes # (Manual) Eosinophils # (Manual) Basophils # (Manual) PT INR APTT ABG pH ABG pO2 ABG HCO3 ABG O2 Saturation ABG Base Excess ABG Hemoglobin Oxyhemoglobin Sodium Potassium 5.6 H Chloride 95.0 L Carbon Dioxide BUN 48 H Creatinine 1.3 H D Glucose POC Glucose 126 H 121 H Lactic Acid Calcium Ionized Calcium Phosphorus Magnesium Total Bilirubin AST 89 H ALT 98 H Alkaline Phosphatase 476 H Ammonia Total Creatine Kinase CK-MB (CK-2) CK-MB (CK-2) Rel Index Total Protein Albumin 2.8 L Urine WBC (Auto) Vancomycin Trough Salicylates Acetaminophen Plasma/Serum Alcohol Crossmatch 12/06/19 12/06/19 12/07/19 10:39 14:34 00:19 WBC 17.3 H RBC 2.60 L Hgb 7.1 L Hct 22.7 L MCH 27 L RDW 20.1 H Plt Count 832 H Lymph % (Auto) Gates % (Auto) Gates # Baso # Seg Neutrophils % Seg Neuts % (Manual) Lymphocytes % (Manual) Monocytes % (Manual) Seg Neutrophils # Seg Neutrophils # Man Lymphocytes # (Manual) Monocytes # (Manual) Eosinophils # (Manual) Basophils # (Manual) PT INR APTT ABG pH ABG pO2 ABG HCO3 ABG O2 Saturation ABG Base Excess ABG Hemoglobin Oxyhemoglobin Sodium Potassium Chloride Carbon Dioxide BUN Creatinine Glucose POC Glucose 128 H 136 H Lactic Acid Calcium Ionized Calcium Phosphorus Magnesium Total Bilirubin AST ALT Alkaline Phosphatase Ammonia Total Creatine Kinase CK-MB (CK-2) CK-MB (CK-2) Rel Index Total Protein Albumin Urine WBC (Auto) Vancomycin Trough Salicylates Acetaminophen Plasma/Serum Alcohol Crossmatch 12/07/19 12/07/19 12/07/19 03:44 03:44 05:53 WBC 16.2 H RBC 2.56 L Hgb 7.1 L Hct 22.3 L MCH RDW 19.4 H Plt Count 782 H Lymph % (Auto) Gates % (Auto) Gates # Baso # Seg Neutrophils % Seg Neuts % (Manual) Lymphocytes % (Manual) Monocytes % (Manual) Seg Neutrophils # Seg Neutrophils # Man Lymphocytes # (Manual) Monocytes # (Manual) Eosinophils # (Manual) Basophils # (Manual) PT INR APTT ABG pH ABG pO2 ABG HCO3 ABG O2 Saturation ABG Base Excess ABG Hemoglobin Oxyhemoglobin Sodium Potassium Chloride 95.6 L Carbon Dioxide BUN 56 H Creatinine 1.4 H Glucose 120 H POC Glucose 128 H Lactic Acid Calcium 10.3 H Ionized Calcium Phosphorus Magnesium Total Bilirubin AST ALT Alkaline Phosphatase Ammonia Total Creatine Kinase CK-MB (CK-2) CK-MB (CK-2) Rel Index Total Protein Albumin Urine WBC (Auto) Vancomycin Trough Salicylates Acetaminophen Plasma/Serum Alcohol Crossmatch 12/07/19 12/07/19 12/08/19 12:54 23:47 00:20 WBC RBC Hgb Hct MCH RDW Plt Count Lymph % (Auto) Gates % (Auto) Gates # Baso # Seg Neutrophils % Seg Neuts % (Manual) Lymphocytes % (Manual) Monocytes % (Manual) Seg Neutrophils # Seg Neutrophils # Man Lymphocytes # (Manual) Monocytes # (Manual) Eosinophils # (Manual) Basophils # (Manual) PT INR APTT ABG pH ABG pO2 ABG HCO3 ABG O2 Saturation ABG Base Excess ABG Hemoglobin Oxyhemoglobin Sodium Potassium Chloride Carbon Dioxide BUN Creatinine Glucose POC Glucose 128 H 130 H 124 H Lactic Acid Calcium Ionized Calcium Phosphorus Magnesium Total Bilirubin AST ALT Alkaline Phosphatase Ammonia Total Creatine Kinase CK-MB (CK-2) CK-MB (CK-2) Rel Index Total Protein Albumin Urine WBC (Auto) Vancomycin Trough Salicylates Acetaminophen Plasma/Serum Alcohol Crossmatch 12/08/19 12/08/19 12/08/19 06:38 12:04 18:26 WBC RBC Hgb Hct MCH RDW Plt Count Lymph % (Auto) Gates % (Auto) Gates # Baso # Seg Neutrophils % Seg Neuts % (Manual) Lymphocytes % (Manual) Monocytes % (Manual) Seg Neutrophils # Seg Neutrophils # Man Lymphocytes # (Manual) Monocytes # (Manual) Eosinophils # (Manual) Basophils # (Manual) PT INR APTT ABG pH ABG pO2 ABG HCO3 ABG O2 Saturation ABG Base Excess ABG Hemoglobin Oxyhemoglobin Sodium Potassium Chloride Carbon Dioxide BUN Creatinine Glucose POC Glucose 137 H 129 H 150 H Lactic Acid Calcium Ionized Calcium Phosphorus Magnesium Total Bilirubin AST ALT Alkaline Phosphatase Ammonia Total Creatine Kinase CK-MB (CK-2) CK-MB (CK-2) Rel Index Total Protein Albumin Urine WBC (Auto) Vancomycin Trough Salicylates Acetaminophen Plasma/Serum Alcohol Crossmatch 12/09/19 12/09/19 12/09/19 00:56 05:34 06:13 WBC RBC Hgb Hct MCH RDW Plt Count Lymph % (Auto) Gates % (Auto) Gates # Baso # Seg Neutrophils % Seg Neuts % (Manual) Lymphocytes % (Manual) Monocytes % (Manual) Seg Neutrophils # Seg Neutrophils # Man Lymphocytes # (Manual) Monocytes # (Manual) Eosinophils # (Manual) Basophils # (Manual) PT INR APTT ABG pH ABG pO2 ABG HCO3 ABG O2 Saturation ABG Base Excess ABG Hemoglobin Oxyhemoglobin Sodium 146 H Potassium Chloride Carbon Dioxide BUN 66 H Creatinine 1.9 H Glucose 116 H POC Glucose 130 H 130 H Lactic Acid Calcium Ionized Calcium Phosphorus Magnesium Total Bilirubin AST ALT Alkaline Phosphatase Ammonia Total Creatine Kinase CK-MB (CK-2) CK-MB (CK-2) Rel Index Total Protein Albumin Urine WBC (Auto) Vancomycin Trough Salicylates Acetaminophen Plasma/Serum Alcohol Crossmatch 12/09/19 12/09/19 12/10/19 11:52 17:50 00:14 WBC RBC Hgb Hct MCH RDW Plt Count Lymph % (Auto) Gates % (Auto) Gates # Baso # Seg Neutrophils % Seg Neuts % (Manual) Lymphocytes % (Manual) Monocytes % (Manual) Seg Neutrophils # Seg Neutrophils # Man Lymphocytes # (Manual) Monocytes # (Manual) Eosinophils # (Manual) Basophils # (Manual) PT INR APTT ABG pH ABG pO2 ABG HCO3 ABG O2 Saturation ABG Base Excess ABG Hemoglobin Oxyhemoglobin Sodium Potassium Chloride Carbon Dioxide BUN Creatinine Glucose POC Glucose 135 H 120 H 116 H Lactic Acid Calcium Ionized Calcium Phosphorus Magnesium Total Bilirubin AST ALT Alkaline Phosphatase Ammonia Total Creatine Kinase CK-MB (CK-2) CK-MB (CK-2) Rel Index Total Protein Albumin Urine WBC (Auto) Vancomycin Trough Salicylates Acetaminophen Plasma/Serum Alcohol Crossmatch 12/10/19 12/10/19 12/10/19 05:38 11:38 17:34 WBC RBC Hgb Hct MCH RDW Plt Count Lymph % (Auto) Gates % (Auto) Gates # Baso # Seg Neutrophils % Seg Neuts % (Manual) Lymphocytes % (Manual) Monocytes % (Manual) Seg Neutrophils # Seg Neutrophils # Man Lymphocytes # (Manual) Monocytes # (Manual) Eosinophils # (Manual) Basophils # (Manual) PT INR APTT ABG pH ABG pO2 ABG HCO3 ABG O2 Saturation ABG Base Excess ABG Hemoglobin Oxyhemoglobin Sodium Potassium Chloride Carbon Dioxide BUN Creatinine Glucose POC Glucose 115 H 112 H 130 H Lactic Acid Calcium Ionized Calcium Phosphorus Magnesium Total Bilirubin AST ALT Alkaline Phosphatase Ammonia Total Creatine Kinase CK-MB (CK-2) CK-MB (CK-2) Rel Index Total Protein Albumin Urine WBC (Auto) Vancomycin Trough Salicylates Acetaminophen Plasma/Serum Alcohol Crossmatch 12/11/19 12/11/19 12/11/19 00:20 05:31 12:22 WBC RBC Hgb Hct MCH RDW Plt Count Lymph % (Auto) Gates % (Auto) Gates # Baso # Seg Neutrophils % Seg Neuts % (Manual) Lymphocytes % (Manual) Monocytes % (Manual) Seg Neutrophils # Seg Neutrophils # Man Lymphocytes # (Manual) Monocytes # (Manual) Eosinophils # (Manual) Basophils # (Manual) PT INR APTT ABG pH ABG pO2 ABG HCO3 ABG O2 Saturation ABG Base Excess ABG Hemoglobin Oxyhemoglobin Sodium Potassium Chloride Carbon Dioxide BUN Creatinine Glucose POC Glucose 124 H 132 H 128 H Lactic Acid Calcium Ionized Calcium Phosphorus Magnesium Total Bilirubin AST ALT Alkaline Phosphatase Ammonia Total Creatine Kinase CK-MB (CK-2) CK-MB (CK-2) Rel Index Total Protein Albumin Urine WBC (Auto) Vancomycin Trough Salicylates Acetaminophen Plasma/Serum Alcohol Crossmatch 12/11/19 12/11/19 12/12/19 18:04 23:42 03:51 WBC RBC Hgb Hct MCH RDW Plt Count Lymph % (Auto) Gates % (Auto) Gates # Baso # Seg Neutrophils % Seg Neuts % (Manual) Lymphocytes % (Manual) Monocytes % (Manual) Seg Neutrophils # Seg Neutrophils # Man Lymphocytes # (Manual) Monocytes # (Manual) Eosinophils # (Manual) Basophils # (Manual) PT INR APTT ABG pH ABG pO2 ABG HCO3 ABG O2 Saturation ABG Base Excess ABG Hemoglobin Oxyhemoglobin Sodium 149 H Potassium Chloride Carbon Dioxide 20 L D BUN 77 H Creatinine 2.8 H Glucose POC Glucose 133 H 154 H Lactic Acid Calcium Ionized Calcium Phosphorus Magnesium Total Bilirubin AST ALT Alkaline Phosphatase Ammonia Total Creatine Kinase CK-MB (CK-2) CK-MB (CK-2) Rel Index Total Protein Albumin Urine WBC (Auto) Vancomycin Trough Salicylates Acetaminophen Plasma/Serum Alcohol Crossmatch 12/12/19 12/12/19 12/12/19 05:18 05:26 10:30 WBC 18.0 H RBC 2.51 L Hgb 6.8 L Hct 22.0 L MCH 27 L RDW 19.9 H Plt Count 582 H Lymph % (Auto) Gates % (Auto) Gates # Baso # Seg Neutrophils % Seg Neuts % (Manual) Lymphocytes % (Manual) Monocytes % (Manual) Seg Neutrophils # Seg Neutrophils # Man Lymphocytes # (Manual) Monocytes # (Manual) Eosinophils # (Manual) Basophils # (Manual) PT INR APTT ABG pH ABG pO2 ABG HCO3 ABG O2 Saturation ABG Base Excess ABG Hemoglobin Oxyhemoglobin Sodium Potassium Chloride Carbon Dioxide BUN Creatinine Glucose POC Glucose 135 H Lactic Acid Calcium Ionized Calcium Phosphorus Magnesium Total Bilirubin AST ALT Alkaline Phosphatase Ammonia Total Creatine Kinase CK-MB (CK-2) CK-MB (CK-2) Rel Index Total Protein Albumin Urine WBC (Auto) Vancomycin Trough Salicylates Acetaminophen Plasma/Serum Alcohol Crossmatch See Detail 12/12/19 12/12/19 12/12/19 11:44 18:10 23:21 WBC RBC Hgb Hct MCH RDW Plt Count Lymph % (Auto) Gates % (Auto) Gates # Baso # Seg Neutrophils % Seg Neuts % (Manual) Lymphocytes % (Manual) Monocytes % (Manual) Seg Neutrophils # Seg Neutrophils # Man Lymphocytes # (Manual) Monocytes # (Manual) Eosinophils # (Manual) Basophils # (Manual) PT INR APTT ABG pH ABG pO2 ABG HCO3 ABG O2 Saturation ABG Base Excess ABG Hemoglobin Oxyhemoglobin Sodium Potassium Chloride Carbon Dioxide BUN Creatinine Glucose POC Glucose 108 H 107 H 126 H Lactic Acid Calcium Ionized Calcium Phosphorus Magnesium Total Bilirubin AST ALT Alkaline Phosphatase Ammonia Total Creatine Kinase CK-MB (CK-2) CK-MB (CK-2) Rel Index Total Protein Albumin Urine WBC (Auto) Vancomycin Trough Salicylates Acetaminophen Plasma/Serum Alcohol Crossmatch 12/13/19 12/13/19 12/13/19 05:41 07:48 07:48 WBC 38.3 H RBC 2.37 L Hgb 6.3 L Hct 20.9 L MCH 27 L RDW 20.2 H Plt Count 546 H Lymph % (Auto) Gates % (Auto) Gates # Baso # Seg Neutrophils % Seg Neuts % (Manual) 93.0 H Lymphocytes % (Manual) 1.0 L Monocytes % (Manual) Seg Neutrophils # Seg Neutrophils # Man 35.6 H Lymphocytes # (Manual) 0.4 L Monocytes # (Manual) Eosinophils # (Manual) Basophils # (Manual) 0.4 H PT INR APTT ABG pH ABG pO2 ABG HCO3 ABG O2 Saturation ABG Base Excess ABG Hemoglobin Oxyhemoglobin Sodium 152 H Potassium 3.1 L D Chloride 111.9 H Carbon Dioxide 21 L BUN 53 H Creatinine 1.9 H Glucose 141 H POC Glucose 128 H Lactic Acid Calcium Ionized Calcium Phosphorus Magnesium Total Bilirubin AST ALT Alkaline Phosphatase 316 H Ammonia Total Creatine Kinase CK-MB (CK-2) CK-MB (CK-2) Rel Index Total Protein Albumin 2.4 L Urine WBC (Auto) Vancomycin Trough Salicylates Acetaminophen Plasma/Serum Alcohol Crossmatch 12/13/19 12/13/19 12/14/19 18:17 23:19 05:36 WBC RBC Hgb Hct MCH RDW Plt Count Lymph % (Auto) Gates % (Auto) Gates # Baso # Seg Neutrophils % Seg Neuts % (Manual) Lymphocytes % (Manual) Monocytes % (Manual) Seg Neutrophils # Seg Neutrophils # Man Lymphocytes # (Manual) Monocytes # (Manual) Eosinophils # (Manual) Basophils # (Manual) PT INR APTT ABG pH ABG pO2 ABG HCO3 ABG O2 Saturation ABG Base Excess ABG Hemoglobin Oxyhemoglobin Sodium Potassium Chloride Carbon Dioxide BUN Creatinine Glucose POC Glucose 141 H 158 H 182 H Lactic Acid Calcium Ionized Calcium Phosphorus Magnesium Total Bilirubin AST ALT Alkaline Phosphatase Ammonia Total Creatine Kinase CK-MB (CK-2) CK-MB (CK-2) Rel Index Total Protein Albumin Urine WBC (Auto) Vancomycin Trough Salicylates Acetaminophen Plasma/Serum Alcohol Crossmatch 12/14/19 12/14/19 12/14/19 08:48 08:48 10:31 WBC 33.3 H RBC 2.70 L Hgb 7.9 L 8.0 L Hct 25.3 L 24.0 L MCH RDW 19.2 H Plt Count 476 H Lymph % (Auto) Gates % (Auto) Gates # Baso # Seg Neutrophils % Seg Neuts % (Manual) Lymphocytes % (Manual) Monocytes % (Manual) Seg Neutrophils # Seg Neutrophils # Man Lymphocytes # (Manual) Monocytes # (Manual) Eosinophils # (Manual) Basophils # (Manual) PT INR APTT ABG pH ABG pO2 ABG HCO3 ABG O2 Saturation ABG Base Excess ABG Hemoglobin Oxyhemoglobin Sodium 153 H Potassium 2.5 L* Chloride 114.9 H Carbon Dioxide 20 L BUN 38 H Creatinine 1.4 H Glucose 177 H POC Glucose Lactic Acid Calcium Ionized Calcium Phosphorus Magnesium Total Bilirubin AST ALT Alkaline Phosphatase Ammonia Total Creatine Kinase CK-MB (CK-2) CK-MB (CK-2) Rel Index Total Protein Albumin Urine WBC (Auto) Vancomycin Trough Salicylates Acetaminophen Plasma/Serum Alcohol Crossmatch 12/14/19 12/14/19 12/14/19 12:57 16:15 17:50 WBC RBC Hgb Hct MCH RDW Plt Count Lymph % (Auto) Gates % (Auto) Gates # Baso # Seg Neutrophils % Seg Neuts % (Manual) Lymphocytes % (Manual) Monocytes % (Manual) Seg Neutrophils # Seg Neutrophils # Man Lymphocytes # (Manual) Monocytes # (Manual) Eosinophils # (Manual) Basophils # (Manual) PT INR APTT ABG pH ABG pO2 73.6 L ABG HCO3 ABG O2 Saturation ABG Base Excess ABG Hemoglobin 7.6 L Oxyhemoglobin 94.0 L Sodium Potassium Chloride Carbon Dioxide BUN Creatinine Glucose POC Glucose 174 H 150 H Lactic Acid Calcium Ionized Calcium Phosphorus Magnesium Total Bilirubin AST ALT Alkaline Phosphatase Ammonia Total Creatine Kinase CK-MB (CK-2) CK-MB (CK-2) Rel Index Total Protein Albumin Urine WBC (Auto) Vancomycin Trough Salicylates Acetaminophen Plasma/Serum Alcohol Crossmatch 12/15/19 12/15/19 12/15/19 00:28 05:27 07:23 WBC 30.0 H RBC 3.11 L Hgb 8.6 L Hct 27.7 L MCH RDW 20.0 H Plt Count 473 H Lymph % (Auto) Gates % (Auto) Gates # Baso # Seg Neutrophils % Seg Neuts % (Manual) Lymphocytes % (Manual) Monocytes % (Manual) Seg Neutrophils # Seg Neutrophils # Man Lymphocytes # (Manual) Monocytes # (Manual) Eosinophils # (Manual) Basophils # (Manual) PT INR APTT ABG pH ABG pO2 ABG HCO3 ABG O2 Saturation ABG Base Excess ABG Hemoglobin Oxyhemoglobin Sodium Potassium Chloride Carbon Dioxide BUN Creatinine Glucose POC Glucose 167 H 148 H Lactic Acid Calcium Ionized Calcium Phosphorus Magnesium Total Bilirubin AST ALT Alkaline Phosphatase Ammonia Total Creatine Kinase CK-MB (CK-2) CK-MB (CK-2) Rel Index Total Protein Albumin Urine WBC (Auto) Vancomycin Trough Salicylates Acetaminophen Plasma/Serum Alcohol Crossmatch 12/15/19 12/15/19 12/15/19 07:23 12:21 17:41 WBC RBC Hgb Hct MCH RDW Plt Count Lymph % (Auto) Gates % (Auto) Gates # Baso # Seg Neutrophils % Seg Neuts % (Manual) Lymphocytes % (Manual) Monocytes % (Manual) Seg Neutrophils # Seg Neutrophils # Man Lymphocytes # (Manual) Monocytes # (Manual) Eosinophils # (Manual) Basophils # (Manual) PT INR APTT ABG pH ABG pO2 ABG HCO3 ABG O2 Saturation ABG Base Excess ABG Hemoglobin Oxyhemoglobin Sodium 147 H Potassium 3.5 L D Chloride 111.2 H Carbon Dioxide 19 L BUN 29 H Creatinine Glucose 126 H POC Glucose 154 H 144 H Lactic Acid Calcium Ionized Calcium Phosphorus Magnesium Total Bilirubin AST ALT Alkaline Phosphatase Ammonia Total Creatine Kinase CK-MB (CK-2) CK-MB (CK-2) Rel Index Total Protein Albumin Urine WBC (Auto) Vancomycin Trough Salicylates Acetaminophen Plasma/Serum Alcohol Crossmatch 12/16/19 12/16/19 12/16/19 00:22 05:30 05:44 WBC 30.8 H RBC 2.58 L Hgb 7.1 L Hct 22.7 L MCH RDW 19.6 H Plt Count 451 H Lymph % (Auto) Gates % (Auto) Gates # Baso # Seg Neutrophils % Seg Neuts % (Manual) Lymphocytes % (Manual) Monocytes % (Manual) Seg Neutrophils # Seg Neutrophils # Man Lymphocytes # (Manual) Monocytes # (Manual) Eosinophils # (Manual) Basophils # (Manual) PT INR APTT ABG pH ABG pO2 ABG HCO3 ABG O2 Saturation ABG Base Excess ABG Hemoglobin Oxyhemoglobin Sodium Potassium Chloride Carbon Dioxide BUN Creatinine Glucose POC Glucose 139 H 126 H Lactic Acid Calcium Ionized Calcium Phosphorus Magnesium Total Bilirubin AST ALT Alkaline Phosphatase Ammonia Total Creatine Kinase CK-MB (CK-2) CK-MB (CK-2) Rel Index Total Protein Albumin Urine WBC (Auto) Vancomycin Trough Salicylates Acetaminophen Plasma/Serum Alcohol Crossmatch 12/16/19 12/16/19 12/16/19 05:44 11:48 17:37 WBC RBC Hgb Hct MCH RDW Plt Count Lymph % (Auto) Gates % (Auto) Gates # Baso # Seg Neutrophils % Seg Neuts % (Manual) Lymphocytes % (Manual) Monocytes % (Manual) Seg Neutrophils # Seg Neutrophils # Man Lymphocytes # (Manual) Monocytes # (Manual) Eosinophils # (Manual) Basophils # (Manual) PT INR APTT ABG pH ABG pO2 ABG HCO3 ABG O2 Saturation ABG Base Excess ABG Hemoglobin Oxyhemoglobin Sodium Potassium 3.4 L Chloride 109.2 H Carbon Dioxide 19 L BUN 27 H Creatinine Glucose 124 H POC Glucose 125 H 148 H Lactic Acid Calcium Ionized Calcium Phosphorus Magnesium Total Bilirubin AST ALT Alkaline Phosphatase Ammonia Total Creatine Kinase CK-MB (CK-2) CK-MB (CK-2) Rel Index Total Protein Albumin Urine WBC (Auto) Vancomycin Trough Salicylates Acetaminophen Plasma/Serum Alcohol Crossmatch 12/16/19 12/17/19 12/17/19 23:43 05:28 12:47 WBC RBC Hgb Hct MCH RDW Plt Count Lymph % (Auto) Gates % (Auto) Gates # Baso # Seg Neutrophils % Seg Neuts % (Manual) Lymphocytes % (Manual) Monocytes % (Manual) Seg Neutrophils # Seg Neutrophils # Man Lymphocytes # (Manual) Monocytes # (Manual) Eosinophils # (Manual) Basophils # (Manual) PT INR APTT ABG pH ABG pO2 ABG HCO3 ABG O2 Saturation ABG Base Excess ABG Hemoglobin Oxyhemoglobin Sodium Potassium Chloride Carbon Dioxide BUN Creatinine Glucose POC Glucose 142 H 140 H 125 H Lactic Acid Calcium Ionized Calcium Phosphorus Magnesium Total Bilirubin AST ALT Alkaline Phosphatase Ammonia Total Creatine Kinase CK-MB (CK-2) CK-MB (CK-2) Rel Index Total Protein Albumin Urine WBC (Auto) Vancomycin Trough Salicylates Acetaminophen Plasma/Serum Alcohol Crossmatch 12/17/19 12/17/19 12/17/19 17:05 18:00 Unknown WBC RBC Hgb Hct MCH RDW Plt Count Lymph % (Auto) Gates % (Auto) Gates # Baso # Seg Neutrophils % Seg Neuts % (Manual) Lymphocytes % (Manual) Monocytes % (Manual) Seg Neutrophils # Seg Neutrophils # Man Lymphocytes # (Manual) Monocytes # (Manual) Eosinophils # (Manual) Basophils # (Manual) PT INR APTT ABG pH ABG pO2 68.1 L ABG HCO3 ABG O2 Saturation 93.7 L ABG Base Excess ABG Hemoglobin 5.0 L Oxyhemoglobin 91.7 L Sodium Potassium Chloride Carbon Dioxide BUN Creatinine Glucose POC Glucose 140 H Lactic Acid Calcium Ionized Calcium Phosphorus Magnesium Total Bilirubin AST ALT Alkaline Phosphatase Ammonia Total Creatine Kinase CK-MB (CK-2) CK-MB (CK-2) Rel Index Total Protein Albumin Urine WBC (Auto) Vancomycin Trough Salicylates Acetaminophen Plasma/Serum Alcohol Crossmatch 12/18/19 12/18/19 12/18/19 00:16 04:53 04:53 WBC 28.6 H RBC 2.27 L Hgb 6.3 L Hct 19.5 L* MCH RDW 20.0 H Plt Count 497 H Lymph % (Auto) Gates % (Auto) Gates # Baso # Seg Neutrophils % Seg Neuts % (Manual) Lymphocytes % (Manual) Monocytes % (Manual) Seg Neutrophils # Seg Neutrophils # Man Lymphocytes # (Manual) Monocytes # (Manual) Eosinophils # (Manual) Basophils # (Manual) PT INR APTT ABG pH ABG pO2 ABG HCO3 ABG O2 Saturation ABG Base Excess ABG Hemoglobin Oxyhemoglobin Sodium Potassium Chloride 107.9 H Carbon Dioxide 20 L BUN 27 H Creatinine 0.6 L Glucose 116 H POC Glucose 123 H Lactic Acid Calcium Ionized Calcium Phosphorus Magnesium Total Bilirubin AST ALT Alkaline Phosphatase Ammonia Total Creatine Kinase CK-MB (CK-2) CK-MB (CK-2) Rel Index Total Protein Albumin Urine WBC (Auto) Vancomycin Trough Salicylates Acetaminophen Plasma/Serum Alcohol Crossmatch 12/18/19 12/18/19 12/18/19 06:38 11:22 12:08 WBC RBC Hgb Hct MCH RDW Plt Count Lymph % (Auto) Gates % (Auto) Gates # Baso # Seg Neutrophils % Seg Neuts % (Manual) Lymphocytes % (Manual) Monocytes % (Manual) Seg Neutrophils # Seg Neutrophils # Man Lymphocytes # (Manual) Monocytes # (Manual) Eosinophils # (Manual) Basophils # (Manual) PT INR APTT ABG pH ABG pO2 ABG HCO3 ABG O2 Saturation ABG Base Excess ABG Hemoglobin Oxyhemoglobin Sodium Potassium Chloride Carbon Dioxide BUN Creatinine Glucose POC Glucose 120 H 127 H Lactic Acid Calcium Ionized Calcium Phosphorus Magnesium Total Bilirubin AST ALT Alkaline Phosphatase Ammonia Total Creatine Kinase CK-MB (CK-2) CK-MB (CK-2) Rel Index Total Protein Albumin Urine WBC (Auto) Vancomycin Trough Salicylates Acetaminophen Plasma/Serum Alcohol Crossmatch See Detail 12/18/19 12/18/19 12/18/19 14:05 17:49 23:53 WBC RBC Hgb Hct MCH RDW Plt Count Lymph % (Auto) Gates % (Auto) Gates # Baso # Seg Neutrophils % Seg Neuts % (Manual) Lymphocytes % (Manual) Monocytes % (Manual) Seg Neutrophils # Seg Neutrophils # Man Lymphocytes # (Manual) Monocytes # (Manual) Eosinophils # (Manual) Basophils # (Manual) PT INR APTT ABG pH 7.267 L ABG pO2 69.8 L ABG HCO3 ABG O2 Saturation 88.4 L ABG Base Excess ABG Hemoglobin 7.1 L Oxyhemoglobin 86.4 L Sodium Potassium Chloride Carbon Dioxide BUN Creatinine Glucose POC Glucose 157 H 128 H Lactic Acid Calcium Ionized Calcium Phosphorus Magnesium Total Bilirubin AST ALT Alkaline Phosphatase Ammonia Total Creatine Kinase CK-MB (CK-2) CK-MB (CK-2) Rel Index Total Protein Albumin Urine WBC (Auto) Vancomycin Trough Salicylates Acetaminophen Plasma/Serum Alcohol Crossmatch 12/19/19 12/19/19 12/19/19 03:37 03:37 05:25 WBC 31.3 H RBC 2.60 L Hgb 7.6 L Hct 23.0 L MCH RDW 19.4 H Plt Count 530 H Lymph % (Auto) Gates % (Auto) Gates # Baso # Seg Neutrophils % Seg Neuts % (Manual) Lymphocytes % (Manual) Monocytes % (Manual) Seg Neutrophils # Seg Neutrophils # Man Lymphocytes # (Manual) Monocytes # (Manual) Eosinophils # (Manual) Basophils # (Manual) PT INR APTT ABG pH ABG pO2 ABG HCO3 ABG O2 Saturation ABG Base Excess ABG Hemoglobin Oxyhemoglobin Sodium Potassium Chloride Carbon Dioxide 18 L BUN 36 H Creatinine Glucose 111 H POC Glucose 123 H Lactic Acid Calcium Ionized Calcium Phosphorus Magnesium Total Bilirubin AST ALT Alkaline Phosphatase Ammonia Total Creatine Kinase CK-MB (CK-2) CK-MB (CK-2) Rel Index Total Protein Albumin Urine WBC (Auto) Vancomycin Trough Salicylates Acetaminophen Plasma/Serum Alcohol Crossmatch 12/19/19 12/19/19 12/20/19 12:59 18:33 00:00 WBC RBC Hgb Hct MCH RDW Plt Count Lymph % (Auto) Gates % (Auto) Gates # Baso # Seg Neutrophils % Seg Neuts % (Manual) Lymphocytes % (Manual) Monocytes % (Manual) Seg Neutrophils # Seg Neutrophils # Man Lymphocytes # (Manual) Monocytes # (Manual) Eosinophils # (Manual) Basophils # (Manual) PT INR APTT ABG pH ABG pO2 ABG HCO3 ABG O2 Saturation ABG Base Excess ABG Hemoglobin Oxyhemoglobin Sodium Potassium Chloride Carbon Dioxide BUN Creatinine Glucose POC Glucose 130 H 118 H 135 H Lactic Acid Calcium Ionized Calcium Phosphorus Magnesium Total Bilirubin AST ALT Alkaline Phosphatase Ammonia Total Creatine Kinase CK-MB (CK-2) CK-MB (CK-2) Rel Index Total Protein Albumin Urine WBC (Auto) Vancomycin Trough Salicylates Acetaminophen Plasma/Serum Alcohol Crossmatch 12/20/19 12/20/19 12/20/19 05:46 12:31 18:07 WBC RBC Hgb Hct MCH RDW Plt Count Lymph % (Auto) Gates % (Auto) Gates # Baso # Seg Neutrophils % Seg Neuts % (Manual) Lymphocytes % (Manual) Monocytes % (Manual) Seg Neutrophils # Seg Neutrophils # Man Lymphocytes # (Manual) Monocytes # (Manual) Eosinophils # (Manual) Basophils # (Manual) PT INR APTT ABG pH ABG pO2 ABG HCO3 ABG O2 Saturation ABG Base Excess ABG Hemoglobin Oxyhemoglobin Sodium Potassium Chloride Carbon Dioxide BUN Creatinine Glucose POC Glucose 131 H 128 H 134 H Lactic Acid Calcium Ionized Calcium Phosphorus Magnesium Total Bilirubin AST ALT Alkaline Phosphatase Ammonia Total Creatine Kinase CK-MB (CK-2) CK-MB (CK-2) Rel Index Total Protein Albumin Urine WBC (Auto) Vancomycin Trough Salicylates Acetaminophen Plasma/Serum Alcohol Crossmatch 12/21/19 12/21/19 12/21/19 03:28 03:28 07:21 WBC 29.4 H RBC 2.30 L Hgb 6.8 L Hct 20.2 L MCH RDW 20.2 H Plt Count 746 H Lymph % (Auto) Gates % (Auto) Gates # Baso # Seg Neutrophils % Seg Neuts % (Manual) 85.0 H Lymphocytes % (Manual) 8.0 L Monocytes % (Manual) Seg Neutrophils # Seg Neutrophils # Man 25.0 H Lymphocytes # (Manual) Monocytes # (Manual) 1.5 H Eosinophils # (Manual) 0.6 H Basophils # (Manual) PT INR APTT ABG pH ABG pO2 ABG HCO3 ABG O2 Saturation ABG Base Excess ABG Hemoglobin Oxyhemoglobin Sodium Potassium Chloride Carbon Dioxide 17 L BUN 57 H Creatinine 1.4 H D Glucose POC Glucose 124 H Lactic Acid Calcium Ionized Calcium Phosphorus Magnesium Total Bilirubin AST ALT Alkaline Phosphatase Ammonia Total Creatine Kinase CK-MB (CK-2) CK-MB (CK-2) Rel Index Total Protein Albumin Urine WBC (Auto) Vancomycin Trough Salicylates Acetaminophen Plasma/Serum Alcohol Crossmatch 12/21/19 12/21/19 12/21/19 08:56 12:06 14:53 WBC RBC Hgb 7.2 L Hct 22.9 L MCH RDW Plt Count Lymph % (Auto) Gates % (Auto) Gates # Baso # Seg Neutrophils % Seg Neuts % (Manual) Lymphocytes % (Manual) Monocytes % (Manual) Seg Neutrophils # Seg Neutrophils # Man Lymphocytes # (Manual) Monocytes # (Manual) Eosinophils # (Manual) Basophils # (Manual) PT INR APTT ABG pH ABG pO2 ABG HCO3 ABG O2 Saturation ABG Base Excess ABG Hemoglobin Oxyhemoglobin Sodium Potassium Chloride Carbon Dioxide BUN Creatinine Glucose POC Glucose 116 H Lactic Acid Calcium Ionized Calcium Phosphorus Magnesium Total Bilirubin AST ALT Alkaline Phosphatase Ammonia Total Creatine Kinase CK-MB (CK-2) CK-MB (CK-2) Rel Index Total Protein Albumin Urine WBC (Auto) Vancomycin Trough 33.8 H Salicylates Acetaminophen Plasma/Serum Alcohol Crossmatch 12/21/19 12/21/19 12/21/19 14:54 17:27 23:49 WBC RBC Hgb Hct MCH RDW Plt Count Lymph % (Auto) Gates % (Auto) Gates # Baso # Seg Neutrophils % Seg Neuts % (Manual) Lymphocytes % (Manual) Monocytes % (Manual) Seg Neutrophils # Seg Neutrophils # Man Lymphocytes # (Manual) Monocytes # (Manual) Eosinophils # (Manual) Basophils # (Manual) PT INR APTT ABG pH ABG pO2 ABG HCO3 ABG O2 Saturation ABG Base Excess ABG Hemoglobin Oxyhemoglobin Sodium Potassium Chloride Carbon Dioxide BUN Creatinine Glucose POC Glucose 145 H 127 H Lactic Acid Calcium Ionized Calcium Phosphorus Magnesium Total Bilirubin AST ALT Alkaline Phosphatase Ammonia Total Creatine Kinase CK-MB (CK-2) CK-MB (CK-2) Rel Index Total Protein Albumin Urine WBC (Auto) Vancomycin Trough Salicylates Acetaminophen Plasma/Serum Alcohol Crossmatch See Detail 12/22/19 12/22/19 12/22/19 04:43 05:56 08:40 WBC RBC Hgb Hct MCH RDW Plt Count Lymph % (Auto) Gates % (Auto) Gates # Baso # Seg Neutrophils % Seg Neuts % (Manual) Lymphocytes % (Manual) Monocytes % (Manual) Seg Neutrophils # Seg Neutrophils # Man Lymphocytes # (Manual) Monocytes # (Manual) Eosinophils # (Manual) Basophils # (Manual) PT INR APTT ABG pH ABG pO2 75.6 L ABG HCO3 ABG O2 Saturation ABG Base Excess -2.6 L ABG Hemoglobin 6.8 L Oxyhemoglobin 94.6 L Sodium Potassium Chloride Carbon Dioxide 17 L BUN 60 H Creatinine 1.4 H Glucose 126 H POC Glucose 153 H Lactic Acid Calcium Ionized Calcium Phosphorus Magnesium Total Bilirubin AST ALT Alkaline Phosphatase Ammonia Total Creatine Kinase CK-MB (CK-2) CK-MB (CK-2) Rel Index Total Protein Albumin Urine WBC (Auto) Vancomycin Trough Salicylates Acetaminophen Plasma/Serum Alcohol Crossmatch 12/22/19 12/22/19 12/23/19 12:07 17:49 04:30 WBC 22.4 H RBC 2.68 L Hgb 7.6 L Hct 22.9 L MCH RDW 19.9 H Plt Count 998 H Lymph % (Auto) Gates % (Auto) Gates # Baso # Seg Neutrophils % Seg Neuts % (Manual) 88.0 H Lymphocytes % (Manual) 2.0 L Monocytes % (Manual) 9.0 H Seg Neutrophils # Seg Neutrophils # Man 19.7 H Lymphocytes # (Manual) 0.4 L Monocytes # (Manual) 2.0 H Eosinophils # (Manual) Basophils # (Manual) PT INR APTT ABG pH ABG pO2 ABG HCO3 ABG O2 Saturation ABG Base Excess ABG Hemoglobin Oxyhemoglobin Sodium Potassium Chloride Carbon Dioxide BUN Creatinine Glucose POC Glucose 140 H 116 H Lactic Acid Calcium Ionized Calcium Phosphorus Magnesium Total Bilirubin AST ALT Alkaline Phosphatase Ammonia Total Creatine Kinase CK-MB (CK-2) CK-MB (CK-2) Rel Index Total Protein Albumin Urine WBC (Auto) Vancomycin Trough Salicylates Acetaminophen Plasma/Serum Alcohol Crossmatch 12/23/19 12/23/19 12/23/19 04:30 12:00 18:06 WBC RBC Hgb Hct MCH RDW Plt Count Lymph % (Auto) Gates % (Auto) Gates # Baso # Seg Neutrophils % Seg Neuts % (Manual) Lymphocytes % (Manual) Monocytes % (Manual) Seg Neutrophils # Seg Neutrophils # Man Lymphocytes # (Manual) Monocytes # (Manual) Eosinophils # (Manual) Basophils # (Manual) PT INR APTT ABG pH ABG pO2 ABG HCO3 ABG O2 Saturation ABG Base Excess ABG Hemoglobin Oxyhemoglobin Sodium Potassium 5.2 H Chloride Carbon Dioxide 21 L BUN 69 H Creatinine 1.5 H Glucose 117 H POC Glucose 128 H 138 H Lactic Acid Calcium Ionized Calcium Phosphorus Magnesium Total Bilirubin AST ALT Alkaline Phosphatase Ammonia Total Creatine Kinase CK-MB (CK-2) CK-MB (CK-2) Rel Index Total Protein Albumin Urine WBC (Auto) Vancomycin Trough Salicylates Acetaminophen Plasma/Serum Alcohol Crossmatch 12/23/19 12/24/19 12/24/19 23:46 04:31 05:08 WBC RBC Hgb Hct MCH RDW Plt Count Lymph % (Auto) Gates % (Auto) Gates # Baso # Seg Neutrophils % Seg Neuts % (Manual) Lymphocytes % (Manual) Monocytes % (Manual) Seg Neutrophils # Seg Neutrophils # Man Lymphocytes # (Manual) Monocytes # (Manual) Eosinophils # (Manual) Basophils # (Manual) PT INR APTT ABG pH ABG pO2 ABG HCO3 ABG O2 Saturation ABG Base Excess ABG Hemoglobin Oxyhemoglobin Sodium Potassium 5.3 H Chloride 107.6 H Carbon Dioxide 20 L BUN 72 H Creatinine 1.6 H Glucose 120 H POC Glucose 120 H 140 H Lactic Acid Calcium Ionized Calcium Phosphorus Magnesium Total Bilirubin AST ALT Alkaline Phosphatase Ammonia Total Creatine Kinase CK-MB (CK-2) CK-MB (CK-2) Rel Index Total Protein Albumin Urine WBC (Auto) Vancomycin Trough Salicylates Acetaminophen Plasma/Serum Alcohol Crossmatch 12/24/19 12/24/19 12/25/19 11:58 17:49 03:47 WBC 36.2 H RBC 2.92 L Hgb 8.4 L Hct 26.1 L MCH RDW 20.2 H Plt Count 942 H Lymph % (Auto) Gates % (Auto) Gates # Baso # Seg Neutrophils % Seg Neuts % (Manual) 97.5 H Lymphocytes % (Manual) 1.0 L Monocytes % (Manual) Seg Neutrophils # Seg Neutrophils # Man 35.3 H Lymphocytes # (Manual) 0.4 L Monocytes # (Manual) Eosinophils # (Manual) Basophils # (Manual) PT INR APTT ABG pH ABG pO2 ABG HCO3 ABG O2 Saturation ABG Base Excess ABG Hemoglobin Oxyhemoglobin Sodium Potassium Chloride Carbon Dioxide BUN Creatinine Glucose POC Glucose 146 H 131 H Lactic Acid Calcium Ionized Calcium Phosphorus Magnesium Total Bilirubin AST ALT Alkaline Phosphatase Ammonia Total Creatine Kinase CK-MB (CK-2) CK-MB (CK-2) Rel Index Total Protein Albumin Urine WBC (Auto) Vancomycin Trough Salicylates Acetaminophen Plasma/Serum Alcohol Crossmatch 12/25/19 12/25/19 12/25/19 03:47 05:30 12:23 WBC RBC Hgb Hct MCH RDW Plt Count Lymph % (Auto) Gates % (Auto) Gates # Baso # Seg Neutrophils % Seg Neuts % (Manual) Lymphocytes % (Manual) Monocytes % (Manual) Seg Neutrophils # Seg Neutrophils # Man Lymphocytes # (Manual) Monocytes # (Manual) Eosinophils # (Manual) Basophils # (Manual) PT INR APTT ABG pH ABG pO2 ABG HCO3 ABG O2 Saturation ABG Base Excess ABG Hemoglobin Oxyhemoglobin Sodium Potassium Chloride Carbon Dioxide 15 L BUN 70 H Creatinine 1.7 H Glucose 153 H POC Glucose 169 H 135 H Lactic Acid Calcium Ionized Calcium Phosphorus Magnesium Total Bilirubin AST ALT Alkaline Phosphatase Ammonia Total Creatine Kinase CK-MB (CK-2) CK-MB (CK-2) Rel Index Total Protein Albumin Urine WBC (Auto) Vancomycin Trough Salicylates Acetaminophen Plasma/Serum Alcohol Crossmatch 12/25/19 12/25/19 12/26/19 17:37 23:29 09:47 WBC 22.1 H RBC 2.83 L Hgb 7.9 L Hct 25.5 L MCH RDW 20.0 H Plt Count 894 H Lymph % (Auto) Gates % (Auto) Gates # Baso # Seg Neutrophils % Seg Neuts % (Manual) Lymphocytes % (Manual) Monocytes % (Manual) Seg Neutrophils # Seg Neutrophils # Man Lymphocytes # (Manual) Monocytes # (Manual) Eosinophils # (Manual) Basophils # (Manual) PT INR APTT ABG pH ABG pO2 ABG HCO3 ABG O2 Saturation ABG Base Excess ABG Hemoglobin Oxyhemoglobin Sodium Potassium Chloride Carbon Dioxide BUN Creatinine Glucose POC Glucose 120 H 140 H Lactic Acid Calcium Ionized Calcium Phosphorus Magnesium Total Bilirubin AST ALT Alkaline Phosphatase Ammonia Total Creatine Kinase CK-MB (CK-2) CK-MB (CK-2) Rel Index Total Protein Albumin Urine WBC (Auto) Vancomycin Trough Salicylates Acetaminophen Plasma/Serum Alcohol Crossmatch 12/26/19 12/26/19 12/26/19 09:47 11:46 17:52 WBC RBC Hgb Hct MCH RDW Plt Count Lymph % (Auto) Gates % (Auto) Gates # Baso # Seg Neutrophils % Seg Neuts % (Manual) Lymphocytes % (Manual) Monocytes % (Manual) Seg Neutrophils # Seg Neutrophils # Man Lymphocytes # (Manual) Monocytes # (Manual) Eosinophils # (Manual) Basophils # (Manual) PT INR APTT ABG pH ABG pO2 ABG HCO3 ABG O2 Saturation ABG Base Excess ABG Hemoglobin Oxyhemoglobin Sodium Potassium Chloride Carbon Dioxide 18 L BUN 65 H Creatinine 1.4 H Glucose 132 H POC Glucose 110 H 145 H Lactic Acid Calcium Ionized Calcium Phosphorus Magnesium Total Bilirubin AST ALT Alkaline Phosphatase Ammonia Total Creatine Kinase CK-MB (CK-2) CK-MB (CK-2) Rel Index Total Protein Albumin Urine WBC (Auto) Vancomycin Trough Salicylates Acetaminophen Plasma/Serum Alcohol Crossmatch 12/27/19 12/27/19 12/27/19 00:01 03:42 03:42 WBC 18.0 H RBC 2.86 L Hgb 8.0 L Hct 25.2 L MCH RDW 19.2 H Plt Count 873 H Lymph % (Auto) 8.4 L Gates % (Auto) 7.5 H Gates # 1.4 H Baso # 0.2 H Seg Neutrophils % 82.2 H Seg Neuts % (Manual) Lymphocytes % (Manual) Monocytes % (Manual) Seg Neutrophils # 14.8 H Seg Neutrophils # Man Lymphocytes # (Manual) Monocytes # (Manual) Eosinophils # (Manual) Basophils # (Manual) PT INR APTT ABG pH ABG pO2 ABG HCO3 ABG O2 Saturation ABG Base Excess ABG Hemoglobin Oxyhemoglobin Sodium Potassium Chloride Carbon Dioxide BUN 73 H Creatinine 1.4 H Glucose 119 H POC Glucose 124 H Lactic Acid Calcium Ionized Calcium Phosphorus Magnesium Total Bilirubin AST ALT Alkaline Phosphatase Ammonia Total Creatine Kinase CK-MB (CK-2) CK-MB (CK-2) Rel Index Total Protein Albumin Urine WBC (Auto) Vancomycin Trough Salicylates Acetaminophen Plasma/Serum Alcohol Crossmatch 12/27/19 12/27/19 05:45 11:45 WBC RBC Hgb Hct MCH RDW Plt Count Lymph % (Auto) Gates % (Auto) Gates # Baso # Seg Neutrophils % Seg Neuts % (Manual) Lymphocytes % (Manual) Monocytes % (Manual) Seg Neutrophils # Seg Neutrophils # Man Lymphocytes # (Manual) Monocytes # (Manual) Eosinophils # (Manual) Basophils # (Manual) PT INR APTT ABG pH ABG pO2 ABG HCO3 ABG O2 Saturation ABG Base Excess ABG Hemoglobin Oxyhemoglobin Sodium Potassium Chloride Carbon Dioxide BUN Creatinine Glucose POC Glucose 131 H 123 H Lactic Acid Calcium Ionized Calcium Phosphorus Magnesium Total Bilirubin AST ALT Alkaline Phosphatase Ammonia Total Creatine Kinase CK-MB (CK-2) CK-MB (CK-2) Rel Index Total Protein Albumin Urine WBC (Auto) Vancomycin Trough Salicylates Acetaminophen Plasma/Serum Alcohol Crossmatch Allied health notes reviewed: nursing
[2019-12-27] MEDS: metroNIDAZOLE 500 MG TAB PO SCH ×3 (16:49→22:07)
[2019-12-27] MEDS: SCOPOLAMINE TRANSDERMAL PATCH 72 HR TD SCH (17:01)
[2019-12-27] MEDS: hydrOXYzine PAMOATE 25 MG CAP PO SCH ×2 (17:02→22:06)
[2019-12-27] MEDS: QUEtiapine 100 MG TAB PO SCH (22:07)
[2019-12-27] MEDS: VANCOMYCIN 750 MG in SODIUM CHLORIDE 0.9% 250ML 250 ML IV SCH (22:08)
--- NOTE | 2019-12-28 07:39 | Progress Note ---
Assessment and Plan Assessment and plan: Patient is a 54-year-old woman with a history of Hypertension, Depression, tobacco and alcohol dependency who presented to [facility] ED on 11/22/2019 due to cardiac arrest outside of the hospital. EMS found pt in PEA. Upon their arrival patient in sinus tachycardia. EMS were unable to intubate patient with a ET tube because she was clenching down therefore Joe airway placed per records. Patient received Narcan and Epinephrine. Patient's rhythm changed to PEA to sinus bradycardia, to PEA, then to sinus tach after receiving Narcan and Epinephrine. Per the ED physician who evaluated pt, Patient presented with a pulse, intermittent respirations, and bagging support via Joe airway with O2 sat of 100%. Accu-Chek of 71 obtained by EMS Status post cardiac arrest, etiology unknown Acute respiratory failure with hypoxia s/p Intubation via ETT >96 hours: Trach and PEG planned, CCM following Acute cystitis with Sepsis, not sure POA, treated with antibiotics and this completed a few days 11/29/2019 ago no growth was noted on cultures no fever. We will continue off antibiotics at this time. Seizure disorder: treat with Keppra Presumed anoxic brain injury: Neurology is following Alcohol abuse: CIWA protocol Acute metabolic encephalopathy/toxic encephalopathy due to the above BHAVANA secondary to vasomotor nephropathy: treat with IVF Hypertension: watch bp closely, prn IV antihypertensives prn Distended abdomen: treat with NGT to suction Transaminitis with Ischemic hepatitis Metabolic acidosis/alcoholic acidosis/lactic acidosis H. Influenzae, tracheobronchitis Hypernatremia: free water and monitor bmp closely >DNR DVT ppx: held sq heparin due to drop in h/h and anemia 12/04-: Patient failed CPAP trial became apneic according to documentation. No clinical change, continue current management, monitor H/H Awaiting labs. No new changes at this time opens eyes. Surgeon discussed trach and PEG with family but they want to get more information about hospice which they have been directed to the case finisher. Patient overnight had a episode of vomiting. Zofran started. 12/11/19: I took over patient care on day 18, Patient remains intubated, daily weaning trails. Trach and PEG planned once family consents. Mother is Anh Jesus @ [phone]. CCT 31 minutes 12/12/19: transfuse PRBC, s/p trach and PEG 12/13/19: Trach and PEG done, New fevers today, suspected Aspiration Pneumonitis vs Atelectasis; get blood cultures and empirically treat with ABX, levaquin/flagyl IV combo. Renewed restraints. ARF improved drastically as Cr went from 2.8 to 1.9 overnigh. however, WBC skyrocketed to 38.3k from 18k. Will repeat bmp and cbc, CCT 33 minutes 12/14/19: WBC improved slightly, potassium 2.5, renal function continue to improve. replete potassium, still febrile, re-consulted ID; give free water flushes via PEG. Dispo: aggressive wean and once off vent will have to discharge home, no insurance. 12/15/19: Still on MV Peep 6 fiO2 50%, ordered AM labs, renewed restraints. Right arm swollen, get Venous doppler-not done today due to COVID-19-->tomorrow 12/16/19: still on MV, PEEP 6 FiO2 30%, replete potassium, renewed restraints, give Tylenol of fevers (first real temp >100.4 since 12/14/19), green-culture, get CXR, UA. Venous doppler done and negative for DVT 12/17/19: Day 24 on MV, PEEP 6 FiO2 30%, trying to wean, held sq heparin due to drop in h/h and anemia, renewed restraints, fever appears to be due to worsening pneumonia, UA negative, pCXR Impression: Slight interval worsening of a consolidative opacity in the left mid to lower lung, worrisome for pneumonia in the appropriate clinical setting. Adjust Vancomycin dose continue cefepime with ID following. Swollen right arm with Venous doppler of right arm r/o DVT ordered but not done due to COVID-19, 12/25/19: Resumed care, Hospice discussed yesterday, will follow up. WBC increased to 36.4k, hgb steady at 8.4, +FOBT, Cr creeping up at 1.7 12/26/19: I called Jeremy Anh Jesus ([phone]) and she asked if I could call her back. Patient remains in PVS (persistent vegetative state) with poor prognosis, doesn't really need restraints, still needing Mechanical Ventilation/Life support. Not sedated Possible withdraw today, I called Dr. Naik. I called and d/w mother, she wants to come and withdraw daughter from [facility] tomorrow evening around 6-7pm 12/27/19: still poor prognosis, still in PVS, anticipate Withdrawal today==>d/w Dr. Aldana and he would prefer withdrawal at Hospice facility, d/w mother multiple times, I waited until 7pm to met but they came shortly after. The did sign the DNR form. 12/28/19: still poor prognosis, does not restraints, hopefully to Hospice inpatient Patient has been on MV/life support for 35 days, I not sure she is weanable, d/w Dr. Hernandez History Interval history: Patient was seen and examined. Follow-up on current diagnosis of Respiratory failure. Overnight uneventful as no events directly reported to me. Imaging, nursing note, chart, labs and old chart reviewed. PUI?: No Hospitalist Physical - Physical exam Narrative exam: Gen: critical ill, intubated, unresponsive not on sedation HEENT: ETT in place Neck: supple, no adenopathy, no thyromegaly, no JVD CVS/Heart: Regular Tachycardia, normal S1S2, pulses present bilaterally Chest/Lungs: CTA B, Symmetrical chest expansion, good air entry bilaterally GI/Abdomen: soft, NTND, good bowel sounds, no guarding or rebound MSK: right arm swollen Neuro: doesnt follow commands Psych: not responding - Constitutional Vitals: Temp Pulse Resp BP Pulse Ox 97.3 F L 106 H 21 141/92 100 12/28/19 03:35 12/28/19 07:00 12/28/19 07:00 12/28/19 07:00 12/28/19 07:00 General appearance: Present: no acute distress, other (on vent with sedation) Results - Labs CBC & Chem 7: 12/27/19 03:42 12/27/19 03:42 Labs: Laboratory Last Values WBC 18.0 K/mm3 (4.5-11.0) H 12/27/19 03:42 RBC 2.86 M/mm3 (3.65-5.03) L 12/27/19 03:42 Hgb 8.0 gm/dl (10.1-14.3) L 12/27/19 03:42 Hct 25.2 % (30.3-42.9) L 12/27/19 03:42 MCV 88 fl (79-97) 12/27/19 03:42 MCH 28 pg (28-32) 12/27/19 03:42 MCHC 32 % (30-34) 12/27/19 03:42 RDW 19.2 % (13.2-15.2) H 12/27/19 03:42 Plt Count 873 K/mm3 (140-440) H 12/27/19 03:42 Lymph % (Auto) 8.4 % (13.4-35.0) L 12/27/19 03:42 Chambers % (Auto) 7.5 % (0.0-7.3) H 12/27/19 03:42 Eos % (Auto) 1.0 % (0.0-4.3) 12/27/19 03:42 Baso % (Auto) 0.9 % (0.0-1.8) 12/27/19 03:42 Lymph # 1.5 K/mm3 (1.2-5.4) 12/27/19 03:42 Chambers # 1.4 K/mm3 (0.0-0.8) H 12/27/19 03:42 Eos # 0.2 K/mm3 (0.0-0.4) 12/27/19 03:42 Baso # 0.2 K/mm3 (0.0-0.1) H 12/27/19 03:42 Add Manual Diff Complete 12/25/19 03:47 Total Counted 200 12/25/19 03:47 Seg Neutrophils % 82.2 % (40.0-70.0) H 12/27/19 03:42 Seg Neuts % (Manual) 97.5 % (40.0-70.0) H 12/25/19 03:47 Band Neutrophils % 0 % 12/25/19 03:47 Lymphocytes % (Manual) 1.0 % (13.4-35.0) L 12/25/19 03:47 Reactive Lymphs % (Man) 0 % 12/25/19 03:47 Monocytes % (Manual) 1.5 % (0.0-7.3) 12/25/19 03:47 Eosinophils % (Manual) 0 % (0.0-4.3) 12/25/19 03:47 Basophils % (Manual) 0 % (0.0-1.8) 12/25/19 03:47 Metamyelocytes % 0 % 12/25/19 03:47 Myelocytes % 0 % 12/25/19 03:47 Promyelocytes % 0 % 12/25/19 03:47 Blast Cells % 0 % 12/25/19 03:47 Nucleated RBC % Not Reportable 12/25/19 03:47 Seg Neutrophils # 14.8 K/mm3 (1.8-7.7) H 12/27/19 03:42 Seg Neutrophils # Man 35.3 K/mm3 (1.8-7.7) H 12/25/19 03:47 Band Neutrophils # 0.0 K/mm3 12/25/19 03:47 Lymphocytes # (Manual) 0.4 K/mm3 (1.2-5.4) L 12/25/19 03:47 Abs React Lymphs (Man) 0.0 K/mm3 12/25/19 03:47 Monocytes # (Manual) 0.5 K/mm3 (0.0-0.8) 12/25/19 03:47 Eosinophils # (Manual) 0.0 K/mm3 (0.0-0.4) 12/25/19 03:47 Basophils # (Manual) 0.0 K/mm3 (0.0-0.1) 12/25/19 03:47 Metamyelocytes # 0.0 K/mm3 12/25/19 03:47 Myelocytes # 0.0 K/mm3 12/25/19 03:47 Promyelocytes # 0.0 K/mm3 12/25/19 03:47 Blast Cells # 0.0 K/mm3 12/25/19 03:47 Pathologist Review 12/13/19 07:48 WBC Morphology Not Reportable 12/25/19 03:47 Hypersegmented Neuts Not Reportable 12/25/19 03:47 Hyposegmented Neuts Not Reportable 12/25/19 03:47 Hypogranular Neuts Not Reportable 12/25/19 03:47 Smudge Cells Not Reportable 12/25/19 03:47 Toxic Granulation Not Reportable 12/25/19 03:47 Toxic Vacuolation Not Reportable 12/25/19 03:47 Dohle Bodies Not Reportable 12/25/19 03:47 Pelger-Huet Anomaly Not Reportable 12/25/19 03:47 Dominique Rods Not Reportable 12/25/19 03:47 Platelet Estimate Consistent w auto 12/25/19 03:47 Clumped Platelets Not Reportable 12/25/19 03:47 Plt Clumps, EDTA Not Reportable 12/25/19 03:47 Large Platelets Not Reportable 12/25/19 03:47 Giant Platelets Not Reportable 12/25/19 03:47 Platelet Satelliting Not Reportable 12/25/19 03:47 Plt Morphology Comment Not Reportable 12/25/19 03:47 RBC Morphology Not Reportable 12/25/19 03:47 Dimorphic RBCs Not Reportable 12/25/19 03:47 Polychromasia Not Reportable 12/25/19 03:47 Hypochromasia Not Reportable 12/25/19 03:47 Poikilocytosis Not Reportable 12/25/19 03:47 Anisocytosis 1+ 12/25/19 03:47 Microcytosis Not Reportable 12/25/19 03:47 Macrocytosis Not Reportable 12/25/19 03:47 Spherocytes Not Reportable 12/25/19 03:47 Pappenheimer Bodies Not Reportable 12/25/19 03:47 Sickle Cells Not Reportable 12/25/19 03:47 Target Cells Not Reportable 12/25/19 03:47 Tear Drop Cells Not Reportable 12/25/19 03:47 Ovalocytes Not Reportable 12/25/19 03:47 Helmet Cells Not Reportable 12/25/19 03:[address] [place] Robert Bodies Not Reportable 12/25/19 03:47 Xenia Rings Not Reportable 12/25/19 03:47 Cornell Cells Not Reportable 12/25/19 03:47 Bite Cells Not Reportable 12/25/19 03:47 Crenated Cell Not Reportable 12/25/19 03:47 Elliptocytes Not Reportable 12/25/19 03:47 Acanthocytes (Spur) Not Reportable 12/25/19 03:47 Rouleaux Not Reportable 12/25/19 03:47 Hemoglobin C Crystals Not Reportable 12/25/19 03:47 Schistocytes Not Reportable 12/25/19 03:47 Malaria parasites Not Reportable 12/25/19 03:47 Gregg Bodies Not Reportable 12/25/19 03:47 Hem Pathologist Commnt No 12/25/19 03:47 PT 17.0 Sec. (12.2-14.9) H 11/23/19 03:47 INR 1.36 (0.87-1.13) H 11/23/19 03:47 APTT 128.2 Sec. (24.2-36.6) H* 11/23/19 03:47 Heparin Anti-Xa Level 0.31 U.I./ml (0.3-0.7) 11/23/19 09:03 ABG pH 7.389 pH Units (7.350-7.450) 12/22/19 08:40 ABG pCO2 37.5 mm Hg 12/22/19 08:40 ABG pO2 75.6 mm Hg (80.0-90.0) L 12/22/19 08:40 ABG HCO3 22.1 mmol/L (20.0-26.0) 12/22/19 08:40 ABG O2 Saturation 96.7 % (95.0-99.0) 12/22/19 08:40 ABG O2 Content 9.1 (0.0-44) 12/22/19 08:40 ABG Base Excess -2.6 mmol/L (-2.0-3.0) L 12/22/19 08:40 ABG Hemoglobin 6.8 gm/dl (12.0-16.0) L 12/22/19 08:40 ABG Carboxyhemoglobin 1.8 % (0.0-5.0) 12/22/19 08:40 ABG Methemoglobin 0.3 % (0.0-1.5) 12/22/19 08:40 Oxyhemoglobin 94.6 % (95.0-99.0) L 12/22/19 08:40 FiO2 30 % 12/22/19 08:40 Sodium 143 mmol/L (137-145) 12/27/19 03:42 Potassium 4.3 mmol/L (3.6-5.0) 12/27/19 03:42 Chloride 105.8 mmol/L (98-107) 12/27/19 03:42 Carbon Dioxide 23 mmol/L (22-30) 12/27/19 03:42 Anion Gap 19 mmol/L 12/27/19 03:42 BUN 73 mg/dL (7-17) H 12/27/19 03:42 Creatinine 1.4 mg/dL (0.7-1.2) H 12/27/19 03:42 Estimated GFR 47 ml/min 12/27/19 03:42 BUN/Creatinine Ratio 52 % 12/27/19 03:42 Glucose 119 mg/dL (65-100) H 12/27/19 03:42 POC Glucose 130 (70-105) H 12/28/19 05:14 Lactic Acid 1.80 mmol/L (0.7-2.0) 11/25/19 05:05 Calcium 9.5 mg/dL (8.4-10.2) 12/27/19 03:42 Ionized Calcium 4.5 mg/dL (4.8-5.6) L 11/23/19 06:32 Phosphorus 4.20 mg/dL (2.5-4.5) D 11/28/19 08:59 Magnesium 2.30 mg/dL (1.7-2.3) 11/29/19 13:41 Total Bilirubin 0.40 mg/dL (0.1-1.2) 12/13/19 07:48 AST 27 units/L (5-40) 12/13/19 07:48 ALT 26 units/L (7-56) 12/13/19 07:48 Alkaline Phosphatase 316 units/L (35-129) H 12/13/19 07:48 Ammonia 42.0 umol/L (25-60) 11/29/19 13:41 Total Creatine Kinase 139 units/L (30-135) H 11/22/19 23:27 CK-MB (CK-2) 8.3 ng/mL (0.0-4.0) H 11/22/19 23:27 CK-MB (CK-2) Rel Index 5.9 (0-4) H 11/22/19 23:27 Troponin T < 0.010 ng/mL (0.00-0.029) 11/22/19 23:27 Total Protein 6.8 g/dL (6.3-8.2) 12/13/19 07:48 Albumin 2.4 g/dL (3.9-5) L 12/13/19 07:48 Albumin/Globulin Ratio 0.5 % 12/13/19 07:48 Lipase 18 units/L (13-60) 11/23/19 00:34 Procalcitonin 1.09 ng/mL (<0.15) 11/23/19 04:53 Urine Color Yellow (Yellow) 12/16/19 Unknown Urine Turbidity Slightly-cloudy (Clear) 12/16/19 Unknown Urine pH 5.0 (5.0-7.0) 12/16/19 Unknown Ur Specific [place] 1.018 (1.003-1.030) 12/16/19 Unknown Urine Protein 30 mg/dl mg/dL (Negative) 12/16/19 Unknown Urine Glucose (UA) Neg mg/dL (Negative) 12/16/19 Unknown Urine Ketones Neg mg/dL (Negative) 12/16/19 Unknown Urine Blood Sm (Negative) 12/16/19 Unknown Urine Nitrite Neg (Negative) 12/16/19 Unknown Urine Bilirubin Neg (Negative) 12/16/19 Unknown Urine Urobilinogen < 2.0 mg/dL (<2.0) 12/16/19 Unknown Ur Leukocyte Esterase Neg (Negative) 12/16/19 Unknown Urine WBC (Auto) 6.0 /HPF (0.0-6.0) 12/16/19 Unknown Urine RBC (Auto) 9.0 /HPF (0.0-6.0) 12/16/19 Unknown U Epithel Cells (Auto) < 1.0 /HPF (0-13.0) 12/16/19 Unknown Urine Bacteria (Auto) 2+ /HPF (Negative) 11/22/19 23:17 Hyaline Casts 3 /LPF 12/16/19 Unknown Granular Casts 3 /LPF 12/16/19 Unknown Urine Mucus Few /HPF 12/16/19 Unknown Vancomycin Trough 33.8 ug/mL (5.0-20.0) H 12/21/19 08:56 Random Vancomycin 16.2 ug/mL (0-40.0) 12/24/19 04:31 Salicylates < 0.3 mg/dL (2.8-20.0) L 11/22/19 23:27 Urine Opiates Screen Presumptive negative 11/22/19 23:17 Urine Methadone Screen Presumptive negative 11/22/19 23:17 Acetaminophen < 5.0 ug/mL (10.0-30.0) L 11/22/19 23:27 Ur Barbiturates Screen Presumptive negative 11/22/19 23:17 Ur Phencyclidine Scrn Presumptive negative 11/22/19 23:17 Ur Amphetamines Screen Presumptive negative 11/22/19 23:17 U Benzodiazepines Scrn Presumptive negative 11/22/19 23:17 Urine Cocaine Screen Presumptive negative 11/22/19 23:17 U Marijuana (THC) Screen Presumptive negative 11/22/19 23:17 Drugs of Abuse Note Disclamer 11/22/19 23:17 Plasma/Serum Alcohol 0.08 % (0-0.07) H 11/22/19 23:27 Hepatitis A IgM Ab Non-reactive (NonReactive) 11/23/19 01:19 Hep Bs Antigen Non-reactive (Negative) 11/23/19 01:19 Hep B Core IgM Ab Non-reactive (NonReactive) 11/23/19 01:19 Hepatitis C Antibody Non-reactive (NonReactive) 11/23/19 01:19 Blood Type O POSITIVE 12/21/19 14:54 Antibody Screen Negative 12/21/19 14:54 Crossmatch See Detail 12/21/19 14:54 - Diagnostic Impressions Diagnostic Impressions: Echocardiogram 11/23/19 03:58 Transthoracic Echocardiogram Indication: Cardiac arrest BP: 131/89 HR: 115 Conclusions *The study quality is technically difficult. *Global left ventricular wall motion and contractility are within normal limits. *The estimated ejection fraction is 55-60%. *Abnormal left ventricular diastolic filling is observed, consistent with impaired relaxation. *There is no pericardial effusion. Findings Procedure Info: The study quality is technically difficult. The study was technically limited due to the patient's inability to lay in the left lateral decubitus position. Left Ventricle: The left ventricular chamber size is normal. There is no left ventricular hypertrophy. Global left ventricular wall motion and contractility are within normal limits. Global left ventricular systolic function is normal. The estimated ejection fraction is 55-60%. Abnormal left ventricular diastolic filling is observed, consistent with impaired relaxation. Left Atrium: The left atrial chamber size is normal. Aortic Valve: The aortic valve leaflets are mildly thickened. Mitral Valve: The mitral valve leaflets are mildly thickened. There is no evidence of mitral regurgitation. Tricuspid Valve: The tricuspid valve leaflets are normal. There is trace tricuspid regurgitation. The right ventricular systolic pressure is calculated at 33 mmHg. Pulmonic Valve: The pulmonic valve appears normal. Pericardium: The pericardium appears normal. There is no pericardial effusion. Aorta: The aorta appears normal. Venous: The inferior vena cava appears normal in size. Measurements Chambers 2D Name Value Normal Range IVSd (2D) 0.94 cm (0.6 - 1.1) LVPWd (2D) 0.81 cm (0.6 - 1.1) LVIDd (2D) 3.6 cm (3.7 - 5.6) LVIDs (2D) 2.27 cm (2 - 3.8) LV FS (2D) 36.93 % - EF Teichholz (2D) 67.76 % - Ao root diameter (2D) 3.03 cm (2 - 3.7) Volumes/Mass Name Value Normal Range LA ESV SP 4CH (A/L) 16.89 ml - LA ESV SP 4CH (MOD) 15.52 ml - Diastolic/Systolic Function Name Value Normal Range MV E-wave Vmax 0.55 m/sec - MV deceleration time 200.89 msec - MV A-wave Vmax 0.68 m/sec - MV E:A ratio 0.82 ratio - Aortic Valve Name Value Normal Range AV Vmax 1.1 m/sec - AV VTI 15.9 cm - AV peak gradient 4.86 mmHg - AV mean gradient 2.59 mmHg - LVOT diameter 2 cm - LVOT Vmax 1.03 m/sec - LVOT VTI 15.87 cm - LVOT peak gradient 4.24 mmHg - LVOT mean gradient 2.41 mmHg - SV LVOT 49.77 ml - JOSÉ MIGUEL (continuity Vmax) 2.93 cm2 - JOSÉ MIGUEL (continuity VTI) 3.13 cm2 - Tricuspid Valve Name Value Normal Range TR Vmax 2.74 m/sec - TR peak gradient 303 mmHg - RAP 3 mmHg - RVSP 33 mmHg - IVC diameter 1.77 cm (1.2 - 2.3) Pulmonic Valve/Qp:Qs Name Value Normal Range PV Vmax 0.77 m/sec - PV peak gradient 2.4 mmHg - PV acceleration time 114.18 msec - Echocardiogram Limited Views 12/17/19 14:53 Transthoracic Echocardiogram Indication: R/O Vegetations BP: 144/83 HR: 133 Conclusions *Global left ventricular systolic function is mildly decreased. *The estimated ejection fraction is 45-50%. *A trivial pericardial effusion is visualized. Findings Left Ventricle: The left ventricular chamber size is normal. Global left ventricular systolic function is mildly decreased. The estimated ejection fraction is 45-50%. Left Atrium: The left atrial chamber size is normal. Right Ventricle: The right ventricular cavity size is normal. Right Atrium: The right atrial cavity size is normal. Aortic Valve: The aortic valve is not well visualized. There is no evidence of aortic regurgitation. Mitral Valve: The mitral valve leaflets are mildly thickened. There is trace of mitral regurgitation. Tricuspid Valve: The tricuspid valve leaflets are mildly thickened. There is trace tricuspid regurgitation. The right ventricular systolic pressure is calculated at 29 mmHg. Pulmonic Valve: The pulmonic valve is not well visualized. There is no evidence of pulmonic regurgitation. Pericardium: A trivial pericardial effusion is visualized. Aorta: There is no dilatation of the ascending aorta. There is no dilatation of the aortic root. Venous: The inferior vena cava appears normal in size. There is a greater than 50% respiratory change in the inferior vena cava dimension. Measurements Chambers 2D Name Value Normal Range IVSd (2D) 0.83 cm (0.6 - 1.1) LVPWd (2D) 0.98 cm (0.6 - 1.1) LVIDd (2D) 3.71 cm (3.7 - 5.6) LVIDs (2D) 2.93 cm (2 - 3.8) LV FS (2D) 21.12 % - EF Teichholz (2D) 43.71 % - Ao root diameter (2D) 3.02 cm (2 - 3.7) Volumes/Mass Name Value Normal Range LA ESV SP 4CH (A/L) 36.8 ml - LA ESV SP 2CH (A/L) 45.89 ml - LA ESV BP (A/L) 42.35 ml - LA ESV BP (A/L) index 26.63 ml/m2 - LA ESV SP 4CH (MOD) 34.42 ml - LA ESV SP 2CH (MOD) 44.21 ml - LA ESV BP (MOD) 39.82 ml - LA ESV BP (MOD) index 25.05 ml/m2 - Aortic Valve Name Value Normal Range LVOT diameter 1.63 cm - Tricuspid Valve Name Value Normal Range TR Vmax 2.56 m/sec - TR peak gradient 26 mmHg - RAP 3 mmHg - RVSP 29 mmHg - IVC diameter 1.83 cm (1.2 - 2.3) Dela Cruz/IV: Voiding Method Indwelling Catheter IV Catheter Type [Forearm] Peripheral IV IV Catheter Type [Left Forearm Peripheral IV ] IV Catheter Type [Right Peripheral IV Antecubital] IV Catheter Type [Right Hand] Peripheral IV IV Catheter Type [Right Wrist] Peripheral IV IV Catheter Type [Left Wrist] Peripheral IV IV Catheter Type [Left Peripheral IV Antecubital] IV Catheter Type [Right INT / Saline Lock Forearm] IV Catheter Type [Left Hand] Peripheral IV Active Medications - Current Medications Current Medications: Generic Name Dose Route Start Last Admin Trade Name Freq PRN Reason Stop Dose Admin Acetaminophen 650 mg 12/06/19 10:25 12/25/19 00:59 Tylenol FEEDTUBE 650 mg Q6H PRN Administration TEMP >/=100.3 Lipase/Protease/Amylase 1 each 11/23/19 11:[address] 10,500 Unit FEEDTUBE PRN PRN For Clogged Feeding Tube Fentanyl 50 mcg 12/05/19 02:10 12/12/19 20:04 Sublimaze IV 50 mcg Q10MIN PRN Administration ANALGESIA Glycopyrrolate 1 mg 12/24/19 14:00 12/27/19 22:06 Robinul PO 1 mg TID LUCHO Administration Hydralazine HCl 10 mg 11/24/19 00:45 12/18/19 13:25 Apresoline IV 10 mg Q6H PRN Administration SBP > 160 Hydroxyzine Pamoate 25 mg 12/06/19 10:00 12/27/19 22:06 Vistaril PO 25 mg BID LUCHO Administration Vancomycin HCl 750 mg/ Sodium 265 mls @ 166.667 mls/hr 12/24/19 22:00 12/27/19 22:08 Chloride IV 12/30/19 21:59 166.667 mls/hr Q72H LUCHO Administration Lansoprazole 30 mg 11/27/19 10:00 12/27/19 10:25 Prevacid Solutab FEEDTUBE 30 mg QDAY LUCHO Administration Levetiracetam 500 mg 11/29/19 10:00 12/27/19 22:06 Keppra PO 500 mg BID LUCHO Administration Lorazepam 2 mg 11/26/19 11:09 12/25/19 00:17 Ativan IV 2 mg Q4H PRN Administration Agitation Metronidazole 500 mg 12/25/19 09:00 12/27/19 22:07 Flagyl PO 12/30/19 06:01 500 mg Q8HR LUCHO Administration Mirtazapine 30 mg 12/06/19 10:00 12/27/19 10:25 Remeron PO 30 mg DAILY LUCHO Administration Morphine Sulfate 2 mg 12/12/19 18:40 12/24/19 23:04 Morphine IV 2 mg Q4H PRN Administration Pain, Moderate (4-6) Ondansetron HCl 4 mg 12/10/19 07:53 12/10/19 09:51 Zofran IV 4 mg Q4H PRN Administration Nausea And Vomiting Quetiapine Fumarate 200 mg 12/23/19 10:00 12/27/19 10:25 Seroquel PO 200 mg QAM LUCHO Administration Quetiapine Fumarate 200 mg 12/25/19 22:00 12/27/19 22:07 Seroquel PO 200 mg QHS LUCHO Administration Scopolamine 1 each 12/12/19 15:00 12/27/19 17:01 Transderm-Scop TD 1 each Q3D LUCHO Administration Senna/Docusate Sodium 2 tab 12/24/19 07:00 Senokot S PO BID PRN CONSTIPATION Sertraline HCl 25 mg 12/06/19 10:00 12/27/19 10:24 Zoloft PO 25 mg QDAY LCUHO Administration Simple Syrup 15 ml 11/23/19 11:50 Simple Syrup FEEDTUBE PRN PRN Hypoglycemia Simple Syrup 30 ml 11/23/19 11:50 Simple Syrup FEEDTUBE PRN PRN Hypoglycemia Sodium Bicarbonate 325 mg 11/23/19 11:50 Sodium Bicarbonate FEEDTUBE PRN PRN For Clogged Feeding Tube Tamsulosin HCl 0.4 mg 12/14/19 13:00 12/27/19 10:24 Flomax PO 0.4 mg QDAY LUCHO Administration Nutrition/Malnutrition Assess - Dietary Evaluation Nutrition/Malnutrition Findings: Nutrition Notes Start: 11/23/19 11:29 Freq: Status: Active Protocol: Document 12/21/19 14:01 LM (Rec: 12/21/19 14:05 [email or web address]) Nutrition Notes Initial or Follow up Reassessment Current Diagnosis Hypertension Other Pertinent Diagnosis Cardaic arrest, ETOH dependence, UTI Current Diet Vital AF 1.2 at 50 ml/hr Labs/Tests Na 140 Pertinent Medications Reviewed Height 5 ft 6 in Weight 61.7 kg [place] Body Weight (kg) 59.09 BMI 21.9 Weight change and time frame wt change noted, pt with edema Subjective/Other Information Per RN pt is tolerating TF at goal. Na corrected. Percent of energy/protein needs met: 97%/100% Burn Absent Trauma Absent GI Symptoms None Current % PO Negligible Minimum of two criteria No Fluid Accumulation Mild (non-severe) #1 Nutrition Diagnosis Inadequate oral intake Diagnosis Progress(for reassessment Continues documentation) Is patient on ventilator? Yes Is Patient Ambulatory and/or Out of Bed No REE-([place]-[facility]. Jeor-confined to bed) [phone] Calculation [facility] Additional Notes Protein: 66-110g (1.2-2g/kg) Fluid: 1 ml/kcal Nutrition Intervention Change Diet Order: TF Nutrition Support: Vital AF 1.2 at 50 ml/hr Flush 80 ml q4h Kcal 1,440 Protein (gm) 90 Fluid (mL) 973 Goal #1 TF tolerance Goal #2 Meet at least 80% of energy and protein needs via TF Anticipated Discharge Needs: unable to determine at this time Follow-Up By: 12/28/19 Additional Comments Follow for stable TF tolerance
[2019-12-28] MEDS: GLYCOPYRROLATE 1 MG TAB PO SCH ×3 (08:00→22:16)
[2019-12-28] MEDS: metroNIDAZOLE 500 MG TAB PO SCH ×3 (08:00→22:17)
[2019-12-28] MEDS: levETIRAcetam 500 MG/5 ML ORAL LIQD PO SCH ×2 (10:56→22:15)
[2019-12-28] MEDS: LANSOPRAZOLE 30 MG SOLUTAB FEEDTUBE SCH (10:56)
[2019-12-28] MEDS: MIRTAZAPINE 30 MG TAB PO SCH (10:56)
[2019-12-28] MEDS: QUEtiapine 200 MG TAB PO SCH (10:56)
[2019-12-28] MEDS: TAMSULOSIN 0.4 MG CAP PO SCH (10:56)
[2019-12-28] MEDS: hydrOXYzine PAMOATE 25 MG CAP PO SCH ×2 (10:57→22:17)
[2019-12-28] MEDS: SERTRALINE 25 MG TAB PO SCH (10:57)
--- NOTE | 2019-12-28 12:28 | Progress Note ---
Assessment and Plan Acute cardiopulmonary arrest with ROSC Acute hypoxemic respiratory failure on MVS Acute metabolic-toxic encephalopathy Metabolic acidosis/alcoholic acidosis/Lactic acidosis Ischemic hepatitis Leucocytosis with lactic acidosis Tobacco use disorder ALcohol use Disorder Hypokalemia High grade fevers (Recommend DNR status first. Secondly with her now tolerating PSV trials terminal extubation is frought with risk of sustained agitation in short term and likely significant patient discomfort; Will recommend hospice evaluation and transfer rather) - no new issues; continue care as below - repeat CXR prn at this point - continue daily SAT's and assessment for readiness for SBT (For PSV trial today) - Continue to wean supplemental oxygen for target O2 sat's > 90% - continue to rest on AC mode qhs - VAP bundle addressed (continue aspiration precautions, HOB > 40) - continue bronchodilators with routine trach care and pulmonary hygiene per RT - continue Seroquel to see if aqids weaning as ventiolation is adequate and perhaps tachypnea on PSV mode has a neural component - continue Antibiotics per ID recommendations; de-escalate based on HILARIO /sensitivities / clinical progress - continue Seroquel for tentative delirium and to spare IV sedation - continue Reglan for G.I. motility - Continue VTE and Stress ulcer prophylaxis - Continue enteric nutritional support - Monitor glycemic control, with target blood glucose 140-180 mg/dL while critically ill (Avoid hypoglycemia) - ABG and CXR prn - Continue to avoid nephrotoxins, adjust all medications fro GFR and CrCL - Continue to avoid benzodiazepines , as much as possible, to reduce the possibility of delirium - Continue prn analgesia per CPOT score - Continue to maintain of sleep-wake cycle, avoid delirium - PT/OT/ROM exercises- awaiting PT/OT evaluation - Continue mobility protocol and skin assessment per protocol for pressure ulcer prevention - Continue to monitor for clinical seizures - Continue Nicotine withdrawal precautions, alcohol withdrawal precautions - continue other care per attending / other consultants ..... re-evaluate in am & prn CONDITION: CRITICAL PROGNOSIS: GUARDED CODE STATUS: FULL CODE The high probability of a clinically significant, sudden or life-threatening deterioration of the [respiratory, cardiovascular & neurologic] system(s) required my full and direct attention, intervention and personal management. The aggregate critical care time was [32] minutes without overlap. Time includes spent on; [x] Data Review and interpretation [x] Patient assessment and monitoring of vital signs [x] Documentation [x] Medication orders and management Subjective Date of service: 12/28/19 Principal diagnosis: Ac cardiopulmonary arrest; Ac hypoxemic resp failure; Acute encephalopathy Interval history: Patient is seen today for: Acute cardiopulmonary arrest with ROSC; Acute hypoxemic respiratory failure; Acute metabolic-toxic encephalopathy; Ischemic hepatitis; Leucocytosis with lactic acidosis; Tobacco use disorder; Alcohol use Disorder; Hypokalemia; High grade fevers Seen and examined at bedside; 24hour events reviewed; nursing and respiratory care staff consulted; no adverse overnight events reported to me; resting peacefully in bed; remains a difficult wean; tentatively to be made a DNR; AMS is persistent PUI?: No COVID19: Negative Objective Vital Signs - 12hr 12/28/19 12/28/19 12/28/19 00:36 01:00 01:07 Temperature Pulse Rate 102 H 103 H Pulse Rate [ 109 H From Monitor] Respiratory 20 20 Rate Blood Pressure 120/80 125/89 O2 Sat by Pulse 100 100 98 Oximetry O2 Sat by Pulse Oximetry [ Assessment] 12/28/19 12/28/19 12/28/19 02:00 03:00 03:01 Temperature Pulse Rate 101 H 106 H Pulse Rate [ From Monitor] Respiratory 20 20 Rate Blood Pressure 132/88 134/87 O2 Sat by Pulse 98 99 Oximetry O2 Sat by Pulse 100 Oximetry [ Assessment] 12/28/19 12/28/19 12/28/19 03:35 04:00 04:25 Temperature 97.3 F L Pulse Rate 106 H 107 H Pulse Rate [ From Monitor] Respiratory 23 Rate Blood Pressure 139/88 139/88 O2 Sat by Pulse 100 100 Oximetry O2 Sat by Pulse Oximetry [ Assessment] 12/28/19 12/28/19 12/28/19 04:28 05:00 06:00 Temperature Pulse Rate 106 H 107 H Pulse Rate [ 107 H From Monitor] Respiratory 23 23 20 Rate Blood Pressure 133/90 134/90 O2 Sat by Pulse 99 100 100 Oximetry O2 Sat by Pulse Oximetry [ Assessment] 12/28/19 12/28/19 12/28/19 07:00 08:00 08:47 Temperature 97.3 F L Pulse Rate 106 H 112 H 104 H Pulse Rate [ 113 H From Monitor] Respiratory 21 15 20 Rate Blood Pressure 141/92 150/97 143/92 O2 Sat by Pulse 100 99 100 Oximetry O2 Sat by Pulse Oximetry [ Assessment] 12/28/19 12/28/19 12/28/19 09:00 10:00 11:00 Temperature Pulse Rate 110 H 109 H 112 H Pulse Rate [ From Monitor] Respiratory 26 H 17 21 Rate Blood Pressure 155/101 147/98 150/97 O2 Sat by Pulse 100 100 100 Oximetry O2 Sat by Pulse Oximetry [ Assessment] Constitutional: no acute distress, other (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, with midline tracheostomy and mild dys-synchrony) Eyes: non-icteric ENT: oropharynx moist, other (s/p trach) Neck: supple, no lymphadenopathy, no JVD Effort: mildly labored Ascultation: Bilateral: diminished breath sounds, rhonchi Percussion: Bilateral: not dull Cardiovascular: regular rate and rhythm (tachycardia), other (S1,S2) Gastrointestinal: normoactive bowel sounds, soft, non-tender, non-distended Integumentary: normal Extremities: no cyanosis, no edema, pulses normal, no ischemia or petechiae Neurologic: unable to assess, other (awake but not tracking voice ) Psychiatric: other (Psychiatric: Unable to assess) CBC and BMP: 12/30/19 01:06 12/30/19 01:06 ABG, PT/INR, D-dimer: ABG ABG pH 7.389 pH Units (7.350-7.450) 12/22/19 08:40 ABG pCO2 37.5 mm Hg 12/22/19 08:40 ABG pO2 75.6 mm Hg (80.0-90.0) L 12/22/19 08:40 ABG O2 Saturation 96.7 % (95.0-99.0) 12/22/19 08:40 PT/INR, D-dimer PT 17.0 Sec. (12.2-14.9) H 11/23/19 03:47 INR 1.36 (0.87-1.13) H 11/23/19 03:47 Abnormal lab findings: Abnormal Labs 11/22/19 11/22/19 11/22/19 23:17 23:18 23:27 WBC 21.2 H RBC 3.59 L Hgb 9.8 L Hct MCH 27 L RDW 18.6 H Plt Count 454 H Lymph % (Auto) [place] % (Auto) [place] # Baso # Seg Neutrophils % Seg Neuts % (Manual) 86.0 H Lymphocytes % (Manual) 9.0 L Monocytes % (Manual) Seg Neutrophils # Seg Neutrophils # Man 18.2 H Lymphocytes # (Manual) Monocytes # (Manual) 1.1 H Eosinophils # (Manual) Basophils # (Manual) PT INR APTT ABG pH ABG pO2 ABG HCO3 ABG O2 Saturation ABG Base Excess ABG Hemoglobin Oxyhemoglobin Sodium Potassium Chloride Carbon Dioxide BUN Creatinine Glucose POC Glucose 53 L Lactic Acid Calcium Ionized Calcium Phosphorus Magnesium Total Bilirubin AST ALT Alkaline Phosphatase Ammonia Total Creatine Kinase CK-MB (CK-2) CK-MB (CK-2) Rel Index Total Protein Albumin Urine WBC (Auto) 40.0 H Vancomycin Trough Salicylates Acetaminophen Plasma/Serum Alcohol Crossmatch 11/22/19 11/22/19 11/22/19 23:27 23:27 23:27 WBC RBC Hgb Hct MCH RDW Plt Count Lymph % (Auto) [place] % (Auto) [place] # Baso # Seg Neutrophils % Seg Neuts % (Manual) Lymphocytes % (Manual) Monocytes % (Manual) Seg Neutrophils # Seg Neutrophils # Man Lymphocytes # (Manual) Monocytes # (Manual) Eosinophils # (Manual) Basophils # (Manual) PT INR APTT ABG pH ABG pO2 ABG HCO3 ABG O2 Saturation ABG Base Excess ABG Hemoglobin Oxyhemoglobin Sodium Potassium 2.4 L* Chloride 85.1 L Carbon Dioxide 19 L BUN Creatinine 0.5 L Glucose 261 H POC Glucose Lactic Acid Calcium Ionized Calcium Phosphorus Magnesium Total Bilirubin AST 609 H ALT 152 H Alkaline Phosphatase 160 H Ammonia 117.0 H Total Creatine Kinase 139 H CK-MB (CK-2) 8.3 H CK-MB (CK-2) Rel Index 5.9 H Total Protein Albumin 3.6 L Urine WBC (Auto) Vancomycin Trough Salicylates < 0.3 L Acetaminophen Plasma/Serum Alcohol Crossmatch 11/22/19 11/22/19 11/23/19 23:27 23:27 01:10 WBC RBC Hgb Hct MCH RDW Plt Count Lymph % (Auto) [place] % (Auto) [place] # Baso # Seg Neutrophils % Seg Neuts % (Manual) Lymphocytes % (Manual) Monocytes % (Manual) Seg Neutrophils # Seg Neutrophils # Man Lymphocytes # (Manual) Monocytes # (Manual) Eosinophils # (Manual) Basophils # (Manual) PT INR APTT ABG pH 7.273 L ABG pO2 209.7 H ABG HCO3 ABG O2 Saturation 99.2 H ABG Base Excess -3.9 L ABG Hemoglobin 10.6 L Oxyhemoglobin 93.9 L Sodium Potassium Chloride Carbon Dioxide BUN Creatinine Glucose POC Glucose Lactic Acid Calcium Ionized Calcium Phosphorus Magnesium Total Bilirubin AST ALT Alkaline Phosphatase Ammonia Total Creatine Kinase CK-MB (CK-2) CK-MB (CK-2) Rel Index Total Protein Albumin Urine WBC (Auto) Vancomycin Trough Salicylates Acetaminophen < 5.0 L Plasma/Serum Alcohol 0.08 H Crossmatch 11/23/19 11/23/19 11/23/19 01:19 01:19 03:47 WBC RBC Hgb Hct MCH RDW Plt Count Lymph % (Auto) [place] % (Auto) [place] # Baso # Seg Neutrophils % Seg Neuts % (Manual) Lymphocytes % (Manual) Monocytes % (Manual) Seg Neutrophils # Seg Neutrophils # Man Lymphocytes # (Manual) Monocytes # (Manual) Eosinophils # (Manual) Basophils # (Manual) PT 16.3 H INR 1.29 H APTT ABG pH ABG pO2 ABG HCO3 ABG O2 Saturation ABG Base Excess ABG Hemoglobin Oxyhemoglobin Sodium Potassium Chloride Carbon Dioxide BUN Creatinine Glucose POC Glucose Lactic Acid 2.10 H* 5.00 H* Calcium Ionized Calcium Phosphorus Magnesium Total Bilirubin AST ALT Alkaline Phosphatase Ammonia Total Creatine Kinase CK-MB (CK-2) CK-MB (CK-2) Rel Index Total Protein Albumin Urine WBC (Auto) Vancomycin Trough Salicylates Acetaminophen Plasma/Serum Alcohol Crossmatch 11/23/19 11/23/19 11/23/19 03:47 03:47 04:53 WBC RBC Hgb 9.4 L Hct MCH RDW Plt Count Lymph % (Auto) [place] % (Auto) [place] # Baso # Seg Neutrophils % Seg Neuts % (Manual) Lymphocytes % (Manual) Monocytes % (Manual) Seg Neutrophils # Seg Neutrophils # Man Lymphocytes # (Manual) Monocytes # (Manual) Eosinophils # (Manual) Basophils # (Manual) PT 17.0 H INR 1.36 H APTT 128.2 H* ABG pH ABG pO2 ABG HCO3 ABG O2 Saturation ABG Base Excess ABG Hemoglobin Oxyhemoglobin Sodium Potassium Chloride Carbon Dioxide 18 L BUN Creatinine 0.5 L Glucose 105 H POC Glucose Lactic Acid Calcium 8.3 L Ionized Calcium Phosphorus 2.40 L Magnesium Total Bilirubin 1.30 H AST 761 H ALT 158 H Alkaline Phosphatase 143 H Ammonia Total Creatine Kinase CK-MB (CK-2) CK-MB (CK-2) Rel Index Total Protein Albumin 2.8 L Urine WBC (Auto) Vancomycin Trough Salicylates Acetaminophen Plasma/Serum Alcohol Crossmatch 11/23/19 11/23/19 11/23/19 05:12 06:32 06:32 WBC 16.8 H RBC 3.31 L Hgb 8.9 L Hct 28.7 L MCH 27 L RDW 18.6 H Plt Count Lymph % (Auto) [place] % (Auto) [place] # Baso # Seg Neutrophils % Seg Neuts % (Manual) 94.0 H Lymphocytes % (Manual) 1.0 L Monocytes % (Manual) Seg Neutrophils # Seg Neutrophils # Man 15.8 H Lymphocytes # (Manual) 0.2 L Monocytes # (Manual) Eosinophils # (Manual) Basophils # (Manual) PT INR APTT ABG pH ABG pO2 ABG HCO3 ABG O2 Saturation ABG Base Excess -3.2 L ABG Hemoglobin 9.0 L Oxyhemoglobin 93.6 L Sodium Potassium Chloride Carbon Dioxide BUN Creatinine Glucose POC Glucose Lactic Acid Calcium Ionized Calcium 4.5 L Phosphorus Magnesium Total Bilirubin AST ALT Alkaline Phosphatase Ammonia Total Creatine Kinase CK-MB (CK-2) CK-MB (CK-2) Rel Index Total Protein Albumin Urine WBC (Auto) Vancomycin Trough Salicylates Acetaminophen Plasma/Serum Alcohol Crossmatch 11/23/19 11/24/19 11/24/19 06:32 04:35 04:35 WBC RBC Hgb Hct MCH RDW Plt Count Lymph % (Auto) [place] % (Auto) [place] # Baso # Seg Neutrophils % Seg Neuts % (Manual) Lymphocytes % (Manual) Monocytes % (Manual) Seg Neutrophils # Seg Neutrophils # Man Lymphocytes # (Manual) Monocytes # (Manual) Eosinophils # (Manual) Basophils # (Manual) PT INR APTT ABG pH ABG pO2 ABG HCO3 ABG O2 Saturation ABG Base Excess ABG Hemoglobin Oxyhemoglobin Sodium Potassium Chloride Carbon Dioxide BUN Creatinine Glucose POC Glucose Lactic Acid 3.30 H* Calcium Ionized Calcium Phosphorus Magnesium 1.40 L Total Bilirubin AST ALT Alkaline Phosphatase Ammonia 98.0 H Total Creatine Kinase CK-MB (CK-2) CK-MB (CK-2) Rel Index Total Protein Albumin Urine WBC (Auto) Vancomycin Trough Salicylates Acetaminophen Plasma/Serum Alcohol Crossmatch 11/24/19 11/25/19 11/25/19 05:22 04:34 05:05 WBC 17.3 H RBC 2.88 L Hgb 7.8 L Hct 24.6 L MCH 27 L RDW 18.5 H Plt Count Lymph % (Auto) 7.7 L [place] % (Auto) 9.7 H [place] # 1.7 H Baso # Seg Neutrophils % 82.2 H Seg Neuts % (Manual) Lymphocytes % (Manual) Monocytes % (Manual) Seg Neutrophils # 14.2 H Seg Neutrophils # Man Lymphocytes # (Manual) Monocytes # (Manual) Eosinophils # (Manual) Basophils # (Manual) PT INR APTT ABG pH 7.475 H ABG pO2 ABG HCO3 29.4 H 32.3 H ABG O2 Saturation ABG Base Excess 5.4 H 6.9 H ABG Hemoglobin 9.0 L 10.6 L Oxyhemoglobin 94.3 L Sodium Potassium Chloride Carbon Dioxide BUN Creatinine Glucose POC Glucose Lactic Acid Calcium Ionized Calcium Phosphorus Magnesium Total Bilirubin AST ALT Alkaline Phosphatase Ammonia Total Creatine Kinase CK-MB (CK-2) CK-MB (CK-2) Rel Index Total Protein Albumin Urine WBC (Auto) Vancomycin Trough Salicylates Acetaminophen Plasma/Serum Alcohol Crossmatch 11/25/19 11/25/19 11/26/19 05:05 22:46 03:31 WBC RBC Hgb Hct MCH RDW Plt Count Lymph % (Auto) [place] % (Auto) [place] # Baso # Seg Neutrophils % Seg Neuts % (Manual) Lymphocytes % (Manual) Monocytes % (Manual) Seg Neutrophils # Seg Neutrophils # Man Lymphocytes # (Manual) Monocytes # (Manual) Eosinophils # (Manual) Basophils # (Manual) PT INR APTT ABG pH 7.459 H ABG pO2 ABG HCO3 34.2 H ABG O2 Saturation ABG Base Excess 9.4 H ABG Hemoglobin 7.6 L Oxyhemoglobin 94.8 L Sodium 152 H D 147 H Potassium 2.3 L* D 2.8 L* D Chloride 107.8 H Carbon Dioxide 31 H D 33 H BUN Creatinine 0.6 L 0.6 L Glucose 148 H 177 H POC Glucose Lactic Acid Calcium Ionized Calcium Phosphorus Magnesium Total Bilirubin AST 105 H ALT 71 H Alkaline Phosphatase 155 H Ammonia Total Creatine Kinase CK-MB (CK-2) CK-MB (CK-2) Rel Index Total Protein 5.2 L D Albumin 2.9 L Urine WBC (Auto) Vancomycin Trough Salicylates Acetaminophen Plasma/Serum Alcohol Crossmatch 11/26/19 11/26/19 11/27/19 08:24 08:24 04:20 WBC 12.0 H RBC 3.00 L Hgb 8.0 L 9.3 L Hct 25.9 L 29.7 L MCH 27 L RDW 18.5 H Plt Count Lymph % (Auto) [place] % (Auto) [place] # Baso # Seg Neutrophils % Seg Neuts % (Manual) 89.0 H Lymphocytes % (Manual) 4.0 L Monocytes % (Manual) Seg Neutrophils # Seg Neutrophils # Man 10.7 H Lymphocytes # (Manual) 0.5 L Monocytes # (Manual) Eosinophils # (Manual) Basophils # (Manual) PT INR APTT ABG pH ABG pO2 ABG HCO3 ABG O2 Saturation ABG Base Excess ABG Hemoglobin Oxyhemoglobin Sodium 146 H Potassium 3.4 L D Chloride Carbon Dioxide BUN Creatinine 0.5 L Glucose 165 H POC Glucose Lactic Acid Calcium Ionized Calcium Phosphorus Magnesium Total Bilirubin AST 57 H ALT Alkaline Phosphatase 166 H Ammonia Total Creatine Kinase CK-MB (CK-2) CK-MB (CK-2) Rel Index Total Protein Albumin 2.9 L Urine WBC (Auto) Vancomycin Trough Salicylates Acetaminophen Plasma/Serum Alcohol Crossmatch 11/27/19 11/27/19 11/27/19 04:28 04:28 04:42 WBC RBC Hgb Hct MCH RDW Plt Count Lymph % (Auto) [place] % (Auto) [place] # Baso # Seg Neutrophils % Seg Neuts % (Manual) Lymphocytes % (Manual) Monocytes % (Manual) Seg Neutrophils # Seg Neutrophils # Man Lymphocytes # (Manual) Monocytes # (Manual) Eosinophils # (Manual) Basophils # (Manual) PT INR APTT ABG pH 7.470 H ABG pO2 74.0 L ABG HCO3 33.8 H ABG O2 Saturation ABG Base Excess 9.1 H ABG Hemoglobin 8.7 L Oxyhemoglobin 94.7 L Sodium 146 H Potassium 2.9 L* Chloride Carbon Dioxide BUN 25 H Creatinine Glucose 213 H POC Glucose Lactic Acid Calcium Ionized Calcium Phosphorus 1.00 L Magnesium Total Bilirubin AST ALT Alkaline Phosphatase Ammonia Total Creatine Kinase CK-MB (CK-2) CK-MB (CK-2) Rel Index Total Protein Albumin Urine WBC (Auto) Vancomycin Trough Salicylates Acetaminophen Plasma/Serum Alcohol Crossmatch 11/27/19 11/27/19 11/27/19 05:37 12:20 15:46 WBC RBC Hgb Hct MCH RDW Plt Count Lymph % (Auto) [place] % (Auto) [place] # Baso # Seg Neutrophils % Seg Neuts % (Manual) Lymphocytes % (Manual) Monocytes % (Manual) Seg Neutrophils # Seg Neutrophils # Man Lymphocytes # (Manual) Monocytes # (Manual) Eosinophils # (Manual) Basophils # (Manual) PT INR APTT ABG pH ABG pO2 ABG HCO3 ABG O2 Saturation ABG Base Excess ABG Hemoglobin Oxyhemoglobin Sodium 146 H Potassium 3.5 L D Chloride Carbon Dioxide BUN 24 H Creatinine 0.6 L Glucose 187 H POC Glucose 117 H 220 H Lactic Acid Calcium Ionized Calcium Phosphorus Magnesium Total Bilirubin AST ALT Alkaline Phosphatase Ammonia Total Creatine Kinase CK-MB (CK-2) CK-MB (CK-2) Rel Index Total Protein Albumin Urine WBC (Auto) Vancomycin Trough Salicylates Acetaminophen Plasma/Serum Alcohol Crossmatch 11/27/19 11/28/19 11/28/19 17:28 05:00 05:02 WBC RBC Hgb Hct MCH RDW Plt Count Lymph % (Auto) [place] % (Auto) [place] # Baso # Seg Neutrophils % Seg Neuts % (Manual) Lymphocytes % (Manual) Monocytes % (Manual) Seg Neutrophils # Seg Neutrophils # Man Lymphocytes # (Manual) Monocytes # (Manual) Eosinophils # (Manual) Basophils # (Manual) PT INR APTT ABG pH ABG pO2 72.4 L ABG HCO3 33.6 H ABG O2 Saturation 94.1 L ABG Base Excess 7.3 H ABG Hemoglobin Oxyhemoglobin 91.8 L Sodium 146 H Potassium 3.3 L Chloride Carbon Dioxide BUN 25 H Creatinine 0.6 L Glucose 176 H POC Glucose 198 H Lactic Acid Calcium Ionized Calcium Phosphorus Magnesium Total Bilirubin AST ALT Alkaline Phosphatase Ammonia Total Creatine Kinase CK-MB (CK-2) CK-MB (CK-2) Rel Index Total Protein Albumin Urine WBC (Auto) Vancomycin Trough Salicylates Acetaminophen Plasma/Serum Alcohol Crossmatch 11/28/19 11/28/19 11/29/19 05:02 18:55 10:43 WBC 15.2 H 19.0 H RBC 3.06 L 3.01 L Hgb 8.3 L 8.3 L Hct 27.0 L 26.4 L MCH 27 L RDW 19.0 H 19.7 H Plt Count 479 H 611 H Lymph % (Auto) [place] % (Auto) [place] # Baso # Seg Neutrophils % Seg Neuts % (Manual) 92.0 H Lymphocytes % (Manual) 2.0 L Monocytes % (Manual) Seg Neutrophils # Seg Neutrophils # Man 14.0 H Lymphocytes # (Manual) 0.3 L Monocytes # (Manual) Eosinophils # (Manual) Basophils # (Manual) PT INR APTT ABG pH ABG pO2 ABG HCO3 ABG O2 Saturation ABG Base Excess ABG Hemoglobin Oxyhemoglobin Sodium Potassium Chloride Carbon Dioxide BUN Creatinine Glucose POC Glucose 138 H Lactic Acid Calcium Ionized Calcium Phosphorus Magnesium Total Bilirubin AST ALT Alkaline Phosphatase Ammonia Total Creatine Kinase CK-MB (CK-2) CK-MB (CK-2) Rel Index Total Protein Albumin Urine WBC (Auto) Vancomycin Trough Salicylates Acetaminophen Plasma/Serum Alcohol Crossmatch 11/29/19 11/29/19 11/29/19 10:43 12:27 19:25 WBC RBC Hgb Hct MCH RDW Plt Count Lymph % (Auto) [place] % (Auto) [place] # Baso # Seg Neutrophils % Seg Neuts % (Manual) Lymphocytes % (Manual) Monocytes % (Manual) Seg Neutrophils # Seg Neutrophils # Man Lymphocytes # (Manual) Monocytes # (Manual) Eosinophils # (Manual) Basophils # (Manual) PT INR APTT ABG pH ABG pO2 ABG HCO3 ABG O2 Saturation ABG Base Excess ABG Hemoglobin Oxyhemoglobin Sodium Potassium 2.8 L* Chloride Carbon Dioxide BUN 20 H Creatinine 0.5 L Glucose 121 H POC Glucose 128 H 120 H Lactic Acid Calcium Ionized Calcium Phosphorus Magnesium Total Bilirubin AST ALT Alkaline Phosphatase Ammonia Total Creatine Kinase CK-MB (CK-2) CK-MB (CK-2) Rel Index Total Protein Albumin Urine WBC (Auto) Vancomycin Trough Salicylates Acetaminophen Plasma/Serum Alcohol Crossmatch 11/29/19 11/30/19 11/30/19 23:46 04:10 05:02 WBC RBC Hgb Hct MCH RDW Plt Count Lymph % (Auto) [place] % (Auto) [place] # Baso # Seg Neutrophils % Seg Neuts % (Manual) Lymphocytes % (Manual) Monocytes % (Manual) Seg Neutrophils # Seg Neutrophils # Man Lymphocytes # (Manual) Monocytes # (Manual) Eosinophils # (Manual) Basophils # (Manual) PT INR APTT ABG pH ABG pO2 76.3 L ABG HCO3 32.5 H ABG O2 Saturation ABG Base Excess 6.9 H ABG Hemoglobin 8.0 L Oxyhemoglobin 92.6 L Sodium Potassium Chloride Carbon Dioxide BUN Creatinine Glucose POC Glucose 116 H 128 H Lactic Acid Calcium Ionized Calcium Phosphorus Magnesium Total Bilirubin AST ALT Alkaline Phosphatase Ammonia Total Creatine Kinase CK-MB (CK-2) CK-MB (CK-2) Rel Index Total Protein Albumin Urine WBC (Auto) Vancomycin Trough Salicylates Acetaminophen Plasma/Serum Alcohol Crossmatch 11/30/19 11/30/19 11/30/19 05:25 05:25 12:59 WBC 18.4 H RBC 3.10 L Hgb 8.5 L Hct 27.5 L MCH 27 L RDW 20.9 H Plt Count 691 H Lymph % (Auto) 7.1 L [place] % (Auto) 7.7 H [place] # 1.4 H Baso # Seg Neutrophils % 83.4 H Seg Neuts % (Manual) Lymphocytes % (Manual) Monocytes % (Manual) Seg Neutrophils # 15.4 H Seg Neutrophils # Man Lymphocytes # (Manual) Monocytes # (Manual) Eosinophils # (Manual) Basophils # (Manual) PT INR APTT ABG pH ABG pO2 ABG HCO3 ABG O2 Saturation ABG Base Excess ABG Hemoglobin Oxyhemoglobin Sodium 146 H Potassium Chloride 107.2 H Carbon Dioxide BUN Creatinine 0.5 L Glucose 132 H POC Glucose 124 H Lactic Acid Calcium Ionized Calcium Phosphorus Magnesium Total Bilirubin AST 246 H ALT 274 H Alkaline Phosphatase 203 H Ammonia Total Creatine Kinase CK-MB (CK-2) CK-MB (CK-2) Rel Index Total Protein 5.4 L Albumin 2.9 L Urine WBC (Auto) Vancomycin Trough Salicylates Acetaminophen Plasma/Serum Alcohol Crossmatch 11/30/19 12/01/19 12/01/19 17:53 00:05 05:10 WBC RBC Hgb Hct MCH RDW Plt Count Lymph % (Auto) [place] % (Auto) [place] # Baso # Seg Neutrophils % Seg Neuts % (Manual) Lymphocytes % (Manual) Monocytes % (Manual) Seg Neutrophils # Seg Neutrophils # Man Lymphocytes # (Manual) Monocytes # (Manual) Eosinophils # (Manual) Basophils # (Manual) PT INR APTT ABG pH ABG pO2 ABG HCO3 ABG O2 Saturation ABG Base Excess ABG Hemoglobin Oxyhemoglobin Sodium Potassium Chloride Carbon Dioxide BUN Creatinine Glucose POC Glucose 113 H 143 H 145 H Lactic Acid Calcium Ionized Calcium Phosphorus Magnesium Total Bilirubin AST ALT Alkaline Phosphatase Ammonia Total Creatine Kinase CK-MB (CK-2) CK-MB (CK-2) Rel Index Total Protein Albumin Urine WBC (Auto) Vancomycin Trough Salicylates Acetaminophen Plasma/Serum Alcohol Crossmatch 12/01/19 12/01/19 12/01/19 05:33 08:23 08:23 WBC 22.7 H RBC 2.88 L Hgb 7.9 L Hct 25.2 L MCH 27 L RDW 21.0 H Plt Count 732 H Lymph % (Auto) [place] % (Auto) [place] # Baso # Seg Neutrophils % Seg Neuts % (Manual) 91.0 H Lymphocytes % (Manual) 3.0 L Monocytes % (Manual) Seg Neutrophils # Seg Neutrophils # Man 20.7 H Lymphocytes # (Manual) 0.7 L Monocytes # (Manual) 1.1 H Eosinophils # (Manual) Basophils # (Manual) PT INR APTT ABG pH ABG pO2 68.6 L ABG HCO3 34.1 H ABG O2 Saturation ABG Base Excess 9.0 H ABG Hemoglobin 6.5 L Oxyhemoglobin 94.7 L Sodium Potassium Chloride Carbon Dioxide BUN Creatinine 0.5 L Glucose 125 H POC Glucose Lactic Acid Calcium Ionized Calcium Phosphorus Magnesium Total Bilirubin AST ALT Alkaline Phosphatase Ammonia Total Creatine Kinase CK-MB (CK-2) CK-MB (CK-2) Rel Index Total Protein Albumin Urine WBC (Auto) Vancomycin Trough Salicylates Acetaminophen Plasma/Serum Alcohol Crossmatch 12/01/19 12/01/19 12/01/19 13:21 17:54 20:59 WBC RBC Hgb Hct MCH RDW Plt Count Lymph % (Auto) [place] % (Auto) [place] # Baso # Seg Neutrophils % Seg Neuts % (Manual) Lymphocytes % (Manual) Monocytes % (Manual) Seg Neutrophils # Seg Neutrophils # Man Lymphocytes # (Manual) Monocytes # (Manual) Eosinophils # (Manual) Basophils # (Manual) PT INR APTT ABG pH ABG pO2 78.3 L ABG HCO3 33.8 H ABG O2 Saturation 94.9 L ABG Base Excess 7.9 H ABG Hemoglobin 11.5 L Oxyhemoglobin 92.3 L Sodium Potassium Chloride Carbon Dioxide BUN Creatinine Glucose POC Glucose 111 H 115 H Lactic Acid Calcium Ionized Calcium Phosphorus Magnesium Total Bilirubin AST ALT Alkaline Phosphatase Ammonia Total Creatine Kinase CK-MB (CK-2) CK-MB (CK-2) Rel Index Total Protein Albumin Urine WBC (Auto) Vancomycin Trough Salicylates Acetaminophen Plasma/Serum Alcohol Crossmatch 12/02/19 12/03/19 12/04/19 12:55 20:00 04:26 WBC 15.2 H RBC 2.69 L Hgb 7.4 L Hct 23.6 L MCH 27 L RDW 19.9 H Plt Count 838 H Lymph % (Auto) [place] % (Auto) [place] # Baso # Seg Neutrophils % Seg Neuts % (Manual) Lymphocytes % (Manual) Monocytes % (Manual) Seg Neutrophils # Seg Neutrophils # Man Lymphocytes # (Manual) Monocytes # (Manual) Eosinophils # (Manual) Basophils # (Manual) PT INR APTT ABG pH ABG pO2 68.3 L ABG HCO3 33.5 H ABG O2 Saturation 93.5 L ABG Base Excess 8.4 H ABG Hemoglobin 7.3 L Oxyhemoglobin 90.9 L Sodium Potassium Chloride Carbon Dioxide BUN Creatinine Glucose POC Glucose 107 H Lactic Acid Calcium Ionized Calcium Phosphorus Magnesium Total Bilirubin AST ALT Alkaline Phosphatase Ammonia Total Creatine Kinase CK-MB (CK-2) CK-MB (CK-2) Rel Index Total Protein Albumin Urine WBC (Auto) Vancomycin Trough Salicylates Acetaminophen Plasma/Serum Alcohol Crossmatch 12/04/19 12/04/19 12/04/19 04:26 07:45 12:02 WBC 15.9 H RBC 2.88 L Hgb 7.9 L Hct 25.1 L MCH RDW 20.4 H Plt Count 839 H Lymph % (Auto) 11.3 L [place] % (Auto) 15.2 H [place] # 2.4 H Baso # Seg Neutrophils % 72.4 H Seg Neuts % (Manual) Lymphocytes % (Manual) Monocytes % (Manual) Seg Neutrophils # 11.5 H Seg Neutrophils # Man Lymphocytes # (Manual) Monocytes # (Manual) Eosinophils # (Manual) Basophils # (Manual) PT INR APTT ABG pH ABG pO2 ABG HCO3 ABG O2 Saturation ABG Base Excess ABG Hemoglobin Oxyhemoglobin Sodium Potassium Chloride 96.5 L Carbon Dioxide BUN 21 H Creatinine 0.6 L Glucose 107 H POC Glucose 138 H Lactic Acid Calcium Ionized Calcium Phosphorus Magnesium Total Bilirubin AST ALT Alkaline Phosphatase Ammonia Total Creatine Kinase CK-MB (CK-2) CK-MB (CK-2) Rel Index Total Protein Albumin Urine WBC (Auto) Vancomycin Trough Salicylates Acetaminophen Plasma/Serum Alcohol Crossmatch 12/04/19 12/05/19 12/05/19 18:16 11:55 18:36 WBC RBC Hgb Hct MCH RDW Plt Count Lymph % (Auto) [place] % (Auto) [place] # Baso # Seg Neutrophils % Seg Neuts % (Manual) Lymphocytes % (Manual) Monocytes % (Manual) Seg Neutrophils # Seg Neutrophils # Man Lymphocytes # (Manual) Monocytes # (Manual) Eosinophils # (Manual) Basophils # (Manual) PT INR APTT ABG pH ABG pO2 ABG HCO3 ABG O2 Saturation ABG Base Excess ABG Hemoglobin Oxyhemoglobin Sodium Potassium Chloride Carbon Dioxide BUN Creatinine Glucose POC Glucose 135 H 125 H 135 H Lactic Acid Calcium Ionized Calcium Phosphorus Magnesium Total Bilirubin AST ALT Alkaline Phosphatase Ammonia Total Creatine Kinase CK-MB (CK-2) CK-MB (CK-2) Rel Index Total Protein Albumin Urine WBC (Auto) Vancomycin Trough Salicylates Acetaminophen Plasma/Serum Alcohol Crossmatch 12/05/19 12/06/19 12/06/19 23:30 04:14 05:43 WBC RBC Hgb Hct MCH RDW Plt Count Lymph % (Auto) [place] % (Auto) [place] # Baso # Seg Neutrophils % Seg Neuts % (Manual) Lymphocytes % (Manual) Monocytes % (Manual) Seg Neutrophils # Seg Neutrophils # Man Lymphocytes # (Manual) Monocytes # (Manual) Eosinophils # (Manual) Basophils # (Manual) PT INR APTT ABG pH ABG pO2 ABG HCO3 ABG O2 Saturation ABG Base Excess ABG Hemoglobin Oxyhemoglobin Sodium Potassium 5.6 H Chloride 95.0 L Carbon Dioxide BUN 48 H Creatinine 1.3 H D Glucose POC Glucose 126 H 121 H Lactic Acid Calcium Ionized Calcium Phosphorus Magnesium Total Bilirubin AST 89 H ALT 98 H Alkaline Phosphatase 476 H Ammonia Total Creatine Kinase CK-MB (CK-2) CK-MB (CK-2) Rel Index Total Protein Albumin 2.8 L Urine WBC (Auto) Vancomycin Trough Salicylates Acetaminophen Plasma/Serum Alcohol Crossmatch 12/06/19 12/06/19 12/07/19 10:39 14:34 00:19 WBC 17.3 H RBC 2.60 L Hgb 7.1 L Hct 22.7 L MCH 27 L RDW 20.1 H Plt Count 832 H Lymph % (Auto) [place] % (Auto) [place] # Baso # Seg Neutrophils % Seg Neuts % (Manual) Lymphocytes % (Manual) Monocytes % (Manual) Seg Neutrophils # Seg Neutrophils # Man Lymphocytes # (Manual) Monocytes # (Manual) Eosinophils # (Manual) Basophils # (Manual) PT INR APTT ABG pH ABG pO2 ABG HCO3 ABG O2 Saturation ABG Base Excess ABG Hemoglobin Oxyhemoglobin Sodium Potassium Chloride Carbon Dioxide BUN Creatinine Glucose POC Glucose 128 H 136 H Lactic Acid Calcium Ionized Calcium Phosphorus Magnesium Total Bilirubin AST ALT Alkaline Phosphatase Ammonia Total Creatine Kinase CK-MB (CK-2) CK-MB (CK-2) Rel Index Total Protein Albumin Urine WBC (Auto) Vancomycin Trough Salicylates Acetaminophen Plasma/Serum Alcohol Crossmatch 12/07/19 12/07/19 12/07/19 03:44 03:44 05:53 WBC 16.2 H RBC 2.56 L Hgb 7.1 L Hct 22.3 L MCH RDW 19.4 H Plt Count 782 H Lymph % (Auto) [place] % (Auto) [place] # Baso # Seg Neutrophils % Seg Neuts % (Manual) Lymphocytes % (Manual) Monocytes % (Manual) Seg Neutrophils # Seg Neutrophils # Man Lymphocytes # (Manual) Monocytes # (Manual) Eosinophils # (Manual) Basophils # (Manual) PT INR APTT ABG pH ABG pO2 ABG HCO3 ABG O2 Saturation ABG Base Excess ABG Hemoglobin Oxyhemoglobin Sodium Potassium Chloride 95.6 L Carbon Dioxide BUN 56 H Creatinine 1.4 H Glucose 120 H POC Glucose 128 H Lactic Acid Calcium 10.3 H Ionized Calcium Phosphorus Magnesium Total Bilirubin AST ALT Alkaline Phosphatase Ammonia Total Creatine Kinase CK-MB (CK-2) CK-MB (CK-2) Rel Index Total Protein Albumin Urine WBC (Auto) Vancomycin Trough Salicylates Acetaminophen Plasma/Serum Alcohol Crossmatch 12/07/19 12/07/19 12/08/19 12:54 23:47 00:20 WBC RBC Hgb Hct MCH RDW Plt Count Lymph % (Auto) [place] % (Auto) [place] # Baso # Seg Neutrophils % Seg Neuts % (Manual) Lymphocytes % (Manual) Monocytes % (Manual) Seg Neutrophils # Seg Neutrophils # Man Lymphocytes # (Manual) Monocytes # (Manual) Eosinophils # (Manual) Basophils # (Manual) PT INR APTT ABG pH ABG pO2 ABG HCO3 ABG O2 Saturation ABG Base Excess ABG Hemoglobin Oxyhemoglobin Sodium Potassium Chloride Carbon Dioxide BUN Creatinine Glucose POC Glucose 128 H 130 H 124 H Lactic Acid Calcium Ionized Calcium Phosphorus Magnesium Total Bilirubin AST ALT Alkaline Phosphatase Ammonia Total Creatine Kinase CK-MB (CK-2) CK-MB (CK-2) Rel Index Total Protein Albumin Urine WBC (Auto) Vancomycin Trough Salicylates Acetaminophen Plasma/Serum Alcohol Crossmatch 12/08/19 12/08/19 12/08/19 06:38 12:04 18:26 WBC RBC Hgb Hct MCH RDW Plt Count Lymph % (Auto) [place] % (Auto) [place] # Baso # Seg Neutrophils % Seg Neuts % (Manual) Lymphocytes % (Manual) Monocytes % (Manual) Seg Neutrophils # Seg Neutrophils # Man Lymphocytes # (Manual) Monocytes # (Manual) Eosinophils # (Manual) Basophils # (Manual) PT INR APTT ABG pH ABG pO2 ABG HCO3 ABG O2 Saturation ABG Base Excess ABG Hemoglobin Oxyhemoglobin Sodium Potassium Chloride Carbon Dioxide BUN Creatinine Glucose POC Glucose 137 H 129 H 150 H Lactic Acid Calcium Ionized Calcium Phosphorus Magnesium Total Bilirubin AST ALT Alkaline Phosphatase Ammonia Total Creatine Kinase CK-MB (CK-2) CK-MB (CK-2) Rel Index Total Protein Albumin Urine WBC (Auto) Vancomycin Trough Salicylates Acetaminophen Plasma/Serum Alcohol Crossmatch 12/09/19 12/09/19 12/09/19 00:56 05:34 06:13 WBC RBC Hgb Hct MCH RDW Plt Count Lymph % (Auto) [place] % (Auto) [place] # Baso # Seg Neutrophils % Seg Neuts % (Manual) Lymphocytes % (Manual) Monocytes % (Manual) Seg Neutrophils # Seg Neutrophils # Man Lymphocytes # (Manual) Monocytes # (Manual) Eosinophils # (Manual) Basophils # (Manual) PT INR APTT ABG pH ABG pO2 ABG HCO3 ABG O2 Saturation ABG Base Excess ABG Hemoglobin Oxyhemoglobin Sodium 146 H Potassium Chloride Carbon Dioxide BUN 66 H Creatinine 1.9 H Glucose 116 H POC Glucose 130 H 130 H Lactic Acid Calcium Ionized Calcium Phosphorus Magnesium Total Bilirubin AST ALT Alkaline Phosphatase Ammonia Total Creatine Kinase CK-MB (CK-2) CK-MB (CK-2) Rel Index Total Protein Albumin Urine WBC (Auto) Vancomycin Trough Salicylates Acetaminophen Plasma/Serum Alcohol Crossmatch 12/09/19 12/09/19 12/10/19 11:52 17:50 00:14 WBC RBC Hgb Hct MCH RDW Plt Count Lymph % (Auto) [place] % (Auto) [place] # Baso # Seg Neutrophils % Seg Neuts % (Manual) Lymphocytes % (Manual) Monocytes % (Manual) Seg Neutrophils # Seg Neutrophils # Man Lymphocytes # (Manual) Monocytes # (Manual) Eosinophils # (Manual) Basophils # (Manual) PT INR APTT ABG pH ABG pO2 ABG HCO3 ABG O2 Saturation ABG Base Excess ABG Hemoglobin Oxyhemoglobin Sodium Potassium Chloride Carbon Dioxide BUN Creatinine Glucose POC Glucose 135 H 120 H 116 H Lactic Acid Calcium Ionized Calcium Phosphorus Magnesium Total Bilirubin AST ALT Alkaline Phosphatase Ammonia Total Creatine Kinase CK-MB (CK-2) CK-MB (CK-2) Rel Index Total Protein Albumin Urine WBC (Auto) Vancomycin Trough Salicylates Acetaminophen Plasma/Serum Alcohol Crossmatch 12/10/19 12/10/19 12/10/19 05:38 11:38 17:34 WBC RBC Hgb Hct MCH RDW Plt Count Lymph % (Auto) [place] % (Auto) [place] # Baso # Seg Neutrophils % Seg Neuts % (Manual) Lymphocytes % (Manual) Monocytes % (Manual) Seg Neutrophils # Seg Neutrophils # Man Lymphocytes # (Manual) Monocytes # (Manual) Eosinophils # (Manual) Basophils # (Manual) PT INR APTT ABG pH ABG pO2 ABG HCO3 ABG O2 Saturation ABG Base Excess ABG Hemoglobin Oxyhemoglobin Sodium Potassium Chloride Carbon Dioxide BUN Creatinine Glucose POC Glucose 115 H 112 H 130 H Lactic Acid Calcium Ionized Calcium Phosphorus Magnesium Total Bilirubin AST ALT Alkaline Phosphatase Ammonia Total Creatine Kinase CK-MB (CK-2) CK-MB (CK-2) Rel Index Total Protein Albumin Urine WBC (Auto) Vancomycin Trough Salicylates Acetaminophen Plasma/Serum Alcohol Crossmatch 12/11/19 12/11/19 12/11/19 00:20 05:31 12:22 WBC RBC Hgb Hct MCH RDW Plt Count Lymph % (Auto) [place] % (Auto) [place] # Baso # Seg Neutrophils % Seg Neuts % (Manual) Lymphocytes % (Manual) Monocytes % (Manual) Seg Neutrophils # Seg Neutrophils # Man Lymphocytes # (Manual) Monocytes # (Manual) Eosinophils # (Manual) Basophils # (Manual) PT INR APTT ABG pH ABG pO2 ABG HCO3 ABG O2 Saturation ABG Base Excess ABG Hemoglobin Oxyhemoglobin Sodium Potassium Chloride Carbon Dioxide BUN Creatinine Glucose POC Glucose 124 H 132 H 128 H Lactic Acid Calcium Ionized Calcium Phosphorus Magnesium Total Bilirubin AST ALT Alkaline Phosphatase Ammonia Total Creatine Kinase CK-MB (CK-2) CK-MB (CK-2) Rel Index Total Protein Albumin Urine WBC (Auto) Vancomycin Trough Salicylates Acetaminophen Plasma/Serum Alcohol Crossmatch 12/11/19 12/11/19 12/12/19 18:04 23:42 03:51 WBC RBC Hgb Hct MCH RDW Plt Count Lymph % (Auto) [place] % (Auto) [place] # Baso # Seg Neutrophils % Seg Neuts % (Manual) Lymphocytes % (Manual) Monocytes % (Manual) Seg Neutrophils # Seg Neutrophils # Man Lymphocytes # (Manual) Monocytes # (Manual) Eosinophils # (Manual) Basophils # (Manual) PT INR APTT ABG pH ABG pO2 ABG HCO3 ABG O2 Saturation ABG Base Excess ABG Hemoglobin Oxyhemoglobin Sodium 149 H Potassium Chloride Carbon Dioxide 20 L D BUN 77 H Creatinine 2.8 H Glucose POC Glucose 133 H 154 H Lactic Acid Calcium Ionized Calcium Phosphorus Magnesium Total Bilirubin AST ALT Alkaline Phosphatase Ammonia Total Creatine Kinase CK-MB (CK-2) CK-MB (CK-2) Rel Index Total Protein Albumin Urine WBC (Auto) Vancomycin Trough Salicylates Acetaminophen Plasma/Serum Alcohol Crossmatch 12/12/19 12/12/19 12/12/19 05:18 05:26 10:30 WBC 18.0 H RBC 2.51 L Hgb 6.8 L Hct 22.0 L MCH 27 L RDW 19.9 H Plt Count 582 H Lymph % (Auto) [place] % (Auto) [place] # Baso # Seg Neutrophils % Seg Neuts % (Manual) Lymphocytes % (Manual) Monocytes % (Manual) Seg Neutrophils # Seg Neutrophils # Man Lymphocytes # (Manual) Monocytes # (Manual) Eosinophils # (Manual) Basophils # (Manual) PT INR APTT ABG pH ABG pO2 ABG HCO3 ABG O2 Saturation ABG Base Excess ABG Hemoglobin Oxyhemoglobin Sodium Potassium Chloride Carbon Dioxide BUN Creatinine Glucose POC Glucose 135 H Lactic Acid Calcium Ionized Calcium Phosphorus Magnesium Total Bilirubin AST ALT Alkaline Phosphatase Ammonia Total Creatine Kinase CK-MB (CK-2) CK-MB (CK-2) Rel Index Total Protein Albumin Urine WBC (Auto) Vancomycin Trough Salicylates Acetaminophen Plasma/Serum Alcohol Crossmatch See Detail 12/12/19 12/12/19 12/12/19 11:44 18:10 23:21 WBC RBC Hgb Hct MCH RDW Plt Count Lymph % (Auto) [place] % (Auto) [place] # Baso # Seg Neutrophils % Seg Neuts % (Manual) Lymphocytes % (Manual) Monocytes % (Manual) Seg Neutrophils # Seg Neutrophils # Man Lymphocytes # (Manual) Monocytes # (Manual) Eosinophils # (Manual) Basophils # (Manual) PT INR APTT ABG pH ABG pO2 ABG HCO3 ABG O2 Saturation ABG Base Excess ABG Hemoglobin Oxyhemoglobin Sodium Potassium Chloride Carbon Dioxide BUN Creatinine Glucose POC Glucose 108 H 107 H 126 H Lactic Acid Calcium Ionized Calcium Phosphorus Magnesium Total Bilirubin AST ALT Alkaline Phosphatase Ammonia Total Creatine Kinase CK-MB (CK-2) CK-MB (CK-2) Rel Index Total Protein Albumin Urine WBC (Auto) Vancomycin Trough Salicylates Acetaminophen Plasma/Serum Alcohol Crossmatch 12/13/19 12/13/19 12/13/19 05:41 07:48 07:48 WBC 38.3 H RBC 2.37 L Hgb 6.3 L Hct 20.9 L MCH 27 L RDW 20.2 H Plt Count 546 H Lymph % (Auto) [place] % (Auto) [place] # Baso # Seg Neutrophils % Seg Neuts % (Manual) 93.0 H Lymphocytes % (Manual) 1.0 L Monocytes % (Manual) Seg Neutrophils # Seg Neutrophils # Man 35.6 H Lymphocytes # (Manual) 0.4 L Monocytes # (Manual) Eosinophils # (Manual) Basophils # (Manual) 0.4 H PT INR APTT ABG pH ABG pO2 ABG HCO3 ABG O2 Saturation ABG Base Excess ABG Hemoglobin Oxyhemoglobin Sodium 152 H Potassium 3.1 L D Chloride 111.9 H Carbon Dioxide 21 L BUN 53 H Creatinine 1.9 H Glucose 141 H POC Glucose 128 H Lactic Acid Calcium Ionized Calcium Phosphorus Magnesium Total Bilirubin AST ALT Alkaline Phosphatase 316 H Ammonia Total Creatine Kinase CK-MB (CK-2) CK-MB (CK-2) Rel Index Total Protein Albumin 2.4 L Urine WBC (Auto) Vancomycin Trough Salicylates Acetaminophen Plasma/Serum Alcohol Crossmatch 12/13/19 12/13/19 12/14/19 18:17 23:19 05:36 WBC RBC Hgb Hct MCH RDW Plt Count Lymph % (Auto) [place] % (Auto) [place] # Baso # Seg Neutrophils % Seg Neuts % (Manual) Lymphocytes % (Manual) Monocytes % (Manual) Seg Neutrophils # Seg Neutrophils # Man Lymphocytes # (Manual) Monocytes # (Manual) Eosinophils # (Manual) Basophils # (Manual) PT INR APTT ABG pH ABG pO2 ABG HCO3 ABG O2 Saturation ABG Base Excess ABG Hemoglobin Oxyhemoglobin Sodium Potassium Chloride Carbon Dioxide BUN Creatinine Glucose POC Glucose 141 H 158 H 182 H Lactic Acid Calcium Ionized Calcium Phosphorus Magnesium Total Bilirubin AST ALT Alkaline Phosphatase Ammonia Total Creatine Kinase CK-MB (CK-2) CK-MB (CK-2) Rel Index Total Protein Albumin Urine WBC (Auto) Vancomycin Trough Salicylates Acetaminophen Plasma/Serum Alcohol Crossmatch 12/14/19 12/14/19 12/14/19 08:48 08:48 10:31 WBC 33.3 H RBC 2.70 L Hgb 7.9 L 8.0 L Hct 25.3 L 24.0 L MCH RDW 19.2 H Plt Count 476 H Lymph % (Auto) [place] % (Auto) [place] # Baso # Seg Neutrophils % Seg Neuts % (Manual) Lymphocytes % (Manual) Monocytes % (Manual) Seg Neutrophils # Seg Neutrophils # Man Lymphocytes # (Manual) Monocytes # (Manual) Eosinophils # (Manual) Basophils # (Manual) PT INR APTT ABG pH ABG pO2 ABG HCO3 ABG O2 Saturation ABG Base Excess ABG Hemoglobin Oxyhemoglobin Sodium 153 H Potassium 2.5 L* Chloride 114.9 H Carbon Dioxide 20 L BUN 38 H Creatinine 1.4 H Glucose 177 H POC Glucose Lactic Acid Calcium Ionized Calcium Phosphorus Magnesium Total Bilirubin AST ALT Alkaline Phosphatase Ammonia Total Creatine Kinase CK-MB (CK-2) CK-MB (CK-2) Rel Index Total Protein Albumin Urine WBC (Auto) Vancomycin Trough Salicylates Acetaminophen Plasma/Serum Alcohol Crossmatch 12/14/19 12/14/19 12/14/19 12:57 16:15 17:50 WBC RBC Hgb Hct MCH RDW Plt Count Lymph % (Auto) [place] % (Auto) [place] # Baso # Seg Neutrophils % Seg Neuts % (Manual) Lymphocytes % (Manual) Monocytes % (Manual) Seg Neutrophils # Seg Neutrophils # Man Lymphocytes # (Manual) Monocytes # (Manual) Eosinophils # (Manual) Basophils # (Manual) PT INR APTT ABG pH ABG pO2 73.6 L ABG HCO3 ABG O2 Saturation ABG Base Excess ABG Hemoglobin 7.6 L Oxyhemoglobin 94.0 L Sodium Potassium Chloride Carbon Dioxide BUN Creatinine Glucose POC Glucose 174 H 150 H Lactic Acid Calcium Ionized Calcium Phosphorus Magnesium Total Bilirubin AST ALT Alkaline Phosphatase Ammonia Total Creatine Kinase CK-MB (CK-2) CK-MB (CK-2) Rel Index Total Protein Albumin Urine WBC (Auto) Vancomycin Trough Salicylates Acetaminophen Plasma/Serum Alcohol Crossmatch 12/15/19 12/15/19 12/15/19 00:28 05:27 07:23 WBC 30.0 H RBC 3.11 L Hgb 8.6 L Hct 27.7 L MCH RDW 20.0 H Plt Count 473 H Lymph % (Auto) [place] % (Auto) [place] # Baso # Seg Neutrophils % Seg Neuts % (Manual) Lymphocytes % (Manual) Monocytes % (Manual) Seg Neutrophils # Seg Neutrophils # Man Lymphocytes # (Manual) Monocytes # (Manual) Eosinophils # (Manual) Basophils # (Manual) PT INR APTT ABG pH ABG pO2 ABG HCO3 ABG O2 Saturation ABG Base Excess ABG Hemoglobin Oxyhemoglobin Sodium Potassium Chloride Carbon Dioxide BUN Creatinine Glucose POC Glucose 167 H 148 H Lactic Acid Calcium Ionized Calcium Phosphorus Magnesium Total Bilirubin AST ALT Alkaline Phosphatase Ammonia Total Creatine Kinase CK-MB (CK-2) CK-MB (CK-2) Rel Index Total Protein Albumin Urine WBC (Auto) Vancomycin Trough Salicylates Acetaminophen Plasma/Serum Alcohol Crossmatch 12/15/19 12/15/19 12/15/19 07:23 12:21 17:41 WBC RBC Hgb Hct MCH RDW Plt Count Lymph % (Auto) [place] % (Auto) [place] # Baso # Seg Neutrophils % Seg Neuts % (Manual) Lymphocytes % (Manual) Monocytes % (Manual) Seg Neutrophils # Seg Neutrophils # Man Lymphocytes # (Manual) Monocytes # (Manual) Eosinophils # (Manual) Basophils # (Manual) PT INR APTT ABG pH ABG pO2 ABG HCO3 ABG O2 Saturation ABG Base Excess ABG Hemoglobin Oxyhemoglobin Sodium 147 H Potassium 3.5 L D Chloride 111.2 H Carbon Dioxide 19 L BUN 29 H Creatinine Glucose 126 H POC Glucose 154 H 144 H Lactic Acid Calcium Ionized Calcium Phosphorus Magnesium Total Bilirubin AST ALT Alkaline Phosphatase Ammonia Total Creatine Kinase CK-MB (CK-2) CK-MB (CK-2) Rel Index Total Protein Albumin Urine WBC (Auto) Vancomycin Trough Salicylates Acetaminophen Plasma/Serum Alcohol Crossmatch 12/16/19 12/16/19 12/16/19 00:22 05:30 05:44 WBC 30.8 H RBC 2.58 L Hgb 7.1 L Hct 22.7 L MCH RDW 19.6 H Plt Count 451 H Lymph % (Auto) [place] % (Auto) [place] # Baso # Seg Neutrophils % Seg Neuts % (Manual) Lymphocytes % (Manual) Monocytes % (Manual) Seg Neutrophils # Seg Neutrophils # Man Lymphocytes # (Manual) Monocytes # (Manual) Eosinophils # (Manual) Basophils # (Manual) PT INR APTT ABG pH ABG pO2 ABG HCO3 ABG O2 Saturation ABG Base Excess ABG Hemoglobin Oxyhemoglobin Sodium Potassium Chloride Carbon Dioxide BUN Creatinine Glucose POC Glucose 139 H 126 H Lactic Acid Calcium Ionized Calcium Phosphorus Magnesium Total Bilirubin AST ALT Alkaline Phosphatase Ammonia Total Creatine Kinase CK-MB (CK-2) CK-MB (CK-2) Rel Index Total Protein Albumin Urine WBC (Auto) Vancomycin Trough Salicylates Acetaminophen Plasma/Serum Alcohol Crossmatch 12/16/19 12/16/19 12/16/19 05:44 11:48 17:37 WBC RBC Hgb Hct MCH RDW Plt Count Lymph % (Auto) [place] % (Auto) [place] # Baso # Seg Neutrophils % Seg Neuts % (Manual) Lymphocytes % (Manual) Monocytes % (Manual) Seg Neutrophils # Seg Neutrophils # Man Lymphocytes # (Manual) Monocytes # (Manual) Eosinophils # (Manual) Basophils # (Manual) PT INR APTT ABG pH ABG pO2 ABG HCO3 ABG O2 Saturation ABG Base Excess ABG Hemoglobin Oxyhemoglobin Sodium Potassium 3.4 L Chloride 109.2 H Carbon Dioxide 19 L BUN 27 H Creatinine Glucose 124 H POC Glucose 125 H 148 H Lactic Acid Calcium Ionized Calcium Phosphorus Magnesium Total Bilirubin AST ALT Alkaline Phosphatase Ammonia Total Creatine Kinase CK-MB (CK-2) CK-MB (CK-2) Rel Index Total Protein Albumin Urine WBC (Auto) Vancomycin Trough Salicylates Acetaminophen Plasma/Serum Alcohol Crossmatch 12/16/19 12/17/19 12/17/19 23:43 05:28 12:47 WBC RBC Hgb Hct MCH RDW Plt Count Lymph % (Auto) [place] % (Auto) [place] # Baso # Seg Neutrophils % Seg Neuts % (Manual) Lymphocytes % (Manual) Monocytes % (Manual) Seg Neutrophils # Seg Neutrophils # Man Lymphocytes # (Manual) Monocytes # (Manual) Eosinophils # (Manual) Basophils # (Manual) PT INR APTT ABG pH ABG pO2 ABG HCO3 ABG O2 Saturation ABG Base Excess ABG Hemoglobin Oxyhemoglobin Sodium Potassium Chloride Carbon Dioxide BUN Creatinine Glucose POC Glucose 142 H 140 H 125 H Lactic Acid Calcium Ionized Calcium Phosphorus Magnesium Total Bilirubin AST ALT Alkaline Phosphatase Ammonia Total Creatine Kinase CK-MB (CK-2) CK-MB (CK-2) Rel Index Total Protein Albumin Urine WBC (Auto) Vancomycin Trough Salicylates Acetaminophen Plasma/Serum Alcohol Crossmatch 12/17/19 12/17/19 12/17/19 17:05 18:00 Unknown WBC RBC Hgb Hct MCH RDW Plt Count Lymph % (Auto) [place] % (Auto) [place] # Baso # Seg Neutrophils % Seg Neuts % (Manual) Lymphocytes % (Manual) Monocytes % (Manual) Seg Neutrophils # Seg Neutrophils # Man Lymphocytes # (Manual) Monocytes # (Manual) Eosinophils # (Manual) Basophils # (Manual) PT INR APTT ABG pH ABG pO2 68.1 L ABG HCO3 ABG O2 Saturation 93.7 L ABG Base Excess ABG Hemoglobin 5.0 L Oxyhemoglobin 91.7 L Sodium Potassium Chloride Carbon Dioxide BUN Creatinine Glucose POC Glucose 140 H Lactic Acid Calcium Ionized Calcium Phosphorus Magnesium Total Bilirubin AST ALT Alkaline Phosphatase Ammonia Total Creatine Kinase CK-MB (CK-2) CK-MB (CK-2) Rel Index Total Protein Albumin Urine WBC (Auto) Vancomycin Trough Salicylates Acetaminophen Plasma/Serum Alcohol Crossmatch 12/18/19 12/18/19 12/18/19 00:16 04:53 04:53 WBC 28.6 H RBC 2.27 L Hgb 6.3 L Hct 19.5 L* MCH RDW 20.0 H Plt Count 497 H Lymph % (Auto) [place] % (Auto) [place] # Baso # Seg Neutrophils % Seg Neuts % (Manual) Lymphocytes % (Manual) Monocytes % (Manual) Seg Neutrophils # Seg Neutrophils # Man Lymphocytes # (Manual) Monocytes # (Manual) Eosinophils # (Manual) Basophils # (Manual) PT INR APTT ABG pH ABG pO2 ABG HCO3 ABG O2 Saturation ABG Base Excess ABG Hemoglobin Oxyhemoglobin Sodium Potassium Chloride 107.9 H Carbon Dioxide 20 L BUN 27 H Creatinine 0.6 L Glucose 116 H POC Glucose 123 H Lactic Acid Calcium Ionized Calcium Phosphorus Magnesium Total Bilirubin AST ALT Alkaline Phosphatase Ammonia Total Creatine Kinase CK-MB (CK-2) CK-MB (CK-2) Rel Index Total Protein Albumin Urine WBC (Auto) Vancomycin Trough Salicylates Acetaminophen Plasma/Serum Alcohol Crossmatch 12/18/19 12/18/19 12/18/19 06:38 11:22 12:08 WBC RBC Hgb Hct MCH RDW Plt Count Lymph % (Auto) [place] % (Auto) [place] # Baso # Seg Neutrophils % Seg Neuts % (Manual) Lymphocytes % (Manual) Monocytes % (Manual) Seg Neutrophils # Seg Neutrophils # Man Lymphocytes # (Manual) Monocytes # (Manual) Eosinophils # (Manual) Basophils # (Manual) PT INR APTT ABG pH ABG pO2 ABG HCO3 ABG O2 Saturation ABG Base Excess ABG Hemoglobin Oxyhemoglobin Sodium Potassium Chloride Carbon Dioxide BUN Creatinine Glucose POC Glucose 120 H 127 H Lactic Acid Calcium Ionized Calcium Phosphorus Magnesium Total Bilirubin AST ALT Alkaline Phosphatase Ammonia Total Creatine Kinase CK-MB (CK-2) CK-MB (CK-2) Rel Index Total Protein Albumin Urine WBC (Auto) Vancomycin Trough Salicylates Acetaminophen Plasma/Serum Alcohol Crossmatch See Detail 12/18/19 12/18/19 12/18/19 14:05 17:49 23:53 WBC RBC Hgb Hct MCH RDW Plt Count Lymph % (Auto) [place] % (Auto) [place] # Baso # Seg Neutrophils % Seg Neuts % (Manual) Lymphocytes % (Manual) Monocytes % (Manual) Seg Neutrophils # Seg Neutrophils # Man Lymphocytes # (Manual) Monocytes # (Manual) Eosinophils # (Manual) Basophils # (Manual) PT INR APTT ABG pH 7.267 L ABG pO2 69.8 L ABG HCO3 ABG O2 Saturation 88.4 L ABG Base Excess ABG Hemoglobin 7.1 L Oxyhemoglobin 86.4 L Sodium Potassium Chloride Carbon Dioxide BUN Creatinine Glucose POC Glucose 157 H 128 H Lactic Acid Calcium Ionized Calcium Phosphorus Magnesium Total Bilirubin AST ALT Alkaline Phosphatase Ammonia Total Creatine Kinase CK-MB (CK-2) CK-MB (CK-2) Rel Index Total Protein Albumin Urine WBC (Auto) Vancomycin Trough Salicylates Acetaminophen Plasma/Serum Alcohol Crossmatch 04/01/20 04/01/20 04/01/20 03:37 03:37 05:25 WBC 31.3 H RBC 2.60 L Hgb 7.6 L Hct 23.0 L MCH RDW 19.4 H Plt Count 530 H Lymph % (Auto) [place] % (Auto) [place] # Baso # Seg Neutrophils % Seg Neuts % (Manual) Lymphocytes % (Manual) Monocytes % (Manual) Seg Neutrophils # Seg Neutrophils # Man Lymphocytes # (Manual) Monocytes # (Manual) Eosinophils # (Manual) Basophils # (Manual) PT INR APTT ABG pH ABG pO2 ABG HCO3 ABG O2 Saturation ABG Base Excess ABG Hemoglobin Oxyhemoglobin Sodium Potassium Chloride Carbon Dioxide 18 L BUN 36 H Creatinine Glucose 111 H POC Glucose 123 H Lactic Acid Calcium Ionized Calcium Phosphorus Magnesium Total Bilirubin AST ALT Alkaline Phosphatase Ammonia Total Creatine Kinase CK-MB (CK-2) CK-MB (CK-2) Rel Index Total Protein Albumin Urine WBC (Auto) Vancomycin Trough Salicylates Acetaminophen Plasma/Serum Alcohol Crossmatch 12/19/19 12/19/19 12/20/19 12:59 18:33 00:00 WBC RBC Hgb Hct MCH RDW Plt Count Lymph % (Auto) [place] % (Auto) [place] # Baso # Seg Neutrophils % Seg Neuts % (Manual) Lymphocytes % (Manual) Monocytes % (Manual) Seg Neutrophils # Seg Neutrophils # Man Lymphocytes # (Manual) Monocytes # (Manual) Eosinophils # (Manual) Basophils # (Manual) PT INR APTT ABG pH ABG pO2 ABG HCO3 ABG O2 Saturation ABG Base Excess ABG Hemoglobin Oxyhemoglobin Sodium Potassium Chloride Carbon Dioxide BUN Creatinine Glucose POC Glucose 130 H 118 H 135 H Lactic Acid Calcium Ionized Calcium Phosphorus Magnesium Total Bilirubin AST ALT Alkaline Phosphatase Ammonia Total Creatine Kinase CK-MB (CK-2) CK-MB (CK-2) Rel Index Total Protein Albumin Urine WBC (Auto) Vancomycin Trough Salicylates Acetaminophen Plasma/Serum Alcohol Crossmatch 12/20/19 12/20/19 12/20/19 05:46 12:31 18:07 WBC RBC Hgb Hct MCH RDW Plt Count Lymph % (Auto) [place] % (Auto) [place] # Baso # Seg Neutrophils % Seg Neuts % (Manual) Lymphocytes % (Manual) Monocytes % (Manual) Seg Neutrophils # Seg Neutrophils # Man Lymphocytes # (Manual) Monocytes # (Manual) Eosinophils # (Manual) Basophils # (Manual) PT INR APTT ABG pH ABG pO2 ABG HCO3 ABG O2 Saturation ABG Base Excess ABG Hemoglobin Oxyhemoglobin Sodium Potassium Chloride Carbon Dioxide BUN Creatinine Glucose POC Glucose 131 H 128 H 134 H Lactic Acid Calcium Ionized Calcium Phosphorus Magnesium Total Bilirubin AST ALT Alkaline Phosphatase Ammonia Total Creatine Kinase CK-MB (CK-2) CK-MB (CK-2) Rel Index Total Protein Albumin Urine WBC (Auto) Vancomycin Trough Salicylates Acetaminophen Plasma/Serum Alcohol Crossmatch 12/21/19 12/21/19 12/21/19 03:28 03:28 07:21 WBC 29.4 H RBC 2.30 L Hgb 6.8 L Hct 20.2 L MCH RDW 20.2 H Plt Count 746 H Lymph % (Auto) [place] % (Auto) [place] # Baso # Seg Neutrophils % Seg Neuts % (Manual) 85.0 H Lymphocytes % (Manual) 8.0 L Monocytes % (Manual) Seg Neutrophils # Seg Neutrophils # Man 25.0 H Lymphocytes # (Manual) Monocytes # (Manual) 1.5 H Eosinophils # (Manual) 0.6 H Basophils # (Manual) PT INR APTT ABG pH ABG pO2 ABG HCO3 ABG O2 Saturation ABG Base Excess ABG Hemoglobin Oxyhemoglobin Sodium Potassium Chloride Carbon Dioxide 17 L BUN 57 H Creatinine 1.4 H D Glucose POC Glucose 124 H Lactic Acid Calcium Ionized Calcium Phosphorus Magnesium Total Bilirubin AST ALT Alkaline Phosphatase Ammonia Total Creatine Kinase CK-MB (CK-2) CK-MB (CK-2) Rel Index Total Protein Albumin Urine WBC (Auto) Vancomycin Trough Salicylates Acetaminophen Plasma/Serum Alcohol Crossmatch 12/21/19 12/21/19 12/21/19 08:56 12:06 14:53 WBC RBC Hgb 7.2 L Hct 22.9 L MCH RDW Plt Count Lymph % (Auto) [place] % (Auto) [place] # Baso # Seg Neutrophils % Seg Neuts % (Manual) Lymphocytes % (Manual) Monocytes % (Manual) Seg Neutrophils # Seg Neutrophils # Man Lymphocytes # (Manual) Monocytes # (Manual) Eosinophils # (Manual) Basophils # (Manual) PT INR APTT ABG pH ABG pO2 ABG HCO3 ABG O2 Saturation ABG Base Excess ABG Hemoglobin Oxyhemoglobin Sodium Potassium Chloride Carbon Dioxide BUN Creatinine Glucose POC Glucose 116 H Lactic Acid Calcium Ionized Calcium Phosphorus Magnesium Total Bilirubin AST ALT Alkaline Phosphatase Ammonia Total Creatine Kinase CK-MB (CK-2) CK-MB (CK-2) Rel Index Total Protein Albumin Urine WBC (Auto) Vancomycin Trough 33.8 H Salicylates Acetaminophen Plasma/Serum Alcohol Crossmatch 12/21/19 12/21/19 12/21/19 14:54 17:27 23:49 WBC RBC Hgb Hct MCH RDW Plt Count Lymph % (Auto) [place] % (Auto) [place] # Baso # Seg Neutrophils % Seg Neuts % (Manual) Lymphocytes % (Manual) Monocytes % (Manual) Seg Neutrophils # Seg Neutrophils # Man Lymphocytes # (Manual) Monocytes # (Manual) Eosinophils # (Manual) Basophils # (Manual) PT INR APTT ABG pH ABG pO2 ABG HCO3 ABG O2 Saturation ABG Base Excess ABG Hemoglobin Oxyhemoglobin Sodium Potassium Chloride Carbon Dioxide BUN Creatinine Glucose POC Glucose 145 H 127 H Lactic Acid Calcium Ionized Calcium Phosphorus Magnesium Total Bilirubin AST ALT Alkaline Phosphatase Ammonia Total Creatine Kinase CK-MB (CK-2) CK-MB (CK-2) Rel Index Total Protein Albumin Urine WBC (Auto) Vancomycin Trough Salicylates Acetaminophen Plasma/Serum Alcohol Crossmatch See Detail 12/22/19 12/22/19 12/22/19 04:43 05:56 08:40 WBC RBC Hgb Hct MCH RDW Plt Count Lymph % (Auto) [place] % (Auto) [place] # Baso # Seg Neutrophils % Seg Neuts % (Manual) Lymphocytes % (Manual) Monocytes % (Manual) Seg Neutrophils # Seg Neutrophils # Man Lymphocytes # (Manual) Monocytes # (Manual) Eosinophils # (Manual) Basophils # (Manual) PT INR APTT ABG pH ABG pO2 75.6 L ABG HCO3 ABG O2 Saturation ABG Base Excess -2.6 L ABG Hemoglobin 6.8 L Oxyhemoglobin 94.6 L Sodium Potassium Chloride Carbon Dioxide 17 L BUN 60 H Creatinine 1.4 H Glucose 126 H POC Glucose 153 H Lactic Acid Calcium Ionized Calcium Phosphorus Magnesium Total Bilirubin AST ALT Alkaline Phosphatase Ammonia Total Creatine Kinase CK-MB (CK-2) CK-MB (CK-2) Rel Index Total Protein Albumin Urine WBC (Auto) Vancomycin Trough Salicylates Acetaminophen Plasma/Serum Alcohol Crossmatch 12/22/19 12/22/19 12/23/19 12:07 17:49 04:30 WBC 22.4 H RBC 2.68 L Hgb 7.6 L Hct 22.9 L MCH RDW 19.9 H Plt Count 998 H Lymph % (Auto) [place] % (Auto) [place] # Baso # Seg Neutrophils % Seg Neuts % (Manual) 88.0 H Lymphocytes % (Manual) 2.0 L Monocytes % (Manual) 9.0 H Seg Neutrophils # Seg Neutrophils # Man 19.7 H Lymphocytes # (Manual) 0.4 L Monocytes # (Manual) 2.0 H Eosinophils # (Manual) Basophils # (Manual) PT INR APTT ABG pH ABG pO2 ABG HCO3 ABG O2 Saturation ABG Base Excess ABG Hemoglobin Oxyhemoglobin Sodium Potassium Chloride Carbon Dioxide BUN Creatinine Glucose POC Glucose 140 H 116 H Lactic Acid Calcium Ionized Calcium Phosphorus Magnesium Total Bilirubin AST ALT Alkaline Phosphatase Ammonia Total Creatine Kinase CK-MB (CK-2) CK-MB (CK-2) Rel Index Total Protein Albumin Urine WBC (Auto) Vancomycin Trough Salicylates Acetaminophen Plasma/Serum Alcohol Crossmatch 12/23/19 12/23/19 12/23/19 04:30 12:00 18:06 WBC RBC Hgb Hct MCH RDW Plt Count Lymph % (Auto) [place] % (Auto) [place] # Baso # Seg Neutrophils % Seg Neuts % (Manual) Lymphocytes % (Manual) Monocytes % (Manual) Seg Neutrophils # Seg Neutrophils # Man Lymphocytes # (Manual) Monocytes # (Manual) Eosinophils # (Manual) Basophils # (Manual) PT INR APTT ABG pH ABG pO2 ABG HCO3 ABG O2 Saturation ABG Base Excess ABG Hemoglobin Oxyhemoglobin Sodium Potassium 5.2 H Chloride Carbon Dioxide 21 L BUN 69 H Creatinine 1.5 H Glucose 117 H POC Glucose 128 H 138 H Lactic Acid Calcium Ionized Calcium Phosphorus Magnesium Total Bilirubin AST ALT Alkaline Phosphatase Ammonia Total Creatine Kinase CK-MB (CK-2) CK-MB (CK-2) Rel Index Total Protein Albumin Urine WBC (Auto) Vancomycin Trough Salicylates Acetaminophen Plasma/Serum Alcohol Crossmatch 12/23/19 12/24/19 12/24/19 23:46 04:31 05:08 WBC RBC Hgb Hct MCH RDW Plt Count Lymph % (Auto) [place] % (Auto) [place] # Baso # Seg Neutrophils % Seg Neuts % (Manual) Lymphocytes % (Manual) Monocytes % (Manual) Seg Neutrophils # Seg Neutrophils # Man Lymphocytes # (Manual) Monocytes # (Manual) Eosinophils # (Manual) Basophils # (Manual) PT INR APTT ABG pH ABG pO2 ABG HCO3 ABG O2 Saturation ABG Base Excess ABG Hemoglobin Oxyhemoglobin Sodium Potassium 5.3 H Chloride 107.6 H Carbon Dioxide 20 L BUN 72 H Creatinine 1.6 H Glucose 120 H POC Glucose 120 H 140 H Lactic Acid Calcium Ionized Calcium Phosphorus Magnesium Total Bilirubin AST ALT Alkaline Phosphatase Ammonia Total Creatine Kinase CK-MB (CK-2) CK-MB (CK-2) Rel Index Total Protein Albumin Urine WBC (Auto) Vancomycin Trough Salicylates Acetaminophen Plasma/Serum Alcohol Crossmatch 12/24/19 12/24/19 12/25/19 11:58 17:49 03:47 WBC 36.2 H RBC 2.92 L Hgb 8.4 L Hct 26.1 L MCH RDW 20.2 H Plt Count 942 H Lymph % (Auto) [place] % (Auto) [place] # Baso # Seg Neutrophils % Seg Neuts % (Manual) 97.5 H Lymphocytes % (Manual) 1.0 L Monocytes % (Manual) Seg Neutrophils # Seg Neutrophils # Man 35.3 H Lymphocytes # (Manual) 0.4 L Monocytes # (Manual) Eosinophils # (Manual) Basophils # (Manual) PT INR APTT ABG pH ABG pO2 ABG HCO3 ABG O2 Saturation ABG Base Excess ABG Hemoglobin Oxyhemoglobin Sodium Potassium Chloride Carbon Dioxide BUN Creatinine Glucose POC Glucose 146 H 131 H Lactic Acid Calcium Ionized Calcium Phosphorus Magnesium Total Bilirubin AST ALT Alkaline Phosphatase Ammonia Total Creatine Kinase CK-MB (CK-2) CK-MB (CK-2) Rel Index Total Protein Albumin Urine WBC (Auto) Vancomycin Trough Salicylates Acetaminophen Plasma/Serum Alcohol Crossmatch 12/25/19 12/25/19 12/25/19 03:47 05:30 12:23 WBC RBC Hgb Hct MCH RDW Plt Count Lymph % (Auto) [place] % (Auto) [place] # Baso # Seg Neutrophils % Seg Neuts % (Manual) Lymphocytes % (Manual) Monocytes % (Manual) Seg Neutrophils # Seg Neutrophils # Man Lymphocytes # (Manual) Monocytes # (Manual) Eosinophils # (Manual) Basophils # (Manual) PT INR APTT ABG pH ABG pO2 ABG HCO3 ABG O2 Saturation ABG Base Excess ABG Hemoglobin Oxyhemoglobin Sodium Potassium Chloride Carbon Dioxide 15 L BUN 70 H Creatinine 1.7 H Glucose 153 H POC Glucose 169 H 135 H Lactic Acid Calcium Ionized Calcium Phosphorus Magnesium Total Bilirubin AST ALT Alkaline Phosphatase Ammonia Total Creatine Kinase CK-MB (CK-2) CK-MB (CK-2) Rel Index Total Protein Albumin Urine WBC (Auto) Vancomycin Trough Salicylates Acetaminophen Plasma/Serum Alcohol Crossmatch 12/25/19 12/25/19 12/26/19 17:37 23:29 09:47 WBC 22.1 H RBC 2.83 L Hgb 7.9 L Hct 25.5 L MCH RDW 20.0 H Plt Count 894 H Lymph % (Auto) [place] % (Auto) [place] # Baso # Seg Neutrophils % Seg Neuts % (Manual) Lymphocytes % (Manual) Monocytes % (Manual) Seg Neutrophils # Seg Neutrophils # Man Lymphocytes # (Manual) Monocytes # (Manual) Eosinophils # (Manual) Basophils # (Manual) PT INR APTT ABG pH ABG pO2 ABG HCO3 ABG O2 Saturation ABG Base Excess ABG Hemoglobin Oxyhemoglobin Sodium Potassium Chloride Carbon Dioxide BUN Creatinine Glucose POC Glucose 120 H 140 H Lactic Acid Calcium Ionized Calcium Phosphorus Magnesium Total Bilirubin AST ALT Alkaline Phosphatase Ammonia Total Creatine Kinase CK-MB (CK-2) CK-MB (CK-2) Rel Index Total Protein Albumin Urine WBC (Auto) Vancomycin Trough Salicylates Acetaminophen Plasma/Serum Alcohol Crossmatch 12/26/19 12/26/19 12/26/19 09:47 11:46 17:52 WBC RBC Hgb Hct MCH RDW Plt Count Lymph % (Auto) [place] % (Auto) [place] # Baso # Seg Neutrophils % Seg Neuts % (Manual) Lymphocytes % (Manual) Monocytes % (Manual) Seg Neutrophils # Seg Neutrophils # Man Lymphocytes # (Manual) Monocytes # (Manual) Eosinophils # (Manual) Basophils # (Manual) PT INR APTT ABG pH ABG pO2 ABG HCO3 ABG O2 Saturation ABG Base Excess ABG Hemoglobin Oxyhemoglobin Sodium Potassium Chloride Carbon Dioxide 18 L BUN 65 H Creatinine 1.4 H Glucose 132 H POC Glucose 110 H 145 H Lactic Acid Calcium Ionized Calcium Phosphorus Magnesium Total Bilirubin AST ALT Alkaline Phosphatase Ammonia Total Creatine Kinase CK-MB (CK-2) CK-MB (CK-2) Rel Index Total Protein Albumin Urine WBC (Auto) Vancomycin Trough Salicylates Acetaminophen Plasma/Serum Alcohol Crossmatch 12/27/19 12/27/19 12/27/19 00:01 03:42 03:42 WBC 18.0 H RBC 2.86 L Hgb 8.0 L Hct 25.2 L MCH RDW 19.2 H Plt Count 873 H Lymph % (Auto) 8.4 L [place] % (Auto) 7.5 H [place] # 1.4 H Baso # 0.2 H Seg Neutrophils % 82.2 H Seg Neuts % (Manual) Lymphocytes % (Manual) Monocytes % (Manual) Seg Neutrophils # 14.8 H Seg Neutrophils # Man Lymphocytes # (Manual) Monocytes # (Manual) Eosinophils # (Manual) Basophils # (Manual) PT INR APTT ABG pH ABG pO2 ABG HCO3 ABG O2 Saturation ABG Base Excess ABG Hemoglobin Oxyhemoglobin Sodium Potassium Chloride Carbon Dioxide BUN 73 H Creatinine 1.4 H Glucose 119 H POC Glucose 124 H Lactic Acid Calcium Ionized Calcium Phosphorus Magnesium Total Bilirubin AST ALT Alkaline Phosphatase Ammonia Total Creatine Kinase CK-MB (CK-2) CK-MB (CK-2) Rel Index Total Protein Albumin Urine WBC (Auto) Vancomycin Trough Salicylates Acetaminophen Plasma/Serum Alcohol Crossmatch 12/27/19 12/27/19 12/27/19 05:45 11:45 17:29 WBC RBC Hgb Hct MCH RDW Plt Count Lymph % (Auto) [place] % (Auto) [place] # Baso # Seg Neutrophils % Seg Neuts % (Manual) Lymphocytes % (Manual) Monocytes % (Manual) Seg Neutrophils # Seg Neutrophils # Man Lymphocytes # (Manual) Monocytes # (Manual) Eosinophils # (Manual) Basophils # (Manual) PT INR APTT ABG pH ABG pO2 ABG HCO3 ABG O2 Saturation ABG Base Excess ABG Hemoglobin Oxyhemoglobin Sodium Potassium Chloride Carbon Dioxide BUN Creatinine Glucose POC Glucose 131 H 123 H 134 H Lactic Acid Calcium Ionized Calcium Phosphorus Magnesium Total Bilirubin AST ALT Alkaline Phosphatase Ammonia Total Creatine Kinase CK-MB (CK-2) CK-MB (CK-2) Rel Index Total Protein Albumin Urine WBC (Auto) Vancomycin Trough Salicylates Acetaminophen Plasma/Serum Alcohol Crossmatch 12/28/19 12/28/19 00:12 05:14 WBC RBC Hgb Hct MCH RDW Plt Count Lymph % (Auto) [place] % (Auto) [place] # Baso # Seg Neutrophils % Seg Neuts % (Manual) Lymphocytes % (Manual) Monocytes % (Manual) Seg Neutrophils # Seg Neutrophils # Man Lymphocytes # (Manual) Monocytes # (Manual) Eosinophils # (Manual) Basophils # (Manual) PT INR APTT ABG pH ABG pO2 ABG HCO3 ABG O2 Saturation ABG Base Excess ABG Hemoglobin Oxyhemoglobin Sodium Potassium Chloride Carbon Dioxide BUN Creatinine Glucose POC Glucose 138 H 130 H Lactic Acid Calcium Ionized Calcium Phosphorus Magnesium Total Bilirubin AST ALT Alkaline Phosphatase Ammonia Total Creatine Kinase CK-MB (CK-2) CK-MB (CK-2) Rel Index Total Protein Albumin Urine WBC (Auto) Vancomycin Trough Salicylates Acetaminophen Plasma/Serum Alcohol Crossmatch Allied health notes reviewed: nursing
[2019-12-28] MEDS: QUEtiapine 100 MG TAB PO SCH (22:16)
[2019-12-29] MEDS: metroNIDAZOLE 500 MG TAB PO SCH ×3 (06:17→22:07)
[2019-12-29] MEDS: GLYCOPYRROLATE 1 MG TAB PO SCH ×3 (08:44→22:07)
[2019-12-29] MEDS: LANSOPRAZOLE 30 MG SOLUTAB FEEDTUBE SCH ×2 (08:56→09:06)
[2019-12-29] MEDS: QUEtiapine 200 MG TAB PO SCH ×2 (08:56→09:00)
[2019-12-29] MEDS: SERTRALINE 25 MG TAB PO SCH ×3 (08:57→09:06)
[2019-12-29] MEDS: TAMSULOSIN 0.4 MG CAP PO SCH ×2 (08:57→09:05)
[2019-12-29] MEDS: MIRTAZAPINE 30 MG TAB PO SCH ×2 (08:57→09:06)
[2019-12-29] MEDS: levETIRAcetam 500 MG/5 ML ORAL LIQD PO SCH ×3 (08:58→22:07)
[2019-12-29] MEDS: hydrOXYzine PAMOATE 25 MG CAP PO SCH ×2 (09:06→22:07)
--- NOTE | 2019-12-29 10:30 | Progress Note ---
Assessment and Plan Assessment and plan: Patient is a 54-year-old woman with a history of Hypertension, Depression, tobacco and alcohol dependency who presented to [facility] ED on 11/22/2019 due to cardiac arrest outside of the hospital. EMS found pt in PEA. Upon their arrival patient in sinus tachycardia. EMS were unable to intubate patient with a ET tube because she was clenching down therefore Joe airway placed per records. Patient received Narcan and Epinephrine. Patient's rhythm changed to PEA to sinus bradycardia, to PEA, then to sinus tach after receiving Narcan and Epinephrine. Per the ED physician who evaluated pt, Patient presented with a pulse, intermittent respirations, and bagging support via Joe airway with O2 sat of 100%. Accu-Chek of 71 obtained by EMS Status post cardiac arrest, etiology unknown Acute respiratory failure with hypoxia s/p Intubation via ETT >96 hours: Trach and PEG planned, CCM following Acute cystitis with Sepsis, not sure POA, treated with antibiotics and this completed a few days 11/29/2019 ago no growth was noted on cultures no fever. We will continue off antibiotics at this time. Seizure disorder: treat with Keppra Presumed anoxic brain injury: Neurology is following Alcohol abuse: CIWA protocol Acute metabolic encephalopathy/toxic encephalopathy due to the above BHAVANA secondary to vasomotor nephropathy: treat with IVF Hypertension: watch bp closely, prn IV antihypertensives prn Distended abdomen: treat with NGT to suction Transaminitis with Ischemic hepatitis Metabolic acidosis/alcoholic acidosis/lactic acidosis H. Influenzae, tracheobronchitis Hypernatremia: free water and monitor bmp closely >DNR DVT ppx: held sq heparin due to drop in h/h and anemia 12/04-: Patient failed CPAP trial became apneic according to documentation. No clinical change, continue current management, monitor H/H Awaiting labs. No new changes at this time opens eyes. Surgeon discussed trach and PEG with family but they want to get more information about hospice which they have been directed to the returned case inspector. Patient overnight had a episode of vomiting. Zofran started. 12/11/19: I took over patient care on day 18, Patient remains intubated, daily weaning trails. Trach and PEG planned once family consents. Mother is Anh Jesus @ [phone]. CCT 31 minutes 12/12/19: transfuse PRBC, s/p trach and PEG 12/13/19: Trach and PEG done, New fevers today, suspected Aspiration Pneumonitis vs Atelectasis; get blood cultures and empirically treat with ABX, levaquin/flagyl IV combo. Renewed restraints. ARF improved drastically as Cr went from 2.8 to 1.9 overnigh. however, WBC skyrocketed to 38.3k from 18k. Will repeat bmp and cbc, CCT 33 minutes 12/14/19: WBC improved slightly, potassium 2.5, renal function continue to improve. replete potassium, still febrile, re-consulted ID; give free water flushes via PEG. Dispo: aggressive wean and once off vent will have to discharge home, no insurance. 12/15/19: Still on MV Peep 6 fiO2 50%, ordered AM labs, renewed restraints. Right arm swollen, get Venous doppler-not done today due to COVID-19-->tomorrow 12/16/19: still on MV, PEEP 6 FiO2 30%, replete potassium, renewed restraints, give Tylenol of fevers (first real temp >100.4 since 12/14/19), green-culture, get CXR, UA. Venous doppler done and negative for DVT 12/17/19: Day 24 on MV, PEEP 6 FiO2 30%, trying to wean, held sq heparin due to drop in h/h and anemia, renewed restraints, fever appears to be due to worsening pneumonia, UA negative, pCXR Impression: Slight interval worsening of a consolidative opacity in the left mid to lower lung, worrisome for pneumonia in the appropriate clinical setting. Adjust Vancomycin dose continue cefepime with ID following. Swollen right arm with Venous doppler of right arm r/o DVT ordered but not done due to COVID-19, 12/25/19: Resumed care, Hospice discussed yesterday, will follow up. WBC increased to 36.4k, hgb steady at 8.4, +FOBT, Cr creeping up at 1.7 12/26/19: I called Jeremy Anh Jesus ([phone]) and she asked if I could call her back. Patient remains in PVS (persistent vegetative state) with poor prognosis, doesn't really need restraints, still needing Mechanical Ventilation/Life support. Not sedated Possible withdraw today, I called Dr. Naik. I called and d/w mother, she wants to come and withdraw daughter from [facility] tomorrow evening around 6-7pm 12/27/19: still poor prognosis, still in PVS, anticipate Withdrawal today==>d/w Dr. Aldana and he would prefer withdrawal at Hospice facility, d/w mother multiple times, I waited until 7pm to met but they came shortly after. The did sign the DNR form. 12/28/19: still poor prognosis, does not restraints, hopefully to Hospice inpatient Patient has been on MV/life support for 35 days, I not sure she is weanable, d/w Dr. Hernandez 12/29/19: still poor prognosis, still Intubated but not sedated, will grimace now, no purposeful movement. CPAP trial today, trying to wean. History Interval history: Patient was seen and examined. Follow-up on current diagnosis of Respiratory failure. Overnight uneventful as no events directly reported to me. Imaging, nursing note, chart, labs and old chart reviewed. PUI?: No COVID19: Negative Hospitalist Physical - Physical exam Narrative exam: Gen: critical ill, intubated, unresponsive not on sedation HEENT: ETT in place Neck: supple, no adenopathy, no thyromegaly, no JVD CVS/Heart: Regular Tachycardia, normal S1S2, pulses present bilaterally Chest/Lungs: CTA B, Symmetrical chest expansion, good air entry bilaterally GI/Abdomen: soft, NTND, good bowel sounds, no guarding or rebound MSK: right arm swollen Neuro: doesnt follow commands Psych: not responding - Constitutional Vitals: Temp Pulse Resp BP Pulse Ox 98.9 F 109 H 20 135/90 97 12/29/19 03:51 12/29/19 08:00 12/29/19 08:00 12/29/19 08:00 12/29/19 08:27 General appearance: Present: no acute distress, other (on vent with sedation) Results - Labs CBC & Chem 7: 12/27/19 03:42 12/27/19 03:42 Labs: Laboratory Last Values WBC 18.0 K/mm3 (4.5-11.0) H 12/27/19 03:42 RBC 2.86 M/mm3 (3.65-5.03) L 12/27/19 03:42 Hgb 8.0 gm/dl (10.1-14.3) L 12/27/19 03:42 Hct 25.2 % (30.3-42.9) L 12/27/19 03:42 MCV 88 fl (79-97) 12/27/19 03:42 MCH 28 pg (28-32) 12/27/19 03:42 MCHC 32 % (30-34) 12/27/19 03:42 RDW 19.2 % (13.2-15.2) H 12/27/19 03:42 Plt Count 873 K/mm3 (140-440) H 12/27/19 03:42 Lymph % (Auto) 8.4 % (13.4-35.0) L 12/27/19 03:42 [place] % (Auto) 7.5 % (0.0-7.3) H 12/27/19 03:42 Eos % (Auto) 1.0 % (0.0-4.3) 12/27/19 03:42 Baso % (Auto) 0.9 % (0.0-1.8) 12/27/19 03:42 Lymph # 1.5 K/mm3 (1.2-5.4) 12/27/19 03:42 [place] # 1.4 K/mm3 (0.0-0.8) H 12/27/19 03:42 Eos # 0.2 K/mm3 (0.0-0.4) 12/27/19 03:42 Baso # 0.2 K/mm3 (0.0-0.1) H 12/27/19 03:42 Add Manual Diff Complete 12/25/19 03:47 Total Counted 200 12/25/19 03:47 Seg Neutrophils % 82.2 % (40.0-70.0) H 12/27/19 03:42 Seg Neuts % (Manual) 97.5 % (40.0-70.0) H 12/25/19 03:47 Band Neutrophils % 0 % 12/25/19 03:47 Lymphocytes % (Manual) 1.0 % (13.4-35.0) L 12/25/19 03:47 Reactive Lymphs % (Man) 0 % 12/25/19 03:47 Monocytes % (Manual) 1.5 % (0.0-7.3) 12/25/19 03:47 Eosinophils % (Manual) 0 % (0.0-4.3) 12/25/19 03:47 Basophils % (Manual) 0 % (0.0-1.8) 12/25/19 03:47 Metamyelocytes % 0 % 12/25/19 03:47 Myelocytes % 0 % 12/25/19 03:47 Promyelocytes % 0 % 12/25/19 03:47 Blast Cells % 0 % 12/25/19 03:47 Nucleated RBC % Not Reportable 12/25/19 03:47 Seg Neutrophils # 14.8 K/mm3 (1.8-7.7) H 12/27/19 03:42 Seg Neutrophils # Man 35.3 K/mm3 (1.8-7.7) H 12/25/19 03:47 Band Neutrophils # 0.0 K/mm3 12/25/19 03:47 Lymphocytes # (Manual) 0.4 K/mm3 (1.2-5.4) L 12/25/19 03:47 Abs React Lymphs (Man) 0.0 K/mm3 12/25/19 03:47 Monocytes # (Manual) 0.5 K/mm3 (0.0-0.8) 12/25/19 03:47 Eosinophils # (Manual) 0.0 K/mm3 (0.0-0.4) 12/25/19 03:47 Basophils # (Manual) 0.0 K/mm3 (0.0-0.1) 12/25/19 03:47 Metamyelocytes # 0.0 K/mm3 12/25/19 03:47 Myelocytes # 0.0 K/mm3 12/25/19 03:47 Promyelocytes # 0.0 K/mm3 12/25/19 03:47 Blast Cells # 0.0 K/mm3 12/25/19 03:47 Pathologist Review 12/13/19 07:48 WBC Morphology Not Reportable 12/25/19 03:47 Hypersegmented Neuts Not Reportable 12/25/19 03:47 Hyposegmented Neuts Not Reportable 12/25/19 03:47 Hypogranular Neuts Not Reportable 12/25/19 03:47 Smudge Cells Not Reportable 12/25/19 03:47 Toxic Granulation Not Reportable 12/25/19 03:47 Toxic Vacuolation Not Reportable 12/25/19 03:47 Dohle Bodies Not Reportable 12/25/19 03:47 Pelger-Huet Anomaly Not Reportable 12/25/19 03:47 Dominique Rods Not Reportable 12/25/19 03:47 Platelet Estimate Consistent w auto 12/25/19 03:47 Clumped Platelets Not Reportable 12/25/19 03:47 Plt Clumps, EDTA Not Reportable 12/25/19 03:47 Large Platelets Not Reportable 12/25/19 03:47 Giant Platelets Not Reportable 12/25/19 03:47 Platelet Satelliting Not Reportable 12/25/19 03:47 Plt Morphology Comment Not Reportable 12/25/19 03:47 RBC Morphology Not Reportable 12/25/19 03:47 Dimorphic RBCs Not Reportable 12/25/19 03:47 Polychromasia Not Reportable 12/25/19 03:47 Hypochromasia Not Reportable 12/25/19 03:47 Poikilocytosis Not Reportable 12/25/19 03:47 Anisocytosis 1+ 12/25/19 03:47 Microcytosis Not Reportable 12/25/19 03:47 Macrocytosis Not Reportable 12/25/19 03:47 Spherocytes Not Reportable 12/25/19 03:47 Pappenheimer Bodies Not Reportable 12/25/19 03:47 Sickle Cells Not Reportable 12/25/19 03:47 Target Cells Not Reportable 12/25/19 03:47 Tear Drop Cells Not Reportable 12/25/19 03:47 Ovalocytes Not Reportable 12/25/19 03:47 Helmet Cells Not Reportable 12/25/19 03:47 [place] Bodies Not Reportable 12/25/19 03:47 [place] Rings Not Reportable 12/25/19 03:47 [place] Cells Not Reportable 12/25/19 03:47 Bite Cells Not Reportable 12/25/19 03:47 Crenated Cell Not Reportable 12/25/19 03:47 Elliptocytes Not Reportable 12/25/19 03:47 Acanthocytes (Spur) Not Reportable 12/25/19 03:47 Rouleaux Not Reportable 12/25/19 03:47 Hemoglobin C Crystals Not Reportable 12/25/19 03:47 Schistocytes Not Reportable 12/25/19 03:47 Malaria parasites Not Reportable 12/25/19 03:47 [place] Bodies Not Reportable 12/25/19 03:47 Hem Pathologist Commnt No 12/25/19 03:47 PT 17.0 Sec. (12.2-14.9) H 11/23/19 03:47 INR 1.36 (0.87-1.13) H 11/23/19 03:47 APTT 128.2 Sec. (24.2-36.6) H* 11/23/19 03:47 Heparin Anti-Xa Level 0.31 U.I./ml (0.3-0.7) 11/23/19 09:03 ABG pH 7.389 pH Units (7.350-7.450) 12/22/19 08:40 ABG pCO2 37.5 mm Hg 12/22/19 08:40 ABG pO2 75.6 mm Hg (80.0-90.0) L 12/22/19 08:40 ABG HCO3 22.1 mmol/L (20.0-26.0) 12/22/19 08:40 ABG O2 Saturation 96.7 % (95.0-99.0) 12/22/19 08:40 ABG O2 Content 9.1 (0.0-44) 12/22/19 08:40 ABG Base Excess -2.6 mmol/L (-2.0-3.0) L 12/22/19 08:40 ABG Hemoglobin 6.8 gm/dl (12.0-16.0) L 12/22/19 08:40 ABG Carboxyhemoglobin 1.8 % (0.0-5.0) 12/22/19 08:40 ABG Methemoglobin 0.3 % (0.0-1.5) 12/22/19 08:40 Oxyhemoglobin 94.6 % (95.0-99.0) L 12/22/19 08:40 FiO2 30 % 12/22/19 08:40 Sodium 143 mmol/L (137-145) 12/27/19 03:42 Potassium 4.3 mmol/L (3.6-5.0) 12/27/19 03:42 Chloride 105.8 mmol/L (98-107) 12/27/19 03:42 Carbon Dioxide 23 mmol/L (22-30) 12/27/19 03:42 Anion Gap 19 mmol/L 12/27/19 03:42 BUN 73 mg/dL (7-17) H 12/27/19 03:42 Creatinine 1.4 mg/dL (0.7-1.2) H 12/27/19 03:42 Estimated GFR 47 ml/min 12/27/19 03:42 BUN/Creatinine Ratio 52 % 12/27/19 03:42 Glucose 119 mg/dL (65-100) H 12/27/19 03:42 POC Glucose 97 (70-105) 12/29/19 05:39 Lactic Acid 1.80 mmol/L (0.7-2.0) 11/25/19 05:05 Calcium 9.5 mg/dL (8.4-10.2) 12/27/19 03:42 Ionized Calcium 4.5 mg/dL (4.8-5.6) L 11/23/19 06:32 Phosphorus 4.20 mg/dL (2.5-4.5) D 11/28/19 08:59 Magnesium 2.30 mg/dL (1.7-2.3) 11/29/19 13:41 Total Bilirubin 0.40 mg/dL (0.1-1.2) 12/13/19 07:48 AST 27 units/L (5-40) 12/13/19 07:48 ALT 26 units/L (7-56) 12/13/19 07:48 Alkaline Phosphatase 316 units/L (35-129) H 12/13/19 07:48 Ammonia 42.0 umol/L (25-60) 11/29/19 13:41 Total Creatine Kinase 139 units/L (30-135) H 11/22/19 23:27 CK-MB (CK-2) 8.3 ng/mL (0.0-4.0) H 11/22/19 23:27 CK-MB (CK-2) Rel Index 5.9 (0-4) H 11/22/19 23:27 Troponin T < 0.010 ng/mL (0.00-0.029) 11/22/19 23:27 Total Protein 6.8 g/dL (6.3-8.2) 12/13/19 07:48 Albumin 2.4 g/dL (3.9-5) L 12/13/19 07:48 Albumin/Globulin Ratio 0.5 % 12/13/19 07:48 Lipase 18 units/L (13-60) 11/23/19 00:34 Procalcitonin 1.09 ng/mL (<0.15) 11/23/19 04:53 Urine Color Yellow (Yellow) 12/16/19 Unknown Urine Turbidity Slightly-cloudy (Clear) 12/16/19 Unknown Urine pH 5.0 (5.0-7.0) 12/16/19 Unknown Ur Specific [place] 1.018 (1.003-1.030) 12/16/19 Unknown Urine Protein 30 mg/dl mg/dL (Negative) 12/16/19 Unknown Urine Glucose (UA) Neg mg/dL (Negative) 12/16/19 Unknown Urine Ketones Neg mg/dL (Negative) 12/16/19 Unknown Urine Blood Sm (Negative) 12/16/19 Unknown Urine Nitrite Neg (Negative) 12/16/19 Unknown Urine Bilirubin Neg (Negative) 12/16/19 Unknown Urine Urobilinogen < 2.0 mg/dL (<2.0) 12/16/19 Unknown Ur Leukocyte Esterase Neg (Negative) 12/16/19 Unknown Urine WBC (Auto) 6.0 /HPF (0.0-6.0) 12/16/19 Unknown Urine RBC (Auto) 9.0 /HPF (0.0-6.0) 12/16/19 Unknown U Epithel Cells (Auto) < 1.0 /HPF (0-13.0) 12/16/19 Unknown Urine Bacteria (Auto) 2+ /HPF (Negative) 11/22/19 23:17 Hyaline Casts 3 /LPF 12/16/19 Unknown Granular Casts 3 /LPF 12/16/19 Unknown Urine Mucus Few /HPF 12/16/19 Unknown Vancomycin Trough 33.8 ug/mL (5.0-20.0) H 12/21/19 08:56 Random Vancomycin 16.2 ug/mL (0-40.0) 12/24/19 04:31 Salicylates < 0.3 mg/dL (2.8-20.0) L 11/22/19 23:27 Urine Opiates Screen Presumptive negative 11/22/19 23:17 Urine Methadone Screen Presumptive negative 11/22/19 23:17 Acetaminophen < 5.0 ug/mL (10.0-30.0) L 11/22/19 23:27 Ur Barbiturates Screen Presumptive negative 11/22/19 23:17 Ur Phencyclidine Scrn Presumptive negative 11/22/19 23:17 Ur Amphetamines Screen Presumptive negative 11/22/19 23:17 U Benzodiazepines Scrn Presumptive negative 11/22/19 23:17 Urine Cocaine Screen Presumptive negative 11/22/19 23:17 U Marijuana (THC) Screen Presumptive negative 11/22/19 23:17 Drugs of Abuse Note Disclamer 11/22/19 23:17 Plasma/Serum Alcohol 0.08 % (0-0.07) H 11/22/19 23:27 Hepatitis A IgM Ab Non-reactive (NonReactive) 11/23/19 01:19 Hep Bs Antigen Non-reactive (Negative) 11/23/19 01:19 Hep B Core IgM Ab Non-reactive (NonReactive) 11/23/19 01:19 Hepatitis C Antibody Non-reactive (NonReactive) 11/23/19 01:19 Blood Type O POSITIVE 12/21/19 14:54 Antibody Screen Negative 12/21/19 14:54 Crossmatch See Detail 12/21/19 14:54 - Diagnostic Impressions Diagnostic Impressions: Echocardiogram 11/23/19 03:58 Transthoracic Echocardiogram Indication: Cardiac arrest BP: 131/89 HR: 115 Conclusions *The study quality is technically difficult. *Global left ventricular wall motion and contractility are within normal limits. *The estimated ejection fraction is 55-60%. *Abnormal left ventricular diastolic filling is observed, consistent with impaired relaxation. *There is no pericardial effusion. Findings Procedure Info: The study quality is technically difficult. The study was technically limited due to the patient's inability to lay in the left lateral decubitus position. Left Ventricle: The left ventricular chamber size is normal. There is no left ventricular hypertrophy. Global left ventricular wall motion and contractility are within normal limits. Global left ventricular systolic function is normal. The estimated ejection fraction is 55-60%. Abnormal left ventricular diastolic filling is observed, consistent with impaired relaxation. Left Atrium: The left atrial chamber size is normal. Aortic Valve: The aortic valve leaflets are mildly thickened. Mitral Valve: The mitral valve leaflets are mildly thickened. There is no evidence of mitral regurgitation. Tricuspid Valve: The tricuspid valve leaflets are normal. There is trace tricuspid regurgitation. The right ventricular systolic pressure is calculated at 33 mmHg. Pulmonic Valve: The pulmonic valve appears normal. Pericardium: The pericardium appears normal. There is no pericardial effusion. Aorta: The aorta appears normal. Venous: The inferior vena cava appears normal in size. Measurements Chambers 2D Name Value Normal Range IVSd (2D) 0.94 cm (0.6 - 1.1) LVPWd (2D) 0.81 cm (0.6 - 1.1) LVIDd (2D) 3.6 cm (3.7 - 5.6) LVIDs (2D) 2.27 cm (2 - 3.8) LV FS (2D) 36.93 % - EF Teichholz (2D) 67.76 % - Ao root diameter (2D) 3.03 cm (2 - 3.7) Volumes/Mass Name Value Normal Range LA ESV SP 4CH (A/L) 16.89 ml - LA ESV SP 4CH (MOD) 15.52 ml - Diastolic/Systolic Function Name Value Normal Range MV E-wave Vmax 0.55 m/sec - MV deceleration time 200.89 msec - MV A-wave Vmax 0.68 m/sec - MV E:A ratio 0.82 ratio - Aortic Valve Name Value Normal Range AV Vmax 1.1 m/sec - AV VTI 15.9 cm - AV peak gradient 4.86 mmHg - AV mean gradient 2.59 mmHg - LVOT diameter 2 cm - LVOT Vmax 1.03 m/sec - LVOT VTI 15.87 cm - LVOT peak gradient 4.24 mmHg - LVOT mean gradient 2.41 mmHg - SV LVOT 49.77 ml - JOSÉ MIGUEL (continuity Vmax) 2.93 cm2 - JOSÉ MIGUEL (continuity VTI) 3.13 cm2 - Tricuspid Valve Name Value Normal Range TR Vmax 2.74 m/sec - TR peak gradient 303 mmHg - RAP 3 mmHg - RVSP 33 mmHg - IVC diameter 1.77 cm (1.2 - 2.3) Pulmonic Valve/Qp:Qs Name Value Normal Range PV Vmax 0.77 m/sec - PV peak gradient 2.4 mmHg - PV acceleration time 114.18 msec - Echocardiogram Limited Views 12/17/19 14:53 Transthoracic Echocardiogram Indication: R/O Vegetations BP: 144/83 HR: 133 Conclusions *Global left ventricular systolic function is mildly decreased. *The estimated ejection fraction is 45-50%. *A trivial pericardial effusion is visualized. Findings Left Ventricle: The left ventricular chamber size is normal. Global left ventricular systolic function is mildly decreased. The estimated ejection fraction is 45-50%. Left Atrium: The left atrial chamber size is normal. Right Ventricle: The right ventricular cavity size is normal. Right Atrium: The right atrial cavity size is normal. Aortic Valve: The aortic valve is not well visualized. There is no evidence of aortic regurgitation. Mitral Valve: The mitral valve leaflets are mildly thickened. There is trace of mitral regurgitation. Tricuspid Valve: The tricuspid valve leaflets are mildly thickened. There is trace tricuspid regurgitation. The right ventricular systolic pressure is calculated at 29 mmHg. Pulmonic Valve: The pulmonic valve is not well visualized. There is no evidence of pulmonic regurgitation. Pericardium: A trivial pericardial effusion is visualized. Aorta: There is no dilatation of the ascending aorta. There is no dilatation of the aortic root. Venous: The inferior vena cava appears normal in size. There is a greater than 50% respiratory change in the inferior vena cava dimension. Measurements Chambers 2D Name Value Normal Range IVSd (2D) 0.83 cm (0.6 - 1.1) LVPWd (2D) 0.98 cm (0.6 - 1.1) LVIDd (2D) 3.71 cm (3.7 - 5.6) LVIDs (2D) 2.93 cm (2 - 3.8) LV FS (2D) 21.12 % - EF Teichholz (2D) 43.71 % - Ao root diameter (2D) 3.02 cm (2 - 3.7) Volumes/Mass Name Value Normal Range LA ESV SP 4CH (A/L) 36.8 ml - LA ESV SP 2CH (A/L) 45.89 ml - LA ESV BP (A/L) 42.35 ml - LA ESV BP (A/L) index 26.63 ml/m2 - LA ESV SP 4CH (MOD) 34.42 ml - LA ESV SP 2CH (MOD) 44.21 ml - LA ESV BP (MOD) 39.82 ml - LA ESV BP (MOD) index 25.05 ml/m2 - Aortic Valve Name Value Normal Range LVOT diameter 1.63 cm - Tricuspid Valve Name Value Normal Range TR Vmax 2.56 m/sec - TR peak gradient 26 mmHg - RAP 3 mmHg - RVSP 29 mmHg - IVC diameter 1.83 cm (1.2 - 2.3) [place]/IV: Voiding Method Indwelling Catheter IV Catheter Type [Forearm] Peripheral IV IV Catheter Type [Left Forearm Peripheral IV ] IV Catheter Type [Right Peripheral IV Antecubital] IV Catheter Type [Right Hand] Peripheral IV IV Catheter Type [Right Wrist] Peripheral IV IV Catheter Type [Left Wrist] Peripheral IV IV Catheter Type [Left Peripheral IV Antecubital] IV Catheter Type [Right INT / Saline Lock Forearm] IV Catheter Type [Left Hand] Peripheral IV Active Medications - Current Medications Current Medications: Generic Name Dose Route Start Last Admin Trade Name Freq PRN Reason Stop Dose Admin Acetaminophen 650 mg 12/06/19 10:25 12/25/19 00:59 Tylenol FEEDTUBE 650 mg Q6H PRN Administration TEMP >/=100.3 Lipase/Protease/Amylase 1 each 11/23/19 11:[address] 10,500 Unit FEEDTUBE PRN PRN For Clogged Feeding Tube Fentanyl 50 mcg 12/05/19 02:10 12/12/19 20:04 Sublimaze IV 50 mcg Q10MIN PRN Administration ANALGESIA Glycopyrrolate 1 mg 12/24/19 14:00 12/29/19 08:44 Robinul PO 1 mg TID LUCHO Administration Hydralazine HCl 10 mg 11/24/19 00:45 12/18/19 13:25 Apresoline IV 10 mg Q6H PRN Administration SBP > 160 Hydroxyzine Pamoate 25 mg 12/06/19 10:00 12/29/19 09:06 Vistaril PO 25 mg BID LUCHO Administration Vancomycin HCl 750 mg/ Sodium 265 mls @ 166.667 mls/hr 12/24/19 22:00 12/27/19 22:08 Chloride IV 12/30/19 21:59 166.667 mls/hr Q72H LUCHO Administration Lansoprazole 30 mg 11/27/19 10:00 12/29/19 09:06 Prevacid Solutab FEEDTUBE Not Given QDAY [facility] Levetiracetam 500 mg 11/29/19 10:00 12/29/19 09:06 Keppra PO Not Given BID [facility] Lorazepam 2 mg 11/26/19 11:09 12/25/19 00:17 Ativan IV 2 mg Q4H PRN Administration Agitation Metronidazole 500 mg 12/25/19 09:00 12/29/19 06:17 Flagyl PO 12/30/19 06:01 500 mg Q8HR LUCHO Administration Mirtazapine 30 mg 12/06/19 10:00 12/29/19 09:06 Remeron PO Not Given DAILY [facility] Morphine Sulfate 2 mg 12/12/19 18:40 12/24/19 23:04 Morphine IV 2 mg Q4H PRN Administration Pain, Moderate (4-6) Ondansetron HCl 4 mg 12/10/19 07:53 12/10/19 09:51 Zofran IV 4 mg Q4H PRN Administration Nausea And Vomiting Quetiapine Fumarate 200 mg 12/23/19 10:00 12/29/19 09:00 Seroquel PO 200 mg QAM LUCHO Administration Quetiapine Fumarate 200 mg 12/25/19 22:00 12/28/19 22:16 Seroquel PO 200 mg QHS LUCHO Administration Scopolamine 1 each 12/12/19 15:00 12/27/19 17:01 Transderm-Scop TD 1 each Q3D [facility] Administration Senna/Docusate Sodium 2 tab 12/24/19 07:00 Senokot S PO BID PRN CONSTIPATION Sertraline HCl 25 mg 12/06/19 10:00 12/29/19 09:06 Zoloft PO Not Given QDAY LUCHO Simple Syrup 15 ml 11/23/19 11:50 Simple Syrup FEEDTUBE PRN PRN Hypoglycemia Simple Syrup 30 ml 11/23/19 11:50 Simple Syrup FEEDTUBE PRN PRN Hypoglycemia Sodium Bicarbonate 325 mg 11/23/19 11:50 Sodium Bicarbonate FEEDTUBE PRN PRN For Clogged Feeding Tube Tamsulosin HCl 0.4 mg 12/14/19 13:00 12/29/19 09:05 Flomax PO Not Given QDAY [facility] Nutrition/Malnutrition Assess - Dietary Evaluation Nutrition/Malnutrition Findings: Nutrition Notes Start: 11/23/19 11:29 Freq: Status: Active Protocol: Document 12/28/19 12:14 LM (Rec: 12/28/19 12:17 LM [email or web address]) Nutrition Notes Initial or Follow up Reassessment Current Diagnosis Hypertension Other Pertinent Diagnosis Cardaic arrest, ETOH dependence, UTI Current Diet Vital AF 1.2 at 50 ml/hr Labs/Tests Reviewed Pertinent Medications Reviewed Height 5 ft 6 in Weight 56 kg [place] Body Weight (kg) 59.09 BMI 19.9 Weight change and time frame wt change noted, pt with edema Subjective/Other Information TF running at goal and pt is tolerating. Percent of energy/protein needs met: 100%/100% Burn Absent Trauma Absent GI Symptoms None Current % PO Negligible Minimum of two criteria No Fluid Accumulation Mild (non-severe) #1 Nutrition Diagnosis Inadequate oral intake Diagnosis Progress(for reassessment Continues documentation) Is patient on ventilator? Yes Is Patient Ambulatory and/or Out of Bed No REE-([facility]-confined to bed) [phone] Calculation Used for Recommendations [facility] Additional Notes Protein: 66-110g (1.2-2g/kg) Fluid: 1 ml/kcal Nutrition Intervention Change Diet Order: Continue TF Nutrition Support: Vital AF 1.2 at 50 ml/hr Flush 80 ml q4h Kcal 1,440 Protein (gm) 90 Fluid (mL) 973 Goal #1 TF tolerance Goal #2 Meet at least 80% of energy and protein needs via TF Anticipated Discharge Needs: unable to determine at this time Follow-Up By: 01/04/20 Additional Comments [id number]
--- NOTE | 2019-12-29 14:34 | Progress Note ---
Assessment and Plan Acute cardiopulmonary arrest with ROSC Acute hypoxemic respiratory failure on MVS MRSA Bacteremia MRSA pneumonia Acute cvqicjbnv-ipvby-fqjaoa encephalopathy Metabolic acidosis/alcoholic acidosis/Lactic acidosis( resolved) Ischemic hepatitis Leucocytosis - persistent Erythrocytosis Tobacco use disorder Alcohol use Disorder -CBC, BMP in am -Trach care, airway clearance, secretion management( continue scopolamine patch and Robinul) -CXR, ABG prn -Weaning trials as tolerated -Continue contact isolation for MRSA -Continue all care as documented below. -Continue with MVS, Lung protective strategies, monitor airway pressures -VAP bundle addressed -Continue aspiration precautions, HOB>40 -Continue daily assessment for readiness for SBT -Continue Stress ulcer prophylaxis -Continue enteric nutritional support at goal rate. -Continue to monitor glycemic control, with target blood glucose 140-180 mg/dL while critically ill. -Avoid hypoglycemia - Continue to wean supplemental oxygen for target O2 sat's > 90% -Continue thiamine, multivitamin and electrolyte replacement -Continue to avoid nephrotoxins, adjust all medications for GFR and CrCL - Continue bronchodilators with pulmonary hygiene - Continue prn analgesia per CPOT score - Continue to maintain of sleep-wake cycle, avoid delirium - PT/OT/ROM exercises - Continue mobility protocol and skin assessment per protocol for pressure ulcer prevention - Continue to monitor for clinical seizures - continue other care per attending / other consultants CONDITION: FAIR PROGNOSIS: GUARDED CODE STATUS: DNAR Subjective Date of service: 12/29/19 Principal diagnosis: Ac cardiopulmonary arrest; Ac hypoxemic resp failure; Acute encephalopathy Interval history: Patient is seen today for: Acute cardiopulmonary arrest with ROSC; Acute hypoxemic respiratory failure; Acute metabolic-toxic encephalopathy; Ischemic hepatitis; Leucocytosis with lactic acidosis; Tobacco use disorder; Alcohol use Disorder; s/p tracheostomy; s/p PEG Seen and examined at bedside; 24hour events reviewed; nursing and respiratory care staff consulted; no adverse overnight events reported to me; resting peacefully in bed; not tolerating weaning trials- CPAP 08/03, lasted about 1 hour per RT; mental status changes persist; no fevers PUI?: No COVID19: Negative Objective Vital Signs - 12hr 12/29/19 12/29/19 12/29/19 03:00 03:51 04:00 Temperature 98.9 F Pulse Rate 105 H 111 H Pulse Rate [ From Monitor] Respiratory 22 23 Rate Blood Pressure 138/90 141/95 O2 Sat by Pulse 99 99 Oximetry O2 Sat by Pulse Oximetry [ Assessment] 12/29/19 12/29/19 12/29/19 04:37 05:00 06:00 Temperature Pulse Rate 109 H 112 H Pulse Rate [ From Monitor] Respiratory 21 21 Rate Blood Pressure 141/95 140/94 O2 Sat by Pulse 99 99 97 Oximetry O2 Sat by Pulse Oximetry [ Assessment] 12/29/19 12/29/19 12/29/19 07:00 08:00 08:27 Temperature 98.7 F Pulse Rate 114 H 108 H Pulse Rate [ 109 H From Monitor] Respiratory 22 20 Rate Blood Pressure 142/91 135/90 O2 Sat by Pulse 98 98 Oximetry O2 Sat by Pulse 97 Oximetry [ Assessment] 12/29/19 12/29/19 12/29/19 09:00 10:00 11:00 Temperature Pulse Rate 107 H 111 H 103 H Pulse Rate [ From Monitor] Respiratory 8 L 20 20 Rate Blood Pressure 135/90 137/89 144/96 O2 Sat by Pulse 100 99 100 Oximetry O2 Sat by Pulse Oximetry [ Assessment] 12/29/19 12/29/19 12/29/19 11:18 12:00 13:00 Temperature 96.2 F L Pulse Rate 103 H 102 H 101 H Pulse Rate [ 99 H From Monitor] Respiratory 20 20 Rate Blood Pressure 144/96 144/99 146/98 O2 Sat by Pulse 100 100 100 Oximetry O2 Sat by Pulse Oximetry [ Assessment] 12/29/19 14:00 Temperature Pulse Rate 106 H Pulse Rate [ From Monitor] Respiratory 20 Rate Blood Pressure 155/99 O2 Sat by Pulse 100 Oximetry O2 Sat by Pulse Oximetry [ Assessment] Constitutional: no acute distress, lethargic Eyes: non-icteric ENT: oropharynx moist, other (s/p trach, copious oral secretions) Neck: supple, no lymphadenopathy, no JVD Effort: mildly labored Ascultation: Bilateral: diminished breath sounds, rhonchi Percussion: Bilateral: not dull Cardiovascular: regular rate and rhythm (tachycardia), other (S1,S2) Gastrointestinal: normoactive bowel sounds, soft, non-tender, non-distended Integumentary: normal Extremities: no cyanosis, no edema, pulses normal, no ischemia or petechiae Neurologic: unable to assess, other (awake but not tracking voice ) Psychiatric: other (Psychiatric: Unable to assess) CBC and BMP: 04/09/20 03:42 12/27/19 03:42 ABG, PT/INR, D-dimer: ABG ABG pH 7.389 pH Units (7.350-7.450) 12/22/19 08:40 ABG pCO2 37.5 mm Hg 12/22/19 08:40 ABG pO2 75.6 mm Hg (80.0-90.0) L 12/22/19 08:40 ABG O2 Saturation 96.7 % (95.0-99.0) 12/22/19 08:40 PT/INR, D-dimer PT 17.0 Sec. (12.2-14.9) H 11/23/19 03:47 INR 1.36 (0.87-1.13) H 11/23/19 03:47 Abnormal lab findings: Abnormal Labs 11/22/19 11/22/19 11/22/19 23:17 23:18 23:27 WBC 21.2 H RBC 3.59 L Hgb 9.8 L Hct MCH 27 L RDW 18.6 H Plt Count 454 H Lymph % (Auto) [place] % (Auto) [place] # Baso # Seg Neutrophils % Seg Neuts % (Manual) 86.0 H Lymphocytes % (Manual) 9.0 L Monocytes % (Manual) Seg Neutrophils # Seg Neutrophils # Man 18.2 H Lymphocytes # (Manual) Monocytes # (Manual) 1.1 H Eosinophils # (Manual) Basophils # (Manual) PT INR APTT ABG pH ABG pO2 ABG HCO3 ABG O2 Saturation ABG Base Excess ABG Hemoglobin Oxyhemoglobin Sodium Potassium Chloride Carbon Dioxide BUN Creatinine Glucose POC Glucose 53 L Lactic Acid Calcium Ionized Calcium Phosphorus Magnesium Total Bilirubin AST ALT Alkaline Phosphatase Ammonia Total Creatine Kinase CK-MB (CK-2) CK-MB (CK-2) Rel Index Total Protein Albumin Urine WBC (Auto) 40.0 H Vancomycin Trough Salicylates Acetaminophen Plasma/Serum Alcohol Crossmatch 11/22/19 11/22/19 11/22/19 23:27 23:27 23:27 WBC RBC Hgb Hct MCH RDW Plt Count Lymph % (Auto) [place] % (Auto) [place] # Baso # Seg Neutrophils % Seg Neuts % (Manual) Lymphocytes % (Manual) Monocytes % (Manual) Seg Neutrophils # Seg Neutrophils # Man Lymphocytes # (Manual) Monocytes # (Manual) Eosinophils # (Manual) Basophils # (Manual) PT INR APTT ABG pH ABG pO2 ABG HCO3 ABG O2 Saturation ABG Base Excess ABG Hemoglobin Oxyhemoglobin Sodium Potassium 2.4 L* Chloride 85.1 L Carbon Dioxide 19 L BUN Creatinine 0.5 L Glucose 261 H POC Glucose Lactic Acid Calcium Ionized Calcium Phosphorus Magnesium Total Bilirubin AST 609 H ALT 152 H Alkaline Phosphatase 160 H Ammonia 117.0 H Total Creatine Kinase 139 H CK-MB (CK-2) 8.3 H CK-MB (CK-2) Rel Index 5.9 H Total Protein Albumin 3.6 L Urine WBC (Auto) Vancomycin Trough Salicylates < 0.3 L Acetaminophen Plasma/Serum Alcohol Crossmatch 11/22/19 11/22/19 11/23/19 23:27 23:27 01:10 WBC RBC Hgb Hct MCH RDW Plt Count Lymph % (Auto) [place] % (Auto) [place] # Baso # Seg Neutrophils % Seg Neuts % (Manual) Lymphocytes % (Manual) Monocytes % (Manual) Seg Neutrophils # Seg Neutrophils # Man Lymphocytes # (Manual) Monocytes # (Manual) Eosinophils # (Manual) Basophils # (Manual) PT INR APTT ABG pH 7.273 L ABG pO2 209.7 H ABG HCO3 ABG O2 Saturation 99.2 H ABG Base Excess -3.9 L ABG Hemoglobin 10.6 L Oxyhemoglobin 93.9 L Sodium Potassium Chloride Carbon Dioxide BUN Creatinine Glucose POC Glucose Lactic Acid Calcium Ionized Calcium Phosphorus Magnesium Total Bilirubin AST ALT Alkaline Phosphatase Ammonia Total Creatine Kinase CK-MB (CK-2) CK-MB (CK-2) Rel Index Total Protein Albumin Urine WBC (Auto) Vancomycin Trough Salicylates Acetaminophen < 5.0 L Plasma/Serum Alcohol 0.08 H Crossmatch 11/23/19 11/23/19 11/23/19 01:19 01:19 03:47 WBC RBC Hgb Hct MCH RDW Plt Count Lymph % (Auto) [place] % (Auto) [place] # Baso # Seg Neutrophils % Seg Neuts % (Manual) Lymphocytes % (Manual) Monocytes % (Manual) Seg Neutrophils # Seg Neutrophils # Man Lymphocytes # (Manual) Monocytes # (Manual) Eosinophils # (Manual) Basophils # (Manual) PT 16.3 H INR 1.29 H APTT ABG pH ABG pO2 ABG HCO3 ABG O2 Saturation ABG Base Excess ABG Hemoglobin Oxyhemoglobin Sodium Potassium Chloride Carbon Dioxide BUN Creatinine Glucose POC Glucose Lactic Acid 2.10 H* 5.00 H* Calcium Ionized Calcium Phosphorus Magnesium Total Bilirubin AST ALT Alkaline Phosphatase Ammonia Total Creatine Kinase CK-MB (CK-2) CK-MB (CK-2) Rel Index Total Protein Albumin Urine WBC (Auto) Vancomycin Trough Salicylates Acetaminophen Plasma/Serum Alcohol Crossmatch 11/23/19 11/23/19 11/23/19 03:47 03:47 04:53 WBC RBC Hgb 9.4 L Hct MCH RDW Plt Count Lymph % (Auto) [place] % (Auto) [place] # Baso # Seg Neutrophils % Seg Neuts % (Manual) Lymphocytes % (Manual) Monocytes % (Manual) Seg Neutrophils # Seg Neutrophils # Man Lymphocytes # (Manual) Monocytes # (Manual) Eosinophils # (Manual) Basophils # (Manual) PT 17.0 H INR 1.36 H APTT 128.2 H* ABG pH ABG pO2 ABG HCO3 ABG O2 Saturation ABG Base Excess ABG Hemoglobin Oxyhemoglobin Sodium Potassium Chloride Carbon Dioxide 18 L BUN Creatinine 0.5 L Glucose 105 H POC Glucose Lactic Acid Calcium 8.3 L Ionized Calcium Phosphorus 2.40 L Magnesium Total Bilirubin 1.30 H AST 761 H ALT 158 H Alkaline Phosphatase 143 H Ammonia Total Creatine Kinase CK-MB (CK-2) CK-MB (CK-2) Rel Index Total Protein Albumin 2.8 L Urine WBC (Auto) Vancomycin Trough Salicylates Acetaminophen Plasma/Serum Alcohol Crossmatch 11/23/19 11/23/19 11/23/19 05:12 06:32 06:32 WBC 16.8 H RBC 3.31 L Hgb 8.9 L Hct 28.7 L MCH 27 L RDW 18.6 H Plt Count Lymph % (Auto) [place] % (Auto) [place] # Baso # Seg Neutrophils % Seg Neuts % (Manual) 94.0 H Lymphocytes % (Manual) 1.0 L Monocytes % (Manual) Seg Neutrophils # Seg Neutrophils # Man 15.8 H Lymphocytes # (Manual) 0.2 L Monocytes # (Manual) Eosinophils # (Manual) Basophils # (Manual) PT INR APTT ABG pH ABG pO2 ABG HCO3 ABG O2 Saturation ABG Base Excess -3.2 L ABG Hemoglobin 9.0 L Oxyhemoglobin 93.6 L Sodium Potassium Chloride Carbon Dioxide BUN Creatinine Glucose POC Glucose Lactic Acid Calcium Ionized Calcium 4.5 L Phosphorus Magnesium Total Bilirubin AST ALT Alkaline Phosphatase Ammonia Total Creatine Kinase CK-MB (CK-2) CK-MB (CK-2) Rel Index Total Protein Albumin Urine WBC (Auto) Vancomycin Trough Salicylates Acetaminophen Plasma/Serum Alcohol Crossmatch 11/23/19 11/24/19 11/24/19 06:32 04:35 04:35 WBC RBC Hgb Hct MCH RDW Plt Count Lymph % (Auto) [place] % (Auto) [place] # Baso # Seg Neutrophils % Seg Neuts % (Manual) Lymphocytes % (Manual) Monocytes % (Manual) Seg Neutrophils # Seg Neutrophils # Man Lymphocytes # (Manual) Monocytes # (Manual) Eosinophils # (Manual) Basophils # (Manual) PT INR APTT ABG pH ABG pO2 ABG HCO3 ABG O2 Saturation ABG Base Excess ABG Hemoglobin Oxyhemoglobin Sodium Potassium Chloride Carbon Dioxide BUN Creatinine Glucose POC Glucose Lactic Acid 3.30 H* Calcium Ionized Calcium Phosphorus Magnesium 1.40 L Total Bilirubin AST ALT Alkaline Phosphatase Ammonia 98.0 H Total Creatine Kinase CK-MB (CK-2) CK-MB (CK-2) Rel Index Total Protein Albumin Urine WBC (Auto) Vancomycin Trough Salicylates Acetaminophen Plasma/Serum Alcohol Crossmatch 11/24/19 11/25/19 11/25/19 05:22 04:34 05:05 WBC 17.3 H RBC 2.88 L Hgb 7.8 L Hct 24.6 L MCH 27 L RDW 18.5 H Plt Count Lymph % (Auto) 7.7 L [place] % (Auto) 9.7 H [place] # 1.7 H Baso # Seg Neutrophils % 82.2 H Seg Neuts % (Manual) Lymphocytes % (Manual) Monocytes % (Manual) Seg Neutrophils # 14.2 H Seg Neutrophils # Man Lymphocytes # (Manual) Monocytes # (Manual) Eosinophils # (Manual) Basophils # (Manual) PT INR APTT ABG pH 7.475 H ABG pO2 ABG HCO3 29.4 H 32.3 H ABG O2 Saturation ABG Base Excess 5.4 H 6.9 H ABG Hemoglobin 9.0 L 10.6 L Oxyhemoglobin 94.3 L Sodium Potassium Chloride Carbon Dioxide BUN Creatinine Glucose POC Glucose Lactic Acid Calcium Ionized Calcium Phosphorus Magnesium Total Bilirubin AST ALT Alkaline Phosphatase Ammonia Total Creatine Kinase CK-MB (CK-2) CK-MB (CK-2) Rel Index Total Protein Albumin Urine WBC (Auto) Vancomycin Trough Salicylates Acetaminophen Plasma/Serum Alcohol Crossmatch 11/25/19 11/25/19 11/26/19 05:05 22:46 03:31 WBC RBC Hgb Hct MCH RDW Plt Count Lymph % (Auto) [place] % (Auto) [place] # Baso # Seg Neutrophils % Seg Neuts % (Manual) Lymphocytes % (Manual) Monocytes % (Manual) Seg Neutrophils # Seg Neutrophils # Man Lymphocytes # (Manual) Monocytes # (Manual) Eosinophils # (Manual) Basophils # (Manual) PT INR APTT ABG pH 7.459 H ABG pO2 ABG HCO3 34.2 H ABG O2 Saturation ABG Base Excess 9.4 H ABG Hemoglobin 7.6 L Oxyhemoglobin 94.8 L Sodium 152 H D 147 H Potassium 2.3 L* D 2.8 L* D Chloride 107.8 H Carbon Dioxide 31 H D 33 H BUN Creatinine 0.6 L 0.6 L Glucose 148 H 177 H POC Glucose Lactic Acid Calcium Ionized Calcium Phosphorus Magnesium Total Bilirubin AST 105 H ALT 71 H Alkaline Phosphatase 155 H Ammonia Total Creatine Kinase CK-MB (CK-2) CK-MB (CK-2) Rel Index Total Protein 5.2 L D Albumin 2.9 L Urine WBC (Auto) Vancomycin Trough Salicylates Acetaminophen Plasma/Serum Alcohol Crossmatch 11/26/19 11/26/19 11/27/19 08:24 08:24 04:20 WBC 12.0 H RBC 3.00 L Hgb 8.0 L 9.3 L Hct 25.9 L 29.7 L MCH 27 L RDW 18.5 H Plt Count Lymph % (Auto) [place] % (Auto) [place] # Baso # Seg Neutrophils % Seg Neuts % (Manual) 89.0 H Lymphocytes % (Manual) 4.0 L Monocytes % (Manual) Seg Neutrophils # Seg Neutrophils # Man 10.7 H Lymphocytes # (Manual) 0.5 L Monocytes # (Manual) Eosinophils # (Manual) Basophils # (Manual) PT INR APTT ABG pH ABG pO2 ABG HCO3 ABG O2 Saturation ABG Base Excess ABG Hemoglobin Oxyhemoglobin Sodium 146 H Potassium 3.4 L D Chloride Carbon Dioxide BUN Creatinine 0.5 L Glucose 165 H POC Glucose Lactic Acid Calcium Ionized Calcium Phosphorus Magnesium Total Bilirubin AST 57 H ALT Alkaline Phosphatase 166 H Ammonia Total Creatine Kinase CK-MB (CK-2) CK-MB (CK-2) Rel Index Total Protein Albumin 2.9 L Urine WBC (Auto) Vancomycin Trough Salicylates Acetaminophen Plasma/Serum Alcohol Crossmatch 11/27/19 11/27/19 11/27/19 04:28 04:28 04:42 WBC RBC Hgb Hct MCH RDW Plt Count Lymph % (Auto) [place] % (Auto) [place] # Baso # Seg Neutrophils % Seg Neuts % (Manual) Lymphocytes % (Manual) Monocytes % (Manual) Seg Neutrophils # Seg Neutrophils # Man Lymphocytes # (Manual) Monocytes # (Manual) Eosinophils # (Manual) Basophils # (Manual) PT INR APTT ABG pH 7.470 H ABG pO2 74.0 L ABG HCO3 33.8 H ABG O2 Saturation ABG Base Excess 9.1 H ABG Hemoglobin 8.7 L Oxyhemoglobin 94.7 L Sodium 146 H Potassium 2.9 L* Chloride Carbon Dioxide BUN 25 H Creatinine Glucose 213 H POC Glucose Lactic Acid Calcium Ionized Calcium Phosphorus 1.00 L Magnesium Total Bilirubin AST ALT Alkaline Phosphatase Ammonia Total Creatine Kinase CK-MB (CK-2) CK-MB (CK-2) Rel Index Total Protein Albumin Urine WBC (Auto) Vancomycin Trough Salicylates Acetaminophen Plasma/Serum Alcohol Crossmatch 11/27/19 11/27/19 11/27/19 05:37 12:20 15:46 WBC RBC Hgb Hct MCH RDW Plt Count Lymph % (Auto) [place] % (Auto) [place] # Baso # Seg Neutrophils % Seg Neuts % (Manual) Lymphocytes % (Manual) Monocytes % (Manual) Seg Neutrophils # Seg Neutrophils # Man Lymphocytes # (Manual) Monocytes # (Manual) Eosinophils # (Manual) Basophils # (Manual) PT INR APTT ABG pH ABG pO2 ABG HCO3 ABG O2 Saturation ABG Base Excess ABG Hemoglobin Oxyhemoglobin Sodium 146 H Potassium 3.5 L D Chloride Carbon Dioxide BUN 24 H Creatinine 0.6 L Glucose 187 H POC Glucose 117 H 220 H Lactic Acid Calcium Ionized Calcium Phosphorus Magnesium Total Bilirubin AST ALT Alkaline Phosphatase Ammonia Total Creatine Kinase CK-MB (CK-2) CK-MB (CK-2) Rel Index Total Protein Albumin Urine WBC (Auto) Vancomycin Trough Salicylates Acetaminophen Plasma/Serum Alcohol Crossmatch 11/27/19 11/28/19 11/28/19 17:28 05:00 05:02 WBC RBC Hgb Hct MCH RDW Plt Count Lymph % (Auto) [place] % (Auto) [place] # Baso # Seg Neutrophils % Seg Neuts % (Manual) Lymphocytes % (Manual) Monocytes % (Manual) Seg Neutrophils # Seg Neutrophils # Man Lymphocytes # (Manual) Monocytes # (Manual) Eosinophils # (Manual) Basophils # (Manual) PT INR APTT ABG pH ABG pO2 72.4 L ABG HCO3 33.6 H ABG O2 Saturation 94.1 L ABG Base Excess 7.3 H ABG Hemoglobin Oxyhemoglobin 91.8 L Sodium 146 H Potassium 3.3 L Chloride Carbon Dioxide BUN 25 H Creatinine 0.6 L Glucose 176 H POC Glucose 198 H Lactic Acid Calcium Ionized Calcium Phosphorus Magnesium Total Bilirubin AST ALT Alkaline Phosphatase Ammonia Total Creatine Kinase CK-MB (CK-2) CK-MB (CK-2) Rel Index Total Protein Albumin Urine WBC (Auto) Vancomycin Trough Salicylates Acetaminophen Plasma/Serum Alcohol Crossmatch 11/28/19 11/28/19 11/29/19 05:02 18:55 10:43 WBC 15.2 H 19.0 H RBC 3.06 L 3.01 L Hgb 8.3 L 8.3 L Hct 27.0 L 26.4 L MCH 27 L RDW 19.0 H 19.7 H Plt Count 479 H 611 H Lymph % (Auto) [place] % (Auto) [place] # Baso # Seg Neutrophils % Seg Neuts % (Manual) 92.0 H Lymphocytes % (Manual) 2.0 L Monocytes % (Manual) Seg Neutrophils # Seg Neutrophils # Man 14.0 H Lymphocytes # (Manual) 0.3 L Monocytes # (Manual) Eosinophils # (Manual) Basophils # (Manual) PT INR APTT ABG pH ABG pO2 ABG HCO3 ABG O2 Saturation ABG Base Excess ABG Hemoglobin Oxyhemoglobin Sodium Potassium Chloride Carbon Dioxide BUN Creatinine Glucose POC Glucose 138 H Lactic Acid Calcium Ionized Calcium Phosphorus Magnesium Total Bilirubin AST ALT Alkaline Phosphatase Ammonia Total Creatine Kinase CK-MB (CK-2) CK-MB (CK-2) Rel Index Total Protein Albumin Urine WBC (Auto) Vancomycin Trough Salicylates Acetaminophen Plasma/Serum Alcohol Crossmatch 11/29/19 11/29/19 11/29/19 10:43 12:27 19:25 WBC RBC Hgb Hct MCH RDW Plt Count Lymph % (Auto) [place] % (Auto) [place] # Baso # Seg Neutrophils % Seg Neuts % (Manual) Lymphocytes % (Manual) Monocytes % (Manual) Seg Neutrophils # Seg Neutrophils # Man Lymphocytes # (Manual) Monocytes # (Manual) Eosinophils # (Manual) Basophils # (Manual) PT INR APTT ABG pH ABG pO2 ABG HCO3 ABG O2 Saturation ABG Base Excess ABG Hemoglobin Oxyhemoglobin Sodium Potassium 2.8 L* Chloride Carbon Dioxide BUN 20 H Creatinine 0.5 L Glucose 121 H POC Glucose 128 H 120 H Lactic Acid Calcium Ionized Calcium Phosphorus Magnesium Total Bilirubin AST ALT Alkaline Phosphatase Ammonia Total Creatine Kinase CK-MB (CK-2) CK-MB (CK-2) Rel Index Total Protein Albumin Urine WBC (Auto) Vancomycin Trough Salicylates Acetaminophen Plasma/Serum Alcohol Crossmatch 11/29/19 11/30/19 11/30/19 23:46 04:10 05:02 WBC RBC Hgb Hct MCH RDW Plt Count Lymph % (Auto) [place] % (Auto) [place] # Baso # Seg Neutrophils % Seg Neuts % (Manual) Lymphocytes % (Manual) Monocytes % (Manual) Seg Neutrophils # Seg Neutrophils # Man Lymphocytes # (Manual) Monocytes # (Manual) Eosinophils # (Manual) Basophils # (Manual) PT INR APTT ABG pH ABG pO2 76.3 L ABG HCO3 32.5 H ABG O2 Saturation ABG Base Excess 6.9 H ABG Hemoglobin 8.0 L Oxyhemoglobin 92.6 L Sodium Potassium Chloride Carbon Dioxide BUN Creatinine Glucose POC Glucose 116 H 128 H Lactic Acid Calcium Ionized Calcium Phosphorus Magnesium Total Bilirubin AST ALT Alkaline Phosphatase Ammonia Total Creatine Kinase CK-MB (CK-2) CK-MB (CK-2) Rel Index Total Protein Albumin Urine WBC (Auto) Vancomycin Trough Salicylates Acetaminophen Plasma/Serum Alcohol Crossmatch 11/30/19 11/30/19 11/30/19 05:25 05:25 12:59 WBC 18.4 H RBC 3.10 L Hgb 8.5 L Hct 27.5 L MCH 27 L RDW 20.9 H Plt Count 691 H Lymph % (Auto) 7.1 L [place] % (Auto) 7.7 H [place] # 1.4 H Baso # Seg Neutrophils % 83.4 H Seg Neuts % (Manual) Lymphocytes % (Manual) Monocytes % (Manual) Seg Neutrophils # 15.4 H Seg Neutrophils # Man Lymphocytes # (Manual) Monocytes # (Manual) Eosinophils # (Manual) Basophils # (Manual) PT INR APTT ABG pH ABG pO2 ABG HCO3 ABG O2 Saturation ABG Base Excess ABG Hemoglobin Oxyhemoglobin Sodium 146 H Potassium Chloride 107.2 H Carbon Dioxide BUN Creatinine 0.5 L Glucose 132 H POC Glucose 124 H Lactic Acid Calcium Ionized Calcium Phosphorus Magnesium Total Bilirubin AST 246 H ALT 274 H Alkaline Phosphatase 203 H Ammonia Total Creatine Kinase CK-MB (CK-2) CK-MB (CK-2) Rel Index Total Protein 5.4 L Albumin 2.9 L Urine WBC (Auto) Vancomycin Trough Salicylates Acetaminophen Plasma/Serum Alcohol Crossmatch 11/30/19 12/01/19 12/01/19 17:53 00:05 05:10 WBC RBC Hgb Hct MCH RDW Plt Count Lymph % (Auto) [place] % (Auto) [place] # Baso # Seg Neutrophils % Seg Neuts % (Manual) Lymphocytes % (Manual) Monocytes % (Manual) Seg Neutrophils # Seg Neutrophils # Man Lymphocytes # (Manual) Monocytes # (Manual) Eosinophils # (Manual) Basophils # (Manual) PT INR APTT ABG pH ABG pO2 ABG HCO3 ABG O2 Saturation ABG Base Excess ABG Hemoglobin Oxyhemoglobin Sodium Potassium Chloride Carbon Dioxide BUN Creatinine Glucose POC Glucose 113 H 143 H 145 H Lactic Acid Calcium Ionized Calcium Phosphorus Magnesium Total Bilirubin AST ALT Alkaline Phosphatase Ammonia Total Creatine Kinase CK-MB (CK-2) CK-MB (CK-2) Rel Index Total Protein Albumin Urine WBC (Auto) Vancomycin Trough Salicylates Acetaminophen Plasma/Serum Alcohol Crossmatch 12/01/19 12/01/19 12/01/19 05:33 08:23 08:23 WBC 22.7 H RBC 2.88 L Hgb 7.9 L Hct 25.2 L MCH 27 L RDW 21.0 H Plt Count 732 H Lymph % (Auto) [place] % (Auto) [place] # Baso # Seg Neutrophils % Seg Neuts % (Manual) 91.0 H Lymphocytes % (Manual) 3.0 L Monocytes % (Manual) Seg Neutrophils # Seg Neutrophils # Man 20.7 H Lymphocytes # (Manual) 0.7 L Monocytes # (Manual) 1.1 H Eosinophils # (Manual) Basophils # (Manual) PT INR APTT ABG pH ABG pO2 68.6 L ABG HCO3 34.1 H ABG O2 Saturation ABG Base Excess 9.0 H ABG Hemoglobin 6.5 L Oxyhemoglobin 94.7 L Sodium Potassium Chloride Carbon Dioxide BUN Creatinine 0.5 L Glucose 125 H POC Glucose Lactic Acid Calcium Ionized Calcium Phosphorus Magnesium Total Bilirubin AST ALT Alkaline Phosphatase Ammonia Total Creatine Kinase CK-MB (CK-2) CK-MB (CK-2) Rel Index Total Protein Albumin Urine WBC (Auto) Vancomycin Trough Salicylates Acetaminophen Plasma/Serum Alcohol Crossmatch 12/01/19 12/01/19 12/01/19 13:21 17:54 20:59 WBC RBC Hgb Hct MCH RDW Plt Count Lymph % (Auto) [place] % (Auto) [place] # Baso # Seg Neutrophils % Seg Neuts % (Manual) Lymphocytes % (Manual) Monocytes % (Manual) Seg Neutrophils # Seg Neutrophils # Man Lymphocytes # (Manual) Monocytes # (Manual) Eosinophils # (Manual) Basophils # (Manual) PT INR APTT ABG pH ABG pO2 78.3 L ABG HCO3 33.8 H ABG O2 Saturation 94.9 L ABG Base Excess 7.9 H ABG Hemoglobin 11.5 L Oxyhemoglobin 92.3 L Sodium Potassium Chloride Carbon Dioxide BUN Creatinine Glucose POC Glucose 111 H 115 H Lactic Acid Calcium Ionized Calcium Phosphorus Magnesium Total Bilirubin AST ALT Alkaline Phosphatase Ammonia Total Creatine Kinase CK-MB (CK-2) CK-MB (CK-2) Rel Index Total Protein Albumin Urine WBC (Auto) Vancomycin Trough Salicylates Acetaminophen Plasma/Serum Alcohol Crossmatch 12/02/19 12/03/19 12/04/19 12:55 20:00 04:26 WBC 15.2 H RBC 2.69 L Hgb 7.4 L Hct 23.6 L MCH 27 L RDW 19.9 H Plt Count 838 H Lymph % (Auto) [place] % (Auto) [place] # Baso # Seg Neutrophils % Seg Neuts % (Manual) Lymphocytes % (Manual) Monocytes % (Manual) Seg Neutrophils # Seg Neutrophils # Man Lymphocytes # (Manual) Monocytes # (Manual) Eosinophils # (Manual) Basophils # (Manual) PT INR APTT ABG pH ABG pO2 68.3 L ABG HCO3 33.5 H ABG O2 Saturation 93.5 L ABG Base Excess 8.4 H ABG Hemoglobin 7.3 L Oxyhemoglobin 90.9 L Sodium Potassium Chloride Carbon Dioxide BUN Creatinine Glucose POC Glucose 107 H Lactic Acid Calcium Ionized Calcium Phosphorus Magnesium Total Bilirubin AST ALT Alkaline Phosphatase Ammonia Total Creatine Kinase CK-MB (CK-2) CK-MB (CK-2) Rel Index Total Protein Albumin Urine WBC (Auto) Vancomycin Trough Salicylates Acetaminophen Plasma/Serum Alcohol Crossmatch 12/04/19 12/04/19 12/04/19 04:26 07:45 12:02 WBC 15.9 H RBC 2.88 L Hgb 7.9 L Hct 25.1 L MCH RDW 20.4 H Plt Count 839 H Lymph % (Auto) 11.3 L [place] % (Auto) 15.2 H [place] # 2.4 H Baso # Seg Neutrophils % 72.4 H Seg Neuts % (Manual) Lymphocytes % (Manual) Monocytes % (Manual) Seg Neutrophils # 11.5 H Seg Neutrophils # Man Lymphocytes # (Manual) Monocytes # (Manual) Eosinophils # (Manual) Basophils # (Manual) PT INR APTT ABG pH ABG pO2 ABG HCO3 ABG O2 Saturation ABG Base Excess ABG Hemoglobin Oxyhemoglobin Sodium Potassium Chloride 96.5 L Carbon Dioxide BUN 21 H Creatinine 0.6 L Glucose 107 H POC Glucose 138 H Lactic Acid Calcium Ionized Calcium Phosphorus Magnesium Total Bilirubin AST ALT Alkaline Phosphatase Ammonia Total Creatine Kinase CK-MB (CK-2) CK-MB (CK-2) Rel Index Total Protein Albumin Urine WBC (Auto) Vancomycin Trough Salicylates Acetaminophen Plasma/Serum Alcohol Crossmatch 12/04/19 12/05/19 12/05/19 18:16 11:55 18:36 WBC RBC Hgb Hct MCH RDW Plt Count Lymph % (Auto) [place] % (Auto) [place] # Baso # Seg Neutrophils % Seg Neuts % (Manual) Lymphocytes % (Manual) Monocytes % (Manual) Seg Neutrophils # Seg Neutrophils # Man Lymphocytes # (Manual) Monocytes # (Manual) Eosinophils # (Manual) Basophils # (Manual) PT INR APTT ABG pH ABG pO2 ABG HCO3 ABG O2 Saturation ABG Base Excess ABG Hemoglobin Oxyhemoglobin Sodium Potassium Chloride Carbon Dioxide BUN Creatinine Glucose POC Glucose 135 H 125 H 135 H Lactic Acid Calcium Ionized Calcium Phosphorus Magnesium Total Bilirubin AST ALT Alkaline Phosphatase Ammonia Total Creatine Kinase CK-MB (CK-2) CK-MB (CK-2) Rel Index Total Protein Albumin Urine WBC (Auto) Vancomycin Trough Salicylates Acetaminophen Plasma/Serum Alcohol Crossmatch 12/05/19 12/06/19 12/06/19 23:30 04:14 05:43 WBC RBC Hgb Hct MCH RDW Plt Count Lymph % (Auto) [place] % (Auto) [place] # Baso # Seg Neutrophils % Seg Neuts % (Manual) Lymphocytes % (Manual) Monocytes % (Manual) Seg Neutrophils # Seg Neutrophils # Man Lymphocytes # (Manual) Monocytes # (Manual) Eosinophils # (Manual) Basophils # (Manual) PT INR APTT ABG pH ABG pO2 ABG HCO3 ABG O2 Saturation ABG Base Excess ABG Hemoglobin Oxyhemoglobin Sodium Potassium 5.6 H Chloride 95.0 L Carbon Dioxide BUN 48 H Creatinine 1.3 H D Glucose POC Glucose 126 H 121 H Lactic Acid Calcium Ionized Calcium Phosphorus Magnesium Total Bilirubin AST 89 H ALT 98 H Alkaline Phosphatase 476 H Ammonia Total Creatine Kinase CK-MB (CK-2) CK-MB (CK-2) Rel Index Total Protein Albumin 2.8 L Urine WBC (Auto) Vancomycin Trough Salicylates Acetaminophen Plasma/Serum Alcohol Crossmatch 12/06/19 12/06/19 12/07/19 10:39 14:34 00:19 WBC 17.3 H RBC 2.60 L Hgb 7.1 L Hct 22.7 L MCH 27 L RDW 20.1 H Plt Count 832 H Lymph % (Auto) [place] % (Auto) [place] # Baso # Seg Neutrophils % Seg Neuts % (Manual) Lymphocytes % (Manual) Monocytes % (Manual) Seg Neutrophils # Seg Neutrophils # Man Lymphocytes # (Manual) Monocytes # (Manual) Eosinophils # (Manual) Basophils # (Manual) PT INR APTT ABG pH ABG pO2 ABG HCO3 ABG O2 Saturation ABG Base Excess ABG Hemoglobin Oxyhemoglobin Sodium Potassium Chloride Carbon Dioxide BUN Creatinine Glucose POC Glucose 128 H 136 H Lactic Acid Calcium Ionized Calcium Phosphorus Magnesium Total Bilirubin AST ALT Alkaline Phosphatase Ammonia Total Creatine Kinase CK-MB (CK-2) CK-MB (CK-2) Rel Index Total Protein Albumin Urine WBC (Auto) Vancomycin Trough Salicylates Acetaminophen Plasma/Serum Alcohol Crossmatch 12/07/19 12/07/19 12/07/19 03:44 03:44 05:53 WBC 16.2 H RBC 2.56 L Hgb 7.1 L Hct 22.3 L MCH RDW 19.4 H Plt Count 782 H Lymph % (Auto) [place] % (Auto) [place] # Baso # Seg Neutrophils % Seg Neuts % (Manual) Lymphocytes % (Manual) Monocytes % (Manual) Seg Neutrophils # Seg Neutrophils # Man Lymphocytes # (Manual) Monocytes # (Manual) Eosinophils # (Manual) Basophils # (Manual) PT INR APTT ABG pH ABG pO2 ABG HCO3 ABG O2 Saturation ABG Base Excess ABG Hemoglobin Oxyhemoglobin Sodium Potassium Chloride 95.6 L Carbon Dioxide BUN 56 H Creatinine 1.4 H Glucose 120 H POC Glucose 128 H Lactic Acid Calcium 10.3 H Ionized Calcium Phosphorus Magnesium Total Bilirubin AST ALT Alkaline Phosphatase Ammonia Total Creatine Kinase CK-MB (CK-2) CK-MB (CK-2) Rel Index Total Protein Albumin Urine WBC (Auto) Vancomycin Trough Salicylates Acetaminophen Plasma/Serum Alcohol Crossmatch 12/07/19 12/07/19 12/08/19 12:54 23:47 00:20 WBC RBC Hgb Hct MCH RDW Plt Count Lymph % (Auto) [place] % (Auto) [place] # Baso # Seg Neutrophils % Seg Neuts % (Manual) Lymphocytes % (Manual) Monocytes % (Manual) Seg Neutrophils # Seg Neutrophils # Man Lymphocytes # (Manual) Monocytes # (Manual) Eosinophils # (Manual) Basophils # (Manual) PT INR APTT ABG pH ABG pO2 ABG HCO3 ABG O2 Saturation ABG Base Excess ABG Hemoglobin Oxyhemoglobin Sodium Potassium Chloride Carbon Dioxide BUN Creatinine Glucose POC Glucose 128 H 130 H 124 H Lactic Acid Calcium Ionized Calcium Phosphorus Magnesium Total Bilirubin AST ALT Alkaline Phosphatase Ammonia Total Creatine Kinase CK-MB (CK-2) CK-MB (CK-2) Rel Index Total Protein Albumin Urine WBC (Auto) Vancomycin Trough Salicylates Acetaminophen Plasma/Serum Alcohol Crossmatch 12/08/19 12/08/19 12/08/19 06:38 12:04 18:26 WBC RBC Hgb Hct MCH RDW Plt Count Lymph % (Auto) [place] % (Auto) [place] # Baso # Seg Neutrophils % Seg Neuts % (Manual) Lymphocytes % (Manual) Monocytes % (Manual) Seg Neutrophils # Seg Neutrophils # Man Lymphocytes # (Manual) Monocytes # (Manual) Eosinophils # (Manual) Basophils # (Manual) PT INR APTT ABG pH ABG pO2 ABG HCO3 ABG O2 Saturation ABG Base Excess ABG Hemoglobin Oxyhemoglobin Sodium Potassium Chloride Carbon Dioxide BUN Creatinine Glucose POC Glucose 137 H 129 H 150 H Lactic Acid Calcium Ionized Calcium Phosphorus Magnesium Total Bilirubin AST ALT Alkaline Phosphatase Ammonia Total Creatine Kinase CK-MB (CK-2) CK-MB (CK-2) Rel Index Total Protein Albumin Urine WBC (Auto) Vancomycin Trough Salicylates Acetaminophen Plasma/Serum Alcohol Crossmatch 12/09/19 12/09/19 12/09/19 00:56 05:34 06:13 WBC RBC Hgb Hct MCH RDW Plt Count Lymph % (Auto) [place] % (Auto) [place] # Baso # Seg Neutrophils % Seg Neuts % (Manual) Lymphocytes % (Manual) Monocytes % (Manual) Seg Neutrophils # Seg Neutrophils # Man Lymphocytes # (Manual) Monocytes # (Manual) Eosinophils # (Manual) Basophils # (Manual) PT INR APTT ABG pH ABG pO2 ABG HCO3 ABG O2 Saturation ABG Base Excess ABG Hemoglobin Oxyhemoglobin Sodium 146 H Potassium Chloride Carbon Dioxide BUN 66 H Creatinine 1.9 H Glucose 116 H POC Glucose 130 H 130 H Lactic Acid Calcium Ionized Calcium Phosphorus Magnesium Total Bilirubin AST ALT Alkaline Phosphatase Ammonia Total Creatine Kinase CK-MB (CK-2) CK-MB (CK-2) Rel Index Total Protein Albumin Urine WBC (Auto) Vancomycin Trough Salicylates Acetaminophen Plasma/Serum Alcohol Crossmatch 12/09/19 12/09/19 12/10/19 11:52 17:50 00:14 WBC RBC Hgb Hct MCH RDW Plt Count Lymph % (Auto) [place] % (Auto) [place] # Baso # Seg Neutrophils % Seg Neuts % (Manual) Lymphocytes % (Manual) Monocytes % (Manual) Seg Neutrophils # Seg Neutrophils # Man Lymphocytes # (Manual) Monocytes # (Manual) Eosinophils # (Manual) Basophils # (Manual) PT INR APTT ABG pH ABG pO2 ABG HCO3 ABG O2 Saturation ABG Base Excess ABG Hemoglobin Oxyhemoglobin Sodium Potassium Chloride Carbon Dioxide BUN Creatinine Glucose POC Glucose 135 H 120 H 116 H Lactic Acid Calcium Ionized Calcium Phosphorus Magnesium Total Bilirubin AST ALT Alkaline Phosphatase Ammonia Total Creatine Kinase CK-MB (CK-2) CK-MB (CK-2) Rel Index Total Protein Albumin Urine WBC (Auto) Vancomycin Trough Salicylates Acetaminophen Plasma/Serum Alcohol Crossmatch 12/10/19 12/10/19 12/10/19 05:38 11:38 17:34 WBC RBC Hgb Hct MCH RDW Plt Count Lymph % (Auto) [place] % (Auto) [place] # Baso # Seg Neutrophils % Seg Neuts % (Manual) Lymphocytes % (Manual) Monocytes % (Manual) Seg Neutrophils # Seg Neutrophils # Man Lymphocytes # (Manual) Monocytes # (Manual) Eosinophils # (Manual) Basophils # (Manual) PT INR APTT ABG pH ABG pO2 ABG HCO3 ABG O2 Saturation ABG Base Excess ABG Hemoglobin Oxyhemoglobin Sodium Potassium Chloride Carbon Dioxide BUN Creatinine Glucose POC Glucose 115 H 112 H 130 H Lactic Acid Calcium Ionized Calcium Phosphorus Magnesium Total Bilirubin AST ALT Alkaline Phosphatase Ammonia Total Creatine Kinase CK-MB (CK-2) CK-MB (CK-2) Rel Index Total Protein Albumin Urine WBC (Auto) Vancomycin Trough Salicylates Acetaminophen Plasma/Serum Alcohol Crossmatch 12/11/19 12/11/19 12/11/19 00:20 05:31 12:22 WBC RBC Hgb Hct MCH RDW Plt Count Lymph % (Auto) [place] % (Auto) [place] # Baso # Seg Neutrophils % Seg Neuts % (Manual) Lymphocytes % (Manual) Monocytes % (Manual) Seg Neutrophils # Seg Neutrophils # Man Lymphocytes # (Manual) Monocytes # (Manual) Eosinophils # (Manual) Basophils # (Manual) PT INR APTT ABG pH ABG pO2 ABG HCO3 ABG O2 Saturation ABG Base Excess ABG Hemoglobin Oxyhemoglobin Sodium Potassium Chloride Carbon Dioxide BUN Creatinine Glucose POC Glucose 124 H 132 H 128 H Lactic Acid Calcium Ionized Calcium Phosphorus Magnesium Total Bilirubin AST ALT Alkaline Phosphatase Ammonia Total Creatine Kinase CK-MB (CK-2) CK-MB (CK-2) Rel Index Total Protein Albumin Urine WBC (Auto) Vancomycin Trough Salicylates Acetaminophen Plasma/Serum Alcohol Crossmatch 12/11/19 12/11/19 12/12/19 18:04 23:42 03:51 WBC RBC Hgb Hct MCH RDW Plt Count Lymph % (Auto) [place] % (Auto) [place] # Baso # Seg Neutrophils % Seg Neuts % (Manual) Lymphocytes % (Manual) Monocytes % (Manual) Seg Neutrophils # Seg Neutrophils # Man Lymphocytes # (Manual) Monocytes # (Manual) Eosinophils # (Manual) Basophils # (Manual) PT INR APTT ABG pH ABG pO2 ABG HCO3 ABG O2 Saturation ABG Base Excess ABG Hemoglobin Oxyhemoglobin Sodium 149 H Potassium Chloride Carbon Dioxide 20 L D BUN 77 H Creatinine 2.8 H Glucose POC Glucose 133 H 154 H Lactic Acid Calcium Ionized Calcium Phosphorus Magnesium Total Bilirubin AST ALT Alkaline Phosphatase Ammonia Total Creatine Kinase CK-MB (CK-2) CK-MB (CK-2) Rel Index Total Protein Albumin Urine WBC (Auto) Vancomycin Trough Salicylates Acetaminophen Plasma/Serum Alcohol Crossmatch 12/12/19 12/12/19 12/12/19 05:18 05:26 10:30 WBC 18.0 H RBC 2.51 L Hgb 6.8 L Hct 22.0 L MCH 27 L RDW 19.9 H Plt Count 582 H Lymph % (Auto) [place] % (Auto) [place] # Baso # Seg Neutrophils % Seg Neuts % (Manual) Lymphocytes % (Manual) Monocytes % (Manual) Seg Neutrophils # Seg Neutrophils # Man Lymphocytes # (Manual) Monocytes # (Manual) Eosinophils # (Manual) Basophils # (Manual) PT INR APTT ABG pH ABG pO2 ABG HCO3 ABG O2 Saturation ABG Base Excess ABG Hemoglobin Oxyhemoglobin Sodium Potassium Chloride Carbon Dioxide BUN Creatinine Glucose POC Glucose 135 H Lactic Acid Calcium Ionized Calcium Phosphorus Magnesium Total Bilirubin AST ALT Alkaline Phosphatase Ammonia Total Creatine Kinase CK-MB (CK-2) CK-MB (CK-2) Rel Index Total Protein Albumin Urine WBC (Auto) Vancomycin Trough Salicylates Acetaminophen Plasma/Serum Alcohol Crossmatch See Detail 12/12/19 12/12/19 12/12/19 11:44 18:10 23:21 WBC RBC Hgb Hct MCH RDW Plt Count Lymph % (Auto) [place] % (Auto) [place] # Baso # Seg Neutrophils % Seg Neuts % (Manual) Lymphocytes % (Manual) Monocytes % (Manual) Seg Neutrophils # Seg Neutrophils # Man Lymphocytes # (Manual) Monocytes # (Manual) Eosinophils # (Manual) Basophils # (Manual) PT INR APTT ABG pH ABG pO2 ABG HCO3 ABG O2 Saturation ABG Base Excess ABG Hemoglobin Oxyhemoglobin Sodium Potassium Chloride Carbon Dioxide BUN Creatinine Glucose POC Glucose 108 H 107 H 126 H Lactic Acid Calcium Ionized Calcium Phosphorus Magnesium Total Bilirubin AST ALT Alkaline Phosphatase Ammonia Total Creatine Kinase CK-MB (CK-2) CK-MB (CK-2) Rel Index Total Protein Albumin Urine WBC (Auto) Vancomycin Trough Salicylates Acetaminophen Plasma/Serum Alcohol Crossmatch 12/13/19 12/13/19 12/13/19 05:41 07:48 07:48 WBC 38.3 H RBC 2.37 L Hgb 6.3 L Hct 20.9 L MCH 27 L RDW 20.2 H Plt Count 546 H Lymph % (Auto) [place] % (Auto) [place] # Baso # Seg Neutrophils % Seg Neuts % (Manual) 93.0 H Lymphocytes % (Manual) 1.0 L Monocytes % (Manual) Seg Neutrophils # Seg Neutrophils # Man 35.6 H Lymphocytes # (Manual) 0.4 L Monocytes # (Manual) Eosinophils # (Manual) Basophils # (Manual) 0.4 H PT INR APTT ABG pH ABG pO2 ABG HCO3 ABG O2 Saturation ABG Base Excess ABG Hemoglobin Oxyhemoglobin Sodium 152 H Potassium 3.1 L D Chloride 111.9 H Carbon Dioxide 21 L BUN 53 H Creatinine 1.9 H Glucose 141 H POC Glucose 128 H Lactic Acid Calcium Ionized Calcium Phosphorus Magnesium Total Bilirubin AST ALT Alkaline Phosphatase 316 H Ammonia Total Creatine Kinase CK-MB (CK-2) CK-MB (CK-2) Rel Index Total Protein Albumin 2.4 L Urine WBC (Auto) Vancomycin Trough Salicylates Acetaminophen Plasma/Serum Alcohol Crossmatch 12/13/19 12/13/19 12/14/19 18:17 23:19 05:36 WBC RBC Hgb Hct MCH RDW Plt Count Lymph % (Auto) [place] % (Auto) [place] # Baso # Seg Neutrophils % Seg Neuts % (Manual) Lymphocytes % (Manual) Monocytes % (Manual) Seg Neutrophils # Seg Neutrophils # Man Lymphocytes # (Manual) Monocytes # (Manual) Eosinophils # (Manual) Basophils # (Manual) PT INR APTT ABG pH ABG pO2 ABG HCO3 ABG O2 Saturation ABG Base Excess ABG Hemoglobin Oxyhemoglobin Sodium Potassium Chloride Carbon Dioxide BUN Creatinine Glucose POC Glucose 141 H 158 H 182 H Lactic Acid Calcium Ionized Calcium Phosphorus Magnesium Total Bilirubin AST ALT Alkaline Phosphatase Ammonia Total Creatine Kinase CK-MB (CK-2) CK-MB (CK-2) Rel Index Total Protein Albumin Urine WBC (Auto) Vancomycin Trough Salicylates Acetaminophen Plasma/Serum Alcohol Crossmatch 12/14/19 12/14/19 12/14/19 08:48 08:48 10:31 WBC 33.3 H RBC 2.70 L Hgb 7.9 L 8.0 L Hct 25.3 L 24.0 L MCH RDW 19.2 H Plt Count 476 H Lymph % (Auto) [place] % (Auto) [place] # Baso # Seg Neutrophils % Seg Neuts % (Manual) Lymphocytes % (Manual) Monocytes % (Manual) Seg Neutrophils # Seg Neutrophils # Man Lymphocytes # (Manual) Monocytes # (Manual) Eosinophils # (Manual) Basophils # (Manual) PT INR APTT ABG pH ABG pO2 ABG HCO3 ABG O2 Saturation ABG Base Excess ABG Hemoglobin Oxyhemoglobin Sodium 153 H Potassium 2.5 L* Chloride 114.9 H Carbon Dioxide 20 L BUN 38 H Creatinine 1.4 H Glucose 177 H POC Glucose Lactic Acid Calcium Ionized Calcium Phosphorus Magnesium Total Bilirubin AST ALT Alkaline Phosphatase Ammonia Total Creatine Kinase CK-MB (CK-2) CK-MB (CK-2) Rel Index Total Protein Albumin Urine WBC (Auto) Vancomycin Trough Salicylates Acetaminophen Plasma/Serum Alcohol Crossmatch 12/14/19 12/14/19 12/14/19 12:57 16:15 17:50 WBC RBC Hgb Hct MCH RDW Plt Count Lymph % (Auto) [place] % (Auto) [place] # Baso # Seg Neutrophils % Seg Neuts % (Manual) Lymphocytes % (Manual) Monocytes % (Manual) Seg Neutrophils # Seg Neutrophils # Man Lymphocytes # (Manual) Monocytes # (Manual) Eosinophils # (Manual) Basophils # (Manual) PT INR APTT ABG pH ABG pO2 73.6 L ABG HCO3 ABG O2 Saturation ABG Base Excess ABG Hemoglobin 7.6 L Oxyhemoglobin 94.0 L Sodium Potassium Chloride Carbon Dioxide BUN Creatinine Glucose POC Glucose 174 H 150 H Lactic Acid Calcium Ionized Calcium Phosphorus Magnesium Total Bilirubin AST ALT Alkaline Phosphatase Ammonia Total Creatine Kinase CK-MB (CK-2) CK-MB (CK-2) Rel Index Total Protein Albumin Urine WBC (Auto) Vancomycin Trough Salicylates Acetaminophen Plasma/Serum Alcohol Crossmatch 12/15/19 12/15/19 12/15/19 00:28 05:27 07:23 WBC 30.0 H RBC 3.11 L Hgb 8.6 L Hct 27.7 L MCH RDW 20.0 H Plt Count 473 H Lymph % (Auto) [place] % (Auto) [place] # Baso # Seg Neutrophils % Seg Neuts % (Manual) Lymphocytes % (Manual) Monocytes % (Manual) Seg Neutrophils # Seg Neutrophils # Man Lymphocytes # (Manual) Monocytes # (Manual) Eosinophils # (Manual) Basophils # (Manual) PT INR APTT ABG pH ABG pO2 ABG HCO3 ABG O2 Saturation ABG Base Excess ABG Hemoglobin Oxyhemoglobin Sodium Potassium Chloride Carbon Dioxide BUN Creatinine Glucose POC Glucose 167 H 148 H Lactic Acid Calcium Ionized Calcium Phosphorus Magnesium Total Bilirubin AST ALT Alkaline Phosphatase Ammonia Total Creatine Kinase CK-MB (CK-2) CK-MB (CK-2) Rel Index Total Protein Albumin Urine WBC (Auto) Vancomycin Trough Salicylates Acetaminophen Plasma/Serum Alcohol Crossmatch 12/15/19 12/15/19 12/15/19 07:23 12:21 17:41 WBC RBC Hgb Hct MCH RDW Plt Count Lymph % (Auto) [place] % (Auto) [place] # Baso # Seg Neutrophils % Seg Neuts % (Manual) Lymphocytes % (Manual) Monocytes % (Manual) Seg Neutrophils # Seg Neutrophils # Man Lymphocytes # (Manual) Monocytes # (Manual) Eosinophils # (Manual) Basophils # (Manual) PT INR APTT ABG pH ABG pO2 ABG HCO3 ABG O2 Saturation ABG Base Excess ABG Hemoglobin Oxyhemoglobin Sodium 147 H Potassium 3.5 L D Chloride 111.2 H Carbon Dioxide 19 L BUN 29 H Creatinine Glucose 126 H POC Glucose 154 H 144 H Lactic Acid Calcium Ionized Calcium Phosphorus Magnesium Total Bilirubin AST ALT Alkaline Phosphatase Ammonia Total Creatine Kinase CK-MB (CK-2) CK-MB (CK-2) Rel Index Total Protein Albumin Urine WBC (Auto) Vancomycin Trough Salicylates Acetaminophen Plasma/Serum Alcohol Crossmatch 12/16/19 12/16/19 12/16/19 00:22 05:30 05:44 WBC 30.8 H RBC 2.58 L Hgb 7.1 L Hct 22.7 L MCH RDW 19.6 H Plt Count 451 H Lymph % (Auto) [place] % (Auto) [place] # Baso # Seg Neutrophils % Seg Neuts % (Manual) Lymphocytes % (Manual) Monocytes % (Manual) Seg Neutrophils # Seg Neutrophils # Man Lymphocytes # (Manual) Monocytes # (Manual) Eosinophils # (Manual) Basophils # (Manual) PT INR APTT ABG pH ABG pO2 ABG HCO3 ABG O2 Saturation ABG Base Excess ABG Hemoglobin Oxyhemoglobin Sodium Potassium Chloride Carbon Dioxide BUN Creatinine Glucose POC Glucose 139 H 126 H Lactic Acid Calcium Ionized Calcium Phosphorus Magnesium Total Bilirubin AST ALT Alkaline Phosphatase Ammonia Total Creatine Kinase CK-MB (CK-2) CK-MB (CK-2) Rel Index Total Protein Albumin Urine WBC (Auto) Vancomycin Trough Salicylates Acetaminophen Plasma/Serum Alcohol Crossmatch 12/16/19 12/16/19 12/16/19 05:44 11:48 17:37 WBC RBC Hgb Hct MCH RDW Plt Count Lymph % (Auto) [place] % (Auto) [place] # Baso # Seg Neutrophils % Seg Neuts % (Manual) Lymphocytes % (Manual) Monocytes % (Manual) Seg Neutrophils # Seg Neutrophils # Man Lymphocytes # (Manual) Monocytes # (Manual) Eosinophils # (Manual) Basophils # (Manual) PT INR APTT ABG pH ABG pO2 ABG HCO3 ABG O2 Saturation ABG Base Excess ABG Hemoglobin Oxyhemoglobin Sodium Potassium 3.4 L Chloride 109.2 H Carbon Dioxide 19 L BUN 27 H Creatinine Glucose 124 H POC Glucose 125 H 148 H Lactic Acid Calcium Ionized Calcium Phosphorus Magnesium Total Bilirubin AST ALT Alkaline Phosphatase Ammonia Total Creatine Kinase CK-MB (CK-2) CK-MB (CK-2) Rel Index Total Protein Albumin Urine WBC (Auto) Vancomycin Trough Salicylates Acetaminophen Plasma/Serum Alcohol Crossmatch 12/16/19 12/17/19 12/17/19 23:43 05:28 12:47 WBC RBC Hgb Hct MCH RDW Plt Count Lymph % (Auto) [place] % (Auto) [place] # Baso # Seg Neutrophils % Seg Neuts % (Manual) Lymphocytes % (Manual) Monocytes % (Manual) Seg Neutrophils # Seg Neutrophils # Man Lymphocytes # (Manual) Monocytes # (Manual) Eosinophils # (Manual) Basophils # (Manual) PT INR APTT ABG pH ABG pO2 ABG HCO3 ABG O2 Saturation ABG Base Excess ABG Hemoglobin Oxyhemoglobin Sodium Potassium Chloride Carbon Dioxide BUN Creatinine Glucose POC Glucose 142 H 140 H 125 H Lactic Acid Calcium Ionized Calcium Phosphorus Magnesium Total Bilirubin AST ALT Alkaline Phosphatase Ammonia Total Creatine Kinase CK-MB (CK-2) CK-MB (CK-2) Rel Index Total Protein Albumin Urine WBC (Auto) Vancomycin Trough Salicylates Acetaminophen Plasma/Serum Alcohol Crossmatch 12/17/19 12/17/19 12/17/19 17:05 18:00 Unknown WBC RBC Hgb Hct MCH RDW Plt Count Lymph % (Auto) [place] % (Auto) [place] # Baso # Seg Neutrophils % Seg Neuts % (Manual) Lymphocytes % (Manual) Monocytes % (Manual) Seg Neutrophils # Seg Neutrophils # Man Lymphocytes # (Manual) Monocytes # (Manual) Eosinophils # (Manual) Basophils # (Manual) PT INR APTT ABG pH ABG pO2 68.1 L ABG HCO3 ABG O2 Saturation 93.7 L ABG Base Excess ABG Hemoglobin 5.0 L Oxyhemoglobin 91.7 L Sodium Potassium Chloride Carbon Dioxide BUN Creatinine Glucose POC Glucose 140 H Lactic Acid Calcium Ionized Calcium Phosphorus Magnesium Total Bilirubin AST ALT Alkaline Phosphatase Ammonia Total Creatine Kinase CK-MB (CK-2) CK-MB (CK-2) Rel Index Total Protein Albumin Urine WBC (Auto) Vancomycin Trough Salicylates Acetaminophen Plasma/Serum Alcohol Crossmatch 12/18/19 12/18/19 12/18/19 00:16 04:53 04:53 WBC 28.6 H RBC 2.27 L Hgb 6.3 L Hct 19.5 L* MCH RDW 20.0 H Plt Count 497 H Lymph % (Auto) [place] % (Auto) [place] # Baso # Seg Neutrophils % Seg Neuts % (Manual) Lymphocytes % (Manual) Monocytes % (Manual) Seg Neutrophils # Seg Neutrophils # Man Lymphocytes # (Manual) Monocytes # (Manual) Eosinophils # (Manual) Basophils # (Manual) PT INR APTT ABG pH ABG pO2 ABG HCO3 ABG O2 Saturation ABG Base Excess ABG Hemoglobin Oxyhemoglobin Sodium Potassium Chloride 107.9 H Carbon Dioxide 20 L BUN 27 H Creatinine 0.6 L Glucose 116 H POC Glucose 123 H Lactic Acid Calcium Ionized Calcium Phosphorus Magnesium Total Bilirubin AST ALT Alkaline Phosphatase Ammonia Total Creatine Kinase CK-MB (CK-2) CK-MB (CK-2) Rel Index Total Protein Albumin Urine WBC (Auto) Vancomycin Trough Salicylates Acetaminophen Plasma/Serum Alcohol Crossmatch 12/18/19 12/18/19 12/18/19 06:38 11:22 12:08 WBC RBC Hgb Hct MCH RDW Plt Count Lymph % (Auto) [place] % (Auto) [place] # Baso # Seg Neutrophils % Seg Neuts % (Manual) Lymphocytes % (Manual) Monocytes % (Manual) Seg Neutrophils # Seg Neutrophils # Man Lymphocytes # (Manual) Monocytes # (Manual) Eosinophils # (Manual) Basophils # (Manual) PT INR APTT ABG pH ABG pO2 ABG HCO3 ABG O2 Saturation ABG Base Excess ABG Hemoglobin Oxyhemoglobin Sodium Potassium Chloride Carbon Dioxide BUN Creatinine Glucose POC Glucose 120 H 127 H Lactic Acid Calcium Ionized Calcium Phosphorus Magnesium Total Bilirubin AST ALT Alkaline Phosphatase Ammonia Total Creatine Kinase CK-MB (CK-2) CK-MB (CK-2) Rel Index Total Protein Albumin Urine WBC (Auto) Vancomycin Trough Salicylates Acetaminophen Plasma/Serum Alcohol Crossmatch See Detail 12/18/19 12/18/19 12/18/19 14:05 17:49 23:53 WBC RBC Hgb Hct MCH RDW Plt Count Lymph % (Auto) [place] % (Auto) [place] # Baso # Seg Neutrophils % Seg Neuts % (Manual) Lymphocytes % (Manual) Monocytes % (Manual) Seg Neutrophils # Seg Neutrophils # Man Lymphocytes # (Manual) Monocytes # (Manual) Eosinophils # (Manual) Basophils # (Manual) PT INR APTT ABG pH 7.267 L ABG pO2 69.8 L ABG HCO3 ABG O2 Saturation 88.4 L ABG Base Excess ABG Hemoglobin 7.1 L Oxyhemoglobin 86.4 L Sodium Potassium Chloride Carbon Dioxide BUN Creatinine Glucose POC Glucose 157 H 128 H Lactic Acid Calcium Ionized Calcium Phosphorus Magnesium Total Bilirubin AST ALT Alkaline Phosphatase Ammonia Total Creatine Kinase CK-MB (CK-2) CK-MB (CK-2) Rel Index Total Protein Albumin Urine WBC (Auto) Vancomycin Trough Salicylates Acetaminophen Plasma/Serum Alcohol Crossmatch 12/19/19 12/19/19 12/19/19 03:37 03:37 05:25 WBC 31.3 H RBC 2.60 L Hgb 7.6 L Hct 23.0 L MCH RDW 19.4 H Plt Count 530 H Lymph % (Auto) [place] % (Auto) [place] # Baso # Seg Neutrophils % Seg Neuts % (Manual) Lymphocytes % (Manual) Monocytes % (Manual) Seg Neutrophils # Seg Neutrophils # Man Lymphocytes # (Manual) Monocytes # (Manual) Eosinophils # (Manual) Basophils # (Manual) PT INR APTT ABG pH ABG pO2 ABG HCO3 ABG O2 Saturation ABG Base Excess ABG Hemoglobin Oxyhemoglobin Sodium Potassium Chloride Carbon Dioxide 18 L BUN 36 H Creatinine Glucose 111 H POC Glucose 123 H Lactic Acid Calcium Ionized Calcium Phosphorus Magnesium Total Bilirubin AST ALT Alkaline Phosphatase Ammonia Total Creatine Kinase CK-MB (CK-2) CK-MB (CK-2) Rel Index Total Protein Albumin Urine WBC (Auto) Vancomycin Trough Salicylates Acetaminophen Plasma/Serum Alcohol Crossmatch 12/19/19 12/19/19 12/20/19 12:59 18:33 00:00 WBC RBC Hgb Hct MCH RDW Plt Count Lymph % (Auto) [place] % (Auto) [place] # Baso # Seg Neutrophils % Seg Neuts % (Manual) Lymphocytes % (Manual) Monocytes % (Manual) Seg Neutrophils # Seg Neutrophils # Man Lymphocytes # (Manual) Monocytes # (Manual) Eosinophils # (Manual) Basophils # (Manual) PT INR APTT ABG pH ABG pO2 ABG HCO3 ABG O2 Saturation ABG Base Excess ABG Hemoglobin Oxyhemoglobin Sodium Potassium Chloride Carbon Dioxide BUN Creatinine Glucose POC Glucose 130 H 118 H 135 H Lactic Acid Calcium Ionized Calcium Phosphorus Magnesium Total Bilirubin AST ALT Alkaline Phosphatase Ammonia Total Creatine Kinase CK-MB (CK-2) CK-MB (CK-2) Rel Index Total Protein Albumin Urine WBC (Auto) Vancomycin Trough Salicylates Acetaminophen Plasma/Serum Alcohol Crossmatch 12/20/19 12/20/19 12/20/19 05:46 12:31 18:07 WBC RBC Hgb Hct MCH RDW Plt Count Lymph % (Auto) [place] % (Auto) [place] # Baso # Seg Neutrophils % Seg Neuts % (Manual) Lymphocytes % (Manual) Monocytes % (Manual) Seg Neutrophils # Seg Neutrophils # Man Lymphocytes # (Manual) Monocytes # (Manual) Eosinophils # (Manual) Basophils # (Manual) PT INR APTT ABG pH ABG pO2 ABG HCO3 ABG O2 Saturation ABG Base Excess ABG Hemoglobin Oxyhemoglobin Sodium Potassium Chloride Carbon Dioxide BUN Creatinine Glucose POC Glucose 131 H 128 H 134 H Lactic Acid Calcium Ionized Calcium Phosphorus Magnesium Total Bilirubin AST ALT Alkaline Phosphatase Ammonia Total Creatine Kinase CK-MB (CK-2) CK-MB (CK-2) Rel Index Total Protein Albumin Urine WBC (Auto) Vancomycin Trough Salicylates Acetaminophen Plasma/Serum Alcohol Crossmatch 12/21/19 12/21/19 12/21/19 03:28 03:28 07:21 WBC 29.4 H RBC 2.30 L Hgb 6.8 L Hct 20.2 L MCH RDW 20.2 H Plt Count 746 H Lymph % (Auto) [place] % (Auto) [place] # Baso # Seg Neutrophils % Seg Neuts % (Manual) 85.0 H Lymphocytes % (Manual) 8.0 L Monocytes % (Manual) Seg Neutrophils # Seg Neutrophils # Man 25.0 H Lymphocytes # (Manual) Monocytes # (Manual) 1.5 H Eosinophils # (Manual) 0.6 H Basophils # (Manual) PT INR APTT ABG pH ABG pO2 ABG HCO3 ABG O2 Saturation ABG Base Excess ABG Hemoglobin Oxyhemoglobin Sodium Potassium Chloride Carbon Dioxide 17 L BUN 57 H Creatinine 1.4 H D Glucose POC Glucose 124 H Lactic Acid Calcium Ionized Calcium Phosphorus Magnesium Total Bilirubin AST ALT Alkaline Phosphatase Ammonia Total Creatine Kinase CK-MB (CK-2) CK-MB (CK-2) Rel Index Total Protein Albumin Urine WBC (Auto) Vancomycin Trough Salicylates Acetaminophen Plasma/Serum Alcohol Crossmatch 12/21/19 12/21/19 12/21/19 08:56 12:06 14:53 WBC RBC Hgb 7.2 L Hct 22.9 L MCH RDW Plt Count Lymph % (Auto) [place] % (Auto) [place] # Baso # Seg Neutrophils % Seg Neuts % (Manual) Lymphocytes % (Manual) Monocytes % (Manual) Seg Neutrophils # Seg Neutrophils # Man Lymphocytes # (Manual) Monocytes # (Manual) Eosinophils # (Manual) Basophils # (Manual) PT INR APTT ABG pH ABG pO2 ABG HCO3 ABG O2 Saturation ABG Base Excess ABG Hemoglobin Oxyhemoglobin Sodium Potassium Chloride Carbon Dioxide BUN Creatinine Glucose POC Glucose 116 H Lactic Acid Calcium Ionized Calcium Phosphorus Magnesium Total Bilirubin AST ALT Alkaline Phosphatase Ammonia Total Creatine Kinase CK-MB (CK-2) CK-MB (CK-2) Rel Index Total Protein Albumin Urine WBC (Auto) Vancomycin Trough 33.8 H Salicylates Acetaminophen Plasma/Serum Alcohol Crossmatch 12/21/19 12/21/19 12/21/19 14:54 17:27 23:49 WBC RBC Hgb Hct MCH RDW Plt Count Lymph % (Auto) [place] % (Auto) [place] # Baso # Seg Neutrophils % Seg Neuts % (Manual) Lymphocytes % (Manual) Monocytes % (Manual) Seg Neutrophils # Seg Neutrophils # Man Lymphocytes # (Manual) Monocytes # (Manual) Eosinophils # (Manual) Basophils # (Manual) PT INR APTT ABG pH ABG pO2 ABG HCO3 ABG O2 Saturation ABG Base Excess ABG Hemoglobin Oxyhemoglobin Sodium Potassium Chloride Carbon Dioxide BUN Creatinine Glucose POC Glucose 145 H 127 H Lactic Acid Calcium Ionized Calcium Phosphorus Magnesium Total Bilirubin AST ALT Alkaline Phosphatase Ammonia Total Creatine Kinase CK-MB (CK-2) CK-MB (CK-2) Rel Index Total Protein Albumin Urine WBC (Auto) Vancomycin Trough Salicylates Acetaminophen Plasma/Serum Alcohol Crossmatch See Detail 0412/22/19 12/22/19 04:43 05:56 08:40 WBC RBC Hgb Hct MCH RDW Plt Count Lymph % (Auto) [place] % (Auto) [place] # Baso # Seg Neutrophils % Seg Neuts % (Manual) Lymphocytes % (Manual) Monocytes % (Manual) Seg Neutrophils # Seg Neutrophils # Man Lymphocytes # (Manual) Monocytes # (Manual) Eosinophils # (Manual) Basophils # (Manual) PT INR APTT ABG pH ABG pO2 75.6 L ABG HCO3 ABG O2 Saturation ABG Base Excess -2.6 L ABG Hemoglobin 6.8 L Oxyhemoglobin 94.6 L Sodium Potassium Chloride Carbon Dioxide 17 L BUN 60 H Creatinine 1.4 H Glucose 126 H POC Glucose 153 H Lactic Acid Calcium Ionized Calcium Phosphorus Magnesium Total Bilirubin AST ALT Alkaline Phosphatase Ammonia Total Creatine Kinase CK-MB (CK-2) CK-MB (CK-2) Rel Index Total Protein Albumin Urine WBC (Auto) Vancomycin Trough Salicylates Acetaminophen Plasma/Serum Alcohol Crossmatch 12/22/19 12/22/19 12/23/19 12:07 17:49 04:30 WBC 22.4 H RBC 2.68 L Hgb 7.6 L Hct 22.9 L MCH RDW 19.9 H Plt Count 998 H Lymph % (Auto) [place] % (Auto) [place] # Baso # Seg Neutrophils % Seg Neuts % (Manual) 88.0 H Lymphocytes % (Manual) 2.0 L Monocytes % (Manual) 9.0 H Seg Neutrophils # Seg Neutrophils # Man 19.7 H Lymphocytes # (Manual) 0.4 L Monocytes # (Manual) 2.0 H Eosinophils # (Manual) Basophils # (Manual) PT INR APTT ABG pH ABG pO2 ABG HCO3 ABG O2 Saturation ABG Base Excess ABG Hemoglobin Oxyhemoglobin Sodium Potassium Chloride Carbon Dioxide BUN Creatinine Glucose POC Glucose 140 H 116 H Lactic Acid Calcium Ionized Calcium Phosphorus Magnesium Total Bilirubin AST ALT Alkaline Phosphatase Ammonia Total Creatine Kinase CK-MB (CK-2) CK-MB (CK-2) Rel Index Total Protein Albumin Urine WBC (Auto) Vancomycin Trough Salicylates Acetaminophen Plasma/Serum Alcohol Crossmatch 12/23/19 12/23/19 12/23/19 04:30 12:00 18:06 WBC RBC Hgb Hct MCH RDW Plt Count Lymph % (Auto) [place] % (Auto) [place] # Baso # Seg Neutrophils % Seg Neuts % (Manual) Lymphocytes % (Manual) Monocytes % (Manual) Seg Neutrophils # Seg Neutrophils # Man Lymphocytes # (Manual) Monocytes # (Manual) Eosinophils # (Manual) Basophils # (Manual) PT INR APTT ABG pH ABG pO2 ABG HCO3 ABG O2 Saturation ABG Base Excess ABG Hemoglobin Oxyhemoglobin Sodium Potassium 5.2 H Chloride Carbon Dioxide 21 L BUN 69 H Creatinine 1.5 H Glucose 117 H POC Glucose 128 H 138 H Lactic Acid Calcium Ionized Calcium Phosphorus Magnesium Total Bilirubin AST ALT Alkaline Phosphatase Ammonia Total Creatine Kinase CK-MB (CK-2) CK-MB (CK-2) Rel Index Total Protein Albumin Urine WBC (Auto) Vancomycin Trough Salicylates Acetaminophen Plasma/Serum Alcohol Crossmatch 12/23/19 12/24/19 12/24/19 23:46 04:31 05:08 WBC RBC Hgb Hct MCH RDW Plt Count Lymph % (Auto) [place] % (Auto) [place] # Baso # Seg Neutrophils % Seg Neuts % (Manual) Lymphocytes % (Manual) Monocytes % (Manual) Seg Neutrophils # Seg Neutrophils # Man Lymphocytes # (Manual) Monocytes # (Manual) Eosinophils # (Manual) Basophils # (Manual) PT INR APTT ABG pH ABG pO2 ABG HCO3 ABG O2 Saturation ABG Base Excess ABG Hemoglobin Oxyhemoglobin Sodium Potassium 5.3 H Chloride 107.6 H Carbon Dioxide 20 L BUN 72 H Creatinine 1.6 H Glucose 120 H POC Glucose 120 H 140 H Lactic Acid Calcium Ionized Calcium Phosphorus Magnesium Total Bilirubin AST ALT Alkaline Phosphatase Ammonia Total Creatine Kinase CK-MB (CK-2) CK-MB (CK-2) Rel Index Total Protein Albumin Urine WBC (Auto) Vancomycin Trough Salicylates Acetaminophen Plasma/Serum Alcohol Crossmatch 12/24/19 12/24/19 12/25/19 11:58 17:49 03:47 WBC 36.2 H RBC 2.92 L Hgb 8.4 L Hct 26.1 L MCH RDW 20.2 H Plt Count 942 H Lymph % (Auto) [place] % (Auto) [place] # Baso # Seg Neutrophils % Seg Neuts % (Manual) 97.5 H Lymphocytes % (Manual) 1.0 L Monocytes % (Manual) Seg Neutrophils # Seg Neutrophils # Man 35.3 H Lymphocytes # (Manual) 0.4 L Monocytes # (Manual) Eosinophils # (Manual) Basophils # (Manual) PT INR APTT ABG pH ABG pO2 ABG HCO3 ABG O2 Saturation ABG Base Excess ABG Hemoglobin Oxyhemoglobin Sodium Potassium Chloride Carbon Dioxide BUN Creatinine Glucose POC Glucose 146 H 131 H Lactic Acid Calcium Ionized Calcium Phosphorus Magnesium Total Bilirubin AST ALT Alkaline Phosphatase Ammonia Total Creatine Kinase CK-MB (CK-2) CK-MB (CK-2) Rel Index Total Protein Albumin Urine WBC (Auto) Vancomycin Trough Salicylates Acetaminophen Plasma/Serum Alcohol Crossmatch 12/25/19 12/25/19 12/25/19 03:47 05:30 12:23 WBC RBC Hgb Hct MCH RDW Plt Count Lymph % (Auto) [place] % (Auto) [place] # Baso # Seg Neutrophils % Seg Neuts % (Manual) Lymphocytes % (Manual) Monocytes % (Manual) Seg Neutrophils # Seg Neutrophils # Man Lymphocytes # (Manual) Monocytes # (Manual) Eosinophils # (Manual) Basophils # (Manual) PT INR APTT ABG pH ABG pO2 ABG HCO3 ABG O2 Saturation ABG Base Excess ABG Hemoglobin Oxyhemoglobin Sodium Potassium Chloride Carbon Dioxide 15 L BUN 70 H Creatinine 1.7 H Glucose 153 H POC Glucose 169 H 135 H Lactic Acid Calcium Ionized Calcium Phosphorus Magnesium Total Bilirubin AST ALT Alkaline Phosphatase Ammonia Total Creatine Kinase CK-MB (CK-2) CK-MB (CK-2) Rel Index Total Protein Albumin Urine WBC (Auto) Vancomycin Trough Salicylates Acetaminophen Plasma/Serum Alcohol Crossmatch 12/25/19 12/25/19 12/26/19 17:37 23:29 09:47 WBC 22.1 H RBC 2.83 L Hgb 7.9 L Hct 25.5 L MCH RDW 20.0 H Plt Count 894 H Lymph % (Auto) [place] % (Auto) [place] # Baso # Seg Neutrophils % Seg Neuts % (Manual) Lymphocytes % (Manual) Monocytes % (Manual) Seg Neutrophils # Seg Neutrophils # Man Lymphocytes # (Manual) Monocytes # (Manual) Eosinophils # (Manual) Basophils # (Manual) PT INR APTT ABG pH ABG pO2 ABG HCO3 ABG O2 Saturation ABG Base Excess ABG Hemoglobin Oxyhemoglobin Sodium Potassium Chloride Carbon Dioxide BUN Creatinine Glucose POC Glucose 120 H 140 H Lactic Acid Calcium Ionized Calcium Phosphorus Magnesium Total Bilirubin AST ALT Alkaline Phosphatase Ammonia Total Creatine Kinase CK-MB (CK-2) CK-MB (CK-2) Rel Index Total Protein Albumin Urine WBC (Auto) Vancomycin Trough Salicylates Acetaminophen Plasma/Serum Alcohol Crossmatch 12/26/19 12/26/19 12/26/19 09:47 11:46 17:52 WBC RBC Hgb Hct MCH RDW Plt Count Lymph % (Auto) [place] % (Auto) [place] # Baso # Seg Neutrophils % Seg Neuts % (Manual) Lymphocytes % (Manual) Monocytes % (Manual) Seg Neutrophils # Seg Neutrophils # Man Lymphocytes # (Manual) Monocytes # (Manual) Eosinophils # (Manual) Basophils # (Manual) PT INR APTT ABG pH ABG pO2 ABG HCO3 ABG O2 Saturation ABG Base Excess ABG Hemoglobin Oxyhemoglobin Sodium Potassium Chloride Carbon Dioxide 18 L BUN 65 H Creatinine 1.4 H Glucose 132 H POC Glucose 110 H 145 H Lactic Acid Calcium Ionized Calcium Phosphorus Magnesium Total Bilirubin AST ALT Alkaline Phosphatase Ammonia Total Creatine Kinase CK-MB (CK-2) CK-MB (CK-2) Rel Index Total Protein Albumin Urine WBC (Auto) Vancomycin Trough Salicylates Acetaminophen Plasma/Serum Alcohol Crossmatch 12/27/19 12/27/19 12/27/19 00:01 03:42 03:42 WBC 18.0 H RBC 2.86 L Hgb 8.0 L Hct 25.2 L MCH RDW 19.2 H Plt Count 873 H Lymph % (Auto) 8.4 L [place] % (Auto) 7.5 H [place] # 1.4 H Baso # 0.2 H Seg Neutrophils % 82.2 H Seg Neuts % (Manual) Lymphocytes % (Manual) Monocytes % (Manual) Seg Neutrophils # 14.8 H Seg Neutrophils # Man Lymphocytes # (Manual) Monocytes # (Manual) Eosinophils # (Manual) Basophils # (Manual) PT INR APTT ABG pH ABG pO2 ABG HCO3 ABG O2 Saturation ABG Base Excess ABG Hemoglobin Oxyhemoglobin Sodium Potassium Chloride Carbon Dioxide BUN 73 H Creatinine 1.4 H Glucose 119 H POC Glucose 124 H Lactic Acid Calcium Ionized Calcium Phosphorus Magnesium Total Bilirubin AST ALT Alkaline Phosphatase Ammonia Total Creatine Kinase CK-MB (CK-2) CK-MB (CK-2) Rel Index Total Protein Albumin Urine WBC (Auto) Vancomycin Trough Salicylates Acetaminophen Plasma/Serum Alcohol Crossmatch 12/27/19 12/27/19 12/27/19 05:45 11:45 17:29 WBC RBC Hgb Hct MCH RDW Plt Count Lymph % (Auto) [place] % (Auto) [place] # Baso # Seg Neutrophils % Seg Neuts % (Manual) Lymphocytes % (Manual) Monocytes % (Manual) Seg Neutrophils # Seg Neutrophils # Man Lymphocytes # (Manual) Monocytes # (Manual) Eosinophils # (Manual) Basophils # (Manual) PT INR APTT ABG pH ABG pO2 ABG HCO3 ABG O2 Saturation ABG Base Excess ABG Hemoglobin Oxyhemoglobin Sodium Potassium Chloride Carbon Dioxide BUN Creatinine Glucose POC Glucose 131 H 123 H 134 H Lactic Acid Calcium Ionized Calcium Phosphorus Magnesium Total Bilirubin AST ALT Alkaline Phosphatase Ammonia Total Creatine Kinase CK-MB (CK-2) CK-MB (CK-2) Rel Index Total Protein Albumin Urine WBC (Auto) Vancomycin Trough Salicylates Acetaminophen Plasma/Serum Alcohol Crossmatch 12/28/19 12/28/19 12/28/19 00:12 05:14 11:53 WBC RBC Hgb Hct MCH RDW Plt Count Lymph % (Auto) [place] % (Auto) [place] # Baso # Seg Neutrophils % Seg Neuts % (Manual) Lymphocytes % (Manual) Monocytes % (Manual) Seg Neutrophils # Seg Neutrophils # Man Lymphocytes # (Manual) Monocytes # (Manual) Eosinophils # (Manual) Basophils # (Manual) PT INR APTT ABG pH ABG pO2 ABG HCO3 ABG O2 Saturation ABG Base Excess ABG Hemoglobin Oxyhemoglobin Sodium Potassium Chloride Carbon Dioxide BUN Creatinine Glucose POC Glucose 138 H 130 H 146 H Lactic Acid Calcium Ionized Calcium Phosphorus Magnesium Total Bilirubin AST ALT Alkaline Phosphatase Ammonia Total Creatine Kinase CK-MB (CK-2) CK-MB (CK-2) Rel Index Total Protein Albumin Urine WBC (Auto) Vancomycin Trough Salicylates Acetaminophen Plasma/Serum Alcohol Crossmatch 12/28/19 12/29/19 17:39 00:01 WBC RBC Hgb Hct MCH RDW Plt Count Lymph % (Auto) [place] % (Auto) [place] # Baso # Seg Neutrophils % Seg Neuts % (Manual) Lymphocytes % (Manual) Monocytes % (Manual) Seg Neutrophils # Seg Neutrophils # Man Lymphocytes # (Manual) Monocytes # (Manual) Eosinophils # (Manual) Basophils # (Manual) PT INR APTT ABG pH ABG pO2 ABG HCO3 ABG O2 Saturation ABG Base Excess ABG Hemoglobin Oxyhemoglobin Sodium Potassium Chloride Carbon Dioxide BUN Creatinine Glucose POC Glucose 117 H 139 H Lactic Acid Calcium Ionized Calcium Phosphorus Magnesium Total Bilirubin AST ALT Alkaline Phosphatase Ammonia Total Creatine Kinase CK-MB (CK-2) CK-MB (CK-2) Rel Index Total Protein Albumin Urine WBC (Auto) Vancomycin Trough Salicylates Acetaminophen Plasma/Serum Alcohol Crossmatch Allied health notes reviewed: RT
[2019-12-29] MEDS: QUEtiapine 100 MG TAB PO SCH (22:07)
[2019-12-30 01:25] LABS: Basophils # (Auto) 0.1 K/mm3 (0.0-0.1); Basophils % (Auto) 0.6 % (0.0-1.8); Eosinophils # (Auto) 0.2 K/mm3 (0.0-0.4); Eosinophils % (Auto) 1.1 % (0.0-4.3); Hematocrit 25.4 % (30.3-42.9); Hemoglobin 8.2 gm/dl (10.1-14.3); Lymphocytes # (Auto) 1.6 K/mm3 (1.2-5.4); Lymphocytes % (Auto) 9.4 % (13.4-35.0); Mean Corpuscular HGB Conc 32 % (30-34); Mean Corpuscular Volume 87 fl (79-97); Monocytes # (Auto) 0.9 K/mm3 (0.0-0.8); Monocytes % (Auto) 5.4 % (0.0-7.3); Platelet Count 708 K/mm3 (140-440); Red Blood Count 2.91 M/mm3 (3.65-5.03); Red Cell Distribution Width 18.7 % (13.2-15.2)
[2019-12-30 01:48] LABS: BUN/Creatinine Ratio 64; Blood Urea Nitrogen 70 mg/dL (7-17); Calcium 9.8 mg/dL (8.4-10.2); Hemolysis Index 3
[2019-12-30] MEDS: metroNIDAZOLE 500 MG TAB PO SCH (05:08)
[2019-12-30 05:29] LABS: ABG Base Excess 0.3 mmol/L (-2.0-3.0); ABG HCO3 24.3 mmol/L (20.0-26.0); ABG Methemoglobin 0.5 % (0.0-1.5); ABG Oxygen Saturation 97.3 % (95.0-99.0); ABG PCO2 36.6 mm Hg; ABG PH 7.44 pH Units (7.350-7.450); ABG PO2 89.9 mm Hg (80.0-90.0)
[2019-12-30] MEDS: levETIRAcetam 500 MG/5 ML ORAL LIQD PO SCH ×2 (09:12→21:35)
[2019-12-30] MEDS: MIRTAZAPINE 30 MG TAB PO SCH (09:13)
[2019-12-30] MEDS: QUEtiapine 200 MG TAB PO SCH (09:13)
[2019-12-30] MEDS: hydrOXYzine PAMOATE 25 MG CAP PO SCH ×2 (09:13→21:37)
[2019-12-30] MEDS: SERTRALINE 25 MG TAB PO SCH (09:13)
[2019-12-30] MEDS: LANSOPRAZOLE 30 MG SOLUTAB FEEDTUBE SCH (09:13)
[2019-12-30] MEDS: GLYCOPYRROLATE 1 MG TAB PO SCH ×3 (09:13→19:51)
[2019-12-30] MEDS: TAMSULOSIN 0.4 MG CAP PO SCH (09:13)
--- NOTE | 2019-12-30 10:03 | Progress Note ---
Assessment and Plan Assessment and plan: Patient is a 54-year-old woman with a history of Hypertension, Depression, tobacco and alcohol dependency who presented to [facility] ED on 11/22/2019 due to cardiac arrest outside of the hospital. EMS found pt in PEA. Upon their arrival patient in sinus tachycardia. EMS were unable to intubate patient with a ET tube because she was clenching down therefore Joe airway placed per records. Patient received Narcan and Epinephrine. Patient's rhythm changed to PEA to sinus bradycardia, to PEA, then to sinus tach after receiving Narcan and Epinephrine. Per the ED physician who evaluated pt, Patient presented with a pulse, intermittent respirations, and bagging support via Joe airway with O2 sat of 100%. Accu-Chek of 71 obtained by EMS Status post cardiac arrest, etiology unknown Acute respiratory failure with hypoxia s/p Intubation via ETT >96 hours: Trach and PEG planned, CCM following Acute cystitis with Sepsis, not sure POA, treated with antibiotics and this completed a few days 11/29/2019 ago no growth was noted on cultures no fever. We will continue off antibiotics at this time. Seizure disorder: treat with Keppra Presumed anoxic brain injury: Neurology is following Alcohol abuse: CIWA protocol Acute metabolic encephalopathy/toxic encephalopathy due to the above BHAVANA secondary to vasomotor nephropathy: treat with IVF Hypertension: watch bp closely, prn IV antihypertensives prn Distended abdomen: treat with NGT to suction Transaminitis with Ischemic hepatitis Metabolic acidosis/alcoholic acidosis/lactic acidosis H. Influenzae, tracheobronchitis Hypernatremia: free water and monitor bmp closely >DNR DVT ppx: held sq heparin due to drop in h/h and anemia 12/04-: Patient failed CPAP trial became apneic according to documentation. No clinical change, continue current management, monitor H/H Awaiting labs. No new changes at this time opens eyes. Surgeon discussed trach and PEG with family but they want to get more information about hospice which they have been directed to the telephonic nurse case manager. Patient overnight had a episode of vomiting. Zofran started. 12/11/19: I took over patient care on day 18, Patient remains intubated, daily weaning trails. Trach and PEG planned once family consents. Mother is Anh Jesus @ [phone]. CCT 31 minutes 12/12/19: transfuse PRBC, s/p trach and PEG 12/13/19: Trach and PEG done, New fevers today, suspected Aspiration Pneumonitis vs Atelectasis; get blood cultures and empirically treat with ABX, levaquin/flagyl IV combo. Renewed restraints. ARF improved drastically as Cr went from 2.8 to 1.9 overnigh. however, WBC skyrocketed to 38.3k from 18k. Will repeat bmp and cbc, CCT 33 minutes 12/14/19: WBC improved slightly, potassium 2.5, renal function continue to improve. replete potassium, still febrile, re-consulted ID; give free water flushes via PEG. Dispo: aggressive wean and once off vent will have to discharge home, no insurance. 12/15/19: Still on MV Peep 6 fiO2 50%, ordered AM labs, renewed restraints. Right arm swollen, get Venous doppler-not done today due to COVID-19-->tomorrow 12/16/19: still on MV, PEEP 6 FiO2 30%, replete potassium, renewed restraints, give Tylenol of fevers (first real temp >100.4 since 12/14/19), green-culture, get CXR, UA. Venous doppler done and negative for DVT 12/17/19: Day 24 on MV, PEEP 6 FiO2 30%, trying to wean, held sq heparin due to drop in h/h and anemia, renewed restraints, fever appears to be due to worsening pneumonia, UA negative, pCXR Impression: Slight interval worsening of a consolidative opacity in the left mid to lower lung, worrisome for pneumonia in the appropriate clinical setting. Adjust Vancomycin dose continue cefepime with ID following. Swollen right arm with Venous doppler of right arm r/o DVT ordered but not done due to COVID-19, 12/25/19: Resumed care, Hospice discussed yesterday, will follow up. WBC increased to 36.4k, hgb steady at 8.4, +FOBT, Cr creeping up at 1.7 12/26/19: I called Jeremy Anh Jesus ([phone]) and she asked if I could call her back. Patient remains in PVS (persistent vegetative state) with poor prognosis, doesn't really need restraints, still needing Mechanical Ventilation/Life support. Not sedated Possible withdraw today, I called Dr. Naik. I called and d/w mother, she wants to come and withdraw daughter from [facility] tomorrow evening around 6-7pm 12/27/19: still poor prognosis, still in PVS, anticipate Withdrawal today==>d/w Dr. Aldana and he would prefer withdrawal at Hospice facility, d/w mother multiple times, I waited until 7pm to met but they came shortly after. They did sign the DNR form. 12/28/19: still poor prognosis, does not restraints, hopefully to Hospice inpatient Patient has been on MV/life support for 35 days, I not sure she is weanable, d/w Dr. Hernandez 12/29/19: still poor prognosis, still Intubated but not sedated, will grimace now, no purposeful movement. CPAP trial today, trying to wean. 12/30/19: still intubated via trach, more responsive, still unable to move, no restraints needed. History Interval history: Patient was seen and examined. Follow-up on current diagnosis of Respiratory failure. Overnight uneventful as no events directly reported to me. Imaging, nursing note, chart, labs and old chart reviewed. PUI?: No COVID19: Negative Hospitalist Physical - Physical exam Narrative exam: Gen: critical ill, intubated, unresponsive not on sedation HEENT: ETT in place Neck: supple, no adenopathy, no thyromegaly, no JVD CVS/Heart: Regular Tachycardia, normal S1S2, pulses present bilaterally Chest/Lungs: CTA B, Symmetrical chest expansion, good air entry bilaterally GI/Abdomen: soft, NTND, good bowel sounds, no guarding or rebound MSK: right arm swollen Neuro: doesnt follow commands Psych: not responding - Constitutional Vitals: Temp Pulse Resp BP Pulse Ox 98.2 F 107 H 18 155/95 100 12/30/19 07:50 12/30/19 09:00 12/30/19 09:00 12/30/19 09:00 12/30/19 09:00 General appearance: Present: no acute distress, other (on vent with sedation) Results - Labs CBC & Chem 7: 12/30/19 01:06 12/30/19 01:06 Labs: Laboratory Last Values WBC 16.7 K/mm3 (4.5-11.0) H 12/30/19 01:06 RBC 2.91 M/mm3 (3.65-5.03) L 12/30/19 01:06 Hgb 8.2 gm/dl (10.1-14.3) L 12/30/19 01:06 Hct 25.4 % (30.3-42.9) L 12/30/19 01:06 MCV 87 fl (79-97) 12/30/19 01:06 MCH 28 pg (28-32) 12/30/19 01:06 MCHC 32 % (30-34) 12/30/19 01:06 RDW 18.7 % (13.2-15.2) H 12/30/19 01:06 Plt Count 708 K/mm3 (140-440) H 12/30/19 01:06 Lymph % (Auto) 9.4 % (13.4-35.0) L 12/30/19 01:06 [place] % (Auto) 5.4 % (0.0-7.3) 12/30/19 01:06 Eos % (Auto) 1.1 % (0.0-4.3) 12/30/19 01:06 Baso % (Auto) 0.6 % (0.0-1.8) 12/30/19 01:06 Lymph # 1.6 K/mm3 (1.2-5.4) 12/30/19 01:06 [place] # 0.9 K/mm3 (0.0-0.8) H 12/30/19 01:06 Eos # 0.2 K/mm3 (0.0-0.4) 12/30/19 01:06 Baso # 0.1 K/mm3 (0.0-0.1) 12/30/19 01:06 Add Manual Diff Complete 12/25/19 03:47 Total Counted 200 12/25/19 03:47 Seg Neutrophils % 83.5 % (40.0-70.0) H 12/30/19 01:06 Seg Neuts % (Manual) 97.5 % (40.0-70.0) H 12/25/19 03:47 Band Neutrophils % 0 % 12/25/19 03:47 Lymphocytes % (Manual) 1.0 % (13.4-35.0) L 12/25/19 03:47 Reactive Lymphs % (Man) 0 % 12/25/19 03:47 Monocytes % (Manual) 1.5 % (0.0-7.3) 12/25/19 03:47 Eosinophils % (Manual) 0 % (0.0-4.3) 12/25/19 03:47 Basophils % (Manual) 0 % (0.0-1.8) 12/25/19 03:47 Metamyelocytes % 0 % 12/25/19 03:47 Myelocytes % 0 % 12/25/19 03:47 Promyelocytes % 0 % 12/25/19 03:47 Blast Cells % 0 % 12/25/19 03:47 Nucleated RBC % Not Reportable 12/25/19 03:47 Seg Neutrophils # 14.0 K/mm3 (1.8-7.7) H 12/30/19 01:06 Seg Neutrophils # Man 35.3 K/mm3 (1.8-7.7) H 12/25/19 03:47 Band Neutrophils # 0.0 K/mm3 12/25/19 03:47 Lymphocytes # (Manual) 0.4 K/mm3 (1.2-5.4) L 12/25/19 03:47 Abs React Lymphs (Man) 0.0 K/mm3 12/25/19 03:47 Monocytes # (Manual) 0.5 K/mm3 (0.0-0.8) 12/25/19 03:47 Eosinophils # (Manual) 0.0 K/mm3 (0.0-0.4) 12/25/19 03:47 Basophils # (Manual) 0.0 K/mm3 (0.0-0.1) 12/25/19 03:47 Metamyelocytes # 0.0 K/mm3 12/25/19 03:47 Myelocytes # 0.0 K/mm3 12/25/19 03:47 Promyelocytes # 0.0 K/mm3 12/25/19 03:47 Blast Cells # 0.0 K/mm3 12/25/19 03:47 Pathologist Review 12/13/19 07:48 WBC Morphology Not Reportable 12/25/19 03:47 Hypersegmented Neuts Not Reportable 12/25/19 03:47 Hyposegmented Neuts Not Reportable 12/25/19 03:47 Hypogranular Neuts Not Reportable 12/25/19 03:47 Smudge Cells Not Reportable 12/25/19 03:47 Toxic Granulation Not Reportable 12/25/19 03:47 Toxic Vacuolation Not Reportable 12/25/19 03:47 Dohle Bodies Not Reportable 12/25/19 03:47 Pelger-Huet Anomaly Not Reportable 12/25/19 03:47 Dominique Rods Not Reportable 12/25/19 03:47 Platelet Estimate Consistent w auto 12/25/19 03:47 Clumped Platelets Not Reportable 12/25/19 03:47 Plt Clumps, EDTA Not Reportable 12/25/19 03:47 Large Platelets Not Reportable 12/25/19 03:47 Giant Platelets Not Reportable 12/25/19 03:47 Platelet Satelliting Not Reportable 12/25/19 03:47 Plt Morphology Comment Not Reportable 12/25/19 03:47 RBC Morphology Not Reportable 12/25/19 03:47 Dimorphic RBCs Not Reportable 12/25/19 03:47 Polychromasia Not Reportable 12/25/19 03:47 Hypochromasia Not Reportable 12/25/19 03:47 Poikilocytosis Not Reportable 12/25/19 03:47 Anisocytosis 1+ 12/25/19 03:47 Microcytosis Not Reportable 12/25/19 03:47 Macrocytosis Not Reportable 12/25/19 03:47 Spherocytes Not Reportable 12/25/19 03:47 Pappenheimer Bodies Not Reportable 12/25/19 03:47 Sickle Cells Not Reportable 12/25/19 03:47 Target Cells Not Reportable 12/25/19 03:47 Tear Drop Cells Not Reportable 12/25/19 03:47 Ovalocytes Not Reportable 12/25/19 03:47 Helmet Cells Not Reportable 12/25/19 03:47 [place] Bodies Not Reportable 12/25/19 03:47 G[place] Rings Not Reportable 12/25/19 03:47 [place] Cells Not Reportable 12/25/19 03:47 Bite Cells Not Reportable 12/25/19 03:47 Crenated Cell Not Reportable 12/25/19 03:47 Elliptocytes Not Reportable 12/25/19 03:47 Acanthocytes (Spur) Not Reportable 12/25/19 03:47 Rouleaux Not Reportable 12/25/19 03:47 Hemoglobin C Crystals Not Reportable 12/25/19 03:47 Schistocytes Not Reportable 12/25/19 03:47 Malaria parasites Not Reportable 12/25/19 03:47 Gregg Bodies Not Reportable 12/25/19 03:47 Hem Pathologist Commnt No 12/25/19 03:47 PT 17.0 Sec. (12.2-14.9) H 11/23/19 03:47 INR 1.36 (0.87-1.13) H 11/23/19 03:47 APTT 128.2 Sec. (24.2-36.6) H* 11/23/19 03:47 Heparin Anti-Xa Level 0.31 U.I./ml (0.3-0.7) 11/23/19 09:03 ABG pH 7.440 pH Units (7.350-7.450) 12/30/19 04:23 ABG pCO2 36.6 mm Hg 12/30/19 04:23 ABG pO2 89.9 mm Hg (80.0-90.0) 12/30/19 04:23 ABG HCO3 24.3 mmol/L (20.0-26.0) 12/30/19 04:23 ABG O2 Saturation 97.3 % (95.0-99.0) 12/30/19 04:23 ABG O2 Content 11.3 (0.0-44) 12/30/19 04:23 ABG Base Excess 0.3 mmol/L (-2.0-3.0) 12/30/19 04:23 ABG Hemoglobin 8.3 gm/dl (12.0-16.0) L 12/30/19 04:23 ABG Carboxyhemoglobin 1.4 % (0.0-5.0) 12/30/19 04:23 ABG Methemoglobin 0.5 % (0.0-1.5) 12/30/19 04:23 Oxyhemoglobin 95.5 % (95.0-99.0) 12/30/19 04:23 FiO2 30 % 12/30/19 04:23 Sodium 139 mmol/L (137-145) 12/30/19 01:06 Potassium 4.4 mmol/L (3.6-5.0) 12/30/19 01:06 Chloride 102.7 mmol/L (98-107) 12/30/19 01:06 Carbon Dioxide 22 mmol/L (22-30) 12/30/19 01:06 Anion Gap 19 mmol/L 12/30/19 01:06 BUN 70 mg/dL (7-17) H 12/30/19 01:06 Creatinine 1.1 mg/dL (0.7-1.2) 12/30/19 01:06 Estimated GFR > 60 ml/min 12/30/19 01:06 BUN/Creatinine Ratio 64 % 12/30/19 01:06 Glucose 122 mg/dL (65-100) H 12/30/19 01:06 POC Glucose 135 (70-105) H 12/30/19 05:40 Lactic Acid 1.80 mmol/L (0.7-2.0) 11/25/19 05:05 Calcium 9.8 mg/dL (8.4-10.2) 12/30/19 01:06 Ionized Calcium 4.5 mg/dL (4.8-5.6) L 11/23/19 06:32 Phosphorus 4.20 mg/dL (2.5-4.5) D 11/28/19 08:59 Magnesium 2.30 mg/dL (1.7-2.3) 11/29/19 13:41 Total Bilirubin 0.40 mg/dL (0.1-1.2) 12/13/19 07:48 AST 27 units/L (5-40) 12/13/19 07:48 ALT 26 units/L (7-56) 12/13/19 07:48 Alkaline Phosphatase 316 units/L (35-129) H 12/13/19 07:48 Ammonia 42.0 umol/L (25-60) 11/29/19 13:41 Total Creatine Kinase 139 units/L (30-135) H 11/22/19 23:27 CK-MB (CK-2) 8.3 ng/mL (0.0-4.0) H 11/22/19 23:27 CK-MB (CK-2) Rel Index 5.9 (0-4) H 11/22/19 23:27 Troponin T < 0.010 ng/mL (0.00-0.029) 11/22/19 23:27 Total Protein 6.8 g/dL (6.3-8.2) 12/13/19 07:48 Albumin 2.4 g/dL (3.9-5) L 12/13/19 07:48 Albumin/Globulin Ratio 0.5 % 12/13/19 07:48 Lipase 18 units/L (13-60) 11/23/19 00:34 Procalcitonin 1.09 ng/mL (<0.15) 11/23/19 04:53 Urine Color Yellow (Yellow) 12/16/19 Unknown Urine Turbidity Slightly-cloudy (Clear) 12/16/19 Unknown Urine pH 5.0 (5.0-7.0) 12/16/19 Unknown Ur Specific [place] 1.018 (1.003-1.030) 12/16/19 Unknown Urine Protein 30 mg/dl mg/dL (Negative) 12/16/19 Unknown Urine Glucose (UA) Neg mg/dL (Negative) 12/16/19 Unknown Urine Ketones Neg mg/dL (Negative) 12/16/19 Unknown Urine Blood Sm (Negative) 12/16/19 Unknown Urine Nitrite Neg (Negative) 12/16/19 Unknown Urine Bilirubin Neg (Negative) 12/16/19 Unknown Urine Urobilinogen < 2.0 mg/dL (<2.0) 12/16/19 Unknown Ur Leukocyte Esterase Neg (Negative) 12/16/19 Unknown Urine WBC (Auto) 6.0 /HPF (0.0-6.0) 12/16/19 Unknown Urine RBC (Auto) 9.0 /HPF (0.0-6.0) 12/16/19 Unknown U Epithel Cells (Auto) < 1.0 /HPF (0-13.0) 12/16/19 Unknown Urine Bacteria (Auto) 2+ /HPF (Negative) 11/22/19 23:17 Hyaline Casts 3 /LPF 12/16/19 Unknown Granular Casts 3 /LPF 12/16/19 Unknown Urine Mucus Few /HPF 12/16/19 Unknown Vancomycin Trough 33.8 ug/mL (5.0-20.0) H 12/21/19 08:56 Random Vancomycin 16.2 ug/mL (0-40.0) 12/24/19 04:31 Salicylates < 0.3 mg/dL (2.8-20.0) L 11/22/19 23:27 Urine Opiates Screen Presumptive negative 11/22/19 23:17 Urine Methadone Screen Presumptive negative 11/22/19 23:17 Acetaminophen < 5.0 ug/mL (10.0-30.0) L 11/22/19 23:27 Ur Barbiturates Screen Presumptive negative 11/22/19 23:17 Ur Phencyclidine Scrn Presumptive negative 11/22/19 23:17 Ur Amphetamines Screen Presumptive negative 11/22/19 23:17 U Benzodiazepines Scrn Presumptive negative 11/22/19 23:17 Urine Cocaine Screen Presumptive negative 11/22/19 23:17 U Marijuana (THC) Screen Presumptive negative 11/22/19 23:17 Drugs of Abuse Note Disclamer 11/22/19 23:17 Plasma/Serum Alcohol 0.08 % (0-0.07) H 11/22/19 23:27 Hepatitis A IgM Ab Non-reactive (NonReactive) 11/23/19 01:19 Hep Bs Antigen Non-reactive (Negative) 11/23/19 01:19 Hep B Core IgM Ab Non-reactive (NonReactive) 11/23/19 01:19 Hepatitis C Antibody Non-reactive (NonReactive) 11/23/19 01:19 Blood Type O POSITIVE 12/21/19 14:54 Antibody Screen Negative 12/21/19 14:54 Crossmatch See Detail 12/21/19 14:54 - Diagnostic Impressions Diagnostic Impressions: Echocardiogram 11/23/19 03:58 Transthoracic Echocardiogram Indication: Cardiac arrest BP: 131/89 HR: 115 Conclusions *The study quality is technically difficult. *Global left ventricular wall motion and contractility are within normal limits. *The estimated ejection fraction is 55-60%. *Abnormal left ventricular diastolic filling is observed, consistent with impaired relaxation. *There is no pericardial effusion. Findings Procedure Info: The study quality is technically difficult. The study was technically limited due to the patient's inability to lay in the left lateral decubitus position. Left Ventricle: The left ventricular chamber size is normal. There is no left ventricular hypertrophy. Global left ventricular wall motion and contractility are within normal limits. Global left ventricular systolic function is normal. The estimated ejection fraction is 55-60%. Abnormal left ventricular diastolic filling is observed, consistent with impaired relaxation. Left Atrium: The left atrial chamber size is normal. Aortic Valve: The aortic valve leaflets are mildly thickened. Mitral Valve: The mitral valve leaflets are mildly thickened. There is no evidence of mitral regurgitation. Tricuspid Valve: The tricuspid valve leaflets are normal. There is trace tricuspid regurgitation. The right ventricular systolic pressure is calculated at 33 mmHg. Pulmonic Valve: The pulmonic valve appears normal. Pericardium: The pericardium appears normal. There is no pericardial effusion. Aorta: The aorta appears normal. Venous: The inferior vena cava appears normal in size. Measurements Chambers 2D Name Value Normal Range IVSd (2D) 0.94 cm (0.6 - 1.1) LVPWd (2D) 0.81 cm (0.6 - 1.1) LVIDd (2D) 3.6 cm (3.7 - 5.6) LVIDs (2D) 2.27 cm (2 - 3.8) LV FS (2D) 36.93 % - EF Teichholz (2D) 67.76 % - Ao root diameter (2D) 3.03 cm (2 - 3.7) Volumes/Mass Name Value Normal Range LA ESV SP 4CH (A/L) 16.89 ml - LA ESV SP 4CH (MOD) 15.52 ml - Diastolic/Systolic Function Name Value Normal Range MV E-wave Vmax 0.55 m/sec - MV deceleration time 200.89 msec - MV A-wave Vmax 0.68 m/sec - MV E:A ratio 0.82 ratio - Aortic Valve Name Value Normal Range AV Vmax 1.1 m/sec - AV VTI 15.9 cm - AV peak gradient 4.86 mmHg - AV mean gradient 2.59 mmHg - LVOT diameter 2 cm - LVOT Vmax 1.03 m/sec - LVOT VTI 15.87 cm - LVOT peak gradient 4.24 mmHg - LVOT mean gradient 2.41 mmHg - SV LVOT 49.77 ml - JOSÉ MIGUEL (continuity Vmax) 2.93 cm2 - JOSÉM IGUEL (continuity VTI) 3.13 cm2 - Tricuspid Valve Name Value Normal Range TR Vmax 2.74 m/sec - TR peak gradient 303 mmHg - RAP 3 mmHg - RVSP 33 mmHg - IVC diameter 1.77 cm (1.2 - 2.3) Pulmonic Valve/Qp:Qs Name Value Normal Range PV Vmax 0.77 m/sec - PV peak gradient 2.4 mmHg - PV acceleration time 114.18 msec - Echocardiogram Limited Views 12/17/19 14:53 Transthoracic Echocardiogram Indication: R/O Vegetations BP: 144/83 HR: 133 Conclusions *Global left ventricular systolic function is mildly decreased. *The estimated ejection fraction is 45-50%. *A trivial pericardial effusion is visualized. Findings Left Ventricle: The left ventricular chamber size is normal. Global left ventricular systolic function is mildly decreased. The estimated ejection fraction is 45-50%. Left Atrium: The left atrial chamber size is normal. Right Ventricle: The right ventricular cavity size is normal. Right Atrium: The right atrial cavity size is normal. Aortic Valve: The aortic valve is not well visualized. There is no evidence of aortic regurgitation. Mitral Valve: The mitral valve leaflets are mildly thickened. There is trace of mitral regurgitation. Tricuspid Valve: The tricuspid valve leaflets are mildly thickened. There is trace tricuspid regurgitation. The right ventricular systolic pressure is calculated at 29 mmHg. Pulmonic Valve: The pulmonic valve is not well visualized. There is no evidence of pulmonic regurgitation. Pericardium: A trivial pericardial effusion is visualized. Aorta: There is no dilatation of the ascending aorta. There is no dilatation of the aortic root. Venous: The inferior vena cava appears normal in size. There is a greater than 50% respiratory change in the inferior vena cava dimension. Measurements Chambers 2D Name Value Normal Range IVSd (2D) 0.83 cm (0.6 - 1.1) LVPWd (2D) 0.98 cm (0.6 - 1.1) LVIDd (2D) 3.71 cm (3.7 - 5.6) LVIDs (2D) 2.93 cm (2 - 3.8) LV FS (2D) 21.12 % - EF Teichholz (2D) 43.71 % - Ao root diameter (2D) 3.02 cm (2 - 3.7) Volumes/Mass Name Value Normal Range LA ESV SP 4CH (A/L) 36.8 ml - LA ESV SP 2CH (A/L) 45.89 ml - LA ESV BP (A/L) 42.35 ml - LA ESV BP (A/L) index 26.63 ml/m2 - LA ESV SP 4CH (MOD) 34.42 ml - LA ESV SP 2CH (MOD) 44.21 ml - LA ESV BP (MOD) 39.82 ml - LA ESV BP (MOD) index 25.05 ml/m2 - Aortic Valve Name Value Normal Range LVOT diameter 1.63 cm - Tricuspid Valve Name Value Normal Range TR Vmax 2.56 m/sec - TR peak gradient 26 mmHg - RAP 3 mmHg - RVSP 29 mmHg - IVC diameter 1.83 cm (1.2 - 2.3) Dela Cruz/IV: Voiding Method Indwelling Catheter IV Catheter Type [Forearm] Peripheral IV IV Catheter Type [Left Forearm Peripheral IV ] IV Catheter Type [Right Peripheral IV Antecubital] IV Catheter Type [Right Hand] Peripheral IV IV Catheter Type [Right Wrist] Peripheral IV IV Catheter Type [Left Wrist] Peripheral IV IV Catheter Type [Left Peripheral IV Antecubital] IV Catheter Type [Right INT / Saline Lock Forearm] IV Catheter Type [Left Hand] Peripheral IV Active Medications - Current Medications Current Medications: Generic Name Dose Route Start Last Admin Trade Name Devanteq PRN Reason Stop Dose Admin Acetaminophen 650 mg 12/06/19 10:25 12/25/19 00:59 Tylenol FEEDTUBE 650 mg Q6H PRN Administration TEMP >/=100.3 Lipase/Protease/Amylase 1 each 11/23/19 11:[address] 10,500 Unit FEEDTUBE PRN PRN For Clogged Feeding Tube Fentanyl 50 mcg 12/05/19 02:10 12/12/19 20:04 Sublimaze IV 50 mcg Q10MIN PRN Administration ANALGESIA Glycopyrrolate 1 mg 12/24/19 14:00 12/30/19 09:13 Robinul PO 1 mg TID LUCHO Administration Hydralazine HCl 10 mg 11/24/19 00:45 12/18/19 13:25 Apresoline IV 10 mg Q6H PRN Administration SBP > 160 Hydroxyzine Pamoate 25 mg 12/06/19 10:00 12/30/19 09:13 Vistaril PO 25 mg BID LUCHO Administration Vancomycin HCl 750 mg/ Sodium 265 mls @ 166.667 mls/hr 12/24/19 22:00 12/27/19 22:08 Chloride IV 12/30/19 21:59 166.667 mls/hr Q72H LUCHO Administration Lansoprazole 30 mg 11/27/19 10:00 12/30/19 09:13 Prevacid Solutab FEEDTUBE 30 mg QDAY LUCHO Administration Levetiracetam 500 mg 11/29/19 10:00 12/30/19 09:12 Keppra PO 500 mg BID LUCHO Administration Lorazepam 2 mg 11/26/19 11:09 12/25/19 00:17 Ativan IV 2 mg Q4H PRN Administration Agitation Mirtazapine 30 mg 12/06/19 10:00 12/30/19 09:13 Remeron PO 30 mg DAILY LUCHO Administration Morphine Sulfate 2 mg 12/12/19 18:40 12/24/19 23:04 Morphine IV 2 mg Q4H PRN Administration Pain, Moderate (4-6) Ondansetron HCl 4 mg 12/10/19 07:53 12/10/19 09:51 Zofran IV 4 mg Q4H PRN Administration Nausea And Vomiting Quetiapine Fumarate 200 mg 12/23/19 10:00 12/30/19 09:13 Seroquel PO 200 mg QAM LUCHO Administration Quetiapine Fumarate 200 mg 12/25/19 22:00 12/29/19 22:07 Seroquel PO 200 mg QHS LUCHO Administration Scopolamine 1 each 12/12/19 15:00 12/27/19 17:01 Transderm-Scop TD 1 each Q3D LUCHO Administration Senna/Docusate Sodium 2 tab 12/24/19 07:00 Senokot S PO BID PRN CONSTIPATION Sertraline HCl 25 mg 12/06/19 10:00 12/30/19 09:13 Zoloft PO 25 mg QDAY LUCHO Administration Simple Syrup 15 ml 11/23/19 11:50 Simple Syrup FEEDTUBE PRN PRN Hypoglycemia Simple Syrup 30 ml 11/23/19 11:50 Simple Syrup FEEDTUBE PRN PRN Hypoglycemia Sodium Bicarbonate 325 mg 11/23/19 11:50 Sodium Bicarbonate FEEDTUBE PRN PRN For Clogged Feeding Tube Tamsulosin HCl 0.4 mg 12/14/19 13:00 12/30/19 09:13 Flomax PO 0.4 mg QDAY LUCHO Administration Nutrition/Malnutrition Assess - Dietary Evaluation Nutrition/Malnutrition Findings: Nutrition Notes Start: 11/23/19 11:29 Freq: Status: Active Protocol: Document 12/28/19 12:14 LM (Rec: 12/28/19 12:17 LM [email or web address]) Nutrition Notes Initial or Follow up Reassessment Current Diagnosis Hypertension Other Pertinent Diagnosis Cardaic arrest, ETOH dependence, UTI Current Diet Vital AF 1.2 at 50 ml/hr Labs/Tests Reviewed Pertinent Medications Reviewed Height 5 ft 6 in Weight 56 kg [place] Body Weight (kg) 59.09 BMI 19.9 Weight change and time frame wt change noted, pt with edema Subjective/Other Information TF running at goal and pt is tolerating. Percent of energy/protein needs met: 100%/100% Burn Absent Trauma Absent GI Symptoms None Current % PO Negligible Minimum of two criteria No Fluid Accumulation Mild (non-severe) #1 Nutrition Diagnosis Inadequate oral intake Diagnosis Progress(for reassessment Continues documentation) Is patient on ventilator? Yes Is Patient Ambulatory and/or Out of Bed No REE-([facility]-confined to bed) [phone] Calculation Used for Recommendations [facility] Additional Notes Protein: 66-110g (1.2-2g/kg) Fluid: 1 ml/kcal Nutrition Intervention Change Diet Order: Continue TF Nutrition Support: Vital AF 1.2 at 50 ml/hr Flush 80 ml q4h Kcal 1,440 Protein (gm) 90 Fluid (mL) 973 Goal #1 TF tolerance Goal #2 Meet at least 80% of energy and protein needs via TF Anticipated Discharge Needs: unable to determine at this time Follow-Up By: 01/02/20 Additional Comments F/U for TF tolerance
--- NOTE | 2019-12-30 11:09 | Progress Note ---
Assessment and Plan Acute cardiopulmonary arrest with ROSC Acute hypoxemic respiratory failure on MVS MRSA Bacteremia MRSA pneumonia Acute [id number] encephalopathy Metabolic acidosis/alcoholic acidosis/Lactic acidosis( resolved) Ischemic hepatitis Leucocytosis - persistent Erythrocytosis Tobacco use disorder Alcohol use Disorder -CBC, BMP in am -Trach care, airway clearance, secretion management( continue scopolamine patch and Robinul) -CXR, ABG prn -Weaning trials as tolerated -Continue contact isolation for MRSA -Continue all care as documented below. -Continue with MVS, Lung protective strategies, monitor airway pressures -VAP bundle addressed -Continue aspiration precautions, HOB>40 -Continue daily assessment for readiness for SBT -Continue Stress ulcer prophylaxis -Continue enteric nutritional support at goal rate. -Continue to monitor glycemic control, with target blood glucose 140-180 mg/dL while critically ill. -Avoid hypoglycemia - Continue to wean supplemental oxygen for target O2 sat's > 90% -Continue thiamine, multivitamin and electrolyte replacement -Continue to avoid nephrotoxins, adjust all medications for GFR and CrCL - Continue bronchodilators with pulmonary hygiene - Continue prn analgesia per CPOT score - Continue to maintain of sleep-wake cycle, avoid delirium - PT/OT/ROM exercises - Continue mobility protocol and skin assessment per protocol for pressure ulcer prevention - Continue to monitor for clinical seizures - continue other care per attending / other consultants CONDITION: FAIR PROGNOSIS: GUARDED CODE STATUS: DNAR Subjective Date of service: 12/30/19 Principal diagnosis: Ac cardiopulmonary arrest; Ac hypoxemic resp failure; Acute encephalopathy Interval history: Patient is seen today for: Acute cardiopulmonary arrest with ROSC; Acute hypoxemic respiratory failure; Acute metabolic-toxic encephalopathy; Ischemic hepatitis; Leucocytosis with lactic acidosis; Tobacco use disorder; Alcohol use Disorder; s/p tracheostomy; s/p PEG Seen and examined at bedside; 24hour events reviewed; nursing and respiratory care staff consulted; no adverse overnight events reported to me; resting peacefully in bed; not tolerating weaning trials- CPAP 08/03, lasted about 1 hour per RT; mental status changes persist; no fevers PUI?: No COVID19: Negative Objective Vital Signs - 12hr 12/29/19 12/30/19 12/30/19 23:32 00:00 00:21 Temperature 98.7 F Pulse Rate 104 H 97 H Pulse Rate [ 99 H From Monitor] Pulse Rate [ Right Dorsalis Pedis] Respiratory 20 Rate Blood Pressure 113/70 113/70 O2 Sat by Pulse 99 100 Oximetry O2 Sat by Pulse 100 Oximetry [ Assessment] 12/30/19 12/30/19 12/30/19 01:00 02:00 03:00 Temperature Pulse Rate 97 H 99 H 102 H Pulse Rate [ From Monitor] Pulse Rate [ Right Dorsalis Pedis] Respiratory 20 20 20 Rate Blood Pressure 123/80 130/87 140/95 O2 Sat by Pulse 100 100 99 Oximetry O2 Sat by Pulse Oximetry [ Assessment] 12/30/19 12/30/19 12/30/19 03:55 04:00 04:33 Temperature 98.4 F Pulse Rate 107 H 108 H Pulse Rate [ 95 H From Monitor] Pulse Rate [ 95 H Right Dorsalis Pedis] Respiratory 20 Rate Blood Pressure 142/93 142/93 O2 Sat by Pulse 100 100 Oximetry O2 Sat by Pulse Oximetry [ Assessment] 12/30/19 12/30/19 12/30/19 05:00 06:00 07:00 Temperature Pulse Rate 107 H 106 H 106 H Pulse Rate [ From Monitor] Pulse Rate [ Right Dorsalis Pedis] Respiratory 20 22 22 Rate Blood Pressure 140/90 133/91 147/99 O2 Sat by Pulse 100 96 99 Oximetry O2 Sat by Pulse Oximetry [ Assessment] 12/30/19 12/30/19 12/30/19 07:50 07:59 08:00 Temperature 98.2 F Pulse Rate 106 H 104 H Pulse Rate [ 106 H From Monitor] Pulse Rate [ Right Dorsalis Pedis] Respiratory 21 Rate Blood Pressure 147/99 147/98 O2 Sat by Pulse 99 99 Oximetry O2 Sat by Pulse Oximetry [ Assessment] 12/30/19 12/30/19 12/30/19 08:01 09:00 10:00 Temperature Pulse Rate 107 H 111 H Pulse Rate [ From Monitor] Pulse Rate [ Right Dorsalis Pedis] Respiratory 18 14 Rate Blood Pressure 155/95 148/78 O2 Sat by Pulse 100 99 Oximetry O2 Sat by Pulse 98 Oximetry [ Assessment] 12/30/19 11:00 Temperature Pulse Rate 105 H Pulse Rate [ From Monitor] Pulse Rate [ Right Dorsalis Pedis] Respiratory 17 Rate Blood Pressure 154/88 O2 Sat by Pulse 100 Oximetry O2 Sat by Pulse Oximetry [ Assessment] Constitutional: no acute distress, lethargic Eyes: non-icteric ENT: oropharynx moist, other (s/p trach, copious oral secretions) Neck: supple, no lymphadenopathy, no JVD Effort: mildly labored Ascultation: Bilateral: diminished breath sounds, rhonchi Percussion: Bilateral: not dull Cardiovascular: regular rate and rhythm (tachycardia), other (S1,S2) Gastrointestinal: normoactive bowel sounds, soft, non-tender, non-distended Integumentary: normal Extremities: no cyanosis, no edema, pulses normal, no ischemia or petechiae Neurologic: unable to assess, other (awake but not tracking voice ) Psychiatric: other (Psychiatric: Unable to assess) CBC and BMP: 12/30/19 01:06 12/30/19 01:06 ABG, PT/INR, D-dimer: ABG ABG pH 7.440 pH Units (7.350-7.450) 12/30/19 04:23 ABG pCO2 36.6 mm Hg 12/30/19 04:23 ABG pO2 89.9 mm Hg (80.0-90.0) 12/30/19 04:23 ABG O2 Saturation 97.3 % (95.0-99.0) 12/30/19 04:23 PT/INR, D-dimer PT 17.0 Sec. (12.2-14.9) H 11/23/19 03:47 INR 1.36 (0.87-1.13) H 11/23/19 03:47 Abnormal lab findings: Abnormal Labs 11/22/19 11/22/19 11/22/19 23:17 23:18 23:27 WBC 21.2 H RBC 3.59 L Hgb 9.8 L Hct MCH 27 L RDW 18.6 H Plt Count 454 H Lymph % (Auto) [place] % (Auto) [place] # Baso # Seg Neutrophils % Seg Neuts % (Manual) 86.0 H Lymphocytes % (Manual) 9.0 L Monocytes % (Manual) Seg Neutrophils # Seg Neutrophils # Man 18.2 H Lymphocytes # (Manual) Monocytes # (Manual) 1.1 H Eosinophils # (Manual) Basophils # (Manual) PT INR APTT ABG pH ABG pO2 ABG HCO3 ABG O2 Saturation ABG Base Excess ABG Hemoglobin Oxyhemoglobin Sodium Potassium Chloride Carbon Dioxide BUN Creatinine Glucose POC Glucose 53 L Lactic Acid Calcium Ionized Calcium Phosphorus Magnesium Total Bilirubin AST ALT Alkaline Phosphatase Ammonia Total Creatine Kinase CK-MB (CK-2) CK-MB (CK-2) Rel Index Total Protein Albumin Urine WBC (Auto) 40.0 H Vancomycin Trough Salicylates Acetaminophen Plasma/Serum Alcohol Crossmatch 11/22/19 11/22/19 11/22/19 23:27 23:27 23:27 WBC RBC Hgb Hct MCH RDW Plt Count Lymph % (Auto) [place] % (Auto) [place] # Baso # Seg Neutrophils % Seg Neuts % (Manual) Lymphocytes % (Manual) Monocytes % (Manual) Seg Neutrophils # Seg Neutrophils # Man Lymphocytes # (Manual) Monocytes # (Manual) Eosinophils # (Manual) Basophils # (Manual) PT INR APTT ABG pH ABG pO2 ABG HCO3 ABG O2 Saturation ABG Base Excess ABG Hemoglobin Oxyhemoglobin Sodium Potassium 2.4 L* Chloride 85.1 L Carbon Dioxide 19 L BUN Creatinine 0.5 L Glucose 261 H POC Glucose Lactic Acid Calcium Ionized Calcium Phosphorus Magnesium Total Bilirubin AST 609 H ALT 152 H Alkaline Phosphatase 160 H Ammonia 117.0 H Total Creatine Kinase 139 H CK-MB (CK-2) 8.3 H CK-MB (CK-2) Rel Index 5.9 H Total Protein Albumin 3.6 L Urine WBC (Auto) Vancomycin Trough Salicylates < 0.3 L Acetaminophen Plasma/Serum Alcohol Crossmatch 11/22/19 11/22/19 11/23/19 23:27 23:27 01:10 WBC RBC Hgb Hct MCH RDW Plt Count Lymph % (Auto) [place] % (Auto) [place] # Baso # Seg Neutrophils % Seg Neuts % (Manual) Lymphocytes % (Manual) Monocytes % (Manual) Seg Neutrophils # Seg Neutrophils # Man Lymphocytes # (Manual) Monocytes # (Manual) Eosinophils # (Manual) Basophils # (Manual) PT INR APTT ABG pH 7.273 L ABG pO2 209.7 H ABG HCO3 ABG O2 Saturation 99.2 H ABG Base Excess -3.9 L ABG Hemoglobin 10.6 L Oxyhemoglobin 93.9 L Sodium Potassium Chloride Carbon Dioxide BUN Creatinine Glucose POC Glucose Lactic Acid Calcium Ionized Calcium Phosphorus Magnesium Total Bilirubin AST ALT Alkaline Phosphatase Ammonia Total Creatine Kinase CK-MB (CK-2) CK-MB (CK-2) Rel Index Total Protein Albumin Urine WBC (Auto) Vancomycin Trough Salicylates Acetaminophen < 5.0 L Plasma/Serum Alcohol 0.08 H Crossmatch 11/23/19 11/23/19 11/23/19 01:19 01:19 03:47 WBC RBC Hgb Hct MCH RDW Plt Count Lymph % (Auto) [place] % (Auto) [place] # Baso # Seg Neutrophils % Seg Neuts % (Manual) Lymphocytes % (Manual) Monocytes % (Manual) Seg Neutrophils # Seg Neutrophils # Man Lymphocytes # (Manual) Monocytes # (Manual) Eosinophils # (Manual) Basophils # (Manual) PT 16.3 H INR 1.29 H APTT ABG pH ABG pO2 ABG HCO3 ABG O2 Saturation ABG Base Excess ABG Hemoglobin Oxyhemoglobin Sodium Potassium Chloride Carbon Dioxide BUN Creatinine Glucose POC Glucose Lactic Acid 2.10 H* 5.00 H* Calcium Ionized Calcium Phosphorus Magnesium Total Bilirubin AST ALT Alkaline Phosphatase Ammonia Total Creatine Kinase CK-MB (CK-2) CK-MB (CK-2) Rel Index Total Protein Albumin Urine WBC (Auto) Vancomycin Trough Salicylates Acetaminophen Plasma/Serum Alcohol Crossmatch 11/23/19 11/23/19 11/23/19 03:47 03:47 04:53 WBC RBC Hgb 9.4 L Hct MCH RDW Plt Count Lymph % (Auto) [place] % (Auto) [place] # Baso # Seg Neutrophils % Seg Neuts % (Manual) Lymphocytes % (Manual) Monocytes % (Manual) Seg Neutrophils # Seg Neutrophils # Man Lymphocytes # (Manual) Monocytes # (Manual) Eosinophils # (Manual) Basophils # (Manual) PT 17.0 H INR 1.36 H APTT 128.2 H* ABG pH ABG pO2 ABG HCO3 ABG O2 Saturation ABG Base Excess ABG Hemoglobin Oxyhemoglobin Sodium Potassium Chloride Carbon Dioxide 18 L BUN Creatinine 0.5 L Glucose 105 H POC Glucose Lactic Acid Calcium 8.3 L Ionized Calcium Phosphorus 2.40 L Magnesium Total Bilirubin 1.30 H AST 761 H ALT 158 H Alkaline Phosphatase 143 H Ammonia Total Creatine Kinase CK-MB (CK-2) CK-MB (CK-2) Rel Index Total Protein Albumin 2.8 L Urine WBC (Auto) Vancomycin Trough Salicylates Acetaminophen Plasma/Serum Alcohol Crossmatch 11/23/19 11/23/19 11/23/19 05:12 06:32 06:32 WBC 16.8 H RBC 3.31 L Hgb 8.9 L Hct 28.7 L MCH 27 L RDW 18.6 H Plt Count Lymph % (Auto) [place] % (Auto) [place] # Baso # Seg Neutrophils % Seg Neuts % (Manual) 94.0 H Lymphocytes % (Manual) 1.0 L Monocytes % (Manual) Seg Neutrophils # Seg Neutrophils # Man 15.8 H Lymphocytes # (Manual) 0.2 L Monocytes # (Manual) Eosinophils # (Manual) Basophils # (Manual) PT INR APTT ABG pH ABG pO2 ABG HCO3 ABG O2 Saturation ABG Base Excess -3.2 L ABG Hemoglobin 9.0 L Oxyhemoglobin 93.6 L Sodium Potassium Chloride Carbon Dioxide BUN Creatinine Glucose POC Glucose Lactic Acid Calcium Ionized Calcium 4.5 L Phosphorus Magnesium Total Bilirubin AST ALT Alkaline Phosphatase Ammonia Total Creatine Kinase CK-MB (CK-2) CK-MB (CK-2) Rel Index Total Protein Albumin Urine WBC (Auto) Vancomycin Trough Salicylates Acetaminophen Plasma/Serum Alcohol Crossmatch 11/23/19 11/24/19 11/24/19 06:32 04:35 04:35 WBC RBC Hgb Hct MCH RDW Plt Count Lymph % (Auto) [place] % (Auto) [place] # Baso # Seg Neutrophils % Seg Neuts % (Manual) Lymphocytes % (Manual) Monocytes % (Manual) Seg Neutrophils # Seg Neutrophils # Man Lymphocytes # (Manual) Monocytes # (Manual) Eosinophils # (Manual) Basophils # (Manual) PT INR APTT ABG pH ABG pO2 ABG HCO3 ABG O2 Saturation ABG Base Excess ABG Hemoglobin Oxyhemoglobin Sodium Potassium Chloride Carbon Dioxide BUN Creatinine Glucose POC Glucose Lactic Acid 3.30 H* Calcium Ionized Calcium Phosphorus Magnesium 1.40 L Total Bilirubin AST ALT Alkaline Phosphatase Ammonia 98.0 H Total Creatine Kinase CK-MB (CK-2) CK-MB (CK-2) Rel Index Total Protein Albumin Urine WBC (Auto) Vancomycin Trough Salicylates Acetaminophen Plasma/Serum Alcohol Crossmatch 11/24/19 11/25/19 11/25/19 05:22 04:34 05:05 WBC 17.3 H RBC 2.88 L Hgb 7.8 L Hct 24.6 L MCH 27 L RDW 18.5 H Plt Count Lymph % (Auto) 7.7 L [place] % (Auto) 9.7 H [place] # 1.7 H Baso # Seg Neutrophils % 82.2 H Seg Neuts % (Manual) Lymphocytes % (Manual) Monocytes % (Manual) Seg Neutrophils # 14.2 H Seg Neutrophils # Man Lymphocytes # (Manual) Monocytes # (Manual) Eosinophils # (Manual) Basophils # (Manual) PT INR APTT ABG pH 7.475 H ABG pO2 ABG HCO3 29.4 H 32.3 H ABG O2 Saturation ABG Base Excess 5.4 H 6.9 H ABG Hemoglobin 9.0 L 10.6 L Oxyhemoglobin 94.3 L Sodium Potassium Chloride Carbon Dioxide BUN Creatinine Glucose POC Glucose Lactic Acid Calcium Ionized Calcium Phosphorus Magnesium Total Bilirubin AST ALT Alkaline Phosphatase Ammonia Total Creatine Kinase CK-MB (CK-2) CK-MB (CK-2) Rel Index Total Protein Albumin Urine WBC (Auto) Vancomycin Trough Salicylates Acetaminophen Plasma/Serum Alcohol Crossmatch 11/25/19 11/25/19 11/26/19 05:05 22:46 03:31 WBC RBC Hgb Hct MCH RDW Plt Count Lymph % (Auto) [place] % (Auto) [place] # Baso # Seg Neutrophils % Seg Neuts % (Manual) Lymphocytes % (Manual) Monocytes % (Manual) Seg Neutrophils # Seg Neutrophils # Man Lymphocytes # (Manual) Monocytes # (Manual) Eosinophils # (Manual) Basophils # (Manual) PT INR APTT ABG pH 7.459 H ABG pO2 ABG HCO3 34.2 H ABG O2 Saturation ABG Base Excess 9.4 H ABG Hemoglobin 7.6 L Oxyhemoglobin 94.8 L Sodium 152 H D 147 H Potassium 2.3 L* D 2.8 L* D Chloride 107.8 H Carbon Dioxide 31 H D 33 H BUN Creatinine 0.6 L 0.6 L Glucose 148 H 177 H POC Glucose Lactic Acid Calcium Ionized Calcium Phosphorus Magnesium Total Bilirubin AST 105 H ALT 71 H Alkaline Phosphatase 155 H Ammonia Total Creatine Kinase CK-MB (CK-2) CK-MB (CK-2) Rel Index Total Protein 5.2 L D Albumin 2.9 L Urine WBC (Auto) Vancomycin Trough Salicylates Acetaminophen Plasma/Serum Alcohol Crossmatch 11/26/19 11/26/19 11/27/19 08:24 08:24 04:20 WBC 12.0 H RBC 3.00 L Hgb 8.0 L 9.3 L Hct 25.9 L 29.7 L MCH 27 L RDW 18.5 H Plt Count Lymph % (Auto) [place] % (Auto) [place] # Baso # Seg Neutrophils % Seg Neuts % (Manual) 89.0 H Lymphocytes % (Manual) 4.0 L Monocytes % (Manual) Seg Neutrophils # Seg Neutrophils # Man 10.7 H Lymphocytes # (Manual) 0.5 L Monocytes # (Manual) Eosinophils # (Manual) Basophils # (Manual) PT INR APTT ABG pH ABG pO2 ABG HCO3 ABG O2 Saturation ABG Base Excess ABG Hemoglobin Oxyhemoglobin Sodium 146 H Potassium 3.4 L D Chloride Carbon Dioxide BUN Creatinine 0.5 L Glucose 165 H POC Glucose Lactic Acid Calcium Ionized Calcium Phosphorus Magnesium Total Bilirubin AST 57 H ALT Alkaline Phosphatase 166 H Ammonia Total Creatine Kinase CK-MB (CK-2) CK-MB (CK-2) Rel Index Total Protein Albumin 2.9 L Urine WBC (Auto) Vancomycin Trough Salicylates Acetaminophen Plasma/Serum Alcohol Crossmatch 11/27/19 11/27/19 11/27/19 04:28 04:28 04:42 WBC RBC Hgb Hct MCH RDW Plt Count Lymph % (Auto) [place] % (Auto) [place] # Baso # Seg Neutrophils % Seg Neuts % (Manual) Lymphocytes % (Manual) Monocytes % (Manual) Seg Neutrophils # Seg Neutrophils # Man Lymphocytes # (Manual) Monocytes # (Manual) Eosinophils # (Manual) Basophils # (Manual) PT INR APTT ABG pH 7.470 H ABG pO2 74.0 L ABG HCO3 33.8 H ABG O2 Saturation ABG Base Excess 9.1 H ABG Hemoglobin 8.7 L Oxyhemoglobin 94.7 L Sodium 146 H Potassium 2.9 L* Chloride Carbon Dioxide BUN 25 H Creatinine Glucose 213 H POC Glucose Lactic Acid Calcium Ionized Calcium Phosphorus 1.00 L Magnesium Total Bilirubin AST ALT Alkaline Phosphatase Ammonia Total Creatine Kinase CK-MB (CK-2) CK-MB (CK-2) Rel Index Total Protein Albumin Urine WBC (Auto) Vancomycin Trough Salicylates Acetaminophen Plasma/Serum Alcohol Crossmatch 11/27/19 11/27/19 11/27/19 05:37 12:20 15:46 WBC RBC Hgb Hct MCH RDW Plt Count Lymph % (Auto) [place] % (Auto) [place] # Baso # Seg Neutrophils % Seg Neuts % (Manual) Lymphocytes % (Manual) Monocytes % (Manual) Seg Neutrophils # Seg Neutrophils # Man Lymphocytes # (Manual) Monocytes # (Manual) Eosinophils # (Manual) Basophils # (Manual) PT INR APTT ABG pH ABG pO2 ABG HCO3 ABG O2 Saturation ABG Base Excess ABG Hemoglobin Oxyhemoglobin Sodium 146 H Potassium 3.5 L D Chloride Carbon Dioxide BUN 24 H Creatinine 0.6 L Glucose 187 H POC Glucose 117 H 220 H Lactic Acid Calcium Ionized Calcium Phosphorus Magnesium Total Bilirubin AST ALT Alkaline Phosphatase Ammonia Total Creatine Kinase CK-MB (CK-2) CK-MB (CK-2) Rel Index Total Protein Albumin Urine WBC (Auto) Vancomycin Trough Salicylates Acetaminophen Plasma/Serum Alcohol Crossmatch 11/27/19 11/28/19 11/28/19 17:28 05:00 05:02 WBC RBC Hgb Hct MCH RDW Plt Count Lymph % (Auto) [place] % (Auto) [place] # Baso # Seg Neutrophils % Seg Neuts % (Manual) Lymphocytes % (Manual) Monocytes % (Manual) Seg Neutrophils # Seg Neutrophils # Man Lymphocytes # (Manual) Monocytes # (Manual) Eosinophils # (Manual) Basophils # (Manual) PT INR APTT ABG pH ABG pO2 72.4 L ABG HCO3 33.6 H ABG O2 Saturation 94.1 L ABG Base Excess 7.3 H ABG Hemoglobin Oxyhemoglobin 91.8 L Sodium 146 H Potassium 3.3 L Chloride Carbon Dioxide BUN 25 H Creatinine 0.6 L Glucose 176 H POC Glucose 198 H Lactic Acid Calcium Ionized Calcium Phosphorus Magnesium Total Bilirubin AST ALT Alkaline Phosphatase Ammonia Total Creatine Kinase CK-MB (CK-2) CK-MB (CK-2) Rel Index Total Protein Albumin Urine WBC (Auto) Vancomycin Trough Salicylates Acetaminophen Plasma/Serum Alcohol Crossmatch 11/28/19 11/28/19 11/29/19 05:02 18:55 10:43 WBC 15.2 H 19.0 H RBC 3.06 L 3.01 L Hgb 8.3 L 8.3 L Hct 27.0 L 26.4 L MCH 27 L RDW 19.0 H 19.7 H Plt Count 479 H 611 H Lymph % (Auto) [place] % (Auto) [place] # Baso # Seg Neutrophils % Seg Neuts % (Manual) 92.0 H Lymphocytes % (Manual) 2.0 L Monocytes % (Manual) Seg Neutrophils # Seg Neutrophils # Man 14.0 H Lymphocytes # (Manual) 0.3 L Monocytes # (Manual) Eosinophils # (Manual) Basophils # (Manual) PT INR APTT ABG pH ABG pO2 ABG HCO3 ABG O2 Saturation ABG Base Excess ABG Hemoglobin Oxyhemoglobin Sodium Potassium Chloride Carbon Dioxide BUN Creatinine Glucose POC Glucose 138 H Lactic Acid Calcium Ionized Calcium Phosphorus Magnesium Total Bilirubin AST ALT Alkaline Phosphatase Ammonia Total Creatine Kinase CK-MB (CK-2) CK-MB (CK-2) Rel Index Total Protein Albumin Urine WBC (Auto) Vancomycin Trough Salicylates Acetaminophen Plasma/Serum Alcohol Crossmatch 11/29/19 11/29/19 11/29/19 10:43 12:27 19:25 WBC RBC Hgb Hct MCH RDW Plt Count Lymph % (Auto) [place] % (Auto) [place] # Baso # Seg Neutrophils % Seg Neuts % (Manual) Lymphocytes % (Manual) Monocytes % (Manual) Seg Neutrophils # Seg Neutrophils # Man Lymphocytes # (Manual) Monocytes # (Manual) Eosinophils # (Manual) Basophils # (Manual) PT INR APTT ABG pH ABG pO2 ABG HCO3 ABG O2 Saturation ABG Base Excess ABG Hemoglobin Oxyhemoglobin Sodium Potassium 2.8 L* Chloride Carbon Dioxide BUN 20 H Creatinine 0.5 L Glucose 121 H POC Glucose 128 H 120 H Lactic Acid Calcium Ionized Calcium Phosphorus Magnesium Total Bilirubin AST ALT Alkaline Phosphatase Ammonia Total Creatine Kinase CK-MB (CK-2) CK-MB (CK-2) Rel Index Total Protein Albumin Urine WBC (Auto) Vancomycin Trough Salicylates Acetaminophen Plasma/Serum Alcohol Crossmatch 11/29/19 11/30/19 11/30/19 23:46 04:10 05:02 WBC RBC Hgb Hct MCH RDW Plt Count Lymph % (Auto) [place] % (Auto) [place] # Baso # Seg Neutrophils % Seg Neuts % (Manual) Lymphocytes % (Manual) Monocytes % (Manual) Seg Neutrophils # Seg Neutrophils # Man Lymphocytes # (Manual) Monocytes # (Manual) Eosinophils # (Manual) Basophils # (Manual) PT INR APTT ABG pH ABG pO2 76.3 L ABG HCO3 32.5 H ABG O2 Saturation ABG Base Excess 6.9 H ABG Hemoglobin 8.0 L Oxyhemoglobin 92.6 L Sodium Potassium Chloride Carbon Dioxide BUN Creatinine Glucose POC Glucose 116 H 128 H Lactic Acid Calcium Ionized Calcium Phosphorus Magnesium Total Bilirubin AST ALT Alkaline Phosphatase Ammonia Total Creatine Kinase CK-MB (CK-2) CK-MB (CK-2) Rel Index Total Protein Albumin Urine WBC (Auto) Vancomycin Trough Salicylates Acetaminophen Plasma/Serum Alcohol Crossmatch 11/30/19 11/30/19 11/30/19 05:25 05:25 12:59 WBC 18.4 H RBC 3.10 L Hgb 8.5 L Hct 27.5 L MCH 27 L RDW 20.9 H Plt Count 691 H Lymph % (Auto) 7.1 L [place] % (Auto) 7.7 H [place] # 1.4 H Baso # Seg Neutrophils % 83.4 H Seg Neuts % (Manual) Lymphocytes % (Manual) Monocytes % (Manual) Seg Neutrophils # 15.4 H Seg Neutrophils # Man Lymphocytes # (Manual) Monocytes # (Manual) Eosinophils # (Manual) Basophils # (Manual) PT INR APTT ABG pH ABG pO2 ABG HCO3 ABG O2 Saturation ABG Base Excess ABG Hemoglobin Oxyhemoglobin Sodium 146 H Potassium Chloride 107.2 H Carbon Dioxide BUN Creatinine 0.5 L Glucose 132 H POC Glucose 124 H Lactic Acid Calcium Ionized Calcium Phosphorus Magnesium Total Bilirubin AST 246 H ALT 274 H Alkaline Phosphatase 203 H Ammonia Total Creatine Kinase CK-MB (CK-2) CK-MB (CK-2) Rel Index Total Protein 5.4 L Albumin 2.9 L Urine WBC (Auto) Vancomycin Trough Salicylates Acetaminophen Plasma/Serum Alcohol Crossmatch 11/30/19 12/01/19 12/01/19 17:53 00:05 05:10 WBC RBC Hgb Hct MCH RDW Plt Count Lymph % (Auto) [place] % (Auto) [place] # Baso # Seg Neutrophils % Seg Neuts % (Manual) Lymphocytes % (Manual) Monocytes % (Manual) Seg Neutrophils # Seg Neutrophils # Man Lymphocytes # (Manual) Monocytes # (Manual) Eosinophils # (Manual) Basophils # (Manual) PT INR APTT ABG pH ABG pO2 ABG HCO3 ABG O2 Saturation ABG Base Excess ABG Hemoglobin Oxyhemoglobin Sodium Potassium Chloride Carbon Dioxide BUN Creatinine Glucose POC Glucose 113 H 143 H 145 H Lactic Acid Calcium Ionized Calcium Phosphorus Magnesium Total Bilirubin AST ALT Alkaline Phosphatase Ammonia Total Creatine Kinase CK-MB (CK-2) CK-MB (CK-2) Rel Index Total Protein Albumin Urine WBC (Auto) Vancomycin Trough Salicylates Acetaminophen Plasma/Serum Alcohol Crossmatch 12/01/19 12/01/19 12/01/19 05:33 08:23 08:23 WBC 22.7 H RBC 2.88 L Hgb 7.9 L Hct 25.2 L MCH 27 L RDW 21.0 H Plt Count 732 H Lymph % (Auto) [place] % (Auto) [place] # Baso # Seg Neutrophils % Seg Neuts % (Manual) 91.0 H Lymphocytes % (Manual) 3.0 L Monocytes % (Manual) Seg Neutrophils # Seg Neutrophils # Man 20.7 H Lymphocytes # (Manual) 0.7 L Monocytes # (Manual) 1.1 H Eosinophils # (Manual) Basophils # (Manual) PT INR APTT ABG pH ABG pO2 68.6 L ABG HCO3 34.1 H ABG O2 Saturation ABG Base Excess 9.0 H ABG Hemoglobin 6.5 L Oxyhemoglobin 94.7 L Sodium Potassium Chloride Carbon Dioxide BUN Creatinine 0.5 L Glucose 125 H POC Glucose Lactic Acid Calcium Ionized Calcium Phosphorus Magnesium Total Bilirubin AST ALT Alkaline Phosphatase Ammonia Total Creatine Kinase CK-MB (CK-2) CK-MB (CK-2) Rel Index Total Protein Albumin Urine WBC (Auto) Vancomycin Trough Salicylates Acetaminophen Plasma/Serum Alcohol Crossmatch 12/01/19 12/01/19 12/01/19 13:21 17:54 20:59 WBC RBC Hgb Hct MCH RDW Plt Count Lymph % (Auto) [place] % (Auto) [place] # Baso # Seg Neutrophils % Seg Neuts % (Manual) Lymphocytes % (Manual) Monocytes % (Manual) Seg Neutrophils # Seg Neutrophils # Man Lymphocytes # (Manual) Monocytes # (Manual) Eosinophils # (Manual) Basophils # (Manual) PT INR APTT ABG pH ABG pO2 78.3 L ABG HCO3 33.8 H ABG O2 Saturation 94.9 L ABG Base Excess 7.9 H ABG Hemoglobin 11.5 L Oxyhemoglobin 92.3 L Sodium Potassium Chloride Carbon Dioxide BUN Creatinine Glucose POC Glucose 111 H 115 H Lactic Acid Calcium Ionized Calcium Phosphorus Magnesium Total Bilirubin AST ALT Alkaline Phosphatase Ammonia Total Creatine Kinase CK-MB (CK-2) CK-MB (CK-2) Rel Index Total Protein Albumin Urine WBC (Auto) Vancomycin Trough Salicylates Acetaminophen Plasma/Serum Alcohol Crossmatch 12/02/19 12/03/19 12/04/19 12:55 20:00 04:26 WBC 15.2 H RBC 2.69 L Hgb 7.4 L Hct 23.6 L MCH 27 L RDW 19.9 H Plt Count 838 H Lymph % (Auto) [place] % (Auto) [place] # Baso # Seg Neutrophils % Seg Neuts % (Manual) Lymphocytes % (Manual) Monocytes % (Manual) Seg Neutrophils # Seg Neutrophils # Man Lymphocytes # (Manual) Monocytes # (Manual) Eosinophils # (Manual) Basophils # (Manual) PT INR APTT ABG pH ABG pO2 68.3 L ABG HCO3 33.5 H ABG O2 Saturation 93.5 L ABG Base Excess 8.4 H ABG Hemoglobin 7.3 L Oxyhemoglobin 90.9 L Sodium Potassium Chloride Carbon Dioxide BUN Creatinine Glucose POC Glucose 107 H Lactic Acid Calcium Ionized Calcium Phosphorus Magnesium Total Bilirubin AST ALT Alkaline Phosphatase Ammonia Total Creatine Kinase CK-MB (CK-2) CK-MB (CK-2) Rel Index Total Protein Albumin Urine WBC (Auto) Vancomycin Trough Salicylates Acetaminophen Plasma/Serum Alcohol Crossmatch 12/04/19 12/04/19 12/04/19 04:26 07:45 12:02 WBC 15.9 H RBC 2.88 L Hgb 7.9 L Hct 25.1 L MCH RDW 20.4 H Plt Count 839 H Lymph % (Auto) 11.3 L [place] % (Auto) 15.2 H [place] # 2.4 H Baso # Seg Neutrophils % 72.4 H Seg Neuts % (Manual) Lymphocytes % (Manual) Monocytes % (Manual) Seg Neutrophils # 11.5 H Seg Neutrophils # Man Lymphocytes # (Manual) Monocytes # (Manual) Eosinophils # (Manual) Basophils # (Manual) PT INR APTT ABG pH ABG pO2 ABG HCO3 ABG O2 Saturation ABG Base Excess ABG Hemoglobin Oxyhemoglobin Sodium Potassium Chloride 96.5 L Carbon Dioxide BUN 21 H Creatinine 0.6 L Glucose 107 H POC Glucose 138 H Lactic Acid Calcium Ionized Calcium Phosphorus Magnesium Total Bilirubin AST ALT Alkaline Phosphatase Ammonia Total Creatine Kinase CK-MB (CK-2) CK-MB (CK-2) Rel Index Total Protein Albumin Urine WBC (Auto) Vancomycin Trough Salicylates Acetaminophen Plasma/Serum Alcohol Crossmatch 12/04/19 12/05/19 12/05/19 18:16 11:55 18:36 WBC RBC Hgb Hct MCH RDW Plt Count Lymph % (Auto) [place] % (Auto) [place] # Baso # Seg Neutrophils % Seg Neuts % (Manual) Lymphocytes % (Manual) Monocytes % (Manual) Seg Neutrophils # Seg Neutrophils # Man Lymphocytes # (Manual) Monocytes # (Manual) Eosinophils # (Manual) Basophils # (Manual) PT INR APTT ABG pH ABG pO2 ABG HCO3 ABG O2 Saturation ABG Base Excess ABG Hemoglobin Oxyhemoglobin Sodium Potassium Chloride Carbon Dioxide BUN Creatinine Glucose POC Glucose 135 H 125 H 135 H Lactic Acid Calcium Ionized Calcium Phosphorus Magnesium Total Bilirubin AST ALT Alkaline Phosphatase Ammonia Total Creatine Kinase CK-MB (CK-2) CK-MB (CK-2) Rel Index Total Protein Albumin Urine WBC (Auto) Vancomycin Trough Salicylates Acetaminophen Plasma/Serum Alcohol Crossmatch 12/05/19 12/06/19 12/06/19 23:30 04:14 05:43 WBC RBC Hgb Hct MCH RDW Plt Count Lymph % (Auto) [place] % (Auto) [place] # Baso # Seg Neutrophils % Seg Neuts % (Manual) Lymphocytes % (Manual) Monocytes % (Manual) Seg Neutrophils # Seg Neutrophils # Man Lymphocytes # (Manual) Monocytes # (Manual) Eosinophils # (Manual) Basophils # (Manual) PT INR APTT ABG pH ABG pO2 ABG HCO3 ABG O2 Saturation ABG Base Excess ABG Hemoglobin Oxyhemoglobin Sodium Potassium 5.6 H Chloride 95.0 L Carbon Dioxide BUN 48 H Creatinine 1.3 H D Glucose POC Glucose 126 H 121 H Lactic Acid Calcium Ionized Calcium Phosphorus Magnesium Total Bilirubin AST 89 H ALT 98 H Alkaline Phosphatase 476 H Ammonia Total Creatine Kinase CK-MB (CK-2) CK-MB (CK-2) Rel Index Total Protein Albumin 2.8 L Urine WBC (Auto) Vancomycin Trough Salicylates Acetaminophen Plasma/Serum Alcohol Crossmatch 12/06/19 12/06/19 12/07/19 10:39 14:34 00:19 WBC 17.3 H RBC 2.60 L Hgb 7.1 L Hct 22.7 L MCH 27 L RDW 20.1 H Plt Count 832 H Lymph % (Auto) [place] % (Auto) [place] # Baso # Seg Neutrophils % Seg Neuts % (Manual) Lymphocytes % (Manual) Monocytes % (Manual) Seg Neutrophils # Seg Neutrophils # Man Lymphocytes # (Manual) Monocytes # (Manual) Eosinophils # (Manual) Basophils # (Manual) PT INR APTT ABG pH ABG pO2 ABG HCO3 ABG O2 Saturation ABG Base Excess ABG Hemoglobin Oxyhemoglobin Sodium Potassium Chloride Carbon Dioxide BUN Creatinine Glucose POC Glucose 128 H 136 H Lactic Acid Calcium Ionized Calcium Phosphorus Magnesium Total Bilirubin AST ALT Alkaline Phosphatase Ammonia Total Creatine Kinase CK-MB (CK-2) CK-MB (CK-2) Rel Index Total Protein Albumin Urine WBC (Auto) Vancomycin Trough Salicylates Acetaminophen Plasma/Serum Alcohol Crossmatch 12/07/19 12/07/19 12/07/19 03:44 03:44 05:53 WBC 16.2 H RBC 2.56 L Hgb 7.1 L Hct 22.3 L MCH RDW 19.4 H Plt Count 782 H Lymph % (Auto) [place] % (Auto) [place] # Baso # Seg Neutrophils % Seg Neuts % (Manual) Lymphocytes % (Manual) Monocytes % (Manual) Seg Neutrophils # Seg Neutrophils # Man Lymphocytes # (Manual) Monocytes # (Manual) Eosinophils # (Manual) Basophils # (Manual) PT INR APTT ABG pH ABG pO2 ABG HCO3 ABG O2 Saturation ABG Base Excess ABG Hemoglobin Oxyhemoglobin Sodium Potassium Chloride 95.6 L Carbon Dioxide BUN 56 H Creatinine 1.4 H Glucose 120 H POC Glucose 128 H Lactic Acid Calcium 10.3 H Ionized Calcium Phosphorus Magnesium Total Bilirubin AST ALT Alkaline Phosphatase Ammonia Total Creatine Kinase CK-MB (CK-2) CK-MB (CK-2) Rel Index Total Protein Albumin Urine WBC (Auto) Vancomycin Trough Salicylates Acetaminophen Plasma/Serum Alcohol Crossmatch 12/07/19 12/07/19 12/08/19 12:54 23:47 00:20 WBC RBC Hgb Hct MCH RDW Plt Count Lymph % (Auto) [place] % (Auto) [place] # Baso # Seg Neutrophils % Seg Neuts % (Manual) Lymphocytes % (Manual) Monocytes % (Manual) Seg Neutrophils # Seg Neutrophils # Man Lymphocytes # (Manual) Monocytes # (Manual) Eosinophils # (Manual) Basophils # (Manual) PT INR APTT ABG pH ABG pO2 ABG HCO3 ABG O2 Saturation ABG Base Excess ABG Hemoglobin Oxyhemoglobin Sodium Potassium Chloride Carbon Dioxide BUN Creatinine Glucose POC Glucose 128 H 130 H 124 H Lactic Acid Calcium Ionized Calcium Phosphorus Magnesium Total Bilirubin AST ALT Alkaline Phosphatase Ammonia Total Creatine Kinase CK-MB (CK-2) CK-MB (CK-2) Rel Index Total Protein Albumin Urine WBC (Auto) Vancomycin Trough Salicylates Acetaminophen Plasma/Serum Alcohol Crossmatch 12/08/19 12/08/19 12/08/19 06:38 12:04 18:26 WBC RBC Hgb Hct MCH RDW Plt Count Lymph % (Auto) [place] % (Auto) [place] # Baso # Seg Neutrophils % Seg Neuts % (Manual) Lymphocytes % (Manual) Monocytes % (Manual) Seg Neutrophils # Seg Neutrophils # Man Lymphocytes # (Manual) Monocytes # (Manual) Eosinophils # (Manual) Basophils # (Manual) PT INR APTT ABG pH ABG pO2 ABG HCO3 ABG O2 Saturation ABG Base Excess ABG Hemoglobin Oxyhemoglobin Sodium Potassium Chloride Carbon Dioxide BUN Creatinine Glucose POC Glucose 137 H 129 H 150 H Lactic Acid Calcium Ionized Calcium Phosphorus Magnesium Total Bilirubin AST ALT Alkaline Phosphatase Ammonia Total Creatine Kinase CK-MB (CK-2) CK-MB (CK-2) Rel Index Total Protein Albumin Urine WBC (Auto) Vancomycin Trough Salicylates Acetaminophen Plasma/Serum Alcohol Crossmatch 12/09/19 12/09/19 12/09/19 00:56 05:34 06:13 WBC RBC Hgb Hct MCH RDW Plt Count Lymph % (Auto) [place] % (Auto) [place] # Baso # Seg Neutrophils % Seg Neuts % (Manual) Lymphocytes % (Manual) Monocytes % (Manual) Seg Neutrophils # Seg Neutrophils # Man Lymphocytes # (Manual) Monocytes # (Manual) Eosinophils # (Manual) Basophils # (Manual) PT INR APTT ABG pH ABG pO2 ABG HCO3 ABG O2 Saturation ABG Base Excess ABG Hemoglobin Oxyhemoglobin Sodium 146 H Potassium Chloride Carbon Dioxide BUN 66 H Creatinine 1.9 H Glucose 116 H POC Glucose 130 H 130 H Lactic Acid Calcium Ionized Calcium Phosphorus Magnesium Total Bilirubin AST ALT Alkaline Phosphatase Ammonia Total Creatine Kinase CK-MB (CK-2) CK-MB (CK-2) Rel Index Total Protein Albumin Urine WBC (Auto) Vancomycin Trough Salicylates Acetaminophen Plasma/Serum Alcohol Crossmatch 12/09/19 12/09/19 12/10/19 11:52 17:50 00:14 WBC RBC Hgb Hct MCH RDW Plt Count Lymph % (Auto) [place] % (Auto) [place] # Baso # Seg Neutrophils % Seg Neuts % (Manual) Lymphocytes % (Manual) Monocytes % (Manual) Seg Neutrophils # Seg Neutrophils # Man Lymphocytes # (Manual) Monocytes # (Manual) Eosinophils # (Manual) Basophils # (Manual) PT INR APTT ABG pH ABG pO2 ABG HCO3 ABG O2 Saturation ABG Base Excess ABG Hemoglobin Oxyhemoglobin Sodium Potassium Chloride Carbon Dioxide BUN Creatinine Glucose POC Glucose 135 H 120 H 116 H Lactic Acid Calcium Ionized Calcium Phosphorus Magnesium Total Bilirubin AST ALT Alkaline Phosphatase Ammonia Total Creatine Kinase CK-MB (CK-2) CK-MB (CK-2) Rel Index Total Protein Albumin Urine WBC (Auto) Vancomycin Trough Salicylates Acetaminophen Plasma/Serum Alcohol Crossmatch 12/10/19 12/10/19 12/10/19 05:38 11:38 17:34 WBC RBC Hgb Hct MCH RDW Plt Count Lymph % (Auto) [place] % (Auto) [place] # Baso # Seg Neutrophils % Seg Neuts % (Manual) Lymphocytes % (Manual) Monocytes % (Manual) Seg Neutrophils # Seg Neutrophils # Man Lymphocytes # (Manual) Monocytes # (Manual) Eosinophils # (Manual) Basophils # (Manual) PT INR APTT ABG pH ABG pO2 ABG HCO3 ABG O2 Saturation ABG Base Excess ABG Hemoglobin Oxyhemoglobin Sodium Potassium Chloride Carbon Dioxide BUN Creatinine Glucose POC Glucose 115 H 112 H 130 H Lactic Acid Calcium Ionized Calcium Phosphorus Magnesium Total Bilirubin AST ALT Alkaline Phosphatase Ammonia Total Creatine Kinase CK-MB (CK-2) CK-MB (CK-2) Rel Index Total Protein Albumin Urine WBC (Auto) Vancomycin Trough Salicylates Acetaminophen Plasma/Serum Alcohol Crossmatch 12/11/19 12/11/19 12/11/19 00:20 05:31 12:22 WBC RBC Hgb Hct MCH RDW Plt Count Lymph % (Auto) [place] % (Auto) [place] # Baso # Seg Neutrophils % Seg Neuts % (Manual) Lymphocytes % (Manual) Monocytes % (Manual) Seg Neutrophils # Seg Neutrophils # Man Lymphocytes # (Manual) Monocytes # (Manual) Eosinophils # (Manual) Basophils # (Manual) PT INR APTT ABG pH ABG pO2 ABG HCO3 ABG O2 Saturation ABG Base Excess ABG Hemoglobin Oxyhemoglobin Sodium Potassium Chloride Carbon Dioxide BUN Creatinine Glucose POC Glucose 124 H 132 H 128 H Lactic Acid Calcium Ionized Calcium Phosphorus Magnesium Total Bilirubin AST ALT Alkaline Phosphatase Ammonia Total Creatine Kinase CK-MB (CK-2) CK-MB (CK-2) Rel Index Total Protein Albumin Urine WBC (Auto) Vancomycin Trough Salicylates Acetaminophen Plasma/Serum Alcohol Crossmatch 12/11/19 12/11/19 12/12/19 18:04 23:42 03:51 WBC RBC Hgb Hct MCH RDW Plt Count Lymph % (Auto) [place] % (Auto) [place] # Baso # Seg Neutrophils % Seg Neuts % (Manual) Lymphocytes % (Manual) Monocytes % (Manual) Seg Neutrophils # Seg Neutrophils # Man Lymphocytes # (Manual) Monocytes # (Manual) Eosinophils # (Manual) Basophils # (Manual) PT INR APTT ABG pH ABG pO2 ABG HCO3 ABG O2 Saturation ABG Base Excess ABG Hemoglobin Oxyhemoglobin Sodium 149 H Potassium Chloride Carbon Dioxide 20 L D BUN 77 H Creatinine 2.8 H Glucose POC Glucose 133 H 154 H Lactic Acid Calcium Ionized Calcium Phosphorus Magnesium Total Bilirubin AST ALT Alkaline Phosphatase Ammonia Total Creatine Kinase CK-MB (CK-2) CK-MB (CK-2) Rel Index Total Protein Albumin Urine WBC (Auto) Vancomycin Trough Salicylates Acetaminophen Plasma/Serum Alcohol Crossmatch 12/12/19 12/12/19 12/12/19 05:18 05:26 10:30 WBC 18.0 H RBC 2.51 L Hgb 6.8 L Hct 22.0 L MCH 27 L RDW 19.9 H Plt Count 582 H Lymph % (Auto) [place] % (Auto) [place] # Baso # Seg Neutrophils % Seg Neuts % (Manual) Lymphocytes % (Manual) Monocytes % (Manual) Seg Neutrophils # Seg Neutrophils # Man Lymphocytes # (Manual) Monocytes # (Manual) Eosinophils # (Manual) Basophils # (Manual) PT INR APTT ABG pH ABG pO2 ABG HCO3 ABG O2 Saturation ABG Base Excess ABG Hemoglobin Oxyhemoglobin Sodium Potassium Chloride Carbon Dioxide BUN Creatinine Glucose POC Glucose 135 H Lactic Acid Calcium Ionized Calcium Phosphorus Magnesium Total Bilirubin AST ALT Alkaline Phosphatase Ammonia Total Creatine Kinase CK-MB (CK-2) CK-MB (CK-2) Rel Index Total Protein Albumin Urine WBC (Auto) Vancomycin Trough Salicylates Acetaminophen Plasma/Serum Alcohol Crossmatch See Detail 12/12/19 12/12/19 12/12/19 11:44 18:10 23:21 WBC RBC Hgb Hct MCH RDW Plt Count Lymph % (Auto) [place] % (Auto) [place] # Baso # Seg Neutrophils % Seg Neuts % (Manual) Lymphocytes % (Manual) Monocytes % (Manual) Seg Neutrophils # Seg Neutrophils # Man Lymphocytes # (Manual) Monocytes # (Manual) Eosinophils # (Manual) Basophils # (Manual) PT INR APTT ABG pH ABG pO2 ABG HCO3 ABG O2 Saturation ABG Base Excess ABG Hemoglobin Oxyhemoglobin Sodium Potassium Chloride Carbon Dioxide BUN Creatinine Glucose POC Glucose 108 H 107 H 126 H Lactic Acid Calcium Ionized Calcium Phosphorus Magnesium Total Bilirubin AST ALT Alkaline Phosphatase Ammonia Total Creatine Kinase CK-MB (CK-2) CK-MB (CK-2) Rel Index Total Protein Albumin Urine WBC (Auto) Vancomycin Trough Salicylates Acetaminophen Plasma/Serum Alcohol Crossmatch 12/13/19 12/13/19 12/13/19 05:41 07:48 07:48 WBC 38.3 H RBC 2.37 L Hgb 6.3 L Hct 20.9 L MCH 27 L RDW 20.2 H Plt Count 546 H Lymph % (Auto) [place] % (Auto) [place] # Baso # Seg Neutrophils % Seg Neuts % (Manual) 93.0 H Lymphocytes % (Manual) 1.0 L Monocytes % (Manual) Seg Neutrophils # Seg Neutrophils # Man 35.6 H Lymphocytes # (Manual) 0.4 L Monocytes # (Manual) Eosinophils # (Manual) Basophils # (Manual) 0.4 H PT INR APTT ABG pH ABG pO2 ABG HCO3 ABG O2 Saturation ABG Base Excess ABG Hemoglobin Oxyhemoglobin Sodium 152 H Potassium 3.1 L D Chloride 111.9 H Carbon Dioxide 21 L BUN 53 H Creatinine 1.9 H Glucose 141 H POC Glucose 128 H Lactic Acid Calcium Ionized Calcium Phosphorus Magnesium Total Bilirubin AST ALT Alkaline Phosphatase 316 H Ammonia Total Creatine Kinase CK-MB (CK-2) CK-MB (CK-2) Rel Index Total Protein Albumin 2.4 L Urine WBC (Auto) Vancomycin Trough Salicylates Acetaminophen Plasma/Serum Alcohol Crossmatch 12/13/19 12/13/19 12/14/19 18:17 23:19 05:36 WBC RBC Hgb Hct MCH RDW Plt Count Lymph % (Auto) [place] % (Auto) [place] # Baso # Seg Neutrophils % Seg Neuts % (Manual) Lymphocytes % (Manual) Monocytes % (Manual) Seg Neutrophils # Seg Neutrophils # Man Lymphocytes # (Manual) Monocytes # (Manual) Eosinophils # (Manual) Basophils # (Manual) PT INR APTT ABG pH ABG pO2 ABG HCO3 ABG O2 Saturation ABG Base Excess ABG Hemoglobin Oxyhemoglobin Sodium Potassium Chloride Carbon Dioxide BUN Creatinine Glucose POC Glucose 141 H 158 H 182 H Lactic Acid Calcium Ionized Calcium Phosphorus Magnesium Total Bilirubin AST ALT Alkaline Phosphatase Ammonia Total Creatine Kinase CK-MB (CK-2) CK-MB (CK-2) Rel Index Total Protein Albumin Urine WBC (Auto) Vancomycin Trough Salicylates Acetaminophen Plasma/Serum Alcohol Crossmatch 12/14/19 12/14/19 12/14/19 08:48 08:48 10:31 WBC 33.3 H RBC 2.70 L Hgb 7.9 L 8.0 L Hct 25.3 L 24.0 L MCH RDW 19.2 H Plt Count 476 H Lymph % (Auto) [place] % (Auto) [place] # Baso # Seg Neutrophils % Seg Neuts % (Manual) Lymphocytes % (Manual) Monocytes % (Manual) Seg Neutrophils # Seg Neutrophils # Man Lymphocytes # (Manual) Monocytes # (Manual) Eosinophils # (Manual) Basophils # (Manual) PT INR APTT ABG pH ABG pO2 ABG HCO3 ABG O2 Saturation ABG Base Excess ABG Hemoglobin Oxyhemoglobin Sodium 153 H Potassium 2.5 L* Chloride 114.9 H Carbon Dioxide 20 L BUN 38 H Creatinine 1.4 H Glucose 177 H POC Glucose Lactic Acid Calcium Ionized Calcium Phosphorus Magnesium Total Bilirubin AST ALT Alkaline Phosphatase Ammonia Total Creatine Kinase CK-MB (CK-2) CK-MB (CK-2) Rel Index Total Protein Albumin Urine WBC (Auto) Vancomycin Trough Salicylates Acetaminophen Plasma/Serum Alcohol Crossmatch 12/14/19 12/14/19 12/14/19 12:57 16:15 17:50 WBC RBC Hgb Hct MCH RDW Plt Count Lymph % (Auto) [place] % (Auto) [place] # Baso # Seg Neutrophils % Seg Neuts % (Manual) Lymphocytes % (Manual) Monocytes % (Manual) Seg Neutrophils # Seg Neutrophils # Man Lymphocytes # (Manual) Monocytes # (Manual) Eosinophils # (Manual) Basophils # (Manual) PT INR APTT ABG pH ABG pO2 73.6 L ABG HCO3 ABG O2 Saturation ABG Base Excess ABG Hemoglobin 7.6 L Oxyhemoglobin 94.0 L Sodium Potassium Chloride Carbon Dioxide BUN Creatinine Glucose POC Glucose 174 H 150 H Lactic Acid Calcium Ionized Calcium Phosphorus Magnesium Total Bilirubin AST ALT Alkaline Phosphatase Ammonia Total Creatine Kinase CK-MB (CK-2) CK-MB (CK-2) Rel Index Total Protein Albumin Urine WBC (Auto) Vancomycin Trough Salicylates Acetaminophen Plasma/Serum Alcohol Crossmatch 12/15/19 12/15/19 12/15/19 00:28 05:27 07:23 WBC 30.0 H RBC 3.11 L Hgb 8.6 L Hct 27.7 L MCH RDW 20.0 H Plt Count 473 H Lymph % (Auto) [place] % (Auto) [place] # Baso # Seg Neutrophils % Seg Neuts % (Manual) Lymphocytes % (Manual) Monocytes % (Manual) Seg Neutrophils # Seg Neutrophils # Man Lymphocytes # (Manual) Monocytes # (Manual) Eosinophils # (Manual) Basophils # (Manual) PT INR APTT ABG pH ABG pO2 ABG HCO3 ABG O2 Saturation ABG Base Excess ABG Hemoglobin Oxyhemoglobin Sodium Potassium Chloride Carbon Dioxide BUN Creatinine Glucose POC Glucose 167 H 148 H Lactic Acid Calcium Ionized Calcium Phosphorus Magnesium Total Bilirubin AST ALT Alkaline Phosphatase Ammonia Total Creatine Kinase CK-MB (CK-2) CK-MB (CK-2) Rel Index Total Protein Albumin Urine WBC (Auto) Vancomycin Trough Salicylates Acetaminophen Plasma/Serum Alcohol Crossmatch 12/15/19 12/15/19 12/15/19 07:23 12:21 17:41 WBC RBC Hgb Hct MCH RDW Plt Count Lymph % (Auto) [place] % (Auto) [place] # Baso # Seg Neutrophils % Seg Neuts % (Manual) Lymphocytes % (Manual) Monocytes % (Manual) Seg Neutrophils # Seg Neutrophils # Man Lymphocytes # (Manual) Monocytes # (Manual) Eosinophils # (Manual) Basophils # (Manual) PT INR APTT ABG pH ABG pO2 ABG HCO3 ABG O2 Saturation ABG Base Excess ABG Hemoglobin Oxyhemoglobin Sodium 147 H Potassium 3.5 L D Chloride 111.2 H Carbon Dioxide 19 L BUN 29 H Creatinine Glucose 126 H POC Glucose 154 H 144 H Lactic Acid Calcium Ionized Calcium Phosphorus Magnesium Total Bilirubin AST ALT Alkaline Phosphatase Ammonia Total Creatine Kinase CK-MB (CK-2) CK-MB (CK-2) Rel Index Total Protein Albumin Urine WBC (Auto) Vancomycin Trough Salicylates Acetaminophen Plasma/Serum Alcohol Crossmatch 12/16/19 12/16/19 12/16/19 00:22 05:30 05:44 WBC 30.8 H RBC 2.58 L Hgb 7.1 L Hct 22.7 L MCH RDW 19.6 H Plt Count 451 H Lymph % (Auto) [place] % (Auto) [place] # Baso # Seg Neutrophils % Seg Neuts % (Manual) Lymphocytes % (Manual) Monocytes % (Manual) Seg Neutrophils # Seg Neutrophils # Man Lymphocytes # (Manual) Monocytes # (Manual) Eosinophils # (Manual) Basophils # (Manual) PT INR APTT ABG pH ABG pO2 ABG HCO3 ABG O2 Saturation ABG Base Excess ABG Hemoglobin Oxyhemoglobin Sodium Potassium Chloride Carbon Dioxide BUN Creatinine Glucose POC Glucose 139 H 126 H Lactic Acid Calcium Ionized Calcium Phosphorus Magnesium Total Bilirubin AST ALT Alkaline Phosphatase Ammonia Total Creatine Kinase CK-MB (CK-2) CK-MB (CK-2) Rel Index Total Protein Albumin Urine WBC (Auto) Vancomycin Trough Salicylates Acetaminophen Plasma/Serum Alcohol Crossmatch 12/16/19 12/16/19 12/16/19 05:44 11:48 17:37 WBC RBC Hgb Hct MCH RDW Plt Count Lymph % (Auto) [place] % (Auto) [place] # Baso # Seg Neutrophils % Seg Neuts % (Manual) Lymphocytes % (Manual) Monocytes % (Manual) Seg Neutrophils # Seg Neutrophils # Man Lymphocytes # (Manual) Monocytes # (Manual) Eosinophils # (Manual) Basophils # (Manual) PT INR APTT ABG pH ABG pO2 ABG HCO3 ABG O2 Saturation ABG Base Excess ABG Hemoglobin Oxyhemoglobin Sodium Potassium 3.4 L Chloride 109.2 H Carbon Dioxide 19 L BUN 27 H Creatinine Glucose 124 H POC Glucose 125 H 148 H Lactic Acid Calcium Ionized Calcium Phosphorus Magnesium Total Bilirubin AST ALT Alkaline Phosphatase Ammonia Total Creatine Kinase CK-MB (CK-2) CK-MB (CK-2) Rel Index Total Protein Albumin Urine WBC (Auto) Vancomycin Trough Salicylates Acetaminophen Plasma/Serum Alcohol Crossmatch 12/16/19 12/17/19 12/17/19 23:43 05:28 12:47 WBC RBC Hgb Hct MCH RDW Plt Count Lymph % (Auto) [place] % (Auto) [place] # Baso # Seg Neutrophils % Seg Neuts % (Manual) Lymphocytes % (Manual) Monocytes % (Manual) Seg Neutrophils # Seg Neutrophils # Man Lymphocytes # (Manual) Monocytes # (Manual) Eosinophils # (Manual) Basophils # (Manual) PT INR APTT ABG pH ABG pO2 ABG HCO3 ABG O2 Saturation ABG Base Excess ABG Hemoglobin Oxyhemoglobin Sodium Potassium Chloride Carbon Dioxide BUN Creatinine Glucose POC Glucose 142 H 140 H 125 H Lactic Acid Calcium Ionized Calcium Phosphorus Magnesium Total Bilirubin AST ALT Alkaline Phosphatase Ammonia Total Creatine Kinase CK-MB (CK-2) CK-MB (CK-2) Rel Index Total Protein Albumin Urine WBC (Auto) Vancomycin Trough Salicylates Acetaminophen Plasma/Serum Alcohol Crossmatch 12/17/19 12/17/19 12/17/19 17:05 18:00 Unknown WBC RBC Hgb Hct MCH RDW Plt Count Lymph % (Auto) [place] % (Auto) [place] # Baso # Seg Neutrophils % Seg Neuts % (Manual) Lymphocytes % (Manual) Monocytes % (Manual) Seg Neutrophils # Seg Neutrophils # Man Lymphocytes # (Manual) Monocytes # (Manual) Eosinophils # (Manual) Basophils # (Manual) PT INR APTT ABG pH ABG pO2 68.1 L ABG HCO3 ABG O2 Saturation 93.7 L ABG Base Excess ABG Hemoglobin 5.0 L Oxyhemoglobin 91.7 L Sodium Potassium Chloride Carbon Dioxide BUN Creatinine Glucose POC Glucose 140 H Lactic Acid Calcium Ionized Calcium Phosphorus Magnesium Total Bilirubin AST ALT Alkaline Phosphatase Ammonia Total Creatine Kinase CK-MB (CK-2) CK-MB (CK-2) Rel Index Total Protein Albumin Urine WBC (Auto) Vancomycin Trough Salicylates Acetaminophen Plasma/Serum Alcohol Crossmatch 12/18/19 12/18/19 12/18/19 00:16 04:53 04:53 WBC 28.6 H RBC 2.27 L Hgb 6.3 L Hct 19.5 L* MCH RDW 20.0 H Plt Count 497 H Lymph % (Auto) [place] % (Auto) [place] # Baso # Seg Neutrophils % Seg Neuts % (Manual) Lymphocytes % (Manual) Monocytes % (Manual) Seg Neutrophils # Seg Neutrophils # Man Lymphocytes # (Manual) Monocytes # (Manual) Eosinophils # (Manual) Basophils # (Manual) PT INR APTT ABG pH ABG pO2 ABG HCO3 ABG O2 Saturation ABG Base Excess ABG Hemoglobin Oxyhemoglobin Sodium Potassium Chloride 107.9 H Carbon Dioxide 20 L BUN 27 H Creatinine 0.6 L Glucose 116 H POC Glucose 123 H Lactic Acid Calcium Ionized Calcium Phosphorus Magnesium Total Bilirubin AST ALT Alkaline Phosphatase Ammonia Total Creatine Kinase CK-MB (CK-2) CK-MB (CK-2) Rel Index Total Protein Albumin Urine WBC (Auto) Vancomycin Trough Salicylates Acetaminophen Plasma/Serum Alcohol Crossmatch 12/18/19 12/18/19 12/18/19 06:38 11:22 12:08 WBC RBC Hgb Hct MCH RDW Plt Count Lymph % (Auto) [place] % (Auto) [place] # Baso # Seg Neutrophils % Seg Neuts % (Manual) Lymphocytes % (Manual) Monocytes % (Manual) Seg Neutrophils # Seg Neutrophils # Man Lymphocytes # (Manual) Monocytes # (Manual) Eosinophils # (Manual) Basophils # (Manual) PT INR APTT ABG pH ABG pO2 ABG HCO3 ABG O2 Saturation ABG Base Excess ABG Hemoglobin Oxyhemoglobin Sodium Potassium Chloride Carbon Dioxide BUN Creatinine Glucose POC Glucose 120 H 127 H Lactic Acid Calcium Ionized Calcium Phosphorus Magnesium Total Bilirubin AST ALT Alkaline Phosphatase Ammonia Total Creatine Kinase CK-MB (CK-2) CK-MB (CK-2) Rel Index Total Protein Albumin Urine WBC (Auto) Vancomycin Trough Salicylates Acetaminophen Plasma/Serum Alcohol Crossmatch See Detail 12/18/19 12/18/19 12/18/19 14:05 17:49 23:53 WBC RBC Hgb Hct MCH RDW Plt Count Lymph % (Auto) [place] % (Auto) [place] # Baso # Seg Neutrophils % Seg Neuts % (Manual) Lymphocytes % (Manual) Monocytes % (Manual) Seg Neutrophils # Seg Neutrophils # Man Lymphocytes # (Manual) Monocytes # (Manual) Eosinophils # (Manual) Basophils # (Manual) PT INR APTT ABG pH 7.267 L ABG pO2 69.8 L ABG HCO3 ABG O2 Saturation 88.4 L ABG Base Excess ABG Hemoglobin 7.1 L Oxyhemoglobin 86.4 L Sodium Potassium Chloride Carbon Dioxide BUN Creatinine Glucose POC Glucose 157 H 128 H Lactic Acid Calcium Ionized Calcium Phosphorus Magnesium Total Bilirubin AST ALT Alkaline Phosphatase Ammonia Total Creatine Kinase CK-MB (CK-2) CK-MB (CK-2) Rel Index Total Protein Albumin Urine WBC (Auto) Vancomycin Trough Salicylates Acetaminophen Plasma/Serum Alcohol Crossmatch 12/19/19 12/19/19 12/19/19 03:37 03:37 05:25 WBC 31.3 H RBC 2.60 L Hgb 7.6 L Hct 23.0 L MCH RDW 19.4 H Plt Count 530 H Lymph % (Auto) [place] % (Auto) [place] # Baso # Seg Neutrophils % Seg Neuts % (Manual) Lymphocytes % (Manual) Monocytes % (Manual) Seg Neutrophils # Seg Neutrophils # Man Lymphocytes # (Manual) Monocytes # (Manual) Eosinophils # (Manual) Basophils # (Manual) PT INR APTT ABG pH ABG pO2 ABG HCO3 ABG O2 Saturation ABG Base Excess ABG Hemoglobin Oxyhemoglobin Sodium Potassium Chloride Carbon Dioxide 18 L BUN 36 H Creatinine Glucose 111 H POC Glucose 123 H Lactic Acid Calcium Ionized Calcium Phosphorus Magnesium Total Bilirubin AST ALT Alkaline Phosphatase Ammonia Total Creatine Kinase CK-MB (CK-2) CK-MB (CK-2) Rel Index Total Protein Albumin Urine WBC (Auto) Vancomycin Trough Salicylates Acetaminophen Plasma/Serum Alcohol Crossmatch 12/19/19 12/19/19 12/20/19 12:59 18:33 00:00 WBC RBC Hgb Hct MCH RDW Plt Count Lymph % (Auto) [place] % (Auto) [place] # Baso # Seg Neutrophils % Seg Neuts % (Manual) Lymphocytes % (Manual) Monocytes % (Manual) Seg Neutrophils # Seg Neutrophils # Man Lymphocytes # (Manual) Monocytes # (Manual) Eosinophils # (Manual) Basophils # (Manual) PT INR APTT ABG pH ABG pO2 ABG HCO3 ABG O2 Saturation ABG Base Excess ABG Hemoglobin Oxyhemoglobin Sodium Potassium Chloride Carbon Dioxide BUN Creatinine Glucose POC Glucose 130 H 118 H 135 H Lactic Acid Calcium Ionized Calcium Phosphorus Magnesium Total Bilirubin AST ALT Alkaline Phosphatase Ammonia Total Creatine Kinase CK-MB (CK-2) CK-MB (CK-2) Rel Index Total Protein Albumin Urine WBC (Auto) Vancomycin Trough Salicylates Acetaminophen Plasma/Serum Alcohol Crossmatch 12/20/19 12/20/19 12/20/19 05:46 12:31 18:07 WBC RBC Hgb Hct MCH RDW Plt Count Lymph % (Auto) [place] % (Auto) [place] # Baso # Seg Neutrophils % Seg Neuts % (Manual) Lymphocytes % (Manual) Monocytes % (Manual) Seg Neutrophils # Seg Neutrophils # Man Lymphocytes # (Manual) Monocytes # (Manual) Eosinophils # (Manual) Basophils # (Manual) PT INR APTT ABG pH ABG pO2 ABG HCO3 ABG O2 Saturation ABG Base Excess ABG Hemoglobin Oxyhemoglobin Sodium Potassium Chloride Carbon Dioxide BUN Creatinine Glucose POC Glucose 131 H 128 H 134 H Lactic Acid Calcium Ionized Calcium Phosphorus Magnesium Total Bilirubin AST ALT Alkaline Phosphatase Ammonia Total Creatine Kinase CK-MB (CK-2) CK-MB (CK-2) Rel Index Total Protein Albumin Urine WBC (Auto) Vancomycin Trough Salicylates Acetaminophen Plasma/Serum Alcohol Crossmatch 04/03/20 04/03/20 04/03/20 03:28 03:28 07:21 WBC 29.4 H RBC 2.30 L Hgb 6.8 L Hct 20.2 L MCH RDW 20.2 H Plt Count 746 H Lymph % (Auto) [place] % (Auto) [place] # Baso # Seg Neutrophils % Seg Neuts % (Manual) 85.0 H Lymphocytes % (Manual) 8.0 L Monocytes % (Manual) Seg Neutrophils # Seg Neutrophils # Man 25.0 H Lymphocytes # (Manual) Monocytes # (Manual) 1.5 H Eosinophils # (Manual) 0.6 H Basophils # (Manual) PT INR APTT ABG pH ABG pO2 ABG HCO3 ABG O2 Saturation ABG Base Excess ABG Hemoglobin Oxyhemoglobin Sodium Potassium Chloride Carbon Dioxide 17 L BUN 57 H Creatinine 1.4 H D Glucose POC Glucose 124 H Lactic Acid Calcium Ionized Calcium Phosphorus Magnesium Total Bilirubin AST ALT Alkaline Phosphatase Ammonia Total Creatine Kinase CK-MB (CK-2) CK-MB (CK-2) Rel Index Total Protein Albumin Urine WBC (Auto) Vancomycin Trough Salicylates Acetaminophen Plasma/Serum Alcohol Crossmatch 12/21/19 12/21/19 12/21/19 08:56 12:06 14:53 WBC RBC Hgb 7.2 L Hct 22.9 L MCH RDW Plt Count Lymph % (Auto) [place] % (Auto) [place] # Baso # Seg Neutrophils % Seg Neuts % (Manual) Lymphocytes % (Manual) Monocytes % (Manual) Seg Neutrophils # Seg Neutrophils # Man Lymphocytes # (Manual) Monocytes # (Manual) Eosinophils # (Manual) Basophils # (Manual) PT INR APTT ABG pH ABG pO2 ABG HCO3 ABG O2 Saturation ABG Base Excess ABG Hemoglobin Oxyhemoglobin Sodium Potassium Chloride Carbon Dioxide BUN Creatinine Glucose POC Glucose 116 H Lactic Acid Calcium Ionized Calcium Phosphorus Magnesium Total Bilirubin AST ALT Alkaline Phosphatase Ammonia Total Creatine Kinase CK-MB (CK-2) CK-MB (CK-2) Rel Index Total Protein Albumin Urine WBC (Auto) Vancomycin Trough 33.8 H Salicylates Acetaminophen Plasma/Serum Alcohol Crossmatch 12/21/19 12/21/19 12/21/19 14:54 17:27 23:49 WBC RBC Hgb Hct MCH RDW Plt Count Lymph % (Auto) [place] % (Auto) [place] # Baso # Seg Neutrophils % Seg Neuts % (Manual) Lymphocytes % (Manual) Monocytes % (Manual) Seg Neutrophils # Seg Neutrophils # Man Lymphocytes # (Manual) Monocytes # (Manual) Eosinophils # (Manual) Basophils # (Manual) PT INR APTT ABG pH ABG pO2 ABG HCO3 ABG O2 Saturation ABG Base Excess ABG Hemoglobin Oxyhemoglobin Sodium Potassium Chloride Carbon Dioxide BUN Creatinine Glucose POC Glucose 145 H 127 H Lactic Acid Calcium Ionized Calcium Phosphorus Magnesium Total Bilirubin AST ALT Alkaline Phosphatase Ammonia Total Creatine Kinase CK-MB (CK-2) CK-MB (CK-2) Rel Index Total Protein Albumin Urine WBC (Auto) Vancomycin Trough Salicylates Acetaminophen Plasma/Serum Alcohol Crossmatch See Detail 12/22/19 12/22/19 12/22/19 04:43 05:56 08:40 WBC RBC Hgb Hct MCH RDW Plt Count Lymph % (Auto) [place] % (Auto) [place] # Baso # Seg Neutrophils % Seg Neuts % (Manual) Lymphocytes % (Manual) Monocytes % (Manual) Seg Neutrophils # Seg Neutrophils # Man Lymphocytes # (Manual) Monocytes # (Manual) Eosinophils # (Manual) Basophils # (Manual) PT INR APTT ABG pH ABG pO2 75.6 L ABG HCO3 ABG O2 Saturation ABG Base Excess -2.6 L ABG Hemoglobin 6.8 L Oxyhemoglobin 94.6 L Sodium Potassium Chloride Carbon Dioxide 17 L BUN 60 H Creatinine 1.4 H Glucose 126 H POC Glucose 153 H Lactic Acid Calcium Ionized Calcium Phosphorus Magnesium Total Bilirubin AST ALT Alkaline Phosphatase Ammonia Total Creatine Kinase CK-MB (CK-2) CK-MB (CK-2) Rel Index Total Protein Albumin Urine WBC (Auto) Vancomycin Trough Salicylates Acetaminophen Plasma/Serum Alcohol Crossmatch 12/22/19 12/22/19 12/23/19 12:07 17:49 04:30 WBC 22.4 H RBC 2.68 L Hgb 7.6 L Hct 22.9 L MCH RDW 19.9 H Plt Count 998 H Lymph % (Auto) [place] % (Auto) [place] # Baso # Seg Neutrophils % Seg Neuts % (Manual) 88.0 H Lymphocytes % (Manual) 2.0 L Monocytes % (Manual) 9.0 H Seg Neutrophils # Seg Neutrophils # Man 19.7 H Lymphocytes # (Manual) 0.4 L Monocytes # (Manual) 2.0 H Eosinophils # (Manual) Basophils # (Manual) PT INR APTT ABG pH ABG pO2 ABG HCO3 ABG O2 Saturation ABG Base Excess ABG Hemoglobin Oxyhemoglobin Sodium Potassium Chloride Carbon Dioxide BUN Creatinine Glucose POC Glucose 140 H 116 H Lactic Acid Calcium Ionized Calcium Phosphorus Magnesium Total Bilirubin AST ALT Alkaline Phosphatase Ammonia Total Creatine Kinase CK-MB (CK-2) CK-MB (CK-2) Rel Index Total Protein Albumin Urine WBC (Auto) Vancomycin Trough Salicylates Acetaminophen Plasma/Serum Alcohol Crossmatch 12/23/19 12/23/19 12/23/19 04:30 12:00 18:06 WBC RBC Hgb Hct MCH RDW Plt Count Lymph % (Auto) [place] % (Auto) [place] # Baso # Seg Neutrophils % Seg Neuts % (Manual) Lymphocytes % (Manual) Monocytes % (Manual) Seg Neutrophils # Seg Neutrophils # Man Lymphocytes # (Manual) Monocytes # (Manual) Eosinophils # (Manual) Basophils # (Manual) PT INR APTT ABG pH ABG pO2 ABG HCO3 ABG O2 Saturation ABG Base Excess ABG Hemoglobin Oxyhemoglobin Sodium Potassium 5.2 H Chloride Carbon Dioxide 21 L BUN 69 H Creatinine 1.5 H Glucose 117 H POC Glucose 128 H 138 H Lactic Acid Calcium Ionized Calcium Phosphorus Magnesium Total Bilirubin AST ALT Alkaline Phosphatase Ammonia Total Creatine Kinase CK-MB (CK-2) CK-MB (CK-2) Rel Index Total Protein Albumin Urine WBC (Auto) Vancomycin Trough Salicylates Acetaminophen Plasma/Serum Alcohol Crossmatch 12/23/19 12/24/19 12/24/19 23:46 04:31 05:08 WBC RBC Hgb Hct MCH RDW Plt Count Lymph % (Auto) [place] % (Auto) [place] # Baso # Seg Neutrophils % Seg Neuts % (Manual) Lymphocytes % (Manual) Monocytes % (Manual) Seg Neutrophils # Seg Neutrophils # Man Lymphocytes # (Manual) Monocytes # (Manual) Eosinophils # (Manual) Basophils # (Manual) PT INR APTT ABG pH ABG pO2 ABG HCO3 ABG O2 Saturation ABG Base Excess ABG Hemoglobin Oxyhemoglobin Sodium Potassium 5.3 H Chloride 107.6 H Carbon Dioxide 20 L BUN 72 H Creatinine 1.6 H Glucose 120 H POC Glucose 120 H 140 H Lactic Acid Calcium Ionized Calcium Phosphorus Magnesium Total Bilirubin AST ALT Alkaline Phosphatase Ammonia Total Creatine Kinase CK-MB (CK-2) CK-MB (CK-2) Rel Index Total Protein Albumin Urine WBC (Auto) Vancomycin Trough Salicylates Acetaminophen Plasma/Serum Alcohol Crossmatch 12/24/19 12/24/19 12/25/19 11:58 17:49 03:47 WBC 36.2 H RBC 2.92 L Hgb 8.4 L Hct 26.1 L MCH RDW 20.2 H Plt Count 942 H Lymph % (Auto) [place] % (Auto) [place] # Baso # Seg Neutrophils % Seg Neuts % (Manual) 97.5 H Lymphocytes % (Manual) 1.0 L Monocytes % (Manual) Seg Neutrophils # Seg Neutrophils # Man 35.3 H Lymphocytes # (Manual) 0.4 L Monocytes # (Manual) Eosinophils # (Manual) Basophils # (Manual) PT INR APTT ABG pH ABG pO2 ABG HCO3 ABG O2 Saturation ABG Base Excess ABG Hemoglobin Oxyhemoglobin Sodium Potassium Chloride Carbon Dioxide BUN Creatinine Glucose POC Glucose 146 H 131 H Lactic Acid Calcium Ionized Calcium Phosphorus Magnesium Total Bilirubin AST ALT Alkaline Phosphatase Ammonia Total Creatine Kinase CK-MB (CK-2) CK-MB (CK-2) Rel Index Total Protein Albumin Urine WBC (Auto) Vancomycin Trough Salicylates Acetaminophen Plasma/Serum Alcohol Crossmatch 12/25/19 12/25/19 12/25/19 03:47 05:30 12:23 WBC RBC Hgb Hct MCH RDW Plt Count Lymph % (Auto) [place] % (Auto) [place] # Baso # Seg Neutrophils % Seg Neuts % (Manual) Lymphocytes % (Manual) Monocytes % (Manual) Seg Neutrophils # Seg Neutrophils # Man Lymphocytes # (Manual) Monocytes # (Manual) Eosinophils # (Manual) Basophils # (Manual) PT INR APTT ABG pH ABG pO2 ABG HCO3 ABG O2 Saturation ABG Base Excess ABG Hemoglobin Oxyhemoglobin Sodium Potassium Chloride Carbon Dioxide 15 L BUN 70 H Creatinine 1.7 H Glucose 153 H POC Glucose 169 H 135 H Lactic Acid Calcium Ionized Calcium Phosphorus Magnesium Total Bilirubin AST ALT Alkaline Phosphatase Ammonia Total Creatine Kinase CK-MB (CK-2) CK-MB (CK-2) Rel Index Total Protein Albumin Urine WBC (Auto) Vancomycin Trough Salicylates Acetaminophen Plasma/Serum Alcohol Crossmatch 12/25/19 12/25/19 12/26/19 17:37 23:29 09:47 WBC 22.1 H RBC 2.83 L Hgb 7.9 L Hct 25.5 L MCH RDW 20.0 H Plt Count 894 H Lymph % (Auto) [place] % (Auto) [place] # Baso # Seg Neutrophils % Seg Neuts % (Manual) Lymphocytes % (Manual) Monocytes % (Manual) Seg Neutrophils # Seg Neutrophils # Man Lymphocytes # (Manual) Monocytes # (Manual) Eosinophils # (Manual) Basophils # (Manual) PT INR APTT ABG pH ABG pO2 ABG HCO3 ABG O2 Saturation ABG Base Excess ABG Hemoglobin Oxyhemoglobin Sodium Potassium Chloride Carbon Dioxide BUN Creatinine Glucose POC Glucose 120 H 140 H Lactic Acid Calcium Ionized Calcium Phosphorus Magnesium Total Bilirubin AST ALT Alkaline Phosphatase Ammonia Total Creatine Kinase CK-MB (CK-2) CK-MB (CK-2) Rel Index Total Protein Albumin Urine WBC (Auto) Vancomycin Trough Salicylates Acetaminophen Plasma/Serum Alcohol Crossmatch 12/26/19 12/26/19 12/26/19 09:47 11:46 17:52 WBC RBC Hgb Hct MCH RDW Plt Count Lymph % (Auto) [place] % (Auto) [place] # Baso # Seg Neutrophils % Seg Neuts % (Manual) Lymphocytes % (Manual) Monocytes % (Manual) Seg Neutrophils # Seg Neutrophils # Man Lymphocytes # (Manual) Monocytes # (Manual) Eosinophils # (Manual) Basophils # (Manual) PT INR APTT ABG pH ABG pO2 ABG HCO3 ABG O2 Saturation ABG Base Excess ABG Hemoglobin Oxyhemoglobin Sodium Potassium Chloride Carbon Dioxide 18 L BUN 65 H Creatinine 1.4 H Glucose 132 H POC Glucose 110 H 145 H Lactic Acid Calcium Ionized Calcium Phosphorus Magnesium Total Bilirubin AST ALT Alkaline Phosphatase Ammonia Total Creatine Kinase CK-MB (CK-2) CK-MB (CK-2) Rel Index Total Protein Albumin Urine WBC (Auto) Vancomycin Trough Salicylates Acetaminophen Plasma/Serum Alcohol Crossmatch 12/27/19 12/27/19 12/27/19 00:01 03:42 03:42 WBC 18.0 H RBC 2.86 L Hgb 8.0 L Hct 25.2 L MCH RDW 19.2 H Plt Count 873 H Lymph % (Auto) 8.4 L [place] % (Auto) 7.5 H [place] # 1.4 H Baso # 0.2 H Seg Neutrophils % 82.2 H Seg Neuts % (Manual) Lymphocytes % (Manual) Monocytes % (Manual) Seg Neutrophils # 14.8 H Seg Neutrophils # Man Lymphocytes # (Manual) Monocytes # (Manual) Eosinophils # (Manual) Basophils # (Manual) PT INR APTT ABG pH ABG pO2 ABG HCO3 ABG O2 Saturation ABG Base Excess ABG Hemoglobin Oxyhemoglobin Sodium Potassium Chloride Carbon Dioxide BUN 73 H Creatinine 1.4 H Glucose 119 H POC Glucose 124 H Lactic Acid Calcium Ionized Calcium Phosphorus Magnesium Total Bilirubin AST ALT Alkaline Phosphatase Ammonia Total Creatine Kinase CK-MB (CK-2) CK-MB (CK-2) Rel Index Total Protein Albumin Urine WBC (Auto) Vancomycin Trough Salicylates Acetaminophen Plasma/Serum Alcohol Crossmatch 12/27/19 12/27/19 12/27/19 05:45 11:45 17:29 WBC RBC Hgb Hct MCH RDW Plt Count Lymph % (Auto) [place] % (Auto) [place] # Baso # Seg Neutrophils % Seg Neuts % (Manual) Lymphocytes % (Manual) Monocytes % (Manual) Seg Neutrophils # Seg Neutrophils # Man Lymphocytes # (Manual) Monocytes # (Manual) Eosinophils # (Manual) Basophils # (Manual) PT INR APTT ABG pH ABG pO2 ABG HCO3 ABG O2 Saturation ABG Base Excess ABG Hemoglobin Oxyhemoglobin Sodium Potassium Chloride Carbon Dioxide BUN Creatinine Glucose POC Glucose 131 H 123 H 134 H Lactic Acid Calcium Ionized Calcium Phosphorus Magnesium Total Bilirubin AST ALT Alkaline Phosphatase Ammonia Total Creatine Kinase CK-MB (CK-2) CK-MB (CK-2) Rel Index Total Protein Albumin Urine WBC (Auto) Vancomycin Trough Salicylates Acetaminophen Plasma/Serum Alcohol Crossmatch 12/28/19 12/28/19 12/28/19 00:12 05:14 11:53 WBC RBC Hgb Hct MCH RDW Plt Count Lymph % (Auto) [place] % (Auto) [place] # Baso # Seg Neutrophils % Seg Neuts % (Manual) Lymphocytes % (Manual) Monocytes % (Manual) Seg Neutrophils # Seg Neutrophils # Man Lymphocytes # (Manual) Monocytes # (Manual) Eosinophils # (Manual) Basophils # (Manual) PT INR APTT ABG pH ABG pO2 ABG HCO3 ABG O2 Saturation ABG Base Excess ABG Hemoglobin Oxyhemoglobin Sodium Potassium Chloride Carbon Dioxide BUN Creatinine Glucose POC Glucose 138 H 130 H 146 H Lactic Acid Calcium Ionized Calcium Phosphorus Magnesium Total Bilirubin AST ALT Alkaline Phosphatase Ammonia Total Creatine Kinase CK-MB (CK-2) CK-MB (CK-2) Rel Index Total Protein Albumin Urine WBC (Auto) Vancomycin Trough Salicylates Acetaminophen Plasma/Serum Alcohol Crossmatch 12/28/19 12/29/19 12/29/19 17:39 00:01 18:11 WBC RBC Hgb Hct MCH RDW Plt Count Lymph % (Auto) [place] % (Auto) [place] # Baso # Seg Neutrophils % Seg Neuts % (Manual) Lymphocytes % (Manual) Monocytes % (Manual) Seg Neutrophils # Seg Neutrophils # Man Lymphocytes # (Manual) Monocytes # (Manual) Eosinophils # (Manual) Basophils # (Manual) PT INR APTT ABG pH ABG pO2 ABG HCO3 ABG O2 Saturation ABG Base Excess ABG Hemoglobin Oxyhemoglobin Sodium Potassium Chloride Carbon Dioxide BUN Creatinine Glucose POC Glucose 117 H 139 H 130 H Lactic Acid Calcium Ionized Calcium Phosphorus Magnesium Total Bilirubin AST ALT Alkaline Phosphatase Ammonia Total Creatine Kinase CK-MB (CK-2) CK-MB (CK-2) Rel Index Total Protein Albumin Urine WBC (Auto) Vancomycin Trough Salicylates Acetaminophen Plasma/Serum Alcohol Crossmatch 12/29/19 12/30/19 12/30/19 23:09 00:02 01:06 WBC 16.7 H RBC 2.91 L Hgb 8.2 L Hct 25.4 L MCH RDW 18.7 H Plt Count 708 H Lymph % (Auto) 9.4 L [place] % (Auto) [place] # 0.9 H Baso # Seg Neutrophils % 83.5 H Seg Neuts % (Manual) Lymphocytes % (Manual) Monocytes % (Manual) Seg Neutrophils # 14.0 H Seg Neutrophils # Man Lymphocytes # (Manual) Monocytes # (Manual) Eosinophils # (Manual) Basophils # (Manual) PT INR APTT ABG pH ABG pO2 ABG HCO3 ABG O2 Saturation ABG Base Excess ABG Hemoglobin Oxyhemoglobin Sodium Potassium Chloride Carbon Dioxide BUN Creatinine Glucose POC Glucose 120 H 114 H Lactic Acid Calcium Ionized Calcium Phosphorus Magnesium Total Bilirubin AST ALT Alkaline Phosphatase Ammonia Total Creatine Kinase CK-MB (CK-2) CK-MB (CK-2) Rel Index Total Protein Albumin Urine WBC (Auto) Vancomycin Trough Salicylates Acetaminophen Plasma/Serum Alcohol Crossmatch 12/30/19 12/30/19 12/30/19 01:06 04:23 05:18 WBC RBC Hgb Hct MCH RDW Plt Count Lymph % (Auto) [place] % (Auto) [place] # Baso # Seg Neutrophils % Seg Neuts % (Manual) Lymphocytes % (Manual) Monocytes % (Manual) Seg Neutrophils # Seg Neutrophils # Man Lymphocytes # (Manual) Monocytes # (Manual) Eosinophils # (Manual) Basophils # (Manual) PT INR APTT ABG pH ABG pO2 ABG HCO3 ABG O2 Saturation ABG Base Excess ABG Hemoglobin 8.3 L Oxyhemoglobin Sodium Potassium Chloride Carbon Dioxide BUN 70 H Creatinine Glucose 122 H POC Glucose 130 H Lactic Acid Calcium Ionized Calcium Phosphorus Magnesium Total Bilirubin AST ALT Alkaline Phosphatase Ammonia Total Creatine Kinase CK-MB (CK-2) CK-MB (CK-2) Rel Index Total Protein Albumin Urine WBC (Auto) Vancomycin Trough Salicylates Acetaminophen Plasma/Serum Alcohol Crossmatch 12/30/19 05:40 WBC RBC Hgb Hct MCH RDW Plt Count Lymph % (Auto) [place] % (Auto) [place] # Baso # Seg Neutrophils % Seg Neuts % (Manual) Lymphocytes % (Manual) Monocytes % (Manual) Seg Neutrophils # Seg Neutrophils # Man Lymphocytes # (Manual) Monocytes # (Manual) Eosinophils # (Manual) Basophils # (Manual) PT INR APTT ABG pH ABG pO2 ABG HCO3 ABG O2 Saturation ABG Base Excess ABG Hemoglobin Oxyhemoglobin Sodium Potassium Chloride Carbon Dioxide BUN Creatinine Glucose POC Glucose 135 H Lactic Acid Calcium Ionized Calcium Phosphorus Magnesium Total Bilirubin AST ALT Alkaline Phosphatase Ammonia Total Creatine Kinase CK-MB (CK-2) CK-MB (CK-2) Rel Index Total Protein Albumin Urine WBC (Auto) Vancomycin Trough Salicylates Acetaminophen Plasma/Serum Alcohol Crossmatch Allied health notes reviewed: RT
[2019-12-30] MEDS: SCOPOLAMINE TRANSDERMAL PATCH 72 HR TD SCH (13:59)
[2019-12-30] MEDS: QUEtiapine 100 MG TAB PO SCH (21:35)
[2019-12-31] MEDS: QUEtiapine 200 MG TAB PO SCH (09:03)
[2019-12-31] MEDS: LANSOPRAZOLE 30 MG SOLUTAB FEEDTUBE SCH (09:03)
[2019-12-31] MEDS: levETIRAcetam 500 MG/5 ML ORAL LIQD PO SCH ×2 (09:05→21:37)
[2019-12-31] MEDS: GLYCOPYRROLATE 1 MG TAB PO SCH ×3 (09:05→21:37)
[2019-12-31] MEDS: hydrOXYzine PAMOATE 25 MG CAP PO SCH ×2 (09:05→21:37)
[2019-12-31] MEDS: SERTRALINE 25 MG TAB PO SCH (09:06)
[2019-12-31] MEDS: MIRTAZAPINE 30 MG TAB PO SCH (09:06)
[2019-12-31] MEDS: TAMSULOSIN 0.4 MG CAP PO SCH (09:06)
--- NOTE | 2019-12-31 10:40 | Progress Note ---
Assessment and Plan Assessment and plan: Patient is a 54-year-old woman with a history of Hypertension, Depression, tobacco and alcohol dependency who presented to [facility] ED on 11/22/2019 due to cardiac arrest outside of the hospital. EMS found pt in PEA. Upon their arrival patient in sinus tachycardia. EMS were unable to intubate patient with a ET tube because she was clenching down therefore Joe airway placed per records. Patient received Narcan and Epinephrine. Patient's rhythm changed to PEA to sinus bradycardia, to PEA, then to sinus tach after receiving Narcan and Epinephrine. Per the ED physician who evaluated pt, Patient presented with a pulse, intermittent respirations, and bagging support via Joe airway with O2 sat of 100%. Accu-Chek of 71 obtained by EMS Status post cardiac arrest, etiology unknown Acute respiratory failure with hypoxia s/p Intubation via ETT >96 hours: Trach and PEG planned, CCM following Acute cystitis with Sepsis, not sure POA, treated with antibiotics and this completed a few days 11/29/2019 ago no growth was noted on cultures no fever. We will continue off antibiotics at this time. Seizure disorder: treat with Keppra Presumed anoxic brain injury: Neurology is following Alcohol abuse: CIWA protocol Acute metabolic encephalopathy/toxic encephalopathy due to the above BHAVANA secondary to vasomotor nephropathy: treat with IVF Hypertension: watch bp closely, prn IV antihypertensives prn Distended abdomen: treat with NGT to suction Transaminitis with Ischemic hepatitis Metabolic acidosis/alcoholic acidosis/lactic acidosis H. Influenza, tracheobronchitis Hypernatremia: free water and monitor bmp closely >DNR DVT ppx: held sq heparin due to drop in h/h and anemia 12/04-: Patient failed CPAP trial became apneic according to documentation. No clinical change, continue current management, monitor H/H Awaiting labs. No new changes at this time opens eyes. Surgeon discussed trach and PEG with family but they want to get more information about hospice which they have been directed to the case management manager. Patient overnight had a episode of vomiting. Zofran started. 12/11/19: I took over patient care on day 18, Patient remains intubated, daily weaning trails. Trach and PEG planned once family consents. Mother is Anh Jesus @ [phone]. CCT 31 minutes 12/12/19: transfuse PRBC, s/p trach and PEG 12/13/19: Trach and PEG done, New fevers today, suspected Aspiration Pneumonitis vs Atelectasis; get blood cultures and empirically treat with ABX, levaquin/flagyl IV combo. Renewed restraints. ARF improved drastically as Cr went from 2.8 to 1.9 overnigh. however, WBC skyrocketed to 38.3k from 18k. Will repeat bmp and cbc, CCT 33 minutes 12/14/19: WBC improved slightly, potassium 2.5, renal function continue to improve. replete potassium, still febrile, re-consulted ID; give free water flushes via PEG. Dispo: aggressive wean and once off vent will have to discharge home, no insurance. 12/15/19: Still on MV Peep 6 fiO2 50%, ordered AM labs, renewed restraints. Right arm swollen, get Venous doppler-not done today due to COVID-19-->tomorrow 12/16/19: still on MV, PEEP 6 FiO2 30%, replete potassium, renewed restraints, give Tylenol of fevers (first real temp >100.4 since 12/14/19), green-culture, get CXR, UA. Venous doppler done and negative for DVT 12/17/19: Day 24 on MV, PEEP 6 FiO2 30%, trying to wean, held sq heparin due to drop in h/h and anemia, renewed restraints, fever appears to be due to worsening pneumonia, UA negative, pCXR Impression: Slight interval worsening of a c onsolidative opacity in the left mid to lower lung, worrisome for pneumonia in the appropriate clinical setting. Adjust Vancomycin dose continue cefepime with ID following. Swollen right arm with Venous doppler of right arm r/o DVT ordered but not done due to COVID-19, 12/25/19: Resumed care, Hospice discussed yesterday, will follow up. WBC increased to 36.4k, hgb steady at 8.4, +FOBT, Cr creeping up at 1.7 12/26/19: I called Jeremy Anh Jesus ([phone]) and she asked if I could call her back. Patient remains in PVS (persistent vegetative state) with poor prognosis, doesn't really need restraints, still needing Mechanical Ventilation/Life support. Not sedated Possible withdraw today, I called Dr. Naik. I called mother again and d/w mother, she wants to come and withdraw daughter from [facility] tomorrow evening around 6-7pm 12/27/19: still poor prognosis, still in PVS, anticipate Withdrawal today==>d/w Dr. Aldana and he would prefer withdrawal at Hospice facility, d/w mother multiple times, I waited until 7pm to met but they came shortly after. They did sign the DNR form. 12/28/19: still poor prognosis, does not restraints, hopefully to Hospice inpatient Patient has been on MV/life support for 35 days, I not sure she is weanable, d/w Dr. Hernandez 12/29/19: still poor prognosis, still Intubated but not sedated, will grimace now, no purposeful movement. CPAP trial today, trying to wean. 12/30/19: still intubated via trach, more responsive, still unable to move, no restraints needed. 12/31/19: still intubated via trach, no restraints needed, FiO2 30%, PEEP 6, Difficulty getting to Hospice, I spoke with mother and wants to kept updated. Patient has 4 kids, 2 sons in care home, 1 son is transgender and not involved per mother; Daughter is Deborah is NOK History Interval history: Patient was seen and examined. Follow-up on current diagnosis of Respiratory failure. Overnight uneventful as no events directly reported to me. Imaging, nursing note, chart, labs and old chart reviewed. PUI?: No COVID19: Negative Hospitalist Physical - Physical exam Narrative exam: Gen: critical ill, intubated, unresponsive not on sedation HEENT: ETT in place Neck: supple, no adenopathy, no thyromegaly, no JVD CVS/Heart: Regular Tachycardia, normal S1S2, pulses present bilaterally Chest/Lungs: CTA B, Symmetrical chest expansion, good air entry bilaterally GI/Abdomen: soft, NT+distended, +bowel sounds, no guarding or rebound MSK: right arm swollen Neuro: doesnt follow commands Psych: not responding - Constitutional Vitals: Temp Pulse Resp BP Pulse Ox 98.2 F 106 H 18 133/84 99 12/31/19 08:00 12/31/19 08:05 12/31/19 08:05 12/31/19 08:05 12/31/19 08:05 General appearance: Present: no acute distress, other (on vent with sedation) Results - Labs CBC & Chem 7: 12/30/19 01:06 12/30/19 01:06 Labs: Laboratory Last Values WBC 16.7 K/mm3 (4.5-11.0) H 12/30/19 01:06 RBC 2.91 M/mm3 (3.65-5.03) L 12/30/19 01:06 Hgb 8.2 gm/dl (10.1-14.3) L 12/30/19 01:06 Hct 25.4 % (30.3-42.9) L 12/30/19 01:06 MCV 87 fl (79-97) 12/30/19 01:06 MCH 28 pg (28-32) 12/30/19 01:06 MCHC 32 % (30-34) 12/30/19 01:06 RDW 18.7 % (13.2-15.2) H 12/30/19 01:06 Plt Count 708 K/mm3 (140-440) H 12/30/19 01:06 Lymph % (Auto) 9.4 % (13.4-35.0) L 12/30/19 01:06 [place] % (Auto) 5.4 % (0.0-7.3) 12/30/19 01:06 Eos % (Auto) 1.1 % (0.0-4.3) 12/30/19 01:06 Baso % (Auto) 0.6 % (0.0-1.8) 12/30/19 01:06 Lymph # 1.6 K/mm3 (1.2-5.4) 12/30/19 01:06 [place] # 0.9 K/mm3 (0.0-0.8) H 12/30/19 01:06 Eos # 0.2 K/mm3 (0.0-0.4) 12/30/19 01:06 Baso # 0.1 K/mm3 (0.0-0.1) 12/30/19 01:06 Add Manual Diff Complete 12/25/19 03:47 Total Counted 200 12/25/19 03:47 Seg Neutrophils % 83.5 % (40.0-70.0) H 12/30/19 01:06 Seg Neuts % (Manual) 97.5 % (40.0-70.0) H 12/25/19 03:47 Band Neutrophils % 0 % 12/25/19 03:47 Lymphocytes % (Manual) 1.0 % (13.4-35.0) L 12/25/19 03:47 Reactive Lymphs % (Man) 0 % 12/25/19 03:47 Monocytes % (Manual) 1.5 % (0.0-7.3) 12/25/19 03:47 Eosinophils % (Manual) 0 % (0.0-4.3) 12/25/19 03:47 Basophils % (Manual) 0 % (0.0-1.8) 12/25/19 03:47 Metamyelocytes % 0 % 12/25/19 03:47 Myelocytes % 0 % 12/25/19 03:47 Promyelocytes % 0 % 12/25/19 03:47 Blast Cells % 0 % 12/25/19 03:47 Nucleated RBC % Not Reportable 12/25/19 03:47 Seg Neutrophils # 14.0 K/mm3 (1.8-7.7) H 12/30/19 01:06 Seg Neutrophils # Man 35.3 K/mm3 (1.8-7.7) H 12/25/19 03:47 Band Neutrophils # 0.0 K/mm3 12/25/19 03:47 Lymphocytes # (Manual) 0.4 K/mm3 (1.2-5.4) L 12/25/19 03:47 Abs React Lymphs (Man) 0.0 K/mm3 12/25/19 03:47 Monocytes # (Manual) 0.5 K/mm3 (0.0-0.8) 12/25/19 03:47 Eosinophils # (Manual) 0.0 K/mm3 (0.0-0.4) 12/25/19 03:47 Basophils # (Manual) 0.0 K/mm3 (0.0-0.1) 12/25/19 03:47 Metamyelocytes # 0.0 K/mm3 12/25/19 03:47 Myelocytes # 0.0 K/mm3 12/25/19 03:47 Promyelocytes # 0.0 K/mm3 12/25/19 03:47 Blast Cells # 0.0 K/mm3 12/25/19 03:47 Pathologist Review 12/13/19 07:48 WBC Morphology Not Reportable 12/25/19 03:47 Hypersegmented Neuts Not Reportable 12/25/19 03:47 Hyposegmented Neuts Not Reportable 12/25/19 03:47 Hypogranular Neuts Not Reportable 12/25/19 03:47 Smudge Cells Not Reportable 12/25/19 03:47 Toxic Granulation Not Reportable 12/25/19 03:47 Toxic Vacuolation Not Reportable 12/25/19 03:47 Dohle Bodies Not Reportable 12/25/19 03:47 Pelger-Huet Anomaly Not Reportable 12/25/19 03:47 Dominique Rods Not Reportable 12/25/19 03:47 Platelet Estimate Consistent w auto 12/25/19 03:47 Clumped Platelets Not Reportable 12/25/19 03:47 Plt Clumps, EDTA Not Reportable 12/25/19 03:47 Large Platelets Not Reportable 12/25/19 03:47 Giant Platelets Not Reportable 12/25/19 03:47 Platelet Satelliting Not Reportable 12/25/19 03:47 Plt Morphology Comment Not Reportable 12/25/19 03:47 RBC Morphology Not Reportable 12/25/19 03:47 Dimorphic RBCs Not Reportable 12/25/19 03:47 Polychromasia Not Reportable 12/25/19 03:47 Hypochromasia Not Reportable 12/25/19 03:47 Poikilocytosis Not Reportable 12/25/19 03:47 Anisocytosis 1+ 12/25/19 03:47 Microcytosis Not Reportable 12/25/19 03:47 Macrocytosis Not Reportable 12/25/19 03:47 Spherocytes Not Reportable 12/25/19 03:47 Pappenheimer Bodies Not Reportable 12/25/19 03:47 Sickle Cells Not Reportable 12/25/19 03:47 Target Cells Not Reportable 12/25/19 03:47 Tear Drop Cells Not Reportable 12/25/19 03:47 Ovalocytes Not Reportable 12/25/19 03:47 Helmet Cells Not Reportable 12/25/19 03:47 [place] Bodies Not Reportable 12/25/19 03:47 [place] Rings Not Reportable 12/25/19 03:47 [place] Cells Not Reportable 12/25/19 03:47 Bite Cells Not Reportable 12/25/19 03:47 Crenated Cell Not Reportable 12/25/19 03:47 Elliptocytes Not Reportable 12/25/19 03:47 Acanthocytes (Spur) Not Reportable 12/25/19 03:47 Rouleaux Not Reportable 12/25/19 03:47 Hemoglobin C Crystals Not Reportable 12/25/19 03:47 Schistocytes Not Reportable 12/25/19 03:47 Malaria parasites Not Reportable 12/25/19 03:47 Gregg Bodies Not Reportable 12/25/19 03:47 Hem Pathologist Commnt No 12/25/19 03:47 PT 17.0 Sec. (12.2-14.9) H 11/23/19 03:47 INR 1.36 (0.87-1.13) H 11/23/19 03:47 APTT 128.2 Sec. (24.2-36.6) H* 11/23/19 03:47 Heparin Anti-Xa Level 0.31 U.I./ml (0.3-0.7) 11/23/19 09:03 ABG pH 7.440 pH Units (7.350-7.450) 12/30/19 04:23 ABG pCO2 36.6 mm Hg 12/30/19 04:23 ABG pO2 89.9 mm Hg (80.0-90.0) 12/30/19 04:23 ABG HCO3 24.3 mmol/L (20.0-26.0) 12/30/19 04:23 ABG O2 Saturation 97.3 % (95.0-99.0) 12/30/19 04:23 ABG O2 Content 11.3 (0.0-44) 12/30/19 04:23 ABG Base Excess 0.3 mmol/L (-2.0-3.0) 12/30/19 04:23 ABG Hemoglobin 8.3 gm/dl (12.0-16.0) L 12/30/19 04:23 ABG Carboxyhemoglobin 1.4 % (0.0-5.0) 12/30/19 04:23 ABG Methemoglobin 0.5 % (0.0-1.5) 12/30/19 04:23 Oxyhemoglobin 95.5 % (95.0-99.0) 12/30/19 04:23 FiO2 30 % 12/30/19 04:23 Sodium 139 mmol/L (137-145) 12/30/19 01:06 Potassium 4.4 mmol/L (3.6-5.0) 12/30/19 01:06 Chloride 102.7 mmol/L (98-107) 12/30/19 01:06 Carbon Dioxide 22 mmol/L (22-30) 12/30/19 01:06 Anion Gap 19 mmol/L 12/30/19 01:06 BUN 70 mg/dL (7-17) H 12/30/19 01:06 Creatinine 1.1 mg/dL (0.7-1.2) 12/30/19 01:06 Estimated GFR > 60 ml/min 12/30/19 01:06 BUN/Creatinine Ratio 64 % 12/30/19 01:06 Glucose 122 mg/dL (65-100) H 12/30/19 01:06 POC Glucose 109 (70-105) H 12/31/19 05:19 Lactic Acid 1.80 mmol/L (0.7-2.0) 11/25/19 05:05 Calcium 9.8 mg/dL (8.4-10.2) 12/30/19 01:06 Ionized Calcium 4.5 mg/dL (4.8-5.6) L 11/23/19 06:32 Phosphorus 4.20 mg/dL (2.5-4.5) D 11/28/19 08:59 Magnesium 2.30 mg/dL (1.7-2.3) 11/29/19 13:41 Total Bilirubin 0.40 mg/dL (0.1-1.2) 12/13/19 07:48 AST 27 units/L (5-40) 12/13/19 07:48 ALT 26 units/L (7-56) 12/13/19 07:48 Alkaline Phosphatase 316 units/L (35-129) H 12/13/19 07:48 Ammonia 42.0 umol/L (25-60) 11/29/19 13:41 Total Creatine Kinase 139 units/L (30-135) H 11/22/19 23:27 CK-MB (CK-2) 8.3 ng/mL (0.0-4.0) H 11/22/19 23:27 CK-MB (CK-2) Rel Index 5.9 (0-4) H 11/22/19 23:27 Troponin T < 0.010 ng/mL (0.00-0.029) 11/22/19 23:27 Total Protein 6.8 g/dL (6.3-8.2) 12/13/19 07:48 Albumin 2.4 g/dL (3.9-5) L 12/13/19 07:48 Albumin/Globulin Ratio 0.5 % 12/13/19 07:48 Lipase 18 units/L (13-60) 11/23/19 00:34 Procalcitonin 1.09 ng/mL (<0.15) 11/23/19 04:53 Urine Color Yellow (Yellow) 12/16/19 Unknown Urine Turbidity Slightly-cloudy (Clear) 12/16/19 Unknown Urine pH 5.0 (5.0-7.0) 12/16/19 Unknown Ur Specific [place] 1.018 (1.003-1.030) 12/16/19 Unknown Urine Protein 30 mg/dl mg/dL (Negative) 12/16/19 Unknown Urine Glucose (UA) Neg mg/dL (Negative) 12/16/19 Unknown Urine Ketones Neg mg/dL (Negative) 12/16/19 Unknown Urine Blood Sm (Negative) 12/16/19 Unknown Urine Nitrite Neg (Negative) 12/16/19 Unknown Urine Bilirubin Neg (Negative) 12/16/19 Unknown Urine Urobilinogen < 2.0 mg/dL (<2.0) 12/16/19 Unknown Ur Leukocyte Esterase Neg (Negative) 12/16/19 Unknown Urine WBC (Auto) 6.0 /HPF (0.0-6.0) 12/16/19 Unknown Urine RBC (Auto) 9.0 /HPF (0.0-6.0) 12/16/19 Unknown U Epithel Cells (Auto) < 1.0 /HPF (0-13.0) 12/16/19 Unknown Urine Bacteria (Auto) 2+ /HPF (Negative) 11/22/19 23:17 Hyaline Casts 3 /LPF 12/16/19 Unknown Granular Casts 3 /LPF 12/16/19 Unknown Urine Mucus Few /HPF 12/16/19 Unknown Vancomycin Trough 33.8 ug/mL (5.0-20.0) H 12/21/19 08:56 Random Vancomycin 16.2 ug/mL (0-40.0) 12/24/19 04:31 Salicylates < 0.3 mg/dL (2.8-20.0) L 11/22/19 23:27 Urine Opiates Screen Presumptive negative 11/22/19 23:17 Urine Methadone Screen Presumptive negative 11/22/19 23:17 Acetaminophen < 5.0 ug/mL (10.0-30.0) L 11/22/19 23:27 Ur Barbiturates Screen Presumptive negative 11/22/19 23:17 Ur Phencyclidine Scrn Presumptive negative 11/22/19 23:17 Ur Amphetamines Screen Presumptive negative 11/22/19 23:17 U Benzodiazepines Scrn Presumptive negative 11/22/19 23:17 Urine Cocaine Screen Presumptive negative 11/22/19 23:17 U Marijuana (THC) Screen Presumptive negative 11/22/19 23:17 Drugs of Abuse Note Disclamer 11/22/19 23:17 Plasma/Serum Alcohol 0.08 % (0-0.07) H 11/22/19 23:27 Hepatitis A IgM Ab Non-reactive (NonReactive) 11/23/19 01:19 Hep Bs Antigen Non-reactive (Negative) 11/23/19 01:19 Hep B Core IgM Ab Non-reactive (NonReactive) 11/23/19 01:19 Hepatitis C Antibody Non-reactive (NonReactive) 11/23/19 01:19 Blood Type O POSITIVE 12/21/19 14:54 Antibody Screen Negative 12/21/19 14:54 Crossmatch See Detail 12/21/19 14:54 - Diagnostic Impressions Diagnostic Impressions: Echocardiogram 11/23/19 03:58 Transthoracic Echocardiogram Indication: Cardiac arrest BP: 131/89 HR: 115 Conclusions *The study quality is technically difficult. *Global left ventricular wall motion and contractility are within normal limits. *The estimated ejection fraction is 55-60%. *Abnormal left ventricular diastolic filling is observed, consistent with impaired relaxation. *There is no pericardial effusion. Findings Procedure Info: The study quality is technically difficult. The study was technically limited due to the patient's inability to lay in the left lateral decubitus position. Left Ventricle: The left ventricular chamber size is normal. There is no left ventricular hypertrophy. Global left ventricular wall motion and contractility are within normal limits. Global left ventricular systolic function is normal. The estimated ejection fraction is 55-60%. Abnormal left ventricular diastolic filling is observed, consistent with impaired relaxation. Left Atrium: The left atrial chamber size is normal. Aortic Valve: The aortic valve leaflets are mildly thickened. Mitral Valve: The mitral valve leaflets are mildly thickened. There is no evidence of mitral regurgitation. Tricuspid Valve: The tricuspid valve leaflets are normal. There is trace tricuspid regurgitation. The right ventricular systolic pressure is calculated at 33 mmHg. Pulmonic Valve: The pulmonic valve appears normal. Pericardium: The pericardium appears normal. There is no pericardial effusion. Aorta: The aorta appears normal. Venous: The inferior vena cava appears normal in size. Measurements Chambers 2D Name Value Normal Range IVSd (2D) 0.94 cm (0.6 - 1.1) LVPWd (2D) 0.81 cm (0.6 - 1.1) LVIDd (2D) 3.6 cm (3.7 - 5.6) LVIDs (2D) 2.27 cm (2 - 3.8) LV FS (2D) 36.93 % - EF Teichholz (2D) 67.76 % - Ao root diameter (2D) 3.03 cm (2 - 3.7) Volumes/Mass Name Value Normal Range LA ESV SP 4CH (A/L) 16.89 ml - LA ESV SP 4CH (MOD) 15.52 ml - Diastolic/Systolic Function Name Value Normal Range MV E-wave Vmax 0.55 m/sec - MV deceleration time 200.89 msec - MV A-wave Vmax 0.68 m/sec - MV E:A ratio 0.82 ratio - Aortic Valve Name Value Normal Range AV Vmax 1.1 m/sec - AV VTI 15.9 cm - AV peak gradient 4.86 mmHg - AV mean gradient 2.59 mmHg - LVOT diameter 2 cm - LVOT Vmax 1.03 m/sec - LVOT VTI 15.87 cm - LVOT peak gradient 4.24 mmHg - LVOT mean gradient 2.41 mmHg - SV LVOT 49.77 ml - JOSÉ MIGUEL (continuity Vmax) 2.93 cm2 - JOSÉ MIGUEL (continuity VTI) 3.13 cm2 - Tricuspid Valve Name Value Normal Range TR Vmax 2.74 m/sec - TR peak gradient 303 mmHg - RAP 3 mmHg - RVSP 33 mmHg - IVC diameter 1.77 cm (1.2 - 2.3) Pulmonic Valve/Qp:Qs Name Value Normal Range PV Vmax 0.77 m/sec - PV peak gradient 2.4 mmHg - PV acceleration time 114.18 msec - Echocardiogram Limited Views 12/17/19 14:53 Transthoracic Echocardiogram Indication: R/O Vegetations BP: 144/83 HR: 133 Conclusions *Global left ventricular systolic function is mildly decreased. *The estimated ejection fraction is 45-50%. *A trivial pericardial effusion is visualized. Findings Left Ventricle: The left ventricular chamber size is normal. Global left ventricular systolic function is mildly decreased. The estimated ejection fraction is 45-50%. Left Atrium: The left atrial chamber size is normal. Right Ventricle: The right ventricular cavity size is normal. Right Atrium: The right atrial cavity size is normal. Aortic Valve: The aortic valve is not well visualized. There is no evidence of aortic regurgitation. Mitral Valve: The mitral valve leaflets are mildly thickened. There is trace of mitral regurgitation. Tricuspid Valve: The tricuspid valve leaflets are mildly thickened. There is trace tricuspid regurgitation. The right ventricular systolic pressure is calculated at 29 mmHg. Pulmonic Valve: The pulmonic valve is not well visualized. There is no evidence of pulmonic regurgitation. Pericardium: A trivial pericardial effusion is visualized. Aorta: There is no dilatation of the ascending aorta. There is no dilatation of the aortic root. Venous: The inferior vena cava appears normal in size. There is a greater than 50% respiratory change in the inferior vena cava dimension. Measurements Chambers 2D Name Value Normal Range IVSd (2D) 0.83 cm (0.6 - 1.1) LVPWd (2D) 0.98 cm (0.6 - 1.1) LVIDd (2D) 3.71 cm (3.7 - 5.6) LVIDs (2D) 2.93 cm (2 - 3.8) LV FS (2D) 21.12 % - EF Teichholz (2D) 43.71 % - Ao root diameter (2D) 3.02 cm (2 - 3.7) Volumes/Mass Name Value Normal Range LA ESV SP 4CH (A/L) 36.8 ml - LA ESV SP 2CH (A/L) 45.89 ml - LA ESV BP (A/L) 42.35 ml - LA ESV BP (A/L) index 26.63 ml/m2 - LA ESV SP 4CH (MOD) 34.42 ml - LA ESV SP 2CH (MOD) 44.21 ml - LA ESV BP (MOD) 39.82 ml - LA ESV BP (MOD) index 25.05 ml/m2 - Aortic Valve Name Value Normal Range LVOT diameter 1.63 cm - Tricuspid Valve Name Value Normal Range TR Vmax 2.56 m/sec - TR peak gradient 26 mmHg - RAP 3 mmHg - RVSP 29 mmHg - IVC diameter 1.83 cm (1.2 - 2.3) [place]/IV: Voiding Method Indwelling Catheter IV Catheter Type [Forearm] Peripheral IV IV Catheter Type [Left Forearm Peripheral IV ] IV Catheter Type [Right Peripheral IV Antecubital] IV Catheter Type [Right Hand] Peripheral IV IV Catheter Type [Right Wrist] Peripheral IV IV Catheter Type [Left Wrist] Peripheral IV IV Catheter Type [Left Peripheral IV Antecubital] IV Catheter Type [Right INT / Saline Lock Forearm] IV Catheter Type [Left Hand] Peripheral IV Active Medications - Current Medications Current Medications: Generic Name Dose Route Start Last Admin Trade Name Freq PRN Reason Stop Dose Admin Acetaminophen 650 mg 12/06/19 10:25 12/25/19 00:59 Tylenol FEEDTUBE 650 mg Q6H PRN Administration TEMP >/=100.3 Lipase/Protease/Amylase 1 each 11/23/19 11:[address] 10,500 Unit FEEDTUBE PRN PRN For Clogged Feeding Tube Fentanyl 50 mcg 12/05/19 02:10 12/12/19 20:04 Sublimaze IV 50 mcg Q10MIN PRN Administration ANALGESIA Glycopyrrolate 1 mg 12/24/19 14:00 12/31/19 09:05 Robinul PO 1 mg TID LUCHO Administration Hydralazine HCl 10 mg 11/24/19 00:45 12/18/19 13:25 Apresoline IV 10 mg Q6H PRN Administration SBP > 160 Hydroxyzine Pamoate 25 mg 12/06/19 10:00 12/31/19 09:05 Vistaril PO 25 mg BID LUCHO Administration Lansoprazole 30 mg 11/27/19 10:00 12/31/19 09:03 Prevacid Solutab FEEDTUBE 30 mg QDAY LUCHO Administration Levetiracetam 500 mg 11/29/19 10:00 12/31/19 09:05 Keppra PO 500 mg BID LUCHO Administration Lorazepam 2 mg 11/26/19 11:09 12/25/19 00:17 Ativan IV 2 mg Q4H PRN Administration Agitation Mirtazapine 30 mg 12/06/19 10:00 12/31/19 09:06 Remeron PO 30 mg DAILY LUCHO Administration Morphine Sulfate 2 mg 12/12/19 18:40 12/24/19 23:04 Morphine IV 2 mg Q4H PRN Administration Pain, Moderate (4-6) Ondansetron HCl 4 mg 12/10/19 07:53 12/10/19 09:51 Zofran IV 4 mg Q4H PRN Administration Nausea And Vomiting Quetiapine Fumarate 200 mg 12/23/19 10:00 12/31/19 09:03 Seroquel PO 200 mg QAM LUCHO Administration Quetiapine Fumarate 200 mg 12/25/19 22:00 12/30/19 21:35 Seroquel PO 200 mg QHS LUCHO Administration Scopolamine 1 each 12/12/19 15:00 12/30/19 13:59 Transderm-Scop TD 1 each Q3D LUCHO Administration Senna/Docusate Sodium 2 tab 12/24/19 07:00 Senokot S PO BID PRN CONSTIPATION Sertraline HCl 25 mg 12/06/19 10:00 12/31/19 09:06 Zoloft PO 25 mg QDAY LUCHO Administration Simple Syrup 15 ml 11/23/19 11:50 Simple Syrup FEEDTUBE PRN PRN Hypoglycemia Simple Syrup 30 ml 11/23/19 11:50 Simple Syrup FEEDTUBE PRN PRN Hypoglycemia Sodium Bicarbonate 325 mg 11/23/19 11:50 Sodium Bicarbonate FEEDTUBE PRN PRN For Clogged Feeding Tube Tamsulosin HCl 0.4 mg 12/14/19 13:00 12/31/19 09:06 Flomax PO 0.4 mg QDAY LUCHO Administration Nutrition/Malnutrition Assess - Dietary Evaluation Nutrition/Malnutrition Findings: Nutrition Notes Start: 11/23/19 11:29 Freq: Status: Active Protocol: Document 12/28/19 12:14 LM (Rec: 12/28/19 12:17 LM [email or web address]) Nutrition Notes Initial or Follow up Reassessment Current Diagnosis Hypertension Other Pertinent Diagnosis Cardaic arrest, ETOH dependence, UTI Current Diet Vital AF 1.2 at 50 ml/hr Labs/Tests Reviewed Pertinent Medications Reviewed Height 5 ft 6 in Weight 56 kg [place] Body Weight (kg) 59.09 BMI 19.9 Weight change and time frame wt change noted, pt with edema Subjective/Other Information TF running at goal and pt is tolerating. Percent of energy/protein needs met: 100%/100% Burn Absent Trauma Absent GI Symptoms None Current % PO Negligible Minimum of two criteria No Fluid Accumulation Mild (non-severe) #1 Nutrition Diagnosis Inadequate oral intake Diagnosis Progress(for reassessment Continues documentation) Is patient on ventilator? Yes Is Patient Ambulatory and/or Out of Bed No REE-([facility]-confined to bed) [phone] Calculation Used for Recommendations [facility] Additional Notes Protein: 66-110g (1.2-2g/kg) Fluid: 1 ml/kcal Nutrition Intervention Change Diet Order: Continue TF Nutrition Support: Vital AF 1.2 at 50 ml/hr Flush 80 ml q4h Kcal 1,440 Protein (gm) 90 Fluid (mL) 973 Goal #1 TF tolerance Goal #2 Meet at least 80% of energy and protein needs via TF Anticipated Discharge Needs: unable to determine at this time Follow-Up By: 01/02/20 Additional Comments F/U for TF tolerance
--- NOTE | 2019-12-31 13:35 | Progress Note ---
Assessment and Plan Acute cardiopulmonary arrest with ROSC Acute hypoxemic respiratory failure on MVS Acute metabolic-toxic encephalopathy Metabolic acidosis/alcoholic acidosis/Lactic acidosis Ischemic hepatitis Leucocytosis with lactic acidosis Tobacco use disorder ALcohol use Disorder Hypokalemia High grade fevers - no new issues; continue care as below - repeat CXR prn at this point - continue daily SAT's and assessment for readiness for SBT (For PSV trial today) - Continue to wean supplemental oxygen for target O2 sat's > 90% - continue to rest on AC mode qhs - VAP bundle addressed (continue aspiration precautions, HOB > 40) - continue bronchodilators with routine trach care and pulmonary hygiene per RT - continue Seroquel to see if aqids weaning as ventiolation is adequate and perhaps tachypnea on PSV mode has a neural component - continue Antibiotics per ID recommendations; de-escalate based on HILARIO /sensitivities / clinical progress - continue Seroquel for tentative delirium and to spare IV sedation - continue Reglan for G.I. motility - Continue VTE and Stress ulcer prophylaxis - Continue enteric nutritional support - Monitor glycemic control, with target blood glucose 140-180 mg/dL while critically ill (Avoid hypoglycemia) - ABG and CXR prn - Continue to avoid nephrotoxins, adjust all medications fro GFR and CrCL - Continue to avoid benzodiazepines , as much as possible, to reduce the possibility of delirium - Continue prn analgesia per CPOT score - Continue to maintain of sleep-wake cycle, avoid delirium - PT/OT/ROM exercises- awaiting PT/OT evaluation - Continue mobility protocol and skin assessment per protocol for pressure ulcer prevention - Continue to monitor for clinical seizures - Continue Nicotine withdrawal precautions, alcohol withdrawal precautions - continue other care per attending / other consultants ..... re-evaluate in am & prn CONDITION: CRITICAL PROGNOSIS: GUARDED CODE STATUS: FULL CODE The high probability of a clinically significant, sudden or life-threatening deterioration of the [respiratory, cardiovascular & neurologic] system(s) required my full and direct attention, intervention and personal management. The aggregate critical care time was [34] minutes without overlap. Time includes spent on; [x] Data Review and interpretation [x] Patient assessment and monitoring of vital signs [x] Documentation [x] Medication orders and management Subjective Date of service: 12/31/19 Principal diagnosis: Ac cardiopulmonary arrest; Ac hypoxemic resp failure; Acute encephalopathy Interval history: Patient is seen today for: Acute cardiopulmonary arrest with ROSC; Acute hypoxemic respiratory failure; Acute metabolic-toxic encephalopathy; Ischemic hepatitis; Leucocytosis with lactic acidosis; Tobacco use disorder; Alcohol use Disorder; Hypokalemia; High grade fevers Seen and examined at bedside; 24hour events reviewed; nursing and respiratory care staff consulted; no adverse overnight events reported to me; resting peacefully in bed; AMS is persistent; weaning tenuously PUI?: No COVID19: Negative Objective Vital Signs - 12hr 12/31/19 12/31/19 12/31/19 02:00 03:00 03:10 Temperature 97.4 F L Pulse Rate 108 H 110 H Pulse Rate [ From Monitor] Respiratory 23 21 Rate Blood Pressure 135/87 130/80 O2 Sat by Pulse 99 97 Oximetry 12/31/19 12/31/19 12/31/19 04:00 04:55 05:00 Temperature Pulse Rate 111 H 108 H 108 H Pulse Rate [ 107 H From Monitor] Respiratory 21 18 Rate Blood Pressure 131/80 131/80 129/79 O2 Sat by Pulse 100 100 100 Oximetry 12/31/19 12/31/19 12/31/19 06:00 07:00 08:00 Temperature 98.2 F Pulse Rate 106 H 112 H 116 H Pulse Rate [ From Monitor] Respiratory 21 21 17 Rate Blood Pressure 133/84 136/81 144/88 O2 Sat by Pulse 99 100 100 Oximetry 12/31/19 12/31/19 12/31/19 08:05 09:00 10:00 Temperature Pulse Rate 106 H 112 H 124 H Pulse Rate [ From Monitor] Respiratory 18 15 10 L Rate Blood Pressure 133/84 143/87 146/93 O2 Sat by Pulse 99 100 99 Oximetry 12/31/19 12/31/19 12/31/19 11:00 11:29 12:00 Temperature 96.8 F L Pulse Rate 116 H 104 H Pulse Rate [ From Monitor] Respiratory 9 L 12 Rate Blood Pressure 137/69 133/84 O2 Sat by Pulse 100 99 Oximetry Constitutional: no acute distress, other (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, with midline tracheostomy and mild dys-synchrony) Eyes: non-icteric ENT: oropharynx moist, other (s/p trach) Neck: supple, no lymphadenopathy, no JVD Effort: mildly labored Ascultation: Bilateral: diminished breath sounds, rhonchi Percussion: Bilateral: not dull Cardiovascular: regular rate and rhythm (tachycardia), other (S1,S2) Gastrointestinal: normoactive bowel sounds, soft, non-tender, non-distended Integumentary: normal Extremities: no cyanosis, no edema, pulses normal, no ischemia or petechiae Neurologic: unable to assess, other (awake but not tracking voice ) Psychiatric: other (Psychiatric: Unable to assess) CBC and BMP: 12/30/19 01:06 12/30/19 01:06 ABG, PT/INR, D-dimer: ABG ABG pH 7.440 pH Units (7.350-7.450) 12/30/19 04:23 ABG pCO2 36.6 mm Hg 12/30/19 04:23 ABG pO2 89.9 mm Hg (80.0-90.0) 12/30/19 04:23 ABG O2 Saturation 97.3 % (95.0-99.0) 12/30/19 04:23 PT/INR, D-dimer PT 17.0 Sec. (12.2-14.9) H 11/23/19 03:47 INR 1.36 (0.87-1.13) H 11/23/19 03:47 Abnormal lab findings: Abnormal Labs 11/22/19 11/22/19 11/22/19 23:17 23:18 23:27 WBC 21.2 H RBC 3.59 L Hgb 9.8 L Hct MCH 27 L RDW 18.6 H Plt Count 454 H Lymph % (Auto) Placer % (Auto) Placer # Baso # Seg Neutrophils % Seg Neuts % (Manual) 86.0 H Lymphocytes % (Manual) 9.0 L Monocytes % (Manual) Seg Neutrophils # Seg Neutrophils # Man 18.2 H Lymphocytes # (Manual) Monocytes # (Manual) 1.1 H Eosinophils # (Manual) Basophils # (Manual) PT INR APTT ABG pH ABG pO2 ABG HCO3 ABG O2 Saturation ABG Base Excess ABG Hemoglobin Oxyhemoglobin Sodium Potassium Chloride Carbon Dioxide BUN Creatinine Glucose POC Glucose 53 L Lactic Acid Calcium Ionized Calcium Phosphorus Magnesium Total Bilirubin AST ALT Alkaline Phosphatase Ammonia Total Creatine Kinase CK-MB (CK-2) CK-MB (CK-2) Rel Index Total Protein Albumin Urine WBC (Auto) 40.0 H Vancomycin Trough Salicylates Acetaminophen Plasma/Serum Alcohol Crossmatch 11/22/19 11/22/19 11/22/19 23:27 23:27 23:27 WBC RBC Hgb Hct MCH RDW Plt Count Lymph % (Auto) Placer % (Auto) Placer # Baso # Seg Neutrophils % Seg Neuts % (Manual) Lymphocytes % (Manual) Monocytes % (Manual) Seg Neutrophils # Seg Neutrophils # Man Lymphocytes # (Manual) Monocytes # (Manual) Eosinophils # (Manual) Basophils # (Manual) PT INR APTT ABG pH ABG pO2 ABG HCO3 ABG O2 Saturation ABG Base Excess ABG Hemoglobin Oxyhemoglobin Sodium Potassium 2.4 L* Chloride 85.1 L Carbon Dioxide 19 L BUN Creatinine 0.5 L Glucose 261 H POC Glucose Lactic Acid Calcium Ionized Calcium Phosphorus Magnesium Total Bilirubin AST 609 H ALT 152 H Alkaline Phosphatase 160 H Ammonia 117.0 H Total Creatine Kinase 139 H CK-MB (CK-2) 8.3 H CK-MB (CK-2) Rel Index 5.9 H Total Protein Albumin 3.6 L Urine WBC (Auto) Vancomycin Trough Salicylates < 0.3 L Acetaminophen Plasma/Serum Alcohol Crossmatch 11/22/19 11/22/19 11/23/19 23:27 23:27 01:10 WBC RBC Hgb Hct MCH RDW Plt Count Lymph % (Auto) Placer % (Auto) Placer # Baso # Seg Neutrophils % Seg Neuts % (Manual) Lymphocytes % (Manual) Monocytes % (Manual) Seg Neutrophils # Seg Neutrophils # Man Lymphocytes # (Manual) Monocytes # (Manual) Eosinophils # (Manual) Basophils # (Manual) PT INR APTT ABG pH 7.273 L ABG pO2 209.7 H ABG HCO3 ABG O2 Saturation 99.2 H ABG Base Excess -3.9 L ABG Hemoglobin 10.6 L Oxyhemoglobin 93.9 L Sodium Potassium Chloride Carbon Dioxide BUN Creatinine Glucose POC Glucose Lactic Acid Calcium Ionized Calcium Phosphorus Magnesium Total Bilirubin AST ALT Alkaline Phosphatase Ammonia Total Creatine Kinase CK-MB (CK-2) CK-MB (CK-2) Rel Index Total Protein Albumin Urine WBC (Auto) Vancomycin Trough Salicylates Acetaminophen < 5.0 L Plasma/Serum Alcohol 0.08 H Crossmatch 11/23/19 11/23/19 11/23/19 01:19 01:19 03:47 WBC RBC Hgb Hct MCH RDW Plt Count Lymph % (Auto) Placer % (Auto) Placer # Baso # Seg Neutrophils % Seg Neuts % (Manual) Lymphocytes % (Manual) Monocytes % (Manual) Seg Neutrophils # Seg Neutrophils # Man Lymphocytes # (Manual) Monocytes # (Manual) Eosinophils # (Manual) Basophils # (Manual) PT 16.3 H INR 1.29 H APTT ABG pH ABG pO2 ABG HCO3 ABG O2 Saturation ABG Base Excess ABG Hemoglobin Oxyhemoglobin Sodium Potassium Chloride Carbon Dioxide BUN Creatinine Glucose POC Glucose Lactic Acid 2.10 H* 5.00 H* Calcium Ionized Calcium Phosphorus Magnesium Total Bilirubin AST ALT Alkaline Phosphatase Ammonia Total Creatine Kinase CK-MB (CK-2) CK-MB (CK-2) Rel Index Total Protein Albumin Urine WBC (Auto) Vancomycin Trough Salicylates Acetaminophen Plasma/Serum Alcohol Crossmatch 11/23/19 11/23/19 11/23/19 03:47 03:47 04:53 WBC RBC Hgb 9.4 L Hct MCH RDW Plt Count Lymph % (Auto) Placer % (Auto) Placer # Baso # Seg Neutrophils % Seg Neuts % (Manual) Lymphocytes % (Manual) Monocytes % (Manual) Seg Neutrophils # Seg Neutrophils # Man Lymphocytes # (Manual) Monocytes # (Manual) Eosinophils # (Manual) Basophils # (Manual) PT 17.0 H INR 1.36 H APTT 128.2 H* ABG pH ABG pO2 ABG HCO3 ABG O2 Saturation ABG Base Excess ABG Hemoglobin Oxyhemoglobin Sodium Potassium Chloride Carbon Dioxide 18 L BUN Creatinine 0.5 L Glucose 105 H POC Glucose Lactic Acid Calcium 8.3 L Ionized Calcium Phosphorus 2.40 L Magnesium Total Bilirubin 1.30 H AST 761 H ALT 158 H Alkaline Phosphatase 143 H Ammonia Total Creatine Kinase CK-MB (CK-2) CK-MB (CK-2) Rel Index Total Protein Albumin 2.8 L Urine WBC (Auto) Vancomycin Trough Salicylates Acetaminophen Plasma/Serum Alcohol Crossmatch 11/23/19 11/23/19 11/23/19 05:12 06:32 06:32 WBC 16.8 H RBC 3.31 L Hgb 8.9 L Hct 28.7 L MCH 27 L RDW 18.6 H Plt Count Lymph % (Auto) Placer % (Auto) Placer # Baso # Seg Neutrophils % Seg Neuts % (Manual) 94.0 H Lymphocytes % (Manual) 1.0 L Monocytes % (Manual) Seg Neutrophils # Seg Neutrophils # Man 15.8 H Lymphocytes # (Manual) 0.2 L Monocytes # (Manual) Eosinophils # (Manual) Basophils # (Manual) PT INR APTT ABG pH ABG pO2 ABG HCO3 ABG O2 Saturation ABG Base Excess -3.2 L ABG Hemoglobin 9.0 L Oxyhemoglobin 93.6 L Sodium Potassium Chloride Carbon Dioxide BUN Creatinine Glucose POC Glucose Lactic Acid Calcium Ionized Calcium 4.5 L Phosphorus Magnesium Total Bilirubin AST ALT Alkaline Phosphatase Ammonia Total Creatine Kinase CK-MB (CK-2) CK-MB (CK-2) Rel Index Total Protein Albumin Urine WBC (Auto) Vancomycin Trough Salicylates Acetaminophen Plasma/Serum Alcohol Crossmatch 11/23/19 11/24/19 11/24/19 06:32 04:35 04:35 WBC RBC Hgb Hct MCH RDW Plt Count Lymph % (Auto) Placer % (Auto) Placer # Baso # Seg Neutrophils % Seg Neuts % (Manual) Lymphocytes % (Manual) Monocytes % (Manual) Seg Neutrophils # Seg Neutrophils # Man Lymphocytes # (Manual) Monocytes # (Manual) Eosinophils # (Manual) Basophils # (Manual) PT INR APTT ABG pH ABG pO2 ABG HCO3 ABG O2 Saturation ABG Base Excess ABG Hemoglobin Oxyhemoglobin Sodium Potassium Chloride Carbon Dioxide BUN Creatinine Glucose POC Glucose Lactic Acid 3.30 H* Calcium Ionized Calcium Phosphorus Magnesium 1.40 L Total Bilirubin AST ALT Alkaline Phosphatase Ammonia 98.0 H Total Creatine Kinase CK-MB (CK-2) CK-MB (CK-2) Rel Index Total Protein Albumin Urine WBC (Auto) Vancomycin Trough Salicylates Acetaminophen Plasma/Serum Alcohol Crossmatch 11/24/19 11/25/19 11/25/19 05:22 04:34 05:05 WBC 17.3 H RBC 2.88 L Hgb 7.8 L Hct 24.6 L MCH 27 L RDW 18.5 H Plt Count Lymph % (Auto) 7.7 L Placer % (Auto) 9.7 H Placer # 1.7 H Baso # Seg Neutrophils % 82.2 H Seg Neuts % (Manual) Lymphocytes % (Manual) Monocytes % (Manual) Seg Neutrophils # 14.2 H Seg Neutrophils # Man Lymphocytes # (Manual) Monocytes # (Manual) Eosinophils # (Manual) Basophils # (Manual) PT INR APTT ABG pH 7.475 H ABG pO2 ABG HCO3 29.4 H 32.3 H ABG O2 Saturation ABG Base Excess 5.4 H 6.9 H ABG Hemoglobin 9.0 L 10.6 L Oxyhemoglobin 94.3 L Sodium Potassium Chloride Carbon Dioxide BUN Creatinine Glucose POC Glucose Lactic Acid Calcium Ionized Calcium Phosphorus Magnesium Total Bilirubin AST ALT Alkaline Phosphatase Ammonia Total Creatine Kinase CK-MB (CK-2) CK-MB (CK-2) Rel Index Total Protein Albumin Urine WBC (Auto) Vancomycin Trough Salicylates Acetaminophen Plasma/Serum Alcohol Crossmatch 11/25/19 11/25/19 11/26/19 05:05 22:46 03:31 WBC RBC Hgb Hct MCH RDW Plt Count Lymph % (Auto) Placer % (Auto) Placer # Baso # Seg Neutrophils % Seg Neuts % (Manual) Lymphocytes % (Manual) Monocytes % (Manual) Seg Neutrophils # Seg Neutrophils # Man Lymphocytes # (Manual) Monocytes # (Manual) Eosinophils # (Manual) Basophils # (Manual) PT INR APTT ABG pH 7.459 H ABG pO2 ABG HCO3 34.2 H ABG O2 Saturation ABG Base Excess 9.4 H ABG Hemoglobin 7.6 L Oxyhemoglobin 94.8 L Sodium 152 H D 147 H Potassium 2.3 L* D 2.8 L* D Chloride 107.8 H Carbon Dioxide 31 H D 33 H BUN Creatinine 0.6 L 0.6 L Glucose 148 H 177 H POC Glucose Lactic Acid Calcium Ionized Calcium Phosphorus Magnesium Total Bilirubin AST 105 H ALT 71 H Alkaline Phosphatase 155 H Ammonia Total Creatine Kinase CK-MB (CK-2) CK-MB (CK-2) Rel Index Total Protein 5.2 L D Albumin 2.9 L Urine WBC (Auto) Vancomycin Trough Salicylates Acetaminophen Plasma/Serum Alcohol Crossmatch 11/26/19 11/26/19 11/27/19 08:24 08:24 04:20 WBC 12.0 H RBC 3.00 L Hgb 8.0 L 9.3 L Hct 25.9 L 29.7 L MCH 27 L RDW 18.5 H Plt Count Lymph % (Auto) Placer % (Auto) Placer # Baso # Seg Neutrophils % Seg Neuts % (Manual) 89.0 H Lymphocytes % (Manual) 4.0 L Monocytes % (Manual) Seg Neutrophils # Seg Neutrophils # Man 10.7 H Lymphocytes # (Manual) 0.5 L Monocytes # (Manual) Eosinophils # (Manual) Basophils # (Manual) PT INR APTT ABG pH ABG pO2 ABG HCO3 ABG O2 Saturation ABG Base Excess ABG Hemoglobin Oxyhemoglobin Sodium 146 H Potassium 3.4 L D Chloride Carbon Dioxide BUN Creatinine 0.5 L Glucose 165 H POC Glucose Lactic Acid Calcium Ionized Calcium Phosphorus Magnesium Total Bilirubin AST 57 H ALT Alkaline Phosphatase 166 H Ammonia Total Creatine Kinase CK-MB (CK-2) CK-MB (CK-2) Rel Index Total Protein Albumin 2.9 L Urine WBC (Auto) Vancomycin Trough Salicylates Acetaminophen Plasma/Serum Alcohol Crossmatch 11/27/19 11/27/19 11/27/19 04:28 04:28 04:42 WBC RBC Hgb Hct MCH RDW Plt Count Lymph % (Auto) Placer % (Auto) Placer # Baso # Seg Neutrophils % Seg Neuts % (Manual) Lymphocytes % (Manual) Monocytes % (Manual) Seg Neutrophils # Seg Neutrophils # Man Lymphocytes # (Manual) Monocytes # (Manual) Eosinophils # (Manual) Basophils # (Manual) PT INR APTT ABG pH 7.470 H ABG pO2 74.0 L ABG HCO3 33.8 H ABG O2 Saturation ABG Base Excess 9.1 H ABG Hemoglobin 8.7 L Oxyhemoglobin 94.7 L Sodium 146 H Potassium 2.9 L* Chloride Carbon Dioxide BUN 25 H Creatinine Glucose 213 H POC Glucose Lactic Acid Calcium Ionized Calcium Phosphorus 1.00 L Magnesium Total Bilirubin AST ALT Alkaline Phosphatase Ammonia Total Creatine Kinase CK-MB (CK-2) CK-MB (CK-2) Rel Index Total Protein Albumin Urine WBC (Auto) Vancomycin Trough Salicylates Acetaminophen Plasma/Serum Alcohol Crossmatch 11/27/19 11/27/19 11/27/19 05:37 12:20 15:46 WBC RBC Hgb Hct MCH RDW Plt Count Lymph % (Auto) Placer % (Auto) Placer # Baso # Seg Neutrophils % Seg Neuts % (Manual) Lymphocytes % (Manual) Monocytes % (Manual) Seg Neutrophils # Seg Neutrophils # Man Lymphocytes # (Manual) Monocytes # (Manual) Eosinophils # (Manual) Basophils # (Manual) PT INR APTT ABG pH ABG pO2 ABG HCO3 ABG O2 Saturation ABG Base Excess ABG Hemoglobin Oxyhemoglobin Sodium 146 H Potassium 3.5 L D Chloride Carbon Dioxide BUN 24 H Creatinine 0.6 L Glucose 187 H POC Glucose 117 H 220 H Lactic Acid Calcium Ionized Calcium Phosphorus Magnesium Total Bilirubin AST ALT Alkaline Phosphatase Ammonia Total Creatine Kinase CK-MB (CK-2) CK-MB (CK-2) Rel Index Total Protein Albumin Urine WBC (Auto) Vancomycin Trough Salicylates Acetaminophen Plasma/Serum Alcohol Crossmatch 11/27/19 11/28/19 11/28/19 17:28 05:00 05:02 WBC RBC Hgb Hct MCH RDW Plt Count Lymph % (Auto) Placer % (Auto) Placer # Baso # Seg Neutrophils % Seg Neuts % (Manual) Lymphocytes % (Manual) Monocytes % (Manual) Seg Neutrophils # Seg Neutrophils # Man Lymphocytes # (Manual) Monocytes # (Manual) Eosinophils # (Manual) Basophils # (Manual) PT INR APTT ABG pH ABG pO2 72.4 L ABG HCO3 33.6 H ABG O2 Saturation 94.1 L ABG Base Excess 7.3 H ABG Hemoglobin Oxyhemoglobin 91.8 L Sodium 146 H Potassium 3.3 L Chloride Carbon Dioxide BUN 25 H Creatinine 0.6 L Glucose 176 H POC Glucose 198 H Lactic Acid Calcium Ionized Calcium Phosphorus Magnesium Total Bilirubin AST ALT Alkaline Phosphatase Ammonia Total Creatine Kinase CK-MB (CK-2) CK-MB (CK-2) Rel Index Total Protein Albumin Urine WBC (Auto) Vancomycin Trough Salicylates Acetaminophen Plasma/Serum Alcohol Crossmatch 11/28/19 11/28/19 11/29/19 05:02 18:55 10:43 WBC 15.2 H 19.0 H RBC 3.06 L 3.01 L Hgb 8.3 L 8.3 L Hct 27.0 L 26.4 L MCH 27 L RDW 19.0 H 19.7 H Plt Count 479 H 611 H Lymph % (Auto) Placer % (Auto) Placer # Baso # Seg Neutrophils % Seg Neuts % (Manual) 92.0 H Lymphocytes % (Manual) 2.0 L Monocytes % (Manual) Seg Neutrophils # Seg Neutrophils # Man 14.0 H Lymphocytes # (Manual) 0.3 L Monocytes # (Manual) Eosinophils # (Manual) Basophils # (Manual) PT INR APTT ABG pH ABG pO2 ABG HCO3 ABG O2 Saturation ABG Base Excess ABG Hemoglobin Oxyhemoglobin Sodium Potassium Chloride Carbon Dioxide BUN Creatinine Glucose POC Glucose 138 H Lactic Acid Calcium Ionized Calcium Phosphorus Magnesium Total Bilirubin AST ALT Alkaline Phosphatase Ammonia Total Creatine Kinase CK-MB (CK-2) CK-MB (CK-2) Rel Index Total Protein Albumin Urine WBC (Auto) Vancomycin Trough Salicylates Acetaminophen Plasma/Serum Alcohol Crossmatch 11/29/19 11/29/19 11/29/19 10:43 12:27 19:25 WBC RBC Hgb Hct MCH RDW Plt Count Lymph % (Auto) Placer % (Auto) Placer # Baso # Seg Neutrophils % Seg Neuts % (Manual) Lymphocytes % (Manual) Monocytes % (Manual) Seg Neutrophils # Seg Neutrophils # Man Lymphocytes # (Manual) Monocytes # (Manual) Eosinophils # (Manual) Basophils # (Manual) PT INR APTT ABG pH ABG pO2 ABG HCO3 ABG O2 Saturation ABG Base Excess ABG Hemoglobin Oxyhemoglobin Sodium Potassium 2.8 L* Chloride Carbon Dioxide BUN 20 H Creatinine 0.5 L Glucose 121 H POC Glucose 128 H 120 H Lactic Acid Calcium Ionized Calcium Phosphorus Magnesium Total Bilirubin AST ALT Alkaline Phosphatase Ammonia Total Creatine Kinase CK-MB (CK-2) CK-MB (CK-2) Rel Index Total Protein Albumin Urine WBC (Auto) Vancomycin Trough Salicylates Acetaminophen Plasma/Serum Alcohol Crossmatch 11/29/19 11/30/19 11/30/19 23:46 04:10 05:02 WBC RBC Hgb Hct MCH RDW Plt Count Lymph % (Auto) Placer % (Auto) Placer # Baso # Seg Neutrophils % Seg Neuts % (Manual) Lymphocytes % (Manual) Monocytes % (Manual) Seg Neutrophils # Seg Neutrophils # Man Lymphocytes # (Manual) Monocytes # (Manual) Eosinophils # (Manual) Basophils # (Manual) PT INR APTT ABG pH ABG pO2 76.3 L ABG HCO3 32.5 H ABG O2 Saturation ABG Base Excess 6.9 H ABG Hemoglobin 8.0 L Oxyhemoglobin 92.6 L Sodium Potassium Chloride Carbon Dioxide BUN Creatinine Glucose POC Glucose 116 H 128 H Lactic Acid Calcium Ionized Calcium Phosphorus Magnesium Total Bilirubin AST ALT Alkaline Phosphatase Ammonia Total Creatine Kinase CK-MB (CK-2) CK-MB (CK-2) Rel Index Total Protein Albumin Urine WBC (Auto) Vancomycin Trough Salicylates Acetaminophen Plasma/Serum Alcohol Crossmatch 11/30/19 11/30/19 11/30/19 05:25 05:25 12:59 WBC 18.4 H RBC 3.10 L Hgb 8.5 L Hct 27.5 L MCH 27 L RDW 20.9 H Plt Count 691 H Lymph % (Auto) 7.1 L Placer % (Auto) 7.7 H Placer # 1.4 H Baso # Seg Neutrophils % 83.4 H Seg Neuts % (Manual) Lymphocytes % (Manual) Monocytes % (Manual) Seg Neutrophils # 15.4 H Seg Neutrophils # Man Lymphocytes # (Manual) Monocytes # (Manual) Eosinophils # (Manual) Basophils # (Manual) PT INR APTT ABG pH ABG pO2 ABG HCO3 ABG O2 Saturation ABG Base Excess ABG Hemoglobin Oxyhemoglobin Sodium 146 H Potassium Chloride 107.2 H Carbon Dioxide BUN Creatinine 0.5 L Glucose 132 H POC Glucose 124 H Lactic Acid Calcium Ionized Calcium Phosphorus Magnesium Total Bilirubin AST 246 H ALT 274 H Alkaline Phosphatase 203 H Ammonia Total Creatine Kinase CK-MB (CK-2) CK-MB (CK-2) Rel Index Total Protein 5.4 L Albumin 2.9 L Urine WBC (Auto) Vancomycin Trough Salicylates Acetaminophen Plasma/Serum Alcohol Crossmatch 11/30/19 12/01/19 12/01/19 17:53 00:05 05:10 WBC RBC Hgb Hct MCH RDW Plt Count Lymph % (Auto) Placer % (Auto) Placer # Baso # Seg Neutrophils % Seg Neuts % (Manual) Lymphocytes % (Manual) Monocytes % (Manual) Seg Neutrophils # Seg Neutrophils # Man Lymphocytes # (Manual) Monocytes # (Manual) Eosinophils # (Manual) Basophils # (Manual) PT INR APTT ABG pH ABG pO2 ABG HCO3 ABG O2 Saturation ABG Base Excess ABG Hemoglobin Oxyhemoglobin Sodium Potassium Chloride Carbon Dioxide BUN Creatinine Glucose POC Glucose 113 H 143 H 145 H Lactic Acid Calcium Ionized Calcium Phosphorus Magnesium Total Bilirubin AST ALT Alkaline Phosphatase Ammonia Total Creatine Kinase CK-MB (CK-2) CK-MB (CK-2) Rel Index Total Protein Albumin Urine WBC (Auto) Vancomycin Trough Salicylates Acetaminophen Plasma/Serum Alcohol Crossmatch 12/01/19 12/01/19 12/01/19 05:33 08:23 08:23 WBC 22.7 H RBC 2.88 L Hgb 7.9 L Hct 25.2 L MCH 27 L RDW 21.0 H Plt Count 732 H Lymph % (Auto) Placer % (Auto) Placer # Baso # Seg Neutrophils % Seg Neuts % (Manual) 91.0 H Lymphocytes % (Manual) 3.0 L Monocytes % (Manual) Seg Neutrophils # Seg Neutrophils # Man 20.7 H Lymphocytes # (Manual) 0.7 L Monocytes # (Manual) 1.1 H Eosinophils # (Manual) Basophils # (Manual) PT INR APTT ABG pH ABG pO2 68.6 L ABG HCO3 34.1 H ABG O2 Saturation ABG Base Excess 9.0 H ABG Hemoglobin 6.5 L Oxyhemoglobin 94.7 L Sodium Potassium Chloride Carbon Dioxide BUN Creatinine 0.5 L Glucose 125 H POC Glucose Lactic Acid Calcium Ionized Calcium Phosphorus Magnesium Total Bilirubin AST ALT Alkaline Phosphatase Ammonia Total Creatine Kinase CK-MB (CK-2) CK-MB (CK-2) Rel Index Total Protein Albumin Urine WBC (Auto) Vancomycin Trough Salicylates Acetaminophen Plasma/Serum Alcohol Crossmatch 12/01/19 12/01/19 12/01/19 13:21 17:54 20:59 WBC RBC Hgb Hct MCH RDW Plt Count Lymph % (Auto) Placer % (Auto) Placer # Baso # Seg Neutrophils % Seg Neuts % (Manual) Lymphocytes % (Manual) Monocytes % (Manual) Seg Neutrophils # Seg Neutrophils # Man Lymphocytes # (Manual) Monocytes # (Manual) Eosinophils # (Manual) Basophils # (Manual) PT INR APTT ABG pH ABG pO2 78.3 L ABG HCO3 33.8 H ABG O2 Saturation 94.9 L ABG Base Excess 7.9 H ABG Hemoglobin 11.5 L Oxyhemoglobin 92.3 L Sodium Potassium Chloride Carbon Dioxide BUN Creatinine Glucose POC Glucose 111 H 115 H Lactic Acid Calcium Ionized Calcium Phosphorus Magnesium Total Bilirubin AST ALT Alkaline Phosphatase Ammonia Total Creatine Kinase CK-MB (CK-2) CK-MB (CK-2) Rel Index Total Protein Albumin Urine WBC (Auto) Vancomycin Trough Salicylates Acetaminophen Plasma/Serum Alcohol Crossmatch 12/02/19 12/03/19 12/04/19 12:55 20:00 04:26 WBC 15.2 H RBC 2.69 L Hgb 7.4 L Hct 23.6 L MCH 27 L RDW 19.9 H Plt Count 838 H Lymph % (Auto) Placer % (Auto) Placer # Baso # Seg Neutrophils % Seg Neuts % (Manual) Lymphocytes % (Manual) Monocytes % (Manual) Seg Neutrophils # Seg Neutrophils # Man Lymphocytes # (Manual) Monocytes # (Manual) Eosinophils # (Manual) Basophils # (Manual) PT INR APTT ABG pH ABG pO2 68.3 L ABG HCO3 33.5 H ABG O2 Saturation 93.5 L ABG Base Excess 8.4 H ABG Hemoglobin 7.3 L Oxyhemoglobin 90.9 L Sodium Potassium Chloride Carbon Dioxide BUN Creatinine Glucose POC Glucose 107 H Lactic Acid Calcium Ionized Calcium Phosphorus Magnesium Total Bilirubin AST ALT Alkaline Phosphatase Ammonia Total Creatine Kinase CK-MB (CK-2) CK-MB (CK-2) Rel Index Total Protein Albumin Urine WBC (Auto) Vancomycin Trough Salicylates Acetaminophen Plasma/Serum Alcohol Crossmatch 12/04/19 12/04/19 12/04/19 04:26 07:45 12:02 WBC 15.9 H RBC 2.88 L Hgb 7.9 L Hct 25.1 L MCH RDW 20.4 H Plt Count 839 H Lymph % (Auto) 11.3 L Placer % (Auto) 15.2 H Placer # 2.4 H Baso # Seg Neutrophils % 72.4 H Seg Neuts % (Manual) Lymphocytes % (Manual) Monocytes % (Manual) Seg Neutrophils # 11.5 H Seg Neutrophils # Man Lymphocytes # (Manual) Monocytes # (Manual) Eosinophils # (Manual) Basophils # (Manual) PT INR APTT ABG pH ABG pO2 ABG HCO3 ABG O2 Saturation ABG Base Excess ABG Hemoglobin Oxyhemoglobin Sodium Potassium Chloride 96.5 L Carbon Dioxide BUN 21 H Creatinine 0.6 L Glucose 107 H POC Glucose 138 H Lactic Acid Calcium Ionized Calcium Phosphorus Magnesium Total Bilirubin AST ALT Alkaline Phosphatase Ammonia Total Creatine Kinase CK-MB (CK-2) CK-MB (CK-2) Rel Index Total Protein Albumin Urine WBC (Auto) Vancomycin Trough Salicylates Acetaminophen Plasma/Serum Alcohol Crossmatch 12/04/19 12/05/19 12/05/19 18:16 11:55 18:36 WBC RBC Hgb Hct MCH RDW Plt Count Lymph % (Auto) Placer % (Auto) Placer # Baso # Seg Neutrophils % Seg Neuts % (Manual) Lymphocytes % (Manual) Monocytes % (Manual) Seg Neutrophils # Seg Neutrophils # Man Lymphocytes # (Manual) Monocytes # (Manual) Eosinophils # (Manual) Basophils # (Manual) PT INR APTT ABG pH ABG pO2 ABG HCO3 ABG O2 Saturation ABG Base Excess ABG Hemoglobin Oxyhemoglobin Sodium Potassium Chloride Carbon Dioxide BUN Creatinine Glucose POC Glucose 135 H 125 H 135 H Lactic Acid Calcium Ionized Calcium Phosphorus Magnesium Total Bilirubin AST ALT Alkaline Phosphatase Ammonia Total Creatine Kinase CK-MB (CK-2) CK-MB (CK-2) Rel Index Total Protein Albumin Urine WBC (Auto) Vancomycin Trough Salicylates Acetaminophen Plasma/Serum Alcohol Crossmatch 12/05/19 12/06/19 12/06/19 23:30 04:14 05:43 WBC RBC Hgb Hct MCH RDW Plt Count Lymph % (Auto) Placer % (Auto) Placer # Baso # Seg Neutrophils % Seg Neuts % (Manual) Lymphocytes % (Manual) Monocytes % (Manual) Seg Neutrophils # Seg Neutrophils # Man Lymphocytes # (Manual) Monocytes # (Manual) Eosinophils # (Manual) Basophils # (Manual) PT INR APTT ABG pH ABG pO2 ABG HCO3 ABG O2 Saturation ABG Base Excess ABG Hemoglobin Oxyhemoglobin Sodium Potassium 5.6 H Chloride 95.0 L Carbon Dioxide BUN 48 H Creatinine 1.3 H D Glucose POC Glucose 126 H 121 H Lactic Acid Calcium Ionized Calcium Phosphorus Magnesium Total Bilirubin AST 89 H ALT 98 H Alkaline Phosphatase 476 H Ammonia Total Creatine Kinase CK-MB (CK-2) CK-MB (CK-2) Rel Index Total Protein Albumin 2.8 L Urine WBC (Auto) Vancomycin Trough Salicylates Acetaminophen Plasma/Serum Alcohol Crossmatch 12/06/19 12/06/19 12/07/19 10:39 14:34 00:19 WBC 17.3 H RBC 2.60 L Hgb 7.1 L Hct 22.7 L MCH 27 L RDW 20.1 H Plt Count 832 H Lymph % (Auto) Placer % (Auto) Placer # Baso # Seg Neutrophils % Seg Neuts % (Manual) Lymphocytes % (Manual) Monocytes % (Manual) Seg Neutrophils # Seg Neutrophils # Man Lymphocytes # (Manual) Monocytes # (Manual) Eosinophils # (Manual) Basophils # (Manual) PT INR APTT ABG pH ABG pO2 ABG HCO3 ABG O2 Saturation ABG Base Excess ABG Hemoglobin Oxyhemoglobin Sodium Potassium Chloride Carbon Dioxide BUN Creatinine Glucose POC Glucose 128 H 136 H Lactic Acid Calcium Ionized Calcium Phosphorus Magnesium Total Bilirubin AST ALT Alkaline Phosphatase Ammonia Total Creatine Kinase CK-MB (CK-2) CK-MB (CK-2) Rel Index Total Protein Albumin Urine WBC (Auto) Vancomycin Trough Salicylates Acetaminophen Plasma/Serum Alcohol Crossmatch 12/07/19 12/07/19 12/07/19 03:44 03:44 05:53 WBC 16.2 H RBC 2.56 L Hgb 7.1 L Hct 22.3 L MCH RDW 19.4 H Plt Count 782 H Lymph % (Auto) Placer % (Auto) Placer # Baso # Seg Neutrophils % Seg Neuts % (Manual) Lymphocytes % (Manual) Monocytes % (Manual) Seg Neutrophils # Seg Neutrophils # Man Lymphocytes # (Manual) Monocytes # (Manual) Eosinophils # (Manual) Basophils # (Manual) PT INR APTT ABG pH ABG pO2 ABG HCO3 ABG O2 Saturation ABG Base Excess ABG Hemoglobin Oxyhemoglobin Sodium Potassium Chloride 95.6 L Carbon Dioxide BUN 56 H Creatinine 1.4 H Glucose 120 H POC Glucose 128 H Lactic Acid Calcium 10.3 H Ionized Calcium Phosphorus Magnesium Total Bilirubin AST ALT Alkaline Phosphatase Ammonia Total Creatine Kinase CK-MB (CK-2) CK-MB (CK-2) Rel Index Total Protein Albumin Urine WBC (Auto) Vancomycin Trough Salicylates Acetaminophen Plasma/Serum Alcohol Crossmatch 12/07/19 12/07/19 12/08/19 12:54 23:47 00:20 WBC RBC Hgb Hct MCH RDW Plt Count Lymph % (Auto) Placer % (Auto) Placer # Baso # Seg Neutrophils % Seg Neuts % (Manual) Lymphocytes % (Manual) Monocytes % (Manual) Seg Neutrophils # Seg Neutrophils # Man Lymphocytes # (Manual) Monocytes # (Manual) Eosinophils # (Manual) Basophils # (Manual) PT INR APTT ABG pH ABG pO2 ABG HCO3 ABG O2 Saturation ABG Base Excess ABG Hemoglobin Oxyhemoglobin Sodium Potassium Chloride Carbon Dioxide BUN Creatinine Glucose POC Glucose 128 H 130 H 124 H Lactic Acid Calcium Ionized Calcium Phosphorus Magnesium Total Bilirubin AST ALT Alkaline Phosphatase Ammonia Total Creatine Kinase CK-MB (CK-2) CK-MB (CK-2) Rel Index Total Protein Albumin Urine WBC (Auto) Vancomycin Trough Salicylates Acetaminophen Plasma/Serum Alcohol Crossmatch 12/08/19 12/08/19 12/08/19 06:38 12:04 18:26 WBC RBC Hgb Hct MCH RDW Plt Count Lymph % (Auto) Placer % (Auto) Placer # Baso # Seg Neutrophils % Seg Neuts % (Manual) Lymphocytes % (Manual) Monocytes % (Manual) Seg Neutrophils # Seg Neutrophils # Man Lymphocytes # (Manual) Monocytes # (Manual) Eosinophils # (Manual) Basophils # (Manual) PT INR APTT ABG pH ABG pO2 ABG HCO3 ABG O2 Saturation ABG Base Excess ABG Hemoglobin Oxyhemoglobin Sodium Potassium Chloride Carbon Dioxide BUN Creatinine Glucose POC Glucose 137 H 129 H 150 H Lactic Acid Calcium Ionized Calcium Phosphorus Magnesium Total Bilirubin AST ALT Alkaline Phosphatase Ammonia Total Creatine Kinase CK-MB (CK-2) CK-MB (CK-2) Rel Index Total Protein Albumin Urine WBC (Auto) Vancomycin Trough Salicylates Acetaminophen Plasma/Serum Alcohol Crossmatch 12/09/19 12/09/19 12/09/19 00:56 05:34 06:13 WBC RBC Hgb Hct MCH RDW Plt Count Lymph % (Auto) Placer % (Auto) Placer # Baso # Seg Neutrophils % Seg Neuts % (Manual) Lymphocytes % (Manual) Monocytes % (Manual) Seg Neutrophils # Seg Neutrophils # Man Lymphocytes # (Manual) Monocytes # (Manual) Eosinophils # (Manual) Basophils # (Manual) PT INR APTT ABG pH ABG pO2 ABG HCO3 ABG O2 Saturation ABG Base Excess ABG Hemoglobin Oxyhemoglobin Sodium 146 H Potassium Chloride Carbon Dioxide BUN 66 H Creatinine 1.9 H Glucose 116 H POC Glucose 130 H 130 H Lactic Acid Calcium Ionized Calcium Phosphorus Magnesium Total Bilirubin AST ALT Alkaline Phosphatase Ammonia Total Creatine Kinase CK-MB (CK-2) CK-MB (CK-2) Rel Index Total Protein Albumin Urine WBC (Auto) Vancomycin Trough Salicylates Acetaminophen Plasma/Serum Alcohol Crossmatch 12/09/19 12/09/19 12/10/19 11:52 17:50 00:14 WBC RBC Hgb Hct MCH RDW Plt Count Lymph % (Auto) Placer % (Auto) Placer # Baso # Seg Neutrophils % Seg Neuts % (Manual) Lymphocytes % (Manual) Monocytes % (Manual) Seg Neutrophils # Seg Neutrophils # Man Lymphocytes # (Manual) Monocytes # (Manual) Eosinophils # (Manual) Basophils # (Manual) PT INR APTT ABG pH ABG pO2 ABG HCO3 ABG O2 Saturation ABG Base Excess ABG Hemoglobin Oxyhemoglobin Sodium Potassium Chloride Carbon Dioxide BUN Creatinine Glucose POC Glucose 135 H 120 H 116 H Lactic Acid Calcium Ionized Calcium Phosphorus Magnesium Total Bilirubin AST ALT Alkaline Phosphatase Ammonia Total Creatine Kinase CK-MB (CK-2) CK-MB (CK-2) Rel Index Total Protein Albumin Urine WBC (Auto) Vancomycin Trough Salicylates Acetaminophen Plasma/Serum Alcohol Crossmatch 12/10/19 12/10/19 12/10/19 05:38 11:38 17:34 WBC RBC Hgb Hct MCH RDW Plt Count Lymph % (Auto) Placer % (Auto) Placer # Baso # Seg Neutrophils % Seg Neuts % (Manual) Lymphocytes % (Manual) Monocytes % (Manual) Seg Neutrophils # Seg Neutrophils # Man Lymphocytes # (Manual) Monocytes # (Manual) Eosinophils # (Manual) Basophils # (Manual) PT INR APTT ABG pH ABG pO2 ABG HCO3 ABG O2 Saturation ABG Base Excess ABG Hemoglobin Oxyhemoglobin Sodium Potassium Chloride Carbon Dioxide BUN Creatinine Glucose POC Glucose 115 H 112 H 130 H Lactic Acid Calcium Ionized Calcium Phosphorus Magnesium Total Bilirubin AST ALT Alkaline Phosphatase Ammonia Total Creatine Kinase CK-MB (CK-2) CK-MB (CK-2) Rel Index Total Protein Albumin Urine WBC (Auto) Vancomycin Trough Salicylates Acetaminophen Plasma/Serum Alcohol Crossmatch 12/11/19 12/11/19 12/11/19 00:20 05:31 12:22 WBC RBC Hgb Hct MCH RDW Plt Count Lymph % (Auto) Placer % (Auto) Placer # Baso # Seg Neutrophils % Seg Neuts % (Manual) Lymphocytes % (Manual) Monocytes % (Manual) Seg Neutrophils # Seg Neutrophils # Man Lymphocytes # (Manual) Monocytes # (Manual) Eosinophils # (Manual) Basophils # (Manual) PT INR APTT ABG pH ABG pO2 ABG HCO3 ABG O2 Saturation ABG Base Excess ABG Hemoglobin Oxyhemoglobin Sodium Potassium Chloride Carbon Dioxide BUN Creatinine Glucose POC Glucose 124 H 132 H 128 H Lactic Acid Calcium Ionized Calcium Phosphorus Magnesium Total Bilirubin AST ALT Alkaline Phosphatase Ammonia Total Creatine Kinase CK-MB (CK-2) CK-MB (CK-2) Rel Index Total Protein Albumin Urine WBC (Auto) Vancomycin Trough Salicylates Acetaminophen Plasma/Serum Alcohol Crossmatch 12/11/19 12/11/19 12/12/19 18:04 23:42 03:51 WBC RBC Hgb Hct MCH RDW Plt Count Lymph % (Auto) Placer % (Auto) Placer # Baso # Seg Neutrophils % Seg Neuts % (Manual) Lymphocytes % (Manual) Monocytes % (Manual) Seg Neutrophils # Seg Neutrophils # Man Lymphocytes # (Manual) Monocytes # (Manual) Eosinophils # (Manual) Basophils # (Manual) PT INR APTT ABG pH ABG pO2 ABG HCO3 ABG O2 Saturation ABG Base Excess ABG Hemoglobin Oxyhemoglobin Sodium 149 H Potassium Chloride Carbon Dioxide 20 L D BUN 77 H Creatinine 2.8 H Glucose POC Glucose 133 H 154 H Lactic Acid Calcium Ionized Calcium Phosphorus Magnesium Total Bilirubin AST ALT Alkaline Phosphatase Ammonia Total Creatine Kinase CK-MB (CK-2) CK-MB (CK-2) Rel Index Total Protein Albumin Urine WBC (Auto) Vancomycin Trough Salicylates Acetaminophen Plasma/Serum Alcohol Crossmatch 12/12/19 12/12/19 12/12/19 05:18 05:26 10:30 WBC 18.0 H RBC 2.51 L Hgb 6.8 L Hct 22.0 L MCH 27 L RDW 19.9 H Plt Count 582 H Lymph % (Auto) Placer % (Auto) Placer # Baso # Seg Neutrophils % Seg Neuts % (Manual) Lymphocytes % (Manual) Monocytes % (Manual) Seg Neutrophils # Seg Neutrophils # Man Lymphocytes # (Manual) Monocytes # (Manual) Eosinophils # (Manual) Basophils # (Manual) PT INR APTT ABG pH ABG pO2 ABG HCO3 ABG O2 Saturation ABG Base Excess ABG Hemoglobin Oxyhemoglobin Sodium Potassium Chloride Carbon Dioxide BUN Creatinine Glucose POC Glucose 135 H Lactic Acid Calcium Ionized Calcium Phosphorus Magnesium Total Bilirubin AST ALT Alkaline Phosphatase Ammonia Total Creatine Kinase CK-MB (CK-2) CK-MB (CK-2) Rel Index Total Protein Albumin Urine WBC (Auto) Vancomycin Trough Salicylates Acetaminophen Plasma/Serum Alcohol Crossmatch See Detail 12/12/19 12/12/19 12/12/19 11:44 18:10 23:21 WBC RBC Hgb Hct MCH RDW Plt Count Lymph % (Auto) Placer % (Auto) Placer # Baso # Seg Neutrophils % Seg Neuts % (Manual) Lymphocytes % (Manual) Monocytes % (Manual) Seg Neutrophils # Seg Neutrophils # Man Lymphocytes # (Manual) Monocytes # (Manual) Eosinophils # (Manual) Basophils # (Manual) PT INR APTT ABG pH ABG pO2 ABG HCO3 ABG O2 Saturation ABG Base Excess ABG Hemoglobin Oxyhemoglobin Sodium Potassium Chloride Carbon Dioxide BUN Creatinine Glucose POC Glucose 108 H 107 H 126 H Lactic Acid Calcium Ionized Calcium Phosphorus Magnesium Total Bilirubin AST ALT Alkaline Phosphatase Ammonia Total Creatine Kinase CK-MB (CK-2) CK-MB (CK-2) Rel Index Total Protein Albumin Urine WBC (Auto) Vancomycin Trough Salicylates Acetaminophen Plasma/Serum Alcohol Crossmatch 12/13/19 12/13/19 12/13/19 05:41 07:48 07:48 WBC 38.3 H RBC 2.37 L Hgb 6.3 L Hct 20.9 L MCH 27 L RDW 20.2 H Plt Count 546 H Lymph % (Auto) Placer % (Auto) Placer # Baso # Seg Neutrophils % Seg Neuts % (Manual) 93.0 H Lymphocytes % (Manual) 1.0 L Monocytes % (Manual) Seg Neutrophils # Seg Neutrophils # Man 35.6 H Lymphocytes # (Manual) 0.4 L Monocytes # (Manual) Eosinophils # (Manual) Basophils # (Manual) 0.4 H PT INR APTT ABG pH ABG pO2 ABG HCO3 ABG O2 Saturation ABG Base Excess ABG Hemoglobin Oxyhemoglobin Sodium 152 H Potassium 3.1 L D Chloride 111.9 H Carbon Dioxide 21 L BUN 53 H Creatinine 1.9 H Glucose 141 H POC Glucose 128 H Lactic Acid Calcium Ionized Calcium Phosphorus Magnesium Total Bilirubin AST ALT Alkaline Phosphatase 316 H Ammonia Total Creatine Kinase CK-MB (CK-2) CK-MB (CK-2) Rel Index Total Protein Albumin 2.4 L Urine WBC (Auto) Vancomycin Trough Salicylates Acetaminophen Plasma/Serum Alcohol Crossmatch 12/13/19 12/13/19 12/14/19 18:17 23:19 05:36 WBC RBC Hgb Hct MCH RDW Plt Count Lymph % (Auto) Placer % (Auto) Placer # Baso # Seg Neutrophils % Seg Neuts % (Manual) Lymphocytes % (Manual) Monocytes % (Manual) Seg Neutrophils # Seg Neutrophils # Man Lymphocytes # (Manual) Monocytes # (Manual) Eosinophils # (Manual) Basophils # (Manual) PT INR APTT ABG pH ABG pO2 ABG HCO3 ABG O2 Saturation ABG Base Excess ABG Hemoglobin Oxyhemoglobin Sodium Potassium Chloride Carbon Dioxide BUN Creatinine Glucose POC Glucose 141 H 158 H 182 H Lactic Acid Calcium Ionized Calcium Phosphorus Magnesium Total Bilirubin AST ALT Alkaline Phosphatase Ammonia Total Creatine Kinase CK-MB (CK-2) CK-MB (CK-2) Rel Index Total Protein Albumin Urine WBC (Auto) Vancomycin Trough Salicylates Acetaminophen Plasma/Serum Alcohol Crossmatch 12/14/19 12/14/19 12/14/19 08:48 08:48 10:31 WBC 33.3 H RBC 2.70 L Hgb 7.9 L 8.0 L Hct 25.3 L 24.0 L MCH RDW 19.2 H Plt Count 476 H Lymph % (Auto) Placer % (Auto) Placer # Baso # Seg Neutrophils % Seg Neuts % (Manual) Lymphocytes % (Manual) Monocytes % (Manual) Seg Neutrophils # Seg Neutrophils # Man Lymphocytes # (Manual) Monocytes # (Manual) Eosinophils # (Manual) Basophils # (Manual) PT INR APTT ABG pH ABG pO2 ABG HCO3 ABG O2 Saturation ABG Base Excess ABG Hemoglobin Oxyhemoglobin Sodium 153 H Potassium 2.5 L* Chloride 114.9 H Carbon Dioxide 20 L BUN 38 H Creatinine 1.4 H Glucose 177 H POC Glucose Lactic Acid Calcium Ionized Calcium Phosphorus Magnesium Total Bilirubin AST ALT Alkaline Phosphatase Ammonia Total Creatine Kinase CK-MB (CK-2) CK-MB (CK-2) Rel Index Total Protein Albumin Urine WBC (Auto) Vancomycin Trough Salicylates Acetaminophen Plasma/Serum Alcohol Crossmatch 12/14/19 12/14/19 12/14/19 12:57 16:15 17:50 WBC RBC Hgb Hct MCH RDW Plt Count Lymph % (Auto) Placer % (Auto) Placer # Baso # Seg Neutrophils % Seg Neuts % (Manual) Lymphocytes % (Manual) Monocytes % (Manual) Seg Neutrophils # Seg Neutrophils # Man Lymphocytes # (Manual) Monocytes # (Manual) Eosinophils # (Manual) Basophils # (Manual) PT INR APTT ABG pH ABG pO2 73.6 L ABG HCO3 ABG O2 Saturation ABG Base Excess ABG Hemoglobin 7.6 L Oxyhemoglobin 94.0 L Sodium Potassium Chloride Carbon Dioxide BUN Creatinine Glucose POC Glucose 174 H 150 H Lactic Acid Calcium Ionized Calcium Phosphorus Magnesium Total Bilirubin AST ALT Alkaline Phosphatase Ammonia Total Creatine Kinase CK-MB (CK-2) CK-MB (CK-2) Rel Index Total Protein Albumin Urine WBC (Auto) Vancomycin Trough Salicylates Acetaminophen Plasma/Serum Alcohol Crossmatch 12/15/19 12/15/19 12/15/19 00:28 05:27 07:23 WBC 30.0 H RBC 3.11 L Hgb 8.6 L Hct 27.7 L MCH RDW 20.0 H Plt Count 473 H Lymph % (Auto) Placer % (Auto) Placer # Baso # Seg Neutrophils % Seg Neuts % (Manual) Lymphocytes % (Manual) Monocytes % (Manual) Seg Neutrophils # Seg Neutrophils # Man Lymphocytes # (Manual) Monocytes # (Manual) Eosinophils # (Manual) Basophils # (Manual) PT INR APTT ABG pH ABG pO2 ABG HCO3 ABG O2 Saturation ABG Base Excess ABG Hemoglobin Oxyhemoglobin Sodium Potassium Chloride Carbon Dioxide BUN Creatinine Glucose POC Glucose 167 H 148 H Lactic Acid Calcium Ionized Calcium Phosphorus Magnesium Total Bilirubin AST ALT Alkaline Phosphatase Ammonia Total Creatine Kinase CK-MB (CK-2) CK-MB (CK-2) Rel Index Total Protein Albumin Urine WBC (Auto) Vancomycin Trough Salicylates Acetaminophen Plasma/Serum Alcohol Crossmatch 12/15/19 12/15/19 12/15/19 07:23 12:21 17:41 WBC RBC Hgb Hct MCH RDW Plt Count Lymph % (Auto) Placer % (Auto) Placer # Baso # Seg Neutrophils % Seg Neuts % (Manual) Lymphocytes % (Manual) Monocytes % (Manual) Seg Neutrophils # Seg Neutrophils # Man Lymphocytes # (Manual) Monocytes # (Manual) Eosinophils # (Manual) Basophils # (Manual) PT INR APTT ABG pH ABG pO2 ABG HCO3 ABG O2 Saturation ABG Base Excess ABG Hemoglobin Oxyhemoglobin Sodium 147 H Potassium 3.5 L D Chloride 111.2 H Carbon Dioxide 19 L BUN 29 H Creatinine Glucose 126 H POC Glucose 154 H 144 H Lactic Acid Calcium Ionized Calcium Phosphorus Magnesium Total Bilirubin AST ALT Alkaline Phosphatase Ammonia Total Creatine Kinase CK-MB (CK-2) CK-MB (CK-2) Rel Index Total Protein Albumin Urine WBC (Auto) Vancomycin Trough Salicylates Acetaminophen Plasma/Serum Alcohol Crossmatch 12/16/19 12/16/19 12/16/19 00:22 05:30 05:44 WBC 30.8 H RBC 2.58 L Hgb 7.1 L Hct 22.7 L MCH RDW 19.6 H Plt Count 451 H Lymph % (Auto) Placer % (Auto) Placer # Baso # Seg Neutrophils % Seg Neuts % (Manual) Lymphocytes % (Manual) Monocytes % (Manual) Seg Neutrophils # Seg Neutrophils # Man Lymphocytes # (Manual) Monocytes # (Manual) Eosinophils # (Manual) Basophils # (Manual) PT INR APTT ABG pH ABG pO2 ABG HCO3 ABG O2 Saturation ABG Base Excess ABG Hemoglobin Oxyhemoglobin Sodium Potassium Chloride Carbon Dioxide BUN Creatinine Glucose POC Glucose 139 H 126 H Lactic Acid Calcium Ionized Calcium Phosphorus Magnesium Total Bilirubin AST ALT Alkaline Phosphatase Ammonia Total Creatine Kinase CK-MB (CK-2) CK-MB (CK-2) Rel Index Total Protein Albumin Urine WBC (Auto) Vancomycin Trough Salicylates Acetaminophen Plasma/Serum Alcohol Crossmatch 12/16/19 12/16/19 12/16/19 05:44 11:48 17:37 WBC RBC Hgb Hct MCH RDW Plt Count Lymph % (Auto) Placer % (Auto) Placer # Baso # Seg Neutrophils % Seg Neuts % (Manual) Lymphocytes % (Manual) Monocytes % (Manual) Seg Neutrophils # Seg Neutrophils # Man Lymphocytes # (Manual) Monocytes # (Manual) Eosinophils # (Manual) Basophils # (Manual) PT INR APTT ABG pH ABG pO2 ABG HCO3 ABG O2 Saturation ABG Base Excess ABG Hemoglobin Oxyhemoglobin Sodium Potassium 3.4 L Chloride 109.2 H Carbon Dioxide 19 L BUN 27 H Creatinine Glucose 124 H POC Glucose 125 H 148 H Lactic Acid Calcium Ionized Calcium Phosphorus Magnesium Total Bilirubin AST ALT Alkaline Phosphatase Ammonia Total Creatine Kinase CK-MB (CK-2) CK-MB (CK-2) Rel Index Total Protein Albumin Urine WBC (Auto) Vancomycin Trough Salicylates Acetaminophen Plasma/Serum Alcohol Crossmatch 12/16/19 12/17/19 12/17/19 23:43 05:28 12:47 WBC RBC Hgb Hct MCH RDW Plt Count Lymph % (Auto) Placer % (Auto) Placer # Baso # Seg Neutrophils % Seg Neuts % (Manual) Lymphocytes % (Manual) Monocytes % (Manual) Seg Neutrophils # Seg Neutrophils # Man Lymphocytes # (Manual) Monocytes # (Manual) Eosinophils # (Manual) Basophils # (Manual) PT INR APTT ABG pH ABG pO2 ABG HCO3 ABG O2 Saturation ABG Base Excess ABG Hemoglobin Oxyhemoglobin Sodium Potassium Chloride Carbon Dioxide BUN Creatinine Glucose POC Glucose 142 H 140 H 125 H Lactic Acid Calcium Ionized Calcium Phosphorus Magnesium Total Bilirubin AST ALT Alkaline Phosphatase Ammonia Total Creatine Kinase CK-MB (CK-2) CK-MB (CK-2) Rel Index Total Protein Albumin Urine WBC (Auto) Vancomycin Trough Salicylates Acetaminophen Plasma/Serum Alcohol Crossmatch 12/17/19 12/17/19 12/17/19 17:05 18:00 Unknown WBC RBC Hgb Hct MCH RDW Plt Count Lymph % (Auto) Placer % (Auto) Placer # Baso # Seg Neutrophils % Seg Neuts % (Manual) Lymphocytes % (Manual) Monocytes % (Manual) Seg Neutrophils # Seg Neutrophils # Man Lymphocytes # (Manual) Monocytes # (Manual) Eosinophils # (Manual) Basophils # (Manual) PT INR APTT ABG pH ABG pO2 68.1 L ABG HCO3 ABG O2 Saturation 93.7 L ABG Base Excess ABG Hemoglobin 5.0 L Oxyhemoglobin 91.7 L Sodium Potassium Chloride Carbon Dioxide BUN Creatinine Glucose POC Glucose 140 H Lactic Acid Calcium Ionized Calcium Phosphorus Magnesium Total Bilirubin AST ALT Alkaline Phosphatase Ammonia Total Creatine Kinase CK-MB (CK-2) CK-MB (CK-2) Rel Index Total Protein Albumin Urine WBC (Auto) Vancomycin Trough Salicylates Acetaminophen Plasma/Serum Alcohol Crossmatch 12/18/19 12/18/19 12/18/19 00:16 04:53 04:53 WBC 28.6 H RBC 2.27 L Hgb 6.3 L Hct 19.5 L* MCH RDW 20.0 H Plt Count 497 H Lymph % (Auto) Placer % (Auto) Placer # Baso # Seg Neutrophils % Seg Neuts % (Manual) Lymphocytes % (Manual) Monocytes % (Manual) Seg Neutrophils # Seg Neutrophils # Man Lymphocytes # (Manual) Monocytes # (Manual) Eosinophils # (Manual) Basophils # (Manual) PT INR APTT ABG pH ABG pO2 ABG HCO3 ABG O2 Saturation ABG Base Excess ABG Hemoglobin Oxyhemoglobin Sodium Potassium Chloride 107.9 H Carbon Dioxide 20 L BUN 27 H Creatinine 0.6 L Glucose 116 H POC Glucose 123 H Lactic Acid Calcium Ionized Calcium Phosphorus Magnesium Total Bilirubin AST ALT Alkaline Phosphatase Ammonia Total Creatine Kinase CK-MB (CK-2) CK-MB (CK-2) Rel Index Total Protein Albumin Urine WBC (Auto) Vancomycin Trough Salicylates Acetaminophen Plasma/Serum Alcohol Crossmatch 12/18/19 12/18/19 12/18/19 06:38 11:22 12:08 WBC RBC Hgb Hct MCH RDW Plt Count Lymph % (Auto) Placer % (Auto) Placer # Baso # Seg Neutrophils % Seg Neuts % (Manual) Lymphocytes % (Manual) Monocytes % (Manual) Seg Neutrophils # Seg Neutrophils # Man Lymphocytes # (Manual) Monocytes # (Manual) Eosinophils # (Manual) Basophils # (Manual) PT INR APTT ABG pH ABG pO2 ABG HCO3 ABG O2 Saturation ABG Base Excess ABG Hemoglobin Oxyhemoglobin Sodium Potassium Chloride Carbon Dioxide BUN Creatinine Glucose POC Glucose 120 H 127 H Lactic Acid Calcium Ionized Calcium Phosphorus Magnesium Total Bilirubin AST ALT Alkaline Phosphatase Ammonia Total Creatine Kinase CK-MB (CK-2) CK-MB (CK-2) Rel Index Total Protein Albumin Urine WBC (Auto) Vancomycin Trough Salicylates Acetaminophen Plasma/Serum Alcohol Crossmatch See Detail 12/18/19 12/18/19 12/18/19 14:05 17:49 23:53 WBC RBC Hgb Hct MCH RDW Plt Count Lymph % (Auto) Placer % (Auto) Placer # Baso # Seg Neutrophils % Seg Neuts % (Manual) Lymphocytes % (Manual) Monocytes % (Manual) Seg Neutrophils # Seg Neutrophils # Man Lymphocytes # (Manual) Monocytes # (Manual) Eosinophils # (Manual) Basophils # (Manual) PT INR APTT ABG pH 7.267 L ABG pO2 69.8 L ABG HCO3 ABG O2 Saturation 88.4 L ABG Base Excess ABG Hemoglobin 7.1 L Oxyhemoglobin 86.4 L Sodium Potassium Chloride Carbon Dioxide BUN Creatinine Glucose POC Glucose 157 H 128 H Lactic Acid Calcium Ionized Calcium Phosphorus Magnesium Total Bilirubin AST ALT Alkaline Phosphatase Ammonia Total Creatine Kinase CK-MB (CK-2) CK-MB (CK-2) Rel Index Total Protein Albumin Urine WBC (Auto) Vancomycin Trough Salicylates Acetaminophen Plasma/Serum Alcohol Crossmatch 12/19/19 12/19/19 12/19/19 03:37 03:37 05:25 WBC 31.3 H RBC 2.60 L Hgb 7.6 L Hct 23.0 L MCH RDW 19.4 H Plt Count 530 H Lymph % (Auto) Placer % (Auto) Placer # Baso # Seg Neutrophils % Seg Neuts % (Manual) Lymphocytes % (Manual) Monocytes % (Manual) Seg Neutrophils # Seg Neutrophils # Man Lymphocytes # (Manual) Monocytes # (Manual) Eosinophils # (Manual) Basophils # (Manual) PT INR APTT ABG pH ABG pO2 ABG HCO3 ABG O2 Saturation ABG Base Excess ABG Hemoglobin Oxyhemoglobin Sodium Potassium Chloride Carbon Dioxide 18 L BUN 36 H Creatinine Glucose 111 H POC Glucose 123 H Lactic Acid Calcium Ionized Calcium Phosphorus Magnesium Total Bilirubin AST ALT Alkaline Phosphatase Ammonia Total Creatine Kinase CK-MB (CK-2) CK-MB (CK-2) Rel Index Total Protein Albumin Urine WBC (Auto) Vancomycin Trough Salicylates Acetaminophen Plasma/Serum Alcohol Crossmatch 12/19/19 12/19/19 12/20/19 12:59 18:33 00:00 WBC RBC Hgb Hct MCH RDW Plt Count Lymph % (Auto) Placer % (Auto) Placer # Baso # Seg Neutrophils % Seg Neuts % (Manual) Lymphocytes % (Manual) Monocytes % (Manual) Seg Neutrophils # Seg Neutrophils # Man Lymphocytes # (Manual) Monocytes # (Manual) Eosinophils # (Manual) Basophils # (Manual) PT INR APTT ABG pH ABG pO2 ABG HCO3 ABG O2 Saturation ABG Base Excess ABG Hemoglobin Oxyhemoglobin Sodium Potassium Chloride Carbon Dioxide BUN Creatinine Glucose POC Glucose 130 H 118 H 135 H Lactic Acid Calcium Ionized Calcium Phosphorus Magnesium Total Bilirubin AST ALT Alkaline Phosphatase Ammonia Total Creatine Kinase CK-MB (CK-2) CK-MB (CK-2) Rel Index Total Protein Albumin Urine WBC (Auto) Vancomycin Trough Salicylates Acetaminophen Plasma/Serum Alcohol Crossmatch 12/20/19 12/20/19 12/20/19 05:46 12:31 18:07 WBC RBC Hgb Hct MCH RDW Plt Count Lymph % (Auto) Placer % (Auto) Placer # Baso # Seg Neutrophils % Seg Neuts % (Manual) Lymphocytes % (Manual) Monocytes % (Manual) Seg Neutrophils # Seg Neutrophils # Man Lymphocytes # (Manual) Monocytes # (Manual) Eosinophils # (Manual) Basophils # (Manual) PT INR APTT ABG pH ABG pO2 ABG HCO3 ABG O2 Saturation ABG Base Excess ABG Hemoglobin Oxyhemoglobin Sodium Potassium Chloride Carbon Dioxide BUN Creatinine Glucose POC Glucose 131 H 128 H 134 H Lactic Acid Calcium Ionized Calcium Phosphorus Magnesium Total Bilirubin AST ALT Alkaline Phosphatase Ammonia Total Creatine Kinase CK-MB (CK-2) CK-MB (CK-2) Rel Index Total Protein Albumin Urine WBC (Auto) Vancomycin Trough Salicylates Acetaminophen Plasma/Serum Alcohol Crossmatch 12/21/19 12/21/19 12/21/19 03:28 03:28 07:21 WBC 29.4 H RBC 2.30 L Hgb 6.8 L Hct 20.2 L MCH RDW 20.2 H Plt Count 746 H Lymph % (Auto) Placer % (Auto) Placer # Baso # Seg Neutrophils % Seg Neuts % (Manual) 85.0 H Lymphocytes % (Manual) 8.0 L Monocytes % (Manual) Seg Neutrophils # Seg Neutrophils # Man 25.0 H Lymphocytes # (Manual) Monocytes # (Manual) 1.5 H Eosinophils # (Manual) 0.6 H Basophils # (Manual) PT INR APTT ABG pH ABG pO2 ABG HCO3 ABG O2 Saturation ABG Base Excess ABG Hemoglobin Oxyhemoglobin Sodium Potassium Chloride Carbon Dioxide 17 L BUN 57 H Creatinine 1.4 H D Glucose POC Glucose 124 H Lactic Acid Calcium Ionized Calcium Phosphorus Magnesium Total Bilirubin AST ALT Alkaline Phosphatase Ammonia Total Creatine Kinase CK-MB (CK-2) CK-MB (CK-2) Rel Index Total Protein Albumin Urine WBC (Auto) Vancomycin Trough Salicylates Acetaminophen Plasma/Serum Alcohol Crossmatch 12/21/19 12/21/19 12/21/19 08:56 12:06 14:53 WBC RBC Hgb 7.2 L Hct 22.9 L MCH RDW Plt Count Lymph % (Auto) Placer % (Auto) Placer # Baso # Seg Neutrophils % Seg Neuts % (Manual) Lymphocytes % (Manual) Monocytes % (Manual) Seg Neutrophils # Seg Neutrophils # Man Lymphocytes # (Manual) Monocytes # (Manual) Eosinophils # (Manual) Basophils # (Manual) PT INR APTT ABG pH ABG pO2 ABG HCO3 ABG O2 Saturation ABG Base Excess ABG Hemoglobin Oxyhemoglobin Sodium Potassium Chloride Carbon Dioxide BUN Creatinine Glucose POC Glucose 116 H Lactic Acid Calcium Ionized Calcium Phosphorus Magnesium Total Bilirubin AST ALT Alkaline Phosphatase Ammonia Total Creatine Kinase CK-MB (CK-2) CK-MB (CK-2) Rel Index Total Protein Albumin Urine WBC (Auto) Vancomycin Trough 33.8 H Salicylates Acetaminophen Plasma/Serum Alcohol Crossmatch 12/21/19 12/21/19 12/21/19 14:54 17:27 23:49 WBC RBC Hgb Hct MCH RDW Plt Count Lymph % (Auto) Placer % (Auto) Placer # Baso # Seg Neutrophils % Seg Neuts % (Manual) Lymphocytes % (Manual) Monocytes % (Manual) Seg Neutrophils # Seg Neutrophils # Man Lymphocytes # (Manual) Monocytes # (Manual) Eosinophils # (Manual) Basophils # (Manual) PT INR APTT ABG pH ABG pO2 ABG HCO3 ABG O2 Saturation ABG Base Excess ABG Hemoglobin Oxyhemoglobin Sodium Potassium Chloride Carbon Dioxide BUN Creatinine Glucose POC Glucose 145 H 127 H Lactic Acid Calcium Ionized Calcium Phosphorus Magnesium Total Bilirubin AST ALT Alkaline Phosphatase Ammonia Total Creatine Kinase CK-MB (CK-2) CK-MB (CK-2) Rel Index Total Protein Albumin Urine WBC (Auto) Vancomycin Trough Salicylates Acetaminophen Plasma/Serum Alcohol Crossmatch See Detail 12/22/19 12/22/19 12/22/19 04:43 05:56 08:40 WBC RBC Hgb Hct MCH RDW Plt Count Lymph % (Auto) Placer % (Auto) Placer # Baso # Seg Neutrophils % Seg Neuts % (Manual) Lymphocytes % (Manual) Monocytes % (Manual) Seg Neutrophils # Seg Neutrophils # Man Lymphocytes # (Manual) Monocytes # (Manual) Eosinophils # (Manual) Basophils # (Manual) PT INR APTT ABG pH ABG pO2 75.6 L ABG HCO3 ABG O2 Saturation ABG Base Excess -2.6 L ABG Hemoglobin 6.8 L Oxyhemoglobin 94.6 L Sodium Potassium Chloride Carbon Dioxide 17 L BUN 60 H Creatinine 1.4 H Glucose 126 H POC Glucose 153 H Lactic Acid Calcium Ionized Calcium Phosphorus Magnesium Total Bilirubin AST ALT Alkaline Phosphatase Ammonia Total Creatine Kinase CK-MB (CK-2) CK-MB (CK-2) Rel Index Total Protein Albumin Urine WBC (Auto) Vancomycin Trough Salicylates Acetaminophen Plasma/Serum Alcohol Crossmatch 12/22/19 12/22/19 12/23/19 12:07 17:49 04:30 WBC 22.4 H RBC 2.68 L Hgb 7.6 L Hct 22.9 L MCH RDW 19.9 H Plt Count 998 H Lymph % (Auto) Placer % (Auto) Placer # Baso # Seg Neutrophils % Seg Neuts % (Manual) 88.0 H Lymphocytes % (Manual) 2.0 L Monocytes % (Manual) 9.0 H Seg Neutrophils # Seg Neutrophils # Man 19.7 H Lymphocytes # (Manual) 0.4 L Monocytes # (Manual) 2.0 H Eosinophils # (Manual) Basophils # (Manual) PT INR APTT ABG pH ABG pO2 ABG HCO3 ABG O2 Saturation ABG Base Excess ABG Hemoglobin Oxyhemoglobin Sodium Potassium Chloride Carbon Dioxide BUN Creatinine Glucose POC Glucose 140 H 116 H Lactic Acid Calcium Ionized Calcium Phosphorus Magnesium Total Bilirubin AST ALT Alkaline Phosphatase Ammonia Total Creatine Kinase CK-MB (CK-2) CK-MB (CK-2) Rel Index Total Protein Albumin Urine WBC (Auto) Vancomycin Trough Salicylates Acetaminophen Plasma/Serum Alcohol Crossmatch 12/23/19 12/23/19 12/23/19 04:30 12:00 18:06 WBC RBC Hgb Hct MCH RDW Plt Count Lymph % (Auto) Placer % (Auto) Placer # Baso # Seg Neutrophils % Seg Neuts % (Manual) Lymphocytes % (Manual) Monocytes % (Manual) Seg Neutrophils # Seg Neutrophils # Man Lymphocytes # (Manual) Monocytes # (Manual) Eosinophils # (Manual) Basophils # (Manual) PT INR APTT ABG pH ABG pO2 ABG HCO3 ABG O2 Saturation ABG Base Excess ABG Hemoglobin Oxyhemoglobin Sodium Potassium 5.2 H Chloride Carbon Dioxide 21 L BUN 69 H Creatinine 1.5 H Glucose 117 H POC Glucose 128 H 138 H Lactic Acid Calcium Ionized Calcium Phosphorus Magnesium Total Bilirubin AST ALT Alkaline Phosphatase Ammonia Total Creatine Kinase CK-MB (CK-2) CK-MB (CK-2) Rel Index Total Protein Albumin Urine WBC (Auto) Vancomycin Trough Salicylates Acetaminophen Plasma/Serum Alcohol Crossmatch 12/23/19 12/24/19 12/24/19 23:46 04:31 05:08 WBC RBC Hgb Hct MCH RDW Plt Count Lymph % (Auto) Placer % (Auto) Placer # Baso # Seg Neutrophils % Seg Neuts % (Manual) Lymphocytes % (Manual) Monocytes % (Manual) Seg Neutrophils # Seg Neutrophils # Man Lymphocytes # (Manual) Monocytes # (Manual) Eosinophils # (Manual) Basophils # (Manual) PT INR APTT ABG pH ABG pO2 ABG HCO3 ABG O2 Saturation ABG Base Excess ABG Hemoglobin Oxyhemoglobin Sodium Potassium 5.3 H Chloride 107.6 H Carbon Dioxide 20 L BUN 72 H Creatinine 1.6 H Glucose 120 H POC Glucose 120 H 140 H Lactic Acid Calcium Ionized Calcium Phosphorus Magnesium Total Bilirubin AST ALT Alkaline Phosphatase Ammonia Total Creatine Kinase CK-MB (CK-2) CK-MB (CK-2) Rel Index Total Protein Albumin Urine WBC (Auto) Vancomycin Trough Salicylates Acetaminophen Plasma/Serum Alcohol Crossmatch 12/24/19 12/24/19 12/25/19 11:58 17:49 03:47 WBC 36.2 H RBC 2.92 L Hgb 8.4 L Hct 26.1 L MCH RDW 20.2 H Plt Count 942 H Lymph % (Auto) Placer % (Auto) Placer # Baso # Seg Neutrophils % Seg Neuts % (Manual) 97.5 H Lymphocytes % (Manual) 1.0 L Monocytes % (Manual) Seg Neutrophils # Seg Neutrophils # Man 35.3 H Lymphocytes # (Manual) 0.4 L Monocytes # (Manual) Eosinophils # (Manual) Basophils # (Manual) PT INR APTT ABG pH ABG pO2 ABG HCO3 ABG O2 Saturation ABG Base Excess ABG Hemoglobin Oxyhemoglobin Sodium Potassium Chloride Carbon Dioxide BUN Creatinine Glucose POC Glucose 146 H 131 H Lactic Acid Calcium Ionized Calcium Phosphorus Magnesium Total Bilirubin AST ALT Alkaline Phosphatase Ammonia Total Creatine Kinase CK-MB (CK-2) CK-MB (CK-2) Rel Index Total Protein Albumin Urine WBC (Auto) Vancomycin Trough Salicylates Acetaminophen Plasma/Serum Alcohol Crossmatch 12/25/19 12/25/19 12/25/19 03:47 05:30 12:23 WBC RBC Hgb Hct MCH RDW Plt Count Lymph % (Auto) Placer % (Auto) Placer # Baso # Seg Neutrophils % Seg Neuts % (Manual) Lymphocytes % (Manual) Monocytes % (Manual) Seg Neutrophils # Seg Neutrophils # Man Lymphocytes # (Manual) Monocytes # (Manual) Eosinophils # (Manual) Basophils # (Manual) PT INR APTT ABG pH ABG pO2 ABG HCO3 ABG O2 Saturation ABG Base Excess ABG Hemoglobin Oxyhemoglobin Sodium Potassium Chloride Carbon Dioxide 15 L BUN 70 H Creatinine 1.7 H Glucose 153 H POC Glucose 169 H 135 H Lactic Acid Calcium Ionized Calcium Phosphorus Magnesium Total Bilirubin AST ALT Alkaline Phosphatase Ammonia Total Creatine Kinase CK-MB (CK-2) CK-MB (CK-2) Rel Index Total Protein Albumin Urine WBC (Auto) Vancomycin Trough Salicylates Acetaminophen Plasma/Serum Alcohol Crossmatch 12/25/19 12/25/19 12/26/19 17:37 23:29 09:47 WBC 22.1 H RBC 2.83 L Hgb 7.9 L Hct 25.5 L MCH RDW 20.0 H Plt Count 894 H Lymph % (Auto) Placer % (Auto) Placer # Baso # Seg Neutrophils % Seg Neuts % (Manual) Lymphocytes % (Manual) Monocytes % (Manual) Seg Neutrophils # Seg Neutrophils # Man Lymphocytes # (Manual) Monocytes # (Manual) Eosinophils # (Manual) Basophils # (Manual) PT INR APTT ABG pH ABG pO2 ABG HCO3 ABG O2 Saturation ABG Base Excess ABG Hemoglobin Oxyhemoglobin Sodium Potassium Chloride Carbon Dioxide BUN Creatinine Glucose POC Glucose 120 H 140 H Lactic Acid Calcium Ionized Calcium Phosphorus Magnesium Total Bilirubin AST ALT Alkaline Phosphatase Ammonia Total Creatine Kinase CK-MB (CK-2) CK-MB (CK-2) Rel Index Total Protein Albumin Urine WBC (Auto) Vancomycin Trough Salicylates Acetaminophen Plasma/Serum Alcohol Crossmatch 12/26/19 12/26/19 12/26/19 09:47 11:46 17:52 WBC RBC Hgb Hct MCH RDW Plt Count Lymph % (Auto) Placer % (Auto) Placer # Baso # Seg Neutrophils % Seg Neuts % (Manual) Lymphocytes % (Manual) Monocytes % (Manual) Seg Neutrophils # Seg Neutrophils # Man Lymphocytes # (Manual) Monocytes # (Manual) Eosinophils # (Manual) Basophils # (Manual) PT INR APTT ABG pH ABG pO2 ABG HCO3 ABG O2 Saturation ABG Base Excess ABG Hemoglobin Oxyhemoglobin Sodium Potassium Chloride Carbon Dioxide 18 L BUN 65 H Creatinine 1.4 H Glucose 132 H POC Glucose 110 H 145 H Lactic Acid Calcium Ionized Calcium Phosphorus Magnesium Total Bilirubin AST ALT Alkaline Phosphatase Ammonia Total Creatine Kinase CK-MB (CK-2) CK-MB (CK-2) Rel Index Total Protein Albumin Urine WBC (Auto) Vancomycin Trough Salicylates Acetaminophen Plasma/Serum Alcohol Crossmatch 12/27/19 12/27/19 12/27/19 00:01 03:42 03:42 WBC 18.0 H RBC 2.86 L Hgb 8.0 L Hct 25.2 L MCH RDW 19.2 H Plt Count 873 H Lymph % (Auto) 8.4 L Placer % (Auto) 7.5 H Placer # 1.4 H Baso # 0.2 H Seg Neutrophils % 82.2 H Seg Neuts % (Manual) Lymphocytes % (Manual) Monocytes % (Manual) Seg Neutrophils # 14.8 H Seg Neutrophils # Man Lymphocytes # (Manual) Monocytes # (Manual) Eosinophils # (Manual) Basophils # (Manual) PT INR APTT ABG pH ABG pO2 ABG HCO3 ABG O2 Saturation ABG Base Excess ABG Hemoglobin Oxyhemoglobin Sodium Potassium Chloride Carbon Dioxide BUN 73 H Creatinine 1.4 H Glucose 119 H POC Glucose 124 H Lactic Acid Calcium Ionized Calcium Phosphorus Magnesium Total Bilirubin AST ALT Alkaline Phosphatase Ammonia Total Creatine Kinase CK-MB (CK-2) CK-MB (CK-2) Rel Index Total Protein Albumin Urine WBC (Auto) Vancomycin Trough Salicylates Acetaminophen Plasma/Serum Alcohol Crossmatch 12/27/19 12/27/19 12/27/19 05:45 11:45 17:29 WBC RBC Hgb Hct MCH RDW Plt Count Lymph % (Auto) Placer % (Auto) Placer # Baso # Seg Neutrophils % Seg Neuts % (Manual) Lymphocytes % (Manual) Monocytes % (Manual) Seg Neutrophils # Seg Neutrophils # Man Lymphocytes # (Manual) Monocytes # (Manual) Eosinophils # (Manual) Basophils # (Manual) PT INR APTT ABG pH ABG pO2 ABG HCO3 ABG O2 Saturation ABG Base Excess ABG Hemoglobin Oxyhemoglobin Sodium Potassium Chloride Carbon Dioxide BUN Creatinine Glucose POC Glucose 131 H 123 H 134 H Lactic Acid Calcium Ionized Calcium Phosphorus Magnesium Total Bilirubin AST ALT Alkaline Phosphatase Ammonia Total Creatine Kinase CK-MB (CK-2) CK-MB (CK-2) Rel Index Total Protein Albumin Urine WBC (Auto) Vancomycin Trough Salicylates Acetaminophen Plasma/Serum Alcohol Crossmatch 12/28/19 12/28/19 12/28/19 00:12 05:14 11:53 WBC RBC Hgb Hct MCH RDW Plt Count Lymph % (Auto) Placer % (Auto) Placer # Baso # Seg Neutrophils % Seg Neuts % (Manual) Lymphocytes % (Manual) Monocytes % (Manual) Seg Neutrophils # Seg Neutrophils # Man Lymphocytes # (Manual) Monocytes # (Manual) Eosinophils # (Manual) Basophils # (Manual) PT INR APTT ABG pH ABG pO2 ABG HCO3 ABG O2 Saturation ABG Base Excess ABG Hemoglobin Oxyhemoglobin Sodium Potassium Chloride Carbon Dioxide BUN Creatinine Glucose POC Glucose 138 H 130 H 146 H Lactic Acid Calcium Ionized Calcium Phosphorus Magnesium Total Bilirubin AST ALT Alkaline Phosphatase Ammonia Total Creatine Kinase CK-MB (CK-2) CK-MB (CK-2) Rel Index Total Protein Albumin Urine WBC (Auto) Vancomycin Trough Salicylates Acetaminophen Plasma/Serum Alcohol Crossmatch 12/28/19 12/29/19 12/29/19 17:39 00:01 18:11 WBC RBC Hgb Hct MCH RDW Plt Count Lymph % (Auto) Placer % (Auto) Placer # Baso # Seg Neutrophils % Seg Neuts % (Manual) Lymphocytes % (Manual) Monocytes % (Manual) Seg Neutrophils # Seg Neutrophils # Man Lymphocytes # (Manual) Monocytes # (Manual) Eosinophils # (Manual) Basophils # (Manual) PT INR APTT ABG pH ABG pO2 ABG HCO3 ABG O2 Saturation ABG Base Excess ABG Hemoglobin Oxyhemoglobin Sodium Potassium Chloride Carbon Dioxide BUN Creatinine Glucose POC Glucose 117 H 139 H 130 H Lactic Acid Calcium Ionized Calcium Phosphorus Magnesium Total Bilirubin AST ALT Alkaline Phosphatase Ammonia Total Creatine Kinase CK-MB (CK-2) CK-MB (CK-2) Rel Index Total Protein Albumin Urine WBC (Auto) Vancomycin Trough Salicylates Acetaminophen Plasma/Serum Alcohol Crossmatch 12/29/19 12/30/19 12/30/19 23:09 00:02 01:06 WBC 16.7 H RBC 2.91 L Hgb 8.2 L Hct 25.4 L MCH RDW 18.7 H Plt Count 708 H Lymph % (Auto) 9.4 L Placer % (Auto) Placer # 0.9 H Baso # Seg Neutrophils % 83.5 H Seg Neuts % (Manual) Lymphocytes % (Manual) Monocytes % (Manual) Seg Neutrophils # 14.0 H Seg Neutrophils # Man Lymphocytes # (Manual) Monocytes # (Manual) Eosinophils # (Manual) Basophils # (Manual) PT INR APTT ABG pH ABG pO2 ABG HCO3 ABG O2 Saturation ABG Base Excess ABG Hemoglobin Oxyhemoglobin Sodium Potassium Chloride Carbon Dioxide BUN Creatinine Glucose POC Glucose 120 H 114 H Lactic Acid Calcium Ionized Calcium Phosphorus Magnesium Total Bilirubin AST ALT Alkaline Phosphatase Ammonia Total Creatine Kinase CK-MB (CK-2) CK-MB (CK-2) Rel Index Total Protein Albumin Urine WBC (Auto) Vancomycin Trough Salicylates Acetaminophen Plasma/Serum Alcohol Crossmatch 12/30/19 12/30/19 12/30/19 01:06 04:23 05:18 WBC RBC Hgb Hct MCH RDW Plt Count Lymph % (Auto) Placer % (Auto) Placer # Baso # Seg Neutrophils % Seg Neuts % (Manual) Lymphocytes % (Manual) Monocytes % (Manual) Seg Neutrophils # Seg Neutrophils # Man Lymphocytes # (Manual) Monocytes # (Manual) Eosinophils # (Manual) Basophils # (Manual) PT INR APTT ABG pH ABG pO2 ABG HCO3 ABG O2 Saturation ABG Base Excess ABG Hemoglobin 8.3 L Oxyhemoglobin Sodium Potassium Chloride Carbon Dioxide BUN 70 H Creatinine Glucose 122 H POC Glucose 130 H Lactic Acid Calcium Ionized Calcium Phosphorus Magnesium Total Bilirubin AST ALT Alkaline Phosphatase Ammonia Total Creatine Kinase CK-MB (CK-2) CK-MB (CK-2) Rel Index Total Protein Albumin Urine WBC (Auto) Vancomycin Trough Salicylates Acetaminophen Plasma/Serum Alcohol Crossmatch 12/30/19 12/30/19 12/30/19 05:40 12:17 17:43 WBC RBC Hgb Hct MCH RDW Plt Count Lymph % (Auto) Placer % (Auto) Placer # Baso # Seg Neutrophils % Seg Neuts % (Manual) Lymphocytes % (Manual) Monocytes % (Manual) Seg Neutrophils # Seg Neutrophils # Man Lymphocytes # (Manual) Monocytes # (Manual) Eosinophils # (Manual) Basophils # (Manual) PT INR APTT ABG pH ABG pO2 ABG HCO3 ABG O2 Saturation ABG Base Excess ABG Hemoglobin Oxyhemoglobin Sodium Potassium Chloride Carbon Dioxide BUN Creatinine Glucose POC Glucose 135 H 132 H 118 H Lactic Acid Calcium Ionized Calcium Phosphorus Magnesium Total Bilirubin AST ALT Alkaline Phosphatase Ammonia Total Creatine Kinase CK-MB (CK-2) CK-MB (CK-2) Rel Index Total Protein Albumin Urine WBC (Auto) Vancomycin Trough Salicylates Acetaminophen Plasma/Serum Alcohol Crossmatch 12/30/19 12/31/19 23:29 05:19 WBC RBC Hgb Hct MCH RDW Plt Count Lymph % (Auto) Placer % (Auto) Placer # Baso # Seg Neutrophils % Seg Neuts % (Manual) Lymphocytes % (Manual) Monocytes % (Manual) Seg Neutrophils # Seg Neutrophils # Man Lymphocytes # (Manual) Monocytes # (Manual) Eosinophils # (Manual) Basophils # (Manual) PT INR APTT ABG pH ABG pO2 ABG HCO3 ABG O2 Saturation ABG Base Excess ABG Hemoglobin Oxyhemoglobin Sodium Potassium Chloride Carbon Dioxide BUN Creatinine Glucose POC Glucose 114 H 109 H Lactic Acid Calcium Ionized Calcium Phosphorus Magnesium Total Bilirubin AST ALT Alkaline Phosphatase Ammonia Total Creatine Kinase CK-MB (CK-2) CK-MB (CK-2) Rel Index Total Protein Albumin Urine WBC (Auto) Vancomycin Trough Salicylates Acetaminophen Plasma/Serum Alcohol Crossmatch Allied health notes reviewed: nursing
[2019-12-31] MEDS: QUEtiapine 100 MG TAB PO SCH (21:37)
[2020-01-01] MEDS: GLYCOPYRROLATE 1 MG TAB PO SCH ×3 (07:27→19:56)
[2020-01-01] MEDS: MIRTAZAPINE 30 MG TAB PO SCH (08:59)
[2020-01-01] MEDS: QUEtiapine 200 MG TAB PO SCH (08:59)
[2020-01-01] MEDS: TAMSULOSIN 0.4 MG CAP PO SCH (08:59)
[2020-01-01] MEDS: hydrOXYzine PAMOATE 25 MG CAP PO SCH ×2 (08:59→21:25)
[2020-01-01] MEDS: levETIRAcetam 500 MG/5 ML ORAL LIQD PO SCH ×2 (08:59→21:26)
[2020-01-01] MEDS: LANSOPRAZOLE 30 MG SOLUTAB FEEDTUBE SCH (08:59)
[2020-01-01] MEDS: SERTRALINE 50 MG TAB PO SCH (09:02)
--- NOTE | 2020-01-01 13:37 | Progress Note ---
Assessment and Plan / Anoxic brain injury: suspected CT head: No acute abnormality. neurology consult placed, EEG ordered showed Generalized slowing. No seizures or epileptiform activity. Per neurology : Patient found to have intact corneal/VOR/cough reflexes, and is withdrawing lower extremities, therefore patient is not found to be brain . However, given that patient had an out of hospital cardiac arrest, [facility], the likelihood of meaningful neurological recovery is somewhat low. -Patient now opening her eyes but does not follow any command or move any extremities /Acute Respiratory failure -s/p intubation, s/p trach and PEG on 12/12 with mechanical ventilation - CTA was done and negative for PE, - Echo quality is poor, showed diastolic dysfunction - continue ICU monitoring - wean OFF vent/O2 as tolerated /Anemia, microcytic -Continue to hold heparin, transfused 2 units of packed RBC -ordered stool for occult blood - pending /Acute metabolic encephalopathy/toxic encephalopathy due to the above - cont supportive care /Hyperammonemia - likely from liver disease related to EtOH abuse - Patient had elevated ammonia level and treated with lactulose /Metabolic Acidosis -Alcohol ketoacidosis vs hypoprofusion -Continue to monitor /ELevated LFTs, stable now - due to ischemic hepatitis. /Leucocytosis with sepsis - Source MRSA bacteremia and MSSA pneumonia. UA showed pyuria. RUQ US showed no ascites. - Repeat TTE negative for vegetation. Completed 7 days of Ceftriaxone on 11/29/2019. -Treated with Abx vancomycin 1 gm IV q 12 hour total 2 week till 12/30/2019 /MSSA pneumonia: Status post vancomycin till 12/30/2019 /ALcohol USe Disorder - given ongoing Alcohol use almost daily, s/p IV Thiamine - monitor /Severe hypokalemia -Repleted /Seizure disorder: treat with Keppra /H. Influenzae, tracheobronchitis, treated with abx DNR, Very poor prognosis The high probability of a clinically significant, sudden or life threatening deterioration of the [neurology,respiratory] system(s) required my full and direct attention, intervention and personal management. The aggregate critical care time was [32] minutes. This time is in addition to time spent performing reported procedures but includes the following: [x] Data Review and interpretation [x] Patient assessment and monitoring of vital signs [x] Documentation [x] Medication orders and management Disposition: prognosis very poor. Family wants full code. offered hospice but refused 12/31/19: still intubated via trach, no restraints needed, FiO2 30%, PEEP 6, Difficulty getting to Hospice, mother wants to kept updated. Patient has 4 kids, 2 sons in detention, 1 son is transgender and not involved per mother; Daughter is Deborah who is [employer] 01/01/20: Still intubated, but patient opening her eyes but does not follow any command. Unable to set up inpatient hospice Brief History: 54-year-old female with a past medical history of Hypertension, Depression, Tobacco use Disorder, Alcohol use Disorder as confirmed by Daughter and pt's mother presents to the hospital status post cardiac arrest at home. EMS found pt in [place]. They were unable to intubate patient with a ET tube because she was clenching down therefore Joe airway placed. Per the ED physician who evaluated pt, Patient presented with a pulse, intermittent respirations, and bagging support via Joe airway with O2 sat of 100%. Accu-Chek of 71 obtained by EMS. She was intubated in the ER and called for admission. Following admission patient was diagnosed with anoxic brain injury, sepsis with MRSA bacteremia and MSSA pneumonia, alcoholic liver disease. Family member wished for full code, patient currently getting treated with IV antibiotics for sepsis, status post trach and PEG on 12/13/19. Subjective Date of service: 01/01/20 Principal diagnosis: Ac cardiopulmonary arrest; Ac hypoxemic resp failure; Acute encephalopathy Interval history: Patient seen and examined remained on mechanical ventilation with trach, only open her eyes patient now DNR Discussed with RN at bedside, discussed with wrapper caser for disposition planning Tolerating tube feeding with PEG tube, needs placement/hospice - uninsured PUI?: No COVID19: Negative Objective - Exam Narrative Exam: General appearance: Present: other (on vent, elderly female, open eyes) - EENT Eyes: no scleral icterus, no conjunctival injection, pupil not reactive ENT: clear oral mucosa, dentition normal, no oropharyngeal erythema Ears: bilateral: normal - Neck Neck: trach on place - Respiratory Respiratory effort: other (on vent) Respiratory: bilateral: rales - Cardiovascular Rhythm: regular Heart Sounds: Present: S1 & S2. Absent: gallop, rub Extremities: pulses intact, No edema, normal color - Gastrointestinal General gastrointestinal: Present: soft, non-tender, non-distended, normal bowel sounds - Integumentary Integumentary: clear, warm, dry - Musculoskeletal Musculoskeletal: does not respond to commend - Neurologic Neurologic: other (intubated with trach and 2+ reflexes throughout). Does not follow commands or move extremities - Psychiatric Psychiatric: no appropriate mood/affect, no intact judgment & insight, no memory intact - Constitutional Vitals: Vital Signs - 12hr 01/01/20 01/01/20 01/01/20 02:00 03:00 03:28 Temperature Pulse Rate 108 H 111 H 112 H Pulse Rate [ From Monitor] Respiratory 20 21 Rate Blood Pressure 119/80 133/87 133/87 O2 Sat by Pulse 100 100 100 Oximetry O2 Sat by Pulse 100 Oximetry [ Assessment] 01/01/20 01/01/20 01/01/20 03:35 04:00 05:00 Temperature 97.6 F Pulse Rate 114 H 114 H Pulse Rate [ 115 H From Monitor] Respiratory 23 23 Rate Blood Pressure 128/84 130/88 O2 Sat by Pulse 100 100 Oximetry O2 Sat by Pulse Oximetry [ Assessment] 01/01/20 01/01/20 01/01/20 06:00 07:00 08:00 Temperature 97.8 F Pulse Rate 112 H 114 H 109 H Pulse Rate [ 113 H From Monitor] Respiratory 22 22 13 Rate Blood Pressure 132/92 134/94 135/89 O2 Sat by Pulse 100 100 100 Oximetry O2 Sat by Pulse Oximetry [ Assessment] 01/01/20 01/01/20 01/01/20 08:05 09:01 09:13 Temperature Pulse Rate 114 H 109 H Pulse Rate [ From Monitor] Respiratory 16 Rate Blood Pressure 134/94 137/89 O2 Sat by Pulse 100 100 Oximetry O2 Sat by Pulse 98 Oximetry [ Assessment] 01/01/20 01/01/20 01/01/20 10:00 11:01 11:52 Temperature Pulse Rate 118 H 119 H 118 H Pulse Rate [ From Monitor] Respiratory 17 19 Rate Blood Pressure 129/85 128/89 129/85 O2 Sat by Pulse 100 100 100 Oximetry O2 Sat by Pulse Oximetry [ Assessment] 01/01/20 01/01/20 12:00 13:00 Temperature 98.3 F Pulse Rate 114 H 113 H Pulse Rate [ 114 H From Monitor] Respiratory 14 14 Rate Blood Pressure 133/91 142/87 O2 Sat by Pulse 100 100 Oximetry O2 Sat by Pulse Oximetry [ Assessment] - Labs CBC & Chem 7: 12/30/19 01:06 12/30/19 01:06 Labs: Abnormal lab results 12/31/19 01/01/20 01/01/20 Range/Units 17:50 00:10 05:19 POC Glucose 116 H 131 H 122 H (70-105) 01/01/20 Range/Units 12:02 POC Glucose 136 H (70-105)
--- NOTE | 2020-01-01 18:14 | Progress Note ---
Assessment and Plan Acute cardiopulmonary arrest with ROSC Acute hypoxemic respiratory failure on MVS Acute metabolic-toxic encephalopathy Metabolic acidosis/alcoholic acidosis/Lactic acidosis Ischemic hepatitis Leucocytosis with lactic acidosis Tobacco use disorder ALcohol use Disorder Hypokalemia High grade fevers - no new issues; continue care as below - repeat CXR prn at this point - continue daily SAT's and assessment for readiness for SBT (For PSV trial today) - Continue to wean supplemental oxygen for target O2 sat's > 90% - continue to rest on AC mode qhs - VAP bundle addressed (continue aspiration precautions, HOB > 40) - continue bronchodilators with routine trach care and pulmonary hygiene per RT - continue Seroquel to see if aqids weaning as ventiolation is adequate and perhaps tachypnea on PSV mode has a neural component - continue Antibiotics per ID recommendations; de-escalate based on HILARIO /sensitivities / clinical progress - continue Seroquel for tentative delirium and to spare IV sedation - continue Reglan for G.I. motility - Continue VTE and Stress ulcer prophylaxis - Continue enteric nutritional support - Monitor glycemic control, with target blood glucose 140-180 mg/dL while critically ill (Avoid hypoglycemia) - ABG and CXR prn - Continue to avoid nephrotoxins, adjust all medications fro GFR and CrCL - Continue to avoid benzodiazepines , as much as possible, to reduce the possibility of delirium - Continue prn analgesia per CPOT score - Continue to maintain of sleep-wake cycle, avoid delirium - PT/OT/ROM exercises- awaiting PT/OT evaluation - Continue mobility protocol and skin assessment per protocol for pressure ulcer prevention - Continue to monitor for clinical seizures - Continue Nicotine withdrawal precautions, alcohol withdrawal precautions - continue other care per attending / other consultants ..... re-evaluate in am & prn CONDITION: CRITICAL PROGNOSIS: GUARDED CODE STATUS: FULL CODE The high probability of a clinically significant, sudden or life-threatening deterioration of the [respiratory, cardiovascular & neurologic] system(s) required my full and direct attention, intervention and personal management. The aggregate critical care time was [34] minutes without overlap. Time includes spent on; [x] Data Review and interpretation [x] Patient assessment and monitoring of vital signs [x] Documentation [x] Medication orders and management Subjective Date of service: 01/01/20 Principal diagnosis: Ac cardiopulmonary arrest; Ac hypoxemic resp failure; Acute encephalopathy Interval history: Patient is seen today for: Acute cardiopulmonary arrest with ROSC; Acute hypoxemic respiratory failure; Acute metabolic-toxic encephalopathy; Ischemic hepatitis; Leucocytosis with lactic acidosis; Tobacco use disorder; Alcohol use Disorder; Hypokalemia; High grade fevers Seen and examined at bedside; 24hour events reviewed; nursing and respiratory care staff consulted; no adverse overnight events reported to me; resting peacefully in bed; still weaning tenuously but on a wean now; AMS is persistent PUI?: No COVID19: Negative Objective Vital Signs - 12hr 01/01/20 01/01/20 01/01/20 07:00 08:00 08:05 Temperature 97.8 F Pulse Rate 114 H 111 H 114 H Pulse Rate [ 113 H From Monitor] Respiratory 22 13 Rate Blood Pressure 134/94 135/89 134/94 O2 Sat by Pulse 100 100 100 Oximetry O2 Sat by Pulse Oximetry [ Assessment] 01/01/20 01/01/20 01/01/20 09:01 09:13 10:00 Temperature Pulse Rate 109 H 118 H Pulse Rate [ From Monitor] Respiratory 16 17 Rate Blood Pressure 137/89 129/85 O2 Sat by Pulse 100 100 Oximetry O2 Sat by Pulse 98 Oximetry [ Assessment] 01/01/20 01/01/20 01/01/20 11:01 11:52 12:00 Temperature 98.3 F Pulse Rate 119 H 118 H 106 H Pulse Rate [ 114 H From Monitor] Respiratory 19 14 Rate Blood Pressure 128/89 129/85 133/91 O2 Sat by Pulse 100 100 100 Oximetry O2 Sat by Pulse Oximetry [ Assessment] 01/01/20 01/01/20 01/01/20 13:00 14:00 15:00 Temperature Pulse Rate 113 H 114 H 113 H Pulse Rate [ From Monitor] Respiratory 14 13 15 Rate Blood Pressure 142/87 137/85 134/86 O2 Sat by Pulse 100 100 100 Oximetry O2 Sat by Pulse Oximetry [ Assessment] 01/01/20 01/01/20 01/01/20 16:00 16:10 17:00 Temperature 98.6 F Pulse Rate 113 H 109 H 110 H Pulse Rate [ 109 H From Monitor] Respiratory 16 12 Rate Blood Pressure 140/87 140/87 135/87 O2 Sat by Pulse 100 100 100 Oximetry O2 Sat by Pulse 99 Oximetry [ Assessment] Constitutional: no acute distress, other (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, with midline tracheostomy and mild dys-synchrony) Eyes: non-icteric ENT: oropharynx moist, other (s/p trach) Neck: supple, no lymphadenopathy, no JVD Effort: mildly labored Ascultation: Bilateral: diminished breath sounds, rhonchi Percussion: Bilateral: not dull Cardiovascular: regular rate and rhythm (tachycardia), other (S1,S2) Gastrointestinal: normoactive bowel sounds, soft, non-tender, non-distended Integumentary: normal Extremities: no cyanosis, no edema, pulses normal, no ischemia or petechiae Neurologic: unable to assess, other (awake but not tracking voice ) Psychiatric: other (Psychiatric: Unable to assess) CBC and BMP: 12/30/19 01:06 12/30/19 01:06 ABG, PT/INR, D-dimer: ABG ABG pH 7.440 pH Units (7.350-7.450) 12/30/19 04:23 ABG pCO2 36.6 mm Hg 12/30/19 04:23 ABG pO2 89.9 mm Hg (80.0-90.0) 12/30/19 04:23 ABG O2 Saturation 97.3 % (95.0-99.0) 12/30/19 04:23 PT/INR, D-dimer PT 17.0 Sec. (12.2-14.9) H 11/23/19 03:47 INR 1.36 (0.87-1.13) H 11/23/19 03:47 Abnormal lab findings: Abnormal Labs 11/22/19 11/22/19 11/22/19 23:17 23:18 23:27 WBC 21.2 H RBC 3.59 L Hgb 9.8 L Hct MCH 27 L RDW 18.6 H Plt Count 454 H Lymph % (Auto) [place] % (Auto) [place] # Baso # Seg Neutrophils % Seg Neuts % (Manual) 86.0 H Lymphocytes % (Manual) 9.0 L Monocytes % (Manual) Seg Neutrophils # Seg Neutrophils # Man 18.2 H Lymphocytes # (Manual) Monocytes # (Manual) 1.1 H Eosinophils # (Manual) Basophils # (Manual) PT INR APTT ABG pH ABG pO2 ABG HCO3 ABG O2 Saturation ABG Base Excess ABG Hemoglobin Oxyhemoglobin Sodium Potassium Chloride Carbon Dioxide BUN Creatinine Glucose POC Glucose 53 L Lactic Acid Calcium Ionized Calcium Phosphorus Magnesium Total Bilirubin AST ALT Alkaline Phosphatase Ammonia Total Creatine Kinase CK-MB (CK-2) CK-MB (CK-2) Rel Index Total Protein Albumin Urine WBC (Auto) 40.0 H Vancomycin Trough Salicylates Acetaminophen Plasma/Serum Alcohol Crossmatch 11/22/19 11/22/19 11/22/19 23:27 23:27 23:27 WBC RBC Hgb Hct MCH RDW Plt Count Lymph % (Auto) [place] % (Auto) [place] # Baso # Seg Neutrophils % Seg Neuts % (Manual) Lymphocytes % (Manual) Monocytes % (Manual) Seg Neutrophils # Seg Neutrophils # Man Lymphocytes # (Manual) Monocytes # (Manual) Eosinophils # (Manual) Basophils # (Manual) PT INR APTT ABG pH ABG pO2 ABG HCO3 ABG O2 Saturation ABG Base Excess ABG Hemoglobin Oxyhemoglobin Sodium Potassium 2.4 L* Chloride 85.1 L Carbon Dioxide 19 L BUN Creatinine 0.5 L Glucose 261 H POC Glucose Lactic Acid Calcium Ionized Calcium Phosphorus Magnesium Total Bilirubin AST 609 H ALT 152 H Alkaline Phosphatase 160 H Ammonia 117.0 H Total Creatine Kinase 139 H CK-MB (CK-2) 8.3 H CK-MB (CK-2) Rel Index 5.9 H Total Protein Albumin 3.6 L Urine WBC (Auto) Vancomycin Trough Salicylates < 0.3 L Acetaminophen Plasma/Serum Alcohol Crossmatch 11/22/19 11/22/19 11/23/19 23:27 23:27 01:10 WBC RBC Hgb Hct MCH RDW Plt Count Lymph % (Auto) [place] % (Auto) [place] # Baso # Seg Neutrophils % Seg Neuts % (Manual) Lymphocytes % (Manual) Monocytes % (Manual) Seg Neutrophils # Seg Neutrophils # Man Lymphocytes # (Manual) Monocytes # (Manual) Eosinophils # (Manual) Basophils # (Manual) PT INR APTT ABG pH 7.273 L ABG pO2 209.7 H ABG HCO3 ABG O2 Saturation 99.2 H ABG Base Excess -3.9 L ABG Hemoglobin 10.6 L Oxyhemoglobin 93.9 L Sodium Potassium Chloride Carbon Dioxide BUN Creatinine Glucose POC Glucose Lactic Acid Calcium Ionized Calcium Phosphorus Magnesium Total Bilirubin AST ALT Alkaline Phosphatase Ammonia Total Creatine Kinase CK-MB (CK-2) CK-MB (CK-2) Rel Index Total Protein Albumin Urine WBC (Auto) Vancomycin Trough Salicylates Acetaminophen < 5.0 L Plasma/Serum Alcohol 0.08 H Crossmatch 11/23/19 11/23/19 11/23/19 01:19 01:19 03:47 WBC RBC Hgb Hct MCH RDW Plt Count Lymph % (Auto) [place] % (Auto) [place] # Baso # Seg Neutrophils % Seg Neuts % (Manual) Lymphocytes % (Manual) Monocytes % (Manual) Seg Neutrophils # Seg Neutrophils # Man Lymphocytes # (Manual) Monocytes # (Manual) Eosinophils # (Manual) Basophils # (Manual) PT 16.3 H INR 1.29 H APTT ABG pH ABG pO2 ABG HCO3 ABG O2 Saturation ABG Base Excess ABG Hemoglobin Oxyhemoglobin Sodium Potassium Chloride Carbon Dioxide BUN Creatinine Glucose POC Glucose Lactic Acid 2.10 H* 5.00 H* Calcium Ionized Calcium Phosphorus Magnesium Total Bilirubin AST ALT Alkaline Phosphatase Ammonia Total Creatine Kinase CK-MB (CK-2) CK-MB (CK-2) Rel Index Total Protein Albumin Urine WBC (Auto) Vancomycin Trough Salicylates Acetaminophen Plasma/Serum Alcohol Crossmatch 11/23/19 11/23/19 11/23/19 03:47 03:47 04:53 WBC RBC Hgb 9.4 L Hct MCH RDW Plt Count Lymph % (Auto) [place] % (Auto) [place] # Baso # Seg Neutrophils % Seg Neuts % (Manual) Lymphocytes % (Manual) Monocytes % (Manual) Seg Neutrophils # Seg Neutrophils # Man Lymphocytes # (Manual) Monocytes # (Manual) Eosinophils # (Manual) Basophils # (Manual) PT 17.0 H INR 1.36 H APTT 128.2 H* ABG pH ABG pO2 ABG HCO3 ABG O2 Saturation ABG Base Excess ABG Hemoglobin Oxyhemoglobin Sodium Potassium Chloride Carbon Dioxide 18 L BUN Creatinine 0.5 L Glucose 105 H POC Glucose Lactic Acid Calcium 8.3 L Ionized Calcium Phosphorus 2.40 L Magnesium Total Bilirubin 1.30 H AST 761 H ALT 158 H Alkaline Phosphatase 143 H Ammonia Total Creatine Kinase CK-MB (CK-2) CK-MB (CK-2) Rel Index Total Protein Albumin 2.8 L Urine WBC (Auto) Vancomycin Trough Salicylates Acetaminophen Plasma/Serum Alcohol Crossmatch 11/23/19 11/23/19 11/23/19 05:12 06:32 06:32 WBC 16.8 H RBC 3.31 L Hgb 8.9 L Hct 28.7 L MCH 27 L RDW 18.6 H Plt Count Lymph % (Auto) [place] % (Auto) [place] # Baso # Seg Neutrophils % Seg Neuts % (Manual) 94.0 H Lymphocytes % (Manual) 1.0 L Monocytes % (Manual) Seg Neutrophils # Seg Neutrophils # Man 15.8 H Lymphocytes # (Manual) 0.2 L Monocytes # (Manual) Eosinophils # (Manual) Basophils # (Manual) PT INR APTT ABG pH ABG pO2 ABG HCO3 ABG O2 Saturation ABG Base Excess -3.2 L ABG Hemoglobin 9.0 L Oxyhemoglobin 93.6 L Sodium Potassium Chloride Carbon Dioxide BUN Creatinine Glucose POC Glucose Lactic Acid Calcium Ionized Calcium 4.5 L Phosphorus Magnesium Total Bilirubin AST ALT Alkaline Phosphatase Ammonia Total Creatine Kinase CK-MB (CK-2) CK-MB (CK-2) Rel Index Total Protein Albumin Urine WBC (Auto) Vancomycin Trough Salicylates Acetaminophen Plasma/Serum Alcohol Crossmatch 11/23/19 11/24/19 11/24/19 06:32 04:35 04:35 WBC RBC Hgb Hct MCH RDW Plt Count Lymph % (Auto) [place] % (Auto) [place] # Baso # Seg Neutrophils % Seg Neuts % (Manual) Lymphocytes % (Manual) Monocytes % (Manual) Seg Neutrophils # Seg Neutrophils # Man Lymphocytes # (Manual) Monocytes # (Manual) Eosinophils # (Manual) Basophils # (Manual) PT INR APTT ABG pH ABG pO2 ABG HCO3 ABG O2 Saturation ABG Base Excess ABG Hemoglobin Oxyhemoglobin Sodium Potassium Chloride Carbon Dioxide BUN Creatinine Glucose POC Glucose Lactic Acid 3.30 H* Calcium Ionized Calcium Phosphorus Magnesium 1.40 L Total Bilirubin AST ALT Alkaline Phosphatase Ammonia 98.0 H Total Creatine Kinase CK-MB (CK-2) CK-MB (CK-2) Rel Index Total Protein Albumin Urine WBC (Auto) Vancomycin Trough Salicylates Acetaminophen Plasma/Serum Alcohol Crossmatch 11/24/19 11/25/19 11/25/19 05:22 04:34 05:05 WBC 17.3 H RBC 2.88 L Hgb 7.8 L Hct 24.6 L MCH 27 L RDW 18.5 H Plt Count Lymph % (Auto) 7.7 L [place] % (Auto) 9.7 H [place] # 1.7 H Baso # Seg Neutrophils % 82.2 H Seg Neuts % (Manual) Lymphocytes % (Manual) Monocytes % (Manual) Seg Neutrophils # 14.2 H Seg Neutrophils # Man Lymphocytes # (Manual) Monocytes # (Manual) Eosinophils # (Manual) Basophils # (Manual) PT INR APTT ABG pH 7.475 H ABG pO2 ABG HCO3 29.4 H 32.3 H ABG O2 Saturation ABG Base Excess 5.4 H 6.9 H ABG Hemoglobin 9.0 L 10.6 L Oxyhemoglobin 94.3 L Sodium Potassium Chloride Carbon Dioxide BUN Creatinine Glucose POC Glucose Lactic Acid Calcium Ionized Calcium Phosphorus Magnesium Total Bilirubin AST ALT Alkaline Phosphatase Ammonia Total Creatine Kinase CK-MB (CK-2) CK-MB (CK-2) Rel Index Total Protein Albumin Urine WBC (Auto) Vancomycin Trough Salicylates Acetaminophen Plasma/Serum Alcohol Crossmatch 11/25/19 11/25/19 11/26/19 05:05 22:46 03:31 WBC RBC Hgb Hct MCH RDW Plt Count Lymph % (Auto) [place] % (Auto) [place] # Baso # Seg Neutrophils % Seg Neuts % (Manual) Lymphocytes % (Manual) Monocytes % (Manual) Seg Neutrophils # Seg Neutrophils # Man Lymphocytes # (Manual) Monocytes # (Manual) Eosinophils # (Manual) Basophils # (Manual) PT INR APTT ABG pH 7.459 H ABG pO2 ABG HCO3 34.2 H ABG O2 Saturation ABG Base Excess 9.4 H ABG Hemoglobin 7.6 L Oxyhemoglobin 94.8 L Sodium 152 H D 147 H Potassium 2.3 L* D 2.8 L* D Chloride 107.8 H Carbon Dioxide 31 H D 33 H BUN Creatinine 0.6 L 0.6 L Glucose 148 H 177 H POC Glucose Lactic Acid Calcium Ionized Calcium Phosphorus Magnesium Total Bilirubin AST 105 H ALT 71 H Alkaline Phosphatase 155 H Ammonia Total Creatine Kinase CK-MB (CK-2) CK-MB (CK-2) Rel Index Total Protein 5.2 L D Albumin 2.9 L Urine WBC (Auto) Vancomycin Trough Salicylates Acetaminophen Plasma/Serum Alcohol Crossmatch 11/26/19 11/26/19 11/27/19 08:24 08:24 04:20 WBC 12.0 H RBC 3.00 L Hgb 8.0 L 9.3 L Hct 25.9 L 29.7 L MCH 27 L RDW 18.5 H Plt Count Lymph % (Auto) [place] % (Auto) [place] # Baso # Seg Neutrophils % Seg Neuts % (Manual) 89.0 H Lymphocytes % (Manual) 4.0 L Monocytes % (Manual) Seg Neutrophils # Seg Neutrophils # Man 10.7 H Lymphocytes # (Manual) 0.5 L Monocytes # (Manual) Eosinophils # (Manual) Basophils # (Manual) PT INR APTT ABG pH ABG pO2 ABG HCO3 ABG O2 Saturation ABG Base Excess ABG Hemoglobin Oxyhemoglobin Sodium 146 H Potassium 3.4 L D Chloride Carbon Dioxide BUN Creatinine 0.5 L Glucose 165 H POC Glucose Lactic Acid Calcium Ionized Calcium Phosphorus Magnesium Total Bilirubin AST 57 H ALT Alkaline Phosphatase 166 H Ammonia Total Creatine Kinase CK-MB (CK-2) CK-MB (CK-2) Rel Index Total Protein Albumin 2.9 L Urine WBC (Auto) Vancomycin Trough Salicylates Acetaminophen Plasma/Serum Alcohol Crossmatch 11/27/19 11/27/19 11/27/19 04:28 04:28 04:42 WBC RBC Hgb Hct MCH RDW Plt Count Lymph % (Auto) [place] % (Auto) [place] # Baso # Seg Neutrophils % Seg Neuts % (Manual) Lymphocytes % (Manual) Monocytes % (Manual) Seg Neutrophils # Seg Neutrophils # Man Lymphocytes # (Manual) Monocytes # (Manual) Eosinophils # (Manual) Basophils # (Manual) PT INR APTT ABG pH 7.470 H ABG pO2 74.0 L ABG HCO3 33.8 H ABG O2 Saturation ABG Base Excess 9.1 H ABG Hemoglobin 8.7 L Oxyhemoglobin 94.7 L Sodium 146 H Potassium 2.9 L* Chloride Carbon Dioxide BUN 25 H Creatinine Glucose 213 H POC Glucose Lactic Acid Calcium Ionized Calcium Phosphorus 1.00 L Magnesium Total Bilirubin AST ALT Alkaline Phosphatase Ammonia Total Creatine Kinase CK-MB (CK-2) CK-MB (CK-2) Rel Index Total Protein Albumin Urine WBC (Auto) Vancomycin Trough Salicylates Acetaminophen Plasma/Serum Alcohol Crossmatch 11/27/19 11/27/19 11/27/19 05:37 12:20 15:46 WBC RBC Hgb Hct MCH RDW Plt Count Lymph % (Auto) [place] % (Auto) [place] # Baso # Seg Neutrophils % Seg Neuts % (Manual) Lymphocytes % (Manual) Monocytes % (Manual) Seg Neutrophils # Seg Neutrophils # Man Lymphocytes # (Manual) Monocytes # (Manual) Eosinophils # (Manual) Basophils # (Manual) PT INR APTT ABG pH ABG pO2 ABG HCO3 ABG O2 Saturation ABG Base Excess ABG Hemoglobin Oxyhemoglobin Sodium 146 H Potassium 3.5 L D Chloride Carbon Dioxide BUN 24 H Creatinine 0.6 L Glucose 187 H POC Glucose 117 H 220 H Lactic Acid Calcium Ionized Calcium Phosphorus Magnesium Total Bilirubin AST ALT Alkaline Phosphatase Ammonia Total Creatine Kinase CK-MB (CK-2) CK-MB (CK-2) Rel Index Total Protein Albumin Urine WBC (Auto) Vancomycin Trough Salicylates Acetaminophen Plasma/Serum Alcohol Crossmatch 11/27/19 11/28/19 11/28/19 17:28 05:00 05:02 WBC RBC Hgb Hct MCH RDW Plt Count Lymph % (Auto) [place] % (Auto) [place] # Baso # Seg Neutrophils % Seg Neuts % (Manual) Lymphocytes % (Manual) Monocytes % (Manual) Seg Neutrophils # Seg Neutrophils # Man Lymphocytes # (Manual) Monocytes # (Manual) Eosinophils # (Manual) Basophils # (Manual) PT INR APTT ABG pH ABG pO2 72.4 L ABG HCO3 33.6 H ABG O2 Saturation 94.1 L ABG Base Excess 7.3 H ABG Hemoglobin Oxyhemoglobin 91.8 L Sodium 146 H Potassium 3.3 L Chloride Carbon Dioxide BUN 25 H Creatinine 0.6 L Glucose 176 H POC Glucose 198 H Lactic Acid Calcium Ionized Calcium Phosphorus Magnesium Total Bilirubin AST ALT Alkaline Phosphatase Ammonia Total Creatine Kinase CK-MB (CK-2) CK-MB (CK-2) Rel Index Total Protein Albumin Urine WBC (Auto) Vancomycin Trough Salicylates Acetaminophen Plasma/Serum Alcohol Crossmatch 11/28/19 11/28/19 11/29/19 05:02 18:55 10:43 WBC 15.2 H 19.0 H RBC 3.06 L 3.01 L Hgb 8.3 L 8.3 L Hct 27.0 L 26.4 L MCH 27 L RDW 19.0 H 19.7 H Plt Count 479 H 611 H Lymph % (Auto) [place] % (Auto) [place] # Baso # Seg Neutrophils % Seg Neuts % (Manual) 92.0 H Lymphocytes % (Manual) 2.0 L Monocytes % (Manual) Seg Neutrophils # Seg Neutrophils # Man 14.0 H Lymphocytes # (Manual) 0.3 L Monocytes # (Manual) Eosinophils # (Manual) Basophils # (Manual) PT INR APTT ABG pH ABG pO2 ABG HCO3 ABG O2 Saturation ABG Base Excess ABG Hemoglobin Oxyhemoglobin Sodium Potassium Chloride Carbon Dioxide BUN Creatinine Glucose POC Glucose 138 H Lactic Acid Calcium Ionized Calcium Phosphorus Magnesium Total Bilirubin AST ALT Alkaline Phosphatase Ammonia Total Creatine Kinase CK-MB (CK-2) CK-MB (CK-2) Rel Index Total Protein Albumin Urine WBC (Auto) Vancomycin Trough Salicylates Acetaminophen Plasma/Serum Alcohol Crossmatch 11/29/19 11/29/19 11/29/19 10:43 12:27 19:25 WBC RBC Hgb Hct MCH RDW Plt Count Lymph % (Auto) [place] % (Auto) [place] # Baso # Seg Neutrophils % Seg Neuts % (Manual) Lymphocytes % (Manual) Monocytes % (Manual) Seg Neutrophils # Seg Neutrophils # Man Lymphocytes # (Manual) Monocytes # (Manual) Eosinophils # (Manual) Basophils # (Manual) PT INR APTT ABG pH ABG pO2 ABG HCO3 ABG O2 Saturation ABG Base Excess ABG Hemoglobin Oxyhemoglobin Sodium Potassium 2.8 L* Chloride Carbon Dioxide BUN 20 H Creatinine 0.5 L Glucose 121 H POC Glucose 128 H 120 H Lactic Acid Calcium Ionized Calcium Phosphorus Magnesium Total Bilirubin AST ALT Alkaline Phosphatase Ammonia Total Creatine Kinase CK-MB (CK-2) CK-MB (CK-2) Rel Index Total Protein Albumin Urine WBC (Auto) Vancomycin Trough Salicylates Acetaminophen Plasma/Serum Alcohol Crossmatch 11/29/19 11/30/19 11/30/19 23:46 04:10 05:02 WBC RBC Hgb Hct MCH RDW Plt Count Lymph % (Auto) [place] % (Auto) [place] # Baso # Seg Neutrophils % Seg Neuts % (Manual) Lymphocytes % (Manual) Monocytes % (Manual) Seg Neutrophils # Seg Neutrophils # Man Lymphocytes # (Manual) Monocytes # (Manual) Eosinophils # (Manual) Basophils # (Manual) PT INR APTT ABG pH ABG pO2 76.3 L ABG HCO3 32.5 H ABG O2 Saturation ABG Base Excess 6.9 H ABG Hemoglobin 8.0 L Oxyhemoglobin 92.6 L Sodium Potassium Chloride Carbon Dioxide BUN Creatinine Glucose POC Glucose 116 H 128 H Lactic Acid Calcium Ionized Calcium Phosphorus Magnesium Total Bilirubin AST ALT Alkaline Phosphatase Ammonia Total Creatine Kinase CK-MB (CK-2) CK-MB (CK-2) Rel Index Total Protein Albumin Urine WBC (Auto) Vancomycin Trough Salicylates Acetaminophen Plasma/Serum Alcohol Crossmatch 11/30/19 11/30/19 11/30/19 05:25 05:25 12:59 WBC 18.4 H RBC 3.10 L Hgb 8.5 L Hct 27.5 L MCH 27 L RDW 20.9 H Plt Count 691 H Lymph % (Auto) 7.1 L [place] % (Auto) 7.7 H [place] # 1.4 H Baso # Seg Neutrophils % 83.4 H Seg Neuts % (Manual) Lymphocytes % (Manual) Monocytes % (Manual) Seg Neutrophils # 15.4 H Seg Neutrophils # Man Lymphocytes # (Manual) Monocytes # (Manual) Eosinophils # (Manual) Basophils # (Manual) PT INR APTT ABG pH ABG pO2 ABG HCO3 ABG O2 Saturation ABG Base Excess ABG Hemoglobin Oxyhemoglobin Sodium 146 H Potassium Chloride 107.2 H Carbon Dioxide BUN Creatinine 0.5 L Glucose 132 H POC Glucose 124 H Lactic Acid Calcium Ionized Calcium Phosphorus Magnesium Total Bilirubin AST 246 H ALT 274 H Alkaline Phosphatase 203 H Ammonia Total Creatine Kinase CK-MB (CK-2) CK-MB (CK-2) Rel Index Total Protein 5.4 L Albumin 2.9 L Urine WBC (Auto) Vancomycin Trough Salicylates Acetaminophen Plasma/Serum Alcohol Crossmatch 11/30/19 12/01/19 12/01/19 17:53 00:05 05:10 WBC RBC Hgb Hct MCH RDW Plt Count Lymph % (Auto) [place] % (Auto) [place] # Baso # Seg Neutrophils % Seg Neuts % (Manual) Lymphocytes % (Manual) Monocytes % (Manual) Seg Neutrophils # Seg Neutrophils # Man Lymphocytes # (Manual) Monocytes # (Manual) Eosinophils # (Manual) Basophils # (Manual) PT INR APTT ABG pH ABG pO2 ABG HCO3 ABG O2 Saturation ABG Base Excess ABG Hemoglobin Oxyhemoglobin Sodium Potassium Chloride Carbon Dioxide BUN Creatinine Glucose POC Glucose 113 H 143 H 145 H Lactic Acid Calcium Ionized Calcium Phosphorus Magnesium Total Bilirubin AST ALT Alkaline Phosphatase Ammonia Total Creatine Kinase CK-MB (CK-2) CK-MB (CK-2) Rel Index Total Protein Albumin Urine WBC (Auto) Vancomycin Trough Salicylates Acetaminophen Plasma/Serum Alcohol Crossmatch 03/14/20 03/14/20 03/14/20 05:33 08:23 08:23 WBC 22.7 H RBC 2.88 L Hgb 7.9 L Hct 25.2 L MCH 27 L RDW 21.0 H Plt Count 732 H Lymph % (Auto) [place] % (Auto) [place] # Baso # Seg Neutrophils % Seg Neuts % (Manual) 91.0 H Lymphocytes % (Manual) 3.0 L Monocytes % (Manual) Seg Neutrophils # Seg Neutrophils # Man 20.7 H Lymphocytes # (Manual) 0.7 L Monocytes # (Manual) 1.1 H Eosinophils # (Manual) Basophils # (Manual) PT INR APTT ABG pH ABG pO2 68.6 L ABG HCO3 34.1 H ABG O2 Saturation ABG Base Excess 9.0 H ABG Hemoglobin 6.5 L Oxyhemoglobin 94.7 L Sodium Potassium Chloride Carbon Dioxide BUN Creatinine 0.5 L Glucose 125 H POC Glucose Lactic Acid Calcium Ionized Calcium Phosphorus Magnesium Total Bilirubin AST ALT Alkaline Phosphatase Ammonia Total Creatine Kinase CK-MB (CK-2) CK-MB (CK-2) Rel Index Total Protein Albumin Urine WBC (Auto) Vancomycin Trough Salicylates Acetaminophen Plasma/Serum Alcohol Crossmatch 12/01/19 12/01/19 12/01/19 13:21 17:54 20:59 WBC RBC Hgb Hct MCH RDW Plt Count Lymph % (Auto) [place] % (Auto) [place] # Baso # Seg Neutrophils % Seg Neuts % (Manual) Lymphocytes % (Manual) Monocytes % (Manual) Seg Neutrophils # Seg Neutrophils # Man Lymphocytes # (Manual) Monocytes # (Manual) Eosinophils # (Manual) Basophils # (Manual) PT INR APTT ABG pH ABG pO2 78.3 L ABG HCO3 33.8 H ABG O2 Saturation 94.9 L ABG Base Excess 7.9 H ABG Hemoglobin 11.5 L Oxyhemoglobin 92.3 L Sodium Potassium Chloride Carbon Dioxide BUN Creatinine Glucose POC Glucose 111 H 115 H Lactic Acid Calcium Ionized Calcium Phosphorus Magnesium Total Bilirubin AST ALT Alkaline Phosphatase Ammonia Total Creatine Kinase CK-MB (CK-2) CK-MB (CK-2) Rel Index Total Protein Albumin Urine WBC (Auto) Vancomycin Trough Salicylates Acetaminophen Plasma/Serum Alcohol Crossmatch 12/02/19 12/03/19 12/04/19 12:55 20:00 04:26 WBC 15.2 H RBC 2.69 L Hgb 7.4 L Hct 23.6 L MCH 27 L RDW 19.9 H Plt Count 838 H Lymph % (Auto) [place] % (Auto) [place] # Baso # Seg Neutrophils % Seg Neuts % (Manual) Lymphocytes % (Manual) Monocytes % (Manual) Seg Neutrophils # Seg Neutrophils # Man Lymphocytes # (Manual) Monocytes # (Manual) Eosinophils # (Manual) Basophils # (Manual) PT INR APTT ABG pH ABG pO2 68.3 L ABG HCO3 33.5 H ABG O2 Saturation 93.5 L ABG Base Excess 8.4 H ABG Hemoglobin 7.3 L Oxyhemoglobin 90.9 L Sodium Potassium Chloride Carbon Dioxide BUN Creatinine Glucose POC Glucose 107 H Lactic Acid Calcium Ionized Calcium Phosphorus Magnesium Total Bilirubin AST ALT Alkaline Phosphatase Ammonia Total Creatine Kinase CK-MB (CK-2) CK-MB (CK-2) Rel Index Total Protein Albumin Urine WBC (Auto) Vancomycin Trough Salicylates Acetaminophen Plasma/Serum Alcohol Crossmatch 12/04/19 12/04/19 12/04/19 04:26 07:45 12:02 WBC 15.9 H RBC 2.88 L Hgb 7.9 L Hct 25.1 L MCH RDW 20.4 H Plt Count 839 H Lymph % (Auto) 11.3 L [place] % (Auto) 15.2 H [place] # 2.4 H Baso # Seg Neutrophils % 72.4 H Seg Neuts % (Manual) Lymphocytes % (Manual) Monocytes % (Manual) Seg Neutrophils # 11.5 H Seg Neutrophils # Man Lymphocytes # (Manual) Monocytes # (Manual) Eosinophils # (Manual) Basophils # (Manual) PT INR APTT ABG pH ABG pO2 ABG HCO3 ABG O2 Saturation ABG Base Excess ABG Hemoglobin Oxyhemoglobin Sodium Potassium Chloride 96.5 L Carbon Dioxide BUN 21 H Creatinine 0.6 L Glucose 107 H POC Glucose 138 H Lactic Acid Calcium Ionized Calcium Phosphorus Magnesium Total Bilirubin AST ALT Alkaline Phosphatase Ammonia Total Creatine Kinase CK-MB (CK-2) CK-MB (CK-2) Rel Index Total Protein Albumin Urine WBC (Auto) Vancomycin Trough Salicylates Acetaminophen Plasma/Serum Alcohol Crossmatch 12/04/19 12/05/19 12/05/19 18:16 11:55 18:36 WBC RBC Hgb Hct MCH RDW Plt Count Lymph % (Auto) [place] % (Auto) [place] # Baso # Seg Neutrophils % Seg Neuts % (Manual) Lymphocytes % (Manual) Monocytes % (Manual) Seg Neutrophils # Seg Neutrophils # Man Lymphocytes # (Manual) Monocytes # (Manual) Eosinophils # (Manual) Basophils # (Manual) PT INR APTT ABG pH ABG pO2 ABG HCO3 ABG O2 Saturation ABG Base Excess ABG Hemoglobin Oxyhemoglobin Sodium Potassium Chloride Carbon Dioxide BUN Creatinine Glucose POC Glucose 135 H 125 H 135 H Lactic Acid Calcium Ionized Calcium Phosphorus Magnesium Total Bilirubin AST ALT Alkaline Phosphatase Ammonia Total Creatine Kinase CK-MB (CK-2) CK-MB (CK-2) Rel Index Total Protein Albumin Urine WBC (Auto) Vancomycin Trough Salicylates Acetaminophen Plasma/Serum Alcohol Crossmatch 12/05/19 12/06/19 12/06/19 23:30 04:14 05:43 WBC RBC Hgb Hct MCH RDW Plt Count Lymph % (Auto) [place] % (Auto) [place] # Baso # Seg Neutrophils % Seg Neuts % (Manual) Lymphocytes % (Manual) Monocytes % (Manual) Seg Neutrophils # Seg Neutrophils # Man Lymphocytes # (Manual) Monocytes # (Manual) Eosinophils # (Manual) Basophils # (Manual) PT INR APTT ABG pH ABG pO2 ABG HCO3 ABG O2 Saturation ABG Base Excess ABG Hemoglobin Oxyhemoglobin Sodium Potassium 5.6 H Chloride 95.0 L Carbon Dioxide BUN 48 H Creatinine 1.3 H D Glucose POC Glucose 126 H 121 H Lactic Acid Calcium Ionized Calcium Phosphorus Magnesium Total Bilirubin AST 89 H ALT 98 H Alkaline Phosphatase 476 H Ammonia Total Creatine Kinase CK-MB (CK-2) CK-MB (CK-2) Rel Index Total Protein Albumin 2.8 L Urine WBC (Auto) Vancomycin Trough Salicylates Acetaminophen Plasma/Serum Alcohol Crossmatch 12/06/19 12/06/19 12/07/19 10:39 14:34 00:19 WBC 17.3 H RBC 2.60 L Hgb 7.1 L Hct 22.7 L MCH 27 L RDW 20.1 H Plt Count 832 H Lymph % (Auto) [place] % (Auto) [place] # Baso # Seg Neutrophils % Seg Neuts % (Manual) Lymphocytes % (Manual) Monocytes % (Manual) Seg Neutrophils # Seg Neutrophils # Man Lymphocytes # (Manual) Monocytes # (Manual) Eosinophils # (Manual) Basophils # (Manual) PT INR APTT ABG pH ABG pO2 ABG HCO3 ABG O2 Saturation ABG Base Excess ABG Hemoglobin Oxyhemoglobin Sodium Potassium Chloride Carbon Dioxide BUN Creatinine Glucose POC Glucose 128 H 136 H Lactic Acid Calcium Ionized Calcium Phosphorus Magnesium Total Bilirubin AST ALT Alkaline Phosphatase Ammonia Total Creatine Kinase CK-MB (CK-2) CK-MB (CK-2) Rel Index Total Protein Albumin Urine WBC (Auto) Vancomycin Trough Salicylates Acetaminophen Plasma/Serum Alcohol Crossmatch 12/07/19 12/07/19 12/07/19 03:44 03:44 05:53 WBC 16.2 H RBC 2.56 L Hgb 7.1 L Hct 22.3 L MCH RDW 19.4 H Plt Count 782 H Lymph % (Auto) [place] % (Auto) [place] # Baso # Seg Neutrophils % Seg Neuts % (Manual) Lymphocytes % (Manual) Monocytes % (Manual) Seg Neutrophils # Seg Neutrophils # Man Lymphocytes # (Manual) Monocytes # (Manual) Eosinophils # (Manual) Basophils # (Manual) PT INR APTT ABG pH ABG pO2 ABG HCO3 ABG O2 Saturation ABG Base Excess ABG Hemoglobin Oxyhemoglobin Sodium Potassium Chloride 95.6 L Carbon Dioxide BUN 56 H Creatinine 1.4 H Glucose 120 H POC Glucose 128 H Lactic Acid Calcium 10.3 H Ionized Calcium Phosphorus Magnesium Total Bilirubin AST ALT Alkaline Phosphatase Ammonia Total Creatine Kinase CK-MB (CK-2) CK-MB (CK-2) Rel Index Total Protein Albumin Urine WBC (Auto) Vancomycin Trough Salicylates Acetaminophen Plasma/Serum Alcohol Crossmatch 12/07/19 12/07/19 12/08/19 12:54 23:47 00:20 WBC RBC Hgb Hct MCH RDW Plt Count Lymph % (Auto) [place] % (Auto) [place] # Baso # Seg Neutrophils % Seg Neuts % (Manual) Lymphocytes % (Manual) Monocytes % (Manual) Seg Neutrophils # Seg Neutrophils # Man Lymphocytes # (Manual) Monocytes # (Manual) Eosinophils # (Manual) Basophils # (Manual) PT INR APTT ABG pH ABG pO2 ABG HCO3 ABG O2 Saturation ABG Base Excess ABG Hemoglobin Oxyhemoglobin Sodium Potassium Chloride Carbon Dioxide BUN Creatinine Glucose POC Glucose 128 H 130 H 124 H Lactic Acid Calcium Ionized Calcium Phosphorus Magnesium Total Bilirubin AST ALT Alkaline Phosphatase Ammonia Total Creatine Kinase CK-MB (CK-2) CK-MB (CK-2) Rel Index Total Protein Albumin Urine WBC (Auto) Vancomycin Trough Salicylates Acetaminophen Plasma/Serum Alcohol Crossmatch 12/08/19 12/08/19 12/08/19 06:38 12:04 18:26 WBC RBC Hgb Hct MCH RDW Plt Count Lymph % (Auto) [place] % (Auto) [place] # Baso # Seg Neutrophils % Seg Neuts % (Manual) Lymphocytes % (Manual) Monocytes % (Manual) Seg Neutrophils # Seg Neutrophils # Man Lymphocytes # (Manual) Monocytes # (Manual) Eosinophils # (Manual) Basophils # (Manual) PT INR APTT ABG pH ABG pO2 ABG HCO3 ABG O2 Saturation ABG Base Excess ABG Hemoglobin Oxyhemoglobin Sodium Potassium Chloride Carbon Dioxide BUN Creatinine Glucose POC Glucose 137 H 129 H 150 H Lactic Acid Calcium Ionized Calcium Phosphorus Magnesium Total Bilirubin AST ALT Alkaline Phosphatase Ammonia Total Creatine Kinase CK-MB (CK-2) CK-MB (CK-2) Rel Index Total Protein Albumin Urine WBC (Auto) Vancomycin Trough Salicylates Acetaminophen Plasma/Serum Alcohol Crossmatch 12/09/19 12/09/19 12/09/19 00:56 05:34 06:13 WBC RBC Hgb Hct MCH RDW Plt Count Lymph % (Auto) [place] % (Auto) [place] # Baso # Seg Neutrophils % Seg Neuts % (Manual) Lymphocytes % (Manual) Monocytes % (Manual) Seg Neutrophils # Seg Neutrophils # Man Lymphocytes # (Manual) Monocytes # (Manual) Eosinophils # (Manual) Basophils # (Manual) PT INR APTT ABG pH ABG pO2 ABG HCO3 ABG O2 Saturation ABG Base Excess ABG Hemoglobin Oxyhemoglobin Sodium 146 H Potassium Chloride Carbon Dioxide BUN 66 H Creatinine 1.9 H Glucose 116 H POC Glucose 130 H 130 H Lactic Acid Calcium Ionized Calcium Phosphorus Magnesium Total Bilirubin AST ALT Alkaline Phosphatase Ammonia Total Creatine Kinase CK-MB (CK-2) CK-MB (CK-2) Rel Index Total Protein Albumin Urine WBC (Auto) Vancomycin Trough Salicylates Acetaminophen Plasma/Serum Alcohol Crossmatch 12/09/19 12/09/19 12/10/19 11:52 17:50 00:14 WBC RBC Hgb Hct MCH RDW Plt Count Lymph % (Auto) [place] % (Auto) [place] # Baso # Seg Neutrophils % Seg Neuts % (Manual) Lymphocytes % (Manual) Monocytes % (Manual) Seg Neutrophils # Seg Neutrophils # Man Lymphocytes # (Manual) Monocytes # (Manual) Eosinophils # (Manual) Basophils # (Manual) PT INR APTT ABG pH ABG pO2 ABG HCO3 ABG O2 Saturation ABG Base Excess ABG Hemoglobin Oxyhemoglobin Sodium Potassium Chloride Carbon Dioxide BUN Creatinine Glucose POC Glucose 135 H 120 H 116 H Lactic Acid Calcium Ionized Calcium Phosphorus Magnesium Total Bilirubin AST ALT Alkaline Phosphatase Ammonia Total Creatine Kinase CK-MB (CK-2) CK-MB (CK-2) Rel Index Total Protein Albumin Urine WBC (Auto) Vancomycin Trough Salicylates Acetaminophen Plasma/Serum Alcohol Crossmatch 12/10/19 12/10/19 12/10/19 05:38 11:38 17:34 WBC RBC Hgb Hct MCH RDW Plt Count Lymph % (Auto) [place] % (Auto) [place] # Baso # Seg Neutrophils % Seg Neuts % (Manual) Lymphocytes % (Manual) Monocytes % (Manual) Seg Neutrophils # Seg Neutrophils # Man Lymphocytes # (Manual) Monocytes # (Manual) Eosinophils # (Manual) Basophils # (Manual) PT INR APTT ABG pH ABG pO2 ABG HCO3 ABG O2 Saturation ABG Base Excess ABG Hemoglobin Oxyhemoglobin Sodium Potassium Chloride Carbon Dioxide BUN Creatinine Glucose POC Glucose 115 H 112 H 130 H Lactic Acid Calcium Ionized Calcium Phosphorus Magnesium Total Bilirubin AST ALT Alkaline Phosphatase Ammonia Total Creatine Kinase CK-MB (CK-2) CK-MB (CK-2) Rel Index Total Protein Albumin Urine WBC (Auto) Vancomycin Trough Salicylates Acetaminophen Plasma/Serum Alcohol Crossmatch 12/11/19 12/11/19 12/11/19 00:20 05:31 12:22 WBC RBC Hgb Hct MCH RDW Plt Count Lymph % (Auto) [place] % (Auto) [place] # Baso # Seg Neutrophils % Seg Neuts % (Manual) Lymphocytes % (Manual) Monocytes % (Manual) Seg Neutrophils # Seg Neutrophils # Man Lymphocytes # (Manual) Monocytes # (Manual) Eosinophils # (Manual) Basophils # (Manual) PT INR APTT ABG pH ABG pO2 ABG HCO3 ABG O2 Saturation ABG Base Excess ABG Hemoglobin Oxyhemoglobin Sodium Potassium Chloride Carbon Dioxide BUN Creatinine Glucose POC Glucose 124 H 132 H 128 H Lactic Acid Calcium Ionized Calcium Phosphorus Magnesium Total Bilirubin AST ALT Alkaline Phosphatase Ammonia Total Creatine Kinase CK-MB (CK-2) CK-MB (CK-2) Rel Index Total Protein Albumin Urine WBC (Auto) Vancomycin Trough Salicylates Acetaminophen Plasma/Serum Alcohol Crossmatch 12/11/19 12/11/19 12/12/19 18:04 23:42 03:51 WBC RBC Hgb Hct MCH RDW Plt Count Lymph % (Auto) [place] % (Auto) [place] # Baso # Seg Neutrophils % Seg Neuts % (Manual) Lymphocytes % (Manual) Monocytes % (Manual) Seg Neutrophils # Seg Neutrophils # Man Lymphocytes # (Manual) Monocytes # (Manual) Eosinophils # (Manual) Basophils # (Manual) PT INR APTT ABG pH ABG pO2 ABG HCO3 ABG O2 Saturation ABG Base Excess ABG Hemoglobin Oxyhemoglobin Sodium 149 H Potassium Chloride Carbon Dioxide 20 L D BUN 77 H Creatinine 2.8 H Glucose POC Glucose 133 H 154 H Lactic Acid Calcium Ionized Calcium Phosphorus Magnesium Total Bilirubin AST ALT Alkaline Phosphatase Ammonia Total Creatine Kinase CK-MB (CK-2) CK-MB (CK-2) Rel Index Total Protein Albumin Urine WBC (Auto) Vancomycin Trough Salicylates Acetaminophen Plasma/Serum Alcohol Crossmatch 12/12/19 12/12/19 12/12/19 05:18 05:26 10:30 WBC 18.0 H RBC 2.51 L Hgb 6.8 L Hct 22.0 L MCH 27 L RDW 19.9 H Plt Count 582 H Lymph % (Auto) [place] % (Auto) [place] # Baso # Seg Neutrophils % Seg Neuts % (Manual) Lymphocytes % (Manual) Monocytes % (Manual) Seg Neutrophils # Seg Neutrophils # Man Lymphocytes # (Manual) Monocytes # (Manual) Eosinophils # (Manual) Basophils # (Manual) PT INR APTT ABG pH ABG pO2 ABG HCO3 ABG O2 Saturation ABG Base Excess ABG Hemoglobin Oxyhemoglobin Sodium Potassium Chloride Carbon Dioxide BUN Creatinine Glucose POC Glucose 135 H Lactic Acid Calcium Ionized Calcium Phosphorus Magnesium Total Bilirubin AST ALT Alkaline Phosphatase Ammonia Total Creatine Kinase CK-MB (CK-2) CK-MB (CK-2) Rel Index Total Protein Albumin Urine WBC (Auto) Vancomycin Trough Salicylates Acetaminophen Plasma/Serum Alcohol Crossmatch See Detail 12/12/19 12/12/19 12/12/19 11:44 18:10 23:21 WBC RBC Hgb Hct MCH RDW Plt Count Lymph % (Auto) [place] % (Auto) [place] # Baso # Seg Neutrophils % Seg Neuts % (Manual) Lymphocytes % (Manual) Monocytes % (Manual) Seg Neutrophils # Seg Neutrophils # Man Lymphocytes # (Manual) Monocytes # (Manual) Eosinophils # (Manual) Basophils # (Manual) PT INR APTT ABG pH ABG pO2 ABG HCO3 ABG O2 Saturation ABG Base Excess ABG Hemoglobin Oxyhemoglobin Sodium Potassium Chloride Carbon Dioxide BUN Creatinine Glucose POC Glucose 108 H 107 H 126 H Lactic Acid Calcium Ionized Calcium Phosphorus Magnesium Total Bilirubin AST ALT Alkaline Phosphatase Ammonia Total Creatine Kinase CK-MB (CK-2) CK-MB (CK-2) Rel Index Total Protein Albumin Urine WBC (Auto) Vancomycin Trough Salicylates Acetaminophen Plasma/Serum Alcohol Crossmatch 12/13/19 12/13/19 12/13/19 05:41 07:48 07:48 WBC 38.3 H RBC 2.37 L Hgb 6.3 L Hct 20.9 L MCH 27 L RDW 20.2 H Plt Count 546 H Lymph % (Auto) [place] % (Auto) [place] # Baso # Seg Neutrophils % Seg Neuts % (Manual) 93.0 H Lymphocytes % (Manual) 1.0 L Monocytes % (Manual) Seg Neutrophils # Seg Neutrophils # Man 35.6 H Lymphocytes # (Manual) 0.4 L Monocytes # (Manual) Eosinophils # (Manual) Basophils # (Manual) 0.4 H PT INR APTT ABG pH ABG pO2 ABG HCO3 ABG O2 Saturation ABG Base Excess ABG Hemoglobin Oxyhemoglobin Sodium 152 H Potassium 3.1 L D Chloride 111.9 H Carbon Dioxide 21 L BUN 53 H Creatinine 1.9 H Glucose 141 H POC Glucose 128 H Lactic Acid Calcium Ionized Calcium Phosphorus Magnesium Total Bilirubin AST ALT Alkaline Phosphatase 316 H Ammonia Total Creatine Kinase CK-MB (CK-2) CK-MB (CK-2) Rel Index Total Protein Albumin 2.4 L Urine WBC (Auto) Vancomycin Trough Salicylates Acetaminophen Plasma/Serum Alcohol Crossmatch 12/13/19 12/13/19 12/14/19 18:17 23:19 05:36 WBC RBC Hgb Hct MCH RDW Plt Count Lymph % (Auto) [place] % (Auto) [place] # Baso # Seg Neutrophils % Seg Neuts % (Manual) Lymphocytes % (Manual) Monocytes % (Manual) Seg Neutrophils # Seg Neutrophils # Man Lymphocytes # (Manual) Monocytes # (Manual) Eosinophils # (Manual) Basophils # (Manual) PT INR APTT ABG pH ABG pO2 ABG HCO3 ABG O2 Saturation ABG Base Excess ABG Hemoglobin Oxyhemoglobin Sodium Potassium Chloride Carbon Dioxide BUN Creatinine Glucose POC Glucose 141 H 158 H 182 H Lactic Acid Calcium Ionized Calcium Phosphorus Magnesium Total Bilirubin AST ALT Alkaline Phosphatase Ammonia Total Creatine Kinase CK-MB (CK-2) CK-MB (CK-2) Rel Index Total Protein Albumin Urine WBC (Auto) Vancomycin Trough Salicylates Acetaminophen Plasma/Serum Alcohol Crossmatch 12/14/19 12/14/19 12/14/19 08:48 08:48 10:31 WBC 33.3 H RBC 2.70 L Hgb 7.9 L 8.0 L Hct 25.3 L 24.0 L MCH RDW 19.2 H Plt Count 476 H Lymph % (Auto) [place] % (Auto) [place] # Baso # Seg Neutrophils % Seg Neuts % (Manual) Lymphocytes % (Manual) Monocytes % (Manual) Seg Neutrophils # Seg Neutrophils # Man Lymphocytes # (Manual) Monocytes # (Manual) Eosinophils # (Manual) Basophils # (Manual) PT INR APTT ABG pH ABG pO2 ABG HCO3 ABG O2 Saturation ABG Base Excess ABG Hemoglobin Oxyhemoglobin Sodium 153 H Potassium 2.5 L* Chloride 114.9 H Carbon Dioxide 20 L BUN 38 H Creatinine 1.4 H Glucose 177 H POC Glucose Lactic Acid Calcium Ionized Calcium Phosphorus Magnesium Total Bilirubin AST ALT Alkaline Phosphatase Ammonia Total Creatine Kinase CK-MB (CK-2) CK-MB (CK-2) Rel Index Total Protein Albumin Urine WBC (Auto) Vancomycin Trough Salicylates Acetaminophen Plasma/Serum Alcohol Crossmatch 12/14/19 12/14/19 12/14/19 12:57 16:15 17:50 WBC RBC Hgb Hct MCH RDW Plt Count Lymph % (Auto) [place] % (Auto) [place] # Baso # Seg Neutrophils % Seg Neuts % (Manual) Lymphocytes % (Manual) Monocytes % (Manual) Seg Neutrophils # Seg Neutrophils # Man Lymphocytes # (Manual) Monocytes # (Manual) Eosinophils # (Manual) Basophils # (Manual) PT INR APTT ABG pH ABG pO2 73.6 L ABG HCO3 ABG O2 Saturation ABG Base Excess ABG Hemoglobin 7.6 L Oxyhemoglobin 94.0 L Sodium Potassium Chloride Carbon Dioxide BUN Creatinine Glucose POC Glucose 174 H 150 H Lactic Acid Calcium Ionized Calcium Phosphorus Magnesium Total Bilirubin AST ALT Alkaline Phosphatase Ammonia Total Creatine Kinase CK-MB (CK-2) CK-MB (CK-2) Rel Index Total Protein Albumin Urine WBC (Auto) Vancomycin Trough Salicylates Acetaminophen Plasma/Serum Alcohol Crossmatch 12/15/19 12/15/19 12/15/19 00:28 05:27 07:23 WBC 30.0 H RBC 3.11 L Hgb 8.6 L Hct 27.7 L MCH RDW 20.0 H Plt Count 473 H Lymph % (Auto) [place] % (Auto) [place] # Baso # Seg Neutrophils % Seg Neuts % (Manual) Lymphocytes % (Manual) Monocytes % (Manual) Seg Neutrophils # Seg Neutrophils # Man Lymphocytes # (Manual) Monocytes # (Manual) Eosinophils # (Manual) Basophils # (Manual) PT INR APTT ABG pH ABG pO2 ABG HCO3 ABG O2 Saturation ABG Base Excess ABG Hemoglobin Oxyhemoglobin Sodium Potassium Chloride Carbon Dioxide BUN Creatinine Glucose POC Glucose 167 H 148 H Lactic Acid Calcium Ionized Calcium Phosphorus Magnesium Total Bilirubin AST ALT Alkaline Phosphatase Ammonia Total Creatine Kinase CK-MB (CK-2) CK-MB (CK-2) Rel Index Total Protein Albumin Urine WBC (Auto) Vancomycin Trough Salicylates Acetaminophen Plasma/Serum Alcohol Crossmatch 12/15/19 12/15/19 12/15/19 07:23 12:21 17:41 WBC RBC Hgb Hct MCH RDW Plt Count Lymph % (Auto) [place] % (Auto) [place] # Baso # Seg Neutrophils % Seg Neuts % (Manual) Lymphocytes % (Manual) Monocytes % (Manual) Seg Neutrophils # Seg Neutrophils # Man Lymphocytes # (Manual) Monocytes # (Manual) Eosinophils # (Manual) Basophils # (Manual) PT INR APTT ABG pH ABG pO2 ABG HCO3 ABG O2 Saturation ABG Base Excess ABG Hemoglobin Oxyhemoglobin Sodium 147 H Potassium 3.5 L D Chloride 111.2 H Carbon Dioxide 19 L BUN 29 H Creatinine Glucose 126 H POC Glucose 154 H 144 H Lactic Acid Calcium Ionized Calcium Phosphorus Magnesium Total Bilirubin AST ALT Alkaline Phosphatase Ammonia Total Creatine Kinase CK-MB (CK-2) CK-MB (CK-2) Rel Index Total Protein Albumin Urine WBC (Auto) Vancomycin Trough Salicylates Acetaminophen Plasma/Serum Alcohol Crossmatch 12/16/19 12/16/19 12/16/19 00:22 05:30 05:44 WBC 30.8 H RBC 2.58 L Hgb 7.1 L Hct 22.7 L MCH RDW 19.6 H Plt Count 451 H Lymph % (Auto) [place] % (Auto) [place] # Baso # Seg Neutrophils % Seg Neuts % (Manual) Lymphocytes % (Manual) Monocytes % (Manual) Seg Neutrophils # Seg Neutrophils # Man Lymphocytes # (Manual) Monocytes # (Manual) Eosinophils # (Manual) Basophils # (Manual) PT INR APTT ABG pH ABG pO2 ABG HCO3 ABG O2 Saturation ABG Base Excess ABG Hemoglobin Oxyhemoglobin Sodium Potassium Chloride Carbon Dioxide BUN Creatinine Glucose POC Glucose 139 H 126 H Lactic Acid Calcium Ionized Calcium Phosphorus Magnesium Total Bilirubin AST ALT Alkaline Phosphatase Ammonia Total Creatine Kinase CK-MB (CK-2) CK-MB (CK-2) Rel Index Total Protein Albumin Urine WBC (Auto) Vancomycin Trough Salicylates Acetaminophen Plasma/Serum Alcohol Crossmatch 12/16/19 12/16/19 12/16/19 05:44 11:48 17:37 WBC RBC Hgb Hct MCH RDW Plt Count Lymph % (Auto) [place] % (Auto) [place] # Baso # Seg Neutrophils % Seg Neuts % (Manual) Lymphocytes % (Manual) Monocytes % (Manual) Seg Neutrophils # Seg Neutrophils # Man Lymphocytes # (Manual) Monocytes # (Manual) Eosinophils # (Manual) Basophils # (Manual) PT INR APTT ABG pH ABG pO2 ABG HCO3 ABG O2 Saturation ABG Base Excess ABG Hemoglobin Oxyhemoglobin Sodium Potassium 3.4 L Chloride 109.2 H Carbon Dioxide 19 L BUN 27 H Creatinine Glucose 124 H POC Glucose 125 H 148 H Lactic Acid Calcium Ionized Calcium Phosphorus Magnesium Total Bilirubin AST ALT Alkaline Phosphatase Ammonia Total Creatine Kinase CK-MB (CK-2) CK-MB (CK-2) Rel Index Total Protein Albumin Urine WBC (Auto) Vancomycin Trough Salicylates Acetaminophen Plasma/Serum Alcohol Crossmatch 12/16/19 12/17/19 12/17/19 23:43 05:28 12:47 WBC RBC Hgb Hct MCH RDW Plt Count Lymph % (Auto) [place] % (Auto) [place] # Baso # Seg Neutrophils % Seg Neuts % (Manual) Lymphocytes % (Manual) Monocytes % (Manual) Seg Neutrophils # Seg Neutrophils # Man Lymphocytes # (Manual) Monocytes # (Manual) Eosinophils # (Manual) Basophils # (Manual) PT INR APTT ABG pH ABG pO2 ABG HCO3 ABG O2 Saturation ABG Base Excess ABG Hemoglobin Oxyhemoglobin Sodium Potassium Chloride Carbon Dioxide BUN Creatinine Glucose POC Glucose 142 H 140 H 125 H Lactic Acid Calcium Ionized Calcium Phosphorus Magnesium Total Bilirubin AST ALT Alkaline Phosphatase Ammonia Total Creatine Kinase CK-MB (CK-2) CK-MB (CK-2) Rel Index Total Protein Albumin Urine WBC (Auto) Vancomycin Trough Salicylates Acetaminophen Plasma/Serum Alcohol Crossmatch 12/17/19 12/17/19 12/17/19 17:05 18:00 Unknown WBC RBC Hgb Hct MCH RDW Plt Count Lymph % (Auto) [place] % (Auto) [place] # Baso # Seg Neutrophils % Seg Neuts % (Manual) Lymphocytes % (Manual) Monocytes % (Manual) Seg Neutrophils # Seg Neutrophils # Man Lymphocytes # (Manual) Monocytes # (Manual) Eosinophils # (Manual) Basophils # (Manual) PT INR APTT ABG pH ABG pO2 68.1 L ABG HCO3 ABG O2 Saturation 93.7 L ABG Base Excess ABG Hemoglobin 5.0 L Oxyhemoglobin 91.7 L Sodium Potassium Chloride Carbon Dioxide BUN Creatinine Glucose POC Glucose 140 H Lactic Acid Calcium Ionized Calcium Phosphorus Magnesium Total Bilirubin AST ALT Alkaline Phosphatase Ammonia Total Creatine Kinase CK-MB (CK-2) CK-MB (CK-2) Rel Index Total Protein Albumin Urine WBC (Auto) Vancomycin Trough Salicylates Acetaminophen Plasma/Serum Alcohol Crossmatch 12/18/19 12/18/19 12/18/19 00:16 04:53 04:53 WBC 28.6 H RBC 2.27 L Hgb 6.3 L Hct 19.5 L* MCH RDW 20.0 H Plt Count 497 H Lymph % (Auto) [place] % (Auto) [place] # Baso # Seg Neutrophils % Seg Neuts % (Manual) Lymphocytes % (Manual) Monocytes % (Manual) Seg Neutrophils # Seg Neutrophils # Man Lymphocytes # (Manual) Monocytes # (Manual) Eosinophils # (Manual) Basophils # (Manual) PT INR APTT ABG pH ABG pO2 ABG HCO3 ABG O2 Saturation ABG Base Excess ABG Hemoglobin Oxyhemoglobin Sodium Potassium Chloride 107.9 H Carbon Dioxide 20 L BUN 27 H Creatinine 0.6 L Glucose 116 H POC Glucose 123 H Lactic Acid Calcium Ionized Calcium Phosphorus Magnesium Total Bilirubin AST ALT Alkaline Phosphatase Ammonia Total Creatine Kinase CK-MB (CK-2) CK-MB (CK-2) Rel Index Total Protein Albumin Urine WBC (Auto) Vancomycin Trough Salicylates Acetaminophen Plasma/Serum Alcohol Crossmatch 12/18/19 12/18/19 12/18/19 06:38 11:22 12:08 WBC RBC Hgb Hct MCH RDW Plt Count Lymph % (Auto) [place] % (Auto) [place] # Baso # Seg Neutrophils % Seg Neuts % (Manual) Lymphocytes % (Manual) Monocytes % (Manual) Seg Neutrophils # Seg Neutrophils # Man Lymphocytes # (Manual) Monocytes # (Manual) Eosinophils # (Manual) Basophils # (Manual) PT INR APTT ABG pH ABG pO2 ABG HCO3 ABG O2 Saturation ABG Base Excess ABG Hemoglobin Oxyhemoglobin Sodium Potassium Chloride Carbon Dioxide BUN Creatinine Glucose POC Glucose 120 H 127 H Lactic Acid Calcium Ionized Calcium Phosphorus Magnesium Total Bilirubin AST ALT Alkaline Phosphatase Ammonia Total Creatine Kinase CK-MB (CK-2) CK-MB (CK-2) Rel Index Total Protein Albumin Urine WBC (Auto) Vancomycin Trough Salicylates Acetaminophen Plasma/Serum Alcohol Crossmatch See Detail 12/18/19 12/18/19 12/18/19 14:05 17:49 23:53 WBC RBC Hgb Hct MCH RDW Plt Count Lymph % (Auto) [place] % (Auto) [place] # Baso # Seg Neutrophils % Seg Neuts % (Manual) Lymphocytes % (Manual) Monocytes % (Manual) Seg Neutrophils # Seg Neutrophils # Man Lymphocytes # (Manual) Monocytes # (Manual) Eosinophils # (Manual) Basophils # (Manual) PT INR APTT ABG pH 7.267 L ABG pO2 69.8 L ABG HCO3 ABG O2 Saturation 88.4 L ABG Base Excess ABG Hemoglobin 7.1 L Oxyhemoglobin 86.4 L Sodium Potassium Chloride Carbon Dioxide BUN Creatinine Glucose POC Glucose 157 H 128 H Lactic Acid Calcium Ionized Calcium Phosphorus Magnesium Total Bilirubin AST ALT Alkaline Phosphatase Ammonia Total Creatine Kinase CK-MB (CK-2) CK-MB (CK-2) Rel Index Total Protein Albumin Urine WBC (Auto) Vancomycin Trough Salicylates Acetaminophen Plasma/Serum Alcohol Crossmatch 12/19/19 12/19/19 12/19/19 03:37 03:37 05:25 WBC 31.3 H RBC 2.60 L Hgb 7.6 L Hct 23.0 L MCH RDW 19.4 H Plt Count 530 H Lymph % (Auto) [place] % (Auto) [place] # Baso # Seg Neutrophils % Seg Neuts % (Manual) Lymphocytes % (Manual) Monocytes % (Manual) Seg Neutrophils # Seg Neutrophils # Man Lymphocytes # (Manual) Monocytes # (Manual) Eosinophils # (Manual) Basophils # (Manual) PT INR APTT ABG pH ABG pO2 ABG HCO3 ABG O2 Saturation ABG Base Excess ABG Hemoglobin Oxyhemoglobin Sodium Potassium Chloride Carbon Dioxide 18 L BUN 36 H Creatinine Glucose 111 H POC Glucose 123 H Lactic Acid Calcium Ionized Calcium Phosphorus Magnesium Total Bilirubin AST ALT Alkaline Phosphatase Ammonia Total Creatine Kinase CK-MB (CK-2) CK-MB (CK-2) Rel Index Total Protein Albumin Urine WBC (Auto) Vancomycin Trough Salicylates Acetaminophen Plasma/Serum Alcohol Crossmatch 12/19/19 12/19/19 12/20/19 12:59 18:33 00:00 WBC RBC Hgb Hct MCH RDW Plt Count Lymph % (Auto) [place] % (Auto) [place] # Baso # Seg Neutrophils % Seg Neuts % (Manual) Lymphocytes % (Manual) Monocytes % (Manual) Seg Neutrophils # Seg Neutrophils # Man Lymphocytes # (Manual) Monocytes # (Manual) Eosinophils # (Manual) Basophils # (Manual) PT INR APTT ABG pH ABG pO2 ABG HCO3 ABG O2 Saturation ABG Base Excess ABG Hemoglobin Oxyhemoglobin Sodium Potassium Chloride Carbon Dioxide BUN Creatinine Glucose POC Glucose 130 H 118 H 135 H Lactic Acid Calcium Ionized Calcium Phosphorus Magnesium Total Bilirubin AST ALT Alkaline Phosphatase Ammonia Total Creatine Kinase CK-MB (CK-2) CK-MB (CK-2) Rel Index Total Protein Albumin Urine WBC (Auto) Vancomycin Trough Salicylates Acetaminophen Plasma/Serum Alcohol Crossmatch 12/20/19 12/20/19 12/20/19 05:46 12:31 18:07 WBC RBC Hgb Hct MCH RDW Plt Count Lymph % (Auto) [place] % (Auto) [place] # Baso # Seg Neutrophils % Seg Neuts % (Manual) Lymphocytes % (Manual) Monocytes % (Manual) Seg Neutrophils # Seg Neutrophils # Man Lymphocytes # (Manual) Monocytes # (Manual) Eosinophils # (Manual) Basophils # (Manual) PT INR APTT ABG pH ABG pO2 ABG HCO3 ABG O2 Saturation ABG Base Excess ABG Hemoglobin Oxyhemoglobin Sodium Potassium Chloride Carbon Dioxide BUN Creatinine Glucose POC Glucose 131 H 128 H 134 H Lactic Acid Calcium Ionized Calcium Phosphorus Magnesium Total Bilirubin AST ALT Alkaline Phosphatase Ammonia Total Creatine Kinase CK-MB (CK-2) CK-MB (CK-2) Rel Index Total Protein Albumin Urine WBC (Auto) Vancomycin Trough Salicylates Acetaminophen Plasma/Serum Alcohol Crossmatch 12/21/19 12/21/19 12/21/19 03:28 03:28 07:21 WBC 29.4 H RBC 2.30 L Hgb 6.8 L Hct 20.2 L MCH RDW 20.2 H Plt Count 746 H Lymph % (Auto) [place] % (Auto) [place] # Baso # Seg Neutrophils % Seg Neuts % (Manual) 85.0 H Lymphocytes % (Manual) 8.0 L Monocytes % (Manual) Seg Neutrophils # Seg Neutrophils # Man 25.0 H Lymphocytes # (Manual) Monocytes # (Manual) 1.5 H Eosinophils # (Manual) 0.6 H Basophils # (Manual) PT INR APTT ABG pH ABG pO2 ABG HCO3 ABG O2 Saturation ABG Base Excess ABG Hemoglobin Oxyhemoglobin Sodium Potassium Chloride Carbon Dioxide 17 L BUN 57 H Creatinine 1.4 H D Glucose POC Glucose 124 H Lactic Acid Calcium Ionized Calcium Phosphorus Magnesium Total Bilirubin AST ALT Alkaline Phosphatase Ammonia Total Creatine Kinase CK-MB (CK-2) CK-MB (CK-2) Rel Index Total Protein Albumin Urine WBC (Auto) Vancomycin Trough Salicylates Acetaminophen Plasma/Serum Alcohol Crossmatch 12/21/19 12/21/19 12/21/19 08:56 12:06 14:53 WBC RBC Hgb 7.2 L Hct 22.9 L MCH RDW Plt Count Lymph % (Auto) [place] % (Auto) [place] # Baso # Seg Neutrophils % Seg Neuts % (Manual) Lymphocytes % (Manual) Monocytes % (Manual) Seg Neutrophils # Seg Neutrophils # Man Lymphocytes # (Manual) Monocytes # (Manual) Eosinophils # (Manual) Basophils # (Manual) PT INR APTT ABG pH ABG pO2 ABG HCO3 ABG O2 Saturation ABG Base Excess ABG Hemoglobin Oxyhemoglobin Sodium Potassium Chloride Carbon Dioxide BUN Creatinine Glucose POC Glucose 116 H Lactic Acid Calcium Ionized Calcium Phosphorus Magnesium Total Bilirubin AST ALT Alkaline Phosphatase Ammonia Total Creatine Kinase CK-MB (CK-2) CK-MB (CK-2) Rel Index Total Protein Albumin Urine WBC (Auto) Vancomycin Trough 33.8 H Salicylates Acetaminophen Plasma/Serum Alcohol Crossmatch 12/21/19 12/21/19 12/21/19 14:54 17:27 23:49 WBC RBC Hgb Hct MCH RDW Plt Count Lymph % (Auto) [place] % (Auto) [place] # Baso # Seg Neutrophils % Seg Neuts % (Manual) Lymphocytes % (Manual) Monocytes % (Manual) Seg Neutrophils # Seg Neutrophils # Man Lymphocytes # (Manual) Monocytes # (Manual) Eosinophils # (Manual) Basophils # (Manual) PT INR APTT ABG pH ABG pO2 ABG HCO3 ABG O2 Saturation ABG Base Excess ABG Hemoglobin Oxyhemoglobin Sodium Potassium Chloride Carbon Dioxide BUN Creatinine Glucose POC Glucose 145 H 127 H Lactic Acid Calcium Ionized Calcium Phosphorus Magnesium Total Bilirubin AST ALT Alkaline Phosphatase Ammonia Total Creatine Kinase CK-MB (CK-2) CK-MB (CK-2) Rel Index Total Protein Albumin Urine WBC (Auto) Vancomycin Trough Salicylates Acetaminophen Plasma/Serum Alcohol Crossmatch See Detail 12/22/19 12/22/19 12/22/19 04:43 05:56 08:40 WBC RBC Hgb Hct MCH RDW Plt Count Lymph % (Auto) [place] % (Auto) [place] # Baso # Seg Neutrophils % Seg Neuts % (Manual) Lymphocytes % (Manual) Monocytes % (Manual) Seg Neutrophils # Seg Neutrophils # Man Lymphocytes # (Manual) Monocytes # (Manual) Eosinophils # (Manual) Basophils # (Manual) PT INR APTT ABG pH ABG pO2 75.6 L ABG HCO3 ABG O2 Saturation ABG Base Excess -2.6 L ABG Hemoglobin 6.8 L Oxyhemoglobin 94.6 L Sodium Potassium Chloride Carbon Dioxide 17 L BUN 60 H Creatinine 1.4 H Glucose 126 H POC Glucose 153 H Lactic Acid Calcium Ionized Calcium Phosphorus Magnesium Total Bilirubin AST ALT Alkaline Phosphatase Ammonia Total Creatine Kinase CK-MB (CK-2) CK-MB (CK-2) Rel Index Total Protein Albumin Urine WBC (Auto) Vancomycin Trough Salicylates Acetaminophen Plasma/Serum Alcohol Crossmatch 12/22/19 12/22/19 12/23/19 12:07 17:49 04:30 WBC 22.4 H RBC 2.68 L Hgb 7.6 L Hct 22.9 L MCH RDW 19.9 H Plt Count 998 H Lymph % (Auto) [place] % (Auto) [place] # Baso # Seg Neutrophils % Seg Neuts % (Manual) 88.0 H Lymphocytes % (Manual) 2.0 L Monocytes % (Manual) 9.0 H Seg Neutrophils # Seg Neutrophils # Man 19.7 H Lymphocytes # (Manual) 0.4 L Monocytes # (Manual) 2.0 H Eosinophils # (Manual) Basophils # (Manual) PT INR APTT ABG pH ABG pO2 ABG HCO3 ABG O2 Saturation ABG Base Excess ABG Hemoglobin Oxyhemoglobin Sodium Potassium Chloride Carbon Dioxide BUN Creatinine Glucose POC Glucose 140 H 116 H Lactic Acid Calcium Ionized Calcium Phosphorus Magnesium Total Bilirubin AST ALT Alkaline Phosphatase Ammonia Total Creatine Kinase CK-MB (CK-2) CK-MB (CK-2) Rel Index Total Protein Albumin Urine WBC (Auto) Vancomycin Trough Salicylates Acetaminophen Plasma/Serum Alcohol Crossmatch 12/23/19 12/23/19 12/23/19 04:30 12:00 18:06 WBC RBC Hgb Hct MCH RDW Plt Count Lymph % (Auto) [place] % (Auto) [place] # Baso # Seg Neutrophils % Seg Neuts % (Manual) Lymphocytes % (Manual) Monocytes % (Manual) Seg Neutrophils # Seg Neutrophils # Man Lymphocytes # (Manual) Monocytes # (Manual) Eosinophils # (Manual) Basophils # (Manual) PT INR APTT ABG pH ABG pO2 ABG HCO3 ABG O2 Saturation ABG Base Excess ABG Hemoglobin Oxyhemoglobin Sodium Potassium 5.2 H Chloride Carbon Dioxide 21 L BUN 69 H Creatinine 1.5 H Glucose 117 H POC Glucose 128 H 138 H Lactic Acid Calcium Ionized Calcium Phosphorus Magnesium Total Bilirubin AST ALT Alkaline Phosphatase Ammonia Total Creatine Kinase CK-MB (CK-2) CK-MB (CK-2) Rel Index Total Protein Albumin Urine WBC (Auto) Vancomycin Trough Salicylates Acetaminophen Plasma/Serum Alcohol Crossmatch 12/23/19 12/24/19 12/24/19 23:46 04:31 05:08 WBC RBC Hgb Hct MCH RDW Plt Count Lymph % (Auto) [place] % (Auto) [place] # Baso # Seg Neutrophils % Seg Neuts % (Manual) Lymphocytes % (Manual) Monocytes % (Manual) Seg Neutrophils # Seg Neutrophils # Man Lymphocytes # (Manual) Monocytes # (Manual) Eosinophils # (Manual) Basophils # (Manual) PT INR APTT ABG pH ABG pO2 ABG HCO3 ABG O2 Saturation ABG Base Excess ABG Hemoglobin Oxyhemoglobin Sodium Potassium 5.3 H Chloride 107.6 H Carbon Dioxide 20 L BUN 72 H Creatinine 1.6 H Glucose 120 H POC Glucose 120 H 140 H Lactic Acid Calcium Ionized Calcium Phosphorus Magnesium Total Bilirubin AST ALT Alkaline Phosphatase Ammonia Total Creatine Kinase CK-MB (CK-2) CK-MB (CK-2) Rel Index Total Protein Albumin Urine WBC (Auto) Vancomycin Trough Salicylates Acetaminophen Plasma/Serum Alcohol Crossmatch 12/24/19 12/24/19 12/25/19 11:58 17:49 03:47 WBC 36.2 H RBC 2.92 L Hgb 8.4 L Hct 26.1 L MCH RDW 20.2 H Plt Count 942 H Lymph % (Auto) [place] % (Auto) [place] # Baso # Seg Neutrophils % Seg Neuts % (Manual) 97.5 H Lymphocytes % (Manual) 1.0 L Monocytes % (Manual) Seg Neutrophils # Seg Neutrophils # Man 35.3 H Lymphocytes # (Manual) 0.4 L Monocytes # (Manual) Eosinophils # (Manual) Basophils # (Manual) PT INR APTT ABG pH ABG pO2 ABG HCO3 ABG O2 Saturation ABG Base Excess ABG Hemoglobin Oxyhemoglobin Sodium Potassium Chloride Carbon Dioxide BUN Creatinine Glucose POC Glucose 146 H 131 H Lactic Acid Calcium Ionized Calcium Phosphorus Magnesium Total Bilirubin AST ALT Alkaline Phosphatase Ammonia Total Creatine Kinase CK-MB (CK-2) CK-MB (CK-2) Rel Index Total Protein Albumin Urine WBC (Auto) Vancomycin Trough Salicylates Acetaminophen Plasma/Serum Alcohol Crossmatch 12/25/19 12/25/19 12/25/19 03:47 05:30 12:23 WBC RBC Hgb Hct MCH RDW Plt Count Lymph % (Auto) [place] % (Auto) [place] # Baso # Seg Neutrophils % Seg Neuts % (Manual) Lymphocytes % (Manual) Monocytes % (Manual) Seg Neutrophils # Seg Neutrophils # Man Lymphocytes # (Manual) Monocytes # (Manual) Eosinophils # (Manual) Basophils # (Manual) PT INR APTT ABG pH ABG pO2 ABG HCO3 ABG O2 Saturation ABG Base Excess ABG Hemoglobin Oxyhemoglobin Sodium Potassium Chloride Carbon Dioxide 15 L BUN 70 H Creatinine 1.7 H Glucose 153 H POC Glucose 169 H 135 H Lactic Acid Calcium Ionized Calcium Phosphorus Magnesium Total Bilirubin AST ALT Alkaline Phosphatase Ammonia Total Creatine Kinase CK-MB (CK-2) CK-MB (CK-2) Rel Index Total Protein Albumin Urine WBC (Auto) Vancomycin Trough Salicylates Acetaminophen Plasma/Serum Alcohol Crossmatch 12/25/19 12/25/19 12/26/19 17:37 23:29 09:47 WBC 22.1 H RBC 2.83 L Hgb 7.9 L Hct 25.5 L MCH RDW 20.0 H Plt Count 894 H Lymph % (Auto) [place] % (Auto) [place] # Baso # Seg Neutrophils % Seg Neuts % (Manual) Lymphocytes % (Manual) Monocytes % (Manual) Seg Neutrophils # Seg Neutrophils # Man Lymphocytes # (Manual) Monocytes # (Manual) Eosinophils # (Manual) Basophils # (Manual) PT INR APTT ABG pH ABG pO2 ABG HCO3 ABG O2 Saturation ABG Base Excess ABG Hemoglobin Oxyhemoglobin Sodium Potassium Chloride Carbon Dioxide BUN Creatinine Glucose POC Glucose 120 H 140 H Lactic Acid Calcium Ionized Calcium Phosphorus Magnesium Total Bilirubin AST ALT Alkaline Phosphatase Ammonia Total Creatine Kinase CK-MB (CK-2) CK-MB (CK-2) Rel Index Total Protein Albumin Urine WBC (Auto) Vancomycin Trough Salicylates Acetaminophen Plasma/Serum Alcohol Crossmatch 12/26/19 12/26/19 12/26/19 09:47 11:46 17:52 WBC RBC Hgb Hct MCH RDW Plt Count Lymph % (Auto) [place] % (Auto) [place] # Baso # Seg Neutrophils % Seg Neuts % (Manual) Lymphocytes % (Manual) Monocytes % (Manual) Seg Neutrophils # Seg Neutrophils # Man Lymphocytes # (Manual) Monocytes # (Manual) Eosinophils # (Manual) Basophils # (Manual) PT INR APTT ABG pH ABG pO2 ABG HCO3 ABG O2 Saturation ABG Base Excess ABG Hemoglobin Oxyhemoglobin Sodium Potassium Chloride Carbon Dioxide 18 L BUN 65 H Creatinine 1.4 H Glucose 132 H POC Glucose 110 H 145 H Lactic Acid Calcium Ionized Calcium Phosphorus Magnesium Total Bilirubin AST ALT Alkaline Phosphatase Ammonia Total Creatine Kinase CK-MB (CK-2) CK-MB (CK-2) Rel Index Total Protein Albumin Urine WBC (Auto) Vancomycin Trough Salicylates Acetaminophen Plasma/Serum Alcohol Crossmatch 12/27/19 12/27/19 12/27/19 00:01 03:42 03:42 WBC 18.0 H RBC 2.86 L Hgb 8.0 L Hct 25.2 L MCH RDW 19.2 H Plt Count 873 H Lymph % (Auto) 8.4 L [place] % (Auto) 7.5 H [place] # 1.4 H Baso # 0.2 H Seg Neutrophils % 82.2 H Seg Neuts % (Manual) Lymphocytes % (Manual) Monocytes % (Manual) Seg Neutrophils # 14.8 H Seg Neutrophils # Man Lymphocytes # (Manual) Monocytes # (Manual) Eosinophils # (Manual) Basophils # (Manual) PT INR APTT ABG pH ABG pO2 ABG HCO3 ABG O2 Saturation ABG Base Excess ABG Hemoglobin Oxyhemoglobin Sodium Potassium Chloride Carbon Dioxide BUN 73 H Creatinine 1.4 H Glucose 119 H POC Glucose 124 H Lactic Acid Calcium Ionized Calcium Phosphorus Magnesium Total Bilirubin AST ALT Alkaline Phosphatase Ammonia Total Creatine Kinase CK-MB (CK-2) CK-MB (CK-2) Rel Index Total Protein Albumin Urine WBC (Auto) Vancomycin Trough Salicylates Acetaminophen Plasma/Serum Alcohol Crossmatch 12/27/19 12/27/19 12/27/19 05:45 11:45 17:29 WBC RBC Hgb Hct MCH RDW Plt Count Lymph % (Auto) [place] % (Auto) [place] # Baso # Seg Neutrophils % Seg Neuts % (Manual) Lymphocytes % (Manual) Monocytes % (Manual) Seg Neutrophils # Seg Neutrophils # Man Lymphocytes # (Manual) Monocytes # (Manual) Eosinophils # (Manual) Basophils # (Manual) PT INR APTT ABG pH ABG pO2 ABG HCO3 ABG O2 Saturation ABG Base Excess ABG Hemoglobin Oxyhemoglobin Sodium Potassium Chloride Carbon Dioxide BUN Creatinine Glucose POC Glucose 131 H 123 H 134 H Lactic Acid Calcium Ionized Calcium Phosphorus Magnesium Total Bilirubin AST ALT Alkaline Phosphatase Ammonia Total Creatine Kinase CK-MB (CK-2) CK-MB (CK-2) Rel Index Total Protein Albumin Urine WBC (Auto) Vancomycin Trough Salicylates Acetaminophen Plasma/Serum Alcohol Crossmatch 12/28/19 12/28/19 12/28/19 00:12 05:14 11:53 WBC RBC Hgb Hct MCH RDW Plt Count Lymph % (Auto) [place] % (Auto) [place] # Baso # Seg Neutrophils % Seg Neuts % (Manual) Lymphocytes % (Manual) Monocytes % (Manual) Seg Neutrophils # Seg Neutrophils # Man Lymphocytes # (Manual) Monocytes # (Manual) Eosinophils # (Manual) Basophils # (Manual) PT INR APTT ABG pH ABG pO2 ABG HCO3 ABG O2 Saturation ABG Base Excess ABG Hemoglobin Oxyhemoglobin Sodium Potassium Chloride Carbon Dioxide BUN Creatinine Glucose POC Glucose 138 H 130 H 146 H Lactic Acid Calcium Ionized Calcium Phosphorus Magnesium Total Bilirubin AST ALT Alkaline Phosphatase Ammonia Total Creatine Kinase CK-MB (CK-2) CK-MB (CK-2) Rel Index Total Protein Albumin Urine WBC (Auto) Vancomycin Trough Salicylates Acetaminophen Plasma/Serum Alcohol Crossmatch 12/28/19 12/29/19 12/29/19 17:39 00:01 18:11 WBC RBC Hgb Hct MCH RDW Plt Count Lymph % (Auto) [place] % (Auto) [place] # Baso # Seg Neutrophils % Seg Neuts % (Manual) Lymphocytes % (Manual) Monocytes % (Manual) Seg Neutrophils # Seg Neutrophils # Man Lymphocytes # (Manual) Monocytes # (Manual) Eosinophils # (Manual) Basophils # (Manual) PT INR APTT ABG pH ABG pO2 ABG HCO3 ABG O2 Saturation ABG Base Excess ABG Hemoglobin Oxyhemoglobin Sodium Potassium Chloride Carbon Dioxide BUN Creatinine Glucose POC Glucose 117 H 139 H 130 H Lactic Acid Calcium Ionized Calcium Phosphorus Magnesium Total Bilirubin AST ALT Alkaline Phosphatase Ammonia Total Creatine Kinase CK-MB (CK-2) CK-MB (CK-2) Rel Index Total Protein Albumin Urine WBC (Auto) Vancomycin Trough Salicylates Acetaminophen Plasma/Serum Alcohol Crossmatch 12/29/19 12/30/19 12/30/19 23:09 00:02 01:06 WBC 16.7 H RBC 2.91 L Hgb 8.2 L Hct 25.4 L MCH RDW 18.7 H Plt Count 708 H Lymph % (Auto) 9.4 L [place] % (Auto) [place] # 0.9 H Baso # Seg Neutrophils % 83.5 H Seg Neuts % (Manual) Lymphocytes % (Manual) Monocytes % (Manual) Seg Neutrophils # 14.0 H Seg Neutrophils # Man Lymphocytes # (Manual) Monocytes # (Manual) Eosinophils # (Manual) Basophils # (Manual) PT INR APTT ABG pH ABG pO2 ABG HCO3 ABG O2 Saturation ABG Base Excess ABG Hemoglobin Oxyhemoglobin Sodium Potassium Chloride Carbon Dioxide BUN Creatinine Glucose POC Glucose 120 H 114 H Lactic Acid Calcium Ionized Calcium Phosphorus Magnesium Total Bilirubin AST ALT Alkaline Phosphatase Ammonia Total Creatine Kinase CK-MB (CK-2) CK-MB (CK-2) Rel Index Total Protein Albumin Urine WBC (Auto) Vancomycin Trough Salicylates Acetaminophen Plasma/Serum Alcohol Crossmatch 12/30/19 12/30/19 12/30/19 01:06 04:23 05:18 WBC RBC Hgb Hct MCH RDW Plt Count Lymph % (Auto) [place] % (Auto) [place] # Baso # Seg Neutrophils % Seg Neuts % (Manual) Lymphocytes % (Manual) Monocytes % (Manual) Seg Neutrophils # Seg Neutrophils # Man Lymphocytes # (Manual) Monocytes # (Manual) Eosinophils # (Manual) Basophils # (Manual) PT INR APTT ABG pH ABG pO2 ABG HCO3 ABG O2 Saturation ABG Base Excess ABG Hemoglobin 8.3 L Oxyhemoglobin Sodium Potassium Chloride Carbon Dioxide BUN 70 H Creatinine Glucose 122 H POC Glucose 130 H Lactic Acid Calcium Ionized Calcium Phosphorus Magnesium Total Bilirubin AST ALT Alkaline Phosphatase Ammonia Total Creatine Kinase CK-MB (CK-2) CK-MB (CK-2) Rel Index Total Protein Albumin Urine WBC (Auto) Vancomycin Trough Salicylates Acetaminophen Plasma/Serum Alcohol Crossmatch 12/30/19 12/30/19 12/30/19 05:40 12:17 17:43 WBC RBC Hgb Hct MCH RDW Plt Count Lymph % (Auto) [place] % (Auto) [place] # Baso # Seg Neutrophils % Seg Neuts % (Manual) Lymphocytes % (Manual) Monocytes % (Manual) Seg Neutrophils # Seg Neutrophils # Man Lymphocytes # (Manual) Monocytes # (Manual) Eosinophils # (Manual) Basophils # (Manual) PT INR APTT ABG pH ABG pO2 ABG HCO3 ABG O2 Saturation ABG Base Excess ABG Hemoglobin Oxyhemoglobin Sodium Potassium Chloride Carbon Dioxide BUN Creatinine Glucose POC Glucose 135 H 132 H 118 H Lactic Acid Calcium Ionized Calcium Phosphorus Magnesium Total Bilirubin AST ALT Alkaline Phosphatase Ammonia Total Creatine Kinase CK-MB (CK-2) CK-MB (CK-2) Rel Index Total Protein Albumin Urine WBC (Auto) Vancomycin Trough Salicylates Acetaminophen Plasma/Serum Alcohol Crossmatch 12/30/19 12/31/19 12/31/19 23:29 05:19 17:50 WBC RBC Hgb Hct MCH RDW Plt Count Lymph % (Auto) [place] % (Auto) [place] # Baso # Seg Neutrophils % Seg Neuts % (Manual) Lymphocytes % (Manual) Monocytes % (Manual) Seg Neutrophils # Seg Neutrophils # Man Lymphocytes # (Manual) Monocytes # (Manual) Eosinophils # (Manual) Basophils # (Manual) PT INR APTT ABG pH ABG pO2 ABG HCO3 ABG O2 Saturation ABG Base Excess ABG Hemoglobin Oxyhemoglobin Sodium Potassium Chloride Carbon Dioxide BUN Creatinine Glucose POC Glucose 114 H 109 H 116 H Lactic Acid Calcium Ionized Calcium Phosphorus Magnesium Total Bilirubin AST ALT Alkaline Phosphatase Ammonia Total Creatine Kinase CK-MB (CK-2) CK-MB (CK-2) Rel Index Total Protein Albumin Urine WBC (Auto) Vancomycin Trough Salicylates Acetaminophen Plasma/Serum Alcohol Crossmatch 01/01/20 01/01/20 01/01/20 00:10 05:19 12:02 WBC RBC Hgb Hct MCH RDW Plt Count Lymph % (Auto) [place] % (Auto) [place] # Baso # Seg Neutrophils % Seg Neuts % (Manual) Lymphocytes % (Manual) Monocytes % (Manual) Seg Neutrophils # Seg Neutrophils # Man Lymphocytes # (Manual) Monocytes # (Manual) Eosinophils # (Manual) Basophils # (Manual) PT INR APTT ABG pH ABG pO2 ABG HCO3 ABG O2 Saturation ABG Base Excess ABG Hemoglobin Oxyhemoglobin Sodium Potassium Chloride Carbon Dioxide BUN Creatinine Glucose POC Glucose 131 H 122 H 136 H Lactic Acid Calcium Ionized Calcium Phosphorus Magnesium Total Bilirubin AST ALT Alkaline Phosphatase Ammonia Total Creatine Kinase CK-MB (CK-2) CK-MB (CK-2) Rel Index Total Protein Albumin Urine WBC (Auto) Vancomycin Trough Salicylates Acetaminophen Plasma/Serum Alcohol Crossmatch Allied health notes reviewed: nursing
[2020-01-01] MEDS: QUEtiapine 100 MG TAB PO SCH (21:25)
[2020-01-02] MEDS ORDERED: LIP THERAPY VASELINE TP ONE (04:32)
[2020-01-02] MEDS: GLYCOPYRROLATE 1 MG TAB PO SCH ×3 (07:21→21:49)
[2020-01-02] MEDS: levETIRAcetam 500 MG/5 ML ORAL LIQD PO SCH ×2 (09:00→21:49)
[2020-01-02] MEDS: SERTRALINE 50 MG TAB PO SCH (09:00)
[2020-01-02] MEDS: LANSOPRAZOLE 30 MG SOLUTAB FEEDTUBE SCH (09:00)
[2020-01-02] MEDS: QUEtiapine 200 MG TAB PO SCH (09:01)
[2020-01-02] MEDS: hydrOXYzine PAMOATE 25 MG CAP PO SCH ×2 (09:01→21:49)
[2020-01-02] MEDS: TAMSULOSIN 0.4 MG CAP PO SCH (09:01)
[2020-01-02] MEDS: MIRTAZAPINE 30 MG TAB PO SCH (09:02)
--- NOTE | 2020-01-02 13:43 | Progress Note ---
Assessment and Plan / Anoxic brain injury: suspected CT head: No acute abnormality. neurology consult placed, EEG ordered showed Generalized slowing. No seizures or epileptiform activity. Per neurology : Patient found to have intact corneal/VOR/cough reflexes, and is withdrawing lower extremities, therefore patient is not found to be brain . However, given that patient had an out of hospital cardiac arrest, [facility], the likelihood of meaningful neurological recovery is somewhat low. -Patient now opening her eyes but does not follow any command or move any extremities /Acute Respiratory failure -s/p intubation, s/p trach and PEG on 12/12 with mechanical ventilation - CTA was done and negative for PE, - Echo quality is poor, showed diastolic dysfunction - continue ICU monitoring - wean OFF vent/O2 as tolerated /Anemia, microcytic -Continue to hold heparin, transfused 2 units of packed RBC -ordered stool for occult blood - pending /Acute metabolic encephalopathy/toxic encephalopathy due to the above - cont supportive care /Hyperammonemia - likely from liver disease related to EtOH abuse - Patient had elevated ammonia level and treated with lactulose /Metabolic Acidosis -Alcohol ketoacidosis vs hypoprofusion -Continue to monitor /ELevated LFTs, stable now - due to ischemic hepatitis. /Leucocytosis with sepsis - Source MRSA bacteremia and MSSA pneumonia. UA showed pyuria. RUQ US showed no ascites. - Repeat TTE negative for vegetation. Completed 7 days of Ceftriaxone on 11/29/2019. -Treated with Abx vancomycin 1 gm IV q 12 hour total 2 week till 12/30/2019 /MSSA pneumonia: Status post vancomycin till 12/30/2019 /ALcohol USe Disorder - given ongoing Alcohol use almost daily, s/p IV Thiamine - monitor /Severe hypokalemia -Repleted /Seizure disorder: treat with Keppra /H. Influenzae, tracheobronchitis, treated with abx DNR, Very poor prognosis The high probability of a clinically significant, sudden or life threatening deterioration of the [neurology,respiratory] system(s) required my full and direct attention, intervention and personal management. The aggregate critical care time was [32] minutes. This time is in addition to time spent performing reported procedures but includes the following: [x] Data Review and interpretation [x] Patient assessment and monitoring of vital signs [x] Documentation [x] Medication orders and management Disposition: prognosis very poor. Pending placement 12/31/19: still intubated via trach, no restraints needed, FiO2 30%, PEEP 6, Difficulty getting to Hospice, mother wants to kept updated. Patient has 4 kids, 2 sons in group home, 1 son is transgender and not involved per mother; Daughter is Deborah who is [employer]K 01/01/20: Still intubated, but patient opening her eyes but does not follow any command. Unable to set up inpatient hospice 01/01: Pending placement, patient is self funded. Brief History: 54-year-old female with a past medical history of Hypertension, Depression, Tobacco use Disorder, Alcohol use Disorder as confirmed by Daughter and pt's mother presents to the hospital status post cardiac arrest at home. EMS found pt in [facility]. They were unable to intubate patient with a ET tube because she was clenching down therefore Joe airway placed. Per the ED physician who evaluated pt, Patient presented with a pulse, intermittent respirations, and bagging support via Joe airway with O2 sat of 100%. Accu-Chek of 71 obtained by EMS. She was intubated in the ER and called for admission. Following admission patient was diagnosed with anoxic brain injury, sepsis with MRSA bacteremia and MSSA pneumonia, alcoholic liver disease. Family member wished for full code, patient currently getting treated with IV antibiotics for sepsis, status post trach and PEG on 12/13/19. Subjective Date of service: 01/02/20 Principal diagnosis: Ac cardiopulmonary arrest; Ac hypoxemic resp failure; Acute encephalopathy Interval history: Patient seen and examined remained on mechanical ventilation with trach, only open her eyes patient now DNR Discussed with RN at bedside, discussed with disease case manager for disposition planning Tolerating tube feeding with PEG tube, needs placement/hospice - uninsured PUI?: No COVID19: Negative Objective - Constitutional Vitals: Vital Signs - 12hr 01/02/20 01/02/20 01/02/20 02:00 03:00 04:00 Temperature 97.1 F L Pulse Rate 94 H 94 H 109 H Respiratory 17 12 22 Rate Blood Pressure 118/77 124/77 134/86 O2 Sat by Pulse 100 100 100 Oximetry O2 Sat by Pulse Oximetry [ Assessment] 01/02/20 01/02/20 01/02/20 04:06 04:17 05:00 Temperature Pulse Rate 108 H 102 H Respiratory 19 Rate Blood Pressure 134/86 126/81 O2 Sat by Pulse 100 100 Oximetry O2 Sat by Pulse 100 Oximetry [ Assessment] 01/02/20 01/02/20 01/02/20 06:00 07:00 07:58 Temperature 98.9 F Pulse Rate 103 H 110 H Respiratory 20 23 Rate Blood Pressure 132/83 129/91 O2 Sat by Pulse 100 100 Oximetry O2 Sat by Pulse Oximetry [ Assessment] 01/02/20 01/02/20 01/02/20 08:00 08:11 08:13 Temperature Pulse Rate 112 H 110 H Respiratory 12 23 Rate Blood Pressure 123/85 129/91 O2 Sat by Pulse 100 100 Oximetry O2 Sat by Pulse 98 Oximetry [ Assessment] 01/02/20 01/02/20 01/02/20 09:00 09:04 10:00 Temperature Pulse Rate 118 H 122 H Respiratory 24 23 Rate Blood Pressure 131/88 114/74 O2 Sat by Pulse 100 100 100 Oximetry O2 Sat by Pulse Oximetry [ Assessment] 01/02/20 01/02/20 01/02/20 11:00 11:29 12:00 Temperature 98.7 F Pulse Rate 125 H 125 H 122 H Respiratory 26 H 26 H Rate Blood Pressure 118/77 118/77 O2 Sat by Pulse 99 99 Oximetry O2 Sat by Pulse Oximetry [ Assessment] - Labs CBC & Chem 7: 12/30/19 01:06 12/30/19 01:06 Labs: Abnormal lab results 01/02/20 01/02/20 01/02/20 Range/Units 00:24 05:36 11:41 POC Glucose 119 H 109 H 125 H (70-105)
--- NOTE | 2020-01-02 14:21 | Progress Note ---
Assessment and Plan Acute cardiopulmonary arrest with ROSC Acute hypoxemic respiratory failure on MVS Acute metabolic-toxic encephalopathy Metabolic acidosis/alcoholic acidosis/Lactic acidosis Ischemic hepatitis Leucocytosis with lactic acidosis Tobacco use disorder ALcohol use Disorder Hypokalemia High grade fevers - reduce Psupp to 10 - ABG at 9pm - T-piece trials from tomorrow - no new issues; continue care as below - repeat CXR prn at this point - continue daily SAT's and assessment for readiness for SBT (For PSV trial to day) - Continue to wean supplemental oxygen for target O2 sat's > 90% - continue to rest on AC mode qhs - VAP bundle addressed (continue aspiration precautions, HOB > 40) - continue bronchodilators with routine trach care and pulmonary hygiene per RT - continue Seroquel to see if aqids weaning as ventiolation is adequate and perhaps tachypnea on PSV mode has a neural component - continue Antibiotics per ID recommendations; de-escalate based on HILARIO /sensitivities / clinical progress - continue Seroquel for tentative delirium and to spare IV sedation - continue Reglan for G.I. motility - Continue VTE and Stress ulcer prophylaxis - Continue enteric nutritional support - Monitor glycemic control, with target blood glucose 140-180 mg/dL while critically ill (Avoid hypoglycemia) - ABG and CXR prn - Continue to avoid nephrotoxins, adjust all medications fro GFR and CrCL - Continue to avoid benzodiazepines , as much as possible, to reduce the possibility of delirium - Continue prn analgesia per CPOT score - Continue to maintain of sleep-wake cycle, avoid delirium - PT/OT/ROM exercises- awaiting PT/OT evaluation - Continue mobility protocol and skin assessment per protocol for pressure ulcer prevention - Continue to monitor for clinical seizures - Continue Nicotine withdrawal precautions, alcohol withdrawal precautions - continue other care per attending / other consultants ..... re-evaluate in am & prn CONDITION: CRITICAL PROGNOSIS: GUARDED CODE STATUS: FULL CODE The high probability of a clinically significant, sudden or life-threatening deterioration of the [respiratory, cardiovascular & neurologic] system(s) required my full and direct attention, intervention and personal management. The aggregate critical care time was [34] minutes without overlap. Time includes spent on; [x] Data Review and interpretation [x] Patient assessment and monitoring of vital signs [x] Documentation [x] Medication orders and management Subjective Date of service: 01/02/20 Principal diagnosis: Ac cardiopulmonary arrest; Ac hypoxemic resp failure; Acute encephalopathy Interval history: Patient is seen today for: Acute cardiopulmonary arrest with ROSC; Acute hypoxemic respiratory failure; Acute metabolic-toxic encephalopathy; Ischemic hepatitis; Leucocytosis with lactic acidosis; Tobacco use disorder; Alcohol use Disorder; Hypokalemia; High grade fevers Seen and examined at bedside; 24hour events reviewed; nursing and respiratory care staff consulted; no adverse overnight events reported to me; resting peacefully in bed; remains on MVS; weaning tenuously; AMS is persistent PUI?: No COVID19: Negative Objective Vital Signs - 12hr 01/02/20 01/02/20 01/02/20 03:00 04:00 04:06 Temperature 97.1 F L Pulse Rate 94 H 109 H 108 H Respiratory 12 22 Rate Blood Pressure 124/77 134/86 134/86 O2 Sat by Pulse 100 100 100 Oximetry O2 Sat by Pulse Oximetry [ Assessment] 01/02/20 01/02/20 01/02/20 04:17 05:00 06:00 Temperature Pulse Rate 102 H 103 H Respiratory 19 20 Rate Blood Pressure 126/81 132/83 O2 Sat by Pulse 100 100 Oximetry O2 Sat by Pulse 100 Oximetry [ Assessment] 01/02/20 01/02/20 01/02/20 07:00 07:58 08:00 Temperature 98.9 F Pulse Rate 110 H 112 H Respiratory 23 12 Rate Blood Pressure 129/91 123/85 O2 Sat by Pulse 100 100 Oximetry O2 Sat by Pulse Oximetry [ Assessment] 01/02/20 01/02/20 01/02/20 08:11 08:13 09:00 Temperature Pulse Rate 110 H 118 H Respiratory 23 24 Rate Blood Pressure 129/91 131/88 O2 Sat by Pulse 100 100 Oximetry O2 Sat by Pulse 98 Oximetry [ Assessment] 01/02/20 01/02/20 01/02/20 09:04 10:00 11:00 Temperature Pulse Rate 122 H 125 H Respiratory 23 26 H Rate Blood Pressure 114/74 118/77 O2 Sat by Pulse 100 100 99 Oximetry O2 Sat by Pulse Oximetry [ Assessment] 01/02/20 01/02/20 11:29 12:00 Temperature 98.7 F Pulse Rate 125 H 122 H Respiratory 26 H Rate Blood Pressure 118/77 O2 Sat by Pulse 99 Oximetry O2 Sat by Pulse Oximetry [ Assessment] Constitutional: no acute distress, other (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, with midline tracheostomy and mild dys-synchrony) Eyes: non-icteric ENT: oropharynx moist, other (s/p trach) Neck: supple, no lymphadenopathy, no JVD Effort: mildly labored Ascultation: Bilateral: diminished breath sounds, rhonchi Percussion: Bilateral: not dull Cardiovascular: regular rate and rhythm (tachycardia), other (S1,S2) Gastrointestinal: normoactive bowel sounds, soft, non-tender, non-distended Integumentary: normal Extremities: no cyanosis, no edema, pulses normal, no ischemia or petechiae Neurologic: unable to assess, other (awake but not tracking voice ) Psychiatric: other (Psychiatric: Unable to assess) CBC and BMP: 12/30/19 01:06 12/30/19 01:06 ABG, PT/INR, D-dimer: ABG ABG pH 7.440 pH Units (7.350-7.450) 12/30/19 04:23 ABG pCO2 36.6 mm Hg 12/30/19 04:23 ABG pO2 89.9 mm Hg (80.0-90.0) 12/30/19 04:23 ABG O2 Saturation 97.3 % (95.0-99.0) 12/30/19 04:23 PT/INR, D-dimer PT 17.0 Sec. (12.2-14.9) H 11/23/19 03:47 INR 1.36 (0.87-1.13) H 11/23/19 03:47 Abnormal lab findings: Abnormal Labs 11/22/19 11/22/19 11/22/19 23:17 23:18 23:27 WBC 21.2 H RBC 3.59 L Hgb 9.8 L Hct MCH 27 L RDW 18.6 H Plt Count 454 H Lymph % (Auto) Pine % (Auto) Pine # Baso # Seg Neutrophils % Seg Neuts % (Manual) 86.0 H Lymphocytes % (Manual) 9.0 L Monocytes % (Manual) Seg Neutrophils # Seg Neutrophils # Man 18.2 H Lymphocytes # (Manual) Monocytes # (Manual) 1.1 H Eosinophils # (Manual) Basophils # (Manual) PT INR APTT ABG pH ABG pO2 ABG HCO3 ABG O2 Saturation ABG Base Excess ABG Hemoglobin Oxyhemoglobin Sodium Potassium Chloride Carbon Dioxide BUN Creatinine Glucose POC Glucose 53 L Lactic Acid Calcium Ionized Calcium Phosphorus Magnesium Total Bilirubin AST ALT Alkaline Phosphatase Ammonia Total Creatine Kinase CK-MB (CK-2) CK-MB (CK-2) Rel Index Total Protein Albumin Urine WBC (Auto) 40.0 H Vancomycin Trough Salicylates Acetaminophen Plasma/Serum Alcohol Crossmatch 11/22/19 11/22/19 11/22/19 23:27 23:27 23:27 WBC RBC Hgb Hct MCH RDW Plt Count Lymph % (Auto) Pine % (Auto) Pine # Baso # Seg Neutrophils % Seg Neuts % (Manual) Lymphocytes % (Manual) Monocytes % (Manual) Seg Neutrophils # Seg Neutrophils # Man Lymphocytes # (Manual) Monocytes # (Manual) Eosinophils # (Manual) Basophils # (Manual) PT INR APTT ABG pH ABG pO2 ABG HCO3 ABG O2 Saturation ABG Base Excess ABG Hemoglobin Oxyhemoglobin Sodium Potassium 2.4 L* Chloride 85.1 L Carbon Dioxide 19 L BUN Creatinine 0.5 L Glucose 261 H POC Glucose Lactic Acid Calcium Ionized Calcium Phosphorus Magnesium Total Bilirubin AST 609 H ALT 152 H Alkaline Phosphatase 160 H Ammonia 117.0 H Total Creatine Kinase 139 H CK-MB (CK-2) 8.3 H CK-MB (CK-2) Rel Index 5.9 H Total Protein Albumin 3.6 L Urine WBC (Auto) Vancomycin Trough Salicylates < 0.3 L Acetaminophen Plasma/Serum Alcohol Crossmatch 11/22/19 11/22/19 11/23/19 23:27 23:27 01:10 WBC RBC Hgb Hct MCH RDW Plt Count Lymph % (Auto) Pine % (Auto) Pine # Baso # Seg Neutrophils % Seg Neuts % (Manual) Lymphocytes % (Manual) Monocytes % (Manual) Seg Neutrophils # Seg Neutrophils # Man Lymphocytes # (Manual) Monocytes # (Manual) Eosinophils # (Manual) Basophils # (Manual) PT INR APTT ABG pH 7.273 L ABG pO2 209.7 H ABG HCO3 ABG O2 Saturation 99.2 H ABG Base Excess -3.9 L ABG Hemoglobin 10.6 L Oxyhemoglobin 93.9 L Sodium Potassium Chloride Carbon Dioxide BUN Creatinine Glucose POC Glucose Lactic Acid Calcium Ionized Calcium Phosphorus Magnesium Total Bilirubin AST ALT Alkaline Phosphatase Ammonia Total Creatine Kinase CK-MB (CK-2) CK-MB (CK-2) Rel Index Total Protein Albumin Urine WBC (Auto) Vancomycin Trough Salicylates Acetaminophen < 5.0 L Plasma/Serum Alcohol 0.08 H Crossmatch 11/23/19 11/23/19 11/23/19 01:19 01:19 03:47 WBC RBC Hgb Hct MCH RDW Plt Count Lymph % (Auto) Pine % (Auto) Pine # Baso # Seg Neutrophils % Seg Neuts % (Manual) Lymphocytes % (Manual) Monocytes % (Manual) Seg Neutrophils # Seg Neutrophils # Man Lymphocytes # (Manual) Monocytes # (Manual) Eosinophils # (Manual) Basophils # (Manual) PT 16.3 H INR 1.29 H APTT ABG pH ABG pO2 ABG HCO3 ABG O2 Saturation ABG Base Excess ABG Hemoglobin Oxyhemoglobin Sodium Potassium Chloride Carbon Dioxide BUN Creatinine Glucose POC Glucose Lactic Acid 2.10 H* 5.00 H* Calcium Ionized Calcium Phosphorus Magnesium Total Bilirubin AST ALT Alkaline Phosphatase Ammonia Total Creatine Kinase CK-MB (CK-2) CK-MB (CK-2) Rel Index Total Protein Albumin Urine WBC (Auto) Vancomycin Trough Salicylates Acetaminophen Plasma/Serum Alcohol Crossmatch 11/23/19 11/23/19 11/23/19 03:47 03:47 04:53 WBC RBC Hgb 9.4 L Hct MCH RDW Plt Count Lymph % (Auto) Pine % (Auto) Pine # Baso # Seg Neutrophils % Seg Neuts % (Manual) Lymphocytes % (Manual) Monocytes % (Manual) Seg Neutrophils # Seg Neutrophils # Man Lymphocytes # (Manual) Monocytes # (Manual) Eosinophils # (Manual) Basophils # (Manual) PT 17.0 H INR 1.36 H APTT 128.2 H* ABG pH ABG pO2 ABG HCO3 ABG O2 Saturation ABG Base Excess ABG Hemoglobin Oxyhemoglobin Sodium Potassium Chloride Carbon Dioxide 18 L BUN Creatinine 0.5 L Glucose 105 H POC Glucose Lactic Acid Calcium 8.3 L Ionized Calcium Phosphorus 2.40 L Magnesium Total Bilirubin 1.30 H AST 761 H ALT 158 H Alkaline Phosphatase 143 H Ammonia Total Creatine Kinase CK-MB (CK-2) CK-MB (CK-2) Rel Index Total Protein Albumin 2.8 L Urine WBC (Auto) Vancomycin Trough Salicylates Acetaminophen Plasma/Serum Alcohol Crossmatch 11/23/19 11/23/19 11/23/19 05:12 06:32 06:32 WBC 16.8 H RBC 3.31 L Hgb 8.9 L Hct 28.7 L MCH 27 L RDW 18.6 H Plt Count Lymph % (Auto) Pine % (Auto) Pine # Baso # Seg Neutrophils % Seg Neuts % (Manual) 94.0 H Lymphocytes % (Manual) 1.0 L Monocytes % (Manual) Seg Neutrophils # Seg Neutrophils # Man 15.8 H Lymphocytes # (Manual) 0.2 L Monocytes # (Manual) Eosinophils # (Manual) Basophils # (Manual) PT INR APTT ABG pH ABG pO2 ABG HCO3 ABG O2 Saturation ABG Base Excess -3.2 L ABG Hemoglobin 9.0 L Oxyhemoglobin 93.6 L Sodium Potassium Chloride Carbon Dioxide BUN Creatinine Glucose POC Glucose Lactic Acid Calcium Ionized Calcium 4.5 L Phosphorus Magnesium Total Bilirubin AST ALT Alkaline Phosphatase Ammonia Total Creatine Kinase CK-MB (CK-2) CK-MB (CK-2) Rel Index Total Protein Albumin Urine WBC (Auto) Vancomycin Trough Salicylates Acetaminophen Plasma/Serum Alcohol Crossmatch 11/23/19 11/24/19 11/24/19 06:32 04:35 04:35 WBC RBC Hgb Hct MCH RDW Plt Count Lymph % (Auto) Pine % (Auto) Pine # Baso # Seg Neutrophils % Seg Neuts % (Manual) Lymphocytes % (Manual) Monocytes % (Manual) Seg Neutrophils # Seg Neutrophils # Man Lymphocytes # (Manual) Monocytes # (Manual) Eosinophils # (Manual) Basophils # (Manual) PT INR APTT ABG pH ABG pO2 ABG HCO3 ABG O2 Saturation ABG Base Excess ABG Hemoglobin Oxyhemoglobin Sodium Potassium Chloride Carbon Dioxide BUN Creatinine Glucose POC Glucose Lactic Acid 3.30 H* Calcium Ionized Calcium Phosphorus Magnesium 1.40 L Total Bilirubin AST ALT Alkaline Phosphatase Ammonia 98.0 H Total Creatine Kinase CK-MB (CK-2) CK-MB (CK-2) Rel Index Total Protein Albumin Urine WBC (Auto) Vancomycin Trough Salicylates Acetaminophen Plasma/Serum Alcohol Crossmatch 11/24/19 11/25/19 11/25/19 05:22 04:34 05:05 WBC 17.3 H RBC 2.88 L Hgb 7.8 L Hct 24.6 L MCH 27 L RDW 18.5 H Plt Count Lymph % (Auto) 7.7 L Pine % (Auto) 9.7 H Pine # 1.7 H Baso # Seg Neutrophils % 82.2 H Seg Neuts % (Manual) Lymphocytes % (Manual) Monocytes % (Manual) Seg Neutrophils # 14.2 H Seg Neutrophils # Man Lymphocytes # (Manual) Monocytes # (Manual) Eosinophils # (Manual) Basophils # (Manual) PT INR APTT ABG pH 7.475 H ABG pO2 ABG HCO3 29.4 H 32.3 H ABG O2 Saturation ABG Base Excess 5.4 H 6.9 H ABG Hemoglobin 9.0 L 10.6 L Oxyhemoglobin 94.3 L Sodium Potassium Chloride Carbon Dioxide BUN Creatinine Glucose POC Glucose Lactic Acid Calcium Ionized Calcium Phosphorus Magnesium Total Bilirubin AST ALT Alkaline Phosphatase Ammonia Total Creatine Kinase CK-MB (CK-2) CK-MB (CK-2) Rel Index Total Protein Albumin Urine WBC (Auto) Vancomycin Trough Salicylates Acetaminophen Plasma/Serum Alcohol Crossmatch 11/25/19 11/25/19 11/26/19 05:05 22:46 03:31 WBC RBC Hgb Hct MCH RDW Plt Count Lymph % (Auto) Pine % (Auto) Pine # Baso # Seg Neutrophils % Seg Neuts % (Manual) Lymphocytes % (Manual) Monocytes % (Manual) Seg Neutrophils # Seg Neutrophils # Man Lymphocytes # (Manual) Monocytes # (Manual) Eosinophils # (Manual) Basophils # (Manual) PT INR APTT ABG pH 7.459 H ABG pO2 ABG HCO3 34.2 H ABG O2 Saturation ABG Base Excess 9.4 H ABG Hemoglobin 7.6 L Oxyhemoglobin 94.8 L Sodium 152 H D 147 H Potassium 2.3 L* D 2.8 L* D Chloride 107.8 H Carbon Dioxide 31 H D 33 H BUN Creatinine 0.6 L 0.6 L Glucose 148 H 177 H POC Glucose Lactic Acid Calcium Ionized Calcium Phosphorus Magnesium Total Bilirubin AST 105 H ALT 71 H Alkaline Phosphatase 155 H Ammonia Total Creatine Kinase CK-MB (CK-2) CK-MB (CK-2) Rel Index Total Protein 5.2 L D Albumin 2.9 L Urine WBC (Auto) Vancomycin Trough Salicylates Acetaminophen Plasma/Serum Alcohol Crossmatch 11/26/19 11/26/19 11/27/19 08:24 08:24 04:20 WBC 12.0 H RBC 3.00 L Hgb 8.0 L 9.3 L Hct 25.9 L 29.7 L MCH 27 L RDW 18.5 H Plt Count Lymph % (Auto) Pine % (Auto) Pine # Baso # Seg Neutrophils % Seg Neuts % (Manual) 89.0 H Lymphocytes % (Manual) 4.0 L Monocytes % (Manual) Seg Neutrophils # Seg Neutrophils # Man 10.7 H Lymphocytes # (Manual) 0.5 L Monocytes # (Manual) Eosinophils # (Manual) Basophils # (Manual) PT INR APTT ABG pH ABG pO2 ABG HCO3 ABG O2 Saturation ABG Base Excess ABG Hemoglobin Oxyhemoglobin Sodium 146 H Potassium 3.4 L D Chloride Carbon Dioxide BUN Creatinine 0.5 L Glucose 165 H POC Glucose Lactic Acid Calcium Ionized Calcium Phosphorus Magnesium Total Bilirubin AST 57 H ALT Alkaline Phosphatase 166 H Ammonia Total Creatine Kinase CK-MB (CK-2) CK-MB (CK-2) Rel Index Total Protein Albumin 2.9 L Urine WBC (Auto) Vancomycin Trough Salicylates Acetaminophen Plasma/Serum Alcohol Crossmatch 11/27/19 11/27/19 11/27/19 04:28 04:28 04:42 WBC RBC Hgb Hct MCH RDW Plt Count Lymph % (Auto) Pine % (Auto) Pine # Baso # Seg Neutrophils % Seg Neuts % (Manual) Lymphocytes % (Manual) Monocytes % (Manual) Seg Neutrophils # Seg Neutrophils # Man Lymphocytes # (Manual) Monocytes # (Manual) Eosinophils # (Manual) Basophils # (Manual) PT INR APTT ABG pH 7.470 H ABG pO2 74.0 L ABG HCO3 33.8 H ABG O2 Saturation ABG Base Excess 9.1 H ABG Hemoglobin 8.7 L Oxyhemoglobin 94.7 L Sodium 146 H Potassium 2.9 L* Chloride Carbon Dioxide BUN 25 H Creatinine Glucose 213 H POC Glucose Lactic Acid Calcium Ionized Calcium Phosphorus 1.00 L Magnesium Total Bilirubin AST ALT Alkaline Phosphatase Ammonia Total Creatine Kinase CK-MB (CK-2) CK-MB (CK-2) Rel Index Total Protein Albumin Urine WBC (Auto) Vancomycin Trough Salicylates Acetaminophen Plasma/Serum Alcohol Crossmatch 11/27/19 11/27/19 11/27/19 05:37 12:20 15:46 WBC RBC Hgb Hct MCH RDW Plt Count Lymph % (Auto) Pine % (Auto) Pine # Baso # Seg Neutrophils % Seg Neuts % (Manual) Lymphocytes % (Manual) Monocytes % (Manual) Seg Neutrophils # Seg Neutrophils # Man Lymphocytes # (Manual) Monocytes # (Manual) Eosinophils # (Manual) Basophils # (Manual) PT INR APTT ABG pH ABG pO2 ABG HCO3 ABG O2 Saturation ABG Base Excess ABG Hemoglobin Oxyhemoglobin Sodium 146 H Potassium 3.5 L D Chloride Carbon Dioxide BUN 24 H Creatinine 0.6 L Glucose 187 H POC Glucose 117 H 220 H Lactic Acid Calcium Ionized Calcium Phosphorus Magnesium Total Bilirubin AST ALT Alkaline Phosphatase Ammonia Total Creatine Kinase CK-MB (CK-2) CK-MB (CK-2) Rel Index Total Protein Albumin Urine WBC (Auto) Vancomycin Trough Salicylates Acetaminophen Plasma/Serum Alcohol Crossmatch 11/27/19 11/28/19 11/28/19 17:28 05:00 05:02 WBC RBC Hgb Hct MCH RDW Plt Count Lymph % (Auto) Pine % (Auto) Pine # Baso # Seg Neutrophils % Seg Neuts % (Manual) Lymphocytes % (Manual) Monocytes % (Manual) Seg Neutrophils # Seg Neutrophils # Man Lymphocytes # (Manual) Monocytes # (Manual) Eosinophils # (Manual) Basophils # (Manual) PT INR APTT ABG pH ABG pO2 72.4 L ABG HCO3 33.6 H ABG O2 Saturation 94.1 L ABG Base Excess 7.3 H ABG Hemoglobin Oxyhemoglobin 91.8 L Sodium 146 H Potassium 3.3 L Chloride Carbon Dioxide BUN 25 H Creatinine 0.6 L Glucose 176 H POC Glucose 198 H Lactic Acid Calcium Ionized Calcium Phosphorus Magnesium Total Bilirubin AST ALT Alkaline Phosphatase Ammonia Total Creatine Kinase CK-MB (CK-2) CK-MB (CK-2) Rel Index Total Protein Albumin Urine WBC (Auto) Vancomycin Trough Salicylates Acetaminophen Plasma/Serum Alcohol Crossmatch 11/28/19 11/28/19 11/29/19 05:02 18:55 10:43 WBC 15.2 H 19.0 H RBC 3.06 L 3.01 L Hgb 8.3 L 8.3 L Hct 27.0 L 26.4 L MCH 27 L RDW 19.0 H 19.7 H Plt Count 479 H 611 H Lymph % (Auto) Pine % (Auto) Pine # Baso # Seg Neutrophils % Seg Neuts % (Manual) 92.0 H Lymphocytes % (Manual) 2.0 L Monocytes % (Manual) Seg Neutrophils # Seg Neutrophils # Man 14.0 H Lymphocytes # (Manual) 0.3 L Monocytes # (Manual) Eosinophils # (Manual) Basophils # (Manual) PT INR APTT ABG pH ABG pO2 ABG HCO3 ABG O2 Saturation ABG Base Excess ABG Hemoglobin Oxyhemoglobin Sodium Potassium Chloride Carbon Dioxide BUN Creatinine Glucose POC Glucose 138 H Lactic Acid Calcium Ionized Calcium Phosphorus Magnesium Total Bilirubin AST ALT Alkaline Phosphatase Ammonia Total Creatine Kinase CK-MB (CK-2) CK-MB (CK-2) Rel Index Total Protein Albumin Urine WBC (Auto) Vancomycin Trough Salicylates Acetaminophen Plasma/Serum Alcohol Crossmatch 11/29/19 11/29/19 11/29/19 10:43 12:27 19:25 WBC RBC Hgb Hct MCH RDW Plt Count Lymph % (Auto) Pine % (Auto) Pine # Baso # Seg Neutrophils % Seg Neuts % (Manual) Lymphocytes % (Manual) Monocytes % (Manual) Seg Neutrophils # Seg Neutrophils # Man Lymphocytes # (Manual) Monocytes # (Manual) Eosinophils # (Manual) Basophils # (Manual) PT INR APTT ABG pH ABG pO2 ABG HCO3 ABG O2 Saturation ABG Base Excess ABG Hemoglobin Oxyhemoglobin Sodium Potassium 2.8 L* Chloride Carbon Dioxide BUN 20 H Creatinine 0.5 L Glucose 121 H POC Glucose 128 H 120 H Lactic Acid Calcium Ionized Calcium Phosphorus Magnesium Total Bilirubin AST ALT Alkaline Phosphatase Ammonia Total Creatine Kinase CK-MB (CK-2) CK-MB (CK-2) Rel Index Total Protein Albumin Urine WBC (Auto) Vancomycin Trough Salicylates Acetaminophen Plasma/Serum Alcohol Crossmatch 11/29/19 11/30/19 11/30/19 23:46 04:10 05:02 WBC RBC Hgb Hct MCH RDW Plt Count Lymph % (Auto) Pine % (Auto) Pine # Baso # Seg Neutrophils % Seg Neuts % (Manual) Lymphocytes % (Manual) Monocytes % (Manual) Seg Neutrophils # Seg Neutrophils # Man Lymphocytes # (Manual) Monocytes # (Manual) Eosinophils # (Manual) Basophils # (Manual) PT INR APTT ABG pH ABG pO2 76.3 L ABG HCO3 32.5 H ABG O2 Saturation ABG Base Excess 6.9 H ABG Hemoglobin 8.0 L Oxyhemoglobin 92.6 L Sodium Potassium Chloride Carbon Dioxide BUN Creatinine Glucose POC Glucose 116 H 128 H Lactic Acid Calcium Ionized Calcium Phosphorus Magnesium Total Bilirubin AST ALT Alkaline Phosphatase Ammonia Total Creatine Kinase CK-MB (CK-2) CK-MB (CK-2) Rel Index Total Protein Albumin Urine WBC (Auto) Vancomycin Trough Salicylates Acetaminophen Plasma/Serum Alcohol Crossmatch 11/30/19 11/30/19 11/30/19 05:25 05:25 12:59 WBC 18.4 H RBC 3.10 L Hgb 8.5 L Hct 27.5 L MCH 27 L RDW 20.9 H Plt Count 691 H Lymph % (Auto) 7.1 L Pine % (Auto) 7.7 H Pine # 1.4 H Baso # Seg Neutrophils % 83.4 H Seg Neuts % (Manual) Lymphocytes % (Manual) Monocytes % (Manual) Seg Neutrophils # 15.4 H Seg Neutrophils # Man Lymphocytes # (Manual) Monocytes # (Manual) Eosinophils # (Manual) Basophils # (Manual) PT INR APTT ABG pH ABG pO2 ABG HCO3 ABG O2 Saturation ABG Base Excess ABG Hemoglobin Oxyhemoglobin Sodium 146 H Potassium Chloride 107.2 H Carbon Dioxide BUN Creatinine 0.5 L Glucose 132 H POC Glucose 124 H Lactic Acid Calcium Ionized Calcium Phosphorus Magnesium Total Bilirubin AST 246 H ALT 274 H Alkaline Phosphatase 203 H Ammonia Total Creatine Kinase CK-MB (CK-2) CK-MB (CK-2) Rel Index Total Protein 5.4 L Albumin 2.9 L Urine WBC (Auto) Vancomycin Trough Salicylates Acetaminophen Plasma/Serum Alcohol Crossmatch 11/30/19 12/01/19 12/01/19 17:53 00:05 05:10 WBC RBC Hgb Hct MCH RDW Plt Count Lymph % (Auto) Pine % (Auto) Pine # Baso # Seg Neutrophils % Seg Neuts % (Manual) Lymphocytes % (Manual) Monocytes % (Manual) Seg Neutrophils # Seg Neutrophils # Man Lymphocytes # (Manual) Monocytes # (Manual) Eosinophils # (Manual) Basophils # (Manual) PT INR APTT ABG pH ABG pO2 ABG HCO3 ABG O2 Saturation ABG Base Excess ABG Hemoglobin Oxyhemoglobin Sodium Potassium Chloride Carbon Dioxide BUN Creatinine Glucose POC Glucose 113 H 143 H 145 H Lactic Acid Calcium Ionized Calcium Phosphorus Magnesium Total Bilirubin AST ALT Alkaline Phosphatase Ammonia Total Creatine Kinase CK-MB (CK-2) CK-MB (CK-2) Rel Index Total Protein Albumin Urine WBC (Auto) Vancomycin Trough Salicylates Acetaminophen Plasma/Serum Alcohol Crossmatch 12/01/19 12/01/19 12/01/19 05:33 08:23 08:23 WBC 22.7 H RBC 2.88 L Hgb 7.9 L Hct 25.2 L MCH 27 L RDW 21.0 H Plt Count 732 H Lymph % (Auto) Pine % (Auto) Pine # Baso # Seg Neutrophils % Seg Neuts % (Manual) 91.0 H Lymphocytes % (Manual) 3.0 L Monocytes % (Manual) Seg Neutrophils # Seg Neutrophils # Man 20.7 H Lymphocytes # (Manual) 0.7 L Monocytes # (Manual) 1.1 H Eosinophils # (Manual) Basophils # (Manual) PT INR APTT ABG pH ABG pO2 68.6 L ABG HCO3 34.1 H ABG O2 Saturation ABG Base Excess 9.0 H ABG Hemoglobin 6.5 L Oxyhemoglobin 94.7 L Sodium Potassium Chloride Carbon Dioxide BUN Creatinine 0.5 L Glucose 125 H POC Glucose Lactic Acid Calcium Ionized Calcium Phosphorus Magnesium Total Bilirubin AST ALT Alkaline Phosphatase Ammonia Total Creatine Kinase CK-MB (CK-2) CK-MB (CK-2) Rel Index Total Protein Albumin Urine WBC (Auto) Vancomycin Trough Salicylates Acetaminophen Plasma/Serum Alcohol Crossmatch 12/01/19 12/01/19 12/01/19 13:21 17:54 20:59 WBC RBC Hgb Hct MCH RDW Plt Count Lymph % (Auto) Pine % (Auto) Pine # Baso # Seg Neutrophils % Seg Neuts % (Manual) Lymphocytes % (Manual) Monocytes % (Manual) Seg Neutrophils # Seg Neutrophils # Man Lymphocytes # (Manual) Monocytes # (Manual) Eosinophils # (Manual) Basophils # (Manual) PT INR APTT ABG pH ABG pO2 78.3 L ABG HCO3 33.8 H ABG O2 Saturation 94.9 L ABG Base Excess 7.9 H ABG Hemoglobin 11.5 L Oxyhemoglobin 92.3 L Sodium Potassium Chloride Carbon Dioxide BUN Creatinine Glucose POC Glucose 111 H 115 H Lactic Acid Calcium Ionized Calcium Phosphorus Magnesium Total Bilirubin AST ALT Alkaline Phosphatase Ammonia Total Creatine Kinase CK-MB (CK-2) CK-MB (CK-2) Rel Index Total Protein Albumin Urine WBC (Auto) Vancomycin Trough Salicylates Acetaminophen Plasma/Serum Alcohol Crossmatch 12/02/19 12/03/19 12/04/19 12:55 20:00 04:26 WBC 15.2 H RBC 2.69 L Hgb 7.4 L Hct 23.6 L MCH 27 L RDW 19.9 H Plt Count 838 H Lymph % (Auto) Pine % (Auto) Pine # Baso # Seg Neutrophils % Seg Neuts % (Manual) Lymphocytes % (Manual) Monocytes % (Manual) Seg Neutrophils # Seg Neutrophils # Man Lymphocytes # (Manual) Monocytes # (Manual) Eosinophils # (Manual) Basophils # (Manual) PT INR APTT ABG pH ABG pO2 68.3 L ABG HCO3 33.5 H ABG O2 Saturation 93.5 L ABG Base Excess 8.4 H ABG Hemoglobin 7.3 L Oxyhemoglobin 90.9 L Sodium Potassium Chloride Carbon Dioxide BUN Creatinine Glucose POC Glucose 107 H Lactic Acid Calcium Ionized Calcium Phosphorus Magnesium Total Bilirubin AST ALT Alkaline Phosphatase Ammonia Total Creatine Kinase CK-MB (CK-2) CK-MB (CK-2) Rel Index Total Protein Albumin Urine WBC (Auto) Vancomycin Trough Salicylates Acetaminophen Plasma/Serum Alcohol Crossmatch 12/04/19 12/04/19 12/04/19 04:26 07:45 12:02 WBC 15.9 H RBC 2.88 L Hgb 7.9 L Hct 25.1 L MCH RDW 20.4 H Plt Count 839 H Lymph % (Auto) 11.3 L Pine % (Auto) 15.2 H Pine # 2.4 H Baso # Seg Neutrophils % 72.4 H Seg Neuts % (Manual) Lymphocytes % (Manual) Monocytes % (Manual) Seg Neutrophils # 11.5 H Seg Neutrophils # Man Lymphocytes # (Manual) Monocytes # (Manual) Eosinophils # (Manual) Basophils # (Manual) PT INR APTT ABG pH ABG pO2 ABG HCO3 ABG O2 Saturation ABG Base Excess ABG Hemoglobin Oxyhemoglobin Sodium Potassium Chloride 96.5 L Carbon Dioxide BUN 21 H Creatinine 0.6 L Glucose 107 H POC Glucose 138 H Lactic Acid Calcium Ionized Calcium Phosphorus Magnesium Total Bilirubin AST ALT Alkaline Phosphatase Ammonia Total Creatine Kinase CK-MB (CK-2) CK-MB (CK-2) Rel Index Total Protein Albumin Urine WBC (Auto) Vancomycin Trough Salicylates Acetaminophen Plasma/Serum Alcohol Crossmatch 12/04/19 12/05/19 12/05/19 18:16 11:55 18:36 WBC RBC Hgb Hct MCH RDW Plt Count Lymph % (Auto) Pine % (Auto) [place] # Baso # Seg Neutrophils % Seg Neuts % (Manual) Lymphocytes % (Manual) Monocytes % (Manual) Seg Neutrophils # Seg Neutrophils # Man Lymphocytes # (Manual) Monocytes # (Manual) Eosinophils # (Manual) Basophils # (Manual) PT INR APTT ABG pH ABG pO2 ABG HCO3 ABG O2 Saturation ABG Base Excess ABG Hemoglobin Oxyhemoglobin Sodium Potassium Chloride Carbon Dioxide BUN Creatinine Glucose POC Glucose 135 H 125 H 135 H Lactic Acid Calcium Ionized Calcium Phosphorus Magnesium Total Bilirubin AST ALT Alkaline Phosphatase Ammonia Total Creatine Kinase CK-MB (CK-2) CK-MB (CK-2) Rel Index Total Protein Albumin Urine WBC (Auto) Vancomycin Trough Salicylates Acetaminophen Plasma/Serum Alcohol Crossmatch 12/05/19 12/06/19 12/06/19 23:30 04:14 05:43 WBC RBC Hgb Hct MCH RDW Plt Count Lymph % (Auto) Pine % (Auto) [place] # Baso # Seg Neutrophils % Seg Neuts % (Manual) Lymphocytes % (Manual) Monocytes % (Manual) Seg Neutrophils # Seg Neutrophils # Man Lymphocytes # (Manual) Monocytes # (Manual) Eosinophils # (Manual) Basophils # (Manual) PT INR APTT ABG pH ABG pO2 ABG HCO3 ABG O2 Saturation ABG Base Excess ABG Hemoglobin Oxyhemoglobin Sodium Potassium 5.6 H Chloride 95.0 L Carbon Dioxide BUN 48 H Creatinine 1.3 H D Glucose POC Glucose 126 H 121 H Lactic Acid Calcium Ionized Calcium Phosphorus Magnesium Total Bilirubin AST 89 H ALT 98 H Alkaline Phosphatase 476 H Ammonia Total Creatine Kinase CK-MB (CK-2) CK-MB (CK-2) Rel Index Total Protein Albumin 2.8 L Urine WBC (Auto) Vancomycin Trough Salicylates Acetaminophen Plasma/Serum Alcohol Crossmatch 12/06/19 12/06/19 12/07/19 10:39 14:34 00:19 WBC 17.3 H RBC 2.60 L Hgb 7.1 L Hct 22.7 L MCH 27 L RDW 20.1 H Plt Count 832 H Lymph % (Auto) [place] % (Auto) [place] # Baso # Seg Neutrophils % Seg Neuts % (Manual) Lymphocytes % (Manual) Monocytes % (Manual) Seg Neutrophils # Seg Neutrophils # Man Lymphocytes # (Manual) Monocytes # (Manual) Eosinophils # (Manual) Basophils # (Manual) PT INR APTT ABG pH ABG pO2 ABG HCO3 ABG O2 Saturation ABG Base Excess ABG Hemoglobin Oxyhemoglobin Sodium Potassium Chloride Carbon Dioxide BUN Creatinine Glucose POC Glucose 128 H 136 H Lactic Acid Calcium Ionized Calcium Phosphorus Magnesium Total Bilirubin AST ALT Alkaline Phosphatase Ammonia Total Creatine Kinase CK-MB (CK-2) CK-MB (CK-2) Rel Index Total Protein Albumin Urine WBC (Auto) Vancomycin Trough Salicylates Acetaminophen Plasma/Serum Alcohol Crossmatch 12/07/19 12/07/19 12/07/19 03:44 03:44 05:53 WBC 16.2 H RBC 2.56 L Hgb 7.1 L Hct 22.3 L MCH RDW 19.4 H Plt Count 782 H Lymph % (Auto) Pine % (Auto) [place] # Baso # Seg Neutrophils % Seg Neuts % (Manual) Lymphocytes % (Manual) Monocytes % (Manual) Seg Neutrophils # Seg Neutrophils # Man Lymphocytes # (Manual) Monocytes # (Manual) Eosinophils # (Manual) Basophils # (Manual) PT INR APTT ABG pH ABG pO2 ABG HCO3 ABG O2 Saturation ABG Base Excess ABG Hemoglobin Oxyhemoglobin Sodium Potassium Chloride 95.6 L Carbon Dioxide BUN 56 H Creatinine 1.4 H Glucose 120 H POC Glucose 128 H Lactic Acid Calcium 10.3 H Ionized Calcium Phosphorus Magnesium Total Bilirubin AST ALT Alkaline Phosphatase Ammonia Total Creatine Kinase CK-MB (CK-2) CK-MB (CK-2) Rel Index Total Protein Albumin Urine WBC (Auto) Vancomycin Trough Salicylates Acetaminophen Plasma/Serum Alcohol Crossmatch 12/07/19 12/07/19 12/08/19 12:54 23:47 00:20 WBC RBC Hgb Hct MCH RDW Plt Count Lymph % (Auto) [place] % (Auto) [place] # Baso # Seg Neutrophils % Seg Neuts % (Manual) Lymphocytes % (Manual) Monocytes % (Manual) Seg Neutrophils # Seg Neutrophils # Man Lymphocytes # (Manual) Monocytes # (Manual) Eosinophils # (Manual) Basophils # (Manual) PT INR APTT ABG pH ABG pO2 ABG HCO3 ABG O2 Saturation ABG Base Excess ABG Hemoglobin Oxyhemoglobin Sodium Potassium Chloride Carbon Dioxide BUN Creatinine Glucose POC Glucose 128 H 130 H 124 H Lactic Acid Calcium Ionized Calcium Phosphorus Magnesium Total Bilirubin AST ALT Alkaline Phosphatase Ammonia Total Creatine Kinase CK-MB (CK-2) CK-MB (CK-2) Rel Index Total Protein Albumin Urine WBC (Auto) Vancomycin Trough Salicylates Acetaminophen Plasma/Serum Alcohol Crossmatch 12/08/19 12/08/19 12/08/19 06:38 12:04 18:26 WBC RBC Hgb Hct MCH RDW Plt Count Lymph % (Auto) [place] % (Auto) [place] # Baso # Seg Neutrophils % Seg Neuts % (Manual) Lymphocytes % (Manual) Monocytes % (Manual) Seg Neutrophils # Seg Neutrophils # Man Lymphocytes # (Manual) Monocytes # (Manual) Eosinophils # (Manual) Basophils # (Manual) PT INR APTT ABG pH ABG pO2 ABG HCO3 ABG O2 Saturation ABG Base Excess ABG Hemoglobin Oxyhemoglobin Sodium Potassium Chloride Carbon Dioxide BUN Creatinine Glucose POC Glucose 137 H 129 H 150 H Lactic Acid Calcium Ionized Calcium Phosphorus Magnesium Total Bilirubin AST ALT Alkaline Phosphatase Ammonia Total Creatine Kinase CK-MB (CK-2) CK-MB (CK-2) Rel Index Total Protein Albumin Urine WBC (Auto) Vancomycin Trough Salicylates Acetaminophen Plasma/Serum Alcohol Crossmatch 12/09/19 12/09/19 12/09/19 00:56 05:34 06:13 WBC RBC Hgb Hct MCH RDW Plt Count Lymph % (Auto) [place] % (Auto) [place] # Baso # Seg Neutrophils % Seg Neuts % (Manual) Lymphocytes % (Manual) Monocytes % (Manual) Seg Neutrophils # Seg Neutrophils # Man Lymphocytes # (Manual) Monocytes # (Manual) Eosinophils # (Manual) Basophils # (Manual) PT INR APTT ABG pH ABG pO2 ABG HCO3 ABG O2 Saturation ABG Base Excess ABG Hemoglobin Oxyhemoglobin Sodium 146 H Potassium Chloride Carbon Dioxide BUN 66 H Creatinine 1.9 H Glucose 116 H POC Glucose 130 H 130 H Lactic Acid Calcium Ionized Calcium Phosphorus Magnesium Total Bilirubin AST ALT Alkaline Phosphatase Ammonia Total Creatine Kinase CK-MB (CK-2) CK-MB (CK-2) Rel Index Total Protein Albumin Urine WBC (Auto) Vancomycin Trough Salicylates Acetaminophen Plasma/Serum Alcohol Crossmatch 12/09/19 12/09/19 12/10/19 11:52 17:50 00:14 WBC RBC Hgb Hct MCH RDW Plt Count Lymph % (Auto) [place] % (Auto) [place] # Baso # Seg Neutrophils % Seg Neuts % (Manual) Lymphocytes % (Manual) Monocytes % (Manual) Seg Neutrophils # Seg Neutrophils # Man Lymphocytes # (Manual) Monocytes # (Manual) Eosinophils # (Manual) Basophils # (Manual) PT INR APTT ABG pH ABG pO2 ABG HCO3 ABG O2 Saturation ABG Base Excess ABG Hemoglobin Oxyhemoglobin Sodium Potassium Chloride Carbon Dioxide BUN Creatinine Glucose POC Glucose 135 H 120 H 116 H Lactic Acid Calcium Ionized Calcium Phosphorus Magnesium Total Bilirubin AST ALT Alkaline Phosphatase Ammonia Total Creatine Kinase CK-MB (CK-2) CK-MB (CK-2) Rel Index Total Protein Albumin Urine WBC (Auto) Vancomycin Trough Salicylates Acetaminophen Plasma/Serum Alcohol Crossmatch 12/10/19 12/10/19 12/10/19 05:38 11:38 17:34 WBC RBC Hgb Hct MCH RDW Plt Count Lymph % (Auto) [place] % (Auto) [place] # Baso # Seg Neutrophils % Seg Neuts % (Manual) Lymphocytes % (Manual) Monocytes % (Manual) Seg Neutrophils # Seg Neutrophils # Man Lymphocytes # (Manual) Monocytes # (Manual) Eosinophils # (Manual) Basophils # (Manual) PT INR APTT ABG pH ABG pO2 ABG HCO3 ABG O2 Saturation ABG Base Excess ABG Hemoglobin Oxyhemoglobin Sodium Potassium Chloride Carbon Dioxide BUN Creatinine Glucose POC Glucose 115 H 112 H 130 H Lactic Acid Calcium Ionized Calcium Phosphorus Magnesium Total Bilirubin AST ALT Alkaline Phosphatase Ammonia Total Creatine Kinase CK-MB (CK-2) CK-MB (CK-2) Rel Index Total Protein Albumin Urine WBC (Auto) Vancomycin Trough Salicylates Acetaminophen Plasma/Serum Alcohol Crossmatch 12/11/19 12/11/19 12/11/19 00:20 05:31 12:22 WBC RBC Hgb Hct MCH RDW Plt Count Lymph % (Auto) [place] % (Auto) [place] # Baso # Seg Neutrophils % Seg Neuts % (Manual) Lymphocytes % (Manual) Monocytes % (Manual) Seg Neutrophils # Seg Neutrophils # Man Lymphocytes # (Manual) Monocytes # (Manual) Eosinophils # (Manual) Basophils # (Manual) PT INR APTT ABG pH ABG pO2 ABG HCO3 ABG O2 Saturation ABG Base Excess ABG Hemoglobin Oxyhemoglobin Sodium Potassium Chloride Carbon Dioxide BUN Creatinine Glucose POC Glucose 124 H 132 H 128 H Lactic Acid Calcium Ionized Calcium Phosphorus Magnesium Total Bilirubin AST ALT Alkaline Phosphatase Ammonia Total Creatine Kinase CK-MB (CK-2) CK-MB (CK-2) Rel Index Total Protein Albumin Urine WBC (Auto) Vancomycin Trough Salicylates Acetaminophen Plasma/Serum Alcohol Crossmatch 12/11/19 12/11/19 12/12/19 18:04 23:42 03:51 WBC RBC Hgb Hct MCH RDW Plt Count Lymph % (Auto) [place] % (Auto) [place] # Baso # Seg Neutrophils % Seg Neuts % (Manual) Lymphocytes % (Manual) Monocytes % (Manual) Seg Neutrophils # Seg Neutrophils # Man Lymphocytes # (Manual) Monocytes # (Manual) Eosinophils # (Manual) Basophils # (Manual) PT INR APTT ABG pH ABG pO2 ABG HCO3 ABG O2 Saturation ABG Base Excess ABG Hemoglobin Oxyhemoglobin Sodium 149 H Potassium Chloride Carbon Dioxide 20 L D BUN 77 H Creatinine 2.8 H Glucose POC Glucose 133 H 154 H Lactic Acid Calcium Ionized Calcium Phosphorus Magnesium Total Bilirubin AST ALT Alkaline Phosphatase Ammonia Total Creatine Kinase CK-MB (CK-2) CK-MB (CK-2) Rel Index Total Protein Albumin Urine WBC (Auto) Vancomycin Trough Salicylates Acetaminophen Plasma/Serum Alcohol Crossmatch 12/12/19 12/12/19 12/12/19 05:18 05:26 10:30 WBC 18.0 H RBC 2.51 L Hgb 6.8 L Hct 22.0 L MCH 27 L RDW 19.9 H Plt Count 582 H Lymph % (Auto) [place] % (Auto) [place] # Baso # Seg Neutrophils % Seg Neuts % (Manual) Lymphocytes % (Manual) Monocytes % (Manual) Seg Neutrophils # Seg Neutrophils # Man Lymphocytes # (Manual) Monocytes # (Manual) Eosinophils # (Manual) Basophils # (Manual) PT INR APTT ABG pH ABG pO2 ABG HCO3 ABG O2 Saturation ABG Base Excess ABG Hemoglobin Oxyhemoglobin Sodium Potassium Chloride Carbon Dioxide BUN Creatinine Glucose POC Glucose 135 H Lactic Acid Calcium Ionized Calcium Phosphorus Magnesium Total Bilirubin AST ALT Alkaline Phosphatase Ammonia Total Creatine Kinase CK-MB (CK-2) CK-MB (CK-2) Rel Index Total Protein Albumin Urine WBC (Auto) Vancomycin Trough Salicylates Acetaminophen Plasma/Serum Alcohol Crossmatch See Detail 12/12/19 12/12/19 12/12/19 11:44 18:10 23:21 WBC RBC Hgb Hct MCH RDW Plt Count Lymph % (Auto) [place] % (Auto) [place] # Baso # Seg Neutrophils % Seg Neuts % (Manual) Lymphocytes % (Manual) Monocytes % (Manual) Seg Neutrophils # Seg Neutrophils # Man Lymphocytes # (Manual) Monocytes # (Manual) Eosinophils # (Manual) Basophils # (Manual) PT INR APTT ABG pH ABG pO2 ABG HCO3 ABG O2 Saturation ABG Base Excess ABG Hemoglobin Oxyhemoglobin Sodium Potassium Chloride Carbon Dioxide BUN Creatinine Glucose POC Glucose 108 H 107 H 126 H Lactic Acid Calcium Ionized Calcium Phosphorus Magnesium Total Bilirubin AST ALT Alkaline Phosphatase Ammonia Total Creatine Kinase CK-MB (CK-2) CK-MB (CK-2) Rel Index Total Protein Albumin Urine WBC (Auto) Vancomycin Trough Salicylates Acetaminophen Plasma/Serum Alcohol Crossmatch 12/13/19 12/13/19 12/13/19 05:41 07:48 07:48 WBC 38.3 H RBC 2.37 L Hgb 6.3 L Hct 20.9 L MCH 27 L RDW 20.2 H Plt Count 546 H Lymph % (Auto) [place] % (Auto) [place] # Baso # Seg Neutrophils % Seg Neuts % (Manual) 93.0 H Lymphocytes % (Manual) 1.0 L Monocytes % (Manual) Seg Neutrophils # Seg Neutrophils # Man 35.6 H Lymphocytes # (Manual) 0.4 L Monocytes # (Manual) Eosinophils # (Manual) Basophils # (Manual) 0.4 H PT INR APTT ABG pH ABG pO2 ABG HCO3 ABG O2 Saturation ABG Base Excess ABG Hemoglobin Oxyhemoglobin Sodium 152 H Potassium 3.1 L D Chloride 111.9 H Carbon Dioxide 21 L BUN 53 H Creatinine 1.9 H Glucose 141 H POC Glucose 128 H Lactic Acid Calcium Ionized Calcium Phosphorus Magnesium Total Bilirubin AST ALT Alkaline Phosphatase 316 H Ammonia Total Creatine Kinase CK-MB (CK-2) CK-MB (CK-2) Rel Index Total Protein Albumin 2.4 L Urine WBC (Auto) Vancomycin Trough Salicylates Acetaminophen Plasma/Serum Alcohol Crossmatch 12/13/19 12/13/19 12/14/19 18:17 23:19 05:36 WBC RBC Hgb Hct MCH RDW Plt Count Lymph % (Auto) [place] % (Auto) [place] # Baso # Seg Neutrophils % Seg Neuts % (Manual) Lymphocytes % (Manual) Monocytes % (Manual) Seg Neutrophils # Seg Neutrophils # Man Lymphocytes # (Manual) Monocytes # (Manual) Eosinophils # (Manual) Basophils # (Manual) PT INR APTT ABG pH ABG pO2 ABG HCO3 ABG O2 Saturation ABG Base Excess ABG Hemoglobin Oxyhemoglobin Sodium Potassium Chloride Carbon Dioxide BUN Creatinine Glucose POC Glucose 141 H 158 H 182 H Lactic Acid Calcium Ionized Calcium Phosphorus Magnesium Total Bilirubin AST ALT Alkaline Phosphatase Ammonia Total Creatine Kinase CK-MB (CK-2) CK-MB (CK-2) Rel Index Total Protein Albumin Urine WBC (Auto) Vancomycin Trough Salicylates Acetaminophen Plasma/Serum Alcohol Crossmatch 12/14/19 12/14/19 12/14/19 08:48 08:48 10:31 WBC 33.3 H RBC 2.70 L Hgb 7.9 L 8.0 L Hct 25.3 L 24.0 L MCH RDW 19.2 H Plt Count 476 H Lymph % (Auto) [place] % (Auto) [place] # Baso # Seg Neutrophils % Seg Neuts % (Manual) Lymphocytes % (Manual) Monocytes % (Manual) Seg Neutrophils # Seg Neutrophils # Man Lymphocytes # (Manual) Monocytes # (Manual) Eosinophils # (Manual) Basophils # (Manual) PT INR APTT ABG pH ABG pO2 ABG HCO3 ABG O2 Saturation ABG Base Excess ABG Hemoglobin Oxyhemoglobin Sodium 153 H Potassium 2.5 L* Chloride 114.9 H Carbon Dioxide 20 L BUN 38 H Creatinine 1.4 H Glucose 177 H POC Glucose Lactic Acid Calcium Ionized Calcium Phosphorus Magnesium Total Bilirubin AST ALT Alkaline Phosphatase Ammonia Total Creatine Kinase CK-MB (CK-2) CK-MB (CK-2) Rel Index Total Protein Albumin Urine WBC (Auto) Vancomycin Trough Salicylates Acetaminophen Plasma/Serum Alcohol Crossmatch 12/14/19 12/14/19 12/14/19 12:57 16:15 17:50 WBC RBC Hgb Hct MCH RDW Plt Count Lymph % (Auto) [place] % (Auto) [place] # Baso # Seg Neutrophils % Seg Neuts % (Manual) Lymphocytes % (Manual) Monocytes % (Manual) Seg Neutrophils # Seg Neutrophils # Man Lymphocytes # (Manual) Monocytes # (Manual) Eosinophils # (Manual) Basophils # (Manual) PT INR APTT ABG pH ABG pO2 73.6 L ABG HCO3 ABG O2 Saturation ABG Base Excess ABG Hemoglobin 7.6 L Oxyhemoglobin 94.0 L Sodium Potassium Chloride Carbon Dioxide BUN Creatinine Glucose POC Glucose 174 H 150 H Lactic Acid Calcium Ionized Calcium Phosphorus Magnesium Total Bilirubin AST ALT Alkaline Phosphatase Ammonia Total Creatine Kinase CK-MB (CK-2) CK-MB (CK-2) Rel Index Total Protein Albumin Urine WBC (Auto) Vancomycin Trough Salicylates Acetaminophen Plasma/Serum Alcohol Crossmatch 12/15/19 12/15/19 12/15/19 00:28 05:27 07:23 WBC 30.0 H RBC 3.11 L Hgb 8.6 L Hct 27.7 L MCH RDW 20.0 H Plt Count 473 H Lymph % (Auto) [place] % (Auto) [place] # Baso # Seg Neutrophils % Seg Neuts % (Manual) Lymphocytes % (Manual) Monocytes % (Manual) Seg Neutrophils # Seg Neutrophils # Man Lymphocytes # (Manual) Monocytes # (Manual) Eosinophils # (Manual) Basophils # (Manual) PT INR APTT ABG pH ABG pO2 ABG HCO3 ABG O2 Saturation ABG Base Excess ABG Hemoglobin Oxyhemoglobin Sodium Potassium Chloride Carbon Dioxide BUN Creatinine Glucose POC Glucose 167 H 148 H Lactic Acid Calcium Ionized Calcium Phosphorus Magnesium Total Bilirubin AST ALT Alkaline Phosphatase Ammonia Total Creatine Kinase CK-MB (CK-2) CK-MB (CK-2) Rel Index Total Protein Albumin Urine WBC (Auto) Vancomycin Trough Salicylates Acetaminophen Plasma/Serum Alcohol Crossmatch 12/15/19 12/15/19 12/15/19 07:23 12:21 17:41 WBC RBC Hgb Hct MCH RDW Plt Count Lymph % (Auto) [place] % (Auto) [place] # Baso # Seg Neutrophils % Seg Neuts % (Manual) Lymphocytes % (Manual) Monocytes % (Manual) Seg Neutrophils # Seg Neutrophils # Man Lymphocytes # (Manual) Monocytes # (Manual) Eosinophils # (Manual) Basophils # (Manual) PT INR APTT ABG pH ABG pO2 ABG HCO3 ABG O2 Saturation ABG Base Excess ABG Hemoglobin Oxyhemoglobin Sodium 147 H Potassium 3.5 L D Chloride 111.2 H Carbon Dioxide 19 L BUN 29 H Creatinine Glucose 126 H POC Glucose 154 H 144 H Lactic Acid Calcium Ionized Calcium Phosphorus Magnesium Total Bilirubin AST ALT Alkaline Phosphatase Ammonia Total Creatine Kinase CK-MB (CK-2) CK-MB (CK-2) Rel Index Total Protein Albumin Urine WBC (Auto) Vancomycin Trough Salicylates Acetaminophen Plasma/Serum Alcohol Crossmatch 12/16/19 12/16/19 12/16/19 00:22 05:30 05:44 WBC 30.8 H RBC 2.58 L Hgb 7.1 L Hct 22.7 L MCH RDW 19.6 H Plt Count 451 H Lymph % (Auto) [place] % (Auto) [place] # Baso # Seg Neutrophils % Seg Neuts % (Manual) Lymphocytes % (Manual) Monocytes % (Manual) Seg Neutrophils # Seg Neutrophils # Man Lymphocytes # (Manual) Monocytes # (Manual) Eosinophils # (Manual) Basophils # (Manual) PT INR APTT ABG pH ABG pO2 ABG HCO3 ABG O2 Saturation ABG Base Excess ABG Hemoglobin Oxyhemoglobin Sodium Potassium Chloride Carbon Dioxide BUN Creatinine Glucose POC Glucose 139 H 126 H Lactic Acid Calcium Ionized Calcium Phosphorus Magnesium Total Bilirubin AST ALT Alkaline Phosphatase Ammonia Total Creatine Kinase CK-MB (CK-2) CK-MB (CK-2) Rel Index Total Protein Albumin Urine WBC (Auto) Vancomycin Trough Salicylates Acetaminophen Plasma/Serum Alcohol Crossmatch 12/16/19 12/16/19 12/16/19 05:44 11:48 17:37 WBC RBC Hgb Hct MCH RDW Plt Count Lymph % (Auto) [place] % (Auto) [place] # Baso # Seg Neutrophils % Seg Neuts % (Manual) Lymphocytes % (Manual) Monocytes % (Manual) Seg Neutrophils # Seg Neutrophils # Man Lymphocytes # (Manual) Monocytes # (Manual) Eosinophils # (Manual) Basophils # (Manual) PT INR APTT ABG pH ABG pO2 ABG HCO3 ABG O2 Saturation ABG Base Excess ABG Hemoglobin Oxyhemoglobin Sodium Potassium 3.4 L Chloride 109.2 H Carbon Dioxide 19 L BUN 27 H Creatinine Glucose 124 H POC Glucose 125 H 148 H Lactic Acid Calcium Ionized Calcium Phosphorus Magnesium Total Bilirubin AST ALT Alkaline Phosphatase Ammonia Total Creatine Kinase CK-MB (CK-2) CK-MB (CK-2) Rel Index Total Protein Albumin Urine WBC (Auto) Vancomycin Trough Salicylates Acetaminophen Plasma/Serum Alcohol Crossmatch 12/16/19 12/17/19 12/17/19 23:43 05:28 12:47 WBC RBC Hgb Hct MCH RDW Plt Count Lymph % (Auto) [place] % (Auto) [place] # Baso # Seg Neutrophils % Seg Neuts % (Manual) Lymphocytes % (Manual) Monocytes % (Manual) Seg Neutrophils # Seg Neutrophils # Man Lymphocytes # (Manual) Monocytes # (Manual) Eosinophils # (Manual) Basophils # (Manual) PT INR APTT ABG pH ABG pO2 ABG HCO3 ABG O2 Saturation ABG Base Excess ABG Hemoglobin Oxyhemoglobin Sodium Potassium Chloride Carbon Dioxide BUN Creatinine Glucose POC Glucose 142 H 140 H 125 H Lactic Acid Calcium Ionized Calcium Phosphorus Magnesium Total Bilirubin AST ALT Alkaline Phosphatase Ammonia Total Creatine Kinase CK-MB (CK-2) CK-MB (CK-2) Rel Index Total Protein Albumin Urine WBC (Auto) Vancomycin Trough Salicylates Acetaminophen Plasma/Serum Alcohol Crossmatch 12/17/19 12/17/19 12/17/19 17:05 18:00 Unknown WBC RBC Hgb Hct MCH RDW Plt Count Lymph % (Auto) [place] % (Auto) [place] # Baso # Seg Neutrophils % Seg Neuts % (Manual) Lymphocytes % (Manual) Monocytes % (Manual) Seg Neutrophils # Seg Neutrophils # Man Lymphocytes # (Manual) Monocytes # (Manual) Eosinophils # (Manual) Basophils # (Manual) PT INR APTT ABG pH ABG pO2 68.1 L ABG HCO3 ABG O2 Saturation 93.7 L ABG Base Excess ABG Hemoglobin 5.0 L Oxyhemoglobin 91.7 L Sodium Potassium Chloride Carbon Dioxide BUN Creatinine Glucose POC Glucose 140 H Lactic Acid Calcium Ionized Calcium Phosphorus Magnesium Total Bilirubin AST ALT Alkaline Phosphatase Ammonia Total Creatine Kinase CK-MB (CK-2) CK-MB (CK-2) Rel Index Total Protein Albumin Urine WBC (Auto) Vancomycin Trough Salicylates Acetaminophen Plasma/Serum Alcohol Crossmatch 12/18/19 12/18/19 12/18/19 00:16 04:53 04:53 WBC 28.6 H RBC 2.27 L Hgb 6.3 L Hct 19.5 L* MCH RDW 20.0 H Plt Count 497 H Lymph % (Auto) [place] % (Auto) [place] # Baso # Seg Neutrophils % Seg Neuts % (Manual) Lymphocytes % (Manual) Monocytes % (Manual) Seg Neutrophils # Seg Neutrophils # Man Lymphocytes # (Manual) Monocytes # (Manual) Eosinophils # (Manual) Basophils # (Manual) PT INR APTT ABG pH ABG pO2 ABG HCO3 ABG O2 Saturation ABG Base Excess ABG Hemoglobin Oxyhemoglobin Sodium Potassium Chloride 107.9 H Carbon Dioxide 20 L BUN 27 H Creatinine 0.6 L Glucose 116 H POC Glucose 123 H Lactic Acid Calcium Ionized Calcium Phosphorus Magnesium Total Bilirubin AST ALT Alkaline Phosphatase Ammonia Total Creatine Kinase CK-MB (CK-2) CK-MB (CK-2) Rel Index Total Protein Albumin Urine WBC (Auto) Vancomycin Trough Salicylates Acetaminophen Plasma/Serum Alcohol Crossmatch 12/18/19 12/18/19 12/18/19 06:38 11:22 12:08 WBC RBC Hgb Hct MCH RDW Plt Count Lymph % (Auto) [place] % (Auto) [place] # Baso # Seg Neutrophils % Seg Neuts % (Manual) Lymphocytes % (Manual) Monocytes % (Manual) Seg Neutrophils # Seg Neutrophils # Man Lymphocytes # (Manual) Monocytes # (Manual) Eosinophils # (Manual) Basophils # (Manual) PT INR APTT ABG pH ABG pO2 ABG HCO3 ABG O2 Saturation ABG Base Excess ABG Hemoglobin Oxyhemoglobin Sodium Potassium Chloride Carbon Dioxide BUN Creatinine Glucose POC Glucose 120 H 127 H Lactic Acid Calcium Ionized Calcium Phosphorus Magnesium Total Bilirubin AST ALT Alkaline Phosphatase Ammonia Total Creatine Kinase CK-MB (CK-2) CK-MB (CK-2) Rel Index Total Protein Albumin Urine WBC (Auto) Vancomycin Trough Salicylates Acetaminophen Plasma/Serum Alcohol Crossmatch See Detail 12/18/19 12/18/19 12/18/19 14:05 17:49 23:53 WBC RBC Hgb Hct MCH RDW Plt Count Lymph % (Auto) [place] % (Auto) [place] # Baso # Seg Neutrophils % Seg Neuts % (Manual) Lymphocytes % (Manual) Monocytes % (Manual) Seg Neutrophils # Seg Neutrophils # Man Lymphocytes # (Manual) Monocytes # (Manual) Eosinophils # (Manual) Basophils # (Manual) PT INR APTT ABG pH 7.267 L ABG pO2 69.8 L ABG HCO3 ABG O2 Saturation 88.4 L ABG Base Excess ABG Hemoglobin 7.1 L Oxyhemoglobin 86.4 L Sodium Potassium Chloride Carbon Dioxide BUN Creatinine Glucose POC Glucose 157 H 128 H Lactic Acid Calcium Ionized Calcium Phosphorus Magnesium Total Bilirubin AST ALT Alkaline Phosphatase Ammonia Total Creatine Kinase CK-MB (CK-2) CK-MB (CK-2) Rel Index Total Protein Albumin Urine WBC (Auto) Vancomycin Trough Salicylates Acetaminophen Plasma/Serum Alcohol Crossmatch 12/19/19 12/19/19 12/19/19 03:37 03:37 05:25 WBC 31.3 H RBC 2.60 L Hgb 7.6 L Hct 23.0 L MCH RDW 19.4 H Plt Count 530 H Lymph % (Auto) [place] % (Auto) [place] # Baso # Seg Neutrophils % Seg Neuts % (Manual) Lymphocytes % (Manual) Monocytes % (Manual) Seg Neutrophils # Seg Neutrophils # Man Lymphocytes # (Manual) Monocytes # (Manual) Eosinophils # (Manual) Basophils # (Manual) PT INR APTT ABG pH ABG pO2 ABG HCO3 ABG O2 Saturation ABG Base Excess ABG Hemoglobin Oxyhemoglobin Sodium Potassium Chloride Carbon Dioxide 18 L BUN 36 H Creatinine Glucose 111 H POC Glucose 123 H Lactic Acid Calcium Ionized Calcium Phosphorus Magnesium Total Bilirubin AST ALT Alkaline Phosphatase Ammonia Total Creatine Kinase CK-MB (CK-2) CK-MB (CK-2) Rel Index Total Protein Albumin Urine WBC (Auto) Vancomycin Trough Salicylates Acetaminophen Plasma/Serum Alcohol Crossmatch 12/19/19 12/19/19 12/20/19 12:59 18:33 00:00 WBC RBC Hgb Hct MCH RDW Plt Count Lymph % (Auto) [place] % (Auto) [place] # Baso # Seg Neutrophils % Seg Neuts % (Manual) Lymphocytes % (Manual) Monocytes % (Manual) Seg Neutrophils # Seg Neutrophils # Man Lymphocytes # (Manual) Monocytes # (Manual) Eosinophils # (Manual) Basophils # (Manual) PT INR APTT ABG pH ABG pO2 ABG HCO3 ABG O2 Saturation ABG Base Excess ABG Hemoglobin Oxyhemoglobin Sodium Potassium Chloride Carbon Dioxide BUN Creatinine Glucose POC Glucose 130 H 118 H 135 H Lactic Acid Calcium Ionized Calcium Phosphorus Magnesium Total Bilirubin AST ALT Alkaline Phosphatase Ammonia Total Creatine Kinase CK-MB (CK-2) CK-MB (CK-2) Rel Index Total Protein Albumin Urine WBC (Auto) Vancomycin Trough Salicylates Acetaminophen Plasma/Serum Alcohol Crossmatch 12/20/19 12/20/19 12/20/19 05:46 12:31 18:07 WBC RBC Hgb Hct MCH RDW Plt Count Lymph % (Auto) Pine % (Auto) Pine # Baso # Seg Neutrophils % Seg Neuts % (Manual) Lymphocytes % (Manual) Monocytes % (Manual) Seg Neutrophils # Seg Neutrophils # Man Lymphocytes # (Manual) Monocytes # (Manual) Eosinophils # (Manual) Basophils # (Manual) PT INR APTT ABG pH ABG pO2 ABG HCO3 ABG O2 Saturation ABG Base Excess ABG Hemoglobin Oxyhemoglobin Sodium Potassium Chloride Carbon Dioxide BUN Creatinine Glucose POC Glucose 131 H 128 H 134 H Lactic Acid Calcium Ionized Calcium Phosphorus Magnesium Total Bilirubin AST ALT Alkaline Phosphatase Ammonia Total Creatine Kinase CK-MB (CK-2) CK-MB (CK-2) Rel Index Total Protein Albumin Urine WBC (Auto) Vancomycin Trough Salicylates Acetaminophen Plasma/Serum Alcohol Crossmatch 12/21/19 12/21/19 12/21/19 03:28 03:28 07:21 WBC 29.4 H RBC 2.30 L Hgb 6.8 L Hct 20.2 L MCH RDW 20.2 H Plt Count 746 H Lymph % (Auto) Pine % (Auto) Pine # Baso # Seg Neutrophils % Seg Neuts % (Manual) 85.0 H Lymphocytes % (Manual) 8.0 L Monocytes % (Manual) Seg Neutrophils # Seg Neutrophils # Man 25.0 H Lymphocytes # (Manual) Monocytes # (Manual) 1.5 H Eosinophils # (Manual) 0.6 H Basophils # (Manual) PT INR APTT ABG pH ABG pO2 ABG HCO3 ABG O2 Saturation ABG Base Excess ABG Hemoglobin Oxyhemoglobin Sodium Potassium Chloride Carbon Dioxide 17 L BUN 57 H Creatinine 1.4 H D Glucose POC Glucose 124 H Lactic Acid Calcium Ionized Calcium Phosphorus Magnesium Total Bilirubin AST ALT Alkaline Phosphatase Ammonia Total Creatine Kinase CK-MB (CK-2) CK-MB (CK-2) Rel Index Total Protein Albumin Urine WBC (Auto) Vancomycin Trough Salicylates Acetaminophen Plasma/Serum Alcohol Crossmatch 12/21/19 12/21/19 12/21/19 08:56 12:06 14:53 WBC RBC Hgb 7.2 L Hct 22.9 L MCH RDW Plt Count Lymph % (Auto) Pine % (Auto) Pine # Baso # Seg Neutrophils % Seg Neuts % (Manual) Lymphocytes % (Manual) Monocytes % (Manual) Seg Neutrophils # Seg Neutrophils # Man Lymphocytes # (Manual) Monocytes # (Manual) Eosinophils # (Manual) Basophils # (Manual) PT INR APTT ABG pH ABG pO2 ABG HCO3 ABG O2 Saturation ABG Base Excess ABG Hemoglobin Oxyhemoglobin Sodium Potassium Chloride Carbon Dioxide BUN Creatinine Glucose POC Glucose 116 H Lactic Acid Calcium Ionized Calcium Phosphorus Magnesium Total Bilirubin AST ALT Alkaline Phosphatase Ammonia Total Creatine Kinase CK-MB (CK-2) CK-MB (CK-2) Rel Index Total Protein Albumin Urine WBC (Auto) Vancomycin Trough 33.8 H Salicylates Acetaminophen Plasma/Serum Alcohol Crossmatch 12/21/19 12/21/19 12/21/19 14:54 17:27 23:49 WBC RBC Hgb Hct MCH RDW Plt Count Lymph % (Auto) Pine % (Auto) Pine # Baso # Seg Neutrophils % Seg Neuts % (Manual) Lymphocytes % (Manual) Monocytes % (Manual) Seg Neutrophils # Seg Neutrophils # Man Lymphocytes # (Manual) Monocytes # (Manual) Eosinophils # (Manual) Basophils # (Manual) PT INR APTT ABG pH ABG pO2 ABG HCO3 ABG O2 Saturation ABG Base Excess ABG Hemoglobin Oxyhemoglobin Sodium Potassium Chloride Carbon Dioxide BUN Creatinine Glucose POC Glucose 145 H 127 H Lactic Acid Calcium Ionized Calcium Phosphorus Magnesium Total Bilirubin AST ALT Alkaline Phosphatase Ammonia Total Creatine Kinase CK-MB (CK-2) CK-MB (CK-2) Rel Index Total Protein Albumin Urine WBC (Auto) Vancomycin Trough Salicylates Acetaminophen Plasma/Serum Alcohol Crossmatch See Detail 12/22/19 12/22/19 12/22/19 04:43 05:56 08:40 WBC RBC Hgb Hct MCH RDW Plt Count Lymph % (Auto) Pine % (Auto) Pine # Baso # Seg Neutrophils % Seg Neuts % (Manual) Lymphocytes % (Manual) Monocytes % (Manual) Seg Neutrophils # Seg Neutrophils # Man Lymphocytes # (Manual) Monocytes # (Manual) Eosinophils # (Manual) Basophils # (Manual) PT INR APTT ABG pH ABG pO2 75.6 L ABG HCO3 ABG O2 Saturation ABG Base Excess -2.6 L ABG Hemoglobin 6.8 L Oxyhemoglobin 94.6 L Sodium Potassium Chloride Carbon Dioxide 17 L BUN 60 H Creatinine 1.4 H Glucose 126 H POC Glucose 153 H Lactic Acid Calcium Ionized Calcium Phosphorus Magnesium Total Bilirubin AST ALT Alkaline Phosphatase Ammonia Total Creatine Kinase CK-MB (CK-2) CK-MB (CK-2) Rel Index Total Protein Albumin Urine WBC (Auto) Vancomycin Trough Salicylates Acetaminophen Plasma/Serum Alcohol Crossmatch 12/22/19 12/22/19 12/23/19 12:07 17:49 04:30 WBC 22.4 H RBC 2.68 L Hgb 7.6 L Hct 22.9 L MCH RDW 19.9 H Plt Count 998 H Lymph % (Auto) Pine % (Auto) Pine # Baso # Seg Neutrophils % Seg Neuts % (Manual) 88.0 H Lymphocytes % (Manual) 2.0 L Monocytes % (Manual) 9.0 H Seg Neutrophils # Seg Neutrophils # Man 19.7 H Lymphocytes # (Manual) 0.4 L Monocytes # (Manual) 2.0 H Eosinophils # (Manual) Basophils # (Manual) PT INR APTT ABG pH ABG pO2 ABG HCO3 ABG O2 Saturation ABG Base Excess ABG Hemoglobin Oxyhemoglobin Sodium Potassium Chloride Carbon Dioxide BUN Creatinine Glucose POC Glucose 140 H 116 H Lactic Acid Calcium Ionized Calcium Phosphorus Magnesium Total Bilirubin AST ALT Alkaline Phosphatase Ammonia Total Creatine Kinase CK-MB (CK-2) CK-MB (CK-2) Rel Index Total Protein Albumin Urine WBC (Auto) Vancomycin Trough Salicylates Acetaminophen Plasma/Serum Alcohol Crossmatch 12/23/19 12/23/19 12/23/19 04:30 12:00 18:06 WBC RBC Hgb Hct MCH RDW Plt Count Lymph % (Auto) Pine % (Auto) Pine # Baso # Seg Neutrophils % Seg Neuts % (Manual) Lymphocytes % (Manual) Monocytes % (Manual) Seg Neutrophils # Seg Neutrophils # Man Lymphocytes # (Manual) Monocytes # (Manual) Eosinophils # (Manual) Basophils # (Manual) PT INR APTT ABG pH ABG pO2 ABG HCO3 ABG O2 Saturation ABG Base Excess ABG Hemoglobin Oxyhemoglobin Sodium Potassium 5.2 H Chloride Carbon Dioxide 21 L BUN 69 H Creatinine 1.5 H Glucose 117 H POC Glucose 128 H 138 H Lactic Acid Calcium Ionized Calcium Phosphorus Magnesium Total Bilirubin AST ALT Alkaline Phosphatase Ammonia Total Creatine Kinase CK-MB (CK-2) CK-MB (CK-2) Rel Index Total Protein Albumin Urine WBC (Auto) Vancomycin Trough Salicylates Acetaminophen Plasma/Serum Alcohol Crossmatch 12/23/19 12/24/19 12/24/19 23:46 04:31 05:08 WBC RBC Hgb Hct MCH RDW Plt Count Lymph % (Auto) Pine % (Auto) Pine # Baso # Seg Neutrophils % Seg Neuts % (Manual) Lymphocytes % (Manual) Monocytes % (Manual) Seg Neutrophils # Seg Neutrophils # Man Lymphocytes # (Manual) Monocytes # (Manual) Eosinophils # (Manual) Basophils # (Manual) PT INR APTT ABG pH ABG pO2 ABG HCO3 ABG O2 Saturation ABG Base Excess ABG Hemoglobin Oxyhemoglobin Sodium Potassium 5.3 H Chloride 107.6 H Carbon Dioxide 20 L BUN 72 H Creatinine 1.6 H Glucose 120 H POC Glucose 120 H 140 H Lactic Acid Calcium Ionized Calcium Phosphorus Magnesium Total Bilirubin AST ALT Alkaline Phosphatase Ammonia Total Creatine Kinase CK-MB (CK-2) CK-MB (CK-2) Rel Index Total Protein Albumin Urine WBC (Auto) Vancomycin Trough Salicylates Acetaminophen Plasma/Serum Alcohol Crossmatch 12/24/19 12/24/19 12/25/19 11:58 17:49 03:47 WBC 36.2 H RBC 2.92 L Hgb 8.4 L Hct 26.1 L MCH RDW 20.2 H Plt Count 942 H Lymph % (Auto) Pine % (Auto) Pine # Baso # Seg Neutrophils % Seg Neuts % (Manual) 97.5 H Lymphocytes % (Manual) 1.0 L Monocytes % (Manual) Seg Neutrophils # Seg Neutrophils # Man 35.3 H Lymphocytes # (Manual) 0.4 L Monocytes # (Manual) Eosinophils # (Manual) Basophils # (Manual) PT INR APTT ABG pH ABG pO2 ABG HCO3 ABG O2 Saturation ABG Base Excess ABG Hemoglobin Oxyhemoglobin Sodium Potassium Chloride Carbon Dioxide BUN Creatinine Glucose POC Glucose 146 H 131 H Lactic Acid Calcium Ionized Calcium Phosphorus Magnesium Total Bilirubin AST ALT Alkaline Phosphatase Ammonia Total Creatine Kinase CK-MB (CK-2) CK-MB (CK-2) Rel Index Total Protein Albumin Urine WBC (Auto) Vancomycin Trough Salicylates Acetaminophen Plasma/Serum Alcohol Crossmatch 12/25/19 12/25/19 12/25/19 03:47 05:30 12:23 WBC RBC Hgb Hct MCH RDW Plt Count Lymph % (Auto) Pine % (Auto) Pine # Baso # Seg Neutrophils % Seg Neuts % (Manual) Lymphocytes % (Manual) Monocytes % (Manual) Seg Neutrophils # Seg Neutrophils # Man Lymphocytes # (Manual) Monocytes # (Manual) Eosinophils # (Manual) Basophils # (Manual) PT INR APTT ABG pH ABG pO2 ABG HCO3 ABG O2 Saturation ABG Base Excess ABG Hemoglobin Oxyhemoglobin Sodium Potassium Chloride Carbon Dioxide 15 L BUN 70 H Creatinine 1.7 H Glucose 153 H POC Glucose 169 H 135 H Lactic Acid Calcium Ionized Calcium Phosphorus Magnesium Total Bilirubin AST ALT Alkaline Phosphatase Ammonia Total Creatine Kinase CK-MB (CK-2) CK-MB (CK-2) Rel Index Total Protein Albumin Urine WBC (Auto) Vancomycin Trough Salicylates Acetaminophen Plasma/Serum Alcohol Crossmatch 12/25/19 12/25/19 12/26/19 17:37 23:29 09:47 WBC 22.1 H RBC 2.83 L Hgb 7.9 L Hct 25.5 L MCH RDW 20.0 H Plt Count 894 H Lymph % (Auto) Pine % (Auto) Pine # Baso # Seg Neutrophils % Seg Neuts % (Manual) Lymphocytes % (Manual) Monocytes % (Manual) Seg Neutrophils # Seg Neutrophils # Man Lymphocytes # (Manual) Monocytes # (Manual) Eosinophils # (Manual) Basophils # (Manual) PT INR APTT ABG pH ABG pO2 ABG HCO3 ABG O2 Saturation ABG Base Excess ABG Hemoglobin Oxyhemoglobin Sodium Potassium Chloride Carbon Dioxide BUN Creatinine Glucose POC Glucose 120 H 140 H Lactic Acid Calcium Ionized Calcium Phosphorus Magnesium Total Bilirubin AST ALT Alkaline Phosphatase Ammonia Total Creatine Kinase CK-MB (CK-2) CK-MB (CK-2) Rel Index Total Protein Albumin Urine WBC (Auto) Vancomycin Trough Salicylates Acetaminophen Plasma/Serum Alcohol Crossmatch 12/26/19 12/26/19 12/26/19 09:47 11:46 17:52 WBC RBC Hgb Hct MCH RDW Plt Count Lymph % (Auto) Pine % (Auto) Pine # Baso # Seg Neutrophils % Seg Neuts % (Manual) Lymphocytes % (Manual) Monocytes % (Manual) Seg Neutrophils # Seg Neutrophils # Man Lymphocytes # (Manual) Monocytes # (Manual) Eosinophils # (Manual) Basophils # (Manual) PT INR APTT ABG pH ABG pO2 ABG HCO3 ABG O2 Saturation ABG Base Excess ABG Hemoglobin Oxyhemoglobin Sodium Potassium Chloride Carbon Dioxide 18 L BUN 65 H Creatinine 1.4 H Glucose 132 H POC Glucose 110 H 145 H Lactic Acid Calcium Ionized Calcium Phosphorus Magnesium Total Bilirubin AST ALT Alkaline Phosphatase Ammonia Total Creatine Kinase CK-MB (CK-2) CK-MB (CK-2) Rel Index Total Protein Albumin Urine WBC (Auto) Vancomycin Trough Salicylates Acetaminophen Plasma/Serum Alcohol Crossmatch 12/27/19 12/27/19 12/27/19 00:01 03:42 03:42 WBC 18.0 H RBC 2.86 L Hgb 8.0 L Hct 25.2 L MCH RDW 19.2 H Plt Count 873 H Lymph % (Auto) 8.4 L Pine % (Auto) 7.5 H Pine # 1.4 H Baso # 0.2 H Seg Neutrophils % 82.2 H Seg Neuts % (Manual) Lymphocytes % (Manual) Monocytes % (Manual) Seg Neutrophils # 14.8 H Seg Neutrophils # Man Lymphocytes # (Manual) Monocytes # (Manual) Eosinophils # (Manual) Basophils # (Manual) PT INR APTT ABG pH ABG pO2 ABG HCO3 ABG O2 Saturation ABG Base Excess ABG Hemoglobin Oxyhemoglobin Sodium Potassium Chloride Carbon Dioxide BUN 73 H Creatinine 1.4 H Glucose 119 H POC Glucose 124 H Lactic Acid Calcium Ionized Calcium Phosphorus Magnesium Total Bilirubin AST ALT Alkaline Phosphatase Ammonia Total Creatine Kinase CK-MB (CK-2) CK-MB (CK-2) Rel Index Total Protein Albumin Urine WBC (Auto) Vancomycin Trough Salicylates Acetaminophen Plasma/Serum Alcohol Crossmatch 12/27/19 12/27/19 12/27/19 05:45 11:45 17:29 WBC RBC Hgb Hct MCH RDW Plt Count Lymph % (Auto) Pine % (Auto) Pine # Baso # Seg Neutrophils % Seg Neuts % (Manual) Lymphocytes % (Manual) Monocytes % (Manual) Seg Neutrophils # Seg Neutrophils # Man Lymphocytes # (Manual) Monocytes # (Manual) Eosinophils # (Manual) Basophils # (Manual) PT INR APTT ABG pH ABG pO2 ABG HCO3 ABG O2 Saturation ABG Base Excess ABG Hemoglobin Oxyhemoglobin Sodium Potassium Chloride Carbon Dioxide BUN Creatinine Glucose POC Glucose 131 H 123 H 134 H Lactic Acid Calcium Ionized Calcium Phosphorus Magnesium Total Bilirubin AST ALT Alkaline Phosphatase Ammonia Total Creatine Kinase CK-MB (CK-2) CK-MB (CK-2) Rel Index Total Protein Albumin Urine WBC (Auto) Vancomycin Trough Salicylates Acetaminophen Plasma/Serum Alcohol Crossmatch 12/28/19 12/28/19 12/28/19 00:12 05:14 11:53 WBC RBC Hgb Hct MCH RDW Plt Count Lymph % (Auto) Pine % (Auto) Pine # Baso # Seg Neutrophils % Seg Neuts % (Manual) Lymphocytes % (Manual) Monocytes % (Manual) Seg Neutrophils # Seg Neutrophils # Man Lymphocytes # (Manual) Monocytes # (Manual) Eosinophils # (Manual) Basophils # (Manual) PT INR APTT ABG pH ABG pO2 ABG HCO3 ABG O2 Saturation ABG Base Excess ABG Hemoglobin Oxyhemoglobin Sodium Potassium Chloride Carbon Dioxide BUN Creatinine Glucose POC Glucose 138 H 130 H 146 H Lactic Acid Calcium Ionized Calcium Phosphorus Magnesium Total Bilirubin AST ALT Alkaline Phosphatase Ammonia Total Creatine Kinase CK-MB (CK-2) CK-MB (CK-2) Rel Index Total Protein Albumin Urine WBC (Auto) Vancomycin Trough Salicylates Acetaminophen Plasma/Serum Alcohol Crossmatch 12/28/19 12/29/19 12/29/19 17:39 00:01 18:11 WBC RBC Hgb Hct MCH RDW Plt Count Lymph % (Auto) Pine % (Auto) Pine # Baso # Seg Neutrophils % Seg Neuts % (Manual) Lymphocytes % (Manual) Monocytes % (Manual) Seg Neutrophils # Seg Neutrophils # Man Lymphocytes # (Manual) Monocytes # (Manual) Eosinophils # (Manual) Basophils # (Manual) PT INR APTT ABG pH ABG pO2 ABG HCO3 ABG O2 Saturation ABG Base Excess ABG Hemoglobin Oxyhemoglobin Sodium Potassium Chloride Carbon Dioxide BUN Creatinine Glucose POC Glucose 117 H 139 H 130 H Lactic Acid Calcium Ionized Calcium Phosphorus Magnesium Total Bilirubin AST ALT Alkaline Phosphatase Ammonia Total Creatine Kinase CK-MB (CK-2) CK-MB (CK-2) Rel Index Total Protein Albumin Urine WBC (Auto) Vancomycin Trough Salicylates Acetaminophen Plasma/Serum Alcohol Crossmatch 12/29/19 12/30/19 12/30/19 23:09 00:02 01:06 WBC 16.7 H RBC 2.91 L Hgb 8.2 L Hct 25.4 L MCH RDW 18.7 H Plt Count 708 H Lymph % (Auto) 9.4 L Pine % (Auto) Pine # 0.9 H Baso # Seg Neutrophils % 83.5 H Seg Neuts % (Manual) Lymphocytes % (Manual) Monocytes % (Manual) Seg Neutrophils # 14.0 H Seg Neutrophils # Man Lymphocytes # (Manual) Monocytes # (Manual) Eosinophils # (Manual) Basophils # (Manual) PT INR APTT ABG pH ABG pO2 ABG HCO3 ABG O2 Saturation ABG Base Excess ABG Hemoglobin Oxyhemoglobin Sodium Potassium Chloride Carbon Dioxide BUN Creatinine Glucose POC Glucose 120 H 114 H Lactic Acid Calcium Ionized Calcium Phosphorus Magnesium Total Bilirubin AST ALT Alkaline Phosphatase Ammonia Total Creatine Kinase CK-MB (CK-2) CK-MB (CK-2) Rel Index Total Protein Albumin Urine WBC (Auto) Vancomycin Trough Salicylates Acetaminophen Plasma/Serum Alcohol Crossmatch 12/30/19 12/30/19 12/30/19 01:06 04:23 05:18 WBC RBC Hgb Hct MCH RDW Plt Count Lymph % (Auto) Pine % (Auto) [place] # Baso # Seg Neutrophils % Seg Neuts % (Manual) Lymphocytes % (Manual) Monocytes % (Manual) Seg Neutrophils # Seg Neutrophils # Man Lymphocytes # (Manual) Monocytes # (Manual) Eosinophils # (Manual) Basophils # (Manual) PT INR APTT ABG pH ABG pO2 ABG HCO3 ABG O2 Saturation ABG Base Excess ABG Hemoglobin 8.3 L Oxyhemoglobin Sodium Potassium Chloride Carbon Dioxide BUN 70 H Creatinine Glucose 122 H POC Glucose 130 H Lactic Acid Calcium Ionized Calcium Phosphorus Magnesium Total Bilirubin AST ALT Alkaline Phosphatase Ammonia Total Creatine Kinase CK-MB (CK-2) CK-MB (CK-2) Rel Index Total Protein Albumin Urine WBC (Auto) Vancomycin Trough Salicylates Acetaminophen Plasma/Serum Alcohol Crossmatch 12/30/19 12/30/19 12/30/19 05:40 12:17 17:43 WBC RBC Hgb Hct MCH RDW Plt Count Lymph % (Auto) Pine % (Auto) [place] # Baso # Seg Neutrophils % Seg Neuts % (Manual) Lymphocytes % (Manual) Monocytes % (Manual) Seg Neutrophils # Seg Neutrophils # Man Lymphocytes # (Manual) Monocytes # (Manual) Eosinophils # (Manual) Basophils # (Manual) PT INR APTT ABG pH ABG pO2 ABG HCO3 ABG O2 Saturation ABG Base Excess ABG Hemoglobin Oxyhemoglobin Sodium Potassium Chloride Carbon Dioxide BUN Creatinine Glucose POC Glucose 135 H 132 H 118 H Lactic Acid Calcium Ionized Calcium Phosphorus Magnesium Total Bilirubin AST ALT Alkaline Phosphatase Ammonia Total Creatine Kinase CK-MB (CK-2) CK-MB (CK-2) Rel Index Total Protein Albumin Urine WBC (Auto) Vancomycin Trough Salicylates Acetaminophen Plasma/Serum Alcohol Crossmatch 12/30/19 12/31/19 12/31/19 23:29 05:19 17:50 WBC RBC Hgb Hct MCH RDW Plt Count Lymph % (Auto) Pine % (Auto) [place] # Baso # Seg Neutrophils % Seg Neuts % (Manual) Lymphocytes % (Manual) Monocytes % (Manual) Seg Neutrophils # Seg Neutrophils # Man Lymphocytes # (Manual) Monocytes # (Manual) Eosinophils # (Manual) Basophils # (Manual) PT INR APTT ABG pH ABG pO2 ABG HCO3 ABG O2 Saturation ABG Base Excess ABG Hemoglobin Oxyhemoglobin Sodium Potassium Chloride Carbon Dioxide BUN Creatinine Glucose POC Glucose 114 H 109 H 116 H Lactic Acid Calcium Ionized Calcium Phosphorus Magnesium Total Bilirubin AST ALT Alkaline Phosphatase Ammonia Total Creatine Kinase CK-MB (CK-2) CK-MB (CK-2) Rel Index Total Protein Albumin Urine WBC (Auto) Vancomycin Trough Salicylates Acetaminophen Plasma/Serum Alcohol Crossmatch 01/01/20 01/01/20 01/01/20 00:10 05:19 12:02 WBC RBC Hgb Hct MCH RDW Plt Count Lymph % (Auto) Pine % (Auto) [place] # Baso # Seg Neutrophils % Seg Neuts % (Manual) Lymphocytes % (Manual) Monocytes % (Manual) Seg Neutrophils # Seg Neutrophils # Man Lymphocytes # (Manual) Monocytes # (Manual) Eosinophils # (Manual) Basophils # (Manual) PT INR APTT ABG pH ABG pO2 ABG HCO3 ABG O2 Saturation ABG Base Excess ABG Hemoglobin Oxyhemoglobin Sodium Potassium Chloride Carbon Dioxide BUN Creatinine Glucose POC Glucose 131 H 122 H 136 H Lactic Acid Calcium Ionized Calcium Phosphorus Magnesium Total Bilirubin AST ALT Alkaline Phosphatase Ammonia Total Creatine Kinase CK-MB (CK-2) CK-MB (CK-2) Rel Index Total Protein Albumin Urine WBC (Auto) Vancomycin Trough Salicylates Acetaminophen Plasma/Serum Alcohol Crossmatch 01/02/20 01/02/20 01/02/20 00:24 05:36 11:41 WBC RBC Hgb Hct MCH RDW Plt Count Lymph % (Auto) [place] % (Auto) [place] # Baso # Seg Neutrophils % Seg Neuts % (Manual) Lymphocytes % (Manual) Monocytes % (Manual) Seg Neutrophils # Seg Neutrophils # Man Lymphocytes # (Manual) Monocytes # (Manual) Eosinophils # (Manual) Basophils # (Manual) PT INR APTT ABG pH ABG pO2 ABG HCO3 ABG O2 Saturation ABG Base Excess ABG Hemoglobin Oxyhemoglobin Sodium Potassium Chloride Carbon Dioxide BUN Creatinine Glucose POC Glucose 119 H 109 H 125 H Lactic Acid Calcium Ionized Calcium Phosphorus Magnesium Total Bilirubin AST ALT Alkaline Phosphatase Ammonia Total Creatine Kinase CK-MB (CK-2) CK-MB (CK-2) Rel Index Total Protein Albumin Urine WBC (Auto) Vancomycin Trough Salicylates Acetaminophen Plasma/Serum Alcohol Crossmatch Allied health notes reviewed: nursing
[2020-01-02] MEDS: SCOPOLAMINE TRANSDERMAL PATCH 72 HR TD SCH (15:10)
[2020-01-02] MEDS: QUEtiapine 100 MG TAB PO SCH (21:49)
[2020-01-03] MEDS: GLYCOPYRROLATE 1 MG TAB PO SCH ×3 (07:43→21:10)
[2020-01-03] MEDS: SERTRALINE 50 MG TAB PO SCH (09:00)
[2020-01-03] MEDS: QUEtiapine 200 MG TAB PO SCH (09:01)
[2020-01-03] MEDS: hydrOXYzine PAMOATE 25 MG CAP PO SCH ×2 (09:01→21:10)
[2020-01-03] MEDS: LANSOPRAZOLE 30 MG SOLUTAB FEEDTUBE SCH (09:01)
[2020-01-03] MEDS: MIRTAZAPINE 30 MG TAB PO SCH (09:02)
[2020-01-03] MEDS: TAMSULOSIN 0.4 MG CAP PO SCH (09:02)
[2020-01-03] MEDS: levETIRAcetam 500 MG/5 ML ORAL LIQD PO SCH ×2 (09:08→21:10)
--- NOTE | 2020-01-03 10:38 | Progress Note ---
Assessment and Plan Acute cardiopulmonary arrest with ROSC Acute hypoxemic respiratory failure on MVS MRSA Bacteremia MRSA pneumonia Acute wtcguamek-irbvi-iszrur encephalopathy Metabolic acidosis/alcoholic acidosis/Lactic acidosis( resolved) Ischemic hepatitis Leucocytosis - persistent Erythrocytosis Tobacco use disorder Alcohol use Disorder -CBC, BMP in am -Trach care, airway clearance, secretion management( continue scopolamine patch and Robinul) -CXR, ABG prn -Weaning trials as tolerated -Continue contact isolation for MRSA -Continue all care as documented below. -Continue with MVS, Lung protective strategies, monitor airway pressures -VAP bundle addressed -Continue aspiration precautions, HOB>40 -Continue daily assessment for readiness for SBT -Continue Stress ulcer prophylaxis -Continue enteric nutritional support at goal rate. -Continue to monitor glycemic control, with target blood glucose 140-180 mg/dL while critically ill. -Avoid hypoglycemia - Continue to wean supplemental oxygen for target O2 sat's > 90% -Continue thiamine, multivitamin and electrolyte replacement -Continue to avoid nephrotoxins, adjust all medications for GFR and CrCL - Continue bronchodilators with pulmonary hygiene - Continue prn analgesia per CPOT score - Continue to maintain of sleep-wake cycle, avoid delirium - PT/OT/ROM exercises - Continue mobility protocol and skin assessment per protocol for pressure ulcer prevention - Continue to monitor for clinical seizures - continue other care per attending / other consultants CONDITION: FAIR PROGNOSIS: GUARDED CODE STATUS: DNAR Subjective Date of service: 01/03/20 Principal diagnosis: Ac cardiopulmonary arrest; Ac hypoxemic resp failure; Acute encephalopathy Interval history: Patient is seen today for: Acute cardiopulmonary arrest with ROSC; Acute hypoxemic respiratory failure; Acute metabolic-toxic encephalopathy; Ischemic hepatitis; Leucocytosis with lactic acidosis; Tobacco use disorder; Alcohol use Disorder; s/p tracheostomy; s/p PEG Seen and examined at bedside; 24hour events reviewed; nursing and respiratory care staff consulted; no adverse overnight events reported to me; resting peacefully in bed; tolerating weaning trials- mental status changes persist, but more awake and will track voice; no fevers s/p trach to MVS PUI?: No COVID19: Negative Objective Vital Signs - 12hr 01/02/20 01/02/20 01/03/20 23:00 23:09 00:00 Temperature 98.9 F Pulse Rate 114 H 118 H 116 H Pulse Rate [ From Monitor] Respiratory 16 15 20 Rate Blood Pressure 111/75 111/75 115/82 O2 Sat by Pulse 100 100 100 Oximetry O2 Sat by Pulse Oximetry [ Assessment] 01/03/20 01/03/20 01/03/20 00:40 01:00 02:00 Temperature Pulse Rate 114 H 114 H 106 H Pulse Rate [ From Monitor] Respiratory 19 17 Rate Blood Pressure 115/82 118/88 124/83 O2 Sat by Pulse 100 100 100 Oximetry O2 Sat by Pulse Oximetry [ Assessment] 01/03/20 01/03/20 01/03/20 03:00 03:58 04:00 Temperature 99.0 F Pulse Rate 100 H 96 H 99 H Pulse Rate [ From Monitor] Respiratory 18 17 Rate Blood Pressure 135/85 132/85 132/85 O2 Sat by Pulse 100 100 100 Oximetry O2 Sat by Pulse 100 Oximetry [ Assessment] 01/03/20 01/03/20 01/03/20 05:00 06:00 07:00 Temperature Pulse Rate 100 H 100 H 108 H Pulse Rate [ From Monitor] Respiratory 16 21 21 Rate Blood Pressure 124/79 130/85 144/88 O2 Sat by Pulse 100 100 100 Oximetry O2 Sat by Pulse Oximetry [ Assessment] 01/03/20 01/03/20 01/03/20 08:00 08:17 09:00 Temperature 98.7 F Pulse Rate 108 H 106 H 109 H Pulse Rate [ 110 H From Monitor] Respiratory 19 22 18 Rate Blood Pressure 130/86 130/86 132/89 O2 Sat by Pulse 100 100 100 Oximetry O2 Sat by Pulse 100 Oximetry [ Assessment] 01/03/20 10:00 Temperature Pulse Rate 117 H Pulse Rate [ From Monitor] Respiratory 21 Rate Blood Pressure 142/85 O2 Sat by Pulse 100 Oximetry O2 Sat by Pulse Oximetry [ Assessment] Constitutional: no acute distress, lethargic Eyes: non-icteric ENT: oropharynx moist, other (s/p trach, copious oral secretions) Neck: supple, no lymphadenopathy, no JVD Effort: mildly labored Ascultation: Bilateral: diminished breath sounds, rhonchi Percussion: Bilateral: not dull Cardiovascular: regular rate and rhythm (tachycardia), other (S1,S2) Gastrointestinal: normoactive bowel sounds, soft, non-tender, non-distended Integumentary: normal Extremities: no cyanosis, no edema, pulses normal, no ischemia or petechiae Neurologic: unable to assess, other (awake but not tracking voice ) Psychiatric: other (Psychiatric: Unable to assess) CBC and BMP: 01/07/20 04:12 01/07/20 04:12 ABG, PT/INR, D-dimer: ABG ABG pH 7.440 pH Units (7.350-7.450) 12/30/19 04:23 ABG pCO2 36.6 mm Hg 12/30/19 04:23 ABG pO2 89.9 mm Hg (80.0-90.0) 12/30/19 04:23 ABG O2 Saturation 97.3 % (95.0-99.0) 12/30/19 04:23 PT/INR, D-dimer PT 17.0 Sec. (12.2-14.9) H 11/23/19 03:47 INR 1.36 (0.87-1.13) H 11/23/19 03:47 Abnormal lab findings: Abnormal Labs 11/22/19 11/22/19 11/22/19 23:17 23:18 23:27 WBC 21.2 H RBC 3.59 L Hgb 9.8 L Hct MCH 27 L RDW 18.6 H Plt Count 454 H Lymph % (Auto) [place] % (Auto) [place] # Baso # Seg Neutrophils % Seg Neuts % (Manual) 86.0 H Lymphocytes % (Manual) 9.0 L Monocytes % (Manual) Seg Neutrophils # Seg Neutrophils # Man 18.2 H Lymphocytes # (Manual) Monocytes # (Manual) 1.1 H Eosinophils # (Manual) Basophils # (Manual) PT INR APTT ABG pH ABG pO2 ABG HCO3 ABG O2 Saturation ABG Base Excess ABG Hemoglobin Oxyhemoglobin Sodium Potassium Chloride Carbon Dioxide BUN Creatinine Glucose POC Glucose 53 L Lactic Acid Calcium Ionized Calcium Phosphorus Magnesium Total Bilirubin AST ALT Alkaline Phosphatase Ammonia Total Creatine Kinase CK-MB (CK-2) CK-MB (CK-2) Rel Index Total Protein Albumin Urine WBC (Auto) 40.0 H Vancomycin Trough Salicylates Acetaminophen Plasma/Serum Alcohol Crossmatch 11/22/19 11/22/19 11/22/19 23:27 23:27 23:27 WBC RBC Hgb Hct MCH RDW Plt Count Lymph % (Auto) [place] % (Auto) [place] # Baso # Seg Neutrophils % Seg Neuts % (Manual) Lymphocytes % (Manual) Monocytes % (Manual) Seg Neutrophils # Seg Neutrophils # Man Lymphocytes # (Manual) Monocytes # (Manual) Eosinophils # (Manual) Basophils # (Manual) PT INR APTT ABG pH ABG pO2 ABG HCO3 ABG O2 Saturation ABG Base Excess ABG Hemoglobin Oxyhemoglobin Sodium Potassium 2.4 L* Chloride 85.1 L Carbon Dioxide 19 L BUN Creatinine 0.5 L Glucose 261 H POC Glucose Lactic Acid Calcium Ionized Calcium Phosphorus Magnesium Total Bilirubin AST 609 H ALT 152 H Alkaline Phosphatase 160 H Ammonia 117.0 H Total Creatine Kinase 139 H CK-MB (CK-2) 8.3 H CK-MB (CK-2) Rel Index 5.9 H Total Protein Albumin 3.6 L Urine WBC (Auto) Vancomycin Trough Salicylates < 0.3 L Acetaminophen Plasma/Serum Alcohol Crossmatch 11/22/19 11/22/19 11/23/19 23:27 23:27 01:10 WBC RBC Hgb Hct MCH RDW Plt Count Lymph % (Auto) [place] % (Auto) [place] # Baso # Seg Neutrophils % Seg Neuts % (Manual) Lymphocytes % (Manual) Monocytes % (Manual) Seg Neutrophils # Seg Neutrophils # Man Lymphocytes # (Manual) Monocytes # (Manual) Eosinophils # (Manual) Basophils # (Manual) PT INR APTT ABG pH 7.273 L ABG pO2 209.7 H ABG HCO3 ABG O2 Saturation 99.2 H ABG Base Excess -3.9 L ABG Hemoglobin 10.6 L Oxyhemoglobin 93.9 L Sodium Potassium Chloride Carbon Dioxide BUN Creatinine Glucose POC Glucose Lactic Acid Calcium Ionized Calcium Phosphorus Magnesium Total Bilirubin AST ALT Alkaline Phosphatase Ammonia Total Creatine Kinase CK-MB (CK-2) CK-MB (CK-2) Rel Index Total Protein Albumin Urine WBC (Auto) Vancomycin Trough Salicylates Acetaminophen < 5.0 L Plasma/Serum Alcohol 0.08 H Crossmatch 11/23/19 11/23/19 11/23/19 01:19 01:19 03:47 WBC RBC Hgb Hct MCH RDW Plt Count Lymph % (Auto) [place] % (Auto) [place] # Baso # Seg Neutrophils % Seg Neuts % (Manual) Lymphocytes % (Manual) Monocytes % (Manual) Seg Neutrophils # Seg Neutrophils # Man Lymphocytes # (Manual) Monocytes # (Manual) Eosinophils # (Manual) Basophils # (Manual) PT 16.3 H INR 1.29 H APTT ABG pH ABG pO2 ABG HCO3 ABG O2 Saturation ABG Base Excess ABG Hemoglobin Oxyhemoglobin Sodium Potassium Chloride Carbon Dioxide BUN Creatinine Glucose POC Glucose Lactic Acid 2.10 H* 5.00 H* Calcium Ionized Calcium Phosphorus Magnesium Total Bilirubin AST ALT Alkaline Phosphatase Ammonia Total Creatine Kinase CK-MB (CK-2) CK-MB (CK-2) Rel Index Total Protein Albumin Urine WBC (Auto) Vancomycin Trough Salicylates Acetaminophen Plasma/Serum Alcohol Crossmatch 11/23/19 11/23/19 11/23/19 03:47 03:47 04:53 WBC RBC Hgb 9.4 L Hct MCH RDW Plt Count Lymph % (Auto) [place] % (Auto) [place] # Baso # Seg Neutrophils % Seg Neuts % (Manual) Lymphocytes % (Manual) Monocytes % (Manual) Seg Neutrophils # Seg Neutrophils # Man Lymphocytes # (Manual) Monocytes # (Manual) Eosinophils # (Manual) Basophils # (Manual) PT 17.0 H INR 1.36 H APTT 128.2 H* ABG pH ABG pO2 ABG HCO3 ABG O2 Saturation ABG Base Excess ABG Hemoglobin Oxyhemoglobin Sodium Potassium Chloride Carbon Dioxide 18 L BUN Creatinine 0.5 L Glucose 105 H POC Glucose Lactic Acid Calcium 8.3 L Ionized Calcium Phosphorus 2.40 L Magnesium Total Bilirubin 1.30 H AST 761 H ALT 158 H Alkaline Phosphatase 143 H Ammonia Total Creatine Kinase CK-MB (CK-2) CK-MB (CK-2) Rel Index Total Protein Albumin 2.8 L Urine WBC (Auto) Vancomycin Trough Salicylates Acetaminophen Plasma/Serum Alcohol Crossmatch 11/23/19 11/23/19 11/23/19 05:12 06:32 06:32 WBC 16.8 H RBC 3.31 L Hgb 8.9 L Hct 28.7 L MCH 27 L RDW 18.6 H Plt Count Lymph % (Auto) [place] % (Auto) [place] # Baso # Seg Neutrophils % Seg Neuts % (Manual) 94.0 H Lymphocytes % (Manual) 1.0 L Monocytes % (Manual) Seg Neutrophils # Seg Neutrophils # Man 15.8 H Lymphocytes # (Manual) 0.2 L Monocytes # (Manual) Eosinophils # (Manual) Basophils # (Manual) PT INR APTT ABG pH ABG pO2 ABG HCO3 ABG O2 Saturation ABG Base Excess -3.2 L ABG Hemoglobin 9.0 L Oxyhemoglobin 93.6 L Sodium Potassium Chloride Carbon Dioxide BUN Creatinine Glucose POC Glucose Lactic Acid Calcium Ionized Calcium 4.5 L Phosphorus Magnesium Total Bilirubin AST ALT Alkaline Phosphatase Ammonia Total Creatine Kinase CK-MB (CK-2) CK-MB (CK-2) Rel Index Total Protein Albumin Urine WBC (Auto) Vancomycin Trough Salicylates Acetaminophen Plasma/Serum Alcohol Crossmatch 11/23/19 11/24/19 11/24/19 06:32 04:35 04:35 WBC RBC Hgb Hct MCH RDW Plt Count Lymph % (Auto) [place] % (Auto) [place] # Baso # Seg Neutrophils % Seg Neuts % (Manual) Lymphocytes % (Manual) Monocytes % (Manual) Seg Neutrophils # Seg Neutrophils # Man Lymphocytes # (Manual) Monocytes # (Manual) Eosinophils # (Manual) Basophils # (Manual) PT INR APTT ABG pH ABG pO2 ABG HCO3 ABG O2 Saturation ABG Base Excess ABG Hemoglobin Oxyhemoglobin Sodium Potassium Chloride Carbon Dioxide BUN Creatinine Glucose POC Glucose Lactic Acid 3.30 H* Calcium Ionized Calcium Phosphorus Magnesium 1.40 L Total Bilirubin AST ALT Alkaline Phosphatase Ammonia 98.0 H Total Creatine Kinase CK-MB (CK-2) CK-MB (CK-2) Rel Index Total Protein Albumin Urine WBC (Auto) Vancomycin Trough Salicylates Acetaminophen Plasma/Serum Alcohol Crossmatch 11/24/19 11/25/19 11/25/19 05:22 04:34 05:05 WBC 17.3 H RBC 2.88 L Hgb 7.8 L Hct 24.6 L MCH 27 L RDW 18.5 H Plt Count Lymph % (Auto) 7.7 L [place] % (Auto) 9.7 H [place] # 1.7 H Baso # Seg Neutrophils % 82.2 H Seg Neuts % (Manual) Lymphocytes % (Manual) Monocytes % (Manual) Seg Neutrophils # 14.2 H Seg Neutrophils # Man Lymphocytes # (Manual) Monocytes # (Manual) Eosinophils # (Manual) Basophils # (Manual) PT INR APTT ABG pH 7.475 H ABG pO2 ABG HCO3 29.4 H 32.3 H ABG O2 Saturation ABG Base Excess 5.4 H 6.9 H ABG Hemoglobin 9.0 L 10.6 L Oxyhemoglobin 94.3 L Sodium Potassium Chloride Carbon Dioxide BUN Creatinine Glucose POC Glucose Lactic Acid Calcium Ionized Calcium Phosphorus Magnesium Total Bilirubin AST ALT Alkaline Phosphatase Ammonia Total Creatine Kinase CK-MB (CK-2) CK-MB (CK-2) Rel Index Total Protein Albumin Urine WBC (Auto) Vancomycin Trough Salicylates Acetaminophen Plasma/Serum Alcohol Crossmatch 11/25/19 11/25/19 11/26/19 05:05 22:46 03:31 WBC RBC Hgb Hct MCH RDW Plt Count Lymph % (Auto) [place] % (Auto) [place] # Baso # Seg Neutrophils % Seg Neuts % (Manual) Lymphocytes % (Manual) Monocytes % (Manual) Seg Neutrophils # Seg Neutrophils # Man Lymphocytes # (Manual) Monocytes # (Manual) Eosinophils # (Manual) Basophils # (Manual) PT INR APTT ABG pH 7.459 H ABG pO2 ABG HCO3 34.2 H ABG O2 Saturation ABG Base Excess 9.4 H ABG Hemoglobin 7.6 L Oxyhemoglobin 94.8 L Sodium 152 H D 147 H Potassium 2.3 L* D 2.8 L* D Chloride 107.8 H Carbon Dioxide 31 H D 33 H BUN Creatinine 0.6 L 0.6 L Glucose 148 H 177 H POC Glucose Lactic Acid Calcium Ionized Calcium Phosphorus Magnesium Total Bilirubin AST 105 H ALT 71 H Alkaline Phosphatase 155 H Ammonia Total Creatine Kinase CK-MB (CK-2) CK-MB (CK-2) Rel Index Total Protein 5.2 L D Albumin 2.9 L Urine WBC (Auto) Vancomycin Trough Salicylates Acetaminophen Plasma/Serum Alcohol Crossmatch 11/26/19 11/26/19 11/27/19 08:24 08:24 04:20 WBC 12.0 H RBC 3.00 L Hgb 8.0 L 9.3 L Hct 25.9 L 29.7 L MCH 27 L RDW 18.5 H Plt Count Lymph % (Auto) [place] % (Auto) [place] # Baso # Seg Neutrophils % Seg Neuts % (Manual) 89.0 H Lymphocytes % (Manual) 4.0 L Monocytes % (Manual) Seg Neutrophils # Seg Neutrophils # Man 10.7 H Lymphocytes # (Manual) 0.5 L Monocytes # (Manual) Eosinophils # (Manual) Basophils # (Manual) PT INR APTT ABG pH ABG pO2 ABG HCO3 ABG O2 Saturation ABG Base Excess ABG Hemoglobin Oxyhemoglobin Sodium 146 H Potassium 3.4 L D Chloride Carbon Dioxide BUN Creatinine 0.5 L Glucose 165 H POC Glucose Lactic Acid Calcium Ionized Calcium Phosphorus Magnesium Total Bilirubin AST 57 H ALT Alkaline Phosphatase 166 H Ammonia Total Creatine Kinase CK-MB (CK-2) CK-MB (CK-2) Rel Index Total Protein Albumin 2.9 L Urine WBC (Auto) Vancomycin Trough Salicylates Acetaminophen Plasma/Serum Alcohol Crossmatch 11/27/19 11/27/19 11/27/19 04:28 04:28 04:42 WBC RBC Hgb Hct MCH RDW Plt Count Lymph % (Auto) [place] % (Auto) [place] # Baso # Seg Neutrophils % Seg Neuts % (Manual) Lymphocytes % (Manual) Monocytes % (Manual) Seg Neutrophils # Seg Neutrophils # Man Lymphocytes # (Manual) Monocytes # (Manual) Eosinophils # (Manual) Basophils # (Manual) PT INR APTT ABG pH 7.470 H ABG pO2 74.0 L ABG HCO3 33.8 H ABG O2 Saturation ABG Base Excess 9.1 H ABG Hemoglobin 8.7 L Oxyhemoglobin 94.7 L Sodium 146 H Potassium 2.9 L* Chloride Carbon Dioxide BUN 25 H Creatinine Glucose 213 H POC Glucose Lactic Acid Calcium Ionized Calcium Phosphorus 1.00 L Magnesium Total Bilirubin AST ALT Alkaline Phosphatase Ammonia Total Creatine Kinase CK-MB (CK-2) CK-MB (CK-2) Rel Index Total Protein Albumin Urine WBC (Auto) Vancomycin Trough Salicylates Acetaminophen Plasma/Serum Alcohol Crossmatch 11/27/19 11/27/19 11/27/19 05:37 12:20 15:46 WBC RBC Hgb Hct MCH RDW Plt Count Lymph % (Auto) [place] % (Auto) [place] # Baso # Seg Neutrophils % Seg Neuts % (Manual) Lymphocytes % (Manual) Monocytes % (Manual) Seg Neutrophils # Seg Neutrophils # Man Lymphocytes # (Manual) Monocytes # (Manual) Eosinophils # (Manual) Basophils # (Manual) PT INR APTT ABG pH ABG pO2 ABG HCO3 ABG O2 Saturation ABG Base Excess ABG Hemoglobin Oxyhemoglobin Sodium 146 H Potassium 3.5 L D Chloride Carbon Dioxide BUN 24 H Creatinine 0.6 L Glucose 187 H POC Glucose 117 H 220 H Lactic Acid Calcium Ionized Calcium Phosphorus Magnesium Total Bilirubin AST ALT Alkaline Phosphatase Ammonia Total Creatine Kinase CK-MB (CK-2) CK-MB (CK-2) Rel Index Total Protein Albumin Urine WBC (Auto) Vancomycin Trough Salicylates Acetaminophen Plasma/Serum Alcohol Crossmatch 11/27/19 11/28/19 11/28/19 17:28 05:00 05:02 WBC RBC Hgb Hct MCH RDW Plt Count Lymph % (Auto) [place] % (Auto) [place] # Baso # Seg Neutrophils % Seg Neuts % (Manual) Lymphocytes % (Manual) Monocytes % (Manual) Seg Neutrophils # Seg Neutrophils # Man Lymphocytes # (Manual) Monocytes # (Manual) Eosinophils # (Manual) Basophils # (Manual) PT INR APTT ABG pH ABG pO2 72.4 L ABG HCO3 33.6 H ABG O2 Saturation 94.1 L ABG Base Excess 7.3 H ABG Hemoglobin Oxyhemoglobin 91.8 L Sodium 146 H Potassium 3.3 L Chloride Carbon Dioxide BUN 25 H Creatinine 0.6 L Glucose 176 H POC Glucose 198 H Lactic Acid Calcium Ionized Calcium Phosphorus Magnesium Total Bilirubin AST ALT Alkaline Phosphatase Ammonia Total Creatine Kinase CK-MB (CK-2) CK-MB (CK-2) Rel Index Total Protein Albumin Urine WBC (Auto) Vancomycin Trough Salicylates Acetaminophen Plasma/Serum Alcohol Crossmatch 11/28/19 11/28/19 11/29/19 05:02 18:55 10:43 WBC 15.2 H 19.0 H RBC 3.06 L 3.01 L Hgb 8.3 L 8.3 L Hct 27.0 L 26.4 L MCH 27 L RDW 19.0 H 19.7 H Plt Count 479 H 611 H Lymph % (Auto) [place] % (Auto) [place] # Baso # Seg Neutrophils % Seg Neuts % (Manual) 92.0 H Lymphocytes % (Manual) 2.0 L Monocytes % (Manual) Seg Neutrophils # Seg Neutrophils # Man 14.0 H Lymphocytes # (Manual) 0.3 L Monocytes # (Manual) Eosinophils # (Manual) Basophils # (Manual) PT INR APTT ABG pH ABG pO2 ABG HCO3 ABG O2 Saturation ABG Base Excess ABG Hemoglobin Oxyhemoglobin Sodium Potassium Chloride Carbon Dioxide BUN Creatinine Glucose POC Glucose 138 H Lactic Acid Calcium Ionized Calcium Phosphorus Magnesium Total Bilirubin AST ALT Alkaline Phosphatase Ammonia Total Creatine Kinase CK-MB (CK-2) CK-MB (CK-2) Rel Index Total Protein Albumin Urine WBC (Auto) Vancomycin Trough Salicylates Acetaminophen Plasma/Serum Alcohol Crossmatch 11/29/19 11/29/19 11/29/19 10:43 12:27 19:25 WBC RBC Hgb Hct MCH RDW Plt Count Lymph % (Auto) [place] % (Auto) [place] # Baso # Seg Neutrophils % Seg Neuts % (Manual) Lymphocytes % (Manual) Monocytes % (Manual) Seg Neutrophils # Seg Neutrophils # Man Lymphocytes # (Manual) Monocytes # (Manual) Eosinophils # (Manual) Basophils # (Manual) PT INR APTT ABG pH ABG pO2 ABG HCO3 ABG O2 Saturation ABG Base Excess ABG Hemoglobin Oxyhemoglobin Sodium Potassium 2.8 L* Chloride Carbon Dioxide BUN 20 H Creatinine 0.5 L Glucose 121 H POC Glucose 128 H 120 H Lactic Acid Calcium Ionized Calcium Phosphorus Magnesium Total Bilirubin AST ALT Alkaline Phosphatase Ammonia Total Creatine Kinase CK-MB (CK-2) CK-MB (CK-2) Rel Index Total Protein Albumin Urine WBC (Auto) Vancomycin Trough Salicylates Acetaminophen Plasma/Serum Alcohol Crossmatch 11/29/19 11/30/19 11/30/19 23:46 04:10 05:02 WBC RBC Hgb Hct MCH RDW Plt Count Lymph % (Auto) [place] % (Auto) [place] # Baso # Seg Neutrophils % Seg Neuts % (Manual) Lymphocytes % (Manual) Monocytes % (Manual) Seg Neutrophils # Seg Neutrophils # Man Lymphocytes # (Manual) Monocytes # (Manual) Eosinophils # (Manual) Basophils # (Manual) PT INR APTT ABG pH ABG pO2 76.3 L ABG HCO3 32.5 H ABG O2 Saturation ABG Base Excess 6.9 H ABG Hemoglobin 8.0 L Oxyhemoglobin 92.6 L Sodium Potassium Chloride Carbon Dioxide BUN Creatinine Glucose POC Glucose 116 H 128 H Lactic Acid Calcium Ionized Calcium Phosphorus Magnesium Total Bilirubin AST ALT Alkaline Phosphatase Ammonia Total Creatine Kinase CK-MB (CK-2) CK-MB (CK-2) Rel Index Total Protein Albumin Urine WBC (Auto) Vancomycin Trough Salicylates Acetaminophen Plasma/Serum Alcohol Crossmatch 11/30/19 11/30/19 11/30/19 05:25 05:25 12:59 WBC 18.4 H RBC 3.10 L Hgb 8.5 L Hct 27.5 L MCH 27 L RDW 20.9 H Plt Count 691 H Lymph % (Auto) 7.1 L [place] % (Auto) 7.7 H [place] # 1.4 H Baso # Seg Neutrophils % 83.4 H Seg Neuts % (Manual) Lymphocytes % (Manual) Monocytes % (Manual) Seg Neutrophils # 15.4 H Seg Neutrophils # Man Lymphocytes # (Manual) Monocytes # (Manual) Eosinophils # (Manual) Basophils # (Manual) PT INR APTT ABG pH ABG pO2 ABG HCO3 ABG O2 Saturation ABG Base Excess ABG Hemoglobin Oxyhemoglobin Sodium 146 H Potassium Chloride 107.2 H Carbon Dioxide BUN Creatinine 0.5 L Glucose 132 H POC Glucose 124 H Lactic Acid Calcium Ionized Calcium Phosphorus Magnesium Total Bilirubin AST 246 H ALT 274 H Alkaline Phosphatase 203 H Ammonia Total Creatine Kinase CK-MB (CK-2) CK-MB (CK-2) Rel Index Total Protein 5.4 L Albumin 2.9 L Urine WBC (Auto) Vancomycin Trough Salicylates Acetaminophen Plasma/Serum Alcohol Crossmatch 11/30/19 12/01/19 12/01/19 17:53 00:05 05:10 WBC RBC Hgb Hct MCH RDW Plt Count Lymph % (Auto) [place] % (Auto) [place] # Baso # Seg Neutrophils % Seg Neuts % (Manual) Lymphocytes % (Manual) Monocytes % (Manual) Seg Neutrophils # Seg Neutrophils # Man Lymphocytes # (Manual) Monocytes # (Manual) Eosinophils # (Manual) Basophils # (Manual) PT INR APTT ABG pH ABG pO2 ABG HCO3 ABG O2 Saturation ABG Base Excess ABG Hemoglobin Oxyhemoglobin Sodium Potassium Chloride Carbon Dioxide BUN Creatinine Glucose POC Glucose 113 H 143 H 145 H Lactic Acid Calcium Ionized Calcium Phosphorus Magnesium Total Bilirubin AST ALT Alkaline Phosphatase Ammonia Total Creatine Kinase CK-MB (CK-2) CK-MB (CK-2) Rel Index Total Protein Albumin Urine WBC (Auto) Vancomycin Trough Salicylates Acetaminophen Plasma/Serum Alcohol Crossmatch 12/01/19 12/01/19 12/01/19 05:33 08:23 08:23 WBC 22.7 H RBC 2.88 L Hgb 7.9 L Hct 25.2 L MCH 27 L RDW 21.0 H Plt Count 732 H Lymph % (Auto) [place] % (Auto) [place] # Baso # Seg Neutrophils % Seg Neuts % (Manual) 91.0 H Lymphocytes % (Manual) 3.0 L Monocytes % (Manual) Seg Neutrophils # Seg Neutrophils # Man 20.7 H Lymphocytes # (Manual) 0.7 L Monocytes # (Manual) 1.1 H Eosinophils # (Manual) Basophils # (Manual) PT INR APTT ABG pH ABG pO2 68.6 L ABG HCO3 34.1 H ABG O2 Saturation ABG Base Excess 9.0 H ABG Hemoglobin 6.5 L Oxyhemoglobin 94.7 L Sodium Potassium Chloride Carbon Dioxide BUN Creatinine 0.5 L Glucose 125 H POC Glucose Lactic Acid Calcium Ionized Calcium Phosphorus Magnesium Total Bilirubin AST ALT Alkaline Phosphatase Ammonia Total Creatine Kinase CK-MB (CK-2) CK-MB (CK-2) Rel Index Total Protein Albumin Urine WBC (Auto) Vancomycin Trough Salicylates Acetaminophen Plasma/Serum Alcohol Crossmatch 12/01/19 12/01/19 12/01/19 13:21 17:54 20:59 WBC RBC Hgb Hct MCH RDW Plt Count Lymph % (Auto) [place] % (Auto) [place] # Baso # Seg Neutrophils % Seg Neuts % (Manual) Lymphocytes % (Manual) Monocytes % (Manual) Seg Neutrophils # Seg Neutrophils # Man Lymphocytes # (Manual) Monocytes # (Manual) Eosinophils # (Manual) Basophils # (Manual) PT INR APTT ABG pH ABG pO2 78.3 L ABG HCO3 33.8 H ABG O2 Saturation 94.9 L ABG Base Excess 7.9 H ABG Hemoglobin 11.5 L Oxyhemoglobin 92.3 L Sodium Potassium Chloride Carbon Dioxide BUN Creatinine Glucose POC Glucose 111 H 115 H Lactic Acid Calcium Ionized Calcium Phosphorus Magnesium Total Bilirubin AST ALT Alkaline Phosphatase Ammonia Total Creatine Kinase CK-MB (CK-2) CK-MB (CK-2) Rel Index Total Protein Albumin Urine WBC (Auto) Vancomycin Trough Salicylates Acetaminophen Plasma/Serum Alcohol Crossmatch 12/02/19 12/03/19 12/04/19 12:55 20:00 04:26 WBC 15.2 H RBC 2.69 L Hgb 7.4 L Hct 23.6 L MCH 27 L RDW 19.9 H Plt Count 838 H Lymph % (Auto) [place] % (Auto) [place] # Baso # Seg Neutrophils % Seg Neuts % (Manual) Lymphocytes % (Manual) Monocytes % (Manual) Seg Neutrophils # Seg Neutrophils # Man Lymphocytes # (Manual) Monocytes # (Manual) Eosinophils # (Manual) Basophils # (Manual) PT INR APTT ABG pH ABG pO2 68.3 L ABG HCO3 33.5 H ABG O2 Saturation 93.5 L ABG Base Excess 8.4 H ABG Hemoglobin 7.3 L Oxyhemoglobin 90.9 L Sodium Potassium Chloride Carbon Dioxide BUN Creatinine Glucose POC Glucose 107 H Lactic Acid Calcium Ionized Calcium Phosphorus Magnesium Total Bilirubin AST ALT Alkaline Phosphatase Ammonia Total Creatine Kinase CK-MB (CK-2) CK-MB (CK-2) Rel Index Total Protein Albumin Urine WBC (Auto) Vancomycin Trough Salicylates Acetaminophen Plasma/Serum Alcohol Crossmatch 12/04/19 12/04/19 12/04/19 04:26 07:45 12:02 WBC 15.9 H RBC 2.88 L Hgb 7.9 L Hct 25.1 L MCH RDW 20.4 H Plt Count 839 H Lymph % (Auto) 11.3 L [place] % (Auto) 15.2 H [place] # 2.4 H Baso # Seg Neutrophils % 72.4 H Seg Neuts % (Manual) Lymphocytes % (Manual) Monocytes % (Manual) Seg Neutrophils # 11.5 H Seg Neutrophils # Man Lymphocytes # (Manual) Monocytes # (Manual) Eosinophils # (Manual) Basophils # (Manual) PT INR APTT ABG pH ABG pO2 ABG HCO3 ABG O2 Saturation ABG Base Excess ABG Hemoglobin Oxyhemoglobin Sodium Potassium Chloride 96.5 L Carbon Dioxide BUN 21 H Creatinine 0.6 L Glucose 107 H POC Glucose 138 H Lactic Acid Calcium Ionized Calcium Phosphorus Magnesium Total Bilirubin AST ALT Alkaline Phosphatase Ammonia Total Creatine Kinase CK-MB (CK-2) CK-MB (CK-2) Rel Index Total Protein Albumin Urine WBC (Auto) Vancomycin Trough Salicylates Acetaminophen Plasma/Serum Alcohol Crossmatch 12/04/19 12/05/19 12/05/19 18:16 11:55 18:36 WBC RBC Hgb Hct MCH RDW Plt Count Lymph % (Auto) [place] % (Auto) [place] # Baso # Seg Neutrophils % Seg Neuts % (Manual) Lymphocytes % (Manual) Monocytes % (Manual) Seg Neutrophils # Seg Neutrophils # Man Lymphocytes # (Manual) Monocytes # (Manual) Eosinophils # (Manual) Basophils # (Manual) PT INR APTT ABG pH ABG pO2 ABG HCO3 ABG O2 Saturation ABG Base Excess ABG Hemoglobin Oxyhemoglobin Sodium Potassium Chloride Carbon Dioxide BUN Creatinine Glucose POC Glucose 135 H 125 H 135 H Lactic Acid Calcium Ionized Calcium Phosphorus Magnesium Total Bilirubin AST ALT Alkaline Phosphatase Ammonia Total Creatine Kinase CK-MB (CK-2) CK-MB (CK-2) Rel Index Total Protein Albumin Urine WBC (Auto) Vancomycin Trough Salicylates Acetaminophen Plasma/Serum Alcohol Crossmatch 12/05/19 12/06/19 12/06/19 23:30 04:14 05:43 WBC RBC Hgb Hct MCH RDW Plt Count Lymph % (Auto) [place] % (Auto) [place] # Baso # Seg Neutrophils % Seg Neuts % (Manual) Lymphocytes % (Manual) Monocytes % (Manual) Seg Neutrophils # Seg Neutrophils # Man Lymphocytes # (Manual) Monocytes # (Manual) Eosinophils # (Manual) Basophils # (Manual) PT INR APTT ABG pH ABG pO2 ABG HCO3 ABG O2 Saturation ABG Base Excess ABG Hemoglobin Oxyhemoglobin Sodium Potassium 5.6 H Chloride 95.0 L Carbon Dioxide BUN 48 H Creatinine 1.3 H D Glucose POC Glucose 126 H 121 H Lactic Acid Calcium Ionized Calcium Phosphorus Magnesium Total Bilirubin AST 89 H ALT 98 H Alkaline Phosphatase 476 H Ammonia Total Creatine Kinase CK-MB (CK-2) CK-MB (CK-2) Rel Index Total Protein Albumin 2.8 L Urine WBC (Auto) Vancomycin Trough Salicylates Acetaminophen Plasma/Serum Alcohol Crossmatch 12/06/19 12/06/19 12/07/19 10:39 14:34 00:19 WBC 17.3 H RBC 2.60 L Hgb 7.1 L Hct 22.7 L MCH 27 L RDW 20.1 H Plt Count 832 H Lymph % (Auto) [place] % (Auto) [place] # Baso # Seg Neutrophils % Seg Neuts % (Manual) Lymphocytes % (Manual) Monocytes % (Manual) Seg Neutrophils # Seg Neutrophils # Man Lymphocytes # (Manual) Monocytes # (Manual) Eosinophils # (Manual) Basophils # (Manual) PT INR APTT ABG pH ABG pO2 ABG HCO3 ABG O2 Saturation ABG Base Excess ABG Hemoglobin Oxyhemoglobin Sodium Potassium Chloride Carbon Dioxide BUN Creatinine Glucose POC Glucose 128 H 136 H Lactic Acid Calcium Ionized Calcium Phosphorus Magnesium Total Bilirubin AST ALT Alkaline Phosphatase Ammonia Total Creatine Kinase CK-MB (CK-2) CK-MB (CK-2) Rel Index Total Protein Albumin Urine WBC (Auto) Vancomycin Trough Salicylates Acetaminophen Plasma/Serum Alcohol Crossmatch 12/07/19 12/07/19 12/07/19 03:44 03:44 05:53 WBC 16.2 H RBC 2.56 L Hgb 7.1 L Hct 22.3 L MCH RDW 19.4 H Plt Count 782 H Lymph % (Auto) [place] % (Auto) [place] # Baso # Seg Neutrophils % Seg Neuts % (Manual) Lymphocytes % (Manual) Monocytes % (Manual) Seg Neutrophils # Seg Neutrophils # Man Lymphocytes # (Manual) Monocytes # (Manual) Eosinophils # (Manual) Basophils # (Manual) PT INR APTT ABG pH ABG pO2 ABG HCO3 ABG O2 Saturation ABG Base Excess ABG Hemoglobin Oxyhemoglobin Sodium Potassium Chloride 95.6 L Carbon Dioxide BUN 56 H Creatinine 1.4 H Glucose 120 H POC Glucose 128 H Lactic Acid Calcium 10.3 H Ionized Calcium Phosphorus Magnesium Total Bilirubin AST ALT Alkaline Phosphatase Ammonia Total Creatine Kinase CK-MB (CK-2) CK-MB (CK-2) Rel Index Total Protein Albumin Urine WBC (Auto) Vancomycin Trough Salicylates Acetaminophen Plasma/Serum Alcohol Crossmatch 12/07/19 12/07/19 12/08/19 12:54 23:47 00:20 WBC RBC Hgb Hct MCH RDW Plt Count Lymph % (Auto) [place] % (Auto) [place] # Baso # Seg Neutrophils % Seg Neuts % (Manual) Lymphocytes % (Manual) Monocytes % (Manual) Seg Neutrophils # Seg Neutrophils # Man Lymphocytes # (Manual) Monocytes # (Manual) Eosinophils # (Manual) Basophils # (Manual) PT INR APTT ABG pH ABG pO2 ABG HCO3 ABG O2 Saturation ABG Base Excess ABG Hemoglobin Oxyhemoglobin Sodium Potassium Chloride Carbon Dioxide BUN Creatinine Glucose POC Glucose 128 H 130 H 124 H Lactic Acid Calcium Ionized Calcium Phosphorus Magnesium Total Bilirubin AST ALT Alkaline Phosphatase Ammonia Total Creatine Kinase CK-MB (CK-2) CK-MB (CK-2) Rel Index Total Protein Albumin Urine WBC (Auto) Vancomycin Trough Salicylates Acetaminophen Plasma/Serum Alcohol Crossmatch 12/08/19 12/08/19 12/08/19 06:38 12:04 18:26 WBC RBC Hgb Hct MCH RDW Plt Count Lymph % (Auto) [place] % (Auto) [place] # Baso # Seg Neutrophils % Seg Neuts % (Manual) Lymphocytes % (Manual) Monocytes % (Manual) Seg Neutrophils # Seg Neutrophils # Man Lymphocytes # (Manual) Monocytes # (Manual) Eosinophils # (Manual) Basophils # (Manual) PT INR APTT ABG pH ABG pO2 ABG HCO3 ABG O2 Saturation ABG Base Excess ABG Hemoglobin Oxyhemoglobin Sodium Potassium Chloride Carbon Dioxide BUN Creatinine Glucose POC Glucose 137 H 129 H 150 H Lactic Acid Calcium Ionized Calcium Phosphorus Magnesium Total Bilirubin AST ALT Alkaline Phosphatase Ammonia Total Creatine Kinase CK-MB (CK-2) CK-MB (CK-2) Rel Index Total Protein Albumin Urine WBC (Auto) Vancomycin Trough Salicylates Acetaminophen Plasma/Serum Alcohol Crossmatch 12/09/19 12/09/19 12/09/19 00:56 05:34 06:13 WBC RBC Hgb Hct MCH RDW Plt Count Lymph % (Auto) [place] % (Auto) [place] # Baso # Seg Neutrophils % Seg Neuts % (Manual) Lymphocytes % (Manual) Monocytes % (Manual) Seg Neutrophils # Seg Neutrophils # Man Lymphocytes # (Manual) Monocytes # (Manual) Eosinophils # (Manual) Basophils # (Manual) PT INR APTT ABG pH ABG pO2 ABG HCO3 ABG O2 Saturation ABG Base Excess ABG Hemoglobin Oxyhemoglobin Sodium 146 H Potassium Chloride Carbon Dioxide BUN 66 H Creatinine 1.9 H Glucose 116 H POC Glucose 130 H 130 H Lactic Acid Calcium Ionized Calcium Phosphorus Magnesium Total Bilirubin AST ALT Alkaline Phosphatase Ammonia Total Creatine Kinase CK-MB (CK-2) CK-MB (CK-2) Rel Index Total Protein Albumin Urine WBC (Auto) Vancomycin Trough Salicylates Acetaminophen Plasma/Serum Alcohol Crossmatch 12/09/19 12/09/19 12/10/19 11:52 17:50 00:14 WBC RBC Hgb Hct MCH RDW Plt Count Lymph % (Auto) [place] % (Auto) [place] # Baso # Seg Neutrophils % Seg Neuts % (Manual) Lymphocytes % (Manual) Monocytes % (Manual) Seg Neutrophils # Seg Neutrophils # Man Lymphocytes # (Manual) Monocytes # (Manual) Eosinophils # (Manual) Basophils # (Manual) PT INR APTT ABG pH ABG pO2 ABG HCO3 ABG O2 Saturation ABG Base Excess ABG Hemoglobin Oxyhemoglobin Sodium Potassium Chloride Carbon Dioxide BUN Creatinine Glucose POC Glucose 135 H 120 H 116 H Lactic Acid Calcium Ionized Calcium Phosphorus Magnesium Total Bilirubin AST ALT Alkaline Phosphatase Ammonia Total Creatine Kinase CK-MB (CK-2) CK-MB (CK-2) Rel Index Total Protein Albumin Urine WBC (Auto) Vancomycin Trough Salicylates Acetaminophen Plasma/Serum Alcohol Crossmatch 12/10/19 12/10/19 12/10/19 05:38 11:38 17:34 WBC RBC Hgb Hct MCH RDW Plt Count Lymph % (Auto) [place] % (Auto) [place] # Baso # Seg Neutrophils % Seg Neuts % (Manual) Lymphocytes % (Manual) Monocytes % (Manual) Seg Neutrophils # Seg Neutrophils # Man Lymphocytes # (Manual) Monocytes # (Manual) Eosinophils # (Manual) Basophils # (Manual) PT INR APTT ABG pH ABG pO2 ABG HCO3 ABG O2 Saturation ABG Base Excess ABG Hemoglobin Oxyhemoglobin Sodium Potassium Chloride Carbon Dioxide BUN Creatinine Glucose POC Glucose 115 H 112 H 130 H Lactic Acid Calcium Ionized Calcium Phosphorus Magnesium Total Bilirubin AST ALT Alkaline Phosphatase Ammonia Total Creatine Kinase CK-MB (CK-2) CK-MB (CK-2) Rel Index Total Protein Albumin Urine WBC (Auto) Vancomycin Trough Salicylates Acetaminophen Plasma/Serum Alcohol Crossmatch 12/11/19 12/11/19 12/11/19 00:20 05:31 12:22 WBC RBC Hgb Hct MCH RDW Plt Count Lymph % (Auto) [place] % (Auto) [place] # Baso # Seg Neutrophils % Seg Neuts % (Manual) Lymphocytes % (Manual) Monocytes % (Manual) Seg Neutrophils # Seg Neutrophils # Man Lymphocytes # (Manual) Monocytes # (Manual) Eosinophils # (Manual) Basophils # (Manual) PT INR APTT ABG pH ABG pO2 ABG HCO3 ABG O2 Saturation ABG Base Excess ABG Hemoglobin Oxyhemoglobin Sodium Potassium Chloride Carbon Dioxide BUN Creatinine Glucose POC Glucose 124 H 132 H 128 H Lactic Acid Calcium Ionized Calcium Phosphorus Magnesium Total Bilirubin AST ALT Alkaline Phosphatase Ammonia Total Creatine Kinase CK-MB (CK-2) CK-MB (CK-2) Rel Index Total Protein Albumin Urine WBC (Auto) Vancomycin Trough Salicylates Acetaminophen Plasma/Serum Alcohol Crossmatch 12/11/19 12/11/19 12/12/19 18:04 23:42 03:51 WBC RBC Hgb Hct MCH RDW Plt Count Lymph % (Auto) [place] % (Auto) [place] # Baso # Seg Neutrophils % Seg Neuts % (Manual) Lymphocytes % (Manual) Monocytes % (Manual) Seg Neutrophils # Seg Neutrophils # Man Lymphocytes # (Manual) Monocytes # (Manual) Eosinophils # (Manual) Basophils # (Manual) PT INR APTT ABG pH ABG pO2 ABG HCO3 ABG O2 Saturation ABG Base Excess ABG Hemoglobin Oxyhemoglobin Sodium 149 H Potassium Chloride Carbon Dioxide 20 L D BUN 77 H Creatinine 2.8 H Glucose POC Glucose 133 H 154 H Lactic Acid Calcium Ionized Calcium Phosphorus Magnesium Total Bilirubin AST ALT Alkaline Phosphatase Ammonia Total Creatine Kinase CK-MB (CK-2) CK-MB (CK-2) Rel Index Total Protein Albumin Urine WBC (Auto) Vancomycin Trough Salicylates Acetaminophen Plasma/Serum Alcohol Crossmatch 12/12/19 12/12/19 12/12/19 05:18 05:26 10:30 WBC 18.0 H RBC 2.51 L Hgb 6.8 L Hct 22.0 L MCH 27 L RDW 19.9 H Plt Count 582 H Lymph % (Auto) [place] % (Auto) [place] # Baso # Seg Neutrophils % Seg Neuts % (Manual) Lymphocytes % (Manual) Monocytes % (Manual) Seg Neutrophils # Seg Neutrophils # Man Lymphocytes # (Manual) Monocytes # (Manual) Eosinophils # (Manual) Basophils # (Manual) PT INR APTT ABG pH ABG pO2 ABG HCO3 ABG O2 Saturation ABG Base Excess ABG Hemoglobin Oxyhemoglobin Sodium Potassium Chloride Carbon Dioxide BUN Creatinine Glucose POC Glucose 135 H Lactic Acid Calcium Ionized Calcium Phosphorus Magnesium Total Bilirubin AST ALT Alkaline Phosphatase Ammonia Total Creatine Kinase CK-MB (CK-2) CK-MB (CK-2) Rel Index Total Protein Albumin Urine WBC (Auto) Vancomycin Trough Salicylates Acetaminophen Plasma/Serum Alcohol Crossmatch See Detail 12/12/19 12/12/19 12/12/19 11:44 18:10 23:21 WBC RBC Hgb Hct MCH RDW Plt Count Lymph % (Auto) [place] % (Auto) [place] # Baso # Seg Neutrophils % Seg Neuts % (Manual) Lymphocytes % (Manual) Monocytes % (Manual) Seg Neutrophils # Seg Neutrophils # Man Lymphocytes # (Manual) Monocytes # (Manual) Eosinophils # (Manual) Basophils # (Manual) PT INR APTT ABG pH ABG pO2 ABG HCO3 ABG O2 Saturation ABG Base Excess ABG Hemoglobin Oxyhemoglobin Sodium Potassium Chloride Carbon Dioxide BUN Creatinine Glucose POC Glucose 108 H 107 H 126 H Lactic Acid Calcium Ionized Calcium Phosphorus Magnesium Total Bilirubin AST ALT Alkaline Phosphatase Ammonia Total Creatine Kinase CK-MB (CK-2) CK-MB (CK-2) Rel Index Total Protein Albumin Urine WBC (Auto) Vancomycin Trough Salicylates Acetaminophen Plasma/Serum Alcohol Crossmatch 12/13/19 12/13/19 12/13/19 05:41 07:48 07:48 WBC 38.3 H RBC 2.37 L Hgb 6.3 L Hct 20.9 L MCH 27 L RDW 20.2 H Plt Count 546 H Lymph % (Auto) [place] % (Auto) [place] # Baso # Seg Neutrophils % Seg Neuts % (Manual) 93.0 H Lymphocytes % (Manual) 1.0 L Monocytes % (Manual) Seg Neutrophils # Seg Neutrophils # Man 35.6 H Lymphocytes # (Manual) 0.4 L Monocytes # (Manual) Eosinophils # (Manual) Basophils # (Manual) 0.4 H PT INR APTT ABG pH ABG pO2 ABG HCO3 ABG O2 Saturation ABG Base Excess ABG Hemoglobin Oxyhemoglobin Sodium 152 H Potassium 3.1 L D Chloride 111.9 H Carbon Dioxide 21 L BUN 53 H Creatinine 1.9 H Glucose 141 H POC Glucose 128 H Lactic Acid Calcium Ionized Calcium Phosphorus Magnesium Total Bilirubin AST ALT Alkaline Phosphatase 316 H Ammonia Total Creatine Kinase CK-MB (CK-2) CK-MB (CK-2) Rel Index Total Protein Albumin 2.4 L Urine WBC (Auto) Vancomycin Trough Salicylates Acetaminophen Plasma/Serum Alcohol Crossmatch 12/13/19 12/13/19 12/14/19 18:17 23:19 05:36 WBC RBC Hgb Hct MCH RDW Plt Count Lymph % (Auto) [place] % (Auto) [place] # Baso # Seg Neutrophils % Seg Neuts % (Manual) Lymphocytes % (Manual) Monocytes % (Manual) Seg Neutrophils # Seg Neutrophils # Man Lymphocytes # (Manual) Monocytes # (Manual) Eosinophils # (Manual) Basophils # (Manual) PT INR APTT ABG pH ABG pO2 ABG HCO3 ABG O2 Saturation ABG Base Excess ABG Hemoglobin Oxyhemoglobin Sodium Potassium Chloride Carbon Dioxide BUN Creatinine Glucose POC Glucose 141 H 158 H 182 H Lactic Acid Calcium Ionized Calcium Phosphorus Magnesium Total Bilirubin AST ALT Alkaline Phosphatase Ammonia Total Creatine Kinase CK-MB (CK-2) CK-MB (CK-2) Rel Index Total Protein Albumin Urine WBC (Auto) Vancomycin Trough Salicylates Acetaminophen Plasma/Serum Alcohol Crossmatch 12/14/19 12/14/19 12/14/19 08:48 08:48 10:31 WBC 33.3 H RBC 2.70 L Hgb 7.9 L 8.0 L Hct 25.3 L 24.0 L MCH RDW 19.2 H Plt Count 476 H Lymph % (Auto) [place] % (Auto) [place] # Baso # Seg Neutrophils % Seg Neuts % (Manual) Lymphocytes % (Manual) Monocytes % (Manual) Seg Neutrophils # Seg Neutrophils # Man Lymphocytes # (Manual) Monocytes # (Manual) Eosinophils # (Manual) Basophils # (Manual) PT INR APTT ABG pH ABG pO2 ABG HCO3 ABG O2 Saturation ABG Base Excess ABG Hemoglobin Oxyhemoglobin Sodium 153 H Potassium 2.5 L* Chloride 114.9 H Carbon Dioxide 20 L BUN 38 H Creatinine 1.4 H Glucose 177 H POC Glucose Lactic Acid Calcium Ionized Calcium Phosphorus Magnesium Total Bilirubin AST ALT Alkaline Phosphatase Ammonia Total Creatine Kinase CK-MB (CK-2) CK-MB (CK-2) Rel Index Total Protein Albumin Urine WBC (Auto) Vancomycin Trough Salicylates Acetaminophen Plasma/Serum Alcohol Crossmatch 12/14/19 12/14/19 12/14/19 12:57 16:15 17:50 WBC RBC Hgb Hct MCH RDW Plt Count Lymph % (Auto) [place] % (Auto) [place] # Baso # Seg Neutrophils % Seg Neuts % (Manual) Lymphocytes % (Manual) Monocytes % (Manual) Seg Neutrophils # Seg Neutrophils # Man Lymphocytes # (Manual) Monocytes # (Manual) Eosinophils # (Manual) Basophils # (Manual) PT INR APTT ABG pH ABG pO2 73.6 L ABG HCO3 ABG O2 Saturation ABG Base Excess ABG Hemoglobin 7.6 L Oxyhemoglobin 94.0 L Sodium Potassium Chloride Carbon Dioxide BUN Creatinine Glucose POC Glucose 174 H 150 H Lactic Acid Calcium Ionized Calcium Phosphorus Magnesium Total Bilirubin AST ALT Alkaline Phosphatase Ammonia Total Creatine Kinase CK-MB (CK-2) CK-MB (CK-2) Rel Index Total Protein Albumin Urine WBC (Auto) Vancomycin Trough Salicylates Acetaminophen Plasma/Serum Alcohol Crossmatch 12/15/19 12/15/19 12/15/19 00:28 05:27 07:23 WBC 30.0 H RBC 3.11 L Hgb 8.6 L Hct 27.7 L MCH RDW 20.0 H Plt Count 473 H Lymph % (Auto) [place] % (Auto) [place] # Baso # Seg Neutrophils % Seg Neuts % (Manual) Lymphocytes % (Manual) Monocytes % (Manual) Seg Neutrophils # Seg Neutrophils # Man Lymphocytes # (Manual) Monocytes # (Manual) Eosinophils # (Manual) Basophils # (Manual) PT INR APTT ABG pH ABG pO2 ABG HCO3 ABG O2 Saturation ABG Base Excess ABG Hemoglobin Oxyhemoglobin Sodium Potassium Chloride Carbon Dioxide BUN Creatinine Glucose POC Glucose 167 H 148 H Lactic Acid Calcium Ionized Calcium Phosphorus Magnesium Total Bilirubin AST ALT Alkaline Phosphatase Ammonia Total Creatine Kinase CK-MB (CK-2) CK-MB (CK-2) Rel Index Total Protein Albumin Urine WBC (Auto) Vancomycin Trough Salicylates Acetaminophen Plasma/Serum Alcohol Crossmatch 12/15/19 12/15/19 12/15/19 07:23 12:21 17:41 WBC RBC Hgb Hct MCH RDW Plt Count Lymph % (Auto) [place] % (Auto) [place] # Baso # Seg Neutrophils % Seg Neuts % (Manual) Lymphocytes % (Manual) Monocytes % (Manual) Seg Neutrophils # Seg Neutrophils # Man Lymphocytes # (Manual) Monocytes # (Manual) Eosinophils # (Manual) Basophils # (Manual) PT INR APTT ABG pH ABG pO2 ABG HCO3 ABG O2 Saturation ABG Base Excess ABG Hemoglobin Oxyhemoglobin Sodium 147 H Potassium 3.5 L D Chloride 111.2 H Carbon Dioxide 19 L BUN 29 H Creatinine Glucose 126 H POC Glucose 154 H 144 H Lactic Acid Calcium Ionized Calcium Phosphorus Magnesium Total Bilirubin AST ALT Alkaline Phosphatase Ammonia Total Creatine Kinase CK-MB (CK-2) CK-MB (CK-2) Rel Index Total Protein Albumin Urine WBC (Auto) Vancomycin Trough Salicylates Acetaminophen Plasma/Serum Alcohol Crossmatch 12/16/19 12/16/19 12/16/19 00:22 05:30 05:44 WBC 30.8 H RBC 2.58 L Hgb 7.1 L Hct 22.7 L MCH RDW 19.6 H Plt Count 451 H Lymph % (Auto) [place] % (Auto) [place] # Baso # Seg Neutrophils % Seg Neuts % (Manual) Lymphocytes % (Manual) Monocytes % (Manual) Seg Neutrophils # Seg Neutrophils # Man Lymphocytes # (Manual) Monocytes # (Manual) Eosinophils # (Manual) Basophils # (Manual) PT INR APTT ABG pH ABG pO2 ABG HCO3 ABG O2 Saturation ABG Base Excess ABG Hemoglobin Oxyhemoglobin Sodium Potassium Chloride Carbon Dioxide BUN Creatinine Glucose POC Glucose 139 H 126 H Lactic Acid Calcium Ionized Calcium Phosphorus Magnesium Total Bilirubin AST ALT Alkaline Phosphatase Ammonia Total Creatine Kinase CK-MB (CK-2) CK-MB (CK-2) Rel Index Total Protein Albumin Urine WBC (Auto) Vancomycin Trough Salicylates Acetaminophen Plasma/Serum Alcohol Crossmatch 12/16/19 12/16/19 12/16/19 05:44 11:48 17:37 WBC RBC Hgb Hct MCH RDW Plt Count Lymph % (Auto) [place] % (Auto) [place] # Baso # Seg Neutrophils % Seg Neuts % (Manual) Lymphocytes % (Manual) Monocytes % (Manual) Seg Neutrophils # Seg Neutrophils # Man Lymphocytes # (Manual) Monocytes # (Manual) Eosinophils # (Manual) Basophils # (Manual) PT INR APTT ABG pH ABG pO2 ABG HCO3 ABG O2 Saturation ABG Base Excess ABG Hemoglobin Oxyhemoglobin Sodium Potassium 3.4 L Chloride 109.2 H Carbon Dioxide 19 L BUN 27 H Creatinine Glucose 124 H POC Glucose 125 H 148 H Lactic Acid Calcium Ionized Calcium Phosphorus Magnesium Total Bilirubin AST ALT Alkaline Phosphatase Ammonia Total Creatine Kinase CK-MB (CK-2) CK-MB (CK-2) Rel Index Total Protein Albumin Urine WBC (Auto) Vancomycin Trough Salicylates Acetaminophen Plasma/Serum Alcohol Crossmatch 12/16/19 12/17/19 12/17/19 23:43 05:28 12:47 WBC RBC Hgb Hct MCH RDW Plt Count Lymph % (Auto) [place] % (Auto) [place] # Baso # Seg Neutrophils % Seg Neuts % (Manual) Lymphocytes % (Manual) Monocytes % (Manual) Seg Neutrophils # Seg Neutrophils # Man Lymphocytes # (Manual) Monocytes # (Manual) Eosinophils # (Manual) Basophils # (Manual) PT INR APTT ABG pH ABG pO2 ABG HCO3 ABG O2 Saturation ABG Base Excess ABG Hemoglobin Oxyhemoglobin Sodium Potassium Chloride Carbon Dioxide BUN Creatinine Glucose POC Glucose 142 H 140 H 125 H Lactic Acid Calcium Ionized Calcium Phosphorus Magnesium Total Bilirubin AST ALT Alkaline Phosphatase Ammonia Total Creatine Kinase CK-MB (CK-2) CK-MB (CK-2) Rel Index Total Protein Albumin Urine WBC (Auto) Vancomycin Trough Salicylates Acetaminophen Plasma/Serum Alcohol Crossmatch 12/17/19 12/17/19 12/17/19 17:05 18:00 Unknown WBC RBC Hgb Hct MCH RDW Plt Count Lymph % (Auto) [place] % (Auto) [place] # Baso # Seg Neutrophils % Seg Neuts % (Manual) Lymphocytes % (Manual) Monocytes % (Manual) Seg Neutrophils # Seg Neutrophils # Man Lymphocytes # (Manual) Monocytes # (Manual) Eosinophils # (Manual) Basophils # (Manual) PT INR APTT ABG pH ABG pO2 68.1 L ABG HCO3 ABG O2 Saturation 93.7 L ABG Base Excess ABG Hemoglobin 5.0 L Oxyhemoglobin 91.7 L Sodium Potassium Chloride Carbon Dioxide BUN Creatinine Glucose POC Glucose 140 H Lactic Acid Calcium Ionized Calcium Phosphorus Magnesium Total Bilirubin AST ALT Alkaline Phosphatase Ammonia Total Creatine Kinase CK-MB (CK-2) CK-MB (CK-2) Rel Index Total Protein Albumin Urine WBC (Auto) Vancomycin Trough Salicylates Acetaminophen Plasma/Serum Alcohol Crossmatch 12/18/19 12/18/19 12/18/19 00:16 04:53 04:53 WBC 28.6 H RBC 2.27 L Hgb 6.3 L Hct 19.5 L* MCH RDW 20.0 H Plt Count 497 H Lymph % (Auto) [place] % (Auto) [place] # Baso # Seg Neutrophils % Seg Neuts % (Manual) Lymphocytes % (Manual) Monocytes % (Manual) Seg Neutrophils # Seg Neutrophils # Man Lymphocytes # (Manual) Monocytes # (Manual) Eosinophils # (Manual) Basophils # (Manual) PT INR APTT ABG pH ABG pO2 ABG HCO3 ABG O2 Saturation ABG Base Excess ABG Hemoglobin Oxyhemoglobin Sodium Potassium Chloride 107.9 H Carbon Dioxide 20 L BUN 27 H Creatinine 0.6 L Glucose 116 H POC Glucose 123 H Lactic Acid Calcium Ionized Calcium Phosphorus Magnesium Total Bilirubin AST ALT Alkaline Phosphatase Ammonia Total Creatine Kinase CK-MB (CK-2) CK-MB (CK-2) Rel Index Total Protein Albumin Urine WBC (Auto) Vancomycin Trough Salicylates Acetaminophen Plasma/Serum Alcohol Crossmatch 12/18/19 12/18/19 12/18/19 06:38 11:22 12:08 WBC RBC Hgb Hct MCH RDW Plt Count Lymph % (Auto) [place] % (Auto) [place] # Baso # Seg Neutrophils % Seg Neuts % (Manual) Lymphocytes % (Manual) Monocytes % (Manual) Seg Neutrophils # Seg Neutrophils # Man Lymphocytes # (Manual) Monocytes # (Manual) Eosinophils # (Manual) Basophils # (Manual) PT INR APTT ABG pH ABG pO2 ABG HCO3 ABG O2 Saturation ABG Base Excess ABG Hemoglobin Oxyhemoglobin Sodium Potassium Chloride Carbon Dioxide BUN Creatinine Glucose POC Glucose 120 H 127 H Lactic Acid Calcium Ionized Calcium Phosphorus Magnesium Total Bilirubin AST ALT Alkaline Phosphatase Ammonia Total Creatine Kinase CK-MB (CK-2) CK-MB (CK-2) Rel Index Total Protein Albumin Urine WBC (Auto) Vancomycin Trough Salicylates Acetaminophen Plasma/Serum Alcohol Crossmatch See Detail 12/18/19 12/18/19 12/18/19 14:05 17:49 23:53 WBC RBC Hgb Hct MCH RDW Plt Count Lymph % (Auto) [place] % (Auto) [place] # Baso # Seg Neutrophils % Seg Neuts % (Manual) Lymphocytes % (Manual) Monocytes % (Manual) Seg Neutrophils # Seg Neutrophils # Man Lymphocytes # (Manual) Monocytes # (Manual) Eosinophils # (Manual) Basophils # (Manual) PT INR APTT ABG pH 7.267 L ABG pO2 69.8 L ABG HCO3 ABG O2 Saturation 88.4 L ABG Base Excess ABG Hemoglobin 7.1 L Oxyhemoglobin 86.4 L Sodium Potassium Chloride Carbon Dioxide BUN Creatinine Glucose POC Glucose 157 H 128 H Lactic Acid Calcium Ionized Calcium Phosphorus Magnesium Total Bilirubin AST ALT Alkaline Phosphatase Ammonia Total Creatine Kinase CK-MB (CK-2) CK-MB (CK-2) Rel Index Total Protein Albumin Urine WBC (Auto) Vancomycin Trough Salicylates Acetaminophen Plasma/Serum Alcohol Crossmatch 12/19/19 12/19/19 12/19/19 03:37 03:37 05:25 WBC 31.3 H RBC 2.60 L Hgb 7.6 L Hct 23.0 L MCH RDW 19.4 H Plt Count 530 H Lymph % (Auto) [place] % (Auto) [place] # Baso # Seg Neutrophils % Seg Neuts % (Manual) Lymphocytes % (Manual) Monocytes % (Manual) Seg Neutrophils # Seg Neutrophils # Man Lymphocytes # (Manual) Monocytes # (Manual) Eosinophils # (Manual) Basophils # (Manual) PT INR APTT ABG pH ABG pO2 ABG HCO3 ABG O2 Saturation ABG Base Excess ABG Hemoglobin Oxyhemoglobin Sodium Potassium Chloride Carbon Dioxide 18 L BUN 36 H Creatinine Glucose 111 H POC Glucose 123 H Lactic Acid Calcium Ionized Calcium Phosphorus Magnesium Total Bilirubin AST ALT Alkaline Phosphatase Ammonia Total Creatine Kinase CK-MB (CK-2) CK-MB (CK-2) Rel Index Total Protein Albumin Urine WBC (Auto) Vancomycin Trough Salicylates Acetaminophen Plasma/Serum Alcohol Crossmatch 12/19/19 12/19/19 12/20/19 12:59 18:33 00:00 WBC RBC Hgb Hct MCH RDW Plt Count Lymph % (Auto) [place] % (Auto) [place] # Baso # Seg Neutrophils % Seg Neuts % (Manual) Lymphocytes % (Manual) Monocytes % (Manual) Seg Neutrophils # Seg Neutrophils # Man Lymphocytes # (Manual) Monocytes # (Manual) Eosinophils # (Manual) Basophils # (Manual) PT INR APTT ABG pH ABG pO2 ABG HCO3 ABG O2 Saturation ABG Base Excess ABG Hemoglobin Oxyhemoglobin Sodium Potassium Chloride Carbon Dioxide BUN Creatinine Glucose POC Glucose 130 H 118 H 135 H Lactic Acid Calcium Ionized Calcium Phosphorus Magnesium Total Bilirubin AST ALT Alkaline Phosphatase Ammonia Total Creatine Kinase CK-MB (CK-2) CK-MB (CK-2) Rel Index Total Protein Albumin Urine WBC (Auto) Vancomycin Trough Salicylates Acetaminophen Plasma/Serum Alcohol Crossmatch 12/20/19 12/20/19 12/20/19 05:46 12:31 18:07 WBC RBC Hgb Hct MCH RDW Plt Count Lymph % (Auto) [place] % (Auto) [place] # Baso # Seg Neutrophils % Seg Neuts % (Manual) Lymphocytes % (Manual) Monocytes % (Manual) Seg Neutrophils # Seg Neutrophils # Man Lymphocytes # (Manual) Monocytes # (Manual) Eosinophils # (Manual) Basophils # (Manual) PT INR APTT ABG pH ABG pO2 ABG HCO3 ABG O2 Saturation ABG Base Excess ABG Hemoglobin Oxyhemoglobin Sodium Potassium Chloride Carbon Dioxide BUN Creatinine Glucose POC Glucose 131 H 128 H 134 H Lactic Acid Calcium Ionized Calcium Phosphorus Magnesium Total Bilirubin AST ALT Alkaline Phosphatase Ammonia Total Creatine Kinase CK-MB (CK-2) CK-MB (CK-2) Rel Index Total Protein Albumin Urine WBC (Auto) Vancomycin Trough Salicylates Acetaminophen Plasma/Serum Alcohol Crossmatch 12/21/19 12/21/19 12/21/19 03:28 03:28 07:21 WBC 29.4 H RBC 2.30 L Hgb 6.8 L Hct 20.2 L MCH RDW 20.2 H Plt Count 746 H Lymph % (Auto) [place] % (Auto) [place] # Baso # Seg Neutrophils % Seg Neuts % (Manual) 85.0 H Lymphocytes % (Manual) 8.0 L Monocytes % (Manual) Seg Neutrophils # Seg Neutrophils # Man 25.0 H Lymphocytes # (Manual) Monocytes # (Manual) 1.5 H Eosinophils # (Manual) 0.6 H Basophils # (Manual) PT INR APTT ABG pH ABG pO2 ABG HCO3 ABG O2 Saturation ABG Base Excess ABG Hemoglobin Oxyhemoglobin Sodium Potassium Chloride Carbon Dioxide 17 L BUN 57 H Creatinine 1.4 H D Glucose POC Glucose 124 H Lactic Acid Calcium Ionized Calcium Phosphorus Magnesium Total Bilirubin AST ALT Alkaline Phosphatase Ammonia Total Creatine Kinase CK-MB (CK-2) CK-MB (CK-2) Rel Index Total Protein Albumin Urine WBC (Auto) Vancomycin Trough Salicylates Acetaminophen Plasma/Serum Alcohol Crossmatch 12/21/19 12/21/19 12/21/19 08:56 12:06 14:53 WBC RBC Hgb 7.2 L Hct 22.9 L MCH RDW Plt Count Lymph % (Auto) [place] % (Auto) [place] # Baso # Seg Neutrophils % Seg Neuts % (Manual) Lymphocytes % (Manual) Monocytes % (Manual) Seg Neutrophils # Seg Neutrophils # Man Lymphocytes # (Manual) Monocytes # (Manual) Eosinophils # (Manual) Basophils # (Manual) PT INR APTT ABG pH ABG pO2 ABG HCO3 ABG O2 Saturation ABG Base Excess ABG Hemoglobin Oxyhemoglobin Sodium Potassium Chloride Carbon Dioxide BUN Creatinine Glucose POC Glucose 116 H Lactic Acid Calcium Ionized Calcium Phosphorus Magnesium Total Bilirubin AST ALT Alkaline Phosphatase Ammonia Total Creatine Kinase CK-MB (CK-2) CK-MB (CK-2) Rel Index Total Protein Albumin Urine WBC (Auto) Vancomycin Trough 33.8 H Salicylates Acetaminophen Plasma/Serum Alcohol Crossmatch 12/21/19 12/21/19 12/21/19 14:54 17:27 23:49 WBC RBC Hgb Hct MCH RDW Plt Count Lymph % (Auto) [place] % (Auto) [place] # Baso # Seg Neutrophils % Seg Neuts % (Manual) Lymphocytes % (Manual) Monocytes % (Manual) Seg Neutrophils # Seg Neutrophils # Man Lymphocytes # (Manual) Monocytes # (Manual) Eosinophils # (Manual) Basophils # (Manual) PT INR APTT ABG pH ABG pO2 ABG HCO3 ABG O2 Saturation ABG Base Excess ABG Hemoglobin Oxyhemoglobin Sodium Potassium Chloride Carbon Dioxide BUN Creatinine Glucose POC Glucose 145 H 127 H Lactic Acid Calcium Ionized Calcium Phosphorus Magnesium Total Bilirubin AST ALT Alkaline Phosphatase Ammonia Total Creatine Kinase CK-MB (CK-2) CK-MB (CK-2) Rel Index Total Protein Albumin Urine WBC (Auto) Vancomycin Trough Salicylates Acetaminophen Plasma/Serum Alcohol Crossmatch See Detail 12/22/19 12/22/19 12/22/19 04:43 05:56 08:40 WBC RBC Hgb Hct MCH RDW Plt Count Lymph % (Auto) [place] % (Auto) [place] # Baso # Seg Neutrophils % Seg Neuts % (Manual) Lymphocytes % (Manual) Monocytes % (Manual) Seg Neutrophils # Seg Neutrophils # Man Lymphocytes # (Manual) Monocytes # (Manual) Eosinophils # (Manual) Basophils # (Manual) PT INR APTT ABG pH ABG pO2 75.6 L ABG HCO3 ABG O2 Saturation ABG Base Excess -2.6 L ABG Hemoglobin 6.8 L Oxyhemoglobin 94.6 L Sodium Potassium Chloride Carbon Dioxide 17 L BUN 60 H Creatinine 1.4 H Glucose 126 H POC Glucose 153 H Lactic Acid Calcium Ionized Calcium Phosphorus Magnesium Total Bilirubin AST ALT Alkaline Phosphatase Ammonia Total Creatine Kinase CK-MB (CK-2) CK-MB (CK-2) Rel Index Total Protein Albumin Urine WBC (Auto) Vancomycin Trough Salicylates Acetaminophen Plasma/Serum Alcohol Crossmatch 12/22/19 12/22/19 12/23/19 12:07 17:49 04:30 WBC 22.4 H RBC 2.68 L Hgb 7.6 L Hct 22.9 L MCH RDW 19.9 H Plt Count 998 H Lymph % (Auto) [place] % (Auto) [place] # Baso # Seg Neutrophils % Seg Neuts % (Manual) 88.0 H Lymphocytes % (Manual) 2.0 L Monocytes % (Manual) 9.0 H Seg Neutrophils # Seg Neutrophils # Man 19.7 H Lymphocytes # (Manual) 0.4 L Monocytes # (Manual) 2.0 H Eosinophils # (Manual) Basophils # (Manual) PT INR APTT ABG pH ABG pO2 ABG HCO3 ABG O2 Saturation ABG Base Excess ABG Hemoglobin Oxyhemoglobin Sodium Potassium Chloride Carbon Dioxide BUN Creatinine Glucose POC Glucose 140 H 116 H Lactic Acid Calcium Ionized Calcium Phosphorus Magnesium Total Bilirubin AST ALT Alkaline Phosphatase Ammonia Total Creatine Kinase CK-MB (CK-2) CK-MB (CK-2) Rel Index Total Protein Albumin Urine WBC (Auto) Vancomycin Trough Salicylates Acetaminophen Plasma/Serum Alcohol Crossmatch 12/23/19 12/23/19 12/23/19 04:30 12:00 18:06 WBC RBC Hgb Hct MCH RDW Plt Count Lymph % (Auto) [place] % (Auto) [place] # Baso # Seg Neutrophils % Seg Neuts % (Manual) Lymphocytes % (Manual) Monocytes % (Manual) Seg Neutrophils # Seg Neutrophils # Man Lymphocytes # (Manual) Monocytes # (Manual) Eosinophils # (Manual) Basophils # (Manual) PT INR APTT ABG pH ABG pO2 ABG HCO3 ABG O2 Saturation ABG Base Excess ABG Hemoglobin Oxyhemoglobin Sodium Potassium 5.2 H Chloride Carbon Dioxide 21 L BUN 69 H Creatinine 1.5 H Glucose 117 H POC Glucose 128 H 138 H Lactic Acid Calcium Ionized Calcium Phosphorus Magnesium Total Bilirubin AST ALT Alkaline Phosphatase Ammonia Total Creatine Kinase CK-MB (CK-2) CK-MB (CK-2) Rel Index Total Protein Albumin Urine WBC (Auto) Vancomycin Trough Salicylates Acetaminophen Plasma/Serum Alcohol Crossmatch 12/23/19 12/24/19 12/24/19 23:46 04:31 05:08 WBC RBC Hgb Hct MCH RDW Plt Count Lymph % (Auto) [place] % (Auto) [place] # Baso # Seg Neutrophils % Seg Neuts % (Manual) Lymphocytes % (Manual) Monocytes % (Manual) Seg Neutrophils # Seg Neutrophils # Man Lymphocytes # (Manual) Monocytes # (Manual) Eosinophils # (Manual) Basophils # (Manual) PT INR APTT ABG pH ABG pO2 ABG HCO3 ABG O2 Saturation ABG Base Excess ABG Hemoglobin Oxyhemoglobin Sodium Potassium 5.3 H Chloride 107.6 H Carbon Dioxide 20 L BUN 72 H Creatinine 1.6 H Glucose 120 H POC Glucose 120 H 140 H Lactic Acid Calcium Ionized Calcium Phosphorus Magnesium Total Bilirubin AST ALT Alkaline Phosphatase Ammonia Total Creatine Kinase CK-MB (CK-2) CK-MB (CK-2) Rel Index Total Protein Albumin Urine WBC (Auto) Vancomycin Trough Salicylates Acetaminophen Plasma/Serum Alcohol Crossmatch 12/24/19 12/24/19 12/25/19 11:58 17:49 03:47 WBC 36.2 H RBC 2.92 L Hgb 8.4 L Hct 26.1 L MCH RDW 20.2 H Plt Count 942 H Lymph % (Auto) [place] % (Auto) [place] # Baso # Seg Neutrophils % Seg Neuts % (Manual) 97.5 H Lymphocytes % (Manual) 1.0 L Monocytes % (Manual) Seg Neutrophils # Seg Neutrophils # Man 35.3 H Lymphocytes # (Manual) 0.4 L Monocytes # (Manual) Eosinophils # (Manual) Basophils # (Manual) PT INR APTT ABG pH ABG pO2 ABG HCO3 ABG O2 Saturation ABG Base Excess ABG Hemoglobin Oxyhemoglobin Sodium Potassium Chloride Carbon Dioxide BUN Creatinine Glucose POC Glucose 146 H 131 H Lactic Acid Calcium Ionized Calcium Phosphorus Magnesium Total Bilirubin AST ALT Alkaline Phosphatase Ammonia Total Creatine Kinase CK-MB (CK-2) CK-MB (CK-2) Rel Index Total Protein Albumin Urine WBC (Auto) Vancomycin Trough Salicylates Acetaminophen Plasma/Serum Alcohol Crossmatch 12/25/19 12/25/19 12/25/19 03:47 05:30 12:23 WBC RBC Hgb Hct MCH RDW Plt Count Lymph % (Auto) [place] % (Auto) [place] # Baso # Seg Neutrophils % Seg Neuts % (Manual) Lymphocytes % (Manual) Monocytes % (Manual) Seg Neutrophils # Seg Neutrophils # Man Lymphocytes # (Manual) Monocytes # (Manual) Eosinophils # (Manual) Basophils # (Manual) PT INR APTT ABG pH ABG pO2 ABG HCO3 ABG O2 Saturation ABG Base Excess ABG Hemoglobin Oxyhemoglobin Sodium Potassium Chloride Carbon Dioxide 15 L BUN 70 H Creatinine 1.7 H Glucose 153 H POC Glucose 169 H 135 H Lactic Acid Calcium Ionized Calcium Phosphorus Magnesium Total Bilirubin AST ALT Alkaline Phosphatase Ammonia Total Creatine Kinase CK-MB (CK-2) CK-MB (CK-2) Rel Index Total Protein Albumin Urine WBC (Auto) Vancomycin Trough Salicylates Acetaminophen Plasma/Serum Alcohol Crossmatch 12/25/19 12/25/19 12/26/19 17:37 23:29 09:47 WBC 22.1 H RBC 2.83 L Hgb 7.9 L Hct 25.5 L MCH RDW 20.0 H Plt Count 894 H Lymph % (Auto) [place] % (Auto) [place] # Baso # Seg Neutrophils % Seg Neuts % (Manual) Lymphocytes % (Manual) Monocytes % (Manual) Seg Neutrophils # Seg Neutrophils # Man Lymphocytes # (Manual) Monocytes # (Manual) Eosinophils # (Manual) Basophils # (Manual) PT INR APTT ABG pH ABG pO2 ABG HCO3 ABG O2 Saturation ABG Base Excess ABG Hemoglobin Oxyhemoglobin Sodium Potassium Chloride Carbon Dioxide BUN Creatinine Glucose POC Glucose 120 H 140 H Lactic Acid Calcium Ionized Calcium Phosphorus Magnesium Total Bilirubin AST ALT Alkaline Phosphatase Ammonia Total Creatine Kinase CK-MB (CK-2) CK-MB (CK-2) Rel Index Total Protein Albumin Urine WBC (Auto) Vancomycin Trough Salicylates Acetaminophen Plasma/Serum Alcohol Crossmatch 12/26/19 12/26/19 12/26/19 09:47 11:46 17:52 WBC RBC Hgb Hct MCH RDW Plt Count Lymph % (Auto) [place] % (Auto) [place] # Baso # Seg Neutrophils % Seg Neuts % (Manual) Lymphocytes % (Manual) Monocytes % (Manual) Seg Neutrophils # Seg Neutrophils # Man Lymphocytes # (Manual) Monocytes # (Manual) Eosinophils # (Manual) Basophils # (Manual) PT INR APTT ABG pH ABG pO2 ABG HCO3 ABG O2 Saturation ABG Base Excess ABG Hemoglobin Oxyhemoglobin Sodium Potassium Chloride Carbon Dioxide 18 L BUN 65 H Creatinine 1.4 H Glucose 132 H POC Glucose 110 H 145 H Lactic Acid Calcium Ionized Calcium Phosphorus Magnesium Total Bilirubin AST ALT Alkaline Phosphatase Ammonia Total Creatine Kinase CK-MB (CK-2) CK-MB (CK-2) Rel Index Total Protein Albumin Urine WBC (Auto) Vancomycin Trough Salicylates Acetaminophen Plasma/Serum Alcohol Crossmatch 12/27/19 12/27/19 12/27/19 00:01 03:42 03:42 WBC 18.0 H RBC 2.86 L Hgb 8.0 L Hct 25.2 L MCH RDW 19.2 H Plt Count 873 H Lymph % (Auto) 8.4 L [place] % (Auto) 7.5 H [place] # 1.4 H Baso # 0.2 H Seg Neutrophils % 82.2 H Seg Neuts % (Manual) Lymphocytes % (Manual) Monocytes % (Manual) Seg Neutrophils # 14.8 H Seg Neutrophils # Man Lymphocytes # (Manual) Monocytes # (Manual) Eosinophils # (Manual) Basophils # (Manual) PT INR APTT ABG pH ABG pO2 ABG HCO3 ABG O2 Saturation ABG Base Excess ABG Hemoglobin Oxyhemoglobin Sodium Potassium Chloride Carbon Dioxide BUN 73 H Creatinine 1.4 H Glucose 119 H POC Glucose 124 H Lactic Acid Calcium Ionized Calcium Phosphorus Magnesium Total Bilirubin AST ALT Alkaline Phosphatase Ammonia Total Creatine Kinase CK-MB (CK-2) CK-MB (CK-2) Rel Index Total Protein Albumin Urine WBC (Auto) Vancomycin Trough Salicylates Acetaminophen Plasma/Serum Alcohol Crossmatch 12/27/19 12/27/19 12/27/19 05:45 11:45 17:29 WBC RBC Hgb Hct MCH RDW Plt Count Lymph % (Auto) [place] % (Auto) [place] # Baso # Seg Neutrophils % Seg Neuts % (Manual) Lymphocytes % (Manual) Monocytes % (Manual) Seg Neutrophils # Seg Neutrophils # Man Lymphocytes # (Manual) Monocytes # (Manual) Eosinophils # (Manual) Basophils # (Manual) PT INR APTT ABG pH ABG pO2 ABG HCO3 ABG O2 Saturation ABG Base Excess ABG Hemoglobin Oxyhemoglobin Sodium Potassium Chloride Carbon Dioxide BUN Creatinine Glucose POC Glucose 131 H 123 H 134 H Lactic Acid Calcium Ionized Calcium Phosphorus Magnesium Total Bilirubin AST ALT Alkaline Phosphatase Ammonia Total Creatine Kinase CK-MB (CK-2) CK-MB (CK-2) Rel Index Total Protein Albumin Urine WBC (Auto) Vancomycin Trough Salicylates Acetaminophen Plasma/Serum Alcohol Crossmatch 12/28/19 12/28/19 12/28/19 00:12 05:14 11:53 WBC RBC Hgb Hct MCH RDW Plt Count Lymph % (Auto) [place] % (Auto) [place] # Baso # Seg Neutrophils % Seg Neuts % (Manual) Lymphocytes % (Manual) Monocytes % (Manual) Seg Neutrophils # Seg Neutrophils # Man Lymphocytes # (Manual) Monocytes # (Manual) Eosinophils # (Manual) Basophils # (Manual) PT INR APTT ABG pH ABG pO2 ABG HCO3 ABG O2 Saturation ABG Base Excess ABG Hemoglobin Oxyhemoglobin Sodium Potassium Chloride Carbon Dioxide BUN Creatinine Glucose POC Glucose 138 H 130 H 146 H Lactic Acid Calcium Ionized Calcium Phosphorus Magnesium Total Bilirubin AST ALT Alkaline Phosphatase Ammonia Total Creatine Kinase CK-MB (CK-2) CK-MB (CK-2) Rel Index Total Protein Albumin Urine WBC (Auto) Vancomycin Trough Salicylates Acetaminophen Plasma/Serum Alcohol Crossmatch 12/28/19 12/29/19 12/29/19 17:39 00:01 18:11 WBC RBC Hgb Hct MCH RDW Plt Count Lymph % (Auto) [place] % (Auto) [place] # Baso # Seg Neutrophils % Seg Neuts % (Manual) Lymphocytes % (Manual) Monocytes % (Manual) Seg Neutrophils # Seg Neutrophils # Man Lymphocytes # (Manual) Monocytes # (Manual) Eosinophils # (Manual) Basophils # (Manual) PT INR APTT ABG pH ABG pO2 ABG HCO3 ABG O2 Saturation ABG Base Excess ABG Hemoglobin Oxyhemoglobin Sodium Potassium Chloride Carbon Dioxide BUN Creatinine Glucose POC Glucose 117 H 139 H 130 H Lactic Acid Calcium Ionized Calcium Phosphorus Magnesium Total Bilirubin AST ALT Alkaline Phosphatase Ammonia Total Creatine Kinase CK-MB (CK-2) CK-MB (CK-2) Rel Index Total Protein Albumin Urine WBC (Auto) Vancomycin Trough Salicylates Acetaminophen Plasma/Serum Alcohol Crossmatch 12/29/19 12/30/19 12/30/19 23:09 00:02 01:06 WBC 16.7 H RBC 2.91 L Hgb 8.2 L Hct 25.4 L MCH RDW 18.7 H Plt Count 708 H Lymph % (Auto) 9.4 L [place] % (Auto) [place] # 0.9 H Baso # Seg Neutrophils % 83.5 H Seg Neuts % (Manual) Lymphocytes % (Manual) Monocytes % (Manual) Seg Neutrophils # 14.0 H Seg Neutrophils # Man Lymphocytes # (Manual) Monocytes # (Manual) Eosinophils # (Manual) Basophils # (Manual) PT INR APTT ABG pH ABG pO2 ABG HCO3 ABG O2 Saturation ABG Base Excess ABG Hemoglobin Oxyhemoglobin Sodium Potassium Chloride Carbon Dioxide BUN Creatinine Glucose POC Glucose 120 H 114 H Lactic Acid Calcium Ionized Calcium Phosphorus Magnesium Total Bilirubin AST ALT Alkaline Phosphatase Ammonia Total Creatine Kinase CK-MB (CK-2) CK-MB (CK-2) Rel Index Total Protein Albumin Urine WBC (Auto) Vancomycin Trough Salicylates Acetaminophen Plasma/Serum Alcohol Crossmatch 12/30/19 12/30/19 12/30/19 01:06 04:23 05:18 WBC RBC Hgb Hct MCH RDW Plt Count Lymph % (Auto) [place] % (Auto) [place] # Baso # Seg Neutrophils % Seg Neuts % (Manual) Lymphocytes % (Manual) Monocytes % (Manual) Seg Neutrophils # Seg Neutrophils # Man Lymphocytes # (Manual) Monocytes # (Manual) Eosinophils # (Manual) Basophils # (Manual) PT INR APTT ABG pH ABG pO2 ABG HCO3 ABG O2 Saturation ABG Base Excess ABG Hemoglobin 8.3 L Oxyhemoglobin Sodium Potassium Chloride Carbon Dioxide BUN 70 H Creatinine Glucose 122 H POC Glucose 130 H Lactic Acid Calcium Ionized Calcium Phosphorus Magnesium Total Bilirubin AST ALT Alkaline Phosphatase Ammonia Total Creatine Kinase CK-MB (CK-2) CK-MB (CK-2) Rel Index Total Protein Albumin Urine WBC (Auto) Vancomycin Trough Salicylates Acetaminophen Plasma/Serum Alcohol Crossmatch 12/30/19 12/30/19 12/30/19 05:40 12:17 17:43 WBC RBC Hgb Hct MCH RDW Plt Count Lymph % (Auto) [place] % (Auto) [place] # Baso # Seg Neutrophils % Seg Neuts % (Manual) Lymphocytes % (Manual) Monocytes % (Manual) Seg Neutrophils # Seg Neutrophils # Man Lymphocytes # (Manual) Monocytes # (Manual) Eosinophils # (Manual) Basophils # (Manual) PT INR APTT ABG pH ABG pO2 ABG HCO3 ABG O2 Saturation ABG Base Excess ABG Hemoglobin Oxyhemoglobin Sodium Potassium Chloride Carbon Dioxide BUN Creatinine Glucose POC Glucose 135 H 132 H 118 H Lactic Acid Calcium Ionized Calcium Phosphorus Magnesium Total Bilirubin AST ALT Alkaline Phosphatase Ammonia Total Creatine Kinase CK-MB (CK-2) CK-MB (CK-2) Rel Index Total Protein Albumin Urine WBC (Auto) Vancomycin Trough Salicylates Acetaminophen Plasma/Serum Alcohol Crossmatch 12/30/19 12/31/19 12/31/19 23:29 05:19 17:50 WBC RBC Hgb Hct MCH RDW Plt Count Lymph % (Auto) [place] % (Auto) [place] # Baso # Seg Neutrophils % Seg Neuts % (Manual) Lymphocytes % (Manual) Monocytes % (Manual) Seg Neutrophils # Seg Neutrophils # Man Lymphocytes # (Manual) Monocytes # (Manual) Eosinophils # (Manual) Basophils # (Manual) PT INR APTT ABG pH ABG pO2 ABG HCO3 ABG O2 Saturation ABG Base Excess ABG Hemoglobin Oxyhemoglobin Sodium Potassium Chloride Carbon Dioxide BUN Creatinine Glucose POC Glucose 114 H 109 H 116 H Lactic Acid Calcium Ionized Calcium Phosphorus Magnesium Total Bilirubin AST ALT Alkaline Phosphatase Ammonia Total Creatine Kinase CK-MB (CK-2) CK-MB (CK-2) Rel Index Total Protein Albumin Urine WBC (Auto) Vancomycin Trough Salicylates Acetaminophen Plasma/Serum Alcohol Crossmatch 01/01/20 01/01/20 01/01/20 00:10 05:19 12:02 WBC RBC Hgb Hct MCH RDW Plt Count Lymph % (Auto) [place] % (Auto) [place] # Baso # Seg Neutrophils % Seg Neuts % (Manual) Lymphocytes % (Manual) Monocytes % (Manual) Seg Neutrophils # Seg Neutrophils # Man Lymphocytes # (Manual) Monocytes # (Manual) Eosinophils # (Manual) Basophils # (Manual) PT INR APTT ABG pH ABG pO2 ABG HCO3 ABG O2 Saturation ABG Base Excess ABG Hemoglobin Oxyhemoglobin Sodium Potassium Chloride Carbon Dioxide BUN Creatinine Glucose POC Glucose 131 H 122 H 136 H Lactic Acid Calcium Ionized Calcium Phosphorus Magnesium Total Bilirubin AST ALT Alkaline Phosphatase Ammonia Total Creatine Kinase CK-MB (CK-2) CK-MB (CK-2) Rel Index Total Protein Albumin Urine WBC (Auto) Vancomycin Trough Salicylates Acetaminophen Plasma/Serum Alcohol Crossmatch 01/02/20 01/02/20 01/02/20 00:24 05:36 11:41 WBC RBC Hgb Hct MCH RDW Plt Count Lymph % (Auto) [place] % (Auto) [place] # Baso # Seg Neutrophils % Seg Neuts % (Manual) Lymphocytes % (Manual) Monocytes % (Manual) Seg Neutrophils # Seg Neutrophils # Man Lymphocytes # (Manual) Monocytes # (Manual) Eosinophils # (Manual) Basophils # (Manual) PT INR APTT ABG pH ABG pO2 ABG HCO3 ABG O2 Saturation ABG Base Excess ABG Hemoglobin Oxyhemoglobin Sodium Potassium Chloride Carbon Dioxide BUN Creatinine Glucose POC Glucose 119 H 109 H 125 H Lactic Acid Calcium Ionized Calcium Phosphorus Magnesium Total Bilirubin AST ALT Alkaline Phosphatase Ammonia Total Creatine Kinase CK-MB (CK-2) CK-MB (CK-2) Rel Index Total Protein Albumin Urine WBC (Auto) Vancomycin Trough Salicylates Acetaminophen Plasma/Serum Alcohol Crossmatch 01/02/20 01/03/20 17:49 05:29 WBC RBC Hgb Hct MCH RDW Plt Count Lymph % (Auto) [place] % (Auto) [place] # Baso # Seg Neutrophils % Seg Neuts % (Manual) Lymphocytes % (Manual) Monocytes % (Manual) Seg Neutrophils # Seg Neutrophils # Man Lymphocytes # (Manual) Monocytes # (Manual) Eosinophils # (Manual) Basophils # (Manual) PT INR APTT ABG pH ABG pO2 ABG HCO3 ABG O2 Saturation ABG Base Excess ABG Hemoglobin Oxyhemoglobin Sodium Potassium Chloride Carbon Dioxide BUN Creatinine Glucose POC Glucose 130 H 132 H Lactic Acid Calcium Ionized Calcium Phosphorus Magnesium Total Bilirubin AST ALT Alkaline Phosphatase Ammonia Total Creatine Kinase CK-MB (CK-2) CK-MB (CK-2) Rel Index Total Protein Albumin Urine WBC (Auto) Vancomycin Trough Salicylates Acetaminophen Plasma/Serum Alcohol Crossmatch Allied health notes reviewed: RT
--- NOTE | 2020-01-03 13:42 | Progress Note ---
Assessment and Plan / Anoxic brain injury: suspected CT head: No acute abnormality. neurology consult placed, EEG ordered showed Generalized slowing. No seizures or epileptiform activity. Per neurology : Patient found to have intact corneal/VOR/cough reflexes, and is withdrawing lower extremities, therefore patient is not found to be brain . However, given that patient had an out of hospital cardiac arrest, [facility], the likelihood of meaningful neurological recovery is somewhat low. -Patient now opening her eyes but does not follow any command or move any extremities /Acute Respiratory failure -s/p intubation, s/p trach and PEG on 12/12 with mechanical ventilation - CTA was done and negative for PE, - Echo quality is poor, showed diastolic dysfunction - continue ICU monitoring - wean OFF vent/O2 as tolerated /Anemia, microcytic -Continue to hold heparin, transfused 2 units of packed RBC -ordered stool for occult blood - pending /Acute metabolic encephalopathy/toxic encephalopathy due to the above - cont supportive care /Hyperammonemia - likely from liver disease related to EtOH abuse - Patient had elevated ammonia level and treated with lactulose /Metabolic Acidosis -Alcohol ketoacidosis vs hypoprofusion -Continue to monitor /ELevated LFTs, stable now - due to ischemic hepatitis. /Leucocytosis with sepsis - Source MRSA bacteremia and MSSA pneumonia. UA showed pyuria. RUQ US showed no ascites. - Repeat TTE negative for vegetation. Completed 7 days of Ceftriaxone on 11/29/2019. -Treated with Abx vancomycin 1 gm IV q 12 hour total 2 week till 12/30/2019 /MSSA pneumonia: Status post vancomycin till 12/30/2019 /ALcohol USe Disorder - given ongoing Alcohol use almost daily, s/p IV Thiamine - monitor /Severe hypokalemia -Repleted /Seizure disorder: treat with Keppra /H. Influenzae, tracheobronchitis, treated with abx DNR, Very poor prognosis The high probability of a clinically significant, sudden or life threatening deterioration of the [neurology,respiratory] system(s) required my full and direct attention, intervention and personal management. The aggregate critical care time was [32] minutes. This time is in addition to time spent performing reported procedures but includes the following: [x] Data Review and interpretation [x] Patient assessment and monitoring of vital signs [x] Documentation [x] Medication orders and management Disposition: prognosis very poor. Family okay when DNR, placement pending 12/31/19: still intubated via trach, no restraints needed, FiO2 30%, PEEP 6, Difficulty getting to Hospice, mother wants to kept updated. Patient has 4 kids, 2 sons in half-way, 1 son is transgender and not involved per mother; Daughter is Deborah who is [employer]K 01/01/20: Still intubated, but patient opening her eyes but does not follow any command. Unable to set up inpatient hospice 01/01 pending placement, patient is self funded 01/02 pending placement, patient is self funded Brief History: 54-year-old female with a past medical history of Hypertension, Depression, Tobacco use Disorder, Alcohol use Disorder as confirmed by Daughter and pt's mother presents to the hospital status post cardiac arrest at home. EMS found pt in [place]. They were unable to intubate patient with a ET tube because she was clenching down therefore Joe airway placed. Per the ED physician who evaluated pt, Patient presented with a pulse, intermittent respirations, and bagging s upport via Joe airway with O2 sat of 100%. Accu-Chek of 71 obtained by EMS. She was intubated in the ER and called for admission. Following admission patient was diagnosed with anoxic brain injury, sepsis with MRSA bacteremia and MSSA pneumonia, alcoholic liver disease. Family member wished for full code, patient currently getting treated with IV antibiotics for sepsis, status post trach and PEG on 12/13/19. Subjective Date of service: 01/03/20 Principal diagnosis: Ac cardiopulmonary arrest; Ac hypoxemic resp failure; Acute encephalopathy Interval history: Patient seen and examined remained on mechanical ventilation with trach, only open her eyes patient now DNR Discussed with RN at bedside, discussed with human services case manager for disposition planning Tolerating tube feeding with PEG tube, needs placement/hospice - uninsured PUI?: No COVID19: Negative Objective - Exam Narrative Exam: General appearance: Present: other (on vent, elderly female, open eyes) - EENT Eyes: no scleral icterus, no conjunctival injection, pupil not reactive ENT: clear oral mucosa, dentition normal, no oropharyngeal erythema Ears: bilateral: normal - Neck Neck: trach on place - Respiratory Respiratory effort: other (on vent) Respiratory: bilateral: rales - Cardiovascular Rhythm: regular Heart Sounds: Present: S1 & S2. Absent: gallop, rub Extremities: pulses intact, No edema, normal color - Gastrointestinal General gastrointestinal: Present: soft, non-tender, non-distended, normal bowel sounds - Integumentary Integumentary: clear, warm, dry - Musculoskeletal Musculoskeletal: does not respond to commend - Neurologic Neurologic: other (intubated with trach and 2+ reflexes throughout). Does not follow commands or move extremities - Psychiatric Psychiatric: no appropriate mood/affect, no intact judgment & insight, no memory intact - Constitutional Vitals: Vital Signs - 12hr 01/03/20 01/03/20 01/03/20 02:00 03:00 03:58 Temperature Pulse Rate 106 H 100 H 96 H Pulse Rate [ From Monitor] Respiratory 17 18 Rate Blood Pressure 124/83 135/85 132/85 O2 Sat by Pulse 100 100 100 Oximetry O2 Sat by Pulse 100 Oximetry [ Assessment] 01/03/20 01/03/20 01/03/20 04:00 05:00 06:00 Temperature 99.0 F Pulse Rate 99 H 100 H 100 H Pulse Rate [ From Monitor] Respiratory 17 16 21 Rate Blood Pressure 132/85 124/79 130/85 O2 Sat by Pulse 100 100 100 Oximetry O2 Sat by Pulse Oximetry [ Assessment] 01/03/20 01/03/20 01/03/20 07:00 08:00 08:17 Temperature 98.7 F Pulse Rate 108 H 108 H 106 H Pulse Rate [ 110 H From Monitor] Respiratory 21 19 22 Rate Blood Pressure 144/88 130/86 130/86 O2 Sat by Pulse 100 100 100 Oximetry O2 Sat by Pulse 100 Oximetry [ Assessment] 01/03/20 01/03/20 01/03/20 09:00 10:00 11:00 Temperature Pulse Rate 109 H 117 H 110 H Pulse Rate [ From Monitor] Respiratory 18 21 22 Rate Blood Pressure 132/89 142/85 153/93 O2 Sat by Pulse 100 100 100 Oximetry O2 Sat by Pulse Oximetry [ Assessment] 01/03/20 01/03/20 12:00 13:01 Temperature 98.9 F Pulse Rate 118 H 115 H Pulse Rate [ 116 H From Monitor] Respiratory 26 H 25 H Rate Blood Pressure 143/91 151/89 O2 Sat by Pulse 99 100 Oximetry O2 Sat by Pulse Oximetry [ Assessment] - Labs CBC & Chem 7: 12/30/19 01:06 12/30/19 01:06 Labs: Abnormal lab results 01/02/20 01/03/20 Range/Units 17:49 05:29 POC Glucose 130 H 132 H (70-105)
[2020-01-03] MEDS: QUEtiapine 100 MG TAB PO SCH (21:10)
[2020-01-04] MEDS: levETIRAcetam 500 MG/5 ML ORAL LIQD PO SCH ×2 (09:27→21:00)
[2020-01-04] MEDS: QUEtiapine 200 MG TAB PO SCH (09:28)
[2020-01-04] MEDS: SERTRALINE 50 MG TAB PO SCH (09:28)
[2020-01-04] MEDS: GLYCOPYRROLATE 1 MG TAB PO SCH ×3 (09:28→19:34)
[2020-01-04] MEDS: LANSOPRAZOLE 30 MG SOLUTAB FEEDTUBE SCH (09:28)
[2020-01-04] MEDS: TAMSULOSIN 0.4 MG CAP PO SCH (09:29)
[2020-01-04] MEDS: MIRTAZAPINE 30 MG TAB PO SCH (09:29)
[2020-01-04] MEDS: hydrOXYzine PAMOATE 25 MG CAP PO SCH ×2 (09:29→20:59)
--- NOTE | 2020-01-04 10:12 | Progress Note ---
Assessment and Plan Acute cardiopulmonary arrest with ROSC Acute hypoxemic respiratory failure on MVS MRSA Bacteremia MRSA pneumonia Acute hqofjccsk-eoref-eitbsh encephalopathy Metabolic acidosis/alcoholic acidosis/Lactic acidosis( resolved) Ischemic hepatitis Leucocytosis - persistent Erythrocytosis Tobacco use disorder Alcohol use Disorder -CBC, BMP in am -Trach care, airway clearance, secretion management( continue scopolamine patch and Robinul) -CXR, ABG prn -Weaning trials as tolerated -Continue contact isolation for MRSA -Continue all care as documented below. -Continue with MVS, Lung protective strategies, monitor airway pressures -VAP bundle addressed -Continue aspiration precautions, HOB>40 -Continue daily assessment for readiness for SBT -Continue Stress ulcer prophylaxis -Continue enteric nutritional support at goal rate. -Continue to monitor glycemic control, with target blood glucose 140-180 mg/dL while critically ill. -Avoid hypoglycemia - Continue to wean supplemental oxygen for target O2 sat's > 90% -Continue thiamine, multivitamin and electrolyte replacement -Continue to avoid nephrotoxins, adjust all medications for GFR and CrCL - Continue bronchodilators with pulmonary hygiene - Continue prn analgesia per CPOT score - Continue to maintain of sleep-wake cycle, avoid delirium - PT/OT/ROM exercises - Continue mobility protocol and skin assessment per protocol for pressure ulcer prevention - Continue to monitor for clinical seizures - continue other care per attending / other consultants CONDITION: FAIR PROGNOSIS: GUARDED CODE STATUS: DNAR Subjective Date of service: 01/04/20 Principal diagnosis: Ac cardiopulmonary arrest; Ac hypoxemic resp failure; Acute encephalopathy Interval history: Patient is seen today for: Acute cardiopulmonary arrest with ROSC; Acute hypoxemic respiratory failure; Acute metabolic-toxic encephalopathy; Ischemic hepatitis; Leucocytosis with lactic acidosis; Tobacco use disorder; Alcohol use Disorder; s/p tracheostomy; s/p PEG Seen and examined at bedside; 24hour events reviewed; nursing and respiratory care staff consulted; no adverse overnight events reported to me; resting peacefully in bed; tolerating weaning trials tenuously- tolerated ATP yesterday for about 6 hours , placed on ATP this morning and is not tolerating , tachypnic with increased work of breathing; mental status changes persist; no fevers PUI?: No COVID19: Negative Objective Vital Signs - 12hr 01/03/20 01/03/20 01/03/20 22:00 23:00 23:49 Temperature 98 F Pulse Rate 108 H 113 H Pulse Rate [ From Monitor] Pulse Rate [ Right Dorsalis Pedis] Respiratory 29 H 25 H Rate Blood Pressure 130/83 120/83 O2 Sat by Pulse 100 100 Oximetry O2 Sat by Pulse Oximetry [ Assessment] 01/03/20 01/03/20 01/03/20 23:55 23:57 23:58 Temperature Pulse Rate 109 H 117 H Pulse Rate [ 102 H From Monitor] Pulse Rate [ 102 H Right Dorsalis Pedis] Respiratory 24 Rate Blood Pressure 120/83 O2 Sat by Pulse 100 100 Oximetry O2 Sat by Pulse Oximetry [ Assessment] 01/04/20 01/04/20 01/04/20 00:00 00:48 01:00 Temperature Pulse Rate 108 H 110 H Pulse Rate [ From Monitor] Pulse Rate [ Right Dorsalis Pedis] Respiratory 25 H 28 H Rate Blood Pressure 122/86 140/93 O2 Sat by Pulse 100 100 Oximetry O2 Sat by Pulse 100 Oximetry [ Assessment] 01/04/20 01/04/20 01/04/20 02:00 03:00 03:07 Temperature 98.8 F Pulse Rate 109 H 107 H Pulse Rate [ From Monitor] Pulse Rate [ Right Dorsalis Pedis] Respiratory 24 27 H Rate Blood Pressure 124/84 139/91 O2 Sat by Pulse 100 100 Oximetry O2 Sat by Pulse Oximetry [ Assessment] 01/04/20 01/04/20 01/04/20 04:00 04:31 05:00 Temperature Pulse Rate 103 H 102 H 105 H Pulse Rate [ 102 H From Monitor] Pulse Rate [ 102 H Right Dorsalis Pedis] Respiratory 29 H 18 Rate Blood Pressure 145/91 145/91 135/85 O2 Sat by Pulse 100 100 100 Oximetry O2 Sat by Pulse Oximetry [ Assessment] 01/04/20 01/04/20 01/04/20 06:00 08:00 08:18 Temperature 98.7 F Pulse Rate 102 H 110 H Pulse Rate [ From Monitor] Pulse Rate [ Right Dorsalis Pedis] Respiratory 18 Rate Blood Pressure 130/81 132/88 O2 Sat by Pulse 100 100 100 Oximetry O2 Sat by Pulse Oximetry [ Assessment] Constitutional: no acute distress, lethargic Eyes: non-icteric ENT: oropharynx moist, other (s/p trach, copious oral secretions) Neck: supple, no lymphadenopathy, no JVD Effort: mildly labored Ascultation: Bilateral: diminished breath sounds, rhonchi Percussion: Bilateral: not dull Cardiovascular: regular rate and rhythm (tachycardia), other (S1,S2) Gastrointestinal: normoactive bowel sounds, soft, non-tender, non-distended Integumentary: normal Extremities: no cyanosis, no edema, pulses normal, no ischemia or petechiae Neurologic: unable to assess, other (awake but not tracking voice ) Psychiatric: other (Psychiatric: Unable to assess) CBC and BMP: 01/07/20 04:12 01/07/20 04:12 ABG, PT/INR, D-dimer: ABG ABG pH 7.440 pH Units (7.350-7.450) 12/30/19 04:23 ABG pCO2 36.6 mm Hg 12/30/19 04:23 ABG pO2 89.9 mm Hg (80.0-90.0) 12/30/19 04:23 ABG O2 Saturation 97.3 % (95.0-99.0) 12/30/19 04:23 PT/INR, D-dimer PT 17.0 Sec. (12.2-14.9) H 11/23/19 03:47 INR 1.36 (0.87-1.13) H 11/23/19 03:47 Abnormal lab findings: Abnormal Labs 11/22/19 11/22/19 11/22/19 23:17 23:18 23:27 WBC 21.2 H RBC 3.59 L Hgb 9.8 L Hct MCH 27 L RDW 18.6 H Plt Count 454 H Lymph % (Auto) [place] % (Auto) [place] # Baso # Seg Neutrophils % Seg Neuts % (Manual) 86.0 H Lymphocytes % (Manual) 9.0 L Monocytes % (Manual) Seg Neutrophils # Seg Neutrophils # Man 18.2 H Lymphocytes # (Manual) Monocytes # (Manual) 1.1 H Eosinophils # (Manual) Basophils # (Manual) PT INR APTT ABG pH ABG pO2 ABG HCO3 ABG O2 Saturation ABG Base Excess ABG Hemoglobin Oxyhemoglobin Sodium Potassium Chloride Carbon Dioxide BUN Creatinine Glucose POC Glucose 53 L Lactic Acid Calcium Ionized Calcium Phosphorus Magnesium Total Bilirubin AST ALT Alkaline Phosphatase Ammonia Total Creatine Kinase CK-MB (CK-2) CK-MB (CK-2) Rel Index Total Protein Albumin Urine WBC (Auto) 40.0 H Vancomycin Trough Salicylates Acetaminophen Plasma/Serum Alcohol Crossmatch 11/22/19 11/22/19 11/22/19 23:27 23:27 23:27 WBC RBC Hgb Hct MCH RDW Plt Count Lymph % (Auto) [place] % (Auto) [place] # Baso # Seg Neutrophils % Seg Neuts % (Manual) Lymphocytes % (Manual) Monocytes % (Manual) Seg Neutrophils # Seg Neutrophils # Man Lymphocytes # (Manual) Monocytes # (Manual) Eosinophils # (Manual) Basophils # (Manual) PT INR APTT ABG pH ABG pO2 ABG HCO3 ABG O2 Saturation ABG Base Excess ABG Hemoglobin Oxyhemoglobin Sodium Potassium 2.4 L* Chloride 85.1 L Carbon Dioxide 19 L BUN Creatinine 0.5 L Glucose 261 H POC Glucose Lactic Acid Calcium Ionized Calcium Phosphorus Magnesium Total Bilirubin AST 609 H ALT 152 H Alkaline Phosphatase 160 H Ammonia 117.0 H Total Creatine Kinase 139 H CK-MB (CK-2) 8.3 H CK-MB (CK-2) Rel Index 5.9 H Total Protein Albumin 3.6 L Urine WBC (Auto) Vancomycin Trough Salicylates < 0.3 L Acetaminophen Plasma/Serum Alcohol Crossmatch 11/22/19 11/22/19 11/23/19 23:27 23:27 01:10 WBC RBC Hgb Hct MCH RDW Plt Count Lymph % (Auto) [place] % (Auto) [place] # Baso # Seg Neutrophils % Seg Neuts % (Manual) Lymphocytes % (Manual) Monocytes % (Manual) Seg Neutrophils # Seg Neutrophils # Man Lymphocytes # (Manual) Monocytes # (Manual) Eosinophils # (Manual) Basophils # (Manual) PT INR APTT ABG pH 7.273 L ABG pO2 209.7 H ABG HCO3 ABG O2 Saturation 99.2 H ABG Base Excess -3.9 L ABG Hemoglobin 10.6 L Oxyhemoglobin 93.9 L Sodium Potassium Chloride Carbon Dioxide BUN Creatinine Glucose POC Glucose Lactic Acid Calcium Ionized Calcium Phosphorus Magnesium Total Bilirubin AST ALT Alkaline Phosphatase Ammonia Total Creatine Kinase CK-MB (CK-2) CK-MB (CK-2) Rel Index Total Protein Albumin Urine WBC (Auto) Vancomycin Trough Salicylates Acetaminophen < 5.0 L Plasma/Serum Alcohol 0.08 H Crossmatch 11/23/19 11/23/19 11/23/19 01:19 01:19 03:47 WBC RBC Hgb Hct MCH RDW Plt Count Lymph % (Auto) [place] % (Auto) [place] # Baso # Seg Neutrophils % Seg Neuts % (Manual) Lymphocytes % (Manual) Monocytes % (Manual) Seg Neutrophils # Seg Neutrophils # Man Lymphocytes # (Manual) Monocytes # (Manual) Eosinophils # (Manual) Basophils # (Manual) PT 16.3 H INR 1.29 H APTT ABG pH ABG pO2 ABG HCO3 ABG O2 Saturation ABG Base Excess ABG Hemoglobin Oxyhemoglobin Sodium Potassium Chloride Carbon Dioxide BUN Creatinine Glucose POC Glucose Lactic Acid 2.10 H* 5.00 H* Calcium Ionized Calcium Phosphorus Magnesium Total Bilirubin AST ALT Alkaline Phosphatase Ammonia Total Creatine Kinase CK-MB (CK-2) CK-MB (CK-2) Rel Index Total Protein Albumin Urine WBC (Auto) Vancomycin Trough Salicylates Acetaminophen Plasma/Serum Alcohol Crossmatch 11/23/19 11/23/19 11/23/19 03:47 03:47 04:53 WBC RBC Hgb 9.4 L Hct MCH RDW Plt Count Lymph % (Auto) [place] % (Auto) [place] # Baso # Seg Neutrophils % Seg Neuts % (Manual) Lymphocytes % (Manual) Monocytes % (Manual) Seg Neutrophils # Seg Neutrophils # Man Lymphocytes # (Manual) Monocytes # (Manual) Eosinophils # (Manual) Basophils # (Manual) PT 17.0 H INR 1.36 H APTT 128.2 H* ABG pH ABG pO2 ABG HCO3 ABG O2 Saturation ABG Base Excess ABG Hemoglobin Oxyhemoglobin Sodium Potassium Chloride Carbon Dioxide 18 L BUN Creatinine 0.5 L Glucose 105 H POC Glucose Lactic Acid Calcium 8.3 L Ionized Calcium Phosphorus 2.40 L Magnesium Total Bilirubin 1.30 H AST 761 H ALT 158 H Alkaline Phosphatase 143 H Ammonia Total Creatine Kinase CK-MB (CK-2) CK-MB (CK-2) Rel Index Total Protein Albumin 2.8 L Urine WBC (Auto) Vancomycin Trough Salicylates Acetaminophen Plasma/Serum Alcohol Crossmatch 11/23/19 11/23/19 11/23/19 05:12 06:32 06:32 WBC 16.8 H RBC 3.31 L Hgb 8.9 L Hct 28.7 L MCH 27 L RDW 18.6 H Plt Count Lymph % (Auto) [place] % (Auto) [place] # Baso # Seg Neutrophils % Seg Neuts % (Manual) 94.0 H Lymphocytes % (Manual) 1.0 L Monocytes % (Manual) Seg Neutrophils # Seg Neutrophils # Man 15.8 H Lymphocytes # (Manual) 0.2 L Monocytes # (Manual) Eosinophils # (Manual) Basophils # (Manual) PT INR APTT ABG pH ABG pO2 ABG HCO3 ABG O2 Saturation ABG Base Excess -3.2 L ABG Hemoglobin 9.0 L Oxyhemoglobin 93.6 L Sodium Potassium Chloride Carbon Dioxide BUN Creatinine Glucose POC Glucose Lactic Acid Calcium Ionized Calcium 4.5 L Phosphorus Magnesium Total Bilirubin AST ALT Alkaline Phosphatase Ammonia Total Creatine Kinase CK-MB (CK-2) CK-MB (CK-2) Rel Index Total Protein Albumin Urine WBC (Auto) Vancomycin Trough Salicylates Acetaminophen Plasma/Serum Alcohol Crossmatch 11/23/19 11/24/19 11/24/19 06:32 04:35 04:35 WBC RBC Hgb Hct MCH RDW Plt Count Lymph % (Auto) [place] % (Auto) [place] # Baso # Seg Neutrophils % Seg Neuts % (Manual) Lymphocytes % (Manual) Monocytes % (Manual) Seg Neutrophils # Seg Neutrophils # Man Lymphocytes # (Manual) Monocytes # (Manual) Eosinophils # (Manual) Basophils # (Manual) PT INR APTT ABG pH ABG pO2 ABG HCO3 ABG O2 Saturation ABG Base Excess ABG Hemoglobin Oxyhemoglobin Sodium Potassium Chloride Carbon Dioxide BUN Creatinine Glucose POC Glucose Lactic Acid 3.30 H* Calcium Ionized Calcium Phosphorus Magnesium 1.40 L Total Bilirubin AST ALT Alkaline Phosphatase Ammonia 98.0 H Total Creatine Kinase CK-MB (CK-2) CK-MB (CK-2) Rel Index Total Protein Albumin Urine WBC (Auto) Vancomycin Trough Salicylates Acetaminophen Plasma/Serum Alcohol Crossmatch 11/24/19 11/25/19 11/25/19 05:22 04:34 05:05 WBC 17.3 H RBC 2.88 L Hgb 7.8 L Hct 24.6 L MCH 27 L RDW 18.5 H Plt Count Lymph % (Auto) 7.7 L [place] % (Auto) 9.7 H [place] # 1.7 H Baso # Seg Neutrophils % 82.2 H Seg Neuts % (Manual) Lymphocytes % (Manual) Monocytes % (Manual) Seg Neutrophils # 14.2 H Seg Neutrophils # Man Lymphocytes # (Manual) Monocytes # (Manual) Eosinophils # (Manual) Basophils # (Manual) PT INR APTT ABG pH 7.475 H ABG pO2 ABG HCO3 29.4 H 32.3 H ABG O2 Saturation ABG Base Excess 5.4 H 6.9 H ABG Hemoglobin 9.0 L 10.6 L Oxyhemoglobin 94.3 L Sodium Potassium Chloride Carbon Dioxide BUN Creatinine Glucose POC Glucose Lactic Acid Calcium Ionized Calcium Phosphorus Magnesium Total Bilirubin AST ALT Alkaline Phosphatase Ammonia Total Creatine Kinase CK-MB (CK-2) CK-MB (CK-2) Rel Index Total Protein Albumin Urine WBC (Auto) Vancomycin Trough Salicylates Acetaminophen Plasma/Serum Alcohol Crossmatch 11/25/19 11/25/19 11/26/19 05:05 22:46 03:31 WBC RBC Hgb Hct MCH RDW Plt Count Lymph % (Auto) [place] % (Auto) [place] # Baso # Seg Neutrophils % Seg Neuts % (Manual) Lymphocytes % (Manual) Monocytes % (Manual) Seg Neutrophils # Seg Neutrophils # Man Lymphocytes # (Manual) Monocytes # (Manual) Eosinophils # (Manual) Basophils # (Manual) PT INR APTT ABG pH 7.459 H ABG pO2 ABG HCO3 34.2 H ABG O2 Saturation ABG Base Excess 9.4 H ABG Hemoglobin 7.6 L Oxyhemoglobin 94.8 L Sodium 152 H D 147 H Potassium 2.3 L* D 2.8 L* D Chloride 107.8 H Carbon Dioxide 31 H D 33 H BUN Creatinine 0.6 L 0.6 L Glucose 148 H 177 H POC Glucose Lactic Acid Calcium Ionized Calcium Phosphorus Magnesium Total Bilirubin AST 105 H ALT 71 H Alkaline Phosphatase 155 H Ammonia Total Creatine Kinase CK-MB (CK-2) CK-MB (CK-2) Rel Index Total Protein 5.2 L D Albumin 2.9 L Urine WBC (Auto) Vancomycin Trough Salicylates Acetaminophen Plasma/Serum Alcohol Crossmatch 11/26/19 11/26/19 11/27/19 08:24 08:24 04:20 WBC 12.0 H RBC 3.00 L Hgb 8.0 L 9.3 L Hct 25.9 L 29.7 L MCH 27 L RDW 18.5 H Plt Count Lymph % (Auto) [place] % (Auto) [place] # Baso # Seg Neutrophils % Seg Neuts % (Manual) 89.0 H Lymphocytes % (Manual) 4.0 L Monocytes % (Manual) Seg Neutrophils # Seg Neutrophils # Man 10.7 H Lymphocytes # (Manual) 0.5 L Monocytes # (Manual) Eosinophils # (Manual) Basophils # (Manual) PT INR APTT ABG pH ABG pO2 ABG HCO3 ABG O2 Saturation ABG Base Excess ABG Hemoglobin Oxyhemoglobin Sodium 146 H Potassium 3.4 L D Chloride Carbon Dioxide BUN Creatinine 0.5 L Glucose 165 H POC Glucose Lactic Acid Calcium Ionized Calcium Phosphorus Magnesium Total Bilirubin AST 57 H ALT Alkaline Phosphatase 166 H Ammonia Total Creatine Kinase CK-MB (CK-2) CK-MB (CK-2) Rel Index Total Protein Albumin 2.9 L Urine WBC (Auto) Vancomycin Trough Salicylates Acetaminophen Plasma/Serum Alcohol Crossmatch 11/27/19 11/27/19 11/27/19 04:28 04:28 04:42 WBC RBC Hgb Hct MCH RDW Plt Count Lymph % (Auto) [place] % (Auto) [place] # Baso # Seg Neutrophils % Seg Neuts % (Manual) Lymphocytes % (Manual) Monocytes % (Manual) Seg Neutrophils # Seg Neutrophils # Man Lymphocytes # (Manual) Monocytes # (Manual) Eosinophils # (Manual) Basophils # (Manual) PT INR APTT ABG pH 7.470 H ABG pO2 74.0 L ABG HCO3 33.8 H ABG O2 Saturation ABG Base Excess 9.1 H ABG Hemoglobin 8.7 L Oxyhemoglobin 94.7 L Sodium 146 H Potassium 2.9 L* Chloride Carbon Dioxide BUN 25 H Creatinine Glucose 213 H POC Glucose Lactic Acid Calcium Ionized Calcium Phosphorus 1.00 L Magnesium Total Bilirubin AST ALT Alkaline Phosphatase Ammonia Total Creatine Kinase CK-MB (CK-2) CK-MB (CK-2) Rel Index Total Protein Albumin Urine WBC (Auto) Vancomycin Trough Salicylates Acetaminophen Plasma/Serum Alcohol Crossmatch 11/27/19 11/27/19 11/27/19 05:37 12:20 15:46 WBC RBC Hgb Hct MCH RDW Plt Count Lymph % (Auto) [place] % (Auto) [place] # Baso # Seg Neutrophils % Seg Neuts % (Manual) Lymphocytes % (Manual) Monocytes % (Manual) Seg Neutrophils # Seg Neutrophils # Man Lymphocytes # (Manual) Monocytes # (Manual) Eosinophils # (Manual) Basophils # (Manual) PT INR APTT ABG pH ABG pO2 ABG HCO3 ABG O2 Saturation ABG Base Excess ABG Hemoglobin Oxyhemoglobin Sodium 146 H Potassium 3.5 L D Chloride Carbon Dioxide BUN 24 H Creatinine 0.6 L Glucose 187 H POC Glucose 117 H 220 H Lactic Acid Calcium Ionized Calcium Phosphorus Magnesium Total Bilirubin AST ALT Alkaline Phosphatase Ammonia Total Creatine Kinase CK-MB (CK-2) CK-MB (CK-2) Rel Index Total Protein Albumin Urine WBC (Auto) Vancomycin Trough Salicylates Acetaminophen Plasma/Serum Alcohol Crossmatch 11/27/19 11/28/19 11/28/19 17:28 05:00 05:02 WBC RBC Hgb Hct MCH RDW Plt Count Lymph % (Auto) [place] % (Auto) [place] # Baso # Seg Neutrophils % Seg Neuts % (Manual) Lymphocytes % (Manual) Monocytes % (Manual) Seg Neutrophils # Seg Neutrophils # Man Lymphocytes # (Manual) Monocytes # (Manual) Eosinophils # (Manual) Basophils # (Manual) PT INR APTT ABG pH ABG pO2 72.4 L ABG HCO3 33.6 H ABG O2 Saturation 94.1 L ABG Base Excess 7.3 H ABG Hemoglobin Oxyhemoglobin 91.8 L Sodium 146 H Potassium 3.3 L Chloride Carbon Dioxide BUN 25 H Creatinine 0.6 L Glucose 176 H POC Glucose 198 H Lactic Acid Calcium Ionized Calcium Phosphorus Magnesium Total Bilirubin AST ALT Alkaline Phosphatase Ammonia Total Creatine Kinase CK-MB (CK-2) CK-MB (CK-2) Rel Index Total Protein Albumin Urine WBC (Auto) Vancomycin Trough Salicylates Acetaminophen Plasma/Serum Alcohol Crossmatch 11/28/19 11/28/19 11/29/19 05:02 18:55 10:43 WBC 15.2 H 19.0 H RBC 3.06 L 3.01 L Hgb 8.3 L 8.3 L Hct 27.0 L 26.4 L MCH 27 L RDW 19.0 H 19.7 H Plt Count 479 H 611 H Lymph % (Auto) [place] % (Auto) [place] # Baso # Seg Neutrophils % Seg Neuts % (Manual) 92.0 H Lymphocytes % (Manual) 2.0 L Monocytes % (Manual) Seg Neutrophils # Seg Neutrophils # Man 14.0 H Lymphocytes # (Manual) 0.3 L Monocytes # (Manual) Eosinophils # (Manual) Basophils # (Manual) PT INR APTT ABG pH ABG pO2 ABG HCO3 ABG O2 Saturation ABG Base Excess ABG Hemoglobin Oxyhemoglobin Sodium Potassium Chloride Carbon Dioxide BUN Creatinine Glucose POC Glucose 138 H Lactic Acid Calcium Ionized Calcium Phosphorus Magnesium Total Bilirubin AST ALT Alkaline Phosphatase Ammonia Total Creatine Kinase CK-MB (CK-2) CK-MB (CK-2) Rel Index Total Protein Albumin Urine WBC (Auto) Vancomycin Trough Salicylates Acetaminophen Plasma/Serum Alcohol Crossmatch 11/29/19 11/29/19 11/29/19 10:43 12:27 19:25 WBC RBC Hgb Hct MCH RDW Plt Count Lymph % (Auto) [place] % (Auto) [place] # Baso # Seg Neutrophils % Seg Neuts % (Manual) Lymphocytes % (Manual) Monocytes % (Manual) Seg Neutrophils # Seg Neutrophils # Man Lymphocytes # (Manual) Monocytes # (Manual) Eosinophils # (Manual) Basophils # (Manual) PT INR APTT ABG pH ABG pO2 ABG HCO3 ABG O2 Saturation ABG Base Excess ABG Hemoglobin Oxyhemoglobin Sodium Potassium 2.8 L* Chloride Carbon Dioxide BUN 20 H Creatinine 0.5 L Glucose 121 H POC Glucose 128 H 120 H Lactic Acid Calcium Ionized Calcium Phosphorus Magnesium Total Bilirubin AST ALT Alkaline Phosphatase Ammonia Total Creatine Kinase CK-MB (CK-2) CK-MB (CK-2) Rel Index Total Protein Albumin Urine WBC (Auto) Vancomycin Trough Salicylates Acetaminophen Plasma/Serum Alcohol Crossmatch 11/29/19 11/30/19 11/30/19 23:46 04:10 05:02 WBC RBC Hgb Hct MCH RDW Plt Count Lymph % (Auto) [place] % (Auto) [place] # Baso # Seg Neutrophils % Seg Neuts % (Manual) Lymphocytes % (Manual) Monocytes % (Manual) Seg Neutrophils # Seg Neutrophils # Man Lymphocytes # (Manual) Monocytes # (Manual) Eosinophils # (Manual) Basophils # (Manual) PT INR APTT ABG pH ABG pO2 76.3 L ABG HCO3 32.5 H ABG O2 Saturation ABG Base Excess 6.9 H ABG Hemoglobin 8.0 L Oxyhemoglobin 92.6 L Sodium Potassium Chloride Carbon Dioxide BUN Creatinine Glucose POC Glucose 116 H 128 H Lactic Acid Calcium Ionized Calcium Phosphorus Magnesium Total Bilirubin AST ALT Alkaline Phosphatase Ammonia Total Creatine Kinase CK-MB (CK-2) CK-MB (CK-2) Rel Index Total Protein Albumin Urine WBC (Auto) Vancomycin Trough Salicylates Acetaminophen Plasma/Serum Alcohol Crossmatch 11/30/19 11/30/19 11/30/19 05:25 05:25 12:59 WBC 18.4 H RBC 3.10 L Hgb 8.5 L Hct 27.5 L MCH 27 L RDW 20.9 H Plt Count 691 H Lymph % (Auto) 7.1 L [place] % (Auto) 7.7 H [place] # 1.4 H Baso # Seg Neutrophils % 83.4 H Seg Neuts % (Manual) Lymphocytes % (Manual) Monocytes % (Manual) Seg Neutrophils # 15.4 H Seg Neutrophils # Man Lymphocytes # (Manual) Monocytes # (Manual) Eosinophils # (Manual) Basophils # (Manual) PT INR APTT ABG pH ABG pO2 ABG HCO3 ABG O2 Saturation ABG Base Excess ABG Hemoglobin Oxyhemoglobin Sodium 146 H Potassium Chloride 107.2 H Carbon Dioxide BUN Creatinine 0.5 L Glucose 132 H POC Glucose 124 H Lactic Acid Calcium Ionized Calcium Phosphorus Magnesium Total Bilirubin AST 246 H ALT 274 H Alkaline Phosphatase 203 H Ammonia Total Creatine Kinase CK-MB (CK-2) CK-MB (CK-2) Rel Index Total Protein 5.4 L Albumin 2.9 L Urine WBC (Auto) Vancomycin Trough Salicylates Acetaminophen Plasma/Serum Alcohol Crossmatch 11/30/19 12/01/19 12/01/19 17:53 00:05 05:10 WBC RBC Hgb Hct MCH RDW Plt Count Lymph % (Auto) [place] % (Auto) [place] # Baso # Seg Neutrophils % Seg Neuts % (Manual) Lymphocytes % (Manual) Monocytes % (Manual) Seg Neutrophils # Seg Neutrophils # Man Lymphocytes # (Manual) Monocytes # (Manual) Eosinophils # (Manual) Basophils # (Manual) PT INR APTT ABG pH ABG pO2 ABG HCO3 ABG O2 Saturation ABG Base Excess ABG Hemoglobin Oxyhemoglobin Sodium Potassium Chloride Carbon Dioxide BUN Creatinine Glucose POC Glucose 113 H 143 H 145 H Lactic Acid Calcium Ionized Calcium Phosphorus Magnesium Total Bilirubin AST ALT Alkaline Phosphatase Ammonia Total Creatine Kinase CK-MB (CK-2) CK-MB (CK-2) Rel Index Total Protein Albumin Urine WBC (Auto) Vancomycin Trough Salicylates Acetaminophen Plasma/Serum Alcohol Crossmatch 12/01/19 12/01/19 12/01/19 05:33 08:23 08:23 WBC 22.7 H RBC 2.88 L Hgb 7.9 L Hct 25.2 L MCH 27 L RDW 21.0 H Plt Count 732 H Lymph % (Auto) [place] % (Auto) [place] # Baso # Seg Neutrophils % Seg Neuts % (Manual) 91.0 H Lymphocytes % (Manual) 3.0 L Monocytes % (Manual) Seg Neutrophils # Seg Neutrophils # Man 20.7 H Lymphocytes # (Manual) 0.7 L Monocytes # (Manual) 1.1 H Eosinophils # (Manual) Basophils # (Manual) PT INR APTT ABG pH ABG pO2 68.6 L ABG HCO3 34.1 H ABG O2 Saturation ABG Base Excess 9.0 H ABG Hemoglobin 6.5 L Oxyhemoglobin 94.7 L Sodium Potassium Chloride Carbon Dioxide BUN Creatinine 0.5 L Glucose 125 H POC Glucose Lactic Acid Calcium Ionized Calcium Phosphorus Magnesium Total Bilirubin AST ALT Alkaline Phosphatase Ammonia Total Creatine Kinase CK-MB (CK-2) CK-MB (CK-2) Rel Index Total Protein Albumin Urine WBC (Auto) Vancomycin Trough Salicylates Acetaminophen Plasma/Serum Alcohol Crossmatch 12/01/19 12/01/19 12/01/19 13:21 17:54 20:59 WBC RBC Hgb Hct MCH RDW Plt Count Lymph % (Auto) [place] % (Auto) [place] # Baso # Seg Neutrophils % Seg Neuts % (Manual) Lymphocytes % (Manual) Monocytes % (Manual) Seg Neutrophils # Seg Neutrophils # Man Lymphocytes # (Manual) Monocytes # (Manual) Eosinophils # (Manual) Basophils # (Manual) PT INR APTT ABG pH ABG pO2 78.3 L ABG HCO3 33.8 H ABG O2 Saturation 94.9 L ABG Base Excess 7.9 H ABG Hemoglobin 11.5 L Oxyhemoglobin 92.3 L Sodium Potassium Chloride Carbon Dioxide BUN Creatinine Glucose POC Glucose 111 H 115 H Lactic Acid Calcium Ionized Calcium Phosphorus Magnesium Total Bilirubin AST ALT Alkaline Phosphatase Ammonia Total Creatine Kinase CK-MB (CK-2) CK-MB (CK-2) Rel Index Total Protein Albumin Urine WBC (Auto) Vancomycin Trough Salicylates Acetaminophen Plasma/Serum Alcohol Crossmatch 12/02/19 12/03/19 12/04/19 12:55 20:00 04:26 WBC 15.2 H RBC 2.69 L Hgb 7.4 L Hct 23.6 L MCH 27 L RDW 19.9 H Plt Count 838 H Lymph % (Auto) [place] % (Auto) [place] # Baso # Seg Neutrophils % Seg Neuts % (Manual) Lymphocytes % (Manual) Monocytes % (Manual) Seg Neutrophils # Seg Neutrophils # Man Lymphocytes # (Manual) Monocytes # (Manual) Eosinophils # (Manual) Basophils # (Manual) PT INR APTT ABG pH ABG pO2 68.3 L ABG HCO3 33.5 H ABG O2 Saturation 93.5 L ABG Base Excess 8.4 H ABG Hemoglobin 7.3 L Oxyhemoglobin 90.9 L Sodium Potassium Chloride Carbon Dioxide BUN Creatinine Glucose POC Glucose 107 H Lactic Acid Calcium Ionized Calcium Phosphorus Magnesium Total Bilirubin AST ALT Alkaline Phosphatase Ammonia Total Creatine Kinase CK-MB (CK-2) CK-MB (CK-2) Rel Index Total Protein Albumin Urine WBC (Auto) Vancomycin Trough Salicylates Acetaminophen Plasma/Serum Alcohol Crossmatch 12/04/19 12/04/19 12/04/19 04:26 07:45 12:02 WBC 15.9 H RBC 2.88 L Hgb 7.9 L Hct 25.1 L MCH RDW 20.4 H Plt Count 839 H Lymph % (Auto) 11.3 L [place] % (Auto) 15.2 H [place] # 2.4 H Baso # Seg Neutrophils % 72.4 H Seg Neuts % (Manual) Lymphocytes % (Manual) Monocytes % (Manual) Seg Neutrophils # 11.5 H Seg Neutrophils # Man Lymphocytes # (Manual) Monocytes # (Manual) Eosinophils # (Manual) Basophils # (Manual) PT INR APTT ABG pH ABG pO2 ABG HCO3 ABG O2 Saturation ABG Base Excess ABG Hemoglobin Oxyhemoglobin Sodium Potassium Chloride 96.5 L Carbon Dioxide BUN 21 H Creatinine 0.6 L Glucose 107 H POC Glucose 138 H Lactic Acid Calcium Ionized Calcium Phosphorus Magnesium Total Bilirubin AST ALT Alkaline Phosphatase Ammonia Total Creatine Kinase CK-MB (CK-2) CK-MB (CK-2) Rel Index Total Protein Albumin Urine WBC (Auto) Vancomycin Trough Salicylates Acetaminophen Plasma/Serum Alcohol Crossmatch 12/04/19 12/05/19 12/05/19 18:16 11:55 18:36 WBC RBC Hgb Hct MCH RDW Plt Count Lymph % (Auto) [place] % (Auto) [place] # Baso # Seg Neutrophils % Seg Neuts % (Manual) Lymphocytes % (Manual) Monocytes % (Manual) Seg Neutrophils # Seg Neutrophils # Man Lymphocytes # (Manual) Monocytes # (Manual) Eosinophils # (Manual) Basophils # (Manual) PT INR APTT ABG pH ABG pO2 ABG HCO3 ABG O2 Saturation ABG Base Excess ABG Hemoglobin Oxyhemoglobin Sodium Potassium Chloride Carbon Dioxide BUN Creatinine Glucose POC Glucose 135 H 125 H 135 H Lactic Acid Calcium Ionized Calcium Phosphorus Magnesium Total Bilirubin AST ALT Alkaline Phosphatase Ammonia Total Creatine Kinase CK-MB (CK-2) CK-MB (CK-2) Rel Index Total Protein Albumin Urine WBC (Auto) Vancomycin Trough Salicylates Acetaminophen Plasma/Serum Alcohol Crossmatch 12/05/19 12/06/19 12/06/19 23:30 04:14 05:43 WBC RBC Hgb Hct MCH RDW Plt Count Lymph % (Auto) [place] % (Auto) [place] # Baso # Seg Neutrophils % Seg Neuts % (Manual) Lymphocytes % (Manual) Monocytes % (Manual) Seg Neutrophils # Seg Neutrophils # Man Lymphocytes # (Manual) Monocytes # (Manual) Eosinophils # (Manual) Basophils # (Manual) PT INR APTT ABG pH ABG pO2 ABG HCO3 ABG O2 Saturation ABG Base Excess ABG Hemoglobin Oxyhemoglobin Sodium Potassium 5.6 H Chloride 95.0 L Carbon Dioxide BUN 48 H Creatinine 1.3 H D Glucose POC Glucose 126 H 121 H Lactic Acid Calcium Ionized Calcium Phosphorus Magnesium Total Bilirubin AST 89 H ALT 98 H Alkaline Phosphatase 476 H Ammonia Total Creatine Kinase CK-MB (CK-2) CK-MB (CK-2) Rel Index Total Protein Albumin 2.8 L Urine WBC (Auto) Vancomycin Trough Salicylates Acetaminophen Plasma/Serum Alcohol Crossmatch 12/06/19 12/06/19 12/07/19 10:39 14:34 00:19 WBC 17.3 H RBC 2.60 L Hgb 7.1 L Hct 22.7 L MCH 27 L RDW 20.1 H Plt Count 832 H Lymph % (Auto) [place] % (Auto) [place] # Baso # Seg Neutrophils % Seg Neuts % (Manual) Lymphocytes % (Manual) Monocytes % (Manual) Seg Neutrophils # Seg Neutrophils # Man Lymphocytes # (Manual) Monocytes # (Manual) Eosinophils # (Manual) Basophils # (Manual) PT INR APTT ABG pH ABG pO2 ABG HCO3 ABG O2 Saturation ABG Base Excess ABG Hemoglobin Oxyhemoglobin Sodium Potassium Chloride Carbon Dioxide BUN Creatinine Glucose POC Glucose 128 H 136 H Lactic Acid Calcium Ionized Calcium Phosphorus Magnesium Total Bilirubin AST ALT Alkaline Phosphatase Ammonia Total Creatine Kinase CK-MB (CK-2) CK-MB (CK-2) Rel Index Total Protein Albumin Urine WBC (Auto) Vancomycin Trough Salicylates Acetaminophen Plasma/Serum Alcohol Crossmatch 12/07/19 12/07/19 12/07/19 03:44 03:44 05:53 WBC 16.2 H RBC 2.56 L Hgb 7.1 L Hct 22.3 L MCH RDW 19.4 H Plt Count 782 H Lymph % (Auto) [place] % (Auto) [place] # Baso # Seg Neutrophils % Seg Neuts % (Manual) Lymphocytes % (Manual) Monocytes % (Manual) Seg Neutrophils # Seg Neutrophils # Man Lymphocytes # (Manual) Monocytes # (Manual) Eosinophils # (Manual) Basophils # (Manual) PT INR APTT ABG pH ABG pO2 ABG HCO3 ABG O2 Saturation ABG Base Excess ABG Hemoglobin Oxyhemoglobin Sodium Potassium Chloride 95.6 L Carbon Dioxide BUN 56 H Creatinine 1.4 H Glucose 120 H POC Glucose 128 H Lactic Acid Calcium 10.3 H Ionized Calcium Phosphorus Magnesium Total Bilirubin AST ALT Alkaline Phosphatase Ammonia Total Creatine Kinase CK-MB (CK-2) CK-MB (CK-2) Rel Index Total Protein Albumin Urine WBC (Auto) Vancomycin Trough Salicylates Acetaminophen Plasma/Serum Alcohol Crossmatch 12/07/19 12/07/19 12/08/19 12:54 23:47 00:20 WBC RBC Hgb Hct MCH RDW Plt Count Lymph % (Auto) [place] % (Auto) [place] # Baso # Seg Neutrophils % Seg Neuts % (Manual) Lymphocytes % (Manual) Monocytes % (Manual) Seg Neutrophils # Seg Neutrophils # Man Lymphocytes # (Manual) Monocytes # (Manual) Eosinophils # (Manual) Basophils # (Manual) PT INR APTT ABG pH ABG pO2 ABG HCO3 ABG O2 Saturation ABG Base Excess ABG Hemoglobin Oxyhemoglobin Sodium Potassium Chloride Carbon Dioxide BUN Creatinine Glucose POC Glucose 128 H 130 H 124 H Lactic Acid Calcium Ionized Calcium Phosphorus Magnesium Total Bilirubin AST ALT Alkaline Phosphatase Ammonia Total Creatine Kinase CK-MB (CK-2) CK-MB (CK-2) Rel Index Total Protein Albumin Urine WBC (Auto) Vancomycin Trough Salicylates Acetaminophen Plasma/Serum Alcohol Crossmatch 12/08/19 12/08/19 12/08/19 06:38 12:04 18:26 WBC RBC Hgb Hct MCH RDW Plt Count Lymph % (Auto) [place] % (Auto) [place] # Baso # Seg Neutrophils % Seg Neuts % (Manual) Lymphocytes % (Manual) Monocytes % (Manual) Seg Neutrophils # Seg Neutrophils # Man Lymphocytes # (Manual) Monocytes # (Manual) Eosinophils # (Manual) Basophils # (Manual) PT INR APTT ABG pH ABG pO2 ABG HCO3 ABG O2 Saturation ABG Base Excess ABG Hemoglobin Oxyhemoglobin Sodium Potassium Chloride Carbon Dioxide BUN Creatinine Glucose POC Glucose 137 H 129 H 150 H Lactic Acid Calcium Ionized Calcium Phosphorus Magnesium Total Bilirubin AST ALT Alkaline Phosphatase Ammonia Total Creatine Kinase CK-MB (CK-2) CK-MB (CK-2) Rel Index Total Protein Albumin Urine WBC (Auto) Vancomycin Trough Salicylates Acetaminophen Plasma/Serum Alcohol Crossmatch 12/09/19 12/09/19 12/09/19 00:56 05:34 06:13 WBC RBC Hgb Hct MCH RDW Plt Count Lymph % (Auto) [place] % (Auto) [place] # Baso # Seg Neutrophils % Seg Neuts % (Manual) Lymphocytes % (Manual) Monocytes % (Manual) Seg Neutrophils # Seg Neutrophils # Man Lymphocytes # (Manual) Monocytes # (Manual) Eosinophils # (Manual) Basophils # (Manual) PT INR APTT ABG pH ABG pO2 ABG HCO3 ABG O2 Saturation ABG Base Excess ABG Hemoglobin Oxyhemoglobin Sodium 146 H Potassium Chloride Carbon Dioxide BUN 66 H Creatinine 1.9 H Glucose 116 H POC Glucose 130 H 130 H Lactic Acid Calcium Ionized Calcium Phosphorus Magnesium Total Bilirubin AST ALT Alkaline Phosphatase Ammonia Total Creatine Kinase CK-MB (CK-2) CK-MB (CK-2) Rel Index Total Protein Albumin Urine WBC (Auto) Vancomycin Trough Salicylates Acetaminophen Plasma/Serum Alcohol Crossmatch 12/09/19 12/09/19 12/10/19 11:52 17:50 00:14 WBC RBC Hgb Hct MCH RDW Plt Count Lymph % (Auto) [place] % (Auto) [place] # Baso # Seg Neutrophils % Seg Neuts % (Manual) Lymphocytes % (Manual) Monocytes % (Manual) Seg Neutrophils # Seg Neutrophils # Man Lymphocytes # (Manual) Monocytes # (Manual) Eosinophils # (Manual) Basophils # (Manual) PT INR APTT ABG pH ABG pO2 ABG HCO3 ABG O2 Saturation ABG Base Excess ABG Hemoglobin Oxyhemoglobin Sodium Potassium Chloride Carbon Dioxide BUN Creatinine Glucose POC Glucose 135 H 120 H 116 H Lactic Acid Calcium Ionized Calcium Phosphorus Magnesium Total Bilirubin AST ALT Alkaline Phosphatase Ammonia Total Creatine Kinase CK-MB (CK-2) CK-MB (CK-2) Rel Index Total Protein Albumin Urine WBC (Auto) Vancomycin Trough Salicylates Acetaminophen Plasma/Serum Alcohol Crossmatch 12/10/19 12/10/19 12/10/19 05:38 11:38 17:34 WBC RBC Hgb Hct MCH RDW Plt Count Lymph % (Auto) [place] % (Auto) [place] # Baso # Seg Neutrophils % Seg Neuts % (Manual) Lymphocytes % (Manual) Monocytes % (Manual) Seg Neutrophils # Seg Neutrophils # Man Lymphocytes # (Manual) Monocytes # (Manual) Eosinophils # (Manual) Basophils # (Manual) PT INR APTT ABG pH ABG pO2 ABG HCO3 ABG O2 Saturation ABG Base Excess ABG Hemoglobin Oxyhemoglobin Sodium Potassium Chloride Carbon Dioxide BUN Creatinine Glucose POC Glucose 115 H 112 H 130 H Lactic Acid Calcium Ionized Calcium Phosphorus Magnesium Total Bilirubin AST ALT Alkaline Phosphatase Ammonia Total Creatine Kinase CK-MB (CK-2) CK-MB (CK-2) Rel Index Total Protein Albumin Urine WBC (Auto) Vancomycin Trough Salicylates Acetaminophen Plasma/Serum Alcohol Crossmatch 12/11/19 12/11/19 12/11/19 00:20 05:31 12:22 WBC RBC Hgb Hct MCH RDW Plt Count Lymph % (Auto) [place] % (Auto) [place] # Baso # Seg Neutrophils % Seg Neuts % (Manual) Lymphocytes % (Manual) Monocytes % (Manual) Seg Neutrophils # Seg Neutrophils # Man Lymphocytes # (Manual) Monocytes # (Manual) Eosinophils # (Manual) Basophils # (Manual) PT INR APTT ABG pH ABG pO2 ABG HCO3 ABG O2 Saturation ABG Base Excess ABG Hemoglobin Oxyhemoglobin Sodium Potassium Chloride Carbon Dioxide BUN Creatinine Glucose POC Glucose 124 H 132 H 128 H Lactic Acid Calcium Ionized Calcium Phosphorus Magnesium Total Bilirubin AST ALT Alkaline Phosphatase Ammonia Total Creatine Kinase CK-MB (CK-2) CK-MB (CK-2) Rel Index Total Protein Albumin Urine WBC (Auto) Vancomycin Trough Salicylates Acetaminophen Plasma/Serum Alcohol Crossmatch 12/11/19 12/11/19 12/12/19 18:04 23:42 03:51 WBC RBC Hgb Hct MCH RDW Plt Count Lymph % (Auto) [place] % (Auto) [place] # Baso # Seg Neutrophils % Seg Neuts % (Manual) Lymphocytes % (Manual) Monocytes % (Manual) Seg Neutrophils # Seg Neutrophils # Man Lymphocytes # (Manual) Monocytes # (Manual) Eosinophils # (Manual) Basophils # (Manual) PT INR APTT ABG pH ABG pO2 ABG HCO3 ABG O2 Saturation ABG Base Excess ABG Hemoglobin Oxyhemoglobin Sodium 149 H Potassium Chloride Carbon Dioxide 20 L D BUN 77 H Creatinine 2.8 H Glucose POC Glucose 133 H 154 H Lactic Acid Calcium Ionized Calcium Phosphorus Magnesium Total Bilirubin AST ALT Alkaline Phosphatase Ammonia Total Creatine Kinase CK-MB (CK-2) CK-MB (CK-2) Rel Index Total Protein Albumin Urine WBC (Auto) Vancomycin Trough Salicylates Acetaminophen Plasma/Serum Alcohol Crossmatch 12/12/19 12/12/19 12/12/19 05:18 05:26 10:30 WBC 18.0 H RBC 2.51 L Hgb 6.8 L Hct 22.0 L MCH 27 L RDW 19.9 H Plt Count 582 H Lymph % (Auto) [place] % (Auto) [place] # Baso # Seg Neutrophils % Seg Neuts % (Manual) Lymphocytes % (Manual) Monocytes % (Manual) Seg Neutrophils # Seg Neutrophils # Man Lymphocytes # (Manual) Monocytes # (Manual) Eosinophils # (Manual) Basophils # (Manual) PT INR APTT ABG pH ABG pO2 ABG HCO3 ABG O2 Saturation ABG Base Excess ABG Hemoglobin Oxyhemoglobin Sodium Potassium Chloride Carbon Dioxide BUN Creatinine Glucose POC Glucose 135 H Lactic Acid Calcium Ionized Calcium Phosphorus Magnesium Total Bilirubin AST ALT Alkaline Phosphatase Ammonia Total Creatine Kinase CK-MB (CK-2) CK-MB (CK-2) Rel Index Total Protein Albumin Urine WBC (Auto) Vancomycin Trough Salicylates Acetaminophen Plasma/Serum Alcohol Crossmatch See Detail 12/12/19 12/12/19 12/12/19 11:44 18:10 23:21 WBC RBC Hgb Hct MCH RDW Plt Count Lymph % (Auto) [place] % (Auto) [place] # Baso # Seg Neutrophils % Seg Neuts % (Manual) Lymphocytes % (Manual) Monocytes % (Manual) Seg Neutrophils # Seg Neutrophils # Man Lymphocytes # (Manual) Monocytes # (Manual) Eosinophils # (Manual) Basophils # (Manual) PT INR APTT ABG pH ABG pO2 ABG HCO3 ABG O2 Saturation ABG Base Excess ABG Hemoglobin Oxyhemoglobin Sodium Potassium Chloride Carbon Dioxide BUN Creatinine Glucose POC Glucose 108 H 107 H 126 H Lactic Acid Calcium Ionized Calcium Phosphorus Magnesium Total Bilirubin AST ALT Alkaline Phosphatase Ammonia Total Creatine Kinase CK-MB (CK-2) CK-MB (CK-2) Rel Index Total Protein Albumin Urine WBC (Auto) Vancomycin Trough Salicylates Acetaminophen Plasma/Serum Alcohol Crossmatch 12/13/19 12/13/19 12/13/19 05:41 07:48 07:48 WBC 38.3 H RBC 2.37 L Hgb 6.3 L Hct 20.9 L MCH 27 L RDW 20.2 H Plt Count 546 H Lymph % (Auto) [place] % (Auto) [place] # Baso # Seg Neutrophils % Seg Neuts % (Manual) 93.0 H Lymphocytes % (Manual) 1.0 L Monocytes % (Manual) Seg Neutrophils # Seg Neutrophils # Man 35.6 H Lymphocytes # (Manual) 0.4 L Monocytes # (Manual) Eosinophils # (Manual) Basophils # (Manual) 0.4 H PT INR APTT ABG pH ABG pO2 ABG HCO3 ABG O2 Saturation ABG Base Excess ABG Hemoglobin Oxyhemoglobin Sodium 152 H Potassium 3.1 L D Chloride 111.9 H Carbon Dioxide 21 L BUN 53 H Creatinine 1.9 H Glucose 141 H POC Glucose 128 H Lactic Acid Calcium Ionized Calcium Phosphorus Magnesium Total Bilirubin AST ALT Alkaline Phosphatase 316 H Ammonia Total Creatine Kinase CK-MB (CK-2) CK-MB (CK-2) Rel Index Total Protein Albumin 2.4 L Urine WBC (Auto) Vancomycin Trough Salicylates Acetaminophen Plasma/Serum Alcohol Crossmatch 12/13/19 12/13/19 12/14/19 18:17 23:19 05:36 WBC RBC Hgb Hct MCH RDW Plt Count Lymph % (Auto) [place] % (Auto) [place] # Baso # Seg Neutrophils % Seg Neuts % (Manual) Lymphocytes % (Manual) Monocytes % (Manual) Seg Neutrophils # Seg Neutrophils # Man Lymphocytes # (Manual) Monocytes # (Manual) Eosinophils # (Manual) Basophils # (Manual) PT INR APTT ABG pH ABG pO2 ABG HCO3 ABG O2 Saturation ABG Base Excess ABG Hemoglobin Oxyhemoglobin Sodium Potassium Chloride Carbon Dioxide BUN Creatinine Glucose POC Glucose 141 H 158 H 182 H Lactic Acid Calcium Ionized Calcium Phosphorus Magnesium Total Bilirubin AST ALT Alkaline Phosphatase Ammonia Total Creatine Kinase CK-MB (CK-2) CK-MB (CK-2) Rel Index Total Protein Albumin Urine WBC (Auto) Vancomycin Trough Salicylates Acetaminophen Plasma/Serum Alcohol Crossmatch 12/14/19 12/14/19 12/14/19 08:48 08:48 10:31 WBC 33.3 H RBC 2.70 L Hgb 7.9 L 8.0 L Hct 25.3 L 24.0 L MCH RDW 19.2 H Plt Count 476 H Lymph % (Auto) [place] % (Auto) [place] # Baso # Seg Neutrophils % Seg Neuts % (Manual) Lymphocytes % (Manual) Monocytes % (Manual) Seg Neutrophils # Seg Neutrophils # Man Lymphocytes # (Manual) Monocytes # (Manual) Eosinophils # (Manual) Basophils # (Manual) PT INR APTT ABG pH ABG pO2 ABG HCO3 ABG O2 Saturation ABG Base Excess ABG Hemoglobin Oxyhemoglobin Sodium 153 H Potassium 2.5 L* Chloride 114.9 H Carbon Dioxide 20 L BUN 38 H Creatinine 1.4 H Glucose 177 H POC Glucose Lactic Acid Calcium Ionized Calcium Phosphorus Magnesium Total Bilirubin AST ALT Alkaline Phosphatase Ammonia Total Creatine Kinase CK-MB (CK-2) CK-MB (CK-2) Rel Index Total Protein Albumin Urine WBC (Auto) Vancomycin Trough Salicylates Acetaminophen Plasma/Serum Alcohol Crossmatch 12/14/19 12/14/19 12/14/19 12:57 16:15 17:50 WBC RBC Hgb Hct MCH RDW Plt Count Lymph % (Auto) [place] % (Auto) [place] # Baso # Seg Neutrophils % Seg Neuts % (Manual) Lymphocytes % (Manual) Monocytes % (Manual) Seg Neutrophils # Seg Neutrophils # Man Lymphocytes # (Manual) Monocytes # (Manual) Eosinophils # (Manual) Basophils # (Manual) PT INR APTT ABG pH ABG pO2 73.6 L ABG HCO3 ABG O2 Saturation ABG Base Excess ABG Hemoglobin 7.6 L Oxyhemoglobin 94.0 L Sodium Potassium Chloride Carbon Dioxide BUN Creatinine Glucose POC Glucose 174 H 150 H Lactic Acid Calcium Ionized Calcium Phosphorus Magnesium Total Bilirubin AST ALT Alkaline Phosphatase Ammonia Total Creatine Kinase CK-MB (CK-2) CK-MB (CK-2) Rel Index Total Protein Albumin Urine WBC (Auto) Vancomycin Trough Salicylates Acetaminophen Plasma/Serum Alcohol Crossmatch 12/15/19 12/15/19 12/15/19 00:28 05:27 07:23 WBC 30.0 H RBC 3.11 L Hgb 8.6 L Hct 27.7 L MCH RDW 20.0 H Plt Count 473 H Lymph % (Auto) [place] % (Auto) [place] # Baso # Seg Neutrophils % Seg Neuts % (Manual) Lymphocytes % (Manual) Monocytes % (Manual) Seg Neutrophils # Seg Neutrophils # Man Lymphocytes # (Manual) Monocytes # (Manual) Eosinophils # (Manual) Basophils # (Manual) PT INR APTT ABG pH ABG pO2 ABG HCO3 ABG O2 Saturation ABG Base Excess ABG Hemoglobin Oxyhemoglobin Sodium Potassium Chloride Carbon Dioxide BUN Creatinine Glucose POC Glucose 167 H 148 H Lactic Acid Calcium Ionized Calcium Phosphorus Magnesium Total Bilirubin AST ALT Alkaline Phosphatase Ammonia Total Creatine Kinase CK-MB (CK-2) CK-MB (CK-2) Rel Index Total Protein Albumin Urine WBC (Auto) Vancomycin Trough Salicylates Acetaminophen Plasma/Serum Alcohol Crossmatch 12/15/19 12/15/19 12/15/19 07:23 12:21 17:41 WBC RBC Hgb Hct MCH RDW Plt Count Lymph % (Auto) [place] % (Auto) [place] # Baso # Seg Neutrophils % Seg Neuts % (Manual) Lymphocytes % (Manual) Monocytes % (Manual) Seg Neutrophils # Seg Neutrophils # Man Lymphocytes # (Manual) Monocytes # (Manual) Eosinophils # (Manual) Basophils # (Manual) PT INR APTT ABG pH ABG pO2 ABG HCO3 ABG O2 Saturation ABG Base Excess ABG Hemoglobin Oxyhemoglobin Sodium 147 H Potassium 3.5 L D Chloride 111.2 H Carbon Dioxide 19 L BUN 29 H Creatinine Glucose 126 H POC Glucose 154 H 144 H Lactic Acid Calcium Ionized Calcium Phosphorus Magnesium Total Bilirubin AST ALT Alkaline Phosphatase Ammonia Total Creatine Kinase CK-MB (CK-2) CK-MB (CK-2) Rel Index Total Protein Albumin Urine WBC (Auto) Vancomycin Trough Salicylates Acetaminophen Plasma/Serum Alcohol Crossmatch 12/16/19 12/16/19 12/16/19 00:22 05:30 05:44 WBC 30.8 H RBC 2.58 L Hgb 7.1 L Hct 22.7 L MCH RDW 19.6 H Plt Count 451 H Lymph % (Auto) [place] % (Auto) [place] # Baso # Seg Neutrophils % Seg Neuts % (Manual) Lymphocytes % (Manual) Monocytes % (Manual) Seg Neutrophils # Seg Neutrophils # Man Lymphocytes # (Manual) Monocytes # (Manual) Eosinophils # (Manual) Basophils # (Manual) PT INR APTT ABG pH ABG pO2 ABG HCO3 ABG O2 Saturation ABG Base Excess ABG Hemoglobin Oxyhemoglobin Sodium Potassium Chloride Carbon Dioxide BUN Creatinine Glucose POC Glucose 139 H 126 H Lactic Acid Calcium Ionized Calcium Phosphorus Magnesium Total Bilirubin AST ALT Alkaline Phosphatase Ammonia Total Creatine Kinase CK-MB (CK-2) CK-MB (CK-2) Rel Index Total Protein Albumin Urine WBC (Auto) Vancomycin Trough Salicylates Acetaminophen Plasma/Serum Alcohol Crossmatch 12/16/19 12/16/19 12/16/19 05:44 11:48 17:37 WBC RBC Hgb Hct MCH RDW Plt Count Lymph % (Auto) [place] % (Auto) [place] # Baso # Seg Neutrophils % Seg Neuts % (Manual) Lymphocytes % (Manual) Monocytes % (Manual) Seg Neutrophils # Seg Neutrophils # Man Lymphocytes # (Manual) Monocytes # (Manual) Eosinophils # (Manual) Basophils # (Manual) PT INR APTT ABG pH ABG pO2 ABG HCO3 ABG O2 Saturation ABG Base Excess ABG Hemoglobin Oxyhemoglobin Sodium Potassium 3.4 L Chloride 109.2 H Carbon Dioxide 19 L BUN 27 H Creatinine Glucose 124 H POC Glucose 125 H 148 H Lactic Acid Calcium Ionized Calcium Phosphorus Magnesium Total Bilirubin AST ALT Alkaline Phosphatase Ammonia Total Creatine Kinase CK-MB (CK-2) CK-MB (CK-2) Rel Index Total Protein Albumin Urine WBC (Auto) Vancomycin Trough Salicylates Acetaminophen Plasma/Serum Alcohol Crossmatch 12/16/19 12/17/19 12/17/19 23:43 05:28 12:47 WBC RBC Hgb Hct MCH RDW Plt Count Lymph % (Auto) [place] % (Auto) [place] # Baso # Seg Neutrophils % Seg Neuts % (Manual) Lymphocytes % (Manual) Monocytes % (Manual) Seg Neutrophils # Seg Neutrophils # Man Lymphocytes # (Manual) Monocytes # (Manual) Eosinophils # (Manual) Basophils # (Manual) PT INR APTT ABG pH ABG pO2 ABG HCO3 ABG O2 Saturation ABG Base Excess ABG Hemoglobin Oxyhemoglobin Sodium Potassium Chloride Carbon Dioxide BUN Creatinine Glucose POC Glucose 142 H 140 H 125 H Lactic Acid Calcium Ionized Calcium Phosphorus Magnesium Total Bilirubin AST ALT Alkaline Phosphatase Ammonia Total Creatine Kinase CK-MB (CK-2) CK-MB (CK-2) Rel Index Total Protein Albumin Urine WBC (Auto) Vancomycin Trough Salicylates Acetaminophen Plasma/Serum Alcohol Crossmatch 03/12/17/19 12/17/19 17:05 18:00 Unknown WBC RBC Hgb Hct MCH RDW Plt Count Lymph % (Auto) [place] % (Auto) [place] # Baso # Seg Neutrophils % Seg Neuts % (Manual) Lymphocytes % (Manual) Monocytes % (Manual) Seg Neutrophils # Seg Neutrophils # Man Lymphocytes # (Manual) Monocytes # (Manual) Eosinophils # (Manual) Basophils # (Manual) PT INR APTT ABG pH ABG pO2 68.1 L ABG HCO3 ABG O2 Saturation 93.7 L ABG Base Excess ABG Hemoglobin 5.0 L Oxyhemoglobin 91.7 L Sodium Potassium Chloride Carbon Dioxide BUN Creatinine Glucose POC Glucose 140 H Lactic Acid Calcium Ionized Calcium Phosphorus Magnesium Total Bilirubin AST ALT Alkaline Phosphatase Ammonia Total Creatine Kinase CK-MB (CK-2) CK-MB (CK-2) Rel Index Total Protein Albumin Urine WBC (Auto) Vancomycin Trough Salicylates Acetaminophen Plasma/Serum Alcohol Crossmatch 12/18/19 12/18/19 12/18/19 00:16 04:53 04:53 WBC 28.6 H RBC 2.27 L Hgb 6.3 L Hct 19.5 L* MCH RDW 20.0 H Plt Count 497 H Lymph % (Auto) [place] % (Auto) [place] # Baso # Seg Neutrophils % Seg Neuts % (Manual) Lymphocytes % (Manual) Monocytes % (Manual) Seg Neutrophils # Seg Neutrophils # Man Lymphocytes # (Manual) Monocytes # (Manual) Eosinophils # (Manual) Basophils # (Manual) PT INR APTT ABG pH ABG pO2 ABG HCO3 ABG O2 Saturation ABG Base Excess ABG Hemoglobin Oxyhemoglobin Sodium Potassium Chloride 107.9 H Carbon Dioxide 20 L BUN 27 H Creatinine 0.6 L Glucose 116 H POC Glucose 123 H Lactic Acid Calcium Ionized Calcium Phosphorus Magnesium Total Bilirubin AST ALT Alkaline Phosphatase Ammonia Total Creatine Kinase CK-MB (CK-2) CK-MB (CK-2) Rel Index Total Protein Albumin Urine WBC (Auto) Vancomycin Trough Salicylates Acetaminophen Plasma/Serum Alcohol Crossmatch 12/18/19 12/18/19 12/18/19 06:38 11:22 12:08 WBC RBC Hgb Hct MCH RDW Plt Count Lymph % (Auto) [place] % (Auto) [place] # Baso # Seg Neutrophils % Seg Neuts % (Manual) Lymphocytes % (Manual) Monocytes % (Manual) Seg Neutrophils # Seg Neutrophils # Man Lymphocytes # (Manual) Monocytes # (Manual) Eosinophils # (Manual) Basophils # (Manual) PT INR APTT ABG pH ABG pO2 ABG HCO3 ABG O2 Saturation ABG Base Excess ABG Hemoglobin Oxyhemoglobin Sodium Potassium Chloride Carbon Dioxide BUN Creatinine Glucose POC Glucose 120 H 127 H Lactic Acid Calcium Ionized Calcium Phosphorus Magnesium Total Bilirubin AST ALT Alkaline Phosphatase Ammonia Total Creatine Kinase CK-MB (CK-2) CK-MB (CK-2) Rel Index Total Protein Albumin Urine WBC (Auto) Vancomycin Trough Salicylates Acetaminophen Plasma/Serum Alcohol Crossmatch See Detail 12/18/19 12/18/19 12/18/19 14:05 17:49 23:53 WBC RBC Hgb Hct MCH RDW Plt Count Lymph % (Auto) [place] % (Auto) [place] # Baso # Seg Neutrophils % Seg Neuts % (Manual) Lymphocytes % (Manual) Monocytes % (Manual) Seg Neutrophils # Seg Neutrophils # Man Lymphocytes # (Manual) Monocytes # (Manual) Eosinophils # (Manual) Basophils # (Manual) PT INR APTT ABG pH 7.267 L ABG pO2 69.8 L ABG HCO3 ABG O2 Saturation 88.4 L ABG Base Excess ABG Hemoglobin 7.1 L Oxyhemoglobin 86.4 L Sodium Potassium Chloride Carbon Dioxide BUN Creatinine Glucose POC Glucose 157 H 128 H Lactic Acid Calcium Ionized Calcium Phosphorus Magnesium Total Bilirubin AST ALT Alkaline Phosphatase Ammonia Total Creatine Kinase CK-MB (CK-2) CK-MB (CK-2) Rel Index Total Protein Albumin Urine WBC (Auto) Vancomycin Trough Salicylates Acetaminophen Plasma/Serum Alcohol Crossmatch 12/19/19 12/19/19 12/19/19 03:37 03:37 05:25 WBC 31.3 H RBC 2.60 L Hgb 7.6 L Hct 23.0 L MCH RDW 19.4 H Plt Count 530 H Lymph % (Auto) [place] % (Auto) [place] # Baso # Seg Neutrophils % Seg Neuts % (Manual) Lymphocytes % (Manual) Monocytes % (Manual) Seg Neutrophils # Seg Neutrophils # Man Lymphocytes # (Manual) Monocytes # (Manual) Eosinophils # (Manual) Basophils # (Manual) PT INR APTT ABG pH ABG pO2 ABG HCO3 ABG O2 Saturation ABG Base Excess ABG Hemoglobin Oxyhemoglobin Sodium Potassium Chloride Carbon Dioxide 18 L BUN 36 H Creatinine Glucose 111 H POC Glucose 123 H Lactic Acid Calcium Ionized Calcium Phosphorus Magnesium Total Bilirubin AST ALT Alkaline Phosphatase Ammonia Total Creatine Kinase CK-MB (CK-2) CK-MB (CK-2) Rel Index Total Protein Albumin Urine WBC (Auto) Vancomycin Trough Salicylates Acetaminophen Plasma/Serum Alcohol Crossmatch 12/19/19 12/19/19 12/20/19 12:59 18:33 00:00 WBC RBC Hgb Hct MCH RDW Plt Count Lymph % (Auto) [place] % (Auto) [place] # Baso # Seg Neutrophils % Seg Neuts % (Manual) Lymphocytes % (Manual) Monocytes % (Manual) Seg Neutrophils # Seg Neutrophils # Man Lymphocytes # (Manual) Monocytes # (Manual) Eosinophils # (Manual) Basophils # (Manual) PT INR APTT ABG pH ABG pO2 ABG HCO3 ABG O2 Saturation ABG Base Excess ABG Hemoglobin Oxyhemoglobin Sodium Potassium Chloride Carbon Dioxide BUN Creatinine Glucose POC Glucose 130 H 118 H 135 H Lactic Acid Calcium Ionized Calcium Phosphorus Magnesium Total Bilirubin AST ALT Alkaline Phosphatase Ammonia Total Creatine Kinase CK-MB (CK-2) CK-MB (CK-2) Rel Index Total Protein Albumin Urine WBC (Auto) Vancomycin Trough Salicylates Acetaminophen Plasma/Serum Alcohol Crossmatch 12/20/19 12/20/19 12/20/19 05:46 12:31 18:07 WBC RBC Hgb Hct MCH RDW Plt Count Lymph % (Auto) [place] % (Auto) [place] # Baso # Seg Neutrophils % Seg Neuts % (Manual) Lymphocytes % (Manual) Monocytes % (Manual) Seg Neutrophils # Seg Neutrophils # Man Lymphocytes # (Manual) Monocytes # (Manual) Eosinophils # (Manual) Basophils # (Manual) PT INR APTT ABG pH ABG pO2 ABG HCO3 ABG O2 Saturation ABG Base Excess ABG Hemoglobin Oxyhemoglobin Sodium Potassium Chloride Carbon Dioxide BUN Creatinine Glucose POC Glucose 131 H 128 H 134 H Lactic Acid Calcium Ionized Calcium Phosphorus Magnesium Total Bilirubin AST ALT Alkaline Phosphatase Ammonia Total Creatine Kinase CK-MB (CK-2) CK-MB (CK-2) Rel Index Total Protein Albumin Urine WBC (Auto) Vancomycin Trough Salicylates Acetaminophen Plasma/Serum Alcohol Crossmatch 12/21/19 12/21/19 12/21/19 03:28 03:28 07:21 WBC 29.4 H RBC 2.30 L Hgb 6.8 L Hct 20.2 L MCH RDW 20.2 H Plt Count 746 H Lymph % (Auto) [place] % (Auto) [place] # Baso # Seg Neutrophils % Seg Neuts % (Manual) 85.0 H Lymphocytes % (Manual) 8.0 L Monocytes % (Manual) Seg Neutrophils # Seg Neutrophils # Man 25.0 H Lymphocytes # (Manual) Monocytes # (Manual) 1.5 H Eosinophils # (Manual) 0.6 H Basophils # (Manual) PT INR APTT ABG pH ABG pO2 ABG HCO3 ABG O2 Saturation ABG Base Excess ABG Hemoglobin Oxyhemoglobin Sodium Potassium Chloride Carbon Dioxide 17 L BUN 57 H Creatinine 1.4 H D Glucose POC Glucose 124 H Lactic Acid Calcium Ionized Calcium Phosphorus Magnesium Total Bilirubin AST ALT Alkaline Phosphatase Ammonia Total Creatine Kinase CK-MB (CK-2) CK-MB (CK-2) Rel Index Total Protein Albumin Urine WBC (Auto) Vancomycin Trough Salicylates Acetaminophen Plasma/Serum Alcohol Crossmatch 12/21/19 12/21/19 12/21/19 08:56 12:06 14:53 WBC RBC Hgb 7.2 L Hct 22.9 L MCH RDW Plt Count Lymph % (Auto) [place] % (Auto) [place] # Baso # Seg Neutrophils % Seg Neuts % (Manual) Lymphocytes % (Manual) Monocytes % (Manual) Seg Neutrophils # Seg Neutrophils # Man Lymphocytes # (Manual) Monocytes # (Manual) Eosinophils # (Manual) Basophils # (Manual) PT INR APTT ABG pH ABG pO2 ABG HCO3 ABG O2 Saturation ABG Base Excess ABG Hemoglobin Oxyhemoglobin Sodium Potassium Chloride Carbon Dioxide BUN Creatinine Glucose POC Glucose 116 H Lactic Acid Calcium Ionized Calcium Phosphorus Magnesium Total Bilirubin AST ALT Alkaline Phosphatase Ammonia Total Creatine Kinase CK-MB (CK-2) CK-MB (CK-2) Rel Index Total Protein Albumin Urine WBC (Auto) Vancomycin Trough 33.8 H Salicylates Acetaminophen Plasma/Serum Alcohol Crossmatch 12/21/19 12/21/19 12/21/19 14:54 17:27 23:49 WBC RBC Hgb Hct MCH RDW Plt Count Lymph % (Auto) [place] % (Auto) [place] # Baso # Seg Neutrophils % Seg Neuts % (Manual) Lymphocytes % (Manual) Monocytes % (Manual) Seg Neutrophils # Seg Neutrophils # Man Lymphocytes # (Manual) Monocytes # (Manual) Eosinophils # (Manual) Basophils # (Manual) PT INR APTT ABG pH ABG pO2 ABG HCO3 ABG O2 Saturation ABG Base Excess ABG Hemoglobin Oxyhemoglobin Sodium Potassium Chloride Carbon Dioxide BUN Creatinine Glucose POC Glucose 145 H 127 H Lactic Acid Calcium Ionized Calcium Phosphorus Magnesium Total Bilirubin AST ALT Alkaline Phosphatase Ammonia Total Creatine Kinase CK-MB (CK-2) CK-MB (CK-2) Rel Index Total Protein Albumin Urine WBC (Auto) Vancomycin Trough Salicylates Acetaminophen Plasma/Serum Alcohol Crossmatch See Detail 12/22/19 12/22/19 12/22/19 04:43 05:56 08:40 WBC RBC Hgb Hct MCH RDW Plt Count Lymph % (Auto) [place] % (Auto) [place] # Baso # Seg Neutrophils % Seg Neuts % (Manual) Lymphocytes % (Manual) Monocytes % (Manual) Seg Neutrophils # Seg Neutrophils # Man Lymphocytes # (Manual) Monocytes # (Manual) Eosinophils # (Manual) Basophils # (Manual) PT INR APTT ABG pH ABG pO2 75.6 L ABG HCO3 ABG O2 Saturation ABG Base Excess -2.6 L ABG Hemoglobin 6.8 L Oxyhemoglobin 94.6 L Sodium Potassium Chloride Carbon Dioxide 17 L BUN 60 H Creatinine 1.4 H Glucose 126 H POC Glucose 153 H Lactic Acid Calcium Ionized Calcium Phosphorus Magnesium Total Bilirubin AST ALT Alkaline Phosphatase Ammonia Total Creatine Kinase CK-MB (CK-2) CK-MB (CK-2) Rel Index Total Protein Albumin Urine WBC (Auto) Vancomycin Trough Salicylates Acetaminophen Plasma/Serum Alcohol Crossmatch 12/22/19 12/22/19 12/23/19 12:07 17:49 04:30 WBC 22.4 H RBC 2.68 L Hgb 7.6 L Hct 22.9 L MCH RDW 19.9 H Plt Count 998 H Lymph % (Auto) [place] % (Auto) [place] # Baso # Seg Neutrophils % Seg Neuts % (Manual) 88.0 H Lymphocytes % (Manual) 2.0 L Monocytes % (Manual) 9.0 H Seg Neutrophils # Seg Neutrophils # Man 19.7 H Lymphocytes # (Manual) 0.4 L Monocytes # (Manual) 2.0 H Eosinophils # (Manual) Basophils # (Manual) PT INR APTT ABG pH ABG pO2 ABG HCO3 ABG O2 Saturation ABG Base Excess ABG Hemoglobin Oxyhemoglobin Sodium Potassium Chloride Carbon Dioxide BUN Creatinine Glucose POC Glucose 140 H 116 H Lactic Acid Calcium Ionized Calcium Phosphorus Magnesium Total Bilirubin AST ALT Alkaline Phosphatase Ammonia Total Creatine Kinase CK-MB (CK-2) CK-MB (CK-2) Rel Index Total Protein Albumin Urine WBC (Auto) Vancomycin Trough Salicylates Acetaminophen Plasma/Serum Alcohol Crossmatch 12/23/19 12/23/19 12/23/19 04:30 12:00 18:06 WBC RBC Hgb Hct MCH RDW Plt Count Lymph % (Auto) [place] % (Auto) [place] # Baso # Seg Neutrophils % Seg Neuts % (Manual) Lymphocytes % (Manual) Monocytes % (Manual) Seg Neutrophils # Seg Neutrophils # Man Lymphocytes # (Manual) Monocytes # (Manual) Eosinophils # (Manual) Basophils # (Manual) PT INR APTT ABG pH ABG pO2 ABG HCO3 ABG O2 Saturation ABG Base Excess ABG Hemoglobin Oxyhemoglobin Sodium Potassium 5.2 H Chloride Carbon Dioxide 21 L BUN 69 H Creatinine 1.5 H Glucose 117 H POC Glucose 128 H 138 H Lactic Acid Calcium Ionized Calcium Phosphorus Magnesium Total Bilirubin AST ALT Alkaline Phosphatase Ammonia Total Creatine Kinase CK-MB (CK-2) CK-MB (CK-2) Rel Index Total Protein Albumin Urine WBC (Auto) Vancomycin Trough Salicylates Acetaminophen Plasma/Serum Alcohol Crossmatch 12/23/19 12/24/19 12/24/19 23:46 04:31 05:08 WBC RBC Hgb Hct MCH RDW Plt Count Lymph % (Auto) [place] % (Auto) [place] # Baso # Seg Neutrophils % Seg Neuts % (Manual) Lymphocytes % (Manual) Monocytes % (Manual) Seg Neutrophils # Seg Neutrophils # Man Lymphocytes # (Manual) Monocytes # (Manual) Eosinophils # (Manual) Basophils # (Manual) PT INR APTT ABG pH ABG pO2 ABG HCO3 ABG O2 Saturation ABG Base Excess ABG Hemoglobin Oxyhemoglobin Sodium Potassium 5.3 H Chloride 107.6 H Carbon Dioxide 20 L BUN 72 H Creatinine 1.6 H Glucose 120 H POC Glucose 120 H 140 H Lactic Acid Calcium Ionized Calcium Phosphorus Magnesium Total Bilirubin AST ALT Alkaline Phosphatase Ammonia Total Creatine Kinase CK-MB (CK-2) CK-MB (CK-2) Rel Index Total Protein Albumin Urine WBC (Auto) Vancomycin Trough Salicylates Acetaminophen Plasma/Serum Alcohol Crossmatch 12/24/19 12/24/19 12/25/19 11:58 17:49 03:47 WBC 36.2 H RBC 2.92 L Hgb 8.4 L Hct 26.1 L MCH RDW 20.2 H Plt Count 942 H Lymph % (Auto) [place] % (Auto) [place] # Baso # Seg Neutrophils % Seg Neuts % (Manual) 97.5 H Lymphocytes % (Manual) 1.0 L Monocytes % (Manual) Seg Neutrophils # Seg Neutrophils # Man 35.3 H Lymphocytes # (Manual) 0.4 L Monocytes # (Manual) Eosinophils # (Manual) Basophils # (Manual) PT INR APTT ABG pH ABG pO2 ABG HCO3 ABG O2 Saturation ABG Base Excess ABG Hemoglobin Oxyhemoglobin Sodium Potassium Chloride Carbon Dioxide BUN Creatinine Glucose POC Glucose 146 H 131 H Lactic Acid Calcium Ionized Calcium Phosphorus Magnesium Total Bilirubin AST ALT Alkaline Phosphatase Ammonia Total Creatine Kinase CK-MB (CK-2) CK-MB (CK-2) Rel Index Total Protein Albumin Urine WBC (Auto) Vancomycin Trough Salicylates Acetaminophen Plasma/Serum Alcohol Crossmatch 12/25/19 12/25/19 12/25/19 03:47 05:30 12:23 WBC RBC Hgb Hct MCH RDW Plt Count Lymph % (Auto) [place] % (Auto) [place] # Baso # Seg Neutrophils % Seg Neuts % (Manual) Lymphocytes % (Manual) Monocytes % (Manual) Seg Neutrophils # Seg Neutrophils # Man Lymphocytes # (Manual) Monocytes # (Manual) Eosinophils # (Manual) Basophils # (Manual) PT INR APTT ABG pH ABG pO2 ABG HCO3 ABG O2 Saturation ABG Base Excess ABG Hemoglobin Oxyhemoglobin Sodium Potassium Chloride Carbon Dioxide 15 L BUN 70 H Creatinine 1.7 H Glucose 153 H POC Glucose 169 H 135 H Lactic Acid Calcium Ionized Calcium Phosphorus Magnesium Total Bilirubin AST ALT Alkaline Phosphatase Ammonia Total Creatine Kinase CK-MB (CK-2) CK-MB (CK-2) Rel Index Total Protein Albumin Urine WBC (Auto) Vancomycin Trough Salicylates Acetaminophen Plasma/Serum Alcohol Crossmatch 12/25/19 12/25/19 12/26/19 17:37 23:29 09:47 WBC 22.1 H RBC 2.83 L Hgb 7.9 L Hct 25.5 L MCH RDW 20.0 H Plt Count 894 H Lymph % (Auto) [place] % (Auto) [place] # Baso # Seg Neutrophils % Seg Neuts % (Manual) Lymphocytes % (Manual) Monocytes % (Manual) Seg Neutrophils # Seg Neutrophils # Man Lymphocytes # (Manual) Monocytes # (Manual) Eosinophils # (Manual) Basophils # (Manual) PT INR APTT ABG pH ABG pO2 ABG HCO3 ABG O2 Saturation ABG Base Excess ABG Hemoglobin Oxyhemoglobin Sodium Potassium Chloride Carbon Dioxide BUN Creatinine Glucose POC Glucose 120 H 140 H Lactic Acid Calcium Ionized Calcium Phosphorus Magnesium Total Bilirubin AST ALT Alkaline Phosphatase Ammonia Total Creatine Kinase CK-MB (CK-2) CK-MB (CK-2) Rel Index Total Protein Albumin Urine WBC (Auto) Vancomycin Trough Salicylates Acetaminophen Plasma/Serum Alcohol Crossmatch 12/26/19 12/26/19 12/26/19 09:47 11:46 17:52 WBC RBC Hgb Hct MCH RDW Plt Count Lymph % (Auto) [place] % (Auto) [place] # Baso # Seg Neutrophils % Seg Neuts % (Manual) Lymphocytes % (Manual) Monocytes % (Manual) Seg Neutrophils # Seg Neutrophils # Man Lymphocytes # (Manual) Monocytes # (Manual) Eosinophils # (Manual) Basophils # (Manual) PT INR APTT ABG pH ABG pO2 ABG HCO3 ABG O2 Saturation ABG Base Excess ABG Hemoglobin Oxyhemoglobin Sodium Potassium Chloride Carbon Dioxide 18 L BUN 65 H Creatinine 1.4 H Glucose 132 H POC Glucose 110 H 145 H Lactic Acid Calcium Ionized Calcium Phosphorus Magnesium Total Bilirubin AST ALT Alkaline Phosphatase Ammonia Total Creatine Kinase CK-MB (CK-2) CK-MB (CK-2) Rel Index Total Protein Albumin Urine WBC (Auto) Vancomycin Trough Salicylates Acetaminophen Plasma/Serum Alcohol Crossmatch 12/27/19 12/27/19 12/27/19 00:01 03:42 03:42 WBC 18.0 H RBC 2.86 L Hgb 8.0 L Hct 25.2 L MCH RDW 19.2 H Plt Count 873 H Lymph % (Auto) 8.4 L [place] % (Auto) 7.5 H [place] # 1.4 H Baso # 0.2 H Seg Neutrophils % 82.2 H Seg Neuts % (Manual) Lymphocytes % (Manual) Monocytes % (Manual) Seg Neutrophils # 14.8 H Seg Neutrophils # Man Lymphocytes # (Manual) Monocytes # (Manual) Eosinophils # (Manual) Basophils # (Manual) PT INR APTT ABG pH ABG pO2 ABG HCO3 ABG O2 Saturation ABG Base Excess ABG Hemoglobin Oxyhemoglobin Sodium Potassium Chloride Carbon Dioxide BUN 73 H Creatinine 1.4 H Glucose 119 H POC Glucose 124 H Lactic Acid Calcium Ionized Calcium Phosphorus Magnesium Total Bilirubin AST ALT Alkaline Phosphatase Ammonia Total Creatine Kinase CK-MB (CK-2) CK-MB (CK-2) Rel Index Total Protein Albumin Urine WBC (Auto) Vancomycin Trough Salicylates Acetaminophen Plasma/Serum Alcohol Crossmatch 12/27/19 12/27/19 12/27/19 05:45 11:45 17:29 WBC RBC Hgb Hct MCH RDW Plt Count Lymph % (Auto) [place] % (Auto) [place] # Baso # Seg Neutrophils % Seg Neuts % (Manual) Lymphocytes % (Manual) Monocytes % (Manual) Seg Neutrophils # Seg Neutrophils # Man Lymphocytes # (Manual) Monocytes # (Manual) Eosinophils # (Manual) Basophils # (Manual) PT INR APTT ABG pH ABG pO2 ABG HCO3 ABG O2 Saturation ABG Base Excess ABG Hemoglobin Oxyhemoglobin Sodium Potassium Chloride Carbon Dioxide BUN Creatinine Glucose POC Glucose 131 H 123 H 134 H Lactic Acid Calcium Ionized Calcium Phosphorus Magnesium Total Bilirubin AST ALT Alkaline Phosphatase Ammonia Total Creatine Kinase CK-MB (CK-2) CK-MB (CK-2) Rel Index Total Protein Albumin Urine WBC (Auto) Vancomycin Trough Salicylates Acetaminophen Plasma/Serum Alcohol Crossmatch 12/28/19 12/28/19 12/28/19 00:12 05:14 11:53 WBC RBC Hgb Hct MCH RDW Plt Count Lymph % (Auto) [place] % (Auto) [place] # Baso # Seg Neutrophils % Seg Neuts % (Manual) Lymphocytes % (Manual) Monocytes % (Manual) Seg Neutrophils # Seg Neutrophils # Man Lymphocytes # (Manual) Monocytes # (Manual) Eosinophils # (Manual) Basophils # (Manual) PT INR APTT ABG pH ABG pO2 ABG HCO3 ABG O2 Saturation ABG Base Excess ABG Hemoglobin Oxyhemoglobin Sodium Potassium Chloride Carbon Dioxide BUN Creatinine Glucose POC Glucose 138 H 130 H 146 H Lactic Acid Calcium Ionized Calcium Phosphorus Magnesium Total Bilirubin AST ALT Alkaline Phosphatase Ammonia Total Creatine Kinase CK-MB (CK-2) CK-MB (CK-2) Rel Index Total Protein Albumin Urine WBC (Auto) Vancomycin Trough Salicylates Acetaminophen Plasma/Serum Alcohol Crossmatch 12/28/19 12/29/19 12/29/19 17:39 00:01 18:11 WBC RBC Hgb Hct MCH RDW Plt Count Lymph % (Auto) [place] % (Auto) [place] # Baso # Seg Neutrophils % Seg Neuts % (Manual) Lymphocytes % (Manual) Monocytes % (Manual) Seg Neutrophils # Seg Neutrophils # Man Lymphocytes # (Manual) Monocytes # (Manual) Eosinophils # (Manual) Basophils # (Manual) PT INR APTT ABG pH ABG pO2 ABG HCO3 ABG O2 Saturation ABG Base Excess ABG Hemoglobin Oxyhemoglobin Sodium Potassium Chloride Carbon Dioxide BUN Creatinine Glucose POC Glucose 117 H 139 H 130 H Lactic Acid Calcium Ionized Calcium Phosphorus Magnesium Total Bilirubin AST ALT Alkaline Phosphatase Ammonia Total Creatine Kinase CK-MB (CK-2) CK-MB (CK-2) Rel Index Total Protein Albumin Urine WBC (Auto) Vancomycin Trough Salicylates Acetaminophen Plasma/Serum Alcohol Crossmatch 12/29/19 12/30/19 12/30/19 23:09 00:02 01:06 WBC 16.7 H RBC 2.91 L Hgb 8.2 L Hct 25.4 L MCH RDW 18.7 H Plt Count 708 H Lymph % (Auto) 9.4 L [place] % (Auto) [place] # 0.9 H Baso # Seg Neutrophils % 83.5 H Seg Neuts % (Manual) Lymphocytes % (Manual) Monocytes % (Manual) Seg Neutrophils # 14.0 H Seg Neutrophils # Man Lymphocytes # (Manual) Monocytes # (Manual) Eosinophils # (Manual) Basophils # (Manual) PT INR APTT ABG pH ABG pO2 ABG HCO3 ABG O2 Saturation ABG Base Excess ABG Hemoglobin Oxyhemoglobin Sodium Potassium Chloride Carbon Dioxide BUN Creatinine Glucose POC Glucose 120 H 114 H Lactic Acid Calcium Ionized Calcium Phosphorus Magnesium Total Bilirubin AST ALT Alkaline Phosphatase Ammonia Total Creatine Kinase CK-MB (CK-2) CK-MB (CK-2) Rel Index Total Protein Albumin Urine WBC (Auto) Vancomycin Trough Salicylates Acetaminophen Plasma/Serum Alcohol Crossmatch 12/30/19 12/30/19 12/30/19 01:06 04:23 05:18 WBC RBC Hgb Hct MCH RDW Plt Count Lymph % (Auto) [place] % (Auto) [place] # Baso # Seg Neutrophils % Seg Neuts % (Manual) Lymphocytes % (Manual) Monocytes % (Manual) Seg Neutrophils # Seg Neutrophils # Man Lymphocytes # (Manual) Monocytes # (Manual) Eosinophils # (Manual) Basophils # (Manual) PT INR APTT ABG pH ABG pO2 ABG HCO3 ABG O2 Saturation ABG Base Excess ABG Hemoglobin 8.3 L Oxyhemoglobin Sodium Potassium Chloride Carbon Dioxide BUN 70 H Creatinine Glucose 122 H POC Glucose 130 H Lactic Acid Calcium Ionized Calcium Phosphorus Magnesium Total Bilirubin AST ALT Alkaline Phosphatase Ammonia Total Creatine Kinase CK-MB (CK-2) CK-MB (CK-2) Rel Index Total Protein Albumin Urine WBC (Auto) Vancomycin Trough Salicylates Acetaminophen Plasma/Serum Alcohol Crossmatch 12/30/19 12/30/19 12/30/19 05:40 12:17 17:43 WBC RBC Hgb Hct MCH RDW Plt Count Lymph % (Auto) [place] % (Auto) [place] # Baso # Seg Neutrophils % Seg Neuts % (Manual) Lymphocytes % (Manual) Monocytes % (Manual) Seg Neutrophils # Seg Neutrophils # Man Lymphocytes # (Manual) Monocytes # (Manual) Eosinophils # (Manual) Basophils # (Manual) PT INR APTT ABG pH ABG pO2 ABG HCO3 ABG O2 Saturation ABG Base Excess ABG Hemoglobin Oxyhemoglobin Sodium Potassium Chloride Carbon Dioxide BUN Creatinine Glucose POC Glucose 135 H 132 H 118 H Lactic Acid Calcium Ionized Calcium Phosphorus Magnesium Total Bilirubin AST ALT Alkaline Phosphatase Ammonia Total Creatine Kinase CK-MB (CK-2) CK-MB (CK-2) Rel Index Total Protein Albumin Urine WBC (Auto) Vancomycin Trough Salicylates Acetaminophen Plasma/Serum Alcohol Crossmatch 12/30/19 12/31/19 12/31/19 23:29 05:19 17:50 WBC RBC Hgb Hct MCH RDW Plt Count Lymph % (Auto) [place] % (Auto) [place] # Baso # Seg Neutrophils % Seg Neuts % (Manual) Lymphocytes % (Manual) Monocytes % (Manual) Seg Neutrophils # Seg Neutrophils # Man Lymphocytes # (Manual) Monocytes # (Manual) Eosinophils # (Manual) Basophils # (Manual) PT INR APTT ABG pH ABG pO2 ABG HCO3 ABG O2 Saturation ABG Base Excess ABG Hemoglobin Oxyhemoglobin Sodium Potassium Chloride Carbon Dioxide BUN Creatinine Glucose POC Glucose 114 H 109 H 116 H Lactic Acid Calcium Ionized Calcium Phosphorus Magnesium Total Bilirubin AST ALT Alkaline Phosphatase Ammonia Total Creatine Kinase CK-MB (CK-2) CK-MB (CK-2) Rel Index Total Protein Albumin Urine WBC (Auto) Vancomycin Trough Salicylates Acetaminophen Plasma/Serum Alcohol Crossmatch 01/01/20 01/01/20 01/01/20 00:10 05:19 12:02 WBC RBC Hgb Hct MCH RDW Plt Count Lymph % (Auto) [place] % (Auto) [place] # Baso # Seg Neutrophils % Seg Neuts % (Manual) Lymphocytes % (Manual) Monocytes % (Manual) Seg Neutrophils # Seg Neutrophils # Man Lymphocytes # (Manual) Monocytes # (Manual) Eosinophils # (Manual) Basophils # (Manual) PT INR APTT ABG pH ABG pO2 ABG HCO3 ABG O2 Saturation ABG Base Excess ABG Hemoglobin Oxyhemoglobin Sodium Potassium Chloride Carbon Dioxide BUN Creatinine Glucose POC Glucose 131 H 122 H 136 H Lactic Acid Calcium Ionized Calcium Phosphorus Magnesium Total Bilirubin AST ALT Alkaline Phosphatase Ammonia Total Creatine Kinase CK-MB (CK-2) CK-MB (CK-2) Rel Index Total Protein Albumin Urine WBC (Auto) Vancomycin Trough Salicylates Acetaminophen Plasma/Serum Alcohol Crossmatch 01/02/20 01/02/20 01/02/20 00:24 05:36 11:41 WBC RBC Hgb Hct MCH RDW Plt Count Lymph % (Auto) [place] % (Auto) [place] # Baso # Seg Neutrophils % Seg Neuts % (Manual) Lymphocytes % (Manual) Monocytes % (Manual) Seg Neutrophils # Seg Neutrophils # Man Lymphocytes # (Manual) Monocytes # (Manual) Eosinophils # (Manual) Basophils # (Manual) PT INR APTT ABG pH ABG pO2 ABG HCO3 ABG O2 Saturation ABG Base Excess ABG Hemoglobin Oxyhemoglobin Sodium Potassium Chloride Carbon Dioxide BUN Creatinine Glucose POC Glucose 119 H 109 H 125 H Lactic Acid Calcium Ionized Calcium Phosphorus Magnesium Total Bilirubin AST ALT Alkaline Phosphatase Ammonia Total Creatine Kinase CK-MB (CK-2) CK-MB (CK-2) Rel Index Total Protein Albumin Urine WBC (Auto) Vancomycin Trough Salicylates Acetaminophen Plasma/Serum Alcohol Crossmatch 01/02/20 01/03/20 01/03/20 17:49 05:29 12:13 WBC RBC Hgb Hct MCH RDW Plt Count Lymph % (Auto) [place] % (Auto) [place] # Baso # Seg Neutrophils % Seg Neuts % (Manual) Lymphocytes % (Manual) Monocytes % (Manual) Seg Neutrophils # Seg Neutrophils # Man Lymphocytes # (Manual) Monocytes # (Manual) Eosinophils # (Manual) Basophils # (Manual) PT INR APTT ABG pH ABG pO2 ABG HCO3 ABG O2 Saturation ABG Base Excess ABG Hemoglobin Oxyhemoglobin Sodium Potassium Chloride Carbon Dioxide BUN Creatinine Glucose POC Glucose 130 H 132 H 113 H Lactic Acid Calcium Ionized Calcium Phosphorus Magnesium Total Bilirubin AST ALT Alkaline Phosphatase Ammonia Total Creatine Kinase CK-MB (CK-2) CK-MB (CK-2) Rel Index Total Protein Albumin Urine WBC (Auto) Vancomycin Trough Salicylates Acetaminophen Plasma/Serum Alcohol Crossmatch 01/03/20 01/04/20 01/04/20 17:32 00:19 05:26 WBC RBC Hgb Hct MCH RDW Plt Count Lymph % (Auto) [place] % (Auto) [place] # Baso # Seg Neutrophils % Seg Neuts % (Manual) Lymphocytes % (Manual) Monocytes % (Manual) Seg Neutrophils # Seg Neutrophils # Man Lymphocytes # (Manual) Monocytes # (Manual) Eosinophils # (Manual) Basophils # (Manual) PT INR APTT ABG pH ABG pO2 ABG HCO3 ABG O2 Saturation ABG Base Excess ABG Hemoglobin Oxyhemoglobin Sodium Potassium Chloride Carbon Dioxide BUN Creatinine Glucose POC Glucose 127 H 141 H 129 H Lactic Acid Calcium Ionized Calcium Phosphorus Magnesium Total Bilirubin AST ALT Alkaline Phosphatase Ammonia Total Creatine Kinase CK-MB (CK-2) CK-MB (CK-2) Rel Index Total Protein Albumin Urine WBC (Auto) Vancomycin Trough Salicylates Acetaminophen Plasma/Serum Alcohol Crossmatch Allied health notes reviewed: RT
--- NOTE | 2020-01-04 14:17 | Progress Note ---
Assessment and Plan / Anoxic brain injury: suspected CT head: No acute abnormality. neurology consult placed, EEG ordered showed Generalized slowing. No seizures or epileptiform activity. Per neurology : Patient found to have intact corneal/VOR/cough reflexes, and is withdrawing lower extremities, therefore patient is not found to be brain . However, given that patient had an out of hospital cardiac arrest, [facility], the likelihood of meaningful neurological recovery is somewhat low. -Patient now opening her eyes but does not follow any command or move any extremities /Acute Respiratory failure -s/p intubation, s/p trach and PEG on 12/12 with mechanical ventilation - CTA was done and negative for PE, - Echo quality is poor, showed diastolic dysfunction - continue ICU monitoring - wean OFF vent/O2 as tolerated /Anemia, microcytic -Continue to hold heparin, transfused 2 units of packed RBC -ordered stool for occult blood - pending /Acute metabolic encephalopathy/toxic encephalopathy due to the above - cont supportive care /Hyperammonemia - likely from liver disease related to EtOH abuse - Patient had elevated ammonia level and treated with lactulose /Metabolic Acidosis -Alcohol ketoacidosis vs hypoprofusion -Continue to monitor /ELevated LFTs, stable now - due to ischemic hepatitis. /Leucocytosis with sepsis - Source MRSA bacteremia and MSSA pneumonia. UA showed pyuria. RUQ US showed no ascites. - Repeat TTE negative for vegetation. Completed 7 days of Ceftriaxone on 11/29/2019. -Treated with Abx vancomycin 1 gm IV q 12 hour total 2 week till 12/30/2019 /MSSA pneumonia: Status post vancomycin till 12/30/2019 /ALcohol USe Disorder - given ongoing Alcohol use almost daily, s/p IV Thiamine - monitor /Severe hypokalemia -Repleted /Seizure disorder: treat with Keppra /H. Influenzae, tracheobronchitis, treated with abx DNR, Very poor prognosis The high probability of a clinically significant, sudden or life threatening deterioration of the [neurology,respiratory] system(s) required my full and direct attention, intervention and personal management. The aggregate critical care time was [32] minutes. This time is in addition to time spent performing reported procedures but includes the following: [x] Data Review and interpretation [x] Patient assessment and monitoring of vital signs [x] Documentation [x] Medication orders and management Disposition: prognosis poor. Family okay for DNR, placement pending 12/31/19: still intubated via trach, no restraints needed, FiO2 30%, PEEP 6, Difficulty getting to Hospice, mother wants to kept updated. Patient has 4 kids, 2 sons in care home, 1 son is transgender and not involved per mother; Daughter is Deborah who is NOK 01/01/20: Still intubated, but patient opening her eyes but does not follow any command. Unable to set up inpatient hospice 01/01 pending placement, patient is self funded 01/02 pending placement, patient is self funded 01/03 pending placement, patient is self funded. still on vent. updated patient's mother Brief History: 54-year-old female with a past medical history of Hypertension, Depression, Tobacco use Disorder, Alcohol use Disorder as confirmed by Daughter and pt's mother presents to the hospital status post cardiac arrest at home. EMS found pt in [place]. They were unable to intubate patient with a ET tube because she was clenching down therefore Joe airway placed. Per the ED physician who evaluated pt, Patient presented with a pulse, intermittent respirations, and bagging support via Joe airway with O2 sat of 100%. Accu-Chek of 71 obtained by EMS. She was intubated in the ER and called for admission. Following admission patient was diagnosed with anoxic brain injury, sepsis with MRSA bacteremia and MSSA pneumonia, alcoholic liver disease. Family member wished for full code, patient currently getting treated with IV antibiotics for sepsis, status post trach and PEG on 12/13/19. Subjective Date of service: 01/04/20 Principal diagnosis: Ac cardiopulmonary arrest; Ac hypoxemic resp failure; Acute encephalopathy Interval history: Patient seen and examined remained on mechanical ventilation with trach, can open her eyes patient now DNR Discussed with RN at bedside, discussed with employment case manager for disposition planning Tolerating tube feeding with PEG tube, needs placement/hospice - uninsured PUI?: No COVID19: Negative Objective - Exam Narrative Exam: General appearance: Present: other (on vent, elderly female, open eyes) - EENT Eyes: no scleral icterus, no conjunctival injection, pupil not reactive ENT: clear oral mucosa, dentition normal, no oropharyngeal erythema Ears: bilateral: normal - Neck Neck: trach on place - Respiratory Respiratory effort: other (on vent) Respiratory: bilateral: rales - Cardiovascular Rhythm: regular Heart Sounds: Present: S1 & S2. Absent: gallop, rub Extremities: pulses intact, No edema, normal color - Gastrointestinal General gastrointestinal: Present: soft, non-tender, non-distended, normal bowel sounds - Integumentary Integumentary: clear, warm, dry - Musculoskeletal Musculoskeletal: does not respond to commend - Neurologic Neurologic: other (intubated with trach and 2+ reflexes throughout). Does not follow commands or move extremities - Psychiatric Psychiatric: no appropriate mood/affect, no intact judgment & insight, no memory intact - Constitutional Vitals: Vital Signs - 12hr 01/04/20 01/04/20 01/04/20 03:00 03:07 04:00 Temperature 98.8 F Pulse Rate 107 H 103 H Pulse Rate [ 102 H From Monitor] Pulse Rate [ 102 H Right Dorsalis Pedis] Respiratory 27 H 29 H Rate Blood Pressure 139/91 145/91 O2 Sat by Pulse 100 100 Oximetry 01/04/20 01/04/20 01/04/20 04:31 05:00 06:00 Temperature Pulse Rate 102 H 105 H 102 H Pulse Rate [ From Monitor] Pulse Rate [ Right Dorsalis Pedis] Respiratory 18 18 Rate Blood Pressure 145/91 135/85 130/81 O2 Sat by Pulse 100 100 100 Oximetry 01/04/20 01/04/20 01/04/20 07:00 08:00 08:18 Temperature 98.7 F Pulse Rate 109 H 108 H Pulse Rate [ 108 H From Monitor] Pulse Rate [ Right Dorsalis Pedis] Respiratory 14 20 Rate Blood Pressure 117/86 132/88 O2 Sat by Pulse 100 100 100 Oximetry 01/04/20 01/04/20 09:00 10:00 Temperature Pulse Rate 105 H 145 H Pulse Rate [ 145 H From Monitor] Pulse Rate [ Right Dorsalis Pedis] Respiratory 32 H 36 H Rate Blood Pressure 145/91 144/95 O2 Sat by Pulse 100 90 Oximetry - Labs CBC & Chem 7: 12/30/19 01:06 12/30/19 01:06 Labs: Abnormal lab results 01/03/20 01/03/20 01/04/20 Range/Units 12:13 17:32 00:19 POC Glucose 113 H 127 H 141 H (70-105) 01/04/20 Range/Units 05:26 POC Glucose 129 H (70-105)
[2020-01-04] MEDS: QUEtiapine 100 MG TAB PO SCH (21:00)
[2020-01-05] MEDS: LANSOPRAZOLE 30 MG SOLUTAB FEEDTUBE SCH (09:01)
[2020-01-05] MEDS: GLYCOPYRROLATE 1 MG TAB PO SCH ×3 (09:01→20:00)
[2020-01-05] MEDS: SERTRALINE 50 MG TAB PO SCH (09:01)
[2020-01-05] MEDS: levETIRAcetam 500 MG/5 ML ORAL LIQD PO SCH ×2 (09:02→21:17)
[2020-01-05] MEDS: hydrOXYzine PAMOATE 25 MG CAP PO SCH ×2 (09:02→21:16)
[2020-01-05] MEDS: QUEtiapine 200 MG TAB PO SCH (09:02)
[2020-01-05] MEDS: MIRTAZAPINE 30 MG TAB PO SCH (09:02)
[2020-01-05] MEDS: TAMSULOSIN 0.4 MG CAP PO SCH (09:02)
--- NOTE | 2020-01-05 15:09 | Progress Note ---
Assessment and Plan Acute cardiopulmonary arrest with ROSC Acute hypoxemic respiratory failure on MVS Acute metabolic-toxic encephalopathy Metabolic acidosis/alcoholic acidosis/Lactic acidosis Ischemic hepatitis Leucocytosis with lactic acidosis Tobacco use disorder ALcohol use Disorder Hypokalemia High grade fevers - RT asked to begin T-piece trials - get ABG after 2 hours - continue to rest on AC qhs for now - no new issues; continue care as below otherwise - repeat CXR prn at this point - continue daily SAT's and assessment for readiness for SBT (For PSV trial today) - Continue to wean supplemental oxygen for target O2 sat's > 90% - continue to rest on AC mode qhs - VAP bundle addressed (continue aspiration precautions, HOB > 40) - continue bronchodilators with routine trach care and pulmonary hygiene per RT - continue Seroquel to see if aqids weaning as ventiolation is adequate and perhaps tachypnea on PSV mode has a neural component - continue Antibiotics per ID recommendations; de-escalate based on HILARIO /sensi tivities / clinical progress - continue Seroquel for tentative delirium and to spare IV sedation - continue Reglan for G.I. motility - Continue VTE and Stress ulcer prophylaxis - Continue enteric nutritional support - Monitor glycemic control, with target blood glucose 140-180 mg/dL while critically ill (Avoid hypoglycemia) - ABG and CXR prn - Continue to avoid nephrotoxins, adjust all medications fro GFR and CrCL - Continue to avoid benzodiazepines , as much as possible, to reduce the possibility of delirium - Continue prn analgesia per CPOT score - Continue to maintain of sleep-wake cycle, avoid delirium - PT/OT/ROM exercises- awaiting PT/OT evaluation - Continue mobility protocol and skin assessment per protocol for pressure ulcer prevention - Continue to monitor for clinical seizures - Continue Nicotine withdrawal precautions, alcohol withdrawal precautions - continue other care per attending / other consultants ..... re-evaluate in am & prn CONDITION: CRITICAL PROGNOSIS: GUARDED CODE STATUS: FULL CODE The high probability of a clinically significant, sudden or life-threatening deterioration of the [respiratory, cardiovascular & neurologic] system(s) required my full and direct attention, intervention and personal management. The aggregate critical care time was [32] minutes without overlap. Time includes spent on; [x] Data Review and interpretation [x] Patient assessment and monitoring of vital signs [x] Documentation [x] Medication orders and management Subjective Date of service: 01/05/20 Principal diagnosis: Ac cardiopulmonary arrest; Ac hypoxemic resp failure; Acute encephalopathy Interval history: Patient is seen today for: Acute cardiopulmonary arrest with ROSC; Acute hypoxemic respiratory failure; Acute metabolic-toxic encephalopathy; Ischemic hepatitis; Leucocytosis with lactic acidosis; Tobacco use disorder; Alcohol use Disorder; Hypokalemia; High grade fevers Seen and examined at bedside; 24hour events reviewed; nursing and respiratory care staff consulted; no adverse overnight events reported to me; resting peacefully in bed; remains on MVS but tolerating PSV at 10/6 very well; appears to be tracking and seems to have nodded head "yes" appropriately to a question; no emesis or overt aspiration Objective Vital Signs - 12hr 01/05/20 01/05/20 01/05/20 03:38 04:00 04:23 Temperature 97.8 F Pulse Rate 102 H 107 H Pulse Rate [ From Monitor] Respiratory 24 Rate Blood Pressure 129/92 129/92 O2 Sat by Pulse 100 100 Oximetry O2 Sat by Pulse Oximetry [ Assessment] 01/05/20 01/05/20 01/05/20 05:00 05:50 06:00 Temperature Pulse Rate 100 H 106 H Pulse Rate [ From Monitor] Respiratory 24 23 Rate Blood Pressure 121/82 128/89 O2 Sat by Pulse 99 100 Oximetry O2 Sat by Pulse 100 Oximetry [ Assessment] 01/05/20 01/05/20 01/05/20 07:00 08:00 09:00 Temperature 97.9 F Pulse Rate 109 H 111 H 106 H Pulse Rate [ 112 H From Monitor] Respiratory 23 22 20 Rate Blood Pressure 134/91 133/90 143/98 O2 Sat by Pulse 100 100 97 Oximetry O2 Sat by Pulse Oximetry [ Assessment] 01/05/20 01/05/20 01/05/20 10:01 10:30 11:00 Temperature Pulse Rate 114 H 114 H 114 H Pulse Rate [ From Monitor] Respiratory 24 21 21 Rate Blood Pressure 113/78 113/78 131/91 O2 Sat by Pulse 100 100 100 Oximetry O2 Sat by Pulse Oximetry [ Assessment] 01/05/20 01/05/20 01/05/20 12:00 13:00 14:00 Temperature 97.0 F L Pulse Rate 113 H 116 H 116 H Pulse Rate [ 113 H From Monitor] Respiratory 22 19 21 Rate Blood Pressure 129/84 125/80 122/83 O2 Sat by Pulse 100 100 100 Oximetry O2 Sat by Pulse Oximetry [ Assessment] 01/05/20 15:00 Temperature Pulse Rate 116 H Pulse Rate [ From Monitor] Respiratory 18 Rate Blood Pressure 124/88 O2 Sat by Pulse 100 Oximetry O2 Sat by Pulse Oximetry [ Assessment] Constitutional: no acute distress, other (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, with midline tracheostomy and mild dys-synchrony) Eyes: non-icteric ENT: oropharynx moist, other (s/p trach) Neck: supple, no lymphadenopathy, no JVD Effort: mildly labored Ascultation: Bilateral: diminished breath sounds, rhonchi Percussion: Bilateral: not dull Cardiovascular: regular rate and rhythm (tachycardia), other (S1,S2) Gastrointestinal: normoactive bowel sounds, soft, non-tender, non-distended Integumentary: normal Extremities: no cyanosis, no edema, pulses normal, no ischemia or petechiae Neurologic: unable to assess, other (awake but not tracking voice ) Psychiatric: other (Psychiatric: Unable to assess) CBC and BMP: 12/30/19 01:06 12/30/19 01:06 ABG, PT/INR, D-dimer: ABG ABG pH 7.440 pH Units (7.350-7.450) 12/30/19 04:23 ABG pCO2 36.6 mm Hg 12/30/19 04:23 ABG pO2 89.9 mm Hg (80.0-90.0) 12/30/19 04:23 ABG O2 Saturation 97.3 % (95.0-99.0) 12/30/19 04:23 PT/INR, D-dimer PT 17.0 Sec. (12.2-14.9) H 11/23/19 03:47 INR 1.36 (0.87-1.13) H 11/23/19 03:47 Abnormal lab findings: Abnormal Labs 11/22/19 11/22/19 11/22/19 23:17 23:18 23:27 WBC 21.2 H RBC 3.59 L Hgb 9.8 L Hct MCH 27 L RDW 18.6 H Plt Count 454 H Lymph % (Auto) [place] % (Auto) [place] # Baso # Seg Neutrophils % Seg Neuts % (Manual) 86.0 H Lymphocytes % (Manual) 9.0 L Monocytes % (Manual) Seg Neutrophils # Seg Neutrophils # Man 18.2 H Lymphocytes # (Manual) Monocytes # (Manual) 1.1 H Eosinophils # (Manual) Basophils # (Manual) PT INR APTT ABG pH ABG pO2 ABG HCO3 ABG O2 Saturation ABG Base Excess ABG Hemoglobin Oxyhemoglobin Sodium Potassium Chloride Carbon Dioxide BUN Creatinine Glucose POC Glucose 53 L Lactic Acid Calcium Ionized Calcium Phosphorus Magnesium Total Bilirubin AST ALT Alkaline Phosphatase Ammonia Total Creatine Kinase CK-MB (CK-2) CK-MB (CK-2) Rel Index Total Protein Albumin Urine WBC (Auto) 40.0 H Vancomycin Trough Salicylates Acetaminophen Plasma/Serum Alcohol Crossmatch 11/22/19 11/22/19 11/22/19 23:27 23:27 23:27 WBC RBC Hgb Hct MCH RDW Plt Count Lymph % (Auto) [place] % (Auto) [place] # Baso # Seg Neutrophils % Seg Neuts % (Manual) Lymphocytes % (Manual) Monocytes % (Manual) Seg Neutrophils # Seg Neutrophils # Man Lymphocytes # (Manual) Monocytes # (Manual) Eosinophils # (Manual) Basophils # (Manual) PT INR APTT ABG pH ABG pO2 ABG HCO3 ABG O2 Saturation ABG Base Excess ABG Hemoglobin Oxyhemoglobin Sodium Potassium 2.4 L* Chloride 85.1 L Carbon Dioxide 19 L BUN Creatinine 0.5 L Glucose 261 H POC Glucose Lactic Acid Calcium Ionized Calcium Phosphorus Magnesium Total Bilirubin AST 609 H ALT 152 H Alkaline Phosphatase 160 H Ammonia 117.0 H Total Creatine Kinase 139 H CK-MB (CK-2) 8.3 H CK-MB (CK-2) Rel Index 5.9 H Total Protein Albumin 3.6 L Urine WBC (Auto) Vancomycin Trough Salicylates < 0.3 L Acetaminophen Plasma/Serum Alcohol Crossmatch 11/22/19 11/22/19 11/23/19 23:27 23:27 01:10 WBC RBC Hgb Hct MCH RDW Plt Count Lymph % (Auto) [place] % (Auto) [place] # Baso # Seg Neutrophils % Seg Neuts % (Manual) Lymphocytes % (Manual) Monocytes % (Manual) Seg Neutrophils # Seg Neutrophils # Man Lymphocytes # (Manual) Monocytes # (Manual) Eosinophils # (Manual) Basophils # (Manual) PT INR APTT ABG pH 7.273 L ABG pO2 209.7 H ABG HCO3 ABG O2 Saturation 99.2 H ABG Base Excess -3.9 L ABG Hemoglobin 10.6 L Oxyhemoglobin 93.9 L Sodium Potassium Chloride Carbon Dioxide BUN Creatinine Glucose POC Glucose Lactic Acid Calcium Ionized Calcium Phosphorus Magnesium Total Bilirubin AST ALT Alkaline Phosphatase Ammonia Total Creatine Kinase CK-MB (CK-2) CK-MB (CK-2) Rel Index Total Protein Albumin Urine WBC (Auto) Vancomycin Trough Salicylates Acetaminophen < 5.0 L Plasma/Serum Alcohol 0.08 H Crossmatch 11/23/19 11/23/19 11/23/19 01:19 01:19 03:47 WBC RBC Hgb Hct MCH RDW Plt Count Lymph % (Auto) [place] % (Auto) [place] # Baso # Seg Neutrophils % Seg Neuts % (Manual) Lymphocytes % (Manual) Monocytes % (Manual) Seg Neutrophils # Seg Neutrophils # Man Lymphocytes # (Manual) Monocytes # (Manual) Eosinophils # (Manual) Basophils # (Manual) PT 16.3 H INR 1.29 H APTT ABG pH ABG pO2 ABG HCO3 ABG O2 Saturation ABG Base Excess ABG Hemoglobin Oxyhemoglobin Sodium Potassium Chloride Carbon Dioxide BUN Creatinine Glucose POC Glucose Lactic Acid 2.10 H* 5.00 H* Calcium Ionized Calcium Phosphorus Magnesium Total Bilirubin AST ALT Alkaline Phosphatase Ammonia Total Creatine Kinase CK-MB (CK-2) CK-MB (CK-2) Rel Index Total Protein Albumin Urine WBC (Auto) Vancomycin Trough Salicylates Acetaminophen Plasma/Serum Alcohol Crossmatch 11/23/19 11/23/19 11/23/19 03:47 03:47 04:53 WBC RBC Hgb 9.4 L Hct MCH RDW Plt Count Lymph % (Auto) [place] % (Auto) [place] # Baso # Seg Neutrophils % Seg Neuts % (Manual) Lymphocytes % (Manual) Monocytes % (Manual) Seg Neutrophils # Seg Neutrophils # Man Lymphocytes # (Manual) Monocytes # (Manual) Eosinophils # (Manual) Basophils # (Manual) PT 17.0 H INR 1.36 H APTT 128.2 H* ABG pH ABG pO2 ABG HCO3 ABG O2 Saturation ABG Base Excess ABG Hemoglobin Oxyhemoglobin Sodium Potassium Chloride Carbon Dioxide 18 L BUN Creatinine 0.5 L Glucose 105 H POC Glucose Lactic Acid Calcium 8.3 L Ionized Calcium Phosphorus 2.40 L Magnesium Total Bilirubin 1.30 H AST 761 H ALT 158 H Alkaline Phosphatase 143 H Ammonia Total Creatine Kinase CK-MB (CK-2) CK-MB (CK-2) Rel Index Total Protein Albumin 2.8 L Urine WBC (Auto) Vancomycin Trough Salicylates Acetaminophen Plasma/Serum Alcohol Crossmatch 11/23/19 11/23/19 11/23/19 05:12 06:32 06:32 WBC 16.8 H RBC 3.31 L Hgb 8.9 L Hct 28.7 L MCH 27 L RDW 18.6 H Plt Count Lymph % (Auto) [place] % (Auto) [place] # Baso # Seg Neutrophils % Seg Neuts % (Manual) 94.0 H Lymphocytes % (Manual) 1.0 L Monocytes % (Manual) Seg Neutrophils # Seg Neutrophils # Man 15.8 H Lymphocytes # (Manual) 0.2 L Monocytes # (Manual) Eosinophils # (Manual) Basophils # (Manual) PT INR APTT ABG pH ABG pO2 ABG HCO3 ABG O2 Saturation ABG Base Excess -3.2 L ABG Hemoglobin 9.0 L Oxyhemoglobin 93.6 L Sodium Potassium Chloride Carbon Dioxide BUN Creatinine Glucose POC Glucose Lactic Acid Calcium Ionized Calcium 4.5 L Phosphorus Magnesium Total Bilirubin AST ALT Alkaline Phosphatase Ammonia Total Creatine Kinase CK-MB (CK-2) CK-MB (CK-2) Rel Index Total Protein Albumin Urine WBC (Auto) Vancomycin Trough Salicylates Acetaminophen Plasma/Serum Alcohol Crossmatch 11/23/19 11/24/19 11/24/19 06:32 04:35 04:35 WBC RBC Hgb Hct MCH RDW Plt Count Lymph % (Auto) [place] % (Auto) [place] # Baso # Seg Neutrophils % Seg Neuts % (Manual) Lymphocytes % (Manual) Monocytes % (Manual) Seg Neutrophils # Seg Neutrophils # Man Lymphocytes # (Manual) Monocytes # (Manual) Eosinophils # (Manual) Basophils # (Manual) PT INR APTT ABG pH ABG pO2 ABG HCO3 ABG O2 Saturation ABG Base Excess ABG Hemoglobin Oxyhemoglobin Sodium Potassium Chloride Carbon Dioxide BUN Creatinine Glucose POC Glucose Lactic Acid 3.30 H* Calcium Ionized Calcium Phosphorus Magnesium 1.40 L Total Bilirubin AST ALT Alkaline Phosphatase Ammonia 98.0 H Total Creatine Kinase CK-MB (CK-2) CK-MB (CK-2) Rel Index Total Protein Albumin Urine WBC (Auto) Vancomycin Trough Salicylates Acetaminophen Plasma/Serum Alcohol Crossmatch 11/24/19 11/25/19 11/25/19 05:22 04:34 05:05 WBC 17.3 H RBC 2.88 L Hgb 7.8 L Hct 24.6 L MCH 27 L RDW 18.5 H Plt Count Lymph % (Auto) 7.7 L [place] % (Auto) 9.7 H [place] # 1.7 H Baso # Seg Neutrophils % 82.2 H Seg Neuts % (Manual) Lymphocytes % (Manual) Monocytes % (Manual) Seg Neutrophils # 14.2 H Seg Neutrophils # Man Lymphocytes # (Manual) Monocytes # (Manual) Eosinophils # (Manual) Basophils # (Manual) PT INR APTT ABG pH 7.475 H ABG pO2 ABG HCO3 29.4 H 32.3 H ABG O2 Saturation ABG Base Excess 5.4 H 6.9 H ABG Hemoglobin 9.0 L 10.6 L Oxyhemoglobin 94.3 L Sodium Potassium Chloride Carbon Dioxide BUN Creatinine Glucose POC Glucose Lactic Acid Calcium Ionized Calcium Phosphorus Magnesium Total Bilirubin AST ALT Alkaline Phosphatase Ammonia Total Creatine Kinase CK-MB (CK-2) CK-MB (CK-2) Rel Index Total Protein Albumin Urine WBC (Auto) Vancomycin Trough Salicylates Acetaminophen Plasma/Serum Alcohol Crossmatch 11/25/19 11/25/19 11/26/19 05:05 22:46 03:31 WBC RBC Hgb Hct MCH RDW Plt Count Lymph % (Auto) [place] % (Auto) [place] # Baso # Seg Neutrophils % Seg Neuts % (Manual) Lymphocytes % (Manual) Monocytes % (Manual) Seg Neutrophils # Seg Neutrophils # Man Lymphocytes # (Manual) Monocytes # (Manual) Eosinophils # (Manual) Basophils # (Manual) PT INR APTT ABG pH 7.459 H ABG pO2 ABG HCO3 34.2 H ABG O2 Saturation ABG Base Excess 9.4 H ABG Hemoglobin 7.6 L Oxyhemoglobin 94.8 L Sodium 152 H D 147 H Potassium 2.3 L* D 2.8 L* D Chloride 107.8 H Carbon Dioxide 31 H D 33 H BUN Creatinine 0.6 L 0.6 L Glucose 148 H 177 H POC Glucose Lactic Acid Calcium Ionized Calcium Phosphorus Magnesium Total Bilirubin AST 105 H ALT 71 H Alkaline Phosphatase 155 H Ammonia Total Creatine Kinase CK-MB (CK-2) CK-MB (CK-2) Rel Index Total Protein 5.2 L D Albumin 2.9 L Urine WBC (Auto) Vancomycin Trough Salicylates Acetaminophen Plasma/Serum Alcohol Crossmatch 11/26/19 11/26/19 11/27/19 08:24 08:24 04:20 WBC 12.0 H RBC 3.00 L Hgb 8.0 L 9.3 L Hct 25.9 L 29.7 L MCH 27 L RDW 18.5 H Plt Count Lymph % (Auto) [place] % (Auto) [place] # Baso # Seg Neutrophils % Seg Neuts % (Manual) 89.0 H Lymphocytes % (Manual) 4.0 L Monocytes % (Manual) Seg Neutrophils # Seg Neutrophils # Man 10.7 H Lymphocytes # (Manual) 0.5 L Monocytes # (Manual) Eosinophils # (Manual) Basophils # (Manual) PT INR APTT ABG pH ABG pO2 ABG HCO3 ABG O2 Saturation ABG Base Excess ABG Hemoglobin Oxyhemoglobin Sodium 146 H Potassium 3.4 L D Chloride Carbon Dioxide BUN Creatinine 0.5 L Glucose 165 H POC Glucose Lactic Acid Calcium Ionized Calcium Phosphorus Magnesium Total Bilirubin AST 57 H ALT Alkaline Phosphatase 166 H Ammonia Total Creatine Kinase CK-MB (CK-2) CK-MB (CK-2) Rel Index Total Protein Albumin 2.9 L Urine WBC (Auto) Vancomycin Trough Salicylates Acetaminophen Plasma/Serum Alcohol Crossmatch 11/27/19 11/27/19 11/27/19 04:28 04:28 04:42 WBC RBC Hgb Hct MCH RDW Plt Count Lymph % (Auto) [place] % (Auto) [place] # Baso # Seg Neutrophils % Seg Neuts % (Manual) Lymphocytes % (Manual) Monocytes % (Manual) Seg Neutrophils # Seg Neutrophils # Man Lymphocytes # (Manual) Monocytes # (Manual) Eosinophils # (Manual) Basophils # (Manual) PT INR APTT ABG pH 7.470 H ABG pO2 74.0 L ABG HCO3 33.8 H ABG O2 Saturation ABG Base Excess 9.1 H ABG Hemoglobin 8.7 L Oxyhemoglobin 94.7 L Sodium 146 H Potassium 2.9 L* Chloride Carbon Dioxide BUN 25 H Creatinine Glucose 213 H POC Glucose Lactic Acid Calcium Ionized Calcium Phosphorus 1.00 L Magnesium Total Bilirubin AST ALT Alkaline Phosphatase Ammonia Total Creatine Kinase CK-MB (CK-2) CK-MB (CK-2) Rel Index Total Protein Albumin Urine WBC (Auto) Vancomycin Trough Salicylates Acetaminophen Plasma/Serum Alcohol Crossmatch 11/27/19 11/27/19 11/27/19 05:37 12:20 15:46 WBC RBC Hgb Hct MCH RDW Plt Count Lymph % (Auto) [place] % (Auto) [place] # Baso # Seg Neutrophils % Seg Neuts % (Manual) Lymphocytes % (Manual) Monocytes % (Manual) Seg Neutrophils # Seg Neutrophils # Man Lymphocytes # (Manual) Monocytes # (Manual) Eosinophils # (Manual) Basophils # (Manual) PT INR APTT ABG pH ABG pO2 ABG HCO3 ABG O2 Saturation ABG Base Excess ABG Hemoglobin Oxyhemoglobin Sodium 146 H Potassium 3.5 L D Chloride Carbon Dioxide BUN 24 H Creatinine 0.6 L Glucose 187 H POC Glucose 117 H 220 H Lactic Acid Calcium Ionized Calcium Phosphorus Magnesium Total Bilirubin AST ALT Alkaline Phosphatase Ammonia Total Creatine Kinase CK-MB (CK-2) CK-MB (CK-2) Rel Index Total Protein Albumin Urine WBC (Auto) Vancomycin Trough Salicylates Acetaminophen Plasma/Serum Alcohol Crossmatch 11/27/19 11/28/19 11/28/19 17:28 05:00 05:02 WBC RBC Hgb Hct MCH RDW Plt Count Lymph % (Auto) [place] % (Auto) [place] # Baso # Seg Neutrophils % Seg Neuts % (Manual) Lymphocytes % (Manual) Monocytes % (Manual) Seg Neutrophils # Seg Neutrophils # Man Lymphocytes # (Manual) Monocytes # (Manual) Eosinophils # (Manual) Basophils # (Manual) PT INR APTT ABG pH ABG pO2 72.4 L ABG HCO3 33.6 H ABG O2 Saturation 94.1 L ABG Base Excess 7.3 H ABG Hemoglobin Oxyhemoglobin 91.8 L Sodium 146 H Potassium 3.3 L Chloride Carbon Dioxide BUN 25 H Creatinine 0.6 L Glucose 176 H POC Glucose 198 H Lactic Acid Calcium Ionized Calcium Phosphorus Magnesium Total Bilirubin AST ALT Alkaline Phosphatase Ammonia Total Creatine Kinase CK-MB (CK-2) CK-MB (CK-2) Rel Index Total Protein Albumin Urine WBC (Auto) Vancomycin Trough Salicylates Acetaminophen Plasma/Serum Alcohol Crossmatch 11/28/19 11/28/19 11/29/19 05:02 18:55 10:43 WBC 15.2 H 19.0 H RBC 3.06 L 3.01 L Hgb 8.3 L 8.3 L Hct 27.0 L 26.4 L MCH 27 L RDW 19.0 H 19.7 H Plt Count 479 H 611 H Lymph % (Auto) [place] % (Auto) [place] # Baso # Seg Neutrophils % Seg Neuts % (Manual) 92.0 H Lymphocytes % (Manual) 2.0 L Monocytes % (Manual) Seg Neutrophils # Seg Neutrophils # Man 14.0 H Lymphocytes # (Manual) 0.3 L Monocytes # (Manual) Eosinophils # (Manual) Basophils # (Manual) PT INR APTT ABG pH ABG pO2 ABG HCO3 ABG O2 Saturation ABG Base Excess ABG Hemoglobin Oxyhemoglobin Sodium Potassium Chloride Carbon Dioxide BUN Creatinine Glucose POC Glucose 138 H Lactic Acid Calcium Ionized Calcium Phosphorus Magnesium Total Bilirubin AST ALT Alkaline Phosphatase Ammonia Total Creatine Kinase CK-MB (CK-2) CK-MB (CK-2) Rel Index Total Protein Albumin Urine WBC (Auto) Vancomycin Trough Salicylates Acetaminophen Plasma/Serum Alcohol Crossmatch 11/29/19 11/29/19 11/29/19 10:43 12:27 19:25 WBC RBC Hgb Hct MCH RDW Plt Count Lymph % (Auto) [place] % (Auto) [place] # Baso # Seg Neutrophils % Seg Neuts % (Manual) Lymphocytes % (Manual) Monocytes % (Manual) Seg Neutrophils # Seg Neutrophils # Man Lymphocytes # (Manual) Monocytes # (Manual) Eosinophils # (Manual) Basophils # (Manual) PT INR APTT ABG pH ABG pO2 ABG HCO3 ABG O2 Saturation ABG Base Excess ABG Hemoglobin Oxyhemoglobin Sodium Potassium 2.8 L* Chloride Carbon Dioxide BUN 20 H Creatinine 0.5 L Glucose 121 H POC Glucose 128 H 120 H Lactic Acid Calcium Ionized Calcium Phosphorus Magnesium Total Bilirubin AST ALT Alkaline Phosphatase Ammonia Total Creatine Kinase CK-MB (CK-2) CK-MB (CK-2) Rel Index Total Protein Albumin Urine WBC (Auto) Vancomycin Trough Salicylates Acetaminophen Plasma/Serum Alcohol Crossmatch 11/29/19 11/30/19 11/30/19 23:46 04:10 05:02 WBC RBC Hgb Hct MCH RDW Plt Count Lymph % (Auto) [place] % (Auto) [place] # Baso # Seg Neutrophils % Seg Neuts % (Manual) Lymphocytes % (Manual) Monocytes % (Manual) Seg Neutrophils # Seg Neutrophils # Man Lymphocytes # (Manual) Monocytes # (Manual) Eosinophils # (Manual) Basophils # (Manual) PT INR APTT ABG pH ABG pO2 76.3 L ABG HCO3 32.5 H ABG O2 Saturation ABG Base Excess 6.9 H ABG Hemoglobin 8.0 L Oxyhemoglobin 92.6 L Sodium Potassium Chloride Carbon Dioxide BUN Creatinine Glucose POC Glucose 116 H 128 H Lactic Acid Calcium Ionized Calcium Phosphorus Magnesium Total Bilirubin AST ALT Alkaline Phosphatase Ammonia Total Creatine Kinase CK-MB (CK-2) CK-MB (CK-2) Rel Index Total Protein Albumin Urine WBC (Auto) Vancomycin Trough Salicylates Acetaminophen Plasma/Serum Alcohol Crossmatch 11/30/19 11/30/19 11/30/19 05:25 05:25 12:59 WBC 18.4 H RBC 3.10 L Hgb 8.5 L Hct 27.5 L MCH 27 L RDW 20.9 H Plt Count 691 H Lymph % (Auto) 7.1 L [place] % (Auto) 7.7 H [place] # 1.4 H Baso # Seg Neutrophils % 83.4 H Seg Neuts % (Manual) Lymphocytes % (Manual) Monocytes % (Manual) Seg Neutrophils # 15.4 H Seg Neutrophils # Man Lymphocytes # (Manual) Monocytes # (Manual) Eosinophils # (Manual) Basophils # (Manual) PT INR APTT ABG pH ABG pO2 ABG HCO3 ABG O2 Saturation ABG Base Excess ABG Hemoglobin Oxyhemoglobin Sodium 146 H Potassium Chloride 107.2 H Carbon Dioxide BUN Creatinine 0.5 L Glucose 132 H POC Glucose 124 H Lactic Acid Calcium Ionized Calcium Phosphorus Magnesium Total Bilirubin AST 246 H ALT 274 H Alkaline Phosphatase 203 H Ammonia Total Creatine Kinase CK-MB (CK-2) CK-MB (CK-2) Rel Index Total Protein 5.4 L Albumin 2.9 L Urine WBC (Auto) Vancomycin Trough Salicylates Acetaminophen Plasma/Serum Alcohol Crossmatch 11/30/19 12/01/19 12/01/19 17:53 00:05 05:10 WBC RBC Hgb Hct MCH RDW Plt Count Lymph % (Auto) [place] % (Auto) [place] # Baso # Seg Neutrophils % Seg Neuts % (Manual) Lymphocytes % (Manual) Monocytes % (Manual) Seg Neutrophils # Seg Neutrophils # Man Lymphocytes # (Manual) Monocytes # (Manual) Eosinophils # (Manual) Basophils # (Manual) PT INR APTT ABG pH ABG pO2 ABG HCO3 ABG O2 Saturation ABG Base Excess ABG Hemoglobin Oxyhemoglobin Sodium Potassium Chloride Carbon Dioxide BUN Creatinine Glucose POC Glucose 113 H 143 H 145 H Lactic Acid Calcium Ionized Calcium Phosphorus Magnesium Total Bilirubin AST ALT Alkaline Phosphatase Ammonia Total Creatine Kinase CK-MB (CK-2) CK-MB (CK-2) Rel Index Total Protein Albumin Urine WBC (Auto) Vancomycin Trough Salicylates Acetaminophen Plasma/Serum Alcohol Crossmatch 12/01/19 12/01/19 12/01/19 05:33 08:23 08:23 WBC 22.7 H RBC 2.88 L Hgb 7.9 L Hct 25.2 L MCH 27 L RDW 21.0 H Plt Count 732 H Lymph % (Auto) [place] % (Auto) [place] # Baso # Seg Neutrophils % Seg Neuts % (Manual) 91.0 H Lymphocytes % (Manual) 3.0 L Monocytes % (Manual) Seg Neutrophils # Seg Neutrophils # Man 20.7 H Lymphocytes # (Manual) 0.7 L Monocytes # (Manual) 1.1 H Eosinophils # (Manual) Basophils # (Manual) PT INR APTT ABG pH ABG pO2 68.6 L ABG HCO3 34.1 H ABG O2 Saturation ABG Base Excess 9.0 H ABG Hemoglobin 6.5 L Oxyhemoglobin 94.7 L Sodium Potassium Chloride Carbon Dioxide BUN Creatinine 0.5 L Glucose 125 H POC Glucose Lactic Acid Calcium Ionized Calcium Phosphorus Magnesium Total Bilirubin AST ALT Alkaline Phosphatase Ammonia Total Creatine Kinase CK-MB (CK-2) CK-MB (CK-2) Rel Index Total Protein Albumin Urine WBC (Auto) Vancomycin Trough Salicylates Acetaminophen Plasma/Serum Alcohol Crossmatch 12/01/19 12/01/19 12/01/19 13:21 17:54 20:59 WBC RBC Hgb Hct MCH RDW Plt Count Lymph % (Auto) [place] % (Auto) [place] # Baso # Seg Neutrophils % Seg Neuts % (Manual) Lymphocytes % (Manual) Monocytes % (Manual) Seg Neutrophils # Seg Neutrophils # Man Lymphocytes # (Manual) Monocytes # (Manual) Eosinophils # (Manual) Basophils # (Manual) PT INR APTT ABG pH ABG pO2 78.3 L ABG HCO3 33.8 H ABG O2 Saturation 94.9 L ABG Base Excess 7.9 H ABG Hemoglobin 11.5 L Oxyhemoglobin 92.3 L Sodium Potassium Chloride Carbon Dioxide BUN Creatinine Glucose POC Glucose 111 H 115 H Lactic Acid Calcium Ionized Calcium Phosphorus Magnesium Total Bilirubin AST ALT Alkaline Phosphatase Ammonia Total Creatine Kinase CK-MB (CK-2) CK-MB (CK-2) Rel Index Total Protein Albumin Urine WBC (Auto) Vancomycin Trough Salicylates Acetaminophen Plasma/Serum Alcohol Crossmatch 12/02/19 12/03/19 12/04/19 12:55 20:00 04:26 WBC 15.2 H RBC 2.69 L Hgb 7.4 L Hct 23.6 L MCH 27 L RDW 19.9 H Plt Count 838 H Lymph % (Auto) [place] % (Auto) [place] # Baso # Seg Neutrophils % Seg Neuts % (Manual) Lymphocytes % (Manual) Monocytes % (Manual) Seg Neutrophils # Seg Neutrophils # Man Lymphocytes # (Manual) Monocytes # (Manual) Eosinophils # (Manual) Basophils # (Manual) PT INR APTT ABG pH ABG pO2 68.3 L ABG HCO3 33.5 H ABG O2 Saturation 93.5 L ABG Base Excess 8.4 H ABG Hemoglobin 7.3 L Oxyhemoglobin 90.9 L Sodium Potassium Chloride Carbon Dioxide BUN Creatinine Glucose POC Glucose 107 H Lactic Acid Calcium Ionized Calcium Phosphorus Magnesium Total Bilirubin AST ALT Alkaline Phosphatase Ammonia Total Creatine Kinase CK-MB (CK-2) CK-MB (CK-2) Rel Index Total Protein Albumin Urine WBC (Auto) Vancomycin Trough Salicylates Acetaminophen Plasma/Serum Alcohol Crossmatch 12/04/19 12/04/19 12/04/19 04:26 07:45 12:02 WBC 15.9 H RBC 2.88 L Hgb 7.9 L Hct 25.1 L MCH RDW 20.4 H Plt Count 839 H Lymph % (Auto) 11.3 L [place] % (Auto) 15.2 H [place] # 2.4 H Baso # Seg Neutrophils % 72.4 H Seg Neuts % (Manual) Lymphocytes % (Manual) Monocytes % (Manual) Seg Neutrophils # 11.5 H Seg Neutrophils # Man Lymphocytes # (Manual) Monocytes # (Manual) Eosinophils # (Manual) Basophils # (Manual) PT INR APTT ABG pH ABG pO2 ABG HCO3 ABG O2 Saturation ABG Base Excess ABG Hemoglobin Oxyhemoglobin Sodium Potassium Chloride 96.5 L Carbon Dioxide BUN 21 H Creatinine 0.6 L Glucose 107 H POC Glucose 138 H Lactic Acid Calcium Ionized Calcium Phosphorus Magnesium Total Bilirubin AST ALT Alkaline Phosphatase Ammonia Total Creatine Kinase CK-MB (CK-2) CK-MB (CK-2) Rel Index Total Protein Albumin Urine WBC (Auto) Vancomycin Trough Salicylates Acetaminophen Plasma/Serum Alcohol Crossmatch 12/04/19 12/05/19 12/05/19 18:16 11:55 18:36 WBC RBC Hgb Hct MCH RDW Plt Count Lymph % (Auto) [place] % (Auto) [place] # Baso # Seg Neutrophils % Seg Neuts % (Manual) Lymphocytes % (Manual) Monocytes % (Manual) Seg Neutrophils # Seg Neutrophils # Man Lymphocytes # (Manual) Monocytes # (Manual) Eosinophils # (Manual) Basophils # (Manual) PT INR APTT ABG pH ABG pO2 ABG HCO3 ABG O2 Saturation ABG Base Excess ABG Hemoglobin Oxyhemoglobin Sodium Potassium Chloride Carbon Dioxide BUN Creatinine Glucose POC Glucose 135 H 125 H 135 H Lactic Acid Calcium Ionized Calcium Phosphorus Magnesium Total Bilirubin AST ALT Alkaline Phosphatase Ammonia Total Creatine Kinase CK-MB (CK-2) CK-MB (CK-2) Rel Index Total Protein Albumin Urine WBC (Auto) Vancomycin Trough Salicylates Acetaminophen Plasma/Serum Alcohol Crossmatch 12/05/19 12/06/19 12/06/19 23:30 04:14 05:43 WBC RBC Hgb Hct MCH RDW Plt Count Lymph % (Auto) [place] % (Auto) [place] # Baso # Seg Neutrophils % Seg Neuts % (Manual) Lymphocytes % (Manual) Monocytes % (Manual) Seg Neutrophils # Seg Neutrophils # Man Lymphocytes # (Manual) Monocytes # (Manual) Eosinophils # (Manual) Basophils # (Manual) PT INR APTT ABG pH ABG pO2 ABG HCO3 ABG O2 Saturation ABG Base Excess ABG Hemoglobin Oxyhemoglobin Sodium Potassium 5.6 H Chloride 95.0 L Carbon Dioxide BUN 48 H Creatinine 1.3 H D Glucose POC Glucose 126 H 121 H Lactic Acid Calcium Ionized Calcium Phosphorus Magnesium Total Bilirubin AST 89 H ALT 98 H Alkaline Phosphatase 476 H Ammonia Total Creatine Kinase CK-MB (CK-2) CK-MB (CK-2) Rel Index Total Protein Albumin 2.8 L Urine WBC (Auto) Vancomycin Trough Salicylates Acetaminophen Plasma/Serum Alcohol Crossmatch 12/06/19 12/06/19 12/07/19 10:39 14:34 00:19 WBC 17.3 H RBC 2.60 L Hgb 7.1 L Hct 22.7 L MCH 27 L RDW 20.1 H Plt Count 832 H Lymph % (Auto) [place] % (Auto) [place] # Baso # Seg Neutrophils % Seg Neuts % (Manual) Lymphocytes % (Manual) Monocytes % (Manual) Seg Neutrophils # Seg Neutrophils # Man Lymphocytes # (Manual) Monocytes # (Manual) Eosinophils # (Manual) Basophils # (Manual) PT INR APTT ABG pH ABG pO2 ABG HCO3 ABG O2 Saturation ABG Base Excess ABG Hemoglobin Oxyhemoglobin Sodium Potassium Chloride Carbon Dioxide BUN Creatinine Glucose POC Glucose 128 H 136 H Lactic Acid Calcium Ionized Calcium Phosphorus Magnesium Total Bilirubin AST ALT Alkaline Phosphatase Ammonia Total Creatine Kinase CK-MB (CK-2) CK-MB (CK-2) Rel Index Total Protein Albumin Urine WBC (Auto) Vancomycin Trough Salicylates Acetaminophen Plasma/Serum Alcohol Crossmatch 12/07/19 12/07/19 12/07/19 03:44 03:44 05:53 WBC 16.2 H RBC 2.56 L Hgb 7.1 L Hct 22.3 L MCH RDW 19.4 H Plt Count 782 H Lymph % (Auto) [place] % (Auto) [place] # Baso # Seg Neutrophils % Seg Neuts % (Manual) Lymphocytes % (Manual) Monocytes % (Manual) Seg Neutrophils # Seg Neutrophils # Man Lymphocytes # (Manual) Monocytes # (Manual) Eosinophils # (Manual) Basophils # (Manual) PT INR APTT ABG pH ABG pO2 ABG HCO3 ABG O2 Saturation ABG Base Excess ABG Hemoglobin Oxyhemoglobin Sodium Potassium Chloride 95.6 L Carbon Dioxide BUN 56 H Creatinine 1.4 H Glucose 120 H POC Glucose 128 H Lactic Acid Calcium 10.3 H Ionized Calcium Phosphorus Magnesium Total Bilirubin AST ALT Alkaline Phosphatase Ammonia Total Creatine Kinase CK-MB (CK-2) CK-MB (CK-2) Rel Index Total Protein Albumin Urine WBC (Auto) Vancomycin Trough Salicylates Acetaminophen Plasma/Serum Alcohol Crossmatch 12/07/19 12/07/19 12/08/19 12:54 23:47 00:20 WBC RBC Hgb Hct MCH RDW Plt Count Lymph % (Auto) [place] % (Auto) [place] # Baso # Seg Neutrophils % Seg Neuts % (Manual) Lymphocytes % (Manual) Monocytes % (Manual) Seg Neutrophils # Seg Neutrophils # Man Lymphocytes # (Manual) Monocytes # (Manual) Eosinophils # (Manual) Basophils # (Manual) PT INR APTT ABG pH ABG pO2 ABG HCO3 ABG O2 Saturation ABG Base Excess ABG Hemoglobin Oxyhemoglobin Sodium Potassium Chloride Carbon Dioxide BUN Creatinine Glucose POC Glucose 128 H 130 H 124 H Lactic Acid Calcium Ionized Calcium Phosphorus Magnesium Total Bilirubin AST ALT Alkaline Phosphatase Ammonia Total Creatine Kinase CK-MB (CK-2) CK-MB (CK-2) Rel Index Total Protein Albumin Urine WBC (Auto) Vancomycin Trough Salicylates Acetaminophen Plasma/Serum Alcohol Crossmatch 12/08/19 12/08/19 12/08/19 06:38 12:04 18:26 WBC RBC Hgb Hct MCH RDW Plt Count Lymph % (Auto) [place] % (Auto) [place] # Baso # Seg Neutrophils % Seg Neuts % (Manual) Lymphocytes % (Manual) Monocytes % (Manual) Seg Neutrophils # Seg Neutrophils # Man Lymphocytes # (Manual) Monocytes # (Manual) Eosinophils # (Manual) Basophils # (Manual) PT INR APTT ABG pH ABG pO2 ABG HCO3 ABG O2 Saturation ABG Base Excess ABG Hemoglobin Oxyhemoglobin Sodium Potassium Chloride Carbon Dioxide BUN Creatinine Glucose POC Glucose 137 H 129 H 150 H Lactic Acid Calcium Ionized Calcium Phosphorus Magnesium Total Bilirubin AST ALT Alkaline Phosphatase Ammonia Total Creatine Kinase CK-MB (CK-2) CK-MB (CK-2) Rel Index Total Protein Albumin Urine WBC (Auto) Vancomycin Trough Salicylates Acetaminophen Plasma/Serum Alcohol Crossmatch 12/09/19 12/09/19 12/09/19 00:56 05:34 06:13 WBC RBC Hgb Hct MCH RDW Plt Count Lymph % (Auto) [place] % (Auto) [place] # Baso # Seg Neutrophils % Seg Neuts % (Manual) Lymphocytes % (Manual) Monocytes % (Manual) Seg Neutrophils # Seg Neutrophils # Man Lymphocytes # (Manual) Monocytes # (Manual) Eosinophils # (Manual) Basophils # (Manual) PT INR APTT ABG pH ABG pO2 ABG HCO3 ABG O2 Saturation ABG Base Excess ABG Hemoglobin Oxyhemoglobin Sodium 146 H Potassium Chloride Carbon Dioxide BUN 66 H Creatinine 1.9 H Glucose 116 H POC Glucose 130 H 130 H Lactic Acid Calcium Ionized Calcium Phosphorus Magnesium Total Bilirubin AST ALT Alkaline Phosphatase Ammonia Total Creatine Kinase CK-MB (CK-2) CK-MB (CK-2) Rel Index Total Protein Albumin Urine WBC (Auto) Vancomycin Trough Salicylates Acetaminophen Plasma/Serum Alcohol Crossmatch 03/22/20 03/22/20 03/23/20 11:52 17:50 00:14 WBC RBC Hgb Hct MCH RDW Plt Count Lymph % (Auto) [place] % (Auto) [place] # Baso # Seg Neutrophils % Seg Neuts % (Manual) Lymphocytes % (Manual) Monocytes % (Manual) Seg Neutrophils # Seg Neutrophils # Man Lymphocytes # (Manual) Monocytes # (Manual) Eosinophils # (Manual) Basophils # (Manual) PT INR APTT ABG pH ABG pO2 ABG HCO3 ABG O2 Saturation ABG Base Excess ABG Hemoglobin Oxyhemoglobin Sodium Potassium Chloride Carbon Dioxide BUN Creatinine Glucose POC Glucose 135 H 120 H 116 H Lactic Acid Calcium Ionized Calcium Phosphorus Magnesium Total Bilirubin AST ALT Alkaline Phosphatase Ammonia Total Creatine Kinase CK-MB (CK-2) CK-MB (CK-2) Rel Index Total Protein Albumin Urine WBC (Auto) Vancomycin Trough Salicylates Acetaminophen Plasma/Serum Alcohol Crossmatch 12/10/19 12/10/19 12/10/19 05:38 11:38 17:34 WBC RBC Hgb Hct MCH RDW Plt Count Lymph % (Auto) [place] % (Auto) [place] # Baso # Seg Neutrophils % Seg Neuts % (Manual) Lymphocytes % (Manual) Monocytes % (Manual) Seg Neutrophils # Seg Neutrophils # Man Lymphocytes # (Manual) Monocytes # (Manual) Eosinophils # (Manual) Basophils # (Manual) PT INR APTT ABG pH ABG pO2 ABG HCO3 ABG O2 Saturation ABG Base Excess ABG Hemoglobin Oxyhemoglobin Sodium Potassium Chloride Carbon Dioxide BUN Creatinine Glucose POC Glucose 115 H 112 H 130 H Lactic Acid Calcium Ionized Calcium Phosphorus Magnesium Total Bilirubin AST ALT Alkaline Phosphatase Ammonia Total Creatine Kinase CK-MB (CK-2) CK-MB (CK-2) Rel Index Total Protein Albumin Urine WBC (Auto) Vancomycin Trough Salicylates Acetaminophen Plasma/Serum Alcohol Crossmatch 12/11/19 12/11/19 12/11/19 00:20 05:31 12:22 WBC RBC Hgb Hct MCH RDW Plt Count Lymph % (Auto) [place] % (Auto) [place] # Baso # Seg Neutrophils % Seg Neuts % (Manual) Lymphocytes % (Manual) Monocytes % (Manual) Seg Neutrophils # Seg Neutrophils # Man Lymphocytes # (Manual) Monocytes # (Manual) Eosinophils # (Manual) Basophils # (Manual) PT INR APTT ABG pH ABG pO2 ABG HCO3 ABG O2 Saturation ABG Base Excess ABG Hemoglobin Oxyhemoglobin Sodium Potassium Chloride Carbon Dioxide BUN Creatinine Glucose POC Glucose 124 H 132 H 128 H Lactic Acid Calcium Ionized Calcium Phosphorus Magnesium Total Bilirubin AST ALT Alkaline Phosphatase Ammonia Total Creatine Kinase CK-MB (CK-2) CK-MB (CK-2) Rel Index Total Protein Albumin Urine WBC (Auto) Vancomycin Trough Salicylates Acetaminophen Plasma/Serum Alcohol Crossmatch 12/11/19 12/11/19 12/12/19 18:04 23:42 03:51 WBC RBC Hgb Hct MCH RDW Plt Count Lymph % (Auto) [place] % (Auto) [place] # Baso # Seg Neutrophils % Seg Neuts % (Manual) Lymphocytes % (Manual) Monocytes % (Manual) Seg Neutrophils # Seg Neutrophils # Man Lymphocytes # (Manual) Monocytes # (Manual) Eosinophils # (Manual) Basophils # (Manual) PT INR APTT ABG pH ABG pO2 ABG HCO3 ABG O2 Saturation ABG Base Excess ABG Hemoglobin Oxyhemoglobin Sodium 149 H Potassium Chloride Carbon Dioxide 20 L D BUN 77 H Creatinine 2.8 H Glucose POC Glucose 133 H 154 H Lactic Acid Calcium Ionized Calcium Phosphorus Magnesium Total Bilirubin AST ALT Alkaline Phosphatase Ammonia Total Creatine Kinase CK-MB (CK-2) CK-MB (CK-2) Rel Index Total Protein Albumin Urine WBC (Auto) Vancomycin Trough Salicylates Acetaminophen Plasma/Serum Alcohol Crossmatch 12/12/19 12/12/19 12/12/19 05:18 05:26 10:30 WBC 18.0 H RBC 2.51 L Hgb 6.8 L Hct 22.0 L MCH 27 L RDW 19.9 H Plt Count 582 H Lymph % (Auto) [place] % (Auto) [place] # Baso # Seg Neutrophils % Seg Neuts % (Manual) Lymphocytes % (Manual) Monocytes % (Manual) Seg Neutrophils # Seg Neutrophils # Man Lymphocytes # (Manual) Monocytes # (Manual) Eosinophils # (Manual) Basophils # (Manual) PT INR APTT ABG pH ABG pO2 ABG HCO3 ABG O2 Saturation ABG Base Excess ABG Hemoglobin Oxyhemoglobin Sodium Potassium Chloride Carbon Dioxide BUN Creatinine Glucose POC Glucose 135 H Lactic Acid Calcium Ionized Calcium Phosphorus Magnesium Total Bilirubin AST ALT Alkaline Phosphatase Ammonia Total Creatine Kinase CK-MB (CK-2) CK-MB (CK-2) Rel Index Total Protein Albumin Urine WBC (Auto) Vancomycin Trough Salicylates Acetaminophen Plasma/Serum Alcohol Crossmatch See Detail 12/12/19 12/12/19 12/12/19 11:44 18:10 23:21 WBC RBC Hgb Hct MCH RDW Plt Count Lymph % (Auto) [place] % (Auto) [place] # Baso # Seg Neutrophils % Seg Neuts % (Manual) Lymphocytes % (Manual) Monocytes % (Manual) Seg Neutrophils # Seg Neutrophils # Man Lymphocytes # (Manual) Monocytes # (Manual) Eosinophils # (Manual) Basophils # (Manual) PT INR APTT ABG pH ABG pO2 ABG HCO3 ABG O2 Saturation ABG Base Excess ABG Hemoglobin Oxyhemoglobin Sodium Potassium Chloride Carbon Dioxide BUN Creatinine Glucose POC Glucose 108 H 107 H 126 H Lactic Acid Calcium Ionized Calcium Phosphorus Magnesium Total Bilirubin AST ALT Alkaline Phosphatase Ammonia Total Creatine Kinase CK-MB (CK-2) CK-MB (CK-2) Rel Index Total Protein Albumin Urine WBC (Auto) Vancomycin Trough Salicylates Acetaminophen Plasma/Serum Alcohol Crossmatch 12/13/19 12/13/19 12/13/19 05:41 07:48 07:48 WBC 38.3 H RBC 2.37 L Hgb 6.3 L Hct 20.9 L MCH 27 L RDW 20.2 H Plt Count 546 H Lymph % (Auto) [place] % (Auto) [place] # Baso # Seg Neutrophils % Seg Neuts % (Manual) 93.0 H Lymphocytes % (Manual) 1.0 L Monocytes % (Manual) Seg Neutrophils # Seg Neutrophils # Man 35.6 H Lymphocytes # (Manual) 0.4 L Monocytes # (Manual) Eosinophils # (Manual) Basophils # (Manual) 0.4 H PT INR APTT ABG pH ABG pO2 ABG HCO3 ABG O2 Saturation ABG Base Excess ABG Hemoglobin Oxyhemoglobin Sodium 152 H Potassium 3.1 L D Chloride 111.9 H Carbon Dioxide 21 L BUN 53 H Creatinine 1.9 H Glucose 141 H POC Glucose 128 H Lactic Acid Calcium Ionized Calcium Phosphorus Magnesium Total Bilirubin AST ALT Alkaline Phosphatase 316 H Ammonia Total Creatine Kinase CK-MB (CK-2) CK-MB (CK-2) Rel Index Total Protein Albumin 2.4 L Urine WBC (Auto) Vancomycin Trough Salicylates Acetaminophen Plasma/Serum Alcohol Crossmatch 12/13/19 12/13/19 12/14/19 18:17 23:19 05:36 WBC RBC Hgb Hct MCH RDW Plt Count Lymph % (Auto) [place] % (Auto) [place] # Baso # Seg Neutrophils % Seg Neuts % (Manual) Lymphocytes % (Manual) Monocytes % (Manual) Seg Neutrophils # Seg Neutrophils # Man Lymphocytes # (Manual) Monocytes # (Manual) Eosinophils # (Manual) Basophils # (Manual) PT INR APTT ABG pH ABG pO2 ABG HCO3 ABG O2 Saturation ABG Base Excess ABG Hemoglobin Oxyhemoglobin Sodium Potassium Chloride Carbon Dioxide BUN Creatinine Glucose POC Glucose 141 H 158 H 182 H Lactic Acid Calcium Ionized Calcium Phosphorus Magnesium Total Bilirubin AST ALT Alkaline Phosphatase Ammonia Total Creatine Kinase CK-MB (CK-2) CK-MB (CK-2) Rel Index Total Protein Albumin Urine WBC (Auto) Vancomycin Trough Salicylates Acetaminophen Plasma/Serum Alcohol Crossmatch 12/14/19 12/14/19 12/14/19 08:48 08:48 10:31 WBC 33.3 H RBC 2.70 L Hgb 7.9 L 8.0 L Hct 25.3 L 24.0 L MCH RDW 19.2 H Plt Count 476 H Lymph % (Auto) [place] % (Auto) [place] # Baso # Seg Neutrophils % Seg Neuts % (Manual) Lymphocytes % (Manual) Monocytes % (Manual) Seg Neutrophils # Seg Neutrophils # Man Lymphocytes # (Manual) Monocytes # (Manual) Eosinophils # (Manual) Basophils # (Manual) PT INR APTT ABG pH ABG pO2 ABG HCO3 ABG O2 Saturation ABG Base Excess ABG Hemoglobin Oxyhemoglobin Sodium 153 H Potassium 2.5 L* Chloride 114.9 H Carbon Dioxide 20 L BUN 38 H Creatinine 1.4 H Glucose 177 H POC Glucose Lactic Acid Calcium Ionized Calcium Phosphorus Magnesium Total Bilirubin AST ALT Alkaline Phosphatase Ammonia Total Creatine Kinase CK-MB (CK-2) CK-MB (CK-2) Rel Index Total Protein Albumin Urine WBC (Auto) Vancomycin Trough Salicylates Acetaminophen Plasma/Serum Alcohol Crossmatch 12/14/19 12/14/19 12/14/19 12:57 16:15 17:50 WBC RBC Hgb Hct MCH RDW Plt Count Lymph % (Auto) [place] % (Auto) [place] # Baso # Seg Neutrophils % Seg Neuts % (Manual) Lymphocytes % (Manual) Monocytes % (Manual) Seg Neutrophils # Seg Neutrophils # Man Lymphocytes # (Manual) Monocytes # (Manual) Eosinophils # (Manual) Basophils # (Manual) PT INR APTT ABG pH ABG pO2 73.6 L ABG HCO3 ABG O2 Saturation ABG Base Excess ABG Hemoglobin 7.6 L Oxyhemoglobin 94.0 L Sodium Potassium Chloride Carbon Dioxide BUN Creatinine Glucose POC Glucose 174 H 150 H Lactic Acid Calcium Ionized Calcium Phosphorus Magnesium Total Bilirubin AST ALT Alkaline Phosphatase Ammonia Total Creatine Kinase CK-MB (CK-2) CK-MB (CK-2) Rel Index Total Protein Albumin Urine WBC (Auto) Vancomycin Trough Salicylates Acetaminophen Plasma/Serum Alcohol Crossmatch 12/15/19 12/15/19 12/15/19 00:28 05:27 07:23 WBC 30.0 H RBC 3.11 L Hgb 8.6 L Hct 27.7 L MCH RDW 20.0 H Plt Count 473 H Lymph % (Auto) [place] % (Auto) [place] # Baso # Seg Neutrophils % Seg Neuts % (Manual) Lymphocytes % (Manual) Monocytes % (Manual) Seg Neutrophils # Seg Neutrophils # Man Lymphocytes # (Manual) Monocytes # (Manual) Eosinophils # (Manual) Basophils # (Manual) PT INR APTT ABG pH ABG pO2 ABG HCO3 ABG O2 Saturation ABG Base Excess ABG Hemoglobin Oxyhemoglobin Sodium Potassium Chloride Carbon Dioxide BUN Creatinine Glucose POC Glucose 167 H 148 H Lactic Acid Calcium Ionized Calcium Phosphorus Magnesium Total Bilirubin AST ALT Alkaline Phosphatase Ammonia Total Creatine Kinase CK-MB (CK-2) CK-MB (CK-2) Rel Index Total Protein Albumin Urine WBC (Auto) Vancomycin Trough Salicylates Acetaminophen Plasma/Serum Alcohol Crossmatch 12/15/19 12/15/19 12/15/19 07:23 12:21 17:41 WBC RBC Hgb Hct MCH RDW Plt Count Lymph % (Auto) [place] % (Auto) [place] # Baso # Seg Neutrophils % Seg Neuts % (Manual) Lymphocytes % (Manual) Monocytes % (Manual) Seg Neutrophils # Seg Neutrophils # Man Lymphocytes # (Manual) Monocytes # (Manual) Eosinophils # (Manual) Basophils # (Manual) PT INR APTT ABG pH ABG pO2 ABG HCO3 ABG O2 Saturation ABG Base Excess ABG Hemoglobin Oxyhemoglobin Sodium 147 H Potassium 3.5 L D Chloride 111.2 H Carbon Dioxide 19 L BUN 29 H Creatinine Glucose 126 H POC Glucose 154 H 144 H Lactic Acid Calcium Ionized Calcium Phosphorus Magnesium Total Bilirubin AST ALT Alkaline Phosphatase Ammonia Total Creatine Kinase CK-MB (CK-2) CK-MB (CK-2) Rel Index Total Protein Albumin Urine WBC (Auto) Vancomycin Trough Salicylates Acetaminophen Plasma/Serum Alcohol Crossmatch 12/16/19 12/16/19 12/16/19 00:22 05:30 05:44 WBC 30.8 H RBC 2.58 L Hgb 7.1 L Hct 22.7 L MCH RDW 19.6 H Plt Count 451 H Lymph % (Auto) [place] % (Auto) [place] # Baso # Seg Neutrophils % Seg Neuts % (Manual) Lymphocytes % (Manual) Monocytes % (Manual) Seg Neutrophils # Seg Neutrophils # Man Lymphocytes # (Manual) Monocytes # (Manual) Eosinophils # (Manual) Basophils # (Manual) PT INR APTT ABG pH ABG pO2 ABG HCO3 ABG O2 Saturation ABG Base Excess ABG Hemoglobin Oxyhemoglobin Sodium Potassium Chloride Carbon Dioxide BUN Creatinine Glucose POC Glucose 139 H 126 H Lactic Acid Calcium Ionized Calcium Phosphorus Magnesium Total Bilirubin AST ALT Alkaline Phosphatase Ammonia Total Creatine Kinase CK-MB (CK-2) CK-MB (CK-2) Rel Index Total Protein Albumin Urine WBC (Auto) Vancomycin Trough Salicylates Acetaminophen Plasma/Serum Alcohol Crossmatch 12/16/19 12/16/19 12/16/19 05:44 11:48 17:37 WBC RBC Hgb Hct MCH RDW Plt Count Lymph % (Auto) [place] % (Auto) [place] # Baso # Seg Neutrophils % Seg Neuts % (Manual) Lymphocytes % (Manual) Monocytes % (Manual) Seg Neutrophils # Seg Neutrophils # Man Lymphocytes # (Manual) Monocytes # (Manual) Eosinophils # (Manual) Basophils # (Manual) PT INR APTT ABG pH ABG pO2 ABG HCO3 ABG O2 Saturation ABG Base Excess ABG Hemoglobin Oxyhemoglobin Sodium Potassium 3.4 L Chloride 109.2 H Carbon Dioxide 19 L BUN 27 H Creatinine Glucose 124 H POC Glucose 125 H 148 H Lactic Acid Calcium Ionized Calcium Phosphorus Magnesium Total Bilirubin AST ALT Alkaline Phosphatase Ammonia Total Creatine Kinase CK-MB (CK-2) CK-MB (CK-2) Rel Index Total Protein Albumin Urine WBC (Auto) Vancomycin Trough Salicylates Acetaminophen Plasma/Serum Alcohol Crossmatch 12/16/19 12/17/19 12/17/19 23:43 05:28 12:47 WBC RBC Hgb Hct MCH RDW Plt Count Lymph % (Auto) [place] % (Auto) [place] # Baso # Seg Neutrophils % Seg Neuts % (Manual) Lymphocytes % (Manual) Monocytes % (Manual) Seg Neutrophils # Seg Neutrophils # Man Lymphocytes # (Manual) Monocytes # (Manual) Eosinophils # (Manual) Basophils # (Manual) PT INR APTT ABG pH ABG pO2 ABG HCO3 ABG O2 Saturation ABG Base Excess ABG Hemoglobin Oxyhemoglobin Sodium Potassium Chloride Carbon Dioxide BUN Creatinine Glucose POC Glucose 142 H 140 H 125 H Lactic Acid Calcium Ionized Calcium Phosphorus Magnesium Total Bilirubin AST ALT Alkaline Phosphatase Ammonia Total Creatine Kinase CK-MB (CK-2) CK-MB (CK-2) Rel Index Total Protein Albumin Urine WBC (Auto) Vancomycin Trough Salicylates Acetaminophen Plasma/Serum Alcohol Crossmatch 12/17/19 12/17/19 12/17/19 17:05 18:00 Unknown WBC RBC Hgb Hct MCH RDW Plt Count Lymph % (Auto) [place] % (Auto) [place] # Baso # Seg Neutrophils % Seg Neuts % (Manual) Lymphocytes % (Manual) Monocytes % (Manual) Seg Neutrophils # Seg Neutrophils # Man Lymphocytes # (Manual) Monocytes # (Manual) Eosinophils # (Manual) Basophils # (Manual) PT INR APTT ABG pH ABG pO2 68.1 L ABG HCO3 ABG O2 Saturation 93.7 L ABG Base Excess ABG Hemoglobin 5.0 L Oxyhemoglobin 91.7 L Sodium Potassium Chloride Carbon Dioxide BUN Creatinine Glucose POC Glucose 140 H Lactic Acid Calcium Ionized Calcium Phosphorus Magnesium Total Bilirubin AST ALT Alkaline Phosphatase Ammonia Total Creatine Kinase CK-MB (CK-2) CK-MB (CK-2) Rel Index Total Protein Albumin Urine WBC (Auto) Vancomycin Trough Salicylates Acetaminophen Plasma/Serum Alcohol Crossmatch 12/18/19 12/18/19 12/18/19 00:16 04:53 04:53 WBC 28.6 H RBC 2.27 L Hgb 6.3 L Hct 19.5 L* MCH RDW 20.0 H Plt Count 497 H Lymph % (Auto) [place] % (Auto) [place] # Baso # Seg Neutrophils % Seg Neuts % (Manual) Lymphocytes % (Manual) Monocytes % (Manual) Seg Neutrophils # Seg Neutrophils # Man Lymphocytes # (Manual) Monocytes # (Manual) Eosinophils # (Manual) Basophils # (Manual) PT INR APTT ABG pH ABG pO2 ABG HCO3 ABG O2 Saturation ABG Base Excess ABG Hemoglobin Oxyhemoglobin Sodium Potassium Chloride 107.9 H Carbon Dioxide 20 L BUN 27 H Creatinine 0.6 L Glucose 116 H POC Glucose 123 H Lactic Acid Calcium Ionized Calcium Phosphorus Magnesium Total Bilirubin AST ALT Alkaline Phosphatase Ammonia Total Creatine Kinase CK-MB (CK-2) CK-MB (CK-2) Rel Index Total Protein Albumin Urine WBC (Auto) Vancomycin Trough Salicylates Acetaminophen Plasma/Serum Alcohol Crossmatch 12/18/19 12/18/19 12/18/19 06:38 11:22 12:08 WBC RBC Hgb Hct MCH RDW Plt Count Lymph % (Auto) [place] % (Auto) [place] # Baso # Seg Neutrophils % Seg Neuts % (Manual) Lymphocytes % (Manual) Monocytes % (Manual) Seg Neutrophils # Seg Neutrophils # Man Lymphocytes # (Manual) Monocytes # (Manual) Eosinophils # (Manual) Basophils # (Manual) PT INR APTT ABG pH ABG pO2 ABG HCO3 ABG O2 Saturation ABG Base Excess ABG Hemoglobin Oxyhemoglobin Sodium Potassium Chloride Carbon Dioxide BUN Creatinine Glucose POC Glucose 120 H 127 H Lactic Acid Calcium Ionized Calcium Phosphorus Magnesium Total Bilirubin AST ALT Alkaline Phosphatase Ammonia Total Creatine Kinase CK-MB (CK-2) CK-MB (CK-2) Rel Index Total Protein Albumin Urine WBC (Auto) Vancomycin Trough Salicylates Acetaminophen Plasma/Serum Alcohol Crossmatch See Detail 12/18/19 12/18/19 12/18/19 14:05 17:49 23:53 WBC RBC Hgb Hct MCH RDW Plt Count Lymph % (Auto) [place] % (Auto) [place] # Baso # Seg Neutrophils % Seg Neuts % (Manual) Lymphocytes % (Manual) Monocytes % (Manual) Seg Neutrophils # Seg Neutrophils # Man Lymphocytes # (Manual) Monocytes # (Manual) Eosinophils # (Manual) Basophils # (Manual) PT INR APTT ABG pH 7.267 L ABG pO2 69.8 L ABG HCO3 ABG O2 Saturation 88.4 L ABG Base Excess ABG Hemoglobin 7.1 L Oxyhemoglobin 86.4 L Sodium Potassium Chloride Carbon Dioxide BUN Creatinine Glucose POC Glucose 157 H 128 H Lactic Acid Calcium Ionized Calcium Phosphorus Magnesium Total Bilirubin AST ALT Alkaline Phosphatase Ammonia Total Creatine Kinase CK-MB (CK-2) CK-MB (CK-2) Rel Index Total Protein Albumin Urine WBC (Auto) Vancomycin Trough Salicylates Acetaminophen Plasma/Serum Alcohol Crossmatch 12/19/19 12/19/19 12/19/19 03:37 03:37 05:25 WBC 31.3 H RBC 2.60 L Hgb 7.6 L Hct 23.0 L MCH RDW 19.4 H Plt Count 530 H Lymph % (Auto) [place] % (Auto) [place] # Baso # Seg Neutrophils % Seg Neuts % (Manual) Lymphocytes % (Manual) Monocytes % (Manual) Seg Neutrophils # Seg Neutrophils # Man Lymphocytes # (Manual) Monocytes # (Manual) Eosinophils # (Manual) Basophils # (Manual) PT INR APTT ABG pH ABG pO2 ABG HCO3 ABG O2 Saturation ABG Base Excess ABG Hemoglobin Oxyhemoglobin Sodium Potassium Chloride Carbon Dioxide 18 L BUN 36 H Creatinine Glucose 111 H POC Glucose 123 H Lactic Acid Calcium Ionized Calcium Phosphorus Magnesium Total Bilirubin AST ALT Alkaline Phosphatase Ammonia Total Creatine Kinase CK-MB (CK-2) CK-MB (CK-2) Rel Index Total Protein Albumin Urine WBC (Auto) Vancomycin Trough Salicylates Acetaminophen Plasma/Serum Alcohol Crossmatch 12/19/19 12/19/19 12/20/19 12:59 18:33 00:00 WBC RBC Hgb Hct MCH RDW Plt Count Lymph % (Auto) [place] % (Auto) [place] # Baso # Seg Neutrophils % Seg Neuts % (Manual) Lymphocytes % (Manual) Monocytes % (Manual) Seg Neutrophils # Seg Neutrophils # Man Lymphocytes # (Manual) Monocytes # (Manual) Eosinophils # (Manual) Basophils # (Manual) PT INR APTT ABG pH ABG pO2 ABG HCO3 ABG O2 Saturation ABG Base Excess ABG Hemoglobin Oxyhemoglobin Sodium Potassium Chloride Carbon Dioxide BUN Creatinine Glucose POC Glucose 130 H 118 H 135 H Lactic Acid Calcium Ionized Calcium Phosphorus Magnesium Total Bilirubin AST ALT Alkaline Phosphatase Ammonia Total Creatine Kinase CK-MB (CK-2) CK-MB (CK-2) Rel Index Total Protein Albumin Urine WBC (Auto) Vancomycin Trough Salicylates Acetaminophen Plasma/Serum Alcohol Crossmatch 12/20/19 12/20/19 12/20/19 05:46 12:31 18:07 WBC RBC Hgb Hct MCH RDW Plt Count Lymph % (Auto) [place] % (Auto) [place] # Baso # Seg Neutrophils % Seg Neuts % (Manual) Lymphocytes % (Manual) Monocytes % (Manual) Seg Neutrophils # Seg Neutrophils # Man Lymphocytes # (Manual) Monocytes # (Manual) Eosinophils # (Manual) Basophils # (Manual) PT INR APTT ABG pH ABG pO2 ABG HCO3 ABG O2 Saturation ABG Base Excess ABG Hemoglobin Oxyhemoglobin Sodium Potassium Chloride Carbon Dioxide BUN Creatinine Glucose POC Glucose 131 H 128 H 134 H Lactic Acid Calcium Ionized Calcium Phosphorus Magnesium Total Bilirubin AST ALT Alkaline Phosphatase Ammonia Total Creatine Kinase CK-MB (CK-2) CK-MB (CK-2) Rel Index Total Protein Albumin Urine WBC (Auto) Vancomycin Trough Salicylates Acetaminophen Plasma/Serum Alcohol Crossmatch 12/21/19 12/21/19 12/21/19 03:28 03:28 07:21 WBC 29.4 H RBC 2.30 L Hgb 6.8 L Hct 20.2 L MCH RDW 20.2 H Plt Count 746 H Lymph % (Auto) [place] % (Auto) [place] # Baso # Seg Neutrophils % Seg Neuts % (Manual) 85.0 H Lymphocytes % (Manual) 8.0 L Monocytes % (Manual) Seg Neutrophils # Seg Neutrophils # Man 25.0 H Lymphocytes # (Manual) Monocytes # (Manual) 1.5 H Eosinophils # (Manual) 0.6 H Basophils # (Manual) PT INR APTT ABG pH ABG pO2 ABG HCO3 ABG O2 Saturation ABG Base Excess ABG Hemoglobin Oxyhemoglobin Sodium Potassium Chloride Carbon Dioxide 17 L BUN 57 H Creatinine 1.4 H D Glucose POC Glucose 124 H Lactic Acid Calcium Ionized Calcium Phosphorus Magnesium Total Bilirubin AST ALT Alkaline Phosphatase Ammonia Total Creatine Kinase CK-MB (CK-2) CK-MB (CK-2) Rel Index Total Protein Albumin Urine WBC (Auto) Vancomycin Trough Salicylates Acetaminophen Plasma/Serum Alcohol Crossmatch 12/21/19 12/21/19 12/21/19 08:56 12:06 14:53 WBC RBC Hgb 7.2 L Hct 22.9 L MCH RDW Plt Count Lymph % (Auto) [place] % (Auto) [place] # Baso # Seg Neutrophils % Seg Neuts % (Manual) Lymphocytes % (Manual) Monocytes % (Manual) Seg Neutrophils # Seg Neutrophils # Man Lymphocytes # (Manual) Monocytes # (Manual) Eosinophils # (Manual) Basophils # (Manual) PT INR APTT ABG pH ABG pO2 ABG HCO3 ABG O2 Saturation ABG Base Excess ABG Hemoglobin Oxyhemoglobin Sodium Potassium Chloride Carbon Dioxide BUN Creatinine Glucose POC Glucose 116 H Lactic Acid Calcium Ionized Calcium Phosphorus Magnesium Total Bilirubin AST ALT Alkaline Phosphatase Ammonia Total Creatine Kinase CK-MB (CK-2) CK-MB (CK-2) Rel Index Total Protein Albumin Urine WBC (Auto) Vancomycin Trough 33.8 H Salicylates Acetaminophen Plasma/Serum Alcohol Crossmatch 12/21/19 12/21/19 12/21/19 14:54 17:27 23:49 WBC RBC Hgb Hct MCH RDW Plt Count Lymph % (Auto) [place] % (Auto) [place] # Baso # Seg Neutrophils % Seg Neuts % (Manual) Lymphocytes % (Manual) Monocytes % (Manual) Seg Neutrophils # Seg Neutrophils # Man Lymphocytes # (Manual) Monocytes # (Manual) Eosinophils # (Manual) Basophils # (Manual) PT INR APTT ABG pH ABG pO2 ABG HCO3 ABG O2 Saturation ABG Base Excess ABG Hemoglobin Oxyhemoglobin Sodium Potassium Chloride Carbon Dioxide BUN Creatinine Glucose POC Glucose 145 H 127 H Lactic Acid Calcium Ionized Calcium Phosphorus Magnesium Total Bilirubin AST ALT Alkaline Phosphatase Ammonia Total Creatine Kinase CK-MB (CK-2) CK-MB (CK-2) Rel Index Total Protein Albumin Urine WBC (Auto) Vancomycin Trough Salicylates Acetaminophen Plasma/Serum Alcohol Crossmatch See Detail 12/22/19 12/22/19 12/22/19 04:43 05:56 08:40 WBC RBC Hgb Hct MCH RDW Plt Count Lymph % (Auto) [place] % (Auto) [place] # Baso # Seg Neutrophils % Seg Neuts % (Manual) Lymphocytes % (Manual) Monocytes % (Manual) Seg Neutrophils # Seg Neutrophils # Man Lymphocytes # (Manual) Monocytes # (Manual) Eosinophils # (Manual) Basophils # (Manual) PT INR APTT ABG pH ABG pO2 75.6 L ABG HCO3 ABG O2 Saturation ABG Base Excess -2.6 L ABG Hemoglobin 6.8 L Oxyhemoglobin 94.6 L Sodium Potassium Chloride Carbon Dioxide 17 L BUN 60 H Creatinine 1.4 H Glucose 126 H POC Glucose 153 H Lactic Acid Calcium Ionized Calcium Phosphorus Magnesium Total Bilirubin AST ALT Alkaline Phosphatase Ammonia Total Creatine Kinase CK-MB (CK-2) CK-MB (CK-2) Rel Index Total Protein Albumin Urine WBC (Auto) Vancomycin Trough Salicylates Acetaminophen Plasma/Serum Alcohol Crossmatch 12/22/19 12/22/19 12/23/19 12:07 17:49 04:30 WBC 22.4 H RBC 2.68 L Hgb 7.6 L Hct 22.9 L MCH RDW 19.9 H Plt Count 998 H Lymph % (Auto) [place] % (Auto) [place] # Baso # Seg Neutrophils % Seg Neuts % (Manual) 88.0 H Lymphocytes % (Manual) 2.0 L Monocytes % (Manual) 9.0 H Seg Neutrophils # Seg Neutrophils # Man 19.7 H Lymphocytes # (Manual) 0.4 L Monocytes # (Manual) 2.0 H Eosinophils # (Manual) Basophils # (Manual) PT INR APTT ABG pH ABG pO2 ABG HCO3 ABG O2 Saturation ABG Base Excess ABG Hemoglobin Oxyhemoglobin Sodium Potassium Chloride Carbon Dioxide BUN Creatinine Glucose POC Glucose 140 H 116 H Lactic Acid Calcium Ionized Calcium Phosphorus Magnesium Total Bilirubin AST ALT Alkaline Phosphatase Ammonia Total Creatine Kinase CK-MB (CK-2) CK-MB (CK-2) Rel Index Total Protein Albumin Urine WBC (Auto) Vancomycin Trough Salicylates Acetaminophen Plasma/Serum Alcohol Crossmatch 12/23/19 12/23/19 12/23/19 04:30 12:00 18:06 WBC RBC Hgb Hct MCH RDW Plt Count Lymph % (Auto) [place] % (Auto) [place] # Baso # Seg Neutrophils % Seg Neuts % (Manual) Lymphocytes % (Manual) Monocytes % (Manual) Seg Neutrophils # Seg Neutrophils # Man Lymphocytes # (Manual) Monocytes # (Manual) Eosinophils # (Manual) Basophils # (Manual) PT INR APTT ABG pH ABG pO2 ABG HCO3 ABG O2 Saturation ABG Base Excess ABG Hemoglobin Oxyhemoglobin Sodium Potassium 5.2 H Chloride Carbon Dioxide 21 L BUN 69 H Creatinine 1.5 H Glucose 117 H POC Glucose 128 H 138 H Lactic Acid Calcium Ionized Calcium Phosphorus Magnesium Total Bilirubin AST ALT Alkaline Phosphatase Ammonia Total Creatine Kinase CK-MB (CK-2) CK-MB (CK-2) Rel Index Total Protein Albumin Urine WBC (Auto) Vancomycin Trough Salicylates Acetaminophen Plasma/Serum Alcohol Crossmatch 12/23/19 12/24/19 12/24/19 23:46 04:31 05:08 WBC RBC Hgb Hct MCH RDW Plt Count Lymph % (Auto) [place] % (Auto) [place] # Baso # Seg Neutrophils % Seg Neuts % (Manual) Lymphocytes % (Manual) Monocytes % (Manual) Seg Neutrophils # Seg Neutrophils # Man Lymphocytes # (Manual) Monocytes # (Manual) Eosinophils # (Manual) Basophils # (Manual) PT INR APTT ABG pH ABG pO2 ABG HCO3 ABG O2 Saturation ABG Base Excess ABG Hemoglobin Oxyhemoglobin Sodium Potassium 5.3 H Chloride 107.6 H Carbon Dioxide 20 L BUN 72 H Creatinine 1.6 H Glucose 120 H POC Glucose 120 H 140 H Lactic Acid Calcium Ionized Calcium Phosphorus Magnesium Total Bilirubin AST ALT Alkaline Phosphatase Ammonia Total Creatine Kinase CK-MB (CK-2) CK-MB (CK-2) Rel Index Total Protein Albumin Urine WBC (Auto) Vancomycin Trough Salicylates Acetaminophen Plasma/Serum Alcohol Crossmatch 12/24/19 12/24/19 12/25/19 11:58 17:49 03:47 WBC 36.2 H RBC 2.92 L Hgb 8.4 L Hct 26.1 L MCH RDW 20.2 H Plt Count 942 H Lymph % (Auto) [place] % (Auto) [place] # Baso # Seg Neutrophils % Seg Neuts % (Manual) 97.5 H Lymphocytes % (Manual) 1.0 L Monocytes % (Manual) Seg Neutrophils # Seg Neutrophils # Man 35.3 H Lymphocytes # (Manual) 0.4 L Monocytes # (Manual) Eosinophils # (Manual) Basophils # (Manual) PT INR APTT ABG pH ABG pO2 ABG HCO3 ABG O2 Saturation ABG Base Excess ABG Hemoglobin Oxyhemoglobin Sodium Potassium Chloride Carbon Dioxide BUN Creatinine Glucose POC Glucose 146 H 131 H Lactic Acid Calcium Ionized Calcium Phosphorus Magnesium Total Bilirubin AST ALT Alkaline Phosphatase Ammonia Total Creatine Kinase CK-MB (CK-2) CK-MB (CK-2) Rel Index Total Protein Albumin Urine WBC (Auto) Vancomycin Trough Salicylates Acetaminophen Plasma/Serum Alcohol Crossmatch 12/25/19 12/25/19 12/25/19 03:47 05:30 12:23 WBC RBC Hgb Hct MCH RDW Plt Count Lymph % (Auto) [place] % (Auto) [place] # Baso # Seg Neutrophils % Seg Neuts % (Manual) Lymphocytes % (Manual) Monocytes % (Manual) Seg Neutrophils # Seg Neutrophils # Man Lymphocytes # (Manual) Monocytes # (Manual) Eosinophils # (Manual) Basophils # (Manual) PT INR APTT ABG pH ABG pO2 ABG HCO3 ABG O2 Saturation ABG Base Excess ABG Hemoglobin Oxyhemoglobin Sodium Potassium Chloride Carbon Dioxide 15 L BUN 70 H Creatinine 1.7 H Glucose 153 H POC Glucose 169 H 135 H Lactic Acid Calcium Ionized Calcium Phosphorus Magnesium Total Bilirubin AST ALT Alkaline Phosphatase Ammonia Total Creatine Kinase CK-MB (CK-2) CK-MB (CK-2) Rel Index Total Protein Albumin Urine WBC (Auto) Vancomycin Trough Salicylates Acetaminophen Plasma/Serum Alcohol Crossmatch 12/25/19 12/25/19 12/26/19 17:37 23:29 09:47 WBC 22.1 H RBC 2.83 L Hgb 7.9 L Hct 25.5 L MCH RDW 20.0 H Plt Count 894 H Lymph % (Auto) [place] % (Auto) [place] # Baso # Seg Neutrophils % Seg Neuts % (Manual) Lymphocytes % (Manual) Monocytes % (Manual) Seg Neutrophils # Seg Neutrophils # Man Lymphocytes # (Manual) Monocytes # (Manual) Eosinophils # (Manual) Basophils # (Manual) PT INR APTT ABG pH ABG pO2 ABG HCO3 ABG O2 Saturation ABG Base Excess ABG Hemoglobin Oxyhemoglobin Sodium Potassium Chloride Carbon Dioxide BUN Creatinine Glucose POC Glucose 120 H 140 H Lactic Acid Calcium Ionized Calcium Phosphorus Magnesium Total Bilirubin AST ALT Alkaline Phosphatase Ammonia Total Creatine Kinase CK-MB (CK-2) CK-MB (CK-2) Rel Index Total Protein Albumin Urine WBC (Auto) Vancomycin Trough Salicylates Acetaminophen Plasma/Serum Alcohol Crossmatch 12/26/19 12/26/19 12/26/19 09:47 11:46 17:52 WBC RBC Hgb Hct MCH RDW Plt Count Lymph % (Auto) [place] % (Auto) [place] # Baso # Seg Neutrophils % Seg Neuts % (Manual) Lymphocytes % (Manual) Monocytes % (Manual) Seg Neutrophils # Seg Neutrophils # Man Lymphocytes # (Manual) Monocytes # (Manual) Eosinophils # (Manual) Basophils # (Manual) PT INR APTT ABG pH ABG pO2 ABG HCO3 ABG O2 Saturation ABG Base Excess ABG Hemoglobin Oxyhemoglobin Sodium Potassium Chloride Carbon Dioxide 18 L BUN 65 H Creatinine 1.4 H Glucose 132 H POC Glucose 110 H 145 H Lactic Acid Calcium Ionized Calcium Phosphorus Magnesium Total Bilirubin AST ALT Alkaline Phosphatase Ammonia Total Creatine Kinase CK-MB (CK-2) CK-MB (CK-2) Rel Index Total Protein Albumin Urine WBC (Auto) Vancomycin Trough Salicylates Acetaminophen Plasma/Serum Alcohol Crossmatch 12/27/19 12/27/19 12/27/19 00:01 03:42 03:42 WBC 18.0 H RBC 2.86 L Hgb 8.0 L Hct 25.2 L MCH RDW 19.2 H Plt Count 873 H Lymph % (Auto) 8.4 L [place] % (Auto) 7.5 H [place] # 1.4 H Baso # 0.2 H Seg Neutrophils % 82.2 H Seg Neuts % (Manual) Lymphocytes % (Manual) Monocytes % (Manual) Seg Neutrophils # 14.8 H Seg Neutrophils # Man Lymphocytes # (Manual) Monocytes # (Manual) Eosinophils # (Manual) Basophils # (Manual) PT INR APTT ABG pH ABG pO2 ABG HCO3 ABG O2 Saturation ABG Base Excess ABG Hemoglobin Oxyhemoglobin Sodium Potassium Chloride Carbon Dioxide BUN 73 H Creatinine 1.4 H Glucose 119 H POC Glucose 124 H Lactic Acid Calcium Ionized Calcium Phosphorus Magnesium Total Bilirubin AST ALT Alkaline Phosphatase Ammonia Total Creatine Kinase CK-MB (CK-2) CK-MB (CK-2) Rel Index Total Protein Albumin Urine WBC (Auto) Vancomycin Trough Salicylates Acetaminophen Plasma/Serum Alcohol Crossmatch 12/27/19 12/27/19 12/27/19 05:45 11:45 17:29 WBC RBC Hgb Hct MCH RDW Plt Count Lymph % (Auto) [place] % (Auto) [place] # Baso # Seg Neutrophils % Seg Neuts % (Manual) Lymphocytes % (Manual) Monocytes % (Manual) Seg Neutrophils # Seg Neutrophils # Man Lymphocytes # (Manual) Monocytes # (Manual) Eosinophils # (Manual) Basophils # (Manual) PT INR APTT ABG pH ABG pO2 ABG HCO3 ABG O2 Saturation ABG Base Excess ABG Hemoglobin Oxyhemoglobin Sodium Potassium Chloride Carbon Dioxide BUN Creatinine Glucose POC Glucose 131 H 123 H 134 H Lactic Acid Calcium Ionized Calcium Phosphorus Magnesium Total Bilirubin AST ALT Alkaline Phosphatase Ammonia Total Creatine Kinase CK-MB (CK-2) CK-MB (CK-2) Rel Index Total Protein Albumin Urine WBC (Auto) Vancomycin Trough Salicylates Acetaminophen Plasma/Serum Alcohol Crossmatch 12/28/19 12/28/19 12/28/19 00:12 05:14 11:53 WBC RBC Hgb Hct MCH RDW Plt Count Lymph % (Auto) [place] % (Auto) [place] # Baso # Seg Neutrophils % Seg Neuts % (Manual) Lymphocytes % (Manual) Monocytes % (Manual) Seg Neutrophils # Seg Neutrophils # Man Lymphocytes # (Manual) Monocytes # (Manual) Eosinophils # (Manual) Basophils # (Manual) PT INR APTT ABG pH ABG pO2 ABG HCO3 ABG O2 Saturation ABG Base Excess ABG Hemoglobin Oxyhemoglobin Sodium Potassium Chloride Carbon Dioxide BUN Creatinine Glucose POC Glucose 138 H 130 H 146 H Lactic Acid Calcium Ionized Calcium Phosphorus Magnesium Total Bilirubin AST ALT Alkaline Phosphatase Ammonia Total Creatine Kinase CK-MB (CK-2) CK-MB (CK-2) Rel Index Total Protein Albumin Urine WBC (Auto) Vancomycin Trough Salicylates Acetaminophen Plasma/Serum Alcohol Crossmatch 12/28/19 12/29/19 12/29/19 17:39 00:01 18:11 WBC RBC Hgb Hct MCH RDW Plt Count Lymph % (Auto) [place] % (Auto) [place] # Baso # Seg Neutrophils % Seg Neuts % (Manual) Lymphocytes % (Manual) Monocytes % (Manual) Seg Neutrophils # Seg Neutrophils # Man Lymphocytes # (Manual) Monocytes # (Manual) Eosinophils # (Manual) Basophils # (Manual) PT INR APTT ABG pH ABG pO2 ABG HCO3 ABG O2 Saturation ABG Base Excess ABG Hemoglobin Oxyhemoglobin Sodium Potassium Chloride Carbon Dioxide BUN Creatinine Glucose POC Glucose 117 H 139 H 130 H Lactic Acid Calcium Ionized Calcium Phosphorus Magnesium Total Bilirubin AST ALT Alkaline Phosphatase Ammonia Total Creatine Kinase CK-MB (CK-2) CK-MB (CK-2) Rel Index Total Protein Albumin Urine WBC (Auto) Vancomycin Trough Salicylates Acetaminophen Plasma/Serum Alcohol Crossmatch 12/29/19 12/30/19 12/30/19 23:09 00:02 01:06 WBC 16.7 H RBC 2.91 L Hgb 8.2 L Hct 25.4 L MCH RDW 18.7 H Plt Count 708 H Lymph % (Auto) 9.4 L [place] % (Auto) [place] # 0.9 H Baso # Seg Neutrophils % 83.5 H Seg Neuts % (Manual) Lymphocytes % (Manual) Monocytes % (Manual) Seg Neutrophils # 14.0 H Seg Neutrophils # Man Lymphocytes # (Manual) Monocytes # (Manual) Eosinophils # (Manual) Basophils # (Manual) PT INR APTT ABG pH ABG pO2 ABG HCO3 ABG O2 Saturation ABG Base Excess ABG Hemoglobin Oxyhemoglobin Sodium Potassium Chloride Carbon Dioxide BUN Creatinine Glucose POC Glucose 120 H 114 H Lactic Acid Calcium Ionized Calcium Phosphorus Magnesium Total Bilirubin AST ALT Alkaline Phosphatase Ammonia Total Creatine Kinase CK-MB (CK-2) CK-MB (CK-2) Rel Index Total Protein Albumin Urine WBC (Auto) Vancomycin Trough Salicylates Acetaminophen Plasma/Serum Alcohol Crossmatch 12/30/19 12/30/19 12/30/19 01:06 04:23 05:18 WBC RBC Hgb Hct MCH RDW Plt Count Lymph % (Auto) [place] % (Auto) [place] # Baso # Seg Neutrophils % Seg Neuts % (Manual) Lymphocytes % (Manual) Monocytes % (Manual) Seg Neutrophils # Seg Neutrophils # Man Lymphocytes # (Manual) Monocytes # (Manual) Eosinophils # (Manual) Basophils # (Manual) PT INR APTT ABG pH ABG pO2 ABG HCO3 ABG O2 Saturation ABG Base Excess ABG Hemoglobin 8.3 L Oxyhemoglobin Sodium Potassium Chloride Carbon Dioxide BUN 70 H Creatinine Glucose 122 H POC Glucose 130 H Lactic Acid Calcium Ionized Calcium Phosphorus Magnesium Total Bilirubin AST ALT Alkaline Phosphatase Ammonia Total Creatine Kinase CK-MB (CK-2) CK-MB (CK-2) Rel Index Total Protein Albumin Urine WBC (Auto) Vancomycin Trough Salicylates Acetaminophen Plasma/Serum Alcohol Crossmatch 12/30/19 12/30/19 12/30/19 05:40 12:17 17:43 WBC RBC Hgb Hct MCH RDW Plt Count Lymph % (Auto) [place] % (Auto) [place] # Baso # Seg Neutrophils % Seg Neuts % (Manual) Lymphocytes % (Manual) Monocytes % (Manual) Seg Neutrophils # Seg Neutrophils # Man Lymphocytes # (Manual) Monocytes # (Manual) Eosinophils # (Manual) Basophils # (Manual) PT INR APTT ABG pH ABG pO2 ABG HCO3 ABG O2 Saturation ABG Base Excess ABG Hemoglobin Oxyhemoglobin Sodium Potassium Chloride Carbon Dioxide BUN Creatinine Glucose POC Glucose 135 H 132 H 118 H Lactic Acid Calcium Ionized Calcium Phosphorus Magnesium Total Bilirubin AST ALT Alkaline Phosphatase Ammonia Total Creatine Kinase CK-MB (CK-2) CK-MB (CK-2) Rel Index Total Protein Albumin Urine WBC (Auto) Vancomycin Trough Salicylates Acetaminophen Plasma/Serum Alcohol Crossmatch 12/30/19 12/31/19 12/31/19 23:29 05:19 17:50 WBC RBC Hgb Hct MCH RDW Plt Count Lymph % (Auto) [place] % (Auto) [place] # Baso # Seg Neutrophils % Seg Neuts % (Manual) Lymphocytes % (Manual) Monocytes % (Manual) Seg Neutrophils # Seg Neutrophils # Man Lymphocytes # (Manual) Monocytes # (Manual) Eosinophils # (Manual) Basophils # (Manual) PT INR APTT ABG pH ABG pO2 ABG HCO3 ABG O2 Saturation ABG Base Excess ABG Hemoglobin Oxyhemoglobin Sodium Potassium Chloride Carbon Dioxide BUN Creatinine Glucose POC Glucose 114 H 109 H 116 H Lactic Acid Calcium Ionized Calcium Phosphorus Magnesium Total Bilirubin AST ALT Alkaline Phosphatase Ammonia Total Creatine Kinase CK-MB (CK-2) CK-MB (CK-2) Rel Index Total Protein Albumin Urine WBC (Auto) Vancomycin Trough Salicylates Acetaminophen Plasma/Serum Alcohol Crossmatch 01/01/20 01/01/20 01/01/20 00:10 05:19 12:02 WBC RBC Hgb Hct MCH RDW Plt Count Lymph % (Auto) [place] % (Auto) [place] # Baso # Seg Neutrophils % Seg Neuts % (Manual) Lymphocytes % (Manual) Monocytes % (Manual) Seg Neutrophils # Seg Neutrophils # Man Lymphocytes # (Manual) Monocytes # (Manual) Eosinophils # (Manual) Basophils # (Manual) PT INR APTT ABG pH ABG pO2 ABG HCO3 ABG O2 Saturation ABG Base Excess ABG Hemoglobin Oxyhemoglobin Sodium Potassium Chloride Carbon Dioxide BUN Creatinine Glucose POC Glucose 131 H 122 H 136 H Lactic Acid Calcium Ionized Calcium Phosphorus Magnesium Total Bilirubin AST ALT Alkaline Phosphatase Ammonia Total Creatine Kinase CK-MB (CK-2) CK-MB (CK-2) Rel Index Total Protein Albumin Urine WBC (Auto) Vancomycin Trough Salicylates Acetaminophen Plasma/Serum Alcohol Crossmatch 01/02/20 01/02/20 01/02/20 00:24 05:36 11:41 WBC RBC Hgb Hct MCH RDW Plt Count Lymph % (Auto) [place] % (Auto) [place] # Baso # Seg Neutrophils % Seg Neuts % (Manual) Lymphocytes % (Manual) Monocytes % (Manual) Seg Neutrophils # Seg Neutrophils # Man Lymphocytes # (Manual) Monocytes # (Manual) Eosinophils # (Manual) Basophils # (Manual) PT INR APTT ABG pH ABG pO2 ABG HCO3 ABG O2 Saturation ABG Base Excess ABG Hemoglobin Oxyhemoglobin Sodium Potassium Chloride Carbon Dioxide BUN Creatinine Glucose POC Glucose 119 H 109 H 125 H Lactic Acid Calcium Ionized Calcium Phosphorus Magnesium Total Bilirubin AST ALT Alkaline Phosphatase Ammonia Total Creatine Kinase CK-MB (CK-2) CK-MB (CK-2) Rel Index Total Protein Albumin Urine WBC (Auto) Vancomycin Trough Salicylates Acetaminophen Plasma/Serum Alcohol Crossmatch 01/02/20 01/03/2020 17:49 05:29 12:13 WBC RBC Hgb Hct MCH RDW Plt Count Lymph % (Auto) [place] % (Auto) [place] # Baso # Seg Neutrophils % Seg Neuts % (Manual) Lymphocytes % (Manual) Monocytes % (Manual) Seg Neutrophils # Seg Neutrophils # Man Lymphocytes # (Manual) Monocytes # (Manual) Eosinophils # (Manual) Basophils # (Manual) PT INR APTT ABG pH ABG pO2 ABG HCO3 ABG O2 Saturation ABG Base Excess ABG Hemoglobin Oxyhemoglobin Sodium Potassium Chloride Carbon Dioxide BUN Creatinine Glucose POC Glucose 130 H 132 H 113 H Lactic Acid Calcium Ionized Calcium Phosphorus Magnesium Total Bilirubin AST ALT Alkaline Phosphatase Ammonia Total Creatine Kinase CK-MB (CK-2) CK-MB (CK-2) Rel Index Total Protein Albumin Urine WBC (Auto) Vancomycin Trough Salicylates Acetaminophen Plasma/Serum Alcohol Crossmatch 01/03/20 01/04/20 01/04/20 17:32 00:19 05:26 WBC RBC Hgb Hct MCH RDW Plt Count Lymph % (Auto) [place] % (Auto) [place] # Baso # Seg Neutrophils % Seg Neuts % (Manual) Lymphocytes % (Manual) Monocytes % (Manual) Seg Neutrophils # Seg Neutrophils # Man Lymphocytes # (Manual) Monocytes # (Manual) Eosinophils # (Manual) Basophils # (Manual) PT INR APTT ABG pH ABG pO2 ABG HCO3 ABG O2 Saturation ABG Base Excess ABG Hemoglobin Oxyhemoglobin Sodium Potassium Chloride Carbon Dioxide BUN Creatinine Glucose POC Glucose 127 H 141 H 129 H Lactic Acid Calcium Ionized Calcium Phosphorus Magnesium Total Bilirubin AST ALT Alkaline Phosphatase Ammonia Total Creatine Kinase CK-MB (CK-2) CK-MB (CK-2) Rel Index Total Protein Albumin Urine WBC (Auto) Vancomycin Trough Salicylates Acetaminophen Plasma/Serum Alcohol Crossmatch 01/04/20 01/04/20 01/05/20 11:39 17:29 05:22 WBC RBC Hgb Hct MCH RDW Plt Count Lymph % (Auto) [place] % (Auto) [place] # Baso # Seg Neutrophils % Seg Neuts % (Manual) Lymphocytes % (Manual) Monocytes % (Manual) Seg Neutrophils # Seg Neutrophils # Man Lymphocytes # (Manual) Monocytes # (Manual) Eosinophils # (Manual) Basophils # (Manual) PT INR APTT ABG pH ABG pO2 ABG HCO3 ABG O2 Saturation ABG Base Excess ABG Hemoglobin Oxyhemoglobin Sodium Potassium Chloride Carbon Dioxide BUN Creatinine Glucose POC Glucose 167 H 132 H 121 H Lactic Acid Calcium Ionized Calcium Phosphorus Magnesium Total Bilirubin AST ALT Alkaline Phosphatase Ammonia Total Creatine Kinase CK-MB (CK-2) CK-MB (CK-2) Rel Index Total Protein Albumin Urine WBC (Auto) Vancomycin Trough Salicylates Acetaminophen Plasma/Serum Alcohol Crossmatch 01/05/20 12:25 WBC RBC Hgb Hct MCH RDW Plt Count Lymph % (Auto) [place] % (Auto) [place] # Baso # Seg Neutrophils % Seg Neuts % (Manual) Lymphocytes % (Manual) Monocytes % (Manual) Seg Neutrophils # Seg Neutrophils # Man Lymphocytes # (Manual) Monocytes # (Manual) Eosinophils # (Manual) Basophils # (Manual) PT INR APTT ABG pH ABG pO2 ABG HCO3 ABG O2 Saturation ABG Base Excess ABG Hemoglobin Oxyhemoglobin Sodium Potassium Chloride Carbon Dioxide BUN Creatinine Glucose POC Glucose 106 H Lactic Acid Calcium Ionized Calcium Phosphorus Magnesium Total Bilirubin AST ALT Alkaline Phosphatase Ammonia Total Creatine Kinase CK-MB (CK-2) CK-MB (CK-2) Rel Index Total Protein Albumin Urine WBC (Auto) Vancomycin Trough Salicylates Acetaminophen Plasma/Serum Alcohol Crossmatch Allied health notes reviewed: nursing
[2020-01-05] MEDS: SCOPOLAMINE TRANSDERMAL PATCH 72 HR TD SCH (15:11)
[2020-01-05 18:18] LABS: ABG Base Excess 1.1 mmol/L (-2.0-3.0); ABG HCO3 24.6 mmol/L (20.0-26.0); ABG Methemoglobin 0.4 % (0.0-1.5); ABG Oxygen Saturation 97.8 % (95.0-99.0); ABG PCO2 34.5 mm Hg; ABG PH 7.472 pH Units (7.350-7.450); ABG PO2 99.2 mm Hg (80.0-90.0)
[2020-01-05] MEDS: QUEtiapine 100 MG TAB PO SCH (21:16)
[2020-01-06] MEDS: GLYCOPYRROLATE 1 MG TAB PO SCH ×3 (08:43→21:03)
[2020-01-06] MEDS: hydrOXYzine PAMOATE 25 MG CAP PO SCH ×2 (09:00→21:03)
[2020-01-06] MEDS: LANSOPRAZOLE 30 MG SOLUTAB FEEDTUBE SCH (09:00)
[2020-01-06] MEDS: MIRTAZAPINE 30 MG TAB PO SCH (09:00)
[2020-01-06] MEDS: QUEtiapine 200 MG TAB PO SCH (09:00)
[2020-01-06] MEDS: TAMSULOSIN 0.4 MG CAP PO SCH (09:00)
[2020-01-06] MEDS: SERTRALINE 50 MG TAB PO SCH (09:01)
[2020-01-06] MEDS: levETIRAcetam 500 MG/5 ML ORAL LIQD PO SCH ×2 (09:01→21:03)
[2020-01-06] MEDS: ONDANSETRON 4 MG/2 ML INJ IV PRN (10:53)
--- NOTE | 2020-01-06 13:47 | Progress Note ---
Assessment and Plan / Anoxic brain injury: suspected CT head: No acute abnormality. neurology consult placed, EEG ordered showed Generalized slowing. No seizures or epileptiform activity. Per neurology : Patient found to have intact corneal/VOR/cough reflexes, and is withdrawing lower extremities, therefore patient is not found to be brain . However, given that patient had an out of hospital cardiac arrest, the [facility] is uncertain, the likelihood of meaningful neurological recovery is somewhat low. -Patient now opening her eyes but does not follow any command or move any extremities /Acute Respiratory failure -s/p intubation, s/p trach and PEG on 12/12 with mechanical ventilation - CTA was done and negative for PE, - Echo quality is poor, showed diastolic dysfunction - continue ICU monitoring - wean OFF vent/O2 as tolerated /Anemia, microcytic -Continue to hold heparin, transfused 2 units of packed RBC -ordered stool for occult blood - pending /Acute metabolic encephalopathy/toxic encephalopathy due to the above - cont supportive care /Hyperammonemia - likely from liver disease related to EtOH abuse - Patient had elevated ammonia level and treated with lactulose /Metabolic Acidosis -Alcohol ketoacidosis vs hypoprofusion -Continue to monitor /ELevated LFTs, stable now - due to ischemic hepatitis. /Leucocytosis with sepsis - Source MRSA bacteremia and MSSA pneumonia. UA showed pyuria. RUQ US showed no ascites. - Repeat TTE negative for vegetation. Completed 7 days of Ceftriaxone on 11/29/2019. -Treated with Abx vancomycin 1 gm IV q 12 hour total 2 week till 12/30/2019 /MSSA pneumonia: Status post vancomycin till 12/30/2019 /ALcohol USe Disorder - given ongoing Alcohol use almost daily, s/p IV Thiamine - monitor /Severe hypokalemia -Repleted /Seizure disorder: treat with Keppra /H. Influenzae, tracheobronchitis, treated with abx DNR, Very poor prognosis The high probability of a clinically significant, sudden or life threatening deterioration of the [neurology,respiratory] system(s) required my full and direct attention, intervention and personal management. The aggregate critical care time was [32] minutes. This time is in addition to time spent performing reported procedures but includes the following: [x] Data Review and interpretation [x] Patient assessment and monitoring of vital signs [x] Documentation [x] Medication orders and management Disposition: prognosis poor. Family okay for DNR, placement pending 12/31/19: still intubated via trach, no restraints needed, FiO2 30%, PEEP 6, Difficulty getting to Hospice, mother wants to kept updated. Patient has 4 kids, 2 sons in fdc, 1 son is transgender and not involved per mother; Daughter is Deborah who is NOK 01/01/20: Still intubated, but patient opening her eyes but does not follow any command. Unable to set up inpatient hospice 01/01 pending placement, patient is self funded 01/02 pending placement, patient is self funded 01/03 pending placement, patient is self funded. still on vent. updated patient's mother 01/04 pending placement, patient is self funded. still on vent. Brief History: 54-year-old female with a past medical history of Hypertension, Depression, Tobacco use Disorder, Alcohol use Disorder as confirmed by Daughter and pt's mother presents to the hospital status post cardiac arrest at home. EMS found pt in [place]. They were unable to intubate patient with a ET tube because she was clenching down therefore Joe airway placed. Per the ED physician who evaluated pt, Patient presented with a pulse, intermittent respirations, and bagging support via Joe airway with O2 sat of 100%. Accu-Chek of 71 obtained by EMS. She was intubated in the ER and called for admission. Following admission patient was diagnosed with anoxic brain injury, sepsis with MRSA bacteremia and MSSA pneumonia, alcoholic liver disease. Family member wished for full code, patient currently getting treated with IV antibiotics for sepsis, status post trach and PEG on 12/13/19. Subjective Date of service: 01/05/20 Principal diagnosis: Ac cardiopulmonary arrest; Ac hypoxemic resp failure; Acute encephalopathy Interval history: Patient seen and examined remained on mechanical ventilation with trach, can open her eyes patient now DNR Discussed with RN at bedside, discussed with case worker for disposition planning Tolerating tube feeding with PEG tube, needs placement/hospice - uninsured Objective - Exam Narrative Exam: General appearance: Present: other (on vent, elderly female, open eyes) - EENT Eyes: no scleral icterus, no conjunctival injection, pupil not reactive ENT: clear oral mucosa, dentition normal, no oropharyngeal erythema Ears: bilateral: normal - Neck Neck: trach on place - Respiratory Respiratory effort: other (on vent) Respiratory: bilateral: rales - Cardiovascular Rhythm: regular Heart Sounds: Present: S1 & S2. Absent: gallop, rub Extremities: pulses intact, No edema, normal color - Gastrointestinal General gastrointestinal: Present: soft, non-tender, non-distended, normal bowel sounds - Integumentary Integumentary: clear, warm, dry - Musculoskeletal Musculoskeletal: does not respond to commend - Neurologic Neurologic: other (intubated with trach and 2+ reflexes throughout). Does not follow commands or move extremities - Psychiatric Psychiatric: no appropriate mood/affect, no intact judgment & insight, no memory intact - Constitutional Vitals: Vital Signs - 12hr 01/06/20 01/06/20 01/06/20 02:00 02:50 03:00 Temperature 98.7 F Pulse Rate 110 H 104 H Pulse Rate [ From Monitor] Respiratory 24 24 Rate Respiratory Rate [Bilateral Foot] Blood Pressure 127/83 138/91 O2 Sat by Pulse 100 100 Oximetry 01/06/20 01/06/20 01/06/20 04:00 04:41 05:00 Temperature Pulse Rate 102 H 106 H 104 H Pulse Rate [ 109 H From Monitor] Respiratory 24 24 Rate Respiratory Rate [Bilateral Foot] Blood Pressure 135/95 135/95 134/90 O2 Sat by Pulse 100 100 100 Oximetry 01/06/20 01/06/20 01/06/20 06:00 07:00 08:00 Temperature 98.4 F Pulse Rate 102 H 95 H 103 H Pulse Rate [ 100 H From Monitor] Respiratory 24 24 26 H Rate Respiratory Rate [Bilateral Foot] Blood Pressure 128/84 132/93 124/86 O2 Sat by Pulse 100 100 100 Oximetry 01/06/20 01/06/20 01/06/20 09:00 10:00 10:41 Temperature Pulse Rate 108 H 103 H 103 H Pulse Rate [ From Monitor] Respiratory 23 24 Rate Respiratory 24 Rate [Bilateral Foot] Blood Pressure 123/83 152/93 124/86 O2 Sat by Pulse 100 100 100 Oximetry 01/06/20 01/06/20 11:00 12:00 Temperature 98.5 F Pulse Rate 114 H Pulse Rate [ From Monitor] Respiratory 21 Rate Respiratory Rate [Bilateral Foot] Blood Pressure 161/97 O2 Sat by Pulse 99 Oximetry - Labs CBC & Chem 7: 12/30/19 01:06 12/30/19 01:06 Labs: Abnormal lab results 01/05/20 01/05/2020 Range/Units 17:40 18:06 00:11 ABG pH 7.472 H (7.350-7.450) pH Units ABG pO2 99.2 H (80.0-90.0) mm Hg ABG Hemoglobin 7.8 L (12.0-16.0) gm/dl POC Glucose 110 H 108 H (70-105) 01/06/20 01/06/20 Range/Units 05:16 11:30 ABG pH (7.350-7.450) pH Units ABG pO2 (80.0-90.0) mm Hg ABG Hemoglobin (12.0-16.0) gm/dl POC Glucose 124 H 125 H (70-105)
--- NOTE | 2020-01-06 13:48 | Progress Note ---
Assessment and Plan / Anoxic brain injury: suspected CT head: No acute abnormality. neurology consult placed, EEG ordered showed Generalized slowing. No seizures or epileptiform activity. Per neurology : Patient found to have intact corneal/VOR/cough reflexes, and is withdrawing lower extremities, therefore patient is not found to be brain . However, given that patient had an [facility] cardiac [facility], [facility], the likelihood of meaningful neurological recovery is somewhat low. -Patient now opening her eyes but does not follow any command or move any extremities /Acute Respiratory failure -s/p intubation, s/p trach and PEG on 12/12 with mechanical ventilation - CTA was done and negative for PE, - Echo quality is poor, showed diastolic dysfunction - continue ICU monitoring - wean OFF O2 as tolerated, placed on T-piece today /Anemia, microcytic -Continue to hold heparin, transfused 2 units of packed RBC -ordered stool for occult blood - pending /Acute metabolic encephalopathy/toxic encephalopathy due to the above - cont supportive care /Hyperammonemia - likely from liver disease related to EtOH abuse - Patient had elevated ammonia level and treated with lactulose /Metabolic Acidosis -Alcohol ketoacidosis vs hypoprofusion -Continue to monitor /ELevated LFTs, stable now - due to ischemic hepatitis. /Leucocytosis with sepsis - Source MRSA bacteremia and MSSA pneumonia. UA showed pyuria. RUQ US showed no ascites. - Repeat TTE negative for vegetation. Completed 7 days of Ceftriaxone on 11/29/2019. -Treated with Abx vancomycin 1 gm IV q 12 hour total 2 week till 12/30/2019 /MSSA pneumonia: Status post vancomycin till 12/30/2019 /ALcohol USe Disorder - given ongoing Alcohol use almost daily, s/p IV Thiamine - monitor /Severe hypokalemia -Repleted /Seizure disorder: treat with Keppra /H. Influenzae, tracheobronchitis, treated with abx DNR, Very poor prognosis The high probability of a clinically significant, sudden or life threatening deterioration of the [neurology,respiratory] system(s) required my full and direct attention, intervention and personal management. The aggregate critical care time was [32] minutes. This time is in addition to time spent performing reported procedures but includes the following: [x] Data Review and interpretation [x] Patient assessment and monitoring of vital signs [x] Documentation [x] Medication orders and management Disposition: prognosis guarded. Family okay for DNR, placement pending 12/31/19: still intubated via trach, no restraints needed, FiO2 30%, PEEP 6, Difficulty getting to Hospice, mother wants to kept updated. Patient has 4 kids, 2 sons in group home, 1 son is transgender and not involved per mother; Daughter is Deborah who is NOK 01/01/20: Still intubated, but patient opening her eyes but does not follow any command. Unable to set up inpatient hospice 01/01 pending placement, patient is self funded 01/02 pending placement, patient is self funded 01/03 pending placement, patient is self funded. still on vent. updated patient's mother 01/04 pending placement, patient is self funded. still on vent. 01/05 pending placement, patient is tolerating T-piece today -off vent. Brief History: 54-year-old female with a past medical history of Hypertension, Depression, Tobacco use Disorder, Alcohol use Disorder as confirmed by Daughter and pt's mother presents to the hospital status post cardiac arrest at home. EMS found pt in [place]. They were unable to intubate patient with a ET tube because she was clenching down therefore Joe airway placed. Per the ED physician who evaluated pt, Patient presented with a pulse, intermittent respirations, and bagging support via Joe airway with O2 sat of 100%. Accu-Chek of 71 obtained by EMS. She was intubated in the ER and called for admission. Following admission anthony barrios was diagnosed with anoxic brain injury, sepsis with MRSA bacteremia and MSSA pneumonia, alcoholic liver disease. Family member wished for full code, patient currently getting treated with IV antibiotics for sepsis, status post trach and PEG on 12/13/19. She gradually weaned off from vent now on T-piece. Patient is uninsured, waiting for placement, guarded prognosis. Subjective Date of service: 01/06/20 Principal diagnosis: Ac cardiopulmonary arrest; Ac hypoxemic resp failure; Acute encephalopathy Interval history: Patient seen and examined Can open her eyes, patient now DNR Discussed with RN at bedside, discussed with case monitor for disposition planning Tolerating tube feeding with PEG tube, needs placement/hospice - uninsured Patient placed on T-piece today Objective - Exam Narrative Exam: General appearance: Present: other (on vent, elderly female, open eyes) - EENT Eyes: no scleral icterus, no conjunctival injection, pupil not reactive ENT: clear oral mucosa, dentition normal, no oropharyngeal erythema Ears: bilateral: normal - Neck Neck: trach on place - Respiratory Respiratory effort: other (on vent) Respiratory: bilateral: rales - Cardiovascular Rhythm: regular Heart Sounds: Present: S1 & S2. Absent: gallop, rub Extremities: pulses intact, No edema, normal color - Gastrointestinal General gastrointestinal: Present: soft, non-tender, non-distended, normal bowel sounds - Integumentary Integumentary: clear, warm, dry - Musculoskeletal Musculoskeletal: does not respond to commend - Neurologic Neurologic: other (intubated with trach and 2+ reflexes throughout). Does not follow commands or move extremities - Psychiatric Psychiatric: no appropriate mood/affect, no intact judgment & insight, no memory intact - Constitutional Vitals: Vital Signs - 12hr 01/06/20 01/06/20 01/06/20 02:00 02:50 03:00 Temperature 98.7 F Pulse Rate 110 H 104 H Pulse Rate [ From Monitor] Respiratory 24 24 Rate Respiratory Rate [Bilateral Foot] Blood Pressure 127/83 138/91 O2 Sat by Pulse 100 100 Oximetry 01/06/20 01/06/20 01/06/20 04:00 04:41 05:00 Temperature Pulse Rate 102 H 106 H 104 H Pulse Rate [ 109 H From Monitor] Respiratory 24 24 Rate Respiratory Rate [Bilateral Foot] Blood Pressure 135/95 135/95 134/90 O2 Sat by Pulse 100 100 100 Oximetry 01/06/20 01/06/20 01/06/20 06:00 07:00 08:00 Temperature 98.4 F Pulse Rate 102 H 95 H 103 H Pulse Rate [ 100 H From Monitor] Respiratory 24 24 26 H Rate Respiratory Rate [Bilateral Foot] Blood Pressure 128/84 132/93 124/86 O2 Sat by Pulse 100 100 100 Oximetry 01/06/20 01/06/20 01/06/20 09:00 10:00 10:41 Temperature Pulse Rate 108 H 103 H 103 H Pulse Rate [ From Monitor] Respiratory 23 24 Rate Respiratory 24 Rate [Bilateral Foot] Blood Pressure 123/83 152/93 124/86 O2 Sat by Pulse 100 100 100 Oximetry 01/06/20 01/06/20 11:00 12:00 Temperature 98.5 F Pulse Rate 114 H Pulse Rate [ From Monitor] Respiratory 21 Rate Respiratory Rate [Bilateral Foot] Blood Pressure 161/97 O2 Sat by Pulse 99 Oximetry - Labs CBC & Chem 7: 01/07/20 04:12 01/07/20 04:12 Labs: Abnormal lab results 01/05/20 01/05/20 01/06/20 Range/Units 17:40 18:06 00:11 ABG pH 7.472 H (7.350-7.450) pH Units ABG pO2 99.2 H (80.0-90.0) mm Hg ABG Hemoglobin 7.8 L (12.0-16.0) gm/dl POC Glucose 110 H 108 H (70-105) 01/06/20 01/06/20 Range/Units 05:16 11:30 ABG pH (7.350-7.450) pH Units ABG pO2 (80.0-90.0) mm Hg ABG Hemoglobin (12.0-16.0) gm/dl POC Glucose 124 H 125 H (70-105)
--- NOTE | 2020-01-06 14:38 | Progress Note ---
Assessment and Plan Acute cardiopulmonary arrest with ROSC Acute hypoxemic respiratory failure on MVS Acute metabolic-toxic encephalopathy Metabolic acidosis/alcoholic acidosis/Lactic acidosis Ischemic hepatitis Leucocytosis with lactic acidosis Tobacco use disorder ALcohol use Disorder Hypokalemia High grade fevers - continue daytime T-piece trials as tolerated - continue to rest on AC for now - no new issues; continue care as below otherwise - repeat CXR prn at this point - continue daily SAT's and assessment for readiness for SBT (For PSV trial today) - Continue to wean supplemental oxygen for target O2 sat's > 90% - continue to rest on AC mode qhs - VAP bundle addressed (continue aspiration precautions, HOB > 40) - continue bronchodilators with routine trach care and pulmonary hygiene per RT - continue Seroquel to see if aqids weaning as ventiolation is adequate and perhaps tachypnea on PSV mode has a neural component - continue Antibiotics per ID recommendations; de-escalate based on HILARIO /sensitivities / clinical progress - continue Seroquel for tentative delirium and to spare IV sedation - continue Reglan for G.I. motility - Continue VTE and Stress ulcer prophylaxis - Continue enteric nutritional support - Monitor glycemic control, with target blood glucose 140-180 mg/dL while critically ill (Avoid hypoglycemia) - ABG and CXR prn - Continue to avoid nephrotoxins, adjust all medications fro GFR and CrCL - Continue to avoid benzodiazepines , as much as possible, to reduce the possibility of delirium - Continue prn analgesia per CPOT score - Continue to maintain of sleep-wake cycle, avoid delirium - PT/OT/ROM exercises- awaiting PT/OT evaluation - Continue mobility protocol and skin assessment per protocol for pressure ulcer prevention - Continue to monitor for clinical seizures - Continue Nicotine withdrawal precautions, alcohol withdrawal precautions - continue other care per attending / other consultants ..... re-evaluate in am & prn CONDITION: CRITICAL PROGNOSIS: GUARDED CODE STATUS: FULL CODE The high probability of a clinically significant, sudden or life-threatening deterioration of the [respiratory, cardiovascular & neurologic] system(s) required my full and direct attention, intervention and personal management. The aggregate critical care time was [35] minutes without overlap. Time includes spent on; [x] Data Review and interpretation [x] Patient assessment and monitoring of vital signs [x] Documentation [x] Medication orders and management Subjective Date of service: 01/06/20 Principal diagnosis: Ac cardiopulmonary arrest; Ac hypoxemic resp failure; Acute encephalopathy Interval history: Patient is seen today for: Acute cardiopulmonary arrest with ROSC; Acute hypoxemic respiratory failure; Acute metabolic-toxic encephalopathy; Ischemic hepatitis; Leucocytosis with lactic acidosis; Tobacco use disorder; Alcohol use Disorder; Hypokalemia; High grade fevers Seen and examined at bedside; 24hour events reviewed; nursing and respiratory care staff consulted; no adverse overnight events reported to me; resting peacefully in bed; discussed with her family over facetime earlier; tolerating T-piece trials a little better but still requiring AC support; no N/V/F/C Objective Vital Signs - 12hr 01/06/20 01/06/20 01/06/20 02:50 03:00 04:00 Temperature 98.7 F Pulse Rate 104 H 102 H Pulse Rate [ 109 H From Monitor] Respiratory 24 24 Rate Respiratory Rate [Bilateral Foot] Blood Pressure 138/91 135/95 O2 Sat by Pulse 100 100 Oximetry 01/06/20 01/06/20 01/06/20 04:41 05:00 06:00 Temperature Pulse Rate 106 H 104 H 102 H Pulse Rate [ From Monitor] Respiratory 24 24 Rate Respiratory Rate [Bilateral Foot] Blood Pressure 135/95 134/90 128/84 O2 Sat by Pulse 100 100 100 Oximetry 01/06/20 01/06/20 01/06/20 07:00 08:00 09:00 Temperature 98.4 F Pulse Rate 95 H 103 H 108 H Pulse Rate [ 100 H From Monitor] Respiratory 24 26 H 23 Rate Respiratory Rate [Bilateral Foot] Blood Pressure 132/93 124/86 123/83 O2 Sat by Pulse 100 100 100 Oximetry 01/06/20 01/06/20 01/06/20 10:00 10:41 11:00 Temperature Pulse Rate 103 H 103 H 114 H Pulse Rate [ From Monitor] Respiratory 24 21 Rate Respiratory 24 Rate [Bilateral Foot] Blood Pressure 152/93 124/86 161/97 O2 Sat by Pulse 100 100 99 Oximetry 01/06/20 12:00 Temperature 98.5 F Pulse Rate Pulse Rate [ From Monitor] Respiratory Rate Respiratory Rate [Bilateral Foot] Blood Pressure O2 Sat by Pulse Oximetry Constitutional: no acute distress, other (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, with midline tracheostomy and mild dys-synchrony) Eyes: non-icteric ENT: oropharynx moist, other (s/p trach) Neck: supple, no lymphadenopathy, no JVD Effort: mildly labored Ascultation: Bilateral: diminished breath sounds, rhonchi Percussion: Bilateral: not dull Cardiovascular: regular rate and rhythm (tachycardia), other (S1,S2) Gastrointestinal: normoactive bowel sounds, soft, non-tender, non-distended Integumentary: normal Extremities: no cyanosis, no edema, pulses normal, no ischemia or petechiae Neurologic: unable to assess, other (awake but not tracking voice ) Psychiatric: other (Psychiatric: Unable to assess) CBC and BMP: 01/07/20 04:12 01/07/20 04:12 ABG, PT/INR, D-dimer: ABG ABG pH 7.472 pH Units (7.350-7.450) H 01/05/20 18:06 ABG pCO2 34.5 mm Hg 01/05/20 18:06 ABG pO2 99.2 mm Hg (80.0-90.0) H 01/05/20 18:06 ABG O2 Saturation 97.8 % (95.0-99.0) 01/05/20 18:06 PT/INR, D-dimer PT 17.0 Sec. (12.2-14.9) H 11/23/19 03:47 INR 1.36 (0.87-1.13) H 11/23/19 03:47 Abnormal lab findings: Abnormal Labs 11/22/19 11/22/19 11/22/19 23:17 23:18 23:27 WBC 21.2 H RBC 3.59 L Hgb 9.8 L Hct MCH 27 L RDW 18.6 H Plt Count 454 H Lymph % (Auto) Hardy % (Auto) Hardy # Baso # Seg Neutrophils % Seg Neuts % (Manual) 86.0 H Lymphocytes % (Manual) 9.0 L Monocytes % (Manual) Seg Neutrophils # Seg Neutrophils # Man 18.2 H Lymphocytes # (Manual) Monocytes # (Manual) 1.1 H Eosinophils # (Manual) Basophils # (Manual) PT INR APTT ABG pH ABG pO2 ABG HCO3 ABG O2 Saturation ABG Base Excess ABG Hemoglobin Oxyhemoglobin Sodium Potassium Chloride Carbon Dioxide BUN Creatinine Glucose POC Glucose 53 L Lactic Acid Calcium Ionized Calcium Phosphorus Magnesium Total Bilirubin AST ALT Alkaline Phosphatase Ammonia Total Creatine Kinase CK-MB (CK-2) CK-MB (CK-2) Rel Index Total Protein Albumin Urine WBC (Auto) 40.0 H Vancomycin Trough Salicylates Acetaminophen Plasma/Serum Alcohol Crossmatch 11/22/19 11/22/19 11/22/19 23:27 23:27 23:27 WBC RBC Hgb Hct MCH RDW Plt Count Lymph % (Auto) Hardy % (Auto) Hardy # Baso # Seg Neutrophils % Seg Neuts % (Manual) Lymphocytes % (Manual) Monocytes % (Manual) Seg Neutrophils # Seg Neutrophils # Man Lymphocytes # (Manual) Monocytes # (Manual) Eosinophils # (Manual) Basophils # (Manual) PT INR APTT ABG pH ABG pO2 ABG HCO3 ABG O2 Saturation ABG Base Excess ABG Hemoglobin Oxyhemoglobin Sodium Potassium 2.4 L* Chloride 85.1 L Carbon Dioxide 19 L BUN Creatinine 0.5 L Glucose 261 H POC Glucose Lactic Acid Calcium Ionized Calcium Phosphorus Magnesium Total Bilirubin AST 609 H ALT 152 H Alkaline Phosphatase 160 H Ammonia 117.0 H Total Creatine Kinase 139 H CK-MB (CK-2) 8.3 H CK-MB (CK-2) Rel Index 5.9 H Total Protein Albumin 3.6 L Urine WBC (Auto) Vancomycin Trough Salicylates < 0.3 L Acetaminophen Plasma/Serum Alcohol Crossmatch 11/22/19 11/22/19 11/23/19 23:27 23:27 01:10 WBC RBC Hgb Hct MCH RDW Plt Count Lymph % (Auto) Hardy % (Auto) Hardy # Baso # Seg Neutrophils % Seg Neuts % (Manual) Lymphocytes % (Manual) Monocytes % (Manual) Seg Neutrophils # Seg Neutrophils # Man Lymphocytes # (Manual) Monocytes # (Manual) Eosinophils # (Manual) Basophils # (Manual) PT INR APTT ABG pH 7.273 L ABG pO2 209.7 H ABG HCO3 ABG O2 Saturation 99.2 H ABG Base Excess -3.9 L ABG Hemoglobin 10.6 L Oxyhemoglobin 93.9 L Sodium Potassium Chloride Carbon Dioxide BUN Creatinine Glucose POC Glucose Lactic Acid Calcium Ionized Calcium Phosphorus Magnesium Total Bilirubin AST ALT Alkaline Phosphatase Ammonia Total Creatine Kinase CK-MB (CK-2) CK-MB (CK-2) Rel Index Total Protein Albumin Urine WBC (Auto) Vancomycin Trough Salicylates Acetaminophen < 5.0 L Plasma/Serum Alcohol 0.08 H Crossmatch 03/03/0811/23/19 11/23/19 01:19 01:19 03:47 WBC RBC Hgb Hct MCH RDW Plt Count Lymph % (Auto) Hardy % (Auto) Hardy # Baso # Seg Neutrophils % Seg Neuts % (Manual) Lymphocytes % (Manual) Monocytes % (Manual) Seg Neutrophils # Seg Neutrophils # Man Lymphocytes # (Manual) Monocytes # (Manual) Eosinophils # (Manual) Basophils # (Manual) PT 16.3 H INR 1.29 H APTT ABG pH ABG pO2 ABG HCO3 ABG O2 Saturation ABG Base Excess ABG Hemoglobin Oxyhemoglobin Sodium Potassium Chloride Carbon Dioxide BUN Creatinine Glucose POC Glucose Lactic Acid 2.10 H* 5.00 H* Calcium Ionized Calcium Phosphorus Magnesium Total Bilirubin AST ALT Alkaline Phosphatase Ammonia Total Creatine Kinase CK-MB (CK-2) CK-MB (CK-2) Rel Index Total Protein Albumin Urine WBC (Auto) Vancomycin Trough Salicylates Acetaminophen Plasma/Serum Alcohol Crossmatch 11/23/19 11/23/19 11/23/19 03:47 03:47 04:53 WBC RBC Hgb 9.4 L Hct MCH RDW Plt Count Lymph % (Auto) Hardy % (Auto) Hardy # Baso # Seg Neutrophils % Seg Neuts % (Manual) Lymphocytes % (Manual) Monocytes % (Manual) Seg Neutrophils # Seg Neutrophils # Man Lymphocytes # (Manual) Monocytes # (Manual) Eosinophils # (Manual) Basophils # (Manual) PT 17.0 H INR 1.36 H APTT 128.2 H* ABG pH ABG pO2 ABG HCO3 ABG O2 Saturation ABG Base Excess ABG Hemoglobin Oxyhemoglobin Sodium Potassium Chloride Carbon Dioxide 18 L BUN Creatinine 0.5 L Glucose 105 H POC Glucose Lactic Acid Calcium 8.3 L Ionized Calcium Phosphorus 2.40 L Magnesium Total Bilirubin 1.30 H AST 761 H ALT 158 H Alkaline Phosphatase 143 H Ammonia Total Creatine Kinase CK-MB (CK-2) CK-MB (CK-2) Rel Index Total Protein Albumin 2.8 L Urine WBC (Auto) Vancomycin Trough Salicylates Acetaminophen Plasma/Serum Alcohol Crossmatch 11/23/19 11/23/19 11/23/19 05:12 06:32 06:32 WBC 16.8 H RBC 3.31 L Hgb 8.9 L Hct 28.7 L MCH 27 L RDW 18.6 H Plt Count Lymph % (Auto) Hardy % (Auto) Hardy # Baso # Seg Neutrophils % Seg Neuts % (Manual) 94.0 H Lymphocytes % (Manual) 1.0 L Monocytes % (Manual) Seg Neutrophils # Seg Neutrophils # Man 15.8 H Lymphocytes # (Manual) 0.2 L Monocytes # (Manual) Eosinophils # (Manual) Basophils # (Manual) PT INR APTT ABG pH ABG pO2 ABG HCO3 ABG O2 Saturation ABG Base Excess -3.2 L ABG Hemoglobin 9.0 L Oxyhemoglobin 93.6 L Sodium Potassium Chloride Carbon Dioxide BUN Creatinine Glucose POC Glucose Lactic Acid Calcium Ionized Calcium 4.5 L Phosphorus Magnesium Total Bilirubin AST ALT Alkaline Phosphatase Ammonia Total Creatine Kinase CK-MB (CK-2) CK-MB (CK-2) Rel Index Total Protein Albumin Urine WBC (Auto) Vancomycin Trough Salicylates Acetaminophen Plasma/Serum Alcohol Crossmatch 11/23/19 11/24/19 11/24/19 06:32 04:35 04:35 WBC RBC Hgb Hct MCH RDW Plt Count Lymph % (Auto) Hardy % (Auto) Hardy # Baso # Seg Neutrophils % Seg Neuts % (Manual) Lymphocytes % (Manual) Monocytes % (Manual) Seg Neutrophils # Seg Neutrophils # Man Lymphocytes # (Manual) Monocytes # (Manual) Eosinophils # (Manual) Basophils # (Manual) PT INR APTT ABG pH ABG pO2 ABG HCO3 ABG O2 Saturation ABG Base Excess ABG Hemoglobin Oxyhemoglobin Sodium Potassium Chloride Carbon Dioxide BUN Creatinine Glucose POC Glucose Lactic Acid 3.30 H* Calcium Ionized Calcium Phosphorus Magnesium 1.40 L Total Bilirubin AST ALT Alkaline Phosphatase Ammonia 98.0 H Total Creatine Kinase CK-MB (CK-2) CK-MB (CK-2) Rel Index Total Protein Albumin Urine WBC (Auto) Vancomycin Trough Salicylates Acetaminophen Plasma/Serum Alcohol Crossmatch 11/24/19 11/25/19 11/25/19 05:22 04:34 05:05 WBC 17.3 H RBC 2.88 L Hgb 7.8 L Hct 24.6 L MCH 27 L RDW 18.5 H Plt Count Lymph % (Auto) 7.7 L Hardy % (Auto) 9.7 H Hardy # 1.7 H Baso # Seg Neutrophils % 82.2 H Seg Neuts % (Manual) Lymphocytes % (Manual) Monocytes % (Manual) Seg Neutrophils # 14.2 H Seg Neutrophils # Man Lymphocytes # (Manual) Monocytes # (Manual) Eosinophils # (Manual) Basophils # (Manual) PT INR APTT ABG pH 7.475 H ABG pO2 ABG HCO3 29.4 H 32.3 H ABG O2 Saturation ABG Base Excess 5.4 H 6.9 H ABG Hemoglobin 9.0 L 10.6 L Oxyhemoglobin 94.3 L Sodium Potassium Chloride Carbon Dioxide BUN Creatinine Glucose POC Glucose Lactic Acid Calcium Ionized Calcium Phosphorus Magnesium Total Bilirubin AST ALT Alkaline Phosphatase Ammonia Total Creatine Kinase CK-MB (CK-2) CK-MB (CK-2) Rel Index Total Protein Albumin Urine WBC (Auto) Vancomycin Trough Salicylates Acetaminophen Plasma/Serum Alcohol Crossmatch 11/25/19 11/25/19 11/26/19 05:05 22:46 03:31 WBC RBC Hgb Hct MCH RDW Plt Count Lymph % (Auto) Hardy % (Auto) Hardy # Baso # Seg Neutrophils % Seg Neuts % (Manual) Lymphocytes % (Manual) Monocytes % (Manual) Seg Neutrophils # Seg Neutrophils # Man Lymphocytes # (Manual) Monocytes # (Manual) Eosinophils # (Manual) Basophils # (Manual) PT INR APTT ABG pH 7.459 H ABG pO2 ABG HCO3 34.2 H ABG O2 Saturation ABG Base Excess 9.4 H ABG Hemoglobin 7.6 L Oxyhemoglobin 94.8 L Sodium 152 H D 147 H Potassium 2.3 L* D 2.8 L* D Chloride 107.8 H Carbon Dioxide 31 H D 33 H BUN Creatinine 0.6 L 0.6 L Glucose 148 H 177 H POC Glucose Lactic Acid Calcium Ionized Calcium Phosphorus Magnesium Total Bilirubin AST 105 H ALT 71 H Alkaline Phosphatase 155 H Ammonia Total Creatine Kinase CK-MB (CK-2) CK-MB (CK-2) Rel Index Total Protein 5.2 L D Albumin 2.9 L Urine WBC (Auto) Vancomycin Trough Salicylates Acetaminophen Plasma/Serum Alcohol Crossmatch 11/26/19 11/26/19 11/27/19 08:24 08:24 04:20 WBC 12.0 H RBC 3.00 L Hgb 8.0 L 9.3 L Hct 25.9 L 29.7 L MCH 27 L RDW 18.5 H Plt Count Lymph % (Auto) Hardy % (Auto) Hardy # Baso # Seg Neutrophils % Seg Neuts % (Manual) 89.0 H Lymphocytes % (Manual) 4.0 L Monocytes % (Manual) Seg Neutrophils # Seg Neutrophils # Man 10.7 H Lymphocytes # (Manual) 0.5 L Monocytes # (Manual) Eosinophils # (Manual) Basophils # (Manual) PT INR APTT ABG pH ABG pO2 ABG HCO3 ABG O2 Saturation ABG Base Excess ABG Hemoglobin Oxyhemoglobin Sodium 146 H Potassium 3.4 L D Chloride Carbon Dioxide BUN Creatinine 0.5 L Glucose 165 H POC Glucose Lactic Acid Calcium Ionized Calcium Phosphorus Magnesium Total Bilirubin AST 57 H ALT Alkaline Phosphatase 166 H Ammonia Total Creatine Kinase CK-MB (CK-2) CK-MB (CK-2) Rel Index Total Protein Albumin 2.9 L Urine WBC (Auto) Vancomycin Trough Salicylates Acetaminophen Plasma/Serum Alcohol Crossmatch 11/27/19 11/27/19 11/27/19 04:28 04:28 04:42 WBC RBC Hgb Hct MCH RDW Plt Count Lymph % (Auto) Hardy % (Auto) Hardy # Baso # Seg Neutrophils % Seg Neuts % (Manual) Lymphocytes % (Manual) Monocytes % (Manual) Seg Neutrophils # Seg Neutrophils # Man Lymphocytes # (Manual) Monocytes # (Manual) Eosinophils # (Manual) Basophils # (Manual) PT INR APTT ABG pH 7.470 H ABG pO2 74.0 L ABG HCO3 33.8 H ABG O2 Saturation ABG Base Excess 9.1 H ABG Hemoglobin 8.7 L Oxyhemoglobin 94.7 L Sodium 146 H Potassium 2.9 L* Chloride Carbon Dioxide BUN 25 H Creatinine Glucose 213 H POC Glucose Lactic Acid Calcium Ionized Calcium Phosphorus 1.00 L Magnesium Total Bilirubin AST ALT Alkaline Phosphatase Ammonia Total Creatine Kinase CK-MB (CK-2) CK-MB (CK-2) Rel Index Total Protein Albumin Urine WBC (Auto) Vancomycin Trough Salicylates Acetaminophen Plasma/Serum Alcohol Crossmatch 11/27/19 11/27/19 11/27/19 05:37 12:20 15:46 WBC RBC Hgb Hct MCH RDW Plt Count Lymph % (Auto) Hardy % (Auto) Hardy # Baso # Seg Neutrophils % Seg Neuts % (Manual) Lymphocytes % (Manual) Monocytes % (Manual) Seg Neutrophils # Seg Neutrophils # Man Lymphocytes # (Manual) Monocytes # (Manual) Eosinophils # (Manual) Basophils # (Manual) PT INR APTT ABG pH ABG pO2 ABG HCO3 ABG O2 Saturation ABG Base Excess ABG Hemoglobin Oxyhemoglobin Sodium 146 H Potassium 3.5 L D Chloride Carbon Dioxide BUN 24 H Creatinine 0.6 L Glucose 187 H POC Glucose 117 H 220 H Lactic Acid Calcium Ionized Calcium Phosphorus Magnesium Total Bilirubin AST ALT Alkaline Phosphatase Ammonia Total Creatine Kinase CK-MB (CK-2) CK-MB (CK-2) Rel Index Total Protein Albumin Urine WBC (Auto) Vancomycin Trough Salicylates Acetaminophen Plasma/Serum Alcohol Crossmatch 11/27/19 11/28/19 11/28/19 17:28 05:00 05:02 WBC RBC Hgb Hct MCH RDW Plt Count Lymph % (Auto) Hardy % (Auto) Hardy # Baso # Seg Neutrophils % Seg Neuts % (Manual) Lymphocytes % (Manual) Monocytes % (Manual) Seg Neutrophils # Seg Neutrophils # Man Lymphocytes # (Manual) Monocytes # (Manual) Eosinophils # (Manual) Basophils # (Manual) PT INR APTT ABG pH ABG pO2 72.4 L ABG HCO3 33.6 H ABG O2 Saturation 94.1 L ABG Base Excess 7.3 H ABG Hemoglobin Oxyhemoglobin 91.8 L Sodium 146 H Potassium 3.3 L Chloride Carbon Dioxide BUN 25 H Creatinine 0.6 L Glucose 176 H POC Glucose 198 H Lactic Acid Calcium Ionized Calcium Phosphorus Magnesium Total Bilirubin AST ALT Alkaline Phosphatase Ammonia Total Creatine Kinase CK-MB (CK-2) CK-MB (CK-2) Rel Index Total Protein Albumin Urine WBC (Auto) Vancomycin Trough Salicylates Acetaminophen Plasma/Serum Alcohol Crossmatch 11/28/19 11/28/19 11/29/19 05:02 18:55 10:43 WBC 15.2 H 19.0 H RBC 3.06 L 3.01 L Hgb 8.3 L 8.3 L Hct 27.0 L 26.4 L MCH 27 L RDW 19.0 H 19.7 H Plt Count 479 H 611 H Lymph % (Auto) Hardy % (Auto) Hardy # Baso # Seg Neutrophils % Seg Neuts % (Manual) 92.0 H Lymphocytes % (Manual) 2.0 L Monocytes % (Manual) Seg Neutrophils # Seg Neutrophils # Man 14.0 H Lymphocytes # (Manual) 0.3 L Monocytes # (Manual) Eosinophils # (Manual) Basophils # (Manual) PT INR APTT ABG pH ABG pO2 ABG HCO3 ABG O2 Saturation ABG Base Excess ABG Hemoglobin Oxyhemoglobin Sodium Potassium Chloride Carbon Dioxide BUN Creatinine Glucose POC Glucose 138 H Lactic Acid Calcium Ionized Calcium Phosphorus Magnesium Total Bilirubin AST ALT Alkaline Phosphatase Ammonia Total Creatine Kinase CK-MB (CK-2) CK-MB (CK-2) Rel Index Total Protein Albumin Urine WBC (Auto) Vancomycin Trough Salicylates Acetaminophen Plasma/Serum Alcohol Crossmatch 11/29/19 11/29/19 11/29/19 10:43 12:27 19:25 WBC RBC Hgb Hct MCH RDW Plt Count Lymph % (Auto) Hardy % (Auto) Hardy # Baso # Seg Neutrophils % Seg Neuts % (Manual) Lymphocytes % (Manual) Monocytes % (Manual) Seg Neutrophils # Seg Neutrophils # Man Lymphocytes # (Manual) Monocytes # (Manual) Eosinophils # (Manual) Basophils # (Manual) PT INR APTT ABG pH ABG pO2 ABG HCO3 ABG O2 Saturation ABG Base Excess ABG Hemoglobin Oxyhemoglobin Sodium Potassium 2.8 L* Chloride Carbon Dioxide BUN 20 H Creatinine 0.5 L Glucose 121 H POC Glucose 128 H 120 H Lactic Acid Calcium Ionized Calcium Phosphorus Magnesium Total Bilirubin AST ALT Alkaline Phosphatase Ammonia Total Creatine Kinase CK-MB (CK-2) CK-MB (CK-2) Rel Index Total Protein Albumin Urine WBC (Auto) Vancomycin Trough Salicylates Acetaminophen Plasma/Serum Alcohol Crossmatch 11/29/19 11/30/19 11/30/19 23:46 04:10 05:02 WBC RBC Hgb Hct MCH RDW Plt Count Lymph % (Auto) Hardy % (Auto) Hardy # Baso # Seg Neutrophils % Seg Neuts % (Manual) Lymphocytes % (Manual) Monocytes % (Manual) Seg Neutrophils # Seg Neutrophils # Man Lymphocytes # (Manual) Monocytes # (Manual) Eosinophils # (Manual) Basophils # (Manual) PT INR APTT ABG pH ABG pO2 76.3 L ABG HCO3 32.5 H ABG O2 Saturation ABG Base Excess 6.9 H ABG Hemoglobin 8.0 L Oxyhemoglobin 92.6 L Sodium Potassium Chloride Carbon Dioxide BUN Creatinine Glucose POC Glucose 116 H 128 H Lactic Acid Calcium Ionized Calcium Phosphorus Magnesium Total Bilirubin AST ALT Alkaline Phosphatase Ammonia Total Creatine Kinase CK-MB (CK-2) CK-MB (CK-2) Rel Index Total Protein Albumin Urine WBC (Auto) Vancomycin Trough Salicylates Acetaminophen Plasma/Serum Alcohol Crossmatch 11/30/19 11/30/19 11/30/19 05:25 05:25 12:59 WBC 18.4 H RBC 3.10 L Hgb 8.5 L Hct 27.5 L MCH 27 L RDW 20.9 H Plt Count 691 H Lymph % (Auto) 7.1 L Hardy % (Auto) 7.7 H Hardy # 1.4 H Baso # Seg Neutrophils % 83.4 H Seg Neuts % (Manual) Lymphocytes % (Manual) Monocytes % (Manual) Seg Neutrophils # 15.4 H Seg Neutrophils # Man Lymphocytes # (Manual) Monocytes # (Manual) Eosinophils # (Manual) Basophils # (Manual) PT INR APTT ABG pH ABG pO2 ABG HCO3 ABG O2 Saturation ABG Base Excess ABG Hemoglobin Oxyhemoglobin Sodium 146 H Potassium Chloride 107.2 H Carbon Dioxide BUN Creatinine 0.5 L Glucose 132 H POC Glucose 124 H Lactic Acid Calcium Ionized Calcium Phosphorus Magnesium Total Bilirubin AST 246 H ALT 274 H Alkaline Phosphatase 203 H Ammonia Total Creatine Kinase CK-MB (CK-2) CK-MB (CK-2) Rel Index Total Protein 5.4 L Albumin 2.9 L Urine WBC (Auto) Vancomycin Trough Salicylates Acetaminophen Plasma/Serum Alcohol Crossmatch 11/30/19 12/01/19 12/01/19 17:53 00:05 05:10 WBC RBC Hgb Hct MCH RDW Plt Count Lymph % (Auto) Hardy % (Auto) Hardy # Baso # Seg Neutrophils % Seg Neuts % (Manual) Lymphocytes % (Manual) Monocytes % (Manual) Seg Neutrophils # Seg Neutrophils # Man Lymphocytes # (Manual) Monocytes # (Manual) Eosinophils # (Manual) Basophils # (Manual) PT INR APTT ABG pH ABG pO2 ABG HCO3 ABG O2 Saturation ABG Base Excess ABG Hemoglobin Oxyhemoglobin Sodium Potassium Chloride Carbon Dioxide BUN Creatinine Glucose POC Glucose 113 H 143 H 145 H Lactic Acid Calcium Ionized Calcium Phosphorus Magnesium Total Bilirubin AST ALT Alkaline Phosphatase Ammonia Total Creatine Kinase CK-MB (CK-2) CK-MB (CK-2) Rel Index Total Protein Albumin Urine WBC (Auto) Vancomycin Trough Salicylates Acetaminophen Plasma/Serum Alcohol Crossmatch 12/01/19 12/01/19 12/01/19 05:33 08:23 08:23 WBC 22.7 H RBC 2.88 L Hgb 7.9 L Hct 25.2 L MCH 27 L RDW 21.0 H Plt Count 732 H Lymph % (Auto) Hardy % (Auto) Hardy # Baso # Seg Neutrophils % Seg Neuts % (Manual) 91.0 H Lymphocytes % (Manual) 3.0 L Monocytes % (Manual) Seg Neutrophils # Seg Neutrophils # Man 20.7 H Lymphocytes # (Manual) 0.7 L Monocytes # (Manual) 1.1 H Eosinophils # (Manual) Basophils # (Manual) PT INR APTT ABG pH ABG pO2 68.6 L ABG HCO3 34.1 H ABG O2 Saturation ABG Base Excess 9.0 H ABG Hemoglobin 6.5 L Oxyhemoglobin 94.7 L Sodium Potassium Chloride Carbon Dioxide BUN Creatinine 0.5 L Glucose 125 H POC Glucose Lactic Acid Calcium Ionized Calcium Phosphorus Magnesium Total Bilirubin AST ALT Alkaline Phosphatase Ammonia Total Creatine Kinase CK-MB (CK-2) CK-MB (CK-2) Rel Index Total Protein Albumin Urine WBC (Auto) Vancomycin Trough Salicylates Acetaminophen Plasma/Serum Alcohol Crossmatch 12/01/19 12/01/19 12/01/19 13:21 17:54 20:59 WBC RBC Hgb Hct MCH RDW Plt Count Lymph % (Auto) Hardy % (Auto) Hardy # Baso # Seg Neutrophils % Seg Neuts % (Manual) Lymphocytes % (Manual) Monocytes % (Manual) Seg Neutrophils # Seg Neutrophils # Man Lymphocytes # (Manual) Monocytes # (Manual) Eosinophils # (Manual) Basophils # (Manual) PT INR APTT ABG pH ABG pO2 78.3 L ABG HCO3 33.8 H ABG O2 Saturation 94.9 L ABG Base Excess 7.9 H ABG Hemoglobin 11.5 L Oxyhemoglobin 92.3 L Sodium Potassium Chloride Carbon Dioxide BUN Creatinine Glucose POC Glucose 111 H 115 H Lactic Acid Calcium Ionized Calcium Phosphorus Magnesium Total Bilirubin AST ALT Alkaline Phosphatase Ammonia Total Creatine Kinase CK-MB (CK-2) CK-MB (CK-2) Rel Index Total Protein Albumin Urine WBC (Auto) Vancomycin Trough Salicylates Acetaminophen Plasma/Serum Alcohol Crossmatch 12/02/19 12/03/19 12/04/19 12:55 20:00 04:26 WBC 15.2 H RBC 2.69 L Hgb 7.4 L Hct 23.6 L MCH 27 L RDW 19.9 H Plt Count 838 H Lymph % (Auto) Hardy % (Auto) Hardy # Baso # Seg Neutrophils % Seg Neuts % (Manual) Lymphocytes % (Manual) Monocytes % (Manual) Seg Neutrophils # Seg Neutrophils # Man Lymphocytes # (Manual) Monocytes # (Manual) Eosinophils # (Manual) Basophils # (Manual) PT INR APTT ABG pH ABG pO2 68.3 L ABG HCO3 33.5 H ABG O2 Saturation 93.5 L ABG Base Excess 8.4 H ABG Hemoglobin 7.3 L Oxyhemoglobin 90.9 L Sodium Potassium Chloride Carbon Dioxide BUN Creatinine Glucose POC Glucose 107 H Lactic Acid Calcium Ionized Calcium Phosphorus Magnesium Total Bilirubin AST ALT Alkaline Phosphatase Ammonia Total Creatine Kinase CK-MB (CK-2) CK-MB (CK-2) Rel Index Total Protein Albumin Urine WBC (Auto) Vancomycin Trough Salicylates Acetaminophen Plasma/Serum Alcohol Crossmatch 12/04/19 12/04/19 12/04/19 04:26 07:45 12:02 WBC 15.9 H RBC 2.88 L Hgb 7.9 L Hct 25.1 L MCH RDW 20.4 H Plt Count 839 H Lymph % (Auto) 11.3 L Hardy % (Auto) 15.2 H Hardy # 2.4 H Baso # Seg Neutrophils % 72.4 H Seg Neuts % (Manual) Lymphocytes % (Manual) Monocytes % (Manual) Seg Neutrophils # 11.5 H Seg Neutrophils # Man Lymphocytes # (Manual) Monocytes # (Manual) Eosinophils # (Manual) Basophils # (Manual) PT INR APTT ABG pH ABG pO2 ABG HCO3 ABG O2 Saturation ABG Base Excess ABG Hemoglobin Oxyhemoglobin Sodium Potassium Chloride 96.5 L Carbon Dioxide BUN 21 H Creatinine 0.6 L Glucose 107 H POC Glucose 138 H Lactic Acid Calcium Ionized Calcium Phosphorus Magnesium Total Bilirubin AST ALT Alkaline Phosphatase Ammonia Total Creatine Kinase CK-MB (CK-2) CK-MB (CK-2) Rel Index Total Protein Albumin Urine WBC (Auto) Vancomycin Trough Salicylates Acetaminophen Plasma/Serum Alcohol Crossmatch 12/04/19 12/05/19 12/05/19 18:16 11:55 18:36 WBC RBC Hgb Hct MCH RDW Plt Count Lymph % (Auto) Hardy % (Auto) Hardy # Baso # Seg Neutrophils % Seg Neuts % (Manual) Lymphocytes % (Manual) Monocytes % (Manual) Seg Neutrophils # Seg Neutrophils # Man Lymphocytes # (Manual) Monocytes # (Manual) Eosinophils # (Manual) Basophils # (Manual) PT INR APTT ABG pH ABG pO2 ABG HCO3 ABG O2 Saturation ABG Base Excess ABG Hemoglobin Oxyhemoglobin Sodium Potassium Chloride Carbon Dioxide BUN Creatinine Glucose POC Glucose 135 H 125 H 135 H Lactic Acid Calcium Ionized Calcium Phosphorus Magnesium Total Bilirubin AST ALT Alkaline Phosphatase Ammonia Total Creatine Kinase CK-MB (CK-2) CK-MB (CK-2) Rel Index Total Protein Albumin Urine WBC (Auto) Vancomycin Trough Salicylates Acetaminophen Plasma/Serum Alcohol Crossmatch 12/05/19 12/06/19 12/06/19 23:30 04:14 05:43 WBC RBC Hgb Hct MCH RDW Plt Count Lymph % (Auto) Hardy % (Auto) Hardy # Baso # Seg Neutrophils % Seg Neuts % (Manual) Lymphocytes % (Manual) Monocytes % (Manual) Seg Neutrophils # Seg Neutrophils # Man Lymphocytes # (Manual) Monocytes # (Manual) Eosinophils # (Manual) Basophils # (Manual) PT INR APTT ABG pH ABG pO2 ABG HCO3 ABG O2 Saturation ABG Base Excess ABG Hemoglobin Oxyhemoglobin Sodium Potassium 5.6 H Chloride 95.0 L Carbon Dioxide BUN 48 H Creatinine 1.3 H D Glucose POC Glucose 126 H 121 H Lactic Acid Calcium Ionized Calcium Phosphorus Magnesium Total Bilirubin AST 89 H ALT 98 H Alkaline Phosphatase 476 H Ammonia Total Creatine Kinase CK-MB (CK-2) CK-MB (CK-2) Rel Index Total Protein Albumin 2.8 L Urine WBC (Auto) Vancomycin Trough Salicylates Acetaminophen Plasma/Serum Alcohol Crossmatch 12/06/19 12/06/19 12/07/19 10:39 14:34 00:19 WBC 17.3 H RBC 2.60 L Hgb 7.1 L Hct 22.7 L MCH 27 L RDW 20.1 H Plt Count 832 H Lymph % (Auto) Hardy % (Auto) Hardy # Baso # Seg Neutrophils % Seg Neuts % (Manual) Lymphocytes % (Manual) Monocytes % (Manual) Seg Neutrophils # Seg Neutrophils # Man Lymphocytes # (Manual) Monocytes # (Manual) Eosinophils # (Manual) Basophils # (Manual) PT INR APTT ABG pH ABG pO2 ABG HCO3 ABG O2 Saturation ABG Base Excess ABG Hemoglobin Oxyhemoglobin Sodium Potassium Chloride Carbon Dioxide BUN Creatinine Glucose POC Glucose 128 H 136 H Lactic Acid Calcium Ionized Calcium Phosphorus Magnesium Total Bilirubin AST ALT Alkaline Phosphatase Ammonia Total Creatine Kinase CK-MB (CK-2) CK-MB (CK-2) Rel Index Total Protein Albumin Urine WBC (Auto) Vancomycin Trough Salicylates Acetaminophen Plasma/Serum Alcohol Crossmatch 12/07/19 12/07/19 12/07/19 03:44 03:44 05:53 WBC 16.2 H RBC 2.56 L Hgb 7.1 L Hct 22.3 L MCH RDW 19.4 H Plt Count 782 H Lymph % (Auto) Hardy % (Auto) Hardy # Baso # Seg Neutrophils % Seg Neuts % (Manual) Lymphocytes % (Manual) Monocytes % (Manual) Seg Neutrophils # Seg Neutrophils # Man Lymphocytes # (Manual) Monocytes # (Manual) Eosinophils # (Manual) Basophils # (Manual) PT INR APTT ABG pH ABG pO2 ABG HCO3 ABG O2 Saturation ABG Base Excess ABG Hemoglobin Oxyhemoglobin Sodium Potassium Chloride 95.6 L Carbon Dioxide BUN 56 H Creatinine 1.4 H Glucose 120 H POC Glucose 128 H Lactic Acid Calcium 10.3 H Ionized Calcium Phosphorus Magnesium Total Bilirubin AST ALT Alkaline Phosphatase Ammonia Total Creatine Kinase CK-MB (CK-2) CK-MB (CK-2) Rel Index Total Protein Albumin Urine WBC (Auto) Vancomycin Trough Salicylates Acetaminophen Plasma/Serum Alcohol Crossmatch 12/07/19 12/07/19 12/08/19 12:54 23:47 00:20 WBC RBC Hgb Hct MCH RDW Plt Count Lymph % (Auto) Hardy % (Auto) Hardy # Baso # Seg Neutrophils % Seg Neuts % (Manual) Lymphocytes % (Manual) Monocytes % (Manual) Seg Neutrophils # Seg Neutrophils # Man Lymphocytes # (Manual) Monocytes # (Manual) Eosinophils # (Manual) Basophils # (Manual) PT INR APTT ABG pH ABG pO2 ABG HCO3 ABG O2 Saturation ABG Base Excess ABG Hemoglobin Oxyhemoglobin Sodium Potassium Chloride Carbon Dioxide BUN Creatinine Glucose POC Glucose 128 H 130 H 124 H Lactic Acid Calcium Ionized Calcium Phosphorus Magnesium Total Bilirubin AST ALT Alkaline Phosphatase Ammonia Total Creatine Kinase CK-MB (CK-2) CK-MB (CK-2) Rel Index Total Protein Albumin Urine WBC (Auto) Vancomycin Trough Salicylates Acetaminophen Plasma/Serum Alcohol Crossmatch 12/08/19 12/08/19 12/08/19 06:38 12:04 18:26 WBC RBC Hgb Hct MCH RDW Plt Count Lymph % (Auto) Hardy % (Auto) Hardy # Baso # Seg Neutrophils % Seg Neuts % (Manual) Lymphocytes % (Manual) Monocytes % (Manual) Seg Neutrophils # Seg Neutrophils # Man Lymphocytes # (Manual) Monocytes # (Manual) Eosinophils # (Manual) Basophils # (Manual) PT INR APTT ABG pH ABG pO2 ABG HCO3 ABG O2 Saturation ABG Base Excess ABG Hemoglobin Oxyhemoglobin Sodium Potassium Chloride Carbon Dioxide BUN Creatinine Glucose POC Glucose 137 H 129 H 150 H Lactic Acid Calcium Ionized Calcium Phosphorus Magnesium Total Bilirubin AST ALT Alkaline Phosphatase Ammonia Total Creatine Kinase CK-MB (CK-2) CK-MB (CK-2) Rel Index Total Protein Albumin Urine WBC (Auto) Vancomycin Trough Salicylates Acetaminophen Plasma/Serum Alcohol Crossmatch 12/09/19 12/09/19 12/09/19 00:56 05:34 06:13 WBC RBC Hgb Hct MCH RDW Plt Count Lymph % (Auto) Hardy % (Auto) Hardy # Baso # Seg Neutrophils % Seg Neuts % (Manual) Lymphocytes % (Manual) Monocytes % (Manual) Seg Neutrophils # Seg Neutrophils # Man Lymphocytes # (Manual) Monocytes # (Manual) Eosinophils # (Manual) Basophils # (Manual) PT INR APTT ABG pH ABG pO2 ABG HCO3 ABG O2 Saturation ABG Base Excess ABG Hemoglobin Oxyhemoglobin Sodium 146 H Potassium Chloride Carbon Dioxide BUN 66 H Creatinine 1.9 H Glucose 116 H POC Glucose 130 H 130 H Lactic Acid Calcium Ionized Calcium Phosphorus Magnesium Total Bilirubin AST ALT Alkaline Phosphatase Ammonia Total Creatine Kinase CK-MB (CK-2) CK-MB (CK-2) Rel Index Total Protein Albumin Urine WBC (Auto) Vancomycin Trough Salicylates Acetaminophen Plasma/Serum Alcohol Crossmatch 12/09/19 12/09/19 12/10/19 11:52 17:50 00:14 WBC RBC Hgb Hct MCH RDW Plt Count Lymph % (Auto) Hardy % (Auto) Hardy # Baso # Seg Neutrophils % Seg Neuts % (Manual) Lymphocytes % (Manual) Monocytes % (Manual) Seg Neutrophils # Seg Neutrophils # Man Lymphocytes # (Manual) Monocytes # (Manual) Eosinophils # (Manual) Basophils # (Manual) PT INR APTT ABG pH ABG pO2 ABG HCO3 ABG O2 Saturation ABG Base Excess ABG Hemoglobin Oxyhemoglobin Sodium Potassium Chloride Carbon Dioxide BUN Creatinine Glucose POC Glucose 135 H 120 H 116 H Lactic Acid Calcium Ionized Calcium Phosphorus Magnesium Total Bilirubin AST ALT Alkaline Phosphatase Ammonia Total Creatine Kinase CK-MB (CK-2) CK-MB (CK-2) Rel Index Total Protein Albumin Urine WBC (Auto) Vancomycin Trough Salicylates Acetaminophen Plasma/Serum Alcohol Crossmatch 12/10/19 12/10/19 12/10/19 05:38 11:38 17:34 WBC RBC Hgb Hct MCH RDW Plt Count Lymph % (Auto) Hardy % (Auto) Hardy # Baso # Seg Neutrophils % Seg Neuts % (Manual) Lymphocytes % (Manual) Monocytes % (Manual) Seg Neutrophils # Seg Neutrophils # Man Lymphocytes # (Manual) Monocytes # (Manual) Eosinophils # (Manual) Basophils # (Manual) PT INR APTT ABG pH ABG pO2 ABG HCO3 ABG O2 Saturation ABG Base Excess ABG Hemoglobin Oxyhemoglobin Sodium Potassium Chloride Carbon Dioxide BUN Creatinine Glucose POC Glucose 115 H 112 H 130 H Lactic Acid Calcium Ionized Calcium Phosphorus Magnesium Total Bilirubin AST ALT Alkaline Phosphatase Ammonia Total Creatine Kinase CK-MB (CK-2) CK-MB (CK-2) Rel Index Total Protein Albumin Urine WBC (Auto) Vancomycin Trough Salicylates Acetaminophen Plasma/Serum Alcohol Crossmatch 12/11/19 12/11/19 12/11/19 00:20 05:31 12:22 WBC RBC Hgb Hct MCH RDW Plt Count Lymph % (Auto) Hardy % (Auto) Hardy # Baso # Seg Neutrophils % Seg Neuts % (Manual) Lymphocytes % (Manual) Monocytes % (Manual) Seg Neutrophils # Seg Neutrophils # Man Lymphocytes # (Manual) Monocytes # (Manual) Eosinophils # (Manual) Basophils # (Manual) PT INR APTT ABG pH ABG pO2 ABG HCO3 ABG O2 Saturation ABG Base Excess ABG Hemoglobin Oxyhemoglobin Sodium Potassium Chloride Carbon Dioxide BUN Creatinine Glucose POC Glucose 124 H 132 H 128 H Lactic Acid Calcium Ionized Calcium Phosphorus Magnesium Total Bilirubin AST ALT Alkaline Phosphatase Ammonia Total Creatine Kinase CK-MB (CK-2) CK-MB (CK-2) Rel Index Total Protein Albumin Urine WBC (Auto) Vancomycin Trough Salicylates Acetaminophen Plasma/Serum Alcohol Crossmatch 12/11/19 12/11/19 12/12/19 18:04 23:42 03:51 WBC RBC Hgb Hct MCH RDW Plt Count Lymph % (Auto) Hardy % (Auto) Hardy # Baso # Seg Neutrophils % Seg Neuts % (Manual) Lymphocytes % (Manual) Monocytes % (Manual) Seg Neutrophils # Seg Neutrophils # Man Lymphocytes # (Manual) Monocytes # (Manual) Eosinophils # (Manual) Basophils # (Manual) PT INR APTT ABG pH ABG pO2 ABG HCO3 ABG O2 Saturation ABG Base Excess ABG Hemoglobin Oxyhemoglobin Sodium 149 H Potassium Chloride Carbon Dioxide 20 L D BUN 77 H Creatinine 2.8 H Glucose POC Glucose 133 H 154 H Lactic Acid Calcium Ionized Calcium Phosphorus Magnesium Total Bilirubin AST ALT Alkaline Phosphatase Ammonia Total Creatine Kinase CK-MB (CK-2) CK-MB (CK-2) Rel Index Total Protein Albumin Urine WBC (Auto) Vancomycin Trough Salicylates Acetaminophen Plasma/Serum Alcohol Crossmatch 12/12/19 12/12/19 12/12/19 05:18 05:26 10:30 WBC 18.0 H RBC 2.51 L Hgb 6.8 L Hct 22.0 L MCH 27 L RDW 19.9 H Plt Count 582 H Lymph % (Auto) Hardy % (Auto) Hardy # Baso # Seg Neutrophils % Seg Neuts % (Manual) Lymphocytes % (Manual) Monocytes % (Manual) Seg Neutrophils # Seg Neutrophils # Man Lymphocytes # (Manual) Monocytes # (Manual) Eosinophils # (Manual) Basophils # (Manual) PT INR APTT ABG pH ABG pO2 ABG HCO3 ABG O2 Saturation ABG Base Excess ABG Hemoglobin Oxyhemoglobin Sodium Potassium Chloride Carbon Dioxide BUN Creatinine Glucose POC Glucose 135 H Lactic Acid Calcium Ionized Calcium Phosphorus Magnesium Total Bilirubin AST ALT Alkaline Phosphatase Ammonia Total Creatine Kinase CK-MB (CK-2) CK-MB (CK-2) Rel Index Total Protein Albumin Urine WBC (Auto) Vancomycin Trough Salicylates Acetaminophen Plasma/Serum Alcohol Crossmatch See Detail 12/12/19 12/12/19 12/12/19 11:44 18:10 23:21 WBC RBC Hgb Hct MCH RDW Plt Count Lymph % (Auto) Hardy % (Auto) Hardy # Baso # Seg Neutrophils % Seg Neuts % (Manual) Lymphocytes % (Manual) Monocytes % (Manual) Seg Neutrophils # Seg Neutrophils # Man Lymphocytes # (Manual) Monocytes # (Manual) Eosinophils # (Manual) Basophils # (Manual) PT INR APTT ABG pH ABG pO2 ABG HCO3 ABG O2 Saturation ABG Base Excess ABG Hemoglobin Oxyhemoglobin Sodium Potassium Chloride Carbon Dioxide BUN Creatinine Glucose POC Glucose 108 H 107 H 126 H Lactic Acid Calcium Ionized Calcium Phosphorus Magnesium Total Bilirubin AST ALT Alkaline Phosphatase Ammonia Total Creatine Kinase CK-MB (CK-2) CK-MB (CK-2) Rel Index Total Protein Albumin Urine WBC (Auto) Vancomycin Trough Salicylates Acetaminophen Plasma/Serum Alcohol Crossmatch 12/13/19 12/13/19 12/13/19 05:41 07:48 07:48 WBC 38.3 H RBC 2.37 L Hgb 6.3 L Hct 20.9 L MCH 27 L RDW 20.2 H Plt Count 546 H Lymph % (Auto) Hardy % (Auto) Hardy # Baso # Seg Neutrophils % Seg Neuts % (Manual) 93.0 H Lymphocytes % (Manual) 1.0 L Monocytes % (Manual) Seg Neutrophils # Seg Neutrophils # Man 35.6 H Lymphocytes # (Manual) 0.4 L Monocytes # (Manual) Eosinophils # (Manual) Basophils # (Manual) 0.4 H PT INR APTT ABG pH ABG pO2 ABG HCO3 ABG O2 Saturation ABG Base Excess ABG Hemoglobin Oxyhemoglobin Sodium 152 H Potassium 3.1 L D Chloride 111.9 H Carbon Dioxide 21 L BUN 53 H Creatinine 1.9 H Glucose 141 H POC Glucose 128 H Lactic Acid Calcium Ionized Calcium Phosphorus Magnesium Total Bilirubin AST ALT Alkaline Phosphatase 316 H Ammonia Total Creatine Kinase CK-MB (CK-2) CK-MB (CK-2) Rel Index Total Protein Albumin 2.4 L Urine WBC (Auto) Vancomycin Trough Salicylates Acetaminophen Plasma/Serum Alcohol Crossmatch 12/13/19 12/13/19 12/14/19 18:17 23:19 05:36 WBC RBC Hgb Hct MCH RDW Plt Count Lymph % (Auto) Hardy % (Auto) Hardy # Baso # Seg Neutrophils % Seg Neuts % (Manual) Lymphocytes % (Manual) Monocytes % (Manual) Seg Neutrophils # Seg Neutrophils # Man Lymphocytes # (Manual) Monocytes # (Manual) Eosinophils # (Manual) Basophils # (Manual) PT INR APTT ABG pH ABG pO2 ABG HCO3 ABG O2 Saturation ABG Base Excess ABG Hemoglobin Oxyhemoglobin Sodium Potassium Chloride Carbon Dioxide BUN Creatinine Glucose POC Glucose 141 H 158 H 182 H Lactic Acid Calcium Ionized Calcium Phosphorus Magnesium Total Bilirubin AST ALT Alkaline Phosphatase Ammonia Total Creatine Kinase CK-MB (CK-2) CK-MB (CK-2) Rel Index Total Protein Albumin Urine WBC (Auto) Vancomycin Trough Salicylates Acetaminophen Plasma/Serum Alcohol Crossmatch 12/14/19 12/14/19 12/14/19 08:48 08:48 10:31 WBC 33.3 H RBC 2.70 L Hgb 7.9 L 8.0 L Hct 25.3 L 24.0 L MCH RDW 19.2 H Plt Count 476 H Lymph % (Auto) Hardy % (Auto) Hardy # Baso # Seg Neutrophils % Seg Neuts % (Manual) Lymphocytes % (Manual) Monocytes % (Manual) Seg Neutrophils # Seg Neutrophils # Man Lymphocytes # (Manual) Monocytes # (Manual) Eosinophils # (Manual) Basophils # (Manual) PT INR APTT ABG pH ABG pO2 ABG HCO3 ABG O2 Saturation ABG Base Excess ABG Hemoglobin Oxyhemoglobin Sodium 153 H Potassium 2.5 L* Chloride 114.9 H Carbon Dioxide 20 L BUN 38 H Creatinine 1.4 H Glucose 177 H POC Glucose Lactic Acid Calcium Ionized Calcium Phosphorus Magnesium Total Bilirubin AST ALT Alkaline Phosphatase Ammonia Total Creatine Kinase CK-MB (CK-2) CK-MB (CK-2) Rel Index Total Protein Albumin Urine WBC (Auto) Vancomycin Trough Salicylates Acetaminophen Plasma/Serum Alcohol Crossmatch 12/14/19 12/14/19 12/14/19 12:57 16:15 17:50 WBC RBC Hgb Hct MCH RDW Plt Count Lymph % (Auto) Hardy % (Auto) Hardy # Baso # Seg Neutrophils % Seg Neuts % (Manual) Lymphocytes % (Manual) Monocytes % (Manual) Seg Neutrophils # Seg Neutrophils # Man Lymphocytes # (Manual) Monocytes # (Manual) Eosinophils # (Manual) Basophils # (Manual) PT INR APTT ABG pH ABG pO2 73.6 L ABG HCO3 ABG O2 Saturation ABG Base Excess ABG Hemoglobin 7.6 L Oxyhemoglobin 94.0 L Sodium Potassium Chloride Carbon Dioxide BUN Creatinine Glucose POC Glucose 174 H 150 H Lactic Acid Calcium Ionized Calcium Phosphorus Magnesium Total Bilirubin AST ALT Alkaline Phosphatase Ammonia Total Creatine Kinase CK-MB (CK-2) CK-MB (CK-2) Rel Index Total Protein Albumin Urine WBC (Auto) Vancomycin Trough Salicylates Acetaminophen Plasma/Serum Alcohol Crossmatch 12/15/19 12/15/19 12/15/19 00:28 05:27 07:23 WBC 30.0 H RBC 3.11 L Hgb 8.6 L Hct 27.7 L MCH RDW 20.0 H Plt Count 473 H Lymph % (Auto) Hardy % (Auto) Hardy # Baso # Seg Neutrophils % Seg Neuts % (Manual) Lymphocytes % (Manual) Monocytes % (Manual) Seg Neutrophils # Seg Neutrophils # Man Lymphocytes # (Manual) Monocytes # (Manual) Eosinophils # (Manual) Basophils # (Manual) PT INR APTT ABG pH ABG pO2 ABG HCO3 ABG O2 Saturation ABG Base Excess ABG Hemoglobin Oxyhemoglobin Sodium Potassium Chloride Carbon Dioxide BUN Creatinine Glucose POC Glucose 167 H 148 H Lactic Acid Calcium Ionized Calcium Phosphorus Magnesium Total Bilirubin AST ALT Alkaline Phosphatase Ammonia Total Creatine Kinase CK-MB (CK-2) CK-MB (CK-2) Rel Index Total Protein Albumin Urine WBC (Auto) Vancomycin Trough Salicylates Acetaminophen Plasma/Serum Alcohol Crossmatch 12/15/19 12/15/19 12/15/19 07:23 12:21 17:41 WBC RBC Hgb Hct MCH RDW Plt Count Lymph % (Auto) Hardy % (Auto) Hardy # Baso # Seg Neutrophils % Seg Neuts % (Manual) Lymphocytes % (Manual) Monocytes % (Manual) Seg Neutrophils # Seg Neutrophils # Man Lymphocytes # (Manual) Monocytes # (Manual) Eosinophils # (Manual) Basophils # (Manual) PT INR APTT ABG pH ABG pO2 ABG HCO3 ABG O2 Saturation ABG Base Excess ABG Hemoglobin Oxyhemoglobin Sodium 147 H Potassium 3.5 L D Chloride 111.2 H Carbon Dioxide 19 L BUN 29 H Creatinine Glucose 126 H POC Glucose 154 H 144 H Lactic Acid Calcium Ionized Calcium Phosphorus Magnesium Total Bilirubin AST ALT Alkaline Phosphatase Ammonia Total Creatine Kinase CK-MB (CK-2) CK-MB (CK-2) Rel Index Total Protein Albumin Urine WBC (Auto) Vancomycin Trough Salicylates Acetaminophen Plasma/Serum Alcohol Crossmatch 12/16/19 12/16/19 12/16/19 00:22 05:30 05:44 WBC 30.8 H RBC 2.58 L Hgb 7.1 L Hct 22.7 L MCH RDW 19.6 H Plt Count 451 H Lymph % (Auto) Hardy % (Auto) Hardy # Baso # Seg Neutrophils % Seg Neuts % (Manual) Lymphocytes % (Manual) Monocytes % (Manual) Seg Neutrophils # Seg Neutrophils # Man Lymphocytes # (Manual) Monocytes # (Manual) Eosinophils # (Manual) Basophils # (Manual) PT INR APTT ABG pH ABG pO2 ABG HCO3 ABG O2 Saturation ABG Base Excess ABG Hemoglobin Oxyhemoglobin Sodium Potassium Chloride Carbon Dioxide BUN Creatinine Glucose POC Glucose 139 H 126 H Lactic Acid Calcium Ionized Calcium Phosphorus Magnesium Total Bilirubin AST ALT Alkaline Phosphatase Ammonia Total Creatine Kinase CK-MB (CK-2) CK-MB (CK-2) Rel Index Total Protein Albumin Urine WBC (Auto) Vancomycin Trough Salicylates Acetaminophen Plasma/Serum Alcohol Crossmatch 12/16/19 12/16/19 12/16/19 05:44 11:48 17:37 WBC RBC Hgb Hct MCH RDW Plt Count Lymph % (Auto) Hardy % (Auto) Hardy # Baso # Seg Neutrophils % Seg Neuts % (Manual) Lymphocytes % (Manual) Monocytes % (Manual) Seg Neutrophils # Seg Neutrophils # Man Lymphocytes # (Manual) Monocytes # (Manual) Eosinophils # (Manual) Basophils # (Manual) PT INR APTT ABG pH ABG pO2 ABG HCO3 ABG O2 Saturation ABG Base Excess ABG Hemoglobin Oxyhemoglobin Sodium Potassium 3.4 L Chloride 109.2 H Carbon Dioxide 19 L BUN 27 H Creatinine Glucose 124 H POC Glucose 125 H 148 H Lactic Acid Calcium Ionized Calcium Phosphorus Magnesium Total Bilirubin AST ALT Alkaline Phosphatase Ammonia Total Creatine Kinase CK-MB (CK-2) CK-MB (CK-2) Rel Index Total Protein Albumin Urine WBC (Auto) Vancomycin Trough Salicylates Acetaminophen Plasma/Serum Alcohol Crossmatch 12/16/19 12/17/19 12/17/19 23:43 05:28 12:47 WBC RBC Hgb Hct MCH RDW Plt Count Lymph % (Auto) Hardy % (Auto) Hardy # Baso # Seg Neutrophils % Seg Neuts % (Manual) Lymphocytes % (Manual) Monocytes % (Manual) Seg Neutrophils # Seg Neutrophils # Man Lymphocytes # (Manual) Monocytes # (Manual) Eosinophils # (Manual) Basophils # (Manual) PT INR APTT ABG pH ABG pO2 ABG HCO3 ABG O2 Saturation ABG Base Excess ABG Hemoglobin Oxyhemoglobin Sodium Potassium Chloride Carbon Dioxide BUN Creatinine Glucose POC Glucose 142 H 140 H 125 H Lactic Acid Calcium Ionized Calcium Phosphorus Magnesium Total Bilirubin AST ALT Alkaline Phosphatase Ammonia Total Creatine Kinase CK-MB (CK-2) CK-MB (CK-2) Rel Index Total Protein Albumin Urine WBC (Auto) Vancomycin Trough Salicylates Acetaminophen Plasma/Serum Alcohol Crossmatch 12/17/19 12/17/19 12/17/19 17:05 18:00 Unknown WBC RBC Hgb Hct MCH RDW Plt Count Lymph % (Auto) Hardy % (Auto) Hardy # Baso # Seg Neutrophils % Seg Neuts % (Manual) Lymphocytes % (Manual) Monocytes % (Manual) Seg Neutrophils # Seg Neutrophils # Man Lymphocytes # (Manual) Monocytes # (Manual) Eosinophils # (Manual) Basophils # (Manual) PT INR APTT ABG pH ABG pO2 68.1 L ABG HCO3 ABG O2 Saturation 93.7 L ABG Base Excess ABG Hemoglobin 5.0 L Oxyhemoglobin 91.7 L Sodium Potassium Chloride Carbon Dioxide BUN Creatinine Glucose POC Glucose 140 H Lactic Acid Calcium Ionized Calcium Phosphorus Magnesium Total Bilirubin AST ALT Alkaline Phosphatase Ammonia Total Creatine Kinase CK-MB (CK-2) CK-MB (CK-2) Rel Index Total Protein Albumin Urine WBC (Auto) Vancomycin Trough Salicylates Acetaminophen Plasma/Serum Alcohol Crossmatch 12/18/19 12/18/19 12/18/19 00:16 04:53 04:53 WBC 28.6 H RBC 2.27 L Hgb 6.3 L Hct 19.5 L* MCH RDW 20.0 H Plt Count 497 H Lymph % (Auto) Hardy % (Auto) Hardy # Baso # Seg Neutrophils % Seg Neuts % (Manual) Lymphocytes % (Manual) Monocytes % (Manual) Seg Neutrophils # Seg Neutrophils # Man Lymphocytes # (Manual) Monocytes # (Manual) Eosinophils # (Manual) Basophils # (Manual) PT INR APTT ABG pH ABG pO2 ABG HCO3 ABG O2 Saturation ABG Base Excess ABG Hemoglobin Oxyhemoglobin Sodium Potassium Chloride 107.9 H Carbon Dioxide 20 L BUN 27 H Creatinine 0.6 L Glucose 116 H POC Glucose 123 H Lactic Acid Calcium Ionized Calcium Phosphorus Magnesium Total Bilirubin AST ALT Alkaline Phosphatase Ammonia Total Creatine Kinase CK-MB (CK-2) CK-MB (CK-2) Rel Index Total Protein Albumin Urine WBC (Auto) Vancomycin Trough Salicylates Acetaminophen Plasma/Serum Alcohol Crossmatch 12/18/19 12/18/19 12/18/19 06:38 11:22 12:08 WBC RBC Hgb Hct MCH RDW Plt Count Lymph % (Auto) Hardy % (Auto) Hardy # Baso # Seg Neutrophils % Seg Neuts % (Manual) Lymphocytes % (Manual) Monocytes % (Manual) Seg Neutrophils # Seg Neutrophils # Man Lymphocytes # (Manual) Monocytes # (Manual) Eosinophils # (Manual) Basophils # (Manual) PT INR APTT ABG pH ABG pO2 ABG HCO3 ABG O2 Saturation ABG Base Excess ABG Hemoglobin Oxyhemoglobin Sodium Potassium Chloride Carbon Dioxide BUN Creatinine Glucose POC Glucose 120 H 127 H Lactic Acid Calcium Ionized Calcium Phosphorus Magnesium Total Bilirubin AST ALT Alkaline Phosphatase Ammonia Total Creatine Kinase CK-MB (CK-2) CK-MB (CK-2) Rel Index Total Protein Albumin Urine WBC (Auto) Vancomycin Trough Salicylates Acetaminophen Plasma/Serum Alcohol Crossmatch See Detail 12/18/19 12/18/19 12/18/19 14:05 17:49 23:53 WBC RBC Hgb Hct MCH RDW Plt Count Lymph % (Auto) Hardy % (Auto) Hardy # Baso # Seg Neutrophils % Seg Neuts % (Manual) Lymphocytes % (Manual) Monocytes % (Manual) Seg Neutrophils # Seg Neutrophils # Man Lymphocytes # (Manual) Monocytes # (Manual) Eosinophils # (Manual) Basophils # (Manual) PT INR APTT ABG pH 7.267 L ABG pO2 69.8 L ABG HCO3 ABG O2 Saturation 88.4 L ABG Base Excess ABG Hemoglobin 7.1 L Oxyhemoglobin 86.4 L Sodium Potassium Chloride Carbon Dioxide BUN Creatinine Glucose POC Glucose 157 H 128 H Lactic Acid Calcium Ionized Calcium Phosphorus Magnesium Total Bilirubin AST ALT Alkaline Phosphatase Ammonia Total Creatine Kinase CK-MB (CK-2) CK-MB (CK-2) Rel Index Total Protein Albumin Urine WBC (Auto) Vancomycin Trough Salicylates Acetaminophen Plasma/Serum Alcohol Crossmatch 12/19/19 12/19/19 12/19/19 03:37 03:37 05:25 WBC 31.3 H RBC 2.60 L Hgb 7.6 L Hct 23.0 L MCH RDW 19.4 H Plt Count 530 H Lymph % (Auto) Hardy % (Auto) Hardy # Baso # Seg Neutrophils % Seg Neuts % (Manual) Lymphocytes % (Manual) Monocytes % (Manual) Seg Neutrophils # Seg Neutrophils # Man Lymphocytes # (Manual) Monocytes # (Manual) Eosinophils # (Manual) Basophils # (Manual) PT INR APTT ABG pH ABG pO2 ABG HCO3 ABG O2 Saturation ABG Base Excess ABG Hemoglobin Oxyhemoglobin Sodium Potassium Chloride Carbon Dioxide 18 L BUN 36 H Creatinine Glucose 111 H POC Glucose 123 H Lactic Acid Calcium Ionized Calcium Phosphorus Magnesium Total Bilirubin AST ALT Alkaline Phosphatase Ammonia Total Creatine Kinase CK-MB (CK-2) CK-MB (CK-2) Rel Index Total Protein Albumin Urine WBC (Auto) Vancomycin Trough Salicylates Acetaminophen Plasma/Serum Alcohol Crossmatch 12/19/19 12/19/19 12/20/19 12:59 18:33 00:00 WBC RBC Hgb Hct MCH RDW Plt Count Lymph % (Auto) Hardy % (Auto) Hardy # Baso # Seg Neutrophils % Seg Neuts % (Manual) Lymphocytes % (Manual) Monocytes % (Manual) Seg Neutrophils # Seg Neutrophils # Man Lymphocytes # (Manual) Monocytes # (Manual) Eosinophils # (Manual) Basophils # (Manual) PT INR APTT ABG pH ABG pO2 ABG HCO3 ABG O2 Saturation ABG Base Excess ABG Hemoglobin Oxyhemoglobin Sodium Potassium Chloride Carbon Dioxide BUN Creatinine Glucose POC Glucose 130 H 118 H 135 H Lactic Acid Calcium Ionized Calcium Phosphorus Magnesium Total Bilirubin AST ALT Alkaline Phosphatase Ammonia Total Creatine Kinase CK-MB (CK-2) CK-MB (CK-2) Rel Index Total Protein Albumin Urine WBC (Auto) Vancomycin Trough Salicylates Acetaminophen Plasma/Serum Alcohol Crossmatch 12/20/19 12/20/19 12/20/19 05:46 12:31 18:07 WBC RBC Hgb Hct MCH RDW Plt Count Lymph % (Auto) Hardy % (Auto) Hardy # Baso # Seg Neutrophils % Seg Neuts % (Manual) Lymphocytes % (Manual) Monocytes % (Manual) Seg Neutrophils # Seg Neutrophils # Man Lymphocytes # (Manual) Monocytes # (Manual) Eosinophils # (Manual) Basophils # (Manual) PT INR APTT ABG pH ABG pO2 ABG HCO3 ABG O2 Saturation ABG Base Excess ABG Hemoglobin Oxyhemoglobin Sodium Potassium Chloride Carbon Dioxide BUN Creatinine Glucose POC Glucose 131 H 128 H 134 H Lactic Acid Calcium Ionized Calcium Phosphorus Magnesium Total Bilirubin AST ALT Alkaline Phosphatase Ammonia Total Creatine Kinase CK-MB (CK-2) CK-MB (CK-2) Rel Index Total Protein Albumin Urine WBC (Auto) Vancomycin Trough Salicylates Acetaminophen Plasma/Serum Alcohol Crossmatch 12/21/19 12/21/19 12/21/19 03:28 03:28 07:21 WBC 29.4 H RBC 2.30 L Hgb 6.8 L Hct 20.2 L MCH RDW 20.2 H Plt Count 746 H Lymph % (Auto) Hardy % (Auto) Hardy # Baso # Seg Neutrophils % Seg Neuts % (Manual) 85.0 H Lymphocytes % (Manual) 8.0 L Monocytes % (Manual) Seg Neutrophils # Seg Neutrophils # Man 25.0 H Lymphocytes # (Manual) Monocytes # (Manual) 1.5 H Eosinophils # (Manual) 0.6 H Basophils # (Manual) PT INR APTT ABG pH ABG pO2 ABG HCO3 ABG O2 Saturation ABG Base Excess ABG Hemoglobin Oxyhemoglobin Sodium Potassium Chloride Carbon Dioxide 17 L BUN 57 H Creatinine 1.4 H D Glucose POC Glucose 124 H Lactic Acid Calcium Ionized Calcium Phosphorus Magnesium Total Bilirubin AST ALT Alkaline Phosphatase Ammonia Total Creatine Kinase CK-MB (CK-2) CK-MB (CK-2) Rel Index Total Protein Albumin Urine WBC (Auto) Vancomycin Trough Salicylates Acetaminophen Plasma/Serum Alcohol Crossmatch 12/21/19 12/21/19 12/21/19 08:56 12:06 14:53 WBC RBC Hgb 7.2 L Hct 22.9 L MCH RDW Plt Count Lymph % (Auto) Hardy % (Auto) Hardy # Baso # Seg Neutrophils % Seg Neuts % (Manual) Lymphocytes % (Manual) Monocytes % (Manual) Seg Neutrophils # Seg Neutrophils # Man Lymphocytes # (Manual) Monocytes # (Manual) Eosinophils # (Manual) Basophils # (Manual) PT INR APTT ABG pH ABG pO2 ABG HCO3 ABG O2 Saturation ABG Base Excess ABG Hemoglobin Oxyhemoglobin Sodium Potassium Chloride Carbon Dioxide BUN Creatinine Glucose POC Glucose 116 H Lactic Acid Calcium Ionized Calcium Phosphorus Magnesium Total Bilirubin AST ALT Alkaline Phosphatase Ammonia Total Creatine Kinase CK-MB (CK-2) CK-MB (CK-2) Rel Index Total Protein Albumin Urine WBC (Auto) Vancomycin Trough 33.8 H Salicylates Acetaminophen Plasma/Serum Alcohol Crossmatch 12/21/19 12/21/19 12/21/19 14:54 17:27 23:49 WBC RBC Hgb Hct MCH RDW Plt Count Lymph % (Auto) Hardy % (Auto) Hardy # Baso # Seg Neutrophils % Seg Neuts % (Manual) Lymphocytes % (Manual) Monocytes % (Manual) Seg Neutrophils # Seg Neutrophils # Man Lymphocytes # (Manual) Monocytes # (Manual) Eosinophils # (Manual) Basophils # (Manual) PT INR APTT ABG pH ABG pO2 ABG HCO3 ABG O2 Saturation ABG Base Excess ABG Hemoglobin Oxyhemoglobin Sodium Potassium Chloride Carbon Dioxide BUN Creatinine Glucose POC Glucose 145 H 127 H Lactic Acid Calcium Ionized Calcium Phosphorus Magnesium Total Bilirubin AST ALT Alkaline Phosphatase Ammonia Total Creatine Kinase CK-MB (CK-2) CK-MB (CK-2) Rel Index Total Protein Albumin Urine WBC (Auto) Vancomycin Trough Salicylates Acetaminophen Plasma/Serum Alcohol Crossmatch See Detail 12/22/19 12/22/19 12/22/19 04:43 05:56 08:40 WBC RBC Hgb Hct MCH RDW Plt Count Lymph % (Auto) Hardy % (Auto) Hardy # Baso # Seg Neutrophils % Seg Neuts % (Manual) Lymphocytes % (Manual) Monocytes % (Manual) Seg Neutrophils # Seg Neutrophils # Man Lymphocytes # (Manual) Monocytes # (Manual) Eosinophils # (Manual) Basophils # (Manual) PT INR APTT ABG pH ABG pO2 75.6 L ABG HCO3 ABG O2 Saturation ABG Base Excess -2.6 L ABG Hemoglobin 6.8 L Oxyhemoglobin 94.6 L Sodium Potassium Chloride Carbon Dioxide 17 L BUN 60 H Creatinine 1.4 H Glucose 126 H POC Glucose 153 H Lactic Acid Calcium Ionized Calcium Phosphorus Magnesium Total Bilirubin AST ALT Alkaline Phosphatase Ammonia Total Creatine Kinase CK-MB (CK-2) CK-MB (CK-2) Rel Index Total Protein Albumin Urine WBC (Auto) Vancomycin Trough Salicylates Acetaminophen Plasma/Serum Alcohol Crossmatch 12/22/19 12/22/19 12/23/19 12:07 17:49 04:30 WBC 22.4 H RBC 2.68 L Hgb 7.6 L Hct 22.9 L MCH RDW 19.9 H Plt Count 998 H Lymph % (Auto) Hardy % (Auto) Hardy # Baso # Seg Neutrophils % Seg Neuts % (Manual) 88.0 H Lymphocytes % (Manual) 2.0 L Monocytes % (Manual) 9.0 H Seg Neutrophils # Seg Neutrophils # Man 19.7 H Lymphocytes # (Manual) 0.4 L Monocytes # (Manual) 2.0 H Eosinophils # (Manual) Basophils # (Manual) PT INR APTT ABG pH ABG pO2 ABG HCO3 ABG O2 Saturation ABG Base Excess ABG Hemoglobin Oxyhemoglobin Sodium Potassium Chloride Carbon Dioxide BUN Creatinine Glucose POC Glucose 140 H 116 H Lactic Acid Calcium Ionized Calcium Phosphorus Magnesium Total Bilirubin AST ALT Alkaline Phosphatase Ammonia Total Creatine Kinase CK-MB (CK-2) CK-MB (CK-2) Rel Index Total Protein Albumin Urine WBC (Auto) Vancomycin Trough Salicylates Acetaminophen Plasma/Serum Alcohol Crossmatch 12/23/19 12/23/19 12/23/19 04:30 12:00 18:06 WBC RBC Hgb Hct MCH RDW Plt Count Lymph % (Auto) Hardy % (Auto) Hardy # Baso # Seg Neutrophils % Seg Neuts % (Manual) Lymphocytes % (Manual) Monocytes % (Manual) Seg Neutrophils # Seg Neutrophils # Man Lymphocytes # (Manual) Monocytes # (Manual) Eosinophils # (Manual) Basophils # (Manual) PT INR APTT ABG pH ABG pO2 ABG HCO3 ABG O2 Saturation ABG Base Excess ABG Hemoglobin Oxyhemoglobin Sodium Potassium 5.2 H Chloride Carbon Dioxide 21 L BUN 69 H Creatinine 1.5 H Glucose 117 H POC Glucose 128 H 138 H Lactic Acid Calcium Ionized Calcium Phosphorus Magnesium Total Bilirubin AST ALT Alkaline Phosphatase Ammonia Total Creatine Kinase CK-MB (CK-2) CK-MB (CK-2) Rel Index Total Protein Albumin Urine WBC (Auto) Vancomycin Trough Salicylates Acetaminophen Plasma/Serum Alcohol Crossmatch 12/23/19 12/24/19 12/24/19 23:46 04:31 05:08 WBC RBC Hgb Hct MCH RDW Plt Count Lymph % (Auto) Hardy % (Auto) Hardy # Baso # Seg Neutrophils % Seg Neuts % (Manual) Lymphocytes % (Manual) Monocytes % (Manual) Seg Neutrophils # Seg Neutrophils # Man Lymphocytes # (Manual) Monocytes # (Manual) Eosinophils # (Manual) Basophils # (Manual) PT INR APTT ABG pH ABG pO2 ABG HCO3 ABG O2 Saturation ABG Base Excess ABG Hemoglobin Oxyhemoglobin Sodium Potassium 5.3 H Chloride 107.6 H Carbon Dioxide 20 L BUN 72 H Creatinine 1.6 H Glucose 120 H POC Glucose 120 H 140 H Lactic Acid Calcium Ionized Calcium Phosphorus Magnesium Total Bilirubin AST ALT Alkaline Phosphatase Ammonia Total Creatine Kinase CK-MB (CK-2) CK-MB (CK-2) Rel Index Total Protein Albumin Urine WBC (Auto) Vancomycin Trough Salicylates Acetaminophen Plasma/Serum Alcohol Crossmatch 12/24/19 12/24/19 12/25/19 11:58 17:49 03:47 WBC 36.2 H RBC 2.92 L Hgb 8.4 L Hct 26.1 L MCH RDW 20.2 H Plt Count 942 H Lymph % (Auto) Hardy % (Auto) Hardy # Baso # Seg Neutrophils % Seg Neuts % (Manual) 97.5 H Lymphocytes % (Manual) 1.0 L Monocytes % (Manual) Seg Neutrophils # Seg Neutrophils # Man 35.3 H Lymphocytes # (Manual) 0.4 L Monocytes # (Manual) Eosinophils # (Manual) Basophils # (Manual) PT INR APTT ABG pH ABG pO2 ABG HCO3 ABG O2 Saturation ABG Base Excess ABG Hemoglobin Oxyhemoglobin Sodium Potassium Chloride Carbon Dioxide BUN Creatinine Glucose POC Glucose 146 H 131 H Lactic Acid Calcium Ionized Calcium Phosphorus Magnesium Total Bilirubin AST ALT Alkaline Phosphatase Ammonia Total Creatine Kinase CK-MB (CK-2) CK-MB (CK-2) Rel Index Total Protein Albumin Urine WBC (Auto) Vancomycin Trough Salicylates Acetaminophen Plasma/Serum Alcohol Crossmatch 12/25/19 12/25/19 12/25/19 03:47 05:30 12:23 WBC RBC Hgb Hct MCH RDW Plt Count Lymph % (Auto) Hardy % (Auto) Hardy # Baso # Seg Neutrophils % Seg Neuts % (Manual) Lymphocytes % (Manual) Monocytes % (Manual) Seg Neutrophils # Seg Neutrophils # Man Lymphocytes # (Manual) Monocytes # (Manual) Eosinophils # (Manual) Basophils # (Manual) PT INR APTT ABG pH ABG pO2 ABG HCO3 ABG O2 Saturation ABG Base Excess ABG Hemoglobin Oxyhemoglobin Sodium Potassium Chloride Carbon Dioxide 15 L BUN 70 H Creatinine 1.7 H Glucose 153 H POC Glucose 169 H 135 H Lactic Acid Calcium Ionized Calcium Phosphorus Magnesium Total Bilirubin AST ALT Alkaline Phosphatase Ammonia Total Creatine Kinase CK-MB (CK-2) CK-MB (CK-2) Rel Index Total Protein Albumin Urine WBC (Auto) Vancomycin Trough Salicylates Acetaminophen Plasma/Serum Alcohol Crossmatch 12/25/19 12/25/19 12/26/19 17:37 23:29 09:47 WBC 22.1 H RBC 2.83 L Hgb 7.9 L Hct 25.5 L MCH RDW 20.0 H Plt Count 894 H Lymph % (Auto) Hardy % (Auto) Hardy # Baso # Seg Neutrophils % Seg Neuts % (Manual) Lymphocytes % (Manual) Monocytes % (Manual) Seg Neutrophils # Seg Neutrophils # Man Lymphocytes # (Manual) Monocytes # (Manual) Eosinophils # (Manual) Basophils # (Manual) PT INR APTT ABG pH ABG pO2 ABG HCO3 ABG O2 Saturation ABG Base Excess ABG Hemoglobin Oxyhemoglobin Sodium Potassium Chloride Carbon Dioxide BUN Creatinine Glucose POC Glucose 120 H 140 H Lactic Acid Calcium Ionized Calcium Phosphorus Magnesium Total Bilirubin AST ALT Alkaline Phosphatase Ammonia Total Creatine Kinase CK-MB (CK-2) CK-MB (CK-2) Rel Index Total Protein Albumin Urine WBC (Auto) Vancomycin Trough Salicylates Acetaminophen Plasma/Serum Alcohol Crossmatch 12/26/19 12/26/19 12/26/19 09:47 11:46 17:52 WBC RBC Hgb Hct MCH RDW Plt Count Lymph % (Auto) Hardy % (Auto) Hardy # Baso # Seg Neutrophils % Seg Neuts % (Manual) Lymphocytes % (Manual) Monocytes % (Manual) Seg Neutrophils # Seg Neutrophils # Man Lymphocytes # (Manual) Monocytes # (Manual) Eosinophils # (Manual) Basophils # (Manual) PT INR APTT ABG pH ABG pO2 ABG HCO3 ABG O2 Saturation ABG Base Excess ABG Hemoglobin Oxyhemoglobin Sodium Potassium Chloride Carbon Dioxide 18 L BUN 65 H Creatinine 1.4 H Glucose 132 H POC Glucose 110 H 145 H Lactic Acid Calcium Ionized Calcium Phosphorus Magnesium Total Bilirubin AST ALT Alkaline Phosphatase Ammonia Total Creatine Kinase CK-MB (CK-2) CK-MB (CK-2) Rel Index Total Protein Albumin Urine WBC (Auto) Vancomycin Trough Salicylates Acetaminophen Plasma/Serum Alcohol Crossmatch 12/27/19 12/27/19 12/27/19 00:01 03:42 03:42 WBC 18.0 H RBC 2.86 L Hgb 8.0 L Hct 25.2 L MCH RDW 19.2 H Plt Count 873 H Lymph % (Auto) 8.4 L Hardy % (Auto) 7.5 H Hardy # 1.4 H Baso # 0.2 H Seg Neutrophils % 82.2 H Seg Neuts % (Manual) Lymphocytes % (Manual) Monocytes % (Manual) Seg Neutrophils # 14.8 H Seg Neutrophils # Man Lymphocytes # (Manual) Monocytes # (Manual) Eosinophils # (Manual) Basophils # (Manual) PT INR APTT ABG pH ABG pO2 ABG HCO3 ABG O2 Saturation ABG Base Excess ABG Hemoglobin Oxyhemoglobin Sodium Potassium Chloride Carbon Dioxide BUN 73 H Creatinine 1.4 H Glucose 119 H POC Glucose 124 H Lactic Acid Calcium Ionized Calcium Phosphorus Magnesium Total Bilirubin AST ALT Alkaline Phosphatase Ammonia Total Creatine Kinase CK-MB (CK-2) CK-MB (CK-2) Rel Index Total Protein Albumin Urine WBC (Auto) Vancomycin Trough Salicylates Acetaminophen Plasma/Serum Alcohol Crossmatch 12/27/19 12/27/19 12/27/19 05:45 11:45 17:29 WBC RBC Hgb Hct MCH RDW Plt Count Lymph % (Auto) Hardy % (Auto) Hardy # Baso # Seg Neutrophils % Seg Neuts % (Manual) Lymphocytes % (Manual) Monocytes % (Manual) Seg Neutrophils # Seg Neutrophils # Man Lymphocytes # (Manual) Monocytes # (Manual) Eosinophils # (Manual) Basophils # (Manual) PT INR APTT ABG pH ABG pO2 ABG HCO3 ABG O2 Saturation ABG Base Excess ABG Hemoglobin Oxyhemoglobin Sodium Potassium Chloride Carbon Dioxide BUN Creatinine Glucose POC Glucose 131 H 123 H 134 H Lactic Acid Calcium Ionized Calcium Phosphorus Magnesium Total Bilirubin AST ALT Alkaline Phosphatase Ammonia Total Creatine Kinase CK-MB (CK-2) CK-MB (CK-2) Rel Index Total Protein Albumin Urine WBC (Auto) Vancomycin Trough Salicylates Acetaminophen Plasma/Serum Alcohol Crossmatch 12/28/19 12/28/19 12/28/19 00:12 05:14 11:53 WBC RBC Hgb Hct MCH RDW Plt Count Lymph % (Auto) Hardy % (Auto) Hardy # Baso # Seg Neutrophils % Seg Neuts % (Manual) Lymphocytes % (Manual) Monocytes % (Manual) Seg Neutrophils # Seg Neutrophils # Man Lymphocytes # (Manual) Monocytes # (Manual) Eosinophils # (Manual) Basophils # (Manual) PT INR APTT ABG pH ABG pO2 ABG HCO3 ABG O2 Saturation ABG Base Excess ABG Hemoglobin Oxyhemoglobin Sodium Potassium Chloride Carbon Dioxide BUN Creatinine Glucose POC Glucose 138 H 130 H 146 H Lactic Acid Calcium Ionized Calcium Phosphorus Magnesium Total Bilirubin AST ALT Alkaline Phosphatase Ammonia Total Creatine Kinase CK-MB (CK-2) CK-MB (CK-2) Rel Index Total Protein Albumin Urine WBC (Auto) Vancomycin Trough Salicylates Acetaminophen Plasma/Serum Alcohol Crossmatch 12/28/19 12/29/19 12/29/19 17:39 00:01 18:11 WBC RBC Hgb Hct MCH RDW Plt Count Lymph % (Auto) Hardy % (Auto) Hardy # Baso # Seg Neutrophils % Seg Neuts % (Manual) Lymphocytes % (Manual) Monocytes % (Manual) Seg Neutrophils # Seg Neutrophils # Man Lymphocytes # (Manual) Monocytes # (Manual) Eosinophils # (Manual) Basophils # (Manual) PT INR APTT ABG pH ABG pO2 ABG HCO3 ABG O2 Saturation ABG Base Excess ABG Hemoglobin Oxyhemoglobin Sodium Potassium Chloride Carbon Dioxide BUN Creatinine Glucose POC Glucose 117 H 139 H 130 H Lactic Acid Calcium Ionized Calcium Phosphorus Magnesium Total Bilirubin AST ALT Alkaline Phosphatase Ammonia Total Creatine Kinase CK-MB (CK-2) CK-MB (CK-2) Rel Index Total Protein Albumin Urine WBC (Auto) Vancomycin Trough Salicylates Acetaminophen Plasma/Serum Alcohol Crossmatch 12/29/19 12/30/19 12/30/19 23:09 00:02 01:06 WBC 16.7 H RBC 2.91 L Hgb 8.2 L Hct 25.4 L MCH RDW 18.7 H Plt Count 708 H Lymph % (Auto) 9.4 L Hardy % (Auto) Hardy # 0.9 H Baso # Seg Neutrophils % 83.5 H Seg Neuts % (Manual) Lymphocytes % (Manual) Monocytes % (Manual) Seg Neutrophils # 14.0 H Seg Neutrophils # Man Lymphocytes # (Manual) Monocytes # (Manual) Eosinophils # (Manual) Basophils # (Manual) PT INR APTT ABG pH ABG pO2 ABG HCO3 ABG O2 Saturation ABG Base Excess ABG Hemoglobin Oxyhemoglobin Sodium Potassium Chloride Carbon Dioxide BUN Creatinine Glucose POC Glucose 120 H 114 H Lactic Acid Calcium Ionized Calcium Phosphorus Magnesium Total Bilirubin AST ALT Alkaline Phosphatase Ammonia Total Creatine Kinase CK-MB (CK-2) CK-MB (CK-2) Rel Index Total Protein Albumin Urine WBC (Auto) Vancomycin Trough Salicylates Acetaminophen Plasma/Serum Alcohol Crossmatch 12/30/19 12/30/19 12/30/19 01:06 04:23 05:18 WBC RBC Hgb Hct MCH RDW Plt Count Lymph % (Auto) Hardy % (Auto) Hardy # Baso # Seg Neutrophils % Seg Neuts % (Manual) Lymphocytes % (Manual) Monocytes % (Manual) Seg Neutrophils # Seg Neutrophils # Man Lymphocytes # (Manual) Monocytes # (Manual) Eosinophils # (Manual) Basophils # (Manual) PT INR APTT ABG pH ABG pO2 ABG HCO3 ABG O2 Saturation ABG Base Excess ABG Hemoglobin 8.3 L Oxyhemoglobin Sodium Potassium Chloride Carbon Dioxide BUN 70 H Creatinine Glucose 122 H POC Glucose 130 H Lactic Acid Calcium Ionized Calcium Phosphorus Magnesium Total Bilirubin AST ALT Alkaline Phosphatase Ammonia Total Creatine Kinase CK-MB (CK-2) CK-MB (CK-2) Rel Index Total Protein Albumin Urine WBC (Auto) Vancomycin Trough Salicylates Acetaminophen Plasma/Serum Alcohol Crossmatch 12/30/19 12/30/19 12/30/19 05:40 12:17 17:43 WBC RBC Hgb Hct MCH RDW Plt Count Lymph % (Auto) Hardy % (Auto) Hardy # Baso # Seg Neutrophils % Seg Neuts % (Manual) Lymphocytes % (Manual) Monocytes % (Manual) Seg Neutrophils # Seg Neutrophils # Man Lymphocytes # (Manual) Monocytes # (Manual) Eosinophils # (Manual) Basophils # (Manual) PT INR APTT ABG pH ABG pO2 ABG HCO3 ABG O2 Saturation ABG Base Excess ABG Hemoglobin Oxyhemoglobin Sodium Potassium Chloride Carbon Dioxide BUN Creatinine Glucose POC Glucose 135 H 132 H 118 H Lactic Acid Calcium Ionized Calcium Phosphorus Magnesium Total Bilirubin AST ALT Alkaline Phosphatase Ammonia Total Creatine Kinase CK-MB (CK-2) CK-MB (CK-2) Rel Index Total Protein Albumin Urine WBC (Auto) Vancomycin Trough Salicylates Acetaminophen Plasma/Serum Alcohol Crossmatch 12/30/19 12/31/19 12/31/19 23:29 05:19 17:50 WBC RBC Hgb Hct MCH RDW Plt Count Lymph % (Auto) Hardy % (Auto) Hardy # Baso # Seg Neutrophils % Seg Neuts % (Manual) Lymphocytes % (Manual) Monocytes % (Manual) Seg Neutrophils # Seg Neutrophils # Man Lymphocytes # (Manual) Monocytes # (Manual) Eosinophils # (Manual) Basophils # (Manual) PT INR APTT ABG pH ABG pO2 ABG HCO3 ABG O2 Saturation ABG Base Excess ABG Hemoglobin Oxyhemoglobin Sodium Potassium Chloride Carbon Dioxide BUN Creatinine Glucose POC Glucose 114 H 109 H 116 H Lactic Acid Calcium Ionized Calcium Phosphorus Magnesium Total Bilirubin AST ALT Alkaline Phosphatase Ammonia Total Creatine Kinase CK-MB (CK-2) CK-MB (CK-2) Rel Index Total Protein Albumin Urine WBC (Auto) Vancomycin Trough Salicylates Acetaminophen Plasma/Serum Alcohol Crossmatch 01/01/20 01/01/20 01/01/20 00:10 05:19 12:02 WBC RBC Hgb Hct MCH RDW Plt Count Lymph % (Auto) Hardy % (Auto) Hardy # Baso # Seg Neutrophils % Seg Neuts % (Manual) Lymphocytes % (Manual) Monocytes % (Manual) Seg Neutrophils # Seg Neutrophils # Man Lymphocytes # (Manual) Monocytes # (Manual) Eosinophils # (Manual) Basophils # (Manual) PT INR APTT ABG pH ABG pO2 ABG HCO3 ABG O2 Saturation ABG Base Excess ABG Hemoglobin Oxyhemoglobin Sodium Potassium Chloride Carbon Dioxide BUN Creatinine Glucose POC Glucose 131 H 122 H 136 H Lactic Acid Calcium Ionized Calcium Phosphorus Magnesium Total Bilirubin AST ALT Alkaline Phosphatase Ammonia Total Creatine Kinase CK-MB (CK-2) CK-MB (CK-2) Rel Index Total Protein Albumin Urine WBC (Auto) Vancomycin Trough Salicylates Acetaminophen Plasma/Serum Alcohol Crossmatch 01/02/20 01/02/20 01/02/20 00:24 05:36 11:41 WBC RBC Hgb Hct MCH RDW Plt Count Lymph % (Auto) Hardy % (Auto) Hardy # Baso # Seg Neutrophils % Seg Neuts % (Manual) Lymphocytes % (Manual) Monocytes % (Manual) Seg Neutrophils # Seg Neutrophils # Man Lymphocytes # (Manual) Monocytes # (Manual) Eosinophils # (Manual) Basophils # (Manual) PT INR APTT ABG pH ABG pO2 ABG HCO3 ABG O2 Saturation ABG Base Excess ABG Hemoglobin Oxyhemoglobin Sodium Potassium Chloride Carbon Dioxide BUN Creatinine Glucose POC Glucose 119 H 109 H 125 H Lactic Acid Calcium Ionized Calcium Phosphorus Magnesium Total Bilirubin AST ALT Alkaline Phosphatase Ammonia Total Creatine Kinase CK-MB (CK-2) CK-MB (CK-2) Rel Index Total Protein Albumin Urine WBC (Auto) Vancomycin Trough Salicylates Acetaminophen Plasma/Serum Alcohol Crossmatch 01/02/20 01/03/20 01/03/20 17:49 05:29 12:13 WBC RBC Hgb Hct MCH RDW Plt Count Lymph % (Auto) Hardy % (Auto) Hardy # Baso # Seg Neutrophils % Seg Neuts % (Manual) Lymphocytes % (Manual) Monocytes % (Manual) Seg Neutrophils # Seg Neutrophils # Man Lymphocytes # (Manual) Monocytes # (Manual) Eosinophils # (Manual) Basophils # (Manual) PT INR APTT ABG pH ABG pO2 ABG HCO3 ABG O2 Saturation ABG Base Excess ABG Hemoglobin Oxyhemoglobin Sodium Potassium Chloride Carbon Dioxide BUN Creatinine Glucose POC Glucose 130 H 132 H 113 H Lactic Acid Calcium Ionized Calcium Phosphorus Magnesium Total Bilirubin AST ALT Alkaline Phosphatase Ammonia Total Creatine Kinase CK-MB (CK-2) CK-MB (CK-2) Rel Index Total Protein Albumin Urine WBC (Auto) Vancomycin Trough Salicylates Acetaminophen Plasma/Serum Alcohol Crossmatch 01/03/20 01/04/20 01/04/20 17:32 00:19 05:26 WBC RBC Hgb Hct MCH RDW Plt Count Lymph % (Auto) Hardy % (Auto) Hardy # Baso # Seg Neutrophils % Seg Neuts % (Manual) Lymphocytes % (Manual) Monocytes % (Manual) Seg Neutrophils # Seg Neutrophils # Man Lymphocytes # (Manual) Monocytes # (Manual) Eosinophils # (Manual) Basophils # (Manual) PT INR APTT ABG pH ABG pO2 ABG HCO3 ABG O2 Saturation ABG Base Excess ABG Hemoglobin Oxyhemoglobin Sodium Potassium Chloride Carbon Dioxide BUN Creatinine Glucose POC Glucose 127 H 141 H 129 H Lactic Acid Calcium Ionized Calcium Phosphorus Magnesium Total Bilirubin AST ALT Alkaline Phosphatase Ammonia Total Creatine Kinase CK-MB (CK-2) CK-MB (CK-2) Rel Index Total Protein Albumin Urine WBC (Auto) Vancomycin Trough Salicylates Acetaminophen Plasma/Serum Alcohol Crossmatch 01/04/20 01/04/20 01/05/20 11:39 17:29 05:22 WBC RBC Hgb Hct MCH RDW Plt Count Lymph % (Auto) Hardy % (Auto) Hardy # Baso # Seg Neutrophils % Seg Neuts % (Manual) Lymphocytes % (Manual) Monocytes % (Manual) Seg Neutrophils # Seg Neutrophils # Man Lymphocytes # (Manual) Monocytes # (Manual) Eosinophils # (Manual) Basophils # (Manual) PT INR APTT ABG pH ABG pO2 ABG HCO3 ABG O2 Saturation ABG Base Excess ABG Hemoglobin Oxyhemoglobin Sodium Potassium Chloride Carbon Dioxide BUN Creatinine Glucose POC Glucose 167 H 132 H 121 H Lactic Acid Calcium Ionized Calcium Phosphorus Magnesium Total Bilirubin AST ALT Alkaline Phosphatase Ammonia Total Creatine Kinase CK-MB (CK-2) CK-MB (CK-2) Rel Index Total Protein Albumin Urine WBC (Auto) Vancomycin Trough Salicylates Acetaminophen Plasma/Serum Alcohol Crossmatch 01/05/20 01/05/20 01/05/20 12:25 17:40 18:06 WBC RBC Hgb Hct MCH RDW Plt Count Lymph % (Auto) Hardy % (Auto) Hardy # Baso # Seg Neutrophils % Seg Neuts % (Manual) Lymphocytes % (Manual) Monocytes % (Manual) Seg Neutrophils # Seg Neutrophils # Man Lymphocytes # (Manual) Monocytes # (Manual) Eosinophils # (Manual) Basophils # (Manual) PT INR APTT ABG pH 7.472 H ABG pO2 99.2 H ABG HCO3 ABG O2 Saturation ABG Base Excess ABG Hemoglobin 7.8 L Oxyhemoglobin Sodium Potassium Chloride Carbon Dioxide BUN Creatinine Glucose POC Glucose 106 H 110 H Lactic Acid Calcium Ionized Calcium Phosphorus Magnesium Total Bilirubin AST ALT Alkaline Phosphatase Ammonia Total Creatine Kinase CK-MB (CK-2) CK-MB (CK-2) Rel Index Total Protein Albumin Urine WBC (Auto) Vancomycin Trough Salicylates Acetaminophen Plasma/Serum Alcohol Crossmatch 01/06/20 01/06/20 01/06/20 00:11 05:16 11:30 WBC RBC Hgb Hct MCH RDW Plt Count Lymph % (Auto) Hardy % (Auto) Hardy # Baso # Seg Neutrophils % Seg Neuts % (Manual) Lymphocytes % (Manual) Monocytes % (Manual) Seg Neutrophils # Seg Neutrophils # Man Lymphocytes # (Manual) Monocytes # (Manual) Eosinophils # (Manual) Basophils # (Manual) PT INR APTT ABG pH ABG pO2 ABG HCO3 ABG O2 Saturation ABG Base Excess ABG Hemoglobin Oxyhemoglobin Sodium Potassium Chloride Carbon Dioxide BUN Creatinine Glucose POC Glucose 108 H 124 H 125 H Lactic Acid Calcium Ionized Calcium Phosphorus Magnesium Total Bilirubin AST ALT Alkaline Phosphatase Ammonia Total Creatine Kinase CK-MB (CK-2) CK-MB (CK-2) Rel Index Total Protein Albumin Urine WBC (Auto) Vancomycin Trough Salicylates Acetaminophen Plasma/Serum Alcohol Crossmatch Allied health notes reviewed: nursing
[2020-01-06] MEDS: QUEtiapine 100 MG TAB PO SCH (21:03)
[2020-01-07 05:26] LABS: Basophils % (Auto) 0.3 % (0.0-1.8); Eosinophils # (Auto) 0.1 K/mm3 (0.0-0.4); Eosinophils % (Auto) 0.8 % (0.0-4.3); Hematocrit 28.1 % (30.3-42.9); Hemoglobin 9.3 gm/dl (10.1-14.3); Lymphocytes # (Auto) 1.4 K/mm3 (1.2-5.4); Lymphocytes % (Auto) 8.4 % (13.4-35.0); Mean Corpuscular HGB Conc 33 % (30-34); Mean Corpuscular Volume 85 fl (79-97); Monocytes % (Auto) 6.1 % (0.0-7.3); Platelet Count 526 K/mm3 (140-440); Red Blood Count 3.29 M/mm3 (3.65-5.03); Red Cell Distribution Width 18.2 % (13.2-15.2)
[2020-01-07 05:41] LABS: BUN/Creatinine Ratio 73; Blood Urea Nitrogen 44 mg/dL (7-17); Hemolysis Index 3
[2020-01-07] MEDS: LANSOPRAZOLE 30 MG SOLUTAB FEEDTUBE SCH (09:02)
[2020-01-07] MEDS: MIRTAZAPINE 30 MG TAB PO SCH (09:02)
[2020-01-07] MEDS: hydrOXYzine PAMOATE 25 MG CAP PO SCH ×2 (09:02→21:39)
[2020-01-07] MEDS: GLYCOPYRROLATE 1 MG TAB PO SCH ×3 (09:02→21:39)
[2020-01-07] MEDS: QUEtiapine 200 MG TAB PO SCH (09:03)
[2020-01-07] MEDS: levETIRAcetam 500 MG/5 ML ORAL LIQD PO SCH ×2 (09:03→21:39)
[2020-01-07] MEDS: TAMSULOSIN 0.4 MG CAP PO SCH (09:03)
[2020-01-07] MEDS: SERTRALINE 50 MG TAB PO SCH (09:03)
--- NOTE | 2020-01-07 09:36 | Progress Note ---
Assessment and Plan / Anoxic brain injury: suspected CT head: No acute abnormality. neurology consult placed, EEG ordered showed Generalized slowing. No seizures or epileptiform activity. Per neurology : Patient found to have intact corneal/VOR/cough reflexes, and is withdrawing lower extremities, therefore patient is not found to be brain . However, given that patient had an out of hospital cardiac arrest, [facility], the likelihood of meaningful neurological recovery is somewhat low. -Patient now opening her eyes and able to follow any command by nodding head /Acute Respiratory failure -s/p intubation, s/p trach and PEG on 12/12 with mechanical ventilation - CTA was done and negative for PE, - Echo quality is poor, showed diastolic dysfunction - continue ICU monitoring - wean OFF O2/vent as tolerated, placed on T-piece but not tolerating /Anemia, microcytic -Continue to hold heparin, transfused 2 units of packed RBC -ordered stool for occult blood - pending /Acute metabolic encephalopathy/toxic encephalopathy due to the above - cont supportive care /Hyperammonemia - likely from liver disease related to EtOH abuse - Patient had elevated ammonia level and treated with lactulose /Metabolic Acidosis -Alcohol ketoacidosis vs hypoprofusion -Continue to monitor /ELevated LFTs, stable now - due to ischemic hepatitis. /Leucocytosis with sepsis - Source MRSA bacteremia and MSSA pneumonia. UA showed pyuria. RUQ US showed no ascites. - Repeat TTE negative for vegetation. Completed 7 days of Ceftriaxone on 11/29/2019. -Treated with Abx vancomycin 1 gm IV q 12 hour total 2 week till 12/30/2019 /MSSA pneumonia: Status post vancomycin till 12/30/2019 /ALcohol USe Disorder - given ongoing Alcohol use almost daily, s/p IV Thiamine - monitor /Severe hypokalemia -Repleted /Seizure disorder: treat with Keppra /H. Influenzae, tracheobronchitis, treated with abx DNR CODE STATUS The high probability of a clinically significant, sudden or life threatening deterioration of the [neurology,respiratory] system(s) required my full and direct attention, intervention and personal management. The aggregate critical care time was [32] minutes. This time is in addition to time spent performing reported procedures but includes the following: [x] Data Review and interpretation [x] Patient assessment and monitoring of vital signs [x] Documentation [x] Medication orders and management Disposition: prognosis guarded. Family okay for DNR, placement pending 12/31/19: still intubated via trach, no restraints needed, FiO2 30%, PEEP 6, Difficulty getting to Hospice, mother wants to kept updated. Patient has 4 kids, 2 sons in skilled nursing, 1 son is transgender and not involved per mother; Daughter is Deborah who is [employer]K 01/01/20: Still intubated, but patient opening her eyes but does not follow any command. Unable to set up inpatient hospice 01/01 pending placement, patient is self funded 01/02 pending placement, patient is self funded 01/03 pending placement, patient is self funded. still on vent. updated patient's mother 01/04 pending placement, patient is self funded. still on vent. 01/05 pending placement, patient is tolerating T-piece trial today -off vent. 01/06 patient getting T-piece trial daily, need placement. Patient is unfunded Brief History: 54-year-old female with a past medical history of Hypertension, Depression, Tobacco use Disorder, Alcohol use Disorder as confirmed by Daughter and pt's mother presents to the hospital status post cardiac arrest at home. EMS found pt in [place]. They were unable to intubate patient with a ET tube because she was clenching down therefore Joe airway placed. Per the ED physician who evaluated pt, Patient presented with a pulse, intermittent respirations, and bagging support via Joe airway with O2 sat of 100%. Accu-Chek of 71 obtained by EMS. She was intubated in the ER and called for admission. Following admission patient was diagnosed with anoxic brain injury, sepsis with MRSA bacteremia and MSSA pneumonia, alcoholic liver disease. Family member wished for full code, patient currently getting treated with IV antibiotics for sepsis, status post trach and PEG on 12/13/19. Plan to wean off from the vent and put on T-piece b ut patient is not tolerating. Patient is uninsured, waiting for placement, guarded prognosis. Physical exam: General appearance: Present: other (on vent, elderly female, open eyes) - EENT Eyes: no scleral icterus, no conjunctival injection, pupil not reactive ENT: clear oral mucosa, dentition normal, no oropharyngeal erythema Ears: bilateral: normal - Neck Neck: trach on place - Respiratory Respiratory effort: other (on vent) Respiratory: bilateral: rales - Cardiovascular Rhythm: regular Heart Sounds: Present: S1 & S2. Absent: gallop, rub Extremities: pulses intact, No edema, normal color - Gastrointestinal General gastrointestinal: Present: soft, non-tender, non-distended, normal bowel sounds - Integumentary Integumentary: clear, warm, dry - Musculoskeletal Musculoskeletal: No joint swelling or tenderness - Neurologic Neurologic: other (intubated with trach and 2+ reflexes throughout). respond to commend and nods head. Moves only right hand - Psychiatric Psychiatric: Unable to assess as intubated with trach Subjective Date of service: 01/07/20 Principal diagnosis: Ac cardiopulmonary arrest; Ac hypoxemic resp failure; Acute encephalopathy Interval history: Patient seen and examined Can open her eyes, patient now DNR Discussed with RN at bedside, discussed with nurse case manager for disposition planning Tolerating tube feeding with PEG tube, needs placement/hospice - uninsured Objective - Constitutional Vitals: Vital Signs - 12hr 01/06/20 01/06/20 01/06/20 22:00 23:00 23:22 Temperature Pulse Rate 116 H 113 H 112 H Pulse Rate [ From Monitor] Respiratory 24 24 24 Rate Blood Pressure 124/86 115/79 115/79 O2 Sat by Pulse 100 100 100 Oximetry O2 Sat by Pulse Oximetry [ Assessment] 01/07/20 01/07/20 01/07/20 00:00 00:10 00:32 Temperature 98.7 F Pulse Rate 109 H 111 H Pulse Rate [ 109 H From Monitor] Respiratory 24 24 Rate Blood Pressure 123/83 123/83 O2 Sat by Pulse 100 100 100 Oximetry O2 Sat by Pulse Oximetry [ Assessment] 01/07/20 01/07/20 01/07/20 00:33 01:00 02:00 Temperature Pulse Rate 110 H 110 H Pulse Rate [ From Monitor] Respiratory 24 24 Rate Blood Pressure 115/78 125/86 O2 Sat by Pulse 100 100 Oximetry O2 Sat by Pulse 96 Oximetry [ Assessment] 01/07/20 01/07/20 01/07/20 03:00 04:00 04:06 Temperature 98.8 F Pulse Rate 112 H 112 H Pulse Rate [ 109 H From Monitor] Respiratory 24 24 24 Rate Blood Pressure 122/87 122/89 O2 Sat by Pulse 100 100 100 Oximetry O2 Sat by Pulse Oximetry [ Assessment] 01/07/20 01/07/20 01/07/20 05:00 05:10 05:13 Temperature Pulse Rate 111 H 110 H 105 H Pulse Rate [ From Monitor] Respiratory 24 Rate Blood Pressure 121/87 121/87 O2 Sat by Pulse 100 100 Oximetry O2 Sat by Pulse Oximetry [ Assessment] 01/07/20 01/07/20 01/07/20 06:00 08:54 09:02 Temperature Pulse Rate 112 H 114 H Pulse Rate [ From Monitor] Respiratory 24 Rate Blood Pressure 127/88 118/81 O2 Sat by Pulse 100 100 98 Oximetry O2 Sat by Pulse Oximetry [ Assessment] - Labs CBC & Chem 7: 01/07/20 04:12 01/07/20 04:12 Labs: Abnormal lab results 01/06/20 01/06/20 01/06/20 Range/Units 11:30 17:53 23:51 WBC (4.5-11.0) K/mm3 RBC (3.65-5.03) M/mm3 Hgb (10.1-14.3) gm/dl Hct (30.3-42.9) % RDW (13.2-15.2) % Plt Count (140-440) K/mm3 Lymph % (Auto) (13.4-35.0) % [place] # (0.0-0.8) K/mm3 Seg Neutrophils % (40.0-70.0) % Seg Neutrophils # (1.8-7.7) K/mm3 Sodium (137-145) mmol/L Carbon Dioxide (22-30) mmol/L BUN (7-17) mg/dL Creatinine (0.7-1.2) mg/dL Glucose (65-100) mg/dL POC Glucose 125 H 166 H 128 H (70-105) 01/07/20 01/07/20 01/07/20 Range/Units 04:12 04:12 04:45 WBC 16.5 H (4.5-11.0) K/mm3 RBC 3.29 L (3.65-5.03) M/mm3 Hgb 9.3 L (10.1-14.3) gm/dl Hct 28.1 L (30.3-42.9) % RDW 18.2 H (13.2-15.2) % Plt Count 526 H (140-440) K/mm3 Lymph % (Auto) 8.4 L (13.4-35.0) % [place] # 1.0 H (0.0-0.8) K/mm3 Seg Neutrophils % 84.4 H (40.0-70.0) % Seg Neutrophils # 13.9 H (1.8-7.7) K/mm3 Sodium 136 L (137-145) mmol/L Carbon Dioxide 21 L (22-30) mmol/L BUN 44 H (7-17) mg/dL Creatinine 0.6 L (0.7-1.2) mg/dL Glucose 124 H (65-100) mg/dL POC Glucose 134 H (70-105)
--- NOTE | 2020-01-07 13:19 | Progress Note ---
Assessment and Plan Acute cardiopulmonary arrest with ROSC Acute hypoxemic respiratory failure on MVS MRSA Bacteremia MRSA pneumonia Acute moutzycmi-osryw-jdaqpo encephalopathy Metabolic acidosis/alcoholic acidosis/Lactic acidosis( resolved) Ischemic hepatitis Leucocytosis - persistent Erythrocytosis Tobacco use disorder Alcohol use Disorder -CBC, BMP prn -Trach care, airway clearance, secretion management( continue scopolamine patch and Robinul) -CXR, ABG prn -Weaning trials as tolerated -Continue contact isolation for MRSA -Continue all care as documented below. -Continue with MVS, Lung protective strategies, monitor airway pressures -VAP bundle addressed -Continue aspiration precautions, HOB>40 -Continue daily assessment for readiness for SBT -Continue Stress ulcer prophylaxis -Continue enteric nutritional support at goal rate. -Continue to monitor glycemic control, with target blood glucose 140-180 mg/dL while critically ill. -Avoid hypoglycemia - Continue to wean supplemental oxygen for target O2 sat's > 90% -Continue thiamine, multivitamin and electrolyte replacement -Continue to avoid nephrotoxins, adjust all medications for GFR and CrCL - Continue bronchodilators with pulmonary hygiene - Continue prn analgesia per CPOT score - Continue to maintain of sleep-wake cycle, avoid delirium - PT/OT/ROM exercises - Continue mobility protocol and skin assessment per protocol for pressure ulcer prevention - Continue to monitor for clinical seizures - continue other care per attending / other consultants CONDITION: FAIR PROGNOSIS: GUARDED CODE STATUS: DNAR Subjective Date of service: 01/07/20 Principal diagnosis: Ac cardiopulmonary arrest; Ac hypoxemic resp failure; Acute encephalopathy Interval history: Patient is seen today for: Acute cardiopulmonary arrest with ROSC; Acute hypoxemic respiratory failure; Acute metabolic-toxic encephalopathy; Ischemic hepatitis; Leucocytosis with lactic acidosis; Tobacco use disorder; Alcohol use Disorder; s/p tracheostomy; s/p PEG Seen and examined at bedside; 24hour events reviewed; nursing and respiratory care staff consulted; no adverse overnight events reported to me; resting p eacefully in bed; more awake and alert, tracking voice , tolerated ATP trials yesterday; no fevers s/p Trach Shiley 8, AC-VC24/400/6/30% Mucous plugs overnight, required some suctioning Objective Vital Signs - 12hr 01/07/20 01/07/20 01/07/20 02:00 03:00 04:00 Temperature 98.8 F Pulse Rate 110 H 112 H 112 H Pulse Rate [ From Monitor] Respiratory 24 24 24 Rate Respiratory Rate [Bilateral Foot] Blood Pressure 125/86 122/87 122/89 O2 Sat by Pulse 100 100 100 Oximetry 01/07/20 01/07/20 01/07/20 04:06 05:00 05:10 Temperature Pulse Rate 111 H 110 H Pulse Rate [ 109 H From Monitor] Respiratory 24 24 Rate Respiratory Rate [Bilateral Foot] Blood Pressure 121/87 121/87 O2 Sat by Pulse 100 100 100 Oximetry 01/07/20 01/07/20 01/07/20 05:13 06:00 07:00 Temperature Pulse Rate 105 H 112 H 103 H Pulse Rate [ From Monitor] Respiratory 24 24 Rate Respiratory Rate [Bilateral Foot] Blood Pressure 127/88 130/89 O2 Sat by Pulse 100 100 Oximetry 01/07/20 01/07/20 01/07/20 08:00 08:54 09:00 Temperature Pulse Rate 115 H 114 H 115 H Pulse Rate [ From Monitor] Respiratory 24 17 Rate Respiratory Rate [Bilateral Foot] Blood Pressure 118/81 118/81 114/86 O2 Sat by Pulse 100 100 99 Oximetry 01/07/20 01/07/20 01/07/20 09:02 10:00 11:00 Temperature Pulse Rate 135 H 133 H Pulse Rate [ From Monitor] Respiratory 30 H 29 H Rate Respiratory 28 H Rate [Bilateral Foot] Blood Pressure 124/77 121/72 O2 Sat by Pulse 98 99 99 Oximetry 01/07/20 12:00 Temperature Pulse Rate 127 H Pulse Rate [ From Monitor] Respiratory 30 H Rate Respiratory Rate [Bilateral Foot] Blood Pressure 130/86 O2 Sat by Pulse 100 Oximetry Constitutional: no acute distress, other (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, with midline tracheostomy to MVS, comfortable) Eyes: non-icteric ENT: oropharynx moist, other (s/p trach) Neck: supple, no lymphadenopathy, no JVD Effort: normal Ascultation: Bilateral: diminished breath sounds, rhonchi Percussion: Bilateral: not dull Cardiovascular: regular rate and rhythm (tachycardia), other (S1,S2) Gastrointestinal: normoactive bowel sounds, soft, non-tender, non-distended Integumentary: normal Extremities: no cyanosis, no edema, pulses normal, no ischemia or petechiae Neurologic: pupils equal and round, other (awake, tracking voice ) CBC and BMP: 01/07/20 04:12 01/07/20 04:12 ABG, PT/INR, D-dimer: ABG ABG pH 7.472 pH Units (7.350-7.450) H 01/05/20 18:06 ABG pCO2 34.5 mm Hg 01/05/20 18:06 ABG pO2 99.2 mm Hg (80.0-90.0) H 01/05/20 18:06 ABG O2 Saturation 97.8 % (95.0-99.0) 01/05/20 18:06 PT/INR, D-dimer PT 17.0 Sec. (12.2-14.9) H 11/23/19 03:47 INR 1.36 (0.87-1.13) H 11/23/19 03:47 Abnormal lab findings: Abnormal Labs 11/22/19 11/22/19 11/22/19 23:17 23:18 23:27 WBC 21.2 H RBC 3.59 L Hgb 9.8 L Hct MCH 27 L RDW 18.6 H Plt Count 454 H Lymph % (Auto) [place] % (Auto) [place] # Baso # Seg Neutrophils % Seg Neuts % (Manual) 86.0 H Lymphocytes % (Manual) 9.0 L Monocytes % (Manual) Seg Neutrophils # Seg Neutrophils # Man 18.2 H Lymphocytes # (Manual) Monocytes # (Manual) 1.1 H Eosinophils # (Manual) Basophils # (Manual) PT INR APTT ABG pH ABG pO2 ABG HCO3 ABG O2 Saturation ABG Base Excess ABG Hemoglobin Oxyhemoglobin Sodium Potassium Chloride Carbon Dioxide BUN Creatinine Glucose POC Glucose 53 L Lactic Acid Calcium Ionized Calcium Phosphorus Magnesium Total Bilirubin AST ALT Alkaline Phosphatase Ammonia Total Creatine Kinase CK-MB (CK-2) CK-MB (CK-2) Rel Index Total Protein Albumin Urine WBC (Auto) 40.0 H Vancomycin Trough Salicylates Acetaminophen Plasma/Serum Alcohol Crossmatch 11/22/19 11/22/19 11/22/19 23:27 23:27 23:27 WBC RBC Hgb Hct MCH RDW Plt Count Lymph % (Auto) [place] % (Auto) [place] # Baso # Seg Neutrophils % Seg Neuts % (Manual) Lymphocytes % (Manual) Monocytes % (Manual) Seg Neutrophils # Seg Neutrophils # Man Lymphocytes # (Manual) Monocytes # (Manual) Eosinophils # (Manual) Basophils # (Manual) PT INR APTT ABG pH ABG pO2 ABG HCO3 ABG O2 Saturation ABG Base Excess ABG Hemoglobin Oxyhemoglobin Sodium Potassium 2.4 L* Chloride 85.1 L Carbon Dioxide 19 L BUN Creatinine 0.5 L Glucose 261 H POC Glucose Lactic Acid Calcium Ionized Calcium Phosphorus Magnesium Total Bilirubin AST 609 H ALT 152 H Alkaline Phosphatase 160 H Ammonia 117.0 H Total Creatine Kinase 139 H CK-MB (CK-2) 8.3 H CK-MB (CK-2) Rel Index 5.9 H Total Protein Albumin 3.6 L Urine WBC (Auto) Vancomycin Trough Salicylates < 0.3 L Acetaminophen Plasma/Serum Alcohol Crossmatch 11/22/19 11/22/19 11/23/19 23:27 23:27 01:10 WBC RBC Hgb Hct MCH RDW Plt Count Lymph % (Auto) [place] % (Auto) [place] # Baso # Seg Neutrophils % Seg Neuts % (Manual) Lymphocytes % (Manual) Monocytes % (Manual) Seg Neutrophils # Seg Neutrophils # Man Lymphocytes # (Manual) Monocytes # (Manual) Eosinophils # (Manual) Basophils # (Manual) PT INR APTT ABG pH 7.273 L ABG pO2 209.7 H ABG HCO3 ABG O2 Saturation 99.2 H ABG Base Excess -3.9 L ABG Hemoglobin 10.6 L Oxyhemoglobin 93.9 L Sodium Potassium Chloride Carbon Dioxide BUN Creatinine Glucose POC Glucose Lactic Acid Calcium Ionized Calcium Phosphorus Magnesium Total Bilirubin AST ALT Alkaline Phosphatase Ammonia Total Creatine Kinase CK-MB (CK-2) CK-MB (CK-2) Rel Index Total Protein Albumin Urine WBC (Auto) Vancomycin Trough Salicylates Acetaminophen < 5.0 L Plasma/Serum Alcohol 0.08 H Crossmatch 11/23/19 11/23/19 11/23/19 01:19 01:19 03:47 WBC RBC Hgb Hct MCH RDW Plt Count Lymph % (Auto) [place] % (Auto) [place] # Baso # Seg Neutrophils % Seg Neuts % (Manual) Lymphocytes % (Manual) Monocytes % (Manual) Seg Neutrophils # Seg Neutrophils # Man Lymphocytes # (Manual) Monocytes # (Manual) Eosinophils # (Manual) Basophils # (Manual) PT 16.3 H INR 1.29 H APTT ABG pH ABG pO2 ABG HCO3 ABG O2 Saturation ABG Base Excess ABG Hemoglobin Oxyhemoglobin Sodium Potassium Chloride Carbon Dioxide BUN Creatinine Glucose POC Glucose Lactic Acid 2.10 H* 5.00 H* Calcium Ionized Calcium Phosphorus Magnesium Total Bilirubin AST ALT Alkaline Phosphatase Ammonia Total Creatine Kinase CK-MB (CK-2) CK-MB (CK-2) Rel Index Total Protein Albumin Urine WBC (Auto) Vancomycin Trough Salicylates Acetaminophen Plasma/Serum Alcohol Crossmatch 11/23/19 11/23/19 11/23/19 03:47 03:47 04:53 WBC RBC Hgb 9.4 L Hct MCH RDW Plt Count Lymph % (Auto) [place] % (Auto) [place] # Baso # Seg Neutrophils % Seg Neuts % (Manual) Lymphocytes % (Manual) Monocytes % (Manual) Seg Neutrophils # Seg Neutrophils # Man Lymphocytes # (Manual) Monocytes # (Manual) Eosinophils # (Manual) Basophils # (Manual) PT 17.0 H INR 1.36 H APTT 128.2 H* ABG pH ABG pO2 ABG HCO3 ABG O2 Saturation ABG Base Excess ABG Hemoglobin Oxyhemoglobin Sodium Potassium Chloride Carbon Dioxide 18 L BUN Creatinine 0.5 L Glucose 105 H POC Glucose Lactic Acid Calcium 8.3 L Ionized Calcium Phosphorus 2.40 L Magnesium Total Bilirubin 1.30 H AST 761 H ALT 158 H Alkaline Phosphatase 143 H Ammonia Total Creatine Kinase CK-MB (CK-2) CK-MB (CK-2) Rel Index Total Protein Albumin 2.8 L Urine WBC (Auto) Vancomycin Trough Salicylates Acetaminophen Plasma/Serum Alcohol Crossmatch 11/23/19 11/23/19 11/23/19 05:12 06:32 06:32 WBC 16.8 H RBC 3.31 L Hgb 8.9 L Hct 28.7 L MCH 27 L RDW 18.6 H Plt Count Lymph % (Auto) [place] % (Auto) [place] # Baso # Seg Neutrophils % Seg Neuts % (Manual) 94.0 H Lymphocytes % (Manual) 1.0 L Monocytes % (Manual) Seg Neutrophils # Seg Neutrophils # Man 15.8 H Lymphocytes # (Manual) 0.2 L Monocytes # (Manual) Eosinophils # (Manual) Basophils # (Manual) PT INR APTT ABG pH ABG pO2 ABG HCO3 ABG O2 Saturation ABG Base Excess -3.2 L ABG Hemoglobin 9.0 L Oxyhemoglobin 93.6 L Sodium Potassium Chloride Carbon Dioxide BUN Creatinine Glucose POC Glucose Lactic Acid Calcium Ionized Calcium 4.5 L Phosphorus Magnesium Total Bilirubin AST ALT Alkaline Phosphatase Ammonia Total Creatine Kinase CK-MB (CK-2) CK-MB (CK-2) Rel Index Total Protein Albumin Urine WBC (Auto) Vancomycin Trough Salicylates Acetaminophen Plasma/Serum Alcohol Crossmatch 11/23/19 11/24/19 11/24/19 06:32 04:35 04:35 WBC RBC Hgb Hct MCH RDW Plt Count Lymph % (Auto) [place] % (Auto) [place] # Baso # Seg Neutrophils % Seg Neuts % (Manual) Lymphocytes % (Manual) Monocytes % (Manual) Seg Neutrophils # Seg Neutrophils # Man Lymphocytes # (Manual) Monocytes # (Manual) Eosinophils # (Manual) Basophils # (Manual) PT INR APTT ABG pH ABG pO2 ABG HCO3 ABG O2 Saturation ABG Base Excess ABG Hemoglobin Oxyhemoglobin Sodium Potassium Chloride Carbon Dioxide BUN Creatinine Glucose POC Glucose Lactic Acid 3.30 H* Calcium Ionized Calcium Phosphorus Magnesium 1.40 L Total Bilirubin AST ALT Alkaline Phosphatase Ammonia 98.0 H Total Creatine Kinase CK-MB (CK-2) CK-MB (CK-2) Rel Index Total Protein Albumin Urine WBC (Auto) Vancomycin Trough Salicylates Acetaminophen Plasma/Serum Alcohol Crossmatch 11/24/19 11/25/19 11/25/19 05:22 04:34 05:05 WBC 17.3 H RBC 2.88 L Hgb 7.8 L Hct 24.6 L MCH 27 L RDW 18.5 H Plt Count Lymph % (Auto) 7.7 L [place] % (Auto) 9.7 H [place] # 1.7 H Baso # Seg Neutrophils % 82.2 H Seg Neuts % (Manual) Lymphocytes % (Manual) Monocytes % (Manual) Seg Neutrophils # 14.2 H Seg Neutrophils # Man Lymphocytes # (Manual) Monocytes # (Manual) Eosinophils # (Manual) Basophils # (Manual) PT INR APTT ABG pH 7.475 H ABG pO2 ABG HCO3 29.4 H 32.3 H ABG O2 Saturation ABG Base Excess 5.4 H 6.9 H ABG Hemoglobin 9.0 L 10.6 L Oxyhemoglobin 94.3 L Sodium Potassium Chloride Carbon Dioxide BUN Creatinine Glucose POC Glucose Lactic Acid Calcium Ionized Calcium Phosphorus Magnesium Total Bilirubin AST ALT Alkaline Phosphatase Ammonia Total Creatine Kinase CK-MB (CK-2) CK-MB (CK-2) Rel Index Total Protein Albumin Urine WBC (Auto) Vancomycin Trough Salicylates Acetaminophen Plasma/Serum Alcohol Crossmatch 11/25/19 11/25/19 11/26/19 05:05 22:46 03:31 WBC RBC Hgb Hct MCH RDW Plt Count Lymph % (Auto) [place] % (Auto) [place] # Baso # Seg Neutrophils % Seg Neuts % (Manual) Lymphocytes % (Manual) Monocytes % (Manual) Seg Neutrophils # Seg Neutrophils # Man Lymphocytes # (Manual) Monocytes # (Manual) Eosinophils # (Manual) Basophils # (Manual) PT INR APTT ABG pH 7.459 H ABG pO2 ABG HCO3 34.2 H ABG O2 Saturation ABG Base Excess 9.4 H ABG Hemoglobin 7.6 L Oxyhemoglobin 94.8 L Sodium 152 H D 147 H Potassium 2.3 L* D 2.8 L* D Chloride 107.8 H Carbon Dioxide 31 H D 33 H BUN Creatinine 0.6 L 0.6 L Glucose 148 H 177 H POC Glucose Lactic Acid Calcium Ionized Calcium Phosphorus Magnesium Total Bilirubin AST 105 H ALT 71 H Alkaline Phosphatase 155 H Ammonia Total Creatine Kinase CK-MB (CK-2) CK-MB (CK-2) Rel Index Total Protein 5.2 L D Albumin 2.9 L Urine WBC (Auto) Vancomycin Trough Salicylates Acetaminophen Plasma/Serum Alcohol Crossmatch 11/26/19 11/26/19 11/27/19 08:24 08:24 04:20 WBC 12.0 H RBC 3.00 L Hgb 8.0 L 9.3 L Hct 25.9 L 29.7 L MCH 27 L RDW 18.5 H Plt Count Lymph % (Auto) [place] % (Auto) [place] # Baso # Seg Neutrophils % Seg Neuts % (Manual) 89.0 H Lymphocytes % (Manual) 4.0 L Monocytes % (Manual) Seg Neutrophils # Seg Neutrophils # Man 10.7 H Lymphocytes # (Manual) 0.5 L Monocytes # (Manual) Eosinophils # (Manual) Basophils # (Manual) PT INR APTT ABG pH ABG pO2 ABG HCO3 ABG O2 Saturation ABG Base Excess ABG Hemoglobin Oxyhemoglobin Sodium 146 H Potassium 3.4 L D Chloride Carbon Dioxide BUN Creatinine 0.5 L Glucose 165 H POC Glucose Lactic Acid Calcium Ionized Calcium Phosphorus Magnesium Total Bilirubin AST 57 H ALT Alkaline Phosphatase 166 H Ammonia Total Creatine Kinase CK-MB (CK-2) CK-MB (CK-2) Rel Index Total Protein Albumin 2.9 L Urine WBC (Auto) Vancomycin Trough Salicylates Acetaminophen Plasma/Serum Alcohol Crossmatch 11/27/19 11/27/19 11/27/19 04:28 04:28 04:42 WBC RBC Hgb Hct MCH RDW Plt Count Lymph % (Auto) [place] % (Auto) [place] # Baso # Seg Neutrophils % Seg Neuts % (Manual) Lymphocytes % (Manual) Monocytes % (Manual) Seg Neutrophils # Seg Neutrophils # Man Lymphocytes # (Manual) Monocytes # (Manual) Eosinophils # (Manual) Basophils # (Manual) PT INR APTT ABG pH 7.470 H ABG pO2 74.0 L ABG HCO3 33.8 H ABG O2 Saturation ABG Base Excess 9.1 H ABG Hemoglobin 8.7 L Oxyhemoglobin 94.7 L Sodium 146 H Potassium 2.9 L* Chloride Carbon Dioxide BUN 25 H Creatinine Glucose 213 H POC Glucose Lactic Acid Calcium Ionized Calcium Phosphorus 1.00 L Magnesium Total Bilirubin AST ALT Alkaline Phosphatase Ammonia Total Creatine Kinase CK-MB (CK-2) CK-MB (CK-2) Rel Index Total Protein Albumin Urine WBC (Auto) Vancomycin Trough Salicylates Acetaminophen Plasma/Serum Alcohol Crossmatch 11/27/19 11/27/19 11/27/19 05:37 12:20 15:46 WBC RBC Hgb Hct MCH RDW Plt Count Lymph % (Auto) [place] % (Auto) [place] # Baso # Seg Neutrophils % Seg Neuts % (Manual) Lymphocytes % (Manual) Monocytes % (Manual) Seg Neutrophils # Seg Neutrophils # Man Lymphocytes # (Manual) Monocytes # (Manual) Eosinophils # (Manual) Basophils # (Manual) PT INR APTT ABG pH ABG pO2 ABG HCO3 ABG O2 Saturation ABG Base Excess ABG Hemoglobin Oxyhemoglobin Sodium 146 H Potassium 3.5 L D Chloride Carbon Dioxide BUN 24 H Creatinine 0.6 L Glucose 187 H POC Glucose 117 H 220 H Lactic Acid Calcium Ionized Calcium Phosphorus Magnesium Total Bilirubin AST ALT Alkaline Phosphatase Ammonia Total Creatine Kinase CK-MB (CK-2) CK-MB (CK-2) Rel Index Total Protein Albumin Urine WBC (Auto) Vancomycin Trough Salicylates Acetaminophen Plasma/Serum Alcohol Crossmatch 11/27/19 11/28/19 11/28/19 17:28 05:00 05:02 WBC RBC Hgb Hct MCH RDW Plt Count Lymph % (Auto) [place] % (Auto) [place] # Baso # Seg Neutrophils % Seg Neuts % (Manual) Lymphocytes % (Manual) Monocytes % (Manual) Seg Neutrophils # Seg Neutrophils # Man Lymphocytes # (Manual) Monocytes # (Manual) Eosinophils # (Manual) Basophils # (Manual) PT INR APTT ABG pH ABG pO2 72.4 L ABG HCO3 33.6 H ABG O2 Saturation 94.1 L ABG Base Excess 7.3 H ABG Hemoglobin Oxyhemoglobin 91.8 L Sodium 146 H Potassium 3.3 L Chloride Carbon Dioxide BUN 25 H Creatinine 0.6 L Glucose 176 H POC Glucose 198 H Lactic Acid Calcium Ionized Calcium Phosphorus Magnesium Total Bilirubin AST ALT Alkaline Phosphatase Ammonia Total Creatine Kinase CK-MB (CK-2) CK-MB (CK-2) Rel Index Total Protein Albumin Urine WBC (Auto) Vancomycin Trough Salicylates Acetaminophen Plasma/Serum Alcohol Crossmatch 11/28/19 11/28/19 11/29/19 05:02 18:55 10:43 WBC 15.2 H 19.0 H RBC 3.06 L 3.01 L Hgb 8.3 L 8.3 L Hct 27.0 L 26.4 L MCH 27 L RDW 19.0 H 19.7 H Plt Count 479 H 611 H Lymph % (Auto) [place] % (Auto) [place] # Baso # Seg Neutrophils % Seg Neuts % (Manual) 92.0 H Lymphocytes % (Manual) 2.0 L Monocytes % (Manual) Seg Neutrophils # Seg Neutrophils # Man 14.0 H Lymphocytes # (Manual) 0.3 L Monocytes # (Manual) Eosinophils # (Manual) Basophils # (Manual) PT INR APTT ABG pH ABG pO2 ABG HCO3 ABG O2 Saturation ABG Base Excess ABG Hemoglobin Oxyhemoglobin Sodium Potassium Chloride Carbon Dioxide BUN Creatinine Glucose POC Glucose 138 H Lactic Acid Calcium Ionized Calcium Phosphorus Magnesium Total Bilirubin AST ALT Alkaline Phosphatase Ammonia Total Creatine Kinase CK-MB (CK-2) CK-MB (CK-2) Rel Index Total Protein Albumin Urine WBC (Auto) Vancomycin Trough Salicylates Acetaminophen Plasma/Serum Alcohol Crossmatch 11/29/19 11/29/19 11/29/19 10:43 12:27 19:25 WBC RBC Hgb Hct MCH RDW Plt Count Lymph % (Auto) [place] % (Auto) [place] # Baso # Seg Neutrophils % Seg Neuts % (Manual) Lymphocytes % (Manual) Monocytes % (Manual) Seg Neutrophils # Seg Neutrophils # Man Lymphocytes # (Manual) Monocytes # (Manual) Eosinophils # (Manual) Basophils # (Manual) PT INR APTT ABG pH ABG pO2 ABG HCO3 ABG O2 Saturation ABG Base Excess ABG Hemoglobin Oxyhemoglobin Sodium Potassium 2.8 L* Chloride Carbon Dioxide BUN 20 H Creatinine 0.5 L Glucose 121 H POC Glucose 128 H 120 H Lactic Acid Calcium Ionized Calcium Phosphorus Magnesium Total Bilirubin AST ALT Alkaline Phosphatase Ammonia Total Creatine Kinase CK-MB (CK-2) CK-MB (CK-2) Rel Index Total Protein Albumin Urine WBC (Auto) Vancomycin Trough Salicylates Acetaminophen Plasma/Serum Alcohol Crossmatch 11/29/19 11/30/19 11/30/19 23:46 04:10 05:02 WBC RBC Hgb Hct MCH RDW Plt Count Lymph % (Auto) [place] % (Auto) [place] # Baso # Seg Neutrophils % Seg Neuts % (Manual) Lymphocytes % (Manual) Monocytes % (Manual) Seg Neutrophils # Seg Neutrophils # Man Lymphocytes # (Manual) Monocytes # (Manual) Eosinophils # (Manual) Basophils # (Manual) PT INR APTT ABG pH ABG pO2 76.3 L ABG HCO3 32.5 H ABG O2 Saturation ABG Base Excess 6.9 H ABG Hemoglobin 8.0 L Oxyhemoglobin 92.6 L Sodium Potassium Chloride Carbon Dioxide BUN Creatinine Glucose POC Glucose 116 H 128 H Lactic Acid Calcium Ionized Calcium Phosphorus Magnesium Total Bilirubin AST ALT Alkaline Phosphatase Ammonia Total Creatine Kinase CK-MB (CK-2) CK-MB (CK-2) Rel Index Total Protein Albumin Urine WBC (Auto) Vancomycin Trough Salicylates Acetaminophen Plasma/Serum Alcohol Crossmatch 11/30/19 11/30/19 11/30/19 05:25 05:25 12:59 WBC 18.4 H RBC 3.10 L Hgb 8.5 L Hct 27.5 L MCH 27 L RDW 20.9 H Plt Count 691 H Lymph % (Auto) 7.1 L [place] % (Auto) 7.7 H [place] # 1.4 H Baso # Seg Neutrophils % 83.4 H Seg Neuts % (Manual) Lymphocytes % (Manual) Monocytes % (Manual) Seg Neutrophils # 15.4 H Seg Neutrophils # Man Lymphocytes # (Manual) Monocytes # (Manual) Eosinophils # (Manual) Basophils # (Manual) PT INR APTT ABG pH ABG pO2 ABG HCO3 ABG O2 Saturation ABG Base Excess ABG Hemoglobin Oxyhemoglobin Sodium 146 H Potassium Chloride 107.2 H Carbon Dioxide BUN Creatinine 0.5 L Glucose 132 H POC Glucose 124 H Lactic Acid Calcium Ionized Calcium Phosphorus Magnesium Total Bilirubin AST 246 H ALT 274 H Alkaline Phosphatase 203 H Ammonia Total Creatine Kinase CK-MB (CK-2) CK-MB (CK-2) Rel Index Total Protein 5.4 L Albumin 2.9 L Urine WBC (Auto) Vancomycin Trough Salicylates Acetaminophen Plasma/Serum Alcohol Crossmatch 11/30/19 12/01/19 12/01/19 17:53 00:05 05:10 WBC RBC Hgb Hct MCH RDW Plt Count Lymph % (Auto) [place] % (Auto) [place] # Baso # Seg Neutrophils % Seg Neuts % (Manual) Lymphocytes % (Manual) Monocytes % (Manual) Seg Neutrophils # Seg Neutrophils # Man Lymphocytes # (Manual) Monocytes # (Manual) Eosinophils # (Manual) Basophils # (Manual) PT INR APTT ABG pH ABG pO2 ABG HCO3 ABG O2 Saturation ABG Base Excess ABG Hemoglobin Oxyhemoglobin Sodium Potassium Chloride Carbon Dioxide BUN Creatinine Glucose POC Glucose 113 H 143 H 145 H Lactic Acid Calcium Ionized Calcium Phosphorus Magnesium Total Bilirubin AST ALT Alkaline Phosphatase Ammonia Total Creatine Kinase CK-MB (CK-2) CK-MB (CK-2) Rel Index Total Protein Albumin Urine WBC (Auto) Vancomycin Trough Salicylates Acetaminophen Plasma/Serum Alcohol Crossmatch 12/01/19 12/01/19 12/01/19 05:33 08:23 08:23 WBC 22.7 H RBC 2.88 L Hgb 7.9 L Hct 25.2 L MCH 27 L RDW 21.0 H Plt Count 732 H Lymph % (Auto) [place] % (Auto) [place] # Baso # Seg Neutrophils % Seg Neuts % (Manual) 91.0 H Lymphocytes % (Manual) 3.0 L Monocytes % (Manual) Seg Neutrophils # Seg Neutrophils # Man 20.7 H Lymphocytes # (Manual) 0.7 L Monocytes # (Manual) 1.1 H Eosinophils # (Manual) Basophils # (Manual) PT INR APTT ABG pH ABG pO2 68.6 L ABG HCO3 34.1 H ABG O2 Saturation ABG Base Excess 9.0 H ABG Hemoglobin 6.5 L Oxyhemoglobin 94.7 L Sodium Potassium Chloride Carbon Dioxide BUN Creatinine 0.5 L Glucose 125 H POC Glucose Lactic Acid Calcium Ionized Calcium Phosphorus Magnesium Total Bilirubin AST ALT Alkaline Phosphatase Ammonia Total Creatine Kinase CK-MB (CK-2) CK-MB (CK-2) Rel Index Total Protein Albumin Urine WBC (Auto) Vancomycin Trough Salicylates Acetaminophen Plasma/Serum Alcohol Crossmatch 12/01/19 12/01/19 12/01/19 13:21 17:54 20:59 WBC RBC Hgb Hct MCH RDW Plt Count Lymph % (Auto) [place] % (Auto) [place] # Baso # Seg Neutrophils % Seg Neuts % (Manual) Lymphocytes % (Manual) Monocytes % (Manual) Seg Neutrophils # Seg Neutrophils # Man Lymphocytes # (Manual) Monocytes # (Manual) Eosinophils # (Manual) Basophils # (Manual) PT INR APTT ABG pH ABG pO2 78.3 L ABG HCO3 33.8 H ABG O2 Saturation 94.9 L ABG Base Excess 7.9 H ABG Hemoglobin 11.5 L Oxyhemoglobin 92.3 L Sodium Potassium Chloride Carbon Dioxide BUN Creatinine Glucose POC Glucose 111 H 115 H Lactic Acid Calcium Ionized Calcium Phosphorus Magnesium Total Bilirubin AST ALT Alkaline Phosphatase Ammonia Total Creatine Kinase CK-MB (CK-2) CK-MB (CK-2) Rel Index Total Protein Albumin Urine WBC (Auto) Vancomycin Trough Salicylates Acetaminophen Plasma/Serum Alcohol Crossmatch 12/02/19 12/03/19 12/04/19 12:55 20:00 04:26 WBC 15.2 H RBC 2.69 L Hgb 7.4 L Hct 23.6 L MCH 27 L RDW 19.9 H Plt Count 838 H Lymph % (Auto) [place] % (Auto) [place] # Baso # Seg Neutrophils % Seg Neuts % (Manual) Lymphocytes % (Manual) Monocytes % (Manual) Seg Neutrophils # Seg Neutrophils # Man Lymphocytes # (Manual) Monocytes # (Manual) Eosinophils # (Manual) Basophils # (Manual) PT INR APTT ABG pH ABG pO2 68.3 L ABG HCO3 33.5 H ABG O2 Saturation 93.5 L ABG Base Excess 8.4 H ABG Hemoglobin 7.3 L Oxyhemoglobin 90.9 L Sodium Potassium Chloride Carbon Dioxide BUN Creatinine Glucose POC Glucose 107 H Lactic Acid Calcium Ionized Calcium Phosphorus Magnesium Total Bilirubin AST ALT Alkaline Phosphatase Ammonia Total Creatine Kinase CK-MB (CK-2) CK-MB (CK-2) Rel Index Total Protein Albumin Urine WBC (Auto) Vancomycin Trough Salicylates Acetaminophen Plasma/Serum Alcohol Crossmatch 12/04/19 12/04/19 12/04/19 04:26 07:45 12:02 WBC 15.9 H RBC 2.88 L Hgb 7.9 L Hct 25.1 L MCH RDW 20.4 H Plt Count 839 H Lymph % (Auto) 11.3 L [place] % (Auto) 15.2 H [place] # 2.4 H Baso # Seg Neutrophils % 72.4 H Seg Neuts % (Manual) Lymphocytes % (Manual) Monocytes % (Manual) Seg Neutrophils # 11.5 H Seg Neutrophils # Man Lymphocytes # (Manual) Monocytes # (Manual) Eosinophils # (Manual) Basophils # (Manual) PT INR APTT ABG pH ABG pO2 ABG HCO3 ABG O2 Saturation ABG Base Excess ABG Hemoglobin Oxyhemoglobin Sodium Potassium Chloride 96.5 L Carbon Dioxide BUN 21 H Creatinine 0.6 L Glucose 107 H POC Glucose 138 H Lactic Acid Calcium Ionized Calcium Phosphorus Magnesium Total Bilirubin AST ALT Alkaline Phosphatase Ammonia Total Creatine Kinase CK-MB (CK-2) CK-MB (CK-2) Rel Index Total Protein Albumin Urine WBC (Auto) Vancomycin Trough Salicylates Acetaminophen Plasma/Serum Alcohol Crossmatch 12/04/19 12/05/19 12/05/19 18:16 11:55 18:36 WBC RBC Hgb Hct MCH RDW Plt Count Lymph % (Auto) [place] % (Auto) [place] # Baso # Seg Neutrophils % Seg Neuts % (Manual) Lymphocytes % (Manual) Monocytes % (Manual) Seg Neutrophils # Seg Neutrophils # Man Lymphocytes # (Manual) Monocytes # (Manual) Eosinophils # (Manual) Basophils # (Manual) PT INR APTT ABG pH ABG pO2 ABG HCO3 ABG O2 Saturation ABG Base Excess ABG Hemoglobin Oxyhemoglobin Sodium Potassium Chloride Carbon Dioxide BUN Creatinine Glucose POC Glucose 135 H 125 H 135 H Lactic Acid Calcium Ionized Calcium Phosphorus Magnesium Total Bilirubin AST ALT Alkaline Phosphatase Ammonia Total Creatine Kinase CK-MB (CK-2) CK-MB (CK-2) Rel Index Total Protein Albumin Urine WBC (Auto) Vancomycin Trough Salicylates Acetaminophen Plasma/Serum Alcohol Crossmatch 12/05/19 12/06/19 12/06/19 23:30 04:14 05:43 WBC RBC Hgb Hct MCH RDW Plt Count Lymph % (Auto) [place] % (Auto) [place] # Baso # Seg Neutrophils % Seg Neuts % (Manual) Lymphocytes % (Manual) Monocytes % (Manual) Seg Neutrophils # Seg Neutrophils # Man Lymphocytes # (Manual) Monocytes # (Manual) Eosinophils # (Manual) Basophils # (Manual) PT INR APTT ABG pH ABG pO2 ABG HCO3 ABG O2 Saturation ABG Base Excess ABG Hemoglobin Oxyhemoglobin Sodium Potassium 5.6 H Chloride 95.0 L Carbon Dioxide BUN 48 H Creatinine 1.3 H D Glucose POC Glucose 126 H 121 H Lactic Acid Calcium Ionized Calcium Phosphorus Magnesium Total Bilirubin AST 89 H ALT 98 H Alkaline Phosphatase 476 H Ammonia Total Creatine Kinase CK-MB (CK-2) CK-MB (CK-2) Rel Index Total Protein Albumin 2.8 L Urine WBC (Auto) Vancomycin Trough Salicylates Acetaminophen Plasma/Serum Alcohol Crossmatch 12/06/19 12/06/19 12/07/19 10:39 14:34 00:19 WBC 17.3 H RBC 2.60 L Hgb 7.1 L Hct 22.7 L MCH 27 L RDW 20.1 H Plt Count 832 H Lymph % (Auto) [place] % (Auto) [place] # Baso # Seg Neutrophils % Seg Neuts % (Manual) Lymphocytes % (Manual) Monocytes % (Manual) Seg Neutrophils # Seg Neutrophils # Man Lymphocytes # (Manual) Monocytes # (Manual) Eosinophils # (Manual) Basophils # (Manual) PT INR APTT ABG pH ABG pO2 ABG HCO3 ABG O2 Saturation ABG Base Excess ABG Hemoglobin Oxyhemoglobin Sodium Potassium Chloride Carbon Dioxide BUN Creatinine Glucose POC Glucose 128 H 136 H Lactic Acid Calcium Ionized Calcium Phosphorus Magnesium Total Bilirubin AST ALT Alkaline Phosphatase Ammonia Total Creatine Kinase CK-MB (CK-2) CK-MB (CK-2) Rel Index Total Protein Albumin Urine WBC (Auto) Vancomycin Trough Salicylates Acetaminophen Plasma/Serum Alcohol Crossmatch 12/07/19 12/07/19 12/07/19 03:44 03:44 05:53 WBC 16.2 H RBC 2.56 L Hgb 7.1 L Hct 22.3 L MCH RDW 19.4 H Plt Count 782 H Lymph % (Auto) [place] % (Auto) [place] # Baso # Seg Neutrophils % Seg Neuts % (Manual) Lymphocytes % (Manual) Monocytes % (Manual) Seg Neutrophils # Seg Neutrophils # Man Lymphocytes # (Manual) Monocytes # (Manual) Eosinophils # (Manual) Basophils # (Manual) PT INR APTT ABG pH ABG pO2 ABG HCO3 ABG O2 Saturation ABG Base Excess ABG Hemoglobin Oxyhemoglobin Sodium Potassium Chloride 95.6 L Carbon Dioxide BUN 56 H Creatinine 1.4 H Glucose 120 H POC Glucose 128 H Lactic Acid Calcium 10.3 H Ionized Calcium Phosphorus Magnesium Total Bilirubin AST ALT Alkaline Phosphatase Ammonia Total Creatine Kinase CK-MB (CK-2) CK-MB (CK-2) Rel Index Total Protein Albumin Urine WBC (Auto) Vancomycin Trough Salicylates Acetaminophen Plasma/Serum Alcohol Crossmatch 12/07/19 12/07/19 12/08/19 12:54 23:47 00:20 WBC RBC Hgb Hct MCH RDW Plt Count Lymph % (Auto) [place] % (Auto) [place] # Baso # Seg Neutrophils % Seg Neuts % (Manual) Lymphocytes % (Manual) Monocytes % (Manual) Seg Neutrophils # Seg Neutrophils # Man Lymphocytes # (Manual) Monocytes # (Manual) Eosinophils # (Manual) Basophils # (Manual) PT INR APTT ABG pH ABG pO2 ABG HCO3 ABG O2 Saturation ABG Base Excess ABG Hemoglobin Oxyhemoglobin Sodium Potassium Chloride Carbon Dioxide BUN Creatinine Glucose POC Glucose 128 H 130 H 124 H Lactic Acid Calcium Ionized Calcium Phosphorus Magnesium Total Bilirubin AST ALT Alkaline Phosphatase Ammonia Total Creatine Kinase CK-MB (CK-2) CK-MB (CK-2) Rel Index Total Protein Albumin Urine WBC (Auto) Vancomycin Trough Salicylates Acetaminophen Plasma/Serum Alcohol Crossmatch 12/08/19 12/08/19 12/08/19 06:38 12:04 18:26 WBC RBC Hgb Hct MCH RDW Plt Count Lymph % (Auto) [place] % (Auto) [place] # Baso # Seg Neutrophils % Seg Neuts % (Manual) Lymphocytes % (Manual) Monocytes % (Manual) Seg Neutrophils # Seg Neutrophils # Man Lymphocytes # (Manual) Monocytes # (Manual) Eosinophils # (Manual) Basophils # (Manual) PT INR APTT ABG pH ABG pO2 ABG HCO3 ABG O2 Saturation ABG Base Excess ABG Hemoglobin Oxyhemoglobin Sodium Potassium Chloride Carbon Dioxide BUN Creatinine Glucose POC Glucose 137 H 129 H 150 H Lactic Acid Calcium Ionized Calcium Phosphorus Magnesium Total Bilirubin AST ALT Alkaline Phosphatase Ammonia Total Creatine Kinase CK-MB (CK-2) CK-MB (CK-2) Rel Index Total Protein Albumin Urine WBC (Auto) Vancomycin Trough Salicylates Acetaminophen Plasma/Serum Alcohol Crossmatch 12/09/19 12/09/19 12/09/19 00:56 05:34 06:13 WBC RBC Hgb Hct MCH RDW Plt Count Lymph % (Auto) [place] % (Auto) [place] # Baso # Seg Neutrophils % Seg Neuts % (Manual) Lymphocytes % (Manual) Monocytes % (Manual) Seg Neutrophils # Seg Neutrophils # Man Lymphocytes # (Manual) Monocytes # (Manual) Eosinophils # (Manual) Basophils # (Manual) PT INR APTT ABG pH ABG pO2 ABG HCO3 ABG O2 Saturation ABG Base Excess ABG Hemoglobin Oxyhemoglobin Sodium 146 H Potassium Chloride Carbon Dioxide BUN 66 H Creatinine 1.9 H Glucose 116 H POC Glucose 130 H 130 H Lactic Acid Calcium Ionized Calcium Phosphorus Magnesium Total Bilirubin AST ALT Alkaline Phosphatase Ammonia Total Creatine Kinase CK-MB (CK-2) CK-MB (CK-2) Rel Index Total Protein Albumin Urine WBC (Auto) Vancomycin Trough Salicylates Acetaminophen Plasma/Serum Alcohol Crossmatch 12/09/19 12/09/19 12/10/19 11:52 17:50 00:14 WBC RBC Hgb Hct MCH RDW Plt Count Lymph % (Auto) [place] % (Auto) [place] # Baso # Seg Neutrophils % Seg Neuts % (Manual) Lymphocytes % (Manual) Monocytes % (Manual) Seg Neutrophils # Seg Neutrophils # Man Lymphocytes # (Manual) Monocytes # (Manual) Eosinophils # (Manual) Basophils # (Manual) PT INR APTT ABG pH ABG pO2 ABG HCO3 ABG O2 Saturation ABG Base Excess ABG Hemoglobin Oxyhemoglobin Sodium Potassium Chloride Carbon Dioxide BUN Creatinine Glucose POC Glucose 135 H 120 H 116 H Lactic Acid Calcium Ionized Calcium Phosphorus Magnesium Total Bilirubin AST ALT Alkaline Phosphatase Ammonia Total Creatine Kinase CK-MB (CK-2) CK-MB (CK-2) Rel Index Total Protein Albumin Urine WBC (Auto) Vancomycin Trough Salicylates Acetaminophen Plasma/Serum Alcohol Crossmatch 12/10/19 12/10/19 12/10/19 05:38 11:38 17:34 WBC RBC Hgb Hct MCH RDW Plt Count Lymph % (Auto) [place] % (Auto) [place] # Baso # Seg Neutrophils % Seg Neuts % (Manual) Lymphocytes % (Manual) Monocytes % (Manual) Seg Neutrophils # Seg Neutrophils # Man Lymphocytes # (Manual) Monocytes # (Manual) Eosinophils # (Manual) Basophils # (Manual) PT INR APTT ABG pH ABG pO2 ABG HCO3 ABG O2 Saturation ABG Base Excess ABG Hemoglobin Oxyhemoglobin Sodium Potassium Chloride Carbon Dioxide BUN Creatinine Glucose POC Glucose 115 H 112 H 130 H Lactic Acid Calcium Ionized Calcium Phosphorus Magnesium Total Bilirubin AST ALT Alkaline Phosphatase Ammonia Total Creatine Kinase CK-MB (CK-2) CK-MB (CK-2) Rel Index Total Protein Albumin Urine WBC (Auto) Vancomycin Trough Salicylates Acetaminophen Plasma/Serum Alcohol Crossmatch 12/11/19 12/11/19 12/11/19 00:20 05:31 12:22 WBC RBC Hgb Hct MCH RDW Plt Count Lymph % (Auto) [place] % (Auto) [place] # Baso # Seg Neutrophils % Seg Neuts % (Manual) Lymphocytes % (Manual) Monocytes % (Manual) Seg Neutrophils # Seg Neutrophils # Man Lymphocytes # (Manual) Monocytes # (Manual) Eosinophils # (Manual) Basophils # (Manual) PT INR APTT ABG pH ABG pO2 ABG HCO3 ABG O2 Saturation ABG Base Excess ABG Hemoglobin Oxyhemoglobin Sodium Potassium Chloride Carbon Dioxide BUN Creatinine Glucose POC Glucose 124 H 132 H 128 H Lactic Acid Calcium Ionized Calcium Phosphorus Magnesium Total Bilirubin AST ALT Alkaline Phosphatase Ammonia Total Creatine Kinase CK-MB (CK-2) CK-MB (CK-2) Rel Index Total Protein Albumin Urine WBC (Auto) Vancomycin Trough Salicylates Acetaminophen Plasma/Serum Alcohol Crossmatch 12/11/19 12/11/19 12/12/19 18:04 23:42 03:51 WBC RBC Hgb Hct MCH RDW Plt Count Lymph % (Auto) [place] % (Auto) [place] # Baso # Seg Neutrophils % Seg Neuts % (Manual) Lymphocytes % (Manual) Monocytes % (Manual) Seg Neutrophils # Seg Neutrophils # Man Lymphocytes # (Manual) Monocytes # (Manual) Eosinophils # (Manual) Basophils # (Manual) PT INR APTT ABG pH ABG pO2 ABG HCO3 ABG O2 Saturation ABG Base Excess ABG Hemoglobin Oxyhemoglobin Sodium 149 H Potassium Chloride Carbon Dioxide 20 L D BUN 77 H Creatinine 2.8 H Glucose POC Glucose 133 H 154 H Lactic Acid Calcium Ionized Calcium Phosphorus Magnesium Total Bilirubin AST ALT Alkaline Phosphatase Ammonia Total Creatine Kinase CK-MB (CK-2) CK-MB (CK-2) Rel Index Total Protein Albumin Urine WBC (Auto) Vancomycin Trough Salicylates Acetaminophen Plasma/Serum Alcohol Crossmatch 12/12/19 12/12/19 12/12/19 05:18 05:26 10:30 WBC 18.0 H RBC 2.51 L Hgb 6.8 L Hct 22.0 L MCH 27 L RDW 19.9 H Plt Count 582 H Lymph % (Auto) [place] % (Auto) [place] # Baso # Seg Neutrophils % Seg Neuts % (Manual) Lymphocytes % (Manual) Monocytes % (Manual) Seg Neutrophils # Seg Neutrophils # Man Lymphocytes # (Manual) Monocytes # (Manual) Eosinophils # (Manual) Basophils # (Manual) PT INR APTT ABG pH ABG pO2 ABG HCO3 ABG O2 Saturation ABG Base Excess ABG Hemoglobin Oxyhemoglobin Sodium Potassium Chloride Carbon Dioxide BUN Creatinine Glucose POC Glucose 135 H Lactic Acid Calcium Ionized Calcium Phosphorus Magnesium Total Bilirubin AST ALT Alkaline Phosphatase Ammonia Total Creatine Kinase CK-MB (CK-2) CK-MB (CK-2) Rel Index Total Protein Albumin Urine WBC (Auto) Vancomycin Trough Salicylates Acetaminophen Plasma/Serum Alcohol Crossmatch See Detail 12/12/19 12/12/19 12/12/19 11:44 18:10 23:21 WBC RBC Hgb Hct MCH RDW Plt Count Lymph % (Auto) [place] % (Auto) [place] # Baso # Seg Neutrophils % Seg Neuts % (Manual) Lymphocytes % (Manual) Monocytes % (Manual) Seg Neutrophils # Seg Neutrophils # Man Lymphocytes # (Manual) Monocytes # (Manual) Eosinophils # (Manual) Basophils # (Manual) PT INR APTT ABG pH ABG pO2 ABG HCO3 ABG O2 Saturation ABG Base Excess ABG Hemoglobin Oxyhemoglobin Sodium Potassium Chloride Carbon Dioxide BUN Creatinine Glucose POC Glucose 108 H 107 H 126 H Lactic Acid Calcium Ionized Calcium Phosphorus Magnesium Total Bilirubin AST ALT Alkaline Phosphatase Ammonia Total Creatine Kinase CK-MB (CK-2) CK-MB (CK-2) Rel Index Total Protein Albumin Urine WBC (Auto) Vancomycin Trough Salicylates Acetaminophen Plasma/Serum Alcohol Crossmatch 12/13/19 12/13/19 12/13/19 05:41 07:48 07:48 WBC 38.3 H RBC 2.37 L Hgb 6.3 L Hct 20.9 L MCH 27 L RDW 20.2 H Plt Count 546 H Lymph % (Auto) [place] % (Auto) [place] # Baso # Seg Neutrophils % Seg Neuts % (Manual) 93.0 H Lymphocytes % (Manual) 1.0 L Monocytes % (Manual) Seg Neutrophils # Seg Neutrophils # Man 35.6 H Lymphocytes # (Manual) 0.4 L Monocytes # (Manual) Eosinophils # (Manual) Basophils # (Manual) 0.4 H PT INR APTT ABG pH ABG pO2 ABG HCO3 ABG O2 Saturation ABG Base Excess ABG Hemoglobin Oxyhemoglobin Sodium 152 H Potassium 3.1 L D Chloride 111.9 H Carbon Dioxide 21 L BUN 53 H Creatinine 1.9 H Glucose 141 H POC Glucose 128 H Lactic Acid Calcium Ionized Calcium Phosphorus Magnesium Total Bilirubin AST ALT Alkaline Phosphatase 316 H Ammonia Total Creatine Kinase CK-MB (CK-2) CK-MB (CK-2) Rel Index Total Protein Albumin 2.4 L Urine WBC (Auto) Vancomycin Trough Salicylates Acetaminophen Plasma/Serum Alcohol Crossmatch 12/13/19 12/13/19 12/14/19 18:17 23:19 05:36 WBC RBC Hgb Hct MCH RDW Plt Count Lymph % (Auto) [place] % (Auto) [place] # Baso # Seg Neutrophils % Seg Neuts % (Manual) Lymphocytes % (Manual) Monocytes % (Manual) Seg Neutrophils # Seg Neutrophils # Man Lymphocytes # (Manual) Monocytes # (Manual) Eosinophils # (Manual) Basophils # (Manual) PT INR APTT ABG pH ABG pO2 ABG HCO3 ABG O2 Saturation ABG Base Excess ABG Hemoglobin Oxyhemoglobin Sodium Potassium Chloride Carbon Dioxide BUN Creatinine Glucose POC Glucose 141 H 158 H 182 H Lactic Acid Calcium Ionized Calcium Phosphorus Magnesium Total Bilirubin AST ALT Alkaline Phosphatase Ammonia Total Creatine Kinase CK-MB (CK-2) CK-MB (CK-2) Rel Index Total Protein Albumin Urine WBC (Auto) Vancomycin Trough Salicylates Acetaminophen Plasma/Serum Alcohol Crossmatch 12/14/19 12/14/19 12/14/19 08:48 08:48 10:31 WBC 33.3 H RBC 2.70 L Hgb 7.9 L 8.0 L Hct 25.3 L 24.0 L MCH RDW 19.2 H Plt Count 476 H Lymph % (Auto) [place] % (Auto) [place] # Baso # Seg Neutrophils % Seg Neuts % (Manual) Lymphocytes % (Manual) Monocytes % (Manual) Seg Neutrophils # Seg Neutrophils # Man Lymphocytes # (Manual) Monocytes # (Manual) Eosinophils # (Manual) Basophils # (Manual) PT INR APTT ABG pH ABG pO2 ABG HCO3 ABG O2 Saturation ABG Base Excess ABG Hemoglobin Oxyhemoglobin Sodium 153 H Potassium 2.5 L* Chloride 114.9 H Carbon Dioxide 20 L BUN 38 H Creatinine 1.4 H Glucose 177 H POC Glucose Lactic Acid Calcium Ionized Calcium Phosphorus Magnesium Total Bilirubin AST ALT Alkaline Phosphatase Ammonia Total Creatine Kinase CK-MB (CK-2) CK-MB (CK-2) Rel Index Total Protein Albumin Urine WBC (Auto) Vancomycin Trough Salicylates Acetaminophen Plasma/Serum Alcohol Crossmatch 12/14/19 12/14/19 12/14/19 12:57 16:15 17:50 WBC RBC Hgb Hct MCH RDW Plt Count Lymph % (Auto) [place] % (Auto) [place] # Baso # Seg Neutrophils % Seg Neuts % (Manual) Lymphocytes % (Manual) Monocytes % (Manual) Seg Neutrophils # Seg Neutrophils # Man Lymphocytes # (Manual) Monocytes # (Manual) Eosinophils # (Manual) Basophils # (Manual) PT INR APTT ABG pH ABG pO2 73.6 L ABG HCO3 ABG O2 Saturation ABG Base Excess ABG Hemoglobin 7.6 L Oxyhemoglobin 94.0 L Sodium Potassium Chloride Carbon Dioxide BUN Creatinine Glucose POC Glucose 174 H 150 H Lactic Acid Calcium Ionized Calcium Phosphorus Magnesium Total Bilirubin AST ALT Alkaline Phosphatase Ammonia Total Creatine Kinase CK-MB (CK-2) CK-MB (CK-2) Rel Index Total Protein Albumin Urine WBC (Auto) Vancomycin Trough Salicylates Acetaminophen Plasma/Serum Alcohol Crossmatch 12/15/19 12/15/19 12/15/19 00:28 05:27 07:23 WBC 30.0 H RBC 3.11 L Hgb 8.6 L Hct 27.7 L MCH RDW 20.0 H Plt Count 473 H Lymph % (Auto) [place] % (Auto) [place] # Baso # Seg Neutrophils % Seg Neuts % (Manual) Lymphocytes % (Manual) Monocytes % (Manual) Seg Neutrophils # Seg Neutrophils # Man Lymphocytes # (Manual) Monocytes # (Manual) Eosinophils # (Manual) Basophils # (Manual) PT INR APTT ABG pH ABG pO2 ABG HCO3 ABG O2 Saturation ABG Base Excess ABG Hemoglobin Oxyhemoglobin Sodium Potassium Chloride Carbon Dioxide BUN Creatinine Glucose POC Glucose 167 H 148 H Lactic Acid Calcium Ionized Calcium Phosphorus Magnesium Total Bilirubin AST ALT Alkaline Phosphatase Ammonia Total Creatine Kinase CK-MB (CK-2) CK-MB (CK-2) Rel Index Total Protein Albumin Urine WBC (Auto) Vancomycin Trough Salicylates Acetaminophen Plasma/Serum Alcohol Crossmatch 12/15/19 12/15/19 12/15/19 07:23 12:21 17:41 WBC RBC Hgb Hct MCH RDW Plt Count Lymph % (Auto) [place] % (Auto) [place] # Baso # Seg Neutrophils % Seg Neuts % (Manual) Lymphocytes % (Manual) Monocytes % (Manual) Seg Neutrophils # Seg Neutrophils # Man Lymphocytes # (Manual) Monocytes # (Manual) Eosinophils # (Manual) Basophils # (Manual) PT INR APTT ABG pH ABG pO2 ABG HCO3 ABG O2 Saturation ABG Base Excess ABG Hemoglobin Oxyhemoglobin Sodium 147 H Potassium 3.5 L D Chloride 111.2 H Carbon Dioxide 19 L BUN 29 H Creatinine Glucose 126 H POC Glucose 154 H 144 H Lactic Acid Calcium Ionized Calcium Phosphorus Magnesium Total Bilirubin AST ALT Alkaline Phosphatase Ammonia Total Creatine Kinase CK-MB (CK-2) CK-MB (CK-2) Rel Index Total Protein Albumin Urine WBC (Auto) Vancomycin Trough Salicylates Acetaminophen Plasma/Serum Alcohol Crossmatch 12/16/19 12/16/19 12/16/19 00:22 05:30 05:44 WBC 30.8 H RBC 2.58 L Hgb 7.1 L Hct 22.7 L MCH RDW 19.6 H Plt Count 451 H Lymph % (Auto) [place] % (Auto) [place] # Baso # Seg Neutrophils % Seg Neuts % (Manual) Lymphocytes % (Manual) Monocytes % (Manual) Seg Neutrophils # Seg Neutrophils # Man Lymphocytes # (Manual) Monocytes # (Manual) Eosinophils # (Manual) Basophils # (Manual) PT INR APTT ABG pH ABG pO2 ABG HCO3 ABG O2 Saturation ABG Base Excess ABG Hemoglobin Oxyhemoglobin Sodium Potassium Chloride Carbon Dioxide BUN Creatinine Glucose POC Glucose 139 H 126 H Lactic Acid Calcium Ionized Calcium Phosphorus Magnesium Total Bilirubin AST ALT Alkaline Phosphatase Ammonia Total Creatine Kinase CK-MB (CK-2) CK-MB (CK-2) Rel Index Total Protein Albumin Urine WBC (Auto) Vancomycin Trough Salicylates Acetaminophen Plasma/Serum Alcohol Crossmatch 12/16/19 12/16/19 12/16/19 05:44 11:48 17:37 WBC RBC Hgb Hct MCH RDW Plt Count Lymph % (Auto) [place] % (Auto) [place] # Baso # Seg Neutrophils % Seg Neuts % (Manual) Lymphocytes % (Manual) Monocytes % (Manual) Seg Neutrophils # Seg Neutrophils # Man Lymphocytes # (Manual) Monocytes # (Manual) Eosinophils # (Manual) Basophils # (Manual) PT INR APTT ABG pH ABG pO2 ABG HCO3 ABG O2 Saturation ABG Base Excess ABG Hemoglobin Oxyhemoglobin Sodium Potassium 3.4 L Chloride 109.2 H Carbon Dioxide 19 L BUN 27 H Creatinine Glucose 124 H POC Glucose 125 H 148 H Lactic Acid Calcium Ionized Calcium Phosphorus Magnesium Total Bilirubin AST ALT Alkaline Phosphatase Ammonia Total Creatine Kinase CK-MB (CK-2) CK-MB (CK-2) Rel Index Total Protein Albumin Urine WBC (Auto) Vancomycin Trough Salicylates Acetaminophen Plasma/Serum Alcohol Crossmatch 12/16/19 12/17/19 12/17/19 23:43 05:28 12:47 WBC RBC Hgb Hct MCH RDW Plt Count Lymph % (Auto) [place] % (Auto) [place] # Baso # Seg Neutrophils % Seg Neuts % (Manual) Lymphocytes % (Manual) Monocytes % (Manual) Seg Neutrophils # Seg Neutrophils # Man Lymphocytes # (Manual) Monocytes # (Manual) Eosinophils # (Manual) Basophils # (Manual) PT INR APTT ABG pH ABG pO2 ABG HCO3 ABG O2 Saturation ABG Base Excess ABG Hemoglobin Oxyhemoglobin Sodium Potassium Chloride Carbon Dioxide BUN Creatinine Glucose POC Glucose 142 H 140 H 125 H Lactic Acid Calcium Ionized Calcium Phosphorus Magnesium Total Bilirubin AST ALT Alkaline Phosphatase Ammonia Total Creatine Kinase CK-MB (CK-2) CK-MB (CK-2) Rel Index Total Protein Albumin Urine WBC (Auto) Vancomycin Trough Salicylates Acetaminophen Plasma/Serum Alcohol Crossmatch 12/17/19 12/17/19 12/17/19 17:05 18:00 Unknown WBC RBC Hgb Hct MCH RDW Plt Count Lymph % (Auto) [place] % (Auto) [place] # Baso # Seg Neutrophils % Seg Neuts % (Manual) Lymphocytes % (Manual) Monocytes % (Manual) Seg Neutrophils # Seg Neutrophils # Man Lymphocytes # (Manual) Monocytes # (Manual) Eosinophils # (Manual) Basophils # (Manual) PT INR APTT ABG pH ABG pO2 68.1 L ABG HCO3 ABG O2 Saturation 93.7 L ABG Base Excess ABG Hemoglobin 5.0 L Oxyhemoglobin 91.7 L Sodium Potassium Chloride Carbon Dioxide BUN Creatinine Glucose POC Glucose 140 H Lactic Acid Calcium Ionized Calcium Phosphorus Magnesium Total Bilirubin AST ALT Alkaline Phosphatase Ammonia Total Creatine Kinase CK-MB (CK-2) CK-MB (CK-2) Rel Index Total Protein Albumin Urine WBC (Auto) Vancomycin Trough Salicylates Acetaminophen Plasma/Serum Alcohol Crossmatch 12/18/19 12/18/19 12/18/19 00:16 04:53 04:53 WBC 28.6 H RBC 2.27 L Hgb 6.3 L Hct 19.5 L* MCH RDW 20.0 H Plt Count 497 H Lymph % (Auto) [place] % (Auto) [place] # Baso # Seg Neutrophils % Seg Neuts % (Manual) Lymphocytes % (Manual) Monocytes % (Manual) Seg Neutrophils # Seg Neutrophils # Man Lymphocytes # (Manual) Monocytes # (Manual) Eosinophils # (Manual) Basophils # (Manual) PT INR APTT ABG pH ABG pO2 ABG HCO3 ABG O2 Saturation ABG Base Excess ABG Hemoglobin Oxyhemoglobin Sodium Potassium Chloride 107.9 H Carbon Dioxide 20 L BUN 27 H Creatinine 0.6 L Glucose 116 H POC Glucose 123 H Lactic Acid Calcium Ionized Calcium Phosphorus Magnesium Total Bilirubin AST ALT Alkaline Phosphatase Ammonia Total Creatine Kinase CK-MB (CK-2) CK-MB (CK-2) Rel Index Total Protein Albumin Urine WBC (Auto) Vancomycin Trough Salicylates Acetaminophen Plasma/Serum Alcohol Crossmatch 12/18/19 12/18/19 12/18/19 06:38 11:22 12:08 WBC RBC Hgb Hct MCH RDW Plt Count Lymph % (Auto) [place] % (Auto) [place] # Baso # Seg Neutrophils % Seg Neuts % (Manual) Lymphocytes % (Manual) Monocytes % (Manual) Seg Neutrophils # Seg Neutrophils # Man Lymphocytes # (Manual) Monocytes # (Manual) Eosinophils # (Manual) Basophils # (Manual) PT INR APTT ABG pH ABG pO2 ABG HCO3 ABG O2 Saturation ABG Base Excess ABG Hemoglobin Oxyhemoglobin Sodium Potassium Chloride Carbon Dioxide BUN Creatinine Glucose POC Glucose 120 H 127 H Lactic Acid Calcium Ionized Calcium Phosphorus Magnesium Total Bilirubin AST ALT Alkaline Phosphatase Ammonia Total Creatine Kinase CK-MB (CK-2) CK-MB (CK-2) Rel Index Total Protein Albumin Urine WBC (Auto) Vancomycin Trough Salicylates Acetaminophen Plasma/Serum Alcohol Crossmatch See Detail 12/18/19 12/18/19 12/18/19 14:05 17:49 23:53 WBC RBC Hgb Hct MCH RDW Plt Count Lymph % (Auto) [place] % (Auto) [place] # Baso # Seg Neutrophils % Seg Neuts % (Manual) Lymphocytes % (Manual) Monocytes % (Manual) Seg Neutrophils # Seg Neutrophils # Man Lymphocytes # (Manual) Monocytes # (Manual) Eosinophils # (Manual) Basophils # (Manual) PT INR APTT ABG pH 7.267 L ABG pO2 69.8 L ABG HCO3 ABG O2 Saturation 88.4 L ABG Base Excess ABG Hemoglobin 7.1 L Oxyhemoglobin 86.4 L Sodium Potassium Chloride Carbon Dioxide BUN Creatinine Glucose POC Glucose 157 H 128 H Lactic Acid Calcium Ionized Calcium Phosphorus Magnesium Total Bilirubin AST ALT Alkaline Phosphatase Ammonia Total Creatine Kinase CK-MB (CK-2) CK-MB (CK-2) Rel Index Total Protein Albumin Urine WBC (Auto) Vancomycin Trough Salicylates Acetaminophen Plasma/Serum Alcohol Crossmatch 12/19/19 12/19/19 12/19/19 03:37 03:37 05:25 WBC 31.3 H RBC 2.60 L Hgb 7.6 L Hct 23.0 L MCH RDW 19.4 H Plt Count 530 H Lymph % (Auto) [place] % (Auto) [place] # Baso # Seg Neutrophils % Seg Neuts % (Manual) Lymphocytes % (Manual) Monocytes % (Manual) Seg Neutrophils # Seg Neutrophils # Man Lymphocytes # (Manual) Monocytes # (Manual) Eosinophils # (Manual) Basophils # (Manual) PT INR APTT ABG pH ABG pO2 ABG HCO3 ABG O2 Saturation ABG Base Excess ABG Hemoglobin Oxyhemoglobin Sodium Potassium Chloride Carbon Dioxide 18 L BUN 36 H Creatinine Glucose 111 H POC Glucose 123 H Lactic Acid Calcium Ionized Calcium Phosphorus Magnesium Total Bilirubin AST ALT Alkaline Phosphatase Ammonia Total Creatine Kinase CK-MB (CK-2) CK-MB (CK-2) Rel Index Total Protein Albumin Urine WBC (Auto) Vancomycin Trough Salicylates Acetaminophen Plasma/Serum Alcohol Crossmatch 12/19/19 12/19/19 12/20/19 12:59 18:33 00:00 WBC RBC Hgb Hct MCH RDW Plt Count Lymph % (Auto) [place] % (Auto) [place] # Baso # Seg Neutrophils % Seg Neuts % (Manual) Lymphocytes % (Manual) Monocytes % (Manual) Seg Neutrophils # Seg Neutrophils # Man Lymphocytes # (Manual) Monocytes # (Manual) Eosinophils # (Manual) Basophils # (Manual) PT INR APTT ABG pH ABG pO2 ABG HCO3 ABG O2 Saturation ABG Base Excess ABG Hemoglobin Oxyhemoglobin Sodium Potassium Chloride Carbon Dioxide BUN Creatinine Glucose POC Glucose 130 H 118 H 135 H Lactic Acid Calcium Ionized Calcium Phosphorus Magnesium Total Bilirubin AST ALT Alkaline Phosphatase Ammonia Total Creatine Kinase CK-MB (CK-2) CK-MB (CK-2) Rel Index Total Protein Albumin Urine WBC (Auto) Vancomycin Trough Salicylates Acetaminophen Plasma/Serum Alcohol Crossmatch 12/20/19 12/20/19 12/20/19 05:46 12:31 18:07 WBC RBC Hgb Hct MCH RDW Plt Count Lymph % (Auto) [place] % (Auto) [place] # Baso # Seg Neutrophils % Seg Neuts % (Manual) Lymphocytes % (Manual) Monocytes % (Manual) Seg Neutrophils # Seg Neutrophils # Man Lymphocytes # (Manual) Monocytes # (Manual) Eosinophils # (Manual) Basophils # (Manual) PT INR APTT ABG pH ABG pO2 ABG HCO3 ABG O2 Saturation ABG Base Excess ABG Hemoglobin Oxyhemoglobin Sodium Potassium Chloride Carbon Dioxide BUN Creatinine Glucose POC Glucose 131 H 128 H 134 H Lactic Acid Calcium Ionized Calcium Phosphorus Magnesium Total Bilirubin AST ALT Alkaline Phosphatase Ammonia Total Creatine Kinase CK-MB (CK-2) CK-MB (CK-2) Rel Index Total Protein Albumin Urine WBC (Auto) Vancomycin Trough Salicylates Acetaminophen Plasma/Serum Alcohol Crossmatch 12/21/19 12/21/19 12/21/19 03:28 03:28 07:21 WBC 29.4 H RBC 2.30 L Hgb 6.8 L Hct 20.2 L MCH RDW 20.2 H Plt Count 746 H Lymph % (Auto) [place] % (Auto) [place] # Baso # Seg Neutrophils % Seg Neuts % (Manual) 85.0 H Lymphocytes % (Manual) 8.0 L Monocytes % (Manual) Seg Neutrophils # Seg Neutrophils # Man 25.0 H Lymphocytes # (Manual) Monocytes # (Manual) 1.5 H Eosinophils # (Manual) 0.6 H Basophils # (Manual) PT INR APTT ABG pH ABG pO2 ABG HCO3 ABG O2 Saturation ABG Base Excess ABG Hemoglobin Oxyhemoglobin Sodium Potassium Chloride Carbon Dioxide 17 L BUN 57 H Creatinine 1.4 H D Glucose POC Glucose 124 H Lactic Acid Calcium Ionized Calcium Phosphorus Magnesium Total Bilirubin AST ALT Alkaline Phosphatase Ammonia Total Creatine Kinase CK-MB (CK-2) CK-MB (CK-2) Rel Index Total Protein Albumin Urine WBC (Auto) Vancomycin Trough Salicylates Acetaminophen Plasma/Serum Alcohol Crossmatch 12/21/19 12/21/19 12/21/19 08:56 12:06 14:53 WBC RBC Hgb 7.2 L Hct 22.9 L MCH RDW Plt Count Lymph % (Auto) [place] % (Auto) [place] # Baso # Seg Neutrophils % Seg Neuts % (Manual) Lymphocytes % (Manual) Monocytes % (Manual) Seg Neutrophils # Seg Neutrophils # Man Lymphocytes # (Manual) Monocytes # (Manual) Eosinophils # (Manual) Basophils # (Manual) PT INR APTT ABG pH ABG pO2 ABG HCO3 ABG O2 Saturation ABG Base Excess ABG Hemoglobin Oxyhemoglobin Sodium Potassium Chloride Carbon Dioxide BUN Creatinine Glucose POC Glucose 116 H Lactic Acid Calcium Ionized Calcium Phosphorus Magnesium Total Bilirubin AST ALT Alkaline Phosphatase Ammonia Total Creatine Kinase CK-MB (CK-2) CK-MB (CK-2) Rel Index Total Protein Albumin Urine WBC (Auto) Vancomycin Trough 33.8 H Salicylates Acetaminophen Plasma/Serum Alcohol Crossmatch 12/21/19 12/21/19 12/21/19 14:54 17:27 23:49 WBC RBC Hgb Hct MCH RDW Plt Count Lymph % (Auto) [place] % (Auto) [place] # Baso # Seg Neutrophils % Seg Neuts % (Manual) Lymphocytes % (Manual) Monocytes % (Manual) Seg Neutrophils # Seg Neutrophils # Man Lymphocytes # (Manual) Monocytes # (Manual) Eosinophils # (Manual) Basophils # (Manual) PT INR APTT ABG pH ABG pO2 ABG HCO3 ABG O2 Saturation ABG Base Excess ABG Hemoglobin Oxyhemoglobin Sodium Potassium Chloride Carbon Dioxide BUN Creatinine Glucose POC Glucose 145 H 127 H Lactic Acid Calcium Ionized Calcium Phosphorus Magnesium Total Bilirubin AST ALT Alkaline Phosphatase Ammonia Total Creatine Kinase CK-MB (CK-2) CK-MB (CK-2) Rel Index Total Protein Albumin Urine WBC (Auto) Vancomycin Trough Salicylates Acetaminophen Plasma/Serum Alcohol Crossmatch See Detail 04/04/20 04/04/20 04/04/20 04:43 05:56 08:40 WBC RBC Hgb Hct MCH RDW Plt Count Lymph % (Auto) [place] % (Auto) [place] # Baso # Seg Neutrophils % Seg Neuts % (Manual) Lymphocytes % (Manual) Monocytes % (Manual) Seg Neutrophils # Seg Neutrophils # Man Lymphocytes # (Manual) Monocytes # (Manual) Eosinophils # (Manual) Basophils # (Manual) PT INR APTT ABG pH ABG pO2 75.6 L ABG HCO3 ABG O2 Saturation ABG Base Excess -2.6 L ABG Hemoglobin 6.8 L Oxyhemoglobin 94.6 L Sodium Potassium Chloride Carbon Dioxide 17 L BUN 60 H Creatinine 1.4 H Glucose 126 H POC Glucose 153 H Lactic Acid Calcium Ionized Calcium Phosphorus Magnesium Total Bilirubin AST ALT Alkaline Phosphatase Ammonia Total Creatine Kinase CK-MB (CK-2) CK-MB (CK-2) Rel Index Total Protein Albumin Urine WBC (Auto) Vancomycin Trough Salicylates Acetaminophen Plasma/Serum Alcohol Crossmatch 12/22/19 12/22/19 12/23/19 12:07 17:49 04:30 WBC 22.4 H RBC 2.68 L Hgb 7.6 L Hct 22.9 L MCH RDW 19.9 H Plt Count 998 H Lymph % (Auto) [place] % (Auto) [place] # Baso # Seg Neutrophils % Seg Neuts % (Manual) 88.0 H Lymphocytes % (Manual) 2.0 L Monocytes % (Manual) 9.0 H Seg Neutrophils # Seg Neutrophils # Man 19.7 H Lymphocytes # (Manual) 0.4 L Monocytes # (Manual) 2.0 H Eosinophils # (Manual) Basophils # (Manual) PT INR APTT ABG pH ABG pO2 ABG HCO3 ABG O2 Saturation ABG Base Excess ABG Hemoglobin Oxyhemoglobin Sodium Potassium Chloride Carbon Dioxide BUN Creatinine Glucose POC Glucose 140 H 116 H Lactic Acid Calcium Ionized Calcium Phosphorus Magnesium Total Bilirubin AST ALT Alkaline Phosphatase Ammonia Total Creatine Kinase CK-MB (CK-2) CK-MB (CK-2) Rel Index Total Protein Albumin Urine WBC (Auto) Vancomycin Trough Salicylates Acetaminophen Plasma/Serum Alcohol Crossmatch 12/23/19 12/23/19 12/23/19 04:30 12:00 18:06 WBC RBC Hgb Hct MCH RDW Plt Count Lymph % (Auto) [place] % (Auto) [place] # Baso # Seg Neutrophils % Seg Neuts % (Manual) Lymphocytes % (Manual) Monocytes % (Manual) Seg Neutrophils # Seg Neutrophils # Man Lymphocytes # (Manual) Monocytes # (Manual) Eosinophils # (Manual) Basophils # (Manual) PT INR APTT ABG pH ABG pO2 ABG HCO3 ABG O2 Saturation ABG Base Excess ABG Hemoglobin Oxyhemoglobin Sodium Potassium 5.2 H Chloride Carbon Dioxide 21 L BUN 69 H Creatinine 1.5 H Glucose 117 H POC Glucose 128 H 138 H Lactic Acid Calcium Ionized Calcium Phosphorus Magnesium Total Bilirubin AST ALT Alkaline Phosphatase Ammonia Total Creatine Kinase CK-MB (CK-2) CK-MB (CK-2) Rel Index Total Protein Albumin Urine WBC (Auto) Vancomycin Trough Salicylates Acetaminophen Plasma/Serum Alcohol Crossmatch 12/23/19 12/24/19 12/24/19 23:46 04:31 05:08 WBC RBC Hgb Hct MCH RDW Plt Count Lymph % (Auto) [place] % (Auto) [place] # Baso # Seg Neutrophils % Seg Neuts % (Manual) Lymphocytes % (Manual) Monocytes % (Manual) Seg Neutrophils # Seg Neutrophils # Man Lymphocytes # (Manual) Monocytes # (Manual) Eosinophils # (Manual) Basophils # (Manual) PT INR APTT ABG pH ABG pO2 ABG HCO3 ABG O2 Saturation ABG Base Excess ABG Hemoglobin Oxyhemoglobin Sodium Potassium 5.3 H Chloride 107.6 H Carbon Dioxide 20 L BUN 72 H Creatinine 1.6 H Glucose 120 H POC Glucose 120 H 140 H Lactic Acid Calcium Ionized Calcium Phosphorus Magnesium Total Bilirubin AST ALT Alkaline Phosphatase Ammonia Total Creatine Kinase CK-MB (CK-2) CK-MB (CK-2) Rel Index Total Protein Albumin Urine WBC (Auto) Vancomycin Trough Salicylates Acetaminophen Plasma/Serum Alcohol Crossmatch 12/24/19 12/24/19 12/25/19 11:58 17:49 03:47 WBC 36.2 H RBC 2.92 L Hgb 8.4 L Hct 26.1 L MCH RDW 20.2 H Plt Count 942 H Lymph % (Auto) [place] % (Auto) [place] # Baso # Seg Neutrophils % Seg Neuts % (Manual) 97.5 H Lymphocytes % (Manual) 1.0 L Monocytes % (Manual) Seg Neutrophils # Seg Neutrophils # Man 35.3 H Lymphocytes # (Manual) 0.4 L Monocytes # (Manual) Eosinophils # (Manual) Basophils # (Manual) PT INR APTT ABG pH ABG pO2 ABG HCO3 ABG O2 Saturation ABG Base Excess ABG Hemoglobin Oxyhemoglobin Sodium Potassium Chloride Carbon Dioxide BUN Creatinine Glucose POC Glucose 146 H 131 H Lactic Acid Calcium Ionized Calcium Phosphorus Magnesium Total Bilirubin AST ALT Alkaline Phosphatase Ammonia Total Creatine Kinase CK-MB (CK-2) CK-MB (CK-2) Rel Index Total Protein Albumin Urine WBC (Auto) Vancomycin Trough Salicylates Acetaminophen Plasma/Serum Alcohol Crossmatch 12/25/19 12/25/19 12/25/19 03:47 05:30 12:23 WBC RBC Hgb Hct MCH RDW Plt Count Lymph % (Auto) [place] % (Auto) [place] # Baso # Seg Neutrophils % Seg Neuts % (Manual) Lymphocytes % (Manual) Monocytes % (Manual) Seg Neutrophils # Seg Neutrophils # Man Lymphocytes # (Manual) Monocytes # (Manual) Eosinophils # (Manual) Basophils # (Manual) PT INR APTT ABG pH ABG pO2 ABG HCO3 ABG O2 Saturation ABG Base Excess ABG Hemoglobin Oxyhemoglobin Sodium Potassium Chloride Carbon Dioxide 15 L BUN 70 H Creatinine 1.7 H Glucose 153 H POC Glucose 169 H 135 H Lactic Acid Calcium Ionized Calcium Phosphorus Magnesium Total Bilirubin AST ALT Alkaline Phosphatase Ammonia Total Creatine Kinase CK-MB (CK-2) CK-MB (CK-2) Rel Index Total Protein Albumin Urine WBC (Auto) Vancomycin Trough Salicylates Acetaminophen Plasma/Serum Alcohol Crossmatch 12/25/19 12/25/19 12/26/19 17:37 23:29 09:47 WBC 22.1 H RBC 2.83 L Hgb 7.9 L Hct 25.5 L MCH RDW 20.0 H Plt Count 894 H Lymph % (Auto) [place] % (Auto) [place] # Baso # Seg Neutrophils % Seg Neuts % (Manual) Lymphocytes % (Manual) Monocytes % (Manual) Seg Neutrophils # Seg Neutrophils # Man Lymphocytes # (Manual) Monocytes # (Manual) Eosinophils # (Manual) Basophils # (Manual) PT INR APTT ABG pH ABG pO2 ABG HCO3 ABG O2 Saturation ABG Base Excess ABG Hemoglobin Oxyhemoglobin Sodium Potassium Chloride Carbon Dioxide BUN Creatinine Glucose POC Glucose 120 H 140 H Lactic Acid Calcium Ionized Calcium Phosphorus Magnesium Total Bilirubin AST ALT Alkaline Phosphatase Ammonia Total Creatine Kinase CK-MB (CK-2) CK-MB (CK-2) Rel Index Total Protein Albumin Urine WBC (Auto) Vancomycin Trough Salicylates Acetaminophen Plasma/Serum Alcohol Crossmatch 12/26/19 12/26/19 12/26/19 09:47 11:46 17:52 WBC RBC Hgb Hct MCH RDW Plt Count Lymph % (Auto) [place] % (Auto) [place] # Baso # Seg Neutrophils % Seg Neuts % (Manual) Lymphocytes % (Manual) Monocytes % (Manual) Seg Neutrophils # Seg Neutrophils # Man Lymphocytes # (Manual) Monocytes # (Manual) Eosinophils # (Manual) Basophils # (Manual) PT INR APTT ABG pH ABG pO2 ABG HCO3 ABG O2 Saturation ABG Base Excess ABG Hemoglobin Oxyhemoglobin Sodium Potassium Chloride Carbon Dioxide 18 L BUN 65 H Creatinine 1.4 H Glucose 132 H POC Glucose 110 H 145 H Lactic Acid Calcium Ionized Calcium Phosphorus Magnesium Total Bilirubin AST ALT Alkaline Phosphatase Ammonia Total Creatine Kinase CK-MB (CK-2) CK-MB (CK-2) Rel Index Total Protein Albumin Urine WBC (Auto) Vancomycin Trough Salicylates Acetaminophen Plasma/Serum Alcohol Crossmatch 12/27/19 12/27/19 12/27/19 00:01 03:42 03:42 WBC 18.0 H RBC 2.86 L Hgb 8.0 L Hct 25.2 L MCH RDW 19.2 H Plt Count 873 H Lymph % (Auto) 8.4 L [place] % (Auto) 7.5 H [place] # 1.4 H Baso # 0.2 H Seg Neutrophils % 82.2 H Seg Neuts % (Manual) Lymphocytes % (Manual) Monocytes % (Manual) Seg Neutrophils # 14.8 H Seg Neutrophils # Man Lymphocytes # (Manual) Monocytes # (Manual) Eosinophils # (Manual) Basophils # (Manual) PT INR APTT ABG pH ABG pO2 ABG HCO3 ABG O2 Saturation ABG Base Excess ABG Hemoglobin Oxyhemoglobin Sodium Potassium Chloride Carbon Dioxide BUN 73 H Creatinine 1.4 H Glucose 119 H POC Glucose 124 H Lactic Acid Calcium Ionized Calcium Phosphorus Magnesium Total Bilirubin AST ALT Alkaline Phosphatase Ammonia Total Creatine Kinase CK-MB (CK-2) CK-MB (CK-2) Rel Index Total Protein Albumin Urine WBC (Auto) Vancomycin Trough Salicylates Acetaminophen Plasma/Serum Alcohol Crossmatch 12/27/19 12/27/19 12/27/19 05:45 11:45 17:29 WBC RBC Hgb Hct MCH RDW Plt Count Lymph % (Auto) [place] % (Auto) [place] # Baso # Seg Neutrophils % Seg Neuts % (Manual) Lymphocytes % (Manual) Monocytes % (Manual) Seg Neutrophils # Seg Neutrophils # Man Lymphocytes # (Manual) Monocytes # (Manual) Eosinophils # (Manual) Basophils # (Manual) PT INR APTT ABG pH ABG pO2 ABG HCO3 ABG O2 Saturation ABG Base Excess ABG Hemoglobin Oxyhemoglobin Sodium Potassium Chloride Carbon Dioxide BUN Creatinine Glucose POC Glucose 131 H 123 H 134 H Lactic Acid Calcium Ionized Calcium Phosphorus Magnesium Total Bilirubin AST ALT Alkaline Phosphatase Ammonia Total Creatine Kinase CK-MB (CK-2) CK-MB (CK-2) Rel Index Total Protein Albumin Urine WBC (Auto) Vancomycin Trough Salicylates Acetaminophen Plasma/Serum Alcohol Crossmatch 12/28/19 12/28/19 12/28/19 00:12 05:14 11:53 WBC RBC Hgb Hct MCH RDW Plt Count Lymph % (Auto) [place] % (Auto) [place] # Baso # Seg Neutrophils % Seg Neuts % (Manual) Lymphocytes % (Manual) Monocytes % (Manual) Seg Neutrophils # Seg Neutrophils # Man Lymphocytes # (Manual) Monocytes # (Manual) Eosinophils # (Manual) Basophils # (Manual) PT INR APTT ABG pH ABG pO2 ABG HCO3 ABG O2 Saturation ABG Base Excess ABG Hemoglobin Oxyhemoglobin Sodium Potassium Chloride Carbon Dioxide BUN Creatinine Glucose POC Glucose 138 H 130 H 146 H Lactic Acid Calcium Ionized Calcium Phosphorus Magnesium Total Bilirubin AST ALT Alkaline Phosphatase Ammonia Total Creatine Kinase CK-MB (CK-2) CK-MB (CK-2) Rel Index Total Protein Albumin Urine WBC (Auto) Vancomycin Trough Salicylates Acetaminophen Plasma/Serum Alcohol Crossmatch 12/28/19 12/29/19 12/29/19 17:39 00:01 18:11 WBC RBC Hgb Hct MCH RDW Plt Count Lymph % (Auto) [place] % (Auto) [place] # Baso # Seg Neutrophils % Seg Neuts % (Manual) Lymphocytes % (Manual) Monocytes % (Manual) Seg Neutrophils # Seg Neutrophils # Man Lymphocytes # (Manual) Monocytes # (Manual) Eosinophils # (Manual) Basophils # (Manual) PT INR APTT ABG pH ABG pO2 ABG HCO3 ABG O2 Saturation ABG Base Excess ABG Hemoglobin Oxyhemoglobin Sodium Potassium Chloride Carbon Dioxide BUN Creatinine Glucose POC Glucose 117 H 139 H 130 H Lactic Acid Calcium Ionized Calcium Phosphorus Magnesium Total Bilirubin AST ALT Alkaline Phosphatase Ammonia Total Creatine Kinase CK-MB (CK-2) CK-MB (CK-2) Rel Index Total Protein Albumin Urine WBC (Auto) Vancomycin Trough Salicylates Acetaminophen Plasma/Serum Alcohol Crossmatch 12/29/19 12/30/19 12/30/19 23:09 00:02 01:06 WBC 16.7 H RBC 2.91 L Hgb 8.2 L Hct 25.4 L MCH RDW 18.7 H Plt Count 708 H Lymph % (Auto) 9.4 L [place] % (Auto) [place] # 0.9 H Baso # Seg Neutrophils % 83.5 H Seg Neuts % (Manual) Lymphocytes % (Manual) Monocytes % (Manual) Seg Neutrophils # 14.0 H Seg Neutrophils # Man Lymphocytes # (Manual) Monocytes # (Manual) Eosinophils # (Manual) Basophils # (Manual) PT INR APTT ABG pH ABG pO2 ABG HCO3 ABG O2 Saturation ABG Base Excess ABG Hemoglobin Oxyhemoglobin Sodium Potassium Chloride Carbon Dioxide BUN Creatinine Glucose POC Glucose 120 H 114 H Lactic Acid Calcium Ionized Calcium Phosphorus Magnesium Total Bilirubin AST ALT Alkaline Phosphatase Ammonia Total Creatine Kinase CK-MB (CK-2) CK-MB (CK-2) Rel Index Total Protein Albumin Urine WBC (Auto) Vancomycin Trough Salicylates Acetaminophen Plasma/Serum Alcohol Crossmatch 12/30/19 12/30/19 12/30/19 01:06 04:23 05:18 WBC RBC Hgb Hct MCH RDW Plt Count Lymph % (Auto) [place] % (Auto) [place] # Baso # Seg Neutrophils % Seg Neuts % (Manual) Lymphocytes % (Manual) Monocytes % (Manual) Seg Neutrophils # Seg Neutrophils # Man Lymphocytes # (Manual) Monocytes # (Manual) Eosinophils # (Manual) Basophils # (Manual) PT INR APTT ABG pH ABG pO2 ABG HCO3 ABG O2 Saturation ABG Base Excess ABG Hemoglobin 8.3 L Oxyhemoglobin Sodium Potassium Chloride Carbon Dioxide BUN 70 H Creatinine Glucose 122 H POC Glucose 130 H Lactic Acid Calcium Ionized Calcium Phosphorus Magnesium Total Bilirubin AST ALT Alkaline Phosphatase Ammonia Total Creatine Kinase CK-MB (CK-2) CK-MB (CK-2) Rel Index Total Protein Albumin Urine WBC (Auto) Vancomycin Trough Salicylates Acetaminophen Plasma/Serum Alcohol Crossmatch 12/30/19 12/30/19 12/30/19 05:40 12:17 17:43 WBC RBC Hgb Hct MCH RDW Plt Count Lymph % (Auto) [place] % (Auto) [place] # Baso # Seg Neutrophils % Seg Neuts % (Manual) Lymphocytes % (Manual) Monocytes % (Manual) Seg Neutrophils # Seg Neutrophils # Man Lymphocytes # (Manual) Monocytes # (Manual) Eosinophils # (Manual) Basophils # (Manual) PT INR APTT ABG pH ABG pO2 ABG HCO3 ABG O2 Saturation ABG Base Excess ABG Hemoglobin Oxyhemoglobin Sodium Potassium Chloride Carbon Dioxide BUN Creatinine Glucose POC Glucose 135 H 132 H 118 H Lactic Acid Calcium Ionized Calcium Phosphorus Magnesium Total Bilirubin AST ALT Alkaline Phosphatase Ammonia Total Creatine Kinase CK-MB (CK-2) CK-MB (CK-2) Rel Index Total Protein Albumin Urine WBC (Auto) Vancomycin Trough Salicylates Acetaminophen Plasma/Serum Alcohol Crossmatch 12/30/19 12/31/19 12/31/19 23:29 05:19 17:50 WBC RBC Hgb Hct MCH RDW Plt Count Lymph % (Auto) [place] % (Auto) [place] # Baso # Seg Neutrophils % Seg Neuts % (Manual) Lymphocytes % (Manual) Monocytes % (Manual) Seg Neutrophils # Seg Neutrophils # Man Lymphocytes # (Manual) Monocytes # (Manual) Eosinophils # (Manual) Basophils # (Manual) PT INR APTT ABG pH ABG pO2 ABG HCO3 ABG O2 Saturation ABG Base Excess ABG Hemoglobin Oxyhemoglobin Sodium Potassium Chloride Carbon Dioxide BUN Creatinine Glucose POC Glucose 114 H 109 H 116 H Lactic Acid Calcium Ionized Calcium Phosphorus Magnesium Total Bilirubin AST ALT Alkaline Phosphatase Ammonia Total Creatine Kinase CK-MB (CK-2) CK-MB (CK-2) Rel Index Total Protein Albumin Urine WBC (Auto) Vancomycin Trough Salicylates Acetaminophen Plasma/Serum Alcohol Crossmatch 01/01/20 01/01/20 01/01/20 00:10 05:19 12:02 WBC RBC Hgb Hct MCH RDW Plt Count Lymph % (Auto) [place] % (Auto) [place] # Baso # Seg Neutrophils % Seg Neuts % (Manual) Lymphocytes % (Manual) Monocytes % (Manual) Seg Neutrophils # Seg Neutrophils # Man Lymphocytes # (Manual) Monocytes # (Manual) Eosinophils # (Manual) Basophils # (Manual) PT INR APTT ABG pH ABG pO2 ABG HCO3 ABG O2 Saturation ABG Base Excess ABG Hemoglobin Oxyhemoglobin Sodium Potassium Chloride Carbon Dioxide BUN Creatinine Glucose POC Glucose 131 H 122 H 136 H Lactic Acid Calcium Ionized Calcium Phosphorus Magnesium Total Bilirubin AST ALT Alkaline Phosphatase Ammonia Total Creatine Kinase CK-MB (CK-2) CK-MB (CK-2) Rel Index Total Protein Albumin Urine WBC (Auto) Vancomycin Trough Salicylates Acetaminophen Plasma/Serum Alcohol Crossmatch 01/02/20 01/02/20 01/02/20 00:24 05:36 11:41 WBC RBC Hgb Hct MCH RDW Plt Count Lymph % (Auto) [place] % (Auto) [place] # Baso # Seg Neutrophils % Seg Neuts % (Manual) Lymphocytes % (Manual) Monocytes % (Manual) Seg Neutrophils # Seg Neutrophils # Man Lymphocytes # (Manual) Monocytes # (Manual) Eosinophils # (Manual) Basophils # (Manual) PT INR APTT ABG pH ABG pO2 ABG HCO3 ABG O2 Saturation ABG Base Excess ABG Hemoglobin Oxyhemoglobin Sodium Potassium Chloride Carbon Dioxide BUN Creatinine Glucose POC Glucose 119 H 109 H 125 H Lactic Acid Calcium Ionized Calcium Phosphorus Magnesium Total Bilirubin AST ALT Alkaline Phosphatase Ammonia Total Creatine Kinase CK-MB (CK-2) CK-MB (CK-2) Rel Index Total Protein Albumin Urine WBC (Auto) Vancomycin Trough Salicylates Acetaminophen Plasma/Serum Alcohol Crossmatch 01/02/20 01/03/20 01/03/20 17:49 05:29 12:13 WBC RBC Hgb Hct MCH RDW Plt Count Lymph % (Auto) [place] % (Auto) [place] # Baso # Seg Neutrophils % Seg Neuts % (Manual) Lymphocytes % (Manual) Monocytes % (Manual) Seg Neutrophils # Seg Neutrophils # Man Lymphocytes # (Manual) Monocytes # (Manual) Eosinophils # (Manual) Basophils # (Manual) PT INR APTT ABG pH ABG pO2 ABG HCO3 ABG O2 Saturation ABG Base Excess ABG Hemoglobin Oxyhemoglobin Sodium Potassium Chloride Carbon Dioxide BUN Creatinine Glucose POC Glucose 130 H 132 H 113 H Lactic Acid Calcium Ionized Calcium Phosphorus Magnesium Total Bilirubin AST ALT Alkaline Phosphatase Ammonia Total Creatine Kinase CK-MB (CK-2) CK-MB (CK-2) Rel Index Total Protein Albumin Urine WBC (Auto) Vancomycin Trough Salicylates Acetaminophen Plasma/Serum Alcohol Crossmatch 01/03/20 01/04/20 01/04/20 17:32 00:19 05:26 WBC RBC Hgb Hct MCH RDW Plt Count Lymph % (Auto) [place] % (Auto) [place] # Baso # Seg Neutrophils % Seg Neuts % (Manual) Lymphocytes % (Manual) Monocytes % (Manual) Seg Neutrophils # Seg Neutrophils # Man Lymphocytes # (Manual) Monocytes # (Manual) Eosinophils # (Manual) Basophils # (Manual) PT INR APTT ABG pH ABG pO2 ABG HCO3 ABG O2 Saturation ABG Base Excess ABG Hemoglobin Oxyhemoglobin Sodium Potassium Chloride Carbon Dioxide BUN Creatinine Glucose POC Glucose 127 H 141 H 129 H Lactic Acid Calcium Ionized Calcium Phosphorus Magnesium Total Bilirubin AST ALT Alkaline Phosphatase Ammonia Total Creatine Kinase CK-MB (CK-2) CK-MB (CK-2) Rel Index Total Protein Albumin Urine WBC (Auto) Vancomycin Trough Salicylates Acetaminophen Plasma/Serum Alcohol Crossmatch 01/04/20 01/04/20 01/05/20 11:39 17:29 05:22 WBC RBC Hgb Hct MCH RDW Plt Count Lymph % (Auto) [place] % (Auto) [place] # Baso # Seg Neutrophils % Seg Neuts % (Manual) Lymphocytes % (Manual) Monocytes % (Manual) Seg Neutrophils # Seg Neutrophils # Man Lymphocytes # (Manual) Monocytes # (Manual) Eosinophils # (Manual) Basophils # (Manual) PT INR APTT ABG pH ABG pO2 ABG HCO3 ABG O2 Saturation ABG Base Excess ABG Hemoglobin Oxyhemoglobin Sodium Potassium Chloride Carbon Dioxide BUN Creatinine Glucose POC Glucose 167 H 132 H 121 H Lactic Acid Calcium Ionized Calcium Phosphorus Magnesium Total Bilirubin AST ALT Alkaline Phosphatase Ammonia Total Creatine Kinase CK-MB (CK-2) CK-MB (CK-2) Rel Index Total Protein Albumin Urine WBC (Auto) Vancomycin Trough Salicylates Acetaminophen Plasma/Serum Alcohol Crossmatch 01/05/20 01/05/20 01/05/20 12:25 17:40 18:06 WBC RBC Hgb Hct MCH RDW Plt Count Lymph % (Auto) [place] % (Auto) [place] # Baso # Seg Neutrophils % Seg Neuts % (Manual) Lymphocytes % (Manual) Monocytes % (Manual) Seg Neutrophils # Seg Neutrophils # Man Lymphocytes # (Manual) Monocytes # (Manual) Eosinophils # (Manual) Basophils # (Manual) PT INR APTT ABG pH 7.472 H ABG pO2 99.2 H ABG HCO3 ABG O2 Saturation ABG Base Excess ABG Hemoglobin 7.8 L Oxyhemoglobin Sodium Potassium Chloride Carbon Dioxide BUN Creatinine Glucose POC Glucose 106 H 110 H Lactic Acid Calcium Ionized Calcium Phosphorus Magnesium Total Bilirubin AST ALT Alkaline Phosphatase Ammonia Total Creatine Kinase CK-MB (CK-2) CK-MB (CK-2) Rel Index Total Protein Albumin Urine WBC (Auto) Vancomycin Trough Salicylates Acetaminophen Plasma/Serum Alcohol Crossmatch 01/06/20 01/06/20 01/06/20 00:11 05:16 11:30 WBC RBC Hgb Hct MCH RDW Plt Count Lymph % (Auto) [place] % (Auto) [place] # Baso # Seg Neutrophils % Seg Neuts % (Manual) Lymphocytes % (Manual) Monocytes % (Manual) Seg Neutrophils # Seg Neutrophils # Man Lymphocytes # (Manual) Monocytes # (Manual) Eosinophils # (Manual) Basophils # (Manual) PT INR APTT ABG pH ABG pO2 ABG HCO3 ABG O2 Saturation ABG Base Excess ABG Hemoglobin Oxyhemoglobin Sodium Potassium Chloride Carbon Dioxide BUN Creatinine Glucose POC Glucose 108 H 124 H 125 H Lactic Acid Calcium Ionized Calcium Phosphorus Magnesium Total Bilirubin AST ALT Alkaline Phosphatase Ammonia Total Creatine Kinase CK-MB (CK-2) CK-MB (CK-2) Rel Index Total Protein Albumin Urine WBC (Auto) Vancomycin Trough Salicylates Acetaminophen Plasma/Serum Alcohol Crossmatch 01/06/20 01/06/20 01/07/20 17:53 23:51 04:12 WBC 16.5 H RBC 3.29 L Hgb 9.3 L Hct 28.1 L MCH RDW 18.2 H Plt Count 526 H Lymph % (Auto) 8.4 L [place] % (Auto) [place] # 1.0 H Baso # Seg Neutrophils % 84.4 H Seg Neuts % (Manual) Lymphocytes % (Manual) Monocytes % (Manual) Seg Neutrophils # 13.9 H Seg Neutrophils # Man Lymphocytes # (Manual) Monocytes # (Manual) Eosinophils # (Manual) Basophils # (Manual) PT INR APTT ABG pH ABG pO2 ABG HCO3 ABG O2 Saturation ABG Base Excess ABG Hemoglobin Oxyhemoglobin Sodium Potassium Chloride Carbon Dioxide BUN Creatinine Glucose POC Glucose 166 H 128 H Lactic Acid Calcium Ionized Calcium Phosphorus Magnesium Total Bilirubin AST ALT Alkaline Phosphatase Ammonia Total Creatine Kinase CK-MB (CK-2) CK-MB (CK-2) Rel Index Total Protein Albumin Urine WBC (Auto) Vancomycin Trough Salicylates Acetaminophen Plasma/Serum Alcohol Crossmatch 01/07/20 01/07/20 01/07/20 04:12 04:45 11:51 WBC RBC Hgb Hct MCH RDW Plt Count Lymph % (Auto) [place] % (Auto) [place] # Baso # Seg Neutrophils % Seg Neuts % (Manual) Lymphocytes % (Manual) Monocytes % (Manual) Seg Neutrophils # Seg Neutrophils # Man Lymphocytes # (Manual) Monocytes # (Manual) Eosinophils # (Manual) Basophils # (Manual) PT INR APTT ABG pH ABG pO2 ABG HCO3 ABG O2 Saturation ABG Base Excess ABG Hemoglobin Oxyhemoglobin Sodium 136 L Potassium Chloride Carbon Dioxide 21 L BUN 44 H Creatinine 0.6 L Glucose 124 H POC Glucose 134 H 138 H Lactic Acid Calcium Ionized Calcium Phosphorus Magnesium Total Bilirubin AST ALT Alkaline Phosphatase Ammonia Total Creatine Kinase CK-MB (CK-2) CK-MB (CK-2) Rel Index Total Protein Albumin Urine WBC (Auto) Vancomycin Trough Salicylates Acetaminophen Plasma/Serum Alcohol Crossmatch Allied health notes reviewed: RT
[2020-01-07] MEDS: QUEtiapine 100 MG TAB PO SCH (21:39)
[2020-01-08] MEDS: GLYCOPYRROLATE 1 MG TAB PO SCH ×3 (08:59→20:20)
[2020-01-08] MEDS: SERTRALINE 50 MG TAB PO SCH (09:00)
[2020-01-08] MEDS: LANSOPRAZOLE 30 MG SOLUTAB FEEDTUBE SCH (09:00)
[2020-01-08] MEDS: QUEtiapine 200 MG TAB PO SCH (09:00)
[2020-01-08] MEDS: MIRTAZAPINE 30 MG TAB PO SCH (09:00)
[2020-01-08] MEDS: TAMSULOSIN 0.4 MG CAP PO SCH (09:00)
[2020-01-08] MEDS: levETIRAcetam 500 MG/5 ML ORAL LIQD PO SCH ×2 (09:00→22:24)
--- NOTE | 2020-01-08 09:57 | Progress Note ---
Assessment and Plan Acute cardiopulmonary arrest with ROSC Acute hypoxemic respiratory failure on MVS MRSA Bacteremia MRSA pneumonia Acute wfixghrbw-zziqw-sabagu encephalopathy Metabolic acidosis/alcoholic acidosis/Lactic acidosis( resolved) Ischemic hepatitis Leucocytosis - persistent Erythrocytosis Tobacco use disorder Alcohol use Disorder -CBC, BMP prn- some leukocytosis, trend counts and temperature curve -Trach care, airway clearance, secretion management( continue scopolamine patch and Robinul, will increase Robinul dose) -Bowel regime while on anti-cholinergics -CXR, ABG prn -Weaning trials as tolerated- place on ATP fro 12 hours, get ABG at the end of the 12 hour trial -Continue contact isolation for MRSA -Continue all care as documented below. -Continue with MVS, Lung protective strategies, monitor airway pressures -VAP bundle addressed -Continue aspiration precautions, HOB>40 -Continue daily assessment for readiness for SBT -Continue Stress ulcer prophylaxis -Continue enteric nutritional support at goal rate. -Continue to monitor glycemic control, with target blood glucose 140-180 mg/dL while critically ill. -Avoid hypoglycemia - Continue to wean supplemental oxygen for target O2 sat's > 90% -Continue thiamine, multivitamin and electrolyte replacement -Continue to avoid nephrotoxins, adjust all medications for GFR and CrCL - Continue bronchodilators with pulmonary hygiene - Continue prn analgesia per CPOT score - Continue to maintain of sleep-wake cycle, avoid delirium - PT/OT/ROM exercises - Continue mobility protocol and skin assessment per protocol for pressure ulcer prevention - Continue to monitor for clinical seizures - continue other care per attending / other consultants CONDITION: FAIR PROGNOSIS: GUARDED CODE STATUS: DNAR Subjective Date of service: 01/08/20 Principal diagnosis: Ac cardiopulmonary arrest; Ac hypoxemic resp failure; Acute encephalopathy Interval history: Patient is seen today for: Acute cardiopulmonary arrest with ROSC; Acute hypoxemic respiratory failure; Acute metabolic-toxic encephalopathy; Ischemic hepatitis; Leucocytosis with lactic acidosis; Tobacco use disorder; Alcohol use Disorder; s/p tracheostomy; s/p PEG Seen and examined at bedside; 24hour events reviewed; nursing and respiratory care staff consulted; no adverse overnight events reported to me; resting peacefully in bed; more awake and alert, tracking voice , tolerated ATP trials yesterday for 8 hours ; no fevers s/p Trach [place] 8, AC-VC24/400/6/30% No fevers, no vomiting, strong cough Copious tracheal secretions Objective Vital Signs - 12hr 01/07/20 01/07/20 01/08/20 22:00 23:00 00:00 Temperature 97.3 F L Pulse Rate 112 H 114 H 111 H Respiratory 24 24 24 Rate Blood Pressure 123/73 123/83 108/73 O2 Sat by Pulse 100 100 100 Oximetry O2 Sat by Pulse Oximetry [ Assessment] 01/08/20 01/08/20 01/08/20 00:05 00:23 01:00 Temperature Pulse Rate 113 H 113 H 115 H Respiratory 24 Rate Blood Pressure 108/71 110/74 O2 Sat by Pulse 100 100 Oximetry O2 Sat by Pulse Oximetry [ Assessment] 01/08/20 01/08/20 01/08/20 02:00 03:00 03:39 Temperature 97.8 F Pulse Rate 108 H 112 H Respiratory 24 23 Rate Blood Pressure 116/77 116/78 O2 Sat by Pulse 100 100 Oximetry O2 Sat by Pulse Oximetry [ Assessment] 01/08/20 01/08/20 01/08/20 04:00 04:46 04:58 Temperature Pulse Rate 109 H 116 H Respiratory 24 Rate Blood Pressure 125/84 125/84 O2 Sat by Pulse 100 100 Oximetry O2 Sat by Pulse 100 Oximetry [ Assessment] 01/08/20 01/08/20 01/08/20 04:59 05:00 05:17 Temperature Pulse Rate 116 H 113 H Respiratory 23 Rate Blood Pressure 125/84 O2 Sat by Pulse 100 100 Oximetry O2 Sat by Pulse Oximetry [ Assessment] 01/08/20 01/08/20 01/08/20 06:00 08:17 08:24 Temperature Pulse Rate 114 H 108 H 108 H Respiratory 24 Rate Blood Pressure 127/87 134/96 134/96 O2 Sat by Pulse 100 100 100 Oximetry O2 Sat by Pulse Oximetry [ Assessment] 01/08/20 08:25 Temperature Pulse Rate Respiratory Rate Blood Pressure O2 Sat by Pulse 100 Oximetry O2 Sat by Pulse Oximetry [ Assessment] Constitutional: no acute distress, other (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, with midline tracheostomy to MVS, comfortable) Eyes: non-icteric ENT: oropharynx moist, other (s/p trach) Neck: supple, no lymphadenopathy, no JVD Effort: normal Ascultation: Bilateral: diminished breath sounds, rhonchi Percussion: Bilateral: not dull Cardiovascular: regular rate and rhythm (tachycardia), other (S1,S2) Gastrointestinal: normoactive bowel sounds, soft, non-tender, non-distended Integumentary: normal Extremities: no cyanosis, no edema, pulses normal, no ischemia or petechiae Neurologic: pupils equal and round, other (awake, tracking voice ) Psychiatric: other (Psychiatric: Unable to assess) CBC and BMP: 01/07/20 04:12 01/07/20 04:12 ABG, PT/INR, D-dimer: ABG ABG pH 7.472 pH Units (7.350-7.450) H 01/05/20 18:06 ABG pCO2 34.5 mm Hg 01/05/20 18:06 ABG pO2 99.2 mm Hg (80.0-90.0) H 01/05/20 18:06 ABG O2 Saturation 97.8 % (95.0-99.0) 01/05/20 18:06 PT/INR, D-dimer PT 17.0 Sec. (12.2-14.9) H 11/23/19 03:47 INR 1.36 (0.87-1.13) H 11/23/19 03:47 Abnormal lab findings: Abnormal Labs 11/22/19 11/22/19 11/22/19 23:17 23:18 23:27 WBC 21.2 H RBC 3.59 L Hgb 9.8 L Hct MCH 27 L RDW 18.6 H Plt Count 454 H Lymph % (Auto) [place] % (Auto) [place] # Baso # Seg Neutrophils % Seg Neuts % (Manual) 86.0 H Lymphocytes % (Manual) 9.0 L Monocytes % (Manual) Seg Neutrophils # Seg Neutrophils # Man 18.2 H Lymphocytes # (Manual) Monocytes # (Manual) 1.1 H Eosinophils # (Manual) Basophils # (Manual) PT INR APTT ABG pH ABG pO2 ABG HCO3 ABG O2 Saturation ABG Base Excess ABG Hemoglobin Oxyhemoglobin Sodium Potassium Chloride Carbon Dioxide BUN Creatinine Glucose POC Glucose 53 L Lactic Acid Calcium Ionized Calcium Phosphorus Magnesium Total Bilirubin AST ALT Alkaline Phosphatase Ammonia Total Creatine Kinase CK-MB (CK-2) CK-MB (CK-2) Rel Index Total Protein Albumin Urine WBC (Auto) 40.0 H Vancomycin Trough Salicylates Acetaminophen Plasma/Serum Alcohol Crossmatch 11/22/19 11/22/19 11/22/19 23:27 23:27 23:27 WBC RBC Hgb Hct MCH RDW Plt Count Lymph % (Auto) [place] % (Auto) [place] # Baso # Seg Neutrophils % Seg Neuts % (Manual) Lymphocytes % (Manual) Monocytes % (Manual) Seg Neutrophils # Seg Neutrophils # Man Lymphocytes # (Manual) Monocytes # (Manual) Eosinophils # (Manual) Basophils # (Manual) PT INR APTT ABG pH ABG pO2 ABG HCO3 ABG O2 Saturation ABG Base Excess ABG Hemoglobin Oxyhemoglobin Sodium Potassium 2.4 L* Chloride 85.1 L Carbon Dioxide 19 L BUN Creatinine 0.5 L Glucose 261 H POC Glucose Lactic Acid Calcium Ionized Calcium Phosphorus Magnesium Total Bilirubin AST 609 H ALT 152 H Alkaline Phosphatase 160 H Ammonia 117.0 H Total Creatine Kinase 139 H CK-MB (CK-2) 8.3 H CK-MB (CK-2) Rel Index 5.9 H Total Protein Albumin 3.6 L Urine WBC (Auto) Vancomycin Trough Salicylates < 0.3 L Acetaminophen Plasma/Serum Alcohol Crossmatch 11/22/19 11/22/19 11/23/19 23:27 23:27 01:10 WBC RBC Hgb Hct MCH RDW Plt Count Lymph % (Auto) [place] % (Auto) [place] # Baso # Seg Neutrophils % Seg Neuts % (Manual) Lymphocytes % (Manual) Monocytes % (Manual) Seg Neutrophils # Seg Neutrophils # Man Lymphocytes # (Manual) Monocytes # (Manual) Eosinophils # (Manual) Basophils # (Manual) PT INR APTT ABG pH 7.273 L ABG pO2 209.7 H ABG HCO3 ABG O2 Saturation 99.2 H ABG Base Excess -3.9 L ABG Hemoglobin 10.6 L Oxyhemoglobin 93.9 L Sodium Potassium Chloride Carbon Dioxide BUN Creatinine Glucose POC Glucose Lactic Acid Calcium Ionized Calcium Phosphorus Magnesium Total Bilirubin AST ALT Alkaline Phosphatase Ammonia Total Creatine Kinase CK-MB (CK-2) CK-MB (CK-2) Rel Index Total Protein Albumin Urine WBC (Auto) Vancomycin Trough Salicylates Acetaminophen < 5.0 L Plasma/Serum Alcohol 0.08 H Crossmatch 11/23/19 11/23/19 11/23/19 01:19 01:19 03:47 WBC RBC Hgb Hct MCH RDW Plt Count Lymph % (Auto) [place] % (Auto) [place] # Baso # Seg Neutrophils % Seg Neuts % (Manual) Lymphocytes % (Manual) Monocytes % (Manual) Seg Neutrophils # Seg Neutrophils # Man Lymphocytes # (Manual) Monocytes # (Manual) Eosinophils # (Manual) Basophils # (Manual) PT 16.3 H INR 1.29 H APTT ABG pH ABG pO2 ABG HCO3 ABG O2 Saturation ABG Base Excess ABG Hemoglobin Oxyhemoglobin Sodium Potassium Chloride Carbon Dioxide BUN Creatinine Glucose POC Glucose Lactic Acid 2.10 H* 5.00 H* Calcium Ionized Calcium Phosphorus Magnesium Total Bilirubin AST ALT Alkaline Phosphatase Ammonia Total Creatine Kinase CK-MB (CK-2) CK-MB (CK-2) Rel Index Total Protein Albumin Urine WBC (Auto) Vancomycin Trough Salicylates Acetaminophen Plasma/Serum Alcohol Crossmatch 11/23/19 11/23/19 11/23/19 03:47 03:47 04:53 WBC RBC Hgb 9.4 L Hct MCH RDW Plt Count Lymph % (Auto) [place] % (Auto) [place] # Baso # Seg Neutrophils % Seg Neuts % (Manual) Lymphocytes % (Manual) Monocytes % (Manual) Seg Neutrophils # Seg Neutrophils # Man Lymphocytes # (Manual) Monocytes # (Manual) Eosinophils # (Manual) Basophils # (Manual) PT 17.0 H INR 1.36 H APTT 128.2 H* ABG pH ABG pO2 ABG HCO3 ABG O2 Saturation ABG Base Excess ABG Hemoglobin Oxyhemoglobin Sodium Potassium Chloride Carbon Dioxide 18 L BUN Creatinine 0.5 L Glucose 105 H POC Glucose Lactic Acid Calcium 8.3 L Ionized Calcium Phosphorus 2.40 L Magnesium Total Bilirubin 1.30 H AST 761 H ALT 158 H Alkaline Phosphatase 143 H Ammonia Total Creatine Kinase CK-MB (CK-2) CK-MB (CK-2) Rel Index Total Protein Albumin 2.8 L Urine WBC (Auto) Vancomycin Trough Salicylates Acetaminophen Plasma/Serum Alcohol Crossmatch 11/23/19 11/23/19 11/23/19 05:12 06:32 06:32 WBC 16.8 H RBC 3.31 L Hgb 8.9 L Hct 28.7 L MCH 27 L RDW 18.6 H Plt Count Lymph % (Auto) [place] % (Auto) [place] # Baso # Seg Neutrophils % Seg Neuts % (Manual) 94.0 H Lymphocytes % (Manual) 1.0 L Monocytes % (Manual) Seg Neutrophils # Seg Neutrophils # Man 15.8 H Lymphocytes # (Manual) 0.2 L Monocytes # (Manual) Eosinophils # (Manual) Basophils # (Manual) PT INR APTT ABG pH ABG pO2 ABG HCO3 ABG O2 Saturation ABG Base Excess -3.2 L ABG Hemoglobin 9.0 L Oxyhemoglobin 93.6 L Sodium Potassium Chloride Carbon Dioxide BUN Creatinine Glucose POC Glucose Lactic Acid Calcium Ionized Calcium 4.5 L Phosphorus Magnesium Total Bilirubin AST ALT Alkaline Phosphatase Ammonia Total Creatine Kinase CK-MB (CK-2) CK-MB (CK-2) Rel Index Total Protein Albumin Urine WBC (Auto) Vancomycin Trough Salicylates Acetaminophen Plasma/Serum Alcohol Crossmatch 11/23/19 11/24/19 11/24/19 06:32 04:35 04:35 WBC RBC Hgb Hct MCH RDW Plt Count Lymph % (Auto) [place] % (Auto) [place] # Baso # Seg Neutrophils % Seg Neuts % (Manual) Lymphocytes % (Manual) Monocytes % (Manual) Seg Neutrophils # Seg Neutrophils # Man Lymphocytes # (Manual) Monocytes # (Manual) Eosinophils # (Manual) Basophils # (Manual) PT INR APTT ABG pH ABG pO2 ABG HCO3 ABG O2 Saturation ABG Base Excess ABG Hemoglobin Oxyhemoglobin Sodium Potassium Chloride Carbon Dioxide BUN Creatinine Glucose POC Glucose Lactic Acid 3.30 H* Calcium Ionized Calcium Phosphorus Magnesium 1.40 L Total Bilirubin AST ALT Alkaline Phosphatase Ammonia 98.0 H Total Creatine Kinase CK-MB (CK-2) CK-MB (CK-2) Rel Index Total Protein Albumin Urine WBC (Auto) Vancomycin Trough Salicylates Acetaminophen Plasma/Serum Alcohol Crossmatch 11/24/19 11/25/19 11/25/19 05:22 04:34 05:05 WBC 17.3 H RBC 2.88 L Hgb 7.8 L Hct 24.6 L MCH 27 L RDW 18.5 H Plt Count Lymph % (Auto) 7.7 L [place] % (Auto) 9.7 H [place] # 1.7 H Baso # Seg Neutrophils % 82.2 H Seg Neuts % (Manual) Lymphocytes % (Manual) Monocytes % (Manual) Seg Neutrophils # 14.2 H Seg Neutrophils # Man Lymphocytes # (Manual) Monocytes # (Manual) Eosinophils # (Manual) Basophils # (Manual) PT INR APTT ABG pH 7.475 H ABG pO2 ABG HCO3 29.4 H 32.3 H ABG O2 Saturation ABG Base Excess 5.4 H 6.9 H ABG Hemoglobin 9.0 L 10.6 L Oxyhemoglobin 94.3 L Sodium Potassium Chloride Carbon Dioxide BUN Creatinine Glucose POC Glucose Lactic Acid Calcium Ionized Calcium Phosphorus Magnesium Total Bilirubin AST ALT Alkaline Phosphatase Ammonia Total Creatine Kinase CK-MB (CK-2) CK-MB (CK-2) Rel Index Total Protein Albumin Urine WBC (Auto) Vancomycin Trough Salicylates Acetaminophen Plasma/Serum Alcohol Crossmatch 11/25/19 11/25/19 11/26/19 05:05 22:46 03:31 WBC RBC Hgb Hct MCH RDW Plt Count Lymph % (Auto) [place] % (Auto) [place] # Baso # Seg Neutrophils % Seg Neuts % (Manual) Lymphocytes % (Manual) Monocytes % (Manual) Seg Neutrophils # Seg Neutrophils # Man Lymphocytes # (Manual) Monocytes # (Manual) Eosinophils # (Manual) Basophils # (Manual) PT INR APTT ABG pH 7.459 H ABG pO2 ABG HCO3 34.2 H ABG O2 Saturation ABG Base Excess 9.4 H ABG Hemoglobin 7.6 L Oxyhemoglobin 94.8 L Sodium 152 H D 147 H Potassium 2.3 L* D 2.8 L* D Chloride 107.8 H Carbon Dioxide 31 H D 33 H BUN Creatinine 0.6 L 0.6 L Glucose 148 H 177 H POC Glucose Lactic Acid Calcium Ionized Calcium Phosphorus Magnesium Total Bilirubin AST 105 H ALT 71 H Alkaline Phosphatase 155 H Ammonia Total Creatine Kinase CK-MB (CK-2) CK-MB (CK-2) Rel Index Total Protein 5.2 L D Albumin 2.9 L Urine WBC (Auto) Vancomycin Trough Salicylates Acetaminophen Plasma/Serum Alcohol Crossmatch 11/26/19 11/26/19 11/27/19 08:24 08:24 04:20 WBC 12.0 H RBC 3.00 L Hgb 8.0 L 9.3 L Hct 25.9 L 29.7 L MCH 27 L RDW 18.5 H Plt Count Lymph % (Auto) [place] % (Auto) [place] # Baso # Seg Neutrophils % Seg Neuts % (Manual) 89.0 H Lymphocytes % (Manual) 4.0 L Monocytes % (Manual) Seg Neutrophils # Seg Neutrophils # Man 10.7 H Lymphocytes # (Manual) 0.5 L Monocytes # (Manual) Eosinophils # (Manual) Basophils # (Manual) PT INR APTT ABG pH ABG pO2 ABG HCO3 ABG O2 Saturation ABG Base Excess ABG Hemoglobin Oxyhemoglobin Sodium 146 H Potassium 3.4 L D Chloride Carbon Dioxide BUN Creatinine 0.5 L Glucose 165 H POC Glucose Lactic Acid Calcium Ionized Calcium Phosphorus Magnesium Total Bilirubin AST 57 H ALT Alkaline Phosphatase 166 H Ammonia Total Creatine Kinase CK-MB (CK-2) CK-MB (CK-2) Rel Index Total Protein Albumin 2.9 L Urine WBC (Auto) Vancomycin Trough Salicylates Acetaminophen Plasma/Serum Alcohol Crossmatch 11/27/19 11/27/19 11/27/19 04:28 04:28 04:42 WBC RBC Hgb Hct MCH RDW Plt Count Lymph % (Auto) [place] % (Auto) [place] # Baso # Seg Neutrophils % Seg Neuts % (Manual) Lymphocytes % (Manual) Monocytes % (Manual) Seg Neutrophils # Seg Neutrophils # Man Lymphocytes # (Manual) Monocytes # (Manual) Eosinophils # (Manual) Basophils # (Manual) PT INR APTT ABG pH 7.470 H ABG pO2 74.0 L ABG HCO3 33.8 H ABG O2 Saturation ABG Base Excess 9.1 H ABG Hemoglobin 8.7 L Oxyhemoglobin 94.7 L Sodium 146 H Potassium 2.9 L* Chloride Carbon Dioxide BUN 25 H Creatinine Glucose 213 H POC Glucose Lactic Acid Calcium Ionized Calcium Phosphorus 1.00 L Magnesium Total Bilirubin AST ALT Alkaline Phosphatase Ammonia Total Creatine Kinase CK-MB (CK-2) CK-MB (CK-2) Rel Index Total Protein Albumin Urine WBC (Auto) Vancomycin Trough Salicylates Acetaminophen Plasma/Serum Alcohol Crossmatch 11/27/19 11/27/19 11/27/19 05:37 12:20 15:46 WBC RBC Hgb Hct MCH RDW Plt Count Lymph % (Auto) [place] % (Auto) [place] # Baso # Seg Neutrophils % Seg Neuts % (Manual) Lymphocytes % (Manual) Monocytes % (Manual) Seg Neutrophils # Seg Neutrophils # Man Lymphocytes # (Manual) Monocytes # (Manual) Eosinophils # (Manual) Basophils # (Manual) PT INR APTT ABG pH ABG pO2 ABG HCO3 ABG O2 Saturation ABG Base Excess ABG Hemoglobin Oxyhemoglobin Sodium 146 H Potassium 3.5 L D Chloride Carbon Dioxide BUN 24 H Creatinine 0.6 L Glucose 187 H POC Glucose 117 H 220 H Lactic Acid Calcium Ionized Calcium Phosphorus Magnesium Total Bilirubin AST ALT Alkaline Phosphatase Ammonia Total Creatine Kinase CK-MB (CK-2) CK-MB (CK-2) Rel Index Total Protein Albumin Urine WBC (Auto) Vancomycin Trough Salicylates Acetaminophen Plasma/Serum Alcohol Crossmatch 11/27/19 11/28/19 11/28/19 17:28 05:00 05:02 WBC RBC Hgb Hct MCH RDW Plt Count Lymph % (Auto) [place] % (Auto) [place] # Baso # Seg Neutrophils % Seg Neuts % (Manual) Lymphocytes % (Manual) Monocytes % (Manual) Seg Neutrophils # Seg Neutrophils # Man Lymphocytes # (Manual) Monocytes # (Manual) Eosinophils # (Manual) Basophils # (Manual) PT INR APTT ABG pH ABG pO2 72.4 L ABG HCO3 33.6 H ABG O2 Saturation 94.1 L ABG Base Excess 7.3 H ABG Hemoglobin Oxyhemoglobin 91.8 L Sodium 146 H Potassium 3.3 L Chloride Carbon Dioxide BUN 25 H Creatinine 0.6 L Glucose 176 H POC Glucose 198 H Lactic Acid Calcium Ionized Calcium Phosphorus Magnesium Total Bilirubin AST ALT Alkaline Phosphatase Ammonia Total Creatine Kinase CK-MB (CK-2) CK-MB (CK-2) Rel Index Total Protein Albumin Urine WBC (Auto) Vancomycin Trough Salicylates Acetaminophen Plasma/Serum Alcohol Crossmatch 11/28/19 11/28/19 11/29/19 05:02 18:55 10:43 WBC 15.2 H 19.0 H RBC 3.06 L 3.01 L Hgb 8.3 L 8.3 L Hct 27.0 L 26.4 L MCH 27 L RDW 19.0 H 19.7 H Plt Count 479 H 611 H Lymph % (Auto) [place] % (Auto) [place] # Baso # Seg Neutrophils % Seg Neuts % (Manual) 92.0 H Lymphocytes % (Manual) 2.0 L Monocytes % (Manual) Seg Neutrophils # Seg Neutrophils # Man 14.0 H Lymphocytes # (Manual) 0.3 L Monocytes # (Manual) Eosinophils # (Manual) Basophils # (Manual) PT INR APTT ABG pH ABG pO2 ABG HCO3 ABG O2 Saturation ABG Base Excess ABG Hemoglobin Oxyhemoglobin Sodium Potassium Chloride Carbon Dioxide BUN Creatinine Glucose POC Glucose 138 H Lactic Acid Calcium Ionized Calcium Phosphorus Magnesium Total Bilirubin AST ALT Alkaline Phosphatase Ammonia Total Creatine Kinase CK-MB (CK-2) CK-MB (CK-2) Rel Index Total Protein Albumin Urine WBC (Auto) Vancomycin Trough Salicylates Acetaminophen Plasma/Serum Alcohol Crossmatch 11/29/19 11/29/19 11/29/19 10:43 12:27 19:25 WBC RBC Hgb Hct MCH RDW Plt Count Lymph % (Auto) [place] % (Auto) [place] # Baso # Seg Neutrophils % Seg Neuts % (Manual) Lymphocytes % (Manual) Monocytes % (Manual) Seg Neutrophils # Seg Neutrophils # Man Lymphocytes # (Manual) Monocytes # (Manual) Eosinophils # (Manual) Basophils # (Manual) PT INR APTT ABG pH ABG pO2 ABG HCO3 ABG O2 Saturation ABG Base Excess ABG Hemoglobin Oxyhemoglobin Sodium Potassium 2.8 L* Chloride Carbon Dioxide BUN 20 H Creatinine 0.5 L Glucose 121 H POC Glucose 128 H 120 H Lactic Acid Calcium Ionized Calcium Phosphorus Magnesium Total Bilirubin AST ALT Alkaline Phosphatase Ammonia Total Creatine Kinase CK-MB (CK-2) CK-MB (CK-2) Rel Index Total Protein Albumin Urine WBC (Auto) Vancomycin Trough Salicylates Acetaminophen Plasma/Serum Alcohol Crossmatch 11/29/19 11/30/19 11/30/19 23:46 04:10 05:02 WBC RBC Hgb Hct MCH RDW Plt Count Lymph % (Auto) [place] % (Auto) [place] # Baso # Seg Neutrophils % Seg Neuts % (Manual) Lymphocytes % (Manual) Monocytes % (Manual) Seg Neutrophils # Seg Neutrophils # Man Lymphocytes # (Manual) Monocytes # (Manual) Eosinophils # (Manual) Basophils # (Manual) PT INR APTT ABG pH ABG pO2 76.3 L ABG HCO3 32.5 H ABG O2 Saturation ABG Base Excess 6.9 H ABG Hemoglobin 8.0 L Oxyhemoglobin 92.6 L Sodium Potassium Chloride Carbon Dioxide BUN Creatinine Glucose POC Glucose 116 H 128 H Lactic Acid Calcium Ionized Calcium Phosphorus Magnesium Total Bilirubin AST ALT Alkaline Phosphatase Ammonia Total Creatine Kinase CK-MB (CK-2) CK-MB (CK-2) Rel Index Total Protein Albumin Urine WBC (Auto) Vancomycin Trough Salicylates Acetaminophen Plasma/Serum Alcohol Crossmatch 11/30/19 11/30/19 11/30/19 05:25 05:25 12:59 WBC 18.4 H RBC 3.10 L Hgb 8.5 L Hct 27.5 L MCH 27 L RDW 20.9 H Plt Count 691 H Lymph % (Auto) 7.1 L [place] % (Auto) 7.7 H [place] # 1.4 H Baso # Seg Neutrophils % 83.4 H Seg Neuts % (Manual) Lymphocytes % (Manual) Monocytes % (Manual) Seg Neutrophils # 15.4 H Seg Neutrophils # Man Lymphocytes # (Manual) Monocytes # (Manual) Eosinophils # (Manual) Basophils # (Manual) PT INR APTT ABG pH ABG pO2 ABG HCO3 ABG O2 Saturation ABG Base Excess ABG Hemoglobin Oxyhemoglobin Sodium 146 H Potassium Chloride 107.2 H Carbon Dioxide BUN Creatinine 0.5 L Glucose 132 H POC Glucose 124 H Lactic Acid Calcium Ionized Calcium Phosphorus Magnesium Total Bilirubin AST 246 H ALT 274 H Alkaline Phosphatase 203 H Ammonia Total Creatine Kinase CK-MB (CK-2) CK-MB (CK-2) Rel Index Total Protein 5.4 L Albumin 2.9 L Urine WBC (Auto) Vancomycin Trough Salicylates Acetaminophen Plasma/Serum Alcohol Crossmatch 11/30/19 12/01/19 12/01/19 17:53 00:05 05:10 WBC RBC Hgb Hct MCH RDW Plt Count Lymph % (Auto) [place] % (Auto) [place] # Baso # Seg Neutrophils % Seg Neuts % (Manual) Lymphocytes % (Manual) Monocytes % (Manual) Seg Neutrophils # Seg Neutrophils # Man Lymphocytes # (Manual) Monocytes # (Manual) Eosinophils # (Manual) Basophils # (Manual) PT INR APTT ABG pH ABG pO2 ABG HCO3 ABG O2 Saturation ABG Base Excess ABG Hemoglobin Oxyhemoglobin Sodium Potassium Chloride Carbon Dioxide BUN Creatinine Glucose POC Glucose 113 H 143 H 145 H Lactic Acid Calcium Ionized Calcium Phosphorus Magnesium Total Bilirubin AST ALT Alkaline Phosphatase Ammonia Total Creatine Kinase CK-MB (CK-2) CK-MB (CK-2) Rel Index Total Protein Albumin Urine WBC (Auto) Vancomycin Trough Salicylates Acetaminophen Plasma/Serum Alcohol Crossmatch 12/01/19 12/01/19 12/01/19 05:33 08:23 08:23 WBC 22.7 H RBC 2.88 L Hgb 7.9 L Hct 25.2 L MCH 27 L RDW 21.0 H Plt Count 732 H Lymph % (Auto) [place] % (Auto) [place] # Baso # Seg Neutrophils % Seg Neuts % (Manual) 91.0 H Lymphocytes % (Manual) 3.0 L Monocytes % (Manual) Seg Neutrophils # Seg Neutrophils # Man 20.7 H Lymphocytes # (Manual) 0.7 L Monocytes # (Manual) 1.1 H Eosinophils # (Manual) Basophils # (Manual) PT INR APTT ABG pH ABG pO2 68.6 L ABG HCO3 34.1 H ABG O2 Saturation ABG Base Excess 9.0 H ABG Hemoglobin 6.5 L Oxyhemoglobin 94.7 L Sodium Potassium Chloride Carbon Dioxide BUN Creatinine 0.5 L Glucose 125 H POC Glucose Lactic Acid Calcium Ionized Calcium Phosphorus Magnesium Total Bilirubin AST ALT Alkaline Phosphatase Ammonia Total Creatine Kinase CK-MB (CK-2) CK-MB (CK-2) Rel Index Total Protein Albumin Urine WBC (Auto) Vancomycin Trough Salicylates Acetaminophen Plasma/Serum Alcohol Crossmatch 12/01/19 12/01/19 12/01/19 13:21 17:54 20:59 WBC RBC Hgb Hct MCH RDW Plt Count Lymph % (Auto) [place] % (Auto) [place] # Baso # Seg Neutrophils % Seg Neuts % (Manual) Lymphocytes % (Manual) Monocytes % (Manual) Seg Neutrophils # Seg Neutrophils # Man Lymphocytes # (Manual) Monocytes # (Manual) Eosinophils # (Manual) Basophils # (Manual) PT INR APTT ABG pH ABG pO2 78.3 L ABG HCO3 33.8 H ABG O2 Saturation 94.9 L ABG Base Excess 7.9 H ABG Hemoglobin 11.5 L Oxyhemoglobin 92.3 L Sodium Potassium Chloride Carbon Dioxide BUN Creatinine Glucose POC Glucose 111 H 115 H Lactic Acid Calcium Ionized Calcium Phosphorus Magnesium Total Bilirubin AST ALT Alkaline Phosphatase Ammonia Total Creatine Kinase CK-MB (CK-2) CK-MB (CK-2) Rel Index Total Protein Albumin Urine WBC (Auto) Vancomycin Trough Salicylates Acetaminophen Plasma/Serum Alcohol Crossmatch 12/02/19 12/03/19 12/04/19 12:55 20:00 04:26 WBC 15.2 H RBC 2.69 L Hgb 7.4 L Hct 23.6 L MCH 27 L RDW 19.9 H Plt Count 838 H Lymph % (Auto) [place] % (Auto) [place] # Baso # Seg Neutrophils % Seg Neuts % (Manual) Lymphocytes % (Manual) Monocytes % (Manual) Seg Neutrophils # Seg Neutrophils # Man Lymphocytes # (Manual) Monocytes # (Manual) Eosinophils # (Manual) Basophils # (Manual) PT INR APTT ABG pH ABG pO2 68.3 L ABG HCO3 33.5 H ABG O2 Saturation 93.5 L ABG Base Excess 8.4 H ABG Hemoglobin 7.3 L Oxyhemoglobin 90.9 L Sodium Potassium Chloride Carbon Dioxide BUN Creatinine Glucose POC Glucose 107 H Lactic Acid Calcium Ionized Calcium Phosphorus Magnesium Total Bilirubin AST ALT Alkaline Phosphatase Ammonia Total Creatine Kinase CK-MB (CK-2) CK-MB (CK-2) Rel Index Total Protein Albumin Urine WBC (Auto) Vancomycin Trough Salicylates Acetaminophen Plasma/Serum Alcohol Crossmatch 12/04/19 12/04/19 12/04/19 04:26 07:45 12:02 WBC 15.9 H RBC 2.88 L Hgb 7.9 L Hct 25.1 L MCH RDW 20.4 H Plt Count 839 H Lymph % (Auto) 11.3 L [place] % (Auto) 15.2 H [place] # 2.4 H Baso # Seg Neutrophils % 72.4 H Seg Neuts % (Manual) Lymphocytes % (Manual) Monocytes % (Manual) Seg Neutrophils # 11.5 H Seg Neutrophils # Man Lymphocytes # (Manual) Monocytes # (Manual) Eosinophils # (Manual) Basophils # (Manual) PT INR APTT ABG pH ABG pO2 ABG HCO3 ABG O2 Saturation ABG Base Excess ABG Hemoglobin Oxyhemoglobin Sodium Potassium Chloride 96.5 L Carbon Dioxide BUN 21 H Creatinine 0.6 L Glucose 107 H POC Glucose 138 H Lactic Acid Calcium Ionized Calcium Phosphorus Magnesium Total Bilirubin AST ALT Alkaline Phosphatase Ammonia Total Creatine Kinase CK-MB (CK-2) CK-MB (CK-2) Rel Index Total Protein Albumin Urine WBC (Auto) Vancomycin Trough Salicylates Acetaminophen Plasma/Serum Alcohol Crossmatch 12/04/19 12/05/19 12/05/19 18:16 11:55 18:36 WBC RBC Hgb Hct MCH RDW Plt Count Lymph % (Auto) [place] % (Auto) [place] # Baso # Seg Neutrophils % Seg Neuts % (Manual) Lymphocytes % (Manual) Monocytes % (Manual) Seg Neutrophils # Seg Neutrophils # Man Lymphocytes # (Manual) Monocytes # (Manual) Eosinophils # (Manual) Basophils # (Manual) PT INR APTT ABG pH ABG pO2 ABG HCO3 ABG O2 Saturation ABG Base Excess ABG Hemoglobin Oxyhemoglobin Sodium Potassium Chloride Carbon Dioxide BUN Creatinine Glucose POC Glucose 135 H 125 H 135 H Lactic Acid Calcium Ionized Calcium Phosphorus Magnesium Total Bilirubin AST ALT Alkaline Phosphatase Ammonia Total Creatine Kinase CK-MB (CK-2) CK-MB (CK-2) Rel Index Total Protein Albumin Urine WBC (Auto) Vancomycin Trough Salicylates Acetaminophen Plasma/Serum Alcohol Crossmatch 12/05/19 12/06/19 12/06/19 23:30 04:14 05:43 WBC RBC Hgb Hct MCH RDW Plt Count Lymph % (Auto) [place] % (Auto) [place] # Baso # Seg Neutrophils % Seg Neuts % (Manual) Lymphocytes % (Manual) Monocytes % (Manual) Seg Neutrophils # Seg Neutrophils # Man Lymphocytes # (Manual) Monocytes # (Manual) Eosinophils # (Manual) Basophils # (Manual) PT INR APTT ABG pH ABG pO2 ABG HCO3 ABG O2 Saturation ABG Base Excess ABG Hemoglobin Oxyhemoglobin Sodium Potassium 5.6 H Chloride 95.0 L Carbon Dioxide BUN 48 H Creatinine 1.3 H D Glucose POC Glucose 126 H 121 H Lactic Acid Calcium Ionized Calcium Phosphorus Magnesium Total Bilirubin AST 89 H ALT 98 H Alkaline Phosphatase 476 H Ammonia Total Creatine Kinase CK-MB (CK-2) CK-MB (CK-2) Rel Index Total Protein Albumin 2.8 L Urine WBC (Auto) Vancomycin Trough Salicylates Acetaminophen Plasma/Serum Alcohol Crossmatch 12/06/19 12/06/19 12/07/19 10:39 14:34 00:19 WBC 17.3 H RBC 2.60 L Hgb 7.1 L Hct 22.7 L MCH 27 L RDW 20.1 H Plt Count 832 H Lymph % (Auto) [place] % (Auto) [place] # Baso # Seg Neutrophils % Seg Neuts % (Manual) Lymphocytes % (Manual) Monocytes % (Manual) Seg Neutrophils # Seg Neutrophils # Man Lymphocytes # (Manual) Monocytes # (Manual) Eosinophils # (Manual) Basophils # (Manual) PT INR APTT ABG pH ABG pO2 ABG HCO3 ABG O2 Saturation ABG Base Excess ABG Hemoglobin Oxyhemoglobin Sodium Potassium Chloride Carbon Dioxide BUN Creatinine Glucose POC Glucose 128 H 136 H Lactic Acid Calcium Ionized Calcium Phosphorus Magnesium Total Bilirubin AST ALT Alkaline Phosphatase Ammonia Total Creatine Kinase CK-MB (CK-2) CK-MB (CK-2) Rel Index Total Protein Albumin Urine WBC (Auto) Vancomycin Trough Salicylates Acetaminophen Plasma/Serum Alcohol Crossmatch 12/07/19 12/07/19 12/07/19 03:44 03:44 05:53 WBC 16.2 H RBC 2.56 L Hgb 7.1 L Hct 22.3 L MCH RDW 19.4 H Plt Count 782 H Lymph % (Auto) [place] % (Auto) [place] # Baso # Seg Neutrophils % Seg Neuts % (Manual) Lymphocytes % (Manual) Monocytes % (Manual) Seg Neutrophils # Seg Neutrophils # Man Lymphocytes # (Manual) Monocytes # (Manual) Eosinophils # (Manual) Basophils # (Manual) PT INR APTT ABG pH ABG pO2 ABG HCO3 ABG O2 Saturation ABG Base Excess ABG Hemoglobin Oxyhemoglobin Sodium Potassium Chloride 95.6 L Carbon Dioxide BUN 56 H Creatinine 1.4 H Glucose 120 H POC Glucose 128 H Lactic Acid Calcium 10.3 H Ionized Calcium Phosphorus Magnesium Total Bilirubin AST ALT Alkaline Phosphatase Ammonia Total Creatine Kinase CK-MB (CK-2) CK-MB (CK-2) Rel Index Total Protein Albumin Urine WBC (Auto) Vancomycin Trough Salicylates Acetaminophen Plasma/Serum Alcohol Crossmatch 12/07/19 12/07/19 12/08/19 12:54 23:47 00:20 WBC RBC Hgb Hct MCH RDW Plt Count Lymph % (Auto) [place] % (Auto) [place] # Baso # Seg Neutrophils % Seg Neuts % (Manual) Lymphocytes % (Manual) Monocytes % (Manual) Seg Neutrophils # Seg Neutrophils # Man Lymphocytes # (Manual) Monocytes # (Manual) Eosinophils # (Manual) Basophils # (Manual) PT INR APTT ABG pH ABG pO2 ABG HCO3 ABG O2 Saturation ABG Base Excess ABG Hemoglobin Oxyhemoglobin Sodium Potassium Chloride Carbon Dioxide BUN Creatinine Glucose POC Glucose 128 H 130 H 124 H Lactic Acid Calcium Ionized Calcium Phosphorus Magnesium Total Bilirubin AST ALT Alkaline Phosphatase Ammonia Total Creatine Kinase CK-MB (CK-2) CK-MB (CK-2) Rel Index Total Protein Albumin Urine WBC (Auto) Vancomycin Trough Salicylates Acetaminophen Plasma/Serum Alcohol Crossmatch 12/08/19 12/08/19 12/08/19 06:38 12:04 18:26 WBC RBC Hgb Hct MCH RDW Plt Count Lymph % (Auto) [place] % (Auto) [place] # Baso # Seg Neutrophils % Seg Neuts % (Manual) Lymphocytes % (Manual) Monocytes % (Manual) Seg Neutrophils # Seg Neutrophils # Man Lymphocytes # (Manual) Monocytes # (Manual) Eosinophils # (Manual) Basophils # (Manual) PT INR APTT ABG pH ABG pO2 ABG HCO3 ABG O2 Saturation ABG Base Excess ABG Hemoglobin Oxyhemoglobin Sodium Potassium Chloride Carbon Dioxide BUN Creatinine Glucose POC Glucose 137 H 129 H 150 H Lactic Acid Calcium Ionized Calcium Phosphorus Magnesium Total Bilirubin AST ALT Alkaline Phosphatase Ammonia Total Creatine Kinase CK-MB (CK-2) CK-MB (CK-2) Rel Index Total Protein Albumin Urine WBC (Auto) Vancomycin Trough Salicylates Acetaminophen Plasma/Serum Alcohol Crossmatch 12/09/19 12/09/19 12/09/19 00:56 05:34 06:13 WBC RBC Hgb Hct MCH RDW Plt Count Lymph % (Auto) [place] % (Auto) [place] # Baso # Seg Neutrophils % Seg Neuts % (Manual) Lymphocytes % (Manual) Monocytes % (Manual) Seg Neutrophils # Seg Neutrophils # Man Lymphocytes # (Manual) Monocytes # (Manual) Eosinophils # (Manual) Basophils # (Manual) PT INR APTT ABG pH ABG pO2 ABG HCO3 ABG O2 Saturation ABG Base Excess ABG Hemoglobin Oxyhemoglobin Sodium 146 H Potassium Chloride Carbon Dioxide BUN 66 H Creatinine 1.9 H Glucose 116 H POC Glucose 130 H 130 H Lactic Acid Calcium Ionized Calcium Phosphorus Magnesium Total Bilirubin AST ALT Alkaline Phosphatase Ammonia Total Creatine Kinase CK-MB (CK-2) CK-MB (CK-2) Rel Index Total Protein Albumin Urine WBC (Auto) Vancomycin Trough Salicylates Acetaminophen Plasma/Serum Alcohol Crossmatch 12/09/19 12/09/19 12/10/19 11:52 17:50 00:14 WBC RBC Hgb Hct MCH RDW Plt Count Lymph % (Auto) [place] % (Auto) [place] # Baso # Seg Neutrophils % Seg Neuts % (Manual) Lymphocytes % (Manual) Monocytes % (Manual) Seg Neutrophils # Seg Neutrophils # Man Lymphocytes # (Manual) Monocytes # (Manual) Eosinophils # (Manual) Basophils # (Manual) PT INR APTT ABG pH ABG pO2 ABG HCO3 ABG O2 Saturation ABG Base Excess ABG Hemoglobin Oxyhemoglobin Sodium Potassium Chloride Carbon Dioxide BUN Creatinine Glucose POC Glucose 135 H 120 H 116 H Lactic Acid Calcium Ionized Calcium Phosphorus Magnesium Total Bilirubin AST ALT Alkaline Phosphatase Ammonia Total Creatine Kinase CK-MB (CK-2) CK-MB (CK-2) Rel Index Total Protein Albumin Urine WBC (Auto) Vancomycin Trough Salicylates Acetaminophen Plasma/Serum Alcohol Crossmatch 12/10/19 12/10/19 12/10/19 05:38 11:38 17:34 WBC RBC Hgb Hct MCH RDW Plt Count Lymph % (Auto) [place] % (Auto) [place] # Baso # Seg Neutrophils % Seg Neuts % (Manual) Lymphocytes % (Manual) Monocytes % (Manual) Seg Neutrophils # Seg Neutrophils # Man Lymphocytes # (Manual) Monocytes # (Manual) Eosinophils # (Manual) Basophils # (Manual) PT INR APTT ABG pH ABG pO2 ABG HCO3 ABG O2 Saturation ABG Base Excess ABG Hemoglobin Oxyhemoglobin Sodium Potassium Chloride Carbon Dioxide BUN Creatinine Glucose POC Glucose 115 H 112 H 130 H Lactic Acid Calcium Ionized Calcium Phosphorus Magnesium Total Bilirubin AST ALT Alkaline Phosphatase Ammonia Total Creatine Kinase CK-MB (CK-2) CK-MB (CK-2) Rel Index Total Protein Albumin Urine WBC (Auto) Vancomycin Trough Salicylates Acetaminophen Plasma/Serum Alcohol Crossmatch 12/11/19 12/11/19 12/11/19 00:20 05:31 12:22 WBC RBC Hgb Hct MCH RDW Plt Count Lymph % (Auto) [place] % (Auto) [place] # Baso # Seg Neutrophils % Seg Neuts % (Manual) Lymphocytes % (Manual) Monocytes % (Manual) Seg Neutrophils # Seg Neutrophils # Man Lymphocytes # (Manual) Monocytes # (Manual) Eosinophils # (Manual) Basophils # (Manual) PT INR APTT ABG pH ABG pO2 ABG HCO3 ABG O2 Saturation ABG Base Excess ABG Hemoglobin Oxyhemoglobin Sodium Potassium Chloride Carbon Dioxide BUN Creatinine Glucose POC Glucose 124 H 132 H 128 H Lactic Acid Calcium Ionized Calcium Phosphorus Magnesium Total Bilirubin AST ALT Alkaline Phosphatase Ammonia Total Creatine Kinase CK-MB (CK-2) CK-MB (CK-2) Rel Index Total Protein Albumin Urine WBC (Auto) Vancomycin Trough Salicylates Acetaminophen Plasma/Serum Alcohol Crossmatch 12/11/19 12/11/19 12/12/19 18:04 23:42 03:51 WBC RBC Hgb Hct MCH RDW Plt Count Lymph % (Auto) [place] % (Auto) [place] # Baso # Seg Neutrophils % Seg Neuts % (Manual) Lymphocytes % (Manual) Monocytes % (Manual) Seg Neutrophils # Seg Neutrophils # Man Lymphocytes # (Manual) Monocytes # (Manual) Eosinophils # (Manual) Basophils # (Manual) PT INR APTT ABG pH ABG pO2 ABG HCO3 ABG O2 Saturation ABG Base Excess ABG Hemoglobin Oxyhemoglobin Sodium 149 H Potassium Chloride Carbon Dioxide 20 L D BUN 77 H Creatinine 2.8 H Glucose POC Glucose 133 H 154 H Lactic Acid Calcium Ionized Calcium Phosphorus Magnesium Total Bilirubin AST ALT Alkaline Phosphatase Ammonia Total Creatine Kinase CK-MB (CK-2) CK-MB (CK-2) Rel Index Total Protein Albumin Urine WBC (Auto) Vancomycin Trough Salicylates Acetaminophen Plasma/Serum Alcohol Crossmatch 12/12/19 12/12/19 12/12/19 05:18 05:26 10:30 WBC 18.0 H RBC 2.51 L Hgb 6.8 L Hct 22.0 L MCH 27 L RDW 19.9 H Plt Count 582 H Lymph % (Auto) [place] % (Auto) [place] # Baso # Seg Neutrophils % Seg Neuts % (Manual) Lymphocytes % (Manual) Monocytes % (Manual) Seg Neutrophils # Seg Neutrophils # Man Lymphocytes # (Manual) Monocytes # (Manual) Eosinophils # (Manual) Basophils # (Manual) PT INR APTT ABG pH ABG pO2 ABG HCO3 ABG O2 Saturation ABG Base Excess ABG Hemoglobin Oxyhemoglobin Sodium Potassium Chloride Carbon Dioxide BUN Creatinine Glucose POC Glucose 135 H Lactic Acid Calcium Ionized Calcium Phosphorus Magnesium Total Bilirubin AST ALT Alkaline Phosphatase Ammonia Total Creatine Kinase CK-MB (CK-2) CK-MB (CK-2) Rel Index Total Protein Albumin Urine WBC (Auto) Vancomycin Trough Salicylates Acetaminophen Plasma/Serum Alcohol Crossmatch See Detail 12/12/19 12/12/19 12/12/19 11:44 18:10 23:21 WBC RBC Hgb Hct MCH RDW Plt Count Lymph % (Auto) [place] % (Auto) [place] # Baso # Seg Neutrophils % Seg Neuts % (Manual) Lymphocytes % (Manual) Monocytes % (Manual) Seg Neutrophils # Seg Neutrophils # Man Lymphocytes # (Manual) Monocytes # (Manual) Eosinophils # (Manual) Basophils # (Manual) PT INR APTT ABG pH ABG pO2 ABG HCO3 ABG O2 Saturation ABG Base Excess ABG Hemoglobin Oxyhemoglobin Sodium Potassium Chloride Carbon Dioxide BUN Creatinine Glucose POC Glucose 108 H 107 H 126 H Lactic Acid Calcium Ionized Calcium Phosphorus Magnesium Total Bilirubin AST ALT Alkaline Phosphatase Ammonia Total Creatine Kinase CK-MB (CK-2) CK-MB (CK-2) Rel Index Total Protein Albumin Urine WBC (Auto) Vancomycin Trough Salicylates Acetaminophen Plasma/Serum Alcohol Crossmatch 12/13/19 12/13/19 12/13/19 05:41 07:48 07:48 WBC 38.3 H RBC 2.37 L Hgb 6.3 L Hct 20.9 L MCH 27 L RDW 20.2 H Plt Count 546 H Lymph % (Auto) [place] % (Auto) [place] # Baso # Seg Neutrophils % Seg Neuts % (Manual) 93.0 H Lymphocytes % (Manual) 1.0 L Monocytes % (Manual) Seg Neutrophils # Seg Neutrophils # Man 35.6 H Lymphocytes # (Manual) 0.4 L Monocytes # (Manual) Eosinophils # (Manual) Basophils # (Manual) 0.4 H PT INR APTT ABG pH ABG pO2 ABG HCO3 ABG O2 Saturation ABG Base Excess ABG Hemoglobin Oxyhemoglobin Sodium 152 H Potassium 3.1 L D Chloride 111.9 H Carbon Dioxide 21 L BUN 53 H Creatinine 1.9 H Glucose 141 H POC Glucose 128 H Lactic Acid Calcium Ionized Calcium Phosphorus Magnesium Total Bilirubin AST ALT Alkaline Phosphatase 316 H Ammonia Total Creatine Kinase CK-MB (CK-2) CK-MB (CK-2) Rel Index Total Protein Albumin 2.4 L Urine WBC (Auto) Vancomycin Trough Salicylates Acetaminophen Plasma/Serum Alcohol Crossmatch 12/13/19 12/13/19 12/14/19 18:17 23:19 05:36 WBC RBC Hgb Hct MCH RDW Plt Count Lymph % (Auto) [place] % (Auto) [place] # Baso # Seg Neutrophils % Seg Neuts % (Manual) Lymphocytes % (Manual) Monocytes % (Manual) Seg Neutrophils # Seg Neutrophils # Man Lymphocytes # (Manual) Monocytes # (Manual) Eosinophils # (Manual) Basophils # (Manual) PT INR APTT ABG pH ABG pO2 ABG HCO3 ABG O2 Saturation ABG Base Excess ABG Hemoglobin Oxyhemoglobin Sodium Potassium Chloride Carbon Dioxide BUN Creatinine Glucose POC Glucose 141 H 158 H 182 H Lactic Acid Calcium Ionized Calcium Phosphorus Magnesium Total Bilirubin AST ALT Alkaline Phosphatase Ammonia Total Creatine Kinase CK-MB (CK-2) CK-MB (CK-2) Rel Index Total Protein Albumin Urine WBC (Auto) Vancomycin Trough Salicylates Acetaminophen Plasma/Serum Alcohol Crossmatch 12/14/19 12/14/19 12/14/19 08:48 08:48 10:31 WBC 33.3 H RBC 2.70 L Hgb 7.9 L 8.0 L Hct 25.3 L 24.0 L MCH RDW 19.2 H Plt Count 476 H Lymph % (Auto) [place] % (Auto) [place] # Baso # Seg Neutrophils % Seg Neuts % (Manual) Lymphocytes % (Manual) Monocytes % (Manual) Seg Neutrophils # Seg Neutrophils # Man Lymphocytes # (Manual) Monocytes # (Manual) Eosinophils # (Manual) Basophils # (Manual) PT INR APTT ABG pH ABG pO2 ABG HCO3 ABG O2 Saturation ABG Base Excess ABG Hemoglobin Oxyhemoglobin Sodium 153 H Potassium 2.5 L* Chloride 114.9 H Carbon Dioxide 20 L BUN 38 H Creatinine 1.4 H Glucose 177 H POC Glucose Lactic Acid Calcium Ionized Calcium Phosphorus Magnesium Total Bilirubin AST ALT Alkaline Phosphatase Ammonia Total Creatine Kinase CK-MB (CK-2) CK-MB (CK-2) Rel Index Total Protein Albumin Urine WBC (Auto) Vancomycin Trough Salicylates Acetaminophen Plasma/Serum Alcohol Crossmatch 12/14/19 12/14/19 12/14/19 12:57 16:15 17:50 WBC RBC Hgb Hct MCH RDW Plt Count Lymph % (Auto) [place] % (Auto) [place] # Baso # Seg Neutrophils % Seg Neuts % (Manual) Lymphocytes % (Manual) Monocytes % (Manual) Seg Neutrophils # Seg Neutrophils # Man Lymphocytes # (Manual) Monocytes # (Manual) Eosinophils # (Manual) Basophils # (Manual) PT INR APTT ABG pH ABG pO2 73.6 L ABG HCO3 ABG O2 Saturation ABG Base Excess ABG Hemoglobin 7.6 L Oxyhemoglobin 94.0 L Sodium Potassium Chloride Carbon Dioxide BUN Creatinine Glucose POC Glucose 174 H 150 H Lactic Acid Calcium Ionized Calcium Phosphorus Magnesium Total Bilirubin AST ALT Alkaline Phosphatase Ammonia Total Creatine Kinase CK-MB (CK-2) CK-MB (CK-2) Rel Index Total Protein Albumin Urine WBC (Auto) Vancomycin Trough Salicylates Acetaminophen Plasma/Serum Alcohol Crossmatch 12/15/19 12/15/19 12/15/19 00:28 05:27 07:23 WBC 30.0 H RBC 3.11 L Hgb 8.6 L Hct 27.7 L MCH RDW 20.0 H Plt Count 473 H Lymph % (Auto) [place] % (Auto) [place] # Baso # Seg Neutrophils % Seg Neuts % (Manual) Lymphocytes % (Manual) Monocytes % (Manual) Seg Neutrophils # Seg Neutrophils # Man Lymphocytes # (Manual) Monocytes # (Manual) Eosinophils # (Manual) Basophils # (Manual) PT INR APTT ABG pH ABG pO2 ABG HCO3 ABG O2 Saturation ABG Base Excess ABG Hemoglobin Oxyhemoglobin Sodium Potassium Chloride Carbon Dioxide BUN Creatinine Glucose POC Glucose 167 H 148 H Lactic Acid Calcium Ionized Calcium Phosphorus Magnesium Total Bilirubin AST ALT Alkaline Phosphatase Ammonia Total Creatine Kinase CK-MB (CK-2) CK-MB (CK-2) Rel Index Total Protein Albumin Urine WBC (Auto) Vancomycin Trough Salicylates Acetaminophen Plasma/Serum Alcohol Crossmatch 12/15/19 12/15/19 12/15/19 07:23 12:21 17:41 WBC RBC Hgb Hct MCH RDW Plt Count Lymph % (Auto) [place] % (Auto) [place] # Baso # Seg Neutrophils % Seg Neuts % (Manual) Lymphocytes % (Manual) Monocytes % (Manual) Seg Neutrophils # Seg Neutrophils # Man Lymphocytes # (Manual) Monocytes # (Manual) Eosinophils # (Manual) Basophils # (Manual) PT INR APTT ABG pH ABG pO2 ABG HCO3 ABG O2 Saturation ABG Base Excess ABG Hemoglobin Oxyhemoglobin Sodium 147 H Potassium 3.5 L D Chloride 111.2 H Carbon Dioxide 19 L BUN 29 H Creatinine Glucose 126 H POC Glucose 154 H 144 H Lactic Acid Calcium Ionized Calcium Phosphorus Magnesium Total Bilirubin AST ALT Alkaline Phosphatase Ammonia Total Creatine Kinase CK-MB (CK-2) CK-MB (CK-2) Rel Index Total Protein Albumin Urine WBC (Auto) Vancomycin Trough Salicylates Acetaminophen Plasma/Serum Alcohol Crossmatch 12/16/19 12/16/19 12/16/19 00:22 05:30 05:44 WBC 30.8 H RBC 2.58 L Hgb 7.1 L Hct 22.7 L MCH RDW 19.6 H Plt Count 451 H Lymph % (Auto) [place] % (Auto) [place] # Baso # Seg Neutrophils % Seg Neuts % (Manual) Lymphocytes % (Manual) Monocytes % (Manual) Seg Neutrophils # Seg Neutrophils # Man Lymphocytes # (Manual) Monocytes # (Manual) Eosinophils # (Manual) Basophils # (Manual) PT INR APTT ABG pH ABG pO2 ABG HCO3 ABG O2 Saturation ABG Base Excess ABG Hemoglobin Oxyhemoglobin Sodium Potassium Chloride Carbon Dioxide BUN Creatinine Glucose POC Glucose 139 H 126 H Lactic Acid Calcium Ionized Calcium Phosphorus Magnesium Total Bilirubin AST ALT Alkaline Phosphatase Ammonia Total Creatine Kinase CK-MB (CK-2) CK-MB (CK-2) Rel Index Total Protein Albumin Urine WBC (Auto) Vancomycin Trough Salicylates Acetaminophen Plasma/Serum Alcohol Crossmatch 12/16/19 12/16/19 12/16/19 05:44 11:48 17:37 WBC RBC Hgb Hct MCH RDW Plt Count Lymph % (Auto) [place] % (Auto) [place] # Baso # Seg Neutrophils % Seg Neuts % (Manual) Lymphocytes % (Manual) Monocytes % (Manual) Seg Neutrophils # Seg Neutrophils # Man Lymphocytes # (Manual) Monocytes # (Manual) Eosinophils # (Manual) Basophils # (Manual) PT INR APTT ABG pH ABG pO2 ABG HCO3 ABG O2 Saturation ABG Base Excess ABG Hemoglobin Oxyhemoglobin Sodium Potassium 3.4 L Chloride 109.2 H Carbon Dioxide 19 L BUN 27 H Creatinine Glucose 124 H POC Glucose 125 H 148 H Lactic Acid Calcium Ionized Calcium Phosphorus Magnesium Total Bilirubin AST ALT Alkaline Phosphatase Ammonia Total Creatine Kinase CK-MB (CK-2) CK-MB (CK-2) Rel Index Total Protein Albumin Urine WBC (Auto) Vancomycin Trough Salicylates Acetaminophen Plasma/Serum Alcohol Crossmatch 12/16/19 12/17/19 12/17/19 23:43 05:28 12:47 WBC RBC Hgb Hct MCH RDW Plt Count Lymph % (Auto) [place] % (Auto) [place] # Baso # Seg Neutrophils % Seg Neuts % (Manual) Lymphocytes % (Manual) Monocytes % (Manual) Seg Neutrophils # Seg Neutrophils # Man Lymphocytes # (Manual) Monocytes # (Manual) Eosinophils # (Manual) Basophils # (Manual) PT INR APTT ABG pH ABG pO2 ABG HCO3 ABG O2 Saturation ABG Base Excess ABG Hemoglobin Oxyhemoglobin Sodium Potassium Chloride Carbon Dioxide BUN Creatinine Glucose POC Glucose 142 H 140 H 125 H Lactic Acid Calcium Ionized Calcium Phosphorus Magnesium Total Bilirubin AST ALT Alkaline Phosphatase Ammonia Total Creatine Kinase CK-MB (CK-2) CK-MB (CK-2) Rel Index Total Protein Albumin Urine WBC (Auto) Vancomycin Trough Salicylates Acetaminophen Plasma/Serum Alcohol Crossmatch 12/17/19 12/17/19 12/17/19 17:05 18:00 Unknown WBC RBC Hgb Hct MCH RDW Plt Count Lymph % (Auto) [place] % (Auto) [place] # Baso # Seg Neutrophils % Seg Neuts % (Manual) Lymphocytes % (Manual) Monocytes % (Manual) Seg Neutrophils # Seg Neutrophils # Man Lymphocytes # (Manual) Monocytes # (Manual) Eosinophils # (Manual) Basophils # (Manual) PT INR APTT ABG pH ABG pO2 68.1 L ABG HCO3 ABG O2 Saturation 93.7 L ABG Base Excess ABG Hemoglobin 5.0 L Oxyhemoglobin 91.7 L Sodium Potassium Chloride Carbon Dioxide BUN Creatinine Glucose POC Glucose 140 H Lactic Acid Calcium Ionized Calcium Phosphorus Magnesium Total Bilirubin AST ALT Alkaline Phosphatase Ammonia Total Creatine Kinase CK-MB (CK-2) CK-MB (CK-2) Rel Index Total Protein Albumin Urine WBC (Auto) Vancomycin Trough Salicylates Acetaminophen Plasma/Serum Alcohol Crossmatch 12/18/19 12/18/19 12/18/19 00:16 04:53 04:53 WBC 28.6 H RBC 2.27 L Hgb 6.3 L Hct 19.5 L* MCH RDW 20.0 H Plt Count 497 H Lymph % (Auto) [place] % (Auto) [place] # Baso # Seg Neutrophils % Seg Neuts % (Manual) Lymphocytes % (Manual) Monocytes % (Manual) Seg Neutrophils # Seg Neutrophils # Man Lymphocytes # (Manual) Monocytes # (Manual) Eosinophils # (Manual) Basophils # (Manual) PT INR APTT ABG pH ABG pO2 ABG HCO3 ABG O2 Saturation ABG Base Excess ABG Hemoglobin Oxyhemoglobin Sodium Potassium Chloride 107.9 H Carbon Dioxide 20 L BUN 27 H Creatinine 0.6 L Glucose 116 H POC Glucose 123 H Lactic Acid Calcium Ionized Calcium Phosphorus Magnesium Total Bilirubin AST ALT Alkaline Phosphatase Ammonia Total Creatine Kinase CK-MB (CK-2) CK-MB (CK-2) Rel Index Total Protein Albumin Urine WBC (Auto) Vancomycin Trough Salicylates Acetaminophen Plasma/Serum Alcohol Crossmatch 12/18/19 12/18/19 12/18/19 06:38 11:22 12:08 WBC RBC Hgb Hct MCH RDW Plt Count Lymph % (Auto) [place] % (Auto) [place] # Baso # Seg Neutrophils % Seg Neuts % (Manual) Lymphocytes % (Manual) Monocytes % (Manual) Seg Neutrophils # Seg Neutrophils # Man Lymphocytes # (Manual) Monocytes # (Manual) Eosinophils # (Manual) Basophils # (Manual) PT INR APTT ABG pH ABG pO2 ABG HCO3 ABG O2 Saturation ABG Base Excess ABG Hemoglobin Oxyhemoglobin Sodium Potassium Chloride Carbon Dioxide BUN Creatinine Glucose POC Glucose 120 H 127 H Lactic Acid Calcium Ionized Calcium Phosphorus Magnesium Total Bilirubin AST ALT Alkaline Phosphatase Ammonia Total Creatine Kinase CK-MB (CK-2) CK-MB (CK-2) Rel Index Total Protein Albumin Urine WBC (Auto) Vancomycin Trough Salicylates Acetaminophen Plasma/Serum Alcohol Crossmatch See Detail 12/18/19 12/18/19 12/18/19 14:05 17:49 23:53 WBC RBC Hgb Hct MCH RDW Plt Count Lymph % (Auto) [place] % (Auto) [place] # Baso # Seg Neutrophils % Seg Neuts % (Manual) Lymphocytes % (Manual) Monocytes % (Manual) Seg Neutrophils # Seg Neutrophils # Man Lymphocytes # (Manual) Monocytes # (Manual) Eosinophils # (Manual) Basophils # (Manual) PT INR APTT ABG pH 7.267 L ABG pO2 69.8 L ABG HCO3 ABG O2 Saturation 88.4 L ABG Base Excess ABG Hemoglobin 7.1 L Oxyhemoglobin 86.4 L Sodium Potassium Chloride Carbon Dioxide BUN Creatinine Glucose POC Glucose 157 H 128 H Lactic Acid Calcium Ionized Calcium Phosphorus Magnesium Total Bilirubin AST ALT Alkaline Phosphatase Ammonia Total Creatine Kinase CK-MB (CK-2) CK-MB (CK-2) Rel Index Total Protein Albumin Urine WBC (Auto) Vancomycin Trough Salicylates Acetaminophen Plasma/Serum Alcohol Crossmatch 12/19/19 12/19/19 12/19/19 03:37 03:37 05:25 WBC 31.3 H RBC 2.60 L Hgb 7.6 L Hct 23.0 L MCH RDW 19.4 H Plt Count 530 H Lymph % (Auto) [place] % (Auto) [place] # Baso # Seg Neutrophils % Seg Neuts % (Manual) Lymphocytes % (Manual) Monocytes % (Manual) Seg Neutrophils # Seg Neutrophils # Man Lymphocytes # (Manual) Monocytes # (Manual) Eosinophils # (Manual) Basophils # (Manual) PT INR APTT ABG pH ABG pO2 ABG HCO3 ABG O2 Saturation ABG Base Excess ABG Hemoglobin Oxyhemoglobin Sodium Potassium Chloride Carbon Dioxide 18 L BUN 36 H Creatinine Glucose 111 H POC Glucose 123 H Lactic Acid Calcium Ionized Calcium Phosphorus Magnesium Total Bilirubin AST ALT Alkaline Phosphatase Ammonia Total Creatine Kinase CK-MB (CK-2) CK-MB (CK-2) Rel Index Total Protein Albumin Urine WBC (Auto) Vancomycin Trough Salicylates Acetaminophen Plasma/Serum Alcohol Crossmatch 12/19/19 12/19/19 12/20/19 12:59 18:33 00:00 WBC RBC Hgb Hct MCH RDW Plt Count Lymph % (Auto) [place] % (Auto) [place] # Baso # Seg Neutrophils % Seg Neuts % (Manual) Lymphocytes % (Manual) Monocytes % (Manual) Seg Neutrophils # Seg Neutrophils # Man Lymphocytes # (Manual) Monocytes # (Manual) Eosinophils # (Manual) Basophils # (Manual) PT INR APTT ABG pH ABG pO2 ABG HCO3 ABG O2 Saturation ABG Base Excess ABG Hemoglobin Oxyhemoglobin Sodium Potassium Chloride Carbon Dioxide BUN Creatinine Glucose POC Glucose 130 H 118 H 135 H Lactic Acid Calcium Ionized Calcium Phosphorus Magnesium Total Bilirubin AST ALT Alkaline Phosphatase Ammonia Total Creatine Kinase CK-MB (CK-2) CK-MB (CK-2) Rel Index Total Protein Albumin Urine WBC (Auto) Vancomycin Trough Salicylates Acetaminophen Plasma/Serum Alcohol Crossmatch 12/20/19 12/20/19 12/20/19 05:46 12:31 18:07 WBC RBC Hgb Hct MCH RDW Plt Count Lymph % (Auto) [place] % (Auto) [place] # Baso # Seg Neutrophils % Seg Neuts % (Manual) Lymphocytes % (Manual) Monocytes % (Manual) Seg Neutrophils # Seg Neutrophils # Man Lymphocytes # (Manual) Monocytes # (Manual) Eosinophils # (Manual) Basophils # (Manual) PT INR APTT ABG pH ABG pO2 ABG HCO3 ABG O2 Saturation ABG Base Excess ABG Hemoglobin Oxyhemoglobin Sodium Potassium Chloride Carbon Dioxide BUN Creatinine Glucose POC Glucose 131 H 128 H 134 H Lactic Acid Calcium Ionized Calcium Phosphorus Magnesium Total Bilirubin AST ALT Alkaline Phosphatase Ammonia Total Creatine Kinase CK-MB (CK-2) CK-MB (CK-2) Rel Index Total Protein Albumin Urine WBC (Auto) Vancomycin Trough Salicylates Acetaminophen Plasma/Serum Alcohol Crossmatch 12/21/19 12/21/19 12/21/19 03:28 03:28 07:21 WBC 29.4 H RBC 2.30 L Hgb 6.8 L Hct 20.2 L MCH RDW 20.2 H Plt Count 746 H Lymph % (Auto) [place] % (Auto) [place] # Baso # Seg Neutrophils % Seg Neuts % (Manual) 85.0 H Lymphocytes % (Manual) 8.0 L Monocytes % (Manual) Seg Neutrophils # Seg Neutrophils # Man 25.0 H Lymphocytes # (Manual) Monocytes # (Manual) 1.5 H Eosinophils # (Manual) 0.6 H Basophils # (Manual) PT INR APTT ABG pH ABG pO2 ABG HCO3 ABG O2 Saturation ABG Base Excess ABG Hemoglobin Oxyhemoglobin Sodium Potassium Chloride Carbon Dioxide 17 L BUN 57 H Creatinine 1.4 H D Glucose POC Glucose 124 H Lactic Acid Calcium Ionized Calcium Phosphorus Magnesium Total Bilirubin AST ALT Alkaline Phosphatase Ammonia Total Creatine Kinase CK-MB (CK-2) CK-MB (CK-2) Rel Index Total Protein Albumin Urine WBC (Auto) Vancomycin Trough Salicylates Acetaminophen Plasma/Serum Alcohol Crossmatch 12/21/19 12/21/19 12/21/19 08:56 12:06 14:53 WBC RBC Hgb 7.2 L Hct 22.9 L MCH RDW Plt Count Lymph % (Auto) [place] % (Auto) [place] # Baso # Seg Neutrophils % Seg Neuts % (Manual) Lymphocytes % (Manual) Monocytes % (Manual) Seg Neutrophils # Seg Neutrophils # Man Lymphocytes # (Manual) Monocytes # (Manual) Eosinophils # (Manual) Basophils # (Manual) PT INR APTT ABG pH ABG pO2 ABG HCO3 ABG O2 Saturation ABG Base Excess ABG Hemoglobin Oxyhemoglobin Sodium Potassium Chloride Carbon Dioxide BUN Creatinine Glucose POC Glucose 116 H Lactic Acid Calcium Ionized Calcium Phosphorus Magnesium Total Bilirubin AST ALT Alkaline Phosphatase Ammonia Total Creatine Kinase CK-MB (CK-2) CK-MB (CK-2) Rel Index Total Protein Albumin Urine WBC (Auto) Vancomycin Trough 33.8 H Salicylates Acetaminophen Plasma/Serum Alcohol Crossmatch 12/21/19 12/21/19 12/21/19 14:54 17:27 23:49 WBC RBC Hgb Hct MCH RDW Plt Count Lymph % (Auto) [place] % (Auto) [place] # Baso # Seg Neutrophils % Seg Neuts % (Manual) Lymphocytes % (Manual) Monocytes % (Manual) Seg Neutrophils # Seg Neutrophils # Man Lymphocytes # (Manual) Monocytes # (Manual) Eosinophils # (Manual) Basophils # (Manual) PT INR APTT ABG pH ABG pO2 ABG HCO3 ABG O2 Saturation ABG Base Excess ABG Hemoglobin Oxyhemoglobin Sodium Potassium Chloride Carbon Dioxide BUN Creatinine Glucose POC Glucose 145 H 127 H Lactic Acid Calcium Ionized Calcium Phosphorus Magnesium Total Bilirubin AST ALT Alkaline Phosphatase Ammonia Total Creatine Kinase CK-MB (CK-2) CK-MB (CK-2) Rel Index Total Protein Albumin Urine WBC (Auto) Vancomycin Trough Salicylates Acetaminophen Plasma/Serum Alcohol Crossmatch See Detail 12/22/19 12/22/19 12/22/19 04:43 05:56 08:40 WBC RBC Hgb Hct MCH RDW Plt Count Lymph % (Auto) [place] % (Auto) [place] # Baso # Seg Neutrophils % Seg Neuts % (Manual) Lymphocytes % (Manual) Monocytes % (Manual) Seg Neutrophils # Seg Neutrophils # Man Lymphocytes # (Manual) Monocytes # (Manual) Eosinophils # (Manual) Basophils # (Manual) PT INR APTT ABG pH ABG pO2 75.6 L ABG HCO3 ABG O2 Saturation ABG Base Excess -2.6 L ABG Hemoglobin 6.8 L Oxyhemoglobin 94.6 L Sodium Potassium Chloride Carbon Dioxide 17 L BUN 60 H Creatinine 1.4 H Glucose 126 H POC Glucose 153 H Lactic Acid Calcium Ionized Calcium Phosphorus Magnesium Total Bilirubin AST ALT Alkaline Phosphatase Ammonia Total Creatine Kinase CK-MB (CK-2) CK-MB (CK-2) Rel Index Total Protein Albumin Urine WBC (Auto) Vancomycin Trough Salicylates Acetaminophen Plasma/Serum Alcohol Crossmatch 12/22/19 12/22/19 12/23/19 12:07 17:49 04:30 WBC 22.4 H RBC 2.68 L Hgb 7.6 L Hct 22.9 L MCH RDW 19.9 H Plt Count 998 H Lymph % (Auto) [place] % (Auto) [place] # Baso # Seg Neutrophils % Seg Neuts % (Manual) 88.0 H Lymphocytes % (Manual) 2.0 L Monocytes % (Manual) 9.0 H Seg Neutrophils # Seg Neutrophils # Man 19.7 H Lymphocytes # (Manual) 0.4 L Monocytes # (Manual) 2.0 H Eosinophils # (Manual) Basophils # (Manual) PT INR APTT ABG pH ABG pO2 ABG HCO3 ABG O2 Saturation ABG Base Excess ABG Hemoglobin Oxyhemoglobin Sodium Potassium Chloride Carbon Dioxide BUN Creatinine Glucose POC Glucose 140 H 116 H Lactic Acid Calcium Ionized Calcium Phosphorus Magnesium Total Bilirubin AST ALT Alkaline Phosphatase Ammonia Total Creatine Kinase CK-MB (CK-2) CK-MB (CK-2) Rel Index Total Protein Albumin Urine WBC (Auto) Vancomycin Trough Salicylates Acetaminophen Plasma/Serum Alcohol Crossmatch 12/23/19 12/23/19 12/23/19 04:30 12:00 18:06 WBC RBC Hgb Hct MCH RDW Plt Count Lymph % (Auto) [place] % (Auto) [place] # Baso # Seg Neutrophils % Seg Neuts % (Manual) Lymphocytes % (Manual) Monocytes % (Manual) Seg Neutrophils # Seg Neutrophils # Man Lymphocytes # (Manual) Monocytes # (Manual) Eosinophils # (Manual) Basophils # (Manual) PT INR APTT ABG pH ABG pO2 ABG HCO3 ABG O2 Saturation ABG Base Excess ABG Hemoglobin Oxyhemoglobin Sodium Potassium 5.2 H Chloride Carbon Dioxide 21 L BUN 69 H Creatinine 1.5 H Glucose 117 H POC Glucose 128 H 138 H Lactic Acid Calcium Ionized Calcium Phosphorus Magnesium Total Bilirubin AST ALT Alkaline Phosphatase Ammonia Total Creatine Kinase CK-MB (CK-2) CK-MB (CK-2) Rel Index Total Protein Albumin Urine WBC (Auto) Vancomycin Trough Salicylates Acetaminophen Plasma/Serum Alcohol Crossmatch 12/23/19 12/24/19 12/24/19 23:46 04:31 05:08 WBC RBC Hgb Hct MCH RDW Plt Count Lymph % (Auto) [place] % (Auto) [place] # Baso # Seg Neutrophils % Seg Neuts % (Manual) Lymphocytes % (Manual) Monocytes % (Manual) Seg Neutrophils # Seg Neutrophils # Man Lymphocytes # (Manual) Monocytes # (Manual) Eosinophils # (Manual) Basophils # (Manual) PT INR APTT ABG pH ABG pO2 ABG HCO3 ABG O2 Saturation ABG Base Excess ABG Hemoglobin Oxyhemoglobin Sodium Potassium 5.3 H Chloride 107.6 H Carbon Dioxide 20 L BUN 72 H Creatinine 1.6 H Glucose 120 H POC Glucose 120 H 140 H Lactic Acid Calcium Ionized Calcium Phosphorus Magnesium Total Bilirubin AST ALT Alkaline Phosphatase Ammonia Total Creatine Kinase CK-MB (CK-2) CK-MB (CK-2) Rel Index Total Protein Albumin Urine WBC (Auto) Vancomycin Trough Salicylates Acetaminophen Plasma/Serum Alcohol Crossmatch 12/24/19 12/24/19 12/25/19 11:58 17:49 03:47 WBC 36.2 H RBC 2.92 L Hgb 8.4 L Hct 26.1 L MCH RDW 20.2 H Plt Count 942 H Lymph % (Auto) [place] % (Auto) [place] # Baso # Seg Neutrophils % Seg Neuts % (Manual) 97.5 H Lymphocytes % (Manual) 1.0 L Monocytes % (Manual) Seg Neutrophils # Seg Neutrophils # Man 35.3 H Lymphocytes # (Manual) 0.4 L Monocytes # (Manual) Eosinophils # (Manual) Basophils # (Manual) PT INR APTT ABG pH ABG pO2 ABG HCO3 ABG O2 Saturation ABG Base Excess ABG Hemoglobin Oxyhemoglobin Sodium Potassium Chloride Carbon Dioxide BUN Creatinine Glucose POC Glucose 146 H 131 H Lactic Acid Calcium Ionized Calcium Phosphorus Magnesium Total Bilirubin AST ALT Alkaline Phosphatase Ammonia Total Creatine Kinase CK-MB (CK-2) CK-MB (CK-2) Rel Index Total Protein Albumin Urine WBC (Auto) Vancomycin Trough Salicylates Acetaminophen Plasma/Serum Alcohol Crossmatch 12/25/19 12/25/19 12/25/19 03:47 05:30 12:23 WBC RBC Hgb Hct MCH RDW Plt Count Lymph % (Auto) [place] % (Auto) [place] # Baso # Seg Neutrophils % Seg Neuts % (Manual) Lymphocytes % (Manual) Monocytes % (Manual) Seg Neutrophils # Seg Neutrophils # Man Lymphocytes # (Manual) Monocytes # (Manual) Eosinophils # (Manual) Basophils # (Manual) PT INR APTT ABG pH ABG pO2 ABG HCO3 ABG O2 Saturation ABG Base Excess ABG Hemoglobin Oxyhemoglobin Sodium Potassium Chloride Carbon Dioxide 15 L BUN 70 H Creatinine 1.7 H Glucose 153 H POC Glucose 169 H 135 H Lactic Acid Calcium Ionized Calcium Phosphorus Magnesium Total Bilirubin AST ALT Alkaline Phosphatase Ammonia Total Creatine Kinase CK-MB (CK-2) CK-MB (CK-2) Rel Index Total Protein Albumin Urine WBC (Auto) Vancomycin Trough Salicylates Acetaminophen Plasma/Serum Alcohol Crossmatch 12/25/19 12/25/19 12/26/19 17:37 23:29 09:47 WBC 22.1 H RBC 2.83 L Hgb 7.9 L Hct 25.5 L MCH RDW 20.0 H Plt Count 894 H Lymph % (Auto) [place] % (Auto) [place] # Baso # Seg Neutrophils % Seg Neuts % (Manual) Lymphocytes % (Manual) Monocytes % (Manual) Seg Neutrophils # Seg Neutrophils # Man Lymphocytes # (Manual) Monocytes # (Manual) Eosinophils # (Manual) Basophils # (Manual) PT INR APTT ABG pH ABG pO2 ABG HCO3 ABG O2 Saturation ABG Base Excess ABG Hemoglobin Oxyhemoglobin Sodium Potassium Chloride Carbon Dioxide BUN Creatinine Glucose POC Glucose 120 H 140 H Lactic Acid Calcium Ionized Calcium Phosphorus Magnesium Total Bilirubin AST ALT Alkaline Phosphatase Ammonia Total Creatine Kinase CK-MB (CK-2) CK-MB (CK-2) Rel Index Total Protein Albumin Urine WBC (Auto) Vancomycin Trough Salicylates Acetaminophen Plasma/Serum Alcohol Crossmatch 12/26/19 12/26/19 12/26/19 09:47 11:46 17:52 WBC RBC Hgb Hct MCH RDW Plt Count Lymph % (Auto) [place] % (Auto) [place] # Baso # Seg Neutrophils % Seg Neuts % (Manual) Lymphocytes % (Manual) Monocytes % (Manual) Seg Neutrophils # Seg Neutrophils # Man Lymphocytes # (Manual) Monocytes # (Manual) Eosinophils # (Manual) Basophils # (Manual) PT INR APTT ABG pH ABG pO2 ABG HCO3 ABG O2 Saturation ABG Base Excess ABG Hemoglobin Oxyhemoglobin Sodium Potassium Chloride Carbon Dioxide 18 L BUN 65 H Creatinine 1.4 H Glucose 132 H POC Glucose 110 H 145 H Lactic Acid Calcium Ionized Calcium Phosphorus Magnesium Total Bilirubin AST ALT Alkaline Phosphatase Ammonia Total Creatine Kinase CK-MB (CK-2) CK-MB (CK-2) Rel Index Total Protein Albumin Urine WBC (Auto) Vancomycin Trough Salicylates Acetaminophen Plasma/Serum Alcohol Crossmatch 12/27/19 12/27/19 12/27/19 00:01 03:42 03:42 WBC 18.0 H RBC 2.86 L Hgb 8.0 L Hct 25.2 L MCH RDW 19.2 H Plt Count 873 H Lymph % (Auto) 8.4 L [place] % (Auto) 7.5 H [place] # 1.4 H Baso # 0.2 H Seg Neutrophils % 82.2 H Seg Neuts % (Manual) Lymphocytes % (Manual) Monocytes % (Manual) Seg Neutrophils # 14.8 H Seg Neutrophils # Man Lymphocytes # (Manual) Monocytes # (Manual) Eosinophils # (Manual) Basophils # (Manual) PT INR APTT ABG pH ABG pO2 ABG HCO3 ABG O2 Saturation ABG Base Excess ABG Hemoglobin Oxyhemoglobin Sodium Potassium Chloride Carbon Dioxide BUN 73 H Creatinine 1.4 H Glucose 119 H POC Glucose 124 H Lactic Acid Calcium Ionized Calcium Phosphorus Magnesium Total Bilirubin AST ALT Alkaline Phosphatase Ammonia Total Creatine Kinase CK-MB (CK-2) CK-MB (CK-2) Rel Index Total Protein Albumin Urine WBC (Auto) Vancomycin Trough Salicylates Acetaminophen Plasma/Serum Alcohol Crossmatch 12/27/19 12/27/19 12/27/19 05:45 11:45 17:29 WBC RBC Hgb Hct MCH RDW Plt Count Lymph % (Auto) [place] % (Auto) [place] # Baso # Seg Neutrophils % Seg Neuts % (Manual) Lymphocytes % (Manual) Monocytes % (Manual) Seg Neutrophils # Seg Neutrophils # Man Lymphocytes # (Manual) Monocytes # (Manual) Eosinophils # (Manual) Basophils # (Manual) PT INR APTT ABG pH ABG pO2 ABG HCO3 ABG O2 Saturation ABG Base Excess ABG Hemoglobin Oxyhemoglobin Sodium Potassium Chloride Carbon Dioxide BUN Creatinine Glucose POC Glucose 131 H 123 H 134 H Lactic Acid Calcium Ionized Calcium Phosphorus Magnesium Total Bilirubin AST ALT Alkaline Phosphatase Ammonia Total Creatine Kinase CK-MB (CK-2) CK-MB (CK-2) Rel Index Total Protein Albumin Urine WBC (Auto) Vancomycin Trough Salicylates Acetaminophen Plasma/Serum Alcohol Crossmatch 12/28/19 12/28/19 12/28/19 00:12 05:14 11:53 WBC RBC Hgb Hct MCH RDW Plt Count Lymph % (Auto) [place] % (Auto) [place] # Baso # Seg Neutrophils % Seg Neuts % (Manual) Lymphocytes % (Manual) Monocytes % (Manual) Seg Neutrophils # Seg Neutrophils # Man Lymphocytes # (Manual) Monocytes # (Manual) Eosinophils # (Manual) Basophils # (Manual) PT INR APTT ABG pH ABG pO2 ABG HCO3 ABG O2 Saturation ABG Base Excess ABG Hemoglobin Oxyhemoglobin Sodium Potassium Chloride Carbon Dioxide BUN Creatinine Glucose POC Glucose 138 H 130 H 146 H Lactic Acid Calcium Ionized Calcium Phosphorus Magnesium Total Bilirubin AST ALT Alkaline Phosphatase Ammonia Total Creatine Kinase CK-MB (CK-2) CK-MB (CK-2) Rel Index Total Protein Albumin Urine WBC (Auto) Vancomycin Trough Salicylates Acetaminophen Plasma/Serum Alcohol Crossmatch 12/28/19 12/29/19 12/29/19 17:39 00:01 18:11 WBC RBC Hgb Hct MCH RDW Plt Count Lymph % (Auto) [place] % (Auto) [place] # Baso # Seg Neutrophils % Seg Neuts % (Manual) Lymphocytes % (Manual) Monocytes % (Manual) Seg Neutrophils # Seg Neutrophils # Man Lymphocytes # (Manual) Monocytes # (Manual) Eosinophils # (Manual) Basophils # (Manual) PT INR APTT ABG pH ABG pO2 ABG HCO3 ABG O2 Saturation ABG Base Excess ABG Hemoglobin Oxyhemoglobin Sodium Potassium Chloride Carbon Dioxide BUN Creatinine Glucose POC Glucose 117 H 139 H 130 H Lactic Acid Calcium Ionized Calcium Phosphorus Magnesium Total Bilirubin AST ALT Alkaline Phosphatase Ammonia Total Creatine Kinase CK-MB (CK-2) CK-MB (CK-2) Rel Index Total Protein Albumin Urine WBC (Auto) Vancomycin Trough Salicylates Acetaminophen Plasma/Serum Alcohol Crossmatch 12/29/19 12/30/19 12/30/19 23:09 00:02 01:06 WBC 16.7 H RBC 2.91 L Hgb 8.2 L Hct 25.4 L MCH RDW 18.7 H Plt Count 708 H Lymph % (Auto) 9.4 L [place] % (Auto) [place] # 0.9 H Baso # Seg Neutrophils % 83.5 H Seg Neuts % (Manual) Lymphocytes % (Manual) Monocytes % (Manual) Seg Neutrophils # 14.0 H Seg Neutrophils # Man Lymphocytes # (Manual) Monocytes # (Manual) Eosinophils # (Manual) Basophils # (Manual) PT INR APTT ABG pH ABG pO2 ABG HCO3 ABG O2 Saturation ABG Base Excess ABG Hemoglobin Oxyhemoglobin Sodium Potassium Chloride Carbon Dioxide BUN Creatinine Glucose POC Glucose 120 H 114 H Lactic Acid Calcium Ionized Calcium Phosphorus Magnesium Total Bilirubin AST ALT Alkaline Phosphatase Ammonia Total Creatine Kinase CK-MB (CK-2) CK-MB (CK-2) Rel Index Total Protein Albumin Urine WBC (Auto) Vancomycin Trough Salicylates Acetaminophen Plasma/Serum Alcohol Crossmatch 12/30/19 12/30/19 12/30/19 01:06 04:23 05:18 WBC RBC Hgb Hct MCH RDW Plt Count Lymph % (Auto) [place] % (Auto) [place] # Baso # Seg Neutrophils % Seg Neuts % (Manual) Lymphocytes % (Manual) Monocytes % (Manual) Seg Neutrophils # Seg Neutrophils # Man Lymphocytes # (Manual) Monocytes # (Manual) Eosinophils # (Manual) Basophils # (Manual) PT INR APTT ABG pH ABG pO2 ABG HCO3 ABG O2 Saturation ABG Base Excess ABG Hemoglobin 8.3 L Oxyhemoglobin Sodium Potassium Chloride Carbon Dioxide BUN 70 H Creatinine Glucose 122 H POC Glucose 130 H Lactic Acid Calcium Ionized Calcium Phosphorus Magnesium Total Bilirubin AST ALT Alkaline Phosphatase Ammonia Total Creatine Kinase CK-MB (CK-2) CK-MB (CK-2) Rel Index Total Protein Albumin Urine WBC (Auto) Vancomycin Trough Salicylates Acetaminophen Plasma/Serum Alcohol Crossmatch 12/30/19 12/30/19 12/30/19 05:40 12:17 17:43 WBC RBC Hgb Hct MCH RDW Plt Count Lymph % (Auto) [place] % (Auto) [place] # Baso # Seg Neutrophils % Seg Neuts % (Manual) Lymphocytes % (Manual) Monocytes % (Manual) Seg Neutrophils # Seg Neutrophils # Man Lymphocytes # (Manual) Monocytes # (Manual) Eosinophils # (Manual) Basophils # (Manual) PT INR APTT ABG pH ABG pO2 ABG HCO3 ABG O2 Saturation ABG Base Excess ABG Hemoglobin Oxyhemoglobin Sodium Potassium Chloride Carbon Dioxide BUN Creatinine Glucose POC Glucose 135 H 132 H 118 H Lactic Acid Calcium Ionized Calcium Phosphorus Magnesium Total Bilirubin AST ALT Alkaline Phosphatase Ammonia Total Creatine Kinase CK-MB (CK-2) CK-MB (CK-2) Rel Index Total Protein Albumin Urine WBC (Auto) Vancomycin Trough Salicylates Acetaminophen Plasma/Serum Alcohol Crossmatch 12/30/19 12/31/19 12/31/19 23:29 05:19 17:50 WBC RBC Hgb Hct MCH RDW Plt Count Lymph % (Auto) [place] % (Auto) [place] # Baso # Seg Neutrophils % Seg Neuts % (Manual) Lymphocytes % (Manual) Monocytes % (Manual) Seg Neutrophils # Seg Neutrophils # Man Lymphocytes # (Manual) Monocytes # (Manual) Eosinophils # (Manual) Basophils # (Manual) PT INR APTT ABG pH ABG pO2 ABG HCO3 ABG O2 Saturation ABG Base Excess ABG Hemoglobin Oxyhemoglobin Sodium Potassium Chloride Carbon Dioxide BUN Creatinine Glucose POC Glucose 114 H 109 H 116 H Lactic Acid Calcium Ionized Calcium Phosphorus Magnesium Total Bilirubin AST ALT Alkaline Phosphatase Ammonia Total Creatine Kinase CK-MB (CK-2) CK-MB (CK-2) Rel Index Total Protein Albumin Urine WBC (Auto) Vancomycin Trough Salicylates Acetaminophen Plasma/Serum Alcohol Crossmatch 01/01/20 01/01/20 01/01/20 00:10 05:19 12:02 WBC RBC Hgb Hct MCH RDW Plt Count Lymph % (Auto) [place] % (Auto) [place] # Baso # Seg Neutrophils % Seg Neuts % (Manual) Lymphocytes % (Manual) Monocytes % (Manual) Seg Neutrophils # Seg Neutrophils # Man Lymphocytes # (Manual) Monocytes # (Manual) Eosinophils # (Manual) Basophils # (Manual) PT INR APTT ABG pH ABG pO2 ABG HCO3 ABG O2 Saturation ABG Base Excess ABG Hemoglobin Oxyhemoglobin Sodium Potassium Chloride Carbon Dioxide BUN Creatinine Glucose POC Glucose 131 H 122 H 136 H Lactic Acid Calcium Ionized Calcium Phosphorus Magnesium Total Bilirubin AST ALT Alkaline Phosphatase Ammonia Total Creatine Kinase CK-MB (CK-2) CK-MB (CK-2) Rel Index Total Protein Albumin Urine WBC (Auto) Vancomycin Trough Salicylates Acetaminophen Plasma/Serum Alcohol Crossmatch 01/02/20 01/02/20 01/02/20 00:24 05:36 11:41 WBC RBC Hgb Hct MCH RDW Plt Count Lymph % (Auto) [place] % (Auto) [place] # Baso # Seg Neutrophils % Seg Neuts % (Manual) Lymphocytes % (Manual) Monocytes % (Manual) Seg Neutrophils # Seg Neutrophils # Man Lymphocytes # (Manual) Monocytes # (Manual) Eosinophils # (Manual) Basophils # (Manual) PT INR APTT ABG pH ABG pO2 ABG HCO3 ABG O2 Saturation ABG Base Excess ABG Hemoglobin Oxyhemoglobin Sodium Potassium Chloride Carbon Dioxide BUN Creatinine Glucose POC Glucose 119 H 109 H 125 H Lactic Acid Calcium Ionized Calcium Phosphorus Magnesium Total Bilirubin AST ALT Alkaline Phosphatase Ammonia Total Creatine Kinase CK-MB (CK-2) CK-MB (CK-2) Rel Index Total Protein Albumin Urine WBC (Auto) Vancomycin Trough Salicylates Acetaminophen Plasma/Serum Alcohol Crossmatch 01/02/20 01/03/20 01/03/20 17:49 05:29 12:13 WBC RBC Hgb Hct MCH RDW Plt Count Lymph % (Auto) [place] % (Auto) [place] # Baso # Seg Neutrophils % Seg Neuts % (Manual) Lymphocytes % (Manual) Monocytes % (Manual) Seg Neutrophils # Seg Neutrophils # Man Lymphocytes # (Manual) Monocytes # (Manual) Eosinophils # (Manual) Basophils # (Manual) PT INR APTT ABG pH ABG pO2 ABG HCO3 ABG O2 Saturation ABG Base Excess ABG Hemoglobin Oxyhemoglobin Sodium Potassium Chloride Carbon Dioxide BUN Creatinine Glucose POC Glucose 130 H 132 H 113 H Lactic Acid Calcium Ionized Calcium Phosphorus Magnesium Total Bilirubin AST ALT Alkaline Phosphatase Ammonia Total Creatine Kinase CK-MB (CK-2) CK-MB (CK-2) Rel Index Total Protein Albumin Urine WBC (Auto) Vancomycin Trough Salicylates Acetaminophen Plasma/Serum Alcohol Crossmatch 01/03/20 01/04/20 01/04/20 17:32 00:19 05:26 WBC RBC Hgb Hct MCH RDW Plt Count Lymph % (Auto) [place] % (Auto) [place] # Baso # Seg Neutrophils % Seg Neuts % (Manual) Lymphocytes % (Manual) Monocytes % (Manual) Seg Neutrophils # Seg Neutrophils # Man Lymphocytes # (Manual) Monocytes # (Manual) Eosinophils # (Manual) Basophils # (Manual) PT INR APTT ABG pH ABG pO2 ABG HCO3 ABG O2 Saturation ABG Base Excess ABG Hemoglobin Oxyhemoglobin Sodium Potassium Chloride Carbon Dioxide BUN Creatinine Glucose POC Glucose 127 H 141 H 129 H Lactic Acid Calcium Ionized Calcium Phosphorus Magnesium Total Bilirubin AST ALT Alkaline Phosphatase Ammonia Total Creatine Kinase CK-MB (CK-2) CK-MB (CK-2) Rel Index Total Protein Albumin Urine WBC (Auto) Vancomycin Trough Salicylates Acetaminophen Plasma/Serum Alcohol Crossmatch 01/04/20 01/04/20 01/05/20 11:39 17:29 05:22 WBC RBC Hgb Hct MCH RDW Plt Count Lymph % (Auto) [place] % (Auto) [place] # Baso # Seg Neutrophils % Seg Neuts % (Manual) Lymphocytes % (Manual) Monocytes % (Manual) Seg Neutrophils # Seg Neutrophils # Man Lymphocytes # (Manual) Monocytes # (Manual) Eosinophils # (Manual) Basophils # (Manual) PT INR APTT ABG pH ABG pO2 ABG HCO3 ABG O2 Saturation ABG Base Excess ABG Hemoglobin Oxyhemoglobin Sodium Potassium Chloride Carbon Dioxide BUN Creatinine Glucose POC Glucose 167 H 132 H 121 H Lactic Acid Calcium Ionized Calcium Phosphorus Magnesium Total Bilirubin AST ALT Alkaline Phosphatase Ammonia Total Creatine Kinase CK-MB (CK-2) CK-MB (CK-2) Rel Index Total Protein Albumin Urine WBC (Auto) Vancomycin Trough Salicylates Acetaminophen Plasma/Serum Alcohol Crossmatch 01/05/20 01/05/20 01/05/20 12:25 17:40 18:06 WBC RBC Hgb Hct MCH RDW Plt Count Lymph % (Auto) [place] % (Auto) [place] # Baso # Seg Neutrophils % Seg Neuts % (Manual) Lymphocytes % (Manual) Monocytes % (Manual) Seg Neutrophils # Seg Neutrophils # Man Lymphocytes # (Manual) Monocytes # (Manual) Eosinophils # (Manual) Basophils # (Manual) PT INR APTT ABG pH 7.472 H ABG pO2 99.2 H ABG HCO3 ABG O2 Saturation ABG Base Excess ABG Hemoglobin 7.8 L Oxyhemoglobin Sodium Potassium Chloride Carbon Dioxide BUN Creatinine Glucose POC Glucose 106 H 110 H Lactic Acid Calcium Ionized Calcium Phosphorus Magnesium Total Bilirubin AST ALT Alkaline Phosphatase Ammonia Total Creatine Kinase CK-MB (CK-2) CK-MB (CK-2) Rel Index Total Protein Albumin Urine WBC (Auto) Vancomycin Trough Salicylates Acetaminophen Plasma/Serum Alcohol Crossmatch 01/06/20 01/06/20 01/06/20 00:11 05:16 11:30 WBC RBC Hgb Hct MCH RDW Plt Count Lymph % (Auto) [place] % (Auto) [place] # Baso # Seg Neutrophils % Seg Neuts % (Manual) Lymphocytes % (Manual) Monocytes % (Manual) Seg Neutrophils # Seg Neutrophils # Man Lymphocytes # (Manual) Monocytes # (Manual) Eosinophils # (Manual) Basophils # (Manual) PT INR APTT ABG pH ABG pO2 ABG HCO3 ABG O2 Saturation ABG Base Excess ABG Hemoglobin Oxyhemoglobin Sodium Potassium Chloride Carbon Dioxide BUN Creatinine Glucose POC Glucose 108 H 124 H 125 H Lactic Acid Calcium Ionized Calcium Phosphorus Magnesium Total Bilirubin AST ALT Alkaline Phosphatase Ammonia Total Creatine Kinase CK-MB (CK-2) CK-MB (CK-2) Rel Index Total Protein Albumin Urine WBC (Auto) Vancomycin Trough Salicylates Acetaminophen Plasma/Serum Alcohol Crossmatch 01/06/20 01/06/20 01/07/20 17:53 23:51 04:12 WBC 16.5 H RBC 3.29 L Hgb 9.3 L Hct 28.1 L MCH RDW 18.2 H Plt Count 526 H Lymph % (Auto) 8.4 L [place] % (Auto) [place] # 1.0 H Baso # Seg Neutrophils % 84.4 H Seg Neuts % (Manual) Lymphocytes % (Manual) Monocytes % (Manual) Seg Neutrophils # 13.9 H Seg Neutrophils # Man Lymphocytes # (Manual) Monocytes # (Manual) Eosinophils # (Manual) Basophils # (Manual) PT INR APTT ABG pH ABG pO2 ABG HCO3 ABG O2 Saturation ABG Base Excess ABG Hemoglobin Oxyhemoglobin Sodium Potassium Chloride Carbon Dioxide BUN Creatinine Glucose POC Glucose 166 H 128 H Lactic Acid Calcium Ionized Calcium Phosphorus Magnesium Total Bilirubin AST ALT Alkaline Phosphatase Ammonia Total Creatine Kinase CK-MB (CK-2) CK-MB (CK-2) Rel Index Total Protein Albumin Urine WBC (Auto) Vancomycin Trough Salicylates Acetaminophen Plasma/Serum Alcohol Crossmatch 01/07/20 01/07/20 01/07/20 04:12 04:45 11:51 WBC RBC Hgb Hct MCH RDW Plt Count Lymph % (Auto) [place] % (Auto) [place] # Baso # Seg Neutrophils % Seg Neuts % (Manual) Lymphocytes % (Manual) Monocytes % (Manual) Seg Neutrophils # Seg Neutrophils # Man Lymphocytes # (Manual) Monocytes # (Manual) Eosinophils # (Manual) Basophils # (Manual) PT INR APTT ABG pH ABG pO2 ABG HCO3 ABG O2 Saturation ABG Base Excess ABG Hemoglobin Oxyhemoglobin Sodium 136 L Potassium Chloride Carbon Dioxide 21 L BUN 44 H Creatinine 0.6 L Glucose 124 H POC Glucose 134 H 138 H Lactic Acid Calcium Ionized Calcium Phosphorus Magnesium Total Bilirubin AST ALT Alkaline Phosphatase Ammonia Total Creatine Kinase CK-MB (CK-2) CK-MB (CK-2) Rel Index Total Protein Albumin Urine WBC (Auto) Vancomycin Trough Salicylates Acetaminophen Plasma/Serum Alcohol Crossmatch 01/07/20 01/08/20 01/08/20 17:36 00:33 05:29 WBC RBC Hgb Hct MCH RDW Plt Count Lymph % (Auto) [place] % (Auto) [place] # Baso # Seg Neutrophils % Seg Neuts % (Manual) Lymphocytes % (Manual) Monocytes % (Manual) Seg Neutrophils # Seg Neutrophils # Man Lymphocytes # (Manual) Monocytes # (Manual) Eosinophils # (Manual) Basophils # (Manual) PT INR APTT ABG pH ABG pO2 ABG HCO3 ABG O2 Saturation ABG Base Excess ABG Hemoglobin Oxyhemoglobin Sodium Potassium Chloride Carbon Dioxide BUN Creatinine Glucose POC Glucose 128 H 119 H 124 H Lactic Acid Calcium Ionized Calcium Phosphorus Magnesium Total Bilirubin AST ALT Alkaline Phosphatase Ammonia Total Creatine Kinase CK-MB (CK-2) CK-MB (CK-2) Rel Index Total Protein Albumin Urine WBC (Auto) Vancomycin Trough Salicylates Acetaminophen Plasma/Serum Alcohol Crossmatch Allied health notes reviewed: RT
--- NOTE | 2020-01-08 14:25 | Progress Note ---
Assessment and Plan / Anoxic brain injury: suspected CT head: No acute abnormality. neurology consult placed, EEG ordered showed Generalized slowing. No seizures or epileptiform activity. Per neurology : Patient found to have intact corneal/VOR/cough reflexes, and is withdrawing lower extremities, therefore patient is not found to be brain . However, given that patient had an out of hospital cardiac arrest, [facility], the likelihood of meaningful neurological recovery is somewhat low. -Patient now opening her eyes and able to follow any command by nodding head /Acute Respiratory failure -s/p intubation, s/p trach and PEG on 12/12 with mechanical ventilation - CTA was done and negative for PE, - Echo quality is poor, showed diastolic dysfunction - continue ICU monitoring - wean OFF O2/vent as tolerated, placed on T-piece but not tolerating /Anemia, microcytic -Continue to hold heparin, transfused 2 units of packed RBC -ordered stool for occult blood - pending /Acute metabolic encephalopathy/toxic encephalopathy due to the above - cont supportive care /Hyperammonemia - likely from liver disease related to EtOH abuse - Patient had elevated ammonia level and treated with lactulose /Metabolic Acidosis -Alcohol ketoacidosis vs hypoprofusion -Continue to monitor /ELevated LFTs, stable now - due to ischemic hepatitis. /Leucocytosis with sepsis - Source MRSA bacteremia and MSSA pneumonia. UA showed pyuria. RUQ US showed no ascites. - Repeat TTE negative for vegetation. Completed 7 days of Ceftriaxone on 11/29/2019. -Treated with Abx vancomycin 1 gm IV q 12 hour total 2 week till 12/30/2019 /MSSA pneumonia: Status post vancomycin till 12/30/2019 /ALcohol USe Disorder - given ongoing Alcohol use almost daily, s/p IV Thiamine - monitor /Severe hypokalemia -Repleted /Seizure disorder: treat with Keppra /H. Influenzae, tracheobronchitis, treated with abx DNR CODE STATUS The high probability of a clinically significant, sudden or life threatening deterioration of the [neurology,respiratory] system(s) required my full and direct attention, intervention and personal management. The aggregate critical care time was [32] minutes. This time is in addition to time spent performing reported procedures but includes the following: [x] Data Review and interpretation [x] Patient assessment and monitoring of vital signs [x] Documentation [x] Medication orders and management Disposition: prognosis guarded. Family okay for DNR, placement pending 12/31/19: still intubated via trach, no restraints needed, FiO2 30%, PEEP 6, Difficulty getting to Hospice, mother wants to kept updated. Patient has 4 kids, 2 sons in longterm, 1 son is transgender and not involved per mother; Daughter is Deborah who is NOK 01/01/20: Still intubated, but patient opening her eyes but does not follow any command. Unable to set up inpatient hospice 01/01 pending placement, patient is self funded 01/02 pending placement, patient is self funded 01/03 pending placement, patient is self funded. still on vent. updated patient's mother 01/04 pending placement, patient is self funded. still on vent. 01/05 pending placement, patient is tolerating T-piece trial today -off vent. 01/06 patient getting T-piece trial daily, need placement. Patient is unfunded Brief History: 54-year-old female with a past medical history of Hypertension, Depression, Tobacco use Disorder, Alcohol use Disorder as confirmed by Daughter and pt's mother presents to the hospital status post cardiac arrest at home. EMS found pt in [place]. They were unable to intubate patient with a ET tube because she was clenching down therefore Joe airway placed. Per the ED physician who evaluated pt, Patient presented with a pulse, intermittent respirations, and bagging support via Joe airway with O2 sat of 100%. Accu-Chek of 71 obtained by EMS. She was intubated in the ER and called for admission. Following admission patient was diagnosed with anoxic brain injury, sepsis with MRSA bacteremia and MSSA pneumonia, alcoholic liver disease. Family member wished for full code, patient currently getting treated with IV antibiotics for sepsis, status post trach and PEG on 12/13/19. Plan to wean off from the vent and put on T-piece b ut patient is not tolerating. Patient is uninsured, waiting for placement, guarded prognosis. Physical exam: General appearance: Present: other (on vent, elderly female, open eyes) - EENT Eyes: no scleral icterus, no conjunctival injection, pupil not reactive ENT: clear oral mucosa, dentition normal, no oropharyngeal erythema Ears: bilateral: normal - Neck Neck: trach on place - Respiratory Respiratory effort: other (on vent) Respiratory: bilateral: rales - Cardiovascular Rhythm: regular Heart Sounds: Present: S1 & S2. Absent: gallop, rub Extremities: pulses intact, No edema, normal color - Gastrointestinal General gastrointestinal: Present: soft, non-tender, non-distended, normal bowel sounds - Integumentary Integumentary: clear, warm, dry - Musculoskeletal Musculoskeletal: No joint swelling or tenderness - Neurologic Neurologic: other (intubated with trach and 2+ reflexes throughout). respond to commend and nods head. Moves only right hand - Psychiatric Psychiatric: Unable to assess as intubated with trach Subjective Date of service: 01/08/20 Principal diagnosis: Ac cardiopulmonary arrest; Ac hypoxemic resp failure; Acute encephalopathy Interval history: Patient seen and examined Can open her eyes, patient now DNR Discussed with RN at bedside, discussed with case coordinator for disposition planning Tolerating tube feeding with PEG tube, needs placement/hospice - uninsured Objective - Constitutional Vitals: Vital Signs - 12hr 01/08/20 01/08/20 01/08/20 03:00 03:39 04:00 Temperature 97.8 F Pulse Rate 112 H 109 H Pulse Rate [ From Monitor] Respiratory 23 24 Rate Respiratory Rate [ Generalized] Blood Pressure 116/78 125/84 O2 Sat by Pulse 100 100 Oximetry O2 Sat by Pulse Oximetry [ Assessment] 01/08/20 01/08/20 01/08/20 04:46 04:58 04:59 Temperature Pulse Rate 116 H Pulse Rate [ From Monitor] Respiratory Rate Respiratory Rate [ Generalized] Blood Pressure 125/84 O2 Sat by Pulse 100 100 Oximetry O2 Sat by Pulse 100 Oximetry [ Assessment] 01/08/20 01/08/20 01/08/20 05:00 05:17 06:00 Temperature Pulse Rate 116 H 113 H 114 H Pulse Rate [ From Monitor] Respiratory 23 24 Rate Respiratory Rate [ Generalized] Blood Pressure 125/84 127/87 O2 Sat by Pulse 100 100 Oximetry O2 Sat by Pulse Oximetry [ Assessment] 01/08/20 01/08/20 01/08/20 07:00 08:00 08:17 Temperature 98.0 F Pulse Rate 106 H 109 H 108 H Pulse Rate [ From Monitor] Respiratory 24 25 H Rate Respiratory Rate [ Generalized] Blood Pressure 133/90 134/96 134/96 O2 Sat by Pulse 100 100 100 Oximetry O2 Sat by Pulse Oximetry [ Assessment] 0401/08/20 01/08/20 08:24 08:25 09:00 Temperature Pulse Rate 108 H 114 H Pulse Rate [ From Monitor] Respiratory 24 Rate Respiratory Rate [ Generalized] Blood Pressure 134/96 139/88 O2 Sat by Pulse 100 100 100 Oximetry O2 Sat by Pulse Oximetry [ Assessment] 01/08/20 01/08/20 01/08/20 09:03 10:00 11:00 Temperature Pulse Rate 113 H 107 H Pulse Rate [ 108 H From Monitor] Respiratory 24 27 H 22 Rate Respiratory 24 Rate [ Generalized] Blood Pressure 126/80 119/76 O2 Sat by Pulse 100 100 100 Oximetry O2 Sat by Pulse Oximetry [ Assessment] 01/08/20 01/08/20 01/08/20 12:00 13:00 14:11 Temperature 97.9 F Pulse Rate 111 H 107 H Pulse Rate [ 108 H From Monitor] Respiratory 23 25 H Rate Respiratory Rate [ Generalized] Blood Pressure 121/78 128/82 O2 Sat by Pulse 100 100 100 Oximetry O2 Sat by Pulse Oximetry [ Assessment] - Labs CBC & Chem 7: 01/07/20 04:12 01/07/20 04:12 Labs: Abnormal lab results 01/07/20 01/08/20 01/08/20 Range/Units 17:36 00:33 05:29 POC Glucose 128 H 119 H 124 H (70-105) 01/08/20 Range/Units 12:51 POC Glucose 128 H (70-105)
[2020-01-08] MEDS: SCOPOLAMINE TRANSDERMAL PATCH 72 HR TD SCH (14:53)
[2020-01-08 20:45] LABS: ABG Base Excess -0.4 mmol/L (-2.0-3.0); ABG HCO3 23.5 mmol/L (20.0-26.0); ABG Methemoglobin 0.5 % (0.0-1.5); ABG Oxygen Saturation 98.6 % (95.0-99.0); ABG PCO2 36.3 mm Hg; ABG PH 7.429 pH Units (7.350-7.450); ABG PO2 132.2 mm Hg (80.0-90.0)
[2020-01-08] MEDS: QUEtiapine 100 MG TAB PO SCH (22:23)
[2020-01-08] MEDS: hydrOXYzine PAMOATE 25 MG CAP PO SCH ×2 (22:24→22:31)
[2020-01-09] MEDS: LANSOPRAZOLE 30 MG SOLUTAB FEEDTUBE SCH (09:15)
[2020-01-09] MEDS: SERTRALINE 50 MG TAB PO SCH (09:15)
[2020-01-09] MEDS: GLYCOPYRROLATE 1 MG TAB PO SCH ×3 (09:15→23:43)
[2020-01-09] MEDS: levETIRAcetam 500 MG/5 ML ORAL LIQD PO SCH ×2 (09:15→22:17)
[2020-01-09] MEDS: hydrOXYzine PAMOATE 25 MG CAP PO SCH ×2 (09:16→22:17)
[2020-01-09] MEDS: MIRTAZAPINE 30 MG TAB PO SCH (09:16)
[2020-01-09] MEDS: TAMSULOSIN 0.4 MG CAP PO SCH (09:16)
[2020-01-09 09:20] LABS: ABG HCO3 25.3 mmol/L (20.0-26.0); ABG Methemoglobin 0.4 % (0.0-1.5); ABG Oxygen Saturation 97.4 % (95.0-99.0); ABG PCO2 39.1 mm Hg; ABG PH 7.429 pH Units (7.350-7.450); ABG PO2 94.3 mm Hg (80.0-90.0)
--- NOTE | 2020-01-09 09:40 | Progress Note ---
Assessment and Plan Acute cardiopulmonary arrest with ROSC Acute hypoxemic respiratory failure on MVS MRSA Bacteremia MRSA pneumonia Acute [id number] encephalopathy Metabolic acidosis/alcoholic acidosis/Lactic acidosis( resolved) Ischemic hepatitis Leucocytosis - persistent Erythrocytosis Tobacco use disorder Alcohol use Disorder -CBC, BMP in am -Trach care, airway clearance, secretion management( continue scopolamine patch and Robinul) -CXR, ABG prn -Weaning trials as tolerated -Continue contact isolation for MRSA -Trend leukocytosis, and temperature curve -Continue all care as documented below. -Stop am Seroquel and decrease night time dosing to help increase her alertness -PT/OT to evaluate and treat -Continue aspiration precautions, HOB>40 -Continue Stress ulcer prophylaxis -Continue enteric nutritional support at goal rate. -Continue to monitor glycemic control, with target blood glucose 140-180 mg/dL while critically ill. -Avoid hypoglycemia - Continue to wean supplemental oxygen for target O2 sat's > 90% -Continue thiamine, multivitamin and electrolyte replacement -Continue to avoid nephrotoxins, adjust all medications for GFR and CrCL - Continue bronchodilators with pulmonary hygiene - Continue prn analgesia per CPOT score - Continue to maintain of sleep-wake cycle, avoid delirium - Continue mobility protocol and skin assessment per protocol for pressure ulcer prevention - Continue to monitor for clinical seizures - continue other care per attending / other consultants CONDITION: FAIR PROGNOSIS: GUARDED CODE STATUS: DNAR Subjective Date of service: 01/09/20 Principal diagnosis: Ac cardiopulmonary arrest; Ac hypoxemic resp failure; Acute encephalopathy Interval history: Patient is seen today for: Acute cardiopulmonary arrest with ROSC; Acute hypoxemic respiratory failure; Acute metabolic-toxic encephalopathy; Ischemic hepatitis; Leucocytosis with lactic acidosis; Tobacco use disorder; Alcohol use Disorder; s/p tracheostomy; s/p PEG Seen and examined at bedside; 24hour events reviewed; nursing and respiratory care staff consulted; no adverse overnight events reported to me; resting peacefully in bed; tolerated ATP yesterday for about 24 hours with acceptable ABG. No fevers, no vomiting, continues to tolerate tube feedings Objective Vital Signs - 12hr 01/08/20 01/08/20 01/08/20 22:00 22:19 23:00 Temperature Pulse Rate 112 H 118 H 109 H Pulse Rate [ From Monitor] Pulse Rate [ Right Dorsalis Pedis] Respiratory 25 H 23 24 Rate Respiratory 18 Rate [ Generalized] Blood Pressure 120/82 120/82 133/85 O2 Sat by Pulse 100 100 100 Oximetry O2 Sat by Pulse Oximetry [ Assessment] 01/09/20 01/09/20 01/09/20 00:00 00:03 01:00 Temperature 97.0 F L Pulse Rate 99 H 94 H Pulse Rate [ 92 H From Monitor] Pulse Rate [ 92 H Right Dorsalis Pedis] Respiratory 23 20 Rate Respiratory Rate [ Generalized] Blood Pressure 132/89 124/80 O2 Sat by Pulse 100 100 Oximetry O2 Sat by Pulse 100 Oximetry [ Assessment] 01/09/20 01/09/20 01/09/20 02:00 03:00 04:00 Temperature 96.6 F L Pulse Rate 92 H 112 H 101 H Pulse Rate [ 105 H From Monitor] Pulse Rate [ 105 H Right Dorsalis Pedis] Respiratory 21 28 H 23 Rate Respiratory Rate [ Generalized] Blood Pressure 137/91 129/84 142/85 O2 Sat by Pulse 100 100 100 Oximetry O2 Sat by Pulse Oximetry [ Assessment] 01/09/20 01/09/20 01/09/20 04:51 05:00 06:01 Temperature Pulse Rate 98 H 102 H Pulse Rate [ From Monitor] Pulse Rate [ Right Dorsalis Pedis] Respiratory 23 26 H Rate Respiratory Rate [ Generalized] Blood Pressure 132/86 143/93 O2 Sat by Pulse 100 100 100 Oximetry O2 Sat by Pulse Oximetry [ Assessment] 01/09/20 01/09/20 01/09/20 07:00 08:00 08:01 Temperature 97.8 F Pulse Rate 103 H 106 H Pulse Rate [ From Monitor] Pulse Rate [ Right Dorsalis Pedis] Respiratory 24 27 H Rate Respiratory Rate [ Generalized] Blood Pressure 142/94 133/59 O2 Sat by Pulse 100 100 Oximetry O2 Sat by Pulse Oximetry [ Assessment] 01/09/20 01/09/20 08:20 09:24 Temperature Pulse Rate Pulse Rate [ From Monitor] Pulse Rate [ Right Dorsalis Pedis] Respiratory Rate Respiratory Rate [ Generalized] Blood Pressure O2 Sat by Pulse 100 Oximetry O2 Sat by Pulse 99 Oximetry [ Assessment] Constitutional: no acute distress, lethargic Eyes: non-icteric ENT: oropharynx moist, other (s/p trach, copious oral secretions) Neck: supple, no lymphadenopathy, no JVD Effort: normal Ascultation: Bilateral: diminished breath sounds, rhonchi Percussion: Bilateral: not dull Cardiovascular: regular rate and rhythm (tachycardia), other (S1,S2) Gastrointestinal: normoactive bowel sounds, soft, non-tender, non-distended Integumentary: normal Extremities: no cyanosis, no edema, pulses normal, no ischemia or petechiae Neurologic: unable to assess, other (awake, tracking voice ) Psychiatric: other (Psychiatric: Unable to assess) CBC and BMP: 01/07/20 04:12 01/07/20 04:12 ABG, PT/INR, D-dimer: ABG ABG pH 7.429 pH Units (7.350-7.450) 01/09/20 08:51 ABG pCO2 39.1 mm Hg 01/09/20 08:51 ABG pO2 94.3 mm Hg (80.0-90.0) H 01/09/20 08:51 ABG O2 Saturation 97.4 % (95.0-99.0) 01/09/20 08:51 PT/INR, D-dimer PT 17.0 Sec. (12.2-14.9) H 11/23/19 03:47 INR 1.36 (0.87-1.13) H 11/23/19 03:47 Abnormal lab findings: Abnormal Labs 11/22/19 11/22/19 11/22/19 23:17 23:18 23:27 WBC 21.2 H RBC 3.59 L Hgb 9.8 L Hct MCH 27 L RDW 18.6 H Plt Count 454 H Lymph % (Auto) [place] % (Auto) Henderson # Baso # Seg Neutrophils % Seg Neuts % (Manual) 86.0 H Lymphocytes % (Manual) 9.0 L Monocytes % (Manual) Seg Neutrophils # Seg Neutrophils # Man 18.2 H Lymphocytes # (Manual) Monocytes # (Manual) 1.1 H Eosinophils # (Manual) Basophils # (Manual) PT INR APTT ABG pH ABG pO2 ABG HCO3 ABG O2 Saturation ABG Base Excess ABG Hemoglobin Oxyhemoglobin Sodium Potassium Chloride Carbon Dioxide BUN Creatinine Glucose POC Glucose 53 L Lactic Acid Calcium Ionized Calcium Phosphorus Magnesium Total Bilirubin AST ALT Alkaline Phosphatase Ammonia Total Creatine Kinase CK-MB (CK-2) CK-MB (CK-2) Rel Index Total Protein Albumin Urine WBC (Auto) 40.0 H Vancomycin Trough Salicylates Acetaminophen Plasma/Serum Alcohol Crossmatch 11/22/19 11/22/19 11/22/19 23:27 23:27 23:27 WBC RBC Hgb Hct MCH RDW Plt Count Lymph % (Auto) [place] % (Auto) [place] # Baso # Seg Neutrophils % Seg Neuts % (Manual) Lymphocytes % (Manual) Monocytes % (Manual) Seg Neutrophils # Seg Neutrophils # Man Lymphocytes # (Manual) Monocytes # (Manual) Eosinophils # (Manual) Basophils # (Manual) PT INR APTT ABG pH ABG pO2 ABG HCO3 ABG O2 Saturation ABG Base Excess ABG Hemoglobin Oxyhemoglobin Sodium Potassium 2.4 L* Chloride 85.1 L Carbon Dioxide 19 L BUN Creatinine 0.5 L Glucose 261 H POC Glucose Lactic Acid Calcium Ionized Calcium Phosphorus Magnesium Total Bilirubin AST 609 H ALT 152 H Alkaline Phosphatase 160 H Ammonia 117.0 H Total Creatine Kinase 139 H CK-MB (CK-2) 8.3 H CK-MB (CK-2) Rel Index 5.9 H Total Protein Albumin 3.6 L Urine WBC (Auto) Vancomycin Trough Salicylates < 0.3 L Acetaminophen Plasma/Serum Alcohol Crossmatch 11/22/19 11/22/19 11/23/19 23:27 23:27 01:10 WBC RBC Hgb Hct MCH RDW Plt Count Lymph % (Auto) [place] % (Auto) [place] # Baso # Seg Neutrophils % Seg Neuts % (Manual) Lymphocytes % (Manual) Monocytes % (Manual) Seg Neutrophils # Seg Neutrophils # Man Lymphocytes # (Manual) Monocytes # (Manual) Eosinophils # (Manual) Basophils # (Manual) PT INR APTT ABG pH 7.273 L ABG pO2 209.7 H ABG HCO3 ABG O2 Saturation 99.2 H ABG Base Excess -3.9 L ABG Hemoglobin 10.6 L Oxyhemoglobin 93.9 L Sodium Potassium Chloride Carbon Dioxide BUN Creatinine Glucose POC Glucose Lactic Acid Calcium Ionized Calcium Phosphorus Magnesium Total Bilirubin AST ALT Alkaline Phosphatase Ammonia Total Creatine Kinase CK-MB (CK-2) CK-MB (CK-2) Rel Index Total Protein Albumin Urine WBC (Auto) Vancomycin Trough Salicylates Acetaminophen < 5.0 L Plasma/Serum Alcohol 0.08 H Crossmatch 11/23/19 11/23/19 11/23/19 01:19 01:19 03:47 WBC RBC Hgb Hct MCH RDW Plt Count Lymph % (Auto) [place] % (Auto) [place] # Baso # Seg Neutrophils % Seg Neuts % (Manual) Lymphocytes % (Manual) Monocytes % (Manual) Seg Neutrophils # Seg Neutrophils # Man Lymphocytes # (Manual) Monocytes # (Manual) Eosinophils # (Manual) Basophils # (Manual) PT 16.3 H INR 1.29 H APTT ABG pH ABG pO2 ABG HCO3 ABG O2 Saturation ABG Base Excess ABG Hemoglobin Oxyhemoglobin Sodium Potassium Chloride Carbon Dioxide BUN Creatinine Glucose POC Glucose Lactic Acid 2.10 H* 5.00 H* Calcium Ionized Calcium Phosphorus Magnesium Total Bilirubin AST ALT Alkaline Phosphatase Ammonia Total Creatine Kinase CK-MB (CK-2) CK-MB (CK-2) Rel Index Total Protein Albumin Urine WBC (Auto) Vancomycin Trough Salicylates Acetaminophen Plasma/Serum Alcohol Crossmatch 11/23/19 11/23/19 11/23/19 03:47 03:47 04:53 WBC RBC Hgb 9.4 L Hct MCH RDW Plt Count Lymph % (Auto) [place] % (Auto) [place] # Baso # Seg Neutrophils % Seg Neuts % (Manual) Lymphocytes % (Manual) Monocytes % (Manual) Seg Neutrophils # Seg Neutrophils # Man Lymphocytes # (Manual) Monocytes # (Manual) Eosinophils # (Manual) Basophils # (Manual) PT 17.0 H INR 1.36 H APTT 128.2 H* ABG pH ABG pO2 ABG HCO3 ABG O2 Saturation ABG Base Excess ABG Hemoglobin Oxyhemoglobin Sodium Potassium Chloride Carbon Dioxide 18 L BUN Creatinine 0.5 L Glucose 105 H POC Glucose Lactic Acid Calcium 8.3 L Ionized Calcium Phosphorus 2.40 L Magnesium Total Bilirubin 1.30 H AST 761 H ALT 158 H Alkaline Phosphatase 143 H Ammonia Total Creatine Kinase CK-MB (CK-2) CK-MB (CK-2) Rel Index Total Protein Albumin 2.8 L Urine WBC (Auto) Vancomycin Trough Salicylates Acetaminophen Plasma/Serum Alcohol Crossmatch 11/23/19 11/23/19 11/23/19 05:12 06:32 06:32 WBC 16.8 H RBC 3.31 L Hgb 8.9 L Hct 28.7 L MCH 27 L RDW 18.6 H Plt Count Lymph % (Auto) [place] % (Auto) [place] # Baso # Seg Neutrophils % Seg Neuts % (Manual) 94.0 H Lymphocytes % (Manual) 1.0 L Monocytes % (Manual) Seg Neutrophils # Seg Neutrophils # Man 15.8 H Lymphocytes # (Manual) 0.2 L Monocytes # (Manual) Eosinophils # (Manual) Basophils # (Manual) PT INR APTT ABG pH ABG pO2 ABG HCO3 ABG O2 Saturation ABG Base Excess -3.2 L ABG Hemoglobin 9.0 L Oxyhemoglobin 93.6 L Sodium Potassium Chloride Carbon Dioxide BUN Creatinine Glucose POC Glucose Lactic Acid Calcium Ionized Calcium 4.5 L Phosphorus Magnesium Total Bilirubin AST ALT Alkaline Phosphatase Ammonia Total Creatine Kinase CK-MB (CK-2) CK-MB (CK-2) Rel Index Total Protein Albumin Urine WBC (Auto) Vancomycin Trough Salicylates Acetaminophen Plasma/Serum Alcohol Crossmatch 11/23/19 11/24/19 11/24/19 06:32 04:35 04:35 WBC RBC Hgb Hct MCH RDW Plt Count Lymph % (Auto) [place] % (Auto) [place] # Baso # Seg Neutrophils % Seg Neuts % (Manual) Lymphocytes % (Manual) Monocytes % (Manual) Seg Neutrophils # Seg Neutrophils # Man Lymphocytes # (Manual) Monocytes # (Manual) Eosinophils # (Manual) Basophils # (Manual) PT INR APTT ABG pH ABG pO2 ABG HCO3 ABG O2 Saturation ABG Base Excess ABG Hemoglobin Oxyhemoglobin Sodium Potassium Chloride Carbon Dioxide BUN Creatinine Glucose POC Glucose Lactic Acid 3.30 H* Calcium Ionized Calcium Phosphorus Magnesium 1.40 L Total Bilirubin AST ALT Alkaline Phosphatase Ammonia 98.0 H Total Creatine Kinase CK-MB (CK-2) CK-MB (CK-2) Rel Index Total Protein Albumin Urine WBC (Auto) Vancomycin Trough Salicylates Acetaminophen Plasma/Serum Alcohol Crossmatch 11/24/19 11/25/19 11/25/19 05:22 04:34 05:05 WBC 17.3 H RBC 2.88 L Hgb 7.8 L Hct 24.6 L MCH 27 L RDW 18.5 H Plt Count Lymph % (Auto) 7.7 L [place] % (Auto) 9.7 H Henderson # 1.7 H Baso # Seg Neutrophils % 82.2 H Seg Neuts % (Manual) Lymphocytes % (Manual) Monocytes % (Manual) Seg Neutrophils # 14.2 H Seg Neutrophils # Man Lymphocytes # (Manual) Monocytes # (Manual) Eosinophils # (Manual) Basophils # (Manual) PT INR APTT ABG pH 7.475 H ABG pO2 ABG HCO3 29.4 H 32.3 H ABG O2 Saturation ABG Base Excess 5.4 H 6.9 H ABG Hemoglobin 9.0 L 10.6 L Oxyhemoglobin 94.3 L Sodium Potassium Chloride Carbon Dioxide BUN Creatinine Glucose POC Glucose Lactic Acid Calcium Ionized Calcium Phosphorus Magnesium Total Bilirubin AST ALT Alkaline Phosphatase Ammonia Total Creatine Kinase CK-MB (CK-2) CK-MB (CK-2) Rel Index Total Protein Albumin Urine WBC (Auto) Vancomycin Trough Salicylates Acetaminophen Plasma/Serum Alcohol Crossmatch 11/25/19 11/25/19 11/26/19 05:05 22:46 03:31 WBC RBC Hgb Hct MCH RDW Plt Count Lymph % (Auto) [place] % (Auto) [place] # Baso # Seg Neutrophils % Seg Neuts % (Manual) Lymphocytes % (Manual) Monocytes % (Manual) Seg Neutrophils # Seg Neutrophils # Man Lymphocytes # (Manual) Monocytes # (Manual) Eosinophils # (Manual) Basophils # (Manual) PT INR APTT ABG pH 7.459 H ABG pO2 ABG HCO3 34.2 H ABG O2 Saturation ABG Base Excess 9.4 H ABG Hemoglobin 7.6 L Oxyhemoglobin 94.8 L Sodium 152 H D 147 H Potassium 2.3 L* D 2.8 L* D Chloride 107.8 H Carbon Dioxide 31 H D 33 H BUN Creatinine 0.6 L 0.6 L Glucose 148 H 177 H POC Glucose Lactic Acid Calcium Ionized Calcium Phosphorus Magnesium Total Bilirubin AST 105 H ALT 71 H Alkaline Phosphatase 155 H Ammonia Total Creatine Kinase CK-MB (CK-2) CK-MB (CK-2) Rel Index Total Protein 5.2 L D Albumin 2.9 L Urine WBC (Auto) Vancomycin Trough Salicylates Acetaminophen Plasma/Serum Alcohol Crossmatch 11/26/19 11/26/19 11/27/19 08:24 08:24 04:20 WBC 12.0 H RBC 3.00 L Hgb 8.0 L 9.3 L Hct 25.9 L 29.7 L MCH 27 L RDW 18.5 H Plt Count Lymph % (Auto) [place] % (Auto) [place] # Baso # Seg Neutrophils % Seg Neuts % (Manual) 89.0 H Lymphocytes % (Manual) 4.0 L Monocytes % (Manual) Seg Neutrophils # Seg Neutrophils # Man 10.7 H Lymphocytes # (Manual) 0.5 L Monocytes # (Manual) Eosinophils # (Manual) Basophils # (Manual) PT INR APTT ABG pH ABG pO2 ABG HCO3 ABG O2 Saturation ABG Base Excess ABG Hemoglobin Oxyhemoglobin Sodium 146 H Potassium 3.4 L D Chloride Carbon Dioxide BUN Creatinine 0.5 L Glucose 165 H POC Glucose Lactic Acid Calcium Ionized Calcium Phosphorus Magnesium Total Bilirubin AST 57 H ALT Alkaline Phosphatase 166 H Ammonia Total Creatine Kinase CK-MB (CK-2) CK-MB (CK-2) Rel Index Total Protein Albumin 2.9 L Urine WBC (Auto) Vancomycin Trough Salicylates Acetaminophen Plasma/Serum Alcohol Crossmatch 11/27/19 11/27/19 11/27/19 04:28 04:28 04:42 WBC RBC Hgb Hct MCH RDW Plt Count Lymph % (Auto) [place] % (Auto) [place] # Baso # Seg Neutrophils % Seg Neuts % (Manual) Lymphocytes % (Manual) Monocytes % (Manual) Seg Neutrophils # Seg Neutrophils # Man Lymphocytes # (Manual) Monocytes # (Manual) Eosinophils # (Manual) Basophils # (Manual) PT INR APTT ABG pH 7.470 H ABG pO2 74.0 L ABG HCO3 33.8 H ABG O2 Saturation ABG Base Excess 9.1 H ABG Hemoglobin 8.7 L Oxyhemoglobin 94.7 L Sodium 146 H Potassium 2.9 L* Chloride Carbon Dioxide BUN 25 H Creatinine Glucose 213 H POC Glucose Lactic Acid Calcium Ionized Calcium Phosphorus 1.00 L Magnesium Total Bilirubin AST ALT Alkaline Phosphatase Ammonia Total Creatine Kinase CK-MB (CK-2) CK-MB (CK-2) Rel Index Total Protein Albumin Urine WBC (Auto) Vancomycin Trough Salicylates Acetaminophen Plasma/Serum Alcohol Crossmatch 11/27/19 11/27/19 11/27/19 05:37 12:20 15:46 WBC RBC Hgb Hct MCH RDW Plt Count Lymph % (Auto) [place] % (Auto) [place] # Baso # Seg Neutrophils % Seg Neuts % (Manual) Lymphocytes % (Manual) Monocytes % (Manual) Seg Neutrophils # Seg Neutrophils # Man Lymphocytes # (Manual) Monocytes # (Manual) Eosinophils # (Manual) Basophils # (Manual) PT INR APTT ABG pH ABG pO2 ABG HCO3 ABG O2 Saturation ABG Base Excess ABG Hemoglobin Oxyhemoglobin Sodium 146 H Potassium 3.5 L D Chloride Carbon Dioxide BUN 24 H Creatinine 0.6 L Glucose 187 H POC Glucose 117 H 220 H Lactic Acid Calcium Ionized Calcium Phosphorus Magnesium Total Bilirubin AST ALT Alkaline Phosphatase Ammonia Total Creatine Kinase CK-MB (CK-2) CK-MB (CK-2) Rel Index Total Protein Albumin Urine WBC (Auto) Vancomycin Trough Salicylates Acetaminophen Plasma/Serum Alcohol Crossmatch 11/27/19 11/28/19 11/28/19 17:28 05:00 05:02 WBC RBC Hgb Hct MCH RDW Plt Count Lymph % (Auto) [place] % (Auto) [place] # Baso # Seg Neutrophils % Seg Neuts % (Manual) Lymphocytes % (Manual) Monocytes % (Manual) Seg Neutrophils # Seg Neutrophils # Man Lymphocytes # (Manual) Monocytes # (Manual) Eosinophils # (Manual) Basophils # (Manual) PT INR APTT ABG pH ABG pO2 72.4 L ABG HCO3 33.6 H ABG O2 Saturation 94.1 L ABG Base Excess 7.3 H ABG Hemoglobin Oxyhemoglobin 91.8 L Sodium 146 H Potassium 3.3 L Chloride Carbon Dioxide BUN 25 H Creatinine 0.6 L Glucose 176 H POC Glucose 198 H Lactic Acid Calcium Ionized Calcium Phosphorus Magnesium Total Bilirubin AST ALT Alkaline Phosphatase Ammonia Total Creatine Kinase CK-MB (CK-2) CK-MB (CK-2) Rel Index Total Protein Albumin Urine WBC (Auto) Vancomycin Trough Salicylates Acetaminophen Plasma/Serum Alcohol Crossmatch 11/28/19 11/28/19 11/29/19 05:02 18:55 10:43 WBC 15.2 H 19.0 H RBC 3.06 L 3.01 L Hgb 8.3 L 8.3 L Hct 27.0 L 26.4 L MCH 27 L RDW 19.0 H 19.7 H Plt Count 479 H 611 H Lymph % (Auto) [place] % (Auto) [place] # Baso # Seg Neutrophils % Seg Neuts % (Manual) 92.0 H Lymphocytes % (Manual) 2.0 L Monocytes % (Manual) Seg Neutrophils # Seg Neutrophils # Man 14.0 H Lymphocytes # (Manual) 0.3 L Monocytes # (Manual) Eosinophils # (Manual) Basophils # (Manual) PT INR APTT ABG pH ABG pO2 ABG HCO3 ABG O2 Saturation ABG Base Excess ABG Hemoglobin Oxyhemoglobin Sodium Potassium Chloride Carbon Dioxide BUN Creatinine Glucose POC Glucose 138 H Lactic Acid Calcium Ionized Calcium Phosphorus Magnesium Total Bilirubin AST ALT Alkaline Phosphatase Ammonia Total Creatine Kinase CK-MB (CK-2) CK-MB (CK-2) Rel Index Total Protein Albumin Urine WBC (Auto) Vancomycin Trough Salicylates Acetaminophen Plasma/Serum Alcohol Crossmatch 11/29/19 11/29/19 11/29/19 10:43 12:27 19:25 WBC RBC Hgb Hct MCH RDW Plt Count Lymph % (Auto) [place] % (Auto) [place] # Baso # Seg Neutrophils % Seg Neuts % (Manual) Lymphocytes % (Manual) Monocytes % (Manual) Seg Neutrophils # Seg Neutrophils # Man Lymphocytes # (Manual) Monocytes # (Manual) Eosinophils # (Manual) Basophils # (Manual) PT INR APTT ABG pH ABG pO2 ABG HCO3 ABG O2 Saturation ABG Base Excess ABG Hemoglobin Oxyhemoglobin Sodium Potassium 2.8 L* Chloride Carbon Dioxide BUN 20 H Creatinine 0.5 L Glucose 121 H POC Glucose 128 H 120 H Lactic Acid Calcium Ionized Calcium Phosphorus Magnesium Total Bilirubin AST ALT Alkaline Phosphatase Ammonia Total Creatine Kinase CK-MB (CK-2) CK-MB (CK-2) Rel Index Total Protein Albumin Urine WBC (Auto) Vancomycin Trough Salicylates Acetaminophen Plasma/Serum Alcohol Crossmatch 11/29/19 11/30/19 11/30/19 23:46 04:10 05:02 WBC RBC Hgb Hct MCH RDW Plt Count Lymph % (Auto) [place] % (Auto) [place] # Baso # Seg Neutrophils % Seg Neuts % (Manual) Lymphocytes % (Manual) Monocytes % (Manual) Seg Neutrophils # Seg Neutrophils # Man Lymphocytes # (Manual) Monocytes # (Manual) Eosinophils # (Manual) Basophils # (Manual) PT INR APTT ABG pH ABG pO2 76.3 L ABG HCO3 32.5 H ABG O2 Saturation ABG Base Excess 6.9 H ABG Hemoglobin 8.0 L Oxyhemoglobin 92.6 L Sodium Potassium Chloride Carbon Dioxide BUN Creatinine Glucose POC Glucose 116 H 128 H Lactic Acid Calcium Ionized Calcium Phosphorus Magnesium Total Bilirubin AST ALT Alkaline Phosphatase Ammonia Total Creatine Kinase CK-MB (CK-2) CK-MB (CK-2) Rel Index Total Protein Albumin Urine WBC (Auto) Vancomycin Trough Salicylates Acetaminophen Plasma/Serum Alcohol Crossmatch 11/30/19 11/30/19 11/30/19 05:25 05:25 12:59 WBC 18.4 H RBC 3.10 L Hgb 8.5 L Hct 27.5 L MCH 27 L RDW 20.9 H Plt Count 691 H Lymph % (Auto) 7.1 L [place] % (Auto) 7.7 H Henderson # 1.4 H Baso # Seg Neutrophils % 83.4 H Seg Neuts % (Manual) Lymphocytes % (Manual) Monocytes % (Manual) Seg Neutrophils # 15.4 H Seg Neutrophils # Man Lymphocytes # (Manual) Monocytes # (Manual) Eosinophils # (Manual) Basophils # (Manual) PT INR APTT ABG pH ABG pO2 ABG HCO3 ABG O2 Saturation ABG Base Excess ABG Hemoglobin Oxyhemoglobin Sodium 146 H Potassium Chloride 107.2 H Carbon Dioxide BUN Creatinine 0.5 L Glucose 132 H POC Glucose 124 H Lactic Acid Calcium Ionized Calcium Phosphorus Magnesium Total Bilirubin AST 246 H ALT 274 H Alkaline Phosphatase 203 H Ammonia Total Creatine Kinase CK-MB (CK-2) CK-MB (CK-2) Rel Index Total Protein 5.4 L Albumin 2.9 L Urine WBC (Auto) Vancomycin Trough Salicylates Acetaminophen Plasma/Serum Alcohol Crossmatch 11/30/19 12/01/19 12/01/19 17:53 00:05 05:10 WBC RBC Hgb Hct MCH RDW Plt Count Lymph % (Auto) [place] % (Auto) [place] # Baso # Seg Neutrophils % Seg Neuts % (Manual) Lymphocytes % (Manual) Monocytes % (Manual) Seg Neutrophils # Seg Neutrophils # Man Lymphocytes # (Manual) Monocytes # (Manual) Eosinophils # (Manual) Basophils # (Manual) PT INR APTT ABG pH ABG pO2 ABG HCO3 ABG O2 Saturation ABG Base Excess ABG Hemoglobin Oxyhemoglobin Sodium Potassium Chloride Carbon Dioxide BUN Creatinine Glucose POC Glucose 113 H 143 H 145 H Lactic Acid Calcium Ionized Calcium Phosphorus Magnesium Total Bilirubin AST ALT Alkaline Phosphatase Ammonia Total Creatine Kinase CK-MB (CK-2) CK-MB (CK-2) Rel Index Total Protein Albumin Urine WBC (Auto) Vancomycin Trough Salicylates Acetaminophen Plasma/Serum Alcohol Crossmatch 12/01/19 12/01/19 12/01/19 05:33 08:23 08:23 WBC 22.7 H RBC 2.88 L Hgb 7.9 L Hct 25.2 L MCH 27 L RDW 21.0 H Plt Count 732 H Lymph % (Auto) [place] % (Auto) [place] # Baso # Seg Neutrophils % Seg Neuts % (Manual) 91.0 H Lymphocytes % (Manual) 3.0 L Monocytes % (Manual) Seg Neutrophils # Seg Neutrophils # Man 20.7 H Lymphocytes # (Manual) 0.7 L Monocytes # (Manual) 1.1 H Eosinophils # (Manual) Basophils # (Manual) PT INR APTT ABG pH ABG pO2 68.6 L ABG HCO3 34.1 H ABG O2 Saturation ABG Base Excess 9.0 H ABG Hemoglobin 6.5 L Oxyhemoglobin 94.7 L Sodium Potassium Chloride Carbon Dioxide BUN Creatinine 0.5 L Glucose 125 H POC Glucose Lactic Acid Calcium Ionized Calcium Phosphorus Magnesium Total Bilirubin AST ALT Alkaline Phosphatase Ammonia Total Creatine Kinase CK-MB (CK-2) CK-MB (CK-2) Rel Index Total Protein Albumin Urine WBC (Auto) Vancomycin Trough Salicylates Acetaminophen Plasma/Serum Alcohol Crossmatch 12/01/19 12/01/19 12/01/19 13:21 17:54 20:59 WBC RBC Hgb Hct MCH RDW Plt Count Lymph % (Auto) [place] % (Auto) [place] # Baso # Seg Neutrophils % Seg Neuts % (Manual) Lymphocytes % (Manual) Monocytes % (Manual) Seg Neutrophils # Seg Neutrophils # Man Lymphocytes # (Manual) Monocytes # (Manual) Eosinophils # (Manual) Basophils # (Manual) PT INR APTT ABG pH ABG pO2 78.3 L ABG HCO3 33.8 H ABG O2 Saturation 94.9 L ABG Base Excess 7.9 H ABG Hemoglobin 11.5 L Oxyhemoglobin 92.3 L Sodium Potassium Chloride Carbon Dioxide BUN Creatinine Glucose POC Glucose 111 H 115 H Lactic Acid Calcium Ionized Calcium Phosphorus Magnesium Total Bilirubin AST ALT Alkaline Phosphatase Ammonia Total Creatine Kinase CK-MB (CK-2) CK-MB (CK-2) Rel Index Total Protein Albumin Urine WBC (Auto) Vancomycin Trough Salicylates Acetaminophen Plasma/Serum Alcohol Crossmatch 12/02/19 12/03/19 12/04/19 12:55 20:00 04:26 WBC 15.2 H RBC 2.69 L Hgb 7.4 L Hct 23.6 L MCH 27 L RDW 19.9 H Plt Count 838 H Lymph % (Auto) [place] % (Auto) [place] # Baso # Seg Neutrophils % Seg Neuts % (Manual) Lymphocytes % (Manual) Monocytes % (Manual) Seg Neutrophils # Seg Neutrophils # Man Lymphocytes # (Manual) Monocytes # (Manual) Eosinophils # (Manual) Basophils # (Manual) PT INR APTT ABG pH ABG pO2 68.3 L ABG HCO3 33.5 H ABG O2 Saturation 93.5 L ABG Base Excess 8.4 H ABG Hemoglobin 7.3 L Oxyhemoglobin 90.9 L Sodium Potassium Chloride Carbon Dioxide BUN Creatinine Glucose POC Glucose 107 H Lactic Acid Calcium Ionized Calcium Phosphorus Magnesium Total Bilirubin AST ALT Alkaline Phosphatase Ammonia Total Creatine Kinase CK-MB (CK-2) CK-MB (CK-2) Rel Index Total Protein Albumin Urine WBC (Auto) Vancomycin Trough Salicylates Acetaminophen Plasma/Serum Alcohol Crossmatch 12/04/19 12/04/19 12/04/19 04:26 07:45 12:02 WBC 15.9 H RBC 2.88 L Hgb 7.9 L Hct 25.1 L MCH RDW 20.4 H Plt Count 839 H Lymph % (Auto) 11.3 L [place] % (Auto) 15.2 H [place] # 2.4 H Baso # Seg Neutrophils % 72.4 H Seg Neuts % (Manual) Lymphocytes % (Manual) Monocytes % (Manual) Seg Neutrophils # 11.5 H Seg Neutrophils # Man Lymphocytes # (Manual) Monocytes # (Manual) Eosinophils # (Manual) Basophils # (Manual) PT INR APTT ABG pH ABG pO2 ABG HCO3 ABG O2 Saturation ABG Base Excess ABG Hemoglobin Oxyhemoglobin Sodium Potassium Chloride 96.5 L Carbon Dioxide BUN 21 H Creatinine 0.6 L Glucose 107 H POC Glucose 138 H Lactic Acid Calcium Ionized Calcium Phosphorus Magnesium Total Bilirubin AST ALT Alkaline Phosphatase Ammonia Total Creatine Kinase CK-MB (CK-2) CK-MB (CK-2) Rel Index Total Protein Albumin Urine WBC (Auto) Vancomycin Trough Salicylates Acetaminophen Plasma/Serum Alcohol Crossmatch 12/04/19 12/05/19 12/05/19 18:16 11:55 18:36 WBC RBC Hgb Hct MCH RDW Plt Count Lymph % (Auto) [place] % (Auto) [place] # Baso # Seg Neutrophils % Seg Neuts % (Manual) Lymphocytes % (Manual) Monocytes % (Manual) Seg Neutrophils # Seg Neutrophils # Man Lymphocytes # (Manual) Monocytes # (Manual) Eosinophils # (Manual) Basophils # (Manual) PT INR APTT ABG pH ABG pO2 ABG HCO3 ABG O2 Saturation ABG Base Excess ABG Hemoglobin Oxyhemoglobin Sodium Potassium Chloride Carbon Dioxide BUN Creatinine Glucose POC Glucose 135 H 125 H 135 H Lactic Acid Calcium Ionized Calcium Phosphorus Magnesium Total Bilirubin AST ALT Alkaline Phosphatase Ammonia Total Creatine Kinase CK-MB (CK-2) CK-MB (CK-2) Rel Index Total Protein Albumin Urine WBC (Auto) Vancomycin Trough Salicylates Acetaminophen Plasma/Serum Alcohol Crossmatch 12/05/19 12/06/19 12/06/19 23:30 04:14 05:43 WBC RBC Hgb Hct MCH RDW Plt Count Lymph % (Auto) [place] % (Auto) [place] # Baso # Seg Neutrophils % Seg Neuts % (Manual) Lymphocytes % (Manual) Monocytes % (Manual) Seg Neutrophils # Seg Neutrophils # Man Lymphocytes # (Manual) Monocytes # (Manual) Eosinophils # (Manual) Basophils # (Manual) PT INR APTT ABG pH ABG pO2 ABG HCO3 ABG O2 Saturation ABG Base Excess ABG Hemoglobin Oxyhemoglobin Sodium Potassium 5.6 H Chloride 95.0 L Carbon Dioxide BUN 48 H Creatinine 1.3 H D Glucose POC Glucose 126 H 121 H Lactic Acid Calcium Ionized Calcium Phosphorus Magnesium Total Bilirubin AST 89 H ALT 98 H Alkaline Phosphatase 476 H Ammonia Total Creatine Kinase CK-MB (CK-2) CK-MB (CK-2) Rel Index Total Protein Albumin 2.8 L Urine WBC (Auto) Vancomycin Trough Salicylates Acetaminophen Plasma/Serum Alcohol Crossmatch 12/06/19 12/06/19 12/07/19 10:39 14:34 00:19 WBC 17.3 H RBC 2.60 L Hgb 7.1 L Hct 22.7 L MCH 27 L RDW 20.1 H Plt Count 832 H Lymph % (Auto) [place] % (Auto) [place] # Baso # Seg Neutrophils % Seg Neuts % (Manual) Lymphocytes % (Manual) Monocytes % (Manual) Seg Neutrophils # Seg Neutrophils # Man Lymphocytes # (Manual) Monocytes # (Manual) Eosinophils # (Manual) Basophils # (Manual) PT INR APTT ABG pH ABG pO2 ABG HCO3 ABG O2 Saturation ABG Base Excess ABG Hemoglobin Oxyhemoglobin Sodium Potassium Chloride Carbon Dioxide BUN Creatinine Glucose POC Glucose 128 H 136 H Lactic Acid Calcium Ionized Calcium Phosphorus Magnesium Total Bilirubin AST ALT Alkaline Phosphatase Ammonia Total Creatine Kinase CK-MB (CK-2) CK-MB (CK-2) Rel Index Total Protein Albumin Urine WBC (Auto) Vancomycin Trough Salicylates Acetaminophen Plasma/Serum Alcohol Crossmatch 12/07/19 12/07/19 12/07/19 03:44 03:44 05:53 WBC 16.2 H RBC 2.56 L Hgb 7.1 L Hct 22.3 L MCH RDW 19.4 H Plt Count 782 H Lymph % (Auto) [place] % (Auto) [place] # Baso # Seg Neutrophils % Seg Neuts % (Manual) Lymphocytes % (Manual) Monocytes % (Manual) Seg Neutrophils # Seg Neutrophils # Man Lymphocytes # (Manual) Monocytes # (Manual) Eosinophils # (Manual) Basophils # (Manual) PT INR APTT ABG pH ABG pO2 ABG HCO3 ABG O2 Saturation ABG Base Excess ABG Hemoglobin Oxyhemoglobin Sodium Potassium Chloride 95.6 L Carbon Dioxide BUN 56 H Creatinine 1.4 H Glucose 120 H POC Glucose 128 H Lactic Acid Calcium 10.3 H Ionized Calcium Phosphorus Magnesium Total Bilirubin AST ALT Alkaline Phosphatase Ammonia Total Creatine Kinase CK-MB (CK-2) CK-MB (CK-2) Rel Index Total Protein Albumin Urine WBC (Auto) Vancomycin Trough Salicylates Acetaminophen Plasma/Serum Alcohol Crossmatch 12/07/19 12/07/19 12/08/19 12:54 23:47 00:20 WBC RBC Hgb Hct MCH RDW Plt Count Lymph % (Auto) [place] % (Auto) [place] # Baso # Seg Neutrophils % Seg Neuts % (Manual) Lymphocytes % (Manual) Monocytes % (Manual) Seg Neutrophils # Seg Neutrophils # Man Lymphocytes # (Manual) Monocytes # (Manual) Eosinophils # (Manual) Basophils # (Manual) PT INR APTT ABG pH ABG pO2 ABG HCO3 ABG O2 Saturation ABG Base Excess ABG Hemoglobin Oxyhemoglobin Sodium Potassium Chloride Carbon Dioxide BUN Creatinine Glucose POC Glucose 128 H 130 H 124 H Lactic Acid Calcium Ionized Calcium Phosphorus Magnesium Total Bilirubin AST ALT Alkaline Phosphatase Ammonia Total Creatine Kinase CK-MB (CK-2) CK-MB (CK-2) Rel Index Total Protein Albumin Urine WBC (Auto) Vancomycin Trough Salicylates Acetaminophen Plasma/Serum Alcohol Crossmatch 12/08/19 12/08/19 12/08/19 06:38 12:04 18:26 WBC RBC Hgb Hct MCH RDW Plt Count Lymph % (Auto) [place] % (Auto) [place] # Baso # Seg Neutrophils % Seg Neuts % (Manual) Lymphocytes % (Manual) Monocytes % (Manual) Seg Neutrophils # Seg Neutrophils # Man Lymphocytes # (Manual) Monocytes # (Manual) Eosinophils # (Manual) Basophils # (Manual) PT INR APTT ABG pH ABG pO2 ABG HCO3 ABG O2 Saturation ABG Base Excess ABG Hemoglobin Oxyhemoglobin Sodium Potassium Chloride Carbon Dioxide BUN Creatinine Glucose POC Glucose 137 H 129 H 150 H Lactic Acid Calcium Ionized Calcium Phosphorus Magnesium Total Bilirubin AST ALT Alkaline Phosphatase Ammonia Total Creatine Kinase CK-MB (CK-2) CK-MB (CK-2) Rel Index Total Protein Albumin Urine WBC (Auto) Vancomycin Trough Salicylates Acetaminophen Plasma/Serum Alcohol Crossmatch 12/09/19 12/09/19 12/09/19 00:56 05:34 06:13 WBC RBC Hgb Hct MCH RDW Plt Count Lymph % (Auto) [place] % (Auto) [place] # Baso # Seg Neutrophils % Seg Neuts % (Manual) Lymphocytes % (Manual) Monocytes % (Manual) Seg Neutrophils # Seg Neutrophils # Man Lymphocytes # (Manual) Monocytes # (Manual) Eosinophils # (Manual) Basophils # (Manual) PT INR APTT ABG pH ABG pO2 ABG HCO3 ABG O2 Saturation ABG Base Excess ABG Hemoglobin Oxyhemoglobin Sodium 146 H Potassium Chloride Carbon Dioxide BUN 66 H Creatinine 1.9 H Glucose 116 H POC Glucose 130 H 130 H Lactic Acid Calcium Ionized Calcium Phosphorus Magnesium Total Bilirubin AST ALT Alkaline Phosphatase Ammonia Total Creatine Kinase CK-MB (CK-2) CK-MB (CK-2) Rel Index Total Protein Albumin Urine WBC (Auto) Vancomycin Trough Salicylates Acetaminophen Plasma/Serum Alcohol Crossmatch 12/09/19 12/09/19 12/10/19 11:52 17:50 00:14 WBC RBC Hgb Hct MCH RDW Plt Count Lymph % (Auto) [place] % (Auto) [place] # Baso # Seg Neutrophils % Seg Neuts % (Manual) Lymphocytes % (Manual) Monocytes % (Manual) Seg Neutrophils # Seg Neutrophils # Man Lymphocytes # (Manual) Monocytes # (Manual) Eosinophils # (Manual) Basophils # (Manual) PT INR APTT ABG pH ABG pO2 ABG HCO3 ABG O2 Saturation ABG Base Excess ABG Hemoglobin Oxyhemoglobin Sodium Potassium Chloride Carbon Dioxide BUN Creatinine Glucose POC Glucose 135 H 120 H 116 H Lactic Acid Calcium Ionized Calcium Phosphorus Magnesium Total Bilirubin AST ALT Alkaline Phosphatase Ammonia Total Creatine Kinase CK-MB (CK-2) CK-MB (CK-2) Rel Index Total Protein Albumin Urine WBC (Auto) Vancomycin Trough Salicylates Acetaminophen Plasma/Serum Alcohol Crossmatch 12/10/19 12/10/19 12/10/19 05:38 11:38 17:34 WBC RBC Hgb Hct MCH RDW Plt Count Lymph % (Auto) [place] % (Auto) [place] # Baso # Seg Neutrophils % Seg Neuts % (Manual) Lymphocytes % (Manual) Monocytes % (Manual) Seg Neutrophils # Seg Neutrophils # Man Lymphocytes # (Manual) Monocytes # (Manual) Eosinophils # (Manual) Basophils # (Manual) PT INR APTT ABG pH ABG pO2 ABG HCO3 ABG O2 Saturation ABG Base Excess ABG Hemoglobin Oxyhemoglobin Sodium Potassium Chloride Carbon Dioxide BUN Creatinine Glucose POC Glucose 115 H 112 H 130 H Lactic Acid Calcium Ionized Calcium Phosphorus Magnesium Total Bilirubin AST ALT Alkaline Phosphatase Ammonia Total Creatine Kinase CK-MB (CK-2) CK-MB (CK-2) Rel Index Total Protein Albumin Urine WBC (Auto) Vancomycin Trough Salicylates Acetaminophen Plasma/Serum Alcohol Crossmatch 12/11/19 12/11/19 12/11/19 00:20 05:31 12:22 WBC RBC Hgb Hct MCH RDW Plt Count Lymph % (Auto) [place] % (Auto) [place] # Baso # Seg Neutrophils % Seg Neuts % (Manual) Lymphocytes % (Manual) Monocytes % (Manual) Seg Neutrophils # Seg Neutrophils # Man Lymphocytes # (Manual) Monocytes # (Manual) Eosinophils # (Manual) Basophils # (Manual) PT INR APTT ABG pH ABG pO2 ABG HCO3 ABG O2 Saturation ABG Base Excess ABG Hemoglobin Oxyhemoglobin Sodium Potassium Chloride Carbon Dioxide BUN Creatinine Glucose POC Glucose 124 H 132 H 128 H Lactic Acid Calcium Ionized Calcium Phosphorus Magnesium Total Bilirubin AST ALT Alkaline Phosphatase Ammonia Total Creatine Kinase CK-MB (CK-2) CK-MB (CK-2) Rel Index Total Protein Albumin Urine WBC (Auto) Vancomycin Trough Salicylates Acetaminophen Plasma/Serum Alcohol Crossmatch 12/11/19 12/11/19 12/12/19 18:04 23:42 03:51 WBC RBC Hgb Hct MCH RDW Plt Count Lymph % (Auto) [place] % (Auto) [place] # Baso # Seg Neutrophils % Seg Neuts % (Manual) Lymphocytes % (Manual) Monocytes % (Manual) Seg Neutrophils # Seg Neutrophils # Man Lymphocytes # (Manual) Monocytes # (Manual) Eosinophils # (Manual) Basophils # (Manual) PT INR APTT ABG pH ABG pO2 ABG HCO3 ABG O2 Saturation ABG Base Excess ABG Hemoglobin Oxyhemoglobin Sodium 149 H Potassium Chloride Carbon Dioxide 20 L D BUN 77 H Creatinine 2.8 H Glucose POC Glucose 133 H 154 H Lactic Acid Calcium Ionized Calcium Phosphorus Magnesium Total Bilirubin AST ALT Alkaline Phosphatase Ammonia Total Creatine Kinase CK-MB (CK-2) CK-MB (CK-2) Rel Index Total Protein Albumin Urine WBC (Auto) Vancomycin Trough Salicylates Acetaminophen Plasma/Serum Alcohol Crossmatch 12/12/19 12/12/19 12/12/19 05:18 05:26 10:30 WBC 18.0 H RBC 2.51 L Hgb 6.8 L Hct 22.0 L MCH 27 L RDW 19.9 H Plt Count 582 H Lymph % (Auto) [place] % (Auto) [place] # Baso # Seg Neutrophils % Seg Neuts % (Manual) Lymphocytes % (Manual) Monocytes % (Manual) Seg Neutrophils # Seg Neutrophils # Man Lymphocytes # (Manual) Monocytes # (Manual) Eosinophils # (Manual) Basophils # (Manual) PT INR APTT ABG pH ABG pO2 ABG HCO3 ABG O2 Saturation ABG Base Excess ABG Hemoglobin Oxyhemoglobin Sodium Potassium Chloride Carbon Dioxide BUN Creatinine Glucose POC Glucose 135 H Lactic Acid Calcium Ionized Calcium Phosphorus Magnesium Total Bilirubin AST ALT Alkaline Phosphatase Ammonia Total Creatine Kinase CK-MB (CK-2) CK-MB (CK-2) Rel Index Total Protein Albumin Urine WBC (Auto) Vancomycin Trough Salicylates Acetaminophen Plasma/Serum Alcohol Crossmatch See Detail 12/12/19 12/12/19 12/12/19 11:44 18:10 23:21 WBC RBC Hgb Hct MCH RDW Plt Count Lymph % (Auto) [place] % (Auto) [place] # Baso # Seg Neutrophils % Seg Neuts % (Manual) Lymphocytes % (Manual) Monocytes % (Manual) Seg Neutrophils # Seg Neutrophils # Man Lymphocytes # (Manual) Monocytes # (Manual) Eosinophils # (Manual) Basophils # (Manual) PT INR APTT ABG pH ABG pO2 ABG HCO3 ABG O2 Saturation ABG Base Excess ABG Hemoglobin Oxyhemoglobin Sodium Potassium Chloride Carbon Dioxide BUN Creatinine Glucose POC Glucose 108 H 107 H 126 H Lactic Acid Calcium Ionized Calcium Phosphorus Magnesium Total Bilirubin AST ALT Alkaline Phosphatase Ammonia Total Creatine Kinase CK-MB (CK-2) CK-MB (CK-2) Rel Index Total Protein Albumin Urine WBC (Auto) Vancomycin Trough Salicylates Acetaminophen Plasma/Serum Alcohol Crossmatch 12/13/19 12/13/19 12/13/19 05:41 07:48 07:48 WBC 38.3 H RBC 2.37 L Hgb 6.3 L Hct 20.9 L MCH 27 L RDW 20.2 H Plt Count 546 H Lymph % (Auto) [place] % (Auto) [place] # Baso # Seg Neutrophils % Seg Neuts % (Manual) 93.0 H Lymphocytes % (Manual) 1.0 L Monocytes % (Manual) Seg Neutrophils # Seg Neutrophils # Man 35.6 H Lymphocytes # (Manual) 0.4 L Monocytes # (Manual) Eosinophils # (Manual) Basophils # (Manual) 0.4 H PT INR APTT ABG pH ABG pO2 ABG HCO3 ABG O2 Saturation ABG Base Excess ABG Hemoglobin Oxyhemoglobin Sodium 152 H Potassium 3.1 L D Chloride 111.9 H Carbon Dioxide 21 L BUN 53 H Creatinine 1.9 H Glucose 141 H POC Glucose 128 H Lactic Acid Calcium Ionized Calcium Phosphorus Magnesium Total Bilirubin AST ALT Alkaline Phosphatase 316 H Ammonia Total Creatine Kinase CK-MB (CK-2) CK-MB (CK-2) Rel Index Total Protein Albumin 2.4 L Urine WBC (Auto) Vancomycin Trough Salicylates Acetaminophen Plasma/Serum Alcohol Crossmatch 12/13/19 12/13/19 12/14/19 18:17 23:19 05:36 WBC RBC Hgb Hct MCH RDW Plt Count Lymph % (Auto) [place] % (Auto) [place] # Baso # Seg Neutrophils % Seg Neuts % (Manual) Lymphocytes % (Manual) Monocytes % (Manual) Seg Neutrophils # Seg Neutrophils # Man Lymphocytes # (Manual) Monocytes # (Manual) Eosinophils # (Manual) Basophils # (Manual) PT INR APTT ABG pH ABG pO2 ABG HCO3 ABG O2 Saturation ABG Base Excess ABG Hemoglobin Oxyhemoglobin Sodium Potassium Chloride Carbon Dioxide BUN Creatinine Glucose POC Glucose 141 H 158 H 182 H Lactic Acid Calcium Ionized Calcium Phosphorus Magnesium Total Bilirubin AST ALT Alkaline Phosphatase Ammonia Total Creatine Kinase CK-MB (CK-2) CK-MB (CK-2) Rel Index Total Protein Albumin Urine WBC (Auto) Vancomycin Trough Salicylates Acetaminophen Plasma/Serum Alcohol Crossmatch 12/14/19 12/14/19 12/14/19 08:48 08:48 10:31 WBC 33.3 H RBC 2.70 L Hgb 7.9 L 8.0 L Hct 25.3 L 24.0 L MCH RDW 19.2 H Plt Count 476 H Lymph % (Auto) [place] % (Auto) [place] # Baso # Seg Neutrophils % Seg Neuts % (Manual) Lymphocytes % (Manual) Monocytes % (Manual) Seg Neutrophils # Seg Neutrophils # Man Lymphocytes # (Manual) Monocytes # (Manual) Eosinophils # (Manual) Basophils # (Manual) PT INR APTT ABG pH ABG pO2 ABG HCO3 ABG O2 Saturation ABG Base Excess ABG Hemoglobin Oxyhemoglobin Sodium 153 H Potassium 2.5 L* Chloride 114.9 H Carbon Dioxide 20 L BUN 38 H Creatinine 1.4 H Glucose 177 H POC Glucose Lactic Acid Calcium Ionized Calcium Phosphorus Magnesium Total Bilirubin AST ALT Alkaline Phosphatase Ammonia Total Creatine Kinase CK-MB (CK-2) CK-MB (CK-2) Rel Index Total Protein Albumin Urine WBC (Auto) Vancomycin Trough Salicylates Acetaminophen Plasma/Serum Alcohol Crossmatch 12/14/19 12/14/19 12/14/19 12:57 16:15 17:50 WBC RBC Hgb Hct MCH RDW Plt Count Lymph % (Auto) [place] % (Auto) [place] # Baso # Seg Neutrophils % Seg Neuts % (Manual) Lymphocytes % (Manual) Monocytes % (Manual) Seg Neutrophils # Seg Neutrophils # Man Lymphocytes # (Manual) Monocytes # (Manual) Eosinophils # (Manual) Basophils # (Manual) PT INR APTT ABG pH ABG pO2 73.6 L ABG HCO3 ABG O2 Saturation ABG Base Excess ABG Hemoglobin 7.6 L Oxyhemoglobin 94.0 L Sodium Potassium Chloride Carbon Dioxide BUN Creatinine Glucose POC Glucose 174 H 150 H Lactic Acid Calcium Ionized Calcium Phosphorus Magnesium Total Bilirubin AST ALT Alkaline Phosphatase Ammonia Total Creatine Kinase CK-MB (CK-2) CK-MB (CK-2) Rel Index Total Protein Albumin Urine WBC (Auto) Vancomycin Trough Salicylates Acetaminophen Plasma/Serum Alcohol Crossmatch 12/15/19 12/15/19 12/15/19 00:28 05:27 07:23 WBC 30.0 H RBC 3.11 L Hgb 8.6 L Hct 27.7 L MCH RDW 20.0 H Plt Count 473 H Lymph % (Auto) [place] % (Auto) [place] # Baso # Seg Neutrophils % Seg Neuts % (Manual) Lymphocytes % (Manual) Monocytes % (Manual) Seg Neutrophils # Seg Neutrophils # Man Lymphocytes # (Manual) Monocytes # (Manual) Eosinophils # (Manual) Basophils # (Manual) PT INR APTT ABG pH ABG pO2 ABG HCO3 ABG O2 Saturation ABG Base Excess ABG Hemoglobin Oxyhemoglobin Sodium Potassium Chloride Carbon Dioxide BUN Creatinine Glucose POC Glucose 167 H 148 H Lactic Acid Calcium Ionized Calcium Phosphorus Magnesium Total Bilirubin AST ALT Alkaline Phosphatase Ammonia Total Creatine Kinase CK-MB (CK-2) CK-MB (CK-2) Rel Index Total Protein Albumin Urine WBC (Auto) Vancomycin Trough Salicylates Acetaminophen Plasma/Serum Alcohol Crossmatch 12/15/19 12/15/19 12/15/19 07:23 12:21 17:41 WBC RBC Hgb Hct MCH RDW Plt Count Lymph % (Auto) [place] % (Auto) [place] # Baso # Seg Neutrophils % Seg Neuts % (Manual) Lymphocytes % (Manual) Monocytes % (Manual) Seg Neutrophils # Seg Neutrophils # Man Lymphocytes # (Manual) Monocytes # (Manual) Eosinophils # (Manual) Basophils # (Manual) PT INR APTT ABG pH ABG pO2 ABG HCO3 ABG O2 Saturation ABG Base Excess ABG Hemoglobin Oxyhemoglobin Sodium 147 H Potassium 3.5 L D Chloride 111.2 H Carbon Dioxide 19 L BUN 29 H Creatinine Glucose 126 H POC Glucose 154 H 144 H Lactic Acid Calcium Ionized Calcium Phosphorus Magnesium Total Bilirubin AST ALT Alkaline Phosphatase Ammonia Total Creatine Kinase CK-MB (CK-2) CK-MB (CK-2) Rel Index Total Protein Albumin Urine WBC (Auto) Vancomycin Trough Salicylates Acetaminophen Plasma/Serum Alcohol Crossmatch 12/16/19 12/16/19 12/16/19 00:22 05:30 05:44 WBC 30.8 H RBC 2.58 L Hgb 7.1 L Hct 22.7 L MCH RDW 19.6 H Plt Count 451 H Lymph % (Auto) [place] % (Auto) [place] # Baso # Seg Neutrophils % Seg Neuts % (Manual) Lymphocytes % (Manual) Monocytes % (Manual) Seg Neutrophils # Seg Neutrophils # Man Lymphocytes # (Manual) Monocytes # (Manual) Eosinophils # (Manual) Basophils # (Manual) PT INR APTT ABG pH ABG pO2 ABG HCO3 ABG O2 Saturation ABG Base Excess ABG Hemoglobin Oxyhemoglobin Sodium Potassium Chloride Carbon Dioxide BUN Creatinine Glucose POC Glucose 139 H 126 H Lactic Acid Calcium Ionized Calcium Phosphorus Magnesium Total Bilirubin AST ALT Alkaline Phosphatase Ammonia Total Creatine Kinase CK-MB (CK-2) CK-MB (CK-2) Rel Index Total Protein Albumin Urine WBC (Auto) Vancomycin Trough Salicylates Acetaminophen Plasma/Serum Alcohol Crossmatch 12/16/19 12/16/19 12/16/19 05:44 11:48 17:37 WBC RBC Hgb Hct MCH RDW Plt Count Lymph % (Auto) [place] % (Auto) [place] # Baso # Seg Neutrophils % Seg Neuts % (Manual) Lymphocytes % (Manual) Monocytes % (Manual) Seg Neutrophils # Seg Neutrophils # Man Lymphocytes # (Manual) Monocytes # (Manual) Eosinophils # (Manual) Basophils # (Manual) PT INR APTT ABG pH ABG pO2 ABG HCO3 ABG O2 Saturation ABG Base Excess ABG Hemoglobin Oxyhemoglobin Sodium Potassium 3.4 L Chloride 109.2 H Carbon Dioxide 19 L BUN 27 H Creatinine Glucose 124 H POC Glucose 125 H 148 H Lactic Acid Calcium Ionized Calcium Phosphorus Magnesium Total Bilirubin AST ALT Alkaline Phosphatase Ammonia Total Creatine Kinase CK-MB (CK-2) CK-MB (CK-2) Rel Index Total Protein Albumin Urine WBC (Auto) Vancomycin Trough Salicylates Acetaminophen Plasma/Serum Alcohol Crossmatch 12/16/19 12/17/19 12/17/19 23:43 05:28 12:47 WBC RBC Hgb Hct MCH RDW Plt Count Lymph % (Auto) [place] % (Auto) [place] # Baso # Seg Neutrophils % Seg Neuts % (Manual) Lymphocytes % (Manual) Monocytes % (Manual) Seg Neutrophils # Seg Neutrophils # Man Lymphocytes # (Manual) Monocytes # (Manual) Eosinophils # (Manual) Basophils # (Manual) PT INR APTT ABG pH ABG pO2 ABG HCO3 ABG O2 Saturation ABG Base Excess ABG Hemoglobin Oxyhemoglobin Sodium Potassium Chloride Carbon Dioxide BUN Creatinine Glucose POC Glucose 142 H 140 H 125 H Lactic Acid Calcium Ionized Calcium Phosphorus Magnesium Total Bilirubin AST ALT Alkaline Phosphatase Ammonia Total Creatine Kinase CK-MB (CK-2) CK-MB (CK-2) Rel Index Total Protein Albumin Urine WBC (Auto) Vancomycin Trough Salicylates Acetaminophen Plasma/Serum Alcohol Crossmatch 12/17/19 12/17/19 12/17/19 17:05 18:00 Unknown WBC RBC Hgb Hct MCH RDW Plt Count Lymph % (Auto) [place] % (Auto) [place] # Baso # Seg Neutrophils % Seg Neuts % (Manual) Lymphocytes % (Manual) Monocytes % (Manual) Seg Neutrophils # Seg Neutrophils # Man Lymphocytes # (Manual) Monocytes # (Manual) Eosinophils # (Manual) Basophils # (Manual) PT INR APTT ABG pH ABG pO2 68.1 L ABG HCO3 ABG O2 Saturation 93.7 L ABG Base Excess ABG Hemoglobin 5.0 L Oxyhemoglobin 91.7 L Sodium Potassium Chloride Carbon Dioxide BUN Creatinine Glucose POC Glucose 140 H Lactic Acid Calcium Ionized Calcium Phosphorus Magnesium Total Bilirubin AST ALT Alkaline Phosphatase Ammonia Total Creatine Kinase CK-MB (CK-2) CK-MB (CK-2) Rel Index Total Protein Albumin Urine WBC (Auto) Vancomycin Trough Salicylates Acetaminophen Plasma/Serum Alcohol Crossmatch 12/18/19 12/18/19 12/18/19 00:16 04:53 04:53 WBC 28.6 H RBC 2.27 L Hgb 6.3 L Hct 19.5 L* MCH RDW 20.0 H Plt Count 497 H Lymph % (Auto) [place] % (Auto) [place] # Baso # Seg Neutrophils % Seg Neuts % (Manual) Lymphocytes % (Manual) Monocytes % (Manual) Seg Neutrophils # Seg Neutrophils # Man Lymphocytes # (Manual) Monocytes # (Manual) Eosinophils # (Manual) Basophils # (Manual) PT INR APTT ABG pH ABG pO2 ABG HCO3 ABG O2 Saturation ABG Base Excess ABG Hemoglobin Oxyhemoglobin Sodium Potassium Chloride 107.9 H Carbon Dioxide 20 L BUN 27 H Creatinine 0.6 L Glucose 116 H POC Glucose 123 H Lactic Acid Calcium Ionized Calcium Phosphorus Magnesium Total Bilirubin AST ALT Alkaline Phosphatase Ammonia Total Creatine Kinase CK-MB (CK-2) CK-MB (CK-2) Rel Index Total Protein Albumin Urine WBC (Auto) Vancomycin Trough Salicylates Acetaminophen Plasma/Serum Alcohol Crossmatch 12/18/19 12/18/19 12/18/19 06:38 11:22 12:08 WBC RBC Hgb Hct MCH RDW Plt Count Lymph % (Auto) [place] % (Auto) [place] # Baso # Seg Neutrophils % Seg Neuts % (Manual) Lymphocytes % (Manual) Monocytes % (Manual) Seg Neutrophils # Seg Neutrophils # Man Lymphocytes # (Manual) Monocytes # (Manual) Eosinophils # (Manual) Basophils # (Manual) PT INR APTT ABG pH ABG pO2 ABG HCO3 ABG O2 Saturation ABG Base Excess ABG Hemoglobin Oxyhemoglobin Sodium Potassium Chloride Carbon Dioxide BUN Creatinine Glucose POC Glucose 120 H 127 H Lactic Acid Calcium Ionized Calcium Phosphorus Magnesium Total Bilirubin AST ALT Alkaline Phosphatase Ammonia Total Creatine Kinase CK-MB (CK-2) CK-MB (CK-2) Rel Index Total Protein Albumin Urine WBC (Auto) Vancomycin Trough Salicylates Acetaminophen Plasma/Serum Alcohol Crossmatch See Detail 12/18/19 12/18/19 12/18/19 14:05 17:49 23:53 WBC RBC Hgb Hct MCH RDW Plt Count Lymph % (Auto) [place] % (Auto) [place] # Baso # Seg Neutrophils % Seg Neuts % (Manual) Lymphocytes % (Manual) Monocytes % (Manual) Seg Neutrophils # Seg Neutrophils # Man Lymphocytes # (Manual) Monocytes # (Manual) Eosinophils # (Manual) Basophils # (Manual) PT INR APTT ABG pH 7.267 L ABG pO2 69.8 L ABG HCO3 ABG O2 Saturation 88.4 L ABG Base Excess ABG Hemoglobin 7.1 L Oxyhemoglobin 86.4 L Sodium Potassium Chloride Carbon Dioxide BUN Creatinine Glucose POC Glucose 157 H 128 H Lactic Acid Calcium Ionized Calcium Phosphorus Magnesium Total Bilirubin AST ALT Alkaline Phosphatase Ammonia Total Creatine Kinase CK-MB (CK-2) CK-MB (CK-2) Rel Index Total Protein Albumin Urine WBC (Auto) Vancomycin Trough Salicylates Acetaminophen Plasma/Serum Alcohol Crossmatch 12/19/19 12/19/19 12/19/19 03:37 03:37 05:25 WBC 31.3 H RBC 2.60 L Hgb 7.6 L Hct 23.0 L MCH RDW 19.4 H Plt Count 530 H Lymph % (Auto) [place] % (Auto) [place] # Baso # Seg Neutrophils % Seg Neuts % (Manual) Lymphocytes % (Manual) Monocytes % (Manual) Seg Neutrophils # Seg Neutrophils # Man Lymphocytes # (Manual) Monocytes # (Manual) Eosinophils # (Manual) Basophils # (Manual) PT INR APTT ABG pH ABG pO2 ABG HCO3 ABG O2 Saturation ABG Base Excess ABG Hemoglobin Oxyhemoglobin Sodium Potassium Chloride Carbon Dioxide 18 L BUN 36 H Creatinine Glucose 111 H POC Glucose 123 H Lactic Acid Calcium Ionized Calcium Phosphorus Magnesium Total Bilirubin AST ALT Alkaline Phosphatase Ammonia Total Creatine Kinase CK-MB (CK-2) CK-MB (CK-2) Rel Index Total Protein Albumin Urine WBC (Auto) Vancomycin Trough Salicylates Acetaminophen Plasma/Serum Alcohol Crossmatch 12/19/19 12/19/19 12/20/19 12:59 18:33 00:00 WBC RBC Hgb Hct MCH RDW Plt Count Lymph % (Auto) [place] % (Auto) [place] # Baso # Seg Neutrophils % Seg Neuts % (Manual) Lymphocytes % (Manual) Monocytes % (Manual) Seg Neutrophils # Seg Neutrophils # Man Lymphocytes # (Manual) Monocytes # (Manual) Eosinophils # (Manual) Basophils # (Manual) PT INR APTT ABG pH ABG pO2 ABG HCO3 ABG O2 Saturation ABG Base Excess ABG Hemoglobin Oxyhemoglobin Sodium Potassium Chloride Carbon Dioxide BUN Creatinine Glucose POC Glucose 130 H 118 H 135 H Lactic Acid Calcium Ionized Calcium Phosphorus Magnesium Total Bilirubin AST ALT Alkaline Phosphatase Ammonia Total Creatine Kinase CK-MB (CK-2) CK-MB (CK-2) Rel Index Total Protein Albumin Urine WBC (Auto) Vancomycin Trough Salicylates Acetaminophen Plasma/Serum Alcohol Crossmatch 12/20/19 12/20/19 12/20/19 05:46 12:31 18:07 WBC RBC Hgb Hct MCH RDW Plt Count Lymph % (Auto) [place] % (Auto) [place] # Baso # Seg Neutrophils % Seg Neuts % (Manual) Lymphocytes % (Manual) Monocytes % (Manual) Seg Neutrophils # Seg Neutrophils # Man Lymphocytes # (Manual) Monocytes # (Manual) Eosinophils # (Manual) Basophils # (Manual) PT INR APTT ABG pH ABG pO2 ABG HCO3 ABG O2 Saturation ABG Base Excess ABG Hemoglobin Oxyhemoglobin Sodium Potassium Chloride Carbon Dioxide BUN Creatinine Glucose POC Glucose 131 H 128 H 134 H Lactic Acid Calcium Ionized Calcium Phosphorus Magnesium Total Bilirubin AST ALT Alkaline Phosphatase Ammonia Total Creatine Kinase CK-MB (CK-2) CK-MB (CK-2) Rel Index Total Protein Albumin Urine WBC (Auto) Vancomycin Trough Salicylates Acetaminophen Plasma/Serum Alcohol Crossmatch 12/21/19 12/21/19 12/21/19 03:28 03:28 07:21 WBC 29.4 H RBC 2.30 L Hgb 6.8 L Hct 20.2 L MCH RDW 20.2 H Plt Count 746 H Lymph % (Auto) [place] % (Auto) [place] # Baso # Seg Neutrophils % Seg Neuts % (Manual) 85.0 H Lymphocytes % (Manual) 8.0 L Monocytes % (Manual) Seg Neutrophils # Seg Neutrophils # Man 25.0 H Lymphocytes # (Manual) Monocytes # (Manual) 1.5 H Eosinophils # (Manual) 0.6 H Basophils # (Manual) PT INR APTT ABG pH ABG pO2 ABG HCO3 ABG O2 Saturation ABG Base Excess ABG Hemoglobin Oxyhemoglobin Sodium Potassium Chloride Carbon Dioxide 17 L BUN 57 H Creatinine 1.4 H D Glucose POC Glucose 124 H Lactic Acid Calcium Ionized Calcium Phosphorus Magnesium Total Bilirubin AST ALT Alkaline Phosphatase Ammonia Total Creatine Kinase CK-MB (CK-2) CK-MB (CK-2) Rel Index Total Protein Albumin Urine WBC (Auto) Vancomycin Trough Salicylates Acetaminophen Plasma/Serum Alcohol Crossmatch 12/21/19 12/21/19 12/21/19 08:56 12:06 14:53 WBC RBC Hgb 7.2 L Hct 22.9 L MCH RDW Plt Count Lymph % (Auto) [place] % (Auto) [place] # Baso # Seg Neutrophils % Seg Neuts % (Manual) Lymphocytes % (Manual) Monocytes % (Manual) Seg Neutrophils # Seg Neutrophils # Man Lymphocytes # (Manual) Monocytes # (Manual) Eosinophils # (Manual) Basophils # (Manual) PT INR APTT ABG pH ABG pO2 ABG HCO3 ABG O2 Saturation ABG Base Excess ABG Hemoglobin Oxyhemoglobin Sodium Potassium Chloride Carbon Dioxide BUN Creatinine Glucose POC Glucose 116 H Lactic Acid Calcium Ionized Calcium Phosphorus Magnesium Total Bilirubin AST ALT Alkaline Phosphatase Ammonia Total Creatine Kinase CK-MB (CK-2) CK-MB (CK-2) Rel Index Total Protein Albumin Urine WBC (Auto) Vancomycin Trough 33.8 H Salicylates Acetaminophen Plasma/Serum Alcohol Crossmatch 12/21/19 12/21/19 12/21/19 14:54 17:27 23:49 WBC RBC Hgb Hct MCH RDW Plt Count Lymph % (Auto) [place] % (Auto) [place] # Baso # Seg Neutrophils % Seg Neuts % (Manual) Lymphocytes % (Manual) Monocytes % (Manual) Seg Neutrophils # Seg Neutrophils # Man Lymphocytes # (Manual) Monocytes # (Manual) Eosinophils # (Manual) Basophils # (Manual) PT INR APTT ABG pH ABG pO2 ABG HCO3 ABG O2 Saturation ABG Base Excess ABG Hemoglobin Oxyhemoglobin Sodium Potassium Chloride Carbon Dioxide BUN Creatinine Glucose POC Glucose 145 H 127 H Lactic Acid Calcium Ionized Calcium Phosphorus Magnesium Total Bilirubin AST ALT Alkaline Phosphatase Ammonia Total Creatine Kinase CK-MB (CK-2) CK-MB (CK-2) Rel Index Total Protein Albumin Urine WBC (Auto) Vancomycin Trough Salicylates Acetaminophen Plasma/Serum Alcohol Crossmatch See Detail 12/22/19 12/22/19 12/22/19 04:43 05:56 08:40 WBC RBC Hgb Hct MCH RDW Plt Count Lymph % (Auto) [place] % (Auto) [place] # Baso # Seg Neutrophils % Seg Neuts % (Manual) Lymphocytes % (Manual) Monocytes % (Manual) Seg Neutrophils # Seg Neutrophils # Man Lymphocytes # (Manual) Monocytes # (Manual) Eosinophils # (Manual) Basophils # (Manual) PT INR APTT ABG pH ABG pO2 75.6 L ABG HCO3 ABG O2 Saturation ABG Base Excess -2.6 L ABG Hemoglobin 6.8 L Oxyhemoglobin 94.6 L Sodium Potassium Chloride Carbon Dioxide 17 L BUN 60 H Creatinine 1.4 H Glucose 126 H POC Glucose 153 H Lactic Acid Calcium Ionized Calcium Phosphorus Magnesium Total Bilirubin AST ALT Alkaline Phosphatase Ammonia Total Creatine Kinase CK-MB (CK-2) CK-MB (CK-2) Rel Index Total Protein Albumin Urine WBC (Auto) Vancomycin Trough Salicylates Acetaminophen Plasma/Serum Alcohol Crossmatch 12/22/19 12/22/19 12/23/19 12:07 17:49 04:30 WBC 22.4 H RBC 2.68 L Hgb 7.6 L Hct 22.9 L MCH RDW 19.9 H Plt Count 998 H Lymph % (Auto) [place] % (Auto) [place] # Baso # Seg Neutrophils % Seg Neuts % (Manual) 88.0 H Lymphocytes % (Manual) 2.0 L Monocytes % (Manual) 9.0 H Seg Neutrophils # Seg Neutrophils # Man 19.7 H Lymphocytes # (Manual) 0.4 L Monocytes # (Manual) 2.0 H Eosinophils # (Manual) Basophils # (Manual) PT INR APTT ABG pH ABG pO2 ABG HCO3 ABG O2 Saturation ABG Base Excess ABG Hemoglobin Oxyhemoglobin Sodium Potassium Chloride Carbon Dioxide BUN Creatinine Glucose POC Glucose 140 H 116 H Lactic Acid Calcium Ionized Calcium Phosphorus Magnesium Total Bilirubin AST ALT Alkaline Phosphatase Ammonia Total Creatine Kinase CK-MB (CK-2) CK-MB (CK-2) Rel Index Total Protein Albumin Urine WBC (Auto) Vancomycin Trough Salicylates Acetaminophen Plasma/Serum Alcohol Crossmatch 12/23/19 12/23/19 12/23/19 04:30 12:00 18:06 WBC RBC Hgb Hct MCH RDW Plt Count Lymph % (Auto) [place] % (Auto) [place] # Baso # Seg Neutrophils % Seg Neuts % (Manual) Lymphocytes % (Manual) Monocytes % (Manual) Seg Neutrophils # Seg Neutrophils # Man Lymphocytes # (Manual) Monocytes # (Manual) Eosinophils # (Manual) Basophils # (Manual) PT INR APTT ABG pH ABG pO2 ABG HCO3 ABG O2 Saturation ABG Base Excess ABG Hemoglobin Oxyhemoglobin Sodium Potassium 5.2 H Chloride Carbon Dioxide 21 L BUN 69 H Creatinine 1.5 H Glucose 117 H POC Glucose 128 H 138 H Lactic Acid Calcium Ionized Calcium Phosphorus Magnesium Total Bilirubin AST ALT Alkaline Phosphatase Ammonia Total Creatine Kinase CK-MB (CK-2) CK-MB (CK-2) Rel Index Total Protein Albumin Urine WBC (Auto) Vancomycin Trough Salicylates Acetaminophen Plasma/Serum Alcohol Crossmatch 12/23/19 12/24/19 12/24/19 23:46 04:31 05:08 WBC RBC Hgb Hct MCH RDW Plt Count Lymph % (Auto) [place] % (Auto) [place] # Baso # Seg Neutrophils % Seg Neuts % (Manual) Lymphocytes % (Manual) Monocytes % (Manual) Seg Neutrophils # Seg Neutrophils # Man Lymphocytes # (Manual) Monocytes # (Manual) Eosinophils # (Manual) Basophils # (Manual) PT INR APTT ABG pH ABG pO2 ABG HCO3 ABG O2 Saturation ABG Base Excess ABG Hemoglobin Oxyhemoglobin Sodium Potassium 5.3 H Chloride 107.6 H Carbon Dioxide 20 L BUN 72 H Creatinine 1.6 H Glucose 120 H POC Glucose 120 H 140 H Lactic Acid Calcium Ionized Calcium Phosphorus Magnesium Total Bilirubin AST ALT Alkaline Phosphatase Ammonia Total Creatine Kinase CK-MB (CK-2) CK-MB (CK-2) Rel Index Total Protein Albumin Urine WBC (Auto) Vancomycin Trough Salicylates Acetaminophen Plasma/Serum Alcohol Crossmatch 12/24/19 12/24/19 12/25/19 11:58 17:49 03:47 WBC 36.2 H RBC 2.92 L Hgb 8.4 L Hct 26.1 L MCH RDW 20.2 H Plt Count 942 H Lymph % (Auto) [place] % (Auto) [place] # Baso # Seg Neutrophils % Seg Neuts % (Manual) 97.5 H Lymphocytes % (Manual) 1.0 L Monocytes % (Manual) Seg Neutrophils # Seg Neutrophils # Man 35.3 H Lymphocytes # (Manual) 0.4 L Monocytes # (Manual) Eosinophils # (Manual) Basophils # (Manual) PT INR APTT ABG pH ABG pO2 ABG HCO3 ABG O2 Saturation ABG Base Excess ABG Hemoglobin Oxyhemoglobin Sodium Potassium Chloride Carbon Dioxide BUN Creatinine Glucose POC Glucose 146 H 131 H Lactic Acid Calcium Ionized Calcium Phosphorus Magnesium Total Bilirubin AST ALT Alkaline Phosphatase Ammonia Total Creatine Kinase CK-MB (CK-2) CK-MB (CK-2) Rel Index Total Protein Albumin Urine WBC (Auto) Vancomycin Trough Salicylates Acetaminophen Plasma/Serum Alcohol Crossmatch 12/25/19 12/25/19 12/25/19 03:47 05:30 12:23 WBC RBC Hgb Hct MCH RDW Plt Count Lymph % (Auto) [place] % (Auto) [place] # Baso # Seg Neutrophils % Seg Neuts % (Manual) Lymphocytes % (Manual) Monocytes % (Manual) Seg Neutrophils # Seg Neutrophils # Man Lymphocytes # (Manual) Monocytes # (Manual) Eosinophils # (Manual) Basophils # (Manual) PT INR APTT ABG pH ABG pO2 ABG HCO3 ABG O2 Saturation ABG Base Excess ABG Hemoglobin Oxyhemoglobin Sodium Potassium Chloride Carbon Dioxide 15 L BUN 70 H Creatinine 1.7 H Glucose 153 H POC Glucose 169 H 135 H Lactic Acid Calcium Ionized Calcium Phosphorus Magnesium Total Bilirubin AST ALT Alkaline Phosphatase Ammonia Total Creatine Kinase CK-MB (CK-2) CK-MB (CK-2) Rel Index Total Protein Albumin Urine WBC (Auto) Vancomycin Trough Salicylates Acetaminophen Plasma/Serum Alcohol Crossmatch 12/25/19 12/25/19 12/26/19 17:37 23:29 09:47 WBC 22.1 H RBC 2.83 L Hgb 7.9 L Hct 25.5 L MCH RDW 20.0 H Plt Count 894 H Lymph % (Auto) [place] % (Auto) [place] # Baso # Seg Neutrophils % Seg Neuts % (Manual) Lymphocytes % (Manual) Monocytes % (Manual) Seg Neutrophils # Seg Neutrophils # Man Lymphocytes # (Manual) Monocytes # (Manual) Eosinophils # (Manual) Basophils # (Manual) PT INR APTT ABG pH ABG pO2 ABG HCO3 ABG O2 Saturation ABG Base Excess ABG Hemoglobin Oxyhemoglobin Sodium Potassium Chloride Carbon Dioxide BUN Creatinine Glucose POC Glucose 120 H 140 H Lactic Acid Calcium Ionized Calcium Phosphorus Magnesium Total Bilirubin AST ALT Alkaline Phosphatase Ammonia Total Creatine Kinase CK-MB (CK-2) CK-MB (CK-2) Rel Index Total Protein Albumin Urine WBC (Auto) Vancomycin Trough Salicylates Acetaminophen Plasma/Serum Alcohol Crossmatch 12/26/19 12/26/19 12/26/19 09:47 11:46 17:52 WBC RBC Hgb Hct MCH RDW Plt Count Lymph % (Auto) [place] % (Auto) [place] # Baso # Seg Neutrophils % Seg Neuts % (Manual) Lymphocytes % (Manual) Monocytes % (Manual) Seg Neutrophils # Seg Neutrophils # Man Lymphocytes # (Manual) Monocytes # (Manual) Eosinophils # (Manual) Basophils # (Manual) PT INR APTT ABG pH ABG pO2 ABG HCO3 ABG O2 Saturation ABG Base Excess ABG Hemoglobin Oxyhemoglobin Sodium Potassium Chloride Carbon Dioxide 18 L BUN 65 H Creatinine 1.4 H Glucose 132 H POC Glucose 110 H 145 H Lactic Acid Calcium Ionized Calcium Phosphorus Magnesium Total Bilirubin AST ALT Alkaline Phosphatase Ammonia Total Creatine Kinase CK-MB (CK-2) CK-MB (CK-2) Rel Index Total Protein Albumin Urine WBC (Auto) Vancomycin Trough Salicylates Acetaminophen Plasma/Serum Alcohol Crossmatch 12/27/19 12/27/19 12/27/19 00:01 03:42 03:42 WBC 18.0 H RBC 2.86 L Hgb 8.0 L Hct 25.2 L MCH RDW 19.2 H Plt Count 873 H Lymph % (Auto) 8.4 L [place] % (Auto) 7.5 H [place] # 1.4 H Baso # 0.2 H Seg Neutrophils % 82.2 H Seg Neuts % (Manual) Lymphocytes % (Manual) Monocytes % (Manual) Seg Neutrophils # 14.8 H Seg Neutrophils # Man Lymphocytes # (Manual) Monocytes # (Manual) Eosinophils # (Manual) Basophils # (Manual) PT INR APTT ABG pH ABG pO2 ABG HCO3 ABG O2 Saturation ABG Base Excess ABG Hemoglobin Oxyhemoglobin Sodium Potassium Chloride Carbon Dioxide BUN 73 H Creatinine 1.4 H Glucose 119 H POC Glucose 124 H Lactic Acid Calcium Ionized Calcium Phosphorus Magnesium Total Bilirubin AST ALT Alkaline Phosphatase Ammonia Total Creatine Kinase CK-MB (CK-2) CK-MB (CK-2) Rel Index Total Protein Albumin Urine WBC (Auto) Vancomycin Trough Salicylates Acetaminophen Plasma/Serum Alcohol Crossmatch 12/27/19 12/27/19 12/27/19 05:45 11:45 17:29 WBC RBC Hgb Hct MCH RDW Plt Count Lymph % (Auto) [place] % (Auto) [place] # Baso # Seg Neutrophils % Seg Neuts % (Manual) Lymphocytes % (Manual) Monocytes % (Manual) Seg Neutrophils # Seg Neutrophils # Man Lymphocytes # (Manual) Monocytes # (Manual) Eosinophils # (Manual) Basophils # (Manual) PT INR APTT ABG pH ABG pO2 ABG HCO3 ABG O2 Saturation ABG Base Excess ABG Hemoglobin Oxyhemoglobin Sodium Potassium Chloride Carbon Dioxide BUN Creatinine Glucose POC Glucose 131 H 123 H 134 H Lactic Acid Calcium Ionized Calcium Phosphorus Magnesium Total Bilirubin AST ALT Alkaline Phosphatase Ammonia Total Creatine Kinase CK-MB (CK-2) CK-MB (CK-2) Rel Index Total Protein Albumin Urine WBC (Auto) Vancomycin Trough Salicylates Acetaminophen Plasma/Serum Alcohol Crossmatch 12/28/19 12/28/19 12/28/19 00:12 05:14 11:53 WBC RBC Hgb Hct MCH RDW Plt Count Lymph % (Auto) [place] % (Auto) [place] # Baso # Seg Neutrophils % Seg Neuts % (Manual) Lymphocytes % (Manual) Monocytes % (Manual) Seg Neutrophils # Seg Neutrophils # Man Lymphocytes # (Manual) Monocytes # (Manual) Eosinophils # (Manual) Basophils # (Manual) PT INR APTT ABG pH ABG pO2 ABG HCO3 ABG O2 Saturation ABG Base Excess ABG Hemoglobin Oxyhemoglobin Sodium Potassium Chloride Carbon Dioxide BUN Creatinine Glucose POC Glucose 138 H 130 H 146 H Lactic Acid Calcium Ionized Calcium Phosphorus Magnesium Total Bilirubin AST ALT Alkaline Phosphatase Ammonia Total Creatine Kinase CK-MB (CK-2) CK-MB (CK-2) Rel Index Total Protein Albumin Urine WBC (Auto) Vancomycin Trough Salicylates Acetaminophen Plasma/Serum Alcohol Crossmatch 12/28/19 12/29/19 12/29/19 17:39 00:01 18:11 WBC RBC Hgb Hct MCH RDW Plt Count Lymph % (Auto) [place] % (Auto) [place] # Baso # Seg Neutrophils % Seg Neuts % (Manual) Lymphocytes % (Manual) Monocytes % (Manual) Seg Neutrophils # Seg Neutrophils # Man Lymphocytes # (Manual) Monocytes # (Manual) Eosinophils # (Manual) Basophils # (Manual) PT INR APTT ABG pH ABG pO2 ABG HCO3 ABG O2 Saturation ABG Base Excess ABG Hemoglobin Oxyhemoglobin Sodium Potassium Chloride Carbon Dioxide BUN Creatinine Glucose POC Glucose 117 H 139 H 130 H Lactic Acid Calcium Ionized Calcium Phosphorus Magnesium Total Bilirubin AST ALT Alkaline Phosphatase Ammonia Total Creatine Kinase CK-MB (CK-2) CK-MB (CK-2) Rel Index Total Protein Albumin Urine WBC (Auto) Vancomycin Trough Salicylates Acetaminophen Plasma/Serum Alcohol Crossmatch 12/29/19 12/30/19 12/30/19 23:09 00:02 01:06 WBC 16.7 H RBC 2.91 L Hgb 8.2 L Hct 25.4 L MCH RDW 18.7 H Plt Count 708 H Lymph % (Auto) 9.4 L [place] % (Auto) [place] # 0.9 H Baso # Seg Neutrophils % 83.5 H Seg Neuts % (Manual) Lymphocytes % (Manual) Monocytes % (Manual) Seg Neutrophils # 14.0 H Seg Neutrophils # Man Lymphocytes # (Manual) Monocytes # (Manual) Eosinophils # (Manual) Basophils # (Manual) PT INR APTT ABG pH ABG pO2 ABG HCO3 ABG O2 Saturation ABG Base Excess ABG Hemoglobin Oxyhemoglobin Sodium Potassium Chloride Carbon Dioxide BUN Creatinine Glucose POC Glucose 120 H 114 H Lactic Acid Calcium Ionized Calcium Phosphorus Magnesium Total Bilirubin AST ALT Alkaline Phosphatase Ammonia Total Creatine Kinase CK-MB (CK-2) CK-MB (CK-2) Rel Index Total Protein Albumin Urine WBC (Auto) Vancomycin Trough Salicylates Acetaminophen Plasma/Serum Alcohol Crossmatch 12/30/19 12/30/19 12/30/19 01:06 04:23 05:18 WBC RBC Hgb Hct MCH RDW Plt Count Lymph % (Auto) [place] % (Auto) [place] # Baso # Seg Neutrophils % Seg Neuts % (Manual) Lymphocytes % (Manual) Monocytes % (Manual) Seg Neutrophils # Seg Neutrophils # Man Lymphocytes # (Manual) Monocytes # (Manual) Eosinophils # (Manual) Basophils # (Manual) PT INR APTT ABG pH ABG pO2 ABG HCO3 ABG O2 Saturation ABG Base Excess ABG Hemoglobin 8.3 L Oxyhemoglobin Sodium Potassium Chloride Carbon Dioxide BUN 70 H Creatinine Glucose 122 H POC Glucose 130 H Lactic Acid Calcium Ionized Calcium Phosphorus Magnesium Total Bilirubin AST ALT Alkaline Phosphatase Ammonia Total Creatine Kinase CK-MB (CK-2) CK-MB (CK-2) Rel Index Total Protein Albumin Urine WBC (Auto) Vancomycin Trough Salicylates Acetaminophen Plasma/Serum Alcohol Crossmatch 12/30/19 12/30/19 12/30/19 05:40 12:17 17:43 WBC RBC Hgb Hct MCH RDW Plt Count Lymph % (Auto) [place] % (Auto) [place] # Baso # Seg Neutrophils % Seg Neuts % (Manual) Lymphocytes % (Manual) Monocytes % (Manual) Seg Neutrophils # Seg Neutrophils # Man Lymphocytes # (Manual) Monocytes # (Manual) Eosinophils # (Manual) Basophils # (Manual) PT INR APTT ABG pH ABG pO2 ABG HCO3 ABG O2 Saturation ABG Base Excess ABG Hemoglobin Oxyhemoglobin Sodium Potassium Chloride Carbon Dioxide BUN Creatinine Glucose POC Glucose 135 H 132 H 118 H Lactic Acid Calcium Ionized Calcium Phosphorus Magnesium Total Bilirubin AST ALT Alkaline Phosphatase Ammonia Total Creatine Kinase CK-MB (CK-2) CK-MB (CK-2) Rel Index Total Protein Albumin Urine WBC (Auto) Vancomycin Trough Salicylates Acetaminophen Plasma/Serum Alcohol Crossmatch 12/30/19 12/31/19 12/31/19 23:29 05:19 17:50 WBC RBC Hgb Hct MCH RDW Plt Count Lymph % (Auto) [place] % (Auto) [place] # Baso # Seg Neutrophils % Seg Neuts % (Manual) Lymphocytes % (Manual) Monocytes % (Manual) Seg Neutrophils # Seg Neutrophils # Man Lymphocytes # (Manual) Monocytes # (Manual) Eosinophils # (Manual) Basophils # (Manual) PT INR APTT ABG pH ABG pO2 ABG HCO3 ABG O2 Saturation ABG Base Excess ABG Hemoglobin Oxyhemoglobin Sodium Potassium Chloride Carbon Dioxide BUN Creatinine Glucose POC Glucose 114 H 109 H 116 H Lactic Acid Calcium Ionized Calcium Phosphorus Magnesium Total Bilirubin AST ALT Alkaline Phosphatase Ammonia Total Creatine Kinase CK-MB (CK-2) CK-MB (CK-2) Rel Index Total Protein Albumin Urine WBC (Auto) Vancomycin Trough Salicylates Acetaminophen Plasma/Serum Alcohol Crossmatch 01/01/20 01/01/20 01/01/20 00:10 05:19 12:02 WBC RBC Hgb Hct MCH RDW Plt Count Lymph % (Auto) [place] % (Auto) [place] # Baso # Seg Neutrophils % Seg Neuts % (Manual) Lymphocytes % (Manual) Monocytes % (Manual) Seg Neutrophils # Seg Neutrophils # Man Lymphocytes # (Manual) Monocytes # (Manual) Eosinophils # (Manual) Basophils # (Manual) PT INR APTT ABG pH ABG pO2 ABG HCO3 ABG O2 Saturation ABG Base Excess ABG Hemoglobin Oxyhemoglobin Sodium Potassium Chloride Carbon Dioxide BUN Creatinine Glucose POC Glucose 131 H 122 H 136 H Lactic Acid Calcium Ionized Calcium Phosphorus Magnesium Total Bilirubin AST ALT Alkaline Phosphatase Ammonia Total Creatine Kinase CK-MB (CK-2) CK-MB (CK-2) Rel Index Total Protein Albumin Urine WBC (Auto) Vancomycin Trough Salicylates Acetaminophen Plasma/Serum Alcohol Crossmatch 01/02/20 01/02/20 01/02/20 00:24 05:36 11:41 WBC RBC Hgb Hct MCH RDW Plt Count Lymph % (Auto) [place] % (Auto) [place] # Baso # Seg Neutrophils % Seg Neuts % (Manual) Lymphocytes % (Manual) Monocytes % (Manual) Seg Neutrophils # Seg Neutrophils # Man Lymphocytes # (Manual) Monocytes # (Manual) Eosinophils # (Manual) Basophils # (Manual) PT INR APTT ABG pH ABG pO2 ABG HCO3 ABG O2 Saturation ABG Base Excess ABG Hemoglobin Oxyhemoglobin Sodium Potassium Chloride Carbon Dioxide BUN Creatinine Glucose POC Glucose 119 H 109 H 125 H Lactic Acid Calcium Ionized Calcium Phosphorus Magnesium Total Bilirubin AST ALT Alkaline Phosphatase Ammonia Total Creatine Kinase CK-MB (CK-2) CK-MB (CK-2) Rel Index Total Protein Albumin Urine WBC (Auto) Vancomycin Trough Salicylates Acetaminophen Plasma/Serum Alcohol Crossmatch 01/02/20 01/03/20 01/03/20 17:49 05:29 12:13 WBC RBC Hgb Hct MCH RDW Plt Count Lymph % (Auto) [place] % (Auto) [place] # Baso # Seg Neutrophils % Seg Neuts % (Manual) Lymphocytes % (Manual) Monocytes % (Manual) Seg Neutrophils # Seg Neutrophils # Man Lymphocytes # (Manual) Monocytes # (Manual) Eosinophils # (Manual) Basophils # (Manual) PT INR APTT ABG pH ABG pO2 ABG HCO3 ABG O2 Saturation ABG Base Excess ABG Hemoglobin Oxyhemoglobin Sodium Potassium Chloride Carbon Dioxide BUN Creatinine Glucose POC Glucose 130 H 132 H 113 H Lactic Acid Calcium Ionized Calcium Phosphorus Magnesium Total Bilirubin AST ALT Alkaline Phosphatase Ammonia Total Creatine Kinase CK-MB (CK-2) CK-MB (CK-2) Rel Index Total Protein Albumin Urine WBC (Auto) Vancomycin Trough Salicylates Acetaminophen Plasma/Serum Alcohol Crossmatch 01/03/20 01/04/20 01/04/20 17:32 00:19 05:26 WBC RBC Hgb Hct MCH RDW Plt Count Lymph % (Auto) [place] % (Auto) [place] # Baso # Seg Neutrophils % Seg Neuts % (Manual) Lymphocytes % (Manual) Monocytes % (Manual) Seg Neutrophils # Seg Neutrophils # Man Lymphocytes # (Manual) Monocytes # (Manual) Eosinophils # (Manual) Basophils # (Manual) PT INR APTT ABG pH ABG pO2 ABG HCO3 ABG O2 Saturation ABG Base Excess ABG Hemoglobin Oxyhemoglobin Sodium Potassium Chloride Carbon Dioxide BUN Creatinine Glucose POC Glucose 127 H 141 H 129 H Lactic Acid Calcium Ionized Calcium Phosphorus Magnesium Total Bilirubin AST ALT Alkaline Phosphatase Ammonia Total Creatine Kinase CK-MB (CK-2) CK-MB (CK-2) Rel Index Total Protein Albumin Urine WBC (Auto) Vancomycin Trough Salicylates Acetaminophen Plasma/Serum Alcohol Crossmatch 01/04/20 01/04/20 01/05/20 11:39 17:29 05:22 WBC RBC Hgb Hct MCH RDW Plt Count Lymph % (Auto) [place] % (Auto) [place] # Baso # Seg Neutrophils % Seg Neuts % (Manual) Lymphocytes % (Manual) Monocytes % (Manual) Seg Neutrophils # Seg Neutrophils # Man Lymphocytes # (Manual) Monocytes # (Manual) Eosinophils # (Manual) Basophils # (Manual) PT INR APTT ABG pH ABG pO2 ABG HCO3 ABG O2 Saturation ABG Base Excess ABG Hemoglobin Oxyhemoglobin Sodium Potassium Chloride Carbon Dioxide BUN Creatinine Glucose POC Glucose 167 H 132 H 121 H Lactic Acid Calcium Ionized Calcium Phosphorus Magnesium Total Bilirubin AST ALT Alkaline Phosphatase Ammonia Total Creatine Kinase CK-MB (CK-2) CK-MB (CK-2) Rel Index Total Protein Albumin Urine WBC (Auto) Vancomycin Trough Salicylates Acetaminophen Plasma/Serum Alcohol Crossmatch 01/05/20 01/05/20 01/05/20 12:25 17:40 18:06 WBC RBC Hgb Hct MCH RDW Plt Count Lymph % (Auto) [place] % (Auto) [place] # Baso # Seg Neutrophils % Seg Neuts % (Manual) Lymphocytes % (Manual) Monocytes % (Manual) Seg Neutrophils # Seg Neutrophils # Man Lymphocytes # (Manual) Monocytes # (Manual) Eosinophils # (Manual) Basophils # (Manual) PT INR APTT ABG pH 7.472 H ABG pO2 99.2 H ABG HCO3 ABG O2 Saturation ABG Base Excess ABG Hemoglobin 7.8 L Oxyhemoglobin Sodium Potassium Chloride Carbon Dioxide BUN Creatinine Glucose POC Glucose 106 H 110 H Lactic Acid Calcium Ionized Calcium Phosphorus Magnesium Total Bilirubin AST ALT Alkaline Phosphatase Ammonia Total Creatine Kinase CK-MB (CK-2) CK-MB (CK-2) Rel Index Total Protein Albumin Urine WBC (Auto) Vancomycin Trough Salicylates Acetaminophen Plasma/Serum Alcohol Crossmatch 01/06/20 01/06/20 01/06/20 00:11 05:16 11:30 WBC RBC Hgb Hct MCH RDW Plt Count Lymph % (Auto) [place] % (Auto) [place] # Baso # Seg Neutrophils % Seg Neuts % (Manual) Lymphocytes % (Manual) Monocytes % (Manual) Seg Neutrophils # Seg Neutrophils # Man Lymphocytes # (Manual) Monocytes # (Manual) Eosinophils # (Manual) Basophils # (Manual) PT INR APTT ABG pH ABG pO2 ABG HCO3 ABG O2 Saturation ABG Base Excess ABG Hemoglobin Oxyhemoglobin Sodium Potassium Chloride Carbon Dioxide BUN Creatinine Glucose POC Glucose 108 H 124 H 125 H Lactic Acid Calcium Ionized Calcium Phosphorus Magnesium Total Bilirubin AST ALT Alkaline Phosphatase Ammonia Total Creatine Kinase CK-MB (CK-2) CK-MB (CK-2) Rel Index Total Protein Albumin Urine WBC (Auto) Vancomycin Trough Salicylates Acetaminophen Plasma/Serum Alcohol Crossmatch 01/06/20 01/06/20 01/07/20 17:53 23:51 04:12 WBC 16.5 H RBC 3.29 L Hgb 9.3 L Hct 28.1 L MCH RDW 18.2 H Plt Count 526 H Lymph % (Auto) 8.4 L [place] % (Auto) [place] # 1.0 H Baso # Seg Neutrophils % 84.4 H Seg Neuts % (Manual) Lymphocytes % (Manual) Monocytes % (Manual) Seg Neutrophils # 13.9 H Seg Neutrophils # Man Lymphocytes # (Manual) Monocytes # (Manual) Eosinophils # (Manual) Basophils # (Manual) PT INR APTT ABG pH ABG pO2 ABG HCO3 ABG O2 Saturation ABG Base Excess ABG Hemoglobin Oxyhemoglobin Sodium Potassium Chloride Carbon Dioxide BUN Creatinine Glucose POC Glucose 166 H 128 H Lactic Acid Calcium Ionized Calcium Phosphorus Magnesium Total Bilirubin AST ALT Alkaline Phosphatase Ammonia Total Creatine Kinase CK-MB (CK-2) CK-MB (CK-2) Rel Index Total Protein Albumin Urine WBC (Auto) Vancomycin Trough Salicylates Acetaminophen Plasma/Serum Alcohol Crossmatch 01/07/20 01/07/20 01/07/20 04:12 04:45 11:51 WBC RBC Hgb Hct MCH RDW Plt Count Lymph % (Auto) [place] % (Auto) [place] # Baso # Seg Neutrophils % Seg Neuts % (Manual) Lymphocytes % (Manual) Monocytes % (Manual) Seg Neutrophils # Seg Neutrophils # Man Lymphocytes # (Manual) Monocytes # (Manual) Eosinophils # (Manual) Basophils # (Manual) PT INR APTT ABG pH ABG pO2 ABG HCO3 ABG O2 Saturation ABG Base Excess ABG Hemoglobin Oxyhemoglobin Sodium 136 L Potassium Chloride Carbon Dioxide 21 L BUN 44 H Creatinine 0.6 L Glucose 124 H POC Glucose 134 H 138 H Lactic Acid Calcium Ionized Calcium Phosphorus Magnesium Total Bilirubin AST ALT Alkaline Phosphatase Ammonia Total Creatine Kinase CK-MB (CK-2) CK-MB (CK-2) Rel Index Total Protein Albumin Urine WBC (Auto) Vancomycin Trough Salicylates Acetaminophen Plasma/Serum Alcohol Crossmatch 01/07/20 01/08/20 01/08/20 17:36 00:33 05:29 WBC RBC Hgb Hct MCH RDW Plt Count Lymph % (Auto) Henderson % (Auto) Henderson # Baso # Seg Neutrophils % Seg Neuts % (Manual) Lymphocytes % (Manual) Monocytes % (Manual) Seg Neutrophils # Seg Neutrophils # Man Lymphocytes # (Manual) Monocytes # (Manual) Eosinophils # (Manual) Basophils # (Manual) PT INR APTT ABG pH ABG pO2 ABG HCO3 ABG O2 Saturation ABG Base Excess ABG Hemoglobin Oxyhemoglobin Sodium Potassium Chloride Carbon Dioxide BUN Creatinine Glucose POC Glucose 128 H 119 H 124 H Lactic Acid Calcium Ionized Calcium Phosphorus Magnesium Total Bilirubin AST ALT Alkaline Phosphatase Ammonia Total Creatine Kinase CK-MB (CK-2) CK-MB (CK-2) Rel Index Total Protein Albumin Urine WBC (Auto) Vancomycin Trough Salicylates Acetaminophen Plasma/Serum Alcohol Crossmatch 01/08/20 01/08/20 01/08/20 12:51 20:25 23:22 WBC RBC Hgb Hct MCH RDW Plt Count Lymph % (Auto) Henderson % (Auto) Henderson # Baso # Seg Neutrophils % Seg Neuts % (Manual) Lymphocytes % (Manual) Monocytes % (Manual) Seg Neutrophils # Seg Neutrophils # Man Lymphocytes # (Manual) Monocytes # (Manual) Eosinophils # (Manual) Basophils # (Manual) PT INR APTT ABG pH ABG pO2 132.2 H ABG HCO3 ABG O2 Saturation ABG Base Excess ABG Hemoglobin Oxyhemoglobin Sodium Potassium Chloride Carbon Dioxide BUN Creatinine Glucose POC Glucose 128 H 127 H Lactic Acid Calcium Ionized Calcium Phosphorus Magnesium Total Bilirubin AST ALT Alkaline Phosphatase Ammonia Total Creatine Kinase CK-MB (CK-2) CK-MB (CK-2) Rel Index Total Protein Albumin Urine WBC (Auto) Vancomycin Trough Salicylates Acetaminophen Plasma/Serum Alcohol Crossmatch 01/09/20 01/09/20 05:48 08:51 WBC RBC Hgb Hct MCH RDW Plt Count Lymph % (Auto) Henderson % (Auto) Henderson # Baso # Seg Neutrophils % Seg Neuts % (Manual) Lymphocytes % (Manual) Monocytes % (Manual) Seg Neutrophils # Seg Neutrophils # Man Lymphocytes # (Manual) Monocytes # (Manual) Eosinophils # (Manual) Basophils # (Manual) PT INR APTT ABG pH ABG pO2 94.3 H ABG HCO3 ABG O2 Saturation ABG Base Excess ABG Hemoglobin 9.5 L Oxyhemoglobin Sodium Potassium Chloride Carbon Dioxide BUN Creatinine Glucose POC Glucose 120 H Lactic Acid Calcium Ionized Calcium Phosphorus Magnesium Total Bilirubin AST ALT Alkaline Phosphatase Ammonia Total Creatine Kinase CK-MB (CK-2) CK-MB (CK-2) Rel Index Total Protein Albumin Urine WBC (Auto) Vancomycin Trough Salicylates Acetaminophen Plasma/Serum Alcohol Crossmatch Allied health notes reviewed: RT
--- NOTE | 2020-01-09 12:34 | Progress Note ---
Assessment and Plan / Anoxic brain injury: suspected CT head: No acute abnormality. neurology consult placed, EEG ordered showed Generalized slowing. No seizures or epileptiform activity. Per neurology : Patient found to have intact corneal/VOR/cough reflexes, and is withdrawing lower extremities, therefore patient is not found to be brain . However, given that patient had an out of hospital cardiac arrest, [facility], the likelihood of meaningful neurological recovery is somewhat low. -Patient now opening her eyes and able to follow any command by nodding head /Acute Respiratory failure -s/p intubation, s/p trach and PEG on 12/12 with mechanical ventilation - CTA was done and negative for PE, - Echo quality is poor, showed diastolic dysfunction - continue ICU monitoring - wean OFF O2/vent as tolerated, placed on T-piece but not tolerating /Anemia, microcytic -Continue to hold heparin, transfused 2 units of packed RBC -ordered stool for occult blood - pending /Acute metabolic encephalopathy/toxic encephalopathy due to the above - cont supportive care /Hyperammonemia - likely from liver disease related to EtOH abuse - Patient had elevated ammonia level and treated with lactulose /Metabolic Acidosis -Alcohol ketoacidosis vs hypoprofusion -Continue to monitor /ELevated LFTs, stable now - due to ischemic hepatitis. /Leucocytosis with sepsis - Source MRSA bacteremia and MSSA pneumonia. UA showed pyuria. RUQ US showed no ascites. - Repeat TTE negative for vegetation. Completed 7 days of Ceftriaxone on 11/29/2019. -Treated with Abx vancomycin 1 gm IV q 12 hour total 2 week till 12/30/2019 /MSSA pneumonia: Status post vancomycin till 12/30/2019 /ALcohol USe Disorder - given ongoing Alcohol use almost daily, s/p IV Thiamine - monitor /Severe hypokalemia -Repleted /Seizure disorder: treat with Keppra /H. Influenzae, tracheobronchitis, treated with abx DNR CODE STATUS The high probability of a clinically significant, sudden or life threatening deterioration of the [neurology,respiratory] system(s) required my full and direct attention, intervention and personal management. The aggregate critical care time was [32] minutes. This time is in addition to time spent performing reported procedures but includes the following: [x] Data Review and interpretation [x] Patient assessment and monitoring of vital signs [x] Documentation [x] Medication orders and management Disposition: prognosis guarded. Family okay for DNR, placement pending 12/31/19: still intubated via trach, no restraints needed, FiO2 30%, PEEP 6, Difficulty getting to Hospice, mother wants to kept updated. Patient has 4 kids, 2 sons in shelter, 1 son is transgender and not involved per mother; Daughter is Deborah who is [employer] 01/01/20: Still intubated, but patient opening her eyes but does not follow any command. Unable to set up inpatient hospice 01/01 pending placement, patient is self funded 01/02 pending placement, patient is self funded 01/03 pending placement, patient is self funded. still on vent. updated patient's mother 01/04 pending placement, patient is self funded. still on vent. 01/05 pending placement, patient is tolerating T-piece trial today -off vent. 01/06 patient getting T-piece trial daily, need placement. Patient is unfunded 01/08: Pt opened for 24 hours and tolerating T-piece with 8 L O2. Patient is unfunded and unable to find a placement. Family is refusing to accept the patient at home with home hospice. Brief History: 54-year-old female with a past medical history of Hypertension, Depression, Tobacco use Disorder, Alcohol use Disorder as confirmed by Daughter and pt's mother presents to the hospital status post cardiac arrest at home. EMS found pt in [place]. They were unable to intubate patient with a ET tube because she was clenching down therefore Joe airway placed. Per the ED physician who evaluated pt, Patient presented with a pulse, intermittent respirations, and bagging support via Joe airway with O2 sat of 100%. Accu-Chek of 71 obtained by EMS. She was intubated in the ER and called for admission. Following admission patient was diagnosed with anoxic brain injury, sepsis with MRSA bacteremia and MSSA pneumonia, alcoholic liver disease. Family member initially wished for full code then changed to DNR, patient treated with IV antibiotics for sepsis, status post trach and PEG on 12/13/19. Weaned off from the vent and put on T- piece. Patient is uninsured, waiting for placement, guarded prognosis. Physical exam: General appearance: Present: other (elderly female, open eyes) - EENT Eyes: no scleral icterus, no conjunctival injection, pupil not reactive ENT: clear oral mucosa, dentition normal, no oropharyngeal erythema Ears: bilateral: normal - Neck Neck: trach on place - Respiratory Respiratory effort: other (on T-piece) Respiratory: bilateral: rales - Cardiovascular Rhythm: regular Heart Sounds: Present: S1 & S2. Absent: gallop, rub Extremities: pulses intact, No edema, normal color - Gastrointestinal General gastrointestinal: Present: soft, non-tender, non-distended, normal bowel sounds - Integumentary Integumentary: clear, warm, dry - Musculoskeletal Musculoskeletal: No joint swelling or tenderness - Neurologic Neurologic: other (2+ reflexes throughout). respond to commend and nods head. Moves only right hand - Psychiatric Psychiatric: Unable to assess Subjective Date of service: 01/09/20 Principal diagnosis: Ac cardiopulmonary arrest; Ac hypoxemic resp failure; Acute encephalopathy Interval history: Patient seen and examined Can open her eyes, patient now DNR Discussed with RN at bedside, discussed with case resource manager for disposition planning patient tolerating t-piece Tolerating tube feeding with PEG tube, needs placement/hospice - uninsured Objective - Constitutional Vitals: Vital Signs - 12hr 01/09/20 01/09/20 01/09/20 01:00 02:00 03:00 Temperature Pulse Rate 94 H 92 H 112 H Pulse Rate [ From Monitor] Pulse Rate [ Right Dorsalis Pedis] Respiratory 20 21 28 H Rate Blood Pressure 124/80 137/91 129/84 O2 Sat by Pulse 100 100 100 Oximetry O2 Sat by Pulse Oximetry [ Assessment] 01/09/20 01/09/20 01/09/20 04:00 04:51 05:00 Temperature 96.6 F L Pulse Rate 101 H 98 H Pulse Rate [ 105 H From Monitor] Pulse Rate [ 105 H Right Dorsalis Pedis] Respiratory 23 23 Rate Blood Pressure 142/85 132/86 O2 Sat by Pulse 100 100 100 Oximetry O2 Sat by Pulse Oximetry [ Assessment] 01/09/20 01/09/20 01/09/20 06:01 07:00 08:00 Temperature 97.8 F Pulse Rate 102 H 103 H Pulse Rate [ From Monitor] Pulse Rate [ Right Dorsalis Pedis] Respiratory 26 H 24 Rate Blood Pressure 143/93 142/94 O2 Sat by Pulse 100 100 Oximetry O2 Sat by Pulse Oximetry [ Assessment] 04/22/20 04/22/20 04/22/20 08:01 08:20 09:24 Temperature Pulse Rate 106 H Pulse Rate [ From Monitor] Pulse Rate [ Right Dorsalis Pedis] Respiratory 27 H Rate Blood Pressure 133/59 O2 Sat by Pulse 100 100 Oximetry O2 Sat by Pulse 99 Oximetry [ Assessment] 01/09/20 01/09/20 11:24 12:00 Temperature 97.8 F Pulse Rate Pulse Rate [ From Monitor] Pulse Rate [ Right Dorsalis Pedis] Respiratory Rate Blood Pressure O2 Sat by Pulse 100 Oximetry O2 Sat by Pulse Oximetry [ Assessment] - Labs CBC & Chem 7: 01/07/20 04:12 01/07/20 04:12 Labs: Abnormal lab results 01/08/20 01/08/20 01/08/20 Range/Units 12:51 20:25 23:22 ABG pO2 132.2 H (80.0-90.0) mm Hg ABG Hemoglobin (12.0-16.0) gm/dl POC Glucose 128 H 127 H (70-105) 01/09/20 01/09/20 01/09/20 Range/Units 05:48 08:51 11:29 ABG pO2 94.3 H (80.0-90.0) mm Hg ABG Hemoglobin 9.5 L (12.0-16.0) gm/dl POC Glucose 120 H 112 H (70-105)
[2020-01-09] MEDS: ACETAMINOPHEN 325 MG/10.15 ML ORAL LIQD UNIT DOSE FEEDTUBE PRN (22:17)
[2020-01-09] MEDS: QUEtiapine 100 MG TAB FEEDTUBE SCH (22:17)
[2020-01-10] MEDS: SERTRALINE 50 MG TAB PO SCH (09:15)
[2020-01-10] MEDS: TAMSULOSIN 0.4 MG CAP PO SCH (09:15)
[2020-01-10] MEDS: levETIRAcetam 500 MG/5 ML ORAL LIQD PO SCH ×2 (09:15→23:29)
[2020-01-10] MEDS: GLYCOPYRROLATE 1 MG TAB PO SCH ×3 (09:15→21:07)
[2020-01-10] MEDS: LANSOPRAZOLE 30 MG SOLUTAB FEEDTUBE SCH (09:15)
[2020-01-10] MEDS: hydrOXYzine PAMOATE 25 MG CAP PO SCH ×2 (09:16→23:30)
[2020-01-10] MEDS: MIRTAZAPINE 30 MG TAB PO SCH (09:17)
--- NOTE | 2020-01-10 14:02 | Progress Note ---
Assessment and Plan Acute cardiopulmonary arrest with ROSC Acute hypoxemic respiratory failure on MVS Acute metabolic-toxic encephalopathy Metabolic acidosis/alcoholic acidosis/Lactic acidosis Ischemic hepatitis Leucocytosis with lactic acidosis Tobacco use disorder ALcohol use Disorder Hypokalemia High grade fevers - downsize trach soon - continue RTC T-piece trials as tolerated - no new issues; continue care as below otherwise - repeat CXR prn at this point - Continue to wean supplemental oxygen for target O2 sat's > 90% - continue bronchodilators with routine trach care and pulmonary hygiene per RT - Slow Seroquel taper - consider Provigil - s/p Antibiotics per ID recommendations - continue Reglan for G.I. motility - Continue VTE and Stress ulcer prophylaxis - Continue enteric nutritional support - Monitor glycemic control, with target blood glucose 140-180 mg/dL while critically ill (Avoid hypoglycemia) - ABG and CXR prn - Continue to avoid nephrotoxins, adjust all medications fro GFR and CrCL - Continue to avoid benzodiazepines , as much as possible, to reduce the possibility of delirium - Continue prn analgesia per CPOT score - Continue to maintain of sleep-wake cycle, avoid delirium - PT/OT/ROM exercises- awaiting PT/OT evaluation - Continue mobility protocol and skin assessment per protocol for pressure ulcer prevention - Continue to monitor for clinical seizures - Continue Nicotine withdrawal precautions, alcohol withdrawal precautions - continue other care per attending / other consultants ..... re-evaluate in am & prn CONDITION: FAIR PROGNOSIS: IMPROVED CODE STATUS: FULL CODE Subjective Date of service: 01/10/20 Principal diagnosis: Ac cardiopulmonary arrest; Ac hypoxemic resp failure; Acute encephalopathy Interval history: Patient is seen today for: Acute cardiopulmonary arrest with ROSC; Acute hypoxemic respiratory failure; Acute metabolic-toxic encephalopathy; Ischemic hepatitis; Leucocytosis with lactic acidosis; Tobacco use disorder; Alcohol use Disorder; Hypokalemia; High grade fevers Seen and examined at bedside; 24hour events reviewed; nursing and respiratory care staff consulted; no adverse overnight events reported to me; resting peacefully in bed; remains off MVS and transferred to [facility]; following simple prompts; no emesis or overt aspiration; still somewhat lethargic / weak Objective Vital Signs - 12hr 01/10/20 01/10/20 01/10/20 03:00 03:10 03:29 Temperature Pulse Rate 114 H Pulse Rate [ 112 H From Monitor] Respiratory 28 H 25 H Rate Blood Pressure 159/107 O2 Sat by Pulse 100 99 Oximetry O2 Sat by Pulse 100 Oximetry [ Assessment] 01/10/20 01/10/20 01/10/20 04:00 05:00 06:00 Temperature 98.8 F Pulse Rate 111 H 107 H 101 H Pulse Rate [ From Monitor] Respiratory 25 H 23 21 Rate Blood Pressure 134/98 142/91 124/76 O2 Sat by Pulse 100 100 100 Oximetry O2 Sat by Pulse Oximetry [ Assessment] 01/10/20 01/10/20 01/10/20 07:00 08:00 08:01 Temperature 97.9 F Pulse Rate 109 H 112 H Pulse Rate [ From Monitor] Respiratory 27 H 26 H Rate Blood Pressure 132/79 132/80 O2 Sat by Pulse 99 100 Oximetry O2 Sat by Pulse Oximetry [ Assessment] 01/10/20 01/10/20 01/10/20 09:00 10:00 11:00 Temperature Pulse Rate 109 H 96 H 111 H Pulse Rate [ From Monitor] Respiratory 27 H 23 20 Rate Blood Pressure 129/83 120/76 128/76 O2 Sat by Pulse 100 100 100 Oximetry O2 Sat by Pulse Oximetry [ Assessment] 01/10/20 01/10/20 12:00 13:00 Temperature Pulse Rate 105 H 112 H Pulse Rate [ From Monitor] Respiratory 24 21 Rate Blood Pressure 123/77 123/77 O2 Sat by Pulse 100 100 Oximetry O2 Sat by Pulse Oximetry [ Assessment] Constitutional: no acute distress, other (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, with midline tracheostomy and mild dys-synchrony) Eyes: non-icteric ENT: oropharynx moist, other (s/p trach) Neck: supple, no lymphadenopathy, no JVD Effort: mildly labored Ascultation: Bilateral: diminished breath sounds, rhonchi Percussion: Bilateral: not dull Cardiovascular: regular rate and rhythm (tachycardia), other (S1,S2) Gastrointestinal: normoactive bowel sounds, soft, non-tender, non-distended Integumentary: normal Extremities: no cyanosis, no edema, pulses normal, no ischemia or petechiae Neurologic: other (awake; folowing simple commands) Psychiatric: other (Psychiatric: Unable to assess re: AMS) CBC and BMP: 01/11/20 07:00 01/11/20 07:00 ABG, PT/INR, D-dimer: ABG ABG pH 7.429 pH Units (7.350-7.450) 01/09/20 08:51 ABG pCO2 39.1 mm Hg 01/09/20 08:51 ABG pO2 94.3 mm Hg (80.0-90.0) H 01/09/20 08:51 ABG O2 Saturation 97.4 % (95.0-99.0) 01/09/20 08:51 PT/INR, D-dimer PT 17.0 Sec. (12.2-14.9) H 11/23/19 03:47 INR 1.36 (0.87-1.13) H 11/23/19 03:47 Abnormal lab findings: Abnormal Labs 11/22/19 11/22/19 11/22/19 23:17 23:18 23:27 WBC 21.2 H RBC 3.59 L Hgb 9.8 L Hct MCH 27 L RDW 18.6 H Plt Count 454 H Lymph % (Auto) [place] % (Auto) [place] # Baso # Seg Neutrophils % Seg Neuts % (Manual) 86.0 H Lymphocytes % (Manual) 9.0 L Monocytes % (Manual) Seg Neutrophils # Seg Neutrophils # Man 18.2 H Lymphocytes # (Manual) Monocytes # (Manual) 1.1 H Eosinophils # (Manual) Basophils # (Manual) PT INR APTT ABG pH ABG pO2 ABG HCO3 ABG O2 Saturation ABG Base Excess ABG Hemoglobin Oxyhemoglobin Sodium Potassium Chloride Carbon Dioxide BUN Creatinine Glucose POC Glucose 53 L Lactic Acid Calcium Ionized Calcium Phosphorus Magnesium Total Bilirubin AST ALT Alkaline Phosphatase Ammonia Total Creatine Kinase CK-MB (CK-2) CK-MB (CK-2) Rel Index Total Protein Albumin Urine WBC (Auto) 40.0 H Vancomycin Trough Salicylates Acetaminophen Plasma/Serum Alcohol Crossmatch 11/22/19 11/22/19 11/22/19 23:27 23:27 23:27 WBC RBC Hgb Hct MCH RDW Plt Count Lymph % (Auto) [place] % (Auto) [place] # Baso # Seg Neutrophils % Seg Neuts % (Manual) Lymphocytes % (Manual) Monocytes % (Manual) Seg Neutrophils # Seg Neutrophils # Man Lymphocytes # (Manual) Monocytes # (Manual) Eosinophils # (Manual) Basophils # (Manual) PT INR APTT ABG pH ABG pO2 ABG HCO3 ABG O2 Saturation ABG Base Excess ABG Hemoglobin Oxyhemoglobin Sodium Potassium 2.4 L* Chloride 85.1 L Carbon Dioxide 19 L BUN Creatinine 0.5 L Glucose 261 H POC Glucose Lactic Acid Calcium Ionized Calcium Phosphorus Magnesium Total Bilirubin AST 609 H ALT 152 H Alkaline Phosphatase 160 H Ammonia 117.0 H Total Creatine Kinase 139 H CK-MB (CK-2) 8.3 H CK-MB (CK-2) Rel Index 5.9 H Total Protein Albumin 3.6 L Urine WBC (Auto) Vancomycin Trough Salicylates < 0.3 L Acetaminophen Plasma/Serum Alcohol Crossmatch 11/22/19 11/22/19 11/23/19 23:27 23:27 01:10 WBC RBC Hgb Hct MCH RDW Plt Count Lymph % (Auto) [place] % (Auto) [place] # Baso # Seg Neutrophils % Seg Neuts % (Manual) Lymphocytes % (Manual) Monocytes % (Manual) Seg Neutrophils # Seg Neutrophils # Man Lymphocytes # (Manual) Monocytes # (Manual) Eosinophils # (Manual) Basophils # (Manual) PT INR APTT ABG pH 7.273 L ABG pO2 209.7 H ABG HCO3 ABG O2 Saturation 99.2 H ABG Base Excess -3.9 L ABG Hemoglobin 10.6 L Oxyhemoglobin 93.9 L Sodium Potassium Chloride Carbon Dioxide BUN Creatinine Glucose POC Glucose Lactic Acid Calcium Ionized Calcium Phosphorus Magnesium Total Bilirubin AST ALT Alkaline Phosphatase Ammonia Total Creatine Kinase CK-MB (CK-2) CK-MB (CK-2) Rel Index Total Protein Albumin Urine WBC (Auto) Vancomycin Trough Salicylates Acetaminophen < 5.0 L Plasma/Serum Alcohol 0.08 H Crossmatch 11/23/19 11/23/19 11/23/19 01:19 01:19 03:47 WBC RBC Hgb Hct MCH RDW Plt Count Lymph % (Auto) [place] % (Auto) [place] # Baso # Seg Neutrophils % Seg Neuts % (Manual) Lymphocytes % (Manual) Monocytes % (Manual) Seg Neutrophils # Seg Neutrophils # Man Lymphocytes # (Manual) Monocytes # (Manual) Eosinophils # (Manual) Basophils # (Manual) PT 16.3 H INR 1.29 H APTT ABG pH ABG pO2 ABG HCO3 ABG O2 Saturation ABG Base Excess ABG Hemoglobin Oxyhemoglobin Sodium Potassium Chloride Carbon Dioxide BUN Creatinine Glucose POC Glucose Lactic Acid 2.10 H* 5.00 H* Calcium Ionized Calcium Phosphorus Magnesium Total Bilirubin AST ALT Alkaline Phosphatase Ammonia Total Creatine Kinase CK-MB (CK-2) CK-MB (CK-2) Rel Index Total Protein Albumin Urine WBC (Auto) Vancomycin Trough Salicylates Acetaminophen Plasma/Serum Alcohol Crossmatch 11/23/19 11/23/19 11/23/19 03:47 03:47 04:53 WBC RBC Hgb 9.4 L Hct MCH RDW Plt Count Lymph % (Auto) [place] % (Auto) [place] # Baso # Seg Neutrophils % Seg Neuts % (Manual) Lymphocytes % (Manual) Monocytes % (Manual) Seg Neutrophils # Seg Neutrophils # Man Lymphocytes # (Manual) Monocytes # (Manual) Eosinophils # (Manual) Basophils # (Manual) PT 17.0 H INR 1.36 H APTT 128.2 H* ABG pH ABG pO2 ABG HCO3 ABG O2 Saturation ABG Base Excess ABG Hemoglobin Oxyhemoglobin Sodium Potassium Chloride Carbon Dioxide 18 L BUN Creatinine 0.5 L Glucose 105 H POC Glucose Lactic Acid Calcium 8.3 L Ionized Calcium Phosphorus 2.40 L Magnesium Total Bilirubin 1.30 H AST 761 H ALT 158 H Alkaline Phosphatase 143 H Ammonia Total Creatine Kinase CK-MB (CK-2) CK-MB (CK-2) Rel Index Total Protein Albumin 2.8 L Urine WBC (Auto) Vancomycin Trough Salicylates Acetaminophen Plasma/Serum Alcohol Crossmatch 11/23/19 11/23/19 11/23/19 05:12 06:32 06:32 WBC 16.8 H RBC 3.31 L Hgb 8.9 L Hct 28.7 L MCH 27 L RDW 18.6 H Plt Count Lymph % (Auto) [place] % (Auto) [place] # Baso # Seg Neutrophils % Seg Neuts % (Manual) 94.0 H Lymphocytes % (Manual) 1.0 L Monocytes % (Manual) Seg Neutrophils # Seg Neutrophils # Man 15.8 H Lymphocytes # (Manual) 0.2 L Monocytes # (Manual) Eosinophils # (Manual) Basophils # (Manual) PT INR APTT ABG pH ABG pO2 ABG HCO3 ABG O2 Saturation ABG Base Excess -3.2 L ABG Hemoglobin 9.0 L Oxyhemoglobin 93.6 L Sodium Potassium Chloride Carbon Dioxide BUN Creatinine Glucose POC Glucose Lactic Acid Calcium Ionized Calcium 4.5 L Phosphorus Magnesium Total Bilirubin AST ALT Alkaline Phosphatase Ammonia Total Creatine Kinase CK-MB (CK-2) CK-MB (CK-2) Rel Index Total Protein Albumin Urine WBC (Auto) Vancomycin Trough Salicylates Acetaminophen Plasma/Serum Alcohol Crossmatch 11/23/19 11/24/19 11/24/19 06:32 04:35 04:35 WBC RBC Hgb Hct MCH RDW Plt Count Lymph % (Auto) [place] % (Auto) [place] # Baso # Seg Neutrophils % Seg Neuts % (Manual) Lymphocytes % (Manual) Monocytes % (Manual) Seg Neutrophils # Seg Neutrophils # Man Lymphocytes # (Manual) Monocytes # (Manual) Eosinophils # (Manual) Basophils # (Manual) PT INR APTT ABG pH ABG pO2 ABG HCO3 ABG O2 Saturation ABG Base Excess ABG Hemoglobin Oxyhemoglobin Sodium Potassium Chloride Carbon Dioxide BUN Creatinine Glucose POC Glucose Lactic Acid 3.30 H* Calcium Ionized Calcium Phosphorus Magnesium 1.40 L Total Bilirubin AST ALT Alkaline Phosphatase Ammonia 98.0 H Total Creatine Kinase CK-MB (CK-2) CK-MB (CK-2) Rel Index Total Protein Albumin Urine WBC (Auto) Vancomycin Trough Salicylates Acetaminophen Plasma/Serum Alcohol Crossmatch 11/24/19 11/25/19 11/25/19 05:22 04:34 05:05 WBC 17.3 H RBC 2.88 L Hgb 7.8 L Hct 24.6 L MCH 27 L RDW 18.5 H Plt Count Lymph % (Auto) 7.7 L [place] % (Auto) 9.7 H [place] # 1.7 H Baso # Seg Neutrophils % 82.2 H Seg Neuts % (Manual) Lymphocytes % (Manual) Monocytes % (Manual) Seg Neutrophils # 14.2 H Seg Neutrophils # Man Lymphocytes # (Manual) Monocytes # (Manual) Eosinophils # (Manual) Basophils # (Manual) PT INR APTT ABG pH 7.475 H ABG pO2 ABG HCO3 29.4 H 32.3 H ABG O2 Saturation ABG Base Excess 5.4 H 6.9 H ABG Hemoglobin 9.0 L 10.6 L Oxyhemoglobin 94.3 L Sodium Potassium Chloride Carbon Dioxide BUN Creatinine Glucose POC Glucose Lactic Acid Calcium Ionized Calcium Phosphorus Magnesium Total Bilirubin AST ALT Alkaline Phosphatase Ammonia Total Creatine Kinase CK-MB (CK-2) CK-MB (CK-2) Rel Index Total Protein Albumin Urine WBC (Auto) Vancomycin Trough Salicylates Acetaminophen Plasma/Serum Alcohol Crossmatch 11/25/19 11/25/1920 05:05 22:46 03:31 WBC RBC Hgb Hct MCH RDW Plt Count Lymph % (Auto) [place] % (Auto) [place] # Baso # Seg Neutrophils % Seg Neuts % (Manual) Lymphocytes % (Manual) Monocytes % (Manual) Seg Neutrophils # Seg Neutrophils # Man Lymphocytes # (Manual) Monocytes # (Manual) Eosinophils # (Manual) Basophils # (Manual) PT INR APTT ABG pH 7.459 H ABG pO2 ABG HCO3 34.2 H ABG O2 Saturation ABG Base Excess 9.4 H ABG Hemoglobin 7.6 L Oxyhemoglobin 94.8 L Sodium 152 H D 147 H Potassium 2.3 L* D 2.8 L* D Chloride 107.8 H Carbon Dioxide 31 H D 33 H BUN Creatinine 0.6 L 0.6 L Glucose 148 H 177 H POC Glucose Lactic Acid Calcium Ionized Calcium Phosphorus Magnesium Total Bilirubin AST 105 H ALT 71 H Alkaline Phosphatase 155 H Ammonia Total Creatine Kinase CK-MB (CK-2) CK-MB (CK-2) Rel Index Total Protein 5.2 L D Albumin 2.9 L Urine WBC (Auto) Vancomycin Trough Salicylates Acetaminophen Plasma/Serum Alcohol Crossmatch 11/26/19 11/26/19 11/27/19 08:24 08:24 04:20 WBC 12.0 H RBC 3.00 L Hgb 8.0 L 9.3 L Hct 25.9 L 29.7 L MCH 27 L RDW 18.5 H Plt Count Lymph % (Auto) [place] % (Auto) [place] # Baso # Seg Neutrophils % Seg Neuts % (Manual) 89.0 H Lymphocytes % (Manual) 4.0 L Monocytes % (Manual) Seg Neutrophils # Seg Neutrophils # Man 10.7 H Lymphocytes # (Manual) 0.5 L Monocytes # (Manual) Eosinophils # (Manual) Basophils # (Manual) PT INR APTT ABG pH ABG pO2 ABG HCO3 ABG O2 Saturation ABG Base Excess ABG Hemoglobin Oxyhemoglobin Sodium 146 H Potassium 3.4 L D Chloride Carbon Dioxide BUN Creatinine 0.5 L Glucose 165 H POC Glucose Lactic Acid Calcium Ionized Calcium Phosphorus Magnesium Total Bilirubin AST 57 H ALT Alkaline Phosphatase 166 H Ammonia Total Creatine Kinase CK-MB (CK-2) CK-MB (CK-2) Rel Index Total Protein Albumin 2.9 L Urine WBC (Auto) Vancomycin Trough Salicylates Acetaminophen Plasma/Serum Alcohol Crossmatch 11/27/19 11/27/19 11/27/19 04:28 04:28 04:42 WBC RBC Hgb Hct MCH RDW Plt Count Lymph % (Auto) [place] % (Auto) [place] # Baso # Seg Neutrophils % Seg Neuts % (Manual) Lymphocytes % (Manual) Monocytes % (Manual) Seg Neutrophils # Seg Neutrophils # Man Lymphocytes # (Manual) Monocytes # (Manual) Eosinophils # (Manual) Basophils # (Manual) PT INR APTT ABG pH 7.470 H ABG pO2 74.0 L ABG HCO3 33.8 H ABG O2 Saturation ABG Base Excess 9.1 H ABG Hemoglobin 8.7 L Oxyhemoglobin 94.7 L Sodium 146 H Potassium 2.9 L* Chloride Carbon Dioxide BUN 25 H Creatinine Glucose 213 H POC Glucose Lactic Acid Calcium Ionized Calcium Phosphorus 1.00 L Magnesium Total Bilirubin AST ALT Alkaline Phosphatase Ammonia Total Creatine Kinase CK-MB (CK-2) CK-MB (CK-2) Rel Index Total Protein Albumin Urine WBC (Auto) Vancomycin Trough Salicylates Acetaminophen Plasma/Serum Alcohol Crossmatch 11/27/19 11/27/19 11/27/19 05:37 12:20 15:46 WBC RBC Hgb Hct MCH RDW Plt Count Lymph % (Auto) [place] % (Auto) [place] # Baso # Seg Neutrophils % Seg Neuts % (Manual) Lymphocytes % (Manual) Monocytes % (Manual) Seg Neutrophils # Seg Neutrophils # Man Lymphocytes # (Manual) Monocytes # (Manual) Eosinophils # (Manual) Basophils # (Manual) PT INR APTT ABG pH ABG pO2 ABG HCO3 ABG O2 Saturation ABG Base Excess ABG Hemoglobin Oxyhemoglobin Sodium 146 H Potassium 3.5 L D Chloride Carbon Dioxide BUN 24 H Creatinine 0.6 L Glucose 187 H POC Glucose 117 H 220 H Lactic Acid Calcium Ionized Calcium Phosphorus Magnesium Total Bilirubin AST ALT Alkaline Phosphatase Ammonia Total Creatine Kinase CK-MB (CK-2) CK-MB (CK-2) Rel Index Total Protein Albumin Urine WBC (Auto) Vancomycin Trough Salicylates Acetaminophen Plasma/Serum Alcohol Crossmatch 11/27/19 11/28/19 11/28/19 17:28 05:00 05:02 WBC RBC Hgb Hct MCH RDW Plt Count Lymph % (Auto) [place] % (Auto) [place] # Baso # Seg Neutrophils % Seg Neuts % (Manual) Lymphocytes % (Manual) Monocytes % (Manual) Seg Neutrophils # Seg Neutrophils # Man Lymphocytes # (Manual) Monocytes # (Manual) Eosinophils # (Manual) Basophils # (Manual) PT INR APTT ABG pH ABG pO2 72.4 L ABG HCO3 33.6 H ABG O2 Saturation 94.1 L ABG Base Excess 7.3 H ABG Hemoglobin Oxyhemoglobin 91.8 L Sodium 146 H Potassium 3.3 L Chloride Carbon Dioxide BUN 25 H Creatinine 0.6 L Glucose 176 H POC Glucose 198 H Lactic Acid Calcium Ionized Calcium Phosphorus Magnesium Total Bilirubin AST ALT Alkaline Phosphatase Ammonia Total Creatine Kinase CK-MB (CK-2) CK-MB (CK-2) Rel Index Total Protein Albumin Urine WBC (Auto) Vancomycin Trough Salicylates Acetaminophen Plasma/Serum Alcohol Crossmatch 11/28/19 11/28/19 11/29/19 05:02 18:55 10:43 WBC 15.2 H 19.0 H RBC 3.06 L 3.01 L Hgb 8.3 L 8.3 L Hct 27.0 L 26.4 L MCH 27 L RDW 19.0 H 19.7 H Plt Count 479 H 611 H Lymph % (Auto) [place] % (Auto) [place] # Baso # Seg Neutrophils % Seg Neuts % (Manual) 92.0 H Lymphocytes % (Manual) 2.0 L Monocytes % (Manual) Seg Neutrophils # Seg Neutrophils # Man 14.0 H Lymphocytes # (Manual) 0.3 L Monocytes # (Manual) Eosinophils # (Manual) Basophils # (Manual) PT INR APTT ABG pH ABG pO2 ABG HCO3 ABG O2 Saturation ABG Base Excess ABG Hemoglobin Oxyhemoglobin Sodium Potassium Chloride Carbon Dioxide BUN Creatinine Glucose POC Glucose 138 H Lactic Acid Calcium Ionized Calcium Phosphorus Magnesium Total Bilirubin AST ALT Alkaline Phosphatase Ammonia Total Creatine Kinase CK-MB (CK-2) CK-MB (CK-2) Rel Index Total Protein Albumin Urine WBC (Auto) Vancomycin Trough Salicylates Acetaminophen Plasma/Serum Alcohol Crossmatch 11/29/19 11/29/19 11/29/19 10:43 12:27 19:25 WBC RBC Hgb Hct MCH RDW Plt Count Lymph % (Auto) [place] % (Auto) [place] # Baso # Seg Neutrophils % Seg Neuts % (Manual) Lymphocytes % (Manual) Monocytes % (Manual) Seg Neutrophils # Seg Neutrophils # Man Lymphocytes # (Manual) Monocytes # (Manual) Eosinophils # (Manual) Basophils # (Manual) PT INR APTT ABG pH ABG pO2 ABG HCO3 ABG O2 Saturation ABG Base Excess ABG Hemoglobin Oxyhemoglobin Sodium Potassium 2.8 L* Chloride Carbon Dioxide BUN 20 H Creatinine 0.5 L Glucose 121 H POC Glucose 128 H 120 H Lactic Acid Calcium Ionized Calcium Phosphorus Magnesium Total Bilirubin AST ALT Alkaline Phosphatase Ammonia Total Creatine Kinase CK-MB (CK-2) CK-MB (CK-2) Rel Index Total Protein Albumin Urine WBC (Auto) Vancomycin Trough Salicylates Acetaminophen Plasma/Serum Alcohol Crossmatch 11/29/19 11/30/19 11/30/19 23:46 04:10 05:02 WBC RBC Hgb Hct MCH RDW Plt Count Lymph % (Auto) [place] % (Auto) [place] # Baso # Seg Neutrophils % Seg Neuts % (Manual) Lymphocytes % (Manual) Monocytes % (Manual) Seg Neutrophils # Seg Neutrophils # Man Lymphocytes # (Manual) Monocytes # (Manual) Eosinophils # (Manual) Basophils # (Manual) PT INR APTT ABG pH ABG pO2 76.3 L ABG HCO3 32.5 H ABG O2 Saturation ABG Base Excess 6.9 H ABG Hemoglobin 8.0 L Oxyhemoglobin 92.6 L Sodium Potassium Chloride Carbon Dioxide BUN Creatinine Glucose POC Glucose 116 H 128 H Lactic Acid Calcium Ionized Calcium Phosphorus Magnesium Total Bilirubin AST ALT Alkaline Phosphatase Ammonia Total Creatine Kinase CK-MB (CK-2) CK-MB (CK-2) Rel Index Total Protein Albumin Urine WBC (Auto) Vancomycin Trough Salicylates Acetaminophen Plasma/Serum Alcohol Crossmatch 11/30/19 11/30/19 11/30/19 05:25 05:25 12:59 WBC 18.4 H RBC 3.10 L Hgb 8.5 L Hct 27.5 L MCH 27 L RDW 20.9 H Plt Count 691 H Lymph % (Auto) 7.1 L [place] % (Auto) 7.7 H [place] # 1.4 H Baso # Seg Neutrophils % 83.4 H Seg Neuts % (Manual) Lymphocytes % (Manual) Monocytes % (Manual) Seg Neutrophils # 15.4 H Seg Neutrophils # Man Lymphocytes # (Manual) Monocytes # (Manual) Eosinophils # (Manual) Basophils # (Manual) PT INR APTT ABG pH ABG pO2 ABG HCO3 ABG O2 Saturation ABG Base Excess ABG Hemoglobin Oxyhemoglobin Sodium 146 H Potassium Chloride 107.2 H Carbon Dioxide BUN Creatinine 0.5 L Glucose 132 H POC Glucose 124 H Lactic Acid Calcium Ionized Calcium Phosphorus Magnesium Total Bilirubin AST 246 H ALT 274 H Alkaline Phosphatase 203 H Ammonia Total Creatine Kinase CK-MB (CK-2) CK-MB (CK-2) Rel Index Total Protein 5.4 L Albumin 2.9 L Urine WBC (Auto) Vancomycin Trough Salicylates Acetaminophen Plasma/Serum Alcohol Crossmatch 11/30/19 12/01/19 12/01/19 17:53 00:05 05:10 WBC RBC Hgb Hct MCH RDW Plt Count Lymph % (Auto) [place] % (Auto) [place] # Baso # Seg Neutrophils % Seg Neuts % (Manual) Lymphocytes % (Manual) Monocytes % (Manual) Seg Neutrophils # Seg Neutrophils # Man Lymphocytes # (Manual) Monocytes # (Manual) Eosinophils # (Manual) Basophils # (Manual) PT INR APTT ABG pH ABG pO2 ABG HCO3 ABG O2 Saturation ABG Base Excess ABG Hemoglobin Oxyhemoglobin Sodium Potassium Chloride Carbon Dioxide BUN Creatinine Glucose POC Glucose 113 H 143 H 145 H Lactic Acid Calcium Ionized Calcium Phosphorus Magnesium Total Bilirubin AST ALT Alkaline Phosphatase Ammonia Total Creatine Kinase CK-MB (CK-2) CK-MB (CK-2) Rel Index Total Protein Albumin Urine WBC (Auto) Vancomycin Trough Salicylates Acetaminophen Plasma/Serum Alcohol Crossmatch 12/01/19 12/01/19 12/01/19 05:33 08:23 08:23 WBC 22.7 H RBC 2.88 L Hgb 7.9 L Hct 25.2 L MCH 27 L RDW 21.0 H Plt Count 732 H Lymph % (Auto) [place] % (Auto) [place] # Baso # Seg Neutrophils % Seg Neuts % (Manual) 91.0 H Lymphocytes % (Manual) 3.0 L Monocytes % (Manual) Seg Neutrophils # Seg Neutrophils # Man 20.7 H Lymphocytes # (Manual) 0.7 L Monocytes # (Manual) 1.1 H Eosinophils # (Manual) Basophils # (Manual) PT INR APTT ABG pH ABG pO2 68.6 L ABG HCO3 34.1 H ABG O2 Saturation ABG Base Excess 9.0 H ABG Hemoglobin 6.5 L Oxyhemoglobin 94.7 L Sodium Potassium Chloride Carbon Dioxide BUN Creatinine 0.5 L Glucose 125 H POC Glucose Lactic Acid Calcium Ionized Calcium Phosphorus Magnesium Total Bilirubin AST ALT Alkaline Phosphatase Ammonia Total Creatine Kinase CK-MB (CK-2) CK-MB (CK-2) Rel Index Total Protein Albumin Urine WBC (Auto) Vancomycin Trough Salicylates Acetaminophen Plasma/Serum Alcohol Crossmatch 12/01/19 12/01/19 12/01/19 13:21 17:54 20:59 WBC RBC Hgb Hct MCH RDW Plt Count Lymph % (Auto) [place] % (Auto) [place] # Baso # Seg Neutrophils % Seg Neuts % (Manual) Lymphocytes % (Manual) Monocytes % (Manual) Seg Neutrophils # Seg Neutrophils # Man Lymphocytes # (Manual) Monocytes # (Manual) Eosinophils # (Manual) Basophils # (Manual) PT INR APTT ABG pH ABG pO2 78.3 L ABG HCO3 33.8 H ABG O2 Saturation 94.9 L ABG Base Excess 7.9 H ABG Hemoglobin 11.5 L Oxyhemoglobin 92.3 L Sodium Potassium Chloride Carbon Dioxide BUN Creatinine Glucose POC Glucose 111 H 115 H Lactic Acid Calcium Ionized Calcium Phosphorus Magnesium Total Bilirubin AST ALT Alkaline Phosphatase Ammonia Total Creatine Kinase CK-MB (CK-2) CK-MB (CK-2) Rel Index Total Protein Albumin Urine WBC (Auto) Vancomycin Trough Salicylates Acetaminophen Plasma/Serum Alcohol Crossmatch 12/02/19 12/03/19 12/04/19 12:55 20:00 04:26 WBC 15.2 H RBC 2.69 L Hgb 7.4 L Hct 23.6 L MCH 27 L RDW 19.9 H Plt Count 838 H Lymph % (Auto) [place] % (Auto) [place] # Baso # Seg Neutrophils % Seg Neuts % (Manual) Lymphocytes % (Manual) Monocytes % (Manual) Seg Neutrophils # Seg Neutrophils # Man Lymphocytes # (Manual) Monocytes # (Manual) Eosinophils # (Manual) Basophils # (Manual) PT INR APTT ABG pH ABG pO2 68.3 L ABG HCO3 33.5 H ABG O2 Saturation 93.5 L ABG Base Excess 8.4 H ABG Hemoglobin 7.3 L Oxyhemoglobin 90.9 L Sodium Potassium Chloride Carbon Dioxide BUN Creatinine Glucose POC Glucose 107 H Lactic Acid Calcium Ionized Calcium Phosphorus Magnesium Total Bilirubin AST ALT Alkaline Phosphatase Ammonia Total Creatine Kinase CK-MB (CK-2) CK-MB (CK-2) Rel Index Total Protein Albumin Urine WBC (Auto) Vancomycin Trough Salicylates Acetaminophen Plasma/Serum Alcohol Crossmatch 12/04/19 12/04/19 12/04/19 04:26 07:45 12:02 WBC 15.9 H RBC 2.88 L Hgb 7.9 L Hct 25.1 L MCH RDW 20.4 H Plt Count 839 H Lymph % (Auto) 11.3 L [place] % (Auto) 15.2 H [place] # 2.4 H Baso # Seg Neutrophils % 72.4 H Seg Neuts % (Manual) Lymphocytes % (Manual) Monocytes % (Manual) Seg Neutrophils # 11.5 H Seg Neutrophils # Man Lymphocytes # (Manual) Monocytes # (Manual) Eosinophils # (Manual) Basophils # (Manual) PT INR APTT ABG pH ABG pO2 ABG HCO3 ABG O2 Saturation ABG Base Excess ABG Hemoglobin Oxyhemoglobin Sodium Potassium Chloride 96.5 L Carbon Dioxide BUN 21 H Creatinine 0.6 L Glucose 107 H POC Glucose 138 H Lactic Acid Calcium Ionized Calcium Phosphorus Magnesium Total Bilirubin AST ALT Alkaline Phosphatase Ammonia Total Creatine Kinase CK-MB (CK-2) CK-MB (CK-2) Rel Index Total Protein Albumin Urine WBC (Auto) Vancomycin Trough Salicylates Acetaminophen Plasma/Serum Alcohol Crossmatch 12/04/19 12/05/19 12/05/19 18:16 11:55 18:36 WBC RBC Hgb Hct MCH RDW Plt Count Lymph % (Auto) [place] % (Auto) [place] # Baso # Seg Neutrophils % Seg Neuts % (Manual) Lymphocytes % (Manual) Monocytes % (Manual) Seg Neutrophils # Seg Neutrophils # Man Lymphocytes # (Manual) Monocytes # (Manual) Eosinophils # (Manual) Basophils # (Manual) PT INR APTT ABG pH ABG pO2 ABG HCO3 ABG O2 Saturation ABG Base Excess ABG Hemoglobin Oxyhemoglobin Sodium Potassium Chloride Carbon Dioxide BUN Creatinine Glucose POC Glucose 135 H 125 H 135 H Lactic Acid Calcium Ionized Calcium Phosphorus Magnesium Total Bilirubin AST ALT Alkaline Phosphatase Ammonia Total Creatine Kinase CK-MB (CK-2) CK-MB (CK-2) Rel Index Total Protein Albumin Urine WBC (Auto) Vancomycin Trough Salicylates Acetaminophen Plasma/Serum Alcohol Crossmatch 12/05/19 12/06/19 12/06/19 23:30 04:14 05:43 WBC RBC Hgb Hct MCH RDW Plt Count Lymph % (Auto) [place] % (Auto) [place] # Baso # Seg Neutrophils % Seg Neuts % (Manual) Lymphocytes % (Manual) Monocytes % (Manual) Seg Neutrophils # Seg Neutrophils # Man Lymphocytes # (Manual) Monocytes # (Manual) Eosinophils # (Manual) Basophils # (Manual) PT INR APTT ABG pH ABG pO2 ABG HCO3 ABG O2 Saturation ABG Base Excess ABG Hemoglobin Oxyhemoglobin Sodium Potassium 5.6 H Chloride 95.0 L Carbon Dioxide BUN 48 H Creatinine 1.3 H D Glucose POC Glucose 126 H 121 H Lactic Acid Calcium Ionized Calcium Phosphorus Magnesium Total Bilirubin AST 89 H ALT 98 H Alkaline Phosphatase 476 H Ammonia Total Creatine Kinase CK-MB (CK-2) CK-MB (CK-2) Rel Index Total Protein Albumin 2.8 L Urine WBC (Auto) Vancomycin Trough Salicylates Acetaminophen Plasma/Serum Alcohol Crossmatch 12/06/19 12/06/19 12/07/19 10:39 14:34 00:19 WBC 17.3 H RBC 2.60 L Hgb 7.1 L Hct 22.7 L MCH 27 L RDW 20.1 H Plt Count 832 H Lymph % (Auto) [place] % (Auto) [place] # Baso # Seg Neutrophils % Seg Neuts % (Manual) Lymphocytes % (Manual) Monocytes % (Manual) Seg Neutrophils # Seg Neutrophils # Man Lymphocytes # (Manual) Monocytes # (Manual) Eosinophils # (Manual) Basophils # (Manual) PT INR APTT ABG pH ABG pO2 ABG HCO3 ABG O2 Saturation ABG Base Excess ABG Hemoglobin Oxyhemoglobin Sodium Potassium Chloride Carbon Dioxide BUN Creatinine Glucose POC Glucose 128 H 136 H Lactic Acid Calcium Ionized Calcium Phosphorus Magnesium Total Bilirubin AST ALT Alkaline Phosphatase Ammonia Total Creatine Kinase CK-MB (CK-2) CK-MB (CK-2) Rel Index Total Protein Albumin Urine WBC (Auto) Vancomycin Trough Salicylates Acetaminophen Plasma/Serum Alcohol Crossmatch 12/07/19 12/07/19 12/07/19 03:44 03:44 05:53 WBC 16.2 H RBC 2.56 L Hgb 7.1 L Hct 22.3 L MCH RDW 19.4 H Plt Count 782 H Lymph % (Auto) [place] % (Auto) [place] # Baso # Seg Neutrophils % Seg Neuts % (Manual) Lymphocytes % (Manual) Monocytes % (Manual) Seg Neutrophils # Seg Neutrophils # Man Lymphocytes # (Manual) Monocytes # (Manual) Eosinophils # (Manual) Basophils # (Manual) PT INR APTT ABG pH ABG pO2 ABG HCO3 ABG O2 Saturation ABG Base Excess ABG Hemoglobin Oxyhemoglobin Sodium Potassium Chloride 95.6 L Carbon Dioxide BUN 56 H Creatinine 1.4 H Glucose 120 H POC Glucose 128 H Lactic Acid Calcium 10.3 H Ionized Calcium Phosphorus Magnesium Total Bilirubin AST ALT Alkaline Phosphatase Ammonia Total Creatine Kinase CK-MB (CK-2) CK-MB (CK-2) Rel Index Total Protein Albumin Urine WBC (Auto) Vancomycin Trough Salicylates Acetaminophen Plasma/Serum Alcohol Crossmatch 12/07/19 12/07/19 12/08/19 12:54 23:47 00:20 WBC RBC Hgb Hct MCH RDW Plt Count Lymph % (Auto) [place] % (Auto) [place] # Baso # Seg Neutrophils % Seg Neuts % (Manual) Lymphocytes % (Manual) Monocytes % (Manual) Seg Neutrophils # Seg Neutrophils # Man Lymphocytes # (Manual) Monocytes # (Manual) Eosinophils # (Manual) Basophils # (Manual) PT INR APTT ABG pH ABG pO2 ABG HCO3 ABG O2 Saturation ABG Base Excess ABG Hemoglobin Oxyhemoglobin Sodium Potassium Chloride Carbon Dioxide BUN Creatinine Glucose POC Glucose 128 H 130 H 124 H Lactic Acid Calcium Ionized Calcium Phosphorus Magnesium Total Bilirubin AST ALT Alkaline Phosphatase Ammonia Total Creatine Kinase CK-MB (CK-2) CK-MB (CK-2) Rel Index Total Protein Albumin Urine WBC (Auto) Vancomycin Trough Salicylates Acetaminophen Plasma/Serum Alcohol Crossmatch 12/08/19 12/08/19 12/08/19 06:38 12:04 18:26 WBC RBC Hgb Hct MCH RDW Plt Count Lymph % (Auto) [place] % (Auto) [place] # Baso # Seg Neutrophils % Seg Neuts % (Manual) Lymphocytes % (Manual) Monocytes % (Manual) Seg Neutrophils # Seg Neutrophils # Man Lymphocytes # (Manual) Monocytes # (Manual) Eosinophils # (Manual) Basophils # (Manual) PT INR APTT ABG pH ABG pO2 ABG HCO3 ABG O2 Saturation ABG Base Excess ABG Hemoglobin Oxyhemoglobin Sodium Potassium Chloride Carbon Dioxide BUN Creatinine Glucose POC Glucose 137 H 129 H 150 H Lactic Acid Calcium Ionized Calcium Phosphorus Magnesium Total Bilirubin AST ALT Alkaline Phosphatase Ammonia Total Creatine Kinase CK-MB (CK-2) CK-MB (CK-2) Rel Index Total Protein Albumin Urine WBC (Auto) Vancomycin Trough Salicylates Acetaminophen Plasma/Serum Alcohol Crossmatch 12/09/19 12/09/19 12/09/19 00:56 05:34 06:13 WBC RBC Hgb Hct MCH RDW Plt Count Lymph % (Auto) [place] % (Auto) [place] # Baso # Seg Neutrophils % Seg Neuts % (Manual) Lymphocytes % (Manual) Monocytes % (Manual) Seg Neutrophils # Seg Neutrophils # Man Lymphocytes # (Manual) Monocytes # (Manual) Eosinophils # (Manual) Basophils # (Manual) PT INR APTT ABG pH ABG pO2 ABG HCO3 ABG O2 Saturation ABG Base Excess ABG Hemoglobin Oxyhemoglobin Sodium 146 H Potassium Chloride Carbon Dioxide BUN 66 H Creatinine 1.9 H Glucose 116 H POC Glucose 130 H 130 H Lactic Acid Calcium Ionized Calcium Phosphorus Magnesium Total Bilirubin AST ALT Alkaline Phosphatase Ammonia Total Creatine Kinase CK-MB (CK-2) CK-MB (CK-2) Rel Index Total Protein Albumin Urine WBC (Auto) Vancomycin Trough Salicylates Acetaminophen Plasma/Serum Alcohol Crossmatch 12/09/19 12/09/19 12/10/19 11:52 17:50 00:14 WBC RBC Hgb Hct MCH RDW Plt Count Lymph % (Auto) [place] % (Auto) [place] # Baso # Seg Neutrophils % Seg Neuts % (Manual) Lymphocytes % (Manual) Monocytes % (Manual) Seg Neutrophils # Seg Neutrophils # Man Lymphocytes # (Manual) Monocytes # (Manual) Eosinophils # (Manual) Basophils # (Manual) PT INR APTT ABG pH ABG pO2 ABG HCO3 ABG O2 Saturation ABG Base Excess ABG Hemoglobin Oxyhemoglobin Sodium Potassium Chloride Carbon Dioxide BUN Creatinine Glucose POC Glucose 135 H 120 H 116 H Lactic Acid Calcium Ionized Calcium Phosphorus Magnesium Total Bilirubin AST ALT Alkaline Phosphatase Ammonia Total Creatine Kinase CK-MB (CK-2) CK-MB (CK-2) Rel Index Total Protein Albumin Urine WBC (Auto) Vancomycin Trough Salicylates Acetaminophen Plasma/Serum Alcohol Crossmatch 12/10/19 12/10/19 12/10/19 05:38 11:38 17:34 WBC RBC Hgb Hct MCH RDW Plt Count Lymph % (Auto) [place] % (Auto) [place] # Baso # Seg Neutrophils % Seg Neuts % (Manual) Lymphocytes % (Manual) Monocytes % (Manual) Seg Neutrophils # Seg Neutrophils # Man Lymphocytes # (Manual) Monocytes # (Manual) Eosinophils # (Manual) Basophils # (Manual) PT INR APTT ABG pH ABG pO2 ABG HCO3 ABG O2 Saturation ABG Base Excess ABG Hemoglobin Oxyhemoglobin Sodium Potassium Chloride Carbon Dioxide BUN Creatinine Glucose POC Glucose 115 H 112 H 130 H Lactic Acid Calcium Ionized Calcium Phosphorus Magnesium Total Bilirubin AST ALT Alkaline Phosphatase Ammonia Total Creatine Kinase CK-MB (CK-2) CK-MB (CK-2) Rel Index Total Protein Albumin Urine WBC (Auto) Vancomycin Trough Salicylates Acetaminophen Plasma/Serum Alcohol Crossmatch 12/11/19 12/11/19 12/11/19 00:20 05:31 12:22 WBC RBC Hgb Hct MCH RDW Plt Count Lymph % (Auto) [place] % (Auto) [place] # Baso # Seg Neutrophils % Seg Neuts % (Manual) Lymphocytes % (Manual) Monocytes % (Manual) Seg Neutrophils # Seg Neutrophils # Man Lymphocytes # (Manual) Monocytes # (Manual) Eosinophils # (Manual) Basophils # (Manual) PT INR APTT ABG pH ABG pO2 ABG HCO3 ABG O2 Saturation ABG Base Excess ABG Hemoglobin Oxyhemoglobin Sodium Potassium Chloride Carbon Dioxide BUN Creatinine Glucose POC Glucose 124 H 132 H 128 H Lactic Acid Calcium Ionized Calcium Phosphorus Magnesium Total Bilirubin AST ALT Alkaline Phosphatase Ammonia Total Creatine Kinase CK-MB (CK-2) CK-MB (CK-2) Rel Index Total Protein Albumin Urine WBC (Auto) Vancomycin Trough Salicylates Acetaminophen Plasma/Serum Alcohol Crossmatch 12/11/19 12/11/19 12/12/19 18:04 23:42 03:51 WBC RBC Hgb Hct MCH RDW Plt Count Lymph % (Auto) [place] % (Auto) [place] # Baso # Seg Neutrophils % Seg Neuts % (Manual) Lymphocytes % (Manual) Monocytes % (Manual) Seg Neutrophils # Seg Neutrophils # Man Lymphocytes # (Manual) Monocytes # (Manual) Eosinophils # (Manual) Basophils # (Manual) PT INR APTT ABG pH ABG pO2 ABG HCO3 ABG O2 Saturation ABG Base Excess ABG Hemoglobin Oxyhemoglobin Sodium 149 H Potassium Chloride Carbon Dioxide 20 L D BUN 77 H Creatinine 2.8 H Glucose POC Glucose 133 H 154 H Lactic Acid Calcium Ionized Calcium Phosphorus Magnesium Total Bilirubin AST ALT Alkaline Phosphatase Ammonia Total Creatine Kinase CK-MB (CK-2) CK-MB (CK-2) Rel Index Total Protein Albumin Urine WBC (Auto) Vancomycin Trough Salicylates Acetaminophen Plasma/Serum Alcohol Crossmatch 12/12/19 12/12/19 12/12/19 05:18 05:26 10:30 WBC 18.0 H RBC 2.51 L Hgb 6.8 L Hct 22.0 L MCH 27 L RDW 19.9 H Plt Count 582 H Lymph % (Auto) [place] % (Auto) [place] # Baso # Seg Neutrophils % Seg Neuts % (Manual) Lymphocytes % (Manual) Monocytes % (Manual) Seg Neutrophils # Seg Neutrophils # Man Lymphocytes # (Manual) Monocytes # (Manual) Eosinophils # (Manual) Basophils # (Manual) PT INR APTT ABG pH ABG pO2 ABG HCO3 ABG O2 Saturation ABG Base Excess ABG Hemoglobin Oxyhemoglobin Sodium Potassium Chloride Carbon Dioxide BUN Creatinine Glucose POC Glucose 135 H Lactic Acid Calcium Ionized Calcium Phosphorus Magnesium Total Bilirubin AST ALT Alkaline Phosphatase Ammonia Total Creatine Kinase CK-MB (CK-2) CK-MB (CK-2) Rel Index Total Protein Albumin Urine WBC (Auto) Vancomycin Trough Salicylates Acetaminophen Plasma/Serum Alcohol Crossmatch See Detail 12/12/19 12/12/19 12/12/19 11:44 18:10 23:21 WBC RBC Hgb Hct MCH RDW Plt Count Lymph % (Auto) [place] % (Auto) [place] # Baso # Seg Neutrophils % Seg Neuts % (Manual) Lymphocytes % (Manual) Monocytes % (Manual) Seg Neutrophils # Seg Neutrophils # Man Lymphocytes # (Manual) Monocytes # (Manual) Eosinophils # (Manual) Basophils # (Manual) PT INR APTT ABG pH ABG pO2 ABG HCO3 ABG O2 Saturation ABG Base Excess ABG Hemoglobin Oxyhemoglobin Sodium Potassium Chloride Carbon Dioxide BUN Creatinine Glucose POC Glucose 108 H 107 H 126 H Lactic Acid Calcium Ionized Calcium Phosphorus Magnesium Total Bilirubin AST ALT Alkaline Phosphatase Ammonia Total Creatine Kinase CK-MB (CK-2) CK-MB (CK-2) Rel Index Total Protein Albumin Urine WBC (Auto) Vancomycin Trough Salicylates Acetaminophen Plasma/Serum Alcohol Crossmatch 12/13/19 12/13/19 12/13/19 05:41 07:48 07:48 WBC 38.3 H RBC 2.37 L Hgb 6.3 L Hct 20.9 L MCH 27 L RDW 20.2 H Plt Count 546 H Lymph % (Auto) [place] % (Auto) [place] # Baso # Seg Neutrophils % Seg Neuts % (Manual) 93.0 H Lymphocytes % (Manual) 1.0 L Monocytes % (Manual) Seg Neutrophils # Seg Neutrophils # Man 35.6 H Lymphocytes # (Manual) 0.4 L Monocytes # (Manual) Eosinophils # (Manual) Basophils # (Manual) 0.4 H PT INR APTT ABG pH ABG pO2 ABG HCO3 ABG O2 Saturation ABG Base Excess ABG Hemoglobin Oxyhemoglobin Sodium 152 H Potassium 3.1 L D Chloride 111.9 H Carbon Dioxide 21 L BUN 53 H Creatinine 1.9 H Glucose 141 H POC Glucose 128 H Lactic Acid Calcium Ionized Calcium Phosphorus Magnesium Total Bilirubin AST ALT Alkaline Phosphatase 316 H Ammonia Total Creatine Kinase CK-MB (CK-2) CK-MB (CK-2) Rel Index Total Protein Albumin 2.4 L Urine WBC (Auto) Vancomycin Trough Salicylates Acetaminophen Plasma/Serum Alcohol Crossmatch 12/13/19 12/13/19 12/14/19 18:17 23:19 05:36 WBC RBC Hgb Hct MCH RDW Plt Count Lymph % (Auto) [place] % (Auto) [place] # Baso # Seg Neutrophils % Seg Neuts % (Manual) Lymphocytes % (Manual) Monocytes % (Manual) Seg Neutrophils # Seg Neutrophils # Man Lymphocytes # (Manual) Monocytes # (Manual) Eosinophils # (Manual) Basophils # (Manual) PT INR APTT ABG pH ABG pO2 ABG HCO3 ABG O2 Saturation ABG Base Excess ABG Hemoglobin Oxyhemoglobin Sodium Potassium Chloride Carbon Dioxide BUN Creatinine Glucose POC Glucose 141 H 158 H 182 H Lactic Acid Calcium Ionized Calcium Phosphorus Magnesium Total Bilirubin AST ALT Alkaline Phosphatase Ammonia Total Creatine Kinase CK-MB (CK-2) CK-MB (CK-2) Rel Index Total Protein Albumin Urine WBC (Auto) Vancomycin Trough Salicylates Acetaminophen Plasma/Serum Alcohol Crossmatch 12/14/19 12/14/19 12/14/19 08:48 08:48 10:31 WBC 33.3 H RBC 2.70 L Hgb 7.9 L 8.0 L Hct 25.3 L 24.0 L MCH RDW 19.2 H Plt Count 476 H Lymph % (Auto) [place] % (Auto) [place] # Baso # Seg Neutrophils % Seg Neuts % (Manual) Lymphocytes % (Manual) Monocytes % (Manual) Seg Neutrophils # Seg Neutrophils # Man Lymphocytes # (Manual) Monocytes # (Manual) Eosinophils # (Manual) Basophils # (Manual) PT INR APTT ABG pH ABG pO2 ABG HCO3 ABG O2 Saturation ABG Base Excess ABG Hemoglobin Oxyhemoglobin Sodium 153 H Potassium 2.5 L* Chloride 114.9 H Carbon Dioxide 20 L BUN 38 H Creatinine 1.4 H Glucose 177 H POC Glucose Lactic Acid Calcium Ionized Calcium Phosphorus Magnesium Total Bilirubin AST ALT Alkaline Phosphatase Ammonia Total Creatine Kinase CK-MB (CK-2) CK-MB (CK-2) Rel Index Total Protein Albumin Urine WBC (Auto) Vancomycin Trough Salicylates Acetaminophen Plasma/Serum Alcohol Crossmatch 12/14/19 12/14/19 12/14/19 12:57 16:15 17:50 WBC RBC Hgb Hct MCH RDW Plt Count Lymph % (Auto) [place] % (Auto) [place] # Baso # Seg Neutrophils % Seg Neuts % (Manual) Lymphocytes % (Manual) Monocytes % (Manual) Seg Neutrophils # Seg Neutrophils # Man Lymphocytes # (Manual) Monocytes # (Manual) Eosinophils # (Manual) Basophils # (Manual) PT INR APTT ABG pH ABG pO2 73.6 L ABG HCO3 ABG O2 Saturation ABG Base Excess ABG Hemoglobin 7.6 L Oxyhemoglobin 94.0 L Sodium Potassium Chloride Carbon Dioxide BUN Creatinine Glucose POC Glucose 174 H 150 H Lactic Acid Calcium Ionized Calcium Phosphorus Magnesium Total Bilirubin AST ALT Alkaline Phosphatase Ammonia Total Creatine Kinase CK-MB (CK-2) CK-MB (CK-2) Rel Index Total Protein Albumin Urine WBC (Auto) Vancomycin Trough Salicylates Acetaminophen Plasma/Serum Alcohol Crossmatch 12/15/19 12/15/19 12/15/19 00:28 05:27 07:23 WBC 30.0 H RBC 3.11 L Hgb 8.6 L Hct 27.7 L MCH RDW 20.0 H Plt Count 473 H Lymph % (Auto) [place] % (Auto) [place] # Baso # Seg Neutrophils % Seg Neuts % (Manual) Lymphocytes % (Manual) Monocytes % (Manual) Seg Neutrophils # Seg Neutrophils # Man Lymphocytes # (Manual) Monocytes # (Manual) Eosinophils # (Manual) Basophils # (Manual) PT INR APTT ABG pH ABG pO2 ABG HCO3 ABG O2 Saturation ABG Base Excess ABG Hemoglobin Oxyhemoglobin Sodium Potassium Chloride Carbon Dioxide BUN Creatinine Glucose POC Glucose 167 H 148 H Lactic Acid Calcium Ionized Calcium Phosphorus Magnesium Total Bilirubin AST ALT Alkaline Phosphatase Ammonia Total Creatine Kinase CK-MB (CK-2) CK-MB (CK-2) Rel Index Total Protein Albumin Urine WBC (Auto) Vancomycin Trough Salicylates Acetaminophen Plasma/Serum Alcohol Crossmatch 12/15/19 12/15/19 12/15/19 07:23 12:21 17:41 WBC RBC Hgb Hct MCH RDW Plt Count Lymph % (Auto) [place] % (Auto) [place] # Baso # Seg Neutrophils % Seg Neuts % (Manual) Lymphocytes % (Manual) Monocytes % (Manual) Seg Neutrophils # Seg Neutrophils # Man Lymphocytes # (Manual) Monocytes # (Manual) Eosinophils # (Manual) Basophils # (Manual) PT INR APTT ABG pH ABG pO2 ABG HCO3 ABG O2 Saturation ABG Base Excess ABG Hemoglobin Oxyhemoglobin Sodium 147 H Potassium 3.5 L D Chloride 111.2 H Carbon Dioxide 19 L BUN 29 H Creatinine Glucose 126 H POC Glucose 154 H 144 H Lactic Acid Calcium Ionized Calcium Phosphorus Magnesium Total Bilirubin AST ALT Alkaline Phosphatase Ammonia Total Creatine Kinase CK-MB (CK-2) CK-MB (CK-2) Rel Index Total Protein Albumin Urine WBC (Auto) Vancomycin Trough Salicylates Acetaminophen Plasma/Serum Alcohol Crossmatch 12/16/19 12/16/19 12/16/19 00:22 05:30 05:44 WBC 30.8 H RBC 2.58 L Hgb 7.1 L Hct 22.7 L MCH RDW 19.6 H Plt Count 451 H Lymph % (Auto) [place] % (Auto) [place] # Baso # Seg Neutrophils % Seg Neuts % (Manual) Lymphocytes % (Manual) Monocytes % (Manual) Seg Neutrophils # Seg Neutrophils # Man Lymphocytes # (Manual) Monocytes # (Manual) Eosinophils # (Manual) Basophils # (Manual) PT INR APTT ABG pH ABG pO2 ABG HCO3 ABG O2 Saturation ABG Base Excess ABG Hemoglobin Oxyhemoglobin Sodium Potassium Chloride Carbon Dioxide BUN Creatinine Glucose POC Glucose 139 H 126 H Lactic Acid Calcium Ionized Calcium Phosphorus Magnesium Total Bilirubin AST ALT Alkaline Phosphatase Ammonia Total Creatine Kinase CK-MB (CK-2) CK-MB (CK-2) Rel Index Total Protein Albumin Urine WBC (Auto) Vancomycin Trough Salicylates Acetaminophen Plasma/Serum Alcohol Crossmatch 12/16/19 12/16/19 12/16/19 05:44 11:48 17:37 WBC RBC Hgb Hct MCH RDW Plt Count Lymph % (Auto) [place] % (Auto) [place] # Baso # Seg Neutrophils % Seg Neuts % (Manual) Lymphocytes % (Manual) Monocytes % (Manual) Seg Neutrophils # Seg Neutrophils # Man Lymphocytes # (Manual) Monocytes # (Manual) Eosinophils # (Manual) Basophils # (Manual) PT INR APTT ABG pH ABG pO2 ABG HCO3 ABG O2 Saturation ABG Base Excess ABG Hemoglobin Oxyhemoglobin Sodium Potassium 3.4 L Chloride 109.2 H Carbon Dioxide 19 L BUN 27 H Creatinine Glucose 124 H POC Glucose 125 H 148 H Lactic Acid Calcium Ionized Calcium Phosphorus Magnesium Total Bilirubin AST ALT Alkaline Phosphatase Ammonia Total Creatine Kinase CK-MB (CK-2) CK-MB (CK-2) Rel Index Total Protein Albumin Urine WBC (Auto) Vancomycin Trough Salicylates Acetaminophen Plasma/Serum Alcohol Crossmatch 12/16/19 12/17/19 12/17/19 23:43 05:28 12:47 WBC RBC Hgb Hct MCH RDW Plt Count Lymph % (Auto) [place] % (Auto) [place] # Baso # Seg Neutrophils % Seg Neuts % (Manual) Lymphocytes % (Manual) Monocytes % (Manual) Seg Neutrophils # Seg Neutrophils # Man Lymphocytes # (Manual) Monocytes # (Manual) Eosinophils # (Manual) Basophils # (Manual) PT INR APTT ABG pH ABG pO2 ABG HCO3 ABG O2 Saturation ABG Base Excess ABG Hemoglobin Oxyhemoglobin Sodium Potassium Chloride Carbon Dioxide BUN Creatinine Glucose POC Glucose 142 H 140 H 125 H Lactic Acid Calcium Ionized Calcium Phosphorus Magnesium Total Bilirubin AST ALT Alkaline Phosphatase Ammonia Total Creatine Kinase CK-MB (CK-2) CK-MB (CK-2) Rel Index Total Protein Albumin Urine WBC (Auto) Vancomycin Trough Salicylates Acetaminophen Plasma/Serum Alcohol Crossmatch 12/17/19 12/17/19 12/17/19 17:05 18:00 Unknown WBC RBC Hgb Hct MCH RDW Plt Count Lymph % (Auto) [place] % (Auto) [place] # Baso # Seg Neutrophils % Seg Neuts % (Manual) Lymphocytes % (Manual) Monocytes % (Manual) Seg Neutrophils # Seg Neutrophils # Man Lymphocytes # (Manual) Monocytes # (Manual) Eosinophils # (Manual) Basophils # (Manual) PT INR APTT ABG pH ABG pO2 68.1 L ABG HCO3 ABG O2 Saturation 93.7 L ABG Base Excess ABG Hemoglobin 5.0 L Oxyhemoglobin 91.7 L Sodium Potassium Chloride Carbon Dioxide BUN Creatinine Glucose POC Glucose 140 H Lactic Acid Calcium Ionized Calcium Phosphorus Magnesium Total Bilirubin AST ALT Alkaline Phosphatase Ammonia Total Creatine Kinase CK-MB (CK-2) CK-MB (CK-2) Rel Index Total Protein Albumin Urine WBC (Auto) Vancomycin Trough Salicylates Acetaminophen Plasma/Serum Alcohol Crossmatch 12/18/19 12/18/19 12/18/19 00:16 04:53 04:53 WBC 28.6 H RBC 2.27 L Hgb 6.3 L Hct 19.5 L* MCH RDW 20.0 H Plt Count 497 H Lymph % (Auto) [place] % (Auto) [place] # Baso # Seg Neutrophils % Seg Neuts % (Manual) Lymphocytes % (Manual) Monocytes % (Manual) Seg Neutrophils # Seg Neutrophils # Man Lymphocytes # (Manual) Monocytes # (Manual) Eosinophils # (Manual) Basophils # (Manual) PT INR APTT ABG pH ABG pO2 ABG HCO3 ABG O2 Saturation ABG Base Excess ABG Hemoglobin Oxyhemoglobin Sodium Potassium Chloride 107.9 H Carbon Dioxide 20 L BUN 27 H Creatinine 0.6 L Glucose 116 H POC Glucose 123 H Lactic Acid Calcium Ionized Calcium Phosphorus Magnesium Total Bilirubin AST ALT Alkaline Phosphatase Ammonia Total Creatine Kinase CK-MB (CK-2) CK-MB (CK-2) Rel Index Total Protein Albumin Urine WBC (Auto) Vancomycin Trough Salicylates Acetaminophen Plasma/Serum Alcohol Crossmatch 12/18/19 12/18/19 12/18/19 06:38 11:22 12:08 WBC RBC Hgb Hct MCH RDW Plt Count Lymph % (Auto) [place] % (Auto) [place] # Baso # Seg Neutrophils % Seg Neuts % (Manual) Lymphocytes % (Manual) Monocytes % (Manual) Seg Neutrophils # Seg Neutrophils # Man Lymphocytes # (Manual) Monocytes # (Manual) Eosinophils # (Manual) Basophils # (Manual) PT INR APTT ABG pH ABG pO2 ABG HCO3 ABG O2 Saturation ABG Base Excess ABG Hemoglobin Oxyhemoglobin Sodium Potassium Chloride Carbon Dioxide BUN Creatinine Glucose POC Glucose 120 H 127 H Lactic Acid Calcium Ionized Calcium Phosphorus Magnesium Total Bilirubin AST ALT Alkaline Phosphatase Ammonia Total Creatine Kinase CK-MB (CK-2) CK-MB (CK-2) Rel Index Total Protein Albumin Urine WBC (Auto) Vancomycin Trough Salicylates Acetaminophen Plasma/Serum Alcohol Crossmatch See Detail 12/18/19 12/18/19 12/18/19 14:05 17:49 23:53 WBC RBC Hgb Hct MCH RDW Plt Count Lymph % (Auto) [place] % (Auto) [place] # Baso # Seg Neutrophils % Seg Neuts % (Manual) Lymphocytes % (Manual) Monocytes % (Manual) Seg Neutrophils # Seg Neutrophils # Man Lymphocytes # (Manual) Monocytes # (Manual) Eosinophils # (Manual) Basophils # (Manual) PT INR APTT ABG pH 7.267 L ABG pO2 69.8 L ABG HCO3 ABG O2 Saturation 88.4 L ABG Base Excess ABG Hemoglobin 7.1 L Oxyhemoglobin 86.4 L Sodium Potassium Chloride Carbon Dioxide BUN Creatinine Glucose POC Glucose 157 H 128 H Lactic Acid Calcium Ionized Calcium Phosphorus Magnesium Total Bilirubin AST ALT Alkaline Phosphatase Ammonia Total Creatine Kinase CK-MB (CK-2) CK-MB (CK-2) Rel Index Total Protein Albumin Urine WBC (Auto) Vancomycin Trough Salicylates Acetaminophen Plasma/Serum Alcohol Crossmatch 12/19/19 12/19/19 12/19/19 03:37 03:37 05:25 WBC 31.3 H RBC 2.60 L Hgb 7.6 L Hct 23.0 L MCH RDW 19.4 H Plt Count 530 H Lymph % (Auto) [place] % (Auto) [place] # Baso # Seg Neutrophils % Seg Neuts % (Manual) Lymphocytes % (Manual) Monocytes % (Manual) Seg Neutrophils # Seg Neutrophils # Man Lymphocytes # (Manual) Monocytes # (Manual) Eosinophils # (Manual) Basophils # (Manual) PT INR APTT ABG pH ABG pO2 ABG HCO3 ABG O2 Saturation ABG Base Excess ABG Hemoglobin Oxyhemoglobin Sodium Potassium Chloride Carbon Dioxide 18 L BUN 36 H Creatinine Glucose 111 H POC Glucose 123 H Lactic Acid Calcium Ionized Calcium Phosphorus Magnesium Total Bilirubin AST ALT Alkaline Phosphatase Ammonia Total Creatine Kinase CK-MB (CK-2) CK-MB (CK-2) Rel Index Total Protein Albumin Urine WBC (Auto) Vancomycin Trough Salicylates Acetaminophen Plasma/Serum Alcohol Crossmatch 12/19/19 12/19/19 12/20/19 12:59 18:33 00:00 WBC RBC Hgb Hct MCH RDW Plt Count Lymph % (Auto) [place] % (Auto) [place] # Baso # Seg Neutrophils % Seg Neuts % (Manual) Lymphocytes % (Manual) Monocytes % (Manual) Seg Neutrophils # Seg Neutrophils # Man Lymphocytes # (Manual) Monocytes # (Manual) Eosinophils # (Manual) Basophils # (Manual) PT INR APTT ABG pH ABG pO2 ABG HCO3 ABG O2 Saturation ABG Base Excess ABG Hemoglobin Oxyhemoglobin Sodium Potassium Chloride Carbon Dioxide BUN Creatinine Glucose POC Glucose 130 H 118 H 135 H Lactic Acid Calcium Ionized Calcium Phosphorus Magnesium Total Bilirubin AST ALT Alkaline Phosphatase Ammonia Total Creatine Kinase CK-MB (CK-2) CK-MB (CK-2) Rel Index Total Protein Albumin Urine WBC (Auto) Vancomycin Trough Salicylates Acetaminophen Plasma/Serum Alcohol Crossmatch 12/20/19 12/20/19 12/20/19 05:46 12:31 18:07 WBC RBC Hgb Hct MCH RDW Plt Count Lymph % (Auto) [place] % (Auto) [place] # Baso # Seg Neutrophils % Seg Neuts % (Manual) Lymphocytes % (Manual) Monocytes % (Manual) Seg Neutrophils # Seg Neutrophils # Man Lymphocytes # (Manual) Monocytes # (Manual) Eosinophils # (Manual) Basophils # (Manual) PT INR APTT ABG pH ABG pO2 ABG HCO3 ABG O2 Saturation ABG Base Excess ABG Hemoglobin Oxyhemoglobin Sodium Potassium Chloride Carbon Dioxide BUN Creatinine Glucose POC Glucose 131 H 128 H 134 H Lactic Acid Calcium Ionized Calcium Phosphorus Magnesium Total Bilirubin AST ALT Alkaline Phosphatase Ammonia Total Creatine Kinase CK-MB (CK-2) CK-MB (CK-2) Rel Index Total Protein Albumin Urine WBC (Auto) Vancomycin Trough Salicylates Acetaminophen Plasma/Serum Alcohol Crossmatch 12/21/19 12/21/19 12/21/19 03:28 03:28 07:21 WBC 29.4 H RBC 2.30 L Hgb 6.8 L Hct 20.2 L MCH RDW 20.2 H Plt Count 746 H Lymph % (Auto) [place] % (Auto) [place] # Baso # Seg Neutrophils % Seg Neuts % (Manual) 85.0 H Lymphocytes % (Manual) 8.0 L Monocytes % (Manual) Seg Neutrophils # Seg Neutrophils # Man 25.0 H Lymphocytes # (Manual) Monocytes # (Manual) 1.5 H Eosinophils # (Manual) 0.6 H Basophils # (Manual) PT INR APTT ABG pH ABG pO2 ABG HCO3 ABG O2 Saturation ABG Base Excess ABG Hemoglobin Oxyhemoglobin Sodium Potassium Chloride Carbon Dioxide 17 L BUN 57 H Creatinine 1.4 H D Glucose POC Glucose 124 H Lactic Acid Calcium Ionized Calcium Phosphorus Magnesium Total Bilirubin AST ALT Alkaline Phosphatase Ammonia Total Creatine Kinase CK-MB (CK-2) CK-MB (CK-2) Rel Index Total Protein Albumin Urine WBC (Auto) Vancomycin Trough Salicylates Acetaminophen Plasma/Serum Alcohol Crossmatch 12/21/19 12/21/19 12/21/19 08:56 12:06 14:53 WBC RBC Hgb 7.2 L Hct 22.9 L MCH RDW Plt Count Lymph % (Auto) [place] % (Auto) [place] # Baso # Seg Neutrophils % Seg Neuts % (Manual) Lymphocytes % (Manual) Monocytes % (Manual) Seg Neutrophils # Seg Neutrophils # Man Lymphocytes # (Manual) Monocytes # (Manual) Eosinophils # (Manual) Basophils # (Manual) PT INR APTT ABG pH ABG pO2 ABG HCO3 ABG O2 Saturation ABG Base Excess ABG Hemoglobin Oxyhemoglobin Sodium Potassium Chloride Carbon Dioxide BUN Creatinine Glucose POC Glucose 116 H Lactic Acid Calcium Ionized Calcium Phosphorus Magnesium Total Bilirubin AST ALT Alkaline Phosphatase Ammonia Total Creatine Kinase CK-MB (CK-2) CK-MB (CK-2) Rel Index Total Protein Albumin Urine WBC (Auto) Vancomycin Trough 33.8 H Salicylates Acetaminophen Plasma/Serum Alcohol Crossmatch 12/21/19 12/21/19 12/21/19 14:54 17:27 23:49 WBC RBC Hgb Hct MCH RDW Plt Count Lymph % (Auto) [place] % (Auto) [place] # Baso # Seg Neutrophils % Seg Neuts % (Manual) Lymphocytes % (Manual) Monocytes % (Manual) Seg Neutrophils # Seg Neutrophils # Man Lymphocytes # (Manual) Monocytes # (Manual) Eosinophils # (Manual) Basophils # (Manual) PT INR APTT ABG pH ABG pO2 ABG HCO3 ABG O2 Saturation ABG Base Excess ABG Hemoglobin Oxyhemoglobin Sodium Potassium Chloride Carbon Dioxide BUN Creatinine Glucose POC Glucose 145 H 127 H Lactic Acid Calcium Ionized Calcium Phosphorus Magnesium Total Bilirubin AST ALT Alkaline Phosphatase Ammonia Total Creatine Kinase CK-MB (CK-2) CK-MB (CK-2) Rel Index Total Protein Albumin Urine WBC (Auto) Vancomycin Trough Salicylates Acetaminophen Plasma/Serum Alcohol Crossmatch See Detail 12/22/19 12/22/19 12/22/19 04:43 05:56 08:40 WBC RBC Hgb Hct MCH RDW Plt Count Lymph % (Auto) [place] % (Auto) [place] # Baso # Seg Neutrophils % Seg Neuts % (Manual) Lymphocytes % (Manual) Monocytes % (Manual) Seg Neutrophils # Seg Neutrophils # Man Lymphocytes # (Manual) Monocytes # (Manual) Eosinophils # (Manual) Basophils # (Manual) PT INR APTT ABG pH ABG pO2 75.6 L ABG HCO3 ABG O2 Saturation ABG Base Excess -2.6 L ABG Hemoglobin 6.8 L Oxyhemoglobin 94.6 L Sodium Potassium Chloride Carbon Dioxide 17 L BUN 60 H Creatinine 1.4 H Glucose 126 H POC Glucose 153 H Lactic Acid Calcium Ionized Calcium Phosphorus Magnesium Total Bilirubin AST ALT Alkaline Phosphatase Ammonia Total Creatine Kinase CK-MB (CK-2) CK-MB (CK-2) Rel Index Total Protein Albumin Urine WBC (Auto) Vancomycin Trough Salicylates Acetaminophen Plasma/Serum Alcohol Crossmatch 12/22/19 12/22/19 12/23/19 12:07 17:49 04:30 WBC 22.4 H RBC 2.68 L Hgb 7.6 L Hct 22.9 L MCH RDW 19.9 H Plt Count 998 H Lymph % (Auto) [place] % (Auto) [place] # Baso # Seg Neutrophils % Seg Neuts % (Manual) 88.0 H Lymphocytes % (Manual) 2.0 L Monocytes % (Manual) 9.0 H Seg Neutrophils # Seg Neutrophils # Man 19.7 H Lymphocytes # (Manual) 0.4 L Monocytes # (Manual) 2.0 H Eosinophils # (Manual) Basophils # (Manual) PT INR APTT ABG pH ABG pO2 ABG HCO3 ABG O2 Saturation ABG Base Excess ABG Hemoglobin Oxyhemoglobin Sodium Potassium Chloride Carbon Dioxide BUN Creatinine Glucose POC Glucose 140 H 116 H Lactic Acid Calcium Ionized Calcium Phosphorus Magnesium Total Bilirubin AST ALT Alkaline Phosphatase Ammonia Total Creatine Kinase CK-MB (CK-2) CK-MB (CK-2) Rel Index Total Protein Albumin Urine WBC (Auto) Vancomycin Trough Salicylates Acetaminophen Plasma/Serum Alcohol Crossmatch 12/23/19 12/23/19 12/23/19 04:30 12:00 18:06 WBC RBC Hgb Hct MCH RDW Plt Count Lymph % (Auto) [place] % (Auto) [place] # Baso # Seg Neutrophils % Seg Neuts % (Manual) Lymphocytes % (Manual) Monocytes % (Manual) Seg Neutrophils # Seg Neutrophils # Man Lymphocytes # (Manual) Monocytes # (Manual) Eosinophils # (Manual) Basophils # (Manual) PT INR APTT ABG pH ABG pO2 ABG HCO3 ABG O2 Saturation ABG Base Excess ABG Hemoglobin Oxyhemoglobin Sodium Potassium 5.2 H Chloride Carbon Dioxide 21 L BUN 69 H Creatinine 1.5 H Glucose 117 H POC Glucose 128 H 138 H Lactic Acid Calcium Ionized Calcium Phosphorus Magnesium Total Bilirubin AST ALT Alkaline Phosphatase Ammonia Total Creatine Kinase CK-MB (CK-2) CK-MB (CK-2) Rel Index Total Protein Albumin Urine WBC (Auto) Vancomycin Trough Salicylates Acetaminophen Plasma/Serum Alcohol Crossmatch 12/23/19 12/24/19 12/24/19 23:46 04:31 05:08 WBC RBC Hgb Hct MCH RDW Plt Count Lymph % (Auto) [place] % (Auto) [place] # Baso # Seg Neutrophils % Seg Neuts % (Manual) Lymphocytes % (Manual) Monocytes % (Manual) Seg Neutrophils # Seg Neutrophils # Man Lymphocytes # (Manual) Monocytes # (Manual) Eosinophils # (Manual) Basophils # (Manual) PT INR APTT ABG pH ABG pO2 ABG HCO3 ABG O2 Saturation ABG Base Excess ABG Hemoglobin Oxyhemoglobin Sodium Potassium 5.3 H Chloride 107.6 H Carbon Dioxide 20 L BUN 72 H Creatinine 1.6 H Glucose 120 H POC Glucose 120 H 140 H Lactic Acid Calcium Ionized Calcium Phosphorus Magnesium Total Bilirubin AST ALT Alkaline Phosphatase Ammonia Total Creatine Kinase CK-MB (CK-2) CK-MB (CK-2) Rel Index Total Protein Albumin Urine WBC (Auto) Vancomycin Trough Salicylates Acetaminophen Plasma/Serum Alcohol Crossmatch 12/24/19 12/24/19 12/25/19 11:58 17:49 03:47 WBC 36.2 H RBC 2.92 L Hgb 8.4 L Hct 26.1 L MCH RDW 20.2 H Plt Count 942 H Lymph % (Auto) [place] % (Auto) [place] # Baso # Seg Neutrophils % Seg Neuts % (Manual) 97.5 H Lymphocytes % (Manual) 1.0 L Monocytes % (Manual) Seg Neutrophils # Seg Neutrophils # Man 35.3 H Lymphocytes # (Manual) 0.4 L Monocytes # (Manual) Eosinophils # (Manual) Basophils # (Manual) PT INR APTT ABG pH ABG pO2 ABG HCO3 ABG O2 Saturation ABG Base Excess ABG Hemoglobin Oxyhemoglobin Sodium Potassium Chloride Carbon Dioxide BUN Creatinine Glucose POC Glucose 146 H 131 H Lactic Acid Calcium Ionized Calcium Phosphorus Magnesium Total Bilirubin AST ALT Alkaline Phosphatase Ammonia Total Creatine Kinase CK-MB (CK-2) CK-MB (CK-2) Rel Index Total Protein Albumin Urine WBC (Auto) Vancomycin Trough Salicylates Acetaminophen Plasma/Serum Alcohol Crossmatch 12/25/19 12/25/19 12/25/19 03:47 05:30 12:23 WBC RBC Hgb Hct MCH RDW Plt Count Lymph % (Auto) [place] % (Auto) [place] # Baso # Seg Neutrophils % Seg Neuts % (Manual) Lymphocytes % (Manual) Monocytes % (Manual) Seg Neutrophils # Seg Neutrophils # Man Lymphocytes # (Manual) Monocytes # (Manual) Eosinophils # (Manual) Basophils # (Manual) PT INR APTT ABG pH ABG pO2 ABG HCO3 ABG O2 Saturation ABG Base Excess ABG Hemoglobin Oxyhemoglobin Sodium Potassium Chloride Carbon Dioxide 15 L BUN 70 H Creatinine 1.7 H Glucose 153 H POC Glucose 169 H 135 H Lactic Acid Calcium Ionized Calcium Phosphorus Magnesium Total Bilirubin AST ALT Alkaline Phosphatase Ammonia Total Creatine Kinase CK-MB (CK-2) CK-MB (CK-2) Rel Index Total Protein Albumin Urine WBC (Auto) Vancomycin Trough Salicylates Acetaminophen Plasma/Serum Alcohol Crossmatch 12/25/19 12/25/19 12/26/19 17:37 23:29 09:47 WBC 22.1 H RBC 2.83 L Hgb 7.9 L Hct 25.5 L MCH RDW 20.0 H Plt Count 894 H Lymph % (Auto) [place] % (Auto) [place] # Baso # Seg Neutrophils % Seg Neuts % (Manual) Lymphocytes % (Manual) Monocytes % (Manual) Seg Neutrophils # Seg Neutrophils # Man Lymphocytes # (Manual) Monocytes # (Manual) Eosinophils # (Manual) Basophils # (Manual) PT INR APTT ABG pH ABG pO2 ABG HCO3 ABG O2 Saturation ABG Base Excess ABG Hemoglobin Oxyhemoglobin Sodium Potassium Chloride Carbon Dioxide BUN Creatinine Glucose POC Glucose 120 H 140 H Lactic Acid Calcium Ionized Calcium Phosphorus Magnesium Total Bilirubin AST ALT Alkaline Phosphatase Ammonia Total Creatine Kinase CK-MB (CK-2) CK-MB (CK-2) Rel Index Total Protein Albumin Urine WBC (Auto) Vancomycin Trough Salicylates Acetaminophen Plasma/Serum Alcohol Crossmatch 12/26/19 12/26/19 12/26/19 09:47 11:46 17:52 WBC RBC Hgb Hct MCH RDW Plt Count Lymph % (Auto) [place] % (Auto) [place] # Baso # Seg Neutrophils % Seg Neuts % (Manual) Lymphocytes % (Manual) Monocytes % (Manual) Seg Neutrophils # Seg Neutrophils # Man Lymphocytes # (Manual) Monocytes # (Manual) Eosinophils # (Manual) Basophils # (Manual) PT INR APTT ABG pH ABG pO2 ABG HCO3 ABG O2 Saturation ABG Base Excess ABG Hemoglobin Oxyhemoglobin Sodium Potassium Chloride Carbon Dioxide 18 L BUN 65 H Creatinine 1.4 H Glucose 132 H POC Glucose 110 H 145 H Lactic Acid Calcium Ionized Calcium Phosphorus Magnesium Total Bilirubin AST ALT Alkaline Phosphatase Ammonia Total Creatine Kinase CK-MB (CK-2) CK-MB (CK-2) Rel Index Total Protein Albumin Urine WBC (Auto) Vancomycin Trough Salicylates Acetaminophen Plasma/Serum Alcohol Crossmatch 12/27/19 12/27/19 12/27/19 00:01 03:42 03:42 WBC 18.0 H RBC 2.86 L Hgb 8.0 L Hct 25.2 L MCH RDW 19.2 H Plt Count 873 H Lymph % (Auto) 8.4 L [place] % (Auto) 7.5 H [place] # 1.4 H Baso # 0.2 H Seg Neutrophils % 82.2 H Seg Neuts % (Manual) Lymphocytes % (Manual) Monocytes % (Manual) Seg Neutrophils # 14.8 H Seg Neutrophils # Man Lymphocytes # (Manual) Monocytes # (Manual) Eosinophils # (Manual) Basophils # (Manual) PT INR APTT ABG pH ABG pO2 ABG HCO3 ABG O2 Saturation ABG Base Excess ABG Hemoglobin Oxyhemoglobin Sodium Potassium Chloride Carbon Dioxide BUN 73 H Creatinine 1.4 H Glucose 119 H POC Glucose 124 H Lactic Acid Calcium Ionized Calcium Phosphorus Magnesium Total Bilirubin AST ALT Alkaline Phosphatase Ammonia Total Creatine Kinase CK-MB (CK-2) CK-MB (CK-2) Rel Index Total Protein Albumin Urine WBC (Auto) Vancomycin Trough Salicylates Acetaminophen Plasma/Serum Alcohol Crossmatch 12/27/19 12/27/19 12/27/19 05:45 11:45 17:29 WBC RBC Hgb Hct MCH RDW Plt Count Lymph % (Auto) [place] % (Auto) [place] # Baso # Seg Neutrophils % Seg Neuts % (Manual) Lymphocytes % (Manual) Monocytes % (Manual) Seg Neutrophils # Seg Neutrophils # Man Lymphocytes # (Manual) Monocytes # (Manual) Eosinophils # (Manual) Basophils # (Manual) PT INR APTT ABG pH ABG pO2 ABG HCO3 ABG O2 Saturation ABG Base Excess ABG Hemoglobin Oxyhemoglobin Sodium Potassium Chloride Carbon Dioxide BUN Creatinine Glucose POC Glucose 131 H 123 H 134 H Lactic Acid Calcium Ionized Calcium Phosphorus Magnesium Total Bilirubin AST ALT Alkaline Phosphatase Ammonia Total Creatine Kinase CK-MB (CK-2) CK-MB (CK-2) Rel Index Total Protein Albumin Urine WBC (Auto) Vancomycin Trough Salicylates Acetaminophen Plasma/Serum Alcohol Crossmatch 12/28/19 12/28/19 12/28/19 00:12 05:14 11:53 WBC RBC Hgb Hct MCH RDW Plt Count Lymph % (Auto) [place] % (Auto) [place] # Baso # Seg Neutrophils % Seg Neuts % (Manual) Lymphocytes % (Manual) Monocytes % (Manual) Seg Neutrophils # Seg Neutrophils # Man Lymphocytes # (Manual) Monocytes # (Manual) Eosinophils # (Manual) Basophils # (Manual) PT INR APTT ABG pH ABG pO2 ABG HCO3 ABG O2 Saturation ABG Base Excess ABG Hemoglobin Oxyhemoglobin Sodium Potassium Chloride Carbon Dioxide BUN Creatinine Glucose POC Glucose 138 H 130 H 146 H Lactic Acid Calcium Ionized Calcium Phosphorus Magnesium Total Bilirubin AST ALT Alkaline Phosphatase Ammonia Total Creatine Kinase CK-MB (CK-2) CK-MB (CK-2) Rel Index Total Protein Albumin Urine WBC (Auto) Vancomycin Trough Salicylates Acetaminophen Plasma/Serum Alcohol Crossmatch 12/28/19 12/29/19 12/29/19 17:39 00:01 18:11 WBC RBC Hgb Hct MCH RDW Plt Count Lymph % (Auto) [place] % (Auto) [place] # Baso # Seg Neutrophils % Seg Neuts % (Manual) Lymphocytes % (Manual) Monocytes % (Manual) Seg Neutrophils # Seg Neutrophils # Man Lymphocytes # (Manual) Monocytes # (Manual) Eosinophils # (Manual) Basophils # (Manual) PT INR APTT ABG pH ABG pO2 ABG HCO3 ABG O2 Saturation ABG Base Excess ABG Hemoglobin Oxyhemoglobin Sodium Potassium Chloride Carbon Dioxide BUN Creatinine Glucose POC Glucose 117 H 139 H 130 H Lactic Acid Calcium Ionized Calcium Phosphorus Magnesium Total Bilirubin AST ALT Alkaline Phosphatase Ammonia Total Creatine Kinase CK-MB (CK-2) CK-MB (CK-2) Rel Index Total Protein Albumin Urine WBC (Auto) Vancomycin Trough Salicylates Acetaminophen Plasma/Serum Alcohol Crossmatch 12/29/19 12/30/19 12/30/19 23:09 00:02 01:06 WBC 16.7 H RBC 2.91 L Hgb 8.2 L Hct 25.4 L MCH RDW 18.7 H Plt Count 708 H Lymph % (Auto) 9.4 L [place] % (Auto) [place] # 0.9 H Baso # Seg Neutrophils % 83.5 H Seg Neuts % (Manual) Lymphocytes % (Manual) Monocytes % (Manual) Seg Neutrophils # 14.0 H Seg Neutrophils # Man Lymphocytes # (Manual) Monocytes # (Manual) Eosinophils # (Manual) Basophils # (Manual) PT INR APTT ABG pH ABG pO2 ABG HCO3 ABG O2 Saturation ABG Base Excess ABG Hemoglobin Oxyhemoglobin Sodium Potassium Chloride Carbon Dioxide BUN Creatinine Glucose POC Glucose 120 H 114 H Lactic Acid Calcium Ionized Calcium Phosphorus Magnesium Total Bilirubin AST ALT Alkaline Phosphatase Ammonia Total Creatine Kinase CK-MB (CK-2) CK-MB (CK-2) Rel Index Total Protein Albumin Urine WBC (Auto) Vancomycin Trough Salicylates Acetaminophen Plasma/Serum Alcohol Crossmatch 12/30/19 12/30/19 12/30/19 01:06 04:23 05:18 WBC RBC Hgb Hct MCH RDW Plt Count Lymph % (Auto) [place] % (Auto) [place] # Baso # Seg Neutrophils % Seg Neuts % (Manual) Lymphocytes % (Manual) Monocytes % (Manual) Seg Neutrophils # Seg Neutrophils # Man Lymphocytes # (Manual) Monocytes # (Manual) Eosinophils # (Manual) Basophils # (Manual) PT INR APTT ABG pH ABG pO2 ABG HCO3 ABG O2 Saturation ABG Base Excess ABG Hemoglobin 8.3 L Oxyhemoglobin Sodium Potassium Chloride Carbon Dioxide BUN 70 H Creatinine Glucose 122 H POC Glucose 130 H Lactic Acid Calcium Ionized Calcium Phosphorus Magnesium Total Bilirubin AST ALT Alkaline Phosphatase Ammonia Total Creatine Kinase CK-MB (CK-2) CK-MB (CK-2) Rel Index Total Protein Albumin Urine WBC (Auto) Vancomycin Trough Salicylates Acetaminophen Plasma/Serum Alcohol Crossmatch 12/30/19 12/30/19 12/30/19 05:40 12:17 17:43 WBC RBC Hgb Hct MCH RDW Plt Count Lymph % (Auto) [place] % (Auto) [place] # Baso # Seg Neutrophils % Seg Neuts % (Manual) Lymphocytes % (Manual) Monocytes % (Manual) Seg Neutrophils # Seg Neutrophils # Man Lymphocytes # (Manual) Monocytes # (Manual) Eosinophils # (Manual) Basophils # (Manual) PT INR APTT ABG pH ABG pO2 ABG HCO3 ABG O2 Saturation ABG Base Excess ABG Hemoglobin Oxyhemoglobin Sodium Potassium Chloride Carbon Dioxide BUN Creatinine Glucose POC Glucose 135 H 132 H 118 H Lactic Acid Calcium Ionized Calcium Phosphorus Magnesium Total Bilirubin AST ALT Alkaline Phosphatase Ammonia Total Creatine Kinase CK-MB (CK-2) CK-MB (CK-2) Rel Index Total Protein Albumin Urine WBC (Auto) Vancomycin Trough Salicylates Acetaminophen Plasma/Serum Alcohol Crossmatch 12/30/19 12/31/19 12/31/19 23:29 05:19 17:50 WBC RBC Hgb Hct MCH RDW Plt Count Lymph % (Auto) [place] % (Auto) [place] # Baso # Seg Neutrophils % Seg Neuts % (Manual) Lymphocytes % (Manual) Monocytes % (Manual) Seg Neutrophils # Seg Neutrophils # Man Lymphocytes # (Manual) Monocytes # (Manual) Eosinophils # (Manual) Basophils # (Manual) PT INR APTT ABG pH ABG pO2 ABG HCO3 ABG O2 Saturation ABG Base Excess ABG Hemoglobin Oxyhemoglobin Sodium Potassium Chloride Carbon Dioxide BUN Creatinine Glucose POC Glucose 114 H 109 H 116 H Lactic Acid Calcium Ionized Calcium Phosphorus Magnesium Total Bilirubin AST ALT Alkaline Phosphatase Ammonia Total Creatine Kinase CK-MB (CK-2) CK-MB (CK-2) Rel Index Total Protein Albumin Urine WBC (Auto) Vancomycin Trough Salicylates Acetaminophen Plasma/Serum Alcohol Crossmatch 01/01/20 01/01/20 01/01/20 00:10 05:19 12:02 WBC RBC Hgb Hct MCH RDW Plt Count Lymph % (Auto) [place] % (Auto) [place] # Baso # Seg Neutrophils % Seg Neuts % (Manual) Lymphocytes % (Manual) Monocytes % (Manual) Seg Neutrophils # Seg Neutrophils # Man Lymphocytes # (Manual) Monocytes # (Manual) Eosinophils # (Manual) Basophils # (Manual) PT INR APTT ABG pH ABG pO2 ABG HCO3 ABG O2 Saturation ABG Base Excess ABG Hemoglobin Oxyhemoglobin Sodium Potassium Chloride Carbon Dioxide BUN Creatinine Glucose POC Glucose 131 H 122 H 136 H Lactic Acid Calcium Ionized Calcium Phosphorus Magnesium Total Bilirubin AST ALT Alkaline Phosphatase Ammonia Total Creatine Kinase CK-MB (CK-2) CK-MB (CK-2) Rel Index Total Protein Albumin Urine WBC (Auto) Vancomycin Trough Salicylates Acetaminophen Plasma/Serum Alcohol Crossmatch 01/02/20 01/02/20 01/02/20 00:24 05:36 11:41 WBC RBC Hgb Hct MCH RDW Plt Count Lymph % (Auto) [place] % (Auto) [place] # Baso # Seg Neutrophils % Seg Neuts % (Manual) Lymphocytes % (Manual) Monocytes % (Manual) Seg Neutrophils # Seg Neutrophils # Man Lymphocytes # (Manual) Monocytes # (Manual) Eosinophils # (Manual) Basophils # (Manual) PT INR APTT ABG pH ABG pO2 ABG HCO3 ABG O2 Saturation ABG Base Excess ABG Hemoglobin Oxyhemoglobin Sodium Potassium Chloride Carbon Dioxide BUN Creatinine Glucose POC Glucose 119 H 109 H 125 H Lactic Acid Calcium Ionized Calcium Phosphorus Magnesium Total Bilirubin AST ALT Alkaline Phosphatase Ammonia Total Creatine Kinase CK-MB (CK-2) CK-MB (CK-2) Rel Index Total Protein Albumin Urine WBC (Auto) Vancomycin Trough Salicylates Acetaminophen Plasma/Serum Alcohol Crossmatch 01/02/20 01/03/20 01/03/20 17:49 05:29 12:13 WBC RBC Hgb Hct MCH RDW Plt Count Lymph % (Auto) [place] % (Auto) [place] # Baso # Seg Neutrophils % Seg Neuts % (Manual) Lymphocytes % (Manual) Monocytes % (Manual) Seg Neutrophils # Seg Neutrophils # Man Lymphocytes # (Manual) Monocytes # (Manual) Eosinophils # (Manual) Basophils # (Manual) PT INR APTT ABG pH ABG pO2 ABG HCO3 ABG O2 Saturation ABG Base Excess ABG Hemoglobin Oxyhemoglobin Sodium Potassium Chloride Carbon Dioxide BUN Creatinine Glucose POC Glucose 130 H 132 H 113 H Lactic Acid Calcium Ionized Calcium Phosphorus Magnesium Total Bilirubin AST ALT Alkaline Phosphatase Ammonia Total Creatine Kinase CK-MB (CK-2) CK-MB (CK-2) Rel Index Total Protein Albumin Urine WBC (Auto) Vancomycin Trough Salicylates Acetaminophen Plasma/Serum Alcohol Crossmatch 01/03/20 01/04/20 01/04/20 17:32 00:19 05:26 WBC RBC Hgb Hct MCH RDW Plt Count Lymph % (Auto) [place] % (Auto) [place] # Baso # Seg Neutrophils % Seg Neuts % (Manual) Lymphocytes % (Manual) Monocytes % (Manual) Seg Neutrophils # Seg Neutrophils # Man Lymphocytes # (Manual) Monocytes # (Manual) Eosinophils # (Manual) Basophils # (Manual) PT INR APTT ABG pH ABG pO2 ABG HCO3 ABG O2 Saturation ABG Base Excess ABG Hemoglobin Oxyhemoglobin Sodium Potassium Chloride Carbon Dioxide BUN Creatinine Glucose POC Glucose 127 H 141 H 129 H Lactic Acid Calcium Ionized Calcium Phosphorus Magnesium Total Bilirubin AST ALT Alkaline Phosphatase Ammonia Total Creatine Kinase CK-MB (CK-2) CK-MB (CK-2) Rel Index Total Protein Albumin Urine WBC (Auto) Vancomycin Trough Salicylates Acetaminophen Plasma/Serum Alcohol Crossmatch 01/04/20 01/04/20 01/05/20 11:39 17:29 05:22 WBC RBC Hgb Hct MCH RDW Plt Count Lymph % (Auto) [place] % (Auto) [place] # Baso # Seg Neutrophils % Seg Neuts % (Manual) Lymphocytes % (Manual) Monocytes % (Manual) Seg Neutrophils # Seg Neutrophils # Man Lymphocytes # (Manual) Monocytes # (Manual) Eosinophils # (Manual) Basophils # (Manual) PT INR APTT ABG pH ABG pO2 ABG HCO3 ABG O2 Saturation ABG Base Excess ABG Hemoglobin Oxyhemoglobin Sodium Potassium Chloride Carbon Dioxide BUN Creatinine Glucose POC Glucose 167 H 132 H 121 H Lactic Acid Calcium Ionized Calcium Phosphorus Magnesium Total Bilirubin AST ALT Alkaline Phosphatase Ammonia Total Creatine Kinase CK-MB (CK-2) CK-MB (CK-2) Rel Index Total Protein Albumin Urine WBC (Auto) Vancomycin Trough Salicylates Acetaminophen Plasma/Serum Alcohol Crossmatch 01/05/20 01/05/20 01/05/20 12:25 17:40 18:06 WBC RBC Hgb Hct MCH RDW Plt Count Lymph % (Auto) [place] % (Auto) [place] # Baso # Seg Neutrophils % Seg Neuts % (Manual) Lymphocytes % (Manual) Monocytes % (Manual) Seg Neutrophils # Seg Neutrophils # Man Lymphocytes # (Manual) Monocytes # (Manual) Eosinophils # (Manual) Basophils # (Manual) PT INR APTT ABG pH 7.472 H ABG pO2 99.2 H ABG HCO3 ABG O2 Saturation ABG Base Excess ABG Hemoglobin 7.8 L Oxyhemoglobin Sodium Potassium Chloride Carbon Dioxide BUN Creatinine Glucose POC Glucose 106 H 110 H Lactic Acid Calcium Ionized Calcium Phosphorus Magnesium Total Bilirubin AST ALT Alkaline Phosphatase Ammonia Total Creatine Kinase CK-MB (CK-2) CK-MB (CK-2) Rel Index Total Protein Albumin Urine WBC (Auto) Vancomycin Trough Salicylates Acetaminophen Plasma/Serum Alcohol Crossmatch 01/06/20 01/06/20 01/06/20 00:11 05:16 11:30 WBC RBC Hgb Hct MCH RDW Plt Count Lymph % (Auto) [place] % (Auto) [place] # Baso # Seg Neutrophils % Seg Neuts % (Manual) Lymphocytes % (Manual) Monocytes % (Manual) Seg Neutrophils # Seg Neutrophils # Man Lymphocytes # (Manual) Monocytes # (Manual) Eosinophils # (Manual) Basophils # (Manual) PT INR APTT ABG pH ABG pO2 ABG HCO3 ABG O2 Saturation ABG Base Excess ABG Hemoglobin Oxyhemoglobin Sodium Potassium Chloride Carbon Dioxide BUN Creatinine Glucose POC Glucose 108 H 124 H 125 H Lactic Acid Calcium Ionized Calcium Phosphorus Magnesium Total Bilirubin AST ALT Alkaline Phosphatase Ammonia Total Creatine Kinase CK-MB (CK-2) CK-MB (CK-2) Rel Index Total Protein Albumin Urine WBC (Auto) Vancomycin Trough Salicylates Acetaminophen Plasma/Serum Alcohol Crossmatch 01/06/20 01/06/20 01/07/20 17:53 23:51 04:12 WBC 16.5 H RBC 3.29 L Hgb 9.3 L Hct 28.1 L MCH RDW 18.2 H Plt Count 526 H Lymph % (Auto) 8.4 L [place] % (Auto) [place] # 1.0 H Baso # Seg Neutrophils % 84.4 H Seg Neuts % (Manual) Lymphocytes % (Manual) Monocytes % (Manual) Seg Neutrophils # 13.9 H Seg Neutrophils # Man Lymphocytes # (Manual) Monocytes # (Manual) Eosinophils # (Manual) Basophils # (Manual) PT INR APTT ABG pH ABG pO2 ABG HCO3 ABG O2 Saturation ABG Base Excess ABG Hemoglobin Oxyhemoglobin Sodium Potassium Chloride Carbon Dioxide BUN Creatinine Glucose POC Glucose 166 H 128 H Lactic Acid Calcium Ionized Calcium Phosphorus Magnesium Total Bilirubin AST ALT Alkaline Phosphatase Ammonia Total Creatine Kinase CK-MB (CK-2) CK-MB (CK-2) Rel Index Total Protein Albumin Urine WBC (Auto) Vancomycin Trough Salicylates Acetaminophen Plasma/Serum Alcohol Crossmatch 01/07/20 01/07/20 01/07/20 04:12 04:45 11:51 WBC RBC Hgb Hct MCH RDW Plt Count Lymph % (Auto) [place] % (Auto) [place] # Baso # Seg Neutrophils % Seg Neuts % (Manual) Lymphocytes % (Manual) Monocytes % (Manual) Seg Neutrophils # Seg Neutrophils # Man Lymphocytes # (Manual) Monocytes # (Manual) Eosinophils # (Manual) Basophils # (Manual) PT INR APTT ABG pH ABG pO2 ABG HCO3 ABG O2 Saturation ABG Base Excess ABG Hemoglobin Oxyhemoglobin Sodium 136 L Potassium Chloride Carbon Dioxide 21 L BUN 44 H Creatinine 0.6 L Glucose 124 H POC Glucose 134 H 138 H Lactic Acid Calcium Ionized Calcium Phosphorus Magnesium Total Bilirubin AST ALT Alkaline Phosphatase Ammonia Total Creatine Kinase CK-MB (CK-2) CK-MB (CK-2) Rel Index Total Protein Albumin Urine WBC (Auto) Vancomycin Trough Salicylates Acetaminophen Plasma/Serum Alcohol Crossmatch 01/07/20 01/08/20 01/08/20 17:36 00:33 05:29 WBC RBC Hgb Hct MCH RDW Plt Count Lymph % (Auto) [place] % (Auto) [place] # Baso # Seg Neutrophils % Seg Neuts % (Manual) Lymphocytes % (Manual) Monocytes % (Manual) Seg Neutrophils # Seg Neutrophils # Man Lymphocytes # (Manual) Monocytes # (Manual) Eosinophils # (Manual) Basophils # (Manual) PT INR APTT ABG pH ABG pO2 ABG HCO3 ABG O2 Saturation ABG Base Excess ABG Hemoglobin Oxyhemoglobin Sodium Potassium Chloride Carbon Dioxide BUN Creatinine Glucose POC Glucose 128 H 119 H 124 H Lactic Acid Calcium Ionized Calcium Phosphorus Magnesium Total Bilirubin AST ALT Alkaline Phosphatase Ammonia Total Creatine Kinase CK-MB (CK-2) CK-MB (CK-2) Rel Index Total Protein Albumin Urine WBC (Auto) Vancomycin Trough Salicylates Acetaminophen Plasma/Serum Alcohol Crossmatch 01/08/20 01/08/20 01/08/20 12:51 20:25 23:22 WBC RBC Hgb Hct MCH RDW Plt Count Lymph % (Auto) [place] % (Auto) [place] # Baso # Seg Neutrophils % Seg Neuts % (Manual) Lymphocytes % (Manual) Monocytes % (Manual) Seg Neutrophils # Seg Neutrophils # Man Lymphocytes # (Manual) Monocytes # (Manual) Eosinophils # (Manual) Basophils # (Manual) PT INR APTT ABG pH ABG pO2 132.2 H ABG HCO3 ABG O2 Saturation ABG Base Excess ABG Hemoglobin Oxyhemoglobin Sodium Potassium Chloride Carbon Dioxide BUN Creatinine Glucose POC Glucose 128 H 127 H Lactic Acid Calcium Ionized Calcium Phosphorus Magnesium Total Bilirubin AST ALT Alkaline Phosphatase Ammonia Total Creatine Kinase CK-MB (CK-2) CK-MB (CK-2) Rel Index Total Protein Albumin Urine WBC (Auto) Vancomycin Trough Salicylates Acetaminophen Plasma/Serum Alcohol Crossmatch 01/09/20 01/09/20 01/09/20 05:48 08:51 11:29 WBC RBC Hgb Hct MCH RDW Plt Count Lymph % (Auto) [place] % (Auto) [place] # Baso # Seg Neutrophils % Seg Neuts % (Manual) Lymphocytes % (Manual) Monocytes % (Manual) Seg Neutrophils # Seg Neutrophils # Man Lymphocytes # (Manual) Monocytes # (Manual) Eosinophils # (Manual) Basophils # (Manual) PT INR APTT ABG pH ABG pO2 94.3 H ABG HCO3 ABG O2 Saturation ABG Base Excess ABG Hemoglobin 9.5 L Oxyhemoglobin Sodium Potassium Chloride Carbon Dioxide BUN Creatinine Glucose POC Glucose 120 H 112 H Lactic Acid Calcium Ionized Calcium Phosphorus Magnesium Total Bilirubin AST ALT Alkaline Phosphatase Ammonia Total Creatine Kinase CK-MB (CK-2) CK-MB (CK-2) Rel Index Total Protein Albumin Urine WBC (Auto) Vancomycin Trough Salicylates Acetaminophen Plasma/Serum Alcohol Crossmatch 01/09/20 01/10/20 01/10/20 17:57 05:17 12:28 WBC RBC Hgb Hct MCH RDW Plt Count Lymph % (Auto) [place] % (Auto) [place] # Baso # Seg Neutrophils % Seg Neuts % (Manual) Lymphocytes % (Manual) Monocytes % (Manual) Seg Neutrophils # Seg Neutrophils # Man Lymphocytes # (Manual) Monocytes # (Manual) Eosinophils # (Manual) Basophils # (Manual) PT INR APTT ABG pH ABG pO2 ABG HCO3 ABG O2 Saturation ABG Base Excess ABG Hemoglobin Oxyhemoglobin Sodium Potassium Chloride Carbon Dioxide BUN Creatinine Glucose POC Glucose 122 H 115 H 116 H Lactic Acid Calcium Ionized Calcium Phosphorus Magnesium Total Bilirubin AST ALT Alkaline Phosphatase Ammonia Total Creatine Kinase CK-MB (CK-2) CK-MB (CK-2) Rel Index Total Protein Albumin Urine WBC (Auto) Vancomycin Trough Salicylates Acetaminophen Plasma/Serum Alcohol Crossmatch Allied health notes reviewed: nursing
[2020-01-10] MEDS: QUEtiapine 100 MG TAB FEEDTUBE SCH (23:30)
--- NOTE | 2020-01-10 23:51 | Progress Note ---
Assessment and Plan / Anoxic brain injury: suspected CT head: No acute abnormality. neurology consult placed, EEG ordered showed Generalized slowing. No seizures or epileptiform activity. Per neurology : Patient found to have intact corneal/VOR/cough reflexes, and is withdrawing lower extremities, therefore patient is not found to be brain . However, given that patient had an out of hospital cardiac arrest, the time of which is uncertain, the likelihood of meaningful neurological recovery is somewhat low. -Patient now opening her eyes and able to follow any command by nodding head /Acute Respiratory failure -s/p intubation, s/p trach and PEG on 12/12 with mechanical ventilation - CTA was done and negative for PE, - Echo quality is poor, showed diastolic dysfunction - continue ICU monitoring - wean OFF O2/vent as tolerated, placed on T-piece but not tolerating /Anemia, microcytic -Continue to hold heparin, transfused 2 units of packed RBC -ordered stool for occult blood - pending /Acute metabolic encephalopathy/toxic encephalopathy due to the above - cont supportive care /Hyperammonemia - likely from liver disease related to EtOH abuse - Patient had elevated ammonia level and treated with lactulose /Metabolic Acidosis -Alcohol ketoacidosis vs hypoprofusion -Continue to monitor /ELevated LFTs, stable now - due to ischemic hepatitis. /Leucocytosis with sepsis - Source MRSA bacteremia and MSSA pneumonia. UA showed pyuria. RUQ US showed no ascites. - Repeat TTE negative for vegetation. Completed 7 days of Ceftriaxone on 11/29/2019. -Treated with Abx vancomycin 1 gm IV q 12 hour total 2 week till 12/30/2019 /MSSA pneumonia: Status post vancomycin till 12/30/2019 /ALcohol USe Disorder - given ongoing Alcohol use almost daily, s/p IV Thiamine - monitor /Severe hypokalemia -Repleted /Seizure disorder: treat with Keppra /H. Influenzae, tracheobronchitis, treated with abx DNR CODE STATUS The high probability of a clinically significant, sudden or life threatening deterioration of the [neurology,respiratory] system(s) required my full and direct attention, intervention and personal management. The aggregate critical care time was [32] minutes. This time is in addition to time spent performing reported procedures but includes the following: [x] Data Review and interpretation [x] Patient assessment and monitoring of vital signs [x] Documentation [x] Medication orders and management Disposition: prognosis guarded. Family okay for DNR, placement pending 12/31/19: still intubated via trach, no restraints needed, FiO2 30%, PEEP 6, Difficulty getting to Hospice, mother wants to kept updated. Patient has 4 kids, 2 sons in nursing home, 1 son is transgender and not involved per mother; Daughter is Deborah who is [employer]K 01/01/20: Still intubated, but patient opening her eyes but does not follow any command. Unable to set up inpatient hospice 01/01 pending placement, patient is self funded 01/02 pending placement, patient is self funded 01/03 pending placement, patient is self funded. still on vent. updated patient's mother 01/04 pending placement, patient is self funded. still on vent. 01/05 pending placement, patient is tolerating T-piece trial today -off vent. 01/06 patient getting T-piece trial daily, need placement. Patient is unfunded 01/08: Pt opened for 24 hours and tolerating T-piece with 8 L O2. Patient is unfunded and unable to find a placement. Family is refusing to accept the patient at home with home hospice. 01/09: daytime T-piece trials as tolerated and continue to rest on AC for now. pending placement Brief History: 54-year-old female with a past medical history of Hypertension, Depression, T obacco use Disorder, Alcohol use Disorder as confirmed by Daughter and pt's mother presents to the hospital status post cardiac arrest at home. EMS found pt in [place]. They were unable to intubate patient with a ET tube because she was clenching down therefore Joe airway placed. Per the ED physician who evaluated pt, Patient presented with a pulse, intermittent respirations, and bagging support via Joe airway with O2 sat of 100%. Accu-Chek of 71 obtained by EMS. She was intubated in the ER and called for admission. Following admission patient was diagnosed with anoxic brain injury, sepsis with MRSA bacteremia and MSSA pneumonia, alcoholic liver disease. Family member initially wished for full code then changed to DNR, patient treated with IV antibiotics for sepsis, status post trach and PEG on 12/13/19. Weaned off from the vent and put on T- piece. Patient is uninsured, waiting for placement, guarded prognosis. Physical exam: General appearance: Present: other (elderly female, open eyes) - EENT Eyes: no scleral icterus, no conjunctival injection, pupil not reactive ENT: clear oral mucosa, dentition normal, no oropharyngeal erythema Ears: bilateral: normal - Neck Neck: trach on place - Respiratory Respiratory effort: other (on T-piece) Respiratory: bilateral: rales - Cardiovascular Rhythm: regular Heart Sounds: Present: S1 & S2. Absent: gallop, rub Extremities: pulses intact, No edema, normal color - Gastrointestinal General gastrointestinal: Present: soft, non-tender, non-distended, normal bowel sounds - Integumentary Integumentary: clear, warm, dry - Musculoskeletal Musculoskeletal: No joint swelling or tenderness - Neurologic Neurologic: other (2+ reflexes throughout). respond to commend and nods head. Moves only right hand - Psychiatric Psychiatric: Unable to assess Subjective Date of service: 01/10/20 Principal diagnosis: Ac cardiopulmonary arrest; Ac hypoxemic resp failure; Acute encephalopathy Interval history: Patient seen and examined Can open her eyes, patient now DNR Discussed with RN at bedside, discussed with family preservation caseworker for disposition planning patient tolerating t-piece Tolerating tube feeding with PEG tube, needs placement/hospice - uninsured Objective - Constitutional Vitals: Vital Signs - 12hr 01/10/20 01/10/20 01/10/20 12:00 13:00 14:00 Temperature 98.0 F Pulse Rate 105 H 112 H 110 H Pulse Rate [ 112 H From Monitor] Pulse Rate [ Right] Respiratory 25 H 21 23 Rate Blood Pressure 123/77 123/77 128/81 O2 Sat by Pulse 99 100 100 Oximetry O2 Sat by Pulse Oximetry [ Assessment] 01/10/20 01/10/20 01/10/20 15:00 16:00 16:52 Temperature 98.4 F Pulse Rate 112 H 110 H 77 Pulse Rate [ 112 H From Monitor] Pulse Rate [ 78 Right] Respiratory 23 28 H Rate Blood Pressure 133/79 120/79 O2 Sat by Pulse 100 100 Oximetry O2 Sat by Pulse Oximetry [ Assessment] 01/10/20 01/10/20 01/10/20 17:00 17:14 18:00 Temperature Pulse Rate 115 H 110 H Pulse Rate [ From Monitor] Pulse Rate [ Right] Respiratory 23 26 H Rate Blood Pressure 125/84 146/94 O2 Sat by Pulse 100 99 Oximetry O2 Sat by Pulse 98 Oximetry [ Assessment] 01/10/20 21:37 Temperature Pulse Rate Pulse Rate [ From Monitor] Pulse Rate [ Right] Respiratory Rate Blood Pressure O2 Sat by Pulse 100 Oximetry O2 Sat by Pulse Oximetry [ Assessment] - Labs CBC & Chem 7: 01/07/20 04:12 01/07/20 04:12 Labs: Abnormal lab results 01/10/20 01/10/20 01/10/20 Range/Units 05:17 12:28 18:25 POC Glucose 115 H 116 H 123 H (70-105)
[2020-01-11 07:11] LABS: Basophils # (Auto) 0.1 K/mm3 (0.0-0.1); Basophils % (Auto) 0.7 % (0.0-1.8); Eosinophils # (Auto) 0.2 K/mm3 (0.0-0.4); Eosinophils % (Auto) 2.1 % (0.0-4.3); Hematocrit 29.3 % (30.3-42.9); Hemoglobin 9.4 gm/dl (10.1-14.3); Lymphocytes # (Auto) 1.8 K/mm3 (1.2-5.4); Lymphocytes % (Auto) 14.8 % (13.4-35.0); Mean Corpuscular HGB Conc 32 % (30-34); Mean Corpuscular Volume 86 fl (79-97); Monocytes # (Auto) 1.1 K/mm3 (0.0-0.8); Monocytes % (Auto) 9.1 % (0.0-7.3); Platelet Count 549 K/mm3 (140-440); Red Cell Distribution Width 18.1 % (13.2-15.2)
[2020-01-11 07:35] LABS: BUN/Creatinine Ratio 76; Blood Urea Nitrogen 38 mg/dL (7-17); Calcium 10.5 mg/dL (8.4-10.2); Hemolysis Index 7
[2020-01-11] MEDS: GLYCOPYRROLATE 1 MG TAB PO SCH ×3 (08:30→20:37)
--- NOTE | 2020-01-11 09:42 | Progress Note ---
Assessment and Plan Assessment and plan: -- Anoxic brain injury: suspected CT head: No acute abnormality. neurology consult placed, EEG ordered showed Generalized slowing. No seizures or epileptiform activity. Per neurology : Patient found to have intact corneal/VOR/cough reflexes, and is withdrawing lower extremities, therefore patient is not found to be brain . However, given that patient had an out of hospital cardiac arrest, the time of which is uncertain, the likelihood of meaningful neurological recovery is somewhat low. -Patient now opening her eyes and able to follow any command by nodding head -- Acute Respiratory failure -s/p intubation, s/p trach and PEG on 12/12 with mechanical ventilation - CTA was done and negative for PE, - Echo quality is poor, showed diastolic dysfunction - continue ICU monitoring - wean OFF O2/vent as tolerated, placed on T-piece but not tolerating /Anemia, microcytic -Continue to hold heparin, transfused 2 units of packed RBC -ordered stool for occult blood - pending /Acute metabolic encephalopathy/toxic encephalopathy due to the above - cont supportive care /Hyperammonemia - likely from liver disease related to EtOH abuse - Patient had elevated ammonia level and treated with lactulose /Metabolic Acidosis -Alcohol ketoacidosis vs hypoprofusion -Continue to monitor /ELevated LFTs, stable now - due to ischemic hepatitis. /Leucocytosis with sepsis - Source MRSA bacteremia and MSSA pneumonia. UA showed pyuria. RUQ US showed no ascites. - Repeat TTE negative for vegetation. Completed 7 days of Ceftriaxone on 11/29/2019. -Treated with Abx vancomycin 1 gm IV q 12 hour total 2 week till 12/30/2019 /MSSA pneumonia: Status post vancomycin till 12/30/2019 /ALcohol USe Disorder - given ongoing Alcohol use almost daily, s/p IV Thiamine - monitor /Severe hypokalemia -Repleted /Seizure disorder: treat with Keppra /H. Influenzae, tracheobronchitis, treated with abx DNR CODE STATUS The high probability of a clinically significant, sudden or life threatening deterioration of the [neurology,respiratory] system(s) required my full and direct attention, intervention and personal management. The aggregate critical care time was [32] minutes. This time is in addition to time spent performing reported procedures but includes the following: [x] Data Review and interpretation [x] Patient assessment and monitoring of vital signs [x] Documentation [x] Medication orders and management Disposition: prognosis guarded. Family okay for DNR, placement pending 12/31/19: still intubated via trach, no restraints needed, FiO2 30%, PEEP 6, Difficulty getting to Hospice, mother wants to kept updated. Patient has 4 kids, 2 sons in fdc, 1 son is transgender and not involved per mother; Daughter is Deborah who is NOK 01/01/20: Still intubated, but patient opening her eyes but does not follow any command. Unable to set up inpatient hospice 01/01 pending placement, patient is self funded 01/02 pending placement, patient is self funded 01/03 pending placement, patient is self funded. still on vent. updated patient' s mother 01/04 pending placement, patient is self funded. still on vent. 01/05 pending placement, patient is tolerating T-piece trial today -off vent. 01/06 patient getting T-piece trial daily, need placement. Patient is unfunded 01/08: Pt opened for 24 hours and tolerating T-piece with 8 L O2. Patient is unfunded and unable to find a placement. Family is refusing to accept the patient at home with home hospice. 01/09: daytime T-piece trials as tolerated and continue to rest on AC for now. pending placement 01/10; tracheostomy on T-piece DNR, for placement 01/11; tracheostomy on T-piece, critically ill poor prognosis. DC planning History Interval history: Patient seen and examined at the bedside Patient's chart reviewed Vital signs noted Hospitalist Physical - Constitutional Vitals: Temp Pulse Resp BP Pulse Ox 98.9 F 108 H 24 133/85 100 01/11/20 08:00 01/11/20 09:00 01/11/20 09:00 01/11/20 09:00 01/11/20 09:00 General appearance: Present: no acute distress, cachectic, disheveled, other (Tracheostomy on T-piece) - EENT Eyes: Present: PERRL, EOM intact ENT: other (Tracheostomy) - Neck Neck: Present: supple, normal ROM - Respiratory Respiratory: bilateral: diminished, rhonchi, negative: rales, wheezing - Cardiovascular Rhythm: regular Heart Sounds: Present: S1 & S2 - Extremities Extremities: no ischemia, No edema - Abdominal General gastrointestinal: soft, non-tender, non-distended, normal bowel sounds - Integumentary Integumentary: Present: clear, warm - Psychiatric Psychiatric: other (Alert and awake) - Neurologic Neurologic: moves all extremities Results - Labs CBC & Chem 7: 01/11/20 07:00 01/11/20 07:00 Labs: Laboratory Last Values WBC 11.8 K/mm3 (4.5-11.0) H 01/11/20 07:00 RBC 3.40 M/mm3 (3.65-5.03) L 01/11/20 07:00 Hgb 9.4 gm/dl (10.1-14.3) L 01/11/20 07:00 Hct 29.3 % (30.3-42.9) L 01/11/20 07:00 MCV 86 fl (79-97) 01/11/20 07:00 MCH 28 pg (28-32) 01/11/20 07:00 MCHC 32 % (30-34) 01/11/20 07:00 RDW 18.1 % (13.2-15.2) H 01/11/20 07:00 Plt Count 549 K/mm3 (140-440) H 01/11/20 07:00 Lymph % (Auto) 14.8 % (13.4-35.0) 01/11/20 07:00 [place] % (Auto) 9.1 % (0.0-7.3) H 01/11/20 07:00 Eos % (Auto) 2.1 % (0.0-4.3) 01/11/20 07:00 Baso % (Auto) 0.7 % (0.0-1.8) 01/11/20 07:00 Lymph # 1.8 K/mm3 (1.2-5.4) 01/11/20 07:00 [place] # 1.1 K/mm3 (0.0-0.8) H 01/11/20 07:00 Eos # 0.2 K/mm3 (0.0-0.4) 01/11/20 07:00 Baso # 0.1 K/mm3 (0.0-0.1) 01/11/20 07:00 Add Manual Diff Complete 12/25/19 03:47 Total Counted 200 12/25/19 03:47 Seg Neutrophils % 73.3 % (40.0-70.0) H 01/11/20 07:00 Seg Neuts % (Manual) 97.5 % (40.0-70.0) H 12/25/19 03:47 Band Neutrophils % 0 % 12/25/19 03:47 Lymphocytes % (Manual) 1.0 % (13.4-35.0) L 12/25/19 03:47 Reactive Lymphs % (Man) 0 % 12/25/19 03:47 Monocytes % (Manual) 1.5 % (0.0-7.3) 12/25/19 03:47 Eosinophils % (Manual) 0 % (0.0-4.3) 12/25/19 03:47 Basophils % (Manual) 0 % (0.0-1.8) 12/25/19 03:47 Metamyelocytes % 0 % 12/25/19 03:47 Myelocytes % 0 % 12/25/19 03:47 Promyelocytes % 0 % 12/25/19 03:47 Blast Cells % 0 % 12/25/19 03:47 Nucleated RBC % Not Reportable 12/25/19 03:47 Seg Neutrophils # 8.7 K/mm3 (1.8-7.7) H 01/11/20 07:00 Seg Neutrophils # Man 35.3 K/mm3 (1.8-7.7) H 12/25/19 03:47 Band Neutrophils # 0.0 K/mm3 12/25/19 03:47 Lymphocytes # (Manual) 0.4 K/mm3 (1.2-5.4) L 12/25/19 03:47 Abs React Lymphs (Man) 0.0 K/mm3 12/25/19 03:47 Monocytes # (Manual) 0.5 K/mm3 (0.0-0.8) 12/25/19 03:47 Eosinophils # (Manual) 0.0 K/mm3 (0.0-0.4) 12/25/19 03:47 Basophils # (Manual) 0.0 K/mm3 (0.0-0.1) 12/25/19 03:47 Metamyelocytes # 0.0 K/mm3 12/25/19 03:47 Myelocytes # 0.0 K/mm3 12/25/19 03:47 Promyelocytes # 0.0 K/mm3 12/25/19 03:47 Blast Cells # 0.0 K/mm3 12/25/19 03:47 Pathologist Review 12/13/19 07:48 WBC Morphology Not Reportable 12/25/19 03:47 Hypersegmented Neuts Not Reportable 12/25/19 03:47 Hyposegmented Neuts Not Reportable 12/25/19 03:47 Hypogranular Neuts Not Reportable 12/25/19 03:47 Smudge Cells Not Reportable 12/25/19 03:47 Toxic Granulation Not Reportable 12/25/19 03:47 Toxic Vacuolation Not Reportable 12/25/19 03:47 Dohle Bodies Not Reportable 12/25/19 03:47 Pelger-Huet Anomaly Not Reportable 12/25/19 03:47 Dominique Rods Not Reportable 12/25/19 03:47 Platelet Estimate Consistent w auto 12/25/19 03:47 Clumped Platelets Not Reportable 12/25/19 03:47 Plt Clumps, EDTA Not Reportable 12/25/19 03:47 Large Platelets Not Reportable 12/25/19 03:47 Giant Platelets Not Reportable 12/25/19 03:47 Platelet Satelliting Not Reportable 12/25/19 03:47 Plt Morphology Comment Not Reportable 12/25/19 03:47 RBC Morphology Not Reportable 12/25/19 03:47 Dimorphic RBCs Not Reportable 12/25/19 03:47 Polychromasia Not Reportable 12/25/19 03:47 Hypochromasia Not Reportable 12/25/19 03:47 Poikilocytosis Not Reportable 12/25/19 03:47 Anisocytosis 1+ 12/25/19 03:47 Microcytosis Not Reportable 12/25/19 03:47 Macrocytosis Not Reportable 12/25/19 03:47 Spherocytes Not Reportable 12/25/19 03:47 Pappenheimer Bodies Not Reportable 12/25/19 03:47 Sickle Cells Not Reportable 12/25/19 03:47 Target Cells Not Reportable 12/25/19 03:47 Tear Drop Cells Not Reportable 12/25/19 03:47 Ovalocytes Not Reportable 12/25/19 03:47 Helmet Cells Not Reportable 12/25/19 03:47 Frias-Sulphur Bodies Not Reportable 12/25/19 03:47 [place] Rings Not Reportable 12/25/19 03:47 [place] Cells Not Reportable 12/25/19 03:47 Bite Cells Not Reportable 12/25/19 03:47 Crenated Cell Not Reportable 12/25/19 03:47 Elliptocytes Not Reportable 12/25/19 03:47 Acanthocytes (Spur) Not Reportable 12/25/19 03:47 Rouleaux Not Reportable 12/25/19 03:47 Hemoglobin C Crystals Not Reportable 12/25/19 03:47 Schistocytes Not Reportable 12/25/19 03:47 Malaria parasites Not Reportable 12/25/19 03:47 Gregg Bodies Not Reportable 12/25/19 03:47 Hem Pathologist Commnt No 12/25/19 03:47 PT 17.0 Sec. (12.2-14.9) H 11/23/19 03:47 INR 1.36 (0.87-1.13) H 11/23/19 03:47 APTT 128.2 Sec. (24.2-36.6) H* 11/23/19 03:47 Heparin Anti-Xa Level 0.31 U.I./ml (0.3-0.7) 11/23/19 09:03 ABG pH 7.429 pH Units (7.350-7.450) 01/09/20 08:51 ABG pCO2 39.1 mm Hg 01/09/20 08:51 ABG pO2 94.3 mm Hg (80.0-90.0) H 01/09/20 08:51 ABG HCO3 25.3 mmol/L (20.0-26.0) 01/09/20 08:51 ABG O2 Saturation 97.4 % (95.0-99.0) 01/09/20 08:51 ABG O2 Content 12.9 (0.0-44) 01/09/20 08:51 ABG Base Excess 1.0 mmol/L (-2.0-3.0) 01/09/20 08:51 ABG Hemoglobin 9.5 gm/dl (12.0-16.0) L 01/09/20 08:51 ABG Carboxyhemoglobin 1.3 % (0.0-5.0) 01/09/20 08:51 ABG Methemoglobin 0.4 % (0.0-1.5) 01/09/20 08:51 Oxyhemoglobin 95.7 % (95.0-99.0) 01/09/20 08:51 FiO2 35 % 01/09/20 08:51 Sodium 134 mmol/L (137-145) L 01/11/20 07:00 Potassium 4.1 mmol/L (3.6-5.0) 01/11/20 07:00 Chloride 97.7 mmol/L (98-107) L 01/11/20 07:00 Carbon Dioxide 21 mmol/L (22-30) L 01/11/20 07:00 Anion Gap 19 mmol/L 01/11/20 07:00 BUN 38 mg/dL (7-17) H 01/11/20 07:00 Creatinine 0.5 mg/dL (0.7-1.2) L 01/11/20 07:00 Estimated GFR > 60 ml/min 01/11/20 07:00 BUN/Creatinine Ratio 76 % 01/11/20 07:00 Glucose 168 mg/dL (65-100) H 01/11/20 07:00 POC Glucose 151 (70-105) H 01/11/20 06:05 Lactic Acid 1.80 mmol/L (0.7-2.0) 11/25/19 05:05 Calcium 10.5 mg/dL (8.4-10.2) H 01/11/20 07:00 Ionized Calcium 4.5 mg/dL (4.8-5.6) L 11/23/19 06:32 Phosphorus 4.20 mg/dL (2.5-4.5) D 11/28/19 08:59 Magnesium 2.30 mg/dL (1.7-2.3) 11/29/19 13:41 Total Bilirubin 0.40 mg/dL (0.1-1.2) 12/13/19 07:48 AST 27 units/L (5-40) 12/13/19 07:48 ALT 26 units/L (7-56) 12/13/19 07:48 Alkaline Phosphatase 316 units/L (35-129) H 12/13/19 07:48 Ammonia 42.0 umol/L (25-60) 11/29/19 13:41 Total Creatine Kinase 139 units/L (30-135) H 11/22/19 23:27 CK-MB (CK-2) 8.3 ng/mL (0.0-4.0) H 11/22/19 23:27 CK-MB (CK-2) Rel Index 5.9 (0-4) H 11/22/19 23:27 Troponin T < 0.010 ng/mL (0.00-0.029) 11/22/19 23:27 Total Protein 6.8 g/dL (6.3-8.2) 12/13/19 07:48 Albumin 2.4 g/dL (3.9-5) L 12/13/19 07:48 Albumin/Globulin Ratio 0.5 % 12/13/19 07:48 Lipase 18 units/L (13-60) 11/23/19 00:34 Procalcitonin 1.09 ng/mL (<0.15) 11/23/19 04:53 Urine Color Yellow (Yellow) 12/16/19 Unknown Urine Turbidity Slightly-cloudy (Clear) 12/16/19 Unknown Urine pH 5.0 (5.0-7.0) 12/16/19 Unknown Ur Specific [place] 1.018 (1.003-1.030) 12/16/19 Unknown Urine Protein 30 mg/dl mg/dL (Negative) 12/16/19 Unknown Urine Glucose (UA) Neg mg/dL (Negative) 12/16/19 Unknown Urine Ketones Neg mg/dL (Negative) 12/16/19 Unknown Urine Blood Sm (Negative) 12/16/19 Unknown Urine Nitrite Neg (Negative) 12/16/19 Unknown Urine Bilirubin Neg (Negative) 12/16/19 Unknown Urine Urobilinogen < 2.0 mg/dL (<2.0) 12/16/19 Unknown Ur Leukocyte Esterase Neg (Negative) 12/16/19 Unknown Urine WBC (Auto) 6.0 /HPF (0.0-6.0) 12/16/19 Unknown Urine RBC (Auto) 9.0 /HPF (0.0-6.0) 12/16/19 Unknown U Epithel Cells (Auto) < 1.0 /HPF (0-13.0) 12/16/19 Unknown Urine Bacteria (Auto) 2+ /HPF (Negative) 11/22/19 23:17 Hyaline Casts 3 /LPF 12/16/19 Unknown Granular Casts 3 /LPF 12/16/19 Unknown Urine Mucus Few /HPF 12/16/19 Unknown Vancomycin Trough 33.8 ug/mL (5.0-20.0) H 12/21/19 08:56 Random Vancomycin 16.2 ug/mL (0-40.0) 12/24/19 04:31 Salicylates < 0.3 mg/dL (2.8-20.0) L 11/22/19 23:27 Urine Opiates Screen Presumptive negative 11/22/19 23:17 Urine Methadone Screen Presumptive negative 11/22/19 23:17 Acetaminophen < 5.0 ug/mL (10.0-30.0) L 11/22/19 23:27 Ur Barbiturates Screen Presumptive negative 11/22/19 23:17 Ur Phencyclidine Scrn Presumptive negative 11/22/19 23:17 Ur Amphetamines Screen Presumptive negative 11/22/19 23:17 U Benzodiazepines Scrn Presumptive negative 11/22/19 23:17 Urine Cocaine Screen Presumptive negative 11/22/19 23:17 U Marijuana (THC) Screen Presumptive negative 11/22/19 23:17 Drugs of Abuse Note Disclamer 11/22/19 23:17 Plasma/Serum Alcohol 0.08 % (0-0.07) H 11/22/19 23:27 Hepatitis A IgM Ab Non-reactive (NonReactive) 11/23/19 01:19 Hep Bs Antigen Non-reactive (Negative) 11/23/19 01:19 Hep B Core IgM Ab Non-reactive (NonReactive) 11/23/19 01:19 Hepatitis C Antibody Non-reactive (NonReactive) 11/23/19 01:19 Blood Type O POSITIVE 12/21/19 14:54 Antibody Screen Negative 12/21/19 14:54 Crossmatch See Detail 12/21/19 14:54 - Diagnostic Impressions Diagnostic Impressions: Echocardiogram 11/23/19 03:58 Transthoracic Echocardiogram Indication: Cardiac arrest BP: 131/89 HR: 115 Conclusions *The study quality is technically difficult. *Global left ventricular wall motion and contractility are within normal limits. *The estimated ejection fraction is 55-60%. *Abnormal left ventricular diastolic filling is observed, consistent with impaired relaxation. *There is no pericardial effusion. Findings Procedure Info: The study quality is technically difficult. The study was technically limited due to the patient's inability to lay in the left lateral decubitus position. Left Ventricle: The left ventricular chamber size is normal. There is no left ventricular hypertrophy. Global left ventricular wall motion and contractility are within normal limits. Global left ventricular systolic function is normal. The estimated ejection fraction is 55-60%. Abnormal left ventricular diastolic filling is observed, consistent with impaired relaxation. Left Atrium: The left atrial chamber size is normal. Aortic Valve: The aortic valve leaflets are mildly thickened. Mitral Valve: The mitral valve leaflets are mildly thickened. There is no evidence of mitral regurgitation. Tricuspid Valve: The tricuspid valve leaflets are normal. There is trace tricuspid regurgitation. The right ventricular systolic pressure is calculated at 33 mmHg. Pulmonic Valve: The pulmonic valve appears normal. Pericardium: The pericardium appears normal. There is no pericardial effusion. Aorta: The aorta appears normal. Venous: The inferior vena cava appears normal in size. Measurements Chambers 2D Name Value Normal Range IVSd (2D) 0.94 cm (0.6 - 1.1) LVPWd (2D) 0.81 cm (0.6 - 1.1) LVIDd (2D) 3.6 cm (3.7 - 5.6) LVIDs (2D) 2.27 cm (2 - 3.8) LV FS (2D) 36.93 % - EF Teichholz (2D) 67.76 % - Ao root diameter (2D) 3.03 cm (2 - 3.7) Volumes/Mass Name Value Normal Range LA ESV SP 4CH (A/L) 16.89 ml - LA ESV SP 4CH (MOD) 15.52 ml - Diastolic/Systolic Function Name Value Normal Range MV E-wave Vmax 0.55 m/sec - MV deceleration time 200.89 msec - MV A-wave Vmax 0.68 m/sec - MV E:A ratio 0.82 ratio - Aortic Valve Name Value Normal Range AV Vmax 1.1 m/sec - AV VTI 15.9 cm - AV peak gradient 4.86 mmHg - AV mean gradient 2.59 mmHg - LVOT diameter 2 cm - LVOT Vmax 1.03 m/sec - LVOT VTI 15.87 cm - LVOT peak gradient 4.24 mmHg - LVOT mean gradient 2.41 mmHg - SV LVOT 49.77 ml - JOSÉ MIGUEL (continuity Vmax) 2.93 cm2 - JOSÉ MIGUEL (continuity VTI) 3.13 cm2 - Tricuspid Valve Name Value Normal Range TR Vmax 2.74 m/sec - TR peak gradient 303 mmHg - RAP 3 mmHg - RVSP 33 mmHg - IVC diameter 1.77 cm (1.2 - 2.3) Pulmonic Valve/Qp:Qs Name Value Normal Range PV Vmax 0.77 m/sec - PV peak gradient 2.4 mmHg - PV acceleration time 114.18 msec - Echocardiogram Limited Views 12/17/19 14:53 Transthoracic Echocardiogram Indication: R/O Vegetations BP: 144/83 HR: 133 Conclusions *Global left ventricular systolic function is mildly decreased. *The estimated ejection fraction is 45-50%. *A trivial pericardial effusion is visualized. Findings Left Ventricle: The left ventricular chamber size is normal. Global left ventricular systolic function is mildly decreased. The estimated ejection fraction is 45-50%. Left Atrium: The left atrial chamber size is normal. Right Ventricle: The right ventricular cavity size is normal. Right Atrium: The right atrial cavity size is normal. Aortic Valve: The aortic valve is not well visualized. There is no evidence of aortic regurgitation. Mitral Valve: The mitral valve leaflets are mildly thickened. There is trace of mitral regurgitation. Tricuspid Valve: The tricuspid valve leaflets are mildly thickened. There is trace tricuspid regurgitation. The right ventricular systolic pressure is calculated at 29 mmHg. Pulmonic Valve: The pulmonic valve is not well visualized. There is no evidence of pulmonic regurgitation. Pericardium: A trivial pericardial effusion is visualized. Aorta: There is no dilatation of the ascending aorta. There is no dilatation of the aortic root. Venous: The inferior vena cava appears normal in size. There is a greater than 50% respiratory change in the inferior vena cava dimension. Measurements Chambers 2D Name Value Normal Range IVSd (2D) 0.83 cm (0.6 - 1.1) LVPWd (2D) 0.98 cm (0.6 - 1.1) LVIDd (2D) 3.71 cm (3.7 - 5.6) LVIDs (2D) 2.93 cm (2 - 3.8) LV FS (2D) 21.12 % - EF Teichholz (2D) 43.71 % - Ao root diameter (2D) 3.02 cm (2 - 3.7) Volumes/Mass Name Value Normal Range LA ESV SP 4CH (A/L) 36.8 ml - LA ESV SP 2CH (A/L) 45.89 ml - LA ESV BP (A/L) 42.35 ml - LA ESV BP (A/L) index 26.63 ml/m2 - LA ESV SP 4CH (MOD) 34.42 ml - LA ESV SP 2CH (MOD) 44.21 ml - LA ESV BP (MOD) 39.82 ml - LA ESV BP (MOD) index 25.05 ml/m2 - Aortic Valve Name Value Normal Range LVOT diameter 1.63 cm - Tricuspid Valve Name Value Normal Range TR Vmax 2.56 m/sec - TR peak gradient 26 mmHg - RAP 3 mmHg - RVSP 29 mmHg - IVC diameter 1.83 cm (1.2 - 2.3) [place]/IV: Voiding Method Incontinent IV Catheter Type [Forearm] Peripheral IV IV Catheter Type [Left Forearm Peripheral IV ] IV Catheter Type [Right Peripheral IV Antecubital] IV Catheter Type [Right Hand] INT / Saline Lock IV Catheter Type [Right Wrist] Peripheral IV IV Catheter Type [Left Wrist] Peripheral IV IV Catheter Type [Left Peripheral IV Antecubital] IV Catheter Type [Right INT / Saline Lock Forearm] IV Catheter Type [Left Hand] Peripheral IV Active Medications - Current Medications Current Medications: Generic Name Dose Route Start Last Admin Trade Name Freq PRN Reason Stop Dose Admin Acetaminophen 650 mg 12/06/19 10:25 01/09/20 22:17 Tylenol FEEDTUBE 650 mg Q6H PRN Administration TEMP >/=100.3 Lipase/Protease/Amylase 1 each 11/23/19 11:[address] 10,500 Unit FEEDTUBE PRN PRN Use w/ sod bicarb for FT Fentanyl 50 mcg 12/05/19 02:10 12/12/19 20:04 Sublimaze IV 50 mcg Q10MIN PRN Administration ANALGESIA Glycopyrrolate 2 mg 12/31/19 20:00 01/10/20 21:07 Robinul PO 2 mg TID LUCHO Administration Hydralazine HCl 10 mg 11/24/19 00:45 12/18/19 13:25 Apresoline IV 10 mg Q6H PRN Administration SBP > 160 Hydroxyzine Pamoate 25 mg 12/06/19 10:00 01/10/20 23:30 Vistaril PO 25 mg BID LUCHO Administration Lansoprazole 30 mg 11/27/19 10:00 01/10/20 09:15 Prevacid Solutab FEEDTUBE 30 mg QDAY LUCHO Administration Levetiracetam 500 mg 11/29/19 10:00 01/10/20 23:29 Keppra PO 500 mg BID LUCHO Administration Mirtazapine 30 mg 12/06/19 10:00 01/10/20 09:17 Remeron PO 30 mg DAILY LUCHO Administration Morphine Sulfate 2 mg 12/12/19 18:40 12/24/19 23:04 Morphine IV 2 mg Q4H PRN Administration Pain, Moderate (4-6) Ondansetron HCl 4 mg 12/10/19 07:53 01/06/20 10:53 Zofran IV 4 mg Q4H PRN Administration Nausea And Vomiting Quetiapine Fumarate 100 mg 01/09/20 21:41 01/10/20 23:30 Seroquel FEEDTUBE 100 mg QHS LUCHO Administration Senna/Docusate Sodium 2 tab 12/24/19 07:00 Senokot S PO BID PRN CONSTIPATION Sertraline HCl 25 mg 01/01/20 10:00 01/10/20 09:15 Zoloft PO 25 mg QDAY LUCHO Administration Simple Syrup 15 ml 11/23/19 11:50 Simple Syrup FEEDTUBE PRN PRN Hypoglycemia BG<70 Simple Syrup 30 ml 11/23/19 11:50 Simple Syrup FEEDTUBE PRN PRN Hypoglycemia Sodium Bicarbonate 325 mg 11/23/19 11:50 Sodium Bicarbonate FEEDTUBE PRN PRN For Clogged Feeding Tube Tamsulosin HCl 0.4 mg 12/14/19 13:00 01/10/20 09:15 Flomax PO 0.4 mg QDAY LUCHO Administration Nutrition/Malnutrition Assess - Dietary Evaluation Nutrition/Malnutrition Findings: Nutrition Notes Start: 11/23/19 11:29 Freq: Status: Active Protocol: Document 01/07/20 13:12 LM (Rec: 01/07/20 13:17 LM [email or web address]) Nutrition Notes Initial or Follow up Reassessment Current Diagnosis Hypertension Other Pertinent Diagnosis Cardaic arrest, ETOH dependence, UTI Current Diet Vital AF 1.2 at 50 ml/hr Labs/Tests Na 136 Pertinent Medications Reviewed Height 5 ft 6 in Weight 52.9 kg [place] Body Weight (kg) 59.09 BMI 18.8 Weight change and time frame wt change noted Subjective/Other Information TF running at 50ml/hr and tolerating. Percent of energy/protein needs met: 100%/100% Burn Absent Trauma Absent GI Symptoms None Current % PO Negligible Minimum of two criteria No Fluid Accumulation Mild (non-severe) #1 Nutrition Diagnosis Inadequate oral intake Diagnosis Progress(for reassessment Continues documentation) Is patient on ventilator? Yes Is Patient Ambulatory and/or Out of Bed No REE-([facility]-confined to bed) 9961.870 Calculation Used for Recommendations [facility] Additional Notes Protein: 66-110g (1.2-2g/kg) Fluid: 1 ml/kcal Nutrition Intervention Change Diet Order: Continue TF Nutrition Support: Vital AF 1.2 at 50 ml/hr Flush 50 ml q6h for hyponatremia Flush 80ml q4h once resolved Kcal 1,440 Protein (gm) 90 Fluid (mL) 973 Goal #1 TF tolerance Goal #2 Meet at least 80% of energy and protein needs via TF Anticipated Discharge Needs: unable to determine at this time Follow-Up By: 01/11/20 Additional Comments F/U for TF tolerance, Na, wt
[2020-01-11] MEDS: hydrOXYzine PAMOATE 25 MG CAP PO SCH ×2 (10:30→21:44)
[2020-01-11] MEDS: LANSOPRAZOLE 30 MG SOLUTAB FEEDTUBE SCH (10:30)
[2020-01-11] MEDS: MIRTAZAPINE 30 MG TAB PO SCH (10:30)
[2020-01-11] MEDS: TAMSULOSIN 0.4 MG CAP PO SCH (10:30)
[2020-01-11] MEDS: levETIRAcetam 500 MG/5 ML ORAL LIQD PO SCH ×2 (10:30→21:44)
[2020-01-11] MEDS: SERTRALINE 50 MG TAB PO SCH (10:30)
--- NOTE | 2020-01-11 13:52 | Progress Note ---
Assessment and Plan Acute cardiopulmonary arrest with ROSC Acute hypoxemic respiratory failure on MVS Acute metabolic-toxic encephalopathy Metabolic acidosis/alcoholic acidosis/Lactic acidosis Ischemic hepatitis Leucocytosis with lactic acidosis Tobacco use disorder ALcohol use Disorder Hypokalemia High grade fevers - downsize trach soon - continue RTC T-piece trials as tolerated - no new issues; continue care as below otherwise - repeat CXR prn at this point - Continue to wean supplemental oxygen for target O2 sat's > 90% - continue bronchodilators with routine trach care and pulmonary hygiene per RT - Slow Seroquel taper - consider Provigil - s/p Antibiotics per ID recommendations - continue Reglan for G.I. motility - Continue VTE and Stress ulcer prophylaxis - Continue enteric nutritional support - Monitor glycemic control, with target blood glucose 140-180 mg/dL while critically ill (Avoid hypoglycemia) - ABG and CXR prn - Continue to avoid nephrotoxins, adjust all medications fro GFR and CrCL - Continue to avoid benzodiazepines , as much as possible, to reduce the possibility of delirium - Continue prn analgesia per CPOT score - Continue to maintain of sleep-wake cycle, avoid delirium - PT/OT/ROM exercises- awaiting PT/OT evaluation - Continue mobility protocol and skin assessment per protocol for pressure ulcer prevention - Continue to monitor for clinical seizures - Continue Nicotine withdrawal precautions, alcohol withdrawal precautions - continue other care per attending / other consultants ..... re-evaluate in am & prn CONDITION: FAIR PROGNOSIS: IMPROVED CODE STATUS: FULL CODE Subjective Date of service: 01/11/20 Principal diagnosis: Ac cardiopulmonary arrest; Ac hypoxemic resp failure; Acute encephalopathy Interval history: Patient is seen today for: Acute cardiopulmonary arrest with ROSC; Acute hypoxemic respiratory failure; Acute metabolic-toxic encephalopathy; Ischemic hepatitis; Leucocytosis with lactic acidosis; Tobacco use disorder; Alcohol use Disorder; Hypokalemia; High grade fevers Seen and examined at bedside; 24hour events reviewed; nursing and respiratory care staff consulted; no adverse overnight events reported to me; resting peacefully in bed; doing much better; remains on T-piece; no emesis or overt aspiration Objective Vital Signs - 12hr 01/11/20 01/11/20 01/11/20 02:00 03:00 04:00 Temperature 98 F Pulse Rate 119 H 119 H 112 H Pulse Rate [ 105 H From Monitor] Respiratory 29 H 27 H 26 H Rate Blood Pressure 127/82 130/83 134/86 O2 Sat by Pulse 100 100 100 Oximetry O2 Sat by Pulse Oximetry [ Assessment] 01/11/20 01/11/20 01/11/20 05:00 06:00 07:00 Temperature Pulse Rate 104 H 106 H 113 H Pulse Rate [ From Monitor] Respiratory 25 H 14 25 H Rate Blood Pressure 138/88 135/88 141/89 O2 Sat by Pulse 100 100 100 Oximetry O2 Sat by Pulse Oximetry [ Assessment] 01/11/20 01/11/20 01/11/20 08:00 09:00 09:51 Temperature 98.9 F Pulse Rate 108 H 117 H Pulse Rate [ 108 H From Monitor] Respiratory 30 H 24 Rate Blood Pressure 135/93 133/85 O2 Sat by Pulse 100 100 96 Oximetry O2 Sat by Pulse 96 Oximetry [ Assessment] 01/11/20 01/11/20 01/11/20 10:00 11:00 12:00 Temperature 98.8 F Pulse Rate 118 H 112 H 115 H Pulse Rate [ 115 H From Monitor] Respiratory 22 17 29 H Rate Blood Pressure 122/81 130/89 151/104 O2 Sat by Pulse 97 99 100 Oximetry O2 Sat by Pulse Oximetry [ Assessment] Constitutional: no acute distress, other (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, with midline tracheostomy and mild dys-synchrony) Eyes: non-icteric ENT: oropharynx moist, other (s/p trach) Neck: supple, no lymphadenopathy, no JVD Effort: mildly labored Ascultation: Bilateral: diminished breath sounds, rhonchi Percussion: Bilateral: not dull Cardiovascular: regular rate and rhythm (tachycardia), other (S1,S2) Gastrointestinal: normoactive bowel sounds, soft, non-tender, non-distended Integumentary: normal Extremities: no cyanosis, no edema, pulses normal, no ischemia or petechiae Neurologic: other (awake; folowing simple commands) Psychiatric: other (Psychiatric: Unable to assess re: AMS) CBC and BMP: 01/11/20 07:00 01/11/20 07:00 ABG, PT/INR, D-dimer: ABG ABG pH 7.429 pH Units (7.350-7.450) 01/09/20 08:51 ABG pCO2 39.1 mm Hg 01/09/20 08:51 ABG pO2 94.3 mm Hg (80.0-90.0) H 01/09/20 08:51 ABG O2 Saturation 97.4 % (95.0-99.0) 01/09/20 08:51 PT/INR, D-dimer PT 17.0 Sec. (12.2-14.9) H 11/23/19 03:47 INR 1.36 (0.87-1.13) H 11/23/19 03:47 Abnormal lab findings: Abnormal Labs 11/22/19 11/22/19 11/22/19 23:17 23:18 23:27 WBC 21.2 H RBC 3.59 L Hgb 9.8 L Hct MCH 27 L RDW 18.6 H Plt Count 454 H Lymph % (Auto) [place] % (Auto) [place] # Baso # Seg Neutrophils % Seg Neuts % (Manual) 86.0 H Lymphocytes % (Manual) 9.0 L Monocytes % (Manual) Seg Neutrophils # Seg Neutrophils # Man 18.2 H Lymphocytes # (Manual) Monocytes # (Manual) 1.1 H Eosinophils # (Manual) Basophils # (Manual) PT INR APTT ABG pH ABG pO2 ABG HCO3 ABG O2 Saturation ABG Base Excess ABG Hemoglobin Oxyhemoglobin Sodium Potassium Chloride Carbon Dioxide BUN Creatinine Glucose POC Glucose 53 L Lactic Acid Calcium Ionized Calcium Phosphorus Magnesium Total Bilirubin AST ALT Alkaline Phosphatase Ammonia Total Creatine Kinase CK-MB (CK-2) CK-MB (CK-2) Rel Index Total Protein Albumin Urine WBC (Auto) 40.0 H Vancomycin Trough Salicylates Acetaminophen Plasma/Serum Alcohol Crossmatch 11/22/19 11/22/19 11/22/19 23:27 23:27 23:27 WBC RBC Hgb Hct MCH RDW Plt Count Lymph % (Auto) [place] % (Auto) [place] # Baso # Seg Neutrophils % Seg Neuts % (Manual) Lymphocytes % (Manual) Monocytes % (Manual) Seg Neutrophils # Seg Neutrophils # Man Lymphocytes # (Manual) Monocytes # (Manual) Eosinophils # (Manual) Basophils # (Manual) PT INR APTT ABG pH ABG pO2 ABG HCO3 ABG O2 Saturation ABG Base Excess ABG Hemoglobin Oxyhemoglobin Sodium Potassium 2.4 L* Chloride 85.1 L Carbon Dioxide 19 L BUN Creatinine 0.5 L Glucose 261 H POC Glucose Lactic Acid Calcium Ionized Calcium Phosphorus Magnesium Total Bilirubin AST 609 H ALT 152 H Alkaline Phosphatase 160 H Ammonia 117.0 H Total Creatine Kinase 139 H CK-MB (CK-2) 8.3 H CK-MB (CK-2) Rel Index 5.9 H Total Protein Albumin 3.6 L Urine WBC (Auto) Vancomycin Trough Salicylates < 0.3 L Acetaminophen Plasma/Serum Alcohol Crossmatch 11/22/19 11/22/19 11/23/19 23:27 23:27 01:10 WBC RBC Hgb Hct MCH RDW Plt Count Lymph % (Auto) [place] % (Auto) [place] # Baso # Seg Neutrophils % Seg Neuts % (Manual) Lymphocytes % (Manual) Monocytes % (Manual) Seg Neutrophils # Seg Neutrophils # Man Lymphocytes # (Manual) Monocytes # (Manual) Eosinophils # (Manual) Basophils # (Manual) PT INR APTT ABG pH 7.273 L ABG pO2 209.7 H ABG HCO3 ABG O2 Saturation 99.2 H ABG Base Excess -3.9 L ABG Hemoglobin 10.6 L Oxyhemoglobin 93.9 L Sodium Potassium Chloride Carbon Dioxide BUN Creatinine Glucose POC Glucose Lactic Acid Calcium Ionized Calcium Phosphorus Magnesium Total Bilirubin AST ALT Alkaline Phosphatase Ammonia Total Creatine Kinase CK-MB (CK-2) CK-MB (CK-2) Rel Index Total Protein Albumin Urine WBC (Auto) Vancomycin Trough Salicylates Acetaminophen < 5.0 L Plasma/Serum Alcohol 0.08 H Crossmatch 11/23/19 11/23/19 11/23/19 01:19 01:19 03:47 WBC RBC Hgb Hct MCH RDW Plt Count Lymph % (Auto) [place] % (Auto) [place] # Baso # Seg Neutrophils % Seg Neuts % (Manual) Lymphocytes % (Manual) Monocytes % (Manual) Seg Neutrophils # Seg Neutrophils # Man Lymphocytes # (Manual) Monocytes # (Manual) Eosinophils # (Manual) Basophils # (Manual) PT 16.3 H INR 1.29 H APTT ABG pH ABG pO2 ABG HCO3 ABG O2 Saturation ABG Base Excess ABG Hemoglobin Oxyhemoglobin Sodium Potassium Chloride Carbon Dioxide BUN Creatinine Glucose POC Glucose Lactic Acid 2.10 H* 5.00 H* Calcium Ionized Calcium Phosphorus Magnesium Total Bilirubin AST ALT Alkaline Phosphatase Ammonia Total Creatine Kinase CK-MB (CK-2) CK-MB (CK-2) Rel Index Total Protein Albumin Urine WBC (Auto) Vancomycin Trough Salicylates Acetaminophen Plasma/Serum Alcohol Crossmatch 11/23/19 11/23/19 11/23/19 03:47 03:47 04:53 WBC RBC Hgb 9.4 L Hct MCH RDW Plt Count Lymph % (Auto) [place] % (Auto) [place] # Baso # Seg Neutrophils % Seg Neuts % (Manual) Lymphocytes % (Manual) Monocytes % (Manual) Seg Neutrophils # Seg Neutrophils # Man Lymphocytes # (Manual) Monocytes # (Manual) Eosinophils # (Manual) Basophils # (Manual) PT 17.0 H INR 1.36 H APTT 128.2 H* ABG pH ABG pO2 ABG HCO3 ABG O2 Saturation ABG Base Excess ABG Hemoglobin Oxyhemoglobin Sodium Potassium Chloride Carbon Dioxide 18 L BUN Creatinine 0.5 L Glucose 105 H POC Glucose Lactic Acid Calcium 8.3 L Ionized Calcium Phosphorus 2.40 L Magnesium Total Bilirubin 1.30 H AST 761 H ALT 158 H Alkaline Phosphatase 143 H Ammonia Total Creatine Kinase CK-MB (CK-2) CK-MB (CK-2) Rel Index Total Protein Albumin 2.8 L Urine WBC (Auto) Vancomycin Trough Salicylates Acetaminophen Plasma/Serum Alcohol Crossmatch 11/23/19 11/23/19 11/23/19 05:12 06:32 06:32 WBC 16.8 H RBC 3.31 L Hgb 8.9 L Hct 28.7 L MCH 27 L RDW 18.6 H Plt Count Lymph % (Auto) [place] % (Auto) [place] # Baso # Seg Neutrophils % Seg Neuts % (Manual) 94.0 H Lymphocytes % (Manual) 1.0 L Monocytes % (Manual) Seg Neutrophils # Seg Neutrophils # Man 15.8 H Lymphocytes # (Manual) 0.2 L Monocytes # (Manual) Eosinophils # (Manual) Basophils # (Manual) PT INR APTT ABG pH ABG pO2 ABG HCO3 ABG O2 Saturation ABG Base Excess -3.2 L ABG Hemoglobin 9.0 L Oxyhemoglobin 93.6 L Sodium Potassium Chloride Carbon Dioxide BUN Creatinine Glucose POC Glucose Lactic Acid Calcium Ionized Calcium 4.5 L Phosphorus Magnesium Total Bilirubin AST ALT Alkaline Phosphatase Ammonia Total Creatine Kinase CK-MB (CK-2) CK-MB (CK-2) Rel Index Total Protein Albumin Urine WBC (Auto) Vancomycin Trough Salicylates Acetaminophen Plasma/Serum Alcohol Crossmatch 11/23/19 11/24/19 11/24/19 06:32 04:35 04:35 WBC RBC Hgb Hct MCH RDW Plt Count Lymph % (Auto) [place] % (Auto) [place] # Baso # Seg Neutrophils % Seg Neuts % (Manual) Lymphocytes % (Manual) Monocytes % (Manual) Seg Neutrophils # Seg Neutrophils # Man Lymphocytes # (Manual) Monocytes # (Manual) Eosinophils # (Manual) Basophils # (Manual) PT INR APTT ABG pH ABG pO2 ABG HCO3 ABG O2 Saturation ABG Base Excess ABG Hemoglobin Oxyhemoglobin Sodium Potassium Chloride Carbon Dioxide BUN Creatinine Glucose POC Glucose Lactic Acid 3.30 H* Calcium Ionized Calcium Phosphorus Magnesium 1.40 L Total Bilirubin AST ALT Alkaline Phosphatase Ammonia 98.0 H Total Creatine Kinase CK-MB (CK-2) CK-MB (CK-2) Rel Index Total Protein Albumin Urine WBC (Auto) Vancomycin Trough Salicylates Acetaminophen Plasma/Serum Alcohol Crossmatch 11/24/19 11/25/19 11/25/19 05:22 04:34 05:05 WBC 17.3 H RBC 2.88 L Hgb 7.8 L Hct 24.6 L MCH 27 L RDW 18.5 H Plt Count Lymph % (Auto) 7.7 L [place] % (Auto) 9.7 H [place] # 1.7 H Baso # Seg Neutrophils % 82.2 H Seg Neuts % (Manual) Lymphocytes % (Manual) Monocytes % (Manual) Seg Neutrophils # 14.2 H Seg Neutrophils # Man Lymphocytes # (Manual) Monocytes # (Manual) Eosinophils # (Manual) Basophils # (Manual) PT INR APTT ABG pH 7.475 H ABG pO2 ABG HCO3 29.4 H 32.3 H ABG O2 Saturation ABG Base Excess 5.4 H 6.9 H ABG Hemoglobin 9.0 L 10.6 L Oxyhemoglobin 94.3 L Sodium Potassium Chloride Carbon Dioxide BUN Creatinine Glucose POC Glucose Lactic Acid Calcium Ionized Calcium Phosphorus Magnesium Total Bilirubin AST ALT Alkaline Phosphatase Ammonia Total Creatine Kinase CK-MB (CK-2) CK-MB (CK-2) Rel Index Total Protein Albumin Urine WBC (Auto) Vancomycin Trough Salicylates Acetaminophen Plasma/Serum Alcohol Crossmatch 11/25/19 11/25/19 11/26/19 05:05 22:46 03:31 WBC RBC Hgb Hct MCH RDW Plt Count Lymph % (Auto) [place] % (Auto) [place] # Baso # Seg Neutrophils % Seg Neuts % (Manual) Lymphocytes % (Manual) Monocytes % (Manual) Seg Neutrophils # Seg Neutrophils # Man Lymphocytes # (Manual) Monocytes # (Manual) Eosinophils # (Manual) Basophils # (Manual) PT INR APTT ABG pH 7.459 H ABG pO2 ABG HCO3 34.2 H ABG O2 Saturation ABG Base Excess 9.4 H ABG Hemoglobin 7.6 L Oxyhemoglobin 94.8 L Sodium 152 H D 147 H Potassium 2.3 L* D 2.8 L* D Chloride 107.8 H Carbon Dioxide 31 H D 33 H BUN Creatinine 0.6 L 0.6 L Glucose 148 H 177 H POC Glucose Lactic Acid Calcium Ionized Calcium Phosphorus Magnesium Total Bilirubin AST 105 H ALT 71 H Alkaline Phosphatase 155 H Ammonia Total Creatine Kinase CK-MB (CK-2) CK-MB (CK-2) Rel Index Total Protein 5.2 L D Albumin 2.9 L Urine WBC (Auto) Vancomycin Trough Salicylates Acetaminophen Plasma/Serum Alcohol Crossmatch 11/26/19 11/26/19 11/27/19 08:24 08:24 04:20 WBC 12.0 H RBC 3.00 L Hgb 8.0 L 9.3 L Hct 25.9 L 29.7 L MCH 27 L RDW 18.5 H Plt Count Lymph % (Auto) [place] % (Auto) [place] # Baso # Seg Neutrophils % Seg Neuts % (Manual) 89.0 H Lymphocytes % (Manual) 4.0 L Monocytes % (Manual) Seg Neutrophils # Seg Neutrophils # Man 10.7 H Lymphocytes # (Manual) 0.5 L Monocytes # (Manual) Eosinophils # (Manual) Basophils # (Manual) PT INR APTT ABG pH ABG pO2 ABG HCO3 ABG O2 Saturation ABG Base Excess ABG Hemoglobin Oxyhemoglobin Sodium 146 H Potassium 3.4 L D Chloride Carbon Dioxide BUN Creatinine 0.5 L Glucose 165 H POC Glucose Lactic Acid Calcium Ionized Calcium Phosphorus Magnesium Total Bilirubin AST 57 H ALT Alkaline Phosphatase 166 H Ammonia Total Creatine Kinase CK-MB (CK-2) CK-MB (CK-2) Rel Index Total Protein Albumin 2.9 L Urine WBC (Auto) Vancomycin Trough Salicylates Acetaminophen Plasma/Serum Alcohol Crossmatch 11/27/19 11/27/19 11/27/19 04:28 04:28 04:42 WBC RBC Hgb Hct MCH RDW Plt Count Lymph % (Auto) [place] % (Auto) [place] # Baso # Seg Neutrophils % Seg Neuts % (Manual) Lymphocytes % (Manual) Monocytes % (Manual) Seg Neutrophils # Seg Neutrophils # Man Lymphocytes # (Manual) Monocytes # (Manual) Eosinophils # (Manual) Basophils # (Manual) PT INR APTT ABG pH 7.470 H ABG pO2 74.0 L ABG HCO3 33.8 H ABG O2 Saturation ABG Base Excess 9.1 H ABG Hemoglobin 8.7 L Oxyhemoglobin 94.7 L Sodium 146 H Potassium 2.9 L* Chloride Carbon Dioxide BUN 25 H Creatinine Glucose 213 H POC Glucose Lactic Acid Calcium Ionized Calcium Phosphorus 1.00 L Magnesium Total Bilirubin AST ALT Alkaline Phosphatase Ammonia Total Creatine Kinase CK-MB (CK-2) CK-MB (CK-2) Rel Index Total Protein Albumin Urine WBC (Auto) Vancomycin Trough Salicylates Acetaminophen Plasma/Serum Alcohol Crossmatch 11/27/19 11/27/19 11/27/19 05:37 12:20 15:46 WBC RBC Hgb Hct MCH RDW Plt Count Lymph % (Auto) [place] % (Auto) [place] # Baso # Seg Neutrophils % Seg Neuts % (Manual) Lymphocytes % (Manual) Monocytes % (Manual) Seg Neutrophils # Seg Neutrophils # Man Lymphocytes # (Manual) Monocytes # (Manual) Eosinophils # (Manual) Basophils # (Manual) PT INR APTT ABG pH ABG pO2 ABG HCO3 ABG O2 Saturation ABG Base Excess ABG Hemoglobin Oxyhemoglobin Sodium 146 H Potassium 3.5 L D Chloride Carbon Dioxide BUN 24 H Creatinine 0.6 L Glucose 187 H POC Glucose 117 H 220 H Lactic Acid Calcium Ionized Calcium Phosphorus Magnesium Total Bilirubin AST ALT Alkaline Phosphatase Ammonia Total Creatine Kinase CK-MB (CK-2) CK-MB (CK-2) Rel Index Total Protein Albumin Urine WBC (Auto) Vancomycin Trough Salicylates Acetaminophen Plasma/Serum Alcohol Crossmatch 11/27/19 11/28/19 11/28/19 17:28 05:00 05:02 WBC RBC Hgb Hct MCH RDW Plt Count Lymph % (Auto) [place] % (Auto) [place] # Baso # Seg Neutrophils % Seg Neuts % (Manual) Lymphocytes % (Manual) Monocytes % (Manual) Seg Neutrophils # Seg Neutrophils # Man Lymphocytes # (Manual) Monocytes # (Manual) Eosinophils # (Manual) Basophils # (Manual) PT INR APTT ABG pH ABG pO2 72.4 L ABG HCO3 33.6 H ABG O2 Saturation 94.1 L ABG Base Excess 7.3 H ABG Hemoglobin Oxyhemoglobin 91.8 L Sodium 146 H Potassium 3.3 L Chloride Carbon Dioxide BUN 25 H Creatinine 0.6 L Glucose 176 H POC Glucose 198 H Lactic Acid Calcium Ionized Calcium Phosphorus Magnesium Total Bilirubin AST ALT Alkaline Phosphatase Ammonia Total Creatine Kinase CK-MB (CK-2) CK-MB (CK-2) Rel Index Total Protein Albumin Urine WBC (Auto) Vancomycin Trough Salicylates Acetaminophen Plasma/Serum Alcohol Crossmatch 11/28/19 11/28/19 11/29/19 05:02 18:55 10:43 WBC 15.2 H 19.0 H RBC 3.06 L 3.01 L Hgb 8.3 L 8.3 L Hct 27.0 L 26.4 L MCH 27 L RDW 19.0 H 19.7 H Plt Count 479 H 611 H Lymph % (Auto) [place] % (Auto) [place] # Baso # Seg Neutrophils % Seg Neuts % (Manual) 92.0 H Lymphocytes % (Manual) 2.0 L Monocytes % (Manual) Seg Neutrophils # Seg Neutrophils # Man 14.0 H Lymphocytes # (Manual) 0.3 L Monocytes # (Manual) Eosinophils # (Manual) Basophils # (Manual) PT INR APTT ABG pH ABG pO2 ABG HCO3 ABG O2 Saturation ABG Base Excess ABG Hemoglobin Oxyhemoglobin Sodium Potassium Chloride Carbon Dioxide BUN Creatinine Glucose POC Glucose 138 H Lactic Acid Calcium Ionized Calcium Phosphorus Magnesium Total Bilirubin AST ALT Alkaline Phosphatase Ammonia Total Creatine Kinase CK-MB (CK-2) CK-MB (CK-2) Rel Index Total Protein Albumin Urine WBC (Auto) Vancomycin Trough Salicylates Acetaminophen Plasma/Serum Alcohol Crossmatch 11/29/19 11/29/19 11/29/19 10:43 12:27 19:25 WBC RBC Hgb Hct MCH RDW Plt Count Lymph % (Auto) [place] % (Auto) [place] # Baso # Seg Neutrophils % Seg Neuts % (Manual) Lymphocytes % (Manual) Monocytes % (Manual) Seg Neutrophils # Seg Neutrophils # Man Lymphocytes # (Manual) Monocytes # (Manual) Eosinophils # (Manual) Basophils # (Manual) PT INR APTT ABG pH ABG pO2 ABG HCO3 ABG O2 Saturation ABG Base Excess ABG Hemoglobin Oxyhemoglobin Sodium Potassium 2.8 L* Chloride Carbon Dioxide BUN 20 H Creatinine 0.5 L Glucose 121 H POC Glucose 128 H 120 H Lactic Acid Calcium Ionized Calcium Phosphorus Magnesium Total Bilirubin AST ALT Alkaline Phosphatase Ammonia Total Creatine Kinase CK-MB (CK-2) CK-MB (CK-2) Rel Index Total Protein Albumin Urine WBC (Auto) Vancomycin Trough Salicylates Acetaminophen Plasma/Serum Alcohol Crossmatch 11/29/19 11/30/19 11/30/19 23:46 04:10 05:02 WBC RBC Hgb Hct MCH RDW Plt Count Lymph % (Auto) [place] % (Auto) [place] # Baso # Seg Neutrophils % Seg Neuts % (Manual) Lymphocytes % (Manual) Monocytes % (Manual) Seg Neutrophils # Seg Neutrophils # Man Lymphocytes # (Manual) Monocytes # (Manual) Eosinophils # (Manual) Basophils # (Manual) PT INR APTT ABG pH ABG pO2 76.3 L ABG HCO3 32.5 H ABG O2 Saturation ABG Base Excess 6.9 H ABG Hemoglobin 8.0 L Oxyhemoglobin 92.6 L Sodium Potassium Chloride Carbon Dioxide BUN Creatinine Glucose POC Glucose 116 H 128 H Lactic Acid Calcium Ionized Calcium Phosphorus Magnesium Total Bilirubin AST ALT Alkaline Phosphatase Ammonia Total Creatine Kinase CK-MB (CK-2) CK-MB (CK-2) Rel Index Total Protein Albumin Urine WBC (Auto) Vancomycin Trough Salicylates Acetaminophen Plasma/Serum Alcohol Crossmatch 11/30/19 11/30/19 11/30/19 05:25 05:25 12:59 WBC 18.4 H RBC 3.10 L Hgb 8.5 L Hct 27.5 L MCH 27 L RDW 20.9 H Plt Count 691 H Lymph % (Auto) 7.1 L [place] % (Auto) 7.7 H [place] # 1.4 H Baso # Seg Neutrophils % 83.4 H Seg Neuts % (Manual) Lymphocytes % (Manual) Monocytes % (Manual) Seg Neutrophils # 15.4 H Seg Neutrophils # Man Lymphocytes # (Manual) Monocytes # (Manual) Eosinophils # (Manual) Basophils # (Manual) PT INR APTT ABG pH ABG pO2 ABG HCO3 ABG O2 Saturation ABG Base Excess ABG Hemoglobin Oxyhemoglobin Sodium 146 H Potassium Chloride 107.2 H Carbon Dioxide BUN Creatinine 0.5 L Glucose 132 H POC Glucose 124 H Lactic Acid Calcium Ionized Calcium Phosphorus Magnesium Total Bilirubin AST 246 H ALT 274 H Alkaline Phosphatase 203 H Ammonia Total Creatine Kinase CK-MB (CK-2) CK-MB (CK-2) Rel Index Total Protein 5.4 L Albumin 2.9 L Urine WBC (Auto) Vancomycin Trough Salicylates Acetaminophen Plasma/Serum Alcohol Crossmatch 11/30/19 12/01/19 12/01/19 17:53 00:05 05:10 WBC RBC Hgb Hct MCH RDW Plt Count Lymph % (Auto) [place] % (Auto) [place] # Baso # Seg Neutrophils % Seg Neuts % (Manual) Lymphocytes % (Manual) Monocytes % (Manual) Seg Neutrophils # Seg Neutrophils # Man Lymphocytes # (Manual) Monocytes # (Manual) Eosinophils # (Manual) Basophils # (Manual) PT INR APTT ABG pH ABG pO2 ABG HCO3 ABG O2 Saturation ABG Base Excess ABG Hemoglobin Oxyhemoglobin Sodium Potassium Chloride Carbon Dioxide BUN Creatinine Glucose POC Glucose 113 H 143 H 145 H Lactic Acid Calcium Ionized Calcium Phosphorus Magnesium Total Bilirubin AST ALT Alkaline Phosphatase Ammonia Total Creatine Kinase CK-MB (CK-2) CK-MB (CK-2) Rel Index Total Protein Albumin Urine WBC (Auto) Vancomycin Trough Salicylates Acetaminophen Plasma/Serum Alcohol Crossmatch 12/01/19 12/01/19 12/01/19 05:33 08:23 08:23 WBC 22.7 H RBC 2.88 L Hgb 7.9 L Hct 25.2 L MCH 27 L RDW 21.0 H Plt Count 732 H Lymph % (Auto) [place] % (Auto) [place] # Baso # Seg Neutrophils % Seg Neuts % (Manual) 91.0 H Lymphocytes % (Manual) 3.0 L Monocytes % (Manual) Seg Neutrophils # Seg Neutrophils # Man 20.7 H Lymphocytes # (Manual) 0.7 L Monocytes # (Manual) 1.1 H Eosinophils # (Manual) Basophils # (Manual) PT INR APTT ABG pH ABG pO2 68.6 L ABG HCO3 34.1 H ABG O2 Saturation ABG Base Excess 9.0 H ABG Hemoglobin 6.5 L Oxyhemoglobin 94.7 L Sodium Potassium Chloride Carbon Dioxide BUN Creatinine 0.5 L Glucose 125 H POC Glucose Lactic Acid Calcium Ionized Calcium Phosphorus Magnesium Total Bilirubin AST ALT Alkaline Phosphatase Ammonia Total Creatine Kinase CK-MB (CK-2) CK-MB (CK-2) Rel Index Total Protein Albumin Urine WBC (Auto) Vancomycin Trough Salicylates Acetaminophen Plasma/Serum Alcohol Crossmatch 12/01/19 12/01/19 12/01/19 13:21 17:54 20:59 WBC RBC Hgb Hct MCH RDW Plt Count Lymph % (Auto) [place] % (Auto) [place] # Baso # Seg Neutrophils % Seg Neuts % (Manual) Lymphocytes % (Manual) Monocytes % (Manual) Seg Neutrophils # Seg Neutrophils # Man Lymphocytes # (Manual) Monocytes # (Manual) Eosinophils # (Manual) Basophils # (Manual) PT INR APTT ABG pH ABG pO2 78.3 L ABG HCO3 33.8 H ABG O2 Saturation 94.9 L ABG Base Excess 7.9 H ABG Hemoglobin 11.5 L Oxyhemoglobin 92.3 L Sodium Potassium Chloride Carbon Dioxide BUN Creatinine Glucose POC Glucose 111 H 115 H Lactic Acid Calcium Ionized Calcium Phosphorus Magnesium Total Bilirubin AST ALT Alkaline Phosphatase Ammonia Total Creatine Kinase CK-MB (CK-2) CK-MB (CK-2) Rel Index Total Protein Albumin Urine WBC (Auto) Vancomycin Trough Salicylates Acetaminophen Plasma/Serum Alcohol Crossmatch 12/02/19 12/03/19 12/04/19 12:55 20:00 04:26 WBC 15.2 H RBC 2.69 L Hgb 7.4 L Hct 23.6 L MCH 27 L RDW 19.9 H Plt Count 838 H Lymph % (Auto) [place] % (Auto) [place] # Baso # Seg Neutrophils % Seg Neuts % (Manual) Lymphocytes % (Manual) Monocytes % (Manual) Seg Neutrophils # Seg Neutrophils # Man Lymphocytes # (Manual) Monocytes # (Manual) Eosinophils # (Manual) Basophils # (Manual) PT INR APTT ABG pH ABG pO2 68.3 L ABG HCO3 33.5 H ABG O2 Saturation 93.5 L ABG Base Excess 8.4 H ABG Hemoglobin 7.3 L Oxyhemoglobin 90.9 L Sodium Potassium Chloride Carbon Dioxide BUN Creatinine Glucose POC Glucose 107 H Lactic Acid Calcium Ionized Calcium Phosphorus Magnesium Total Bilirubin AST ALT Alkaline Phosphatase Ammonia Total Creatine Kinase CK-MB (CK-2) CK-MB (CK-2) Rel Index Total Protein Albumin Urine WBC (Auto) Vancomycin Trough Salicylates Acetaminophen Plasma/Serum Alcohol Crossmatch 12/04/19 12/04/19 12/04/19 04:26 07:45 12:02 WBC 15.9 H RBC 2.88 L Hgb 7.9 L Hct 25.1 L MCH RDW 20.4 H Plt Count 839 H Lymph % (Auto) 11.3 L [place] % (Auto) 15.2 H [place] # 2.4 H Baso # Seg Neutrophils % 72.4 H Seg Neuts % (Manual) Lymphocytes % (Manual) Monocytes % (Manual) Seg Neutrophils # 11.5 H Seg Neutrophils # Man Lymphocytes # (Manual) Monocytes # (Manual) Eosinophils # (Manual) Basophils # (Manual) PT INR APTT ABG pH ABG pO2 ABG HCO3 ABG O2 Saturation ABG Base Excess ABG Hemoglobin Oxyhemoglobin Sodium Potassium Chloride 96.5 L Carbon Dioxide BUN 21 H Creatinine 0.6 L Glucose 107 H POC Glucose 138 H Lactic Acid Calcium Ionized Calcium Phosphorus Magnesium Total Bilirubin AST ALT Alkaline Phosphatase Ammonia Total Creatine Kinase CK-MB (CK-2) CK-MB (CK-2) Rel Index Total Protein Albumin Urine WBC (Auto) Vancomycin Trough Salicylates Acetaminophen Plasma/Serum Alcohol Crossmatch 12/04/19 12/05/19 12/05/19 18:16 11:55 18:36 WBC RBC Hgb Hct MCH RDW Plt Count Lymph % (Auto) [place] % (Auto) [place] # Baso # Seg Neutrophils % Seg Neuts % (Manual) Lymphocytes % (Manual) Monocytes % (Manual) Seg Neutrophils # Seg Neutrophils # Man Lymphocytes # (Manual) Monocytes # (Manual) Eosinophils # (Manual) Basophils # (Manual) PT INR APTT ABG pH ABG pO2 ABG HCO3 ABG O2 Saturation ABG Base Excess ABG Hemoglobin Oxyhemoglobin Sodium Potassium Chloride Carbon Dioxide BUN Creatinine Glucose POC Glucose 135 H 125 H 135 H Lactic Acid Calcium Ionized Calcium Phosphorus Magnesium Total Bilirubin AST ALT Alkaline Phosphatase Ammonia Total Creatine Kinase CK-MB (CK-2) CK-MB (CK-2) Rel Index Total Protein Albumin Urine WBC (Auto) Vancomycin Trough Salicylates Acetaminophen Plasma/Serum Alcohol Crossmatch 12/05/19 12/06/19 12/06/19 23:30 04:14 05:43 WBC RBC Hgb Hct MCH RDW Plt Count Lymph % (Auto) [place] % (Auto) [place] # Baso # Seg Neutrophils % Seg Neuts % (Manual) Lymphocytes % (Manual) Monocytes % (Manual) Seg Neutrophils # Seg Neutrophils # Man Lymphocytes # (Manual) Monocytes # (Manual) Eosinophils # (Manual) Basophils # (Manual) PT INR APTT ABG pH ABG pO2 ABG HCO3 ABG O2 Saturation ABG Base Excess ABG Hemoglobin Oxyhemoglobin Sodium Potassium 5.6 H Chloride 95.0 L Carbon Dioxide BUN 48 H Creatinine 1.3 H D Glucose POC Glucose 126 H 121 H Lactic Acid Calcium Ionized Calcium Phosphorus Magnesium Total Bilirubin AST 89 H ALT 98 H Alkaline Phosphatase 476 H Ammonia Total Creatine Kinase CK-MB (CK-2) CK-MB (CK-2) Rel Index Total Protein Albumin 2.8 L Urine WBC (Auto) Vancomycin Trough Salicylates Acetaminophen Plasma/Serum Alcohol Crossmatch 12/06/19 12/06/19 12/07/19 10:39 14:34 00:19 WBC 17.3 H RBC 2.60 L Hgb 7.1 L Hct 22.7 L MCH 27 L RDW 20.1 H Plt Count 832 H Lymph % (Auto) [place] % (Auto) [place] # Baso # Seg Neutrophils % Seg Neuts % (Manual) Lymphocytes % (Manual) Monocytes % (Manual) Seg Neutrophils # Seg Neutrophils # Man Lymphocytes # (Manual) Monocytes # (Manual) Eosinophils # (Manual) Basophils # (Manual) PT INR APTT ABG pH ABG pO2 ABG HCO3 ABG O2 Saturation ABG Base Excess ABG Hemoglobin Oxyhemoglobin Sodium Potassium Chloride Carbon Dioxide BUN Creatinine Glucose POC Glucose 128 H 136 H Lactic Acid Calcium Ionized Calcium Phosphorus Magnesium Total Bilirubin AST ALT Alkaline Phosphatase Ammonia Total Creatine Kinase CK-MB (CK-2) CK-MB (CK-2) Rel Index Total Protein Albumin Urine WBC (Auto) Vancomycin Trough Salicylates Acetaminophen Plasma/Serum Alcohol Crossmatch 12/07/19 12/07/19 12/07/19 03:44 03:44 05:53 WBC 16.2 H RBC 2.56 L Hgb 7.1 L Hct 22.3 L MCH RDW 19.4 H Plt Count 782 H Lymph % (Auto) [place] % (Auto) [place] # Baso # Seg Neutrophils % Seg Neuts % (Manual) Lymphocytes % (Manual) Monocytes % (Manual) Seg Neutrophils # Seg Neutrophils # Man Lymphocytes # (Manual) Monocytes # (Manual) Eosinophils # (Manual) Basophils # (Manual) PT INR APTT ABG pH ABG pO2 ABG HCO3 ABG O2 Saturation ABG Base Excess ABG Hemoglobin Oxyhemoglobin Sodium Potassium Chloride 95.6 L Carbon Dioxide BUN 56 H Creatinine 1.4 H Glucose 120 H POC Glucose 128 H Lactic Acid Calcium 10.3 H Ionized Calcium Phosphorus Magnesium Total Bilirubin AST ALT Alkaline Phosphatase Ammonia Total Creatine Kinase CK-MB (CK-2) CK-MB (CK-2) Rel Index Total Protein Albumin Urine WBC (Auto) Vancomycin Trough Salicylates Acetaminophen Plasma/Serum Alcohol Crossmatch 12/07/19 12/07/19 12/08/19 12:54 23:47 00:20 WBC RBC Hgb Hct MCH RDW Plt Count Lymph % (Auto) [place] % (Auto) [place] # Baso # Seg Neutrophils % Seg Neuts % (Manual) Lymphocytes % (Manual) Monocytes % (Manual) Seg Neutrophils # Seg Neutrophils # Man Lymphocytes # (Manual) Monocytes # (Manual) Eosinophils # (Manual) Basophils # (Manual) PT INR APTT ABG pH ABG pO2 ABG HCO3 ABG O2 Saturation ABG Base Excess ABG Hemoglobin Oxyhemoglobin Sodium Potassium Chloride Carbon Dioxide BUN Creatinine Glucose POC Glucose 128 H 130 H 124 H Lactic Acid Calcium Ionized Calcium Phosphorus Magnesium Total Bilirubin AST ALT Alkaline Phosphatase Ammonia Total Creatine Kinase CK-MB (CK-2) CK-MB (CK-2) Rel Index Total Protein Albumin Urine WBC (Auto) Vancomycin Trough Salicylates Acetaminophen Plasma/Serum Alcohol Crossmatch 12/08/19 12/08/19 12/08/19 06:38 12:04 18:26 WBC RBC Hgb Hct MCH RDW Plt Count Lymph % (Auto) [place] % (Auto) [place] # Baso # Seg Neutrophils % Seg Neuts % (Manual) Lymphocytes % (Manual) Monocytes % (Manual) Seg Neutrophils # Seg Neutrophils # Man Lymphocytes # (Manual) Monocytes # (Manual) Eosinophils # (Manual) Basophils # (Manual) PT INR APTT ABG pH ABG pO2 ABG HCO3 ABG O2 Saturation ABG Base Excess ABG Hemoglobin Oxyhemoglobin Sodium Potassium Chloride Carbon Dioxide BUN Creatinine Glucose POC Glucose 137 H 129 H 150 H Lactic Acid Calcium Ionized Calcium Phosphorus Magnesium Total Bilirubin AST ALT Alkaline Phosphatase Ammonia Total Creatine Kinase CK-MB (CK-2) CK-MB (CK-2) Rel Index Total Protein Albumin Urine WBC (Auto) Vancomycin Trough Salicylates Acetaminophen Plasma/Serum Alcohol Crossmatch 12/09/19 12/09/19 12/09/19 00:56 05:34 06:13 WBC RBC Hgb Hct MCH RDW Plt Count Lymph % (Auto) [place] % (Auto) [place] # Baso # Seg Neutrophils % Seg Neuts % (Manual) Lymphocytes % (Manual) Monocytes % (Manual) Seg Neutrophils # Seg Neutrophils # Man Lymphocytes # (Manual) Monocytes # (Manual) Eosinophils # (Manual) Basophils # (Manual) PT INR APTT ABG pH ABG pO2 ABG HCO3 ABG O2 Saturation ABG Base Excess ABG Hemoglobin Oxyhemoglobin Sodium 146 H Potassium Chloride Carbon Dioxide BUN 66 H Creatinine 1.9 H Glucose 116 H POC Glucose 130 H 130 H Lactic Acid Calcium Ionized Calcium Phosphorus Magnesium Total Bilirubin AST ALT Alkaline Phosphatase Ammonia Total Creatine Kinase CK-MB (CK-2) CK-MB (CK-2) Rel Index Total Protein Albumin Urine WBC (Auto) Vancomycin Trough Salicylates Acetaminophen Plasma/Serum Alcohol Crossmatch 12/09/19 12/09/19 12/10/19 11:52 17:50 00:14 WBC RBC Hgb Hct MCH RDW Plt Count Lymph % (Auto) [place] % (Auto) [place] # Baso # Seg Neutrophils % Seg Neuts % (Manual) Lymphocytes % (Manual) Monocytes % (Manual) Seg Neutrophils # Seg Neutrophils # Man Lymphocytes # (Manual) Monocytes # (Manual) Eosinophils # (Manual) Basophils # (Manual) PT INR APTT ABG pH ABG pO2 ABG HCO3 ABG O2 Saturation ABG Base Excess ABG Hemoglobin Oxyhemoglobin Sodium Potassium Chloride Carbon Dioxide BUN Creatinine Glucose POC Glucose 135 H 120 H 116 H Lactic Acid Calcium Ionized Calcium Phosphorus Magnesium Total Bilirubin AST ALT Alkaline Phosphatase Ammonia Total Creatine Kinase CK-MB (CK-2) CK-MB (CK-2) Rel Index Total Protein Albumin Urine WBC (Auto) Vancomycin Trough Salicylates Acetaminophen Plasma/Serum Alcohol Crossmatch 12/10/19 12/10/19 12/10/19 05:38 11:38 17:34 WBC RBC Hgb Hct MCH RDW Plt Count Lymph % (Auto) [place] % (Auto) [place] # Baso # Seg Neutrophils % Seg Neuts % (Manual) Lymphocytes % (Manual) Monocytes % (Manual) Seg Neutrophils # Seg Neutrophils # Man Lymphocytes # (Manual) Monocytes # (Manual) Eosinophils # (Manual) Basophils # (Manual) PT INR APTT ABG pH ABG pO2 ABG HCO3 ABG O2 Saturation ABG Base Excess ABG Hemoglobin Oxyhemoglobin Sodium Potassium Chloride Carbon Dioxide BUN Creatinine Glucose POC Glucose 115 H 112 H 130 H Lactic Acid Calcium Ionized Calcium Phosphorus Magnesium Total Bilirubin AST ALT Alkaline Phosphatase Ammonia Total Creatine Kinase CK-MB (CK-2) CK-MB (CK-2) Rel Index Total Protein Albumin Urine WBC (Auto) Vancomycin Trough Salicylates Acetaminophen Plasma/Serum Alcohol Crossmatch 12/11/19 12/11/19 12/11/19 00:20 05:31 12:22 WBC RBC Hgb Hct MCH RDW Plt Count Lymph % (Auto) [place] % (Auto) [place] # Baso # Seg Neutrophils % Seg Neuts % (Manual) Lymphocytes % (Manual) Monocytes % (Manual) Seg Neutrophils # Seg Neutrophils # Man Lymphocytes # (Manual) Monocytes # (Manual) Eosinophils # (Manual) Basophils # (Manual) PT INR APTT ABG pH ABG pO2 ABG HCO3 ABG O2 Saturation ABG Base Excess ABG Hemoglobin Oxyhemoglobin Sodium Potassium Chloride Carbon Dioxide BUN Creatinine Glucose POC Glucose 124 H 132 H 128 H Lactic Acid Calcium Ionized Calcium Phosphorus Magnesium Total Bilirubin AST ALT Alkaline Phosphatase Ammonia Total Creatine Kinase CK-MB (CK-2) CK-MB (CK-2) Rel Index Total Protein Albumin Urine WBC (Auto) Vancomycin Trough Salicylates Acetaminophen Plasma/Serum Alcohol Crossmatch 12/11/19 12/11/19 12/12/19 18:04 23:42 03:51 WBC RBC Hgb Hct MCH RDW Plt Count Lymph % (Auto) [place] % (Auto) [place] # Baso # Seg Neutrophils % Seg Neuts % (Manual) Lymphocytes % (Manual) Monocytes % (Manual) Seg Neutrophils # Seg Neutrophils # Man Lymphocytes # (Manual) Monocytes # (Manual) Eosinophils # (Manual) Basophils # (Manual) PT INR APTT ABG pH ABG pO2 ABG HCO3 ABG O2 Saturation ABG Base Excess ABG Hemoglobin Oxyhemoglobin Sodium 149 H Potassium Chloride Carbon Dioxide 20 L D BUN 77 H Creatinine 2.8 H Glucose POC Glucose 133 H 154 H Lactic Acid Calcium Ionized Calcium Phosphorus Magnesium Total Bilirubin AST ALT Alkaline Phosphatase Ammonia Total Creatine Kinase CK-MB (CK-2) CK-MB (CK-2) Rel Index Total Protein Albumin Urine WBC (Auto) Vancomycin Trough Salicylates Acetaminophen Plasma/Serum Alcohol Crossmatch 12/12/19 12/12/19 12/12/19 05:18 05:26 10:30 WBC 18.0 H RBC 2.51 L Hgb 6.8 L Hct 22.0 L MCH 27 L RDW 19.9 H Plt Count 582 H Lymph % (Auto) [place] % (Auto) [place] # Baso # Seg Neutrophils % Seg Neuts % (Manual) Lymphocytes % (Manual) Monocytes % (Manual) Seg Neutrophils # Seg Neutrophils # Man Lymphocytes # (Manual) Monocytes # (Manual) Eosinophils # (Manual) Basophils # (Manual) PT INR APTT ABG pH ABG pO2 ABG HCO3 ABG O2 Saturation ABG Base Excess ABG Hemoglobin Oxyhemoglobin Sodium Potassium Chloride Carbon Dioxide BUN Creatinine Glucose POC Glucose 135 H Lactic Acid Calcium Ionized Calcium Phosphorus Magnesium Total Bilirubin AST ALT Alkaline Phosphatase Ammonia Total Creatine Kinase CK-MB (CK-2) CK-MB (CK-2) Rel Index Total Protein Albumin Urine WBC (Auto) Vancomycin Trough Salicylates Acetaminophen Plasma/Serum Alcohol Crossmatch See Detail 12/12/19 12/12/19 12/12/19 11:44 18:10 23:21 WBC RBC Hgb Hct MCH RDW Plt Count Lymph % (Auto) [place] % (Auto) [place] # Baso # Seg Neutrophils % Seg Neuts % (Manual) Lymphocytes % (Manual) Monocytes % (Manual) Seg Neutrophils # Seg Neutrophils # Man Lymphocytes # (Manual) Monocytes # (Manual) Eosinophils # (Manual) Basophils # (Manual) PT INR APTT ABG pH ABG pO2 ABG HCO3 ABG O2 Saturation ABG Base Excess ABG Hemoglobin Oxyhemoglobin Sodium Potassium Chloride Carbon Dioxide BUN Creatinine Glucose POC Glucose 108 H 107 H 126 H Lactic Acid Calcium Ionized Calcium Phosphorus Magnesium Total Bilirubin AST ALT Alkaline Phosphatase Ammonia Total Creatine Kinase CK-MB (CK-2) CK-MB (CK-2) Rel Index Total Protein Albumin Urine WBC (Auto) Vancomycin Trough Salicylates Acetaminophen Plasma/Serum Alcohol Crossmatch 12/13/19 12/13/19 12/13/19 05:41 07:48 07:48 WBC 38.3 H RBC 2.37 L Hgb 6.3 L Hct 20.9 L MCH 27 L RDW 20.2 H Plt Count 546 H Lymph % (Auto) [place] % (Auto) [place] # Baso # Seg Neutrophils % Seg Neuts % (Manual) 93.0 H Lymphocytes % (Manual) 1.0 L Monocytes % (Manual) Seg Neutrophils # Seg Neutrophils # Man 35.6 H Lymphocytes # (Manual) 0.4 L Monocytes # (Manual) Eosinophils # (Manual) Basophils # (Manual) 0.4 H PT INR APTT ABG pH ABG pO2 ABG HCO3 ABG O2 Saturation ABG Base Excess ABG Hemoglobin Oxyhemoglobin Sodium 152 H Potassium 3.1 L D Chloride 111.9 H Carbon Dioxide 21 L BUN 53 H Creatinine 1.9 H Glucose 141 H POC Glucose 128 H Lactic Acid Calcium Ionized Calcium Phosphorus Magnesium Total Bilirubin AST ALT Alkaline Phosphatase 316 H Ammonia Total Creatine Kinase CK-MB (CK-2) CK-MB (CK-2) Rel Index Total Protein Albumin 2.4 L Urine WBC (Auto) Vancomycin Trough Salicylates Acetaminophen Plasma/Serum Alcohol Crossmatch 12/13/19 12/13/19 12/14/19 18:17 23:19 05:36 WBC RBC Hgb Hct MCH RDW Plt Count Lymph % (Auto) [place] % (Auto) [place] # Baso # Seg Neutrophils % Seg Neuts % (Manual) Lymphocytes % (Manual) Monocytes % (Manual) Seg Neutrophils # Seg Neutrophils # Man Lymphocytes # (Manual) Monocytes # (Manual) Eosinophils # (Manual) Basophils # (Manual) PT INR APTT ABG pH ABG pO2 ABG HCO3 ABG O2 Saturation ABG Base Excess ABG Hemoglobin Oxyhemoglobin Sodium Potassium Chloride Carbon Dioxide BUN Creatinine Glucose POC Glucose 141 H 158 H 182 H Lactic Acid Calcium Ionized Calcium Phosphorus Magnesium Total Bilirubin AST ALT Alkaline Phosphatase Ammonia Total Creatine Kinase CK-MB (CK-2) CK-MB (CK-2) Rel Index Total Protein Albumin Urine WBC (Auto) Vancomycin Trough Salicylates Acetaminophen Plasma/Serum Alcohol Crossmatch 12/14/19 12/14/19 12/14/19 08:48 08:48 10:31 WBC 33.3 H RBC 2.70 L Hgb 7.9 L 8.0 L Hct 25.3 L 24.0 L MCH RDW 19.2 H Plt Count 476 H Lymph % (Auto) [place] % (Auto) [place] # Baso # Seg Neutrophils % Seg Neuts % (Manual) Lymphocytes % (Manual) Monocytes % (Manual) Seg Neutrophils # Seg Neutrophils # Man Lymphocytes # (Manual) Monocytes # (Manual) Eosinophils # (Manual) Basophils # (Manual) PT INR APTT ABG pH ABG pO2 ABG HCO3 ABG O2 Saturation ABG Base Excess ABG Hemoglobin Oxyhemoglobin Sodium 153 H Potassium 2.5 L* Chloride 114.9 H Carbon Dioxide 20 L BUN 38 H Creatinine 1.4 H Glucose 177 H POC Glucose Lactic Acid Calcium Ionized Calcium Phosphorus Magnesium Total Bilirubin AST ALT Alkaline Phosphatase Ammonia Total Creatine Kinase CK-MB (CK-2) CK-MB (CK-2) Rel Index Total Protein Albumin Urine WBC (Auto) Vancomycin Trough Salicylates Acetaminophen Plasma/Serum Alcohol Crossmatch 12/14/19 12/14/19 12/14/19 12:57 16:15 17:50 WBC RBC Hgb Hct MCH RDW Plt Count Lymph % (Auto) [place] % (Auto) [place] # Baso # Seg Neutrophils % Seg Neuts % (Manual) Lymphocytes % (Manual) Monocytes % (Manual) Seg Neutrophils # Seg Neutrophils # Man Lymphocytes # (Manual) Monocytes # (Manual) Eosinophils # (Manual) Basophils # (Manual) PT INR APTT ABG pH ABG pO2 73.6 L ABG HCO3 ABG O2 Saturation ABG Base Excess ABG Hemoglobin 7.6 L Oxyhemoglobin 94.0 L Sodium Potassium Chloride Carbon Dioxide BUN Creatinine Glucose POC Glucose 174 H 150 H Lactic Acid Calcium Ionized Calcium Phosphorus Magnesium Total Bilirubin AST ALT Alkaline Phosphatase Ammonia Total Creatine Kinase CK-MB (CK-2) CK-MB (CK-2) Rel Index Total Protein Albumin Urine WBC (Auto) Vancomycin Trough Salicylates Acetaminophen Plasma/Serum Alcohol Crossmatch 12/15/19 12/15/19 12/15/19 00:28 05:27 07:23 WBC 30.0 H RBC 3.11 L Hgb 8.6 L Hct 27.7 L MCH RDW 20.0 H Plt Count 473 H Lymph % (Auto) [place] % (Auto) [place] # Baso # Seg Neutrophils % Seg Neuts % (Manual) Lymphocytes % (Manual) Monocytes % (Manual) Seg Neutrophils # Seg Neutrophils # Man Lymphocytes # (Manual) Monocytes # (Manual) Eosinophils # (Manual) Basophils # (Manual) PT INR APTT ABG pH ABG pO2 ABG HCO3 ABG O2 Saturation ABG Base Excess ABG Hemoglobin Oxyhemoglobin Sodium Potassium Chloride Carbon Dioxide BUN Creatinine Glucose POC Glucose 167 H 148 H Lactic Acid Calcium Ionized Calcium Phosphorus Magnesium Total Bilirubin AST ALT Alkaline Phosphatase Ammonia Total Creatine Kinase CK-MB (CK-2) CK-MB (CK-2) Rel Index Total Protein Albumin Urine WBC (Auto) Vancomycin Trough Salicylates Acetaminophen Plasma/Serum Alcohol Crossmatch 12/15/19 12/15/19 12/15/19 07:23 12:21 17:41 WBC RBC Hgb Hct MCH RDW Plt Count Lymph % (Auto) [place] % (Auto) [place] # Baso # Seg Neutrophils % Seg Neuts % (Manual) Lymphocytes % (Manual) Monocytes % (Manual) Seg Neutrophils # Seg Neutrophils # Man Lymphocytes # (Manual) Monocytes # (Manual) Eosinophils # (Manual) Basophils # (Manual) PT INR APTT ABG pH ABG pO2 ABG HCO3 ABG O2 Saturation ABG Base Excess ABG Hemoglobin Oxyhemoglobin Sodium 147 H Potassium 3.5 L D Chloride 111.2 H Carbon Dioxide 19 L BUN 29 H Creatinine Glucose 126 H POC Glucose 154 H 144 H Lactic Acid Calcium Ionized Calcium Phosphorus Magnesium Total Bilirubin AST ALT Alkaline Phosphatase Ammonia Total Creatine Kinase CK-MB (CK-2) CK-MB (CK-2) Rel Index Total Protein Albumin Urine WBC (Auto) Vancomycin Trough Salicylates Acetaminophen Plasma/Serum Alcohol Crossmatch 12/16/19 12/16/19 12/16/19 00:22 05:30 05:44 WBC 30.8 H RBC 2.58 L Hgb 7.1 L Hct 22.7 L MCH RDW 19.6 H Plt Count 451 H Lymph % (Auto) [place] % (Auto) [place] # Baso # Seg Neutrophils % Seg Neuts % (Manual) Lymphocytes % (Manual) Monocytes % (Manual) Seg Neutrophils # Seg Neutrophils # Man Lymphocytes # (Manual) Monocytes # (Manual) Eosinophils # (Manual) Basophils # (Manual) PT INR APTT ABG pH ABG pO2 ABG HCO3 ABG O2 Saturation ABG Base Excess ABG Hemoglobin Oxyhemoglobin Sodium Potassium Chloride Carbon Dioxide BUN Creatinine Glucose POC Glucose 139 H 126 H Lactic Acid Calcium Ionized Calcium Phosphorus Magnesium Total Bilirubin AST ALT Alkaline Phosphatase Ammonia Total Creatine Kinase CK-MB (CK-2) CK-MB (CK-2) Rel Index Total Protein Albumin Urine WBC (Auto) Vancomycin Trough Salicylates Acetaminophen Plasma/Serum Alcohol Crossmatch 12/16/19 12/16/19 12/16/19 05:44 11:48 17:37 WBC RBC Hgb Hct MCH RDW Plt Count Lymph % (Auto) [place] % (Auto) [place] # Baso # Seg Neutrophils % Seg Neuts % (Manual) Lymphocytes % (Manual) Monocytes % (Manual) Seg Neutrophils # Seg Neutrophils # Man Lymphocytes # (Manual) Monocytes # (Manual) Eosinophils # (Manual) Basophils # (Manual) PT INR APTT ABG pH ABG pO2 ABG HCO3 ABG O2 Saturation ABG Base Excess ABG Hemoglobin Oxyhemoglobin Sodium Potassium 3.4 L Chloride 109.2 H Carbon Dioxide 19 L BUN 27 H Creatinine Glucose 124 H POC Glucose 125 H 148 H Lactic Acid Calcium Ionized Calcium Phosphorus Magnesium Total Bilirubin AST ALT Alkaline Phosphatase Ammonia Total Creatine Kinase CK-MB (CK-2) CK-MB (CK-2) Rel Index Total Protein Albumin Urine WBC (Auto) Vancomycin Trough Salicylates Acetaminophen Plasma/Serum Alcohol Crossmatch 12/16/19 12/17/19 12/17/19 23:43 05:28 12:47 WBC RBC Hgb Hct MCH RDW Plt Count Lymph % (Auto) [place] % (Auto) [place] # Baso # Seg Neutrophils % Seg Neuts % (Manual) Lymphocytes % (Manual) Monocytes % (Manual) Seg Neutrophils # Seg Neutrophils # Man Lymphocytes # (Manual) Monocytes # (Manual) Eosinophils # (Manual) Basophils # (Manual) PT INR APTT ABG pH ABG pO2 ABG HCO3 ABG O2 Saturation ABG Base Excess ABG Hemoglobin Oxyhemoglobin Sodium Potassium Chloride Carbon Dioxide BUN Creatinine Glucose POC Glucose 142 H 140 H 125 H Lactic Acid Calcium Ionized Calcium Phosphorus Magnesium Total Bilirubin AST ALT Alkaline Phosphatase Ammonia Total Creatine Kinase CK-MB (CK-2) CK-MB (CK-2) Rel Index Total Protein Albumin Urine WBC (Auto) Vancomycin Trough Salicylates Acetaminophen Plasma/Serum Alcohol Crossmatch 12/17/19 12/17/19 12/17/19 17:05 18:00 Unknown WBC RBC Hgb Hct MCH RDW Plt Count Lymph % (Auto) [place] % (Auto) [place] # Baso # Seg Neutrophils % Seg Neuts % (Manual) Lymphocytes % (Manual) Monocytes % (Manual) Seg Neutrophils # Seg Neutrophils # Man Lymphocytes # (Manual) Monocytes # (Manual) Eosinophils # (Manual) Basophils # (Manual) PT INR APTT ABG pH ABG pO2 68.1 L ABG HCO3 ABG O2 Saturation 93.7 L ABG Base Excess ABG Hemoglobin 5.0 L Oxyhemoglobin 91.7 L Sodium Potassium Chloride Carbon Dioxide BUN Creatinine Glucose POC Glucose 140 H Lactic Acid Calcium Ionized Calcium Phosphorus Magnesium Total Bilirubin AST ALT Alkaline Phosphatase Ammonia Total Creatine Kinase CK-MB (CK-2) CK-MB (CK-2) Rel Index Total Protein Albumin Urine WBC (Auto) Vancomycin Trough Salicylates Acetaminophen Plasma/Serum Alcohol Crossmatch 12/18/19 12/18/19 12/18/19 00:16 04:53 04:53 WBC 28.6 H RBC 2.27 L Hgb 6.3 L Hct 19.5 L* MCH RDW 20.0 H Plt Count 497 H Lymph % (Auto) [place] % (Auto) [place] # Baso # Seg Neutrophils % Seg Neuts % (Manual) Lymphocytes % (Manual) Monocytes % (Manual) Seg Neutrophils # Seg Neutrophils # Man Lymphocytes # (Manual) Monocytes # (Manual) Eosinophils # (Manual) Basophils # (Manual) PT INR APTT ABG pH ABG pO2 ABG HCO3 ABG O2 Saturation ABG Base Excess ABG Hemoglobin Oxyhemoglobin Sodium Potassium Chloride 107.9 H Carbon Dioxide 20 L BUN 27 H Creatinine 0.6 L Glucose 116 H POC Glucose 123 H Lactic Acid Calcium Ionized Calcium Phosphorus Magnesium Total Bilirubin AST ALT Alkaline Phosphatase Ammonia Total Creatine Kinase CK-MB (CK-2) CK-MB (CK-2) Rel Index Total Protein Albumin Urine WBC (Auto) Vancomycin Trough Salicylates Acetaminophen Plasma/Serum Alcohol Crossmatch 12/18/19 12/18/19 12/18/19 06:38 11:22 12:08 WBC RBC Hgb Hct MCH RDW Plt Count Lymph % (Auto) [place] % (Auto) [place] # Baso # Seg Neutrophils % Seg Neuts % (Manual) Lymphocytes % (Manual) Monocytes % (Manual) Seg Neutrophils # Seg Neutrophils # Man Lymphocytes # (Manual) Monocytes # (Manual) Eosinophils # (Manual) Basophils # (Manual) PT INR APTT ABG pH ABG pO2 ABG HCO3 ABG O2 Saturation ABG Base Excess ABG Hemoglobin Oxyhemoglobin Sodium Potassium Chloride Carbon Dioxide BUN Creatinine Glucose POC Glucose 120 H 127 H Lactic Acid Calcium Ionized Calcium Phosphorus Magnesium Total Bilirubin AST ALT Alkaline Phosphatase Ammonia Total Creatine Kinase CK-MB (CK-2) CK-MB (CK-2) Rel Index Total Protein Albumin Urine WBC (Auto) Vancomycin Trough Salicylates Acetaminophen Plasma/Serum Alcohol Crossmatch See Detail 12/18/19 12/18/19 12/18/19 14:05 17:49 23:53 WBC RBC Hgb Hct MCH RDW Plt Count Lymph % (Auto) [place] % (Auto) [place] # Baso # Seg Neutrophils % Seg Neuts % (Manual) Lymphocytes % (Manual) Monocytes % (Manual) Seg Neutrophils # Seg Neutrophils # Man Lymphocytes # (Manual) Monocytes # (Manual) Eosinophils # (Manual) Basophils # (Manual) PT INR APTT ABG pH 7.267 L ABG pO2 69.8 L ABG HCO3 ABG O2 Saturation 88.4 L ABG Base Excess ABG Hemoglobin 7.1 L Oxyhemoglobin 86.4 L Sodium Potassium Chloride Carbon Dioxide BUN Creatinine Glucose POC Glucose 157 H 128 H Lactic Acid Calcium Ionized Calcium Phosphorus Magnesium Total Bilirubin AST ALT Alkaline Phosphatase Ammonia Total Creatine Kinase CK-MB (CK-2) CK-MB (CK-2) Rel Index Total Protein Albumin Urine WBC (Auto) Vancomycin Trough Salicylates Acetaminophen Plasma/Serum Alcohol Crossmatch 12/19/19 12/19/19 12/19/19 03:37 03:37 05:25 WBC 31.3 H RBC 2.60 L Hgb 7.6 L Hct 23.0 L MCH RDW 19.4 H Plt Count 530 H Lymph % (Auto) [place] % (Auto) [place] # Baso # Seg Neutrophils % Seg Neuts % (Manual) Lymphocytes % (Manual) Monocytes % (Manual) Seg Neutrophils # Seg Neutrophils # Man Lymphocytes # (Manual) Monocytes # (Manual) Eosinophils # (Manual) Basophils # (Manual) PT INR APTT ABG pH ABG pO2 ABG HCO3 ABG O2 Saturation ABG Base Excess ABG Hemoglobin Oxyhemoglobin Sodium Potassium Chloride Carbon Dioxide 18 L BUN 36 H Creatinine Glucose 111 H POC Glucose 123 H Lactic Acid Calcium Ionized Calcium Phosphorus Magnesium Total Bilirubin AST ALT Alkaline Phosphatase Ammonia Total Creatine Kinase CK-MB (CK-2) CK-MB (CK-2) Rel Index Total Protein Albumin Urine WBC (Auto) Vancomycin Trough Salicylates Acetaminophen Plasma/Serum Alcohol Crossmatch 12/19/19 12/19/19 12/20/19 12:59 18:33 00:00 WBC RBC Hgb Hct MCH RDW Plt Count Lymph % (Auto) [place] % (Auto) [place] # Baso # Seg Neutrophils % Seg Neuts % (Manual) Lymphocytes % (Manual) Monocytes % (Manual) Seg Neutrophils # Seg Neutrophils # Man Lymphocytes # (Manual) Monocytes # (Manual) Eosinophils # (Manual) Basophils # (Manual) PT INR APTT ABG pH ABG pO2 ABG HCO3 ABG O2 Saturation ABG Base Excess ABG Hemoglobin Oxyhemoglobin Sodium Potassium Chloride Carbon Dioxide BUN Creatinine Glucose POC Glucose 130 H 118 H 135 H Lactic Acid Calcium Ionized Calcium Phosphorus Magnesium Total Bilirubin AST ALT Alkaline Phosphatase Ammonia Total Creatine Kinase CK-MB (CK-2) CK-MB (CK-2) Rel Index Total Protein Albumin Urine WBC (Auto) Vancomycin Trough Salicylates Acetaminophen Plasma/Serum Alcohol Crossmatch 12/20/19 12/20/19 12/20/19 05:46 12:31 18:07 WBC RBC Hgb Hct MCH RDW Plt Count Lymph % (Auto) [place] % (Auto) [place] # Baso # Seg Neutrophils % Seg Neuts % (Manual) Lymphocytes % (Manual) Monocytes % (Manual) Seg Neutrophils # Seg Neutrophils # Man Lymphocytes # (Manual) Monocytes # (Manual) Eosinophils # (Manual) Basophils # (Manual) PT INR APTT ABG pH ABG pO2 ABG HCO3 ABG O2 Saturation ABG Base Excess ABG Hemoglobin Oxyhemoglobin Sodium Potassium Chloride Carbon Dioxide BUN Creatinine Glucose POC Glucose 131 H 128 H 134 H Lactic Acid Calcium Ionized Calcium Phosphorus Magnesium Total Bilirubin AST ALT Alkaline Phosphatase Ammonia Total Creatine Kinase CK-MB (CK-2) CK-MB (CK-2) Rel Index Total Protein Albumin Urine WBC (Auto) Vancomycin Trough Salicylates Acetaminophen Plasma/Serum Alcohol Crossmatch 12/21/19 12/21/19 12/21/19 03:28 03:28 07:21 WBC 29.4 H RBC 2.30 L Hgb 6.8 L Hct 20.2 L MCH RDW 20.2 H Plt Count 746 H Lymph % (Auto) [place] % (Auto) [place] # Baso # Seg Neutrophils % Seg Neuts % (Manual) 85.0 H Lymphocytes % (Manual) 8.0 L Monocytes % (Manual) Seg Neutrophils # Seg Neutrophils # Man 25.0 H Lymphocytes # (Manual) Monocytes # (Manual) 1.5 H Eosinophils # (Manual) 0.6 H Basophils # (Manual) PT INR APTT ABG pH ABG pO2 ABG HCO3 ABG O2 Saturation ABG Base Excess ABG Hemoglobin Oxyhemoglobin Sodium Potassium Chloride Carbon Dioxide 17 L BUN 57 H Creatinine 1.4 H D Glucose POC Glucose 124 H Lactic Acid Calcium Ionized Calcium Phosphorus Magnesium Total Bilirubin AST ALT Alkaline Phosphatase Ammonia Total Creatine Kinase CK-MB (CK-2) CK-MB (CK-2) Rel Index Total Protein Albumin Urine WBC (Auto) Vancomycin Trough Salicylates Acetaminophen Plasma/Serum Alcohol Crossmatch 12/21/19 12/21/19 12/21/19 08:56 12:06 14:53 WBC RBC Hgb 7.2 L Hct 22.9 L MCH RDW Plt Count Lymph % (Auto) [place] % (Auto) [place] # Baso # Seg Neutrophils % Seg Neuts % (Manual) Lymphocytes % (Manual) Monocytes % (Manual) Seg Neutrophils # Seg Neutrophils # Man Lymphocytes # (Manual) Monocytes # (Manual) Eosinophils # (Manual) Basophils # (Manual) PT INR APTT ABG pH ABG pO2 ABG HCO3 ABG O2 Saturation ABG Base Excess ABG Hemoglobin Oxyhemoglobin Sodium Potassium Chloride Carbon Dioxide BUN Creatinine Glucose POC Glucose 116 H Lactic Acid Calcium Ionized Calcium Phosphorus Magnesium Total Bilirubin AST ALT Alkaline Phosphatase Ammonia Total Creatine Kinase CK-MB (CK-2) CK-MB (CK-2) Rel Index Total Protein Albumin Urine WBC (Auto) Vancomycin Trough 33.8 H Salicylates Acetaminophen Plasma/Serum Alcohol Crossmatch 12/21/19 12/21/19 12/21/19 14:54 17:27 23:49 WBC RBC Hgb Hct MCH RDW Plt Count Lymph % (Auto) [place] % (Auto) [place] # Baso # Seg Neutrophils % Seg Neuts % (Manual) Lymphocytes % (Manual) Monocytes % (Manual) Seg Neutrophils # Seg Neutrophils # Man Lymphocytes # (Manual) Monocytes # (Manual) Eosinophils # (Manual) Basophils # (Manual) PT INR APTT ABG pH ABG pO2 ABG HCO3 ABG O2 Saturation ABG Base Excess ABG Hemoglobin Oxyhemoglobin Sodium Potassium Chloride Carbon Dioxide BUN Creatinine Glucose POC Glucose 145 H 127 H Lactic Acid Calcium Ionized Calcium Phosphorus Magnesium Total Bilirubin AST ALT Alkaline Phosphatase Ammonia Total Creatine Kinase CK-MB (CK-2) CK-MB (CK-2) Rel Index Total Protein Albumin Urine WBC (Auto) Vancomycin Trough Salicylates Acetaminophen Plasma/Serum Alcohol Crossmatch See Detail 12/22/19 12/22/19 12/22/19 04:43 05:56 08:40 WBC RBC Hgb Hct MCH RDW Plt Count Lymph % (Auto) [place] % (Auto) [place] # Baso # Seg Neutrophils % Seg Neuts % (Manual) Lymphocytes % (Manual) Monocytes % (Manual) Seg Neutrophils # Seg Neutrophils # Man Lymphocytes # (Manual) Monocytes # (Manual) Eosinophils # (Manual) Basophils # (Manual) PT INR APTT ABG pH ABG pO2 75.6 L ABG HCO3 ABG O2 Saturation ABG Base Excess -2.6 L ABG Hemoglobin 6.8 L Oxyhemoglobin 94.6 L Sodium Potassium Chloride Carbon Dioxide 17 L BUN 60 H Creatinine 1.4 H Glucose 126 H POC Glucose 153 H Lactic Acid Calcium Ionized Calcium Phosphorus Magnesium Total Bilirubin AST ALT Alkaline Phosphatase Ammonia Total Creatine Kinase CK-MB (CK-2) CK-MB (CK-2) Rel Index Total Protein Albumin Urine WBC (Auto) Vancomycin Trough Salicylates Acetaminophen Plasma/Serum Alcohol Crossmatch 12/22/19 12/22/19 12/23/19 12:07 17:49 04:30 WBC 22.4 H RBC 2.68 L Hgb 7.6 L Hct 22.9 L MCH RDW 19.9 H Plt Count 998 H Lymph % (Auto) [place] % (Auto) [place] # Baso # Seg Neutrophils % Seg Neuts % (Manual) 88.0 H Lymphocytes % (Manual) 2.0 L Monocytes % (Manual) 9.0 H Seg Neutrophils # Seg Neutrophils # Man 19.7 H Lymphocytes # (Manual) 0.4 L Monocytes # (Manual) 2.0 H Eosinophils # (Manual) Basophils # (Manual) PT INR APTT ABG pH ABG pO2 ABG HCO3 ABG O2 Saturation ABG Base Excess ABG Hemoglobin Oxyhemoglobin Sodium Potassium Chloride Carbon Dioxide BUN Creatinine Glucose POC Glucose 140 H 116 H Lactic Acid Calcium Ionized Calcium Phosphorus Magnesium Total Bilirubin AST ALT Alkaline Phosphatase Ammonia Total Creatine Kinase CK-MB (CK-2) CK-MB (CK-2) Rel Index Total Protein Albumin Urine WBC (Auto) Vancomycin Trough Salicylates Acetaminophen Plasma/Serum Alcohol Crossmatch 12/23/19 12/23/19 12/23/19 04:30 12:00 18:06 WBC RBC Hgb Hct MCH RDW Plt Count Lymph % (Auto) [place] % (Auto) [place] # Baso # Seg Neutrophils % Seg Neuts % (Manual) Lymphocytes % (Manual) Monocytes % (Manual) Seg Neutrophils # Seg Neutrophils # Man Lymphocytes # (Manual) Monocytes # (Manual) Eosinophils # (Manual) Basophils # (Manual) PT INR APTT ABG pH ABG pO2 ABG HCO3 ABG O2 Saturation ABG Base Excess ABG Hemoglobin Oxyhemoglobin Sodium Potassium 5.2 H Chloride Carbon Dioxide 21 L BUN 69 H Creatinine 1.5 H Glucose 117 H POC Glucose 128 H 138 H Lactic Acid Calcium Ionized Calcium Phosphorus Magnesium Total Bilirubin AST ALT Alkaline Phosphatase Ammonia Total Creatine Kinase CK-MB (CK-2) CK-MB (CK-2) Rel Index Total Protein Albumin Urine WBC (Auto) Vancomycin Trough Salicylates Acetaminophen Plasma/Serum Alcohol Crossmatch 12/23/19 12/24/19 12/24/19 23:46 04:31 05:08 WBC RBC Hgb Hct MCH RDW Plt Count Lymph % (Auto) [place] % (Auto) [place] # Baso # Seg Neutrophils % Seg Neuts % (Manual) Lymphocytes % (Manual) Monocytes % (Manual) Seg Neutrophils # Seg Neutrophils # Man Lymphocytes # (Manual) Monocytes # (Manual) Eosinophils # (Manual) Basophils # (Manual) PT INR APTT ABG pH ABG pO2 ABG HCO3 ABG O2 Saturation ABG Base Excess ABG Hemoglobin Oxyhemoglobin Sodium Potassium 5.3 H Chloride 107.6 H Carbon Dioxide 20 L BUN 72 H Creatinine 1.6 H Glucose 120 H POC Glucose 120 H 140 H Lactic Acid Calcium Ionized Calcium Phosphorus Magnesium Total Bilirubin AST ALT Alkaline Phosphatase Ammonia Total Creatine Kinase CK-MB (CK-2) CK-MB (CK-2) Rel Index Total Protein Albumin Urine WBC (Auto) Vancomycin Trough Salicylates Acetaminophen Plasma/Serum Alcohol Crossmatch 12/24/19 12/24/19 12/25/19 11:58 17:49 03:47 WBC 36.2 H RBC 2.92 L Hgb 8.4 L Hct 26.1 L MCH RDW 20.2 H Plt Count 942 H Lymph % (Auto) [place] % (Auto) [place] # Baso # Seg Neutrophils % Seg Neuts % (Manual) 97.5 H Lymphocytes % (Manual) 1.0 L Monocytes % (Manual) Seg Neutrophils # Seg Neutrophils # Man 35.3 H Lymphocytes # (Manual) 0.4 L Monocytes # (Manual) Eosinophils # (Manual) Basophils # (Manual) PT INR APTT ABG pH ABG pO2 ABG HCO3 ABG O2 Saturation ABG Base Excess ABG Hemoglobin Oxyhemoglobin Sodium Potassium Chloride Carbon Dioxide BUN Creatinine Glucose POC Glucose 146 H 131 H Lactic Acid Calcium Ionized Calcium Phosphorus Magnesium Total Bilirubin AST ALT Alkaline Phosphatase Ammonia Total Creatine Kinase CK-MB (CK-2) CK-MB (CK-2) Rel Index Total Protein Albumin Urine WBC (Auto) Vancomycin Trough Salicylates Acetaminophen Plasma/Serum Alcohol Crossmatch 12/25/19 12/25/19 12/25/19 03:47 05:30 12:23 WBC RBC Hgb Hct MCH RDW Plt Count Lymph % (Auto) [place] % (Auto) [place] # Baso # Seg Neutrophils % Seg Neuts % (Manual) Lymphocytes % (Manual) Monocytes % (Manual) Seg Neutrophils # Seg Neutrophils # Man Lymphocytes # (Manual) Monocytes # (Manual) Eosinophils # (Manual) Basophils # (Manual) PT INR APTT ABG pH ABG pO2 ABG HCO3 ABG O2 Saturation ABG Base Excess ABG Hemoglobin Oxyhemoglobin Sodium Potassium Chloride Carbon Dioxide 15 L BUN 70 H Creatinine 1.7 H Glucose 153 H POC Glucose 169 H 135 H Lactic Acid Calcium Ionized Calcium Phosphorus Magnesium Total Bilirubin AST ALT Alkaline Phosphatase Ammonia Total Creatine Kinase CK-MB (CK-2) CK-MB (CK-2) Rel Index Total Protein Albumin Urine WBC (Auto) Vancomycin Trough Salicylates Acetaminophen Plasma/Serum Alcohol Crossmatch 12/25/19 12/25/19 12/26/19 17:37 23:29 09:47 WBC 22.1 H RBC 2.83 L Hgb 7.9 L Hct 25.5 L MCH RDW 20.0 H Plt Count 894 H Lymph % (Auto) [place] % (Auto) [place] # Baso # Seg Neutrophils % Seg Neuts % (Manual) Lymphocytes % (Manual) Monocytes % (Manual) Seg Neutrophils # Seg Neutrophils # Man Lymphocytes # (Manual) Monocytes # (Manual) Eosinophils # (Manual) Basophils # (Manual) PT INR APTT ABG pH ABG pO2 ABG HCO3 ABG O2 Saturation ABG Base Excess ABG Hemoglobin Oxyhemoglobin Sodium Potassium Chloride Carbon Dioxide BUN Creatinine Glucose POC Glucose 120 H 140 H Lactic Acid Calcium Ionized Calcium Phosphorus Magnesium Total Bilirubin AST ALT Alkaline Phosphatase Ammonia Total Creatine Kinase CK-MB (CK-2) CK-MB (CK-2) Rel Index Total Protein Albumin Urine WBC (Auto) Vancomycin Trough Salicylates Acetaminophen Plasma/Serum Alcohol Crossmatch 12/26/19 12/26/19 12/26/19 09:47 11:46 17:52 WBC RBC Hgb Hct MCH RDW Plt Count Lymph % (Auto) [place] % (Auto) [place] # Baso # Seg Neutrophils % Seg Neuts % (Manual) Lymphocytes % (Manual) Monocytes % (Manual) Seg Neutrophils # Seg Neutrophils # Man Lymphocytes # (Manual) Monocytes # (Manual) Eosinophils # (Manual) Basophils # (Manual) PT INR APTT ABG pH ABG pO2 ABG HCO3 ABG O2 Saturation ABG Base Excess ABG Hemoglobin Oxyhemoglobin Sodium Potassium Chloride Carbon Dioxide 18 L BUN 65 H Creatinine 1.4 H Glucose 132 H POC Glucose 110 H 145 H Lactic Acid Calcium Ionized Calcium Phosphorus Magnesium Total Bilirubin AST ALT Alkaline Phosphatase Ammonia Total Creatine Kinase CK-MB (CK-2) CK-MB (CK-2) Rel Index Total Protein Albumin Urine WBC (Auto) Vancomycin Trough Salicylates Acetaminophen Plasma/Serum Alcohol Crossmatch 12/27/19 12/27/19 12/27/19 00:01 03:42 03:42 WBC 18.0 H RBC 2.86 L Hgb 8.0 L Hct 25.2 L MCH RDW 19.2 H Plt Count 873 H Lymph % (Auto) 8.4 L [place] % (Auto) 7.5 H [place] # 1.4 H Baso # 0.2 H Seg Neutrophils % 82.2 H Seg Neuts % (Manual) Lymphocytes % (Manual) Monocytes % (Manual) Seg Neutrophils # 14.8 H Seg Neutrophils # Man Lymphocytes # (Manual) Monocytes # (Manual) Eosinophils # (Manual) Basophils # (Manual) PT INR APTT ABG pH ABG pO2 ABG HCO3 ABG O2 Saturation ABG Base Excess ABG Hemoglobin Oxyhemoglobin Sodium Potassium Chloride Carbon Dioxide BUN 73 H Creatinine 1.4 H Glucose 119 H POC Glucose 124 H Lactic Acid Calcium Ionized Calcium Phosphorus Magnesium Total Bilirubin AST ALT Alkaline Phosphatase Ammonia Total Creatine Kinase CK-MB (CK-2) CK-MB (CK-2) Rel Index Total Protein Albumin Urine WBC (Auto) Vancomycin Trough Salicylates Acetaminophen Plasma/Serum Alcohol Crossmatch 12/27/19 12/27/19 12/27/19 05:45 11:45 17:29 WBC RBC Hgb Hct MCH RDW Plt Count Lymph % (Auto) [place] % (Auto) [place] # Baso # Seg Neutrophils % Seg Neuts % (Manual) Lymphocytes % (Manual) Monocytes % (Manual) Seg Neutrophils # Seg Neutrophils # Man Lymphocytes # (Manual) Monocytes # (Manual) Eosinophils # (Manual) Basophils # (Manual) PT INR APTT ABG pH ABG pO2 ABG HCO3 ABG O2 Saturation ABG Base Excess ABG Hemoglobin Oxyhemoglobin Sodium Potassium Chloride Carbon Dioxide BUN Creatinine Glucose POC Glucose 131 H 123 H 134 H Lactic Acid Calcium Ionized Calcium Phosphorus Magnesium Total Bilirubin AST ALT Alkaline Phosphatase Ammonia Total Creatine Kinase CK-MB (CK-2) CK-MB (CK-2) Rel Index Total Protein Albumin Urine WBC (Auto) Vancomycin Trough Salicylates Acetaminophen Plasma/Serum Alcohol Crossmatch 12/28/19 12/28/19 12/28/19 00:12 05:14 11:53 WBC RBC Hgb Hct MCH RDW Plt Count Lymph % (Auto) [place] % (Auto) [place] # Baso # Seg Neutrophils % Seg Neuts % (Manual) Lymphocytes % (Manual) Monocytes % (Manual) Seg Neutrophils # Seg Neutrophils # Man Lymphocytes # (Manual) Monocytes # (Manual) Eosinophils # (Manual) Basophils # (Manual) PT INR APTT ABG pH ABG pO2 ABG HCO3 ABG O2 Saturation ABG Base Excess ABG Hemoglobin Oxyhemoglobin Sodium Potassium Chloride Carbon Dioxide BUN Creatinine Glucose POC Glucose 138 H 130 H 146 H Lactic Acid Calcium Ionized Calcium Phosphorus Magnesium Total Bilirubin AST ALT Alkaline Phosphatase Ammonia Total Creatine Kinase CK-MB (CK-2) CK-MB (CK-2) Rel Index Total Protein Albumin Urine WBC (Auto) Vancomycin Trough Salicylates Acetaminophen Plasma/Serum Alcohol Crossmatch 12/28/19 12/29/19 12/29/19 17:39 00:01 18:11 WBC RBC Hgb Hct MCH RDW Plt Count Lymph % (Auto) [place] % (Auto) [place] # Baso # Seg Neutrophils % Seg Neuts % (Manual) Lymphocytes % (Manual) Monocytes % (Manual) Seg Neutrophils # Seg Neutrophils # Man Lymphocytes # (Manual) Monocytes # (Manual) Eosinophils # (Manual) Basophils # (Manual) PT INR APTT ABG pH ABG pO2 ABG HCO3 ABG O2 Saturation ABG Base Excess ABG Hemoglobin Oxyhemoglobin Sodium Potassium Chloride Carbon Dioxide BUN Creatinine Glucose POC Glucose 117 H 139 H 130 H Lactic Acid Calcium Ionized Calcium Phosphorus Magnesium Total Bilirubin AST ALT Alkaline Phosphatase Ammonia Total Creatine Kinase CK-MB (CK-2) CK-MB (CK-2) Rel Index Total Protein Albumin Urine WBC (Auto) Vancomycin Trough Salicylates Acetaminophen Plasma/Serum Alcohol Crossmatch 12/29/19 12/30/19 12/30/19 23:09 00:02 01:06 WBC 16.7 H RBC 2.91 L Hgb 8.2 L Hct 25.4 L MCH RDW 18.7 H Plt Count 708 H Lymph % (Auto) 9.4 L [place] % (Auto) [place] # 0.9 H Baso # Seg Neutrophils % 83.5 H Seg Neuts % (Manual) Lymphocytes % (Manual) Monocytes % (Manual) Seg Neutrophils # 14.0 H Seg Neutrophils # Man Lymphocytes # (Manual) Monocytes # (Manual) Eosinophils # (Manual) Basophils # (Manual) PT INR APTT ABG pH ABG pO2 ABG HCO3 ABG O2 Saturation ABG Base Excess ABG Hemoglobin Oxyhemoglobin Sodium Potassium Chloride Carbon Dioxide BUN Creatinine Glucose POC Glucose 120 H 114 H Lactic Acid Calcium Ionized Calcium Phosphorus Magnesium Total Bilirubin AST ALT Alkaline Phosphatase Ammonia Total Creatine Kinase CK-MB (CK-2) CK-MB (CK-2) Rel Index Total Protein Albumin Urine WBC (Auto) Vancomycin Trough Salicylates Acetaminophen Plasma/Serum Alcohol Crossmatch 12/30/19 12/30/19 12/30/19 01:06 04:23 05:18 WBC RBC Hgb Hct MCH RDW Plt Count Lymph % (Auto) [place] % (Auto) [place] # Baso # Seg Neutrophils % Seg Neuts % (Manual) Lymphocytes % (Manual) Monocytes % (Manual) Seg Neutrophils # Seg Neutrophils # Man Lymphocytes # (Manual) Monocytes # (Manual) Eosinophils # (Manual) Basophils # (Manual) PT INR APTT ABG pH ABG pO2 ABG HCO3 ABG O2 Saturation ABG Base Excess ABG Hemoglobin 8.3 L Oxyhemoglobin Sodium Potassium Chloride Carbon Dioxide BUN 70 H Creatinine Glucose 122 H POC Glucose 130 H Lactic Acid Calcium Ionized Calcium Phosphorus Magnesium Total Bilirubin AST ALT Alkaline Phosphatase Ammonia Total Creatine Kinase CK-MB (CK-2) CK-MB (CK-2) Rel Index Total Protein Albumin Urine WBC (Auto) Vancomycin Trough Salicylates Acetaminophen Plasma/Serum Alcohol Crossmatch 12/30/19 12/30/19 12/30/19 05:40 12:17 17:43 WBC RBC Hgb Hct MCH RDW Plt Count Lymph % (Auto) [place] % (Auto) [place] # Baso # Seg Neutrophils % Seg Neuts % (Manual) Lymphocytes % (Manual) Monocytes % (Manual) Seg Neutrophils # Seg Neutrophils # Man Lymphocytes # (Manual) Monocytes # (Manual) Eosinophils # (Manual) Basophils # (Manual) PT INR APTT ABG pH ABG pO2 ABG HCO3 ABG O2 Saturation ABG Base Excess ABG Hemoglobin Oxyhemoglobin Sodium Potassium Chloride Carbon Dioxide BUN Creatinine Glucose POC Glucose 135 H 132 H 118 H Lactic Acid Calcium Ionized Calcium Phosphorus Magnesium Total Bilirubin AST ALT Alkaline Phosphatase Ammonia Total Creatine Kinase CK-MB (CK-2) CK-MB (CK-2) Rel Index Total Protein Albumin Urine WBC (Auto) Vancomycin Trough Salicylates Acetaminophen Plasma/Serum Alcohol Crossmatch 12/30/19 12/31/19 12/31/19 23:29 05:19 17:50 WBC RBC Hgb Hct MCH RDW Plt Count Lymph % (Auto) [place] % (Auto) [place] # Baso # Seg Neutrophils % Seg Neuts % (Manual) Lymphocytes % (Manual) Monocytes % (Manual) Seg Neutrophils # Seg Neutrophils # Man Lymphocytes # (Manual) Monocytes # (Manual) Eosinophils # (Manual) Basophils # (Manual) PT INR APTT ABG pH ABG pO2 ABG HCO3 ABG O2 Saturation ABG Base Excess ABG Hemoglobin Oxyhemoglobin Sodium Potassium Chloride Carbon Dioxide BUN Creatinine Glucose POC Glucose 114 H 109 H 116 H Lactic Acid Calcium Ionized Calcium Phosphorus Magnesium Total Bilirubin AST ALT Alkaline Phosphatase Ammonia Total Creatine Kinase CK-MB (CK-2) CK-MB (CK-2) Rel Index Total Protein Albumin Urine WBC (Auto) Vancomycin Trough Salicylates Acetaminophen Plasma/Serum Alcohol Crossmatch 01/01/20 01/01/20 01/01/20 00:10 05:19 12:02 WBC RBC Hgb Hct MCH RDW Plt Count Lymph % (Auto) [place] % (Auto) [place] # Baso # Seg Neutrophils % Seg Neuts % (Manual) Lymphocytes % (Manual) Monocytes % (Manual) Seg Neutrophils # Seg Neutrophils # Man Lymphocytes # (Manual) Monocytes # (Manual) Eosinophils # (Manual) Basophils # (Manual) PT INR APTT ABG pH ABG pO2 ABG HCO3 ABG O2 Saturation ABG Base Excess ABG Hemoglobin Oxyhemoglobin Sodium Potassium Chloride Carbon Dioxide BUN Creatinine Glucose POC Glucose 131 H 122 H 136 H Lactic Acid Calcium Ionized Calcium Phosphorus Magnesium Total Bilirubin AST ALT Alkaline Phosphatase Ammonia Total Creatine Kinase CK-MB (CK-2) CK-MB (CK-2) Rel Index Total Protein Albumin Urine WBC (Auto) Vancomycin Trough Salicylates Acetaminophen Plasma/Serum Alcohol Crossmatch 01/02/20 01/02/20 01/02/20 00:24 05:36 11:41 WBC RBC Hgb Hct MCH RDW Plt Count Lymph % (Auto) [place] % (Auto) [place] # Baso # Seg Neutrophils % Seg Neuts % (Manual) Lymphocytes % (Manual) Monocytes % (Manual) Seg Neutrophils # Seg Neutrophils # Man Lymphocytes # (Manual) Monocytes # (Manual) Eosinophils # (Manual) Basophils # (Manual) PT INR APTT ABG pH ABG pO2 ABG HCO3 ABG O2 Saturation ABG Base Excess ABG Hemoglobin Oxyhemoglobin Sodium Potassium Chloride Carbon Dioxide BUN Creatinine Glucose POC Glucose 119 H 109 H 125 H Lactic Acid Calcium Ionized Calcium Phosphorus Magnesium Total Bilirubin AST ALT Alkaline Phosphatase Ammonia Total Creatine Kinase CK-MB (CK-2) CK-MB (CK-2) Rel Index Total Protein Albumin Urine WBC (Auto) Vancomycin Trough Salicylates Acetaminophen Plasma/Serum Alcohol Crossmatch 01/02/20 01/03/20 01/03/20 17:49 05:29 12:13 WBC RBC Hgb Hct MCH RDW Plt Count Lymph % (Auto) [place] % (Auto) [place] # Baso # Seg Neutrophils % Seg Neuts % (Manual) Lymphocytes % (Manual) Monocytes % (Manual) Seg Neutrophils # Seg Neutrophils # Man Lymphocytes # (Manual) Monocytes # (Manual) Eosinophils # (Manual) Basophils # (Manual) PT INR APTT ABG pH ABG pO2 ABG HCO3 ABG O2 Saturation ABG Base Excess ABG Hemoglobin Oxyhemoglobin Sodium Potassium Chloride Carbon Dioxide BUN Creatinine Glucose POC Glucose 130 H 132 H 113 H Lactic Acid Calcium Ionized Calcium Phosphorus Magnesium Total Bilirubin AST ALT Alkaline Phosphatase Ammonia Total Creatine Kinase CK-MB (CK-2) CK-MB (CK-2) Rel Index Total Protein Albumin Urine WBC (Auto) Vancomycin Trough Salicylates Acetaminophen Plasma/Serum Alcohol Crossmatch 01/03/20 01/04/20 01/04/20 17:32 00:19 05:26 WBC RBC Hgb Hct MCH RDW Plt Count Lymph % (Auto) [place] % (Auto) [place] # Baso # Seg Neutrophils % Seg Neuts % (Manual) Lymphocytes % (Manual) Monocytes % (Manual) Seg Neutrophils # Seg Neutrophils # Man Lymphocytes # (Manual) Monocytes # (Manual) Eosinophils # (Manual) Basophils # (Manual) PT INR APTT ABG pH ABG pO2 ABG HCO3 ABG O2 Saturation ABG Base Excess ABG Hemoglobin Oxyhemoglobin Sodium Potassium Chloride Carbon Dioxide BUN Creatinine Glucose POC Glucose 127 H 141 H 129 H Lactic Acid Calcium Ionized Calcium Phosphorus Magnesium Total Bilirubin AST ALT Alkaline Phosphatase Ammonia Total Creatine Kinase CK-MB (CK-2) CK-MB (CK-2) Rel Index Total Protein Albumin Urine WBC (Auto) Vancomycin Trough Salicylates Acetaminophen Plasma/Serum Alcohol Crossmatch 01/04/20 01/04/20 01/05/20 11:39 17:29 05:22 WBC RBC Hgb Hct MCH RDW Plt Count Lymph % (Auto) [place] % (Auto) [place] # Baso # Seg Neutrophils % Seg Neuts % (Manual) Lymphocytes % (Manual) Monocytes % (Manual) Seg Neutrophils # Seg Neutrophils # Man Lymphocytes # (Manual) Monocytes # (Manual) Eosinophils # (Manual) Basophils # (Manual) PT INR APTT ABG pH ABG pO2 ABG HCO3 ABG O2 Saturation ABG Base Excess ABG Hemoglobin Oxyhemoglobin Sodium Potassium Chloride Carbon Dioxide BUN Creatinine Glucose POC Glucose 167 H 132 H 121 H Lactic Acid Calcium Ionized Calcium Phosphorus Magnesium Total Bilirubin AST ALT Alkaline Phosphatase Ammonia Total Creatine Kinase CK-MB (CK-2) CK-MB (CK-2) Rel Index Total Protein Albumin Urine WBC (Auto) Vancomycin Trough Salicylates Acetaminophen Plasma/Serum Alcohol Crossmatch 01/05/20 01/05/20 01/05/20 12:25 17:40 18:06 WBC RBC Hgb Hct MCH RDW Plt Count Lymph % (Auto) [place] % (Auto) [place] # Baso # Seg Neutrophils % Seg Neuts % (Manual) Lymphocytes % (Manual) Monocytes % (Manual) Seg Neutrophils # Seg Neutrophils # Man Lymphocytes # (Manual) Monocytes # (Manual) Eosinophils # (Manual) Basophils # (Manual) PT INR APTT ABG pH 7.472 H ABG pO2 99.2 H ABG HCO3 ABG O2 Saturation ABG Base Excess ABG Hemoglobin 7.8 L Oxyhemoglobin Sodium Potassium Chloride Carbon Dioxide BUN Creatinine Glucose POC Glucose 106 H 110 H Lactic Acid Calcium Ionized Calcium Phosphorus Magnesium Total Bilirubin AST ALT Alkaline Phosphatase Ammonia Total Creatine Kinase CK-MB (CK-2) CK-MB (CK-2) Rel Index Total Protein Albumin Urine WBC (Auto) Vancomycin Trough Salicylates Acetaminophen Plasma/Serum Alcohol Crossmatch 01/06/20 01/06/20 01/06/20 00:11 05:16 11:30 WBC RBC Hgb Hct MCH RDW Plt Count Lymph % (Auto) [place] % (Auto) [place] # Baso # Seg Neutrophils % Seg Neuts % (Manual) Lymphocytes % (Manual) Monocytes % (Manual) Seg Neutrophils # Seg Neutrophils # Man Lymphocytes # (Manual) Monocytes # (Manual) Eosinophils # (Manual) Basophils # (Manual) PT INR APTT ABG pH ABG pO2 ABG HCO3 ABG O2 Saturation ABG Base Excess ABG Hemoglobin Oxyhemoglobin Sodium Potassium Chloride Carbon Dioxide BUN Creatinine Glucose POC Glucose 108 H 124 H 125 H Lactic Acid Calcium Ionized Calcium Phosphorus Magnesium Total Bilirubin AST ALT Alkaline Phosphatase Ammonia Total Creatine Kinase CK-MB (CK-2) CK-MB (CK-2) Rel Index Total Protein Albumin Urine WBC (Auto) Vancomycin Trough Salicylates Acetaminophen Plasma/Serum Alcohol Crossmatch 01/06/20 01/06/20 01/07/20 17:53 23:51 04:12 WBC 16.5 H RBC 3.29 L Hgb 9.3 L Hct 28.1 L MCH RDW 18.2 H Plt Count 526 H Lymph % (Auto) 8.4 L [place] % (Auto) [place] # 1.0 H Baso # Seg Neutrophils % 84.4 H Seg Neuts % (Manual) Lymphocytes % (Manual) Monocytes % (Manual) Seg Neutrophils # 13.9 H Seg Neutrophils # Man Lymphocytes # (Manual) Monocytes # (Manual) Eosinophils # (Manual) Basophils # (Manual) PT INR APTT ABG pH ABG pO2 ABG HCO3 ABG O2 Saturation ABG Base Excess ABG Hemoglobin Oxyhemoglobin Sodium Potassium Chloride Carbon Dioxide BUN Creatinine Glucose POC Glucose 166 H 128 H Lactic Acid Calcium Ionized Calcium Phosphorus Magnesium Total Bilirubin AST ALT Alkaline Phosphatase Ammonia Total Creatine Kinase CK-MB (CK-2) CK-MB (CK-2) Rel Index Total Protein Albumin Urine WBC (Auto) Vancomycin Trough Salicylates Acetaminophen Plasma/Serum Alcohol Crossmatch 01/07/20 01/07/20 01/07/20 04:12 04:45 11:51 WBC RBC Hgb Hct MCH RDW Plt Count Lymph % (Auto) [place] % (Auto) [place] # Baso # Seg Neutrophils % Seg Neuts % (Manual) Lymphocytes % (Manual) Monocytes % (Manual) Seg Neutrophils # Seg Neutrophils # Man Lymphocytes # (Manual) Monocytes # (Manual) Eosinophils # (Manual) Basophils # (Manual) PT INR APTT ABG pH ABG pO2 ABG HCO3 ABG O2 Saturation ABG Base Excess ABG Hemoglobin Oxyhemoglobin Sodium 136 L Potassium Chloride Carbon Dioxide 21 L BUN 44 H Creatinine 0.6 L Glucose 124 H POC Glucose 134 H 138 H Lactic Acid Calcium Ionized Calcium Phosphorus Magnesium Total Bilirubin AST ALT Alkaline Phosphatase Ammonia Total Creatine Kinase CK-MB (CK-2) CK-MB (CK-2) Rel Index Total Protein Albumin Urine WBC (Auto) Vancomycin Trough Salicylates Acetaminophen Plasma/Serum Alcohol Crossmatch 01/07/20 01/08/20 01/08/20 17:36 00:33 05:29 WBC RBC Hgb Hct MCH RDW Plt Count Lymph % (Auto) [place] % (Auto) [place] # Baso # Seg Neutrophils % Seg Neuts % (Manual) Lymphocytes % (Manual) Monocytes % (Manual) Seg Neutrophils # Seg Neutrophils # Man Lymphocytes # (Manual) Monocytes # (Manual) Eosinophils # (Manual) Basophils # (Manual) PT INR APTT ABG pH ABG pO2 ABG HCO3 ABG O2 Saturation ABG Base Excess ABG Hemoglobin Oxyhemoglobin Sodium Potassium Chloride Carbon Dioxide BUN Creatinine Glucose POC Glucose 128 H 119 H 124 H Lactic Acid Calcium Ionized Calcium Phosphorus Magnesium Total Bilirubin AST ALT Alkaline Phosphatase Ammonia Total Creatine Kinase CK-MB (CK-2) CK-MB (CK-2) Rel Index Total Protein Albumin Urine WBC (Auto) Vancomycin Trough Salicylates Acetaminophen Plasma/Serum Alcohol Crossmatch 01/08/20 01/08/20 01/08/20 12:51 20:25 23:22 WBC RBC Hgb Hct MCH RDW Plt Count Lymph % (Auto) Dewey % (Auto) Dewey # Baso # Seg Neutrophils % Seg Neuts % (Manual) Lymphocytes % (Manual) Monocytes % (Manual) Seg Neutrophils # Seg Neutrophils # Man Lymphocytes # (Manual) Monocytes # (Manual) Eosinophils # (Manual) Basophils # (Manual) PT INR APTT ABG pH ABG pO2 132.2 H ABG HCO3 ABG O2 Saturation ABG Base Excess ABG Hemoglobin Oxyhemoglobin Sodium Potassium Chloride Carbon Dioxide BUN Creatinine Glucose POC Glucose 128 H 127 H Lactic Acid Calcium Ionized Calcium Phosphorus Magnesium Total Bilirubin AST ALT Alkaline Phosphatase Ammonia Total Creatine Kinase CK-MB (CK-2) CK-MB (CK-2) Rel Index Total Protein Albumin Urine WBC (Auto) Vancomycin Trough Salicylates Acetaminophen Plasma/Serum Alcohol Crossmatch 01/09/20 01/09/20 01/09/20 05:48 08:51 11:29 WBC RBC Hgb Hct MCH RDW Plt Count Lymph % (Auto) [place]wey % (Auto) Dewey # Baso # Seg Neutrophils % Seg Neuts % (Manual) Lymphocytes % (Manual) Monocytes % (Manual) Seg Neutrophils # Seg Neutrophils # Man Lymphocytes # (Manual) Monocytes # (Manual) Eosinophils # (Manual) Basophils # (Manual) PT INR APTT ABG pH ABG pO2 94.3 H ABG HCO3 ABG O2 Saturation ABG Base Excess ABG Hemoglobin 9.5 L Oxyhemoglobin Sodium Potassium Chloride Carbon Dioxide BUN Creatinine Glucose POC Glucose 120 H 112 H Lactic Acid Calcium Ionized Calcium Phosphorus Magnesium Total Bilirubin AST ALT Alkaline Phosphatase Ammonia Total Creatine Kinase CK-MB (CK-2) CK-MB (CK-2) Rel Index Total Protein Albumin Urine WBC (Auto) Vancomycin Trough Salicylates Acetaminophen Plasma/Serum Alcohol Crossmatch 01/09/20 01/10/20 01/10/20 17:57 05:17 12:28 WBC RBC Hgb Hct MCH RDW Plt Count Lymph % (Auto) [place]wey % (Auto) Dewey # Baso # Seg Neutrophils % Seg Neuts % (Manual) Lymphocytes % (Manual) Monocytes % (Manual) Seg Neutrophils # Seg Neutrophils # Man Lymphocytes # (Manual) Monocytes # (Manual) Eosinophils # (Manual) Basophils # (Manual) PT INR APTT ABG pH ABG pO2 ABG HCO3 ABG O2 Saturation ABG Base Excess ABG Hemoglobin Oxyhemoglobin Sodium Potassium Chloride Carbon Dioxide BUN Creatinine Glucose POC Glucose 122 H 115 H 116 H Lactic Acid Calcium Ionized Calcium Phosphorus Magnesium Total Bilirubin AST ALT Alkaline Phosphatase Ammonia Total Creatine Kinase CK-MB (CK-2) CK-MB (CK-2) Rel Index Total Protein Albumin Urine WBC (Auto) Vancomycin Trough Salicylates Acetaminophen Plasma/Serum Alcohol Crossmatch 01/10/20 01/10/20 01/11/20 18:25 23:47 06:05 WBC RBC Hgb Hct MCH RDW Plt Count Lymph % (Auto) [place]wey % (Auto) Dewey # Baso # Seg Neutrophils % Seg Neuts % (Manual) Lymphocytes % (Manual) Monocytes % (Manual) Seg Neutrophils # Seg Neutrophils # Man Lymphocytes # (Manual) Monocytes # (Manual) Eosinophils # (Manual) Basophils # (Manual) PT INR APTT ABG pH ABG pO2 ABG HCO3 ABG O2 Saturation ABG Base Excess ABG Hemoglobin Oxyhemoglobin Sodium Potassium Chloride Carbon Dioxide BUN Creatinine Glucose POC Glucose 123 H 115 H 151 H Lactic Acid Calcium Ionized Calcium Phosphorus Magnesium Total Bilirubin AST ALT Alkaline Phosphatase Ammonia Total Creatine Kinase CK-MB (CK-2) CK-MB (CK-2) Rel Index Total Protein Albumin Urine WBC (Auto) Vancomycin Trough Salicylates Acetaminophen Plasma/Serum Alcohol Crossmatch 01/11/20 01/11/20 07:00 07:00 WBC 11.8 H RBC 3.40 L Hgb 9.4 L Hct 29.3 L MCH RDW 18.1 H Plt Count 549 H Lymph % (Auto) [place]wey % (Auto) 9.1 H Dewey # 1.1 H Baso # Seg Neutrophils % 73.3 H Seg Neuts % (Manual) Lymphocytes % (Manual) Monocytes % (Manual) Seg Neutrophils # 8.7 H Seg Neutrophils # Man Lymphocytes # (Manual) Monocytes # (Manual) Eosinophils # (Manual) Basophils # (Manual) PT INR APTT ABG pH ABG pO2 ABG HCO3 ABG O2 Saturation ABG Base Excess ABG Hemoglobin Oxyhemoglobin Sodium 134 L Potassium Chloride 97.7 L Carbon Dioxide 21 L BUN 38 H Creatinine 0.5 L Glucose 168 H POC Glucose Lactic Acid Calcium 10.5 H Ionized Calcium Phosphorus Magnesium Total Bilirubin AST ALT Alkaline Phosphatase Ammonia Total Creatine Kinase CK-MB (CK-2) CK-MB (CK-2) Rel Index Total Protein Albumin Urine WBC (Auto) Vancomycin Trough Salicylates Acetaminophen Plasma/Serum Alcohol Crossmatch Allied health notes reviewed: nursing
[2020-01-11] MEDS: QUEtiapine 100 MG TAB FEEDTUBE SCH (21:44)
--- NOTE | 2020-01-12 08:58 | Progress Note ---
Assessment and Plan Assessment and plan: --Anoxic brain injury: suspected CT head: No acute abnormality. neurology consult placed, EEG ordered showed Generalized slowing. No seizures or epileptiform activity. Per neurology : Patient found to have intact corneal/VOR/cough reflexes, and is withdrawing lower extremities, therefore patient is not found to be brain . However, given that patient had an out of hospital cardiac arrest, the time of which is uncertain, the likelihood of meaningful neurological recovery is somewhat low. -Patient now opening her eyes and able to follow any command by nodding head --Acute Respiratory failure s/p intubation, s/p trach and PEG on 12/12 on T-piece CTA chest negative for PE, Echo diastolic dysfunction --Anemia, microcytic Status post 3 units PRBC transfusion, H&H low stable --Acute metabolic encephalopathy/toxic encephalopathy stable --Hyperammonemia -resolved --Metabolic Acidosis: Improved --Transaminitis; resolved --Leucocytosis with sepsis Source MRSA bacteremia and MSSA pneumonia. UA showed pyuria. RUQ US showed no ascites. Repeat TTE negative for vegetation. Completed 7 days of Ceftriaxone on 11/29/2019. Treated with Abx vancomycin 1 gm IV q 12 hour total 2 week till 12/30/2019 --MSSA pneumonia: Status post vancomycin till 12/30/2019 --ALcohol USe Disorder; Supportive care --Seizure disorder: Seizure precautions , continue Keppra --H. Influenzae, tracheobronchitis, treated with abx --DNR CODE STATUS --Discharge planning ; social and financial issues Case management assisting poor prognosis The high probability of a clinically significant, sudden or life threatening deterioration of the [neurology,respiratory] system(s) required my full and direct attention, intervention and personal management. The aggregate critical care time was [32] minutes. This time is in addition to time spent performing reported procedures but includes the following: [x] Data Review and interpretation [x] Patient assessment and monitoring of vital signs [x] Documentation [x] Medication orders and management Disposition: prognosis guarded. Family okay for DNR, placement pending 12/31/19: still intubated via trach, no restraints needed, FiO2 30%, PEEP 6, Difficulty getting to Hospice, mother wants to kept updated. Patient has 4 kids, 2 sons in long-term, 1 son is transgender and not involved per mother; Daughter is Deborah who is NOK 01/01/20: Still intubated, but patient opening her eyes but does not follow any command. Unable to set up inpatient hospice 01/01 pending placement, patient is self funded 01/02 pending placement, patient is self funded 01/03 pending placement, patient is self funded. still on vent. updated patient's mother 01/04 pending placement, patient is self funded. still on vent. 01/05 pending placement, patient is tolerating T-piece trial today -off vent. 01/06 patient getting T-piece trial daily, need placement. Patient is unfunded 01/08: Pt opened for 24 hours and tolerating T-piece with 8 L O2. Patient is unfunded and unable to find a placement. Family is refusing to accept the patient at home with home hospice. 01/09: daytime T-piece trials as tolerated and continue to rest on AC for now. pending placement 01/10; remains on ventilatory support DNR, for placement 01/11: Clinically stable, tracheostomy on T-piece, DC planning / placement History Interval history: Patient seen and examined at the bedside this morning Patient's chart medications, vital signs reviewed Patient status post tracheostomy on T-piece In mild distress Vital signs noted Hospitalist Physical - Constitutional Vitals: Temp Pulse Resp BP Pulse Ox 98.6 F 115 H 28 H 116/77 99 01/12/20 03:39 01/12/20 07:00 01/12/20 07:00 01/12/20 07:00 01/12/20 07:00 General appearance: Present: mild distress, other (Tracheostomy on T-piece) - EENT Eyes: Present: PERRL, EOM intact - Neck Neck: Present: supple, normal ROM, other (Tracheostomy) - Respiratory Respiratory effort: normal Respiratory: bilateral: diminished, rhonchi, negative: rales, wheezing - Cardiovascular Rhythm: regular Heart Sounds: Present: S1 & S2 - Extremities Extremities: no ischemia, No edema - Abdominal General gastrointestinal: soft, non-tender, non-distended, normal bowel sounds - Integumentary Integumentary: Present: clear, warm - Psychiatric Psychiatric: other (Tracheostomy on T-piece) - Neurologic Neurologic: moves all extremities, other (Tracheostomy on T-piece) Results - Labs CBC & Chem 7: 01/11/20 07:00 01/11/20 07:00 Labs: Laboratory Last Values WBC 11.8 K/mm3 (4.5-11.0) H 01/11/20 07:00 RBC 3.40 M/mm3 (3.65-5.03) L 01/11/20 07:00 Hgb 9.4 gm/dl (10.1-14.3) L 01/11/20 07:00 Hct 29.3 % (30.3-42.9) L 01/11/20 07:00 MCV 86 fl (79-97) 01/11/20 07:00 MCH 28 pg (28-32) 01/11/20 07:00 MCHC 32 % (30-34) 01/11/20 07:00 RDW 18.1 % (13.2-15.2) H 01/11/20 07:00 Plt Count 549 K/mm3 (140-440) H 01/11/20 07:00 Lymph % (Auto) 14.8 % (13.4-35.0) 01/11/20 07:00 [place] % (Auto) 9.1 % (0.0-7.3) H 01/11/20 07:00 Eos % (Auto) 2.1 % (0.0-4.3) 01/11/20 07:00 Baso % (Auto) 0.7 % (0.0-1.8) 01/11/20 07:00 Lymph # 1.8 K/mm3 (1.2-5.4) 01/11/20 07:00 [place] # 1.1 K/mm3 (0.0-0.8) H 01/11/20 07:00 Eos # 0.2 K/mm3 (0.0-0.4) 01/11/20 07:00 Baso # 0.1 K/mm3 (0.0-0.1) 01/11/20 07:00 Add Manual Diff Complete 12/25/19 03:47 Total Counted 200 12/25/19 03:47 Seg Neutrophils % 73.3 % (40.0-70.0) H 01/11/20 07:00 Seg Neuts % (Manual) 97.5 % (40.0-70.0) H 12/25/19 03:47 Band Neutrophils % 0 % 12/25/19 03:47 Lymphocytes % (Manual) 1.0 % (13.4-35.0) L 12/25/19 03:47 Reactive Lymphs % (Man) 0 % 12/25/19 03:47 Monocytes % (Manual) 1.5 % (0.0-7.3) 12/25/19 03:47 Eosinophils % (Manual) 0 % (0.0-4.3) 12/25/19 03:47 Basophils % (Manual) 0 % (0.0-1.8) 12/25/19 03:47 Metamyelocytes % 0 % 12/25/19 03:47 Myelocytes % 0 % 12/25/19 03:47 Promyelocytes % 0 % 12/25/19 03:47 Blast Cells % 0 % 12/25/19 03:47 Nucleated RBC % Not Reportable 12/25/19 03:47 Seg Neutrophils # 8.7 K/mm3 (1.8-7.7) H 01/11/20 07:00 Seg Neutrophils # Man 35.3 K/mm3 (1.8-7.7) H 12/25/19 03:47 Band Neutrophils # 0.0 K/mm3 12/25/19 03:47 Lymphocytes # (Manual) 0.4 K/mm3 (1.2-5.4) L 12/25/19 03:47 Abs React Lymphs (Man) 0.0 K/mm3 12/25/19 03:47 Monocytes # (Manual) 0.5 K/mm3 (0.0-0.8) 12/25/19 03:47 Eosinophils # (Manual) 0.0 K/mm3 (0.0-0.4) 12/25/19 03:47 Basophils # (Manual) 0.0 K/mm3 (0.0-0.1) 12/25/19 03:47 Metamyelocytes # 0.0 K/mm3 12/25/19 03:47 Myelocytes # 0.0 K/mm3 12/25/19 03:47 Promyelocytes # 0.0 K/mm3 12/25/19 03:47 Blast Cells # 0.0 K/mm3 12/25/19 03:47 Pathologist Review 12/13/19 07:48 WBC Morphology Not Reportable 12/25/19 03:47 Hypersegmented Neuts Not Reportable 12/25/19 03:47 Hyposegmented Neuts Not Reportable 12/25/19 03:47 Hypogranular Neuts Not Reportable 12/25/19 03:47 Smudge Cells Not Reportable 12/25/19 03:47 Toxic Granulation Not Reportable 12/25/19 03:47 Toxic Vacuolation Not Reportable 12/25/19 03:47 Dohle Bodies Not Reportable 12/25/19 03:47 Pelger-Huet Anomaly Not Reportable 12/25/19 03:47 Dominique Rods Not Reportable 12/25/19 03:47 Platelet Estimate Consistent w auto 12/25/19 03:47 Clumped Platelets Not Reportable 12/25/19 03:47 Plt Clumps, EDTA Not Reportable 12/25/19 03:47 Large Platelets Not Reportable 12/25/19 03:47 Giant Platelets Not Reportable 12/25/19 03:47 Platelet Satelliting Not Reportable 12/25/19 03:47 Plt Morphology Comment Not Reportable 12/25/19 03:47 RBC Morphology Not Reportable 12/25/19 03:47 Dimorphic RBCs Not Reportable 12/25/19 03:47 Polychromasia Not Reportable 12/25/19 03:47 Hypochromasia Not Reportable 12/25/19 03:47 Poikilocytosis Not Reportable 12/25/19 03:47 Anisocytosis 1+ 12/25/19 03:47 Microcytosis Not Reportable 12/25/19 03:47 Macrocytosis Not Reportable 12/25/19 03:47 Spherocytes Not Reportable 12/25/19 03:47 Pappenheimer Bodies Not Reportable 12/25/19 03:47 Sickle Cells Not Reportable 12/25/19 03:47 Target Cells Not Reportable 12/25/19 03:47 Tear Drop Cells Not Reportable 12/25/19 03:47 Ovalocytes Not Reportable 12/25/19 03:47 Helmet Cells Not Reportable 12/25/19 03:47 Frias-Graball Bodies Not Reportable 12/25/19 03:47 [place] Rings Not Reportable 12/25/19 03:47 [place] Cells Not Reportable 12/25/19 03:47 Bite Cells Not Reportable 12/25/19 03:47 Crenated Cell Not Reportable 12/25/19 03:47 Elliptocytes Not Reportable 12/25/19 03:47 Acanthocytes (Spur) Not Reportable 12/25/19 03:47 Rouleaux Not Reportable 12/25/19 03:47 Hemoglobin C Crystals Not Reportable 12/25/19 03:47 Schistocytes Not Reportable 12/25/19 03:47 Malaria parasites Not Reportable 12/25/19 03:47 Gregg Bodies Not Reportable 12/25/19 03:47 Hem Pathologist Commnt No 12/25/19 03:47 PT 17.0 Sec. (12.2-14.9) H 11/23/19 03:47 INR 1.36 (0.87-1.13) H 11/23/19 03:47 APTT 128.2 Sec. (24.2-36.6) H* 11/23/19 03:47 Heparin Anti-Xa Level 0.31 U.I./ml (0.3-0.7) 11/23/19 09:03 ABG pH 7.429 pH Units (7.350-7.450) 01/09/20 08:51 ABG pCO2 39.1 mm Hg 01/09/20 08:51 ABG pO2 94.3 mm Hg (80.0-90.0) H 01/09/20 08:51 ABG HCO3 25.3 mmol/L (20.0-26.0) 01/09/20 08:51 ABG O2 Saturation 97.4 % (95.0-99.0) 01/09/20 08:51 ABG O2 Content 12.9 (0.0-44) 01/09/20 08:51 ABG Base Excess 1.0 mmol/L (-2.0-3.0) 01/09/20 08:51 ABG Hemoglobin 9.5 gm/dl (12.0-16.0) L 01/09/20 08:51 ABG Carboxyhemoglobin 1.3 % (0.0-5.0) 01/09/20 08:51 ABG Methemoglobin 0.4 % (0.0-1.5) 01/09/20 08:51 Oxyhemoglobin 95.7 % (95.0-99.0) 01/09/20 08:51 FiO2 35 % 01/09/20 08:51 Sodium 134 mmol/L (137-145) L 01/11/20 07:00 Potassium 4.1 mmol/L (3.6-5.0) 01/11/20 07:00 Chloride 97.7 mmol/L (98-107) L 01/11/20 07:00 Carbon Dioxide 21 mmol/L (22-30) L 01/11/20 07:00 Anion Gap 19 mmol/L 01/11/20 07:00 BUN 38 mg/dL (7-17) H 01/11/20 07:00 Creatinine 0.5 mg/dL (0.7-1.2) L 01/11/20 07:00 Estimated GFR > 60 ml/min 01/11/20 07:00 BUN/Creatinine Ratio 76 % 01/11/20 07:00 Glucose 168 mg/dL (65-100) H 01/11/20 07:00 POC Glucose 128 (70-105) H 01/12/20 05:24 Lactic Acid 1.80 mmol/L (0.7-2.0) 11/25/19 05:05 Calcium 10.5 mg/dL (8.4-10.2) H 01/11/20 07:00 Ionized Calcium 4.5 mg/dL (4.8-5.6) L 11/23/19 06:32 Phosphorus 4.20 mg/dL (2.5-4.5) D 11/28/19 08:59 Magnesium 2.30 mg/dL (1.7-2.3) 11/29/19 13:41 Total Bilirubin 0.40 mg/dL (0.1-1.2) 12/13/19 07:48 AST 27 units/L (5-40) 12/13/19 07:48 ALT 26 units/L (7-56) 12/13/19 07:48 Alkaline Phosphatase 316 units/L (35-129) H 12/13/19 07:48 Ammonia 42.0 umol/L (25-60) 11/29/19 13:41 Total Creatine Kinase 139 units/L (30-135) H 11/22/19 23:27 CK-MB (CK-2) 8.3 ng/mL (0.0-4.0) H 11/22/19 23:27 CK-MB (CK-2) Rel Index 5.9 (0-4) H 11/22/19 23:27 Troponin T < 0.010 ng/mL (0.00-0.029) 11/22/19 23:27 Total Protein 6.8 g/dL (6.3-8.2) 12/13/19 07:48 Albumin 2.4 g/dL (3.9-5) L 12/13/19 07:48 Albumin/Globulin Ratio 0.5 % 12/13/19 07:48 Lipase 18 units/L (13-60) 11/23/19 00:34 Procalcitonin 1.09 ng/mL (<0.15) 11/23/19 04:53 Urine Color Yellow (Yellow) 12/16/19 Unknown Urine Turbidity Slightly-cloudy (Clear) 12/16/19 Unknown Urine pH 5.0 (5.0-7.0) 12/16/19 Unknown Ur Specific [place] 1.018 (1.003-1.030) 12/16/19 Unknown Urine Protein 30 mg/dl mg/dL (Negative) 12/16/19 Unknown Urine Glucose (UA) Neg mg/dL (Negative) 12/16/19 Unknown Urine Ketones Neg mg/dL (Negative) 12/16/19 Unknown Urine Blood Sm (Negative) 12/16/19 Unknown Urine Nitrite Neg (Negative) 12/16/19 Unknown Urine Bilirubin Neg (Negative) 12/16/19 Unknown Urine Urobilinogen < 2.0 mg/dL (<2.0) 12/16/19 Unknown Ur Leukocyte Esterase Neg (Negative) 12/16/19 Unknown Urine WBC (Auto) 6.0 /HPF (0.0-6.0) 12/16/19 Unknown Urine RBC (Auto) 9.0 /HPF (0.0-6.0) 12/16/19 Unknown U Epithel Cells (Auto) < 1.0 /HPF (0-13.0) 12/16/19 Unknown Urine Bacteria (Auto) 2+ /HPF (Negative) 11/22/19 23:17 Hyaline Casts 3 /LPF 12/16/19 Unknown Granular Casts 3 /LPF 12/16/19 Unknown Urine Mucus Few /HPF 12/16/19 Unknown Vancomycin Trough 33.8 ug/mL (5.0-20.0) H 12/21/19 08:56 Random Vancomycin 16.2 ug/mL (0-40.0) 12/24/19 04:31 Salicylates < 0.3 mg/dL (2.8-20.0) L 11/22/19 23:27 Urine Opiates Screen Presumptive negative 11/22/19 23:17 Urine Methadone Screen Presumptive negative 11/22/19 23:17 Acetaminophen < 5.0 ug/mL (10.0-30.0) L 11/22/19 23:27 Ur Barbiturates Screen Presumptive negative 11/22/19 23:17 Ur Phencyclidine Scrn Presumptive negative 11/22/19 23:17 Ur Amphetamines Screen Presumptive negative 11/22/19 23:17 U Benzodiazepines Scrn Presumptive negative 11/22/19 23:17 Urine Cocaine Screen Presumptive negative 11/22/19 23:17 U Marijuana (THC) Screen Presumptive negative 11/22/19 23:17 Drugs of Abuse Note Disclamer 11/22/19 23:17 Plasma/Serum Alcohol 0.08 % (0-0.07) H 11/22/19 23:27 Hepatitis A IgM Ab Non-reactive (NonReactive) 11/23/19 01:19 Hep Bs Antigen Non-reactive (Negative) 11/23/19 01:19 Hep B Core IgM Ab Non-reactive (NonReactive) 11/23/19 01:19 Hepatitis C Antibody Non-reactive (NonReactive) 11/23/19 01:19 Blood Type O POSITIVE 12/21/19 14:54 Antibody Screen Negative 12/21/19 14:54 Crossmatch See Detail 12/21/19 14:54 - Diagnostic Impressions Diagnostic Impressions: Echocardiogram 11/23/19 03:58 Transthoracic Echocardiogram Indication: Cardiac arrest BP: 131/89 HR: 115 Conclusions *The study quality is technically difficult. *Global left ventricular wall motion and contractility are within normal limits. *The estimated ejection fraction is 55-60%. *Abnormal left ventricular diastolic filling is observed, consistent with impaired relaxation. *There is no pericardial effusion. Findings Procedure Info: The study quality is technically difficult. The study was technically limited due to the patient's inability to lay in the left lateral decubitus position. Left Ventricle: The left ventricular chamber size is normal. There is no left ventricular hypertrophy. Global left ventricular wall motion and contractility are within normal limits. Global left ventricular systolic function is normal. The estimated ejection fraction is 55-60%. Abnormal left ventricular diastolic filling is observed, consistent with impaired relaxation. Left Atrium: The left atrial chamber size is normal. Aortic Valve: The aortic valve leaflets are mildly thickened. Mitral Valve: The mitral valve leaflets are mildly thickened. There is no evidence of mitral regurgitation. Tricuspid Valve: The tricuspid valve leaflets are normal. There is trace tricuspid regurgitation. The right ventricular systolic pressure is calculated at 33 mmHg. Pulmonic Valve: The pulmonic valve appears normal. Pericardium: The pericardium appears normal. There is no pericardial effusion. Aorta: The aorta appears normal. Venous: The inferior vena cava appears normal in size. Measurements Chambers 2D Name Value Normal Range IVSd (2D) 0.94 cm (0.6 - 1.1) LVPWd (2D) 0.81 cm (0.6 - 1.1) LVIDd (2D) 3.6 cm (3.7 - 5.6) LVIDs (2D) 2.27 cm (2 - 3.8) LV FS (2D) 36.93 % - EF Teichholz (2D) 67.76 % - Ao root diameter (2D) 3.03 cm (2 - 3.7) Volumes/Mass Name Value Normal Range LA ESV SP 4CH (A/L) 16.89 ml - LA ESV SP 4CH (MOD) 15.52 ml - Diastolic/Systolic Function Name Value Normal Range MV E-wave Vmax 0.55 m/sec - MV deceleration time 200.89 msec - MV A-wave Vmax 0.68 m/sec - MV E:A ratio 0.82 ratio - Aortic Valve Name Value Normal Range AV Vmax 1.1 m/sec - AV VTI 15.9 cm - AV peak gradient 4.86 mmHg - AV mean gradient 2.59 mmHg - LVOT diameter 2 cm - LVOT Vmax 1.03 m/sec - LVOT VTI 15.87 cm - LVOT peak gradient 4.24 mmHg - LVOT mean gradient 2.41 mmHg - SV LVOT 49.77 ml - JOSÉ MIGUEL (continuity Vmax) 2.93 cm2 - JOSÉ MIGUEL (continuity VTI) 3.13 cm2 - Tricuspid Valve Name Value Normal Range TR Vmax 2.74 m/sec - TR peak gradient 303 mmHg - RAP 3 mmHg - RVSP 33 mmHg - IVC diameter 1.77 cm (1.2 - 2.3) Pulmonic Valve/Qp:Qs Name Value Normal Range PV Vmax 0.77 m/sec - PV peak gradient 2.4 mmHg - PV acceleration time 114.18 msec - Echocardiogram Limited Views 12/17/19 14:53 Transthoracic Echocardiogram Indication: R/O Vegetations BP: 144/83 HR: 133 Conclusions *Global left ventricular systolic function is mildly decreased. *The estimated ejection fraction is 45-50%. *A trivial pericardial effusion is visualized. Findings Left Ventricle: The left ventricular chamber size is normal. Global left ventricular systolic function is mildly decreased. The estimated ejection fraction is 45-50%. Left Atrium: The left atrial chamber size is normal. Right Ventricle: The right ventricular cavity size is normal. Right Atrium: The right atrial cavity size is normal. Aortic Valve: The aortic valve is not well visualized. There is no evidence of aortic regurgitation. Mitral Valve: The mitral valve leaflets are mildly thickened. There is trace of mitral regurgitation. Tricuspid Valve: The tricuspid valve leaflets are mildly thickened. There is trace tricuspid regurgitation. The right ventricular systolic pressure is calculated at 29 mmHg. Pulmonic Valve: The pulmonic valve is not well visualized. There is no evidence of pulmonic regurgitation. Pericardium: A trivial pericardial effusion is visualized. Aorta: There is no dilatation of the ascending aorta. There is no dilatation of the aortic root. Venous: The inferior vena cava appears normal in size. There is a greater than 50% respiratory change in the inferior vena cava dimension. Measurements Chambers 2D Name Value Normal Range IVSd (2D) 0.83 cm (0.6 - 1.1) LVPWd (2D) 0.98 cm (0.6 - 1.1) LVIDd (2D) 3.71 cm (3.7 - 5.6) LVIDs (2D) 2.93 cm (2 - 3.8) LV FS (2D) 21.12 % - EF Teichholz (2D) 43.71 % - Ao root diameter (2D) 3.02 cm (2 - 3.7) Volumes/Mass Name Value Normal Range LA ESV SP 4CH (A/L) 36.8 ml - LA ESV SP 2CH (A/L) 45.89 ml - LA ESV BP (A/L) 42.35 ml - LA ESV BP (A/L) index 26.63 ml/m2 - LA ESV SP 4CH (MOD) 34.42 ml - LA ESV SP 2CH (MOD) 44.21 ml - LA ESV BP (MOD) 39.82 ml - LA ESV BP (MOD) index 25.05 ml/m2 - Aortic Valve Name Value Normal Range LVOT diameter 1.63 cm - Tricuspid Valve Name Value Normal Range TR Vmax 2.56 m/sec - TR peak gradient 26 mmHg - RAP 3 mmHg - RVSP 29 mmHg - IVC diameter 1.83 cm (1.2 - 2.3) [place]/IV: Voiding Method Incontinent IV Catheter Type [Forearm] Peripheral IV IV Catheter Type [Left Forearm Peripheral IV ] IV Catheter Type [Right Peripheral IV Antecubital] IV Catheter Type [Right Hand] INT / Saline Lock IV Catheter Type [Right Wrist] Peripheral IV IV Catheter Type [Left Wrist] Peripheral IV IV Catheter Type [Left Peripheral IV Antecubital] IV Catheter Type [Right INT / Saline Lock Forearm] IV Catheter Type [Left Hand] Peripheral IV Active Medications - Current Medications Current Medications: Generic Name Dose Route Start Last Admin Trade Name Freq PRN Reason Stop Dose Admin Acetaminophen 650 mg 12/06/19 10:25 01/09/20 22:17 Tylenol FEEDTUBE 650 mg Q6H PRN Administration TEMP >/=100.3 Lipase/Protease/Amylase 1 each 11/23/19 11:50 Pancreazalayna Crenshaw 10,500 Unit FEEDTUBE PRN PRN Use w/ sod bicarb for FT Fentanyl 50 mcg 12/05/19 02:10 12/12/19 20:04 Sublimaze IV 50 mcg Q10MIN PRN Administration ANALGESIA Glycopyrrolate 2 mg 12/31/19 20:00 01/11/20 20:37 Robinul PO 2 mg TID LUCHO Administration Hydralazine HCl 10 mg 11/24/19 00:45 12/18/19 13:25 Apresoline IV 10 mg Q6H PRN Administration SBP > 160 Hydroxyzine Pamoate 25 mg 12/06/19 10:00 01/11/20 21:44 Vistaril PO 25 mg BID LUCHO Administration Lansoprazole 30 mg 11/27/19 10:00 01/11/20 10:30 Prevacid Solutab FEEDTUBE 30 mg QDAY LUCHO Administration Levetiracetam 500 mg 11/29/19 10:00 01/11/20 21:44 Keppra PO 500 mg BID LUCHO Administration Mirtazapine 30 mg 12/06/19 10:00 01/11/20 10:30 Remeron PO 30 mg DAILY LUCHO Administration Morphine Sulfate 2 mg 12/12/19 18:40 12/24/19 23:04 Morphine IV 2 mg Q4H PRN Administration Pain, Moderate (4-6) Ondansetron HCl 4 mg 12/10/19 07:53 01/06/20 10:53 Zofran IV 4 mg Q4H PRN Administration Nausea And Vomiting Quetiapine Fumarate 100 mg 01/09/20 21:41 01/11/20 21:44 Seroquel FEEDTUBE 100 mg QHS LUCHO Administration Senna/Docusate Sodium 2 tab 12/24/19 07:00 Senokot S PO BID PRN CONSTIPATION Sertraline HCl 25 mg 01/01/20 10:00 01/11/20 10:30 Zoloft PO 25 mg QDAY LUCHO Administration Simple Syrup 15 ml 11/23/19 11:50 Simple Syrup FEEDTUBE PRN PRN Hypoglycemia BG<70 Simple Syrup 30 ml 11/23/19 11:50 Simple Syrup FEEDTUBE PRN PRN Hypoglycemia Sodium Bicarbonate 325 mg 11/23/19 11:50 Sodium Bicarbonate FEEDTUBE PRN PRN For Clogged Feeding Tube Tamsulosin HCl 0.4 mg 12/14/19 13:00 01/11/20 10:30 Flomax PO 0.4 mg QDAY LUCHO Administration Nutrition/Malnutrition Assess - Dietary Evaluation Nutrition/Malnutrition Findings: Nutrition Notes Start: 11/23/19 11:29 Freq: Status: Active Protocol: Document 01/11/20 09:15 LM (Rec: 01/11/20 09:39 LM -[email or web address]) Nutrition Notes Initial or Follow up Reassessment Current Diagnosis Hypertension Other Pertinent Diagnosis Cardaic arrest, ETOH dependence, UTI Current Diet Vital AF 1.2 at 50 ml/hr Labs/Tests Na 134 Pertinent Medications Reviewed Height 5 ft 6 in Weight 52.7 kg [place] Body Weight (kg) 59.09 BMI 18.7 Weight change and time frame 6% wt loss in 9 days Subjective/Other Information Per RN notes pt is tolerating Vital at goal. Pt has been extubated. Pt with PEG. Percent of energy/protein needs met: 100%/100% Burn Absent Trauma Absent GI Symptoms None Current % PO Negligible Minimum of two criteria No Interpretation of Weight Loss (severe) >2% in 1 week Muscle Mass Mild Depletion (non-severe) #2 Nutrition Diagnosis Malnutrition Etiology chronic illness As Evidenced by Signs and Symptoms 6% wt loss in 9 days, temporal wasting #1 Nutrition Diagnosis Inadequate oral intake Diagnosis Progress(for reassessment Continues documentation) Is patient on ventilator? No Is Patient Ambulatory and/or Out of Bed No REE-([facility]-confined to bed) 1377.048 Kcal/Kg value to use for calculation 31 Approximate Energy Requirements Using 1634 kcal/Kg Calculation Used for Recommendations [facility] or Additional Notes Protein: 64-80g (1.2-1.5g/kg) Fluid: 1 ml/kcal Nutrition Intervention Change Diet Order: Continue TF Nutrition Support: Change to Jevity 1.2 at 55ml/ hr Flush 50ml q6h for hyponatremia Flush 90ml q4h once resolved Kcal 1,584 Protein (gm) 73 Fluid (mL) 1,065 Goal #1 TF tolerance Goal #2 Meet at least 80% of energy and protein needs via TF Anticipated Discharge Needs: TF Follow-Up By: 01/14/20 Additional Comments F/U for new TF/tolerance
[2020-01-12] MEDS: levETIRAcetam 500 MG/5 ML ORAL LIQD PO SCH ×2 (09:17→21:10)
[2020-01-12] MEDS: LANSOPRAZOLE 30 MG SOLUTAB FEEDTUBE SCH (09:18)
[2020-01-12] MEDS: GLYCOPYRROLATE 1 MG TAB PO SCH ×3 (09:18→21:10)
[2020-01-12] MEDS: MIRTAZAPINE 30 MG TAB PO SCH (09:18)
[2020-01-12] MEDS: TAMSULOSIN 0.4 MG CAP PO SCH (09:18)
[2020-01-12] MEDS: SERTRALINE 50 MG TAB PO SCH (09:18)
[2020-01-12] MEDS: hydrOXYzine PAMOATE 25 MG CAP PO SCH ×2 (09:19→21:10)
--- NOTE | 2020-01-12 14:04 | Progress Note ---
Assessment and Plan Acute cardiopulmonary arrest with ROSC Acute hypoxemic respiratory failure on MVS MRSA Bacteremia MRSA pneumonia Acute bebrfvsoq-svuqd-cstsjc encephalopathy Metabolic acidosis/alcoholic acidosis/Lactic acidosis( resolved) Ischemic hepatitis Leucocytosis - persistent Erythrocytosis Tobacco use disorder Alcohol use Disorder -CBC, BMP in am -Trach care, airway clearance, secretion management( continue scopolamine patch and Robinul) -CXR, ABG prn -Weaning trials as tolerated- ATP then PMV and posible capping as tolerated by secretions -Continue contact isolation for MRSA -Trend leukocytosis, and temperature curve -Continue all care as documented below. -PT/OT to evaluate and treat -Continue aspiration precautions, HOB>40 -Continue Stress ulcer prophylaxis -Continue enteric nutritional support at goal rate. -Continue to monitor glycemic control, with target blood glucose 140-180 mg/dL while critically ill. -Avoid hypoglycemia - Continue to wean supplemental oxygen for target O2 sat's > 90% -Continue thiamine, multivitamin and electrolyte replacement -Continue to avoid nephrotoxins, adjust all medications for GFR and CrCL - Continue bronchodilators with pulmonary hygiene - Continue prn analgesia per CPOT score - Continue to maintain of sleep-wake cycle, avoid delirium - Continue mobility protocol and skin assessment per protocol for pressure ulcer prevention - Continue to monitor for clinical seizures - continue other care per attending / other consultants CONDITION: FAIR PROGNOSIS: GUARDED CODE STATUS: DNAR Subjective Date of service: 01/12/20 Principal diagnosis: Ac cardiopulmonary arrest; Ac hypoxemic resp failure; Acute encephalopathy Interval history: Patient is seen today for: Acute cardiopulmonary arrest with ROSC; Acute hypo xemic respiratory failure; Acute metabolic-toxic encephalopathy; Ischemic hepatitis; Leucocytosis with lactic acidosis; Tobacco use disorder; Alcohol use Disorder; s/p tracheostomy; s/p PEG Seen and examined at bedside; 24hour events reviewed; nursing and respiratory care staff consulted; no adverse overnight events reported to me; resting peacefully in bed; tolerated ATP yesterday for about 24 hours with acceptable ABG. No fevers, no vomiting, continues to tolerate tube feedings Awake and alert, responsive Objective Vital Signs - 12hr 01/12/20 01/12/20 01/12/20 03:00 03:39 04:00 Temperature 98.6 F Pulse Rate 108 H 114 H Pulse Rate [ 113 H From Monitor] Respiratory 25 H 29 H Rate Blood Pressure 113/73 129/83 O2 Sat by Pulse 99 100 Oximetry 01/12/20 01/12/20 01/12/20 05:00 06:00 07:00 Temperature Pulse Rate 115 H 110 H 115 H Pulse Rate [ From Monitor] Respiratory 25 H 26 H 28 H Rate Blood Pressure 125/83 119/76 116/77 O2 Sat by Pulse 100 98 99 Oximetry 01/12/20 01/12/20 01/12/20 08:00 09:00 10:00 Temperature 97.7 F Pulse Rate 112 H 113 H 113 H Pulse Rate [ 121 H From Monitor] Respiratory 30 H 21 29 H Rate Blood Pressure 111/74 114/78 149/100 O2 Sat by Pulse 99 100 100 Oximetry 01/12/20 11:00 Temperature Pulse Rate 120 H Pulse Rate [ From Monitor] Respiratory 26 H Rate Blood Pressure 131/87 O2 Sat by Pulse 100 Oximetry Constitutional: no acute distress, other (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, with midline tracheostomy, ATP with copious thin secretions) Eyes: non-icteric ENT: oropharynx moist, other (s/p trach) Neck: supple, no lymphadenopathy, no JVD Effort: normal Ascultation: Bilateral: diminished breath sounds, rhonchi Percussion: Bilateral: not dull Cardiovascular: regular rate and rhythm (tachycardia), other (S1,S2) Gastrointestinal: normoactive bowel sounds, soft, non-tender, non-distended Integumentary: normal Extremities: no cyanosis, no edema, pulses normal, no ischemia or petechiae Neurologic: other (awake, following simple commands) Psychiatric: other (Psychiatric: Unable to assess re: AMS) CBC and BMP: 01/17/20 05:32 01/11/20 07:00 ABG, PT/INR, D-dimer: ABG ABG pH 7.429 pH Units (7.350-7.450) 01/09/20 08:51 ABG pCO2 39.1 mm Hg 01/09/20 08:51 ABG pO2 94.3 mm Hg (80.0-90.0) H 01/09/20 08:51 ABG O2 Saturation 97.4 % (95.0-99.0) 01/09/20 08:51 PT/INR, D-dimer PT 17.0 Sec. (12.2-14.9) H 11/23/19 03:47 INR 1.36 (0.87-1.13) H 11/23/19 03:47 Abnormal lab findings: Abnormal Labs 11/22/19 11/22/19 11/22/19 23:17 23:18 23:27 WBC 21.2 H RBC 3.59 L Hgb 9.8 L Hct MCH 27 L RDW 18.6 H Plt Count 454 H Lymph % (Auto) [place] % (Auto) [place] # Baso # Seg Neutrophils % Seg Neuts % (Manual) 86.0 H Lymphocytes % (Manual) 9.0 L Monocytes % (Manual) Seg Neutrophils # Seg Neutrophils # Man 18.2 H Lymphocytes # (Manual) Monocytes # (Manual) 1.1 H Eosinophils # (Manual) Basophils # (Manual) PT INR APTT ABG pH ABG pO2 ABG HCO3 ABG O2 Saturation ABG Base Excess ABG Hemoglobin Oxyhemoglobin Sodium Potassium Chloride Carbon Dioxide BUN Creatinine Glucose POC Glucose 53 L Lactic Acid Calcium Ionized Calcium Phosphorus Magnesium Total Bilirubin AST ALT Alkaline Phosphatase Ammonia Total Creatine Kinase CK-MB (CK-2) CK-MB (CK-2) Rel Index Total Protein Albumin Urine WBC (Auto) 40.0 H Vancomycin Trough Salicylates Acetaminophen Plasma/Serum Alcohol Crossmatch 11/22/19 11/22/19 11/22/19 23:27 23:27 23:27 WBC RBC Hgb Hct MCH RDW Plt Count Lymph % (Auto) [place] % (Auto) [place] # Baso # Seg Neutrophils % Seg Neuts % (Manual) Lymphocytes % (Manual) Monocytes % (Manual) Seg Neutrophils # Seg Neutrophils # Man Lymphocytes # (Manual) Monocytes # (Manual) Eosinophils # (Manual) Basophils # (Manual) PT INR APTT ABG pH ABG pO2 ABG HCO3 ABG O2 Saturation ABG Base Excess ABG Hemoglobin Oxyhemoglobin Sodium Potassium 2.4 L* Chloride 85.1 L Carbon Dioxide 19 L BUN Creatinine 0.5 L Glucose 261 H POC Glucose Lactic Acid Calcium Ionized Calcium Phosphorus Magnesium Total Bilirubin AST 609 H ALT 152 H Alkaline Phosphatase 160 H Ammonia 117.0 H Total Creatine Kinase 139 H CK-MB (CK-2) 8.3 H CK-MB (CK-2) Rel Index 5.9 H Total Protein Albumin 3.6 L Urine WBC (Auto) Vancomycin Trough Salicylates < 0.3 L Acetaminophen Plasma/Serum Alcohol Crossmatch 11/22/19 11/22/19 11/23/19 23:27 23:27 01:10 WBC RBC Hgb Hct MCH RDW Plt Count Lymph % (Auto) [place] % (Auto) [place] # Baso # Seg Neutrophils % Seg Neuts % (Manual) Lymphocytes % (Manual) Monocytes % (Manual) Seg Neutrophils # Seg Neutrophils # Man Lymphocytes # (Manual) Monocytes # (Manual) Eosinophils # (Manual) Basophils # (Manual) PT INR APTT ABG pH 7.273 L ABG pO2 209.7 H ABG HCO3 ABG O2 Saturation 99.2 H ABG Base Excess -3.9 L ABG Hemoglobin 10.6 L Oxyhemoglobin 93.9 L Sodium Potassium Chloride Carbon Dioxide BUN Creatinine Glucose POC Glucose Lactic Acid Calcium Ionized Calcium Phosphorus Magnesium Total Bilirubin AST ALT Alkaline Phosphatase Ammonia Total Creatine Kinase CK-MB (CK-2) CK-MB (CK-2) Rel Index Total Protein Albumin Urine WBC (Auto) Vancomycin Trough Salicylates Acetaminophen < 5.0 L Plasma/Serum Alcohol 0.08 H Crossmatch 11/23/19 11/23/19 11/23/19 01:19 01:19 03:47 WBC RBC Hgb Hct MCH RDW Plt Count Lymph % (Auto) [place] % (Auto) [place] # Baso # Seg Neutrophils % Seg Neuts % (Manual) Lymphocytes % (Manual) Monocytes % (Manual) Seg Neutrophils # Seg Neutrophils # Man Lymphocytes # (Manual) Monocytes # (Manual) Eosinophils # (Manual) Basophils # (Manual) PT 16.3 H INR 1.29 H APTT ABG pH ABG pO2 ABG HCO3 ABG O2 Saturation ABG Base Excess ABG Hemoglobin Oxyhemoglobin Sodium Potassium Chloride Carbon Dioxide BUN Creatinine Glucose POC Glucose Lactic Acid 2.10 H* 5.00 H* Calcium Ionized Calcium Phosphorus Magnesium Total Bilirubin AST ALT Alkaline Phosphatase Ammonia Total Creatine Kinase CK-MB (CK-2) CK-MB (CK-2) Rel Index Total Protein Albumin Urine WBC (Auto) Vancomycin Trough Salicylates Acetaminophen Plasma/Serum Alcohol Crossmatch 11/23/19 11/23/19 11/23/19 03:47 03:47 04:53 WBC RBC Hgb 9.4 L Hct MCH RDW Plt Count Lymph % (Auto) [place] % (Auto) [place] # Baso # Seg Neutrophils % Seg Neuts % (Manual) Lymphocytes % (Manual) Monocytes % (Manual) Seg Neutrophils # Seg Neutrophils # Man Lymphocytes # (Manual) Monocytes # (Manual) Eosinophils # (Manual) Basophils # (Manual) PT 17.0 H INR 1.36 H APTT 128.2 H* ABG pH ABG pO2 ABG HCO3 ABG O2 Saturation ABG Base Excess ABG Hemoglobin Oxyhemoglobin Sodium Potassium Chloride Carbon Dioxide 18 L BUN Creatinine 0.5 L Glucose 105 H POC Glucose Lactic Acid Calcium 8.3 L Ionized Calcium Phosphorus 2.40 L Magnesium Total Bilirubin 1.30 H AST 761 H ALT 158 H Alkaline Phosphatase 143 H Ammonia Total Creatine Kinase CK-MB (CK-2) CK-MB (CK-2) Rel Index Total Protein Albumin 2.8 L Urine WBC (Auto) Vancomycin Trough Salicylates Acetaminophen Plasma/Serum Alcohol Crossmatch 11/23/19 11/23/19 11/23/19 05:12 06:32 06:32 WBC 16.8 H RBC 3.31 L Hgb 8.9 L Hct 28.7 L MCH 27 L RDW 18.6 H Plt Count Lymph % (Auto) [place] % (Auto) [place] # Baso # Seg Neutrophils % Seg Neuts % (Manual) 94.0 H Lymphocytes % (Manual) 1.0 L Monocytes % (Manual) Seg Neutrophils # Seg Neutrophils # Man 15.8 H Lymphocytes # (Manual) 0.2 L Monocytes # (Manual) Eosinophils # (Manual) Basophils # (Manual) PT INR APTT ABG pH ABG pO2 ABG HCO3 ABG O2 Saturation ABG Base Excess -3.2 L ABG Hemoglobin 9.0 L Oxyhemoglobin 93.6 L Sodium Potassium Chloride Carbon Dioxide BUN Creatinine Glucose POC Glucose Lactic Acid Calcium Ionized Calcium 4.5 L Phosphorus Magnesium Total Bilirubin AST ALT Alkaline Phosphatase Ammonia Total Creatine Kinase CK-MB (CK-2) CK-MB (CK-2) Rel Index Total Protein Albumin Urine WBC (Auto) Vancomycin Trough Salicylates Acetaminophen Plasma/Serum Alcohol Crossmatch 11/23/19 11/24/19 11/24/19 06:32 04:35 04:35 WBC RBC Hgb Hct MCH RDW Plt Count Lymph % (Auto) [place] % (Auto) [place] # Baso # Seg Neutrophils % Seg Neuts % (Manual) Lymphocytes % (Manual) Monocytes % (Manual) Seg Neutrophils # Seg Neutrophils # Man Lymphocytes # (Manual) Monocytes # (Manual) Eosinophils # (Manual) Basophils # (Manual) PT INR APTT ABG pH ABG pO2 ABG HCO3 ABG O2 Saturation ABG Base Excess ABG Hemoglobin Oxyhemoglobin Sodium Potassium Chloride Carbon Dioxide BUN Creatinine Glucose POC Glucose Lactic Acid 3.30 H* Calcium Ionized Calcium Phosphorus Magnesium 1.40 L Total Bilirubin AST ALT Alkaline Phosphatase Ammonia 98.0 H Total Creatine Kinase CK-MB (CK-2) CK-MB (CK-2) Rel Index Total Protein Albumin Urine WBC (Auto) Vancomycin Trough Salicylates Acetaminophen Plasma/Serum Alcohol Crossmatch 11/24/19 11/25/19 11/25/19 05:22 04:34 05:05 WBC 17.3 H RBC 2.88 L Hgb 7.8 L Hct 24.6 L MCH 27 L RDW 18.5 H Plt Count Lymph % (Auto) 7.7 L [place] % (Auto) 9.7 H [place] # 1.7 H Baso # Seg Neutrophils % 82.2 H Seg Neuts % (Manual) Lymphocytes % (Manual) Monocytes % (Manual) Seg Neutrophils # 14.2 H Seg Neutrophils # Man Lymphocytes # (Manual) Monocytes # (Manual) Eosinophils # (Manual) Basophils # (Manual) PT INR APTT ABG pH 7.475 H ABG pO2 ABG HCO3 29.4 H 32.3 H ABG O2 Saturation ABG Base Excess 5.4 H 6.9 H ABG Hemoglobin 9.0 L 10.6 L Oxyhemoglobin 94.3 L Sodium Potassium Chloride Carbon Dioxide BUN Creatinine Glucose POC Glucose Lactic Acid Calcium Ionized Calcium Phosphorus Magnesium Total Bilirubin AST ALT Alkaline Phosphatase Ammonia Total Creatine Kinase CK-MB (CK-2) CK-MB (CK-2) Rel Index Total Protein Albumin Urine WBC (Auto) Vancomycin Trough Salicylates Acetaminophen Plasma/Serum Alcohol Crossmatch 11/25/19 11/25/19 11/26/19 05:05 22:46 03:31 WBC RBC Hgb Hct MCH RDW Plt Count Lymph % (Auto) [place] % (Auto) [place] # Baso # Seg Neutrophils % Seg Neuts % (Manual) Lymphocytes % (Manual) Monocytes % (Manual) Seg Neutrophils # Seg Neutrophils # Man Lymphocytes # (Manual) Monocytes # (Manual) Eosinophils # (Manual) Basophils # (Manual) PT INR APTT ABG pH 7.459 H ABG pO2 ABG HCO3 34.2 H ABG O2 Saturation ABG Base Excess 9.4 H ABG Hemoglobin 7.6 L Oxyhemoglobin 94.8 L Sodium 152 H D 147 H Potassium 2.3 L* D 2.8 L* D Chloride 107.8 H Carbon Dioxide 31 H D 33 H BUN Creatinine 0.6 L 0.6 L Glucose 148 H 177 H POC Glucose Lactic Acid Calcium Ionized Calcium Phosphorus Magnesium Total Bilirubin AST 105 H ALT 71 H Alkaline Phosphatase 155 H Ammonia Total Creatine Kinase CK-MB (CK-2) CK-MB (CK-2) Rel Index Total Protein 5.2 L D Albumin 2.9 L Urine WBC (Auto) Vancomycin Trough Salicylates Acetaminophen Plasma/Serum Alcohol Crossmatch 11/26/19 11/26/19 11/27/19 08:24 08:24 04:20 WBC 12.0 H RBC 3.00 L Hgb 8.0 L 9.3 L Hct 25.9 L 29.7 L MCH 27 L RDW 18.5 H Plt Count Lymph % (Auto) [place] % (Auto) [place] # Baso # Seg Neutrophils % Seg Neuts % (Manual) 89.0 H Lymphocytes % (Manual) 4.0 L Monocytes % (Manual) Seg Neutrophils # Seg Neutrophils # Man 10.7 H Lymphocytes # (Manual) 0.5 L Monocytes # (Manual) Eosinophils # (Manual) Basophils # (Manual) PT INR APTT ABG pH ABG pO2 ABG HCO3 ABG O2 Saturation ABG Base Excess ABG Hemoglobin Oxyhemoglobin Sodium 146 H Potassium 3.4 L D Chloride Carbon Dioxide BUN Creatinine 0.5 L Glucose 165 H POC Glucose Lactic Acid Calcium Ionized Calcium Phosphorus Magnesium Total Bilirubin AST 57 H ALT Alkaline Phosphatase 166 H Ammonia Total Creatine Kinase CK-MB (CK-2) CK-MB (CK-2) Rel Index Total Protein Albumin 2.9 L Urine WBC (Auto) Vancomycin Trough Salicylates Acetaminophen Plasma/Serum Alcohol Crossmatch 11/27/19 11/27/19 11/27/19 04:28 04:28 04:42 WBC RBC Hgb Hct MCH RDW Plt Count Lymph % (Auto) [place] % (Auto) [place] # Baso # Seg Neutrophils % Seg Neuts % (Manual) Lymphocytes % (Manual) Monocytes % (Manual) Seg Neutrophils # Seg Neutrophils # Man Lymphocytes # (Manual) Monocytes # (Manual) Eosinophils # (Manual) Basophils # (Manual) PT INR APTT ABG pH 7.470 H ABG pO2 74.0 L ABG HCO3 33.8 H ABG O2 Saturation ABG Base Excess 9.1 H ABG Hemoglobin 8.7 L Oxyhemoglobin 94.7 L Sodium 146 H Potassium 2.9 L* Chloride Carbon Dioxide BUN 25 H Creatinine Glucose 213 H POC Glucose Lactic Acid Calcium Ionized Calcium Phosphorus 1.00 L Magnesium Total Bilirubin AST ALT Alkaline Phosphatase Ammonia Total Creatine Kinase CK-MB (CK-2) CK-MB (CK-2) Rel Index Total Protein Albumin Urine WBC (Auto) Vancomycin Trough Salicylates Acetaminophen Plasma/Serum Alcohol Crossmatch 11/27/19 11/27/19 11/27/19 05:37 12:20 15:46 WBC RBC Hgb Hct MCH RDW Plt Count Lymph % (Auto) [place] % (Auto) [place] # Baso # Seg Neutrophils % Seg Neuts % (Manual) Lymphocytes % (Manual) Monocytes % (Manual) Seg Neutrophils # Seg Neutrophils # Man Lymphocytes # (Manual) Monocytes # (Manual) Eosinophils # (Manual) Basophils # (Manual) PT INR APTT ABG pH ABG pO2 ABG HCO3 ABG O2 Saturation ABG Base Excess ABG Hemoglobin Oxyhemoglobin Sodium 146 H Potassium 3.5 L D Chloride Carbon Dioxide BUN 24 H Creatinine 0.6 L Glucose 187 H POC Glucose 117 H 220 H Lactic Acid Calcium Ionized Calcium Phosphorus Magnesium Total Bilirubin AST ALT Alkaline Phosphatase Ammonia Total Creatine Kinase CK-MB (CK-2) CK-MB (CK-2) Rel Index Total Protein Albumin Urine WBC (Auto) Vancomycin Trough Salicylates Acetaminophen Plasma/Serum Alcohol Crossmatch 11/27/19 11/28/19 11/28/19 17:28 05:00 05:02 WBC RBC Hgb Hct MCH RDW Plt Count Lymph % (Auto) [place] % (Auto) [place] # Baso # Seg Neutrophils % Seg Neuts % (Manual) Lymphocytes % (Manual) Monocytes % (Manual) Seg Neutrophils # Seg Neutrophils # Man Lymphocytes # (Manual) Monocytes # (Manual) Eosinophils # (Manual) Basophils # (Manual) PT INR APTT ABG pH ABG pO2 72.4 L ABG HCO3 33.6 H ABG O2 Saturation 94.1 L ABG Base Excess 7.3 H ABG Hemoglobin Oxyhemoglobin 91.8 L Sodium 146 H Potassium 3.3 L Chloride Carbon Dioxide BUN 25 H Creatinine 0.6 L Glucose 176 H POC Glucose 198 H Lactic Acid Calcium Ionized Calcium Phosphorus Magnesium Total Bilirubin AST ALT Alkaline Phosphatase Ammonia Total Creatine Kinase CK-MB (CK-2) CK-MB (CK-2) Rel Index Total Protein Albumin Urine WBC (Auto) Vancomycin Trough Salicylates Acetaminophen Plasma/Serum Alcohol Crossmatch 11/28/19 11/28/19 11/29/19 05:02 18:55 10:43 WBC 15.2 H 19.0 H RBC 3.06 L 3.01 L Hgb 8.3 L 8.3 L Hct 27.0 L 26.4 L MCH 27 L RDW 19.0 H 19.7 H Plt Count 479 H 611 H Lymph % (Auto) [place] % (Auto) [place] # Baso # Seg Neutrophils % Seg Neuts % (Manual) 92.0 H Lymphocytes % (Manual) 2.0 L Monocytes % (Manual) Seg Neutrophils # Seg Neutrophils # Man 14.0 H Lymphocytes # (Manual) 0.3 L Monocytes # (Manual) Eosinophils # (Manual) Basophils # (Manual) PT INR APTT ABG pH ABG pO2 ABG HCO3 ABG O2 Saturation ABG Base Excess ABG Hemoglobin Oxyhemoglobin Sodium Potassium Chloride Carbon Dioxide BUN Creatinine Glucose POC Glucose 138 H Lactic Acid Calcium Ionized Calcium Phosphorus Magnesium Total Bilirubin AST ALT Alkaline Phosphatase Ammonia Total Creatine Kinase CK-MB (CK-2) CK-MB (CK-2) Rel Index Total Protein Albumin Urine WBC (Auto) Vancomycin Trough Salicylates Acetaminophen Plasma/Serum Alcohol Crossmatch 11/29/19 11/29/19 11/29/19 10:43 12:27 19:25 WBC RBC Hgb Hct MCH RDW Plt Count Lymph % (Auto) [place] % (Auto) [place] # Baso # Seg Neutrophils % Seg Neuts % (Manual) Lymphocytes % (Manual) Monocytes % (Manual) Seg Neutrophils # Seg Neutrophils # Man Lymphocytes # (Manual) Monocytes # (Manual) Eosinophils # (Manual) Basophils # (Manual) PT INR APTT ABG pH ABG pO2 ABG HCO3 ABG O2 Saturation ABG Base Excess ABG Hemoglobin Oxyhemoglobin Sodium Potassium 2.8 L* Chloride Carbon Dioxide BUN 20 H Creatinine 0.5 L Glucose 121 H POC Glucose 128 H 120 H Lactic Acid Calcium Ionized Calcium Phosphorus Magnesium Total Bilirubin AST ALT Alkaline Phosphatase Ammonia Total Creatine Kinase CK-MB (CK-2) CK-MB (CK-2) Rel Index Total Protein Albumin Urine WBC (Auto) Vancomycin Trough Salicylates Acetaminophen Plasma/Serum Alcohol Crossmatch 11/29/19 11/30/19 11/30/19 23:46 04:10 05:02 WBC RBC Hgb Hct MCH RDW Plt Count Lymph % (Auto) [place] % (Auto) [place] # Baso # Seg Neutrophils % Seg Neuts % (Manual) Lymphocytes % (Manual) Monocytes % (Manual) Seg Neutrophils # Seg Neutrophils # Man Lymphocytes # (Manual) Monocytes # (Manual) Eosinophils # (Manual) Basophils # (Manual) PT INR APTT ABG pH ABG pO2 76.3 L ABG HCO3 32.5 H ABG O2 Saturation ABG Base Excess 6.9 H ABG Hemoglobin 8.0 L Oxyhemoglobin 92.6 L Sodium Potassium Chloride Carbon Dioxide BUN Creatinine Glucose POC Glucose 116 H 128 H Lactic Acid Calcium Ionized Calcium Phosphorus Magnesium Total Bilirubin AST ALT Alkaline Phosphatase Ammonia Total Creatine Kinase CK-MB (CK-2) CK-MB (CK-2) Rel Index Total Protein Albumin Urine WBC (Auto) Vancomycin Trough Salicylates Acetaminophen Plasma/Serum Alcohol Crossmatch 11/30/19 11/30/19 11/30/19 05:25 05:25 12:59 WBC 18.4 H RBC 3.10 L Hgb 8.5 L Hct 27.5 L MCH 27 L RDW 20.9 H Plt Count 691 H Lymph % (Auto) 7.1 L [place] % (Auto) 7.7 H [place] # 1.4 H Baso # Seg Neutrophils % 83.4 H Seg Neuts % (Manual) Lymphocytes % (Manual) Monocytes % (Manual) Seg Neutrophils # 15.4 H Seg Neutrophils # Man Lymphocytes # (Manual) Monocytes # (Manual) Eosinophils # (Manual) Basophils # (Manual) PT INR APTT ABG pH ABG pO2 ABG HCO3 ABG O2 Saturation ABG Base Excess ABG Hemoglobin Oxyhemoglobin Sodium 146 H Potassium Chloride 107.2 H Carbon Dioxide BUN Creatinine 0.5 L Glucose 132 H POC Glucose 124 H Lactic Acid Calcium Ionized Calcium Phosphorus Magnesium Total Bilirubin AST 246 H ALT 274 H Alkaline Phosphatase 203 H Ammonia Total Creatine Kinase CK-MB (CK-2) CK-MB (CK-2) Rel Index Total Protein 5.4 L Albumin 2.9 L Urine WBC (Auto) Vancomycin Trough Salicylates Acetaminophen Plasma/Serum Alcohol Crossmatch 11/30/19 12/01/19 12/01/19 17:53 00:05 05:10 WBC RBC Hgb Hct MCH RDW Plt Count Lymph % (Auto) [place] % (Auto) [place] # Baso # Seg Neutrophils % Seg Neuts % (Manual) Lymphocytes % (Manual) Monocytes % (Manual) Seg Neutrophils # Seg Neutrophils # Man Lymphocytes # (Manual) Monocytes # (Manual) Eosinophils # (Manual) Basophils # (Manual) PT INR APTT ABG pH ABG pO2 ABG HCO3 ABG O2 Saturation ABG Base Excess ABG Hemoglobin Oxyhemoglobin Sodium Potassium Chloride Carbon Dioxide BUN Creatinine Glucose POC Glucose 113 H 143 H 145 H Lactic Acid Calcium Ionized Calcium Phosphorus Magnesium Total Bilirubin AST ALT Alkaline Phosphatase Ammonia Total Creatine Kinase CK-MB (CK-2) CK-MB (CK-2) Rel Index Total Protein Albumin Urine WBC (Auto) Vancomycin Trough Salicylates Acetaminophen Plasma/Serum Alcohol Crossmatch 12/01/19 12/01/19 12/01/19 05:33 08:23 08:23 WBC 22.7 H RBC 2.88 L Hgb 7.9 L Hct 25.2 L MCH 27 L RDW 21.0 H Plt Count 732 H Lymph % (Auto) [place] % (Auto) [place] # Baso # Seg Neutrophils % Seg Neuts % (Manual) 91.0 H Lymphocytes % (Manual) 3.0 L Monocytes % (Manual) Seg Neutrophils # Seg Neutrophils # Man 20.7 H Lymphocytes # (Manual) 0.7 L Monocytes # (Manual) 1.1 H Eosinophils # (Manual) Basophils # (Manual) PT INR APTT ABG pH ABG pO2 68.6 L ABG HCO3 34.1 H ABG O2 Saturation ABG Base Excess 9.0 H ABG Hemoglobin 6.5 L Oxyhemoglobin 94.7 L Sodium Potassium Chloride Carbon Dioxide BUN Creatinine 0.5 L Glucose 125 H POC Glucose Lactic Acid Calcium Ionized Calcium Phosphorus Magnesium Total Bilirubin AST ALT Alkaline Phosphatase Ammonia Total Creatine Kinase CK-MB (CK-2) CK-MB (CK-2) Rel Index Total Protein Albumin Urine WBC (Auto) Vancomycin Trough Salicylates Acetaminophen Plasma/Serum Alcohol Crossmatch 12/01/19 12/01/19 12/01/19 13:21 17:54 20:59 WBC RBC Hgb Hct MCH RDW Plt Count Lymph % (Auto) [place] % (Auto) [place] # Baso # Seg Neutrophils % Seg Neuts % (Manual) Lymphocytes % (Manual) Monocytes % (Manual) Seg Neutrophils # Seg Neutrophils # Man Lymphocytes # (Manual) Monocytes # (Manual) Eosinophils # (Manual) Basophils # (Manual) PT INR APTT ABG pH ABG pO2 78.3 L ABG HCO3 33.8 H ABG O2 Saturation 94.9 L ABG Base Excess 7.9 H ABG Hemoglobin 11.5 L Oxyhemoglobin 92.3 L Sodium Potassium Chloride Carbon Dioxide BUN Creatinine Glucose POC Glucose 111 H 115 H Lactic Acid Calcium Ionized Calcium Phosphorus Magnesium Total Bilirubin AST ALT Alkaline Phosphatase Ammonia Total Creatine Kinase CK-MB (CK-2) CK-MB (CK-2) Rel Index Total Protein Albumin Urine WBC (Auto) Vancomycin Trough Salicylates Acetaminophen Plasma/Serum Alcohol Crossmatch 12/02/19 12/03/19 12/04/19 12:55 20:00 04:26 WBC 15.2 H RBC 2.69 L Hgb 7.4 L Hct 23.6 L MCH 27 L RDW 19.9 H Plt Count 838 H Lymph % (Auto) [place] % (Auto) [place] # Baso # Seg Neutrophils % Seg Neuts % (Manual) Lymphocytes % (Manual) Monocytes % (Manual) Seg Neutrophils # Seg Neutrophils # Man Lymphocytes # (Manual) Monocytes # (Manual) Eosinophils # (Manual) Basophils # (Manual) PT INR APTT ABG pH ABG pO2 68.3 L ABG HCO3 33.5 H ABG O2 Saturation 93.5 L ABG Base Excess 8.4 H ABG Hemoglobin 7.3 L Oxyhemoglobin 90.9 L Sodium Potassium Chloride Carbon Dioxide BUN Creatinine Glucose POC Glucose 107 H Lactic Acid Calcium Ionized Calcium Phosphorus Magnesium Total Bilirubin AST ALT Alkaline Phosphatase Ammonia Total Creatine Kinase CK-MB (CK-2) CK-MB (CK-2) Rel Index Total Protein Albumin Urine WBC (Auto) Vancomycin Trough Salicylates Acetaminophen Plasma/Serum Alcohol Crossmatch 12/04/19 12/04/19 12/04/19 04:26 07:45 12:02 WBC 15.9 H RBC 2.88 L Hgb 7.9 L Hct 25.1 L MCH RDW 20.4 H Plt Count 839 H Lymph % (Auto) 11.3 L [place] % (Auto) 15.2 H [place] # 2.4 H Baso # Seg Neutrophils % 72.4 H Seg Neuts % (Manual) Lymphocytes % (Manual) Monocytes % (Manual) Seg Neutrophils # 11.5 H Seg Neutrophils # Man Lymphocytes # (Manual) Monocytes # (Manual) Eosinophils # (Manual) Basophils # (Manual) PT INR APTT ABG pH ABG pO2 ABG HCO3 ABG O2 Saturation ABG Base Excess ABG Hemoglobin Oxyhemoglobin Sodium Potassium Chloride 96.5 L Carbon Dioxide BUN 21 H Creatinine 0.6 L Glucose 107 H POC Glucose 138 H Lactic Acid Calcium Ionized Calcium Phosphorus Magnesium Total Bilirubin AST ALT Alkaline Phosphatase Ammonia Total Creatine Kinase CK-MB (CK-2) CK-MB (CK-2) Rel Index Total Protein Albumin Urine WBC (Auto) Vancomycin Trough Salicylates Acetaminophen Plasma/Serum Alcohol Crossmatch 12/04/19 12/05/19 12/05/19 18:16 11:55 18:36 WBC RBC Hgb Hct MCH RDW Plt Count Lymph % (Auto) [place] % (Auto) [place] # Baso # Seg Neutrophils % Seg Neuts % (Manual) Lymphocytes % (Manual) Monocytes % (Manual) Seg Neutrophils # Seg Neutrophils # Man Lymphocytes # (Manual) Monocytes # (Manual) Eosinophils # (Manual) Basophils # (Manual) PT INR APTT ABG pH ABG pO2 ABG HCO3 ABG O2 Saturation ABG Base Excess ABG Hemoglobin Oxyhemoglobin Sodium Potassium Chloride Carbon Dioxide BUN Creatinine Glucose POC Glucose 135 H 125 H 135 H Lactic Acid Calcium Ionized Calcium Phosphorus Magnesium Total Bilirubin AST ALT Alkaline Phosphatase Ammonia Total Creatine Kinase CK-MB (CK-2) CK-MB (CK-2) Rel Index Total Protein Albumin Urine WBC (Auto) Vancomycin Trough Salicylates Acetaminophen Plasma/Serum Alcohol Crossmatch 12/05/19 12/06/19 12/06/19 23:30 04:14 05:43 WBC RBC Hgb Hct MCH RDW Plt Count Lymph % (Auto) [place] % (Auto) [place] # Baso # Seg Neutrophils % Seg Neuts % (Manual) Lymphocytes % (Manual) Monocytes % (Manual) Seg Neutrophils # Seg Neutrophils # Man Lymphocytes # (Manual) Monocytes # (Manual) Eosinophils # (Manual) Basophils # (Manual) PT INR APTT ABG pH ABG pO2 ABG HCO3 ABG O2 Saturation ABG Base Excess ABG Hemoglobin Oxyhemoglobin Sodium Potassium 5.6 H Chloride 95.0 L Carbon Dioxide BUN 48 H Creatinine 1.3 H D Glucose POC Glucose 126 H 121 H Lactic Acid Calcium Ionized Calcium Phosphorus Magnesium Total Bilirubin AST 89 H ALT 98 H Alkaline Phosphatase 476 H Ammonia Total Creatine Kinase CK-MB (CK-2) CK-MB (CK-2) Rel Index Total Protein Albumin 2.8 L Urine WBC (Auto) Vancomycin Trough Salicylates Acetaminophen Plasma/Serum Alcohol Crossmatch 12/06/19 12/06/19 12/07/19 10:39 14:34 00:19 WBC 17.3 H RBC 2.60 L Hgb 7.1 L Hct 22.7 L MCH 27 L RDW 20.1 H Plt Count 832 H Lymph % (Auto) [place] % (Auto) [place] # Baso # Seg Neutrophils % Seg Neuts % (Manual) Lymphocytes % (Manual) Monocytes % (Manual) Seg Neutrophils # Seg Neutrophils # Man Lymphocytes # (Manual) Monocytes # (Manual) Eosinophils # (Manual) Basophils # (Manual) PT INR APTT ABG pH ABG pO2 ABG HCO3 ABG O2 Saturation ABG Base Excess ABG Hemoglobin Oxyhemoglobin Sodium Potassium Chloride Carbon Dioxide BUN Creatinine Glucose POC Glucose 128 H 136 H Lactic Acid Calcium Ionized Calcium Phosphorus Magnesium Total Bilirubin AST ALT Alkaline Phosphatase Ammonia Total Creatine Kinase CK-MB (CK-2) CK-MB (CK-2) Rel Index Total Protein Albumin Urine WBC (Auto) Vancomycin Trough Salicylates Acetaminophen Plasma/Serum Alcohol Crossmatch 12/07/19 12/07/19 12/07/19 03:44 03:44 05:53 WBC 16.2 H RBC 2.56 L Hgb 7.1 L Hct 22.3 L MCH RDW 19.4 H Plt Count 782 H Lymph % (Auto) [place] % (Auto) [place] # Baso # Seg Neutrophils % Seg Neuts % (Manual) Lymphocytes % (Manual) Monocytes % (Manual) Seg Neutrophils # Seg Neutrophils # Man Lymphocytes # (Manual) Monocytes # (Manual) Eosinophils # (Manual) Basophils # (Manual) PT INR APTT ABG pH ABG pO2 ABG HCO3 ABG O2 Saturation ABG Base Excess ABG Hemoglobin Oxyhemoglobin Sodium Potassium Chloride 95.6 L Carbon Dioxide BUN 56 H Creatinine 1.4 H Glucose 120 H POC Glucose 128 H Lactic Acid Calcium 10.3 H Ionized Calcium Phosphorus Magnesium Total Bilirubin AST ALT Alkaline Phosphatase Ammonia Total Creatine Kinase CK-MB (CK-2) CK-MB (CK-2) Rel Index Total Protein Albumin Urine WBC (Auto) Vancomycin Trough Salicylates Acetaminophen Plasma/Serum Alcohol Crossmatch 12/07/19 12/07/19 12/08/19 12:54 23:47 00:20 WBC RBC Hgb Hct MCH RDW Plt Count Lymph % (Auto) [place] % (Auto) [place] # Baso # Seg Neutrophils % Seg Neuts % (Manual) Lymphocytes % (Manual) Monocytes % (Manual) Seg Neutrophils # Seg Neutrophils # Man Lymphocytes # (Manual) Monocytes # (Manual) Eosinophils # (Manual) Basophils # (Manual) PT INR APTT ABG pH ABG pO2 ABG HCO3 ABG O2 Saturation ABG Base Excess ABG Hemoglobin Oxyhemoglobin Sodium Potassium Chloride Carbon Dioxide BUN Creatinine Glucose POC Glucose 128 H 130 H 124 H Lactic Acid Calcium Ionized Calcium Phosphorus Magnesium Total Bilirubin AST ALT Alkaline Phosphatase Ammonia Total Creatine Kinase CK-MB (CK-2) CK-MB (CK-2) Rel Index Total Protein Albumin Urine WBC (Auto) Vancomycin Trough Salicylates Acetaminophen Plasma/Serum Alcohol Crossmatch 12/08/19 12/08/19 12/08/19 06:38 12:04 18:26 WBC RBC Hgb Hct MCH RDW Plt Count Lymph % (Auto) [place] % (Auto) [place] # Baso # Seg Neutrophils % Seg Neuts % (Manual) Lymphocytes % (Manual) Monocytes % (Manual) Seg Neutrophils # Seg Neutrophils # Man Lymphocytes # (Manual) Monocytes # (Manual) Eosinophils # (Manual) Basophils # (Manual) PT INR APTT ABG pH ABG pO2 ABG HCO3 ABG O2 Saturation ABG Base Excess ABG Hemoglobin Oxyhemoglobin Sodium Potassium Chloride Carbon Dioxide BUN Creatinine Glucose POC Glucose 137 H 129 H 150 H Lactic Acid Calcium Ionized Calcium Phosphorus Magnesium Total Bilirubin AST ALT Alkaline Phosphatase Ammonia Total Creatine Kinase CK-MB (CK-2) CK-MB (CK-2) Rel Index Total Protein Albumin Urine WBC (Auto) Vancomycin Trough Salicylates Acetaminophen Plasma/Serum Alcohol Crossmatch 12/09/19 12/09/19 12/09/19 00:56 05:34 06:13 WBC RBC Hgb Hct MCH RDW Plt Count Lymph % (Auto) [place] % (Auto) [place] # Baso # Seg Neutrophils % Seg Neuts % (Manual) Lymphocytes % (Manual) Monocytes % (Manual) Seg Neutrophils # Seg Neutrophils # Man Lymphocytes # (Manual) Monocytes # (Manual) Eosinophils # (Manual) Basophils # (Manual) PT INR APTT ABG pH ABG pO2 ABG HCO3 ABG O2 Saturation ABG Base Excess ABG Hemoglobin Oxyhemoglobin Sodium 146 H Potassium Chloride Carbon Dioxide BUN 66 H Creatinine 1.9 H Glucose 116 H POC Glucose 130 H 130 H Lactic Acid Calcium Ionized Calcium Phosphorus Magnesium Total Bilirubin AST ALT Alkaline Phosphatase Ammonia Total Creatine Kinase CK-MB (CK-2) CK-MB (CK-2) Rel Index Total Protein Albumin Urine WBC (Auto) Vancomycin Trough Salicylates Acetaminophen Plasma/Serum Alcohol Crossmatch 12/09/19 12/09/19 12/10/19 11:52 17:50 00:14 WBC RBC Hgb Hct MCH RDW Plt Count Lymph % (Auto) [place] % (Auto) [place] # Baso # Seg Neutrophils % Seg Neuts % (Manual) Lymphocytes % (Manual) Monocytes % (Manual) Seg Neutrophils # Seg Neutrophils # Man Lymphocytes # (Manual) Monocytes # (Manual) Eosinophils # (Manual) Basophils # (Manual) PT INR APTT ABG pH ABG pO2 ABG HCO3 ABG O2 Saturation ABG Base Excess ABG Hemoglobin Oxyhemoglobin Sodium Potassium Chloride Carbon Dioxide BUN Creatinine Glucose POC Glucose 135 H 120 H 116 H Lactic Acid Calcium Ionized Calcium Phosphorus Magnesium Total Bilirubin AST ALT Alkaline Phosphatase Ammonia Total Creatine Kinase CK-MB (CK-2) CK-MB (CK-2) Rel Index Total Protein Albumin Urine WBC (Auto) Vancomycin Trough Salicylates Acetaminophen Plasma/Serum Alcohol Crossmatch 12/10/19 12/10/19 12/10/19 05:38 11:38 17:34 WBC RBC Hgb Hct MCH RDW Plt Count Lymph % (Auto) [place] % (Auto) [place] # Baso # Seg Neutrophils % Seg Neuts % (Manual) Lymphocytes % (Manual) Monocytes % (Manual) Seg Neutrophils # Seg Neutrophils # Man Lymphocytes # (Manual) Monocytes # (Manual) Eosinophils # (Manual) Basophils # (Manual) PT INR APTT ABG pH ABG pO2 ABG HCO3 ABG O2 Saturation ABG Base Excess ABG Hemoglobin Oxyhemoglobin Sodium Potassium Chloride Carbon Dioxide BUN Creatinine Glucose POC Glucose 115 H 112 H 130 H Lactic Acid Calcium Ionized Calcium Phosphorus Magnesium Total Bilirubin AST ALT Alkaline Phosphatase Ammonia Total Creatine Kinase CK-MB (CK-2) CK-MB (CK-2) Rel Index Total Protein Albumin Urine WBC (Auto) Vancomycin Trough Salicylates Acetaminophen Plasma/Serum Alcohol Crossmatch 03/24/20 03/24/20 03/24/20 00:20 05:31 12:22 WBC RBC Hgb Hct MCH RDW Plt Count Lymph % (Auto) [place] % (Auto) [place] # Baso # Seg Neutrophils % Seg Neuts % (Manual) Lymphocytes % (Manual) Monocytes % (Manual) Seg Neutrophils # Seg Neutrophils # Man Lymphocytes # (Manual) Monocytes # (Manual) Eosinophils # (Manual) Basophils # (Manual) PT INR APTT ABG pH ABG pO2 ABG HCO3 ABG O2 Saturation ABG Base Excess ABG Hemoglobin Oxyhemoglobin Sodium Potassium Chloride Carbon Dioxide BUN Creatinine Glucose POC Glucose 124 H 132 H 128 H Lactic Acid Calcium Ionized Calcium Phosphorus Magnesium Total Bilirubin AST ALT Alkaline Phosphatase Ammonia Total Creatine Kinase CK-MB (CK-2) CK-MB (CK-2) Rel Index Total Protein Albumin Urine WBC (Auto) Vancomycin Trough Salicylates Acetaminophen Plasma/Serum Alcohol Crossmatch 12/11/19 12/11/19 12/12/19 18:04 23:42 03:51 WBC RBC Hgb Hct MCH RDW Plt Count Lymph % (Auto) [place] % (Auto) [place] # Baso # Seg Neutrophils % Seg Neuts % (Manual) Lymphocytes % (Manual) Monocytes % (Manual) Seg Neutrophils # Seg Neutrophils # Man Lymphocytes # (Manual) Monocytes # (Manual) Eosinophils # (Manual) Basophils # (Manual) PT INR APTT ABG pH ABG pO2 ABG HCO3 ABG O2 Saturation ABG Base Excess ABG Hemoglobin Oxyhemoglobin Sodium 149 H Potassium Chloride Carbon Dioxide 20 L D BUN 77 H Creatinine 2.8 H Glucose POC Glucose 133 H 154 H Lactic Acid Calcium Ionized Calcium Phosphorus Magnesium Total Bilirubin AST ALT Alkaline Phosphatase Ammonia Total Creatine Kinase CK-MB (CK-2) CK-MB (CK-2) Rel Index Total Protein Albumin Urine WBC (Auto) Vancomycin Trough Salicylates Acetaminophen Plasma/Serum Alcohol Crossmatch 12/12/19 12/12/19 12/12/19 05:18 05:26 10:30 WBC 18.0 H RBC 2.51 L Hgb 6.8 L Hct 22.0 L MCH 27 L RDW 19.9 H Plt Count 582 H Lymph % (Auto) [place] % (Auto) [place] # Baso # Seg Neutrophils % Seg Neuts % (Manual) Lymphocytes % (Manual) Monocytes % (Manual) Seg Neutrophils # Seg Neutrophils # Man Lymphocytes # (Manual) Monocytes # (Manual) Eosinophils # (Manual) Basophils # (Manual) PT INR APTT ABG pH ABG pO2 ABG HCO3 ABG O2 Saturation ABG Base Excess ABG Hemoglobin Oxyhemoglobin Sodium Potassium Chloride Carbon Dioxide BUN Creatinine Glucose POC Glucose 135 H Lactic Acid Calcium Ionized Calcium Phosphorus Magnesium Total Bilirubin AST ALT Alkaline Phosphatase Ammonia Total Creatine Kinase CK-MB (CK-2) CK-MB (CK-2) Rel Index Total Protein Albumin Urine WBC (Auto) Vancomycin Trough Salicylates Acetaminophen Plasma/Serum Alcohol Crossmatch See Detail 12/12/19 12/12/19 12/12/19 11:44 18:10 23:21 WBC RBC Hgb Hct MCH RDW Plt Count Lymph % (Auto) [place] % (Auto) [place] # Baso # Seg Neutrophils % Seg Neuts % (Manual) Lymphocytes % (Manual) Monocytes % (Manual) Seg Neutrophils # Seg Neutrophils # Man Lymphocytes # (Manual) Monocytes # (Manual) Eosinophils # (Manual) Basophils # (Manual) PT INR APTT ABG pH ABG pO2 ABG HCO3 ABG O2 Saturation ABG Base Excess ABG Hemoglobin Oxyhemoglobin Sodium Potassium Chloride Carbon Dioxide BUN Creatinine Glucose POC Glucose 108 H 107 H 126 H Lactic Acid Calcium Ionized Calcium Phosphorus Magnesium Total Bilirubin AST ALT Alkaline Phosphatase Ammonia Total Creatine Kinase CK-MB (CK-2) CK-MB (CK-2) Rel Index Total Protein Albumin Urine WBC (Auto) Vancomycin Trough Salicylates Acetaminophen Plasma/Serum Alcohol Crossmatch 12/13/19 12/13/19 12/13/19 05:41 07:48 07:48 WBC 38.3 H RBC 2.37 L Hgb 6.3 L Hct 20.9 L MCH 27 L RDW 20.2 H Plt Count 546 H Lymph % (Auto) [place] % (Auto) [place] # Baso # Seg Neutrophils % Seg Neuts % (Manual) 93.0 H Lymphocytes % (Manual) 1.0 L Monocytes % (Manual) Seg Neutrophils # Seg Neutrophils # Man 35.6 H Lymphocytes # (Manual) 0.4 L Monocytes # (Manual) Eosinophils # (Manual) Basophils # (Manual) 0.4 H PT INR APTT ABG pH ABG pO2 ABG HCO3 ABG O2 Saturation ABG Base Excess ABG Hemoglobin Oxyhemoglobin Sodium 152 H Potassium 3.1 L D Chloride 111.9 H Carbon Dioxide 21 L BUN 53 H Creatinine 1.9 H Glucose 141 H POC Glucose 128 H Lactic Acid Calcium Ionized Calcium Phosphorus Magnesium Total Bilirubin AST ALT Alkaline Phosphatase 316 H Ammonia Total Creatine Kinase CK-MB (CK-2) CK-MB (CK-2) Rel Index Total Protein Albumin 2.4 L Urine WBC (Auto) Vancomycin Trough Salicylates Acetaminophen Plasma/Serum Alcohol Crossmatch 12/13/19 12/13/19 12/14/19 18:17 23:19 05:36 WBC RBC Hgb Hct MCH RDW Plt Count Lymph % (Auto) [place] % (Auto) [place] # Baso # Seg Neutrophils % Seg Neuts % (Manual) Lymphocytes % (Manual) Monocytes % (Manual) Seg Neutrophils # Seg Neutrophils # Man Lymphocytes # (Manual) Monocytes # (Manual) Eosinophils # (Manual) Basophils # (Manual) PT INR APTT ABG pH ABG pO2 ABG HCO3 ABG O2 Saturation ABG Base Excess ABG Hemoglobin Oxyhemoglobin Sodium Potassium Chloride Carbon Dioxide BUN Creatinine Glucose POC Glucose 141 H 158 H 182 H Lactic Acid Calcium Ionized Calcium Phosphorus Magnesium Total Bilirubin AST ALT Alkaline Phosphatase Ammonia Total Creatine Kinase CK-MB (CK-2) CK-MB (CK-2) Rel Index Total Protein Albumin Urine WBC (Auto) Vancomycin Trough Salicylates Acetaminophen Plasma/Serum Alcohol Crossmatch 12/14/19 12/14/19 12/14/19 08:48 08:48 10:31 WBC 33.3 H RBC 2.70 L Hgb 7.9 L 8.0 L Hct 25.3 L 24.0 L MCH RDW 19.2 H Plt Count 476 H Lymph % (Auto) [place] % (Auto) [place] # Baso # Seg Neutrophils % Seg Neuts % (Manual) Lymphocytes % (Manual) Monocytes % (Manual) Seg Neutrophils # Seg Neutrophils # Man Lymphocytes # (Manual) Monocytes # (Manual) Eosinophils # (Manual) Basophils # (Manual) PT INR APTT ABG pH ABG pO2 ABG HCO3 ABG O2 Saturation ABG Base Excess ABG Hemoglobin Oxyhemoglobin Sodium 153 H Potassium 2.5 L* Chloride 114.9 H Carbon Dioxide 20 L BUN 38 H Creatinine 1.4 H Glucose 177 H POC Glucose Lactic Acid Calcium Ionized Calcium Phosphorus Magnesium Total Bilirubin AST ALT Alkaline Phosphatase Ammonia Total Creatine Kinase CK-MB (CK-2) CK-MB (CK-2) Rel Index Total Protein Albumin Urine WBC (Auto) Vancomycin Trough Salicylates Acetaminophen Plasma/Serum Alcohol Crossmatch 12/14/19 12/14/1920 12:57 16:15 17:50 WBC RBC Hgb Hct MCH RDW Plt Count Lymph % (Auto) [place] % (Auto) [place] # Baso # Seg Neutrophils % Seg Neuts % (Manual) Lymphocytes % (Manual) Monocytes % (Manual) Seg Neutrophils # Seg Neutrophils # Man Lymphocytes # (Manual) Monocytes # (Manual) Eosinophils # (Manual) Basophils # (Manual) PT INR APTT ABG pH ABG pO2 73.6 L ABG HCO3 ABG O2 Saturation ABG Base Excess ABG Hemoglobin 7.6 L Oxyhemoglobin 94.0 L Sodium Potassium Chloride Carbon Dioxide BUN Creatinine Glucose POC Glucose 174 H 150 H Lactic Acid Calcium Ionized Calcium Phosphorus Magnesium Total Bilirubin AST ALT Alkaline Phosphatase Ammonia Total Creatine Kinase CK-MB (CK-2) CK-MB (CK-2) Rel Index Total Protein Albumin Urine WBC (Auto) Vancomycin Trough Salicylates Acetaminophen Plasma/Serum Alcohol Crossmatch 12/15/19 12/15/19 12/15/19 00:28 05:27 07:23 WBC 30.0 H RBC 3.11 L Hgb 8.6 L Hct 27.7 L MCH RDW 20.0 H Plt Count 473 H Lymph % (Auto) [place] % (Auto) [place] # Baso # Seg Neutrophils % Seg Neuts % (Manual) Lymphocytes % (Manual) Monocytes % (Manual) Seg Neutrophils # Seg Neutrophils # Man Lymphocytes # (Manual) Monocytes # (Manual) Eosinophils # (Manual) Basophils # (Manual) PT INR APTT ABG pH ABG pO2 ABG HCO3 ABG O2 Saturation ABG Base Excess ABG Hemoglobin Oxyhemoglobin Sodium Potassium Chloride Carbon Dioxide BUN Creatinine Glucose POC Glucose 167 H 148 H Lactic Acid Calcium Ionized Calcium Phosphorus Magnesium Total Bilirubin AST ALT Alkaline Phosphatase Ammonia Total Creatine Kinase CK-MB (CK-2) CK-MB (CK-2) Rel Index Total Protein Albumin Urine WBC (Auto) Vancomycin Trough Salicylates Acetaminophen Plasma/Serum Alcohol Crossmatch 12/15/19 12/15/19 12/15/19 07:23 12:21 17:41 WBC RBC Hgb Hct MCH RDW Plt Count Lymph % (Auto) [place] % (Auto) [place] # Baso # Seg Neutrophils % Seg Neuts % (Manual) Lymphocytes % (Manual) Monocytes % (Manual) Seg Neutrophils # Seg Neutrophils # Man Lymphocytes # (Manual) Monocytes # (Manual) Eosinophils # (Manual) Basophils # (Manual) PT INR APTT ABG pH ABG pO2 ABG HCO3 ABG O2 Saturation ABG Base Excess ABG Hemoglobin Oxyhemoglobin Sodium 147 H Potassium 3.5 L D Chloride 111.2 H Carbon Dioxide 19 L BUN 29 H Creatinine Glucose 126 H POC Glucose 154 H 144 H Lactic Acid Calcium Ionized Calcium Phosphorus Magnesium Total Bilirubin AST ALT Alkaline Phosphatase Ammonia Total Creatine Kinase CK-MB (CK-2) CK-MB (CK-2) Rel Index Total Protein Albumin Urine WBC (Auto) Vancomycin Trough Salicylates Acetaminophen Plasma/Serum Alcohol Crossmatch 12/16/19 12/16/19 12/16/19 00:22 05:30 05:44 WBC 30.8 H RBC 2.58 L Hgb 7.1 L Hct 22.7 L MCH RDW 19.6 H Plt Count 451 H Lymph % (Auto) [place] % (Auto) [place] # Baso # Seg Neutrophils % Seg Neuts % (Manual) Lymphocytes % (Manual) Monocytes % (Manual) Seg Neutrophils # Seg Neutrophils # Man Lymphocytes # (Manual) Monocytes # (Manual) Eosinophils # (Manual) Basophils # (Manual) PT INR APTT ABG pH ABG pO2 ABG HCO3 ABG O2 Saturation ABG Base Excess ABG Hemoglobin Oxyhemoglobin Sodium Potassium Chloride Carbon Dioxide BUN Creatinine Glucose POC Glucose 139 H 126 H Lactic Acid Calcium Ionized Calcium Phosphorus Magnesium Total Bilirubin AST ALT Alkaline Phosphatase Ammonia Total Creatine Kinase CK-MB (CK-2) CK-MB (CK-2) Rel Index Total Protein Albumin Urine WBC (Auto) Vancomycin Trough Salicylates Acetaminophen Plasma/Serum Alcohol Crossmatch 12/16/19 12/16/19 12/16/19 05:44 11:48 17:37 WBC RBC Hgb Hct MCH RDW Plt Count Lymph % (Auto) [place] % (Auto) [place] # Baso # Seg Neutrophils % Seg Neuts % (Manual) Lymphocytes % (Manual) Monocytes % (Manual) Seg Neutrophils # Seg Neutrophils # Man Lymphocytes # (Manual) Monocytes # (Manual) Eosinophils # (Manual) Basophils # (Manual) PT INR APTT ABG pH ABG pO2 ABG HCO3 ABG O2 Saturation ABG Base Excess ABG Hemoglobin Oxyhemoglobin Sodium Potassium 3.4 L Chloride 109.2 H Carbon Dioxide 19 L BUN 27 H Creatinine Glucose 124 H POC Glucose 125 H 148 H Lactic Acid Calcium Ionized Calcium Phosphorus Magnesium Total Bilirubin AST ALT Alkaline Phosphatase Ammonia Total Creatine Kinase CK-MB (CK-2) CK-MB (CK-2) Rel Index Total Protein Albumin Urine WBC (Auto) Vancomycin Trough Salicylates Acetaminophen Plasma/Serum Alcohol Crossmatch 12/16/19 12/17/19 12/17/19 23:43 05:28 12:47 WBC RBC Hgb Hct MCH RDW Plt Count Lymph % (Auto) [place] % (Auto) [place] # Baso # Seg Neutrophils % Seg Neuts % (Manual) Lymphocytes % (Manual) Monocytes % (Manual) Seg Neutrophils # Seg Neutrophils # Man Lymphocytes # (Manual) Monocytes # (Manual) Eosinophils # (Manual) Basophils # (Manual) PT INR APTT ABG pH ABG pO2 ABG HCO3 ABG O2 Saturation ABG Base Excess ABG Hemoglobin Oxyhemoglobin Sodium Potassium Chloride Carbon Dioxide BUN Creatinine Glucose POC Glucose 142 H 140 H 125 H Lactic Acid Calcium Ionized Calcium Phosphorus Magnesium Total Bilirubin AST ALT Alkaline Phosphatase Ammonia Total Creatine Kinase CK-MB (CK-2) CK-MB (CK-2) Rel Index Total Protein Albumin Urine WBC (Auto) Vancomycin Trough Salicylates Acetaminophen Plasma/Serum Alcohol Crossmatch 12/17/19 12/17/19 12/17/19 17:05 18:00 Unknown WBC RBC Hgb Hct MCH RDW Plt Count Lymph % (Auto) [place] % (Auto) [place] # Baso # Seg Neutrophils % Seg Neuts % (Manual) Lymphocytes % (Manual) Monocytes % (Manual) Seg Neutrophils # Seg Neutrophils # Man Lymphocytes # (Manual) Monocytes # (Manual) Eosinophils # (Manual) Basophils # (Manual) PT INR APTT ABG pH ABG pO2 68.1 L ABG HCO3 ABG O2 Saturation 93.7 L ABG Base Excess ABG Hemoglobin 5.0 L Oxyhemoglobin 91.7 L Sodium Potassium Chloride Carbon Dioxide BUN Creatinine Glucose POC Glucose 140 H Lactic Acid Calcium Ionized Calcium Phosphorus Magnesium Total Bilirubin AST ALT Alkaline Phosphatase Ammonia Total Creatine Kinase CK-MB (CK-2) CK-MB (CK-2) Rel Index Total Protein Albumin Urine WBC (Auto) Vancomycin Trough Salicylates Acetaminophen Plasma/Serum Alcohol Crossmatch 12/18/19 12/18/19 12/18/19 00:16 04:53 04:53 WBC 28.6 H RBC 2.27 L Hgb 6.3 L Hct 19.5 L* MCH RDW 20.0 H Plt Count 497 H Lymph % (Auto) [place] % (Auto) [place] # Baso # Seg Neutrophils % Seg Neuts % (Manual) Lymphocytes % (Manual) Monocytes % (Manual) Seg Neutrophils # Seg Neutrophils # Man Lymphocytes # (Manual) Monocytes # (Manual) Eosinophils # (Manual) Basophils # (Manual) PT INR APTT ABG pH ABG pO2 ABG HCO3 ABG O2 Saturation ABG Base Excess ABG Hemoglobin Oxyhemoglobin Sodium Potassium Chloride 107.9 H Carbon Dioxide 20 L BUN 27 H Creatinine 0.6 L Glucose 116 H POC Glucose 123 H Lactic Acid Calcium Ionized Calcium Phosphorus Magnesium Total Bilirubin AST ALT Alkaline Phosphatase Ammonia Total Creatine Kinase CK-MB (CK-2) CK-MB (CK-2) Rel Index Total Protein Albumin Urine WBC (Auto) Vancomycin Trough Salicylates Acetaminophen Plasma/Serum Alcohol Crossmatch 12/18/19 12/18/19 12/18/19 06:38 11:22 12:08 WBC RBC Hgb Hct MCH RDW Plt Count Lymph % (Auto) [place] % (Auto) [place] # Baso # Seg Neutrophils % Seg Neuts % (Manual) Lymphocytes % (Manual) Monocytes % (Manual) Seg Neutrophils # Seg Neutrophils # Man Lymphocytes # (Manual) Monocytes # (Manual) Eosinophils # (Manual) Basophils # (Manual) PT INR APTT ABG pH ABG pO2 ABG HCO3 ABG O2 Saturation ABG Base Excess ABG Hemoglobin Oxyhemoglobin Sodium Potassium Chloride Carbon Dioxide BUN Creatinine Glucose POC Glucose 120 H 127 H Lactic Acid Calcium Ionized Calcium Phosphorus Magnesium Total Bilirubin AST ALT Alkaline Phosphatase Ammonia Total Creatine Kinase CK-MB (CK-2) CK-MB (CK-2) Rel Index Total Protein Albumin Urine WBC (Auto) Vancomycin Trough Salicylates Acetaminophen Plasma/Serum Alcohol Crossmatch See Detail 12/18/19 12/18/19 12/18/19 14:05 17:49 23:53 WBC RBC Hgb Hct MCH RDW Plt Count Lymph % (Auto) [place] % (Auto) [place] # Baso # Seg Neutrophils % Seg Neuts % (Manual) Lymphocytes % (Manual) Monocytes % (Manual) Seg Neutrophils # Seg Neutrophils # Man Lymphocytes # (Manual) Monocytes # (Manual) Eosinophils # (Manual) Basophils # (Manual) PT INR APTT ABG pH 7.267 L ABG pO2 69.8 L ABG HCO3 ABG O2 Saturation 88.4 L ABG Base Excess ABG Hemoglobin 7.1 L Oxyhemoglobin 86.4 L Sodium Potassium Chloride Carbon Dioxide BUN Creatinine Glucose POC Glucose 157 H 128 H Lactic Acid Calcium Ionized Calcium Phosphorus Magnesium Total Bilirubin AST ALT Alkaline Phosphatase Ammonia Total Creatine Kinase CK-MB (CK-2) CK-MB (CK-2) Rel Index Total Protein Albumin Urine WBC (Auto) Vancomycin Trough Salicylates Acetaminophen Plasma/Serum Alcohol Crossmatch 12/19/19 12/19/19 12/19/19 03:37 03:37 05:25 WBC 31.3 H RBC 2.60 L Hgb 7.6 L Hct 23.0 L MCH RDW 19.4 H Plt Count 530 H Lymph % (Auto) [place] % (Auto) [place] # Baso # Seg Neutrophils % Seg Neuts % (Manual) Lymphocytes % (Manual) Monocytes % (Manual) Seg Neutrophils # Seg Neutrophils # Man Lymphocytes # (Manual) Monocytes # (Manual) Eosinophils # (Manual) Basophils # (Manual) PT INR APTT ABG pH ABG pO2 ABG HCO3 ABG O2 Saturation ABG Base Excess ABG Hemoglobin Oxyhemoglobin Sodium Potassium Chloride Carbon Dioxide 18 L BUN 36 H Creatinine Glucose 111 H POC Glucose 123 H Lactic Acid Calcium Ionized Calcium Phosphorus Magnesium Total Bilirubin AST ALT Alkaline Phosphatase Ammonia Total Creatine Kinase CK-MB (CK-2) CK-MB (CK-2) Rel Index Total Protein Albumin Urine WBC (Auto) Vancomycin Trough Salicylates Acetaminophen Plasma/Serum Alcohol Crossmatch 12/19/19 12/19/19 12/20/19 12:59 18:33 00:00 WBC RBC Hgb Hct MCH RDW Plt Count Lymph % (Auto) [place] % (Auto) [place] # Baso # Seg Neutrophils % Seg Neuts % (Manual) Lymphocytes % (Manual) Monocytes % (Manual) Seg Neutrophils # Seg Neutrophils # Man Lymphocytes # (Manual) Monocytes # (Manual) Eosinophils # (Manual) Basophils # (Manual) PT INR APTT ABG pH ABG pO2 ABG HCO3 ABG O2 Saturation ABG Base Excess ABG Hemoglobin Oxyhemoglobin Sodium Potassium Chloride Carbon Dioxide BUN Creatinine Glucose POC Glucose 130 H 118 H 135 H Lactic Acid Calcium Ionized Calcium Phosphorus Magnesium Total Bilirubin AST ALT Alkaline Phosphatase Ammonia Total Creatine Kinase CK-MB (CK-2) CK-MB (CK-2) Rel Index Total Protein Albumin Urine WBC (Auto) Vancomycin Trough Salicylates Acetaminophen Plasma/Serum Alcohol Crossmatch 04/11/0812/20/19 12/20/19 05:46 12:31 18:07 WBC RBC Hgb Hct MCH RDW Plt Count Lymph % (Auto) [place] % (Auto) [place] # Baso # Seg Neutrophils % Seg Neuts % (Manual) Lymphocytes % (Manual) Monocytes % (Manual) Seg Neutrophils # Seg Neutrophils # Man Lymphocytes # (Manual) Monocytes # (Manual) Eosinophils # (Manual) Basophils # (Manual) PT INR APTT ABG pH ABG pO2 ABG HCO3 ABG O2 Saturation ABG Base Excess ABG Hemoglobin Oxyhemoglobin Sodium Potassium Chloride Carbon Dioxide BUN Creatinine Glucose POC Glucose 131 H 128 H 134 H Lactic Acid Calcium Ionized Calcium Phosphorus Magnesium Total Bilirubin AST ALT Alkaline Phosphatase Ammonia Total Creatine Kinase CK-MB (CK-2) CK-MB (CK-2) Rel Index Total Protein Albumin Urine WBC (Auto) Vancomycin Trough Salicylates Acetaminophen Plasma/Serum Alcohol Crossmatch 12/21/19 12/21/19 12/21/19 03:28 03:28 07:21 WBC 29.4 H RBC 2.30 L Hgb 6.8 L Hct 20.2 L MCH RDW 20.2 H Plt Count 746 H Lymph % (Auto) [place] % (Auto) [place] # Baso # Seg Neutrophils % Seg Neuts % (Manual) 85.0 H Lymphocytes % (Manual) 8.0 L Monocytes % (Manual) Seg Neutrophils # Seg Neutrophils # Man 25.0 H Lymphocytes # (Manual) Monocytes # (Manual) 1.5 H Eosinophils # (Manual) 0.6 H Basophils # (Manual) PT INR APTT ABG pH ABG pO2 ABG HCO3 ABG O2 Saturation ABG Base Excess ABG Hemoglobin Oxyhemoglobin Sodium Potassium Chloride Carbon Dioxide 17 L BUN 57 H Creatinine 1.4 H D Glucose POC Glucose 124 H Lactic Acid Calcium Ionized Calcium Phosphorus Magnesium Total Bilirubin AST ALT Alkaline Phosphatase Ammonia Total Creatine Kinase CK-MB (CK-2) CK-MB (CK-2) Rel Index Total Protein Albumin Urine WBC (Auto) Vancomycin Trough Salicylates Acetaminophen Plasma/Serum Alcohol Crossmatch 12/21/19 12/21/19 12/21/19 08:56 12:06 14:53 WBC RBC Hgb 7.2 L Hct 22.9 L MCH RDW Plt Count Lymph % (Auto) [place] % (Auto) [place] # Baso # Seg Neutrophils % Seg Neuts % (Manual) Lymphocytes % (Manual) Monocytes % (Manual) Seg Neutrophils # Seg Neutrophils # Man Lymphocytes # (Manual) Monocytes # (Manual) Eosinophils # (Manual) Basophils # (Manual) PT INR APTT ABG pH ABG pO2 ABG HCO3 ABG O2 Saturation ABG Base Excess ABG Hemoglobin Oxyhemoglobin Sodium Potassium Chloride Carbon Dioxide BUN Creatinine Glucose POC Glucose 116 H Lactic Acid Calcium Ionized Calcium Phosphorus Magnesium Total Bilirubin AST ALT Alkaline Phosphatase Ammonia Total Creatine Kinase CK-MB (CK-2) CK-MB (CK-2) Rel Index Total Protein Albumin Urine WBC (Auto) Vancomycin Trough 33.8 H Salicylates Acetaminophen Plasma/Serum Alcohol Crossmatch 12/21/19 12/21/19 12/21/19 14:54 17:27 23:49 WBC RBC Hgb Hct MCH RDW Plt Count Lymph % (Auto) [place] % (Auto) [place] # Baso # Seg Neutrophils % Seg Neuts % (Manual) Lymphocytes % (Manual) Monocytes % (Manual) Seg Neutrophils # Seg Neutrophils # Man Lymphocytes # (Manual) Monocytes # (Manual) Eosinophils # (Manual) Basophils # (Manual) PT INR APTT ABG pH ABG pO2 ABG HCO3 ABG O2 Saturation ABG Base Excess ABG Hemoglobin Oxyhemoglobin Sodium Potassium Chloride Carbon Dioxide BUN Creatinine Glucose POC Glucose 145 H 127 H Lactic Acid Calcium Ionized Calcium Phosphorus Magnesium Total Bilirubin AST ALT Alkaline Phosphatase Ammonia Total Creatine Kinase CK-MB (CK-2) CK-MB (CK-2) Rel Index Total Protein Albumin Urine WBC (Auto) Vancomycin Trough Salicylates Acetaminophen Plasma/Serum Alcohol Crossmatch See Detail 12/22/19 12/22/19 12/22/19 04:43 05:56 08:40 WBC RBC Hgb Hct MCH RDW Plt Count Lymph % (Auto) [place] % (Auto) [place] # Baso # Seg Neutrophils % Seg Neuts % (Manual) Lymphocytes % (Manual) Monocytes % (Manual) Seg Neutrophils # Seg Neutrophils # Man Lymphocytes # (Manual) Monocytes # (Manual) Eosinophils # (Manual) Basophils # (Manual) PT INR APTT ABG pH ABG pO2 75.6 L ABG HCO3 ABG O2 Saturation ABG Base Excess -2.6 L ABG Hemoglobin 6.8 L Oxyhemoglobin 94.6 L Sodium Potassium Chloride Carbon Dioxide 17 L BUN 60 H Creatinine 1.4 H Glucose 126 H POC Glucose 153 H Lactic Acid Calcium Ionized Calcium Phosphorus Magnesium Total Bilirubin AST ALT Alkaline Phosphatase Ammonia Total Creatine Kinase CK-MB (CK-2) CK-MB (CK-2) Rel Index Total Protein Albumin Urine WBC (Auto) Vancomycin Trough Salicylates Acetaminophen Plasma/Serum Alcohol Crossmatch 12/22/19 12/22/19 12/23/19 12:07 17:49 04:30 WBC 22.4 H RBC 2.68 L Hgb 7.6 L Hct 22.9 L MCH RDW 19.9 H Plt Count 998 H Lymph % (Auto) [place] % (Auto) [place] # Baso # Seg Neutrophils % Seg Neuts % (Manual) 88.0 H Lymphocytes % (Manual) 2.0 L Monocytes % (Manual) 9.0 H Seg Neutrophils # Seg Neutrophils # Man 19.7 H Lymphocytes # (Manual) 0.4 L Monocytes # (Manual) 2.0 H Eosinophils # (Manual) Basophils # (Manual) PT INR APTT ABG pH ABG pO2 ABG HCO3 ABG O2 Saturation ABG Base Excess ABG Hemoglobin Oxyhemoglobin Sodium Potassium Chloride Carbon Dioxide BUN Creatinine Glucose POC Glucose 140 H 116 H Lactic Acid Calcium Ionized Calcium Phosphorus Magnesium Total Bilirubin AST ALT Alkaline Phosphatase Ammonia Total Creatine Kinase CK-MB (CK-2) CK-MB (CK-2) Rel Index Total Protein Albumin Urine WBC (Auto) Vancomycin Trough Salicylates Acetaminophen Plasma/Serum Alcohol Crossmatch 12/23/19 12/23/19 12/23/19 04:30 12:00 18:06 WBC RBC Hgb Hct MCH RDW Plt Count Lymph % (Auto) [place] % (Auto) [place] # Baso # Seg Neutrophils % Seg Neuts % (Manual) Lymphocytes % (Manual) Monocytes % (Manual) Seg Neutrophils # Seg Neutrophils # Man Lymphocytes # (Manual) Monocytes # (Manual) Eosinophils # (Manual) Basophils # (Manual) PT INR APTT ABG pH ABG pO2 ABG HCO3 ABG O2 Saturation ABG Base Excess ABG Hemoglobin Oxyhemoglobin Sodium Potassium 5.2 H Chloride Carbon Dioxide 21 L BUN 69 H Creatinine 1.5 H Glucose 117 H POC Glucose 128 H 138 H Lactic Acid Calcium Ionized Calcium Phosphorus Magnesium Total Bilirubin AST ALT Alkaline Phosphatase Ammonia Total Creatine Kinase CK-MB (CK-2) CK-MB (CK-2) Rel Index Total Protein Albumin Urine WBC (Auto) Vancomycin Trough Salicylates Acetaminophen Plasma/Serum Alcohol Crossmatch 0412/24/19 12/24/19 23:46 04:31 05:08 WBC RBC Hgb Hct MCH RDW Plt Count Lymph % (Auto) [place] % (Auto) [place] # Baso # Seg Neutrophils % Seg Neuts % (Manual) Lymphocytes % (Manual) Monocytes % (Manual) Seg Neutrophils # Seg Neutrophils # Man Lymphocytes # (Manual) Monocytes # (Manual) Eosinophils # (Manual) Basophils # (Manual) PT INR APTT ABG pH ABG pO2 ABG HCO3 ABG O2 Saturation ABG Base Excess ABG Hemoglobin Oxyhemoglobin Sodium Potassium 5.3 H Chloride 107.6 H Carbon Dioxide 20 L BUN 72 H Creatinine 1.6 H Glucose 120 H POC Glucose 120 H 140 H Lactic Acid Calcium Ionized Calcium Phosphorus Magnesium Total Bilirubin AST ALT Alkaline Phosphatase Ammonia Total Creatine Kinase CK-MB (CK-2) CK-MB (CK-2) Rel Index Total Protein Albumin Urine WBC (Auto) Vancomycin Trough Salicylates Acetaminophen Plasma/Serum Alcohol Crossmatch 12/24/19 12/24/19 12/25/19 11:58 17:49 03:47 WBC 36.2 H RBC 2.92 L Hgb 8.4 L Hct 26.1 L MCH RDW 20.2 H Plt Count 942 H Lymph % (Auto) [place] % (Auto) [place] # Baso # Seg Neutrophils % Seg Neuts % (Manual) 97.5 H Lymphocytes % (Manual) 1.0 L Monocytes % (Manual) Seg Neutrophils # Seg Neutrophils # Man 35.3 H Lymphocytes # (Manual) 0.4 L Monocytes # (Manual) Eosinophils # (Manual) Basophils # (Manual) PT INR APTT ABG pH ABG pO2 ABG HCO3 ABG O2 Saturation ABG Base Excess ABG Hemoglobin Oxyhemoglobin Sodium Potassium Chloride Carbon Dioxide BUN Creatinine Glucose POC Glucose 146 H 131 H Lactic Acid Calcium Ionized Calcium Phosphorus Magnesium Total Bilirubin AST ALT Alkaline Phosphatase Ammonia Total Creatine Kinase CK-MB (CK-2) CK-MB (CK-2) Rel Index Total Protein Albumin Urine WBC (Auto) Vancomycin Trough Salicylates Acetaminophen Plasma/Serum Alcohol Crossmatch 12/25/19 12/25/19 12/25/19 03:47 05:30 12:23 WBC RBC Hgb Hct MCH RDW Plt Count Lymph % (Auto) [place] % (Auto) [place] # Baso # Seg Neutrophils % Seg Neuts % (Manual) Lymphocytes % (Manual) Monocytes % (Manual) Seg Neutrophils # Seg Neutrophils # Man Lymphocytes # (Manual) Monocytes # (Manual) Eosinophils # (Manual) Basophils # (Manual) PT INR APTT ABG pH ABG pO2 ABG HCO3 ABG O2 Saturation ABG Base Excess ABG Hemoglobin Oxyhemoglobin Sodium Potassium Chloride Carbon Dioxide 15 L BUN 70 H Creatinine 1.7 H Glucose 153 H POC Glucose 169 H 135 H Lactic Acid Calcium Ionized Calcium Phosphorus Magnesium Total Bilirubin AST ALT Alkaline Phosphatase Ammonia Total Creatine Kinase CK-MB (CK-2) CK-MB (CK-2) Rel Index Total Protein Albumin Urine WBC (Auto) Vancomycin Trough Salicylates Acetaminophen Plasma/Serum Alcohol Crossmatch 12/25/19 12/25/19 12/26/19 17:37 23:29 09:47 WBC 22.1 H RBC 2.83 L Hgb 7.9 L Hct 25.5 L MCH RDW 20.0 H Plt Count 894 H Lymph % (Auto) [place] % (Auto) [place] # Baso # Seg Neutrophils % Seg Neuts % (Manual) Lymphocytes % (Manual) Monocytes % (Manual) Seg Neutrophils # Seg Neutrophils # Man Lymphocytes # (Manual) Monocytes # (Manual) Eosinophils # (Manual) Basophils # (Manual) PT INR APTT ABG pH ABG pO2 ABG HCO3 ABG O2 Saturation ABG Base Excess ABG Hemoglobin Oxyhemoglobin Sodium Potassium Chloride Carbon Dioxide BUN Creatinine Glucose POC Glucose 120 H 140 H Lactic Acid Calcium Ionized Calcium Phosphorus Magnesium Total Bilirubin AST ALT Alkaline Phosphatase Ammonia Total Creatine Kinase CK-MB (CK-2) CK-MB (CK-2) Rel Index Total Protein Albumin Urine WBC (Auto) Vancomycin Trough Salicylates Acetaminophen Plasma/Serum Alcohol Crossmatch 12/26/19 12/26/19 12/26/19 09:47 11:46 17:52 WBC RBC Hgb Hct MCH RDW Plt Count Lymph % (Auto) [place] % (Auto) [place] # Baso # Seg Neutrophils % Seg Neuts % (Manual) Lymphocytes % (Manual) Monocytes % (Manual) Seg Neutrophils # Seg Neutrophils # Man Lymphocytes # (Manual) Monocytes # (Manual) Eosinophils # (Manual) Basophils # (Manual) PT INR APTT ABG pH ABG pO2 ABG HCO3 ABG O2 Saturation ABG Base Excess ABG Hemoglobin Oxyhemoglobin Sodium Potassium Chloride Carbon Dioxide 18 L BUN 65 H Creatinine 1.4 H Glucose 132 H POC Glucose 110 H 145 H Lactic Acid Calcium Ionized Calcium Phosphorus Magnesium Total Bilirubin AST ALT Alkaline Phosphatase Ammonia Total Creatine Kinase CK-MB (CK-2) CK-MB (CK-2) Rel Index Total Protein Albumin Urine WBC (Auto) Vancomycin Trough Salicylates Acetaminophen Plasma/Serum Alcohol Crossmatch 12/27/19 12/27/19 12/27/19 00:01 03:42 03:42 WBC 18.0 H RBC 2.86 L Hgb 8.0 L Hct 25.2 L MCH RDW 19.2 H Plt Count 873 H Lymph % (Auto) 8.4 L [place] % (Auto) 7.5 H [place] # 1.4 H Baso # 0.2 H Seg Neutrophils % 82.2 H Seg Neuts % (Manual) Lymphocytes % (Manual) Monocytes % (Manual) Seg Neutrophils # 14.8 H Seg Neutrophils # Man Lymphocytes # (Manual) Monocytes # (Manual) Eosinophils # (Manual) Basophils # (Manual) PT INR APTT ABG pH ABG pO2 ABG HCO3 ABG O2 Saturation ABG Base Excess ABG Hemoglobin Oxyhemoglobin Sodium Potassium Chloride Carbon Dioxide BUN 73 H Creatinine 1.4 H Glucose 119 H POC Glucose 124 H Lactic Acid Calcium Ionized Calcium Phosphorus Magnesium Total Bilirubin AST ALT Alkaline Phosphatase Ammonia Total Creatine Kinase CK-MB (CK-2) CK-MB (CK-2) Rel Index Total Protein Albumin Urine WBC (Auto) Vancomycin Trough Salicylates Acetaminophen Plasma/Serum Alcohol Crossmatch 12/27/19 12/27/19 12/27/19 05:45 11:45 17:29 WBC RBC Hgb Hct MCH RDW Plt Count Lymph % (Auto) [place] % (Auto) [place] # Baso # Seg Neutrophils % Seg Neuts % (Manual) Lymphocytes % (Manual) Monocytes % (Manual) Seg Neutrophils # Seg Neutrophils # Man Lymphocytes # (Manual) Monocytes # (Manual) Eosinophils # (Manual) Basophils # (Manual) PT INR APTT ABG pH ABG pO2 ABG HCO3 ABG O2 Saturation ABG Base Excess ABG Hemoglobin Oxyhemoglobin Sodium Potassium Chloride Carbon Dioxide BUN Creatinine Glucose POC Glucose 131 H 123 H 134 H Lactic Acid Calcium Ionized Calcium Phosphorus Magnesium Total Bilirubin AST ALT Alkaline Phosphatase Ammonia Total Creatine Kinase CK-MB (CK-2) CK-MB (CK-2) Rel Index Total Protein Albumin Urine WBC (Auto) Vancomycin Trough Salicylates Acetaminophen Plasma/Serum Alcohol Crossmatch 12/28/19 12/28/19 12/28/19 00:12 05:14 11:53 WBC RBC Hgb Hct MCH RDW Plt Count Lymph % (Auto) [place] % (Auto) [place] # Baso # Seg Neutrophils % Seg Neuts % (Manual) Lymphocytes % (Manual) Monocytes % (Manual) Seg Neutrophils # Seg Neutrophils # Man Lymphocytes # (Manual) Monocytes # (Manual) Eosinophils # (Manual) Basophils # (Manual) PT INR APTT ABG pH ABG pO2 ABG HCO3 ABG O2 Saturation ABG Base Excess ABG Hemoglobin Oxyhemoglobin Sodium Potassium Chloride Carbon Dioxide BUN Creatinine Glucose POC Glucose 138 H 130 H 146 H Lactic Acid Calcium Ionized Calcium Phosphorus Magnesium Total Bilirubin AST ALT Alkaline Phosphatase Ammonia Total Creatine Kinase CK-MB (CK-2) CK-MB (CK-2) Rel Index Total Protein Albumin Urine WBC (Auto) Vancomycin Trough Salicylates Acetaminophen Plasma/Serum Alcohol Crossmatch 12/28/19 12/29/19 12/29/19 17:39 00:01 18:11 WBC RBC Hgb Hct MCH RDW Plt Count Lymph % (Auto) [place] % (Auto) [place] # Baso # Seg Neutrophils % Seg Neuts % (Manual) Lymphocytes % (Manual) Monocytes % (Manual) Seg Neutrophils # Seg Neutrophils # Man Lymphocytes # (Manual) Monocytes # (Manual) Eosinophils # (Manual) Basophils # (Manual) PT INR APTT ABG pH ABG pO2 ABG HCO3 ABG O2 Saturation ABG Base Excess ABG Hemoglobin Oxyhemoglobin Sodium Potassium Chloride Carbon Dioxide BUN Creatinine Glucose POC Glucose 117 H 139 H 130 H Lactic Acid Calcium Ionized Calcium Phosphorus Magnesium Total Bilirubin AST ALT Alkaline Phosphatase Ammonia Total Creatine Kinase CK-MB (CK-2) CK-MB (CK-2) Rel Index Total Protein Albumin Urine WBC (Auto) Vancomycin Trough Salicylates Acetaminophen Plasma/Serum Alcohol Crossmatch 12/29/19 12/30/19 12/30/19 23:09 00:02 01:06 WBC 16.7 H RBC 2.91 L Hgb 8.2 L Hct 25.4 L MCH RDW 18.7 H Plt Count 708 H Lymph % (Auto) 9.4 L [place] % (Auto) [place] # 0.9 H Baso # Seg Neutrophils % 83.5 H Seg Neuts % (Manual) Lymphocytes % (Manual) Monocytes % (Manual) Seg Neutrophils # 14.0 H Seg Neutrophils # Man Lymphocytes # (Manual) Monocytes # (Manual) Eosinophils # (Manual) Basophils # (Manual) PT INR APTT ABG pH ABG pO2 ABG HCO3 ABG O2 Saturation ABG Base Excess ABG Hemoglobin Oxyhemoglobin Sodium Potassium Chloride Carbon Dioxide BUN Creatinine Glucose POC Glucose 120 H 114 H Lactic Acid Calcium Ionized Calcium Phosphorus Magnesium Total Bilirubin AST ALT Alkaline Phosphatase Ammonia Total Creatine Kinase CK-MB (CK-2) CK-MB (CK-2) Rel Index Total Protein Albumin Urine WBC (Auto) Vancomycin Trough Salicylates Acetaminophen Plasma/Serum Alcohol Crossmatch 12/30/19 12/30/19 12/30/19 01:06 04:23 05:18 WBC RBC Hgb Hct MCH RDW Plt Count Lymph % (Auto) [place] % (Auto) [place] # Baso # Seg Neutrophils % Seg Neuts % (Manual) Lymphocytes % (Manual) Monocytes % (Manual) Seg Neutrophils # Seg Neutrophils # Man Lymphocytes # (Manual) Monocytes # (Manual) Eosinophils # (Manual) Basophils # (Manual) PT INR APTT ABG pH ABG pO2 ABG HCO3 ABG O2 Saturation ABG Base Excess ABG Hemoglobin 8.3 L Oxyhemoglobin Sodium Potassium Chloride Carbon Dioxide BUN 70 H Creatinine Glucose 122 H POC Glucose 130 H Lactic Acid Calcium Ionized Calcium Phosphorus Magnesium Total Bilirubin AST ALT Alkaline Phosphatase Ammonia Total Creatine Kinase CK-MB (CK-2) CK-MB (CK-2) Rel Index Total Protein Albumin Urine WBC (Auto) Vancomycin Trough Salicylates Acetaminophen Plasma/Serum Alcohol Crossmatch 12/30/19 12/30/19 12/30/19 05:40 12:17 17:43 WBC RBC Hgb Hct MCH RDW Plt Count Lymph % (Auto) [place] % (Auto) [place] # Baso # Seg Neutrophils % Seg Neuts % (Manual) Lymphocytes % (Manual) Monocytes % (Manual) Seg Neutrophils # Seg Neutrophils # Man Lymphocytes # (Manual) Monocytes # (Manual) Eosinophils # (Manual) Basophils # (Manual) PT INR APTT ABG pH ABG pO2 ABG HCO3 ABG O2 Saturation ABG Base Excess ABG Hemoglobin Oxyhemoglobin Sodium Potassium Chloride Carbon Dioxide BUN Creatinine Glucose POC Glucose 135 H 132 H 118 H Lactic Acid Calcium Ionized Calcium Phosphorus Magnesium Total Bilirubin AST ALT Alkaline Phosphatase Ammonia Total Creatine Kinase CK-MB (CK-2) CK-MB (CK-2) Rel Index Total Protein Albumin Urine WBC (Auto) Vancomycin Trough Salicylates Acetaminophen Plasma/Serum Alcohol Crossmatch 12/30/19 12/31/19 12/31/19 23:29 05:19 17:50 WBC RBC Hgb Hct MCH RDW Plt Count Lymph % (Auto) [place] % (Auto) [place] # Baso # Seg Neutrophils % Seg Neuts % (Manual) Lymphocytes % (Manual) Monocytes % (Manual) Seg Neutrophils # Seg Neutrophils # Man Lymphocytes # (Manual) Monocytes # (Manual) Eosinophils # (Manual) Basophils # (Manual) PT INR APTT ABG pH ABG pO2 ABG HCO3 ABG O2 Saturation ABG Base Excess ABG Hemoglobin Oxyhemoglobin Sodium Potassium Chloride Carbon Dioxide BUN Creatinine Glucose POC Glucose 114 H 109 H 116 H Lactic Acid Calcium Ionized Calcium Phosphorus Magnesium Total Bilirubin AST ALT Alkaline Phosphatase Ammonia Total Creatine Kinase CK-MB (CK-2) CK-MB (CK-2) Rel Index Total Protein Albumin Urine WBC (Auto) Vancomycin Trough Salicylates Acetaminophen Plasma/Serum Alcohol Crossmatch 01/01/20 01/01/20 01/01/20 00:10 05:19 12:02 WBC RBC Hgb Hct MCH RDW Plt Count Lymph % (Auto) [place] % (Auto) [place] # Baso # Seg Neutrophils % Seg Neuts % (Manual) Lymphocytes % (Manual) Monocytes % (Manual) Seg Neutrophils # Seg Neutrophils # Man Lymphocytes # (Manual) Monocytes # (Manual) Eosinophils # (Manual) Basophils # (Manual) PT INR APTT ABG pH ABG pO2 ABG HCO3 ABG O2 Saturation ABG Base Excess ABG Hemoglobin Oxyhemoglobin Sodium Potassium Chloride Carbon Dioxide BUN Creatinine Glucose POC Glucose 131 H 122 H 136 H Lactic Acid Calcium Ionized Calcium Phosphorus Magnesium Total Bilirubin AST ALT Alkaline Phosphatase Ammonia Total Creatine Kinase CK-MB (CK-2) CK-MB (CK-2) Rel Index Total Protein Albumin Urine WBC (Auto) Vancomycin Trough Salicylates Acetaminophen Plasma/Serum Alcohol Crossmatch 01/02/20 01/02/20 01/02/20 00:24 05:36 11:41 WBC RBC Hgb Hct MCH RDW Plt Count Lymph % (Auto) [place] % (Auto) [place] # Baso # Seg Neutrophils % Seg Neuts % (Manual) Lymphocytes % (Manual) Monocytes % (Manual) Seg Neutrophils # Seg Neutrophils # Man Lymphocytes # (Manual) Monocytes # (Manual) Eosinophils # (Manual) Basophils # (Manual) PT INR APTT ABG pH ABG pO2 ABG HCO3 ABG O2 Saturation ABG Base Excess ABG Hemoglobin Oxyhemoglobin Sodium Potassium Chloride Carbon Dioxide BUN Creatinine Glucose POC Glucose 119 H 109 H 125 H Lactic Acid Calcium Ionized Calcium Phosphorus Magnesium Total Bilirubin AST ALT Alkaline Phosphatase Ammonia Total Creatine Kinase CK-MB (CK-2) CK-MB (CK-2) Rel Index Total Protein Albumin Urine WBC (Auto) Vancomycin Trough Salicylates Acetaminophen Plasma/Serum Alcohol Crossmatch 01/02/20 01/03/20 01/03/20 17:49 05:29 12:13 WBC RBC Hgb Hct MCH RDW Plt Count Lymph % (Auto) [place] % (Auto) [place] # Baso # Seg Neutrophils % Seg Neuts % (Manual) Lymphocytes % (Manual) Monocytes % (Manual) Seg Neutrophils # Seg Neutrophils # Man Lymphocytes # (Manual) Monocytes # (Manual) Eosinophils # (Manual) Basophils # (Manual) PT INR APTT ABG pH ABG pO2 ABG HCO3 ABG O2 Saturation ABG Base Excess ABG Hemoglobin Oxyhemoglobin Sodium Potassium Chloride Carbon Dioxide BUN Creatinine Glucose POC Glucose 130 H 132 H 113 H Lactic Acid Calcium Ionized Calcium Phosphorus Magnesium Total Bilirubin AST ALT Alkaline Phosphatase Ammonia Total Creatine Kinase CK-MB (CK-2) CK-MB (CK-2) Rel Index Total Protein Albumin Urine WBC (Auto) Vancomycin Trough Salicylates Acetaminophen Plasma/Serum Alcohol Crossmatch 01/03/20 01/04/20 01/04/20 17:32 00:19 05:26 WBC RBC Hgb Hct MCH RDW Plt Count Lymph % (Auto) [place] % (Auto) [place] # Baso # Seg Neutrophils % Seg Neuts % (Manual) Lymphocytes % (Manual) Monocytes % (Manual) Seg Neutrophils # Seg Neutrophils # Man Lymphocytes # (Manual) Monocytes # (Manual) Eosinophils # (Manual) Basophils # (Manual) PT INR APTT ABG pH ABG pO2 ABG HCO3 ABG O2 Saturation ABG Base Excess ABG Hemoglobin Oxyhemoglobin Sodium Potassium Chloride Carbon Dioxide BUN Creatinine Glucose POC Glucose 127 H 141 H 129 H Lactic Acid Calcium Ionized Calcium Phosphorus Magnesium Total Bilirubin AST ALT Alkaline Phosphatase Ammonia Total Creatine Kinase CK-MB (CK-2) CK-MB (CK-2) Rel Index Total Protein Albumin Urine WBC (Auto) Vancomycin Trough Salicylates Acetaminophen Plasma/Serum Alcohol Crossmatch 01/04/20 01/04/2020 11:39 17:29 05:22 WBC RBC Hgb Hct MCH RDW Plt Count Lymph % (Auto) [place] % (Auto) [place] # Baso # Seg Neutrophils % Seg Neuts % (Manual) Lymphocytes % (Manual) Monocytes % (Manual) Seg Neutrophils # Seg Neutrophils # Man Lymphocytes # (Manual) Monocytes # (Manual) Eosinophils # (Manual) Basophils # (Manual) PT INR APTT ABG pH ABG pO2 ABG HCO3 ABG O2 Saturation ABG Base Excess ABG Hemoglobin Oxyhemoglobin Sodium Potassium Chloride Carbon Dioxide BUN Creatinine Glucose POC Glucose 167 H 132 H 121 H Lactic Acid Calcium Ionized Calcium Phosphorus Magnesium Total Bilirubin AST ALT Alkaline Phosphatase Ammonia Total Creatine Kinase CK-MB (CK-2) CK-MB (CK-2) Rel Index Total Protein Albumin Urine WBC (Auto) Vancomycin Trough Salicylates Acetaminophen Plasma/Serum Alcohol Crossmatch 01/05/20 01/05/20 01/05/20 12:25 17:40 18:06 WBC RBC Hgb Hct MCH RDW Plt Count Lymph % (Auto) [place] % (Auto) [place] # Baso # Seg Neutrophils % Seg Neuts % (Manual) Lymphocytes % (Manual) Monocytes % (Manual) Seg Neutrophils # Seg Neutrophils # Man Lymphocytes # (Manual) Monocytes # (Manual) Eosinophils # (Manual) Basophils # (Manual) PT INR APTT ABG pH 7.472 H ABG pO2 99.2 H ABG HCO3 ABG O2 Saturation ABG Base Excess ABG Hemoglobin 7.8 L Oxyhemoglobin Sodium Potassium Chloride Carbon Dioxide BUN Creatinine Glucose POC Glucose 106 H 110 H Lactic Acid Calcium Ionized Calcium Phosphorus Magnesium Total Bilirubin AST ALT Alkaline Phosphatase Ammonia Total Creatine Kinase CK-MB (CK-2) CK-MB (CK-2) Rel Index Total Protein Albumin Urine WBC (Auto) Vancomycin Trough Salicylates Acetaminophen Plasma/Serum Alcohol Crossmatch 01/06/20 01/06/20 01/06/20 00:11 05:16 11:30 WBC RBC Hgb Hct MCH RDW Plt Count Lymph % (Auto) [place] % (Auto) [place] # Baso # Seg Neutrophils % Seg Neuts % (Manual) Lymphocytes % (Manual) Monocytes % (Manual) Seg Neutrophils # Seg Neutrophils # Man Lymphocytes # (Manual) Monocytes # (Manual) Eosinophils # (Manual) Basophils # (Manual) PT INR APTT ABG pH ABG pO2 ABG HCO3 ABG O2 Saturation ABG Base Excess ABG Hemoglobin Oxyhemoglobin Sodium Potassium Chloride Carbon Dioxide BUN Creatinine Glucose POC Glucose 108 H 124 H 125 H Lactic Acid Calcium Ionized Calcium Phosphorus Magnesium Total Bilirubin AST ALT Alkaline Phosphatase Ammonia Total Creatine Kinase CK-MB (CK-2) CK-MB (CK-2) Rel Index Total Protein Albumin Urine WBC (Auto) Vancomycin Trough Salicylates Acetaminophen Plasma/Serum Alcohol Crossmatch 01/06/20 01/06/20 01/07/20 17:53 23:51 04:12 WBC 16.5 H RBC 3.29 L Hgb 9.3 L Hct 28.1 L MCH RDW 18.2 H Plt Count 526 H Lymph % (Auto) 8.4 L [place] % (Auto) [place] # 1.0 H Baso # Seg Neutrophils % 84.4 H Seg Neuts % (Manual) Lymphocytes % (Manual) Monocytes % (Manual) Seg Neutrophils # 13.9 H Seg Neutrophils # Man Lymphocytes # (Manual) Monocytes # (Manual) Eosinophils # (Manual) Basophils # (Manual) PT INR APTT ABG pH ABG pO2 ABG HCO3 ABG O2 Saturation ABG Base Excess ABG Hemoglobin Oxyhemoglobin Sodium Potassium Chloride Carbon Dioxide BUN Creatinine Glucose POC Glucose 166 H 128 H Lactic Acid Calcium Ionized Calcium Phosphorus Magnesium Total Bilirubin AST ALT Alkaline Phosphatase Ammonia Total Creatine Kinase CK-MB (CK-2) CK-MB (CK-2) Rel Index Total Protein Albumin Urine WBC (Auto) Vancomycin Trough Salicylates Acetaminophen Plasma/Serum Alcohol Crossmatch 01/07/20 01/07/20 01/07/20 04:12 04:45 11:51 WBC RBC Hgb Hct MCH RDW Plt Count Lymph % (Auto) [place] % (Auto) [place] # Baso # Seg Neutrophils % Seg Neuts % (Manual) Lymphocytes % (Manual) Monocytes % (Manual) Seg Neutrophils # Seg Neutrophils # Man Lymphocytes # (Manual) Monocytes # (Manual) Eosinophils # (Manual) Basophils # (Manual) PT INR APTT ABG pH ABG pO2 ABG HCO3 ABG O2 Saturation ABG Base Excess ABG Hemoglobin Oxyhemoglobin Sodium 136 L Potassium Chloride Carbon Dioxide 21 L BUN 44 H Creatinine 0.6 L Glucose 124 H POC Glucose 134 H 138 H Lactic Acid Calcium Ionized Calcium Phosphorus Magnesium Total Bilirubin AST ALT Alkaline Phosphatase Ammonia Total Creatine Kinase CK-MB (CK-2) CK-MB (CK-2) Rel Index Total Protein Albumin Urine WBC (Auto) Vancomycin Trough Salicylates Acetaminophen Plasma/Serum Alcohol Crossmatch 01/07/20 01/08/20 01/08/20 17:36 00:33 05:29 WBC RBC Hgb Hct MCH RDW Plt Count Lymph % (Auto) [place] % (Auto) [place] # Baso # Seg Neutrophils % Seg Neuts % (Manual) Lymphocytes % (Manual) Monocytes % (Manual) Seg Neutrophils # Seg Neutrophils # Man Lymphocytes # (Manual) Monocytes # (Manual) Eosinophils # (Manual) Basophils # (Manual) PT INR APTT ABG pH ABG pO2 ABG HCO3 ABG O2 Saturation ABG Base Excess ABG Hemoglobin Oxyhemoglobin Sodium Potassium Chloride Carbon Dioxide BUN Creatinine Glucose POC Glucose 128 H 119 H 124 H Lactic Acid Calcium Ionized Calcium Phosphorus Magnesium Total Bilirubin AST ALT Alkaline Phosphatase Ammonia Total Creatine Kinase CK-MB (CK-2) CK-MB (CK-2) Rel Index Total Protein Albumin Urine WBC (Auto) Vancomycin Trough Salicylates Acetaminophen Plasma/Serum Alcohol Crossmatch 01/08/20 01/08/20 01/08/20 12:51 20:25 23:22 WBC RBC Hgb Hct MCH RDW Plt Count Lymph % (Auto) [place] % (Auto) [place] # Baso # Seg Neutrophils % Seg Neuts % (Manual) Lymphocytes % (Manual) Monocytes % (Manual) Seg Neutrophils # Seg Neutrophils # Man Lymphocytes # (Manual) Monocytes # (Manual) Eosinophils # (Manual) Basophils # (Manual) PT INR APTT ABG pH ABG pO2 132.2 H ABG HCO3 ABG O2 Saturation ABG Base Excess ABG Hemoglobin Oxyhemoglobin Sodium Potassium Chloride Carbon Dioxide BUN Creatinine Glucose POC Glucose 128 H 127 H Lactic Acid Calcium Ionized Calcium Phosphorus Magnesium Total Bilirubin AST ALT Alkaline Phosphatase Ammonia Total Creatine Kinase CK-MB (CK-2) CK-MB (CK-2) Rel Index Total Protein Albumin Urine WBC (Auto) Vancomycin Trough Salicylates Acetaminophen Plasma/Serum Alcohol Crossmatch 01/09/20 01/09/20 01/09/20 05:48 08:51 11:29 WBC RBC Hgb Hct MCH RDW Plt Count Lymph % (Auto) [place] % (Auto) [place] # Baso # Seg Neutrophils % Seg Neuts % (Manual) Lymphocytes % (Manual) Monocytes % (Manual) Seg Neutrophils # Seg Neutrophils # Man Lymphocytes # (Manual) Monocytes # (Manual) Eosinophils # (Manual) Basophils # (Manual) PT INR APTT ABG pH ABG pO2 94.3 H ABG HCO3 ABG O2 Saturation ABG Base Excess ABG Hemoglobin 9.5 L Oxyhemoglobin Sodium Potassium Chloride Carbon Dioxide BUN Creatinine Glucose POC Glucose 120 H 112 H Lactic Acid Calcium Ionized Calcium Phosphorus Magnesium Total Bilirubin AST ALT Alkaline Phosphatase Ammonia Total Creatine Kinase CK-MB (CK-2) CK-MB (CK-2) Rel Index Total Protein Albumin Urine WBC (Auto) Vancomycin Trough Salicylates Acetaminophen Plasma/Serum Alcohol Crossmatch 01/09/20 01/10/20 01/10/20 17:57 05:17 12:28 WBC RBC Hgb Hct MCH RDW Plt Count Lymph % (Auto) [place] % (Auto) [place] # Baso # Seg Neutrophils % Seg Neuts % (Manual) Lymphocytes % (Manual) Monocytes % (Manual) Seg Neutrophils # Seg Neutrophils # Man Lymphocytes # (Manual) Monocytes # (Manual) Eosinophils # (Manual) Basophils # (Manual) PT INR APTT ABG pH ABG pO2 ABG HCO3 ABG O2 Saturation ABG Base Excess ABG Hemoglobin Oxyhemoglobin Sodium Potassium Chloride Carbon Dioxide BUN Creatinine Glucose POC Glucose 122 H 115 H 116 H Lactic Acid Calcium Ionized Calcium Phosphorus Magnesium Total Bilirubin AST ALT Alkaline Phosphatase Ammonia Total Creatine Kinase CK-MB (CK-2) CK-MB (CK-2) Rel Index Total Protein Albumin Urine WBC (Auto) Vancomycin Trough Salicylates Acetaminophen Plasma/Serum Alcohol Crossmatch 01/10/20 01/10/20 01/11/20 18:25 23:47 06:05 WBC RBC Hgb Hct MCH RDW Plt Count Lymph % (Auto) [place] % (Auto) [place] # Baso # Seg Neutrophils % Seg Neuts % (Manual) Lymphocytes % (Manual) Monocytes % (Manual) Seg Neutrophils # Seg Neutrophils # Man Lymphocytes # (Manual) Monocytes # (Manual) Eosinophils # (Manual) Basophils # (Manual) PT INR APTT ABG pH ABG pO2 ABG HCO3 ABG O2 Saturation ABG Base Excess ABG Hemoglobin Oxyhemoglobin Sodium Potassium Chloride Carbon Dioxide BUN Creatinine Glucose POC Glucose 123 H 115 H 151 H Lactic Acid Calcium Ionized Calcium Phosphorus Magnesium Total Bilirubin AST ALT Alkaline Phosphatase Ammonia Total Creatine Kinase CK-MB (CK-2) CK-MB (CK-2) Rel Index Total Protein Albumin Urine WBC (Auto) Vancomycin Trough Salicylates Acetaminophen Plasma/Serum Alcohol Crossmatch 01/11/20 01/11/20 01/11/20 07:00 07:00 12:27 WBC 11.8 H RBC 3.40 L Hgb 9.4 L Hct 29.3 L MCH RDW 18.1 H Plt Count 549 H Lymph % (Auto) [place] % (Auto) 9.1 H [place] # 1.1 H Baso # Seg Neutrophils % 73.3 H Seg Neuts % (Manual) Lymphocytes % (Manual) Monocytes % (Manual) Seg Neutrophils # 8.7 H Seg Neutrophils # Man Lymphocytes # (Manual) Monocytes # (Manual) Eosinophils # (Manual) Basophils # (Manual) PT INR APTT ABG pH ABG pO2 ABG HCO3 ABG O2 Saturation ABG Base Excess ABG Hemoglobin Oxyhemoglobin Sodium 134 L Potassium Chloride 97.7 L Carbon Dioxide 21 L BUN 38 H Creatinine 0.5 L Glucose 168 H POC Glucose 117 H Lactic Acid Calcium 10.5 H Ionized Calcium Phosphorus Magnesium Total Bilirubin AST ALT Alkaline Phosphatase Ammonia Total Creatine Kinase CK-MB (CK-2) CK-MB (CK-2) Rel Index Total Protein Albumin Urine WBC (Auto) Vancomycin Trough Salicylates Acetaminophen Plasma/Serum Alcohol Crossmatch 01/11/20 01/12/20 01/12/20 18:19 00:53 05:24 WBC RBC Hgb Hct MCH RDW Plt Count Lymph % (Auto) [place] % (Auto) [place] # Baso # Seg Neutrophils % Seg Neuts % (Manual) Lymphocytes % (Manual) Monocytes % (Manual) Seg Neutrophils # Seg Neutrophils # Man Lymphocytes # (Manual) Monocytes # (Manual) Eosinophils # (Manual) Basophils # (Manual) PT INR APTT ABG pH ABG pO2 ABG HCO3 ABG O2 Saturation ABG Base Excess ABG Hemoglobin Oxyhemoglobin Sodium Potassium Chloride Carbon Dioxide BUN Creatinine Glucose POC Glucose 126 H 126 H 128 H Lactic Acid Calcium Ionized Calcium Phosphorus Magnesium Total Bilirubin AST ALT Alkaline Phosphatase Ammonia Total Creatine Kinase CK-MB (CK-2) CK-MB (CK-2) Rel Index Total Protein Albumin Urine WBC (Auto) Vancomycin Trough Salicylates Acetaminophen Plasma/Serum Alcohol Crossmatch 01/12/20 13:39 WBC RBC Hgb Hct MCH RDW Plt Count Lymph % (Auto) [place] % (Auto) [place] # Baso # Seg Neutrophils % Seg Neuts % (Manual) Lymphocytes % (Manual) Monocytes % (Manual) Seg Neutrophils # Seg Neutrophils # Man Lymphocytes # (Manual) Monocytes # (Manual) Eosinophils # (Manual) Basophils # (Manual) PT INR APTT ABG pH ABG pO2 ABG HCO3 ABG O2 Saturation ABG Base Excess ABG Hemoglobin Oxyhemoglobin Sodium Potassium Chloride Carbon Dioxide BUN Creatinine Glucose POC Glucose 146 H Lactic Acid Calcium Ionized Calcium Phosphorus Magnesium Total Bilirubin AST ALT Alkaline Phosphatase Ammonia Total Creatine Kinase CK-MB (CK-2) CK-MB (CK-2) Rel Index Total Protein Albumin Urine WBC (Auto) Vancomycin Trough Salicylates Acetaminophen Plasma/Serum Alcohol Crossmatch Chest x-ray: image reviewed Allied health notes reviewed: RT
[2020-01-12] MEDS: QUEtiapine 100 MG TAB FEEDTUBE SCH (21:10)
[2020-01-12] MEDS: MORPHINE 2 MG/1 ML INJ IV PRN (21:11)
--- NOTE | 2020-01-13 09:02 | Progress Note ---
Assessment and Plan Assessment and plan: -Acute Respiratory failure s/p intubation, s/p trach and PEG on 12/12 on T-piece CTA chest negative for PE, Echo diastolic dysfunction --Anoxic brain injury: suspected CT head: No acute abnormality. neurology consult placed, EEG ordered showed Generalized slowing. No seizures or epileptiform activity. Per neurology : Patient found to have intact corneal/VOR/cough reflexes, and is withdrawing lower extremities, therefore patient is not found to be brain . However, given that patient had an out of hospital cardiac arrest, the time of which is uncertain, the likelihood of meaningful neurological recovery is somewhat low. Patient now opening her eyes and able to follow any command by nodding head --Anemia, microcytic Status post 3 units PRBC transfusion, H&H low stable --Acute metabolic encephalopathy/toxic encephalopathy stable --Hyperammonemia -resolved --Metabolic Acidosis: Improved --Transaminitis; resolved --Leucocytosis with sepsis Source MRSA bacteremia and MSSA pneumonia. UA showed pyuria. RUQ US showed no ascites. Repeat TTE negative for vegetation. Completed 7 days of Ceftriaxone on 11/29/2019. Treated with Abx vancomycin 1 gm IV q 12 hour total 2 week till 12/30/2019 --MSSA pneumonia: Status post vancomycin till 12/30/2019 --ALcohol USe Disorder; Supportive care --Seizure disorder: Seizure precautions , continue Keppra --H. Influenzae, tracheobronchitis, treated with abx --DNR CODE STATUS --Discharge planning ; social and financial issues Case management assisting poor prognosis 12/31/19: still intubated via trach, no restraints needed, FiO2 30%, PEEP 6, Difficulty getting to Hospice, mother wants to kept updated. Patient has 4 kids, 2 sons in custodial, 1 son is transgender and not involved per mother; Daughter is Deborah who is NOK 01/01/20: Still intubated, but patient opening her eyes but does not follow any command. Unable to set up inpatient hospice 01/01 pending placement, patient is self funded 01/02 pending placement, patient is self funded 01/03 pending placement, patient is self funded. still on vent. updated patient's mother 01/04 pending placement, patient is self funded. still on vent. 01/05 pending placement, patient is tolerating T-piece trial today -off vent. 01/06 patient getting T-piece trial daily, need placement. Patient is unfunded 01/08: Pt opened for 24 hours and tolerating T-piece with 8 L O2. Patient is unfunded and unable to find a placement. Family is refusing to accept the patient at home with home hospice. 01/09: daytime T-piece trials as tolerated and continue to rest on AC for now. pending placement 01/10; remains on ventilatory support DNR, for placement 01/11: Clinically stable, tracheostomy on T-piece, DC planning / placement 01/12: Clinically no change, awaiting placement The high probability of a clinically significant, sudden or life threatening deterioration of the [neurology,respiratory] system(s) required my full and direct attention, intervention and personal management. The aggregate critical care time was [31] minutes. This time is in addition to time spent performing reported procedures but includes the following: [x] Data Review and interpretation [x] Patient assessment and monitoring of vital signs [x] Documentation [x] Medication orders and management Disposition: prognosis guarded. Family okay for DNR, placement pending History Interval history: Patient seen and examined at the bedside today Patient is alert and awake noncommunicative Tracheostomy on T-piece, saturating well Mild distress Vital signs reviewed Hospitalist Physical - Constitutional Vitals: Temp Pulse Resp BP Pulse Ox 98.4 F 113 H 27 H 127/87 100 01/13/20 03:56 01/13/20 07:01 01/13/20 07:01 01/13/20 07:01 01/13/20 07:01 General appearance: Present: mild distress, cachectic, disheveled, other (Tracheostomy on T-piece) - EENT Eyes: Present: PERRL, EOM intact - Neck Neck: Present: supple, normal ROM, other (Tracheostomy on T-piece) - Respiratory Respiratory effort: normal Respiratory: bilateral: diminished, rhonchi, negative: rales, wheezing - Cardiovascular Rhythm: regular Heart Sounds: Present: S1 & S2 - Extremities Extremities: no ischemia, No edema - Abdominal General gastrointestinal: soft, non-tender, non-distended, normal bowel sounds - Integumentary Integumentary: Present: clear, warm - Psychiatric Psychiatric: appropriate mood/affect, other - Neurologic Neurologic: other (Noncommunicative noncommunicative) Results - Labs CBC & Chem 7: 01/11/20 07:00 01/11/20 07:00 Labs: Laboratory Last Values WBC 11.8 K/mm3 (4.5-11.0) H 01/11/20 07:00 RBC 3.40 M/mm3 (3.65-5.03) L 01/11/20 07:00 Hgb 9.4 gm/dl (10.1-14.3) L 01/11/20 07:00 Hct 29.3 % (30.3-42.9) L 01/11/20 07:00 MCV 86 fl (79-97) 01/11/20 07:00 MCH 28 pg (28-32) 01/11/20 07:00 MCHC 32 % (30-34) 01/11/20 07:00 RDW 18.1 % (13.2-15.2) H 01/11/20 07:00 Plt Count 549 K/mm3 (140-440) H 01/11/20 07:00 Lymph % (Auto) 14.8 % (13.4-35.0) 01/11/20 07:00 [place] % (Auto) 9.1 % (0.0-7.3) H 01/11/20 07:00 Eos % (Auto) 2.1 % (0.0-4.3) 01/11/20 07:00 Baso % (Auto) 0.7 % (0.0-1.8) 01/11/20 07:00 Lymph # 1.8 K/mm3 (1.2-5.4) 01/11/20 07:00 [place] # 1.1 K/mm3 (0.0-0.8) H 01/11/20 07:00 Eos # 0.2 K/mm3 (0.0-0.4) 01/11/20 07:00 Baso # 0.1 K/mm3 (0.0-0.1) 01/11/20 07:00 Add Manual Diff Complete 12/25/19 03:47 Total Counted 200 12/25/19 03:47 Seg Neutrophils % 73.3 % (40.0-70.0) H 01/11/20 07:00 Seg Neuts % (Manual) 97.5 % (40.0-70.0) H 12/25/19 03:47 Band Neutrophils % 0 % 12/25/19 03:47 Lymphocytes % (Manual) 1.0 % (13.4-35.0) L 12/25/19 03:47 Reactive Lymphs % (Man) 0 % 12/25/19 03:47 Monocytes % (Manual) 1.5 % (0.0-7.3) 12/25/19 03:47 Eosinophils % (Manual) 0 % (0.0-4.3) 12/25/19 03:47 Basophils % (Manual) 0 % (0.0-1.8) 12/25/19 03:47 Metamyelocytes % 0 % 12/25/19 03:47 Myelocytes % 0 % 12/25/19 03:47 Promyelocytes % 0 % 12/25/19 03:47 Blast Cells % 0 % 12/25/19 03:47 Nucleated RBC % Not Reportable 12/25/19 03:47 Seg Neutrophils # 8.7 K/mm3 (1.8-7.7) H 01/11/20 07:00 Seg Neutrophils # Man 35.3 K/mm3 (1.8-7.7) H 12/25/19 03:47 Band Neutrophils # 0.0 K/mm3 12/25/19 03:47 Lymphocytes # (Manual) 0.4 K/mm3 (1.2-5.4) L 12/25/19 03:47 Abs React Lymphs (Man) 0.0 K/mm3 12/25/19 03:47 Monocytes # (Manual) 0.5 K/mm3 (0.0-0.8) 12/25/19 03:47 Eosinophils # (Manual) 0.0 K/mm3 (0.0-0.4) 12/25/19 03:47 Basophils # (Manual) 0.0 K/mm3 (0.0-0.1) 12/25/19 03:47 Metamyelocytes # 0.0 K/mm3 12/25/19 03:47 Myelocytes # 0.0 K/mm3 12/25/19 03:47 Promyelocytes # 0.0 K/mm3 12/25/19 03:47 Blast Cells # 0.0 K/mm3 12/25/19 03:47 Pathologist Review 12/13/19 07:48 WBC Morphology Not Reportable 12/25/19 03:47 Hypersegmented Neuts Not Reportable 12/25/19 03:47 Hyposegmented Neuts Not Reportable 12/25/19 03:47 Hypogranular Neuts Not Reportable 12/25/19 03:47 Smudge Cells Not Reportable 12/25/19 03:47 Toxic Granulation Not Reportable 12/25/19 03:47 Toxic Vacuolation Not Reportable 12/25/19 03:47 Dohle Bodies Not Reportable 12/25/19 03:47 Pelger-Huet Anomaly Not Reportable 12/25/19 03:47 Dominique Rods Not Reportable 12/25/19 03:47 Platelet Estimate Consistent w auto 12/25/19 03:47 Clumped Platelets Not Reportable 12/25/19 03:47 Plt Clumps, EDTA Not Reportable 12/25/19 03:47 Large Platelets Not Reportable 12/25/19 03:47 Giant Platelets Not Reportable 12/25/19 03:47 Platelet Satelliting Not Reportable 12/25/19 03:47 Plt Morphology Comment Not Reportable 12/25/19 03:47 RBC Morphology Not Reportable 12/25/19 03:47 Dimorphic RBCs Not Reportable 12/25/19 03:47 Polychromasia Not Reportable 12/25/19 03:47 Hypochromasia Not Reportable 12/25/19 03:47 Poikilocytosis Not Reportable 12/25/19 03:47 Anisocytosis 1+ 12/25/19 03:47 Microcytosis Not Reportable 12/25/19 03:47 Macrocytosis Not Reportable 12/25/19 03:47 Spherocytes Not Reportable 12/25/19 03:47 Pappenheimer Bodies Not Reportable 12/25/19 03:47 Sickle Cells Not Reportable 12/25/19 03:47 Target Cells Not Reportable 12/25/19 03:47 Tear Drop Cells Not Reportable 12/25/19 03:47 Ovalocytes Not Reportable 12/25/19 03:47 Helmet Cells Not Reportable 12/25/19 03:47 [place] Bodies Not Reportable 12/25/19 03:47 [place] Rings Not Reportable 12/25/19 03:47 Jamshid Cells Not Reportable 12/25/19 03:47 Bite Cells Not Reportable 12/25/19 03:47 Crenated Cell Not Reportable 12/25/19 03:47 Elliptocytes Not Reportable 12/25/19 03:47 Acanthocytes (Spur) Not Reportable 12/25/19 03:47 Rouleaux Not Reportable 12/25/19 03:47 Hemoglobin C Crystals Not Reportable 12/25/19 03:47 Schistocytes Not Reportable 12/25/19 03:47 Malaria parasites Not Reportable 12/25/19 03:47 Gregg Bodies Not Reportable 12/25/19 03:47 Hem Pathologist Commnt No 12/25/19 03:47 PT 17.0 Sec. (12.2-14.9) H 11/23/19 03:47 INR 1.36 (0.87-1.13) H 11/23/19 03:47 APTT 128.2 Sec. (24.2-36.6) H* 11/23/19 03:47 Heparin Anti-Xa Level 0.31 U.I./ml (0.3-0.7) 11/23/19 09:03 ABG pH 7.429 pH Units (7.350-7.450) 01/09/20 08:51 ABG pCO2 39.1 mm Hg 01/09/20 08:51 ABG pO2 94.3 mm Hg (80.0-90.0) H 01/09/20 08:51 ABG HCO3 25.3 mmol/L (20.0-26.0) 01/09/20 08:51 ABG O2 Saturation 97.4 % (95.0-99.0) 01/09/20 08:51 ABG O2 Content 12.9 (0.0-44) 01/09/20 08:51 ABG Base Excess 1.0 mmol/L (-2.0-3.0) 01/09/20 08:51 ABG Hemoglobin 9.5 gm/dl (12.0-16.0) L 01/09/20 08:51 ABG Carboxyhemoglobin 1.3 % (0.0-5.0) 01/09/20 08:51 ABG Methemoglobin 0.4 % (0.0-1.5) 01/09/20 08:51 Oxyhemoglobin 95.7 % (95.0-99.0) 01/09/20 08:51 FiO2 35 % 01/09/20 08:51 Sodium 134 mmol/L (137-145) L 01/11/20 07:00 Potassium 4.1 mmol/L (3.6-5.0) 01/11/20 07:00 Chloride 97.7 mmol/L (98-107) L 01/11/20 07:00 Carbon Dioxide 21 mmol/L (22-30) L 01/11/20 07:00 Anion Gap 19 mmol/L 01/11/20 07:00 BUN 38 mg/dL (7-17) H 01/11/20 07:00 Creatinine 0.5 mg/dL (0.7-1.2) L 01/11/20 07:00 Estimated GFR > 60 ml/min 01/11/20 07:00 BUN/Creatinine Ratio 76 % 01/11/20 07:00 Glucose 168 mg/dL (65-100) H 01/11/20 07:00 POC Glucose 148 (70-105) H 01/13/20 05:44 Lactic Acid 1.80 mmol/L (0.7-2.0) 11/25/19 05:05 Calcium 10.5 mg/dL (8.4-10.2) H 01/11/20 07:00 Ionized Calcium 4.5 mg/dL (4.8-5.6) L 11/23/19 06:32 Phosphorus 4.20 mg/dL (2.5-4.5) D 11/28/19 08:59 Magnesium 2.30 mg/dL (1.7-2.3) 11/29/19 13:41 Total Bilirubin 0.40 mg/dL (0.1-1.2) 12/13/19 07:48 AST 27 units/L (5-40) 12/13/19 07:48 ALT 26 units/L (7-56) 12/13/19 07:48 Alkaline Phosphatase 316 units/L (35-129) H 12/13/19 07:48 Ammonia 42.0 umol/L (25-60) 11/29/19 13:41 Total Creatine Kinase 139 units/L (30-135) H 11/22/19 23:27 CK-MB (CK-2) 8.3 ng/mL (0.0-4.0) H 11/22/19 23:27 CK-MB (CK-2) Rel Index 5.9 (0-4) H 11/22/19 23:27 Troponin T < 0.010 ng/mL (0.00-0.029) 11/22/19 23:27 Total Protein 6.8 g/dL (6.3-8.2) 12/13/19 07:48 Albumin 2.4 g/dL (3.9-5) L 12/13/19 07:48 Albumin/Globulin Ratio 0.5 % 12/13/19 07:48 Lipase 18 units/L (13-60) 11/23/19 00:34 Procalcitonin 1.09 ng/mL (<0.15) 11/23/19 04:53 Urine Color Yellow (Yellow) 12/16/19 Unknown Urine Turbidity Slightly-cloudy (Clear) 12/16/19 Unknown Urine pH 5.0 (5.0-7.0) 12/16/19 Unknown Ur Specific Hugo 1.018 (1.003-1.030) 12/16/19 Unknown Urine Protein 30 mg/dl mg/dL (Negative) 12/16/19 Unknown Urine Glucose (UA) Neg mg/dL (Negative) 12/16/19 Unknown Urine Ketones Neg mg/dL (Negative) 12/16/19 Unknown Urine Blood Sm (Negative) 12/16/19 Unknown Urine Nitrite Neg (Negative) 12/16/19 Unknown Urine Bilirubin Neg (Negative) 12/16/19 Unknown Urine Urobilinogen < 2.0 mg/dL (<2.0) 12/16/19 Unknown Ur Leukocyte Esterase Neg (Negative) 12/16/19 Unknown Urine WBC (Auto) 6.0 /HPF (0.0-6.0) 12/16/19 Unknown Urine RBC (Auto) 9.0 /HPF (0.0-6.0) 12/16/19 Unknown U Epithel Cells (Auto) < 1.0 /HPF (0-13.0) 12/16/19 Unknown Urine Bacteria (Auto) 2+ /HPF (Negative) 11/22/19 23:17 Hyaline Casts 3 /LPF 12/16/19 Unknown Granular Casts 3 /LPF 12/16/19 Unknown Urine Mucus Few /HPF 12/16/19 Unknown Vancomycin Trough 33.8 ug/mL (5.0-20.0) H 12/21/19 08:56 Random Vancomycin 16.2 ug/mL (0-40.0) 12/24/19 04:31 Salicylates < 0.3 mg/dL (2.8-20.0) L 11/22/19 23:27 Urine Opiates Screen Presumptive negative 11/22/19 23:17 Urine Methadone Screen Presumptive negative 11/22/19 23:17 Acetaminophen < 5.0 ug/mL (10.0-30.0) L 11/22/19 23:27 Ur Barbiturates Screen Presumptive negative 11/22/19 23:17 Ur Phencyclidine Scrn Presumptive negative 11/22/19 23:17 Ur Amphetamines Screen Presumptive negative 11/22/19 23:17 U Benzodiazepines Scrn Presumptive negative 11/22/19 23:17 Urine Cocaine Screen Presumptive negative 11/22/19 23:17 U Marijuana (THC) Screen Presumptive negative 11/22/19 23:17 Drugs of Abuse Note Disclamer 11/22/19 23:17 Plasma/Serum Alcohol 0.08 % (0-0.07) H 11/22/19 23:27 Hepatitis A IgM Ab Non-reactive (NonReactive) 11/23/19 01:19 Hep Bs Antigen Non-reactive (Negative) 11/23/19 01:19 Hep B Core IgM Ab Non-reactive (NonReactive) 11/23/19 01:19 Hepatitis C Antibody Non-reactive (NonReactive) 11/23/19 01:19 Blood Type O POSITIVE 12/21/19 14:54 Antibody Screen Negative 12/21/19 14:54 Crossmatch See Detail 12/21/19 14:54 - Diagnostic Impressions Diagnostic Impressions: Echocardiogram 11/23/19 03:58 Transthoracic Echocardiogram Indication: Cardiac arrest BP: 131/89 HR: 115 Conclusions *The study quality is technically difficult. *Global left ventricular wall motion and contractility are within normal limits. *The estimated ejection fraction is 55-60%. *Abnormal left ventricular diastolic filling is observed, consistent with impaired relaxation. *There is no pericardial effusion. Findings Procedure Info: The study quality is technically difficult. The study was technically limited due to the patient's inability to lay in the left lateral decubitus position. Left Ventricle: The left ventricular chamber size is normal. There is no left ventricular hypertrophy. Global left ventricular wall motion and contractility are within normal limits. Global left ventricular systolic function is normal. The estimated ejection fraction is 55-60%. Abnormal left ventricular diastolic filling is observed, consistent with impaired relaxation. Left Atrium: The left atrial chamber size is normal. Aortic Valve: The aortic valve leaflets are mildly thickened. Mitral Valve: The mitral valve leaflets are mildly thickened. There is no evidence of mitral regurgitation. Tricuspid Valve: The tricuspid valve leaflets are normal. There is trace tricuspid regurgitation. The right ventricular systolic pressure is calculated at 33 mmHg. Pulmonic Valve: The pulmonic valve appears normal. Pericardium: The pericardium appears normal. There is no pericardial effusion. Aorta: The aorta appears normal. Venous: The inferior vena cava appears normal in size. Measurements Chambers 2D Name Value Normal Range IVSd (2D) 0.94 cm (0.6 - 1.1) LVPWd (2D) 0.81 cm (0.6 - 1.1) LVIDd (2D) 3.6 cm (3.7 - 5.6) LVIDs (2D) 2.27 cm (2 - 3.8) LV FS (2D) 36.93 % - EF Teichholz (2D) 67.76 % - Ao root diameter (2D) 3.03 cm (2 - 3.7) Volumes/Mass Name Value Normal Range LA ESV SP 4CH (A/L) 16.89 ml - LA ESV SP 4CH (MOD) 15.52 ml - Diastolic/Systolic Function Name Value Normal Range MV E-wave Vmax 0.55 m/sec - MV deceleration time 200.89 msec - MV A-wave Vmax 0.68 m/sec - MV E:A ratio 0.82 ratio - Aortic Valve Name Value Normal Range AV Vmax 1.1 m/sec - AV VTI 15.9 cm - AV peak gradient 4.86 mmHg - AV mean gradient 2.59 mmHg - LVOT diameter 2 cm - LVOT Vmax 1.03 m/sec - LVOT VTI 15.87 cm - LVOT peak gradient 4.24 mmHg - LVOT mean gradient 2.41 mmHg - SV LVOT 49.77 ml - JOSÉ MIGUEL (continuity Vmax) 2.93 cm2 - JOSÉ MIGUEL (continuity VTI) 3.13 cm2 - Tricuspid Valve Name Value Normal Range TR Vmax 2.74 m/sec - TR peak gradient 303 mmHg - RAP 3 mmHg - RVSP 33 mmHg - IVC diameter 1.77 cm (1.2 - 2.3) Pulmonic Valve/Qp:Qs Name Value Normal Range PV Vmax 0.77 m/sec - PV peak gradient 2.4 mmHg - PV acceleration time 114.18 msec - Echocardiogram Limited Views 12/17/19 14:53 Transthoracic Echocardiogram Indication: R/O Vegetations BP: 144/83 HR: 133 Conclusions *Global left ventricular systolic function is mildly decreased. *The estimated ejection fraction is 45-50%. *A trivial pericardial effusion is visualized. Findings Left Ventricle: The left ventricular chamber size is normal. Global left ventricular systolic function is mildly decreased. The estimated ejection fraction is 45-50%. Left Atrium: The left atrial chamber size is normal. Right Ventricle: The right ventricular cavity size is normal. Right Atrium: The right atrial cavity size is normal. Aortic Valve: The aortic valve is not well visualized. There is no evidence of aortic regurgitation. Mitral Valve: The mitral valve leaflets are mildly thickened. There is trace of mitral regurgitation. Tricuspid Valve: The tricuspid valve leaflets are mildly thickened. There is trace tricuspid regurgitation. The right ventricular systolic pressure is calculated at 29 mmHg. Pulmonic Valve: The pulmonic valve is not well visualized. There is no evidence of pulmonic regurgitation. Pericardium: A trivial pericardial effusion is visualized. Aorta: There is no dilatation of the ascending aorta. There is no dilatation of the aortic root. Venous: The inferior vena cava appears normal in size. There is a greater than 50% respiratory change in the inferior vena cava dimension. Measurements Chambers 2D Name Value Normal Range IVSd (2D) 0.83 cm (0.6 - 1.1) LVPWd (2D) 0.98 cm (0.6 - 1.1) LVIDd (2D) 3.71 cm (3.7 - 5.6) LVIDs (2D) 2.93 cm (2 - 3.8) LV FS (2D) 21.12 % - EF Teichholz (2D) 43.71 % - Ao root diameter (2D) 3.02 cm (2 - 3.7) Volumes/Mass Name Value Normal Range LA ESV SP 4CH (A/L) 36.8 ml - LA ESV SP 2CH (A/L) 45.89 ml - LA ESV BP (A/L) 42.35 ml - LA ESV BP (A/L) index 26.63 ml/m2 - LA ESV SP 4CH (MOD) 34.42 ml - LA ESV SP 2CH (MOD) 44.21 ml - LA ESV BP (MOD) 39.82 ml - LA ESV BP (MOD) index 25.05 ml/m2 - Aortic Valve Name Value Normal Range LVOT diameter 1.63 cm - Tricuspid Valve Name Value Normal Range TR Vmax 2.56 m/sec - TR peak gradient 26 mmHg - RAP 3 mmHg - RVSP 29 mmHg - IVC diameter 1.83 cm (1.2 - 2.3) Dela Cruz/IV: Voiding Method Incontinent IV Catheter Type [Forearm] Peripheral IV IV Catheter Type [Left Forearm Peripheral IV ] IV Catheter Type [Right Peripheral IV Antecubital] IV Catheter Type [Right Hand] INT / Saline Lock IV Catheter Type [Right Wrist] Peripheral IV IV Catheter Type [Left Wrist] Peripheral IV IV Catheter Type [Left Peripheral IV Antecubital] IV Catheter Type [Right INT / Saline Lock Forearm] IV Catheter Type [Left Hand] Peripheral IV Active Medications - Current Medications Current Medications: Generic Name Dose Route Start Last Admin Trade Name Luh PRN Reason Stop Dose Admin Acetaminophen 650 mg 12/06/19 10:25 01/09/20 22:17 Tylenol FEEDTUBE 650 mg Q6H PRN Administration TEMP >/=100.3 Lipase/Protease/Amylase 1 each 11/23/19 11:[address] 10,500 Unit FEEDTUBE PRN PRN Use w/ sod bicarb for FT Fentanyl 50 mcg 12/05/19 02:10 12/12/19 20:04 Sublimaze IV 50 mcg Q10MIN PRN Administration ANALGESIA Glycopyrrolate 2 mg 12/31/19 20:00 01/12/20 21:10 Robinul PO 2 mg TID LUCHO Administration Hydralazine HCl 10 mg 11/24/19 00:45 12/18/19 13:25 Apresoline IV 10 mg Q6H PRN Administration SBP > 160 Hydroxyzine Pamoate 25 mg 12/06/19 10:00 04/25/20 21:10 Vistaril PO 25 mg BID LUCHO Administration Lansoprazole 30 mg 11/27/19 10:00 01/12/20 09:18 Prevacid Solutab FEEDTUBE 30 mg QDAY LUCHO Administration Levetiracetam 500 mg 11/29/19 10:00 01/12/20 21:10 Keppra PO 500 mg BID LUCHO Administration Mirtazapine 30 mg 12/06/19 10:00 01/12/20 09:18 Remeron PO 30 mg DAILY LUCHO Administration Morphine Sulfate 2 mg 12/12/19 18:40 01/12/20 21:11 Morphine IV 2 mg Q4H PRN Administration Pain, Moderate (4-6) Ondansetron HCl 4 mg 12/10/19 07:53 01/06/20 10:53 Zofran IV 4 mg Q4H PRN Administration Nausea And Vomiting Quetiapine Fumarate 100 mg 01/09/20 21:41 01/12/20 21:10 Seroquel FEEDTUBE 100 mg QHS LUCHO Administration Senna/Docusate Sodium 2 tab 12/24/19 07:00 Senokot S PO BID PRN CONSTIPATION Sertraline HCl 25 mg 01/01/20 10:00 01/12/20 09:18 Zoloft PO 25 mg QDAY LUCHO Administration Simple Syrup 15 ml 11/23/19 11:50 Simple Syrup FEEDTUBE PRN PRN Hypoglycemia BG<70 Simple Syrup 30 ml 11/23/19 11:50 Simple Syrup FEEDTUBE PRN PRN Hypoglycemia Sodium Bicarbonate 325 mg 11/23/19 11:50 Sodium Bicarbonate FEEDTUBE PRN PRN For Clogged Feeding Tube Tamsulosin HCl 0.4 mg 12/14/19 13:00 01/12/20 09:18 Flomax PO 0.4 mg QDAY LUCHO Administration Nutrition/Malnutrition Assess - Dietary Evaluation Nutrition/Malnutrition Findings: Nutrition Notes Start: 11/23/19 11:29 Freq: Status: Active Protocol: Document 01/11/20 09:15 LM (Rec: 01/11/20 09:39 LM [email or web address]) Nutrition Notes Initial or Follow up Reassessment Current Diagnosis Hypertension Other Pertinent Diagnosis Cardaic arrest, ETOH dependence, UTI Current Diet Vital AF 1.2 at 50 ml/hr Labs/Tests Na 134 Pertinent Medications Reviewed Height 5 ft 6 in Weight 52.7 kg [place] Body Weight (kg) 59.09 BMI 18.7 Weight change and time frame 6% wt loss in 9 days Subjective/Other Information Per RN notes pt is tolerating Vital at goal. Pt has been extubated. Pt with PEG. Percent of energy/protein needs met: 100%/100% Burn Absent Trauma Absent GI Symptoms None Current % PO Negligible Minimum of two criteria No Interpretation of Weight Loss (severe) >2% in 1 week Muscle Mass Mild Depletion (non-severe) #2 Nutrition Diagnosis Malnutrition Etiology chronic illness As Evidenced by Signs and Symptoms 6% wt loss in 9 days, temporal wasting #1 Nutrition Diagnosis Inadequate oral intake Diagnosis Progress(for reassessment Continues documentation) Is patient on ventilator? No Is Patient Ambulatory and/or Out of Bed No REE-(Golden-St. Jeor-confined to bed) 1377.048 Kcal/Kg value to use for calculation 31 Approximate Energy Requirements Using 1634 kcal/Kg Calculation [facility] or Additional Notes Protein: 64-80g (1.2-1.5g/kg) Fluid: 1 ml/kcal Nutrition Intervention Change Diet Order: Continue TF Nutrition Support: Change to Jevity 1.2 at 55ml/ hr Flush 50ml q6h for hyponatremia Flush 90ml q4h once resolved Kcal 1,584 Protein (gm) 73 Fluid (mL) 1,065 Goal #1 TF tolerance Goal #2 Meet at least 80% of energy and protein needs via TF Anticipated Discharge Needs: TF Follow-Up By: 01/14/20 Additional Comments F/U for new TF/tolerance
[2020-01-13] MEDS: SERTRALINE 50 MG TAB PO SCH (09:53)
[2020-01-13] MEDS: levETIRAcetam 500 MG/5 ML ORAL LIQD PO SCH ×2 (09:53→20:59)
[2020-01-13] MEDS: LANSOPRAZOLE 30 MG SOLUTAB FEEDTUBE SCH (09:53)
[2020-01-13] MEDS: GLYCOPYRROLATE 1 MG TAB PO SCH ×3 (09:54→20:45)
[2020-01-13] MEDS: TAMSULOSIN 0.4 MG CAP PO SCH (09:54)
[2020-01-13] MEDS: hydrOXYzine PAMOATE 25 MG CAP PO SCH ×2 (09:54→21:00)
[2020-01-13] MEDS: MIRTAZAPINE 30 MG TAB PO SCH (09:54)
--- NOTE | 2020-01-13 13:17 | Progress Note ---
Assessment and Plan Acute cardiopulmonary arrest with ROSC Acute hypoxemic respiratory failure s/p MVS s/p Tracheosotmy MRSA Bacteremia MRSA pneumonia Acute [id number] encephalopathy Metabolic acidosis/alcoholic acidosis/Lactic acidosis( resolved) Ischemic hepatitis Leucocytosis - persistent Erythrocytosis Tobacco use disorder Alcohol use Disorder -Start low dose metoprolol for sinus tachycardia -CBC, BMP prn -Trach care, airway clearance, secretion management( continue scopolamine patch and Robinul) -CXR, ABG prn -Weaning trials as tolerated -Continue contact isolation for MRSA -Trend leukocytosis, and temperature curve -Continue all care as documented below. -PT/OT to evaluate and treat -OK to transfer to telemetry in the morning, to optimize PT/OT and to initiate family teaching/discharge planning -Continue aspiration precautions, HOB>40 -Continue Stress ulcer prophylaxis -Continue enteric nutritional support at goal rate. -Continue to monitor glycemic control, with target blood glucose 140-180 mg/dL while critically ill. -Avoid hypoglycemia - Continue to wean supplemental oxygen for target O2 sat's > 90% -Continue thiamine, multivitamin and electrolyte replacement -Continue to avoid nephrotoxins, adjust all medications for GFR and CrCL - Continue bronchodilators with pulmonary hygiene - Continue prn analgesia per CPOT score - Continue to maintain of sleep-wake cycle, avoid delirium - Continue mobility protocol and skin assessment per protocol for pressure ulcer prevention - Continue to monitor for clinical seizures - continue other care per attending / other consultants CONDITION: FAIR PROGNOSIS: FAIR CODE STATUS: DNAR Subjective Date of service: 01/13/20 Principal diagnosis: Ac cardiopulmonary arrest; Ac hypoxemic resp failure; Acute encephalopathy Interval history: Patient is seen today for: Acute cardiopulmonary arrest with ROSC; Acute hypoxemic respiratory failure; Acute metabolic-toxic encephalopathy; Ischemic hepatitis; Leucocytosis with lactic acidosis; Tobacco use disorder; Alcohol use Disorder; s/p tracheostomy; s/p PEG Seen and examined at bedside; 24hour events reviewed; nursing and respiratory care staff consulted; no adverse overnight events reported to me; resting peacefully in bed; on ATP, copious secretions More awake and alert. Smiling obeying simple commands. No fevers, no vomiting, continues to tolerate tube feedings Objective Vital Signs - 12hr 01/13/20 01/13/20 01/13/20 02:01 03:01 03:25 Temperature Pulse Rate 107 H 115 H Pulse Rate [ From Monitor] Respiratory 24 25 H Rate Blood Pressure 113/74 113/74 O2 Sat by Pulse 100 100 98 Oximetry O2 Sat by Pulse 98 Oximetry [ Assessment] 01/13/20 01/13/20 01/13/20 03:35 03:56 04:00 Temperature 98.4 F Pulse Rate 116 H Pulse Rate [ 114 H From Monitor] Respiratory 26 H 24 Rate Blood Pressure 121/78 O2 Sat by Pulse 99 100 Oximetry O2 Sat by Pulse Oximetry [ Assessment] 01/13/20 01/13/20 01/13/20 05:00 05:01 06:01 Temperature Pulse Rate 111 H 111 H 115 H Pulse Rate [ From Monitor] Respiratory 24 26 H Rate Blood Pressure 127/87 127/87 O2 Sat by Pulse 100 100 Oximetry O2 Sat by Pulse Oximetry [ Assessment] 01/13/20 01/13/20 01/13/20 07:01 08:00 09:00 Temperature 97.2 F L Pulse Rate 113 H 114 H 121 H Pulse Rate [ From Monitor] Respiratory 27 H 28 H Rate Blood Pressure 127/87 126/84 O2 Sat by Pulse 100 100 Oximetry O2 Sat by Pulse Oximetry [ Assessment] 01/13/20 01/13/20 01/13/20 09:01 09:50 10:01 Temperature Pulse Rate 112 H 120 H Pulse Rate [ 118 H From Monitor] Respiratory 27 H 30 H 26 H Rate Blood Pressure 126/84 126/84 O2 Sat by Pulse 99 100 98 Oximetry O2 Sat by Pulse Oximetry [ Assessment] 01/13/20 01/13/20 11:01 12:00 Temperature 97.6 F Pulse Rate 122 H 128 H Pulse Rate [ From Monitor] Respiratory 29 H 29 H Rate Blood Pressure 126/84 135/89 O2 Sat by Pulse 100 99 Oximetry O2 Sat by Pulse Oximetry [ Assessment] Constitutional: no acute distress, other (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, with midline tracheostomy ) Eyes: non-icteric ENT: oropharynx moist, other (s/p trach) Neck: supple, no lymphadenopathy, no JVD Effort: normal Ascultation: Bilateral: diminished breath sounds, rhonchi Percussion: Bilateral: not dull Cardiovascular: regular rate and rhythm (tachycardia), other (S1,S2) Gastrointestinal: normoactive bowel sounds, soft, non-tender, non-distended Integumentary: normal Extremities: no cyanosis, no edema, pulses normal, no ischemia or petechiae Neurologic: pupils equal and round, other (tried to squeeze my hands, trying to mouth words in response to questions) CBC and BMP: 01/11/20 07:00 01/11/20 07:00 ABG, PT/INR, D-dimer: ABG ABG pH 7.429 pH Units (7.350-7.450) 01/09/20 08:51 ABG pCO2 39.1 mm Hg 01/09/20 08:51 ABG pO2 94.3 mm Hg (80.0-90.0) H 01/09/20 08:51 ABG O2 Saturation 97.4 % (95.0-99.0) 01/09/20 08:51 PT/INR, D-dimer PT 17.0 Sec. (12.2-14.9) H 11/23/19 03:47 INR 1.36 (0.87-1.13) H 11/23/19 03:47 Abnormal lab findings: Abnormal Labs 11/22/19 11/22/19 11/22/19 23:17 23:18 23:27 WBC 21.2 H RBC 3.59 L Hgb 9.8 L Hct MCH 27 L RDW 18.6 H Plt Count 454 H Lymph % (Auto) [place] % (Auto) [place] # Baso # Seg Neutrophils % Seg Neuts % (Manual) 86.0 H Lymphocytes % (Manual) 9.0 L Monocytes % (Manual) Seg Neutrophils # Seg Neutrophils # Man 18.2 H Lymphocytes # (Manual) Monocytes # (Manual) 1.1 H Eosinophils # (Manual) Basophils # (Manual) PT INR APTT ABG pH ABG pO2 ABG HCO3 ABG O2 Saturation ABG Base Excess ABG Hemoglobin Oxyhemoglobin Sodium Potassium Chloride Carbon Dioxide BUN Creatinine Glucose POC Glucose 53 L Lactic Acid Calcium Ionized Calcium Phosphorus Magnesium Total Bilirubin AST ALT Alkaline Phosphatase Ammonia Total Creatine Kinase CK-MB (CK-2) CK-MB (CK-2) Rel Index Total Protein Albumin Urine WBC (Auto) 40.0 H Vancomycin Trough Salicylates Acetaminophen Plasma/Serum Alcohol Crossmatch 11/22/19 11/22/19 11/22/19 23:27 23:27 23:27 WBC RBC Hgb Hct MCH RDW Plt Count Lymph % (Auto) [place] % (Auto) [place] # Baso # Seg Neutrophils % Seg Neuts % (Manual) Lymphocytes % (Manual) Monocytes % (Manual) Seg Neutrophils # Seg Neutrophils # Man Lymphocytes # (Manual) Monocytes # (Manual) Eosinophils # (Manual) Basophils # (Manual) PT INR APTT ABG pH ABG pO2 ABG HCO3 ABG O2 Saturation ABG Base Excess ABG Hemoglobin Oxyhemoglobin Sodium Potassium 2.4 L* Chloride 85.1 L Carbon Dioxide 19 L BUN Creatinine 0.5 L Glucose 261 H POC Glucose Lactic Acid Calcium Ionized Calcium Phosphorus Magnesium Total Bilirubin AST 609 H ALT 152 H Alkaline Phosphatase 160 H Ammonia 117.0 H Total Creatine Kinase 139 H CK-MB (CK-2) 8.3 H CK-MB (CK-2) Rel Index 5.9 H Total Protein Albumin 3.6 L Urine WBC (Auto) Vancomycin Trough Salicylates < 0.3 L Acetaminophen Plasma/Serum Alcohol Crossmatch 11/22/19 11/22/19 11/23/19 23:27 23:27 01:10 WBC RBC Hgb Hct MCH RDW Plt Count Lymph % (Auto) [place] % (Auto) [place] # Baso # Seg Neutrophils % Seg Neuts % (Manual) Lymphocytes % (Manual) Monocytes % (Manual) Seg Neutrophils # Seg Neutrophils # Man Lymphocytes # (Manual) Monocytes # (Manual) Eosinophils # (Manual) Basophils # (Manual) PT INR APTT ABG pH 7.273 L ABG pO2 209.7 H ABG HCO3 ABG O2 Saturation 99.2 H ABG Base Excess -3.9 L ABG Hemoglobin 10.6 L Oxyhemoglobin 93.9 L Sodium Potassium Chloride Carbon Dioxide BUN Creatinine Glucose POC Glucose Lactic Acid Calcium Ionized Calcium Phosphorus Magnesium Total Bilirubin AST ALT Alkaline Phosphatase Ammonia Total Creatine Kinase CK-MB (CK-2) CK-MB (CK-2) Rel Index Total Protein Albumin Urine WBC (Auto) Vancomycin Trough Salicylates Acetaminophen < 5.0 L Plasma/Serum Alcohol 0.08 H Crossmatch 11/23/19 11/23/19 11/23/19 01:19 01:19 03:47 WBC RBC Hgb Hct MCH RDW Plt Count Lymph % (Auto) [place] % (Auto) [place] # Baso # Seg Neutrophils % Seg Neuts % (Manual) Lymphocytes % (Manual) Monocytes % (Manual) Seg Neutrophils # Seg Neutrophils # Man Lymphocytes # (Manual) Monocytes # (Manual) Eosinophils # (Manual) Basophils # (Manual) PT 16.3 H INR 1.29 H APTT ABG pH ABG pO2 ABG HCO3 ABG O2 Saturation ABG Base Excess ABG Hemoglobin Oxyhemoglobin Sodium Potassium Chloride Carbon Dioxide BUN Creatinine Glucose POC Glucose Lactic Acid 2.10 H* 5.00 H* Calcium Ionized Calcium Phosphorus Magnesium Total Bilirubin AST ALT Alkaline Phosphatase Ammonia Total Creatine Kinase CK-MB (CK-2) CK-MB (CK-2) Rel Index Total Protein Albumin Urine WBC (Auto) Vancomycin Trough Salicylates Acetaminophen Plasma/Serum Alcohol Crossmatch 11/23/19 11/23/19 11/23/19 03:47 03:47 04:53 WBC RBC Hgb 9.4 L Hct MCH RDW Plt Count Lymph % (Auto) [place] % (Auto) [place] # Baso # Seg Neutrophils % Seg Neuts % (Manual) Lymphocytes % (Manual) Monocytes % (Manual) Seg Neutrophils # Seg Neutrophils # Man Lymphocytes # (Manual) Monocytes # (Manual) Eosinophils # (Manual) Basophils # (Manual) PT 17.0 H INR 1.36 H APTT 128.2 H* ABG pH ABG pO2 ABG HCO3 ABG O2 Saturation ABG Base Excess ABG Hemoglobin Oxyhemoglobin Sodium Potassium Chloride Carbon Dioxide 18 L BUN Creatinine 0.5 L Glucose 105 H POC Glucose Lactic Acid Calcium 8.3 L Ionized Calcium Phosphorus 2.40 L Magnesium Total Bilirubin 1.30 H AST 761 H ALT 158 H Alkaline Phosphatase 143 H Ammonia Total Creatine Kinase CK-MB (CK-2) CK-MB (CK-2) Rel Index Total Protein Albumin 2.8 L Urine WBC (Auto) Vancomycin Trough Salicylates Acetaminophen Plasma/Serum Alcohol Crossmatch 11/23/19 11/23/19 11/23/19 05:12 06:32 06:32 WBC 16.8 H RBC 3.31 L Hgb 8.9 L Hct 28.7 L MCH 27 L RDW 18.6 H Plt Count Lymph % (Auto) [place] % (Auto) [place] # Baso # Seg Neutrophils % Seg Neuts % (Manual) 94.0 H Lymphocytes % (Manual) 1.0 L Monocytes % (Manual) Seg Neutrophils # Seg Neutrophils # Man 15.8 H Lymphocytes # (Manual) 0.2 L Monocytes # (Manual) Eosinophils # (Manual) Basophils # (Manual) PT INR APTT ABG pH ABG pO2 ABG HCO3 ABG O2 Saturation ABG Base Excess -3.2 L ABG Hemoglobin 9.0 L Oxyhemoglobin 93.6 L Sodium Potassium Chloride Carbon Dioxide BUN Creatinine Glucose POC Glucose Lactic Acid Calcium Ionized Calcium 4.5 L Phosphorus Magnesium Total Bilirubin AST ALT Alkaline Phosphatase Ammonia Total Creatine Kinase CK-MB (CK-2) CK-MB (CK-2) Rel Index Total Protein Albumin Urine WBC (Auto) Vancomycin Trough Salicylates Acetaminophen Plasma/Serum Alcohol Crossmatch 11/23/19 11/24/19 11/24/19 06:32 04:35 04:35 WBC RBC Hgb Hct MCH RDW Plt Count Lymph % (Auto) [place] % (Auto) [place] # Baso # Seg Neutrophils % Seg Neuts % (Manual) Lymphocytes % (Manual) Monocytes % (Manual) Seg Neutrophils # Seg Neutrophils # Man Lymphocytes # (Manual) Monocytes # (Manual) Eosinophils # (Manual) Basophils # (Manual) PT INR APTT ABG pH ABG pO2 ABG HCO3 ABG O2 Saturation ABG Base Excess ABG Hemoglobin Oxyhemoglobin Sodium Potassium Chloride Carbon Dioxide BUN Creatinine Glucose POC Glucose Lactic Acid 3.30 H* Calcium Ionized Calcium Phosphorus Magnesium 1.40 L Total Bilirubin AST ALT Alkaline Phosphatase Ammonia 98.0 H Total Creatine Kinase CK-MB (CK-2) CK-MB (CK-2) Rel Index Total Protein Albumin Urine WBC (Auto) Vancomycin Trough Salicylates Acetaminophen Plasma/Serum Alcohol Crossmatch 11/24/19 11/25/19 11/25/19 05:22 04:34 05:05 WBC 17.3 H RBC 2.88 L Hgb 7.8 L Hct 24.6 L MCH 27 L RDW 18.5 H Plt Count Lymph % (Auto) 7.7 L [place] % (Auto) 9.7 H [place] # 1.7 H Baso # Seg Neutrophils % 82.2 H Seg Neuts % (Manual) Lymphocytes % (Manual) Monocytes % (Manual) Seg Neutrophils # 14.2 H Seg Neutrophils # Man Lymphocytes # (Manual) Monocytes # (Manual) Eosinophils # (Manual) Basophils # (Manual) PT INR APTT ABG pH 7.475 H ABG pO2 ABG HCO3 29.4 H 32.3 H ABG O2 Saturation ABG Base Excess 5.4 H 6.9 H ABG Hemoglobin 9.0 L 10.6 L Oxyhemoglobin 94.3 L Sodium Potassium Chloride Carbon Dioxide BUN Creatinine Glucose POC Glucose Lactic Acid Calcium Ionized Calcium Phosphorus Magnesium Total Bilirubin AST ALT Alkaline Phosphatase Ammonia Total Creatine Kinase CK-MB (CK-2) CK-MB (CK-2) Rel Index Total Protein Albumin Urine WBC (Auto) Vancomycin Trough Salicylates Acetaminophen Plasma/Serum Alcohol Crossmatch 11/25/19 11/25/19 11/26/19 05:05 22:46 03:31 WBC RBC Hgb Hct MCH RDW Plt Count Lymph % (Auto) [place] % (Auto) [place] # Baso # Seg Neutrophils % Seg Neuts % (Manual) Lymphocytes % (Manual) Monocytes % (Manual) Seg Neutrophils # Seg Neutrophils # Man Lymphocytes # (Manual) Monocytes # (Manual) Eosinophils # (Manual) Basophils # (Manual) PT INR APTT ABG pH 7.459 H ABG pO2 ABG HCO3 34.2 H ABG O2 Saturation ABG Base Excess 9.4 H ABG Hemoglobin 7.6 L Oxyhemoglobin 94.8 L Sodium 152 H D 147 H Potassium 2.3 L* D 2.8 L* D Chloride 107.8 H Carbon Dioxide 31 H D 33 H BUN Creatinine 0.6 L 0.6 L Glucose 148 H 177 H POC Glucose Lactic Acid Calcium Ionized Calcium Phosphorus Magnesium Total Bilirubin AST 105 H ALT 71 H Alkaline Phosphatase 155 H Ammonia Total Creatine Kinase CK-MB (CK-2) CK-MB (CK-2) Rel Index Total Protein 5.2 L D Albumin 2.9 L Urine WBC (Auto) Vancomycin Trough Salicylates Acetaminophen Plasma/Serum Alcohol Crossmatch 11/26/19 11/26/19 11/27/19 08:24 08:24 04:20 WBC 12.0 H RBC 3.00 L Hgb 8.0 L 9.3 L Hct 25.9 L 29.7 L MCH 27 L RDW 18.5 H Plt Count Lymph % (Auto) [place] % (Auto) [place] # Baso # Seg Neutrophils % Seg Neuts % (Manual) 89.0 H Lymphocytes % (Manual) 4.0 L Monocytes % (Manual) Seg Neutrophils # Seg Neutrophils # Man 10.7 H Lymphocytes # (Manual) 0.5 L Monocytes # (Manual) Eosinophils # (Manual) Basophils # (Manual) PT INR APTT ABG pH ABG pO2 ABG HCO3 ABG O2 Saturation ABG Base Excess ABG Hemoglobin Oxyhemoglobin Sodium 146 H Potassium 3.4 L D Chloride Carbon Dioxide BUN Creatinine 0.5 L Glucose 165 H POC Glucose Lactic Acid Calcium Ionized Calcium Phosphorus Magnesium Total Bilirubin AST 57 H ALT Alkaline Phosphatase 166 H Ammonia Total Creatine Kinase CK-MB (CK-2) CK-MB (CK-2) Rel Index Total Protein Albumin 2.9 L Urine WBC (Auto) Vancomycin Trough Salicylates Acetaminophen Plasma/Serum Alcohol Crossmatch 11/27/19 11/27/19 11/27/19 04:28 04:28 04:42 WBC RBC Hgb Hct MCH RDW Plt Count Lymph % (Auto) [place] % (Auto) [place] # Baso # Seg Neutrophils % Seg Neuts % (Manual) Lymphocytes % (Manual) Monocytes % (Manual) Seg Neutrophils # Seg Neutrophils # Man Lymphocytes # (Manual) Monocytes # (Manual) Eosinophils # (Manual) Basophils # (Manual) PT INR APTT ABG pH 7.470 H ABG pO2 74.0 L ABG HCO3 33.8 H ABG O2 Saturation ABG Base Excess 9.1 H ABG Hemoglobin 8.7 L Oxyhemoglobin 94.7 L Sodium 146 H Potassium 2.9 L* Chloride Carbon Dioxide BUN 25 H Creatinine Glucose 213 H POC Glucose Lactic Acid Calcium Ionized Calcium Phosphorus 1.00 L Magnesium Total Bilirubin AST ALT Alkaline Phosphatase Ammonia Total Creatine Kinase CK-MB (CK-2) CK-MB (CK-2) Rel Index Total Protein Albumin Urine WBC (Auto) Vancomycin Trough Salicylates Acetaminophen Plasma/Serum Alcohol Crossmatch 11/27/19 11/27/19 11/27/19 05:37 12:20 15:46 WBC RBC Hgb Hct MCH RDW Plt Count Lymph % (Auto) [place] % (Auto) [place] # Baso # Seg Neutrophils % Seg Neuts % (Manual) Lymphocytes % (Manual) Monocytes % (Manual) Seg Neutrophils # Seg Neutrophils # Man Lymphocytes # (Manual) Monocytes # (Manual) Eosinophils # (Manual) Basophils # (Manual) PT INR APTT ABG pH ABG pO2 ABG HCO3 ABG O2 Saturation ABG Base Excess ABG Hemoglobin Oxyhemoglobin Sodium 146 H Potassium 3.5 L D Chloride Carbon Dioxide BUN 24 H Creatinine 0.6 L Glucose 187 H POC Glucose 117 H 220 H Lactic Acid Calcium Ionized Calcium Phosphorus Magnesium Total Bilirubin AST ALT Alkaline Phosphatase Ammonia Total Creatine Kinase CK-MB (CK-2) CK-MB (CK-2) Rel Index Total Protein Albumin Urine WBC (Auto) Vancomycin Trough Salicylates Acetaminophen Plasma/Serum Alcohol Crossmatch 11/27/19 11/28/19 11/28/19 17:28 05:00 05:02 WBC RBC Hgb Hct MCH RDW Plt Count Lymph % (Auto) [place] % (Auto) [place] # Baso # Seg Neutrophils % Seg Neuts % (Manual) Lymphocytes % (Manual) Monocytes % (Manual) Seg Neutrophils # Seg Neutrophils # Man Lymphocytes # (Manual) Monocytes # (Manual) Eosinophils # (Manual) Basophils # (Manual) PT INR APTT ABG pH ABG pO2 72.4 L ABG HCO3 33.6 H ABG O2 Saturation 94.1 L ABG Base Excess 7.3 H ABG Hemoglobin Oxyhemoglobin 91.8 L Sodium 146 H Potassium 3.3 L Chloride Carbon Dioxide BUN 25 H Creatinine 0.6 L Glucose 176 H POC Glucose 198 H Lactic Acid Calcium Ionized Calcium Phosphorus Magnesium Total Bilirubin AST ALT Alkaline Phosphatase Ammonia Total Creatine Kinase CK-MB (CK-2) CK-MB (CK-2) Rel Index Total Protein Albumin Urine WBC (Auto) Vancomycin Trough Salicylates Acetaminophen Plasma/Serum Alcohol Crossmatch 11/28/19 11/28/19 11/29/19 05:02 18:55 10:43 WBC 15.2 H 19.0 H RBC 3.06 L 3.01 L Hgb 8.3 L 8.3 L Hct 27.0 L 26.4 L MCH 27 L RDW 19.0 H 19.7 H Plt Count 479 H 611 H Lymph % (Auto) [place] % (Auto) [place] # Baso # Seg Neutrophils % Seg Neuts % (Manual) 92.0 H Lymphocytes % (Manual) 2.0 L Monocytes % (Manual) Seg Neutrophils # Seg Neutrophils # Man 14.0 H Lymphocytes # (Manual) 0.3 L Monocytes # (Manual) Eosinophils # (Manual) Basophils # (Manual) PT INR APTT ABG pH ABG pO2 ABG HCO3 ABG O2 Saturation ABG Base Excess ABG Hemoglobin Oxyhemoglobin Sodium Potassium Chloride Carbon Dioxide BUN Creatinine Glucose POC Glucose 138 H Lactic Acid Calcium Ionized Calcium Phosphorus Magnesium Total Bilirubin AST ALT Alkaline Phosphatase Ammonia Total Creatine Kinase CK-MB (CK-2) CK-MB (CK-2) Rel Index Total Protein Albumin Urine WBC (Auto) Vancomycin Trough Salicylates Acetaminophen Plasma/Serum Alcohol Crossmatch 11/29/19 11/29/19 11/29/19 10:43 12:27 19:25 WBC RBC Hgb Hct MCH RDW Plt Count Lymph % (Auto) [place] % (Auto) [place] # Baso # Seg Neutrophils % Seg Neuts % (Manual) Lymphocytes % (Manual) Monocytes % (Manual) Seg Neutrophils # Seg Neutrophils # Man Lymphocytes # (Manual) Monocytes # (Manual) Eosinophils # (Manual) Basophils # (Manual) PT INR APTT ABG pH ABG pO2 ABG HCO3 ABG O2 Saturation ABG Base Excess ABG Hemoglobin Oxyhemoglobin Sodium Potassium 2.8 L* Chloride Carbon Dioxide BUN 20 H Creatinine 0.5 L Glucose 121 H POC Glucose 128 H 120 H Lactic Acid Calcium Ionized Calcium Phosphorus Magnesium Total Bilirubin AST ALT Alkaline Phosphatase Ammonia Total Creatine Kinase CK-MB (CK-2) CK-MB (CK-2) Rel Index Total Protein Albumin Urine WBC (Auto) Vancomycin Trough Salicylates Acetaminophen Plasma/Serum Alcohol Crossmatch 11/29/19 11/30/19 11/30/19 23:46 04:10 05:02 WBC RBC Hgb Hct MCH RDW Plt Count Lymph % (Auto) [place] % (Auto) [place] # Baso # Seg Neutrophils % Seg Neuts % (Manual) Lymphocytes % (Manual) Monocytes % (Manual) Seg Neutrophils # Seg Neutrophils # Man Lymphocytes # (Manual) Monocytes # (Manual) Eosinophils # (Manual) Basophils # (Manual) PT INR APTT ABG pH ABG pO2 76.3 L ABG HCO3 32.5 H ABG O2 Saturation ABG Base Excess 6.9 H ABG Hemoglobin 8.0 L Oxyhemoglobin 92.6 L Sodium Potassium Chloride Carbon Dioxide BUN Creatinine Glucose POC Glucose 116 H 128 H Lactic Acid Calcium Ionized Calcium Phosphorus Magnesium Total Bilirubin AST ALT Alkaline Phosphatase Ammonia Total Creatine Kinase CK-MB (CK-2) CK-MB (CK-2) Rel Index Total Protein Albumin Urine WBC (Auto) Vancomycin Trough Salicylates Acetaminophen Plasma/Serum Alcohol Crossmatch 11/30/19 11/30/19 11/30/19 05:25 05:25 12:59 WBC 18.4 H RBC 3.10 L Hgb 8.5 L Hct 27.5 L MCH 27 L RDW 20.9 H Plt Count 691 H Lymph % (Auto) 7.1 L [place] % (Auto) 7.7 H [place] # 1.4 H Baso # Seg Neutrophils % 83.4 H Seg Neuts % (Manual) Lymphocytes % (Manual) Monocytes % (Manual) Seg Neutrophils # 15.4 H Seg Neutrophils # Man Lymphocytes # (Manual) Monocytes # (Manual) Eosinophils # (Manual) Basophils # (Manual) PT INR APTT ABG pH ABG pO2 ABG HCO3 ABG O2 Saturation ABG Base Excess ABG Hemoglobin Oxyhemoglobin Sodium 146 H Potassium Chloride 107.2 H Carbon Dioxide BUN Creatinine 0.5 L Glucose 132 H POC Glucose 124 H Lactic Acid Calcium Ionized Calcium Phosphorus Magnesium Total Bilirubin AST 246 H ALT 274 H Alkaline Phosphatase 203 H Ammonia Total Creatine Kinase CK-MB (CK-2) CK-MB (CK-2) Rel Index Total Protein 5.4 L Albumin 2.9 L Urine WBC (Auto) Vancomycin Trough Salicylates Acetaminophen Plasma/Serum Alcohol Crossmatch 11/30/19 12/01/19 12/01/19 17:53 00:05 05:10 WBC RBC Hgb Hct MCH RDW Plt Count Lymph % (Auto) [place] % (Auto) [place] # Baso # Seg Neutrophils % Seg Neuts % (Manual) Lymphocytes % (Manual) Monocytes % (Manual) Seg Neutrophils # Seg Neutrophils # Man Lymphocytes # (Manual) Monocytes # (Manual) Eosinophils # (Manual) Basophils # (Manual) PT INR APTT ABG pH ABG pO2 ABG HCO3 ABG O2 Saturation ABG Base Excess ABG Hemoglobin Oxyhemoglobin Sodium Potassium Chloride Carbon Dioxide BUN Creatinine Glucose POC Glucose 113 H 143 H 145 H Lactic Acid Calcium Ionized Calcium Phosphorus Magnesium Total Bilirubin AST ALT Alkaline Phosphatase Ammonia Total Creatine Kinase CK-MB (CK-2) CK-MB (CK-2) Rel Index Total Protein Albumin Urine WBC (Auto) Vancomycin Trough Salicylates Acetaminophen Plasma/Serum Alcohol Crossmatch 12/01/19 12/01/19 12/01/19 05:33 08:23 08:23 WBC 22.7 H RBC 2.88 L Hgb 7.9 L Hct 25.2 L MCH 27 L RDW 21.0 H Plt Count 732 H Lymph % (Auto) [place] % (Auto) [place] # Baso # Seg Neutrophils % Seg Neuts % (Manual) 91.0 H Lymphocytes % (Manual) 3.0 L Monocytes % (Manual) Seg Neutrophils # Seg Neutrophils # Man 20.7 H Lymphocytes # (Manual) 0.7 L Monocytes # (Manual) 1.1 H Eosinophils # (Manual) Basophils # (Manual) PT INR APTT ABG pH ABG pO2 68.6 L ABG HCO3 34.1 H ABG O2 Saturation ABG Base Excess 9.0 H ABG Hemoglobin 6.5 L Oxyhemoglobin 94.7 L Sodium Potassium Chloride Carbon Dioxide BUN Creatinine 0.5 L Glucose 125 H POC Glucose Lactic Acid Calcium Ionized Calcium Phosphorus Magnesium Total Bilirubin AST ALT Alkaline Phosphatase Ammonia Total Creatine Kinase CK-MB (CK-2) CK-MB (CK-2) Rel Index Total Protein Albumin Urine WBC (Auto) Vancomycin Trough Salicylates Acetaminophen Plasma/Serum Alcohol Crossmatch 12/01/19 12/01/19 12/01/19 13:21 17:54 20:59 WBC RBC Hgb Hct MCH RDW Plt Count Lymph % (Auto) [place] % (Auto) [place] # Baso # Seg Neutrophils % Seg Neuts % (Manual) Lymphocytes % (Manual) Monocytes % (Manual) Seg Neutrophils # Seg Neutrophils # Man Lymphocytes # (Manual) Monocytes # (Manual) Eosinophils # (Manual) Basophils # (Manual) PT INR APTT ABG pH ABG pO2 78.3 L ABG HCO3 33.8 H ABG O2 Saturation 94.9 L ABG Base Excess 7.9 H ABG Hemoglobin 11.5 L Oxyhemoglobin 92.3 L Sodium Potassium Chloride Carbon Dioxide BUN Creatinine Glucose POC Glucose 111 H 115 H Lactic Acid Calcium Ionized Calcium Phosphorus Magnesium Total Bilirubin AST ALT Alkaline Phosphatase Ammonia Total Creatine Kinase CK-MB (CK-2) CK-MB (CK-2) Rel Index Total Protein Albumin Urine WBC (Auto) Vancomycin Trough Salicylates Acetaminophen Plasma/Serum Alcohol Crossmatch 12/02/19 12/03/19 12/04/19 12:55 20:00 04:26 WBC 15.2 H RBC 2.69 L Hgb 7.4 L Hct 23.6 L MCH 27 L RDW 19.9 H Plt Count 838 H Lymph % (Auto) [place] % (Auto) [place] # Baso # Seg Neutrophils % Seg Neuts % (Manual) Lymphocytes % (Manual) Monocytes % (Manual) Seg Neutrophils # Seg Neutrophils # Man Lymphocytes # (Manual) Monocytes # (Manual) Eosinophils # (Manual) Basophils # (Manual) PT INR APTT ABG pH ABG pO2 68.3 L ABG HCO3 33.5 H ABG O2 Saturation 93.5 L ABG Base Excess 8.4 H ABG Hemoglobin 7.3 L Oxyhemoglobin 90.9 L Sodium Potassium Chloride Carbon Dioxide BUN Creatinine Glucose POC Glucose 107 H Lactic Acid Calcium Ionized Calcium Phosphorus Magnesium Total Bilirubin AST ALT Alkaline Phosphatase Ammonia Total Creatine Kinase CK-MB (CK-2) CK-MB (CK-2) Rel Index Total Protein Albumin Urine WBC (Auto) Vancomycin Trough Salicylates Acetaminophen Plasma/Serum Alcohol Crossmatch 12/04/19 12/04/19 12/04/19 04:26 07:45 12:02 WBC 15.9 H RBC 2.88 L Hgb 7.9 L Hct 25.1 L MCH RDW 20.4 H Plt Count 839 H Lymph % (Auto) 11.3 L [place] % (Auto) 15.2 H [place] # 2.4 H Baso # Seg Neutrophils % 72.4 H Seg Neuts % (Manual) Lymphocytes % (Manual) Monocytes % (Manual) Seg Neutrophils # 11.5 H Seg Neutrophils # Man Lymphocytes # (Manual) Monocytes # (Manual) Eosinophils # (Manual) Basophils # (Manual) PT INR APTT ABG pH ABG pO2 ABG HCO3 ABG O2 Saturation ABG Base Excess ABG Hemoglobin Oxyhemoglobin Sodium Potassium Chloride 96.5 L Carbon Dioxide BUN 21 H Creatinine 0.6 L Glucose 107 H POC Glucose 138 H Lactic Acid Calcium Ionized Calcium Phosphorus Magnesium Total Bilirubin AST ALT Alkaline Phosphatase Ammonia Total Creatine Kinase CK-MB (CK-2) CK-MB (CK-2) Rel Index Total Protein Albumin Urine WBC (Auto) Vancomycin Trough Salicylates Acetaminophen Plasma/Serum Alcohol Crossmatch 12/04/19 12/05/19 12/05/19 18:16 11:55 18:36 WBC RBC Hgb Hct MCH RDW Plt Count Lymph % (Auto) [place] % (Auto) [place] # Baso # Seg Neutrophils % Seg Neuts % (Manual) Lymphocytes % (Manual) Monocytes % (Manual) Seg Neutrophils # Seg Neutrophils # Man Lymphocytes # (Manual) Monocytes # (Manual) Eosinophils # (Manual) Basophils # (Manual) PT INR APTT ABG pH ABG pO2 ABG HCO3 ABG O2 Saturation ABG Base Excess ABG Hemoglobin Oxyhemoglobin Sodium Potassium Chloride Carbon Dioxide BUN Creatinine Glucose POC Glucose 135 H 125 H 135 H Lactic Acid Calcium Ionized Calcium Phosphorus Magnesium Total Bilirubin AST ALT Alkaline Phosphatase Ammonia Total Creatine Kinase CK-MB (CK-2) CK-MB (CK-2) Rel Index Total Protein Albumin Urine WBC (Auto) Vancomycin Trough Salicylates Acetaminophen Plasma/Serum Alcohol Crossmatch 12/05/19 12/06/19 12/06/19 23:30 04:14 05:43 WBC RBC Hgb Hct MCH RDW Plt Count Lymph % (Auto) [place] % (Auto) [place] # Baso # Seg Neutrophils % Seg Neuts % (Manual) Lymphocytes % (Manual) Monocytes % (Manual) Seg Neutrophils # Seg Neutrophils # Man Lymphocytes # (Manual) Monocytes # (Manual) Eosinophils # (Manual) Basophils # (Manual) PT INR APTT ABG pH ABG pO2 ABG HCO3 ABG O2 Saturation ABG Base Excess ABG Hemoglobin Oxyhemoglobin Sodium Potassium 5.6 H Chloride 95.0 L Carbon Dioxide BUN 48 H Creatinine 1.3 H D Glucose POC Glucose 126 H 121 H Lactic Acid Calcium Ionized Calcium Phosphorus Magnesium Total Bilirubin AST 89 H ALT 98 H Alkaline Phosphatase 476 H Ammonia Total Creatine Kinase CK-MB (CK-2) CK-MB (CK-2) Rel Index Total Protein Albumin 2.8 L Urine WBC (Auto) Vancomycin Trough Salicylates Acetaminophen Plasma/Serum Alcohol Crossmatch 12/06/19 12/06/19 12/07/19 10:39 14:34 00:19 WBC 17.3 H RBC 2.60 L Hgb 7.1 L Hct 22.7 L MCH 27 L RDW 20.1 H Plt Count 832 H Lymph % (Auto) [place] % (Auto) [place] # Baso # Seg Neutrophils % Seg Neuts % (Manual) Lymphocytes % (Manual) Monocytes % (Manual) Seg Neutrophils # Seg Neutrophils # Man Lymphocytes # (Manual) Monocytes # (Manual) Eosinophils # (Manual) Basophils # (Manual) PT INR APTT ABG pH ABG pO2 ABG HCO3 ABG O2 Saturation ABG Base Excess ABG Hemoglobin Oxyhemoglobin Sodium Potassium Chloride Carbon Dioxide BUN Creatinine Glucose POC Glucose 128 H 136 H Lactic Acid Calcium Ionized Calcium Phosphorus Magnesium Total Bilirubin AST ALT Alkaline Phosphatase Ammonia Total Creatine Kinase CK-MB (CK-2) CK-MB (CK-2) Rel Index Total Protein Albumin Urine WBC (Auto) Vancomycin Trough Salicylates Acetaminophen Plasma/Serum Alcohol Crossmatch 12/07/19 12/07/19 12/07/19 03:44 03:44 05:53 WBC 16.2 H RBC 2.56 L Hgb 7.1 L Hct 22.3 L MCH RDW 19.4 H Plt Count 782 H Lymph % (Auto) [place] % (Auto) [place] # Baso # Seg Neutrophils % Seg Neuts % (Manual) Lymphocytes % (Manual) Monocytes % (Manual) Seg Neutrophils # Seg Neutrophils # Man Lymphocytes # (Manual) Monocytes # (Manual) Eosinophils # (Manual) Basophils # (Manual) PT INR APTT ABG pH ABG pO2 ABG HCO3 ABG O2 Saturation ABG Base Excess ABG Hemoglobin Oxyhemoglobin Sodium Potassium Chloride 95.6 L Carbon Dioxide BUN 56 H Creatinine 1.4 H Glucose 120 H POC Glucose 128 H Lactic Acid Calcium 10.3 H Ionized Calcium Phosphorus Magnesium Total Bilirubin AST ALT Alkaline Phosphatase Ammonia Total Creatine Kinase CK-MB (CK-2) CK-MB (CK-2) Rel Index Total Protein Albumin Urine WBC (Auto) Vancomycin Trough Salicylates Acetaminophen Plasma/Serum Alcohol Crossmatch 12/07/19 12/07/19 12/08/19 12:54 23:47 00:20 WBC RBC Hgb Hct MCH RDW Plt Count Lymph % (Auto) [place] % (Auto) [place] # Baso # Seg Neutrophils % Seg Neuts % (Manual) Lymphocytes % (Manual) Monocytes % (Manual) Seg Neutrophils # Seg Neutrophils # Man Lymphocytes # (Manual) Monocytes # (Manual) Eosinophils # (Manual) Basophils # (Manual) PT INR APTT ABG pH ABG pO2 ABG HCO3 ABG O2 Saturation ABG Base Excess ABG Hemoglobin Oxyhemoglobin Sodium Potassium Chloride Carbon Dioxide BUN Creatinine Glucose POC Glucose 128 H 130 H 124 H Lactic Acid Calcium Ionized Calcium Phosphorus Magnesium Total Bilirubin AST ALT Alkaline Phosphatase Ammonia Total Creatine Kinase CK-MB (CK-2) CK-MB (CK-2) Rel Index Total Protein Albumin Urine WBC (Auto) Vancomycin Trough Salicylates Acetaminophen Plasma/Serum Alcohol Crossmatch 12/08/19 12/08/19 12/08/19 06:38 12:04 18:26 WBC RBC Hgb Hct MCH RDW Plt Count Lymph % (Auto) [place] % (Auto) [place] # Baso # Seg Neutrophils % Seg Neuts % (Manual) Lymphocytes % (Manual) Monocytes % (Manual) Seg Neutrophils # Seg Neutrophils # Man Lymphocytes # (Manual) Monocytes # (Manual) Eosinophils # (Manual) Basophils # (Manual) PT INR APTT ABG pH ABG pO2 ABG HCO3 ABG O2 Saturation ABG Base Excess ABG Hemoglobin Oxyhemoglobin Sodium Potassium Chloride Carbon Dioxide BUN Creatinine Glucose POC Glucose 137 H 129 H 150 H Lactic Acid Calcium Ionized Calcium Phosphorus Magnesium Total Bilirubin AST ALT Alkaline Phosphatase Ammonia Total Creatine Kinase CK-MB (CK-2) CK-MB (CK-2) Rel Index Total Protein Albumin Urine WBC (Auto) Vancomycin Trough Salicylates Acetaminophen Plasma/Serum Alcohol Crossmatch 12/09/19 12/09/19 12/09/19 00:56 05:34 06:13 WBC RBC Hgb Hct MCH RDW Plt Count Lymph % (Auto) [place] % (Auto) [place] # Baso # Seg Neutrophils % Seg Neuts % (Manual) Lymphocytes % (Manual) Monocytes % (Manual) Seg Neutrophils # Seg Neutrophils # Man Lymphocytes # (Manual) Monocytes # (Manual) Eosinophils # (Manual) Basophils # (Manual) PT INR APTT ABG pH ABG pO2 ABG HCO3 ABG O2 Saturation ABG Base Excess ABG Hemoglobin Oxyhemoglobin Sodium 146 H Potassium Chloride Carbon Dioxide BUN 66 H Creatinine 1.9 H Glucose 116 H POC Glucose 130 H 130 H Lactic Acid Calcium Ionized Calcium Phosphorus Magnesium Total Bilirubin AST ALT Alkaline Phosphatase Ammonia Total Creatine Kinase CK-MB (CK-2) CK-MB (CK-2) Rel Index Total Protein Albumin Urine WBC (Auto) Vancomycin Trough Salicylates Acetaminophen Plasma/Serum Alcohol Crossmatch 12/09/19 12/09/19 12/10/19 11:52 17:50 00:14 WBC RBC Hgb Hct MCH RDW Plt Count Lymph % (Auto) [place] % (Auto) [place] # Baso # Seg Neutrophils % Seg Neuts % (Manual) Lymphocytes % (Manual) Monocytes % (Manual) Seg Neutrophils # Seg Neutrophils # Man Lymphocytes # (Manual) Monocytes # (Manual) Eosinophils # (Manual) Basophils # (Manual) PT INR APTT ABG pH ABG pO2 ABG HCO3 ABG O2 Saturation ABG Base Excess ABG Hemoglobin Oxyhemoglobin Sodium Potassium Chloride Carbon Dioxide BUN Creatinine Glucose POC Glucose 135 H 120 H 116 H Lactic Acid Calcium Ionized Calcium Phosphorus Magnesium Total Bilirubin AST ALT Alkaline Phosphatase Ammonia Total Creatine Kinase CK-MB (CK-2) CK-MB (CK-2) Rel Index Total Protein Albumin Urine WBC (Auto) Vancomycin Trough Salicylates Acetaminophen Plasma/Serum Alcohol Crossmatch 12/10/19 12/10/19 12/10/19 05:38 11:38 17:34 WBC RBC Hgb Hct MCH RDW Plt Count Lymph % (Auto) [place] % (Auto) [place] # Baso # Seg Neutrophils % Seg Neuts % (Manual) Lymphocytes % (Manual) Monocytes % (Manual) Seg Neutrophils # Seg Neutrophils # Man Lymphocytes # (Manual) Monocytes # (Manual) Eosinophils # (Manual) Basophils # (Manual) PT INR APTT ABG pH ABG pO2 ABG HCO3 ABG O2 Saturation ABG Base Excess ABG Hemoglobin Oxyhemoglobin Sodium Potassium Chloride Carbon Dioxide BUN Creatinine Glucose POC Glucose 115 H 112 H 130 H Lactic Acid Calcium Ionized Calcium Phosphorus Magnesium Total Bilirubin AST ALT Alkaline Phosphatase Ammonia Total Creatine Kinase CK-MB (CK-2) CK-MB (CK-2) Rel Index Total Protein Albumin Urine WBC (Auto) Vancomycin Trough Salicylates Acetaminophen Plasma/Serum Alcohol Crossmatch 12/11/19 12/11/19 12/11/19 00:20 05:31 12:22 WBC RBC Hgb Hct MCH RDW Plt Count Lymph % (Auto) [place] % (Auto) [place] # Baso # Seg Neutrophils % Seg Neuts % (Manual) Lymphocytes % (Manual) Monocytes % (Manual) Seg Neutrophils # Seg Neutrophils # Man Lymphocytes # (Manual) Monocytes # (Manual) Eosinophils # (Manual) Basophils # (Manual) PT INR APTT ABG pH ABG pO2 ABG HCO3 ABG O2 Saturation ABG Base Excess ABG Hemoglobin Oxyhemoglobin Sodium Potassium Chloride Carbon Dioxide BUN Creatinine Glucose POC Glucose 124 H 132 H 128 H Lactic Acid Calcium Ionized Calcium Phosphorus Magnesium Total Bilirubin AST ALT Alkaline Phosphatase Ammonia Total Creatine Kinase CK-MB (CK-2) CK-MB (CK-2) Rel Index Total Protein Albumin Urine WBC (Auto) Vancomycin Trough Salicylates Acetaminophen Plasma/Serum Alcohol Crossmatch 12/11/19 12/11/19 12/12/19 18:04 23:42 03:51 WBC RBC Hgb Hct MCH RDW Plt Count Lymph % (Auto) [place] % (Auto) [place] # Baso # Seg Neutrophils % Seg Neuts % (Manual) Lymphocytes % (Manual) Monocytes % (Manual) Seg Neutrophils # Seg Neutrophils # Man Lymphocytes # (Manual) Monocytes # (Manual) Eosinophils # (Manual) Basophils # (Manual) PT INR APTT ABG pH ABG pO2 ABG HCO3 ABG O2 Saturation ABG Base Excess ABG Hemoglobin Oxyhemoglobin Sodium 149 H Potassium Chloride Carbon Dioxide 20 L D BUN 77 H Creatinine 2.8 H Glucose POC Glucose 133 H 154 H Lactic Acid Calcium Ionized Calcium Phosphorus Magnesium Total Bilirubin AST ALT Alkaline Phosphatase Ammonia Total Creatine Kinase CK-MB (CK-2) CK-MB (CK-2) Rel Index Total Protein Albumin Urine WBC (Auto) Vancomycin Trough Salicylates Acetaminophen Plasma/Serum Alcohol Crossmatch 12/12/19 12/12/19 12/12/19 05:18 05:26 10:30 WBC 18.0 H RBC 2.51 L Hgb 6.8 L Hct 22.0 L MCH 27 L RDW 19.9 H Plt Count 582 H Lymph % (Auto) [place] % (Auto) [place] # Baso # Seg Neutrophils % Seg Neuts % (Manual) Lymphocytes % (Manual) Monocytes % (Manual) Seg Neutrophils # Seg Neutrophils # Man Lymphocytes # (Manual) Monocytes # (Manual) Eosinophils # (Manual) Basophils # (Manual) PT INR APTT ABG pH ABG pO2 ABG HCO3 ABG O2 Saturation ABG Base Excess ABG Hemoglobin Oxyhemoglobin Sodium Potassium Chloride Carbon Dioxide BUN Creatinine Glucose POC Glucose 135 H Lactic Acid Calcium Ionized Calcium Phosphorus Magnesium Total Bilirubin AST ALT Alkaline Phosphatase Ammonia Total Creatine Kinase CK-MB (CK-2) CK-MB (CK-2) Rel Index Total Protein Albumin Urine WBC (Auto) Vancomycin Trough Salicylates Acetaminophen Plasma/Serum Alcohol Crossmatch See Detail 12/12/19 12/12/19 12/12/19 11:44 18:10 23:21 WBC RBC Hgb Hct MCH RDW Plt Count Lymph % (Auto) [place] % (Auto) [place] # Baso # Seg Neutrophils % Seg Neuts % (Manual) Lymphocytes % (Manual) Monocytes % (Manual) Seg Neutrophils # Seg Neutrophils # Man Lymphocytes # (Manual) Monocytes # (Manual) Eosinophils # (Manual) Basophils # (Manual) PT INR APTT ABG pH ABG pO2 ABG HCO3 ABG O2 Saturation ABG Base Excess ABG Hemoglobin Oxyhemoglobin Sodium Potassium Chloride Carbon Dioxide BUN Creatinine Glucose POC Glucose 108 H 107 H 126 H Lactic Acid Calcium Ionized Calcium Phosphorus Magnesium Total Bilirubin AST ALT Alkaline Phosphatase Ammonia Total Creatine Kinase CK-MB (CK-2) CK-MB (CK-2) Rel Index Total Protein Albumin Urine WBC (Auto) Vancomycin Trough Salicylates Acetaminophen Plasma/Serum Alcohol Crossmatch 12/13/19 12/13/19 12/13/19 05:41 07:48 07:48 WBC 38.3 H RBC 2.37 L Hgb 6.3 L Hct 20.9 L MCH 27 L RDW 20.2 H Plt Count 546 H Lymph % (Auto) [place] % (Auto) [place] # Baso # Seg Neutrophils % Seg Neuts % (Manual) 93.0 H Lymphocytes % (Manual) 1.0 L Monocytes % (Manual) Seg Neutrophils # Seg Neutrophils # Man 35.6 H Lymphocytes # (Manual) 0.4 L Monocytes # (Manual) Eosinophils # (Manual) Basophils # (Manual) 0.4 H PT INR APTT ABG pH ABG pO2 ABG HCO3 ABG O2 Saturation ABG Base Excess ABG Hemoglobin Oxyhemoglobin Sodium 152 H Potassium 3.1 L D Chloride 111.9 H Carbon Dioxide 21 L BUN 53 H Creatinine 1.9 H Glucose 141 H POC Glucose 128 H Lactic Acid Calcium Ionized Calcium Phosphorus Magnesium Total Bilirubin AST ALT Alkaline Phosphatase 316 H Ammonia Total Creatine Kinase CK-MB (CK-2) CK-MB (CK-2) Rel Index Total Protein Albumin 2.4 L Urine WBC (Auto) Vancomycin Trough Salicylates Acetaminophen Plasma/Serum Alcohol Crossmatch 12/13/19 12/13/19 12/14/19 18:17 23:19 05:36 WBC RBC Hgb Hct MCH RDW Plt Count Lymph % (Auto) [place] % (Auto) [place] # Baso # Seg Neutrophils % Seg Neuts % (Manual) Lymphocytes % (Manual) Monocytes % (Manual) Seg Neutrophils # Seg Neutrophils # Man Lymphocytes # (Manual) Monocytes # (Manual) Eosinophils # (Manual) Basophils # (Manual) PT INR APTT ABG pH ABG pO2 ABG HCO3 ABG O2 Saturation ABG Base Excess ABG Hemoglobin Oxyhemoglobin Sodium Potassium Chloride Carbon Dioxide BUN Creatinine Glucose POC Glucose 141 H 158 H 182 H Lactic Acid Calcium Ionized Calcium Phosphorus Magnesium Total Bilirubin AST ALT Alkaline Phosphatase Ammonia Total Creatine Kinase CK-MB (CK-2) CK-MB (CK-2) Rel Index Total Protein Albumin Urine WBC (Auto) Vancomycin Trough Salicylates Acetaminophen Plasma/Serum Alcohol Crossmatch 12/14/19 12/14/19 12/14/19 08:48 08:48 10:31 WBC 33.3 H RBC 2.70 L Hgb 7.9 L 8.0 L Hct 25.3 L 24.0 L MCH RDW 19.2 H Plt Count 476 H Lymph % (Auto) [place] % (Auto) [place] # Baso # Seg Neutrophils % Seg Neuts % (Manual) Lymphocytes % (Manual) Monocytes % (Manual) Seg Neutrophils # Seg Neutrophils # Man Lymphocytes # (Manual) Monocytes # (Manual) Eosinophils # (Manual) Basophils # (Manual) PT INR APTT ABG pH ABG pO2 ABG HCO3 ABG O2 Saturation ABG Base Excess ABG Hemoglobin Oxyhemoglobin Sodium 153 H Potassium 2.5 L* Chloride 114.9 H Carbon Dioxide 20 L BUN 38 H Creatinine 1.4 H Glucose 177 H POC Glucose Lactic Acid Calcium Ionized Calcium Phosphorus Magnesium Total Bilirubin AST ALT Alkaline Phosphatase Ammonia Total Creatine Kinase CK-MB (CK-2) CK-MB (CK-2) Rel Index Total Protein Albumin Urine WBC (Auto) Vancomycin Trough Salicylates Acetaminophen Plasma/Serum Alcohol Crossmatch 12/14/19 12/14/19 12/14/19 12:57 16:15 17:50 WBC RBC Hgb Hct MCH RDW Plt Count Lymph % (Auto) [place] % (Auto) [place] # Baso # Seg Neutrophils % Seg Neuts % (Manual) Lymphocytes % (Manual) Monocytes % (Manual) Seg Neutrophils # Seg Neutrophils # Man Lymphocytes # (Manual) Monocytes # (Manual) Eosinophils # (Manual) Basophils # (Manual) PT INR APTT ABG pH ABG pO2 73.6 L ABG HCO3 ABG O2 Saturation ABG Base Excess ABG Hemoglobin 7.6 L Oxyhemoglobin 94.0 L Sodium Potassium Chloride Carbon Dioxide BUN Creatinine Glucose POC Glucose 174 H 150 H Lactic Acid Calcium Ionized Calcium Phosphorus Magnesium Total Bilirubin AST ALT Alkaline Phosphatase Ammonia Total Creatine Kinase CK-MB (CK-2) CK-MB (CK-2) Rel Index Total Protein Albumin Urine WBC (Auto) Vancomycin Trough Salicylates Acetaminophen Plasma/Serum Alcohol Crossmatch 12/15/19 12/15/19 12/15/19 00:28 05:27 07:23 WBC 30.0 H RBC 3.11 L Hgb 8.6 L Hct 27.7 L MCH RDW 20.0 H Plt Count 473 H Lymph % (Auto) [place] % (Auto) [place] # Baso # Seg Neutrophils % Seg Neuts % (Manual) Lymphocytes % (Manual) Monocytes % (Manual) Seg Neutrophils # Seg Neutrophils # Man Lymphocytes # (Manual) Monocytes # (Manual) Eosinophils # (Manual) Basophils # (Manual) PT INR APTT ABG pH ABG pO2 ABG HCO3 ABG O2 Saturation ABG Base Excess ABG Hemoglobin Oxyhemoglobin Sodium Potassium Chloride Carbon Dioxide BUN Creatinine Glucose POC Glucose 167 H 148 H Lactic Acid Calcium Ionized Calcium Phosphorus Magnesium Total Bilirubin AST ALT Alkaline Phosphatase Ammonia Total Creatine Kinase CK-MB (CK-2) CK-MB (CK-2) Rel Index Total Protein Albumin Urine WBC (Auto) Vancomycin Trough Salicylates Acetaminophen Plasma/Serum Alcohol Crossmatch 12/15/19 12/15/19 12/15/19 07:23 12:21 17:41 WBC RBC Hgb Hct MCH RDW Plt Count Lymph % (Auto) [place] % (Auto) [place] # Baso # Seg Neutrophils % Seg Neuts % (Manual) Lymphocytes % (Manual) Monocytes % (Manual) Seg Neutrophils # Seg Neutrophils # Man Lymphocytes # (Manual) Monocytes # (Manual) Eosinophils # (Manual) Basophils # (Manual) PT INR APTT ABG pH ABG pO2 ABG HCO3 ABG O2 Saturation ABG Base Excess ABG Hemoglobin Oxyhemoglobin Sodium 147 H Potassium 3.5 L D Chloride 111.2 H Carbon Dioxide 19 L BUN 29 H Creatinine Glucose 126 H POC Glucose 154 H 144 H Lactic Acid Calcium Ionized Calcium Phosphorus Magnesium Total Bilirubin AST ALT Alkaline Phosphatase Ammonia Total Creatine Kinase CK-MB (CK-2) CK-MB (CK-2) Rel Index Total Protein Albumin Urine WBC (Auto) Vancomycin Trough Salicylates Acetaminophen Plasma/Serum Alcohol Crossmatch 12/16/19 12/16/19 12/16/19 00:22 05:30 05:44 WBC 30.8 H RBC 2.58 L Hgb 7.1 L Hct 22.7 L MCH RDW 19.6 H Plt Count 451 H Lymph % (Auto) [place] % (Auto) [place] # Baso # Seg Neutrophils % Seg Neuts % (Manual) Lymphocytes % (Manual) Monocytes % (Manual) Seg Neutrophils # Seg Neutrophils # Man Lymphocytes # (Manual) Monocytes # (Manual) Eosinophils # (Manual) Basophils # (Manual) PT INR APTT ABG pH ABG pO2 ABG HCO3 ABG O2 Saturation ABG Base Excess ABG Hemoglobin Oxyhemoglobin Sodium Potassium Chloride Carbon Dioxide BUN Creatinine Glucose POC Glucose 139 H 126 H Lactic Acid Calcium Ionized Calcium Phosphorus Magnesium Total Bilirubin AST ALT Alkaline Phosphatase Ammonia Total Creatine Kinase CK-MB (CK-2) CK-MB (CK-2) Rel Index Total Protein Albumin Urine WBC (Auto) Vancomycin Trough Salicylates Acetaminophen Plasma/Serum Alcohol Crossmatch 12/16/19 12/16/19 12/16/19 05:44 11:48 17:37 WBC RBC Hgb Hct MCH RDW Plt Count Lymph % (Auto) [place] % (Auto) [place] # Baso # Seg Neutrophils % Seg Neuts % (Manual) Lymphocytes % (Manual) Monocytes % (Manual) Seg Neutrophils # Seg Neutrophils # Man Lymphocytes # (Manual) Monocytes # (Manual) Eosinophils # (Manual) Basophils # (Manual) PT INR APTT ABG pH ABG pO2 ABG HCO3 ABG O2 Saturation ABG Base Excess ABG Hemoglobin Oxyhemoglobin Sodium Potassium 3.4 L Chloride 109.2 H Carbon Dioxide 19 L BUN 27 H Creatinine Glucose 124 H POC Glucose 125 H 148 H Lactic Acid Calcium Ionized Calcium Phosphorus Magnesium Total Bilirubin AST ALT Alkaline Phosphatase Ammonia Total Creatine Kinase CK-MB (CK-2) CK-MB (CK-2) Rel Index Total Protein Albumin Urine WBC (Auto) Vancomycin Trough Salicylates Acetaminophen Plasma/Serum Alcohol Crossmatch 12/16/19 12/17/19 12/17/19 23:43 05:28 12:47 WBC RBC Hgb Hct MCH RDW Plt Count Lymph % (Auto) [place] % (Auto) [place] # Baso # Seg Neutrophils % Seg Neuts % (Manual) Lymphocytes % (Manual) Monocytes % (Manual) Seg Neutrophils # Seg Neutrophils # Man Lymphocytes # (Manual) Monocytes # (Manual) Eosinophils # (Manual) Basophils # (Manual) PT INR APTT ABG pH ABG pO2 ABG HCO3 ABG O2 Saturation ABG Base Excess ABG Hemoglobin Oxyhemoglobin Sodium Potassium Chloride Carbon Dioxide BUN Creatinine Glucose POC Glucose 142 H 140 H 125 H Lactic Acid Calcium Ionized Calcium Phosphorus Magnesium Total Bilirubin AST ALT Alkaline Phosphatase Ammonia Total Creatine Kinase CK-MB (CK-2) CK-MB (CK-2) Rel Index Total Protein Albumin Urine WBC (Auto) Vancomycin Trough Salicylates Acetaminophen Plasma/Serum Alcohol Crossmatch 12/17/19 12/17/19 12/17/19 17:05 18:00 Unknown WBC RBC Hgb Hct MCH RDW Plt Count Lymph % (Auto) [place] % (Auto) [place] # Baso # Seg Neutrophils % Seg Neuts % (Manual) Lymphocytes % (Manual) Monocytes % (Manual) Seg Neutrophils # Seg Neutrophils # Man Lymphocytes # (Manual) Monocytes # (Manual) Eosinophils # (Manual) Basophils # (Manual) PT INR APTT ABG pH ABG pO2 68.1 L ABG HCO3 ABG O2 Saturation 93.7 L ABG Base Excess ABG Hemoglobin 5.0 L Oxyhemoglobin 91.7 L Sodium Potassium Chloride Carbon Dioxide BUN Creatinine Glucose POC Glucose 140 H Lactic Acid Calcium Ionized Calcium Phosphorus Magnesium Total Bilirubin AST ALT Alkaline Phosphatase Ammonia Total Creatine Kinase CK-MB (CK-2) CK-MB (CK-2) Rel Index Total Protein Albumin Urine WBC (Auto) Vancomycin Trough Salicylates Acetaminophen Plasma/Serum Alcohol Crossmatch 12/18/19 12/18/19 12/18/19 00:16 04:53 04:53 WBC 28.6 H RBC 2.27 L Hgb 6.3 L Hct 19.5 L* MCH RDW 20.0 H Plt Count 497 H Lymph % (Auto) [place] % (Auto) [place] # Baso # Seg Neutrophils % Seg Neuts % (Manual) Lymphocytes % (Manual) Monocytes % (Manual) Seg Neutrophils # Seg Neutrophils # Man Lymphocytes # (Manual) Monocytes # (Manual) Eosinophils # (Manual) Basophils # (Manual) PT INR APTT ABG pH ABG pO2 ABG HCO3 ABG O2 Saturation ABG Base Excess ABG Hemoglobin Oxyhemoglobin Sodium Potassium Chloride 107.9 H Carbon Dioxide 20 L BUN 27 H Creatinine 0.6 L Glucose 116 H POC Glucose 123 H Lactic Acid Calcium Ionized Calcium Phosphorus Magnesium Total Bilirubin AST ALT Alkaline Phosphatase Ammonia Total Creatine Kinase CK-MB (CK-2) CK-MB (CK-2) Rel Index Total Protein Albumin Urine WBC (Auto) Vancomycin Trough Salicylates Acetaminophen Plasma/Serum Alcohol Crossmatch 12/18/19 12/18/19 12/18/19 06:38 11:22 12:08 WBC RBC Hgb Hct MCH RDW Plt Count Lymph % (Auto) [place] % (Auto) [place] # Baso # Seg Neutrophils % Seg Neuts % (Manual) Lymphocytes % (Manual) Monocytes % (Manual) Seg Neutrophils # Seg Neutrophils # Man Lymphocytes # (Manual) Monocytes # (Manual) Eosinophils # (Manual) Basophils # (Manual) PT INR APTT ABG pH ABG pO2 ABG HCO3 ABG O2 Saturation ABG Base Excess ABG Hemoglobin Oxyhemoglobin Sodium Potassium Chloride Carbon Dioxide BUN Creatinine Glucose POC Glucose 120 H 127 H Lactic Acid Calcium Ionized Calcium Phosphorus Magnesium Total Bilirubin AST ALT Alkaline Phosphatase Ammonia Total Creatine Kinase CK-MB (CK-2) CK-MB (CK-2) Rel Index Total Protein Albumin Urine WBC (Auto) Vancomycin Trough Salicylates Acetaminophen Plasma/Serum Alcohol Crossmatch See Detail 12/18/19 12/18/19 12/18/19 14:05 17:49 23:53 WBC RBC Hgb Hct MCH RDW Plt Count Lymph % (Auto) [place] % (Auto) [place] # Baso # Seg Neutrophils % Seg Neuts % (Manual) Lymphocytes % (Manual) Monocytes % (Manual) Seg Neutrophils # Seg Neutrophils # Man Lymphocytes # (Manual) Monocytes # (Manual) Eosinophils # (Manual) Basophils # (Manual) PT INR APTT ABG pH 7.267 L ABG pO2 69.8 L ABG HCO3 ABG O2 Saturation 88.4 L ABG Base Excess ABG Hemoglobin 7.1 L Oxyhemoglobin 86.4 L Sodium Potassium Chloride Carbon Dioxide BUN Creatinine Glucose POC Glucose 157 H 128 H Lactic Acid Calcium Ionized Calcium Phosphorus Magnesium Total Bilirubin AST ALT Alkaline Phosphatase Ammonia Total Creatine Kinase CK-MB (CK-2) CK-MB (CK-2) Rel Index Total Protein Albumin Urine WBC (Auto) Vancomycin Trough Salicylates Acetaminophen Plasma/Serum Alcohol Crossmatch 12/19/19 12/19/19 12/19/19 03:37 03:37 05:25 WBC 31.3 H RBC 2.60 L Hgb 7.6 L Hct 23.0 L MCH RDW 19.4 H Plt Count 530 H Lymph % (Auto) [place] % (Auto) [place] # Baso # Seg Neutrophils % Seg Neuts % (Manual) Lymphocytes % (Manual) Monocytes % (Manual) Seg Neutrophils # Seg Neutrophils # Man Lymphocytes # (Manual) Monocytes # (Manual) Eosinophils # (Manual) Basophils # (Manual) PT INR APTT ABG pH ABG pO2 ABG HCO3 ABG O2 Saturation ABG Base Excess ABG Hemoglobin Oxyhemoglobin Sodium Potassium Chloride Carbon Dioxide 18 L BUN 36 H Creatinine Glucose 111 H POC Glucose 123 H Lactic Acid Calcium Ionized Calcium Phosphorus Magnesium Total Bilirubin AST ALT Alkaline Phosphatase Ammonia Total Creatine Kinase CK-MB (CK-2) CK-MB (CK-2) Rel Index Total Protein Albumin Urine WBC (Auto) Vancomycin Trough Salicylates Acetaminophen Plasma/Serum Alcohol Crossmatch 12/19/19 12/19/19 12/20/19 12:59 18:33 00:00 WBC RBC Hgb Hct MCH RDW Plt Count Lymph % (Auto) [place] % (Auto) [place] # Baso # Seg Neutrophils % Seg Neuts % (Manual) Lymphocytes % (Manual) Monocytes % (Manual) Seg Neutrophils # Seg Neutrophils # Man Lymphocytes # (Manual) Monocytes # (Manual) Eosinophils # (Manual) Basophils # (Manual) PT INR APTT ABG pH ABG pO2 ABG HCO3 ABG O2 Saturation ABG Base Excess ABG Hemoglobin Oxyhemoglobin Sodium Potassium Chloride Carbon Dioxide BUN Creatinine Glucose POC Glucose 130 H 118 H 135 H Lactic Acid Calcium Ionized Calcium Phosphorus Magnesium Total Bilirubin AST ALT Alkaline Phosphatase Ammonia Total Creatine Kinase CK-MB (CK-2) CK-MB (CK-2) Rel Index Total Protein Albumin Urine WBC (Auto) Vancomycin Trough Salicylates Acetaminophen Plasma/Serum Alcohol Crossmatch 12/20/19 12/20/19 12/20/19 05:46 12:31 18:07 WBC RBC Hgb Hct MCH RDW Plt Count Lymph % (Auto) [place] % (Auto) [place] # Baso # Seg Neutrophils % Seg Neuts % (Manual) Lymphocytes % (Manual) Monocytes % (Manual) Seg Neutrophils # Seg Neutrophils # Man Lymphocytes # (Manual) Monocytes # (Manual) Eosinophils # (Manual) Basophils # (Manual) PT INR APTT ABG pH ABG pO2 ABG HCO3 ABG O2 Saturation ABG Base Excess ABG Hemoglobin Oxyhemoglobin Sodium Potassium Chloride Carbon Dioxide BUN Creatinine Glucose POC Glucose 131 H 128 H 134 H Lactic Acid Calcium Ionized Calcium Phosphorus Magnesium Total Bilirubin AST ALT Alkaline Phosphatase Ammonia Total Creatine Kinase CK-MB (CK-2) CK-MB (CK-2) Rel Index Total Protein Albumin Urine WBC (Auto) Vancomycin Trough Salicylates Acetaminophen Plasma/Serum Alcohol Crossmatch 12/21/19 12/21/19 12/21/19 03:28 03:28 07:21 WBC 29.4 H RBC 2.30 L Hgb 6.8 L Hct 20.2 L MCH RDW 20.2 H Plt Count 746 H Lymph % (Auto) [place] % (Auto) [place] # Baso # Seg Neutrophils % Seg Neuts % (Manual) 85.0 H Lymphocytes % (Manual) 8.0 L Monocytes % (Manual) Seg Neutrophils # Seg Neutrophils # Man 25.0 H Lymphocytes # (Manual) Monocytes # (Manual) 1.5 H Eosinophils # (Manual) 0.6 H Basophils # (Manual) PT INR APTT ABG pH ABG pO2 ABG HCO3 ABG O2 Saturation ABG Base Excess ABG Hemoglobin Oxyhemoglobin Sodium Potassium Chloride Carbon Dioxide 17 L BUN 57 H Creatinine 1.4 H D Glucose POC Glucose 124 H Lactic Acid Calcium Ionized Calcium Phosphorus Magnesium Total Bilirubin AST ALT Alkaline Phosphatase Ammonia Total Creatine Kinase CK-MB (CK-2) CK-MB (CK-2) Rel Index Total Protein Albumin Urine WBC (Auto) Vancomycin Trough Salicylates Acetaminophen Plasma/Serum Alcohol Crossmatch 12/21/19 12/21/19 12/21/19 08:56 12:06 14:53 WBC RBC Hgb 7.2 L Hct 22.9 L MCH RDW Plt Count Lymph % (Auto) [place] % (Auto) [place] # Baso # Seg Neutrophils % Seg Neuts % (Manual) Lymphocytes % (Manual) Monocytes % (Manual) Seg Neutrophils # Seg Neutrophils # Man Lymphocytes # (Manual) Monocytes # (Manual) Eosinophils # (Manual) Basophils # (Manual) PT INR APTT ABG pH ABG pO2 ABG HCO3 ABG O2 Saturation ABG Base Excess ABG Hemoglobin Oxyhemoglobin Sodium Potassium Chloride Carbon Dioxide BUN Creatinine Glucose POC Glucose 116 H Lactic Acid Calcium Ionized Calcium Phosphorus Magnesium Total Bilirubin AST ALT Alkaline Phosphatase Ammonia Total Creatine Kinase CK-MB (CK-2) CK-MB (CK-2) Rel Index Total Protein Albumin Urine WBC (Auto) Vancomycin Trough 33.8 H Salicylates Acetaminophen Plasma/Serum Alcohol Crossmatch 12/21/19 12/21/19 12/21/19 14:54 17:27 23:49 WBC RBC Hgb Hct MCH RDW Plt Count Lymph % (Auto) [place] % (Auto) [place] # Baso # Seg Neutrophils % Seg Neuts % (Manual) Lymphocytes % (Manual) Monocytes % (Manual) Seg Neutrophils # Seg Neutrophils # Man Lymphocytes # (Manual) Monocytes # (Manual) Eosinophils # (Manual) Basophils # (Manual) PT INR APTT ABG pH ABG pO2 ABG HCO3 ABG O2 Saturation ABG Base Excess ABG Hemoglobin Oxyhemoglobin Sodium Potassium Chloride Carbon Dioxide BUN Creatinine Glucose POC Glucose 145 H 127 H Lactic Acid Calcium Ionized Calcium Phosphorus Magnesium Total Bilirubin AST ALT Alkaline Phosphatase Ammonia Total Creatine Kinase CK-MB (CK-2) CK-MB (CK-2) Rel Index Total Protein Albumin Urine WBC (Auto) Vancomycin Trough Salicylates Acetaminophen Plasma/Serum Alcohol Crossmatch See Detail 12/22/19 12/22/19 12/22/19 04:43 05:56 08:40 WBC RBC Hgb Hct MCH RDW Plt Count Lymph % (Auto) [place] % (Auto) [place] # Baso # Seg Neutrophils % Seg Neuts % (Manual) Lymphocytes % (Manual) Monocytes % (Manual) Seg Neutrophils # Seg Neutrophils # Man Lymphocytes # (Manual) Monocytes # (Manual) Eosinophils # (Manual) Basophils # (Manual) PT INR APTT ABG pH ABG pO2 75.6 L ABG HCO3 ABG O2 Saturation ABG Base Excess -2.6 L ABG Hemoglobin 6.8 L Oxyhemoglobin 94.6 L Sodium Potassium Chloride Carbon Dioxide 17 L BUN 60 H Creatinine 1.4 H Glucose 126 H POC Glucose 153 H Lactic Acid Calcium Ionized Calcium Phosphorus Magnesium Total Bilirubin AST ALT Alkaline Phosphatase Ammonia Total Creatine Kinase CK-MB (CK-2) CK-MB (CK-2) Rel Index Total Protein Albumin Urine WBC (Auto) Vancomycin Trough Salicylates Acetaminophen Plasma/Serum Alcohol Crossmatch 12/22/19 12/22/19 12/23/19 12:07 17:49 04:30 WBC 22.4 H RBC 2.68 L Hgb 7.6 L Hct 22.9 L MCH RDW 19.9 H Plt Count 998 H Lymph % (Auto) [place] % (Auto) [place] # Baso # Seg Neutrophils % Seg Neuts % (Manual) 88.0 H Lymphocytes % (Manual) 2.0 L Monocytes % (Manual) 9.0 H Seg Neutrophils # Seg Neutrophils # Man 19.7 H Lymphocytes # (Manual) 0.4 L Monocytes # (Manual) 2.0 H Eosinophils # (Manual) Basophils # (Manual) PT INR APTT ABG pH ABG pO2 ABG HCO3 ABG O2 Saturation ABG Base Excess ABG Hemoglobin Oxyhemoglobin Sodium Potassium Chloride Carbon Dioxide BUN Creatinine Glucose POC Glucose 140 H 116 H Lactic Acid Calcium Ionized Calcium Phosphorus Magnesium Total Bilirubin AST ALT Alkaline Phosphatase Ammonia Total Creatine Kinase CK-MB (CK-2) CK-MB (CK-2) Rel Index Total Protein Albumin Urine WBC (Auto) Vancomycin Trough Salicylates Acetaminophen Plasma/Serum Alcohol Crossmatch 12/23/19 12/23/19 12/23/19 04:30 12:00 18:06 WBC RBC Hgb Hct MCH RDW Plt Count Lymph % (Auto) [place] % (Auto) [place] # Baso # Seg Neutrophils % Seg Neuts % (Manual) Lymphocytes % (Manual) Monocytes % (Manual) Seg Neutrophils # Seg Neutrophils # Man Lymphocytes # (Manual) Monocytes # (Manual) Eosinophils # (Manual) Basophils # (Manual) PT INR APTT ABG pH ABG pO2 ABG HCO3 ABG O2 Saturation ABG Base Excess ABG Hemoglobin Oxyhemoglobin Sodium Potassium 5.2 H Chloride Carbon Dioxide 21 L BUN 69 H Creatinine 1.5 H Glucose 117 H POC Glucose 128 H 138 H Lactic Acid Calcium Ionized Calcium Phosphorus Magnesium Total Bilirubin AST ALT Alkaline Phosphatase Ammonia Total Creatine Kinase CK-MB (CK-2) CK-MB (CK-2) Rel Index Total Protein Albumin Urine WBC (Auto) Vancomycin Trough Salicylates Acetaminophen Plasma/Serum Alcohol Crossmatch 12/23/19 12/24/19 12/24/19 23:46 04:31 05:08 WBC RBC Hgb Hct MCH RDW Plt Count Lymph % (Auto) [place] % (Auto) [place] # Baso # Seg Neutrophils % Seg Neuts % (Manual) Lymphocytes % (Manual) Monocytes % (Manual) Seg Neutrophils # Seg Neutrophils # Man Lymphocytes # (Manual) Monocytes # (Manual) Eosinophils # (Manual) Basophils # (Manual) PT INR APTT ABG pH ABG pO2 ABG HCO3 ABG O2 Saturation ABG Base Excess ABG Hemoglobin Oxyhemoglobin Sodium Potassium 5.3 H Chloride 107.6 H Carbon Dioxide 20 L BUN 72 H Creatinine 1.6 H Glucose 120 H POC Glucose 120 H 140 H Lactic Acid Calcium Ionized Calcium Phosphorus Magnesium Total Bilirubin AST ALT Alkaline Phosphatase Ammonia Total Creatine Kinase CK-MB (CK-2) CK-MB (CK-2) Rel Index Total Protein Albumin Urine WBC (Auto) Vancomycin Trough Salicylates Acetaminophen Plasma/Serum Alcohol Crossmatch 12/24/19 12/24/19 12/25/19 11:58 17:49 03:47 WBC 36.2 H RBC 2.92 L Hgb 8.4 L Hct 26.1 L MCH RDW 20.2 H Plt Count 942 H Lymph % (Auto) [place] % (Auto) [place] # Baso # Seg Neutrophils % Seg Neuts % (Manual) 97.5 H Lymphocytes % (Manual) 1.0 L Monocytes % (Manual) Seg Neutrophils # Seg Neutrophils # Man 35.3 H Lymphocytes # (Manual) 0.4 L Monocytes # (Manual) Eosinophils # (Manual) Basophils # (Manual) PT INR APTT ABG pH ABG pO2 ABG HCO3 ABG O2 Saturation ABG Base Excess ABG Hemoglobin Oxyhemoglobin Sodium Potassium Chloride Carbon Dioxide BUN Creatinine Glucose POC Glucose 146 H 131 H Lactic Acid Calcium Ionized Calcium Phosphorus Magnesium Total Bilirubin AST ALT Alkaline Phosphatase Ammonia Total Creatine Kinase CK-MB (CK-2) CK-MB (CK-2) Rel Index Total Protein Albumin Urine WBC (Auto) Vancomycin Trough Salicylates Acetaminophen Plasma/Serum Alcohol Crossmatch 12/25/19 12/25/19 12/25/19 03:47 05:30 12:23 WBC RBC Hgb Hct MCH RDW Plt Count Lymph % (Auto) [place] % (Auto) [place] # Baso # Seg Neutrophils % Seg Neuts % (Manual) Lymphocytes % (Manual) Monocytes % (Manual) Seg Neutrophils # Seg Neutrophils # Man Lymphocytes # (Manual) Monocytes # (Manual) Eosinophils # (Manual) Basophils # (Manual) PT INR APTT ABG pH ABG pO2 ABG HCO3 ABG O2 Saturation ABG Base Excess ABG Hemoglobin Oxyhemoglobin Sodium Potassium Chloride Carbon Dioxide 15 L BUN 70 H Creatinine 1.7 H Glucose 153 H POC Glucose 169 H 135 H Lactic Acid Calcium Ionized Calcium Phosphorus Magnesium Total Bilirubin AST ALT Alkaline Phosphatase Ammonia Total Creatine Kinase CK-MB (CK-2) CK-MB (CK-2) Rel Index Total Protein Albumin Urine WBC (Auto) Vancomycin Trough Salicylates Acetaminophen Plasma/Serum Alcohol Crossmatch 12/25/19 12/25/19 12/26/19 17:37 23:29 09:47 WBC 22.1 H RBC 2.83 L Hgb 7.9 L Hct 25.5 L MCH RDW 20.0 H Plt Count 894 H Lymph % (Auto) [place] % (Auto) [place] # Baso # Seg Neutrophils % Seg Neuts % (Manual) Lymphocytes % (Manual) Monocytes % (Manual) Seg Neutrophils # Seg Neutrophils # Man Lymphocytes # (Manual) Monocytes # (Manual) Eosinophils # (Manual) Basophils # (Manual) PT INR APTT ABG pH ABG pO2 ABG HCO3 ABG O2 Saturation ABG Base Excess ABG Hemoglobin Oxyhemoglobin Sodium Potassium Chloride Carbon Dioxide BUN Creatinine Glucose POC Glucose 120 H 140 H Lactic Acid Calcium Ionized Calcium Phosphorus Magnesium Total Bilirubin AST ALT Alkaline Phosphatase Ammonia Total Creatine Kinase CK-MB (CK-2) CK-MB (CK-2) Rel Index Total Protein Albumin Urine WBC (Auto) Vancomycin Trough Salicylates Acetaminophen Plasma/Serum Alcohol Crossmatch 12/26/19 12/26/19 12/26/19 09:47 11:46 17:52 WBC RBC Hgb Hct MCH RDW Plt Count Lymph % (Auto) [place] % (Auto) [place] # Baso # Seg Neutrophils % Seg Neuts % (Manual) Lymphocytes % (Manual) Monocytes % (Manual) Seg Neutrophils # Seg Neutrophils # Man Lymphocytes # (Manual) Monocytes # (Manual) Eosinophils # (Manual) Basophils # (Manual) PT INR APTT ABG pH ABG pO2 ABG HCO3 ABG O2 Saturation ABG Base Excess ABG Hemoglobin Oxyhemoglobin Sodium Potassium Chloride Carbon Dioxide 18 L BUN 65 H Creatinine 1.4 H Glucose 132 H POC Glucose 110 H 145 H Lactic Acid Calcium Ionized Calcium Phosphorus Magnesium Total Bilirubin AST ALT Alkaline Phosphatase Ammonia Total Creatine Kinase CK-MB (CK-2) CK-MB (CK-2) Rel Index Total Protein Albumin Urine WBC (Auto) Vancomycin Trough Salicylates Acetaminophen Plasma/Serum Alcohol Crossmatch 12/27/19 12/27/19 12/27/19 00:01 03:42 03:42 WBC 18.0 H RBC 2.86 L Hgb 8.0 L Hct 25.2 L MCH RDW 19.2 H Plt Count 873 H Lymph % (Auto) 8.4 L [place] % (Auto) 7.5 H [place] # 1.4 H Baso # 0.2 H Seg Neutrophils % 82.2 H Seg Neuts % (Manual) Lymphocytes % (Manual) Monocytes % (Manual) Seg Neutrophils # 14.8 H Seg Neutrophils # Man Lymphocytes # (Manual) Monocytes # (Manual) Eosinophils # (Manual) Basophils # (Manual) PT INR APTT ABG pH ABG pO2 ABG HCO3 ABG O2 Saturation ABG Base Excess ABG Hemoglobin Oxyhemoglobin Sodium Potassium Chloride Carbon Dioxide BUN 73 H Creatinine 1.4 H Glucose 119 H POC Glucose 124 H Lactic Acid Calcium Ionized Calcium Phosphorus Magnesium Total Bilirubin AST ALT Alkaline Phosphatase Ammonia Total Creatine Kinase CK-MB (CK-2) CK-MB (CK-2) Rel Index Total Protein Albumin Urine WBC (Auto) Vancomycin Trough Salicylates Acetaminophen Plasma/Serum Alcohol Crossmatch 12/27/19 12/27/19 12/27/19 05:45 11:45 17:29 WBC RBC Hgb Hct MCH RDW Plt Count Lymph % (Auto) [place] % (Auto) [place] # Baso # Seg Neutrophils % Seg Neuts % (Manual) Lymphocytes % (Manual) Monocytes % (Manual) Seg Neutrophils # Seg Neutrophils # Man Lymphocytes # (Manual) Monocytes # (Manual) Eosinophils # (Manual) Basophils # (Manual) PT INR APTT ABG pH ABG pO2 ABG HCO3 ABG O2 Saturation ABG Base Excess ABG Hemoglobin Oxyhemoglobin Sodium Potassium Chloride Carbon Dioxide BUN Creatinine Glucose POC Glucose 131 H 123 H 134 H Lactic Acid Calcium Ionized Calcium Phosphorus Magnesium Total Bilirubin AST ALT Alkaline Phosphatase Ammonia Total Creatine Kinase CK-MB (CK-2) CK-MB (CK-2) Rel Index Total Protein Albumin Urine WBC (Auto) Vancomycin Trough Salicylates Acetaminophen Plasma/Serum Alcohol Crossmatch 12/28/19 12/28/19 12/28/19 00:12 05:14 11:53 WBC RBC Hgb Hct MCH RDW Plt Count Lymph % (Auto) [place] % (Auto) [place] # Baso # Seg Neutrophils % Seg Neuts % (Manual) Lymphocytes % (Manual) Monocytes % (Manual) Seg Neutrophils # Seg Neutrophils # Man Lymphocytes # (Manual) Monocytes # (Manual) Eosinophils # (Manual) Basophils # (Manual) PT INR APTT ABG pH ABG pO2 ABG HCO3 ABG O2 Saturation ABG Base Excess ABG Hemoglobin Oxyhemoglobin Sodium Potassium Chloride Carbon Dioxide BUN Creatinine Glucose POC Glucose 138 H 130 H 146 H Lactic Acid Calcium Ionized Calcium Phosphorus Magnesium Total Bilirubin AST ALT Alkaline Phosphatase Ammonia Total Creatine Kinase CK-MB (CK-2) CK-MB (CK-2) Rel Index Total Protein Albumin Urine WBC (Auto) Vancomycin Trough Salicylates Acetaminophen Plasma/Serum Alcohol Crossmatch 12/28/19 12/29/19 12/29/19 17:39 00:01 18:11 WBC RBC Hgb Hct MCH RDW Plt Count Lymph % (Auto) [place] % (Auto) [place] # Baso # Seg Neutrophils % Seg Neuts % (Manual) Lymphocytes % (Manual) Monocytes % (Manual) Seg Neutrophils # Seg Neutrophils # Man Lymphocytes # (Manual) Monocytes # (Manual) Eosinophils # (Manual) Basophils # (Manual) PT INR APTT ABG pH ABG pO2 ABG HCO3 ABG O2 Saturation ABG Base Excess ABG Hemoglobin Oxyhemoglobin Sodium Potassium Chloride Carbon Dioxide BUN Creatinine Glucose POC Glucose 117 H 139 H 130 H Lactic Acid Calcium Ionized Calcium Phosphorus Magnesium Total Bilirubin AST ALT Alkaline Phosphatase Ammonia Total Creatine Kinase CK-MB (CK-2) CK-MB (CK-2) Rel Index Total Protein Albumin Urine WBC (Auto) Vancomycin Trough Salicylates Acetaminophen Plasma/Serum Alcohol Crossmatch 12/29/19 12/30/19 12/30/19 23:09 00:02 01:06 WBC 16.7 H RBC 2.91 L Hgb 8.2 L Hct 25.4 L MCH RDW 18.7 H Plt Count 708 H Lymph % (Auto) 9.4 L [place] % (Auto) [place] # 0.9 H Baso # Seg Neutrophils % 83.5 H Seg Neuts % (Manual) Lymphocytes % (Manual) Monocytes % (Manual) Seg Neutrophils # 14.0 H Seg Neutrophils # Man Lymphocytes # (Manual) Monocytes # (Manual) Eosinophils # (Manual) Basophils # (Manual) PT INR APTT ABG pH ABG pO2 ABG HCO3 ABG O2 Saturation ABG Base Excess ABG Hemoglobin Oxyhemoglobin Sodium Potassium Chloride Carbon Dioxide BUN Creatinine Glucose POC Glucose 120 H 114 H Lactic Acid Calcium Ionized Calcium Phosphorus Magnesium Total Bilirubin AST ALT Alkaline Phosphatase Ammonia Total Creatine Kinase CK-MB (CK-2) CK-MB (CK-2) Rel Index Total Protein Albumin Urine WBC (Auto) Vancomycin Trough Salicylates Acetaminophen Plasma/Serum Alcohol Crossmatch 12/30/19 12/30/19 12/30/19 01:06 04:23 05:18 WBC RBC Hgb Hct MCH RDW Plt Count Lymph % (Auto) [place] % (Auto) [place] # Baso # Seg Neutrophils % Seg Neuts % (Manual) Lymphocytes % (Manual) Monocytes % (Manual) Seg Neutrophils # Seg Neutrophils # Man Lymphocytes # (Manual) Monocytes # (Manual) Eosinophils # (Manual) Basophils # (Manual) PT INR APTT ABG pH ABG pO2 ABG HCO3 ABG O2 Saturation ABG Base Excess ABG Hemoglobin 8.3 L Oxyhemoglobin Sodium Potassium Chloride Carbon Dioxide BUN 70 H Creatinine Glucose 122 H POC Glucose 130 H Lactic Acid Calcium Ionized Calcium Phosphorus Magnesium Total Bilirubin AST ALT Alkaline Phosphatase Ammonia Total Creatine Kinase CK-MB (CK-2) CK-MB (CK-2) Rel Index Total Protein Albumin Urine WBC (Auto) Vancomycin Trough Salicylates Acetaminophen Plasma/Serum Alcohol Crossmatch 12/30/19 12/30/19 12/30/19 05:40 12:17 17:43 WBC RBC Hgb Hct MCH RDW Plt Count Lymph % (Auto) [place] % (Auto) [place] # Baso # Seg Neutrophils % Seg Neuts % (Manual) Lymphocytes % (Manual) Monocytes % (Manual) Seg Neutrophils # Seg Neutrophils # Man Lymphocytes # (Manual) Monocytes # (Manual) Eosinophils # (Manual) Basophils # (Manual) PT INR APTT ABG pH ABG pO2 ABG HCO3 ABG O2 Saturation ABG Base Excess ABG Hemoglobin Oxyhemoglobin Sodium Potassium Chloride Carbon Dioxide BUN Creatinine Glucose POC Glucose 135 H 132 H 118 H Lactic Acid Calcium Ionized Calcium Phosphorus Magnesium Total Bilirubin AST ALT Alkaline Phosphatase Ammonia Total Creatine Kinase CK-MB (CK-2) CK-MB (CK-2) Rel Index Total Protein Albumin Urine WBC (Auto) Vancomycin Trough Salicylates Acetaminophen Plasma/Serum Alcohol Crossmatch 12/30/19 12/31/19 12/31/19 23:29 05:19 17:50 WBC RBC Hgb Hct MCH RDW Plt Count Lymph % (Auto) [place] % (Auto) [place] # Baso # Seg Neutrophils % Seg Neuts % (Manual) Lymphocytes % (Manual) Monocytes % (Manual) Seg Neutrophils # Seg Neutrophils # Man Lymphocytes # (Manual) Monocytes # (Manual) Eosinophils # (Manual) Basophils # (Manual) PT INR APTT ABG pH ABG pO2 ABG HCO3 ABG O2 Saturation ABG Base Excess ABG Hemoglobin Oxyhemoglobin Sodium Potassium Chloride Carbon Dioxide BUN Creatinine Glucose POC Glucose 114 H 109 H 116 H Lactic Acid Calcium Ionized Calcium Phosphorus Magnesium Total Bilirubin AST ALT Alkaline Phosphatase Ammonia Total Creatine Kinase CK-MB (CK-2) CK-MB (CK-2) Rel Index Total Protein Albumin Urine WBC (Auto) Vancomycin Trough Salicylates Acetaminophen Plasma/Serum Alcohol Crossmatch 01/01/20 01/01/20 01/01/20 00:10 05:19 12:02 WBC RBC Hgb Hct MCH RDW Plt Count Lymph % (Auto) [place] % (Auto) [place] # Baso # Seg Neutrophils % Seg Neuts % (Manual) Lymphocytes % (Manual) Monocytes % (Manual) Seg Neutrophils # Seg Neutrophils # Man Lymphocytes # (Manual) Monocytes # (Manual) Eosinophils # (Manual) Basophils # (Manual) PT INR APTT ABG pH ABG pO2 ABG HCO3 ABG O2 Saturation ABG Base Excess ABG Hemoglobin Oxyhemoglobin Sodium Potassium Chloride Carbon Dioxide BUN Creatinine Glucose POC Glucose 131 H 122 H 136 H Lactic Acid Calcium Ionized Calcium Phosphorus Magnesium Total Bilirubin AST ALT Alkaline Phosphatase Ammonia Total Creatine Kinase CK-MB (CK-2) CK-MB (CK-2) Rel Index Total Protein Albumin Urine WBC (Auto) Vancomycin Trough Salicylates Acetaminophen Plasma/Serum Alcohol Crossmatch 01/02/20 01/02/20 01/02/20 00:24 05:36 11:41 WBC RBC Hgb Hct MCH RDW Plt Count Lymph % (Auto) [place] % (Auto) [place] # Baso # Seg Neutrophils % Seg Neuts % (Manual) Lymphocytes % (Manual) Monocytes % (Manual) Seg Neutrophils # Seg Neutrophils # Man Lymphocytes # (Manual) Monocytes # (Manual) Eosinophils # (Manual) Basophils # (Manual) PT INR APTT ABG pH ABG pO2 ABG HCO3 ABG O2 Saturation ABG Base Excess ABG Hemoglobin Oxyhemoglobin Sodium Potassium Chloride Carbon Dioxide BUN Creatinine Glucose POC Glucose 119 H 109 H 125 H Lactic Acid Calcium Ionized Calcium Phosphorus Magnesium Total Bilirubin AST ALT Alkaline Phosphatase Ammonia Total Creatine Kinase CK-MB (CK-2) CK-MB (CK-2) Rel Index Total Protein Albumin Urine WBC (Auto) Vancomycin Trough Salicylates Acetaminophen Plasma/Serum Alcohol Crossmatch 01/02/20 01/03/20 01/03/20 17:49 05:29 12:13 WBC RBC Hgb Hct MCH RDW Plt Count Lymph % (Auto) [place] % (Auto) [place] # Baso # Seg Neutrophils % Seg Neuts % (Manual) Lymphocytes % (Manual) Monocytes % (Manual) Seg Neutrophils # Seg Neutrophils # Man Lymphocytes # (Manual) Monocytes # (Manual) Eosinophils # (Manual) Basophils # (Manual) PT INR APTT ABG pH ABG pO2 ABG HCO3 ABG O2 Saturation ABG Base Excess ABG Hemoglobin Oxyhemoglobin Sodium Potassium Chloride Carbon Dioxide BUN Creatinine Glucose POC Glucose 130 H 132 H 113 H Lactic Acid Calcium Ionized Calcium Phosphorus Magnesium Total Bilirubin AST ALT Alkaline Phosphatase Ammonia Total Creatine Kinase CK-MB (CK-2) CK-MB (CK-2) Rel Index Total Protein Albumin Urine WBC (Auto) Vancomycin Trough Salicylates Acetaminophen Plasma/Serum Alcohol Crossmatch 01/03/20 01/04/20 01/04/20 17:32 00:19 05:26 WBC RBC Hgb Hct MCH RDW Plt Count Lymph % (Auto) [place] % (Auto) [place] # Baso # Seg Neutrophils % Seg Neuts % (Manual) Lymphocytes % (Manual) Monocytes % (Manual) Seg Neutrophils # Seg Neutrophils # Man Lymphocytes # (Manual) Monocytes # (Manual) Eosinophils # (Manual) Basophils # (Manual) PT INR APTT ABG pH ABG pO2 ABG HCO3 ABG O2 Saturation ABG Base Excess ABG Hemoglobin Oxyhemoglobin Sodium Potassium Chloride Carbon Dioxide BUN Creatinine Glucose POC Glucose 127 H 141 H 129 H Lactic Acid Calcium Ionized Calcium Phosphorus Magnesium Total Bilirubin AST ALT Alkaline Phosphatase Ammonia Total Creatine Kinase CK-MB (CK-2) CK-MB (CK-2) Rel Index Total Protein Albumin Urine WBC (Auto) Vancomycin Trough Salicylates Acetaminophen Plasma/Serum Alcohol Crossmatch 01/04/20 01/04/20 01/05/20 11:39 17:29 05:22 WBC RBC Hgb Hct MCH RDW Plt Count Lymph % (Auto) [place] % (Auto) [place] # Baso # Seg Neutrophils % Seg Neuts % (Manual) Lymphocytes % (Manual) Monocytes % (Manual) Seg Neutrophils # Seg Neutrophils # Man Lymphocytes # (Manual) Monocytes # (Manual) Eosinophils # (Manual) Basophils # (Manual) PT INR APTT ABG pH ABG pO2 ABG HCO3 ABG O2 Saturation ABG Base Excess ABG Hemoglobin Oxyhemoglobin Sodium Potassium Chloride Carbon Dioxide BUN Creatinine Glucose POC Glucose 167 H 132 H 121 H Lactic Acid Calcium Ionized Calcium Phosphorus Magnesium Total Bilirubin AST ALT Alkaline Phosphatase Ammonia Total Creatine Kinase CK-MB (CK-2) CK-MB (CK-2) Rel Index Total Protein Albumin Urine WBC (Auto) Vancomycin Trough Salicylates Acetaminophen Plasma/Serum Alcohol Crossmatch 01/05/20 01/05/20 01/05/20 12:25 17:40 18:06 WBC RBC Hgb Hct MCH RDW Plt Count Lymph % (Auto) [place] % (Auto) [place] # Baso # Seg Neutrophils % Seg Neuts % (Manual) Lymphocytes % (Manual) Monocytes % (Manual) Seg Neutrophils # Seg Neutrophils # Man Lymphocytes # (Manual) Monocytes # (Manual) Eosinophils # (Manual) Basophils # (Manual) PT INR APTT ABG pH 7.472 H ABG pO2 99.2 H ABG HCO3 ABG O2 Saturation ABG Base Excess ABG Hemoglobin 7.8 L Oxyhemoglobin Sodium Potassium Chloride Carbon Dioxide BUN Creatinine Glucose POC Glucose 106 H 110 H Lactic Acid Calcium Ionized Calcium Phosphorus Magnesium Total Bilirubin AST ALT Alkaline Phosphatase Ammonia Total Creatine Kinase CK-MB (CK-2) CK-MB (CK-2) Rel Index Total Protein Albumin Urine WBC (Auto) Vancomycin Trough Salicylates Acetaminophen Plasma/Serum Alcohol Crossmatch 01/06/20 01/06/20 01/06/20 00:11 05:16 11:30 WBC RBC Hgb Hct MCH RDW Plt Count Lymph % (Auto) [place] % (Auto) [place] # Baso # Seg Neutrophils % Seg Neuts % (Manual) Lymphocytes % (Manual) Monocytes % (Manual) Seg Neutrophils # Seg Neutrophils # Man Lymphocytes # (Manual) Monocytes # (Manual) Eosinophils # (Manual) Basophils # (Manual) PT INR APTT ABG pH ABG pO2 ABG HCO3 ABG O2 Saturation ABG Base Excess ABG Hemoglobin Oxyhemoglobin Sodium Potassium Chloride Carbon Dioxide BUN Creatinine Glucose POC Glucose 108 H 124 H 125 H Lactic Acid Calcium Ionized Calcium Phosphorus Magnesium Total Bilirubin AST ALT Alkaline Phosphatase Ammonia Total Creatine Kinase CK-MB (CK-2) CK-MB (CK-2) Rel Index Total Protein Albumin Urine WBC (Auto) Vancomycin Trough Salicylates Acetaminophen Plasma/Serum Alcohol Crossmatch 01/06/20 01/06/20 01/07/20 17:53 23:51 04:12 WBC 16.5 H RBC 3.29 L Hgb 9.3 L Hct 28.1 L MCH RDW 18.2 H Plt Count 526 H Lymph % (Auto) 8.4 L [place] % (Auto) [place] # 1.0 H Baso # Seg Neutrophils % 84.4 H Seg Neuts % (Manual) Lymphocytes % (Manual) Monocytes % (Manual) Seg Neutrophils # 13.9 H Seg Neutrophils # Man Lymphocytes # (Manual) Monocytes # (Manual) Eosinophils # (Manual) Basophils # (Manual) PT INR APTT ABG pH ABG pO2 ABG HCO3 ABG O2 Saturation ABG Base Excess ABG Hemoglobin Oxyhemoglobin Sodium Potassium Chloride Carbon Dioxide BUN Creatinine Glucose POC Glucose 166 H 128 H Lactic Acid Calcium Ionized Calcium Phosphorus Magnesium Total Bilirubin AST ALT Alkaline Phosphatase Ammonia Total Creatine Kinase CK-MB (CK-2) CK-MB (CK-2) Rel Index Total Protein Albumin Urine WBC (Auto) Vancomycin Trough Salicylates Acetaminophen Plasma/Serum Alcohol Crossmatch 01/07/20 01/07/20 01/07/20 04:12 04:45 11:51 WBC RBC Hgb Hct MCH RDW Plt Count Lymph % (Auto) [place] % (Auto) [place] # Baso # Seg Neutrophils % Seg Neuts % (Manual) Lymphocytes % (Manual) Monocytes % (Manual) Seg Neutrophils # Seg Neutrophils # Man Lymphocytes # (Manual) Monocytes # (Manual) Eosinophils # (Manual) Basophils # (Manual) PT INR APTT ABG pH ABG pO2 ABG HCO3 ABG O2 Saturation ABG Base Excess ABG Hemoglobin Oxyhemoglobin Sodium 136 L Potassium Chloride Carbon Dioxide 21 L BUN 44 H Creatinine 0.6 L Glucose 124 H POC Glucose 134 H 138 H Lactic Acid Calcium Ionized Calcium Phosphorus Magnesium Total Bilirubin AST ALT Alkaline Phosphatase Ammonia Total Creatine Kinase CK-MB (CK-2) CK-MB (CK-2) Rel Index Total Protein Albumin Urine WBC (Auto) Vancomycin Trough Salicylates Acetaminophen Plasma/Serum Alcohol Crossmatch 01/07/20 01/08/20 01/08/20 17:36 00:33 05:29 WBC RBC Hgb Hct MCH RDW Plt Count Lymph % (Auto) [place] % (Auto) [place] # Baso # Seg Neutrophils % Seg Neuts % (Manual) Lymphocytes % (Manual) Monocytes % (Manual) Seg Neutrophils # Seg Neutrophils # Man Lymphocytes # (Manual) Monocytes # (Manual) Eosinophils # (Manual) Basophils # (Manual) PT INR APTT ABG pH ABG pO2 ABG HCO3 ABG O2 Saturation ABG Base Excess ABG Hemoglobin Oxyhemoglobin Sodium Potassium Chloride Carbon Dioxide BUN Creatinine Glucose POC Glucose 128 H 119 H 124 H Lactic Acid Calcium Ionized Calcium Phosphorus Magnesium Total Bilirubin AST ALT Alkaline Phosphatase Ammonia Total Creatine Kinase CK-MB (CK-2) CK-MB (CK-2) Rel Index Total Protein Albumin Urine WBC (Auto) Vancomycin Trough Salicylates Acetaminophen Plasma/Serum Alcohol Crossmatch 01/08/20 01/08/20 01/08/20 12:51 20:25 23:22 WBC RBC Hgb Hct MCH RDW Plt Count Lymph % (Auto) [place] % (Auto) [place] # Baso # Seg Neutrophils % Seg Neuts % (Manual) Lymphocytes % (Manual) Monocytes % (Manual) Seg Neutrophils # Seg Neutrophils # Man Lymphocytes # (Manual) Monocytes # (Manual) Eosinophils # (Manual) Basophils # (Manual) PT INR APTT ABG pH ABG pO2 132.2 H ABG HCO3 ABG O2 Saturation ABG Base Excess ABG Hemoglobin Oxyhemoglobin Sodium Potassium Chloride Carbon Dioxide BUN Creatinine Glucose POC Glucose 128 H 127 H Lactic Acid Calcium Ionized Calcium Phosphorus Magnesium Total Bilirubin AST ALT Alkaline Phosphatase Ammonia Total Creatine Kinase CK-MB (CK-2) CK-MB (CK-2) Rel Index Total Protein Albumin Urine WBC (Auto) Vancomycin Trough Salicylates Acetaminophen Plasma/Serum Alcohol Crossmatch 01/09/20 01/09/20 01/09/20 05:48 08:51 11:29 WBC RBC Hgb Hct MCH RDW Plt Count Lymph % (Auto) [place] % (Auto) [place] # Baso # Seg Neutrophils % Seg Neuts % (Manual) Lymphocytes % (Manual) Monocytes % (Manual) Seg Neutrophils # Seg Neutrophils # Man Lymphocytes # (Manual) Monocytes # (Manual) Eosinophils # (Manual) Basophils # (Manual) PT INR APTT ABG pH ABG pO2 94.3 H ABG HCO3 ABG O2 Saturation ABG Base Excess ABG Hemoglobin 9.5 L Oxyhemoglobin Sodium Potassium Chloride Carbon Dioxide BUN Creatinine Glucose POC Glucose 120 H 112 H Lactic Acid Calcium Ionized Calcium Phosphorus Magnesium Total Bilirubin AST ALT Alkaline Phosphatase Ammonia Total Creatine Kinase CK-MB (CK-2) CK-MB (CK-2) Rel Index Total Protein Albumin Urine WBC (Auto) Vancomycin Trough Salicylates Acetaminophen Plasma/Serum Alcohol Crossmatch 01/09/20 01/10/20 01/10/20 17:57 05:17 12:28 WBC RBC Hgb Hct MCH RDW Plt Count Lymph % (Auto) [place] % (Auto) [place] # Baso # Seg Neutrophils % Seg Neuts % (Manual) Lymphocytes % (Manual) Monocytes % (Manual) Seg Neutrophils # Seg Neutrophils # Man Lymphocytes # (Manual) Monocytes # (Manual) Eosinophils # (Manual) Basophils # (Manual) PT INR APTT ABG pH ABG pO2 ABG HCO3 ABG O2 Saturation ABG Base Excess ABG Hemoglobin Oxyhemoglobin Sodium Potassium Chloride Carbon Dioxide BUN Creatinine Glucose POC Glucose 122 H 115 H 116 H Lactic Acid Calcium Ionized Calcium Phosphorus Magnesium Total Bilirubin AST ALT Alkaline Phosphatase Ammonia Total Creatine Kinase CK-MB (CK-2) CK-MB (CK-2) Rel Index Total Protein Albumin Urine WBC (Auto) Vancomycin Trough Salicylates Acetaminophen Plasma/Serum Alcohol Crossmatch 01/10/20 01/10/20 01/11/20 18:25 23:47 06:05 WBC RBC Hgb Hct MCH RDW Plt Count Lymph % (Auto) [place] % (Auto) [place] # Baso # Seg Neutrophils % Seg Neuts % (Manual) Lymphocytes % (Manual) Monocytes % (Manual) Seg Neutrophils # Seg Neutrophils # Man Lymphocytes # (Manual) Monocytes # (Manual) Eosinophils # (Manual) Basophils # (Manual) PT INR APTT ABG pH ABG pO2 ABG HCO3 ABG O2 Saturation ABG Base Excess ABG Hemoglobin Oxyhemoglobin Sodium Potassium Chloride Carbon Dioxide BUN Creatinine Glucose POC Glucose 123 H 115 H 151 H Lactic Acid Calcium Ionized Calcium Phosphorus Magnesium Total Bilirubin AST ALT Alkaline Phosphatase Ammonia Total Creatine Kinase CK-MB (CK-2) CK-MB (CK-2) Rel Index Total Protein Albumin Urine WBC (Auto) Vancomycin Trough Salicylates Acetaminophen Plasma/Serum Alcohol Crossmatch 01/11/20 01/11/20 01/11/20 07:00 07:00 12:27 WBC 11.8 H RBC 3.40 L Hgb 9.4 L Hct 29.3 L MCH RDW 18.1 H Plt Count 549 H Lymph % (Auto) [place] % (Auto) 9.1 H [place] # 1.1 H Baso # Seg Neutrophils % 73.3 H Seg Neuts % (Manual) Lymphocytes % (Manual) Monocytes % (Manual) Seg Neutrophils # 8.7 H Seg Neutrophils # Man Lymphocytes # (Manual) Monocytes # (Manual) Eosinophils # (Manual) Basophils # (Manual) PT INR APTT ABG pH ABG pO2 ABG HCO3 ABG O2 Saturation ABG Base Excess ABG Hemoglobin Oxyhemoglobin Sodium 134 L Potassium Chloride 97.7 L Carbon Dioxide 21 L BUN 38 H Creatinine 0.5 L Glucose 168 H POC Glucose 117 H Lactic Acid Calcium 10.5 H Ionized Calcium Phosphorus Magnesium Total Bilirubin AST ALT Alkaline Phosphatase Ammonia Total Creatine Kinase CK-MB (CK-2) CK-MB (CK-2) Rel Index Total Protein Albumin Urine WBC (Auto) Vancomycin Trough Salicylates Acetaminophen Plasma/Serum Alcohol Crossmatch 01/11/20 01/12/20 01/12/20 18:19 00:53 05:24 WBC RBC Hgb Hct MCH RDW Plt Count Lymph % (Auto) [place] % (Auto) [place] # Baso # Seg Neutrophils % Seg Neuts % (Manual) Lymphocytes % (Manual) Monocytes % (Manual) Seg Neutrophils # Seg Neutrophils # Man Lymphocytes # (Manual) Monocytes # (Manual) Eosinophils # (Manual) Basophils # (Manual) PT INR APTT ABG pH ABG pO2 ABG HCO3 ABG O2 Saturation ABG Base Excess ABG Hemoglobin Oxyhemoglobin Sodium Potassium Chloride Carbon Dioxide BUN Creatinine Glucose POC Glucose 126 H 126 H 128 H Lactic Acid Calcium Ionized Calcium Phosphorus Magnesium Total Bilirubin AST ALT Alkaline Phosphatase Ammonia Total Creatine Kinase CK-MB (CK-2) CK-MB (CK-2) Rel Index Total Protein Albumin Urine WBC (Auto) Vancomycin Trough Salicylates Acetaminophen Plasma/Serum Alcohol Crossmatch 01/12/20 01/12/20 01/13/20 13:39 18:02 00:27 WBC RBC Hgb Hct MCH RDW Plt Count Lymph % (Auto) [place] % (Auto) [place] # Baso # Seg Neutrophils % Seg Neuts % (Manual) Lymphocytes % (Manual) Monocytes % (Manual) Seg Neutrophils # Seg Neutrophils # Man Lymphocytes # (Manual) Monocytes # (Manual) Eosinophils # (Manual) Basophils # (Manual) PT INR APTT ABG pH ABG pO2 ABG HCO3 ABG O2 Saturation ABG Base Excess ABG Hemoglobin Oxyhemoglobin Sodium Potassium Chloride Carbon Dioxide BUN Creatinine Glucose POC Glucose 146 H 125 H 131 H Lactic Acid Calcium Ionized Calcium Phosphorus Magnesium Total Bilirubin AST ALT Alkaline Phosphatase Ammonia Total Creatine Kinase CK-MB (CK-2) CK-MB (CK-2) Rel Index Total Protein Albumin Urine WBC (Auto) Vancomycin Trough Salicylates Acetaminophen Plasma/Serum Alcohol Crossmatch 01/13/20 01/13/20 05:44 11:54 WBC RBC Hgb Hct MCH RDW Plt Count Lymph % (Auto) [place] % (Auto) [place] # Baso # Seg Neutrophils % Seg Neuts % (Manual) Lymphocytes % (Manual) Monocytes % (Manual) Seg Neutrophils # Seg Neutrophils # Man Lymphocytes # (Manual) Monocytes # (Manual) Eosinophils # (Manual) Basophils # (Manual) PT INR APTT ABG pH ABG pO2 ABG HCO3 ABG O2 Saturation ABG Base Excess ABG Hemoglobin Oxyhemoglobin Sodium Potassium Chloride Carbon Dioxide BUN Creatinine Glucose POC Glucose 148 H 140 H Lactic Acid Calcium Ionized Calcium Phosphorus Magnesium Total Bilirubin AST ALT Alkaline Phosphatase Ammonia Total Creatine Kinase CK-MB (CK-2) CK-MB (CK-2) Rel Index Total Protein Albumin Urine WBC (Auto) Vancomycin Trough Salicylates Acetaminophen Plasma/Serum Alcohol Crossmatch Allied health notes reviewed: RT
[2020-01-13] MEDS: QUEtiapine 100 MG TAB FEEDTUBE SCH (20:59)
[2020-01-14] MEDS: GLYCOPYRROLATE 1 MG TAB PO SCH ×3 (09:48→21:11)
[2020-01-14] MEDS: LANSOPRAZOLE 30 MG SOLUTAB FEEDTUBE SCH (09:49)
[2020-01-14] MEDS: SERTRALINE 50 MG TAB PO SCH (09:49)
[2020-01-14] MEDS: hydrOXYzine PAMOATE 25 MG CAP PO SCH ×2 (09:49→21:12)
[2020-01-14] MEDS: MIRTAZAPINE 30 MG TAB PO SCH (09:49)
[2020-01-14] MEDS: TAMSULOSIN 0.4 MG CAP PO SCH (09:49)
[2020-01-14] MEDS: levETIRAcetam 500 MG/5 ML ORAL LIQD PO SCH ×2 (09:49→21:11)
--- NOTE | 2020-01-14 14:36 | Progress Note ---
Assessment and Plan Acute cardiopulmonary arrest with ROSC Acute hypoxemic respiratory failure on MVS Acute metabolic-toxic encephalopathy Metabolic acidosis/alcoholic acidosis/Lactic acidosis Ischemic hepatitis Leucocytosis with lactic acidosis Tobacco use disorder ALcohol use Disorder Hypokalemia High grade fevers - downsize trach to a # 6 cuffed [place] - improve skin care re: scaling skin of hands (RN notified) - continue RTC T-piece trials as tolerated - no new issues; continue care as below otherwise - repeat CXR prn at this point - Continue to wean supplemental oxygen for target O2 sat's > 90% - continue bronchodilators with routine trach care and pulmonary hygiene per RT - Slow Seroquel taper - consider Provigil - s/p Antibiotics per ID recommendations - continue Reglan for G.I. motility - Continue VTE and Stress ulcer prophylaxis - Continue enteric nutritional support - Monitor glycemic control, with target blood glucose 140-180 mg/dL while critically ill (Avoid hypoglycemia) - ABG and CXR prn - Continue to avoid nephrotoxins, adjust all medications fro GFR and CrCL - Continue to avoid benzodiazepines , as much as possible, to reduce the possibility of delirium - Continue prn analgesia per CPOT score - Continue to maintain of sleep-wake cycle, avoid delirium - PT/OT/ROM exercises- awaiting PT/OT evaluation - Continue mobility protocol and skin assessment per protocol for pressure ulcer prevention - Continue to monitor for clinical seizures - Continue Nicotine withdrawal precautions, alcohol withdrawal precautions - continue other care per attending / other consultants ..... re-evaluate in am & prn CONDITION: FAIR PROGNOSIS: IMPROVED CODE STATUS: FULL CODE Subjective Date of service: 01/14/20 Principal diagnosis: Ac cardiopulmonary arrest; Ac hypoxemic resp failure; Acute encephalopathy Interval history: Patient is seen today for: Acute cardiopulmonary arrest with ROSC; Acute hypoxemic respiratory failure; Acute metabolic-toxic encephalopathy; Ischemic hepatitis; Leucocytosis with lactic acidosis; Tobacco use disorder; Alcohol use Disorder; Hypokalemia; High grade fevers Seen and examined at bedside; 24hour events reviewed; nursing and respiratory care staff consulted; no adverse overnight events reported to me; resting peacefully in bed; still with AMS and lethargy but overall improved; remains on T-piece Objective Vital Signs - 12hr 01/14/20 01/14/20 01/14/20 03:01 03:47 04:00 Temperature 97.2 F L Pulse Rate 116 H 116 H Pulse Rate [ 116 H From Monitor] Respiratory 28 H 14 Rate Blood Pressure 116/89 123/93 O2 Sat by Pulse 97 99 Oximetry O2 Sat by Pulse Oximetry [ Assessment] 01/14/20 01/14/20 01/14/20 04:06 04:24 05:01 Temperature Pulse Rate 116 H 112 H Pulse Rate [ From Monitor] Respiratory 25 H Rate Blood Pressure 123/93 O2 Sat by Pulse 99 Oximetry O2 Sat by Pulse 99 Oximetry [ Assessment] 01/14/20 01/14/20 01/14/20 06:01 07:01 07:36 Temperature Pulse Rate 105 H 110 H Pulse Rate [ 120 H From Monitor] Respiratory 23 24 24 Rate Blood Pressure 123/93 123/93 O2 Sat by Pulse 100 100 100 Oximetry O2 Sat by Pulse Oximetry [ Assessment] 01/14/20 01/14/20 01/14/20 08:00 08:45 08:54 Temperature 98.3 F Pulse Rate 113 H 115 H Pulse Rate [ From Monitor] Respiratory 21 Rate Blood Pressure 124/91 O2 Sat by Pulse 100 100 Oximetry O2 Sat by Pulse Oximetry [ Assessment] 01/14/20 01/14/20 01/14/20 09:01 10:01 11:00 Temperature Pulse Rate 114 H 114 H 122 H Pulse Rate [ From Monitor] Respiratory 19 23 29 H Rate Blood Pressure 124/91 124/91 124/91 O2 Sat by Pulse 99 100 100 Oximetry O2 Sat by Pulse Oximetry [ Assessment] 01/14/20 01/14/20 01/14/20 12:00 13:00 14:00 Temperature 99.2 F Pulse Rate 118 H 115 H 120 H Pulse Rate [ 120 H From Monitor] Respiratory 25 H 25 H 25 H Rate Blood Pressure 120/83 120/83 120/83 O2 Sat by Pulse 100 100 99 Oximetry O2 Sat by Pulse Oximetry [ Assessment] Constitutional: no acute distress, other (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, with midline tracheostomy and mild dys-synchrony) Eyes: non-icteric ENT: oropharynx moist, other (s/p trach) Neck: supple, no lymphadenopathy, no JVD Effort: mildly labored Ascultation: Bilateral: diminished breath sounds, rhonchi Percussion: Bilateral: not dull Cardiovascular: regular rate and rhythm (tachycardia), other (S1,S2) Gastrointestinal: normoactive bowel sounds, soft, non-tender, non-distended Integumentary: normal Extremities: no cyanosis, no edema, pulses normal, no ischemia or petechiae Neurologic: other (awake; folowing simple commands) Psychiatric: other (Psychiatric: Unable to assess re: AMS) CBC and BMP: 01/11/20 07:00 01/11/20 07:00 ABG, PT/INR, D-dimer: ABG ABG pH 7.429 pH Units (7.350-7.450) 01/09/20 08:51 ABG pCO2 39.1 mm Hg 01/09/20 08:51 ABG pO2 94.3 mm Hg (80.0-90.0) H 01/09/20 08:51 ABG O2 Saturation 97.4 % (95.0-99.0) 01/09/20 08:51 PT/INR, D-dimer PT 17.0 Sec. (12.2-14.9) H 11/23/19 03:47 INR 1.36 (0.87-1.13) H 11/23/19 03:47 Abnormal lab findings: Abnormal Labs 11/22/19 11/22/19 11/22/19 23:17 23:18 23:27 WBC 21.2 H RBC 3.59 L Hgb 9.8 L Hct MCH 27 L RDW 18.6 H Plt Count 454 H Lymph % (Auto) [place] % (Auto) [place] # Baso # Seg Neutrophils % Seg Neuts % (Manual) 86.0 H Lymphocytes % (Manual) 9.0 L Monocytes % (Manual) Seg Neutrophils # Seg Neutrophils # Man 18.2 H Lymphocytes # (Manual) Monocytes # (Manual) 1.1 H Eosinophils # (Manual) Basophils # (Manual) PT INR APTT ABG pH ABG pO2 ABG HCO3 ABG O2 Saturation ABG Base Excess ABG Hemoglobin Oxyhemoglobin Sodium Potassium Chloride Carbon Dioxide BUN Creatinine Glucose POC Glucose 53 L Lactic Acid Calcium Ionized Calcium Phosphorus Magnesium Total Bilirubin AST ALT Alkaline Phosphatase Ammonia Total Creatine Kinase CK-MB (CK-2) CK-MB (CK-2) Rel Index Total Protein Albumin Urine WBC (Auto) 40.0 H Vancomycin Trough Salicylates Acetaminophen Plasma/Serum Alcohol Crossmatch 11/22/19 11/22/19 11/22/19 23:27 23:27 23:27 WBC RBC Hgb Hct MCH RDW Plt Count Lymph % (Auto) [place] % (Auto) [place] # Baso # Seg Neutrophils % Seg Neuts % (Manual) Lymphocytes % (Manual) Monocytes % (Manual) Seg Neutrophils # Seg Neutrophils # Man Lymphocytes # (Manual) Monocytes # (Manual) Eosinophils # (Manual) Basophils # (Manual) PT INR APTT ABG pH ABG pO2 ABG HCO3 ABG O2 Saturation ABG Base Excess ABG Hemoglobin Oxyhemoglobin Sodium Potassium 2.4 L* Chloride 85.1 L Carbon Dioxide 19 L BUN Creatinine 0.5 L Glucose 261 H POC Glucose Lactic Acid Calcium Ionized Calcium Phosphorus Magnesium Total Bilirubin AST 609 H ALT 152 H Alkaline Phosphatase 160 H Ammonia 117.0 H Total Creatine Kinase 139 H CK-MB (CK-2) 8.3 H CK-MB (CK-2) Rel Index 5.9 H Total Protein Albumin 3.6 L Urine WBC (Auto) Vancomycin Trough Salicylates < 0.3 L Acetaminophen Plasma/Serum Alcohol Crossmatch 11/22/19 11/22/19 11/23/19 23:27 23:27 01:10 WBC RBC Hgb Hct MCH RDW Plt Count Lymph % (Auto) [place] % (Auto) [place] # Baso # Seg Neutrophils % Seg Neuts % (Manual) Lymphocytes % (Manual) Monocytes % (Manual) Seg Neutrophils # Seg Neutrophils # Man Lymphocytes # (Manual) Monocytes # (Manual) Eosinophils # (Manual) Basophils # (Manual) PT INR APTT ABG pH 7.273 L ABG pO2 209.7 H ABG HCO3 ABG O2 Saturation 99.2 H ABG Base Excess -3.9 L ABG Hemoglobin 10.6 L Oxyhemoglobin 93.9 L Sodium Potassium Chloride Carbon Dioxide BUN Creatinine Glucose POC Glucose Lactic Acid Calcium Ionized Calcium Phosphorus Magnesium Total Bilirubin AST ALT Alkaline Phosphatase Ammonia Total Creatine Kinase CK-MB (CK-2) CK-MB (CK-2) Rel Index Total Protein Albumin Urine WBC (Auto) Vancomycin Trough Salicylates Acetaminophen < 5.0 L Plasma/Serum Alcohol 0.08 H Crossmatch 11/23/19 11/23/19 11/23/19 01:19 01:19 03:47 WBC RBC Hgb Hct MCH RDW Plt Count Lymph % (Auto) [place] % (Auto) [place] # Baso # Seg Neutrophils % Seg Neuts % (Manual) Lymphocytes % (Manual) Monocytes % (Manual) Seg Neutrophils # Seg Neutrophils # Man Lymphocytes # (Manual) Monocytes # (Manual) Eosinophils # (Manual) Basophils # (Manual) PT 16.3 H INR 1.29 H APTT ABG pH ABG pO2 ABG HCO3 ABG O2 Saturation ABG Base Excess ABG Hemoglobin Oxyhemoglobin Sodium Potassium Chloride Carbon Dioxide BUN Creatinine Glucose POC Glucose Lactic Acid 2.10 H* 5.00 H* Calcium Ionized Calcium Phosphorus Magnesium Total Bilirubin AST ALT Alkaline Phosphatase Ammonia Total Creatine Kinase CK-MB (CK-2) CK-MB (CK-2) Rel Index Total Protein Albumin Urine WBC (Auto) Vancomycin Trough Salicylates Acetaminophen Plasma/Serum Alcohol Crossmatch 11/23/19 11/23/19 11/23/19 03:47 03:47 04:53 WBC RBC Hgb 9.4 L Hct MCH RDW Plt Count Lymph % (Auto) [place] % (Auto) [place] # Baso # Seg Neutrophils % Seg Neuts % (Manual) Lymphocytes % (Manual) Monocytes % (Manual) Seg Neutrophils # Seg Neutrophils # Man Lymphocytes # (Manual) Monocytes # (Manual) Eosinophils # (Manual) Basophils # (Manual) PT 17.0 H INR 1.36 H APTT 128.2 H* ABG pH ABG pO2 ABG HCO3 ABG O2 Saturation ABG Base Excess ABG Hemoglobin Oxyhemoglobin Sodium Potassium Chloride Carbon Dioxide 18 L BUN Creatinine 0.5 L Glucose 105 H POC Glucose Lactic Acid Calcium 8.3 L Ionized Calcium Phosphorus 2.40 L Magnesium Total Bilirubin 1.30 H AST 761 H ALT 158 H Alkaline Phosphatase 143 H Ammonia Total Creatine Kinase CK-MB (CK-2) CK-MB (CK-2) Rel Index Total Protein Albumin 2.8 L Urine WBC (Auto) Vancomycin Trough Salicylates Acetaminophen Plasma/Serum Alcohol Crossmatch 11/23/19 11/23/19 11/23/19 05:12 06:32 06:32 WBC 16.8 H RBC 3.31 L Hgb 8.9 L Hct 28.7 L MCH 27 L RDW 18.6 H Plt Count Lymph % (Auto) [place] % (Auto) [place] # Baso # Seg Neutrophils % Seg Neuts % (Manual) 94.0 H Lymphocytes % (Manual) 1.0 L Monocytes % (Manual) Seg Neutrophils # Seg Neutrophils # Man 15.8 H Lymphocytes # (Manual) 0.2 L Monocytes # (Manual) Eosinophils # (Manual) Basophils # (Manual) PT INR APTT ABG pH ABG pO2 ABG HCO3 ABG O2 Saturation ABG Base Excess -3.2 L ABG Hemoglobin 9.0 L Oxyhemoglobin 93.6 L Sodium Potassium Chloride Carbon Dioxide BUN Creatinine Glucose POC Glucose Lactic Acid Calcium Ionized Calcium 4.5 L Phosphorus Magnesium Total Bilirubin AST ALT Alkaline Phosphatase Ammonia Total Creatine Kinase CK-MB (CK-2) CK-MB (CK-2) Rel Index Total Protein Albumin Urine WBC (Auto) Vancomycin Trough Salicylates Acetaminophen Plasma/Serum Alcohol Crossmatch 11/23/19 11/24/19 11/24/19 06:32 04:35 04:35 WBC RBC Hgb Hct MCH RDW Plt Count Lymph % (Auto) [place] % (Auto) [place] # Baso # Seg Neutrophils % Seg Neuts % (Manual) Lymphocytes % (Manual) Monocytes % (Manual) Seg Neutrophils # Seg Neutrophils # Man Lymphocytes # (Manual) Monocytes # (Manual) Eosinophils # (Manual) Basophils # (Manual) PT INR APTT ABG pH ABG pO2 ABG HCO3 ABG O2 Saturation ABG Base Excess ABG Hemoglobin Oxyhemoglobin Sodium Potassium Chloride Carbon Dioxide BUN Creatinine Glucose POC Glucose Lactic Acid 3.30 H* Calcium Ionized Calcium Phosphorus Magnesium 1.40 L Total Bilirubin AST ALT Alkaline Phosphatase Ammonia 98.0 H Total Creatine Kinase CK-MB (CK-2) CK-MB (CK-2) Rel Index Total Protein Albumin Urine WBC (Auto) Vancomycin Trough Salicylates Acetaminophen Plasma/Serum Alcohol Crossmatch 11/24/19 11/25/19 11/25/19 05:22 04:34 05:05 WBC 17.3 H RBC 2.88 L Hgb 7.8 L Hct 24.6 L MCH 27 L RDW 18.5 H Plt Count Lymph % (Auto) 7.7 L [place] % (Auto) 9.7 H [place] # 1.7 H Baso # Seg Neutrophils % 82.2 H Seg Neuts % (Manual) Lymphocytes % (Manual) Monocytes % (Manual) Seg Neutrophils # 14.2 H Seg Neutrophils # Man Lymphocytes # (Manual) Monocytes # (Manual) Eosinophils # (Manual) Basophils # (Manual) PT INR APTT ABG pH 7.475 H ABG pO2 ABG HCO3 29.4 H 32.3 H ABG O2 Saturation ABG Base Excess 5.4 H 6.9 H ABG Hemoglobin 9.0 L 10.6 L Oxyhemoglobin 94.3 L Sodium Potassium Chloride Carbon Dioxide BUN Creatinine Glucose POC Glucose Lactic Acid Calcium Ionized Calcium Phosphorus Magnesium Total Bilirubin AST ALT Alkaline Phosphatase Ammonia Total Creatine Kinase CK-MB (CK-2) CK-MB (CK-2) Rel Index Total Protein Albumin Urine WBC (Auto) Vancomycin Trough Salicylates Acetaminophen Plasma/Serum Alcohol Crossmatch 11/25/19 11/25/19 11/26/19 05:05 22:46 03:31 WBC RBC Hgb Hct MCH RDW Plt Count Lymph % (Auto) [place] % (Auto) [place] # Baso # Seg Neutrophils % Seg Neuts % (Manual) Lymphocytes % (Manual) Monocytes % (Manual) Seg Neutrophils # Seg Neutrophils # Man Lymphocytes # (Manual) Monocytes # (Manual) Eosinophils # (Manual) Basophils # (Manual) PT INR APTT ABG pH 7.459 H ABG pO2 ABG HCO3 34.2 H ABG O2 Saturation ABG Base Excess 9.4 H ABG Hemoglobin 7.6 L Oxyhemoglobin 94.8 L Sodium 152 H D 147 H Potassium 2.3 L* D 2.8 L* D Chloride 107.8 H Carbon Dioxide 31 H D 33 H BUN Creatinine 0.6 L 0.6 L Glucose 148 H 177 H POC Glucose Lactic Acid Calcium Ionized Calcium Phosphorus Magnesium Total Bilirubin AST 105 H ALT 71 H Alkaline Phosphatase 155 H Ammonia Total Creatine Kinase CK-MB (CK-2) CK-MB (CK-2) Rel Index Total Protein 5.2 L D Albumin 2.9 L Urine WBC (Auto) Vancomycin Trough Salicylates Acetaminophen Plasma/Serum Alcohol Crossmatch 11/26/19 11/26/19 11/27/19 08:24 08:24 04:20 WBC 12.0 H RBC 3.00 L Hgb 8.0 L 9.3 L Hct 25.9 L 29.7 L MCH 27 L RDW 18.5 H Plt Count Lymph % (Auto) [place] % (Auto) [place] # Baso # Seg Neutrophils % Seg Neuts % (Manual) 89.0 H Lymphocytes % (Manual) 4.0 L Monocytes % (Manual) Seg Neutrophils # Seg Neutrophils # Man 10.7 H Lymphocytes # (Manual) 0.5 L Monocytes # (Manual) Eosinophils # (Manual) Basophils # (Manual) PT INR APTT ABG pH ABG pO2 ABG HCO3 ABG O2 Saturation ABG Base Excess ABG Hemoglobin Oxyhemoglobin Sodium 146 H Potassium 3.4 L D Chloride Carbon Dioxide BUN Creatinine 0.5 L Glucose 165 H POC Glucose Lactic Acid Calcium Ionized Calcium Phosphorus Magnesium Total Bilirubin AST 57 H ALT Alkaline Phosphatase 166 H Ammonia Total Creatine Kinase CK-MB (CK-2) CK-MB (CK-2) Rel Index Total Protein Albumin 2.9 L Urine WBC (Auto) Vancomycin Trough Salicylates Acetaminophen Plasma/Serum Alcohol Crossmatch 11/27/19 11/27/19 11/27/19 04:28 04:28 04:42 WBC RBC Hgb Hct MCH RDW Plt Count Lymph % (Auto) [place] % (Auto) [place] # Baso # Seg Neutrophils % Seg Neuts % (Manual) Lymphocytes % (Manual) Monocytes % (Manual) Seg Neutrophils # Seg Neutrophils # Man Lymphocytes # (Manual) Monocytes # (Manual) Eosinophils # (Manual) Basophils # (Manual) PT INR APTT ABG pH 7.470 H ABG pO2 74.0 L ABG HCO3 33.8 H ABG O2 Saturation ABG Base Excess 9.1 H ABG Hemoglobin 8.7 L Oxyhemoglobin 94.7 L Sodium 146 H Potassium 2.9 L* Chloride Carbon Dioxide BUN 25 H Creatinine Glucose 213 H POC Glucose Lactic Acid Calcium Ionized Calcium Phosphorus 1.00 L Magnesium Total Bilirubin AST ALT Alkaline Phosphatase Ammonia Total Creatine Kinase CK-MB (CK-2) CK-MB (CK-2) Rel Index Total Protein Albumin Urine WBC (Auto) Vancomycin Trough Salicylates Acetaminophen Plasma/Serum Alcohol Crossmatch 11/27/19 11/27/19 11/27/19 05:37 12:20 15:46 WBC RBC Hgb Hct MCH RDW Plt Count Lymph % (Auto) [place] % (Auto) [place] # Baso # Seg Neutrophils % Seg Neuts % (Manual) Lymphocytes % (Manual) Monocytes % (Manual) Seg Neutrophils # Seg Neutrophils # Man Lymphocytes # (Manual) Monocytes # (Manual) Eosinophils # (Manual) Basophils # (Manual) PT INR APTT ABG pH ABG pO2 ABG HCO3 ABG O2 Saturation ABG Base Excess ABG Hemoglobin Oxyhemoglobin Sodium 146 H Potassium 3.5 L D Chloride Carbon Dioxide BUN 24 H Creatinine 0.6 L Glucose 187 H POC Glucose 117 H 220 H Lactic Acid Calcium Ionized Calcium Phosphorus Magnesium Total Bilirubin AST ALT Alkaline Phosphatase Ammonia Total Creatine Kinase CK-MB (CK-2) CK-MB (CK-2) Rel Index Total Protein Albumin Urine WBC (Auto) Vancomycin Trough Salicylates Acetaminophen Plasma/Serum Alcohol Crossmatch 11/27/19 11/28/19 11/28/19 17:28 05:00 05:02 WBC RBC Hgb Hct MCH RDW Plt Count Lymph % (Auto) [place] % (Auto) [place] # Baso # Seg Neutrophils % Seg Neuts % (Manual) Lymphocytes % (Manual) Monocytes % (Manual) Seg Neutrophils # Seg Neutrophils # Man Lymphocytes # (Manual) Monocytes # (Manual) Eosinophils # (Manual) Basophils # (Manual) PT INR APTT ABG pH ABG pO2 72.4 L ABG HCO3 33.6 H ABG O2 Saturation 94.1 L ABG Base Excess 7.3 H ABG Hemoglobin Oxyhemoglobin 91.8 L Sodium 146 H Potassium 3.3 L Chloride Carbon Dioxide BUN 25 H Creatinine 0.6 L Glucose 176 H POC Glucose 198 H Lactic Acid Calcium Ionized Calcium Phosphorus Magnesium Total Bilirubin AST ALT Alkaline Phosphatase Ammonia Total Creatine Kinase CK-MB (CK-2) CK-MB (CK-2) Rel Index Total Protein Albumin Urine WBC (Auto) Vancomycin Trough Salicylates Acetaminophen Plasma/Serum Alcohol Crossmatch 11/28/19 11/28/19 11/29/19 05:02 18:55 10:43 WBC 15.2 H 19.0 H RBC 3.06 L 3.01 L Hgb 8.3 L 8.3 L Hct 27.0 L 26.4 L MCH 27 L RDW 19.0 H 19.7 H Plt Count 479 H 611 H Lymph % (Auto) [place] % (Auto) [place] # Baso # Seg Neutrophils % Seg Neuts % (Manual) 92.0 H Lymphocytes % (Manual) 2.0 L Monocytes % (Manual) Seg Neutrophils # Seg Neutrophils # Man 14.0 H Lymphocytes # (Manual) 0.3 L Monocytes # (Manual) Eosinophils # (Manual) Basophils # (Manual) PT INR APTT ABG pH ABG pO2 ABG HCO3 ABG O2 Saturation ABG Base Excess ABG Hemoglobin Oxyhemoglobin Sodium Potassium Chloride Carbon Dioxide BUN Creatinine Glucose POC Glucose 138 H Lactic Acid Calcium Ionized Calcium Phosphorus Magnesium Total Bilirubin AST ALT Alkaline Phosphatase Ammonia Total Creatine Kinase CK-MB (CK-2) CK-MB (CK-2) Rel Index Total Protein Albumin Urine WBC (Auto) Vancomycin Trough Salicylates Acetaminophen Plasma/Serum Alcohol Crossmatch 11/29/19 11/29/19 11/29/19 10:43 12:27 19:25 WBC RBC Hgb Hct MCH RDW Plt Count Lymph % (Auto) [place] % (Auto) [place] # Baso # Seg Neutrophils % Seg Neuts % (Manual) Lymphocytes % (Manual) Monocytes % (Manual) Seg Neutrophils # Seg Neutrophils # Man Lymphocytes # (Manual) Monocytes # (Manual) Eosinophils # (Manual) Basophils # (Manual) PT INR APTT ABG pH ABG pO2 ABG HCO3 ABG O2 Saturation ABG Base Excess ABG Hemoglobin Oxyhemoglobin Sodium Potassium 2.8 L* Chloride Carbon Dioxide BUN 20 H Creatinine 0.5 L Glucose 121 H POC Glucose 128 H 120 H Lactic Acid Calcium Ionized Calcium Phosphorus Magnesium Total Bilirubin AST ALT Alkaline Phosphatase Ammonia Total Creatine Kinase CK-MB (CK-2) CK-MB (CK-2) Rel Index Total Protein Albumin Urine WBC (Auto) Vancomycin Trough Salicylates Acetaminophen Plasma/Serum Alcohol Crossmatch 11/29/19 11/30/19 11/30/19 23:46 04:10 05:02 WBC RBC Hgb Hct MCH RDW Plt Count Lymph % (Auto) [place] % (Auto) [place] # Baso # Seg Neutrophils % Seg Neuts % (Manual) Lymphocytes % (Manual) Monocytes % (Manual) Seg Neutrophils # Seg Neutrophils # Man Lymphocytes # (Manual) Monocytes # (Manual) Eosinophils # (Manual) Basophils # (Manual) PT INR APTT ABG pH ABG pO2 76.3 L ABG HCO3 32.5 H ABG O2 Saturation ABG Base Excess 6.9 H ABG Hemoglobin 8.0 L Oxyhemoglobin 92.6 L Sodium Potassium Chloride Carbon Dioxide BUN Creatinine Glucose POC Glucose 116 H 128 H Lactic Acid Calcium Ionized Calcium Phosphorus Magnesium Total Bilirubin AST ALT Alkaline Phosphatase Ammonia Total Creatine Kinase CK-MB (CK-2) CK-MB (CK-2) Rel Index Total Protein Albumin Urine WBC (Auto) Vancomycin Trough Salicylates Acetaminophen Plasma/Serum Alcohol Crossmatch 11/30/19 11/30/19 11/30/19 05:25 05:25 12:59 WBC 18.4 H RBC 3.10 L Hgb 8.5 L Hct 27.5 L MCH 27 L RDW 20.9 H Plt Count 691 H Lymph % (Auto) 7.1 L [place] % (Auto) 7.7 H [place] # 1.4 H Baso # Seg Neutrophils % 83.4 H Seg Neuts % (Manual) Lymphocytes % (Manual) Monocytes % (Manual) Seg Neutrophils # 15.4 H Seg Neutrophils # Man Lymphocytes # (Manual) Monocytes # (Manual) Eosinophils # (Manual) Basophils # (Manual) PT INR APTT ABG pH ABG pO2 ABG HCO3 ABG O2 Saturation ABG Base Excess ABG Hemoglobin Oxyhemoglobin Sodium 146 H Potassium Chloride 107.2 H Carbon Dioxide BUN Creatinine 0.5 L Glucose 132 H POC Glucose 124 H Lactic Acid Calcium Ionized Calcium Phosphorus Magnesium Total Bilirubin AST 246 H ALT 274 H Alkaline Phosphatase 203 H Ammonia Total Creatine Kinase CK-MB (CK-2) CK-MB (CK-2) Rel Index Total Protein 5.4 L Albumin 2.9 L Urine WBC (Auto) Vancomycin Trough Salicylates Acetaminophen Plasma/Serum Alcohol Crossmatch 11/30/19 12/01/19 12/01/19 17:53 00:05 05:10 WBC RBC Hgb Hct MCH RDW Plt Count Lymph % (Auto) [place] % (Auto) [place] # Baso # Seg Neutrophils % Seg Neuts % (Manual) Lymphocytes % (Manual) Monocytes % (Manual) Seg Neutrophils # Seg Neutrophils # Man Lymphocytes # (Manual) Monocytes # (Manual) Eosinophils # (Manual) Basophils # (Manual) PT INR APTT ABG pH ABG pO2 ABG HCO3 ABG O2 Saturation ABG Base Excess ABG Hemoglobin Oxyhemoglobin Sodium Potassium Chloride Carbon Dioxide BUN Creatinine Glucose POC Glucose 113 H 143 H 145 H Lactic Acid Calcium Ionized Calcium Phosphorus Magnesium Total Bilirubin AST ALT Alkaline Phosphatase Ammonia Total Creatine Kinase CK-MB (CK-2) CK-MB (CK-2) Rel Index Total Protein Albumin Urine WBC (Auto) Vancomycin Trough Salicylates Acetaminophen Plasma/Serum Alcohol Crossmatch 12/01/19 12/01/19 12/01/19 05:33 08:23 08:23 WBC 22.7 H RBC 2.88 L Hgb 7.9 L Hct 25.2 L MCH 27 L RDW 21.0 H Plt Count 732 H Lymph % (Auto) [place] % (Auto) [place] # Baso # Seg Neutrophils % Seg Neuts % (Manual) 91.0 H Lymphocytes % (Manual) 3.0 L Monocytes % (Manual) Seg Neutrophils # Seg Neutrophils # Man 20.7 H Lymphocytes # (Manual) 0.7 L Monocytes # (Manual) 1.1 H Eosinophils # (Manual) Basophils # (Manual) PT INR APTT ABG pH ABG pO2 68.6 L ABG HCO3 34.1 H ABG O2 Saturation ABG Base Excess 9.0 H ABG Hemoglobin 6.5 L Oxyhemoglobin 94.7 L Sodium Potassium Chloride Carbon Dioxide BUN Creatinine 0.5 L Glucose 125 H POC Glucose Lactic Acid Calcium Ionized Calcium Phosphorus Magnesium Total Bilirubin AST ALT Alkaline Phosphatase Ammonia Total Creatine Kinase CK-MB (CK-2) CK-MB (CK-2) Rel Index Total Protein Albumin Urine WBC (Auto) Vancomycin Trough Salicylates Acetaminophen Plasma/Serum Alcohol Crossmatch 12/01/19 12/01/19 12/01/19 13:21 17:54 20:59 WBC RBC Hgb Hct MCH RDW Plt Count Lymph % (Auto) [place] % (Auto) [place] # Baso # Seg Neutrophils % Seg Neuts % (Manual) Lymphocytes % (Manual) Monocytes % (Manual) Seg Neutrophils # Seg Neutrophils # Man Lymphocytes # (Manual) Monocytes # (Manual) Eosinophils # (Manual) Basophils # (Manual) PT INR APTT ABG pH ABG pO2 78.3 L ABG HCO3 33.8 H ABG O2 Saturation 94.9 L ABG Base Excess 7.9 H ABG Hemoglobin 11.5 L Oxyhemoglobin 92.3 L Sodium Potassium Chloride Carbon Dioxide BUN Creatinine Glucose POC Glucose 111 H 115 H Lactic Acid Calcium Ionized Calcium Phosphorus Magnesium Total Bilirubin AST ALT Alkaline Phosphatase Ammonia Total Creatine Kinase CK-MB (CK-2) CK-MB (CK-2) Rel Index Total Protein Albumin Urine WBC (Auto) Vancomycin Trough Salicylates Acetaminophen Plasma/Serum Alcohol Crossmatch 12/02/19 12/03/19 12/04/19 12:55 20:00 04:26 WBC 15.2 H RBC 2.69 L Hgb 7.4 L Hct 23.6 L MCH 27 L RDW 19.9 H Plt Count 838 H Lymph % (Auto) [place] % (Auto) [place] # Baso # Seg Neutrophils % Seg Neuts % (Manual) Lymphocytes % (Manual) Monocytes % (Manual) Seg Neutrophils # Seg Neutrophils # Man Lymphocytes # (Manual) Monocytes # (Manual) Eosinophils # (Manual) Basophils # (Manual) PT INR APTT ABG pH ABG pO2 68.3 L ABG HCO3 33.5 H ABG O2 Saturation 93.5 L ABG Base Excess 8.4 H ABG Hemoglobin 7.3 L Oxyhemoglobin 90.9 L Sodium Potassium Chloride Carbon Dioxide BUN Creatinine Glucose POC Glucose 107 H Lactic Acid Calcium Ionized Calcium Phosphorus Magnesium Total Bilirubin AST ALT Alkaline Phosphatase Ammonia Total Creatine Kinase CK-MB (CK-2) CK-MB (CK-2) Rel Index Total Protein Albumin Urine WBC (Auto) Vancomycin Trough Salicylates Acetaminophen Plasma/Serum Alcohol Crossmatch 12/04/19 12/04/19 12/04/19 04:26 07:45 12:02 WBC 15.9 H RBC 2.88 L Hgb 7.9 L Hct 25.1 L MCH RDW 20.4 H Plt Count 839 H Lymph % (Auto) 11.3 L [place] % (Auto) 15.2 H [place] # 2.4 H Baso # Seg Neutrophils % 72.4 H Seg Neuts % (Manual) Lymphocytes % (Manual) Monocytes % (Manual) Seg Neutrophils # 11.5 H Seg Neutrophils # Man Lymphocytes # (Manual) Monocytes # (Manual) Eosinophils # (Manual) Basophils # (Manual) PT INR APTT ABG pH ABG pO2 ABG HCO3 ABG O2 Saturation ABG Base Excess ABG Hemoglobin Oxyhemoglobin Sodium Potassium Chloride 96.5 L Carbon Dioxide BUN 21 H Creatinine 0.6 L Glucose 107 H POC Glucose 138 H Lactic Acid Calcium Ionized Calcium Phosphorus Magnesium Total Bilirubin AST ALT Alkaline Phosphatase Ammonia Total Creatine Kinase CK-MB (CK-2) CK-MB (CK-2) Rel Index Total Protein Albumin Urine WBC (Auto) Vancomycin Trough Salicylates Acetaminophen Plasma/Serum Alcohol Crossmatch 12/04/19 12/05/19 12/05/19 18:16 11:55 18:36 WBC RBC Hgb Hct MCH RDW Plt Count Lymph % (Auto) [place] % (Auto) [place] # Baso # Seg Neutrophils % Seg Neuts % (Manual) Lymphocytes % (Manual) Monocytes % (Manual) Seg Neutrophils # Seg Neutrophils # Man Lymphocytes # (Manual) Monocytes # (Manual) Eosinophils # (Manual) Basophils # (Manual) PT INR APTT ABG pH ABG pO2 ABG HCO3 ABG O2 Saturation ABG Base Excess ABG Hemoglobin Oxyhemoglobin Sodium Potassium Chloride Carbon Dioxide BUN Creatinine Glucose POC Glucose 135 H 125 H 135 H Lactic Acid Calcium Ionized Calcium Phosphorus Magnesium Total Bilirubin AST ALT Alkaline Phosphatase Ammonia Total Creatine Kinase CK-MB (CK-2) CK-MB (CK-2) Rel Index Total Protein Albumin Urine WBC (Auto) Vancomycin Trough Salicylates Acetaminophen Plasma/Serum Alcohol Crossmatch 12/05/19 12/06/19 12/06/19 23:30 04:14 05:43 WBC RBC Hgb Hct MCH RDW Plt Count Lymph % (Auto) [place] % (Auto) [place] # Baso # Seg Neutrophils % Seg Neuts % (Manual) Lymphocytes % (Manual) Monocytes % (Manual) Seg Neutrophils # Seg Neutrophils # Man Lymphocytes # (Manual) Monocytes # (Manual) Eosinophils # (Manual) Basophils # (Manual) PT INR APTT ABG pH ABG pO2 ABG HCO3 ABG O2 Saturation ABG Base Excess ABG Hemoglobin Oxyhemoglobin Sodium Potassium 5.6 H Chloride 95.0 L Carbon Dioxide BUN 48 H Creatinine 1.3 H D Glucose POC Glucose 126 H 121 H Lactic Acid Calcium Ionized Calcium Phosphorus Magnesium Total Bilirubin AST 89 H ALT 98 H Alkaline Phosphatase 476 H Ammonia Total Creatine Kinase CK-MB (CK-2) CK-MB (CK-2) Rel Index Total Protein Albumin 2.8 L Urine WBC (Auto) Vancomycin Trough Salicylates Acetaminophen Plasma/Serum Alcohol Crossmatch 12/06/19 12/06/19 12/07/19 10:39 14:34 00:19 WBC 17.3 H RBC 2.60 L Hgb 7.1 L Hct 22.7 L MCH 27 L RDW 20.1 H Plt Count 832 H Lymph % (Auto) [place] % (Auto) [place] # Baso # Seg Neutrophils % Seg Neuts % (Manual) Lymphocytes % (Manual) Monocytes % (Manual) Seg Neutrophils # Seg Neutrophils # Man Lymphocytes # (Manual) Monocytes # (Manual) Eosinophils # (Manual) Basophils # (Manual) PT INR APTT ABG pH ABG pO2 ABG HCO3 ABG O2 Saturation ABG Base Excess ABG Hemoglobin Oxyhemoglobin Sodium Potassium Chloride Carbon Dioxide BUN Creatinine Glucose POC Glucose 128 H 136 H Lactic Acid Calcium Ionized Calcium Phosphorus Magnesium Total Bilirubin AST ALT Alkaline Phosphatase Ammonia Total Creatine Kinase CK-MB (CK-2) CK-MB (CK-2) Rel Index Total Protein Albumin Urine WBC (Auto) Vancomycin Trough Salicylates Acetaminophen Plasma/Serum Alcohol Crossmatch 12/07/19 12/07/19 12/07/19 03:44 03:44 05:53 WBC 16.2 H RBC 2.56 L Hgb 7.1 L Hct 22.3 L MCH RDW 19.4 H Plt Count 782 H Lymph % (Auto) [place] % (Auto) [place] # Baso # Seg Neutrophils % Seg Neuts % (Manual) Lymphocytes % (Manual) Monocytes % (Manual) Seg Neutrophils # Seg Neutrophils # Man Lymphocytes # (Manual) Monocytes # (Manual) Eosinophils # (Manual) Basophils # (Manual) PT INR APTT ABG pH ABG pO2 ABG HCO3 ABG O2 Saturation ABG Base Excess ABG Hemoglobin Oxyhemoglobin Sodium Potassium Chloride 95.6 L Carbon Dioxide BUN 56 H Creatinine 1.4 H Glucose 120 H POC Glucose 128 H Lactic Acid Calcium 10.3 H Ionized Calcium Phosphorus Magnesium Total Bilirubin AST ALT Alkaline Phosphatase Ammonia Total Creatine Kinase CK-MB (CK-2) CK-MB (CK-2) Rel Index Total Protein Albumin Urine WBC (Auto) Vancomycin Trough Salicylates Acetaminophen Plasma/Serum Alcohol Crossmatch 12/07/19 12/07/19 12/08/19 12:54 23:47 00:20 WBC RBC Hgb Hct MCH RDW Plt Count Lymph % (Auto) [place] % (Auto) [place] # Baso # Seg Neutrophils % Seg Neuts % (Manual) Lymphocytes % (Manual) Monocytes % (Manual) Seg Neutrophils # Seg Neutrophils # Man Lymphocytes # (Manual) Monocytes # (Manual) Eosinophils # (Manual) Basophils # (Manual) PT INR APTT ABG pH ABG pO2 ABG HCO3 ABG O2 Saturation ABG Base Excess ABG Hemoglobin Oxyhemoglobin Sodium Potassium Chloride Carbon Dioxide BUN Creatinine Glucose POC Glucose 128 H 130 H 124 H Lactic Acid Calcium Ionized Calcium Phosphorus Magnesium Total Bilirubin AST ALT Alkaline Phosphatase Ammonia Total Creatine Kinase CK-MB (CK-2) CK-MB (CK-2) Rel Index Total Protein Albumin Urine WBC (Auto) Vancomycin Trough Salicylates Acetaminophen Plasma/Serum Alcohol Crossmatch 12/08/19 12/08/19 12/08/19 06:38 12:04 18:26 WBC RBC Hgb Hct MCH RDW Plt Count Lymph % (Auto) [place] % (Auto) [place] # Baso # Seg Neutrophils % Seg Neuts % (Manual) Lymphocytes % (Manual) Monocytes % (Manual) Seg Neutrophils # Seg Neutrophils # Man Lymphocytes # (Manual) Monocytes # (Manual) Eosinophils # (Manual) Basophils # (Manual) PT INR APTT ABG pH ABG pO2 ABG HCO3 ABG O2 Saturation ABG Base Excess ABG Hemoglobin Oxyhemoglobin Sodium Potassium Chloride Carbon Dioxide BUN Creatinine Glucose POC Glucose 137 H 129 H 150 H Lactic Acid Calcium Ionized Calcium Phosphorus Magnesium Total Bilirubin AST ALT Alkaline Phosphatase Ammonia Total Creatine Kinase CK-MB (CK-2) CK-MB (CK-2) Rel Index Total Protein Albumin Urine WBC (Auto) Vancomycin Trough Salicylates Acetaminophen Plasma/Serum Alcohol Crossmatch 12/09/19 12/09/19 12/09/19 00:56 05:34 06:13 WBC RBC Hgb Hct MCH RDW Plt Count Lymph % (Auto) [place] % (Auto) [place] # Baso # Seg Neutrophils % Seg Neuts % (Manual) Lymphocytes % (Manual) Monocytes % (Manual) Seg Neutrophils # Seg Neutrophils # Man Lymphocytes # (Manual) Monocytes # (Manual) Eosinophils # (Manual) Basophils # (Manual) PT INR APTT ABG pH ABG pO2 ABG HCO3 ABG O2 Saturation ABG Base Excess ABG Hemoglobin Oxyhemoglobin Sodium 146 H Potassium Chloride Carbon Dioxide BUN 66 H Creatinine 1.9 H Glucose 116 H POC Glucose 130 H 130 H Lactic Acid Calcium Ionized Calcium Phosphorus Magnesium Total Bilirubin AST ALT Alkaline Phosphatase Ammonia Total Creatine Kinase CK-MB (CK-2) CK-MB (CK-2) Rel Index Total Protein Albumin Urine WBC (Auto) Vancomycin Trough Salicylates Acetaminophen Plasma/Serum Alcohol Crossmatch 12/09/19 12/09/19 12/10/19 11:52 17:50 00:14 WBC RBC Hgb Hct MCH RDW Plt Count Lymph % (Auto) [place] % (Auto) [place] # Baso # Seg Neutrophils % Seg Neuts % (Manual) Lymphocytes % (Manual) Monocytes % (Manual) Seg Neutrophils # Seg Neutrophils # Man Lymphocytes # (Manual) Monocytes # (Manual) Eosinophils # (Manual) Basophils # (Manual) PT INR APTT ABG pH ABG pO2 ABG HCO3 ABG O2 Saturation ABG Base Excess ABG Hemoglobin Oxyhemoglobin Sodium Potassium Chloride Carbon Dioxide BUN Creatinine Glucose POC Glucose 135 H 120 H 116 H Lactic Acid Calcium Ionized Calcium Phosphorus Magnesium Total Bilirubin AST ALT Alkaline Phosphatase Ammonia Total Creatine Kinase CK-MB (CK-2) CK-MB (CK-2) Rel Index Total Protein Albumin Urine WBC (Auto) Vancomycin Trough Salicylates Acetaminophen Plasma/Serum Alcohol Crossmatch 12/10/19 12/10/19 12/10/19 05:38 11:38 17:34 WBC RBC Hgb Hct MCH RDW Plt Count Lymph % (Auto) [place] % (Auto) [place] # Baso # Seg Neutrophils % Seg Neuts % (Manual) Lymphocytes % (Manual) Monocytes % (Manual) Seg Neutrophils # Seg Neutrophils # Man Lymphocytes # (Manual) Monocytes # (Manual) Eosinophils # (Manual) Basophils # (Manual) PT INR APTT ABG pH ABG pO2 ABG HCO3 ABG O2 Saturation ABG Base Excess ABG Hemoglobin Oxyhemoglobin Sodium Potassium Chloride Carbon Dioxide BUN Creatinine Glucose POC Glucose 115 H 112 H 130 H Lactic Acid Calcium Ionized Calcium Phosphorus Magnesium Total Bilirubin AST ALT Alkaline Phosphatase Ammonia Total Creatine Kinase CK-MB (CK-2) CK-MB (CK-2) Rel Index Total Protein Albumin Urine WBC (Auto) Vancomycin Trough Salicylates Acetaminophen Plasma/Serum Alcohol Crossmatch 12/11/19 12/11/19 12/11/19 00:20 05:31 12:22 WBC RBC Hgb Hct MCH RDW Plt Count Lymph % (Auto) [place] % (Auto) [place] # Baso # Seg Neutrophils % Seg Neuts % (Manual) Lymphocytes % (Manual) Monocytes % (Manual) Seg Neutrophils # Seg Neutrophils # Man Lymphocytes # (Manual) Monocytes # (Manual) Eosinophils # (Manual) Basophils # (Manual) PT INR APTT ABG pH ABG pO2 ABG HCO3 ABG O2 Saturation ABG Base Excess ABG Hemoglobin Oxyhemoglobin Sodium Potassium Chloride Carbon Dioxide BUN Creatinine Glucose POC Glucose 124 H 132 H 128 H Lactic Acid Calcium Ionized Calcium Phosphorus Magnesium Total Bilirubin AST ALT Alkaline Phosphatase Ammonia Total Creatine Kinase CK-MB (CK-2) CK-MB (CK-2) Rel Index Total Protein Albumin Urine WBC (Auto) Vancomycin Trough Salicylates Acetaminophen Plasma/Serum Alcohol Crossmatch 12/11/19 12/11/19 12/12/19 18:04 23:42 03:51 WBC RBC Hgb Hct MCH RDW Plt Count Lymph % (Auto) [place] % (Auto) [place] # Baso # Seg Neutrophils % Seg Neuts % (Manual) Lymphocytes % (Manual) Monocytes % (Manual) Seg Neutrophils # Seg Neutrophils # Man Lymphocytes # (Manual) Monocytes # (Manual) Eosinophils # (Manual) Basophils # (Manual) PT INR APTT ABG pH ABG pO2 ABG HCO3 ABG O2 Saturation ABG Base Excess ABG Hemoglobin Oxyhemoglobin Sodium 149 H Potassium Chloride Carbon Dioxide 20 L D BUN 77 H Creatinine 2.8 H Glucose POC Glucose 133 H 154 H Lactic Acid Calcium Ionized Calcium Phosphorus Magnesium Total Bilirubin AST ALT Alkaline Phosphatase Ammonia Total Creatine Kinase CK-MB (CK-2) CK-MB (CK-2) Rel Index Total Protein Albumin Urine WBC (Auto) Vancomycin Trough Salicylates Acetaminophen Plasma/Serum Alcohol Crossmatch 12/12/19 12/12/19 12/12/19 05:18 05:26 10:30 WBC 18.0 H RBC 2.51 L Hgb 6.8 L Hct 22.0 L MCH 27 L RDW 19.9 H Plt Count 582 H Lymph % (Auto) [place] % (Auto) [place] # Baso # Seg Neutrophils % Seg Neuts % (Manual) Lymphocytes % (Manual) Monocytes % (Manual) Seg Neutrophils # Seg Neutrophils # Man Lymphocytes # (Manual) Monocytes # (Manual) Eosinophils # (Manual) Basophils # (Manual) PT INR APTT ABG pH ABG pO2 ABG HCO3 ABG O2 Saturation ABG Base Excess ABG Hemoglobin Oxyhemoglobin Sodium Potassium Chloride Carbon Dioxide BUN Creatinine Glucose POC Glucose 135 H Lactic Acid Calcium Ionized Calcium Phosphorus Magnesium Total Bilirubin AST ALT Alkaline Phosphatase Ammonia Total Creatine Kinase CK-MB (CK-2) CK-MB (CK-2) Rel Index Total Protein Albumin Urine WBC (Auto) Vancomycin Trough Salicylates Acetaminophen Plasma/Serum Alcohol Crossmatch See Detail 12/12/19 12/12/19 12/12/19 11:44 18:10 23:21 WBC RBC Hgb Hct MCH RDW Plt Count Lymph % (Auto) [place] % (Auto) [place] # Baso # Seg Neutrophils % Seg Neuts % (Manual) Lymphocytes % (Manual) Monocytes % (Manual) Seg Neutrophils # Seg Neutrophils # Man Lymphocytes # (Manual) Monocytes # (Manual) Eosinophils # (Manual) Basophils # (Manual) PT INR APTT ABG pH ABG pO2 ABG HCO3 ABG O2 Saturation ABG Base Excess ABG Hemoglobin Oxyhemoglobin Sodium Potassium Chloride Carbon Dioxide BUN Creatinine Glucose POC Glucose 108 H 107 H 126 H Lactic Acid Calcium Ionized Calcium Phosphorus Magnesium Total Bilirubin AST ALT Alkaline Phosphatase Ammonia Total Creatine Kinase CK-MB (CK-2) CK-MB (CK-2) Rel Index Total Protein Albumin Urine WBC (Auto) Vancomycin Trough Salicylates Acetaminophen Plasma/Serum Alcohol Crossmatch 12/13/19 12/13/19 12/13/19 05:41 07:48 07:48 WBC 38.3 H RBC 2.37 L Hgb 6.3 L Hct 20.9 L MCH 27 L RDW 20.2 H Plt Count 546 H Lymph % (Auto) [place] % (Auto) [place] # Baso # Seg Neutrophils % Seg Neuts % (Manual) 93.0 H Lymphocytes % (Manual) 1.0 L Monocytes % (Manual) Seg Neutrophils # Seg Neutrophils # Man 35.6 H Lymphocytes # (Manual) 0.4 L Monocytes # (Manual) Eosinophils # (Manual) Basophils # (Manual) 0.4 H PT INR APTT ABG pH ABG pO2 ABG HCO3 ABG O2 Saturation ABG Base Excess ABG Hemoglobin Oxyhemoglobin Sodium 152 H Potassium 3.1 L D Chloride 111.9 H Carbon Dioxide 21 L BUN 53 H Creatinine 1.9 H Glucose 141 H POC Glucose 128 H Lactic Acid Calcium Ionized Calcium Phosphorus Magnesium Total Bilirubin AST ALT Alkaline Phosphatase 316 H Ammonia Total Creatine Kinase CK-MB (CK-2) CK-MB (CK-2) Rel Index Total Protein Albumin 2.4 L Urine WBC (Auto) Vancomycin Trough Salicylates Acetaminophen Plasma/Serum Alcohol Crossmatch 12/13/19 12/13/19 12/14/19 18:17 23:19 05:36 WBC RBC Hgb Hct MCH RDW Plt Count Lymph % (Auto) [place] % (Auto) [place] # Baso # Seg Neutrophils % Seg Neuts % (Manual) Lymphocytes % (Manual) Monocytes % (Manual) Seg Neutrophils # Seg Neutrophils # Man Lymphocytes # (Manual) Monocytes # (Manual) Eosinophils # (Manual) Basophils # (Manual) PT INR APTT ABG pH ABG pO2 ABG HCO3 ABG O2 Saturation ABG Base Excess ABG Hemoglobin Oxyhemoglobin Sodium Potassium Chloride Carbon Dioxide BUN Creatinine Glucose POC Glucose 141 H 158 H 182 H Lactic Acid Calcium Ionized Calcium Phosphorus Magnesium Total Bilirubin AST ALT Alkaline Phosphatase Ammonia Total Creatine Kinase CK-MB (CK-2) CK-MB (CK-2) Rel Index Total Protein Albumin Urine WBC (Auto) Vancomycin Trough Salicylates Acetaminophen Plasma/Serum Alcohol Crossmatch 12/14/19 12/14/19 12/14/19 08:48 08:48 10:31 WBC 33.3 H RBC 2.70 L Hgb 7.9 L 8.0 L Hct 25.3 L 24.0 L MCH RDW 19.2 H Plt Count 476 H Lymph % (Auto) [place] % (Auto) [place] # Baso # Seg Neutrophils % Seg Neuts % (Manual) Lymphocytes % (Manual) Monocytes % (Manual) Seg Neutrophils # Seg Neutrophils # Man Lymphocytes # (Manual) Monocytes # (Manual) Eosinophils # (Manual) Basophils # (Manual) PT INR APTT ABG pH ABG pO2 ABG HCO3 ABG O2 Saturation ABG Base Excess ABG Hemoglobin Oxyhemoglobin Sodium 153 H Potassium 2.5 L* Chloride 114.9 H Carbon Dioxide 20 L BUN 38 H Creatinine 1.4 H Glucose 177 H POC Glucose Lactic Acid Calcium Ionized Calcium Phosphorus Magnesium Total Bilirubin AST ALT Alkaline Phosphatase Ammonia Total Creatine Kinase CK-MB (CK-2) CK-MB (CK-2) Rel Index Total Protein Albumin Urine WBC (Auto) Vancomycin Trough Salicylates Acetaminophen Plasma/Serum Alcohol Crossmatch 12/14/19 12/14/19 12/14/19 12:57 16:15 17:50 WBC RBC Hgb Hct MCH RDW Plt Count Lymph % (Auto) [place] % (Auto) [place] # Baso # Seg Neutrophils % Seg Neuts % (Manual) Lymphocytes % (Manual) Monocytes % (Manual) Seg Neutrophils # Seg Neutrophils # Man Lymphocytes # (Manual) Monocytes # (Manual) Eosinophils # (Manual) Basophils # (Manual) PT INR APTT ABG pH ABG pO2 73.6 L ABG HCO3 ABG O2 Saturation ABG Base Excess ABG Hemoglobin 7.6 L Oxyhemoglobin 94.0 L Sodium Potassium Chloride Carbon Dioxide BUN Creatinine Glucose POC Glucose 174 H 150 H Lactic Acid Calcium Ionized Calcium Phosphorus Magnesium Total Bilirubin AST ALT Alkaline Phosphatase Ammonia Total Creatine Kinase CK-MB (CK-2) CK-MB (CK-2) Rel Index Total Protein Albumin Urine WBC (Auto) Vancomycin Trough Salicylates Acetaminophen Plasma/Serum Alcohol Crossmatch 12/15/19 12/15/19 12/15/19 00:28 05:27 07:23 WBC 30.0 H RBC 3.11 L Hgb 8.6 L Hct 27.7 L MCH RDW 20.0 H Plt Count 473 H Lymph % (Auto) [place] % (Auto) [place] # Baso # Seg Neutrophils % Seg Neuts % (Manual) Lymphocytes % (Manual) Monocytes % (Manual) Seg Neutrophils # Seg Neutrophils # Man Lymphocytes # (Manual) Monocytes # (Manual) Eosinophils # (Manual) Basophils # (Manual) PT INR APTT ABG pH ABG pO2 ABG HCO3 ABG O2 Saturation ABG Base Excess ABG Hemoglobin Oxyhemoglobin Sodium Potassium Chloride Carbon Dioxide BUN Creatinine Glucose POC Glucose 167 H 148 H Lactic Acid Calcium Ionized Calcium Phosphorus Magnesium Total Bilirubin AST ALT Alkaline Phosphatase Ammonia Total Creatine Kinase CK-MB (CK-2) CK-MB (CK-2) Rel Index Total Protein Albumin Urine WBC (Auto) Vancomycin Trough Salicylates Acetaminophen Plasma/Serum Alcohol Crossmatch 12/15/19 12/15/19 12/15/19 07:23 12:21 17:41 WBC RBC Hgb Hct MCH RDW Plt Count Lymph % (Auto) [place] % (Auto) [place] # Baso # Seg Neutrophils % Seg Neuts % (Manual) Lymphocytes % (Manual) Monocytes % (Manual) Seg Neutrophils # Seg Neutrophils # Man Lymphocytes # (Manual) Monocytes # (Manual) Eosinophils # (Manual) Basophils # (Manual) PT INR APTT ABG pH ABG pO2 ABG HCO3 ABG O2 Saturation ABG Base Excess ABG Hemoglobin Oxyhemoglobin Sodium 147 H Potassium 3.5 L D Chloride 111.2 H Carbon Dioxide 19 L BUN 29 H Creatinine Glucose 126 H POC Glucose 154 H 144 H Lactic Acid Calcium Ionized Calcium Phosphorus Magnesium Total Bilirubin AST ALT Alkaline Phosphatase Ammonia Total Creatine Kinase CK-MB (CK-2) CK-MB (CK-2) Rel Index Total Protein Albumin Urine WBC (Auto) Vancomycin Trough Salicylates Acetaminophen Plasma/Serum Alcohol Crossmatch 12/16/19 12/16/19 12/16/19 00:22 05:30 05:44 WBC 30.8 H RBC 2.58 L Hgb 7.1 L Hct 22.7 L MCH RDW 19.6 H Plt Count 451 H Lymph % (Auto) [place] % (Auto) [place] # Baso # Seg Neutrophils % Seg Neuts % (Manual) Lymphocytes % (Manual) Monocytes % (Manual) Seg Neutrophils # Seg Neutrophils # Man Lymphocytes # (Manual) Monocytes # (Manual) Eosinophils # (Manual) Basophils # (Manual) PT INR APTT ABG pH ABG pO2 ABG HCO3 ABG O2 Saturation ABG Base Excess ABG Hemoglobin Oxyhemoglobin Sodium Potassium Chloride Carbon Dioxide BUN Creatinine Glucose POC Glucose 139 H 126 H Lactic Acid Calcium Ionized Calcium Phosphorus Magnesium Total Bilirubin AST ALT Alkaline Phosphatase Ammonia Total Creatine Kinase CK-MB (CK-2) CK-MB (CK-2) Rel Index Total Protein Albumin Urine WBC (Auto) Vancomycin Trough Salicylates Acetaminophen Plasma/Serum Alcohol Crossmatch 12/16/19 12/16/19 12/16/19 05:44 11:48 17:37 WBC RBC Hgb Hct MCH RDW Plt Count Lymph % (Auto) [place] % (Auto) [place] # Baso # Seg Neutrophils % Seg Neuts % (Manual) Lymphocytes % (Manual) Monocytes % (Manual) Seg Neutrophils # Seg Neutrophils # Man Lymphocytes # (Manual) Monocytes # (Manual) Eosinophils # (Manual) Basophils # (Manual) PT INR APTT ABG pH ABG pO2 ABG HCO3 ABG O2 Saturation ABG Base Excess ABG Hemoglobin Oxyhemoglobin Sodium Potassium 3.4 L Chloride 109.2 H Carbon Dioxide 19 L BUN 27 H Creatinine Glucose 124 H POC Glucose 125 H 148 H Lactic Acid Calcium Ionized Calcium Phosphorus Magnesium Total Bilirubin AST ALT Alkaline Phosphatase Ammonia Total Creatine Kinase CK-MB (CK-2) CK-MB (CK-2) Rel Index Total Protein Albumin Urine WBC (Auto) Vancomycin Trough Salicylates Acetaminophen Plasma/Serum Alcohol Crossmatch 12/16/19 12/17/19 12/17/19 23:43 05:28 12:47 WBC RBC Hgb Hct MCH RDW Plt Count Lymph % (Auto) [place] % (Auto) [place] # Baso # Seg Neutrophils % Seg Neuts % (Manual) Lymphocytes % (Manual) Monocytes % (Manual) Seg Neutrophils # Seg Neutrophils # Man Lymphocytes # (Manual) Monocytes # (Manual) Eosinophils # (Manual) Basophils # (Manual) PT INR APTT ABG pH ABG pO2 ABG HCO3 ABG O2 Saturation ABG Base Excess ABG Hemoglobin Oxyhemoglobin Sodium Potassium Chloride Carbon Dioxide BUN Creatinine Glucose POC Glucose 142 H 140 H 125 H Lactic Acid Calcium Ionized Calcium Phosphorus Magnesium Total Bilirubin AST ALT Alkaline Phosphatase Ammonia Total Creatine Kinase CK-MB (CK-2) CK-MB (CK-2) Rel Index Total Protein Albumin Urine WBC (Auto) Vancomycin Trough Salicylates Acetaminophen Plasma/Serum Alcohol Crossmatch 12/17/19 12/17/19 12/17/19 17:05 18:00 Unknown WBC RBC Hgb Hct MCH RDW Plt Count Lymph % (Auto) [place] % (Auto) [place] # Baso # Seg Neutrophils % Seg Neuts % (Manual) Lymphocytes % (Manual) Monocytes % (Manual) Seg Neutrophils # Seg Neutrophils # Man Lymphocytes # (Manual) Monocytes # (Manual) Eosinophils # (Manual) Basophils # (Manual) PT INR APTT ABG pH ABG pO2 68.1 L ABG HCO3 ABG O2 Saturation 93.7 L ABG Base Excess ABG Hemoglobin 5.0 L Oxyhemoglobin 91.7 L Sodium Potassium Chloride Carbon Dioxide BUN Creatinine Glucose POC Glucose 140 H Lactic Acid Calcium Ionized Calcium Phosphorus Magnesium Total Bilirubin AST ALT Alkaline Phosphatase Ammonia Total Creatine Kinase CK-MB (CK-2) CK-MB (CK-2) Rel Index Total Protein Albumin Urine WBC (Auto) Vancomycin Trough Salicylates Acetaminophen Plasma/Serum Alcohol Crossmatch 12/18/19 12/18/19 12/18/19 00:16 04:53 04:53 WBC 28.6 H RBC 2.27 L Hgb 6.3 L Hct 19.5 L* MCH RDW 20.0 H Plt Count 497 H Lymph % (Auto) [place] % (Auto) [place] # Baso # Seg Neutrophils % Seg Neuts % (Manual) Lymphocytes % (Manual) Monocytes % (Manual) Seg Neutrophils # Seg Neutrophils # Man Lymphocytes # (Manual) Monocytes # (Manual) Eosinophils # (Manual) Basophils # (Manual) PT INR APTT ABG pH ABG pO2 ABG HCO3 ABG O2 Saturation ABG Base Excess ABG Hemoglobin Oxyhemoglobin Sodium Potassium Chloride 107.9 H Carbon Dioxide 20 L BUN 27 H Creatinine 0.6 L Glucose 116 H POC Glucose 123 H Lactic Acid Calcium Ionized Calcium Phosphorus Magnesium Total Bilirubin AST ALT Alkaline Phosphatase Ammonia Total Creatine Kinase CK-MB (CK-2) CK-MB (CK-2) Rel Index Total Protein Albumin Urine WBC (Auto) Vancomycin Trough Salicylates Acetaminophen Plasma/Serum Alcohol Crossmatch 12/18/19 12/18/19 12/18/19 06:38 11:22 12:08 WBC RBC Hgb Hct MCH RDW Plt Count Lymph % (Auto) [place] % (Auto) [place] # Baso # Seg Neutrophils % Seg Neuts % (Manual) Lymphocytes % (Manual) Monocytes % (Manual) Seg Neutrophils # Seg Neutrophils # Man Lymphocytes # (Manual) Monocytes # (Manual) Eosinophils # (Manual) Basophils # (Manual) PT INR APTT ABG pH ABG pO2 ABG HCO3 ABG O2 Saturation ABG Base Excess ABG Hemoglobin Oxyhemoglobin Sodium Potassium Chloride Carbon Dioxide BUN Creatinine Glucose POC Glucose 120 H 127 H Lactic Acid Calcium Ionized Calcium Phosphorus Magnesium Total Bilirubin AST ALT Alkaline Phosphatase Ammonia Total Creatine Kinase CK-MB (CK-2) CK-MB (CK-2) Rel Index Total Protein Albumin Urine WBC (Auto) Vancomycin Trough Salicylates Acetaminophen Plasma/Serum Alcohol Crossmatch See Detail 12/18/19 12/18/19 12/18/19 14:05 17:49 23:53 WBC RBC Hgb Hct MCH RDW Plt Count Lymph % (Auto) [place] % (Auto) [place] # Baso # Seg Neutrophils % Seg Neuts % (Manual) Lymphocytes % (Manual) Monocytes % (Manual) Seg Neutrophils # Seg Neutrophils # Man Lymphocytes # (Manual) Monocytes # (Manual) Eosinophils # (Manual) Basophils # (Manual) PT INR APTT ABG pH 7.267 L ABG pO2 69.8 L ABG HCO3 ABG O2 Saturation 88.4 L ABG Base Excess ABG Hemoglobin 7.1 L Oxyhemoglobin 86.4 L Sodium Potassium Chloride Carbon Dioxide BUN Creatinine Glucose POC Glucose 157 H 128 H Lactic Acid Calcium Ionized Calcium Phosphorus Magnesium Total Bilirubin AST ALT Alkaline Phosphatase Ammonia Total Creatine Kinase CK-MB (CK-2) CK-MB (CK-2) Rel Index Total Protein Albumin Urine WBC (Auto) Vancomycin Trough Salicylates Acetaminophen Plasma/Serum Alcohol Crossmatch 12/19/19 12/19/19 12/19/19 03:37 03:37 05:25 WBC 31.3 H RBC 2.60 L Hgb 7.6 L Hct 23.0 L MCH RDW 19.4 H Plt Count 530 H Lymph % (Auto) [place] % (Auto) [place] # Baso # Seg Neutrophils % Seg Neuts % (Manual) Lymphocytes % (Manual) Monocytes % (Manual) Seg Neutrophils # Seg Neutrophils # Man Lymphocytes # (Manual) Monocytes # (Manual) Eosinophils # (Manual) Basophils # (Manual) PT INR APTT ABG pH ABG pO2 ABG HCO3 ABG O2 Saturation ABG Base Excess ABG Hemoglobin Oxyhemoglobin Sodium Potassium Chloride Carbon Dioxide 18 L BUN 36 H Creatinine Glucose 111 H POC Glucose 123 H Lactic Acid Calcium Ionized Calcium Phosphorus Magnesium Total Bilirubin AST ALT Alkaline Phosphatase Ammonia Total Creatine Kinase CK-MB (CK-2) CK-MB (CK-2) Rel Index Total Protein Albumin Urine WBC (Auto) Vancomycin Trough Salicylates Acetaminophen Plasma/Serum Alcohol Crossmatch 12/19/19 12/19/19 12/20/19 12:59 18:33 00:00 WBC RBC Hgb Hct MCH RDW Plt Count Lymph % (Auto) [place] % (Auto) [place] # Baso # Seg Neutrophils % Seg Neuts % (Manual) Lymphocytes % (Manual) Monocytes % (Manual) Seg Neutrophils # Seg Neutrophils # Man Lymphocytes # (Manual) Monocytes # (Manual) Eosinophils # (Manual) Basophils # (Manual) PT INR APTT ABG pH ABG pO2 ABG HCO3 ABG O2 Saturation ABG Base Excess ABG Hemoglobin Oxyhemoglobin Sodium Potassium Chloride Carbon Dioxide BUN Creatinine Glucose POC Glucose 130 H 118 H 135 H Lactic Acid Calcium Ionized Calcium Phosphorus Magnesium Total Bilirubin AST ALT Alkaline Phosphatase Ammonia Total Creatine Kinase CK-MB (CK-2) CK-MB (CK-2) Rel Index Total Protein Albumin Urine WBC (Auto) Vancomycin Trough Salicylates Acetaminophen Plasma/Serum Alcohol Crossmatch 12/20/19 12/20/19 12/20/19 05:46 12:31 18:07 WBC RBC Hgb Hct MCH RDW Plt Count Lymph % (Auto) [place] % (Auto) [place] # Baso # Seg Neutrophils % Seg Neuts % (Manual) Lymphocytes % (Manual) Monocytes % (Manual) Seg Neutrophils # Seg Neutrophils # Man Lymphocytes # (Manual) Monocytes # (Manual) Eosinophils # (Manual) Basophils # (Manual) PT INR APTT ABG pH ABG pO2 ABG HCO3 ABG O2 Saturation ABG Base Excess ABG Hemoglobin Oxyhemoglobin Sodium Potassium Chloride Carbon Dioxide BUN Creatinine Glucose POC Glucose 131 H 128 H 134 H Lactic Acid Calcium Ionized Calcium Phosphorus Magnesium Total Bilirubin AST ALT Alkaline Phosphatase Ammonia Total Creatine Kinase CK-MB (CK-2) CK-MB (CK-2) Rel Index Total Protein Albumin Urine WBC (Auto) Vancomycin Trough Salicylates Acetaminophen Plasma/Serum Alcohol Crossmatch 12/21/19 12/21/19 12/21/19 03:28 03:28 07:21 WBC 29.4 H RBC 2.30 L Hgb 6.8 L Hct 20.2 L MCH RDW 20.2 H Plt Count 746 H Lymph % (Auto) [place] % (Auto) [place] # Baso # Seg Neutrophils % Seg Neuts % (Manual) 85.0 H Lymphocytes % (Manual) 8.0 L Monocytes % (Manual) Seg Neutrophils # Seg Neutrophils # Man 25.0 H Lymphocytes # (Manual) Monocytes # (Manual) 1.5 H Eosinophils # (Manual) 0.6 H Basophils # (Manual) PT INR APTT ABG pH ABG pO2 ABG HCO3 ABG O2 Saturation ABG Base Excess ABG Hemoglobin Oxyhemoglobin Sodium Potassium Chloride Carbon Dioxide 17 L BUN 57 H Creatinine 1.4 H D Glucose POC Glucose 124 H Lactic Acid Calcium Ionized Calcium Phosphorus Magnesium Total Bilirubin AST ALT Alkaline Phosphatase Ammonia Total Creatine Kinase CK-MB (CK-2) CK-MB (CK-2) Rel Index Total Protein Albumin Urine WBC (Auto) Vancomycin Trough Salicylates Acetaminophen Plasma/Serum Alcohol Crossmatch 12/21/19 12/21/19 12/21/19 08:56 12:06 14:53 WBC RBC Hgb 7.2 L Hct 22.9 L MCH RDW Plt Count Lymph % (Auto) [place] % (Auto) [place] # Baso # Seg Neutrophils % Seg Neuts % (Manual) Lymphocytes % (Manual) Monocytes % (Manual) Seg Neutrophils # Seg Neutrophils # Man Lymphocytes # (Manual) Monocytes # (Manual) Eosinophils # (Manual) Basophils # (Manual) PT INR APTT ABG pH ABG pO2 ABG HCO3 ABG O2 Saturation ABG Base Excess ABG Hemoglobin Oxyhemoglobin Sodium Potassium Chloride Carbon Dioxide BUN Creatinine Glucose POC Glucose 116 H Lactic Acid Calcium Ionized Calcium Phosphorus Magnesium Total Bilirubin AST ALT Alkaline Phosphatase Ammonia Total Creatine Kinase CK-MB (CK-2) CK-MB (CK-2) Rel Index Total Protein Albumin Urine WBC (Auto) Vancomycin Trough 33.8 H Salicylates Acetaminophen Plasma/Serum Alcohol Crossmatch 12/21/19 12/21/19 12/21/19 14:54 17:27 23:49 WBC RBC Hgb Hct MCH RDW Plt Count Lymph % (Auto) [place] % (Auto) [place] # Baso # Seg Neutrophils % Seg Neuts % (Manual) Lymphocytes % (Manual) Monocytes % (Manual) Seg Neutrophils # Seg Neutrophils # Man Lymphocytes # (Manual) Monocytes # (Manual) Eosinophils # (Manual) Basophils # (Manual) PT INR APTT ABG pH ABG pO2 ABG HCO3 ABG O2 Saturation ABG Base Excess ABG Hemoglobin Oxyhemoglobin Sodium Potassium Chloride Carbon Dioxide BUN Creatinine Glucose POC Glucose 145 H 127 H Lactic Acid Calcium Ionized Calcium Phosphorus Magnesium Total Bilirubin AST ALT Alkaline Phosphatase Ammonia Total Creatine Kinase CK-MB (CK-2) CK-MB (CK-2) Rel Index Total Protein Albumin Urine WBC (Auto) Vancomycin Trough Salicylates Acetaminophen Plasma/Serum Alcohol Crossmatch See Detail 12/22/19 12/22/19 12/22/19 04:43 05:56 08:40 WBC RBC Hgb Hct MCH RDW Plt Count Lymph % (Auto) [place] % (Auto) [place] # Baso # Seg Neutrophils % Seg Neuts % (Manual) Lymphocytes % (Manual) Monocytes % (Manual) Seg Neutrophils # Seg Neutrophils # Man Lymphocytes # (Manual) Monocytes # (Manual) Eosinophils # (Manual) Basophils # (Manual) PT INR APTT ABG pH ABG pO2 75.6 L ABG HCO3 ABG O2 Saturation ABG Base Excess -2.6 L ABG Hemoglobin 6.8 L Oxyhemoglobin 94.6 L Sodium Potassium Chloride Carbon Dioxide 17 L BUN 60 H Creatinine 1.4 H Glucose 126 H POC Glucose 153 H Lactic Acid Calcium Ionized Calcium Phosphorus Magnesium Total Bilirubin AST ALT Alkaline Phosphatase Ammonia Total Creatine Kinase CK-MB (CK-2) CK-MB (CK-2) Rel Index Total Protein Albumin Urine WBC (Auto) Vancomycin Trough Salicylates Acetaminophen Plasma/Serum Alcohol Crossmatch 12/22/19 12/22/19 12/23/19 12:07 17:49 04:30 WBC 22.4 H RBC 2.68 L Hgb 7.6 L Hct 22.9 L MCH RDW 19.9 H Plt Count 998 H Lymph % (Auto) [place] % (Auto) [place] # Baso # Seg Neutrophils % Seg Neuts % (Manual) 88.0 H Lymphocytes % (Manual) 2.0 L Monocytes % (Manual) 9.0 H Seg Neutrophils # Seg Neutrophils # Man 19.7 H Lymphocytes # (Manual) 0.4 L Monocytes # (Manual) 2.0 H Eosinophils # (Manual) Basophils # (Manual) PT INR APTT ABG pH ABG pO2 ABG HCO3 ABG O2 Saturation ABG Base Excess ABG Hemoglobin Oxyhemoglobin Sodium Potassium Chloride Carbon Dioxide BUN Creatinine Glucose POC Glucose 140 H 116 H Lactic Acid Calcium Ionized Calcium Phosphorus Magnesium Total Bilirubin AST ALT Alkaline Phosphatase Ammonia Total Creatine Kinase CK-MB (CK-2) CK-MB (CK-2) Rel Index Total Protein Albumin Urine WBC (Auto) Vancomycin Trough Salicylates Acetaminophen Plasma/Serum Alcohol Crossmatch 12/23/19 12/23/19 12/23/19 04:30 12:00 18:06 WBC RBC Hgb Hct MCH RDW Plt Count Lymph % (Auto) [place] % (Auto) [place] # Baso # Seg Neutrophils % Seg Neuts % (Manual) Lymphocytes % (Manual) Monocytes % (Manual) Seg Neutrophils # Seg Neutrophils # Man Lymphocytes # (Manual) Monocytes # (Manual) Eosinophils # (Manual) Basophils # (Manual) PT INR APTT ABG pH ABG pO2 ABG HCO3 ABG O2 Saturation ABG Base Excess ABG Hemoglobin Oxyhemoglobin Sodium Potassium 5.2 H Chloride Carbon Dioxide 21 L BUN 69 H Creatinine 1.5 H Glucose 117 H POC Glucose 128 H 138 H Lactic Acid Calcium Ionized Calcium Phosphorus Magnesium Total Bilirubin AST ALT Alkaline Phosphatase Ammonia Total Creatine Kinase CK-MB (CK-2) CK-MB (CK-2) Rel Index Total Protein Albumin Urine WBC (Auto) Vancomycin Trough Salicylates Acetaminophen Plasma/Serum Alcohol Crossmatch 12/23/19 12/24/19 12/24/19 23:46 04:31 05:08 WBC RBC Hgb Hct MCH RDW Plt Count Lymph % (Auto) [place] % (Auto) [place] # Baso # Seg Neutrophils % Seg Neuts % (Manual) Lymphocytes % (Manual) Monocytes % (Manual) Seg Neutrophils # Seg Neutrophils # Man Lymphocytes # (Manual) Monocytes # (Manual) Eosinophils # (Manual) Basophils # (Manual) PT INR APTT ABG pH ABG pO2 ABG HCO3 ABG O2 Saturation ABG Base Excess ABG Hemoglobin Oxyhemoglobin Sodium Potassium 5.3 H Chloride 107.6 H Carbon Dioxide 20 L BUN 72 H Creatinine 1.6 H Glucose 120 H POC Glucose 120 H 140 H Lactic Acid Calcium Ionized Calcium Phosphorus Magnesium Total Bilirubin AST ALT Alkaline Phosphatase Ammonia Total Creatine Kinase CK-MB (CK-2) CK-MB (CK-2) Rel Index Total Protein Albumin Urine WBC (Auto) Vancomycin Trough Salicylates Acetaminophen Plasma/Serum Alcohol Crossmatch 12/24/19 12/24/19 12/25/19 11:58 17:49 03:47 WBC 36.2 H RBC 2.92 L Hgb 8.4 L Hct 26.1 L MCH RDW 20.2 H Plt Count 942 H Lymph % (Auto) [place] % (Auto) [place] # Baso # Seg Neutrophils % Seg Neuts % (Manual) 97.5 H Lymphocytes % (Manual) 1.0 L Monocytes % (Manual) Seg Neutrophils # Seg Neutrophils # Man 35.3 H Lymphocytes # (Manual) 0.4 L Monocytes # (Manual) Eosinophils # (Manual) Basophils # (Manual) PT INR APTT ABG pH ABG pO2 ABG HCO3 ABG O2 Saturation ABG Base Excess ABG Hemoglobin Oxyhemoglobin Sodium Potassium Chloride Carbon Dioxide BUN Creatinine Glucose POC Glucose 146 H 131 H Lactic Acid Calcium Ionized Calcium Phosphorus Magnesium Total Bilirubin AST ALT Alkaline Phosphatase Ammonia Total Creatine Kinase CK-MB (CK-2) CK-MB (CK-2) Rel Index Total Protein Albumin Urine WBC (Auto) Vancomycin Trough Salicylates Acetaminophen Plasma/Serum Alcohol Crossmatch 12/25/19 12/25/19 12/25/19 03:47 05:30 12:23 WBC RBC Hgb Hct MCH RDW Plt Count Lymph % (Auto) [place] % (Auto) [place] # Baso # Seg Neutrophils % Seg Neuts % (Manual) Lymphocytes % (Manual) Monocytes % (Manual) Seg Neutrophils # Seg Neutrophils # Man Lymphocytes # (Manual) Monocytes # (Manual) Eosinophils # (Manual) Basophils # (Manual) PT INR APTT ABG pH ABG pO2 ABG HCO3 ABG O2 Saturation ABG Base Excess ABG Hemoglobin Oxyhemoglobin Sodium Potassium Chloride Carbon Dioxide 15 L BUN 70 H Creatinine 1.7 H Glucose 153 H POC Glucose 169 H 135 H Lactic Acid Calcium Ionized Calcium Phosphorus Magnesium Total Bilirubin AST ALT Alkaline Phosphatase Ammonia Total Creatine Kinase CK-MB (CK-2) CK-MB (CK-2) Rel Index Total Protein Albumin Urine WBC (Auto) Vancomycin Trough Salicylates Acetaminophen Plasma/Serum Alcohol Crossmatch 12/25/19 12/25/19 12/26/19 17:37 23:29 09:47 WBC 22.1 H RBC 2.83 L Hgb 7.9 L Hct 25.5 L MCH RDW 20.0 H Plt Count 894 H Lymph % (Auto) [place] % (Auto) [place] # Baso # Seg Neutrophils % Seg Neuts % (Manual) Lymphocytes % (Manual) Monocytes % (Manual) Seg Neutrophils # Seg Neutrophils # Man Lymphocytes # (Manual) Monocytes # (Manual) Eosinophils # (Manual) Basophils # (Manual) PT INR APTT ABG pH ABG pO2 ABG HCO3 ABG O2 Saturation ABG Base Excess ABG Hemoglobin Oxyhemoglobin Sodium Potassium Chloride Carbon Dioxide BUN Creatinine Glucose POC Glucose 120 H 140 H Lactic Acid Calcium Ionized Calcium Phosphorus Magnesium Total Bilirubin AST ALT Alkaline Phosphatase Ammonia Total Creatine Kinase CK-MB (CK-2) CK-MB (CK-2) Rel Index Total Protein Albumin Urine WBC (Auto) Vancomycin Trough Salicylates Acetaminophen Plasma/Serum Alcohol Crossmatch 12/26/19 12/26/19 12/26/19 09:47 11:46 17:52 WBC RBC Hgb Hct MCH RDW Plt Count Lymph % (Auto) [place] % (Auto) [place] # Baso # Seg Neutrophils % Seg Neuts % (Manual) Lymphocytes % (Manual) Monocytes % (Manual) Seg Neutrophils # Seg Neutrophils # Man Lymphocytes # (Manual) Monocytes # (Manual) Eosinophils # (Manual) Basophils # (Manual) PT INR APTT ABG pH ABG pO2 ABG HCO3 ABG O2 Saturation ABG Base Excess ABG Hemoglobin Oxyhemoglobin Sodium Potassium Chloride Carbon Dioxide 18 L BUN 65 H Creatinine 1.4 H Glucose 132 H POC Glucose 110 H 145 H Lactic Acid Calcium Ionized Calcium Phosphorus Magnesium Total Bilirubin AST ALT Alkaline Phosphatase Ammonia Total Creatine Kinase CK-MB (CK-2) CK-MB (CK-2) Rel Index Total Protein Albumin Urine WBC (Auto) Vancomycin Trough Salicylates Acetaminophen Plasma/Serum Alcohol Crossmatch 12/27/19 12/27/19 12/27/19 00:01 03:42 03:42 WBC 18.0 H RBC 2.86 L Hgb 8.0 L Hct 25.2 L MCH RDW 19.2 H Plt Count 873 H Lymph % (Auto) 8.4 L [place] % (Auto) 7.5 H [place] # 1.4 H Baso # 0.2 H Seg Neutrophils % 82.2 H Seg Neuts % (Manual) Lymphocytes % (Manual) Monocytes % (Manual) Seg Neutrophils # 14.8 H Seg Neutrophils # Man Lymphocytes # (Manual) Monocytes # (Manual) Eosinophils # (Manual) Basophils # (Manual) PT INR APTT ABG pH ABG pO2 ABG HCO3 ABG O2 Saturation ABG Base Excess ABG Hemoglobin Oxyhemoglobin Sodium Potassium Chloride Carbon Dioxide BUN 73 H Creatinine 1.4 H Glucose 119 H POC Glucose 124 H Lactic Acid Calcium Ionized Calcium Phosphorus Magnesium Total Bilirubin AST ALT Alkaline Phosphatase Ammonia Total Creatine Kinase CK-MB (CK-2) CK-MB (CK-2) Rel Index Total Protein Albumin Urine WBC (Auto) Vancomycin Trough Salicylates Acetaminophen Plasma/Serum Alcohol Crossmatch 12/27/19 12/27/19 12/27/19 05:45 11:45 17:29 WBC RBC Hgb Hct MCH RDW Plt Count Lymph % (Auto) [place] % (Auto) [place] # Baso # Seg Neutrophils % Seg Neuts % (Manual) Lymphocytes % (Manual) Monocytes % (Manual) Seg Neutrophils # Seg Neutrophils # Man Lymphocytes # (Manual) Monocytes # (Manual) Eosinophils # (Manual) Basophils # (Manual) PT INR APTT ABG pH ABG pO2 ABG HCO3 ABG O2 Saturation ABG Base Excess ABG Hemoglobin Oxyhemoglobin Sodium Potassium Chloride Carbon Dioxide BUN Creatinine Glucose POC Glucose 131 H 123 H 134 H Lactic Acid Calcium Ionized Calcium Phosphorus Magnesium Total Bilirubin AST ALT Alkaline Phosphatase Ammonia Total Creatine Kinase CK-MB (CK-2) CK-MB (CK-2) Rel Index Total Protein Albumin Urine WBC (Auto) Vancomycin Trough Salicylates Acetaminophen Plasma/Serum Alcohol Crossmatch 12/28/19 12/28/19 12/28/19 00:12 05:14 11:53 WBC RBC Hgb Hct MCH RDW Plt Count Lymph % (Auto) [place] % (Auto) [place] # Baso # Seg Neutrophils % Seg Neuts % (Manual) Lymphocytes % (Manual) Monocytes % (Manual) Seg Neutrophils # Seg Neutrophils # Man Lymphocytes # (Manual) Monocytes # (Manual) Eosinophils # (Manual) Basophils # (Manual) PT INR APTT ABG pH ABG pO2 ABG HCO3 ABG O2 Saturation ABG Base Excess ABG Hemoglobin Oxyhemoglobin Sodium Potassium Chloride Carbon Dioxide BUN Creatinine Glucose POC Glucose 138 H 130 H 146 H Lactic Acid Calcium Ionized Calcium Phosphorus Magnesium Total Bilirubin AST ALT Alkaline Phosphatase Ammonia Total Creatine Kinase CK-MB (CK-2) CK-MB (CK-2) Rel Index Total Protein Albumin Urine WBC (Auto) Vancomycin Trough Salicylates Acetaminophen Plasma/Serum Alcohol Crossmatch 12/28/19 12/29/19 12/29/19 17:39 00:01 18:11 WBC RBC Hgb Hct MCH RDW Plt Count Lymph % (Auto) [place] % (Auto) [place] # Baso # Seg Neutrophils % Seg Neuts % (Manual) Lymphocytes % (Manual) Monocytes % (Manual) Seg Neutrophils # Seg Neutrophils # Man Lymphocytes # (Manual) Monocytes # (Manual) Eosinophils # (Manual) Basophils # (Manual) PT INR APTT ABG pH ABG pO2 ABG HCO3 ABG O2 Saturation ABG Base Excess ABG Hemoglobin Oxyhemoglobin Sodium Potassium Chloride Carbon Dioxide BUN Creatinine Glucose POC Glucose 117 H 139 H 130 H Lactic Acid Calcium Ionized Calcium Phosphorus Magnesium Total Bilirubin AST ALT Alkaline Phosphatase Ammonia Total Creatine Kinase CK-MB (CK-2) CK-MB (CK-2) Rel Index Total Protein Albumin Urine WBC (Auto) Vancomycin Trough Salicylates Acetaminophen Plasma/Serum Alcohol Crossmatch 12/29/19 12/30/19 12/30/19 23:09 00:02 01:06 WBC 16.7 H RBC 2.91 L Hgb 8.2 L Hct 25.4 L MCH RDW 18.7 H Plt Count 708 H Lymph % (Auto) 9.4 L [place] % (Auto) [place] # 0.9 H Baso # Seg Neutrophils % 83.5 H Seg Neuts % (Manual) Lymphocytes % (Manual) Monocytes % (Manual) Seg Neutrophils # 14.0 H Seg Neutrophils # Man Lymphocytes # (Manual) Monocytes # (Manual) Eosinophils # (Manual) Basophils # (Manual) PT INR APTT ABG pH ABG pO2 ABG HCO3 ABG O2 Saturation ABG Base Excess ABG Hemoglobin Oxyhemoglobin Sodium Potassium Chloride Carbon Dioxide BUN Creatinine Glucose POC Glucose 120 H 114 H Lactic Acid Calcium Ionized Calcium Phosphorus Magnesium Total Bilirubin AST ALT Alkaline Phosphatase Ammonia Total Creatine Kinase CK-MB (CK-2) CK-MB (CK-2) Rel Index Total Protein Albumin Urine WBC (Auto) Vancomycin Trough Salicylates Acetaminophen Plasma/Serum Alcohol Crossmatch 12/30/19 12/30/19 12/30/19 01:06 04:23 05:18 WBC RBC Hgb Hct MCH RDW Plt Count Lymph % (Auto) [place] % (Auto) [place] # Baso # Seg Neutrophils % Seg Neuts % (Manual) Lymphocytes % (Manual) Monocytes % (Manual) Seg Neutrophils # Seg Neutrophils # Man Lymphocytes # (Manual) Monocytes # (Manual) Eosinophils # (Manual) Basophils # (Manual) PT INR APTT ABG pH ABG pO2 ABG HCO3 ABG O2 Saturation ABG Base Excess ABG Hemoglobin 8.3 L Oxyhemoglobin Sodium Potassium Chloride Carbon Dioxide BUN 70 H Creatinine Glucose 122 H POC Glucose 130 H Lactic Acid Calcium Ionized Calcium Phosphorus Magnesium Total Bilirubin AST ALT Alkaline Phosphatase Ammonia Total Creatine Kinase CK-MB (CK-2) CK-MB (CK-2) Rel Index Total Protein Albumin Urine WBC (Auto) Vancomycin Trough Salicylates Acetaminophen Plasma/Serum Alcohol Crossmatch 12/30/19 12/30/19 12/30/19 05:40 12:17 17:43 WBC RBC Hgb Hct MCH RDW Plt Count Lymph % (Auto) [place] % (Auto) [place] # Baso # Seg Neutrophils % Seg Neuts % (Manual) Lymphocytes % (Manual) Monocytes % (Manual) Seg Neutrophils # Seg Neutrophils # Man Lymphocytes # (Manual) Monocytes # (Manual) Eosinophils # (Manual) Basophils # (Manual) PT INR APTT ABG pH ABG pO2 ABG HCO3 ABG O2 Saturation ABG Base Excess ABG Hemoglobin Oxyhemoglobin Sodium Potassium Chloride Carbon Dioxide BUN Creatinine Glucose POC Glucose 135 H 132 H 118 H Lactic Acid Calcium Ionized Calcium Phosphorus Magnesium Total Bilirubin AST ALT Alkaline Phosphatase Ammonia Total Creatine Kinase CK-MB (CK-2) CK-MB (CK-2) Rel Index Total Protein Albumin Urine WBC (Auto) Vancomycin Trough Salicylates Acetaminophen Plasma/Serum Alcohol Crossmatch 12/30/19 12/31/19 12/31/19 23:29 05:19 17:50 WBC RBC Hgb Hct MCH RDW Plt Count Lymph % (Auto) [place] % (Auto) [place] # Baso # Seg Neutrophils % Seg Neuts % (Manual) Lymphocytes % (Manual) Monocytes % (Manual) Seg Neutrophils # Seg Neutrophils # Man Lymphocytes # (Manual) Monocytes # (Manual) Eosinophils # (Manual) Basophils # (Manual) PT INR APTT ABG pH ABG pO2 ABG HCO3 ABG O2 Saturation ABG Base Excess ABG Hemoglobin Oxyhemoglobin Sodium Potassium Chloride Carbon Dioxide BUN Creatinine Glucose POC Glucose 114 H 109 H 116 H Lactic Acid Calcium Ionized Calcium Phosphorus Magnesium Total Bilirubin AST ALT Alkaline Phosphatase Ammonia Total Creatine Kinase CK-MB (CK-2) CK-MB (CK-2) Rel Index Total Protein Albumin Urine WBC (Auto) Vancomycin Trough Salicylates Acetaminophen Plasma/Serum Alcohol Crossmatch 01/01/20 01/01/20 01/01/20 00:10 05:19 12:02 WBC RBC Hgb Hct MCH RDW Plt Count Lymph % (Auto) [place] % (Auto) [place] # Baso # Seg Neutrophils % Seg Neuts % (Manual) Lymphocytes % (Manual) Monocytes % (Manual) Seg Neutrophils # Seg Neutrophils # Man Lymphocytes # (Manual) Monocytes # (Manual) Eosinophils # (Manual) Basophils # (Manual) PT INR APTT ABG pH ABG pO2 ABG HCO3 ABG O2 Saturation ABG Base Excess ABG Hemoglobin Oxyhemoglobin Sodium Potassium Chloride Carbon Dioxide BUN Creatinine Glucose POC Glucose 131 H 122 H 136 H Lactic Acid Calcium Ionized Calcium Phosphorus Magnesium Total Bilirubin AST ALT Alkaline Phosphatase Ammonia Total Creatine Kinase CK-MB (CK-2) CK-MB (CK-2) Rel Index Total Protein Albumin Urine WBC (Auto) Vancomycin Trough Salicylates Acetaminophen Plasma/Serum Alcohol Crossmatch 01/02/20 01/02/20 01/02/20 00:24 05:36 11:41 WBC RBC Hgb Hct MCH RDW Plt Count Lymph % (Auto) [place] % (Auto) [place] # Baso # Seg Neutrophils % Seg Neuts % (Manual) Lymphocytes % (Manual) Monocytes % (Manual) Seg Neutrophils # Seg Neutrophils # Man Lymphocytes # (Manual) Monocytes # (Manual) Eosinophils # (Manual) Basophils # (Manual) PT INR APTT ABG pH ABG pO2 ABG HCO3 ABG O2 Saturation ABG Base Excess ABG Hemoglobin Oxyhemoglobin Sodium Potassium Chloride Carbon Dioxide BUN Creatinine Glucose POC Glucose 119 H 109 H 125 H Lactic Acid Calcium Ionized Calcium Phosphorus Magnesium Total Bilirubin AST ALT Alkaline Phosphatase Ammonia Total Creatine Kinase CK-MB (CK-2) CK-MB (CK-2) Rel Index Total Protein Albumin Urine WBC (Auto) Vancomycin Trough Salicylates Acetaminophen Plasma/Serum Alcohol Crossmatch 01/02/20 01/03/20 01/03/20 17:49 05:29 12:13 WBC RBC Hgb Hct MCH RDW Plt Count Lymph % (Auto) [place] % (Auto) [place] # Baso # Seg Neutrophils % Seg Neuts % (Manual) Lymphocytes % (Manual) Monocytes % (Manual) Seg Neutrophils # Seg Neutrophils # Man Lymphocytes # (Manual) Monocytes # (Manual) Eosinophils # (Manual) Basophils # (Manual) PT INR APTT ABG pH ABG pO2 ABG HCO3 ABG O2 Saturation ABG Base Excess ABG Hemoglobin Oxyhemoglobin Sodium Potassium Chloride Carbon Dioxide BUN Creatinine Glucose POC Glucose 130 H 132 H 113 H Lactic Acid Calcium Ionized Calcium Phosphorus Magnesium Total Bilirubin AST ALT Alkaline Phosphatase Ammonia Total Creatine Kinase CK-MB (CK-2) CK-MB (CK-2) Rel Index Total Protein Albumin Urine WBC (Auto) Vancomycin Trough Salicylates Acetaminophen Plasma/Serum Alcohol Crossmatch 01/03/20 01/04/20 01/04/20 17:32 00:19 05:26 WBC RBC Hgb Hct MCH RDW Plt Count Lymph % (Auto) [place] % (Auto) [place] # Baso # Seg Neutrophils % Seg Neuts % (Manual) Lymphocytes % (Manual) Monocytes % (Manual) Seg Neutrophils # Seg Neutrophils # Man Lymphocytes # (Manual) Monocytes # (Manual) Eosinophils # (Manual) Basophils # (Manual) PT INR APTT ABG pH ABG pO2 ABG HCO3 ABG O2 Saturation ABG Base Excess ABG Hemoglobin Oxyhemoglobin Sodium Potassium Chloride Carbon Dioxide BUN Creatinine Glucose POC Glucose 127 H 141 H 129 H Lactic Acid Calcium Ionized Calcium Phosphorus Magnesium Total Bilirubin AST ALT Alkaline Phosphatase Ammonia Total Creatine Kinase CK-MB (CK-2) CK-MB (CK-2) Rel Index Total Protein Albumin Urine WBC (Auto) Vancomycin Trough Salicylates Acetaminophen Plasma/Serum Alcohol Crossmatch 01/04/20 01/04/20 01/05/20 11:39 17:29 05:22 WBC RBC Hgb Hct MCH RDW Plt Count Lymph % (Auto) [place] % (Auto) [place] # Baso # Seg Neutrophils % Seg Neuts % (Manual) Lymphocytes % (Manual) Monocytes % (Manual) Seg Neutrophils # Seg Neutrophils # Man Lymphocytes # (Manual) Monocytes # (Manual) Eosinophils # (Manual) Basophils # (Manual) PT INR APTT ABG pH ABG pO2 ABG HCO3 ABG O2 Saturation ABG Base Excess ABG Hemoglobin Oxyhemoglobin Sodium Potassium Chloride Carbon Dioxide BUN Creatinine Glucose POC Glucose 167 H 132 H 121 H Lactic Acid Calcium Ionized Calcium Phosphorus Magnesium Total Bilirubin AST ALT Alkaline Phosphatase Ammonia Total Creatine Kinase CK-MB (CK-2) CK-MB (CK-2) Rel Index Total Protein Albumin Urine WBC (Auto) Vancomycin Trough Salicylates Acetaminophen Plasma/Serum Alcohol Crossmatch 01/05/20 01/05/20 01/05/20 12:25 17:40 18:06 WBC RBC Hgb Hct MCH RDW Plt Count Lymph % (Auto) [place] % (Auto) [place] # Baso # Seg Neutrophils % Seg Neuts % (Manual) Lymphocytes % (Manual) Monocytes % (Manual) Seg Neutrophils # Seg Neutrophils # Man Lymphocytes # (Manual) Monocytes # (Manual) Eosinophils # (Manual) Basophils # (Manual) PT INR APTT ABG pH 7.472 H ABG pO2 99.2 H ABG HCO3 ABG O2 Saturation ABG Base Excess ABG Hemoglobin 7.8 L Oxyhemoglobin Sodium Potassium Chloride Carbon Dioxide BUN Creatinine Glucose POC Glucose 106 H 110 H Lactic Acid Calcium Ionized Calcium Phosphorus Magnesium Total Bilirubin AST ALT Alkaline Phosphatase Ammonia Total Creatine Kinase CK-MB (CK-2) CK-MB (CK-2) Rel Index Total Protein Albumin Urine WBC (Auto) Vancomycin Trough Salicylates Acetaminophen Plasma/Serum Alcohol Crossmatch 01/06/20 01/06/20 01/06/20 00:11 05:16 11:30 WBC RBC Hgb Hct MCH RDW Plt Count Lymph % (Auto) [place] % (Auto) [place] # Baso # Seg Neutrophils % Seg Neuts % (Manual) Lymphocytes % (Manual) Monocytes % (Manual) Seg Neutrophils # Seg Neutrophils # Man Lymphocytes # (Manual) Monocytes # (Manual) Eosinophils # (Manual) Basophils # (Manual) PT INR APTT ABG pH ABG pO2 ABG HCO3 ABG O2 Saturation ABG Base Excess ABG Hemoglobin Oxyhemoglobin Sodium Potassium Chloride Carbon Dioxide BUN Creatinine Glucose POC Glucose 108 H 124 H 125 H Lactic Acid Calcium Ionized Calcium Phosphorus Magnesium Total Bilirubin AST ALT Alkaline Phosphatase Ammonia Total Creatine Kinase CK-MB (CK-2) CK-MB (CK-2) Rel Index Total Protein Albumin Urine WBC (Auto) Vancomycin Trough Salicylates Acetaminophen Plasma/Serum Alcohol Crossmatch 01/06/20 01/06/20 01/07/20 17:53 23:51 04:12 WBC 16.5 H RBC 3.29 L Hgb 9.3 L Hct 28.1 L MCH RDW 18.2 H Plt Count 526 H Lymph % (Auto) 8.4 L [place] % (Auto) [place] # 1.0 H Baso # Seg Neutrophils % 84.4 H Seg Neuts % (Manual) Lymphocytes % (Manual) Monocytes % (Manual) Seg Neutrophils # 13.9 H Seg Neutrophils # Man Lymphocytes # (Manual) Monocytes # (Manual) Eosinophils # (Manual) Basophils # (Manual) PT INR APTT ABG pH ABG pO2 ABG HCO3 ABG O2 Saturation ABG Base Excess ABG Hemoglobin Oxyhemoglobin Sodium Potassium Chloride Carbon Dioxide BUN Creatinine Glucose POC Glucose 166 H 128 H Lactic Acid Calcium Ionized Calcium Phosphorus Magnesium Total Bilirubin AST ALT Alkaline Phosphatase Ammonia Total Creatine Kinase CK-MB (CK-2) CK-MB (CK-2) Rel Index Total Protein Albumin Urine WBC (Auto) Vancomycin Trough Salicylates Acetaminophen Plasma/Serum Alcohol Crossmatch 01/07/20 01/07/20 01/07/20 04:12 04:45 11:51 WBC RBC Hgb Hct MCH RDW Plt Count Lymph % (Auto) [place] % (Auto) [place] # Baso # Seg Neutrophils % Seg Neuts % (Manual) Lymphocytes % (Manual) Monocytes % (Manual) Seg Neutrophils # Seg Neutrophils # Man Lymphocytes # (Manual) Monocytes # (Manual) Eosinophils # (Manual) Basophils # (Manual) PT INR APTT ABG pH ABG pO2 ABG HCO3 ABG O2 Saturation ABG Base Excess ABG Hemoglobin Oxyhemoglobin Sodium 136 L Potassium Chloride Carbon Dioxide 21 L BUN 44 H Creatinine 0.6 L Glucose 124 H POC Glucose 134 H 138 H Lactic Acid Calcium Ionized Calcium Phosphorus Magnesium Total Bilirubin AST ALT Alkaline Phosphatase Ammonia Total Creatine Kinase CK-MB (CK-2) CK-MB (CK-2) Rel Index Total Protein Albumin Urine WBC (Auto) Vancomycin Trough Salicylates Acetaminophen Plasma/Serum Alcohol Crossmatch 01/07/20 01/08/20 01/08/20 17:36 00:33 05:29 WBC RBC Hgb Hct MCH RDW Plt Count Lymph % (Auto) [place] % (Auto) [place] # Baso # Seg Neutrophils % Seg Neuts % (Manual) Lymphocytes % (Manual) Monocytes % (Manual) Seg Neutrophils # Seg Neutrophils # Man Lymphocytes # (Manual) Monocytes # (Manual) Eosinophils # (Manual) Basophils # (Manual) PT INR APTT ABG pH ABG pO2 ABG HCO3 ABG O2 Saturation ABG Base Excess ABG Hemoglobin Oxyhemoglobin Sodium Potassium Chloride Carbon Dioxide BUN Creatinine Glucose POC Glucose 128 H 119 H 124 H Lactic Acid Calcium Ionized Calcium Phosphorus Magnesium Total Bilirubin AST ALT Alkaline Phosphatase Ammonia Total Creatine Kinase CK-MB (CK-2) CK-MB (CK-2) Rel Index Total Protein Albumin Urine WBC (Auto) Vancomycin Trough Salicylates Acetaminophen Plasma/Serum Alcohol Crossmatch 01/08/20 01/08/20 01/08/20 12:51 20:25 23:22 WBC RBC Hgb Hct MCH RDW Plt Count Lymph % (Auto) [place] % (Auto) [place] # Baso # Seg Neutrophils % Seg Neuts % (Manual) Lymphocytes % (Manual) Monocytes % (Manual) Seg Neutrophils # Seg Neutrophils # Man Lymphocytes # (Manual) Monocytes # (Manual) Eosinophils # (Manual) Basophils # (Manual) PT INR APTT ABG pH ABG pO2 132.2 H ABG HCO3 ABG O2 Saturation ABG Base Excess ABG Hemoglobin Oxyhemoglobin Sodium Potassium Chloride Carbon Dioxide BUN Creatinine Glucose POC Glucose 128 H 127 H Lactic Acid Calcium Ionized Calcium Phosphorus Magnesium Total Bilirubin AST ALT Alkaline Phosphatase Ammonia Total Creatine Kinase CK-MB (CK-2) CK-MB (CK-2) Rel Index Total Protein Albumin Urine WBC (Auto) Vancomycin Trough Salicylates Acetaminophen Plasma/Serum Alcohol Crossmatch 01/09/20 01/09/20 01/09/20 05:48 08:51 11:29 WBC RBC Hgb Hct MCH RDW Plt Count Lymph % (Auto) [place] % (Auto) [place] # Baso # Seg Neutrophils % Seg Neuts % (Manual) Lymphocytes % (Manual) Monocytes % (Manual) Seg Neutrophils # Seg Neutrophils # Man Lymphocytes # (Manual) Monocytes # (Manual) Eosinophils # (Manual) Basophils # (Manual) PT INR APTT ABG pH ABG pO2 94.3 H ABG HCO3 ABG O2 Saturation ABG Base Excess ABG Hemoglobin 9.5 L Oxyhemoglobin Sodium Potassium Chloride Carbon Dioxide BUN Creatinine Glucose POC Glucose 120 H 112 H Lactic Acid Calcium Ionized Calcium Phosphorus Magnesium Total Bilirubin AST ALT Alkaline Phosphatase Ammonia Total Creatine Kinase CK-MB (CK-2) CK-MB (CK-2) Rel Index Total Protein Albumin Urine WBC (Auto) Vancomycin Trough Salicylates Acetaminophen Plasma/Serum Alcohol Crossmatch 01/09/20 01/10/20 01/10/20 17:57 05:17 12:28 WBC RBC Hgb Hct MCH RDW Plt Count Lymph % (Auto) [place] % (Auto) [place] # Baso # Seg Neutrophils % Seg Neuts % (Manual) Lymphocytes % (Manual) Monocytes % (Manual) Seg Neutrophils # Seg Neutrophils # Man Lymphocytes # (Manual) Monocytes # (Manual) Eosinophils # (Manual) Basophils # (Manual) PT INR APTT ABG pH ABG pO2 ABG HCO3 ABG O2 Saturation ABG Base Excess ABG Hemoglobin Oxyhemoglobin Sodium Potassium Chloride Carbon Dioxide BUN Creatinine Glucose POC Glucose 122 H 115 H 116 H Lactic Acid Calcium Ionized Calcium Phosphorus Magnesium Total Bilirubin AST ALT Alkaline Phosphatase Ammonia Total Creatine Kinase CK-MB (CK-2) CK-MB (CK-2) Rel Index Total Protein Albumin Urine WBC (Auto) Vancomycin Trough Salicylates Acetaminophen Plasma/Serum Alcohol Crossmatch 01/10/20 01/10/20 01/11/20 18:25 23:47 06:05 WBC RBC Hgb Hct MCH RDW Plt Count Lymph % (Auto) [place] % (Auto) [place] # Baso # Seg Neutrophils % Seg Neuts % (Manual) Lymphocytes % (Manual) Monocytes % (Manual) Seg Neutrophils # Seg Neutrophils # Man Lymphocytes # (Manual) Monocytes # (Manual) Eosinophils # (Manual) Basophils # (Manual) PT INR APTT ABG pH ABG pO2 ABG HCO3 ABG O2 Saturation ABG Base Excess ABG Hemoglobin Oxyhemoglobin Sodium Potassium Chloride Carbon Dioxide BUN Creatinine Glucose POC Glucose 123 H 115 H 151 H Lactic Acid Calcium Ionized Calcium Phosphorus Magnesium Total Bilirubin AST ALT Alkaline Phosphatase Ammonia Total Creatine Kinase CK-MB (CK-2) CK-MB (CK-2) Rel Index Total Protein Albumin Urine WBC (Auto) Vancomycin Trough Salicylates Acetaminophen Plasma/Serum Alcohol Crossmatch 01/11/20 01/11/20 01/11/20 07:00 07:00 12:27 WBC 11.8 H RBC 3.40 L Hgb 9.4 L Hct 29.3 L MCH RDW 18.1 H Plt Count 549 H Lymph % (Auto) [place] % (Auto) 9.1 H [place] # 1.1 H Baso # Seg Neutrophils % 73.3 H Seg Neuts % (Manual) Lymphocytes % (Manual) Monocytes % (Manual) Seg Neutrophils # 8.7 H Seg Neutrophils # Man Lymphocytes # (Manual) Monocytes # (Manual) Eosinophils # (Manual) Basophils # (Manual) PT INR APTT ABG pH ABG pO2 ABG HCO3 ABG O2 Saturation ABG Base Excess ABG Hemoglobin Oxyhemoglobin Sodium 134 L Potassium Chloride 97.7 L Carbon Dioxide 21 L BUN 38 H Creatinine 0.5 L Glucose 168 H POC Glucose 117 H Lactic Acid Calcium 10.5 H Ionized Calcium Phosphorus Magnesium Total Bilirubin AST ALT Alkaline Phosphatase Ammonia Total Creatine Kinase CK-MB (CK-2) CK-MB (CK-2) Rel Index Total Protein Albumin Urine WBC (Auto) Vancomycin Trough Salicylates Acetaminophen Plasma/Serum Alcohol Crossmatch 01/11/20 01/12/20 01/12/20 18:19 00:53 05:24 WBC RBC Hgb Hct MCH RDW Plt Count Lymph % (Auto) [place] % (Auto) [place] # Baso # Seg Neutrophils % Seg Neuts % (Manual) Lymphocytes % (Manual) Monocytes % (Manual) Seg Neutrophils # Seg Neutrophils # Man Lymphocytes # (Manual) Monocytes # (Manual) Eosinophils # (Manual) Basophils # (Manual) PT INR APTT ABG pH ABG pO2 ABG HCO3 ABG O2 Saturation ABG Base Excess ABG Hemoglobin Oxyhemoglobin Sodium Potassium Chloride Carbon Dioxide BUN Creatinine Glucose POC Glucose 126 H 126 H 128 H Lactic Acid Calcium Ionized Calcium Phosphorus Magnesium Total Bilirubin AST ALT Alkaline Phosphatase Ammonia Total Creatine Kinase CK-MB (CK-2) CK-MB (CK-2) Rel Index Total Protein Albumin Urine WBC (Auto) Vancomycin Trough Salicylates Acetaminophen Plasma/Serum Alcohol Crossmatch 01/12/20 01/12/20 01/13/20 13:39 18:02 00:27 WBC RBC Hgb Hct MCH RDW Plt Count Lymph % (Auto) [place] % (Auto) [place] # Baso # Seg Neutrophils % Seg Neuts % (Manual) Lymphocytes % (Manual) Monocytes % (Manual) Seg Neutrophils # Seg Neutrophils # Man Lymphocytes # (Manual) Monocytes # (Manual) Eosinophils # (Manual) Basophils # (Manual) PT INR APTT ABG pH ABG pO2 ABG HCO3 ABG O2 Saturation ABG Base Excess ABG Hemoglobin Oxyhemoglobin Sodium Potassium Chloride Carbon Dioxide BUN Creatinine Glucose POC Glucose 146 H 125 H 131 H Lactic Acid Calcium Ionized Calcium Phosphorus Magnesium Total Bilirubin AST ALT Alkaline Phosphatase Ammonia Total Creatine Kinase CK-MB (CK-2) CK-MB (CK-2) Rel Index Total Protein Albumin Urine WBC (Auto) Vancomycin Trough Salicylates Acetaminophen Plasma/Serum Alcohol Crossmatch 01/13/20 01/13/20 01/13/20 05:44 11:54 17:18 WBC RBC Hgb Hct MCH RDW Plt Count Lymph % (Auto) [place] % (Auto) [place] # Baso # Seg Neutrophils % Seg Neuts % (Manual) Lymphocytes % (Manual) Monocytes % (Manual) Seg Neutrophils # Seg Neutrophils # Man Lymphocytes # (Manual) Monocytes # (Manual) Eosinophils # (Manual) Basophils # (Manual) PT INR APTT ABG pH ABG pO2 ABG HCO3 ABG O2 Saturation ABG Base Excess ABG Hemoglobin Oxyhemoglobin Sodium Potassium Chloride Carbon Dioxide BUN Creatinine Glucose POC Glucose 148 H 140 H 130 H Lactic Acid Calcium Ionized Calcium Phosphorus Magnesium Total Bilirubin AST ALT Alkaline Phosphatase Ammonia Total Creatine Kinase CK-MB (CK-2) CK-MB (CK-2) Rel Index Total Protein Albumin Urine WBC (Auto) Vancomycin Trough Salicylates Acetaminophen Plasma/Serum Alcohol Crossmatch 01/14/20 01/14/20 01/14/20 00:16 05:45 12:19 WBC RBC Hgb Hct MCH RDW Plt Count Lymph % (Auto) [place] % (Auto) [place] # Baso # Seg Neutrophils % Seg Neuts % (Manual) Lymphocytes % (Manual) Monocytes % (Manual) Seg Neutrophils # Seg Neutrophils # Man Lymphocytes # (Manual) Monocytes # (Manual) Eosinophils # (Manual) Basophils # (Manual) PT INR APTT ABG pH ABG pO2 ABG HCO3 ABG O2 Saturation ABG Base Excess ABG Hemoglobin Oxyhemoglobin Sodium Potassium Chloride Carbon Dioxide BUN Creatinine Glucose POC Glucose 125 H 146 H 147 H Lactic Acid Calcium Ionized Calcium Phosphorus Magnesium Total Bilirubin AST ALT Alkaline Phosphatase Ammonia Total Creatine Kinase CK-MB (CK-2) CK-MB (CK-2) Rel Index Total Protein Albumin Urine WBC (Auto) Vancomycin Trough Salicylates Acetaminophen Plasma/Serum Alcohol Crossmatch Allied health notes reviewed: nursing
--- NOTE | 2020-01-14 18:40 | Progress Note ---
Assessment and Plan Assessment and plan: -Acute Respiratory failure Vent dependent, s/p trach and PEG on 12/12 on T-piece CTA chest negative for PE, , Echo diastolic dysfunction --Anoxic brain injury: suspected CT head: No acute abnormality. neurology consult placed, EEG ordered showed Generalized slowing. No seizures or epileptiform activity. Per neurology : Patient found to have intact corneal/VOR/cough reflexes, and is withdrawing lower extremities, therefore patient is not found to be brain . However, given that patient had an out of hospital cardiac arrest, the time of which is uncertain, the likelihood of meaningful neurological recovery is somewhat low. Patient now opening her eyes and able to follow any command by nodding head --Anemia, microcytic Status post 3 units PRBC transfusion, H&H low stable --Acute metabolic encephalopathy/toxic encephalopathy stable --Hyperammonemia -resolved --Metabolic Acidosis: Improved --Transaminitis; resolved --Leucocytosis with sepsis Source MRSA bacteremia and MSSA pneumonia. UA showed pyuria. RUQ US showed no ascites. Repeat TTE negative for vegetation. Completed 7 days of Ceftriaxone on 11/29/2019. Treated with Abx vancomycin 1 gm IV q 12 hour total 2 week till 12/30/2019 --MSSA pneumonia: Status post vancomycin till 12/30/2019 --ALcohol USe Disorder; Supportive care --Seizure disorder: Seizure precautions , continue Keppra --H. Influenzae, tracheobronchitis, treated with abx --DNR CODE STATUS --Discharge planning ; social and financial issues Case management assisting poor prognosis 12/31/19: still intubated via trach, no restraints needed, FiO2 30%, PEEP 6, Difficulty getting to Hospice, mother wants to kept updated. Patient has 4 kids, 2 sons in detention, 1 son is transgender and not involved per mother; Daughter is Deborah who is NOK 01/01/20: Still intubated, but patient opening her eyes but does not follow any command. Unable to set up inpatient hospice 01/01 pending placement, patient is self funded 01/02 pending placement, patient is self funded 01/03 pending placement, patient is self funded. still on vent. updated patient's mother 01/04 pending placement, patient is self funded. still on vent. 01/05 pending placement, patient is tolerating T-piece trial today -off vent. 01/06 patient getting T-piece trial daily, need placement. Patient is unfunded 01/08: Pt opened for 24 hours and tolerating T-piece with 8 L O2. Patient is unfunded and unable to find a placement. Family is refusing to accept the patient at home with home hospice. 01/09: daytime T-piece trials as tolerated and continue to rest on AC for now. pending placement 01/10; remains on ventilatory support DNR, for placement 01/11: Clinically stable, tracheostomy on T-piece, DC planning / placement 01/12: Clinically no change, awaiting placement 01/13: Tracheostomy on T-piece, stable, pending placement The high probability of a clinically significant, sudden or life threatening deterioration of the [neurology,respiratory] system(s) required my full and direct attention, intervention and personal management. The aggregate critical care time was [31] minutes. This time is in addition to time spent performing reported procedures but includes the following: [x] Data Review and interpretation [x] Patient assessment and monitoring of vital signs [x] Documentation [x] Medication orders and management Disposition: prognosis guarded. Family okay for DNR, placement pending History Interval history: Patient seen and examined at bedside this morning in [facility] Patient's chart and medications reviewed Patient status post tracheostomy on T-piece In mild distress Vital signs reviewed No new overnight events reported by the nursing Hospitalist Physical - Constitutional Vitals: Temp Pulse Resp BP Pulse Ox 99.1 F 116 H 26 H 125/83 100 01/14/20 16:00 01/14/20 18:00 01/14/20 18:00 01/14/20 18:00 01/14/20 18:00 General appearance: Present: mild distress, cachectic, disheveled, other (Tracheostomy on T-piece) - EENT Eyes: Present: PERRL, EOM intact - Neck Neck: Present: supple, normal ROM, other (Tracheostomy T-piece) - Respiratory Respiratory effort: normal Respiratory: bilateral: diminished, rhonchi, negative: rales, wheezing - Cardiovascular Rhythm: regular Heart Sounds: Present: S1 & S2 - Extremities Extremities: no ischemia Extremity abnormal: edema - Abdominal General gastrointestinal: soft, non-tender, non-distended, normal bowel sounds - Integumentary Integumentary: Present: clear, warm - Psychiatric Psychiatric: other (Noncommunicative) - Neurologic Neurologic: other (Noncommunicative) Results - Labs CBC & Chem 7: 01/11/20 07:00 01/11/20 07:00 Labs: Laboratory Last Values WBC 11.8 K/mm3 (4.5-11.0) H 01/11/20 07:00 RBC 3.40 M/mm3 (3.65-5.03) L 01/11/20 07:00 Hgb 9.4 gm/dl (10.1-14.3) L 01/11/20 07:00 Hct 29.3 % (30.3-42.9) L 01/11/20 07:00 MCV 86 fl (79-97) 01/11/20 07:00 MCH 28 pg (28-32) 01/11/20 07:00 MCHC 32 % (30-34) 01/11/20 07:00 RDW 18.1 % (13.2-15.2) H 01/11/20 07:00 Plt Count 549 K/mm3 (140-440) H 01/11/20 07:00 Lymph % (Auto) 14.8 % (13.4-35.0) 01/11/20 07:00 [place] % (Auto) 9.1 % (0.0-7.3) H 01/11/20 07:00 Eos % (Auto) 2.1 % (0.0-4.3) 01/11/20 07:00 Baso % (Auto) 0.7 % (0.0-1.8) 01/11/20 07:00 Lymph # 1.8 K/mm3 (1.2-5.4) 01/11/20 07:00 [place] # 1.1 K/mm3 (0.0-0.8) H 01/11/20 07:00 Eos # 0.2 K/mm3 (0.0-0.4) 01/11/20 07:00 Baso # 0.1 K/mm3 (0.0-0.1) 01/11/20 07:00 Add Manual Diff Complete 12/25/19 03:47 Total Counted 200 12/25/19 03:47 Seg Neutrophils % 73.3 % (40.0-70.0) H 01/11/20 07:00 Seg Neuts % (Manual) 97.5 % (40.0-70.0) H 12/25/19 03:47 Band Neutrophils % 0 % 12/25/19 03:47 Lymphocytes % (Manual) 1.0 % (13.4-35.0) L 12/25/19 03:47 Reactive Lymphs % (Man) 0 % 12/25/19 03:47 Monocytes % (Manual) 1.5 % (0.0-7.3) 12/25/19 03:47 Eosinophils % (Manual) 0 % (0.0-4.3) 12/25/19 03:47 Basophils % (Manual) 0 % (0.0-1.8) 12/25/19 03:47 Metamyelocytes % 0 % 12/25/19 03:47 Myelocytes % 0 % 12/25/19 03:47 Promyelocytes % 0 % 12/25/19 03:47 Blast Cells % 0 % 12/25/19 03:47 Nucleated RBC % Not Reportable 12/25/19 03:47 Seg Neutrophils # 8.7 K/mm3 (1.8-7.7) H 01/11/20 07:00 Seg Neutrophils # Man 35.3 K/mm3 (1.8-7.7) H 12/25/19 03:47 Band Neutrophils # 0.0 K/mm3 12/25/19 03:47 Lymphocytes # (Manual) 0.4 K/mm3 (1.2-5.4) L 12/25/19 03:47 Abs React Lymphs (Man) 0.0 K/mm3 12/25/19 03:47 Monocytes # (Manual) 0.5 K/mm3 (0.0-0.8) 12/25/19 03:47 Eosinophils # (Manual) 0.0 K/mm3 (0.0-0.4) 12/25/19 03:47 Basophils # (Manual) 0.0 K/mm3 (0.0-0.1) 12/25/19 03:47 Metamyelocytes # 0.0 K/mm3 12/25/19 03:47 Myelocytes # 0.0 K/mm3 12/25/19 03:47 Promyelocytes # 0.0 K/mm3 12/25/19 03:47 Blast Cells # 0.0 K/mm3 12/25/19 03:47 Pathologist Review 12/13/19 07:48 WBC Morphology Not Reportable 12/25/19 03:47 Hypersegmented Neuts Not Reportable 12/25/19 03:47 Hyposegmented Neuts Not Reportable 12/25/19 03:47 Hypogranular Neuts Not Reportable 12/25/19 03:47 Smudge Cells Not Reportable 12/25/19 03:47 Toxic Granulation Not Reportable 12/25/19 03:47 Toxic Vacuolation Not Reportable 12/25/19 03:47 Dohle Bodies Not Reportable 12/25/19 03:47 Pelger-Huet Anomaly Not Reportable 12/25/19 03:47 Dominique Rods Not Reportable 12/25/19 03:47 Platelet Estimate Consistent w auto 12/25/19 03:47 Clumped Platelets Not Reportable 12/25/19 03:47 Plt Clumps, EDTA Not Reportable 12/25/19 03:47 Large Platelets Not Reportable 12/25/19 03:47 Giant Platelets Not Reportable 12/25/19 03:47 Platelet Satelliting Not Reportable 12/25/19 03:47 Plt Morphology Comment Not Reportable 12/25/19 03:47 RBC Morphology Not Reportable 12/25/19 03:47 Dimorphic RBCs Not Reportable 12/25/19 03:47 Polychromasia Not Reportable 12/25/19 03:47 Hypochromasia Not Reportable 12/25/19 03:47 Poikilocytosis Not Reportable 12/25/19 03:47 Anisocytosis 1+ 12/25/19 03:47 Microcytosis Not Reportable 12/25/19 03:47 Macrocytosis Not Reportable 12/25/19 03:47 Spherocytes Not Reportable 12/25/19 03:47 Pappenheimer Bodies Not Reportable 12/25/19 03:47 Sickle Cells Not Reportable 12/25/19 03:47 Target Cells Not Reportable 12/25/19 03:47 Tear Drop Cells Not Reportable 12/25/19 03:47 Ovalocytes Not Reportable 12/25/19 03:47 Helmet Cells Not Reportable 12/25/19 03:47 [place] Bodies Not Reportable 12/25/19 03:47 [place] Rings Not Reportable 12/25/19 03:47 [place] Cells Not Reportable 12/25/19 03:47 Bite Cells Not Reportable 12/25/19 03:47 Crenated Cell Not Reportable 12/25/19 03:47 Elliptocytes Not Reportable 12/25/19 03:47 Acanthocytes (Spur) Not Reportable 12/25/19 03:47 Rouleaux Not Reportable 12/25/19 03:47 Hemoglobin C Crystals Not Reportable 12/25/19 03:47 Schistocytes Not Reportable 12/25/19 03:47 Malaria parasites Not Reportable 12/25/19 03:47 Gregg Bodies Not Reportable 12/25/19 03:47 Hem Pathologist Commnt No 12/25/19 03:47 PT 17.0 Sec. (12.2-14.9) H 11/23/19 03:47 INR 1.36 (0.87-1.13) H 11/23/19 03:47 APTT 128.2 Sec. (24.2-36.6) H* 11/23/19 03:47 Heparin Anti-Xa Level 0.31 U.I./ml (0.3-0.7) 11/23/19 09:03 ABG pH 7.429 pH Units (7.350-7.450) 01/09/20 08:51 ABG pCO2 39.1 mm Hg 01/09/20 08:51 ABG pO2 94.3 mm Hg (80.0-90.0) H 01/09/20 08:51 ABG HCO3 25.3 mmol/L (20.0-26.0) 01/09/20 08:51 ABG O2 Saturation 97.4 % (95.0-99.0) 01/09/20 08:51 ABG O2 Content 12.9 (0.0-44) 01/09/20 08:51 ABG Base Excess 1.0 mmol/L (-2.0-3.0) 01/09/20 08:51 ABG Hemoglobin 9.5 gm/dl (12.0-16.0) L 01/09/20 08:51 ABG Carboxyhemoglobin 1.3 % (0.0-5.0) 01/09/20 08:51 ABG Methemoglobin 0.4 % (0.0-1.5) 01/09/20 08:51 Oxyhemoglobin 95.7 % (95.0-99.0) 01/09/20 08:51 FiO2 35 % 01/09/20 08:51 Sodium 134 mmol/L (137-145) L 01/11/20 07:00 Potassium 4.1 mmol/L (3.6-5.0) 01/11/20 07:00 Chloride 97.7 mmol/L (98-107) L 01/11/20 07:00 Carbon Dioxide 21 mmol/L (22-30) L 01/11/20 07:00 Anion Gap 19 mmol/L 01/11/20 07:00 BUN 38 mg/dL (7-17) H 01/11/20 07:00 Creatinine 0.5 mg/dL (0.7-1.2) L 01/11/20 07:00 Estimated GFR > 60 ml/min 01/11/20 07:00 BUN/Creatinine Ratio 76 % 01/11/20 07:00 Glucose 168 mg/dL (65-100) H 01/11/20 07:00 POC Glucose 136 (70-105) H 01/14/20 18:10 Lactic Acid 1.80 mmol/L (0.7-2.0) 11/25/19 05:05 Calcium 10.5 mg/dL (8.4-10.2) H 01/11/20 07:00 Ionized Calcium 4.5 mg/dL (4.8-5.6) L 11/23/19 06:32 Phosphorus 4.20 mg/dL (2.5-4.5) D 11/28/19 08:59 Magnesium 2.30 mg/dL (1.7-2.3) 11/29/19 13:41 Total Bilirubin 0.40 mg/dL (0.1-1.2) 12/13/19 07:48 AST 27 units/L (5-40) 12/13/19 07:48 ALT 26 units/L (7-56) 12/13/19 07:48 Alkaline Phosphatase 316 units/L (35-129) H 12/13/19 07:48 Ammonia 42.0 umol/L (25-60) 11/29/19 13:41 Total Creatine Kinase 139 units/L (30-135) H 11/22/19 23:27 CK-MB (CK-2) 8.3 ng/mL (0.0-4.0) H 11/22/19 23:27 CK-MB (CK-2) Rel Index 5.9 (0-4) H 11/22/19 23:27 Troponin T < 0.010 ng/mL (0.00-0.029) 11/22/19 23:27 Total Protein 6.8 g/dL (6.3-8.2) 12/13/19 07:48 Albumin 2.4 g/dL (3.9-5) L 12/13/19 07:48 Albumin/Globulin Ratio 0.5 % 12/13/19 07:48 Lipase 18 units/L (13-60) 11/23/19 00:34 Procalcitonin 1.09 ng/mL (<0.15) 11/23/19 04:53 Urine Color Yellow (Yellow) 12/16/19 Unknown Urine Turbidity Slightly-cloudy (Clear) 12/16/19 Unknown Urine pH 5.0 (5.0-7.0) 12/16/19 Unknown Ur Specific [place] 1.018 (1.003-1.030) 12/16/19 Unknown Urine Protein 30 mg/dl mg/dL (Negative) 12/16/19 Unknown Urine Glucose (UA) Neg mg/dL (Negative) 12/16/19 Unknown Urine Ketones Neg mg/dL (Negative) 12/16/19 Unknown Urine Blood Sm (Negative) 12/16/19 Unknown Urine Nitrite Neg (Negative) 12/16/19 Unknown Urine Bilirubin Neg (Negative) 12/16/19 Unknown Urine Urobilinogen < 2.0 mg/dL (<2.0) 12/16/19 Unknown Ur Leukocyte Esterase Neg (Negative) 12/16/19 Unknown Urine WBC (Auto) 6.0 /HPF (0.0-6.0) 12/16/19 Unknown Urine RBC (Auto) 9.0 /HPF (0.0-6.0) 12/16/19 Unknown U Epithel Cells (Auto) < 1.0 /HPF (0-13.0) 12/16/19 Unknown Urine Bacteria (Auto) 2+ /HPF (Negative) 11/22/19 23:17 Hyaline Casts 3 /LPF 12/16/19 Unknown Granular Casts 3 /LPF 12/16/19 Unknown Urine Mucus Few /HPF 12/16/19 Unknown Vancomycin Trough 33.8 ug/mL (5.0-20.0) H 12/21/19 08:56 Random Vancomycin 16.2 ug/mL (0-40.0) 12/24/19 04:31 Salicylates < 0.3 mg/dL (2.8-20.0) L 11/22/19 23:27 Urine Opiates Screen Presumptive negative 11/22/19 23:17 Urine Methadone Screen Presumptive negative 11/22/19 23:17 Acetaminophen < 5.0 ug/mL (10.0-30.0) L 11/22/19 23:27 Ur Barbiturates Screen Presumptive negative 11/22/19 23:17 Ur Phencyclidine Scrn Presumptive negative 11/22/19 23:17 Ur Amphetamines Screen Presumptive negative 11/22/19 23:17 U Benzodiazepines Scrn Presumptive negative 11/22/19 23:17 Urine Cocaine Screen Presumptive negative 11/22/19 23:17 U Marijuana (THC) Screen Presumptive negative 11/22/19 23:17 Drugs of Abuse Note Disclamer 11/22/19 23:17 Plasma/Serum Alcohol 0.08 % (0-0.07) H 11/22/19 23:27 Hepatitis A IgM Ab Non-reactive (NonReactive) 11/23/19 01:19 Hep Bs Antigen Non-reactive (Negative) 11/23/19 01:19 Hep B Core IgM Ab Non-reactive (NonReactive) 11/23/19 01:19 Hepatitis C Antibody Non-reactive (NonReactive) 11/23/19 01:19 Blood Type O POSITIVE 12/21/19 14:54 Antibody Screen Negative 12/21/19 14:54 Crossmatch See Detail 12/21/19 14:54 - Diagnostic Impressions Diagnostic Impressions: Echocardiogram 11/23/19 03:58 Transthoracic Echocardiogram Indication: Cardiac arrest BP: 131/89 HR: 115 Conclusions *The study quality is technically difficult. *Global left ventricular wall motion and contractility are within normal limits. *The estimated ejection fraction is 55-60%. *Abnormal left ventricular diastolic filling is observed, consistent with impaired relaxation. *There is no pericardial effusion. Findings Procedure Info: The study quality is technically difficult. The study was technically limited due to the patient's inability to lay in the left lateral decubitus position. Left Ventricle: The left ventricular chamber size is normal. There is no left ventricular hypertrophy. Global left ventricular wall motion and contractility are within normal limits. Global left ventricular systolic function is normal. The estimated ejection fraction is 55-60%. Abnormal left ventricular diastolic filling is observed, consistent with impaired relaxation. Left Atrium: The left atrial chamber size is normal. Aortic Valve: The aortic valve leaflets are mildly thickened. Mitral Valve: The mitral valve leaflets are mildly thickened. There is no evidence of mitral regurgitation. Tricuspid Valve: The tricuspid valve leaflets are normal. There is trace tricuspid regurgitation. The right ventricular systolic pressure is calculated at 33 mmHg. Pulmonic Valve: The pulmonic valve appears normal. Pericardium: The pericardium appears normal. There is no pericardial effusion. Aorta: The aorta appears normal. Venous: The inferior vena cava appears normal in size. Measurements Chambers 2D Name Value Normal Range IVSd (2D) 0.94 cm (0.6 - 1.1) LVPWd (2D) 0.81 cm (0.6 - 1.1) LVIDd (2D) 3.6 cm (3.7 - 5.6) LVIDs (2D) 2.27 cm (2 - 3.8) LV FS (2D) 36.93 % - EF Teichholz (2D) 67.76 % - Ao root diameter (2D) 3.03 cm (2 - 3.7) Volumes/Mass Name Value Normal Range LA ESV SP 4CH (A/L) 16.89 ml - LA ESV SP 4CH (MOD) 15.52 ml - Diastolic/Systolic Function Name Value Normal Range MV E-wave Vmax 0.55 m/sec - MV deceleration time 200.89 msec - MV A-wave Vmax 0.68 m/sec - MV E:A ratio 0.82 ratio - Aortic Valve Name Value Normal Range AV Vmax 1.1 m/sec - AV VTI 15.9 cm - AV peak gradient 4.86 mmHg - AV mean gradient 2.59 mmHg - LVOT diameter 2 cm - LVOT Vmax 1.03 m/sec - LVOT VTI 15.87 cm - LVOT peak gradient 4.24 mmHg - LVOT mean gradient 2.41 mmHg - SV LVOT 49.77 ml - JOSÉ MIGUEL (continuity Vmax) 2.93 cm2 - JOSÉ MIGUEL (continuity VTI) 3.13 cm2 - Tricuspid Valve Name Value Normal Range TR Vmax 2.74 m/sec - TR peak gradient 303 mmHg - RAP 3 mmHg - RVSP 33 mmHg - IVC diameter 1.77 cm (1.2 - 2.3) Pulmonic Valve/Qp:Qs Name Value Normal Range PV Vmax 0.77 m/sec - PV peak gradient 2.4 mmHg - PV acceleration time 114.18 msec - Echocardiogram Limited Views 12/17/19 14:53 Transthoracic Echocardiogram Indication: R/O Vegetations BP: 144/83 HR: 133 Conclusions *Global left ventricular systolic function is mildly decreased. *The estimated ejection fraction is 45-50%. *A trivial pericardial effusion is visualized. Findings Left Ventricle: The left ventricular chamber size is normal. Global left ventricular systolic function is mildly decreased. The estimated ejection fraction is 45-50%. Left Atrium: The left atrial chamber size is normal. Right Ventricle: The right ventricular cavity size is normal. Right Atrium: The right atrial cavity size is normal. Aortic Valve: The aortic valve is not well visualized. There is no evidence of aortic regurgitation. Mitral Valve: The mitral valve leaflets are mildly thickened. There is trace of mitral regurgitation. Tricuspid Valve: The tricuspid valve leaflets are mildly thickened. There is trace tricuspid regurgitation. The right ventricular systolic pressure is calculated at 29 mmHg. Pulmonic Valve: The pulmonic valve is not well visualized. There is no evidence of pulmonic regurgitation. Pericardium: A trivial pericardial effusion is visualized. Aorta: There is no dilatation of the ascending aorta. There is no dilatation of the aortic root. Venous: The inferior vena cava appears normal in size. There is a greater than 50% respiratory change in the inferior vena cava dimension. Measurements Chambers 2D Name Value Normal Range IVSd (2D) 0.83 cm (0.6 - 1.1) LVPWd (2D) 0.98 cm (0.6 - 1.1) LVIDd (2D) 3.71 cm (3.7 - 5.6) LVIDs (2D) 2.93 cm (2 - 3.8) LV FS (2D) 21.12 % - EF Teichholz (2D) 43.71 % - Ao root diameter (2D) 3.02 cm (2 - 3.7) Volumes/Mass Name Value Normal Range LA ESV SP 4CH (A/L) 36.8 ml - LA ESV SP 2CH (A/L) 45.89 ml - LA ESV BP (A/L) 42.35 ml - LA ESV BP (A/L) index 26.63 ml/m2 - LA ESV SP 4CH (MOD) 34.42 ml - LA ESV SP 2CH (MOD) 44.21 ml - LA ESV BP (MOD) 39.82 ml - LA ESV BP (MOD) index 25.05 ml/m2 - Aortic Valve Name Value Normal Range LVOT diameter 1.63 cm - Tricuspid Valve Name Value Normal Range TR Vmax 2.56 m/sec - TR peak gradient 26 mmHg - RAP 3 mmHg - RVSP 29 mmHg - IVC diameter 1.83 cm (1.2 - 2.3) [place]/IV: Voiding Method Incontinent IV Catheter Type [Forearm] Peripheral IV IV Catheter Type [Left Forearm Peripheral IV ] IV Catheter Type [Right Peripheral IV Antecubital] IV Catheter Type [Right Hand] INT / Saline Lock IV Catheter Type [Right Wrist] Peripheral IV IV Catheter Type [Left Wrist] Peripheral IV IV Catheter Type [Left Peripheral IV Antecubital] IV Catheter Type [Right INT / Saline Lock Forearm] IV Catheter Type [Left Hand] Peripheral IV Active Medications - Current Medications Current Medications: Generic Name Dose Route Start Last Admin Trade Name Freq PRN Reason Stop Dose Admin Acetaminophen 650 mg 12/06/19 10:25 01/09/20 22:17 Tylenol FEEDTUBE 650 mg Q6H PRN Administration TEMP >/=100.3 Lipase/Protease/Amylase 1 each 11/23/19 11:[address] 10,500 Unit FEEDTUBE PRN PRN Use w/ sod bicarb for FT Fentanyl 50 mcg 12/05/19 02:10 12/12/19 20:04 Sublimaze IV 50 mcg Q10MIN PRN Administration ANALGESIA Glycopyrrolate 2 mg 12/31/19 20:00 01/14/20 13:03 Robinul PO 2 mg TID LUCHO Administration Hydralazine HCl 10 mg 11/24/19 00:45 12/18/19 13:25 Apresoline IV 10 mg Q6H PRN Administration SBP > 160 Hydroxyzine Pamoate 25 mg 12/06/19 10:00 01/14/20 09:49 Vistaril PO 25 mg BID LUCHO Administration Lansoprazole 30 mg 11/27/19 10:00 01/14/20 09:49 Prevacid Solutab FEEDTUBE 30 mg QDAY LUCHO Administration Levetiracetam 500 mg 11/29/19 10:00 01/14/20 09:49 Keppra PO 500 mg BID LUCHO Administration Mirtazapine 30 mg 12/06/19 10:00 01/14/20 09:49 Remeron PO 30 mg DAILY LUCHO Administration Morphine Sulfate 2 mg 12/12/19 18:40 01/12/20 21:11 Morphine IV 2 mg Q4H PRN Administration Pain, Moderate (4-6) Ondansetron HCl 4 mg 12/10/19 07:53 01/06/20 10:53 Zofran IV 4 mg Q4H PRN Administration Nausea And Vomiting Quetiapine Fumarate 100 mg 01/09/20 21:41 01/13/20 20:59 Seroquel FEEDTUBE 100 mg QHS LUCHO Administration Senna/Docusate Sodium 2 tab 12/24/19 07:00 Senokot S PO BID PRN CONSTIPATION Sertraline HCl 25 mg 01/01/20 10:00 01/14/20 09:49 Zoloft PO 25 mg QDAY LUCHO Administration Simple Syrup 15 ml 11/23/19 11:50 Simple Syrup FEEDTUBE PRN PRN Hypoglycemia BG<70 Simple Syrup 30 ml 11/23/19 11:50 Simple Syrup FEEDTUBE PRN PRN Hypoglycemia Sodium Bicarbonate 325 mg 11/23/19 11:50 Sodium Bicarbonate FEEDTUBE PRN PRN For Clogged Feeding Tube Tamsulosin HCl 0.4 mg 12/14/19 13:00 01/14/20 09:49 Flomax PO 0.4 mg QDAY LUCHO Administration Nutrition/Malnutrition Assess - Dietary Evaluation Nutrition/Malnutrition Findings: Nutrition Notes Start: 11/23/19 11:29 Freq: Status: Active Protocol: Document 01/14/20 13:05 LM (Rec: 01/14/20 13:09 LM [id number]) Nutrition Notes Initial or Follow up Reassessment Current Diagnosis Hypertension Other Pertinent Diagnosis Cardaic arrest, ETOH dependence, UTI Current Diet Jevity 1.2 at 55ml/hr Labs/Tests POC glu 146 Pertinent Medications Reviewed Height 5 ft 6 in Weight 52.7 kg [place] Body Weight (kg) 59.09 BMI 18.7 Subjective/Other Information Pt tolerating Jevity at 55ml/ hr per RN notes. Percent of energy/protein needs met: 97%/100% Burn Absent Trauma Absent GI Symptoms None Current % PO Negligible Minimum of two criteria Yes Interpretation of Weight Loss (severe) >2% in 1 week Muscle Mass Mild Depletion (non-severe) #2 Nutrition Diagnosis Malnutrition Diagnosis Progress(for reassessment Continues documentation) #1 Nutrition Diagnosis Inadequate oral intake Diagnosis Progress(for reassessment Continues documentation) Is patient on ventilator? No Is Patient Ambulatory and/or Out of Bed No REE-(Gilchrist-St. Jeor-confined to bed) 1377.048 Kcal/Kg value to use for calculation 31 Approximate Energy Requirements Using 1634 kcal/Kg Calculation Used for Recommendations Gilchrist-St Jeor Additional Notes Protein: 64-80g (1.2-1.5g/kg) Fluid: 1 ml/kcal Nutrition Intervention Change Diet Order: Continue TF Nutrition Support: Jevity 1.2 at 55ml/hr Flush 50ml q6h for hyponatremia Flush 90ml q4h once resolved Kcal 1,584 Protein (gm) 73 Fluid (mL) 1,065 Goal #1 TF tolerance Goal #2 Meet at least 80% of energy and protein needs via TF Anticipated Discharge Needs: TF Follow-Up By: 01/17/20 Additional Comments F/U for TF tolerance, Na
[2020-01-14] MEDS: QUEtiapine 100 MG TAB FEEDTUBE SCH (21:11)
[2020-01-15] MEDS: MORPHINE 2 MG/1 ML INJ IV PRN (09:26)
[2020-01-15] MEDS: SERTRALINE 50 MG TAB PO SCH (09:27)
[2020-01-15] MEDS: GLYCOPYRROLATE 1 MG TAB PO SCH ×3 (09:28→20:08)
[2020-01-15] MEDS: LANSOPRAZOLE 30 MG SOLUTAB FEEDTUBE SCH (09:28)
[2020-01-15] MEDS: TAMSULOSIN 0.4 MG CAP PO SCH (09:29)
[2020-01-15] MEDS: levETIRAcetam 500 MG/5 ML ORAL LIQD PO SCH ×2 (09:29→22:14)
[2020-01-15] MEDS: hydrOXYzine PAMOATE 25 MG CAP PO SCH ×2 (09:30→22:15)
[2020-01-15] MEDS: MIRTAZAPINE 30 MG TAB PO SCH (09:30)
--- NOTE | 2020-01-15 15:31 | Progress Note ---
Assessment and Plan Assessment and plan: --Anoxic brain injury: suspected CT head: No acute abnormality. neurology following, EEG Generalized slowing. No seizures or epileptiform activity. Neurology : Patient has intact corneal/VOR/cough reflexes, and is withdrawing lower extremities, -- Out of hospital cardiac arrest, The likelihood of meaningful neurological recovery is somewhat low. Patient awake and alert nonverbal --Acute Respiratory failure; Vent dependent, s/p trach and PEG on 12/12 on T-piece CTA chest negative for PE, , Echo diastolic dysfunction --Anemia, microcytic Status post 3 units PRBC transfusion, H&H low stable --Acute metabolic encephalopathy/toxic encephalopathy stable --Hyperammonemia -resolved --Metabolic Acidosis: Improved --Transaminitis; resolved --Leucocytosis with sepsis Source MRSA bacteremia and MSSA pneumonia. UA showed pyuria. RUQ US showed no ascites. Repeat TTE negative for vegetation. Completed 7 days of Ceftriaxone on 11/29/2019. Treated with Abx vancomycin 1 gm IV q 12 hour total 2 week till 12/30/2019 --MSSA pneumonia: Status post vancomycin till 12/30/2019 --ALcohol USe Disorder; Supportive care --Seizure disorder: Seizure precautions , continue Keppra --H. Influenzae, tracheobronchitis, treated with abx --DNR CODE STATUS --Discharge planning ; social and financial issues Case management assisting poor prognosis 12/31/19: still intubated via trach, no restraints needed, FiO2 30%, PEEP 6, Difficulty getting to Hospice, mother wants to kept updated. Patient has 4 kids, 2 sons in senior care, 1 son is transgender and not involved per mother; Daughter is Deborah who is NOK 01/01/20: Still intubated, but patient opening her eyes but does not follow any command. Unable to set up inpatient hospice 01/01 pending placement, patient is self funded 01/02 pending placement, patient is self funded 01/03 pending placement, patient is self funded. still on vent. updated patient's mother 01/04 pending placement, patient is self funded. still on vent. 01/05 pending placement, patient is tolerating T-piece trial today -off vent. 01/06 patient getting T-piece trial daily, need placement. Patient is unfunded 01/08: Pt opened for 24 hours and tolerating T-piece with 8 L O2. Patient is unfunded and unable to find a placement. Family is refusing to accept the patient at home with home hospice. 01/09: daytime T-piece trials as tolerated and continue to rest on AC for now. pending placement 01/10; remains on ventilatory support DNR, for placement 01/11: Clinically stable, tracheostomy on T-piece, DC planning / placement 01/12: Clinically no change, awaiting placement 01/13: Tracheostomy on T-piece, stable, pending placement 01/14; no change clinically, DC planning The high probability of a clinically significant, sudden or life threatening deterioration of the [neurology,respiratory] system(s) required my full and direct attention, intervention and personal management. The aggregate critical care time was [31] minutes. This time is in addition to time spent performing reported procedures but includes the following: [x] Data Review and interpretation [x] Patient assessment and monitoring of vital signs [x] Documentation [x] Medication orders and management Disposition: prognosis guarded. Family okay for DNR, placement pending History Interval history: I have seen and examined the patient at bedside this morning Patient remains noncommunicative, in mild distress Tracheostomy on T-piece Vital signs noted DC planning pending Hospitalist Physical - Constitutional Vitals: Temp Pulse Resp BP Pulse Ox 98.4 F 116 H 23 120/79 100 01/15/20 12:00 01/15/20 15:00 01/15/20 15:00 01/15/20 15:00 01/15/20 15:00 General appearance: Present: mild distress, cachectic, disheveled, other (Tracheostomy on T-piece) - EENT Eyes: Present: PERRL, EOM intact ENT: other (Tracheostomy T-piece) - Neck Neck: Present: supple, normal ROM - Respiratory Respiratory effort: normal Respiratory: bilateral: diminished, rhonchi, negative: rales, wheezing - Cardiovascular Rhythm: regular Heart Sounds: Present: S1 & S2 - Extremities Extremities: no ischemia, No edema - Abdominal General gastrointestinal: soft, non-tender, non-distended, normal bowel sounds - Integumentary Integumentary: Present: clear, warm - Psychiatric Psychiatric: other (Noncommunicative) - Neurologic Neurologic: other (Noncommunicative) Results - Labs CBC & Chem 7: 01/11/20 07:00 01/11/20 07:00 Labs: Laboratory Last Values WBC 11.8 K/mm3 (4.5-11.0) H 01/11/20 07:00 RBC 3.40 M/mm3 (3.65-5.03) L 01/11/20 07:00 Hgb 9.4 gm/dl (10.1-14.3) L 01/11/20 07:00 Hct 29.3 % (30.3-42.9) L 01/11/20 07:00 MCV 86 fl (79-97) 01/11/20 07:00 MCH 28 pg (28-32) 01/11/20 07:00 MCHC 32 % (30-34) 01/11/20 07:00 RDW 18.1 % (13.2-15.2) H 01/11/20 07:00 Plt Count 549 K/mm3 (140-440) H 01/11/20 07:00 Lymph % (Auto) 14.8 % (13.4-35.0) 01/11/20 07:00 [place] % (Auto) 9.1 % (0.0-7.3) H 01/11/20 07:00 Eos % (Auto) 2.1 % (0.0-4.3) 01/11/20 07:00 Baso % (Auto) 0.7 % (0.0-1.8) 01/11/20 07:00 Lymph # 1.8 K/mm3 (1.2-5.4) 01/11/20 07:00 [place] # 1.1 K/mm3 (0.0-0.8) H 01/11/20 07:00 Eos # 0.2 K/mm3 (0.0-0.4) 01/11/20 07:00 Baso # 0.1 K/mm3 (0.0-0.1) 01/11/20 07:00 Add Manual Diff Complete 12/25/19 03:47 Total Counted 200 12/25/19 03:47 Seg Neutrophils % 73.3 % (40.0-70.0) H 01/11/20 07:00 Seg Neuts % (Manual) 97.5 % (40.0-70.0) H 12/25/19 03:47 Band Neutrophils % 0 % 12/25/19 03:47 Lymphocytes % (Manual) 1.0 % (13.4-35.0) L 12/25/19 03:47 Reactive Lymphs % (Man) 0 % 12/25/19 03:47 Monocytes % (Manual) 1.5 % (0.0-7.3) 12/25/19 03:47 Eosinophils % (Manual) 0 % (0.0-4.3) 12/25/19 03:47 Basophils % (Manual) 0 % (0.0-1.8) 12/25/19 03:47 Metamyelocytes % 0 % 12/25/19 03:47 Myelocytes % 0 % 12/25/19 03:47 Promyelocytes % 0 % 12/25/19 03:47 Blast Cells % 0 % 12/25/19 03:47 Nucleated RBC % Not Reportable 12/25/19 03:47 Seg Neutrophils # 8.7 K/mm3 (1.8-7.7) H 01/11/20 07:00 Seg Neutrophils # Man 35.3 K/mm3 (1.8-7.7) H 12/25/19 03:47 Band Neutrophils # 0.0 K/mm3 12/25/19 03:47 Lymphocytes # (Manual) 0.4 K/mm3 (1.2-5.4) L 12/25/19 03:47 Abs React Lymphs (Man) 0.0 K/mm3 12/25/19 03:47 Monocytes # (Manual) 0.5 K/mm3 (0.0-0.8) 12/25/19 03:47 Eosinophils # (Manual) 0.0 K/mm3 (0.0-0.4) 12/25/19 03:47 Basophils # (Manual) 0.0 K/mm3 (0.0-0.1) 12/25/19 03:47 Metamyelocytes # 0.0 K/mm3 12/25/19 03:47 Myelocytes # 0.0 K/mm3 12/25/19 03:47 Promyelocytes # 0.0 K/mm3 12/25/19 03:47 Blast Cells # 0.0 K/mm3 12/25/19 03:47 Pathologist Review 12/13/19 07:48 WBC Morphology Not Reportable 12/25/19 03:47 Hypersegmented Neuts Not Reportable 12/25/19 03:47 Hyposegmented Neuts Not Reportable 12/25/19 03:47 Hypogranular Neuts Not Reportable 12/25/19 03:47 Smudge Cells Not Reportable 12/25/19 03:47 Toxic Granulation Not Reportable 12/25/19 03:47 Toxic Vacuolation Not Reportable 12/25/19 03:47 Dohle Bodies Not Reportable 12/25/19 03:47 Pelger-Huet Anomaly Not Reportable 12/25/19 03:47 Dominique Rods Not Reportable 12/25/19 03:47 Platelet Estimate Consistent w auto 12/25/19 03:47 Clumped Platelets Not Reportable 12/25/19 03:47 Plt Clumps, EDTA Not Reportable 12/25/19 03:47 Large Platelets Not Reportable 12/25/19 03:47 Giant Platelets Not Reportable 12/25/19 03:47 Platelet Satelliting Not Reportable 12/25/19 03:47 Plt Morphology Comment Not Reportable 12/25/19 03:47 RBC Morphology Not Reportable 12/25/19 03:47 Dimorphic RBCs Not Reportable 12/25/19 03:47 Polychromasia Not Reportable 12/25/19 03:47 Hypochromasia Not Reportable 12/25/19 03:47 Poikilocytosis Not Reportable 12/25/19 03:47 Anisocytosis 1+ 12/25/19 03:47 Microcytosis Not Reportable 12/25/19 03:47 Macrocytosis Not Reportable 12/25/19 03:47 Spherocytes Not Reportable 12/25/19 03:47 Pappenheimer Bodies Not Reportable 12/25/19 03:47 Sickle Cells Not Reportable 12/25/19 03:47 Target Cells Not Reportable 12/25/19 03:47 Tear Drop Cells Not Reportable 12/25/19 03:47 Ovalocytes Not Reportable 12/25/19 03:47 Helmet Cells Not Reportable 12/25/19 03:47 [place] Bodies Not Reportable 12/25/19 03:47 Anna Rings Not Reportable 12/25/19 03:47 [place] Cells Not Reportable 12/25/19 03:47 Bite Cells Not Reportable 12/25/19 03:47 Crenated Cell Not Reportable 12/25/19 03:47 Elliptocytes Not Reportable 12/25/19 03:47 Acanthocytes (Spur) Not Reportable 12/25/19 03:47 Rouleaux Not Reportable 12/25/19 03:47 Hemoglobin C Crystals Not Reportable 12/25/19 03:47 Schistocytes Not Reportable 12/25/19 03:47 Malaria parasites Not Reportable 12/25/19 03:47 Gregg Bodies Not Reportable 12/25/19 03:47 Hem Pathologist Commnt No 12/25/19 03:47 PT 17.0 Sec. (12.2-14.9) H 11/23/19 03:47 INR 1.36 (0.87-1.13) H 11/23/19 03:47 APTT 128.2 Sec. (24.2-36.6) H* 11/23/19 03:47 Heparin Anti-Xa Level 0.31 U.I./ml (0.3-0.7) 11/23/19 09:03 ABG pH 7.429 pH Units (7.350-7.450) 01/09/20 08:51 ABG pCO2 39.1 mm Hg 01/09/20 08:51 ABG pO2 94.3 mm Hg (80.0-90.0) H 01/09/20 08:51 ABG HCO3 25.3 mmol/L (20.0-26.0) 01/09/20 08:51 ABG O2 Saturation 97.4 % (95.0-99.0) 01/09/20 08:51 ABG O2 Content 12.9 (0.0-44) 01/09/20 08:51 ABG Base Excess 1.0 mmol/L (-2.0-3.0) 01/09/20 08:51 ABG Hemoglobin 9.5 gm/dl (12.0-16.0) L 01/09/20 08:51 ABG Carboxyhemoglobin 1.3 % (0.0-5.0) 01/09/20 08:51 ABG Methemoglobin 0.4 % (0.0-1.5) 01/09/20 08:51 Oxyhemoglobin 95.7 % (95.0-99.0) 01/09/20 08:51 FiO2 35 % 01/09/20 08:51 Sodium 134 mmol/L (137-145) L 01/11/20 07:00 Potassium 4.1 mmol/L (3.6-5.0) 01/11/20 07:00 Chloride 97.7 mmol/L (98-107) L 01/11/20 07:00 Carbon Dioxide 21 mmol/L (22-30) L 01/11/20 07:00 Anion Gap 19 mmol/L 01/11/20 07:00 BUN 38 mg/dL (7-17) H 01/11/20 07:00 Creatinine 0.5 mg/dL (0.7-1.2) L 01/11/20 07:00 Estimated GFR > 60 ml/min 01/11/20 07:00 BUN/Creatinine Ratio 76 % 01/11/20 07:00 Glucose 168 mg/dL (65-100) H 01/11/20 07:00 POC Glucose 131 (70-105) H 01/15/20 12:34 Lactic Acid 1.80 mmol/L (0.7-2.0) 11/25/19 05:05 Calcium 10.5 mg/dL (8.4-10.2) H 01/11/20 07:00 Ionized Calcium 4.5 mg/dL (4.8-5.6) L 11/23/19 06:32 Phosphorus 4.20 mg/dL (2.5-4.5) D 11/28/19 08:59 Magnesium 2.30 mg/dL (1.7-2.3) 11/29/19 13:41 Total Bilirubin 0.40 mg/dL (0.1-1.2) 12/13/19 07:48 AST 27 units/L (5-40) 12/13/19 07:48 ALT 26 units/L (7-56) 12/13/19 07:48 Alkaline Phosphatase 316 units/L (35-129) H 12/13/19 07:48 Ammonia 42.0 umol/L (25-60) 11/29/19 13:41 Total Creatine Kinase 139 units/L (30-135) H 11/22/19 23:27 CK-MB (CK-2) 8.3 ng/mL (0.0-4.0) H 11/22/19 23:27 CK-MB (CK-2) Rel Index 5.9 (0-4) H 11/22/19 23:27 Troponin T < 0.010 ng/mL (0.00-0.029) 11/22/19 23:27 Total Protein 6.8 g/dL (6.3-8.2) 12/13/19 07:48 Albumin 2.4 g/dL (3.9-5) L 12/13/19 07:48 Albumin/Globulin Ratio 0.5 % 12/13/19 07:48 Lipase 18 units/L (13-60) 11/23/19 00:34 Procalcitonin 1.09 ng/mL (<0.15) 11/23/19 04:53 Urine Color Yellow (Yellow) 12/16/19 Unknown Urine Turbidity Slightly-cloudy (Clear) 12/16/19 Unknown Urine pH 5.0 (5.0-7.0) 12/16/19 Unknown Ur Specific [place] 1.018 (1.003-1.030) 12/16/19 Unknown Urine Protein 30 mg/dl mg/dL (Negative) 12/16/19 Unknown Urine Glucose (UA) Neg mg/dL (Negative) 12/16/19 Unknown Urine Ketones Neg mg/dL (Negative) 12/16/19 Unknown Urine Blood Sm (Negative) 12/16/19 Unknown Urine Nitrite Neg (Negative) 12/16/19 Unknown Urine Bilirubin Neg (Negative) 12/16/19 Unknown Urine Urobilinogen < 2.0 mg/dL (<2.0) 12/16/19 Unknown Ur Leukocyte Esterase Neg (Negative) 12/16/19 Unknown Urine WBC (Auto) 6.0 /HPF (0.0-6.0) 12/16/19 Unknown Urine RBC (Auto) 9.0 /HPF (0.0-6.0) 12/16/19 Unknown U Epithel Cells (Auto) < 1.0 /HPF (0-13.0) 12/16/19 Unknown Urine Bacteria (Auto) 2+ /HPF (Negative) 11/22/19 23:17 Hyaline Casts 3 /LPF 12/16/19 Unknown Granular Casts 3 /LPF 12/16/19 Unknown Urine Mucus Few /HPF 12/16/19 Unknown Vancomycin Trough 33.8 ug/mL (5.0-20.0) H 12/21/19 08:56 Random Vancomycin 16.2 ug/mL (0-40.0) 12/24/19 04:31 Salicylates < 0.3 mg/dL (2.8-20.0) L 11/22/19 23:27 Urine Opiates Screen Presumptive negative 11/22/19 23:17 Urine Methadone Screen Presumptive negative 11/22/19 23:17 Acetaminophen < 5.0 ug/mL (10.0-30.0) L 11/22/19 23:27 Ur Barbiturates Screen Presumptive negative 11/22/19 23:17 Ur Phencyclidine Scrn Presumptive negative 11/22/19 23:17 Ur Amphetamines Screen Presumptive negative 11/22/19 23:17 U Benzodiazepines Scrn Presumptive negative 11/22/19 23:17 Urine Cocaine Screen Presumptive negative 11/22/19 23:17 U Marijuana (THC) Screen Presumptive negative 11/22/19 23:17 Drugs of Abuse Note Disclamer 11/22/19 23:17 Plasma/Serum Alcohol 0.08 % (0-0.07) H 11/22/19 23:27 Hepatitis A IgM Ab Non-reactive (NonReactive) 11/23/19 01:19 Hep Bs Antigen Non-reactive (Negative) 11/23/19 01:19 Hep B Core IgM Ab Non-reactive (NonReactive) 11/23/19 01:19 Hepatitis C Antibody Non-reactive (NonReactive) 11/23/19 01:19 Blood Type O POSITIVE 12/21/19 14:54 Antibody Screen Negative 12/21/19 14:54 Crossmatch See Detail 12/21/19 14:54 - Diagnostic Impressions Diagnostic Impressions: Echocardiogram 11/23/19 03:58 Transthoracic Echocardiogram Indication: Cardiac arrest BP: 131/89 HR: 115 Conclusions *The study quality is technically difficult. *Global left ventricular wall motion and contractility are within normal limits. *The estimated ejection fraction is 55-60%. *Abnormal left ventricular diastolic filling is observed, consistent with impaired relaxation. *There is no pericardial effusion. Findings Procedure Info: The study quality is technically difficult. The study was technically limited due to the patient's inability to lay in the left lateral decubitus position. Left Ventricle: The left ventricular chamber size is normal. There is no left ventricular hypertrophy. Global left ventricular wall motion and contractility are within normal limits. Global left ventricular systolic function is normal. The estimated ejection fraction is 55-60%. Abnormal left ventricular diastolic filling is observed, consistent with impaired relaxation. Left Atrium: The left atrial chamber size is normal. Aortic Valve: The aortic valve leaflets are mildly thickened. Mitral Valve: The mitral valve leaflets are mildly thickened. There is no evidence of mitral regurgitation. Tricuspid Valve: The tricuspid valve leaflets are normal. There is trace tricuspid regurgitation. The right ventricular systolic pressure is calculated at 33 mmHg. Pulmonic Valve: The pulmonic valve appears normal. Pericardium: The pericardium appears normal. There is no pericardial effusion. Aorta: The aorta appears normal. Venous: The inferior vena cava appears normal in size. Measurements Chambers 2D Name Value Normal Range IVSd (2D) 0.94 cm (0.6 - 1.1) LVPWd (2D) 0.81 cm (0.6 - 1.1) LVIDd (2D) 3.6 cm (3.7 - 5.6) LVIDs (2D) 2.27 cm (2 - 3.8) LV FS (2D) 36.93 % - EF Teichholz (2D) 67.76 % - Ao root diameter (2D) 3.03 cm (2 - 3.7) Volumes/Mass Name Value Normal Range LA ESV SP 4CH (A/L) 16.89 ml - LA ESV SP 4CH (MOD) 15.52 ml - Diastolic/Systolic Function Name Value Normal Range MV E-wave Vmax 0.55 m/sec - MV deceleration time 200.89 msec - MV A-wave Vmax 0.68 m/sec - MV E:A ratio 0.82 ratio - Aortic Valve Name Value Normal Range AV Vmax 1.1 m/sec - AV VTI 15.9 cm - AV peak gradient 4.86 mmHg - AV mean gradient 2.59 mmHg - LVOT diameter 2 cm - LVOT Vmax 1.03 m/sec - LVOT VTI 15.87 cm - LVOT peak gradient 4.24 mmHg - LVOT mean gradient 2.41 mmHg - SV LVOT 49.77 ml - JOSÉ MIGUEL (continuity Vmax) 2.93 cm2 - JOSÉ MIGUEL (continuity VTI) 3.13 cm2 - Tricuspid Valve Name Value Normal Range TR Vmax 2.74 m/sec - TR peak gradient 303 mmHg - RAP 3 mmHg - RVSP 33 mmHg - IVC diameter 1.77 cm (1.2 - 2.3) Pulmonic Valve/Qp:Qs Name Value Normal Range PV Vmax 0.77 m/sec - PV peak gradient 2.4 mmHg - PV acceleration time 114.18 msec - Echocardiogram Limited Views 12/17/19 14:53 Transthoracic Echocardiogram Indication: R/O Vegetations BP: 144/83 HR: 133 Conclusions *Global left ventricular systolic function is mildly decreased. *The estimated ejection fraction is 45-50%. *A trivial pericardial effusion is visualized. Findings Left Ventricle: The left ventricular chamber size is normal. Global left ventricular systolic function is mildly decreased. The estimated ejection fraction is 45-50%. Left Atrium: The left atrial chamber size is normal. Right Ventricle: The right ventricular cavity size is normal. Right Atrium: The right atrial cavity size is normal. Aortic Valve: The aortic valve is not well visualized. There is no evidence of aortic regurgitation. Mitral Valve: The mitral valve leaflets are mildly thickened. There is trace of mitral regurgitation. Tricuspid Valve: The tricuspid valve leaflets are mildly thickened. There is trace tricuspid regurgitation. The right ventricular systolic pressure is calculated at 29 mmHg. Pulmonic Valve: The pulmonic valve is not well visualized. There is no evidence of pulmonic regurgitation. Pericardium: A trivial pericardial effusion is visualized. Aorta: There is no dilatation of the ascending aorta. There is no dilatation of the aortic root. Venous: The inferior vena cava appears normal in size. There is a greater than 50% respiratory change in the inferior vena cava dimension. Measurements Chambers 2D Name Value Normal Range IVSd (2D) 0.83 cm (0.6 - 1.1) LVPWd (2D) 0.98 cm (0.6 - 1.1) LVIDd (2D) 3.71 cm (3.7 - 5.6) LVIDs (2D) 2.93 cm (2 - 3.8) LV FS (2D) 21.12 % - EF Teichholz (2D) 43.71 % - Ao root diameter (2D) 3.02 cm (2 - 3.7) Volumes/Mass Name Value Normal Range LA ESV SP 4CH (A/L) 36.8 ml - LA ESV SP 2CH (A/L) 45.89 ml - LA ESV BP (A/L) 42.35 ml - LA ESV BP (A/L) index 26.63 ml/m2 - LA ESV SP 4CH (MOD) 34.42 ml - LA ESV SP 2CH (MOD) 44.21 ml - LA ESV BP (MOD) 39.82 ml - LA ESV BP (MOD) index 25.05 ml/m2 - Aortic Valve Name Value Normal Range LVOT diameter 1.63 cm - Tricuspid Valve Name Value Normal Range TR Vmax 2.56 m/sec - TR peak gradient 26 mmHg - RAP 3 mmHg - RVSP 29 mmHg - IVC diameter 1.83 cm (1.2 - 2.3) [place]/IV: Voiding Method Incontinent IV Catheter Type [Forearm] Peripheral IV IV Catheter Type [Left Forearm Peripheral IV ] IV Catheter Type [Right Peripheral IV Antecubital] IV Catheter Type [Right Hand] Peripheral IV IV Catheter Type [Right Wrist] Peripheral IV IV Catheter Type [Left Wrist] Peripheral IV IV Catheter Type [Left Peripheral IV Antecubital] IV Catheter Type [Right INT / Saline Lock Forearm] IV Catheter Type [Left Hand] Peripheral IV Active Medications - Current Medications Current Medications: Generic Name Dose Route Start Last Admin Trade Name Freq PRN Reason Stop Dose Admin Acetaminophen 650 mg 12/06/19 10:25 01/09/20 22:17 Tylenol FEEDTUBE 650 mg Q6H PRN Administration TEMP >/=100.3 Lipase/Protease/Amylase 1 each 11/23/19 11:50 Pancreazalayna Crenshaw 10,500 Unit FEEDTUBE PRN PRN Use w/ sod bicarb for FT Fentanyl 50 mcg 12/05/19 02:10 12/12/19 20:04 Sublimaze IV 50 mcg Q10MIN PRN Administration ANALGESIA Glycopyrrolate 2 mg 12/31/19 20:00 01/15/20 13:21 Robinul PO 2 mg TID LUCHO Administration Hydralazine HCl 10 mg 11/24/19 00:45 12/18/19 13:25 Apresoline IV 10 mg Q6H PRN Administration SBP > 160 Hydroxyzine Pamoate 25 mg 12/06/19 10:00 01/15/20 09:30 Vistaril PO 25 mg BID LUCHO Administration Lansoprazole 30 mg 11/27/19 10:00 01/15/20 09:28 Prevacid Solutab FEEDTUBE 30 mg QDAY LUCHO Administration Levetiracetam 500 mg 11/29/19 10:00 01/15/20 09:29 Keppra PO 500 mg BID LUCHO Administration Mirtazapine 30 mg 12/06/19 10:00 01/15/20 09:30 Remeron PO 30 mg DAILY LUCHO Administration Morphine Sulfate 2 mg 12/12/19 18:40 01/15/20 09:26 Morphine IV 2 mg Q4H PRN Administration Pain, Moderate (4-6) Ondansetron HCl 4 mg 12/10/19 07:53 01/06/20 10:53 Zofran IV 4 mg Q4H PRN Administration Nausea And Vomiting Quetiapine Fumarate 100 mg 01/09/20 21:41 01/14/20 21:11 Seroquel FEEDTUBE 100 mg QHS LUCHO Administration Senna/Docusate Sodium 2 tab 12/24/19 07:00 Senokot S PO BID PRN CONSTIPATION Sertraline HCl 25 mg 01/01/20 10:00 01/15/20 09:27 Zoloft PO 25 mg QDAY LUCHO Administration Simple Syrup 15 ml 11/23/19 11:50 Simple Syrup FEEDTUBE PRN PRN Hypoglycemia BG<70 Simple Syrup 30 ml 11/23/19 11:50 Simple Syrup FEEDTUBE PRN PRN Hypoglycemia Sodium Bicarbonate 325 mg 11/23/19 11:50 Sodium Bicarbonate FEEDTUBE PRN PRN For Clogged Feeding Tube Tamsulosin HCl 0.4 mg 12/14/19 13:00 01/15/20 09:29 Flomax PO 0.4 mg QDAY LUCHO Administration Nutrition/Malnutrition Assess - Dietary Evaluation Nutrition/Malnutrition Findings: Nutrition Notes Start: 11/23/19 1 1:29 Freq: Status: Active Protocol: Document 01/14/20 13:05 LM (Rec: 01/14/20 13:09 LM [email or web address]) Nutrition Notes Initial or Follow up Reassessment Current Diagnosis Hypertension Other Pertinent Diagnosis Cardaic arrest, ETOH dependence, UTI Current Diet Jevity 1.2 at 55ml/hr Labs/Tests POC glu 146 Pertinent Medications Reviewed Height 5 ft 6 in Weight 52.7 kg Jackson Body Weight (kg) 59.09 BMI 18.7 Subjective/Other Information Pt tolerating Jevity at 55ml/ hr per RN notes. Percent of energy/protein needs met: 97%/100% Burn Absent Trauma Absent GI Symptoms None Current % PO Negligible Minimum of two criteria Yes Interpretation of Weight Loss (severe) >2% in 1 week Muscle Mass Mild Depletion (non-severe) #2 Nutrition Diagnosis Malnutrition Diagnosis Progress(for reassessment Continues documentation) #1 Nutrition Diagnosis Inadequate oral intake Diagnosis Progress(for reassessment Continues documentation) Is patient on ventilator? No Is Patient Ambulatory and/or Out of Bed No REE-([facility]-confined to bed) 1377.048 Kcal/Kg value to use for calculation 31 Approximate Energy Requirements Using 1634 kcal/Kg Calculation Used for Recommendations [facility] Additional Notes Protein: 64-80g (1.2-1.5g/kg) Fluid: 1 ml/kcal Nutrition Intervention Change Diet Order: Continue TF Nutrition Support: Jevity 1.2 at 55ml/hr Flush 50ml q6h for hyponatremia Flush 90ml q4h once resolved Kcal 1,584 Protein (gm) 73 Fluid (mL) 1,065 Goal #1 TF tolerance Goal #2 Meet at least 80% of energy and protein needs via TF Anticipated Discharge Needs: TF Follow-Up By: 01/17/20 Additional Comments F/U for TF tolerance, Na
[2020-01-15] MEDS: QUEtiapine 100 MG TAB FEEDTUBE SCH (22:14)
[2020-01-15] MEDS: ACETAMINOPHEN 325 MG/10.15 ML ORAL LIQD UNIT DOSE FEEDTUBE PRN (22:15)
[2020-01-16] MEDS: GLYCOPYRROLATE 1 MG TAB PO SCH ×3 (09:39→21:14)
[2020-01-16] MEDS: hydrOXYzine PAMOATE 25 MG CAP PO SCH ×2 (09:40→21:14)
[2020-01-16] MEDS: LANSOPRAZOLE 30 MG SOLUTAB FEEDTUBE SCH (09:40)
[2020-01-16] MEDS: levETIRAcetam 500 MG/5 ML ORAL LIQD PO SCH ×2 (09:40→21:14)
[2020-01-16] MEDS: SERTRALINE 50 MG TAB PO SCH (09:40)
[2020-01-16] MEDS: TAMSULOSIN 0.4 MG CAP PO SCH (09:40)
[2020-01-16] MEDS: MIRTAZAPINE 30 MG TAB PO SCH (09:40)
--- NOTE | 2020-01-16 09:50 | Progress Note ---
Assessment and Plan Assessment and plan: --Anoxic brain injury: suspected CT head: No acute abnormality. neurology following, EEG Generalized slowing. No seizures or epileptiform activity. Neurology : Patient has intact corneal/VOR/cough reflexes, and is withdrawing lower extremities, -- Out of hospital cardiac arrest, The likelihood of meaningful neurological recovery is somewhat low. Patient awake and alert nonverbal --Acute Respiratory failure; Vent dependent, s/p trach and PEG on 12/12 on T-piece CTA chest negative for PE, , Echo diastolic dysfunction --Anemia, microcytic Status post 3 units PRBC transfusion, H&H low stable --Acute metabolic encephalopathy/toxic encephalopathy stable --Hyperammonemia -resolved --Metabolic Acidosis: Improved --Transaminitis; resolved --Leucocytosis with sepsis Source MRSA bacteremia and MSSA pneumonia. UA showed pyuria. RUQ US showed no ascites. Repeat TTE negative for vegetation. Completed 7 days of Ceftriaxone on 11/29/2019. Treated with Abx vancomycin 1 gm IV q 12 hour total 2 week till 12/30/2019 --MSSA pneumonia: Status post vancomycin till 12/30/2019 --ALcohol USe Disorder; Supportive care --Seizure disorder: Seizure precautions , continue Keppra --H. Influenzae, tracheobronchitis, treated with abx --DNR CODE STATUS --Discharge planning ; social and financial issues Case management assisting poor prognosis 12/31/19: still intubated via trach, no restraints needed, FiO2 30%, PEEP 6, Difficulty getting to Hospice, mother wants to kept updated. Patient has 4 kids, 2 sons in long term, 1 son is transgender and not involved per mother; Daughter is Deborah who is NOK 01/01/20: Still intubated, but patient opening her eyes but does not follow any command. Unable to set up inpatient hospice 01/01 pending placement, patient is self funded 01/02 pending placement, patient is self funded 01/03 pending placement, patient is self funded. still on vent. updated patient's mother 01/04 pending placement, patient is self funded. still on vent. 01/05 pending placement, patient is tolerating T-piece trial today -off vent. 01/06 patient getting T-piece trial daily, need placement. Patient is unfunded 01/08: Pt opened for 24 hours and tolerating T-piece with 8 L O2. Patient is unfunded and unable to find a placement. Family is refusing to accept the patient at home with home hospice. 01/09: daytime T-piece trials as tolerated and continue to rest on AC for now. pending placement 01/10; remains on ventilatory support DNR, for placement 01/11: Clinically stable, tracheostomy on T-piece, DC planning / placement 01/12: Clinically no change, awaiting placement 01/13: Tracheostomy on T-piece, stable, pending placement 01/14; no change clinically, DC planning 01/15: DC planning, social issues, stable for discharge Social, financial, insurance issues The high probability of a clinically significant, sudden or life threatening deterioration of the [neurology,respiratory] system(s) required my full and dire ct attention, intervention and personal management. The aggregate critical care time was [31] minutes. This time is in addition to time spent performing reported procedures but includes the following: [x] Data Review and interpretation [x] Patient assessment and monitoring of vital signs [x] Documentation [x] Medication orders and management Disposition: prognosis guarded. Family okay for DNR, placement pending History Interval history: Patient seen and examined this morning No new overnight events reported Patient is alert and awake noncommunicative Tracheostomy on T-piece Vital signs reviewed Hospitalist Physical - Constitutional Vitals: Temp Pulse Resp BP Pulse Ox 98.2 F 111 H 22 113/78 92 01/16/20 08:00 01/16/20 09:00 01/16/20 09:00 01/16/20 09:00 01/16/20 09:03 General appearance: Present: mild distress, cachectic, disheveled, other (Tracheostomy on T-piece) - EENT Eyes: Present: PERRL, EOM intact - Neck Neck: Present: supple, normal ROM - Respiratory Respiratory effort: normal Respiratory: bilateral: diminished, negative: rales, rhonchi, wheezing - Cardiovascular Rhythm: regular Heart Sounds: Present: S1 & S2 - Extremities Extremities: no ischemia, No edema - Abdominal General gastrointestinal: soft, non-tender, non-distended, normal bowel sounds - Integumentary Integumentary: Present: clear, warm - Psychiatric Psychiatric: appropriate mood/affect, cooperative - Neurologic Neurologic: moves all extremities Results - Labs CBC & Chem 7: 01/11/20 07:00 01/11/20 07:00 Labs: Laboratory Last Values WBC 11.8 K/mm3 (4.5-11.0) H 01/11/20 07:00 RBC 3.40 M/mm3 (3.65-5.03) L 01/11/20 07:00 Hgb 9.4 gm/dl (10.1-14.3) L 01/11/20 07:00 Hct 29.3 % (30.3-42.9) L 01/11/20 07:00 MCV 86 fl (79-97) 01/11/20 07:00 MCH 28 pg (28-32) 01/11/20 07:00 MCHC 32 % (30-34) 01/11/20 07:00 RDW 18.1 % (13.2-15.2) H 01/11/20 07:00 Plt Count 549 K/mm3 (140-440) H 01/11/20 07:00 Lymph % (Auto) 14.8 % (13.4-35.0) 01/11/20 07:00 [place] % (Auto) 9.1 % (0.0-7.3) H 01/11/20 07:00 Eos % (Auto) 2.1 % (0.0-4.3) 01/11/20 07:00 Baso % (Auto) 0.7 % (0.0-1.8) 01/11/20 07:00 Lymph # 1.8 K/mm3 (1.2-5.4) 01/11/20 07:00 [place] # 1.1 K/mm3 (0.0-0.8) H 01/11/20 07:00 Eos # 0.2 K/mm3 (0.0-0.4) 01/11/20 07:00 Baso # 0.1 K/mm3 (0.0-0.1) 01/11/20 07:00 Add Manual Diff Complete 12/25/19 03:47 Total Counted 200 12/25/19 03:47 Seg Neutrophils % 73.3 % (40.0-70.0) H 01/11/20 07:00 Seg Neuts % (Manual) 97.5 % (40.0-70.0) H 12/25/19 03:47 Band Neutrophils % 0 % 12/25/19 03:47 Lymphocytes % (Manual) 1.0 % (13.4-35.0) L 12/25/19 03:47 Reactive Lymphs % (Man) 0 % 12/25/19 03:47 Monocytes % (Manual) 1.5 % (0.0-7.3) 12/25/19 03:47 Eosinophils % (Manual) 0 % (0.0-4.3) 12/25/19 03:47 Basophils % (Manual) 0 % (0.0-1.8) 12/25/19 03:47 Metamyelocytes % 0 % 12/25/19 03:47 Myelocytes % 0 % 12/25/19 03:47 Promyelocytes % 0 % 12/25/19 03:47 Blast Cells % 0 % 12/25/19 03:47 Nucleated RBC % Not Reportable 12/25/19 03:47 Seg Neutrophils # 8.7 K/mm3 (1.8-7.7) H 01/11/20 07:00 Seg Neutrophils # Man 35.3 K/mm3 (1.8-7.7) H 12/25/19 03:47 Band Neutrophils # 0.0 K/mm3 12/25/19 03:47 Lymphocytes # (Manual) 0.4 K/mm3 (1.2-5.4) L 12/25/19 03:47 Abs React Lymphs (Man) 0.0 K/mm3 12/25/19 03:47 Monocytes # (Manual) 0.5 K/mm3 (0.0-0.8) 12/25/19 03:47 Eosinophils # (Manual) 0.0 K/mm3 (0.0-0.4) 12/25/19 03:47 Basophils # (Manual) 0.0 K/mm3 (0.0-0.1) 12/25/19 03:47 Metamyelocytes # 0.0 K/mm3 12/25/19 03:47 Myelocytes # 0.0 K/mm3 12/25/19 03:47 Promyelocytes # 0.0 K/mm3 12/25/19 03:47 Blast Cells # 0.0 K/mm3 12/25/19 03:47 Pathologist Review 12/13/19 07:48 WBC Morphology Not Reportable 12/25/19 03:47 Hypersegmented Neuts Not Reportable 12/25/19 03:47 Hyposegmented Neuts Not Reportable 12/25/19 03:47 Hypogranular Neuts Not Reportable 12/25/19 03:47 Smudge Cells Not Reportable 12/25/19 03:47 Toxic Granulation Not Reportable 12/25/19 03:47 Toxic Vacuolation Not Reportable 12/25/19 03:47 Dohle Bodies Not Reportable 12/25/19 03:47 Pelger-Huet Anomaly Not Reportable 12/25/19 03:47 Dominique Rods Not Reportable 12/25/19 03:47 Platelet Estimate Consistent w auto 12/25/19 03:47 Clumped Platelets Not Reportable 12/25/19 03:47 Plt Clumps, EDTA Not Reportable 12/25/19 03:47 Large Platelets Not Reportable 12/25/19 03:47 Giant Platelets Not Reportable 12/25/19 03:47 Platelet Satelliting Not Reportable 12/25/19 03:47 Plt Morphology Comment Not Reportable 12/25/19 03:47 RBC Morphology Not Reportable 12/25/19 03:47 Dimorphic RBCs Not Reportable 12/25/19 03:47 Polychromasia Not Reportable 12/25/19 03:47 Hypochromasia Not Reportable 12/25/19 03:47 Poikilocytosis Not Reportable 12/25/19 03:47 Anisocytosis 1+ 12/25/19 03:47 Microcytosis Not Reportable 12/25/19 03:47 Macrocytosis Not Reportable 12/25/19 03:47 Spherocytes Not Reportable 12/25/19 03:47 Pappenheimer Bodies Not Reportable 12/25/19 03:47 Sickle Cells Not Reportable 12/25/19 03:47 Target Cells Not Reportable 12/25/19 03:47 Tear Drop Cells Not Reportable 12/25/19 03:47 Ovalocytes Not Reportable 12/25/19 03:47 Helmet Cells Not Reportable 12/25/19 03:47 Frias-[place] Bodies Not Reportable 12/25/19 03:47 [place] Rings Not Reportable 12/25/19 03:47 Remus Cells Not Reportable 12/25/19 03:47 Bite Cells Not Reportable 12/25/19 03:47 Crenated Cell Not Reportable 12/25/19 03:47 Elliptocytes Not Reportable 12/25/19 03:47 Acanthocytes (Spur) Not Reportable 12/25/19 03:47 Rouleaux Not Reportable 12/25/19 03:47 Hemoglobin C Crystals Not Reportable 12/25/19 03:47 Schistocytes Not Reportable 12/25/19 03:47 Malaria parasites Not Reportable 12/25/19 03:47 Gregg Bodies Not Reportable 12/25/19 03:47 Hem Pathologist Commnt No 12/25/19 03:47 PT 17.0 Sec. (12.2-14.9) H 11/23/19 03:47 INR 1.36 (0.87-1.13) H 11/23/19 03:47 APTT 128.2 Sec. (24.2-36.6) H* 11/23/19 03:47 Heparin Anti-Xa Level 0.31 U.I./ml (0.3-0.7) 11/23/19 09:03 ABG pH 7.429 pH Units (7.350-7.450) 01/09/20 08:51 ABG pCO2 39.1 mm Hg 01/09/20 08:51 ABG pO2 94.3 mm Hg (80.0-90.0) H 01/09/20 08:51 ABG HCO3 25.3 mmol/L (20.0-26.0) 01/09/20 08:51 ABG O2 Saturation 97.4 % (95.0-99.0) 01/09/20 08:51 ABG O2 Content 12.9 (0.0-44) 01/09/20 08:51 ABG Base Excess 1.0 mmol/L (-2.0-3.0) 01/09/20 08:51 ABG Hemoglobin 9.5 gm/dl (12.0-16.0) L 01/09/20 08:51 ABG Carboxyhemoglobin 1.3 % (0.0-5.0) 01/09/20 08:51 ABG Methemoglobin 0.4 % (0.0-1.5) 01/09/20 08:51 Oxyhemoglobin 95.7 % (95.0-99.0) 01/09/20 08:51 FiO2 35 % 01/09/20 08:51 Sodium 134 mmol/L (137-145) L 01/11/20 07:00 Potassium 4.1 mmol/L (3.6-5.0) 01/11/20 07:00 Chloride 97.7 mmol/L (98-107) L 01/11/20 07:00 Carbon Dioxide 21 mmol/L (22-30) L 01/11/20 07:00 Anion Gap 19 mmol/L 01/11/20 07:00 BUN 38 mg/dL (7-17) H 01/11/20 07:00 Creatinine 0.5 mg/dL (0.7-1.2) L 01/11/20 07:00 Estimated GFR > 60 ml/min 01/11/20 07:00 BUN/Creatinine Ratio 76 % 01/11/20 07:00 Glucose 168 mg/dL (65-100) H 01/11/20 07:00 POC Glucose 121 (70-105) H 01/16/20 05:06 Lactic Acid 1.80 mmol/L (0.7-2.0) 11/25/19 05:05 Calcium 10.5 mg/dL (8.4-10.2) H 01/11/20 07:00 Ionized Calcium 4.5 mg/dL (4.8-5.6) L 11/23/19 06:32 Phosphorus 4.20 mg/dL (2.5-4.5) D 11/28/19 08:59 Magnesium 2.30 mg/dL (1.7-2.3) 11/29/19 13:41 Total Bilirubin 0.40 mg/dL (0.1-1.2) 12/13/19 07:48 AST 27 units/L (5-40) 12/13/19 07:48 ALT 26 units/L (7-56) 12/13/19 07:48 Alkaline Phosphatase 316 units/L (35-129) H 12/13/19 07:48 Ammonia 42.0 umol/L (25-60) 11/29/19 13:41 Total Creatine Kinase 139 units/L (30-135) H 11/22/19 23:27 CK-MB (CK-2) 8.3 ng/mL (0.0-4.0) H 11/22/19 23:27 CK-MB (CK-2) Rel Index 5.9 (0-4) H 11/22/19 23:27 Troponin T < 0.010 ng/mL (0.00-0.029) 11/22/19 23:27 Total Protein 6.8 g/dL (6.3-8.2) 12/13/19 07:48 Albumin 2.4 g/dL (3.9-5) L 12/13/19 07:48 Albumin/Globulin Ratio 0.5 % 12/13/19 07:48 Lipase 18 units/L (13-60) 11/23/19 00:34 Procalcitonin 1.09 ng/mL (<0.15) 11/23/19 04:53 Urine Color Yellow (Yellow) 12/16/19 Unknown Urine Turbidity Slightly-cloudy (Clear) 12/16/19 Unknown Urine pH 5.0 (5.0-7.0) 12/16/19 Unknown Ur Specific [place] 1.018 (1.003-1.030) 12/16/19 Unknown Urine Protein 30 mg/dl mg/dL (Negative) 12/16/19 Unknown Urine Glucose (UA) Neg mg/dL (Negative) 12/16/19 Unknown Urine Ketones Neg mg/dL (Negative) 12/16/19 Unknown Urine Blood Sm (Negative) 12/16/19 Unknown Urine Nitrite Neg (Negative) 12/16/19 Unknown Urine Bilirubin Neg (Negative) 12/16/19 Unknown Urine Urobilinogen < 2.0 mg/dL (<2.0) 12/16/19 Unknown Ur Leukocyte Esterase Neg (Negative) 12/16/19 Unknown Urine WBC (Auto) 6.0 /HPF (0.0-6.0) 12/16/19 Unknown Urine RBC (Auto) 9.0 /HPF (0.0-6.0) 12/16/19 Unknown U Epithel Cells (Auto) < 1.0 /HPF (0-13.0) 12/16/19 Unknown Urine Bacteria (Auto) 2+ /HPF (Negative) 11/22/19 23:17 Hyaline Casts 3 /LPF 12/16/19 Unknown Granular Casts 3 /LPF 12/16/19 Unknown Urine Mucus Few /HPF 12/16/19 Unknown Vancomycin Trough 33.8 ug/mL (5.0-20.0) H 12/21/19 08:56 Random Vancomycin 16.2 ug/mL (0-40.0) 12/24/19 04:31 Salicylates < 0.3 mg/dL (2.8-20.0) L 11/22/19 23:27 Urine Opiates Screen Presumptive negative 11/22/19 23:17 Urine Methadone Screen Presumptive negative 11/22/19 23:17 Acetaminophen < 5.0 ug/mL (10.0-30.0) L 11/22/19 23:27 Ur Barbiturates Screen Presumptive negative 11/22/19 23:17 Ur Phencyclidine Scrn Presumptive negative 11/22/19 23:17 Ur Amphetamines Screen Presumptive negative 11/22/19 23:17 U Benzodiazepines Scrn Presumptive negative 11/22/19 23:17 Urine Cocaine Screen Presumptive negative 11/22/19 23:17 U Marijuana (THC) Screen Presumptive negative 11/22/19 23:17 Drugs of Abuse Note Disclamer 11/22/19 23:17 Plasma/Serum Alcohol 0.08 % (0-0.07) H 11/22/19 23:27 Hepatitis A IgM Ab Non-reactive (NonReactive) 11/23/19 01:19 Hep Bs Antigen Non-reactive (Negative) 11/23/19 01:19 Hep B Core IgM Ab Non-reactive (NonReactive) 11/23/19 01:19 Hepatitis C Antibody Non-reactive (NonReactive) 11/23/19 01:19 Blood Type O POSITIVE 12/21/19 14:54 Antibody Screen Negative 12/21/19 14:54 Crossmatch See Detail 12/21/19 14:54 - Diagnostic Impressions Diagnostic Impressions: Echocardiogram 11/23/19 03:58 Transthoracic Echocardiogram Indication: Cardiac arrest BP: 131/89 HR: 115 Conclusions *The study quality is technically difficult. *Global left ventricular wall motion and contractility are within normal limits. *The estimated ejection fraction is 55-60%. *Abnormal left ventricular diastolic filling is observed, consistent with impaired relaxation. *There is no pericardial effusion. Findings Procedure Info: The study quality is technically difficult. The study was technically limited due to the patient's inability to lay in the left lateral decubitus position. Left Ventricle: The left ventricular chamber size is normal. There is no left ventricular hypertrophy. Global left ventricular wall motion and contractility are within normal limits. Global left ventricular systolic function is normal. The estimated ejection fraction is 55-60%. Abnormal left ventricular diastolic filling is observed, consistent with impaired relaxation. Left Atrium: The left atrial chamber size is normal. Aortic Valve: The aortic valve leaflets are mildly thickened. Mitral Valve: The mitral valve leaflets are mildly thickened. There is no evidence of mitral regurgitation. Tricuspid Valve: The tricuspid valve leaflets are normal. There is trace tricuspid regurgitation. The right ventricular systolic pressure is calculated at 33 mmHg. Pulmonic Valve: The pulmonic valve appears normal. Pericardium: The pericardium appears normal. There is no pericardial effusion. Aorta: The aorta appears normal. Venous: The inferior vena cava appears normal in size. Measurements Chambers 2D Name Value Normal Range IVSd (2D) 0.94 cm (0.6 - 1.1) LVPWd (2D) 0.81 cm (0.6 - 1.1) LVIDd (2D) 3.6 cm (3.7 - 5.6) LVIDs (2D) 2.27 cm (2 - 3.8) LV FS (2D) 36.93 % - EF Teichholz (2D) 67.76 % - Ao root diameter (2D) 3.03 cm (2 - 3.7) Volumes/Mass Name Value Normal Range LA ESV SP 4CH (A/L) 16.89 ml - LA ESV SP 4CH (MOD) 15.52 ml - Diastolic/Systolic Function Name Value Normal Range MV E-wave Vmax 0.55 m/sec - MV deceleration time 200.89 msec - MV A-wave Vmax 0.68 m/sec - MV E:A ratio 0.82 ratio - Aortic Valve Name Value Normal Range AV Vmax 1.1 m/sec - AV VTI 15.9 cm - AV peak gradient 4.86 mmHg - AV mean gradient 2.59 mmHg - LVOT diameter 2 cm - LVOT Vmax 1.03 m/sec - LVOT VTI 15.87 cm - LVOT peak gradient 4.24 mmHg - LVOT mean gradient 2.41 mmHg - SV LVOT 49.77 ml - JOSÉ MIGUEL (continuity Vmax) 2.93 cm2 - JOSÉ MIGUEL (continuity VTI) 3.13 cm2 - Tricuspid Valve Name Value Normal Range TR Vmax 2.74 m/sec - TR peak gradient 303 mmHg - RAP 3 mmHg - RVSP 33 mmHg - IVC diameter 1.77 cm (1.2 - 2.3) Pulmonic Valve/Qp:Qs Name Value Normal Range PV Vmax 0.77 m/sec - PV peak gradient 2.4 mmHg - PV acceleration time 114.18 msec - Echocardiogram Limited Views 12/17/19 14:53 Transthoracic Echocardiogram Indication: R/O Vegetations BP: 144/83 HR: 133 Conclusions *Global left ventricular systolic function is mildly decreased. *The estimated ejection fraction is 45-50%. *A trivial pericardial effusion is visualized. Findings Left Ventricle: The left ventricular chamber size is normal. Global left ventricular systolic function is mildly decreased. The estimated ejection fraction is 45-50%. Left Atrium: The left atrial chamber size is normal. Right Ventricle: The right ventricular cavity size is normal. Right Atrium: The right atrial cavity size is normal. Aortic Valve: The aortic valve is not well visualized. There is no evidence of aortic regurgitation. Mitral Valve: The mitral valve leaflets are mildly thickened. There is trace of mitral regurgitation. Tricuspid Valve: The tricuspid valve leaflets are mildly thickened. There is trace tricuspid regurgitation. The right ventricular systolic pressure is calculated at 29 mmHg. Pulmonic Valve: The pulmonic valve is not well visualized. There is no evidence of pulmonic regurgitation. Pericardium: A trivial pericardial effusion is visualized. Aorta: There is no dilatation of the ascending aorta. There is no dilatation of the aortic root. Venous: The inferior vena cava appears normal in size. There is a greater than 50% respiratory change in the inferior vena cava dimension. Measurements Chambers 2D Name Value Normal Range IVSd (2D) 0.83 cm (0.6 - 1.1) LVPWd (2D) 0.98 cm (0.6 - 1.1) LVIDd (2D) 3.71 cm (3.7 - 5.6) LVIDs (2D) 2.93 cm (2 - 3.8) LV FS (2D) 21.12 % - EF Teichholz (2D) 43.71 % - Ao root diameter (2D) 3.02 cm (2 - 3.7) Volumes/Mass Name Value Normal Range LA ESV SP 4CH (A/L) 36.8 ml - LA ESV SP 2CH (A/L) 45.89 ml - LA ESV BP (A/L) 42.35 ml - LA ESV BP (A/L) index 26.63 ml/m2 - LA ESV SP 4CH (MOD) 34.42 ml - LA ESV SP 2CH (MOD) 44.21 ml - LA ESV BP (MOD) 39.82 ml - LA ESV BP (MOD) index 25.05 ml/m2 - Aortic Valve Name Value Normal Range LVOT diameter 1.63 cm - Tricuspid Valve Name Value Normal Range TR Vmax 2.56 m/sec - TR peak gradient 26 mmHg - RAP 3 mmHg - RVSP 29 mmHg - IVC diameter 1.83 cm (1.2 - 2.3) [place]/IV: Voiding Method Incontinent IV Catheter Type [Forearm] Peripheral IV IV Catheter Type [Left Forearm Peripheral IV ] IV Catheter Type [Right Peripheral IV Antecubital] IV Catheter Type [Right Hand] Peripheral IV IV Catheter Type [Right Wrist] Peripheral IV IV Catheter Type [Left Wrist] Peripheral IV IV Catheter Type [Left Peripheral IV Antecubital] IV Catheter Type [Right INT / Saline Lock Forearm] IV Catheter Type [Left Hand] Peripheral IV Active Medications - Current Medications Current Medications: Generic Name Dose Route Start Last Admin Trade Name Freq PRN Reason Stop Dose Admin Acetaminophen 650 mg 12/06/19 10:25 01/15/20 22:15 Tylenol FEEDTUBE 650 mg Q6H PRN Administration TEMP >/=100.3 Lipase/Protease/Amylase 1 each 11/23/19 11:50 Pancreazalayna Crenshaw 10,500 Unit FEEDTUBE PRN PRN Use w/ sod bicarb for FT Fentanyl 50 mcg 12/05/19 02:10 12/12/19 20:04 Sublimaze IV 50 mcg Q10MIN PRN Administration ANALGESIA Glycopyrrolate 2 mg 12/31/19 20:00 01/16/20 09:39 Robinul PO 2 mg TID LUCHO Administration Hydralazine HCl 10 mg 11/24/19 00:45 12/18/19 13:25 Apresoline IV 10 mg Q6H PRN Administration SBP > 160 Hydroxyzine Pamoate 25 mg 12/06/19 10:00 01/16/20 09:40 Vistaril PO 25 mg BID LUCHO Administration Lansoprazole 30 mg 11/27/19 10:00 01/16/20 09:40 Prevacid Solutab FEEDTUBE 30 mg QDAY LUCHO Administration Levetiracetam 500 mg 11/29/19 10:00 01/16/20 09:40 Keppra PO 500 mg BID LUCHO Administration Mirtazapine 30 mg 12/06/19 10:00 01/16/20 09:40 Remeron PO 30 mg DAILY LUCHO Administration Morphine Sulfate 2 mg 12/12/19 18:40 01/15/20 09:26 Morphine IV 2 mg Q4H PRN Administration Pain, Moderate (4-6) Ondansetron HCl 4 mg 12/10/19 07:53 01/06/20 10:53 Zofran IV 4 mg Q4H PRN Administration Nausea And Vomiting Quetiapine Fumarate 100 mg 01/09/20 21:41 01/15/20 22:14 Seroquel FEEDTUBE 100 mg QHS LUCHO Administration Senna/Docusate Sodium 2 tab 12/24/19 07:00 Senokot S PO BID PRN CONSTIPATION Sertraline HCl 25 mg 01/01/20 10:00 01/16/20 09:40 Zoloft PO 25 mg QDAY LUCHO Administration Simple Syrup 15 ml 11/23/19 11:50 Simple Syrup FEEDTUBE PRN PRN Hypoglycemia BG<70 Simple Syrup 30 ml 11/23/19 11:50 Simple Syrup FEEDTUBE PRN PRN Hypoglycemia Sodium Bicarbonate 325 mg 11/23/19 11:50 Sodium Bicarbonate FEEDTUBE PRN PRN For Clogged Feeding Tube Tamsulosin HCl 0.4 mg 12/14/19 13:00 01/16/20 09:40 Flomax PO 0.4 mg QDAY LUCHO Administration Nutrition/Malnutrition Assess - Dietary Evaluation Nutrition/Malnutrition Findings: Nutrition Notes Start: 11/23/19 11:29 Freq: Status: Active Protocol: Document 01/14/20 13:05 EFRAIN (Rec: 01/14/20 13:09 EFRAIN [email or web address]) Nutrition Notes Initial or Follow up Reassessment Current Diagnosis Hypertension Other Pertinent Diagnosis Cardaic arrest, ETOH dependence, UTI Current Diet Jevity 1.2 at 55ml/hr Labs/Tests POC glu 146 Pertinent Medications Reviewed Height 5 ft 6 in Weight 52.7 kg [place] Body Weight (kg) 59.09 BMI 18.7 Subjective/Other Information Pt tolerating Jevity at 55ml/ hr per RN notes. Percent of energy/protein needs met: 97%/100% Burn Absent Trauma Absent GI Symptoms None Current % PO Negligible Minimum of two criteria Yes Interpretation of Weight Loss (severe) >2% in 1 week Muscle Mass Mild Depletion (non-severe) #2 Nutrition Diagnosis Malnutrition Diagnosis Progress(for reassessment Continues documentation) #1 Nutrition Diagnosis Inadequate oral intake Diagnosis Progress(for reassessment Continues documentation) Is patient on ventilator? No Is Patient Ambulatory and/or Out of Bed No REE-([facility]-confined to bed) 1377.048 Kcal/Kg value to use for calculation 31 Approximate Energy Requirements Using 1634 kcal/Kg Calculation Used for Recommendations [facility] Additional Notes Protein: 64-80g (1.2-1.5g/kg) Fluid: 1 ml/kcal Nutrition Intervention Change Diet Order: Continue TF Nutrition Support: Jevity 1.2 at 55ml/hr Flush 50ml q6h for hyponatremia Flush 90ml q4h once resolved Kcal 1,584 Protein (gm) 73 Fluid (mL) 1,065 Goal #1 TF tolerance Goal #2 Meet at least 80% of energy and protein needs via TF Anticipated Discharge Needs: TF Follow-Up By: 01/17/20 Additional Comments F/U for TF tolerance, Na
--- NOTE | 2020-01-16 13:18 | Progress Note ---
Assessment and Plan Acute cardiopulmonary arrest with ROSC Acute hypoxemic respiratory failure on MVS Acute metabolic-toxic encephalopathy Metabolic acidosis/alcoholic acidosis/Lactic acidosis Ischemic hepatitis Leucocytosis with lactic acidosis Tobacco use disorder ALcohol use Disorder Hypokalemia High grade fevers - continue RTC T-piece trials as tolerated - no new issues; continue care as below otherwise - repeat CXR prn at this point - Continue to wean supplemental oxygen for target O2 sat's > 90% - continue bronchodilators with routine trach care and pulmonary hygiene per RT - Slow Seroquel taper - consider Provigil - s/p Antibiotics per ID recommendations - continue Reglan for G.I. motility - Continue VTE and Stress ulcer prophylaxis - Continue enteric nutritional support - Monitor glycemic control, with target blood glucose 140-180 mg/dL while critically ill (Avoid hypoglycemia) - ABG and CXR prn - Continue to avoid nephrotoxins, adjust all medications fro GFR and CrCL - Continue to avoid benzodiazepines , as much as possible, to reduce the possibility of delirium - Continue prn analgesia per CPOT score - Continue to maintain of sleep-wake cycle, avoid delirium - PT/OT/ROM exercises- awaiting PT/OT evaluation - Continue mobility protocol and skin assessment per protocol for pressure ulcer prevention - Continue to monitor for clinical seizures - Continue Nicotine withdrawal precautions, alcohol withdrawal precautions - continue other care per attending / other consultants ..... re-evaluate in am & prn CONDITION: FAIR PROGNOSIS: IMPROVED CODE STATUS: FULL CODE Subjective Date of service: 01/15/20 Principal diagnosis: Ac cardiopulmonary arrest; Ac hypoxemic resp failure; Acute encephalopathy Interval history: LATE ENTRY FOR DOS 01/15/2020 Patient is seen today for: Acute cardiopulmonary arrest with ROSC; Acute hypoxemic respiratory failure; Acute metabolic-toxic encephalopathy; Ischemic hepatitis; Leucocytosis with lactic acidosis; Tobacco use disorder; Alcohol use Disorder; Hypokalemia; High grade fevers Seen and examined at bedside; 24hour events reviewed; nursing and respiratory care staff consulted; no adverse overnight events reported to me; resting peacefully in bed; downsized and tolerating well; no new issues Objective Vital Signs - 12hr 01/16/20 01/16/20 01/16/20 02:00 03:00 04:00 Temperature 97.5 F L Pulse Rate 105 H 101 H 105 H Pulse Rate [ 101 H From Monitor] Respiratory 20 21 22 Rate Blood Pressure 125/79 125/79 129/88 O2 Sat by Pulse 100 100 99 Oximetry O2 Sat by Pulse Oximetry [ Assessment] 01/16/20 01/16/20 01/16/20 04:26 05:00 06:00 Temperature Pulse Rate 113 H 113 H Pulse Rate [ From Monitor] Respiratory 21 23 Rate Blood Pressure 129/88 129/88 O2 Sat by Pulse 99 98 Oximetry O2 Sat by Pulse 99 Oximetry [ Assessment] 01/16/20 01/16/20 01/16/20 07:00 07:06 08:00 Temperature 98.2 F Pulse Rate 109 H 106 H 108 H Pulse Rate [ 106 H From Monitor] Respiratory 19 22 30 H Rate Blood Pressure 129/88 113/78 O2 Sat by Pulse 98 100 100 Oximetry O2 Sat by Pulse Oximetry [ Assessment] 01/16/20 01/16/20 01/16/20 09:00 09:02 09:03 Temperature Pulse Rate 111 H Pulse Rate [ From Monitor] Respiratory 22 Rate Blood Pressure 113/78 O2 Sat by Pulse 94 92 Oximetry O2 Sat by Pulse 92 Oximetry [ Assessment] 01/16/20 01/16/20 01/16/20 10:00 11:00 11:04 Temperature Pulse Rate 112 H 119 H 118 H Pulse Rate [ From Monitor] Respiratory 24 27 H Rate Blood Pressure 113/78 113/78 O2 Sat by Pulse 95 97 Oximetry O2 Sat by Pulse Oximetry [ Assessment] 01/16/20 01/16/20 11:05 12:00 Temperature 98.2 F Pulse Rate 117 H Pulse Rate [ 106 H From Monitor] Respiratory 22 26 H Rate Blood Pressure 116/76 O2 Sat by Pulse 100 96 Oximetry O2 Sat by Pulse Oximetry [ Assessment] Constitutional: no acute distress, other (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, with midline tracheostomy and mild dys-synchrony) Eyes: non-icteric ENT: oropharynx moist, other (s/p trach) Neck: supple, no lymphadenopathy, no JVD Effort: mildly labored Ascultation: Bilateral: diminished breath sounds, rhonchi Percussion: Bilateral: not dull Cardiovascular: regular rate and rhythm (tachycardia), other (S1,S2) Gastrointestinal: normoactive bowel sounds, soft, non-tender, non-distended Integumentary: normal Extremities: no cyanosis, no edema, pulses normal, no ischemia or petechiae Neurologic: other (awake; folowing simple commands) Psychiatric: other (Psychiatric: Unable to assess re: AMS) CBC and BMP: 01/11/20 07:00 01/11/20 07:00 ABG, PT/INR, D-dimer: ABG ABG pH 7.429 pH Units (7.350-7.450) 01/09/20 08:51 ABG pCO2 39.1 mm Hg 01/09/20 08:51 ABG pO2 94.3 mm Hg (80.0-90.0) H 01/09/20 08:51 ABG O2 Saturation 97.4 % (95.0-99.0) 01/09/20 08:51 PT/INR, D-dimer PT 17.0 Sec. (12.2-14.9) H 11/23/19 03:47 INR 1.36 (0.87-1.13) H 11/23/19 03:47 Abnormal lab findings: Abnormal Labs 11/22/19 11/22/19 11/22/19 23:17 23:18 23:27 WBC 21.2 H RBC 3.59 L Hgb 9.8 L Hct MCH 27 L RDW 18.6 H Plt Count 454 H Lymph % (Auto) [place] % (Auto) [place] # Baso # Seg Neutrophils % Seg Neuts % (Manual) 86.0 H Lymphocytes % (Manual) 9.0 L Monocytes % (Manual) Seg Neutrophils # Seg Neutrophils # Man 18.2 H Lymphocytes # (Manual) Monocytes # (Manual) 1.1 H Eosinophils # (Manual) Basophils # (Manual) PT INR APTT ABG pH ABG pO2 ABG HCO3 ABG O2 Saturation ABG Base Excess ABG Hemoglobin Oxyhemoglobin Sodium Potassium Chloride Carbon Dioxide BUN Creatinine Glucose POC Glucose 53 L Lactic Acid Calcium Ionized Calcium Phosphorus Magnesium Total Bilirubin AST ALT Alkaline Phosphatase Ammonia Total Creatine Kinase CK-MB (CK-2) CK-MB (CK-2) Rel Index Total Protein Albumin Urine WBC (Auto) 40.0 H Vancomycin Trough Salicylates Acetaminophen Plasma/Serum Alcohol Crossmatch 11/22/19 11/22/19 11/22/19 23:27 23:27 23:27 WBC RBC Hgb Hct MCH RDW Plt Count Lymph % (Auto) [place] % (Auto) [place] # Baso # Seg Neutrophils % Seg Neuts % (Manual) Lymphocytes % (Manual) Monocytes % (Manual) Seg Neutrophils # Seg Neutrophils # Man Lymphocytes # (Manual) Monocytes # (Manual) Eosinophils # (Manual) Basophils # (Manual) PT INR APTT ABG pH ABG pO2 ABG HCO3 ABG O2 Saturation ABG Base Excess ABG Hemoglobin Oxyhemoglobin Sodium Potassium 2.4 L* Chloride 85.1 L Carbon Dioxide 19 L BUN Creatinine 0.5 L Glucose 261 H POC Glucose Lactic Acid Calcium Ionized Calcium Phosphorus Magnesium Total Bilirubin AST 609 H ALT 152 H Alkaline Phosphatase 160 H Ammonia 117.0 H Total Creatine Kinase 139 H CK-MB (CK-2) 8.3 H CK-MB (CK-2) Rel Index 5.9 H Total Protein Albumin 3.6 L Urine WBC (Auto) Vancomycin Trough Salicylates < 0.3 L Acetaminophen Plasma/Serum Alcohol Crossmatch 11/22/19 11/22/19 11/23/19 23:27 23:27 01:10 WBC RBC Hgb Hct MCH RDW Plt Count Lymph % (Auto) [place] % (Auto) [place] # Baso # Seg Neutrophils % Seg Neuts % (Manual) Lymphocytes % (Manual) Monocytes % (Manual) Seg Neutrophils # Seg Neutrophils # Man Lymphocytes # (Manual) Monocytes # (Manual) Eosinophils # (Manual) Basophils # (Manual) PT INR APTT ABG pH 7.273 L ABG pO2 209.7 H ABG HCO3 ABG O2 Saturation 99.2 H ABG Base Excess -3.9 L ABG Hemoglobin 10.6 L Oxyhemoglobin 93.9 L Sodium Potassium Chloride Carbon Dioxide BUN Creatinine Glucose POC Glucose Lactic Acid Calcium Ionized Calcium Phosphorus Magnesium Total Bilirubin AST ALT Alkaline Phosphatase Ammonia Total Creatine Kinase CK-MB (CK-2) CK-MB (CK-2) Rel Index Total Protein Albumin Urine WBC (Auto) Vancomycin Trough Salicylates Acetaminophen < 5.0 L Plasma/Serum Alcohol 0.08 H Crossmatch 11/23/19 11/23/19 11/23/19 01:19 01:19 03:47 WBC RBC Hgb Hct MCH RDW Plt Count Lymph % (Auto) [place] % (Auto) [place] # Baso # Seg Neutrophils % Seg Neuts % (Manual) Lymphocytes % (Manual) Monocytes % (Manual) Seg Neutrophils # Seg Neutrophils # Man Lymphocytes # (Manual) Monocytes # (Manual) Eosinophils # (Manual) Basophils # (Manual) PT 16.3 H INR 1.29 H APTT ABG pH ABG pO2 ABG HCO3 ABG O2 Saturation ABG Base Excess ABG Hemoglobin Oxyhemoglobin Sodium Potassium Chloride Carbon Dioxide BUN Creatinine Glucose POC Glucose Lactic Acid 2.10 H* 5.00 H* Calcium Ionized Calcium Phosphorus Magnesium Total Bilirubin AST ALT Alkaline Phosphatase Ammonia Total Creatine Kinase CK-MB (CK-2) CK-MB (CK-2) Rel Index Total Protein Albumin Urine WBC (Auto) Vancomycin Trough Salicylates Acetaminophen Plasma/Serum Alcohol Crossmatch 11/23/19 11/23/19 11/23/19 03:47 03:47 04:53 WBC RBC Hgb 9.4 L Hct MCH RDW Plt Count Lymph % (Auto) [place] % (Auto) [place] # Baso # Seg Neutrophils % Seg Neuts % (Manual) Lymphocytes % (Manual) Monocytes % (Manual) Seg Neutrophils # Seg Neutrophils # Man Lymphocytes # (Manual) Monocytes # (Manual) Eosinophils # (Manual) Basophils # (Manual) PT 17.0 H INR 1.36 H APTT 128.2 H* ABG pH ABG pO2 ABG HCO3 ABG O2 Saturation ABG Base Excess ABG Hemoglobin Oxyhemoglobin Sodium Potassium Chloride Carbon Dioxide 18 L BUN Creatinine 0.5 L Glucose 105 H POC Glucose Lactic Acid Calcium 8.3 L Ionized Calcium Phosphorus 2.40 L Magnesium Total Bilirubin 1.30 H AST 761 H ALT 158 H Alkaline Phosphatase 143 H Ammonia Total Creatine Kinase CK-MB (CK-2) CK-MB (CK-2) Rel Index Total Protein Albumin 2.8 L Urine WBC (Auto) Vancomycin Trough Salicylates Acetaminophen Plasma/Serum Alcohol Crossmatch 11/23/19 11/23/19 11/23/19 05:12 06:32 06:32 WBC 16.8 H RBC 3.31 L Hgb 8.9 L Hct 28.7 L MCH 27 L RDW 18.6 H Plt Count Lymph % (Auto) [place] % (Auto) [place] # Baso # Seg Neutrophils % Seg Neuts % (Manual) 94.0 H Lymphocytes % (Manual) 1.0 L Monocytes % (Manual) Seg Neutrophils # Seg Neutrophils # Man 15.8 H Lymphocytes # (Manual) 0.2 L Monocytes # (Manual) Eosinophils # (Manual) Basophils # (Manual) PT INR APTT ABG pH ABG pO2 ABG HCO3 ABG O2 Saturation ABG Base Excess -3.2 L ABG Hemoglobin 9.0 L Oxyhemoglobin 93.6 L Sodium Potassium Chloride Carbon Dioxide BUN Creatinine Glucose POC Glucose Lactic Acid Calcium Ionized Calcium 4.5 L Phosphorus Magnesium Total Bilirubin AST ALT Alkaline Phosphatase Ammonia Total Creatine Kinase CK-MB (CK-2) CK-MB (CK-2) Rel Index Total Protein Albumin Urine WBC (Auto) Vancomycin Trough Salicylates Acetaminophen Plasma/Serum Alcohol Crossmatch 11/23/19 11/24/19 11/24/19 06:32 04:35 04:35 WBC RBC Hgb Hct MCH RDW Plt Count Lymph % (Auto) [place] % (Auto) [place] # Baso # Seg Neutrophils % Seg Neuts % (Manual) Lymphocytes % (Manual) Monocytes % (Manual) Seg Neutrophils # Seg Neutrophils # Man Lymphocytes # (Manual) Monocytes # (Manual) Eosinophils # (Manual) Basophils # (Manual) PT INR APTT ABG pH ABG pO2 ABG HCO3 ABG O2 Saturation ABG Base Excess ABG Hemoglobin Oxyhemoglobin Sodium Potassium Chloride Carbon Dioxide BUN Creatinine Glucose POC Glucose Lactic Acid 3.30 H* Calcium Ionized Calcium Phosphorus Magnesium 1.40 L Total Bilirubin AST ALT Alkaline Phosphatase Ammonia 98.0 H Total Creatine Kinase CK-MB (CK-2) CK-MB (CK-2) Rel Index Total Protein Albumin Urine WBC (Auto) Vancomycin Trough Salicylates Acetaminophen Plasma/Serum Alcohol Crossmatch 11/24/19 11/25/19 11/25/19 05:22 04:34 05:05 WBC 17.3 H RBC 2.88 L Hgb 7.8 L Hct 24.6 L MCH 27 L RDW 18.5 H Plt Count Lymph % (Auto) 7.7 L [place] % (Auto) 9.7 H [place] # 1.7 H Baso # Seg Neutrophils % 82.2 H Seg Neuts % (Manual) Lymphocytes % (Manual) Monocytes % (Manual) Seg Neutrophils # 14.2 H Seg Neutrophils # Man Lymphocytes # (Manual) Monocytes # (Manual) Eosinophils # (Manual) Basophils # (Manual) PT INR APTT ABG pH 7.475 H ABG pO2 ABG HCO3 29.4 H 32.3 H ABG O2 Saturation ABG Base Excess 5.4 H 6.9 H ABG Hemoglobin 9.0 L 10.6 L Oxyhemoglobin 94.3 L Sodium Potassium Chloride Carbon Dioxide BUN Creatinine Glucose POC Glucose Lactic Acid Calcium Ionized Calcium Phosphorus Magnesium Total Bilirubin AST ALT Alkaline Phosphatase Ammonia Total Creatine Kinase CK-MB (CK-2) CK-MB (CK-2) Rel Index Total Protein Albumin Urine WBC (Auto) Vancomycin Trough Salicylates Acetaminophen Plasma/Serum Alcohol Crossmatch 11/25/19 11/25/19 11/26/19 05:05 22:46 03:31 WBC RBC Hgb Hct MCH RDW Plt Count Lymph % (Auto) [place] % (Auto) [place] # Baso # Seg Neutrophils % Seg Neuts % (Manual) Lymphocytes % (Manual) Monocytes % (Manual) Seg Neutrophils # Seg Neutrophils # Man Lymphocytes # (Manual) Monocytes # (Manual) Eosinophils # (Manual) Basophils # (Manual) PT INR APTT ABG pH 7.459 H ABG pO2 ABG HCO3 34.2 H ABG O2 Saturation ABG Base Excess 9.4 H ABG Hemoglobin 7.6 L Oxyhemoglobin 94.8 L Sodium 152 H D 147 H Potassium 2.3 L* D 2.8 L* D Chloride 107.8 H Carbon Dioxide 31 H D 33 H BUN Creatinine 0.6 L 0.6 L Glucose 148 H 177 H POC Glucose Lactic Acid Calcium Ionized Calcium Phosphorus Magnesium Total Bilirubin AST 105 H ALT 71 H Alkaline Phosphatase 155 H Ammonia Total Creatine Kinase CK-MB (CK-2) CK-MB (CK-2) Rel Index Total Protein 5.2 L D Albumin 2.9 L Urine WBC (Auto) Vancomycin Trough Salicylates Acetaminophen Plasma/Serum Alcohol Crossmatch 11/26/19 11/26/19 11/27/19 08:24 08:24 04:20 WBC 12.0 H RBC 3.00 L Hgb 8.0 L 9.3 L Hct 25.9 L 29.7 L MCH 27 L RDW 18.5 H Plt Count Lymph % (Auto) [place] % (Auto) [place] # Baso # Seg Neutrophils % Seg Neuts % (Manual) 89.0 H Lymphocytes % (Manual) 4.0 L Monocytes % (Manual) Seg Neutrophils # Seg Neutrophils # Man 10.7 H Lymphocytes # (Manual) 0.5 L Monocytes # (Manual) Eosinophils # (Manual) Basophils # (Manual) PT INR APTT ABG pH ABG pO2 ABG HCO3 ABG O2 Saturation ABG Base Excess ABG Hemoglobin Oxyhemoglobin Sodium 146 H Potassium 3.4 L D Chloride Carbon Dioxide BUN Creatinine 0.5 L Glucose 165 H POC Glucose Lactic Acid Calcium Ionized Calcium Phosphorus Magnesium Total Bilirubin AST 57 H ALT Alkaline Phosphatase 166 H Ammonia Total Creatine Kinase CK-MB (CK-2) CK-MB (CK-2) Rel Index Total Protein Albumin 2.9 L Urine WBC (Auto) Vancomycin Trough Salicylates Acetaminophen Plasma/Serum Alcohol Crossmatch 11/27/19 11/27/19 11/27/19 04:28 04:28 04:42 WBC RBC Hgb Hct MCH RDW Plt Count Lymph % (Auto) [place] % (Auto) [place] # Baso # Seg Neutrophils % Seg Neuts % (Manual) Lymphocytes % (Manual) Monocytes % (Manual) Seg Neutrophils # Seg Neutrophils # Man Lymphocytes # (Manual) Monocytes # (Manual) Eosinophils # (Manual) Basophils # (Manual) PT INR APTT ABG pH 7.470 H ABG pO2 74.0 L ABG HCO3 33.8 H ABG O2 Saturation ABG Base Excess 9.1 H ABG Hemoglobin 8.7 L Oxyhemoglobin 94.7 L Sodium 146 H Potassium 2.9 L* Chloride Carbon Dioxide BUN 25 H Creatinine Glucose 213 H POC Glucose Lactic Acid Calcium Ionized Calcium Phosphorus 1.00 L Magnesium Total Bilirubin AST ALT Alkaline Phosphatase Ammonia Total Creatine Kinase CK-MB (CK-2) CK-MB (CK-2) Rel Index Total Protein Albumin Urine WBC (Auto) Vancomycin Trough Salicylates Acetaminophen Plasma/Serum Alcohol Crossmatch 11/27/19 11/27/19 11/27/19 05:37 12:20 15:46 WBC RBC Hgb Hct MCH RDW Plt Count Lymph % (Auto) [place] % (Auto) [place] # Baso # Seg Neutrophils % Seg Neuts % (Manual) Lymphocytes % (Manual) Monocytes % (Manual) Seg Neutrophils # Seg Neutrophils # Man Lymphocytes # (Manual) Monocytes # (Manual) Eosinophils # (Manual) Basophils # (Manual) PT INR APTT ABG pH ABG pO2 ABG HCO3 ABG O2 Saturation ABG Base Excess ABG Hemoglobin Oxyhemoglobin Sodium 146 H Potassium 3.5 L D Chloride Carbon Dioxide BUN 24 H Creatinine 0.6 L Glucose 187 H POC Glucose 117 H 220 H Lactic Acid Calcium Ionized Calcium Phosphorus Magnesium Total Bilirubin AST ALT Alkaline Phosphatase Ammonia Total Creatine Kinase CK-MB (CK-2) CK-MB (CK-2) Rel Index Total Protein Albumin Urine WBC (Auto) Vancomycin Trough Salicylates Acetaminophen Plasma/Serum Alcohol Crossmatch 11/27/19 11/28/19 11/28/19 17:28 05:00 05:02 WBC RBC Hgb Hct MCH RDW Plt Count Lymph % (Auto) [place] % (Auto) [place] # Baso # Seg Neutrophils % Seg Neuts % (Manual) Lymphocytes % (Manual) Monocytes % (Manual) Seg Neutrophils # Seg Neutrophils # Man Lymphocytes # (Manual) Monocytes # (Manual) Eosinophils # (Manual) Basophils # (Manual) PT INR APTT ABG pH ABG pO2 72.4 L ABG HCO3 33.6 H ABG O2 Saturation 94.1 L ABG Base Excess 7.3 H ABG Hemoglobin Oxyhemoglobin 91.8 L Sodium 146 H Potassium 3.3 L Chloride Carbon Dioxide BUN 25 H Creatinine 0.6 L Glucose 176 H POC Glucose 198 H Lactic Acid Calcium Ionized Calcium Phosphorus Magnesium Total Bilirubin AST ALT Alkaline Phosphatase Ammonia Total Creatine Kinase CK-MB (CK-2) CK-MB (CK-2) Rel Index Total Protein Albumin Urine WBC (Auto) Vancomycin Trough Salicylates Acetaminophen Plasma/Serum Alcohol Crossmatch 11/28/19 11/28/19 11/29/19 05:02 18:55 10:43 WBC 15.2 H 19.0 H RBC 3.06 L 3.01 L Hgb 8.3 L 8.3 L Hct 27.0 L 26.4 L MCH 27 L RDW 19.0 H 19.7 H Plt Count 479 H 611 H Lymph % (Auto) [place] % (Auto) [place] # Baso # Seg Neutrophils % Seg Neuts % (Manual) 92.0 H Lymphocytes % (Manual) 2.0 L Monocytes % (Manual) Seg Neutrophils # Seg Neutrophils # Man 14.0 H Lymphocytes # (Manual) 0.3 L Monocytes # (Manual) Eosinophils # (Manual) Basophils # (Manual) PT INR APTT ABG pH ABG pO2 ABG HCO3 ABG O2 Saturation ABG Base Excess ABG Hemoglobin Oxyhemoglobin Sodium Potassium Chloride Carbon Dioxide BUN Creatinine Glucose POC Glucose 138 H Lactic Acid Calcium Ionized Calcium Phosphorus Magnesium Total Bilirubin AST ALT Alkaline Phosphatase Ammonia Total Creatine Kinase CK-MB (CK-2) CK-MB (CK-2) Rel Index Total Protein Albumin Urine WBC (Auto) Vancomycin Trough Salicylates Acetaminophen Plasma/Serum Alcohol Crossmatch 11/29/19 11/29/19 11/29/19 10:43 12:27 19:25 WBC RBC Hgb Hct MCH RDW Plt Count Lymph % (Auto) [place] % (Auto) [place] # Baso # Seg Neutrophils % Seg Neuts % (Manual) Lymphocytes % (Manual) Monocytes % (Manual) Seg Neutrophils # Seg Neutrophils # Man Lymphocytes # (Manual) Monocytes # (Manual) Eosinophils # (Manual) Basophils # (Manual) PT INR APTT ABG pH ABG pO2 ABG HCO3 ABG O2 Saturation ABG Base Excess ABG Hemoglobin Oxyhemoglobin Sodium Potassium 2.8 L* Chloride Carbon Dioxide BUN 20 H Creatinine 0.5 L Glucose 121 H POC Glucose 128 H 120 H Lactic Acid Calcium Ionized Calcium Phosphorus Magnesium Total Bilirubin AST ALT Alkaline Phosphatase Ammonia Total Creatine Kinase CK-MB (CK-2) CK-MB (CK-2) Rel Index Total Protein Albumin Urine WBC (Auto) Vancomycin Trough Salicylates Acetaminophen Plasma/Serum Alcohol Crossmatch 11/29/19 11/30/19 11/30/19 23:46 04:10 05:02 WBC RBC Hgb Hct MCH RDW Plt Count Lymph % (Auto) [place] % (Auto) [place] # Baso # Seg Neutrophils % Seg Neuts % (Manual) Lymphocytes % (Manual) Monocytes % (Manual) Seg Neutrophils # Seg Neutrophils # Man Lymphocytes # (Manual) Monocytes # (Manual) Eosinophils # (Manual) Basophils # (Manual) PT INR APTT ABG pH ABG pO2 76.3 L ABG HCO3 32.5 H ABG O2 Saturation ABG Base Excess 6.9 H ABG Hemoglobin 8.0 L Oxyhemoglobin 92.6 L Sodium Potassium Chloride Carbon Dioxide BUN Creatinine Glucose POC Glucose 116 H 128 H Lactic Acid Calcium Ionized Calcium Phosphorus Magnesium Total Bilirubin AST ALT Alkaline Phosphatase Ammonia Total Creatine Kinase CK-MB (CK-2) CK-MB (CK-2) Rel Index Total Protein Albumin Urine WBC (Auto) Vancomycin Trough Salicylates Acetaminophen Plasma/Serum Alcohol Crossmatch 11/30/19 11/30/19 11/30/19 05:25 05:25 12:59 WBC 18.4 H RBC 3.10 L Hgb 8.5 L Hct 27.5 L MCH 27 L RDW 20.9 H Plt Count 691 H Lymph % (Auto) 7.1 L [place] % (Auto) 7.7 H [place] # 1.4 H Baso # Seg Neutrophils % 83.4 H Seg Neuts % (Manual) Lymphocytes % (Manual) Monocytes % (Manual) Seg Neutrophils # 15.4 H Seg Neutrophils # Man Lymphocytes # (Manual) Monocytes # (Manual) Eosinophils # (Manual) Basophils # (Manual) PT INR APTT ABG pH ABG pO2 ABG HCO3 ABG O2 Saturation ABG Base Excess ABG Hemoglobin Oxyhemoglobin Sodium 146 H Potassium Chloride 107.2 H Carbon Dioxide BUN Creatinine 0.5 L Glucose 132 H POC Glucose 124 H Lactic Acid Calcium Ionized Calcium Phosphorus Magnesium Total Bilirubin AST 246 H ALT 274 H Alkaline Phosphatase 203 H Ammonia Total Creatine Kinase CK-MB (CK-2) CK-MB (CK-2) Rel Index Total Protein 5.4 L Albumin 2.9 L Urine WBC (Auto) Vancomycin Trough Salicylates Acetaminophen Plasma/Serum Alcohol Crossmatch 11/30/19 12/01/19 12/01/19 17:53 00:05 05:10 WBC RBC Hgb Hct MCH RDW Plt Count Lymph % (Auto) [place] % (Auto) [place] # Baso # Seg Neutrophils % Seg Neuts % (Manual) Lymphocytes % (Manual) Monocytes % (Manual) Seg Neutrophils # Seg Neutrophils # Man Lymphocytes # (Manual) Monocytes # (Manual) Eosinophils # (Manual) Basophils # (Manual) PT INR APTT ABG pH ABG pO2 ABG HCO3 ABG O2 Saturation ABG Base Excess ABG Hemoglobin Oxyhemoglobin Sodium Potassium Chloride Carbon Dioxide BUN Creatinine Glucose POC Glucose 113 H 143 H 145 H Lactic Acid Calcium Ionized Calcium Phosphorus Magnesium Total Bilirubin AST ALT Alkaline Phosphatase Ammonia Total Creatine Kinase CK-MB (CK-2) CK-MB (CK-2) Rel Index Total Protein Albumin Urine WBC (Auto) Vancomycin Trough Salicylates Acetaminophen Plasma/Serum Alcohol Crossmatch 12/01/19 12/01/19 12/01/19 05:33 08:23 08:23 WBC 22.7 H RBC 2.88 L Hgb 7.9 L Hct 25.2 L MCH 27 L RDW 21.0 H Plt Count 732 H Lymph % (Auto) [place] % (Auto) [place] # Baso # Seg Neutrophils % Seg Neuts % (Manual) 91.0 H Lymphocytes % (Manual) 3.0 L Monocytes % (Manual) Seg Neutrophils # Seg Neutrophils # Man 20.7 H Lymphocytes # (Manual) 0.7 L Monocytes # (Manual) 1.1 H Eosinophils # (Manual) Basophils # (Manual) PT INR APTT ABG pH ABG pO2 68.6 L ABG HCO3 34.1 H ABG O2 Saturation ABG Base Excess 9.0 H ABG Hemoglobin 6.5 L Oxyhemoglobin 94.7 L Sodium Potassium Chloride Carbon Dioxide BUN Creatinine 0.5 L Glucose 125 H POC Glucose Lactic Acid Calcium Ionized Calcium Phosphorus Magnesium Total Bilirubin AST ALT Alkaline Phosphatase Ammonia Total Creatine Kinase CK-MB (CK-2) CK-MB (CK-2) Rel Index Total Protein Albumin Urine WBC (Auto) Vancomycin Trough Salicylates Acetaminophen Plasma/Serum Alcohol Crossmatch 12/01/19 12/01/19 12/01/19 13:21 17:54 20:59 WBC RBC Hgb Hct MCH RDW Plt Count Lymph % (Auto) [place] % (Auto) [place] # Baso # Seg Neutrophils % Seg Neuts % (Manual) Lymphocytes % (Manual) Monocytes % (Manual) Seg Neutrophils # Seg Neutrophils # Man Lymphocytes # (Manual) Monocytes # (Manual) Eosinophils # (Manual) Basophils # (Manual) PT INR APTT ABG pH ABG pO2 78.3 L ABG HCO3 33.8 H ABG O2 Saturation 94.9 L ABG Base Excess 7.9 H ABG Hemoglobin 11.5 L Oxyhemoglobin 92.3 L Sodium Potassium Chloride Carbon Dioxide BUN Creatinine Glucose POC Glucose 111 H 115 H Lactic Acid Calcium Ionized Calcium Phosphorus Magnesium Total Bilirubin AST ALT Alkaline Phosphatase Ammonia Total Creatine Kinase CK-MB (CK-2) CK-MB (CK-2) Rel Index Total Protein Albumin Urine WBC (Auto) Vancomycin Trough Salicylates Acetaminophen Plasma/Serum Alcohol Crossmatch 12/02/19 12/03/19 12/04/19 12:55 20:00 04:26 WBC 15.2 H RBC 2.69 L Hgb 7.4 L Hct 23.6 L MCH 27 L RDW 19.9 H Plt Count 838 H Lymph % (Auto) [place] % (Auto) [place] # Baso # Seg Neutrophils % Seg Neuts % (Manual) Lymphocytes % (Manual) Monocytes % (Manual) Seg Neutrophils # Seg Neutrophils # Man Lymphocytes # (Manual) Monocytes # (Manual) Eosinophils # (Manual) Basophils # (Manual) PT INR APTT ABG pH ABG pO2 68.3 L ABG HCO3 33.5 H ABG O2 Saturation 93.5 L ABG Base Excess 8.4 H ABG Hemoglobin 7.3 L Oxyhemoglobin 90.9 L Sodium Potassium Chloride Carbon Dioxide BUN Creatinine Glucose POC Glucose 107 H Lactic Acid Calcium Ionized Calcium Phosphorus Magnesium Total Bilirubin AST ALT Alkaline Phosphatase Ammonia Total Creatine Kinase CK-MB (CK-2) CK-MB (CK-2) Rel Index Total Protein Albumin Urine WBC (Auto) Vancomycin Trough Salicylates Acetaminophen Plasma/Serum Alcohol Crossmatch 12/04/19 12/04/19 12/04/19 04:26 07:45 12:02 WBC 15.9 H RBC 2.88 L Hgb 7.9 L Hct 25.1 L MCH RDW 20.4 H Plt Count 839 H Lymph % (Auto) 11.3 L [place] % (Auto) 15.2 H [place] # 2.4 H Baso # Seg Neutrophils % 72.4 H Seg Neuts % (Manual) Lymphocytes % (Manual) Monocytes % (Manual) Seg Neutrophils # 11.5 H Seg Neutrophils # Man Lymphocytes # (Manual) Monocytes # (Manual) Eosinophils # (Manual) Basophils # (Manual) PT INR APTT ABG pH ABG pO2 ABG HCO3 ABG O2 Saturation ABG Base Excess ABG Hemoglobin Oxyhemoglobin Sodium Potassium Chloride 96.5 L Carbon Dioxide BUN 21 H Creatinine 0.6 L Glucose 107 H POC Glucose 138 H Lactic Acid Calcium Ionized Calcium Phosphorus Magnesium Total Bilirubin AST ALT Alkaline Phosphatase Ammonia Total Creatine Kinase CK-MB (CK-2) CK-MB (CK-2) Rel Index Total Protein Albumin Urine WBC (Auto) Vancomycin Trough Salicylates Acetaminophen Plasma/Serum Alcohol Crossmatch 12/04/19 12/05/19 12/05/19 18:16 11:55 18:36 WBC RBC Hgb Hct MCH RDW Plt Count Lymph % (Auto) [place] % (Auto) [place] # Baso # Seg Neutrophils % Seg Neuts % (Manual) Lymphocytes % (Manual) Monocytes % (Manual) Seg Neutrophils # Seg Neutrophils # Man Lymphocytes # (Manual) Monocytes # (Manual) Eosinophils # (Manual) Basophils # (Manual) PT INR APTT ABG pH ABG pO2 ABG HCO3 ABG O2 Saturation ABG Base Excess ABG Hemoglobin Oxyhemoglobin Sodium Potassium Chloride Carbon Dioxide BUN Creatinine Glucose POC Glucose 135 H 125 H 135 H Lactic Acid Calcium Ionized Calcium Phosphorus Magnesium Total Bilirubin AST ALT Alkaline Phosphatase Ammonia Total Creatine Kinase CK-MB (CK-2) CK-MB (CK-2) Rel Index Total Protein Albumin Urine WBC (Auto) Vancomycin Trough Salicylates Acetaminophen Plasma/Serum Alcohol Crossmatch 12/05/19 12/06/19 12/06/19 23:30 04:14 05:43 WBC RBC Hgb Hct MCH RDW Plt Count Lymph % (Auto) [place] % (Auto) [place] # Baso # Seg Neutrophils % Seg Neuts % (Manual) Lymphocytes % (Manual) Monocytes % (Manual) Seg Neutrophils # Seg Neutrophils # Man Lymphocytes # (Manual) Monocytes # (Manual) Eosinophils # (Manual) Basophils # (Manual) PT INR APTT ABG pH ABG pO2 ABG HCO3 ABG O2 Saturation ABG Base Excess ABG Hemoglobin Oxyhemoglobin Sodium Potassium 5.6 H Chloride 95.0 L Carbon Dioxide BUN 48 H Creatinine 1.3 H D Glucose POC Glucose 126 H 121 H Lactic Acid Calcium Ionized Calcium Phosphorus Magnesium Total Bilirubin AST 89 H ALT 98 H Alkaline Phosphatase 476 H Ammonia Total Creatine Kinase CK-MB (CK-2) CK-MB (CK-2) Rel Index Total Protein Albumin 2.8 L Urine WBC (Auto) Vancomycin Trough Salicylates Acetaminophen Plasma/Serum Alcohol Crossmatch 12/06/19 12/06/19 12/07/19 10:39 14:34 00:19 WBC 17.3 H RBC 2.60 L Hgb 7.1 L Hct 22.7 L MCH 27 L RDW 20.1 H Plt Count 832 H Lymph % (Auto) [place] % (Auto) [place] # Baso # Seg Neutrophils % Seg Neuts % (Manual) Lymphocytes % (Manual) Monocytes % (Manual) Seg Neutrophils # Seg Neutrophils # Man Lymphocytes # (Manual) Monocytes # (Manual) Eosinophils # (Manual) Basophils # (Manual) PT INR APTT ABG pH ABG pO2 ABG HCO3 ABG O2 Saturation ABG Base Excess ABG Hemoglobin Oxyhemoglobin Sodium Potassium Chloride Carbon Dioxide BUN Creatinine Glucose POC Glucose 128 H 136 H Lactic Acid Calcium Ionized Calcium Phosphorus Magnesium Total Bilirubin AST ALT Alkaline Phosphatase Ammonia Total Creatine Kinase CK-MB (CK-2) CK-MB (CK-2) Rel Index Total Protein Albumin Urine WBC (Auto) Vancomycin Trough Salicylates Acetaminophen Plasma/Serum Alcohol Crossmatch 12/07/19 12/07/19 12/07/19 03:44 03:44 05:53 WBC 16.2 H RBC 2.56 L Hgb 7.1 L Hct 22.3 L MCH RDW 19.4 H Plt Count 782 H Lymph % (Auto) [place] % (Auto) [place] # Baso # Seg Neutrophils % Seg Neuts % (Manual) Lymphocytes % (Manual) Monocytes % (Manual) Seg Neutrophils # Seg Neutrophils # Man Lymphocytes # (Manual) Monocytes # (Manual) Eosinophils # (Manual) Basophils # (Manual) PT INR APTT ABG pH ABG pO2 ABG HCO3 ABG O2 Saturation ABG Base Excess ABG Hemoglobin Oxyhemoglobin Sodium Potassium Chloride 95.6 L Carbon Dioxide BUN 56 H Creatinine 1.4 H Glucose 120 H POC Glucose 128 H Lactic Acid Calcium 10.3 H Ionized Calcium Phosphorus Magnesium Total Bilirubin AST ALT Alkaline Phosphatase Ammonia Total Creatine Kinase CK-MB (CK-2) CK-MB (CK-2) Rel Index Total Protein Albumin Urine WBC (Auto) Vancomycin Trough Salicylates Acetaminophen Plasma/Serum Alcohol Crossmatch 12/07/19 12/07/19 12/08/19 12:54 23:47 00:20 WBC RBC Hgb Hct MCH RDW Plt Count Lymph % (Auto) [place] % (Auto) [place] # Baso # Seg Neutrophils % Seg Neuts % (Manual) Lymphocytes % (Manual) Monocytes % (Manual) Seg Neutrophils # Seg Neutrophils # Man Lymphocytes # (Manual) Monocytes # (Manual) Eosinophils # (Manual) Basophils # (Manual) PT INR APTT ABG pH ABG pO2 ABG HCO3 ABG O2 Saturation ABG Base Excess ABG Hemoglobin Oxyhemoglobin Sodium Potassium Chloride Carbon Dioxide BUN Creatinine Glucose POC Glucose 128 H 130 H 124 H Lactic Acid Calcium Ionized Calcium Phosphorus Magnesium Total Bilirubin AST ALT Alkaline Phosphatase Ammonia Total Creatine Kinase CK-MB (CK-2) CK-MB (CK-2) Rel Index Total Protein Albumin Urine WBC (Auto) Vancomycin Trough Salicylates Acetaminophen Plasma/Serum Alcohol Crossmatch 12/08/19 12/08/19 12/08/19 06:38 12:04 18:26 WBC RBC Hgb Hct MCH RDW Plt Count Lymph % (Auto) [place] % (Auto) [place] # Baso # Seg Neutrophils % Seg Neuts % (Manual) Lymphocytes % (Manual) Monocytes % (Manual) Seg Neutrophils # Seg Neutrophils # Man Lymphocytes # (Manual) Monocytes # (Manual) Eosinophils # (Manual) Basophils # (Manual) PT INR APTT ABG pH ABG pO2 ABG HCO3 ABG O2 Saturation ABG Base Excess ABG Hemoglobin Oxyhemoglobin Sodium Potassium Chloride Carbon Dioxide BUN Creatinine Glucose POC Glucose 137 H 129 H 150 H Lactic Acid Calcium Ionized Calcium Phosphorus Magnesium Total Bilirubin AST ALT Alkaline Phosphatase Ammonia Total Creatine Kinase CK-MB (CK-2) CK-MB (CK-2) Rel Index Total Protein Albumin Urine WBC (Auto) Vancomycin Trough Salicylates Acetaminophen Plasma/Serum Alcohol Crossmatch 12/09/19 12/09/19 12/09/19 00:56 05:34 06:13 WBC RBC Hgb Hct MCH RDW Plt Count Lymph % (Auto) [place] % (Auto) [place] # Baso # Seg Neutrophils % Seg Neuts % (Manual) Lymphocytes % (Manual) Monocytes % (Manual) Seg Neutrophils # Seg Neutrophils # Man Lymphocytes # (Manual) Monocytes # (Manual) Eosinophils # (Manual) Basophils # (Manual) PT INR APTT ABG pH ABG pO2 ABG HCO3 ABG O2 Saturation ABG Base Excess ABG Hemoglobin Oxyhemoglobin Sodium 146 H Potassium Chloride Carbon Dioxide BUN 66 H Creatinine 1.9 H Glucose 116 H POC Glucose 130 H 130 H Lactic Acid Calcium Ionized Calcium Phosphorus Magnesium Total Bilirubin AST ALT Alkaline Phosphatase Ammonia Total Creatine Kinase CK-MB (CK-2) CK-MB (CK-2) Rel Index Total Protein Albumin Urine WBC (Auto) Vancomycin Trough Salicylates Acetaminophen Plasma/Serum Alcohol Crossmatch 12/09/19 12/09/19 12/10/19 11:52 17:50 00:14 WBC RBC Hgb Hct MCH RDW Plt Count Lymph % (Auto) [place] % (Auto) [place] # Baso # Seg Neutrophils % Seg Neuts % (Manual) Lymphocytes % (Manual) Monocytes % (Manual) Seg Neutrophils # Seg Neutrophils # Man Lymphocytes # (Manual) Monocytes # (Manual) Eosinophils # (Manual) Basophils # (Manual) PT INR APTT ABG pH ABG pO2 ABG HCO3 ABG O2 Saturation ABG Base Excess ABG Hemoglobin Oxyhemoglobin Sodium Potassium Chloride Carbon Dioxide BUN Creatinine Glucose POC Glucose 135 H 120 H 116 H Lactic Acid Calcium Ionized Calcium Phosphorus Magnesium Total Bilirubin AST ALT Alkaline Phosphatase Ammonia Total Creatine Kinase CK-MB (CK-2) CK-MB (CK-2) Rel Index Total Protein Albumin Urine WBC (Auto) Vancomycin Trough Salicylates Acetaminophen Plasma/Serum Alcohol Crossmatch 12/10/19 12/10/19 12/10/19 05:38 11:38 17:34 WBC RBC Hgb Hct MCH RDW Plt Count Lymph % (Auto) [place] % (Auto) [place] # Baso # Seg Neutrophils % Seg Neuts % (Manual) Lymphocytes % (Manual) Monocytes % (Manual) Seg Neutrophils # Seg Neutrophils # Man Lymphocytes # (Manual) Monocytes # (Manual) Eosinophils # (Manual) Basophils # (Manual) PT INR APTT ABG pH ABG pO2 ABG HCO3 ABG O2 Saturation ABG Base Excess ABG Hemoglobin Oxyhemoglobin Sodium Potassium Chloride Carbon Dioxide BUN Creatinine Glucose POC Glucose 115 H 112 H 130 H Lactic Acid Calcium Ionized Calcium Phosphorus Magnesium Total Bilirubin AST ALT Alkaline Phosphatase Ammonia Total Creatine Kinase CK-MB (CK-2) CK-MB (CK-2) Rel Index Total Protein Albumin Urine WBC (Auto) Vancomycin Trough Salicylates Acetaminophen Plasma/Serum Alcohol Crossmatch 12/11/19 12/11/19 12/11/19 00:20 05:31 12:22 WBC RBC Hgb Hct MCH RDW Plt Count Lymph % (Auto) [place] % (Auto) [place] # Baso # Seg Neutrophils % Seg Neuts % (Manual) Lymphocytes % (Manual) Monocytes % (Manual) Seg Neutrophils # Seg Neutrophils # Man Lymphocytes # (Manual) Monocytes # (Manual) Eosinophils # (Manual) Basophils # (Manual) PT INR APTT ABG pH ABG pO2 ABG HCO3 ABG O2 Saturation ABG Base Excess ABG Hemoglobin Oxyhemoglobin Sodium Potassium Chloride Carbon Dioxide BUN Creatinine Glucose POC Glucose 124 H 132 H 128 H Lactic Acid Calcium Ionized Calcium Phosphorus Magnesium Total Bilirubin AST ALT Alkaline Phosphatase Ammonia Total Creatine Kinase CK-MB (CK-2) CK-MB (CK-2) Rel Index Total Protein Albumin Urine WBC (Auto) Vancomycin Trough Salicylates Acetaminophen Plasma/Serum Alcohol Crossmatch 12/11/19 12/11/19 12/12/19 18:04 23:42 03:51 WBC RBC Hgb Hct MCH RDW Plt Count Lymph % (Auto) [place] % (Auto) [place] # Baso # Seg Neutrophils % Seg Neuts % (Manual) Lymphocytes % (Manual) Monocytes % (Manual) Seg Neutrophils # Seg Neutrophils # Man Lymphocytes # (Manual) Monocytes # (Manual) Eosinophils # (Manual) Basophils # (Manual) PT INR APTT ABG pH ABG pO2 ABG HCO3 ABG O2 Saturation ABG Base Excess ABG Hemoglobin Oxyhemoglobin Sodium 149 H Potassium Chloride Carbon Dioxide 20 L D BUN 77 H Creatinine 2.8 H Glucose POC Glucose 133 H 154 H Lactic Acid Calcium Ionized Calcium Phosphorus Magnesium Total Bilirubin AST ALT Alkaline Phosphatase Ammonia Total Creatine Kinase CK-MB (CK-2) CK-MB (CK-2) Rel Index Total Protein Albumin Urine WBC (Auto) Vancomycin Trough Salicylates Acetaminophen Plasma/Serum Alcohol Crossmatch 12/12/19 12/12/19 12/12/19 05:18 05:26 10:30 WBC 18.0 H RBC 2.51 L Hgb 6.8 L Hct 22.0 L MCH 27 L RDW 19.9 H Plt Count 582 H Lymph % (Auto) [place] % (Auto) [place] # Baso # Seg Neutrophils % Seg Neuts % (Manual) Lymphocytes % (Manual) Monocytes % (Manual) Seg Neutrophils # Seg Neutrophils # Man Lymphocytes # (Manual) Monocytes # (Manual) Eosinophils # (Manual) Basophils # (Manual) PT INR APTT ABG pH ABG pO2 ABG HCO3 ABG O2 Saturation ABG Base Excess ABG Hemoglobin Oxyhemoglobin Sodium Potassium Chloride Carbon Dioxide BUN Creatinine Glucose POC Glucose 135 H Lactic Acid Calcium Ionized Calcium Phosphorus Magnesium Total Bilirubin AST ALT Alkaline Phosphatase Ammonia Total Creatine Kinase CK-MB (CK-2) CK-MB (CK-2) Rel Index Total Protein Albumin Urine WBC (Auto) Vancomycin Trough Salicylates Acetaminophen Plasma/Serum Alcohol Crossmatch See Detail 12/12/19 12/12/19 12/12/19 11:44 18:10 23:21 WBC RBC Hgb Hct MCH RDW Plt Count Lymph % (Auto) [place] % (Auto) [place] # Baso # Seg Neutrophils % Seg Neuts % (Manual) Lymphocytes % (Manual) Monocytes % (Manual) Seg Neutrophils # Seg Neutrophils # Man Lymphocytes # (Manual) Monocytes # (Manual) Eosinophils # (Manual) Basophils # (Manual) PT INR APTT ABG pH ABG pO2 ABG HCO3 ABG O2 Saturation ABG Base Excess ABG Hemoglobin Oxyhemoglobin Sodium Potassium Chloride Carbon Dioxide BUN Creatinine Glucose POC Glucose 108 H 107 H 126 H Lactic Acid Calcium Ionized Calcium Phosphorus Magnesium Total Bilirubin AST ALT Alkaline Phosphatase Ammonia Total Creatine Kinase CK-MB (CK-2) CK-MB (CK-2) Rel Index Total Protein Albumin Urine WBC (Auto) Vancomycin Trough Salicylates Acetaminophen Plasma/Serum Alcohol Crossmatch 12/13/19 12/13/19 12/13/19 05:41 07:48 07:48 WBC 38.3 H RBC 2.37 L Hgb 6.3 L Hct 20.9 L MCH 27 L RDW 20.2 H Plt Count 546 H Lymph % (Auto) [place] % (Auto) [place] # Baso # Seg Neutrophils % Seg Neuts % (Manual) 93.0 H Lymphocytes % (Manual) 1.0 L Monocytes % (Manual) Seg Neutrophils # Seg Neutrophils # Man 35.6 H Lymphocytes # (Manual) 0.4 L Monocytes # (Manual) Eosinophils # (Manual) Basophils # (Manual) 0.4 H PT INR APTT ABG pH ABG pO2 ABG HCO3 ABG O2 Saturation ABG Base Excess ABG Hemoglobin Oxyhemoglobin Sodium 152 H Potassium 3.1 L D Chloride 111.9 H Carbon Dioxide 21 L BUN 53 H Creatinine 1.9 H Glucose 141 H POC Glucose 128 H Lactic Acid Calcium Ionized Calcium Phosphorus Magnesium Total Bilirubin AST ALT Alkaline Phosphatase 316 H Ammonia Total Creatine Kinase CK-MB (CK-2) CK-MB (CK-2) Rel Index Total Protein Albumin 2.4 L Urine WBC (Auto) Vancomycin Trough Salicylates Acetaminophen Plasma/Serum Alcohol Crossmatch 12/13/19 12/13/19 12/14/19 18:17 23:19 05:36 WBC RBC Hgb Hct MCH RDW Plt Count Lymph % (Auto) [place] % (Auto) [place] # Baso # Seg Neutrophils % Seg Neuts % (Manual) Lymphocytes % (Manual) Monocytes % (Manual) Seg Neutrophils # Seg Neutrophils # Man Lymphocytes # (Manual) Monocytes # (Manual) Eosinophils # (Manual) Basophils # (Manual) PT INR APTT ABG pH ABG pO2 ABG HCO3 ABG O2 Saturation ABG Base Excess ABG Hemoglobin Oxyhemoglobin Sodium Potassium Chloride Carbon Dioxide BUN Creatinine Glucose POC Glucose 141 H 158 H 182 H Lactic Acid Calcium Ionized Calcium Phosphorus Magnesium Total Bilirubin AST ALT Alkaline Phosphatase Ammonia Total Creatine Kinase CK-MB (CK-2) CK-MB (CK-2) Rel Index Total Protein Albumin Urine WBC (Auto) Vancomycin Trough Salicylates Acetaminophen Plasma/Serum Alcohol Crossmatch 12/14/19 12/14/19 12/14/19 08:48 08:48 10:31 WBC 33.3 H RBC 2.70 L Hgb 7.9 L 8.0 L Hct 25.3 L 24.0 L MCH RDW 19.2 H Plt Count 476 H Lymph % (Auto) [place] % (Auto) [place] # Baso # Seg Neutrophils % Seg Neuts % (Manual) Lymphocytes % (Manual) Monocytes % (Manual) Seg Neutrophils # Seg Neutrophils # Man Lymphocytes # (Manual) Monocytes # (Manual) Eosinophils # (Manual) Basophils # (Manual) PT INR APTT ABG pH ABG pO2 ABG HCO3 ABG O2 Saturation ABG Base Excess ABG Hemoglobin Oxyhemoglobin Sodium 153 H Potassium 2.5 L* Chloride 114.9 H Carbon Dioxide 20 L BUN 38 H Creatinine 1.4 H Glucose 177 H POC Glucose Lactic Acid Calcium Ionized Calcium Phosphorus Magnesium Total Bilirubin AST ALT Alkaline Phosphatase Ammonia Total Creatine Kinase CK-MB (CK-2) CK-MB (CK-2) Rel Index Total Protein Albumin Urine WBC (Auto) Vancomycin Trough Salicylates Acetaminophen Plasma/Serum Alcohol Crossmatch 12/14/19 12/14/19 12/14/19 12:57 16:15 17:50 WBC RBC Hgb Hct MCH RDW Plt Count Lymph % (Auto) [place] % (Auto) [place] # Baso # Seg Neutrophils % Seg Neuts % (Manual) Lymphocytes % (Manual) Monocytes % (Manual) Seg Neutrophils # Seg Neutrophils # Man Lymphocytes # (Manual) Monocytes # (Manual) Eosinophils # (Manual) Basophils # (Manual) PT INR APTT ABG pH ABG pO2 73.6 L ABG HCO3 ABG O2 Saturation ABG Base Excess ABG Hemoglobin 7.6 L Oxyhemoglobin 94.0 L Sodium Potassium Chloride Carbon Dioxide BUN Creatinine Glucose POC Glucose 174 H 150 H Lactic Acid Calcium Ionized Calcium Phosphorus Magnesium Total Bilirubin AST ALT Alkaline Phosphatase Ammonia Total Creatine Kinase CK-MB (CK-2) CK-MB (CK-2) Rel Index Total Protein Albumin Urine WBC (Auto) Vancomycin Trough Salicylates Acetaminophen Plasma/Serum Alcohol Crossmatch 12/15/19 12/15/19 12/15/19 00:28 05:27 07:23 WBC 30.0 H RBC 3.11 L Hgb 8.6 L Hct 27.7 L MCH RDW 20.0 H Plt Count 473 H Lymph % (Auto) [place] % (Auto) [place] # Baso # Seg Neutrophils % Seg Neuts % (Manual) Lymphocytes % (Manual) Monocytes % (Manual) Seg Neutrophils # Seg Neutrophils # Man Lymphocytes # (Manual) Monocytes # (Manual) Eosinophils # (Manual) Basophils # (Manual) PT INR APTT ABG pH ABG pO2 ABG HCO3 ABG O2 Saturation ABG Base Excess ABG Hemoglobin Oxyhemoglobin Sodium Potassium Chloride Carbon Dioxide BUN Creatinine Glucose POC Glucose 167 H 148 H Lactic Acid Calcium Ionized Calcium Phosphorus Magnesium Total Bilirubin AST ALT Alkaline Phosphatase Ammonia Total Creatine Kinase CK-MB (CK-2) CK-MB (CK-2) Rel Index Total Protein Albumin Urine WBC (Auto) Vancomycin Trough Salicylates Acetaminophen Plasma/Serum Alcohol Crossmatch 12/15/19 12/15/19 12/15/19 07:23 12:21 17:41 WBC RBC Hgb Hct MCH RDW Plt Count Lymph % (Auto) [place] % (Auto) [place] # Baso # Seg Neutrophils % Seg Neuts % (Manual) Lymphocytes % (Manual) Monocytes % (Manual) Seg Neutrophils # Seg Neutrophils # Man Lymphocytes # (Manual) Monocytes # (Manual) Eosinophils # (Manual) Basophils # (Manual) PT INR APTT ABG pH ABG pO2 ABG HCO3 ABG O2 Saturation ABG Base Excess ABG Hemoglobin Oxyhemoglobin Sodium 147 H Potassium 3.5 L D Chloride 111.2 H Carbon Dioxide 19 L BUN 29 H Creatinine Glucose 126 H POC Glucose 154 H 144 H Lactic Acid Calcium Ionized Calcium Phosphorus Magnesium Total Bilirubin AST ALT Alkaline Phosphatase Ammonia Total Creatine Kinase CK-MB (CK-2) CK-MB (CK-2) Rel Index Total Protein Albumin Urine WBC (Auto) Vancomycin Trough Salicylates Acetaminophen Plasma/Serum Alcohol Crossmatch 12/16/19 12/16/19 12/16/19 00:22 05:30 05:44 WBC 30.8 H RBC 2.58 L Hgb 7.1 L Hct 22.7 L MCH RDW 19.6 H Plt Count 451 H Lymph % (Auto) [place] % (Auto) [place] # Baso # Seg Neutrophils % Seg Neuts % (Manual) Lymphocytes % (Manual) Monocytes % (Manual) Seg Neutrophils # Seg Neutrophils # Man Lymphocytes # (Manual) Monocytes # (Manual) Eosinophils # (Manual) Basophils # (Manual) PT INR APTT ABG pH ABG pO2 ABG HCO3 ABG O2 Saturation ABG Base Excess ABG Hemoglobin Oxyhemoglobin Sodium Potassium Chloride Carbon Dioxide BUN Creatinine Glucose POC Glucose 139 H 126 H Lactic Acid Calcium Ionized Calcium Phosphorus Magnesium Total Bilirubin AST ALT Alkaline Phosphatase Ammonia Total Creatine Kinase CK-MB (CK-2) CK-MB (CK-2) Rel Index Total Protein Albumin Urine WBC (Auto) Vancomycin Trough Salicylates Acetaminophen Plasma/Serum Alcohol Crossmatch 12/16/19 12/16/19 12/16/19 05:44 11:48 17:37 WBC RBC Hgb Hct MCH RDW Plt Count Lymph % (Auto) [place] % (Auto) [place] # Baso # Seg Neutrophils % Seg Neuts % (Manual) Lymphocytes % (Manual) Monocytes % (Manual) Seg Neutrophils # Seg Neutrophils # Man Lymphocytes # (Manual) Monocytes # (Manual) Eosinophils # (Manual) Basophils # (Manual) PT INR APTT ABG pH ABG pO2 ABG HCO3 ABG O2 Saturation ABG Base Excess ABG Hemoglobin Oxyhemoglobin Sodium Potassium 3.4 L Chloride 109.2 H Carbon Dioxide 19 L BUN 27 H Creatinine Glucose 124 H POC Glucose 125 H 148 H Lactic Acid Calcium Ionized Calcium Phosphorus Magnesium Total Bilirubin AST ALT Alkaline Phosphatase Ammonia Total Creatine Kinase CK-MB (CK-2) CK-MB (CK-2) Rel Index Total Protein Albumin Urine WBC (Auto) Vancomycin Trough Salicylates Acetaminophen Plasma/Serum Alcohol Crossmatch 12/16/19 12/17/19 12/17/19 23:43 05:28 12:47 WBC RBC Hgb Hct MCH RDW Plt Count Lymph % (Auto) [place] % (Auto) [place] # Baso # Seg Neutrophils % Seg Neuts % (Manual) Lymphocytes % (Manual) Monocytes % (Manual) Seg Neutrophils # Seg Neutrophils # Man Lymphocytes # (Manual) Monocytes # (Manual) Eosinophils # (Manual) Basophils # (Manual) PT INR APTT ABG pH ABG pO2 ABG HCO3 ABG O2 Saturation ABG Base Excess ABG Hemoglobin Oxyhemoglobin Sodium Potassium Chloride Carbon Dioxide BUN Creatinine Glucose POC Glucose 142 H 140 H 125 H Lactic Acid Calcium Ionized Calcium Phosphorus Magnesium Total Bilirubin AST ALT Alkaline Phosphatase Ammonia Total Creatine Kinase CK-MB (CK-2) CK-MB (CK-2) Rel Index Total Protein Albumin Urine WBC (Auto) Vancomycin Trough Salicylates Acetaminophen Plasma/Serum Alcohol Crossmatch 12/17/19 12/17/19 12/17/19 17:05 18:00 Unknown WBC RBC Hgb Hct MCH RDW Plt Count Lymph % (Auto) [place] % (Auto) [place] # Baso # Seg Neutrophils % Seg Neuts % (Manual) Lymphocytes % (Manual) Monocytes % (Manual) Seg Neutrophils # Seg Neutrophils # Man Lymphocytes # (Manual) Monocytes # (Manual) Eosinophils # (Manual) Basophils # (Manual) PT INR APTT ABG pH ABG pO2 68.1 L ABG HCO3 ABG O2 Saturation 93.7 L ABG Base Excess ABG Hemoglobin 5.0 L Oxyhemoglobin 91.7 L Sodium Potassium Chloride Carbon Dioxide BUN Creatinine Glucose POC Glucose 140 H Lactic Acid Calcium Ionized Calcium Phosphorus Magnesium Total Bilirubin AST ALT Alkaline Phosphatase Ammonia Total Creatine Kinase CK-MB (CK-2) CK-MB (CK-2) Rel Index Total Protein Albumin Urine WBC (Auto) Vancomycin Trough Salicylates Acetaminophen Plasma/Serum Alcohol Crossmatch 12/18/19 12/18/19 12/18/19 00:16 04:53 04:53 WBC 28.6 H RBC 2.27 L Hgb 6.3 L Hct 19.5 L* MCH RDW 20.0 H Plt Count 497 H Lymph % (Auto) [place] % (Auto) [place] # Baso # Seg Neutrophils % Seg Neuts % (Manual) Lymphocytes % (Manual) Monocytes % (Manual) Seg Neutrophils # Seg Neutrophils # Man Lymphocytes # (Manual) Monocytes # (Manual) Eosinophils # (Manual) Basophils # (Manual) PT INR APTT ABG pH ABG pO2 ABG HCO3 ABG O2 Saturation ABG Base Excess ABG Hemoglobin Oxyhemoglobin Sodium Potassium Chloride 107.9 H Carbon Dioxide 20 L BUN 27 H Creatinine 0.6 L Glucose 116 H POC Glucose 123 H Lactic Acid Calcium Ionized Calcium Phosphorus Magnesium Total Bilirubin AST ALT Alkaline Phosphatase Ammonia Total Creatine Kinase CK-MB (CK-2) CK-MB (CK-2) Rel Index Total Protein Albumin Urine WBC (Auto) Vancomycin Trough Salicylates Acetaminophen Plasma/Serum Alcohol Crossmatch 12/18/19 12/18/19 12/18/19 06:38 11:22 12:08 WBC RBC Hgb Hct MCH RDW Plt Count Lymph % (Auto) [place] % (Auto) [place] # Baso # Seg Neutrophils % Seg Neuts % (Manual) Lymphocytes % (Manual) Monocytes % (Manual) Seg Neutrophils # Seg Neutrophils # Man Lymphocytes # (Manual) Monocytes # (Manual) Eosinophils # (Manual) Basophils # (Manual) PT INR APTT ABG pH ABG pO2 ABG HCO3 ABG O2 Saturation ABG Base Excess ABG Hemoglobin Oxyhemoglobin Sodium Potassium Chloride Carbon Dioxide BUN Creatinine Glucose POC Glucose 120 H 127 H Lactic Acid Calcium Ionized Calcium Phosphorus Magnesium Total Bilirubin AST ALT Alkaline Phosphatase Ammonia Total Creatine Kinase CK-MB (CK-2) CK-MB (CK-2) Rel Index Total Protein Albumin Urine WBC (Auto) Vancomycin Trough Salicylates Acetaminophen Plasma/Serum Alcohol Crossmatch See Detail 12/18/19 12/18/19 12/18/19 14:05 17:49 23:53 WBC RBC Hgb Hct MCH RDW Plt Count Lymph % (Auto) [place] % (Auto) [place] # Baso # Seg Neutrophils % Seg Neuts % (Manual) Lymphocytes % (Manual) Monocytes % (Manual) Seg Neutrophils # Seg Neutrophils # Man Lymphocytes # (Manual) Monocytes # (Manual) Eosinophils # (Manual) Basophils # (Manual) PT INR APTT ABG pH 7.267 L ABG pO2 69.8 L ABG HCO3 ABG O2 Saturation 88.4 L ABG Base Excess ABG Hemoglobin 7.1 L Oxyhemoglobin 86.4 L Sodium Potassium Chloride Carbon Dioxide BUN Creatinine Glucose POC Glucose 157 H 128 H Lactic Acid Calcium Ionized Calcium Phosphorus Magnesium Total Bilirubin AST ALT Alkaline Phosphatase Ammonia Total Creatine Kinase CK-MB (CK-2) CK-MB (CK-2) Rel Index Total Protein Albumin Urine WBC (Auto) Vancomycin Trough Salicylates Acetaminophen Plasma/Serum Alcohol Crossmatch 12/19/19 12/19/19 12/19/19 03:37 03:37 05:25 WBC 31.3 H RBC 2.60 L Hgb 7.6 L Hct 23.0 L MCH RDW 19.4 H Plt Count 530 H Lymph % (Auto) [place] % (Auto) [place] # Baso # Seg Neutrophils % Seg Neuts % (Manual) Lymphocytes % (Manual) Monocytes % (Manual) Seg Neutrophils # Seg Neutrophils # Man Lymphocytes # (Manual) Monocytes # (Manual) Eosinophils # (Manual) Basophils # (Manual) PT INR APTT ABG pH ABG pO2 ABG HCO3 ABG O2 Saturation ABG Base Excess ABG Hemoglobin Oxyhemoglobin Sodium Potassium Chloride Carbon Dioxide 18 L BUN 36 H Creatinine Glucose 111 H POC Glucose 123 H Lactic Acid Calcium Ionized Calcium Phosphorus Magnesium Total Bilirubin AST ALT Alkaline Phosphatase Ammonia Total Creatine Kinase CK-MB (CK-2) CK-MB (CK-2) Rel Index Total Protein Albumin Urine WBC (Auto) Vancomycin Trough Salicylates Acetaminophen Plasma/Serum Alcohol Crossmatch 12/19/19 12/19/19 12/20/19 12:59 18:33 00:00 WBC RBC Hgb Hct MCH RDW Plt Count Lymph % (Auto) [place] % (Auto) [place] # Baso # Seg Neutrophils % Seg Neuts % (Manual) Lymphocytes % (Manual) Monocytes % (Manual) Seg Neutrophils # Seg Neutrophils # Man Lymphocytes # (Manual) Monocytes # (Manual) Eosinophils # (Manual) Basophils # (Manual) PT INR APTT ABG pH ABG pO2 ABG HCO3 ABG O2 Saturation ABG Base Excess ABG Hemoglobin Oxyhemoglobin Sodium Potassium Chloride Carbon Dioxide BUN Creatinine Glucose POC Glucose 130 H 118 H 135 H Lactic Acid Calcium Ionized Calcium Phosphorus Magnesium Total Bilirubin AST ALT Alkaline Phosphatase Ammonia Total Creatine Kinase CK-MB (CK-2) CK-MB (CK-2) Rel Index Total Protein Albumin Urine WBC (Auto) Vancomycin Trough Salicylates Acetaminophen Plasma/Serum Alcohol Crossmatch 12/20/19 12/20/19 12/20/19 05:46 12:31 18:07 WBC RBC Hgb Hct MCH RDW Plt Count Lymph % (Auto) [place] % (Auto) [place] # Baso # Seg Neutrophils % Seg Neuts % (Manual) Lymphocytes % (Manual) Monocytes % (Manual) Seg Neutrophils # Seg Neutrophils # Man Lymphocytes # (Manual) Monocytes # (Manual) Eosinophils # (Manual) Basophils # (Manual) PT INR APTT ABG pH ABG pO2 ABG HCO3 ABG O2 Saturation ABG Base Excess ABG Hemoglobin Oxyhemoglobin Sodium Potassium Chloride Carbon Dioxide BUN Creatinine Glucose POC Glucose 131 H 128 H 134 H Lactic Acid Calcium Ionized Calcium Phosphorus Magnesium Total Bilirubin AST ALT Alkaline Phosphatase Ammonia Total Creatine Kinase CK-MB (CK-2) CK-MB (CK-2) Rel Index Total Protein Albumin Urine WBC (Auto) Vancomycin Trough Salicylates Acetaminophen Plasma/Serum Alcohol Crossmatch 12/21/19 12/21/19 12/21/19 03:28 03:28 07:21 WBC 29.4 H RBC 2.30 L Hgb 6.8 L Hct 20.2 L MCH RDW 20.2 H Plt Count 746 H Lymph % (Auto) [place] % (Auto) [place] # Baso # Seg Neutrophils % Seg Neuts % (Manual) 85.0 H Lymphocytes % (Manual) 8.0 L Monocytes % (Manual) Seg Neutrophils # Seg Neutrophils # Man 25.0 H Lymphocytes # (Manual) Monocytes # (Manual) 1.5 H Eosinophils # (Manual) 0.6 H Basophils # (Manual) PT INR APTT ABG pH ABG pO2 ABG HCO3 ABG O2 Saturation ABG Base Excess ABG Hemoglobin Oxyhemoglobin Sodium Potassium Chloride Carbon Dioxide 17 L BUN 57 H Creatinine 1.4 H D Glucose POC Glucose 124 H Lactic Acid Calcium Ionized Calcium Phosphorus Magnesium Total Bilirubin AST ALT Alkaline Phosphatase Ammonia Total Creatine Kinase CK-MB (CK-2) CK-MB (CK-2) Rel Index Total Protein Albumin Urine WBC (Auto) Vancomycin Trough Salicylates Acetaminophen Plasma/Serum Alcohol Crossmatch 12/21/19 12/21/19 12/21/19 08:56 12:06 14:53 WBC RBC Hgb 7.2 L Hct 22.9 L MCH RDW Plt Count Lymph % (Auto) [place] % (Auto) [place] # Baso # Seg Neutrophils % Seg Neuts % (Manual) Lymphocytes % (Manual) Monocytes % (Manual) Seg Neutrophils # Seg Neutrophils # Man Lymphocytes # (Manual) Monocytes # (Manual) Eosinophils # (Manual) Basophils # (Manual) PT INR APTT ABG pH ABG pO2 ABG HCO3 ABG O2 Saturation ABG Base Excess ABG Hemoglobin Oxyhemoglobin Sodium Potassium Chloride Carbon Dioxide BUN Creatinine Glucose POC Glucose 116 H Lactic Acid Calcium Ionized Calcium Phosphorus Magnesium Total Bilirubin AST ALT Alkaline Phosphatase Ammonia Total Creatine Kinase CK-MB (CK-2) CK-MB (CK-2) Rel Index Total Protein Albumin Urine WBC (Auto) Vancomycin Trough 33.8 H Salicylates Acetaminophen Plasma/Serum Alcohol Crossmatch 12/21/19 12/21/19 12/21/19 14:54 17:27 23:49 WBC RBC Hgb Hct MCH RDW Plt Count Lymph % (Auto) [place] % (Auto) [place] # Baso # Seg Neutrophils % Seg Neuts % (Manual) Lymphocytes % (Manual) Monocytes % (Manual) Seg Neutrophils # Seg Neutrophils # Man Lymphocytes # (Manual) Monocytes # (Manual) Eosinophils # (Manual) Basophils # (Manual) PT INR APTT ABG pH ABG pO2 ABG HCO3 ABG O2 Saturation ABG Base Excess ABG Hemoglobin Oxyhemoglobin Sodium Potassium Chloride Carbon Dioxide BUN Creatinine Glucose POC Glucose 145 H 127 H Lactic Acid Calcium Ionized Calcium Phosphorus Magnesium Total Bilirubin AST ALT Alkaline Phosphatase Ammonia Total Creatine Kinase CK-MB (CK-2) CK-MB (CK-2) Rel Index Total Protein Albumin Urine WBC (Auto) Vancomycin Trough Salicylates Acetaminophen Plasma/Serum Alcohol Crossmatch See Detail 12/22/19 12/22/19 12/22/19 04:43 05:56 08:40 WBC RBC Hgb Hct MCH RDW Plt Count Lymph % (Auto) [place] % (Auto) [place] # Baso # Seg Neutrophils % Seg Neuts % (Manual) Lymphocytes % (Manual) Monocytes % (Manual) Seg Neutrophils # Seg Neutrophils # Man Lymphocytes # (Manual) Monocytes # (Manual) Eosinophils # (Manual) Basophils # (Manual) PT INR APTT ABG pH ABG pO2 75.6 L ABG HCO3 ABG O2 Saturation ABG Base Excess -2.6 L ABG Hemoglobin 6.8 L Oxyhemoglobin 94.6 L Sodium Potassium Chloride Carbon Dioxide 17 L BUN 60 H Creatinine 1.4 H Glucose 126 H POC Glucose 153 H Lactic Acid Calcium Ionized Calcium Phosphorus Magnesium Total Bilirubin AST ALT Alkaline Phosphatase Ammonia Total Creatine Kinase CK-MB (CK-2) CK-MB (CK-2) Rel Index Total Protein Albumin Urine WBC (Auto) Vancomycin Trough Salicylates Acetaminophen Plasma/Serum Alcohol Crossmatch 12/22/19 12/22/19 12/23/19 12:07 17:49 04:30 WBC 22.4 H RBC 2.68 L Hgb 7.6 L Hct 22.9 L MCH RDW 19.9 H Plt Count 998 H Lymph % (Auto) [place] % (Auto) [place] # Baso # Seg Neutrophils % Seg Neuts % (Manual) 88.0 H Lymphocytes % (Manual) 2.0 L Monocytes % (Manual) 9.0 H Seg Neutrophils # Seg Neutrophils # Man 19.7 H Lymphocytes # (Manual) 0.4 L Monocytes # (Manual) 2.0 H Eosinophils # (Manual) Basophils # (Manual) PT INR APTT ABG pH ABG pO2 ABG HCO3 ABG O2 Saturation ABG Base Excess ABG Hemoglobin Oxyhemoglobin Sodium Potassium Chloride Carbon Dioxide BUN Creatinine Glucose POC Glucose 140 H 116 H Lactic Acid Calcium Ionized Calcium Phosphorus Magnesium Total Bilirubin AST ALT Alkaline Phosphatase Ammonia Total Creatine Kinase CK-MB (CK-2) CK-MB (CK-2) Rel Index Total Protein Albumin Urine WBC (Auto) Vancomycin Trough Salicylates Acetaminophen Plasma/Serum Alcohol Crossmatch 12/23/19 12/23/19 12/23/19 04:30 12:00 18:06 WBC RBC Hgb Hct MCH RDW Plt Count Lymph % (Auto) [place] % (Auto) [place] # Baso # Seg Neutrophils % Seg Neuts % (Manual) Lymphocytes % (Manual) Monocytes % (Manual) Seg Neutrophils # Seg Neutrophils # Man Lymphocytes # (Manual) Monocytes # (Manual) Eosinophils # (Manual) Basophils # (Manual) PT INR APTT ABG pH ABG pO2 ABG HCO3 ABG O2 Saturation ABG Base Excess ABG Hemoglobin Oxyhemoglobin Sodium Potassium 5.2 H Chloride Carbon Dioxide 21 L BUN 69 H Creatinine 1.5 H Glucose 117 H POC Glucose 128 H 138 H Lactic Acid Calcium Ionized Calcium Phosphorus Magnesium Total Bilirubin AST ALT Alkaline Phosphatase Ammonia Total Creatine Kinase CK-MB (CK-2) CK-MB (CK-2) Rel Index Total Protein Albumin Urine WBC (Auto) Vancomycin Trough Salicylates Acetaminophen Plasma/Serum Alcohol Crossmatch 12/23/19 12/24/19 12/24/19 23:46 04:31 05:08 WBC RBC Hgb Hct MCH RDW Plt Count Lymph % (Auto) [place] % (Auto) [place] # Baso # Seg Neutrophils % Seg Neuts % (Manual) Lymphocytes % (Manual) Monocytes % (Manual) Seg Neutrophils # Seg Neutrophils # Man Lymphocytes # (Manual) Monocytes # (Manual) Eosinophils # (Manual) Basophils # (Manual) PT INR APTT ABG pH ABG pO2 ABG HCO3 ABG O2 Saturation ABG Base Excess ABG Hemoglobin Oxyhemoglobin Sodium Potassium 5.3 H Chloride 107.6 H Carbon Dioxide 20 L BUN 72 H Creatinine 1.6 H Glucose 120 H POC Glucose 120 H 140 H Lactic Acid Calcium Ionized Calcium Phosphorus Magnesium Total Bilirubin AST ALT Alkaline Phosphatase Ammonia Total Creatine Kinase CK-MB (CK-2) CK-MB (CK-2) Rel Index Total Protein Albumin Urine WBC (Auto) Vancomycin Trough Salicylates Acetaminophen Plasma/Serum Alcohol Crossmatch 12/24/19 12/24/19 12/25/19 11:58 17:49 03:47 WBC 36.2 H RBC 2.92 L Hgb 8.4 L Hct 26.1 L MCH RDW 20.2 H Plt Count 942 H Lymph % (Auto) [place] % (Auto) [place] # Baso # Seg Neutrophils % Seg Neuts % (Manual) 97.5 H Lymphocytes % (Manual) 1.0 L Monocytes % (Manual) Seg Neutrophils # Seg Neutrophils # Man 35.3 H Lymphocytes # (Manual) 0.4 L Monocytes # (Manual) Eosinophils # (Manual) Basophils # (Manual) PT INR APTT ABG pH ABG pO2 ABG HCO3 ABG O2 Saturation ABG Base Excess ABG Hemoglobin Oxyhemoglobin Sodium Potassium Chloride Carbon Dioxide BUN Creatinine Glucose POC Glucose 146 H 131 H Lactic Acid Calcium Ionized Calcium Phosphorus Magnesium Total Bilirubin AST ALT Alkaline Phosphatase Ammonia Total Creatine Kinase CK-MB (CK-2) CK-MB (CK-2) Rel Index Total Protein Albumin Urine WBC (Auto) Vancomycin Trough Salicylates Acetaminophen Plasma/Serum Alcohol Crossmatch 12/25/19 12/25/19 12/25/19 03:47 05:30 12:23 WBC RBC Hgb Hct MCH RDW Plt Count Lymph % (Auto) [place] % (Auto) [place] # Baso # Seg Neutrophils % Seg Neuts % (Manual) Lymphocytes % (Manual) Monocytes % (Manual) Seg Neutrophils # Seg Neutrophils # Man Lymphocytes # (Manual) Monocytes # (Manual) Eosinophils # (Manual) Basophils # (Manual) PT INR APTT ABG pH ABG pO2 ABG HCO3 ABG O2 Saturation ABG Base Excess ABG Hemoglobin Oxyhemoglobin Sodium Potassium Chloride Carbon Dioxide 15 L BUN 70 H Creatinine 1.7 H Glucose 153 H POC Glucose 169 H 135 H Lactic Acid Calcium Ionized Calcium Phosphorus Magnesium Total Bilirubin AST ALT Alkaline Phosphatase Ammonia Total Creatine Kinase CK-MB (CK-2) CK-MB (CK-2) Rel Index Total Protein Albumin Urine WBC (Auto) Vancomycin Trough Salicylates Acetaminophen Plasma/Serum Alcohol Crossmatch 12/25/19 12/25/19 12/26/19 17:37 23:29 09:47 WBC 22.1 H RBC 2.83 L Hgb 7.9 L Hct 25.5 L MCH RDW 20.0 H Plt Count 894 H Lymph % (Auto) [place] % (Auto) [place] # Baso # Seg Neutrophils % Seg Neuts % (Manual) Lymphocytes % (Manual) Monocytes % (Manual) Seg Neutrophils # Seg Neutrophils # Man Lymphocytes # (Manual) Monocytes # (Manual) Eosinophils # (Manual) Basophils # (Manual) PT INR APTT ABG pH ABG pO2 ABG HCO3 ABG O2 Saturation ABG Base Excess ABG Hemoglobin Oxyhemoglobin Sodium Potassium Chloride Carbon Dioxide BUN Creatinine Glucose POC Glucose 120 H 140 H Lactic Acid Calcium Ionized Calcium Phosphorus Magnesium Total Bilirubin AST ALT Alkaline Phosphatase Ammonia Total Creatine Kinase CK-MB (CK-2) CK-MB (CK-2) Rel Index Total Protein Albumin Urine WBC (Auto) Vancomycin Trough Salicylates Acetaminophen Plasma/Serum Alcohol Crossmatch 12/26/19 12/26/19 12/26/19 09:47 11:46 17:52 WBC RBC Hgb Hct MCH RDW Plt Count Lymph % (Auto) [place] % (Auto) [place] # Baso # Seg Neutrophils % Seg Neuts % (Manual) Lymphocytes % (Manual) Monocytes % (Manual) Seg Neutrophils # Seg Neutrophils # Man Lymphocytes # (Manual) Monocytes # (Manual) Eosinophils # (Manual) Basophils # (Manual) PT INR APTT ABG pH ABG pO2 ABG HCO3 ABG O2 Saturation ABG Base Excess ABG Hemoglobin Oxyhemoglobin Sodium Potassium Chloride Carbon Dioxide 18 L BUN 65 H Creatinine 1.4 H Glucose 132 H POC Glucose 110 H 145 H Lactic Acid Calcium Ionized Calcium Phosphorus Magnesium Total Bilirubin AST ALT Alkaline Phosphatase Ammonia Total Creatine Kinase CK-MB (CK-2) CK-MB (CK-2) Rel Index Total Protein Albumin Urine WBC (Auto) Vancomycin Trough Salicylates Acetaminophen Plasma/Serum Alcohol Crossmatch 12/27/19 12/27/19 12/27/19 00:01 03:42 03:42 WBC 18.0 H RBC 2.86 L Hgb 8.0 L Hct 25.2 L MCH RDW 19.2 H Plt Count 873 H Lymph % (Auto) 8.4 L [place] % (Auto) 7.5 H [place] # 1.4 H Baso # 0.2 H Seg Neutrophils % 82.2 H Seg Neuts % (Manual) Lymphocytes % (Manual) Monocytes % (Manual) Seg Neutrophils # 14.8 H Seg Neutrophils # Man Lymphocytes # (Manual) Monocytes # (Manual) Eosinophils # (Manual) Basophils # (Manual) PT INR APTT ABG pH ABG pO2 ABG HCO3 ABG O2 Saturation ABG Base Excess ABG Hemoglobin Oxyhemoglobin Sodium Potassium Chloride Carbon Dioxide BUN 73 H Creatinine 1.4 H Glucose 119 H POC Glucose 124 H Lactic Acid Calcium Ionized Calcium Phosphorus Magnesium Total Bilirubin AST ALT Alkaline Phosphatase Ammonia Total Creatine Kinase CK-MB (CK-2) CK-MB (CK-2) Rel Index Total Protein Albumin Urine WBC (Auto) Vancomycin Trough Salicylates Acetaminophen Plasma/Serum Alcohol Crossmatch 12/27/19 12/27/19 12/27/19 05:45 11:45 17:29 WBC RBC Hgb Hct MCH RDW Plt Count Lymph % (Auto) [place] % (Auto) [place] # Baso # Seg Neutrophils % Seg Neuts % (Manual) Lymphocytes % (Manual) Monocytes % (Manual) Seg Neutrophils # Seg Neutrophils # Man Lymphocytes # (Manual) Monocytes # (Manual) Eosinophils # (Manual) Basophils # (Manual) PT INR APTT ABG pH ABG pO2 ABG HCO3 ABG O2 Saturation ABG Base Excess ABG Hemoglobin Oxyhemoglobin Sodium Potassium Chloride Carbon Dioxide BUN Creatinine Glucose POC Glucose 131 H 123 H 134 H Lactic Acid Calcium Ionized Calcium Phosphorus Magnesium Total Bilirubin AST ALT Alkaline Phosphatase Ammonia Total Creatine Kinase CK-MB (CK-2) CK-MB (CK-2) Rel Index Total Protein Albumin Urine WBC (Auto) Vancomycin Trough Salicylates Acetaminophen Plasma/Serum Alcohol Crossmatch 12/28/19 12/28/19 12/28/19 00:12 05:14 11:53 WBC RBC Hgb Hct MCH RDW Plt Count Lymph % (Auto) [place] % (Auto) [place] # Baso # Seg Neutrophils % Seg Neuts % (Manual) Lymphocytes % (Manual) Monocytes % (Manual) Seg Neutrophils # Seg Neutrophils # Man Lymphocytes # (Manual) Monocytes # (Manual) Eosinophils # (Manual) Basophils # (Manual) PT INR APTT ABG pH ABG pO2 ABG HCO3 ABG O2 Saturation ABG Base Excess ABG Hemoglobin Oxyhemoglobin Sodium Potassium Chloride Carbon Dioxide BUN Creatinine Glucose POC Glucose 138 H 130 H 146 H Lactic Acid Calcium Ionized Calcium Phosphorus Magnesium Total Bilirubin AST ALT Alkaline Phosphatase Ammonia Total Creatine Kinase CK-MB (CK-2) CK-MB (CK-2) Rel Index Total Protein Albumin Urine WBC (Auto) Vancomycin Trough Salicylates Acetaminophen Plasma/Serum Alcohol Crossmatch 12/28/19 12/29/19 12/29/19 17:39 00:01 18:11 WBC RBC Hgb Hct MCH RDW Plt Count Lymph % (Auto) [place] % (Auto) [place] # Baso # Seg Neutrophils % Seg Neuts % (Manual) Lymphocytes % (Manual) Monocytes % (Manual) Seg Neutrophils # Seg Neutrophils # Man Lymphocytes # (Manual) Monocytes # (Manual) Eosinophils # (Manual) Basophils # (Manual) PT INR APTT ABG pH ABG pO2 ABG HCO3 ABG O2 Saturation ABG Base Excess ABG Hemoglobin Oxyhemoglobin Sodium Potassium Chloride Carbon Dioxide BUN Creatinine Glucose POC Glucose 117 H 139 H 130 H Lactic Acid Calcium Ionized Calcium Phosphorus Magnesium Total Bilirubin AST ALT Alkaline Phosphatase Ammonia Total Creatine Kinase CK-MB (CK-2) CK-MB (CK-2) Rel Index Total Protein Albumin Urine WBC (Auto) Vancomycin Trough Salicylates Acetaminophen Plasma/Serum Alcohol Crossmatch 12/29/19 12/30/19 12/30/19 23:09 00:02 01:06 WBC 16.7 H RBC 2.91 L Hgb 8.2 L Hct 25.4 L MCH RDW 18.7 H Plt Count 708 H Lymph % (Auto) 9.4 L [place] % (Auto) [place] # 0.9 H Baso # Seg Neutrophils % 83.5 H Seg Neuts % (Manual) Lymphocytes % (Manual) Monocytes % (Manual) Seg Neutrophils # 14.0 H Seg Neutrophils # Man Lymphocytes # (Manual) Monocytes # (Manual) Eosinophils # (Manual) Basophils # (Manual) PT INR APTT ABG pH ABG pO2 ABG HCO3 ABG O2 Saturation ABG Base Excess ABG Hemoglobin Oxyhemoglobin Sodium Potassium Chloride Carbon Dioxide BUN Creatinine Glucose POC Glucose 120 H 114 H Lactic Acid Calcium Ionized Calcium Phosphorus Magnesium Total Bilirubin AST ALT Alkaline Phosphatase Ammonia Total Creatine Kinase CK-MB (CK-2) CK-MB (CK-2) Rel Index Total Protein Albumin Urine WBC (Auto) Vancomycin Trough Salicylates Acetaminophen Plasma/Serum Alcohol Crossmatch 12/30/19 12/30/19 12/30/19 01:06 04:23 05:18 WBC RBC Hgb Hct MCH RDW Plt Count Lymph % (Auto) [place] % (Auto) [place] # Baso # Seg Neutrophils % Seg Neuts % (Manual) Lymphocytes % (Manual) Monocytes % (Manual) Seg Neutrophils # Seg Neutrophils # Man Lymphocytes # (Manual) Monocytes # (Manual) Eosinophils # (Manual) Basophils # (Manual) PT INR APTT ABG pH ABG pO2 ABG HCO3 ABG O2 Saturation ABG Base Excess ABG Hemoglobin 8.3 L Oxyhemoglobin Sodium Potassium Chloride Carbon Dioxide BUN 70 H Creatinine Glucose 122 H POC Glucose 130 H Lactic Acid Calcium Ionized Calcium Phosphorus Magnesium Total Bilirubin AST ALT Alkaline Phosphatase Ammonia Total Creatine Kinase CK-MB (CK-2) CK-MB (CK-2) Rel Index Total Protein Albumin Urine WBC (Auto) Vancomycin Trough Salicylates Acetaminophen Plasma/Serum Alcohol Crossmatch 12/30/19 12/30/19 12/30/19 05:40 12:17 17:43 WBC RBC Hgb Hct MCH RDW Plt Count Lymph % (Auto) [place] % (Auto) [place] # Baso # Seg Neutrophils % Seg Neuts % (Manual) Lymphocytes % (Manual) Monocytes % (Manual) Seg Neutrophils # Seg Neutrophils # Man Lymphocytes # (Manual) Monocytes # (Manual) Eosinophils # (Manual) Basophils # (Manual) PT INR APTT ABG pH ABG pO2 ABG HCO3 ABG O2 Saturation ABG Base Excess ABG Hemoglobin Oxyhemoglobin Sodium Potassium Chloride Carbon Dioxide BUN Creatinine Glucose POC Glucose 135 H 132 H 118 H Lactic Acid Calcium Ionized Calcium Phosphorus Magnesium Total Bilirubin AST ALT Alkaline Phosphatase Ammonia Total Creatine Kinase CK-MB (CK-2) CK-MB (CK-2) Rel Index Total Protein Albumin Urine WBC (Auto) Vancomycin Trough Salicylates Acetaminophen Plasma/Serum Alcohol Crossmatch 12/30/19 12/31/19 12/31/19 23:29 05:19 17:50 WBC RBC Hgb Hct MCH RDW Plt Count Lymph % (Auto) [place] % (Auto) [place] # Baso # Seg Neutrophils % Seg Neuts % (Manual) Lymphocytes % (Manual) Monocytes % (Manual) Seg Neutrophils # Seg Neutrophils # Man Lymphocytes # (Manual) Monocytes # (Manual) Eosinophils # (Manual) Basophils # (Manual) PT INR APTT ABG pH ABG pO2 ABG HCO3 ABG O2 Saturation ABG Base Excess ABG Hemoglobin Oxyhemoglobin Sodium Potassium Chloride Carbon Dioxide BUN Creatinine Glucose POC Glucose 114 H 109 H 116 H Lactic Acid Calcium Ionized Calcium Phosphorus Magnesium Total Bilirubin AST ALT Alkaline Phosphatase Ammonia Total Creatine Kinase CK-MB (CK-2) CK-MB (CK-2) Rel Index Total Protein Albumin Urine WBC (Auto) Vancomycin Trough Salicylates Acetaminophen Plasma/Serum Alcohol Crossmatch 01/01/20 01/01/20 01/01/20 00:10 05:19 12:02 WBC RBC Hgb Hct MCH RDW Plt Count Lymph % (Auto) [place] % (Auto) [place] # Baso # Seg Neutrophils % Seg Neuts % (Manual) Lymphocytes % (Manual) Monocytes % (Manual) Seg Neutrophils # Seg Neutrophils # Man Lymphocytes # (Manual) Monocytes # (Manual) Eosinophils # (Manual) Basophils # (Manual) PT INR APTT ABG pH ABG pO2 ABG HCO3 ABG O2 Saturation ABG Base Excess ABG Hemoglobin Oxyhemoglobin Sodium Potassium Chloride Carbon Dioxide BUN Creatinine Glucose POC Glucose 131 H 122 H 136 H Lactic Acid Calcium Ionized Calcium Phosphorus Magnesium Total Bilirubin AST ALT Alkaline Phosphatase Ammonia Total Creatine Kinase CK-MB (CK-2) CK-MB (CK-2) Rel Index Total Protein Albumin Urine WBC (Auto) Vancomycin Trough Salicylates Acetaminophen Plasma/Serum Alcohol Crossmatch 01/02/20 01/02/20 01/02/20 00:24 05:36 11:41 WBC RBC Hgb Hct MCH RDW Plt Count Lymph % (Auto) [place] % (Auto) [place] # Baso # Seg Neutrophils % Seg Neuts % (Manual) Lymphocytes % (Manual) Monocytes % (Manual) Seg Neutrophils # Seg Neutrophils # Man Lymphocytes # (Manual) Monocytes # (Manual) Eosinophils # (Manual) Basophils # (Manual) PT INR APTT ABG pH ABG pO2 ABG HCO3 ABG O2 Saturation ABG Base Excess ABG Hemoglobin Oxyhemoglobin Sodium Potassium Chloride Carbon Dioxide BUN Creatinine Glucose POC Glucose 119 H 109 H 125 H Lactic Acid Calcium Ionized Calcium Phosphorus Magnesium Total Bilirubin AST ALT Alkaline Phosphatase Ammonia Total Creatine Kinase CK-MB (CK-2) CK-MB (CK-2) Rel Index Total Protein Albumin Urine WBC (Auto) Vancomycin Trough Salicylates Acetaminophen Plasma/Serum Alcohol Crossmatch 01/02/20 01/03/20 01/03/20 17:49 05:29 12:13 WBC RBC Hgb Hct MCH RDW Plt Count Lymph % (Auto) [place] % (Auto) [place] # Baso # Seg Neutrophils % Seg Neuts % (Manual) Lymphocytes % (Manual) Monocytes % (Manual) Seg Neutrophils # Seg Neutrophils # Man Lymphocytes # (Manual) Monocytes # (Manual) Eosinophils # (Manual) Basophils # (Manual) PT INR APTT ABG pH ABG pO2 ABG HCO3 ABG O2 Saturation ABG Base Excess ABG Hemoglobin Oxyhemoglobin Sodium Potassium Chloride Carbon Dioxide BUN Creatinine Glucose POC Glucose 130 H 132 H 113 H Lactic Acid Calcium Ionized Calcium Phosphorus Magnesium Total Bilirubin AST ALT Alkaline Phosphatase Ammonia Total Creatine Kinase CK-MB (CK-2) CK-MB (CK-2) Rel Index Total Protein Albumin Urine WBC (Auto) Vancomycin Trough Salicylates Acetaminophen Plasma/Serum Alcohol Crossmatch 01/03/20 01/04/20 01/04/20 17:32 00:19 05:26 WBC RBC Hgb Hct MCH RDW Plt Count Lymph % (Auto) [place] % (Auto) [place] # Baso # Seg Neutrophils % Seg Neuts % (Manual) Lymphocytes % (Manual) Monocytes % (Manual) Seg Neutrophils # Seg Neutrophils # Man Lymphocytes # (Manual) Monocytes # (Manual) Eosinophils # (Manual) Basophils # (Manual) PT INR APTT ABG pH ABG pO2 ABG HCO3 ABG O2 Saturation ABG Base Excess ABG Hemoglobin Oxyhemoglobin Sodium Potassium Chloride Carbon Dioxide BUN Creatinine Glucose POC Glucose 127 H 141 H 129 H Lactic Acid Calcium Ionized Calcium Phosphorus Magnesium Total Bilirubin AST ALT Alkaline Phosphatase Ammonia Total Creatine Kinase CK-MB (CK-2) CK-MB (CK-2) Rel Index Total Protein Albumin Urine WBC (Auto) Vancomycin Trough Salicylates Acetaminophen Plasma/Serum Alcohol Crossmatch 01/04/20 01/04/20 01/05/20 11:39 17:29 05:22 WBC RBC Hgb Hct MCH RDW Plt Count Lymph % (Auto) [place] % (Auto) [place] # Baso # Seg Neutrophils % Seg Neuts % (Manual) Lymphocytes % (Manual) Monocytes % (Manual) Seg Neutrophils # Seg Neutrophils # Man Lymphocytes # (Manual) Monocytes # (Manual) Eosinophils # (Manual) Basophils # (Manual) PT INR APTT ABG pH ABG pO2 ABG HCO3 ABG O2 Saturation ABG Base Excess ABG Hemoglobin Oxyhemoglobin Sodium Potassium Chloride Carbon Dioxide BUN Creatinine Glucose POC Glucose 167 H 132 H 121 H Lactic Acid Calcium Ionized Calcium Phosphorus Magnesium Total Bilirubin AST ALT Alkaline Phosphatase Ammonia Total Creatine Kinase CK-MB (CK-2) CK-MB (CK-2) Rel Index Total Protein Albumin Urine WBC (Auto) Vancomycin Trough Salicylates Acetaminophen Plasma/Serum Alcohol Crossmatch 01/05/20 01/05/20 01/05/20 12:25 17:40 18:06 WBC RBC Hgb Hct MCH RDW Plt Count Lymph % (Auto) [place] % (Auto) [place] # Baso # Seg Neutrophils % Seg Neuts % (Manual) Lymphocytes % (Manual) Monocytes % (Manual) Seg Neutrophils # Seg Neutrophils # Man Lymphocytes # (Manual) Monocytes # (Manual) Eosinophils # (Manual) Basophils # (Manual) PT INR APTT ABG pH 7.472 H ABG pO2 99.2 H ABG HCO3 ABG O2 Saturation ABG Base Excess ABG Hemoglobin 7.8 L Oxyhemoglobin Sodium Potassium Chloride Carbon Dioxide BUN Creatinine Glucose POC Glucose 106 H 110 H Lactic Acid Calcium Ionized Calcium Phosphorus Magnesium Total Bilirubin AST ALT Alkaline Phosphatase Ammonia Total Creatine Kinase CK-MB (CK-2) CK-MB (CK-2) Rel Index Total Protein Albumin Urine WBC (Auto) Vancomycin Trough Salicylates Acetaminophen Plasma/Serum Alcohol Crossmatch 01/06/20 01/06/20 01/06/20 00:11 05:16 11:30 WBC RBC Hgb Hct MCH RDW Plt Count Lymph % (Auto) [place] % (Auto) [place] # Baso # Seg Neutrophils % Seg Neuts % (Manual) Lymphocytes % (Manual) Monocytes % (Manual) Seg Neutrophils # Seg Neutrophils # Man Lymphocytes # (Manual) Monocytes # (Manual) Eosinophils # (Manual) Basophils # (Manual) PT INR APTT ABG pH ABG pO2 ABG HCO3 ABG O2 Saturation ABG Base Excess ABG Hemoglobin Oxyhemoglobin Sodium Potassium Chloride Carbon Dioxide BUN Creatinine Glucose POC Glucose 108 H 124 H 125 H Lactic Acid Calcium Ionized Calcium Phosphorus Magnesium Total Bilirubin AST ALT Alkaline Phosphatase Ammonia Total Creatine Kinase CK-MB (CK-2) CK-MB (CK-2) Rel Index Total Protein Albumin Urine WBC (Auto) Vancomycin Trough Salicylates Acetaminophen Plasma/Serum Alcohol Crossmatch 01/06/20 01/06/20 01/07/20 17:53 23:51 04:12 WBC 16.5 H RBC 3.29 L Hgb 9.3 L Hct 28.1 L MCH RDW 18.2 H Plt Count 526 H Lymph % (Auto) 8.4 L [place] % (Auto) [place] # 1.0 H Baso # Seg Neutrophils % 84.4 H Seg Neuts % (Manual) Lymphocytes % (Manual) Monocytes % (Manual) Seg Neutrophils # 13.9 H Seg Neutrophils # Man Lymphocytes # (Manual) Monocytes # (Manual) Eosinophils # (Manual) Basophils # (Manual) PT INR APTT ABG pH ABG pO2 ABG HCO3 ABG O2 Saturation ABG Base Excess ABG Hemoglobin Oxyhemoglobin Sodium Potassium Chloride Carbon Dioxide BUN Creatinine Glucose POC Glucose 166 H 128 H Lactic Acid Calcium Ionized Calcium Phosphorus Magnesium Total Bilirubin AST ALT Alkaline Phosphatase Ammonia Total Creatine Kinase CK-MB (CK-2) CK-MB (CK-2) Rel Index Total Protein Albumin Urine WBC (Auto) Vancomycin Trough Salicylates Acetaminophen Plasma/Serum Alcohol Crossmatch 01/07/20 01/07/20 01/07/20 04:12 04:45 11:51 WBC RBC Hgb Hct MCH RDW Plt Count Lymph % (Auto) [place] % (Auto) [place] # Baso # Seg Neutrophils % Seg Neuts % (Manual) Lymphocytes % (Manual) Monocytes % (Manual) Seg Neutrophils # Seg Neutrophils # Man Lymphocytes # (Manual) Monocytes # (Manual) Eosinophils # (Manual) Basophils # (Manual) PT INR APTT ABG pH ABG pO2 ABG HCO3 ABG O2 Saturation ABG Base Excess ABG Hemoglobin Oxyhemoglobin Sodium 136 L Potassium Chloride Carbon Dioxide 21 L BUN 44 H Creatinine 0.6 L Glucose 124 H POC Glucose 134 H 138 H Lactic Acid Calcium Ionized Calcium Phosphorus Magnesium Total Bilirubin AST ALT Alkaline Phosphatase Ammonia Total Creatine Kinase CK-MB (CK-2) CK-MB (CK-2) Rel Index Total Protein Albumin Urine WBC (Auto) Vancomycin Trough Salicylates Acetaminophen Plasma/Serum Alcohol Crossmatch 01/07/20 01/08/20 01/08/20 17:36 00:33 05:29 WBC RBC Hgb Hct MCH RDW Plt Count Lymph % (Auto) [place] % (Auto) [place] # Baso # Seg Neutrophils % Seg Neuts % (Manual) Lymphocytes % (Manual) Monocytes % (Manual) Seg Neutrophils # Seg Neutrophils # Man Lymphocytes # (Manual) Monocytes # (Manual) Eosinophils # (Manual) Basophils # (Manual) PT INR APTT ABG pH ABG pO2 ABG HCO3 ABG O2 Saturation ABG Base Excess ABG Hemoglobin Oxyhemoglobin Sodium Potassium Chloride Carbon Dioxide BUN Creatinine Glucose POC Glucose 128 H 119 H 124 H Lactic Acid Calcium Ionized Calcium Phosphorus Magnesium Total Bilirubin AST ALT Alkaline Phosphatase Ammonia Total Creatine Kinase CK-MB (CK-2) CK-MB (CK-2) Rel Index Total Protein Albumin Urine WBC (Auto) Vancomycin Trough Salicylates Acetaminophen Plasma/Serum Alcohol Crossmatch 01/08/20 01/08/20 01/08/20 12:51 20:25 23:22 WBC RBC Hgb Hct MCH RDW Plt Count Lymph % (Auto) [place] % (Auto) [place] # Baso # Seg Neutrophils % Seg Neuts % (Manual) Lymphocytes % (Manual) Monocytes % (Manual) Seg Neutrophils # Seg Neutrophils # Man Lymphocytes # (Manual) Monocytes # (Manual) Eosinophils # (Manual) Basophils # (Manual) PT INR APTT ABG pH ABG pO2 132.2 H ABG HCO3 ABG O2 Saturation ABG Base Excess ABG Hemoglobin Oxyhemoglobin Sodium Potassium Chloride Carbon Dioxide BUN Creatinine Glucose POC Glucose 128 H 127 H Lactic Acid Calcium Ionized Calcium Phosphorus Magnesium Total Bilirubin AST ALT Alkaline Phosphatase Ammonia Total Creatine Kinase CK-MB (CK-2) CK-MB (CK-2) Rel Index Total Protein Albumin Urine WBC (Auto) Vancomycin Trough Salicylates Acetaminophen Plasma/Serum Alcohol Crossmatch 01/09/20 01/09/20 01/09/20 05:48 08:51 11:29 WBC RBC Hgb Hct MCH RDW Plt Count Lymph % (Auto) [place] % (Auto) [place] # Baso # Seg Neutrophils % Seg Neuts % (Manual) Lymphocytes % (Manual) Monocytes % (Manual) Seg Neutrophils # Seg Neutrophils # Man Lymphocytes # (Manual) Monocytes # (Manual) Eosinophils # (Manual) Basophils # (Manual) PT INR APTT ABG pH ABG pO2 94.3 H ABG HCO3 ABG O2 Saturation ABG Base Excess ABG Hemoglobin 9.5 L Oxyhemoglobin Sodium Potassium Chloride Carbon Dioxide BUN Creatinine Glucose POC Glucose 120 H 112 H Lactic Acid Calcium Ionized Calcium Phosphorus Magnesium Total Bilirubin AST ALT Alkaline Phosphatase Ammonia Total Creatine Kinase CK-MB (CK-2) CK-MB (CK-2) Rel Index Total Protein Albumin Urine WBC (Auto) Vancomycin Trough Salicylates Acetaminophen Plasma/Serum Alcohol Crossmatch 01/09/20 01/10/20 01/10/20 17:57 05:17 12:28 WBC RBC Hgb Hct MCH RDW Plt Count Lymph % (Auto) [place] % (Auto) [place] # Baso # Seg Neutrophils % Seg Neuts % (Manual) Lymphocytes % (Manual) Monocytes % (Manual) Seg Neutrophils # Seg Neutrophils # Man Lymphocytes # (Manual) Monocytes # (Manual) Eosinophils # (Manual) Basophils # (Manual) PT INR APTT ABG pH ABG pO2 ABG HCO3 ABG O2 Saturation ABG Base Excess ABG Hemoglobin Oxyhemoglobin Sodium Potassium Chloride Carbon Dioxide BUN Creatinine Glucose POC Glucose 122 H 115 H 116 H Lactic Acid Calcium Ionized Calcium Phosphorus Magnesium Total Bilirubin AST ALT Alkaline Phosphatase Ammonia Total Creatine Kinase CK-MB (CK-2) CK-MB (CK-2) Rel Index Total Protein Albumin Urine WBC (Auto) Vancomycin Trough Salicylates Acetaminophen Plasma/Serum Alcohol Crossmatch 04/01/10/20 01/11/20 18:25 23:47 06:05 WBC RBC Hgb Hct MCH RDW Plt Count Lymph % (Auto) [place] % (Auto) [place] # Baso # Seg Neutrophils % Seg Neuts % (Manual) Lymphocytes % (Manual) Monocytes % (Manual) Seg Neutrophils # Seg Neutrophils # Man Lymphocytes # (Manual) Monocytes # (Manual) Eosinophils # (Manual) Basophils # (Manual) PT INR APTT ABG pH ABG pO2 ABG HCO3 ABG O2 Saturation ABG Base Excess ABG Hemoglobin Oxyhemoglobin Sodium Potassium Chloride Carbon Dioxide BUN Creatinine Glucose POC Glucose 123 H 115 H 151 H Lactic Acid Calcium Ionized Calcium Phosphorus Magnesium Total Bilirubin AST ALT Alkaline Phosphatase Ammonia Total Creatine Kinase CK-MB (CK-2) CK-MB (CK-2) Rel Index Total Protein Albumin Urine WBC (Auto) Vancomycin Trough Salicylates Acetaminophen Plasma/Serum Alcohol Crossmatch 01/11/20 01/11/20 01/11/20 07:00 07:00 12:27 WBC 11.8 H RBC 3.40 L Hgb 9.4 L Hct 29.3 L MCH RDW 18.1 H Plt Count 549 H Lymph % (Auto) [place] % (Auto) 9.1 H [place] # 1.1 H Baso # Seg Neutrophils % 73.3 H Seg Neuts % (Manual) Lymphocytes % (Manual) Monocytes % (Manual) Seg Neutrophils # 8.7 H Seg Neutrophils # Man Lymphocytes # (Manual) Monocytes # (Manual) Eosinophils # (Manual) Basophils # (Manual) PT INR APTT ABG pH ABG pO2 ABG HCO3 ABG O2 Saturation ABG Base Excess ABG Hemoglobin Oxyhemoglobin Sodium 134 L Potassium Chloride 97.7 L Carbon Dioxide 21 L BUN 38 H Creatinine 0.5 L Glucose 168 H POC Glucose 117 H Lactic Acid Calcium 10.5 H Ionized Calcium Phosphorus Magnesium Total Bilirubin AST ALT Alkaline Phosphatase Ammonia Total Creatine Kinase CK-MB (CK-2) CK-MB (CK-2) Rel Index Total Protein Albumin Urine WBC (Auto) Vancomycin Trough Salicylates Acetaminophen Plasma/Serum Alcohol Crossmatch 01/11/20 01/12/20 01/12/20 18:19 00:53 05:24 WBC RBC Hgb Hct MCH RDW Plt Count Lymph % (Auto) [place] % (Auto) [place] # Baso # Seg Neutrophils % Seg Neuts % (Manual) Lymphocytes % (Manual) Monocytes % (Manual) Seg Neutrophils # Seg Neutrophils # Man Lymphocytes # (Manual) Monocytes # (Manual) Eosinophils # (Manual) Basophils # (Manual) PT INR APTT ABG pH ABG pO2 ABG HCO3 ABG O2 Saturation ABG Base Excess ABG Hemoglobin Oxyhemoglobin Sodium Potassium Chloride Carbon Dioxide BUN Creatinine Glucose POC Glucose 126 H 126 H 128 H Lactic Acid Calcium Ionized Calcium Phosphorus Magnesium Total Bilirubin AST ALT Alkaline Phosphatase Ammonia Total Creatine Kinase CK-MB (CK-2) CK-MB (CK-2) Rel Index Total Protein Albumin Urine WBC (Auto) Vancomycin Trough Salicylates Acetaminophen Plasma/Serum Alcohol Crossmatch 01/12/20 01/12/20 01/13/20 13:39 18:02 00:27 WBC RBC Hgb Hct MCH RDW Plt Count Lymph % (Auto) [place] % (Auto) [place] # Baso # Seg Neutrophils % Seg Neuts % (Manual) Lymphocytes % (Manual) Monocytes % (Manual) Seg Neutrophils # Seg Neutrophils # Man Lymphocytes # (Manual) Monocytes # (Manual) Eosinophils # (Manual) Basophils # (Manual) PT INR APTT ABG pH ABG pO2 ABG HCO3 ABG O2 Saturation ABG Base Excess ABG Hemoglobin Oxyhemoglobin Sodium Potassium Chloride Carbon Dioxide BUN Creatinine Glucose POC Glucose 146 H 125 H 131 H Lactic Acid Calcium Ionized Calcium Phosphorus Magnesium Total Bilirubin AST ALT Alkaline Phosphatase Ammonia Total Creatine Kinase CK-MB (CK-2) CK-MB (CK-2) Rel Index Total Protein Albumin Urine WBC (Auto) Vancomycin Trough Salicylates Acetaminophen Plasma/Serum Alcohol Crossmatch 01/13/20 01/13/20 01/13/20 05:44 11:54 17:18 WBC RBC Hgb Hct MCH RDW Plt Count Lymph % (Auto) [place] % (Auto) [place] # Baso # Seg Neutrophils % Seg Neuts % (Manual) Lymphocytes % (Manual) Monocytes % (Manual) Seg Neutrophils # Seg Neutrophils # Man Lymphocytes # (Manual) Monocytes # (Manual) Eosinophils # (Manual) Basophils # (Manual) PT INR APTT ABG pH ABG pO2 ABG HCO3 ABG O2 Saturation ABG Base Excess ABG Hemoglobin Oxyhemoglobin Sodium Potassium Chloride Carbon Dioxide BUN Creatinine Glucose POC Glucose 148 H 140 H 130 H Lactic Acid Calcium Ionized Calcium Phosphorus Magnesium Total Bilirubin AST ALT Alkaline Phosphatase Ammonia Total Creatine Kinase CK-MB (CK-2) CK-MB (CK-2) Rel Index Total Protein Albumin Urine WBC (Auto) Vancomycin Trough Salicylates Acetaminophen Plasma/Serum Alcohol Crossmatch 01/14/20 01/14/20 01/14/20 00:16 05:45 12:19 WBC RBC Hgb Hct MCH RDW Plt Count Lymph % (Auto) [place] % (Auto) [place] # Baso # Seg Neutrophils % Seg Neuts % (Manual) Lymphocytes % (Manual) Monocytes % (Manual) Seg Neutrophils # Seg Neutrophils # Man Lymphocytes # (Manual) Monocytes # (Manual) Eosinophils # (Manual) Basophils # (Manual) PT INR APTT ABG pH ABG pO2 ABG HCO3 ABG O2 Saturation ABG Base Excess ABG Hemoglobin Oxyhemoglobin Sodium Potassium Chloride Carbon Dioxide BUN Creatinine Glucose POC Glucose 125 H 146 H 147 H Lactic Acid Calcium Ionized Calcium Phosphorus Magnesium Total Bilirubin AST ALT Alkaline Phosphatase Ammonia Total Creatine Kinase CK-MB (CK-2) CK-MB (CK-2) Rel Index Total Protein Albumin Urine WBC (Auto) Vancomycin Trough Salicylates Acetaminophen Plasma/Serum Alcohol Crossmatch 01/14/20 01/14/20 01/15/20 18:10 23:54 05:14 WBC RBC Hgb Hct MCH RDW Plt Count Lymph % (Auto) [place] % (Auto) [place] # Baso # Seg Neutrophils % Seg Neuts % (Manual) Lymphocytes % (Manual) Monocytes % (Manual) Seg Neutrophils # Seg Neutrophils # Man Lymphocytes # (Manual) Monocytes # (Manual) Eosinophils # (Manual) Basophils # (Manual) PT INR APTT ABG pH ABG pO2 ABG HCO3 ABG O2 Saturation ABG Base Excess ABG Hemoglobin Oxyhemoglobin Sodium Potassium Chloride Carbon Dioxide BUN Creatinine Glucose POC Glucose 136 H 109 H 111 H Lactic Acid Calcium Ionized Calcium Phosphorus Magnesium Total Bilirubin AST ALT Alkaline Phosphatase Ammonia Total Creatine Kinase CK-MB (CK-2) CK-MB (CK-2) Rel Index Total Protein Albumin Urine WBC (Auto) Vancomycin Trough Salicylates Acetaminophen Plasma/Serum Alcohol Crossmatch 01/15/20 01/15/20 01/16/20 12:34 23:25 05:06 WBC RBC Hgb Hct MCH RDW Plt Count Lymph % (Auto) [place] % (Auto) [place] # Baso # Seg Neutrophils % Seg Neuts % (Manual) Lymphocytes % (Manual) Monocytes % (Manual) Seg Neutrophils # Seg Neutrophils # Man Lymphocytes # (Manual) Monocytes # (Manual) Eosinophils # (Manual) Basophils # (Manual) PT INR APTT ABG pH ABG pO2 ABG HCO3 ABG O2 Saturation ABG Base Excess ABG Hemoglobin Oxyhemoglobin Sodium Potassium Chloride Carbon Dioxide BUN Creatinine Glucose POC Glucose 131 H 120 H 121 H Lactic Acid Calcium Ionized Calcium Phosphorus Magnesium Total Bilirubin AST ALT Alkaline Phosphatase Ammonia Total Creatine Kinase CK-MB (CK-2) CK-MB (CK-2) Rel Index Total Protein Albumin Urine WBC (Auto) Vancomycin Trough Salicylates Acetaminophen Plasma/Serum Alcohol Crossmatch Allied health notes reviewed: nursing
[2020-01-16] MEDS ORDERED: SODIUM CHLORIDE 0.9% 1000 ML 1,000 ML ONE (13:27)
[2020-01-16] MEDS ORDERED: SODIUM CHLORIDE 0.9% 100 ML IVPB IV SCH (14:00)
[2020-01-16] MEDS: QUEtiapine 100 MG TAB FEEDTUBE SCH (21:14)
[2020-01-17 06:22] LABS: Basophils # (Auto) 0.1 K/mm3 (0.0-0.1); Basophils % (Auto) 0.7 % (0.0-1.8); Eosinophils # (Auto) 0.2 K/mm3 (0.0-0.4); Eosinophils % (Auto) 1.4 % (0.0-4.3); Hematocrit 28.5 % (30.3-42.9); Hemoglobin 9.3 gm/dl (10.1-14.3); Lymphocytes # (Auto) 1.8 K/mm3 (1.2-5.4); Lymphocytes % (Auto) 13.1 % (13.4-35.0); Mean Corpuscular HGB Conc 33 % (30-34); Mean Corpuscular Volume 87 fl (79-97); Monocytes % (Auto) 7.3 % (0.0-7.3); Platelet Count 490 K/mm3 (140-440); Red Blood Count 3.27 M/mm3 (3.65-5.03)
[2020-01-17] MEDS: SERTRALINE 50 MG TAB PO SCH (10:19)
[2020-01-17] MEDS: GLYCOPYRROLATE 1 MG TAB PO SCH ×3 (10:19→22:37)
[2020-01-17] MEDS: levETIRAcetam 500 MG/5 ML ORAL LIQD PO SCH ×2 (10:19→22:37)
[2020-01-17] MEDS: TAMSULOSIN 0.4 MG CAP PO SCH (10:19)
[2020-01-17] MEDS: MIRTAZAPINE 30 MG TAB PO SCH (10:19)
[2020-01-17] MEDS: hydrOXYzine PAMOATE 25 MG CAP PO SCH ×2 (10:19→22:37)
[2020-01-17] MEDS: LANSOPRAZOLE 30 MG SOLUTAB FEEDTUBE SCH (10:20)
--- NOTE | 2020-01-17 11:52 | Progress Note ---
Assessment and Plan Assessment and plan: --Anoxic brain injury: suspected CT head: No acute abnormality. neurology following, EEG Generalized slowing. No seizures or epileptiform activity. Neurology : Patient has intact corneal/VOR/cough reflexes, and is withdrawing lower extremities, -- Out of hospital cardiac arrest, The likelihood of meaningful neurological recovery is somewhat low. Patient awake and alert nonverbal --Acute Respiratory failure; Vent dependent, s/p trach and PEG on 12/12 on T-piece CTA chest negative for PE, , Echo diastolic dysfunction --Anemia, microcytic Status post 3 units PRBC transfusion, H&H low stable --Acute metabolic encephalopathy/toxic encephalopathy stable --Hyperammonemia -resolved --Metabolic Acidosis: Improved --Transaminitis; resolved --Leucocytosis with sepsis Source MRSA bacteremia and MSSA pneumonia. UA showed pyuria. RUQ US showed no ascites. Repeat TTE negative for vegetation. Completed 7 days of Ceftriaxone on 11/29/2019. Treated with Abx vancomycin 1 gm IV q 12 hour total 2 week till 12/30/2019 --MSSA pneumonia: Status post vancomycin till 12/30/2019 --ALcohol USe Disorder; Supportive care --Seizure disorder: Seizure precautions , continue Keppra --H. Influenzae, tracheobronchitis, treated with abx --DNR CODE STATUS --Discharge planning ; social and financial issues Case management assisting poor prognosis 12/31/19: still intubated via trach, no restraints needed, FiO2 30%, PEEP 6, Difficulty getting to Hospice, mother wants to kept updated. Patient has 4 kids, 2 sons in correction, 1 son is transgender and not involved per mother; Daughter is Deborah who is NOK 01/01/20: Still intubated, but patient opening her eyes but does not follow any command. Unable to set up inpatient hospice 01/01 pending placement, patient is self funded 01/02 pending placement, patient is self funded 01/03 pending placement, patient is self funded. still on vent. updated patient's mother 01/04 pending placement, patient is self funded. still on vent. 01/05 pending placement, patient is tolerating T-piece trial today -off vent. 01/06 patient getting T-piece trial daily, need placement. Patient is unfunded 01/08: Pt opened for 24 hours and tolerating T-piece with 8 L O2. Patient is unfunded and unable to find a placement. Family is refusing to accept the patient at home with home hospice. 01/09: daytime T-piece trials as tolerated and continue to rest on AC for now. pending placement 01/10; remains on ventilatory support DNR, for placement 01/11: Clinically stable, tracheostomy on T-piece, DC planning / placement 01/12: Clinically no change, awaiting placement 01/13: Tracheostomy on T-piece, stable, pending placement 01/14; no change clinically, DC planning 01/15: DC planning, social issues, stable for discharge 01/16 : Tracheostomy on T-piece , stable for discharge social, financial, insurance issues, discharge planning The high probability of a clinically significant, sudden or life threatening deterioration of the [neurology,respiratory] system(s) required my full and direct attention, intervention and personal management. The aggregate critical care time was [32] minutes. This time is in addition to time spent performing reported procedures but includes the following: [x] Data Review and interpretation [x] Patient assessment and monitoring of vital signs [x] Documentation [x] Medication orders and management History Interval history: Patient seen and examined medical records reviewed Patient is alert and awake not in acute distress Tracheostomy on T-piece Vital signs noted Hospitalist Physical - Constitutional Vitals: Temp Pulse Resp BP Pulse Ox 98.0 F 109 H 24 119/67 98 01/17/20 08:00 01/17/20 06:00 01/17/20 06:00 01/17/20 06:00 01/17/20 10:01 General appearance: Present: mild distress, cachectic, disheveled, other (Tracheostomy on T-piece) - EENT Eyes: Present: PERRL, EOM intact - Neck Neck: Present: supple, normal ROM - Respiratory Respiratory effort: normal Respiratory: bilateral: diminished, rhonchi, negative: rales, wheezing - Cardiovascular Rhythm: regular Heart Sounds: Present: S1 & S2 - Extremities Extremities: no ischemia, No edema - Abdominal General gastrointestinal: soft, non-tender, non-distended, normal bowel sounds, other (PEG in place) - Integumentary Integumentary: Present: clear, warm - Psychiatric Psychiatric: other (Confused) - Neurologic Neurologic: other (Residual weakness) Results - Labs CBC & Chem 7: 01/17/20 05:32 01/11/20 07:00 Labs: Laboratory Last Values WBC 13.6 K/mm3 (4.5-11.0) H 01/17/20 05:32 RBC 3.27 M/mm3 (3.65-5.03) L 01/17/20 05:32 Hgb 9.3 gm/dl (10.1-14.3) L 01/17/20 05:32 Hct 28.5 % (30.3-42.9) L 01/17/20 05:32 MCV 87 fl (79-97) 01/17/20 05:32 MCH 28 pg (28-32) 01/17/20 05:32 MCHC 33 % (30-34) 01/17/20 05:32 RDW 17.0 % (13.2-15.2) H 01/17/20 05:32 Plt Count 490 K/mm3 (140-440) H 01/17/20 05:32 Lymph % (Auto) 13.1 % (13.4-35.0) L 01/17/20 05:32 Louisa % (Auto) 7.3 % (0.0-7.3) 01/17/20 05:32 Eos % (Auto) 1.4 % (0.0-4.3) 01/17/20 05:32 Baso % (Auto) 0.7 % (0.0-1.8) 01/17/20 05:32 Lymph # 1.8 K/mm3 (1.2-5.4) 01/17/20 05:32 Louisa # 1.0 K/mm3 (0.0-0.8) H 01/17/20 05:32 Eos # 0.2 K/mm3 (0.0-0.4) 01/17/20 05:32 Baso # 0.1 K/mm3 (0.0-0.1) 01/17/20 05:32 Add Manual Diff Complete 12/25/19 03:47 Total Counted 200 12/25/19 03:47 Seg Neutrophils % 77.5 % (40.0-70.0) H 01/17/20 05:32 Seg Neuts % (Manual) 97.5 % (40.0-70.0) H 12/25/19 03:47 Band Neutrophils % 0 % 12/25/19 03:47 Lymphocytes % (Manual) 1.0 % (13.4-35.0) L 12/25/19 03:47 Reactive Lymphs % (Man) 0 % 12/25/19 03:47 Monocytes % (Manual) 1.5 % (0.0-7.3) 12/25/19 03:47 Eosinophils % (Manual) 0 % (0.0-4.3) 12/25/19 03:47 Basophils % (Manual) 0 % (0.0-1.8) 12/25/19 03:47 Metamyelocytes % 0 % 12/25/19 03:47 Myelocytes % 0 % 12/25/19 03:47 Promyelocytes % 0 % 12/25/19 03:47 Blast Cells % 0 % 12/25/19 03:47 Nucleated RBC % Not Reportable 12/25/19 03:47 Seg Neutrophils # 10.5 K/mm3 (1.8-7.7) H 01/17/20 05:32 Seg Neutrophils # Man 35.3 K/mm3 (1.8-7.7) H 12/25/19 03:47 Band Neutrophils # 0.0 K/mm3 12/25/19 03:47 Lymphocytes # (Manual) 0.4 K/mm3 (1.2-5.4) L 12/25/19 03:47 Abs React Lymphs (Man) 0.0 K/mm3 12/25/19 03:47 Monocytes # (Manual) 0.5 K/mm3 (0.0-0.8) 12/25/19 03:47 Eosinophils # (Manual) 0.0 K/mm3 (0.0-0.4) 12/25/19 03:47 Basophils # (Manual) 0.0 K/mm3 (0.0-0.1) 12/25/19 03:47 Metamyelocytes # 0.0 K/mm3 12/25/19 03:47 Myelocytes # 0.0 K/mm3 12/25/19 03:47 Promyelocytes # 0.0 K/mm3 12/25/19 03:47 Blast Cells # 0.0 K/mm3 12/25/19 03:47 Pathologist Review 12/13/19 07:48 WBC Morphology Not Reportable 12/25/19 03:47 Hypersegmented Neuts Not Reportable 12/25/19 03:47 Hyposegmented Neuts Not Reportable 12/25/19 03:47 Hypogranular Neuts Not Reportable 12/25/19 03:47 Smudge Cells Not Reportable 12/25/19 03:47 Toxic Granulation Not Reportable 12/25/19 03:47 Toxic Vacuolation Not Reportable 12/25/19 03:47 Dohle Bodies Not Reportable 12/25/19 03:47 Pelger-Huet Anomaly Not Reportable 12/25/19 03:47 Dominique Rods Not Reportable 12/25/19 03:47 Platelet Estimate Consistent w auto 12/25/19 03:47 Clumped Platelets Not Reportable 12/25/19 03:47 Plt Clumps, EDTA Not Reportable 12/25/19 03:47 Large Platelets Not Reportable 12/25/19 03:47 Giant Platelets Not Reportable 12/25/19 03:47 Platelet Satelliting Not Reportable 12/25/19 03:47 Plt Morphology Comment Not Reportable 12/25/19 03:47 RBC Morphology Not Reportable 12/25/19 03:47 Dimorphic RBCs Not Reportable 12/25/19 03:47 Polychromasia Not Reportable 12/25/19 03:47 Hypochromasia Not Reportable 12/25/19 03:47 Poikilocytosis Not Reportable 12/25/19 03:47 Anisocytosis 1+ 12/25/19 03:47 Microcytosis Not Reportable 12/25/19 03:47 Macrocytosis Not Reportable 12/25/19 03:47 Spherocytes Not Reportable 12/25/19 03:47 Pappenheimer Bodies Not Reportable 12/25/19 03:47 Sickle Cells Not Reportable 12/25/19 03:47 Target Cells Not Reportable 12/25/19 03:47 Tear Drop Cells Not Reportable 12/25/19 03:47 Ovalocytes Not Reportable 12/25/19 03:47 Helmet Cells Not Reportable 12/25/19 03:47 [place] Bodies Not Reportable 12/25/19 03:47 [place] Rings Not Reportable 12/25/19 03:47 Jamshid Cells Not Reportable 12/25/19 03:47 Bite Cells Not Reportable 12/25/19 03:47 Crenated Cell Not Reportable 12/25/19 03:47 Elliptocytes Not Reportable 12/25/19 03:47 Acanthocytes (Spur) Not Reportable 12/25/19 03:47 Rouleaux Not Reportable 12/25/19 03:47 Hemoglobin C Crystals Not Reportable 12/25/19 03:47 Schistocytes Not Reportable 12/25/19 03:47 Malaria parasites Not Reportable 12/25/19 03:47 Gregg Bodies Not Reportable 12/25/19 03:47 Hem Pathologist Commnt No 12/25/19 03:47 PT 17.0 Sec. (12.2-14.9) H 11/23/19 03:47 INR 1.36 (0.87-1.13) H 11/23/19 03:47 APTT 128.2 Sec. (24.2-36.6) H* 11/23/19 03:47 Heparin Anti-Xa Level 0.31 U.I./ml (0.3-0.7) 11/23/19 09:03 ABG pH 7.429 pH Units (7.350-7.450) 01/09/20 08:51 ABG pCO2 39.1 mm Hg 01/09/20 08:51 ABG pO2 94.3 mm Hg (80.0-90.0) H 01/09/20 08:51 ABG HCO3 25.3 mmol/L (20.0-26.0) 01/09/20 08:51 ABG O2 Saturation 97.4 % (95.0-99.0) 01/09/20 08:51 ABG O2 Content 12.9 (0.0-44) 01/09/20 08:51 ABG Base Excess 1.0 mmol/L (-2.0-3.0) 01/09/20 08:51 ABG Hemoglobin 9.5 gm/dl (12.0-16.0) L 01/09/20 08:51 ABG Carboxyhemoglobin 1.3 % (0.0-5.0) 01/09/20 08:51 ABG Methemoglobin 0.4 % (0.0-1.5) 01/09/20 08:51 Oxyhemoglobin 95.7 % (95.0-99.0) 01/09/20 08:51 FiO2 35 % 04/22/20 08:51 Sodium 134 mmol/L (137-145) L 01/11/20 07:00 Potassium 4.1 mmol/L (3.6-5.0) 01/11/20 07:00 Chloride 97.7 mmol/L (98-107) L 01/11/20 07:00 Carbon Dioxide 21 mmol/L (22-30) L 01/11/20 07:00 Anion Gap 19 mmol/L 01/11/20 07:00 BUN 38 mg/dL (7-17) H 01/11/20 07:00 Creatinine 0.5 mg/dL (0.7-1.2) L 01/11/20 07:00 Estimated GFR > 60 ml/min 01/11/20 07:00 BUN/Creatinine Ratio 76 % 01/11/20 07:00 Glucose 168 mg/dL (65-100) H 01/11/20 07:00 POC Glucose 112 (70-105) H 01/17/20 06:47 Lactic Acid 1.80 mmol/L (0.7-2.0) 11/25/19 05:05 Calcium 10.5 mg/dL (8.4-10.2) H 01/11/20 07:00 Ionized Calcium 4.5 mg/dL (4.8-5.6) L 11/23/19 06:32 Phosphorus 4.20 mg/dL (2.5-4.5) D 11/28/19 08:59 Magnesium 2.30 mg/dL (1.7-2.3) 11/29/19 13:41 Total Bilirubin 0.40 mg/dL (0.1-1.2) 12/13/19 07:48 AST 27 units/L (5-40) 12/13/19 07:48 ALT 26 units/L (7-56) 12/13/19 07:48 Alkaline Phosphatase 316 units/L (35-129) H 12/13/19 07:48 Ammonia 42.0 umol/L (25-60) 11/29/19 13:41 Total Creatine Kinase 139 units/L (30-135) H 11/22/19 23:27 CK-MB (CK-2) 8.3 ng/mL (0.0-4.0) H 03/05/20 23:27 CK-MB (CK-2) Rel Index 5.9 (0-4) H 11/22/19 23:27 Troponin T < 0.010 ng/mL (0.00-0.029) 11/22/19 23:27 Total Protein 6.8 g/dL (6.3-8.2) 12/13/19 07:48 Albumin 2.4 g/dL (3.9-5) L 12/13/19 07:48 Albumin/Globulin Ratio 0.5 % 12/13/19 07:48 Lipase 18 units/L (13-60) 11/23/19 00:34 Procalcitonin 1.09 ng/mL (<0.15) 11/23/19 04:53 Urine Color Yellow (Yellow) 12/16/19 Unknown Urine Turbidity Slightly-cloudy (Clear) 12/16/19 Unknown Urine pH 5.0 (5.0-7.0) 12/16/19 Unknown Ur Specific [place] 1.018 (1.003-1.030) 12/16/19 Unknown Urine Protein 30 mg/dl mg/dL (Negative) 12/16/19 Unknown Urine Glucose (UA) Neg mg/dL (Negative) 12/16/19 Unknown Urine Ketones Neg mg/dL (Negative) 12/16/19 Unknown Urine Blood Sm (Negative) 12/16/19 Unknown Urine Nitrite Neg (Negative) 12/16/19 Unknown Urine Bilirubin Neg (Negative) 12/16/19 Unknown Urine Urobilinogen < 2.0 mg/dL (<2.0) 12/16/19 Unknown Ur Leukocyte Esterase Neg (Negative) 12/16/19 Unknown Urine WBC (Auto) 6.0 /HPF (0.0-6.0) 12/16/19 Unknown Urine RBC (Auto) 9.0 /HPF (0.0-6.0) 12/16/19 Unknown U Epithel Cells (Auto) < 1.0 /HPF (0-13.0) 12/16/19 Unknown Urine Bacteria (Auto) 2+ /HPF (Negative) 11/22/19 23:17 Hyaline Casts 3 /LPF 12/16/19 Unknown Granular Casts 3 /LPF 12/16/19 Unknown Urine Mucus Few /HPF 12/16/19 Unknown Vancomycin Trough 33.8 ug/mL (5.0-20.0) H 12/21/19 08:56 Random Vancomycin 16.2 ug/mL (0-40.0) 12/24/19 04:31 Salicylates < 0.3 mg/dL (2.8-20.0) L 11/22/19 23:27 Urine Opiates Screen Presumptive negative 11/22/19 23:17 Urine Methadone Screen Presumptive negative 11/22/19 23:17 Acetaminophen < 5.0 ug/mL (10.0-30.0) L 11/22/19 23:27 Ur Barbiturates Screen Presumptive negative 11/22/19 23:17 Ur Phencyclidine Scrn Presumptive negative 11/22/19 23:17 Ur Amphetamines Screen Presumptive negative 11/22/19 23:17 U Benzodiazepines Scrn Presumptive negative 11/22/19 23:17 Urine Cocaine Screen Presumptive negative 11/22/19 23:17 U Marijuana (THC) Screen Presumptive negative 11/22/19 23:17 Drugs of Abuse Note Disclamer 11/22/19 23:17 Plasma/Serum Alcohol 0.08 % (0-0.07) H 11/22/19 23:27 Hepatitis A IgM Ab Non-reactive (NonReactive) 11/23/19 01:19 Hep Bs Antigen Non-reactive (Negative) 11/23/19 01:19 Hep B Core IgM Ab Non-reactive (NonReactive) 11/23/19 01:19 Hepatitis C Antibody Non-reactive (NonReactive) 11/23/19 01:19 Blood Type O POSITIVE 12/21/19 14:54 Antibody Screen Negative 12/21/19 14:54 Crossmatch See Detail 12/21/19 14:54 - Diagnostic Impressions Diagnostic Impressions: Echocardiogram 11/23/19 03:58 Transthoracic Echocardiogram Indication: Cardiac arrest BP: 131/89 HR: 115 Conclusions *The study quality is technically difficult. *Global left ventricular wall motion and contractility are within normal limits. *The estimated ejection fraction is 55-60%. *Abnormal left ventricular diastolic filling is observed, consistent with impaired relaxation. *There is no pericardial effusion. Findings Procedure Info: The study quality is technically difficult. The study was technically limited due to the patient's inability to lay in the left lateral decubitus position. Left Ventricle: The left ventricular chamber size is normal. There is no left ventricular hypertrophy. Global left ventricular wall motion and contractility are within normal limits. Global left ventricular systolic function is normal. The estimated ejection fraction is 55-60%. Abnormal left ventricular diastolic filling is observed, consistent with impaired relaxation. Left Atrium: The left atrial chamber size is normal. Aortic Valve: The aortic valve leaflets are mildly thickened. Mitral Valve: The mitral valve leaflets are mildly thickened. There is no evidence of mitral regurgitation. Tricuspid Valve: The tricuspid valve leaflets are normal. There is trace tricuspid regurgitation. The right ventricular systolic pressure is calculated at 33 mmHg. Pulmonic Valve: The pulmonic valve appears normal. Pericardium: The pericardium appears normal. There is no pericardial effusion. Aorta: The aorta appears normal. Venous: The inferior vena cava appears normal in size. Measurements Chambers 2D Name Value Normal Range IVSd (2D) 0.94 cm (0.6 - 1.1) LVPWd (2D) 0.81 cm (0.6 - 1.1) LVIDd (2D) 3.6 cm (3.7 - 5.6) LVIDs (2D) 2.27 cm (2 - 3.8) LV FS (2D) 36.93 % - EF Teichholz (2D) 67.76 % - Ao root diameter (2D) 3.03 cm (2 - 3.7) Volumes/Mass Name Value Normal Range LA ESV SP 4CH (A/L) 16.89 ml - LA ESV SP 4CH (MOD) 15.52 ml - Diastolic/Systolic Function Name Value Normal Range MV E-wave Vmax 0.55 m/sec - MV deceleration time 200.89 msec - MV A-wave Vmax 0.68 m/sec - MV E:A ratio 0.82 ratio - Aortic Valve Name Value Normal Range AV Vmax 1.1 m/sec - AV VTI 15.9 cm - AV peak gradient 4.86 mmHg - AV mean gradient 2.59 mmHg - LVOT diameter 2 cm - LVOT Vmax 1.03 m/sec - LVOT VTI 15.87 cm - LVOT peak gradient 4.24 mmHg - LVOT mean gradient 2.41 mmHg - SV LVOT 49.77 ml - JOSÉ MIGUEL (continuity Vmax) 2.93 cm2 - JOSÉ MIGUEL (continuity VTI) 3.13 cm2 - Tricuspid Valve Name Value Normal Range TR Vmax 2.74 m/sec - TR peak gradient 303 mmHg - RAP 3 mmHg - RVSP 33 mmHg - IVC diameter 1.77 cm (1.2 - 2.3) Pulmonic Valve/Qp:Qs Name Value Normal Range PV Vmax 0.77 m/sec - PV peak gradient 2.4 mmHg - PV acceleration time 114.18 msec - Echocardiogram Limited Views 12/17/19 14:53 Transthoracic Echocardiogram Indication: R/O Vegetations BP: 144/83 HR: 133 Conclusions *Global left ventricular systolic function is mildly decreased. *The estimated ejection fraction is 45-50%. *A trivial pericardial effusion is visualized. Findings Left Ventricle: The left ventricular chamber size is normal. Global left ventricular systolic function is mildly decreased. The estimated ejection fraction is 45-50%. Left Atrium: The left atrial chamber size is normal. Right Ventricle: The right ventricular cavity size is normal. Right Atrium: The right atrial cavity size is normal. Aortic Valve: The aortic valve is not well visualized. There is no evidence of aortic regurgitation. Mitral Valve: The mitral valve leaflets are mildly thickened. There is trace of mitral regurgitation. Tricuspid Valve: The tricuspid valve leaflets are mildly thickened. There is trace tricuspid regurgitation. The right ventricular systolic pressure is calculated at 29 mmHg. Pulmonic Valve: The pulmonic valve is not well visualized. There is no evidence of pulmonic regurgitation. Pericardium: A trivial pericardial effusion is visualized. Aorta: There is no dilatation of the ascending aorta. There is no dilatation of the aortic root. Venous: The inferior vena cava appears normal in size. There is a greater than 50% respiratory change in the inferior vena cava dimension. Measurements Chambers 2D Name Value Normal Range IVSd (2D) 0.83 cm (0.6 - 1.1) LVPWd (2D) 0.98 cm (0.6 - 1.1) LVIDd (2D) 3.71 cm (3.7 - 5.6) LVIDs (2D) 2.93 cm (2 - 3.8) LV FS (2D) 21.12 % - EF Teichholz (2D) 43.71 % - Ao root diameter (2D) 3.02 cm (2 - 3.7) Volumes/Mass Name Value Normal Range LA ESV SP 4CH (A/L) 36.8 ml - LA ESV SP 2CH (A/L) 45.89 ml - LA ESV BP (A/L) 42.35 ml - LA ESV BP (A/L) index 26.63 ml/m2 - LA ESV SP 4CH (MOD) 34.42 ml - LA ESV SP 2CH (MOD) 44.21 ml - LA ESV BP (MOD) 39.82 ml - LA ESV BP (MOD) index 25.05 ml/m2 - Aortic Valve Name Value Normal Range LVOT diameter 1.63 cm - Tricuspid Valve Name Value Normal Range TR Vmax 2.56 m/sec - TR peak gradient 26 mmHg - RAP 3 mmHg - RVSP 29 mmHg - IVC diameter 1.83 cm (1.2 - 2.3) Dela Cruz/IV: Voiding Method External Female Catheter IV Catheter Type [Forearm] Peripheral IV IV Catheter Type [Left Forearm Peripheral IV ] IV Catheter Type [Right Peripheral IV Antecubital] IV Catheter Type [Right Hand] Peripheral IV IV Catheter Type [Right Wrist] Peripheral IV IV Catheter Type [Left Wrist] Peripheral IV IV Catheter Type [Left Peripheral IV Antecubital] IV Catheter Type [Right INT / Saline Lock Forearm] IV Catheter Type [Left Hand] Peripheral IV Active Medications - Current Medications Current Medications: Generic Name Dose Route Start Last Admin Trade Name Freq PRN Reason Stop Dose Admin Acetaminophen 650 mg 12/06/19 10:25 01/15/20 22:15 Tylenol FEEDTUBE 650 mg Q6H PRN Administration TEMP >/=100.3 Lipase/Protease/Amylase 1 each 11/23/19 11:[address] 10,500 Unit FEEDTUBE PRN PRN Use w/ sod bicarb for FT Fentanyl 50 mcg 12/05/19 02:10 12/12/19 20:04 Sublimaze IV 50 mcg Q10MIN PRN Administration ANALGESIA Glycopyrrolate 2 mg 12/31/19 20:00 01/17/20 10:19 Robinul PO 2 mg TID LUCHO Administration Hydralazine HCl 10 mg 11/24/19 00:45 12/18/19 13:25 Apresoline IV 10 mg Q6H PRN Administration SBP > 160 Hydroxyzine Pamoate 25 mg 12/06/19 10:00 01/17/20 10:19 Vistaril PO 25 mg BID LUCHO Administration Sodium Chloride 1,000 mls @ 100 mls/hr 01/16/20 13:00 Nacl 0.9% 1000 Ml IV 01/17/20 22:59 DIRECT LUCHO Lansoprazole 30 mg 11/27/19 10:00 01/17/20 10:20 Prevacid Solutab FEEDTUBE 30 mg QDAY LUCHO Administration Levetiracetam 500 mg 11/29/19 10:00 01/17/20 10:19 Keppra PO 500 mg BID LUCHO Administration Mirtazapine 30 mg 12/06/19 10:00 01/17/20 10:19 Remeron PO 30 mg DAILY LUCHO Administration Morphine Sulfate 2 mg 12/12/19 18:40 01/15/20 09:26 Morphine IV 2 mg Q4H PRN Administration Pain, Moderate (4-6) Ondansetron HCl 4 mg 12/10/19 07:53 01/06/20 10:53 Zofran IV 4 mg Q4H PRN Administration Nausea And Vomiting Quetiapine Fumarate 100 mg 01/09/20 21:41 01/16/20 21:14 Seroquel FEEDTUBE 100 mg QHS LUCHO Administration Senna/Docusate Sodium 2 tab 12/24/19 07:00 Senokot S PO BID PRN CONSTIPATION Sertraline HCl 25 mg 01/01/20 10:00 01/17/20 10:19 Zoloft PO 25 mg QDAY LUCHO Administration Simple Syrup 15 ml 11/23/19 11:50 Simple Syrup FEEDTUBE PRN PRN Hypoglycemia BG<70 Simple Syrup 30 ml 11/23/19 11:50 Simple Syrup FEEDTUBE PRN PRN Hypoglycemia Sodium Bicarbonate 325 mg 11/23/19 11:50 Sodium Bicarbonate FEEDTUBE PRN PRN For Clogged Feeding Tube Tamsulosin HCl 0.4 mg 12/14/19 13:00 01/17/20 10:19 Flomax PO 0.4 mg QDAY LUCHO Administration Nutrition/Malnutrition Assess - Dietary Evaluation Nutrition/Malnutrition Findings: Nutrition Notes Start: 11/23/19 11:29 Freq: Status: Active Protocol: Document 01/14/20 13:05 LM (Rec: 01/14/20 13:09 [email or web address] [email or web address]) Nutrition Notes Initial or Follow up Reassessment Current Diagnosis Hypertension Other Pertinent Diagnosis Cardaic arrest, ETOH dependence, UTI Current Diet Jevity 1.2 at 55ml/hr Labs/Tests POC glu 146 Pertinent Medications Reviewed Height 5 ft 6 in Weight 52.7 kg [place] Body Weight (kg) 59.09 BMI 18.7 Subjective/Other Information Pt tolerating Jevity at 55ml/ hr per RN notes. Percent of energy/protein needs met: 97%/100% Burn Absent Trauma Absent GI Symptoms None Current % PO Negligible Minimum of two criteria Yes Interpretation of Weight Loss (severe) >2% in 1 week Muscle Mass Mild Depletion (non-severe) #2 Nutrition Diagnosis Malnutrition Diagnosis Progress(for reassessment Continues documentation) #1 Nutrition Diagnosis Inadequate oral intake Diagnosis Progress(for reassessment Continues documentation) Is patient on ventilator? No Is Patient Ambulatory and/or Out of Bed No REE-([place]-St. Jeor-confined to bed) 1377.048 Kcal/Kg value to use for calculation 31 Approximate Energy Requirements Using 1634 kcal/Kg Calculation [facility] [place] Additional Notes Protein: 64-80g (1.2-1.5g/kg) Fluid: 1 ml/kcal Nutrition Intervention Change Diet Order: Continue TF Nutrition Support: Jevity 1.2 at 55ml/hr Flush 50ml q6h for hyponatremia Flush 90ml q4h once resolved Kcal 1,584 Protein (gm) 73 Fluid (mL) 1,065 Goal #1 TF tolerance Goal #2 Meet at least 80% of energy and protein needs via TF Anticipated Discharge Needs: TF Follow-Up By: 01/17/20 Additional Comments F/U for TF tolerance, Na
[2020-01-17] MEDS: SODIUM CHLORIDE 0.9% 1000 ML 1,000 ML IV SCH ×2 (12:30→22:37)
--- NOTE | 2020-01-17 12:36 | Progress Note ---
Assessment and Plan Acute cardiopulmonary arrest with ROSC Acute hypoxemic respiratory failure s/p MVS s/p Tracheostomy Oropharyngeal dysphagia s/p PEG MRSA Bacteremia- treated MRSA pneumonia-treated Acute [id number] encephalopathy Metabolic acidosis/alcoholic acidosis/Lactic acidosis( resolved) Ischemic hepatitis Erythrocytosis Tobacco use disorder Alcohol use Disorder -CBC, BMP in am -Replace and correct electrolytes as indicated -Trach care, airway clearance, secretion management( continue scopolamine patch and Robinul) -CXR, ABG prn -Weaning trials as tolerated- ATP then PMV and possible capping as tolerated by secretions -Continue contact isolation for MRSA -Trend WCC and temperature curve -Continue all care as documented below. -PT/OT -Supportive transfusions as indicated fro HgB <7g/dL -Continue aspiration precautions, HOB>40 -Continue Stress ulcer prophylaxis -Continue enteric nutritional support at goal rate. -Continue to monitor glycemic control, with target blood glucose 140-180 mg/dL while critically ill. -Avoid hypoglycemia - Continue to wean supplemental oxygen for target O2 sat's > 90% -Continue thiamine, multivitamin and electrolyte replacement -Continue to avoid nephrotoxins, adjust all medications for GFR and CrCL - Continue bronchodilators with pulmonary hygiene - Continue prn analgesia per CPOT score - Continue to maintain of sleep-wake cycle, avoid delirium - Continue mobility protocol and skin assessment per protocol for pressure ulcer prevention - Continue to monitor for clinical seizures - continue other care per attending / other consultants CONDITION: FAIR PROGNOSIS: GUARDED CODE STATUS: DNAR Subjective Date of service: 01/17/20 Principal diagnosis: Ac cardiopulmonary arrest; Ac hypoxemic resp failure; Acute encephalopathy Interval history: Patient is seen today for: Acute cardiopulmonary arrest with ROSC; Acute hypoxemic respiratory failure; Acute metabolic-toxic encephalopathy; Ischemic hepatitis; Leucocytosis with lactic acidosis; Tobacco use disorder; Alcohol use Disorder; s/p tracheostomy; s/p PEG Seen and examined at bedside; 24hour events reviewed; nursing and respiratory care staff consulted; no adverse overnight events reported to me; resting peacefully in bed; tolerating ATP trials, seen by PT/OT Secretions preclude PMV trials at this time, more awake and alert, more interactive No fevers, no vomiting, continues to tolerate tube feedings Objective Vital Signs - 12hr 01/17/20 01/17/20 01/17/20 01:00 02:00 03:00 Temperature Pulse Rate 101 H 111 H 102 H Pulse Rate [ Right Dorsalis Pedis] Respiratory 23 24 26 H Rate Blood Pressure 119/78 119/78 119/78 O2 Sat by Pulse 100 99 99 Oximetry O2 Sat by Pulse Oximetry [ Assessment] 01/17/20 01/17/20 01/17/20 04:00 05:00 06:00 Temperature Pulse Rate 103 H 106 H 109 H Pulse Rate [ 110 H Right Dorsalis Pedis] Respiratory 24 22 24 Rate Blood Pressure 119/67 119/67 119/67 O2 Sat by Pulse 99 99 100 Oximetry O2 Sat by Pulse Oximetry [ Assessment] 01/17/20 01/17/20 01/17/20 08:00 10:00 10:01 Temperature 98.0 F Pulse Rate Pulse Rate [ Right Dorsalis Pedis] Respiratory Rate Blood Pressure O2 Sat by Pulse 98 Oximetry O2 Sat by Pulse 98 Oximetry [ Assessment] Constitutional: no acute distress, alert, other (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, with midline tracheostomy, ATP with copious thin secretions) Eyes: non-icteric ENT: oropharynx moist, other (s/p trach) Neck: supple, no lymphadenopathy, no JVD Effort: normal Ascultation: Bilateral: diminished breath sounds, rhonchi Percussion: Bilateral: not dull Cardiovascular: regular rate and rhythm (tachycardia), other (S1,S2) Gastrointestinal: normoactive bowel sounds, soft, non-tender, non-distended Integumentary: normal Extremities: no cyanosis, no edema, pulses normal, no ischemia or petechiae Neurologic: pupils equal and round, other (trying to mouth words in response to questions,obeying one step commands) Psychiatric: other (Psychiatric: Unable to assess re: AMS) CBC and BMP: 01/17/20 05:32 01/11/20 07:00 ABG, PT/INR, D-dimer: ABG ABG pH 7.429 pH Units (7.350-7.450) 01/09/20 08:51 ABG pCO2 39.1 mm Hg 01/09/20 08:51 ABG pO2 94.3 mm Hg (80.0-90.0) H 01/09/20 08:51 ABG O2 Saturation 97.4 % (95.0-99.0) 01/09/20 08:51 PT/INR, D-dimer PT 17.0 Sec. (12.2-14.9) H 11/23/19 03:47 INR 1.36 (0.87-1.13) H 11/23/19 03:47 Abnormal lab findings: Abnormal Labs 11/22/19 11/22/19 11/22/19 23:17 23:18 23:27 WBC 21.2 H RBC 3.59 L Hgb 9.8 L Hct MCH 27 L RDW 18.6 H Plt Count 454 H Lymph % (Auto) [place] % (Auto) [place] # Baso # Seg Neutrophils % Seg Neuts % (Manual) 86.0 H Lymphocytes % (Manual) 9.0 L Monocytes % (Manual) Seg Neutrophils # Seg Neutrophils # Man 18.2 H Lymphocytes # (Manual) Monocytes # (Manual) 1.1 H Eosinophils # (Manual) Basophils # (Manual) PT INR APTT ABG pH ABG pO2 ABG HCO3 ABG O2 Saturation ABG Base Excess ABG Hemoglobin Oxyhemoglobin Sodium Potassium Chloride Carbon Dioxide BUN Creatinine Glucose POC Glucose 53 L Lactic Acid Calcium Ionized Calcium Phosphorus Magnesium Total Bilirubin AST ALT Alkaline Phosphatase Ammonia Total Creatine Kinase CK-MB (CK-2) CK-MB (CK-2) Rel Index Total Protein Albumin Urine WBC (Auto) 40.0 H Vancomycin Trough Salicylates Acetaminophen Plasma/Serum Alcohol Crossmatch 11/22/19 11/22/19 11/22/19 23:27 23:27 23:27 WBC RBC Hgb Hct MCH RDW Plt Count Lymph % (Auto) [place] % (Auto) [place] # Baso # Seg Neutrophils % Seg Neuts % (Manual) Lymphocytes % (Manual) Monocytes % (Manual) Seg Neutrophils # Seg Neutrophils # Man Lymphocytes # (Manual) Monocytes # (Manual) Eosinophils # (Manual) Basophils # (Manual) PT INR APTT ABG pH ABG pO2 ABG HCO3 ABG O2 Saturation ABG Base Excess ABG Hemoglobin Oxyhemoglobin Sodium Potassium 2.4 L* Chloride 85.1 L Carbon Dioxide 19 L BUN Creatinine 0.5 L Glucose 261 H POC Glucose Lactic Acid Calcium Ionized Calcium Phosphorus Magnesium Total Bilirubin AST 609 H ALT 152 H Alkaline Phosphatase 160 H Ammonia 117.0 H Total Creatine Kinase 139 H CK-MB (CK-2) 8.3 H CK-MB (CK-2) Rel Index 5.9 H Total Protein Albumin 3.6 L Urine WBC (Auto) Vancomycin Trough Salicylates < 0.3 L Acetaminophen Plasma/Serum Alcohol Crossmatch 11/22/19 11/22/19 11/23/19 23:27 23:27 01:10 WBC RBC Hgb Hct MCH RDW Plt Count Lymph % (Auto) [place] % (Auto) [place] # Baso # Seg Neutrophils % Seg Neuts % (Manual) Lymphocytes % (Manual) Monocytes % (Manual) Seg Neutrophils # Seg Neutrophils # Man Lymphocytes # (Manual) Monocytes # (Manual) Eosinophils # (Manual) Basophils # (Manual) PT INR APTT ABG pH 7.273 L ABG pO2 209.7 H ABG HCO3 ABG O2 Saturation 99.2 H ABG Base Excess -3.9 L ABG Hemoglobin 10.6 L Oxyhemoglobin 93.9 L Sodium Potassium Chloride Carbon Dioxide BUN Creatinine Glucose POC Glucose Lactic Acid Calcium Ionized Calcium Phosphorus Magnesium Total Bilirubin AST ALT Alkaline Phosphatase Ammonia Total Creatine Kinase CK-MB (CK-2) CK-MB (CK-2) Rel Index Total Protein Albumin Urine WBC (Auto) Vancomycin Trough Salicylates Acetaminophen < 5.0 L Plasma/Serum Alcohol 0.08 H Crossmatch 11/23/19 11/23/19 11/23/19 01:19 01:19 03:47 WBC RBC Hgb Hct MCH RDW Plt Count Lymph % (Auto) [place] % (Auto) [place] # Baso # Seg Neutrophils % Seg Neuts % (Manual) Lymphocytes % (Manual) Monocytes % (Manual) Seg Neutrophils # Seg Neutrophils # Man Lymphocytes # (Manual) Monocytes # (Manual) Eosinophils # (Manual) Basophils # (Manual) PT 16.3 H INR 1.29 H APTT ABG pH ABG pO2 ABG HCO3 ABG O2 Saturation ABG Base Excess ABG Hemoglobin Oxyhemoglobin Sodium Potassium Chloride Carbon Dioxide BUN Creatinine Glucose POC Glucose Lactic Acid 2.10 H* 5.00 H* Calcium Ionized Calcium Phosphorus Magnesium Total Bilirubin AST ALT Alkaline Phosphatase Ammonia Total Creatine Kinase CK-MB (CK-2) CK-MB (CK-2) Rel Index Total Protein Albumin Urine WBC (Auto) Vancomycin Trough Salicylates Acetaminophen Plasma/Serum Alcohol Crossmatch 11/23/19 11/23/19 11/23/19 03:47 03:47 04:53 WBC RBC Hgb 9.4 L Hct MCH RDW Plt Count Lymph % (Auto) [place] % (Auto) [place] # Baso # Seg Neutrophils % Seg Neuts % (Manual) Lymphocytes % (Manual) Monocytes % (Manual) Seg Neutrophils # Seg Neutrophils # Man Lymphocytes # (Manual) Monocytes # (Manual) Eosinophils # (Manual) Basophils # (Manual) PT 17.0 H INR 1.36 H APTT 128.2 H* ABG pH ABG pO2 ABG HCO3 ABG O2 Saturation ABG Base Excess ABG Hemoglobin Oxyhemoglobin Sodium Potassium Chloride Carbon Dioxide 18 L BUN Creatinine 0.5 L Glucose 105 H POC Glucose Lactic Acid Calcium 8.3 L Ionized Calcium Phosphorus 2.40 L Magnesium Total Bilirubin 1.30 H AST 761 H ALT 158 H Alkaline Phosphatase 143 H Ammonia Total Creatine Kinase CK-MB (CK-2) CK-MB (CK-2) Rel Index Total Protein Albumin 2.8 L Urine WBC (Auto) Vancomycin Trough Salicylates Acetaminophen Plasma/Serum Alcohol Crossmatch 11/23/19 11/23/19 11/23/19 05:12 06:32 06:32 WBC 16.8 H RBC 3.31 L Hgb 8.9 L Hct 28.7 L MCH 27 L RDW 18.6 H Plt Count Lymph % (Auto) [place] % (Auto) [place] # Baso # Seg Neutrophils % Seg Neuts % (Manual) 94.0 H Lymphocytes % (Manual) 1.0 L Monocytes % (Manual) Seg Neutrophils # Seg Neutrophils # Man 15.8 H Lymphocytes # (Manual) 0.2 L Monocytes # (Manual) Eosinophils # (Manual) Basophils # (Manual) PT INR APTT ABG pH ABG pO2 ABG HCO3 ABG O2 Saturation ABG Base Excess -3.2 L ABG Hemoglobin 9.0 L Oxyhemoglobin 93.6 L Sodium Potassium Chloride Carbon Dioxide BUN Creatinine Glucose POC Glucose Lactic Acid Calcium Ionized Calcium 4.5 L Phosphorus Magnesium Total Bilirubin AST ALT Alkaline Phosphatase Ammonia Total Creatine Kinase CK-MB (CK-2) CK-MB (CK-2) Rel Index Total Protein Albumin Urine WBC (Auto) Vancomycin Trough Salicylates Acetaminophen Plasma/Serum Alcohol Crossmatch 11/23/19 11/24/19 11/24/19 06:32 04:35 04:35 WBC RBC Hgb Hct MCH RDW Plt Count Lymph % (Auto) [place] % (Auto) [place] # Baso # Seg Neutrophils % Seg Neuts % (Manual) Lymphocytes % (Manual) Monocytes % (Manual) Seg Neutrophils # Seg Neutrophils # Man Lymphocytes # (Manual) Monocytes # (Manual) Eosinophils # (Manual) Basophils # (Manual) PT INR APTT ABG pH ABG pO2 ABG HCO3 ABG O2 Saturation ABG Base Excess ABG Hemoglobin Oxyhemoglobin Sodium Potassium Chloride Carbon Dioxide BUN Creatinine Glucose POC Glucose Lactic Acid 3.30 H* Calcium Ionized Calcium Phosphorus Magnesium 1.40 L Total Bilirubin AST ALT Alkaline Phosphatase Ammonia 98.0 H Total Creatine Kinase CK-MB (CK-2) CK-MB (CK-2) Rel Index Total Protein Albumin Urine WBC (Auto) Vancomycin Trough Salicylates Acetaminophen Plasma/Serum Alcohol Crossmatch 11/24/19 11/25/19 11/25/19 05:22 04:34 05:05 WBC 17.3 H RBC 2.88 L Hgb 7.8 L Hct 24.6 L MCH 27 L RDW 18.5 H Plt Count Lymph % (Auto) 7.7 L [place] % (Auto) 9.7 H [place] # 1.7 H Baso # Seg Neutrophils % 82.2 H Seg Neuts % (Manual) Lymphocytes % (Manual) Monocytes % (Manual) Seg Neutrophils # 14.2 H Seg Neutrophils # Man Lymphocytes # (Manual) Monocytes # (Manual) Eosinophils # (Manual) Basophils # (Manual) PT INR APTT ABG pH 7.475 H ABG pO2 ABG HCO3 29.4 H 32.3 H ABG O2 Saturation ABG Base Excess 5.4 H 6.9 H ABG Hemoglobin 9.0 L 10.6 L Oxyhemoglobin 94.3 L Sodium Potassium Chloride Carbon Dioxide BUN Creatinine Glucose POC Glucose Lactic Acid Calcium Ionized Calcium Phosphorus Magnesium Total Bilirubin AST ALT Alkaline Phosphatase Ammonia Total Creatine Kinase CK-MB (CK-2) CK-MB (CK-2) Rel Index Total Protein Albumin Urine WBC (Auto) Vancomycin Trough Salicylates Acetaminophen Plasma/Serum Alcohol Crossmatch 11/25/19 11/25/19 11/26/19 05:05 22:46 03:31 WBC RBC Hgb Hct MCH RDW Plt Count Lymph % (Auto) [place] % (Auto) [place] # Baso # Seg Neutrophils % Seg Neuts % (Manual) Lymphocytes % (Manual) Monocytes % (Manual) Seg Neutrophils # Seg Neutrophils # Man Lymphocytes # (Manual) Monocytes # (Manual) Eosinophils # (Manual) Basophils # (Manual) PT INR APTT ABG pH 7.459 H ABG pO2 ABG HCO3 34.2 H ABG O2 Saturation ABG Base Excess 9.4 H ABG Hemoglobin 7.6 L Oxyhemoglobin 94.8 L Sodium 152 H D 147 H Potassium 2.3 L* D 2.8 L* D Chloride 107.8 H Carbon Dioxide 31 H D 33 H BUN Creatinine 0.6 L 0.6 L Glucose 148 H 177 H POC Glucose Lactic Acid Calcium Ionized Calcium Phosphorus Magnesium Total Bilirubin AST 105 H ALT 71 H Alkaline Phosphatase 155 H Ammonia Total Creatine Kinase CK-MB (CK-2) CK-MB (CK-2) Rel Index Total Protein 5.2 L D Albumin 2.9 L Urine WBC (Auto) Vancomycin Trough Salicylates Acetaminophen Plasma/Serum Alcohol Crossmatch 11/26/19 11/26/19 11/27/19 08:24 08:24 04:20 WBC 12.0 H RBC 3.00 L Hgb 8.0 L 9.3 L Hct 25.9 L 29.7 L MCH 27 L RDW 18.5 H Plt Count Lymph % (Auto) [place] % (Auto) [place] # Baso # Seg Neutrophils % Seg Neuts % (Manual) 89.0 H Lymphocytes % (Manual) 4.0 L Monocytes % (Manual) Seg Neutrophils # Seg Neutrophils # Man 10.7 H Lymphocytes # (Manual) 0.5 L Monocytes # (Manual) Eosinophils # (Manual) Basophils # (Manual) PT INR APTT ABG pH ABG pO2 ABG HCO3 ABG O2 Saturation ABG Base Excess ABG Hemoglobin Oxyhemoglobin Sodium 146 H Potassium 3.4 L D Chloride Carbon Dioxide BUN Creatinine 0.5 L Glucose 165 H POC Glucose Lactic Acid Calcium Ionized Calcium Phosphorus Magnesium Total Bilirubin AST 57 H ALT Alkaline Phosphatase 166 H Ammonia Total Creatine Kinase CK-MB (CK-2) CK-MB (CK-2) Rel Index Total Protein Albumin 2.9 L Urine WBC (Auto) Vancomycin Trough Salicylates Acetaminophen Plasma/Serum Alcohol Crossmatch 11/27/19 11/27/19 11/27/19 04:28 04:28 04:42 WBC RBC Hgb Hct MCH RDW Plt Count Lymph % (Auto) [place] % (Auto) [place] # Baso # Seg Neutrophils % Seg Neuts % (Manual) Lymphocytes % (Manual) Monocytes % (Manual) Seg Neutrophils # Seg Neutrophils # Man Lymphocytes # (Manual) Monocytes # (Manual) Eosinophils # (Manual) Basophils # (Manual) PT INR APTT ABG pH 7.470 H ABG pO2 74.0 L ABG HCO3 33.8 H ABG O2 Saturation ABG Base Excess 9.1 H ABG Hemoglobin 8.7 L Oxyhemoglobin 94.7 L Sodium 146 H Potassium 2.9 L* Chloride Carbon Dioxide BUN 25 H Creatinine Glucose 213 H POC Glucose Lactic Acid Calcium Ionized Calcium Phosphorus 1.00 L Magnesium Total Bilirubin AST ALT Alkaline Phosphatase Ammonia Total Creatine Kinase CK-MB (CK-2) CK-MB (CK-2) Rel Index Total Protein Albumin Urine WBC (Auto) Vancomycin Trough Salicylates Acetaminophen Plasma/Serum Alcohol Crossmatch 11/27/19 11/27/19 11/27/19 05:37 12:20 15:46 WBC RBC Hgb Hct MCH RDW Plt Count Lymph % (Auto) [place] % (Auto) [place] # Baso # Seg Neutrophils % Seg Neuts % (Manual) Lymphocytes % (Manual) Monocytes % (Manual) Seg Neutrophils # Seg Neutrophils # Man Lymphocytes # (Manual) Monocytes # (Manual) Eosinophils # (Manual) Basophils # (Manual) PT INR APTT ABG pH ABG pO2 ABG HCO3 ABG O2 Saturation ABG Base Excess ABG Hemoglobin Oxyhemoglobin Sodium 146 H Potassium 3.5 L D Chloride Carbon Dioxide BUN 24 H Creatinine 0.6 L Glucose 187 H POC Glucose 117 H 220 H Lactic Acid Calcium Ionized Calcium Phosphorus Magnesium Total Bilirubin AST ALT Alkaline Phosphatase Ammonia Total Creatine Kinase CK-MB (CK-2) CK-MB (CK-2) Rel Index Total Protein Albumin Urine WBC (Auto) Vancomycin Trough Salicylates Acetaminophen Plasma/Serum Alcohol Crossmatch 11/27/19 11/28/19 11/28/19 17:28 05:00 05:02 WBC RBC Hgb Hct MCH RDW Plt Count Lymph % (Auto) [place] % (Auto) [place] # Baso # Seg Neutrophils % Seg Neuts % (Manual) Lymphocytes % (Manual) Monocytes % (Manual) Seg Neutrophils # Seg Neutrophils # Man Lymphocytes # (Manual) Monocytes # (Manual) Eosinophils # (Manual) Basophils # (Manual) PT INR APTT ABG pH ABG pO2 72.4 L ABG HCO3 33.6 H ABG O2 Saturation 94.1 L ABG Base Excess 7.3 H ABG Hemoglobin Oxyhemoglobin 91.8 L Sodium 146 H Potassium 3.3 L Chloride Carbon Dioxide BUN 25 H Creatinine 0.6 L Glucose 176 H POC Glucose 198 H Lactic Acid Calcium Ionized Calcium Phosphorus Magnesium Total Bilirubin AST ALT Alkaline Phosphatase Ammonia Total Creatine Kinase CK-MB (CK-2) CK-MB (CK-2) Rel Index Total Protein Albumin Urine WBC (Auto) Vancomycin Trough Salicylates Acetaminophen Plasma/Serum Alcohol Crossmatch 11/28/19 11/28/19 11/29/19 05:02 18:55 10:43 WBC 15.2 H 19.0 H RBC 3.06 L 3.01 L Hgb 8.3 L 8.3 L Hct 27.0 L 26.4 L MCH 27 L RDW 19.0 H 19.7 H Plt Count 479 H 611 H Lymph % (Auto) [place] % (Auto) [place] # Baso # Seg Neutrophils % Seg Neuts % (Manual) 92.0 H Lymphocytes % (Manual) 2.0 L Monocytes % (Manual) Seg Neutrophils # Seg Neutrophils # Man 14.0 H Lymphocytes # (Manual) 0.3 L Monocytes # (Manual) Eosinophils # (Manual) Basophils # (Manual) PT INR APTT ABG pH ABG pO2 ABG HCO3 ABG O2 Saturation ABG Base Excess ABG Hemoglobin Oxyhemoglobin Sodium Potassium Chloride Carbon Dioxide BUN Creatinine Glucose POC Glucose 138 H Lactic Acid Calcium Ionized Calcium Phosphorus Magnesium Total Bilirubin AST ALT Alkaline Phosphatase Ammonia Total Creatine Kinase CK-MB (CK-2) CK-MB (CK-2) Rel Index Total Protein Albumin Urine WBC (Auto) Vancomycin Trough Salicylates Acetaminophen Plasma/Serum Alcohol Crossmatch 11/29/19 11/29/19 11/29/19 10:43 12:27 19:25 WBC RBC Hgb Hct MCH RDW Plt Count Lymph % (Auto) [place] % (Auto) [place] # Baso # Seg Neutrophils % Seg Neuts % (Manual) Lymphocytes % (Manual) Monocytes % (Manual) Seg Neutrophils # Seg Neutrophils # Man Lymphocytes # (Manual) Monocytes # (Manual) Eosinophils # (Manual) Basophils # (Manual) PT INR APTT ABG pH ABG pO2 ABG HCO3 ABG O2 Saturation ABG Base Excess ABG Hemoglobin Oxyhemoglobin Sodium Potassium 2.8 L* Chloride Carbon Dioxide BUN 20 H Creatinine 0.5 L Glucose 121 H POC Glucose 128 H 120 H Lactic Acid Calcium Ionized Calcium Phosphorus Magnesium Total Bilirubin AST ALT Alkaline Phosphatase Ammonia Total Creatine Kinase CK-MB (CK-2) CK-MB (CK-2) Rel Index Total Protein Albumin Urine WBC (Auto) Vancomycin Trough Salicylates Acetaminophen Plasma/Serum Alcohol Crossmatch 11/29/19 11/30/19 11/30/19 23:46 04:10 05:02 WBC RBC Hgb Hct MCH RDW Plt Count Lymph % (Auto) [place] % (Auto) [place] # Baso # Seg Neutrophils % Seg Neuts % (Manual) Lymphocytes % (Manual) Monocytes % (Manual) Seg Neutrophils # Seg Neutrophils # Man Lymphocytes # (Manual) Monocytes # (Manual) Eosinophils # (Manual) Basophils # (Manual) PT INR APTT ABG pH ABG pO2 76.3 L ABG HCO3 32.5 H ABG O2 Saturation ABG Base Excess 6.9 H ABG Hemoglobin 8.0 L Oxyhemoglobin 92.6 L Sodium Potassium Chloride Carbon Dioxide BUN Creatinine Glucose POC Glucose 116 H 128 H Lactic Acid Calcium Ionized Calcium Phosphorus Magnesium Total Bilirubin AST ALT Alkaline Phosphatase Ammonia Total Creatine Kinase CK-MB (CK-2) CK-MB (CK-2) Rel Index Total Protein Albumin Urine WBC (Auto) Vancomycin Trough Salicylates Acetaminophen Plasma/Serum Alcohol Crossmatch 11/30/19 11/30/19 11/30/19 05:25 05:25 12:59 WBC 18.4 H RBC 3.10 L Hgb 8.5 L Hct 27.5 L MCH 27 L RDW 20.9 H Plt Count 691 H Lymph % (Auto) 7.1 L [place] % (Auto) 7.7 H [place] # 1.4 H Baso # Seg Neutrophils % 83.4 H Seg Neuts % (Manual) Lymphocytes % (Manual) Monocytes % (Manual) Seg Neutrophils # 15.4 H Seg Neutrophils # Man Lymphocytes # (Manual) Monocytes # (Manual) Eosinophils # (Manual) Basophils # (Manual) PT INR APTT ABG pH ABG pO2 ABG HCO3 ABG O2 Saturation ABG Base Excess ABG Hemoglobin Oxyhemoglobin Sodium 146 H Potassium Chloride 107.2 H Carbon Dioxide BUN Creatinine 0.5 L Glucose 132 H POC Glucose 124 H Lactic Acid Calcium Ionized Calcium Phosphorus Magnesium Total Bilirubin AST 246 H ALT 274 H Alkaline Phosphatase 203 H Ammonia Total Creatine Kinase CK-MB (CK-2) CK-MB (CK-2) Rel Index Total Protein 5.4 L Albumin 2.9 L Urine WBC (Auto) Vancomycin Trough Salicylates Acetaminophen Plasma/Serum Alcohol Crossmatch 11/30/19 12/01/19 12/01/19 17:53 00:05 05:10 WBC RBC Hgb Hct MCH RDW Plt Count Lymph % (Auto) [place] % (Auto) [place] # Baso # Seg Neutrophils % Seg Neuts % (Manual) Lymphocytes % (Manual) Monocytes % (Manual) Seg Neutrophils # Seg Neutrophils # Man Lymphocytes # (Manual) Monocytes # (Manual) Eosinophils # (Manual) Basophils # (Manual) PT INR APTT ABG pH ABG pO2 ABG HCO3 ABG O2 Saturation ABG Base Excess ABG Hemoglobin Oxyhemoglobin Sodium Potassium Chloride Carbon Dioxide BUN Creatinine Glucose POC Glucose 113 H 143 H 145 H Lactic Acid Calcium Ionized Calcium Phosphorus Magnesium Total Bilirubin AST ALT Alkaline Phosphatase Ammonia Total Creatine Kinase CK-MB (CK-2) CK-MB (CK-2) Rel Index Total Protein Albumin Urine WBC (Auto) Vancomycin Trough Salicylates Acetaminophen Plasma/Serum Alcohol Crossmatch 12/01/19 12/01/19 12/01/19 05:33 08:23 08:23 WBC 22.7 H RBC 2.88 L Hgb 7.9 L Hct 25.2 L MCH 27 L RDW 21.0 H Plt Count 732 H Lymph % (Auto) [place] % (Auto) [place] # Baso # Seg Neutrophils % Seg Neuts % (Manual) 91.0 H Lymphocytes % (Manual) 3.0 L Monocytes % (Manual) Seg Neutrophils # Seg Neutrophils # Man 20.7 H Lymphocytes # (Manual) 0.7 L Monocytes # (Manual) 1.1 H Eosinophils # (Manual) Basophils # (Manual) PT INR APTT ABG pH ABG pO2 68.6 L ABG HCO3 34.1 H ABG O2 Saturation ABG Base Excess 9.0 H ABG Hemoglobin 6.5 L Oxyhemoglobin 94.7 L Sodium Potassium Chloride Carbon Dioxide BUN Creatinine 0.5 L Glucose 125 H POC Glucose Lactic Acid Calcium Ionized Calcium Phosphorus Magnesium Total Bilirubin AST ALT Alkaline Phosphatase Ammonia Total Creatine Kinase CK-MB (CK-2) CK-MB (CK-2) Rel Index Total Protein Albumin Urine WBC (Auto) Vancomycin Trough Salicylates Acetaminophen Plasma/Serum Alcohol Crossmatch 12/01/19 12/01/19 12/01/19 13:21 17:54 20:59 WBC RBC Hgb Hct MCH RDW Plt Count Lymph % (Auto) [place] % (Auto) [place] # Baso # Seg Neutrophils % Seg Neuts % (Manual) Lymphocytes % (Manual) Monocytes % (Manual) Seg Neutrophils # Seg Neutrophils # Man Lymphocytes # (Manual) Monocytes # (Manual) Eosinophils # (Manual) Basophils # (Manual) PT INR APTT ABG pH ABG pO2 78.3 L ABG HCO3 33.8 H ABG O2 Saturation 94.9 L ABG Base Excess 7.9 H ABG Hemoglobin 11.5 L Oxyhemoglobin 92.3 L Sodium Potassium Chloride Carbon Dioxide BUN Creatinine Glucose POC Glucose 111 H 115 H Lactic Acid Calcium Ionized Calcium Phosphorus Magnesium Total Bilirubin AST ALT Alkaline Phosphatase Ammonia Total Creatine Kinase CK-MB (CK-2) CK-MB (CK-2) Rel Index Total Protein Albumin Urine WBC (Auto) Vancomycin Trough Salicylates Acetaminophen Plasma/Serum Alcohol Crossmatch 12/02/19 12/03/19 12/04/19 12:55 20:00 04:26 WBC 15.2 H RBC 2.69 L Hgb 7.4 L Hct 23.6 L MCH 27 L RDW 19.9 H Plt Count 838 H Lymph % (Auto) [place] % (Auto) [place] # Baso # Seg Neutrophils % Seg Neuts % (Manual) Lymphocytes % (Manual) Monocytes % (Manual) Seg Neutrophils # Seg Neutrophils # Man Lymphocytes # (Manual) Monocytes # (Manual) Eosinophils # (Manual) Basophils # (Manual) PT INR APTT ABG pH ABG pO2 68.3 L ABG HCO3 33.5 H ABG O2 Saturation 93.5 L ABG Base Excess 8.4 H ABG Hemoglobin 7.3 L Oxyhemoglobin 90.9 L Sodium Potassium Chloride Carbon Dioxide BUN Creatinine Glucose POC Glucose 107 H Lactic Acid Calcium Ionized Calcium Phosphorus Magnesium Total Bilirubin AST ALT Alkaline Phosphatase Ammonia Total Creatine Kinase CK-MB (CK-2) CK-MB (CK-2) Rel Index Total Protein Albumin Urine WBC (Auto) Vancomycin Trough Salicylates Acetaminophen Plasma/Serum Alcohol Crossmatch 12/04/19 12/04/19 12/04/19 04:26 07:45 12:02 WBC 15.9 H RBC 2.88 L Hgb 7.9 L Hct 25.1 L MCH RDW 20.4 H Plt Count 839 H Lymph % (Auto) 11.3 L [place] % (Auto) 15.2 H [place] # 2.4 H Baso # Seg Neutrophils % 72.4 H Seg Neuts % (Manual) Lymphocytes % (Manual) Monocytes % (Manual) Seg Neutrophils # 11.5 H Seg Neutrophils # Man Lymphocytes # (Manual) Monocytes # (Manual) Eosinophils # (Manual) Basophils # (Manual) PT INR APTT ABG pH ABG pO2 ABG HCO3 ABG O2 Saturation ABG Base Excess ABG Hemoglobin Oxyhemoglobin Sodium Potassium Chloride 96.5 L Carbon Dioxide BUN 21 H Creatinine 0.6 L Glucose 107 H POC Glucose 138 H Lactic Acid Calcium Ionized Calcium Phosphorus Magnesium Total Bilirubin AST ALT Alkaline Phosphatase Ammonia Total Creatine Kinase CK-MB (CK-2) CK-MB (CK-2) Rel Index Total Protein Albumin Urine WBC (Auto) Vancomycin Trough Salicylates Acetaminophen Plasma/Serum Alcohol Crossmatch 12/04/19 12/05/19 12/05/19 18:16 11:55 18:36 WBC RBC Hgb Hct MCH RDW Plt Count Lymph % (Auto) [place] % (Auto) [place] # Baso # Seg Neutrophils % Seg Neuts % (Manual) Lymphocytes % (Manual) Monocytes % (Manual) Seg Neutrophils # Seg Neutrophils # Man Lymphocytes # (Manual) Monocytes # (Manual) Eosinophils # (Manual) Basophils # (Manual) PT INR APTT ABG pH ABG pO2 ABG HCO3 ABG O2 Saturation ABG Base Excess ABG Hemoglobin Oxyhemoglobin Sodium Potassium Chloride Carbon Dioxide BUN Creatinine Glucose POC Glucose 135 H 125 H 135 H Lactic Acid Calcium Ionized Calcium Phosphorus Magnesium Total Bilirubin AST ALT Alkaline Phosphatase Ammonia Total Creatine Kinase CK-MB (CK-2) CK-MB (CK-2) Rel Index Total Protein Albumin Urine WBC (Auto) Vancomycin Trough Salicylates Acetaminophen Plasma/Serum Alcohol Crossmatch 12/05/19 12/06/19 12/06/19 23:30 04:14 05:43 WBC RBC Hgb Hct MCH RDW Plt Count Lymph % (Auto) [place] % (Auto) [place] # Baso # Seg Neutrophils % Seg Neuts % (Manual) Lymphocytes % (Manual) Monocytes % (Manual) Seg Neutrophils # Seg Neutrophils # Man Lymphocytes # (Manual) Monocytes # (Manual) Eosinophils # (Manual) Basophils # (Manual) PT INR APTT ABG pH ABG pO2 ABG HCO3 ABG O2 Saturation ABG Base Excess ABG Hemoglobin Oxyhemoglobin Sodium Potassium 5.6 H Chloride 95.0 L Carbon Dioxide BUN 48 H Creatinine 1.3 H D Glucose POC Glucose 126 H 121 H Lactic Acid Calcium Ionized Calcium Phosphorus Magnesium Total Bilirubin AST 89 H ALT 98 H Alkaline Phosphatase 476 H Ammonia Total Creatine Kinase CK-MB (CK-2) CK-MB (CK-2) Rel Index Total Protein Albumin 2.8 L Urine WBC (Auto) Vancomycin Trough Salicylates Acetaminophen Plasma/Serum Alcohol Crossmatch 12/06/19 12/06/19 12/07/19 10:39 14:34 00:19 WBC 17.3 H RBC 2.60 L Hgb 7.1 L Hct 22.7 L MCH 27 L RDW 20.1 H Plt Count 832 H Lymph % (Auto) [place] % (Auto) [place] # Baso # Seg Neutrophils % Seg Neuts % (Manual) Lymphocytes % (Manual) Monocytes % (Manual) Seg Neutrophils # Seg Neutrophils # Man Lymphocytes # (Manual) Monocytes # (Manual) Eosinophils # (Manual) Basophils # (Manual) PT INR APTT ABG pH ABG pO2 ABG HCO3 ABG O2 Saturation ABG Base Excess ABG Hemoglobin Oxyhemoglobin Sodium Potassium Chloride Carbon Dioxide BUN Creatinine Glucose POC Glucose 128 H 136 H Lactic Acid Calcium Ionized Calcium Phosphorus Magnesium Total Bilirubin AST ALT Alkaline Phosphatase Ammonia Total Creatine Kinase CK-MB (CK-2) CK-MB (CK-2) Rel Index Total Protein Albumin Urine WBC (Auto) Vancomycin Trough Salicylates Acetaminophen Plasma/Serum Alcohol Crossmatch 12/07/19 12/07/19 12/07/19 03:44 03:44 05:53 WBC 16.2 H RBC 2.56 L Hgb 7.1 L Hct 22.3 L MCH RDW 19.4 H Plt Count 782 H Lymph % (Auto) [place] % (Auto) [place] # Baso # Seg Neutrophils % Seg Neuts % (Manual) Lymphocytes % (Manual) Monocytes % (Manual) Seg Neutrophils # Seg Neutrophils # Man Lymphocytes # (Manual) Monocytes # (Manual) Eosinophils # (Manual) Basophils # (Manual) PT INR APTT ABG pH ABG pO2 ABG HCO3 ABG O2 Saturation ABG Base Excess ABG Hemoglobin Oxyhemoglobin Sodium Potassium Chloride 95.6 L Carbon Dioxide BUN 56 H Creatinine 1.4 H Glucose 120 H POC Glucose 128 H Lactic Acid Calcium 10.3 H Ionized Calcium Phosphorus Magnesium Total Bilirubin AST ALT Alkaline Phosphatase Ammonia Total Creatine Kinase CK-MB (CK-2) CK-MB (CK-2) Rel Index Total Protein Albumin Urine WBC (Auto) Vancomycin Trough Salicylates Acetaminophen Plasma/Serum Alcohol Crossmatch 12/07/19 12/07/19 12/08/19 12:54 23:47 00:20 WBC RBC Hgb Hct MCH RDW Plt Count Lymph % (Auto) [place] % (Auto) [place] # Baso # Seg Neutrophils % Seg Neuts % (Manual) Lymphocytes % (Manual) Monocytes % (Manual) Seg Neutrophils # Seg Neutrophils # Man Lymphocytes # (Manual) Monocytes # (Manual) Eosinophils # (Manual) Basophils # (Manual) PT INR APTT ABG pH ABG pO2 ABG HCO3 ABG O2 Saturation ABG Base Excess ABG Hemoglobin Oxyhemoglobin Sodium Potassium Chloride Carbon Dioxide BUN Creatinine Glucose POC Glucose 128 H 130 H 124 H Lactic Acid Calcium Ionized Calcium Phosphorus Magnesium Total Bilirubin AST ALT Alkaline Phosphatase Ammonia Total Creatine Kinase CK-MB (CK-2) CK-MB (CK-2) Rel Index Total Protein Albumin Urine WBC (Auto) Vancomycin Trough Salicylates Acetaminophen Plasma/Serum Alcohol Crossmatch 12/08/19 12/08/19 12/08/19 06:38 12:04 18:26 WBC RBC Hgb Hct MCH RDW Plt Count Lymph % (Auto) [place] % (Auto) [place] # Baso # Seg Neutrophils % Seg Neuts % (Manual) Lymphocytes % (Manual) Monocytes % (Manual) Seg Neutrophils # Seg Neutrophils # Man Lymphocytes # (Manual) Monocytes # (Manual) Eosinophils # (Manual) Basophils # (Manual) PT INR APTT ABG pH ABG pO2 ABG HCO3 ABG O2 Saturation ABG Base Excess ABG Hemoglobin Oxyhemoglobin Sodium Potassium Chloride Carbon Dioxide BUN Creatinine Glucose POC Glucose 137 H 129 H 150 H Lactic Acid Calcium Ionized Calcium Phosphorus Magnesium Total Bilirubin AST ALT Alkaline Phosphatase Ammonia Total Creatine Kinase CK-MB (CK-2) CK-MB (CK-2) Rel Index Total Protein Albumin Urine WBC (Auto) Vancomycin Trough Salicylates Acetaminophen Plasma/Serum Alcohol Crossmatch 12/09/19 12/09/19 12/09/19 00:56 05:34 06:13 WBC RBC Hgb Hct MCH RDW Plt Count Lymph % (Auto) [place] % (Auto) [place] # Baso # Seg Neutrophils % Seg Neuts % (Manual) Lymphocytes % (Manual) Monocytes % (Manual) Seg Neutrophils # Seg Neutrophils # Man Lymphocytes # (Manual) Monocytes # (Manual) Eosinophils # (Manual) Basophils # (Manual) PT INR APTT ABG pH ABG pO2 ABG HCO3 ABG O2 Saturation ABG Base Excess ABG Hemoglobin Oxyhemoglobin Sodium 146 H Potassium Chloride Carbon Dioxide BUN 66 H Creatinine 1.9 H Glucose 116 H POC Glucose 130 H 130 H Lactic Acid Calcium Ionized Calcium Phosphorus Magnesium Total Bilirubin AST ALT Alkaline Phosphatase Ammonia Total Creatine Kinase CK-MB (CK-2) CK-MB (CK-2) Rel Index Total Protein Albumin Urine WBC (Auto) Vancomycin Trough Salicylates Acetaminophen Plasma/Serum Alcohol Crossmatch 12/09/19 12/09/19 12/10/19 11:52 17:50 00:14 WBC RBC Hgb Hct MCH RDW Plt Count Lymph % (Auto) [place] % (Auto) [place] # Baso # Seg Neutrophils % Seg Neuts % (Manual) Lymphocytes % (Manual) Monocytes % (Manual) Seg Neutrophils # Seg Neutrophils # Man Lymphocytes # (Manual) Monocytes # (Manual) Eosinophils # (Manual) Basophils # (Manual) PT INR APTT ABG pH ABG pO2 ABG HCO3 ABG O2 Saturation ABG Base Excess ABG Hemoglobin Oxyhemoglobin Sodium Potassium Chloride Carbon Dioxide BUN Creatinine Glucose POC Glucose 135 H 120 H 116 H Lactic Acid Calcium Ionized Calcium Phosphorus Magnesium Total Bilirubin AST ALT Alkaline Phosphatase Ammonia Total Creatine Kinase CK-MB (CK-2) CK-MB (CK-2) Rel Index Total Protein Albumin Urine WBC (Auto) Vancomycin Trough Salicylates Acetaminophen Plasma/Serum Alcohol Crossmatch 12/10/19 12/10/19 12/10/19 05:38 11:38 17:34 WBC RBC Hgb Hct MCH RDW Plt Count Lymph % (Auto) [place] % (Auto) [place] # Baso # Seg Neutrophils % Seg Neuts % (Manual) Lymphocytes % (Manual) Monocytes % (Manual) Seg Neutrophils # Seg Neutrophils # Man Lymphocytes # (Manual) Monocytes # (Manual) Eosinophils # (Manual) Basophils # (Manual) PT INR APTT ABG pH ABG pO2 ABG HCO3 ABG O2 Saturation ABG Base Excess ABG Hemoglobin Oxyhemoglobin Sodium Potassium Chloride Carbon Dioxide BUN Creatinine Glucose POC Glucose 115 H 112 H 130 H Lactic Acid Calcium Ionized Calcium Phosphorus Magnesium Total Bilirubin AST ALT Alkaline Phosphatase Ammonia Total Creatine Kinase CK-MB (CK-2) CK-MB (CK-2) Rel Index Total Protein Albumin Urine WBC (Auto) Vancomycin Trough Salicylates Acetaminophen Plasma/Serum Alcohol Crossmatch 12/11/19 12/11/19 12/11/19 00:20 05:31 12:22 WBC RBC Hgb Hct MCH RDW Plt Count Lymph % (Auto) [place] % (Auto) [place] # Baso # Seg Neutrophils % Seg Neuts % (Manual) Lymphocytes % (Manual) Monocytes % (Manual) Seg Neutrophils # Seg Neutrophils # Man Lymphocytes # (Manual) Monocytes # (Manual) Eosinophils # (Manual) Basophils # (Manual) PT INR APTT ABG pH ABG pO2 ABG HCO3 ABG O2 Saturation ABG Base Excess ABG Hemoglobin Oxyhemoglobin Sodium Potassium Chloride Carbon Dioxide BUN Creatinine Glucose POC Glucose 124 H 132 H 128 H Lactic Acid Calcium Ionized Calcium Phosphorus Magnesium Total Bilirubin AST ALT Alkaline Phosphatase Ammonia Total Creatine Kinase CK-MB (CK-2) CK-MB (CK-2) Rel Index Total Protein Albumin Urine WBC (Auto) Vancomycin Trough Salicylates Acetaminophen Plasma/Serum Alcohol Crossmatch 12/11/19 12/11/19 12/12/19 18:04 23:42 03:51 WBC RBC Hgb Hct MCH RDW Plt Count Lymph % (Auto) [place] % (Auto) [place] # Baso # Seg Neutrophils % Seg Neuts % (Manual) Lymphocytes % (Manual) Monocytes % (Manual) Seg Neutrophils # Seg Neutrophils # Man Lymphocytes # (Manual) Monocytes # (Manual) Eosinophils # (Manual) Basophils # (Manual) PT INR APTT ABG pH ABG pO2 ABG HCO3 ABG O2 Saturation ABG Base Excess ABG Hemoglobin Oxyhemoglobin Sodium 149 H Potassium Chloride Carbon Dioxide 20 L D BUN 77 H Creatinine 2.8 H Glucose POC Glucose 133 H 154 H Lactic Acid Calcium Ionized Calcium Phosphorus Magnesium Total Bilirubin AST ALT Alkaline Phosphatase Ammonia Total Creatine Kinase CK-MB (CK-2) CK-MB (CK-2) Rel Index Total Protein Albumin Urine WBC (Auto) Vancomycin Trough Salicylates Acetaminophen Plasma/Serum Alcohol Crossmatch 12/12/19 12/12/19 12/12/19 05:18 05:26 10:30 WBC 18.0 H RBC 2.51 L Hgb 6.8 L Hct 22.0 L MCH 27 L RDW 19.9 H Plt Count 582 H Lymph % (Auto) [place] % (Auto) [place] # Baso # Seg Neutrophils % Seg Neuts % (Manual) Lymphocytes % (Manual) Monocytes % (Manual) Seg Neutrophils # Seg Neutrophils # Man Lymphocytes # (Manual) Monocytes # (Manual) Eosinophils # (Manual) Basophils # (Manual) PT INR APTT ABG pH ABG pO2 ABG HCO3 ABG O2 Saturation ABG Base Excess ABG Hemoglobin Oxyhemoglobin Sodium Potassium Chloride Carbon Dioxide BUN Creatinine Glucose POC Glucose 135 H Lactic Acid Calcium Ionized Calcium Phosphorus Magnesium Total Bilirubin AST ALT Alkaline Phosphatase Ammonia Total Creatine Kinase CK-MB (CK-2) CK-MB (CK-2) Rel Index Total Protein Albumin Urine WBC (Auto) Vancomycin Trough Salicylates Acetaminophen Plasma/Serum Alcohol Crossmatch See Detail 12/12/19 12/12/19 12/12/19 11:44 18:10 23:21 WBC RBC Hgb Hct MCH RDW Plt Count Lymph % (Auto) [place] % (Auto) [place] # Baso # Seg Neutrophils % Seg Neuts % (Manual) Lymphocytes % (Manual) Monocytes % (Manual) Seg Neutrophils # Seg Neutrophils # Man Lymphocytes # (Manual) Monocytes # (Manual) Eosinophils # (Manual) Basophils # (Manual) PT INR APTT ABG pH ABG pO2 ABG HCO3 ABG O2 Saturation ABG Base Excess ABG Hemoglobin Oxyhemoglobin Sodium Potassium Chloride Carbon Dioxide BUN Creatinine Glucose POC Glucose 108 H 107 H 126 H Lactic Acid Calcium Ionized Calcium Phosphorus Magnesium Total Bilirubin AST ALT Alkaline Phosphatase Ammonia Total Creatine Kinase CK-MB (CK-2) CK-MB (CK-2) Rel Index Total Protein Albumin Urine WBC (Auto) Vancomycin Trough Salicylates Acetaminophen Plasma/Serum Alcohol Crossmatch 12/13/19 12/13/19 12/13/19 05:41 07:48 07:48 WBC 38.3 H RBC 2.37 L Hgb 6.3 L Hct 20.9 L MCH 27 L RDW 20.2 H Plt Count 546 H Lymph % (Auto) [place] % (Auto) [place] # Baso # Seg Neutrophils % Seg Neuts % (Manual) 93.0 H Lymphocytes % (Manual) 1.0 L Monocytes % (Manual) Seg Neutrophils # Seg Neutrophils # Man 35.6 H Lymphocytes # (Manual) 0.4 L Monocytes # (Manual) Eosinophils # (Manual) Basophils # (Manual) 0.4 H PT INR APTT ABG pH ABG pO2 ABG HCO3 ABG O2 Saturation ABG Base Excess ABG Hemoglobin Oxyhemoglobin Sodium 152 H Potassium 3.1 L D Chloride 111.9 H Carbon Dioxide 21 L BUN 53 H Creatinine 1.9 H Glucose 141 H POC Glucose 128 H Lactic Acid Calcium Ionized Calcium Phosphorus Magnesium Total Bilirubin AST ALT Alkaline Phosphatase 316 H Ammonia Total Creatine Kinase CK-MB (CK-2) CK-MB (CK-2) Rel Index Total Protein Albumin 2.4 L Urine WBC (Auto) Vancomycin Trough Salicylates Acetaminophen Plasma/Serum Alcohol Crossmatch 12/13/19 12/13/19 12/14/19 18:17 23:19 05:36 WBC RBC Hgb Hct MCH RDW Plt Count Lymph % (Auto) [place] % (Auto) [place] # Baso # Seg Neutrophils % Seg Neuts % (Manual) Lymphocytes % (Manual) Monocytes % (Manual) Seg Neutrophils # Seg Neutrophils # Man Lymphocytes # (Manual) Monocytes # (Manual) Eosinophils # (Manual) Basophils # (Manual) PT INR APTT ABG pH ABG pO2 ABG HCO3 ABG O2 Saturation ABG Base Excess ABG Hemoglobin Oxyhemoglobin Sodium Potassium Chloride Carbon Dioxide BUN Creatinine Glucose POC Glucose 141 H 158 H 182 H Lactic Acid Calcium Ionized Calcium Phosphorus Magnesium Total Bilirubin AST ALT Alkaline Phosphatase Ammonia Total Creatine Kinase CK-MB (CK-2) CK-MB (CK-2) Rel Index Total Protein Albumin Urine WBC (Auto) Vancomycin Trough Salicylates Acetaminophen Plasma/Serum Alcohol Crossmatch 12/14/19 12/14/19 12/14/19 08:48 08:48 10:31 WBC 33.3 H RBC 2.70 L Hgb 7.9 L 8.0 L Hct 25.3 L 24.0 L MCH RDW 19.2 H Plt Count 476 H Lymph % (Auto) [place] % (Auto) [place] # Baso # Seg Neutrophils % Seg Neuts % (Manual) Lymphocytes % (Manual) Monocytes % (Manual) Seg Neutrophils # Seg Neutrophils # Man Lymphocytes # (Manual) Monocytes # (Manual) Eosinophils # (Manual) Basophils # (Manual) PT INR APTT ABG pH ABG pO2 ABG HCO3 ABG O2 Saturation ABG Base Excess ABG Hemoglobin Oxyhemoglobin Sodium 153 H Potassium 2.5 L* Chloride 114.9 H Carbon Dioxide 20 L BUN 38 H Creatinine 1.4 H Glucose 177 H POC Glucose Lactic Acid Calcium Ionized Calcium Phosphorus Magnesium Total Bilirubin AST ALT Alkaline Phosphatase Ammonia Total Creatine Kinase CK-MB (CK-2) CK-MB (CK-2) Rel Index Total Protein Albumin Urine WBC (Auto) Vancomycin Trough Salicylates Acetaminophen Plasma/Serum Alcohol Crossmatch 12/14/19 12/14/19 12/14/19 12:57 16:15 17:50 WBC RBC Hgb Hct MCH RDW Plt Count Lymph % (Auto) [place] % (Auto) [place] # Baso # Seg Neutrophils % Seg Neuts % (Manual) Lymphocytes % (Manual) Monocytes % (Manual) Seg Neutrophils # Seg Neutrophils # Man Lymphocytes # (Manual) Monocytes # (Manual) Eosinophils # (Manual) Basophils # (Manual) PT INR APTT ABG pH ABG pO2 73.6 L ABG HCO3 ABG O2 Saturation ABG Base Excess ABG Hemoglobin 7.6 L Oxyhemoglobin 94.0 L Sodium Potassium Chloride Carbon Dioxide BUN Creatinine Glucose POC Glucose 174 H 150 H Lactic Acid Calcium Ionized Calcium Phosphorus Magnesium Total Bilirubin AST ALT Alkaline Phosphatase Ammonia Total Creatine Kinase CK-MB (CK-2) CK-MB (CK-2) Rel Index Total Protein Albumin Urine WBC (Auto) Vancomycin Trough Salicylates Acetaminophen Plasma/Serum Alcohol Crossmatch 12/15/19 12/15/19 12/15/19 00:28 05:27 07:23 WBC 30.0 H RBC 3.11 L Hgb 8.6 L Hct 27.7 L MCH RDW 20.0 H Plt Count 473 H Lymph % (Auto) [place] % (Auto) [place] # Baso # Seg Neutrophils % Seg Neuts % (Manual) Lymphocytes % (Manual) Monocytes % (Manual) Seg Neutrophils # Seg Neutrophils # Man Lymphocytes # (Manual) Monocytes # (Manual) Eosinophils # (Manual) Basophils # (Manual) PT INR APTT ABG pH ABG pO2 ABG HCO3 ABG O2 Saturation ABG Base Excess ABG Hemoglobin Oxyhemoglobin Sodium Potassium Chloride Carbon Dioxide BUN Creatinine Glucose POC Glucose 167 H 148 H Lactic Acid Calcium Ionized Calcium Phosphorus Magnesium Total Bilirubin AST ALT Alkaline Phosphatase Ammonia Total Creatine Kinase CK-MB (CK-2) CK-MB (CK-2) Rel Index Total Protein Albumin Urine WBC (Auto) Vancomycin Trough Salicylates Acetaminophen Plasma/Serum Alcohol Crossmatch 12/15/19 12/15/19 12/15/19 07:23 12:21 17:41 WBC RBC Hgb Hct MCH RDW Plt Count Lymph % (Auto) [place] % (Auto) [place] # Baso # Seg Neutrophils % Seg Neuts % (Manual) Lymphocytes % (Manual) Monocytes % (Manual) Seg Neutrophils # Seg Neutrophils # Man Lymphocytes # (Manual) Monocytes # (Manual) Eosinophils # (Manual) Basophils # (Manual) PT INR APTT ABG pH ABG pO2 ABG HCO3 ABG O2 Saturation ABG Base Excess ABG Hemoglobin Oxyhemoglobin Sodium 147 H Potassium 3.5 L D Chloride 111.2 H Carbon Dioxide 19 L BUN 29 H Creatinine Glucose 126 H POC Glucose 154 H 144 H Lactic Acid Calcium Ionized Calcium Phosphorus Magnesium Total Bilirubin AST ALT Alkaline Phosphatase Ammonia Total Creatine Kinase CK-MB (CK-2) CK-MB (CK-2) Rel Index Total Protein Albumin Urine WBC (Auto) Vancomycin Trough Salicylates Acetaminophen Plasma/Serum Alcohol Crossmatch 12/16/19 12/16/19 12/16/19 00:22 05:30 05:44 WBC 30.8 H RBC 2.58 L Hgb 7.1 L Hct 22.7 L MCH RDW 19.6 H Plt Count 451 H Lymph % (Auto) [place] % (Auto) [place] # Baso # Seg Neutrophils % Seg Neuts % (Manual) Lymphocytes % (Manual) Monocytes % (Manual) Seg Neutrophils # Seg Neutrophils # Man Lymphocytes # (Manual) Monocytes # (Manual) Eosinophils # (Manual) Basophils # (Manual) PT INR APTT ABG pH ABG pO2 ABG HCO3 ABG O2 Saturation ABG Base Excess ABG Hemoglobin Oxyhemoglobin Sodium Potassium Chloride Carbon Dioxide BUN Creatinine Glucose POC Glucose 139 H 126 H Lactic Acid Calcium Ionized Calcium Phosphorus Magnesium Total Bilirubin AST ALT Alkaline Phosphatase Ammonia Total Creatine Kinase CK-MB (CK-2) CK-MB (CK-2) Rel Index Total Protein Albumin Urine WBC (Auto) Vancomycin Trough Salicylates Acetaminophen Plasma/Serum Alcohol Crossmatch 12/16/19 12/16/19 12/16/19 05:44 11:48 17:37 WBC RBC Hgb Hct MCH RDW Plt Count Lymph % (Auto) [place] % (Auto) [place] # Baso # Seg Neutrophils % Seg Neuts % (Manual) Lymphocytes % (Manual) Monocytes % (Manual) Seg Neutrophils # Seg Neutrophils # Man Lymphocytes # (Manual) Monocytes # (Manual) Eosinophils # (Manual) Basophils # (Manual) PT INR APTT ABG pH ABG pO2 ABG HCO3 ABG O2 Saturation ABG Base Excess ABG Hemoglobin Oxyhemoglobin Sodium Potassium 3.4 L Chloride 109.2 H Carbon Dioxide 19 L BUN 27 H Creatinine Glucose 124 H POC Glucose 125 H 148 H Lactic Acid Calcium Ionized Calcium Phosphorus Magnesium Total Bilirubin AST ALT Alkaline Phosphatase Ammonia Total Creatine Kinase CK-MB (CK-2) CK-MB (CK-2) Rel Index Total Protein Albumin Urine WBC (Auto) Vancomycin Trough Salicylates Acetaminophen Plasma/Serum Alcohol Crossmatch 12/16/19 12/17/19 12/17/19 23:43 05:28 12:47 WBC RBC Hgb Hct MCH RDW Plt Count Lymph % (Auto) [place] % (Auto) [place] # Baso # Seg Neutrophils % Seg Neuts % (Manual) Lymphocytes % (Manual) Monocytes % (Manual) Seg Neutrophils # Seg Neutrophils # Man Lymphocytes # (Manual) Monocytes # (Manual) Eosinophils # (Manual) Basophils # (Manual) PT INR APTT ABG pH ABG pO2 ABG HCO3 ABG O2 Saturation ABG Base Excess ABG Hemoglobin Oxyhemoglobin Sodium Potassium Chloride Carbon Dioxide BUN Creatinine Glucose POC Glucose 142 H 140 H 125 H Lactic Acid Calcium Ionized Calcium Phosphorus Magnesium Total Bilirubin AST ALT Alkaline Phosphatase Ammonia Total Creatine Kinase CK-MB (CK-2) CK-MB (CK-2) Rel Index Total Protein Albumin Urine WBC (Auto) Vancomycin Trough Salicylates Acetaminophen Plasma/Serum Alcohol Crossmatch 12/17/19 12/17/19 12/17/19 17:05 18:00 Unknown WBC RBC Hgb Hct MCH RDW Plt Count Lymph % (Auto) [place] % (Auto) [place] # Baso # Seg Neutrophils % Seg Neuts % (Manual) Lymphocytes % (Manual) Monocytes % (Manual) Seg Neutrophils # Seg Neutrophils # Man Lymphocytes # (Manual) Monocytes # (Manual) Eosinophils # (Manual) Basophils # (Manual) PT INR APTT ABG pH ABG pO2 68.1 L ABG HCO3 ABG O2 Saturation 93.7 L ABG Base Excess ABG Hemoglobin 5.0 L Oxyhemoglobin 91.7 L Sodium Potassium Chloride Carbon Dioxide BUN Creatinine Glucose POC Glucose 140 H Lactic Acid Calcium Ionized Calcium Phosphorus Magnesium Total Bilirubin AST ALT Alkaline Phosphatase Ammonia Total Creatine Kinase CK-MB (CK-2) CK-MB (CK-2) Rel Index Total Protein Albumin Urine WBC (Auto) Vancomycin Trough Salicylates Acetaminophen Plasma/Serum Alcohol Crossmatch 12/18/19 12/18/19 12/18/19 00:16 04:53 04:53 WBC 28.6 H RBC 2.27 L Hgb 6.3 L Hct 19.5 L* MCH RDW 20.0 H Plt Count 497 H Lymph % (Auto) [place] % (Auto) [place] # Baso # Seg Neutrophils % Seg Neuts % (Manual) Lymphocytes % (Manual) Monocytes % (Manual) Seg Neutrophils # Seg Neutrophils # Man Lymphocytes # (Manual) Monocytes # (Manual) Eosinophils # (Manual) Basophils # (Manual) PT INR APTT ABG pH ABG pO2 ABG HCO3 ABG O2 Saturation ABG Base Excess ABG Hemoglobin Oxyhemoglobin Sodium Potassium Chloride 107.9 H Carbon Dioxide 20 L BUN 27 H Creatinine 0.6 L Glucose 116 H POC Glucose 123 H Lactic Acid Calcium Ionized Calcium Phosphorus Magnesium Total Bilirubin AST ALT Alkaline Phosphatase Ammonia Total Creatine Kinase CK-MB (CK-2) CK-MB (CK-2) Rel Index Total Protein Albumin Urine WBC (Auto) Vancomycin Trough Salicylates Acetaminophen Plasma/Serum Alcohol Crossmatch 12/18/19 12/18/19 12/18/19 06:38 11:22 12:08 WBC RBC Hgb Hct MCH RDW Plt Count Lymph % (Auto) [place] % (Auto) [place] # Baso # Seg Neutrophils % Seg Neuts % (Manual) Lymphocytes % (Manual) Monocytes % (Manual) Seg Neutrophils # Seg Neutrophils # Man Lymphocytes # (Manual) Monocytes # (Manual) Eosinophils # (Manual) Basophils # (Manual) PT INR APTT ABG pH ABG pO2 ABG HCO3 ABG O2 Saturation ABG Base Excess ABG Hemoglobin Oxyhemoglobin Sodium Potassium Chloride Carbon Dioxide BUN Creatinine Glucose POC Glucose 120 H 127 H Lactic Acid Calcium Ionized Calcium Phosphorus Magnesium Total Bilirubin AST ALT Alkaline Phosphatase Ammonia Total Creatine Kinase CK-MB (CK-2) CK-MB (CK-2) Rel Index Total Protein Albumin Urine WBC (Auto) Vancomycin Trough Salicylates Acetaminophen Plasma/Serum Alcohol Crossmatch See Detail 12/18/19 12/18/19 12/18/19 14:05 17:49 23:53 WBC RBC Hgb Hct MCH RDW Plt Count Lymph % (Auto) [place] % (Auto) [place] # Baso # Seg Neutrophils % Seg Neuts % (Manual) Lymphocytes % (Manual) Monocytes % (Manual) Seg Neutrophils # Seg Neutrophils # Man Lymphocytes # (Manual) Monocytes # (Manual) Eosinophils # (Manual) Basophils # (Manual) PT INR APTT ABG pH 7.267 L ABG pO2 69.8 L ABG HCO3 ABG O2 Saturation 88.4 L ABG Base Excess ABG Hemoglobin 7.1 L Oxyhemoglobin 86.4 L Sodium Potassium Chloride Carbon Dioxide BUN Creatinine Glucose POC Glucose 157 H 128 H Lactic Acid Calcium Ionized Calcium Phosphorus Magnesium Total Bilirubin AST ALT Alkaline Phosphatase Ammonia Total Creatine Kinase CK-MB (CK-2) CK-MB (CK-2) Rel Index Total Protein Albumin Urine WBC (Auto) Vancomycin Trough Salicylates Acetaminophen Plasma/Serum Alcohol Crossmatch 12/19/19 12/19/19 12/19/19 03:37 03:37 05:25 WBC 31.3 H RBC 2.60 L Hgb 7.6 L Hct 23.0 L MCH RDW 19.4 H Plt Count 530 H Lymph % (Auto) [place] % (Auto) [place] # Baso # Seg Neutrophils % Seg Neuts % (Manual) Lymphocytes % (Manual) Monocytes % (Manual) Seg Neutrophils # Seg Neutrophils # Man Lymphocytes # (Manual) Monocytes # (Manual) Eosinophils # (Manual) Basophils # (Manual) PT INR APTT ABG pH ABG pO2 ABG HCO3 ABG O2 Saturation ABG Base Excess ABG Hemoglobin Oxyhemoglobin Sodium Potassium Chloride Carbon Dioxide 18 L BUN 36 H Creatinine Glucose 111 H POC Glucose 123 H Lactic Acid Calcium Ionized Calcium Phosphorus Magnesium Total Bilirubin AST ALT Alkaline Phosphatase Ammonia Total Creatine Kinase CK-MB (CK-2) CK-MB (CK-2) Rel Index Total Protein Albumin Urine WBC (Auto) Vancomycin Trough Salicylates Acetaminophen Plasma/Serum Alcohol Crossmatch 12/19/19 12/19/19 12/20/19 12:59 18:33 00:00 WBC RBC Hgb Hct MCH RDW Plt Count Lymph % (Auto) [place] % (Auto) [place] # Baso # Seg Neutrophils % Seg Neuts % (Manual) Lymphocytes % (Manual) Monocytes % (Manual) Seg Neutrophils # Seg Neutrophils # Man Lymphocytes # (Manual) Monocytes # (Manual) Eosinophils # (Manual) Basophils # (Manual) PT INR APTT ABG pH ABG pO2 ABG HCO3 ABG O2 Saturation ABG Base Excess ABG Hemoglobin Oxyhemoglobin Sodium Potassium Chloride Carbon Dioxide BUN Creatinine Glucose POC Glucose 130 H 118 H 135 H Lactic Acid Calcium Ionized Calcium Phosphorus Magnesium Total Bilirubin AST ALT Alkaline Phosphatase Ammonia Total Creatine Kinase CK-MB (CK-2) CK-MB (CK-2) Rel Index Total Protein Albumin Urine WBC (Auto) Vancomycin Trough Salicylates Acetaminophen Plasma/Serum Alcohol Crossmatch 12/20/19 12/20/19 12/20/19 05:46 12:31 18:07 WBC RBC Hgb Hct MCH RDW Plt Count Lymph % (Auto) [place] % (Auto) [place] # Baso # Seg Neutrophils % Seg Neuts % (Manual) Lymphocytes % (Manual) Monocytes % (Manual) Seg Neutrophils # Seg Neutrophils # Man Lymphocytes # (Manual) Monocytes # (Manual) Eosinophils # (Manual) Basophils # (Manual) PT INR APTT ABG pH ABG pO2 ABG HCO3 ABG O2 Saturation ABG Base Excess ABG Hemoglobin Oxyhemoglobin Sodium Potassium Chloride Carbon Dioxide BUN Creatinine Glucose POC Glucose 131 H 128 H 134 H Lactic Acid Calcium Ionized Calcium Phosphorus Magnesium Total Bilirubin AST ALT Alkaline Phosphatase Ammonia Total Creatine Kinase CK-MB (CK-2) CK-MB (CK-2) Rel Index Total Protein Albumin Urine WBC (Auto) Vancomycin Trough Salicylates Acetaminophen Plasma/Serum Alcohol Crossmatch 12/21/19 12/21/19 12/21/19 03:28 03:28 07:21 WBC 29.4 H RBC 2.30 L Hgb 6.8 L Hct 20.2 L MCH RDW 20.2 H Plt Count 746 H Lymph % (Auto) [place] % (Auto) [place] # Baso # Seg Neutrophils % Seg Neuts % (Manual) 85.0 H Lymphocytes % (Manual) 8.0 L Monocytes % (Manual) Seg Neutrophils # Seg Neutrophils # Man 25.0 H Lymphocytes # (Manual) Monocytes # (Manual) 1.5 H Eosinophils # (Manual) 0.6 H Basophils # (Manual) PT INR APTT ABG pH ABG pO2 ABG HCO3 ABG O2 Saturation ABG Base Excess ABG Hemoglobin Oxyhemoglobin Sodium Potassium Chloride Carbon Dioxide 17 L BUN 57 H Creatinine 1.4 H D Glucose POC Glucose 124 H Lactic Acid Calcium Ionized Calcium Phosphorus Magnesium Total Bilirubin AST ALT Alkaline Phosphatase Ammonia Total Creatine Kinase CK-MB (CK-2) CK-MB (CK-2) Rel Index Total Protein Albumin Urine WBC (Auto) Vancomycin Trough Salicylates Acetaminophen Plasma/Serum Alcohol Crossmatch 12/21/19 12/21/19 12/21/19 08:56 12:06 14:53 WBC RBC Hgb 7.2 L Hct 22.9 L MCH RDW Plt Count Lymph % (Auto) [place] % (Auto) [place] # Baso # Seg Neutrophils % Seg Neuts % (Manual) Lymphocytes % (Manual) Monocytes % (Manual) Seg Neutrophils # Seg Neutrophils # Man Lymphocytes # (Manual) Monocytes # (Manual) Eosinophils # (Manual) Basophils # (Manual) PT INR APTT ABG pH ABG pO2 ABG HCO3 ABG O2 Saturation ABG Base Excess ABG Hemoglobin Oxyhemoglobin Sodium Potassium Chloride Carbon Dioxide BUN Creatinine Glucose POC Glucose 116 H Lactic Acid Calcium Ionized Calcium Phosphorus Magnesium Total Bilirubin AST ALT Alkaline Phosphatase Ammonia Total Creatine Kinase CK-MB (CK-2) CK-MB (CK-2) Rel Index Total Protein Albumin Urine WBC (Auto) Vancomycin Trough 33.8 H Salicylates Acetaminophen Plasma/Serum Alcohol Crossmatch 12/21/19 12/21/19 12/21/19 14:54 17:27 23:49 WBC RBC Hgb Hct MCH RDW Plt Count Lymph % (Auto) [place] % (Auto) [place] # Baso # Seg Neutrophils % Seg Neuts % (Manual) Lymphocytes % (Manual) Monocytes % (Manual) Seg Neutrophils # Seg Neutrophils # Man Lymphocytes # (Manual) Monocytes # (Manual) Eosinophils # (Manual) Basophils # (Manual) PT INR APTT ABG pH ABG pO2 ABG HCO3 ABG O2 Saturation ABG Base Excess ABG Hemoglobin Oxyhemoglobin Sodium Potassium Chloride Carbon Dioxide BUN Creatinine Glucose POC Glucose 145 H 127 H Lactic Acid Calcium Ionized Calcium Phosphorus Magnesium Total Bilirubin AST ALT Alkaline Phosphatase Ammonia Total Creatine Kinase CK-MB (CK-2) CK-MB (CK-2) Rel Index Total Protein Albumin Urine WBC (Auto) Vancomycin Trough Salicylates Acetaminophen Plasma/Serum Alcohol Crossmatch See Detail 12/22/19 12/22/19 12/22/19 04:43 05:56 08:40 WBC RBC Hgb Hct MCH RDW Plt Count Lymph % (Auto) [place] % (Auto) [place] # Baso # Seg Neutrophils % Seg Neuts % (Manual) Lymphocytes % (Manual) Monocytes % (Manual) Seg Neutrophils # Seg Neutrophils # Man Lymphocytes # (Manual) Monocytes # (Manual) Eosinophils # (Manual) Basophils # (Manual) PT INR APTT ABG pH ABG pO2 75.6 L ABG HCO3 ABG O2 Saturation ABG Base Excess -2.6 L ABG Hemoglobin 6.8 L Oxyhemoglobin 94.6 L Sodium Potassium Chloride Carbon Dioxide 17 L BUN 60 H Creatinine 1.4 H Glucose 126 H POC Glucose 153 H Lactic Acid Calcium Ionized Calcium Phosphorus Magnesium Total Bilirubin AST ALT Alkaline Phosphatase Ammonia Total Creatine Kinase CK-MB (CK-2) CK-MB (CK-2) Rel Index Total Protein Albumin Urine WBC (Auto) Vancomycin Trough Salicylates Acetaminophen Plasma/Serum Alcohol Crossmatch 12/22/19 12/22/19 12/23/19 12:07 17:49 04:30 WBC 22.4 H RBC 2.68 L Hgb 7.6 L Hct 22.9 L MCH RDW 19.9 H Plt Count 998 H Lymph % (Auto) [place] % (Auto) [place] # Baso # Seg Neutrophils % Seg Neuts % (Manual) 88.0 H Lymphocytes % (Manual) 2.0 L Monocytes % (Manual) 9.0 H Seg Neutrophils # Seg Neutrophils # Man 19.7 H Lymphocytes # (Manual) 0.4 L Monocytes # (Manual) 2.0 H Eosinophils # (Manual) Basophils # (Manual) PT INR APTT ABG pH ABG pO2 ABG HCO3 ABG O2 Saturation ABG Base Excess ABG Hemoglobin Oxyhemoglobin Sodium Potassium Chloride Carbon Dioxide BUN Creatinine Glucose POC Glucose 140 H 116 H Lactic Acid Calcium Ionized Calcium Phosphorus Magnesium Total Bilirubin AST ALT Alkaline Phosphatase Ammonia Total Creatine Kinase CK-MB (CK-2) CK-MB (CK-2) Rel Index Total Protein Albumin Urine WBC (Auto) Vancomycin Trough Salicylates Acetaminophen Plasma/Serum Alcohol Crossmatch 12/23/19 12/23/19 12/23/19 04:30 12:00 18:06 WBC RBC Hgb Hct MCH RDW Plt Count Lymph % (Auto) [place] % (Auto) [place] # Baso # Seg Neutrophils % Seg Neuts % (Manual) Lymphocytes % (Manual) Monocytes % (Manual) Seg Neutrophils # Seg Neutrophils # Man Lymphocytes # (Manual) Monocytes # (Manual) Eosinophils # (Manual) Basophils # (Manual) PT INR APTT ABG pH ABG pO2 ABG HCO3 ABG O2 Saturation ABG Base Excess ABG Hemoglobin Oxyhemoglobin Sodium Potassium 5.2 H Chloride Carbon Dioxide 21 L BUN 69 H Creatinine 1.5 H Glucose 117 H POC Glucose 128 H 138 H Lactic Acid Calcium Ionized Calcium Phosphorus Magnesium Total Bilirubin AST ALT Alkaline Phosphatase Ammonia Total Creatine Kinase CK-MB (CK-2) CK-MB (CK-2) Rel Index Total Protein Albumin Urine WBC (Auto) Vancomycin Trough Salicylates Acetaminophen Plasma/Serum Alcohol Crossmatch 12/23/19 12/24/19 12/24/19 23:46 04:31 05:08 WBC RBC Hgb Hct MCH RDW Plt Count Lymph % (Auto) [place] % (Auto) [place] # Baso # Seg Neutrophils % Seg Neuts % (Manual) Lymphocytes % (Manual) Monocytes % (Manual) Seg Neutrophils # Seg Neutrophils # Man Lymphocytes # (Manual) Monocytes # (Manual) Eosinophils # (Manual) Basophils # (Manual) PT INR APTT ABG pH ABG pO2 ABG HCO3 ABG O2 Saturation ABG Base Excess ABG Hemoglobin Oxyhemoglobin Sodium Potassium 5.3 H Chloride 107.6 H Carbon Dioxide 20 L BUN 72 H Creatinine 1.6 H Glucose 120 H POC Glucose 120 H 140 H Lactic Acid Calcium Ionized Calcium Phosphorus Magnesium Total Bilirubin AST ALT Alkaline Phosphatase Ammonia Total Creatine Kinase CK-MB (CK-2) CK-MB (CK-2) Rel Index Total Protein Albumin Urine WBC (Auto) Vancomycin Trough Salicylates Acetaminophen Plasma/Serum Alcohol Crossmatch 12/24/19 12/24/19 12/25/19 11:58 17:49 03:47 WBC 36.2 H RBC 2.92 L Hgb 8.4 L Hct 26.1 L MCH RDW 20.2 H Plt Count 942 H Lymph % (Auto) [place] % (Auto) [place] # Baso # Seg Neutrophils % Seg Neuts % (Manual) 97.5 H Lymphocytes % (Manual) 1.0 L Monocytes % (Manual) Seg Neutrophils # Seg Neutrophils # Man 35.3 H Lymphocytes # (Manual) 0.4 L Monocytes # (Manual) Eosinophils # (Manual) Basophils # (Manual) PT INR APTT ABG pH ABG pO2 ABG HCO3 ABG O2 Saturation ABG Base Excess ABG Hemoglobin Oxyhemoglobin Sodium Potassium Chloride Carbon Dioxide BUN Creatinine Glucose POC Glucose 146 H 131 H Lactic Acid Calcium Ionized Calcium Phosphorus Magnesium Total Bilirubin AST ALT Alkaline Phosphatase Ammonia Total Creatine Kinase CK-MB (CK-2) CK-MB (CK-2) Rel Index Total Protein Albumin Urine WBC (Auto) Vancomycin Trough Salicylates Acetaminophen Plasma/Serum Alcohol Crossmatch 12/25/19 12/25/19 12/25/19 03:47 05:30 12:23 WBC RBC Hgb Hct MCH RDW Plt Count Lymph % (Auto) [place] % (Auto) [place] # Baso # Seg Neutrophils % Seg Neuts % (Manual) Lymphocytes % (Manual) Monocytes % (Manual) Seg Neutrophils # Seg Neutrophils # Man Lymphocytes # (Manual) Monocytes # (Manual) Eosinophils # (Manual) Basophils # (Manual) PT INR APTT ABG pH ABG pO2 ABG HCO3 ABG O2 Saturation ABG Base Excess ABG Hemoglobin Oxyhemoglobin Sodium Potassium Chloride Carbon Dioxide 15 L BUN 70 H Creatinine 1.7 H Glucose 153 H POC Glucose 169 H 135 H Lactic Acid Calcium Ionized Calcium Phosphorus Magnesium Total Bilirubin AST ALT Alkaline Phosphatase Ammonia Total Creatine Kinase CK-MB (CK-2) CK-MB (CK-2) Rel Index Total Protein Albumin Urine WBC (Auto) Vancomycin Trough Salicylates Acetaminophen Plasma/Serum Alcohol Crossmatch 12/25/19 12/25/19 12/26/19 17:37 23:29 09:47 WBC 22.1 H RBC 2.83 L Hgb 7.9 L Hct 25.5 L MCH RDW 20.0 H Plt Count 894 H Lymph % (Auto) [place] % (Auto) [place] # Baso # Seg Neutrophils % Seg Neuts % (Manual) Lymphocytes % (Manual) Monocytes % (Manual) Seg Neutrophils # Seg Neutrophils # Man Lymphocytes # (Manual) Monocytes # (Manual) Eosinophils # (Manual) Basophils # (Manual) PT INR APTT ABG pH ABG pO2 ABG HCO3 ABG O2 Saturation ABG Base Excess ABG Hemoglobin Oxyhemoglobin Sodium Potassium Chloride Carbon Dioxide BUN Creatinine Glucose POC Glucose 120 H 140 H Lactic Acid Calcium Ionized Calcium Phosphorus Magnesium Total Bilirubin AST ALT Alkaline Phosphatase Ammonia Total Creatine Kinase CK-MB (CK-2) CK-MB (CK-2) Rel Index Total Protein Albumin Urine WBC (Auto) Vancomycin Trough Salicylates Acetaminophen Plasma/Serum Alcohol Crossmatch 12/26/19 12/26/19 12/26/19 09:47 11:46 17:52 WBC RBC Hgb Hct MCH RDW Plt Count Lymph % (Auto) [place] % (Auto) [place] # Baso # Seg Neutrophils % Seg Neuts % (Manual) Lymphocytes % (Manual) Monocytes % (Manual) Seg Neutrophils # Seg Neutrophils # Man Lymphocytes # (Manual) Monocytes # (Manual) Eosinophils # (Manual) Basophils # (Manual) PT INR APTT ABG pH ABG pO2 ABG HCO3 ABG O2 Saturation ABG Base Excess ABG Hemoglobin Oxyhemoglobin Sodium Potassium Chloride Carbon Dioxide 18 L BUN 65 H Creatinine 1.4 H Glucose 132 H POC Glucose 110 H 145 H Lactic Acid Calcium Ionized Calcium Phosphorus Magnesium Total Bilirubin AST ALT Alkaline Phosphatase Ammonia Total Creatine Kinase CK-MB (CK-2) CK-MB (CK-2) Rel Index Total Protein Albumin Urine WBC (Auto) Vancomycin Trough Salicylates Acetaminophen Plasma/Serum Alcohol Crossmatch 12/27/19 12/27/19 12/27/19 00:01 03:42 03:42 WBC 18.0 H RBC 2.86 L Hgb 8.0 L Hct 25.2 L MCH RDW 19.2 H Plt Count 873 H Lymph % (Auto) 8.4 L [place] % (Auto) 7.5 H [place] # 1.4 H Baso # 0.2 H Seg Neutrophils % 82.2 H Seg Neuts % (Manual) Lymphocytes % (Manual) Monocytes % (Manual) Seg Neutrophils # 14.8 H Seg Neutrophils # Man Lymphocytes # (Manual) Monocytes # (Manual) Eosinophils # (Manual) Basophils # (Manual) PT INR APTT ABG pH ABG pO2 ABG HCO3 ABG O2 Saturation ABG Base Excess ABG Hemoglobin Oxyhemoglobin Sodium Potassium Chloride Carbon Dioxide BUN 73 H Creatinine 1.4 H Glucose 119 H POC Glucose 124 H Lactic Acid Calcium Ionized Calcium Phosphorus Magnesium Total Bilirubin AST ALT Alkaline Phosphatase Ammonia Total Creatine Kinase CK-MB (CK-2) CK-MB (CK-2) Rel Index Total Protein Albumin Urine WBC (Auto) Vancomycin Trough Salicylates Acetaminophen Plasma/Serum Alcohol Crossmatch 12/27/19 12/27/19 12/27/19 05:45 11:45 17:29 WBC RBC Hgb Hct MCH RDW Plt Count Lymph % (Auto) [place] % (Auto) [place] # Baso # Seg Neutrophils % Seg Neuts % (Manual) Lymphocytes % (Manual) Monocytes % (Manual) Seg Neutrophils # Seg Neutrophils # Man Lymphocytes # (Manual) Monocytes # (Manual) Eosinophils # (Manual) Basophils # (Manual) PT INR APTT ABG pH ABG pO2 ABG HCO3 ABG O2 Saturation ABG Base Excess ABG Hemoglobin Oxyhemoglobin Sodium Potassium Chloride Carbon Dioxide BUN Creatinine Glucose POC Glucose 131 H 123 H 134 H Lactic Acid Calcium Ionized Calcium Phosphorus Magnesium Total Bilirubin AST ALT Alkaline Phosphatase Ammonia Total Creatine Kinase CK-MB (CK-2) CK-MB (CK-2) Rel Index Total Protein Albumin Urine WBC (Auto) Vancomycin Trough Salicylates Acetaminophen Plasma/Serum Alcohol Crossmatch 12/28/19 12/28/19 12/28/19 00:12 05:14 11:53 WBC RBC Hgb Hct MCH RDW Plt Count Lymph % (Auto) [place] % (Auto) [place] # Baso # Seg Neutrophils % Seg Neuts % (Manual) Lymphocytes % (Manual) Monocytes % (Manual) Seg Neutrophils # Seg Neutrophils # Man Lymphocytes # (Manual) Monocytes # (Manual) Eosinophils # (Manual) Basophils # (Manual) PT INR APTT ABG pH ABG pO2 ABG HCO3 ABG O2 Saturation ABG Base Excess ABG Hemoglobin Oxyhemoglobin Sodium Potassium Chloride Carbon Dioxide BUN Creatinine Glucose POC Glucose 138 H 130 H 146 H Lactic Acid Calcium Ionized Calcium Phosphorus Magnesium Total Bilirubin AST ALT Alkaline Phosphatase Ammonia Total Creatine Kinase CK-MB (CK-2) CK-MB (CK-2) Rel Index Total Protein Albumin Urine WBC (Auto) Vancomycin Trough Salicylates Acetaminophen Plasma/Serum Alcohol Crossmatch 12/28/19 12/29/19 12/29/19 17:39 00:01 18:11 WBC RBC Hgb Hct MCH RDW Plt Count Lymph % (Auto) [place] % (Auto) [place] # Baso # Seg Neutrophils % Seg Neuts % (Manual) Lymphocytes % (Manual) Monocytes % (Manual) Seg Neutrophils # Seg Neutrophils # Man Lymphocytes # (Manual) Monocytes # (Manual) Eosinophils # (Manual) Basophils # (Manual) PT INR APTT ABG pH ABG pO2 ABG HCO3 ABG O2 Saturation ABG Base Excess ABG Hemoglobin Oxyhemoglobin Sodium Potassium Chloride Carbon Dioxide BUN Creatinine Glucose POC Glucose 117 H 139 H 130 H Lactic Acid Calcium Ionized Calcium Phosphorus Magnesium Total Bilirubin AST ALT Alkaline Phosphatase Ammonia Total Creatine Kinase CK-MB (CK-2) CK-MB (CK-2) Rel Index Total Protein Albumin Urine WBC (Auto) Vancomycin Trough Salicylates Acetaminophen Plasma/Serum Alcohol Crossmatch 12/29/19 12/30/19 12/30/19 23:09 00:02 01:06 WBC 16.7 H RBC 2.91 L Hgb 8.2 L Hct 25.4 L MCH RDW 18.7 H Plt Count 708 H Lymph % (Auto) 9.4 L [place] % (Auto) [place] # 0.9 H Baso # Seg Neutrophils % 83.5 H Seg Neuts % (Manual) Lymphocytes % (Manual) Monocytes % (Manual) Seg Neutrophils # 14.0 H Seg Neutrophils # Man Lymphocytes # (Manual) Monocytes # (Manual) Eosinophils # (Manual) Basophils # (Manual) PT INR APTT ABG pH ABG pO2 ABG HCO3 ABG O2 Saturation ABG Base Excess ABG Hemoglobin Oxyhemoglobin Sodium Potassium Chloride Carbon Dioxide BUN Creatinine Glucose POC Glucose 120 H 114 H Lactic Acid Calcium Ionized Calcium Phosphorus Magnesium Total Bilirubin AST ALT Alkaline Phosphatase Ammonia Total Creatine Kinase CK-MB (CK-2) CK-MB (CK-2) Rel Index Total Protein Albumin Urine WBC (Auto) Vancomycin Trough Salicylates Acetaminophen Plasma/Serum Alcohol Crossmatch 12/30/19 12/30/19 12/30/19 01:06 04:23 05:18 WBC RBC Hgb Hct MCH RDW Plt Count Lymph % (Auto) [place] % (Auto) [place] # Baso # Seg Neutrophils % Seg Neuts % (Manual) Lymphocytes % (Manual) Monocytes % (Manual) Seg Neutrophils # Seg Neutrophils # Man Lymphocytes # (Manual) Monocytes # (Manual) Eosinophils # (Manual) Basophils # (Manual) PT INR APTT ABG pH ABG pO2 ABG HCO3 ABG O2 Saturation ABG Base Excess ABG Hemoglobin 8.3 L Oxyhemoglobin Sodium Potassium Chloride Carbon Dioxide BUN 70 H Creatinine Glucose 122 H POC Glucose 130 H Lactic Acid Calcium Ionized Calcium Phosphorus Magnesium Total Bilirubin AST ALT Alkaline Phosphatase Ammonia Total Creatine Kinase CK-MB (CK-2) CK-MB (CK-2) Rel Index Total Protein Albumin Urine WBC (Auto) Vancomycin Trough Salicylates Acetaminophen Plasma/Serum Alcohol Crossmatch 12/30/19 12/30/19 12/30/19 05:40 12:17 17:43 WBC RBC Hgb Hct MCH RDW Plt Count Lymph % (Auto) [place] % (Auto) [place] # Baso # Seg Neutrophils % Seg Neuts % (Manual) Lymphocytes % (Manual) Monocytes % (Manual) Seg Neutrophils # Seg Neutrophils # Man Lymphocytes # (Manual) Monocytes # (Manual) Eosinophils # (Manual) Basophils # (Manual) PT INR APTT ABG pH ABG pO2 ABG HCO3 ABG O2 Saturation ABG Base Excess ABG Hemoglobin Oxyhemoglobin Sodium Potassium Chloride Carbon Dioxide BUN Creatinine Glucose POC Glucose 135 H 132 H 118 H Lactic Acid Calcium Ionized Calcium Phosphorus Magnesium Total Bilirubin AST ALT Alkaline Phosphatase Ammonia Total Creatine Kinase CK-MB (CK-2) CK-MB (CK-2) Rel Index Total Protein Albumin Urine WBC (Auto) Vancomycin Trough Salicylates Acetaminophen Plasma/Serum Alcohol Crossmatch 12/30/19 12/31/19 12/31/19 23:29 05:19 17:50 WBC RBC Hgb Hct MCH RDW Plt Count Lymph % (Auto) [place] % (Auto) [place] # Baso # Seg Neutrophils % Seg Neuts % (Manual) Lymphocytes % (Manual) Monocytes % (Manual) Seg Neutrophils # Seg Neutrophils # Man Lymphocytes # (Manual) Monocytes # (Manual) Eosinophils # (Manual) Basophils # (Manual) PT INR APTT ABG pH ABG pO2 ABG HCO3 ABG O2 Saturation ABG Base Excess ABG Hemoglobin Oxyhemoglobin Sodium Potassium Chloride Carbon Dioxide BUN Creatinine Glucose POC Glucose 114 H 109 H 116 H Lactic Acid Calcium Ionized Calcium Phosphorus Magnesium Total Bilirubin AST ALT Alkaline Phosphatase Ammonia Total Creatine Kinase CK-MB (CK-2) CK-MB (CK-2) Rel Index Total Protein Albumin Urine WBC (Auto) Vancomycin Trough Salicylates Acetaminophen Plasma/Serum Alcohol Crossmatch 01/01/20 01/01/20 01/01/20 00:10 05:19 12:02 WBC RBC Hgb Hct MCH RDW Plt Count Lymph % (Auto) [place] % (Auto) [place] # Baso # Seg Neutrophils % Seg Neuts % (Manual) Lymphocytes % (Manual) Monocytes % (Manual) Seg Neutrophils # Seg Neutrophils # Man Lymphocytes # (Manual) Monocytes # (Manual) Eosinophils # (Manual) Basophils # (Manual) PT INR APTT ABG pH ABG pO2 ABG HCO3 ABG O2 Saturation ABG Base Excess ABG Hemoglobin Oxyhemoglobin Sodium Potassium Chloride Carbon Dioxide BUN Creatinine Glucose POC Glucose 131 H 122 H 136 H Lactic Acid Calcium Ionized Calcium Phosphorus Magnesium Total Bilirubin AST ALT Alkaline Phosphatase Ammonia Total Creatine Kinase CK-MB (CK-2) CK-MB (CK-2) Rel Index Total Protein Albumin Urine WBC (Auto) Vancomycin Trough Salicylates Acetaminophen Plasma/Serum Alcohol Crossmatch 01/02/20 01/02/20 01/02/20 00:24 05:36 11:41 WBC RBC Hgb Hct MCH RDW Plt Count Lymph % (Auto) [place] % (Auto) [place] # Baso # Seg Neutrophils % Seg Neuts % (Manual) Lymphocytes % (Manual) Monocytes % (Manual) Seg Neutrophils # Seg Neutrophils # Man Lymphocytes # (Manual) Monocytes # (Manual) Eosinophils # (Manual) Basophils # (Manual) PT INR APTT ABG pH ABG pO2 ABG HCO3 ABG O2 Saturation ABG Base Excess ABG Hemoglobin Oxyhemoglobin Sodium Potassium Chloride Carbon Dioxide BUN Creatinine Glucose POC Glucose 119 H 109 H 125 H Lactic Acid Calcium Ionized Calcium Phosphorus Magnesium Total Bilirubin AST ALT Alkaline Phosphatase Ammonia Total Creatine Kinase CK-MB (CK-2) CK-MB (CK-2) Rel Index Total Protein Albumin Urine WBC (Auto) Vancomycin Trough Salicylates Acetaminophen Plasma/Serum Alcohol Crossmatch 01/02/20 01/03/20 01/03/20 17:49 05:29 12:13 WBC RBC Hgb Hct MCH RDW Plt Count Lymph % (Auto) [place] % (Auto) [place] # Baso # Seg Neutrophils % Seg Neuts % (Manual) Lymphocytes % (Manual) Monocytes % (Manual) Seg Neutrophils # Seg Neutrophils # Man Lymphocytes # (Manual) Monocytes # (Manual) Eosinophils # (Manual) Basophils # (Manual) PT INR APTT ABG pH ABG pO2 ABG HCO3 ABG O2 Saturation ABG Base Excess ABG Hemoglobin Oxyhemoglobin Sodium Potassium Chloride Carbon Dioxide BUN Creatinine Glucose POC Glucose 130 H 132 H 113 H Lactic Acid Calcium Ionized Calcium Phosphorus Magnesium Total Bilirubin AST ALT Alkaline Phosphatase Ammonia Total Creatine Kinase CK-MB (CK-2) CK-MB (CK-2) Rel Index Total Protein Albumin Urine WBC (Auto) Vancomycin Trough Salicylates Acetaminophen Plasma/Serum Alcohol Crossmatch 01/03/20 01/04/20 01/04/20 17:32 00:19 05:26 WBC RBC Hgb Hct MCH RDW Plt Count Lymph % (Auto) [place] % (Auto) [place] # Baso # Seg Neutrophils % Seg Neuts % (Manual) Lymphocytes % (Manual) Monocytes % (Manual) Seg Neutrophils # Seg Neutrophils # Man Lymphocytes # (Manual) Monocytes # (Manual) Eosinophils # (Manual) Basophils # (Manual) PT INR APTT ABG pH ABG pO2 ABG HCO3 ABG O2 Saturation ABG Base Excess ABG Hemoglobin Oxyhemoglobin Sodium Potassium Chloride Carbon Dioxide BUN Creatinine Glucose POC Glucose 127 H 141 H 129 H Lactic Acid Calcium Ionized Calcium Phosphorus Magnesium Total Bilirubin AST ALT Alkaline Phosphatase Ammonia Total Creatine Kinase CK-MB (CK-2) CK-MB (CK-2) Rel Index Total Protein Albumin Urine WBC (Auto) Vancomycin Trough Salicylates Acetaminophen Plasma/Serum Alcohol Crossmatch 01/04/20 01/04/20 01/05/20 11:39 17:29 05:22 WBC RBC Hgb Hct MCH RDW Plt Count Lymph % (Auto) [place] % (Auto) [place] # Baso # Seg Neutrophils % Seg Neuts % (Manual) Lymphocytes % (Manual) Monocytes % (Manual) Seg Neutrophils # Seg Neutrophils # Man Lymphocytes # (Manual) Monocytes # (Manual) Eosinophils # (Manual) Basophils # (Manual) PT INR APTT ABG pH ABG pO2 ABG HCO3 ABG O2 Saturation ABG Base Excess ABG Hemoglobin Oxyhemoglobin Sodium Potassium Chloride Carbon Dioxide BUN Creatinine Glucose POC Glucose 167 H 132 H 121 H Lactic Acid Calcium Ionized Calcium Phosphorus Magnesium Total Bilirubin AST ALT Alkaline Phosphatase Ammonia Total Creatine Kinase CK-MB (CK-2) CK-MB (CK-2) Rel Index Total Protein Albumin Urine WBC (Auto) Vancomycin Trough Salicylates Acetaminophen Plasma/Serum Alcohol Crossmatch 01/05/20 01/05/20 01/05/20 12:25 17:40 18:06 WBC RBC Hgb Hct MCH RDW Plt Count Lymph % (Auto) [place] % (Auto) [place] # Baso # Seg Neutrophils % Seg Neuts % (Manual) Lymphocytes % (Manual) Monocytes % (Manual) Seg Neutrophils # Seg Neutrophils # Man Lymphocytes # (Manual) Monocytes # (Manual) Eosinophils # (Manual) Basophils # (Manual) PT INR APTT ABG pH 7.472 H ABG pO2 99.2 H ABG HCO3 ABG O2 Saturation ABG Base Excess ABG Hemoglobin 7.8 L Oxyhemoglobin Sodium Potassium Chloride Carbon Dioxide BUN Creatinine Glucose POC Glucose 106 H 110 H Lactic Acid Calcium Ionized Calcium Phosphorus Magnesium Total Bilirubin AST ALT Alkaline Phosphatase Ammonia Total Creatine Kinase CK-MB (CK-2) CK-MB (CK-2) Rel Index Total Protein Albumin Urine WBC (Auto) Vancomycin Trough Salicylates Acetaminophen Plasma/Serum Alcohol Crossmatch 01/06/20 01/06/20 01/06/20 00:11 05:16 11:30 WBC RBC Hgb Hct MCH RDW Plt Count Lymph % (Auto) [place] % (Auto) [place] # Baso # Seg Neutrophils % Seg Neuts % (Manual) Lymphocytes % (Manual) Monocytes % (Manual) Seg Neutrophils # Seg Neutrophils # Man Lymphocytes # (Manual) Monocytes # (Manual) Eosinophils # (Manual) Basophils # (Manual) PT INR APTT ABG pH ABG pO2 ABG HCO3 ABG O2 Saturation ABG Base Excess ABG Hemoglobin Oxyhemoglobin Sodium Potassium Chloride Carbon Dioxide BUN Creatinine Glucose POC Glucose 108 H 124 H 125 H Lactic Acid Calcium Ionized Calcium Phosphorus Magnesium Total Bilirubin AST ALT Alkaline Phosphatase Ammonia Total Creatine Kinase CK-MB (CK-2) CK-MB (CK-2) Rel Index Total Protein Albumin Urine WBC (Auto) Vancomycin Trough Salicylates Acetaminophen Plasma/Serum Alcohol Crossmatch 01/06/20 01/06/20 01/07/20 17:53 23:51 04:12 WBC 16.5 H RBC 3.29 L Hgb 9.3 L Hct 28.1 L MCH RDW 18.2 H Plt Count 526 H Lymph % (Auto) 8.4 L [place] % (Auto) [place] # 1.0 H Baso # Seg Neutrophils % 84.4 H Seg Neuts % (Manual) Lymphocytes % (Manual) Monocytes % (Manual) Seg Neutrophils # 13.9 H Seg Neutrophils # Man Lymphocytes # (Manual) Monocytes # (Manual) Eosinophils # (Manual) Basophils # (Manual) PT INR APTT ABG pH ABG pO2 ABG HCO3 ABG O2 Saturation ABG Base Excess ABG Hemoglobin Oxyhemoglobin Sodium Potassium Chloride Carbon Dioxide BUN Creatinine Glucose POC Glucose 166 H 128 H Lactic Acid Calcium Ionized Calcium Phosphorus Magnesium Total Bilirubin AST ALT Alkaline Phosphatase Ammonia Total Creatine Kinase CK-MB (CK-2) CK-MB (CK-2) Rel Index Total Protein Albumin Urine WBC (Auto) Vancomycin Trough Salicylates Acetaminophen Plasma/Serum Alcohol Crossmatch 01/07/20 01/07/20 01/07/20 04:12 04:45 11:51 WBC RBC Hgb Hct MCH RDW Plt Count Lymph % (Auto) [place] % (Auto) [place] # Baso # Seg Neutrophils % Seg Neuts % (Manual) Lymphocytes % (Manual) Monocytes % (Manual) Seg Neutrophils # Seg Neutrophils # Man Lymphocytes # (Manual) Monocytes # (Manual) Eosinophils # (Manual) Basophils # (Manual) PT INR APTT ABG pH ABG pO2 ABG HCO3 ABG O2 Saturation ABG Base Excess ABG Hemoglobin Oxyhemoglobin Sodium 136 L Potassium Chloride Carbon Dioxide 21 L BUN 44 H Creatinine 0.6 L Glucose 124 H POC Glucose 134 H 138 H Lactic Acid Calcium Ionized Calcium Phosphorus Magnesium Total Bilirubin AST ALT Alkaline Phosphatase Ammonia Total Creatine Kinase CK-MB (CK-2) CK-MB (CK-2) Rel Index Total Protein Albumin Urine WBC (Auto) Vancomycin Trough Salicylates Acetaminophen Plasma/Serum Alcohol Crossmatch 01/07/20 01/08/20 01/08/20 17:36 00:33 05:29 WBC RBC Hgb Hct MCH RDW Plt Count Lymph % (Auto) [place] % (Auto) [place] # Baso # Seg Neutrophils % Seg Neuts % (Manual) Lymphocytes % (Manual) Monocytes % (Manual) Seg Neutrophils # Seg Neutrophils # Man Lymphocytes # (Manual) Monocytes # (Manual) Eosinophils # (Manual) Basophils # (Manual) PT INR APTT ABG pH ABG pO2 ABG HCO3 ABG O2 Saturation ABG Base Excess ABG Hemoglobin Oxyhemoglobin Sodium Potassium Chloride Carbon Dioxide BUN Creatinine Glucose POC Glucose 128 H 119 H 124 H Lactic Acid Calcium Ionized Calcium Phosphorus Magnesium Total Bilirubin AST ALT Alkaline Phosphatase Ammonia Total Creatine Kinase CK-MB (CK-2) CK-MB (CK-2) Rel Index Total Protein Albumin Urine WBC (Auto) Vancomycin Trough Salicylates Acetaminophen Plasma/Serum Alcohol Crossmatch 01/08/20 01/08/20 01/08/20 12:51 20:25 23:22 WBC RBC Hgb Hct MCH RDW Plt Count Lymph % (Auto) [place] % (Auto) [place] # Baso # Seg Neutrophils % Seg Neuts % (Manual) Lymphocytes % (Manual) Monocytes % (Manual) Seg Neutrophils # Seg Neutrophils # Man Lymphocytes # (Manual) Monocytes # (Manual) Eosinophils # (Manual) Basophils # (Manual) PT INR APTT ABG pH ABG pO2 132.2 H ABG HCO3 ABG O2 Saturation ABG Base Excess ABG Hemoglobin Oxyhemoglobin Sodium Potassium Chloride Carbon Dioxide BUN Creatinine Glucose POC Glucose 128 H 127 H Lactic Acid Calcium Ionized Calcium Phosphorus Magnesium Total Bilirubin AST ALT Alkaline Phosphatase Ammonia Total Creatine Kinase CK-MB (CK-2) CK-MB (CK-2) Rel Index Total Protein Albumin Urine WBC (Auto) Vancomycin Trough Salicylates Acetaminophen Plasma/Serum Alcohol Crossmatch 01/09/20 01/09/20 01/09/20 05:48 08:51 11:29 WBC RBC Hgb Hct MCH RDW Plt Count Lymph % (Auto) [place] % (Auto) [place] # Baso # Seg Neutrophils % Seg Neuts % (Manual) Lymphocytes % (Manual) Monocytes % (Manual) Seg Neutrophils # Seg Neutrophils # Man Lymphocytes # (Manual) Monocytes # (Manual) Eosinophils # (Manual) Basophils # (Manual) PT INR APTT ABG pH ABG pO2 94.3 H ABG HCO3 ABG O2 Saturation ABG Base Excess ABG Hemoglobin 9.5 L Oxyhemoglobin Sodium Potassium Chloride Carbon Dioxide BUN Creatinine Glucose POC Glucose 120 H 112 H Lactic Acid Calcium Ionized Calcium Phosphorus Magnesium Total Bilirubin AST ALT Alkaline Phosphatase Ammonia Total Creatine Kinase CK-MB (CK-2) CK-MB (CK-2) Rel Index Total Protein Albumin Urine WBC (Auto) Vancomycin Trough Salicylates Acetaminophen Plasma/Serum Alcohol Crossmatch 01/09/20 01/10/20 01/10/20 17:57 05:17 12:28 WBC RBC Hgb Hct MCH RDW Plt Count Lymph % (Auto) [place] % (Auto) [place] # Baso # Seg Neutrophils % Seg Neuts % (Manual) Lymphocytes % (Manual) Monocytes % (Manual) Seg Neutrophils # Seg Neutrophils # Man Lymphocytes # (Manual) Monocytes # (Manual) Eosinophils # (Manual) Basophils # (Manual) PT INR APTT ABG pH ABG pO2 ABG HCO3 ABG O2 Saturation ABG Base Excess ABG Hemoglobin Oxyhemoglobin Sodium Potassium Chloride Carbon Dioxide BUN Creatinine Glucose POC Glucose 122 H 115 H 116 H Lactic Acid Calcium Ionized Calcium Phosphorus Magnesium Total Bilirubin AST ALT Alkaline Phosphatase Ammonia Total Creatine Kinase CK-MB (CK-2) CK-MB (CK-2) Rel Index Total Protein Albumin Urine WBC (Auto) Vancomycin Trough Salicylates Acetaminophen Plasma/Serum Alcohol Crossmatch 01/10/20 01/10/20 01/11/20 18:25 23:47 06:05 WBC RBC Hgb Hct MCH RDW Plt Count Lymph % (Auto) [place] % (Auto) [place] # Baso # Seg Neutrophils % Seg Neuts % (Manual) Lymphocytes % (Manual) Monocytes % (Manual) Seg Neutrophils # Seg Neutrophils # Man Lymphocytes # (Manual) Monocytes # (Manual) Eosinophils # (Manual) Basophils # (Manual) PT INR APTT ABG pH ABG pO2 ABG HCO3 ABG O2 Saturation ABG Base Excess ABG Hemoglobin Oxyhemoglobin Sodium Potassium Chloride Carbon Dioxide BUN Creatinine Glucose POC Glucose 123 H 115 H 151 H Lactic Acid Calcium Ionized Calcium Phosphorus Magnesium Total Bilirubin AST ALT Alkaline Phosphatase Ammonia Total Creatine Kinase CK-MB (CK-2) CK-MB (CK-2) Rel Index Total Protein Albumin Urine WBC (Auto) Vancomycin Trough Salicylates Acetaminophen Plasma/Serum Alcohol Crossmatch 01/11/20 01/11/20 01/11/20 07:00 07:00 12:27 WBC 11.8 H RBC 3.40 L Hgb 9.4 L Hct 29.3 L MCH RDW 18.1 H Plt Count 549 H Lymph % (Auto) [place] % (Auto) 9.1 H [place] # 1.1 H Baso # Seg Neutrophils % 73.3 H Seg Neuts % (Manual) Lymphocytes % (Manual) Monocytes % (Manual) Seg Neutrophils # 8.7 H Seg Neutrophils # Man Lymphocytes # (Manual) Monocytes # (Manual) Eosinophils # (Manual) Basophils # (Manual) PT INR APTT ABG pH ABG pO2 ABG HCO3 ABG O2 Saturation ABG Base Excess ABG Hemoglobin Oxyhemoglobin Sodium 134 L Potassium Chloride 97.7 L Carbon Dioxide 21 L BUN 38 H Creatinine 0.5 L Glucose 168 H POC Glucose 117 H Lactic Acid Calcium 10.5 H Ionized Calcium Phosphorus Magnesium Total Bilirubin AST ALT Alkaline Phosphatase Ammonia Total Creatine Kinase CK-MB (CK-2) CK-MB (CK-2) Rel Index Total Protein Albumin Urine WBC (Auto) Vancomycin Trough Salicylates Acetaminophen Plasma/Serum Alcohol Crossmatch 01/11/20 01/12/20 01/12/20 18:19 00:53 05:24 WBC RBC Hgb Hct MCH RDW Plt Count Lymph % (Auto) [place] % (Auto) [place] # Baso # Seg Neutrophils % Seg Neuts % (Manual) Lymphocytes % (Manual) Monocytes % (Manual) Seg Neutrophils # Seg Neutrophils # Man Lymphocytes # (Manual) Monocytes # (Manual) Eosinophils # (Manual) Basophils # (Manual) PT INR APTT ABG pH ABG pO2 ABG HCO3 ABG O2 Saturation ABG Base Excess ABG Hemoglobin Oxyhemoglobin Sodium Potassium Chloride Carbon Dioxide BUN Creatinine Glucose POC Glucose 126 H 126 H 128 H Lactic Acid Calcium Ionized Calcium Phosphorus Magnesium Total Bilirubin AST ALT Alkaline Phosphatase Ammonia Total Creatine Kinase CK-MB (CK-2) CK-MB (CK-2) Rel Index Total Protein Albumin Urine WBC (Auto) Vancomycin Trough Salicylates Acetaminophen Plasma/Serum Alcohol Crossmatch 01/12/20 01/12/20 01/13/20 13:39 18:02 00:27 WBC RBC Hgb Hct MCH RDW Plt Count Lymph % (Auto) [place] % (Auto) [place] # Baso # Seg Neutrophils % Seg Neuts % (Manual) Lymphocytes % (Manual) Monocytes % (Manual) Seg Neutrophils # Seg Neutrophils # Man Lymphocytes # (Manual) Monocytes # (Manual) Eosinophils # (Manual) Basophils # (Manual) PT INR APTT ABG pH ABG pO2 ABG HCO3 ABG O2 Saturation ABG Base Excess ABG Hemoglobin Oxyhemoglobin Sodium Potassium Chloride Carbon Dioxide BUN Creatinine Glucose POC Glucose 146 H 125 H 131 H Lactic Acid Calcium Ionized Calcium Phosphorus Magnesium Total Bilirubin AST ALT Alkaline Phosphatase Ammonia Total Creatine Kinase CK-MB (CK-2) CK-MB (CK-2) Rel Index Total Protein Albumin Urine WBC (Auto) Vancomycin Trough Salicylates Acetaminophen Plasma/Serum Alcohol Crossmatch 01/13/20 01/13/20 01/13/20 05:44 11:54 17:18 WBC RBC Hgb Hct MCH RDW Plt Count Lymph % (Auto) [place] % (Auto) [place] # Baso # Seg Neutrophils % Seg Neuts % (Manual) Lymphocytes % (Manual) Monocytes % (Manual) Seg Neutrophils # Seg Neutrophils # Man Lymphocytes # (Manual) Monocytes # (Manual) Eosinophils # (Manual) Basophils # (Manual) PT INR APTT ABG pH ABG pO2 ABG HCO3 ABG O2 Saturation ABG Base Excess ABG Hemoglobin Oxyhemoglobin Sodium Potassium Chloride Carbon Dioxide BUN Creatinine Glucose POC Glucose 148 H 140 H 130 H Lactic Acid Calcium Ionized Calcium Phosphorus Magnesium Total Bilirubin AST ALT Alkaline Phosphatase Ammonia Total Creatine Kinase CK-MB (CK-2) CK-MB (CK-2) Rel Index Total Protein Albumin Urine WBC (Auto) Vancomycin Trough Salicylates Acetaminophen Plasma/Serum Alcohol Crossmatch 01/14/20 01/14/20 01/14/20 00:16 05:45 12:19 WBC RBC Hgb Hct MCH RDW Plt Count Lymph % (Auto) [place] % (Auto) [place] # Baso # Seg Neutrophils % Seg Neuts % (Manual) Lymphocytes % (Manual) Monocytes % (Manual) Seg Neutrophils # Seg Neutrophils # Man Lymphocytes # (Manual) Monocytes # (Manual) Eosinophils # (Manual) Basophils # (Manual) PT INR APTT ABG pH ABG pO2 ABG HCO3 ABG O2 Saturation ABG Base Excess ABG Hemoglobin Oxyhemoglobin Sodium Potassium Chloride Carbon Dioxide BUN Creatinine Glucose POC Glucose 125 H 146 H 147 H Lactic Acid Calcium Ionized Calcium Phosphorus Magnesium Total Bilirubin AST ALT Alkaline Phosphatase Ammonia Total Creatine Kinase CK-MB (CK-2) CK-MB (CK-2) Rel Index Total Protein Albumin Urine WBC (Auto) Vancomycin Trough Salicylates Acetaminophen Plasma/Serum Alcohol Crossmatch 01/14/20 01/14/20 01/15/20 18:10 23:54 05:14 WBC RBC Hgb Hct MCH RDW Plt Count Lymph % (Auto) [place] % (Auto) [place] # Baso # Seg Neutrophils % Seg Neuts % (Manual) Lymphocytes % (Manual) Monocytes % (Manual) Seg Neutrophils # Seg Neutrophils # Man Lymphocytes # (Manual) Monocytes # (Manual) Eosinophils # (Manual) Basophils # (Manual) PT INR APTT ABG pH ABG pO2 ABG HCO3 ABG O2 Saturation ABG Base Excess ABG Hemoglobin Oxyhemoglobin Sodium Potassium Chloride Carbon Dioxide BUN Creatinine Glucose POC Glucose 136 H 109 H 111 H Lactic Acid Calcium Ionized Calcium Phosphorus Magnesium Total Bilirubin AST ALT Alkaline Phosphatase Ammonia Total Creatine Kinase CK-MB (CK-2) CK-MB (CK-2) Rel Index Total Protein Albumin Urine WBC (Auto) Vancomycin Trough Salicylates Acetaminophen Plasma/Serum Alcohol Crossmatch 01/15/20 01/15/20 01/16/20 12:34 23:25 05:06 WBC RBC Hgb Hct MCH RDW Plt Count Lymph % (Auto) [place] % (Auto) [place] # Baso # Seg Neutrophils % Seg Neuts % (Manual) Lymphocytes % (Manual) Monocytes % (Manual) Seg Neutrophils # Seg Neutrophils # Man Lymphocytes # (Manual) Monocytes # (Manual) Eosinophils # (Manual) Basophils # (Manual) PT INR APTT ABG pH ABG pO2 ABG HCO3 ABG O2 Saturation ABG Base Excess ABG Hemoglobin Oxyhemoglobin Sodium Potassium Chloride Carbon Dioxide BUN Creatinine Glucose POC Glucose 131 H 120 H 121 H Lactic Acid Calcium Ionized Calcium Phosphorus Magnesium Total Bilirubin AST ALT Alkaline Phosphatase Ammonia Total Creatine Kinase CK-MB (CK-2) CK-MB (CK-2) Rel Index Total Protein Albumin Urine WBC (Auto) Vancomycin Trough Salicylates Acetaminophen Plasma/Serum Alcohol Crossmatch 01/16/20 01/17/20 01/17/20 23:46 05:32 06:47 WBC 13.6 H RBC 3.27 L Hgb 9.3 L Hct 28.5 L MCH RDW 17.0 H Plt Count 490 H Lymph % (Auto) 13.1 L [place] % (Auto) [place] # 1.0 H Baso # Seg Neutrophils % 77.5 H Seg Neuts % (Manual) Lymphocytes % (Manual) Monocytes % (Manual) Seg Neutrophils # 10.5 H Seg Neutrophils # Man Lymphocytes # (Manual) Monocytes # (Manual) Eosinophils # (Manual) Basophils # (Manual) PT INR APTT ABG pH ABG pO2 ABG HCO3 ABG O2 Saturation ABG Base Excess ABG Hemoglobin Oxyhemoglobin Sodium Potassium Chloride Carbon Dioxide BUN Creatinine Glucose POC Glucose 107 H 112 H Lactic Acid Calcium Ionized Calcium Phosphorus Magnesium Total Bilirubin AST ALT Alkaline Phosphatase Ammonia Total Creatine Kinase CK-MB (CK-2) CK-MB (CK-2) Rel Index Total Protein Albumin Urine WBC (Auto) Vancomycin Trough Salicylates Acetaminophen Plasma/Serum Alcohol Crossmatch Chest x-ray: image reviewed Allied health notes reviewed: RT
[2020-01-17] MEDS: QUEtiapine 100 MG TAB FEEDTUBE SCH (22:38)
[2020-01-17] MEDS: MORPHINE 2 MG/1 ML INJ IV PRN (22:38)
[2020-01-18] MEDS: TAMSULOSIN 0.4 MG CAP PO SCH (09:30)
[2020-01-18] MEDS: levETIRAcetam 500 MG/5 ML ORAL LIQD PO SCH ×2 (09:30→22:08)
[2020-01-18] MEDS: GLYCOPYRROLATE 1 MG TAB PO SCH ×3 (09:30→22:08)
[2020-01-18] MEDS: MIRTAZAPINE 30 MG TAB PO SCH (09:30)
[2020-01-18] MEDS: LANSOPRAZOLE 30 MG SOLUTAB FEEDTUBE SCH (09:30)
[2020-01-18] MEDS: SERTRALINE 50 MG TAB PO SCH (09:31)
[2020-01-18] MEDS: hydrOXYzine PAMOATE 25 MG CAP PO SCH ×2 (09:31→22:09)
--- NOTE | 2020-01-18 10:29 | Progress Note ---
Assessment and Plan / Anoxic brain injury: suspected CT head: No acute abnormality. EEG ordered showed Generalized slowing. No seizures or epileptiform activity. Per neurology : Patient found to have intact corneal/VOR/cough reflexes, and is withdrawing lower extremities, given that patient had an out of hospital cardiac arrest, the time of which is uncertain, the likelihood of meaningful neurological recovery is somewhat low. -Patient now opening her eyes and able to follow any command by nodding head /Acute Respiratory failure -s/p intubation, s/p trach and PEG on 12/12 with mechanical ventilation, now on T-piece - CTA was done and negative for PE, - Echo quality is poor, showed diastolic dysfunction - continue weaning as tolerated /Anemia, microcytic - Status post 3 units PRBC transfusion, H&H low stable /Acute metabolic encephalopathy/toxic encephalopathy due to the above - cont supportive care /Hyperammonemia - likely from liver disease related to EtOH abuse - Patient had elevated ammonia level and treated with lactulose /Metabolic Acidosis -Alcohol ketoacidosis vs hypoprofusion -Continue to monitor /ELevated LFTs, stable now - due to ischemic hepatitis. /Leucocytosis with sepsis - Source MRSA bacteremia and MSSA pneumonia. UA showed pyuria. RUQ US showed no ascites. - Repeat TTE negative for vegetation. Completed 7 days of Ceftriaxone on 11/29/2019. -Treated with Abx vancomycin 1 gm IV q 12 hour total 2 week till 12/30/2019 /MSSA pneumonia: Status post vancomycin till 12/30/2019 /ALcohol USe Disorder - given ongoing Alcohol use almost daily, s/p IV Thiamine - monitor /Severe hypokalemia -Repleted /Seizure disorder: treat with Keppra /H. Influenzae, tracheobronchitis, treated with abx DNR CODE STATUS The high probability of a clinically significant, sudden or life threatening d eterioration of the [neurology,respiratory] system(s) required my full and direct attention, intervention and personal management. The aggregate critical care time was [32] minutes. This time is in addition to time spent performing reported procedures but includes the following: [x] Data Review and interpretation [x] Patient assessment and monitoring of vital signs [x] Documentation [x] Medication orders and management Disposition: prognosis guarded. Family okay for DNR, placement pending 01/09: daytime T-piece trials as tolerated and continue to rest on AC for now. pending placement 01/10; remains on ventilatory support DNR, for placement 01/11: Clinically stable, tracheostomy on T-piece, DC planning / placement 01/12: Clinically no change, awaiting placement 01/13: Tracheostomy on T-piece, stable, pending placement 01/14; no change clinically, DC planning 01/15: DC planning, social issues, stable for discharge 01/16 : Tracheostomy on T-piece , stable for discharge. pending d/c on social, financial, insurance issues, discharge planning pending d/c Brief History: 54-year-old female with a past medical history of Hypertension, Depression, T obacco use Disorder, Alcohol use Disorder as confirmed by Daughter and pt's mother presents to the hospital status post cardiac arrest at home. EMS found pt in [place]. They were unable to intubate patient with a ET tube because she was clenching down therefore Joe airway placed. Per the ED physician who evaluated pt, Patient presented with a pulse, intermittent respirations, and bagging support via Joe airway with O2 sat of 100%. Accu-Chek of 71 obtained by EMS. She was intubated in the ER and called for admission. Following admission patient was diagnosed with anoxic brain injury, sepsis with MRSA bacteremia and MSSA pneumonia, alcoholic liver disease. Family member initially wished for full code then changed to DNR, patient treated with IV antibiotics for sepsis, status post trach and PEG on 12/13/19. Weaned off from the vent and put on T- piece. Patient is uninsured, waiting for placement, guarded prognosis. Physical exam: General appearance: Present: other (elderly female, open eyes) - EENT Eyes: no scleral icterus, no conjunctival injection, pupil not reactive ENT: clear oral mucosa, dentition normal, no oropharyngeal erythema Ears: bilateral: normal - Neck Neck: trach on place - Respiratory Respiratory effort: other (on T-piece) Respiratory: bilateral: rales - Cardiovascular Rhythm: regular Heart Sounds: Present: S1 & S2. Absent: gallop, rub Extremities: pulses intact, No edema, normal color - Gastrointestinal General gastrointestinal: Present: soft, non-tender, non-distended, normal bowel sounds - Integumentary Integumentary: clear, warm, dry - Musculoskeletal Musculoskeletal: No joint swelling or tenderness - Neurologic Neurologic: other (2+ reflexes throughout). respond to commend and nods head. Moves only right hand - Psychiatric Psychiatric: Unable to assess Subjective Date of service: 01/18/20 Principal diagnosis: Ac cardiopulmonary arrest; Ac hypoxemic resp failure; Acute encephalopathy Interval history: Patient seen and examined medical records reviewed Patient is alert and awake not in acute distress Tracheostomy on T-piece Vital signs noted Objective - Constitutional Vitals: Vital Signs - 12hr 01/17/20 01/18/20 01/18/20 23:00 00:00 00:51 Temperature 97.9 F Pulse Rate 106 H 107 H Pulse Rate [ 106 H From Monitor] Respiratory 21 22 Rate Blood Pressure 120/74 114/72 O2 Sat by Pulse 100 99 Oximetry O2 Sat by Pulse 98 Oximetry [ Assessment] 01/18/20 01/18/20 01/18/20 01:00 02:00 03:00 Temperature Pulse Rate 109 H 112 H 99 H Pulse Rate [ From Monitor] Respiratory 23 18 25 H Rate Blood Pressure 114/72 114/72 114/72 O2 Sat by Pulse 99 100 99 Oximetry O2 Sat by Pulse Oximetry [ Assessment] 01/18/20 01/18/20 01/18/20 03:26 04:00 05:00 Temperature 97.8 F Pulse Rate 105 H 103 H Pulse Rate [ 103 H From Monitor] Respiratory 26 H 18 17 Rate Blood Pressure 129/75 129/75 O2 Sat by Pulse 99 99 100 Oximetry O2 Sat by Pulse Oximetry [ Assessment] 01/18/20 06:00 Temperature Pulse Rate 109 H Pulse Rate [ From Monitor] Respiratory 31 H Rate Blood Pressure 129/75 O2 Sat by Pulse 95 Oximetry O2 Sat by Pulse Oximetry [ Assessment] - Labs CBC & Chem 7: 01/17/20 05:32 01/11/20 07:00 Labs: Abnormal lab results 01/17/20 01/17/20 01/17/20 Range/Units 12:16 17:21 23:34 POC Glucose 145 H 150 H 160 H (70-105) 01/18/20 Range/Units 05:47 POC Glucose 130 H (70-105)
--- NOTE | 2020-01-18 16:08 | Progress Note ---
Assessment and Plan Acute cardiopulmonary arrest with ROSC Acute hypoxemic respiratory failure s/p MVS s/p Tracheostomy Oropharyngeal dysphagia s/p PEG MRSA Bacteremia- treated MRSA pneumonia-treated Acute ngipsvoye-lptvu-nymwzh encephalopathy Metabolic acidosis/alcoholic acidosis/Lactic acidosis( resolved) Ischemic hepatitis Erythrocytosis Tobacco use disorder Alcohol use Disorder -CBC, BMP prn -Replace and correct electrolytes as indicated -Trach care, airway clearance, secretion management( continue scopolamine patch and Robinul) -CXR, ABG prn -Weaning trials as tolerated- ATP then PMV and possible capping as tolerated by secretions -Continue contact isolation for MRSA -Trend WCC and temperature curve -Continue all care as documented below. -PT/OT -Supportive transfusions as indicated for HgB <7g/dL -Continue aspiration precautions, HOB>40 -Continue Stress ulcer prophylaxis -Continue enteric nutritional support at goal rate. -Continue to monitor glycemic control, with target blood glucose 140-180 mg/dL while critically ill. -Avoid hypoglycemia - Continue to wean supplemental oxygen for target O2 sat's > 90% -Continue thiamine, multivitamin and electrolyte replacement -Continue to avoid nephrotoxins, adjust all medications for GFR and CrCL - Continue bronchodilators with pulmonary hygiene - Continue prn analgesia per CPOT score - Continue to maintain of sleep-wake cycle, avoid delirium - Continue mobility protocol and skin assessment per protocol for pressure ulcer prevention - Continue to monitor for clinical seizures - continue other care per attending / other consultants CONDITION: FAIR PROGNOSIS: FAIR CODE STATUS: DNAR Subjective Date of service: 01/18/20 Principal diagnosis: Ac cardiopulmonary arrest; Ac hypoxemic resp failure; Acute encephalopathy Interval history: Patient is seen today for: Acute cardiopulmonary arrest with ROSC; Acute hypoxemic respiratory failure; Acute metabolic-toxic encephalopathy; Ischemic hepatitis; Leucocytosis with lactic acidosis; Tobacco use disorder; Alcohol use Disorder; s/p tracheostomy; s/p PEG Seen and examined at bedside; 24hour events reviewed; nursing and respiratory care staff consulted; no adverse overnight events reported to me; resting peacefully in bed; continues to tolerate ATP No fevers, no vomiting, continues to tolerate tube feedings Awake and alert, responsive No new issues Objective Vital Signs - 12hr 01/18/20 01/18/20 01/18/20 05:00 06:00 07:00 Temperature Pulse Rate 103 H 109 H 106 H Pulse Rate [ From Monitor] Respiratory 17 31 H 22 Rate Blood Pressure 129/75 129/75 129/75 O2 Sat by Pulse 100 95 96 Oximetry 01/18/20 01/18/20 01/18/20 08:00 09:00 10:00 Temperature 98.7 F Pulse Rate 109 H 106 H 106 H Pulse Rate [ 112 H From Monitor] Respiratory 34 H 27 H 31 H Rate Blood Pressure 129/75 129/75 129/75 O2 Sat by Pulse 95 97 98 Oximetry 01/18/20 01/18/20 01/18/20 11:00 12:00 13:00 Temperature 99.8 F H Pulse Rate 116 H 117 H 114 H Pulse Rate [ 115 H From Monitor] Respiratory 32 H 32 H 32 H Rate Blood Pressure 129/75 129/75 129/75 O2 Sat by Pulse 91 92 94 Oximetry 01/18/20 01/18/20 01/18/20 14:00 15:00 15:44 Temperature 98.2 F Pulse Rate 116 H 114 H Pulse Rate [ From Monitor] Respiratory 37 H 33 H Rate Blood Pressure 129/75 129/75 O2 Sat by Pulse 96 95 Oximetry Constitutional: no acute distress, other (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, with midline tracheostomy, ATP with copious thin secretions) Eyes: non-icteric ENT: oropharynx moist, other (s/p trach) Neck: supple, no lymphadenopathy, no JVD Effort: normal Ascultation: Bilateral: diminished breath sounds, rhonchi Percussion: Bilateral: not dull Cardiovascular: regular rate and rhythm (tachycardia), other (S1,S2) Gastrointestinal: normoactive bowel sounds, soft, non-tender, non-distended Integumentary: normal Extremities: no cyanosis, no edema, pulses normal, no ischemia or petechiae Neurologic: other (awake, following simple commands) Psychiatric: other (Psychiatric: Unable to assess re: AMS) CBC and BMP: 01/17/20 05:32 01/11/20 07:00 ABG, PT/INR, D-dimer: ABG ABG pH 7.429 pH Units (7.350-7.450) 01/09/20 08:51 ABG pCO2 39.1 mm Hg 01/09/20 08:51 ABG pO2 94.3 mm Hg (80.0-90.0) H 01/09/20 08:51 ABG O2 Saturation 97.4 % (95.0-99.0) 01/09/20 08:51 PT/INR, D-dimer PT 17.0 Sec. (12.2-14.9) H 11/23/19 03:47 INR 1.36 (0.87-1.13) H 11/23/19 03:47 Abnormal lab findings: Abnormal Labs 11/22/19 11/22/19 11/22/19 23:17 23:18 23:27 WBC 21.2 H RBC 3.59 L Hgb 9.8 L Hct MCH 27 L RDW 18.6 H Plt Count 454 H Lymph % (Auto) [place] % (Auto) [place] # Baso # Seg Neutrophils % Seg Neuts % (Manual) 86.0 H Lymphocytes % (Manual) 9.0 L Monocytes % (Manual) Seg Neutrophils # Seg Neutrophils # Man 18.2 H Lymphocytes # (Manual) Monocytes # (Manual) 1.1 H Eosinophils # (Manual) Basophils # (Manual) PT INR APTT ABG pH ABG pO2 ABG HCO3 ABG O2 Saturation ABG Base Excess ABG Hemoglobin Oxyhemoglobin Sodium Potassium Chloride Carbon Dioxide BUN Creatinine Glucose POC Glucose 53 L Lactic Acid Calcium Ionized Calcium Phosphorus Magnesium Total Bilirubin AST ALT Alkaline Phosphatase Ammonia Total Creatine Kinase CK-MB (CK-2) CK-MB (CK-2) Rel Index Total Protein Albumin Urine WBC (Auto) 40.0 H Vancomycin Trough Salicylates Acetaminophen Plasma/Serum Alcohol Crossmatch 11/22/19 11/22/19 11/22/19 23:27 23:27 23:27 WBC RBC Hgb Hct MCH RDW Plt Count Lymph % (Auto) [place] % (Auto) [place] # Baso # Seg Neutrophils % Seg Neuts % (Manual) Lymphocytes % (Manual) Monocytes % (Manual) Seg Neutrophils # Seg Neutrophils # Man Lymphocytes # (Manual) Monocytes # (Manual) Eosinophils # (Manual) Basophils # (Manual) PT INR APTT ABG pH ABG pO2 ABG HCO3 ABG O2 Saturation ABG Base Excess ABG Hemoglobin Oxyhemoglobin Sodium Potassium 2.4 L* Chloride 85.1 L Carbon Dioxide 19 L BUN Creatinine 0.5 L Glucose 261 H POC Glucose Lactic Acid Calcium Ionized Calcium Phosphorus Magnesium Total Bilirubin AST 609 H ALT 152 H Alkaline Phosphatase 160 H Ammonia 117.0 H Total Creatine Kinase 139 H CK-MB (CK-2) 8.3 H CK-MB (CK-2) Rel Index 5.9 H Total Protein Albumin 3.6 L Urine WBC (Auto) Vancomycin Trough Salicylates < 0.3 L Acetaminophen Plasma/Serum Alcohol Crossmatch 11/22/19 11/22/19 11/23/19 23:27 23:27 01:10 WBC RBC Hgb Hct MCH RDW Plt Count Lymph % (Auto) [place] % (Auto) [place] # Baso # Seg Neutrophils % Seg Neuts % (Manual) Lymphocytes % (Manual) Monocytes % (Manual) Seg Neutrophils # Seg Neutrophils # Man Lymphocytes # (Manual) Monocytes # (Manual) Eosinophils # (Manual) Basophils # (Manual) PT INR APTT ABG pH 7.273 L ABG pO2 209.7 H ABG HCO3 ABG O2 Saturation 99.2 H ABG Base Excess -3.9 L ABG Hemoglobin 10.6 L Oxyhemoglobin 93.9 L Sodium Potassium Chloride Carbon Dioxide BUN Creatinine Glucose POC Glucose Lactic Acid Calcium Ionized Calcium Phosphorus Magnesium Total Bilirubin AST ALT Alkaline Phosphatase Ammonia Total Creatine Kinase CK-MB (CK-2) CK-MB (CK-2) Rel Index Total Protein Albumin Urine WBC (Auto) Vancomycin Trough Salicylates Acetaminophen < 5.0 L Plasma/Serum Alcohol 0.08 H Crossmatch 11/23/19 11/23/19 11/23/19 01:19 01:19 03:47 WBC RBC Hgb Hct MCH RDW Plt Count Lymph % (Auto) [place] % (Auto) [place] # Baso # Seg Neutrophils % Seg Neuts % (Manual) Lymphocytes % (Manual) Monocytes % (Manual) Seg Neutrophils # Seg Neutrophils # Man Lymphocytes # (Manual) Monocytes # (Manual) Eosinophils # (Manual) Basophils # (Manual) PT 16.3 H INR 1.29 H APTT ABG pH ABG pO2 ABG HCO3 ABG O2 Saturation ABG Base Excess ABG Hemoglobin Oxyhemoglobin Sodium Potassium Chloride Carbon Dioxide BUN Creatinine Glucose POC Glucose Lactic Acid 2.10 H* 5.00 H* Calcium Ionized Calcium Phosphorus Magnesium Total Bilirubin AST ALT Alkaline Phosphatase Ammonia Total Creatine Kinase CK-MB (CK-2) CK-MB (CK-2) Rel Index Total Protein Albumin Urine WBC (Auto) Vancomycin Trough Salicylates Acetaminophen Plasma/Serum Alcohol Crossmatch 11/23/19 11/23/19 11/23/19 03:47 03:47 04:53 WBC RBC Hgb 9.4 L Hct MCH RDW Plt Count Lymph % (Auto) [place] % (Auto) [place] # Baso # Seg Neutrophils % Seg Neuts % (Manual) Lymphocytes % (Manual) Monocytes % (Manual) Seg Neutrophils # Seg Neutrophils # Man Lymphocytes # (Manual) Monocytes # (Manual) Eosinophils # (Manual) Basophils # (Manual) PT 17.0 H INR 1.36 H APTT 128.2 H* ABG pH ABG pO2 ABG HCO3 ABG O2 Saturation ABG Base Excess ABG Hemoglobin Oxyhemoglobin Sodium Potassium Chloride Carbon Dioxide 18 L BUN Creatinine 0.5 L Glucose 105 H POC Glucose Lactic Acid Calcium 8.3 L Ionized Calcium Phosphorus 2.40 L Magnesium Total Bilirubin 1.30 H AST 761 H ALT 158 H Alkaline Phosphatase 143 H Ammonia Total Creatine Kinase CK-MB (CK-2) CK-MB (CK-2) Rel Index Total Protein Albumin 2.8 L Urine WBC (Auto) Vancomycin Trough Salicylates Acetaminophen Plasma/Serum Alcohol Crossmatch 11/23/19 11/23/19 11/23/19 05:12 06:32 06:32 WBC 16.8 H RBC 3.31 L Hgb 8.9 L Hct 28.7 L MCH 27 L RDW 18.6 H Plt Count Lymph % (Auto) [place] % (Auto) [place] # Baso # Seg Neutrophils % Seg Neuts % (Manual) 94.0 H Lymphocytes % (Manual) 1.0 L Monocytes % (Manual) Seg Neutrophils # Seg Neutrophils # Man 15.8 H Lymphocytes # (Manual) 0.2 L Monocytes # (Manual) Eosinophils # (Manual) Basophils # (Manual) PT INR APTT ABG pH ABG pO2 ABG HCO3 ABG O2 Saturation ABG Base Excess -3.2 L ABG Hemoglobin 9.0 L Oxyhemoglobin 93.6 L Sodium Potassium Chloride Carbon Dioxide BUN Creatinine Glucose POC Glucose Lactic Acid Calcium Ionized Calcium 4.5 L Phosphorus Magnesium Total Bilirubin AST ALT Alkaline Phosphatase Ammonia Total Creatine Kinase CK-MB (CK-2) CK-MB (CK-2) Rel Index Total Protein Albumin Urine WBC (Auto) Vancomycin Trough Salicylates Acetaminophen Plasma/Serum Alcohol Crossmatch 11/23/19 11/24/19 11/24/19 06:32 04:35 04:35 WBC RBC Hgb Hct MCH RDW Plt Count Lymph % (Auto) [place] % (Auto) [place] # Baso # Seg Neutrophils % Seg Neuts % (Manual) Lymphocytes % (Manual) Monocytes % (Manual) Seg Neutrophils # Seg Neutrophils # Man Lymphocytes # (Manual) Monocytes # (Manual) Eosinophils # (Manual) Basophils # (Manual) PT INR APTT ABG pH ABG pO2 ABG HCO3 ABG O2 Saturation ABG Base Excess ABG Hemoglobin Oxyhemoglobin Sodium Potassium Chloride Carbon Dioxide BUN Creatinine Glucose POC Glucose Lactic Acid 3.30 H* Calcium Ionized Calcium Phosphorus Magnesium 1.40 L Total Bilirubin AST ALT Alkaline Phosphatase Ammonia 98.0 H Total Creatine Kinase CK-MB (CK-2) CK-MB (CK-2) Rel Index Total Protein Albumin Urine WBC (Auto) Vancomycin Trough Salicylates Acetaminophen Plasma/Serum Alcohol Crossmatch 11/24/19 11/25/19 11/25/19 05:22 04:34 05:05 WBC 17.3 H RBC 2.88 L Hgb 7.8 L Hct 24.6 L MCH 27 L RDW 18.5 H Plt Count Lymph % (Auto) 7.7 L [place] % (Auto) 9.7 H [place] # 1.7 H Baso # Seg Neutrophils % 82.2 H Seg Neuts % (Manual) Lymphocytes % (Manual) Monocytes % (Manual) Seg Neutrophils # 14.2 H Seg Neutrophils # Man Lymphocytes # (Manual) Monocytes # (Manual) Eosinophils # (Manual) Basophils # (Manual) PT INR APTT ABG pH 7.475 H ABG pO2 ABG HCO3 29.4 H 32.3 H ABG O2 Saturation ABG Base Excess 5.4 H 6.9 H ABG Hemoglobin 9.0 L 10.6 L Oxyhemoglobin 94.3 L Sodium Potassium Chloride Carbon Dioxide BUN Creatinine Glucose POC Glucose Lactic Acid Calcium Ionized Calcium Phosphorus Magnesium Total Bilirubin AST ALT Alkaline Phosphatase Ammonia Total Creatine Kinase CK-MB (CK-2) CK-MB (CK-2) Rel Index Total Protein Albumin Urine WBC (Auto) Vancomycin Trough Salicylates Acetaminophen Plasma/Serum Alcohol Crossmatch 11/25/19 11/25/19 11/26/19 05:05 22:46 03:31 WBC RBC Hgb Hct MCH RDW Plt Count Lymph % (Auto) [place] % (Auto) [place] # Baso # Seg Neutrophils % Seg Neuts % (Manual) Lymphocytes % (Manual) Monocytes % (Manual) Seg Neutrophils # Seg Neutrophils # Man Lymphocytes # (Manual) Monocytes # (Manual) Eosinophils # (Manual) Basophils # (Manual) PT INR APTT ABG pH 7.459 H ABG pO2 ABG HCO3 34.2 H ABG O2 Saturation ABG Base Excess 9.4 H ABG Hemoglobin 7.6 L Oxyhemoglobin 94.8 L Sodium 152 H D 147 H Potassium 2.3 L* D 2.8 L* D Chloride 107.8 H Carbon Dioxide 31 H D 33 H BUN Creatinine 0.6 L 0.6 L Glucose 148 H 177 H POC Glucose Lactic Acid Calcium Ionized Calcium Phosphorus Magnesium Total Bilirubin AST 105 H ALT 71 H Alkaline Phosphatase 155 H Ammonia Total Creatine Kinase CK-MB (CK-2) CK-MB (CK-2) Rel Index Total Protein 5.2 L D Albumin 2.9 L Urine WBC (Auto) Vancomycin Trough Salicylates Acetaminophen Plasma/Serum Alcohol Crossmatch 11/26/19 11/26/19 11/27/19 08:24 08:24 04:20 WBC 12.0 H RBC 3.00 L Hgb 8.0 L 9.3 L Hct 25.9 L 29.7 L MCH 27 L RDW 18.5 H Plt Count Lymph % (Auto) [place] % (Auto) [place] # Baso # Seg Neutrophils % Seg Neuts % (Manual) 89.0 H Lymphocytes % (Manual) 4.0 L Monocytes % (Manual) Seg Neutrophils # Seg Neutrophils # Man 10.7 H Lymphocytes # (Manual) 0.5 L Monocytes # (Manual) Eosinophils # (Manual) Basophils # (Manual) PT INR APTT ABG pH ABG pO2 ABG HCO3 ABG O2 Saturation ABG Base Excess ABG Hemoglobin Oxyhemoglobin Sodium 146 H Potassium 3.4 L D Chloride Carbon Dioxide BUN Creatinine 0.5 L Glucose 165 H POC Glucose Lactic Acid Calcium Ionized Calcium Phosphorus Magnesium Total Bilirubin AST 57 H ALT Alkaline Phosphatase 166 H Ammonia Total Creatine Kinase CK-MB (CK-2) CK-MB (CK-2) Rel Index Total Protein Albumin 2.9 L Urine WBC (Auto) Vancomycin Trough Salicylates Acetaminophen Plasma/Serum Alcohol Crossmatch 11/27/19 11/27/19 11/27/19 04:28 04:28 04:42 WBC RBC Hgb Hct MCH RDW Plt Count Lymph % (Auto) [place] % (Auto) [place] # Baso # Seg Neutrophils % Seg Neuts % (Manual) Lymphocytes % (Manual) Monocytes % (Manual) Seg Neutrophils # Seg Neutrophils # Man Lymphocytes # (Manual) Monocytes # (Manual) Eosinophils # (Manual) Basophils # (Manual) PT INR APTT ABG pH 7.470 H ABG pO2 74.0 L ABG HCO3 33.8 H ABG O2 Saturation ABG Base Excess 9.1 H ABG Hemoglobin 8.7 L Oxyhemoglobin 94.7 L Sodium 146 H Potassium 2.9 L* Chloride Carbon Dioxide BUN 25 H Creatinine Glucose 213 H POC Glucose Lactic Acid Calcium Ionized Calcium Phosphorus 1.00 L Magnesium Total Bilirubin AST ALT Alkaline Phosphatase Ammonia Total Creatine Kinase CK-MB (CK-2) CK-MB (CK-2) Rel Index Total Protein Albumin Urine WBC (Auto) Vancomycin Trough Salicylates Acetaminophen Plasma/Serum Alcohol Crossmatch 11/27/19 11/27/19 11/27/19 05:37 12:20 15:46 WBC RBC Hgb Hct MCH RDW Plt Count Lymph % (Auto) [place] % (Auto) [place] # Baso # Seg Neutrophils % Seg Neuts % (Manual) Lymphocytes % (Manual) Monocytes % (Manual) Seg Neutrophils # Seg Neutrophils # Man Lymphocytes # (Manual) Monocytes # (Manual) Eosinophils # (Manual) Basophils # (Manual) PT INR APTT ABG pH ABG pO2 ABG HCO3 ABG O2 Saturation ABG Base Excess ABG Hemoglobin Oxyhemoglobin Sodium 146 H Potassium 3.5 L D Chloride Carbon Dioxide BUN 24 H Creatinine 0.6 L Glucose 187 H POC Glucose 117 H 220 H Lactic Acid Calcium Ionized Calcium Phosphorus Magnesium Total Bilirubin AST ALT Alkaline Phosphatase Ammonia Total Creatine Kinase CK-MB (CK-2) CK-MB (CK-2) Rel Index Total Protein Albumin Urine WBC (Auto) Vancomycin Trough Salicylates Acetaminophen Plasma/Serum Alcohol Crossmatch 11/27/19 11/28/19 11/28/19 17:28 05:00 05:02 WBC RBC Hgb Hct MCH RDW Plt Count Lymph % (Auto) [place] % (Auto) [place] # Baso # Seg Neutrophils % Seg Neuts % (Manual) Lymphocytes % (Manual) Monocytes % (Manual) Seg Neutrophils # Seg Neutrophils # Man Lymphocytes # (Manual) Monocytes # (Manual) Eosinophils # (Manual) Basophils # (Manual) PT INR APTT ABG pH ABG pO2 72.4 L ABG HCO3 33.6 H ABG O2 Saturation 94.1 L ABG Base Excess 7.3 H ABG Hemoglobin Oxyhemoglobin 91.8 L Sodium 146 H Potassium 3.3 L Chloride Carbon Dioxide BUN 25 H Creatinine 0.6 L Glucose 176 H POC Glucose 198 H Lactic Acid Calcium Ionized Calcium Phosphorus Magnesium Total Bilirubin AST ALT Alkaline Phosphatase Ammonia Total Creatine Kinase CK-MB (CK-2) CK-MB (CK-2) Rel Index Total Protein Albumin Urine WBC (Auto) Vancomycin Trough Salicylates Acetaminophen Plasma/Serum Alcohol Crossmatch 11/28/19 11/28/19 11/29/19 05:02 18:55 10:43 WBC 15.2 H 19.0 H RBC 3.06 L 3.01 L Hgb 8.3 L 8.3 L Hct 27.0 L 26.4 L MCH 27 L RDW 19.0 H 19.7 H Plt Count 479 H 611 H Lymph % (Auto) [place] % (Auto) [place] # Baso # Seg Neutrophils % Seg Neuts % (Manual) 92.0 H Lymphocytes % (Manual) 2.0 L Monocytes % (Manual) Seg Neutrophils # Seg Neutrophils # Man 14.0 H Lymphocytes # (Manual) 0.3 L Monocytes # (Manual) Eosinophils # (Manual) Basophils # (Manual) PT INR APTT ABG pH ABG pO2 ABG HCO3 ABG O2 Saturation ABG Base Excess ABG Hemoglobin Oxyhemoglobin Sodium Potassium Chloride Carbon Dioxide BUN Creatinine Glucose POC Glucose 138 H Lactic Acid Calcium Ionized Calcium Phosphorus Magnesium Total Bilirubin AST ALT Alkaline Phosphatase Ammonia Total Creatine Kinase CK-MB (CK-2) CK-MB (CK-2) Rel Index Total Protein Albumin Urine WBC (Auto) Vancomycin Trough Salicylates Acetaminophen Plasma/Serum Alcohol Crossmatch 11/29/19 11/29/19 11/29/19 10:43 12:27 19:25 WBC RBC Hgb Hct MCH RDW Plt Count Lymph % (Auto) [place] % (Auto) [place] # Baso # Seg Neutrophils % Seg Neuts % (Manual) Lymphocytes % (Manual) Monocytes % (Manual) Seg Neutrophils # Seg Neutrophils # Man Lymphocytes # (Manual) Monocytes # (Manual) Eosinophils # (Manual) Basophils # (Manual) PT INR APTT ABG pH ABG pO2 ABG HCO3 ABG O2 Saturation ABG Base Excess ABG Hemoglobin Oxyhemoglobin Sodium Potassium 2.8 L* Chloride Carbon Dioxide BUN 20 H Creatinine 0.5 L Glucose 121 H POC Glucose 128 H 120 H Lactic Acid Calcium Ionized Calcium Phosphorus Magnesium Total Bilirubin AST ALT Alkaline Phosphatase Ammonia Total Creatine Kinase CK-MB (CK-2) CK-MB (CK-2) Rel Index Total Protein Albumin Urine WBC (Auto) Vancomycin Trough Salicylates Acetaminophen Plasma/Serum Alcohol Crossmatch 11/29/19 11/30/19 11/30/19 23:46 04:10 05:02 WBC RBC Hgb Hct MCH RDW Plt Count Lymph % (Auto) [place] % (Auto) [place] # Baso # Seg Neutrophils % Seg Neuts % (Manual) Lymphocytes % (Manual) Monocytes % (Manual) Seg Neutrophils # Seg Neutrophils # Man Lymphocytes # (Manual) Monocytes # (Manual) Eosinophils # (Manual) Basophils # (Manual) PT INR APTT ABG pH ABG pO2 76.3 L ABG HCO3 32.5 H ABG O2 Saturation ABG Base Excess 6.9 H ABG Hemoglobin 8.0 L Oxyhemoglobin 92.6 L Sodium Potassium Chloride Carbon Dioxide BUN Creatinine Glucose POC Glucose 116 H 128 H Lactic Acid Calcium Ionized Calcium Phosphorus Magnesium Total Bilirubin AST ALT Alkaline Phosphatase Ammonia Total Creatine Kinase CK-MB (CK-2) CK-MB (CK-2) Rel Index Total Protein Albumin Urine WBC (Auto) Vancomycin Trough Salicylates Acetaminophen Plasma/Serum Alcohol Crossmatch 11/30/19 11/30/19 11/30/19 05:25 05:25 12:59 WBC 18.4 H RBC 3.10 L Hgb 8.5 L Hct 27.5 L MCH 27 L RDW 20.9 H Plt Count 691 H Lymph % (Auto) 7.1 L [place] % (Auto) 7.7 H [place] # 1.4 H Baso # Seg Neutrophils % 83.4 H Seg Neuts % (Manual) Lymphocytes % (Manual) Monocytes % (Manual) Seg Neutrophils # 15.4 H Seg Neutrophils # Man Lymphocytes # (Manual) Monocytes # (Manual) Eosinophils # (Manual) Basophils # (Manual) PT INR APTT ABG pH ABG pO2 ABG HCO3 ABG O2 Saturation ABG Base Excess ABG Hemoglobin Oxyhemoglobin Sodium 146 H Potassium Chloride 107.2 H Carbon Dioxide BUN Creatinine 0.5 L Glucose 132 H POC Glucose 124 H Lactic Acid Calcium Ionized Calcium Phosphorus Magnesium Total Bilirubin AST 246 H ALT 274 H Alkaline Phosphatase 203 H Ammonia Total Creatine Kinase CK-MB (CK-2) CK-MB (CK-2) Rel Index Total Protein 5.4 L Albumin 2.9 L Urine WBC (Auto) Vancomycin Trough Salicylates Acetaminophen Plasma/Serum Alcohol Crossmatch 11/30/19 12/01/19 12/01/19 17:53 00:05 05:10 WBC RBC Hgb Hct MCH RDW Plt Count Lymph % (Auto) [place] % (Auto) [place] # Baso # Seg Neutrophils % Seg Neuts % (Manual) Lymphocytes % (Manual) Monocytes % (Manual) Seg Neutrophils # Seg Neutrophils # Man Lymphocytes # (Manual) Monocytes # (Manual) Eosinophils # (Manual) Basophils # (Manual) PT INR APTT ABG pH ABG pO2 ABG HCO3 ABG O2 Saturation ABG Base Excess ABG Hemoglobin Oxyhemoglobin Sodium Potassium Chloride Carbon Dioxide BUN Creatinine Glucose POC Glucose 113 H 143 H 145 H Lactic Acid Calcium Ionized Calcium Phosphorus Magnesium Total Bilirubin AST ALT Alkaline Phosphatase Ammonia Total Creatine Kinase CK-MB (CK-2) CK-MB (CK-2) Rel Index Total Protein Albumin Urine WBC (Auto) Vancomycin Trough Salicylates Acetaminophen Plasma/Serum Alcohol Crossmatch 12/01/19 12/01/19 12/01/19 05:33 08:23 08:23 WBC 22.7 H RBC 2.88 L Hgb 7.9 L Hct 25.2 L MCH 27 L RDW 21.0 H Plt Count 732 H Lymph % (Auto) [place] % (Auto) [place] # Baso # Seg Neutrophils % Seg Neuts % (Manual) 91.0 H Lymphocytes % (Manual) 3.0 L Monocytes % (Manual) Seg Neutrophils # Seg Neutrophils # Man 20.7 H Lymphocytes # (Manual) 0.7 L Monocytes # (Manual) 1.1 H Eosinophils # (Manual) Basophils # (Manual) PT INR APTT ABG pH ABG pO2 68.6 L ABG HCO3 34.1 H ABG O2 Saturation ABG Base Excess 9.0 H ABG Hemoglobin 6.5 L Oxyhemoglobin 94.7 L Sodium Potassium Chloride Carbon Dioxide BUN Creatinine 0.5 L Glucose 125 H POC Glucose Lactic Acid Calcium Ionized Calcium Phosphorus Magnesium Total Bilirubin AST ALT Alkaline Phosphatase Ammonia Total Creatine Kinase CK-MB (CK-2) CK-MB (CK-2) Rel Index Total Protein Albumin Urine WBC (Auto) Vancomycin Trough Salicylates Acetaminophen Plasma/Serum Alcohol Crossmatch 12/01/19 12/01/19 12/01/19 13:21 17:54 20:59 WBC RBC Hgb Hct MCH RDW Plt Count Lymph % (Auto) [place] % (Auto) [place] # Baso # Seg Neutrophils % Seg Neuts % (Manual) Lymphocytes % (Manual) Monocytes % (Manual) Seg Neutrophils # Seg Neutrophils # Man Lymphocytes # (Manual) Monocytes # (Manual) Eosinophils # (Manual) Basophils # (Manual) PT INR APTT ABG pH ABG pO2 78.3 L ABG HCO3 33.8 H ABG O2 Saturation 94.9 L ABG Base Excess 7.9 H ABG Hemoglobin 11.5 L Oxyhemoglobin 92.3 L Sodium Potassium Chloride Carbon Dioxide BUN Creatinine Glucose POC Glucose 111 H 115 H Lactic Acid Calcium Ionized Calcium Phosphorus Magnesium Total Bilirubin AST ALT Alkaline Phosphatase Ammonia Total Creatine Kinase CK-MB (CK-2) CK-MB (CK-2) Rel Index Total Protein Albumin Urine WBC (Auto) Vancomycin Trough Salicylates Acetaminophen Plasma/Serum Alcohol Crossmatch 12/02/19 12/03/19 12/04/19 12:55 20:00 04:26 WBC 15.2 H RBC 2.69 L Hgb 7.4 L Hct 23.6 L MCH 27 L RDW 19.9 H Plt Count 838 H Lymph % (Auto) [place] % (Auto) [place] # Baso # Seg Neutrophils % Seg Neuts % (Manual) Lymphocytes % (Manual) Monocytes % (Manual) Seg Neutrophils # Seg Neutrophils # Man Lymphocytes # (Manual) Monocytes # (Manual) Eosinophils # (Manual) Basophils # (Manual) PT INR APTT ABG pH ABG pO2 68.3 L ABG HCO3 33.5 H ABG O2 Saturation 93.5 L ABG Base Excess 8.4 H ABG Hemoglobin 7.3 L Oxyhemoglobin 90.9 L Sodium Potassium Chloride Carbon Dioxide BUN Creatinine Glucose POC Glucose 107 H Lactic Acid Calcium Ionized Calcium Phosphorus Magnesium Total Bilirubin AST ALT Alkaline Phosphatase Ammonia Total Creatine Kinase CK-MB (CK-2) CK-MB (CK-2) Rel Index Total Protein Albumin Urine WBC (Auto) Vancomycin Trough Salicylates Acetaminophen Plasma/Serum Alcohol Crossmatch 12/04/19 12/04/19 12/04/19 04:26 07:45 12:02 WBC 15.9 H RBC 2.88 L Hgb 7.9 L Hct 25.1 L MCH RDW 20.4 H Plt Count 839 H Lymph % (Auto) 11.3 L [place] % (Auto) 15.2 H [place] # 2.4 H Baso # Seg Neutrophils % 72.4 H Seg Neuts % (Manual) Lymphocytes % (Manual) Monocytes % (Manual) Seg Neutrophils # 11.5 H Seg Neutrophils # Man Lymphocytes # (Manual) Monocytes # (Manual) Eosinophils # (Manual) Basophils # (Manual) PT INR APTT ABG pH ABG pO2 ABG HCO3 ABG O2 Saturation ABG Base Excess ABG Hemoglobin Oxyhemoglobin Sodium Potassium Chloride 96.5 L Carbon Dioxide BUN 21 H Creatinine 0.6 L Glucose 107 H POC Glucose 138 H Lactic Acid Calcium Ionized Calcium Phosphorus Magnesium Total Bilirubin AST ALT Alkaline Phosphatase Ammonia Total Creatine Kinase CK-MB (CK-2) CK-MB (CK-2) Rel Index Total Protein Albumin Urine WBC (Auto) Vancomycin Trough Salicylates Acetaminophen Plasma/Serum Alcohol Crossmatch 12/04/19 12/05/19 12/05/19 18:16 11:55 18:36 WBC RBC Hgb Hct MCH RDW Plt Count Lymph % (Auto) [place] % (Auto) [place] # Baso # Seg Neutrophils % Seg Neuts % (Manual) Lymphocytes % (Manual) Monocytes % (Manual) Seg Neutrophils # Seg Neutrophils # Man Lymphocytes # (Manual) Monocytes # (Manual) Eosinophils # (Manual) Basophils # (Manual) PT INR APTT ABG pH ABG pO2 ABG HCO3 ABG O2 Saturation ABG Base Excess ABG Hemoglobin Oxyhemoglobin Sodium Potassium Chloride Carbon Dioxide BUN Creatinine Glucose POC Glucose 135 H 125 H 135 H Lactic Acid Calcium Ionized Calcium Phosphorus Magnesium Total Bilirubin AST ALT Alkaline Phosphatase Ammonia Total Creatine Kinase CK-MB (CK-2) CK-MB (CK-2) Rel Index Total Protein Albumin Urine WBC (Auto) Vancomycin Trough Salicylates Acetaminophen Plasma/Serum Alcohol Crossmatch 12/05/19 12/06/19 12/06/19 23:30 04:14 05:43 WBC RBC Hgb Hct MCH RDW Plt Count Lymph % (Auto) [place] % (Auto) [place] # Baso # Seg Neutrophils % Seg Neuts % (Manual) Lymphocytes % (Manual) Monocytes % (Manual) Seg Neutrophils # Seg Neutrophils # Man Lymphocytes # (Manual) Monocytes # (Manual) Eosinophils # (Manual) Basophils # (Manual) PT INR APTT ABG pH ABG pO2 ABG HCO3 ABG O2 Saturation ABG Base Excess ABG Hemoglobin Oxyhemoglobin Sodium Potassium 5.6 H Chloride 95.0 L Carbon Dioxide BUN 48 H Creatinine 1.3 H D Glucose POC Glucose 126 H 121 H Lactic Acid Calcium Ionized Calcium Phosphorus Magnesium Total Bilirubin AST 89 H ALT 98 H Alkaline Phosphatase 476 H Ammonia Total Creatine Kinase CK-MB (CK-2) CK-MB (CK-2) Rel Index Total Protein Albumin 2.8 L Urine WBC (Auto) Vancomycin Trough Salicylates Acetaminophen Plasma/Serum Alcohol Crossmatch 12/06/19 12/06/19 12/07/19 10:39 14:34 00:19 WBC 17.3 H RBC 2.60 L Hgb 7.1 L Hct 22.7 L MCH 27 L RDW 20.1 H Plt Count 832 H Lymph % (Auto) [place] % (Auto) [place] # Baso # Seg Neutrophils % Seg Neuts % (Manual) Lymphocytes % (Manual) Monocytes % (Manual) Seg Neutrophils # Seg Neutrophils # Man Lymphocytes # (Manual) Monocytes # (Manual) Eosinophils # (Manual) Basophils # (Manual) PT INR APTT ABG pH ABG pO2 ABG HCO3 ABG O2 Saturation ABG Base Excess ABG Hemoglobin Oxyhemoglobin Sodium Potassium Chloride Carbon Dioxide BUN Creatinine Glucose POC Glucose 128 H 136 H Lactic Acid Calcium Ionized Calcium Phosphorus Magnesium Total Bilirubin AST ALT Alkaline Phosphatase Ammonia Total Creatine Kinase CK-MB (CK-2) CK-MB (CK-2) Rel Index Total Protein Albumin Urine WBC (Auto) Vancomycin Trough Salicylates Acetaminophen Plasma/Serum Alcohol Crossmatch 12/07/19 12/07/19 12/07/19 03:44 03:44 05:53 WBC 16.2 H RBC 2.56 L Hgb 7.1 L Hct 22.3 L MCH RDW 19.4 H Plt Count 782 H Lymph % (Auto) [place] % (Auto) [place] # Baso # Seg Neutrophils % Seg Neuts % (Manual) Lymphocytes % (Manual) Monocytes % (Manual) Seg Neutrophils # Seg Neutrophils # Man Lymphocytes # (Manual) Monocytes # (Manual) Eosinophils # (Manual) Basophils # (Manual) PT INR APTT ABG pH ABG pO2 ABG HCO3 ABG O2 Saturation ABG Base Excess ABG Hemoglobin Oxyhemoglobin Sodium Potassium Chloride 95.6 L Carbon Dioxide BUN 56 H Creatinine 1.4 H Glucose 120 H POC Glucose 128 H Lactic Acid Calcium 10.3 H Ionized Calcium Phosphorus Magnesium Total Bilirubin AST ALT Alkaline Phosphatase Ammonia Total Creatine Kinase CK-MB (CK-2) CK-MB (CK-2) Rel Index Total Protein Albumin Urine WBC (Auto) Vancomycin Trough Salicylates Acetaminophen Plasma/Serum Alcohol Crossmatch 12/07/19 12/07/19 12/08/19 12:54 23:47 00:20 WBC RBC Hgb Hct MCH RDW Plt Count Lymph % (Auto) [place] % (Auto) [place] # Baso # Seg Neutrophils % Seg Neuts % (Manual) Lymphocytes % (Manual) Monocytes % (Manual) Seg Neutrophils # Seg Neutrophils # Man Lymphocytes # (Manual) Monocytes # (Manual) Eosinophils # (Manual) Basophils # (Manual) PT INR APTT ABG pH ABG pO2 ABG HCO3 ABG O2 Saturation ABG Base Excess ABG Hemoglobin Oxyhemoglobin Sodium Potassium Chloride Carbon Dioxide BUN Creatinine Glucose POC Glucose 128 H 130 H 124 H Lactic Acid Calcium Ionized Calcium Phosphorus Magnesium Total Bilirubin AST ALT Alkaline Phosphatase Ammonia Total Creatine Kinase CK-MB (CK-2) CK-MB (CK-2) Rel Index Total Protein Albumin Urine WBC (Auto) Vancomycin Trough Salicylates Acetaminophen Plasma/Serum Alcohol Crossmatch 12/08/19 12/08/19 12/08/19 06:38 12:04 18:26 WBC RBC Hgb Hct MCH RDW Plt Count Lymph % (Auto) [place] % (Auto) [place] # Baso # Seg Neutrophils % Seg Neuts % (Manual) Lymphocytes % (Manual) Monocytes % (Manual) Seg Neutrophils # Seg Neutrophils # Man Lymphocytes # (Manual) Monocytes # (Manual) Eosinophils # (Manual) Basophils # (Manual) PT INR APTT ABG pH ABG pO2 ABG HCO3 ABG O2 Saturation ABG Base Excess ABG Hemoglobin Oxyhemoglobin Sodium Potassium Chloride Carbon Dioxide BUN Creatinine Glucose POC Glucose 137 H 129 H 150 H Lactic Acid Calcium Ionized Calcium Phosphorus Magnesium Total Bilirubin AST ALT Alkaline Phosphatase Ammonia Total Creatine Kinase CK-MB (CK-2) CK-MB (CK-2) Rel Index Total Protein Albumin Urine WBC (Auto) Vancomycin Trough Salicylates Acetaminophen Plasma/Serum Alcohol Crossmatch 12/09/19 12/09/19 12/09/19 00:56 05:34 06:13 WBC RBC Hgb Hct MCH RDW Plt Count Lymph % (Auto) [place] % (Auto) [place] # Baso # Seg Neutrophils % Seg Neuts % (Manual) Lymphocytes % (Manual) Monocytes % (Manual) Seg Neutrophils # Seg Neutrophils # Man Lymphocytes # (Manual) Monocytes # (Manual) Eosinophils # (Manual) Basophils # (Manual) PT INR APTT ABG pH ABG pO2 ABG HCO3 ABG O2 Saturation ABG Base Excess ABG Hemoglobin Oxyhemoglobin Sodium 146 H Potassium Chloride Carbon Dioxide BUN 66 H Creatinine 1.9 H Glucose 116 H POC Glucose 130 H 130 H Lactic Acid Calcium Ionized Calcium Phosphorus Magnesium Total Bilirubin AST ALT Alkaline Phosphatase Ammonia Total Creatine Kinase CK-MB (CK-2) CK-MB (CK-2) Rel Index Total Protein Albumin Urine WBC (Auto) Vancomycin Trough Salicylates Acetaminophen Plasma/Serum Alcohol Crossmatch 12/09/19 12/09/19 12/10/19 11:52 17:50 00:14 WBC RBC Hgb Hct MCH RDW Plt Count Lymph % (Auto) [place] % (Auto) [place] # Baso # Seg Neutrophils % Seg Neuts % (Manual) Lymphocytes % (Manual) Monocytes % (Manual) Seg Neutrophils # Seg Neutrophils # Man Lymphocytes # (Manual) Monocytes # (Manual) Eosinophils # (Manual) Basophils # (Manual) PT INR APTT ABG pH ABG pO2 ABG HCO3 ABG O2 Saturation ABG Base Excess ABG Hemoglobin Oxyhemoglobin Sodium Potassium Chloride Carbon Dioxide BUN Creatinine Glucose POC Glucose 135 H 120 H 116 H Lactic Acid Calcium Ionized Calcium Phosphorus Magnesium Total Bilirubin AST ALT Alkaline Phosphatase Ammonia Total Creatine Kinase CK-MB (CK-2) CK-MB (CK-2) Rel Index Total Protein Albumin Urine WBC (Auto) Vancomycin Trough Salicylates Acetaminophen Plasma/Serum Alcohol Crossmatch 12/10/19 12/10/19 12/10/19 05:38 11:38 17:34 WBC RBC Hgb Hct MCH RDW Plt Count Lymph % (Auto) [place] % (Auto) [place] # Baso # Seg Neutrophils % Seg Neuts % (Manual) Lymphocytes % (Manual) Monocytes % (Manual) Seg Neutrophils # Seg Neutrophils # Man Lymphocytes # (Manual) Monocytes # (Manual) Eosinophils # (Manual) Basophils # (Manual) PT INR APTT ABG pH ABG pO2 ABG HCO3 ABG O2 Saturation ABG Base Excess ABG Hemoglobin Oxyhemoglobin Sodium Potassium Chloride Carbon Dioxide BUN Creatinine Glucose POC Glucose 115 H 112 H 130 H Lactic Acid Calcium Ionized Calcium Phosphorus Magnesium Total Bilirubin AST ALT Alkaline Phosphatase Ammonia Total Creatine Kinase CK-MB (CK-2) CK-MB (CK-2) Rel Index Total Protein Albumin Urine WBC (Auto) Vancomycin Trough Salicylates Acetaminophen Plasma/Serum Alcohol Crossmatch 12/11/19 12/11/19 12/11/19 00:20 05:31 12:22 WBC RBC Hgb Hct MCH RDW Plt Count Lymph % (Auto) [place] % (Auto) [place] # Baso # Seg Neutrophils % Seg Neuts % (Manual) Lymphocytes % (Manual) Monocytes % (Manual) Seg Neutrophils # Seg Neutrophils # Man Lymphocytes # (Manual) Monocytes # (Manual) Eosinophils # (Manual) Basophils # (Manual) PT INR APTT ABG pH ABG pO2 ABG HCO3 ABG O2 Saturation ABG Base Excess ABG Hemoglobin Oxyhemoglobin Sodium Potassium Chloride Carbon Dioxide BUN Creatinine Glucose POC Glucose 124 H 132 H 128 H Lactic Acid Calcium Ionized Calcium Phosphorus Magnesium Total Bilirubin AST ALT Alkaline Phosphatase Ammonia Total Creatine Kinase CK-MB (CK-2) CK-MB (CK-2) Rel Index Total Protein Albumin Urine WBC (Auto) Vancomycin Trough Salicylates Acetaminophen Plasma/Serum Alcohol Crossmatch 12/11/19 12/11/19 12/12/19 18:04 23:42 03:51 WBC RBC Hgb Hct MCH RDW Plt Count Lymph % (Auto) [place] % (Auto) [place] # Baso # Seg Neutrophils % Seg Neuts % (Manual) Lymphocytes % (Manual) Monocytes % (Manual) Seg Neutrophils # Seg Neutrophils # Man Lymphocytes # (Manual) Monocytes # (Manual) Eosinophils # (Manual) Basophils # (Manual) PT INR APTT ABG pH ABG pO2 ABG HCO3 ABG O2 Saturation ABG Base Excess ABG Hemoglobin Oxyhemoglobin Sodium 149 H Potassium Chloride Carbon Dioxide 20 L D BUN 77 H Creatinine 2.8 H Glucose POC Glucose 133 H 154 H Lactic Acid Calcium Ionized Calcium Phosphorus Magnesium Total Bilirubin AST ALT Alkaline Phosphatase Ammonia Total Creatine Kinase CK-MB (CK-2) CK-MB (CK-2) Rel Index Total Protein Albumin Urine WBC (Auto) Vancomycin Trough Salicylates Acetaminophen Plasma/Serum Alcohol Crossmatch 12/12/19 12/12/19 12/12/19 05:18 05:26 10:30 WBC 18.0 H RBC 2.51 L Hgb 6.8 L Hct 22.0 L MCH 27 L RDW 19.9 H Plt Count 582 H Lymph % (Auto) [place] % (Auto) [place] # Baso # Seg Neutrophils % Seg Neuts % (Manual) Lymphocytes % (Manual) Monocytes % (Manual) Seg Neutrophils # Seg Neutrophils # Man Lymphocytes # (Manual) Monocytes # (Manual) Eosinophils # (Manual) Basophils # (Manual) PT INR APTT ABG pH ABG pO2 ABG HCO3 ABG O2 Saturation ABG Base Excess ABG Hemoglobin Oxyhemoglobin Sodium Potassium Chloride Carbon Dioxide BUN Creatinine Glucose POC Glucose 135 H Lactic Acid Calcium Ionized Calcium Phosphorus Magnesium Total Bilirubin AST ALT Alkaline Phosphatase Ammonia Total Creatine Kinase CK-MB (CK-2) CK-MB (CK-2) Rel Index Total Protein Albumin Urine WBC (Auto) Vancomycin Trough Salicylates Acetaminophen Plasma/Serum Alcohol Crossmatch See Detail 12/12/19 12/12/19 12/12/19 11:44 18:10 23:21 WBC RBC Hgb Hct MCH RDW Plt Count Lymph % (Auto) [place] % (Auto) [place] # Baso # Seg Neutrophils % Seg Neuts % (Manual) Lymphocytes % (Manual) Monocytes % (Manual) Seg Neutrophils # Seg Neutrophils # Man Lymphocytes # (Manual) Monocytes # (Manual) Eosinophils # (Manual) Basophils # (Manual) PT INR APTT ABG pH ABG pO2 ABG HCO3 ABG O2 Saturation ABG Base Excess ABG Hemoglobin Oxyhemoglobin Sodium Potassium Chloride Carbon Dioxide BUN Creatinine Glucose POC Glucose 108 H 107 H 126 H Lactic Acid Calcium Ionized Calcium Phosphorus Magnesium Total Bilirubin AST ALT Alkaline Phosphatase Ammonia Total Creatine Kinase CK-MB (CK-2) CK-MB (CK-2) Rel Index Total Protein Albumin Urine WBC (Auto) Vancomycin Trough Salicylates Acetaminophen Plasma/Serum Alcohol Crossmatch 12/13/19 12/13/19 12/13/19 05:41 07:48 07:48 WBC 38.3 H RBC 2.37 L Hgb 6.3 L Hct 20.9 L MCH 27 L RDW 20.2 H Plt Count 546 H Lymph % (Auto) [place] % (Auto) [place] # Baso # Seg Neutrophils % Seg Neuts % (Manual) 93.0 H Lymphocytes % (Manual) 1.0 L Monocytes % (Manual) Seg Neutrophils # Seg Neutrophils # Man 35.6 H Lymphocytes # (Manual) 0.4 L Monocytes # (Manual) Eosinophils # (Manual) Basophils # (Manual) 0.4 H PT INR APTT ABG pH ABG pO2 ABG HCO3 ABG O2 Saturation ABG Base Excess ABG Hemoglobin Oxyhemoglobin Sodium 152 H Potassium 3.1 L D Chloride 111.9 H Carbon Dioxide 21 L BUN 53 H Creatinine 1.9 H Glucose 141 H POC Glucose 128 H Lactic Acid Calcium Ionized Calcium Phosphorus Magnesium Total Bilirubin AST ALT Alkaline Phosphatase 316 H Ammonia Total Creatine Kinase CK-MB (CK-2) CK-MB (CK-2) Rel Index Total Protein Albumin 2.4 L Urine WBC (Auto) Vancomycin Trough Salicylates Acetaminophen Plasma/Serum Alcohol Crossmatch 12/13/19 12/13/19 12/14/19 18:17 23:19 05:36 WBC RBC Hgb Hct MCH RDW Plt Count Lymph % (Auto) [place] % (Auto) [place] # Baso # Seg Neutrophils % Seg Neuts % (Manual) Lymphocytes % (Manual) Monocytes % (Manual) Seg Neutrophils # Seg Neutrophils # Man Lymphocytes # (Manual) Monocytes # (Manual) Eosinophils # (Manual) Basophils # (Manual) PT INR APTT ABG pH ABG pO2 ABG HCO3 ABG O2 Saturation ABG Base Excess ABG Hemoglobin Oxyhemoglobin Sodium Potassium Chloride Carbon Dioxide BUN Creatinine Glucose POC Glucose 141 H 158 H 182 H Lactic Acid Calcium Ionized Calcium Phosphorus Magnesium Total Bilirubin AST ALT Alkaline Phosphatase Ammonia Total Creatine Kinase CK-MB (CK-2) CK-MB (CK-2) Rel Index Total Protein Albumin Urine WBC (Auto) Vancomycin Trough Salicylates Acetaminophen Plasma/Serum Alcohol Crossmatch 12/14/19 12/14/19 12/14/19 08:48 08:48 10:31 WBC 33.3 H RBC 2.70 L Hgb 7.9 L 8.0 L Hct 25.3 L 24.0 L MCH RDW 19.2 H Plt Count 476 H Lymph % (Auto) [place] % (Auto) [place] # Baso # Seg Neutrophils % Seg Neuts % (Manual) Lymphocytes % (Manual) Monocytes % (Manual) Seg Neutrophils # Seg Neutrophils # Man Lymphocytes # (Manual) Monocytes # (Manual) Eosinophils # (Manual) Basophils # (Manual) PT INR APTT ABG pH ABG pO2 ABG HCO3 ABG O2 Saturation ABG Base Excess ABG Hemoglobin Oxyhemoglobin Sodium 153 H Potassium 2.5 L* Chloride 114.9 H Carbon Dioxide 20 L BUN 38 H Creatinine 1.4 H Glucose 177 H POC Glucose Lactic Acid Calcium Ionized Calcium Phosphorus Magnesium Total Bilirubin AST ALT Alkaline Phosphatase Ammonia Total Creatine Kinase CK-MB (CK-2) CK-MB (CK-2) Rel Index Total Protein Albumin Urine WBC (Auto) Vancomycin Trough Salicylates Acetaminophen Plasma/Serum Alcohol Crossmatch 12/14/19 12/14/19 12/14/19 12:57 16:15 17:50 WBC RBC Hgb Hct MCH RDW Plt Count Lymph % (Auto) [place] % (Auto) [place] # Baso # Seg Neutrophils % Seg Neuts % (Manual) Lymphocytes % (Manual) Monocytes % (Manual) Seg Neutrophils # Seg Neutrophils # Man Lymphocytes # (Manual) Monocytes # (Manual) Eosinophils # (Manual) Basophils # (Manual) PT INR APTT ABG pH ABG pO2 73.6 L ABG HCO3 ABG O2 Saturation ABG Base Excess ABG Hemoglobin 7.6 L Oxyhemoglobin 94.0 L Sodium Potassium Chloride Carbon Dioxide BUN Creatinine Glucose POC Glucose 174 H 150 H Lactic Acid Calcium Ionized Calcium Phosphorus Magnesium Total Bilirubin AST ALT Alkaline Phosphatase Ammonia Total Creatine Kinase CK-MB (CK-2) CK-MB (CK-2) Rel Index Total Protein Albumin Urine WBC (Auto) Vancomycin Trough Salicylates Acetaminophen Plasma/Serum Alcohol Crossmatch 12/15/19 12/15/19 12/15/19 00:28 05:27 07:23 WBC 30.0 H RBC 3.11 L Hgb 8.6 L Hct 27.7 L MCH RDW 20.0 H Plt Count 473 H Lymph % (Auto) [place] % (Auto) [place] # Baso # Seg Neutrophils % Seg Neuts % (Manual) Lymphocytes % (Manual) Monocytes % (Manual) Seg Neutrophils # Seg Neutrophils # Man Lymphocytes # (Manual) Monocytes # (Manual) Eosinophils # (Manual) Basophils # (Manual) PT INR APTT ABG pH ABG pO2 ABG HCO3 ABG O2 Saturation ABG Base Excess ABG Hemoglobin Oxyhemoglobin Sodium Potassium Chloride Carbon Dioxide BUN Creatinine Glucose POC Glucose 167 H 148 H Lactic Acid Calcium Ionized Calcium Phosphorus Magnesium Total Bilirubin AST ALT Alkaline Phosphatase Ammonia Total Creatine Kinase CK-MB (CK-2) CK-MB (CK-2) Rel Index Total Protein Albumin Urine WBC (Auto) Vancomycin Trough Salicylates Acetaminophen Plasma/Serum Alcohol Crossmatch 12/15/19 12/15/19 12/15/19 07:23 12:21 17:41 WBC RBC Hgb Hct MCH RDW Plt Count Lymph % (Auto) [place] % (Auto) [place] # Baso # Seg Neutrophils % Seg Neuts % (Manual) Lymphocytes % (Manual) Monocytes % (Manual) Seg Neutrophils # Seg Neutrophils # Man Lymphocytes # (Manual) Monocytes # (Manual) Eosinophils # (Manual) Basophils # (Manual) PT INR APTT ABG pH ABG pO2 ABG HCO3 ABG O2 Saturation ABG Base Excess ABG Hemoglobin Oxyhemoglobin Sodium 147 H Potassium 3.5 L D Chloride 111.2 H Carbon Dioxide 19 L BUN 29 H Creatinine Glucose 126 H POC Glucose 154 H 144 H Lactic Acid Calcium Ionized Calcium Phosphorus Magnesium Total Bilirubin AST ALT Alkaline Phosphatase Ammonia Total Creatine Kinase CK-MB (CK-2) CK-MB (CK-2) Rel Index Total Protein Albumin Urine WBC (Auto) Vancomycin Trough Salicylates Acetaminophen Plasma/Serum Alcohol Crossmatch 12/16/19 12/16/19 12/16/19 00:22 05:30 05:44 WBC 30.8 H RBC 2.58 L Hgb 7.1 L Hct 22.7 L MCH RDW 19.6 H Plt Count 451 H Lymph % (Auto) [place] % (Auto) [place] # Baso # Seg Neutrophils % Seg Neuts % (Manual) Lymphocytes % (Manual) Monocytes % (Manual) Seg Neutrophils # Seg Neutrophils # Man Lymphocytes # (Manual) Monocytes # (Manual) Eosinophils # (Manual) Basophils # (Manual) PT INR APTT ABG pH ABG pO2 ABG HCO3 ABG O2 Saturation ABG Base Excess ABG Hemoglobin Oxyhemoglobin Sodium Potassium Chloride Carbon Dioxide BUN Creatinine Glucose POC Glucose 139 H 126 H Lactic Acid Calcium Ionized Calcium Phosphorus Magnesium Total Bilirubin AST ALT Alkaline Phosphatase Ammonia Total Creatine Kinase CK-MB (CK-2) CK-MB (CK-2) Rel Index Total Protein Albumin Urine WBC (Auto) Vancomycin Trough Salicylates Acetaminophen Plasma/Serum Alcohol Crossmatch 12/16/19 12/16/19 12/16/19 05:44 11:48 17:37 WBC RBC Hgb Hct MCH RDW Plt Count Lymph % (Auto) [place] % (Auto) [place] # Baso # Seg Neutrophils % Seg Neuts % (Manual) Lymphocytes % (Manual) Monocytes % (Manual) Seg Neutrophils # Seg Neutrophils # Man Lymphocytes # (Manual) Monocytes # (Manual) Eosinophils # (Manual) Basophils # (Manual) PT INR APTT ABG pH ABG pO2 ABG HCO3 ABG O2 Saturation ABG Base Excess ABG Hemoglobin Oxyhemoglobin Sodium Potassium 3.4 L Chloride 109.2 H Carbon Dioxide 19 L BUN 27 H Creatinine Glucose 124 H POC Glucose 125 H 148 H Lactic Acid Calcium Ionized Calcium Phosphorus Magnesium Total Bilirubin AST ALT Alkaline Phosphatase Ammonia Total Creatine Kinase CK-MB (CK-2) CK-MB (CK-2) Rel Index Total Protein Albumin Urine WBC (Auto) Vancomycin Trough Salicylates Acetaminophen Plasma/Serum Alcohol Crossmatch 12/16/19 12/17/19 12/17/19 23:43 05:28 12:47 WBC RBC Hgb Hct MCH RDW Plt Count Lymph % (Auto) [place] % (Auto) [place] # Baso # Seg Neutrophils % Seg Neuts % (Manual) Lymphocytes % (Manual) Monocytes % (Manual) Seg Neutrophils # Seg Neutrophils # Man Lymphocytes # (Manual) Monocytes # (Manual) Eosinophils # (Manual) Basophils # (Manual) PT INR APTT ABG pH ABG pO2 ABG HCO3 ABG O2 Saturation ABG Base Excess ABG Hemoglobin Oxyhemoglobin Sodium Potassium Chloride Carbon Dioxide BUN Creatinine Glucose POC Glucose 142 H 140 H 125 H Lactic Acid Calcium Ionized Calcium Phosphorus Magnesium Total Bilirubin AST ALT Alkaline Phosphatase Ammonia Total Creatine Kinase CK-MB (CK-2) CK-MB (CK-2) Rel Index Total Protein Albumin Urine WBC (Auto) Vancomycin Trough Salicylates Acetaminophen Plasma/Serum Alcohol Crossmatch 12/17/19 12/17/19 12/17/19 17:05 18:00 Unknown WBC RBC Hgb Hct MCH RDW Plt Count Lymph % (Auto) [place] % (Auto) [place] # Baso # Seg Neutrophils % Seg Neuts % (Manual) Lymphocytes % (Manual) Monocytes % (Manual) Seg Neutrophils # Seg Neutrophils # Man Lymphocytes # (Manual) Monocytes # (Manual) Eosinophils # (Manual) Basophils # (Manual) PT INR APTT ABG pH ABG pO2 68.1 L ABG HCO3 ABG O2 Saturation 93.7 L ABG Base Excess ABG Hemoglobin 5.0 L Oxyhemoglobin 91.7 L Sodium Potassium Chloride Carbon Dioxide BUN Creatinine Glucose POC Glucose 140 H Lactic Acid Calcium Ionized Calcium Phosphorus Magnesium Total Bilirubin AST ALT Alkaline Phosphatase Ammonia Total Creatine Kinase CK-MB (CK-2) CK-MB (CK-2) Rel Index Total Protein Albumin Urine WBC (Auto) Vancomycin Trough Salicylates Acetaminophen Plasma/Serum Alcohol Crossmatch 12/18/19 12/18/19 12/18/19 00:16 04:53 04:53 WBC 28.6 H RBC 2.27 L Hgb 6.3 L Hct 19.5 L* MCH RDW 20.0 H Plt Count 497 H Lymph % (Auto) [place] % (Auto) [place] # Baso # Seg Neutrophils % Seg Neuts % (Manual) Lymphocytes % (Manual) Monocytes % (Manual) Seg Neutrophils # Seg Neutrophils # Man Lymphocytes # (Manual) Monocytes # (Manual) Eosinophils # (Manual) Basophils # (Manual) PT INR APTT ABG pH ABG pO2 ABG HCO3 ABG O2 Saturation ABG Base Excess ABG Hemoglobin Oxyhemoglobin Sodium Potassium Chloride 107.9 H Carbon Dioxide 20 L BUN 27 H Creatinine 0.6 L Glucose 116 H POC Glucose 123 H Lactic Acid Calcium Ionized Calcium Phosphorus Magnesium Total Bilirubin AST ALT Alkaline Phosphatase Ammonia Total Creatine Kinase CK-MB (CK-2) CK-MB (CK-2) Rel Index Total Protein Albumin Urine WBC (Auto) Vancomycin Trough Salicylates Acetaminophen Plasma/Serum Alcohol Crossmatch 12/18/19 12/18/19 12/18/19 06:38 11:22 12:08 WBC RBC Hgb Hct MCH RDW Plt Count Lymph % (Auto) [place] % (Auto) [place] # Baso # Seg Neutrophils % Seg Neuts % (Manual) Lymphocytes % (Manual) Monocytes % (Manual) Seg Neutrophils # Seg Neutrophils # Man Lymphocytes # (Manual) Monocytes # (Manual) Eosinophils # (Manual) Basophils # (Manual) PT INR APTT ABG pH ABG pO2 ABG HCO3 ABG O2 Saturation ABG Base Excess ABG Hemoglobin Oxyhemoglobin Sodium Potassium Chloride Carbon Dioxide BUN Creatinine Glucose POC Glucose 120 H 127 H Lactic Acid Calcium Ionized Calcium Phosphorus Magnesium Total Bilirubin AST ALT Alkaline Phosphatase Ammonia Total Creatine Kinase CK-MB (CK-2) CK-MB (CK-2) Rel Index Total Protein Albumin Urine WBC (Auto) Vancomycin Trough Salicylates Acetaminophen Plasma/Serum Alcohol Crossmatch See Detail 12/18/19 12/18/19 12/18/19 14:05 17:49 23:53 WBC RBC Hgb Hct MCH RDW Plt Count Lymph % (Auto) [place] % (Auto) [place] # Baso # Seg Neutrophils % Seg Neuts % (Manual) Lymphocytes % (Manual) Monocytes % (Manual) Seg Neutrophils # Seg Neutrophils # Man Lymphocytes # (Manual) Monocytes # (Manual) Eosinophils # (Manual) Basophils # (Manual) PT INR APTT ABG pH 7.267 L ABG pO2 69.8 L ABG HCO3 ABG O2 Saturation 88.4 L ABG Base Excess ABG Hemoglobin 7.1 L Oxyhemoglobin 86.4 L Sodium Potassium Chloride Carbon Dioxide BUN Creatinine Glucose POC Glucose 157 H 128 H Lactic Acid Calcium Ionized Calcium Phosphorus Magnesium Total Bilirubin AST ALT Alkaline Phosphatase Ammonia Total Creatine Kinase CK-MB (CK-2) CK-MB (CK-2) Rel Index Total Protein Albumin Urine WBC (Auto) Vancomycin Trough Salicylates Acetaminophen Plasma/Serum Alcohol Crossmatch 12/19/19 12/19/19 12/19/19 03:37 03:37 05:25 WBC 31.3 H RBC 2.60 L Hgb 7.6 L Hct 23.0 L MCH RDW 19.4 H Plt Count 530 H Lymph % (Auto) [place] % (Auto) [place] # Baso # Seg Neutrophils % Seg Neuts % (Manual) Lymphocytes % (Manual) Monocytes % (Manual) Seg Neutrophils # Seg Neutrophils # Man Lymphocytes # (Manual) Monocytes # (Manual) Eosinophils # (Manual) Basophils # (Manual) PT INR APTT ABG pH ABG pO2 ABG HCO3 ABG O2 Saturation ABG Base Excess ABG Hemoglobin Oxyhemoglobin Sodium Potassium Chloride Carbon Dioxide 18 L BUN 36 H Creatinine Glucose 111 H POC Glucose 123 H Lactic Acid Calcium Ionized Calcium Phosphorus Magnesium Total Bilirubin AST ALT Alkaline Phosphatase Ammonia Total Creatine Kinase CK-MB (CK-2) CK-MB (CK-2) Rel Index Total Protein Albumin Urine WBC (Auto) Vancomycin Trough Salicylates Acetaminophen Plasma/Serum Alcohol Crossmatch 12/19/19 12/19/19 12/20/19 12:59 18:33 00:00 WBC RBC Hgb Hct MCH RDW Plt Count Lymph % (Auto) [place] % (Auto) [place] # Baso # Seg Neutrophils % Seg Neuts % (Manual) Lymphocytes % (Manual) Monocytes % (Manual) Seg Neutrophils # Seg Neutrophils # Man Lymphocytes # (Manual) Monocytes # (Manual) Eosinophils # (Manual) Basophils # (Manual) PT INR APTT ABG pH ABG pO2 ABG HCO3 ABG O2 Saturation ABG Base Excess ABG Hemoglobin Oxyhemoglobin Sodium Potassium Chloride Carbon Dioxide BUN Creatinine Glucose POC Glucose 130 H 118 H 135 H Lactic Acid Calcium Ionized Calcium Phosphorus Magnesium Total Bilirubin AST ALT Alkaline Phosphatase Ammonia Total Creatine Kinase CK-MB (CK-2) CK-MB (CK-2) Rel Index Total Protein Albumin Urine WBC (Auto) Vancomycin Trough Salicylates Acetaminophen Plasma/Serum Alcohol Crossmatch 12/20/19 12/20/19 12/20/19 05:46 12:31 18:07 WBC RBC Hgb Hct MCH RDW Plt Count Lymph % (Auto) [place] % (Auto) [place] # Baso # Seg Neutrophils % Seg Neuts % (Manual) Lymphocytes % (Manual) Monocytes % (Manual) Seg Neutrophils # Seg Neutrophils # Man Lymphocytes # (Manual) Monocytes # (Manual) Eosinophils # (Manual) Basophils # (Manual) PT INR APTT ABG pH ABG pO2 ABG HCO3 ABG O2 Saturation ABG Base Excess ABG Hemoglobin Oxyhemoglobin Sodium Potassium Chloride Carbon Dioxide BUN Creatinine Glucose POC Glucose 131 H 128 H 134 H Lactic Acid Calcium Ionized Calcium Phosphorus Magnesium Total Bilirubin AST ALT Alkaline Phosphatase Ammonia Total Creatine Kinase CK-MB (CK-2) CK-MB (CK-2) Rel Index Total Protein Albumin Urine WBC (Auto) Vancomycin Trough Salicylates Acetaminophen Plasma/Serum Alcohol Crossmatch 12/21/19 12/21/19 12/21/19 03:28 03:28 07:21 WBC 29.4 H RBC 2.30 L Hgb 6.8 L Hct 20.2 L MCH RDW 20.2 H Plt Count 746 H Lymph % (Auto) [place] % (Auto) [place] # Baso # Seg Neutrophils % Seg Neuts % (Manual) 85.0 H Lymphocytes % (Manual) 8.0 L Monocytes % (Manual) Seg Neutrophils # Seg Neutrophils # Man 25.0 H Lymphocytes # (Manual) Monocytes # (Manual) 1.5 H Eosinophils # (Manual) 0.6 H Basophils # (Manual) PT INR APTT ABG pH ABG pO2 ABG HCO3 ABG O2 Saturation ABG Base Excess ABG Hemoglobin Oxyhemoglobin Sodium Potassium Chloride Carbon Dioxide 17 L BUN 57 H Creatinine 1.4 H D Glucose POC Glucose 124 H Lactic Acid Calcium Ionized Calcium Phosphorus Magnesium Total Bilirubin AST ALT Alkaline Phosphatase Ammonia Total Creatine Kinase CK-MB (CK-2) CK-MB (CK-2) Rel Index Total Protein Albumin Urine WBC (Auto) Vancomycin Trough Salicylates Acetaminophen Plasma/Serum Alcohol Crossmatch 12/21/19 12/21/19 12/21/19 08:56 12:06 14:53 WBC RBC Hgb 7.2 L Hct 22.9 L MCH RDW Plt Count Lymph % (Auto) [place] % (Auto) [place] # Baso # Seg Neutrophils % Seg Neuts % (Manual) Lymphocytes % (Manual) Monocytes % (Manual) Seg Neutrophils # Seg Neutrophils # Man Lymphocytes # (Manual) Monocytes # (Manual) Eosinophils # (Manual) Basophils # (Manual) PT INR APTT ABG pH ABG pO2 ABG HCO3 ABG O2 Saturation ABG Base Excess ABG Hemoglobin Oxyhemoglobin Sodium Potassium Chloride Carbon Dioxide BUN Creatinine Glucose POC Glucose 116 H Lactic Acid Calcium Ionized Calcium Phosphorus Magnesium Total Bilirubin AST ALT Alkaline Phosphatase Ammonia Total Creatine Kinase CK-MB (CK-2) CK-MB (CK-2) Rel Index Total Protein Albumin Urine WBC (Auto) Vancomycin Trough 33.8 H Salicylates Acetaminophen Plasma/Serum Alcohol Crossmatch 12/21/19 12/21/19 12/21/19 14:54 17:27 23:49 WBC RBC Hgb Hct MCH RDW Plt Count Lymph % (Auto) [place] % (Auto) [place] # Baso # Seg Neutrophils % Seg Neuts % (Manual) Lymphocytes % (Manual) Monocytes % (Manual) Seg Neutrophils # Seg Neutrophils # Man Lymphocytes # (Manual) Monocytes # (Manual) Eosinophils # (Manual) Basophils # (Manual) PT INR APTT ABG pH ABG pO2 ABG HCO3 ABG O2 Saturation ABG Base Excess ABG Hemoglobin Oxyhemoglobin Sodium Potassium Chloride Carbon Dioxide BUN Creatinine Glucose POC Glucose 145 H 127 H Lactic Acid Calcium Ionized Calcium Phosphorus Magnesium Total Bilirubin AST ALT Alkaline Phosphatase Ammonia Total Creatine Kinase CK-MB (CK-2) CK-MB (CK-2) Rel Index Total Protein Albumin Urine WBC (Auto) Vancomycin Trough Salicylates Acetaminophen Plasma/Serum Alcohol Crossmatch See Detail 12/22/19 12/22/19 12/22/19 04:43 05:56 08:40 WBC RBC Hgb Hct MCH RDW Plt Count Lymph % (Auto) [place] % (Auto) [place] # Baso # Seg Neutrophils % Seg Neuts % (Manual) Lymphocytes % (Manual) Monocytes % (Manual) Seg Neutrophils # Seg Neutrophils # Man Lymphocytes # (Manual) Monocytes # (Manual) Eosinophils # (Manual) Basophils # (Manual) PT INR APTT ABG pH ABG pO2 75.6 L ABG HCO3 ABG O2 Saturation ABG Base Excess -2.6 L ABG Hemoglobin 6.8 L Oxyhemoglobin 94.6 L Sodium Potassium Chloride Carbon Dioxide 17 L BUN 60 H Creatinine 1.4 H Glucose 126 H POC Glucose 153 H Lactic Acid Calcium Ionized Calcium Phosphorus Magnesium Total Bilirubin AST ALT Alkaline Phosphatase Ammonia Total Creatine Kinase CK-MB (CK-2) CK-MB (CK-2) Rel Index Total Protein Albumin Urine WBC (Auto) Vancomycin Trough Salicylates Acetaminophen Plasma/Serum Alcohol Crossmatch 12/22/19 12/22/19 12/23/19 12:07 17:49 04:30 WBC 22.4 H RBC 2.68 L Hgb 7.6 L Hct 22.9 L MCH RDW 19.9 H Plt Count 998 H Lymph % (Auto) [place] % (Auto) [place] # Baso # Seg Neutrophils % Seg Neuts % (Manual) 88.0 H Lymphocytes % (Manual) 2.0 L Monocytes % (Manual) 9.0 H Seg Neutrophils # Seg Neutrophils # Man 19.7 H Lymphocytes # (Manual) 0.4 L Monocytes # (Manual) 2.0 H Eosinophils # (Manual) Basophils # (Manual) PT INR APTT ABG pH ABG pO2 ABG HCO3 ABG O2 Saturation ABG Base Excess ABG Hemoglobin Oxyhemoglobin Sodium Potassium Chloride Carbon Dioxide BUN Creatinine Glucose POC Glucose 140 H 116 H Lactic Acid Calcium Ionized Calcium Phosphorus Magnesium Total Bilirubin AST ALT Alkaline Phosphatase Ammonia Total Creatine Kinase CK-MB (CK-2) CK-MB (CK-2) Rel Index Total Protein Albumin Urine WBC (Auto) Vancomycin Trough Salicylates Acetaminophen Plasma/Serum Alcohol Crossmatch 12/23/19 12/23/19 12/23/19 04:30 12:00 18:06 WBC RBC Hgb Hct MCH RDW Plt Count Lymph % (Auto) [place] % (Auto) [place] # Baso # Seg Neutrophils % Seg Neuts % (Manual) Lymphocytes % (Manual) Monocytes % (Manual) Seg Neutrophils # Seg Neutrophils # Man Lymphocytes # (Manual) Monocytes # (Manual) Eosinophils # (Manual) Basophils # (Manual) PT INR APTT ABG pH ABG pO2 ABG HCO3 ABG O2 Saturation ABG Base Excess ABG Hemoglobin Oxyhemoglobin Sodium Potassium 5.2 H Chloride Carbon Dioxide 21 L BUN 69 H Creatinine 1.5 H Glucose 117 H POC Glucose 128 H 138 H Lactic Acid Calcium Ionized Calcium Phosphorus Magnesium Total Bilirubin AST ALT Alkaline Phosphatase Ammonia Total Creatine Kinase CK-MB (CK-2) CK-MB (CK-2) Rel Index Total Protein Albumin Urine WBC (Auto) Vancomycin Trough Salicylates Acetaminophen Plasma/Serum Alcohol Crossmatch 12/23/19 12/24/19 12/24/19 23:46 04:31 05:08 WBC RBC Hgb Hct MCH RDW Plt Count Lymph % (Auto) [place] % (Auto) [place] # Baso # Seg Neutrophils % Seg Neuts % (Manual) Lymphocytes % (Manual) Monocytes % (Manual) Seg Neutrophils # Seg Neutrophils # Man Lymphocytes # (Manual) Monocytes # (Manual) Eosinophils # (Manual) Basophils # (Manual) PT INR APTT ABG pH ABG pO2 ABG HCO3 ABG O2 Saturation ABG Base Excess ABG Hemoglobin Oxyhemoglobin Sodium Potassium 5.3 H Chloride 107.6 H Carbon Dioxide 20 L BUN 72 H Creatinine 1.6 H Glucose 120 H POC Glucose 120 H 140 H Lactic Acid Calcium Ionized Calcium Phosphorus Magnesium Total Bilirubin AST ALT Alkaline Phosphatase Ammonia Total Creatine Kinase CK-MB (CK-2) CK-MB (CK-2) Rel Index Total Protein Albumin Urine WBC (Auto) Vancomycin Trough Salicylates Acetaminophen Plasma/Serum Alcohol Crossmatch 12/24/19 12/24/19 12/25/19 11:58 17:49 03:47 WBC 36.2 H RBC 2.92 L Hgb 8.4 L Hct 26.1 L MCH RDW 20.2 H Plt Count 942 H Lymph % (Auto) [place] % (Auto) [place] # Baso # Seg Neutrophils % Seg Neuts % (Manual) 97.5 H Lymphocytes % (Manual) 1.0 L Monocytes % (Manual) Seg Neutrophils # Seg Neutrophils # Man 35.3 H Lymphocytes # (Manual) 0.4 L Monocytes # (Manual) Eosinophils # (Manual) Basophils # (Manual) PT INR APTT ABG pH ABG pO2 ABG HCO3 ABG O2 Saturation ABG Base Excess ABG Hemoglobin Oxyhemoglobin Sodium Potassium Chloride Carbon Dioxide BUN Creatinine Glucose POC Glucose 146 H 131 H Lactic Acid Calcium Ionized Calcium Phosphorus Magnesium Total Bilirubin AST ALT Alkaline Phosphatase Ammonia Total Creatine Kinase CK-MB (CK-2) CK-MB (CK-2) Rel Index Total Protein Albumin Urine WBC (Auto) Vancomycin Trough Salicylates Acetaminophen Plasma/Serum Alcohol Crossmatch 12/25/19 12/25/19 12/25/19 03:47 05:30 12:23 WBC RBC Hgb Hct MCH RDW Plt Count Lymph % (Auto) [place] % (Auto) [place] # Baso # Seg Neutrophils % Seg Neuts % (Manual) Lymphocytes % (Manual) Monocytes % (Manual) Seg Neutrophils # Seg Neutrophils # Man Lymphocytes # (Manual) Monocytes # (Manual) Eosinophils # (Manual) Basophils # (Manual) PT INR APTT ABG pH ABG pO2 ABG HCO3 ABG O2 Saturation ABG Base Excess ABG Hemoglobin Oxyhemoglobin Sodium Potassium Chloride Carbon Dioxide 15 L BUN 70 H Creatinine 1.7 H Glucose 153 H POC Glucose 169 H 135 H Lactic Acid Calcium Ionized Calcium Phosphorus Magnesium Total Bilirubin AST ALT Alkaline Phosphatase Ammonia Total Creatine Kinase CK-MB (CK-2) CK-MB (CK-2) Rel Index Total Protein Albumin Urine WBC (Auto) Vancomycin Trough Salicylates Acetaminophen Plasma/Serum Alcohol Crossmatch 12/25/19 12/25/19 12/26/19 17:37 23:29 09:47 WBC 22.1 H RBC 2.83 L Hgb 7.9 L Hct 25.5 L MCH RDW 20.0 H Plt Count 894 H Lymph % (Auto) [place] % (Auto) [place] # Baso # Seg Neutrophils % Seg Neuts % (Manual) Lymphocytes % (Manual) Monocytes % (Manual) Seg Neutrophils # Seg Neutrophils # Man Lymphocytes # (Manual) Monocytes # (Manual) Eosinophils # (Manual) Basophils # (Manual) PT INR APTT ABG pH ABG pO2 ABG HCO3 ABG O2 Saturation ABG Base Excess ABG Hemoglobin Oxyhemoglobin Sodium Potassium Chloride Carbon Dioxide BUN Creatinine Glucose POC Glucose 120 H 140 H Lactic Acid Calcium Ionized Calcium Phosphorus Magnesium Total Bilirubin AST ALT Alkaline Phosphatase Ammonia Total Creatine Kinase CK-MB (CK-2) CK-MB (CK-2) Rel Index Total Protein Albumin Urine WBC (Auto) Vancomycin Trough Salicylates Acetaminophen Plasma/Serum Alcohol Crossmatch 12/26/19 12/26/19 12/26/19 09:47 11:46 17:52 WBC RBC Hgb Hct MCH RDW Plt Count Lymph % (Auto) [place] % (Auto) [place] # Baso # Seg Neutrophils % Seg Neuts % (Manual) Lymphocytes % (Manual) Monocytes % (Manual) Seg Neutrophils # Seg Neutrophils # Man Lymphocytes # (Manual) Monocytes # (Manual) Eosinophils # (Manual) Basophils # (Manual) PT INR APTT ABG pH ABG pO2 ABG HCO3 ABG O2 Saturation ABG Base Excess ABG Hemoglobin Oxyhemoglobin Sodium Potassium Chloride Carbon Dioxide 18 L BUN 65 H Creatinine 1.4 H Glucose 132 H POC Glucose 110 H 145 H Lactic Acid Calcium Ionized Calcium Phosphorus Magnesium Total Bilirubin AST ALT Alkaline Phosphatase Ammonia Total Creatine Kinase CK-MB (CK-2) CK-MB (CK-2) Rel Index Total Protein Albumin Urine WBC (Auto) Vancomycin Trough Salicylates Acetaminophen Plasma/Serum Alcohol Crossmatch 12/27/19 12/27/19 12/27/19 00:01 03:42 03:42 WBC 18.0 H RBC 2.86 L Hgb 8.0 L Hct 25.2 L MCH RDW 19.2 H Plt Count 873 H Lymph % (Auto) 8.4 L [place] % (Auto) 7.5 H [place] # 1.4 H Baso # 0.2 H Seg Neutrophils % 82.2 H Seg Neuts % (Manual) Lymphocytes % (Manual) Monocytes % (Manual) Seg Neutrophils # 14.8 H Seg Neutrophils # Man Lymphocytes # (Manual) Monocytes # (Manual) Eosinophils # (Manual) Basophils # (Manual) PT INR APTT ABG pH ABG pO2 ABG HCO3 ABG O2 Saturation ABG Base Excess ABG Hemoglobin Oxyhemoglobin Sodium Potassium Chloride Carbon Dioxide BUN 73 H Creatinine 1.4 H Glucose 119 H POC Glucose 124 H Lactic Acid Calcium Ionized Calcium Phosphorus Magnesium Total Bilirubin AST ALT Alkaline Phosphatase Ammonia Total Creatine Kinase CK-MB (CK-2) CK-MB (CK-2) Rel Index Total Protein Albumin Urine WBC (Auto) Vancomycin Trough Salicylates Acetaminophen Plasma/Serum Alcohol Crossmatch 12/27/19 12/27/19 12/27/19 05:45 11:45 17:29 WBC RBC Hgb Hct MCH RDW Plt Count Lymph % (Auto) [place] % (Auto) [place] # Baso # Seg Neutrophils % Seg Neuts % (Manual) Lymphocytes % (Manual) Monocytes % (Manual) Seg Neutrophils # Seg Neutrophils # Man Lymphocytes # (Manual) Monocytes # (Manual) Eosinophils # (Manual) Basophils # (Manual) PT INR APTT ABG pH ABG pO2 ABG HCO3 ABG O2 Saturation ABG Base Excess ABG Hemoglobin Oxyhemoglobin Sodium Potassium Chloride Carbon Dioxide BUN Creatinine Glucose POC Glucose 131 H 123 H 134 H Lactic Acid Calcium Ionized Calcium Phosphorus Magnesium Total Bilirubin AST ALT Alkaline Phosphatase Ammonia Total Creatine Kinase CK-MB (CK-2) CK-MB (CK-2) Rel Index Total Protein Albumin Urine WBC (Auto) Vancomycin Trough Salicylates Acetaminophen Plasma/Serum Alcohol Crossmatch 12/28/19 12/28/19 12/28/19 00:12 05:14 11:53 WBC RBC Hgb Hct MCH RDW Plt Count Lymph % (Auto) [place] % (Auto) [place] # Baso # Seg Neutrophils % Seg Neuts % (Manual) Lymphocytes % (Manual) Monocytes % (Manual) Seg Neutrophils # Seg Neutrophils # Man Lymphocytes # (Manual) Monocytes # (Manual) Eosinophils # (Manual) Basophils # (Manual) PT INR APTT ABG pH ABG pO2 ABG HCO3 ABG O2 Saturation ABG Base Excess ABG Hemoglobin Oxyhemoglobin Sodium Potassium Chloride Carbon Dioxide BUN Creatinine Glucose POC Glucose 138 H 130 H 146 H Lactic Acid Calcium Ionized Calcium Phosphorus Magnesium Total Bilirubin AST ALT Alkaline Phosphatase Ammonia Total Creatine Kinase CK-MB (CK-2) CK-MB (CK-2) Rel Index Total Protein Albumin Urine WBC (Auto) Vancomycin Trough Salicylates Acetaminophen Plasma/Serum Alcohol Crossmatch 12/28/19 12/29/19 12/29/19 17:39 00:01 18:11 WBC RBC Hgb Hct MCH RDW Plt Count Lymph % (Auto) [place] % (Auto) [place] # Baso # Seg Neutrophils % Seg Neuts % (Manual) Lymphocytes % (Manual) Monocytes % (Manual) Seg Neutrophils # Seg Neutrophils # Man Lymphocytes # (Manual) Monocytes # (Manual) Eosinophils # (Manual) Basophils # (Manual) PT INR APTT ABG pH ABG pO2 ABG HCO3 ABG O2 Saturation ABG Base Excess ABG Hemoglobin Oxyhemoglobin Sodium Potassium Chloride Carbon Dioxide BUN Creatinine Glucose POC Glucose 117 H 139 H 130 H Lactic Acid Calcium Ionized Calcium Phosphorus Magnesium Total Bilirubin AST ALT Alkaline Phosphatase Ammonia Total Creatine Kinase CK-MB (CK-2) CK-MB (CK-2) Rel Index Total Protein Albumin Urine WBC (Auto) Vancomycin Trough Salicylates Acetaminophen Plasma/Serum Alcohol Crossmatch 12/29/19 12/30/19 12/30/19 23:09 00:02 01:06 WBC 16.7 H RBC 2.91 L Hgb 8.2 L Hct 25.4 L MCH RDW 18.7 H Plt Count 708 H Lymph % (Auto) 9.4 L [place] % (Auto) [place] # 0.9 H Baso # Seg Neutrophils % 83.5 H Seg Neuts % (Manual) Lymphocytes % (Manual) Monocytes % (Manual) Seg Neutrophils # 14.0 H Seg Neutrophils # Man Lymphocytes # (Manual) Monocytes # (Manual) Eosinophils # (Manual) Basophils # (Manual) PT INR APTT ABG pH ABG pO2 ABG HCO3 ABG O2 Saturation ABG Base Excess ABG Hemoglobin Oxyhemoglobin Sodium Potassium Chloride Carbon Dioxide BUN Creatinine Glucose POC Glucose 120 H 114 H Lactic Acid Calcium Ionized Calcium Phosphorus Magnesium Total Bilirubin AST ALT Alkaline Phosphatase Ammonia Total Creatine Kinase CK-MB (CK-2) CK-MB (CK-2) Rel Index Total Protein Albumin Urine WBC (Auto) Vancomycin Trough Salicylates Acetaminophen Plasma/Serum Alcohol Crossmatch 12/30/19 12/30/19 12/30/19 01:06 04:23 05:18 WBC RBC Hgb Hct MCH RDW Plt Count Lymph % (Auto) [place] % (Auto) [place] # Baso # Seg Neutrophils % Seg Neuts % (Manual) Lymphocytes % (Manual) Monocytes % (Manual) Seg Neutrophils # Seg Neutrophils # Man Lymphocytes # (Manual) Monocytes # (Manual) Eosinophils # (Manual) Basophils # (Manual) PT INR APTT ABG pH ABG pO2 ABG HCO3 ABG O2 Saturation ABG Base Excess ABG Hemoglobin 8.3 L Oxyhemoglobin Sodium Potassium Chloride Carbon Dioxide BUN 70 H Creatinine Glucose 122 H POC Glucose 130 H Lactic Acid Calcium Ionized Calcium Phosphorus Magnesium Total Bilirubin AST ALT Alkaline Phosphatase Ammonia Total Creatine Kinase CK-MB (CK-2) CK-MB (CK-2) Rel Index Total Protein Albumin Urine WBC (Auto) Vancomycin Trough Salicylates Acetaminophen Plasma/Serum Alcohol Crossmatch 12/30/19 12/30/19 12/30/19 05:40 12:17 17:43 WBC RBC Hgb Hct MCH RDW Plt Count Lymph % (Auto) [place] % (Auto) [place] # Baso # Seg Neutrophils % Seg Neuts % (Manual) Lymphocytes % (Manual) Monocytes % (Manual) Seg Neutrophils # Seg Neutrophils # Man Lymphocytes # (Manual) Monocytes # (Manual) Eosinophils # (Manual) Basophils # (Manual) PT INR APTT ABG pH ABG pO2 ABG HCO3 ABG O2 Saturation ABG Base Excess ABG Hemoglobin Oxyhemoglobin Sodium Potassium Chloride Carbon Dioxide BUN Creatinine Glucose POC Glucose 135 H 132 H 118 H Lactic Acid Calcium Ionized Calcium Phosphorus Magnesium Total Bilirubin AST ALT Alkaline Phosphatase Ammonia Total Creatine Kinase CK-MB (CK-2) CK-MB (CK-2) Rel Index Total Protein Albumin Urine WBC (Auto) Vancomycin Trough Salicylates Acetaminophen Plasma/Serum Alcohol Crossmatch 12/30/19 12/31/19 12/31/19 23:29 05:19 17:50 WBC RBC Hgb Hct MCH RDW Plt Count Lymph % (Auto) [place] % (Auto) [place] # Baso # Seg Neutrophils % Seg Neuts % (Manual) Lymphocytes % (Manual) Monocytes % (Manual) Seg Neutrophils # Seg Neutrophils # Man Lymphocytes # (Manual) Monocytes # (Manual) Eosinophils # (Manual) Basophils # (Manual) PT INR APTT ABG pH ABG pO2 ABG HCO3 ABG O2 Saturation ABG Base Excess ABG Hemoglobin Oxyhemoglobin Sodium Potassium Chloride Carbon Dioxide BUN Creatinine Glucose POC Glucose 114 H 109 H 116 H Lactic Acid Calcium Ionized Calcium Phosphorus Magnesium Total Bilirubin AST ALT Alkaline Phosphatase Ammonia Total Creatine Kinase CK-MB (CK-2) CK-MB (CK-2) Rel Index Total Protein Albumin Urine WBC (Auto) Vancomycin Trough Salicylates Acetaminophen Plasma/Serum Alcohol Crossmatch 01/01/20 01/01/20 01/01/20 00:10 05:19 12:02 WBC RBC Hgb Hct MCH RDW Plt Count Lymph % (Auto) [place] % (Auto) [place] # Baso # Seg Neutrophils % Seg Neuts % (Manual) Lymphocytes % (Manual) Monocytes % (Manual) Seg Neutrophils # Seg Neutrophils # Man Lymphocytes # (Manual) Monocytes # (Manual) Eosinophils # (Manual) Basophils # (Manual) PT INR APTT ABG pH ABG pO2 ABG HCO3 ABG O2 Saturation ABG Base Excess ABG Hemoglobin Oxyhemoglobin Sodium Potassium Chloride Carbon Dioxide BUN Creatinine Glucose POC Glucose 131 H 122 H 136 H Lactic Acid Calcium Ionized Calcium Phosphorus Magnesium Total Bilirubin AST ALT Alkaline Phosphatase Ammonia Total Creatine Kinase CK-MB (CK-2) CK-MB (CK-2) Rel Index Total Protein Albumin Urine WBC (Auto) Vancomycin Trough Salicylates Acetaminophen Plasma/Serum Alcohol Crossmatch 01/02/20 01/02/20 01/02/20 00:24 05:36 11:41 WBC RBC Hgb Hct MCH RDW Plt Count Lymph % (Auto) [place] % (Auto) [place] # Baso # Seg Neutrophils % Seg Neuts % (Manual) Lymphocytes % (Manual) Monocytes % (Manual) Seg Neutrophils # Seg Neutrophils # Man Lymphocytes # (Manual) Monocytes # (Manual) Eosinophils # (Manual) Basophils # (Manual) PT INR APTT ABG pH ABG pO2 ABG HCO3 ABG O2 Saturation ABG Base Excess ABG Hemoglobin Oxyhemoglobin Sodium Potassium Chloride Carbon Dioxide BUN Creatinine Glucose POC Glucose 119 H 109 H 125 H Lactic Acid Calcium Ionized Calcium Phosphorus Magnesium Total Bilirubin AST ALT Alkaline Phosphatase Ammonia Total Creatine Kinase CK-MB (CK-2) CK-MB (CK-2) Rel Index Total Protein Albumin Urine WBC (Auto) Vancomycin Trough Salicylates Acetaminophen Plasma/Serum Alcohol Crossmatch 01/02/20 01/03/20 01/03/20 17:49 05:29 12:13 WBC RBC Hgb Hct MCH RDW Plt Count Lymph % (Auto) [place] % (Auto) [place] # Baso # Seg Neutrophils % Seg Neuts % (Manual) Lymphocytes % (Manual) Monocytes % (Manual) Seg Neutrophils # Seg Neutrophils # Man Lymphocytes # (Manual) Monocytes # (Manual) Eosinophils # (Manual) Basophils # (Manual) PT INR APTT ABG pH ABG pO2 ABG HCO3 ABG O2 Saturation ABG Base Excess ABG Hemoglobin Oxyhemoglobin Sodium Potassium Chloride Carbon Dioxide BUN Creatinine Glucose POC Glucose 130 H 132 H 113 H Lactic Acid Calcium Ionized Calcium Phosphorus Magnesium Total Bilirubin AST ALT Alkaline Phosphatase Ammonia Total Creatine Kinase CK-MB (CK-2) CK-MB (CK-2) Rel Index Total Protein Albumin Urine WBC (Auto) Vancomycin Trough Salicylates Acetaminophen Plasma/Serum Alcohol Crossmatch 01/03/20 01/04/20 01/04/20 17:32 00:19 05:26 WBC RBC Hgb Hct MCH RDW Plt Count Lymph % (Auto) [place] % (Auto) [place] # Baso # Seg Neutrophils % Seg Neuts % (Manual) Lymphocytes % (Manual) Monocytes % (Manual) Seg Neutrophils # Seg Neutrophils # Man Lymphocytes # (Manual) Monocytes # (Manual) Eosinophils # (Manual) Basophils # (Manual) PT INR APTT ABG pH ABG pO2 ABG HCO3 ABG O2 Saturation ABG Base Excess ABG Hemoglobin Oxyhemoglobin Sodium Potassium Chloride Carbon Dioxide BUN Creatinine Glucose POC Glucose 127 H 141 H 129 H Lactic Acid Calcium Ionized Calcium Phosphorus Magnesium Total Bilirubin AST ALT Alkaline Phosphatase Ammonia Total Creatine Kinase CK-MB (CK-2) CK-MB (CK-2) Rel Index Total Protein Albumin Urine WBC (Auto) Vancomycin Trough Salicylates Acetaminophen Plasma/Serum Alcohol Crossmatch 01/04/20 01/04/20 01/05/20 11:39 17:29 05:22 WBC RBC Hgb Hct MCH RDW Plt Count Lymph % (Auto) [place] % (Auto) [place] # Baso # Seg Neutrophils % Seg Neuts % (Manual) Lymphocytes % (Manual) Monocytes % (Manual) Seg Neutrophils # Seg Neutrophils # Man Lymphocytes # (Manual) Monocytes # (Manual) Eosinophils # (Manual) Basophils # (Manual) PT INR APTT ABG pH ABG pO2 ABG HCO3 ABG O2 Saturation ABG Base Excess ABG Hemoglobin Oxyhemoglobin Sodium Potassium Chloride Carbon Dioxide BUN Creatinine Glucose POC Glucose 167 H 132 H 121 H Lactic Acid Calcium Ionized Calcium Phosphorus Magnesium Total Bilirubin AST ALT Alkaline Phosphatase Ammonia Total Creatine Kinase CK-MB (CK-2) CK-MB (CK-2) Rel Index Total Protein Albumin Urine WBC (Auto) Vancomycin Trough Salicylates Acetaminophen Plasma/Serum Alcohol Crossmatch 01/05/20 01/05/20 01/05/20 12:25 17:40 18:06 WBC RBC Hgb Hct MCH RDW Plt Count Lymph % (Auto) [place] % (Auto) [place] # Baso # Seg Neutrophils % Seg Neuts % (Manual) Lymphocytes % (Manual) Monocytes % (Manual) Seg Neutrophils # Seg Neutrophils # Man Lymphocytes # (Manual) Monocytes # (Manual) Eosinophils # (Manual) Basophils # (Manual) PT INR APTT ABG pH 7.472 H ABG pO2 99.2 H ABG HCO3 ABG O2 Saturation ABG Base Excess ABG Hemoglobin 7.8 L Oxyhemoglobin Sodium Potassium Chloride Carbon Dioxide BUN Creatinine Glucose POC Glucose 106 H 110 H Lactic Acid Calcium Ionized Calcium Phosphorus Magnesium Total Bilirubin AST ALT Alkaline Phosphatase Ammonia Total Creatine Kinase CK-MB (CK-2) CK-MB (CK-2) Rel Index Total Protein Albumin Urine WBC (Auto) Vancomycin Trough Salicylates Acetaminophen Plasma/Serum Alcohol Crossmatch 01/06/20 01/06/20 01/06/20 00:11 05:16 11:30 WBC RBC Hgb Hct MCH RDW Plt Count Lymph % (Auto) [place] % (Auto) [place] # Baso # Seg Neutrophils % Seg Neuts % (Manual) Lymphocytes % (Manual) Monocytes % (Manual) Seg Neutrophils # Seg Neutrophils # Man Lymphocytes # (Manual) Monocytes # (Manual) Eosinophils # (Manual) Basophils # (Manual) PT INR APTT ABG pH ABG pO2 ABG HCO3 ABG O2 Saturation ABG Base Excess ABG Hemoglobin Oxyhemoglobin Sodium Potassium Chloride Carbon Dioxide BUN Creatinine Glucose POC Glucose 108 H 124 H 125 H Lactic Acid Calcium Ionized Calcium Phosphorus Magnesium Total Bilirubin AST ALT Alkaline Phosphatase Ammonia Total Creatine Kinase CK-MB (CK-2) CK-MB (CK-2) Rel Index Total Protein Albumin Urine WBC (Auto) Vancomycin Trough Salicylates Acetaminophen Plasma/Serum Alcohol Crossmatch 01/06/20 01/06/20 01/07/20 17:53 23:51 04:12 WBC 16.5 H RBC 3.29 L Hgb 9.3 L Hct 28.1 L MCH RDW 18.2 H Plt Count 526 H Lymph % (Auto) 8.4 L [place] % (Auto) [place] # 1.0 H Baso # Seg Neutrophils % 84.4 H Seg Neuts % (Manual) Lymphocytes % (Manual) Monocytes % (Manual) Seg Neutrophils # 13.9 H Seg Neutrophils # Man Lymphocytes # (Manual) Monocytes # (Manual) Eosinophils # (Manual) Basophils # (Manual) PT INR APTT ABG pH ABG pO2 ABG HCO3 ABG O2 Saturation ABG Base Excess ABG Hemoglobin Oxyhemoglobin Sodium Potassium Chloride Carbon Dioxide BUN Creatinine Glucose POC Glucose 166 H 128 H Lactic Acid Calcium Ionized Calcium Phosphorus Magnesium Total Bilirubin AST ALT Alkaline Phosphatase Ammonia Total Creatine Kinase CK-MB (CK-2) CK-MB (CK-2) Rel Index Total Protein Albumin Urine WBC (Auto) Vancomycin Trough Salicylates Acetaminophen Plasma/Serum Alcohol Crossmatch 01/07/20 01/07/20 01/07/20 04:12 04:45 11:51 WBC RBC Hgb Hct MCH RDW Plt Count Lymph % (Auto) [place] % (Auto) [place] # Baso # Seg Neutrophils % Seg Neuts % (Manual) Lymphocytes % (Manual) Monocytes % (Manual) Seg Neutrophils # Seg Neutrophils # Man Lymphocytes # (Manual) Monocytes # (Manual) Eosinophils # (Manual) Basophils # (Manual) PT INR APTT ABG pH ABG pO2 ABG HCO3 ABG O2 Saturation ABG Base Excess ABG Hemoglobin Oxyhemoglobin Sodium 136 L Potassium Chloride Carbon Dioxide 21 L BUN 44 H Creatinine 0.6 L Glucose 124 H POC Glucose 134 H 138 H Lactic Acid Calcium Ionized Calcium Phosphorus Magnesium Total Bilirubin AST ALT Alkaline Phosphatase Ammonia Total Creatine Kinase CK-MB (CK-2) CK-MB (CK-2) Rel Index Total Protein Albumin Urine WBC (Auto) Vancomycin Trough Salicylates Acetaminophen Plasma/Serum Alcohol Crossmatch 01/07/20 01/08/20 01/08/20 17:36 00:33 05:29 WBC RBC Hgb Hct MCH RDW Plt Count Lymph % (Auto) [place] % (Auto) [place] # Baso # Seg Neutrophils % Seg Neuts % (Manual) Lymphocytes % (Manual) Monocytes % (Manual) Seg Neutrophils # Seg Neutrophils # Man Lymphocytes # (Manual) Monocytes # (Manual) Eosinophils # (Manual) Basophils # (Manual) PT INR APTT ABG pH ABG pO2 ABG HCO3 ABG O2 Saturation ABG Base Excess ABG Hemoglobin Oxyhemoglobin Sodium Potassium Chloride Carbon Dioxide BUN Creatinine Glucose POC Glucose 128 H 119 H 124 H Lactic Acid Calcium Ionized Calcium Phosphorus Magnesium Total Bilirubin AST ALT Alkaline Phosphatase Ammonia Total Creatine Kinase CK-MB (CK-2) CK-MB (CK-2) Rel Index Total Protein Albumin Urine WBC (Auto) Vancomycin Trough Salicylates Acetaminophen Plasma/Serum Alcohol Crossmatch 01/08/20 01/08/20 01/08/20 12:51 20:25 23:22 WBC RBC Hgb Hct MCH RDW Plt Count Lymph % (Auto) [place] % (Auto) [place] # Baso # Seg Neutrophils % Seg Neuts % (Manual) Lymphocytes % (Manual) Monocytes % (Manual) Seg Neutrophils # Seg Neutrophils # Man Lymphocytes # (Manual) Monocytes # (Manual) Eosinophils # (Manual) Basophils # (Manual) PT INR APTT ABG pH ABG pO2 132.2 H ABG HCO3 ABG O2 Saturation ABG Base Excess ABG Hemoglobin Oxyhemoglobin Sodium Potassium Chloride Carbon Dioxide BUN Creatinine Glucose POC Glucose 128 H 127 H Lactic Acid Calcium Ionized Calcium Phosphorus Magnesium Total Bilirubin AST ALT Alkaline Phosphatase Ammonia Total Creatine Kinase CK-MB (CK-2) CK-MB (CK-2) Rel Index Total Protein Albumin Urine WBC (Auto) Vancomycin Trough Salicylates Acetaminophen Plasma/Serum Alcohol Crossmatch 01/09/20 01/09/20 01/09/20 05:48 08:51 11:29 WBC RBC Hgb Hct MCH RDW Plt Count Lymph % (Auto) [place] % (Auto) [place] # Baso # Seg Neutrophils % Seg Neuts % (Manual) Lymphocytes % (Manual) Monocytes % (Manual) Seg Neutrophils # Seg Neutrophils # Man Lymphocytes # (Manual) Monocytes # (Manual) Eosinophils # (Manual) Basophils # (Manual) PT INR APTT ABG pH ABG pO2 94.3 H ABG HCO3 ABG O2 Saturation ABG Base Excess ABG Hemoglobin 9.5 L Oxyhemoglobin Sodium Potassium Chloride Carbon Dioxide BUN Creatinine Glucose POC Glucose 120 H 112 H Lactic Acid Calcium Ionized Calcium Phosphorus Magnesium Total Bilirubin AST ALT Alkaline Phosphatase Ammonia Total Creatine Kinase CK-MB (CK-2) CK-MB (CK-2) Rel Index Total Protein Albumin Urine WBC (Auto) Vancomycin Trough Salicylates Acetaminophen Plasma/Serum Alcohol Crossmatch 01/09/20 01/10/20 01/10/20 17:57 05:17 12:28 WBC RBC Hgb Hct MCH RDW Plt Count Lymph % (Auto) [place] % (Auto) [place] # Baso # Seg Neutrophils % Seg Neuts % (Manual) Lymphocytes % (Manual) Monocytes % (Manual) Seg Neutrophils # Seg Neutrophils # Man Lymphocytes # (Manual) Monocytes # (Manual) Eosinophils # (Manual) Basophils # (Manual) PT INR APTT ABG pH ABG pO2 ABG HCO3 ABG O2 Saturation ABG Base Excess ABG Hemoglobin Oxyhemoglobin Sodium Potassium Chloride Carbon Dioxide BUN Creatinine Glucose POC Glucose 122 H 115 H 116 H Lactic Acid Calcium Ionized Calcium Phosphorus Magnesium Total Bilirubin AST ALT Alkaline Phosphatase Ammonia Total Creatine Kinase CK-MB (CK-2) CK-MB (CK-2) Rel Index Total Protein Albumin Urine WBC (Auto) Vancomycin Trough Salicylates Acetaminophen Plasma/Serum Alcohol Crossmatch 01/10/20 01/10/20 01/11/20 18:25 23:47 06:05 WBC RBC Hgb Hct MCH RDW Plt Count Lymph % (Auto) [place] % (Auto) [place] # Baso # Seg Neutrophils % Seg Neuts % (Manual) Lymphocytes % (Manual) Monocytes % (Manual) Seg Neutrophils # Seg Neutrophils # Man Lymphocytes # (Manual) Monocytes # (Manual) Eosinophils # (Manual) Basophils # (Manual) PT INR APTT ABG pH ABG pO2 ABG HCO3 ABG O2 Saturation ABG Base Excess ABG Hemoglobin Oxyhemoglobin Sodium Potassium Chloride Carbon Dioxide BUN Creatinine Glucose POC Glucose 123 H 115 H 151 H Lactic Acid Calcium Ionized Calcium Phosphorus Magnesium Total Bilirubin AST ALT Alkaline Phosphatase Ammonia Total Creatine Kinase CK-MB (CK-2) CK-MB (CK-2) Rel Index Total Protein Albumin Urine WBC (Auto) Vancomycin Trough Salicylates Acetaminophen Plasma/Serum Alcohol Crossmatch 01/11/20 01/11/20 01/11/20 07:00 07:00 12:27 WBC 11.8 H RBC 3.40 L Hgb 9.4 L Hct 29.3 L MCH RDW 18.1 H Plt Count 549 H Lymph % (Auto) [place] % (Auto) 9.1 H [place] # 1.1 H Baso # Seg Neutrophils % 73.3 H Seg Neuts % (Manual) Lymphocytes % (Manual) Monocytes % (Manual) Seg Neutrophils # 8.7 H Seg Neutrophils # Man Lymphocytes # (Manual) Monocytes # (Manual) Eosinophils # (Manual) Basophils # (Manual) PT INR APTT ABG pH ABG pO2 ABG HCO3 ABG O2 Saturation ABG Base Excess ABG Hemoglobin Oxyhemoglobin Sodium 134 L Potassium Chloride 97.7 L Carbon Dioxide 21 L BUN 38 H Creatinine 0.5 L Glucose 168 H POC Glucose 117 H Lactic Acid Calcium 10.5 H Ionized Calcium Phosphorus Magnesium Total Bilirubin AST ALT Alkaline Phosphatase Ammonia Total Creatine Kinase CK-MB (CK-2) CK-MB (CK-2) Rel Index Total Protein Albumin Urine WBC (Auto) Vancomycin Trough Salicylates Acetaminophen Plasma/Serum Alcohol Crossmatch 01/11/20 01/12/20 01/12/20 18:19 00:53 05:24 WBC RBC Hgb Hct MCH RDW Plt Count Lymph % (Auto) [place] % (Auto) [place] # Baso # Seg Neutrophils % Seg Neuts % (Manual) Lymphocytes % (Manual) Monocytes % (Manual) Seg Neutrophils # Seg Neutrophils # Man Lymphocytes # (Manual) Monocytes # (Manual) Eosinophils # (Manual) Basophils # (Manual) PT INR APTT ABG pH ABG pO2 ABG HCO3 ABG O2 Saturation ABG Base Excess ABG Hemoglobin Oxyhemoglobin Sodium Potassium Chloride Carbon Dioxide BUN Creatinine Glucose POC Glucose 126 H 126 H 128 H Lactic Acid Calcium Ionized Calcium Phosphorus Magnesium Total Bilirubin AST ALT Alkaline Phosphatase Ammonia Total Creatine Kinase CK-MB (CK-2) CK-MB (CK-2) Rel Index Total Protein Albumin Urine WBC (Auto) Vancomycin Trough Salicylates Acetaminophen Plasma/Serum Alcohol Crossmatch 01/12/20 01/12/20 01/13/20 13:39 18:02 00:27 WBC RBC Hgb Hct MCH RDW Plt Count Lymph % (Auto) [place] % (Auto) [place] # Baso # Seg Neutrophils % Seg Neuts % (Manual) Lymphocytes % (Manual) Monocytes % (Manual) Seg Neutrophils # Seg Neutrophils # Man Lymphocytes # (Manual) Monocytes # (Manual) Eosinophils # (Manual) Basophils # (Manual) PT INR APTT ABG pH ABG pO2 ABG HCO3 ABG O2 Saturation ABG Base Excess ABG Hemoglobin Oxyhemoglobin Sodium Potassium Chloride Carbon Dioxide BUN Creatinine Glucose POC Glucose 146 H 125 H 131 H Lactic Acid Calcium Ionized Calcium Phosphorus Magnesium Total Bilirubin AST ALT Alkaline Phosphatase Ammonia Total Creatine Kinase CK-MB (CK-2) CK-MB (CK-2) Rel Index Total Protein Albumin Urine WBC (Auto) Vancomycin Trough Salicylates Acetaminophen Plasma/Serum Alcohol Crossmatch 01/13/20 01/13/20 01/13/20 05:44 11:54 17:18 WBC RBC Hgb Hct MCH RDW Plt Count Lymph % (Auto) [place] % (Auto) [place] # Baso # Seg Neutrophils % Seg Neuts % (Manual) Lymphocytes % (Manual) Monocytes % (Manual) Seg Neutrophils # Seg Neutrophils # Man Lymphocytes # (Manual) Monocytes # (Manual) Eosinophils # (Manual) Basophils # (Manual) PT INR APTT ABG pH ABG pO2 ABG HCO3 ABG O2 Saturation ABG Base Excess ABG Hemoglobin Oxyhemoglobin Sodium Potassium Chloride Carbon Dioxide BUN Creatinine Glucose POC Glucose 148 H 140 H 130 H Lactic Acid Calcium Ionized Calcium Phosphorus Magnesium Total Bilirubin AST ALT Alkaline Phosphatase Ammonia Total Creatine Kinase CK-MB (CK-2) CK-MB (CK-2) Rel Index Total Protein Albumin Urine WBC (Auto) Vancomycin Trough Salicylates Acetaminophen Plasma/Serum Alcohol Crossmatch 01/14/20 01/14/20 01/14/20 00:16 05:45 12:19 WBC RBC Hgb Hct MCH RDW Plt Count Lymph % (Auto) [place] % (Auto) [place] # Baso # Seg Neutrophils % Seg Neuts % (Manual) Lymphocytes % (Manual) Monocytes % (Manual) Seg Neutrophils # Seg Neutrophils # Man Lymphocytes # (Manual) Monocytes # (Manual) Eosinophils # (Manual) Basophils # (Manual) PT INR APTT ABG pH ABG pO2 ABG HCO3 ABG O2 Saturation ABG Base Excess ABG Hemoglobin Oxyhemoglobin Sodium Potassium Chloride Carbon Dioxide BUN Creatinine Glucose POC Glucose 125 H 146 H 147 H Lactic Acid Calcium Ionized Calcium Phosphorus Magnesium Total Bilirubin AST ALT Alkaline Phosphatase Ammonia Total Creatine Kinase CK-MB (CK-2) CK-MB (CK-2) Rel Index Total Protein Albumin Urine WBC (Auto) Vancomycin Trough Salicylates Acetaminophen Plasma/Serum Alcohol Crossmatch 01/14/20 01/14/20 01/15/20 18:10 23:54 05:14 WBC RBC Hgb Hct MCH RDW Plt Count Lymph % (Auto) [place] % (Auto) [place] # Baso # Seg Neutrophils % Seg Neuts % (Manual) Lymphocytes % (Manual) Monocytes % (Manual) Seg Neutrophils # Seg Neutrophils # Man Lymphocytes # (Manual) Monocytes # (Manual) Eosinophils # (Manual) Basophils # (Manual) PT INR APTT ABG pH ABG pO2 ABG HCO3 ABG O2 Saturation ABG Base Excess ABG Hemoglobin Oxyhemoglobin Sodium Potassium Chloride Carbon Dioxide BUN Creatinine Glucose POC Glucose 136 H 109 H 111 H Lactic Acid Calcium Ionized Calcium Phosphorus Magnesium Total Bilirubin AST ALT Alkaline Phosphatase Ammonia Total Creatine Kinase CK-MB (CK-2) CK-MB (CK-2) Rel Index Total Protein Albumin Urine WBC (Auto) Vancomycin Trough Salicylates Acetaminophen Plasma/Serum Alcohol Crossmatch 01/15/20 01/15/20 01/16/20 12:34 23:25 05:06 WBC RBC Hgb Hct MCH RDW Plt Count Lymph % (Auto) [place] % (Auto) [place] # Baso # Seg Neutrophils % Seg Neuts % (Manual) Lymphocytes % (Manual) Monocytes % (Manual) Seg Neutrophils # Seg Neutrophils # Man Lymphocytes # (Manual) Monocytes # (Manual) Eosinophils # (Manual) Basophils # (Manual) PT INR APTT ABG pH ABG pO2 ABG HCO3 ABG O2 Saturation ABG Base Excess ABG Hemoglobin Oxyhemoglobin Sodium Potassium Chloride Carbon Dioxide BUN Creatinine Glucose POC Glucose 131 H 120 H 121 H Lactic Acid Calcium Ionized Calcium Phosphorus Magnesium Total Bilirubin AST ALT Alkaline Phosphatase Ammonia Total Creatine Kinase CK-MB (CK-2) CK-MB (CK-2) Rel Index Total Protein Albumin Urine WBC (Auto) Vancomycin Trough Salicylates Acetaminophen Plasma/Serum Alcohol Crossmatch 01/16/20 01/17/20 01/17/20 23:46 05:32 06:47 WBC 13.6 H RBC 3.27 L Hgb 9.3 L Hct 28.5 L MCH RDW 17.0 H Plt Count 490 H Lymph % (Auto) 13.1 L [place] % (Auto) [place] # 1.0 H Baso # Seg Neutrophils % 77.5 H Seg Neuts % (Manual) Lymphocytes % (Manual) Monocytes % (Manual) Seg Neutrophils # 10.5 H Seg Neutrophils # Man Lymphocytes # (Manual) Monocytes # (Manual) Eosinophils # (Manual) Basophils # (Manual) PT INR APTT ABG pH ABG pO2 ABG HCO3 ABG O2 Saturation ABG Base Excess ABG Hemoglobin Oxyhemoglobin Sodium Potassium Chloride Carbon Dioxide BUN Creatinine Glucose POC Glucose 107 H 112 H Lactic Acid Calcium Ionized Calcium Phosphorus Magnesium Total Bilirubin AST ALT Alkaline Phosphatase Ammonia Total Creatine Kinase CK-MB (CK-2) CK-MB (CK-2) Rel Index Total Protein Albumin Urine WBC (Auto) Vancomycin Trough Salicylates Acetaminophen Plasma/Serum Alcohol Crossmatch 01/17/20 01/17/20 01/17/20 12:16 17:21 23:34 WBC RBC Hgb Hct MCH RDW Plt Count Lymph % (Auto) [place] % (Auto) [place] # Baso # Seg Neutrophils % Seg Neuts % (Manual) Lymphocytes % (Manual) Monocytes % (Manual) Seg Neutrophils # Seg Neutrophils # Man Lymphocytes # (Manual) Monocytes # (Manual) Eosinophils # (Manual) Basophils # (Manual) PT INR APTT ABG pH ABG pO2 ABG HCO3 ABG O2 Saturation ABG Base Excess ABG Hemoglobin Oxyhemoglobin Sodium Potassium Chloride Carbon Dioxide BUN Creatinine Glucose POC Glucose 145 H 150 H 160 H Lactic Acid Calcium Ionized Calcium Phosphorus Magnesium Total Bilirubin AST ALT Alkaline Phosphatase Ammonia Total Creatine Kinase CK-MB (CK-2) CK-MB (CK-2) Rel Index Total Protein Albumin Urine WBC (Auto) Vancomycin Trough Salicylates Acetaminophen Plasma/Serum Alcohol Crossmatch 01/18/20 01/18/20 05:47 12:43 WBC RBC Hgb Hct MCH RDW Plt Count Lymph % (Auto) [place] % (Auto) [place] # Baso # Seg Neutrophils % Seg Neuts % (Manual) Lymphocytes % (Manual) Monocytes % (Manual) Seg Neutrophils # Seg Neutrophils # Man Lymphocytes # (Manual) Monocytes # (Manual) Eosinophils # (Manual) Basophils # (Manual) PT INR APTT ABG pH ABG pO2 ABG HCO3 ABG O2 Saturation ABG Base Excess ABG Hemoglobin Oxyhemoglobin Sodium Potassium Chloride Carbon Dioxide BUN Creatinine Glucose POC Glucose 130 H 124 H Lactic Acid Calcium Ionized Calcium Phosphorus Magnesium Total Bilirubin AST ALT Alkaline Phosphatase Ammonia Total Creatine Kinase CK-MB (CK-2) CK-MB (CK-2) Rel Index Total Protein Albumin Urine WBC (Auto) Vancomycin Trough Salicylates Acetaminophen Plasma/Serum Alcohol Crossmatch Allied health notes reviewed: RT
[2020-01-18] MEDS: QUEtiapine 100 MG TAB FEEDTUBE SCH (22:09)
[2020-01-19] MEDS: ACETAMINOPHEN 325 MG/10.15 ML ORAL LIQD UNIT DOSE FEEDTUBE PRN (00:30)
[2020-01-19] MEDS: GLYCOPYRROLATE 1 MG TAB PO SCH ×3 (10:15→21:39)
[2020-01-19] MEDS: hydrOXYzine PAMOATE 25 MG CAP PO SCH ×2 (12:47→21:39)
[2020-01-19] MEDS: LANSOPRAZOLE 30 MG SOLUTAB FEEDTUBE SCH (12:48)
[2020-01-19] MEDS: MIRTAZAPINE 30 MG TAB PO SCH (12:48)
[2020-01-19] MEDS: levETIRAcetam 500 MG/5 ML ORAL LIQD PO SCH ×2 (12:49→21:39)
--- NOTE | 2020-01-19 13:36 | Progress Note ---
Assessment and Plan Acute cardiopulmonary arrest with ROSC Acute hypoxemic respiratory failure on MVS Acute metabolic-toxic encephalopathy Metabolic acidosis/alcoholic acidosis/Lactic acidosis Ischemic hepatitis Leucocytosis with lactic acidosis Tobacco use disorder ALcohol use Disorder Hypokalemia High grade fevers - begin mucomyst nebs - advance diet per [employer] - continue RTC T-piece trials as tolerated - no new issues; continue care as below otherwise - repeat CXR prn at this point - Continue to wean supplemental oxygen for target O2 sat's > 90% - continue bronchodilators with routine trach care and pulmonary hygiene per RT - Slow Seroquel taper - consider Provigil - s/p Antibiotics per ID recommendations - continue Reglan for G.I. motility - Continue VTE and Stress ulcer prophylaxis - Continue enteric nutritional support - Monitor glycemic control, with target blood glucose 140-180 mg/dL while critically ill (Avoid hypoglycemia) - ABG and CXR prn - Continue to avoid nephrotoxins, adjust all medications fro GFR and CrCL - Continue to avoid benzodiazepines , as much as possible, to reduce the possibility of delirium - Continue prn analgesia per CPOT score - Continue to maintain of sleep-wake cycle, avoid delirium - PT/OT/ROM exercises- awaiting PT/OT evaluation - Continue mobility protocol and skin assessment per protocol for pressure ulcer prevention - Continue to monitor for clinical seizures - Continue Nicotine withdrawal precautions, alcohol withdrawal precautions - continue other care per attending / other consultants ..... re-evaluate in am & prn CONDITION: FAIR PROGNOSIS: IMPROVED CODE STATUS: FULL CODE Subjective Date of service: 01/19/20 Principal diagnosis: Ac cardiopulmonary arrest; Ac hypoxemic resp failure; Acute encephalopathy Interval history: Patient is seen today for: Acute cardiopulmonary arrest with ROSC; Acute hypoxemic respiratory failure; Acute metabolic-toxic encephalopathy; Ischemic hepatitis; Leucocytosis with lactic acidosis; Tobacco use disorder; Alcohol use Disorder; Hypokalemia; High grade fevers Seen and examined at bedside; 24hour events reviewed; nursing and respiratory care staff consulted; no adverse overnight events reported to me; resting peace fully in bed; secretions thick and tenacious; no new issues otherwise Objective Vital Signs - 12hr 01/19/20 01/19/20 01/19/20 02:00 03:00 04:00 Temperature 96.9 F L Pulse Rate 116 H 107 H 103 H Pulse Rate [ 104 H From Monitor] Respiratory 26 H 27 H 27 H Rate Blood Pressure 112/64 112/64 116/77 O2 Sat by Pulse 99 99 99 Oximetry O2 Sat by Pulse 100 Oximetry [ Assessment] 01/19/20 01/19/20 01/19/20 05:00 06:00 07:00 Temperature Pulse Rate 99 H 102 H 104 H Pulse Rate [ From Monitor] Respiratory 27 H 25 H 23 Rate Blood Pressure 116/77 116/77 116/77 O2 Sat by Pulse 100 100 99 Oximetry O2 Sat by Pulse Oximetry [ Assessment] 01/19/20 01/19/20 01/19/20 07:24 07:25 07:26 Temperature Pulse Rate Pulse Rate [ From Monitor] Respiratory Rate Blood Pressure O2 Sat by Pulse 96 96 Oximetry O2 Sat by Pulse 98 Oximetry [ Assessment] 01/19/20 01/19/20 08:00 12:00 Temperature 97.2 F L 97.6 F Pulse Rate 110 H Pulse Rate [ From Monitor] Respiratory 26 H Rate Blood Pressure 111/69 O2 Sat by Pulse 96 Oximetry O2 Sat by Pulse Oximetry [ Assessment] Constitutional: no acute distress, other (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, with midline tr acheostomy and mild dys-synchrony) Eyes: non-icteric ENT: oropharynx moist, other (s/p trach) Neck: supple, no lymphadenopathy, no JVD Effort: mildly labored Ascultation: Bilateral: diminished breath sounds, rhonchi Percussion: Bilateral: not dull Cardiovascular: regular rate and rhythm (tachycardia), other (S1,S2) Gastrointestinal: normoactive bowel sounds, soft, non-tender, non-distended Integumentary: normal Extremities: no cyanosis, no edema, pulses normal, no ischemia or petechiae Neurologic: other (awake; folowing simple commands) Psychiatric: other (Psychiatric: Unable to assess re: AMS) CBC and BMP: 01/17/20 05:32 01/11/20 07:00 ABG, PT/INR, D-dimer: ABG ABG pH 7.429 pH Units (7.350-7.450) 01/09/20 08:51 ABG pCO2 39.1 mm Hg 01/09/20 08:51 ABG pO2 94.3 mm Hg (80.0-90.0) H 01/09/20 08:51 ABG O2 Saturation 97.4 % (95.0-99.0) 01/09/20 08:51 PT/INR, D-dimer PT 17.0 Sec. (12.2-14.9) H 11/23/19 03:47 INR 1.36 (0.87-1.13) H 11/23/19 03:47 Abnormal lab findings: Abnormal Labs 11/22/19 11/22/19 11/22/19 23:17 23:18 23:27 WBC 21.2 H RBC 3.59 L Hgb 9.8 L Hct MCH 27 L RDW 18.6 H Plt Count 454 H Lymph % (Auto) [place] % (Auto) [place] # Baso # Seg Neutrophils % Seg Neuts % (Manual) 86.0 H Lymphocytes % (Manual) 9.0 L Monocytes % (Manual) Seg Neutrophils # Seg Neutrophils # Man 18.2 H Lymphocytes # (Manual) Monocytes # (Manual) 1.1 H Eosinophils # (Manual) Basophils # (Manual) PT INR APTT ABG pH ABG pO2 ABG HCO3 ABG O2 Saturation ABG Base Excess ABG Hemoglobin Oxyhemoglobin Sodium Potassium Chloride Carbon Dioxide BUN Creatinine Glucose POC Glucose 53 L Lactic Acid Calcium Ionized Calcium Phosphorus Magnesium Total Bilirubin AST ALT Alkaline Phosphatase Ammonia Total Creatine Kinase CK-MB (CK-2) CK-MB (CK-2) Rel Index Total Protein Albumin Urine WBC (Auto) 40.0 H Vancomycin Trough Salicylates Acetaminophen Plasma/Serum Alcohol Crossmatch 11/22/19 11/22/19 11/22/19 23:27 23:27 23:27 WBC RBC Hgb Hct MCH RDW Plt Count Lymph % (Auto) [place] % (Auto) [place] # Baso # Seg Neutrophils % Seg Neuts % (Manual) Lymphocytes % (Manual) Monocytes % (Manual) Seg Neutrophils # Seg Neutrophils # Man Lymphocytes # (Manual) Monocytes # (Manual) Eosinophils # (Manual) Basophils # (Manual) PT INR APTT ABG pH ABG pO2 ABG HCO3 ABG O2 Saturation ABG Base Excess ABG Hemoglobin Oxyhemoglobin Sodium Potassium 2.4 L* Chloride 85.1 L Carbon Dioxide 19 L BUN Creatinine 0.5 L Glucose 261 H POC Glucose Lactic Acid Calcium Ionized Calcium Phosphorus Magnesium Total Bilirubin AST 609 H ALT 152 H Alkaline Phosphatase 160 H Ammonia 117.0 H Total Creatine Kinase 139 H CK-MB (CK-2) 8.3 H CK-MB (CK-2) Rel Index 5.9 H Total Protein Albumin 3.6 L Urine WBC (Auto) Vancomycin Trough Salicylates < 0.3 L Acetaminophen Plasma/Serum Alcohol Crossmatch 11/22/19 11/22/19 11/23/19 23:27 23:27 01:10 WBC RBC Hgb Hct MCH RDW Plt Count Lymph % (Auto) [place] % (Auto) [place] # Baso # Seg Neutrophils % Seg Neuts % (Manual) Lymphocytes % (Manual) Monocytes % (Manual) Seg Neutrophils # Seg Neutrophils # Man Lymphocytes # (Manual) Monocytes # (Manual) Eosinophils # (Manual) Basophils # (Manual) PT INR APTT ABG pH 7.273 L ABG pO2 209.7 H ABG HCO3 ABG O2 Saturation 99.2 H ABG Base Excess -3.9 L ABG Hemoglobin 10.6 L Oxyhemoglobin 93.9 L Sodium Potassium Chloride Carbon Dioxide BUN Creatinine Glucose POC Glucose Lactic Acid Calcium Ionized Calcium Phosphorus Magnesium Total Bilirubin AST ALT Alkaline Phosphatase Ammonia Total Creatine Kinase CK-MB (CK-2) CK-MB (CK-2) Rel Index Total Protein Albumin Urine WBC (Auto) Vancomycin Trough Salicylates Acetaminophen < 5.0 L Plasma/Serum Alcohol 0.08 H Crossmatch 11/23/19 11/23/19 11/23/19 01:19 01:19 03:47 WBC RBC Hgb Hct MCH RDW Plt Count Lymph % (Auto) [place] % (Auto) [place] # Baso # Seg Neutrophils % Seg Neuts % (Manual) Lymphocytes % (Manual) Monocytes % (Manual) Seg Neutrophils # Seg Neutrophils # Man Lymphocytes # (Manual) Monocytes # (Manual) Eosinophils # (Manual) Basophils # (Manual) PT 16.3 H INR 1.29 H APTT ABG pH ABG pO2 ABG HCO3 ABG O2 Saturation ABG Base Excess ABG Hemoglobin Oxyhemoglobin Sodium Potassium Chloride Carbon Dioxide BUN Creatinine Glucose POC Glucose Lactic Acid 2.10 H* 5.00 H* Calcium Ionized Calcium Phosphorus Magnesium Total Bilirubin AST ALT Alkaline Phosphatase Ammonia Total Creatine Kinase CK-MB (CK-2) CK-MB (CK-2) Rel Index Total Protein Albumin Urine WBC (Auto) Vancomycin Trough Salicylates Acetaminophen Plasma/Serum Alcohol Crossmatch 11/23/19 11/23/19 11/23/19 03:47 03:47 04:53 WBC RBC Hgb 9.4 L Hct MCH RDW Plt Count Lymph % (Auto) [place] % (Auto) [place] # Baso # Seg Neutrophils % Seg Neuts % (Manual) Lymphocytes % (Manual) Monocytes % (Manual) Seg Neutrophils # Seg Neutrophils # Man Lymphocytes # (Manual) Monocytes # (Manual) Eosinophils # (Manual) Basophils # (Manual) PT 17.0 H INR 1.36 H APTT 128.2 H* ABG pH ABG pO2 ABG HCO3 ABG O2 Saturation ABG Base Excess ABG Hemoglobin Oxyhemoglobin Sodium Potassium Chloride Carbon Dioxide 18 L BUN Creatinine 0.5 L Glucose 105 H POC Glucose Lactic Acid Calcium 8.3 L Ionized Calcium Phosphorus 2.40 L Magnesium Total Bilirubin 1.30 H AST 761 H ALT 158 H Alkaline Phosphatase 143 H Ammonia Total Creatine Kinase CK-MB (CK-2) CK-MB (CK-2) Rel Index Total Protein Albumin 2.8 L Urine WBC (Auto) Vancomycin Trough Salicylates Acetaminophen Plasma/Serum Alcohol Crossmatch 11/23/19 11/23/19 11/23/19 05:12 06:32 06:32 WBC 16.8 H RBC 3.31 L Hgb 8.9 L Hct 28.7 L MCH 27 L RDW 18.6 H Plt Count Lymph % (Auto) [place] % (Auto) [place] # Baso # Seg Neutrophils % Seg Neuts % (Manual) 94.0 H Lymphocytes % (Manual) 1.0 L Monocytes % (Manual) Seg Neutrophils # Seg Neutrophils # Man 15.8 H Lymphocytes # (Manual) 0.2 L Monocytes # (Manual) Eosinophils # (Manual) Basophils # (Manual) PT INR APTT ABG pH ABG pO2 ABG HCO3 ABG O2 Saturation ABG Base Excess -3.2 L ABG Hemoglobin 9.0 L Oxyhemoglobin 93.6 L Sodium Potassium Chloride Carbon Dioxide BUN Creatinine Glucose POC Glucose Lactic Acid Calcium Ionized Calcium 4.5 L Phosphorus Magnesium Total Bilirubin AST ALT Alkaline Phosphatase Ammonia Total Creatine Kinase CK-MB (CK-2) CK-MB (CK-2) Rel Index Total Protein Albumin Urine WBC (Auto) Vancomycin Trough Salicylates Acetaminophen Plasma/Serum Alcohol Crossmatch 11/23/19 11/24/19 11/24/19 06:32 04:35 04:35 WBC RBC Hgb Hct MCH RDW Plt Count Lymph % (Auto) [place] % (Auto) [place] # Baso # Seg Neutrophils % Seg Neuts % (Manual) Lymphocytes % (Manual) Monocytes % (Manual) Seg Neutrophils # Seg Neutrophils # Man Lymphocytes # (Manual) Monocytes # (Manual) Eosinophils # (Manual) Basophils # (Manual) PT INR APTT ABG pH ABG pO2 ABG HCO3 ABG O2 Saturation ABG Base Excess ABG Hemoglobin Oxyhemoglobin Sodium Potassium Chloride Carbon Dioxide BUN Creatinine Glucose POC Glucose Lactic Acid 3.30 H* Calcium Ionized Calcium Phosphorus Magnesium 1.40 L Total Bilirubin AST ALT Alkaline Phosphatase Ammonia 98.0 H Total Creatine Kinase CK-MB (CK-2) CK-MB (CK-2) Rel Index Total Protein Albumin Urine WBC (Auto) Vancomycin Trough Salicylates Acetaminophen Plasma/Serum Alcohol Crossmatch 11/24/19 11/25/19 11/25/19 05:22 04:34 05:05 WBC 17.3 H RBC 2.88 L Hgb 7.8 L Hct 24.6 L MCH 27 L RDW 18.5 H Plt Count Lymph % (Auto) 7.7 L [place] % (Auto) 9.7 H [place] # 1.7 H Baso # Seg Neutrophils % 82.2 H Seg Neuts % (Manual) Lymphocytes % (Manual) Monocytes % (Manual) Seg Neutrophils # 14.2 H Seg Neutrophils # Man Lymphocytes # (Manual) Monocytes # (Manual) Eosinophils # (Manual) Basophils # (Manual) PT INR APTT ABG pH 7.475 H ABG pO2 ABG HCO3 29.4 H 32.3 H ABG O2 Saturation ABG Base Excess 5.4 H 6.9 H ABG Hemoglobin 9.0 L 10.6 L Oxyhemoglobin 94.3 L Sodium Potassium Chloride Carbon Dioxide BUN Creatinine Glucose POC Glucose Lactic Acid Calcium Ionized Calcium Phosphorus Magnesium Total Bilirubin AST ALT Alkaline Phosphatase Ammonia Total Creatine Kinase CK-MB (CK-2) CK-MB (CK-2) Rel Index Total Protein Albumin Urine WBC (Auto) Vancomycin Trough Salicylates Acetaminophen Plasma/Serum Alcohol Crossmatch 11/25/19 11/25/19 11/26/19 05:05 22:46 03:31 WBC RBC Hgb Hct MCH RDW Plt Count Lymph % (Auto) [place] % (Auto) [place] # Baso # Seg Neutrophils % Seg Neuts % (Manual) Lymphocytes % (Manual) Monocytes % (Manual) Seg Neutrophils # Seg Neutrophils # Man Lymphocytes # (Manual) Monocytes # (Manual) Eosinophils # (Manual) Basophils # (Manual) PT INR APTT ABG pH 7.459 H ABG pO2 ABG HCO3 34.2 H ABG O2 Saturation ABG Base Excess 9.4 H ABG Hemoglobin 7.6 L Oxyhemoglobin 94.8 L Sodium 152 H D 147 H Potassium 2.3 L* D 2.8 L* D Chloride 107.8 H Carbon Dioxide 31 H D 33 H BUN Creatinine 0.6 L 0.6 L Glucose 148 H 177 H POC Glucose Lactic Acid Calcium Ionized Calcium Phosphorus Magnesium Total Bilirubin AST 105 H ALT 71 H Alkaline Phosphatase 155 H Ammonia Total Creatine Kinase CK-MB (CK-2) CK-MB (CK-2) Rel Index Total Protein 5.2 L D Albumin 2.9 L Urine WBC (Auto) Vancomycin Trough Salicylates Acetaminophen Plasma/Serum Alcohol Crossmatch 11/26/19 11/26/19 11/27/19 08:24 08:24 04:20 WBC 12.0 H RBC 3.00 L Hgb 8.0 L 9.3 L Hct 25.9 L 29.7 L MCH 27 L RDW 18.5 H Plt Count Lymph % (Auto) [place] % (Auto) [place] # Baso # Seg Neutrophils % Seg Neuts % (Manual) 89.0 H Lymphocytes % (Manual) 4.0 L Monocytes % (Manual) Seg Neutrophils # Seg Neutrophils # Man 10.7 H Lymphocytes # (Manual) 0.5 L Monocytes # (Manual) Eosinophils # (Manual) Basophils # (Manual) PT INR APTT ABG pH ABG pO2 ABG HCO3 ABG O2 Saturation ABG Base Excess ABG Hemoglobin Oxyhemoglobin Sodium 146 H Potassium 3.4 L D Chloride Carbon Dioxide BUN Creatinine 0.5 L Glucose 165 H POC Glucose Lactic Acid Calcium Ionized Calcium Phosphorus Magnesium Total Bilirubin AST 57 H ALT Alkaline Phosphatase 166 H Ammonia Total Creatine Kinase CK-MB (CK-2) CK-MB (CK-2) Rel Index Total Protein Albumin 2.9 L Urine WBC (Auto) Vancomycin Trough Salicylates Acetaminophen Plasma/Serum Alcohol Crossmatch 11/27/19 11/27/19 11/27/19 04:28 04:28 04:42 WBC RBC Hgb Hct MCH RDW Plt Count Lymph % (Auto) [place] % (Auto) [place] # Baso # Seg Neutrophils % Seg Neuts % (Manual) Lymphocytes % (Manual) Monocytes % (Manual) Seg Neutrophils # Seg Neutrophils # Man Lymphocytes # (Manual) Monocytes # (Manual) Eosinophils # (Manual) Basophils # (Manual) PT INR APTT ABG pH 7.470 H ABG pO2 74.0 L ABG HCO3 33.8 H ABG O2 Saturation ABG Base Excess 9.1 H ABG Hemoglobin 8.7 L Oxyhemoglobin 94.7 L Sodium 146 H Potassium 2.9 L* Chloride Carbon Dioxide BUN 25 H Creatinine Glucose 213 H POC Glucose Lactic Acid Calcium Ionized Calcium Phosphorus 1.00 L Magnesium Total Bilirubin AST ALT Alkaline Phosphatase Ammonia Total Creatine Kinase CK-MB (CK-2) CK-MB (CK-2) Rel Index Total Protein Albumin Urine WBC (Auto) Vancomycin Trough Salicylates Acetaminophen Plasma/Serum Alcohol Crossmatch 11/27/19 11/27/19 11/27/19 05:37 12:20 15:46 WBC RBC Hgb Hct MCH RDW Plt Count Lymph % (Auto) [place] % (Auto) [place] # Baso # Seg Neutrophils % Seg Neuts % (Manual) Lymphocytes % (Manual) Monocytes % (Manual) Seg Neutrophils # Seg Neutrophils # Man Lymphocytes # (Manual) Monocytes # (Manual) Eosinophils # (Manual) Basophils # (Manual) PT INR APTT ABG pH ABG pO2 ABG HCO3 ABG O2 Saturation ABG Base Excess ABG Hemoglobin Oxyhemoglobin Sodium 146 H Potassium 3.5 L D Chloride Carbon Dioxide BUN 24 H Creatinine 0.6 L Glucose 187 H POC Glucose 117 H 220 H Lactic Acid Calcium Ionized Calcium Phosphorus Magnesium Total Bilirubin AST ALT Alkaline Phosphatase Ammonia Total Creatine Kinase CK-MB (CK-2) CK-MB (CK-2) Rel Index Total Protein Albumin Urine WBC (Auto) Vancomycin Trough Salicylates Acetaminophen Plasma/Serum Alcohol Crossmatch 11/27/19 11/28/19 11/28/19 17:28 05:00 05:02 WBC RBC Hgb Hct MCH RDW Plt Count Lymph % (Auto) [place] % (Auto) [place] # Baso # Seg Neutrophils % Seg Neuts % (Manual) Lymphocytes % (Manual) Monocytes % (Manual) Seg Neutrophils # Seg Neutrophils # Man Lymphocytes # (Manual) Monocytes # (Manual) Eosinophils # (Manual) Basophils # (Manual) PT INR APTT ABG pH ABG pO2 72.4 L ABG HCO3 33.6 H ABG O2 Saturation 94.1 L ABG Base Excess 7.3 H ABG Hemoglobin Oxyhemoglobin 91.8 L Sodium 146 H Potassium 3.3 L Chloride Carbon Dioxide BUN 25 H Creatinine 0.6 L Glucose 176 H POC Glucose 198 H Lactic Acid Calcium Ionized Calcium Phosphorus Magnesium Total Bilirubin AST ALT Alkaline Phosphatase Ammonia Total Creatine Kinase CK-MB (CK-2) CK-MB (CK-2) Rel Index Total Protein Albumin Urine WBC (Auto) Vancomycin Trough Salicylates Acetaminophen Plasma/Serum Alcohol Crossmatch 11/28/19 11/28/19 11/29/19 05:02 18:55 10:43 WBC 15.2 H 19.0 H RBC 3.06 L 3.01 L Hgb 8.3 L 8.3 L Hct 27.0 L 26.4 L MCH 27 L RDW 19.0 H 19.7 H Plt Count 479 H 611 H Lymph % (Auto) [place] % (Auto) [place] # Baso # Seg Neutrophils % Seg Neuts % (Manual) 92.0 H Lymphocytes % (Manual) 2.0 L Monocytes % (Manual) Seg Neutrophils # Seg Neutrophils # Man 14.0 H Lymphocytes # (Manual) 0.3 L Monocytes # (Manual) Eosinophils # (Manual) Basophils # (Manual) PT INR APTT ABG pH ABG pO2 ABG HCO3 ABG O2 Saturation ABG Base Excess ABG Hemoglobin Oxyhemoglobin Sodium Potassium Chloride Carbon Dioxide BUN Creatinine Glucose POC Glucose 138 H Lactic Acid Calcium Ionized Calcium Phosphorus Magnesium Total Bilirubin AST ALT Alkaline Phosphatase Ammonia Total Creatine Kinase CK-MB (CK-2) CK-MB (CK-2) Rel Index Total Protein Albumin Urine WBC (Auto) Vancomycin Trough Salicylates Acetaminophen Plasma/Serum Alcohol Crossmatch 11/29/19 11/29/19 11/29/19 10:43 12:27 19:25 WBC RBC Hgb Hct MCH RDW Plt Count Lymph % (Auto) [place] % (Auto) [place] # Baso # Seg Neutrophils % Seg Neuts % (Manual) Lymphocytes % (Manual) Monocytes % (Manual) Seg Neutrophils # Seg Neutrophils # Man Lymphocytes # (Manual) Monocytes # (Manual) Eosinophils # (Manual) Basophils # (Manual) PT INR APTT ABG pH ABG pO2 ABG HCO3 ABG O2 Saturation ABG Base Excess ABG Hemoglobin Oxyhemoglobin Sodium Potassium 2.8 L* Chloride Carbon Dioxide BUN 20 H Creatinine 0.5 L Glucose 121 H POC Glucose 128 H 120 H Lactic Acid Calcium Ionized Calcium Phosphorus Magnesium Total Bilirubin AST ALT Alkaline Phosphatase Ammonia Total Creatine Kinase CK-MB (CK-2) CK-MB (CK-2) Rel Index Total Protein Albumin Urine WBC (Auto) Vancomycin Trough Salicylates Acetaminophen Plasma/Serum Alcohol Crossmatch 11/29/19 11/30/19 11/30/19 23:46 04:10 05:02 WBC RBC Hgb Hct MCH RDW Plt Count Lymph % (Auto) [place] % (Auto) [place] # Baso # Seg Neutrophils % Seg Neuts % (Manual) Lymphocytes % (Manual) Monocytes % (Manual) Seg Neutrophils # Seg Neutrophils # Man Lymphocytes # (Manual) Monocytes # (Manual) Eosinophils # (Manual) Basophils # (Manual) PT INR APTT ABG pH ABG pO2 76.3 L ABG HCO3 32.5 H ABG O2 Saturation ABG Base Excess 6.9 H ABG Hemoglobin 8.0 L Oxyhemoglobin 92.6 L Sodium Potassium Chloride Carbon Dioxide BUN Creatinine Glucose POC Glucose 116 H 128 H Lactic Acid Calcium Ionized Calcium Phosphorus Magnesium Total Bilirubin AST ALT Alkaline Phosphatase Ammonia Total Creatine Kinase CK-MB (CK-2) CK-MB (CK-2) Rel Index Total Protein Albumin Urine WBC (Auto) Vancomycin Trough Salicylates Acetaminophen Plasma/Serum Alcohol Crossmatch 11/30/19 11/30/19 11/30/19 05:25 05:25 12:59 WBC 18.4 H RBC 3.10 L Hgb 8.5 L Hct 27.5 L MCH 27 L RDW 20.9 H Plt Count 691 H Lymph % (Auto) 7.1 L [place] % (Auto) 7.7 H [place] # 1.4 H Baso # Seg Neutrophils % 83.4 H Seg Neuts % (Manual) Lymphocytes % (Manual) Monocytes % (Manual) Seg Neutrophils # 15.4 H Seg Neutrophils # Man Lymphocytes # (Manual) Monocytes # (Manual) Eosinophils # (Manual) Basophils # (Manual) PT INR APTT ABG pH ABG pO2 ABG HCO3 ABG O2 Saturation ABG Base Excess ABG Hemoglobin Oxyhemoglobin Sodium 146 H Potassium Chloride 107.2 H Carbon Dioxide BUN Creatinine 0.5 L Glucose 132 H POC Glucose 124 H Lactic Acid Calcium Ionized Calcium Phosphorus Magnesium Total Bilirubin AST 246 H ALT 274 H Alkaline Phosphatase 203 H Ammonia Total Creatine Kinase CK-MB (CK-2) CK-MB (CK-2) Rel Index Total Protein 5.4 L Albumin 2.9 L Urine WBC (Auto) Vancomycin Trough Salicylates Acetaminophen Plasma/Serum Alcohol Crossmatch 11/30/19 12/01/19 12/01/19 17:53 00:05 05:10 WBC RBC Hgb Hct MCH RDW Plt Count Lymph % (Auto) [place] % (Auto) [place] # Baso # Seg Neutrophils % Seg Neuts % (Manual) Lymphocytes % (Manual) Monocytes % (Manual) Seg Neutrophils # Seg Neutrophils # Man Lymphocytes # (Manual) Monocytes # (Manual) Eosinophils # (Manual) Basophils # (Manual) PT INR APTT ABG pH ABG pO2 ABG HCO3 ABG O2 Saturation ABG Base Excess ABG Hemoglobin Oxyhemoglobin Sodium Potassium Chloride Carbon Dioxide BUN Creatinine Glucose POC Glucose 113 H 143 H 145 H Lactic Acid Calcium Ionized Calcium Phosphorus Magnesium Total Bilirubin AST ALT Alkaline Phosphatase Ammonia Total Creatine Kinase CK-MB (CK-2) CK-MB (CK-2) Rel Index Total Protein Albumin Urine WBC (Auto) Vancomycin Trough Salicylates Acetaminophen Plasma/Serum Alcohol Crossmatch 12/01/19 12/01/19 12/01/19 05:33 08:23 08:23 WBC 22.7 H RBC 2.88 L Hgb 7.9 L Hct 25.2 L MCH 27 L RDW 21.0 H Plt Count 732 H Lymph % (Auto) [place] % (Auto) [place] # Baso # Seg Neutrophils % Seg Neuts % (Manual) 91.0 H Lymphocytes % (Manual) 3.0 L Monocytes % (Manual) Seg Neutrophils # Seg Neutrophils # Man 20.7 H Lymphocytes # (Manual) 0.7 L Monocytes # (Manual) 1.1 H Eosinophils # (Manual) Basophils # (Manual) PT INR APTT ABG pH ABG pO2 68.6 L ABG HCO3 34.1 H ABG O2 Saturation ABG Base Excess 9.0 H ABG Hemoglobin 6.5 L Oxyhemoglobin 94.7 L Sodium Potassium Chloride Carbon Dioxide BUN Creatinine 0.5 L Glucose 125 H POC Glucose Lactic Acid Calcium Ionized Calcium Phosphorus Magnesium Total Bilirubin AST ALT Alkaline Phosphatase Ammonia Total Creatine Kinase CK-MB (CK-2) CK-MB (CK-2) Rel Index Total Protein Albumin Urine WBC (Auto) Vancomycin Trough Salicylates Acetaminophen Plasma/Serum Alcohol Crossmatch 12/01/19 12/01/19 12/01/19 13:21 17:54 20:59 WBC RBC Hgb Hct MCH RDW Plt Count Lymph % (Auto) [place] % (Auto) [place] # Baso # Seg Neutrophils % Seg Neuts % (Manual) Lymphocytes % (Manual) Monocytes % (Manual) Seg Neutrophils # Seg Neutrophils # Man Lymphocytes # (Manual) Monocytes # (Manual) Eosinophils # (Manual) Basophils # (Manual) PT INR APTT ABG pH ABG pO2 78.3 L ABG HCO3 33.8 H ABG O2 Saturation 94.9 L ABG Base Excess 7.9 H ABG Hemoglobin 11.5 L Oxyhemoglobin 92.3 L Sodium Potassium Chloride Carbon Dioxide BUN Creatinine Glucose POC Glucose 111 H 115 H Lactic Acid Calcium Ionized Calcium Phosphorus Magnesium Total Bilirubin AST ALT Alkaline Phosphatase Ammonia Total Creatine Kinase CK-MB (CK-2) CK-MB (CK-2) Rel Index Total Protein Albumin Urine WBC (Auto) Vancomycin Trough Salicylates Acetaminophen Plasma/Serum Alcohol Crossmatch 12/02/19 12/03/19 12/04/19 12:55 20:00 04:26 WBC 15.2 H RBC 2.69 L Hgb 7.4 L Hct 23.6 L MCH 27 L RDW 19.9 H Plt Count 838 H Lymph % (Auto) [place] % (Auto) [place] # Baso # Seg Neutrophils % Seg Neuts % (Manual) Lymphocytes % (Manual) Monocytes % (Manual) Seg Neutrophils # Seg Neutrophils # Man Lymphocytes # (Manual) Monocytes # (Manual) Eosinophils # (Manual) Basophils # (Manual) PT INR APTT ABG pH ABG pO2 68.3 L ABG HCO3 33.5 H ABG O2 Saturation 93.5 L ABG Base Excess 8.4 H ABG Hemoglobin 7.3 L Oxyhemoglobin 90.9 L Sodium Potassium Chloride Carbon Dioxide BUN Creatinine Glucose POC Glucose 107 H Lactic Acid Calcium Ionized Calcium Phosphorus Magnesium Total Bilirubin AST ALT Alkaline Phosphatase Ammonia Total Creatine Kinase CK-MB (CK-2) CK-MB (CK-2) Rel Index Total Protein Albumin Urine WBC (Auto) Vancomycin Trough Salicylates Acetaminophen Plasma/Serum Alcohol Crossmatch 12/04/19 12/04/19 12/04/19 04:26 07:45 12:02 WBC 15.9 H RBC 2.88 L Hgb 7.9 L Hct 25.1 L MCH RDW 20.4 H Plt Count 839 H Lymph % (Auto) 11.3 L [place] % (Auto) 15.2 H [place] # 2.4 H Baso # Seg Neutrophils % 72.4 H Seg Neuts % (Manual) Lymphocytes % (Manual) Monocytes % (Manual) Seg Neutrophils # 11.5 H Seg Neutrophils # Man Lymphocytes # (Manual) Monocytes # (Manual) Eosinophils # (Manual) Basophils # (Manual) PT INR APTT ABG pH ABG pO2 ABG HCO3 ABG O2 Saturation ABG Base Excess ABG Hemoglobin Oxyhemoglobin Sodium Potassium Chloride 96.5 L Carbon Dioxide BUN 21 H Creatinine 0.6 L Glucose 107 H POC Glucose 138 H Lactic Acid Calcium Ionized Calcium Phosphorus Magnesium Total Bilirubin AST ALT Alkaline Phosphatase Ammonia Total Creatine Kinase CK-MB (CK-2) CK-MB (CK-2) Rel Index Total Protein Albumin Urine WBC (Auto) Vancomycin Trough Salicylates Acetaminophen Plasma/Serum Alcohol Crossmatch 12/04/19 12/05/19 12/05/19 18:16 11:55 18:36 WBC RBC Hgb Hct MCH RDW Plt Count Lymph % (Auto) [place] % (Auto) [place] # Baso # Seg Neutrophils % Seg Neuts % (Manual) Lymphocytes % (Manual) Monocytes % (Manual) Seg Neutrophils # Seg Neutrophils # Man Lymphocytes # (Manual) Monocytes # (Manual) Eosinophils # (Manual) Basophils # (Manual) PT INR APTT ABG pH ABG pO2 ABG HCO3 ABG O2 Saturation ABG Base Excess ABG Hemoglobin Oxyhemoglobin Sodium Potassium Chloride Carbon Dioxide BUN Creatinine Glucose POC Glucose 135 H 125 H 135 H Lactic Acid Calcium Ionized Calcium Phosphorus Magnesium Total Bilirubin AST ALT Alkaline Phosphatase Ammonia Total Creatine Kinase CK-MB (CK-2) CK-MB (CK-2) Rel Index Total Protein Albumin Urine WBC (Auto) Vancomycin Trough Salicylates Acetaminophen Plasma/Serum Alcohol Crossmatch 12/05/19 12/06/19 12/06/19 23:30 04:14 05:43 WBC RBC Hgb Hct MCH RDW Plt Count Lymph % (Auto) [place] % (Auto) [place] # Baso # Seg Neutrophils % Seg Neuts % (Manual) Lymphocytes % (Manual) Monocytes % (Manual) Seg Neutrophils # Seg Neutrophils # Man Lymphocytes # (Manual) Monocytes # (Manual) Eosinophils # (Manual) Basophils # (Manual) PT INR APTT ABG pH ABG pO2 ABG HCO3 ABG O2 Saturation ABG Base Excess ABG Hemoglobin Oxyhemoglobin Sodium Potassium 5.6 H Chloride 95.0 L Carbon Dioxide BUN 48 H Creatinine 1.3 H D Glucose POC Glucose 126 H 121 H Lactic Acid Calcium Ionized Calcium Phosphorus Magnesium Total Bilirubin AST 89 H ALT 98 H Alkaline Phosphatase 476 H Ammonia Total Creatine Kinase CK-MB (CK-2) CK-MB (CK-2) Rel Index Total Protein Albumin 2.8 L Urine WBC (Auto) Vancomycin Trough Salicylates Acetaminophen Plasma/Serum Alcohol Crossmatch 12/06/19 12/06/19 12/07/19 10:39 14:34 00:19 WBC 17.3 H RBC 2.60 L Hgb 7.1 L Hct 22.7 L MCH 27 L RDW 20.1 H Plt Count 832 H Lymph % (Auto) [place] % (Auto) [place] # Baso # Seg Neutrophils % Seg Neuts % (Manual) Lymphocytes % (Manual) Monocytes % (Manual) Seg Neutrophils # Seg Neutrophils # Man Lymphocytes # (Manual) Monocytes # (Manual) Eosinophils # (Manual) Basophils # (Manual) PT INR APTT ABG pH ABG pO2 ABG HCO3 ABG O2 Saturation ABG Base Excess ABG Hemoglobin Oxyhemoglobin Sodium Potassium Chloride Carbon Dioxide BUN Creatinine Glucose POC Glucose 128 H 136 H Lactic Acid Calcium Ionized Calcium Phosphorus Magnesium Total Bilirubin AST ALT Alkaline Phosphatase Ammonia Total Creatine Kinase CK-MB (CK-2) CK-MB (CK-2) Rel Index Total Protein Albumin Urine WBC (Auto) Vancomycin Trough Salicylates Acetaminophen Plasma/Serum Alcohol Crossmatch 12/07/19 12/07/19 12/07/19 03:44 03:44 05:53 WBC 16.2 H RBC 2.56 L Hgb 7.1 L Hct 22.3 L MCH RDW 19.4 H Plt Count 782 H Lymph % (Auto) [place] % (Auto) [place] # Baso # Seg Neutrophils % Seg Neuts % (Manual) Lymphocytes % (Manual) Monocytes % (Manual) Seg Neutrophils # Seg Neutrophils # Man Lymphocytes # (Manual) Monocytes # (Manual) Eosinophils # (Manual) Basophils # (Manual) PT INR APTT ABG pH ABG pO2 ABG HCO3 ABG O2 Saturation ABG Base Excess ABG Hemoglobin Oxyhemoglobin Sodium Potassium Chloride 95.6 L Carbon Dioxide BUN 56 H Creatinine 1.4 H Glucose 120 H POC Glucose 128 H Lactic Acid Calcium 10.3 H Ionized Calcium Phosphorus Magnesium Total Bilirubin AST ALT Alkaline Phosphatase Ammonia Total Creatine Kinase CK-MB (CK-2) CK-MB (CK-2) Rel Index Total Protein Albumin Urine WBC (Auto) Vancomycin Trough Salicylates Acetaminophen Plasma/Serum Alcohol Crossmatch 12/07/19 12/07/19 12/08/19 12:54 23:47 00:20 WBC RBC Hgb Hct MCH RDW Plt Count Lymph % (Auto) [place] % (Auto) [place] # Baso # Seg Neutrophils % Seg Neuts % (Manual) Lymphocytes % (Manual) Monocytes % (Manual) Seg Neutrophils # Seg Neutrophils # Man Lymphocytes # (Manual) Monocytes # (Manual) Eosinophils # (Manual) Basophils # (Manual) PT INR APTT ABG pH ABG pO2 ABG HCO3 ABG O2 Saturation ABG Base Excess ABG Hemoglobin Oxyhemoglobin Sodium Potassium Chloride Carbon Dioxide BUN Creatinine Glucose POC Glucose 128 H 130 H 124 H Lactic Acid Calcium Ionized Calcium Phosphorus Magnesium Total Bilirubin AST ALT Alkaline Phosphatase Ammonia Total Creatine Kinase CK-MB (CK-2) CK-MB (CK-2) Rel Index Total Protein Albumin Urine WBC (Auto) Vancomycin Trough Salicylates Acetaminophen Plasma/Serum Alcohol Crossmatch 12/08/19 12/08/19 12/08/19 06:38 12:04 18:26 WBC RBC Hgb Hct MCH RDW Plt Count Lymph % (Auto) [place] % (Auto) [place] # Baso # Seg Neutrophils % Seg Neuts % (Manual) Lymphocytes % (Manual) Monocytes % (Manual) Seg Neutrophils # Seg Neutrophils # Man Lymphocytes # (Manual) Monocytes # (Manual) Eosinophils # (Manual) Basophils # (Manual) PT INR APTT ABG pH ABG pO2 ABG HCO3 ABG O2 Saturation ABG Base Excess ABG Hemoglobin Oxyhemoglobin Sodium Potassium Chloride Carbon Dioxide BUN Creatinine Glucose POC Glucose 137 H 129 H 150 H Lactic Acid Calcium Ionized Calcium Phosphorus Magnesium Total Bilirubin AST ALT Alkaline Phosphatase Ammonia Total Creatine Kinase CK-MB (CK-2) CK-MB (CK-2) Rel Index Total Protein Albumin Urine WBC (Auto) Vancomycin Trough Salicylates Acetaminophen Plasma/Serum Alcohol Crossmatch 12/09/19 12/09/19 12/09/19 00:56 05:34 06:13 WBC RBC Hgb Hct MCH RDW Plt Count Lymph % (Auto) [place] % (Auto) [place] # Baso # Seg Neutrophils % Seg Neuts % (Manual) Lymphocytes % (Manual) Monocytes % (Manual) Seg Neutrophils # Seg Neutrophils # Man Lymphocytes # (Manual) Monocytes # (Manual) Eosinophils # (Manual) Basophils # (Manual) PT INR APTT ABG pH ABG pO2 ABG HCO3 ABG O2 Saturation ABG Base Excess ABG Hemoglobin Oxyhemoglobin Sodium 146 H Potassium Chloride Carbon Dioxide BUN 66 H Creatinine 1.9 H Glucose 116 H POC Glucose 130 H 130 H Lactic Acid Calcium Ionized Calcium Phosphorus Magnesium Total Bilirubin AST ALT Alkaline Phosphatase Ammonia Total Creatine Kinase CK-MB (CK-2) CK-MB (CK-2) Rel Index Total Protein Albumin Urine WBC (Auto) Vancomycin Trough Salicylates Acetaminophen Plasma/Serum Alcohol Crossmatch 12/09/19 12/09/19 12/10/19 11:52 17:50 00:14 WBC RBC Hgb Hct MCH RDW Plt Count Lymph % (Auto) [place] % (Auto) [place] # Baso # Seg Neutrophils % Seg Neuts % (Manual) Lymphocytes % (Manual) Monocytes % (Manual) Seg Neutrophils # Seg Neutrophils # Man Lymphocytes # (Manual) Monocytes # (Manual) Eosinophils # (Manual) Basophils # (Manual) PT INR APTT ABG pH ABG pO2 ABG HCO3 ABG O2 Saturation ABG Base Excess ABG Hemoglobin Oxyhemoglobin Sodium Potassium Chloride Carbon Dioxide BUN Creatinine Glucose POC Glucose 135 H 120 H 116 H Lactic Acid Calcium Ionized Calcium Phosphorus Magnesium Total Bilirubin AST ALT Alkaline Phosphatase Ammonia Total Creatine Kinase CK-MB (CK-2) CK-MB (CK-2) Rel Index Total Protein Albumin Urine WBC (Auto) Vancomycin Trough Salicylates Acetaminophen Plasma/Serum Alcohol Crossmatch 12/10/19 12/10/19 12/10/19 05:38 11:38 17:34 WBC RBC Hgb Hct MCH RDW Plt Count Lymph % (Auto) [place] % (Auto) [place] # Baso # Seg Neutrophils % Seg Neuts % (Manual) Lymphocytes % (Manual) Monocytes % (Manual) Seg Neutrophils # Seg Neutrophils # Man Lymphocytes # (Manual) Monocytes # (Manual) Eosinophils # (Manual) Basophils # (Manual) PT INR APTT ABG pH ABG pO2 ABG HCO3 ABG O2 Saturation ABG Base Excess ABG Hemoglobin Oxyhemoglobin Sodium Potassium Chloride Carbon Dioxide BUN Creatinine Glucose POC Glucose 115 H 112 H 130 H Lactic Acid Calcium Ionized Calcium Phosphorus Magnesium Total Bilirubin AST ALT Alkaline Phosphatase Ammonia Total Creatine Kinase CK-MB (CK-2) CK-MB (CK-2) Rel Index Total Protein Albumin Urine WBC (Auto) Vancomycin Trough Salicylates Acetaminophen Plasma/Serum Alcohol Crossmatch 12/11/19 12/11/19 12/11/19 00:20 05:31 12:22 WBC RBC Hgb Hct MCH RDW Plt Count Lymph % (Auto) [place] % (Auto) [place] # Baso # Seg Neutrophils % Seg Neuts % (Manual) Lymphocytes % (Manual) Monocytes % (Manual) Seg Neutrophils # Seg Neutrophils # Man Lymphocytes # (Manual) Monocytes # (Manual) Eosinophils # (Manual) Basophils # (Manual) PT INR APTT ABG pH ABG pO2 ABG HCO3 ABG O2 Saturation ABG Base Excess ABG Hemoglobin Oxyhemoglobin Sodium Potassium Chloride Carbon Dioxide BUN Creatinine Glucose POC Glucose 124 H 132 H 128 H Lactic Acid Calcium Ionized Calcium Phosphorus Magnesium Total Bilirubin AST ALT Alkaline Phosphatase Ammonia Total Creatine Kinase CK-MB (CK-2) CK-MB (CK-2) Rel Index Total Protein Albumin Urine WBC (Auto) Vancomycin Trough Salicylates Acetaminophen Plasma/Serum Alcohol Crossmatch 12/11/19 12/11/19 12/12/19 18:04 23:42 03:51 WBC RBC Hgb Hct MCH RDW Plt Count Lymph % (Auto) [place] % (Auto) [place] # Baso # Seg Neutrophils % Seg Neuts % (Manual) Lymphocytes % (Manual) Monocytes % (Manual) Seg Neutrophils # Seg Neutrophils # Man Lymphocytes # (Manual) Monocytes # (Manual) Eosinophils # (Manual) Basophils # (Manual) PT INR APTT ABG pH ABG pO2 ABG HCO3 ABG O2 Saturation ABG Base Excess ABG Hemoglobin Oxyhemoglobin Sodium 149 H Potassium Chloride Carbon Dioxide 20 L D BUN 77 H Creatinine 2.8 H Glucose POC Glucose 133 H 154 H Lactic Acid Calcium Ionized Calcium Phosphorus Magnesium Total Bilirubin AST ALT Alkaline Phosphatase Ammonia Total Creatine Kinase CK-MB (CK-2) CK-MB (CK-2) Rel Index Total Protein Albumin Urine WBC (Auto) Vancomycin Trough Salicylates Acetaminophen Plasma/Serum Alcohol Crossmatch 12/12/19 12/12/19 12/12/19 05:18 05:26 10:30 WBC 18.0 H RBC 2.51 L Hgb 6.8 L Hct 22.0 L MCH 27 L RDW 19.9 H Plt Count 582 H Lymph % (Auto) [place] % (Auto) [place] # Baso # Seg Neutrophils % Seg Neuts % (Manual) Lymphocytes % (Manual) Monocytes % (Manual) Seg Neutrophils # Seg Neutrophils # Man Lymphocytes # (Manual) Monocytes # (Manual) Eosinophils # (Manual) Basophils # (Manual) PT INR APTT ABG pH ABG pO2 ABG HCO3 ABG O2 Saturation ABG Base Excess ABG Hemoglobin Oxyhemoglobin Sodium Potassium Chloride Carbon Dioxide BUN Creatinine Glucose POC Glucose 135 H Lactic Acid Calcium Ionized Calcium Phosphorus Magnesium Total Bilirubin AST ALT Alkaline Phosphatase Ammonia Total Creatine Kinase CK-MB (CK-2) CK-MB (CK-2) Rel Index Total Protein Albumin Urine WBC (Auto) Vancomycin Trough Salicylates Acetaminophen Plasma/Serum Alcohol Crossmatch See Detail 12/12/19 12/12/19 12/12/19 11:44 18:10 23:21 WBC RBC Hgb Hct MCH RDW Plt Count Lymph % (Auto) [place] % (Auto) [place] # Baso # Seg Neutrophils % Seg Neuts % (Manual) Lymphocytes % (Manual) Monocytes % (Manual) Seg Neutrophils # Seg Neutrophils # Man Lymphocytes # (Manual) Monocytes # (Manual) Eosinophils # (Manual) Basophils # (Manual) PT INR APTT ABG pH ABG pO2 ABG HCO3 ABG O2 Saturation ABG Base Excess ABG Hemoglobin Oxyhemoglobin Sodium Potassium Chloride Carbon Dioxide BUN Creatinine Glucose POC Glucose 108 H 107 H 126 H Lactic Acid Calcium Ionized Calcium Phosphorus Magnesium Total Bilirubin AST ALT Alkaline Phosphatase Ammonia Total Creatine Kinase CK-MB (CK-2) CK-MB (CK-2) Rel Index Total Protein Albumin Urine WBC (Auto) Vancomycin Trough Salicylates Acetaminophen Plasma/Serum Alcohol Crossmatch 12/13/19 12/13/19 12/13/19 05:41 07:48 07:48 WBC 38.3 H RBC 2.37 L Hgb 6.3 L Hct 20.9 L MCH 27 L RDW 20.2 H Plt Count 546 H Lymph % (Auto) [place] % (Auto) [place] # Baso # Seg Neutrophils % Seg Neuts % (Manual) 93.0 H Lymphocytes % (Manual) 1.0 L Monocytes % (Manual) Seg Neutrophils # Seg Neutrophils # Man 35.6 H Lymphocytes # (Manual) 0.4 L Monocytes # (Manual) Eosinophils # (Manual) Basophils # (Manual) 0.4 H PT INR APTT ABG pH ABG pO2 ABG HCO3 ABG O2 Saturation ABG Base Excess ABG Hemoglobin Oxyhemoglobin Sodium 152 H Potassium 3.1 L D Chloride 111.9 H Carbon Dioxide 21 L BUN 53 H Creatinine 1.9 H Glucose 141 H POC Glucose 128 H Lactic Acid Calcium Ionized Calcium Phosphorus Magnesium Total Bilirubin AST ALT Alkaline Phosphatase 316 H Ammonia Total Creatine Kinase CK-MB (CK-2) CK-MB (CK-2) Rel Index Total Protein Albumin 2.4 L Urine WBC (Auto) Vancomycin Trough Salicylates Acetaminophen Plasma/Serum Alcohol Crossmatch 12/13/19 12/13/19 12/14/19 18:17 23:19 05:36 WBC RBC Hgb Hct MCH RDW Plt Count Lymph % (Auto) [place] % (Auto) [place] # Baso # Seg Neutrophils % Seg Neuts % (Manual) Lymphocytes % (Manual) Monocytes % (Manual) Seg Neutrophils # Seg Neutrophils # Man Lymphocytes # (Manual) Monocytes # (Manual) Eosinophils # (Manual) Basophils # (Manual) PT INR APTT ABG pH ABG pO2 ABG HCO3 ABG O2 Saturation ABG Base Excess ABG Hemoglobin Oxyhemoglobin Sodium Potassium Chloride Carbon Dioxide BUN Creatinine Glucose POC Glucose 141 H 158 H 182 H Lactic Acid Calcium Ionized Calcium Phosphorus Magnesium Total Bilirubin AST ALT Alkaline Phosphatase Ammonia Total Creatine Kinase CK-MB (CK-2) CK-MB (CK-2) Rel Index Total Protein Albumin Urine WBC (Auto) Vancomycin Trough Salicylates Acetaminophen Plasma/Serum Alcohol Crossmatch 12/14/19 12/14/19 12/14/19 08:48 08:48 10:31 WBC 33.3 H RBC 2.70 L Hgb 7.9 L 8.0 L Hct 25.3 L 24.0 L MCH RDW 19.2 H Plt Count 476 H Lymph % (Auto) [place] % (Auto) [place] # Baso # Seg Neutrophils % Seg Neuts % (Manual) Lymphocytes % (Manual) Monocytes % (Manual) Seg Neutrophils # Seg Neutrophils # Man Lymphocytes # (Manual) Monocytes # (Manual) Eosinophils # (Manual) Basophils # (Manual) PT INR APTT ABG pH ABG pO2 ABG HCO3 ABG O2 Saturation ABG Base Excess ABG Hemoglobin Oxyhemoglobin Sodium 153 H Potassium 2.5 L* Chloride 114.9 H Carbon Dioxide 20 L BUN 38 H Creatinine 1.4 H Glucose 177 H POC Glucose Lactic Acid Calcium Ionized Calcium Phosphorus Magnesium Total Bilirubin AST ALT Alkaline Phosphatase Ammonia Total Creatine Kinase CK-MB (CK-2) CK-MB (CK-2) Rel Index Total Protein Albumin Urine WBC (Auto) Vancomycin Trough Salicylates Acetaminophen Plasma/Serum Alcohol Crossmatch 12/14/19 12/14/19 12/14/19 12:57 16:15 17:50 WBC RBC Hgb Hct MCH RDW Plt Count Lymph % (Auto) [place] % (Auto) [place] # Baso # Seg Neutrophils % Seg Neuts % (Manual) Lymphocytes % (Manual) Monocytes % (Manual) Seg Neutrophils # Seg Neutrophils # Man Lymphocytes # (Manual) Monocytes # (Manual) Eosinophils # (Manual) Basophils # (Manual) PT INR APTT ABG pH ABG pO2 73.6 L ABG HCO3 ABG O2 Saturation ABG Base Excess ABG Hemoglobin 7.6 L Oxyhemoglobin 94.0 L Sodium Potassium Chloride Carbon Dioxide BUN Creatinine Glucose POC Glucose 174 H 150 H Lactic Acid Calcium Ionized Calcium Phosphorus Magnesium Total Bilirubin AST ALT Alkaline Phosphatase Ammonia Total Creatine Kinase CK-MB (CK-2) CK-MB (CK-2) Rel Index Total Protein Albumin Urine WBC (Auto) Vancomycin Trough Salicylates Acetaminophen Plasma/Serum Alcohol Crossmatch 12/15/19 12/15/19 12/15/19 00:28 05:27 07:23 WBC 30.0 H RBC 3.11 L Hgb 8.6 L Hct 27.7 L MCH RDW 20.0 H Plt Count 473 H Lymph % (Auto) [place] % (Auto) [place] # Baso # Seg Neutrophils % Seg Neuts % (Manual) Lymphocytes % (Manual) Monocytes % (Manual) Seg Neutrophils # Seg Neutrophils # Man Lymphocytes # (Manual) Monocytes # (Manual) Eosinophils # (Manual) Basophils # (Manual) PT INR APTT ABG pH ABG pO2 ABG HCO3 ABG O2 Saturation ABG Base Excess ABG Hemoglobin Oxyhemoglobin Sodium Potassium Chloride Carbon Dioxide BUN Creatinine Glucose POC Glucose 167 H 148 H Lactic Acid Calcium Ionized Calcium Phosphorus Magnesium Total Bilirubin AST ALT Alkaline Phosphatase Ammonia Total Creatine Kinase CK-MB (CK-2) CK-MB (CK-2) Rel Index Total Protein Albumin Urine WBC (Auto) Vancomycin Trough Salicylates Acetaminophen Plasma/Serum Alcohol Crossmatch 12/15/19 12/15/19 12/15/19 07:23 12:21 17:41 WBC RBC Hgb Hct MCH RDW Plt Count Lymph % (Auto) [place] % (Auto) [place] # Baso # Seg Neutrophils % Seg Neuts % (Manual) Lymphocytes % (Manual) Monocytes % (Manual) Seg Neutrophils # Seg Neutrophils # Man Lymphocytes # (Manual) Monocytes # (Manual) Eosinophils # (Manual) Basophils # (Manual) PT INR APTT ABG pH ABG pO2 ABG HCO3 ABG O2 Saturation ABG Base Excess ABG Hemoglobin Oxyhemoglobin Sodium 147 H Potassium 3.5 L D Chloride 111.2 H Carbon Dioxide 19 L BUN 29 H Creatinine Glucose 126 H POC Glucose 154 H 144 H Lactic Acid Calcium Ionized Calcium Phosphorus Magnesium Total Bilirubin AST ALT Alkaline Phosphatase Ammonia Total Creatine Kinase CK-MB (CK-2) CK-MB (CK-2) Rel Index Total Protein Albumin Urine WBC (Auto) Vancomycin Trough Salicylates Acetaminophen Plasma/Serum Alcohol Crossmatch 12/16/19 12/16/19 12/16/19 00:22 05:30 05:44 WBC 30.8 H RBC 2.58 L Hgb 7.1 L Hct 22.7 L MCH RDW 19.6 H Plt Count 451 H Lymph % (Auto) [place] % (Auto) [place] # Baso # Seg Neutrophils % Seg Neuts % (Manual) Lymphocytes % (Manual) Monocytes % (Manual) Seg Neutrophils # Seg Neutrophils # Man Lymphocytes # (Manual) Monocytes # (Manual) Eosinophils # (Manual) Basophils # (Manual) PT INR APTT ABG pH ABG pO2 ABG HCO3 ABG O2 Saturation ABG Base Excess ABG Hemoglobin Oxyhemoglobin Sodium Potassium Chloride Carbon Dioxide BUN Creatinine Glucose POC Glucose 139 H 126 H Lactic Acid Calcium Ionized Calcium Phosphorus Magnesium Total Bilirubin AST ALT Alkaline Phosphatase Ammonia Total Creatine Kinase CK-MB (CK-2) CK-MB (CK-2) Rel Index Total Protein Albumin Urine WBC (Auto) Vancomycin Trough Salicylates Acetaminophen Plasma/Serum Alcohol Crossmatch 12/16/19 12/16/19 12/16/19 05:44 11:48 17:37 WBC RBC Hgb Hct MCH RDW Plt Count Lymph % (Auto) [place] % (Auto) [place] # Baso # Seg Neutrophils % Seg Neuts % (Manual) Lymphocytes % (Manual) Monocytes % (Manual) Seg Neutrophils # Seg Neutrophils # Man Lymphocytes # (Manual) Monocytes # (Manual) Eosinophils # (Manual) Basophils # (Manual) PT INR APTT ABG pH ABG pO2 ABG HCO3 ABG O2 Saturation ABG Base Excess ABG Hemoglobin Oxyhemoglobin Sodium Potassium 3.4 L Chloride 109.2 H Carbon Dioxide 19 L BUN 27 H Creatinine Glucose 124 H POC Glucose 125 H 148 H Lactic Acid Calcium Ionized Calcium Phosphorus Magnesium Total Bilirubin AST ALT Alkaline Phosphatase Ammonia Total Creatine Kinase CK-MB (CK-2) CK-MB (CK-2) Rel Index Total Protein Albumin Urine WBC (Auto) Vancomycin Trough Salicylates Acetaminophen Plasma/Serum Alcohol Crossmatch 12/16/19 12/17/19 12/17/19 23:43 05:28 12:47 WBC RBC Hgb Hct MCH RDW Plt Count Lymph % (Auto) [place] % (Auto) [place] # Baso # Seg Neutrophils % Seg Neuts % (Manual) Lymphocytes % (Manual) Monocytes % (Manual) Seg Neutrophils # Seg Neutrophils # Man Lymphocytes # (Manual) Monocytes # (Manual) Eosinophils # (Manual) Basophils # (Manual) PT INR APTT ABG pH ABG pO2 ABG HCO3 ABG O2 Saturation ABG Base Excess ABG Hemoglobin Oxyhemoglobin Sodium Potassium Chloride Carbon Dioxide BUN Creatinine Glucose POC Glucose 142 H 140 H 125 H Lactic Acid Calcium Ionized Calcium Phosphorus Magnesium Total Bilirubin AST ALT Alkaline Phosphatase Ammonia Total Creatine Kinase CK-MB (CK-2) CK-MB (CK-2) Rel Index Total Protein Albumin Urine WBC (Auto) Vancomycin Trough Salicylates Acetaminophen Plasma/Serum Alcohol Crossmatch 12/17/19 12/17/19 12/17/19 17:05 18:00 Unknown WBC RBC Hgb Hct MCH RDW Plt Count Lymph % (Auto) [place] % (Auto) [place] # Baso # Seg Neutrophils % Seg Neuts % (Manual) Lymphocytes % (Manual) Monocytes % (Manual) Seg Neutrophils # Seg Neutrophils # Man Lymphocytes # (Manual) Monocytes # (Manual) Eosinophils # (Manual) Basophils # (Manual) PT INR APTT ABG pH ABG pO2 68.1 L ABG HCO3 ABG O2 Saturation 93.7 L ABG Base Excess ABG Hemoglobin 5.0 L Oxyhemoglobin 91.7 L Sodium Potassium Chloride Carbon Dioxide BUN Creatinine Glucose POC Glucose 140 H Lactic Acid Calcium Ionized Calcium Phosphorus Magnesium Total Bilirubin AST ALT Alkaline Phosphatase Ammonia Total Creatine Kinase CK-MB (CK-2) CK-MB (CK-2) Rel Index Total Protein Albumin Urine WBC (Auto) Vancomycin Trough Salicylates Acetaminophen Plasma/Serum Alcohol Crossmatch 12/18/19 12/18/19 12/18/19 00:16 04:53 04:53 WBC 28.6 H RBC 2.27 L Hgb 6.3 L Hct 19.5 L* MCH RDW 20.0 H Plt Count 497 H Lymph % (Auto) [place] % (Auto) [place] # Baso # Seg Neutrophils % Seg Neuts % (Manual) Lymphocytes % (Manual) Monocytes % (Manual) Seg Neutrophils # Seg Neutrophils # Man Lymphocytes # (Manual) Monocytes # (Manual) Eosinophils # (Manual) Basophils # (Manual) PT INR APTT ABG pH ABG pO2 ABG HCO3 ABG O2 Saturation ABG Base Excess ABG Hemoglobin Oxyhemoglobin Sodium Potassium Chloride 107.9 H Carbon Dioxide 20 L BUN 27 H Creatinine 0.6 L Glucose 116 H POC Glucose 123 H Lactic Acid Calcium Ionized Calcium Phosphorus Magnesium Total Bilirubin AST ALT Alkaline Phosphatase Ammonia Total Creatine Kinase CK-MB (CK-2) CK-MB (CK-2) Rel Index Total Protein Albumin Urine WBC (Auto) Vancomycin Trough Salicylates Acetaminophen Plasma/Serum Alcohol Crossmatch 12/18/19 12/18/19 12/18/19 06:38 11:22 12:08 WBC RBC Hgb Hct MCH RDW Plt Count Lymph % (Auto) [place] % (Auto) [place] # Baso # Seg Neutrophils % Seg Neuts % (Manual) Lymphocytes % (Manual) Monocytes % (Manual) Seg Neutrophils # Seg Neutrophils # Man Lymphocytes # (Manual) Monocytes # (Manual) Eosinophils # (Manual) Basophils # (Manual) PT INR APTT ABG pH ABG pO2 ABG HCO3 ABG O2 Saturation ABG Base Excess ABG Hemoglobin Oxyhemoglobin Sodium Potassium Chloride Carbon Dioxide BUN Creatinine Glucose POC Glucose 120 H 127 H Lactic Acid Calcium Ionized Calcium Phosphorus Magnesium Total Bilirubin AST ALT Alkaline Phosphatase Ammonia Total Creatine Kinase CK-MB (CK-2) CK-MB (CK-2) Rel Index Total Protein Albumin Urine WBC (Auto) Vancomycin Trough Salicylates Acetaminophen Plasma/Serum Alcohol Crossmatch See Detail 12/18/19 12/18/19 12/18/19 14:05 17:49 23:53 WBC RBC Hgb Hct MCH RDW Plt Count Lymph % (Auto) [place] % (Auto) [place] # Baso # Seg Neutrophils % Seg Neuts % (Manual) Lymphocytes % (Manual) Monocytes % (Manual) Seg Neutrophils # Seg Neutrophils # Man Lymphocytes # (Manual) Monocytes # (Manual) Eosinophils # (Manual) Basophils # (Manual) PT INR APTT ABG pH 7.267 L ABG pO2 69.8 L ABG HCO3 ABG O2 Saturation 88.4 L ABG Base Excess ABG Hemoglobin 7.1 L Oxyhemoglobin 86.4 L Sodium Potassium Chloride Carbon Dioxide BUN Creatinine Glucose POC Glucose 157 H 128 H Lactic Acid Calcium Ionized Calcium Phosphorus Magnesium Total Bilirubin AST ALT Alkaline Phosphatase Ammonia Total Creatine Kinase CK-MB (CK-2) CK-MB (CK-2) Rel Index Total Protein Albumin Urine WBC (Auto) Vancomycin Trough Salicylates Acetaminophen Plasma/Serum Alcohol Crossmatch 12/19/19 12/19/19 12/19/19 03:37 03:37 05:25 WBC 31.3 H RBC 2.60 L Hgb 7.6 L Hct 23.0 L MCH RDW 19.4 H Plt Count 530 H Lymph % (Auto) [place] % (Auto) [place] # Baso # Seg Neutrophils % Seg Neuts % (Manual) Lymphocytes % (Manual) Monocytes % (Manual) Seg Neutrophils # Seg Neutrophils # Man Lymphocytes # (Manual) Monocytes # (Manual) Eosinophils # (Manual) Basophils # (Manual) PT INR APTT ABG pH ABG pO2 ABG HCO3 ABG O2 Saturation ABG Base Excess ABG Hemoglobin Oxyhemoglobin Sodium Potassium Chloride Carbon Dioxide 18 L BUN 36 H Creatinine Glucose 111 H POC Glucose 123 H Lactic Acid Calcium Ionized Calcium Phosphorus Magnesium Total Bilirubin AST ALT Alkaline Phosphatase Ammonia Total Creatine Kinase CK-MB (CK-2) CK-MB (CK-2) Rel Index Total Protein Albumin Urine WBC (Auto) Vancomycin Trough Salicylates Acetaminophen Plasma/Serum Alcohol Crossmatch 12/19/19 12/19/19 12/20/19 12:59 18:33 00:00 WBC RBC Hgb Hct MCH RDW Plt Count Lymph % (Auto) [place] % (Auto) [place] # Baso # Seg Neutrophils % Seg Neuts % (Manual) Lymphocytes % (Manual) Monocytes % (Manual) Seg Neutrophils # Seg Neutrophils # Man Lymphocytes # (Manual) Monocytes # (Manual) Eosinophils # (Manual) Basophils # (Manual) PT INR APTT ABG pH ABG pO2 ABG HCO3 ABG O2 Saturation ABG Base Excess ABG Hemoglobin Oxyhemoglobin Sodium Potassium Chloride Carbon Dioxide BUN Creatinine Glucose POC Glucose 130 H 118 H 135 H Lactic Acid Calcium Ionized Calcium Phosphorus Magnesium Total Bilirubin AST ALT Alkaline Phosphatase Ammonia Total Creatine Kinase CK-MB (CK-2) CK-MB (CK-2) Rel Index Total Protein Albumin Urine WBC (Auto) Vancomycin Trough Salicylates Acetaminophen Plasma/Serum Alcohol Crossmatch 12/20/19 12/20/19 12/20/19 05:46 12:31 18:07 WBC RBC Hgb Hct MCH RDW Plt Count Lymph % (Auto) [place] % (Auto) [place] # Baso # Seg Neutrophils % Seg Neuts % (Manual) Lymphocytes % (Manual) Monocytes % (Manual) Seg Neutrophils # Seg Neutrophils # Man Lymphocytes # (Manual) Monocytes # (Manual) Eosinophils # (Manual) Basophils # (Manual) PT INR APTT ABG pH ABG pO2 ABG HCO3 ABG O2 Saturation ABG Base Excess ABG Hemoglobin Oxyhemoglobin Sodium Potassium Chloride Carbon Dioxide BUN Creatinine Glucose POC Glucose 131 H 128 H 134 H Lactic Acid Calcium Ionized Calcium Phosphorus Magnesium Total Bilirubin AST ALT Alkaline Phosphatase Ammonia Total Creatine Kinase CK-MB (CK-2) CK-MB (CK-2) Rel Index Total Protein Albumin Urine WBC (Auto) Vancomycin Trough Salicylates Acetaminophen Plasma/Serum Alcohol Crossmatch 12/21/19 12/21/19 12/21/19 03:28 03:28 07:21 WBC 29.4 H RBC 2.30 L Hgb 6.8 L Hct 20.2 L MCH RDW 20.2 H Plt Count 746 H Lymph % (Auto) [place] % (Auto) [place] # Baso # Seg Neutrophils % Seg Neuts % (Manual) 85.0 H Lymphocytes % (Manual) 8.0 L Monocytes % (Manual) Seg Neutrophils # Seg Neutrophils # Man 25.0 H Lymphocytes # (Manual) Monocytes # (Manual) 1.5 H Eosinophils # (Manual) 0.6 H Basophils # (Manual) PT INR APTT ABG pH ABG pO2 ABG HCO3 ABG O2 Saturation ABG Base Excess ABG Hemoglobin Oxyhemoglobin Sodium Potassium Chloride Carbon Dioxide 17 L BUN 57 H Creatinine 1.4 H D Glucose POC Glucose 124 H Lactic Acid Calcium Ionized Calcium Phosphorus Magnesium Total Bilirubin AST ALT Alkaline Phosphatase Ammonia Total Creatine Kinase CK-MB (CK-2) CK-MB (CK-2) Rel Index Total Protein Albumin Urine WBC (Auto) Vancomycin Trough Salicylates Acetaminophen Plasma/Serum Alcohol Crossmatch 12/21/19 12/21/19 12/21/19 08:56 12:06 14:53 WBC RBC Hgb 7.2 L Hct 22.9 L MCH RDW Plt Count Lymph % (Auto) [place] % (Auto) [place] # Baso # Seg Neutrophils % Seg Neuts % (Manual) Lymphocytes % (Manual) Monocytes % (Manual) Seg Neutrophils # Seg Neutrophils # Man Lymphocytes # (Manual) Monocytes # (Manual) Eosinophils # (Manual) Basophils # (Manual) PT INR APTT ABG pH ABG pO2 ABG HCO3 ABG O2 Saturation ABG Base Excess ABG Hemoglobin Oxyhemoglobin Sodium Potassium Chloride Carbon Dioxide BUN Creatinine Glucose POC Glucose 116 H Lactic Acid Calcium Ionized Calcium Phosphorus Magnesium Total Bilirubin AST ALT Alkaline Phosphatase Ammonia Total Creatine Kinase CK-MB (CK-2) CK-MB (CK-2) Rel Index Total Protein Albumin Urine WBC (Auto) Vancomycin Trough 33.8 H Salicylates Acetaminophen Plasma/Serum Alcohol Crossmatch 12/21/19 12/21/19 12/21/19 14:54 17:27 23:49 WBC RBC Hgb Hct MCH RDW Plt Count Lymph % (Auto) [place] % (Auto) [place] # Baso # Seg Neutrophils % Seg Neuts % (Manual) Lymphocytes % (Manual) Monocytes % (Manual) Seg Neutrophils # Seg Neutrophils # Man Lymphocytes # (Manual) Monocytes # (Manual) Eosinophils # (Manual) Basophils # (Manual) PT INR APTT ABG pH ABG pO2 ABG HCO3 ABG O2 Saturation ABG Base Excess ABG Hemoglobin Oxyhemoglobin Sodium Potassium Chloride Carbon Dioxide BUN Creatinine Glucose POC Glucose 145 H 127 H Lactic Acid Calcium Ionized Calcium Phosphorus Magnesium Total Bilirubin AST ALT Alkaline Phosphatase Ammonia Total Creatine Kinase CK-MB (CK-2) CK-MB (CK-2) Rel Index Total Protein Albumin Urine WBC (Auto) Vancomycin Trough Salicylates Acetaminophen Plasma/Serum Alcohol Crossmatch See Detail 12/22/19 12/22/19 12/22/19 04:43 05:56 08:40 WBC RBC Hgb Hct MCH RDW Plt Count Lymph % (Auto) [place] % (Auto) [place] # Baso # Seg Neutrophils % Seg Neuts % (Manual) Lymphocytes % (Manual) Monocytes % (Manual) Seg Neutrophils # Seg Neutrophils # Man Lymphocytes # (Manual) Monocytes # (Manual) Eosinophils # (Manual) Basophils # (Manual) PT INR APTT ABG pH ABG pO2 75.6 L ABG HCO3 ABG O2 Saturation ABG Base Excess -2.6 L ABG Hemoglobin 6.8 L Oxyhemoglobin 94.6 L Sodium Potassium Chloride Carbon Dioxide 17 L BUN 60 H Creatinine 1.4 H Glucose 126 H POC Glucose 153 H Lactic Acid Calcium Ionized Calcium Phosphorus Magnesium Total Bilirubin AST ALT Alkaline Phosphatase Ammonia Total Creatine Kinase CK-MB (CK-2) CK-MB (CK-2) Rel Index Total Protein Albumin Urine WBC (Auto) Vancomycin Trough Salicylates Acetaminophen Plasma/Serum Alcohol Crossmatch 12/22/19 12/22/19 12/23/19 12:07 17:49 04:30 WBC 22.4 H RBC 2.68 L Hgb 7.6 L Hct 22.9 L MCH RDW 19.9 H Plt Count 998 H Lymph % (Auto) [place] % (Auto) [place] # Baso # Seg Neutrophils % Seg Neuts % (Manual) 88.0 H Lymphocytes % (Manual) 2.0 L Monocytes % (Manual) 9.0 H Seg Neutrophils # Seg Neutrophils # Man 19.7 H Lymphocytes # (Manual) 0.4 L Monocytes # (Manual) 2.0 H Eosinophils # (Manual) Basophils # (Manual) PT INR APTT ABG pH ABG pO2 ABG HCO3 ABG O2 Saturation ABG Base Excess ABG Hemoglobin Oxyhemoglobin Sodium Potassium Chloride Carbon Dioxide BUN Creatinine Glucose POC Glucose 140 H 116 H Lactic Acid Calcium Ionized Calcium Phosphorus Magnesium Total Bilirubin AST ALT Alkaline Phosphatase Ammonia Total Creatine Kinase CK-MB (CK-2) CK-MB (CK-2) Rel Index Total Protein Albumin Urine WBC (Auto) Vancomycin Trough Salicylates Acetaminophen Plasma/Serum Alcohol Crossmatch 12/23/19 12/23/19 12/23/19 04:30 12:00 18:06 WBC RBC Hgb Hct MCH RDW Plt Count Lymph % (Auto) [place] % (Auto) [place] # Baso # Seg Neutrophils % Seg Neuts % (Manual) Lymphocytes % (Manual) Monocytes % (Manual) Seg Neutrophils # Seg Neutrophils # Man Lymphocytes # (Manual) Monocytes # (Manual) Eosinophils # (Manual) Basophils # (Manual) PT INR APTT ABG pH ABG pO2 ABG HCO3 ABG O2 Saturation ABG Base Excess ABG Hemoglobin Oxyhemoglobin Sodium Potassium 5.2 H Chloride Carbon Dioxide 21 L BUN 69 H Creatinine 1.5 H Glucose 117 H POC Glucose 128 H 138 H Lactic Acid Calcium Ionized Calcium Phosphorus Magnesium Total Bilirubin AST ALT Alkaline Phosphatase Ammonia Total Creatine Kinase CK-MB (CK-2) CK-MB (CK-2) Rel Index Total Protein Albumin Urine WBC (Auto) Vancomycin Trough Salicylates Acetaminophen Plasma/Serum Alcohol Crossmatch 12/23/19 12/24/19 12/24/19 23:46 04:31 05:08 WBC RBC Hgb Hct MCH RDW Plt Count Lymph % (Auto) [place] % (Auto) [place] # Baso # Seg Neutrophils % Seg Neuts % (Manual) Lymphocytes % (Manual) Monocytes % (Manual) Seg Neutrophils # Seg Neutrophils # Man Lymphocytes # (Manual) Monocytes # (Manual) Eosinophils # (Manual) Basophils # (Manual) PT INR APTT ABG pH ABG pO2 ABG HCO3 ABG O2 Saturation ABG Base Excess ABG Hemoglobin Oxyhemoglobin Sodium Potassium 5.3 H Chloride 107.6 H Carbon Dioxide 20 L BUN 72 H Creatinine 1.6 H Glucose 120 H POC Glucose 120 H 140 H Lactic Acid Calcium Ionized Calcium Phosphorus Magnesium Total Bilirubin AST ALT Alkaline Phosphatase Ammonia Total Creatine Kinase CK-MB (CK-2) CK-MB (CK-2) Rel Index Total Protein Albumin Urine WBC (Auto) Vancomycin Trough Salicylates Acetaminophen Plasma/Serum Alcohol Crossmatch 12/24/19 12/24/19 12/25/19 11:58 17:49 03:47 WBC 36.2 H RBC 2.92 L Hgb 8.4 L Hct 26.1 L MCH RDW 20.2 H Plt Count 942 H Lymph % (Auto) [place] % (Auto) [place] # Baso # Seg Neutrophils % Seg Neuts % (Manual) 97.5 H Lymphocytes % (Manual) 1.0 L Monocytes % (Manual) Seg Neutrophils # Seg Neutrophils # Man 35.3 H Lymphocytes # (Manual) 0.4 L Monocytes # (Manual) Eosinophils # (Manual) Basophils # (Manual) PT INR APTT ABG pH ABG pO2 ABG HCO3 ABG O2 Saturation ABG Base Excess ABG Hemoglobin Oxyhemoglobin Sodium Potassium Chloride Carbon Dioxide BUN Creatinine Glucose POC Glucose 146 H 131 H Lactic Acid Calcium Ionized Calcium Phosphorus Magnesium Total Bilirubin AST ALT Alkaline Phosphatase Ammonia Total Creatine Kinase CK-MB (CK-2) CK-MB (CK-2) Rel Index Total Protein Albumin Urine WBC (Auto) Vancomycin Trough Salicylates Acetaminophen Plasma/Serum Alcohol Crossmatch 12/25/19 12/25/19 12/25/19 03:47 05:30 12:23 WBC RBC Hgb Hct MCH RDW Plt Count Lymph % (Auto) [place] % (Auto) [place] # Baso # Seg Neutrophils % Seg Neuts % (Manual) Lymphocytes % (Manual) Monocytes % (Manual) Seg Neutrophils # Seg Neutrophils # Man Lymphocytes # (Manual) Monocytes # (Manual) Eosinophils # (Manual) Basophils # (Manual) PT INR APTT ABG pH ABG pO2 ABG HCO3 ABG O2 Saturation ABG Base Excess ABG Hemoglobin Oxyhemoglobin Sodium Potassium Chloride Carbon Dioxide 15 L BUN 70 H Creatinine 1.7 H Glucose 153 H POC Glucose 169 H 135 H Lactic Acid Calcium Ionized Calcium Phosphorus Magnesium Total Bilirubin AST ALT Alkaline Phosphatase Ammonia Total Creatine Kinase CK-MB (CK-2) CK-MB (CK-2) Rel Index Total Protein Albumin Urine WBC (Auto) Vancomycin Trough Salicylates Acetaminophen Plasma/Serum Alcohol Crossmatch 12/25/19 12/25/19 12/26/19 17:37 23:29 09:47 WBC 22.1 H RBC 2.83 L Hgb 7.9 L Hct 25.5 L MCH RDW 20.0 H Plt Count 894 H Lymph % (Auto) [place] % (Auto) [place] # Baso # Seg Neutrophils % Seg Neuts % (Manual) Lymphocytes % (Manual) Monocytes % (Manual) Seg Neutrophils # Seg Neutrophils # Man Lymphocytes # (Manual) Monocytes # (Manual) Eosinophils # (Manual) Basophils # (Manual) PT INR APTT ABG pH ABG pO2 ABG HCO3 ABG O2 Saturation ABG Base Excess ABG Hemoglobin Oxyhemoglobin Sodium Potassium Chloride Carbon Dioxide BUN Creatinine Glucose POC Glucose 120 H 140 H Lactic Acid Calcium Ionized Calcium Phosphorus Magnesium Total Bilirubin AST ALT Alkaline Phosphatase Ammonia Total Creatine Kinase CK-MB (CK-2) CK-MB (CK-2) Rel Index Total Protein Albumin Urine WBC (Auto) Vancomycin Trough Salicylates Acetaminophen Plasma/Serum Alcohol Crossmatch 12/26/19 12/26/19 12/26/19 09:47 11:46 17:52 WBC RBC Hgb Hct MCH RDW Plt Count Lymph % (Auto) [place] % (Auto) [place] # Baso # Seg Neutrophils % Seg Neuts % (Manual) Lymphocytes % (Manual) Monocytes % (Manual) Seg Neutrophils # Seg Neutrophils # Man Lymphocytes # (Manual) Monocytes # (Manual) Eosinophils # (Manual) Basophils # (Manual) PT INR APTT ABG pH ABG pO2 ABG HCO3 ABG O2 Saturation ABG Base Excess ABG Hemoglobin Oxyhemoglobin Sodium Potassium Chloride Carbon Dioxide 18 L BUN 65 H Creatinine 1.4 H Glucose 132 H POC Glucose 110 H 145 H Lactic Acid Calcium Ionized Calcium Phosphorus Magnesium Total Bilirubin AST ALT Alkaline Phosphatase Ammonia Total Creatine Kinase CK-MB (CK-2) CK-MB (CK-2) Rel Index Total Protein Albumin Urine WBC (Auto) Vancomycin Trough Salicylates Acetaminophen Plasma/Serum Alcohol Crossmatch 12/27/19 12/27/19 12/27/19 00:01 03:42 03:42 WBC 18.0 H RBC 2.86 L Hgb 8.0 L Hct 25.2 L MCH RDW 19.2 H Plt Count 873 H Lymph % (Auto) 8.4 L [place] % (Auto) 7.5 H [place] # 1.4 H Baso # 0.2 H Seg Neutrophils % 82.2 H Seg Neuts % (Manual) Lymphocytes % (Manual) Monocytes % (Manual) Seg Neutrophils # 14.8 H Seg Neutrophils # Man Lymphocytes # (Manual) Monocytes # (Manual) Eosinophils # (Manual) Basophils # (Manual) PT INR APTT ABG pH ABG pO2 ABG HCO3 ABG O2 Saturation ABG Base Excess ABG Hemoglobin Oxyhemoglobin Sodium Potassium Chloride Carbon Dioxide BUN 73 H Creatinine 1.4 H Glucose 119 H POC Glucose 124 H Lactic Acid Calcium Ionized Calcium Phosphorus Magnesium Total Bilirubin AST ALT Alkaline Phosphatase Ammonia Total Creatine Kinase CK-MB (CK-2) CK-MB (CK-2) Rel Index Total Protein Albumin Urine WBC (Auto) Vancomycin Trough Salicylates Acetaminophen Plasma/Serum Alcohol Crossmatch 12/27/19 12/27/19 12/27/19 05:45 11:45 17:29 WBC RBC Hgb Hct MCH RDW Plt Count Lymph % (Auto) [place] % (Auto) [place] # Baso # Seg Neutrophils % Seg Neuts % (Manual) Lymphocytes % (Manual) Monocytes % (Manual) Seg Neutrophils # Seg Neutrophils # Man Lymphocytes # (Manual) Monocytes # (Manual) Eosinophils # (Manual) Basophils # (Manual) PT INR APTT ABG pH ABG pO2 ABG HCO3 ABG O2 Saturation ABG Base Excess ABG Hemoglobin Oxyhemoglobin Sodium Potassium Chloride Carbon Dioxide BUN Creatinine Glucose POC Glucose 131 H 123 H 134 H Lactic Acid Calcium Ionized Calcium Phosphorus Magnesium Total Bilirubin AST ALT Alkaline Phosphatase Ammonia Total Creatine Kinase CK-MB (CK-2) CK-MB (CK-2) Rel Index Total Protein Albumin Urine WBC (Auto) Vancomycin Trough Salicylates Acetaminophen Plasma/Serum Alcohol Crossmatch 12/28/19 12/28/19 12/28/19 00:12 05:14 11:53 WBC RBC Hgb Hct MCH RDW Plt Count Lymph % (Auto) [place] % (Auto) [place] # Baso # Seg Neutrophils % Seg Neuts % (Manual) Lymphocytes % (Manual) Monocytes % (Manual) Seg Neutrophils # Seg Neutrophils # Man Lymphocytes # (Manual) Monocytes # (Manual) Eosinophils # (Manual) Basophils # (Manual) PT INR APTT ABG pH ABG pO2 ABG HCO3 ABG O2 Saturation ABG Base Excess ABG Hemoglobin Oxyhemoglobin Sodium Potassium Chloride Carbon Dioxide BUN Creatinine Glucose POC Glucose 138 H 130 H 146 H Lactic Acid Calcium Ionized Calcium Phosphorus Magnesium Total Bilirubin AST ALT Alkaline Phosphatase Ammonia Total Creatine Kinase CK-MB (CK-2) CK-MB (CK-2) Rel Index Total Protein Albumin Urine WBC (Auto) Vancomycin Trough Salicylates Acetaminophen Plasma/Serum Alcohol Crossmatch 12/28/19 12/29/19 12/29/19 17:39 00:01 18:11 WBC RBC Hgb Hct MCH RDW Plt Count Lymph % (Auto) [place] % (Auto) [place] # Baso # Seg Neutrophils % Seg Neuts % (Manual) Lymphocytes % (Manual) Monocytes % (Manual) Seg Neutrophils # Seg Neutrophils # Man Lymphocytes # (Manual) Monocytes # (Manual) Eosinophils # (Manual) Basophils # (Manual) PT INR APTT ABG pH ABG pO2 ABG HCO3 ABG O2 Saturation ABG Base Excess ABG Hemoglobin Oxyhemoglobin Sodium Potassium Chloride Carbon Dioxide BUN Creatinine Glucose POC Glucose 117 H 139 H 130 H Lactic Acid Calcium Ionized Calcium Phosphorus Magnesium Total Bilirubin AST ALT Alkaline Phosphatase Ammonia Total Creatine Kinase CK-MB (CK-2) CK-MB (CK-2) Rel Index Total Protein Albumin Urine WBC (Auto) Vancomycin Trough Salicylates Acetaminophen Plasma/Serum Alcohol Crossmatch 12/29/19 12/30/19 12/30/19 23:09 00:02 01:06 WBC 16.7 H RBC 2.91 L Hgb 8.2 L Hct 25.4 L MCH RDW 18.7 H Plt Count 708 H Lymph % (Auto) 9.4 L [place] % (Auto) [place] # 0.9 H Baso # Seg Neutrophils % 83.5 H Seg Neuts % (Manual) Lymphocytes % (Manual) Monocytes % (Manual) Seg Neutrophils # 14.0 H Seg Neutrophils # Man Lymphocytes # (Manual) Monocytes # (Manual) Eosinophils # (Manual) Basophils # (Manual) PT INR APTT ABG pH ABG pO2 ABG HCO3 ABG O2 Saturation ABG Base Excess ABG Hemoglobin Oxyhemoglobin Sodium Potassium Chloride Carbon Dioxide BUN Creatinine Glucose POC Glucose 120 H 114 H Lactic Acid Calcium Ionized Calcium Phosphorus Magnesium Total Bilirubin AST ALT Alkaline Phosphatase Ammonia Total Creatine Kinase CK-MB (CK-2) CK-MB (CK-2) Rel Index Total Protein Albumin Urine WBC (Auto) Vancomycin Trough Salicylates Acetaminophen Plasma/Serum Alcohol Crossmatch 12/30/19 12/30/19 12/30/19 01:06 04:23 05:18 WBC RBC Hgb Hct MCH RDW Plt Count Lymph % (Auto) [place] % (Auto) [place] # Baso # Seg Neutrophils % Seg Neuts % (Manual) Lymphocytes % (Manual) Monocytes % (Manual) Seg Neutrophils # Seg Neutrophils # Man Lymphocytes # (Manual) Monocytes # (Manual) Eosinophils # (Manual) Basophils # (Manual) PT INR APTT ABG pH ABG pO2 ABG HCO3 ABG O2 Saturation ABG Base Excess ABG Hemoglobin 8.3 L Oxyhemoglobin Sodium Potassium Chloride Carbon Dioxide BUN 70 H Creatinine Glucose 122 H POC Glucose 130 H Lactic Acid Calcium Ionized Calcium Phosphorus Magnesium Total Bilirubin AST ALT Alkaline Phosphatase Ammonia Total Creatine Kinase CK-MB (CK-2) CK-MB (CK-2) Rel Index Total Protein Albumin Urine WBC (Auto) Vancomycin Trough Salicylates Acetaminophen Plasma/Serum Alcohol Crossmatch 12/30/19 12/30/19 12/30/19 05:40 12:17 17:43 WBC RBC Hgb Hct MCH RDW Plt Count Lymph % (Auto) [place] % (Auto) [place] # Baso # Seg Neutrophils % Seg Neuts % (Manual) Lymphocytes % (Manual) Monocytes % (Manual) Seg Neutrophils # Seg Neutrophils # Man Lymphocytes # (Manual) Monocytes # (Manual) Eosinophils # (Manual) Basophils # (Manual) PT INR APTT ABG pH ABG pO2 ABG HCO3 ABG O2 Saturation ABG Base Excess ABG Hemoglobin Oxyhemoglobin Sodium Potassium Chloride Carbon Dioxide BUN Creatinine Glucose POC Glucose 135 H 132 H 118 H Lactic Acid Calcium Ionized Calcium Phosphorus Magnesium Total Bilirubin AST ALT Alkaline Phosphatase Ammonia Total Creatine Kinase CK-MB (CK-2) CK-MB (CK-2) Rel Index Total Protein Albumin Urine WBC (Auto) Vancomycin Trough Salicylates Acetaminophen Plasma/Serum Alcohol Crossmatch 12/30/19 12/31/19 12/31/19 23:29 05:19 17:50 WBC RBC Hgb Hct MCH RDW Plt Count Lymph % (Auto) [place] % (Auto) [place] # Baso # Seg Neutrophils % Seg Neuts % (Manual) Lymphocytes % (Manual) Monocytes % (Manual) Seg Neutrophils # Seg Neutrophils # Man Lymphocytes # (Manual) Monocytes # (Manual) Eosinophils # (Manual) Basophils # (Manual) PT INR APTT ABG pH ABG pO2 ABG HCO3 ABG O2 Saturation ABG Base Excess ABG Hemoglobin Oxyhemoglobin Sodium Potassium Chloride Carbon Dioxide BUN Creatinine Glucose POC Glucose 114 H 109 H 116 H Lactic Acid Calcium Ionized Calcium Phosphorus Magnesium Total Bilirubin AST ALT Alkaline Phosphatase Ammonia Total Creatine Kinase CK-MB (CK-2) CK-MB (CK-2) Rel Index Total Protein Albumin Urine WBC (Auto) Vancomycin Trough Salicylates Acetaminophen Plasma/Serum Alcohol Crossmatch 01/01/20 01/01/20 01/01/20 00:10 05:19 12:02 WBC RBC Hgb Hct MCH RDW Plt Count Lymph % (Auto) [place] % (Auto) [place] # Baso # Seg Neutrophils % Seg Neuts % (Manual) Lymphocytes % (Manual) Monocytes % (Manual) Seg Neutrophils # Seg Neutrophils # Man Lymphocytes # (Manual) Monocytes # (Manual) Eosinophils # (Manual) Basophils # (Manual) PT INR APTT ABG pH ABG pO2 ABG HCO3 ABG O2 Saturation ABG Base Excess ABG Hemoglobin Oxyhemoglobin Sodium Potassium Chloride Carbon Dioxide BUN Creatinine Glucose POC Glucose 131 H 122 H 136 H Lactic Acid Calcium Ionized Calcium Phosphorus Magnesium Total Bilirubin AST ALT Alkaline Phosphatase Ammonia Total Creatine Kinase CK-MB (CK-2) CK-MB (CK-2) Rel Index Total Protein Albumin Urine WBC (Auto) Vancomycin Trough Salicylates Acetaminophen Plasma/Serum Alcohol Crossmatch 01/02/20 01/02/20 01/02/20 00:24 05:36 11:41 WBC RBC Hgb Hct MCH RDW Plt Count Lymph % (Auto) [place] % (Auto) [place] # Baso # Seg Neutrophils % Seg Neuts % (Manual) Lymphocytes % (Manual) Monocytes % (Manual) Seg Neutrophils # Seg Neutrophils # Man Lymphocytes # (Manual) Monocytes # (Manual) Eosinophils # (Manual) Basophils # (Manual) PT INR APTT ABG pH ABG pO2 ABG HCO3 ABG O2 Saturation ABG Base Excess ABG Hemoglobin Oxyhemoglobin Sodium Potassium Chloride Carbon Dioxide BUN Creatinine Glucose POC Glucose 119 H 109 H 125 H Lactic Acid Calcium Ionized Calcium Phosphorus Magnesium Total Bilirubin AST ALT Alkaline Phosphatase Ammonia Total Creatine Kinase CK-MB (CK-2) CK-MB (CK-2) Rel Index Total Protein Albumin Urine WBC (Auto) Vancomycin Trough Salicylates Acetaminophen Plasma/Serum Alcohol Crossmatch 01/02/20 01/03/20 01/03/20 17:49 05:29 12:13 WBC RBC Hgb Hct MCH RDW Plt Count Lymph % (Auto) [place] % (Auto) [place] # Baso # Seg Neutrophils % Seg Neuts % (Manual) Lymphocytes % (Manual) Monocytes % (Manual) Seg Neutrophils # Seg Neutrophils # Man Lymphocytes # (Manual) Monocytes # (Manual) Eosinophils # (Manual) Basophils # (Manual) PT INR APTT ABG pH ABG pO2 ABG HCO3 ABG O2 Saturation ABG Base Excess ABG Hemoglobin Oxyhemoglobin Sodium Potassium Chloride Carbon Dioxide BUN Creatinine Glucose POC Glucose 130 H 132 H 113 H Lactic Acid Calcium Ionized Calcium Phosphorus Magnesium Total Bilirubin AST ALT Alkaline Phosphatase Ammonia Total Creatine Kinase CK-MB (CK-2) CK-MB (CK-2) Rel Index Total Protein Albumin Urine WBC (Auto) Vancomycin Trough Salicylates Acetaminophen Plasma/Serum Alcohol Crossmatch 01/03/20 01/04/20 01/04/20 17:32 00:19 05:26 WBC RBC Hgb Hct MCH RDW Plt Count Lymph % (Auto) [place] % (Auto) [place] # Baso # Seg Neutrophils % Seg Neuts % (Manual) Lymphocytes % (Manual) Monocytes % (Manual) Seg Neutrophils # Seg Neutrophils # Man Lymphocytes # (Manual) Monocytes # (Manual) Eosinophils # (Manual) Basophils # (Manual) PT INR APTT ABG pH ABG pO2 ABG HCO3 ABG O2 Saturation ABG Base Excess ABG Hemoglobin Oxyhemoglobin Sodium Potassium Chloride Carbon Dioxide BUN Creatinine Glucose POC Glucose 127 H 141 H 129 H Lactic Acid Calcium Ionized Calcium Phosphorus Magnesium Total Bilirubin AST ALT Alkaline Phosphatase Ammonia Total Creatine Kinase CK-MB (CK-2) CK-MB (CK-2) Rel Index Total Protein Albumin Urine WBC (Auto) Vancomycin Trough Salicylates Acetaminophen Plasma/Serum Alcohol Crossmatch 01/04/20 01/04/20 01/05/20 11:39 17:29 05:22 WBC RBC Hgb Hct MCH RDW Plt Count Lymph % (Auto) [place] % (Auto) [place] # Baso # Seg Neutrophils % Seg Neuts % (Manual) Lymphocytes % (Manual) Monocytes % (Manual) Seg Neutrophils # Seg Neutrophils # Man Lymphocytes # (Manual) Monocytes # (Manual) Eosinophils # (Manual) Basophils # (Manual) PT INR APTT ABG pH ABG pO2 ABG HCO3 ABG O2 Saturation ABG Base Excess ABG Hemoglobin Oxyhemoglobin Sodium Potassium Chloride Carbon Dioxide BUN Creatinine Glucose POC Glucose 167 H 132 H 121 H Lactic Acid Calcium Ionized Calcium Phosphorus Magnesium Total Bilirubin AST ALT Alkaline Phosphatase Ammonia Total Creatine Kinase CK-MB (CK-2) CK-MB (CK-2) Rel Index Total Protein Albumin Urine WBC (Auto) Vancomycin Trough Salicylates Acetaminophen Plasma/Serum Alcohol Crossmatch 01/05/20 01/05/20 01/05/20 12:25 17:40 18:06 WBC RBC Hgb Hct MCH RDW Plt Count Lymph % (Auto) [place] % (Auto) [place] # Baso # Seg Neutrophils % Seg Neuts % (Manual) Lymphocytes % (Manual) Monocytes % (Manual) Seg Neutrophils # Seg Neutrophils # Man Lymphocytes # (Manual) Monocytes # (Manual) Eosinophils # (Manual) Basophils # (Manual) PT INR APTT ABG pH 7.472 H ABG pO2 99.2 H ABG HCO3 ABG O2 Saturation ABG Base Excess ABG Hemoglobin 7.8 L Oxyhemoglobin Sodium Potassium Chloride Carbon Dioxide BUN Creatinine Glucose POC Glucose 106 H 110 H Lactic Acid Calcium Ionized Calcium Phosphorus Magnesium Total Bilirubin AST ALT Alkaline Phosphatase Ammonia Total Creatine Kinase CK-MB (CK-2) CK-MB (CK-2) Rel Index Total Protein Albumin Urine WBC (Auto) Vancomycin Trough Salicylates Acetaminophen Plasma/Serum Alcohol Crossmatch 01/06/20 01/06/20 01/06/20 00:11 05:16 11:30 WBC RBC Hgb Hct MCH RDW Plt Count Lymph % (Auto) [place] % (Auto) [place] # Baso # Seg Neutrophils % Seg Neuts % (Manual) Lymphocytes % (Manual) Monocytes % (Manual) Seg Neutrophils # Seg Neutrophils # Man Lymphocytes # (Manual) Monocytes # (Manual) Eosinophils # (Manual) Basophils # (Manual) PT INR APTT ABG pH ABG pO2 ABG HCO3 ABG O2 Saturation ABG Base Excess ABG Hemoglobin Oxyhemoglobin Sodium Potassium Chloride Carbon Dioxide BUN Creatinine Glucose POC Glucose 108 H 124 H 125 H Lactic Acid Calcium Ionized Calcium Phosphorus Magnesium Total Bilirubin AST ALT Alkaline Phosphatase Ammonia Total Creatine Kinase CK-MB (CK-2) CK-MB (CK-2) Rel Index Total Protein Albumin Urine WBC (Auto) Vancomycin Trough Salicylates Acetaminophen Plasma/Serum Alcohol Crossmatch 01/06/20 01/06/20 01/07/20 17:53 23:51 04:12 WBC 16.5 H RBC 3.29 L Hgb 9.3 L Hct 28.1 L MCH RDW 18.2 H Plt Count 526 H Lymph % (Auto) 8.4 L [place] % (Auto) [place] # 1.0 H Baso # Seg Neutrophils % 84.4 H Seg Neuts % (Manual) Lymphocytes % (Manual) Monocytes % (Manual) Seg Neutrophils # 13.9 H Seg Neutrophils # Man Lymphocytes # (Manual) Monocytes # (Manual) Eosinophils # (Manual) Basophils # (Manual) PT INR APTT ABG pH ABG pO2 ABG HCO3 ABG O2 Saturation ABG Base Excess ABG Hemoglobin Oxyhemoglobin Sodium Potassium Chloride Carbon Dioxide BUN Creatinine Glucose POC Glucose 166 H 128 H Lactic Acid Calcium Ionized Calcium Phosphorus Magnesium Total Bilirubin AST ALT Alkaline Phosphatase Ammonia Total Creatine Kinase CK-MB (CK-2) CK-MB (CK-2) Rel Index Total Protein Albumin Urine WBC (Auto) Vancomycin Trough Salicylates Acetaminophen Plasma/Serum Alcohol Crossmatch 01/07/20 01/07/20 01/07/20 04:12 04:45 11:51 WBC RBC Hgb Hct MCH RDW Plt Count Lymph % (Auto) [place] % (Auto) [place] # Baso # Seg Neutrophils % Seg Neuts % (Manual) Lymphocytes % (Manual) Monocytes % (Manual) Seg Neutrophils # Seg Neutrophils # Man Lymphocytes # (Manual) Monocytes # (Manual) Eosinophils # (Manual) Basophils # (Manual) PT INR APTT ABG pH ABG pO2 ABG HCO3 ABG O2 Saturation ABG Base Excess ABG Hemoglobin Oxyhemoglobin Sodium 136 L Potassium Chloride Carbon Dioxide 21 L BUN 44 H Creatinine 0.6 L Glucose 124 H POC Glucose 134 H 138 H Lactic Acid Calcium Ionized Calcium Phosphorus Magnesium Total Bilirubin AST ALT Alkaline Phosphatase Ammonia Total Creatine Kinase CK-MB (CK-2) CK-MB (CK-2) Rel Index Total Protein Albumin Urine WBC (Auto) Vancomycin Trough Salicylates Acetaminophen Plasma/Serum Alcohol Crossmatch 01/07/20 01/08/20 01/08/20 17:36 00:33 05:29 WBC RBC Hgb Hct MCH RDW Plt Count Lymph % (Auto) [place] % (Auto) [place] # Baso # Seg Neutrophils % Seg Neuts % (Manual) Lymphocytes % (Manual) Monocytes % (Manual) Seg Neutrophils # Seg Neutrophils # Man Lymphocytes # (Manual) Monocytes # (Manual) Eosinophils # (Manual) Basophils # (Manual) PT INR APTT ABG pH ABG pO2 ABG HCO3 ABG O2 Saturation ABG Base Excess ABG Hemoglobin Oxyhemoglobin Sodium Potassium Chloride Carbon Dioxide BUN Creatinine Glucose POC Glucose 128 H 119 H 124 H Lactic Acid Calcium Ionized Calcium Phosphorus Magnesium Total Bilirubin AST ALT Alkaline Phosphatase Ammonia Total Creatine Kinase CK-MB (CK-2) CK-MB (CK-2) Rel Index Total Protein Albumin Urine WBC (Auto) Vancomycin Trough Salicylates Acetaminophen Plasma/Serum Alcohol Crossmatch 01/08/20 01/08/20 01/08/20 12:51 20:25 23:22 WBC RBC Hgb Hct MCH RDW Plt Count Lymph % (Auto) [place] % (Auto) [place] # Baso # Seg Neutrophils % Seg Neuts % (Manual) Lymphocytes % (Manual) Monocytes % (Manual) Seg Neutrophils # Seg Neutrophils # Man Lymphocytes # (Manual) Monocytes # (Manual) Eosinophils # (Manual) Basophils # (Manual) PT INR APTT ABG pH ABG pO2 132.2 H ABG HCO3 ABG O2 Saturation ABG Base Excess ABG Hemoglobin Oxyhemoglobin Sodium Potassium Chloride Carbon Dioxide BUN Creatinine Glucose POC Glucose 128 H 127 H Lactic Acid Calcium Ionized Calcium Phosphorus Magnesium Total Bilirubin AST ALT Alkaline Phosphatase Ammonia Total Creatine Kinase CK-MB (CK-2) CK-MB (CK-2) Rel Index Total Protein Albumin Urine WBC (Auto) Vancomycin Trough Salicylates Acetaminophen Plasma/Serum Alcohol Crossmatch 01/09/20 01/09/20 01/09/20 05:48 08:51 11:29 WBC RBC Hgb Hct MCH RDW Plt Count Lymph % (Auto) [place] % (Auto) [place] # Baso # Seg Neutrophils % Seg Neuts % (Manual) Lymphocytes % (Manual) Monocytes % (Manual) Seg Neutrophils # Seg Neutrophils # Man Lymphocytes # (Manual) Monocytes # (Manual) Eosinophils # (Manual) Basophils # (Manual) PT INR APTT ABG pH ABG pO2 94.3 H ABG HCO3 ABG O2 Saturation ABG Base Excess ABG Hemoglobin 9.5 L Oxyhemoglobin Sodium Potassium Chloride Carbon Dioxide BUN Creatinine Glucose POC Glucose 120 H 112 H Lactic Acid Calcium Ionized Calcium Phosphorus Magnesium Total Bilirubin AST ALT Alkaline Phosphatase Ammonia Total Creatine Kinase CK-MB (CK-2) CK-MB (CK-2) Rel Index Total Protein Albumin Urine WBC (Auto) Vancomycin Trough Salicylates Acetaminophen Plasma/Serum Alcohol Crossmatch 01/09/20 01/10/20 01/10/20 17:57 05:17 12:28 WBC RBC Hgb Hct MCH RDW Plt Count Lymph % (Auto) [place] % (Auto) [place] # Baso # Seg Neutrophils % Seg Neuts % (Manual) Lymphocytes % (Manual) Monocytes % (Manual) Seg Neutrophils # Seg Neutrophils # Man Lymphocytes # (Manual) Monocytes # (Manual) Eosinophils # (Manual) Basophils # (Manual) PT INR APTT ABG pH ABG pO2 ABG HCO3 ABG O2 Saturation ABG Base Excess ABG Hemoglobin Oxyhemoglobin Sodium Potassium Chloride Carbon Dioxide BUN Creatinine Glucose POC Glucose 122 H 115 H 116 H Lactic Acid Calcium Ionized Calcium Phosphorus Magnesium Total Bilirubin AST ALT Alkaline Phosphatase Ammonia Total Creatine Kinase CK-MB (CK-2) CK-MB (CK-2) Rel Index Total Protein Albumin Urine WBC (Auto) Vancomycin Trough Salicylates Acetaminophen Plasma/Serum Alcohol Crossmatch 01/10/20 01/10/20 01/11/20 18:25 23:47 06:05 WBC RBC Hgb Hct MCH RDW Plt Count Lymph % (Auto) [place] % (Auto) [place] # Baso # Seg Neutrophils % Seg Neuts % (Manual) Lymphocytes % (Manual) Monocytes % (Manual) Seg Neutrophils # Seg Neutrophils # Man Lymphocytes # (Manual) Monocytes # (Manual) Eosinophils # (Manual) Basophils # (Manual) PT INR APTT ABG pH ABG pO2 ABG HCO3 ABG O2 Saturation ABG Base Excess ABG Hemoglobin Oxyhemoglobin Sodium Potassium Chloride Carbon Dioxide BUN Creatinine Glucose POC Glucose 123 H 115 H 151 H Lactic Acid Calcium Ionized Calcium Phosphorus Magnesium Total Bilirubin AST ALT Alkaline Phosphatase Ammonia Total Creatine Kinase CK-MB (CK-2) CK-MB (CK-2) Rel Index Total Protein Albumin Urine WBC (Auto) Vancomycin Trough Salicylates Acetaminophen Plasma/Serum Alcohol Crossmatch 01/11/20 01/11/20 01/11/20 07:00 07:00 12:27 WBC 11.8 H RBC 3.40 L Hgb 9.4 L Hct 29.3 L MCH RDW 18.1 H Plt Count 549 H Lymph % (Auto) [place] % (Auto) 9.1 H [place] # 1.1 H Baso # Seg Neutrophils % 73.3 H Seg Neuts % (Manual) Lymphocytes % (Manual) Monocytes % (Manual) Seg Neutrophils # 8.7 H Seg Neutrophils # Man Lymphocytes # (Manual) Monocytes # (Manual) Eosinophils # (Manual) Basophils # (Manual) PT INR APTT ABG pH ABG pO2 ABG HCO3 ABG O2 Saturation ABG Base Excess ABG Hemoglobin Oxyhemoglobin Sodium 134 L Potassium Chloride 97.7 L Carbon Dioxide 21 L BUN 38 H Creatinine 0.5 L Glucose 168 H POC Glucose 117 H Lactic Acid Calcium 10.5 H Ionized Calcium Phosphorus Magnesium Total Bilirubin AST ALT Alkaline Phosphatase Ammonia Total Creatine Kinase CK-MB (CK-2) CK-MB (CK-2) Rel Index Total Protein Albumin Urine WBC (Auto) Vancomycin Trough Salicylates Acetaminophen Plasma/Serum Alcohol Crossmatch 01/11/20 01/12/20 01/12/20 18:19 00:53 05:24 WBC RBC Hgb Hct MCH RDW Plt Count Lymph % (Auto) [place] % (Auto) [place] # Baso # Seg Neutrophils % Seg Neuts % (Manual) Lymphocytes % (Manual) Monocytes % (Manual) Seg Neutrophils # Seg Neutrophils # Man Lymphocytes # (Manual) Monocytes # (Manual) Eosinophils # (Manual) Basophils # (Manual) PT INR APTT ABG pH ABG pO2 ABG HCO3 ABG O2 Saturation ABG Base Excess ABG Hemoglobin Oxyhemoglobin Sodium Potassium Chloride Carbon Dioxide BUN Creatinine Glucose POC Glucose 126 H 126 H 128 H Lactic Acid Calcium Ionized Calcium Phosphorus Magnesium Total Bilirubin AST ALT Alkaline Phosphatase Ammonia Total Creatine Kinase CK-MB (CK-2) CK-MB (CK-2) Rel Index Total Protein Albumin Urine WBC (Auto) Vancomycin Trough Salicylates Acetaminophen Plasma/Serum Alcohol Crossmatch 01/12/20 01/12/20 01/13/20 13:39 18:02 00:27 WBC RBC Hgb Hct MCH RDW Plt Count Lymph % (Auto) [place] % (Auto) [place] # Baso # Seg Neutrophils % Seg Neuts % (Manual) Lymphocytes % (Manual) Monocytes % (Manual) Seg Neutrophils # Seg Neutrophils # Man Lymphocytes # (Manual) Monocytes # (Manual) Eosinophils # (Manual) Basophils # (Manual) PT INR APTT ABG pH ABG pO2 ABG HCO3 ABG O2 Saturation ABG Base Excess ABG Hemoglobin Oxyhemoglobin Sodium Potassium Chloride Carbon Dioxide BUN Creatinine Glucose POC Glucose 146 H 125 H 131 H Lactic Acid Calcium Ionized Calcium Phosphorus Magnesium Total Bilirubin AST ALT Alkaline Phosphatase Ammonia Total Creatine Kinase CK-MB (CK-2) CK-MB (CK-2) Rel Index Total Protein Albumin Urine WBC (Auto) Vancomycin Trough Salicylates Acetaminophen Plasma/Serum Alcohol Crossmatch 01/13/20 01/13/20 01/13/20 05:44 11:54 17:18 WBC RBC Hgb Hct MCH RDW Plt Count Lymph % (Auto) [place] % (Auto) [place] # Baso # Seg Neutrophils % Seg Neuts % (Manual) Lymphocytes % (Manual) Monocytes % (Manual) Seg Neutrophils # Seg Neutrophils # Man Lymphocytes # (Manual) Monocytes # (Manual) Eosinophils # (Manual) Basophils # (Manual) PT INR APTT ABG pH ABG pO2 ABG HCO3 ABG O2 Saturation ABG Base Excess ABG Hemoglobin Oxyhemoglobin Sodium Potassium Chloride Carbon Dioxide BUN Creatinine Glucose POC Glucose 148 H 140 H 130 H Lactic Acid Calcium Ionized Calcium Phosphorus Magnesium Total Bilirubin AST ALT Alkaline Phosphatase Ammonia Total Creatine Kinase CK-MB (CK-2) CK-MB (CK-2) Rel Index Total Protein Albumin Urine WBC (Auto) Vancomycin Trough Salicylates Acetaminophen Plasma/Serum Alcohol Crossmatch 01/14/20 01/14/20 01/14/20 00:16 05:45 12:19 WBC RBC Hgb Hct MCH RDW Plt Count Lymph % (Auto) [place] % (Auto) [place] # Baso # Seg Neutrophils % Seg Neuts % (Manual) Lymphocytes % (Manual) Monocytes % (Manual) Seg Neutrophils # Seg Neutrophils # Man Lymphocytes # (Manual) Monocytes # (Manual) Eosinophils # (Manual) Basophils # (Manual) PT INR APTT ABG pH ABG pO2 ABG HCO3 ABG O2 Saturation ABG Base Excess ABG Hemoglobin Oxyhemoglobin Sodium Potassium Chloride Carbon Dioxide BUN Creatinine Glucose POC Glucose 125 H 146 H 147 H Lactic Acid Calcium Ionized Calcium Phosphorus Magnesium Total Bilirubin AST ALT Alkaline Phosphatase Ammonia Total Creatine Kinase CK-MB (CK-2) CK-MB (CK-2) Rel Index Total Protein Albumin Urine WBC (Auto) Vancomycin Trough Salicylates Acetaminophen Plasma/Serum Alcohol Crossmatch 01/14/20 01/14/20 01/15/20 18:10 23:54 05:14 WBC RBC Hgb Hct MCH RDW Plt Count Lymph % (Auto) [place] % (Auto) [place] # Baso # Seg Neutrophils % Seg Neuts % (Manual) Lymphocytes % (Manual) Monocytes % (Manual) Seg Neutrophils # Seg Neutrophils # Man Lymphocytes # (Manual) Monocytes # (Manual) Eosinophils # (Manual) Basophils # (Manual) PT INR APTT ABG pH ABG pO2 ABG HCO3 ABG O2 Saturation ABG Base Excess ABG Hemoglobin Oxyhemoglobin Sodium Potassium Chloride Carbon Dioxide BUN Creatinine Glucose POC Glucose 136 H 109 H 111 H Lactic Acid Calcium Ionized Calcium Phosphorus Magnesium Total Bilirubin AST ALT Alkaline Phosphatase Ammonia Total Creatine Kinase CK-MB (CK-2) CK-MB (CK-2) Rel Index Total Protein Albumin Urine WBC (Auto) Vancomycin Trough Salicylates Acetaminophen Plasma/Serum Alcohol Crossmatch 01/15/20 01/15/20 01/16/20 12:34 23:25 05:06 WBC RBC Hgb Hct MCH RDW Plt Count Lymph % (Auto) [place] % (Auto) [place] # Baso # Seg Neutrophils % Seg Neuts % (Manual) Lymphocytes % (Manual) Monocytes % (Manual) Seg Neutrophils # Seg Neutrophils # Man Lymphocytes # (Manual) Monocytes # (Manual) Eosinophils # (Manual) Basophils # (Manual) PT INR APTT ABG pH ABG pO2 ABG HCO3 ABG O2 Saturation ABG Base Excess ABG Hemoglobin Oxyhemoglobin Sodium Potassium Chloride Carbon Dioxide BUN Creatinine Glucose POC Glucose 131 H 120 H 121 H Lactic Acid Calcium Ionized Calcium Phosphorus Magnesium Total Bilirubin AST ALT Alkaline Phosphatase Ammonia Total Creatine Kinase CK-MB (CK-2) CK-MB (CK-2) Rel Index Total Protein Albumin Urine WBC (Auto) Vancomycin Trough Salicylates Acetaminophen Plasma/Serum Alcohol Crossmatch 01/16/20 01/17/20 01/17/20 23:46 05:32 06:47 WBC 13.6 H RBC 3.27 L Hgb 9.3 L Hct 28.5 L MCH RDW 17.0 H Plt Count 490 H Lymph % (Auto) 13.1 L [place] % (Auto) [place] # 1.0 H Baso # Seg Neutrophils % 77.5 H Seg Neuts % (Manual) Lymphocytes % (Manual) Monocytes % (Manual) Seg Neutrophils # 10.5 H Seg Neutrophils # Man Lymphocytes # (Manual) Monocytes # (Manual) Eosinophils # (Manual) Basophils # (Manual) PT INR APTT ABG pH ABG pO2 ABG HCO3 ABG O2 Saturation ABG Base Excess ABG Hemoglobin Oxyhemoglobin Sodium Potassium Chloride Carbon Dioxide BUN Creatinine Glucose POC Glucose 107 H 112 H Lactic Acid Calcium Ionized Calcium Phosphorus Magnesium Total Bilirubin AST ALT Alkaline Phosphatase Ammonia Total Creatine Kinase CK-MB (CK-2) CK-MB (CK-2) Rel Index Total Protein Albumin Urine WBC (Auto) Vancomycin Trough Salicylates Acetaminophen Plasma/Serum Alcohol Crossmatch 01/17/20 01/17/20 01/17/20 12:16 17:21 23:34 WBC RBC Hgb Hct MCH RDW Plt Count Lymph % (Auto) [place] % (Auto) [place] # Baso # Seg Neutrophils % Seg Neuts % (Manual) Lymphocytes % (Manual) Monocytes % (Manual) Seg Neutrophils # Seg Neutrophils # Man Lymphocytes # (Manual) Monocytes # (Manual) Eosinophils # (Manual) Basophils # (Manual) PT INR APTT ABG pH ABG pO2 ABG HCO3 ABG O2 Saturation ABG Base Excess ABG Hemoglobin Oxyhemoglobin Sodium Potassium Chloride Carbon Dioxide BUN Creatinine Glucose POC Glucose 145 H 150 H 160 H Lactic Acid Calcium Ionized Calcium Phosphorus Magnesium Total Bilirubin AST ALT Alkaline Phosphatase Ammonia Total Creatine Kinase CK-MB (CK-2) CK-MB (CK-2) Rel Index Total Protein Albumin Urine WBC (Auto) Vancomycin Trough Salicylates Acetaminophen Plasma/Serum Alcohol Crossmatch 01/18/20 01/18/20 01/18/20 05:47 12:43 18:26 WBC RBC Hgb Hct MCH RDW Plt Count Lymph % (Auto) [place] % (Auto) [place] # Baso # Seg Neutrophils % Seg Neuts % (Manual) Lymphocytes % (Manual) Monocytes % (Manual) Seg Neutrophils # Seg Neutrophils # Man Lymphocytes # (Manual) Monocytes # (Manual) Eosinophils # (Manual) Basophils # (Manual) PT INR APTT ABG pH ABG pO2 ABG HCO3 ABG O2 Saturation ABG Base Excess ABG Hemoglobin Oxyhemoglobin Sodium Potassium Chloride Carbon Dioxide BUN Creatinine Glucose POC Glucose 130 H 124 H 119 H Lactic Acid Calcium Ionized Calcium Phosphorus Magnesium Total Bilirubin AST ALT Alkaline Phosphatase Ammonia Total Creatine Kinase CK-MB (CK-2) CK-MB (CK-2) Rel Index Total Protein Albumin Urine WBC (Auto) Vancomycin Trough Salicylates Acetaminophen Plasma/Serum Alcohol Crossmatch 01/19/20 01/19/20 01/19/20 00:14 06:24 12:24 WBC RBC Hgb Hct MCH RDW Plt Count Lymph % (Auto) [place] % (Auto) [place] # Baso # Seg Neutrophils % Seg Neuts % (Manual) Lymphocytes % (Manual) Monocytes % (Manual) Seg Neutrophils # Seg Neutrophils # Man Lymphocytes # (Manual) Monocytes # (Manual) Eosinophils # (Manual) Basophils # (Manual) PT INR APTT ABG pH ABG pO2 ABG HCO3 ABG O2 Saturation ABG Base Excess ABG Hemoglobin Oxyhemoglobin Sodium Potassium Chloride Carbon Dioxide BUN Creatinine Glucose POC Glucose 114 H 144 H 132 H Lactic Acid Calcium Ionized Calcium Phosphorus Magnesium Total Bilirubin AST ALT Alkaline Phosphatase Ammonia Total Creatine Kinase CK-MB (CK-2) CK-MB (CK-2) Rel Index Total Protein Albumin Urine WBC (Auto) Vancomycin Trough Salicylates Acetaminophen Plasma/Serum Alcohol Crossmatch Allied health notes reviewed: nursing
[2020-01-19] MEDS: SERTRALINE 50 MG TAB PO SCH (13:48)
[2020-01-19] MEDS: TAMSULOSIN 0.4 MG CAP PO SCH (13:53)
[2020-01-19] MEDS: QUEtiapine 100 MG TAB FEEDTUBE SCH (21:39)
--- NOTE | 2020-01-20 08:03 | Progress Note ---
Assessment and Plan / Anoxic brain injury: suspected CT head: No acute abnormality. EEG ordered showed Generalized slowing. No seizures or epileptiform activity. Per neurology : Patient found to have intact corneal/VOR/cough reflexes, and is withdrawing lower extremities, given that patient had an out of hospital cardiac arrest, the time of which is uncertain, the likelihood of meaningful neurological recovery is somewhat low. -Patient now opening her eyes and able to follow any command by nodding head /Acute Respiratory failure -s/p intubation, s/p trach and PEG on 12/12 with mechanical ventilation, now on T-piece - CTA was done and negative for PE, - Echo quality is poor, showed diastolic dysfunction - continue weaning as tolerated /Anemia, microcytic - Status post 3 units PRBC transfusion, H&H low stable /Acute metabolic encephalopathy/toxic encephalopathy due to the above - cont supportive care /Hyperammonemia - likely from liver disease related to EtOH abuse - Patient had elevated ammonia level and treated with lactulose /Metabolic Acidosis -Alcohol ketoacidosis vs hypoprofusion -Continue to monitor /ELevated LFTs, stable now - due to ischemic hepatitis. /Leucocytosis with sepsis - Source MRSA bacteremia and MSSA pneumonia. UA showed pyuria. RUQ US showed no ascites. - Repeat TTE negative for vegetation. Completed 7 days of Ceftriaxone on 11/29/2019. -Treated with Abx vancomycin 1 gm IV q 12 hour total 2 week till 12/30/2019 /MSSA pneumonia: Status post vancomycin till 12/30/2019 /ALcohol USe Disorder - given ongoing Alcohol use almost daily, s/p IV Thiamine - monitor /Severe hypokalemia -Repleted /Seizure disorder: treat with Keppra /H. Influenzae, tracheobronchitis, treated with abx DNR CODE STATUS The high probability of a clinically significant, sudden or life threatening d eterioration of the [neurology,respiratory] system(s) required my full and direct attention, intervention and personal management. The aggregate critical care time was [32] minutes. This time is in addition to time spent performing reported procedures but includes the following: [x] Data Review and interpretation [x] Patient assessment and monitoring of vital signs [x] Documentation [x] Medication orders and management Disposition: prognosis guarded. Family okay for DNR, placement pending Brief History: 54-year-old female with a past medical history of Hypertension, Depression, Tobacco use Disorder, Alcohol use Disorder as confirmed by Daughter and pt's m other presents to the hospital status post cardiac arrest at home. EMS found pt in [place]. They were unable to intubate patient with a ET tube because she was clenching down therefore Joe airway placed. Per the ED physician who evaluated pt, Patient presented with a pulse, intermittent respirations, and bagging support via Joe airway with O2 sat of 100%. Accu-Chek of 71 obtained by EMS. She was intubated in the ER and called for admission. Following admission patient was diagnosed with anoxic brain injury, sepsis with MRSA bacteremia and MSSA pneumonia, alcoholic liver disease. Family member initially wished for full code then changed to DNR, patient treated with IV antibiotics for sepsis, status post trach and PEG on 12/13/19. Weaned off from the vent and put on T- piece. Patient is uninsured, waiting for placement, guarded prognosis. Physical exam: General appearance: Present: other (elderly female, open eyes) - EENT Eyes: no scleral icterus, no conjunctival injection, pupil not reactive ENT: clear oral mucosa, dentition normal, no oropharyngeal erythema Ears: bilateral: normal - Neck Neck: trach on place - Respiratory Respiratory effort: other (on T-piece) Respiratory: bilateral: rales - Cardiovascular Rhythm: regular Heart Sounds: Present: S1 & S2. Absent: gallop, rub Extremities: pulses intact, No edema, normal color - Gastrointestinal General gastrointestinal: Present: soft, non-tender, non-distended, normal bowel sounds - Integumentary Integumentary: clear, warm, dry - Musculoskeletal Musculoskeletal: No joint swelling or tenderness - Neurologic Neurologic: other (2+ reflexes throughout). respond to commend and nods head. Moves only right hand - Psychiatric Psychiatric: Unable to assess Subjective Date of service: 01/20/20 Principal diagnosis: Ac cardiopulmonary arrest; Ac hypoxemic resp failure; Acute encephalopathy Interval history: Patient seen and examined medical records reviewed Patient is alert and awake not in acute distress Tracheostomy on T-piece Vital signs noted Objective - Constitutional Vitals: Vital Signs - 12hr 01/19/20 01/19/20 01/19/20 20:04 20:22 21:00 Temperature Pulse Rate 111 H 109 H Respiratory 20 29 H Rate Blood Pressure 125/79 119/72 O2 Sat by Pulse 97 98 97 Oximetry O2 Sat by Pulse Oximetry [ Assessment] 01/19/20 01/19/20 01/20/20 22:00 23:00 00:00 Temperature 98.2 F Pulse Rate 112 H 105 H 109 H Respiratory 21 26 H 21 Rate Blood Pressure 106/62 120/71 86/53 O2 Sat by Pulse 97 97 94 Oximetry O2 Sat by Pulse Oximetry [ Assessment] 01/20/20 01/20/20 01/20/20 00:10 01:00 02:00 Temperature Pulse Rate 102 H 103 H Respiratory 24 22 Rate Blood Pressure 98/66 106/70 O2 Sat by Pulse 97 98 Oximetry O2 Sat by Pulse 96 Oximetry [ Assessment] 01/20/20 01/20/20 01/20/20 03:00 04:00 05:00 Temperature 98.8 F Pulse Rate 110 H 108 H 105 H Respiratory 27 H 28 H 25 H Rate Blood Pressure 105/68 107/69 111/68 O2 Sat by Pulse 98 97 98 Oximetry O2 Sat by Pulse Oximetry [ Assessment] 01/20/20 01/20/20 06:00 07:00 Temperature Pulse Rate 102 H 106 H Respiratory 26 H 18 Rate Blood Pressure 115/73 117/74 O2 Sat by Pulse 99 98 Oximetry O2 Sat by Pulse Oximetry [ Assessment] - Labs CBC & Chem 7: 01/17/20 05:32 01/11/20 07:00 Labs: Abnormal lab results 01/19/20 01/19/20 Range/Units 12:24 17:50 POC Glucose 132 H 144 H (70-105)
[2020-01-20] MEDS: MORPHINE 2 MG/1 ML INJ IV PRN (08:59)
[2020-01-20] MEDS: levETIRAcetam 500 MG/5 ML ORAL LIQD PO SCH ×2 (09:00→21:46)
[2020-01-20] MEDS: SERTRALINE 50 MG TAB PO SCH (09:00)
[2020-01-20] MEDS: LANSOPRAZOLE 30 MG SOLUTAB FEEDTUBE SCH (09:00)
[2020-01-20] MEDS: TAMSULOSIN 0.4 MG CAP PO SCH (09:01)
[2020-01-20] MEDS: hydrOXYzine PAMOATE 25 MG CAP PO SCH ×2 (09:01→21:46)
[2020-01-20] MEDS: MIRTAZAPINE 30 MG TAB PO SCH (09:01)
[2020-01-20] MEDS: GLYCOPYRROLATE 1 MG TAB PO SCH ×3 (09:07→20:00)
--- NOTE | 2020-01-20 09:51 | Progress Note ---
Assessment and Plan / Anoxic brain injury: suspected CT head: No acute abnormality. EEG ordered showed Generalized slowing. No seizures or epileptiform activity. Per neurology : Patient found to have intact corneal/VOR/cough reflexes, and is withdrawing lower extremities, given that patient had an out of hospital cardiac arrest, the time of which is uncertain, the likelihood of meaningful neurological recovery is somewhat low. -Patient now opening her eyes and able to follow minor command by nodding head /Acute Respiratory failure -s/p intubation, s/p trach and PEG on 12/12 with mechanical ventilation, now on T-piece - CTA was done and negative for PE, - Echo quality is poor, showed diastolic dysfunction - continue weaning as tolerated /Anemia, microcytic - Status post 3 units PRBC transfusion, H&H low stable /Acute metabolic encephalopathy/toxic encephalopathy due to the above - cont supportive care /Hyperammonemia - likely from liver disease related to EtOH abuse - Patient had elevated ammonia level and treated with lactulose /Metabolic Acidosis -Alcohol ketoacidosis vs hypoprofusion -Continue to monitor /ELevated LFTs, stable now - due to ischemic hepatitis. /Leucocytosis with sepsis - Source MRSA bacteremia and MSSA pneumonia. UA showed pyuria. RUQ US showed no ascites. - Repeat TTE negative for vegetation. Completed 7 days of Ceftriaxone on 11/29/2019. -Treated with Abx vancomycin 1 gm IV q 12 hour total 2 week till 12/30/2019 /MSSA pneumonia: Status post vancomycin till 12/30/2019 /ALcohol USe Disorder - given ongoing Alcohol use almost daily, s/p IV Thiamine - monitor /Severe hypokalemia -Repleted /Seizure disorder: treat with Keppra /H. Influenzae, tracheobronchitis, treated with abx DNR CODE STATUS Disposition: prognosis guarded. Family okay for DNR, discharge pending on placement. Brief History: 54-year-old female with a past medical history of Hypertension, Depression, Tobacco use Disorder, Alcohol use Disorder as confirmed by Daughter and pt's mother presents to the hospital status post cardiac arrest at home. EMS found pt [place]. They were unable to intubate patient with a ET tube because she was clenching down therefore Joe airway placed. Per the ED physician who evaluated pt, Patient presented with a pulse, intermittent respirations, and bagging support via Joe airway with O2 sat of 100%. Accu-Chek of 71 obtained by EMS. She was intubated in the ER and called for admission. Following admission patient was diagnosed with anoxic brain injury, sepsis with MRSA bacteremia and MSSA pneumonia, alcoholic liver disease. Family member initially wished for full code then changed to DNR, patient treated with IV antibiotics for sepsis, status post trach and PEG on 12/13/19. Weaned off from the vent and put on T- piece. Patient is uninsured, waiting for placement, guarded prognosis. Physical exam: General appearance: Present: other (elderly female, open eyes) - EENT Eyes: no scleral icterus, no conjunctival injection, pupil not reactive ENT: clear oral mucosa, dentition normal, no oropharyngeal erythema Ears: bilateral: normal - Neck Neck: trach on place - Respiratory Respiratory effort: other (on T-piece) Respiratory: bilateral: rales - Cardiovascular Rhythm: regular Heart Sounds: Present: S1 & S2. Absent: gallop, rub Extremities: pulses intact, No edema, normal color - Gastrointestinal General gastrointestinal: Present: soft, non-tender, non-distended, normal bowel sounds - Integumentary Integumentary: clear, warm, dry - Musculoskeletal Musculoskeletal: No joint swelling or tenderness - Neurologic Neurologic: other (2+ reflexes throughout). respond to commend and nods head. generalized weakness - Psychiatric Psychiatric: co-operative Subjective Date of service: 01/20/20 Principal diagnosis: Ac cardiopulmonary arrest; Ac hypoxemic resp failure; Acute encephalopathy Interval history: Patient seen and examined medical records reviewed Patient is alert and awake not in acute distress Tracheostomy on T-piece, Vital signs noted discharge pending on placement Objective - Constitutional Vitals: Vital Signs - 12hr 01/19/20 01/19/20 01/20/20 22:00 23:00 00:00 Temperature 98.2 F Pulse Rate 112 H 105 H 109 H Respiratory 21 26 H 21 Rate Blood Pressure 106/62 120/71 86/53 O2 Sat by Pulse 97 97 94 Oximetry O2 Sat by Pulse Oximetry [ Assessment] 01/20/20 01/20/20 01/20/20 00:10 01:00 02:00 Temperature Pulse Rate 102 H 103 H Respiratory 24 22 Rate Blood Pressure 98/66 106/70 O2 Sat by Pulse 97 98 Oximetry O2 Sat by Pulse 96 Oximetry [ Assessment] 01/20/20 01/20/20 01/20/20 03:00 04:00 05:00 Temperature 98.8 F Pulse Rate 110 H 108 H 105 H Respiratory 27 H 28 H 25 H Rate Blood Pressure 105/68 107/69 111/68 O2 Sat by Pulse 98 97 98 Oximetry O2 Sat by Pulse Oximetry [ Assessment] 01/20/20 01/20/20 01/20/20 06:00 07:00 08:00 Temperature 97.8 F Pulse Rate 102 H 106 H Respiratory 26 H 18 Rate Blood Pressure 115/73 117/74 O2 Sat by Pulse 99 98 Oximetry O2 Sat by Pulse 99 Oximetry [ Assessment] 01/20/20 09:18 Temperature Pulse Rate Respiratory Rate Blood Pressure O2 Sat by Pulse 97 Oximetry O2 Sat by Pulse Oximetry [ Assessment] - Labs CBC & Chem 7: 01/17/20 05:32 01/11/20 07:00 Labs: Abnormal lab results 01/19/20 01/19/20 Range/Units 12:24 17:50 POC Glucose 132 H 144 H (70-105)
--- NOTE | 2020-01-20 15:29 | Progress Note ---
Assessment and Plan Acute cardiopulmonary arrest with ROSC Acute hypoxemic respiratory failure on MVS Acute metabolic-toxic encephalopathy Metabolic acidosis/alcoholic acidosis/Lactic acidosis Ischemic hepatitis Leucocytosis with lactic acidosis Tobacco use disorder ALcohol use Disorder Hypokalemia High grade fevers - continue mucomyst nebs - advance diet per [employer] - continue RTC T-piece trials as tolerated - no new issues; continue care as below otherwise - repeat CXR prn at this point - Continue to wean supplemental oxygen for target O2 sat's > 90% - continue bronchodilators with routine trach care and pulmonary hygiene per RT - Slow Seroquel taper - consider Provigil - s/p Antibiotics per ID recommendations - continue Reglan for G.I. motility - Continue VTE and Stress ulcer prophylaxis - Continue enteric nutritional support - Monitor glycemic control, with target blood glucose 140-180 mg/dL while critically ill (Avoid hypoglycemia) - ABG and CXR prn - Continue to avoid nephrotoxins, adjust all medications fro GFR and CrCL - Continue to avoid benzodiazepines , as much as possible, to reduce the possibility of delirium - Continue prn analgesia per CPOT score - Continue to maintain of sleep-wake cycle, avoid delirium - PT/OT/ROM exercises- awaiting PT/OT evaluation - Continue mobility protocol and skin assessment per protocol for pressure ulcer prevention - Continue to monitor for clinical seizures - Continue Nicotine withdrawal precautions, alcohol withdrawal precautions - continue other care per attending / other consultants ..... re-evaluate in am & prn CONDITION: FAIR PROGNOSIS: IMPROVED CODE STATUS: FULL CODE Subjective Date of service: 01/20/20 Principal diagnosis: Ac cardiopulmonary arrest; Ac hypoxemic resp failure; Acute encephalopathy Interval history: Patient is seen today for: Acute cardiopulmonary arrest with ROSC; Acute hypoxemic respiratory failure; Acute metabolic-toxic encephalopathy; Ischemic h epatitis; Leucocytosis with lactic acidosis; Tobacco use disorder; Alcohol use Disorder; Hypokalemia; High grade fevers Seen and examined at bedside; 24hour events reviewed; nursing and respiratory care staff consulted; no adverse overnight events reported to me; resting pe acefully in bed; no new issues; working on oropharyngeal secretion control Objective Vital Signs - 12hr 01/20/20 01/20/20 01/20/20 04:00 05:00 06:00 Temperature 98.8 F Pulse Rate 108 H 105 H 102 H Pulse Rate [ From Monitor] Pulse Rate [ Left Dorsalis Pedis] Pulse Rate [ Left Radial] Pulse Rate [ Right Dorsalis Pedis] Pulse Rate [ Right Radial] Respiratory 28 H 25 H 26 H Rate Blood Pressure 107/69 111/68 115/73 O2 Sat by Pulse 97 98 99 Oximetry O2 Sat by Pulse Oximetry [ Assessment] 01/20/20 01/20/20 01/20/20 07:00 08:00 09:00 Temperature 97.8 F Pulse Rate 106 H 103 H 108 H Pulse Rate [ 104 H From Monitor] Pulse Rate [ 104 H Left Dorsalis Pedis] Pulse Rate [ 104 H Left Radial] Pulse Rate [ 104 H Right Dorsalis Pedis] Pulse Rate [ 104 H Right Radial] Respiratory 18 22 19 Rate Blood Pressure 117/74 112/72 114/77 O2 Sat by Pulse 98 98 99 Oximetry O2 Sat by Pulse 99 Oximetry [ Assessment] 01/20/20 01/20/20 01/20/20 09:18 10:00 11:00 Temperature Pulse Rate 110 H 107 H Pulse Rate [ From Monitor] Pulse Rate [ Left Dorsalis Pedis] Pulse Rate [ Left Radial] Pulse Rate [ Right Dorsalis Pedis] Pulse Rate [ Right Radial] Respiratory 21 25 H Rate Blood Pressure 109/72 116/73 O2 Sat by Pulse 97 94 99 Oximetry O2 Sat by Pulse Oximetry [ Assessment] 01/20/20 01/20/20 01/20/20 12:00 13:00 14:00 Temperature 98.2 F Pulse Rate 105 H 106 H 109 H Pulse Rate [ 105 H From Monitor] Pulse Rate [ 105 H Left Dorsalis Pedis] Pulse Rate [ 105 H Left Radial] Pulse Rate [ 105 H Right Dorsalis Pedis] Pulse Rate [ 105 H Right Radial] Respiratory 20 12 14 Rate Blood Pressure 107/71 112/76 131/81 O2 Sat by Pulse 99 97 94 Oximetry O2 Sat by Pulse Oximetry [ Assessment] Constitutional: no acute distress, other (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, with midline tracheostomy and mild dys-synchrony) Eyes: non-icteric ENT: oropharynx moist, other (s/p trach) Neck: supple, no lymphadenopathy, no JVD Effort: mildly labored Ascultation: Bilateral: diminished breath sounds, rhonchi Percussion: Bilateral: not dull Cardiovascular: regular rate and rhythm (tachycardia), other (S1,S2) Gastrointestinal: normoactive bowel sounds, soft, non-tender, non-distended Integumentary: normal Extremities: no cyanosis, no edema, pulses normal, no ischemia or petechiae Neurologic: other (awake; folowing simple commands) Psychiatric: other (Psychiatric: Unable to assess re: AMS) CBC and BMP: 01/24/20 04:47 01/24/20 04:47 ABG, PT/INR, D-dimer: ABG ABG pH 7.429 pH Units (7.350-7.450) 01/09/20 08:51 ABG pCO2 39.1 mm Hg 01/09/20 08:51 ABG pO2 94.3 mm Hg (80.0-90.0) H 01/09/20 08:51 ABG O2 Saturation 97.4 % (95.0-99.0) 01/09/20 08:51 PT/INR, D-dimer PT 17.0 Sec. (12.2-14.9) H 11/23/19 03:47 INR 1.36 (0.87-1.13) H 11/23/19 03:47 Abnormal lab findings: Abnormal Labs 11/22/19 11/22/19 11/22/19 23:17 23:18 23:27 WBC 21.2 H RBC 3.59 L Hgb 9.8 L Hct MCH 27 L RDW 18.6 H Plt Count 454 H Lymph % (Auto) Brown % (Auto) Brown # Baso # Seg Neutrophils % Seg Neuts % (Manual) 86.0 H Lymphocytes % (Manual) 9.0 L Monocytes % (Manual) Seg Neutrophils # Seg Neutrophils # Man 18.2 H Lymphocytes # (Manual) Monocytes # (Manual) 1.1 H Eosinophils # (Manual) Basophils # (Manual) PT INR APTT ABG pH ABG pO2 ABG HCO3 ABG O2 Saturation ABG Base Excess ABG Hemoglobin Oxyhemoglobin Sodium Potassium Chloride Carbon Dioxide BUN Creatinine Glucose POC Glucose 53 L Lactic Acid Calcium Ionized Calcium Phosphorus Magnesium Total Bilirubin AST ALT Alkaline Phosphatase Ammonia Total Creatine Kinase CK-MB (CK-2) CK-MB (CK-2) Rel Index Total Protein Albumin Urine WBC (Auto) 40.0 H Vancomycin Trough Salicylates Acetaminophen Plasma/Serum Alcohol Crossmatch 11/22/19 11/22/19 11/22/19 23:27 23:27 23:27 WBC RBC Hgb Hct MCH RDW Plt Count Lymph % (Auto) Brown % (Auto) Brown # Baso # Seg Neutrophils % Seg Neuts % (Manual) Lymphocytes % (Manual) Monocytes % (Manual) Seg Neutrophils # Seg Neutrophils # Man Lymphocytes # (Manual) Monocytes # (Manual) Eosinophils # (Manual) Basophils # (Manual) PT INR APTT ABG pH ABG pO2 ABG HCO3 ABG O2 Saturation ABG Base Excess ABG Hemoglobin Oxyhemoglobin Sodium Potassium 2.4 L* Chloride 85.1 L Carbon Dioxide 19 L BUN Creatinine 0.5 L Glucose 261 H POC Glucose Lactic Acid Calcium Ionized Calcium Phosphorus Magnesium Total Bilirubin AST 609 H ALT 152 H Alkaline Phosphatase 160 H Ammonia 117.0 H Total Creatine Kinase 139 H CK-MB (CK-2) 8.3 H CK-MB (CK-2) Rel Index 5.9 H Total Protein Albumin 3.6 L Urine WBC (Auto) Vancomycin Trough Salicylates < 0.3 L Acetaminophen Plasma/Serum Alcohol Crossmatch 11/22/19 11/22/19 11/23/19 23:27 23:27 01:10 WBC RBC Hgb Hct MCH RDW Plt Count Lymph % (Auto) Brown % (Auto) Brown # Baso # Seg Neutrophils % Seg Neuts % (Manual) Lymphocytes % (Manual) Monocytes % (Manual) Seg Neutrophils # Seg Neutrophils # Man Lymphocytes # (Manual) Monocytes # (Manual) Eosinophils # (Manual) Basophils # (Manual) PT INR APTT ABG pH 7.273 L ABG pO2 209.7 H ABG HCO3 ABG O2 Saturation 99.2 H ABG Base Excess -3.9 L ABG Hemoglobin 10.6 L Oxyhemoglobin 93.9 L Sodium Potassium Chloride Carbon Dioxide BUN Creatinine Glucose POC Glucose Lactic Acid Calcium Ionized Calcium Phosphorus Magnesium Total Bilirubin AST ALT Alkaline Phosphatase Ammonia Total Creatine Kinase CK-MB (CK-2) CK-MB (CK-2) Rel Index Total Protein Albumin Urine WBC (Auto) Vancomycin Trough Salicylates Acetaminophen < 5.0 L Plasma/Serum Alcohol 0.08 H Crossmatch 11/23/19 11/23/19 11/23/19 01:19 01:19 03:47 WBC RBC Hgb Hct MCH RDW Plt Count Lymph % (Auto) Brown % (Auto) Brown # Baso # Seg Neutrophils % Seg Neuts % (Manual) Lymphocytes % (Manual) Monocytes % (Manual) Seg Neutrophils # Seg Neutrophils # Man Lymphocytes # (Manual) Monocytes # (Manual) Eosinophils # (Manual) Basophils # (Manual) PT 16.3 H INR 1.29 H APTT ABG pH ABG pO2 ABG HCO3 ABG O2 Saturation ABG Base Excess ABG Hemoglobin Oxyhemoglobin Sodium Potassium Chloride Carbon Dioxide BUN Creatinine Glucose POC Glucose Lactic Acid 2.10 H* 5.00 H* Calcium Ionized Calcium Phosphorus Magnesium Total Bilirubin AST ALT Alkaline Phosphatase Ammonia Total Creatine Kinase CK-MB (CK-2) CK-MB (CK-2) Rel Index Total Protein Albumin Urine WBC (Auto) Vancomycin Trough Salicylates Acetaminophen Plasma/Serum Alcohol Crossmatch 11/23/19 11/23/19 11/23/19 03:47 03:47 04:53 WBC RBC Hgb 9.4 L Hct MCH RDW Plt Count Lymph % (Auto) Brown % (Auto) Brown # Baso # Seg Neutrophils % Seg Neuts % (Manual) Lymphocytes % (Manual) Monocytes % (Manual) Seg Neutrophils # Seg Neutrophils # Man Lymphocytes # (Manual) Monocytes # (Manual) Eosinophils # (Manual) Basophils # (Manual) PT 17.0 H INR 1.36 H APTT 128.2 H* ABG pH ABG pO2 ABG HCO3 ABG O2 Saturation ABG Base Excess ABG Hemoglobin Oxyhemoglobin Sodium Potassium Chloride Carbon Dioxide 18 L BUN Creatinine 0.5 L Glucose 105 H POC Glucose Lactic Acid Calcium 8.3 L Ionized Calcium Phosphorus 2.40 L Magnesium Total Bilirubin 1.30 H AST 761 H ALT 158 H Alkaline Phosphatase 143 H Ammonia Total Creatine Kinase CK-MB (CK-2) CK-MB (CK-2) Rel Index Total Protein Albumin 2.8 L Urine WBC (Auto) Vancomycin Trough Salicylates Acetaminophen Plasma/Serum Alcohol Crossmatch 11/23/19 11/23/19 11/23/19 05:12 06:32 06:32 WBC 16.8 H RBC 3.31 L Hgb 8.9 L Hct 28.7 L MCH 27 L RDW 18.6 H Plt Count Lymph % (Auto) Brown % (Auto) Brown # Baso # Seg Neutrophils % Seg Neuts % (Manual) 94.0 H Lymphocytes % (Manual) 1.0 L Monocytes % (Manual) Seg Neutrophils # Seg Neutrophils # Man 15.8 H Lymphocytes # (Manual) 0.2 L Monocytes # (Manual) Eosinophils # (Manual) Basophils # (Manual) PT INR APTT ABG pH ABG pO2 ABG HCO3 ABG O2 Saturation ABG Base Excess -3.2 L ABG Hemoglobin 9.0 L Oxyhemoglobin 93.6 L Sodium Potassium Chloride Carbon Dioxide BUN Creatinine Glucose POC Glucose Lactic Acid Calcium Ionized Calcium 4.5 L Phosphorus Magnesium Total Bilirubin AST ALT Alkaline Phosphatase Ammonia Total Creatine Kinase CK-MB (CK-2) CK-MB (CK-2) Rel Index Total Protein Albumin Urine WBC (Auto) Vancomycin Trough Salicylates Acetaminophen Plasma/Serum Alcohol Crossmatch 11/23/19 11/24/19 11/24/19 06:32 04:35 04:35 WBC RBC Hgb Hct MCH RDW Plt Count Lymph % (Auto) Brown % (Auto) Brown # Baso # Seg Neutrophils % Seg Neuts % (Manual) Lymphocytes % (Manual) Monocytes % (Manual) Seg Neutrophils # Seg Neutrophils # Man Lymphocytes # (Manual) Monocytes # (Manual) Eosinophils # (Manual) Basophils # (Manual) PT INR APTT ABG pH ABG pO2 ABG HCO3 ABG O2 Saturation ABG Base Excess ABG Hemoglobin Oxyhemoglobin Sodium Potassium Chloride Carbon Dioxide BUN Creatinine Glucose POC Glucose Lactic Acid 3.30 H* Calcium Ionized Calcium Phosphorus Magnesium 1.40 L Total Bilirubin AST ALT Alkaline Phosphatase Ammonia 98.0 H Total Creatine Kinase CK-MB (CK-2) CK-MB (CK-2) Rel Index Total Protein Albumin Urine WBC (Auto) Vancomycin Trough Salicylates Acetaminophen Plasma/Serum Alcohol Crossmatch 11/24/19 11/25/19 11/25/19 05:22 04:34 05:05 WBC 17.3 H RBC 2.88 L Hgb 7.8 L Hct 24.6 L MCH 27 L RDW 18.5 H Plt Count Lymph % (Auto) 7.7 L Brown % (Auto) 9.7 H Brown # 1.7 H Baso # Seg Neutrophils % 82.2 H Seg Neuts % (Manual) Lymphocytes % (Manual) Monocytes % (Manual) Seg Neutrophils # 14.2 H Seg Neutrophils # Man Lymphocytes # (Manual) Monocytes # (Manual) Eosinophils # (Manual) Basophils # (Manual) PT INR APTT ABG pH 7.475 H ABG pO2 ABG HCO3 29.4 H 32.3 H ABG O2 Saturation ABG Base Excess 5.4 H 6.9 H ABG Hemoglobin 9.0 L 10.6 L Oxyhemoglobin 94.3 L Sodium Potassium Chloride Carbon Dioxide BUN Creatinine Glucose POC Glucose Lactic Acid Calcium Ionized Calcium Phosphorus Magnesium Total Bilirubin AST ALT Alkaline Phosphatase Ammonia Total Creatine Kinase CK-MB (CK-2) CK-MB (CK-2) Rel Index Total Protein Albumin Urine WBC (Auto) Vancomycin Trough Salicylates Acetaminophen Plasma/Serum Alcohol Crossmatch 11/25/19 11/25/19 11/26/19 05:05 22:46 03:31 WBC RBC Hgb Hct MCH RDW Plt Count Lymph % (Auto) Brown % (Auto) Brown # Baso # Seg Neutrophils % Seg Neuts % (Manual) Lymphocytes % (Manual) Monocytes % (Manual) Seg Neutrophils # Seg Neutrophils # Man Lymphocytes # (Manual) Monocytes # (Manual) Eosinophils # (Manual) Basophils # (Manual) PT INR APTT ABG pH 7.459 H ABG pO2 ABG HCO3 34.2 H ABG O2 Saturation ABG Base Excess 9.4 H ABG Hemoglobin 7.6 L Oxyhemoglobin 94.8 L Sodium 152 H D 147 H Potassium 2.3 L* D 2.8 L* D Chloride 107.8 H Carbon Dioxide 31 H D 33 H BUN Creatinine 0.6 L 0.6 L Glucose 148 H 177 H POC Glucose Lactic Acid Calcium Ionized Calcium Phosphorus Magnesium Total Bilirubin AST 105 H ALT 71 H Alkaline Phosphatase 155 H Ammonia Total Creatine Kinase CK-MB (CK-2) CK-MB (CK-2) Rel Index Total Protein 5.2 L D Albumin 2.9 L Urine WBC (Auto) Vancomycin Trough Salicylates Acetaminophen Plasma/Serum Alcohol Crossmatch 11/26/19 11/26/19 11/27/19 08:24 08:24 04:20 WBC 12.0 H RBC 3.00 L Hgb 8.0 L 9.3 L Hct 25.9 L 29.7 L MCH 27 L RDW 18.5 H Plt Count Lymph % (Auto) Brown % (Auto) Brown # Baso # Seg Neutrophils % Seg Neuts % (Manual) 89.0 H Lymphocytes % (Manual) 4.0 L Monocytes % (Manual) Seg Neutrophils # Seg Neutrophils # Man 10.7 H Lymphocytes # (Manual) 0.5 L Monocytes # (Manual) Eosinophils # (Manual) Basophils # (Manual) PT INR APTT ABG pH ABG pO2 ABG HCO3 ABG O2 Saturation ABG Base Excess ABG Hemoglobin Oxyhemoglobin Sodium 146 H Potassium 3.4 L D Chloride Carbon Dioxide BUN Creatinine 0.5 L Glucose 165 H POC Glucose Lactic Acid Calcium Ionized Calcium Phosphorus Magnesium Total Bilirubin AST 57 H ALT Alkaline Phosphatase 166 H Ammonia Total Creatine Kinase CK-MB (CK-2) CK-MB (CK-2) Rel Index Total Protein Albumin 2.9 L Urine WBC (Auto) Vancomycin Trough Salicylates Acetaminophen Plasma/Serum Alcohol Crossmatch 11/27/19 11/27/19 11/27/19 04:28 04:28 04:42 WBC RBC Hgb Hct MCH RDW Plt Count Lymph % (Auto) Brown % (Auto) Brown # Baso # Seg Neutrophils % Seg Neuts % (Manual) Lymphocytes % (Manual) Monocytes % (Manual) Seg Neutrophils # Seg Neutrophils # Man Lymphocytes # (Manual) Monocytes # (Manual) Eosinophils # (Manual) Basophils # (Manual) PT INR APTT ABG pH 7.470 H ABG pO2 74.0 L ABG HCO3 33.8 H ABG O2 Saturation ABG Base Excess 9.1 H ABG Hemoglobin 8.7 L Oxyhemoglobin 94.7 L Sodium 146 H Potassium 2.9 L* Chloride Carbon Dioxide BUN 25 H Creatinine Glucose 213 H POC Glucose Lactic Acid Calcium Ionized Calcium Phosphorus 1.00 L Magnesium Total Bilirubin AST ALT Alkaline Phosphatase Ammonia Total Creatine Kinase CK-MB (CK-2) CK-MB (CK-2) Rel Index Total Protein Albumin Urine WBC (Auto) Vancomycin Trough Salicylates Acetaminophen Plasma/Serum Alcohol Crossmatch 11/27/19 11/27/19 11/27/19 05:37 12:20 15:46 WBC RBC Hgb Hct MCH RDW Plt Count Lymph % (Auto) Brown % (Auto) Brown # Baso # Seg Neutrophils % Seg Neuts % (Manual) Lymphocytes % (Manual) Monocytes % (Manual) Seg Neutrophils # Seg Neutrophils # Man Lymphocytes # (Manual) Monocytes # (Manual) Eosinophils # (Manual) Basophils # (Manual) PT INR APTT ABG pH ABG pO2 ABG HCO3 ABG O2 Saturation ABG Base Excess ABG Hemoglobin Oxyhemoglobin Sodium 146 H Potassium 3.5 L D Chloride Carbon Dioxide BUN 24 H Creatinine 0.6 L Glucose 187 H POC Glucose 117 H 220 H Lactic Acid Calcium Ionized Calcium Phosphorus Magnesium Total Bilirubin AST ALT Alkaline Phosphatase Ammonia Total Creatine Kinase CK-MB (CK-2) CK-MB (CK-2) Rel Index Total Protein Albumin Urine WBC (Auto) Vancomycin Trough Salicylates Acetaminophen Plasma/Serum Alcohol Crossmatch 11/27/19 11/28/19 11/28/19 17:28 05:00 05:02 WBC RBC Hgb Hct MCH RDW Plt Count Lymph % (Auto) Brown % (Auto) Brown # Baso # Seg Neutrophils % Seg Neuts % (Manual) Lymphocytes % (Manual) Monocytes % (Manual) Seg Neutrophils # Seg Neutrophils # Man Lymphocytes # (Manual) Monocytes # (Manual) Eosinophils # (Manual) Basophils # (Manual) PT INR APTT ABG pH ABG pO2 72.4 L ABG HCO3 33.6 H ABG O2 Saturation 94.1 L ABG Base Excess 7.3 H ABG Hemoglobin Oxyhemoglobin 91.8 L Sodium 146 H Potassium 3.3 L Chloride Carbon Dioxide BUN 25 H Creatinine 0.6 L Glucose 176 H POC Glucose 198 H Lactic Acid Calcium Ionized Calcium Phosphorus Magnesium Total Bilirubin AST ALT Alkaline Phosphatase Ammonia Total Creatine Kinase CK-MB (CK-2) CK-MB (CK-2) Rel Index Total Protein Albumin Urine WBC (Auto) Vancomycin Trough Salicylates Acetaminophen Plasma/Serum Alcohol Crossmatch 11/28/19 11/28/19 11/29/19 05:02 18:55 10:43 WBC 15.2 H 19.0 H RBC 3.06 L 3.01 L Hgb 8.3 L 8.3 L Hct 27.0 L 26.4 L MCH 27 L RDW 19.0 H 19.7 H Plt Count 479 H 611 H Lymph % (Auto) Brown % (Auto) Brown # Baso # Seg Neutrophils % Seg Neuts % (Manual) 92.0 H Lymphocytes % (Manual) 2.0 L Monocytes % (Manual) Seg Neutrophils # Seg Neutrophils # Man 14.0 H Lymphocytes # (Manual) 0.3 L Monocytes # (Manual) Eosinophils # (Manual) Basophils # (Manual) PT INR APTT ABG pH ABG pO2 ABG HCO3 ABG O2 Saturation ABG Base Excess ABG Hemoglobin Oxyhemoglobin Sodium Potassium Chloride Carbon Dioxide BUN Creatinine Glucose POC Glucose 138 H Lactic Acid Calcium Ionized Calcium Phosphorus Magnesium Total Bilirubin AST ALT Alkaline Phosphatase Ammonia Total Creatine Kinase CK-MB (CK-2) CK-MB (CK-2) Rel Index Total Protein Albumin Urine WBC (Auto) Vancomycin Trough Salicylates Acetaminophen Plasma/Serum Alcohol Crossmatch 11/29/19 11/29/19 11/29/19 10:43 12:27 19:25 WBC RBC Hgb Hct MCH RDW Plt Count Lymph % (Auto) Brown % (Auto) Brown # Baso # Seg Neutrophils % Seg Neuts % (Manual) Lymphocytes % (Manual) Monocytes % (Manual) Seg Neutrophils # Seg Neutrophils # Man Lymphocytes # (Manual) Monocytes # (Manual) Eosinophils # (Manual) Basophils # (Manual) PT INR APTT ABG pH ABG pO2 ABG HCO3 ABG O2 Saturation ABG Base Excess ABG Hemoglobin Oxyhemoglobin Sodium Potassium 2.8 L* Chloride Carbon Dioxide BUN 20 H Creatinine 0.5 L Glucose 121 H POC Glucose 128 H 120 H Lactic Acid Calcium Ionized Calcium Phosphorus Magnesium Total Bilirubin AST ALT Alkaline Phosphatase Ammonia Total Creatine Kinase CK-MB (CK-2) CK-MB (CK-2) Rel Index Total Protein Albumin Urine WBC (Auto) Vancomycin Trough Salicylates Acetaminophen Plasma/Serum Alcohol Crossmatch 11/29/19 11/30/19 11/30/19 23:46 04:10 05:02 WBC RBC Hgb Hct MCH RDW Plt Count Lymph % (Auto) Brown % (Auto) Brown # Baso # Seg Neutrophils % Seg Neuts % (Manual) Lymphocytes % (Manual) Monocytes % (Manual) Seg Neutrophils # Seg Neutrophils # Man Lymphocytes # (Manual) Monocytes # (Manual) Eosinophils # (Manual) Basophils # (Manual) PT INR APTT ABG pH ABG pO2 76.3 L ABG HCO3 32.5 H ABG O2 Saturation ABG Base Excess 6.9 H ABG Hemoglobin 8.0 L Oxyhemoglobin 92.6 L Sodium Potassium Chloride Carbon Dioxide BUN Creatinine Glucose POC Glucose 116 H 128 H Lactic Acid Calcium Ionized Calcium Phosphorus Magnesium Total Bilirubin AST ALT Alkaline Phosphatase Ammonia Total Creatine Kinase CK-MB (CK-2) CK-MB (CK-2) Rel Index Total Protein Albumin Urine WBC (Auto) Vancomycin Trough Salicylates Acetaminophen Plasma/Serum Alcohol Crossmatch 11/30/19 11/30/19 11/30/19 05:25 05:25 12:59 WBC 18.4 H RBC 3.10 L Hgb 8.5 L Hct 27.5 L MCH 27 L RDW 20.9 H Plt Count 691 H Lymph % (Auto) 7.1 L Brown % (Auto) 7.7 H Brown # 1.4 H Baso # Seg Neutrophils % 83.4 H Seg Neuts % (Manual) Lymphocytes % (Manual) Monocytes % (Manual) Seg Neutrophils # 15.4 H Seg Neutrophils # Man Lymphocytes # (Manual) Monocytes # (Manual) Eosinophils # (Manual) Basophils # (Manual) PT INR APTT ABG pH ABG pO2 ABG HCO3 ABG O2 Saturation ABG Base Excess ABG Hemoglobin Oxyhemoglobin Sodium 146 H Potassium Chloride 107.2 H Carbon Dioxide BUN Creatinine 0.5 L Glucose 132 H POC Glucose 124 H Lactic Acid Calcium Ionized Calcium Phosphorus Magnesium Total Bilirubin AST 246 H ALT 274 H Alkaline Phosphatase 203 H Ammonia Total Creatine Kinase CK-MB (CK-2) CK-MB (CK-2) Rel Index Total Protein 5.4 L Albumin 2.9 L Urine WBC (Auto) Vancomycin Trough Salicylates Acetaminophen Plasma/Serum Alcohol Crossmatch 11/30/19 12/01/19 12/01/19 17:53 00:05 05:10 WBC RBC Hgb Hct MCH RDW Plt Count Lymph % (Auto) Brown % (Auto) Brown # Baso # Seg Neutrophils % Seg Neuts % (Manual) Lymphocytes % (Manual) Monocytes % (Manual) Seg Neutrophils # Seg Neutrophils # Man Lymphocytes # (Manual) Monocytes # (Manual) Eosinophils # (Manual) Basophils # (Manual) PT INR APTT ABG pH ABG pO2 ABG HCO3 ABG O2 Saturation ABG Base Excess ABG Hemoglobin Oxyhemoglobin Sodium Potassium Chloride Carbon Dioxide BUN Creatinine Glucose POC Glucose 113 H 143 H 145 H Lactic Acid Calcium Ionized Calcium Phosphorus Magnesium Total Bilirubin AST ALT Alkaline Phosphatase Ammonia Total Creatine Kinase CK-MB (CK-2) CK-MB (CK-2) Rel Index Total Protein Albumin Urine WBC (Auto) Vancomycin Trough Salicylates Acetaminophen Plasma/Serum Alcohol Crossmatch 12/01/19 12/01/19 12/01/19 05:33 08:23 08:23 WBC 22.7 H RBC 2.88 L Hgb 7.9 L Hct 25.2 L MCH 27 L RDW 21.0 H Plt Count 732 H Lymph % (Auto) Brown % (Auto) Brown # Baso # Seg Neutrophils % Seg Neuts % (Manual) 91.0 H Lymphocytes % (Manual) 3.0 L Monocytes % (Manual) Seg Neutrophils # Seg Neutrophils # Man 20.7 H Lymphocytes # (Manual) 0.7 L Monocytes # (Manual) 1.1 H Eosinophils # (Manual) Basophils # (Manual) PT INR APTT ABG pH ABG pO2 68.6 L ABG HCO3 34.1 H ABG O2 Saturation ABG Base Excess 9.0 H ABG Hemoglobin 6.5 L Oxyhemoglobin 94.7 L Sodium Potassium Chloride Carbon Dioxide BUN Creatinine 0.5 L Glucose 125 H POC Glucose Lactic Acid Calcium Ionized Calcium Phosphorus Magnesium Total Bilirubin AST ALT Alkaline Phosphatase Ammonia Total Creatine Kinase CK-MB (CK-2) CK-MB (CK-2) Rel Index Total Protein Albumin Urine WBC (Auto) Vancomycin Trough Salicylates Acetaminophen Plasma/Serum Alcohol Crossmatch 12/01/19 12/01/19 12/01/19 13:21 17:54 20:59 WBC RBC Hgb Hct MCH RDW Plt Count Lymph % (Auto) Brown % (Auto) Brown # Baso # Seg Neutrophils % Seg Neuts % (Manual) Lymphocytes % (Manual) Monocytes % (Manual) Seg Neutrophils # Seg Neutrophils # Man Lymphocytes # (Manual) Monocytes # (Manual) Eosinophils # (Manual) Basophils # (Manual) PT INR APTT ABG pH ABG pO2 78.3 L ABG HCO3 33.8 H ABG O2 Saturation 94.9 L ABG Base Excess 7.9 H ABG Hemoglobin 11.5 L Oxyhemoglobin 92.3 L Sodium Potassium Chloride Carbon Dioxide BUN Creatinine Glucose POC Glucose 111 H 115 H Lactic Acid Calcium Ionized Calcium Phosphorus Magnesium Total Bilirubin AST ALT Alkaline Phosphatase Ammonia Total Creatine Kinase CK-MB (CK-2) CK-MB (CK-2) Rel Index Total Protein Albumin Urine WBC (Auto) Vancomycin Trough Salicylates Acetaminophen Plasma/Serum Alcohol Crossmatch 12/02/19 12/03/19 12/04/19 12:55 20:00 04:26 WBC 15.2 H RBC 2.69 L Hgb 7.4 L Hct 23.6 L MCH 27 L RDW 19.9 H Plt Count 838 H Lymph % (Auto) Brown % (Auto) Brown # Baso # Seg Neutrophils % Seg Neuts % (Manual) Lymphocytes % (Manual) Monocytes % (Manual) Seg Neutrophils # Seg Neutrophils # Man Lymphocytes # (Manual) Monocytes # (Manual) Eosinophils # (Manual) Basophils # (Manual) PT INR APTT ABG pH ABG pO2 68.3 L ABG HCO3 33.5 H ABG O2 Saturation 93.5 L ABG Base Excess 8.4 H ABG Hemoglobin 7.3 L Oxyhemoglobin 90.9 L Sodium Potassium Chloride Carbon Dioxide BUN Creatinine Glucose POC Glucose 107 H Lactic Acid Calcium Ionized Calcium Phosphorus Magnesium Total Bilirubin AST ALT Alkaline Phosphatase Ammonia Total Creatine Kinase CK-MB (CK-2) CK-MB (CK-2) Rel Index Total Protein Albumin Urine WBC (Auto) Vancomycin Trough Salicylates Acetaminophen Plasma/Serum Alcohol Crossmatch 12/04/19 12/04/19 12/04/19 04:26 07:45 12:02 WBC 15.9 H RBC 2.88 L Hgb 7.9 L Hct 25.1 L MCH RDW 20.4 H Plt Count 839 H Lymph % (Auto) 11.3 L Brown % (Auto) 15.2 H Brown # 2.4 H Baso # Seg Neutrophils % 72.4 H Seg Neuts % (Manual) Lymphocytes % (Manual) Monocytes % (Manual) Seg Neutrophils # 11.5 H Seg Neutrophils # Man Lymphocytes # (Manual) Monocytes # (Manual) Eosinophils # (Manual) Basophils # (Manual) PT INR APTT ABG pH ABG pO2 ABG HCO3 ABG O2 Saturation ABG Base Excess ABG Hemoglobin Oxyhemoglobin Sodium Potassium Chloride 96.5 L Carbon Dioxide BUN 21 H Creatinine 0.6 L Glucose 107 H POC Glucose 138 H Lactic Acid Calcium Ionized Calcium Phosphorus Magnesium Total Bilirubin AST ALT Alkaline Phosphatase Ammonia Total Creatine Kinase CK-MB (CK-2) CK-MB (CK-2) Rel Index Total Protein Albumin Urine WBC (Auto) Vancomycin Trough Salicylates Acetaminophen Plasma/Serum Alcohol Crossmatch 12/04/19 12/05/19 12/05/19 18:16 11:55 18:36 WBC RBC Hgb Hct MCH RDW Plt Count Lymph % (Auto) Brown % (Auto) Brown # Baso # Seg Neutrophils % Seg Neuts % (Manual) Lymphocytes % (Manual) Monocytes % (Manual) Seg Neutrophils # Seg Neutrophils # Man Lymphocytes # (Manual) Monocytes # (Manual) Eosinophils # (Manual) Basophils # (Manual) PT INR APTT ABG pH ABG pO2 ABG HCO3 ABG O2 Saturation ABG Base Excess ABG Hemoglobin Oxyhemoglobin Sodium Potassium Chloride Carbon Dioxide BUN Creatinine Glucose POC Glucose 135 H 125 H 135 H Lactic Acid Calcium Ionized Calcium Phosphorus Magnesium Total Bilirubin AST ALT Alkaline Phosphatase Ammonia Total Creatine Kinase CK-MB (CK-2) CK-MB (CK-2) Rel Index Total Protein Albumin Urine WBC (Auto) Vancomycin Trough Salicylates Acetaminophen Plasma/Serum Alcohol Crossmatch 12/05/19 12/06/19 12/06/19 23:30 04:14 05:43 WBC RBC Hgb Hct MCH RDW Plt Count Lymph % (Auto) Brown % (Auto) Brown # Baso # Seg Neutrophils % Seg Neuts % (Manual) Lymphocytes % (Manual) Monocytes % (Manual) Seg Neutrophils # Seg Neutrophils # Man Lymphocytes # (Manual) Monocytes # (Manual) Eosinophils # (Manual) Basophils # (Manual) PT INR APTT ABG pH ABG pO2 ABG HCO3 ABG O2 Saturation ABG Base Excess ABG Hemoglobin Oxyhemoglobin Sodium Potassium 5.6 H Chloride 95.0 L Carbon Dioxide BUN 48 H Creatinine 1.3 H D Glucose POC Glucose 126 H 121 H Lactic Acid Calcium Ionized Calcium Phosphorus Magnesium Total Bilirubin AST 89 H ALT 98 H Alkaline Phosphatase 476 H Ammonia Total Creatine Kinase CK-MB (CK-2) CK-MB (CK-2) Rel Index Total Protein Albumin 2.8 L Urine WBC (Auto) Vancomycin Trough Salicylates Acetaminophen Plasma/Serum Alcohol Crossmatch 12/06/19 12/06/19 12/07/19 10:39 14:34 00:19 WBC 17.3 H RBC 2.60 L Hgb 7.1 L Hct 22.7 L MCH 27 L RDW 20.1 H Plt Count 832 H Lymph % (Auto) Brown % (Auto) Brown # Baso # Seg Neutrophils % Seg Neuts % (Manual) Lymphocytes % (Manual) Monocytes % (Manual) Seg Neutrophils # Seg Neutrophils # Man Lymphocytes # (Manual) Monocytes # (Manual) Eosinophils # (Manual) Basophils # (Manual) PT INR APTT ABG pH ABG pO2 ABG HCO3 ABG O2 Saturation ABG Base Excess ABG Hemoglobin Oxyhemoglobin Sodium Potassium Chloride Carbon Dioxide BUN Creatinine Glucose POC Glucose 128 H 136 H Lactic Acid Calcium Ionized Calcium Phosphorus Magnesium Total Bilirubin AST ALT Alkaline Phosphatase Ammonia Total Creatine Kinase CK-MB (CK-2) CK-MB (CK-2) Rel Index Total Protein Albumin Urine WBC (Auto) Vancomycin Trough Salicylates Acetaminophen Plasma/Serum Alcohol Crossmatch 12/07/19 12/07/19 12/07/19 03:44 03:44 05:53 WBC 16.2 H RBC 2.56 L Hgb 7.1 L Hct 22.3 L MCH RDW 19.4 H Plt Count 782 H Lymph % (Auto) Brown % (Auto) Brown # Baso # Seg Neutrophils % Seg Neuts % (Manual) Lymphocytes % (Manual) Monocytes % (Manual) Seg Neutrophils # Seg Neutrophils # Man Lymphocytes # (Manual) Monocytes # (Manual) Eosinophils # (Manual) Basophils # (Manual) PT INR APTT ABG pH ABG pO2 ABG HCO3 ABG O2 Saturation ABG Base Excess ABG Hemoglobin Oxyhemoglobin Sodium Potassium Chloride 95.6 L Carbon Dioxide BUN 56 H Creatinine 1.4 H Glucose 120 H POC Glucose 128 H Lactic Acid Calcium 10.3 H Ionized Calcium Phosphorus Magnesium Total Bilirubin AST ALT Alkaline Phosphatase Ammonia Total Creatine Kinase CK-MB (CK-2) CK-MB (CK-2) Rel Index Total Protein Albumin Urine WBC (Auto) Vancomycin Trough Salicylates Acetaminophen Plasma/Serum Alcohol Crossmatch 12/07/19 12/07/19 12/08/19 12:54 23:47 00:20 WBC RBC Hgb Hct MCH RDW Plt Count Lymph % (Auto) Brown % (Auto) Brown # Baso # Seg Neutrophils % Seg Neuts % (Manual) Lymphocytes % (Manual) Monocytes % (Manual) Seg Neutrophils # Seg Neutrophils # Man Lymphocytes # (Manual) Monocytes # (Manual) Eosinophils # (Manual) Basophils # (Manual) PT INR APTT ABG pH ABG pO2 ABG HCO3 ABG O2 Saturation ABG Base Excess ABG Hemoglobin Oxyhemoglobin Sodium Potassium Chloride Carbon Dioxide BUN Creatinine Glucose POC Glucose 128 H 130 H 124 H Lactic Acid Calcium Ionized Calcium Phosphorus Magnesium Total Bilirubin AST ALT Alkaline Phosphatase Ammonia Total Creatine Kinase CK-MB (CK-2) CK-MB (CK-2) Rel Index Total Protein Albumin Urine WBC (Auto) Vancomycin Trough Salicylates Acetaminophen Plasma/Serum Alcohol Crossmatch 12/08/19 12/08/19 12/08/19 06:38 12:04 18:26 WBC RBC Hgb Hct MCH RDW Plt Count Lymph % (Auto) Brown % (Auto) Brown # Baso # Seg Neutrophils % Seg Neuts % (Manual) Lymphocytes % (Manual) Monocytes % (Manual) Seg Neutrophils # Seg Neutrophils # Man Lymphocytes # (Manual) Monocytes # (Manual) Eosinophils # (Manual) Basophils # (Manual) PT INR APTT ABG pH ABG pO2 ABG HCO3 ABG O2 Saturation ABG Base Excess ABG Hemoglobin Oxyhemoglobin Sodium Potassium Chloride Carbon Dioxide BUN Creatinine Glucose POC Glucose 137 H 129 H 150 H Lactic Acid Calcium Ionized Calcium Phosphorus Magnesium Total Bilirubin AST ALT Alkaline Phosphatase Ammonia Total Creatine Kinase CK-MB (CK-2) CK-MB (CK-2) Rel Index Total Protein Albumin Urine WBC (Auto) Vancomycin Trough Salicylates Acetaminophen Plasma/Serum Alcohol Crossmatch 12/09/19 12/09/19 12/09/19 00:56 05:34 06:13 WBC RBC Hgb Hct MCH RDW Plt Count Lymph % (Auto) Brown % (Auto) Brown # Baso # Seg Neutrophils % Seg Neuts % (Manual) Lymphocytes % (Manual) Monocytes % (Manual) Seg Neutrophils # Seg Neutrophils # Man Lymphocytes # (Manual) Monocytes # (Manual) Eosinophils # (Manual) Basophils # (Manual) PT INR APTT ABG pH ABG pO2 ABG HCO3 ABG O2 Saturation ABG Base Excess ABG Hemoglobin Oxyhemoglobin Sodium 146 H Potassium Chloride Carbon Dioxide BUN 66 H Creatinine 1.9 H Glucose 116 H POC Glucose 130 H 130 H Lactic Acid Calcium Ionized Calcium Phosphorus Magnesium Total Bilirubin AST ALT Alkaline Phosphatase Ammonia Total Creatine Kinase CK-MB (CK-2) CK-MB (CK-2) Rel Index Total Protein Albumin Urine WBC (Auto) Vancomycin Trough Salicylates Acetaminophen Plasma/Serum Alcohol Crossmatch 12/09/19 12/09/19 12/10/19 11:52 17:50 00:14 WBC RBC Hgb Hct MCH RDW Plt Count Lymph % (Auto) Brown % (Auto) Brown # Baso # Seg Neutrophils % Seg Neuts % (Manual) Lymphocytes % (Manual) Monocytes % (Manual) Seg Neutrophils # Seg Neutrophils # Man Lymphocytes # (Manual) Monocytes # (Manual) Eosinophils # (Manual) Basophils # (Manual) PT INR APTT ABG pH ABG pO2 ABG HCO3 ABG O2 Saturation ABG Base Excess ABG Hemoglobin Oxyhemoglobin Sodium Potassium Chloride Carbon Dioxide BUN Creatinine Glucose POC Glucose 135 H 120 H 116 H Lactic Acid Calcium Ionized Calcium Phosphorus Magnesium Total Bilirubin AST ALT Alkaline Phosphatase Ammonia Total Creatine Kinase CK-MB (CK-2) CK-MB (CK-2) Rel Index Total Protein Albumin Urine WBC (Auto) Vancomycin Trough Salicylates Acetaminophen Plasma/Serum Alcohol Crossmatch 12/10/19 12/10/19 12/10/19 05:38 11:38 17:34 WBC RBC Hgb Hct MCH RDW Plt Count Lymph % (Auto) Brown % (Auto) Brown # Baso # Seg Neutrophils % Seg Neuts % (Manual) Lymphocytes % (Manual) Monocytes % (Manual) Seg Neutrophils # Seg Neutrophils # Man Lymphocytes # (Manual) Monocytes # (Manual) Eosinophils # (Manual) Basophils # (Manual) PT INR APTT ABG pH ABG pO2 ABG HCO3 ABG O2 Saturation ABG Base Excess ABG Hemoglobin Oxyhemoglobin Sodium Potassium Chloride Carbon Dioxide BUN Creatinine Glucose POC Glucose 115 H 112 H 130 H Lactic Acid Calcium Ionized Calcium Phosphorus Magnesium Total Bilirubin AST ALT Alkaline Phosphatase Ammonia Total Creatine Kinase CK-MB (CK-2) CK-MB (CK-2) Rel Index Total Protein Albumin Urine WBC (Auto) Vancomycin Trough Salicylates Acetaminophen Plasma/Serum Alcohol Crossmatch 12/11/19 12/11/19 12/11/19 00:20 05:31 12:22 WBC RBC Hgb Hct MCH RDW Plt Count Lymph % (Auto) Brown % (Auto) Brown # Baso # Seg Neutrophils % Seg Neuts % (Manual) Lymphocytes % (Manual) Monocytes % (Manual) Seg Neutrophils # Seg Neutrophils # Man Lymphocytes # (Manual) Monocytes # (Manual) Eosinophils # (Manual) Basophils # (Manual) PT INR APTT ABG pH ABG pO2 ABG HCO3 ABG O2 Saturation ABG Base Excess ABG Hemoglobin Oxyhemoglobin Sodium Potassium Chloride Carbon Dioxide BUN Creatinine Glucose POC Glucose 124 H 132 H 128 H Lactic Acid Calcium Ionized Calcium Phosphorus Magnesium Total Bilirubin AST ALT Alkaline Phosphatase Ammonia Total Creatine Kinase CK-MB (CK-2) CK-MB (CK-2) Rel Index Total Protein Albumin Urine WBC (Auto) Vancomycin Trough Salicylates Acetaminophen Plasma/Serum Alcohol Crossmatch 12/11/19 12/11/19 12/12/19 18:04 23:42 03:51 WBC RBC Hgb Hct MCH RDW Plt Count Lymph % (Auto) Brown % (Auto) Brown # Baso # Seg Neutrophils % Seg Neuts % (Manual) Lymphocytes % (Manual) Monocytes % (Manual) Seg Neutrophils # Seg Neutrophils # Man Lymphocytes # (Manual) Monocytes # (Manual) Eosinophils # (Manual) Basophils # (Manual) PT INR APTT ABG pH ABG pO2 ABG HCO3 ABG O2 Saturation ABG Base Excess ABG Hemoglobin Oxyhemoglobin Sodium 149 H Potassium Chloride Carbon Dioxide 20 L D BUN 77 H Creatinine 2.8 H Glucose POC Glucose 133 H 154 H Lactic Acid Calcium Ionized Calcium Phosphorus Magnesium Total Bilirubin AST ALT Alkaline Phosphatase Ammonia Total Creatine Kinase CK-MB (CK-2) CK-MB (CK-2) Rel Index Total Protein Albumin Urine WBC (Auto) Vancomycin Trough Salicylates Acetaminophen Plasma/Serum Alcohol Crossmatch 12/12/19 12/12/19 12/12/19 05:18 05:26 10:30 WBC 18.0 H RBC 2.51 L Hgb 6.8 L Hct 22.0 L MCH 27 L RDW 19.9 H Plt Count 582 H Lymph % (Auto) Brown % (Auto) Brown # Baso # Seg Neutrophils % Seg Neuts % (Manual) Lymphocytes % (Manual) Monocytes % (Manual) Seg Neutrophils # Seg Neutrophils # Man Lymphocytes # (Manual) Monocytes # (Manual) Eosinophils # (Manual) Basophils # (Manual) PT INR APTT ABG pH ABG pO2 ABG HCO3 ABG O2 Saturation ABG Base Excess ABG Hemoglobin Oxyhemoglobin Sodium Potassium Chloride Carbon Dioxide BUN Creatinine Glucose POC Glucose 135 H Lactic Acid Calcium Ionized Calcium Phosphorus Magnesium Total Bilirubin AST ALT Alkaline Phosphatase Ammonia Total Creatine Kinase CK-MB (CK-2) CK-MB (CK-2) Rel Index Total Protein Albumin Urine WBC (Auto) Vancomycin Trough Salicylates Acetaminophen Plasma/Serum Alcohol Crossmatch See Detail 12/12/19 12/12/19 12/12/19 11:44 18:10 23:21 WBC RBC Hgb Hct MCH RDW Plt Count Lymph % (Auto) Brown % (Auto) Brown # Baso # Seg Neutrophils % Seg Neuts % (Manual) Lymphocytes % (Manual) Monocytes % (Manual) Seg Neutrophils # Seg Neutrophils # Man Lymphocytes # (Manual) Monocytes # (Manual) Eosinophils # (Manual) Basophils # (Manual) PT INR APTT ABG pH ABG pO2 ABG HCO3 ABG O2 Saturation ABG Base Excess ABG Hemoglobin Oxyhemoglobin Sodium Potassium Chloride Carbon Dioxide BUN Creatinine Glucose POC Glucose 108 H 107 H 126 H Lactic Acid Calcium Ionized Calcium Phosphorus Magnesium Total Bilirubin AST ALT Alkaline Phosphatase Ammonia Total Creatine Kinase CK-MB (CK-2) CK-MB (CK-2) Rel Index Total Protein Albumin Urine WBC (Auto) Vancomycin Trough Salicylates Acetaminophen Plasma/Serum Alcohol Crossmatch 12/13/19 12/13/19 12/13/19 05:41 07:48 07:48 WBC 38.3 H RBC 2.37 L Hgb 6.3 L Hct 20.9 L MCH 27 L RDW 20.2 H Plt Count 546 H Lymph % (Auto) Brown % (Auto) Brown # Baso # Seg Neutrophils % Seg Neuts % (Manual) 93.0 H Lymphocytes % (Manual) 1.0 L Monocytes % (Manual) Seg Neutrophils # Seg Neutrophils # Man 35.6 H Lymphocytes # (Manual) 0.4 L Monocytes # (Manual) Eosinophils # (Manual) Basophils # (Manual) 0.4 H PT INR APTT ABG pH ABG pO2 ABG HCO3 ABG O2 Saturation ABG Base Excess ABG Hemoglobin Oxyhemoglobin Sodium 152 H Potassium 3.1 L D Chloride 111.9 H Carbon Dioxide 21 L BUN 53 H Creatinine 1.9 H Glucose 141 H POC Glucose 128 H Lactic Acid Calcium Ionized Calcium Phosphorus Magnesium Total Bilirubin AST ALT Alkaline Phosphatase 316 H Ammonia Total Creatine Kinase CK-MB (CK-2) CK-MB (CK-2) Rel Index Total Protein Albumin 2.4 L Urine WBC (Auto) Vancomycin Trough Salicylates Acetaminophen Plasma/Serum Alcohol Crossmatch 12/13/19 12/13/19 12/14/19 18:17 23:19 05:36 WBC RBC Hgb Hct MCH RDW Plt Count Lymph % (Auto) Brown % (Auto) Brown # Baso # Seg Neutrophils % Seg Neuts % (Manual) Lymphocytes % (Manual) Monocytes % (Manual) Seg Neutrophils # Seg Neutrophils # Man Lymphocytes # (Manual) Monocytes # (Manual) Eosinophils # (Manual) Basophils # (Manual) PT INR APTT ABG pH ABG pO2 ABG HCO3 ABG O2 Saturation ABG Base Excess ABG Hemoglobin Oxyhemoglobin Sodium Potassium Chloride Carbon Dioxide BUN Creatinine Glucose POC Glucose 141 H 158 H 182 H Lactic Acid Calcium Ionized Calcium Phosphorus Magnesium Total Bilirubin AST ALT Alkaline Phosphatase Ammonia Total Creatine Kinase CK-MB (CK-2) CK-MB (CK-2) Rel Index Total Protein Albumin Urine WBC (Auto) Vancomycin Trough Salicylates Acetaminophen Plasma/Serum Alcohol Crossmatch 12/14/19 12/14/19 12/14/19 08:48 08:48 10:31 WBC 33.3 H RBC 2.70 L Hgb 7.9 L 8.0 L Hct 25.3 L 24.0 L MCH RDW 19.2 H Plt Count 476 H Lymph % (Auto) Brown % (Auto) Brown # Baso # Seg Neutrophils % Seg Neuts % (Manual) Lymphocytes % (Manual) Monocytes % (Manual) Seg Neutrophils # Seg Neutrophils # Man Lymphocytes # (Manual) Monocytes # (Manual) Eosinophils # (Manual) Basophils # (Manual) PT INR APTT ABG pH ABG pO2 ABG HCO3 ABG O2 Saturation ABG Base Excess ABG Hemoglobin Oxyhemoglobin Sodium 153 H Potassium 2.5 L* Chloride 114.9 H Carbon Dioxide 20 L BUN 38 H Creatinine 1.4 H Glucose 177 H POC Glucose Lactic Acid Calcium Ionized Calcium Phosphorus Magnesium Total Bilirubin AST ALT Alkaline Phosphatase Ammonia Total Creatine Kinase CK-MB (CK-2) CK-MB (CK-2) Rel Index Total Protein Albumin Urine WBC (Auto) Vancomycin Trough Salicylates Acetaminophen Plasma/Serum Alcohol Crossmatch 12/14/19 12/14/19 12/14/19 12:57 16:15 17:50 WBC RBC Hgb Hct MCH RDW Plt Count Lymph % (Auto) Brown % (Auto) Brown # Baso # Seg Neutrophils % Seg Neuts % (Manual) Lymphocytes % (Manual) Monocytes % (Manual) Seg Neutrophils # Seg Neutrophils # Man Lymphocytes # (Manual) Monocytes # (Manual) Eosinophils # (Manual) Basophils # (Manual) PT INR APTT ABG pH ABG pO2 73.6 L ABG HCO3 ABG O2 Saturation ABG Base Excess ABG Hemoglobin 7.6 L Oxyhemoglobin 94.0 L Sodium Potassium Chloride Carbon Dioxide BUN Creatinine Glucose POC Glucose 174 H 150 H Lactic Acid Calcium Ionized Calcium Phosphorus Magnesium Total Bilirubin AST ALT Alkaline Phosphatase Ammonia Total Creatine Kinase CK-MB (CK-2) CK-MB (CK-2) Rel Index Total Protein Albumin Urine WBC (Auto) Vancomycin Trough Salicylates Acetaminophen Plasma/Serum Alcohol Crossmatch 12/15/19 12/15/19 12/15/19 00:28 05:27 07:23 WBC 30.0 H RBC 3.11 L Hgb 8.6 L Hct 27.7 L MCH RDW 20.0 H Plt Count 473 H Lymph % (Auto) Brown % (Auto) Brown # Baso # Seg Neutrophils % Seg Neuts % (Manual) Lymphocytes % (Manual) Monocytes % (Manual) Seg Neutrophils # Seg Neutrophils # Man Lymphocytes # (Manual) Monocytes # (Manual) Eosinophils # (Manual) Basophils # (Manual) PT INR APTT ABG pH ABG pO2 ABG HCO3 ABG O2 Saturation ABG Base Excess ABG Hemoglobin Oxyhemoglobin Sodium Potassium Chloride Carbon Dioxide BUN Creatinine Glucose POC Glucose 167 H 148 H Lactic Acid Calcium Ionized Calcium Phosphorus Magnesium Total Bilirubin AST ALT Alkaline Phosphatase Ammonia Total Creatine Kinase CK-MB (CK-2) CK-MB (CK-2) Rel Index Total Protein Albumin Urine WBC (Auto) Vancomycin Trough Salicylates Acetaminophen Plasma/Serum Alcohol Crossmatch 12/15/19 12/15/19 12/15/19 07:23 12:21 17:41 WBC RBC Hgb Hct MCH RDW Plt Count Lymph % (Auto) Brown % (Auto) Brown # Baso # Seg Neutrophils % Seg Neuts % (Manual) Lymphocytes % (Manual) Monocytes % (Manual) Seg Neutrophils # Seg Neutrophils # Man Lymphocytes # (Manual) Monocytes # (Manual) Eosinophils # (Manual) Basophils # (Manual) PT INR APTT ABG pH ABG pO2 ABG HCO3 ABG O2 Saturation ABG Base Excess ABG Hemoglobin Oxyhemoglobin Sodium 147 H Potassium 3.5 L D Chloride 111.2 H Carbon Dioxide 19 L BUN 29 H Creatinine Glucose 126 H POC Glucose 154 H 144 H Lactic Acid Calcium Ionized Calcium Phosphorus Magnesium Total Bilirubin AST ALT Alkaline Phosphatase Ammonia Total Creatine Kinase CK-MB (CK-2) CK-MB (CK-2) Rel Index Total Protein Albumin Urine WBC (Auto) Vancomycin Trough Salicylates Acetaminophen Plasma/Serum Alcohol Crossmatch 12/16/19 12/16/19 12/16/19 00:22 05:30 05:44 WBC 30.8 H RBC 2.58 L Hgb 7.1 L Hct 22.7 L MCH RDW 19.6 H Plt Count 451 H Lymph % (Auto) Brown % (Auto) Brown # Baso # Seg Neutrophils % Seg Neuts % (Manual) Lymphocytes % (Manual) Monocytes % (Manual) Seg Neutrophils # Seg Neutrophils # Man Lymphocytes # (Manual) Monocytes # (Manual) Eosinophils # (Manual) Basophils # (Manual) PT INR APTT ABG pH ABG pO2 ABG HCO3 ABG O2 Saturation ABG Base Excess ABG Hemoglobin Oxyhemoglobin Sodium Potassium Chloride Carbon Dioxide BUN Creatinine Glucose POC Glucose 139 H 126 H Lactic Acid Calcium Ionized Calcium Phosphorus Magnesium Total Bilirubin AST ALT Alkaline Phosphatase Ammonia Total Creatine Kinase CK-MB (CK-2) CK-MB (CK-2) Rel Index Total Protein Albumin Urine WBC (Auto) Vancomycin Trough Salicylates Acetaminophen Plasma/Serum Alcohol Crossmatch 12/16/19 12/16/19 12/16/19 05:44 11:48 17:37 WBC RBC Hgb Hct MCH RDW Plt Count Lymph % (Auto) Brown % (Auto) Brown # Baso # Seg Neutrophils % Seg Neuts % (Manual) Lymphocytes % (Manual) Monocytes % (Manual) Seg Neutrophils # Seg Neutrophils # Man Lymphocytes # (Manual) Monocytes # (Manual) Eosinophils # (Manual) Basophils # (Manual) PT INR APTT ABG pH ABG pO2 ABG HCO3 ABG O2 Saturation ABG Base Excess ABG Hemoglobin Oxyhemoglobin Sodium Potassium 3.4 L Chloride 109.2 H Carbon Dioxide 19 L BUN 27 H Creatinine Glucose 124 H POC Glucose 125 H 148 H Lactic Acid Calcium Ionized Calcium Phosphorus Magnesium Total Bilirubin AST ALT Alkaline Phosphatase Ammonia Total Creatine Kinase CK-MB (CK-2) CK-MB (CK-2) Rel Index Total Protein Albumin Urine WBC (Auto) Vancomycin Trough Salicylates Acetaminophen Plasma/Serum Alcohol Crossmatch 12/16/19 12/17/19 12/17/19 23:43 05:28 12:47 WBC RBC Hgb Hct MCH RDW Plt Count Lymph % (Auto) Brown % (Auto) Brown # Baso # Seg Neutrophils % Seg Neuts % (Manual) Lymphocytes % (Manual) Monocytes % (Manual) Seg Neutrophils # Seg Neutrophils # Man Lymphocytes # (Manual) Monocytes # (Manual) Eosinophils # (Manual) Basophils # (Manual) PT INR APTT ABG pH ABG pO2 ABG HCO3 ABG O2 Saturation ABG Base Excess ABG Hemoglobin Oxyhemoglobin Sodium Potassium Chloride Carbon Dioxide BUN Creatinine Glucose POC Glucose 142 H 140 H 125 H Lactic Acid Calcium Ionized Calcium Phosphorus Magnesium Total Bilirubin AST ALT Alkaline Phosphatase Ammonia Total Creatine Kinase CK-MB (CK-2) CK-MB (CK-2) Rel Index Total Protein Albumin Urine WBC (Auto) Vancomycin Trough Salicylates Acetaminophen Plasma/Serum Alcohol Crossmatch 12/17/19 12/17/19 12/17/19 17:05 18:00 Unknown WBC RBC Hgb Hct MCH RDW Plt Count Lymph % (Auto) Brown % (Auto) Brown # Baso # Seg Neutrophils % Seg Neuts % (Manual) Lymphocytes % (Manual) Monocytes % (Manual) Seg Neutrophils # Seg Neutrophils # Man Lymphocytes # (Manual) Monocytes # (Manual) Eosinophils # (Manual) Basophils # (Manual) PT INR APTT ABG pH ABG pO2 68.1 L ABG HCO3 ABG O2 Saturation 93.7 L ABG Base Excess ABG Hemoglobin 5.0 L Oxyhemoglobin 91.7 L Sodium Potassium Chloride Carbon Dioxide BUN Creatinine Glucose POC Glucose 140 H Lactic Acid Calcium Ionized Calcium Phosphorus Magnesium Total Bilirubin AST ALT Alkaline Phosphatase Ammonia Total Creatine Kinase CK-MB (CK-2) CK-MB (CK-2) Rel Index Total Protein Albumin Urine WBC (Auto) Vancomycin Trough Salicylates Acetaminophen Plasma/Serum Alcohol Crossmatch 12/18/19 12/18/19 12/18/19 00:16 04:53 04:53 WBC 28.6 H RBC 2.27 L Hgb 6.3 L Hct 19.5 L* MCH RDW 20.0 H Plt Count 497 H Lymph % (Auto) Brown % (Auto) Brown # Baso # Seg Neutrophils % Seg Neuts % (Manual) Lymphocytes % (Manual) Monocytes % (Manual) Seg Neutrophils # Seg Neutrophils # Man Lymphocytes # (Manual) Monocytes # (Manual) Eosinophils # (Manual) Basophils # (Manual) PT INR APTT ABG pH ABG pO2 ABG HCO3 ABG O2 Saturation ABG Base Excess ABG Hemoglobin Oxyhemoglobin Sodium Potassium Chloride 107.9 H Carbon Dioxide 20 L BUN 27 H Creatinine 0.6 L Glucose 116 H POC Glucose 123 H Lactic Acid Calcium Ionized Calcium Phosphorus Magnesium Total Bilirubin AST ALT Alkaline Phosphatase Ammonia Total Creatine Kinase CK-MB (CK-2) CK-MB (CK-2) Rel Index Total Protein Albumin Urine WBC (Auto) Vancomycin Trough Salicylates Acetaminophen Plasma/Serum Alcohol Crossmatch 12/18/19 12/18/19 12/18/19 06:38 11:22 12:08 WBC RBC Hgb Hct MCH RDW Plt Count Lymph % (Auto) Brown % (Auto) Brown # Baso # Seg Neutrophils % Seg Neuts % (Manual) Lymphocytes % (Manual) Monocytes % (Manual) Seg Neutrophils # Seg Neutrophils # Man Lymphocytes # (Manual) Monocytes # (Manual) Eosinophils # (Manual) Basophils # (Manual) PT INR APTT ABG pH ABG pO2 ABG HCO3 ABG O2 Saturation ABG Base Excess ABG Hemoglobin Oxyhemoglobin Sodium Potassium Chloride Carbon Dioxide BUN Creatinine Glucose POC Glucose 120 H 127 H Lactic Acid Calcium Ionized Calcium Phosphorus Magnesium Total Bilirubin AST ALT Alkaline Phosphatase Ammonia Total Creatine Kinase CK-MB (CK-2) CK-MB (CK-2) Rel Index Total Protein Albumin Urine WBC (Auto) Vancomycin Trough Salicylates Acetaminophen Plasma/Serum Alcohol Crossmatch See Detail 12/18/19 12/18/19 12/18/19 14:05 17:49 23:53 WBC RBC Hgb Hct MCH RDW Plt Count Lymph % (Auto) Brown % (Auto) Brown # Baso # Seg Neutrophils % Seg Neuts % (Manual) Lymphocytes % (Manual) Monocytes % (Manual) Seg Neutrophils # Seg Neutrophils # Man Lymphocytes # (Manual) Monocytes # (Manual) Eosinophils # (Manual) Basophils # (Manual) PT INR APTT ABG pH 7.267 L ABG pO2 69.8 L ABG HCO3 ABG O2 Saturation 88.4 L ABG Base Excess ABG Hemoglobin 7.1 L Oxyhemoglobin 86.4 L Sodium Potassium Chloride Carbon Dioxide BUN Creatinine Glucose POC Glucose 157 H 128 H Lactic Acid Calcium Ionized Calcium Phosphorus Magnesium Total Bilirubin AST ALT Alkaline Phosphatase Ammonia Total Creatine Kinase CK-MB (CK-2) CK-MB (CK-2) Rel Index Total Protein Albumin Urine WBC (Auto) Vancomycin Trough Salicylates Acetaminophen Plasma/Serum Alcohol Crossmatch 12/19/19 12/19/19 12/19/19 03:37 03:37 05:25 WBC 31.3 H RBC 2.60 L Hgb 7.6 L Hct 23.0 L MCH RDW 19.4 H Plt Count 530 H Lymph % (Auto) Brown % (Auto) Brown # Baso # Seg Neutrophils % Seg Neuts % (Manual) Lymphocytes % (Manual) Monocytes % (Manual) Seg Neutrophils # Seg Neutrophils # Man Lymphocytes # (Manual) Monocytes # (Manual) Eosinophils # (Manual) Basophils # (Manual) PT INR APTT ABG pH ABG pO2 ABG HCO3 ABG O2 Saturation ABG Base Excess ABG Hemoglobin Oxyhemoglobin Sodium Potassium Chloride Carbon Dioxide 18 L BUN 36 H Creatinine Glucose 111 H POC Glucose 123 H Lactic Acid Calcium Ionized Calcium Phosphorus Magnesium Total Bilirubin AST ALT Alkaline Phosphatase Ammonia Total Creatine Kinase CK-MB (CK-2) CK-MB (CK-2) Rel Index Total Protein Albumin Urine WBC (Auto) Vancomycin Trough Salicylates Acetaminophen Plasma/Serum Alcohol Crossmatch 12/19/19 12/19/19 12/20/19 12:59 18:33 00:00 WBC RBC Hgb Hct MCH RDW Plt Count Lymph % (Auto) Brown % (Auto) Brown # Baso # Seg Neutrophils % Seg Neuts % (Manual) Lymphocytes % (Manual) Monocytes % (Manual) Seg Neutrophils # Seg Neutrophils # Man Lymphocytes # (Manual) Monocytes # (Manual) Eosinophils # (Manual) Basophils # (Manual) PT INR APTT ABG pH ABG pO2 ABG HCO3 ABG O2 Saturation ABG Base Excess ABG Hemoglobin Oxyhemoglobin Sodium Potassium Chloride Carbon Dioxide BUN Creatinine Glucose POC Glucose 130 H 118 H 135 H Lactic Acid Calcium Ionized Calcium Phosphorus Magnesium Total Bilirubin AST ALT Alkaline Phosphatase Ammonia Total Creatine Kinase CK-MB (CK-2) CK-MB (CK-2) Rel Index Total Protein Albumin Urine WBC (Auto) Vancomycin Trough Salicylates Acetaminophen Plasma/Serum Alcohol Crossmatch 12/20/19 12/20/19 12/20/19 05:46 12:31 18:07 WBC RBC Hgb Hct MCH RDW Plt Count Lymph % (Auto) Brown % (Auto) Brown # Baso # Seg Neutrophils % Seg Neuts % (Manual) Lymphocytes % (Manual) Monocytes % (Manual) Seg Neutrophils # Seg Neutrophils # Man Lymphocytes # (Manual) Monocytes # (Manual) Eosinophils # (Manual) Basophils # (Manual) PT INR APTT ABG pH ABG pO2 ABG HCO3 ABG O2 Saturation ABG Base Excess ABG Hemoglobin Oxyhemoglobin Sodium Potassium Chloride Carbon Dioxide BUN Creatinine Glucose POC Glucose 131 H 128 H 134 H Lactic Acid Calcium Ionized Calcium Phosphorus Magnesium Total Bilirubin AST ALT Alkaline Phosphatase Ammonia Total Creatine Kinase CK-MB (CK-2) CK-MB (CK-2) Rel Index Total Protein Albumin Urine WBC (Auto) Vancomycin Trough Salicylates Acetaminophen Plasma/Serum Alcohol Crossmatch 12/21/19 12/21/19 12/21/19 03:28 03:28 07:21 WBC 29.4 H RBC 2.30 L Hgb 6.8 L Hct 20.2 L MCH RDW 20.2 H Plt Count 746 H Lymph % (Auto) Brown % (Auto) Brown # Baso # Seg Neutrophils % Seg Neuts % (Manual) 85.0 H Lymphocytes % (Manual) 8.0 L Monocytes % (Manual) Seg Neutrophils # Seg Neutrophils # Man 25.0 H Lymphocytes # (Manual) Monocytes # (Manual) 1.5 H Eosinophils # (Manual) 0.6 H Basophils # (Manual) PT INR APTT ABG pH ABG pO2 ABG HCO3 ABG O2 Saturation ABG Base Excess ABG Hemoglobin Oxyhemoglobin Sodium Potassium Chloride Carbon Dioxide 17 L BUN 57 H Creatinine 1.4 H D Glucose POC Glucose 124 H Lactic Acid Calcium Ionized Calcium Phosphorus Magnesium Total Bilirubin AST ALT Alkaline Phosphatase Ammonia Total Creatine Kinase CK-MB (CK-2) CK-MB (CK-2) Rel Index Total Protein Albumin Urine WBC (Auto) Vancomycin Trough Salicylates Acetaminophen Plasma/Serum Alcohol Crossmatch 12/21/19 12/21/19 12/21/19 08:56 12:06 14:53 WBC RBC Hgb 7.2 L Hct 22.9 L MCH RDW Plt Count Lymph % (Auto) Brown % (Auto) Brown # Baso # Seg Neutrophils % Seg Neuts % (Manual) Lymphocytes % (Manual) Monocytes % (Manual) Seg Neutrophils # Seg Neutrophils # Man Lymphocytes # (Manual) Monocytes # (Manual) Eosinophils # (Manual) Basophils # (Manual) PT INR APTT ABG pH ABG pO2 ABG HCO3 ABG O2 Saturation ABG Base Excess ABG Hemoglobin Oxyhemoglobin Sodium Potassium Chloride Carbon Dioxide BUN Creatinine Glucose POC Glucose 116 H Lactic Acid Calcium Ionized Calcium Phosphorus Magnesium Total Bilirubin AST ALT Alkaline Phosphatase Ammonia Total Creatine Kinase CK-MB (CK-2) CK-MB (CK-2) Rel Index Total Protein Albumin Urine WBC (Auto) Vancomycin Trough 33.8 H Salicylates Acetaminophen Plasma/Serum Alcohol Crossmatch 12/21/19 12/21/19 12/21/19 14:54 17:27 23:49 WBC RBC Hgb Hct MCH RDW Plt Count Lymph % (Auto) Brown % (Auto) Brown # Baso # Seg Neutrophils % Seg Neuts % (Manual) Lymphocytes % (Manual) Monocytes % (Manual) Seg Neutrophils # Seg Neutrophils # Man Lymphocytes # (Manual) Monocytes # (Manual) Eosinophils # (Manual) Basophils # (Manual) PT INR APTT ABG pH ABG pO2 ABG HCO3 ABG O2 Saturation ABG Base Excess ABG Hemoglobin Oxyhemoglobin Sodium Potassium Chloride Carbon Dioxide BUN Creatinine Glucose POC Glucose 145 H 127 H Lactic Acid Calcium Ionized Calcium Phosphorus Magnesium Total Bilirubin AST ALT Alkaline Phosphatase Ammonia Total Creatine Kinase CK-MB (CK-2) CK-MB (CK-2) Rel Index Total Protein Albumin Urine WBC (Auto) Vancomycin Trough Salicylates Acetaminophen Plasma/Serum Alcohol Crossmatch See Detail 12/22/19 12/22/19 12/22/19 04:43 05:56 08:40 WBC RBC Hgb Hct MCH RDW Plt Count Lymph % (Auto) Brown % (Auto) Brown # Baso # Seg Neutrophils % Seg Neuts % (Manual) Lymphocytes % (Manual) Monocytes % (Manual) Seg Neutrophils # Seg Neutrophils # Man Lymphocytes # (Manual) Monocytes # (Manual) Eosinophils # (Manual) Basophils # (Manual) PT INR APTT ABG pH ABG pO2 75.6 L ABG HCO3 ABG O2 Saturation ABG Base Excess -2.6 L ABG Hemoglobin 6.8 L Oxyhemoglobin 94.6 L Sodium Potassium Chloride Carbon Dioxide 17 L BUN 60 H Creatinine 1.4 H Glucose 126 H POC Glucose 153 H Lactic Acid Calcium Ionized Calcium Phosphorus Magnesium Total Bilirubin AST ALT Alkaline Phosphatase Ammonia Total Creatine Kinase CK-MB (CK-2) CK-MB (CK-2) Rel Index Total Protein Albumin Urine WBC (Auto) Vancomycin Trough Salicylates Acetaminophen Plasma/Serum Alcohol Crossmatch 12/22/19 12/22/19 12/23/19 12:07 17:49 04:30 WBC 22.4 H RBC 2.68 L Hgb 7.6 L Hct 22.9 L MCH RDW 19.9 H Plt Count 998 H Lymph % (Auto) Brown % (Auto) Brown # Baso # Seg Neutrophils % Seg Neuts % (Manual) 88.0 H Lymphocytes % (Manual) 2.0 L Monocytes % (Manual) 9.0 H Seg Neutrophils # Seg Neutrophils # Man 19.7 H Lymphocytes # (Manual) 0.4 L Monocytes # (Manual) 2.0 H Eosinophils # (Manual) Basophils # (Manual) PT INR APTT ABG pH ABG pO2 ABG HCO3 ABG O2 Saturation ABG Base Excess ABG Hemoglobin Oxyhemoglobin Sodium Potassium Chloride Carbon Dioxide BUN Creatinine Glucose POC Glucose 140 H 116 H Lactic Acid Calcium Ionized Calcium Phosphorus Magnesium Total Bilirubin AST ALT Alkaline Phosphatase Ammonia Total Creatine Kinase CK-MB (CK-2) CK-MB (CK-2) Rel Index Total Protein Albumin Urine WBC (Auto) Vancomycin Trough Salicylates Acetaminophen Plasma/Serum Alcohol Crossmatch 12/23/19 12/23/19 12/23/19 04:30 12:00 18:06 WBC RBC Hgb Hct MCH RDW Plt Count Lymph % (Auto) Brown % (Auto) Brown # Baso # Seg Neutrophils % Seg Neuts % (Manual) Lymphocytes % (Manual) Monocytes % (Manual) Seg Neutrophils # Seg Neutrophils # Man Lymphocytes # (Manual) Monocytes # (Manual) Eosinophils # (Manual) Basophils # (Manual) PT INR APTT ABG pH ABG pO2 ABG HCO3 ABG O2 Saturation ABG Base Excess ABG Hemoglobin Oxyhemoglobin Sodium Potassium 5.2 H Chloride Carbon Dioxide 21 L BUN 69 H Creatinine 1.5 H Glucose 117 H POC Glucose 128 H 138 H Lactic Acid Calcium Ionized Calcium Phosphorus Magnesium Total Bilirubin AST ALT Alkaline Phosphatase Ammonia Total Creatine Kinase CK-MB (CK-2) CK-MB (CK-2) Rel Index Total Protein Albumin Urine WBC (Auto) Vancomycin Trough Salicylates Acetaminophen Plasma/Serum Alcohol Crossmatch 12/23/19 12/24/19 12/24/19 23:46 04:31 05:08 WBC RBC Hgb Hct MCH RDW Plt Count Lymph % (Auto) Brown % (Auto) Brown # Baso # Seg Neutrophils % Seg Neuts % (Manual) Lymphocytes % (Manual) Monocytes % (Manual) Seg Neutrophils # Seg Neutrophils # Man Lymphocytes # (Manual) Monocytes # (Manual) Eosinophils # (Manual) Basophils # (Manual) PT INR APTT ABG pH ABG pO2 ABG HCO3 ABG O2 Saturation ABG Base Excess ABG Hemoglobin Oxyhemoglobin Sodium Potassium 5.3 H Chloride 107.6 H Carbon Dioxide 20 L BUN 72 H Creatinine 1.6 H Glucose 120 H POC Glucose 120 H 140 H Lactic Acid Calcium Ionized Calcium Phosphorus Magnesium Total Bilirubin AST ALT Alkaline Phosphatase Ammonia Total Creatine Kinase CK-MB (CK-2) CK-MB (CK-2) Rel Index Total Protein Albumin Urine WBC (Auto) Vancomycin Trough Salicylates Acetaminophen Plasma/Serum Alcohol Crossmatch 12/24/19 12/24/19 12/25/19 11:58 17:49 03:47 WBC 36.2 H RBC 2.92 L Hgb 8.4 L Hct 26.1 L MCH RDW 20.2 H Plt Count 942 H Lymph % (Auto) Brown % (Auto) Brown # Baso # Seg Neutrophils % Seg Neuts % (Manual) 97.5 H Lymphocytes % (Manual) 1.0 L Monocytes % (Manual) Seg Neutrophils # Seg Neutrophils # Man 35.3 H Lymphocytes # (Manual) 0.4 L Monocytes # (Manual) Eosinophils # (Manual) Basophils # (Manual) PT INR APTT ABG pH ABG pO2 ABG HCO3 ABG O2 Saturation ABG Base Excess ABG Hemoglobin Oxyhemoglobin Sodium Potassium Chloride Carbon Dioxide BUN Creatinine Glucose POC Glucose 146 H 131 H Lactic Acid Calcium Ionized Calcium Phosphorus Magnesium Total Bilirubin AST ALT Alkaline Phosphatase Ammonia Total Creatine Kinase CK-MB (CK-2) CK-MB (CK-2) Rel Index Total Protein Albumin Urine WBC (Auto) Vancomycin Trough Salicylates Acetaminophen Plasma/Serum Alcohol Crossmatch 12/25/19 12/25/19 12/25/19 03:47 05:30 12:23 WBC RBC Hgb Hct MCH RDW Plt Count Lymph % (Auto) Brown % (Auto) Brown # Baso # Seg Neutrophils % Seg Neuts % (Manual) Lymphocytes % (Manual) Monocytes % (Manual) Seg Neutrophils # Seg Neutrophils # Man Lymphocytes # (Manual) Monocytes # (Manual) Eosinophils # (Manual) Basophils # (Manual) PT INR APTT ABG pH ABG pO2 ABG HCO3 ABG O2 Saturation ABG Base Excess ABG Hemoglobin Oxyhemoglobin Sodium Potassium Chloride Carbon Dioxide 15 L BUN 70 H Creatinine 1.7 H Glucose 153 H POC Glucose 169 H 135 H Lactic Acid Calcium Ionized Calcium Phosphorus Magnesium Total Bilirubin AST ALT Alkaline Phosphatase Ammonia Total Creatine Kinase CK-MB (CK-2) CK-MB (CK-2) Rel Index Total Protein Albumin Urine WBC (Auto) Vancomycin Trough Salicylates Acetaminophen Plasma/Serum Alcohol Crossmatch 12/25/19 12/25/19 12/26/19 17:37 23:29 09:47 WBC 22.1 H RBC 2.83 L Hgb 7.9 L Hct 25.5 L MCH RDW 20.0 H Plt Count 894 H Lymph % (Auto) Brown % (Auto) Brown # Baso # Seg Neutrophils % Seg Neuts % (Manual) Lymphocytes % (Manual) Monocytes % (Manual) Seg Neutrophils # Seg Neutrophils # Man Lymphocytes # (Manual) Monocytes # (Manual) Eosinophils # (Manual) Basophils # (Manual) PT INR APTT ABG pH ABG pO2 ABG HCO3 ABG O2 Saturation ABG Base Excess ABG Hemoglobin Oxyhemoglobin Sodium Potassium Chloride Carbon Dioxide BUN Creatinine Glucose POC Glucose 120 H 140 H Lactic Acid Calcium Ionized Calcium Phosphorus Magnesium Total Bilirubin AST ALT Alkaline Phosphatase Ammonia Total Creatine Kinase CK-MB (CK-2) CK-MB (CK-2) Rel Index Total Protein Albumin Urine WBC (Auto) Vancomycin Trough Salicylates Acetaminophen Plasma/Serum Alcohol Crossmatch 12/26/19 12/26/19 12/26/19 09:47 11:46 17:52 WBC RBC Hgb Hct MCH RDW Plt Count Lymph % (Auto) Brown % (Auto) Brown # Baso # Seg Neutrophils % Seg Neuts % (Manual) Lymphocytes % (Manual) Monocytes % (Manual) Seg Neutrophils # Seg Neutrophils # Man Lymphocytes # (Manual) Monocytes # (Manual) Eosinophils # (Manual) Basophils # (Manual) PT INR APTT ABG pH ABG pO2 ABG HCO3 ABG O2 Saturation ABG Base Excess ABG Hemoglobin Oxyhemoglobin Sodium Potassium Chloride Carbon Dioxide 18 L BUN 65 H Creatinine 1.4 H Glucose 132 H POC Glucose 110 H 145 H Lactic Acid Calcium Ionized Calcium Phosphorus Magnesium Total Bilirubin AST ALT Alkaline Phosphatase Ammonia Total Creatine Kinase CK-MB (CK-2) CK-MB (CK-2) Rel Index Total Protein Albumin Urine WBC (Auto) Vancomycin Trough Salicylates Acetaminophen Plasma/Serum Alcohol Crossmatch 12/27/19 12/27/19 12/27/19 00:01 03:42 03:42 WBC 18.0 H RBC 2.86 L Hgb 8.0 L Hct 25.2 L MCH RDW 19.2 H Plt Count 873 H Lymph % (Auto) 8.4 L Brown % (Auto) 7.5 H Brown # 1.4 H Baso # 0.2 H Seg Neutrophils % 82.2 H Seg Neuts % (Manual) Lymphocytes % (Manual) Monocytes % (Manual) Seg Neutrophils # 14.8 H Seg Neutrophils # Man Lymphocytes # (Manual) Monocytes # (Manual) Eosinophils # (Manual) Basophils # (Manual) PT INR APTT ABG pH ABG pO2 ABG HCO3 ABG O2 Saturation ABG Base Excess ABG Hemoglobin Oxyhemoglobin Sodium Potassium Chloride Carbon Dioxide BUN 73 H Creatinine 1.4 H Glucose 119 H POC Glucose 124 H Lactic Acid Calcium Ionized Calcium Phosphorus Magnesium Total Bilirubin AST ALT Alkaline Phosphatase Ammonia Total Creatine Kinase CK-MB (CK-2) CK-MB (CK-2) Rel Index Total Protein Albumin Urine WBC (Auto) Vancomycin Trough Salicylates Acetaminophen Plasma/Serum Alcohol Crossmatch 12/27/19 12/27/19 12/27/19 05:45 11:45 17:29 WBC RBC Hgb Hct MCH RDW Plt Count Lymph % (Auto) Brown % (Auto) Brown # Baso # Seg Neutrophils % Seg Neuts % (Manual) Lymphocytes % (Manual) Monocytes % (Manual) Seg Neutrophils # Seg Neutrophils # Man Lymphocytes # (Manual) Monocytes # (Manual) Eosinophils # (Manual) Basophils # (Manual) PT INR APTT ABG pH ABG pO2 ABG HCO3 ABG O2 Saturation ABG Base Excess ABG Hemoglobin Oxyhemoglobin Sodium Potassium Chloride Carbon Dioxide BUN Creatinine Glucose POC Glucose 131 H 123 H 134 H Lactic Acid Calcium Ionized Calcium Phosphorus Magnesium Total Bilirubin AST ALT Alkaline Phosphatase Ammonia Total Creatine Kinase CK-MB (CK-2) CK-MB (CK-2) Rel Index Total Protein Albumin Urine WBC (Auto) Vancomycin Trough Salicylates Acetaminophen Plasma/Serum Alcohol Crossmatch 12/28/19 12/28/19 12/28/19 00:12 05:14 11:53 WBC RBC Hgb Hct MCH RDW Plt Count Lymph % (Auto) Brown % (Auto) Brown # Baso # Seg Neutrophils % Seg Neuts % (Manual) Lymphocytes % (Manual) Monocytes % (Manual) Seg Neutrophils # Seg Neutrophils # Man Lymphocytes # (Manual) Monocytes # (Manual) Eosinophils # (Manual) Basophils # (Manual) PT INR APTT ABG pH ABG pO2 ABG HCO3 ABG O2 Saturation ABG Base Excess ABG Hemoglobin Oxyhemoglobin Sodium Potassium Chloride Carbon Dioxide BUN Creatinine Glucose POC Glucose 138 H 130 H 146 H Lactic Acid Calcium Ionized Calcium Phosphorus Magnesium Total Bilirubin AST ALT Alkaline Phosphatase Ammonia Total Creatine Kinase CK-MB (CK-2) CK-MB (CK-2) Rel Index Total Protein Albumin Urine WBC (Auto) Vancomycin Trough Salicylates Acetaminophen Plasma/Serum Alcohol Crossmatch 12/28/19 12/29/19 12/29/19 17:39 00:01 18:11 WBC RBC Hgb Hct MCH RDW Plt Count Lymph % (Auto) Brown % (Auto) Brown # Baso # Seg Neutrophils % Seg Neuts % (Manual) Lymphocytes % (Manual) Monocytes % (Manual) Seg Neutrophils # Seg Neutrophils # Man Lymphocytes # (Manual) Monocytes # (Manual) Eosinophils # (Manual) Basophils # (Manual) PT INR APTT ABG pH ABG pO2 ABG HCO3 ABG O2 Saturation ABG Base Excess ABG Hemoglobin Oxyhemoglobin Sodium Potassium Chloride Carbon Dioxide BUN Creatinine Glucose POC Glucose 117 H 139 H 130 H Lactic Acid Calcium Ionized Calcium Phosphorus Magnesium Total Bilirubin AST ALT Alkaline Phosphatase Ammonia Total Creatine Kinase CK-MB (CK-2) CK-MB (CK-2) Rel Index Total Protein Albumin Urine WBC (Auto) Vancomycin Trough Salicylates Acetaminophen Plasma/Serum Alcohol Crossmatch 12/29/19 12/30/19 12/30/19 23:09 00:02 01:06 WBC 16.7 H RBC 2.91 L Hgb 8.2 L Hct 25.4 L MCH RDW 18.7 H Plt Count 708 H Lymph % (Auto) 9.4 L Brown % (Auto) Brown # 0.9 H Baso # Seg Neutrophils % 83.5 H Seg Neuts % (Manual) Lymphocytes % (Manual) Monocytes % (Manual) Seg Neutrophils # 14.0 H Seg Neutrophils # Man Lymphocytes # (Manual) Monocytes # (Manual) Eosinophils # (Manual) Basophils # (Manual) PT INR APTT ABG pH ABG pO2 ABG HCO3 ABG O2 Saturation ABG Base Excess ABG Hemoglobin Oxyhemoglobin Sodium Potassium Chloride Carbon Dioxide BUN Creatinine Glucose POC Glucose 120 H 114 H Lactic Acid Calcium Ionized Calcium Phosphorus Magnesium Total Bilirubin AST ALT Alkaline Phosphatase Ammonia Total Creatine Kinase CK-MB (CK-2) CK-MB (CK-2) Rel Index Total Protein Albumin Urine WBC (Auto) Vancomycin Trough Salicylates Acetaminophen Plasma/Serum Alcohol Crossmatch 12/30/19 12/30/19 12/30/19 01:06 04:23 05:18 WBC RBC Hgb Hct MCH RDW Plt Count Lymph % (Auto) Brown % (Auto) Brown # Baso # Seg Neutrophils % Seg Neuts % (Manual) Lymphocytes % (Manual) Monocytes % (Manual) Seg Neutrophils # Seg Neutrophils # Man Lymphocytes # (Manual) Monocytes # (Manual) Eosinophils # (Manual) Basophils # (Manual) PT INR APTT ABG pH ABG pO2 ABG HCO3 ABG O2 Saturation ABG Base Excess ABG Hemoglobin 8.3 L Oxyhemoglobin Sodium Potassium Chloride Carbon Dioxide BUN 70 H Creatinine Glucose 122 H POC Glucose 130 H Lactic Acid Calcium Ionized Calcium Phosphorus Magnesium Total Bilirubin AST ALT Alkaline Phosphatase Ammonia Total Creatine Kinase CK-MB (CK-2) CK-MB (CK-2) Rel Index Total Protein Albumin Urine WBC (Auto) Vancomycin Trough Salicylates Acetaminophen Plasma/Serum Alcohol Crossmatch 12/30/19 12/30/19 12/30/19 05:40 12:17 17:43 WBC RBC Hgb Hct MCH RDW Plt Count Lymph % (Auto) Brown % (Auto) Brown # Baso # Seg Neutrophils % Seg Neuts % (Manual) Lymphocytes % (Manual) Monocytes % (Manual) Seg Neutrophils # Seg Neutrophils # Man Lymphocytes # (Manual) Monocytes # (Manual) Eosinophils # (Manual) Basophils # (Manual) PT INR APTT ABG pH ABG pO2 ABG HCO3 ABG O2 Saturation ABG Base Excess ABG Hemoglobin Oxyhemoglobin Sodium Potassium Chloride Carbon Dioxide BUN Creatinine Glucose POC Glucose 135 H 132 H 118 H Lactic Acid Calcium Ionized Calcium Phosphorus Magnesium Total Bilirubin AST ALT Alkaline Phosphatase Ammonia Total Creatine Kinase CK-MB (CK-2) CK-MB (CK-2) Rel Index Total Protein Albumin Urine WBC (Auto) Vancomycin Trough Salicylates Acetaminophen Plasma/Serum Alcohol Crossmatch 12/30/19 12/31/19 12/31/19 23:29 05:19 17:50 WBC RBC Hgb Hct MCH RDW Plt Count Lymph % (Auto) Brown % (Auto) Brown # Baso # Seg Neutrophils % Seg Neuts % (Manual) Lymphocytes % (Manual) Monocytes % (Manual) Seg Neutrophils # Seg Neutrophils # Man Lymphocytes # (Manual) Monocytes # (Manual) Eosinophils # (Manual) Basophils # (Manual) PT INR APTT ABG pH ABG pO2 ABG HCO3 ABG O2 Saturation ABG Base Excess ABG Hemoglobin Oxyhemoglobin Sodium Potassium Chloride Carbon Dioxide BUN Creatinine Glucose POC Glucose 114 H 109 H 116 H Lactic Acid Calcium Ionized Calcium Phosphorus Magnesium Total Bilirubin AST ALT Alkaline Phosphatase Ammonia Total Creatine Kinase CK-MB (CK-2) CK-MB (CK-2) Rel Index Total Protein Albumin Urine WBC (Auto) Vancomycin Trough Salicylates Acetaminophen Plasma/Serum Alcohol Crossmatch 01/01/20 01/01/20 01/01/20 00:10 05:19 12:02 WBC RBC Hgb Hct MCH RDW Plt Count Lymph % (Auto) Brown % (Auto) Brown # Baso # Seg Neutrophils % Seg Neuts % (Manual) Lymphocytes % (Manual) Monocytes % (Manual) Seg Neutrophils # Seg Neutrophils # Man Lymphocytes # (Manual) Monocytes # (Manual) Eosinophils # (Manual) Basophils # (Manual) PT INR APTT ABG pH ABG pO2 ABG HCO3 ABG O2 Saturation ABG Base Excess ABG Hemoglobin Oxyhemoglobin Sodium Potassium Chloride Carbon Dioxide BUN Creatinine Glucose POC Glucose 131 H 122 H 136 H Lactic Acid Calcium Ionized Calcium Phosphorus Magnesium Total Bilirubin AST ALT Alkaline Phosphatase Ammonia Total Creatine Kinase CK-MB (CK-2) CK-MB (CK-2) Rel Index Total Protein Albumin Urine WBC (Auto) Vancomycin Trough Salicylates Acetaminophen Plasma/Serum Alcohol Crossmatch 01/02/20 01/02/20 01/02/20 00:24 05:36 11:41 WBC RBC Hgb Hct MCH RDW Plt Count Lymph % (Auto) Brown % (Auto) Brown # Baso # Seg Neutrophils % Seg Neuts % (Manual) Lymphocytes % (Manual) Monocytes % (Manual) Seg Neutrophils # Seg Neutrophils # Man Lymphocytes # (Manual) Monocytes # (Manual) Eosinophils # (Manual) Basophils # (Manual) PT INR APTT ABG pH ABG pO2 ABG HCO3 ABG O2 Saturation ABG Base Excess ABG Hemoglobin Oxyhemoglobin Sodium Potassium Chloride Carbon Dioxide BUN Creatinine Glucose POC Glucose 119 H 109 H 125 H Lactic Acid Calcium Ionized Calcium Phosphorus Magnesium Total Bilirubin AST ALT Alkaline Phosphatase Ammonia Total Creatine Kinase CK-MB (CK-2) CK-MB (CK-2) Rel Index Total Protein Albumin Urine WBC (Auto) Vancomycin Trough Salicylates Acetaminophen Plasma/Serum Alcohol Crossmatch 01/02/20 01/03/20 01/03/20 17:49 05:29 12:13 WBC RBC Hgb Hct MCH RDW Plt Count Lymph % (Auto) Brown % (Auto) Brown # Baso # Seg Neutrophils % Seg Neuts % (Manual) Lymphocytes % (Manual) Monocytes % (Manual) Seg Neutrophils # Seg Neutrophils # Man Lymphocytes # (Manual) Monocytes # (Manual) Eosinophils # (Manual) Basophils # (Manual) PT INR APTT ABG pH ABG pO2 ABG HCO3 ABG O2 Saturation ABG Base Excess ABG Hemoglobin Oxyhemoglobin Sodium Potassium Chloride Carbon Dioxide BUN Creatinine Glucose POC Glucose 130 H 132 H 113 H Lactic Acid Calcium Ionized Calcium Phosphorus Magnesium Total Bilirubin AST ALT Alkaline Phosphatase Ammonia Total Creatine Kinase CK-MB (CK-2) CK-MB (CK-2) Rel Index Total Protein Albumin Urine WBC (Auto) Vancomycin Trough Salicylates Acetaminophen Plasma/Serum Alcohol Crossmatch 01/03/20 01/04/20 01/04/20 17:32 00:19 05:26 WBC RBC Hgb Hct MCH RDW Plt Count Lymph % (Auto) Brown % (Auto) Brown # Baso # Seg Neutrophils % Seg Neuts % (Manual) Lymphocytes % (Manual) Monocytes % (Manual) Seg Neutrophils # Seg Neutrophils # Man Lymphocytes # (Manual) Monocytes # (Manual) Eosinophils # (Manual) Basophils # (Manual) PT INR APTT ABG pH ABG pO2 ABG HCO3 ABG O2 Saturation ABG Base Excess ABG Hemoglobin Oxyhemoglobin Sodium Potassium Chloride Carbon Dioxide BUN Creatinine Glucose POC Glucose 127 H 141 H 129 H Lactic Acid Calcium Ionized Calcium Phosphorus Magnesium Total Bilirubin AST ALT Alkaline Phosphatase Ammonia Total Creatine Kinase CK-MB (CK-2) CK-MB (CK-2) Rel Index Total Protein Albumin Urine WBC (Auto) Vancomycin Trough Salicylates Acetaminophen Plasma/Serum Alcohol Crossmatch 01/04/20 01/04/20 01/05/20 11:39 17:29 05:22 WBC RBC Hgb Hct MCH RDW Plt Count Lymph % (Auto) Brown % (Auto) Brown # Baso # Seg Neutrophils % Seg Neuts % (Manual) Lymphocytes % (Manual) Monocytes % (Manual) Seg Neutrophils # Seg Neutrophils # Man Lymphocytes # (Manual) Monocytes # (Manual) Eosinophils # (Manual) Basophils # (Manual) PT INR APTT ABG pH ABG pO2 ABG HCO3 ABG O2 Saturation ABG Base Excess ABG Hemoglobin Oxyhemoglobin Sodium Potassium Chloride Carbon Dioxide BUN Creatinine Glucose POC Glucose 167 H 132 H 121 H Lactic Acid Calcium Ionized Calcium Phosphorus Magnesium Total Bilirubin AST ALT Alkaline Phosphatase Ammonia Total Creatine Kinase CK-MB (CK-2) CK-MB (CK-2) Rel Index Total Protein Albumin Urine WBC (Auto) Vancomycin Trough Salicylates Acetaminophen Plasma/Serum Alcohol Crossmatch 01/05/20 01/05/20 01/05/20 12:25 17:40 18:06 WBC RBC Hgb Hct MCH RDW Plt Count Lymph % (Auto) Brown % (Auto) Brown # Baso # Seg Neutrophils % Seg Neuts % (Manual) Lymphocytes % (Manual) Monocytes % (Manual) Seg Neutrophils # Seg Neutrophils # Man Lymphocytes # (Manual) Monocytes # (Manual) Eosinophils # (Manual) Basophils # (Manual) PT INR APTT ABG pH 7.472 H ABG pO2 99.2 H ABG HCO3 ABG O2 Saturation ABG Base Excess ABG Hemoglobin 7.8 L Oxyhemoglobin Sodium Potassium Chloride Carbon Dioxide BUN Creatinine Glucose POC Glucose 106 H 110 H Lactic Acid Calcium Ionized Calcium Phosphorus Magnesium Total Bilirubin AST ALT Alkaline Phosphatase Ammonia Total Creatine Kinase CK-MB (CK-2) CK-MB (CK-2) Rel Index Total Protein Albumin Urine WBC (Auto) Vancomycin Trough Salicylates Acetaminophen Plasma/Serum Alcohol Crossmatch 01/06/20 01/06/20 01/06/20 00:11 05:16 11:30 WBC RBC Hgb Hct MCH RDW Plt Count Lymph % (Auto) Brown % (Auto) Brown # Baso # Seg Neutrophils % Seg Neuts % (Manual) Lymphocytes % (Manual) Monocytes % (Manual) Seg Neutrophils # Seg Neutrophils # Man Lymphocytes # (Manual) Monocytes # (Manual) Eosinophils # (Manual) Basophils # (Manual) PT INR APTT ABG pH ABG pO2 ABG HCO3 ABG O2 Saturation ABG Base Excess ABG Hemoglobin Oxyhemoglobin Sodium Potassium Chloride Carbon Dioxide BUN Creatinine Glucose POC Glucose 108 H 124 H 125 H Lactic Acid Calcium Ionized Calcium Phosphorus Magnesium Total Bilirubin AST ALT Alkaline Phosphatase Ammonia Total Creatine Kinase CK-MB (CK-2) CK-MB (CK-2) Rel Index Total Protein Albumin Urine WBC (Auto) Vancomycin Trough Salicylates Acetaminophen Plasma/Serum Alcohol Crossmatch 01/06/20 01/06/20 01/07/20 17:53 23:51 04:12 WBC 16.5 H RBC 3.29 L Hgb 9.3 L Hct 28.1 L MCH RDW 18.2 H Plt Count 526 H Lymph % (Auto) 8.4 L Brown % (Auto) Brown # 1.0 H Baso # Seg Neutrophils % 84.4 H Seg Neuts % (Manual) Lymphocytes % (Manual) Monocytes % (Manual) Seg Neutrophils # 13.9 H Seg Neutrophils # Man Lymphocytes # (Manual) Monocytes # (Manual) Eosinophils # (Manual) Basophils # (Manual) PT INR APTT ABG pH ABG pO2 ABG HCO3 ABG O2 Saturation ABG Base Excess ABG Hemoglobin Oxyhemoglobin Sodium Potassium Chloride Carbon Dioxide BUN Creatinine Glucose POC Glucose 166 H 128 H Lactic Acid Calcium Ionized Calcium Phosphorus Magnesium Total Bilirubin AST ALT Alkaline Phosphatase Ammonia Total Creatine Kinase CK-MB (CK-2) CK-MB (CK-2) Rel Index Total Protein Albumin Urine WBC (Auto) Vancomycin Trough Salicylates Acetaminophen Plasma/Serum Alcohol Crossmatch 01/07/20 01/07/20 01/07/20 04:12 04:45 11:51 WBC RBC Hgb Hct MCH RDW Plt Count Lymph % (Auto) Brown % (Auto) Brown # Baso # Seg Neutrophils % Seg Neuts % (Manual) Lymphocytes % (Manual) Monocytes % (Manual) Seg Neutrophils # Seg Neutrophils # Man Lymphocytes # (Manual) Monocytes # (Manual) Eosinophils # (Manual) Basophils # (Manual) PT INR APTT ABG pH ABG pO2 ABG HCO3 ABG O2 Saturation ABG Base Excess ABG Hemoglobin Oxyhemoglobin Sodium 136 L Potassium Chloride Carbon Dioxide 21 L BUN 44 H Creatinine 0.6 L Glucose 124 H POC Glucose 134 H 138 H Lactic Acid Calcium Ionized Calcium Phosphorus Magnesium Total Bilirubin AST ALT Alkaline Phosphatase Ammonia Total Creatine Kinase CK-MB (CK-2) CK-MB (CK-2) Rel Index Total Protein Albumin Urine WBC (Auto) Vancomycin Trough Salicylates Acetaminophen Plasma/Serum Alcohol Crossmatch 01/07/20 01/08/20 01/08/20 17:36 00:33 05:29 WBC RBC Hgb Hct MCH RDW Plt Count Lymph % (Auto) Brown % (Auto) Brown # Baso # Seg Neutrophils % Seg Neuts % (Manual) Lymphocytes % (Manual) Monocytes % (Manual) Seg Neutrophils # Seg Neutrophils # Man Lymphocytes # (Manual) Monocytes # (Manual) Eosinophils # (Manual) Basophils # (Manual) PT INR APTT ABG pH ABG pO2 ABG HCO3 ABG O2 Saturation ABG Base Excess ABG Hemoglobin Oxyhemoglobin Sodium Potassium Chloride Carbon Dioxide BUN Creatinine Glucose POC Glucose 128 H 119 H 124 H Lactic Acid Calcium Ionized Calcium Phosphorus Magnesium Total Bilirubin AST ALT Alkaline Phosphatase Ammonia Total Creatine Kinase CK-MB (CK-2) CK-MB (CK-2) Rel Index Total Protein Albumin Urine WBC (Auto) Vancomycin Trough Salicylates Acetaminophen Plasma/Serum Alcohol Crossmatch 01/08/20 01/08/20 01/08/20 12:51 20:25 23:22 WBC RBC Hgb Hct MCH RDW Plt Count Lymph % (Auto) Brown % (Auto) Brown # Baso # Seg Neutrophils % Seg Neuts % (Manual) Lymphocytes % (Manual) Monocytes % (Manual) Seg Neutrophils # Seg Neutrophils # Man Lymphocytes # (Manual) Monocytes # (Manual) Eosinophils # (Manual) Basophils # (Manual) PT INR APTT ABG pH ABG pO2 132.2 H ABG HCO3 ABG O2 Saturation ABG Base Excess ABG Hemoglobin Oxyhemoglobin Sodium Potassium Chloride Carbon Dioxide BUN Creatinine Glucose POC Glucose 128 H 127 H Lactic Acid Calcium Ionized Calcium Phosphorus Magnesium Total Bilirubin AST ALT Alkaline Phosphatase Ammonia Total Creatine Kinase CK-MB (CK-2) CK-MB (CK-2) Rel Index Total Protein Albumin Urine WBC (Auto) Vancomycin Trough Salicylates Acetaminophen Plasma/Serum Alcohol Crossmatch 01/09/20 01/09/20 01/09/20 05:48 08:51 11:29 WBC RBC Hgb Hct MCH RDW Plt Count Lymph % (Auto) Brown % (Auto) Brown # Baso # Seg Neutrophils % Seg Neuts % (Manual) Lymphocytes % (Manual) Monocytes % (Manual) Seg Neutrophils # Seg Neutrophils # Man Lymphocytes # (Manual) Monocytes # (Manual) Eosinophils # (Manual) Basophils # (Manual) PT INR APTT ABG pH ABG pO2 94.3 H ABG HCO3 ABG O2 Saturation ABG Base Excess ABG Hemoglobin 9.5 L Oxyhemoglobin Sodium Potassium Chloride Carbon Dioxide BUN Creatinine Glucose POC Glucose 120 H 112 H Lactic Acid Calcium Ionized Calcium Phosphorus Magnesium Total Bilirubin AST ALT Alkaline Phosphatase Ammonia Total Creatine Kinase CK-MB (CK-2) CK-MB (CK-2) Rel Index Total Protein Albumin Urine WBC (Auto) Vancomycin Trough Salicylates Acetaminophen Plasma/Serum Alcohol Crossmatch 01/09/20 01/10/20 01/10/20 17:57 05:17 12:28 WBC RBC Hgb Hct MCH RDW Plt Count Lymph % (Auto) Brown % (Auto) Brown # Baso # Seg Neutrophils % Seg Neuts % (Manual) Lymphocytes % (Manual) Monocytes % (Manual) Seg Neutrophils # Seg Neutrophils # Man Lymphocytes # (Manual) Monocytes # (Manual) Eosinophils # (Manual) Basophils # (Manual) PT INR APTT ABG pH ABG pO2 ABG HCO3 ABG O2 Saturation ABG Base Excess ABG Hemoglobin Oxyhemoglobin Sodium Potassium Chloride Carbon Dioxide BUN Creatinine Glucose POC Glucose 122 H 115 H 116 H Lactic Acid Calcium Ionized Calcium Phosphorus Magnesium Total Bilirubin AST ALT Alkaline Phosphatase Ammonia Total Creatine Kinase CK-MB (CK-2) CK-MB (CK-2) Rel Index Total Protein Albumin Urine WBC (Auto) Vancomycin Trough Salicylates Acetaminophen Plasma/Serum Alcohol Crossmatch 01/10/20 01/10/20 01/11/20 18:25 23:47 06:05 WBC RBC Hgb Hct MCH RDW Plt Count Lymph % (Auto) Brown % (Auto) Brown # Baso # Seg Neutrophils % Seg Neuts % (Manual) Lymphocytes % (Manual) Monocytes % (Manual) Seg Neutrophils # Seg Neutrophils # Man Lymphocytes # (Manual) Monocytes # (Manual) Eosinophils # (Manual) Basophils # (Manual) PT INR APTT ABG pH ABG pO2 ABG HCO3 ABG O2 Saturation ABG Base Excess ABG Hemoglobin Oxyhemoglobin Sodium Potassium Chloride Carbon Dioxide BUN Creatinine Glucose POC Glucose 123 H 115 H 151 H Lactic Acid Calcium Ionized Calcium Phosphorus Magnesium Total Bilirubin AST ALT Alkaline Phosphatase Ammonia Total Creatine Kinase CK-MB (CK-2) CK-MB (CK-2) Rel Index Total Protein Albumin Urine WBC (Auto) Vancomycin Trough Salicylates Acetaminophen Plasma/Serum Alcohol Crossmatch 01/11/20 01/11/20 01/11/20 07:00 07:00 12:27 WBC 11.8 H RBC 3.40 L Hgb 9.4 L Hct 29.3 L MCH RDW 18.1 H Plt Count 549 H Lymph % (Auto) Brown % (Auto) 9.1 H Brown # 1.1 H Baso # Seg Neutrophils % 73.3 H Seg Neuts % (Manual) Lymphocytes % (Manual) Monocytes % (Manual) Seg Neutrophils # 8.7 H Seg Neutrophils # Man Lymphocytes # (Manual) Monocytes # (Manual) Eosinophils # (Manual) Basophils # (Manual) PT INR APTT ABG pH ABG pO2 ABG HCO3 ABG O2 Saturation ABG Base Excess ABG Hemoglobin Oxyhemoglobin Sodium 134 L Potassium Chloride 97.7 L Carbon Dioxide 21 L BUN 38 H Creatinine 0.5 L Glucose 168 H POC Glucose 117 H Lactic Acid Calcium 10.5 H Ionized Calcium Phosphorus Magnesium Total Bilirubin AST ALT Alkaline Phosphatase Ammonia Total Creatine Kinase CK-MB (CK-2) CK-MB (CK-2) Rel Index Total Protein Albumin Urine WBC (Auto) Vancomycin Trough Salicylates Acetaminophen Plasma/Serum Alcohol Crossmatch 01/11/20 01/12/20 01/12/20 18:19 00:53 05:24 WBC RBC Hgb Hct MCH RDW Plt Count Lymph % (Auto) Brown % (Auto) Brown # Baso # Seg Neutrophils % Seg Neuts % (Manual) Lymphocytes % (Manual) Monocytes % (Manual) Seg Neutrophils # Seg Neutrophils # Man Lymphocytes # (Manual) Monocytes # (Manual) Eosinophils # (Manual) Basophils # (Manual) PT INR APTT ABG pH ABG pO2 ABG HCO3 ABG O2 Saturation ABG Base Excess ABG Hemoglobin Oxyhemoglobin Sodium Potassium Chloride Carbon Dioxide BUN Creatinine Glucose POC Glucose 126 H 126 H 128 H Lactic Acid Calcium Ionized Calcium Phosphorus Magnesium Total Bilirubin AST ALT Alkaline Phosphatase Ammonia Total Creatine Kinase CK-MB (CK-2) CK-MB (CK-2) Rel Index Total Protein Albumin Urine WBC (Auto) Vancomycin Trough Salicylates Acetaminophen Plasma/Serum Alcohol Crossmatch 01/12/20 01/12/20 01/13/20 13:39 18:02 00:27 WBC RBC Hgb Hct MCH RDW Plt Count Lymph % (Auto) Brown % (Auto) Brown # Baso # Seg Neutrophils % Seg Neuts % (Manual) Lymphocytes % (Manual) Monocytes % (Manual) Seg Neutrophils # Seg Neutrophils # Man Lymphocytes # (Manual) Monocytes # (Manual) Eosinophils # (Manual) Basophils # (Manual) PT INR APTT ABG pH ABG pO2 ABG HCO3 ABG O2 Saturation ABG Base Excess ABG Hemoglobin Oxyhemoglobin Sodium Potassium Chloride Carbon Dioxide BUN Creatinine Glucose POC Glucose 146 H 125 H 131 H Lactic Acid Calcium Ionized Calcium Phosphorus Magnesium Total Bilirubin AST ALT Alkaline Phosphatase Ammonia Total Creatine Kinase CK-MB (CK-2) CK-MB (CK-2) Rel Index Total Protein Albumin Urine WBC (Auto) Vancomycin Trough Salicylates Acetaminophen Plasma/Serum Alcohol Crossmatch 01/13/20 01/13/20 01/13/20 05:44 11:54 17:18 WBC RBC Hgb Hct MCH RDW Plt Count Lymph % (Auto) Brown % (Auto) Brown # Baso # Seg Neutrophils % Seg Neuts % (Manual) Lymphocytes % (Manual) Monocytes % (Manual) Seg Neutrophils # Seg Neutrophils # Man Lymphocytes # (Manual) Monocytes # (Manual) Eosinophils # (Manual) Basophils # (Manual) PT INR APTT ABG pH ABG pO2 ABG HCO3 ABG O2 Saturation ABG Base Excess ABG Hemoglobin Oxyhemoglobin Sodium Potassium Chloride Carbon Dioxide BUN Creatinine Glucose POC Glucose 148 H 140 H 130 H Lactic Acid Calcium Ionized Calcium Phosphorus Magnesium Total Bilirubin AST ALT Alkaline Phosphatase Ammonia Total Creatine Kinase CK-MB (CK-2) CK-MB (CK-2) Rel Index Total Protein Albumin Urine WBC (Auto) Vancomycin Trough Salicylates Acetaminophen Plasma/Serum Alcohol Crossmatch 01/14/20 01/14/20 01/14/20 00:16 05:45 12:19 WBC RBC Hgb Hct MCH RDW Plt Count Lymph % (Auto) Brown % (Auto) Brown # Baso # Seg Neutrophils % Seg Neuts % (Manual) Lymphocytes % (Manual) Monocytes % (Manual) Seg Neutrophils # Seg Neutrophils # Man Lymphocytes # (Manual) Monocytes # (Manual) Eosinophils # (Manual) Basophils # (Manual) PT INR APTT ABG pH ABG pO2 ABG HCO3 ABG O2 Saturation ABG Base Excess ABG Hemoglobin Oxyhemoglobin Sodium Potassium Chloride Carbon Dioxide BUN Creatinine Glucose POC Glucose 125 H 146 H 147 H Lactic Acid Calcium Ionized Calcium Phosphorus Magnesium Total Bilirubin AST ALT Alkaline Phosphatase Ammonia Total Creatine Kinase CK-MB (CK-2) CK-MB (CK-2) Rel Index Total Protein Albumin Urine WBC (Auto) Vancomycin Trough Salicylates Acetaminophen Plasma/Serum Alcohol Crossmatch 01/14/20 01/14/20 01/15/20 18:10 23:54 05:14 WBC RBC Hgb Hct MCH RDW Plt Count Lymph % (Auto) Brown % (Auto) Brown # Baso # Seg Neutrophils % Seg Neuts % (Manual) Lymphocytes % (Manual) Monocytes % (Manual) Seg Neutrophils # Seg Neutrophils # Man Lymphocytes # (Manual) Monocytes # (Manual) Eosinophils # (Manual) Basophils # (Manual) PT INR APTT ABG pH ABG pO2 ABG HCO3 ABG O2 Saturation ABG Base Excess ABG Hemoglobin Oxyhemoglobin Sodium Potassium Chloride Carbon Dioxide BUN Creatinine Glucose POC Glucose 136 H 109 H 111 H Lactic Acid Calcium Ionized Calcium Phosphorus Magnesium Total Bilirubin AST ALT Alkaline Phosphatase Ammonia Total Creatine Kinase CK-MB (CK-2) CK-MB (CK-2) Rel Index Total Protein Albumin Urine WBC (Auto) Vancomycin Trough Salicylates Acetaminophen Plasma/Serum Alcohol Crossmatch 01/15/20 01/15/20 01/16/20 12:34 23:25 05:06 WBC RBC Hgb Hct MCH RDW Plt Count Lymph % (Auto) Brown % (Auto) Brown # Baso # Seg Neutrophils % Seg Neuts % (Manual) Lymphocytes % (Manual) Monocytes % (Manual) Seg Neutrophils # Seg Neutrophils # Man Lymphocytes # (Manual) Monocytes # (Manual) Eosinophils # (Manual) Basophils # (Manual) PT INR APTT ABG pH ABG pO2 ABG HCO3 ABG O2 Saturation ABG Base Excess ABG Hemoglobin Oxyhemoglobin Sodium Potassium Chloride Carbon Dioxide BUN Creatinine Glucose POC Glucose 131 H 120 H 121 H Lactic Acid Calcium Ionized Calcium Phosphorus Magnesium Total Bilirubin AST ALT Alkaline Phosphatase Ammonia Total Creatine Kinase CK-MB (CK-2) CK-MB (CK-2) Rel Index Total Protein Albumin Urine WBC (Auto) Vancomycin Trough Salicylates Acetaminophen Plasma/Serum Alcohol Crossmatch 01/16/20 01/17/20 01/17/20 23:46 05:32 06:47 WBC 13.6 H RBC 3.27 L Hgb 9.3 L Hct 28.5 L MCH RDW 17.0 H Plt Count 490 H Lymph % (Auto) 13.1 L Brown % (Auto) Brown # 1.0 H Baso # Seg Neutrophils % 77.5 H Seg Neuts % (Manual) Lymphocytes % (Manual) Monocytes % (Manual) Seg Neutrophils # 10.5 H Seg Neutrophils # Man Lymphocytes # (Manual) Monocytes # (Manual) Eosinophils # (Manual) Basophils # (Manual) PT INR APTT ABG pH ABG pO2 ABG HCO3 ABG O2 Saturation ABG Base Excess ABG Hemoglobin Oxyhemoglobin Sodium Potassium Chloride Carbon Dioxide BUN Creatinine Glucose POC Glucose 107 H 112 H Lactic Acid Calcium Ionized Calcium Phosphorus Magnesium Total Bilirubin AST ALT Alkaline Phosphatase Ammonia Total Creatine Kinase CK-MB (CK-2) CK-MB (CK-2) Rel Index Total Protein Albumin Urine WBC (Auto) Vancomycin Trough Salicylates Acetaminophen Plasma/Serum Alcohol Crossmatch 01/17/20 01/17/20 01/17/20 12:16 17:21 23:34 WBC RBC Hgb Hct MCH RDW Plt Count Lymph % (Auto) Brown % (Auto) Brown # Baso # Seg Neutrophils % Seg Neuts % (Manual) Lymphocytes % (Manual) Monocytes % (Manual) Seg Neutrophils # Seg Neutrophils # Man Lymphocytes # (Manual) Monocytes # (Manual) Eosinophils # (Manual) Basophils # (Manual) PT INR APTT ABG pH ABG pO2 ABG HCO3 ABG O2 Saturation ABG Base Excess ABG Hemoglobin Oxyhemoglobin Sodium Potassium Chloride Carbon Dioxide BUN Creatinine Glucose POC Glucose 145 H 150 H 160 H Lactic Acid Calcium Ionized Calcium Phosphorus Magnesium Total Bilirubin AST ALT Alkaline Phosphatase Ammonia Total Creatine Kinase CK-MB (CK-2) CK-MB (CK-2) Rel Index Total Protein Albumin Urine WBC (Auto) Vancomycin Trough Salicylates Acetaminophen Plasma/Serum Alcohol Crossmatch 01/18/20 01/18/20 01/18/20 05:47 12:43 18:26 WBC RBC Hgb Hct MCH RDW Plt Count Lymph % (Auto) Brown % (Auto) Brown # Baso # Seg Neutrophils % Seg Neuts % (Manual) Lymphocytes % (Manual) Monocytes % (Manual) Seg Neutrophils # Seg Neutrophils # Man Lymphocytes # (Manual) Monocytes # (Manual) Eosinophils # (Manual) Basophils # (Manual) PT INR APTT ABG pH ABG pO2 ABG HCO3 ABG O2 Saturation ABG Base Excess ABG Hemoglobin Oxyhemoglobin Sodium Potassium Chloride Carbon Dioxide BUN Creatinine Glucose POC Glucose 130 H 124 H 119 H Lactic Acid Calcium Ionized Calcium Phosphorus Magnesium Total Bilirubin AST ALT Alkaline Phosphatase Ammonia Total Creatine Kinase CK-MB (CK-2) CK-MB (CK-2) Rel Index Total Protein Albumin Urine WBC (Auto) Vancomycin Trough Salicylates Acetaminophen Plasma/Serum Alcohol Crossmatch 01/19/20 01/19/20 01/19/20 00:14 06:24 12:24 WBC RBC Hgb Hct MCH RDW Plt Count Lymph % (Auto) Brown % (Auto) Brown # Baso # Seg Neutrophils % Seg Neuts % (Manual) Lymphocytes % (Manual) Monocytes % (Manual) Seg Neutrophils # Seg Neutrophils # Man Lymphocytes # (Manual) Monocytes # (Manual) Eosinophils # (Manual) Basophils # (Manual) PT INR APTT ABG pH ABG pO2 ABG HCO3 ABG O2 Saturation ABG Base Excess ABG Hemoglobin Oxyhemoglobin Sodium Potassium Chloride Carbon Dioxide BUN Creatinine Glucose POC Glucose 114 H 144 H 132 H Lactic Acid Calcium Ionized Calcium Phosphorus Magnesium Total Bilirubin AST ALT Alkaline Phosphatase Ammonia Total Creatine Kinase CK-MB (CK-2) CK-MB (CK-2) Rel Index Total Protein Albumin Urine WBC (Auto) Vancomycin Trough Salicylates Acetaminophen Plasma/Serum Alcohol Crossmatch 01/19/20 01/20/20 17:50 12:06 WBC RBC Hgb Hct MCH RDW Plt Count Lymph % (Auto) Brown % (Auto) Brown # Baso # Seg Neutrophils % Seg Neuts % (Manual) Lymphocytes % (Manual) Monocytes % (Manual) Seg Neutrophils # Seg Neutrophils # Man Lymphocytes # (Manual) Monocytes # (Manual) Eosinophils # (Manual) Basophils # (Manual) PT INR APTT ABG pH ABG pO2 ABG HCO3 ABG O2 Saturation ABG Base Excess ABG Hemoglobin Oxyhemoglobin Sodium Potassium Chloride Carbon Dioxide BUN Creatinine Glucose POC Glucose 144 H 135 H Lactic Acid Calcium Ionized Calcium Phosphorus Magnesium Total Bilirubin AST ALT Alkaline Phosphatase Ammonia Total Creatine Kinase CK-MB (CK-2) CK-MB (CK-2) Rel Index Total Protein Albumin Urine WBC (Auto) Vancomycin Trough Salicylates Acetaminophen Plasma/Serum Alcohol Crossmatch Allied health notes reviewed: nursing
[2020-01-20] MEDS: ACETYLCYSTEINE 20% 200 MG/1 ML *FOR INHALATION USE INHALATION SCH (17:29)
[2020-01-20] MEDS: QUEtiapine 100 MG TAB FEEDTUBE SCH (21:46)
[2020-01-21] MEDS: ACETYLCYSTEINE 20% 200 MG/1 ML *FOR INHALATION USE INHALATION SCH ×3 (06:02→18:39)
[2020-01-21] MEDS: SERTRALINE 50 MG TAB PO SCH (09:44)
[2020-01-21] MEDS: levETIRAcetam 500 MG/5 ML ORAL LIQD PO SCH ×2 (09:44→21:52)
[2020-01-21] MEDS: MIRTAZAPINE 30 MG TAB PO SCH (09:44)
[2020-01-21] MEDS: hydrOXYzine PAMOATE 25 MG CAP PO SCH ×2 (09:45→21:51)
[2020-01-21] MEDS: LANSOPRAZOLE 30 MG SOLUTAB FEEDTUBE SCH (09:45)
[2020-01-21] MEDS: GLYCOPYRROLATE 1 MG TAB PO SCH ×3 (09:45→21:51)
[2020-01-21] MEDS: TAMSULOSIN 0.4 MG CAP PO SCH (09:45)
--- NOTE | 2020-01-21 10:06 | Progress Note ---
Assessment and Plan Acute cardiopulmonary arrest with ROSC Acute hypoxemic respiratory failure on MVS MRSA Bacteremia MRSA pneumonia Acute [id number]-mbnou-rlozru encephalopathy Metabolic acidosis/alcoholic acidosis/Lactic acidosis( resolved) Ischemic hepatitis Leucocytosis - persistent Erythrocytosis Tobacco use disorder Alcohol use Disorder -CBC, BMP prn -Trach care, airway clearance, secretion management( continue scopolamine patch and Robinul) -CXR, ABG prn -Weaning trials as tolerated- ATP then PMV and posible capping as tolerated by secretions -Continue contact isolation for MRSA -Trend leukocytosis, and temperature curve -Continue all care as documented below. -PT/OT, increase activity -OK to transfer to telemetry floor for ongoing tracheostomy weaning trials -Continue aspiration precautions, HOB>40 -Continue Stress ulcer prophylaxis -Continue enteric nutritional support at goal rate. -Continue to monitor glycemic control, with target blood glucose 140-180 mg/dL while critically ill. -Avoid hypoglycemia - Continue to wean supplemental oxygen for target O2 sat's > 90% -Continue thiamine, multivitamin and electrolyte replacement -Continue to avoid nephrotoxins, adjust all medications for GFR and CrCL - Continue bronchodilators with pulmonary hygiene - Continue prn analgesia per CPOT score - Continue to maintain of sleep-wake cycle, avoid delirium - Continue mobility protocol and skin assessment per protocol for pressure ulcer prevention - Continue to monitor for clinical seizures - continue other care per attending / other consultants CONDITION: FAIR PROGNOSIS: FAIR CODE STATUS: DNAR Subjective Date of service: 01/21/20 Principal diagnosis: Ac cardiopulmonary arrest; Ac hypoxemic resp failure; Acute encephalopathy Interval history: Patient is seen today for: Acute cardiopulmonary arrest with ROSC; Acute hypoxemic respiratory failure; Acute metabolic-toxic encephalopathy; Ischemic hepatitis; Leucocytosis with lactic acidosis; Tobacco use disorder; Alcohol use Disorder; s/p tracheostomy; s/p PEG Seen and examined at bedside; 24hour events reviewed; nursing and respiratory care staff consulted; no adverse overnight events reported to me; resting peacefully in bed; tolerating ATP trials, participating in therapy No fevers, no vomiting, continues to tolerate tube feedings Awake and alert, responsive Objective Vital Signs - 12hr 01/20/20 01/21/20 01/21/20 23:00 00:00 01:00 Temperature 98.8 F Pulse Rate 112 H 109 H 101 H Respiratory 24 26 H 20 Rate Blood Pressure 95/57 104/66 97/68 O2 Sat by Pulse 99 97 97 Oximetry O2 Sat by Pulse 99 Oximetry [ Assessment] 01/21/20 01/21/20 01/21/20 02:00 03:00 04:00 Temperature 98.4 F Pulse Rate 100 H 102 H 105 H Respiratory 21 25 H 20 Rate Blood Pressure 96/65 113/79 116/76 O2 Sat by Pulse 99 99 99 Oximetry O2 Sat by Pulse Oximetry [ Assessment] 01/21/20 01/21/20 01/21/20 05:00 06:00 07:00 Temperature Pulse Rate 105 H 109 H 106 H Respiratory 18 20 19 Rate Blood Pressure 119/83 128/80 131/82 O2 Sat by Pulse 99 99 92 Oximetry O2 Sat by Pulse Oximetry [ Assessment] 01/21/20 01/21/20 08:00 08:41 Temperature 97.1 F L Pulse Rate 103 H Respiratory 22 Rate Blood Pressure 131/83 O2 Sat by Pulse 94 100 Oximetry O2 Sat by Pulse 100 Oximetry [ Assessment] Constitutional: no acute distress, other (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, with midline tracheostomy to ATP) Eyes: non-icteric ENT: oropharynx moist, other (s/p trach) Neck: supple, no lymphadenopathy, no JVD Effort: normal Ascultation: Bilateral: diminished breath sounds, rhonchi Percussion: Bilateral: not dull Cardiovascular: regular rate and rhythm (tachycardia), other (S1,S2) Gastrointestinal: normoactive bowel sounds, soft, non-tender, non-distended Integumentary: normal Extremities: no cyanosis, no edema, pulses normal, no ischemia or petechiae Neurologic: pupils equal and round, other (awake; folowing simple commands) Psychiatric: affect normal CBC and BMP: 01/17/20 05:32 01/11/20 07:00 ABG, PT/INR, D-dimer: ABG ABG pH 7.429 pH Units (7.350-7.450) 01/09/20 08:51 ABG pCO2 39.1 mm Hg 01/09/20 08:51 ABG pO2 94.3 mm Hg (80.0-90.0) H 01/09/20 08:51 ABG O2 Saturation 97.4 % (95.0-99.0) 01/09/20 08:51 PT/INR, D-dimer PT 17.0 Sec. (12.2-14.9) H 11/23/19 03:47 INR 1.36 (0.87-1.13) H 11/23/19 03:47 Abnormal lab findings: Abnormal Labs 11/22/19 11/22/19 11/22/19 23:17 23:18 23:27 WBC 21.2 H RBC 3.59 L Hgb 9.8 L Hct MCH 27 L RDW 18.6 H Plt Count 454 H Lymph % (Auto) [place] % (Auto) [place] # Baso # Seg Neutrophils % Seg Neuts % (Manual) 86.0 H Lymphocytes % (Manual) 9.0 L Monocytes % (Manual) Seg Neutrophils # Seg Neutrophils # Man 18.2 H Lymphocytes # (Manual) Monocytes # (Manual) 1.1 H Eosinophils # (Manual) Basophils # (Manual) PT INR APTT ABG pH ABG pO2 ABG HCO3 ABG O2 Saturation ABG Base Excess ABG Hemoglobin Oxyhemoglobin Sodium Potassium Chloride Carbon Dioxide BUN Creatinine Glucose POC Glucose 53 L Lactic Acid Calcium Ionized Calcium Phosphorus Magnesium Total Bilirubin AST ALT Alkaline Phosphatase Ammonia Total Creatine Kinase CK-MB (CK-2) CK-MB (CK-2) Rel Index Total Protein Albumin Urine WBC (Auto) 40.0 H Vancomycin Trough Salicylates Acetaminophen Plasma/Serum Alcohol Crossmatch 11/22/19 11/22/19 11/22/19 23:27 23:27 23:27 WBC RBC Hgb Hct MCH RDW Plt Count Lymph % (Auto) [place] % (Auto) [place] # Baso # Seg Neutrophils % Seg Neuts % (Manual) Lymphocytes % (Manual) Monocytes % (Manual) Seg Neutrophils # Seg Neutrophils # Man Lymphocytes # (Manual) Monocytes # (Manual) Eosinophils # (Manual) Basophils # (Manual) PT INR APTT ABG pH ABG pO2 ABG HCO3 ABG O2 Saturation ABG Base Excess ABG Hemoglobin Oxyhemoglobin Sodium Potassium 2.4 L* Chloride 85.1 L Carbon Dioxide 19 L BUN Creatinine 0.5 L Glucose 261 H POC Glucose Lactic Acid Calcium Ionized Calcium Phosphorus Magnesium Total Bilirubin AST 609 H ALT 152 H Alkaline Phosphatase 160 H Ammonia 117.0 H Total Creatine Kinase 139 H CK-MB (CK-2) 8.3 H CK-MB (CK-2) Rel Index 5.9 H Total Protein Albumin 3.6 L Urine WBC (Auto) Vancomycin Trough Salicylates < 0.3 L Acetaminophen Plasma/Serum Alcohol Crossmatch 11/22/19 11/22/19 11/23/19 23:27 23:27 01:10 WBC RBC Hgb Hct MCH RDW Plt Count Lymph % (Auto) [place] % (Auto) [place] # Baso # Seg Neutrophils % Seg Neuts % (Manual) Lymphocytes % (Manual) Monocytes % (Manual) Seg Neutrophils # Seg Neutrophils # Man Lymphocytes # (Manual) Monocytes # (Manual) Eosinophils # (Manual) Basophils # (Manual) PT INR APTT ABG pH 7.273 L ABG pO2 209.7 H ABG HCO3 ABG O2 Saturation 99.2 H ABG Base Excess -3.9 L ABG Hemoglobin 10.6 L Oxyhemoglobin 93.9 L Sodium Potassium Chloride Carbon Dioxide BUN Creatinine Glucose POC Glucose Lactic Acid Calcium Ionized Calcium Phosphorus Magnesium Total Bilirubin AST ALT Alkaline Phosphatase Ammonia Total Creatine Kinase CK-MB (CK-2) CK-MB (CK-2) Rel Index Total Protein Albumin Urine WBC (Auto) Vancomycin Trough Salicylates Acetaminophen < 5.0 L Plasma/Serum Alcohol 0.08 H Crossmatch 11/23/19 11/23/19 11/23/19 01:19 01:19 03:47 WBC RBC Hgb Hct MCH RDW Plt Count Lymph % (Auto) [place] % (Auto) [place] # Baso # Seg Neutrophils % Seg Neuts % (Manual) Lymphocytes % (Manual) Monocytes % (Manual) Seg Neutrophils # Seg Neutrophils # Man Lymphocytes # (Manual) Monocytes # (Manual) Eosinophils # (Manual) Basophils # (Manual) PT 16.3 H INR 1.29 H APTT ABG pH ABG pO2 ABG HCO3 ABG O2 Saturation ABG Base Excess ABG Hemoglobin Oxyhemoglobin Sodium Potassium Chloride Carbon Dioxide BUN Creatinine Glucose POC Glucose Lactic Acid 2.10 H* 5.00 H* Calcium Ionized Calcium Phosphorus Magnesium Total Bilirubin AST ALT Alkaline Phosphatase Ammonia Total Creatine Kinase CK-MB (CK-2) CK-MB (CK-2) Rel Index Total Protein Albumin Urine WBC (Auto) Vancomycin Trough Salicylates Acetaminophen Plasma/Serum Alcohol Crossmatch 11/23/19 11/23/19 11/23/19 03:47 03:47 04:53 WBC RBC Hgb 9.4 L Hct MCH RDW Plt Count Lymph % (Auto) [place] % (Auto) [place] # Baso # Seg Neutrophils % Seg Neuts % (Manual) Lymphocytes % (Manual) Monocytes % (Manual) Seg Neutrophils # Seg Neutrophils # Man Lymphocytes # (Manual) Monocytes # (Manual) Eosinophils # (Manual) Basophils # (Manual) PT 17.0 H INR 1.36 H APTT 128.2 H* ABG pH ABG pO2 ABG HCO3 ABG O2 Saturation ABG Base Excess ABG Hemoglobin Oxyhemoglobin Sodium Potassium Chloride Carbon Dioxide 18 L BUN Creatinine 0.5 L Glucose 105 H POC Glucose Lactic Acid Calcium 8.3 L Ionized Calcium Phosphorus 2.40 L Magnesium Total Bilirubin 1.30 H AST 761 H ALT 158 H Alkaline Phosphatase 143 H Ammonia Total Creatine Kinase CK-MB (CK-2) CK-MB (CK-2) Rel Index Total Protein Albumin 2.8 L Urine WBC (Auto) Vancomycin Trough Salicylates Acetaminophen Plasma/Serum Alcohol Crossmatch 11/23/19 11/23/19 11/23/19 05:12 06:32 06:32 WBC 16.8 H RBC 3.31 L Hgb 8.9 L Hct 28.7 L MCH 27 L RDW 18.6 H Plt Count Lymph % (Auto) [place] % (Auto) [place] # Baso # Seg Neutrophils % Seg Neuts % (Manual) 94.0 H Lymphocytes % (Manual) 1.0 L Monocytes % (Manual) Seg Neutrophils # Seg Neutrophils # Man 15.8 H Lymphocytes # (Manual) 0.2 L Monocytes # (Manual) Eosinophils # (Manual) Basophils # (Manual) PT INR APTT ABG pH ABG pO2 ABG HCO3 ABG O2 Saturation ABG Base Excess -3.2 L ABG Hemoglobin 9.0 L Oxyhemoglobin 93.6 L Sodium Potassium Chloride Carbon Dioxide BUN Creatinine Glucose POC Glucose Lactic Acid Calcium Ionized Calcium 4.5 L Phosphorus Magnesium Total Bilirubin AST ALT Alkaline Phosphatase Ammonia Total Creatine Kinase CK-MB (CK-2) CK-MB (CK-2) Rel Index Total Protein Albumin Urine WBC (Auto) Vancomycin Trough Salicylates Acetaminophen Plasma/Serum Alcohol Crossmatch 11/23/19 11/24/19 11/24/19 06:32 04:35 04:35 WBC RBC Hgb Hct MCH RDW Plt Count Lymph % (Auto) [place] % (Auto) [place] # Baso # Seg Neutrophils % Seg Neuts % (Manual) Lymphocytes % (Manual) Monocytes % (Manual) Seg Neutrophils # Seg Neutrophils # Man Lymphocytes # (Manual) Monocytes # (Manual) Eosinophils # (Manual) Basophils # (Manual) PT INR APTT ABG pH ABG pO2 ABG HCO3 ABG O2 Saturation ABG Base Excess ABG Hemoglobin Oxyhemoglobin Sodium Potassium Chloride Carbon Dioxide BUN Creatinine Glucose POC Glucose Lactic Acid 3.30 H* Calcium Ionized Calcium Phosphorus Magnesium 1.40 L Total Bilirubin AST ALT Alkaline Phosphatase Ammonia 98.0 H Total Creatine Kinase CK-MB (CK-2) CK-MB (CK-2) Rel Index Total Protein Albumin Urine WBC (Auto) Vancomycin Trough Salicylates Acetaminophen Plasma/Serum Alcohol Crossmatch 11/24/19 11/25/19 11/25/19 05:22 04:34 05:05 WBC 17.3 H RBC 2.88 L Hgb 7.8 L Hct 24.6 L MCH 27 L RDW 18.5 H Plt Count Lymph % (Auto) 7.7 L [place] % (Auto) 9.7 H [place] # 1.7 H Baso # Seg Neutrophils % 82.2 H Seg Neuts % (Manual) Lymphocytes % (Manual) Monocytes % (Manual) Seg Neutrophils # 14.2 H Seg Neutrophils # Man Lymphocytes # (Manual) Monocytes # (Manual) Eosinophils # (Manual) Basophils # (Manual) PT INR APTT ABG pH 7.475 H ABG pO2 ABG HCO3 29.4 H 32.3 H ABG O2 Saturation ABG Base Excess 5.4 H 6.9 H ABG Hemoglobin 9.0 L 10.6 L Oxyhemoglobin 94.3 L Sodium Potassium Chloride Carbon Dioxide BUN Creatinine Glucose POC Glucose Lactic Acid Calcium Ionized Calcium Phosphorus Magnesium Total Bilirubin AST ALT Alkaline Phosphatase Ammonia Total Creatine Kinase CK-MB (CK-2) CK-MB (CK-2) Rel Index Total Protein Albumin Urine WBC (Auto) Vancomycin Trough Salicylates Acetaminophen Plasma/Serum Alcohol Crossmatch 11/25/19 11/25/19 11/26/19 05:05 22:46 03:31 WBC RBC Hgb Hct MCH RDW Plt Count Lymph % (Auto) [place] % (Auto) [place] # Baso # Seg Neutrophils % Seg Neuts % (Manual) Lymphocytes % (Manual) Monocytes % (Manual) Seg Neutrophils # Seg Neutrophils # Man Lymphocytes # (Manual) Monocytes # (Manual) Eosinophils # (Manual) Basophils # (Manual) PT INR APTT ABG pH 7.459 H ABG pO2 ABG HCO3 34.2 H ABG O2 Saturation ABG Base Excess 9.4 H ABG Hemoglobin 7.6 L Oxyhemoglobin 94.8 L Sodium 152 H D 147 H Potassium 2.3 L* D 2.8 L* D Chloride 107.8 H Carbon Dioxide 31 H D 33 H BUN Creatinine 0.6 L 0.6 L Glucose 148 H 177 H POC Glucose Lactic Acid Calcium Ionized Calcium Phosphorus Magnesium Total Bilirubin AST 105 H ALT 71 H Alkaline Phosphatase 155 H Ammonia Total Creatine Kinase CK-MB (CK-2) CK-MB (CK-2) Rel Index Total Protein 5.2 L D Albumin 2.9 L Urine WBC (Auto) Vancomycin Trough Salicylates Acetaminophen Plasma/Serum Alcohol Crossmatch 11/26/19 11/26/19 11/27/19 08:24 08:24 04:20 WBC 12.0 H RBC 3.00 L Hgb 8.0 L 9.3 L Hct 25.9 L 29.7 L MCH 27 L RDW 18.5 H Plt Count Lymph % (Auto) [place] % (Auto) [place] # Baso # Seg Neutrophils % Seg Neuts % (Manual) 89.0 H Lymphocytes % (Manual) 4.0 L Monocytes % (Manual) Seg Neutrophils # Seg Neutrophils # Man 10.7 H Lymphocytes # (Manual) 0.5 L Monocytes # (Manual) Eosinophils # (Manual) Basophils # (Manual) PT INR APTT ABG pH ABG pO2 ABG HCO3 ABG O2 Saturation ABG Base Excess ABG Hemoglobin Oxyhemoglobin Sodium 146 H Potassium 3.4 L D Chloride Carbon Dioxide BUN Creatinine 0.5 L Glucose 165 H POC Glucose Lactic Acid Calcium Ionized Calcium Phosphorus Magnesium Total Bilirubin AST 57 H ALT Alkaline Phosphatase 166 H Ammonia Total Creatine Kinase CK-MB (CK-2) CK-MB (CK-2) Rel Index Total Protein Albumin 2.9 L Urine WBC (Auto) Vancomycin Trough Salicylates Acetaminophen Plasma/Serum Alcohol Crossmatch 11/27/19 11/27/19 11/27/19 04:28 04:28 04:42 WBC RBC Hgb Hct MCH RDW Plt Count Lymph % (Auto) [place] % (Auto) [place] # Baso # Seg Neutrophils % Seg Neuts % (Manual) Lymphocytes % (Manual) Monocytes % (Manual) Seg Neutrophils # Seg Neutrophils # Man Lymphocytes # (Manual) Monocytes # (Manual) Eosinophils # (Manual) Basophils # (Manual) PT INR APTT ABG pH 7.470 H ABG pO2 74.0 L ABG HCO3 33.8 H ABG O2 Saturation ABG Base Excess 9.1 H ABG Hemoglobin 8.7 L Oxyhemoglobin 94.7 L Sodium 146 H Potassium 2.9 L* Chloride Carbon Dioxide BUN 25 H Creatinine Glucose 213 H POC Glucose Lactic Acid Calcium Ionized Calcium Phosphorus 1.00 L Magnesium Total Bilirubin AST ALT Alkaline Phosphatase Ammonia Total Creatine Kinase CK-MB (CK-2) CK-MB (CK-2) Rel Index Total Protein Albumin Urine WBC (Auto) Vancomycin Trough Salicylates Acetaminophen Plasma/Serum Alcohol Crossmatch 11/27/19 11/27/19 11/27/19 05:37 12:20 15:46 WBC RBC Hgb Hct MCH RDW Plt Count Lymph % (Auto) [place] % (Auto) [place] # Baso # Seg Neutrophils % Seg Neuts % (Manual) Lymphocytes % (Manual) Monocytes % (Manual) Seg Neutrophils # Seg Neutrophils # Man Lymphocytes # (Manual) Monocytes # (Manual) Eosinophils # (Manual) Basophils # (Manual) PT INR APTT ABG pH ABG pO2 ABG HCO3 ABG O2 Saturation ABG Base Excess ABG Hemoglobin Oxyhemoglobin Sodium 146 H Potassium 3.5 L D Chloride Carbon Dioxide BUN 24 H Creatinine 0.6 L Glucose 187 H POC Glucose 117 H 220 H Lactic Acid Calcium Ionized Calcium Phosphorus Magnesium Total Bilirubin AST ALT Alkaline Phosphatase Ammonia Total Creatine Kinase CK-MB (CK-2) CK-MB (CK-2) Rel Index Total Protein Albumin Urine WBC (Auto) Vancomycin Trough Salicylates Acetaminophen Plasma/Serum Alcohol Crossmatch 11/27/19 11/28/19 11/28/19 17:28 05:00 05:02 WBC RBC Hgb Hct MCH RDW Plt Count Lymph % (Auto) [place] % (Auto) [place] # Baso # Seg Neutrophils % Seg Neuts % (Manual) Lymphocytes % (Manual) Monocytes % (Manual) Seg Neutrophils # Seg Neutrophils # Man Lymphocytes # (Manual) Monocytes # (Manual) Eosinophils # (Manual) Basophils # (Manual) PT INR APTT ABG pH ABG pO2 72.4 L ABG HCO3 33.6 H ABG O2 Saturation 94.1 L ABG Base Excess 7.3 H ABG Hemoglobin Oxyhemoglobin 91.8 L Sodium 146 H Potassium 3.3 L Chloride Carbon Dioxide BUN 25 H Creatinine 0.6 L Glucose 176 H POC Glucose 198 H Lactic Acid Calcium Ionized Calcium Phosphorus Magnesium Total Bilirubin AST ALT Alkaline Phosphatase Ammonia Total Creatine Kinase CK-MB (CK-2) CK-MB (CK-2) Rel Index Total Protein Albumin Urine WBC (Auto) Vancomycin Trough Salicylates Acetaminophen Plasma/Serum Alcohol Crossmatch 11/28/19 11/28/19 11/29/19 05:02 18:55 10:43 WBC 15.2 H 19.0 H RBC 3.06 L 3.01 L Hgb 8.3 L 8.3 L Hct 27.0 L 26.4 L MCH 27 L RDW 19.0 H 19.7 H Plt Count 479 H 611 H Lymph % (Auto) [place] % (Auto) [place] # Baso # Seg Neutrophils % Seg Neuts % (Manual) 92.0 H Lymphocytes % (Manual) 2.0 L Monocytes % (Manual) Seg Neutrophils # Seg Neutrophils # Man 14.0 H Lymphocytes # (Manual) 0.3 L Monocytes # (Manual) Eosinophils # (Manual) Basophils # (Manual) PT INR APTT ABG pH ABG pO2 ABG HCO3 ABG O2 Saturation ABG Base Excess ABG Hemoglobin Oxyhemoglobin Sodium Potassium Chloride Carbon Dioxide BUN Creatinine Glucose POC Glucose 138 H Lactic Acid Calcium Ionized Calcium Phosphorus Magnesium Total Bilirubin AST ALT Alkaline Phosphatase Ammonia Total Creatine Kinase CK-MB (CK-2) CK-MB (CK-2) Rel Index Total Protein Albumin Urine WBC (Auto) Vancomycin Trough Salicylates Acetaminophen Plasma/Serum Alcohol Crossmatch 11/29/19 11/29/19 11/29/19 10:43 12:27 19:25 WBC RBC Hgb Hct MCH RDW Plt Count Lymph % (Auto) [place] % (Auto) [place] # Baso # Seg Neutrophils % Seg Neuts % (Manual) Lymphocytes % (Manual) Monocytes % (Manual) Seg Neutrophils # Seg Neutrophils # Man Lymphocytes # (Manual) Monocytes # (Manual) Eosinophils # (Manual) Basophils # (Manual) PT INR APTT ABG pH ABG pO2 ABG HCO3 ABG O2 Saturation ABG Base Excess ABG Hemoglobin Oxyhemoglobin Sodium Potassium 2.8 L* Chloride Carbon Dioxide BUN 20 H Creatinine 0.5 L Glucose 121 H POC Glucose 128 H 120 H Lactic Acid Calcium Ionized Calcium Phosphorus Magnesium Total Bilirubin AST ALT Alkaline Phosphatase Ammonia Total Creatine Kinase CK-MB (CK-2) CK-MB (CK-2) Rel Index Total Protein Albumin Urine WBC (Auto) Vancomycin Trough Salicylates Acetaminophen Plasma/Serum Alcohol Crossmatch 11/29/19 11/30/19 11/30/19 23:46 04:10 05:02 WBC RBC Hgb Hct MCH RDW Plt Count Lymph % (Auto) [place] % (Auto) [place] # Baso # Seg Neutrophils % Seg Neuts % (Manual) Lymphocytes % (Manual) Monocytes % (Manual) Seg Neutrophils # Seg Neutrophils # Man Lymphocytes # (Manual) Monocytes # (Manual) Eosinophils # (Manual) Basophils # (Manual) PT INR APTT ABG pH ABG pO2 76.3 L ABG HCO3 32.5 H ABG O2 Saturation ABG Base Excess 6.9 H ABG Hemoglobin 8.0 L Oxyhemoglobin 92.6 L Sodium Potassium Chloride Carbon Dioxide BUN Creatinine Glucose POC Glucose 116 H 128 H Lactic Acid Calcium Ionized Calcium Phosphorus Magnesium Total Bilirubin AST ALT Alkaline Phosphatase Ammonia Total Creatine Kinase CK-MB (CK-2) CK-MB (CK-2) Rel Index Total Protein Albumin Urine WBC (Auto) Vancomycin Trough Salicylates Acetaminophen Plasma/Serum Alcohol Crossmatch 11/30/19 11/30/19 11/30/19 05:25 05:25 12:59 WBC 18.4 H RBC 3.10 L Hgb 8.5 L Hct 27.5 L MCH 27 L RDW 20.9 H Plt Count 691 H Lymph % (Auto) 7.1 L [place] % (Auto) 7.7 H [place] # 1.4 H Baso # Seg Neutrophils % 83.4 H Seg Neuts % (Manual) Lymphocytes % (Manual) Monocytes % (Manual) Seg Neutrophils # 15.4 H Seg Neutrophils # Man Lymphocytes # (Manual) Monocytes # (Manual) Eosinophils # (Manual) Basophils # (Manual) PT INR APTT ABG pH ABG pO2 ABG HCO3 ABG O2 Saturation ABG Base Excess ABG Hemoglobin Oxyhemoglobin Sodium 146 H Potassium Chloride 107.2 H Carbon Dioxide BUN Creatinine 0.5 L Glucose 132 H POC Glucose 124 H Lactic Acid Calcium Ionized Calcium Phosphorus Magnesium Total Bilirubin AST 246 H ALT 274 H Alkaline Phosphatase 203 H Ammonia Total Creatine Kinase CK-MB (CK-2) CK-MB (CK-2) Rel Index Total Protein 5.4 L Albumin 2.9 L Urine WBC (Auto) Vancomycin Trough Salicylates Acetaminophen Plasma/Serum Alcohol Crossmatch 11/30/19 12/01/19 12/01/19 17:53 00:05 05:10 WBC RBC Hgb Hct MCH RDW Plt Count Lymph % (Auto) [place] % (Auto) [place] # Baso # Seg Neutrophils % Seg Neuts % (Manual) Lymphocytes % (Manual) Monocytes % (Manual) Seg Neutrophils # Seg Neutrophils # Man Lymphocytes # (Manual) Monocytes # (Manual) Eosinophils # (Manual) Basophils # (Manual) PT INR APTT ABG pH ABG pO2 ABG HCO3 ABG O2 Saturation ABG Base Excess ABG Hemoglobin Oxyhemoglobin Sodium Potassium Chloride Carbon Dioxide BUN Creatinine Glucose POC Glucose 113 H 143 H 145 H Lactic Acid Calcium Ionized Calcium Phosphorus Magnesium Total Bilirubin AST ALT Alkaline Phosphatase Ammonia Total Creatine Kinase CK-MB (CK-2) CK-MB (CK-2) Rel Index Total Protein Albumin Urine WBC (Auto) Vancomycin Trough Salicylates Acetaminophen Plasma/Serum Alcohol Crossmatch 12/01/19 12/01/19 12/01/19 05:33 08:23 08:23 WBC 22.7 H RBC 2.88 L Hgb 7.9 L Hct 25.2 L MCH 27 L RDW 21.0 H Plt Count 732 H Lymph % (Auto) [place] % (Auto) [place] # Baso # Seg Neutrophils % Seg Neuts % (Manual) 91.0 H Lymphocytes % (Manual) 3.0 L Monocytes % (Manual) Seg Neutrophils # Seg Neutrophils # Man 20.7 H Lymphocytes # (Manual) 0.7 L Monocytes # (Manual) 1.1 H Eosinophils # (Manual) Basophils # (Manual) PT INR APTT ABG pH ABG pO2 68.6 L ABG HCO3 34.1 H ABG O2 Saturation ABG Base Excess 9.0 H ABG Hemoglobin 6.5 L Oxyhemoglobin 94.7 L Sodium Potassium Chloride Carbon Dioxide BUN Creatinine 0.5 L Glucose 125 H POC Glucose Lactic Acid Calcium Ionized Calcium Phosphorus Magnesium Total Bilirubin AST ALT Alkaline Phosphatase Ammonia Total Creatine Kinase CK-MB (CK-2) CK-MB (CK-2) Rel Index Total Protein Albumin Urine WBC (Auto) Vancomycin Trough Salicylates Acetaminophen Plasma/Serum Alcohol Crossmatch 12/01/19 12/01/19 12/01/19 13:21 17:54 20:59 WBC RBC Hgb Hct MCH RDW Plt Count Lymph % (Auto) [place] % (Auto) [place] # Baso # Seg Neutrophils % Seg Neuts % (Manual) Lymphocytes % (Manual) Monocytes % (Manual) Seg Neutrophils # Seg Neutrophils # Man Lymphocytes # (Manual) Monocytes # (Manual) Eosinophils # (Manual) Basophils # (Manual) PT INR APTT ABG pH ABG pO2 78.3 L ABG HCO3 33.8 H ABG O2 Saturation 94.9 L ABG Base Excess 7.9 H ABG Hemoglobin 11.5 L Oxyhemoglobin 92.3 L Sodium Potassium Chloride Carbon Dioxide BUN Creatinine Glucose POC Glucose 111 H 115 H Lactic Acid Calcium Ionized Calcium Phosphorus Magnesium Total Bilirubin AST ALT Alkaline Phosphatase Ammonia Total Creatine Kinase CK-MB (CK-2) CK-MB (CK-2) Rel Index Total Protein Albumin Urine WBC (Auto) Vancomycin Trough Salicylates Acetaminophen Plasma/Serum Alcohol Crossmatch 12/02/19 12/03/19 12/04/19 12:55 20:00 04:26 WBC 15.2 H RBC 2.69 L Hgb 7.4 L Hct 23.6 L MCH 27 L RDW 19.9 H Plt Count 838 H Lymph % (Auto) [place] % (Auto) [place] # Baso # Seg Neutrophils % Seg Neuts % (Manual) Lymphocytes % (Manual) Monocytes % (Manual) Seg Neutrophils # Seg Neutrophils # Man Lymphocytes # (Manual) Monocytes # (Manual) Eosinophils # (Manual) Basophils # (Manual) PT INR APTT ABG pH ABG pO2 68.3 L ABG HCO3 33.5 H ABG O2 Saturation 93.5 L ABG Base Excess 8.4 H ABG Hemoglobin 7.3 L Oxyhemoglobin 90.9 L Sodium Potassium Chloride Carbon Dioxide BUN Creatinine Glucose POC Glucose 107 H Lactic Acid Calcium Ionized Calcium Phosphorus Magnesium Total Bilirubin AST ALT Alkaline Phosphatase Ammonia Total Creatine Kinase CK-MB (CK-2) CK-MB (CK-2) Rel Index Total Protein Albumin Urine WBC (Auto) Vancomycin Trough Salicylates Acetaminophen Plasma/Serum Alcohol Crossmatch 12/04/19 12/04/19 12/04/19 04:26 07:45 12:02 WBC 15.9 H RBC 2.88 L Hgb 7.9 L Hct 25.1 L MCH RDW 20.4 H Plt Count 839 H Lymph % (Auto) 11.3 L [place] % (Auto) 15.2 H [place] # 2.4 H Baso # Seg Neutrophils % 72.4 H Seg Neuts % (Manual) Lymphocytes % (Manual) Monocytes % (Manual) Seg Neutrophils # 11.5 H Seg Neutrophils # Man Lymphocytes # (Manual) Monocytes # (Manual) Eosinophils # (Manual) Basophils # (Manual) PT INR APTT ABG pH ABG pO2 ABG HCO3 ABG O2 Saturation ABG Base Excess ABG Hemoglobin Oxyhemoglobin Sodium Potassium Chloride 96.5 L Carbon Dioxide BUN 21 H Creatinine 0.6 L Glucose 107 H POC Glucose 138 H Lactic Acid Calcium Ionized Calcium Phosphorus Magnesium Total Bilirubin AST ALT Alkaline Phosphatase Ammonia Total Creatine Kinase CK-MB (CK-2) CK-MB (CK-2) Rel Index Total Protein Albumin Urine WBC (Auto) Vancomycin Trough Salicylates Acetaminophen Plasma/Serum Alcohol Crossmatch 12/04/19 12/05/19 12/05/19 18:16 11:55 18:36 WBC RBC Hgb Hct MCH RDW Plt Count Lymph % (Auto) [place] % (Auto) [place] # Baso # Seg Neutrophils % Seg Neuts % (Manual) Lymphocytes % (Manual) Monocytes % (Manual) Seg Neutrophils # Seg Neutrophils # Man Lymphocytes # (Manual) Monocytes # (Manual) Eosinophils # (Manual) Basophils # (Manual) PT INR APTT ABG pH ABG pO2 ABG HCO3 ABG O2 Saturation ABG Base Excess ABG Hemoglobin Oxyhemoglobin Sodium Potassium Chloride Carbon Dioxide BUN Creatinine Glucose POC Glucose 135 H 125 H 135 H Lactic Acid Calcium Ionized Calcium Phosphorus Magnesium Total Bilirubin AST ALT Alkaline Phosphatase Ammonia Total Creatine Kinase CK-MB (CK-2) CK-MB (CK-2) Rel Index Total Protein Albumin Urine WBC (Auto) Vancomycin Trough Salicylates Acetaminophen Plasma/Serum Alcohol Crossmatch 12/05/19 12/06/19 12/06/19 23:30 04:14 05:43 WBC RBC Hgb Hct MCH RDW Plt Count Lymph % (Auto) [place] % (Auto) [place] # Baso # Seg Neutrophils % Seg Neuts % (Manual) Lymphocytes % (Manual) Monocytes % (Manual) Seg Neutrophils # Seg Neutrophils # Man Lymphocytes # (Manual) Monocytes # (Manual) Eosinophils # (Manual) Basophils # (Manual) PT INR APTT ABG pH ABG pO2 ABG HCO3 ABG O2 Saturation ABG Base Excess ABG Hemoglobin Oxyhemoglobin Sodium Potassium 5.6 H Chloride 95.0 L Carbon Dioxide BUN 48 H Creatinine 1.3 H D Glucose POC Glucose 126 H 121 H Lactic Acid Calcium Ionized Calcium Phosphorus Magnesium Total Bilirubin AST 89 H ALT 98 H Alkaline Phosphatase 476 H Ammonia Total Creatine Kinase CK-MB (CK-2) CK-MB (CK-2) Rel Index Total Protein Albumin 2.8 L Urine WBC (Auto) Vancomycin Trough Salicylates Acetaminophen Plasma/Serum Alcohol Crossmatch 12/06/19 12/06/19 12/07/19 10:39 14:34 00:19 WBC 17.3 H RBC 2.60 L Hgb 7.1 L Hct 22.7 L MCH 27 L RDW 20.1 H Plt Count 832 H Lymph % (Auto) [place] % (Auto) [place] # Baso # Seg Neutrophils % Seg Neuts % (Manual) Lymphocytes % (Manual) Monocytes % (Manual) Seg Neutrophils # Seg Neutrophils # Man Lymphocytes # (Manual) Monocytes # (Manual) Eosinophils # (Manual) Basophils # (Manual) PT INR APTT ABG pH ABG pO2 ABG HCO3 ABG O2 Saturation ABG Base Excess ABG Hemoglobin Oxyhemoglobin Sodium Potassium Chloride Carbon Dioxide BUN Creatinine Glucose POC Glucose 128 H 136 H Lactic Acid Calcium Ionized Calcium Phosphorus Magnesium Total Bilirubin AST ALT Alkaline Phosphatase Ammonia Total Creatine Kinase CK-MB (CK-2) CK-MB (CK-2) Rel Index Total Protein Albumin Urine WBC (Auto) Vancomycin Trough Salicylates Acetaminophen Plasma/Serum Alcohol Crossmatch 12/07/19 12/07/19 12/07/19 03:44 03:44 05:53 WBC 16.2 H RBC 2.56 L Hgb 7.1 L Hct 22.3 L MCH RDW 19.4 H Plt Count 782 H Lymph % (Auto) [place] % (Auto) [place] # Baso # Seg Neutrophils % Seg Neuts % (Manual) Lymphocytes % (Manual) Monocytes % (Manual) Seg Neutrophils # Seg Neutrophils # Man Lymphocytes # (Manual) Monocytes # (Manual) Eosinophils # (Manual) Basophils # (Manual) PT INR APTT ABG pH ABG pO2 ABG HCO3 ABG O2 Saturation ABG Base Excess ABG Hemoglobin Oxyhemoglobin Sodium Potassium Chloride 95.6 L Carbon Dioxide BUN 56 H Creatinine 1.4 H Glucose 120 H POC Glucose 128 H Lactic Acid Calcium 10.3 H Ionized Calcium Phosphorus Magnesium Total Bilirubin AST ALT Alkaline Phosphatase Ammonia Total Creatine Kinase CK-MB (CK-2) CK-MB (CK-2) Rel Index Total Protein Albumin Urine WBC (Auto) Vancomycin Trough Salicylates Acetaminophen Plasma/Serum Alcohol Crossmatch 12/07/19 12/07/19 12/08/19 12:54 23:47 00:20 WBC RBC Hgb Hct MCH RDW Plt Count Lymph % (Auto) [place] % (Auto) [place] # Baso # Seg Neutrophils % Seg Neuts % (Manual) Lymphocytes % (Manual) Monocytes % (Manual) Seg Neutrophils # Seg Neutrophils # Man Lymphocytes # (Manual) Monocytes # (Manual) Eosinophils # (Manual) Basophils # (Manual) PT INR APTT ABG pH ABG pO2 ABG HCO3 ABG O2 Saturation ABG Base Excess ABG Hemoglobin Oxyhemoglobin Sodium Potassium Chloride Carbon Dioxide BUN Creatinine Glucose POC Glucose 128 H 130 H 124 H Lactic Acid Calcium Ionized Calcium Phosphorus Magnesium Total Bilirubin AST ALT Alkaline Phosphatase Ammonia Total Creatine Kinase CK-MB (CK-2) CK-MB (CK-2) Rel Index Total Protein Albumin Urine WBC (Auto) Vancomycin Trough Salicylates Acetaminophen Plasma/Serum Alcohol Crossmatch 12/08/19 12/08/19 12/08/19 06:38 12:04 18:26 WBC RBC Hgb Hct MCH RDW Plt Count Lymph % (Auto) [place] % (Auto) [place] # Baso # Seg Neutrophils % Seg Neuts % (Manual) Lymphocytes % (Manual) Monocytes % (Manual) Seg Neutrophils # Seg Neutrophils # Man Lymphocytes # (Manual) Monocytes # (Manual) Eosinophils # (Manual) Basophils # (Manual) PT INR APTT ABG pH ABG pO2 ABG HCO3 ABG O2 Saturation ABG Base Excess ABG Hemoglobin Oxyhemoglobin Sodium Potassium Chloride Carbon Dioxide BUN Creatinine Glucose POC Glucose 137 H 129 H 150 H Lactic Acid Calcium Ionized Calcium Phosphorus Magnesium Total Bilirubin AST ALT Alkaline Phosphatase Ammonia Total Creatine Kinase CK-MB (CK-2) CK-MB (CK-2) Rel Index Total Protein Albumin Urine WBC (Auto) Vancomycin Trough Salicylates Acetaminophen Plasma/Serum Alcohol Crossmatch 12/09/19 12/09/19 12/09/19 00:56 05:34 06:13 WBC RBC Hgb Hct MCH RDW Plt Count Lymph % (Auto) [place] % (Auto) [place] # Baso # Seg Neutrophils % Seg Neuts % (Manual) Lymphocytes % (Manual) Monocytes % (Manual) Seg Neutrophils # Seg Neutrophils # Man Lymphocytes # (Manual) Monocytes # (Manual) Eosinophils # (Manual) Basophils # (Manual) PT INR APTT ABG pH ABG pO2 ABG HCO3 ABG O2 Saturation ABG Base Excess ABG Hemoglobin Oxyhemoglobin Sodium 146 H Potassium Chloride Carbon Dioxide BUN 66 H Creatinine 1.9 H Glucose 116 H POC Glucose 130 H 130 H Lactic Acid Calcium Ionized Calcium Phosphorus Magnesium Total Bilirubin AST ALT Alkaline Phosphatase Ammonia Total Creatine Kinase CK-MB (CK-2) CK-MB (CK-2) Rel Index Total Protein Albumin Urine WBC (Auto) Vancomycin Trough Salicylates Acetaminophen Plasma/Serum Alcohol Crossmatch 12/09/19 12/09/19 12/10/19 11:52 17:50 00:14 WBC RBC Hgb Hct MCH RDW Plt Count Lymph % (Auto) [place] % (Auto) [place] # Baso # Seg Neutrophils % Seg Neuts % (Manual) Lymphocytes % (Manual) Monocytes % (Manual) Seg Neutrophils # Seg Neutrophils # Man Lymphocytes # (Manual) Monocytes # (Manual) Eosinophils # (Manual) Basophils # (Manual) PT INR APTT ABG pH ABG pO2 ABG HCO3 ABG O2 Saturation ABG Base Excess ABG Hemoglobin Oxyhemoglobin Sodium Potassium Chloride Carbon Dioxide BUN Creatinine Glucose POC Glucose 135 H 120 H 116 H Lactic Acid Calcium Ionized Calcium Phosphorus Magnesium Total Bilirubin AST ALT Alkaline Phosphatase Ammonia Total Creatine Kinase CK-MB (CK-2) CK-MB (CK-2) Rel Index Total Protein Albumin Urine WBC (Auto) Vancomycin Trough Salicylates Acetaminophen Plasma/Serum Alcohol Crossmatch 12/10/19 12/10/19 12/10/19 05:38 11:38 17:34 WBC RBC Hgb Hct MCH RDW Plt Count Lymph % (Auto) [place] % (Auto) [place] # Baso # Seg Neutrophils % Seg Neuts % (Manual) Lymphocytes % (Manual) Monocytes % (Manual) Seg Neutrophils # Seg Neutrophils # Man Lymphocytes # (Manual) Monocytes # (Manual) Eosinophils # (Manual) Basophils # (Manual) PT INR APTT ABG pH ABG pO2 ABG HCO3 ABG O2 Saturation ABG Base Excess ABG Hemoglobin Oxyhemoglobin Sodium Potassium Chloride Carbon Dioxide BUN Creatinine Glucose POC Glucose 115 H 112 H 130 H Lactic Acid Calcium Ionized Calcium Phosphorus Magnesium Total Bilirubin AST ALT Alkaline Phosphatase Ammonia Total Creatine Kinase CK-MB (CK-2) CK-MB (CK-2) Rel Index Total Protein Albumin Urine WBC (Auto) Vancomycin Trough Salicylates Acetaminophen Plasma/Serum Alcohol Crossmatch 12/11/19 12/11/19 12/11/19 00:20 05:31 12:22 WBC RBC Hgb Hct MCH RDW Plt Count Lymph % (Auto) [place] % (Auto) [place] # Baso # Seg Neutrophils % Seg Neuts % (Manual) Lymphocytes % (Manual) Monocytes % (Manual) Seg Neutrophils # Seg Neutrophils # Man Lymphocytes # (Manual) Monocytes # (Manual) Eosinophils # (Manual) Basophils # (Manual) PT INR APTT ABG pH ABG pO2 ABG HCO3 ABG O2 Saturation ABG Base Excess ABG Hemoglobin Oxyhemoglobin Sodium Potassium Chloride Carbon Dioxide BUN Creatinine Glucose POC Glucose 124 H 132 H 128 H Lactic Acid Calcium Ionized Calcium Phosphorus Magnesium Total Bilirubin AST ALT Alkaline Phosphatase Ammonia Total Creatine Kinase CK-MB (CK-2) CK-MB (CK-2) Rel Index Total Protein Albumin Urine WBC (Auto) Vancomycin Trough Salicylates Acetaminophen Plasma/Serum Alcohol Crossmatch 12/11/19 12/11/19 12/12/19 18:04 23:42 03:51 WBC RBC Hgb Hct MCH RDW Plt Count Lymph % (Auto) [place] % (Auto) [place] # Baso # Seg Neutrophils % Seg Neuts % (Manual) Lymphocytes % (Manual) Monocytes % (Manual) Seg Neutrophils # Seg Neutrophils # Man Lymphocytes # (Manual) Monocytes # (Manual) Eosinophils # (Manual) Basophils # (Manual) PT INR APTT ABG pH ABG pO2 ABG HCO3 ABG O2 Saturation ABG Base Excess ABG Hemoglobin Oxyhemoglobin Sodium 149 H Potassium Chloride Carbon Dioxide 20 L D BUN 77 H Creatinine 2.8 H Glucose POC Glucose 133 H 154 H Lactic Acid Calcium Ionized Calcium Phosphorus Magnesium Total Bilirubin AST ALT Alkaline Phosphatase Ammonia Total Creatine Kinase CK-MB (CK-2) CK-MB (CK-2) Rel Index Total Protein Albumin Urine WBC (Auto) Vancomycin Trough Salicylates Acetaminophen Plasma/Serum Alcohol Crossmatch 12/12/19 12/12/19 12/12/19 05:18 05:26 10:30 WBC 18.0 H RBC 2.51 L Hgb 6.8 L Hct 22.0 L MCH 27 L RDW 19.9 H Plt Count 582 H Lymph % (Auto) [place] % (Auto) [place] # Baso # Seg Neutrophils % Seg Neuts % (Manual) Lymphocytes % (Manual) Monocytes % (Manual) Seg Neutrophils # Seg Neutrophils # Man Lymphocytes # (Manual) Monocytes # (Manual) Eosinophils # (Manual) Basophils # (Manual) PT INR APTT ABG pH ABG pO2 ABG HCO3 ABG O2 Saturation ABG Base Excess ABG Hemoglobin Oxyhemoglobin Sodium Potassium Chloride Carbon Dioxide BUN Creatinine Glucose POC Glucose 135 H Lactic Acid Calcium Ionized Calcium Phosphorus Magnesium Total Bilirubin AST ALT Alkaline Phosphatase Ammonia Total Creatine Kinase CK-MB (CK-2) CK-MB (CK-2) Rel Index Total Protein Albumin Urine WBC (Auto) Vancomycin Trough Salicylates Acetaminophen Plasma/Serum Alcohol Crossmatch See Detail 12/12/19 12/12/19 12/12/19 11:44 18:10 23:21 WBC RBC Hgb Hct MCH RDW Plt Count Lymph % (Auto) [place] % (Auto) [place] # Baso # Seg Neutrophils % Seg Neuts % (Manual) Lymphocytes % (Manual) Monocytes % (Manual) Seg Neutrophils # Seg Neutrophils # Man Lymphocytes # (Manual) Monocytes # (Manual) Eosinophils # (Manual) Basophils # (Manual) PT INR APTT ABG pH ABG pO2 ABG HCO3 ABG O2 Saturation ABG Base Excess ABG Hemoglobin Oxyhemoglobin Sodium Potassium Chloride Carbon Dioxide BUN Creatinine Glucose POC Glucose 108 H 107 H 126 H Lactic Acid Calcium Ionized Calcium Phosphorus Magnesium Total Bilirubin AST ALT Alkaline Phosphatase Ammonia Total Creatine Kinase CK-MB (CK-2) CK-MB (CK-2) Rel Index Total Protein Albumin Urine WBC (Auto) Vancomycin Trough Salicylates Acetaminophen Plasma/Serum Alcohol Crossmatch 12/13/19 12/13/19 12/13/19 05:41 07:48 07:48 WBC 38.3 H RBC 2.37 L Hgb 6.3 L Hct 20.9 L MCH 27 L RDW 20.2 H Plt Count 546 H Lymph % (Auto) [place] % (Auto) [place] # Baso # Seg Neutrophils % Seg Neuts % (Manual) 93.0 H Lymphocytes % (Manual) 1.0 L Monocytes % (Manual) Seg Neutrophils # Seg Neutrophils # Man 35.6 H Lymphocytes # (Manual) 0.4 L Monocytes # (Manual) Eosinophils # (Manual) Basophils # (Manual) 0.4 H PT INR APTT ABG pH ABG pO2 ABG HCO3 ABG O2 Saturation ABG Base Excess ABG Hemoglobin Oxyhemoglobin Sodium 152 H Potassium 3.1 L D Chloride 111.9 H Carbon Dioxide 21 L BUN 53 H Creatinine 1.9 H Glucose 141 H POC Glucose 128 H Lactic Acid Calcium Ionized Calcium Phosphorus Magnesium Total Bilirubin AST ALT Alkaline Phosphatase 316 H Ammonia Total Creatine Kinase CK-MB (CK-2) CK-MB (CK-2) Rel Index Total Protein Albumin 2.4 L Urine WBC (Auto) Vancomycin Trough Salicylates Acetaminophen Plasma/Serum Alcohol Crossmatch 12/13/19 12/13/19 12/14/19 18:17 23:19 05:36 WBC RBC Hgb Hct MCH RDW Plt Count Lymph % (Auto) [place] % (Auto) [place] # Baso # Seg Neutrophils % Seg Neuts % (Manual) Lymphocytes % (Manual) Monocytes % (Manual) Seg Neutrophils # Seg Neutrophils # Man Lymphocytes # (Manual) Monocytes # (Manual) Eosinophils # (Manual) Basophils # (Manual) PT INR APTT ABG pH ABG pO2 ABG HCO3 ABG O2 Saturation ABG Base Excess ABG Hemoglobin Oxyhemoglobin Sodium Potassium Chloride Carbon Dioxide BUN Creatinine Glucose POC Glucose 141 H 158 H 182 H Lactic Acid Calcium Ionized Calcium Phosphorus Magnesium Total Bilirubin AST ALT Alkaline Phosphatase Ammonia Total Creatine Kinase CK-MB (CK-2) CK-MB (CK-2) Rel Index Total Protein Albumin Urine WBC (Auto) Vancomycin Trough Salicylates Acetaminophen Plasma/Serum Alcohol Crossmatch 12/14/19 12/14/19 12/14/19 08:48 08:48 10:31 WBC 33.3 H RBC 2.70 L Hgb 7.9 L 8.0 L Hct 25.3 L 24.0 L MCH RDW 19.2 H Plt Count 476 H Lymph % (Auto) [place] % (Auto) [place] # Baso # Seg Neutrophils % Seg Neuts % (Manual) Lymphocytes % (Manual) Monocytes % (Manual) Seg Neutrophils # Seg Neutrophils # Man Lymphocytes # (Manual) Monocytes # (Manual) Eosinophils # (Manual) Basophils # (Manual) PT INR APTT ABG pH ABG pO2 ABG HCO3 ABG O2 Saturation ABG Base Excess ABG Hemoglobin Oxyhemoglobin Sodium 153 H Potassium 2.5 L* Chloride 114.9 H Carbon Dioxide 20 L BUN 38 H Creatinine 1.4 H Glucose 177 H POC Glucose Lactic Acid Calcium Ionized Calcium Phosphorus Magnesium Total Bilirubin AST ALT Alkaline Phosphatase Ammonia Total Creatine Kinase CK-MB (CK-2) CK-MB (CK-2) Rel Index Total Protein Albumin Urine WBC (Auto) Vancomycin Trough Salicylates Acetaminophen Plasma/Serum Alcohol Crossmatch 12/14/19 12/14/19 12/14/19 12:57 16:15 17:50 WBC RBC Hgb Hct MCH RDW Plt Count Lymph % (Auto) [place] % (Auto) [place] # Baso # Seg Neutrophils % Seg Neuts % (Manual) Lymphocytes % (Manual) Monocytes % (Manual) Seg Neutrophils # Seg Neutrophils # Man Lymphocytes # (Manual) Monocytes # (Manual) Eosinophils # (Manual) Basophils # (Manual) PT INR APTT ABG pH ABG pO2 73.6 L ABG HCO3 ABG O2 Saturation ABG Base Excess ABG Hemoglobin 7.6 L Oxyhemoglobin 94.0 L Sodium Potassium Chloride Carbon Dioxide BUN Creatinine Glucose POC Glucose 174 H 150 H Lactic Acid Calcium Ionized Calcium Phosphorus Magnesium Total Bilirubin AST ALT Alkaline Phosphatase Ammonia Total Creatine Kinase CK-MB (CK-2) CK-MB (CK-2) Rel Index Total Protein Albumin Urine WBC (Auto) Vancomycin Trough Salicylates Acetaminophen Plasma/Serum Alcohol Crossmatch 12/15/19 12/15/19 12/15/19 00:28 05:27 07:23 WBC 30.0 H RBC 3.11 L Hgb 8.6 L Hct 27.7 L MCH RDW 20.0 H Plt Count 473 H Lymph % (Auto) [place] % (Auto) [place] # Baso # Seg Neutrophils % Seg Neuts % (Manual) Lymphocytes % (Manual) Monocytes % (Manual) Seg Neutrophils # Seg Neutrophils # Man Lymphocytes # (Manual) Monocytes # (Manual) Eosinophils # (Manual) Basophils # (Manual) PT INR APTT ABG pH ABG pO2 ABG HCO3 ABG O2 Saturation ABG Base Excess ABG Hemoglobin Oxyhemoglobin Sodium Potassium Chloride Carbon Dioxide BUN Creatinine Glucose POC Glucose 167 H 148 H Lactic Acid Calcium Ionized Calcium Phosphorus Magnesium Total Bilirubin AST ALT Alkaline Phosphatase Ammonia Total Creatine Kinase CK-MB (CK-2) CK-MB (CK-2) Rel Index Total Protein Albumin Urine WBC (Auto) Vancomycin Trough Salicylates Acetaminophen Plasma/Serum Alcohol Crossmatch 12/15/19 12/15/19 12/15/19 07:23 12:21 17:41 WBC RBC Hgb Hct MCH RDW Plt Count Lymph % (Auto) [place] % (Auto) [place] # Baso # Seg Neutrophils % Seg Neuts % (Manual) Lymphocytes % (Manual) Monocytes % (Manual) Seg Neutrophils # Seg Neutrophils # Man Lymphocytes # (Manual) Monocytes # (Manual) Eosinophils # (Manual) Basophils # (Manual) PT INR APTT ABG pH ABG pO2 ABG HCO3 ABG O2 Saturation ABG Base Excess ABG Hemoglobin Oxyhemoglobin Sodium 147 H Potassium 3.5 L D Chloride 111.2 H Carbon Dioxide 19 L BUN 29 H Creatinine Glucose 126 H POC Glucose 154 H 144 H Lactic Acid Calcium Ionized Calcium Phosphorus Magnesium Total Bilirubin AST ALT Alkaline Phosphatase Ammonia Total Creatine Kinase CK-MB (CK-2) CK-MB (CK-2) Rel Index Total Protein Albumin Urine WBC (Auto) Vancomycin Trough Salicylates Acetaminophen Plasma/Serum Alcohol Crossmatch 12/16/19 12/16/19 12/16/19 00:22 05:30 05:44 WBC 30.8 H RBC 2.58 L Hgb 7.1 L Hct 22.7 L MCH RDW 19.6 H Plt Count 451 H Lymph % (Auto) [place] % (Auto) [place] # Baso # Seg Neutrophils % Seg Neuts % (Manual) Lymphocytes % (Manual) Monocytes % (Manual) Seg Neutrophils # Seg Neutrophils # Man Lymphocytes # (Manual) Monocytes # (Manual) Eosinophils # (Manual) Basophils # (Manual) PT INR APTT ABG pH ABG pO2 ABG HCO3 ABG O2 Saturation ABG Base Excess ABG Hemoglobin Oxyhemoglobin Sodium Potassium Chloride Carbon Dioxide BUN Creatinine Glucose POC Glucose 139 H 126 H Lactic Acid Calcium Ionized Calcium Phosphorus Magnesium Total Bilirubin AST ALT Alkaline Phosphatase Ammonia Total Creatine Kinase CK-MB (CK-2) CK-MB (CK-2) Rel Index Total Protein Albumin Urine WBC (Auto) Vancomycin Trough Salicylates Acetaminophen Plasma/Serum Alcohol Crossmatch 12/16/19 12/16/19 12/16/19 05:44 11:48 17:37 WBC RBC Hgb Hct MCH RDW Plt Count Lymph % (Auto) [place] % (Auto) [place] # Baso # Seg Neutrophils % Seg Neuts % (Manual) Lymphocytes % (Manual) Monocytes % (Manual) Seg Neutrophils # Seg Neutrophils # Man Lymphocytes # (Manual) Monocytes # (Manual) Eosinophils # (Manual) Basophils # (Manual) PT INR APTT ABG pH ABG pO2 ABG HCO3 ABG O2 Saturation ABG Base Excess ABG Hemoglobin Oxyhemoglobin Sodium Potassium 3.4 L Chloride 109.2 H Carbon Dioxide 19 L BUN 27 H Creatinine Glucose 124 H POC Glucose 125 H 148 H Lactic Acid Calcium Ionized Calcium Phosphorus Magnesium Total Bilirubin AST ALT Alkaline Phosphatase Ammonia Total Creatine Kinase CK-MB (CK-2) CK-MB (CK-2) Rel Index Total Protein Albumin Urine WBC (Auto) Vancomycin Trough Salicylates Acetaminophen Plasma/Serum Alcohol Crossmatch 12/16/19 12/17/19 12/17/19 23:43 05:28 12:47 WBC RBC Hgb Hct MCH RDW Plt Count Lymph % (Auto) [place] % (Auto) [place] # Baso # Seg Neutrophils % Seg Neuts % (Manual) Lymphocytes % (Manual) Monocytes % (Manual) Seg Neutrophils # Seg Neutrophils # Man Lymphocytes # (Manual) Monocytes # (Manual) Eosinophils # (Manual) Basophils # (Manual) PT INR APTT ABG pH ABG pO2 ABG HCO3 ABG O2 Saturation ABG Base Excess ABG Hemoglobin Oxyhemoglobin Sodium Potassium Chloride Carbon Dioxide BUN Creatinine Glucose POC Glucose 142 H 140 H 125 H Lactic Acid Calcium Ionized Calcium Phosphorus Magnesium Total Bilirubin AST ALT Alkaline Phosphatase Ammonia Total Creatine Kinase CK-MB (CK-2) CK-MB (CK-2) Rel Index Total Protein Albumin Urine WBC (Auto) Vancomycin Trough Salicylates Acetaminophen Plasma/Serum Alcohol Crossmatch 12/17/19 12/17/19 12/17/19 17:05 18:00 Unknown WBC RBC Hgb Hct MCH RDW Plt Count Lymph % (Auto) [place] % (Auto) [place] # Baso # Seg Neutrophils % Seg Neuts % (Manual) Lymphocytes % (Manual) Monocytes % (Manual) Seg Neutrophils # Seg Neutrophils # Man Lymphocytes # (Manual) Monocytes # (Manual) Eosinophils # (Manual) Basophils # (Manual) PT INR APTT ABG pH ABG pO2 68.1 L ABG HCO3 ABG O2 Saturation 93.7 L ABG Base Excess ABG Hemoglobin 5.0 L Oxyhemoglobin 91.7 L Sodium Potassium Chloride Carbon Dioxide BUN Creatinine Glucose POC Glucose 140 H Lactic Acid Calcium Ionized Calcium Phosphorus Magnesium Total Bilirubin AST ALT Alkaline Phosphatase Ammonia Total Creatine Kinase CK-MB (CK-2) CK-MB (CK-2) Rel Index Total Protein Albumin Urine WBC (Auto) Vancomycin Trough Salicylates Acetaminophen Plasma/Serum Alcohol Crossmatch 12/18/19 12/18/19 12/18/19 00:16 04:53 04:53 WBC 28.6 H RBC 2.27 L Hgb 6.3 L Hct 19.5 L* MCH RDW 20.0 H Plt Count 497 H Lymph % (Auto) [place] % (Auto) [place] # Baso # Seg Neutrophils % Seg Neuts % (Manual) Lymphocytes % (Manual) Monocytes % (Manual) Seg Neutrophils # Seg Neutrophils # Man Lymphocytes # (Manual) Monocytes # (Manual) Eosinophils # (Manual) Basophils # (Manual) PT INR APTT ABG pH ABG pO2 ABG HCO3 ABG O2 Saturation ABG Base Excess ABG Hemoglobin Oxyhemoglobin Sodium Potassium Chloride 107.9 H Carbon Dioxide 20 L BUN 27 H Creatinine 0.6 L Glucose 116 H POC Glucose 123 H Lactic Acid Calcium Ionized Calcium Phosphorus Magnesium Total Bilirubin AST ALT Alkaline Phosphatase Ammonia Total Creatine Kinase CK-MB (CK-2) CK-MB (CK-2) Rel Index Total Protein Albumin Urine WBC (Auto) Vancomycin Trough Salicylates Acetaminophen Plasma/Serum Alcohol Crossmatch 12/18/19 12/18/19 12/18/19 06:38 11:22 12:08 WBC RBC Hgb Hct MCH RDW Plt Count Lymph % (Auto) [place] % (Auto) [place] # Baso # Seg Neutrophils % Seg Neuts % (Manual) Lymphocytes % (Manual) Monocytes % (Manual) Seg Neutrophils # Seg Neutrophils # Man Lymphocytes # (Manual) Monocytes # (Manual) Eosinophils # (Manual) Basophils # (Manual) PT INR APTT ABG pH ABG pO2 ABG HCO3 ABG O2 Saturation ABG Base Excess ABG Hemoglobin Oxyhemoglobin Sodium Potassium Chloride Carbon Dioxide BUN Creatinine Glucose POC Glucose 120 H 127 H Lactic Acid Calcium Ionized Calcium Phosphorus Magnesium Total Bilirubin AST ALT Alkaline Phosphatase Ammonia Total Creatine Kinase CK-MB (CK-2) CK-MB (CK-2) Rel Index Total Protein Albumin Urine WBC (Auto) Vancomycin Trough Salicylates Acetaminophen Plasma/Serum Alcohol Crossmatch See Detail 12/18/19 12/18/19 12/18/19 14:05 17:49 23:53 WBC RBC Hgb Hct MCH RDW Plt Count Lymph % (Auto) [place] % (Auto) [place] # Baso # Seg Neutrophils % Seg Neuts % (Manual) Lymphocytes % (Manual) Monocytes % (Manual) Seg Neutrophils # Seg Neutrophils # Man Lymphocytes # (Manual) Monocytes # (Manual) Eosinophils # (Manual) Basophils # (Manual) PT INR APTT ABG pH 7.267 L ABG pO2 69.8 L ABG HCO3 ABG O2 Saturation 88.4 L ABG Base Excess ABG Hemoglobin 7.1 L Oxyhemoglobin 86.4 L Sodium Potassium Chloride Carbon Dioxide BUN Creatinine Glucose POC Glucose 157 H 128 H Lactic Acid Calcium Ionized Calcium Phosphorus Magnesium Total Bilirubin AST ALT Alkaline Phosphatase Ammonia Total Creatine Kinase CK-MB (CK-2) CK-MB (CK-2) Rel Index Total Protein Albumin Urine WBC (Auto) Vancomycin Trough Salicylates Acetaminophen Plasma/Serum Alcohol Crossmatch 12/19/19 12/19/19 12/19/19 03:37 03:37 05:25 WBC 31.3 H RBC 2.60 L Hgb 7.6 L Hct 23.0 L MCH RDW 19.4 H Plt Count 530 H Lymph % (Auto) [place] % (Auto) [place] # Baso # Seg Neutrophils % Seg Neuts % (Manual) Lymphocytes % (Manual) Monocytes % (Manual) Seg Neutrophils # Seg Neutrophils # Man Lymphocytes # (Manual) Monocytes # (Manual) Eosinophils # (Manual) Basophils # (Manual) PT INR APTT ABG pH ABG pO2 ABG HCO3 ABG O2 Saturation ABG Base Excess ABG Hemoglobin Oxyhemoglobin Sodium Potassium Chloride Carbon Dioxide 18 L BUN 36 H Creatinine Glucose 111 H POC Glucose 123 H Lactic Acid Calcium Ionized Calcium Phosphorus Magnesium Total Bilirubin AST ALT Alkaline Phosphatase Ammonia Total Creatine Kinase CK-MB (CK-2) CK-MB (CK-2) Rel Index Total Protein Albumin Urine WBC (Auto) Vancomycin Trough Salicylates Acetaminophen Plasma/Serum Alcohol Crossmatch 12/19/19 12/19/19 12/20/19 12:59 18:33 00:00 WBC RBC Hgb Hct MCH RDW Plt Count Lymph % (Auto) [place] % (Auto) [place] # Baso # Seg Neutrophils % Seg Neuts % (Manual) Lymphocytes % (Manual) Monocytes % (Manual) Seg Neutrophils # Seg Neutrophils # Man Lymphocytes # (Manual) Monocytes # (Manual) Eosinophils # (Manual) Basophils # (Manual) PT INR APTT ABG pH ABG pO2 ABG HCO3 ABG O2 Saturation ABG Base Excess ABG Hemoglobin Oxyhemoglobin Sodium Potassium Chloride Carbon Dioxide BUN Creatinine Glucose POC Glucose 130 H 118 H 135 H Lactic Acid Calcium Ionized Calcium Phosphorus Magnesium Total Bilirubin AST ALT Alkaline Phosphatase Ammonia Total Creatine Kinase CK-MB (CK-2) CK-MB (CK-2) Rel Index Total Protein Albumin Urine WBC (Auto) Vancomycin Trough Salicylates Acetaminophen Plasma/Serum Alcohol Crossmatch 12/20/19 12/20/19 12/20/19 05:46 12:31 18:07 WBC RBC Hgb Hct MCH RDW Plt Count Lymph % (Auto) [place] % (Auto) [place] # Baso # Seg Neutrophils % Seg Neuts % (Manual) Lymphocytes % (Manual) Monocytes % (Manual) Seg Neutrophils # Seg Neutrophils # Man Lymphocytes # (Manual) Monocytes # (Manual) Eosinophils # (Manual) Basophils # (Manual) PT INR APTT ABG pH ABG pO2 ABG HCO3 ABG O2 Saturation ABG Base Excess ABG Hemoglobin Oxyhemoglobin Sodium Potassium Chloride Carbon Dioxide BUN Creatinine Glucose POC Glucose 131 H 128 H 134 H Lactic Acid Calcium Ionized Calcium Phosphorus Magnesium Total Bilirubin AST ALT Alkaline Phosphatase Ammonia Total Creatine Kinase CK-MB (CK-2) CK-MB (CK-2) Rel Index Total Protein Albumin Urine WBC (Auto) Vancomycin Trough Salicylates Acetaminophen Plasma/Serum Alcohol Crossmatch 12/21/19 12/21/19 12/21/19 03:28 03:28 07:21 WBC 29.4 H RBC 2.30 L Hgb 6.8 L Hct 20.2 L MCH RDW 20.2 H Plt Count 746 H Lymph % (Auto) [place] % (Auto) [place] # Baso # Seg Neutrophils % Seg Neuts % (Manual) 85.0 H Lymphocytes % (Manual) 8.0 L Monocytes % (Manual) Seg Neutrophils # Seg Neutrophils # Man 25.0 H Lymphocytes # (Manual) Monocytes # (Manual) 1.5 H Eosinophils # (Manual) 0.6 H Basophils # (Manual) PT INR APTT ABG pH ABG pO2 ABG HCO3 ABG O2 Saturation ABG Base Excess ABG Hemoglobin Oxyhemoglobin Sodium Potassium Chloride Carbon Dioxide 17 L BUN 57 H Creatinine 1.4 H D Glucose POC Glucose 124 H Lactic Acid Calcium Ionized Calcium Phosphorus Magnesium Total Bilirubin AST ALT Alkaline Phosphatase Ammonia Total Creatine Kinase CK-MB (CK-2) CK-MB (CK-2) Rel Index Total Protein Albumin Urine WBC (Auto) Vancomycin Trough Salicylates Acetaminophen Plasma/Serum Alcohol Crossmatch 12/21/19 12/21/19 12/21/19 08:56 12:06 14:53 WBC RBC Hgb 7.2 L Hct 22.9 L MCH RDW Plt Count Lymph % (Auto) [place] % (Auto) [place] # Baso # Seg Neutrophils % Seg Neuts % (Manual) Lymphocytes % (Manual) Monocytes % (Manual) Seg Neutrophils # Seg Neutrophils # Man Lymphocytes # (Manual) Monocytes # (Manual) Eosinophils # (Manual) Basophils # (Manual) PT INR APTT ABG pH ABG pO2 ABG HCO3 ABG O2 Saturation ABG Base Excess ABG Hemoglobin Oxyhemoglobin Sodium Potassium Chloride Carbon Dioxide BUN Creatinine Glucose POC Glucose 116 H Lactic Acid Calcium Ionized Calcium Phosphorus Magnesium Total Bilirubin AST ALT Alkaline Phosphatase Ammonia Total Creatine Kinase CK-MB (CK-2) CK-MB (CK-2) Rel Index Total Protein Albumin Urine WBC (Auto) Vancomycin Trough 33.8 H Salicylates Acetaminophen Plasma/Serum Alcohol Crossmatch 12/21/19 12/21/19 12/21/19 14:54 17:27 23:49 WBC RBC Hgb Hct MCH RDW Plt Count Lymph % (Auto) [place] % (Auto) [place] # Baso # Seg Neutrophils % Seg Neuts % (Manual) Lymphocytes % (Manual) Monocytes % (Manual) Seg Neutrophils # Seg Neutrophils # Man Lymphocytes # (Manual) Monocytes # (Manual) Eosinophils # (Manual) Basophils # (Manual) PT INR APTT ABG pH ABG pO2 ABG HCO3 ABG O2 Saturation ABG Base Excess ABG Hemoglobin Oxyhemoglobin Sodium Potassium Chloride Carbon Dioxide BUN Creatinine Glucose POC Glucose 145 H 127 H Lactic Acid Calcium Ionized Calcium Phosphorus Magnesium Total Bilirubin AST ALT Alkaline Phosphatase Ammonia Total Creatine Kinase CK-MB (CK-2) CK-MB (CK-2) Rel Index Total Protein Albumin Urine WBC (Auto) Vancomycin Trough Salicylates Acetaminophen Plasma/Serum Alcohol Crossmatch See Detail 12/22/19 12/22/19 12/22/19 04:43 05:56 08:40 WBC RBC Hgb Hct MCH RDW Plt Count Lymph % (Auto) [place] % (Auto) [place] # Baso # Seg Neutrophils % Seg Neuts % (Manual) Lymphocytes % (Manual) Monocytes % (Manual) Seg Neutrophils # Seg Neutrophils # Man Lymphocytes # (Manual) Monocytes # (Manual) Eosinophils # (Manual) Basophils # (Manual) PT INR APTT ABG pH ABG pO2 75.6 L ABG HCO3 ABG O2 Saturation ABG Base Excess -2.6 L ABG Hemoglobin 6.8 L Oxyhemoglobin 94.6 L Sodium Potassium Chloride Carbon Dioxide 17 L BUN 60 H Creatinine 1.4 H Glucose 126 H POC Glucose 153 H Lactic Acid Calcium Ionized Calcium Phosphorus Magnesium Total Bilirubin AST ALT Alkaline Phosphatase Ammonia Total Creatine Kinase CK-MB (CK-2) CK-MB (CK-2) Rel Index Total Protein Albumin Urine WBC (Auto) Vancomycin Trough Salicylates Acetaminophen Plasma/Serum Alcohol Crossmatch 12/22/19 12/22/19 12/23/19 12:07 17:49 04:30 WBC 22.4 H RBC 2.68 L Hgb 7.6 L Hct 22.9 L MCH RDW 19.9 H Plt Count 998 H Lymph % (Auto) [place] % (Auto) [place] # Baso # Seg Neutrophils % Seg Neuts % (Manual) 88.0 H Lymphocytes % (Manual) 2.0 L Monocytes % (Manual) 9.0 H Seg Neutrophils # Seg Neutrophils # Man 19.7 H Lymphocytes # (Manual) 0.4 L Monocytes # (Manual) 2.0 H Eosinophils # (Manual) Basophils # (Manual) PT INR APTT ABG pH ABG pO2 ABG HCO3 ABG O2 Saturation ABG Base Excess ABG Hemoglobin Oxyhemoglobin Sodium Potassium Chloride Carbon Dioxide BUN Creatinine Glucose POC Glucose 140 H 116 H Lactic Acid Calcium Ionized Calcium Phosphorus Magnesium Total Bilirubin AST ALT Alkaline Phosphatase Ammonia Total Creatine Kinase CK-MB (CK-2) CK-MB (CK-2) Rel Index Total Protein Albumin Urine WBC (Auto) Vancomycin Trough Salicylates Acetaminophen Plasma/Serum Alcohol Crossmatch 12/23/19 12/23/19 12/23/19 04:30 12:00 18:06 WBC RBC Hgb Hct MCH RDW Plt Count Lymph % (Auto) [place] % (Auto) [place] # Baso # Seg Neutrophils % Seg Neuts % (Manual) Lymphocytes % (Manual) Monocytes % (Manual) Seg Neutrophils # Seg Neutrophils # Man Lymphocytes # (Manual) Monocytes # (Manual) Eosinophils # (Manual) Basophils # (Manual) PT INR APTT ABG pH ABG pO2 ABG HCO3 ABG O2 Saturation ABG Base Excess ABG Hemoglobin Oxyhemoglobin Sodium Potassium 5.2 H Chloride Carbon Dioxide 21 L BUN 69 H Creatinine 1.5 H Glucose 117 H POC Glucose 128 H 138 H Lactic Acid Calcium Ionized Calcium Phosphorus Magnesium Total Bilirubin AST ALT Alkaline Phosphatase Ammonia Total Creatine Kinase CK-MB (CK-2) CK-MB (CK-2) Rel Index Total Protein Albumin Urine WBC (Auto) Vancomycin Trough Salicylates Acetaminophen Plasma/Serum Alcohol Crossmatch 12/23/19 12/24/19 12/24/19 23:46 04:31 05:08 WBC RBC Hgb Hct MCH RDW Plt Count Lymph % (Auto) [place] % (Auto) [place] # Baso # Seg Neutrophils % Seg Neuts % (Manual) Lymphocytes % (Manual) Monocytes % (Manual) Seg Neutrophils # Seg Neutrophils # Man Lymphocytes # (Manual) Monocytes # (Manual) Eosinophils # (Manual) Basophils # (Manual) PT INR APTT ABG pH ABG pO2 ABG HCO3 ABG O2 Saturation ABG Base Excess ABG Hemoglobin Oxyhemoglobin Sodium Potassium 5.3 H Chloride 107.6 H Carbon Dioxide 20 L BUN 72 H Creatinine 1.6 H Glucose 120 H POC Glucose 120 H 140 H Lactic Acid Calcium Ionized Calcium Phosphorus Magnesium Total Bilirubin AST ALT Alkaline Phosphatase Ammonia Total Creatine Kinase CK-MB (CK-2) CK-MB (CK-2) Rel Index Total Protein Albumin Urine WBC (Auto) Vancomycin Trough Salicylates Acetaminophen Plasma/Serum Alcohol Crossmatch 12/24/19 12/24/19 12/25/19 11:58 17:49 03:47 WBC 36.2 H RBC 2.92 L Hgb 8.4 L Hct 26.1 L MCH RDW 20.2 H Plt Count 942 H Lymph % (Auto) [place] % (Auto) [place] # Baso # Seg Neutrophils % Seg Neuts % (Manual) 97.5 H Lymphocytes % (Manual) 1.0 L Monocytes % (Manual) Seg Neutrophils # Seg Neutrophils # Man 35.3 H Lymphocytes # (Manual) 0.4 L Monocytes # (Manual) Eosinophils # (Manual) Basophils # (Manual) PT INR APTT ABG pH ABG pO2 ABG HCO3 ABG O2 Saturation ABG Base Excess ABG Hemoglobin Oxyhemoglobin Sodium Potassium Chloride Carbon Dioxide BUN Creatinine Glucose POC Glucose 146 H 131 H Lactic Acid Calcium Ionized Calcium Phosphorus Magnesium Total Bilirubin AST ALT Alkaline Phosphatase Ammonia Total Creatine Kinase CK-MB (CK-2) CK-MB (CK-2) Rel Index Total Protein Albumin Urine WBC (Auto) Vancomycin Trough Salicylates Acetaminophen Plasma/Serum Alcohol Crossmatch 12/25/19 12/25/19 12/25/19 03:47 05:30 12:23 WBC RBC Hgb Hct MCH RDW Plt Count Lymph % (Auto) [place] % (Auto) [place] # Baso # Seg Neutrophils % Seg Neuts % (Manual) Lymphocytes % (Manual) Monocytes % (Manual) Seg Neutrophils # Seg Neutrophils # Man Lymphocytes # (Manual) Monocytes # (Manual) Eosinophils # (Manual) Basophils # (Manual) PT INR APTT ABG pH ABG pO2 ABG HCO3 ABG O2 Saturation ABG Base Excess ABG Hemoglobin Oxyhemoglobin Sodium Potassium Chloride Carbon Dioxide 15 L BUN 70 H Creatinine 1.7 H Glucose 153 H POC Glucose 169 H 135 H Lactic Acid Calcium Ionized Calcium Phosphorus Magnesium Total Bilirubin AST ALT Alkaline Phosphatase Ammonia Total Creatine Kinase CK-MB (CK-2) CK-MB (CK-2) Rel Index Total Protein Albumin Urine WBC (Auto) Vancomycin Trough Salicylates Acetaminophen Plasma/Serum Alcohol Crossmatch 12/25/19 12/25/19 12/26/19 17:37 23:29 09:47 WBC 22.1 H RBC 2.83 L Hgb 7.9 L Hct 25.5 L MCH RDW 20.0 H Plt Count 894 H Lymph % (Auto) [place] % (Auto) [place] # Baso # Seg Neutrophils % Seg Neuts % (Manual) Lymphocytes % (Manual) Monocytes % (Manual) Seg Neutrophils # Seg Neutrophils # Man Lymphocytes # (Manual) Monocytes # (Manual) Eosinophils # (Manual) Basophils # (Manual) PT INR APTT ABG pH ABG pO2 ABG HCO3 ABG O2 Saturation ABG Base Excess ABG Hemoglobin Oxyhemoglobin Sodium Potassium Chloride Carbon Dioxide BUN Creatinine Glucose POC Glucose 120 H 140 H Lactic Acid Calcium Ionized Calcium Phosphorus Magnesium Total Bilirubin AST ALT Alkaline Phosphatase Ammonia Total Creatine Kinase CK-MB (CK-2) CK-MB (CK-2) Rel Index Total Protein Albumin Urine WBC (Auto) Vancomycin Trough Salicylates Acetaminophen Plasma/Serum Alcohol Crossmatch 12/26/19 12/26/19 12/26/19 09:47 11:46 17:52 WBC RBC Hgb Hct MCH RDW Plt Count Lymph % (Auto) [place] % (Auto) [place] # Baso # Seg Neutrophils % Seg Neuts % (Manual) Lymphocytes % (Manual) Monocytes % (Manual) Seg Neutrophils # Seg Neutrophils # Man Lymphocytes # (Manual) Monocytes # (Manual) Eosinophils # (Manual) Basophils # (Manual) PT INR APTT ABG pH ABG pO2 ABG HCO3 ABG O2 Saturation ABG Base Excess ABG Hemoglobin Oxyhemoglobin Sodium Potassium Chloride Carbon Dioxide 18 L BUN 65 H Creatinine 1.4 H Glucose 132 H POC Glucose 110 H 145 H Lactic Acid Calcium Ionized Calcium Phosphorus Magnesium Total Bilirubin AST ALT Alkaline Phosphatase Ammonia Total Creatine Kinase CK-MB (CK-2) CK-MB (CK-2) Rel Index Total Protein Albumin Urine WBC (Auto) Vancomycin Trough Salicylates Acetaminophen Plasma/Serum Alcohol Crossmatch 12/27/19 12/27/19 12/27/19 00:01 03:42 03:42 WBC 18.0 H RBC 2.86 L Hgb 8.0 L Hct 25.2 L MCH RDW 19.2 H Plt Count 873 H Lymph % (Auto) 8.4 L [place] % (Auto) 7.5 H [place] # 1.4 H Baso # 0.2 H Seg Neutrophils % 82.2 H Seg Neuts % (Manual) Lymphocytes % (Manual) Monocytes % (Manual) Seg Neutrophils # 14.8 H Seg Neutrophils # Man Lymphocytes # (Manual) Monocytes # (Manual) Eosinophils # (Manual) Basophils # (Manual) PT INR APTT ABG pH ABG pO2 ABG HCO3 ABG O2 Saturation ABG Base Excess ABG Hemoglobin Oxyhemoglobin Sodium Potassium Chloride Carbon Dioxide BUN 73 H Creatinine 1.4 H Glucose 119 H POC Glucose 124 H Lactic Acid Calcium Ionized Calcium Phosphorus Magnesium Total Bilirubin AST ALT Alkaline Phosphatase Ammonia Total Creatine Kinase CK-MB (CK-2) CK-MB (CK-2) Rel Index Total Protein Albumin Urine WBC (Auto) Vancomycin Trough Salicylates Acetaminophen Plasma/Serum Alcohol Crossmatch 12/27/19 12/27/19 12/27/19 05:45 11:45 17:29 WBC RBC Hgb Hct MCH RDW Plt Count Lymph % (Auto) [place] % (Auto) [place] # Baso # Seg Neutrophils % Seg Neuts % (Manual) Lymphocytes % (Manual) Monocytes % (Manual) Seg Neutrophils # Seg Neutrophils # Man Lymphocytes # (Manual) Monocytes # (Manual) Eosinophils # (Manual) Basophils # (Manual) PT INR APTT ABG pH ABG pO2 ABG HCO3 ABG O2 Saturation ABG Base Excess ABG Hemoglobin Oxyhemoglobin Sodium Potassium Chloride Carbon Dioxide BUN Creatinine Glucose POC Glucose 131 H 123 H 134 H Lactic Acid Calcium Ionized Calcium Phosphorus Magnesium Total Bilirubin AST ALT Alkaline Phosphatase Ammonia Total Creatine Kinase CK-MB (CK-2) CK-MB (CK-2) Rel Index Total Protein Albumin Urine WBC (Auto) Vancomycin Trough Salicylates Acetaminophen Plasma/Serum Alcohol Crossmatch 12/28/19 12/28/19 12/28/19 00:12 05:14 11:53 WBC RBC Hgb Hct MCH RDW Plt Count Lymph % (Auto) [place] % (Auto) [place] # Baso # Seg Neutrophils % Seg Neuts % (Manual) Lymphocytes % (Manual) Monocytes % (Manual) Seg Neutrophils # Seg Neutrophils # Man Lymphocytes # (Manual) Monocytes # (Manual) Eosinophils # (Manual) Basophils # (Manual) PT INR APTT ABG pH ABG pO2 ABG HCO3 ABG O2 Saturation ABG Base Excess ABG Hemoglobin Oxyhemoglobin Sodium Potassium Chloride Carbon Dioxide BUN Creatinine Glucose POC Glucose 138 H 130 H 146 H Lactic Acid Calcium Ionized Calcium Phosphorus Magnesium Total Bilirubin AST ALT Alkaline Phosphatase Ammonia Total Creatine Kinase CK-MB (CK-2) CK-MB (CK-2) Rel Index Total Protein Albumin Urine WBC (Auto) Vancomycin Trough Salicylates Acetaminophen Plasma/Serum Alcohol Crossmatch 12/28/19 12/29/19 12/29/19 17:39 00:01 18:11 WBC RBC Hgb Hct MCH RDW Plt Count Lymph % (Auto) [place] % (Auto) [place] # Baso # Seg Neutrophils % Seg Neuts % (Manual) Lymphocytes % (Manual) Monocytes % (Manual) Seg Neutrophils # Seg Neutrophils # Man Lymphocytes # (Manual) Monocytes # (Manual) Eosinophils # (Manual) Basophils # (Manual) PT INR APTT ABG pH ABG pO2 ABG HCO3 ABG O2 Saturation ABG Base Excess ABG Hemoglobin Oxyhemoglobin Sodium Potassium Chloride Carbon Dioxide BUN Creatinine Glucose POC Glucose 117 H 139 H 130 H Lactic Acid Calcium Ionized Calcium Phosphorus Magnesium Total Bilirubin AST ALT Alkaline Phosphatase Ammonia Total Creatine Kinase CK-MB (CK-2) CK-MB (CK-2) Rel Index Total Protein Albumin Urine WBC (Auto) Vancomycin Trough Salicylates Acetaminophen Plasma/Serum Alcohol Crossmatch 12/29/19 12/30/19 12/30/19 23:09 00:02 01:06 WBC 16.7 H RBC 2.91 L Hgb 8.2 L Hct 25.4 L MCH RDW 18.7 H Plt Count 708 H Lymph % (Auto) 9.4 L [place] % (Auto) [place] # 0.9 H Baso # Seg Neutrophils % 83.5 H Seg Neuts % (Manual) Lymphocytes % (Manual) Monocytes % (Manual) Seg Neutrophils # 14.0 H Seg Neutrophils # Man Lymphocytes # (Manual) Monocytes # (Manual) Eosinophils # (Manual) Basophils # (Manual) PT INR APTT ABG pH ABG pO2 ABG HCO3 ABG O2 Saturation ABG Base Excess ABG Hemoglobin Oxyhemoglobin Sodium Potassium Chloride Carbon Dioxide BUN Creatinine Glucose POC Glucose 120 H 114 H Lactic Acid Calcium Ionized Calcium Phosphorus Magnesium Total Bilirubin AST ALT Alkaline Phosphatase Ammonia Total Creatine Kinase CK-MB (CK-2) CK-MB (CK-2) Rel Index Total Protein Albumin Urine WBC (Auto) Vancomycin Trough Salicylates Acetaminophen Plasma/Serum Alcohol Crossmatch 12/30/19 12/30/19 12/30/19 01:06 04:23 05:18 WBC RBC Hgb Hct MCH RDW Plt Count Lymph % (Auto) [place] % (Auto) [place] # Baso # Seg Neutrophils % Seg Neuts % (Manual) Lymphocytes % (Manual) Monocytes % (Manual) Seg Neutrophils # Seg Neutrophils # Man Lymphocytes # (Manual) Monocytes # (Manual) Eosinophils # (Manual) Basophils # (Manual) PT INR APTT ABG pH ABG pO2 ABG HCO3 ABG O2 Saturation ABG Base Excess ABG Hemoglobin 8.3 L Oxyhemoglobin Sodium Potassium Chloride Carbon Dioxide BUN 70 H Creatinine Glucose 122 H POC Glucose 130 H Lactic Acid Calcium Ionized Calcium Phosphorus Magnesium Total Bilirubin AST ALT Alkaline Phosphatase Ammonia Total Creatine Kinase CK-MB (CK-2) CK-MB (CK-2) Rel Index Total Protein Albumin Urine WBC (Auto) Vancomycin Trough Salicylates Acetaminophen Plasma/Serum Alcohol Crossmatch 12/30/19 12/30/19 12/30/19 05:40 12:17 17:43 WBC RBC Hgb Hct MCH RDW Plt Count Lymph % (Auto) [place] % (Auto) [place] # Baso # Seg Neutrophils % Seg Neuts % (Manual) Lymphocytes % (Manual) Monocytes % (Manual) Seg Neutrophils # Seg Neutrophils # Man Lymphocytes # (Manual) Monocytes # (Manual) Eosinophils # (Manual) Basophils # (Manual) PT INR APTT ABG pH ABG pO2 ABG HCO3 ABG O2 Saturation ABG Base Excess ABG Hemoglobin Oxyhemoglobin Sodium Potassium Chloride Carbon Dioxide BUN Creatinine Glucose POC Glucose 135 H 132 H 118 H Lactic Acid Calcium Ionized Calcium Phosphorus Magnesium Total Bilirubin AST ALT Alkaline Phosphatase Ammonia Total Creatine Kinase CK-MB (CK-2) CK-MB (CK-2) Rel Index Total Protein Albumin Urine WBC (Auto) Vancomycin Trough Salicylates Acetaminophen Plasma/Serum Alcohol Crossmatch 12/30/19 12/31/19 12/31/19 23:29 05:19 17:50 WBC RBC Hgb Hct MCH RDW Plt Count Lymph % (Auto) [place] % (Auto) [place] # Baso # Seg Neutrophils % Seg Neuts % (Manual) Lymphocytes % (Manual) Monocytes % (Manual) Seg Neutrophils # Seg Neutrophils # Man Lymphocytes # (Manual) Monocytes # (Manual) Eosinophils # (Manual) Basophils # (Manual) PT INR APTT ABG pH ABG pO2 ABG HCO3 ABG O2 Saturation ABG Base Excess ABG Hemoglobin Oxyhemoglobin Sodium Potassium Chloride Carbon Dioxide BUN Creatinine Glucose POC Glucose 114 H 109 H 116 H Lactic Acid Calcium Ionized Calcium Phosphorus Magnesium Total Bilirubin AST ALT Alkaline Phosphatase Ammonia Total Creatine Kinase CK-MB (CK-2) CK-MB (CK-2) Rel Index Total Protein Albumin Urine WBC (Auto) Vancomycin Trough Salicylates Acetaminophen Plasma/Serum Alcohol Crossmatch 01/01/20 01/01/20 01/01/20 00:10 05:19 12:02 WBC RBC Hgb Hct MCH RDW Plt Count Lymph % (Auto) [place] % (Auto) [place] # Baso # Seg Neutrophils % Seg Neuts % (Manual) Lymphocytes % (Manual) Monocytes % (Manual) Seg Neutrophils # Seg Neutrophils # Man Lymphocytes # (Manual) Monocytes # (Manual) Eosinophils # (Manual) Basophils # (Manual) PT INR APTT ABG pH ABG pO2 ABG HCO3 ABG O2 Saturation ABG Base Excess ABG Hemoglobin Oxyhemoglobin Sodium Potassium Chloride Carbon Dioxide BUN Creatinine Glucose POC Glucose 131 H 122 H 136 H Lactic Acid Calcium Ionized Calcium Phosphorus Magnesium Total Bilirubin AST ALT Alkaline Phosphatase Ammonia Total Creatine Kinase CK-MB (CK-2) CK-MB (CK-2) Rel Index Total Protein Albumin Urine WBC (Auto) Vancomycin Trough Salicylates Acetaminophen Plasma/Serum Alcohol Crossmatch 01/02/20 01/02/20 01/02/20 00:24 05:36 11:41 WBC RBC Hgb Hct MCH RDW Plt Count Lymph % (Auto) [place] % (Auto) [place] # Baso # Seg Neutrophils % Seg Neuts % (Manual) Lymphocytes % (Manual) Monocytes % (Manual) Seg Neutrophils # Seg Neutrophils # Man Lymphocytes # (Manual) Monocytes # (Manual) Eosinophils # (Manual) Basophils # (Manual) PT INR APTT ABG pH ABG pO2 ABG HCO3 ABG O2 Saturation ABG Base Excess ABG Hemoglobin Oxyhemoglobin Sodium Potassium Chloride Carbon Dioxide BUN Creatinine Glucose POC Glucose 119 H 109 H 125 H Lactic Acid Calcium Ionized Calcium Phosphorus Magnesium Total Bilirubin AST ALT Alkaline Phosphatase Ammonia Total Creatine Kinase CK-MB (CK-2) CK-MB (CK-2) Rel Index Total Protein Albumin Urine WBC (Auto) Vancomycin Trough Salicylates Acetaminophen Plasma/Serum Alcohol Crossmatch 01/02/20 01/03/20 01/03/20 17:49 05:29 12:13 WBC RBC Hgb Hct MCH RDW Plt Count Lymph % (Auto) [place] % (Auto) [place] # Baso # Seg Neutrophils % Seg Neuts % (Manual) Lymphocytes % (Manual) Monocytes % (Manual) Seg Neutrophils # Seg Neutrophils # Man Lymphocytes # (Manual) Monocytes # (Manual) Eosinophils # (Manual) Basophils # (Manual) PT INR APTT ABG pH ABG pO2 ABG HCO3 ABG O2 Saturation ABG Base Excess ABG Hemoglobin Oxyhemoglobin Sodium Potassium Chloride Carbon Dioxide BUN Creatinine Glucose POC Glucose 130 H 132 H 113 H Lactic Acid Calcium Ionized Calcium Phosphorus Magnesium Total Bilirubin AST ALT Alkaline Phosphatase Ammonia Total Creatine Kinase CK-MB (CK-2) CK-MB (CK-2) Rel Index Total Protein Albumin Urine WBC (Auto) Vancomycin Trough Salicylates Acetaminophen Plasma/Serum Alcohol Crossmatch 01/03/20 01/04/20 01/04/20 17:32 00:19 05:26 WBC RBC Hgb Hct MCH RDW Plt Count Lymph % (Auto) [place] % (Auto) [place] # Baso # Seg Neutrophils % Seg Neuts % (Manual) Lymphocytes % (Manual) Monocytes % (Manual) Seg Neutrophils # Seg Neutrophils # Man Lymphocytes # (Manual) Monocytes # (Manual) Eosinophils # (Manual) Basophils # (Manual) PT INR APTT ABG pH ABG pO2 ABG HCO3 ABG O2 Saturation ABG Base Excess ABG Hemoglobin Oxyhemoglobin Sodium Potassium Chloride Carbon Dioxide BUN Creatinine Glucose POC Glucose 127 H 141 H 129 H Lactic Acid Calcium Ionized Calcium Phosphorus Magnesium Total Bilirubin AST ALT Alkaline Phosphatase Ammonia Total Creatine Kinase CK-MB (CK-2) CK-MB (CK-2) Rel Index Total Protein Albumin Urine WBC (Auto) Vancomycin Trough Salicylates Acetaminophen Plasma/Serum Alcohol Crossmatch 01/04/20 01/04/20 01/05/20 11:39 17:29 05:22 WBC RBC Hgb Hct MCH RDW Plt Count Lymph % (Auto) [place] % (Auto) [place] # Baso # Seg Neutrophils % Seg Neuts % (Manual) Lymphocytes % (Manual) Monocytes % (Manual) Seg Neutrophils # Seg Neutrophils # Man Lymphocytes # (Manual) Monocytes # (Manual) Eosinophils # (Manual) Basophils # (Manual) PT INR APTT ABG pH ABG pO2 ABG HCO3 ABG O2 Saturation ABG Base Excess ABG Hemoglobin Oxyhemoglobin Sodium Potassium Chloride Carbon Dioxide BUN Creatinine Glucose POC Glucose 167 H 132 H 121 H Lactic Acid Calcium Ionized Calcium Phosphorus Magnesium Total Bilirubin AST ALT Alkaline Phosphatase Ammonia Total Creatine Kinase CK-MB (CK-2) CK-MB (CK-2) Rel Index Total Protein Albumin Urine WBC (Auto) Vancomycin Trough Salicylates Acetaminophen Plasma/Serum Alcohol Crossmatch 01/05/20 01/05/20 01/05/20 12:25 17:40 18:06 WBC RBC Hgb Hct MCH RDW Plt Count Lymph % (Auto) [place] % (Auto) [place] # Baso # Seg Neutrophils % Seg Neuts % (Manual) Lymphocytes % (Manual) Monocytes % (Manual) Seg Neutrophils # Seg Neutrophils # Man Lymphocytes # (Manual) Monocytes # (Manual) Eosinophils # (Manual) Basophils # (Manual) PT INR APTT ABG pH 7.472 H ABG pO2 99.2 H ABG HCO3 ABG O2 Saturation ABG Base Excess ABG Hemoglobin 7.8 L Oxyhemoglobin Sodium Potassium Chloride Carbon Dioxide BUN Creatinine Glucose POC Glucose 106 H 110 H Lactic Acid Calcium Ionized Calcium Phosphorus Magnesium Total Bilirubin AST ALT Alkaline Phosphatase Ammonia Total Creatine Kinase CK-MB (CK-2) CK-MB (CK-2) Rel Index Total Protein Albumin Urine WBC (Auto) Vancomycin Trough Salicylates Acetaminophen Plasma/Serum Alcohol Crossmatch 01/06/20 01/06/20 01/06/20 00:11 05:16 11:30 WBC RBC Hgb Hct MCH RDW Plt Count Lymph % (Auto) [place] % (Auto) [place] # Baso # Seg Neutrophils % Seg Neuts % (Manual) Lymphocytes % (Manual) Monocytes % (Manual) Seg Neutrophils # Seg Neutrophils # Man Lymphocytes # (Manual) Monocytes # (Manual) Eosinophils # (Manual) Basophils # (Manual) PT INR APTT ABG pH ABG pO2 ABG HCO3 ABG O2 Saturation ABG Base Excess ABG Hemoglobin Oxyhemoglobin Sodium Potassium Chloride Carbon Dioxide BUN Creatinine Glucose POC Glucose 108 H 124 H 125 H Lactic Acid Calcium Ionized Calcium Phosphorus Magnesium Total Bilirubin AST ALT Alkaline Phosphatase Ammonia Total Creatine Kinase CK-MB (CK-2) CK-MB (CK-2) Rel Index Total Protein Albumin Urine WBC (Auto) Vancomycin Trough Salicylates Acetaminophen Plasma/Serum Alcohol Crossmatch 01/06/20 01/06/20 01/07/20 17:53 23:51 04:12 WBC 16.5 H RBC 3.29 L Hgb 9.3 L Hct 28.1 L MCH RDW 18.2 H Plt Count 526 H Lymph % (Auto) 8.4 L [place] % (Auto) [place] # 1.0 H Baso # Seg Neutrophils % 84.4 H Seg Neuts % (Manual) Lymphocytes % (Manual) Monocytes % (Manual) Seg Neutrophils # 13.9 H Seg Neutrophils # Man Lymphocytes # (Manual) Monocytes # (Manual) Eosinophils # (Manual) Basophils # (Manual) PT INR APTT ABG pH ABG pO2 ABG HCO3 ABG O2 Saturation ABG Base Excess ABG Hemoglobin Oxyhemoglobin Sodium Potassium Chloride Carbon Dioxide BUN Creatinine Glucose POC Glucose 166 H 128 H Lactic Acid Calcium Ionized Calcium Phosphorus Magnesium Total Bilirubin AST ALT Alkaline Phosphatase Ammonia Total Creatine Kinase CK-MB (CK-2) CK-MB (CK-2) Rel Index Total Protein Albumin Urine WBC (Auto) Vancomycin Trough Salicylates Acetaminophen Plasma/Serum Alcohol Crossmatch 01/07/20 01/07/20 01/07/20 04:12 04:45 11:51 WBC RBC Hgb Hct MCH RDW Plt Count Lymph % (Auto) [place] % (Auto) [place] # Baso # Seg Neutrophils % Seg Neuts % (Manual) Lymphocytes % (Manual) Monocytes % (Manual) Seg Neutrophils # Seg Neutrophils # Man Lymphocytes # (Manual) Monocytes # (Manual) Eosinophils # (Manual) Basophils # (Manual) PT INR APTT ABG pH ABG pO2 ABG HCO3 ABG O2 Saturation ABG Base Excess ABG Hemoglobin Oxyhemoglobin Sodium 136 L Potassium Chloride Carbon Dioxide 21 L BUN 44 H Creatinine 0.6 L Glucose 124 H POC Glucose 134 H 138 H Lactic Acid Calcium Ionized Calcium Phosphorus Magnesium Total Bilirubin AST ALT Alkaline Phosphatase Ammonia Total Creatine Kinase CK-MB (CK-2) CK-MB (CK-2) Rel Index Total Protein Albumin Urine WBC (Auto) Vancomycin Trough Salicylates Acetaminophen Plasma/Serum Alcohol Crossmatch 01/07/20 01/08/20 01/08/20 17:36 00:33 05:29 WBC RBC Hgb Hct MCH RDW Plt Count Lymph % (Auto) [place] % (Auto) [place] # Baso # Seg Neutrophils % Seg Neuts % (Manual) Lymphocytes % (Manual) Monocytes % (Manual) Seg Neutrophils # Seg Neutrophils # Man Lymphocytes # (Manual) Monocytes # (Manual) Eosinophils # (Manual) Basophils # (Manual) PT INR APTT ABG pH ABG pO2 ABG HCO3 ABG O2 Saturation ABG Base Excess ABG Hemoglobin Oxyhemoglobin Sodium Potassium Chloride Carbon Dioxide BUN Creatinine Glucose POC Glucose 128 H 119 H 124 H Lactic Acid Calcium Ionized Calcium Phosphorus Magnesium Total Bilirubin AST ALT Alkaline Phosphatase Ammonia Total Creatine Kinase CK-MB (CK-2) CK-MB (CK-2) Rel Index Total Protein Albumin Urine WBC (Auto) Vancomycin Trough Salicylates Acetaminophen Plasma/Serum Alcohol Crossmatch 01/08/20 01/08/20 01/08/20 12:51 20:25 23:22 WBC RBC Hgb Hct MCH RDW Plt Count Lymph % (Auto) [place] % (Auto) [place] # Baso # Seg Neutrophils % Seg Neuts % (Manual) Lymphocytes % (Manual) Monocytes % (Manual) Seg Neutrophils # Seg Neutrophils # Man Lymphocytes # (Manual) Monocytes # (Manual) Eosinophils # (Manual) Basophils # (Manual) PT INR APTT ABG pH ABG pO2 132.2 H ABG HCO3 ABG O2 Saturation ABG Base Excess ABG Hemoglobin Oxyhemoglobin Sodium Potassium Chloride Carbon Dioxide BUN Creatinine Glucose POC Glucose 128 H 127 H Lactic Acid Calcium Ionized Calcium Phosphorus Magnesium Total Bilirubin AST ALT Alkaline Phosphatase Ammonia Total Creatine Kinase CK-MB (CK-2) CK-MB (CK-2) Rel Index Total Protein Albumin Urine WBC (Auto) Vancomycin Trough Salicylates Acetaminophen Plasma/Serum Alcohol Crossmatch 01/09/20 01/09/20 01/09/20 05:48 08:51 11:29 WBC RBC Hgb Hct MCH RDW Plt Count Lymph % (Auto) [place] % (Auto) [place] # Baso # Seg Neutrophils % Seg Neuts % (Manual) Lymphocytes % (Manual) Monocytes % (Manual) Seg Neutrophils # Seg Neutrophils # Man Lymphocytes # (Manual) Monocytes # (Manual) Eosinophils # (Manual) Basophils # (Manual) PT INR APTT ABG pH ABG pO2 94.3 H ABG HCO3 ABG O2 Saturation ABG Base Excess ABG Hemoglobin 9.5 L Oxyhemoglobin Sodium Potassium Chloride Carbon Dioxide BUN Creatinine Glucose POC Glucose 120 H 112 H Lactic Acid Calcium Ionized Calcium Phosphorus Magnesium Total Bilirubin AST ALT Alkaline Phosphatase Ammonia Total Creatine Kinase CK-MB (CK-2) CK-MB (CK-2) Rel Index Total Protein Albumin Urine WBC (Auto) Vancomycin Trough Salicylates Acetaminophen Plasma/Serum Alcohol Crossmatch 01/09/20 01/10/20 01/10/20 17:57 05:17 12:28 WBC RBC Hgb Hct MCH RDW Plt Count Lymph % (Auto) [place] % (Auto) [place] # Baso # Seg Neutrophils % Seg Neuts % (Manual) Lymphocytes % (Manual) Monocytes % (Manual) Seg Neutrophils # Seg Neutrophils # Man Lymphocytes # (Manual) Monocytes # (Manual) Eosinophils # (Manual) Basophils # (Manual) PT INR APTT ABG pH ABG pO2 ABG HCO3 ABG O2 Saturation ABG Base Excess ABG Hemoglobin Oxyhemoglobin Sodium Potassium Chloride Carbon Dioxide BUN Creatinine Glucose POC Glucose 122 H 115 H 116 H Lactic Acid Calcium Ionized Calcium Phosphorus Magnesium Total Bilirubin AST ALT Alkaline Phosphatase Ammonia Total Creatine Kinase CK-MB (CK-2) CK-MB (CK-2) Rel Index Total Protein Albumin Urine WBC (Auto) Vancomycin Trough Salicylates Acetaminophen Plasma/Serum Alcohol Crossmatch 01/10/20 01/10/20 01/11/20 18:25 23:47 06:05 WBC RBC Hgb Hct MCH RDW Plt Count Lymph % (Auto) [place] % (Auto) [place] # Baso # Seg Neutrophils % Seg Neuts % (Manual) Lymphocytes % (Manual) Monocytes % (Manual) Seg Neutrophils # Seg Neutrophils # Man Lymphocytes # (Manual) Monocytes # (Manual) Eosinophils # (Manual) Basophils # (Manual) PT INR APTT ABG pH ABG pO2 ABG HCO3 ABG O2 Saturation ABG Base Excess ABG Hemoglobin Oxyhemoglobin Sodium Potassium Chloride Carbon Dioxide BUN Creatinine Glucose POC Glucose 123 H 115 H 151 H Lactic Acid Calcium Ionized Calcium Phosphorus Magnesium Total Bilirubin AST ALT Alkaline Phosphatase Ammonia Total Creatine Kinase CK-MB (CK-2) CK-MB (CK-2) Rel Index Total Protein Albumin Urine WBC (Auto) Vancomycin Trough Salicylates Acetaminophen Plasma/Serum Alcohol Crossmatch 01/11/20 01/11/20 01/11/20 07:00 07:00 12:27 WBC 11.8 H RBC 3.40 L Hgb 9.4 L Hct 29.3 L MCH RDW 18.1 H Plt Count 549 H Lymph % (Auto) [place] % (Auto) 9.1 H [place] # 1.1 H Baso # Seg Neutrophils % 73.3 H Seg Neuts % (Manual) Lymphocytes % (Manual) Monocytes % (Manual) Seg Neutrophils # 8.7 H Seg Neutrophils # Man Lymphocytes # (Manual) Monocytes # (Manual) Eosinophils # (Manual) Basophils # (Manual) PT INR APTT ABG pH ABG pO2 ABG HCO3 ABG O2 Saturation ABG Base Excess ABG Hemoglobin Oxyhemoglobin Sodium 134 L Potassium Chloride 97.7 L Carbon Dioxide 21 L BUN 38 H Creatinine 0.5 L Glucose 168 H POC Glucose 117 H Lactic Acid Calcium 10.5 H Ionized Calcium Phosphorus Magnesium Total Bilirubin AST ALT Alkaline Phosphatase Ammonia Total Creatine Kinase CK-MB (CK-2) CK-MB (CK-2) Rel Index Total Protein Albumin Urine WBC (Auto) Vancomycin Trough Salicylates Acetaminophen Plasma/Serum Alcohol Crossmatch 01/11/20 01/12/20 01/12/20 18:19 00:53 05:24 WBC RBC Hgb Hct MCH RDW Plt Count Lymph % (Auto) [place] % (Auto) [place] # Baso # Seg Neutrophils % Seg Neuts % (Manual) Lymphocytes % (Manual) Monocytes % (Manual) Seg Neutrophils # Seg Neutrophils # Man Lymphocytes # (Manual) Monocytes # (Manual) Eosinophils # (Manual) Basophils # (Manual) PT INR APTT ABG pH ABG pO2 ABG HCO3 ABG O2 Saturation ABG Base Excess ABG Hemoglobin Oxyhemoglobin Sodium Potassium Chloride Carbon Dioxide BUN Creatinine Glucose POC Glucose 126 H 126 H 128 H Lactic Acid Calcium Ionized Calcium Phosphorus Magnesium Total Bilirubin AST ALT Alkaline Phosphatase Ammonia Total Creatine Kinase CK-MB (CK-2) CK-MB (CK-2) Rel Index Total Protein Albumin Urine WBC (Auto) Vancomycin Trough Salicylates Acetaminophen Plasma/Serum Alcohol Crossmatch 01/12/20 01/12/20 01/13/20 13:39 18:02 00:27 WBC RBC Hgb Hct MCH RDW Plt Count Lymph % (Auto) [place] % (Auto) [place] # Baso # Seg Neutrophils % Seg Neuts % (Manual) Lymphocytes % (Manual) Monocytes % (Manual) Seg Neutrophils # Seg Neutrophils # Man Lymphocytes # (Manual) Monocytes # (Manual) Eosinophils # (Manual) Basophils # (Manual) PT INR APTT ABG pH ABG pO2 ABG HCO3 ABG O2 Saturation ABG Base Excess ABG Hemoglobin Oxyhemoglobin Sodium Potassium Chloride Carbon Dioxide BUN Creatinine Glucose POC Glucose 146 H 125 H 131 H Lactic Acid Calcium Ionized Calcium Phosphorus Magnesium Total Bilirubin AST ALT Alkaline Phosphatase Ammonia Total Creatine Kinase CK-MB (CK-2) CK-MB (CK-2) Rel Index Total Protein Albumin Urine WBC (Auto) Vancomycin Trough Salicylates Acetaminophen Plasma/Serum Alcohol Crossmatch 01/13/20 01/13/20 01/13/20 05:44 11:54 17:18 WBC RBC Hgb Hct MCH RDW Plt Count Lymph % (Auto) [place] % (Auto) [place] # Baso # Seg Neutrophils % Seg Neuts % (Manual) Lymphocytes % (Manual) Monocytes % (Manual) Seg Neutrophils # Seg Neutrophils # Man Lymphocytes # (Manual) Monocytes # (Manual) Eosinophils # (Manual) Basophils # (Manual) PT INR APTT ABG pH ABG pO2 ABG HCO3 ABG O2 Saturation ABG Base Excess ABG Hemoglobin Oxyhemoglobin Sodium Potassium Chloride Carbon Dioxide BUN Creatinine Glucose POC Glucose 148 H 140 H 130 H Lactic Acid Calcium Ionized Calcium Phosphorus Magnesium Total Bilirubin AST ALT Alkaline Phosphatase Ammonia Total Creatine Kinase CK-MB (CK-2) CK-MB (CK-2) Rel Index Total Protein Albumin Urine WBC (Auto) Vancomycin Trough Salicylates Acetaminophen Plasma/Serum Alcohol Crossmatch 01/14/20 01/14/20 01/14/20 00:16 05:45 12:19 WBC RBC Hgb Hct MCH RDW Plt Count Lymph % (Auto) [place] % (Auto) [place] # Baso # Seg Neutrophils % Seg Neuts % (Manual) Lymphocytes % (Manual) Monocytes % (Manual) Seg Neutrophils # Seg Neutrophils # Man Lymphocytes # (Manual) Monocytes # (Manual) Eosinophils # (Manual) Basophils # (Manual) PT INR APTT ABG pH ABG pO2 ABG HCO3 ABG O2 Saturation ABG Base Excess ABG Hemoglobin Oxyhemoglobin Sodium Potassium Chloride Carbon Dioxide BUN Creatinine Glucose POC Glucose 125 H 146 H 147 H Lactic Acid Calcium Ionized Calcium Phosphorus Magnesium Total Bilirubin AST ALT Alkaline Phosphatase Ammonia Total Creatine Kinase CK-MB (CK-2) CK-MB (CK-2) Rel Index Total Protein Albumin Urine WBC (Auto) Vancomycin Trough Salicylates Acetaminophen Plasma/Serum Alcohol Crossmatch 01/14/20 01/14/20 01/15/20 18:10 23:54 05:14 WBC RBC Hgb Hct MCH RDW Plt Count Lymph % (Auto) [place] % (Auto) [place] # Baso # Seg Neutrophils % Seg Neuts % (Manual) Lymphocytes % (Manual) Monocytes % (Manual) Seg Neutrophils # Seg Neutrophils # Man Lymphocytes # (Manual) Monocytes # (Manual) Eosinophils # (Manual) Basophils # (Manual) PT INR APTT ABG pH ABG pO2 ABG HCO3 ABG O2 Saturation ABG Base Excess ABG Hemoglobin Oxyhemoglobin Sodium Potassium Chloride Carbon Dioxide BUN Creatinine Glucose POC Glucose 136 H 109 H 111 H Lactic Acid Calcium Ionized Calcium Phosphorus Magnesium Total Bilirubin AST ALT Alkaline Phosphatase Ammonia Total Creatine Kinase CK-MB (CK-2) CK-MB (CK-2) Rel Index Total Protein Albumin Urine WBC (Auto) Vancomycin Trough Salicylates Acetaminophen Plasma/Serum Alcohol Crossmatch 01/15/20 01/15/20 01/16/20 12:34 23:25 05:06 WBC RBC Hgb Hct MCH RDW Plt Count Lymph % (Auto) [place] % (Auto) [place] # Baso # Seg Neutrophils % Seg Neuts % (Manual) Lymphocytes % (Manual) Monocytes % (Manual) Seg Neutrophils # Seg Neutrophils # Man Lymphocytes # (Manual) Monocytes # (Manual) Eosinophils # (Manual) Basophils # (Manual) PT INR APTT ABG pH ABG pO2 ABG HCO3 ABG O2 Saturation ABG Base Excess ABG Hemoglobin Oxyhemoglobin Sodium Potassium Chloride Carbon Dioxide BUN Creatinine Glucose POC Glucose 131 H 120 H 121 H Lactic Acid Calcium Ionized Calcium Phosphorus Magnesium Total Bilirubin AST ALT Alkaline Phosphatase Ammonia Total Creatine Kinase CK-MB (CK-2) CK-MB (CK-2) Rel Index Total Protein Albumin Urine WBC (Auto) Vancomycin Trough Salicylates Acetaminophen Plasma/Serum Alcohol Crossmatch 01/16/20 01/17/20 01/17/20 23:46 05:32 06:47 WBC 13.6 H RBC 3.27 L Hgb 9.3 L Hct 28.5 L MCH RDW 17.0 H Plt Count 490 H Lymph % (Auto) 13.1 L [place] % (Auto) [place] # 1.0 H Baso # Seg Neutrophils % 77.5 H Seg Neuts % (Manual) Lymphocytes % (Manual) Monocytes % (Manual) Seg Neutrophils # 10.5 H Seg Neutrophils # Man Lymphocytes # (Manual) Monocytes # (Manual) Eosinophils # (Manual) Basophils # (Manual) PT INR APTT ABG pH ABG pO2 ABG HCO3 ABG O2 Saturation ABG Base Excess ABG Hemoglobin Oxyhemoglobin Sodium Potassium Chloride Carbon Dioxide BUN Creatinine Glucose POC Glucose 107 H 112 H Lactic Acid Calcium Ionized Calcium Phosphorus Magnesium Total Bilirubin AST ALT Alkaline Phosphatase Ammonia Total Creatine Kinase CK-MB (CK-2) CK-MB (CK-2) Rel Index Total Protein Albumin Urine WBC (Auto) Vancomycin Trough Salicylates Acetaminophen Plasma/Serum Alcohol Crossmatch 01/17/20 01/17/20 01/17/20 12:16 17:21 23:34 WBC RBC Hgb Hct MCH RDW Plt Count Lymph % (Auto) [place] % (Auto) [place] # Baso # Seg Neutrophils % Seg Neuts % (Manual) Lymphocytes % (Manual) Monocytes % (Manual) Seg Neutrophils # Seg Neutrophils # Man Lymphocytes # (Manual) Monocytes # (Manual) Eosinophils # (Manual) Basophils # (Manual) PT INR APTT ABG pH ABG pO2 ABG HCO3 ABG O2 Saturation ABG Base Excess ABG Hemoglobin Oxyhemoglobin Sodium Potassium Chloride Carbon Dioxide BUN Creatinine Glucose POC Glucose 145 H 150 H 160 H Lactic Acid Calcium Ionized Calcium Phosphorus Magnesium Total Bilirubin AST ALT Alkaline Phosphatase Ammonia Total Creatine Kinase CK-MB (CK-2) CK-MB (CK-2) Rel Index Total Protein Albumin Urine WBC (Auto) Vancomycin Trough Salicylates Acetaminophen Plasma/Serum Alcohol Crossmatch 01/18/20 01/18/20 01/18/20 05:47 12:43 18:26 WBC RBC Hgb Hct MCH RDW Plt Count Lymph % (Auto) [place] % (Auto) [place] # Baso # Seg Neutrophils % Seg Neuts % (Manual) Lymphocytes % (Manual) Monocytes % (Manual) Seg Neutrophils # Seg Neutrophils # Man Lymphocytes # (Manual) Monocytes # (Manual) Eosinophils # (Manual) Basophils # (Manual) PT INR APTT ABG pH ABG pO2 ABG HCO3 ABG O2 Saturation ABG Base Excess ABG Hemoglobin Oxyhemoglobin Sodium Potassium Chloride Carbon Dioxide BUN Creatinine Glucose POC Glucose 130 H 124 H 119 H Lactic Acid Calcium Ionized Calcium Phosphorus Magnesium Total Bilirubin AST ALT Alkaline Phosphatase Ammonia Total Creatine Kinase CK-MB (CK-2) CK-MB (CK-2) Rel Index Total Protein Albumin Urine WBC (Auto) Vancomycin Trough Salicylates Acetaminophen Plasma/Serum Alcohol Crossmatch 01/19/20 01/19/20 01/19/20 00:14 06:24 12:24 WBC RBC Hgb Hct MCH RDW Plt Count Lymph % (Auto) [place] % (Auto) [place] # Baso # Seg Neutrophils % Seg Neuts % (Manual) Lymphocytes % (Manual) Monocytes % (Manual) Seg Neutrophils # Seg Neutrophils # Man Lymphocytes # (Manual) Monocytes # (Manual) Eosinophils # (Manual) Basophils # (Manual) PT INR APTT ABG pH ABG pO2 ABG HCO3 ABG O2 Saturation ABG Base Excess ABG Hemoglobin Oxyhemoglobin Sodium Potassium Chloride Carbon Dioxide BUN Creatinine Glucose POC Glucose 114 H 144 H 132 H Lactic Acid Calcium Ionized Calcium Phosphorus Magnesium Total Bilirubin AST ALT Alkaline Phosphatase Ammonia Total Creatine Kinase CK-MB (CK-2) CK-MB (CK-2) Rel Index Total Protein Albumin Urine WBC (Auto) Vancomycin Trough Salicylates Acetaminophen Plasma/Serum Alcohol Crossmatch 01/19/20 01/20/20 01/21/20 17:50 12:06 05:46 WBC RBC Hgb Hct MCH RDW Plt Count Lymph % (Auto) [place] % (Auto) [place] # Baso # Seg Neutrophils % Seg Neuts % (Manual) Lymphocytes % (Manual) Monocytes % (Manual) Seg Neutrophils # Seg Neutrophils # Man Lymphocytes # (Manual) Monocytes # (Manual) Eosinophils # (Manual) Basophils # (Manual) PT INR APTT ABG pH ABG pO2 ABG HCO3 ABG O2 Saturation ABG Base Excess ABG Hemoglobin Oxyhemoglobin Sodium Potassium Chloride Carbon Dioxide BUN Creatinine Glucose POC Glucose 144 H 135 H 114 H Lactic Acid Calcium Ionized Calcium Phosphorus Magnesium Total Bilirubin AST ALT Alkaline Phosphatase Ammonia Total Creatine Kinase CK-MB (CK-2) CK-MB (CK-2) Rel Index Total Protein Albumin Urine WBC (Auto) Vancomycin Trough Salicylates Acetaminophen Plasma/Serum Alcohol Crossmatch Allied health notes reviewed: RT
--- NOTE | 2020-01-21 13:42 | Progress Note ---
Assessment and Plan / Anoxic brain injury: suspected CT head: No acute abnormality. EEG ordered showed Generalized slowing. No seizures or epileptiform activity. Per neurology : Patient found to have intact corneal/VOR/cough reflexes, and is withdrawing lower extremities, given that patient had an out of hospital cardiac arrest, the time of which is uncertain, the likelihood of meaningful neurological recovery is somewhat low. -Patient now opening her eyes and able to follow minor command by nodding head /Acute Respiratory failure -s/p intubation, s/p trach and PEG on 12/12 with mechanical ventilation, now on T-piece - CTA was done and negative for PE, - Echo quality is poor, showed diastolic dysfunction - continue weaning as tolerated /Anemia, microcytic - Status post 3 units PRBC transfusion, H&H low stable /Acute metabolic encephalopathy/toxic encephalopathy due to the above - cont supportive care /Hyperammonemia - likely from liver disease related to EtOH abuse - Patient had elevated ammonia level and treated with lactulose /Metabolic Acidosis -Alcohol ketoacidosis vs hypoprofusion -Continue to monitor /ELevated LFTs, stable now - due to ischemic hepatitis. /Leucocytosis with sepsis - Source MRSA bacteremia and MSSA pneumonia. UA showed pyuria. RUQ US showed no ascites. - Repeat TTE negative for vegetation. Completed 7 days of Ceftriaxone on 11/29/2019. -Treated with Abx vancomycin 1 gm IV q 12 hour total 2 week till 12/30/2019 /MSSA pneumonia: Status post vancomycin till 12/30/2019 /ALcohol USe Disorder - given ongoing Alcohol use almost daily, s/p IV Thiamine - monitor /Severe hypokalemia -Repleted /Seizure disorder: treat with Keppra /H. Influenzae, tracheobronchitis, treated with abx DNR CODE STATUS Disposition: prognosis guarded. Family okay for DNR, discharge pending on placement. Brief History: 54-year-old female with a past medical history of Hypertension, Depression, Tobacco use Disorder, Alcohol use Disorder as confirmed by Daughter and pt's mother presents to the hospital status post cardiac arrest at home. EMS found pt in [place]. They were unable to intubate patient with a ET tube because she was clenching down therefore Joe airway placed. Per the ED physician who evaluated pt, Patient presented with a pulse, intermittent respirations, and bagging support via Joe airway with O2 sat of 100%. Accu-Chek of 71 obtained by EMS. She was intubated in the ER and called for admission. Following admission patient was diagnosed with anoxic brain injury, sepsis with MRSA bacteremia and MSSA pneumonia, alcoholic liver disease. Family member initially wished for full code then changed to DNR, patient treated with IV antibiotics for sepsis, status post trach and PEG on 12/13/19. Weaned off from the vent and put on T- piece. Patient is uninsured, waiting for placement, guarded prognosis. Physical exam: General appearance: Present: other (elderly female, open eyes) - EENT Eyes: no scleral icterus, no conjunctival injection, pupil not reactive ENT: clear oral mucosa, dentition normal, no oropharyngeal erythema Ears: bilateral: normal - Neck Neck: trach on place - Respiratory Respiratory effort: other (on T-piece) Respiratory: bilateral: rales - Cardiovascular Rhythm: regular Heart Sounds: Present: S1 & S2. Absent: gallop, rub Extremities: pulses intact, No edema, normal color - Gastrointestinal General gastrointestinal: Present: soft, non-tender, non-distended, normal bowel sounds - Integumentary Integumentary: clear, warm, dry - Musculoskeletal Musculoskeletal: No joint swelling or tenderness - Neurologic Neurologic: other (2+ reflexes throughout). respond to commend and nods head. generalized weakness - Psychiatric Psychiatric: co-operative Subjective Date of service: 01/21/20 Principal diagnosis: Ac cardiopulmonary arrest; Ac hypoxemic resp failure; Acute encephalopathy Interval history: Patient seen and examined medical records reviewed Patient is alert and awake not in acute distress Tracheostomy on T-piece, Vital signs noted discharge pending on placement Objective - Constitutional Vitals: Vital Signs - 12hr 01/21/20 01/21/20 01/21/20 02:00 03:00 04:00 Temperature 98.4 F Pulse Rate 100 H 102 H 105 H Pulse Rate [ From Monitor] Respiratory 21 25 H 20 Rate Blood Pressure 96/65 113/79 116/76 O2 Sat by Pulse 99 99 99 Oximetry O2 Sat by Pulse Oximetry [ Assessment] 01/21/20 01/21/20 01/21/20 05:00 06:00 07:00 Temperature Pulse Rate 105 H 109 H 106 H Pulse Rate [ From Monitor] Respiratory 18 20 19 Rate Blood Pressure 119/83 128/80 131/82 O2 Sat by Pulse 99 99 92 Oximetry O2 Sat by Pulse Oximetry [ Assessment] 01/21/20 01/21/20 01/21/20 08:00 08:41 09:00 Temperature 97.1 F L Pulse Rate 103 H 105 H Pulse Rate [ From Monitor] Respiratory 22 25 H Rate Blood Pressure 131/83 123/83 O2 Sat by Pulse 94 100 99 Oximetry O2 Sat by Pulse 100 Oximetry [ Assessment] 01/21/20 01/21/20 01/21/20 09:45 10:00 11:00 Temperature Pulse Rate 107 H Pulse Rate [ 108 H From Monitor] Respiratory 23 20 21 Rate Blood Pressure 112/70 134/81 O2 Sat by Pulse 100 100 99 Oximetry O2 Sat by Pulse Oximetry [ Assessment] 01/21/20 12:00 Temperature 98 F Pulse Rate 110 H Pulse Rate [ 102 H From Monitor] Respiratory 25 H Rate Blood Pressure 131/74 O2 Sat by Pulse 98 Oximetry O2 Sat by Pulse Oximetry [ Assessment] - Labs CBC & Chem 7: 01/17/20 05:32 01/11/20 07:00 Labs: Abnormal lab results 01/21/20 01/21/20 Range/Units 05:46 13:02 POC Glucose 114 H 136 H (70-105)
[2020-01-21] MEDS: QUEtiapine 100 MG TAB FEEDTUBE SCH (21:52)
[2020-01-22] MEDS: ACETYLCYSTEINE 20% 200 MG/1 ML *FOR INHALATION USE INHALATION SCH ×4 (00:27→21:50)
[2020-01-22] MEDS: ALBUTEROL 2.5 MG/3 ML NEBU IH SCH ×4 (00:27→21:50)
--- NOTE | 2020-01-22 09:41 | Progress Note ---
Assessment and Plan / Anoxic brain injury: suspected CT head: No acute abnormality. EEG ordered showed Generalized slowing. No seizures or epileptiform activity. Per neurology : Patient found to have intact corneal/VOR/cough reflexes, and is withdrawing lower extremities, given that patient had an out of hospital cardiac arrest, the time of which is uncertain, the likelihood of meaningful neurological recovery is somewhat low. -Patient now opening her eyes and able to follow minor command by nodding head /Acute Respiratory failure -s/p intubation, s/p trach and PEG on 12/12 with mechanical ventilation, now on T-piece - CTA was done and negative for PE, - Echo quality is poor, showed diastolic dysfunction - continue weaning as tolerated /Anemia, microcytic - Status post 3 units PRBC transfusion, H&H low stable /Acute metabolic encephalopathy/toxic encephalopathy due to the above - cont supportive care /Hyperammonemia - likely from liver disease related to EtOH abuse - Patient had elevated ammonia level and treated with lactulose /Metabolic Acidosis -Alcohol ketoacidosis vs hypoprofusion -Continue to monitor /ELevated LFTs, stable now - due to ischemic hepatitis. /Leucocytosis with sepsis - Source MRSA bacteremia and MSSA pneumonia. UA showed pyuria. RUQ US showed no ascites. - Repeat TTE negative for vegetation. Completed 7 days of Ceftriaxone on 11/29/2019. -Treated with Abx vancomycin 1 gm IV q 12 hour total 2 week till 12/30/2019 /MSSA pneumonia: Status post vancomycin till 12/30/2019 /ALcohol USe Disorder - given ongoing Alcohol use almost daily, s/p IV Thiamine - monitor /Severe hypokalemia -Repleted /Seizure disorder: treat with Keppra /H. Influenzae, tracheobronchitis, treated with abx DNR CODE STATUS Disposition: prognosis guarded. Family okay for DNR, PT recommended subacute rehab, discharge pending on placement. Brief History: 54-year-old female with a past medical history of Hypertension, Depression, Tobacco use Disorder, Alcohol use Disorder as confirmed by Daughter and pt's mother presents to the hospital status post cardiac arrest at home. EMS found pt in [place]. They were unable to intubate patient with a ET tube because she was clenching down therefore Joe airway placed. Per the ED physician who evaluated pt, Patient presented with a pulse, intermittent respirations, and bagging support via Joe airway with O2 sat of 100%. Accu-Chek of 71 obtained by EMS. She was intubated in the ER and called for admission. Following admission patient was diagnosed with anoxic brain injury, sepsis with MRSA bacteremia and MSSA pneumonia, alcoholic liver disease. Family member initially wished for full code then changed to DNR, patient treated with IV antibiotics for sepsis, status post trach and PEG on 12/13/19. Weaned off from the vent and put on T- piece. Patient is uninsured, waiting for placement, guarded prognosis. Physical exam: General appearance: Present: other (elderly female, open eyes) - EENT Eyes: no scleral icterus, no conjunctival injection, pupil not reactive ENT: clear oral mucosa, dentition normal, no oropharyngeal erythema Ears: bilateral: normal - Neck Neck: trach on place - Respiratory Respiratory effort: other (on T-piece) Respiratory: bilateral: rales - Cardiovascular Rhythm: regular Heart Sounds: Present: S1 & S2. Absent: gallop, rub Extremities: pulses intact, No edema, normal color - Gastrointestinal General gastrointestinal: Present: soft, non-tender, non-distended, normal bowel sounds - Integumentary Integumentary: clear, warm, dry - Musculoskeletal Musculoskeletal: No joint swelling or tenderness - Neurologic Neurologic: other (2+ reflexes throughout). respond to commend and nods head. generalized weakness - Psychiatric Psychiatric: co-operative Subjective Date of service: 01/22/20 Principal diagnosis: Ac cardiopulmonary arrest; Ac hypoxemic resp failure; Acute encephalopathy Interval history: Patient seen and examined medical records reviewed Patient is alert and awake not in acute distress Tracheostomy on T-piece, Vital signs noted discharge pending on placement Objective - Constitutional Vitals: Vital Signs - 12hr 01/21/20 01/21/20 01/22/20 22:00 23:35 00:00 Temperature 98.2 F Pulse Rate 100 H 109 H Pulse Rate [ Anterior Left Throughout] Respiratory 18 Rate Respiratory Rate [Anterior Left Throughout ] Respiratory Rate [ Generalized] Blood Pressure 126/80 O2 Sat by Pulse 97 98 Oximetry 01/22/20 01/22/20 01/22/20 00:35 00:49 03:30 Temperature 98.3 F Pulse Rate Pulse Rate [ 78 Anterior Left Throughout] Respiratory 18 Rate Respiratory 18 Rate [Anterior Left Throughout ] Respiratory 2 L Rate [ Generalized] Blood Pressure 117/74 O2 Sat by Pulse Oximetry 01/22/20 01/22/20 01/22/20 04:00 04:09 08:07 Temperature 98.9 F Pulse Rate 102 H 86 101 H Pulse Rate [ Anterior Left Throughout] Respiratory 24 Rate Respiratory Rate [Anterior Left Throughout ] Respiratory Rate [ Generalized] Blood Pressure 122/80 O2 Sat by Pulse 92 97 Oximetry - Labs CBC & Chem 7: 01/17/20 05:32 01/11/20 07:00 Labs: Abnormal lab results 01/21/20 01/21/20 01/22/20 Range/Units 13:02 23:49 05:41 POC Glucose 136 H 120 H 124 H (70-105)
[2020-01-22] MEDS: levETIRAcetam 500 MG/5 ML ORAL LIQD PO SCH ×2 (10:54→22:30)
[2020-01-22] MEDS: LANSOPRAZOLE 30 MG SOLUTAB FEEDTUBE SCH (10:54)
[2020-01-22] MEDS: SERTRALINE 50 MG TAB PO SCH (10:54)
[2020-01-22] MEDS: TAMSULOSIN 0.4 MG CAP PO SCH (10:55)
[2020-01-22] MEDS: GLYCOPYRROLATE 1 MG TAB PO SCH ×3 (10:57→22:30)
[2020-01-22] MEDS: MIRTAZAPINE 30 MG TAB PO SCH (10:57)
[2020-01-22] MEDS: hydrOXYzine PAMOATE 25 MG CAP PO SCH ×2 (10:57→22:30)
[2020-01-22] MEDS: QUEtiapine 100 MG TAB FEEDTUBE SCH (22:30)
[2020-01-23] MEDS: ACETYLCYSTEINE 20% 200 MG/1 ML *FOR INHALATION USE INHALATION SCH ×3 (08:00→21:29)
[2020-01-23] MEDS: ALBUTEROL 2.5 MG/3 ML NEBU IH SCH ×3 (08:08→21:29)
[2020-01-23] MEDS: GLYCOPYRROLATE 1 MG TAB PO SCH ×3 (08:25→21:50)
--- NOTE | 2020-01-23 09:11 | Progress Note ---
Assessment and Plan Acute cardiopulmonary arrest with ROSC Acute hypoxemic respiratory failure s/p MVS s/p Tracheostomy Oropharyngeal dysphagia s/p PEG MRSA Bacteremia- treated MRSA pneumonia-treated Acute ebixobqwm-wyhrw-ffbnfs encephalopathy Metabolic acidosis/alcoholic acidosis/Lactic acidosis( resolved) Ischemic hepatitis Erythrocytosis Tobacco use disorder Alcohol use Disorder -CBC, BMP prn -Replace and correct electrolytes as indicated -Trach care, airway clearance, secretion management( continue scopolamine patch and Robinul) -CXR, ABG prn -Weaning trials as tolerated- ATP then PMV and possible capping as tolerated by secretions -Continue contact isolation for MRSA -Trend WCC and temperature curve -Continue all care as documented below. -PT/OT -Supportive transfusions as indicated for HgB <7g/dL -Continue aspiration precautions, HOB>40 -Continue Stress ulcer prophylaxis -Continue enteric nutritional support at goal rate. -Continue to monitor glycemic control, with target blood glucose 140-180 mg/dL while critically ill. -Avoid hypoglycemia - Continue to wean supplemental oxygen for target O2 sat's > 90% -Continue thiamine, multivitamin and electrolyte replacement -Continue to avoid nephrotoxins, adjust all medications for GFR and CrCL - Continue bronchodilators with pulmonary hygiene - Continue prn analgesia per CPOT score - Continue to maintain of sleep-wake cycle, avoid delirium - Continue mobility protocol and skin assessment per protocol for pressure ulcer prevention - Continue to monitor for clinical seizures - continue other care per attending / other consultants CONDITION: FAIR PROGNOSIS: FAIR CODE STATUS: DNAR Subjective Date of service: 01/23/20 Principal diagnosis: Ac cardiopulmonary arrest; Ac hypoxemic resp failure; Acute encephalopathy Interval history: Patient is seen today for: Acute cardiopulmonary arrest with ROSC; Acute hypoxemic respiratory failure; Acute metabolic-toxic encephalopathy; Ischemic hepatitis; Leucocytosis with lactic acidosis; Tobacco use disorder; Alcohol use Disorder; s/p tracheostomy; s/p PEG Seen and examined at bedside; 24hour events reviewed; nursing and respiratory care staff consulted; no adverse overnight events reported to me; resting peacefully in bed; continues to tolerate ATP No fevers, no vomiting, continues to tolerate tube feedings Awake and alert, responsive Working with OT/PT No new issues Objective Vital Signs - 12hr 01/22/20 01/22/20 01/22/20 21:49 21:50 23:14 Temperature 98.4 F Pulse Rate 112 H Pulse Rate [ 111 H Anterior Right Throughout] Respiratory 18 Rate Respiratory 18 Rate [Anterior Right Throughout] Blood Pressure 102/66 O2 Sat by Pulse 100 97 Oximetry O2 Sat by Pulse Oximetry [ Assessment] 01/23/20 01/23/20 01/23/20 03:41 05:20 08:19 Temperature 97.7 F 98.9 F Pulse Rate 108 H 107 H Pulse Rate [ Anterior Right Throughout] Respiratory 18 18 Rate Respiratory Rate [Anterior Right Throughout] Blood Pressure 124/82 123/82 O2 Sat by Pulse 94 68 L Oximetry O2 Sat by Pulse 95 Oximetry [ Assessment] Constitutional: no acute distress, other (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, with midline tracheostomy, ATP with copious thin secretions) Eyes: non-icteric ENT: oropharynx moist, other (s/p trach) Neck: supple, no lymphadenopathy, no JVD Effort: normal Ascultation: Bilateral: diminished breath sounds, rhonchi Percussion: Bilateral: not dull Cardiovascular: regular rate and rhythm (tachycardia), other (S1,S2) Gastrointestinal: normoactive bowel sounds, soft, non-tender, non-distended Integumentary: normal Extremities: no cyanosis, no edema, pulses normal, no ischemia or petechiae Neurologic: other (awake, following simple commands) Psychiatric: other (Psychiatric: Unable to assess re: AMS) CBC and BMP: 01/26/20 05:59 01/26/20 05:59 ABG, PT/INR, D-dimer: ABG ABG pH 7.429 pH Units (7.350-7.450) 01/09/20 08:51 ABG pCO2 39.1 mm Hg 01/09/20 08:51 ABG pO2 94.3 mm Hg (80.0-90.0) H 01/09/20 08:51 ABG O2 Saturation 97.4 % (95.0-99.0) 01/09/20 08:51 PT/INR, D-dimer PT 17.0 Sec. (12.2-14.9) H 11/23/19 03:47 INR 1.36 (0.87-1.13) H 11/23/19 03:47 Abnormal lab findings: Abnormal Labs 11/22/19 11/22/19 11/22/19 23:17 23:18 23:27 WBC 21.2 H RBC 3.59 L Hgb 9.8 L Hct MCH 27 L RDW 18.6 H Plt Count 454 H Lymph % (Auto) [place] % (Auto) [place] # Baso # Seg Neutrophils % Seg Neuts % (Manual) 86.0 H Lymphocytes % (Manual) 9.0 L Monocytes % (Manual) Seg Neutrophils # Seg Neutrophils # Man 18.2 H Lymphocytes # (Manual) Monocytes # (Manual) 1.1 H Eosinophils # (Manual) Basophils # (Manual) PT INR APTT ABG pH ABG pO2 ABG HCO3 ABG O2 Saturation ABG Base Excess ABG Hemoglobin Oxyhemoglobin Sodium Potassium Chloride Carbon Dioxide BUN Creatinine Glucose POC Glucose 53 L Lactic Acid Calcium Ionized Calcium Phosphorus Magnesium Total Bilirubin AST ALT Alkaline Phosphatase Ammonia Total Creatine Kinase CK-MB (CK-2) CK-MB (CK-2) Rel Index Total Protein Albumin Urine WBC (Auto) 40.0 H Vancomycin Trough Salicylates Acetaminophen Plasma/Serum Alcohol Crossmatch 11/22/19 11/22/19 11/22/19 23:27 23:27 23:27 WBC RBC Hgb Hct MCH RDW Plt Count Lymph % (Auto) [place] % (Auto) [place] # Baso # Seg Neutrophils % Seg Neuts % (Manual) Lymphocytes % (Manual) Monocytes % (Manual) Seg Neutrophils # Seg Neutrophils # Man Lymphocytes # (Manual) Monocytes # (Manual) Eosinophils # (Manual) Basophils # (Manual) PT INR APTT ABG pH ABG pO2 ABG HCO3 ABG O2 Saturation ABG Base Excess ABG Hemoglobin Oxyhemoglobin Sodium Potassium 2.4 L* Chloride 85.1 L Carbon Dioxide 19 L BUN Creatinine 0.5 L Glucose 261 H POC Glucose Lactic Acid Calcium Ionized Calcium Phosphorus Magnesium Total Bilirubin AST 609 H ALT 152 H Alkaline Phosphatase 160 H Ammonia 117.0 H Total Creatine Kinase 139 H CK-MB (CK-2) 8.3 H CK-MB (CK-2) Rel Index 5.9 H Total Protein Albumin 3.6 L Urine WBC (Auto) Vancomycin Trough Salicylates < 0.3 L Acetaminophen Plasma/Serum Alcohol Crossmatch 11/22/19 11/22/19 11/23/19 23:27 23:27 01:10 WBC RBC Hgb Hct MCH RDW Plt Count Lymph % (Auto) [place] % (Auto) [place] # Baso # Seg Neutrophils % Seg Neuts % (Manual) Lymphocytes % (Manual) Monocytes % (Manual) Seg Neutrophils # Seg Neutrophils # Man Lymphocytes # (Manual) Monocytes # (Manual) Eosinophils # (Manual) Basophils # (Manual) PT INR APTT ABG pH 7.273 L ABG pO2 209.7 H ABG HCO3 ABG O2 Saturation 99.2 H ABG Base Excess -3.9 L ABG Hemoglobin 10.6 L Oxyhemoglobin 93.9 L Sodium Potassium Chloride Carbon Dioxide BUN Creatinine Glucose POC Glucose Lactic Acid Calcium Ionized Calcium Phosphorus Magnesium Total Bilirubin AST ALT Alkaline Phosphatase Ammonia Total Creatine Kinase CK-MB (CK-2) CK-MB (CK-2) Rel Index Total Protein Albumin Urine WBC (Auto) Vancomycin Trough Salicylates Acetaminophen < 5.0 L Plasma/Serum Alcohol 0.08 H Crossmatch 11/23/19 11/23/19 11/23/19 01:19 01:19 03:47 WBC RBC Hgb Hct MCH RDW Plt Count Lymph % (Auto) [place] % (Auto) [place] # Baso # Seg Neutrophils % Seg Neuts % (Manual) Lymphocytes % (Manual) Monocytes % (Manual) Seg Neutrophils # Seg Neutrophils # Man Lymphocytes # (Manual) Monocytes # (Manual) Eosinophils # (Manual) Basophils # (Manual) PT 16.3 H INR 1.29 H APTT ABG pH ABG pO2 ABG HCO3 ABG O2 Saturation ABG Base Excess ABG Hemoglobin Oxyhemoglobin Sodium Potassium Chloride Carbon Dioxide BUN Creatinine Glucose POC Glucose Lactic Acid 2.10 H* 5.00 H* Calcium Ionized Calcium Phosphorus Magnesium Total Bilirubin AST ALT Alkaline Phosphatase Ammonia Total Creatine Kinase CK-MB (CK-2) CK-MB (CK-2) Rel Index Total Protein Albumin Urine WBC (Auto) Vancomycin Trough Salicylates Acetaminophen Plasma/Serum Alcohol Crossmatch 11/23/19 11/23/19 11/23/19 03:47 03:47 04:53 WBC RBC Hgb 9.4 L Hct MCH RDW Plt Count Lymph % (Auto) [place] % (Auto) [place] # Baso # Seg Neutrophils % Seg Neuts % (Manual) Lymphocytes % (Manual) Monocytes % (Manual) Seg Neutrophils # Seg Neutrophils # Man Lymphocytes # (Manual) Monocytes # (Manual) Eosinophils # (Manual) Basophils # (Manual) PT 17.0 H INR 1.36 H APTT 128.2 H* ABG pH ABG pO2 ABG HCO3 ABG O2 Saturation ABG Base Excess ABG Hemoglobin Oxyhemoglobin Sodium Potassium Chloride Carbon Dioxide 18 L BUN Creatinine 0.5 L Glucose 105 H POC Glucose Lactic Acid Calcium 8.3 L Ionized Calcium Phosphorus 2.40 L Magnesium Total Bilirubin 1.30 H AST 761 H ALT 158 H Alkaline Phosphatase 143 H Ammonia Total Creatine Kinase CK-MB (CK-2) CK-MB (CK-2) Rel Index Total Protein Albumin 2.8 L Urine WBC (Auto) Vancomycin Trough Salicylates Acetaminophen Plasma/Serum Alcohol Crossmatch 11/23/19 11/23/19 11/23/19 05:12 06:32 06:32 WBC 16.8 H RBC 3.31 L Hgb 8.9 L Hct 28.7 L MCH 27 L RDW 18.6 H Plt Count Lymph % (Auto) [place] % (Auto) [place] # Baso # Seg Neutrophils % Seg Neuts % (Manual) 94.0 H Lymphocytes % (Manual) 1.0 L Monocytes % (Manual) Seg Neutrophils # Seg Neutrophils # Man 15.8 H Lymphocytes # (Manual) 0.2 L Monocytes # (Manual) Eosinophils # (Manual) Basophils # (Manual) PT INR APTT ABG pH ABG pO2 ABG HCO3 ABG O2 Saturation ABG Base Excess -3.2 L ABG Hemoglobin 9.0 L Oxyhemoglobin 93.6 L Sodium Potassium Chloride Carbon Dioxide BUN Creatinine Glucose POC Glucose Lactic Acid Calcium Ionized Calcium 4.5 L Phosphorus Magnesium Total Bilirubin AST ALT Alkaline Phosphatase Ammonia Total Creatine Kinase CK-MB (CK-2) CK-MB (CK-2) Rel Index Total Protein Albumin Urine WBC (Auto) Vancomycin Trough Salicylates Acetaminophen Plasma/Serum Alcohol Crossmatch 11/23/19 11/24/19 11/24/19 06:32 04:35 04:35 WBC RBC Hgb Hct MCH RDW Plt Count Lymph % (Auto) [place] % (Auto) [place] # Baso # Seg Neutrophils % Seg Neuts % (Manual) Lymphocytes % (Manual) Monocytes % (Manual) Seg Neutrophils # Seg Neutrophils # Man Lymphocytes # (Manual) Monocytes # (Manual) Eosinophils # (Manual) Basophils # (Manual) PT INR APTT ABG pH ABG pO2 ABG HCO3 ABG O2 Saturation ABG Base Excess ABG Hemoglobin Oxyhemoglobin Sodium Potassium Chloride Carbon Dioxide BUN Creatinine Glucose POC Glucose Lactic Acid 3.30 H* Calcium Ionized Calcium Phosphorus Magnesium 1.40 L Total Bilirubin AST ALT Alkaline Phosphatase Ammonia 98.0 H Total Creatine Kinase CK-MB (CK-2) CK-MB (CK-2) Rel Index Total Protein Albumin Urine WBC (Auto) Vancomycin Trough Salicylates Acetaminophen Plasma/Serum Alcohol Crossmatch 11/24/19 11/25/19 11/25/19 05:22 04:34 05:05 WBC 17.3 H RBC 2.88 L Hgb 7.8 L Hct 24.6 L MCH 27 L RDW 18.5 H Plt Count Lymph % (Auto) 7.7 L [place] % (Auto) 9.7 H [place] # 1.7 H Baso # Seg Neutrophils % 82.2 H Seg Neuts % (Manual) Lymphocytes % (Manual) Monocytes % (Manual) Seg Neutrophils # 14.2 H Seg Neutrophils # Man Lymphocytes # (Manual) Monocytes # (Manual) Eosinophils # (Manual) Basophils # (Manual) PT INR APTT ABG pH 7.475 H ABG pO2 ABG HCO3 29.4 H 32.3 H ABG O2 Saturation ABG Base Excess 5.4 H 6.9 H ABG Hemoglobin 9.0 L 10.6 L Oxyhemoglobin 94.3 L Sodium Potassium Chloride Carbon Dioxide BUN Creatinine Glucose POC Glucose Lactic Acid Calcium Ionized Calcium Phosphorus Magnesium Total Bilirubin AST ALT Alkaline Phosphatase Ammonia Total Creatine Kinase CK-MB (CK-2) CK-MB (CK-2) Rel Index Total Protein Albumin Urine WBC (Auto) Vancomycin Trough Salicylates Acetaminophen Plasma/Serum Alcohol Crossmatch 11/25/19 11/25/19 11/26/19 05:05 22:46 03:31 WBC RBC Hgb Hct MCH RDW Plt Count Lymph % (Auto) [place] % (Auto) [place] # Baso # Seg Neutrophils % Seg Neuts % (Manual) Lymphocytes % (Manual) Monocytes % (Manual) Seg Neutrophils # Seg Neutrophils # Man Lymphocytes # (Manual) Monocytes # (Manual) Eosinophils # (Manual) Basophils # (Manual) PT INR APTT ABG pH 7.459 H ABG pO2 ABG HCO3 34.2 H ABG O2 Saturation ABG Base Excess 9.4 H ABG Hemoglobin 7.6 L Oxyhemoglobin 94.8 L Sodium 152 H D 147 H Potassium 2.3 L* D 2.8 L* D Chloride 107.8 H Carbon Dioxide 31 H D 33 H BUN Creatinine 0.6 L 0.6 L Glucose 148 H 177 H POC Glucose Lactic Acid Calcium Ionized Calcium Phosphorus Magnesium Total Bilirubin AST 105 H ALT 71 H Alkaline Phosphatase 155 H Ammonia Total Creatine Kinase CK-MB (CK-2) CK-MB (CK-2) Rel Index Total Protein 5.2 L D Albumin 2.9 L Urine WBC (Auto) Vancomycin Trough Salicylates Acetaminophen Plasma/Serum Alcohol Crossmatch 11/26/19 11/26/19 11/27/19 08:24 08:24 04:20 WBC 12.0 H RBC 3.00 L Hgb 8.0 L 9.3 L Hct 25.9 L 29.7 L MCH 27 L RDW 18.5 H Plt Count Lymph % (Auto) [place] % (Auto) [place] # Baso # Seg Neutrophils % Seg Neuts % (Manual) 89.0 H Lymphocytes % (Manual) 4.0 L Monocytes % (Manual) Seg Neutrophils # Seg Neutrophils # Man 10.7 H Lymphocytes # (Manual) 0.5 L Monocytes # (Manual) Eosinophils # (Manual) Basophils # (Manual) PT INR APTT ABG pH ABG pO2 ABG HCO3 ABG O2 Saturation ABG Base Excess ABG Hemoglobin Oxyhemoglobin Sodium 146 H Potassium 3.4 L D Chloride Carbon Dioxide BUN Creatinine 0.5 L Glucose 165 H POC Glucose Lactic Acid Calcium Ionized Calcium Phosphorus Magnesium Total Bilirubin AST 57 H ALT Alkaline Phosphatase 166 H Ammonia Total Creatine Kinase CK-MB (CK-2) CK-MB (CK-2) Rel Index Total Protein Albumin 2.9 L Urine WBC (Auto) Vancomycin Trough Salicylates Acetaminophen Plasma/Serum Alcohol Crossmatch 11/27/19 11/27/19 11/27/19 04:28 04:28 04:42 WBC RBC Hgb Hct MCH RDW Plt Count Lymph % (Auto) [place] % (Auto) [place] # Baso # Seg Neutrophils % Seg Neuts % (Manual) Lymphocytes % (Manual) Monocytes % (Manual) Seg Neutrophils # Seg Neutrophils # Man Lymphocytes # (Manual) Monocytes # (Manual) Eosinophils # (Manual) Basophils # (Manual) PT INR APTT ABG pH 7.470 H ABG pO2 74.0 L ABG HCO3 33.8 H ABG O2 Saturation ABG Base Excess 9.1 H ABG Hemoglobin 8.7 L Oxyhemoglobin 94.7 L Sodium 146 H Potassium 2.9 L* Chloride Carbon Dioxide BUN 25 H Creatinine Glucose 213 H POC Glucose Lactic Acid Calcium Ionized Calcium Phosphorus 1.00 L Magnesium Total Bilirubin AST ALT Alkaline Phosphatase Ammonia Total Creatine Kinase CK-MB (CK-2) CK-MB (CK-2) Rel Index Total Protein Albumin Urine WBC (Auto) Vancomycin Trough Salicylates Acetaminophen Plasma/Serum Alcohol Crossmatch 11/27/19 11/27/19 11/27/19 05:37 12:20 15:46 WBC RBC Hgb Hct MCH RDW Plt Count Lymph % (Auto) [place] % (Auto) [place] # Baso # Seg Neutrophils % Seg Neuts % (Manual) Lymphocytes % (Manual) Monocytes % (Manual) Seg Neutrophils # Seg Neutrophils # Man Lymphocytes # (Manual) Monocytes # (Manual) Eosinophils # (Manual) Basophils # (Manual) PT INR APTT ABG pH ABG pO2 ABG HCO3 ABG O2 Saturation ABG Base Excess ABG Hemoglobin Oxyhemoglobin Sodium 146 H Potassium 3.5 L D Chloride Carbon Dioxide BUN 24 H Creatinine 0.6 L Glucose 187 H POC Glucose 117 H 220 H Lactic Acid Calcium Ionized Calcium Phosphorus Magnesium Total Bilirubin AST ALT Alkaline Phosphatase Ammonia Total Creatine Kinase CK-MB (CK-2) CK-MB (CK-2) Rel Index Total Protein Albumin Urine WBC (Auto) Vancomycin Trough Salicylates Acetaminophen Plasma/Serum Alcohol Crossmatch 11/27/19 11/28/19 11/28/19 17:28 05:00 05:02 WBC RBC Hgb Hct MCH RDW Plt Count Lymph % (Auto) [place] % (Auto) [place] # Baso # Seg Neutrophils % Seg Neuts % (Manual) Lymphocytes % (Manual) Monocytes % (Manual) Seg Neutrophils # Seg Neutrophils # Man Lymphocytes # (Manual) Monocytes # (Manual) Eosinophils # (Manual) Basophils # (Manual) PT INR APTT ABG pH ABG pO2 72.4 L ABG HCO3 33.6 H ABG O2 Saturation 94.1 L ABG Base Excess 7.3 H ABG Hemoglobin Oxyhemoglobin 91.8 L Sodium 146 H Potassium 3.3 L Chloride Carbon Dioxide BUN 25 H Creatinine 0.6 L Glucose 176 H POC Glucose 198 H Lactic Acid Calcium Ionized Calcium Phosphorus Magnesium Total Bilirubin AST ALT Alkaline Phosphatase Ammonia Total Creatine Kinase CK-MB (CK-2) CK-MB (CK-2) Rel Index Total Protein Albumin Urine WBC (Auto) Vancomycin Trough Salicylates Acetaminophen Plasma/Serum Alcohol Crossmatch 11/28/19 11/28/19 11/29/19 05:02 18:55 10:43 WBC 15.2 H 19.0 H RBC 3.06 L 3.01 L Hgb 8.3 L 8.3 L Hct 27.0 L 26.4 L MCH 27 L RDW 19.0 H 19.7 H Plt Count 479 H 611 H Lymph % (Auto) [place] % (Auto) [place] # Baso # Seg Neutrophils % Seg Neuts % (Manual) 92.0 H Lymphocytes % (Manual) 2.0 L Monocytes % (Manual) Seg Neutrophils # Seg Neutrophils # Man 14.0 H Lymphocytes # (Manual) 0.3 L Monocytes # (Manual) Eosinophils # (Manual) Basophils # (Manual) PT INR APTT ABG pH ABG pO2 ABG HCO3 ABG O2 Saturation ABG Base Excess ABG Hemoglobin Oxyhemoglobin Sodium Potassium Chloride Carbon Dioxide BUN Creatinine Glucose POC Glucose 138 H Lactic Acid Calcium Ionized Calcium Phosphorus Magnesium Total Bilirubin AST ALT Alkaline Phosphatase Ammonia Total Creatine Kinase CK-MB (CK-2) CK-MB (CK-2) Rel Index Total Protein Albumin Urine WBC (Auto) Vancomycin Trough Salicylates Acetaminophen Plasma/Serum Alcohol Crossmatch 11/29/19 11/29/19 11/29/19 10:43 12:27 19:25 WBC RBC Hgb Hct MCH RDW Plt Count Lymph % (Auto) [place] % (Auto) [place] # Baso # Seg Neutrophils % Seg Neuts % (Manual) Lymphocytes % (Manual) Monocytes % (Manual) Seg Neutrophils # Seg Neutrophils # Man Lymphocytes # (Manual) Monocytes # (Manual) Eosinophils # (Manual) Basophils # (Manual) PT INR APTT ABG pH ABG pO2 ABG HCO3 ABG O2 Saturation ABG Base Excess ABG Hemoglobin Oxyhemoglobin Sodium Potassium 2.8 L* Chloride Carbon Dioxide BUN 20 H Creatinine 0.5 L Glucose 121 H POC Glucose 128 H 120 H Lactic Acid Calcium Ionized Calcium Phosphorus Magnesium Total Bilirubin AST ALT Alkaline Phosphatase Ammonia Total Creatine Kinase CK-MB (CK-2) CK-MB (CK-2) Rel Index Total Protein Albumin Urine WBC (Auto) Vancomycin Trough Salicylates Acetaminophen Plasma/Serum Alcohol Crossmatch 11/29/19 11/30/19 11/30/19 23:46 04:10 05:02 WBC RBC Hgb Hct MCH RDW Plt Count Lymph % (Auto) [place] % (Auto) [place] # Baso # Seg Neutrophils % Seg Neuts % (Manual) Lymphocytes % (Manual) Monocytes % (Manual) Seg Neutrophils # Seg Neutrophils # Man Lymphocytes # (Manual) Monocytes # (Manual) Eosinophils # (Manual) Basophils # (Manual) PT INR APTT ABG pH ABG pO2 76.3 L ABG HCO3 32.5 H ABG O2 Saturation ABG Base Excess 6.9 H ABG Hemoglobin 8.0 L Oxyhemoglobin 92.6 L Sodium Potassium Chloride Carbon Dioxide BUN Creatinine Glucose POC Glucose 116 H 128 H Lactic Acid Calcium Ionized Calcium Phosphorus Magnesium Total Bilirubin AST ALT Alkaline Phosphatase Ammonia Total Creatine Kinase CK-MB (CK-2) CK-MB (CK-2) Rel Index Total Protein Albumin Urine WBC (Auto) Vancomycin Trough Salicylates Acetaminophen Plasma/Serum Alcohol Crossmatch 11/30/19 11/30/19 11/30/19 05:25 05:25 12:59 WBC 18.4 H RBC 3.10 L Hgb 8.5 L Hct 27.5 L MCH 27 L RDW 20.9 H Plt Count 691 H Lymph % (Auto) 7.1 L [place] % (Auto) 7.7 H [place] # 1.4 H Baso # Seg Neutrophils % 83.4 H Seg Neuts % (Manual) Lymphocytes % (Manual) Monocytes % (Manual) Seg Neutrophils # 15.4 H Seg Neutrophils # Man Lymphocytes # (Manual) Monocytes # (Manual) Eosinophils # (Manual) Basophils # (Manual) PT INR APTT ABG pH ABG pO2 ABG HCO3 ABG O2 Saturation ABG Base Excess ABG Hemoglobin Oxyhemoglobin Sodium 146 H Potassium Chloride 107.2 H Carbon Dioxide BUN Creatinine 0.5 L Glucose 132 H POC Glucose 124 H Lactic Acid Calcium Ionized Calcium Phosphorus Magnesium Total Bilirubin AST 246 H ALT 274 H Alkaline Phosphatase 203 H Ammonia Total Creatine Kinase CK-MB (CK-2) CK-MB (CK-2) Rel Index Total Protein 5.4 L Albumin 2.9 L Urine WBC (Auto) Vancomycin Trough Salicylates Acetaminophen Plasma/Serum Alcohol Crossmatch 11/30/19 12/01/19 12/01/19 17:53 00:05 05:10 WBC RBC Hgb Hct MCH RDW Plt Count Lymph % (Auto) [place] % (Auto) [place] # Baso # Seg Neutrophils % Seg Neuts % (Manual) Lymphocytes % (Manual) Monocytes % (Manual) Seg Neutrophils # Seg Neutrophils # Man Lymphocytes # (Manual) Monocytes # (Manual) Eosinophils # (Manual) Basophils # (Manual) PT INR APTT ABG pH ABG pO2 ABG HCO3 ABG O2 Saturation ABG Base Excess ABG Hemoglobin Oxyhemoglobin Sodium Potassium Chloride Carbon Dioxide BUN Creatinine Glucose POC Glucose 113 H 143 H 145 H Lactic Acid Calcium Ionized Calcium Phosphorus Magnesium Total Bilirubin AST ALT Alkaline Phosphatase Ammonia Total Creatine Kinase CK-MB (CK-2) CK-MB (CK-2) Rel Index Total Protein Albumin Urine WBC (Auto) Vancomycin Trough Salicylates Acetaminophen Plasma/Serum Alcohol Crossmatch 12/01/19 12/01/19 12/01/19 05:33 08:23 08:23 WBC 22.7 H RBC 2.88 L Hgb 7.9 L Hct 25.2 L MCH 27 L RDW 21.0 H Plt Count 732 H Lymph % (Auto) [place] % (Auto) [place] # Baso # Seg Neutrophils % Seg Neuts % (Manual) 91.0 H Lymphocytes % (Manual) 3.0 L Monocytes % (Manual) Seg Neutrophils # Seg Neutrophils # Man 20.7 H Lymphocytes # (Manual) 0.7 L Monocytes # (Manual) 1.1 H Eosinophils # (Manual) Basophils # (Manual) PT INR APTT ABG pH ABG pO2 68.6 L ABG HCO3 34.1 H ABG O2 Saturation ABG Base Excess 9.0 H ABG Hemoglobin 6.5 L Oxyhemoglobin 94.7 L Sodium Potassium Chloride Carbon Dioxide BUN Creatinine 0.5 L Glucose 125 H POC Glucose Lactic Acid Calcium Ionized Calcium Phosphorus Magnesium Total Bilirubin AST ALT Alkaline Phosphatase Ammonia Total Creatine Kinase CK-MB (CK-2) CK-MB (CK-2) Rel Index Total Protein Albumin Urine WBC (Auto) Vancomycin Trough Salicylates Acetaminophen Plasma/Serum Alcohol Crossmatch 12/01/19 12/01/19 12/01/19 13:21 17:54 20:59 WBC RBC Hgb Hct MCH RDW Plt Count Lymph % (Auto) [place] % (Auto) [place] # Baso # Seg Neutrophils % Seg Neuts % (Manual) Lymphocytes % (Manual) Monocytes % (Manual) Seg Neutrophils # Seg Neutrophils # Man Lymphocytes # (Manual) Monocytes # (Manual) Eosinophils # (Manual) Basophils # (Manual) PT INR APTT ABG pH ABG pO2 78.3 L ABG HCO3 33.8 H ABG O2 Saturation 94.9 L ABG Base Excess 7.9 H ABG Hemoglobin 11.5 L Oxyhemoglobin 92.3 L Sodium Potassium Chloride Carbon Dioxide BUN Creatinine Glucose POC Glucose 111 H 115 H Lactic Acid Calcium Ionized Calcium Phosphorus Magnesium Total Bilirubin AST ALT Alkaline Phosphatase Ammonia Total Creatine Kinase CK-MB (CK-2) CK-MB (CK-2) Rel Index Total Protein Albumin Urine WBC (Auto) Vancomycin Trough Salicylates Acetaminophen Plasma/Serum Alcohol Crossmatch 12/02/19 12/03/19 12/04/19 12:55 20:00 04:26 WBC 15.2 H RBC 2.69 L Hgb 7.4 L Hct 23.6 L MCH 27 L RDW 19.9 H Plt Count 838 H Lymph % (Auto) [place] % (Auto) [place] # Baso # Seg Neutrophils % Seg Neuts % (Manual) Lymphocytes % (Manual) Monocytes % (Manual) Seg Neutrophils # Seg Neutrophils # Man Lymphocytes # (Manual) Monocytes # (Manual) Eosinophils # (Manual) Basophils # (Manual) PT INR APTT ABG pH ABG pO2 68.3 L ABG HCO3 33.5 H ABG O2 Saturation 93.5 L ABG Base Excess 8.4 H ABG Hemoglobin 7.3 L Oxyhemoglobin 90.9 L Sodium Potassium Chloride Carbon Dioxide BUN Creatinine Glucose POC Glucose 107 H Lactic Acid Calcium Ionized Calcium Phosphorus Magnesium Total Bilirubin AST ALT Alkaline Phosphatase Ammonia Total Creatine Kinase CK-MB (CK-2) CK-MB (CK-2) Rel Index Total Protein Albumin Urine WBC (Auto) Vancomycin Trough Salicylates Acetaminophen Plasma/Serum Alcohol Crossmatch 12/04/19 12/04/19 12/04/19 04:26 07:45 12:02 WBC 15.9 H RBC 2.88 L Hgb 7.9 L Hct 25.1 L MCH RDW 20.4 H Plt Count 839 H Lymph % (Auto) 11.3 L [place] % (Auto) 15.2 H [place] # 2.4 H Baso # Seg Neutrophils % 72.4 H Seg Neuts % (Manual) Lymphocytes % (Manual) Monocytes % (Manual) Seg Neutrophils # 11.5 H Seg Neutrophils # Man Lymphocytes # (Manual) Monocytes # (Manual) Eosinophils # (Manual) Basophils # (Manual) PT INR APTT ABG pH ABG pO2 ABG HCO3 ABG O2 Saturation ABG Base Excess ABG Hemoglobin Oxyhemoglobin Sodium Potassium Chloride 96.5 L Carbon Dioxide BUN 21 H Creatinine 0.6 L Glucose 107 H POC Glucose 138 H Lactic Acid Calcium Ionized Calcium Phosphorus Magnesium Total Bilirubin AST ALT Alkaline Phosphatase Ammonia Total Creatine Kinase CK-MB (CK-2) CK-MB (CK-2) Rel Index Total Protein Albumin Urine WBC (Auto) Vancomycin Trough Salicylates Acetaminophen Plasma/Serum Alcohol Crossmatch 12/04/19 12/05/19 12/05/19 18:16 11:55 18:36 WBC RBC Hgb Hct MCH RDW Plt Count Lymph % (Auto) [place] % (Auto) [place] # Baso # Seg Neutrophils % Seg Neuts % (Manual) Lymphocytes % (Manual) Monocytes % (Manual) Seg Neutrophils # Seg Neutrophils # Man Lymphocytes # (Manual) Monocytes # (Manual) Eosinophils # (Manual) Basophils # (Manual) PT INR APTT ABG pH ABG pO2 ABG HCO3 ABG O2 Saturation ABG Base Excess ABG Hemoglobin Oxyhemoglobin Sodium Potassium Chloride Carbon Dioxide BUN Creatinine Glucose POC Glucose 135 H 125 H 135 H Lactic Acid Calcium Ionized Calcium Phosphorus Magnesium Total Bilirubin AST ALT Alkaline Phosphatase Ammonia Total Creatine Kinase CK-MB (CK-2) CK-MB (CK-2) Rel Index Total Protein Albumin Urine WBC (Auto) Vancomycin Trough Salicylates Acetaminophen Plasma/Serum Alcohol Crossmatch 12/05/19 12/06/19 12/06/19 23:30 04:14 05:43 WBC RBC Hgb Hct MCH RDW Plt Count Lymph % (Auto) [place] % (Auto) [place] # Baso # Seg Neutrophils % Seg Neuts % (Manual) Lymphocytes % (Manual) Monocytes % (Manual) Seg Neutrophils # Seg Neutrophils # Man Lymphocytes # (Manual) Monocytes # (Manual) Eosinophils # (Manual) Basophils # (Manual) PT INR APTT ABG pH ABG pO2 ABG HCO3 ABG O2 Saturation ABG Base Excess ABG Hemoglobin Oxyhemoglobin Sodium Potassium 5.6 H Chloride 95.0 L Carbon Dioxide BUN 48 H Creatinine 1.3 H D Glucose POC Glucose 126 H 121 H Lactic Acid Calcium Ionized Calcium Phosphorus Magnesium Total Bilirubin AST 89 H ALT 98 H Alkaline Phosphatase 476 H Ammonia Total Creatine Kinase CK-MB (CK-2) CK-MB (CK-2) Rel Index Total Protein Albumin 2.8 L Urine WBC (Auto) Vancomycin Trough Salicylates Acetaminophen Plasma/Serum Alcohol Crossmatch 12/06/19 12/06/1912/06/20 10:39 14:34 00:19 WBC 17.3 H RBC 2.60 L Hgb 7.1 L Hct 22.7 L MCH 27 L RDW 20.1 H Plt Count 832 H Lymph % (Auto) [place] % (Auto) [place] # Baso # Seg Neutrophils % Seg Neuts % (Manual) Lymphocytes % (Manual) Monocytes % (Manual) Seg Neutrophils # Seg Neutrophils # Man Lymphocytes # (Manual) Monocytes # (Manual) Eosinophils # (Manual) Basophils # (Manual) PT INR APTT ABG pH ABG pO2 ABG HCO3 ABG O2 Saturation ABG Base Excess ABG Hemoglobin Oxyhemoglobin Sodium Potassium Chloride Carbon Dioxide BUN Creatinine Glucose POC Glucose 128 H 136 H Lactic Acid Calcium Ionized Calcium Phosphorus Magnesium Total Bilirubin AST ALT Alkaline Phosphatase Ammonia Total Creatine Kinase CK-MB (CK-2) CK-MB (CK-2) Rel Index Total Protein Albumin Urine WBC (Auto) Vancomycin Trough Salicylates Acetaminophen Plasma/Serum Alcohol Crossmatch 12/07/19 12/07/19 12/07/19 03:44 03:44 05:53 WBC 16.2 H RBC 2.56 L Hgb 7.1 L Hct 22.3 L MCH RDW 19.4 H Plt Count 782 H Lymph % (Auto) [place] % (Auto) [place] # Baso # Seg Neutrophils % Seg Neuts % (Manual) Lymphocytes % (Manual) Monocytes % (Manual) Seg Neutrophils # Seg Neutrophils # Man Lymphocytes # (Manual) Monocytes # (Manual) Eosinophils # (Manual) Basophils # (Manual) PT INR APTT ABG pH ABG pO2 ABG HCO3 ABG O2 Saturation ABG Base Excess ABG Hemoglobin Oxyhemoglobin Sodium Potassium Chloride 95.6 L Carbon Dioxide BUN 56 H Creatinine 1.4 H Glucose 120 H POC Glucose 128 H Lactic Acid Calcium 10.3 H Ionized Calcium Phosphorus Magnesium Total Bilirubin AST ALT Alkaline Phosphatase Ammonia Total Creatine Kinase CK-MB (CK-2) CK-MB (CK-2) Rel Index Total Protein Albumin Urine WBC (Auto) Vancomycin Trough Salicylates Acetaminophen Plasma/Serum Alcohol Crossmatch 12/07/19 12/07/19 12/08/19 12:54 23:47 00:20 WBC RBC Hgb Hct MCH RDW Plt Count Lymph % (Auto) [place] % (Auto) [place] # Baso # Seg Neutrophils % Seg Neuts % (Manual) Lymphocytes % (Manual) Monocytes % (Manual) Seg Neutrophils # Seg Neutrophils # Man Lymphocytes # (Manual) Monocytes # (Manual) Eosinophils # (Manual) Basophils # (Manual) PT INR APTT ABG pH ABG pO2 ABG HCO3 ABG O2 Saturation ABG Base Excess ABG Hemoglobin Oxyhemoglobin Sodium Potassium Chloride Carbon Dioxide BUN Creatinine Glucose POC Glucose 128 H 130 H 124 H Lactic Acid Calcium Ionized Calcium Phosphorus Magnesium Total Bilirubin AST ALT Alkaline Phosphatase Ammonia Total Creatine Kinase CK-MB (CK-2) CK-MB (CK-2) Rel Index Total Protein Albumin Urine WBC (Auto) Vancomycin Trough Salicylates Acetaminophen Plasma/Serum Alcohol Crossmatch 12/08/19 12/08/19 12/08/19 06:38 12:04 18:26 WBC RBC Hgb Hct MCH RDW Plt Count Lymph % (Auto) [place] % (Auto) [place] # Baso # Seg Neutrophils % Seg Neuts % (Manual) Lymphocytes % (Manual) Monocytes % (Manual) Seg Neutrophils # Seg Neutrophils # Man Lymphocytes # (Manual) Monocytes # (Manual) Eosinophils # (Manual) Basophils # (Manual) PT INR APTT ABG pH ABG pO2 ABG HCO3 ABG O2 Saturation ABG Base Excess ABG Hemoglobin Oxyhemoglobin Sodium Potassium Chloride Carbon Dioxide BUN Creatinine Glucose POC Glucose 137 H 129 H 150 H Lactic Acid Calcium Ionized Calcium Phosphorus Magnesium Total Bilirubin AST ALT Alkaline Phosphatase Ammonia Total Creatine Kinase CK-MB (CK-2) CK-MB (CK-2) Rel Index Total Protein Albumin Urine WBC (Auto) Vancomycin Trough Salicylates Acetaminophen Plasma/Serum Alcohol Crossmatch 12/09/19 12/09/19 12/09/19 00:56 05:34 06:13 WBC RBC Hgb Hct MCH RDW Plt Count Lymph % (Auto) [place] % (Auto) [place] # Baso # Seg Neutrophils % Seg Neuts % (Manual) Lymphocytes % (Manual) Monocytes % (Manual) Seg Neutrophils # Seg Neutrophils # Man Lymphocytes # (Manual) Monocytes # (Manual) Eosinophils # (Manual) Basophils # (Manual) PT INR APTT ABG pH ABG pO2 ABG HCO3 ABG O2 Saturation ABG Base Excess ABG Hemoglobin Oxyhemoglobin Sodium 146 H Potassium Chloride Carbon Dioxide BUN 66 H Creatinine 1.9 H Glucose 116 H POC Glucose 130 H 130 H Lactic Acid Calcium Ionized Calcium Phosphorus Magnesium Total Bilirubin AST ALT Alkaline Phosphatase Ammonia Total Creatine Kinase CK-MB (CK-2) CK-MB (CK-2) Rel Index Total Protein Albumin Urine WBC (Auto) Vancomycin Trough Salicylates Acetaminophen Plasma/Serum Alcohol Crossmatch 12/09/19 12/09/19 12/10/19 11:52 17:50 00:14 WBC RBC Hgb Hct MCH RDW Plt Count Lymph % (Auto) [place] % (Auto) [place] # Baso # Seg Neutrophils % Seg Neuts % (Manual) Lymphocytes % (Manual) Monocytes % (Manual) Seg Neutrophils # Seg Neutrophils # Man Lymphocytes # (Manual) Monocytes # (Manual) Eosinophils # (Manual) Basophils # (Manual) PT INR APTT ABG pH ABG pO2 ABG HCO3 ABG O2 Saturation ABG Base Excess ABG Hemoglobin Oxyhemoglobin Sodium Potassium Chloride Carbon Dioxide BUN Creatinine Glucose POC Glucose 135 H 120 H 116 H Lactic Acid Calcium Ionized Calcium Phosphorus Magnesium Total Bilirubin AST ALT Alkaline Phosphatase Ammonia Total Creatine Kinase CK-MB (CK-2) CK-MB (CK-2) Rel Index Total Protein Albumin Urine WBC (Auto) Vancomycin Trough Salicylates Acetaminophen Plasma/Serum Alcohol Crossmatch 12/10/19 12/10/19 12/10/19 05:38 11:38 17:34 WBC RBC Hgb Hct MCH RDW Plt Count Lymph % (Auto) [place] % (Auto) [place] # Baso # Seg Neutrophils % Seg Neuts % (Manual) Lymphocytes % (Manual) Monocytes % (Manual) Seg Neutrophils # Seg Neutrophils # Man Lymphocytes # (Manual) Monocytes # (Manual) Eosinophils # (Manual) Basophils # (Manual) PT INR APTT ABG pH ABG pO2 ABG HCO3 ABG O2 Saturation ABG Base Excess ABG Hemoglobin Oxyhemoglobin Sodium Potassium Chloride Carbon Dioxide BUN Creatinine Glucose POC Glucose 115 H 112 H 130 H Lactic Acid Calcium Ionized Calcium Phosphorus Magnesium Total Bilirubin AST ALT Alkaline Phosphatase Ammonia Total Creatine Kinase CK-MB (CK-2) CK-MB (CK-2) Rel Index Total Protein Albumin Urine WBC (Auto) Vancomycin Trough Salicylates Acetaminophen Plasma/Serum Alcohol Crossmatch 12/11/19 12/11/19 12/11/19 00:20 05:31 12:22 WBC RBC Hgb Hct MCH RDW Plt Count Lymph % (Auto) [place] % (Auto) [place] # Baso # Seg Neutrophils % Seg Neuts % (Manual) Lymphocytes % (Manual) Monocytes % (Manual) Seg Neutrophils # Seg Neutrophils # Man Lymphocytes # (Manual) Monocytes # (Manual) Eosinophils # (Manual) Basophils # (Manual) PT INR APTT ABG pH ABG pO2 ABG HCO3 ABG O2 Saturation ABG Base Excess ABG Hemoglobin Oxyhemoglobin Sodium Potassium Chloride Carbon Dioxide BUN Creatinine Glucose POC Glucose 124 H 132 H 128 H Lactic Acid Calcium Ionized Calcium Phosphorus Magnesium Total Bilirubin AST ALT Alkaline Phosphatase Ammonia Total Creatine Kinase CK-MB (CK-2) CK-MB (CK-2) Rel Index Total Protein Albumin Urine WBC (Auto) Vancomycin Trough Salicylates Acetaminophen Plasma/Serum Alcohol Crossmatch 12/11/19 12/11/19 12/12/19 18:04 23:42 03:51 WBC RBC Hgb Hct MCH RDW Plt Count Lymph % (Auto) [place] % (Auto) [place] # Baso # Seg Neutrophils % Seg Neuts % (Manual) Lymphocytes % (Manual) Monocytes % (Manual) Seg Neutrophils # Seg Neutrophils # Man Lymphocytes # (Manual) Monocytes # (Manual) Eosinophils # (Manual) Basophils # (Manual) PT INR APTT ABG pH ABG pO2 ABG HCO3 ABG O2 Saturation ABG Base Excess ABG Hemoglobin Oxyhemoglobin Sodium 149 H Potassium Chloride Carbon Dioxide 20 L D BUN 77 H Creatinine 2.8 H Glucose POC Glucose 133 H 154 H Lactic Acid Calcium Ionized Calcium Phosphorus Magnesium Total Bilirubin AST ALT Alkaline Phosphatase Ammonia Total Creatine Kinase CK-MB (CK-2) CK-MB (CK-2) Rel Index Total Protein Albumin Urine WBC (Auto) Vancomycin Trough Salicylates Acetaminophen Plasma/Serum Alcohol Crossmatch 12/12/19 12/12/19 12/12/19 05:18 05:26 10:30 WBC 18.0 H RBC 2.51 L Hgb 6.8 L Hct 22.0 L MCH 27 L RDW 19.9 H Plt Count 582 H Lymph % (Auto) [place] % (Auto) [place] # Baso # Seg Neutrophils % Seg Neuts % (Manual) Lymphocytes % (Manual) Monocytes % (Manual) Seg Neutrophils # Seg Neutrophils # Man Lymphocytes # (Manual) Monocytes # (Manual) Eosinophils # (Manual) Basophils # (Manual) PT INR APTT ABG pH ABG pO2 ABG HCO3 ABG O2 Saturation ABG Base Excess ABG Hemoglobin Oxyhemoglobin Sodium Potassium Chloride Carbon Dioxide BUN Creatinine Glucose POC Glucose 135 H Lactic Acid Calcium Ionized Calcium Phosphorus Magnesium Total Bilirubin AST ALT Alkaline Phosphatase Ammonia Total Creatine Kinase CK-MB (CK-2) CK-MB (CK-2) Rel Index Total Protein Albumin Urine WBC (Auto) Vancomycin Trough Salicylates Acetaminophen Plasma/Serum Alcohol Crossmatch See Detail 12/12/19 12/12/19 12/12/19 11:44 18:10 23:21 WBC RBC Hgb Hct MCH RDW Plt Count Lymph % (Auto) [place] % (Auto) [place] # Baso # Seg Neutrophils % Seg Neuts % (Manual) Lymphocytes % (Manual) Monocytes % (Manual) Seg Neutrophils # Seg Neutrophils # Man Lymphocytes # (Manual) Monocytes # (Manual) Eosinophils # (Manual) Basophils # (Manual) PT INR APTT ABG pH ABG pO2 ABG HCO3 ABG O2 Saturation ABG Base Excess ABG Hemoglobin Oxyhemoglobin Sodium Potassium Chloride Carbon Dioxide BUN Creatinine Glucose POC Glucose 108 H 107 H 126 H Lactic Acid Calcium Ionized Calcium Phosphorus Magnesium Total Bilirubin AST ALT Alkaline Phosphatase Ammonia Total Creatine Kinase CK-MB (CK-2) CK-MB (CK-2) Rel Index Total Protein Albumin Urine WBC (Auto) Vancomycin Trough Salicylates Acetaminophen Plasma/Serum Alcohol Crossmatch 12/13/19 12/13/19 12/13/19 05:41 07:48 07:48 WBC 38.3 H RBC 2.37 L Hgb 6.3 L Hct 20.9 L MCH 27 L RDW 20.2 H Plt Count 546 H Lymph % (Auto) [place] % (Auto) [place] # Baso # Seg Neutrophils % Seg Neuts % (Manual) 93.0 H Lymphocytes % (Manual) 1.0 L Monocytes % (Manual) Seg Neutrophils # Seg Neutrophils # Man 35.6 H Lymphocytes # (Manual) 0.4 L Monocytes # (Manual) Eosinophils # (Manual) Basophils # (Manual) 0.4 H PT INR APTT ABG pH ABG pO2 ABG HCO3 ABG O2 Saturation ABG Base Excess ABG Hemoglobin Oxyhemoglobin Sodium 152 H Potassium 3.1 L D Chloride 111.9 H Carbon Dioxide 21 L BUN 53 H Creatinine 1.9 H Glucose 141 H POC Glucose 128 H Lactic Acid Calcium Ionized Calcium Phosphorus Magnesium Total Bilirubin AST ALT Alkaline Phosphatase 316 H Ammonia Total Creatine Kinase CK-MB (CK-2) CK-MB (CK-2) Rel Index Total Protein Albumin 2.4 L Urine WBC (Auto) Vancomycin Trough Salicylates Acetaminophen Plasma/Serum Alcohol Crossmatch 12/13/19 12/13/19 12/14/19 18:17 23:19 05:36 WBC RBC Hgb Hct MCH RDW Plt Count Lymph % (Auto) [place] % (Auto) [place] # Baso # Seg Neutrophils % Seg Neuts % (Manual) Lymphocytes % (Manual) Monocytes % (Manual) Seg Neutrophils # Seg Neutrophils # Man Lymphocytes # (Manual) Monocytes # (Manual) Eosinophils # (Manual) Basophils # (Manual) PT INR APTT ABG pH ABG pO2 ABG HCO3 ABG O2 Saturation ABG Base Excess ABG Hemoglobin Oxyhemoglobin Sodium Potassium Chloride Carbon Dioxide BUN Creatinine Glucose POC Glucose 141 H 158 H 182 H Lactic Acid Calcium Ionized Calcium Phosphorus Magnesium Total Bilirubin AST ALT Alkaline Phosphatase Ammonia Total Creatine Kinase CK-MB (CK-2) CK-MB (CK-2) Rel Index Total Protein Albumin Urine WBC (Auto) Vancomycin Trough Salicylates Acetaminophen Plasma/Serum Alcohol Crossmatch 12/14/19 12/14/19 12/14/19 08:48 08:48 10:31 WBC 33.3 H RBC 2.70 L Hgb 7.9 L 8.0 L Hct 25.3 L 24.0 L MCH RDW 19.2 H Plt Count 476 H Lymph % (Auto) [place] % (Auto) [place] # Baso # Seg Neutrophils % Seg Neuts % (Manual) Lymphocytes % (Manual) Monocytes % (Manual) Seg Neutrophils # Seg Neutrophils # Man Lymphocytes # (Manual) Monocytes # (Manual) Eosinophils # (Manual) Basophils # (Manual) PT INR APTT ABG pH ABG pO2 ABG HCO3 ABG O2 Saturation ABG Base Excess ABG Hemoglobin Oxyhemoglobin Sodium 153 H Potassium 2.5 L* Chloride 114.9 H Carbon Dioxide 20 L BUN 38 H Creatinine 1.4 H Glucose 177 H POC Glucose Lactic Acid Calcium Ionized Calcium Phosphorus Magnesium Total Bilirubin AST ALT Alkaline Phosphatase Ammonia Total Creatine Kinase CK-MB (CK-2) CK-MB (CK-2) Rel Index Total Protein Albumin Urine WBC (Auto) Vancomycin Trough Salicylates Acetaminophen Plasma/Serum Alcohol Crossmatch 12/14/19 12/14/19 12/14/19 12:57 16:15 17:50 WBC RBC Hgb Hct MCH RDW Plt Count Lymph % (Auto) [place] % (Auto) [place] # Baso # Seg Neutrophils % Seg Neuts % (Manual) Lymphocytes % (Manual) Monocytes % (Manual) Seg Neutrophils # Seg Neutrophils # Man Lymphocytes # (Manual) Monocytes # (Manual) Eosinophils # (Manual) Basophils # (Manual) PT INR APTT ABG pH ABG pO2 73.6 L ABG HCO3 ABG O2 Saturation ABG Base Excess ABG Hemoglobin 7.6 L Oxyhemoglobin 94.0 L Sodium Potassium Chloride Carbon Dioxide BUN Creatinine Glucose POC Glucose 174 H 150 H Lactic Acid Calcium Ionized Calcium Phosphorus Magnesium Total Bilirubin AST ALT Alkaline Phosphatase Ammonia Total Creatine Kinase CK-MB (CK-2) CK-MB (CK-2) Rel Index Total Protein Albumin Urine WBC (Auto) Vancomycin Trough Salicylates Acetaminophen Plasma/Serum Alcohol Crossmatch 12/15/19 12/15/19 12/15/19 00:28 05:27 07:23 WBC 30.0 H RBC 3.11 L Hgb 8.6 L Hct 27.7 L MCH RDW 20.0 H Plt Count 473 H Lymph % (Auto) [place] % (Auto) [place] # Baso # Seg Neutrophils % Seg Neuts % (Manual) Lymphocytes % (Manual) Monocytes % (Manual) Seg Neutrophils # Seg Neutrophils # Man Lymphocytes # (Manual) Monocytes # (Manual) Eosinophils # (Manual) Basophils # (Manual) PT INR APTT ABG pH ABG pO2 ABG HCO3 ABG O2 Saturation ABG Base Excess ABG Hemoglobin Oxyhemoglobin Sodium Potassium Chloride Carbon Dioxide BUN Creatinine Glucose POC Glucose 167 H 148 H Lactic Acid Calcium Ionized Calcium Phosphorus Magnesium Total Bilirubin AST ALT Alkaline Phosphatase Ammonia Total Creatine Kinase CK-MB (CK-2) CK-MB (CK-2) Rel Index Total Protein Albumin Urine WBC (Auto) Vancomycin Trough Salicylates Acetaminophen Plasma/Serum Alcohol Crossmatch 12/15/19 12/15/19 12/15/19 07:23 12:21 17:41 WBC RBC Hgb Hct MCH RDW Plt Count Lymph % (Auto) [place] % (Auto) [place] # Baso # Seg Neutrophils % Seg Neuts % (Manual) Lymphocytes % (Manual) Monocytes % (Manual) Seg Neutrophils # Seg Neutrophils # Man Lymphocytes # (Manual) Monocytes # (Manual) Eosinophils # (Manual) Basophils # (Manual) PT INR APTT ABG pH ABG pO2 ABG HCO3 ABG O2 Saturation ABG Base Excess ABG Hemoglobin Oxyhemoglobin Sodium 147 H Potassium 3.5 L D Chloride 111.2 H Carbon Dioxide 19 L BUN 29 H Creatinine Glucose 126 H POC Glucose 154 H 144 H Lactic Acid Calcium Ionized Calcium Phosphorus Magnesium Total Bilirubin AST ALT Alkaline Phosphatase Ammonia Total Creatine Kinase CK-MB (CK-2) CK-MB (CK-2) Rel Index Total Protein Albumin Urine WBC (Auto) Vancomycin Trough Salicylates Acetaminophen Plasma/Serum Alcohol Crossmatch 12/16/19 12/16/19 12/16/19 00:22 05:30 05:44 WBC 30.8 H RBC 2.58 L Hgb 7.1 L Hct 22.7 L MCH RDW 19.6 H Plt Count 451 H Lymph % (Auto) [place] % (Auto) [place] # Baso # Seg Neutrophils % Seg Neuts % (Manual) Lymphocytes % (Manual) Monocytes % (Manual) Seg Neutrophils # Seg Neutrophils # Man Lymphocytes # (Manual) Monocytes # (Manual) Eosinophils # (Manual) Basophils # (Manual) PT INR APTT ABG pH ABG pO2 ABG HCO3 ABG O2 Saturation ABG Base Excess ABG Hemoglobin Oxyhemoglobin Sodium Potassium Chloride Carbon Dioxide BUN Creatinine Glucose POC Glucose 139 H 126 H Lactic Acid Calcium Ionized Calcium Phosphorus Magnesium Total Bilirubin AST ALT Alkaline Phosphatase Ammonia Total Creatine Kinase CK-MB (CK-2) CK-MB (CK-2) Rel Index Total Protein Albumin Urine WBC (Auto) Vancomycin Trough Salicylates Acetaminophen Plasma/Serum Alcohol Crossmatch 12/16/19 12/16/19 12/16/19 05:44 11:48 17:37 WBC RBC Hgb Hct MCH RDW Plt Count Lymph % (Auto) [place] % (Auto) [place] # Baso # Seg Neutrophils % Seg Neuts % (Manual) Lymphocytes % (Manual) Monocytes % (Manual) Seg Neutrophils # Seg Neutrophils # Man Lymphocytes # (Manual) Monocytes # (Manual) Eosinophils # (Manual) Basophils # (Manual) PT INR APTT ABG pH ABG pO2 ABG HCO3 ABG O2 Saturation ABG Base Excess ABG Hemoglobin Oxyhemoglobin Sodium Potassium 3.4 L Chloride 109.2 H Carbon Dioxide 19 L BUN 27 H Creatinine Glucose 124 H POC Glucose 125 H 148 H Lactic Acid Calcium Ionized Calcium Phosphorus Magnesium Total Bilirubin AST ALT Alkaline Phosphatase Ammonia Total Creatine Kinase CK-MB (CK-2) CK-MB (CK-2) Rel Index Total Protein Albumin Urine WBC (Auto) Vancomycin Trough Salicylates Acetaminophen Plasma/Serum Alcohol Crossmatch 12/16/19 12/17/19 12/17/19 23:43 05:28 12:47 WBC RBC Hgb Hct MCH RDW Plt Count Lymph % (Auto) [place] % (Auto) [place] # Baso # Seg Neutrophils % Seg Neuts % (Manual) Lymphocytes % (Manual) Monocytes % (Manual) Seg Neutrophils # Seg Neutrophils # Man Lymphocytes # (Manual) Monocytes # (Manual) Eosinophils # (Manual) Basophils # (Manual) PT INR APTT ABG pH ABG pO2 ABG HCO3 ABG O2 Saturation ABG Base Excess ABG Hemoglobin Oxyhemoglobin Sodium Potassium Chloride Carbon Dioxide BUN Creatinine Glucose POC Glucose 142 H 140 H 125 H Lactic Acid Calcium Ionized Calcium Phosphorus Magnesium Total Bilirubin AST ALT Alkaline Phosphatase Ammonia Total Creatine Kinase CK-MB (CK-2) CK-MB (CK-2) Rel Index Total Protein Albumin Urine WBC (Auto) Vancomycin Trough Salicylates Acetaminophen Plasma/Serum Alcohol Crossmatch 12/17/19 12/17/19 12/17/19 17:05 18:00 Unknown WBC RBC Hgb Hct MCH RDW Plt Count Lymph % (Auto) [place] % (Auto) [place] # Baso # Seg Neutrophils % Seg Neuts % (Manual) Lymphocytes % (Manual) Monocytes % (Manual) Seg Neutrophils # Seg Neutrophils # Man Lymphocytes # (Manual) Monocytes # (Manual) Eosinophils # (Manual) Basophils # (Manual) PT INR APTT ABG pH ABG pO2 68.1 L ABG HCO3 ABG O2 Saturation 93.7 L ABG Base Excess ABG Hemoglobin 5.0 L Oxyhemoglobin 91.7 L Sodium Potassium Chloride Carbon Dioxide BUN Creatinine Glucose POC Glucose 140 H Lactic Acid Calcium Ionized Calcium Phosphorus Magnesium Total Bilirubin AST ALT Alkaline Phosphatase Ammonia Total Creatine Kinase CK-MB (CK-2) CK-MB (CK-2) Rel Index Total Protein Albumin Urine WBC (Auto) Vancomycin Trough Salicylates Acetaminophen Plasma/Serum Alcohol Crossmatch 12/18/19 12/18/19 12/18/19 00:16 04:53 04:53 WBC 28.6 H RBC 2.27 L Hgb 6.3 L Hct 19.5 L* MCH RDW 20.0 H Plt Count 497 H Lymph % (Auto) [place] % (Auto) [place] # Baso # Seg Neutrophils % Seg Neuts % (Manual) Lymphocytes % (Manual) Monocytes % (Manual) Seg Neutrophils # Seg Neutrophils # Man Lymphocytes # (Manual) Monocytes # (Manual) Eosinophils # (Manual) Basophils # (Manual) PT INR APTT ABG pH ABG pO2 ABG HCO3 ABG O2 Saturation ABG Base Excess ABG Hemoglobin Oxyhemoglobin Sodium Potassium Chloride 107.9 H Carbon Dioxide 20 L BUN 27 H Creatinine 0.6 L Glucose 116 H POC Glucose 123 H Lactic Acid Calcium Ionized Calcium Phosphorus Magnesium Total Bilirubin AST ALT Alkaline Phosphatase Ammonia Total Creatine Kinase CK-MB (CK-2) CK-MB (CK-2) Rel Index Total Protein Albumin Urine WBC (Auto) Vancomycin Trough Salicylates Acetaminophen Plasma/Serum Alcohol Crossmatch 12/18/19 12/18/19 12/18/19 06:38 11:22 12:08 WBC RBC Hgb Hct MCH RDW Plt Count Lymph % (Auto) [place] % (Auto) [place] # Baso # Seg Neutrophils % Seg Neuts % (Manual) Lymphocytes % (Manual) Monocytes % (Manual) Seg Neutrophils # Seg Neutrophils # Man Lymphocytes # (Manual) Monocytes # (Manual) Eosinophils # (Manual) Basophils # (Manual) PT INR APTT ABG pH ABG pO2 ABG HCO3 ABG O2 Saturation ABG Base Excess ABG Hemoglobin Oxyhemoglobin Sodium Potassium Chloride Carbon Dioxide BUN Creatinine Glucose POC Glucose 120 H 127 H Lactic Acid Calcium Ionized Calcium Phosphorus Magnesium Total Bilirubin AST ALT Alkaline Phosphatase Ammonia Total Creatine Kinase CK-MB (CK-2) CK-MB (CK-2) Rel Index Total Protein Albumin Urine WBC (Auto) Vancomycin Trough Salicylates Acetaminophen Plasma/Serum Alcohol Crossmatch See Detail 12/18/19 12/18/19 12/18/19 14:05 17:49 23:53 WBC RBC Hgb Hct MCH RDW Plt Count Lymph % (Auto) [place] % (Auto) [place] # Baso # Seg Neutrophils % Seg Neuts % (Manual) Lymphocytes % (Manual) Monocytes % (Manual) Seg Neutrophils # Seg Neutrophils # Man Lymphocytes # (Manual) Monocytes # (Manual) Eosinophils # (Manual) Basophils # (Manual) PT INR APTT ABG pH 7.267 L ABG pO2 69.8 L ABG HCO3 ABG O2 Saturation 88.4 L ABG Base Excess ABG Hemoglobin 7.1 L Oxyhemoglobin 86.4 L Sodium Potassium Chloride Carbon Dioxide BUN Creatinine Glucose POC Glucose 157 H 128 H Lactic Acid Calcium Ionized Calcium Phosphorus Magnesium Total Bilirubin AST ALT Alkaline Phosphatase Ammonia Total Creatine Kinase CK-MB (CK-2) CK-MB (CK-2) Rel Index Total Protein Albumin Urine WBC (Auto) Vancomycin Trough Salicylates Acetaminophen Plasma/Serum Alcohol Crossmatch 12/19/19 12/19/19 12/19/19 03:37 03:37 05:25 WBC 31.3 H RBC 2.60 L Hgb 7.6 L Hct 23.0 L MCH RDW 19.4 H Plt Count 530 H Lymph % (Auto) [place] % (Auto) [place] # Baso # Seg Neutrophils % Seg Neuts % (Manual) Lymphocytes % (Manual) Monocytes % (Manual) Seg Neutrophils # Seg Neutrophils # Man Lymphocytes # (Manual) Monocytes # (Manual) Eosinophils # (Manual) Basophils # (Manual) PT INR APTT ABG pH ABG pO2 ABG HCO3 ABG O2 Saturation ABG Base Excess ABG Hemoglobin Oxyhemoglobin Sodium Potassium Chloride Carbon Dioxide 18 L BUN 36 H Creatinine Glucose 111 H POC Glucose 123 H Lactic Acid Calcium Ionized Calcium Phosphorus Magnesium Total Bilirubin AST ALT Alkaline Phosphatase Ammonia Total Creatine Kinase CK-MB (CK-2) CK-MB (CK-2) Rel Index Total Protein Albumin Urine WBC (Auto) Vancomycin Trough Salicylates Acetaminophen Plasma/Serum Alcohol Crossmatch 12/19/19 12/19/19 12/20/19 12:59 18:33 00:00 WBC RBC Hgb Hct MCH RDW Plt Count Lymph % (Auto) [place] % (Auto) [place] # Baso # Seg Neutrophils % Seg Neuts % (Manual) Lymphocytes % (Manual) Monocytes % (Manual) Seg Neutrophils # Seg Neutrophils # Man Lymphocytes # (Manual) Monocytes # (Manual) Eosinophils # (Manual) Basophils # (Manual) PT INR APTT ABG pH ABG pO2 ABG HCO3 ABG O2 Saturation ABG Base Excess ABG Hemoglobin Oxyhemoglobin Sodium Potassium Chloride Carbon Dioxide BUN Creatinine Glucose POC Glucose 130 H 118 H 135 H Lactic Acid Calcium Ionized Calcium Phosphorus Magnesium Total Bilirubin AST ALT Alkaline Phosphatase Ammonia Total Creatine Kinase CK-MB (CK-2) CK-MB (CK-2) Rel Index Total Protein Albumin Urine WBC (Auto) Vancomycin Trough Salicylates Acetaminophen Plasma/Serum Alcohol Crossmatch 12/20/19 12/20/19 12/20/19 05:46 12:31 18:07 WBC RBC Hgb Hct MCH RDW Plt Count Lymph % (Auto) [place] % (Auto) [place] # Baso # Seg Neutrophils % Seg Neuts % (Manual) Lymphocytes % (Manual) Monocytes % (Manual) Seg Neutrophils # Seg Neutrophils # Man Lymphocytes # (Manual) Monocytes # (Manual) Eosinophils # (Manual) Basophils # (Manual) PT INR APTT ABG pH ABG pO2 ABG HCO3 ABG O2 Saturation ABG Base Excess ABG Hemoglobin Oxyhemoglobin Sodium Potassium Chloride Carbon Dioxide BUN Creatinine Glucose POC Glucose 131 H 128 H 134 H Lactic Acid Calcium Ionized Calcium Phosphorus Magnesium Total Bilirubin AST ALT Alkaline Phosphatase Ammonia Total Creatine Kinase CK-MB (CK-2) CK-MB (CK-2) Rel Index Total Protein Albumin Urine WBC (Auto) Vancomycin Trough Salicylates Acetaminophen Plasma/Serum Alcohol Crossmatch 12/21/19 12/21/19 12/21/19 03:28 03:28 07:21 WBC 29.4 H RBC 2.30 L Hgb 6.8 L Hct 20.2 L MCH RDW 20.2 H Plt Count 746 H Lymph % (Auto) [place] % (Auto) [place] # Baso # Seg Neutrophils % Seg Neuts % (Manual) 85.0 H Lymphocytes % (Manual) 8.0 L Monocytes % (Manual) Seg Neutrophils # Seg Neutrophils # Man 25.0 H Lymphocytes # (Manual) Monocytes # (Manual) 1.5 H Eosinophils # (Manual) 0.6 H Basophils # (Manual) PT INR APTT ABG pH ABG pO2 ABG HCO3 ABG O2 Saturation ABG Base Excess ABG Hemoglobin Oxyhemoglobin Sodium Potassium Chloride Carbon Dioxide 17 L BUN 57 H Creatinine 1.4 H D Glucose POC Glucose 124 H Lactic Acid Calcium Ionized Calcium Phosphorus Magnesium Total Bilirubin AST ALT Alkaline Phosphatase Ammonia Total Creatine Kinase CK-MB (CK-2) CK-MB (CK-2) Rel Index Total Protein Albumin Urine WBC (Auto) Vancomycin Trough Salicylates Acetaminophen Plasma/Serum Alcohol Crossmatch 12/21/19 12/21/19 12/21/19 08:56 12:06 14:53 WBC RBC Hgb 7.2 L Hct 22.9 L MCH RDW Plt Count Lymph % (Auto) [place] % (Auto) [place] # Baso # Seg Neutrophils % Seg Neuts % (Manual) Lymphocytes % (Manual) Monocytes % (Manual) Seg Neutrophils # Seg Neutrophils # Man Lymphocytes # (Manual) Monocytes # (Manual) Eosinophils # (Manual) Basophils # (Manual) PT INR APTT ABG pH ABG pO2 ABG HCO3 ABG O2 Saturation ABG Base Excess ABG Hemoglobin Oxyhemoglobin Sodium Potassium Chloride Carbon Dioxide BUN Creatinine Glucose POC Glucose 116 H Lactic Acid Calcium Ionized Calcium Phosphorus Magnesium Total Bilirubin AST ALT Alkaline Phosphatase Ammonia Total Creatine Kinase CK-MB (CK-2) CK-MB (CK-2) Rel Index Total Protein Albumin Urine WBC (Auto) Vancomycin Trough 33.8 H Salicylates Acetaminophen Plasma/Serum Alcohol Crossmatch 12/21/19 12/21/19 12/21/19 14:54 17:27 23:49 WBC RBC Hgb Hct MCH RDW Plt Count Lymph % (Auto) [place] % (Auto) [place] # Baso # Seg Neutrophils % Seg Neuts % (Manual) Lymphocytes % (Manual) Monocytes % (Manual) Seg Neutrophils # Seg Neutrophils # Man Lymphocytes # (Manual) Monocytes # (Manual) Eosinophils # (Manual) Basophils # (Manual) PT INR APTT ABG pH ABG pO2 ABG HCO3 ABG O2 Saturation ABG Base Excess ABG Hemoglobin Oxyhemoglobin Sodium Potassium Chloride Carbon Dioxide BUN Creatinine Glucose POC Glucose 145 H 127 H Lactic Acid Calcium Ionized Calcium Phosphorus Magnesium Total Bilirubin AST ALT Alkaline Phosphatase Ammonia Total Creatine Kinase CK-MB (CK-2) CK-MB (CK-2) Rel Index Total Protein Albumin Urine WBC (Auto) Vancomycin Trough Salicylates Acetaminophen Plasma/Serum Alcohol Crossmatch See Detail 12/22/19 12/22/19 12/22/19 04:43 05:56 08:40 WBC RBC Hgb Hct MCH RDW Plt Count Lymph % (Auto) [place] % (Auto) [place] # Baso # Seg Neutrophils % Seg Neuts % (Manual) Lymphocytes % (Manual) Monocytes % (Manual) Seg Neutrophils # Seg Neutrophils # Man Lymphocytes # (Manual) Monocytes # (Manual) Eosinophils # (Manual) Basophils # (Manual) PT INR APTT ABG pH ABG pO2 75.6 L ABG HCO3 ABG O2 Saturation ABG Base Excess -2.6 L ABG Hemoglobin 6.8 L Oxyhemoglobin 94.6 L Sodium Potassium Chloride Carbon Dioxide 17 L BUN 60 H Creatinine 1.4 H Glucose 126 H POC Glucose 153 H Lactic Acid Calcium Ionized Calcium Phosphorus Magnesium Total Bilirubin AST ALT Alkaline Phosphatase Ammonia Total Creatine Kinase CK-MB (CK-2) CK-MB (CK-2) Rel Index Total Protein Albumin Urine WBC (Auto) Vancomycin Trough Salicylates Acetaminophen Plasma/Serum Alcohol Crossmatch 12/22/19 12/22/19 12/23/19 12:07 17:49 04:30 WBC 22.4 H RBC 2.68 L Hgb 7.6 L Hct 22.9 L MCH RDW 19.9 H Plt Count 998 H Lymph % (Auto) [place] % (Auto) [place] # Baso # Seg Neutrophils % Seg Neuts % (Manual) 88.0 H Lymphocytes % (Manual) 2.0 L Monocytes % (Manual) 9.0 H Seg Neutrophils # Seg Neutrophils # Man 19.7 H Lymphocytes # (Manual) 0.4 L Monocytes # (Manual) 2.0 H Eosinophils # (Manual) Basophils # (Manual) PT INR APTT ABG pH ABG pO2 ABG HCO3 ABG O2 Saturation ABG Base Excess ABG Hemoglobin Oxyhemoglobin Sodium Potassium Chloride Carbon Dioxide BUN Creatinine Glucose POC Glucose 140 H 116 H Lactic Acid Calcium Ionized Calcium Phosphorus Magnesium Total Bilirubin AST ALT Alkaline Phosphatase Ammonia Total Creatine Kinase CK-MB (CK-2) CK-MB (CK-2) Rel Index Total Protein Albumin Urine WBC (Auto) Vancomycin Trough Salicylates Acetaminophen Plasma/Serum Alcohol Crossmatch 12/23/19 12/23/19 12/23/19 04:30 12:00 18:06 WBC RBC Hgb Hct MCH RDW Plt Count Lymph % (Auto) [place] % (Auto) [place] # Baso # Seg Neutrophils % Seg Neuts % (Manual) Lymphocytes % (Manual) Monocytes % (Manual) Seg Neutrophils # Seg Neutrophils # Man Lymphocytes # (Manual) Monocytes # (Manual) Eosinophils # (Manual) Basophils # (Manual) PT INR APTT ABG pH ABG pO2 ABG HCO3 ABG O2 Saturation ABG Base Excess ABG Hemoglobin Oxyhemoglobin Sodium Potassium 5.2 H Chloride Carbon Dioxide 21 L BUN 69 H Creatinine 1.5 H Glucose 117 H POC Glucose 128 H 138 H Lactic Acid Calcium Ionized Calcium Phosphorus Magnesium Total Bilirubin AST ALT Alkaline Phosphatase Ammonia Total Creatine Kinase CK-MB (CK-2) CK-MB (CK-2) Rel Index Total Protein Albumin Urine WBC (Auto) Vancomycin Trough Salicylates Acetaminophen Plasma/Serum Alcohol Crossmatch 12/23/19 12/24/19 12/24/19 23:46 04:31 05:08 WBC RBC Hgb Hct MCH RDW Plt Count Lymph % (Auto) [place] % (Auto) [place] # Baso # Seg Neutrophils % Seg Neuts % (Manual) Lymphocytes % (Manual) Monocytes % (Manual) Seg Neutrophils # Seg Neutrophils # Man Lymphocytes # (Manual) Monocytes # (Manual) Eosinophils # (Manual) Basophils # (Manual) PT INR APTT ABG pH ABG pO2 ABG HCO3 ABG O2 Saturation ABG Base Excess ABG Hemoglobin Oxyhemoglobin Sodium Potassium 5.3 H Chloride 107.6 H Carbon Dioxide 20 L BUN 72 H Creatinine 1.6 H Glucose 120 H POC Glucose 120 H 140 H Lactic Acid Calcium Ionized Calcium Phosphorus Magnesium Total Bilirubin AST ALT Alkaline Phosphatase Ammonia Total Creatine Kinase CK-MB (CK-2) CK-MB (CK-2) Rel Index Total Protein Albumin Urine WBC (Auto) Vancomycin Trough Salicylates Acetaminophen Plasma/Serum Alcohol Crossmatch 12/24/19 12/24/19 12/25/19 11:58 17:49 03:47 WBC 36.2 H RBC 2.92 L Hgb 8.4 L Hct 26.1 L MCH RDW 20.2 H Plt Count 942 H Lymph % (Auto) [place] % (Auto) [place] # Baso # Seg Neutrophils % Seg Neuts % (Manual) 97.5 H Lymphocytes % (Manual) 1.0 L Monocytes % (Manual) Seg Neutrophils # Seg Neutrophils # Man 35.3 H Lymphocytes # (Manual) 0.4 L Monocytes # (Manual) Eosinophils # (Manual) Basophils # (Manual) PT INR APTT ABG pH ABG pO2 ABG HCO3 ABG O2 Saturation ABG Base Excess ABG Hemoglobin Oxyhemoglobin Sodium Potassium Chloride Carbon Dioxide BUN Creatinine Glucose POC Glucose 146 H 131 H Lactic Acid Calcium Ionized Calcium Phosphorus Magnesium Total Bilirubin AST ALT Alkaline Phosphatase Ammonia Total Creatine Kinase CK-MB (CK-2) CK-MB (CK-2) Rel Index Total Protein Albumin Urine WBC (Auto) Vancomycin Trough Salicylates Acetaminophen Plasma/Serum Alcohol Crossmatch 12/25/19 12/25/19 12/25/19 03:47 05:30 12:23 WBC RBC Hgb Hct MCH RDW Plt Count Lymph % (Auto) [place] % (Auto) [place] # Baso # Seg Neutrophils % Seg Neuts % (Manual) Lymphocytes % (Manual) Monocytes % (Manual) Seg Neutrophils # Seg Neutrophils # Man Lymphocytes # (Manual) Monocytes # (Manual) Eosinophils # (Manual) Basophils # (Manual) PT INR APTT ABG pH ABG pO2 ABG HCO3 ABG O2 Saturation ABG Base Excess ABG Hemoglobin Oxyhemoglobin Sodium Potassium Chloride Carbon Dioxide 15 L BUN 70 H Creatinine 1.7 H Glucose 153 H POC Glucose 169 H 135 H Lactic Acid Calcium Ionized Calcium Phosphorus Magnesium Total Bilirubin AST ALT Alkaline Phosphatase Ammonia Total Creatine Kinase CK-MB (CK-2) CK-MB (CK-2) Rel Index Total Protein Albumin Urine WBC (Auto) Vancomycin Trough Salicylates Acetaminophen Plasma/Serum Alcohol Crossmatch 12/25/19 12/25/19 12/26/19 17:37 23:29 09:47 WBC 22.1 H RBC 2.83 L Hgb 7.9 L Hct 25.5 L MCH RDW 20.0 H Plt Count 894 H Lymph % (Auto) [place] % (Auto) [place] # Baso # Seg Neutrophils % Seg Neuts % (Manual) Lymphocytes % (Manual) Monocytes % (Manual) Seg Neutrophils # Seg Neutrophils # Man Lymphocytes # (Manual) Monocytes # (Manual) Eosinophils # (Manual) Basophils # (Manual) PT INR APTT ABG pH ABG pO2 ABG HCO3 ABG O2 Saturation ABG Base Excess ABG Hemoglobin Oxyhemoglobin Sodium Potassium Chloride Carbon Dioxide BUN Creatinine Glucose POC Glucose 120 H 140 H Lactic Acid Calcium Ionized Calcium Phosphorus Magnesium Total Bilirubin AST ALT Alkaline Phosphatase Ammonia Total Creatine Kinase CK-MB (CK-2) CK-MB (CK-2) Rel Index Total Protein Albumin Urine WBC (Auto) Vancomycin Trough Salicylates Acetaminophen Plasma/Serum Alcohol Crossmatch 12/26/19 12/26/19 12/26/19 09:47 11:46 17:52 WBC RBC Hgb Hct MCH RDW Plt Count Lymph % (Auto) [place] % (Auto) [place] # Baso # Seg Neutrophils % Seg Neuts % (Manual) Lymphocytes % (Manual) Monocytes % (Manual) Seg Neutrophils # Seg Neutrophils # Man Lymphocytes # (Manual) Monocytes # (Manual) Eosinophils # (Manual) Basophils # (Manual) PT INR APTT ABG pH ABG pO2 ABG HCO3 ABG O2 Saturation ABG Base Excess ABG Hemoglobin Oxyhemoglobin Sodium Potassium Chloride Carbon Dioxide 18 L BUN 65 H Creatinine 1.4 H Glucose 132 H POC Glucose 110 H 145 H Lactic Acid Calcium Ionized Calcium Phosphorus Magnesium Total Bilirubin AST ALT Alkaline Phosphatase Ammonia Total Creatine Kinase CK-MB (CK-2) CK-MB (CK-2) Rel Index Total Protein Albumin Urine WBC (Auto) Vancomycin Trough Salicylates Acetaminophen Plasma/Serum Alcohol Crossmatch 12/27/19 12/27/19 12/27/19 00:01 03:42 03:42 WBC 18.0 H RBC 2.86 L Hgb 8.0 L Hct 25.2 L MCH RDW 19.2 H Plt Count 873 H Lymph % (Auto) 8.4 L [place] % (Auto) 7.5 H [place] # 1.4 H Baso # 0.2 H Seg Neutrophils % 82.2 H Seg Neuts % (Manual) Lymphocytes % (Manual) Monocytes % (Manual) Seg Neutrophils # 14.8 H Seg Neutrophils # Man Lymphocytes # (Manual) Monocytes # (Manual) Eosinophils # (Manual) Basophils # (Manual) PT INR APTT ABG pH ABG pO2 ABG HCO3 ABG O2 Saturation ABG Base Excess ABG Hemoglobin Oxyhemoglobin Sodium Potassium Chloride Carbon Dioxide BUN 73 H Creatinine 1.4 H Glucose 119 H POC Glucose 124 H Lactic Acid Calcium Ionized Calcium Phosphorus Magnesium Total Bilirubin AST ALT Alkaline Phosphatase Ammonia Total Creatine Kinase CK-MB (CK-2) CK-MB (CK-2) Rel Index Total Protein Albumin Urine WBC (Auto) Vancomycin Trough Salicylates Acetaminophen Plasma/Serum Alcohol Crossmatch 12/27/19 12/27/19 12/27/19 05:45 11:45 17:29 WBC RBC Hgb Hct MCH RDW Plt Count Lymph % (Auto) [place] % (Auto) [place] # Baso # Seg Neutrophils % Seg Neuts % (Manual) Lymphocytes % (Manual) Monocytes % (Manual) Seg Neutrophils # Seg Neutrophils # Man Lymphocytes # (Manual) Monocytes # (Manual) Eosinophils # (Manual) Basophils # (Manual) PT INR APTT ABG pH ABG pO2 ABG HCO3 ABG O2 Saturation ABG Base Excess ABG Hemoglobin Oxyhemoglobin Sodium Potassium Chloride Carbon Dioxide BUN Creatinine Glucose POC Glucose 131 H 123 H 134 H Lactic Acid Calcium Ionized Calcium Phosphorus Magnesium Total Bilirubin AST ALT Alkaline Phosphatase Ammonia Total Creatine Kinase CK-MB (CK-2) CK-MB (CK-2) Rel Index Total Protein Albumin Urine WBC (Auto) Vancomycin Trough Salicylates Acetaminophen Plasma/Serum Alcohol Crossmatch 12/28/19 12/28/19 12/28/19 00:12 05:14 11:53 WBC RBC Hgb Hct MCH RDW Plt Count Lymph % (Auto) [place] % (Auto) [place] # Baso # Seg Neutrophils % Seg Neuts % (Manual) Lymphocytes % (Manual) Monocytes % (Manual) Seg Neutrophils # Seg Neutrophils # Man Lymphocytes # (Manual) Monocytes # (Manual) Eosinophils # (Manual) Basophils # (Manual) PT INR APTT ABG pH ABG pO2 ABG HCO3 ABG O2 Saturation ABG Base Excess ABG Hemoglobin Oxyhemoglobin Sodium Potassium Chloride Carbon Dioxide BUN Creatinine Glucose POC Glucose 138 H 130 H 146 H Lactic Acid Calcium Ionized Calcium Phosphorus Magnesium Total Bilirubin AST ALT Alkaline Phosphatase Ammonia Total Creatine Kinase CK-MB (CK-2) CK-MB (CK-2) Rel Index Total Protein Albumin Urine WBC (Auto) Vancomycin Trough Salicylates Acetaminophen Plasma/Serum Alcohol Crossmatch 12/28/19 12/29/19 12/29/19 17:39 00:01 18:11 WBC RBC Hgb Hct MCH RDW Plt Count Lymph % (Auto) [place] % (Auto) [place] # Baso # Seg Neutrophils % Seg Neuts % (Manual) Lymphocytes % (Manual) Monocytes % (Manual) Seg Neutrophils # Seg Neutrophils # Man Lymphocytes # (Manual) Monocytes # (Manual) Eosinophils # (Manual) Basophils # (Manual) PT INR APTT ABG pH ABG pO2 ABG HCO3 ABG O2 Saturation ABG Base Excess ABG Hemoglobin Oxyhemoglobin Sodium Potassium Chloride Carbon Dioxide BUN Creatinine Glucose POC Glucose 117 H 139 H 130 H Lactic Acid Calcium Ionized Calcium Phosphorus Magnesium Total Bilirubin AST ALT Alkaline Phosphatase Ammonia Total Creatine Kinase CK-MB (CK-2) CK-MB (CK-2) Rel Index Total Protein Albumin Urine WBC (Auto) Vancomycin Trough Salicylates Acetaminophen Plasma/Serum Alcohol Crossmatch 12/29/19 12/30/19 12/30/19 23:09 00:02 01:06 WBC 16.7 H RBC 2.91 L Hgb 8.2 L Hct 25.4 L MCH RDW 18.7 H Plt Count 708 H Lymph % (Auto) 9.4 L [place] % (Auto) [place] # 0.9 H Baso # Seg Neutrophils % 83.5 H Seg Neuts % (Manual) Lymphocytes % (Manual) Monocytes % (Manual) Seg Neutrophils # 14.0 H Seg Neutrophils # Man Lymphocytes # (Manual) Monocytes # (Manual) Eosinophils # (Manual) Basophils # (Manual) PT INR APTT ABG pH ABG pO2 ABG HCO3 ABG O2 Saturation ABG Base Excess ABG Hemoglobin Oxyhemoglobin Sodium Potassium Chloride Carbon Dioxide BUN Creatinine Glucose POC Glucose 120 H 114 H Lactic Acid Calcium Ionized Calcium Phosphorus Magnesium Total Bilirubin AST ALT Alkaline Phosphatase Ammonia Total Creatine Kinase CK-MB (CK-2) CK-MB (CK-2) Rel Index Total Protein Albumin Urine WBC (Auto) Vancomycin Trough Salicylates Acetaminophen Plasma/Serum Alcohol Crossmatch 12/30/19 12/30/19 12/30/19 01:06 04:23 05:18 WBC RBC Hgb Hct MCH RDW Plt Count Lymph % (Auto) [place] % (Auto) [place] # Baso # Seg Neutrophils % Seg Neuts % (Manual) Lymphocytes % (Manual) Monocytes % (Manual) Seg Neutrophils # Seg Neutrophils # Man Lymphocytes # (Manual) Monocytes # (Manual) Eosinophils # (Manual) Basophils # (Manual) PT INR APTT ABG pH ABG pO2 ABG HCO3 ABG O2 Saturation ABG Base Excess ABG Hemoglobin 8.3 L Oxyhemoglobin Sodium Potassium Chloride Carbon Dioxide BUN 70 H Creatinine Glucose 122 H POC Glucose 130 H Lactic Acid Calcium Ionized Calcium Phosphorus Magnesium Total Bilirubin AST ALT Alkaline Phosphatase Ammonia Total Creatine Kinase CK-MB (CK-2) CK-MB (CK-2) Rel Index Total Protein Albumin Urine WBC (Auto) Vancomycin Trough Salicylates Acetaminophen Plasma/Serum Alcohol Crossmatch 12/30/19 12/30/19 12/30/19 05:40 12:17 17:43 WBC RBC Hgb Hct MCH RDW Plt Count Lymph % (Auto) [place] % (Auto) [place] # Baso # Seg Neutrophils % Seg Neuts % (Manual) Lymphocytes % (Manual) Monocytes % (Manual) Seg Neutrophils # Seg Neutrophils # Man Lymphocytes # (Manual) Monocytes # (Manual) Eosinophils # (Manual) Basophils # (Manual) PT INR APTT ABG pH ABG pO2 ABG HCO3 ABG O2 Saturation ABG Base Excess ABG Hemoglobin Oxyhemoglobin Sodium Potassium Chloride Carbon Dioxide BUN Creatinine Glucose POC Glucose 135 H 132 H 118 H Lactic Acid Calcium Ionized Calcium Phosphorus Magnesium Total Bilirubin AST ALT Alkaline Phosphatase Ammonia Total Creatine Kinase CK-MB (CK-2) CK-MB (CK-2) Rel Index Total Protein Albumin Urine WBC (Auto) Vancomycin Trough Salicylates Acetaminophen Plasma/Serum Alcohol Crossmatch 12/30/19 12/31/19 12/31/19 23:29 05:19 17:50 WBC RBC Hgb Hct MCH RDW Plt Count Lymph % (Auto) [place] % (Auto) [place] # Baso # Seg Neutrophils % Seg Neuts % (Manual) Lymphocytes % (Manual) Monocytes % (Manual) Seg Neutrophils # Seg Neutrophils # Man Lymphocytes # (Manual) Monocytes # (Manual) Eosinophils # (Manual) Basophils # (Manual) PT INR APTT ABG pH ABG pO2 ABG HCO3 ABG O2 Saturation ABG Base Excess ABG Hemoglobin Oxyhemoglobin Sodium Potassium Chloride Carbon Dioxide BUN Creatinine Glucose POC Glucose 114 H 109 H 116 H Lactic Acid Calcium Ionized Calcium Phosphorus Magnesium Total Bilirubin AST ALT Alkaline Phosphatase Ammonia Total Creatine Kinase CK-MB (CK-2) CK-MB (CK-2) Rel Index Total Protein Albumin Urine WBC (Auto) Vancomycin Trough Salicylates Acetaminophen Plasma/Serum Alcohol Crossmatch 01/01/20 01/01/20 01/01/20 00:10 05:19 12:02 WBC RBC Hgb Hct MCH RDW Plt Count Lymph % (Auto) [place] % (Auto) [place] # Baso # Seg Neutrophils % Seg Neuts % (Manual) Lymphocytes % (Manual) Monocytes % (Manual) Seg Neutrophils # Seg Neutrophils # Man Lymphocytes # (Manual) Monocytes # (Manual) Eosinophils # (Manual) Basophils # (Manual) PT INR APTT ABG pH ABG pO2 ABG HCO3 ABG O2 Saturation ABG Base Excess ABG Hemoglobin Oxyhemoglobin Sodium Potassium Chloride Carbon Dioxide BUN Creatinine Glucose POC Glucose 131 H 122 H 136 H Lactic Acid Calcium Ionized Calcium Phosphorus Magnesium Total Bilirubin AST ALT Alkaline Phosphatase Ammonia Total Creatine Kinase CK-MB (CK-2) CK-MB (CK-2) Rel Index Total Protein Albumin Urine WBC (Auto) Vancomycin Trough Salicylates Acetaminophen Plasma/Serum Alcohol Crossmatch 01/02/20 01/02/20 01/02/20 00:24 05:36 11:41 WBC RBC Hgb Hct MCH RDW Plt Count Lymph % (Auto) [place] % (Auto) [place] # Baso # Seg Neutrophils % Seg Neuts % (Manual) Lymphocytes % (Manual) Monocytes % (Manual) Seg Neutrophils # Seg Neutrophils # Man Lymphocytes # (Manual) Monocytes # (Manual) Eosinophils # (Manual) Basophils # (Manual) PT INR APTT ABG pH ABG pO2 ABG HCO3 ABG O2 Saturation ABG Base Excess ABG Hemoglobin Oxyhemoglobin Sodium Potassium Chloride Carbon Dioxide BUN Creatinine Glucose POC Glucose 119 H 109 H 125 H Lactic Acid Calcium Ionized Calcium Phosphorus Magnesium Total Bilirubin AST ALT Alkaline Phosphatase Ammonia Total Creatine Kinase CK-MB (CK-2) CK-MB (CK-2) Rel Index Total Protein Albumin Urine WBC (Auto) Vancomycin Trough Salicylates Acetaminophen Plasma/Serum Alcohol Crossmatch 01/02/20 01/03/20 01/03/20 17:49 05:29 12:13 WBC RBC Hgb Hct MCH RDW Plt Count Lymph % (Auto) [place] % (Auto) [place] # Baso # Seg Neutrophils % Seg Neuts % (Manual) Lymphocytes % (Manual) Monocytes % (Manual) Seg Neutrophils # Seg Neutrophils # Man Lymphocytes # (Manual) Monocytes # (Manual) Eosinophils # (Manual) Basophils # (Manual) PT INR APTT ABG pH ABG pO2 ABG HCO3 ABG O2 Saturation ABG Base Excess ABG Hemoglobin Oxyhemoglobin Sodium Potassium Chloride Carbon Dioxide BUN Creatinine Glucose POC Glucose 130 H 132 H 113 H Lactic Acid Calcium Ionized Calcium Phosphorus Magnesium Total Bilirubin AST ALT Alkaline Phosphatase Ammonia Total Creatine Kinase CK-MB (CK-2) CK-MB (CK-2) Rel Index Total Protein Albumin Urine WBC (Auto) Vancomycin Trough Salicylates Acetaminophen Plasma/Serum Alcohol Crossmatch 01/03/20 01/04/20 01/04/20 17:32 00:19 05:26 WBC RBC Hgb Hct MCH RDW Plt Count Lymph % (Auto) [place] % (Auto) [place] # Baso # Seg Neutrophils % Seg Neuts % (Manual) Lymphocytes % (Manual) Monocytes % (Manual) Seg Neutrophils # Seg Neutrophils # Man Lymphocytes # (Manual) Monocytes # (Manual) Eosinophils # (Manual) Basophils # (Manual) PT INR APTT ABG pH ABG pO2 ABG HCO3 ABG O2 Saturation ABG Base Excess ABG Hemoglobin Oxyhemoglobin Sodium Potassium Chloride Carbon Dioxide BUN Creatinine Glucose POC Glucose 127 H 141 H 129 H Lactic Acid Calcium Ionized Calcium Phosphorus Magnesium Total Bilirubin AST ALT Alkaline Phosphatase Ammonia Total Creatine Kinase CK-MB (CK-2) CK-MB (CK-2) Rel Index Total Protein Albumin Urine WBC (Auto) Vancomycin Trough Salicylates Acetaminophen Plasma/Serum Alcohol Crossmatch 01/04/20 01/04/20 01/05/20 11:39 17:29 05:22 WBC RBC Hgb Hct MCH RDW Plt Count Lymph % (Auto) [place] % (Auto) [place] # Baso # Seg Neutrophils % Seg Neuts % (Manual) Lymphocytes % (Manual) Monocytes % (Manual) Seg Neutrophils # Seg Neutrophils # Man Lymphocytes # (Manual) Monocytes # (Manual) Eosinophils # (Manual) Basophils # (Manual) PT INR APTT ABG pH ABG pO2 ABG HCO3 ABG O2 Saturation ABG Base Excess ABG Hemoglobin Oxyhemoglobin Sodium Potassium Chloride Carbon Dioxide BUN Creatinine Glucose POC Glucose 167 H 132 H 121 H Lactic Acid Calcium Ionized Calcium Phosphorus Magnesium Total Bilirubin AST ALT Alkaline Phosphatase Ammonia Total Creatine Kinase CK-MB (CK-2) CK-MB (CK-2) Rel Index Total Protein Albumin Urine WBC (Auto) Vancomycin Trough Salicylates Acetaminophen Plasma/Serum Alcohol Crossmatch 01/05/20 01/05/20 01/05/20 12:25 17:40 18:06 WBC RBC Hgb Hct MCH RDW Plt Count Lymph % (Auto) [place] % (Auto) [place] # Baso # Seg Neutrophils % Seg Neuts % (Manual) Lymphocytes % (Manual) Monocytes % (Manual) Seg Neutrophils # Seg Neutrophils # Man Lymphocytes # (Manual) Monocytes # (Manual) Eosinophils # (Manual) Basophils # (Manual) PT INR APTT ABG pH 7.472 H ABG pO2 99.2 H ABG HCO3 ABG O2 Saturation ABG Base Excess ABG Hemoglobin 7.8 L Oxyhemoglobin Sodium Potassium Chloride Carbon Dioxide BUN Creatinine Glucose POC Glucose 106 H 110 H Lactic Acid Calcium Ionized Calcium Phosphorus Magnesium Total Bilirubin AST ALT Alkaline Phosphatase Ammonia Total Creatine Kinase CK-MB (CK-2) CK-MB (CK-2) Rel Index Total Protein Albumin Urine WBC (Auto) Vancomycin Trough Salicylates Acetaminophen Plasma/Serum Alcohol Crossmatch 01/06/20 01/06/20 01/06/20 00:11 05:16 11:30 WBC RBC Hgb Hct MCH RDW Plt Count Lymph % (Auto) [place] % (Auto) [place] # Baso # Seg Neutrophils % Seg Neuts % (Manual) Lymphocytes % (Manual) Monocytes % (Manual) Seg Neutrophils # Seg Neutrophils # Man Lymphocytes # (Manual) Monocytes # (Manual) Eosinophils # (Manual) Basophils # (Manual) PT INR APTT ABG pH ABG pO2 ABG HCO3 ABG O2 Saturation ABG Base Excess ABG Hemoglobin Oxyhemoglobin Sodium Potassium Chloride Carbon Dioxide BUN Creatinine Glucose POC Glucose 108 H 124 H 125 H Lactic Acid Calcium Ionized Calcium Phosphorus Magnesium Total Bilirubin AST ALT Alkaline Phosphatase Ammonia Total Creatine Kinase CK-MB (CK-2) CK-MB (CK-2) Rel Index Total Protein Albumin Urine WBC (Auto) Vancomycin Trough Salicylates Acetaminophen Plasma/Serum Alcohol Crossmatch 01/06/20 01/06/20 01/07/20 17:53 23:51 04:12 WBC 16.5 H RBC 3.29 L Hgb 9.3 L Hct 28.1 L MCH RDW 18.2 H Plt Count 526 H Lymph % (Auto) 8.4 L [place] % (Auto) [place] # 1.0 H Baso # Seg Neutrophils % 84.4 H Seg Neuts % (Manual) Lymphocytes % (Manual) Monocytes % (Manual) Seg Neutrophils # 13.9 H Seg Neutrophils # Man Lymphocytes # (Manual) Monocytes # (Manual) Eosinophils # (Manual) Basophils # (Manual) PT INR APTT ABG pH ABG pO2 ABG HCO3 ABG O2 Saturation ABG Base Excess ABG Hemoglobin Oxyhemoglobin Sodium Potassium Chloride Carbon Dioxide BUN Creatinine Glucose POC Glucose 166 H 128 H Lactic Acid Calcium Ionized Calcium Phosphorus Magnesium Total Bilirubin AST ALT Alkaline Phosphatase Ammonia Total Creatine Kinase CK-MB (CK-2) CK-MB (CK-2) Rel Index Total Protein Albumin Urine WBC (Auto) Vancomycin Trough Salicylates Acetaminophen Plasma/Serum Alcohol Crossmatch 01/07/20 01/07/20 01/07/20 04:12 04:45 11:51 WBC RBC Hgb Hct MCH RDW Plt Count Lymph % (Auto) [place] % (Auto) [place] # Baso # Seg Neutrophils % Seg Neuts % (Manual) Lymphocytes % (Manual) Monocytes % (Manual) Seg Neutrophils # Seg Neutrophils # Man Lymphocytes # (Manual) Monocytes # (Manual) Eosinophils # (Manual) Basophils # (Manual) PT INR APTT ABG pH ABG pO2 ABG HCO3 ABG O2 Saturation ABG Base Excess ABG Hemoglobin Oxyhemoglobin Sodium 136 L Potassium Chloride Carbon Dioxide 21 L BUN 44 H Creatinine 0.6 L Glucose 124 H POC Glucose 134 H 138 H Lactic Acid Calcium Ionized Calcium Phosphorus Magnesium Total Bilirubin AST ALT Alkaline Phosphatase Ammonia Total Creatine Kinase CK-MB (CK-2) CK-MB (CK-2) Rel Index Total Protein Albumin Urine WBC (Auto) Vancomycin Trough Salicylates Acetaminophen Plasma/Serum Alcohol Crossmatch 01/07/20 01/08/20 01/08/20 17:36 00:33 05:29 WBC RBC Hgb Hct MCH RDW Plt Count Lymph % (Auto) [place] % (Auto) [place] # Baso # Seg Neutrophils % Seg Neuts % (Manual) Lymphocytes % (Manual) Monocytes % (Manual) Seg Neutrophils # Seg Neutrophils # Man Lymphocytes # (Manual) Monocytes # (Manual) Eosinophils # (Manual) Basophils # (Manual) PT INR APTT ABG pH ABG pO2 ABG HCO3 ABG O2 Saturation ABG Base Excess ABG Hemoglobin Oxyhemoglobin Sodium Potassium Chloride Carbon Dioxide BUN Creatinine Glucose POC Glucose 128 H 119 H 124 H Lactic Acid Calcium Ionized Calcium Phosphorus Magnesium Total Bilirubin AST ALT Alkaline Phosphatase Ammonia Total Creatine Kinase CK-MB (CK-2) CK-MB (CK-2) Rel Index Total Protein Albumin Urine WBC (Auto) Vancomycin Trough Salicylates Acetaminophen Plasma/Serum Alcohol Crossmatch 01/08/20 01/08/20 01/08/20 12:51 20:25 23:22 WBC RBC Hgb Hct MCH RDW Plt Count Lymph % (Auto) [place] % (Auto) [place] # Baso # Seg Neutrophils % Seg Neuts % (Manual) Lymphocytes % (Manual) Monocytes % (Manual) Seg Neutrophils # Seg Neutrophils # Man Lymphocytes # (Manual) Monocytes # (Manual) Eosinophils # (Manual) Basophils # (Manual) PT INR APTT ABG pH ABG pO2 132.2 H ABG HCO3 ABG O2 Saturation ABG Base Excess ABG Hemoglobin Oxyhemoglobin Sodium Potassium Chloride Carbon Dioxide BUN Creatinine Glucose POC Glucose 128 H 127 H Lactic Acid Calcium Ionized Calcium Phosphorus Magnesium Total Bilirubin AST ALT Alkaline Phosphatase Ammonia Total Creatine Kinase CK-MB (CK-2) CK-MB (CK-2) Rel Index Total Protein Albumin Urine WBC (Auto) Vancomycin Trough Salicylates Acetaminophen Plasma/Serum Alcohol Crossmatch 01/09/20 01/09/20 01/09/20 05:48 08:51 11:29 WBC RBC Hgb Hct MCH RDW Plt Count Lymph % (Auto) [place] % (Auto) [place] # Baso # Seg Neutrophils % Seg Neuts % (Manual) Lymphocytes % (Manual) Monocytes % (Manual) Seg Neutrophils # Seg Neutrophils # Man Lymphocytes # (Manual) Monocytes # (Manual) Eosinophils # (Manual) Basophils # (Manual) PT INR APTT ABG pH ABG pO2 94.3 H ABG HCO3 ABG O2 Saturation ABG Base Excess ABG Hemoglobin 9.5 L Oxyhemoglobin Sodium Potassium Chloride Carbon Dioxide BUN Creatinine Glucose POC Glucose 120 H 112 H Lactic Acid Calcium Ionized Calcium Phosphorus Magnesium Total Bilirubin AST ALT Alkaline Phosphatase Ammonia Total Creatine Kinase CK-MB (CK-2) CK-MB (CK-2) Rel Index Total Protein Albumin Urine WBC (Auto) Vancomycin Trough Salicylates Acetaminophen Plasma/Serum Alcohol Crossmatch 01/09/20 01/10/20 01/10/20 17:57 05:17 12:28 WBC RBC Hgb Hct MCH RDW Plt Count Lymph % (Auto) [place] % (Auto) [place] # Baso # Seg Neutrophils % Seg Neuts % (Manual) Lymphocytes % (Manual) Monocytes % (Manual) Seg Neutrophils # Seg Neutrophils # Man Lymphocytes # (Manual) Monocytes # (Manual) Eosinophils # (Manual) Basophils # (Manual) PT INR APTT ABG pH ABG pO2 ABG HCO3 ABG O2 Saturation ABG Base Excess ABG Hemoglobin Oxyhemoglobin Sodium Potassium Chloride Carbon Dioxide BUN Creatinine Glucose POC Glucose 122 H 115 H 116 H Lactic Acid Calcium Ionized Calcium Phosphorus Magnesium Total Bilirubin AST ALT Alkaline Phosphatase Ammonia Total Creatine Kinase CK-MB (CK-2) CK-MB (CK-2) Rel Index Total Protein Albumin Urine WBC (Auto) Vancomycin Trough Salicylates Acetaminophen Plasma/Serum Alcohol Crossmatch 01/10/20 01/10/20 01/11/20 18:25 23:47 06:05 WBC RBC Hgb Hct MCH RDW Plt Count Lymph % (Auto) [place] % (Auto) [place] # Baso # Seg Neutrophils % Seg Neuts % (Manual) Lymphocytes % (Manual) Monocytes % (Manual) Seg Neutrophils # Seg Neutrophils # Man Lymphocytes # (Manual) Monocytes # (Manual) Eosinophils # (Manual) Basophils # (Manual) PT INR APTT ABG pH ABG pO2 ABG HCO3 ABG O2 Saturation ABG Base Excess ABG Hemoglobin Oxyhemoglobin Sodium Potassium Chloride Carbon Dioxide BUN Creatinine Glucose POC Glucose 123 H 115 H 151 H Lactic Acid Calcium Ionized Calcium Phosphorus Magnesium Total Bilirubin AST ALT Alkaline Phosphatase Ammonia Total Creatine Kinase CK-MB (CK-2) CK-MB (CK-2) Rel Index Total Protein Albumin Urine WBC (Auto) Vancomycin Trough Salicylates Acetaminophen Plasma/Serum Alcohol Crossmatch 01/11/20 01/11/20 01/11/20 07:00 07:00 12:27 WBC 11.8 H RBC 3.40 L Hgb 9.4 L Hct 29.3 L MCH RDW 18.1 H Plt Count 549 H Lymph % (Auto) [place] % (Auto) 9.1 H [place] # 1.1 H Baso # Seg Neutrophils % 73.3 H Seg Neuts % (Manual) Lymphocytes % (Manual) Monocytes % (Manual) Seg Neutrophils # 8.7 H Seg Neutrophils # Man Lymphocytes # (Manual) Monocytes # (Manual) Eosinophils # (Manual) Basophils # (Manual) PT INR APTT ABG pH ABG pO2 ABG HCO3 ABG O2 Saturation ABG Base Excess ABG Hemoglobin Oxyhemoglobin Sodium 134 L Potassium Chloride 97.7 L Carbon Dioxide 21 L BUN 38 H Creatinine 0.5 L Glucose 168 H POC Glucose 117 H Lactic Acid Calcium 10.5 H Ionized Calcium Phosphorus Magnesium Total Bilirubin AST ALT Alkaline Phosphatase Ammonia Total Creatine Kinase CK-MB (CK-2) CK-MB (CK-2) Rel Index Total Protein Albumin Urine WBC (Auto) Vancomycin Trough Salicylates Acetaminophen Plasma/Serum Alcohol Crossmatch 01/11/20 01/12/20 01/12/20 18:19 00:53 05:24 WBC RBC Hgb Hct MCH RDW Plt Count Lymph % (Auto) [place] % (Auto) [place] # Baso # Seg Neutrophils % Seg Neuts % (Manual) Lymphocytes % (Manual) Monocytes % (Manual) Seg Neutrophils # Seg Neutrophils # Man Lymphocytes # (Manual) Monocytes # (Manual) Eosinophils # (Manual) Basophils # (Manual) PT INR APTT ABG pH ABG pO2 ABG HCO3 ABG O2 Saturation ABG Base Excess ABG Hemoglobin Oxyhemoglobin Sodium Potassium Chloride Carbon Dioxide BUN Creatinine Glucose POC Glucose 126 H 126 H 128 H Lactic Acid Calcium Ionized Calcium Phosphorus Magnesium Total Bilirubin AST ALT Alkaline Phosphatase Ammonia Total Creatine Kinase CK-MB (CK-2) CK-MB (CK-2) Rel Index Total Protein Albumin Urine WBC (Auto) Vancomycin Trough Salicylates Acetaminophen Plasma/Serum Alcohol Crossmatch 01/12/20 01/12/20 01/13/20 13:39 18:02 00:27 WBC RBC Hgb Hct MCH RDW Plt Count Lymph % (Auto) [place] % (Auto) [place] # Baso # Seg Neutrophils % Seg Neuts % (Manual) Lymphocytes % (Manual) Monocytes % (Manual) Seg Neutrophils # Seg Neutrophils # Man Lymphocytes # (Manual) Monocytes # (Manual) Eosinophils # (Manual) Basophils # (Manual) PT INR APTT ABG pH ABG pO2 ABG HCO3 ABG O2 Saturation ABG Base Excess ABG Hemoglobin Oxyhemoglobin Sodium Potassium Chloride Carbon Dioxide BUN Creatinine Glucose POC Glucose 146 H 125 H 131 H Lactic Acid Calcium Ionized Calcium Phosphorus Magnesium Total Bilirubin AST ALT Alkaline Phosphatase Ammonia Total Creatine Kinase CK-MB (CK-2) CK-MB (CK-2) Rel Index Total Protein Albumin Urine WBC (Auto) Vancomycin Trough Salicylates Acetaminophen Plasma/Serum Alcohol Crossmatch 01/13/20 01/13/20 01/13/20 05:44 11:54 17:18 WBC RBC Hgb Hct MCH RDW Plt Count Lymph % (Auto) [place] % (Auto) [place] # Baso # Seg Neutrophils % Seg Neuts % (Manual) Lymphocytes % (Manual) Monocytes % (Manual) Seg Neutrophils # Seg Neutrophils # Man Lymphocytes # (Manual) Monocytes # (Manual) Eosinophils # (Manual) Basophils # (Manual) PT INR APTT ABG pH ABG pO2 ABG HCO3 ABG O2 Saturation ABG Base Excess ABG Hemoglobin Oxyhemoglobin Sodium Potassium Chloride Carbon Dioxide BUN Creatinine Glucose POC Glucose 148 H 140 H 130 H Lactic Acid Calcium Ionized Calcium Phosphorus Magnesium Total Bilirubin AST ALT Alkaline Phosphatase Ammonia Total Creatine Kinase CK-MB (CK-2) CK-MB (CK-2) Rel Index Total Protein Albumin Urine WBC (Auto) Vancomycin Trough Salicylates Acetaminophen Plasma/Serum Alcohol Crossmatch 01/14/20 01/14/20 01/14/20 00:16 05:45 12:19 WBC RBC Hgb Hct MCH RDW Plt Count Lymph % (Auto) [place] % (Auto) [place] # Baso # Seg Neutrophils % Seg Neuts % (Manual) Lymphocytes % (Manual) Monocytes % (Manual) Seg Neutrophils # Seg Neutrophils # Man Lymphocytes # (Manual) Monocytes # (Manual) Eosinophils # (Manual) Basophils # (Manual) PT INR APTT ABG pH ABG pO2 ABG HCO3 ABG O2 Saturation ABG Base Excess ABG Hemoglobin Oxyhemoglobin Sodium Potassium Chloride Carbon Dioxide BUN Creatinine Glucose POC Glucose 125 H 146 H 147 H Lactic Acid Calcium Ionized Calcium Phosphorus Magnesium Total Bilirubin AST ALT Alkaline Phosphatase Ammonia Total Creatine Kinase CK-MB (CK-2) CK-MB (CK-2) Rel Index Total Protein Albumin Urine WBC (Auto) Vancomycin Trough Salicylates Acetaminophen Plasma/Serum Alcohol Crossmatch 01/14/20 01/14/20 01/15/20 18:10 23:54 05:14 WBC RBC Hgb Hct MCH RDW Plt Count Lymph % (Auto) [place] % (Auto) [place] # Baso # Seg Neutrophils % Seg Neuts % (Manual) Lymphocytes % (Manual) Monocytes % (Manual) Seg Neutrophils # Seg Neutrophils # Man Lymphocytes # (Manual) Monocytes # (Manual) Eosinophils # (Manual) Basophils # (Manual) PT INR APTT ABG pH ABG pO2 ABG HCO3 ABG O2 Saturation ABG Base Excess ABG Hemoglobin Oxyhemoglobin Sodium Potassium Chloride Carbon Dioxide BUN Creatinine Glucose POC Glucose 136 H 109 H 111 H Lactic Acid Calcium Ionized Calcium Phosphorus Magnesium Total Bilirubin AST ALT Alkaline Phosphatase Ammonia Total Creatine Kinase CK-MB (CK-2) CK-MB (CK-2) Rel Index Total Protein Albumin Urine WBC (Auto) Vancomycin Trough Salicylates Acetaminophen Plasma/Serum Alcohol Crossmatch 01/15/20 01/15/20 01/16/20 12:34 23:25 05:06 WBC RBC Hgb Hct MCH RDW Plt Count Lymph % (Auto) [place] % (Auto) [place] # Baso # Seg Neutrophils % Seg Neuts % (Manual) Lymphocytes % (Manual) Monocytes % (Manual) Seg Neutrophils # Seg Neutrophils # Man Lymphocytes # (Manual) Monocytes # (Manual) Eosinophils # (Manual) Basophils # (Manual) PT INR APTT ABG pH ABG pO2 ABG HCO3 ABG O2 Saturation ABG Base Excess ABG Hemoglobin Oxyhemoglobin Sodium Potassium Chloride Carbon Dioxide BUN Creatinine Glucose POC Glucose 131 H 120 H 121 H Lactic Acid Calcium Ionized Calcium Phosphorus Magnesium Total Bilirubin AST ALT Alkaline Phosphatase Ammonia Total Creatine Kinase CK-MB (CK-2) CK-MB (CK-2) Rel Index Total Protein Albumin Urine WBC (Auto) Vancomycin Trough Salicylates Acetaminophen Plasma/Serum Alcohol Crossmatch 01/16/20 01/17/20 01/17/20 23:46 05:32 06:47 WBC 13.6 H RBC 3.27 L Hgb 9.3 L Hct 28.5 L MCH RDW 17.0 H Plt Count 490 H Lymph % (Auto) 13.1 L [place] % (Auto) [place] # 1.0 H Baso # Seg Neutrophils % 77.5 H Seg Neuts % (Manual) Lymphocytes % (Manual) Monocytes % (Manual) Seg Neutrophils # 10.5 H Seg Neutrophils # Man Lymphocytes # (Manual) Monocytes # (Manual) Eosinophils # (Manual) Basophils # (Manual) PT INR APTT ABG pH ABG pO2 ABG HCO3 ABG O2 Saturation ABG Base Excess ABG Hemoglobin Oxyhemoglobin Sodium Potassium Chloride Carbon Dioxide BUN Creatinine Glucose POC Glucose 107 H 112 H Lactic Acid Calcium Ionized Calcium Phosphorus Magnesium Total Bilirubin AST ALT Alkaline Phosphatase Ammonia Total Creatine Kinase CK-MB (CK-2) CK-MB (CK-2) Rel Index Total Protein Albumin Urine WBC (Auto) Vancomycin Trough Salicylates Acetaminophen Plasma/Serum Alcohol Crossmatch 01/17/20 01/17/20 01/17/20 12:16 17:21 23:34 WBC RBC Hgb Hct MCH RDW Plt Count Lymph % (Auto) [place] % (Auto) [place] # Baso # Seg Neutrophils % Seg Neuts % (Manual) Lymphocytes % (Manual) Monocytes % (Manual) Seg Neutrophils # Seg Neutrophils # Man Lymphocytes # (Manual) Monocytes # (Manual) Eosinophils # (Manual) Basophils # (Manual) PT INR APTT ABG pH ABG pO2 ABG HCO3 ABG O2 Saturation ABG Base Excess ABG Hemoglobin Oxyhemoglobin Sodium Potassium Chloride Carbon Dioxide BUN Creatinine Glucose POC Glucose 145 H 150 H 160 H Lactic Acid Calcium Ionized Calcium Phosphorus Magnesium Total Bilirubin AST ALT Alkaline Phosphatase Ammonia Total Creatine Kinase CK-MB (CK-2) CK-MB (CK-2) Rel Index Total Protein Albumin Urine WBC (Auto) Vancomycin Trough Salicylates Acetaminophen Plasma/Serum Alcohol Crossmatch 01/18/20 01/18/20 01/18/20 05:47 12:43 18:26 WBC RBC Hgb Hct MCH RDW Plt Count Lymph % (Auto) [place] % (Auto) [place] # Baso # Seg Neutrophils % Seg Neuts % (Manual) Lymphocytes % (Manual) Monocytes % (Manual) Seg Neutrophils # Seg Neutrophils # Man Lymphocytes # (Manual) Monocytes # (Manual) Eosinophils # (Manual) Basophils # (Manual) PT INR APTT ABG pH ABG pO2 ABG HCO3 ABG O2 Saturation ABG Base Excess ABG Hemoglobin Oxyhemoglobin Sodium Potassium Chloride Carbon Dioxide BUN Creatinine Glucose POC Glucose 130 H 124 H 119 H Lactic Acid Calcium Ionized Calcium Phosphorus Magnesium Total Bilirubin AST ALT Alkaline Phosphatase Ammonia Total Creatine Kinase CK-MB (CK-2) CK-MB (CK-2) Rel Index Total Protein Albumin Urine WBC (Auto) Vancomycin Trough Salicylates Acetaminophen Plasma/Serum Alcohol Crossmatch 01/19/20 01/19/20 01/19/20 00:14 06:24 12:24 WBC RBC Hgb Hct MCH RDW Plt Count Lymph % (Auto) [place] % (Auto) [place] # Baso # Seg Neutrophils % Seg Neuts % (Manual) Lymphocytes % (Manual) Monocytes % (Manual) Seg Neutrophils # Seg Neutrophils # Man Lymphocytes # (Manual) Monocytes # (Manual) Eosinophils # (Manual) Basophils # (Manual) PT INR APTT ABG pH ABG pO2 ABG HCO3 ABG O2 Saturation ABG Base Excess ABG Hemoglobin Oxyhemoglobin Sodium Potassium Chloride Carbon Dioxide BUN Creatinine Glucose POC Glucose 114 H 144 H 132 H Lactic Acid Calcium Ionized Calcium Phosphorus Magnesium Total Bilirubin AST ALT Alkaline Phosphatase Ammonia Total Creatine Kinase CK-MB (CK-2) CK-MB (CK-2) Rel Index Total Protein Albumin Urine WBC (Auto) Vancomycin Trough Salicylates Acetaminophen Plasma/Serum Alcohol Crossmatch 01/19/20 01/20/20 01/21/20 17:50 12:06 05:46 WBC RBC Hgb Hct MCH RDW Plt Count Lymph % (Auto) [place] % (Auto) [place] # Baso # Seg Neutrophils % Seg Neuts % (Manual) Lymphocytes % (Manual) Monocytes % (Manual) Seg Neutrophils # Seg Neutrophils # Man Lymphocytes # (Manual) Monocytes # (Manual) Eosinophils # (Manual) Basophils # (Manual) PT INR APTT ABG pH ABG pO2 ABG HCO3 ABG O2 Saturation ABG Base Excess ABG Hemoglobin Oxyhemoglobin Sodium Potassium Chloride Carbon Dioxide BUN Creatinine Glucose POC Glucose 144 H 135 H 114 H Lactic Acid Calcium Ionized Calcium Phosphorus Magnesium Total Bilirubin AST ALT Alkaline Phosphatase Ammonia Total Creatine Kinase CK-MB (CK-2) CK-MB (CK-2) Rel Index Total Protein Albumin Urine WBC (Auto) Vancomycin Trough Salicylates Acetaminophen Plasma/Serum Alcohol Crossmatch 01/21/20 01/21/20 01/22/20 13:02 23:49 05:41 WBC RBC Hgb Hct MCH RDW Plt Count Lymph % (Auto) [place] % (Auto) [place] # Baso # Seg Neutrophils % Seg Neuts % (Manual) Lymphocytes % (Manual) Monocytes % (Manual) Seg Neutrophils # Seg Neutrophils # Man Lymphocytes # (Manual) Monocytes # (Manual) Eosinophils # (Manual) Basophils # (Manual) PT INR APTT ABG pH ABG pO2 ABG HCO3 ABG O2 Saturation ABG Base Excess ABG Hemoglobin Oxyhemoglobin Sodium Potassium Chloride Carbon Dioxide BUN Creatinine Glucose POC Glucose 136 H 120 H 124 H Lactic Acid Calcium Ionized Calcium Phosphorus Magnesium Total Bilirubin AST ALT Alkaline Phosphatase Ammonia Total Creatine Kinase CK-MB (CK-2) CK-MB (CK-2) Rel Index Total Protein Albumin Urine WBC (Auto) Vancomycin Trough Salicylates Acetaminophen Plasma/Serum Alcohol Crossmatch 01/22/20 01/22/20 01/22/20 11:44 16:31 23:25 WBC RBC Hgb Hct MCH RDW Plt Count Lymph % (Auto) [place] % (Auto) [place] # Baso # Seg Neutrophils % Seg Neuts % (Manual) Lymphocytes % (Manual) Monocytes % (Manual) Seg Neutrophils # Seg Neutrophils # Man Lymphocytes # (Manual) Monocytes # (Manual) Eosinophils # (Manual) Basophils # (Manual) PT INR APTT ABG pH ABG pO2 ABG HCO3 ABG O2 Saturation ABG Base Excess ABG Hemoglobin Oxyhemoglobin Sodium Potassium Chloride Carbon Dioxide BUN Creatinine Glucose POC Glucose 173 H 111 H 134 H Lactic Acid Calcium Ionized Calcium Phosphorus Magnesium Total Bilirubin AST ALT Alkaline Phosphatase Ammonia Total Creatine Kinase CK-MB (CK-2) CK-MB (CK-2) Rel Index Total Protein Albumin Urine WBC (Auto) Vancomycin Trough Salicylates Acetaminophen Plasma/Serum Alcohol Crossmatch 01/23/20 05:15 WBC RBC Hgb Hct MCH RDW Plt Count Lymph % (Auto) [place] % (Auto) [place] # Baso # Seg Neutrophils % Seg Neuts % (Manual) Lymphocytes % (Manual) Monocytes % (Manual) Seg Neutrophils # Seg Neutrophils # Man Lymphocytes # (Manual) Monocytes # (Manual) Eosinophils # (Manual) Basophils # (Manual) PT INR APTT ABG pH ABG pO2 ABG HCO3 ABG O2 Saturation ABG Base Excess ABG Hemoglobin Oxyhemoglobin Sodium Potassium Chloride Carbon Dioxide BUN Creatinine Glucose POC Glucose 117 H Lactic Acid Calcium Ionized Calcium Phosphorus Magnesium Total Bilirubin AST ALT Alkaline Phosphatase Ammonia Total Creatine Kinase CK-MB (CK-2) CK-MB (CK-2) Rel Index Total Protein Albumin Urine WBC (Auto) Vancomycin Trough Salicylates Acetaminophen Plasma/Serum Alcohol Crossmatch Allied health notes reviewed: RT
[2020-01-23] MEDS: SERTRALINE 50 MG TAB PO SCH (09:57)
[2020-01-23] MEDS: TAMSULOSIN 0.4 MG CAP PO SCH (09:57)
[2020-01-23] MEDS: LANSOPRAZOLE 30 MG SOLUTAB FEEDTUBE SCH (09:57)
[2020-01-23] MEDS: levETIRAcetam 500 MG/5 ML ORAL LIQD PO SCH ×2 (09:57→22:02)
[2020-01-23] MEDS: MIRTAZAPINE 30 MG TAB PO SCH (09:58)
[2020-01-23] MEDS: hydrOXYzine PAMOATE 25 MG CAP PO SCH ×2 (09:58→22:02)
--- NOTE | 2020-01-23 11:49 | Progress Note ---
Assessment and Plan / Anoxic brain injury: suspected CT head: No acute abnormality. EEG ordered showed Generalized slowing. No seizures or epileptiform activity. Per neurology : Patient found to have intact corneal/VOR/cough reflexes, and is withdrawing lower extremities, given that patient had an out of hospital cardiac arrest, the time of which is uncertain, the likelihood of meaningful neurological recovery is somewhat low. -Patient now opening her eyes and able to follow minor command by nodding head /Acute Respiratory failure -s/p intubation, s/p trach and PEG on 12/12 with mechanical ventilation, now on T-piece - CTA was done and negative for PE, - Echo quality is poor, showed diastolic dysfunction - continue weaning as tolerated /Anemia, microcytic - Status post 3 units PRBC transfusion, H&H low stable /Acute metabolic encephalopathy/toxic encephalopathy due to the above - cont supportive care /Hyperammonemia - likely from liver disease related to EtOH abuse - Patient had elevated ammonia level and treated with lactulose /Metabolic Acidosis -Alcohol ketoacidosis vs hypoprofusion -Continue to monitor /ELevated LFTs, stable now - due to ischemic hepatitis. /Leucocytosis with sepsis - Source MRSA bacteremia and MSSA pneumonia. UA showed pyuria. RUQ US showed no ascites. - Repeat TTE negative for vegetation. Completed 7 days of Ceftriaxone on 11/29/2019. -Treated with Abx vancomycin 1 gm IV q 12 hour total 2 week till 12/30/2019 /MSSA pneumonia: Status post vancomycin till 12/30/2019 /ALcohol USe Disorder - given ongoing Alcohol use almost daily, s/p IV Thiamine - monitor /Severe hypokalemia -Repleted /Seizure disorder: treat with Keppra /H. Influenzae, tracheobronchitis, treated with abx DNR CODE STATUS Disposition: prognosis guarded. Family okay for DNR, PT recommended subacute rehab, discharge pending on placement. Brief History: 54-year-old female with a past medical history of Hypertension, Depression, Tobacco use Disorder, Alcohol use Disorder as confirmed by Daughter and pt's mother presents to the hospital status post cardiac arrest at home. EMS found pt in [facility]. They were unable to intubate patient with a ET tube because she was clenching down therefore Joe airway placed. Per the ED physician who evaluated pt, Patient presented with a pulse, intermittent respirations, and bagging support via Joe airway with O2 sat of 100%. Accu-Chek of 71 obtained by EMS. She was intubated in the ER and called for admission. Following admission patient was diagnosed with anoxic brain injury, sepsis with MRSA bacteremia and MSSA pneumonia, alcoholic liver disease. Family member initially wished for full code then changed to DNR, patient treated with IV antibiotics for sepsis, status post trach and PEG on 12/13/19. Weaned off from the vent and put on T- piece. Patient is uninsured, waiting for placement, guarded prognosis. Physical exam: General appearance: Present: other (elderly female, open eyes) - EENT Eyes: no scleral icterus, no conjunctival injection, pupil not reactive ENT: clear oral mucosa, dentition normal, no oropharyngeal erythema Ears: bilateral: normal - Neck Neck: trach on place - Respiratory Respiratory effort: other (on T-piece) Respiratory: bilateral: rales - Cardiovascular Rhythm: regular Heart Sounds: Present: S1 & S2. Absent: gallop, rub Extremities: pulses intact, No edema, normal color - Gastrointestinal General gastrointestinal: Present: soft, non-tender, non-distended, normal bowel sounds - Integumentary Integumentary: clear, warm, dry - Musculoskeletal Musculoskeletal: No joint swelling or tenderness - Neurologic Neurologic: other (2+ reflexes throughout). respond to commend and nods head. generalized weakness - Psychiatric Psychiatric: co-operative Subjective Date of service: 01/23/20 Principal diagnosis: Ac cardiopulmonary arrest; Ac hypoxemic resp failure; Acute encephalopathy Interval history: Patient seen and examined medical records reviewed Patient is alert and awake not in acute distress Tracheostomy on T-piece, Vital signs noted discharge pending on placement Objective - Constitutional Vitals: Vital Signs - 12hr 01/23/20 01/23/20 01/23/20 03:41 05:20 08:19 Temperature 97.7 F 98.9 F Pulse Rate 108 H 107 H Respiratory 18 18 Rate Blood Pressure 124/82 123/82 O2 Sat by Pulse 94 68 L Oximetry O2 Sat by Pulse 95 Oximetry [ Assessment] - Labs CBC & Chem 7: 01/17/20 05:32 01/11/20 07:00 Labs: Abnormal lab results 01/22/20 01/22/20 01/23/20 Range/Units 16:31 23:25 05:15 POC Glucose 111 H 134 H 117 H (70-105)
[2020-01-23] MEDS: QUEtiapine 100 MG TAB FEEDTUBE SCH (22:02)
[2020-01-24] MEDS: ALBUTEROL 2.5 MG/3 ML NEBU IH SCH ×2 (01:54→07:44)
[2020-01-24] MEDS: ACETYLCYSTEINE 20% 200 MG/1 ML *FOR INHALATION USE INHALATION SCH ×3 (01:54→21:41)
[2020-01-24 05:09] LABS: Basophils # (Auto) 0.1 K/mm3 (0.0-0.1); Basophils % (Auto) 0.4 % (0.0-1.8); Eosinophils # (Auto) 0.1 K/mm3 (0.0-0.4); Eosinophils % (Auto) 0.4 % (0.0-4.3); Hematocrit 30.4 % (30.3-42.9); Hemoglobin 10.1 gm/dl (10.1-14.3); Lymphocytes # (Auto) 2.1 K/mm3 (1.2-5.4); Lymphocytes % (Auto) 11.8 % (13.4-35.0); Mean Corpuscular HGB Conc 33 % (30-34); Mean Corpuscular Volume 85 fl (79-97); Monocytes # (Auto) 1.3 K/mm3 (0.0-0.8); Monocytes % (Auto) 7.5 % (0.0-7.3); Platelet Count 688 K/mm3 (140-440); Red Cell Distribution Width 16.2 % (13.2-15.2)
[2020-01-24 05:27] LABS: BUN/Creatinine Ratio 73; Blood Urea Nitrogen 22 mg/dL (7-17); Calcium 10.9 mg/dL (8.4-10.2); Hemolysis Index 4
[2020-01-24] MEDS: SERTRALINE 50 MG TAB PO SCH (10:33)
[2020-01-24] MEDS: LANSOPRAZOLE 30 MG SOLUTAB FEEDTUBE SCH (10:33)
[2020-01-24] MEDS: MIRTAZAPINE 30 MG TAB PO SCH (10:34)
[2020-01-24] MEDS: levETIRAcetam 500 MG/5 ML ORAL LIQD PO SCH ×2 (10:34→22:40)
[2020-01-24] MEDS: hydrOXYzine PAMOATE 25 MG CAP PO SCH ×2 (10:34→22:40)
[2020-01-24] MEDS: TAMSULOSIN 0.4 MG CAP PO SCH (10:34)
[2020-01-24] MEDS: GLYCOPYRROLATE 1 MG TAB PO SCH ×3 (10:36→21:25)
--- NOTE | 2020-01-24 12:00 | Progress Note ---
Assessment and Plan Acute cardiopulmonary arrest with ROSC Acute hypoxemic respiratory failure on MVS Acute metabolic-toxic encephalopathy Metabolic acidosis/alcoholic acidosis/Lactic acidosis Ischemic hepatitis Leucocytosis with lactic acidosis Tobacco use disorder ALcohol use Disorder Hypokalemia High grade fevers - begin PMV trials as tolerated - continue mucomyst nebs - advance diet per [employer] - no new issues; continue care as below otherwise - repeat CXR prn at this point - Continue to wean supplemental oxygen for target O2 sat's > 90% - continue bronchodilators with routine trach care and pulmonary hygiene per RT - Slow Seroquel taper - consider Provigil - s/p Antibiotics per ID recommendations - continue Reglan for G.I. motility - Continue VTE and Stress ulcer prophylaxis - Continue enteric nutritional support - Monitor glycemic control, with target blood glucose 140-180 mg/dL while criti kailey ill (Avoid hypoglycemia) - ABG and CXR prn - Continue to avoid nephrotoxins, adjust all medications fro GFR and CrCL - Continue to avoid benzodiazepines , as much as possible, to reduce the poss ibility of delirium - Continue prn analgesia per CPOT score - Continue to maintain of sleep-wake cycle, avoid delirium - PT/OT/ROM exercises- awaiting PT/OT evaluation - Continue mobility protocol and skin assessment per protocol for pressure ulcer prevention - Continue to monitor for clinical seizures - Continue Nicotine withdrawal precautions, alcohol withdrawal precautions - continue other care per attending / other consultants ..... re-evaluate in am & prn CONDITION: FAIR PROGNOSIS: IMPROVED CODE STATUS: FULL CODE Subjective Date of service: 01/24/20 Principal diagnosis: Ac cardiopulmonary arrest; Ac hypoxemic resp failure; Acute encephalopathy Interval history: Patient is seen today for: Acute cardiopulmonary arrest with ROSC; Acute hypoxemic respiratory failure; Acute metabolic-toxic encephalopathy; Ischemic hepatitis; Leucocytosis with lactic acidosis; Tobacco use disorder; Alcohol use Disorder; Hypokalemia; High grade fevers Seen and examined at bedside; 24hour events reviewed; nursing and respiratory care staff consulted; no adverse overnight events reported to me; resting peacefully in bed; remains on T-collar; secretions better with mucomyst nebs; no new issues; attempting to mouth words Objective Vital Signs - 12hr 01/24/20 01/24/20 01/24/20 00:00 03:57 04:00 Temperature 98.5 F Pulse Rate 125 H 122 H 122 H Pulse Rate [ Anterior Right Throughout] Respiratory 18 Rate Respiratory Rate [Anterior Right Throughout] Respiratory 20 Rate [ Generalized] Blood Pressure 116/85 O2 Sat by Pulse 100 Oximetry O2 Sat by Pulse Oximetry [ Assessment] 01/24/20 01/24/20 01/24/20 08:00 08:14 08:19 Temperature 97.7 F Pulse Rate 100 H 126 H Pulse Rate [ 126 H Anterior Right Throughout] Respiratory 18 Rate Respiratory 18 Rate [Anterior Right Throughout] Respiratory Rate [ Generalized] Blood Pressure 107/71 O2 Sat by Pulse 95 Oximetry O2 Sat by Pulse Oximetry [ Assessment] 01/24/20 01/24/20 09:18 09:20 Temperature Pulse Rate Pulse Rate [ Anterior Right Throughout] Respiratory Rate Respiratory Rate [Anterior Right Throughout] Respiratory Rate [ Generalized] Blood Pressure O2 Sat by Pulse 98 Oximetry O2 Sat by Pulse 100 Oximetry [ Assessment] Constitutional: no acute distress, other (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, with midline tracheostomy and with normal respiratory effort aT REST) Eyes: non-icteric ENT: oropharynx moist, other (s/p trach) Neck: supple, no lymphadenopathy, no JVD Effort: mildly labored Ascultation: Bilateral: diminished breath sounds, rhonchi Percussion: Bilateral: not dull Cardiovascular: regular rate and rhythm (tachycardia), other (S1,S2) Gastrointestinal: normoactive bowel sounds, soft, non-tender, non-distended Integumentary: normal Extremities: no cyanosis, no edema, pulses normal, no ischemia or petechiae Neurologic: other (awake; folowing simple commands) Psychiatric: other (Psychiatric: Unable to assess re: AMS) CBC and BMP: 01/24/20 04:47 01/24/20 04:47 ABG, PT/INR, D-dimer: ABG ABG pH 7.429 pH Units (7.350-7.450) 01/09/20 08:51 ABG pCO2 39.1 mm Hg 01/09/20 08:51 ABG pO2 94.3 mm Hg (80.0-90.0) H 01/09/20 08:51 ABG O2 Saturation 97.4 % (95.0-99.0) 01/09/20 08:51 PT/INR, D-dimer PT 17.0 Sec. (12.2-14.9) H 03/06/20 03:47 INR 1.36 (0.87-1.13) H 11/23/19 03:47 Abnormal lab findings: Abnormal Labs 11/22/19 11/22/19 11/22/19 23:17 23:18 23:27 WBC 21.2 H RBC 3.59 L Hgb 9.8 L Hct MCH 27 L RDW 18.6 H Plt Count 454 H Lymph % (Auto) [place] % (Auto) [place] # Baso # Seg Neutrophils % Seg Neuts % (Manual) 86.0 H Lymphocytes % (Manual) 9.0 L Monocytes % (Manual) Seg Neutrophils # Seg Neutrophils # Man 18.2 H Lymphocytes # (Manual) Monocytes # (Manual) 1.1 H Eosinophils # (Manual) Basophils # (Manual) PT INR APTT ABG pH ABG pO2 ABG HCO3 ABG O2 Saturation ABG Base Excess ABG Hemoglobin Oxyhemoglobin Sodium Potassium Chloride Carbon Dioxide BUN Creatinine Glucose POC Glucose 53 L Lactic Acid Calcium Ionized Calcium Phosphorus Magnesium Total Bilirubin AST ALT Alkaline Phosphatase Ammonia Total Creatine Kinase CK-MB (CK-2) CK-MB (CK-2) Rel Index Total Protein Albumin Urine WBC (Auto) 40.0 H Vancomycin Trough Salicylates Acetaminophen Plasma/Serum Alcohol Crossmatch 11/22/19 11/22/19 11/22/19 23:27 23:27 23:27 WBC RBC Hgb Hct MCH RDW Plt Count Lymph % (Auto) [place] % (Auto) [place] # Baso # Seg Neutrophils % Seg Neuts % (Manual) Lymphocytes % (Manual) Monocytes % (Manual) Seg Neutrophils # Seg Neutrophils # Man Lymphocytes # (Manual) Monocytes # (Manual) Eosinophils # (Manual) Basophils # (Manual) PT INR APTT ABG pH ABG pO2 ABG HCO3 ABG O2 Saturation ABG Base Excess ABG Hemoglobin Oxyhemoglobin Sodium Potassium 2.4 L* Chloride 85.1 L Carbon Dioxide 19 L BUN Creatinine 0.5 L Glucose 261 H POC Glucose Lactic Acid Calcium Ionized Calcium Phosphorus Magnesium Total Bilirubin AST 609 H ALT 152 H Alkaline Phosphatase 160 H Ammonia 117.0 H Total Creatine Kinase 139 H CK-MB (CK-2) 8.3 H CK-MB (CK-2) Rel Index 5.9 H Total Protein Albumin 3.6 L Urine WBC (Auto) Vancomycin Trough Salicylates < 0.3 L Acetaminophen Plasma/Serum Alcohol Crossmatch 0311/22/19 11/23/19 23:27 23:27 01:10 WBC RBC Hgb Hct MCH RDW Plt Count Lymph % (Auto) [place] % (Auto) [place] # Baso # Seg Neutrophils % Seg Neuts % (Manual) Lymphocytes % (Manual) Monocytes % (Manual) Seg Neutrophils # Seg Neutrophils # Man Lymphocytes # (Manual) Monocytes # (Manual) Eosinophils # (Manual) Basophils # (Manual) PT INR APTT ABG pH 7.273 L ABG pO2 209.7 H ABG HCO3 ABG O2 Saturation 99.2 H ABG Base Excess -3.9 L ABG Hemoglobin 10.6 L Oxyhemoglobin 93.9 L Sodium Potassium Chloride Carbon Dioxide BUN Creatinine Glucose POC Glucose Lactic Acid Calcium Ionized Calcium Phosphorus Magnesium Total Bilirubin AST ALT Alkaline Phosphatase Ammonia Total Creatine Kinase CK-MB (CK-2) CK-MB (CK-2) Rel Index Total Protein Albumin Urine WBC (Auto) Vancomycin Trough Salicylates Acetaminophen < 5.0 L Plasma/Serum Alcohol 0.08 H Crossmatch 11/23/19 11/23/19 11/23/19 01:19 01:19 03:47 WBC RBC Hgb Hct MCH RDW Plt Count Lymph % (Auto) [place] % (Auto) [place] # Baso # Seg Neutrophils % Seg Neuts % (Manual) Lymphocytes % (Manual) Monocytes % (Manual) Seg Neutrophils # Seg Neutrophils # Man Lymphocytes # (Manual) Monocytes # (Manual) Eosinophils # (Manual) Basophils # (Manual) PT 16.3 H INR 1.29 H APTT ABG pH ABG pO2 ABG HCO3 ABG O2 Saturation ABG Base Excess ABG Hemoglobin Oxyhemoglobin Sodium Potassium Chloride Carbon Dioxide BUN Creatinine Glucose POC Glucose Lactic Acid 2.10 H* 5.00 H* Calcium Ionized Calcium Phosphorus Magnesium Total Bilirubin AST ALT Alkaline Phosphatase Ammonia Total Creatine Kinase CK-MB (CK-2) CK-MB (CK-2) Rel Index Total Protein Albumin Urine WBC (Auto) Vancomycin Trough Salicylates Acetaminophen Plasma/Serum Alcohol Crossmatch 11/23/19 11/23/19 11/23/19 03:47 03:47 04:53 WBC RBC Hgb 9.4 L Hct MCH RDW Plt Count Lymph % (Auto) [place] % (Auto) [place] # Baso # Seg Neutrophils % Seg Neuts % (Manual) Lymphocytes % (Manual) Monocytes % (Manual) Seg Neutrophils # Seg Neutrophils # Man Lymphocytes # (Manual) Monocytes # (Manual) Eosinophils # (Manual) Basophils # (Manual) PT 17.0 H INR 1.36 H APTT 128.2 H* ABG pH ABG pO2 ABG HCO3 ABG O2 Saturation ABG Base Excess ABG Hemoglobin Oxyhemoglobin Sodium Potassium Chloride Carbon Dioxide 18 L BUN Creatinine 0.5 L Glucose 105 H POC Glucose Lactic Acid Calcium 8.3 L Ionized Calcium Phosphorus 2.40 L Magnesium Total Bilirubin 1.30 H AST 761 H ALT 158 H Alkaline Phosphatase 143 H Ammonia Total Creatine Kinase CK-MB (CK-2) CK-MB (CK-2) Rel Index Total Protein Albumin 2.8 L Urine WBC (Auto) Vancomycin Trough Salicylates Acetaminophen Plasma/Serum Alcohol Crossmatch 11/23/19 11/23/19 11/23/19 05:12 06:32 06:32 WBC 16.8 H RBC 3.31 L Hgb 8.9 L Hct 28.7 L MCH 27 L RDW 18.6 H Plt Count Lymph % (Auto) [place] % (Auto) [place] # Baso # Seg Neutrophils % Seg Neuts % (Manual) 94.0 H Lymphocytes % (Manual) 1.0 L Monocytes % (Manual) Seg Neutrophils # Seg Neutrophils # Man 15.8 H Lymphocytes # (Manual) 0.2 L Monocytes # (Manual) Eosinophils # (Manual) Basophils # (Manual) PT INR APTT ABG pH ABG pO2 ABG HCO3 ABG O2 Saturation ABG Base Excess -3.2 L ABG Hemoglobin 9.0 L Oxyhemoglobin 93.6 L Sodium Potassium Chloride Carbon Dioxide BUN Creatinine Glucose POC Glucose Lactic Acid Calcium Ionized Calcium 4.5 L Phosphorus Magnesium Total Bilirubin AST ALT Alkaline Phosphatase Ammonia Total Creatine Kinase CK-MB (CK-2) CK-MB (CK-2) Rel Index Total Protein Albumin Urine WBC (Auto) Vancomycin Trough Salicylates Acetaminophen Plasma/Serum Alcohol Crossmatch 11/23/19 11/24/19 11/24/19 06:32 04:35 04:35 WBC RBC Hgb Hct MCH RDW Plt Count Lymph % (Auto) [place] % (Auto) [place] # Baso # Seg Neutrophils % Seg Neuts % (Manual) Lymphocytes % (Manual) Monocytes % (Manual) Seg Neutrophils # Seg Neutrophils # Man Lymphocytes # (Manual) Monocytes # (Manual) Eosinophils # (Manual) Basophils # (Manual) PT INR APTT ABG pH ABG pO2 ABG HCO3 ABG O2 Saturation ABG Base Excess ABG Hemoglobin Oxyhemoglobin Sodium Potassium Chloride Carbon Dioxide BUN Creatinine Glucose POC Glucose Lactic Acid 3.30 H* Calcium Ionized Calcium Phosphorus Magnesium 1.40 L Total Bilirubin AST ALT Alkaline Phosphatase Ammonia 98.0 H Total Creatine Kinase CK-MB (CK-2) CK-MB (CK-2) Rel Index Total Protein Albumin Urine WBC (Auto) Vancomycin Trough Salicylates Acetaminophen Plasma/Serum Alcohol Crossmatch 11/24/19 11/25/19 11/25/19 05:22 04:34 05:05 WBC 17.3 H RBC 2.88 L Hgb 7.8 L Hct 24.6 L MCH 27 L RDW 18.5 H Plt Count Lymph % (Auto) 7.7 L [place] % (Auto) 9.7 H [place] # 1.7 H Baso # Seg Neutrophils % 82.2 H Seg Neuts % (Manual) Lymphocytes % (Manual) Monocytes % (Manual) Seg Neutrophils # 14.2 H Seg Neutrophils # Man Lymphocytes # (Manual) Monocytes # (Manual) Eosinophils # (Manual) Basophils # (Manual) PT INR APTT ABG pH 7.475 H ABG pO2 ABG HCO3 29.4 H 32.3 H ABG O2 Saturation ABG Base Excess 5.4 H 6.9 H ABG Hemoglobin 9.0 L 10.6 L Oxyhemoglobin 94.3 L Sodium Potassium Chloride Carbon Dioxide BUN Creatinine Glucose POC Glucose Lactic Acid Calcium Ionized Calcium Phosphorus Magnesium Total Bilirubin AST ALT Alkaline Phosphatase Ammonia Total Creatine Kinase CK-MB (CK-2) CK-MB (CK-2) Rel Index Total Protein Albumin Urine WBC (Auto) Vancomycin Trough Salicylates Acetaminophen Plasma/Serum Alcohol Crossmatch 11/25/19 11/25/19 11/26/19 05:05 22:46 03:31 WBC RBC Hgb Hct MCH RDW Plt Count Lymph % (Auto) [place] % (Auto) [place] # Baso # Seg Neutrophils % Seg Neuts % (Manual) Lymphocytes % (Manual) Monocytes % (Manual) Seg Neutrophils # Seg Neutrophils # Man Lymphocytes # (Manual) Monocytes # (Manual) Eosinophils # (Manual) Basophils # (Manual) PT INR APTT ABG pH 7.459 H ABG pO2 ABG HCO3 34.2 H ABG O2 Saturation ABG Base Excess 9.4 H ABG Hemoglobin 7.6 L Oxyhemoglobin 94.8 L Sodium 152 H D 147 H Potassium 2.3 L* D 2.8 L* D Chloride 107.8 H Carbon Dioxide 31 H D 33 H BUN Creatinine 0.6 L 0.6 L Glucose 148 H 177 H POC Glucose Lactic Acid Calcium Ionized Calcium Phosphorus Magnesium Total Bilirubin AST 105 H ALT 71 H Alkaline Phosphatase 155 H Ammonia Total Creatine Kinase CK-MB (CK-2) CK-MB (CK-2) Rel Index Total Protein 5.2 L D Albumin 2.9 L Urine WBC (Auto) Vancomycin Trough Salicylates Acetaminophen Plasma/Serum Alcohol Crossmatch 11/26/19 11/26/19 11/27/19 08:24 08:24 04:20 WBC 12.0 H RBC 3.00 L Hgb 8.0 L 9.3 L Hct 25.9 L 29.7 L MCH 27 L RDW 18.5 H Plt Count Lymph % (Auto) [place] % (Auto) [place] # Baso # Seg Neutrophils % Seg Neuts % (Manual) 89.0 H Lymphocytes % (Manual) 4.0 L Monocytes % (Manual) Seg Neutrophils # Seg Neutrophils # Man 10.7 H Lymphocytes # (Manual) 0.5 L Monocytes # (Manual) Eosinophils # (Manual) Basophils # (Manual) PT INR APTT ABG pH ABG pO2 ABG HCO3 ABG O2 Saturation ABG Base Excess ABG Hemoglobin Oxyhemoglobin Sodium 146 H Potassium 3.4 L D Chloride Carbon Dioxide BUN Creatinine 0.5 L Glucose 165 H POC Glucose Lactic Acid Calcium Ionized Calcium Phosphorus Magnesium Total Bilirubin AST 57 H ALT Alkaline Phosphatase 166 H Ammonia Total Creatine Kinase CK-MB (CK-2) CK-MB (CK-2) Rel Index Total Protein Albumin 2.9 L Urine WBC (Auto) Vancomycin Trough Salicylates Acetaminophen Plasma/Serum Alcohol Crossmatch 11/27/19 11/27/19 11/27/19 04:28 04:28 04:42 WBC RBC Hgb Hct MCH RDW Plt Count Lymph % (Auto) [place] % (Auto) [place] # Baso # Seg Neutrophils % Seg Neuts % (Manual) Lymphocytes % (Manual) Monocytes % (Manual) Seg Neutrophils # Seg Neutrophils # Man Lymphocytes # (Manual) Monocytes # (Manual) Eosinophils # (Manual) Basophils # (Manual) PT INR APTT ABG pH 7.470 H ABG pO2 74.0 L ABG HCO3 33.8 H ABG O2 Saturation ABG Base Excess 9.1 H ABG Hemoglobin 8.7 L Oxyhemoglobin 94.7 L Sodium 146 H Potassium 2.9 L* Chloride Carbon Dioxide BUN 25 H Creatinine Glucose 213 H POC Glucose Lactic Acid Calcium Ionized Calcium Phosphorus 1.00 L Magnesium Total Bilirubin AST ALT Alkaline Phosphatase Ammonia Total Creatine Kinase CK-MB (CK-2) CK-MB (CK-2) Rel Index Total Protein Albumin Urine WBC (Auto) Vancomycin Trough Salicylates Acetaminophen Plasma/Serum Alcohol Crossmatch 11/27/19 11/27/19 11/27/19 05:37 12:20 15:46 WBC RBC Hgb Hct MCH RDW Plt Count Lymph % (Auto) [place] % (Auto) [place] # Baso # Seg Neutrophils % Seg Neuts % (Manual) Lymphocytes % (Manual) Monocytes % (Manual) Seg Neutrophils # Seg Neutrophils # Man Lymphocytes # (Manual) Monocytes # (Manual) Eosinophils # (Manual) Basophils # (Manual) PT INR APTT ABG pH ABG pO2 ABG HCO3 ABG O2 Saturation ABG Base Excess ABG Hemoglobin Oxyhemoglobin Sodium 146 H Potassium 3.5 L D Chloride Carbon Dioxide BUN 24 H Creatinine 0.6 L Glucose 187 H POC Glucose 117 H 220 H Lactic Acid Calcium Ionized Calcium Phosphorus Magnesium Total Bilirubin AST ALT Alkaline Phosphatase Ammonia Total Creatine Kinase CK-MB (CK-2) CK-MB (CK-2) Rel Index Total Protein Albumin Urine WBC (Auto) Vancomycin Trough Salicylates Acetaminophen Plasma/Serum Alcohol Crossmatch 11/27/19 11/28/19 11/28/19 17:28 05:00 05:02 WBC RBC Hgb Hct MCH RDW Plt Count Lymph % (Auto) [place] % (Auto) [place] # Baso # Seg Neutrophils % Seg Neuts % (Manual) Lymphocytes % (Manual) Monocytes % (Manual) Seg Neutrophils # Seg Neutrophils # Man Lymphocytes # (Manual) Monocytes # (Manual) Eosinophils # (Manual) Basophils # (Manual) PT INR APTT ABG pH ABG pO2 72.4 L ABG HCO3 33.6 H ABG O2 Saturation 94.1 L ABG Base Excess 7.3 H ABG Hemoglobin Oxyhemoglobin 91.8 L Sodium 146 H Potassium 3.3 L Chloride Carbon Dioxide BUN 25 H Creatinine 0.6 L Glucose 176 H POC Glucose 198 H Lactic Acid Calcium Ionized Calcium Phosphorus Magnesium Total Bilirubin AST ALT Alkaline Phosphatase Ammonia Total Creatine Kinase CK-MB (CK-2) CK-MB (CK-2) Rel Index Total Protein Albumin Urine WBC (Auto) Vancomycin Trough Salicylates Acetaminophen Plasma/Serum Alcohol Crossmatch 11/28/19 11/28/19 11/29/19 05:02 18:55 10:43 WBC 15.2 H 19.0 H RBC 3.06 L 3.01 L Hgb 8.3 L 8.3 L Hct 27.0 L 26.4 L MCH 27 L RDW 19.0 H 19.7 H Plt Count 479 H 611 H Lymph % (Auto) [place] % (Auto) [place] # Baso # Seg Neutrophils % Seg Neuts % (Manual) 92.0 H Lymphocytes % (Manual) 2.0 L Monocytes % (Manual) Seg Neutrophils # Seg Neutrophils # Man 14.0 H Lymphocytes # (Manual) 0.3 L Monocytes # (Manual) Eosinophils # (Manual) Basophils # (Manual) PT INR APTT ABG pH ABG pO2 ABG HCO3 ABG O2 Saturation ABG Base Excess ABG Hemoglobin Oxyhemoglobin Sodium Potassium Chloride Carbon Dioxide BUN Creatinine Glucose POC Glucose 138 H Lactic Acid Calcium Ionized Calcium Phosphorus Magnesium Total Bilirubin AST ALT Alkaline Phosphatase Ammonia Total Creatine Kinase CK-MB (CK-2) CK-MB (CK-2) Rel Index Total Protein Albumin Urine WBC (Auto) Vancomycin Trough Salicylates Acetaminophen Plasma/Serum Alcohol Crossmatch 11/29/19 11/29/19 11/29/19 10:43 12:27 19:25 WBC RBC Hgb Hct MCH RDW Plt Count Lymph % (Auto) [place] % (Auto) [place] # Baso # Seg Neutrophils % Seg Neuts % (Manual) Lymphocytes % (Manual) Monocytes % (Manual) Seg Neutrophils # Seg Neutrophils # Man Lymphocytes # (Manual) Monocytes # (Manual) Eosinophils # (Manual) Basophils # (Manual) PT INR APTT ABG pH ABG pO2 ABG HCO3 ABG O2 Saturation ABG Base Excess ABG Hemoglobin Oxyhemoglobin Sodium Potassium 2.8 L* Chloride Carbon Dioxide BUN 20 H Creatinine 0.5 L Glucose 121 H POC Glucose 128 H 120 H Lactic Acid Calcium Ionized Calcium Phosphorus Magnesium Total Bilirubin AST ALT Alkaline Phosphatase Ammonia Total Creatine Kinase CK-MB (CK-2) CK-MB (CK-2) Rel Index Total Protein Albumin Urine WBC (Auto) Vancomycin Trough Salicylates Acetaminophen Plasma/Serum Alcohol Crossmatch 11/29/19 11/30/19 11/30/19 23:46 04:10 05:02 WBC RBC Hgb Hct MCH RDW Plt Count Lymph % (Auto) [place] % (Auto) [place] # Baso # Seg Neutrophils % Seg Neuts % (Manual) Lymphocytes % (Manual) Monocytes % (Manual) Seg Neutrophils # Seg Neutrophils # Man Lymphocytes # (Manual) Monocytes # (Manual) Eosinophils # (Manual) Basophils # (Manual) PT INR APTT ABG pH ABG pO2 76.3 L ABG HCO3 32.5 H ABG O2 Saturation ABG Base Excess 6.9 H ABG Hemoglobin 8.0 L Oxyhemoglobin 92.6 L Sodium Potassium Chloride Carbon Dioxide BUN Creatinine Glucose POC Glucose 116 H 128 H Lactic Acid Calcium Ionized Calcium Phosphorus Magnesium Total Bilirubin AST ALT Alkaline Phosphatase Ammonia Total Creatine Kinase CK-MB (CK-2) CK-MB (CK-2) Rel Index Total Protein Albumin Urine WBC (Auto) Vancomycin Trough Salicylates Acetaminophen Plasma/Serum Alcohol Crossmatch 11/30/19 11/30/19 11/30/19 05:25 05:25 12:59 WBC 18.4 H RBC 3.10 L Hgb 8.5 L Hct 27.5 L MCH 27 L RDW 20.9 H Plt Count 691 H Lymph % (Auto) 7.1 L [place] % (Auto) 7.7 H [place] # 1.4 H Baso # Seg Neutrophils % 83.4 H Seg Neuts % (Manual) Lymphocytes % (Manual) Monocytes % (Manual) Seg Neutrophils # 15.4 H Seg Neutrophils # Man Lymphocytes # (Manual) Monocytes # (Manual) Eosinophils # (Manual) Basophils # (Manual) PT INR APTT ABG pH ABG pO2 ABG HCO3 ABG O2 Saturation ABG Base Excess ABG Hemoglobin Oxyhemoglobin Sodium 146 H Potassium Chloride 107.2 H Carbon Dioxide BUN Creatinine 0.5 L Glucose 132 H POC Glucose 124 H Lactic Acid Calcium Ionized Calcium Phosphorus Magnesium Total Bilirubin AST 246 H ALT 274 H Alkaline Phosphatase 203 H Ammonia Total Creatine Kinase CK-MB (CK-2) CK-MB (CK-2) Rel Index Total Protein 5.4 L Albumin 2.9 L Urine WBC (Auto) Vancomycin Trough Salicylates Acetaminophen Plasma/Serum Alcohol Crossmatch 11/30/19 12/01/19 12/01/19 17:53 00:05 05:10 WBC RBC Hgb Hct MCH RDW Plt Count Lymph % (Auto) [place] % (Auto) [place] # Baso # Seg Neutrophils % Seg Neuts % (Manual) Lymphocytes % (Manual) Monocytes % (Manual) Seg Neutrophils # Seg Neutrophils # Man Lymphocytes # (Manual) Monocytes # (Manual) Eosinophils # (Manual) Basophils # (Manual) PT INR APTT ABG pH ABG pO2 ABG HCO3 ABG O2 Saturation ABG Base Excess ABG Hemoglobin Oxyhemoglobin Sodium Potassium Chloride Carbon Dioxide BUN Creatinine Glucose POC Glucose 113 H 143 H 145 H Lactic Acid Calcium Ionized Calcium Phosphorus Magnesium Total Bilirubin AST ALT Alkaline Phosphatase Ammonia Total Creatine Kinase CK-MB (CK-2) CK-MB (CK-2) Rel Index Total Protein Albumin Urine WBC (Auto) Vancomycin Trough Salicylates Acetaminophen Plasma/Serum Alcohol Crossmatch 12/01/19 12/01/19 12/01/19 05:33 08:23 08:23 WBC 22.7 H RBC 2.88 L Hgb 7.9 L Hct 25.2 L MCH 27 L RDW 21.0 H Plt Count 732 H Lymph % (Auto) [place] % (Auto) [place] # Baso # Seg Neutrophils % Seg Neuts % (Manual) 91.0 H Lymphocytes % (Manual) 3.0 L Monocytes % (Manual) Seg Neutrophils # Seg Neutrophils # Man 20.7 H Lymphocytes # (Manual) 0.7 L Monocytes # (Manual) 1.1 H Eosinophils # (Manual) Basophils # (Manual) PT INR APTT ABG pH ABG pO2 68.6 L ABG HCO3 34.1 H ABG O2 Saturation ABG Base Excess 9.0 H ABG Hemoglobin 6.5 L Oxyhemoglobin 94.7 L Sodium Potassium Chloride Carbon Dioxide BUN Creatinine 0.5 L Glucose 125 H POC Glucose Lactic Acid Calcium Ionized Calcium Phosphorus Magnesium Total Bilirubin AST ALT Alkaline Phosphatase Ammonia Total Creatine Kinase CK-MB (CK-2) CK-MB (CK-2) Rel Index Total Protein Albumin Urine WBC (Auto) Vancomycin Trough Salicylates Acetaminophen Plasma/Serum Alcohol Crossmatch 12/01/19 12/01/19 12/01/19 13:21 17:54 20:59 WBC RBC Hgb Hct MCH RDW Plt Count Lymph % (Auto) [place] % (Auto) [place] # Baso # Seg Neutrophils % Seg Neuts % (Manual) Lymphocytes % (Manual) Monocytes % (Manual) Seg Neutrophils # Seg Neutrophils # Man Lymphocytes # (Manual) Monocytes # (Manual) Eosinophils # (Manual) Basophils # (Manual) PT INR APTT ABG pH ABG pO2 78.3 L ABG HCO3 33.8 H ABG O2 Saturation 94.9 L ABG Base Excess 7.9 H ABG Hemoglobin 11.5 L Oxyhemoglobin 92.3 L Sodium Potassium Chloride Carbon Dioxide BUN Creatinine Glucose POC Glucose 111 H 115 H Lactic Acid Calcium Ionized Calcium Phosphorus Magnesium Total Bilirubin AST ALT Alkaline Phosphatase Ammonia Total Creatine Kinase CK-MB (CK-2) CK-MB (CK-2) Rel Index Total Protein Albumin Urine WBC (Auto) Vancomycin Trough Salicylates Acetaminophen Plasma/Serum Alcohol Crossmatch 12/02/19 12/03/19 12/04/19 12:55 20:00 04:26 WBC 15.2 H RBC 2.69 L Hgb 7.4 L Hct 23.6 L MCH 27 L RDW 19.9 H Plt Count 838 H Lymph % (Auto) [place] % (Auto) [place] # Baso # Seg Neutrophils % Seg Neuts % (Manual) Lymphocytes % (Manual) Monocytes % (Manual) Seg Neutrophils # Seg Neutrophils # Man Lymphocytes # (Manual) Monocytes # (Manual) Eosinophils # (Manual) Basophils # (Manual) PT INR APTT ABG pH ABG pO2 68.3 L ABG HCO3 33.5 H ABG O2 Saturation 93.5 L ABG Base Excess 8.4 H ABG Hemoglobin 7.3 L Oxyhemoglobin 90.9 L Sodium Potassium Chloride Carbon Dioxide BUN Creatinine Glucose POC Glucose 107 H Lactic Acid Calcium Ionized Calcium Phosphorus Magnesium Total Bilirubin AST ALT Alkaline Phosphatase Ammonia Total Creatine Kinase CK-MB (CK-2) CK-MB (CK-2) Rel Index Total Protein Albumin Urine WBC (Auto) Vancomycin Trough Salicylates Acetaminophen Plasma/Serum Alcohol Crossmatch 12/04/19 12/04/19 12/04/19 04:26 07:45 12:02 WBC 15.9 H RBC 2.88 L Hgb 7.9 L Hct 25.1 L MCH RDW 20.4 H Plt Count 839 H Lymph % (Auto) 11.3 L [place] % (Auto) 15.2 H [place] # 2.4 H Baso # Seg Neutrophils % 72.4 H Seg Neuts % (Manual) Lymphocytes % (Manual) Monocytes % (Manual) Seg Neutrophils # 11.5 H Seg Neutrophils # Man Lymphocytes # (Manual) Monocytes # (Manual) Eosinophils # (Manual) Basophils # (Manual) PT INR APTT ABG pH ABG pO2 ABG HCO3 ABG O2 Saturation ABG Base Excess ABG Hemoglobin Oxyhemoglobin Sodium Potassium Chloride 96.5 L Carbon Dioxide BUN 21 H Creatinine 0.6 L Glucose 107 H POC Glucose 138 H Lactic Acid Calcium Ionized Calcium Phosphorus Magnesium Total Bilirubin AST ALT Alkaline Phosphatase Ammonia Total Creatine Kinase CK-MB (CK-2) CK-MB (CK-2) Rel Index Total Protein Albumin Urine WBC (Auto) Vancomycin Trough Salicylates Acetaminophen Plasma/Serum Alcohol Crossmatch 12/04/19 12/05/19 12/05/19 18:16 11:55 18:36 WBC RBC Hgb Hct MCH RDW Plt Count Lymph % (Auto) [place] % (Auto) [place] # Baso # Seg Neutrophils % Seg Neuts % (Manual) Lymphocytes % (Manual) Monocytes % (Manual) Seg Neutrophils # Seg Neutrophils # Man Lymphocytes # (Manual) Monocytes # (Manual) Eosinophils # (Manual) Basophils # (Manual) PT INR APTT ABG pH ABG pO2 ABG HCO3 ABG O2 Saturation ABG Base Excess ABG Hemoglobin Oxyhemoglobin Sodium Potassium Chloride Carbon Dioxide BUN Creatinine Glucose POC Glucose 135 H 125 H 135 H Lactic Acid Calcium Ionized Calcium Phosphorus Magnesium Total Bilirubin AST ALT Alkaline Phosphatase Ammonia Total Creatine Kinase CK-MB (CK-2) CK-MB (CK-2) Rel Index Total Protein Albumin Urine WBC (Auto) Vancomycin Trough Salicylates Acetaminophen Plasma/Serum Alcohol Crossmatch 12/05/19 12/06/19 12/06/19 23:30 04:14 05:43 WBC RBC Hgb Hct MCH RDW Plt Count Lymph % (Auto) [place] % (Auto) [place] # Baso # Seg Neutrophils % Seg Neuts % (Manual) Lymphocytes % (Manual) Monocytes % (Manual) Seg Neutrophils # Seg Neutrophils # Man Lymphocytes # (Manual) Monocytes # (Manual) Eosinophils # (Manual) Basophils # (Manual) PT INR APTT ABG pH ABG pO2 ABG HCO3 ABG O2 Saturation ABG Base Excess ABG Hemoglobin Oxyhemoglobin Sodium Potassium 5.6 H Chloride 95.0 L Carbon Dioxide BUN 48 H Creatinine 1.3 H D Glucose POC Glucose 126 H 121 H Lactic Acid Calcium Ionized Calcium Phosphorus Magnesium Total Bilirubin AST 89 H ALT 98 H Alkaline Phosphatase 476 H Ammonia Total Creatine Kinase CK-MB (CK-2) CK-MB (CK-2) Rel Index Total Protein Albumin 2.8 L Urine WBC (Auto) Vancomycin Trough Salicylates Acetaminophen Plasma/Serum Alcohol Crossmatch 12/06/19 12/06/19 12/07/19 10:39 14:34 00:19 WBC 17.3 H RBC 2.60 L Hgb 7.1 L Hct 22.7 L MCH 27 L RDW 20.1 H Plt Count 832 H Lymph % (Auto) [place] % (Auto) [place] # Baso # Seg Neutrophils % Seg Neuts % (Manual) Lymphocytes % (Manual) Monocytes % (Manual) Seg Neutrophils # Seg Neutrophils # Man Lymphocytes # (Manual) Monocytes # (Manual) Eosinophils # (Manual) Basophils # (Manual) PT INR APTT ABG pH ABG pO2 ABG HCO3 ABG O2 Saturation ABG Base Excess ABG Hemoglobin Oxyhemoglobin Sodium Potassium Chloride Carbon Dioxide BUN Creatinine Glucose POC Glucose 128 H 136 H Lactic Acid Calcium Ionized Calcium Phosphorus Magnesium Total Bilirubin AST ALT Alkaline Phosphatase Ammonia Total Creatine Kinase CK-MB (CK-2) CK-MB (CK-2) Rel Index Total Protein Albumin Urine WBC (Auto) Vancomycin Trough Salicylates Acetaminophen Plasma/Serum Alcohol Crossmatch 12/07/19 12/07/19 12/07/19 03:44 03:44 05:53 WBC 16.2 H RBC 2.56 L Hgb 7.1 L Hct 22.3 L MCH RDW 19.4 H Plt Count 782 H Lymph % (Auto) [place] % (Auto) [place] # Baso # Seg Neutrophils % Seg Neuts % (Manual) Lymphocytes % (Manual) Monocytes % (Manual) Seg Neutrophils # Seg Neutrophils # Man Lymphocytes # (Manual) Monocytes # (Manual) Eosinophils # (Manual) Basophils # (Manual) PT INR APTT ABG pH ABG pO2 ABG HCO3 ABG O2 Saturation ABG Base Excess ABG Hemoglobin Oxyhemoglobin Sodium Potassium Chloride 95.6 L Carbon Dioxide BUN 56 H Creatinine 1.4 H Glucose 120 H POC Glucose 128 H Lactic Acid Calcium 10.3 H Ionized Calcium Phosphorus Magnesium Total Bilirubin AST ALT Alkaline Phosphatase Ammonia Total Creatine Kinase CK-MB (CK-2) CK-MB (CK-2) Rel Index Total Protein Albumin Urine WBC (Auto) Vancomycin Trough Salicylates Acetaminophen Plasma/Serum Alcohol Crossmatch 12/07/19 12/07/19 12/08/19 12:54 23:47 00:20 WBC RBC Hgb Hct MCH RDW Plt Count Lymph % (Auto) [place] % (Auto) [place] # Baso # Seg Neutrophils % Seg Neuts % (Manual) Lymphocytes % (Manual) Monocytes % (Manual) Seg Neutrophils # Seg Neutrophils # Man Lymphocytes # (Manual) Monocytes # (Manual) Eosinophils # (Manual) Basophils # (Manual) PT INR APTT ABG pH ABG pO2 ABG HCO3 ABG O2 Saturation ABG Base Excess ABG Hemoglobin Oxyhemoglobin Sodium Potassium Chloride Carbon Dioxide BUN Creatinine Glucose POC Glucose 128 H 130 H 124 H Lactic Acid Calcium Ionized Calcium Phosphorus Magnesium Total Bilirubin AST ALT Alkaline Phosphatase Ammonia Total Creatine Kinase CK-MB (CK-2) CK-MB (CK-2) Rel Index Total Protein Albumin Urine WBC (Auto) Vancomycin Trough Salicylates Acetaminophen Plasma/Serum Alcohol Crossmatch 12/08/19 12/08/19 12/08/19 06:38 12:04 18:26 WBC RBC Hgb Hct MCH RDW Plt Count Lymph % (Auto) [place] % (Auto) [place] # Baso # Seg Neutrophils % Seg Neuts % (Manual) Lymphocytes % (Manual) Monocytes % (Manual) Seg Neutrophils # Seg Neutrophils # Man Lymphocytes # (Manual) Monocytes # (Manual) Eosinophils # (Manual) Basophils # (Manual) PT INR APTT ABG pH ABG pO2 ABG HCO3 ABG O2 Saturation ABG Base Excess ABG Hemoglobin Oxyhemoglobin Sodium Potassium Chloride Carbon Dioxide BUN Creatinine Glucose POC Glucose 137 H 129 H 150 H Lactic Acid Calcium Ionized Calcium Phosphorus Magnesium Total Bilirubin AST ALT Alkaline Phosphatase Ammonia Total Creatine Kinase CK-MB (CK-2) CK-MB (CK-2) Rel Index Total Protein Albumin Urine WBC (Auto) Vancomycin Trough Salicylates Acetaminophen Plasma/Serum Alcohol Crossmatch 12/09/19 12/09/19 12/09/19 00:56 05:34 06:13 WBC RBC Hgb Hct MCH RDW Plt Count Lymph % (Auto) [place] % (Auto) [place] # Baso # Seg Neutrophils % Seg Neuts % (Manual) Lymphocytes % (Manual) Monocytes % (Manual) Seg Neutrophils # Seg Neutrophils # Man Lymphocytes # (Manual) Monocytes # (Manual) Eosinophils # (Manual) Basophils # (Manual) PT INR APTT ABG pH ABG pO2 ABG HCO3 ABG O2 Saturation ABG Base Excess ABG Hemoglobin Oxyhemoglobin Sodium 146 H Potassium Chloride Carbon Dioxide BUN 66 H Creatinine 1.9 H Glucose 116 H POC Glucose 130 H 130 H Lactic Acid Calcium Ionized Calcium Phosphorus Magnesium Total Bilirubin AST ALT Alkaline Phosphatase Ammonia Total Creatine Kinase CK-MB (CK-2) CK-MB (CK-2) Rel Index Total Protein Albumin Urine WBC (Auto) Vancomycin Trough Salicylates Acetaminophen Plasma/Serum Alcohol Crossmatch 12/09/19 12/09/19 12/10/19 11:52 17:50 00:14 WBC RBC Hgb Hct MCH RDW Plt Count Lymph % (Auto) [place] % (Auto) [place] # Baso # Seg Neutrophils % Seg Neuts % (Manual) Lymphocytes % (Manual) Monocytes % (Manual) Seg Neutrophils # Seg Neutrophils # Man Lymphocytes # (Manual) Monocytes # (Manual) Eosinophils # (Manual) Basophils # (Manual) PT INR APTT ABG pH ABG pO2 ABG HCO3 ABG O2 Saturation ABG Base Excess ABG Hemoglobin Oxyhemoglobin Sodium Potassium Chloride Carbon Dioxide BUN Creatinine Glucose POC Glucose 135 H 120 H 116 H Lactic Acid Calcium Ionized Calcium Phosphorus Magnesium Total Bilirubin AST ALT Alkaline Phosphatase Ammonia Total Creatine Kinase CK-MB (CK-2) CK-MB (CK-2) Rel Index Total Protein Albumin Urine WBC (Auto) Vancomycin Trough Salicylates Acetaminophen Plasma/Serum Alcohol Crossmatch 12/10/19 12/10/19 12/10/19 05:38 11:38 17:34 WBC RBC Hgb Hct MCH RDW Plt Count Lymph % (Auto) [place] % (Auto) [place] # Baso # Seg Neutrophils % Seg Neuts % (Manual) Lymphocytes % (Manual) Monocytes % (Manual) Seg Neutrophils # Seg Neutrophils # Man Lymphocytes # (Manual) Monocytes # (Manual) Eosinophils # (Manual) Basophils # (Manual) PT INR APTT ABG pH ABG pO2 ABG HCO3 ABG O2 Saturation ABG Base Excess ABG Hemoglobin Oxyhemoglobin Sodium Potassium Chloride Carbon Dioxide BUN Creatinine Glucose POC Glucose 115 H 112 H 130 H Lactic Acid Calcium Ionized Calcium Phosphorus Magnesium Total Bilirubin AST ALT Alkaline Phosphatase Ammonia Total Creatine Kinase CK-MB (CK-2) CK-MB (CK-2) Rel Index Total Protein Albumin Urine WBC (Auto) Vancomycin Trough Salicylates Acetaminophen Plasma/Serum Alcohol Crossmatch 12/11/19 12/11/19 12/11/19 00:20 05:31 12:22 WBC RBC Hgb Hct MCH RDW Plt Count Lymph % (Auto) [place] % (Auto) [place] # Baso # Seg Neutrophils % Seg Neuts % (Manual) Lymphocytes % (Manual) Monocytes % (Manual) Seg Neutrophils # Seg Neutrophils # Man Lymphocytes # (Manual) Monocytes # (Manual) Eosinophils # (Manual) Basophils # (Manual) PT INR APTT ABG pH ABG pO2 ABG HCO3 ABG O2 Saturation ABG Base Excess ABG Hemoglobin Oxyhemoglobin Sodium Potassium Chloride Carbon Dioxide BUN Creatinine Glucose POC Glucose 124 H 132 H 128 H Lactic Acid Calcium Ionized Calcium Phosphorus Magnesium Total Bilirubin AST ALT Alkaline Phosphatase Ammonia Total Creatine Kinase CK-MB (CK-2) CK-MB (CK-2) Rel Index Total Protein Albumin Urine WBC (Auto) Vancomycin Trough Salicylates Acetaminophen Plasma/Serum Alcohol Crossmatch 12/11/19 12/11/19 12/12/19 18:04 23:42 03:51 WBC RBC Hgb Hct MCH RDW Plt Count Lymph % (Auto) [place] % (Auto) [place] # Baso # Seg Neutrophils % Seg Neuts % (Manual) Lymphocytes % (Manual) Monocytes % (Manual) Seg Neutrophils # Seg Neutrophils # Man Lymphocytes # (Manual) Monocytes # (Manual) Eosinophils # (Manual) Basophils # (Manual) PT INR APTT ABG pH ABG pO2 ABG HCO3 ABG O2 Saturation ABG Base Excess ABG Hemoglobin Oxyhemoglobin Sodium 149 H Potassium Chloride Carbon Dioxide 20 L D BUN 77 H Creatinine 2.8 H Glucose POC Glucose 133 H 154 H Lactic Acid Calcium Ionized Calcium Phosphorus Magnesium Total Bilirubin AST ALT Alkaline Phosphatase Ammonia Total Creatine Kinase CK-MB (CK-2) CK-MB (CK-2) Rel Index Total Protein Albumin Urine WBC (Auto) Vancomycin Trough Salicylates Acetaminophen Plasma/Serum Alcohol Crossmatch 12/12/19 12/12/19 12/12/19 05:18 05:26 10:30 WBC 18.0 H RBC 2.51 L Hgb 6.8 L Hct 22.0 L MCH 27 L RDW 19.9 H Plt Count 582 H Lymph % (Auto) [place] % (Auto) [place] # Baso # Seg Neutrophils % Seg Neuts % (Manual) Lymphocytes % (Manual) Monocytes % (Manual) Seg Neutrophils # Seg Neutrophils # Man Lymphocytes # (Manual) Monocytes # (Manual) Eosinophils # (Manual) Basophils # (Manual) PT INR APTT ABG pH ABG pO2 ABG HCO3 ABG O2 Saturation ABG Base Excess ABG Hemoglobin Oxyhemoglobin Sodium Potassium Chloride Carbon Dioxide BUN Creatinine Glucose POC Glucose 135 H Lactic Acid Calcium Ionized Calcium Phosphorus Magnesium Total Bilirubin AST ALT Alkaline Phosphatase Ammonia Total Creatine Kinase CK-MB (CK-2) CK-MB (CK-2) Rel Index Total Protein Albumin Urine WBC (Auto) Vancomycin Trough Salicylates Acetaminophen Plasma/Serum Alcohol Crossmatch See Detail 12/12/19 12/12/19 12/12/19 11:44 18:10 23:21 WBC RBC Hgb Hct MCH RDW Plt Count Lymph % (Auto) [place] % (Auto) [place] # Baso # Seg Neutrophils % Seg Neuts % (Manual) Lymphocytes % (Manual) Monocytes % (Manual) Seg Neutrophils # Seg Neutrophils # Man Lymphocytes # (Manual) Monocytes # (Manual) Eosinophils # (Manual) Basophils # (Manual) PT INR APTT ABG pH ABG pO2 ABG HCO3 ABG O2 Saturation ABG Base Excess ABG Hemoglobin Oxyhemoglobin Sodium Potassium Chloride Carbon Dioxide BUN Creatinine Glucose POC Glucose 108 H 107 H 126 H Lactic Acid Calcium Ionized Calcium Phosphorus Magnesium Total Bilirubin AST ALT Alkaline Phosphatase Ammonia Total Creatine Kinase CK-MB (CK-2) CK-MB (CK-2) Rel Index Total Protein Albumin Urine WBC (Auto) Vancomycin Trough Salicylates Acetaminophen Plasma/Serum Alcohol Crossmatch 12/13/19 12/13/19 12/13/19 05:41 07:48 07:48 WBC 38.3 H RBC 2.37 L Hgb 6.3 L Hct 20.9 L MCH 27 L RDW 20.2 H Plt Count 546 H Lymph % (Auto) [place] % (Auto) [place] # Baso # Seg Neutrophils % Seg Neuts % (Manual) 93.0 H Lymphocytes % (Manual) 1.0 L Monocytes % (Manual) Seg Neutrophils # Seg Neutrophils # Man 35.6 H Lymphocytes # (Manual) 0.4 L Monocytes # (Manual) Eosinophils # (Manual) Basophils # (Manual) 0.4 H PT INR APTT ABG pH ABG pO2 ABG HCO3 ABG O2 Saturation ABG Base Excess ABG Hemoglobin Oxyhemoglobin Sodium 152 H Potassium 3.1 L D Chloride 111.9 H Carbon Dioxide 21 L BUN 53 H Creatinine 1.9 H Glucose 141 H POC Glucose 128 H Lactic Acid Calcium Ionized Calcium Phosphorus Magnesium Total Bilirubin AST ALT Alkaline Phosphatase 316 H Ammonia Total Creatine Kinase CK-MB (CK-2) CK-MB (CK-2) Rel Index Total Protein Albumin 2.4 L Urine WBC (Auto) Vancomycin Trough Salicylates Acetaminophen Plasma/Serum Alcohol Crossmatch 12/13/19 12/13/19 12/14/19 18:17 23:19 05:36 WBC RBC Hgb Hct MCH RDW Plt Count Lymph % (Auto) [place] % (Auto) [place] # Baso # Seg Neutrophils % Seg Neuts % (Manual) Lymphocytes % (Manual) Monocytes % (Manual) Seg Neutrophils # Seg Neutrophils # Man Lymphocytes # (Manual) Monocytes # (Manual) Eosinophils # (Manual) Basophils # (Manual) PT INR APTT ABG pH ABG pO2 ABG HCO3 ABG O2 Saturation ABG Base Excess ABG Hemoglobin Oxyhemoglobin Sodium Potassium Chloride Carbon Dioxide BUN Creatinine Glucose POC Glucose 141 H 158 H 182 H Lactic Acid Calcium Ionized Calcium Phosphorus Magnesium Total Bilirubin AST ALT Alkaline Phosphatase Ammonia Total Creatine Kinase CK-MB (CK-2) CK-MB (CK-2) Rel Index Total Protein Albumin Urine WBC (Auto) Vancomycin Trough Salicylates Acetaminophen Plasma/Serum Alcohol Crossmatch 12/14/19 12/14/19 12/14/19 08:48 08:48 10:31 WBC 33.3 H RBC 2.70 L Hgb 7.9 L 8.0 L Hct 25.3 L 24.0 L MCH RDW 19.2 H Plt Count 476 H Lymph % (Auto) [place] % (Auto) [place] # Baso # Seg Neutrophils % Seg Neuts % (Manual) Lymphocytes % (Manual) Monocytes % (Manual) Seg Neutrophils # Seg Neutrophils # Man Lymphocytes # (Manual) Monocytes # (Manual) Eosinophils # (Manual) Basophils # (Manual) PT INR APTT ABG pH ABG pO2 ABG HCO3 ABG O2 Saturation ABG Base Excess ABG Hemoglobin Oxyhemoglobin Sodium 153 H Potassium 2.5 L* Chloride 114.9 H Carbon Dioxide 20 L BUN 38 H Creatinine 1.4 H Glucose 177 H POC Glucose Lactic Acid Calcium Ionized Calcium Phosphorus Magnesium Total Bilirubin AST ALT Alkaline Phosphatase Ammonia Total Creatine Kinase CK-MB (CK-2) CK-MB (CK-2) Rel Index Total Protein Albumin Urine WBC (Auto) Vancomycin Trough Salicylates Acetaminophen Plasma/Serum Alcohol Crossmatch 12/14/19 12/14/19 12/14/19 12:57 16:15 17:50 WBC RBC Hgb Hct MCH RDW Plt Count Lymph % (Auto) [place] % (Auto) [place] # Baso # Seg Neutrophils % Seg Neuts % (Manual) Lymphocytes % (Manual) Monocytes % (Manual) Seg Neutrophils # Seg Neutrophils # Man Lymphocytes # (Manual) Monocytes # (Manual) Eosinophils # (Manual) Basophils # (Manual) PT INR APTT ABG pH ABG pO2 73.6 L ABG HCO3 ABG O2 Saturation ABG Base Excess ABG Hemoglobin 7.6 L Oxyhemoglobin 94.0 L Sodium Potassium Chloride Carbon Dioxide BUN Creatinine Glucose POC Glucose 174 H 150 H Lactic Acid Calcium Ionized Calcium Phosphorus Magnesium Total Bilirubin AST ALT Alkaline Phosphatase Ammonia Total Creatine Kinase CK-MB (CK-2) CK-MB (CK-2) Rel Index Total Protein Albumin Urine WBC (Auto) Vancomycin Trough Salicylates Acetaminophen Plasma/Serum Alcohol Crossmatch 12/15/19 12/15/19 12/15/19 00:28 05:27 07:23 WBC 30.0 H RBC 3.11 L Hgb 8.6 L Hct 27.7 L MCH RDW 20.0 H Plt Count 473 H Lymph % (Auto) [place] % (Auto) [place] # Baso # Seg Neutrophils % Seg Neuts % (Manual) Lymphocytes % (Manual) Monocytes % (Manual) Seg Neutrophils # Seg Neutrophils # Man Lymphocytes # (Manual) Monocytes # (Manual) Eosinophils # (Manual) Basophils # (Manual) PT INR APTT ABG pH ABG pO2 ABG HCO3 ABG O2 Saturation ABG Base Excess ABG Hemoglobin Oxyhemoglobin Sodium Potassium Chloride Carbon Dioxide BUN Creatinine Glucose POC Glucose 167 H 148 H Lactic Acid Calcium Ionized Calcium Phosphorus Magnesium Total Bilirubin AST ALT Alkaline Phosphatase Ammonia Total Creatine Kinase CK-MB (CK-2) CK-MB (CK-2) Rel Index Total Protein Albumin Urine WBC (Auto) Vancomycin Trough Salicylates Acetaminophen Plasma/Serum Alcohol Crossmatch 12/15/19 12/15/19 12/15/19 07:23 12:21 17:41 WBC RBC Hgb Hct MCH RDW Plt Count Lymph % (Auto) [place] % (Auto) [place] # Baso # Seg Neutrophils % Seg Neuts % (Manual) Lymphocytes % (Manual) Monocytes % (Manual) Seg Neutrophils # Seg Neutrophils # Man Lymphocytes # (Manual) Monocytes # (Manual) Eosinophils # (Manual) Basophils # (Manual) PT INR APTT ABG pH ABG pO2 ABG HCO3 ABG O2 Saturation ABG Base Excess ABG Hemoglobin Oxyhemoglobin Sodium 147 H Potassium 3.5 L D Chloride 111.2 H Carbon Dioxide 19 L BUN 29 H Creatinine Glucose 126 H POC Glucose 154 H 144 H Lactic Acid Calcium Ionized Calcium Phosphorus Magnesium Total Bilirubin AST ALT Alkaline Phosphatase Ammonia Total Creatine Kinase CK-MB (CK-2) CK-MB (CK-2) Rel Index Total Protein Albumin Urine WBC (Auto) Vancomycin Trough Salicylates Acetaminophen Plasma/Serum Alcohol Crossmatch 12/16/19 12/16/19 12/16/19 00:22 05:30 05:44 WBC 30.8 H RBC 2.58 L Hgb 7.1 L Hct 22.7 L MCH RDW 19.6 H Plt Count 451 H Lymph % (Auto) [place] % (Auto) [place] # Baso # Seg Neutrophils % Seg Neuts % (Manual) Lymphocytes % (Manual) Monocytes % (Manual) Seg Neutrophils # Seg Neutrophils # Man Lymphocytes # (Manual) Monocytes # (Manual) Eosinophils # (Manual) Basophils # (Manual) PT INR APTT ABG pH ABG pO2 ABG HCO3 ABG O2 Saturation ABG Base Excess ABG Hemoglobin Oxyhemoglobin Sodium Potassium Chloride Carbon Dioxide BUN Creatinine Glucose POC Glucose 139 H 126 H Lactic Acid Calcium Ionized Calcium Phosphorus Magnesium Total Bilirubin AST ALT Alkaline Phosphatase Ammonia Total Creatine Kinase CK-MB (CK-2) CK-MB (CK-2) Rel Index Total Protein Albumin Urine WBC (Auto) Vancomycin Trough Salicylates Acetaminophen Plasma/Serum Alcohol Crossmatch 12/16/19 12/16/19 12/16/19 05:44 11:48 17:37 WBC RBC Hgb Hct MCH RDW Plt Count Lymph % (Auto) [place] % (Auto) [place] # Baso # Seg Neutrophils % Seg Neuts % (Manual) Lymphocytes % (Manual) Monocytes % (Manual) Seg Neutrophils # Seg Neutrophils # Man Lymphocytes # (Manual) Monocytes # (Manual) Eosinophils # (Manual) Basophils # (Manual) PT INR APTT ABG pH ABG pO2 ABG HCO3 ABG O2 Saturation ABG Base Excess ABG Hemoglobin Oxyhemoglobin Sodium Potassium 3.4 L Chloride 109.2 H Carbon Dioxide 19 L BUN 27 H Creatinine Glucose 124 H POC Glucose 125 H 148 H Lactic Acid Calcium Ionized Calcium Phosphorus Magnesium Total Bilirubin AST ALT Alkaline Phosphatase Ammonia Total Creatine Kinase CK-MB (CK-2) CK-MB (CK-2) Rel Index Total Protein Albumin Urine WBC (Auto) Vancomycin Trough Salicylates Acetaminophen Plasma/Serum Alcohol Crossmatch 12/16/19 12/17/19 12/17/19 23:43 05:28 12:47 WBC RBC Hgb Hct MCH RDW Plt Count Lymph % (Auto) [place] % (Auto) [place] # Baso # Seg Neutrophils % Seg Neuts % (Manual) Lymphocytes % (Manual) Monocytes % (Manual) Seg Neutrophils # Seg Neutrophils # Man Lymphocytes # (Manual) Monocytes # (Manual) Eosinophils # (Manual) Basophils # (Manual) PT INR APTT ABG pH ABG pO2 ABG HCO3 ABG O2 Saturation ABG Base Excess ABG Hemoglobin Oxyhemoglobin Sodium Potassium Chloride Carbon Dioxide BUN Creatinine Glucose POC Glucose 142 H 140 H 125 H Lactic Acid Calcium Ionized Calcium Phosphorus Magnesium Total Bilirubin AST ALT Alkaline Phosphatase Ammonia Total Creatine Kinase CK-MB (CK-2) CK-MB (CK-2) Rel Index Total Protein Albumin Urine WBC (Auto) Vancomycin Trough Salicylates Acetaminophen Plasma/Serum Alcohol Crossmatch 12/17/19 12/17/19 12/17/19 17:05 18:00 Unknown WBC RBC Hgb Hct MCH RDW Plt Count Lymph % (Auto) [place] % (Auto) [place] # Baso # Seg Neutrophils % Seg Neuts % (Manual) Lymphocytes % (Manual) Monocytes % (Manual) Seg Neutrophils # Seg Neutrophils # Man Lymphocytes # (Manual) Monocytes # (Manual) Eosinophils # (Manual) Basophils # (Manual) PT INR APTT ABG pH ABG pO2 68.1 L ABG HCO3 ABG O2 Saturation 93.7 L ABG Base Excess ABG Hemoglobin 5.0 L Oxyhemoglobin 91.7 L Sodium Potassium Chloride Carbon Dioxide BUN Creatinine Glucose POC Glucose 140 H Lactic Acid Calcium Ionized Calcium Phosphorus Magnesium Total Bilirubin AST ALT Alkaline Phosphatase Ammonia Total Creatine Kinase CK-MB (CK-2) CK-MB (CK-2) Rel Index Total Protein Albumin Urine WBC (Auto) Vancomycin Trough Salicylates Acetaminophen Plasma/Serum Alcohol Crossmatch 12/18/19 12/18/19 12/18/19 00:16 04:53 04:53 WBC 28.6 H RBC 2.27 L Hgb 6.3 L Hct 19.5 L* MCH RDW 20.0 H Plt Count 497 H Lymph % (Auto) [place] % (Auto) [place] # Baso # Seg Neutrophils % Seg Neuts % (Manual) Lymphocytes % (Manual) Monocytes % (Manual) Seg Neutrophils # Seg Neutrophils # Man Lymphocytes # (Manual) Monocytes # (Manual) Eosinophils # (Manual) Basophils # (Manual) PT INR APTT ABG pH ABG pO2 ABG HCO3 ABG O2 Saturation ABG Base Excess ABG Hemoglobin Oxyhemoglobin Sodium Potassium Chloride 107.9 H Carbon Dioxide 20 L BUN 27 H Creatinine 0.6 L Glucose 116 H POC Glucose 123 H Lactic Acid Calcium Ionized Calcium Phosphorus Magnesium Total Bilirubin AST ALT Alkaline Phosphatase Ammonia Total Creatine Kinase CK-MB (CK-2) CK-MB (CK-2) Rel Index Total Protein Albumin Urine WBC (Auto) Vancomycin Trough Salicylates Acetaminophen Plasma/Serum Alcohol Crossmatch 12/18/19 12/18/19 12/18/19 06:38 11:22 12:08 WBC RBC Hgb Hct MCH RDW Plt Count Lymph % (Auto) [place] % (Auto) [place] # Baso # Seg Neutrophils % Seg Neuts % (Manual) Lymphocytes % (Manual) Monocytes % (Manual) Seg Neutrophils # Seg Neutrophils # Man Lymphocytes # (Manual) Monocytes # (Manual) Eosinophils # (Manual) Basophils # (Manual) PT INR APTT ABG pH ABG pO2 ABG HCO3 ABG O2 Saturation ABG Base Excess ABG Hemoglobin Oxyhemoglobin Sodium Potassium Chloride Carbon Dioxide BUN Creatinine Glucose POC Glucose 120 H 127 H Lactic Acid Calcium Ionized Calcium Phosphorus Magnesium Total Bilirubin AST ALT Alkaline Phosphatase Ammonia Total Creatine Kinase CK-MB (CK-2) CK-MB (CK-2) Rel Index Total Protein Albumin Urine WBC (Auto) Vancomycin Trough Salicylates Acetaminophen Plasma/Serum Alcohol Crossmatch See Detail 12/18/19 12/18/19 12/18/19 14:05 17:49 23:53 WBC RBC Hgb Hct MCH RDW Plt Count Lymph % (Auto) [place] % (Auto) [place] # Baso # Seg Neutrophils % Seg Neuts % (Manual) Lymphocytes % (Manual) Monocytes % (Manual) Seg Neutrophils # Seg Neutrophils # Man Lymphocytes # (Manual) Monocytes # (Manual) Eosinophils # (Manual) Basophils # (Manual) PT INR APTT ABG pH 7.267 L ABG pO2 69.8 L ABG HCO3 ABG O2 Saturation 88.4 L ABG Base Excess ABG Hemoglobin 7.1 L Oxyhemoglobin 86.4 L Sodium Potassium Chloride Carbon Dioxide BUN Creatinine Glucose POC Glucose 157 H 128 H Lactic Acid Calcium Ionized Calcium Phosphorus Magnesium Total Bilirubin AST ALT Alkaline Phosphatase Ammonia Total Creatine Kinase CK-MB (CK-2) CK-MB (CK-2) Rel Index Total Protein Albumin Urine WBC (Auto) Vancomycin Trough Salicylates Acetaminophen Plasma/Serum Alcohol Crossmatch 12/19/19 12/19/19 12/19/19 03:37 03:37 05:25 WBC 31.3 H RBC 2.60 L Hgb 7.6 L Hct 23.0 L MCH RDW 19.4 H Plt Count 530 H Lymph % (Auto) [place] % (Auto) [place] # Baso # Seg Neutrophils % Seg Neuts % (Manual) Lymphocytes % (Manual) Monocytes % (Manual) Seg Neutrophils # Seg Neutrophils # Man Lymphocytes # (Manual) Monocytes # (Manual) Eosinophils # (Manual) Basophils # (Manual) PT INR APTT ABG pH ABG pO2 ABG HCO3 ABG O2 Saturation ABG Base Excess ABG Hemoglobin Oxyhemoglobin Sodium Potassium Chloride Carbon Dioxide 18 L BUN 36 H Creatinine Glucose 111 H POC Glucose 123 H Lactic Acid Calcium Ionized Calcium Phosphorus Magnesium Total Bilirubin AST ALT Alkaline Phosphatase Ammonia Total Creatine Kinase CK-MB (CK-2) CK-MB (CK-2) Rel Index Total Protein Albumin Urine WBC (Auto) Vancomycin Trough Salicylates Acetaminophen Plasma/Serum Alcohol Crossmatch 12/19/19 12/19/19 12/20/19 12:59 18:33 00:00 WBC RBC Hgb Hct MCH RDW Plt Count Lymph % (Auto) [place] % (Auto) [place] # Baso # Seg Neutrophils % Seg Neuts % (Manual) Lymphocytes % (Manual) Monocytes % (Manual) Seg Neutrophils # Seg Neutrophils # Man Lymphocytes # (Manual) Monocytes # (Manual) Eosinophils # (Manual) Basophils # (Manual) PT INR APTT ABG pH ABG pO2 ABG HCO3 ABG O2 Saturation ABG Base Excess ABG Hemoglobin Oxyhemoglobin Sodium Potassium Chloride Carbon Dioxide BUN Creatinine Glucose POC Glucose 130 H 118 H 135 H Lactic Acid Calcium Ionized Calcium Phosphorus Magnesium Total Bilirubin AST ALT Alkaline Phosphatase Ammonia Total Creatine Kinase CK-MB (CK-2) CK-MB (CK-2) Rel Index Total Protein Albumin Urine WBC (Auto) Vancomycin Trough Salicylates Acetaminophen Plasma/Serum Alcohol Crossmatch 12/20/19 12/20/19 12/20/19 05:46 12:31 18:07 WBC RBC Hgb Hct MCH RDW Plt Count Lymph % (Auto) [place] % (Auto) [place] # Baso # Seg Neutrophils % Seg Neuts % (Manual) Lymphocytes % (Manual) Monocytes % (Manual) Seg Neutrophils # Seg Neutrophils # Man Lymphocytes # (Manual) Monocytes # (Manual) Eosinophils # (Manual) Basophils # (Manual) PT INR APTT ABG pH ABG pO2 ABG HCO3 ABG O2 Saturation ABG Base Excess ABG Hemoglobin Oxyhemoglobin Sodium Potassium Chloride Carbon Dioxide BUN Creatinine Glucose POC Glucose 131 H 128 H 134 H Lactic Acid Calcium Ionized Calcium Phosphorus Magnesium Total Bilirubin AST ALT Alkaline Phosphatase Ammonia Total Creatine Kinase CK-MB (CK-2) CK-MB (CK-2) Rel Index Total Protein Albumin Urine WBC (Auto) Vancomycin Trough Salicylates Acetaminophen Plasma/Serum Alcohol Crossmatch 12/21/19 12/21/19 12/21/19 03:28 03:28 07:21 WBC 29.4 H RBC 2.30 L Hgb 6.8 L Hct 20.2 L MCH RDW 20.2 H Plt Count 746 H Lymph % (Auto) [place] % (Auto) [place] # Baso # Seg Neutrophils % Seg Neuts % (Manual) 85.0 H Lymphocytes % (Manual) 8.0 L Monocytes % (Manual) Seg Neutrophils # Seg Neutrophils # Man 25.0 H Lymphocytes # (Manual) Monocytes # (Manual) 1.5 H Eosinophils # (Manual) 0.6 H Basophils # (Manual) PT INR APTT ABG pH ABG pO2 ABG HCO3 ABG O2 Saturation ABG Base Excess ABG Hemoglobin Oxyhemoglobin Sodium Potassium Chloride Carbon Dioxide 17 L BUN 57 H Creatinine 1.4 H D Glucose POC Glucose 124 H Lactic Acid Calcium Ionized Calcium Phosphorus Magnesium Total Bilirubin AST ALT Alkaline Phosphatase Ammonia Total Creatine Kinase CK-MB (CK-2) CK-MB (CK-2) Rel Index Total Protein Albumin Urine WBC (Auto) Vancomycin Trough Salicylates Acetaminophen Plasma/Serum Alcohol Crossmatch 12/21/19 12/21/19 12/21/19 08:56 12:06 14:53 WBC RBC Hgb 7.2 L Hct 22.9 L MCH RDW Plt Count Lymph % (Auto) [place] % (Auto) [place] # Baso # Seg Neutrophils % Seg Neuts % (Manual) Lymphocytes % (Manual) Monocytes % (Manual) Seg Neutrophils # Seg Neutrophils # Man Lymphocytes # (Manual) Monocytes # (Manual) Eosinophils # (Manual) Basophils # (Manual) PT INR APTT ABG pH ABG pO2 ABG HCO3 ABG O2 Saturation ABG Base Excess ABG Hemoglobin Oxyhemoglobin Sodium Potassium Chloride Carbon Dioxide BUN Creatinine Glucose POC Glucose 116 H Lactic Acid Calcium Ionized Calcium Phosphorus Magnesium Total Bilirubin AST ALT Alkaline Phosphatase Ammonia Total Creatine Kinase CK-MB (CK-2) CK-MB (CK-2) Rel Index Total Protein Albumin Urine WBC (Auto) Vancomycin Trough 33.8 H Salicylates Acetaminophen Plasma/Serum Alcohol Crossmatch 12/21/19 12/21/19 12/21/19 14:54 17:27 23:49 WBC RBC Hgb Hct MCH RDW Plt Count Lymph % (Auto) [place] % (Auto) [place] # Baso # Seg Neutrophils % Seg Neuts % (Manual) Lymphocytes % (Manual) Monocytes % (Manual) Seg Neutrophils # Seg Neutrophils # Man Lymphocytes # (Manual) Monocytes # (Manual) Eosinophils # (Manual) Basophils # (Manual) PT INR APTT ABG pH ABG pO2 ABG HCO3 ABG O2 Saturation ABG Base Excess ABG Hemoglobin Oxyhemoglobin Sodium Potassium Chloride Carbon Dioxide BUN Creatinine Glucose POC Glucose 145 H 127 H Lactic Acid Calcium Ionized Calcium Phosphorus Magnesium Total Bilirubin AST ALT Alkaline Phosphatase Ammonia Total Creatine Kinase CK-MB (CK-2) CK-MB (CK-2) Rel Index Total Protein Albumin Urine WBC (Auto) Vancomycin Trough Salicylates Acetaminophen Plasma/Serum Alcohol Crossmatch See Detail 12/22/19 12/22/19 12/22/19 04:43 05:56 08:40 WBC RBC Hgb Hct MCH RDW Plt Count Lymph % (Auto) [place] % (Auto) [place] # Baso # Seg Neutrophils % Seg Neuts % (Manual) Lymphocytes % (Manual) Monocytes % (Manual) Seg Neutrophils # Seg Neutrophils # Man Lymphocytes # (Manual) Monocytes # (Manual) Eosinophils # (Manual) Basophils # (Manual) PT INR APTT ABG pH ABG pO2 75.6 L ABG HCO3 ABG O2 Saturation ABG Base Excess -2.6 L ABG Hemoglobin 6.8 L Oxyhemoglobin 94.6 L Sodium Potassium Chloride Carbon Dioxide 17 L BUN 60 H Creatinine 1.4 H Glucose 126 H POC Glucose 153 H Lactic Acid Calcium Ionized Calcium Phosphorus Magnesium Total Bilirubin AST ALT Alkaline Phosphatase Ammonia Total Creatine Kinase CK-MB (CK-2) CK-MB (CK-2) Rel Index Total Protein Albumin Urine WBC (Auto) Vancomycin Trough Salicylates Acetaminophen Plasma/Serum Alcohol Crossmatch 12/22/19 12/22/19 12/23/19 12:07 17:49 04:30 WBC 22.4 H RBC 2.68 L Hgb 7.6 L Hct 22.9 L MCH RDW 19.9 H Plt Count 998 H Lymph % (Auto) [place] % (Auto) [place] # Baso # Seg Neutrophils % Seg Neuts % (Manual) 88.0 H Lymphocytes % (Manual) 2.0 L Monocytes % (Manual) 9.0 H Seg Neutrophils # Seg Neutrophils # Man 19.7 H Lymphocytes # (Manual) 0.4 L Monocytes # (Manual) 2.0 H Eosinophils # (Manual) Basophils # (Manual) PT INR APTT ABG pH ABG pO2 ABG HCO3 ABG O2 Saturation ABG Base Excess ABG Hemoglobin Oxyhemoglobin Sodium Potassium Chloride Carbon Dioxide BUN Creatinine Glucose POC Glucose 140 H 116 H Lactic Acid Calcium Ionized Calcium Phosphorus Magnesium Total Bilirubin AST ALT Alkaline Phosphatase Ammonia Total Creatine Kinase CK-MB (CK-2) CK-MB (CK-2) Rel Index Total Protein Albumin Urine WBC (Auto) Vancomycin Trough Salicylates Acetaminophen Plasma/Serum Alcohol Crossmatch 12/23/19 12/23/19 12/23/19 04:30 12:00 18:06 WBC RBC Hgb Hct MCH RDW Plt Count Lymph % (Auto) [place] % (Auto) [place] # Baso # Seg Neutrophils % Seg Neuts % (Manual) Lymphocytes % (Manual) Monocytes % (Manual) Seg Neutrophils # Seg Neutrophils # Man Lymphocytes # (Manual) Monocytes # (Manual) Eosinophils # (Manual) Basophils # (Manual) PT INR APTT ABG pH ABG pO2 ABG HCO3 ABG O2 Saturation ABG Base Excess ABG Hemoglobin Oxyhemoglobin Sodium Potassium 5.2 H Chloride Carbon Dioxide 21 L BUN 69 H Creatinine 1.5 H Glucose 117 H POC Glucose 128 H 138 H Lactic Acid Calcium Ionized Calcium Phosphorus Magnesium Total Bilirubin AST ALT Alkaline Phosphatase Ammonia Total Creatine Kinase CK-MB (CK-2) CK-MB (CK-2) Rel Index Total Protein Albumin Urine WBC (Auto) Vancomycin Trough Salicylates Acetaminophen Plasma/Serum Alcohol Crossmatch 12/23/19 12/24/19 12/24/19 23:46 04:31 05:08 WBC RBC Hgb Hct MCH RDW Plt Count Lymph % (Auto) [place] % (Auto) [place] # Baso # Seg Neutrophils % Seg Neuts % (Manual) Lymphocytes % (Manual) Monocytes % (Manual) Seg Neutrophils # Seg Neutrophils # Man Lymphocytes # (Manual) Monocytes # (Manual) Eosinophils # (Manual) Basophils # (Manual) PT INR APTT ABG pH ABG pO2 ABG HCO3 ABG O2 Saturation ABG Base Excess ABG Hemoglobin Oxyhemoglobin Sodium Potassium 5.3 H Chloride 107.6 H Carbon Dioxide 20 L BUN 72 H Creatinine 1.6 H Glucose 120 H POC Glucose 120 H 140 H Lactic Acid Calcium Ionized Calcium Phosphorus Magnesium Total Bilirubin AST ALT Alkaline Phosphatase Ammonia Total Creatine Kinase CK-MB (CK-2) CK-MB (CK-2) Rel Index Total Protein Albumin Urine WBC (Auto) Vancomycin Trough Salicylates Acetaminophen Plasma/Serum Alcohol Crossmatch 12/24/19 12/24/19 12/25/19 11:58 17:49 03:47 WBC 36.2 H RBC 2.92 L Hgb 8.4 L Hct 26.1 L MCH RDW 20.2 H Plt Count 942 H Lymph % (Auto) [place] % (Auto) [place] # Baso # Seg Neutrophils % Seg Neuts % (Manual) 97.5 H Lymphocytes % (Manual) 1.0 L Monocytes % (Manual) Seg Neutrophils # Seg Neutrophils # Man 35.3 H Lymphocytes # (Manual) 0.4 L Monocytes # (Manual) Eosinophils # (Manual) Basophils # (Manual) PT INR APTT ABG pH ABG pO2 ABG HCO3 ABG O2 Saturation ABG Base Excess ABG Hemoglobin Oxyhemoglobin Sodium Potassium Chloride Carbon Dioxide BUN Creatinine Glucose POC Glucose 146 H 131 H Lactic Acid Calcium Ionized Calcium Phosphorus Magnesium Total Bilirubin AST ALT Alkaline Phosphatase Ammonia Total Creatine Kinase CK-MB (CK-2) CK-MB (CK-2) Rel Index Total Protein Albumin Urine WBC (Auto) Vancomycin Trough Salicylates Acetaminophen Plasma/Serum Alcohol Crossmatch 12/25/19 12/25/19 12/25/19 03:47 05:30 12:23 WBC RBC Hgb Hct MCH RDW Plt Count Lymph % (Auto) [place] % (Auto) [place] # Baso # Seg Neutrophils % Seg Neuts % (Manual) Lymphocytes % (Manual) Monocytes % (Manual) Seg Neutrophils # Seg Neutrophils # Man Lymphocytes # (Manual) Monocytes # (Manual) Eosinophils # (Manual) Basophils # (Manual) PT INR APTT ABG pH ABG pO2 ABG HCO3 ABG O2 Saturation ABG Base Excess ABG Hemoglobin Oxyhemoglobin Sodium Potassium Chloride Carbon Dioxide 15 L BUN 70 H Creatinine 1.7 H Glucose 153 H POC Glucose 169 H 135 H Lactic Acid Calcium Ionized Calcium Phosphorus Magnesium Total Bilirubin AST ALT Alkaline Phosphatase Ammonia Total Creatine Kinase CK-MB (CK-2) CK-MB (CK-2) Rel Index Total Protein Albumin Urine WBC (Auto) Vancomycin Trough Salicylates Acetaminophen Plasma/Serum Alcohol Crossmatch 12/25/19 12/25/19 12/26/19 17:37 23:29 09:47 WBC 22.1 H RBC 2.83 L Hgb 7.9 L Hct 25.5 L MCH RDW 20.0 H Plt Count 894 H Lymph % (Auto) [place] % (Auto) [place] # Baso # Seg Neutrophils % Seg Neuts % (Manual) Lymphocytes % (Manual) Monocytes % (Manual) Seg Neutrophils # Seg Neutrophils # Man Lymphocytes # (Manual) Monocytes # (Manual) Eosinophils # (Manual) Basophils # (Manual) PT INR APTT ABG pH ABG pO2 ABG HCO3 ABG O2 Saturation ABG Base Excess ABG Hemoglobin Oxyhemoglobin Sodium Potassium Chloride Carbon Dioxide BUN Creatinine Glucose POC Glucose 120 H 140 H Lactic Acid Calcium Ionized Calcium Phosphorus Magnesium Total Bilirubin AST ALT Alkaline Phosphatase Ammonia Total Creatine Kinase CK-MB (CK-2) CK-MB (CK-2) Rel Index Total Protein Albumin Urine WBC (Auto) Vancomycin Trough Salicylates Acetaminophen Plasma/Serum Alcohol Crossmatch 12/26/19 12/26/19 12/26/19 09:47 11:46 17:52 WBC RBC Hgb Hct MCH RDW Plt Count Lymph % (Auto) [place] % (Auto) [place] # Baso # Seg Neutrophils % Seg Neuts % (Manual) Lymphocytes % (Manual) Monocytes % (Manual) Seg Neutrophils # Seg Neutrophils # Man Lymphocytes # (Manual) Monocytes # (Manual) Eosinophils # (Manual) Basophils # (Manual) PT INR APTT ABG pH ABG pO2 ABG HCO3 ABG O2 Saturation ABG Base Excess ABG Hemoglobin Oxyhemoglobin Sodium Potassium Chloride Carbon Dioxide 18 L BUN 65 H Creatinine 1.4 H Glucose 132 H POC Glucose 110 H 145 H Lactic Acid Calcium Ionized Calcium Phosphorus Magnesium Total Bilirubin AST ALT Alkaline Phosphatase Ammonia Total Creatine Kinase CK-MB (CK-2) CK-MB (CK-2) Rel Index Total Protein Albumin Urine WBC (Auto) Vancomycin Trough Salicylates Acetaminophen Plasma/Serum Alcohol Crossmatch 12/27/19 12/27/19 12/27/19 00:01 03:42 03:42 WBC 18.0 H RBC 2.86 L Hgb 8.0 L Hct 25.2 L MCH RDW 19.2 H Plt Count 873 H Lymph % (Auto) 8.4 L [place] % (Auto) 7.5 H [place] # 1.4 H Baso # 0.2 H Seg Neutrophils % 82.2 H Seg Neuts % (Manual) Lymphocytes % (Manual) Monocytes % (Manual) Seg Neutrophils # 14.8 H Seg Neutrophils # Man Lymphocytes # (Manual) Monocytes # (Manual) Eosinophils # (Manual) Basophils # (Manual) PT INR APTT ABG pH ABG pO2 ABG HCO3 ABG O2 Saturation ABG Base Excess ABG Hemoglobin Oxyhemoglobin Sodium Potassium Chloride Carbon Dioxide BUN 73 H Creatinine 1.4 H Glucose 119 H POC Glucose 124 H Lactic Acid Calcium Ionized Calcium Phosphorus Magnesium Total Bilirubin AST ALT Alkaline Phosphatase Ammonia Total Creatine Kinase CK-MB (CK-2) CK-MB (CK-2) Rel Index Total Protein Albumin Urine WBC (Auto) Vancomycin Trough Salicylates Acetaminophen Plasma/Serum Alcohol Crossmatch 12/27/19 12/27/19 12/27/19 05:45 11:45 17:29 WBC RBC Hgb Hct MCH RDW Plt Count Lymph % (Auto) [place] % (Auto) [place] # Baso # Seg Neutrophils % Seg Neuts % (Manual) Lymphocytes % (Manual) Monocytes % (Manual) Seg Neutrophils # Seg Neutrophils # Man Lymphocytes # (Manual) Monocytes # (Manual) Eosinophils # (Manual) Basophils # (Manual) PT INR APTT ABG pH ABG pO2 ABG HCO3 ABG O2 Saturation ABG Base Excess ABG Hemoglobin Oxyhemoglobin Sodium Potassium Chloride Carbon Dioxide BUN Creatinine Glucose POC Glucose 131 H 123 H 134 H Lactic Acid Calcium Ionized Calcium Phosphorus Magnesium Total Bilirubin AST ALT Alkaline Phosphatase Ammonia Total Creatine Kinase CK-MB (CK-2) CK-MB (CK-2) Rel Index Total Protein Albumin Urine WBC (Auto) Vancomycin Trough Salicylates Acetaminophen Plasma/Serum Alcohol Crossmatch 12/28/19 12/28/19 12/28/19 00:12 05:14 11:53 WBC RBC Hgb Hct MCH RDW Plt Count Lymph % (Auto) [place] % (Auto) [place] # Baso # Seg Neutrophils % Seg Neuts % (Manual) Lymphocytes % (Manual) Monocytes % (Manual) Seg Neutrophils # Seg Neutrophils # Man Lymphocytes # (Manual) Monocytes # (Manual) Eosinophils # (Manual) Basophils # (Manual) PT INR APTT ABG pH ABG pO2 ABG HCO3 ABG O2 Saturation ABG Base Excess ABG Hemoglobin Oxyhemoglobin Sodium Potassium Chloride Carbon Dioxide BUN Creatinine Glucose POC Glucose 138 H 130 H 146 H Lactic Acid Calcium Ionized Calcium Phosphorus Magnesium Total Bilirubin AST ALT Alkaline Phosphatase Ammonia Total Creatine Kinase CK-MB (CK-2) CK-MB (CK-2) Rel Index Total Protein Albumin Urine WBC (Auto) Vancomycin Trough Salicylates Acetaminophen Plasma/Serum Alcohol Crossmatch 12/28/19 12/29/19 12/29/19 17:39 00:01 18:11 WBC RBC Hgb Hct MCH RDW Plt Count Lymph % (Auto) [place] % (Auto) [place] # Baso # Seg Neutrophils % Seg Neuts % (Manual) Lymphocytes % (Manual) Monocytes % (Manual) Seg Neutrophils # Seg Neutrophils # Man Lymphocytes # (Manual) Monocytes # (Manual) Eosinophils # (Manual) Basophils # (Manual) PT INR APTT ABG pH ABG pO2 ABG HCO3 ABG O2 Saturation ABG Base Excess ABG Hemoglobin Oxyhemoglobin Sodium Potassium Chloride Carbon Dioxide BUN Creatinine Glucose POC Glucose 117 H 139 H 130 H Lactic Acid Calcium Ionized Calcium Phosphorus Magnesium Total Bilirubin AST ALT Alkaline Phosphatase Ammonia Total Creatine Kinase CK-MB (CK-2) CK-MB (CK-2) Rel Index Total Protein Albumin Urine WBC (Auto) Vancomycin Trough Salicylates Acetaminophen Plasma/Serum Alcohol Crossmatch 12/29/19 12/30/19 12/30/19 23:09 00:02 01:06 WBC 16.7 H RBC 2.91 L Hgb 8.2 L Hct 25.4 L MCH RDW 18.7 H Plt Count 708 H Lymph % (Auto) 9.4 L [place] % (Auto) [place] # 0.9 H Baso # Seg Neutrophils % 83.5 H Seg Neuts % (Manual) Lymphocytes % (Manual) Monocytes % (Manual) Seg Neutrophils # 14.0 H Seg Neutrophils # Man Lymphocytes # (Manual) Monocytes # (Manual) Eosinophils # (Manual) Basophils # (Manual) PT INR APTT ABG pH ABG pO2 ABG HCO3 ABG O2 Saturation ABG Base Excess ABG Hemoglobin Oxyhemoglobin Sodium Potassium Chloride Carbon Dioxide BUN Creatinine Glucose POC Glucose 120 H 114 H Lactic Acid Calcium Ionized Calcium Phosphorus Magnesium Total Bilirubin AST ALT Alkaline Phosphatase Ammonia Total Creatine Kinase CK-MB (CK-2) CK-MB (CK-2) Rel Index Total Protein Albumin Urine WBC (Auto) Vancomycin Trough Salicylates Acetaminophen Plasma/Serum Alcohol Crossmatch 12/30/19 12/30/19 12/30/19 01:06 04:23 05:18 WBC RBC Hgb Hct MCH RDW Plt Count Lymph % (Auto) [place] % (Auto) [place] # Baso # Seg Neutrophils % Seg Neuts % (Manual) Lymphocytes % (Manual) Monocytes % (Manual) Seg Neutrophils # Seg Neutrophils # Man Lymphocytes # (Manual) Monocytes # (Manual) Eosinophils # (Manual) Basophils # (Manual) PT INR APTT ABG pH ABG pO2 ABG HCO3 ABG O2 Saturation ABG Base Excess ABG Hemoglobin 8.3 L Oxyhemoglobin Sodium Potassium Chloride Carbon Dioxide BUN 70 H Creatinine Glucose 122 H POC Glucose 130 H Lactic Acid Calcium Ionized Calcium Phosphorus Magnesium Total Bilirubin AST ALT Alkaline Phosphatase Ammonia Total Creatine Kinase CK-MB (CK-2) CK-MB (CK-2) Rel Index Total Protein Albumin Urine WBC (Auto) Vancomycin Trough Salicylates Acetaminophen Plasma/Serum Alcohol Crossmatch 12/30/19 12/30/19 12/30/19 05:40 12:17 17:43 WBC RBC Hgb Hct MCH RDW Plt Count Lymph % (Auto) [place] % (Auto) [place] # Baso # Seg Neutrophils % Seg Neuts % (Manual) Lymphocytes % (Manual) Monocytes % (Manual) Seg Neutrophils # Seg Neutrophils # Man Lymphocytes # (Manual) Monocytes # (Manual) Eosinophils # (Manual) Basophils # (Manual) PT INR APTT ABG pH ABG pO2 ABG HCO3 ABG O2 Saturation ABG Base Excess ABG Hemoglobin Oxyhemoglobin Sodium Potassium Chloride Carbon Dioxide BUN Creatinine Glucose POC Glucose 135 H 132 H 118 H Lactic Acid Calcium Ionized Calcium Phosphorus Magnesium Total Bilirubin AST ALT Alkaline Phosphatase Ammonia Total Creatine Kinase CK-MB (CK-2) CK-MB (CK-2) Rel Index Total Protein Albumin Urine WBC (Auto) Vancomycin Trough Salicylates Acetaminophen Plasma/Serum Alcohol Crossmatch 12/30/19 12/31/19 12/31/19 23:29 05:19 17:50 WBC RBC Hgb Hct MCH RDW Plt Count Lymph % (Auto) [place] % (Auto) [place] # Baso # Seg Neutrophils % Seg Neuts % (Manual) Lymphocytes % (Manual) Monocytes % (Manual) Seg Neutrophils # Seg Neutrophils # Man Lymphocytes # (Manual) Monocytes # (Manual) Eosinophils # (Manual) Basophils # (Manual) PT INR APTT ABG pH ABG pO2 ABG HCO3 ABG O2 Saturation ABG Base Excess ABG Hemoglobin Oxyhemoglobin Sodium Potassium Chloride Carbon Dioxide BUN Creatinine Glucose POC Glucose 114 H 109 H 116 H Lactic Acid Calcium Ionized Calcium Phosphorus Magnesium Total Bilirubin AST ALT Alkaline Phosphatase Ammonia Total Creatine Kinase CK-MB (CK-2) CK-MB (CK-2) Rel Index Total Protein Albumin Urine WBC (Auto) Vancomycin Trough Salicylates Acetaminophen Plasma/Serum Alcohol Crossmatch 01/01/20 01/01/20 01/01/20 00:10 05:19 12:02 WBC RBC Hgb Hct MCH RDW Plt Count Lymph % (Auto) [place] % (Auto) [place] # Baso # Seg Neutrophils % Seg Neuts % (Manual) Lymphocytes % (Manual) Monocytes % (Manual) Seg Neutrophils # Seg Neutrophils # Man Lymphocytes # (Manual) Monocytes # (Manual) Eosinophils # (Manual) Basophils # (Manual) PT INR APTT ABG pH ABG pO2 ABG HCO3 ABG O2 Saturation ABG Base Excess ABG Hemoglobin Oxyhemoglobin Sodium Potassium Chloride Carbon Dioxide BUN Creatinine Glucose POC Glucose 131 H 122 H 136 H Lactic Acid Calcium Ionized Calcium Phosphorus Magnesium Total Bilirubin AST ALT Alkaline Phosphatase Ammonia Total Creatine Kinase CK-MB (CK-2) CK-MB (CK-2) Rel Index Total Protein Albumin Urine WBC (Auto) Vancomycin Trough Salicylates Acetaminophen Plasma/Serum Alcohol Crossmatch 01/02/20 01/02/20 01/02/20 00:24 05:36 11:41 WBC RBC Hgb Hct MCH RDW Plt Count Lymph % (Auto) [place] % (Auto) [place] # Baso # Seg Neutrophils % Seg Neuts % (Manual) Lymphocytes % (Manual) Monocytes % (Manual) Seg Neutrophils # Seg Neutrophils # Man Lymphocytes # (Manual) Monocytes # (Manual) Eosinophils # (Manual) Basophils # (Manual) PT INR APTT ABG pH ABG pO2 ABG HCO3 ABG O2 Saturation ABG Base Excess ABG Hemoglobin Oxyhemoglobin Sodium Potassium Chloride Carbon Dioxide BUN Creatinine Glucose POC Glucose 119 H 109 H 125 H Lactic Acid Calcium Ionized Calcium Phosphorus Magnesium Total Bilirubin AST ALT Alkaline Phosphatase Ammonia Total Creatine Kinase CK-MB (CK-2) CK-MB (CK-2) Rel Index Total Protein Albumin Urine WBC (Auto) Vancomycin Trough Salicylates Acetaminophen Plasma/Serum Alcohol Crossmatch 01/02/20 01/03/20 01/03/20 17:49 05:29 12:13 WBC RBC Hgb Hct MCH RDW Plt Count Lymph % (Auto) [place] % (Auto) [place] # Baso # Seg Neutrophils % Seg Neuts % (Manual) Lymphocytes % (Manual) Monocytes % (Manual) Seg Neutrophils # Seg Neutrophils # Man Lymphocytes # (Manual) Monocytes # (Manual) Eosinophils # (Manual) Basophils # (Manual) PT INR APTT ABG pH ABG pO2 ABG HCO3 ABG O2 Saturation ABG Base Excess ABG Hemoglobin Oxyhemoglobin Sodium Potassium Chloride Carbon Dioxide BUN Creatinine Glucose POC Glucose 130 H 132 H 113 H Lactic Acid Calcium Ionized Calcium Phosphorus Magnesium Total Bilirubin AST ALT Alkaline Phosphatase Ammonia Total Creatine Kinase CK-MB (CK-2) CK-MB (CK-2) Rel Index Total Protein Albumin Urine WBC (Auto) Vancomycin Trough Salicylates Acetaminophen Plasma/Serum Alcohol Crossmatch 01/03/20 01/04/20 01/04/20 17:32 00:19 05:26 WBC RBC Hgb Hct MCH RDW Plt Count Lymph % (Auto) [place] % (Auto) [place] # Baso # Seg Neutrophils % Seg Neuts % (Manual) Lymphocytes % (Manual) Monocytes % (Manual) Seg Neutrophils # Seg Neutrophils # Man Lymphocytes # (Manual) Monocytes # (Manual) Eosinophils # (Manual) Basophils # (Manual) PT INR APTT ABG pH ABG pO2 ABG HCO3 ABG O2 Saturation ABG Base Excess ABG Hemoglobin Oxyhemoglobin Sodium Potassium Chloride Carbon Dioxide BUN Creatinine Glucose POC Glucose 127 H 141 H 129 H Lactic Acid Calcium Ionized Calcium Phosphorus Magnesium Total Bilirubin AST ALT Alkaline Phosphatase Ammonia Total Creatine Kinase CK-MB (CK-2) CK-MB (CK-2) Rel Index Total Protein Albumin Urine WBC (Auto) Vancomycin Trough Salicylates Acetaminophen Plasma/Serum Alcohol Crossmatch 01/04/20 01/04/20 01/05/20 11:39 17:29 05:22 WBC RBC Hgb Hct MCH RDW Plt Count Lymph % (Auto) [place] % (Auto) [place] # Baso # Seg Neutrophils % Seg Neuts % (Manual) Lymphocytes % (Manual) Monocytes % (Manual) Seg Neutrophils # Seg Neutrophils # Man Lymphocytes # (Manual) Monocytes # (Manual) Eosinophils # (Manual) Basophils # (Manual) PT INR APTT ABG pH ABG pO2 ABG HCO3 ABG O2 Saturation ABG Base Excess ABG Hemoglobin Oxyhemoglobin Sodium Potassium Chloride Carbon Dioxide BUN Creatinine Glucose POC Glucose 167 H 132 H 121 H Lactic Acid Calcium Ionized Calcium Phosphorus Magnesium Total Bilirubin AST ALT Alkaline Phosphatase Ammonia Total Creatine Kinase CK-MB (CK-2) CK-MB (CK-2) Rel Index Total Protein Albumin Urine WBC (Auto) Vancomycin Trough Salicylates Acetaminophen Plasma/Serum Alcohol Crossmatch 01/05/20 01/05/20 01/05/20 12:25 17:40 18:06 WBC RBC Hgb Hct MCH RDW Plt Count Lymph % (Auto) [place] % (Auto) [place] # Baso # Seg Neutrophils % Seg Neuts % (Manual) Lymphocytes % (Manual) Monocytes % (Manual) Seg Neutrophils # Seg Neutrophils # Man Lymphocytes # (Manual) Monocytes # (Manual) Eosinophils # (Manual) Basophils # (Manual) PT INR APTT ABG pH 7.472 H ABG pO2 99.2 H ABG HCO3 ABG O2 Saturation ABG Base Excess ABG Hemoglobin 7.8 L Oxyhemoglobin Sodium Potassium Chloride Carbon Dioxide BUN Creatinine Glucose POC Glucose 106 H 110 H Lactic Acid Calcium Ionized Calcium Phosphorus Magnesium Total Bilirubin AST ALT Alkaline Phosphatase Ammonia Total Creatine Kinase CK-MB (CK-2) CK-MB (CK-2) Rel Index Total Protein Albumin Urine WBC (Auto) Vancomycin Trough Salicylates Acetaminophen Plasma/Serum Alcohol Crossmatch 01/06/20 01/06/20 01/06/20 00:11 05:16 11:30 WBC RBC Hgb Hct MCH RDW Plt Count Lymph % (Auto) [place] % (Auto) [place] # Baso # Seg Neutrophils % Seg Neuts % (Manual) Lymphocytes % (Manual) Monocytes % (Manual) Seg Neutrophils # Seg Neutrophils # Man Lymphocytes # (Manual) Monocytes # (Manual) Eosinophils # (Manual) Basophils # (Manual) PT INR APTT ABG pH ABG pO2 ABG HCO3 ABG O2 Saturation ABG Base Excess ABG Hemoglobin Oxyhemoglobin Sodium Potassium Chloride Carbon Dioxide BUN Creatinine Glucose POC Glucose 108 H 124 H 125 H Lactic Acid Calcium Ionized Calcium Phosphorus Magnesium Total Bilirubin AST ALT Alkaline Phosphatase Ammonia Total Creatine Kinase CK-MB (CK-2) CK-MB (CK-2) Rel Index Total Protein Albumin Urine WBC (Auto) Vancomycin Trough Salicylates Acetaminophen Plasma/Serum Alcohol Crossmatch 01/06/20 01/06/20 01/07/20 17:53 23:51 04:12 WBC 16.5 H RBC 3.29 L Hgb 9.3 L Hct 28.1 L MCH RDW 18.2 H Plt Count 526 H Lymph % (Auto) 8.4 L [place] % (Auto) [place] # 1.0 H Baso # Seg Neutrophils % 84.4 H Seg Neuts % (Manual) Lymphocytes % (Manual) Monocytes % (Manual) Seg Neutrophils # 13.9 H Seg Neutrophils # Man Lymphocytes # (Manual) Monocytes # (Manual) Eosinophils # (Manual) Basophils # (Manual) PT INR APTT ABG pH ABG pO2 ABG HCO3 ABG O2 Saturation ABG Base Excess ABG Hemoglobin Oxyhemoglobin Sodium Potassium Chloride Carbon Dioxide BUN Creatinine Glucose POC Glucose 166 H 128 H Lactic Acid Calcium Ionized Calcium Phosphorus Magnesium Total Bilirubin AST ALT Alkaline Phosphatase Ammonia Total Creatine Kinase CK-MB (CK-2) CK-MB (CK-2) Rel Index Total Protein Albumin Urine WBC (Auto) Vancomycin Trough Salicylates Acetaminophen Plasma/Serum Alcohol Crossmatch 01/07/20 01/07/20 01/07/20 04:12 04:45 11:51 WBC RBC Hgb Hct MCH RDW Plt Count Lymph % (Auto) [place] % (Auto) [place] # Baso # Seg Neutrophils % Seg Neuts % (Manual) Lymphocytes % (Manual) Monocytes % (Manual) Seg Neutrophils # Seg Neutrophils # Man Lymphocytes # (Manual) Monocytes # (Manual) Eosinophils # (Manual) Basophils # (Manual) PT INR APTT ABG pH ABG pO2 ABG HCO3 ABG O2 Saturation ABG Base Excess ABG Hemoglobin Oxyhemoglobin Sodium 136 L Potassium Chloride Carbon Dioxide 21 L BUN 44 H Creatinine 0.6 L Glucose 124 H POC Glucose 134 H 138 H Lactic Acid Calcium Ionized Calcium Phosphorus Magnesium Total Bilirubin AST ALT Alkaline Phosphatase Ammonia Total Creatine Kinase CK-MB (CK-2) CK-MB (CK-2) Rel Index Total Protein Albumin Urine WBC (Auto) Vancomycin Trough Salicylates Acetaminophen Plasma/Serum Alcohol Crossmatch 01/07/20 01/08/20 01/08/20 17:36 00:33 05:29 WBC RBC Hgb Hct MCH RDW Plt Count Lymph % (Auto) [place] % (Auto) [place] # Baso # Seg Neutrophils % Seg Neuts % (Manual) Lymphocytes % (Manual) Monocytes % (Manual) Seg Neutrophils # Seg Neutrophils # Man Lymphocytes # (Manual) Monocytes # (Manual) Eosinophils # (Manual) Basophils # (Manual) PT INR APTT ABG pH ABG pO2 ABG HCO3 ABG O2 Saturation ABG Base Excess ABG Hemoglobin Oxyhemoglobin Sodium Potassium Chloride Carbon Dioxide BUN Creatinine Glucose POC Glucose 128 H 119 H 124 H Lactic Acid Calcium Ionized Calcium Phosphorus Magnesium Total Bilirubin AST ALT Alkaline Phosphatase Ammonia Total Creatine Kinase CK-MB (CK-2) CK-MB (CK-2) Rel Index Total Protein Albumin Urine WBC (Auto) Vancomycin Trough Salicylates Acetaminophen Plasma/Serum Alcohol Crossmatch 01/08/20 01/08/20 01/08/20 12:51 20:25 23:22 WBC RBC Hgb Hct MCH RDW Plt Count Lymph % (Auto) [place] % (Auto) [place] # Baso # Seg Neutrophils % Seg Neuts % (Manual) Lymphocytes % (Manual) Monocytes % (Manual) Seg Neutrophils # Seg Neutrophils # Man Lymphocytes # (Manual) Monocytes # (Manual) Eosinophils # (Manual) Basophils # (Manual) PT INR APTT ABG pH ABG pO2 132.2 H ABG HCO3 ABG O2 Saturation ABG Base Excess ABG Hemoglobin Oxyhemoglobin Sodium Potassium Chloride Carbon Dioxide BUN Creatinine Glucose POC Glucose 128 H 127 H Lactic Acid Calcium Ionized Calcium Phosphorus Magnesium Total Bilirubin AST ALT Alkaline Phosphatase Ammonia Total Creatine Kinase CK-MB (CK-2) CK-MB (CK-2) Rel Index Total Protein Albumin Urine WBC (Auto) Vancomycin Trough Salicylates Acetaminophen Plasma/Serum Alcohol Crossmatch 01/09/20 01/09/20 01/09/20 05:48 08:51 11:29 WBC RBC Hgb Hct MCH RDW Plt Count Lymph % (Auto) [place] % (Auto) [place] # Baso # Seg Neutrophils % Seg Neuts % (Manual) Lymphocytes % (Manual) Monocytes % (Manual) Seg Neutrophils # Seg Neutrophils # Man Lymphocytes # (Manual) Monocytes # (Manual) Eosinophils # (Manual) Basophils # (Manual) PT INR APTT ABG pH ABG pO2 94.3 H ABG HCO3 ABG O2 Saturation ABG Base Excess ABG Hemoglobin 9.5 L Oxyhemoglobin Sodium Potassium Chloride Carbon Dioxide BUN Creatinine Glucose POC Glucose 120 H 112 H Lactic Acid Calcium Ionized Calcium Phosphorus Magnesium Total Bilirubin AST ALT Alkaline Phosphatase Ammonia Total Creatine Kinase CK-MB (CK-2) CK-MB (CK-2) Rel Index Total Protein Albumin Urine WBC (Auto) Vancomycin Trough Salicylates Acetaminophen Plasma/Serum Alcohol Crossmatch 01/09/20 01/10/20 01/10/20 17:57 05:17 12:28 WBC RBC Hgb Hct MCH RDW Plt Count Lymph % (Auto) [place] % (Auto) [place] # Baso # Seg Neutrophils % Seg Neuts % (Manual) Lymphocytes % (Manual) Monocytes % (Manual) Seg Neutrophils # Seg Neutrophils # Man Lymphocytes # (Manual) Monocytes # (Manual) Eosinophils # (Manual) Basophils # (Manual) PT INR APTT ABG pH ABG pO2 ABG HCO3 ABG O2 Saturation ABG Base Excess ABG Hemoglobin Oxyhemoglobin Sodium Potassium Chloride Carbon Dioxide BUN Creatinine Glucose POC Glucose 122 H 115 H 116 H Lactic Acid Calcium Ionized Calcium Phosphorus Magnesium Total Bilirubin AST ALT Alkaline Phosphatase Ammonia Total Creatine Kinase CK-MB (CK-2) CK-MB (CK-2) Rel Index Total Protein Albumin Urine WBC (Auto) Vancomycin Trough Salicylates Acetaminophen Plasma/Serum Alcohol Crossmatch 01/10/20 01/10/20 01/11/20 18:25 23:47 06:05 WBC RBC Hgb Hct MCH RDW Plt Count Lymph % (Auto) [place] % (Auto) [place] # Baso # Seg Neutrophils % Seg Neuts % (Manual) Lymphocytes % (Manual) Monocytes % (Manual) Seg Neutrophils # Seg Neutrophils # Man Lymphocytes # (Manual) Monocytes # (Manual) Eosinophils # (Manual) Basophils # (Manual) PT INR APTT ABG pH ABG pO2 ABG HCO3 ABG O2 Saturation ABG Base Excess ABG Hemoglobin Oxyhemoglobin Sodium Potassium Chloride Carbon Dioxide BUN Creatinine Glucose POC Glucose 123 H 115 H 151 H Lactic Acid Calcium Ionized Calcium Phosphorus Magnesium Total Bilirubin AST ALT Alkaline Phosphatase Ammonia Total Creatine Kinase CK-MB (CK-2) CK-MB (CK-2) Rel Index Total Protein Albumin Urine WBC (Auto) Vancomycin Trough Salicylates Acetaminophen Plasma/Serum Alcohol Crossmatch 01/11/20 01/11/20 01/11/20 07:00 07:00 12:27 WBC 11.8 H RBC 3.40 L Hgb 9.4 L Hct 29.3 L MCH RDW 18.1 H Plt Count 549 H Lymph % (Auto) [place] % (Auto) 9.1 H [place] # 1.1 H Baso # Seg Neutrophils % 73.3 H Seg Neuts % (Manual) Lymphocytes % (Manual) Monocytes % (Manual) Seg Neutrophils # 8.7 H Seg Neutrophils # Man Lymphocytes # (Manual) Monocytes # (Manual) Eosinophils # (Manual) Basophils # (Manual) PT INR APTT ABG pH ABG pO2 ABG HCO3 ABG O2 Saturation ABG Base Excess ABG Hemoglobin Oxyhemoglobin Sodium 134 L Potassium Chloride 97.7 L Carbon Dioxide 21 L BUN 38 H Creatinine 0.5 L Glucose 168 H POC Glucose 117 H Lactic Acid Calcium 10.5 H Ionized Calcium Phosphorus Magnesium Total Bilirubin AST ALT Alkaline Phosphatase Ammonia Total Creatine Kinase CK-MB (CK-2) CK-MB (CK-2) Rel Index Total Protein Albumin Urine WBC (Auto) Vancomycin Trough Salicylates Acetaminophen Plasma/Serum Alcohol Crossmatch 01/11/20 01/12/20 01/12/20 18:19 00:53 05:24 WBC RBC Hgb Hct MCH RDW Plt Count Lymph % (Auto) [place] % (Auto) [place] # Baso # Seg Neutrophils % Seg Neuts % (Manual) Lymphocytes % (Manual) Monocytes % (Manual) Seg Neutrophils # Seg Neutrophils # Man Lymphocytes # (Manual) Monocytes # (Manual) Eosinophils # (Manual) Basophils # (Manual) PT INR APTT ABG pH ABG pO2 ABG HCO3 ABG O2 Saturation ABG Base Excess ABG Hemoglobin Oxyhemoglobin Sodium Potassium Chloride Carbon Dioxide BUN Creatinine Glucose POC Glucose 126 H 126 H 128 H Lactic Acid Calcium Ionized Calcium Phosphorus Magnesium Total Bilirubin AST ALT Alkaline Phosphatase Ammonia Total Creatine Kinase CK-MB (CK-2) CK-MB (CK-2) Rel Index Total Protein Albumin Urine WBC (Auto) Vancomycin Trough Salicylates Acetaminophen Plasma/Serum Alcohol Crossmatch 01/12/20 01/12/20 01/13/20 13:39 18:02 00:27 WBC RBC Hgb Hct MCH RDW Plt Count Lymph % (Auto) [place] % (Auto) [place] # Baso # Seg Neutrophils % Seg Neuts % (Manual) Lymphocytes % (Manual) Monocytes % (Manual) Seg Neutrophils # Seg Neutrophils # Man Lymphocytes # (Manual) Monocytes # (Manual) Eosinophils # (Manual) Basophils # (Manual) PT INR APTT ABG pH ABG pO2 ABG HCO3 ABG O2 Saturation ABG Base Excess ABG Hemoglobin Oxyhemoglobin Sodium Potassium Chloride Carbon Dioxide BUN Creatinine Glucose POC Glucose 146 H 125 H 131 H Lactic Acid Calcium Ionized Calcium Phosphorus Magnesium Total Bilirubin AST ALT Alkaline Phosphatase Ammonia Total Creatine Kinase CK-MB (CK-2) CK-MB (CK-2) Rel Index Total Protein Albumin Urine WBC (Auto) Vancomycin Trough Salicylates Acetaminophen Plasma/Serum Alcohol Crossmatch 01/13/20 01/13/20 01/13/20 05:44 11:54 17:18 WBC RBC Hgb Hct MCH RDW Plt Count Lymph % (Auto) [place] % (Auto) [place] # Baso # Seg Neutrophils % Seg Neuts % (Manual) Lymphocytes % (Manual) Monocytes % (Manual) Seg Neutrophils # Seg Neutrophils # Man Lymphocytes # (Manual) Monocytes # (Manual) Eosinophils # (Manual) Basophils # (Manual) PT INR APTT ABG pH ABG pO2 ABG HCO3 ABG O2 Saturation ABG Base Excess ABG Hemoglobin Oxyhemoglobin Sodium Potassium Chloride Carbon Dioxide BUN Creatinine Glucose POC Glucose 148 H 140 H 130 H Lactic Acid Calcium Ionized Calcium Phosphorus Magnesium Total Bilirubin AST ALT Alkaline Phosphatase Ammonia Total Creatine Kinase CK-MB (CK-2) CK-MB (CK-2) Rel Index Total Protein Albumin Urine WBC (Auto) Vancomycin Trough Salicylates Acetaminophen Plasma/Serum Alcohol Crossmatch 01/14/20 01/14/20 01/14/20 00:16 05:45 12:19 WBC RBC Hgb Hct MCH RDW Plt Count Lymph % (Auto) [place] % (Auto) [place] # Baso # Seg Neutrophils % Seg Neuts % (Manual) Lymphocytes % (Manual) Monocytes % (Manual) Seg Neutrophils # Seg Neutrophils # Man Lymphocytes # (Manual) Monocytes # (Manual) Eosinophils # (Manual) Basophils # (Manual) PT INR APTT ABG pH ABG pO2 ABG HCO3 ABG O2 Saturation ABG Base Excess ABG Hemoglobin Oxyhemoglobin Sodium Potassium Chloride Carbon Dioxide BUN Creatinine Glucose POC Glucose 125 H 146 H 147 H Lactic Acid Calcium Ionized Calcium Phosphorus Magnesium Total Bilirubin AST ALT Alkaline Phosphatase Ammonia Total Creatine Kinase CK-MB (CK-2) CK-MB (CK-2) Rel Index Total Protein Albumin Urine WBC (Auto) Vancomycin Trough Salicylates Acetaminophen Plasma/Serum Alcohol Crossmatch 01/14/20 01/14/20 01/15/20 18:10 23:54 05:14 WBC RBC Hgb Hct MCH RDW Plt Count Lymph % (Auto) [place] % (Auto) [place] # Baso # Seg Neutrophils % Seg Neuts % (Manual) Lymphocytes % (Manual) Monocytes % (Manual) Seg Neutrophils # Seg Neutrophils # Man Lymphocytes # (Manual) Monocytes # (Manual) Eosinophils # (Manual) Basophils # (Manual) PT INR APTT ABG pH ABG pO2 ABG HCO3 ABG O2 Saturation ABG Base Excess ABG Hemoglobin Oxyhemoglobin Sodium Potassium Chloride Carbon Dioxide BUN Creatinine Glucose POC Glucose 136 H 109 H 111 H Lactic Acid Calcium Ionized Calcium Phosphorus Magnesium Total Bilirubin AST ALT Alkaline Phosphatase Ammonia Total Creatine Kinase CK-MB (CK-2) CK-MB (CK-2) Rel Index Total Protein Albumin Urine WBC (Auto) Vancomycin Trough Salicylates Acetaminophen Plasma/Serum Alcohol Crossmatch 01/15/20 01/15/20 01/16/20 12:34 23:25 05:06 WBC RBC Hgb Hct MCH RDW Plt Count Lymph % (Auto) [place] % (Auto) [place] # Baso # Seg Neutrophils % Seg Neuts % (Manual) Lymphocytes % (Manual) Monocytes % (Manual) Seg Neutrophils # Seg Neutrophils # Man Lymphocytes # (Manual) Monocytes # (Manual) Eosinophils # (Manual) Basophils # (Manual) PT INR APTT ABG pH ABG pO2 ABG HCO3 ABG O2 Saturation ABG Base Excess ABG Hemoglobin Oxyhemoglobin Sodium Potassium Chloride Carbon Dioxide BUN Creatinine Glucose POC Glucose 131 H 120 H 121 H Lactic Acid Calcium Ionized Calcium Phosphorus Magnesium Total Bilirubin AST ALT Alkaline Phosphatase Ammonia Total Creatine Kinase CK-MB (CK-2) CK-MB (CK-2) Rel Index Total Protein Albumin Urine WBC (Auto) Vancomycin Trough Salicylates Acetaminophen Plasma/Serum Alcohol Crossmatch 01/16/20 01/17/20 01/17/20 23:46 05:32 06:47 WBC 13.6 H RBC 3.27 L Hgb 9.3 L Hct 28.5 L MCH RDW 17.0 H Plt Count 490 H Lymph % (Auto) 13.1 L [place] % (Auto) [place] # 1.0 H Baso # Seg Neutrophils % 77.5 H Seg Neuts % (Manual) Lymphocytes % (Manual) Monocytes % (Manual) Seg Neutrophils # 10.5 H Seg Neutrophils # Man Lymphocytes # (Manual) Monocytes # (Manual) Eosinophils # (Manual) Basophils # (Manual) PT INR APTT ABG pH ABG pO2 ABG HCO3 ABG O2 Saturation ABG Base Excess ABG Hemoglobin Oxyhemoglobin Sodium Potassium Chloride Carbon Dioxide BUN Creatinine Glucose POC Glucose 107 H 112 H Lactic Acid Calcium Ionized Calcium Phosphorus Magnesium Total Bilirubin AST ALT Alkaline Phosphatase Ammonia Total Creatine Kinase CK-MB (CK-2) CK-MB (CK-2) Rel Index Total Protein Albumin Urine WBC (Auto) Vancomycin Trough Salicylates Acetaminophen Plasma/Serum Alcohol Crossmatch 01/17/20 01/17/20 01/17/20 12:16 17:21 23:34 WBC RBC Hgb Hct MCH RDW Plt Count Lymph % (Auto) [place] % (Auto) [place] # Baso # Seg Neutrophils % Seg Neuts % (Manual) Lymphocytes % (Manual) Monocytes % (Manual) Seg Neutrophils # Seg Neutrophils # Man Lymphocytes # (Manual) Monocytes # (Manual) Eosinophils # (Manual) Basophils # (Manual) PT INR APTT ABG pH ABG pO2 ABG HCO3 ABG O2 Saturation ABG Base Excess ABG Hemoglobin Oxyhemoglobin Sodium Potassium Chloride Carbon Dioxide BUN Creatinine Glucose POC Glucose 145 H 150 H 160 H Lactic Acid Calcium Ionized Calcium Phosphorus Magnesium Total Bilirubin AST ALT Alkaline Phosphatase Ammonia Total Creatine Kinase CK-MB (CK-2) CK-MB (CK-2) Rel Index Total Protein Albumin Urine WBC (Auto) Vancomycin Trough Salicylates Acetaminophen Plasma/Serum Alcohol Crossmatch 01/18/20 01/18/20 01/18/20 05:47 12:43 18:26 WBC RBC Hgb Hct MCH RDW Plt Count Lymph % (Auto) [place] % (Auto) [place] # Baso # Seg Neutrophils % Seg Neuts % (Manual) Lymphocytes % (Manual) Monocytes % (Manual) Seg Neutrophils # Seg Neutrophils # Man Lymphocytes # (Manual) Monocytes # (Manual) Eosinophils # (Manual) Basophils # (Manual) PT INR APTT ABG pH ABG pO2 ABG HCO3 ABG O2 Saturation ABG Base Excess ABG Hemoglobin Oxyhemoglobin Sodium Potassium Chloride Carbon Dioxide BUN Creatinine Glucose POC Glucose 130 H 124 H 119 H Lactic Acid Calcium Ionized Calcium Phosphorus Magnesium Total Bilirubin AST ALT Alkaline Phosphatase Ammonia Total Creatine Kinase CK-MB (CK-2) CK-MB (CK-2) Rel Index Total Protein Albumin Urine WBC (Auto) Vancomycin Trough Salicylates Acetaminophen Plasma/Serum Alcohol Crossmatch 01/19/20 01/19/20 01/19/20 00:14 06:24 12:24 WBC RBC Hgb Hct MCH RDW Plt Count Lymph % (Auto) [place] % (Auto) [place] # Baso # Seg Neutrophils % Seg Neuts % (Manual) Lymphocytes % (Manual) Monocytes % (Manual) Seg Neutrophils # Seg Neutrophils # Man Lymphocytes # (Manual) Monocytes # (Manual) Eosinophils # (Manual) Basophils # (Manual) PT INR APTT ABG pH ABG pO2 ABG HCO3 ABG O2 Saturation ABG Base Excess ABG Hemoglobin Oxyhemoglobin Sodium Potassium Chloride Carbon Dioxide BUN Creatinine Glucose POC Glucose 114 H 144 H 132 H Lactic Acid Calcium Ionized Calcium Phosphorus Magnesium Total Bilirubin AST ALT Alkaline Phosphatase Ammonia Total Creatine Kinase CK-MB (CK-2) CK-MB (CK-2) Rel Index Total Protein Albumin Urine WBC (Auto) Vancomycin Trough Salicylates Acetaminophen Plasma/Serum Alcohol Crossmatch 01/19/20 01/20/20 01/21/20 17:50 12:06 05:46 WBC RBC Hgb Hct MCH RDW Plt Count Lymph % (Auto) [place] % (Auto) [place] # Baso # Seg Neutrophils % Seg Neuts % (Manual) Lymphocytes % (Manual) Monocytes % (Manual) Seg Neutrophils # Seg Neutrophils # Man Lymphocytes # (Manual) Monocytes # (Manual) Eosinophils # (Manual) Basophils # (Manual) PT INR APTT ABG pH ABG pO2 ABG HCO3 ABG O2 Saturation ABG Base Excess ABG Hemoglobin Oxyhemoglobin Sodium Potassium Chloride Carbon Dioxide BUN Creatinine Glucose POC Glucose 144 H 135 H 114 H Lactic Acid Calcium Ionized Calcium Phosphorus Magnesium Total Bilirubin AST ALT Alkaline Phosphatase Ammonia Total Creatine Kinase CK-MB (CK-2) CK-MB (CK-2) Rel Index Total Protein Albumin Urine WBC (Auto) Vancomycin Trough Salicylates Acetaminophen Plasma/Serum Alcohol Crossmatch 01/21/20 01/21/20 01/22/20 13:02 23:49 05:41 WBC RBC Hgb Hct MCH RDW Plt Count Lymph % (Auto) [place] % (Auto) [place] # Baso # Seg Neutrophils % Seg Neuts % (Manual) Lymphocytes % (Manual) Monocytes % (Manual) Seg Neutrophils # Seg Neutrophils # Man Lymphocytes # (Manual) Monocytes # (Manual) Eosinophils # (Manual) Basophils # (Manual) PT INR APTT ABG pH ABG pO2 ABG HCO3 ABG O2 Saturation ABG Base Excess ABG Hemoglobin Oxyhemoglobin Sodium Potassium Chloride Carbon Dioxide BUN Creatinine Glucose POC Glucose 136 H 120 H 124 H Lactic Acid Calcium Ionized Calcium Phosphorus Magnesium Total Bilirubin AST ALT Alkaline Phosphatase Ammonia Total Creatine Kinase CK-MB (CK-2) CK-MB (CK-2) Rel Index Total Protein Albumin Urine WBC (Auto) Vancomycin Trough Salicylates Acetaminophen Plasma/Serum Alcohol Crossmatch 01/22/20 01/22/20 01/22/20 11:44 16:31 23:25 WBC RBC Hgb Hct MCH RDW Plt Count Lymph % (Auto) [place] % (Auto) [place] # Baso # Seg Neutrophils % Seg Neuts % (Manual) Lymphocytes % (Manual) Monocytes % (Manual) Seg Neutrophils # Seg Neutrophils # Man Lymphocytes # (Manual) Monocytes # (Manual) Eosinophils # (Manual) Basophils # (Manual) PT INR APTT ABG pH ABG pO2 ABG HCO3 ABG O2 Saturation ABG Base Excess ABG Hemoglobin Oxyhemoglobin Sodium Potassium Chloride Carbon Dioxide BUN Creatinine Glucose POC Glucose 173 H 111 H 134 H Lactic Acid Calcium Ionized Calcium Phosphorus Magnesium Total Bilirubin AST ALT Alkaline Phosphatase Ammonia Total Creatine Kinase CK-MB (CK-2) CK-MB (CK-2) Rel Index Total Protein Albumin Urine WBC (Auto) Vancomycin Trough Salicylates Acetaminophen Plasma/Serum Alcohol Crossmatch 01/23/20 01/23/20 01/23/20 05:15 12:15 16:58 WBC RBC Hgb Hct MCH RDW Plt Count Lymph % (Auto) [place] % (Auto) [place] # Baso # Seg Neutrophils % Seg Neuts % (Manual) Lymphocytes % (Manual) Monocytes % (Manual) Seg Neutrophils # Seg Neutrophils # Man Lymphocytes # (Manual) Monocytes # (Manual) Eosinophils # (Manual) Basophils # (Manual) PT INR APTT ABG pH ABG pO2 ABG HCO3 ABG O2 Saturation ABG Base Excess ABG Hemoglobin Oxyhemoglobin Sodium Potassium Chloride Carbon Dioxide BUN Creatinine Glucose POC Glucose 117 H 129 H 156 H Lactic Acid Calcium Ionized Calcium Phosphorus Magnesium Total Bilirubin AST ALT Alkaline Phosphatase Ammonia Total Creatine Kinase CK-MB (CK-2) CK-MB (CK-2) Rel Index Total Protein Albumin Urine WBC (Auto) Vancomycin Trough Salicylates Acetaminophen Plasma/Serum Alcohol Crossmatch 01/23/20 01/23/20 01/24/20 21:17 23:47 04:47 WBC 17.8 H RBC 3.60 L Hgb Hct MCH RDW 16.2 H Plt Count 688 H Lymph % (Auto) 11.8 L [place] % (Auto) 7.5 H [place] # 1.3 H Baso # Seg Neutrophils % 79.9 H Seg Neuts % (Manual) Lymphocytes % (Manual) Monocytes % (Manual) Seg Neutrophils # 14.2 H Seg Neutrophils # Man Lymphocytes # (Manual) Monocytes # (Manual) Eosinophils # (Manual) Basophils # (Manual) PT INR APTT ABG pH ABG pO2 ABG HCO3 ABG O2 Saturation ABG Base Excess ABG Hemoglobin Oxyhemoglobin Sodium Potassium Chloride Carbon Dioxide BUN Creatinine Glucose POC Glucose 185 H 156 H Lactic Acid Calcium Ionized Calcium Phosphorus Magnesium Total Bilirubin AST ALT Alkaline Phosphatase Ammonia Total Creatine Kinase CK-MB (CK-2) CK-MB (CK-2) Rel Index Total Protein Albumin Urine WBC (Auto) Vancomycin Trough Salicylates Acetaminophen Plasma/Serum Alcohol Crossmatch 01/24/20 01/24/20 04:47 05:59 WBC RBC Hgb Hct MCH RDW Plt Count Lymph % (Auto) [place] % (Auto) [place] # Baso # Seg Neutrophils % Seg Neuts % (Manual) Lymphocytes % (Manual) Monocytes % (Manual) Seg Neutrophils # Seg Neutrophils # Man Lymphocytes # (Manual) Monocytes # (Manual) Eosinophils # (Manual) Basophils # (Manual) PT INR APTT ABG pH ABG pO2 ABG HCO3 ABG O2 Saturation ABG Base Excess ABG Hemoglobin Oxyhemoglobin Sodium 131 L Potassium Chloride 91.2 L Carbon Dioxide BUN 22 H Creatinine 0.3 L Glucose 123 H POC Glucose 147 H Lactic Acid Calcium 10.9 H Ionized Calcium Phosphorus Magnesium Total Bilirubin AST ALT Alkaline Phosphatase Ammonia Total Creatine Kinase CK-MB (CK-2) CK-MB (CK-2) Rel Index Total Protein Albumin Urine WBC (Auto) Vancomycin Trough Salicylates Acetaminophen Plasma/Serum Alcohol Crossmatch Allied health notes reviewed: nursing
--- NOTE | 2020-01-24 13:34 | Progress Note ---
Assessment and Plan Assessment and plan: The high probability of a clinically significant, sudden or life threatening deterioration of the [] system(s) required my full and direct attention, intervention and personal management. The aggregate critical care time was [] minutes. This time is in addition to time spent performing reported procedures but includes the following: [v] Data Review and interpretation cv Patient assessment and monitoring of vital signs [v]c Documentation [v] Medication orders and management - Patient Problems (1) Seizure disorder Current Visit: Yes Status: Acute Plan to address problem: No focal seizure disorder continue Kera. (2) Alcohol abuse Current Visit: Yes Status: Acute Plan to address problem: History of alcohol abuse. Patient does not have delirium tremors. Requires restraints. (3) Cardiac arrest with successful resuscitation Current Visit: Yes Status: Acute Plan to address problem: Status post cardiorespiratory arrest. 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 . Patient had intact corneal and cough reflex and withdrew lower extremities from pain. Unlikely however any meaningful recovery after extubation. Still appears to have anoxia still has severe anoxic encephal opathy. No new changes. Await placement at [facility] facility. (4) Elevated LFTs Current Visit: Yes Status: Acute Plan to address problem: LFTs not obtained on her last blood work. Obtain LFTs for Tuesday. Likely would not make and change any outcome with patient's prognosis. (5) UTI (urinary tract infection) Current Visit: Yes Status: Acute Plan to address problem: Continue antibiotics Rocephin completed yesterday.. No growth. Antibiotics discontinued. Medically stable. No evidence of fever. (6) HTN (hypertension) Current Visit: No Status: Acute Plan to address problem: Patient continues to have optimal control blood pressure. (7) Alcohol abuse Current Visit: Yes Status: Acute Plan to address problem: Patient off CIWA protocol. Hyperammonia level resolved. Was secondary to EtOH abuse. (8) Acute respiratory failure Current Visit: Yes Status: Acute Plan to address problem: Patient status post intubation PEG tube. Chest clear negative for pulmonary embolism. Awaiting placement. History Interval history: Patient 54-year-old with history of hypertension EtOH abuse tobacco abuse depression originally presented with cardiorespiratory arrest. Patient was found to have anoxic brain injury. Placed on PEG tube. At present patient in bed attempt to follow some commands. Can shake head and states she is not in pain. No new events overnight. Hospitalist Physical - Constitutional Vitals: Temp Pulse Resp BP Pulse Ox 98.0 F 123 H 18 105/58 28 L 01/24/20 11:50 01/24/20 11:50 01/24/20 11:50 01/24/20 11:50 01/24/20 12:41 General appearance: Present: no acute distress, cachectic, disheveled, other (Tracheostomy on T-piece) - EENT Eyes: Present: PERRL, EOM intact ENT: hearing intact, clear oral mucosa, poor dentition - Neck Neck: Present: supple - Respiratory Respiratory effort: normal Respiratory: bilateral: CTA, diminished - Cardiovascular Rhythm: regular - Extremities Extremities: no ischemia, No edema Extremity abnormal: other (Thin deconditioned) Peripheral Pulses: within normal limits - Abdominal General gastrointestinal: soft, normal bowel sounds, splenomegaly, other (Slightly distended protuberant. No pain.), no hepatomegaly - Psychiatric Psychiatric: cooperative, other (Encephalopathic attempts to make needs known.) - Neurologic Neurologic: CNII-XII intact, moves all extremities Results - Labs CBC & Chem 7: 01/24/20 04:47 01/24/20 04:47 Labs: Laboratory Last Values WBC 17.8 K/mm3 (4.5-11.0) H 01/24/20 04:47 RBC 3.60 M/mm3 (3.65-5.03) L 01/24/20 04:47 Hgb 10.1 gm/dl (10.1-14.3) 01/24/20 04:47 Hct 30.4 % (30.3-42.9) 01/24/20 04:47 MCV 85 fl (79-97) 01/24/20 04:47 MCH 28 pg (28-32) 01/24/20 04:47 MCHC 33 % (30-34) 01/24/20 04:47 RDW 16.2 % (13.2-15.2) H 01/24/20 04:47 Plt Count 688 K/mm3 (140-440) H 01/24/20 04:47 Lymph % (Auto) 11.8 % (13.4-35.0) L 01/24/20 04:47 [place] % (Auto) 7.5 % (0.0-7.3) H 01/24/20 04:47 Eos % (Auto) 0.4 % (0.0-4.3) 01/24/20 04:47 Baso % (Auto) 0.4 % (0.0-1.8) 01/24/20 04:47 Lymph # 2.1 K/mm3 (1.2-5.4) 01/24/20 04:47 [place] # 1.3 K/mm3 (0.0-0.8) H 01/24/20 04:47 Eos # 0.1 K/mm3 (0.0-0.4) 01/24/20 04:47 Baso # 0.1 K/mm3 (0.0-0.1) 01/24/20 04:47 Add Manual Diff Complete 12/25/19 03:47 Total Counted 200 12/25/19 03:47 Seg Neutrophils % 79.9 % (40.0-70.0) H 01/24/20 04:47 Seg Neuts % (Manual) 97.5 % (40.0-70.0) H 12/25/19 03:47 Band Neutrophils % 0 % 12/25/19 03:47 Lymphocytes % (Manual) 1.0 % (13.4-35.0) L 12/25/19 03:47 Reactive Lymphs % (Man) 0 % 12/25/19 03:47 Monocytes % (Manual) 1.5 % (0.0-7.3) 12/25/19 03:47 Eosinophils % (Manual) 0 % (0.0-4.3) 12/25/19 03:47 Basophils % (Manual) 0 % (0.0-1.8) 12/25/19 03:47 Metamyelocytes % 0 % 12/25/19 03:47 Myelocytes % 0 % 12/25/19 03:47 Promyelocytes % 0 % 12/25/19 03:47 Blast Cells % 0 % 12/25/19 03:47 Nucleated RBC % Not Reportable 12/25/19 03:47 Seg Neutrophils # 14.2 K/mm3 (1.8-7.7) H 01/24/20 04:47 Seg Neutrophils # Man 35.3 K/mm3 (1.8-7.7) H 12/25/19 03:47 Band Neutrophils # 0.0 K/mm3 12/25/19 03:47 Lymphocytes # (Manual) 0.4 K/mm3 (1.2-5.4) L 12/25/19 03:47 Abs React Lymphs (Man) 0.0 K/mm3 12/25/19 03:47 Monocytes # (Manual) 0.5 K/mm3 (0.0-0.8) 12/25/19 03:47 Eosinophils # (Manual) 0.0 K/mm3 (0.0-0.4) 12/25/19 03:47 Basophils # (Manual) 0.0 K/mm3 (0.0-0.1) 12/25/19 03:47 Metamyelocytes # 0.0 K/mm3 12/25/19 03:47 Myelocytes # 0.0 K/mm3 12/25/19 03:47 Promyelocytes # 0.0 K/mm3 12/25/19 03:47 Blast Cells # 0.0 K/mm3 12/25/19 03:47 Pathologist Review 12/13/19 07:48 WBC Morphology Not Reportable 12/25/19 03:47 Hypersegmented Neuts Not Reportable 12/25/19 03:47 Hyposegmented Neuts Not Reportable 12/25/19 03:47 Hypogranular Neuts Not Reportable 12/25/19 03:47 Smudge Cells Not Reportable 12/25/19 03:47 Toxic Granulation Not Reportable 12/25/19 03:47 Toxic Vacuolation Not Reportable 12/25/19 03:47 Dohle Bodies Not Reportable 12/25/19 03:47 Pelger-Huet Anomaly Not Reportable 12/25/19 03:47 Dominique Rods Not Reportable 12/25/19 03:47 Platelet Estimate Consistent w auto 12/25/19 03:47 Clumped Platelets Not Reportable 12/25/19 03:47 Plt Clumps, EDTA Not Reportable 12/25/19 03:47 Large Platelets Not Reportable 12/25/19 03:47 Giant Platelets Not Reportable 12/25/19 03:47 Platelet Satelliting Not Reportable 12/25/19 03:47 Plt Morphology Comment Not Reportable 12/25/19 03:47 RBC Morphology Not Reportable 12/25/19 03:47 Dimorphic RBCs Not Reportable 12/25/19 03:47 Polychromasia Not Reportable 12/25/19 03:47 Hypochromasia Not Reportable 12/25/19 03:47 Poikilocytosis Not Reportable 12/25/19 03:47 Anisocytosis 1+ 12/25/19 03:47 Microcytosis Not Reportable 12/25/19 03:47 Macrocytosis Not Reportable 12/25/19 03:47 Spherocytes Not Reportable 12/25/19 03:47 Pappenheimer Bodies Not Reportable 12/25/19 03:47 Sickle Cells Not Reportable 12/25/19 03:47 Target Cells Not Reportable 12/25/19 03:47 Tear Drop Cells Not Reportable 12/25/19 03:47 Ovalocytes Not Reportable 12/25/19 03:47 Helmet Cells Not Reportable 12/25/19 03:47 [place] Bodies Not Reportable 12/25/19 03:47 Anderson Rings Not Reportable 12/25/19 03:47 Jamshid Cells Not Reportable 12/25/19 03:47 Bite Cells Not Reportable 12/25/19 03:47 Crenated Cell Not Reportable 12/25/19 03:47 Elliptocytes Not Reportable 12/25/19 03:47 Acanthocytes (Spur) Not Reportable 12/25/19 03:47 Rouleaux Not Reportable 12/25/19 03:47 Hemoglobin C Crystals Not Reportable 12/25/19 03:47 Schistocytes Not Reportable 12/25/19 03:47 Malaria parasites Not Reportable 12/25/19 03:47 Gregg Bodies Not Reportable 12/25/19 03:47 Hem Pathologist Commnt No 12/25/19 03:47 PT 17.0 Sec. (12.2-14.9) H 11/23/19 03:47 INR 1.36 (0.87-1.13) H 11/23/19 03:47 APTT 128.2 Sec. (24.2-36.6) H* 11/23/19 03:47 Heparin Anti-Xa Level 0.31 U.I./ml (0.3-0.7) 11/23/19 09:03 ABG pH 7.429 pH Units (7.350-7.450) 01/09/20 08:51 ABG pCO2 39.1 mm Hg 01/09/20 08:51 ABG pO2 94.3 mm Hg (80.0-90.0) H 01/09/20 08:51 ABG HCO3 25.3 mmol/L (20.0-26.0) 01/09/20 08:51 ABG O2 Saturation 97.4 % (95.0-99.0) 01/09/20 08:51 ABG O2 Content 12.9 (0.0-44) 01/09/20 08:51 ABG Base Excess 1.0 mmol/L (-2.0-3.0) 01/09/20 08:51 ABG Hemoglobin 9.5 gm/dl (12.0-16.0) L 01/09/20 08:51 ABG Carboxyhemoglobin 1.3 % (0.0-5.0) 01/09/20 08:51 ABG Methemoglobin 0.4 % (0.0-1.5) 01/09/20 08:51 Oxyhemoglobin 95.7 % (95.0-99.0) 01/09/20 08:51 FiO2 35 % 01/09/20 08:51 Sodium 131 mmol/L (137-145) L 01/24/20 04:47 Potassium 4.4 mmol/L (3.6-5.0) 01/24/20 04:47 Chloride 91.2 mmol/L (98-107) L 01/24/20 04:47 Carbon Dioxide 27 mmol/L (22-30) 01/24/20 04:47 Anion Gap 17 mmol/L 01/24/20 04:47 BUN 22 mg/dL (7-17) H 01/24/20 04:47 Creatinine 0.3 mg/dL (0.7-1.2) L 01/24/20 04:47 Estimated GFR > 60 ml/min 01/24/20 04:47 BUN/Creatinine Ratio 73 % 01/24/20 04:47 Glucose 123 mg/dL (65-100) H 01/24/20 04:47 POC Glucose 114 (70-105) H 01/24/20 11:47 Lactic Acid 1.80 mmol/L (0.7-2.0) 11/25/19 05:05 Calcium 10.9 mg/dL (8.4-10.2) H 01/24/20 04:47 Ionized Calcium 4.5 mg/dL (4.8-5.6) L 11/23/19 06:32 Phosphorus 4.20 mg/dL (2.5-4.5) D 11/28/19 08:59 Magnesium 2.30 mg/dL (1.7-2.3) 11/29/19 13:41 Total Bilirubin 0.40 mg/dL (0.1-1.2) 12/13/19 07:48 AST 27 units/L (5-40) 12/13/19 07:48 ALT 26 units/L (7-56) 12/13/19 07:48 Alkaline Phosphatase 316 units/L (35-129) H 12/13/19 07:48 Ammonia 42.0 umol/L (25-60) 11/29/19 13:41 Total Creatine Kinase 139 units/L (30-135) H 11/22/19 23:27 CK-MB (CK-2) 8.3 ng/mL (0.0-4.0) H 11/22/19 23:27 CK-MB (CK-2) Rel Index 5.9 (0-4) H 11/22/19 23:27 Troponin T < 0.010 ng/mL (0.00-0.029) 11/22/19 23:27 Total Protein 6.8 g/dL (6.3-8.2) 12/13/19 07:48 Albumin 2.4 g/dL (3.9-5) L 12/13/19 07:48 Albumin/Globulin Ratio 0.5 % 12/13/19 07:48 Lipase 18 units/L (13-60) 11/23/19 00:34 Procalcitonin 1.09 ng/mL (<0.15) 11/23/19 04:53 Urine Color Yellow (Yellow) 12/16/19 Unknown Urine Turbidity Slightly-cloudy (Clear) 12/16/19 Unknown Urine pH 5.0 (5.0-7.0) 12/16/19 Unknown Ur Specific [place] 1.018 (1.003-1.030) 12/16/19 Unknown Urine Protein 30 mg/dl mg/dL (Negative) 12/16/19 Unknown Urine Glucose (UA) Neg mg/dL (Negative) 12/16/19 Unknown Urine Ketones Neg mg/dL (Negative) 12/16/19 Unknown Urine Blood Sm (Negative) 12/16/19 Unknown Urine Nitrite Neg (Negative) 12/16/19 Unknown Urine Bilirubin Neg (Negative) 12/16/19 Unknown Urine Urobilinogen < 2.0 mg/dL (<2.0) 12/16/19 Unknown Ur Leukocyte Esterase Neg (Negative) 12/16/19 Unknown Urine WBC (Auto) 6.0 /HPF (0.0-6.0) 12/16/19 Unknown Urine RBC (Auto) 9.0 /HPF (0.0-6.0) 12/16/19 Unknown U Epithel Cells (Auto) < 1.0 /HPF (0-13.0) 12/16/19 Unknown Urine Bacteria (Auto) 2+ /HPF (Negative) 11/22/19 23:17 Hyaline Casts 3 /LPF 12/16/19 Unknown Granular Casts 3 /LPF 12/16/19 Unknown Urine Mucus Few /HPF 12/16/19 Unknown Vancomycin Trough 33.8 ug/mL (5.0-20.0) H 12/21/19 08:56 Random Vancomycin 16.2 ug/mL (0-40.0) 12/24/19 04:31 Salicylates < 0.3 mg/dL (2.8-20.0) L 11/22/19 23:27 Urine Opiates Screen Presumptive negative 11/22/19 23:17 Urine Methadone Screen Presumptive negative 11/22/19 23:17 Acetaminophen < 5.0 ug/mL (10.0-30.0) L 11/22/19 23:27 Ur Barbiturates Screen Presumptive negative 11/22/19 23:17 Ur Phencyclidine Scrn Presumptive negative 11/22/19 23:17 Ur Amphetamines Screen Presumptive negative 11/22/19 23:17 U Benzodiazepines Scrn Presumptive negative 11/22/19 23:17 Urine Cocaine Screen Presumptive negative 11/22/19 23:17 U Marijuana (THC) Screen Presumptive negative 11/22/19 23:17 Drugs of Abuse Note Disclamer 11/22/19 23:17 Plasma/Serum Alcohol 0.08 % (0-0.07) H 11/22/19 23:27 Hepatitis A IgM Ab Non-reactive (NonReactive) 11/23/19 01:19 Hep Bs Antigen Non-reactive (Negative) 11/23/19 01:19 Hep B Core IgM Ab Non-reactive (NonReactive) 11/23/19 01:19 Hepatitis C Antibody Non-reactive (NonReactive) 11/23/19 01:19 Blood Type O POSITIVE 12/21/19 14:54 Antibody Screen Negative 12/21/19 14:54 Crossmatch See Detail 12/21/19 14:54 - Diagnostic Impressions Diagnostic Impressions: Echocardiogram 11/23/19 03:58 Transthoracic Echocardiogram Indication: Cardiac arrest BP: 131/89 HR: 115 Conclusions *The study quality is technically difficult. *Global left ventricular wall motion and contractility are within normal limits. *The estimated ejection fraction is 55-60%. *Abnormal left ventricular diastolic filling is observed, consistent with impaired relaxation. *There is no pericardial effusion. Findings Procedure Info: The study quality is technically difficult. The study was technically limited due to the patient's inability to lay in the left lateral decubitus position. Left Ventricle: The left ventricular chamber size is normal. There is no left ventricular hypertrophy. Global left ventricular wall motion and contractility are within normal limits. Global left ventricular systolic function is normal. The estimated ejection fraction is 55-60%. Abnormal left ventricular diastolic filling is observed, consistent with impaired relaxation. Left Atrium: The left atrial chamber size is normal. Aortic Valve: The aortic valve leaflets are mildly thickened. Mitral Valve: The mitral valve leaflets are mildly thickened. There is no evidence of mitral regurgitation. Tricuspid Valve: The tricuspid valve leaflets are normal. There is trace tricuspid regurgitation. The right ventricular systolic pressure is calculated at 33 mmHg. Pulmonic Valve: The pulmonic valve appears normal. Pericardium: The pericardium appears normal. There is no pericardial effusion. Aorta: The aorta appears normal. Venous: The inferior vena cava appears normal in size. Measurements Chambers 2D Name Value Normal Range IVSd (2D) 0.94 cm (0.6 - 1.1) LVPWd (2D) 0.81 cm (0.6 - 1.1) LVIDd (2D) 3.6 cm (3.7 - 5.6) LVIDs (2D) 2.27 cm (2 - 3.8) LV FS (2D) 36.93 % - EF Teichholz (2D) 67.76 % - Ao root diameter (2D) 3.03 cm (2 - 3.7) Volumes/Mass Name Value Normal Range LA ESV SP 4CH (A/L) 16.89 ml - LA ESV SP 4CH (MOD) 15.52 ml - Diastolic/Systolic Function Name Value Normal Range MV E-wave Vmax 0.55 m/sec - MV deceleration time 200.89 msec - MV A-wave Vmax 0.68 m/sec - MV E:A ratio 0.82 ratio - Aortic Valve Name Value Normal Range AV Vmax 1.1 m/sec - AV VTI 15.9 cm - AV peak gradient 4.86 mmHg - AV mean gradient 2.59 mmHg - LVOT diameter 2 cm - LVOT Vmax 1.03 m/sec - LVOT VTI 15.87 cm - LVOT peak gradient 4.24 mmHg - LVOT mean gradient 2.41 mmHg - SV LVOT 49.77 ml - JOSÉ MIGUEL (continuity Vmax) 2.93 cm2 - JOSÉ MIGUEL (continuity VTI) 3.13 cm2 - Tricuspid Valve Name Value Normal Range TR Vmax 2.74 m/sec - TR peak gradient 303 mmHg - RAP 3 mmHg - RVSP 33 mmHg - IVC diameter 1.77 cm (1.2 - 2.3) Pulmonic Valve/Qp:Qs Name Value Normal Range PV Vmax 0.77 m/sec - PV peak gradient 2.4 mmHg - PV acceleration time 114.18 msec - Echocardiogram Limited Views 12/17/19 14:53 Transthoracic Echocardiogram Indication: R/O Vegetations BP: 144/83 HR: 133 Conclusions *Global left ventricular systolic function is mildly decreased. *The estimated ejection fraction is 45-50%. *A trivial pericardial effusion is visualized. Findings Left Ventricle: The left ventricular chamber size is normal. Global left ventricular systolic function is mildly decreased. The estimated ejection fraction is 45-50%. Left Atrium: The left atrial chamber size is normal. Right Ventricle: The right ventricular cavity size is normal. Right Atrium: The right atrial cavity size is normal. Aortic Valve: The aortic valve is not well visualized. There is no evidence of aortic regurgitation. Mitral Valve: The mitral valve leaflets are mildly thickened. There is trace of mitral regurgitation. Tricuspid Valve: The tricuspid valve leaflets are mildly thickened. There is trace tricuspid regurgitation. The right ventricular systolic pressure is calculated at 29 mmHg. Pulmonic Valve: The pulmonic valve is not well visualized. There is no evidence of pulmonic regurgitation. Pericardium: A trivial pericardial effusion is visualized. Aorta: There is no dilatation of the ascending aorta. There is no dilatation of the aortic root. Venous: The inferior vena cava appears normal in size. There is a greater than 50% respiratory change in the inferior vena cava dimension. Measurements Chambers 2D Name Value Normal Range IVSd (2D) 0.83 cm (0.6 - 1.1) LVPWd (2D) 0.98 cm (0.6 - 1.1) LVIDd (2D) 3.71 cm (3.7 - 5.6) LVIDs (2D) 2.93 cm (2 - 3.8) LV FS (2D) 21.12 % - EF Teichholz (2D) 43.71 % - Ao root diameter (2D) 3.02 cm (2 - 3.7) Volumes/Mass Name Value Normal Range LA ESV SP 4CH (A/L) 36.8 ml - LA ESV SP 2CH (A/L) 45.89 ml - LA ESV BP (A/L) 42.35 ml - LA ESV BP (A/L) index 26.63 ml/m2 - LA ESV SP 4CH (MOD) 34.42 ml - LA ESV SP 2CH (MOD) 44.21 ml - LA ESV BP (MOD) 39.82 ml - LA ESV BP (MOD) index 25.05 ml/m2 - Aortic Valve Name Value Normal Range LVOT diameter 1.63 cm - Tricuspid Valve Name Value Normal Range TR Vmax 2.56 m/sec - TR peak gradient 26 mmHg - RAP 3 mmHg - RVSP 29 mmHg - IVC diameter 1.83 cm (1.2 - 2.3) [place]/IV: Voiding Method External Female Catheter IV Catheter Type [Forearm] Peripheral IV IV Catheter Type [Left Forearm INT / Saline Lock ] IV Catheter Type [Right Peripheral IV Antecubital] IV Catheter Type [Right Hand] Peripheral IV IV Catheter Type [Right Wrist] Peripheral IV IV Catheter Type [Left Wrist] Peripheral IV IV Catheter Type [Left Peripheral IV Antecubital] IV Catheter Type [Right INT / Saline Lock Forearm] IV Catheter Type [Left Hand] Peripheral IV Active Medications - Current Medications Current Medications: Generic Name Dose Route Start Last Admin Trade Name Freq PRN Reason Stop Dose Admin Acetaminophen 650 mg 12/06/19 10:25 01/19/20 00:30 Tylenol FEEDTUBE 650 mg Q6H PRN Administration TEMP >/=100.3 Acetylcysteine 200 mg 01/24/20 20:00 Mucomyst Inhalation INHALATION BIDRT LUCHO Lipase/Protease/Amylase 1 each 11/23/19 11:[address] 10,500 Unit FEEDTUBE PRN PRN Use w/ sod bicarb for FT Glycopyrrolate 2 mg 12/31/19 20:00 01/24/20 10:36 Robinul PO 2 mg TID LUCHO Administration Hydralazine HCl 10 mg 11/24/19 00:45 12/18/19 13:25 Apresoline IV 10 mg Q6H PRN Administration SBP > 160 Hydroxyzine Pamoate 25 mg 12/06/19 10:00 01/24/20 10:34 Vistaril PO 25 mg BID LUCHO Administration Lansoprazole 30 mg 11/27/19 10:00 01/24/20 10:33 Prevacid Solutab FEEDTUBE 30 mg QDAY LUCHO Administration Levalbuterol HCl 0.63 mg 01/24/20 14:00 Xopenex IH Q6HRT LUCHO Levetiracetam 500 mg 11/29/19 10:00 01/24/20 10:34 Keppra PO 500 mg BID LUCHO Administration Mirtazapine 30 mg 12/06/19 10:00 01/24/20 10:34 Remeron PO 30 mg DAILY LUCHO Administration Morphine Sulfate 2 mg 12/12/19 18:40 01/20/20 08:59 Morphine IV 2 mg Q4H PRN Administration Pain, Moderate (4-6) Ondansetron HCl 4 mg 12/10/19 07:53 01/06/20 10:53 Zofran IV 4 mg Q4H PRN Administration Nausea And Vomiting Quetiapine Fumarate 100 mg 01/09/20 21:41 01/23/20 22:02 Seroquel FEEDTUBE 100 mg QHS LUCHO Administration Sertraline HCl 25 mg 01/01/20 10:00 01/24/20 10:33 Zoloft PO 25 mg QDAY LUCHO Administration Simple Syrup 15 ml 11/23/19 11:50 Simple Syrup FEEDTUBE PRN PRN Hypoglycemia BG<70 Simple Syrup 30 ml 11/23/19 11:50 Simple Syrup FEEDTUBE PRN PRN Hypoglycemia Sodium Bicarbonate 325 mg 11/23/19 11:50 Sodium Bicarbonate FEEDTUBE PRN PRN For Clogged Feeding Tube Tamsulosin HCl 0.4 mg 12/14/19 13:00 01/24/20 10:34 Flomax PO 0.4 mg QDAY LUCHO Administration Nutrition/Malnutrition Assess - Dietary Evaluation Nutrition/Malnutrition Findings: Nutrition Notes Start: 11/23/19 11:29 Freq: Status: Active Protocol: Document 01/22/20 12:39 LM (Rec: 01/22/20 12:42 LM [id number]) Nutrition Notes Current Diagnosis Hypertension Other Pertinent Diagnosis Cardaic arrest, ETOH dependence, UTI Current Diet Jevity 1.2 at 55ml/hr Labs/Tests Reviewed Pertinent Medications Reviewed Height 5 ft 6 in Weight 54.1 kg [place] Body Weight (kg) 59.09 BMI 19.2 Weight change and time frame wt change noted Subjective/Other Information Jevity running at 55ml/hr. Pt tolerating TF. Percent of energy/protein needs met: 94%/100% Burn Absent Trauma Absent GI Symptoms None Current % PO Negligible Minimum of two criteria Yes Interpretation of Weight Loss (severe) >2% in 1 week Muscle Mass Mild Depletion (non-severe) #2 Nutrition Diagnosis Malnutrition Diagnosis Progress(for reassessment Continues documentation) #1 Nutrition Diagnosis Inadequate oral intake Diagnosis Progress(for reassessment Continues documentation) Is patient on ventilator? No Is Patient Ambulatory and/or Out of Bed No REE-([facility]-confined to bed) 1393.836 Kcal/Kg value to use for calculation 31 Approximate Energy Requirements Using 1677 kcal/Kg Calculation Used for Recommendations [facility] Additional Notes Protein: 64-80g (1.2-1.5g/kg) Fluid: 1 ml/kcal Nutrition Intervention Change Diet Order: Continue TF Nutrition Support: Jevity 1.2 at 55ml/hr Flush 50ml q6h for hyponatremia Flush 90ml q4h once resolved Kcal 1,584 Protein (gm) 73 Fluid (mL) 1,065 Goal #1 TF tolerance Goal #2 Meet at least 80% of energy and protein needs via TF Anticipated Discharge Needs: TF Follow-Up By: 01/29/20 Additional Comments F/U for TF tolerance
[2020-01-24] MEDS: LEVALBUTEROL 0.63 MG/3 ML NEBU IH SCH ×3 (14:06→21:33)
[2020-01-24] MEDS: QUEtiapine 100 MG TAB FEEDTUBE SCH (22:40)
[2020-01-25] MEDS: LEVALBUTEROL 0.63 MG/3 ML NEBU IH SCH ×4 (03:10→19:52)
[2020-01-25] MEDS: GLYCOPYRROLATE 1 MG TAB PO SCH ×3 (09:00→22:21)
[2020-01-25] MEDS: ACETYLCYSTEINE 20% 200 MG/1 ML *FOR INHALATION USE INHALATION SCH ×2 (09:50→19:52)
[2020-01-25] MEDS: hydrOXYzine PAMOATE 25 MG CAP PO SCH ×2 (10:42→22:21)
[2020-01-25] MEDS: LANSOPRAZOLE 30 MG SOLUTAB FEEDTUBE SCH (10:43)
[2020-01-25] MEDS: MIRTAZAPINE 30 MG TAB PO SCH (10:43)
[2020-01-25] MEDS: TAMSULOSIN 0.4 MG CAP PO SCH (10:43)
[2020-01-25] MEDS: levETIRAcetam 500 MG/5 ML ORAL LIQD PO SCH ×2 (10:43→22:21)
[2020-01-25] MEDS: SERTRALINE 50 MG TAB PO SCH (10:43)
--- NOTE | 2020-01-25 13:01 | Progress Note ---
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 motility - Continue VTE and Stress ulcer prophylaxis - Continue enteric nutritional support - Monitor glycemic control, with target blood glucose 140-180 mg/dL while c ritically ill (Avoid hypoglycemia) - ABG and CXR prn - Continue to avoid nephrotoxins, adjust all medications fro GFR and CrCL - Continue to avoid benzodiazepines , as much as possible, to reduce the possibility of delirium - Continue prn analgesia per CPOT score - Continue to maintain of sleep-wake cycle, avoid delirium - PT/OT/ROM exercises- awaiting PT/OT evaluation - Continue mobility protocol and skin assessment per protocol for pressure ulcer prevention - Continue to monitor for clinical seizures - Continue Nicotine withdrawal precautions, alcohol withdrawal precautions - continue other care per attending / other consultants ..... re-evaluate in am & prn CONDITION: FAIR PROGNOSIS: IMPROVED CODE STATUS: FULL CODE Subjective Date of service: 01/25/20 Principal diagnosis: Ac cardiopulmonary arrest; Ac hypoxemic resp failure; Acute encephalopathy Interval history: Patient is seen today for: Acute cardiopulmonary arrest with ROSC; Acute hypoxemic respiratory failure; Acute metabolic-toxic encephalopathy; Ischemic hepatitis; Leucocytosis with lactic acidosis; Tobacco use disorder; Alcohol use Disorder; Hypokalemia; High grade fevers Seen and examined at bedside; 24hour events reviewed; nursing and respiratory care staff consulted; no adverse overnight events reported to me; resting peacefully in bed; tolerating PMV; no new issues otherwise Objective Vital Signs - 12hr 01/25/20 01/25/20 01/25/20 03:13 04:00 04:17 Temperature 98.0 F Pulse Rate 118 H 118 H Pulse Rate [ 109 H Anterior Left Throughout] Pulse Rate [ 108 H Anterior Right Throughout] Respiratory 18 Rate Respiratory 18 Rate [Anterior Left Throughout ] Respiratory 20 Rate [Anterior Right Throughout] Blood Pressure 113/78 O2 Sat by Pulse 96 Oximetry 01/25/20 01/25/20 01/25/20 09:45 10:00 12:24 Temperature 98.6 F 98.6 F Pulse Rate 98 H 114 H Pulse Rate [ Anterior Left Throughout] Pulse Rate [ Anterior Right Throughout] Respiratory 18 18 18 Rate Respiratory Rate [Anterior Left Throughout ] Respiratory Rate [Anterior Right Throughout] Blood Pressure 113/62 116/75 O2 Sat by Pulse 98 98 96 Oximetry Constitutional: no acute distress, other (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, with midline tracheostomy and with normal respiratory effort aT REST) Eyes: non-icteric ENT: oropharynx moist, other (s/p trach) Neck: supple, no lymphadenopathy, no JVD Effort: mildly labored Ascultation: Bilateral: diminished breath sounds, rhonchi Percussion: Bilateral: not dull Cardiovascular: regular rate and rhythm (tachycardia), other (S1,S2) Gastrointestinal: normoactive bowel sounds, soft, non-tender, non-distended Integumentary: normal Extremities: no cyanosis, no edema, pulses normal, no ischemia or petechiae Neurologic: other (awake; folowing simple commands) Psychiatric: other (Psychiatric: Unable to assess re: AMS) CBC and BMP: 01/26/20 05:59 01/26/20 05:59 ABG, PT/INR, D-dimer: ABG ABG pH 7.429 pH Units (7.350-7.450) 01/09/20 08:51 ABG pCO2 39.1 mm Hg 01/09/20 08:51 ABG pO2 94.3 mm Hg (80.0-90.0) H 01/09/20 08:51 ABG O2 Saturation 97.4 % (95.0-99.0) 01/09/20 08:51 PT/INR, D-dimer PT 17.0 Sec. (12.2-14.9) H 11/23/19 03:47 INR 1.36 (0.87-1.13) H 11/23/19 03:47 Abnormal lab findings: Abnormal Labs 11/22/19 11/22/19 11/22/19 23:17 23:18 23:27 WBC 21.2 H RBC 3.59 L Hgb 9.8 L Hct MCH 27 L RDW 18.6 H Plt Count 454 H Lymph % (Auto) Swain % (Auto) Swain # Baso # Seg Neutrophils % Seg Neuts % (Manual) 86.0 H Lymphocytes % (Manual) 9.0 L Monocytes % (Manual) Seg Neutrophils # Seg Neutrophils # Man 18.2 H Lymphocytes # (Manual) Monocytes # (Manual) 1.1 H Eosinophils # (Manual) Basophils # (Manual) PT INR APTT ABG pH ABG pO2 ABG HCO3 ABG O2 Saturation ABG Base Excess ABG Hemoglobin Oxyhemoglobin Sodium Potassium Chloride Carbon Dioxide BUN Creatinine Glucose POC Glucose 53 L Lactic Acid Calcium Ionized Calcium Phosphorus Magnesium Total Bilirubin AST ALT Alkaline Phosphatase Ammonia Total Creatine Kinase CK-MB (CK-2) CK-MB (CK-2) Rel Index Total Protein Albumin Urine WBC (Auto) 40.0 H Vancomycin Trough Salicylates Acetaminophen Plasma/Serum Alcohol Crossmatch 11/22/19 11/22/19 11/22/19 23:27 23:27 23:27 WBC RBC Hgb Hct MCH RDW Plt Count Lymph % (Auto) Swain % (Auto) Swain # Baso # Seg Neutrophils % Seg Neuts % (Manual) Lymphocytes % (Manual) Monocytes % (Manual) Seg Neutrophils # Seg Neutrophils # Man Lymphocytes # (Manual) Monocytes # (Manual) Eosinophils # (Manual) Basophils # (Manual) PT INR APTT ABG pH ABG pO2 ABG HCO3 ABG O2 Saturation ABG Base Excess ABG Hemoglobin Oxyhemoglobin Sodium Potassium 2.4 L* Chloride 85.1 L Carbon Dioxide 19 L BUN Creatinine 0.5 L Glucose 261 H POC Glucose Lactic Acid Calcium Ionized Calcium Phosphorus Magnesium Total Bilirubin AST 609 H ALT 152 H Alkaline Phosphatase 160 H Ammonia 117.0 H Total Creatine Kinase 139 H CK-MB (CK-2) 8.3 H CK-MB (CK-2) Rel Index 5.9 H Total Protein Albumin 3.6 L Urine WBC (Auto) Vancomycin Trough Salicylates < 0.3 L Acetaminophen Plasma/Serum Alcohol Crossmatch 11/22/19 11/22/19 11/23/19 23:27 23:27 01:10 WBC RBC Hgb Hct MCH RDW Plt Count Lymph % (Auto) Swain % (Auto) Swain # Baso # Seg Neutrophils % Seg Neuts % (Manual) Lymphocytes % (Manual) Monocytes % (Manual) Seg Neutrophils # Seg Neutrophils # Man Lymphocytes # (Manual) Monocytes # (Manual) Eosinophils # (Manual) Basophils # (Manual) PT INR APTT ABG pH 7.273 L ABG pO2 209.7 H ABG HCO3 ABG O2 Saturation 99.2 H ABG Base Excess -3.9 L ABG Hemoglobin 10.6 L Oxyhemoglobin 93.9 L Sodium Potassium Chloride Carbon Dioxide BUN Creatinine Glucose POC Glucose Lactic Acid Calcium Ionized Calcium Phosphorus Magnesium Total Bilirubin AST ALT Alkaline Phosphatase Ammonia Total Creatine Kinase CK-MB (CK-2) CK-MB (CK-2) Rel Index Total Protein Albumin Urine WBC (Auto) Vancomycin Trough Salicylates Acetaminophen < 5.0 L Plasma/Serum Alcohol 0.08 H Crossmatch 11/23/19 11/23/19 11/23/19 01:19 01:19 03:47 WBC RBC Hgb Hct MCH RDW Plt Count Lymph % (Auto) Swain % (Auto) Swain # Baso # Seg Neutrophils % Seg Neuts % (Manual) Lymphocytes % (Manual) Monocytes % (Manual) Seg Neutrophils # Seg Neutrophils # Man Lymphocytes # (Manual) Monocytes # (Manual) Eosinophils # (Manual) Basophils # (Manual) PT 16.3 H INR 1.29 H APTT ABG pH ABG pO2 ABG HCO3 ABG O2 Saturation ABG Base Excess ABG Hemoglobin Oxyhemoglobin Sodium Potassium Chloride Carbon Dioxide BUN Creatinine Glucose POC Glucose Lactic Acid 2.10 H* 5.00 H* Calcium Ionized Calcium Phosphorus Magnesium Total Bilirubin AST ALT Alkaline Phosphatase Ammonia Total Creatine Kinase CK-MB (CK-2) CK-MB (CK-2) Rel Index Total Protein Albumin Urine WBC (Auto) Vancomycin Trough Salicylates Acetaminophen Plasma/Serum Alcohol Crossmatch 11/23/19 11/23/19 11/23/19 03:47 03:47 04:53 WBC RBC Hgb 9.4 L Hct MCH RDW Plt Count Lymph % (Auto) Swain % (Auto) Swain # Baso # Seg Neutrophils % Seg Neuts % (Manual) Lymphocytes % (Manual) Monocytes % (Manual) Seg Neutrophils # Seg Neutrophils # Man Lymphocytes # (Manual) Monocytes # (Manual) Eosinophils # (Manual) Basophils # (Manual) PT 17.0 H INR 1.36 H APTT 128.2 H* ABG pH ABG pO2 ABG HCO3 ABG O2 Saturation ABG Base Excess ABG Hemoglobin Oxyhemoglobin Sodium Potassium Chloride Carbon Dioxide 18 L BUN Creatinine 0.5 L Glucose 105 H POC Glucose Lactic Acid Calcium 8.3 L Ionized Calcium Phosphorus 2.40 L Magnesium Total Bilirubin 1.30 H AST 761 H ALT 158 H Alkaline Phosphatase 143 H Ammonia Total Creatine Kinase CK-MB (CK-2) CK-MB (CK-2) Rel Index Total Protein Albumin 2.8 L Urine WBC (Auto) Vancomycin Trough Salicylates Acetaminophen Plasma/Serum Alcohol Crossmatch 11/23/19 11/23/19 11/23/19 05:12 06:32 06:32 WBC 16.8 H RBC 3.31 L Hgb 8.9 L Hct 28.7 L MCH 27 L RDW 18.6 H Plt Count Lymph % (Auto) Swain % (Auto) Swain # Baso # Seg Neutrophils % Seg Neuts % (Manual) 94.0 H Lymphocytes % (Manual) 1.0 L Monocytes % (Manual) Seg Neutrophils # Seg Neutrophils # Man 15.8 H Lymphocytes # (Manual) 0.2 L Monocytes # (Manual) Eosinophils # (Manual) Basophils # (Manual) PT INR APTT ABG pH ABG pO2 ABG HCO3 ABG O2 Saturation ABG Base Excess -3.2 L ABG Hemoglobin 9.0 L Oxyhemoglobin 93.6 L Sodium Potassium Chloride Carbon Dioxide BUN Creatinine Glucose POC Glucose Lactic Acid Calcium Ionized Calcium 4.5 L Phosphorus Magnesium Total Bilirubin AST ALT Alkaline Phosphatase Ammonia Total Creatine Kinase CK-MB (CK-2) CK-MB (CK-2) Rel Index Total Protein Albumin Urine WBC (Auto) Vancomycin Trough Salicylates Acetaminophen Plasma/Serum Alcohol Crossmatch 11/23/19 11/24/19 11/24/19 06:32 04:35 04:35 WBC RBC Hgb Hct MCH RDW Plt Count Lymph % (Auto) Swain % (Auto) Swain # Baso # Seg Neutrophils % Seg Neuts % (Manual) Lymphocytes % (Manual) Monocytes % (Manual) Seg Neutrophils # Seg Neutrophils # Man Lymphocytes # (Manual) Monocytes # (Manual) Eosinophils # (Manual) Basophils # (Manual) PT INR APTT ABG pH ABG pO2 ABG HCO3 ABG O2 Saturation ABG Base Excess ABG Hemoglobin Oxyhemoglobin Sodium Potassium Chloride Carbon Dioxide BUN Creatinine Glucose POC Glucose Lactic Acid 3.30 H* Calcium Ionized Calcium Phosphorus Magnesium 1.40 L Total Bilirubin AST ALT Alkaline Phosphatase Ammonia 98.0 H Total Creatine Kinase CK-MB (CK-2) CK-MB (CK-2) Rel Index Total Protein Albumin Urine WBC (Auto) Vancomycin Trough Salicylates Acetaminophen Plasma/Serum Alcohol Crossmatch 11/24/19 11/25/19 11/25/19 05:22 04:34 05:05 WBC 17.3 H RBC 2.88 L Hgb 7.8 L Hct 24.6 L MCH 27 L RDW 18.5 H Plt Count Lymph % (Auto) 7.7 L Swain % (Auto) 9.7 H Swain # 1.7 H Baso # Seg Neutrophils % 82.2 H Seg Neuts % (Manual) Lymphocytes % (Manual) Monocytes % (Manual) Seg Neutrophils # 14.2 H Seg Neutrophils # Man Lymphocytes # (Manual) Monocytes # (Manual) Eosinophils # (Manual) Basophils # (Manual) PT INR APTT ABG pH 7.475 H ABG pO2 ABG HCO3 29.4 H 32.3 H ABG O2 Saturation ABG Base Excess 5.4 H 6.9 H ABG Hemoglobin 9.0 L 10.6 L Oxyhemoglobin 94.3 L Sodium Potassium Chloride Carbon Dioxide BUN Creatinine Glucose POC Glucose Lactic Acid Calcium Ionized Calcium Phosphorus Magnesium Total Bilirubin AST ALT Alkaline Phosphatase Ammonia Total Creatine Kinase CK-MB (CK-2) CK-MB (CK-2) Rel Index Total Protein Albumin Urine WBC (Auto) Vancomycin Trough Salicylates Acetaminophen Plasma/Serum Alcohol Crossmatch 11/25/19 11/25/19 11/26/19 05:05 22:46 03:31 WBC RBC Hgb Hct MCH RDW Plt Count Lymph % (Auto) Swain % (Auto) Swain # Baso # Seg Neutrophils % Seg Neuts % (Manual) Lymphocytes % (Manual) Monocytes % (Manual) Seg Neutrophils # Seg Neutrophils # Man Lymphocytes # (Manual) Monocytes # (Manual) Eosinophils # (Manual) Basophils # (Manual) PT INR APTT ABG pH 7.459 H ABG pO2 ABG HCO3 34.2 H ABG O2 Saturation ABG Base Excess 9.4 H ABG Hemoglobin 7.6 L Oxyhemoglobin 94.8 L Sodium 152 H D 147 H Potassium 2.3 L* D 2.8 L* D Chloride 107.8 H Carbon Dioxide 31 H D 33 H BUN Creatinine 0.6 L 0.6 L Glucose 148 H 177 H POC Glucose Lactic Acid Calcium Ionized Calcium Phosphorus Magnesium Total Bilirubin AST 105 H ALT 71 H Alkaline Phosphatase 155 H Ammonia Total Creatine Kinase CK-MB (CK-2) CK-MB (CK-2) Rel Index Total Protein 5.2 L D Albumin 2.9 L Urine WBC (Auto) Vancomycin Trough Salicylates Acetaminophen Plasma/Serum Alcohol Crossmatch 11/26/19 11/26/19 11/27/19 08:24 08:24 04:20 WBC 12.0 H RBC 3.00 L Hgb 8.0 L 9.3 L Hct 25.9 L 29.7 L MCH 27 L RDW 18.5 H Plt Count Lymph % (Auto) Swain % (Auto) Swain # Baso # Seg Neutrophils % Seg Neuts % (Manual) 89.0 H Lymphocytes % (Manual) 4.0 L Monocytes % (Manual) Seg Neutrophils # Seg Neutrophils # Man 10.7 H Lymphocytes # (Manual) 0.5 L Monocytes # (Manual) Eosinophils # (Manual) Basophils # (Manual) PT INR APTT ABG pH ABG pO2 ABG HCO3 ABG O2 Saturation ABG Base Excess ABG Hemoglobin Oxyhemoglobin Sodium 146 H Potassium 3.4 L D Chloride Carbon Dioxide BUN Creatinine 0.5 L Glucose 165 H POC Glucose Lactic Acid Calcium Ionized Calcium Phosphorus Magnesium Total Bilirubin AST 57 H ALT Alkaline Phosphatase 166 H Ammonia Total Creatine Kinase CK-MB (CK-2) CK-MB (CK-2) Rel Index Total Protein Albumin 2.9 L Urine WBC (Auto) Vancomycin Trough Salicylates Acetaminophen Plasma/Serum Alcohol Crossmatch 11/27/19 11/27/19 11/27/19 04:28 04:28 04:42 WBC RBC Hgb Hct MCH RDW Plt Count Lymph % (Auto) Swain % (Auto) Swain # Baso # Seg Neutrophils % Seg Neuts % (Manual) Lymphocytes % (Manual) Monocytes % (Manual) Seg Neutrophils # Seg Neutrophils # Man Lymphocytes # (Manual) Monocytes # (Manual) Eosinophils # (Manual) Basophils # (Manual) PT INR APTT ABG pH 7.470 H ABG pO2 74.0 L ABG HCO3 33.8 H ABG O2 Saturation ABG Base Excess 9.1 H ABG Hemoglobin 8.7 L Oxyhemoglobin 94.7 L Sodium 146 H Potassium 2.9 L* Chloride Carbon Dioxide BUN 25 H Creatinine Glucose 213 H POC Glucose Lactic Acid Calcium Ionized Calcium Phosphorus 1.00 L Magnesium Total Bilirubin AST ALT Alkaline Phosphatase Ammonia Total Creatine Kinase CK-MB (CK-2) CK-MB (CK-2) Rel Index Total Protein Albumin Urine WBC (Auto) Vancomycin Trough Salicylates Acetaminophen Plasma/Serum Alcohol Crossmatch 11/27/19 11/27/19 11/27/19 05:37 12:20 15:46 WBC RBC Hgb Hct MCH RDW Plt Count Lymph % (Auto) Swain % (Auto) Swain # Baso # Seg Neutrophils % Seg Neuts % (Manual) Lymphocytes % (Manual) Monocytes % (Manual) Seg Neutrophils # Seg Neutrophils # Man Lymphocytes # (Manual) Monocytes # (Manual) Eosinophils # (Manual) Basophils # (Manual) PT INR APTT ABG pH ABG pO2 ABG HCO3 ABG O2 Saturation ABG Base Excess ABG Hemoglobin Oxyhemoglobin Sodium 146 H Potassium 3.5 L D Chloride Carbon Dioxide BUN 24 H Creatinine 0.6 L Glucose 187 H POC Glucose 117 H 220 H Lactic Acid Calcium Ionized Calcium Phosphorus Magnesium Total Bilirubin AST ALT Alkaline Phosphatase Ammonia Total Creatine Kinase CK-MB (CK-2) CK-MB (CK-2) Rel Index Total Protein Albumin Urine WBC (Auto) Vancomycin Trough Salicylates Acetaminophen Plasma/Serum Alcohol Crossmatch 11/27/19 11/28/19 11/28/19 17:28 05:00 05:02 WBC RBC Hgb Hct MCH RDW Plt Count Lymph % (Auto) Swain % (Auto) Swain # Baso # Seg Neutrophils % Seg Neuts % (Manual) Lymphocytes % (Manual) Monocytes % (Manual) Seg Neutrophils # Seg Neutrophils # Man Lymphocytes # (Manual) Monocytes # (Manual) Eosinophils # (Manual) Basophils # (Manual) PT INR APTT ABG pH ABG pO2 72.4 L ABG HCO3 33.6 H ABG O2 Saturation 94.1 L ABG Base Excess 7.3 H ABG Hemoglobin Oxyhemoglobin 91.8 L Sodium 146 H Potassium 3.3 L Chloride Carbon Dioxide BUN 25 H Creatinine 0.6 L Glucose 176 H POC Glucose 198 H Lactic Acid Calcium Ionized Calcium Phosphorus Magnesium Total Bilirubin AST ALT Alkaline Phosphatase Ammonia Total Creatine Kinase CK-MB (CK-2) CK-MB (CK-2) Rel Index Total Protein Albumin Urine WBC (Auto) Vancomycin Trough Salicylates Acetaminophen Plasma/Serum Alcohol Crossmatch 11/28/19 11/28/19 11/29/19 05:02 18:55 10:43 WBC 15.2 H 19.0 H RBC 3.06 L 3.01 L Hgb 8.3 L 8.3 L Hct 27.0 L 26.4 L MCH 27 L RDW 19.0 H 19.7 H Plt Count 479 H 611 H Lymph % (Auto) Swain % (Auto) Swain # Baso # Seg Neutrophils % Seg Neuts % (Manual) 92.0 H Lymphocytes % (Manual) 2.0 L Monocytes % (Manual) Seg Neutrophils # Seg Neutrophils # Man 14.0 H Lymphocytes # (Manual) 0.3 L Monocytes # (Manual) Eosinophils # (Manual) Basophils # (Manual) PT INR APTT ABG pH ABG pO2 ABG HCO3 ABG O2 Saturation ABG Base Excess ABG Hemoglobin Oxyhemoglobin Sodium Potassium Chloride Carbon Dioxide BUN Creatinine Glucose POC Glucose 138 H Lactic Acid Calcium Ionized Calcium Phosphorus Magnesium Total Bilirubin AST ALT Alkaline Phosphatase Ammonia Total Creatine Kinase CK-MB (CK-2) CK-MB (CK-2) Rel Index Total Protein Albumin Urine WBC (Auto) Vancomycin Trough Salicylates Acetaminophen Plasma/Serum Alcohol Crossmatch 11/29/19 11/29/19 11/29/19 10:43 12:27 19:25 WBC RBC Hgb Hct MCH RDW Plt Count Lymph % (Auto) Swain % (Auto) Swain # Baso # Seg Neutrophils % Seg Neuts % (Manual) Lymphocytes % (Manual) Monocytes % (Manual) Seg Neutrophils # Seg Neutrophils # Man Lymphocytes # (Manual) Monocytes # (Manual) Eosinophils # (Manual) Basophils # (Manual) PT INR APTT ABG pH ABG pO2 ABG HCO3 ABG O2 Saturation ABG Base Excess ABG Hemoglobin Oxyhemoglobin Sodium Potassium 2.8 L* Chloride Carbon Dioxide BUN 20 H Creatinine 0.5 L Glucose 121 H POC Glucose 128 H 120 H Lactic Acid Calcium Ionized Calcium Phosphorus Magnesium Total Bilirubin AST ALT Alkaline Phosphatase Ammonia Total Creatine Kinase CK-MB (CK-2) CK-MB (CK-2) Rel Index Total Protein Albumin Urine WBC (Auto) Vancomycin Trough Salicylates Acetaminophen Plasma/Serum Alcohol Crossmatch 11/29/19 11/30/19 11/30/19 23:46 04:10 05:02 WBC RBC Hgb Hct MCH RDW Plt Count Lymph % (Auto) Swain % (Auto) Swain # Baso # Seg Neutrophils % Seg Neuts % (Manual) Lymphocytes % (Manual) Monocytes % (Manual) Seg Neutrophils # Seg Neutrophils # Man Lymphocytes # (Manual) Monocytes # (Manual) Eosinophils # (Manual) Basophils # (Manual) PT INR APTT ABG pH ABG pO2 76.3 L ABG HCO3 32.5 H ABG O2 Saturation ABG Base Excess 6.9 H ABG Hemoglobin 8.0 L Oxyhemoglobin 92.6 L Sodium Potassium Chloride Carbon Dioxide BUN Creatinine Glucose POC Glucose 116 H 128 H Lactic Acid Calcium Ionized Calcium Phosphorus Magnesium Total Bilirubin AST ALT Alkaline Phosphatase Ammonia Total Creatine Kinase CK-MB (CK-2) CK-MB (CK-2) Rel Index Total Protein Albumin Urine WBC (Auto) Vancomycin Trough Salicylates Acetaminophen Plasma/Serum Alcohol Crossmatch 11/30/19 11/30/19 11/30/19 05:25 05:25 12:59 WBC 18.4 H RBC 3.10 L Hgb 8.5 L Hct 27.5 L MCH 27 L RDW 20.9 H Plt Count 691 H Lymph % (Auto) 7.1 L Swain % (Auto) 7.7 H Swain # 1.4 H Baso # Seg Neutrophils % 83.4 H Seg Neuts % (Manual) Lymphocytes % (Manual) Monocytes % (Manual) Seg Neutrophils # 15.4 H Seg Neutrophils # Man Lymphocytes # (Manual) Monocytes # (Manual) Eosinophils # (Manual) Basophils # (Manual) PT INR APTT ABG pH ABG pO2 ABG HCO3 ABG O2 Saturation ABG Base Excess ABG Hemoglobin Oxyhemoglobin Sodium 146 H Potassium Chloride 107.2 H Carbon Dioxide BUN Creatinine 0.5 L Glucose 132 H POC Glucose 124 H Lactic Acid Calcium Ionized Calcium Phosphorus Magnesium Total Bilirubin AST 246 H ALT 274 H Alkaline Phosphatase 203 H Ammonia Total Creatine Kinase CK-MB (CK-2) CK-MB (CK-2) Rel Index Total Protein 5.4 L Albumin 2.9 L Urine WBC (Auto) Vancomycin Trough Salicylates Acetaminophen Plasma/Serum Alcohol Crossmatch 11/30/19 12/01/19 12/01/19 17:53 00:05 05:10 WBC RBC Hgb Hct MCH RDW Plt Count Lymph % (Auto) Swain % (Auto) Swain # Baso # Seg Neutrophils % Seg Neuts % (Manual) Lymphocytes % (Manual) Monocytes % (Manual) Seg Neutrophils # Seg Neutrophils # Man Lymphocytes # (Manual) Monocytes # (Manual) Eosinophils # (Manual) Basophils # (Manual) PT INR APTT ABG pH ABG pO2 ABG HCO3 ABG O2 Saturation ABG Base Excess ABG Hemoglobin Oxyhemoglobin Sodium Potassium Chloride Carbon Dioxide BUN Creatinine Glucose POC Glucose 113 H 143 H 145 H Lactic Acid Calcium Ionized Calcium Phosphorus Magnesium Total Bilirubin AST ALT Alkaline Phosphatase Ammonia Total Creatine Kinase CK-MB (CK-2) CK-MB (CK-2) Rel Index Total Protein Albumin Urine WBC (Auto) Vancomycin Trough Salicylates Acetaminophen Plasma/Serum Alcohol Crossmatch 12/01/19 12/01/19 12/01/19 05:33 08:23 08:23 WBC 22.7 H RBC 2.88 L Hgb 7.9 L Hct 25.2 L MCH 27 L RDW 21.0 H Plt Count 732 H Lymph % (Auto) Swain % (Auto) Swain # Baso # Seg Neutrophils % Seg Neuts % (Manual) 91.0 H Lymphocytes % (Manual) 3.0 L Monocytes % (Manual) Seg Neutrophils # Seg Neutrophils # Man 20.7 H Lymphocytes # (Manual) 0.7 L Monocytes # (Manual) 1.1 H Eosinophils # (Manual) Basophils # (Manual) PT INR APTT ABG pH ABG pO2 68.6 L ABG HCO3 34.1 H ABG O2 Saturation ABG Base Excess 9.0 H ABG Hemoglobin 6.5 L Oxyhemoglobin 94.7 L Sodium Potassium Chloride Carbon Dioxide BUN Creatinine 0.5 L Glucose 125 H POC Glucose Lactic Acid Calcium Ionized Calcium Phosphorus Magnesium Total Bilirubin AST ALT Alkaline Phosphatase Ammonia Total Creatine Kinase CK-MB (CK-2) CK-MB (CK-2) Rel Index Total Protein Albumin Urine WBC (Auto) Vancomycin Trough Salicylates Acetaminophen Plasma/Serum Alcohol Crossmatch 12/01/19 12/01/19 12/01/19 13:21 17:54 20:59 WBC RBC Hgb Hct MCH RDW Plt Count Lymph % (Auto) Swain % (Auto) Swain # Baso # Seg Neutrophils % Seg Neuts % (Manual) Lymphocytes % (Manual) Monocytes % (Manual) Seg Neutrophils # Seg Neutrophils # Man Lymphocytes # (Manual) Monocytes # (Manual) Eosinophils # (Manual) Basophils # (Manual) PT INR APTT ABG pH ABG pO2 78.3 L ABG HCO3 33.8 H ABG O2 Saturation 94.9 L ABG Base Excess 7.9 H ABG Hemoglobin 11.5 L Oxyhemoglobin 92.3 L Sodium Potassium Chloride Carbon Dioxide BUN Creatinine Glucose POC Glucose 111 H 115 H Lactic Acid Calcium Ionized Calcium Phosphorus Magnesium Total Bilirubin AST ALT Alkaline Phosphatase Ammonia Total Creatine Kinase CK-MB (CK-2) CK-MB (CK-2) Rel Index Total Protein Albumin Urine WBC (Auto) Vancomycin Trough Salicylates Acetaminophen Plasma/Serum Alcohol Crossmatch 12/02/19 12/03/19 12/04/19 12:55 20:00 04:26 WBC 15.2 H RBC 2.69 L Hgb 7.4 L Hct 23.6 L MCH 27 L RDW 19.9 H Plt Count 838 H Lymph % (Auto) Swain % (Auto) Swain # Baso # Seg Neutrophils % Seg Neuts % (Manual) Lymphocytes % (Manual) Monocytes % (Manual) Seg Neutrophils # Seg Neutrophils # Man Lymphocytes # (Manual) Monocytes # (Manual) Eosinophils # (Manual) Basophils # (Manual) PT INR APTT ABG pH ABG pO2 68.3 L ABG HCO3 33.5 H ABG O2 Saturation 93.5 L ABG Base Excess 8.4 H ABG Hemoglobin 7.3 L Oxyhemoglobin 90.9 L Sodium Potassium Chloride Carbon Dioxide BUN Creatinine Glucose POC Glucose 107 H Lactic Acid Calcium Ionized Calcium Phosphorus Magnesium Total Bilirubin AST ALT Alkaline Phosphatase Ammonia Total Creatine Kinase CK-MB (CK-2) CK-MB (CK-2) Rel Index Total Protein Albumin Urine WBC (Auto) Vancomycin Trough Salicylates Acetaminophen Plasma/Serum Alcohol Crossmatch 12/04/19 12/04/19 12/04/19 04:26 07:45 12:02 WBC 15.9 H RBC 2.88 L Hgb 7.9 L Hct 25.1 L MCH RDW 20.4 H Plt Count 839 H Lymph % (Auto) 11.3 L Swain % (Auto) 15.2 H Swain # 2.4 H Baso # Seg Neutrophils % 72.4 H Seg Neuts % (Manual) Lymphocytes % (Manual) Monocytes % (Manual) Seg Neutrophils # 11.5 H Seg Neutrophils # Man Lymphocytes # (Manual) Monocytes # (Manual) Eosinophils # (Manual) Basophils # (Manual) PT INR APTT ABG pH ABG pO2 ABG HCO3 ABG O2 Saturation ABG Base Excess ABG Hemoglobin Oxyhemoglobin Sodium Potassium Chloride 96.5 L Carbon Dioxide BUN 21 H Creatinine 0.6 L Glucose 107 H POC Glucose 138 H Lactic Acid Calcium Ionized Calcium Phosphorus Magnesium Total Bilirubin AST ALT Alkaline Phosphatase Ammonia Total Creatine Kinase CK-MB (CK-2) CK-MB (CK-2) Rel Index Total Protein Albumin Urine WBC (Auto) Vancomycin Trough Salicylates Acetaminophen Plasma/Serum Alcohol Crossmatch 12/04/19 12/05/19 12/05/19 18:16 11:55 18:36 WBC RBC Hgb Hct MCH RDW Plt Count Lymph % (Auto) Swain % (Auto) Swain # Baso # Seg Neutrophils % Seg Neuts % (Manual) Lymphocytes % (Manual) Monocytes % (Manual) Seg Neutrophils # Seg Neutrophils # Man Lymphocytes # (Manual) Monocytes # (Manual) Eosinophils # (Manual) Basophils # (Manual) PT INR APTT ABG pH ABG pO2 ABG HCO3 ABG O2 Saturation ABG Base Excess ABG Hemoglobin Oxyhemoglobin Sodium Potassium Chloride Carbon Dioxide BUN Creatinine Glucose POC Glucose 135 H 125 H 135 H Lactic Acid Calcium Ionized Calcium Phosphorus Magnesium Total Bilirubin AST ALT Alkaline Phosphatase Ammonia Total Creatine Kinase CK-MB (CK-2) CK-MB (CK-2) Rel Index Total Protein Albumin Urine WBC (Auto) Vancomycin Trough Salicylates Acetaminophen Plasma/Serum Alcohol Crossmatch 12/05/19 12/06/19 12/06/19 23:30 04:14 05:43 WBC RBC Hgb Hct MCH RDW Plt Count Lymph % (Auto) Swain % (Auto) Swain # Baso # Seg Neutrophils % Seg Neuts % (Manual) Lymphocytes % (Manual) Monocytes % (Manual) Seg Neutrophils # Seg Neutrophils # Man Lymphocytes # (Manual) Monocytes # (Manual) Eosinophils # (Manual) Basophils # (Manual) PT INR APTT ABG pH ABG pO2 ABG HCO3 ABG O2 Saturation ABG Base Excess ABG Hemoglobin Oxyhemoglobin Sodium Potassium 5.6 H Chloride 95.0 L Carbon Dioxide BUN 48 H Creatinine 1.3 H D Glucose POC Glucose 126 H 121 H Lactic Acid Calcium Ionized Calcium Phosphorus Magnesium Total Bilirubin AST 89 H ALT 98 H Alkaline Phosphatase 476 H Ammonia Total Creatine Kinase CK-MB (CK-2) CK-MB (CK-2) Rel Index Total Protein Albumin 2.8 L Urine WBC (Auto) Vancomycin Trough Salicylates Acetaminophen Plasma/Serum Alcohol Crossmatch 0312/06/19 12/07/19 10:39 14:34 00:19 WBC 17.3 H RBC 2.60 L Hgb 7.1 L Hct 22.7 L MCH 27 L RDW 20.1 H Plt Count 832 H Lymph % (Auto) Swain % (Auto) Swain # Baso # Seg Neutrophils % Seg Neuts % (Manual) Lymphocytes % (Manual) Monocytes % (Manual) Seg Neutrophils # Seg Neutrophils # Man Lymphocytes # (Manual) Monocytes # (Manual) Eosinophils # (Manual) Basophils # (Manual) PT INR APTT ABG pH ABG pO2 ABG HCO3 ABG O2 Saturation ABG Base Excess ABG Hemoglobin Oxyhemoglobin Sodium Potassium Chloride Carbon Dioxide BUN Creatinine Glucose POC Glucose 128 H 136 H Lactic Acid Calcium Ionized Calcium Phosphorus Magnesium Total Bilirubin AST ALT Alkaline Phosphatase Ammonia Total Creatine Kinase CK-MB (CK-2) CK-MB (CK-2) Rel Index Total Protein Albumin Urine WBC (Auto) Vancomycin Trough Salicylates Acetaminophen Plasma/Serum Alcohol Crossmatch 12/07/19 12/07/19 12/07/19 03:44 03:44 05:53 WBC 16.2 H RBC 2.56 L Hgb 7.1 L Hct 22.3 L MCH RDW 19.4 H Plt Count 782 H Lymph % (Auto) Swain % (Auto) Swain # Baso # Seg Neutrophils % Seg Neuts % (Manual) Lymphocytes % (Manual) Monocytes % (Manual) Seg Neutrophils # Seg Neutrophils # Man Lymphocytes # (Manual) Monocytes # (Manual) Eosinophils # (Manual) Basophils # (Manual) PT INR APTT ABG pH ABG pO2 ABG HCO3 ABG O2 Saturation ABG Base Excess ABG Hemoglobin Oxyhemoglobin Sodium Potassium Chloride 95.6 L Carbon Dioxide BUN 56 H Creatinine 1.4 H Glucose 120 H POC Glucose 128 H Lactic Acid Calcium 10.3 H Ionized Calcium Phosphorus Magnesium Total Bilirubin AST ALT Alkaline Phosphatase Ammonia Total Creatine Kinase CK-MB (CK-2) CK-MB (CK-2) Rel Index Total Protein Albumin Urine WBC (Auto) Vancomycin Trough Salicylates Acetaminophen Plasma/Serum Alcohol Crossmatch 12/07/19 12/07/19 12/08/19 12:54 23:47 00:20 WBC RBC Hgb Hct MCH RDW Plt Count Lymph % (Auto) Swain % (Auto) Swain # Baso # Seg Neutrophils % Seg Neuts % (Manual) Lymphocytes % (Manual) Monocytes % (Manual) Seg Neutrophils # Seg Neutrophils # Man Lymphocytes # (Manual) Monocytes # (Manual) Eosinophils # (Manual) Basophils # (Manual) PT INR APTT ABG pH ABG pO2 ABG HCO3 ABG O2 Saturation ABG Base Excess ABG Hemoglobin Oxyhemoglobin Sodium Potassium Chloride Carbon Dioxide BUN Creatinine Glucose POC Glucose 128 H 130 H 124 H Lactic Acid Calcium Ionized Calcium Phosphorus Magnesium Total Bilirubin AST ALT Alkaline Phosphatase Ammonia Total Creatine Kinase CK-MB (CK-2) CK-MB (CK-2) Rel Index Total Protein Albumin Urine WBC (Auto) Vancomycin Trough Salicylates Acetaminophen Plasma/Serum Alcohol Crossmatch 12/08/19 12/08/19 12/08/19 06:38 12:04 18:26 WBC RBC Hgb Hct MCH RDW Plt Count Lymph % (Auto) Swain % (Auto) Swain # Baso # Seg Neutrophils % Seg Neuts % (Manual) Lymphocytes % (Manual) Monocytes % (Manual) Seg Neutrophils # Seg Neutrophils # Man Lymphocytes # (Manual) Monocytes # (Manual) Eosinophils # (Manual) Basophils # (Manual) PT INR APTT ABG pH ABG pO2 ABG HCO3 ABG O2 Saturation ABG Base Excess ABG Hemoglobin Oxyhemoglobin Sodium Potassium Chloride Carbon Dioxide BUN Creatinine Glucose POC Glucose 137 H 129 H 150 H Lactic Acid Calcium Ionized Calcium Phosphorus Magnesium Total Bilirubin AST ALT Alkaline Phosphatase Ammonia Total Creatine Kinase CK-MB (CK-2) CK-MB (CK-2) Rel Index Total Protein Albumin Urine WBC (Auto) Vancomycin Trough Salicylates Acetaminophen Plasma/Serum Alcohol Crossmatch 12/09/19 12/09/19 12/09/19 00:56 05:34 06:13 WBC RBC Hgb Hct MCH RDW Plt Count Lymph % (Auto) Swain % (Auto) Swain # Baso # Seg Neutrophils % Seg Neuts % (Manual) Lymphocytes % (Manual) Monocytes % (Manual) Seg Neutrophils # Seg Neutrophils # Man Lymphocytes # (Manual) Monocytes # (Manual) Eosinophils # (Manual) Basophils # (Manual) PT INR APTT ABG pH ABG pO2 ABG HCO3 ABG O2 Saturation ABG Base Excess ABG Hemoglobin Oxyhemoglobin Sodium 146 H Potassium Chloride Carbon Dioxide BUN 66 H Creatinine 1.9 H Glucose 116 H POC Glucose 130 H 130 H Lactic Acid Calcium Ionized Calcium Phosphorus Magnesium Total Bilirubin AST ALT Alkaline Phosphatase Ammonia Total Creatine Kinase CK-MB (CK-2) CK-MB (CK-2) Rel Index Total Protein Albumin Urine WBC (Auto) Vancomycin Trough Salicylates Acetaminophen Plasma/Serum Alcohol Crossmatch 12/09/19 12/09/19 12/10/19 11:52 17:50 00:14 WBC RBC Hgb Hct MCH RDW Plt Count Lymph % (Auto) Swain % (Auto) Swain # Baso # Seg Neutrophils % Seg Neuts % (Manual) Lymphocytes % (Manual) Monocytes % (Manual) Seg Neutrophils # Seg Neutrophils # Man Lymphocytes # (Manual) Monocytes # (Manual) Eosinophils # (Manual) Basophils # (Manual) PT INR APTT ABG pH ABG pO2 ABG HCO3 ABG O2 Saturation ABG Base Excess ABG Hemoglobin Oxyhemoglobin Sodium Potassium Chloride Carbon Dioxide BUN Creatinine Glucose POC Glucose 135 H 120 H 116 H Lactic Acid Calcium Ionized Calcium Phosphorus Magnesium Total Bilirubin AST ALT Alkaline Phosphatase Ammonia Total Creatine Kinase CK-MB (CK-2) CK-MB (CK-2) Rel Index Total Protein Albumin Urine WBC (Auto) Vancomycin Trough Salicylates Acetaminophen Plasma/Serum Alcohol Crossmatch 12/10/19 12/10/19 12/10/19 05:38 11:38 17:34 WBC RBC Hgb Hct MCH RDW Plt Count Lymph % (Auto) Swain % (Auto) Swain # Baso # Seg Neutrophils % Seg Neuts % (Manual) Lymphocytes % (Manual) Monocytes % (Manual) Seg Neutrophils # Seg Neutrophils # Man Lymphocytes # (Manual) Monocytes # (Manual) Eosinophils # (Manual) Basophils # (Manual) PT INR APTT ABG pH ABG pO2 ABG HCO3 ABG O2 Saturation ABG Base Excess ABG Hemoglobin Oxyhemoglobin Sodium Potassium Chloride Carbon Dioxide BUN Creatinine Glucose POC Glucose 115 H 112 H 130 H Lactic Acid Calcium Ionized Calcium Phosphorus Magnesium Total Bilirubin AST ALT Alkaline Phosphatase Ammonia Total Creatine Kinase CK-MB (CK-2) CK-MB (CK-2) Rel Index Total Protein Albumin Urine WBC (Auto) Vancomycin Trough Salicylates Acetaminophen Plasma/Serum Alcohol Crossmatch 12/11/19 12/11/19 12/11/19 00:20 05:31 12:22 WBC RBC Hgb Hct MCH RDW Plt Count Lymph % (Auto) Swain % (Auto) Swain # Baso # Seg Neutrophils % Seg Neuts % (Manual) Lymphocytes % (Manual) Monocytes % (Manual) Seg Neutrophils # Seg Neutrophils # Man Lymphocytes # (Manual) Monocytes # (Manual) Eosinophils # (Manual) Basophils # (Manual) PT INR APTT ABG pH ABG pO2 ABG HCO3 ABG O2 Saturation ABG Base Excess ABG Hemoglobin Oxyhemoglobin Sodium Potassium Chloride Carbon Dioxide BUN Creatinine Glucose POC Glucose 124 H 132 H 128 H Lactic Acid Calcium Ionized Calcium Phosphorus Magnesium Total Bilirubin AST ALT Alkaline Phosphatase Ammonia Total Creatine Kinase CK-MB (CK-2) CK-MB (CK-2) Rel Index Total Protein Albumin Urine WBC (Auto) Vancomycin Trough Salicylates Acetaminophen Plasma/Serum Alcohol Crossmatch 12/11/19 12/11/19 12/12/19 18:04 23:42 03:51 WBC RBC Hgb Hct MCH RDW Plt Count Lymph % (Auto) Swain % (Auto) Swain # Baso # Seg Neutrophils % Seg Neuts % (Manual) Lymphocytes % (Manual) Monocytes % (Manual) Seg Neutrophils # Seg Neutrophils # Man Lymphocytes # (Manual) Monocytes # (Manual) Eosinophils # (Manual) Basophils # (Manual) PT INR APTT ABG pH ABG pO2 ABG HCO3 ABG O2 Saturation ABG Base Excess ABG Hemoglobin Oxyhemoglobin Sodium 149 H Potassium Chloride Carbon Dioxide 20 L D BUN 77 H Creatinine 2.8 H Glucose POC Glucose 133 H 154 H Lactic Acid Calcium Ionized Calcium Phosphorus Magnesium Total Bilirubin AST ALT Alkaline Phosphatase Ammonia Total Creatine Kinase CK-MB (CK-2) CK-MB (CK-2) Rel Index Total Protein Albumin Urine WBC (Auto) Vancomycin Trough Salicylates Acetaminophen Plasma/Serum Alcohol Crossmatch 12/12/19 12/12/19 12/12/19 05:18 05:26 10:30 WBC 18.0 H RBC 2.51 L Hgb 6.8 L Hct 22.0 L MCH 27 L RDW 19.9 H Plt Count 582 H Lymph % (Auto) Swain % (Auto) Swain # Baso # Seg Neutrophils % Seg Neuts % (Manual) Lymphocytes % (Manual) Monocytes % (Manual) Seg Neutrophils # Seg Neutrophils # Man Lymphocytes # (Manual) Monocytes # (Manual) Eosinophils # (Manual) Basophils # (Manual) PT INR APTT ABG pH ABG pO2 ABG HCO3 ABG O2 Saturation ABG Base Excess ABG Hemoglobin Oxyhemoglobin Sodium Potassium Chloride Carbon Dioxide BUN Creatinine Glucose POC Glucose 135 H Lactic Acid Calcium Ionized Calcium Phosphorus Magnesium Total Bilirubin AST ALT Alkaline Phosphatase Ammonia Total Creatine Kinase CK-MB (CK-2) CK-MB (CK-2) Rel Index Total Protein Albumin Urine WBC (Auto) Vancomycin Trough Salicylates Acetaminophen Plasma/Serum Alcohol Crossmatch See Detail 12/12/19 12/12/19 12/12/19 11:44 18:10 23:21 WBC RBC Hgb Hct MCH RDW Plt Count Lymph % (Auto) Swain % (Auto) Swain # Baso # Seg Neutrophils % Seg Neuts % (Manual) Lymphocytes % (Manual) Monocytes % (Manual) Seg Neutrophils # Seg Neutrophils # Man Lymphocytes # (Manual) Monocytes # (Manual) Eosinophils # (Manual) Basophils # (Manual) PT INR APTT ABG pH ABG pO2 ABG HCO3 ABG O2 Saturation ABG Base Excess ABG Hemoglobin Oxyhemoglobin Sodium Potassium Chloride Carbon Dioxide BUN Creatinine Glucose POC Glucose 108 H 107 H 126 H Lactic Acid Calcium Ionized Calcium Phosphorus Magnesium Total Bilirubin AST ALT Alkaline Phosphatase Ammonia Total Creatine Kinase CK-MB (CK-2) CK-MB (CK-2) Rel Index Total Protein Albumin Urine WBC (Auto) Vancomycin Trough Salicylates Acetaminophen Plasma/Serum Alcohol Crossmatch 12/13/19 12/13/19 12/13/19 05:41 07:48 07:48 WBC 38.3 H RBC 2.37 L Hgb 6.3 L Hct 20.9 L MCH 27 L RDW 20.2 H Plt Count 546 H Lymph % (Auto) Swain % (Auto) Swain # Baso # Seg Neutrophils % Seg Neuts % (Manual) 93.0 H Lymphocytes % (Manual) 1.0 L Monocytes % (Manual) Seg Neutrophils # Seg Neutrophils # Man 35.6 H Lymphocytes # (Manual) 0.4 L Monocytes # (Manual) Eosinophils # (Manual) Basophils # (Manual) 0.4 H PT INR APTT ABG pH ABG pO2 ABG HCO3 ABG O2 Saturation ABG Base Excess ABG Hemoglobin Oxyhemoglobin Sodium 152 H Potassium 3.1 L D Chloride 111.9 H Carbon Dioxide 21 L BUN 53 H Creatinine 1.9 H Glucose 141 H POC Glucose 128 H Lactic Acid Calcium Ionized Calcium Phosphorus Magnesium Total Bilirubin AST ALT Alkaline Phosphatase 316 H Ammonia Total Creatine Kinase CK-MB (CK-2) CK-MB (CK-2) Rel Index Total Protein Albumin 2.4 L Urine WBC (Auto) Vancomycin Trough Salicylates Acetaminophen Plasma/Serum Alcohol Crossmatch 12/13/19 12/13/19 12/14/19 18:17 23:19 05:36 WBC RBC Hgb Hct MCH RDW Plt Count Lymph % (Auto) Swain % (Auto) Swain # Baso # Seg Neutrophils % Seg Neuts % (Manual) Lymphocytes % (Manual) Monocytes % (Manual) Seg Neutrophils # Seg Neutrophils # Man Lymphocytes # (Manual) Monocytes # (Manual) Eosinophils # (Manual) Basophils # (Manual) PT INR APTT ABG pH ABG pO2 ABG HCO3 ABG O2 Saturation ABG Base Excess ABG Hemoglobin Oxyhemoglobin Sodium Potassium Chloride Carbon Dioxide BUN Creatinine Glucose POC Glucose 141 H 158 H 182 H Lactic Acid Calcium Ionized Calcium Phosphorus Magnesium Total Bilirubin AST ALT Alkaline Phosphatase Ammonia Total Creatine Kinase CK-MB (CK-2) CK-MB (CK-2) Rel Index Total Protein Albumin Urine WBC (Auto) Vancomycin Trough Salicylates Acetaminophen Plasma/Serum Alcohol Crossmatch 12/14/19 12/14/19 12/14/19 08:48 08:48 10:31 WBC 33.3 H RBC 2.70 L Hgb 7.9 L 8.0 L Hct 25.3 L 24.0 L MCH RDW 19.2 H Plt Count 476 H Lymph % (Auto) Swain % (Auto) Swain # Baso # Seg Neutrophils % Seg Neuts % (Manual) Lymphocytes % (Manual) Monocytes % (Manual) Seg Neutrophils # Seg Neutrophils # Man Lymphocytes # (Manual) Monocytes # (Manual) Eosinophils # (Manual) Basophils # (Manual) PT INR APTT ABG pH ABG pO2 ABG HCO3 ABG O2 Saturation ABG Base Excess ABG Hemoglobin Oxyhemoglobin Sodium 153 H Potassium 2.5 L* Chloride 114.9 H Carbon Dioxide 20 L BUN 38 H Creatinine 1.4 H Glucose 177 H POC Glucose Lactic Acid Calcium Ionized Calcium Phosphorus Magnesium Total Bilirubin AST ALT Alkaline Phosphatase Ammonia Total Creatine Kinase CK-MB (CK-2) CK-MB (CK-2) Rel Index Total Protein Albumin Urine WBC (Auto) Vancomycin Trough Salicylates Acetaminophen Plasma/Serum Alcohol Crossmatch 12/14/19 12/14/19 12/14/19 12:57 16:15 17:50 WBC RBC Hgb Hct MCH RDW Plt Count Lymph % (Auto) Swain % (Auto) Swain # Baso # Seg Neutrophils % Seg Neuts % (Manual) Lymphocytes % (Manual) Monocytes % (Manual) Seg Neutrophils # Seg Neutrophils # Man Lymphocytes # (Manual) Monocytes # (Manual) Eosinophils # (Manual) Basophils # (Manual) PT INR APTT ABG pH ABG pO2 73.6 L ABG HCO3 ABG O2 Saturation ABG Base Excess ABG Hemoglobin 7.6 L Oxyhemoglobin 94.0 L Sodium Potassium Chloride Carbon Dioxide BUN Creatinine Glucose POC Glucose 174 H 150 H Lactic Acid Calcium Ionized Calcium Phosphorus Magnesium Total Bilirubin AST ALT Alkaline Phosphatase Ammonia Total Creatine Kinase CK-MB (CK-2) CK-MB (CK-2) Rel Index Total Protein Albumin Urine WBC (Auto) Vancomycin Trough Salicylates Acetaminophen Plasma/Serum Alcohol Crossmatch 12/15/19 12/15/19 12/15/19 00:28 05:27 07:23 WBC 30.0 H RBC 3.11 L Hgb 8.6 L Hct 27.7 L MCH RDW 20.0 H Plt Count 473 H Lymph % (Auto) Swain % (Auto) Swain # Baso # Seg Neutrophils % Seg Neuts % (Manual) Lymphocytes % (Manual) Monocytes % (Manual) Seg Neutrophils # Seg Neutrophils # Man Lymphocytes # (Manual) Monocytes # (Manual) Eosinophils # (Manual) Basophils # (Manual) PT INR APTT ABG pH ABG pO2 ABG HCO3 ABG O2 Saturation ABG Base Excess ABG Hemoglobin Oxyhemoglobin Sodium Potassium Chloride Carbon Dioxide BUN Creatinine Glucose POC Glucose 167 H 148 H Lactic Acid Calcium Ionized Calcium Phosphorus Magnesium Total Bilirubin AST ALT Alkaline Phosphatase Ammonia Total Creatine Kinase CK-MB (CK-2) CK-MB (CK-2) Rel Index Total Protein Albumin Urine WBC (Auto) Vancomycin Trough Salicylates Acetaminophen Plasma/Serum Alcohol Crossmatch 12/15/19 12/15/19 12/15/19 07:23 12:21 17:41 WBC RBC Hgb Hct MCH RDW Plt Count Lymph % (Auto) Swain % (Auto) Swain # Baso # Seg Neutrophils % Seg Neuts % (Manual) Lymphocytes % (Manual) Monocytes % (Manual) Seg Neutrophils # Seg Neutrophils # Man Lymphocytes # (Manual) Monocytes # (Manual) Eosinophils # (Manual) Basophils # (Manual) PT INR APTT ABG pH ABG pO2 ABG HCO3 ABG O2 Saturation ABG Base Excess ABG Hemoglobin Oxyhemoglobin Sodium 147 H Potassium 3.5 L D Chloride 111.2 H Carbon Dioxide 19 L BUN 29 H Creatinine Glucose 126 H POC Glucose 154 H 144 H Lactic Acid Calcium Ionized Calcium Phosphorus Magnesium Total Bilirubin AST ALT Alkaline Phosphatase Ammonia Total Creatine Kinase CK-MB (CK-2) CK-MB (CK-2) Rel Index Total Protein Albumin Urine WBC (Auto) Vancomycin Trough Salicylates Acetaminophen Plasma/Serum Alcohol Crossmatch 12/16/19 12/16/19 12/16/19 00:22 05:30 05:44 WBC 30.8 H RBC 2.58 L Hgb 7.1 L Hct 22.7 L MCH RDW 19.6 H Plt Count 451 H Lymph % (Auto) Swain % (Auto) Swain # Baso # Seg Neutrophils % Seg Neuts % (Manual) Lymphocytes % (Manual) Monocytes % (Manual) Seg Neutrophils # Seg Neutrophils # Man Lymphocytes # (Manual) Monocytes # (Manual) Eosinophils # (Manual) Basophils # (Manual) PT INR APTT ABG pH ABG pO2 ABG HCO3 ABG O2 Saturation ABG Base Excess ABG Hemoglobin Oxyhemoglobin Sodium Potassium Chloride Carbon Dioxide BUN Creatinine Glucose POC Glucose 139 H 126 H Lactic Acid Calcium Ionized Calcium Phosphorus Magnesium Total Bilirubin AST ALT Alkaline Phosphatase Ammonia Total Creatine Kinase CK-MB (CK-2) CK-MB (CK-2) Rel Index Total Protein Albumin Urine WBC (Auto) Vancomycin Trough Salicylates Acetaminophen Plasma/Serum Alcohol Crossmatch 12/16/19 12/16/19 12/16/19 05:44 11:48 17:37 WBC RBC Hgb Hct MCH RDW Plt Count Lymph % (Auto) Swain % (Auto) Swain # Baso # Seg Neutrophils % Seg Neuts % (Manual) Lymphocytes % (Manual) Monocytes % (Manual) Seg Neutrophils # Seg Neutrophils # Man Lymphocytes # (Manual) Monocytes # (Manual) Eosinophils # (Manual) Basophils # (Manual) PT INR APTT ABG pH ABG pO2 ABG HCO3 ABG O2 Saturation ABG Base Excess ABG Hemoglobin Oxyhemoglobin Sodium Potassium 3.4 L Chloride 109.2 H Carbon Dioxide 19 L BUN 27 H Creatinine Glucose 124 H POC Glucose 125 H 148 H Lactic Acid Calcium Ionized Calcium Phosphorus Magnesium Total Bilirubin AST ALT Alkaline Phosphatase Ammonia Total Creatine Kinase CK-MB (CK-2) CK-MB (CK-2) Rel Index Total Protein Albumin Urine WBC (Auto) Vancomycin Trough Salicylates Acetaminophen Plasma/Serum Alcohol Crossmatch 12/16/19 12/17/19 12/17/19 23:43 05:28 12:47 WBC RBC Hgb Hct MCH RDW Plt Count Lymph % (Auto) Swain % (Auto) Swain # Baso # Seg Neutrophils % Seg Neuts % (Manual) Lymphocytes % (Manual) Monocytes % (Manual) Seg Neutrophils # Seg Neutrophils # Man Lymphocytes # (Manual) Monocytes # (Manual) Eosinophils # (Manual) Basophils # (Manual) PT INR APTT ABG pH ABG pO2 ABG HCO3 ABG O2 Saturation ABG Base Excess ABG Hemoglobin Oxyhemoglobin Sodium Potassium Chloride Carbon Dioxide BUN Creatinine Glucose POC Glucose 142 H 140 H 125 H Lactic Acid Calcium Ionized Calcium Phosphorus Magnesium Total Bilirubin AST ALT Alkaline Phosphatase Ammonia Total Creatine Kinase CK-MB (CK-2) CK-MB (CK-2) Rel Index Total Protein Albumin Urine WBC (Auto) Vancomycin Trough Salicylates Acetaminophen Plasma/Serum Alcohol Crossmatch 12/17/19 12/17/19 12/17/19 17:05 18:00 Unknown WBC RBC Hgb Hct MCH RDW Plt Count Lymph % (Auto) Swain % (Auto) Swain # Baso # Seg Neutrophils % Seg Neuts % (Manual) Lymphocytes % (Manual) Monocytes % (Manual) Seg Neutrophils # Seg Neutrophils # Man Lymphocytes # (Manual) Monocytes # (Manual) Eosinophils # (Manual) Basophils # (Manual) PT INR APTT ABG pH ABG pO2 68.1 L ABG HCO3 ABG O2 Saturation 93.7 L ABG Base Excess ABG Hemoglobin 5.0 L Oxyhemoglobin 91.7 L Sodium Potassium Chloride Carbon Dioxide BUN Creatinine Glucose POC Glucose 140 H Lactic Acid Calcium Ionized Calcium Phosphorus Magnesium Total Bilirubin AST ALT Alkaline Phosphatase Ammonia Total Creatine Kinase CK-MB (CK-2) CK-MB (CK-2) Rel Index Total Protein Albumin Urine WBC (Auto) Vancomycin Trough Salicylates Acetaminophen Plasma/Serum Alcohol Crossmatch 12/18/19 12/18/19 12/18/19 00:16 04:53 04:53 WBC 28.6 H RBC 2.27 L Hgb 6.3 L Hct 19.5 L* MCH RDW 20.0 H Plt Count 497 H Lymph % (Auto) Swain % (Auto) Swain # Baso # Seg Neutrophils % Seg Neuts % (Manual) Lymphocytes % (Manual) Monocytes % (Manual) Seg Neutrophils # Seg Neutrophils # Man Lymphocytes # (Manual) Monocytes # (Manual) Eosinophils # (Manual) Basophils # (Manual) PT INR APTT ABG pH ABG pO2 ABG HCO3 ABG O2 Saturation ABG Base Excess ABG Hemoglobin Oxyhemoglobin Sodium Potassium Chloride 107.9 H Carbon Dioxide 20 L BUN 27 H Creatinine 0.6 L Glucose 116 H POC Glucose 123 H Lactic Acid Calcium Ionized Calcium Phosphorus Magnesium Total Bilirubin AST ALT Alkaline Phosphatase Ammonia Total Creatine Kinase CK-MB (CK-2) CK-MB (CK-2) Rel Index Total Protein Albumin Urine WBC (Auto) Vancomycin Trough Salicylates Acetaminophen Plasma/Serum Alcohol Crossmatch 12/18/19 12/18/19 12/18/19 06:38 11:22 12:08 WBC RBC Hgb Hct MCH RDW Plt Count Lymph % (Auto) Swain % (Auto) Swain # Baso # Seg Neutrophils % Seg Neuts % (Manual) Lymphocytes % (Manual) Monocytes % (Manual) Seg Neutrophils # Seg Neutrophils # Man Lymphocytes # (Manual) Monocytes # (Manual) Eosinophils # (Manual) Basophils # (Manual) PT INR APTT ABG pH ABG pO2 ABG HCO3 ABG O2 Saturation ABG Base Excess ABG Hemoglobin Oxyhemoglobin Sodium Potassium Chloride Carbon Dioxide BUN Creatinine Glucose POC Glucose 120 H 127 H Lactic Acid Calcium Ionized Calcium Phosphorus Magnesium Total Bilirubin AST ALT Alkaline Phosphatase Ammonia Total Creatine Kinase CK-MB (CK-2) CK-MB (CK-2) Rel Index Total Protein Albumin Urine WBC (Auto) Vancomycin Trough Salicylates Acetaminophen Plasma/Serum Alcohol Crossmatch See Detail 12/18/19 12/18/19 12/18/19 14:05 17:49 23:53 WBC RBC Hgb Hct MCH RDW Plt Count Lymph % (Auto) Swain % (Auto) Swain # Baso # Seg Neutrophils % Seg Neuts % (Manual) Lymphocytes % (Manual) Monocytes % (Manual) Seg Neutrophils # Seg Neutrophils # Man Lymphocytes # (Manual) Monocytes # (Manual) Eosinophils # (Manual) Basophils # (Manual) PT INR APTT ABG pH 7.267 L ABG pO2 69.8 L ABG HCO3 ABG O2 Saturation 88.4 L ABG Base Excess ABG Hemoglobin 7.1 L Oxyhemoglobin 86.4 L Sodium Potassium Chloride Carbon Dioxide BUN Creatinine Glucose POC Glucose 157 H 128 H Lactic Acid Calcium Ionized Calcium Phosphorus Magnesium Total Bilirubin AST ALT Alkaline Phosphatase Ammonia Total Creatine Kinase CK-MB (CK-2) CK-MB (CK-2) Rel Index Total Protein Albumin Urine WBC (Auto) Vancomycin Trough Salicylates Acetaminophen Plasma/Serum Alcohol Crossmatch 12/19/19 12/19/19 12/19/19 03:37 03:37 05:25 WBC 31.3 H RBC 2.60 L Hgb 7.6 L Hct 23.0 L MCH RDW 19.4 H Plt Count 530 H Lymph % (Auto) Swain % (Auto) Swain # Baso # Seg Neutrophils % Seg Neuts % (Manual) Lymphocytes % (Manual) Monocytes % (Manual) Seg Neutrophils # Seg Neutrophils # Man Lymphocytes # (Manual) Monocytes # (Manual) Eosinophils # (Manual) Basophils # (Manual) PT INR APTT ABG pH ABG pO2 ABG HCO3 ABG O2 Saturation ABG Base Excess ABG Hemoglobin Oxyhemoglobin Sodium Potassium Chloride Carbon Dioxide 18 L BUN 36 H Creatinine Glucose 111 H POC Glucose 123 H Lactic Acid Calcium Ionized Calcium Phosphorus Magnesium Total Bilirubin AST ALT Alkaline Phosphatase Ammonia Total Creatine Kinase CK-MB (CK-2) CK-MB (CK-2) Rel Index Total Protein Albumin Urine WBC (Auto) Vancomycin Trough Salicylates Acetaminophen Plasma/Serum Alcohol Crossmatch 12/19/19 12/19/19 12/20/19 12:59 18:33 00:00 WBC RBC Hgb Hct MCH RDW Plt Count Lymph % (Auto) Swain % (Auto) Swain # Baso # Seg Neutrophils % Seg Neuts % (Manual) Lymphocytes % (Manual) Monocytes % (Manual) Seg Neutrophils # Seg Neutrophils # Man Lymphocytes # (Manual) Monocytes # (Manual) Eosinophils # (Manual) Basophils # (Manual) PT INR APTT ABG pH ABG pO2 ABG HCO3 ABG O2 Saturation ABG Base Excess ABG Hemoglobin Oxyhemoglobin Sodium Potassium Chloride Carbon Dioxide BUN Creatinine Glucose POC Glucose 130 H 118 H 135 H Lactic Acid Calcium Ionized Calcium Phosphorus Magnesium Total Bilirubin AST ALT Alkaline Phosphatase Ammonia Total Creatine Kinase CK-MB (CK-2) CK-MB (CK-2) Rel Index Total Protein Albumin Urine WBC (Auto) Vancomycin Trough Salicylates Acetaminophen Plasma/Serum Alcohol Crossmatch 12/20/19 12/20/19 12/20/19 05:46 12:31 18:07 WBC RBC Hgb Hct MCH RDW Plt Count Lymph % (Auto) Swain % (Auto) Swain # Baso # Seg Neutrophils % Seg Neuts % (Manual) Lymphocytes % (Manual) Monocytes % (Manual) Seg Neutrophils # Seg Neutrophils # Man Lymphocytes # (Manual) Monocytes # (Manual) Eosinophils # (Manual) Basophils # (Manual) PT INR APTT ABG pH ABG pO2 ABG HCO3 ABG O2 Saturation ABG Base Excess ABG Hemoglobin Oxyhemoglobin Sodium Potassium Chloride Carbon Dioxide BUN Creatinine Glucose POC Glucose 131 H 128 H 134 H Lactic Acid Calcium Ionized Calcium Phosphorus Magnesium Total Bilirubin AST ALT Alkaline Phosphatase Ammonia Total Creatine Kinase CK-MB (CK-2) CK-MB (CK-2) Rel Index Total Protein Albumin Urine WBC (Auto) Vancomycin Trough Salicylates Acetaminophen Plasma/Serum Alcohol Crossmatch 12/21/19 12/21/19 12/21/19 03:28 03:28 07:21 WBC 29.4 H RBC 2.30 L Hgb 6.8 L Hct 20.2 L MCH RDW 20.2 H Plt Count 746 H Lymph % (Auto) Swain % (Auto) Swain # Baso # Seg Neutrophils % Seg Neuts % (Manual) 85.0 H Lymphocytes % (Manual) 8.0 L Monocytes % (Manual) Seg Neutrophils # Seg Neutrophils # Man 25.0 H Lymphocytes # (Manual) Monocytes # (Manual) 1.5 H Eosinophils # (Manual) 0.6 H Basophils # (Manual) PT INR APTT ABG pH ABG pO2 ABG HCO3 ABG O2 Saturation ABG Base Excess ABG Hemoglobin Oxyhemoglobin Sodium Potassium Chloride Carbon Dioxide 17 L BUN 57 H Creatinine 1.4 H D Glucose POC Glucose 124 H Lactic Acid Calcium Ionized Calcium Phosphorus Magnesium Total Bilirubin AST ALT Alkaline Phosphatase Ammonia Total Creatine Kinase CK-MB (CK-2) CK-MB (CK-2) Rel Index Total Protein Albumin Urine WBC (Auto) Vancomycin Trough Salicylates Acetaminophen Plasma/Serum Alcohol Crossmatch 12/21/19 12/21/19 12/21/19 08:56 12:06 14:53 WBC RBC Hgb 7.2 L Hct 22.9 L MCH RDW Plt Count Lymph % (Auto) Swain % (Auto) Swain # Baso # Seg Neutrophils % Seg Neuts % (Manual) Lymphocytes % (Manual) Monocytes % (Manual) Seg Neutrophils # Seg Neutrophils # Man Lymphocytes # (Manual) Monocytes # (Manual) Eosinophils # (Manual) Basophils # (Manual) PT INR APTT ABG pH ABG pO2 ABG HCO3 ABG O2 Saturation ABG Base Excess ABG Hemoglobin Oxyhemoglobin Sodium Potassium Chloride Carbon Dioxide BUN Creatinine Glucose POC Glucose 116 H Lactic Acid Calcium Ionized Calcium Phosphorus Magnesium Total Bilirubin AST ALT Alkaline Phosphatase Ammonia Total Creatine Kinase CK-MB (CK-2) CK-MB (CK-2) Rel Index Total Protein Albumin Urine WBC (Auto) Vancomycin Trough 33.8 H Salicylates Acetaminophen Plasma/Serum Alcohol Crossmatch 12/21/19 12/21/19 12/21/19 14:54 17:27 23:49 WBC RBC Hgb Hct MCH RDW Plt Count Lymph % (Auto) Swain % (Auto) Swain # Baso # Seg Neutrophils % Seg Neuts % (Manual) Lymphocytes % (Manual) Monocytes % (Manual) Seg Neutrophils # Seg Neutrophils # Man Lymphocytes # (Manual) Monocytes # (Manual) Eosinophils # (Manual) Basophils # (Manual) PT INR APTT ABG pH ABG pO2 ABG HCO3 ABG O2 Saturation ABG Base Excess ABG Hemoglobin Oxyhemoglobin Sodium Potassium Chloride Carbon Dioxide BUN Creatinine Glucose POC Glucose 145 H 127 H Lactic Acid Calcium Ionized Calcium Phosphorus Magnesium Total Bilirubin AST ALT Alkaline Phosphatase Ammonia Total Creatine Kinase CK-MB (CK-2) CK-MB (CK-2) Rel Index Total Protein Albumin Urine WBC (Auto) Vancomycin Trough Salicylates Acetaminophen Plasma/Serum Alcohol Crossmatch See Detail 12/22/19 12/22/19 12/22/19 04:43 05:56 08:40 WBC RBC Hgb Hct MCH RDW Plt Count Lymph % (Auto) Swain % (Auto) Swain # Baso # Seg Neutrophils % Seg Neuts % (Manual) Lymphocytes % (Manual) Monocytes % (Manual) Seg Neutrophils # Seg Neutrophils # Man Lymphocytes # (Manual) Monocytes # (Manual) Eosinophils # (Manual) Basophils # (Manual) PT INR APTT ABG pH ABG pO2 75.6 L ABG HCO3 ABG O2 Saturation ABG Base Excess -2.6 L ABG Hemoglobin 6.8 L Oxyhemoglobin 94.6 L Sodium Potassium Chloride Carbon Dioxide 17 L BUN 60 H Creatinine 1.4 H Glucose 126 H POC Glucose 153 H Lactic Acid Calcium Ionized Calcium Phosphorus Magnesium Total Bilirubin AST ALT Alkaline Phosphatase Ammonia Total Creatine Kinase CK-MB (CK-2) CK-MB (CK-2) Rel Index Total Protein Albumin Urine WBC (Auto) Vancomycin Trough Salicylates Acetaminophen Plasma/Serum Alcohol Crossmatch 12/22/19 12/22/1920 12:07 17:49 04:30 WBC 22.4 H RBC 2.68 L Hgb 7.6 L Hct 22.9 L MCH RDW 19.9 H Plt Count 998 H Lymph % (Auto) Swain % (Auto) Swain # Baso # Seg Neutrophils % Seg Neuts % (Manual) 88.0 H Lymphocytes % (Manual) 2.0 L Monocytes % (Manual) 9.0 H Seg Neutrophils # Seg Neutrophils # Man 19.7 H Lymphocytes # (Manual) 0.4 L Monocytes # (Manual) 2.0 H Eosinophils # (Manual) Basophils # (Manual) PT INR APTT ABG pH ABG pO2 ABG HCO3 ABG O2 Saturation ABG Base Excess ABG Hemoglobin Oxyhemoglobin Sodium Potassium Chloride Carbon Dioxide BUN Creatinine Glucose POC Glucose 140 H 116 H Lactic Acid Calcium Ionized Calcium Phosphorus Magnesium Total Bilirubin AST ALT Alkaline Phosphatase Ammonia Total Creatine Kinase CK-MB (CK-2) CK-MB (CK-2) Rel Index Total Protein Albumin Urine WBC (Auto) Vancomycin Trough Salicylates Acetaminophen Plasma/Serum Alcohol Crossmatch 12/23/19 12/23/19 12/23/19 04:30 12:00 18:06 WBC RBC Hgb Hct MCH RDW Plt Count Lymph % (Auto) Swain % (Auto) Swain # Baso # Seg Neutrophils % Seg Neuts % (Manual) Lymphocytes % (Manual) Monocytes % (Manual) Seg Neutrophils # Seg Neutrophils # Man Lymphocytes # (Manual) Monocytes # (Manual) Eosinophils # (Manual) Basophils # (Manual) PT INR APTT ABG pH ABG pO2 ABG HCO3 ABG O2 Saturation ABG Base Excess ABG Hemoglobin Oxyhemoglobin Sodium Potassium 5.2 H Chloride Carbon Dioxide 21 L BUN 69 H Creatinine 1.5 H Glucose 117 H POC Glucose 128 H 138 H Lactic Acid Calcium Ionized Calcium Phosphorus Magnesium Total Bilirubin AST ALT Alkaline Phosphatase Ammonia Total Creatine Kinase CK-MB (CK-2) CK-MB (CK-2) Rel Index Total Protein Albumin Urine WBC (Auto) Vancomycin Trough Salicylates Acetaminophen Plasma/Serum Alcohol Crossmatch 12/23/19 12/24/19 12/24/19 23:46 04:31 05:08 WBC RBC Hgb Hct MCH RDW Plt Count Lymph % (Auto) Swain % (Auto) Swain # Baso # Seg Neutrophils % Seg Neuts % (Manual) Lymphocytes % (Manual) Monocytes % (Manual) Seg Neutrophils # Seg Neutrophils # Man Lymphocytes # (Manual) Monocytes # (Manual) Eosinophils # (Manual) Basophils # (Manual) PT INR APTT ABG pH ABG pO2 ABG HCO3 ABG O2 Saturation ABG Base Excess ABG Hemoglobin Oxyhemoglobin Sodium Potassium 5.3 H Chloride 107.6 H Carbon Dioxide 20 L BUN 72 H Creatinine 1.6 H Glucose 120 H POC Glucose 120 H 140 H Lactic Acid Calcium Ionized Calcium Phosphorus Magnesium Total Bilirubin AST ALT Alkaline Phosphatase Ammonia Total Creatine Kinase CK-MB (CK-2) CK-MB (CK-2) Rel Index Total Protein Albumin Urine WBC (Auto) Vancomycin Trough Salicylates Acetaminophen Plasma/Serum Alcohol Crossmatch 12/24/19 12/24/19 12/25/19 11:58 17:49 03:47 WBC 36.2 H RBC 2.92 L Hgb 8.4 L Hct 26.1 L MCH RDW 20.2 H Plt Count 942 H Lymph % (Auto) Swain % (Auto) Swain # Baso # Seg Neutrophils % Seg Neuts % (Manual) 97.5 H Lymphocytes % (Manual) 1.0 L Monocytes % (Manual) Seg Neutrophils # Seg Neutrophils # Man 35.3 H Lymphocytes # (Manual) 0.4 L Monocytes # (Manual) Eosinophils # (Manual) Basophils # (Manual) PT INR APTT ABG pH ABG pO2 ABG HCO3 ABG O2 Saturation ABG Base Excess ABG Hemoglobin Oxyhemoglobin Sodium Potassium Chloride Carbon Dioxide BUN Creatinine Glucose POC Glucose 146 H 131 H Lactic Acid Calcium Ionized Calcium Phosphorus Magnesium Total Bilirubin AST ALT Alkaline Phosphatase Ammonia Total Creatine Kinase CK-MB (CK-2) CK-MB (CK-2) Rel Index Total Protein Albumin Urine WBC (Auto) Vancomycin Trough Salicylates Acetaminophen Plasma/Serum Alcohol Crossmatch 12/25/19 12/25/19 12/25/19 03:47 05:30 12:23 WBC RBC Hgb Hct MCH RDW Plt Count Lymph % (Auto) Swain % (Auto) Swain # Baso # Seg Neutrophils % Seg Neuts % (Manual) Lymphocytes % (Manual) Monocytes % (Manual) Seg Neutrophils # Seg Neutrophils # Man Lymphocytes # (Manual) Monocytes # (Manual) Eosinophils # (Manual) Basophils # (Manual) PT INR APTT ABG pH ABG pO2 ABG HCO3 ABG O2 Saturation ABG Base Excess ABG Hemoglobin Oxyhemoglobin Sodium Potassium Chloride Carbon Dioxide 15 L BUN 70 H Creatinine 1.7 H Glucose 153 H POC Glucose 169 H 135 H Lactic Acid Calcium Ionized Calcium Phosphorus Magnesium Total Bilirubin AST ALT Alkaline Phosphatase Ammonia Total Creatine Kinase CK-MB (CK-2) CK-MB (CK-2) Rel Index Total Protein Albumin Urine WBC (Auto) Vancomycin Trough Salicylates Acetaminophen Plasma/Serum Alcohol Crossmatch 12/25/19 12/25/19 12/26/19 17:37 23:29 09:47 WBC 22.1 H RBC 2.83 L Hgb 7.9 L Hct 25.5 L MCH RDW 20.0 H Plt Count 894 H Lymph % (Auto) Swain % (Auto) Swain # Baso # Seg Neutrophils % Seg Neuts % (Manual) Lymphocytes % (Manual) Monocytes % (Manual) Seg Neutrophils # Seg Neutrophils # Man Lymphocytes # (Manual) Monocytes # (Manual) Eosinophils # (Manual) Basophils # (Manual) PT INR APTT ABG pH ABG pO2 ABG HCO3 ABG O2 Saturation ABG Base Excess ABG Hemoglobin Oxyhemoglobin Sodium Potassium Chloride Carbon Dioxide BUN Creatinine Glucose POC Glucose 120 H 140 H Lactic Acid Calcium Ionized Calcium Phosphorus Magnesium Total Bilirubin AST ALT Alkaline Phosphatase Ammonia Total Creatine Kinase CK-MB (CK-2) CK-MB (CK-2) Rel Index Total Protein Albumin Urine WBC (Auto) Vancomycin Trough Salicylates Acetaminophen Plasma/Serum Alcohol Crossmatch 12/26/19 12/26/19 12/26/19 09:47 11:46 17:52 WBC RBC Hgb Hct MCH RDW Plt Count Lymph % (Auto) Swain % (Auto) Swain # Baso # Seg Neutrophils % Seg Neuts % (Manual) Lymphocytes % (Manual) Monocytes % (Manual) Seg Neutrophils # Seg Neutrophils # Man Lymphocytes # (Manual) Monocytes # (Manual) Eosinophils # (Manual) Basophils # (Manual) PT INR APTT ABG pH ABG pO2 ABG HCO3 ABG O2 Saturation ABG Base Excess ABG Hemoglobin Oxyhemoglobin Sodium Potassium Chloride Carbon Dioxide 18 L BUN 65 H Creatinine 1.4 H Glucose 132 H POC Glucose 110 H 145 H Lactic Acid Calcium Ionized Calcium Phosphorus Magnesium Total Bilirubin AST ALT Alkaline Phosphatase Ammonia Total Creatine Kinase CK-MB (CK-2) CK-MB (CK-2) Rel Index Total Protein Albumin Urine WBC (Auto) Vancomycin Trough Salicylates Acetaminophen Plasma/Serum Alcohol Crossmatch 12/27/19 12/27/19 12/27/19 00:01 03:42 03:42 WBC 18.0 H RBC 2.86 L Hgb 8.0 L Hct 25.2 L MCH RDW 19.2 H Plt Count 873 H Lymph % (Auto) 8.4 L Swain % (Auto) 7.5 H Swain # 1.4 H Baso # 0.2 H Seg Neutrophils % 82.2 H Seg Neuts % (Manual) Lymphocytes % (Manual) Monocytes % (Manual) Seg Neutrophils # 14.8 H Seg Neutrophils # Man Lymphocytes # (Manual) Monocytes # (Manual) Eosinophils # (Manual) Basophils # (Manual) PT INR APTT ABG pH ABG pO2 ABG HCO3 ABG O2 Saturation ABG Base Excess ABG Hemoglobin Oxyhemoglobin Sodium Potassium Chloride Carbon Dioxide BUN 73 H Creatinine 1.4 H Glucose 119 H POC Glucose 124 H Lactic Acid Calcium Ionized Calcium Phosphorus Magnesium Total Bilirubin AST ALT Alkaline Phosphatase Ammonia Total Creatine Kinase CK-MB (CK-2) CK-MB (CK-2) Rel Index Total Protein Albumin Urine WBC (Auto) Vancomycin Trough Salicylates Acetaminophen Plasma/Serum Alcohol Crossmatch 12/27/19 12/27/19 12/27/19 05:45 11:45 17:29 WBC RBC Hgb Hct MCH RDW Plt Count Lymph % (Auto) Swain % (Auto) Swain # Baso # Seg Neutrophils % Seg Neuts % (Manual) Lymphocytes % (Manual) Monocytes % (Manual) Seg Neutrophils # Seg Neutrophils # Man Lymphocytes # (Manual) Monocytes # (Manual) Eosinophils # (Manual) Basophils # (Manual) PT INR APTT ABG pH ABG pO2 ABG HCO3 ABG O2 Saturation ABG Base Excess ABG Hemoglobin Oxyhemoglobin Sodium Potassium Chloride Carbon Dioxide BUN Creatinine Glucose POC Glucose 131 H 123 H 134 H Lactic Acid Calcium Ionized Calcium Phosphorus Magnesium Total Bilirubin AST ALT Alkaline Phosphatase Ammonia Total Creatine Kinase CK-MB (CK-2) CK-MB (CK-2) Rel Index Total Protein Albumin Urine WBC (Auto) Vancomycin Trough Salicylates Acetaminophen Plasma/Serum Alcohol Crossmatch 12/28/19 12/28/19 12/28/19 00:12 05:14 11:53 WBC RBC Hgb Hct MCH RDW Plt Count Lymph % (Auto) Swain % (Auto) Swain # Baso # Seg Neutrophils % Seg Neuts % (Manual) Lymphocytes % (Manual) Monocytes % (Manual) Seg Neutrophils # Seg Neutrophils # Man Lymphocytes # (Manual) Monocytes # (Manual) Eosinophils # (Manual) Basophils # (Manual) PT INR APTT ABG pH ABG pO2 ABG HCO3 ABG O2 Saturation ABG Base Excess ABG Hemoglobin Oxyhemoglobin Sodium Potassium Chloride Carbon Dioxide BUN Creatinine Glucose POC Glucose 138 H 130 H 146 H Lactic Acid Calcium Ionized Calcium Phosphorus Magnesium Total Bilirubin AST ALT Alkaline Phosphatase Ammonia Total Creatine Kinase CK-MB (CK-2) CK-MB (CK-2) Rel Index Total Protein Albumin Urine WBC (Auto) Vancomycin Trough Salicylates Acetaminophen Plasma/Serum Alcohol Crossmatch 12/28/19 12/29/19 12/29/19 17:39 00:01 18:11 WBC RBC Hgb Hct MCH RDW Plt Count Lymph % (Auto) Swain % (Auto) Swain # Baso # Seg Neutrophils % Seg Neuts % (Manual) Lymphocytes % (Manual) Monocytes % (Manual) Seg Neutrophils # Seg Neutrophils # Man Lymphocytes # (Manual) Monocytes # (Manual) Eosinophils # (Manual) Basophils # (Manual) PT INR APTT ABG pH ABG pO2 ABG HCO3 ABG O2 Saturation ABG Base Excess ABG Hemoglobin Oxyhemoglobin Sodium Potassium Chloride Carbon Dioxide BUN Creatinine Glucose POC Glucose 117 H 139 H 130 H Lactic Acid Calcium Ionized Calcium Phosphorus Magnesium Total Bilirubin AST ALT Alkaline Phosphatase Ammonia Total Creatine Kinase CK-MB (CK-2) CK-MB (CK-2) Rel Index Total Protein Albumin Urine WBC (Auto) Vancomycin Trough Salicylates Acetaminophen Plasma/Serum Alcohol Crossmatch 12/29/19 12/30/19 12/30/19 23:09 00:02 01:06 WBC 16.7 H RBC 2.91 L Hgb 8.2 L Hct 25.4 L MCH RDW 18.7 H Plt Count 708 H Lymph % (Auto) 9.4 L Swain % (Auto) Swain # 0.9 H Baso # Seg Neutrophils % 83.5 H Seg Neuts % (Manual) Lymphocytes % (Manual) Monocytes % (Manual) Seg Neutrophils # 14.0 H Seg Neutrophils # Man Lymphocytes # (Manual) Monocytes # (Manual) Eosinophils # (Manual) Basophils # (Manual) PT INR APTT ABG pH ABG pO2 ABG HCO3 ABG O2 Saturation ABG Base Excess ABG Hemoglobin Oxyhemoglobin Sodium Potassium Chloride Carbon Dioxide BUN Creatinine Glucose POC Glucose 120 H 114 H Lactic Acid Calcium Ionized Calcium Phosphorus Magnesium Total Bilirubin AST ALT Alkaline Phosphatase Ammonia Total Creatine Kinase CK-MB (CK-2) CK-MB (CK-2) Rel Index Total Protein Albumin Urine WBC (Auto) Vancomycin Trough Salicylates Acetaminophen Plasma/Serum Alcohol Crossmatch 12/30/19 12/30/19 12/30/19 01:06 04:23 05:18 WBC RBC Hgb Hct MCH RDW Plt Count Lymph % (Auto) Swain % (Auto) Swain # Baso # Seg Neutrophils % Seg Neuts % (Manual) Lymphocytes % (Manual) Monocytes % (Manual) Seg Neutrophils # Seg Neutrophils # Man Lymphocytes # (Manual) Monocytes # (Manual) Eosinophils # (Manual) Basophils # (Manual) PT INR APTT ABG pH ABG pO2 ABG HCO3 ABG O2 Saturation ABG Base Excess ABG Hemoglobin 8.3 L Oxyhemoglobin Sodium Potassium Chloride Carbon Dioxide BUN 70 H Creatinine Glucose 122 H POC Glucose 130 H Lactic Acid Calcium Ionized Calcium Phosphorus Magnesium Total Bilirubin AST ALT Alkaline Phosphatase Ammonia Total Creatine Kinase CK-MB (CK-2) CK-MB (CK-2) Rel Index Total Protein Albumin Urine WBC (Auto) Vancomycin Trough Salicylates Acetaminophen Plasma/Serum Alcohol Crossmatch 12/30/19 12/30/19 12/30/19 05:40 12:17 17:43 WBC RBC Hgb Hct MCH RDW Plt Count Lymph % (Auto) Swain % (Auto) Swain # Baso # Seg Neutrophils % Seg Neuts % (Manual) Lymphocytes % (Manual) Monocytes % (Manual) Seg Neutrophils # Seg Neutrophils # Man Lymphocytes # (Manual) Monocytes # (Manual) Eosinophils # (Manual) Basophils # (Manual) PT INR APTT ABG pH ABG pO2 ABG HCO3 ABG O2 Saturation ABG Base Excess ABG Hemoglobin Oxyhemoglobin Sodium Potassium Chloride Carbon Dioxide BUN Creatinine Glucose POC Glucose 135 H 132 H 118 H Lactic Acid Calcium Ionized Calcium Phosphorus Magnesium Total Bilirubin AST ALT Alkaline Phosphatase Ammonia Total Creatine Kinase CK-MB (CK-2) CK-MB (CK-2) Rel Index Total Protein Albumin Urine WBC (Auto) Vancomycin Trough Salicylates Acetaminophen Plasma/Serum Alcohol Crossmatch 12/30/19 12/31/19 12/31/19 23:29 05:19 17:50 WBC RBC Hgb Hct MCH RDW Plt Count Lymph % (Auto) Swain % (Auto) Swain # Baso # Seg Neutrophils % Seg Neuts % (Manual) Lymphocytes % (Manual) Monocytes % (Manual) Seg Neutrophils # Seg Neutrophils # Man Lymphocytes # (Manual) Monocytes # (Manual) Eosinophils # (Manual) Basophils # (Manual) PT INR APTT ABG pH ABG pO2 ABG HCO3 ABG O2 Saturation ABG Base Excess ABG Hemoglobin Oxyhemoglobin Sodium Potassium Chloride Carbon Dioxide BUN Creatinine Glucose POC Glucose 114 H 109 H 116 H Lactic Acid Calcium Ionized Calcium Phosphorus Magnesium Total Bilirubin AST ALT Alkaline Phosphatase Ammonia Total Creatine Kinase CK-MB (CK-2) CK-MB (CK-2) Rel Index Total Protein Albumin Urine WBC (Auto) Vancomycin Trough Salicylates Acetaminophen Plasma/Serum Alcohol Crossmatch 01/01/20 01/01/20 01/01/20 00:10 05:19 12:02 WBC RBC Hgb Hct MCH RDW Plt Count Lymph % (Auto) Swain % (Auto) Swain # Baso # Seg Neutrophils % Seg Neuts % (Manual) Lymphocytes % (Manual) Monocytes % (Manual) Seg Neutrophils # Seg Neutrophils # Man Lymphocytes # (Manual) Monocytes # (Manual) Eosinophils # (Manual) Basophils # (Manual) PT INR APTT ABG pH ABG pO2 ABG HCO3 ABG O2 Saturation ABG Base Excess ABG Hemoglobin Oxyhemoglobin Sodium Potassium Chloride Carbon Dioxide BUN Creatinine Glucose POC Glucose 131 H 122 H 136 H Lactic Acid Calcium Ionized Calcium Phosphorus Magnesium Total Bilirubin AST ALT Alkaline Phosphatase Ammonia Total Creatine Kinase CK-MB (CK-2) CK-MB (CK-2) Rel Index Total Protein Albumin Urine WBC (Auto) Vancomycin Trough Salicylates Acetaminophen Plasma/Serum Alcohol Crossmatch 01/02/20 01/02/20 01/02/20 00:24 05:36 11:41 WBC RBC Hgb Hct MCH RDW Plt Count Lymph % (Auto) Swain % (Auto) Swain # Baso # Seg Neutrophils % Seg Neuts % (Manual) Lymphocytes % (Manual) Monocytes % (Manual) Seg Neutrophils # Seg Neutrophils # Man Lymphocytes # (Manual) Monocytes # (Manual) Eosinophils # (Manual) Basophils # (Manual) PT INR APTT ABG pH ABG pO2 ABG HCO3 ABG O2 Saturation ABG Base Excess ABG Hemoglobin Oxyhemoglobin Sodium Potassium Chloride Carbon Dioxide BUN Creatinine Glucose POC Glucose 119 H 109 H 125 H Lactic Acid Calcium Ionized Calcium Phosphorus Magnesium Total Bilirubin AST ALT Alkaline Phosphatase Ammonia Total Creatine Kinase CK-MB (CK-2) CK-MB (CK-2) Rel Index Total Protein Albumin Urine WBC (Auto) Vancomycin Trough Salicylates Acetaminophen Plasma/Serum Alcohol Crossmatch 01/02/20 01/03/20 01/03/20 17:49 05:29 12:13 WBC RBC Hgb Hct MCH RDW Plt Count Lymph % (Auto) Swain % (Auto) Swain # Baso # Seg Neutrophils % Seg Neuts % (Manual) Lymphocytes % (Manual) Monocytes % (Manual) Seg Neutrophils # Seg Neutrophils # Man Lymphocytes # (Manual) Monocytes # (Manual) Eosinophils # (Manual) Basophils # (Manual) PT INR APTT ABG pH ABG pO2 ABG HCO3 ABG O2 Saturation ABG Base Excess ABG Hemoglobin Oxyhemoglobin Sodium Potassium Chloride Carbon Dioxide BUN Creatinine Glucose POC Glucose 130 H 132 H 113 H Lactic Acid Calcium Ionized Calcium Phosphorus Magnesium Total Bilirubin AST ALT Alkaline Phosphatase Ammonia Total Creatine Kinase CK-MB (CK-2) CK-MB (CK-2) Rel Index Total Protein Albumin Urine WBC (Auto) Vancomycin Trough Salicylates Acetaminophen Plasma/Serum Alcohol Crossmatch 01/03/20 01/04/20 01/04/20 17:32 00:19 05:26 WBC RBC Hgb Hct MCH RDW Plt Count Lymph % (Auto) Swain % (Auto) Swain # Baso # Seg Neutrophils % Seg Neuts % (Manual) Lymphocytes % (Manual) Monocytes % (Manual) Seg Neutrophils # Seg Neutrophils # Man Lymphocytes # (Manual) Monocytes # (Manual) Eosinophils # (Manual) Basophils # (Manual) PT INR APTT ABG pH ABG pO2 ABG HCO3 ABG O2 Saturation ABG Base Excess ABG Hemoglobin Oxyhemoglobin Sodium Potassium Chloride Carbon Dioxide BUN Creatinine Glucose POC Glucose 127 H 141 H 129 H Lactic Acid Calcium Ionized Calcium Phosphorus Magnesium Total Bilirubin AST ALT Alkaline Phosphatase Ammonia Total Creatine Kinase CK-MB (CK-2) CK-MB (CK-2) Rel Index Total Protein Albumin Urine WBC (Auto) Vancomycin Trough Salicylates Acetaminophen Plasma/Serum Alcohol Crossmatch 01/04/20 01/04/20 01/05/20 11:39 17:29 05:22 WBC RBC Hgb Hct MCH RDW Plt Count Lymph % (Auto) Swain % (Auto) Swain # Baso # Seg Neutrophils % Seg Neuts % (Manual) Lymphocytes % (Manual) Monocytes % (Manual) Seg Neutrophils # Seg Neutrophils # Man Lymphocytes # (Manual) Monocytes # (Manual) Eosinophils # (Manual) Basophils # (Manual) PT INR APTT ABG pH ABG pO2 ABG HCO3 ABG O2 Saturation ABG Base Excess ABG Hemoglobin Oxyhemoglobin Sodium Potassium Chloride Carbon Dioxide BUN Creatinine Glucose POC Glucose 167 H 132 H 121 H Lactic Acid Calcium Ionized Calcium Phosphorus Magnesium Total Bilirubin AST ALT Alkaline Phosphatase Ammonia Total Creatine Kinase CK-MB (CK-2) CK-MB (CK-2) Rel Index Total Protein Albumin Urine WBC (Auto) Vancomycin Trough Salicylates Acetaminophen Plasma/Serum Alcohol Crossmatch 01/05/20 01/05/20 01/05/20 12:25 17:40 18:06 WBC RBC Hgb Hct MCH RDW Plt Count Lymph % (Auto) Swain % (Auto) Swain # Baso # Seg Neutrophils % Seg Neuts % (Manual) Lymphocytes % (Manual) Monocytes % (Manual) Seg Neutrophils # Seg Neutrophils # Man Lymphocytes # (Manual) Monocytes # (Manual) Eosinophils # (Manual) Basophils # (Manual) PT INR APTT ABG pH 7.472 H ABG pO2 99.2 H ABG HCO3 ABG O2 Saturation ABG Base Excess ABG Hemoglobin 7.8 L Oxyhemoglobin Sodium Potassium Chloride Carbon Dioxide BUN Creatinine Glucose POC Glucose 106 H 110 H Lactic Acid Calcium Ionized Calcium Phosphorus Magnesium Total Bilirubin AST ALT Alkaline Phosphatase Ammonia Total Creatine Kinase CK-MB (CK-2) CK-MB (CK-2) Rel Index Total Protein Albumin Urine WBC (Auto) Vancomycin Trough Salicylates Acetaminophen Plasma/Serum Alcohol Crossmatch 01/06/20 01/06/20 01/06/20 00:11 05:16 11:30 WBC RBC Hgb Hct MCH RDW Plt Count Lymph % (Auto) Swain % (Auto) Swain # Baso # Seg Neutrophils % Seg Neuts % (Manual) Lymphocytes % (Manual) Monocytes % (Manual) Seg Neutrophils # Seg Neutrophils # Man Lymphocytes # (Manual) Monocytes # (Manual) Eosinophils # (Manual) Basophils # (Manual) PT INR APTT ABG pH ABG pO2 ABG HCO3 ABG O2 Saturation ABG Base Excess ABG Hemoglobin Oxyhemoglobin Sodium Potassium Chloride Carbon Dioxide BUN Creatinine Glucose POC Glucose 108 H 124 H 125 H Lactic Acid Calcium Ionized Calcium Phosphorus Magnesium Total Bilirubin AST ALT Alkaline Phosphatase Ammonia Total Creatine Kinase CK-MB (CK-2) CK-MB (CK-2) Rel Index Total Protein Albumin Urine WBC (Auto) Vancomycin Trough Salicylates Acetaminophen Plasma/Serum Alcohol Crossmatch 01/06/20 01/06/20 01/07/20 17:53 23:51 04:12 WBC 16.5 H RBC 3.29 L Hgb 9.3 L Hct 28.1 L MCH RDW 18.2 H Plt Count 526 H Lymph % (Auto) 8.4 L Swain % (Auto) Swain # 1.0 H Baso # Seg Neutrophils % 84.4 H Seg Neuts % (Manual) Lymphocytes % (Manual) Monocytes % (Manual) Seg Neutrophils # 13.9 H Seg Neutrophils # Man Lymphocytes # (Manual) Monocytes # (Manual) Eosinophils # (Manual) Basophils # (Manual) PT INR APTT ABG pH ABG pO2 ABG HCO3 ABG O2 Saturation ABG Base Excess ABG Hemoglobin Oxyhemoglobin Sodium Potassium Chloride Carbon Dioxide BUN Creatinine Glucose POC Glucose 166 H 128 H Lactic Acid Calcium Ionized Calcium Phosphorus Magnesium Total Bilirubin AST ALT Alkaline Phosphatase Ammonia Total Creatine Kinase CK-MB (CK-2) CK-MB (CK-2) Rel Index Total Protein Albumin Urine WBC (Auto) Vancomycin Trough Salicylates Acetaminophen Plasma/Serum Alcohol Crossmatch 01/07/20 01/07/20 01/07/20 04:12 04:45 11:51 WBC RBC Hgb Hct MCH RDW Plt Count Lymph % (Auto) Swain % (Auto) Swain # Baso # Seg Neutrophils % Seg Neuts % (Manual) Lymphocytes % (Manual) Monocytes % (Manual) Seg Neutrophils # Seg Neutrophils # Man Lymphocytes # (Manual) Monocytes # (Manual) Eosinophils # (Manual) Basophils # (Manual) PT INR APTT ABG pH ABG pO2 ABG HCO3 ABG O2 Saturation ABG Base Excess ABG Hemoglobin Oxyhemoglobin Sodium 136 L Potassium Chloride Carbon Dioxide 21 L BUN 44 H Creatinine 0.6 L Glucose 124 H POC Glucose 134 H 138 H Lactic Acid Calcium Ionized Calcium Phosphorus Magnesium Total Bilirubin AST ALT Alkaline Phosphatase Ammonia Total Creatine Kinase CK-MB (CK-2) CK-MB (CK-2) Rel Index Total Protein Albumin Urine WBC (Auto) Vancomycin Trough Salicylates Acetaminophen Plasma/Serum Alcohol Crossmatch 01/07/20 01/08/20 01/08/20 17:36 00:33 05:29 WBC RBC Hgb Hct MCH RDW Plt Count Lymph % (Auto) Swain % (Auto) Swain # Baso # Seg Neutrophils % Seg Neuts % (Manual) Lymphocytes % (Manual) Monocytes % (Manual) Seg Neutrophils # Seg Neutrophils # Man Lymphocytes # (Manual) Monocytes # (Manual) Eosinophils # (Manual) Basophils # (Manual) PT INR APTT ABG pH ABG pO2 ABG HCO3 ABG O2 Saturation ABG Base Excess ABG Hemoglobin Oxyhemoglobin Sodium Potassium Chloride Carbon Dioxide BUN Creatinine Glucose POC Glucose 128 H 119 H 124 H Lactic Acid Calcium Ionized Calcium Phosphorus Magnesium Total Bilirubin AST ALT Alkaline Phosphatase Ammonia Total Creatine Kinase CK-MB (CK-2) CK-MB (CK-2) Rel Index Total Protein Albumin Urine WBC (Auto) Vancomycin Trough Salicylates Acetaminophen Plasma/Serum Alcohol Crossmatch 01/08/20 01/08/20 01/08/20 12:51 20:25 23:22 WBC RBC Hgb Hct MCH RDW Plt Count Lymph % (Auto) Swain % (Auto) Swain # Baso # Seg Neutrophils % Seg Neuts % (Manual) Lymphocytes % (Manual) Monocytes % (Manual) Seg Neutrophils # Seg Neutrophils # Man Lymphocytes # (Manual) Monocytes # (Manual) Eosinophils # (Manual) Basophils # (Manual) PT INR APTT ABG pH ABG pO2 132.2 H ABG HCO3 ABG O2 Saturation ABG Base Excess ABG Hemoglobin Oxyhemoglobin Sodium Potassium Chloride Carbon Dioxide BUN Creatinine Glucose POC Glucose 128 H 127 H Lactic Acid Calcium Ionized Calcium Phosphorus Magnesium Total Bilirubin AST ALT Alkaline Phosphatase Ammonia Total Creatine Kinase CK-MB (CK-2) CK-MB (CK-2) Rel Index Total Protein Albumin Urine WBC (Auto) Vancomycin Trough Salicylates Acetaminophen Plasma/Serum Alcohol Crossmatch 01/09/20 01/09/20 01/09/20 05:48 08:51 11:29 WBC RBC Hgb Hct MCH RDW Plt Count Lymph % (Auto) Swain % (Auto) Swain # Baso # Seg Neutrophils % Seg Neuts % (Manual) Lymphocytes % (Manual) Monocytes % (Manual) Seg Neutrophils # Seg Neutrophils # Man Lymphocytes # (Manual) Monocytes # (Manual) Eosinophils # (Manual) Basophils # (Manual) PT INR APTT ABG pH ABG pO2 94.3 H ABG HCO3 ABG O2 Saturation ABG Base Excess ABG Hemoglobin 9.5 L Oxyhemoglobin Sodium Potassium Chloride Carbon Dioxide BUN Creatinine Glucose POC Glucose 120 H 112 H Lactic Acid Calcium Ionized Calcium Phosphorus Magnesium Total Bilirubin AST ALT Alkaline Phosphatase Ammonia Total Creatine Kinase CK-MB (CK-2) CK-MB (CK-2) Rel Index Total Protein Albumin Urine WBC (Auto) Vancomycin Trough Salicylates Acetaminophen Plasma/Serum Alcohol Crossmatch 01/09/20 01/10/20 01/10/20 17:57 05:17 12:28 WBC RBC Hgb Hct MCH RDW Plt Count Lymph % (Auto) Swain % (Auto) Swain # Baso # Seg Neutrophils % Seg Neuts % (Manual) Lymphocytes % (Manual) Monocytes % (Manual) Seg Neutrophils # Seg Neutrophils # Man Lymphocytes # (Manual) Monocytes # (Manual) Eosinophils # (Manual) Basophils # (Manual) PT INR APTT ABG pH ABG pO2 ABG HCO3 ABG O2 Saturation ABG Base Excess ABG Hemoglobin Oxyhemoglobin Sodium Potassium Chloride Carbon Dioxide BUN Creatinine Glucose POC Glucose 122 H 115 H 116 H Lactic Acid Calcium Ionized Calcium Phosphorus Magnesium Total Bilirubin AST ALT Alkaline Phosphatase Ammonia Total Creatine Kinase CK-MB (CK-2) CK-MB (CK-2) Rel Index Total Protein Albumin Urine WBC (Auto) Vancomycin Trough Salicylates Acetaminophen Plasma/Serum Alcohol Crossmatch 01/10/20 01/10/20 01/11/20 18:25 23:47 06:05 WBC RBC Hgb Hct MCH RDW Plt Count Lymph % (Auto) Swain % (Auto) Swain # Baso # Seg Neutrophils % Seg Neuts % (Manual) Lymphocytes % (Manual) Monocytes % (Manual) Seg Neutrophils # Seg Neutrophils # Man Lymphocytes # (Manual) Monocytes # (Manual) Eosinophils # (Manual) Basophils # (Manual) PT INR APTT ABG pH ABG pO2 ABG HCO3 ABG O2 Saturation ABG Base Excess ABG Hemoglobin Oxyhemoglobin Sodium Potassium Chloride Carbon Dioxide BUN Creatinine Glucose POC Glucose 123 H 115 H 151 H Lactic Acid Calcium Ionized Calcium Phosphorus Magnesium Total Bilirubin AST ALT Alkaline Phosphatase Ammonia Total Creatine Kinase CK-MB (CK-2) CK-MB (CK-2) Rel Index Total Protein Albumin Urine WBC (Auto) Vancomycin Trough Salicylates Acetaminophen Plasma/Serum Alcohol Crossmatch 01/11/20 01/11/20 01/11/20 07:00 07:00 12:27 WBC 11.8 H RBC 3.40 L Hgb 9.4 L Hct 29.3 L MCH RDW 18.1 H Plt Count 549 H Lymph % (Auto) Swain % (Auto) 9.1 H Swain # 1.1 H Baso # Seg Neutrophils % 73.3 H Seg Neuts % (Manual) Lymphocytes % (Manual) Monocytes % (Manual) Seg Neutrophils # 8.7 H Seg Neutrophils # Man Lymphocytes # (Manual) Monocytes # (Manual) Eosinophils # (Manual) Basophils # (Manual) PT INR APTT ABG pH ABG pO2 ABG HCO3 ABG O2 Saturation ABG Base Excess ABG Hemoglobin Oxyhemoglobin Sodium 134 L Potassium Chloride 97.7 L Carbon Dioxide 21 L BUN 38 H Creatinine 0.5 L Glucose 168 H POC Glucose 117 H Lactic Acid Calcium 10.5 H Ionized Calcium Phosphorus Magnesium Total Bilirubin AST ALT Alkaline Phosphatase Ammonia Total Creatine Kinase CK-MB (CK-2) CK-MB (CK-2) Rel Index Total Protein Albumin Urine WBC (Auto) Vancomycin Trough Salicylates Acetaminophen Plasma/Serum Alcohol Crossmatch 01/11/20 01/12/20 01/12/20 18:19 00:53 05:24 WBC RBC Hgb Hct MCH RDW Plt Count Lymph % (Auto) Swain % (Auto) Swain # Baso # Seg Neutrophils % Seg Neuts % (Manual) Lymphocytes % (Manual) Monocytes % (Manual) Seg Neutrophils # Seg Neutrophils # Man Lymphocytes # (Manual) Monocytes # (Manual) Eosinophils # (Manual) Basophils # (Manual) PT INR APTT ABG pH ABG pO2 ABG HCO3 ABG O2 Saturation ABG Base Excess ABG Hemoglobin Oxyhemoglobin Sodium Potassium Chloride Carbon Dioxide BUN Creatinine Glucose POC Glucose 126 H 126 H 128 H Lactic Acid Calcium Ionized Calcium Phosphorus Magnesium Total Bilirubin AST ALT Alkaline Phosphatase Ammonia Total Creatine Kinase CK-MB (CK-2) CK-MB (CK-2) Rel Index Total Protein Albumin Urine WBC (Auto) Vancomycin Trough Salicylates Acetaminophen Plasma/Serum Alcohol Crossmatch 01/12/20 01/12/20 01/13/20 13:39 18:02 00:27 WBC RBC Hgb Hct MCH RDW Plt Count Lymph % (Auto) Swain % (Auto) Swain # Baso # Seg Neutrophils % Seg Neuts % (Manual) Lymphocytes % (Manual) Monocytes % (Manual) Seg Neutrophils # Seg Neutrophils # Man Lymphocytes # (Manual) Monocytes # (Manual) Eosinophils # (Manual) Basophils # (Manual) PT INR APTT ABG pH ABG pO2 ABG HCO3 ABG O2 Saturation ABG Base Excess ABG Hemoglobin Oxyhemoglobin Sodium Potassium Chloride Carbon Dioxide BUN Creatinine Glucose POC Glucose 146 H 125 H 131 H Lactic Acid Calcium Ionized Calcium Phosphorus Magnesium Total Bilirubin AST ALT Alkaline Phosphatase Ammonia Total Creatine Kinase CK-MB (CK-2) CK-MB (CK-2) Rel Index Total Protein Albumin Urine WBC (Auto) Vancomycin Trough Salicylates Acetaminophen Plasma/Serum Alcohol Crossmatch 01/13/20 01/13/20 01/13/20 05:44 11:54 17:18 WBC RBC Hgb Hct MCH RDW Plt Count Lymph % (Auto) Swain % (Auto) Swain # Baso # Seg Neutrophils % Seg Neuts % (Manual) Lymphocytes % (Manual) Monocytes % (Manual) Seg Neutrophils # Seg Neutrophils # Man Lymphocytes # (Manual) Monocytes # (Manual) Eosinophils # (Manual) Basophils # (Manual) PT INR APTT ABG pH ABG pO2 ABG HCO3 ABG O2 Saturation ABG Base Excess ABG Hemoglobin Oxyhemoglobin Sodium Potassium Chloride Carbon Dioxide BUN Creatinine Glucose POC Glucose 148 H 140 H 130 H Lactic Acid Calcium Ionized Calcium Phosphorus Magnesium Total Bilirubin AST ALT Alkaline Phosphatase Ammonia Total Creatine Kinase CK-MB (CK-2) CK-MB (CK-2) Rel Index Total Protein Albumin Urine WBC (Auto) Vancomycin Trough Salicylates Acetaminophen Plasma/Serum Alcohol Crossmatch 01/14/20 01/14/20 01/14/20 00:16 05:45 12:19 WBC RBC Hgb Hct MCH RDW Plt Count Lymph % (Auto) Swain % (Auto) Swain # Baso # Seg Neutrophils % Seg Neuts % (Manual) Lymphocytes % (Manual) Monocytes % (Manual) Seg Neutrophils # Seg Neutrophils # Man Lymphocytes # (Manual) Monocytes # (Manual) Eosinophils # (Manual) Basophils # (Manual) PT INR APTT ABG pH ABG pO2 ABG HCO3 ABG O2 Saturation ABG Base Excess ABG Hemoglobin Oxyhemoglobin Sodium Potassium Chloride Carbon Dioxide BUN Creatinine Glucose POC Glucose 125 H 146 H 147 H Lactic Acid Calcium Ionized Calcium Phosphorus Magnesium Total Bilirubin AST ALT Alkaline Phosphatase Ammonia Total Creatine Kinase CK-MB (CK-2) CK-MB (CK-2) Rel Index Total Protein Albumin Urine WBC (Auto) Vancomycin Trough Salicylates Acetaminophen Plasma/Serum Alcohol Crossmatch 01/14/20 01/14/20 01/15/20 18:10 23:54 05:14 WBC RBC Hgb Hct MCH RDW Plt Count Lymph % (Auto) Swain % (Auto) Swain # Baso # Seg Neutrophils % Seg Neuts % (Manual) Lymphocytes % (Manual) Monocytes % (Manual) Seg Neutrophils # Seg Neutrophils # Man Lymphocytes # (Manual) Monocytes # (Manual) Eosinophils # (Manual) Basophils # (Manual) PT INR APTT ABG pH ABG pO2 ABG HCO3 ABG O2 Saturation ABG Base Excess ABG Hemoglobin Oxyhemoglobin Sodium Potassium Chloride Carbon Dioxide BUN Creatinine Glucose POC Glucose 136 H 109 H 111 H Lactic Acid Calcium Ionized Calcium Phosphorus Magnesium Total Bilirubin AST ALT Alkaline Phosphatase Ammonia Total Creatine Kinase CK-MB (CK-2) CK-MB (CK-2) Rel Index Total Protein Albumin Urine WBC (Auto) Vancomycin Trough Salicylates Acetaminophen Plasma/Serum Alcohol Crossmatch 01/15/20 01/15/20 01/16/20 12:34 23:25 05:06 WBC RBC Hgb Hct MCH RDW Plt Count Lymph % (Auto) Swain % (Auto) Swain # Baso # Seg Neutrophils % Seg Neuts % (Manual) Lymphocytes % (Manual) Monocytes % (Manual) Seg Neutrophils # Seg Neutrophils # Man Lymphocytes # (Manual) Monocytes # (Manual) Eosinophils # (Manual) Basophils # (Manual) PT INR APTT ABG pH ABG pO2 ABG HCO3 ABG O2 Saturation ABG Base Excess ABG Hemoglobin Oxyhemoglobin Sodium Potassium Chloride Carbon Dioxide BUN Creatinine Glucose POC Glucose 131 H 120 H 121 H Lactic Acid Calcium Ionized Calcium Phosphorus Magnesium Total Bilirubin AST ALT Alkaline Phosphatase Ammonia Total Creatine Kinase CK-MB (CK-2) CK-MB (CK-2) Rel Index Total Protein Albumin Urine WBC (Auto) Vancomycin Trough Salicylates Acetaminophen Plasma/Serum Alcohol Crossmatch 01/16/20 01/16/20 01/17/20 12:15 23:46 05:32 WBC 13.6 H RBC 3.27 L Hgb 9.3 L Hct 28.5 L MCH RDW 17.0 H Plt Count 490 H Lymph % (Auto) 13.1 L Swain % (Auto) Swain # 1.0 H Baso # Seg Neutrophils % 77.5 H Seg Neuts % (Manual) Lymphocytes % (Manual) Monocytes % (Manual) Seg Neutrophils # 10.5 H Seg Neutrophils # Man Lymphocytes # (Manual) Monocytes # (Manual) Eosinophils # (Manual) Basophils # (Manual) PT INR APTT ABG pH ABG pO2 ABG HCO3 ABG O2 Saturation ABG Base Excess ABG Hemoglobin Oxyhemoglobin Sodium Potassium Chloride Carbon Dioxide BUN Creatinine Glucose POC Glucose 152 H 107 H Lactic Acid Calcium Ionized Calcium Phosphorus Magnesium Total Bilirubin AST ALT Alkaline Phosphatase Ammonia Total Creatine Kinase CK-MB (CK-2) CK-MB (CK-2) Rel Index Total Protein Albumin Urine WBC (Auto) Vancomycin Trough Salicylates Acetaminophen Plasma/Serum Alcohol Crossmatch 01/17/20 01/17/20 01/17/20 06:47 12:16 17:21 WBC RBC Hgb Hct MCH RDW Plt Count Lymph % (Auto) Swain % (Auto) Swain # Baso # Seg Neutrophils % Seg Neuts % (Manual) Lymphocytes % (Manual) Monocytes % (Manual) Seg Neutrophils # Seg Neutrophils # Man Lymphocytes # (Manual) Monocytes # (Manual) Eosinophils # (Manual) Basophils # (Manual) PT INR APTT ABG pH ABG pO2 ABG HCO3 ABG O2 Saturation ABG Base Excess ABG Hemoglobin Oxyhemoglobin Sodium Potassium Chloride Carbon Dioxide BUN Creatinine Glucose POC Glucose 112 H 145 H 150 H Lactic Acid Calcium Ionized Calcium Phosphorus Magnesium Total Bilirubin AST ALT Alkaline Phosphatase Ammonia Total Creatine Kinase CK-MB (CK-2) CK-MB (CK-2) Rel Index Total Protein Albumin Urine WBC (Auto) Vancomycin Trough Salicylates Acetaminophen Plasma/Serum Alcohol Crossmatch 01/17/20 01/18/20 01/18/20 23:34 05:47 12:43 WBC RBC Hgb Hct MCH RDW Plt Count Lymph % (Auto) Swain % (Auto) Swain # Baso # Seg Neutrophils % Seg Neuts % (Manual) Lymphocytes % (Manual) Monocytes % (Manual) Seg Neutrophils # Seg Neutrophils # Man Lymphocytes # (Manual) Monocytes # (Manual) Eosinophils # (Manual) Basophils # (Manual) PT INR APTT ABG pH ABG pO2 ABG HCO3 ABG O2 Saturation ABG Base Excess ABG Hemoglobin Oxyhemoglobin Sodium Potassium Chloride Carbon Dioxide BUN Creatinine Glucose POC Glucose 160 H 130 H 124 H Lactic Acid Calcium Ionized Calcium Phosphorus Magnesium Total Bilirubin AST ALT Alkaline Phosphatase Ammonia Total Creatine Kinase CK-MB (CK-2) CK-MB (CK-2) Rel Index Total Protein Albumin Urine WBC (Auto) Vancomycin Trough Salicylates Acetaminophen Plasma/Serum Alcohol Crossmatch 01/18/20 01/19/2020 18:26 00:14 06:24 WBC RBC Hgb Hct MCH RDW Plt Count Lymph % (Auto) Swain % (Auto) Swain # Baso # Seg Neutrophils % Seg Neuts % (Manual) Lymphocytes % (Manual) Monocytes % (Manual) Seg Neutrophils # Seg Neutrophils # Man Lymphocytes # (Manual) Monocytes # (Manual) Eosinophils # (Manual) Basophils # (Manual) PT INR APTT ABG pH ABG pO2 ABG HCO3 ABG O2 Saturation ABG Base Excess ABG Hemoglobin Oxyhemoglobin Sodium Potassium Chloride Carbon Dioxide BUN Creatinine Glucose POC Glucose 119 H 114 H 144 H Lactic Acid Calcium Ionized Calcium Phosphorus Magnesium Total Bilirubin AST ALT Alkaline Phosphatase Ammonia Total Creatine Kinase CK-MB (CK-2) CK-MB (CK-2) Rel Index Total Protein Albumin Urine WBC (Auto) Vancomycin Trough Salicylates Acetaminophen Plasma/Serum Alcohol Crossmatch 01/19/20 01/19/20 01/20/20 12:24 17:50 12:06 WBC RBC Hgb Hct MCH RDW Plt Count Lymph % (Auto) Swain % (Auto) Swain # Baso # Seg Neutrophils % Seg Neuts % (Manual) Lymphocytes % (Manual) Monocytes % (Manual) Seg Neutrophils # Seg Neutrophils # Man Lymphocytes # (Manual) Monocytes # (Manual) Eosinophils # (Manual) Basophils # (Manual) PT INR APTT ABG pH ABG pO2 ABG HCO3 ABG O2 Saturation ABG Base Excess ABG Hemoglobin Oxyhemoglobin Sodium Potassium Chloride Carbon Dioxide BUN Creatinine Glucose POC Glucose 132 H 144 H 135 H Lactic Acid Calcium Ionized Calcium Phosphorus Magnesium Total Bilirubin AST ALT Alkaline Phosphatase Ammonia Total Creatine Kinase CK-MB (CK-2) CK-MB (CK-2) Rel Index Total Protein Albumin Urine WBC (Auto) Vancomycin Trough Salicylates Acetaminophen Plasma/Serum Alcohol Crossmatch 01/21/20 01/21/20 01/21/20 05:46 13:02 23:49 WBC RBC Hgb Hct MCH RDW Plt Count Lymph % (Auto) Swain % (Auto) Swain # Baso # Seg Neutrophils % Seg Neuts % (Manual) Lymphocytes % (Manual) Monocytes % (Manual) Seg Neutrophils # Seg Neutrophils # Man Lymphocytes # (Manual) Monocytes # (Manual) Eosinophils # (Manual) Basophils # (Manual) PT INR APTT ABG pH ABG pO2 ABG HCO3 ABG O2 Saturation ABG Base Excess ABG Hemoglobin Oxyhemoglobin Sodium Potassium Chloride Carbon Dioxide BUN Creatinine Glucose POC Glucose 114 H 136 H 120 H Lactic Acid Calcium Ionized Calcium Phosphorus Magnesium Total Bilirubin AST ALT Alkaline Phosphatase Ammonia Total Creatine Kinase CK-MB (CK-2) CK-MB (CK-2) Rel Index Total Protein Albumin Urine WBC (Auto) Vancomycin Trough Salicylates Acetaminophen Plasma/Serum Alcohol Crossmatch 01/22/20 01/22/20 01/22/20 05:41 11:44 16:31 WBC RBC Hgb Hct MCH RDW Plt Count Lymph % (Auto) Swain % (Auto) Swain # Baso # Seg Neutrophils % Seg Neuts % (Manual) Lymphocytes % (Manual) Monocytes % (Manual) Seg Neutrophils # Seg Neutrophils # Man Lymphocytes # (Manual) Monocytes # (Manual) Eosinophils # (Manual) Basophils # (Manual) PT INR APTT ABG pH ABG pO2 ABG HCO3 ABG O2 Saturation ABG Base Excess ABG Hemoglobin Oxyhemoglobin Sodium Potassium Chloride Carbon Dioxide BUN Creatinine Glucose POC Glucose 124 H 173 H 111 H Lactic Acid Calcium Ionized Calcium Phosphorus Magnesium Total Bilirubin AST ALT Alkaline Phosphatase Ammonia Total Creatine Kinase CK-MB (CK-2) CK-MB (CK-2) Rel Index Total Protein Albumin Urine WBC (Auto) Vancomycin Trough Salicylates Acetaminophen Plasma/Serum Alcohol Crossmatch 01/22/20 01/23/20 01/23/20 23:25 05:15 12:15 WBC RBC Hgb Hct MCH RDW Plt Count Lymph % (Auto) Swain % (Auto) Swain # Baso # Seg Neutrophils % Seg Neuts % (Manual) Lymphocytes % (Manual) Monocytes % (Manual) Seg Neutrophils # Seg Neutrophils # Man Lymphocytes # (Manual) Monocytes # (Manual) Eosinophils # (Manual) Basophils # (Manual) PT INR APTT ABG pH ABG pO2 ABG HCO3 ABG O2 Saturation ABG Base Excess ABG Hemoglobin Oxyhemoglobin Sodium Potassium Chloride Carbon Dioxide BUN Creatinine Glucose POC Glucose 134 H 117 H 129 H Lactic Acid Calcium Ionized Calcium Phosphorus Magnesium Total Bilirubin AST ALT Alkaline Phosphatase Ammonia Total Creatine Kinase CK-MB (CK-2) CK-MB (CK-2) Rel Index Total Protein Albumin Urine WBC (Auto) Vancomycin Trough Salicylates Acetaminophen Plasma/Serum Alcohol Crossmatch 01/23/20 01/23/20 01/23/20 16:58 21:17 23:47 WBC RBC Hgb Hct MCH RDW Plt Count Lymph % (Auto) Swain % (Auto) Swain # Baso # Seg Neutrophils % Seg Neuts % (Manual) Lymphocytes % (Manual) Monocytes % (Manual) Seg Neutrophils # Seg Neutrophils # Man Lymphocytes # (Manual) Monocytes # (Manual) Eosinophils # (Manual) Basophils # (Manual) PT INR APTT ABG pH ABG pO2 ABG HCO3 ABG O2 Saturation ABG Base Excess ABG Hemoglobin Oxyhemoglobin Sodium Potassium Chloride Carbon Dioxide BUN Creatinine Glucose POC Glucose 156 H 185 H 156 H Lactic Acid Calcium Ionized Calcium Phosphorus Magnesium Total Bilirubin AST ALT Alkaline Phosphatase Ammonia Total Creatine Kinase CK-MB (CK-2) CK-MB (CK-2) Rel Index Total Protein Albumin Urine WBC (Auto) Vancomycin Trough Salicylates Acetaminophen Plasma/Serum Alcohol Crossmatch 01/24/20 01/24/20 01/24/20 04:47 04:47 05:59 WBC 17.8 H RBC 3.60 L Hgb Hct MCH RDW 16.2 H Plt Count 688 H Lymph % (Auto) 11.8 L Swain % (Auto) 7.5 H Swain # 1.3 H Baso # Seg Neutrophils % 79.9 H Seg Neuts % (Manual) Lymphocytes % (Manual) Monocytes % (Manual) Seg Neutrophils # 14.2 H Seg Neutrophils # Man Lymphocytes # (Manual) Monocytes # (Manual) Eosinophils # (Manual) Basophils # (Manual) PT INR APTT ABG pH ABG pO2 ABG HCO3 ABG O2 Saturation ABG Base Excess ABG Hemoglobin Oxyhemoglobin Sodium 131 L Potassium Chloride 91.2 L Carbon Dioxide BUN 22 H Creatinine 0.3 L Glucose 123 H POC Glucose 147 H Lactic Acid Calcium 10.9 H Ionized Calcium Phosphorus Magnesium Total Bilirubin AST ALT Alkaline Phosphatase Ammonia Total Creatine Kinase CK-MB (CK-2) CK-MB (CK-2) Rel Index Total Protein Albumin Urine WBC (Auto) Vancomycin Trough Salicylates Acetaminophen Plasma/Serum Alcohol Crossmatch 01/24/20 01/24/20 01/25/20 11:47 16:45 00:18 WBC RBC Hgb Hct MCH RDW Plt Count Lymph % (Auto) Swain % (Auto) Swain # Baso # Seg Neutrophils % Seg Neuts % (Manual) Lymphocytes % (Manual) Monocytes % (Manual) Seg Neutrophils # Seg Neutrophils # Man Lymphocytes # (Manual) Monocytes # (Manual) Eosinophils # (Manual) Basophils # (Manual) PT INR APTT ABG pH ABG pO2 ABG HCO3 ABG O2 Saturation ABG Base Excess ABG Hemoglobin Oxyhemoglobin Sodium Potassium Chloride Carbon Dioxide BUN Creatinine Glucose POC Glucose 114 H 108 H 119 H Lactic Acid Calcium Ionized Calcium Phosphorus Magnesium Total Bilirubin AST ALT Alkaline Phosphatase Ammonia Total Creatine Kinase CK-MB (CK-2) CK-MB (CK-2) Rel Index Total Protein Albumin Urine WBC (Auto) Vancomycin Trough Salicylates Acetaminophen Plasma/Serum Alcohol Crossmatch 01/25/20 01/25/20 07:18 11:58 WBC RBC Hgb Hct MCH RDW Plt Count Lymph % (Auto) Swain % (Auto) Swain # Baso # Seg Neutrophils % Seg Neuts % (Manual) Lymphocytes % (Manual) Monocytes % (Manual) Seg Neutrophils # Seg Neutrophils # Man Lymphocytes # (Manual) Monocytes # (Manual) Eosinophils # (Manual) Basophils # (Manual) PT INR APTT ABG pH ABG pO2 ABG HCO3 ABG O2 Saturation ABG Base Excess ABG Hemoglobin Oxyhemoglobin Sodium Potassium Chloride Carbon Dioxide BUN Creatinine Glucose POC Glucose 136 H 136 H Lactic Acid Calcium Ionized Calcium Phosphorus Magnesium Total Bilirubin AST ALT Alkaline Phosphatase Ammonia Total Creatine Kinase CK-MB (CK-2) CK-MB (CK-2) Rel Index Total Protein Albumin Urine WBC (Auto) Vancomycin Trough Salicylates Acetaminophen Plasma/Serum Alcohol Crossmatch Allied health notes reviewed: nursing
--- NOTE | 2020-01-25 13:32 | Progress Note ---
Assessment and Plan Assessment and plan: cv Patient assessment and monitoring of vital signs [v]c Documentation [v] Medication orders and management - Patient Problems (1) Seizure disorder Current Visit: Yes Status: Acute Plan to address problem: No focal seizure disorder continue Keppra. Continue Keppra no new changes in management. (2) Alcohol abuse Current Visit: Yes Status: Acute Plan to address problem: History of alcohol abuse. Patient does not have delirium tremors. Requires restraints. (3) Cardiac arrest with successful resuscitation Current Visit: Yes Status: Acute Plan to address problem: Status post cardiorespiratory arrest. . Patient had intact corneal and cough reflex and withdrew lower extremities from pain. Unlikely however any meaningful recovery after extubation. Improved responsiveness still has signifi cant changes consistent with anoxia. No new changes. Unable to get into skilled nurse facility secondary to payer source. (4) Elevated LFTs Current Visit: Yes Status: Resolved Plan to address problem: LFTs not obtained on her last blood work. Obtain LFTs for Tuesday. Likely would not make and change any outcome with patient's prognosis. (5) UTI (urinary tract infection) Current Visit: Yes Status: Acute Plan to address problem: Continue antibiotics Rocephin completed yesterday.. No growth. Antibiotics discontinued. Medically stable. No evidence of fever. (6) HTN (hypertension) Current Visit: No Status: Acute Plan to address problem: Patient continues to have optimal control blood pressure. (7) Alcohol abuse Current Visit: Yes Status: Acute Plan to address problem: Patient off CIWA protocol. Hyperammonia level resolved. Was secondary to EtOH abuse. (8) Acute respiratory failure Current Visit: Yes Status: Acute Plan to address problem: Patient status post intubation PEG tube. Chest clear negative for pulmonary embolism. Awaiting placement. History Interval history: Patient 54-year-old with history of hypertension EtOH abuse tobacco abuse depression originally presented with cardiorespiratory arrest. Patient was found to have anoxic brain injury. PEG tube placement. Patient is still attempts to follow commands. Remains confused. Will tracking with eyes.. No new events overnight. Family member unable to take patient home at this time secondary to the amount of care she may need. Currently has no payment options for group home facility. Hospitalist Physical - Constitutional Vitals: Temp Pulse Resp BP Pulse Ox 98.6 F 114 H 18 116/75 96 01/25/20 12:24 01/25/20 12:24 01/25/20 12:24 01/25/20 12:24 01/25/20 12:24 General appearance: Present: no acute distress, cachectic, disheveled, other (Tracheostomy on T-piece) - EENT Eyes: Present: PERRL, EOM intact ENT: clear oral mucosa, poor dentition - Respiratory Respiratory: bilateral: CTA (Poor inspiratory effort) - Cardiovascular Rhythm: regular - Extremities Extremities: no ischemia, pulses intact, pulses symmetrical Peripheral Pulses: within normal limits - Abdominal General gastrointestinal: soft, non-tender, other (Slightly distended hypoactive bowel sounds.) - Integumentary Integumentary: Present: clear, warm, dry - Neurologic Neurologic: other (Confused remains encephalopathic.) Results - Labs CBC & Chem 7: 01/24/20 04:47 01/24/20 04:47 Labs: Laboratory Last Values WBC 17.8 K/mm3 (4.5-11.0) H 01/24/20 04:47 RBC 3.60 M/mm3 (3.65-5.03) L 01/24/20 04:47 Hgb 10.1 gm/dl (10.1-14.3) 01/24/20 04:47 Hct 30.4 % (30.3-42.9) 01/24/20 04:47 MCV 85 fl (79-97) 01/24/20 04:47 MCH 28 pg (28-32) 01/24/20 04:47 MCHC 33 % (30-34) 01/24/20 04:47 RDW 16.2 % (13.2-15.2) H 01/24/20 04:47 Plt Count 688 K/mm3 (140-440) H 01/24/20 04:47 Lymph % (Auto) 11.8 % (13.4-35.0) L 01/24/20 04:47 [place] % (Auto) 7.5 % (0.0-7.3) H 01/24/20 04:47 Eos % (Auto) 0.4 % (0.0-4.3) 01/24/20 04:47 Baso % (Auto) 0.4 % (0.0-1.8) 01/24/20 04:47 Lymph # 2.1 K/mm3 (1.2-5.4) 01/24/20 04:47 [place] # 1.3 K/mm3 (0.0-0.8) H 01/24/20 04:47 Eos # 0.1 K/mm3 (0.0-0.4) 01/24/20 04:47 Baso # 0.1 K/mm3 (0.0-0.1) 01/24/20 04:47 Add Manual Diff Complete 12/25/19 03:47 Total Counted 200 12/25/19 03:47 Seg Neutrophils % 79.9 % (40.0-70.0) H 01/24/20 04:47 Seg Neuts % (Manual) 97.5 % (40.0-70.0) H 12/25/19 03:47 Band Neutrophils % 0 % 12/25/19 03:47 Lymphocytes % (Manual) 1.0 % (13.4-35.0) L 12/25/19 03:47 Reactive Lymphs % (Man) 0 % 12/25/19 03:47 Monocytes % (Manual) 1.5 % (0.0-7.3) 12/25/19 03:47 Eosinophils % (Manual) 0 % (0.0-4.3) 12/25/19 03:47 Basophils % (Manual) 0 % (0.0-1.8) 12/25/19 03:47 Metamyelocytes % 0 % 12/25/19 03:47 Myelocytes % 0 % 12/25/19 03:47 Promyelocytes % 0 % 12/25/19 03:47 Blast Cells % 0 % 12/25/19 03:47 Nucleated RBC % Not Reportable 12/25/19 03:47 Seg Neutrophils # 14.2 K/mm3 (1.8-7.7) H 01/24/20 04:47 Seg Neutrophils # Man 35.3 K/mm3 (1.8-7.7) H 12/25/19 03:47 Band Neutrophils # 0.0 K/mm3 12/25/19 03:47 Lymphocytes # (Manual) 0.4 K/mm3 (1.2-5.4) L 12/25/19 03:47 Abs React Lymphs (Man) 0.0 K/mm3 12/25/19 03:47 Monocytes # (Manual) 0.5 K/mm3 (0.0-0.8) 12/25/19 03:47 Eosinophils # (Manual) 0.0 K/mm3 (0.0-0.4) 12/25/19 03:47 Basophils # (Manual) 0.0 K/mm3 (0.0-0.1) 12/25/19 03:47 Metamyelocytes # 0.0 K/mm3 12/25/19 03:47 Myelocytes # 0.0 K/mm3 12/25/19 03:47 Promyelocytes # 0.0 K/mm3 12/25/19 03:47 Blast Cells # 0.0 K/mm3 12/25/19 03:47 Pathologist Review 12/13/19 07:48 WBC Morphology Not Reportable 12/25/19 03:47 Hypersegmented Neuts Not Reportable 12/25/19 03:47 Hyposegmented Neuts Not Reportable 12/25/19 03:47 Hypogranular Neuts Not Reportable 12/25/19 03:47 Smudge Cells Not Reportable 12/25/19 03:47 Toxic Granulation Not Reportable 12/25/19 03:47 Toxic Vacuolation Not Reportable 12/25/19 03:47 Dohle Bodies Not Reportable 12/25/19 03:47 Pelger-Huet Anomaly Not Reportable 12/25/19 03:47 Dominique Rods Not Reportable 12/25/19 03:47 Platelet Estimate Consistent w auto 12/25/19 03:47 Clumped Platelets Not Reportable 12/25/19 03:47 Plt Clumps, EDTA Not Reportable 12/25/19 03:47 Large Platelets Not Reportable 12/25/19 03:47 Giant Platelets Not Reportable 12/25/19 03:47 Platelet Satelliting Not Reportable 12/25/19 03:47 Plt Morphology Comment Not Reportable 12/25/19 03:47 RBC Morphology Not Reportable 12/25/19 03:47 Dimorphic RBCs Not Reportable 12/25/19 03:47 Polychromasia Not Reportable 12/25/19 03:47 Hypochromasia Not Reportable 12/25/19 03:47 Poikilocytosis Not Reportable 12/25/19 03:47 Anisocytosis 1+ 12/25/19 03:47 Microcytosis Not Reportable 12/25/19 03:47 Macrocytosis Not Reportable 12/25/19 03:47 Spherocytes Not Reportable 12/25/19 03:47 Pappenheimer Bodies Not Reportable 12/25/19 03:47 Sickle Cells Not Reportable 12/25/19 03:47 Target Cells Not Reportable 12/25/19 03:47 Tear Drop Cells Not Reportable 12/25/19 03:47 Ovalocytes Not Reportable 12/25/19 03:47 Helmet Cells Not Reportable 12/25/19 03:47 Frias-Jaguas Bodies Not Reportable 12/25/19 03:47 Myrtle Rings Not Reportable 12/25/19 03:47 Jamshid Cells Not Reportable 12/25/19 03:47 Bite Cells Not Reportable 12/25/19 03:47 Crenated Cell Not Reportable 12/25/19 03:47 Elliptocytes Not Reportable 12/25/19 03:47 Acanthocytes (Spur) Not Reportable 12/25/19 03:47 Rouleaux Not Reportable 12/25/19 03:47 Hemoglobin C Crystals Not Reportable 12/25/19 03:47 Schistocytes Not Reportable 12/25/19 03:47 Malaria parasites Not Reportable 12/25/19 03:47 Gregg Bodies Not Reportable 12/25/19 03:47 Hem Pathologist Commnt No 12/25/19 03:47 PT 17.0 Sec. (12.2-14.9) H 11/23/19 03:47 INR 1.36 (0.87-1.13) H 11/23/19 03:47 APTT 128.2 Sec. (24.2-36.6) H* 11/23/19 03:47 Heparin Anti-Xa Level 0.31 U.I./ml (0.3-0.7) 11/23/19 09:03 ABG pH 7.429 pH Units (7.350-7.450) 01/09/20 08:51 ABG pCO2 39.1 mm Hg 01/09/20 08:51 ABG pO2 94.3 mm Hg (80.0-90.0) H 01/09/20 08:51 ABG HCO3 25.3 mmol/L (20.0-26.0) 01/09/20 08:51 ABG O2 Saturation 97.4 % (95.0-99.0) 01/09/20 08:51 ABG O2 Content 12.9 (0.0-44) 01/09/20 08:51 ABG Base Excess 1.0 mmol/L (-2.0-3.0) 01/09/20 08:51 ABG Hemoglobin 9.5 gm/dl (12.0-16.0) L 01/09/20 08:51 ABG Carboxyhemoglobin 1.3 % (0.0-5.0) 01/09/20 08:51 ABG Methemoglobin 0.4 % (0.0-1.5) 01/09/20 08:51 Oxyhemoglobin 95.7 % (95.0-99.0) 01/09/20 08:51 FiO2 35 % 01/09/20 08:51 Sodium 131 mmol/L (137-145) L 01/24/20 04:47 Potassium 4.4 mmol/L (3.6-5.0) 01/24/20 04:47 Chloride 91.2 mmol/L (98-107) L 01/24/20 04:47 Carbon Dioxide 27 mmol/L (22-30) 01/24/20 04:47 Anion Gap 17 mmol/L 01/24/20 04:47 BUN 22 mg/dL (7-17) H 01/24/20 04:47 Creatinine 0.3 mg/dL (0.7-1.2) L 01/24/20 04:47 Estimated GFR > 60 ml/min 01/24/20 04:47 BUN/Creatinine Ratio 73 % 01/24/20 04:47 Glucose 123 mg/dL (65-100) H 01/24/20 04:47 POC Glucose 136 (70-105) H 01/25/20 11:58 Lactic Acid 1.80 mmol/L (0.7-2.0) 11/25/19 05:05 Calcium 10.9 mg/dL (8.4-10.2) H 01/24/20 04:47 Ionized Calcium 4.5 mg/dL (4.8-5.6) L 11/23/19 06:32 Phosphorus 4.20 mg/dL (2.5-4.5) D 11/28/19 08:59 Magnesium 2.30 mg/dL (1.7-2.3) 11/29/19 13:41 Total Bilirubin 0.40 mg/dL (0.1-1.2) 12/13/19 07:48 AST 27 units/L (5-40) 12/13/19 07:48 ALT 26 units/L (7-56) 12/13/19 07:48 Alkaline Phosphatase 316 units/L (35-129) H 12/13/19 07:48 Ammonia 42.0 umol/L (25-60) 11/29/19 13:41 Total Creatine Kinase 139 units/L (30-135) H 11/22/19 23:27 CK-MB (CK-2) 8.3 ng/mL (0.0-4.0) H 11/22/19 23:27 CK-MB (CK-2) Rel Index 5.9 (0-4) H 11/22/19 23:27 Troponin T < 0.010 ng/mL (0.00-0.029) 11/22/19 23:27 Total Protein 6.8 g/dL (6.3-8.2) 12/13/19 07:48 Albumin 2.4 g/dL (3.9-5) L 12/13/19 07:48 Albumin/Globulin Ratio 0.5 % 12/13/19 07:48 Lipase 18 units/L (13-60) 11/23/19 00:34 Procalcitonin 1.09 ng/mL (<0.15) 11/23/19 04:53 Urine Color Yellow (Yellow) 12/16/19 Unknown Urine Turbidity Slightly-cloudy (Clear) 12/16/19 Unknown Urine pH 5.0 (5.0-7.0) 12/16/19 Unknown Ur Specific [place] 1.018 (1.003-1.030) 12/16/19 Unknown Urine Protein 30 mg/dl mg/dL (Negative) 12/16/19 Unknown Urine Glucose (UA) Neg mg/dL (Negative) 12/16/19 Unknown Urine Ketones Neg mg/dL (Negative) 12/16/19 Unknown Urine Blood Sm (Negative) 12/16/19 Unknown Urine Nitrite Neg (Negative) 12/16/19 Unknown Urine Bilirubin Neg (Negative) 12/16/19 Unknown Urine Urobilinogen < 2.0 mg/dL (<2.0) 12/16/19 Unknown Ur Leukocyte Esterase Neg (Negative) 12/16/19 Unknown Urine WBC (Auto) 6.0 /HPF (0.0-6.0) 12/16/19 Unknown Urine RBC (Auto) 9.0 /HPF (0.0-6.0) 12/16/19 Unknown U Epithel Cells (Auto) < 1.0 /HPF (0-13.0) 12/16/19 Unknown Urine Bacteria (Auto) 2+ /HPF (Negative) 11/22/19 23:17 Hyaline Casts 3 /LPF 12/16/19 Unknown Granular Casts 3 /LPF 12/16/19 Unknown Urine Mucus Few /HPF 12/16/19 Unknown Vancomycin Trough 33.8 ug/mL (5.0-20.0) H 12/21/19 08:56 Random Vancomycin 16.2 ug/mL (0-40.0) 12/24/19 04:31 Salicylates < 0.3 mg/dL (2.8-20.0) L 11/22/19 23:27 Urine Opiates Screen Presumptive negative 11/22/19 23:17 Urine Methadone Screen Presumptive negative 11/22/19 23:17 Acetaminophen < 5.0 ug/mL (10.0-30.0) L 11/22/19 23:27 Ur Barbiturates Screen Presumptive negative 11/22/19 23:17 Ur Phencyclidine Scrn Presumptive negative 11/22/19 23:17 Ur Amphetamines Screen Presumptive negative 11/22/19 23:17 U Benzodiazepines Scrn Presumptive negative 11/22/19 23:17 Urine Cocaine Screen Presumptive negative 11/22/19 23:17 U Marijuana (THC) Screen Presumptive negative 11/22/19 23:17 Drugs of Abuse Note Disclamer 11/22/19 23:17 Plasma/Serum Alcohol 0.08 % (0-0.07) H 11/22/19 23:27 Hepatitis A IgM Ab Non-reactive (NonReactive) 11/23/19 01:19 Hep Bs Antigen Non-reactive (Negative) 11/23/19 01:19 Hep B Core IgM Ab Non-reactive (NonReactive) 11/23/19 01:19 Hepatitis C Antibody Non-reactive (NonReactive) 11/23/19 01:19 Blood Type O POSITIVE 12/21/19 14:54 Antibody Screen Negative 12/21/19 14:54 Crossmatch See Detail 12/21/19 14:54 - Diagnostic Impressions Diagnostic Impressions: Echocardiogram 11/23/19 03:58 Transthoracic Echocardiogram Indication: Cardiac arrest BP: 131/89 HR: 115 Conclusions *The study quality is technically difficult. *Global left ventricular wall motion and contractility are within normal limits. *The estimated ejection fraction is 55-60%. *Abnormal left ventricular diastolic filling is observed, consistent with impaired relaxation. *There is no pericardial effusion. Findings Procedure Info: The study quality is technically difficult. The study was technically limited due to the patient's inability to lay in the left lateral decubitus position. Left Ventricle: The left ventricular chamber size is normal. There is no left ventricular hypertrophy. Global left ventricular wall motion and contractility are within normal limits. Global left ventricular systolic function is normal. The estimated ejection fraction is 55-60%. Abnormal left ventricular diastolic filling is observed, consistent with impaired relaxation. Left Atrium: The left atrial chamber size is normal. Aortic Valve: The aortic valve leaflets are mildly thickened. Mitral Valve: The mitral valve leaflets are mildly thickened. There is no evidence of mitral regurgitation. Tricuspid Valve: The tricuspid valve leaflets are normal. There is trace tricuspid regurgitation. The right ventricular systolic pressure is calculated at 33 mmHg. Pulmonic Valve: The pulmonic valve appears normal. Pericardium: The pericardium appears normal. There is no pericardial effusion. Aorta: The aorta appears normal. Venous: The inferior vena cava appears normal in size. Measurements Chambers 2D Name Value Normal Range IVSd (2D) 0.94 cm (0.6 - 1.1) LVPWd (2D) 0.81 cm (0.6 - 1.1) LVIDd (2D) 3.6 cm (3.7 - 5.6) LVIDs (2D) 2.27 cm (2 - 3.8) LV FS (2D) 36.93 % - EF Teichholz (2D) 67.76 % - Ao root diameter (2D) 3.03 cm (2 - 3.7) Volumes/Mass Name Value Normal Range LA ESV SP 4CH (A/L) 16.89 ml - LA ESV SP 4CH (MOD) 15.52 ml - Diastolic/Systolic Function Name Value Normal Range MV E-wave Vmax 0.55 m/sec - MV deceleration time 200.89 msec - MV A-wave Vmax 0.68 m/sec - MV E:A ratio 0.82 ratio - Aortic Valve Name Value Normal Range AV Vmax 1.1 m/sec - AV VTI 15.9 cm - AV peak gradient 4.86 mmHg - AV mean gradient 2.59 mmHg - LVOT diameter 2 cm - LVOT Vmax 1.03 m/sec - LVOT VTI 15.87 cm - LVOT peak gradient 4.24 mmHg - LVOT mean gradient 2.41 mmHg - SV LVOT 49.77 ml - JOSÉ MIGUEL (continuity Vmax) 2.93 cm2 - JOSÉ MIGUEL (continuity VTI) 3.13 cm2 - Tricuspid Valve Name Value Normal Range TR Vmax 2.74 m/sec - TR peak gradient 303 mmHg - RAP 3 mmHg - RVSP 33 mmHg - IVC diameter 1.77 cm (1.2 - 2.3) Pulmonic Valve/Qp:Qs Name Value Normal Range PV Vmax 0.77 m/sec - PV peak gradient 2.4 mmHg - PV acceleration time 114.18 msec - Echocardiogram Limited Views 12/17/19 14:53 Transthoracic Echocardiogram Indication: R/O Vegetations BP: 144/83 HR: 133 Conclusions *Global left ventricular systolic function is mildly decreased. *The estimated ejection fraction is 45-50%. *A trivial pericardial effusion is visualized. Findings Left Ventricle: The left ventricular chamber size is normal. Global left ventricular systolic function is mildly decreased. The estimated ejection fraction is 45-50%. Left Atrium: The left atrial chamber size is normal. Right Ventricle: The right ventricular cavity size is normal. Right Atrium: The right atrial cavity size is normal. Aortic Valve: The aortic valve is not well visualized. There is no evidence of aortic regurgitation. Mitral Valve: The mitral valve leaflets are mildly thickened. There is trace of mitral regurgitation. Tricuspid Valve: The tricuspid valve leaflets are mildly thickened. There is trace tricuspid regurgitation. The right ventricular systolic pressure is calculated at 29 mmHg. Pulmonic Valve: The pulmonic valve is not well visualized. There is no evidence of pulmonic regurgitation. Pericardium: A trivial pericardial effusion is visualized. Aorta: There is no dilatation of the ascending aorta. There is no dilatation of the aortic root. Venous: The inferior vena cava appears normal in size. There is a greater than 50% respiratory change in the inferior vena cava dimension. Measurements Chambers 2D Name Value Normal Range IVSd (2D) 0.83 cm (0.6 - 1.1) LVPWd (2D) 0.98 cm (0.6 - 1.1) LVIDd (2D) 3.71 cm (3.7 - 5.6) LVIDs (2D) 2.93 cm (2 - 3.8) LV FS (2D) 21.12 % - EF Teichholz (2D) 43.71 % - Ao root diameter (2D) 3.02 cm (2 - 3.7) Volumes/Mass Name Value Normal Range LA ESV SP 4CH (A/L) 36.8 ml - LA ESV SP 2CH (A/L) 45.89 ml - LA ESV BP (A/L) 42.35 ml - LA ESV BP (A/L) index 26.63 ml/m2 - LA ESV SP 4CH (MOD) 34.42 ml - LA ESV SP 2CH (MOD) 44.21 ml - LA ESV BP (MOD) 39.82 ml - LA ESV BP (MOD) index 25.05 ml/m2 - Aortic Valve Name Value Normal Range LVOT diameter 1.63 cm - Tricuspid Valve Name Value Normal Range TR Vmax 2.56 m/sec - TR peak gradient 26 mmHg - RAP 3 mmHg - RVSP 29 mmHg - IVC diameter 1.83 cm (1.2 - 2.3) Dela Cruz/IV: Voiding Method Incontinent IV Catheter Type [Forearm] Peripheral IV IV Catheter Type [Left Forearm INT / Saline Lock ] IV Catheter Type [Right Peripheral IV Antecubital] IV Catheter Type [Right Hand] Peripheral IV IV Catheter Type [Right Wrist] Peripheral IV IV Catheter Type [Left Wrist] Peripheral IV IV Catheter Type [Left Peripheral IV Antecubital] IV Catheter Type [Right INT / Saline Lock Forearm] IV Catheter Type [Left Hand] Peripheral IV Active Medications - Current Medications Current Medications: Generic Name Dose Route Start Last Admin Trade Name Freq PRN Reason Stop Dose Admin Acetaminophen 650 mg 12/06/19 10:25 01/19/20 00:30 Tylenol FEEDTUBE 650 mg Q6H PRN Administration TEMP >/=100.3 Acetylcysteine 200 mg 01/24/20 20:00 01/25/20 09:50 Mucomyst Inhalation INHALATION Not Given BIDRT LUCHO Lipase/Protease/Amylase 1 each 11/23/19 11:[address] 10,500 Unit FEEDTUBE PRN PRN Use w/ sod bicarb for FT Glycopyrrolate 2 mg 12/31/19 20:00 01/25/20 09:00 Robinul PO 2 mg TID LUCHO Administration Hydralazine HCl 10 mg 11/24/19 00:45 12/18/19 13:25 Apresoline IV 10 mg Q6H PRN Administration SBP > 160 Hydroxyzine Pamoate 25 mg 12/06/19 10:00 01/25/20 10:42 Vistaril PO 25 mg BID LUCHO Administration Lansoprazole 30 mg 11/27/19 10:00 01/25/20 10:43 Prevacid Solutab FEEDTUBE 30 mg QDAY LUCHO Administration Levalbuterol HCl 0.63 mg 01/24/20 14:00 01/25/20 03:10 Xopenex IH 0.63 mg Q6HRT LUCHO Administration Levetiracetam 500 mg 11/29/19 10:00 01/25/20 10:43 Keppra PO 500 mg BID LUCHO Administration Mirtazapine 30 mg 12/06/19 10:00 01/25/20 10:43 Remeron PO 30 mg DAILY LUCHO Administration Morphine Sulfate 2 mg 12/12/19 18:40 01/20/20 08:59 Morphine IV 2 mg Q4H PRN Administration Pain, Moderate (4-6) Ondansetron HCl 4 mg 12/10/19 07:53 01/06/20 10:53 Zofran IV 4 mg Q4H PRN Administration Nausea And Vomiting Quetiapine Fumarate 100 mg 01/09/20 21:41 01/24/20 22:40 Seroquel FEEDTUBE 100 mg QHS LUCHO Administration Sertraline HCl 25 mg 01/01/20 10:00 01/25/20 10:43 Zoloft PO 25 mg QDAY LUCHO Administration Simple Syrup 15 ml 11/23/19 11:50 Simple Syrup FEEDTUBE PRN PRN Hypoglycemia BG<70 Simple Syrup 30 ml 11/23/19 11:50 Simple Syrup FEEDTUBE PRN PRN Hypoglycemia Sodium Bicarbonate 325 mg 11/23/19 11:50 Sodium Bicarbonate FEEDTUBE PRN PRN For Clogged Feeding Tube Tamsulosin HCl 0.4 mg 12/14/19 13:00 01/25/20 10:43 Flomax PO 0.4 mg QDAY LUCHO Administration Nutrition/Malnutrition Assess - Dietary Evaluation Nutrition/Malnutrition Findings: Nutrition Notes Start: 11/23/19 11:29 Freq: Status: Active Protocol: Document 01/22/20 12:39 LM (Rec: 01/22/20 12:42 LM [id number]) Nutrition Notes Current Diagnosis Hypertension Other Pertinent Diagnosis Cardaic arrest, ETOH dependence, UTI Current Diet Jevity 1.2 at 55ml/hr Labs/Tests Reviewed Pertinent Medications Reviewed Height 5 ft 6 in Weight 54.1 kg [place] Body Weight (kg) 59.09 BMI 19.2 Weight change and time frame wt change noted Subjective/Other Information Jevity running at 55ml/hr. Pt tolerating TF. Percent of energy/protein needs met: 94%/100% Burn Absent Trauma Absent GI Symptoms None Current % PO Negligible Minimum of two criteria Yes Interpretation of Weight Loss (severe) >2% in 1 week Muscle Mass Mild Depletion (non-severe) #2 Nutrition Diagnosis Malnutrition Diagnosis Progress(for reassessment Continues documentation) #1 Nutrition Diagnosis Inadequate oral intake Diagnosis Progress(for reassessment Continues documentation) Is patient on ventilator? No Is Patient Ambulatory and/or Out of Bed No REE-([facility]-confined to bed) 1393.836 Kcal/Kg value to use for calculation 31 Approximate Energy Requirements Using 1677 kcal/Kg Calculation Used for Recommendations [facility] Additional Notes Protein: 64-80g (1.2-1.5g/kg) Fluid: 1 ml/kcal Nutrition Intervention Change Diet Order: Continue TF Nutrition Support: Jevity 1.2 at 55ml/hr Flush 50ml q6h for hyponatremia Flush 90ml q4h once resolved Kcal 1,584 Protein (gm) 73 Fluid (mL) 1,065 Goal #1 TF tolerance Goal #2 Meet at least 80% of energy and protein needs via TF Anticipated Discharge Needs: TF Follow-Up By: 01/29/20 Additional Comments F/U for TF tolerance
[2020-01-25] MEDS: QUEtiapine 100 MG TAB FEEDTUBE SCH (22:21)
[2020-01-26] MEDS: LEVALBUTEROL 0.63 MG/3 ML NEBU IH SCH ×4 (04:27→21:19)
[2020-01-26 06:24] LABS: Basophils # (Auto) 0.1 K/mm3 (0.0-0.1); Eosinophils # (Auto) 0.1 K/mm3 (0.0-0.4); Eosinophils % (Auto) 0.9 % (0.0-4.3); Hemoglobin 10.4 gm/dl (10.1-14.3); Lymphocytes # (Auto) 1.9 K/mm3 (1.2-5.4); Lymphocytes % (Auto) 14.7 % (13.4-35.0); Mean Corpuscular HGB Conc 33 % (30-34); Mean Corpuscular Volume 87 fl (79-97); Monocytes # (Auto) 0.9 K/mm3 (0.0-0.8); Monocytes % (Auto) 7.2 % (0.0-7.3); Platelet Count 743 K/mm3 (140-440); Red Cell Distribution Width 16.4 % (13.2-15.2)
[2020-01-26 06:41] LABS: BUN/Creatinine Ratio 58; Blood Urea Nitrogen 23 mg/dL (7-17); Hemolysis Index 6
--- NOTE | 2020-01-26 09:16 | Progress Note ---
Assessment and Plan Assessment and plan: --Acute Respiratory failure Vent dependent s/p trach and PEG on 12/12 with mechanical ventilation, now on T- piece CTA was done and negative for PE, Echo quality is poor, showed diastolic dysfunction continue weaning as tolerated --Anoxic brain injury: suspected CT head: No acute abnormality. EEG ordered showed Generalized slowing. No seizures or epileptiform activity. Per neurology : Patient found to have intact corneal/VOR/cough reflexes, and is withdrawing lower extremities, given that patient had an out of hospital cardiac arrest, the time of which is uncertain, the likelihood of meaningful neurological recovery is somewhat low. -Patient now opening her eyes and able to follow minor command by nodding head --Anemia, microcytic - Status post 3 units PRBC transfusion, H&H low stable --Acute metabolic encephalopathy/toxic encephalopathy due to the above - cont supportive care --Hyperammonemia - likely from liver disease related to EtOH abuse - Patient had elevated ammonia level and treated with lactulose --Metabolic Acidosis -Alcohol ketoacidosis vs hypoprofusion -Continue to monitor --ELevated LFTs, stable now - due to ischemic hepatitis. --Leucocytosis with sepsis - Source MRSA bacteremia and MSSA pneumonia. UA showed pyuria. RUQ US showed no ascites. - Repeat TTE negative for vegetation. Completed 7 days of Ceftriaxone on 11/29/2019. -Treated with Abx vancomycin 1 gm IV q 12 hour total 2 week till 12/30/2019 --MSSA pneumonia: Status post vancomycin till 12/30/2019 --ALcohol USe Disorder - given ongoing Alcohol use almost daily, s/p IV Thiamine - monitor --Severe hypokalemia -Repleted --Seizure disorder: treat with Keppra --H. Influenzae, tracheobronchitis, treated with abx DNR CODE STATUS Disposition: prognosis guarded. Family okay for DNR, PT recommended subacute rehab, discharge pending on placement. Patient is stable for discharge Pending subacute rehab placement History Interval history: Patient seen and examined at the bedside today Patient is in isolation precautions Noncommunicative No new overnight events reported by the nursing staff Vital signs noted Hospitalist Physical - Constitutional Vitals: Temp Pulse Resp BP Pulse Ox 98.0 F 75 22 133/84 88 01/26/20 07:54 01/26/20 07:54 01/26/20 07:54 01/26/20 07:54 01/26/20 07:54 General appearance: Present: no acute distress, cachectic, disheveled, other (Tracheostomy on T-piece) - EENT Eyes: Present: PERRL, EOM intact - Neck Neck: Present: supple, normal ROM, other (Tracheostomy on T-piece) - Respiratory Respiratory effort: normal Respiratory: bilateral: diminished, rhonchi, negative: rales, wheezing - Cardiovascular Rhythm: regular Heart Sounds: Present: S1 & S2 (Tachycardia) - Extremities Extremities: no ischemia, No edema - Abdominal General gastrointestinal: soft, non-tender, non-distended, normal bowel sounds - Integumentary Integumentary: Present: clear, warm - Psychiatric Psychiatric: other (Noncommunicative) - Neurologic Neurologic: other (Noncommunicative, tracheostomy on T-piece) Results - Labs CBC & Chem 7: 01/26/20 05:59 01/26/20 05:59 Labs: Laboratory Last Values WBC 12.8 K/mm3 (4.5-11.0) H 01/26/20 05:59 RBC 3.70 M/mm3 (3.65-5.03) 01/26/20 05:59 Hgb 10.4 gm/dl (10.1-14.3) 01/26/20 05:59 Hct 32.0 % (30.3-42.9) 01/26/20 05:59 MCV 87 fl (79-97) 01/26/20 05:59 MCH 28 pg (28-32) 01/26/20 05:59 MCHC 33 % (30-34) 01/26/20 05:59 RDW 16.4 % (13.2-15.2) H 01/26/20 05:59 Plt Count 743 K/mm3 (140-440) H 01/26/20 05:59 Lymph % (Auto) 14.7 % (13.4-35.0) 01/26/20 05:59 [place] % (Auto) 7.2 % (0.0-7.3) 01/26/20 05:59 Eos % (Auto) 0.9 % (0.0-4.3) 01/26/20 05:59 Baso % (Auto) 1.0 % (0.0-1.8) 01/26/20 05:59 Lymph # 1.9 K/mm3 (1.2-5.4) 01/26/20 05:59 [place]anan # 0.9 K/mm3 (0.0-0.8) H 01/26/20 05:59 Eos # 0.1 K/mm3 (0.0-0.4) 01/26/20 05:59 Baso # 0.1 K/mm3 (0.0-0.1) 01/26/20 05:59 Add Manual Diff Complete 12/25/19 03:47 Total Counted 200 12/25/19 03:47 Seg Neutrophils % 76.2 % (40.0-70.0) H 01/26/20 05:59 Seg Neuts % (Manual) 97.5 % (40.0-70.0) H 12/25/19 03:47 Band Neutrophils % 0 % 12/25/19 03:47 Lymphocytes % (Manual) 1.0 % (13.4-35.0) L 12/25/19 03:47 Reactive Lymphs % (Man) 0 % 12/25/19 03:47 Monocytes % (Manual) 1.5 % (0.0-7.3) 12/25/19 03:47 Eosinophils % (Manual) 0 % (0.0-4.3) 12/25/19 03:47 Basophils % (Manual) 0 % (0.0-1.8) 12/25/19 03:47 Metamyelocytes % 0 % 12/25/19 03:47 Myelocytes % 0 % 12/25/19 03:47 Promyelocytes % 0 % 12/25/19 03:47 Blast Cells % 0 % 12/25/19 03:47 Nucleated RBC % Not Reportable 12/25/19 03:47 Seg Neutrophils # 9.8 K/mm3 (1.8-7.7) H 01/26/20 05:59 Seg Neutrophils # Man 35.3 K/mm3 (1.8-7.7) H 12/25/19 03:47 Band Neutrophils # 0.0 K/mm3 12/25/19 03:47 Lymphocytes # (Manual) 0.4 K/mm3 (1.2-5.4) L 12/25/19 03:47 Abs React Lymphs (Man) 0.0 K/mm3 12/25/19 03:47 Monocytes # (Manual) 0.5 K/mm3 (0.0-0.8) 12/25/19 03:47 Eosinophils # (Manual) 0.0 K/mm3 (0.0-0.4) 12/25/19 03:47 Basophils # (Manual) 0.0 K/mm3 (0.0-0.1) 12/25/19 03:47 Metamyelocytes # 0.0 K/mm3 12/25/19 03:47 Myelocytes # 0.0 K/mm3 12/25/19 03:47 Promyelocytes # 0.0 K/mm3 12/25/19 03:47 Blast Cells # 0.0 K/mm3 12/25/19 03:47 Pathologist Review 12/13/19 07:48 WBC Morphology Not Reportable 12/25/19 03:47 Hypersegmented Neuts Not Reportable 12/25/19 03:47 Hyposegmented Neuts Not Reportable 12/25/19 03:47 Hypogranular Neuts Not Reportable 12/25/19 03:47 Smudge Cells Not Reportable 12/25/19 03:47 Toxic Granulation Not Reportable 12/25/19 03:47 Toxic Vacuolation Not Reportable 12/25/19 03:47 Dohle Bodies Not Reportable 12/25/19 03:47 Pelger-Huet Anomaly Not Reportable 12/25/19 03:47 Dominique Rods Not Reportable 12/25/19 03:47 Platelet Estimate Consistent w auto 12/25/19 03:47 Clumped Platelets Not Reportable 12/25/19 03:47 Plt Clumps, EDTA Not Reportable 12/25/19 03:47 Large Platelets Not Reportable 12/25/19 03:47 Giant Platelets Not Reportable 12/25/19 03:47 Platelet Satelliting Not Reportable 12/25/19 03:47 Plt Morphology Comment Not Reportable 12/25/19 03:47 RBC Morphology Not Reportable 12/25/19 03:47 Dimorphic RBCs Not Reportable 12/25/19 03:47 Polychromasia Not Reportable 12/25/19 03:47 Hypochromasia Not Reportable 12/25/19 03:47 Poikilocytosis Not Reportable 12/25/19 03:47 Anisocytosis 1+ 12/25/19 03:47 Microcytosis Not Reportable 12/25/19 03:47 Macrocytosis Not Reportable 12/25/19 03:47 Spherocytes Not Reportable 12/25/19 03:47 Pappenheimer Bodies Not Reportable 12/25/19 03:47 Sickle Cells Not Reportable 12/25/19 03:47 Target Cells Not Reportable 12/25/19 03:47 Tear Drop Cells Not Reportable 12/25/19 03:47 Ovalocytes Not Reportable 12/25/19 03:47 Helmet Cells Not Reportable 12/25/19 03:47 [place] Bodies Not Reportable 12/25/19 03:47 [place] Rings Not Reportable 12/25/19 03:47 Jamshid Cells Not Reportable 12/25/19 03:47 Bite Cells Not Reportable 12/25/19 03:47 Crenated Cell Not Reportable 12/25/19 03:47 Elliptocytes Not Reportable 12/25/19 03:47 Acanthocytes (Spur) Not Reportable 12/25/19 03:47 Rouleaux Not Reportable 12/25/19 03:47 Hemoglobin C Crystals Not Reportable 12/25/19 03:47 Schistocytes Not Reportable 12/25/19 03:47 Malaria parasites Not Reportable 12/25/19 03:47 Gregg Bodies Not Reportable 12/25/19 03:47 Hem Pathologist Commnt No 12/25/19 03:47 PT 17.0 Sec. (12.2-14.9) H 11/23/19 03:47 INR 1.36 (0.87-1.13) H 11/23/19 03:47 APTT 128.2 Sec. (24.2-36.6) H* 11/23/19 03:47 Heparin Anti-Xa Level 0.31 U.I./ml (0.3-0.7) 11/23/19 09:03 ABG pH 7.429 pH Units (7.350-7.450) 01/09/20 08:51 ABG pCO2 39.1 mm Hg 01/09/20 08:51 ABG pO2 94.3 mm Hg (80.0-90.0) H 01/09/20 08:51 ABG HCO3 25.3 mmol/L (20.0-26.0) 01/09/20 08:51 ABG O2 Saturation 97.4 % (95.0-99.0) 01/09/20 08:51 ABG O2 Content 12.9 (0.0-44) 01/09/20 08:51 ABG Base Excess 1.0 mmol/L (-2.0-3.0) 01/09/20 08:51 ABG Hemoglobin 9.5 gm/dl (12.0-16.0) L 01/09/20 08:51 ABG Carboxyhemoglobin 1.3 % (0.0-5.0) 01/09/20 08:51 ABG Methemoglobin 0.4 % (0.0-1.5) 01/09/20 08:51 Oxyhemoglobin 95.7 % (95.0-99.0) 01/09/20 08:51 FiO2 35 % 01/09/20 08:51 Sodium 132 mmol/L (137-145) L 01/26/20 05:59 Potassium 4.7 mmol/L (3.6-5.0) 01/26/20 05:59 Chloride 90.9 mmol/L (98-107) L 01/26/20 05:59 Carbon Dioxide 27 mmol/L (22-30) 01/26/20 05:59 Anion Gap 19 mmol/L 01/26/20 05:59 BUN 23 mg/dL (7-17) H 01/26/20 05:59 Creatinine 0.4 mg/dL (0.7-1.2) L 01/26/20 05:59 Estimated GFR > 60 ml/min 01/26/20 05:59 BUN/Creatinine Ratio 58 % 01/26/20 05:59 Glucose 122 mg/dL (65-100) H 01/26/20 05:59 POC Glucose 132 (70-105) H 01/26/20 06:27 Lactic Acid 1.80 mmol/L (0.7-2.0) 11/25/19 05:05 Calcium 11.0 mg/dL (8.4-10.2) H 01/26/20 05:59 Ionized Calcium 4.5 mg/dL (4.8-5.6) L 11/23/19 06:32 Phosphorus 4.20 mg/dL (2.5-4.5) D 11/28/19 08:59 Magnesium 2.30 mg/dL (1.7-2.3) 11/29/19 13:41 Total Bilirubin 0.40 mg/dL (0.1-1.2) 12/13/19 07:48 AST 27 units/L (5-40) 12/13/19 07:48 ALT 26 units/L (7-56) 12/13/19 07:48 Alkaline Phosphatase 316 units/L (35-129) H 12/13/19 07:48 Ammonia 42.0 umol/L (25-60) 11/29/19 13:41 Total Creatine Kinase 139 units/L (30-135) H 11/22/19 23:27 CK-MB (CK-2) 8.3 ng/mL (0.0-4.0) H 11/22/19 23:27 CK-MB (CK-2) Rel Index 5.9 (0-4) H 11/22/19 23:27 Troponin T < 0.010 ng/mL (0.00-0.029) 11/22/19 23:27 Total Protein 6.8 g/dL (6.3-8.2) 12/13/19 07:48 Albumin 2.4 g/dL (3.9-5) L 12/13/19 07:48 Albumin/Globulin Ratio 0.5 % 12/13/19 07:48 Lipase 18 units/L (13-60) 11/23/19 00:34 Procalcitonin 1.09 ng/mL (<0.15) 11/23/19 04:53 Urine Color Yellow (Yellow) 12/16/19 Unknown Urine Turbidity Slightly-cloudy (Clear) 12/16/19 Unknown Urine pH 5.0 (5.0-7.0) 12/16/19 Unknown Ur Specific [place] 1.018 (1.003-1.030) 12/16/19 Unknown Urine Protein 30 mg/dl mg/dL (Negative) 12/16/19 Unknown Urine Glucose (UA) Neg mg/dL (Negative) 12/16/19 Unknown Urine Ketones Neg mg/dL (Negative) 12/16/19 Unknown Urine Blood Sm (Negative) 12/16/19 Unknown Urine Nitrite Neg (Negative) 12/16/19 Unknown Urine Bilirubin Neg (Negative) 12/16/19 Unknown Urine Urobilinogen < 2.0 mg/dL (<2.0) 12/16/19 Unknown Ur Leukocyte Esterase Neg (Negative) 12/16/19 Unknown Urine WBC (Auto) 6.0 /HPF (0.0-6.0) 12/16/19 Unknown Urine RBC (Auto) 9.0 /HPF (0.0-6.0) 12/16/19 Unknown U Epithel Cells (Auto) < 1.0 /HPF (0-13.0) 12/16/19 Unknown Urine Bacteria (Auto) 2+ /HPF (Negative) 11/22/19 23:17 Hyaline Casts 3 /LPF 12/16/19 Unknown Granular Casts 3 /LPF 12/16/19 Unknown Urine Mucus Few /HPF 12/16/19 Unknown Vancomycin Trough 33.8 ug/mL (5.0-20.0) H 12/21/19 08:56 Random Vancomycin 16.2 ug/mL (0-40.0) 12/24/19 04:31 Salicylates < 0.3 mg/dL (2.8-20.0) L 11/22/19 23:27 Urine Opiates Screen Presumptive negative 11/22/19 23:17 Urine Methadone Screen Presumptive negative 11/22/19 23:17 Acetaminophen < 5.0 ug/mL (10.0-30.0) L 11/22/19 23:27 Ur Barbiturates Screen Presumptive negative 11/22/19 23:17 Ur Phencyclidine Scrn Presumptive negative 11/22/19 23:17 Ur Amphetamines Screen Presumptive negative 11/22/19 23:17 U Benzodiazepines Scrn Presumptive negative 11/22/19 23:17 Urine Cocaine Screen Presumptive negative 11/22/19 23:17 U Marijuana (THC) Screen Presumptive negative 11/22/19 23:17 Drugs of Abuse Note Disclamer 11/22/19 23:17 Plasma/Serum Alcohol 0.08 % (0-0.07) H 11/22/19 23:27 Hepatitis A IgM Ab Non-reactive (NonReactive) 11/23/19 01:19 Hep Bs Antigen Non-reactive (Negative) 11/23/19 01:19 Hep B Core IgM Ab Non-reactive (NonReactive) 11/23/19 01:19 Hepatitis C Antibody Non-reactive (NonReactive) 11/23/19 01:19 Blood Type O POSITIVE 12/21/19 14:54 Antibody Screen Negative 12/21/19 14:54 Crossmatch See Detail 12/21/19 14:54 - Diagnostic Impressions Diagnostic Impressions: Echocardiogram 11/23/19 03:58 Transthoracic Echocardiogram Indication: Cardiac arrest BP: 131/89 HR: 115 Conclusions *The study quality is technically difficult. *Global left ventricular wall motion and contractility are within normal limits. *The estimated ejection fraction is 55-60%. *Abnormal left ventricular diastolic filling is observed, consistent with impaired relaxation. *There is no pericardial effusion. Findings Procedure Info: The study quality is technically difficult. The study was technically limited due to the patient's inability to lay in the left lateral decubitus position. Left Ventricle: The left ventricular chamber size is normal. There is no left ventricular hypertrophy. Global left ventricular wall motion and contractility are within normal limits. Global left ventricular systolic function is normal. The estimated ejection fraction is 55-60%. Abnormal left ventricular diastolic filling is observed, consistent with impaired relaxation. Left Atrium: The left atrial chamber size is normal. Aortic Valve: The aortic valve leaflets are mildly thickened. Mitral Valve: The mitral valve leaflets are mildly thickened. There is no evidence of mitral regurgitation. Tricuspid Valve: The tricuspid valve leaflets are normal. There is trace tricuspid regurgitation. The right ventricular systolic pressure is calculated at 33 mmHg. Pulmonic Valve: The pulmonic valve appears normal. Pericardium: The pericardium appears normal. There is no pericardial effusion. Aorta: The aorta appears normal. Venous: The inferior vena cava appears normal in size. Measurements Chambers 2D Name Value Normal Range IVSd (2D) 0.94 cm (0.6 - 1.1) LVPWd (2D) 0.81 cm (0.6 - 1.1) LVIDd (2D) 3.6 cm (3.7 - 5.6) LVIDs (2D) 2.27 cm (2 - 3.8) LV FS (2D) 36.93 % - EF Teichholz (2D) 67.76 % - Ao root diameter (2D) 3.03 cm (2 - 3.7) Volumes/Mass Name Value Normal Range LA ESV SP 4CH (A/L) 16.89 ml - LA ESV SP 4CH (MOD) 15.52 ml - Diastolic/Systolic Function Name Value Normal Range MV E-wave Vmax 0.55 m/sec - MV deceleration time 200.89 msec - MV A-wave Vmax 0.68 m/sec - MV E:A ratio 0.82 ratio - Aortic Valve Name Value Normal Range AV Vmax 1.1 m/sec - AV VTI 15.9 cm - AV peak gradient 4.86 mmHg - AV mean gradient 2.59 mmHg - LVOT diameter 2 cm - LVOT Vmax 1.03 m/sec - LVOT VTI 15.87 cm - LVOT peak gradient 4.24 mmHg - LVOT mean gradient 2.41 mmHg - SV LVOT 49.77 ml - JOSÉ MIGUEL (continuity Vmax) 2.93 cm2 - JOSÉ MIGUEL (continuity VTI) 3.13 cm2 - Tricuspid Valve Name Value Normal Range TR Vmax 2.74 m/sec - TR peak gradient 303 mmHg - RAP 3 mmHg - RVSP 33 mmHg - IVC diameter 1.77 cm (1.2 - 2.3) Pulmonic Valve/Qp:Qs Name Value Normal Range PV Vmax 0.77 m/sec - PV peak gradient 2.4 mmHg - PV acceleration time 114.18 msec - Echocardiogram Limited Views 12/17/19 14:53 Transthoracic Echocardiogram Indication: R/O Vegetations BP: 144/83 HR: 133 Conclusions *Global left ventricular systolic function is mildly decreased. *The estimated ejection fraction is 45-50%. *A trivial pericardial effusion is visualized. Findings Left Ventricle: The left ventricular chamber size is normal. Global left ventricular systolic function is mildly decreased. The estimated ejection fraction is 45-50%. Left Atrium: The left atrial chamber size is normal. Right Ventricle: The right ventricular cavity size is normal. Right Atrium: The right atrial cavity size is normal. Aortic Valve: The aortic valve is not well visualized. There is no evidence of aortic regurgitation. Mitral Valve: The mitral valve leaflets are mildly thickened. There is trace of mitral regurgitation. Tricuspid Valve: The tricuspid valve leaflets are mildly thickened. There is trace tricuspid regurgitation. The right ventricular systolic pressure is calculated at 29 mmHg. Pulmonic Valve: The pulmonic valve is not well visualized. There is no evidence of pulmonic regurgitation. Pericardium: A trivial pericardial effusion is visualized. Aorta: There is no dilatation of the ascending aorta. There is no dilatation of the aortic root. Venous: The inferior vena cava appears normal in size. There is a greater than 50% respiratory change in the inferior vena cava dimension. Measurements Chambers 2D Name Value Normal Range IVSd (2D) 0.83 cm (0.6 - 1.1) LVPWd (2D) 0.98 cm (0.6 - 1.1) LVIDd (2D) 3.71 cm (3.7 - 5.6) LVIDs (2D) 2.93 cm (2 - 3.8) LV FS (2D) 21.12 % - EF Teichholz (2D) 43.71 % - Ao root diameter (2D) 3.02 cm (2 - 3.7) Volumes/Mass Name Value Normal Range LA ESV SP 4CH (A/L) 36.8 ml - LA ESV SP 2CH (A/L) 45.89 ml - LA ESV BP (A/L) 42.35 ml - LA ESV BP (A/L) index 26.63 ml/m2 - LA ESV SP 4CH (MOD) 34.42 ml - LA ESV SP 2CH (MOD) 44.21 ml - LA ESV BP (MOD) 39.82 ml - LA ESV BP (MOD) index 25.05 ml/m2 - Aortic Valve Name Value Normal Range LVOT diameter 1.63 cm - Tricuspid Valve Name Value Normal Range TR Vmax 2.56 m/sec - TR peak gradient 26 mmHg - RAP 3 mmHg - RVSP 29 mmHg - IVC diameter 1.83 cm (1.2 - 2.3) Dela Cruz/IV: Voiding Method External Female Catheter IV Catheter Type [Forearm] Peripheral IV IV Catheter Type [Left Forearm INT / Saline Lock ] IV Catheter Type [Right Peripheral IV Antecubital] IV Catheter Type [Right Hand] Peripheral IV IV Catheter Type [Right Wrist] Peripheral IV IV Catheter Type [Left Wrist] Peripheral IV IV Catheter Type [Left Peripheral IV Antecubital] IV Catheter Type [Right INT / Saline Lock Forearm] IV Catheter Type [Left Hand] Peripheral IV Active Medications - Current Medications Current Medications: Generic Name Dose Route Start Last Admin Trade Name Freq PRN Reason Stop Dose Admin Acetaminophen 650 mg 12/06/19 10:25 01/19/20 00:30 Tylenol FEEDTUBE 650 mg Q6H PRN Administration TEMP >/=100.3 Acetylcysteine 200 mg 01/24/20 20:00 01/25/20 19:52 Mucomyst Inhalation INHALATION 200 mg BIDRT LUCHO Administration Lipase/Protease/Amylase 1 each 11/23/19 11:[address] 10,500 Unit FEEDTUBE PRN PRN Use w/ sod bicarb for FT Glycopyrrolate 2 mg 12/31/19 20:00 01/25/20 22:21 Robinul PO 2 mg TID LUCHO Administration Hydralazine HCl 10 mg 11/24/19 00:45 12/18/19 13:25 Apresoline IV 10 mg Q6H PRN Administration SBP > 160 Hydroxyzine Pamoate 25 mg 12/06/19 10:00 01/25/20 22:21 Vistaril PO 25 mg BID LUCHO Administration Lansoprazole 30 mg 11/27/19 10:00 01/25/20 10:43 Prevacid Solutab FEEDTUBE 30 mg QDAY LUCHO Administration Levalbuterol HCl 0.63 mg 01/24/20 14:00 01/26/20 04:27 Xopenex IH 0.63 mg Q6HRT LUCHO Administration Levetiracetam 500 mg 11/29/19 10:00 01/25/20 22:21 Keppra PO 500 mg BID LUCHO Administration Mirtazapine 30 mg 12/06/19 10:00 01/25/20 10:43 Remeron PO 30 mg DAILY LUCHO Administration Morphine Sulfate 2 mg 12/12/19 18:40 01/20/20 08:59 Morphine IV 2 mg Q4H PRN Administration Pain, Moderate (4-6) Ondansetron HCl 4 mg 12/10/19 07:53 01/06/20 10:53 Zofran IV 4 mg Q4H PRN Administration Nausea And Vomiting Quetiapine Fumarate 100 mg 01/09/20 21:41 01/25/20 22:21 Seroquel FEEDTUBE 100 mg QHS LUCHO Administration Sertraline HCl 25 mg 01/01/20 10:00 01/25/20 10:43 Zoloft PO 25 mg QDAY LUCHO Administration Simple Syrup 15 ml 11/23/19 11:50 Simple Syrup FEEDTUBE PRN PRN Hypoglycemia BG<70 Simple Syrup 30 ml 11/23/19 11:50 Simple Syrup FEEDTUBE PRN PRN Hypoglycemia Sodium Bicarbonate 325 mg 11/23/19 11:50 Sodium Bicarbonate FEEDTUBE PRN PRN For Clogged Feeding Tube Tamsulosin HCl 0.4 mg 12/14/19 13:00 01/25/20 10:43 Flomax PO 0.4 mg QDAY LUCHO Administration Nutrition/Malnutrition Assess - Dietary Evaluation Nutrition/Malnutrition Findings: Nutrition Notes Start: 11/23/19 11:29 Freq: Status: Active Protocol: Document 01/22/20 12:39 LM (Rec: 01/22/20 12:42 LM [id number]) Nutrition Notes Current Diagnosis Hypertension Other Pertinent Diagnosis Cardaic arrest, ETOH dependence, UTI Current Diet Jevity 1.2 at 55ml/hr Labs/Tests Reviewed Pertinent Medications Reviewed Height 5 ft 6 in Weight 54.1 kg [place] Body Weight (kg) 59.09 BMI 19.2 Weight change and time frame wt change noted Subjective/Other Information Jevity running at 55ml/hr. Pt tolerating TF. Percent of energy/protein needs met: 94%/100% Burn Absent Trauma Absent GI Symptoms None Current % PO Negligible Minimum of two criteria Yes Interpretation of Weight Loss (severe) >2% in 1 week Muscle Mass Mild Depletion (non-severe) #2 Nutrition Diagnosis Malnutrition Diagnosis Progress(for reassessment Continues documentation) #1 Nutrition Diagnosis Inadequate oral intake Diagnosis Progress(for reassessment Continues documentation) Is patient on ventilator? No Is Patient Ambulatory and/or Out of Bed No REE-([facility]-confined to bed) 1393.836 Kcal/Kg value to use for calculation 31 Approximate Energy Requirements Using 1677 kcal/Kg Calculation Used for Recommendations [facility] Additional Notes Protein: 64-80g (1.2-1.5g/kg) Fluid: 1 ml/kcal Nutrition Intervention Change Diet Order: Continue TF Nutrition Support: Jevity 1.2 at 55ml/hr Flush 50ml q6h for hyponatremia Flush 90ml q4h once resolved Kcal 1,584 Protein (gm) 73 Fluid (mL) 1,065 Goal #1 TF tolerance Goal #2 Meet at least 80% of energy and protein needs via TF Anticipated Discharge Needs: TF Follow-Up By: 01/29/20 Additional Comments F/U for TF tolerance
[2020-01-26] MEDS: SERTRALINE 50 MG TAB PO SCH (10:01)
[2020-01-26] MEDS: MIRTAZAPINE 30 MG TAB PO SCH (10:01)
[2020-01-26] MEDS: levETIRAcetam 500 MG/5 ML ORAL LIQD PO SCH ×2 (10:01→22:31)
[2020-01-26] MEDS: hydrOXYzine PAMOATE 25 MG CAP PO SCH ×2 (10:01→22:31)
[2020-01-26] MEDS: TAMSULOSIN 0.4 MG CAP PO SCH (10:01)
[2020-01-26] MEDS: LANSOPRAZOLE 30 MG SOLUTAB FEEDTUBE SCH (10:01)
[2020-01-26] MEDS: GLYCOPYRROLATE 1 MG TAB PO SCH ×3 (10:01→20:41)
[2020-01-26] MEDS: ACETYLCYSTEINE 20% 200 MG/1 ML *FOR INHALATION USE INHALATION SCH ×2 (10:31→21:20)
--- NOTE | 2020-01-26 11:39 | Progress Note ---
Assessment and Plan Acute cardiopulmonary arrest with ROSC Acute hypoxemic respiratory failure s/p MVS s/p Tracheostomy Oropharyngeal dysphagia s/p PEG MRSA Bacteremia- treated MRSA pneumonia-treated Acute ruxfrfiuf-xibgl-sniufi encephalopathy Metabolic acidosis/alcoholic acidosis/Lactic acidosis( resolved) Ischemic hepatitis Erythrocytosis Tobacco use disorder Alcohol use Disorder Continue all current care as documented below -CBC, BMP prn -Replace and correct electrolytes as indicated -Trach care, airway clearance, secretion management( continue scopolamine patch and Robinul) -CXR, ABG prn -Weaning trials as tolerated- ATP then PMV and possible capping as tolerated by secretions -Continue contact isolation for MRSA -Trend WCC and temperature curve -Continue all care as documented below. -PT/OT -Supportive transfusions as indicated for HgB <7g/dL -Continue aspiration precautions, HOB>40 -Continue Stress ulcer prophylaxis -Continue enteric nutritional support at goal rate. -Continue to monitor glycemic control, with target blood glucose 140-180 mg/dL while critically ill. -Avoid hypoglycemia - Continue to wean supplemental oxygen for target O2 sat's > 90% -Continue thiamine, multivitamin and electrolyte replacement -Continue to avoid nephrotoxins, adjust all medications for GFR and CrCL - Continue bronchodilators with pulmonary hygiene - Continue prn analgesia per CPOT score - Continue to maintain of sleep-wake cycle, avoid delirium - Continue mobility protocol and skin assessment per protocol for pressure ulcer prevention - Continue to monitor for clinical seizures - continue other care per attending / other consultants CONDITION: FAIR PROGNOSIS: FAIR CODE STATUS: DNAR Subjective Date of service: 01/26/20 Principal diagnosis: Ac cardiopulmonary arrest; Ac hypoxemic resp failure; Acute encephalopathy Interval history: Patient is seen today for: Acute cardiopulmonary arrest with ROSC; Acute hypoxemic respiratory failure; Acute metabolic-toxic encephalopathy; Ischemic hepatitis; Leucocytosis with lactic acidosis; Tobacco use disorder; Alcohol use Disorder; s/p tracheostomy; s/p PEG Seen and examined at bedside; 24hour events reviewed; nursing and respiratory care staff consulted; no adverse overnight events reported to me; resting peacefully in bed; continues to tolerate ATP No fevers, no vomiting, continues to tolerate tube feedings Awake and alert, responsive No new issues Objective Vital Signs - 12hr 01/26/20 01/26/20 01/26/20 00:00 00:08 04:20 Temperature 99.0 F 98.0 F Pulse Rate 120 H 128 H 109 H Pulse Rate [ Anterior Left Throughout] Pulse Rate [ Anterior Right Throughout] Respiratory 18 18 Rate Respiratory Rate [Anterior Left Throughout ] Respiratory Rate [Anterior Right Throughout] Blood Pressure 121/82 117/79 O2 Sat by Pulse 98 99 Oximetry O2 Sat by Pulse 99 Oximetry [ Assessment] 01/26/20 01/26/20 01/26/20 04:28 07:00 07:54 Temperature 98.0 F Pulse Rate 75 Pulse Rate [ 118 H Anterior Left Throughout] Pulse Rate [ 109 H Anterior Right Throughout] Respiratory 22 Rate Respiratory 18 Rate [Anterior Left Throughout ] Respiratory 22 Rate [Anterior Right Throughout] Blood Pressure 133/84 O2 Sat by Pulse 96 88 Oximetry O2 Sat by Pulse Oximetry [ Assessment] 01/26/20 10:00 Temperature Pulse Rate 114 H Pulse Rate [ Anterior Left Throughout] Pulse Rate [ Anterior Right Throughout] Respiratory 18 Rate Respiratory Rate [Anterior Left Throughout ] Respiratory Rate [Anterior Right Throughout] Blood Pressure O2 Sat by Pulse 96 Oximetry O2 Sat by Pulse Oximetry [ Assessment] Constitutional: no acute distress, other (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, with midline tracheostomy and with normal respiratory effort aT REST) Eyes: non-icteric ENT: oropharynx moist, other (s/p trach) Neck: supple, no lymphadenopathy, no JVD Effort: mildly labored Ascultation: Bilateral: diminished breath sounds, rhonchi Percussion: Bilateral: not dull Cardiovascular: regular rate and rhythm (tachycardia), other (S1,S2) Gastrointestinal: normoactive bowel sounds, soft, non-tender, non-distended Integumentary: normal Extremities: no cyanosis, no edema, pulses normal, no ischemia or petechiae Neurologic: other (awake; folowing simple commands) Psychiatric: other (Psychiatric: Unable to assess re: AMS) CBC and BMP: 01/26/20 05:59 01/26/20 05:59 ABG, PT/INR, D-dimer: ABG ABG pH 7.429 pH Units (7.350-7.450) 01/09/20 08:51 ABG pCO2 39.1 mm Hg 01/09/20 08:51 ABG pO2 94.3 mm Hg (80.0-90.0) H 01/09/20 08:51 ABG O2 Saturation 97.4 % (95.0-99.0) 01/09/20 08:51 PT/INR, D-dimer PT 17.0 Sec. (12.2-14.9) H 11/23/19 03:47 INR 1.36 (0.87-1.13) H 11/23/19 03:47 Abnormal lab findings: Abnormal Labs 11/22/19 11/22/19 11/22/19 23:17 23:18 23:27 WBC 21.2 H RBC 3.59 L Hgb 9.8 L Hct MCH 27 L RDW 18.6 H Plt Count 454 H Lymph % (Auto) [place] % (Auto) [place] # Baso # Seg Neutrophils % Seg Neuts % (Manual) 86.0 H Lymphocytes % (Manual) 9.0 L Monocytes % (Manual) Seg Neutrophils # Seg Neutrophils # Man 18.2 H Lymphocytes # (Manual) Monocytes # (Manual) 1.1 H Eosinophils # (Manual) Basophils # (Manual) PT INR APTT ABG pH ABG pO2 ABG HCO3 ABG O2 Saturation ABG Base Excess ABG Hemoglobin Oxyhemoglobin Sodium Potassium Chloride Carbon Dioxide BUN Creatinine Glucose POC Glucose 53 L Lactic Acid Calcium Ionized Calcium Phosphorus Magnesium Total Bilirubin AST ALT Alkaline Phosphatase Ammonia Total Creatine Kinase CK-MB (CK-2) CK-MB (CK-2) Rel Index Total Protein Albumin Urine WBC (Auto) 40.0 H Vancomycin Trough Salicylates Acetaminophen Plasma/Serum Alcohol Crossmatch 11/22/19 11/22/19 11/22/19 23:27 23:27 23:27 WBC RBC Hgb Hct MCH RDW Plt Count Lymph % (Auto) [place] % (Auto) [place] # Baso # Seg Neutrophils % Seg Neuts % (Manual) Lymphocytes % (Manual) Monocytes % (Manual) Seg Neutrophils # Seg Neutrophils # Man Lymphocytes # (Manual) Monocytes # (Manual) Eosinophils # (Manual) Basophils # (Manual) PT INR APTT ABG pH ABG pO2 ABG HCO3 ABG O2 Saturation ABG Base Excess ABG Hemoglobin Oxyhemoglobin Sodium Potassium 2.4 L* Chloride 85.1 L Carbon Dioxide 19 L BUN Creatinine 0.5 L Glucose 261 H POC Glucose Lactic Acid Calcium Ionized Calcium Phosphorus Magnesium Total Bilirubin AST 609 H ALT 152 H Alkaline Phosphatase 160 H Ammonia 117.0 H Total Creatine Kinase 139 H CK-MB (CK-2) 8.3 H CK-MB (CK-2) Rel Index 5.9 H Total Protein Albumin 3.6 L Urine WBC (Auto) Vancomycin Trough Salicylates < 0.3 L Acetaminophen Plasma/Serum Alcohol Crossmatch 11/22/19 11/22/19 11/23/19 23:27 23:27 01:10 WBC RBC Hgb Hct MCH RDW Plt Count Lymph % (Auto) [place] % (Auto) [place] # Baso # Seg Neutrophils % Seg Neuts % (Manual) Lymphocytes % (Manual) Monocytes % (Manual) Seg Neutrophils # Seg Neutrophils # Man Lymphocytes # (Manual) Monocytes # (Manual) Eosinophils # (Manual) Basophils # (Manual) PT INR APTT ABG pH 7.273 L ABG pO2 209.7 H ABG HCO3 ABG O2 Saturation 99.2 H ABG Base Excess -3.9 L ABG Hemoglobin 10.6 L Oxyhemoglobin 93.9 L Sodium Potassium Chloride Carbon Dioxide BUN Creatinine Glucose POC Glucose Lactic Acid Calcium Ionized Calcium Phosphorus Magnesium Total Bilirubin AST ALT Alkaline Phosphatase Ammonia Total Creatine Kinase CK-MB (CK-2) CK-MB (CK-2) Rel Index Total Protein Albumin Urine WBC (Auto) Vancomycin Trough Salicylates Acetaminophen < 5.0 L Plasma/Serum Alcohol 0.08 H Crossmatch 11/23/19 11/23/19 11/23/19 01:19 01:19 03:47 WBC RBC Hgb Hct MCH RDW Plt Count Lymph % (Auto) [place] % (Auto) [place] # Baso # Seg Neutrophils % Seg Neuts % (Manual) Lymphocytes % (Manual) Monocytes % (Manual) Seg Neutrophils # Seg Neutrophils # Man Lymphocytes # (Manual) Monocytes # (Manual) Eosinophils # (Manual) Basophils # (Manual) PT 16.3 H INR 1.29 H APTT ABG pH ABG pO2 ABG HCO3 ABG O2 Saturation ABG Base Excess ABG Hemoglobin Oxyhemoglobin Sodium Potassium Chloride Carbon Dioxide BUN Creatinine Glucose POC Glucose Lactic Acid 2.10 H* 5.00 H* Calcium Ionized Calcium Phosphorus Magnesium Total Bilirubin AST ALT Alkaline Phosphatase Ammonia Total Creatine Kinase CK-MB (CK-2) CK-MB (CK-2) Rel Index Total Protein Albumin Urine WBC (Auto) Vancomycin Trough Salicylates Acetaminophen Plasma/Serum Alcohol Crossmatch 11/23/19 11/23/19 11/23/19 03:47 03:47 04:53 WBC RBC Hgb 9.4 L Hct MCH RDW Plt Count Lymph % (Auto) [place] % (Auto) [place] # Baso # Seg Neutrophils % Seg Neuts % (Manual) Lymphocytes % (Manual) Monocytes % (Manual) Seg Neutrophils # Seg Neutrophils # Man Lymphocytes # (Manual) Monocytes # (Manual) Eosinophils # (Manual) Basophils # (Manual) PT 17.0 H INR 1.36 H APTT 128.2 H* ABG pH ABG pO2 ABG HCO3 ABG O2 Saturation ABG Base Excess ABG Hemoglobin Oxyhemoglobin Sodium Potassium Chloride Carbon Dioxide 18 L BUN Creatinine 0.5 L Glucose 105 H POC Glucose Lactic Acid Calcium 8.3 L Ionized Calcium Phosphorus 2.40 L Magnesium Total Bilirubin 1.30 H AST 761 H ALT 158 H Alkaline Phosphatase 143 H Ammonia Total Creatine Kinase CK-MB (CK-2) CK-MB (CK-2) Rel Index Total Protein Albumin 2.8 L Urine WBC (Auto) Vancomycin Trough Salicylates Acetaminophen Plasma/Serum Alcohol Crossmatch 11/23/19 11/23/19 11/23/19 05:12 06:32 06:32 WBC 16.8 H RBC 3.31 L Hgb 8.9 L Hct 28.7 L MCH 27 L RDW 18.6 H Plt Count Lymph % (Auto) [place] % (Auto) [place] # Baso # Seg Neutrophils % Seg Neuts % (Manual) 94.0 H Lymphocytes % (Manual) 1.0 L Monocytes % (Manual) Seg Neutrophils # Seg Neutrophils # Man 15.8 H Lymphocytes # (Manual) 0.2 L Monocytes # (Manual) Eosinophils # (Manual) Basophils # (Manual) PT INR APTT ABG pH ABG pO2 ABG HCO3 ABG O2 Saturation ABG Base Excess -3.2 L ABG Hemoglobin 9.0 L Oxyhemoglobin 93.6 L Sodium Potassium Chloride Carbon Dioxide BUN Creatinine Glucose POC Glucose Lactic Acid Calcium Ionized Calcium 4.5 L Phosphorus Magnesium Total Bilirubin AST ALT Alkaline Phosphatase Ammonia Total Creatine Kinase CK-MB (CK-2) CK-MB (CK-2) Rel Index Total Protein Albumin Urine WBC (Auto) Vancomycin Trough Salicylates Acetaminophen Plasma/Serum Alcohol Crossmatch 11/23/19 11/24/19 11/24/19 06:32 04:35 04:35 WBC RBC Hgb Hct MCH RDW Plt Count Lymph % (Auto) [place] % (Auto) [place] # Baso # Seg Neutrophils % Seg Neuts % (Manual) Lymphocytes % (Manual) Monocytes % (Manual) Seg Neutrophils # Seg Neutrophils # Man Lymphocytes # (Manual) Monocytes # (Manual) Eosinophils # (Manual) Basophils # (Manual) PT INR APTT ABG pH ABG pO2 ABG HCO3 ABG O2 Saturation ABG Base Excess ABG Hemoglobin Oxyhemoglobin Sodium Potassium Chloride Carbon Dioxide BUN Creatinine Glucose POC Glucose Lactic Acid 3.30 H* Calcium Ionized Calcium Phosphorus Magnesium 1.40 L Total Bilirubin AST ALT Alkaline Phosphatase Ammonia 98.0 H Total Creatine Kinase CK-MB (CK-2) CK-MB (CK-2) Rel Index Total Protein Albumin Urine WBC (Auto) Vancomycin Trough Salicylates Acetaminophen Plasma/Serum Alcohol Crossmatch 11/24/19 11/25/19 11/25/19 05:22 04:34 05:05 WBC 17.3 H RBC 2.88 L Hgb 7.8 L Hct 24.6 L MCH 27 L RDW 18.5 H Plt Count Lymph % (Auto) 7.7 L [place] % (Auto) 9.7 H [place] # 1.7 H Baso # Seg Neutrophils % 82.2 H Seg Neuts % (Manual) Lymphocytes % (Manual) Monocytes % (Manual) Seg Neutrophils # 14.2 H Seg Neutrophils # Man Lymphocytes # (Manual) Monocytes # (Manual) Eosinophils # (Manual) Basophils # (Manual) PT INR APTT ABG pH 7.475 H ABG pO2 ABG HCO3 29.4 H 32.3 H ABG O2 Saturation ABG Base Excess 5.4 H 6.9 H ABG Hemoglobin 9.0 L 10.6 L Oxyhemoglobin 94.3 L Sodium Potassium Chloride Carbon Dioxide BUN Creatinine Glucose POC Glucose Lactic Acid Calcium Ionized Calcium Phosphorus Magnesium Total Bilirubin AST ALT Alkaline Phosphatase Ammonia Total Creatine Kinase CK-MB (CK-2) CK-MB (CK-2) Rel Index Total Protein Albumin Urine WBC (Auto) Vancomycin Trough Salicylates Acetaminophen Plasma/Serum Alcohol Crossmatch 11/25/19 11/25/19 11/26/19 05:05 22:46 03:31 WBC RBC Hgb Hct MCH RDW Plt Count Lymph % (Auto) [place] % (Auto) [place] # Baso # Seg Neutrophils % Seg Neuts % (Manual) Lymphocytes % (Manual) Monocytes % (Manual) Seg Neutrophils # Seg Neutrophils # Man Lymphocytes # (Manual) Monocytes # (Manual) Eosinophils # (Manual) Basophils # (Manual) PT INR APTT ABG pH 7.459 H ABG pO2 ABG HCO3 34.2 H ABG O2 Saturation ABG Base Excess 9.4 H ABG Hemoglobin 7.6 L Oxyhemoglobin 94.8 L Sodium 152 H D 147 H Potassium 2.3 L* D 2.8 L* D Chloride 107.8 H Carbon Dioxide 31 H D 33 H BUN Creatinine 0.6 L 0.6 L Glucose 148 H 177 H POC Glucose Lactic Acid Calcium Ionized Calcium Phosphorus Magnesium Total Bilirubin AST 105 H ALT 71 H Alkaline Phosphatase 155 H Ammonia Total Creatine Kinase CK-MB (CK-2) CK-MB (CK-2) Rel Index Total Protein 5.2 L D Albumin 2.9 L Urine WBC (Auto) Vancomycin Trough Salicylates Acetaminophen Plasma/Serum Alcohol Crossmatch 11/26/19 11/26/19 11/27/19 08:24 08:24 04:20 WBC 12.0 H RBC 3.00 L Hgb 8.0 L 9.3 L Hct 25.9 L 29.7 L MCH 27 L RDW 18.5 H Plt Count Lymph % (Auto) [place] % (Auto) [place] # Baso # Seg Neutrophils % Seg Neuts % (Manual) 89.0 H Lymphocytes % (Manual) 4.0 L Monocytes % (Manual) Seg Neutrophils # Seg Neutrophils # Man 10.7 H Lymphocytes # (Manual) 0.5 L Monocytes # (Manual) Eosinophils # (Manual) Basophils # (Manual) PT INR APTT ABG pH ABG pO2 ABG HCO3 ABG O2 Saturation ABG Base Excess ABG Hemoglobin Oxyhemoglobin Sodium 146 H Potassium 3.4 L D Chloride Carbon Dioxide BUN Creatinine 0.5 L Glucose 165 H POC Glucose Lactic Acid Calcium Ionized Calcium Phosphorus Magnesium Total Bilirubin AST 57 H ALT Alkaline Phosphatase 166 H Ammonia Total Creatine Kinase CK-MB (CK-2) CK-MB (CK-2) Rel Index Total Protein Albumin 2.9 L Urine WBC (Auto) Vancomycin Trough Salicylates Acetaminophen Plasma/Serum Alcohol Crossmatch 11/27/19 11/27/19 11/27/19 04:28 04:28 04:42 WBC RBC Hgb Hct MCH RDW Plt Count Lymph % (Auto) [place] % (Auto) [place] # Baso # Seg Neutrophils % Seg Neuts % (Manual) Lymphocytes % (Manual) Monocytes % (Manual) Seg Neutrophils # Seg Neutrophils # Man Lymphocytes # (Manual) Monocytes # (Manual) Eosinophils # (Manual) Basophils # (Manual) PT INR APTT ABG pH 7.470 H ABG pO2 74.0 L ABG HCO3 33.8 H ABG O2 Saturation ABG Base Excess 9.1 H ABG Hemoglobin 8.7 L Oxyhemoglobin 94.7 L Sodium 146 H Potassium 2.9 L* Chloride Carbon Dioxide BUN 25 H Creatinine Glucose 213 H POC Glucose Lactic Acid Calcium Ionized Calcium Phosphorus 1.00 L Magnesium Total Bilirubin AST ALT Alkaline Phosphatase Ammonia Total Creatine Kinase CK-MB (CK-2) CK-MB (CK-2) Rel Index Total Protein Albumin Urine WBC (Auto) Vancomycin Trough Salicylates Acetaminophen Plasma/Serum Alcohol Crossmatch 11/27/19 11/27/19 11/27/19 05:37 12:20 15:46 WBC RBC Hgb Hct MCH RDW Plt Count Lymph % (Auto) [place] % (Auto) [place] # Baso # Seg Neutrophils % Seg Neuts % (Manual) Lymphocytes % (Manual) Monocytes % (Manual) Seg Neutrophils # Seg Neutrophils # Man Lymphocytes # (Manual) Monocytes # (Manual) Eosinophils # (Manual) Basophils # (Manual) PT INR APTT ABG pH ABG pO2 ABG HCO3 ABG O2 Saturation ABG Base Excess ABG Hemoglobin Oxyhemoglobin Sodium 146 H Potassium 3.5 L D Chloride Carbon Dioxide BUN 24 H Creatinine 0.6 L Glucose 187 H POC Glucose 117 H 220 H Lactic Acid Calcium Ionized Calcium Phosphorus Magnesium Total Bilirubin AST ALT Alkaline Phosphatase Ammonia Total Creatine Kinase CK-MB (CK-2) CK-MB (CK-2) Rel Index Total Protein Albumin Urine WBC (Auto) Vancomycin Trough Salicylates Acetaminophen Plasma/Serum Alcohol Crossmatch 11/27/19 11/28/19 11/28/19 17:28 05:00 05:02 WBC RBC Hgb Hct MCH RDW Plt Count Lymph % (Auto) [place] % (Auto) [place] # Baso # Seg Neutrophils % Seg Neuts % (Manual) Lymphocytes % (Manual) Monocytes % (Manual) Seg Neutrophils # Seg Neutrophils # Man Lymphocytes # (Manual) Monocytes # (Manual) Eosinophils # (Manual) Basophils # (Manual) PT INR APTT ABG pH ABG pO2 72.4 L ABG HCO3 33.6 H ABG O2 Saturation 94.1 L ABG Base Excess 7.3 H ABG Hemoglobin Oxyhemoglobin 91.8 L Sodium 146 H Potassium 3.3 L Chloride Carbon Dioxide BUN 25 H Creatinine 0.6 L Glucose 176 H POC Glucose 198 H Lactic Acid Calcium Ionized Calcium Phosphorus Magnesium Total Bilirubin AST ALT Alkaline Phosphatase Ammonia Total Creatine Kinase CK-MB (CK-2) CK-MB (CK-2) Rel Index Total Protein Albumin Urine WBC (Auto) Vancomycin Trough Salicylates Acetaminophen Plasma/Serum Alcohol Crossmatch 11/28/19 11/28/19 11/29/19 05:02 18:55 10:43 WBC 15.2 H 19.0 H RBC 3.06 L 3.01 L Hgb 8.3 L 8.3 L Hct 27.0 L 26.4 L MCH 27 L RDW 19.0 H 19.7 H Plt Count 479 H 611 H Lymph % (Auto) [place] % (Auto) [place] # Baso # Seg Neutrophils % Seg Neuts % (Manual) 92.0 H Lymphocytes % (Manual) 2.0 L Monocytes % (Manual) Seg Neutrophils # Seg Neutrophils # Man 14.0 H Lymphocytes # (Manual) 0.3 L Monocytes # (Manual) Eosinophils # (Manual) Basophils # (Manual) PT INR APTT ABG pH ABG pO2 ABG HCO3 ABG O2 Saturation ABG Base Excess ABG Hemoglobin Oxyhemoglobin Sodium Potassium Chloride Carbon Dioxide BUN Creatinine Glucose POC Glucose 138 H Lactic Acid Calcium Ionized Calcium Phosphorus Magnesium Total Bilirubin AST ALT Alkaline Phosphatase Ammonia Total Creatine Kinase CK-MB (CK-2) CK-MB (CK-2) Rel Index Total Protein Albumin Urine WBC (Auto) Vancomycin Trough Salicylates Acetaminophen Plasma/Serum Alcohol Crossmatch 11/29/19 11/29/19 11/29/19 10:43 12:27 19:25 WBC RBC Hgb Hct MCH RDW Plt Count Lymph % (Auto) [place] % (Auto) [place] # Baso # Seg Neutrophils % Seg Neuts % (Manual) Lymphocytes % (Manual) Monocytes % (Manual) Seg Neutrophils # Seg Neutrophils # Man Lymphocytes # (Manual) Monocytes # (Manual) Eosinophils # (Manual) Basophils # (Manual) PT INR APTT ABG pH ABG pO2 ABG HCO3 ABG O2 Saturation ABG Base Excess ABG Hemoglobin Oxyhemoglobin Sodium Potassium 2.8 L* Chloride Carbon Dioxide BUN 20 H Creatinine 0.5 L Glucose 121 H POC Glucose 128 H 120 H Lactic Acid Calcium Ionized Calcium Phosphorus Magnesium Total Bilirubin AST ALT Alkaline Phosphatase Ammonia Total Creatine Kinase CK-MB (CK-2) CK-MB (CK-2) Rel Index Total Protein Albumin Urine WBC (Auto) Vancomycin Trough Salicylates Acetaminophen Plasma/Serum Alcohol Crossmatch 11/29/19 11/30/19 11/30/19 23:46 04:10 05:02 WBC RBC Hgb Hct MCH RDW Plt Count Lymph % (Auto) [place] % (Auto) [place] # Baso # Seg Neutrophils % Seg Neuts % (Manual) Lymphocytes % (Manual) Monocytes % (Manual) Seg Neutrophils # Seg Neutrophils # Man Lymphocytes # (Manual) Monocytes # (Manual) Eosinophils # (Manual) Basophils # (Manual) PT INR APTT ABG pH ABG pO2 76.3 L ABG HCO3 32.5 H ABG O2 Saturation ABG Base Excess 6.9 H ABG Hemoglobin 8.0 L Oxyhemoglobin 92.6 L Sodium Potassium Chloride Carbon Dioxide BUN Creatinine Glucose POC Glucose 116 H 128 H Lactic Acid Calcium Ionized Calcium Phosphorus Magnesium Total Bilirubin AST ALT Alkaline Phosphatase Ammonia Total Creatine Kinase CK-MB (CK-2) CK-MB (CK-2) Rel Index Total Protein Albumin Urine WBC (Auto) Vancomycin Trough Salicylates Acetaminophen Plasma/Serum Alcohol Crossmatch 11/30/19 11/30/19 11/30/19 05:25 05:25 12:59 WBC 18.4 H RBC 3.10 L Hgb 8.5 L Hct 27.5 L MCH 27 L RDW 20.9 H Plt Count 691 H Lymph % (Auto) 7.1 L [place] % (Auto) 7.7 H [place] # 1.4 H Baso # Seg Neutrophils % 83.4 H Seg Neuts % (Manual) Lymphocytes % (Manual) Monocytes % (Manual) Seg Neutrophils # 15.4 H Seg Neutrophils # Man Lymphocytes # (Manual) Monocytes # (Manual) Eosinophils # (Manual) Basophils # (Manual) PT INR APTT ABG pH ABG pO2 ABG HCO3 ABG O2 Saturation ABG Base Excess ABG Hemoglobin Oxyhemoglobin Sodium 146 H Potassium Chloride 107.2 H Carbon Dioxide BUN Creatinine 0.5 L Glucose 132 H POC Glucose 124 H Lactic Acid Calcium Ionized Calcium Phosphorus Magnesium Total Bilirubin AST 246 H ALT 274 H Alkaline Phosphatase 203 H Ammonia Total Creatine Kinase CK-MB (CK-2) CK-MB (CK-2) Rel Index Total Protein 5.4 L Albumin 2.9 L Urine WBC (Auto) Vancomycin Trough Salicylates Acetaminophen Plasma/Serum Alcohol Crossmatch 11/30/19 12/01/19 12/01/19 17:53 00:05 05:10 WBC RBC Hgb Hct MCH RDW Plt Count Lymph % (Auto) [place] % (Auto) [place] # Baso # Seg Neutrophils % Seg Neuts % (Manual) Lymphocytes % (Manual) Monocytes % (Manual) Seg Neutrophils # Seg Neutrophils # Man Lymphocytes # (Manual) Monocytes # (Manual) Eosinophils # (Manual) Basophils # (Manual) PT INR APTT ABG pH ABG pO2 ABG HCO3 ABG O2 Saturation ABG Base Excess ABG Hemoglobin Oxyhemoglobin Sodium Potassium Chloride Carbon Dioxide BUN Creatinine Glucose POC Glucose 113 H 143 H 145 H Lactic Acid Calcium Ionized Calcium Phosphorus Magnesium Total Bilirubin AST ALT Alkaline Phosphatase Ammonia Total Creatine Kinase CK-MB (CK-2) CK-MB (CK-2) Rel Index Total Protein Albumin Urine WBC (Auto) Vancomycin Trough Salicylates Acetaminophen Plasma/Serum Alcohol Crossmatch 12/01/19 12/01/19 12/01/19 05:33 08:23 08:23 WBC 22.7 H RBC 2.88 L Hgb 7.9 L Hct 25.2 L MCH 27 L RDW 21.0 H Plt Count 732 H Lymph % (Auto) [place] % (Auto) [place] # Baso # Seg Neutrophils % Seg Neuts % (Manual) 91.0 H Lymphocytes % (Manual) 3.0 L Monocytes % (Manual) Seg Neutrophils # Seg Neutrophils # Man 20.7 H Lymphocytes # (Manual) 0.7 L Monocytes # (Manual) 1.1 H Eosinophils # (Manual) Basophils # (Manual) PT INR APTT ABG pH ABG pO2 68.6 L ABG HCO3 34.1 H ABG O2 Saturation ABG Base Excess 9.0 H ABG Hemoglobin 6.5 L Oxyhemoglobin 94.7 L Sodium Potassium Chloride Carbon Dioxide BUN Creatinine 0.5 L Glucose 125 H POC Glucose Lactic Acid Calcium Ionized Calcium Phosphorus Magnesium Total Bilirubin AST ALT Alkaline Phosphatase Ammonia Total Creatine Kinase CK-MB (CK-2) CK-MB (CK-2) Rel Index Total Protein Albumin Urine WBC (Auto) Vancomycin Trough Salicylates Acetaminophen Plasma/Serum Alcohol Crossmatch 12/01/19 12/01/19 12/01/19 13:21 17:54 20:59 WBC RBC Hgb Hct MCH RDW Plt Count Lymph % (Auto) [place] % (Auto) [place] # Baso # Seg Neutrophils % Seg Neuts % (Manual) Lymphocytes % (Manual) Monocytes % (Manual) Seg Neutrophils # Seg Neutrophils # Man Lymphocytes # (Manual) Monocytes # (Manual) Eosinophils # (Manual) Basophils # (Manual) PT INR APTT ABG pH ABG pO2 78.3 L ABG HCO3 33.8 H ABG O2 Saturation 94.9 L ABG Base Excess 7.9 H ABG Hemoglobin 11.5 L Oxyhemoglobin 92.3 L Sodium Potassium Chloride Carbon Dioxide BUN Creatinine Glucose POC Glucose 111 H 115 H Lactic Acid Calcium Ionized Calcium Phosphorus Magnesium Total Bilirubin AST ALT Alkaline Phosphatase Ammonia Total Creatine Kinase CK-MB (CK-2) CK-MB (CK-2) Rel Index Total Protein Albumin Urine WBC (Auto) Vancomycin Trough Salicylates Acetaminophen Plasma/Serum Alcohol Crossmatch 12/02/19 12/03/19 12/04/19 12:55 20:00 04:26 WBC 15.2 H RBC 2.69 L Hgb 7.4 L Hct 23.6 L MCH 27 L RDW 19.9 H Plt Count 838 H Lymph % (Auto) [place] % (Auto) [place] # Baso # Seg Neutrophils % Seg Neuts % (Manual) Lymphocytes % (Manual) Monocytes % (Manual) Seg Neutrophils # Seg Neutrophils # Man Lymphocytes # (Manual) Monocytes # (Manual) Eosinophils # (Manual) Basophils # (Manual) PT INR APTT ABG pH ABG pO2 68.3 L ABG HCO3 33.5 H ABG O2 Saturation 93.5 L ABG Base Excess 8.4 H ABG Hemoglobin 7.3 L Oxyhemoglobin 90.9 L Sodium Potassium Chloride Carbon Dioxide BUN Creatinine Glucose POC Glucose 107 H Lactic Acid Calcium Ionized Calcium Phosphorus Magnesium Total Bilirubin AST ALT Alkaline Phosphatase Ammonia Total Creatine Kinase CK-MB (CK-2) CK-MB (CK-2) Rel Index Total Protein Albumin Urine WBC (Auto) Vancomycin Trough Salicylates Acetaminophen Plasma/Serum Alcohol Crossmatch 12/04/19 12/04/19 12/04/19 04:26 07:45 12:02 WBC 15.9 H RBC 2.88 L Hgb 7.9 L Hct 25.1 L MCH RDW 20.4 H Plt Count 839 H Lymph % (Auto) 11.3 L [place] % (Auto) 15.2 H [place] # 2.4 H Baso # Seg Neutrophils % 72.4 H Seg Neuts % (Manual) Lymphocytes % (Manual) Monocytes % (Manual) Seg Neutrophils # 11.5 H Seg Neutrophils # Man Lymphocytes # (Manual) Monocytes # (Manual) Eosinophils # (Manual) Basophils # (Manual) PT INR APTT ABG pH ABG pO2 ABG HCO3 ABG O2 Saturation ABG Base Excess ABG Hemoglobin Oxyhemoglobin Sodium Potassium Chloride 96.5 L Carbon Dioxide BUN 21 H Creatinine 0.6 L Glucose 107 H POC Glucose 138 H Lactic Acid Calcium Ionized Calcium Phosphorus Magnesium Total Bilirubin AST ALT Alkaline Phosphatase Ammonia Total Creatine Kinase CK-MB (CK-2) CK-MB (CK-2) Rel Index Total Protein Albumin Urine WBC (Auto) Vancomycin Trough Salicylates Acetaminophen Plasma/Serum Alcohol Crossmatch 12/04/19 12/05/19 12/05/19 18:16 11:55 18:36 WBC RBC Hgb Hct MCH RDW Plt Count Lymph % (Auto) [place] % (Auto) [place] # Baso # Seg Neutrophils % Seg Neuts % (Manual) Lymphocytes % (Manual) Monocytes % (Manual) Seg Neutrophils # Seg Neutrophils # Man Lymphocytes # (Manual) Monocytes # (Manual) Eosinophils # (Manual) Basophils # (Manual) PT INR APTT ABG pH ABG pO2 ABG HCO3 ABG O2 Saturation ABG Base Excess ABG Hemoglobin Oxyhemoglobin Sodium Potassium Chloride Carbon Dioxide BUN Creatinine Glucose POC Glucose 135 H 125 H 135 H Lactic Acid Calcium Ionized Calcium Phosphorus Magnesium Total Bilirubin AST ALT Alkaline Phosphatase Ammonia Total Creatine Kinase CK-MB (CK-2) CK-MB (CK-2) Rel Index Total Protein Albumin Urine WBC (Auto) Vancomycin Trough Salicylates Acetaminophen Plasma/Serum Alcohol Crossmatch 12/05/19 12/06/19 12/06/19 23:30 04:14 05:43 WBC RBC Hgb Hct MCH RDW Plt Count Lymph % (Auto) [place] % (Auto) [place] # Baso # Seg Neutrophils % Seg Neuts % (Manual) Lymphocytes % (Manual) Monocytes % (Manual) Seg Neutrophils # Seg Neutrophils # Man Lymphocytes # (Manual) Monocytes # (Manual) Eosinophils # (Manual) Basophils # (Manual) PT INR APTT ABG pH ABG pO2 ABG HCO3 ABG O2 Saturation ABG Base Excess ABG Hemoglobin Oxyhemoglobin Sodium Potassium 5.6 H Chloride 95.0 L Carbon Dioxide BUN 48 H Creatinine 1.3 H D Glucose POC Glucose 126 H 121 H Lactic Acid Calcium Ionized Calcium Phosphorus Magnesium Total Bilirubin AST 89 H ALT 98 H Alkaline Phosphatase 476 H Ammonia Total Creatine Kinase CK-MB (CK-2) CK-MB (CK-2) Rel Index Total Protein Albumin 2.8 L Urine WBC (Auto) Vancomycin Trough Salicylates Acetaminophen Plasma/Serum Alcohol Crossmatch 12/06/19 12/06/19 12/07/19 10:39 14:34 00:19 WBC 17.3 H RBC 2.60 L Hgb 7.1 L Hct 22.7 L MCH 27 L RDW 20.1 H Plt Count 832 H Lymph % (Auto) [place] % (Auto) [place] # Baso # Seg Neutrophils % Seg Neuts % (Manual) Lymphocytes % (Manual) Monocytes % (Manual) Seg Neutrophils # Seg Neutrophils # Man Lymphocytes # (Manual) Monocytes # (Manual) Eosinophils # (Manual) Basophils # (Manual) PT INR APTT ABG pH ABG pO2 ABG HCO3 ABG O2 Saturation ABG Base Excess ABG Hemoglobin Oxyhemoglobin Sodium Potassium Chloride Carbon Dioxide BUN Creatinine Glucose POC Glucose 128 H 136 H Lactic Acid Calcium Ionized Calcium Phosphorus Magnesium Total Bilirubin AST ALT Alkaline Phosphatase Ammonia Total Creatine Kinase CK-MB (CK-2) CK-MB (CK-2) Rel Index Total Protein Albumin Urine WBC (Auto) Vancomycin Trough Salicylates Acetaminophen Plasma/Serum Alcohol Crossmatch 12/07/19 12/07/19 12/07/19 03:44 03:44 05:53 WBC 16.2 H RBC 2.56 L Hgb 7.1 L Hct 22.3 L MCH RDW 19.4 H Plt Count 782 H Lymph % (Auto) [place] % (Auto) [place] # Baso # Seg Neutrophils % Seg Neuts % (Manual) Lymphocytes % (Manual) Monocytes % (Manual) Seg Neutrophils # Seg Neutrophils # Man Lymphocytes # (Manual) Monocytes # (Manual) Eosinophils # (Manual) Basophils # (Manual) PT INR APTT ABG pH ABG pO2 ABG HCO3 ABG O2 Saturation ABG Base Excess ABG Hemoglobin Oxyhemoglobin Sodium Potassium Chloride 95.6 L Carbon Dioxide BUN 56 H Creatinine 1.4 H Glucose 120 H POC Glucose 128 H Lactic Acid Calcium 10.3 H Ionized Calcium Phosphorus Magnesium Total Bilirubin AST ALT Alkaline Phosphatase Ammonia Total Creatine Kinase CK-MB (CK-2) CK-MB (CK-2) Rel Index Total Protein Albumin Urine WBC (Auto) Vancomycin Trough Salicylates Acetaminophen Plasma/Serum Alcohol Crossmatch 12/07/19 12/07/19 12/08/19 12:54 23:47 00:20 WBC RBC Hgb Hct MCH RDW Plt Count Lymph % (Auto) [place] % (Auto) [place] # Baso # Seg Neutrophils % Seg Neuts % (Manual) Lymphocytes % (Manual) Monocytes % (Manual) Seg Neutrophils # Seg Neutrophils # Man Lymphocytes # (Manual) Monocytes # (Manual) Eosinophils # (Manual) Basophils # (Manual) PT INR APTT ABG pH ABG pO2 ABG HCO3 ABG O2 Saturation ABG Base Excess ABG Hemoglobin Oxyhemoglobin Sodium Potassium Chloride Carbon Dioxide BUN Creatinine Glucose POC Glucose 128 H 130 H 124 H Lactic Acid Calcium Ionized Calcium Phosphorus Magnesium Total Bilirubin AST ALT Alkaline Phosphatase Ammonia Total Creatine Kinase CK-MB (CK-2) CK-MB (CK-2) Rel Index Total Protein Albumin Urine WBC (Auto) Vancomycin Trough Salicylates Acetaminophen Plasma/Serum Alcohol Crossmatch 12/08/19 12/08/19 12/08/19 06:38 12:04 18:26 WBC RBC Hgb Hct MCH RDW Plt Count Lymph % (Auto) [place] % (Auto) [place] # Baso # Seg Neutrophils % Seg Neuts % (Manual) Lymphocytes % (Manual) Monocytes % (Manual) Seg Neutrophils # Seg Neutrophils # Man Lymphocytes # (Manual) Monocytes # (Manual) Eosinophils # (Manual) Basophils # (Manual) PT INR APTT ABG pH ABG pO2 ABG HCO3 ABG O2 Saturation ABG Base Excess ABG Hemoglobin Oxyhemoglobin Sodium Potassium Chloride Carbon Dioxide BUN Creatinine Glucose POC Glucose 137 H 129 H 150 H Lactic Acid Calcium Ionized Calcium Phosphorus Magnesium Total Bilirubin AST ALT Alkaline Phosphatase Ammonia Total Creatine Kinase CK-MB (CK-2) CK-MB (CK-2) Rel Index Total Protein Albumin Urine WBC (Auto) Vancomycin Trough Salicylates Acetaminophen Plasma/Serum Alcohol Crossmatch 12/09/19 12/09/19 12/09/19 00:56 05:34 06:13 WBC RBC Hgb Hct MCH RDW Plt Count Lymph % (Auto) [place] % (Auto) [place] # Baso # Seg Neutrophils % Seg Neuts % (Manual) Lymphocytes % (Manual) Monocytes % (Manual) Seg Neutrophils # Seg Neutrophils # Man Lymphocytes # (Manual) Monocytes # (Manual) Eosinophils # (Manual) Basophils # (Manual) PT INR APTT ABG pH ABG pO2 ABG HCO3 ABG O2 Saturation ABG Base Excess ABG Hemoglobin Oxyhemoglobin Sodium 146 H Potassium Chloride Carbon Dioxide BUN 66 H Creatinine 1.9 H Glucose 116 H POC Glucose 130 H 130 H Lactic Acid Calcium Ionized Calcium Phosphorus Magnesium Total Bilirubin AST ALT Alkaline Phosphatase Ammonia Total Creatine Kinase CK-MB (CK-2) CK-MB (CK-2) Rel Index Total Protein Albumin Urine WBC (Auto) Vancomycin Trough Salicylates Acetaminophen Plasma/Serum Alcohol Crossmatch 12/09/19 12/09/19 12/10/19 11:52 17:50 00:14 WBC RBC Hgb Hct MCH RDW Plt Count Lymph % (Auto) [place] % (Auto) [place] # Baso # Seg Neutrophils % Seg Neuts % (Manual) Lymphocytes % (Manual) Monocytes % (Manual) Seg Neutrophils # Seg Neutrophils # Man Lymphocytes # (Manual) Monocytes # (Manual) Eosinophils # (Manual) Basophils # (Manual) PT INR APTT ABG pH ABG pO2 ABG HCO3 ABG O2 Saturation ABG Base Excess ABG Hemoglobin Oxyhemoglobin Sodium Potassium Chloride Carbon Dioxide BUN Creatinine Glucose POC Glucose 135 H 120 H 116 H Lactic Acid Calcium Ionized Calcium Phosphorus Magnesium Total Bilirubin AST ALT Alkaline Phosphatase Ammonia Total Creatine Kinase CK-MB (CK-2) CK-MB (CK-2) Rel Index Total Protein Albumin Urine WBC (Auto) Vancomycin Trough Salicylates Acetaminophen Plasma/Serum Alcohol Crossmatch 12/10/19 12/10/19 12/10/19 05:38 11:38 17:34 WBC RBC Hgb Hct MCH RDW Plt Count Lymph % (Auto) [place] % (Auto) [place] # Baso # Seg Neutrophils % Seg Neuts % (Manual) Lymphocytes % (Manual) Monocytes % (Manual) Seg Neutrophils # Seg Neutrophils # Man Lymphocytes # (Manual) Monocytes # (Manual) Eosinophils # (Manual) Basophils # (Manual) PT INR APTT ABG pH ABG pO2 ABG HCO3 ABG O2 Saturation ABG Base Excess ABG Hemoglobin Oxyhemoglobin Sodium Potassium Chloride Carbon Dioxide BUN Creatinine Glucose POC Glucose 115 H 112 H 130 H Lactic Acid Calcium Ionized Calcium Phosphorus Magnesium Total Bilirubin AST ALT Alkaline Phosphatase Ammonia Total Creatine Kinase CK-MB (CK-2) CK-MB (CK-2) Rel Index Total Protein Albumin Urine WBC (Auto) Vancomycin Trough Salicylates Acetaminophen Plasma/Serum Alcohol Crossmatch 12/11/19 12/11/19 12/11/19 00:20 05:31 12:22 WBC RBC Hgb Hct MCH RDW Plt Count Lymph % (Auto) [place] % (Auto) [place] # Baso # Seg Neutrophils % Seg Neuts % (Manual) Lymphocytes % (Manual) Monocytes % (Manual) Seg Neutrophils # Seg Neutrophils # Man Lymphocytes # (Manual) Monocytes # (Manual) Eosinophils # (Manual) Basophils # (Manual) PT INR APTT ABG pH ABG pO2 ABG HCO3 ABG O2 Saturation ABG Base Excess ABG Hemoglobin Oxyhemoglobin Sodium Potassium Chloride Carbon Dioxide BUN Creatinine Glucose POC Glucose 124 H 132 H 128 H Lactic Acid Calcium Ionized Calcium Phosphorus Magnesium Total Bilirubin AST ALT Alkaline Phosphatase Ammonia Total Creatine Kinase CK-MB (CK-2) CK-MB (CK-2) Rel Index Total Protein Albumin Urine WBC (Auto) Vancomycin Trough Salicylates Acetaminophen Plasma/Serum Alcohol Crossmatch 12/11/19 12/11/19 12/12/19 18:04 23:42 03:51 WBC RBC Hgb Hct MCH RDW Plt Count Lymph % (Auto) [place] % (Auto) [place] # Baso # Seg Neutrophils % Seg Neuts % (Manual) Lymphocytes % (Manual) Monocytes % (Manual) Seg Neutrophils # Seg Neutrophils # Man Lymphocytes # (Manual) Monocytes # (Manual) Eosinophils # (Manual) Basophils # (Manual) PT INR APTT ABG pH ABG pO2 ABG HCO3 ABG O2 Saturation ABG Base Excess ABG Hemoglobin Oxyhemoglobin Sodium 149 H Potassium Chloride Carbon Dioxide 20 L D BUN 77 H Creatinine 2.8 H Glucose POC Glucose 133 H 154 H Lactic Acid Calcium Ionized Calcium Phosphorus Magnesium Total Bilirubin AST ALT Alkaline Phosphatase Ammonia Total Creatine Kinase CK-MB (CK-2) CK-MB (CK-2) Rel Index Total Protein Albumin Urine WBC (Auto) Vancomycin Trough Salicylates Acetaminophen Plasma/Serum Alcohol Crossmatch 12/12/19 12/12/19 12/12/19 05:18 05:26 10:30 WBC 18.0 H RBC 2.51 L Hgb 6.8 L Hct 22.0 L MCH 27 L RDW 19.9 H Plt Count 582 H Lymph % (Auto) [place] % (Auto) [place] # Baso # Seg Neutrophils % Seg Neuts % (Manual) Lymphocytes % (Manual) Monocytes % (Manual) Seg Neutrophils # Seg Neutrophils # Man Lymphocytes # (Manual) Monocytes # (Manual) Eosinophils # (Manual) Basophils # (Manual) PT INR APTT ABG pH ABG pO2 ABG HCO3 ABG O2 Saturation ABG Base Excess ABG Hemoglobin Oxyhemoglobin Sodium Potassium Chloride Carbon Dioxide BUN Creatinine Glucose POC Glucose 135 H Lactic Acid Calcium Ionized Calcium Phosphorus Magnesium Total Bilirubin AST ALT Alkaline Phosphatase Ammonia Total Creatine Kinase CK-MB (CK-2) CK-MB (CK-2) Rel Index Total Protein Albumin Urine WBC (Auto) Vancomycin Trough Salicylates Acetaminophen Plasma/Serum Alcohol Crossmatch See Detail 12/12/19 12/12/19 12/12/19 11:44 18:10 23:21 WBC RBC Hgb Hct MCH RDW Plt Count Lymph % (Auto) [place] % (Auto) [place] # Baso # Seg Neutrophils % Seg Neuts % (Manual) Lymphocytes % (Manual) Monocytes % (Manual) Seg Neutrophils # Seg Neutrophils # Man Lymphocytes # (Manual) Monocytes # (Manual) Eosinophils # (Manual) Basophils # (Manual) PT INR APTT ABG pH ABG pO2 ABG HCO3 ABG O2 Saturation ABG Base Excess ABG Hemoglobin Oxyhemoglobin Sodium Potassium Chloride Carbon Dioxide BUN Creatinine Glucose POC Glucose 108 H 107 H 126 H Lactic Acid Calcium Ionized Calcium Phosphorus Magnesium Total Bilirubin AST ALT Alkaline Phosphatase Ammonia Total Creatine Kinase CK-MB (CK-2) CK-MB (CK-2) Rel Index Total Protein Albumin Urine WBC (Auto) Vancomycin Trough Salicylates Acetaminophen Plasma/Serum Alcohol Crossmatch 12/13/19 12/13/19 12/13/19 05:41 07:48 07:48 WBC 38.3 H RBC 2.37 L Hgb 6.3 L Hct 20.9 L MCH 27 L RDW 20.2 H Plt Count 546 H Lymph % (Auto) [place] % (Auto) [place] # Baso # Seg Neutrophils % Seg Neuts % (Manual) 93.0 H Lymphocytes % (Manual) 1.0 L Monocytes % (Manual) Seg Neutrophils # Seg Neutrophils # Man 35.6 H Lymphocytes # (Manual) 0.4 L Monocytes # (Manual) Eosinophils # (Manual) Basophils # (Manual) 0.4 H PT INR APTT ABG pH ABG pO2 ABG HCO3 ABG O2 Saturation ABG Base Excess ABG Hemoglobin Oxyhemoglobin Sodium 152 H Potassium 3.1 L D Chloride 111.9 H Carbon Dioxide 21 L BUN 53 H Creatinine 1.9 H Glucose 141 H POC Glucose 128 H Lactic Acid Calcium Ionized Calcium Phosphorus Magnesium Total Bilirubin AST ALT Alkaline Phosphatase 316 H Ammonia Total Creatine Kinase CK-MB (CK-2) CK-MB (CK-2) Rel Index Total Protein Albumin 2.4 L Urine WBC (Auto) Vancomycin Trough Salicylates Acetaminophen Plasma/Serum Alcohol Crossmatch 12/13/19 12/13/19 12/14/19 18:17 23:19 05:36 WBC RBC Hgb Hct MCH RDW Plt Count Lymph % (Auto) [place] % (Auto) [place] # Baso # Seg Neutrophils % Seg Neuts % (Manual) Lymphocytes % (Manual) Monocytes % (Manual) Seg Neutrophils # Seg Neutrophils # Man Lymphocytes # (Manual) Monocytes # (Manual) Eosinophils # (Manual) Basophils # (Manual) PT INR APTT ABG pH ABG pO2 ABG HCO3 ABG O2 Saturation ABG Base Excess ABG Hemoglobin Oxyhemoglobin Sodium Potassium Chloride Carbon Dioxide BUN Creatinine Glucose POC Glucose 141 H 158 H 182 H Lactic Acid Calcium Ionized Calcium Phosphorus Magnesium Total Bilirubin AST ALT Alkaline Phosphatase Ammonia Total Creatine Kinase CK-MB (CK-2) CK-MB (CK-2) Rel Index Total Protein Albumin Urine WBC (Auto) Vancomycin Trough Salicylates Acetaminophen Plasma/Serum Alcohol Crossmatch 12/14/19 12/14/19 12/14/19 08:48 08:48 10:31 WBC 33.3 H RBC 2.70 L Hgb 7.9 L 8.0 L Hct 25.3 L 24.0 L MCH RDW 19.2 H Plt Count 476 H Lymph % (Auto) [place] % (Auto) [place] # Baso # Seg Neutrophils % Seg Neuts % (Manual) Lymphocytes % (Manual) Monocytes % (Manual) Seg Neutrophils # Seg Neutrophils # Man Lymphocytes # (Manual) Monocytes # (Manual) Eosinophils # (Manual) Basophils # (Manual) PT INR APTT ABG pH ABG pO2 ABG HCO3 ABG O2 Saturation ABG Base Excess ABG Hemoglobin Oxyhemoglobin Sodium 153 H Potassium 2.5 L* Chloride 114.9 H Carbon Dioxide 20 L BUN 38 H Creatinine 1.4 H Glucose 177 H POC Glucose Lactic Acid Calcium Ionized Calcium Phosphorus Magnesium Total Bilirubin AST ALT Alkaline Phosphatase Ammonia Total Creatine Kinase CK-MB (CK-2) CK-MB (CK-2) Rel Index Total Protein Albumin Urine WBC (Auto) Vancomycin Trough Salicylates Acetaminophen Plasma/Serum Alcohol Crossmatch 12/14/19 12/14/19 12/14/19 12:57 16:15 17:50 WBC RBC Hgb Hct MCH RDW Plt Count Lymph % (Auto) [place] % (Auto) [place] # Baso # Seg Neutrophils % Seg Neuts % (Manual) Lymphocytes % (Manual) Monocytes % (Manual) Seg Neutrophils # Seg Neutrophils # Man Lymphocytes # (Manual) Monocytes # (Manual) Eosinophils # (Manual) Basophils # (Manual) PT INR APTT ABG pH ABG pO2 73.6 L ABG HCO3 ABG O2 Saturation ABG Base Excess ABG Hemoglobin 7.6 L Oxyhemoglobin 94.0 L Sodium Potassium Chloride Carbon Dioxide BUN Creatinine Glucose POC Glucose 174 H 150 H Lactic Acid Calcium Ionized Calcium Phosphorus Magnesium Total Bilirubin AST ALT Alkaline Phosphatase Ammonia Total Creatine Kinase CK-MB (CK-2) CK-MB (CK-2) Rel Index Total Protein Albumin Urine WBC (Auto) Vancomycin Trough Salicylates Acetaminophen Plasma/Serum Alcohol Crossmatch 12/15/19 12/15/19 12/15/19 00:28 05:27 07:23 WBC 30.0 H RBC 3.11 L Hgb 8.6 L Hct 27.7 L MCH RDW 20.0 H Plt Count 473 H Lymph % (Auto) [place] % (Auto) [place] # Baso # Seg Neutrophils % Seg Neuts % (Manual) Lymphocytes % (Manual) Monocytes % (Manual) Seg Neutrophils # Seg Neutrophils # Man Lymphocytes # (Manual) Monocytes # (Manual) Eosinophils # (Manual) Basophils # (Manual) PT INR APTT ABG pH ABG pO2 ABG HCO3 ABG O2 Saturation ABG Base Excess ABG Hemoglobin Oxyhemoglobin Sodium Potassium Chloride Carbon Dioxide BUN Creatinine Glucose POC Glucose 167 H 148 H Lactic Acid Calcium Ionized Calcium Phosphorus Magnesium Total Bilirubin AST ALT Alkaline Phosphatase Ammonia Total Creatine Kinase CK-MB (CK-2) CK-MB (CK-2) Rel Index Total Protein Albumin Urine WBC (Auto) Vancomycin Trough Salicylates Acetaminophen Plasma/Serum Alcohol Crossmatch 12/15/19 12/15/19 12/15/19 07:23 12:21 17:41 WBC RBC Hgb Hct MCH RDW Plt Count Lymph % (Auto) [place] % (Auto) [place] # Baso # Seg Neutrophils % Seg Neuts % (Manual) Lymphocytes % (Manual) Monocytes % (Manual) Seg Neutrophils # Seg Neutrophils # Man Lymphocytes # (Manual) Monocytes # (Manual) Eosinophils # (Manual) Basophils # (Manual) PT INR APTT ABG pH ABG pO2 ABG HCO3 ABG O2 Saturation ABG Base Excess ABG Hemoglobin Oxyhemoglobin Sodium 147 H Potassium 3.5 L D Chloride 111.2 H Carbon Dioxide 19 L BUN 29 H Creatinine Glucose 126 H POC Glucose 154 H 144 H Lactic Acid Calcium Ionized Calcium Phosphorus Magnesium Total Bilirubin AST ALT Alkaline Phosphatase Ammonia Total Creatine Kinase CK-MB (CK-2) CK-MB (CK-2) Rel Index Total Protein Albumin Urine WBC (Auto) Vancomycin Trough Salicylates Acetaminophen Plasma/Serum Alcohol Crossmatch 12/16/19 12/16/19 12/16/19 00:22 05:30 05:44 WBC 30.8 H RBC 2.58 L Hgb 7.1 L Hct 22.7 L MCH RDW 19.6 H Plt Count 451 H Lymph % (Auto) [place] % (Auto) [place] # Baso # Seg Neutrophils % Seg Neuts % (Manual) Lymphocytes % (Manual) Monocytes % (Manual) Seg Neutrophils # Seg Neutrophils # Man Lymphocytes # (Manual) Monocytes # (Manual) Eosinophils # (Manual) Basophils # (Manual) PT INR APTT ABG pH ABG pO2 ABG HCO3 ABG O2 Saturation ABG Base Excess ABG Hemoglobin Oxyhemoglobin Sodium Potassium Chloride Carbon Dioxide BUN Creatinine Glucose POC Glucose 139 H 126 H Lactic Acid Calcium Ionized Calcium Phosphorus Magnesium Total Bilirubin AST ALT Alkaline Phosphatase Ammonia Total Creatine Kinase CK-MB (CK-2) CK-MB (CK-2) Rel Index Total Protein Albumin Urine WBC (Auto) Vancomycin Trough Salicylates Acetaminophen Plasma/Serum Alcohol Crossmatch 12/16/19 12/16/19 12/16/19 05:44 11:48 17:37 WBC RBC Hgb Hct MCH RDW Plt Count Lymph % (Auto) [place] % (Auto) [place] # Baso # Seg Neutrophils % Seg Neuts % (Manual) Lymphocytes % (Manual) Monocytes % (Manual) Seg Neutrophils # Seg Neutrophils # Man Lymphocytes # (Manual) Monocytes # (Manual) Eosinophils # (Manual) Basophils # (Manual) PT INR APTT ABG pH ABG pO2 ABG HCO3 ABG O2 Saturation ABG Base Excess ABG Hemoglobin Oxyhemoglobin Sodium Potassium 3.4 L Chloride 109.2 H Carbon Dioxide 19 L BUN 27 H Creatinine Glucose 124 H POC Glucose 125 H 148 H Lactic Acid Calcium Ionized Calcium Phosphorus Magnesium Total Bilirubin AST ALT Alkaline Phosphatase Ammonia Total Creatine Kinase CK-MB (CK-2) CK-MB (CK-2) Rel Index Total Protein Albumin Urine WBC (Auto) Vancomycin Trough Salicylates Acetaminophen Plasma/Serum Alcohol Crossmatch 12/16/19 12/17/19 12/17/19 23:43 05:28 12:47 WBC RBC Hgb Hct MCH RDW Plt Count Lymph % (Auto) [place] % (Auto) [place] # Baso # Seg Neutrophils % Seg Neuts % (Manual) Lymphocytes % (Manual) Monocytes % (Manual) Seg Neutrophils # Seg Neutrophils # Man Lymphocytes # (Manual) Monocytes # (Manual) Eosinophils # (Manual) Basophils # (Manual) PT INR APTT ABG pH ABG pO2 ABG HCO3 ABG O2 Saturation ABG Base Excess ABG Hemoglobin Oxyhemoglobin Sodium Potassium Chloride Carbon Dioxide BUN Creatinine Glucose POC Glucose 142 H 140 H 125 H Lactic Acid Calcium Ionized Calcium Phosphorus Magnesium Total Bilirubin AST ALT Alkaline Phosphatase Ammonia Total Creatine Kinase CK-MB (CK-2) CK-MB (CK-2) Rel Index Total Protein Albumin Urine WBC (Auto) Vancomycin Trough Salicylates Acetaminophen Plasma/Serum Alcohol Crossmatch 12/17/19 12/17/19 12/17/19 17:05 18:00 Unknown WBC RBC Hgb Hct MCH RDW Plt Count Lymph % (Auto) [place] % (Auto) [place] # Baso # Seg Neutrophils % Seg Neuts % (Manual) Lymphocytes % (Manual) Monocytes % (Manual) Seg Neutrophils # Seg Neutrophils # Man Lymphocytes # (Manual) Monocytes # (Manual) Eosinophils # (Manual) Basophils # (Manual) PT INR APTT ABG pH ABG pO2 68.1 L ABG HCO3 ABG O2 Saturation 93.7 L ABG Base Excess ABG Hemoglobin 5.0 L Oxyhemoglobin 91.7 L Sodium Potassium Chloride Carbon Dioxide BUN Creatinine Glucose POC Glucose 140 H Lactic Acid Calcium Ionized Calcium Phosphorus Magnesium Total Bilirubin AST ALT Alkaline Phosphatase Ammonia Total Creatine Kinase CK-MB (CK-2) CK-MB (CK-2) Rel Index Total Protein Albumin Urine WBC (Auto) Vancomycin Trough Salicylates Acetaminophen Plasma/Serum Alcohol Crossmatch 12/18/19 12/18/19 12/18/19 00:16 04:53 04:53 WBC 28.6 H RBC 2.27 L Hgb 6.3 L Hct 19.5 L* MCH RDW 20.0 H Plt Count 497 H Lymph % (Auto) [place] % (Auto) [place] # Baso # Seg Neutrophils % Seg Neuts % (Manual) Lymphocytes % (Manual) Monocytes % (Manual) Seg Neutrophils # Seg Neutrophils # Man Lymphocytes # (Manual) Monocytes # (Manual) Eosinophils # (Manual) Basophils # (Manual) PT INR APTT ABG pH ABG pO2 ABG HCO3 ABG O2 Saturation ABG Base Excess ABG Hemoglobin Oxyhemoglobin Sodium Potassium Chloride 107.9 H Carbon Dioxide 20 L BUN 27 H Creatinine 0.6 L Glucose 116 H POC Glucose 123 H Lactic Acid Calcium Ionized Calcium Phosphorus Magnesium Total Bilirubin AST ALT Alkaline Phosphatase Ammonia Total Creatine Kinase CK-MB (CK-2) CK-MB (CK-2) Rel Index Total Protein Albumin Urine WBC (Auto) Vancomycin Trough Salicylates Acetaminophen Plasma/Serum Alcohol Crossmatch 12/18/19 12/18/19 12/18/19 06:38 11:22 12:08 WBC RBC Hgb Hct MCH RDW Plt Count Lymph % (Auto) [place] % (Auto) [place] # Baso # Seg Neutrophils % Seg Neuts % (Manual) Lymphocytes % (Manual) Monocytes % (Manual) Seg Neutrophils # Seg Neutrophils # Man Lymphocytes # (Manual) Monocytes # (Manual) Eosinophils # (Manual) Basophils # (Manual) PT INR APTT ABG pH ABG pO2 ABG HCO3 ABG O2 Saturation ABG Base Excess ABG Hemoglobin Oxyhemoglobin Sodium Potassium Chloride Carbon Dioxide BUN Creatinine Glucose POC Glucose 120 H 127 H Lactic Acid Calcium Ionized Calcium Phosphorus Magnesium Total Bilirubin AST ALT Alkaline Phosphatase Ammonia Total Creatine Kinase CK-MB (CK-2) CK-MB (CK-2) Rel Index Total Protein Albumin Urine WBC (Auto) Vancomycin Trough Salicylates Acetaminophen Plasma/Serum Alcohol Crossmatch See Detail 12/18/19 12/18/19 12/18/19 14:05 17:49 23:53 WBC RBC Hgb Hct MCH RDW Plt Count Lymph % (Auto) [place] % (Auto) [place] # Baso # Seg Neutrophils % Seg Neuts % (Manual) Lymphocytes % (Manual) Monocytes % (Manual) Seg Neutrophils # Seg Neutrophils # Man Lymphocytes # (Manual) Monocytes # (Manual) Eosinophils # (Manual) Basophils # (Manual) PT INR APTT ABG pH 7.267 L ABG pO2 69.8 L ABG HCO3 ABG O2 Saturation 88.4 L ABG Base Excess ABG Hemoglobin 7.1 L Oxyhemoglobin 86.4 L Sodium Potassium Chloride Carbon Dioxide BUN Creatinine Glucose POC Glucose 157 H 128 H Lactic Acid Calcium Ionized Calcium Phosphorus Magnesium Total Bilirubin AST ALT Alkaline Phosphatase Ammonia Total Creatine Kinase CK-MB (CK-2) CK-MB (CK-2) Rel Index Total Protein Albumin Urine WBC (Auto) Vancomycin Trough Salicylates Acetaminophen Plasma/Serum Alcohol Crossmatch 12/19/19 12/19/19 12/19/19 03:37 03:37 05:25 WBC 31.3 H RBC 2.60 L Hgb 7.6 L Hct 23.0 L MCH RDW 19.4 H Plt Count 530 H Lymph % (Auto) [place] % (Auto) [place] # Baso # Seg Neutrophils % Seg Neuts % (Manual) Lymphocytes % (Manual) Monocytes % (Manual) Seg Neutrophils # Seg Neutrophils # Man Lymphocytes # (Manual) Monocytes # (Manual) Eosinophils # (Manual) Basophils # (Manual) PT INR APTT ABG pH ABG pO2 ABG HCO3 ABG O2 Saturation ABG Base Excess ABG Hemoglobin Oxyhemoglobin Sodium Potassium Chloride Carbon Dioxide 18 L BUN 36 H Creatinine Glucose 111 H POC Glucose 123 H Lactic Acid Calcium Ionized Calcium Phosphorus Magnesium Total Bilirubin AST ALT Alkaline Phosphatase Ammonia Total Creatine Kinase CK-MB (CK-2) CK-MB (CK-2) Rel Index Total Protein Albumin Urine WBC (Auto) Vancomycin Trough Salicylates Acetaminophen Plasma/Serum Alcohol Crossmatch 12/19/19 12/19/19 12/20/19 12:59 18:33 00:00 WBC RBC Hgb Hct MCH RDW Plt Count Lymph % (Auto) [place] % (Auto) [place] # Baso # Seg Neutrophils % Seg Neuts % (Manual) Lymphocytes % (Manual) Monocytes % (Manual) Seg Neutrophils # Seg Neutrophils # Man Lymphocytes # (Manual) Monocytes # (Manual) Eosinophils # (Manual) Basophils # (Manual) PT INR APTT ABG pH ABG pO2 ABG HCO3 ABG O2 Saturation ABG Base Excess ABG Hemoglobin Oxyhemoglobin Sodium Potassium Chloride Carbon Dioxide BUN Creatinine Glucose POC Glucose 130 H 118 H 135 H Lactic Acid Calcium Ionized Calcium Phosphorus Magnesium Total Bilirubin AST ALT Alkaline Phosphatase Ammonia Total Creatine Kinase CK-MB (CK-2) CK-MB (CK-2) Rel Index Total Protein Albumin Urine WBC (Auto) Vancomycin Trough Salicylates Acetaminophen Plasma/Serum Alcohol Crossmatch 12/20/19 12/20/19 12/20/19 05:46 12:31 18:07 WBC RBC Hgb Hct MCH RDW Plt Count Lymph % (Auto) [place] % (Auto) [place] # Baso # Seg Neutrophils % Seg Neuts % (Manual) Lymphocytes % (Manual) Monocytes % (Manual) Seg Neutrophils # Seg Neutrophils # Man Lymphocytes # (Manual) Monocytes # (Manual) Eosinophils # (Manual) Basophils # (Manual) PT INR APTT ABG pH ABG pO2 ABG HCO3 ABG O2 Saturation ABG Base Excess ABG Hemoglobin Oxyhemoglobin Sodium Potassium Chloride Carbon Dioxide BUN Creatinine Glucose POC Glucose 131 H 128 H 134 H Lactic Acid Calcium Ionized Calcium Phosphorus Magnesium Total Bilirubin AST ALT Alkaline Phosphatase Ammonia Total Creatine Kinase CK-MB (CK-2) CK-MB (CK-2) Rel Index Total Protein Albumin Urine WBC (Auto) Vancomycin Trough Salicylates Acetaminophen Plasma/Serum Alcohol Crossmatch 12/21/19 12/21/19 12/21/19 03:28 03:28 07:21 WBC 29.4 H RBC 2.30 L Hgb 6.8 L Hct 20.2 L MCH RDW 20.2 H Plt Count 746 H Lymph % (Auto) [place] % (Auto) [place] # Baso # Seg Neutrophils % Seg Neuts % (Manual) 85.0 H Lymphocytes % (Manual) 8.0 L Monocytes % (Manual) Seg Neutrophils # Seg Neutrophils # Man 25.0 H Lymphocytes # (Manual) Monocytes # (Manual) 1.5 H Eosinophils # (Manual) 0.6 H Basophils # (Manual) PT INR APTT ABG pH ABG pO2 ABG HCO3 ABG O2 Saturation ABG Base Excess ABG Hemoglobin Oxyhemoglobin Sodium Potassium Chloride Carbon Dioxide 17 L BUN 57 H Creatinine 1.4 H D Glucose POC Glucose 124 H Lactic Acid Calcium Ionized Calcium Phosphorus Magnesium Total Bilirubin AST ALT Alkaline Phosphatase Ammonia Total Creatine Kinase CK-MB (CK-2) CK-MB (CK-2) Rel Index Total Protein Albumin Urine WBC (Auto) Vancomycin Trough Salicylates Acetaminophen Plasma/Serum Alcohol Crossmatch 12/21/19 12/21/19 12/21/19 08:56 12:06 14:53 WBC RBC Hgb 7.2 L Hct 22.9 L MCH RDW Plt Count Lymph % (Auto) [place] % (Auto) [place] # Baso # Seg Neutrophils % Seg Neuts % (Manual) Lymphocytes % (Manual) Monocytes % (Manual) Seg Neutrophils # Seg Neutrophils # Man Lymphocytes # (Manual) Monocytes # (Manual) Eosinophils # (Manual) Basophils # (Manual) PT INR APTT ABG pH ABG pO2 ABG HCO3 ABG O2 Saturation ABG Base Excess ABG Hemoglobin Oxyhemoglobin Sodium Potassium Chloride Carbon Dioxide BUN Creatinine Glucose POC Glucose 116 H Lactic Acid Calcium Ionized Calcium Phosphorus Magnesium Total Bilirubin AST ALT Alkaline Phosphatase Ammonia Total Creatine Kinase CK-MB (CK-2) CK-MB (CK-2) Rel Index Total Protein Albumin Urine WBC (Auto) Vancomycin Trough 33.8 H Salicylates Acetaminophen Plasma/Serum Alcohol Crossmatch 12/21/19 12/21/19 12/21/19 14:54 17:27 23:49 WBC RBC Hgb Hct MCH RDW Plt Count Lymph % (Auto) [place] % (Auto) [place] # Baso # Seg Neutrophils % Seg Neuts % (Manual) Lymphocytes % (Manual) Monocytes % (Manual) Seg Neutrophils # Seg Neutrophils # Man Lymphocytes # (Manual) Monocytes # (Manual) Eosinophils # (Manual) Basophils # (Manual) PT INR APTT ABG pH ABG pO2 ABG HCO3 ABG O2 Saturation ABG Base Excess ABG Hemoglobin Oxyhemoglobin Sodium Potassium Chloride Carbon Dioxide BUN Creatinine Glucose POC Glucose 145 H 127 H Lactic Acid Calcium Ionized Calcium Phosphorus Magnesium Total Bilirubin AST ALT Alkaline Phosphatase Ammonia Total Creatine Kinase CK-MB (CK-2) CK-MB (CK-2) Rel Index Total Protein Albumin Urine WBC (Auto) Vancomycin Trough Salicylates Acetaminophen Plasma/Serum Alcohol Crossmatch See Detail 12/22/19 12/22/19 12/22/19 04:43 05:56 08:40 WBC RBC Hgb Hct MCH RDW Plt Count Lymph % (Auto) [place] % (Auto) [place] # Baso # Seg Neutrophils % Seg Neuts % (Manual) Lymphocytes % (Manual) Monocytes % (Manual) Seg Neutrophils # Seg Neutrophils # Man Lymphocytes # (Manual) Monocytes # (Manual) Eosinophils # (Manual) Basophils # (Manual) PT INR APTT ABG pH ABG pO2 75.6 L ABG HCO3 ABG O2 Saturation ABG Base Excess -2.6 L ABG Hemoglobin 6.8 L Oxyhemoglobin 94.6 L Sodium Potassium Chloride Carbon Dioxide 17 L BUN 60 H Creatinine 1.4 H Glucose 126 H POC Glucose 153 H Lactic Acid Calcium Ionized Calcium Phosphorus Magnesium Total Bilirubin AST ALT Alkaline Phosphatase Ammonia Total Creatine Kinase CK-MB (CK-2) CK-MB (CK-2) Rel Index Total Protein Albumin Urine WBC (Auto) Vancomycin Trough Salicylates Acetaminophen Plasma/Serum Alcohol Crossmatch 12/22/19 12/22/19 12/23/19 12:07 17:49 04:30 WBC 22.4 H RBC 2.68 L Hgb 7.6 L Hct 22.9 L MCH RDW 19.9 H Plt Count 998 H Lymph % (Auto) [place] % (Auto) [place] # Baso # Seg Neutrophils % Seg Neuts % (Manual) 88.0 H Lymphocytes % (Manual) 2.0 L Monocytes % (Manual) 9.0 H Seg Neutrophils # Seg Neutrophils # Man 19.7 H Lymphocytes # (Manual) 0.4 L Monocytes # (Manual) 2.0 H Eosinophils # (Manual) Basophils # (Manual) PT INR APTT ABG pH ABG pO2 ABG HCO3 ABG O2 Saturation ABG Base Excess ABG Hemoglobin Oxyhemoglobin Sodium Potassium Chloride Carbon Dioxide BUN Creatinine Glucose POC Glucose 140 H 116 H Lactic Acid Calcium Ionized Calcium Phosphorus Magnesium Total Bilirubin AST ALT Alkaline Phosphatase Ammonia Total Creatine Kinase CK-MB (CK-2) CK-MB (CK-2) Rel Index Total Protein Albumin Urine WBC (Auto) Vancomycin Trough Salicylates Acetaminophen Plasma/Serum Alcohol Crossmatch 12/23/19 12/23/19 12/23/19 04:30 12:00 18:06 WBC RBC Hgb Hct MCH RDW Plt Count Lymph % (Auto) [place] % (Auto) [place] # Baso # Seg Neutrophils % Seg Neuts % (Manual) Lymphocytes % (Manual) Monocytes % (Manual) Seg Neutrophils # Seg Neutrophils # Man Lymphocytes # (Manual) Monocytes # (Manual) Eosinophils # (Manual) Basophils # (Manual) PT INR APTT ABG pH ABG pO2 ABG HCO3 ABG O2 Saturation ABG Base Excess ABG Hemoglobin Oxyhemoglobin Sodium Potassium 5.2 H Chloride Carbon Dioxide 21 L BUN 69 H Creatinine 1.5 H Glucose 117 H POC Glucose 128 H 138 H Lactic Acid Calcium Ionized Calcium Phosphorus Magnesium Total Bilirubin AST ALT Alkaline Phosphatase Ammonia Total Creatine Kinase CK-MB (CK-2) CK-MB (CK-2) Rel Index Total Protein Albumin Urine WBC (Auto) Vancomycin Trough Salicylates Acetaminophen Plasma/Serum Alcohol Crossmatch 12/23/19 12/24/19 12/24/19 23:46 04:31 05:08 WBC RBC Hgb Hct MCH RDW Plt Count Lymph % (Auto) [place] % (Auto) [place] # Baso # Seg Neutrophils % Seg Neuts % (Manual) Lymphocytes % (Manual) Monocytes % (Manual) Seg Neutrophils # Seg Neutrophils # Man Lymphocytes # (Manual) Monocytes # (Manual) Eosinophils # (Manual) Basophils # (Manual) PT INR APTT ABG pH ABG pO2 ABG HCO3 ABG O2 Saturation ABG Base Excess ABG Hemoglobin Oxyhemoglobin Sodium Potassium 5.3 H Chloride 107.6 H Carbon Dioxide 20 L BUN 72 H Creatinine 1.6 H Glucose 120 H POC Glucose 120 H 140 H Lactic Acid Calcium Ionized Calcium Phosphorus Magnesium Total Bilirubin AST ALT Alkaline Phosphatase Ammonia Total Creatine Kinase CK-MB (CK-2) CK-MB (CK-2) Rel Index Total Protein Albumin Urine WBC (Auto) Vancomycin Trough Salicylates Acetaminophen Plasma/Serum Alcohol Crossmatch 12/24/19 12/24/19 12/25/19 11:58 17:49 03:47 WBC 36.2 H RBC 2.92 L Hgb 8.4 L Hct 26.1 L MCH RDW 20.2 H Plt Count 942 H Lymph % (Auto) [place] % (Auto) [place] # Baso # Seg Neutrophils % Seg Neuts % (Manual) 97.5 H Lymphocytes % (Manual) 1.0 L Monocytes % (Manual) Seg Neutrophils # Seg Neutrophils # Man 35.3 H Lymphocytes # (Manual) 0.4 L Monocytes # (Manual) Eosinophils # (Manual) Basophils # (Manual) PT INR APTT ABG pH ABG pO2 ABG HCO3 ABG O2 Saturation ABG Base Excess ABG Hemoglobin Oxyhemoglobin Sodium Potassium Chloride Carbon Dioxide BUN Creatinine Glucose POC Glucose 146 H 131 H Lactic Acid Calcium Ionized Calcium Phosphorus Magnesium Total Bilirubin AST ALT Alkaline Phosphatase Ammonia Total Creatine Kinase CK-MB (CK-2) CK-MB (CK-2) Rel Index Total Protein Albumin Urine WBC (Auto) Vancomycin Trough Salicylates Acetaminophen Plasma/Serum Alcohol Crossmatch 12/25/19 12/25/19 12/25/19 03:47 05:30 12:23 WBC RBC Hgb Hct MCH RDW Plt Count Lymph % (Auto) [place] % (Auto) [place] # Baso # Seg Neutrophils % Seg Neuts % (Manual) Lymphocytes % (Manual) Monocytes % (Manual) Seg Neutrophils # Seg Neutrophils # Man Lymphocytes # (Manual) Monocytes # (Manual) Eosinophils # (Manual) Basophils # (Manual) PT INR APTT ABG pH ABG pO2 ABG HCO3 ABG O2 Saturation ABG Base Excess ABG Hemoglobin Oxyhemoglobin Sodium Potassium Chloride Carbon Dioxide 15 L BUN 70 H Creatinine 1.7 H Glucose 153 H POC Glucose 169 H 135 H Lactic Acid Calcium Ionized Calcium Phosphorus Magnesium Total Bilirubin AST ALT Alkaline Phosphatase Ammonia Total Creatine Kinase CK-MB (CK-2) CK-MB (CK-2) Rel Index Total Protein Albumin Urine WBC (Auto) Vancomycin Trough Salicylates Acetaminophen Plasma/Serum Alcohol Crossmatch 12/25/19 12/25/19 12/26/19 17:37 23:29 09:47 WBC 22.1 H RBC 2.83 L Hgb 7.9 L Hct 25.5 L MCH RDW 20.0 H Plt Count 894 H Lymph % (Auto) [place] % (Auto) [place] # Baso # Seg Neutrophils % Seg Neuts % (Manual) Lymphocytes % (Manual) Monocytes % (Manual) Seg Neutrophils # Seg Neutrophils # Man Lymphocytes # (Manual) Monocytes # (Manual) Eosinophils # (Manual) Basophils # (Manual) PT INR APTT ABG pH ABG pO2 ABG HCO3 ABG O2 Saturation ABG Base Excess ABG Hemoglobin Oxyhemoglobin Sodium Potassium Chloride Carbon Dioxide BUN Creatinine Glucose POC Glucose 120 H 140 H Lactic Acid Calcium Ionized Calcium Phosphorus Magnesium Total Bilirubin AST ALT Alkaline Phosphatase Ammonia Total Creatine Kinase CK-MB (CK-2) CK-MB (CK-2) Rel Index Total Protein Albumin Urine WBC (Auto) Vancomycin Trough Salicylates Acetaminophen Plasma/Serum Alcohol Crossmatch 12/26/19 12/26/19 12/26/19 09:47 11:46 17:52 WBC RBC Hgb Hct MCH RDW Plt Count Lymph % (Auto) [place] % (Auto) [place] # Baso # Seg Neutrophils % Seg Neuts % (Manual) Lymphocytes % (Manual) Monocytes % (Manual) Seg Neutrophils # Seg Neutrophils # Man Lymphocytes # (Manual) Monocytes # (Manual) Eosinophils # (Manual) Basophils # (Manual) PT INR APTT ABG pH ABG pO2 ABG HCO3 ABG O2 Saturation ABG Base Excess ABG Hemoglobin Oxyhemoglobin Sodium Potassium Chloride Carbon Dioxide 18 L BUN 65 H Creatinine 1.4 H Glucose 132 H POC Glucose 110 H 145 H Lactic Acid Calcium Ionized Calcium Phosphorus Magnesium Total Bilirubin AST ALT Alkaline Phosphatase Ammonia Total Creatine Kinase CK-MB (CK-2) CK-MB (CK-2) Rel Index Total Protein Albumin Urine WBC (Auto) Vancomycin Trough Salicylates Acetaminophen Plasma/Serum Alcohol Crossmatch 12/27/19 12/27/19 12/27/19 00:01 03:42 03:42 WBC 18.0 H RBC 2.86 L Hgb 8.0 L Hct 25.2 L MCH RDW 19.2 H Plt Count 873 H Lymph % (Auto) 8.4 L [place] % (Auto) 7.5 H [place] # 1.4 H Baso # 0.2 H Seg Neutrophils % 82.2 H Seg Neuts % (Manual) Lymphocytes % (Manual) Monocytes % (Manual) Seg Neutrophils # 14.8 H Seg Neutrophils # Man Lymphocytes # (Manual) Monocytes # (Manual) Eosinophils # (Manual) Basophils # (Manual) PT INR APTT ABG pH ABG pO2 ABG HCO3 ABG O2 Saturation ABG Base Excess ABG Hemoglobin Oxyhemoglobin Sodium Potassium Chloride Carbon Dioxide BUN 73 H Creatinine 1.4 H Glucose 119 H POC Glucose 124 H Lactic Acid Calcium Ionized Calcium Phosphorus Magnesium Total Bilirubin AST ALT Alkaline Phosphatase Ammonia Total Creatine Kinase CK-MB (CK-2) CK-MB (CK-2) Rel Index Total Protein Albumin Urine WBC (Auto) Vancomycin Trough Salicylates Acetaminophen Plasma/Serum Alcohol Crossmatch 12/27/19 12/27/19 12/27/19 05:45 11:45 17:29 WBC RBC Hgb Hct MCH RDW Plt Count Lymph % (Auto) [place] % (Auto) [place] # Baso # Seg Neutrophils % Seg Neuts % (Manual) Lymphocytes % (Manual) Monocytes % (Manual) Seg Neutrophils # Seg Neutrophils # Man Lymphocytes # (Manual) Monocytes # (Manual) Eosinophils # (Manual) Basophils # (Manual) PT INR APTT ABG pH ABG pO2 ABG HCO3 ABG O2 Saturation ABG Base Excess ABG Hemoglobin Oxyhemoglobin Sodium Potassium Chloride Carbon Dioxide BUN Creatinine Glucose POC Glucose 131 H 123 H 134 H Lactic Acid Calcium Ionized Calcium Phosphorus Magnesium Total Bilirubin AST ALT Alkaline Phosphatase Ammonia Total Creatine Kinase CK-MB (CK-2) CK-MB (CK-2) Rel Index Total Protein Albumin Urine WBC (Auto) Vancomycin Trough Salicylates Acetaminophen Plasma/Serum Alcohol Crossmatch 12/28/19 12/28/19 12/28/19 00:12 05:14 11:53 WBC RBC Hgb Hct MCH RDW Plt Count Lymph % (Auto) [place] % (Auto) [place] # Baso # Seg Neutrophils % Seg Neuts % (Manual) Lymphocytes % (Manual) Monocytes % (Manual) Seg Neutrophils # Seg Neutrophils # Man Lymphocytes # (Manual) Monocytes # (Manual) Eosinophils # (Manual) Basophils # (Manual) PT INR APTT ABG pH ABG pO2 ABG HCO3 ABG O2 Saturation ABG Base Excess ABG Hemoglobin Oxyhemoglobin Sodium Potassium Chloride Carbon Dioxide BUN Creatinine Glucose POC Glucose 138 H 130 H 146 H Lactic Acid Calcium Ionized Calcium Phosphorus Magnesium Total Bilirubin AST ALT Alkaline Phosphatase Ammonia Total Creatine Kinase CK-MB (CK-2) CK-MB (CK-2) Rel Index Total Protein Albumin Urine WBC (Auto) Vancomycin Trough Salicylates Acetaminophen Plasma/Serum Alcohol Crossmatch 12/28/19 12/29/19 12/29/19 17:39 00:01 18:11 WBC RBC Hgb Hct MCH RDW Plt Count Lymph % (Auto) [place] % (Auto) [place] # Baso # Seg Neutrophils % Seg Neuts % (Manual) Lymphocytes % (Manual) Monocytes % (Manual) Seg Neutrophils # Seg Neutrophils # Man Lymphocytes # (Manual) Monocytes # (Manual) Eosinophils # (Manual) Basophils # (Manual) PT INR APTT ABG pH ABG pO2 ABG HCO3 ABG O2 Saturation ABG Base Excess ABG Hemoglobin Oxyhemoglobin Sodium Potassium Chloride Carbon Dioxide BUN Creatinine Glucose POC Glucose 117 H 139 H 130 H Lactic Acid Calcium Ionized Calcium Phosphorus Magnesium Total Bilirubin AST ALT Alkaline Phosphatase Ammonia Total Creatine Kinase CK-MB (CK-2) CK-MB (CK-2) Rel Index Total Protein Albumin Urine WBC (Auto) Vancomycin Trough Salicylates Acetaminophen Plasma/Serum Alcohol Crossmatch 12/29/19 12/30/19 12/30/19 23:09 00:02 01:06 WBC 16.7 H RBC 2.91 L Hgb 8.2 L Hct 25.4 L MCH RDW 18.7 H Plt Count 708 H Lymph % (Auto) 9.4 L [place] % (Auto) [place] # 0.9 H Baso # Seg Neutrophils % 83.5 H Seg Neuts % (Manual) Lymphocytes % (Manual) Monocytes % (Manual) Seg Neutrophils # 14.0 H Seg Neutrophils # Man Lymphocytes # (Manual) Monocytes # (Manual) Eosinophils # (Manual) Basophils # (Manual) PT INR APTT ABG pH ABG pO2 ABG HCO3 ABG O2 Saturation ABG Base Excess ABG Hemoglobin Oxyhemoglobin Sodium Potassium Chloride Carbon Dioxide BUN Creatinine Glucose POC Glucose 120 H 114 H Lactic Acid Calcium Ionized Calcium Phosphorus Magnesium Total Bilirubin AST ALT Alkaline Phosphatase Ammonia Total Creatine Kinase CK-MB (CK-2) CK-MB (CK-2) Rel Index Total Protein Albumin Urine WBC (Auto) Vancomycin Trough Salicylates Acetaminophen Plasma/Serum Alcohol Crossmatch 12/30/19 12/30/19 12/30/19 01:06 04:23 05:18 WBC RBC Hgb Hct MCH RDW Plt Count Lymph % (Auto) [place] % (Auto) [place] # Baso # Seg Neutrophils % Seg Neuts % (Manual) Lymphocytes % (Manual) Monocytes % (Manual) Seg Neutrophils # Seg Neutrophils # Man Lymphocytes # (Manual) Monocytes # (Manual) Eosinophils # (Manual) Basophils # (Manual) PT INR APTT ABG pH ABG pO2 ABG HCO3 ABG O2 Saturation ABG Base Excess ABG Hemoglobin 8.3 L Oxyhemoglobin Sodium Potassium Chloride Carbon Dioxide BUN 70 H Creatinine Glucose 122 H POC Glucose 130 H Lactic Acid Calcium Ionized Calcium Phosphorus Magnesium Total Bilirubin AST ALT Alkaline Phosphatase Ammonia Total Creatine Kinase CK-MB (CK-2) CK-MB (CK-2) Rel Index Total Protein Albumin Urine WBC (Auto) Vancomycin Trough Salicylates Acetaminophen Plasma/Serum Alcohol Crossmatch 12/30/19 12/30/19 12/30/19 05:40 12:17 17:43 WBC RBC Hgb Hct MCH RDW Plt Count Lymph % (Auto) [place] % (Auto) [place] # Baso # Seg Neutrophils % Seg Neuts % (Manual) Lymphocytes % (Manual) Monocytes % (Manual) Seg Neutrophils # Seg Neutrophils # Man Lymphocytes # (Manual) Monocytes # (Manual) Eosinophils # (Manual) Basophils # (Manual) PT INR APTT ABG pH ABG pO2 ABG HCO3 ABG O2 Saturation ABG Base Excess ABG Hemoglobin Oxyhemoglobin Sodium Potassium Chloride Carbon Dioxide BUN Creatinine Glucose POC Glucose 135 H 132 H 118 H Lactic Acid Calcium Ionized Calcium Phosphorus Magnesium Total Bilirubin AST ALT Alkaline Phosphatase Ammonia Total Creatine Kinase CK-MB (CK-2) CK-MB (CK-2) Rel Index Total Protein Albumin Urine WBC (Auto) Vancomycin Trough Salicylates Acetaminophen Plasma/Serum Alcohol Crossmatch 12/30/19 12/31/19 12/31/19 23:29 05:19 17:50 WBC RBC Hgb Hct MCH RDW Plt Count Lymph % (Auto) [place] % (Auto) [place] # Baso # Seg Neutrophils % Seg Neuts % (Manual) Lymphocytes % (Manual) Monocytes % (Manual) Seg Neutrophils # Seg Neutrophils # Man Lymphocytes # (Manual) Monocytes # (Manual) Eosinophils # (Manual) Basophils # (Manual) PT INR APTT ABG pH ABG pO2 ABG HCO3 ABG O2 Saturation ABG Base Excess ABG Hemoglobin Oxyhemoglobin Sodium Potassium Chloride Carbon Dioxide BUN Creatinine Glucose POC Glucose 114 H 109 H 116 H Lactic Acid Calcium Ionized Calcium Phosphorus Magnesium Total Bilirubin AST ALT Alkaline Phosphatase Ammonia Total Creatine Kinase CK-MB (CK-2) CK-MB (CK-2) Rel Index Total Protein Albumin Urine WBC (Auto) Vancomycin Trough Salicylates Acetaminophen Plasma/Serum Alcohol Crossmatch 01/01/20 01/01/20 01/01/20 00:10 05:19 12:02 WBC RBC Hgb Hct MCH RDW Plt Count Lymph % (Auto) [place] % (Auto) [place] # Baso # Seg Neutrophils % Seg Neuts % (Manual) Lymphocytes % (Manual) Monocytes % (Manual) Seg Neutrophils # Seg Neutrophils # Man Lymphocytes # (Manual) Monocytes # (Manual) Eosinophils # (Manual) Basophils # (Manual) PT INR APTT ABG pH ABG pO2 ABG HCO3 ABG O2 Saturation ABG Base Excess ABG Hemoglobin Oxyhemoglobin Sodium Potassium Chloride Carbon Dioxide BUN Creatinine Glucose POC Glucose 131 H 122 H 136 H Lactic Acid Calcium Ionized Calcium Phosphorus Magnesium Total Bilirubin AST ALT Alkaline Phosphatase Ammonia Total Creatine Kinase CK-MB (CK-2) CK-MB (CK-2) Rel Index Total Protein Albumin Urine WBC (Auto) Vancomycin Trough Salicylates Acetaminophen Plasma/Serum Alcohol Crossmatch 01/02/20 01/02/20 01/02/20 00:24 05:36 11:41 WBC RBC Hgb Hct MCH RDW Plt Count Lymph % (Auto) [place] % (Auto) [place] # Baso # Seg Neutrophils % Seg Neuts % (Manual) Lymphocytes % (Manual) Monocytes % (Manual) Seg Neutrophils # Seg Neutrophils # Man Lymphocytes # (Manual) Monocytes # (Manual) Eosinophils # (Manual) Basophils # (Manual) PT INR APTT ABG pH ABG pO2 ABG HCO3 ABG O2 Saturation ABG Base Excess ABG Hemoglobin Oxyhemoglobin Sodium Potassium Chloride Carbon Dioxide BUN Creatinine Glucose POC Glucose 119 H 109 H 125 H Lactic Acid Calcium Ionized Calcium Phosphorus Magnesium Total Bilirubin AST ALT Alkaline Phosphatase Ammonia Total Creatine Kinase CK-MB (CK-2) CK-MB (CK-2) Rel Index Total Protein Albumin Urine WBC (Auto) Vancomycin Trough Salicylates Acetaminophen Plasma/Serum Alcohol Crossmatch 01/02/20 01/03/20 01/03/20 17:49 05:29 12:13 WBC RBC Hgb Hct MCH RDW Plt Count Lymph % (Auto) [place] % (Auto) [place] # Baso # Seg Neutrophils % Seg Neuts % (Manual) Lymphocytes % (Manual) Monocytes % (Manual) Seg Neutrophils # Seg Neutrophils # Man Lymphocytes # (Manual) Monocytes # (Manual) Eosinophils # (Manual) Basophils # (Manual) PT INR APTT ABG pH ABG pO2 ABG HCO3 ABG O2 Saturation ABG Base Excess ABG Hemoglobin Oxyhemoglobin Sodium Potassium Chloride Carbon Dioxide BUN Creatinine Glucose POC Glucose 130 H 132 H 113 H Lactic Acid Calcium Ionized Calcium Phosphorus Magnesium Total Bilirubin AST ALT Alkaline Phosphatase Ammonia Total Creatine Kinase CK-MB (CK-2) CK-MB (CK-2) Rel Index Total Protein Albumin Urine WBC (Auto) Vancomycin Trough Salicylates Acetaminophen Plasma/Serum Alcohol Crossmatch 01/03/20 01/04/20 01/04/20 17:32 00:19 05:26 WBC RBC Hgb Hct MCH RDW Plt Count Lymph % (Auto) [place] % (Auto) [place] # Baso # Seg Neutrophils % Seg Neuts % (Manual) Lymphocytes % (Manual) Monocytes % (Manual) Seg Neutrophils # Seg Neutrophils # Man Lymphocytes # (Manual) Monocytes # (Manual) Eosinophils # (Manual) Basophils # (Manual) PT INR APTT ABG pH ABG pO2 ABG HCO3 ABG O2 Saturation ABG Base Excess ABG Hemoglobin Oxyhemoglobin Sodium Potassium Chloride Carbon Dioxide BUN Creatinine Glucose POC Glucose 127 H 141 H 129 H Lactic Acid Calcium Ionized Calcium Phosphorus Magnesium Total Bilirubin AST ALT Alkaline Phosphatase Ammonia Total Creatine Kinase CK-MB (CK-2) CK-MB (CK-2) Rel Index Total Protein Albumin Urine WBC (Auto) Vancomycin Trough Salicylates Acetaminophen Plasma/Serum Alcohol Crossmatch 01/04/20 01/04/20 01/05/20 11:39 17:29 05:22 WBC RBC Hgb Hct MCH RDW Plt Count Lymph % (Auto) [place] % (Auto) [place] # Baso # Seg Neutrophils % Seg Neuts % (Manual) Lymphocytes % (Manual) Monocytes % (Manual) Seg Neutrophils # Seg Neutrophils # Man Lymphocytes # (Manual) Monocytes # (Manual) Eosinophils # (Manual) Basophils # (Manual) PT INR APTT ABG pH ABG pO2 ABG HCO3 ABG O2 Saturation ABG Base Excess ABG Hemoglobin Oxyhemoglobin Sodium Potassium Chloride Carbon Dioxide BUN Creatinine Glucose POC Glucose 167 H 132 H 121 H Lactic Acid Calcium Ionized Calcium Phosphorus Magnesium Total Bilirubin AST ALT Alkaline Phosphatase Ammonia Total Creatine Kinase CK-MB (CK-2) CK-MB (CK-2) Rel Index Total Protein Albumin Urine WBC (Auto) Vancomycin Trough Salicylates Acetaminophen Plasma/Serum Alcohol Crossmatch 01/05/20 01/05/20 01/05/20 12:25 17:40 18:06 WBC RBC Hgb Hct MCH RDW Plt Count Lymph % (Auto) [place] % (Auto) [place] # Baso # Seg Neutrophils % Seg Neuts % (Manual) Lymphocytes % (Manual) Monocytes % (Manual) Seg Neutrophils # Seg Neutrophils # Man Lymphocytes # (Manual) Monocytes # (Manual) Eosinophils # (Manual) Basophils # (Manual) PT INR APTT ABG pH 7.472 H ABG pO2 99.2 H ABG HCO3 ABG O2 Saturation ABG Base Excess ABG Hemoglobin 7.8 L Oxyhemoglobin Sodium Potassium Chloride Carbon Dioxide BUN Creatinine Glucose POC Glucose 106 H 110 H Lactic Acid Calcium Ionized Calcium Phosphorus Magnesium Total Bilirubin AST ALT Alkaline Phosphatase Ammonia Total Creatine Kinase CK-MB (CK-2) CK-MB (CK-2) Rel Index Total Protein Albumin Urine WBC (Auto) Vancomycin Trough Salicylates Acetaminophen Plasma/Serum Alcohol Crossmatch 01/06/20 01/06/20 01/06/20 00:11 05:16 11:30 WBC RBC Hgb Hct MCH RDW Plt Count Lymph % (Auto) [place] % (Auto) [place] # Baso # Seg Neutrophils % Seg Neuts % (Manual) Lymphocytes % (Manual) Monocytes % (Manual) Seg Neutrophils # Seg Neutrophils # Man Lymphocytes # (Manual) Monocytes # (Manual) Eosinophils # (Manual) Basophils # (Manual) PT INR APTT ABG pH ABG pO2 ABG HCO3 ABG O2 Saturation ABG Base Excess ABG Hemoglobin Oxyhemoglobin Sodium Potassium Chloride Carbon Dioxide BUN Creatinine Glucose POC Glucose 108 H 124 H 125 H Lactic Acid Calcium Ionized Calcium Phosphorus Magnesium Total Bilirubin AST ALT Alkaline Phosphatase Ammonia Total Creatine Kinase CK-MB (CK-2) CK-MB (CK-2) Rel Index Total Protein Albumin Urine WBC (Auto) Vancomycin Trough Salicylates Acetaminophen Plasma/Serum Alcohol Crossmatch 01/06/20 01/06/20 01/07/20 17:53 23:51 04:12 WBC 16.5 H RBC 3.29 L Hgb 9.3 L Hct 28.1 L MCH RDW 18.2 H Plt Count 526 H Lymph % (Auto) 8.4 L [place] % (Auto) [place] # 1.0 H Baso # Seg Neutrophils % 84.4 H Seg Neuts % (Manual) Lymphocytes % (Manual) Monocytes % (Manual) Seg Neutrophils # 13.9 H Seg Neutrophils # Man Lymphocytes # (Manual) Monocytes # (Manual) Eosinophils # (Manual) Basophils # (Manual) PT INR APTT ABG pH ABG pO2 ABG HCO3 ABG O2 Saturation ABG Base Excess ABG Hemoglobin Oxyhemoglobin Sodium Potassium Chloride Carbon Dioxide BUN Creatinine Glucose POC Glucose 166 H 128 H Lactic Acid Calcium Ionized Calcium Phosphorus Magnesium Total Bilirubin AST ALT Alkaline Phosphatase Ammonia Total Creatine Kinase CK-MB (CK-2) CK-MB (CK-2) Rel Index Total Protein Albumin Urine WBC (Auto) Vancomycin Trough Salicylates Acetaminophen Plasma/Serum Alcohol Crossmatch 01/07/20 01/07/20 01/07/20 04:12 04:45 11:51 WBC RBC Hgb Hct MCH RDW Plt Count Lymph % (Auto) [place] % (Auto) [place] # Baso # Seg Neutrophils % Seg Neuts % (Manual) Lymphocytes % (Manual) Monocytes % (Manual) Seg Neutrophils # Seg Neutrophils # Man Lymphocytes # (Manual) Monocytes # (Manual) Eosinophils # (Manual) Basophils # (Manual) PT INR APTT ABG pH ABG pO2 ABG HCO3 ABG O2 Saturation ABG Base Excess ABG Hemoglobin Oxyhemoglobin Sodium 136 L Potassium Chloride Carbon Dioxide 21 L BUN 44 H Creatinine 0.6 L Glucose 124 H POC Glucose 134 H 138 H Lactic Acid Calcium Ionized Calcium Phosphorus Magnesium Total Bilirubin AST ALT Alkaline Phosphatase Ammonia Total Creatine Kinase CK-MB (CK-2) CK-MB (CK-2) Rel Index Total Protein Albumin Urine WBC (Auto) Vancomycin Trough Salicylates Acetaminophen Plasma/Serum Alcohol Crossmatch 01/07/20 01/08/20 01/08/20 17:36 00:33 05:29 WBC RBC Hgb Hct MCH RDW Plt Count Lymph % (Auto) [place] % (Auto) [place] # Baso # Seg Neutrophils % Seg Neuts % (Manual) Lymphocytes % (Manual) Monocytes % (Manual) Seg Neutrophils # Seg Neutrophils # Man Lymphocytes # (Manual) Monocytes # (Manual) Eosinophils # (Manual) Basophils # (Manual) PT INR APTT ABG pH ABG pO2 ABG HCO3 ABG O2 Saturation ABG Base Excess ABG Hemoglobin Oxyhemoglobin Sodium Potassium Chloride Carbon Dioxide BUN Creatinine Glucose POC Glucose 128 H 119 H 124 H Lactic Acid Calcium Ionized Calcium Phosphorus Magnesium Total Bilirubin AST ALT Alkaline Phosphatase Ammonia Total Creatine Kinase CK-MB (CK-2) CK-MB (CK-2) Rel Index Total Protein Albumin Urine WBC (Auto) Vancomycin Trough Salicylates Acetaminophen Plasma/Serum Alcohol Crossmatch 01/08/20 01/08/20 01/08/20 12:51 20:25 23:22 WBC RBC Hgb Hct MCH RDW Plt Count Lymph % (Auto) [place] % (Auto) [place] # Baso # Seg Neutrophils % Seg Neuts % (Manual) Lymphocytes % (Manual) Monocytes % (Manual) Seg Neutrophils # Seg Neutrophils # Man Lymphocytes # (Manual) Monocytes # (Manual) Eosinophils # (Manual) Basophils # (Manual) PT INR APTT ABG pH ABG pO2 132.2 H ABG HCO3 ABG O2 Saturation ABG Base Excess ABG Hemoglobin Oxyhemoglobin Sodium Potassium Chloride Carbon Dioxide BUN Creatinine Glucose POC Glucose 128 H 127 H Lactic Acid Calcium Ionized Calcium Phosphorus Magnesium Total Bilirubin AST ALT Alkaline Phosphatase Ammonia Total Creatine Kinase CK-MB (CK-2) CK-MB (CK-2) Rel Index Total Protein Albumin Urine WBC (Auto) Vancomycin Trough Salicylates Acetaminophen Plasma/Serum Alcohol Crossmatch 01/09/20 01/09/20 01/09/20 05:48 08:51 11:29 WBC RBC Hgb Hct MCH RDW Plt Count Lymph % (Auto) [place] % (Auto) [place] # Baso # Seg Neutrophils % Seg Neuts % (Manual) Lymphocytes % (Manual) Monocytes % (Manual) Seg Neutrophils # Seg Neutrophils # Man Lymphocytes # (Manual) Monocytes # (Manual) Eosinophils # (Manual) Basophils # (Manual) PT INR APTT ABG pH ABG pO2 94.3 H ABG HCO3 ABG O2 Saturation ABG Base Excess ABG Hemoglobin 9.5 L Oxyhemoglobin Sodium Potassium Chloride Carbon Dioxide BUN Creatinine Glucose POC Glucose 120 H 112 H Lactic Acid Calcium Ionized Calcium Phosphorus Magnesium Total Bilirubin AST ALT Alkaline Phosphatase Ammonia Total Creatine Kinase CK-MB (CK-2) CK-MB (CK-2) Rel Index Total Protein Albumin Urine WBC (Auto) Vancomycin Trough Salicylates Acetaminophen Plasma/Serum Alcohol Crossmatch 01/09/20 01/10/20 01/10/20 17:57 05:17 12:28 WBC RBC Hgb Hct MCH RDW Plt Count Lymph % (Auto) [place] % (Auto) [place] # Baso # Seg Neutrophils % Seg Neuts % (Manual) Lymphocytes % (Manual) Monocytes % (Manual) Seg Neutrophils # Seg Neutrophils # Man Lymphocytes # (Manual) Monocytes # (Manual) Eosinophils # (Manual) Basophils # (Manual) PT INR APTT ABG pH ABG pO2 ABG HCO3 ABG O2 Saturation ABG Base Excess ABG Hemoglobin Oxyhemoglobin Sodium Potassium Chloride Carbon Dioxide BUN Creatinine Glucose POC Glucose 122 H 115 H 116 H Lactic Acid Calcium Ionized Calcium Phosphorus Magnesium Total Bilirubin AST ALT Alkaline Phosphatase Ammonia Total Creatine Kinase CK-MB (CK-2) CK-MB (CK-2) Rel Index Total Protein Albumin Urine WBC (Auto) Vancomycin Trough Salicylates Acetaminophen Plasma/Serum Alcohol Crossmatch 01/10/20 01/10/20 01/11/20 18:25 23:47 06:05 WBC RBC Hgb Hct MCH RDW Plt Count Lymph % (Auto) [place] % (Auto) [place] # Baso # Seg Neutrophils % Seg Neuts % (Manual) Lymphocytes % (Manual) Monocytes % (Manual) Seg Neutrophils # Seg Neutrophils # Man Lymphocytes # (Manual) Monocytes # (Manual) Eosinophils # (Manual) Basophils # (Manual) PT INR APTT ABG pH ABG pO2 ABG HCO3 ABG O2 Saturation ABG Base Excess ABG Hemoglobin Oxyhemoglobin Sodium Potassium Chloride Carbon Dioxide BUN Creatinine Glucose POC Glucose 123 H 115 H 151 H Lactic Acid Calcium Ionized Calcium Phosphorus Magnesium Total Bilirubin AST ALT Alkaline Phosphatase Ammonia Total Creatine Kinase CK-MB (CK-2) CK-MB (CK-2) Rel Index Total Protein Albumin Urine WBC (Auto) Vancomycin Trough Salicylates Acetaminophen Plasma/Serum Alcohol Crossmatch 01/11/20 01/11/20 01/11/20 07:00 07:00 12:27 WBC 11.8 H RBC 3.40 L Hgb 9.4 L Hct 29.3 L MCH RDW 18.1 H Plt Count 549 H Lymph % (Auto) [place] % (Auto) 9.1 H [place] # 1.1 H Baso # Seg Neutrophils % 73.3 H Seg Neuts % (Manual) Lymphocytes % (Manual) Monocytes % (Manual) Seg Neutrophils # 8.7 H Seg Neutrophils # Man Lymphocytes # (Manual) Monocytes # (Manual) Eosinophils # (Manual) Basophils # (Manual) PT INR APTT ABG pH ABG pO2 ABG HCO3 ABG O2 Saturation ABG Base Excess ABG Hemoglobin Oxyhemoglobin Sodium 134 L Potassium Chloride 97.7 L Carbon Dioxide 21 L BUN 38 H Creatinine 0.5 L Glucose 168 H POC Glucose 117 H Lactic Acid Calcium 10.5 H Ionized Calcium Phosphorus Magnesium Total Bilirubin AST ALT Alkaline Phosphatase Ammonia Total Creatine Kinase CK-MB (CK-2) CK-MB (CK-2) Rel Index Total Protein Albumin Urine WBC (Auto) Vancomycin Trough Salicylates Acetaminophen Plasma/Serum Alcohol Crossmatch 01/11/20 01/12/20 01/12/20 18:19 00:53 05:24 WBC RBC Hgb Hct MCH RDW Plt Count Lymph % (Auto) [place] % (Auto) [place] # Baso # Seg Neutrophils % Seg Neuts % (Manual) Lymphocytes % (Manual) Monocytes % (Manual) Seg Neutrophils # Seg Neutrophils # Man Lymphocytes # (Manual) Monocytes # (Manual) Eosinophils # (Manual) Basophils # (Manual) PT INR APTT ABG pH ABG pO2 ABG HCO3 ABG O2 Saturation ABG Base Excess ABG Hemoglobin Oxyhemoglobin Sodium Potassium Chloride Carbon Dioxide BUN Creatinine Glucose POC Glucose 126 H 126 H 128 H Lactic Acid Calcium Ionized Calcium Phosphorus Magnesium Total Bilirubin AST ALT Alkaline Phosphatase Ammonia Total Creatine Kinase CK-MB (CK-2) CK-MB (CK-2) Rel Index Total Protein Albumin Urine WBC (Auto) Vancomycin Trough Salicylates Acetaminophen Plasma/Serum Alcohol Crossmatch 01/12/20 01/12/2001/12/20 13:39 18:02 00:27 WBC RBC Hgb Hct MCH RDW Plt Count Lymph % (Auto) [place] % (Auto) [place] # Baso # Seg Neutrophils % Seg Neuts % (Manual) Lymphocytes % (Manual) Monocytes % (Manual) Seg Neutrophils # Seg Neutrophils # Man Lymphocytes # (Manual) Monocytes # (Manual) Eosinophils # (Manual) Basophils # (Manual) PT INR APTT ABG pH ABG pO2 ABG HCO3 ABG O2 Saturation ABG Base Excess ABG Hemoglobin Oxyhemoglobin Sodium Potassium Chloride Carbon Dioxide BUN Creatinine Glucose POC Glucose 146 H 125 H 131 H Lactic Acid Calcium Ionized Calcium Phosphorus Magnesium Total Bilirubin AST ALT Alkaline Phosphatase Ammonia Total Creatine Kinase CK-MB (CK-2) CK-MB (CK-2) Rel Index Total Protein Albumin Urine WBC (Auto) Vancomycin Trough Salicylates Acetaminophen Plasma/Serum Alcohol Crossmatch 01/13/20 01/13/20 01/13/20 05:44 11:54 17:18 WBC RBC Hgb Hct MCH RDW Plt Count Lymph % (Auto) [place] % (Auto) [place] # Baso # Seg Neutrophils % Seg Neuts % (Manual) Lymphocytes % (Manual) Monocytes % (Manual) Seg Neutrophils # Seg Neutrophils # Man Lymphocytes # (Manual) Monocytes # (Manual) Eosinophils # (Manual) Basophils # (Manual) PT INR APTT ABG pH ABG pO2 ABG HCO3 ABG O2 Saturation ABG Base Excess ABG Hemoglobin Oxyhemoglobin Sodium Potassium Chloride Carbon Dioxide BUN Creatinine Glucose POC Glucose 148 H 140 H 130 H Lactic Acid Calcium Ionized Calcium Phosphorus Magnesium Total Bilirubin AST ALT Alkaline Phosphatase Ammonia Total Creatine Kinase CK-MB (CK-2) CK-MB (CK-2) Rel Index Total Protein Albumin Urine WBC (Auto) Vancomycin Trough Salicylates Acetaminophen Plasma/Serum Alcohol Crossmatch 01/14/20 01/14/20 01/14/20 00:16 05:45 12:19 WBC RBC Hgb Hct MCH RDW Plt Count Lymph % (Auto) [place] % (Auto) [place] # Baso # Seg Neutrophils % Seg Neuts % (Manual) Lymphocytes % (Manual) Monocytes % (Manual) Seg Neutrophils # Seg Neutrophils # Man Lymphocytes # (Manual) Monocytes # (Manual) Eosinophils # (Manual) Basophils # (Manual) PT INR APTT ABG pH ABG pO2 ABG HCO3 ABG O2 Saturation ABG Base Excess ABG Hemoglobin Oxyhemoglobin Sodium Potassium Chloride Carbon Dioxide BUN Creatinine Glucose POC Glucose 125 H 146 H 147 H Lactic Acid Calcium Ionized Calcium Phosphorus Magnesium Total Bilirubin AST ALT Alkaline Phosphatase Ammonia Total Creatine Kinase CK-MB (CK-2) CK-MB (CK-2) Rel Index Total Protein Albumin Urine WBC (Auto) Vancomycin Trough Salicylates Acetaminophen Plasma/Serum Alcohol Crossmatch 01/14/20 01/14/20 01/15/20 18:10 23:54 05:14 WBC RBC Hgb Hct MCH RDW Plt Count Lymph % (Auto) [place] % (Auto) [place] # Baso # Seg Neutrophils % Seg Neuts % (Manual) Lymphocytes % (Manual) Monocytes % (Manual) Seg Neutrophils # Seg Neutrophils # Man Lymphocytes # (Manual) Monocytes # (Manual) Eosinophils # (Manual) Basophils # (Manual) PT INR APTT ABG pH ABG pO2 ABG HCO3 ABG O2 Saturation ABG Base Excess ABG Hemoglobin Oxyhemoglobin Sodium Potassium Chloride Carbon Dioxide BUN Creatinine Glucose POC Glucose 136 H 109 H 111 H Lactic Acid Calcium Ionized Calcium Phosphorus Magnesium Total Bilirubin AST ALT Alkaline Phosphatase Ammonia Total Creatine Kinase CK-MB (CK-2) CK-MB (CK-2) Rel Index Total Protein Albumin Urine WBC (Auto) Vancomycin Trough Salicylates Acetaminophen Plasma/Serum Alcohol Crossmatch 01/15/20 01/15/20 01/16/20 12:34 23:25 05:06 WBC RBC Hgb Hct MCH RDW Plt Count Lymph % (Auto) [place] % (Auto) [place] # Baso # Seg Neutrophils % Seg Neuts % (Manual) Lymphocytes % (Manual) Monocytes % (Manual) Seg Neutrophils # Seg Neutrophils # Man Lymphocytes # (Manual) Monocytes # (Manual) Eosinophils # (Manual) Basophils # (Manual) PT INR APTT ABG pH ABG pO2 ABG HCO3 ABG O2 Saturation ABG Base Excess ABG Hemoglobin Oxyhemoglobin Sodium Potassium Chloride Carbon Dioxide BUN Creatinine Glucose POC Glucose 131 H 120 H 121 H Lactic Acid Calcium Ionized Calcium Phosphorus Magnesium Total Bilirubin AST ALT Alkaline Phosphatase Ammonia Total Creatine Kinase CK-MB (CK-2) CK-MB (CK-2) Rel Index Total Protein Albumin Urine WBC (Auto) Vancomycin Trough Salicylates Acetaminophen Plasma/Serum Alcohol Crossmatch 01/16/20 01/16/20 01/17/20 12:15 23:46 05:32 WBC 13.6 H RBC 3.27 L Hgb 9.3 L Hct 28.5 L MCH RDW 17.0 H Plt Count 490 H Lymph % (Auto) 13.1 L [place] % (Auto) [place] # 1.0 H Baso # Seg Neutrophils % 77.5 H Seg Neuts % (Manual) Lymphocytes % (Manual) Monocytes % (Manual) Seg Neutrophils # 10.5 H Seg Neutrophils # Man Lymphocytes # (Manual) Monocytes # (Manual) Eosinophils # (Manual) Basophils # (Manual) PT INR APTT ABG pH ABG pO2 ABG HCO3 ABG O2 Saturation ABG Base Excess ABG Hemoglobin Oxyhemoglobin Sodium Potassium Chloride Carbon Dioxide BUN Creatinine Glucose POC Glucose 152 H 107 H Lactic Acid Calcium Ionized Calcium Phosphorus Magnesium Total Bilirubin AST ALT Alkaline Phosphatase Ammonia Total Creatine Kinase CK-MB (CK-2) CK-MB (CK-2) Rel Index Total Protein Albumin Urine WBC (Auto) Vancomycin Trough Salicylates Acetaminophen Plasma/Serum Alcohol Crossmatch 01/17/20 01/17/20 01/17/20 06:47 12:16 17:21 WBC RBC Hgb Hct MCH RDW Plt Count Lymph % (Auto) [place] % (Auto) [place] # Baso # Seg Neutrophils % Seg Neuts % (Manual) Lymphocytes % (Manual) Monocytes % (Manual) Seg Neutrophils # Seg Neutrophils # Man Lymphocytes # (Manual) Monocytes # (Manual) Eosinophils # (Manual) Basophils # (Manual) PT INR APTT ABG pH ABG pO2 ABG HCO3 ABG O2 Saturation ABG Base Excess ABG Hemoglobin Oxyhemoglobin Sodium Potassium Chloride Carbon Dioxide BUN Creatinine Glucose POC Glucose 112 H 145 H 150 H Lactic Acid Calcium Ionized Calcium Phosphorus Magnesium Total Bilirubin AST ALT Alkaline Phosphatase Ammonia Total Creatine Kinase CK-MB (CK-2) CK-MB (CK-2) Rel Index Total Protein Albumin Urine WBC (Auto) Vancomycin Trough Salicylates Acetaminophen Plasma/Serum Alcohol Crossmatch 01/17/20 01/18/20 01/18/20 23:34 05:47 12:43 WBC RBC Hgb Hct MCH RDW Plt Count Lymph % (Auto) [place] % (Auto) [place] # Baso # Seg Neutrophils % Seg Neuts % (Manual) Lymphocytes % (Manual) Monocytes % (Manual) Seg Neutrophils # Seg Neutrophils # Man Lymphocytes # (Manual) Monocytes # (Manual) Eosinophils # (Manual) Basophils # (Manual) PT INR APTT ABG pH ABG pO2 ABG HCO3 ABG O2 Saturation ABG Base Excess ABG Hemoglobin Oxyhemoglobin Sodium Potassium Chloride Carbon Dioxide BUN Creatinine Glucose POC Glucose 160 H 130 H 124 H Lactic Acid Calcium Ionized Calcium Phosphorus Magnesium Total Bilirubin AST ALT Alkaline Phosphatase Ammonia Total Creatine Kinase CK-MB (CK-2) CK-MB (CK-2) Rel Index Total Protein Albumin Urine WBC (Auto) Vancomycin Trough Salicylates Acetaminophen Plasma/Serum Alcohol Crossmatch 01/18/20 01/19/20 01/19/20 18:26 00:14 06:24 WBC RBC Hgb Hct MCH RDW Plt Count Lymph % (Auto) [place] % (Auto) [place] # Baso # Seg Neutrophils % Seg Neuts % (Manual) Lymphocytes % (Manual) Monocytes % (Manual) Seg Neutrophils # Seg Neutrophils # Man Lymphocytes # (Manual) Monocytes # (Manual) Eosinophils # (Manual) Basophils # (Manual) PT INR APTT ABG pH ABG pO2 ABG HCO3 ABG O2 Saturation ABG Base Excess ABG Hemoglobin Oxyhemoglobin Sodium Potassium Chloride Carbon Dioxide BUN Creatinine Glucose POC Glucose 119 H 114 H 144 H Lactic Acid Calcium Ionized Calcium Phosphorus Magnesium Total Bilirubin AST ALT Alkaline Phosphatase Ammonia Total Creatine Kinase CK-MB (CK-2) CK-MB (CK-2) Rel Index Total Protein Albumin Urine WBC (Auto) Vancomycin Trough Salicylates Acetaminophen Plasma/Serum Alcohol Crossmatch 01/19/20 01/19/20 01/20/20 12:24 17:50 12:06 WBC RBC Hgb Hct MCH RDW Plt Count Lymph % (Auto) [place] % (Auto) [place] # Baso # Seg Neutrophils % Seg Neuts % (Manual) Lymphocytes % (Manual) Monocytes % (Manual) Seg Neutrophils # Seg Neutrophils # Man Lymphocytes # (Manual) Monocytes # (Manual) Eosinophils # (Manual) Basophils # (Manual) PT INR APTT ABG pH ABG pO2 ABG HCO3 ABG O2 Saturation ABG Base Excess ABG Hemoglobin Oxyhemoglobin Sodium Potassium Chloride Carbon Dioxide BUN Creatinine Glucose POC Glucose 132 H 144 H 135 H Lactic Acid Calcium Ionized Calcium Phosphorus Magnesium Total Bilirubin AST ALT Alkaline Phosphatase Ammonia Total Creatine Kinase CK-MB (CK-2) CK-MB (CK-2) Rel Index Total Protein Albumin Urine WBC (Auto) Vancomycin Trough Salicylates Acetaminophen Plasma/Serum Alcohol Crossmatch 01/21/20 01/21/20 01/21/20 05:46 13:02 23:49 WBC RBC Hgb Hct MCH RDW Plt Count Lymph % (Auto) [place] % (Auto) [place] # Baso # Seg Neutrophils % Seg Neuts % (Manual) Lymphocytes % (Manual) Monocytes % (Manual) Seg Neutrophils # Seg Neutrophils # Man Lymphocytes # (Manual) Monocytes # (Manual) Eosinophils # (Manual) Basophils # (Manual) PT INR APTT ABG pH ABG pO2 ABG HCO3 ABG O2 Saturation ABG Base Excess ABG Hemoglobin Oxyhemoglobin Sodium Potassium Chloride Carbon Dioxide BUN Creatinine Glucose POC Glucose 114 H 136 H 120 H Lactic Acid Calcium Ionized Calcium Phosphorus Magnesium Total Bilirubin AST ALT Alkaline Phosphatase Ammonia Total Creatine Kinase CK-MB (CK-2) CK-MB (CK-2) Rel Index Total Protein Albumin Urine WBC (Auto) Vancomycin Trough Salicylates Acetaminophen Plasma/Serum Alcohol Crossmatch 01/22/20 01/22/20 01/22/20 05:41 11:44 16:31 WBC RBC Hgb Hct MCH RDW Plt Count Lymph % (Auto) [place] % (Auto) [place] # Baso # Seg Neutrophils % Seg Neuts % (Manual) Lymphocytes % (Manual) Monocytes % (Manual) Seg Neutrophils # Seg Neutrophils # Man Lymphocytes # (Manual) Monocytes # (Manual) Eosinophils # (Manual) Basophils # (Manual) PT INR APTT ABG pH ABG pO2 ABG HCO3 ABG O2 Saturation ABG Base Excess ABG Hemoglobin Oxyhemoglobin Sodium Potassium Chloride Carbon Dioxide BUN Creatinine Glucose POC Glucose 124 H 173 H 111 H Lactic Acid Calcium Ionized Calcium Phosphorus Magnesium Total Bilirubin AST ALT Alkaline Phosphatase Ammonia Total Creatine Kinase CK-MB (CK-2) CK-MB (CK-2) Rel Index Total Protein Albumin Urine WBC (Auto) Vancomycin Trough Salicylates Acetaminophen Plasma/Serum Alcohol Crossmatch 01/22/20 01/23/20 01/23/20 23:25 05:15 12:15 WBC RBC Hgb Hct MCH RDW Plt Count Lymph % (Auto) [place] % (Auto) [place] # Baso # Seg Neutrophils % Seg Neuts % (Manual) Lymphocytes % (Manual) Monocytes % (Manual) Seg Neutrophils # Seg Neutrophils # Man Lymphocytes # (Manual) Monocytes # (Manual) Eosinophils # (Manual) Basophils # (Manual) PT INR APTT ABG pH ABG pO2 ABG HCO3 ABG O2 Saturation ABG Base Excess ABG Hemoglobin Oxyhemoglobin Sodium Potassium Chloride Carbon Dioxide BUN Creatinine Glucose POC Glucose 134 H 117 H 129 H Lactic Acid Calcium Ionized Calcium Phosphorus Magnesium Total Bilirubin AST ALT Alkaline Phosphatase Ammonia Total Creatine Kinase CK-MB (CK-2) CK-MB (CK-2) Rel Index Total Protein Albumin Urine WBC (Auto) Vancomycin Trough Salicylates Acetaminophen Plasma/Serum Alcohol Crossmatch 01/23/20 01/23/20 01/23/20 16:58 21:17 23:47 WBC RBC Hgb Hct MCH RDW Plt Count Lymph % (Auto) [place] % (Auto) [place] # Baso # Seg Neutrophils % Seg Neuts % (Manual) Lymphocytes % (Manual) Monocytes % (Manual) Seg Neutrophils # Seg Neutrophils # Man Lymphocytes # (Manual) Monocytes # (Manual) Eosinophils # (Manual) Basophils # (Manual) PT INR APTT ABG pH ABG pO2 ABG HCO3 ABG O2 Saturation ABG Base Excess ABG Hemoglobin Oxyhemoglobin Sodium Potassium Chloride Carbon Dioxide BUN Creatinine Glucose POC Glucose 156 H 185 H 156 H Lactic Acid Calcium Ionized Calcium Phosphorus Magnesium Total Bilirubin AST ALT Alkaline Phosphatase Ammonia Total Creatine Kinase CK-MB (CK-2) CK-MB (CK-2) Rel Index Total Protein Albumin Urine WBC (Auto) Vancomycin Trough Salicylates Acetaminophen Plasma/Serum Alcohol Crossmatch 01/24/20 01/24/20 01/24/20 04:47 04:47 05:59 WBC 17.8 H RBC 3.60 L Hgb Hct MCH RDW 16.2 H Plt Count 688 H Lymph % (Auto) 11.8 L [place] % (Auto) 7.5 H [place] # 1.3 H Baso # Seg Neutrophils % 79.9 H Seg Neuts % (Manual) Lymphocytes % (Manual) Monocytes % (Manual) Seg Neutrophils # 14.2 H Seg Neutrophils # Man Lymphocytes # (Manual) Monocytes # (Manual) Eosinophils # (Manual) Basophils # (Manual) PT INR APTT ABG pH ABG pO2 ABG HCO3 ABG O2 Saturation ABG Base Excess ABG Hemoglobin Oxyhemoglobin Sodium 131 L Potassium Chloride 91.2 L Carbon Dioxide BUN 22 H Creatinine 0.3 L Glucose 123 H POC Glucose 147 H Lactic Acid Calcium 10.9 H Ionized Calcium Phosphorus Magnesium Total Bilirubin AST ALT Alkaline Phosphatase Ammonia Total Creatine Kinase CK-MB (CK-2) CK-MB (CK-2) Rel Index Total Protein Albumin Urine WBC (Auto) Vancomycin Trough Salicylates Acetaminophen Plasma/Serum Alcohol Crossmatch 01/24/20 01/24/20 01/25/20 11:47 16:45 00:18 WBC RBC Hgb Hct MCH RDW Plt Count Lymph % (Auto) [place] % (Auto) [place] # Baso # Seg Neutrophils % Seg Neuts % (Manual) Lymphocytes % (Manual) Monocytes % (Manual) Seg Neutrophils # Seg Neutrophils # Man Lymphocytes # (Manual) Monocytes # (Manual) Eosinophils # (Manual) Basophils # (Manual) PT INR APTT ABG pH ABG pO2 ABG HCO3 ABG O2 Saturation ABG Base Excess ABG Hemoglobin Oxyhemoglobin Sodium Potassium Chloride Carbon Dioxide BUN Creatinine Glucose POC Glucose 114 H 108 H 119 H Lactic Acid Calcium Ionized Calcium Phosphorus Magnesium Total Bilirubin AST ALT Alkaline Phosphatase Ammonia Total Creatine Kinase CK-MB (CK-2) CK-MB (CK-2) Rel Index Total Protein Albumin Urine WBC (Auto) Vancomycin Trough Salicylates Acetaminophen Plasma/Serum Alcohol Crossmatch 01/25/20 01/25/20 01/25/20 07:18 11:58 16:56 WBC RBC Hgb Hct MCH RDW Plt Count Lymph % (Auto) [place] % (Auto) [place] # Baso # Seg Neutrophils % Seg Neuts % (Manual) Lymphocytes % (Manual) Monocytes % (Manual) Seg Neutrophils # Seg Neutrophils # Man Lymphocytes # (Manual) Monocytes # (Manual) Eosinophils # (Manual) Basophils # (Manual) PT INR APTT ABG pH ABG pO2 ABG HCO3 ABG O2 Saturation ABG Base Excess ABG Hemoglobin Oxyhemoglobin Sodium Potassium Chloride Carbon Dioxide BUN Creatinine Glucose POC Glucose 136 H 136 H 147 H Lactic Acid Calcium Ionized Calcium Phosphorus Magnesium Total Bilirubin AST ALT Alkaline Phosphatase Ammonia Total Creatine Kinase CK-MB (CK-2) CK-MB (CK-2) Rel Index Total Protein Albumin Urine WBC (Auto) Vancomycin Trough Salicylates Acetaminophen Plasma/Serum Alcohol Crossmatch 01/26/20 01/26/20 01/26/20 00:29 05:59 05:59 WBC 12.8 H RBC Hgb Hct MCH RDW 16.4 H Plt Count 743 H Lymph % (Auto) [place] % (Auto) [place] # 0.9 H Baso # Seg Neutrophils % 76.2 H Seg Neuts % (Manual) Lymphocytes % (Manual) Monocytes % (Manual) Seg Neutrophils # 9.8 H Seg Neutrophils # Man Lymphocytes # (Manual) Monocytes # (Manual) Eosinophils # (Manual) Basophils # (Manual) PT INR APTT ABG pH ABG pO2 ABG HCO3 ABG O2 Saturation ABG Base Excess ABG Hemoglobin Oxyhemoglobin Sodium 132 L Potassium Chloride 90.9 L Carbon Dioxide BUN 23 H Creatinine 0.4 L Glucose 122 H POC Glucose 107 H Lactic Acid Calcium 11.0 H Ionized Calcium Phosphorus Magnesium Total Bilirubin AST ALT Alkaline Phosphatase Ammonia Total Creatine Kinase CK-MB (CK-2) CK-MB (CK-2) Rel Index Total Protein Albumin Urine WBC (Auto) Vancomycin Trough Salicylates Acetaminophen Plasma/Serum Alcohol Crossmatch 01/26/20 06:27 WBC RBC Hgb Hct MCH RDW Plt Count Lymph % (Auto) [place] % (Auto) [place] # Baso # Seg Neutrophils % Seg Neuts % (Manual) Lymphocytes % (Manual) Monocytes % (Manual) Seg Neutrophils # Seg Neutrophils # Man Lymphocytes # (Manual) Monocytes # (Manual) Eosinophils # (Manual) Basophils # (Manual) PT INR APTT ABG pH ABG pO2 ABG HCO3 ABG O2 Saturation ABG Base Excess ABG Hemoglobin Oxyhemoglobin Sodium Potassium Chloride Carbon Dioxide BUN Creatinine Glucose POC Glucose 132 H Lactic Acid Calcium Ionized Calcium Phosphorus Magnesium Total Bilirubin AST ALT Alkaline Phosphatase Ammonia Total Creatine Kinase CK-MB (CK-2) CK-MB (CK-2) Rel Index Total Protein Albumin Urine WBC (Auto) Vancomycin Trough Salicylates Acetaminophen Plasma/Serum Alcohol Crossmatch Allied health notes reviewed: nursing
[2020-01-26] MEDS: QUEtiapine 100 MG TAB FEEDTUBE SCH (22:31)
[2020-01-27] MEDS: LEVALBUTEROL 0.63 MG/3 ML NEBU IH SCH ×4 (04:05→20:00)
[2020-01-27] MEDS: MIRTAZAPINE 30 MG TAB PO SCH (10:15)
[2020-01-27] MEDS: levETIRAcetam 500 MG/5 ML ORAL LIQD PO SCH ×2 (10:15→23:14)
[2020-01-27] MEDS: SERTRALINE 50 MG TAB PO SCH (10:15)
[2020-01-27] MEDS: TAMSULOSIN 0.4 MG CAP PO SCH (10:15)
[2020-01-27] MEDS: hydrOXYzine PAMOATE 25 MG CAP PO SCH ×2 (10:15→23:14)
[2020-01-27] MEDS: LANSOPRAZOLE 30 MG SOLUTAB FEEDTUBE SCH (10:15)
[2020-01-27] MEDS: GLYCOPYRROLATE 1 MG TAB PO SCH ×3 (10:15→23:14)
[2020-01-27] MEDS: ACETYLCYSTEINE 20% 200 MG/1 ML *FOR INHALATION USE INHALATION SCH (10:19)
--- NOTE | 2020-01-27 11:56 | Progress Note ---
Assessment and Plan Assessment and plan: --Acute Respiratory failure Vent dependent s/p trach and PEG on 12/12 on T-piece CTA was done and negative for PE, Echo diastolic dysfunction Continue supportive care --Anoxic brain injury: suspected CT head: No acute abnormality. EEG ordered showed Generalized slowing. No seizures or epileptiform activity. Neurology evaluated: Patient found to have intact corneal/VOR/cough reflexes, and is withdrawing lower extremities, given that patient had an --Out of hospital cardiac arrest, anoxic brain injury the likelihood of meaningful neurological recovery is low. Minimally communicative --Anemia, microcytic s/p3 units PRBC transfusion, Hb 10.4 --Acute toxic /metabolic encephalopathy Supportive care --Hyperammonemia -resolved Closely monitor electrolytes --Metabolic Acidosis-resolved --ELevated LFTs ; normal range --Leucocytosis with sepsis/improved Source MRSA bacteremia and MSSA pneumonia. Repeat TTE negative for vegetation. Completed 7 days of Ceftriaxone on 11/29/2019. Treated with Abx vancomycin 1 gm IV q 12 hour total 2 week till 12/30/2019 --MSSA pneumonia: Status post vancomycin till 12/30/2019 --ALcohol USe Disorder --Severe hypokalemia: Resolved Closely monitor electrolytes --Seizure disorder: On Keppra --H. Influenzae, tracheobronchitis, treated with abx DNR CODE STATUS Disposition: prognosis guarded. Family okay for DNR, Awaiting placement Patient is stable for discharge Pending subacute rehab placement Disposition; clinically stable for placement Plan of care reviewed with the patient's nurse History Interval history: Patient seen and examined at the bedside Patient's chart and medications reviewed Clinically no change Status post trach and PEG Anoxic brain injury Noncommunicative Vital signs reviewed Hospitalist Physical - Constitutional Vitals: Temp Pulse Resp BP Pulse Ox 97.7 F 109 H 18 133/75 96 01/27/20 07:27 01/27/20 10:00 01/27/20 10:00 01/27/20 07:27 01/27/20 10:00 General appearance: Present: no acute distress, cachectic, disheveled, other (Tracheostomy on T-piece) - EENT Eyes: Present: PERRL, EOM intact - Neck Neck: Present: supple, other (Tracheostomy on T-piece) - Respiratory Respiratory: bilateral: diminished, rhonchi, negative: rales, wheezing - Cardiovascular Rhythm: regular Heart Sounds: Present: S1 & S2 - Extremities Extremities: no ischemia, No edema - Abdominal General gastrointestinal: soft, non-tender, non-distended, normal bowel sounds, other (PEG in place) - Integumentary Integumentary: Present: clear, warm - Psychiatric Psychiatric: other (Noncommunicative) - Neurologic Neurologic: other (Noncommunicative) Results - Labs CBC & Chem 7: 01/26/20 05:59 01/26/20 05:59 Labs: Laboratory Last Values WBC 12.8 K/mm3 (4.5-11.0) H 01/26/20 05:59 RBC 3.70 M/mm3 (3.65-5.03) 01/26/20 05:59 Hgb 10.4 gm/dl (10.1-14.3) 01/26/20 05:59 Hct 32.0 % (30.3-42.9) 01/26/20 05:59 MCV 87 fl (79-97) 01/26/20 05:59 MCH 28 pg (28-32) 01/26/20 05:59 MCHC 33 % (30-34) 01/26/20 05:59 RDW 16.4 % (13.2-15.2) H 01/26/20 05:59 Plt Count 743 K/mm3 (140-440) H 01/26/20 05:59 Lymph % (Auto) 14.7 % (13.4-35.0) 01/26/20 05:59 [place] % (Auto) 7.2 % (0.0-7.3) 01/26/20 05:59 Eos % (Auto) 0.9 % (0.0-4.3) 01/26/20 05:59 Baso % (Auto) 1.0 % (0.0-1.8) 01/26/20 05:59 Lymph # 1.9 K/mm3 (1.2-5.4) 01/26/20 05:59 [place] # 0.9 K/mm3 (0.0-0.8) H 01/26/20 05:59 Eos # 0.1 K/mm3 (0.0-0.4) 01/26/20 05:59 Baso # 0.1 K/mm3 (0.0-0.1) 01/26/20 05:59 Add Manual Diff Complete 12/25/19 03:47 Total Counted 200 12/25/19 03:47 Seg Neutrophils % 76.2 % (40.0-70.0) H 01/26/20 05:59 Seg Neuts % (Manual) 97.5 % (40.0-70.0) H 12/25/19 03:47 Band Neutrophils % 0 % 12/25/19 03:47 Lymphocytes % (Manual) 1.0 % (13.4-35.0) L 12/25/19 03:47 Reactive Lymphs % (Man) 0 % 12/25/19 03:47 Monocytes % (Manual) 1.5 % (0.0-7.3) 12/25/19 03:47 Eosinophils % (Manual) 0 % (0.0-4.3) 12/25/19 03:47 Basophils % (Manual) 0 % (0.0-1.8) 12/25/19 03:47 Metamyelocytes % 0 % 12/25/19 03:47 Myelocytes % 0 % 12/25/19 03:47 Promyelocytes % 0 % 12/25/19 03:47 Blast Cells % 0 % 12/25/19 03:47 Nucleated RBC % Not Reportable 12/25/19 03:47 Seg Neutrophils # 9.8 K/mm3 (1.8-7.7) H 01/26/20 05:59 Seg Neutrophils # Man 35.3 K/mm3 (1.8-7.7) H 12/25/19 03:47 Band Neutrophils # 0.0 K/mm3 12/25/19 03:47 Lymphocytes # (Manual) 0.4 K/mm3 (1.2-5.4) L 12/25/19 03:47 Abs React Lymphs (Man) 0.0 K/mm3 12/25/19 03:47 Monocytes # (Manual) 0.5 K/mm3 (0.0-0.8) 12/25/19 03:47 Eosinophils # (Manual) 0.0 K/mm3 (0.0-0.4) 12/25/19 03:47 Basophils # (Manual) 0.0 K/mm3 (0.0-0.1) 12/25/19 03:47 Metamyelocytes # 0.0 K/mm3 12/25/19 03:47 Myelocytes # 0.0 K/mm3 12/25/19 03:47 Promyelocytes # 0.0 K/mm3 12/25/19 03:47 Blast Cells # 0.0 K/mm3 12/25/19 03:47 Pathologist Review 12/13/19 07:48 WBC Morphology Not Reportable 12/25/19 03:47 Hypersegmented Neuts Not Reportable 12/25/19 03:47 Hyposegmented Neuts Not Reportable 12/25/19 03:47 Hypogranular Neuts Not Reportable 12/25/19 03:47 Smudge Cells Not Reportable 12/25/19 03:47 Toxic Granulation Not Reportable 12/25/19 03:47 Toxic Vacuolation Not Reportable 12/25/19 03:47 Dohle Bodies Not Reportable 12/25/19 03:47 Pelger-Huet Anomaly Not Reportable 12/25/19 03:47 Dominique Rods Not Reportable 12/25/19 03:47 Platelet Estimate Consistent w auto 12/25/19 03:47 Clumped Platelets Not Reportable 12/25/19 03:47 Plt Clumps, EDTA Not Reportable 12/25/19 03:47 Large Platelets Not Reportable 12/25/19 03:47 Giant Platelets Not Reportable 12/25/19 03:47 Platelet Satelliting Not Reportable 12/25/19 03:47 Plt Morphology Comment Not Reportable 12/25/19 03:47 RBC Morphology Not Reportable 12/25/19 03:47 Dimorphic RBCs Not Reportable 12/25/19 03:47 Polychromasia Not Reportable 12/25/19 03:47 Hypochromasia Not Reportable 12/25/19 03:47 Poikilocytosis Not Reportable 12/25/19 03:47 Anisocytosis 1+ 12/25/19 03:47 Microcytosis Not Reportable 12/25/19 03:47 Macrocytosis Not Reportable 12/25/19 03:47 Spherocytes Not Reportable 12/25/19 03:47 Pappenheimer Bodies Not Reportable 12/25/19 03:47 Sickle Cells Not Reportable 12/25/19 03:47 Target Cells Not Reportable 12/25/19 03:47 Tear Drop Cells Not Reportable 12/25/19 03:47 Ovalocytes Not Reportable 12/25/19 03:47 Helmet Cells Not Reportable 12/25/19 03:47 [place] Bodies Not Reportable 12/25/19 03:47 Lisman Rings Not Reportable 12/25/19 03:47 Lawrence Cells Not Reportable 12/25/19 03:47 Bite Cells Not Reportable 12/25/19 03:47 Crenated Cell Not Reportable 12/25/19 03:47 Elliptocytes Not Reportable 12/25/19 03:47 Acanthocytes (Spur) Not Reportable 12/25/19 03:47 Rouleaux Not Reportable 12/25/19 03:47 Hemoglobin C Crystals Not Reportable 12/25/19 03:47 Schistocytes Not Reportable 12/25/19 03:47 Malaria parasites Not Reportable 12/25/19 03:47 Gregg Bodies Not Reportable 12/25/19 03:47 Hem Pathologist Commnt No 12/25/19 03:47 PT 17.0 Sec. (12.2-14.9) H 11/23/19 03:47 INR 1.36 (0.87-1.13) H 11/23/19 03:47 APTT 128.2 Sec. (24.2-36.6) H* 11/23/19 03:47 Heparin Anti-Xa Level 0.31 U.I./ml (0.3-0.7) 11/23/19 09:03 ABG pH 7.429 pH Units (7.350-7.450) 01/09/20 08:51 ABG pCO2 39.1 mm Hg 01/09/20 08:51 ABG pO2 94.3 mm Hg (80.0-90.0) H 01/09/20 08:51 ABG HCO3 25.3 mmol/L (20.0-26.0) 01/09/20 08:51 ABG O2 Saturation 97.4 % (95.0-99.0) 01/09/20 08:51 ABG O2 Content 12.9 (0.0-44) 01/09/20 08:51 ABG Base Excess 1.0 mmol/L (-2.0-3.0) 01/09/20 08:51 ABG Hemoglobin 9.5 gm/dl (12.0-16.0) L 01/09/20 08:51 ABG Carboxyhemoglobin 1.3 % (0.0-5.0) 01/09/20 08:51 ABG Methemoglobin 0.4 % (0.0-1.5) 01/09/20 08:51 Oxyhemoglobin 95.7 % (95.0-99.0) 01/09/20 08:51 FiO2 35 % 01/09/20 08:51 Sodium 132 mmol/L (137-145) L 01/26/20 05:59 Potassium 4.7 mmol/L (3.6-5.0) 01/26/20 05:59 Chloride 90.9 mmol/L (98-107) L 01/26/20 05:59 Carbon Dioxide 27 mmol/L (22-30) 01/26/20 05:59 Anion Gap 19 mmol/L 01/26/20 05:59 BUN 23 mg/dL (7-17) H 01/26/20 05:59 Creatinine 0.4 mg/dL (0.7-1.2) L 01/26/20 05:59 Estimated GFR > 60 ml/min 01/26/20 05:59 BUN/Creatinine Ratio 58 % 01/26/20 05:59 Glucose 122 mg/dL (65-100) H 01/26/20 05:59 POC Glucose 119 (70-105) H 01/27/20 11:49 Lactic Acid 1.80 mmol/L (0.7-2.0) 11/25/19 05:05 Calcium 11.0 mg/dL (8.4-10.2) H 01/26/20 05:59 Ionized Calcium 4.5 mg/dL (4.8-5.6) L 11/23/19 06:32 Phosphorus 4.20 mg/dL (2.5-4.5) D 11/28/19 08:59 Magnesium 2.30 mg/dL (1.7-2.3) 11/29/19 13:41 Total Bilirubin 0.40 mg/dL (0.1-1.2) 12/13/19 07:48 AST 27 units/L (5-40) 12/13/19 07:48 ALT 26 units/L (7-56) 12/13/19 07:48 Alkaline Phosphatase 316 units/L (35-129) H 12/13/19 07:48 Ammonia 42.0 umol/L (25-60) 11/29/19 13:41 Total Creatine Kinase 139 units/L (30-135) H 11/22/19 23:27 CK-MB (CK-2) 8.3 ng/mL (0.0-4.0) H 11/22/19 23:27 CK-MB (CK-2) Rel Index 5.9 (0-4) H 11/22/19 23:27 Troponin T < 0.010 ng/mL (0.00-0.029) 11/22/19 23:27 Total Protein 6.8 g/dL (6.3-8.2) 12/13/19 07:48 Albumin 2.4 g/dL (3.9-5) L 12/13/19 07:48 Albumin/Globulin Ratio 0.5 % 12/13/19 07:48 Lipase 18 units/L (13-60) 11/23/19 00:34 Procalcitonin 1.09 ng/mL (<0.15) 11/23/19 04:53 Urine Color Yellow (Yellow) 12/16/19 Unknown Urine Turbidity Slightly-cloudy (Clear) 12/16/19 Unknown Urine pH 5.0 (5.0-7.0) 12/16/19 Unknown Ur Specific [place] 1.018 (1.003-1.030) 12/16/19 Unknown Urine Protein 30 mg/dl mg/dL (Negative) 12/16/19 Unknown Urine Glucose (UA) Neg mg/dL (Negative) 12/16/19 Unknown Urine Ketones Neg mg/dL (Negative) 12/16/19 Unknown Urine Blood Sm (Negative) 12/16/19 Unknown Urine Nitrite Neg (Negative) 12/16/19 Unknown Urine Bilirubin Neg (Negative) 12/16/19 Unknown Urine Urobilinogen < 2.0 mg/dL (<2.0) 12/16/19 Unknown Ur Leukocyte Esterase Neg (Negative) 12/16/19 Unknown Urine WBC (Auto) 6.0 /HPF (0.0-6.0) 12/16/19 Unknown Urine RBC (Auto) 9.0 /HPF (0.0-6.0) 12/16/19 Unknown U Epithel Cells (Auto) < 1.0 /HPF (0-13.0) 12/16/19 Unknown Urine Bacteria (Auto) 2+ /HPF (Negative) 11/22/19 23:17 Hyaline Casts 3 /LPF 12/16/19 Unknown Granular Casts 3 /LPF 12/16/19 Unknown Urine Mucus Few /HPF 12/16/19 Unknown Vancomycin Trough 33.8 ug/mL (5.0-20.0) H 12/21/19 08:56 Random Vancomycin 16.2 ug/mL (0-40.0) 12/24/19 04:31 Salicylates < 0.3 mg/dL (2.8-20.0) L 11/22/19 23:27 Urine Opiates Screen Presumptive negative 11/22/19 23:17 Urine Methadone Screen Presumptive negative 11/22/19 23:17 Acetaminophen < 5.0 ug/mL (10.0-30.0) L 11/22/19 23:27 Ur Barbiturates Screen Presumptive negative 11/22/19 23:17 Ur Phencyclidine Scrn Presumptive negative 11/22/19 23:17 Ur Amphetamines Screen Presumptive negative 11/22/19 23:17 U Benzodiazepines Scrn Presumptive negative 11/22/19 23:17 Urine Cocaine Screen Presumptive negative 11/22/19 23:17 U Marijuana (THC) Screen Presumptive negative 11/22/19 23:17 Drugs of Abuse Note Disclamer 11/22/19 23:17 Plasma/Serum Alcohol 0.08 % (0-0.07) H 11/22/19 23:27 Hepatitis A IgM Ab Non-reactive (NonReactive) 11/23/19 01:19 Hep Bs Antigen Non-reactive (Negative) 11/23/19 01:19 Hep B Core IgM Ab Non-reactive (NonReactive) 11/23/19 01:19 Hepatitis C Antibody Non-reactive (NonReactive) 11/23/19 01:19 Blood Type O POSITIVE 12/21/19 14:54 Antibody Screen Negative 12/21/19 14:54 Crossmatch See Detail 12/21/19 14:54 - Diagnostic Impressions Diagnostic Impressions: Echocardiogram 11/23/19 03:58 Transthoracic Echocardiogram Indication: Cardiac arrest BP: 131/89 HR: 115 Conclusions *The study quality is technically difficult. *Global left ventricular wall motion and contractility are within normal limits. *The estimated ejection fraction is 55-60%. *Abnormal left ventricular diastolic filling is observed, consistent with impaired relaxation. *There is no pericardial effusion. Findings Procedure Info: The study quality is technically difficult. The study was technically limited due to the patient's inability to lay in the left lateral decubitus position. Left Ventricle: The left ventricular chamber size is normal. There is no left ventricular hypertrophy. Global left ventricular wall motion and contractility are within normal limits. Global left ventricular systolic function is normal. The estimated ejection fraction is 55-60%. Abnormal left ventricular diastolic filling is observed, consistent with impaired relaxation. Left Atrium: The left atrial chamber size is normal. Aortic Valve: The aortic valve leaflets are mildly thickened. Mitral Valve: The mitral valve leaflets are mildly thickened. There is no evidence of mitral regurgitation. Tricuspid Valve: The tricuspid valve leaflets are normal. There is trace tricuspid regurgitation. The right ventricular systolic pressure is calculated at 33 mmHg. Pulmonic Valve: The pulmonic valve appears normal. Pericardium: The pericardium appears normal. There is no pericardial effusion. Aorta: The aorta appears normal. Venous: The inferior vena cava appears normal in size. Measurements Chambers 2D Name Value Normal Range IVSd (2D) 0.94 cm (0.6 - 1.1) LVPWd (2D) 0.81 cm (0.6 - 1.1) LVIDd (2D) 3.6 cm (3.7 - 5.6) LVIDs (2D) 2.27 cm (2 - 3.8) LV FS (2D) 36.93 % - EF Teichholz (2D) 67.76 % - Ao root diameter (2D) 3.03 cm (2 - 3.7) Volumes/Mass Name Value Normal Range LA ESV SP 4CH (A/L) 16.89 ml - LA ESV SP 4CH (MOD) 15.52 ml - Diastolic/Systolic Function Name Value Normal Range MV E-wave Vmax 0.55 m/sec - MV deceleration time 200.89 msec - MV A-wave Vmax 0.68 m/sec - MV E:A ratio 0.82 ratio - Aortic Valve Name Value Normal Range AV Vmax 1.1 m/sec - AV VTI 15.9 cm - AV peak gradient 4.86 mmHg - AV mean gradient 2.59 mmHg - LVOT diameter 2 cm - LVOT Vmax 1.03 m/sec - LVOT VTI 15.87 cm - LVOT peak gradient 4.24 mmHg - LVOT mean gradient 2.41 mmHg - SV LVOT 49.77 ml - JOSÉ MIGUEL (continuity Vmax) 2.93 cm2 - JOSÉ MIGUEL (continuity VTI) 3.13 cm2 - Tricuspid Valve Name Value Normal Range TR Vmax 2.74 m/sec - TR peak gradient 303 mmHg - RAP 3 mmHg - RVSP 33 mmHg - IVC diameter 1.77 cm (1.2 - 2.3) Pulmonic Valve/Qp:Qs Name Value Normal Range PV Vmax 0.77 m/sec - PV peak gradient 2.4 mmHg - PV acceleration time 114.18 msec - Echocardiogram Limited Views 12/17/19 14:53 Transthoracic Echocardiogram Indication: R/O Vegetations BP: 144/83 HR: 133 Conclusions *Global left ventricular systolic function is mildly decreased. *The estimated ejection fraction is 45-50%. *A trivial pericardial effusion is visualized. Findings Left Ventricle: The left ventricular chamber size is normal. Global left ventricular systolic function is mildly decreased. The estimated ejection fraction is 45-50%. Left Atrium: The left atrial chamber size is normal. Right Ventricle: The right ventricular cavity size is normal. Right Atrium: The right atrial cavity size is normal. Aortic Valve: The aortic valve is not well visualized. There is no evidence of aortic regurgitation. Mitral Valve: The mitral valve leaflets are mildly thickened. There is trace of mitral regurgitation. Tricuspid Valve: The tricuspid valve leaflets are mildly thickened. There is trace tricuspid regurgitation. The right ventricular systolic pressure is calculated at 29 mmHg. Pulmonic Valve: The pulmonic valve is not well visualized. There is no evidence of pulmonic regurgitation. Pericardium: A trivial pericardial effusion is visualized. Aorta: There is no dilatation of the ascending aorta. There is no dilatation of the aortic root. Venous: The inferior vena cava appears normal in size. There is a greater than 50% respiratory change in the inferior vena cava dimension. Measurements Chambers 2D Name Value Normal Range IVSd (2D) 0.83 cm (0.6 - 1.1) LVPWd (2D) 0.98 cm (0.6 - 1.1) LVIDd (2D) 3.71 cm (3.7 - 5.6) LVIDs (2D) 2.93 cm (2 - 3.8) LV FS (2D) 21.12 % - EF Teichholz (2D) 43.71 % - Ao root diameter (2D) 3.02 cm (2 - 3.7) Volumes/Mass Name Value Normal Range LA ESV SP 4CH (A/L) 36.8 ml - LA ESV SP 2CH (A/L) 45.89 ml - LA ESV BP (A/L) 42.35 ml - LA ESV BP (A/L) index 26.63 ml/m2 - LA ESV SP 4CH (MOD) 34.42 ml - LA ESV SP 2CH (MOD) 44.21 ml - LA ESV BP (MOD) 39.82 ml - LA ESV BP (MOD) index 25.05 ml/m2 - Aortic Valve Name Value Normal Range LVOT diameter 1.63 cm - Tricuspid Valve Name Value Normal Range TR Vmax 2.56 m/sec - TR peak gradient 26 mmHg - RAP 3 mmHg - RVSP 29 mmHg - IVC diameter 1.83 cm (1.2 - 2.3) Dela Cruz/IV: Voiding Method External Female Catheter IV Catheter Type [Forearm] Peripheral IV IV Catheter Type [Left Forearm INT / Saline Lock ] IV Catheter Type [Right Peripheral IV Antecubital] IV Catheter Type [Right Hand] Peripheral IV IV Catheter Type [Right Wrist] Peripheral IV IV Catheter Type [Left Wrist] Peripheral IV IV Catheter Type [Left Peripheral IV Antecubital] IV Catheter Type [Right INT / Saline Lock Forearm] IV Catheter Type [Left Hand] Peripheral IV Active Medications - Current Medications Current Medications: Generic Name Dose Route Start Last Admin Trade Name Freq PRN Reason Stop Dose Admin Acetaminophen 650 mg 12/06/19 10:25 01/19/20 00:30 Tylenol FEEDTUBE 650 mg Q6H PRN Administration TEMP >/=100.3 Acetylcysteine 200 mg 01/24/20 20:00 01/27/20 10:19 Mucomyst Inhalation INHALATION Not Given BIDRT LUCHO Lipase/Protease/Amylase 1 each 11/23/19 11:[address] 10,500 Unit FEEDTUBE PRN PRN Use w/ sod bicarb for FT Glycopyrrolate 2 mg 12/31/19 20:00 01/27/20 10:15 Robinul PO 2 mg TID LUCHO Administration Hydralazine HCl 10 mg 11/24/19 00:45 12/18/19 13:25 Apresoline IV 10 mg Q6H PRN Administration SBP > 160 Hydroxyzine Pamoate 25 mg 12/06/19 10:00 01/27/20 10:15 Vistaril PO 25 mg BID LUCHO Administration Lansoprazole 30 mg 11/27/19 10:00 01/27/20 10:15 Prevacid Solutab FEEDTUBE 30 mg QDAY LUCHO Administration Levalbuterol HCl 0.63 mg 01/24/20 14:00 01/27/20 07:54 Xopenex IH 0.63 mg Q6HRT LUCHO Administration Levetiracetam 500 mg 11/29/19 10:00 01/27/20 10:15 Keppra PO 500 mg BID LUCHO Administration Mirtazapine 30 mg 12/06/19 10:00 01/27/20 10:15 Remeron PO 30 mg DAILY LUCHO Administration Morphine Sulfate 2 mg 12/12/19 18:40 01/20/20 08:59 Morphine IV 2 mg Q4H PRN Administration Pain, Moderate (4-6) Ondansetron HCl 4 mg 12/10/19 07:53 01/06/20 10:53 Zofran IV 4 mg Q4H PRN Administration Nausea And Vomiting Quetiapine Fumarate 100 mg 01/09/20 21:41 01/26/20 22:31 Seroquel FEEDTUBE 100 mg QHS LUCHO Administration Sertraline HCl 25 mg 01/01/20 10:00 01/27/20 10:15 Zoloft PO 25 mg QDAY LUCHO Administration Simple Syrup 15 ml 11/23/19 11:50 Simple Syrup FEEDTUBE PRN PRN Hypoglycemia BG<70 Simple Syrup 30 ml 11/23/19 11:50 Simple Syrup FEEDTUBE PRN PRN Hypoglycemia Sodium Bicarbonate 325 mg 11/23/19 11:50 Sodium Bicarbonate FEEDTUBE PRN PRN For Clogged Feeding Tube Tamsulosin HCl 0.4 mg 12/14/19 13:00 01/27/20 10:15 Flomax PO 0.4 mg QDAY LUCHO Administration Nutrition/Malnutrition Assess - Dietary Evaluation Nutrition/Malnutrition Findings: Nutrition Notes Start: 11/23/19 11:29 Freq: Status: Active Protocol: Document 01/22/20 12:39 LM (Rec: 01/22/20 12:42 LM [email or web address]) Nutrition Notes Current Diagnosis Hypertension Other Pertinent Diagnosis Cardaic arrest, ETOH dependence, UTI Current Diet Jevity 1.2 at 55ml/hr Labs/Tests Reviewed Pertinent Medications Reviewed Height 5 ft 6 in Weight 54.1 kg [place] Body Weight (kg) 59.09 BMI 19.2 Weight change and time frame wt change noted Subjective/Other Information Jevity running at 55ml/hr. Pt tolerating TF. Percent of energy/protein needs met: 94%/100% Burn Absent Trauma Absent GI Symptoms None Current % PO Negligible Minimum of two criteria Yes Interpretation of Weight Loss (severe) >2% in 1 week Muscle Mass Mild Depletion (non-severe) #2 Nutrition Diagnosis Malnutrition Diagnosis Progress(for reassessment Continues documentation) #1 Nutrition Diagnosis Inadequate oral intake Diagnosis Progress(for reassessment Continues documentation) Is patient on ventilator? No Is Patient Ambulatory and/or Out of Bed No REE-([facility]-confined to bed) 1393.836 Kcal/Kg value to use for calculation 31 Approximate Energy Requirements Using 1677 kcal/Kg Calculation Used for Recommendations [facility] Additional Notes Protein: 64-80g (1.2-1.5g/kg) Fluid: 1 ml/kcal Nutrition Intervention Change Diet Order: Continue TF Nutrition Support: Jevity 1.2 at 55ml/hr Flush 50ml q6h for hyponatremia Flush 90ml q4h once resolved Kcal 1,584 Protein (gm) 73 Fluid (mL) 1,065 Goal #1 TF tolerance Goal #2 Meet at least 80% of energy and protein needs via TF Anticipated Discharge Needs: TF Follow-Up By: 01/29/20 Additional Comments F/U for TF tolerance
[2020-01-27] MEDS: QUEtiapine 100 MG TAB FEEDTUBE SCH (23:14)
[2020-01-28] MEDS: LEVALBUTEROL 0.63 MG/3 ML NEBU IH SCH ×4 (06:14→20:55)
[2020-01-28] MEDS: GLYCOPYRROLATE 1 MG TAB PO SCH ×3 (08:53→22:16)
[2020-01-28] MEDS: SERTRALINE 50 MG TAB PO SCH (09:00)
[2020-01-28] MEDS: TAMSULOSIN 0.4 MG CAP PO SCH (09:00)
[2020-01-28] MEDS: levETIRAcetam 500 MG/5 ML ORAL LIQD PO SCH ×2 (09:00→22:16)
[2020-01-28] MEDS: LANSOPRAZOLE 30 MG SOLUTAB FEEDTUBE SCH (09:01)
[2020-01-28] MEDS: hydrOXYzine PAMOATE 25 MG CAP PO SCH ×2 (09:02→22:16)
[2020-01-28] MEDS: MIRTAZAPINE 30 MG TAB PO SCH (09:05)
[2020-01-28] MEDS: MORPHINE 2 MG/1 ML INJ IV PRN ×2 (11:46→20:50)
--- NOTE | 2020-01-28 11:52 | Progress Note ---
Assessment and Plan Assessment and plan: --Out of hospital cardiac arrest, anoxic brain injury the likelihood of meaningful neurological recovery is low. Noncommunicative, alert and awake --Anoxic brain injury: suspected CT head: No acute abnormality. EEG ordered showed Generalized slowing. No seizures or epileptiform activity. Neurology evaluated: Patient found to have intact corneal/VOR/cough reflexes, and is withdrawing lower extremities, given that patient had an --Acute toxic /metabolic encephalopathy Supportive care --Acute Respiratory failure Vent dependent s/p trach and PEG on 12/12 on T-piece CTA was done and negative for PE, Echo diastolic dysfunction Continue supportive care --Leucocytosis with sepsis/improved Source MRSA bacteremia and MSSA pneumonia. Repeat TTE negative for vegetation. Completed 7 days of Ceftriaxone on 11/29/2019. Treated with Abx vancomycin 1 gm IV q 12 hour total 2 week till 12/30/2019 --MSSA pneumonia: Status post vancomycin till 12/30/2019 --Anemia, microcytic s/p3 units PRBC transfusion, Hb 10.4 --Hyperammonemia -resolved --ELevated LFTs ; normal range --Metabolic Acidosis-resolved --ALcohol USe Disorder; stable --Severe hypokalemia: Resolved --Hyponatremia; closely monitor electrolytes --Seizure disorder: On Keppra --H. Influenzae, tracheobronchitis, treated with abx DNR CODE STATUS Awaiting placement Patient is stable for discharge Pending subacute rehab/SNF placement Disposition; clinically stable for placement Plan of care reviewed with the patient's nurse History Interval history: Patient seen and examined at the bedside this morning Patient's chart medications overnight events reviewed Patient status post tracheostomy on T-piece Minimally communicative, cachectic Vital signs noted Hospitalist Physical - Constitutional Vitals: Temp Pulse Resp BP Pulse Ox 98.2 F 111 H 20 111/77 99 01/28/20 08:05 01/28/20 09:00 01/28/20 09:00 01/28/20 08:05 01/28/20 09:10 General appearance: Present: no acute distress, cachectic, disheveled, other (Tracheostomy on T-piece) - EENT Eyes: Present: PERRL, EOM intact - Neck Neck: Present: supple, other (Tracheostomy on T-piece) - Respiratory Respiratory effort: normal Respiratory: bilateral: diminished, rhonchi, negative: rales, wheezing - Cardiovascular Rhythm: regular Heart Sounds: Present: S1 & S2 - Extremities Extremities: no ischemia, No edema - Abdominal General gastrointestinal: soft, non-tender, non-distended, normal bowel sounds - Integumentary Integumentary: Present: clear, warm - Psychiatric Psychiatric: appropriate mood/affect - Neurologic Neurologic: CNII-XII intact, moves all extremities Results - Labs CBC & Chem 7: 01/26/20 05:59 01/26/20 05:59 Labs: Laboratory Last Values WBC 12.8 K/mm3 (4.5-11.0) H 01/26/20 05:59 RBC 3.70 M/mm3 (3.65-5.03) 01/26/20 05:59 Hgb 10.4 gm/dl (10.1-14.3) 01/26/20 05:59 Hct 32.0 % (30.3-42.9) 01/26/20 05:59 MCV 87 fl (79-97) 01/26/20 05:59 MCH 28 pg (28-32) 01/26/20 05:59 MCHC 33 % (30-34) 01/26/20 05:59 RDW 16.4 % (13.2-15.2) H 01/26/20 05:59 Plt Count 743 K/mm3 (140-440) H 01/26/20 05:59 Lymph % (Auto) 14.7 % (13.4-35.0) 01/26/20 05:59 Gilmer % (Auto) 7.2 % (0.0-7.3) 01/26/20 05:59 Eos % (Auto) 0.9 % (0.0-4.3) 01/26/20 05:59 Baso % (Auto) 1.0 % (0.0-1.8) 01/26/20 05:59 Lymph # 1.9 K/mm3 (1.2-5.4) 01/26/20 05:59 Gilmer # 0.9 K/mm3 (0.0-0.8) H 01/26/20 05:59 Eos # 0.1 K/mm3 (0.0-0.4) 01/26/20 05:59 Baso # 0.1 K/mm3 (0.0-0.1) 01/26/20 05:59 Add Manual Diff Complete 12/25/19 03:47 Total Counted 200 12/25/19 03:47 Seg Neutrophils % 76.2 % (40.0-70.0) H 01/26/20 05:59 Seg Neuts % (Manual) 97.5 % (40.0-70.0) H 12/25/19 03:47 Band Neutrophils % 0 % 12/25/19 03:47 Lymphocytes % (Manual) 1.0 % (13.4-35.0) L 12/25/19 03:47 Reactive Lymphs % (Man) 0 % 12/25/19 03:47 Monocytes % (Manual) 1.5 % (0.0-7.3) 12/25/19 03:47 Eosinophils % (Manual) 0 % (0.0-4.3) 12/25/19 03:47 Basophils % (Manual) 0 % (0.0-1.8) 12/25/19 03:47 Metamyelocytes % 0 % 12/25/19 03:47 Myelocytes % 0 % 12/25/19 03:47 Promyelocytes % 0 % 12/25/19 03:47 Blast Cells % 0 % 12/25/19 03:47 Nucleated RBC % Not Reportable 12/25/19 03:47 Seg Neutrophils # 9.8 K/mm3 (1.8-7.7) H 01/26/20 05:59 Seg Neutrophils # Man 35.3 K/mm3 (1.8-7.7) H 12/25/19 03:47 Band Neutrophils # 0.0 K/mm3 12/25/19 03:47 Lymphocytes # (Manual) 0.4 K/mm3 (1.2-5.4) L 12/25/19 03:47 Abs React Lymphs (Man) 0.0 K/mm3 12/25/19 03:47 Monocytes # (Manual) 0.5 K/mm3 (0.0-0.8) 12/25/19 03:47 Eosinophils # (Manual) 0.0 K/mm3 (0.0-0.4) 12/25/19 03:47 Basophils # (Manual) 0.0 K/mm3 (0.0-0.1) 12/25/19 03:47 Metamyelocytes # 0.0 K/mm3 12/25/19 03:47 Myelocytes # 0.0 K/mm3 12/25/19 03:47 Promyelocytes # 0.0 K/mm3 12/25/19 03:47 Blast Cells # 0.0 K/mm3 12/25/19 03:47 Pathologist Review 12/13/19 07:48 WBC Morphology Not Reportable 12/25/19 03:47 Hypersegmented Neuts Not Reportable 12/25/19 03:47 Hyposegmented Neuts Not Reportable 12/25/19 03:47 Hypogranular Neuts Not Reportable 12/25/19 03:47 Smudge Cells Not Reportable 12/25/19 03:47 Toxic Granulation Not Reportable 12/25/19 03:47 Toxic Vacuolation Not Reportable 12/25/19 03:47 Dohle Bodies Not Reportable 12/25/19 03:47 Pelger-Huet Anomaly Not Reportable 12/25/19 03:47 Dominique Rods Not Reportable 12/25/19 03:47 Platelet Estimate Consistent w auto 12/25/19 03:47 Clumped Platelets Not Reportable 12/25/19 03:47 Plt Clumps, EDTA Not Reportable 12/25/19 03:47 Large Platelets Not Reportable 12/25/19 03:47 Giant Platelets Not Reportable 12/25/19 03:47 Platelet Satelliting Not Reportable 12/25/19 03:47 Plt Morphology Comment Not Reportable 12/25/19 03:47 RBC Morphology Not Reportable 12/25/19 03:47 Dimorphic RBCs Not Reportable 12/25/19 03:47 Polychromasia Not Reportable 12/25/19 03:47 Hypochromasia Not Reportable 12/25/19 03:47 Poikilocytosis Not Reportable 12/25/19 03:47 Anisocytosis 1+ 12/25/19 03:47 Microcytosis Not Reportable 12/25/19 03:47 Macrocytosis Not Reportable 12/25/19 03:47 Spherocytes Not Reportable 12/25/19 03:47 Pappenheimer Bodies Not Reportable 12/25/19 03:47 Sickle Cells Not Reportable 12/25/19 03:47 Target Cells Not Reportable 12/25/19 03:47 Tear Drop Cells Not Reportable 12/25/19 03:47 Ovalocytes Not Reportable 12/25/19 03:47 Helmet Cells Not Reportable 12/25/19 03:47 Frias-Niangua Bodies Not Reportable 12/25/19 03:47 Merom Rings Not Reportable 12/25/19 03:47 Jamshid Cells Not Reportable 12/25/19 03:47 Bite Cells Not Reportable 12/25/19 03:47 Crenated Cell Not Reportable 12/25/19 03:47 Elliptocytes Not Reportable 12/25/19 03:47 Acanthocytes (Spur) Not Reportable 12/25/19 03:47 Rouleaux Not Reportable 12/25/19 03:47 Hemoglobin C Crystals Not Reportable 12/25/19 03:47 Schistocytes Not Reportable 12/25/19 03:47 Malaria parasites Not Reportable 12/25/19 03:47 Gregg Bodies Not Reportable 12/25/19 03:47 Hem Pathologist Commnt No 12/25/19 03:47 PT 17.0 Sec. (12.2-14.9) H 11/23/19 03:47 INR 1.36 (0.87-1.13) H 11/23/19 03:47 APTT 128.2 Sec. (24.2-36.6) H* 11/23/19 03:47 Heparin Anti-Xa Level 0.31 U.I./ml (0.3-0.7) 11/23/19 09:03 ABG pH 7.429 pH Units (7.350-7.450) 01/09/20 08:51 ABG pCO2 39.1 mm Hg 01/09/20 08:51 ABG pO2 94.3 mm Hg (80.0-90.0) H 01/09/20 08:51 ABG HCO3 25.3 mmol/L (20.0-26.0) 01/09/20 08:51 ABG O2 Saturation 97.4 % (95.0-99.0) 01/09/20 08:51 ABG O2 Content 12.9 (0.0-44) 01/09/20 08:51 ABG Base Excess 1.0 mmol/L (-2.0-3.0) 01/09/20 08:51 ABG Hemoglobin 9.5 gm/dl (12.0-16.0) L 01/09/20 08:51 ABG Carboxyhemoglobin 1.3 % (0.0-5.0) 01/09/20 08:51 ABG Methemoglobin 0.4 % (0.0-1.5) 01/09/20 08:51 Oxyhemoglobin 95.7 % (95.0-99.0) 01/09/20 08:51 FiO2 35 % 01/09/20 08:51 Sodium 132 mmol/L (137-145) L 01/26/20 05:59 Potassium 4.7 mmol/L (3.6-5.0) 01/26/20 05:59 Chloride 90.9 mmol/L (98-107) L 01/26/20 05:59 Carbon Dioxide 27 mmol/L (22-30) 01/26/20 05:59 Anion Gap 19 mmol/L 01/26/20 05:59 BUN 23 mg/dL (7-17) H 01/26/20 05:59 Creatinine 0.4 mg/dL (0.7-1.2) L 01/26/20 05:59 Estimated GFR > 60 ml/min 01/26/20 05:59 BUN/Creatinine Ratio 58 % 01/26/20 05:59 Glucose 122 mg/dL (65-100) H 01/26/20 05:59 POC Glucose 106 (70-105) H 01/28/20 11:47 Lactic Acid 1.80 mmol/L (0.7-2.0) 11/25/19 05:05 Calcium 11.0 mg/dL (8.4-10.2) H 01/26/20 05:59 Ionized Calcium 4.5 mg/dL (4.8-5.6) L 11/23/19 06:32 Phosphorus 4.20 mg/dL (2.5-4.5) D 11/28/19 08:59 Magnesium 2.30 mg/dL (1.7-2.3) 11/29/19 13:41 Total Bilirubin 0.40 mg/dL (0.1-1.2) 12/13/19 07:48 AST 27 units/L (5-40) 12/13/19 07:48 ALT 26 units/L (7-56) 12/13/19 07:48 Alkaline Phosphatase 316 units/L (35-129) H 12/13/19 07:48 Ammonia 42.0 umol/L (25-60) 11/29/19 13:41 Total Creatine Kinase 139 units/L (30-135) H 11/22/19 23:27 CK-MB (CK-2) 8.3 ng/mL (0.0-4.0) H 11/22/19 23:27 CK-MB (CK-2) Rel Index 5.9 (0-4) H 11/22/19 23:27 Troponin T < 0.010 ng/mL (0.00-0.029) 11/22/19 23:27 Total Protein 6.8 g/dL (6.3-8.2) 12/13/19 07:48 Albumin 2.4 g/dL (3.9-5) L 12/13/19 07:48 Albumin/Globulin Ratio 0.5 % 12/13/19 07:48 Lipase 18 units/L (13-60) 11/23/19 00:34 Procalcitonin 1.09 ng/mL (<0.15) 11/23/19 04:53 Urine Color Yellow (Yellow) 12/16/19 Unknown Urine Turbidity Slightly-cloudy (Clear) 12/16/19 Unknown Urine pH 5.0 (5.0-7.0) 12/16/19 Unknown Ur Specific [place] 1.018 (1.003-1.030) 12/16/19 Unknown Urine Protein 30 mg/dl mg/dL (Negative) 12/16/19 Unknown Urine Glucose (UA) Neg mg/dL (Negative) 12/16/19 Unknown Urine Ketones Neg mg/dL (Negative) 12/16/19 Unknown Urine Blood Sm (Negative) 12/16/19 Unknown Urine Nitrite Neg (Negative) 12/16/19 Unknown Urine Bilirubin Neg (Negative) 12/16/19 Unknown Urine Urobilinogen < 2.0 mg/dL (<2.0) 12/16/19 Unknown Ur Leukocyte Esterase Neg (Negative) 12/16/19 Unknown Urine WBC (Auto) 6.0 /HPF (0.0-6.0) 12/16/19 Unknown Urine RBC (Auto) 9.0 /HPF (0.0-6.0) 12/16/19 Unknown U Epithel Cells (Auto) < 1.0 /HPF (0-13.0) 12/16/19 Unknown Urine Bacteria (Auto) 2+ /HPF (Negative) 11/22/19 23:17 Hyaline Casts 3 /LPF 12/16/19 Unknown Granular Casts 3 /LPF 12/16/19 Unknown Urine Mucus Few /HPF 12/16/19 Unknown Vancomycin Trough 33.8 ug/mL (5.0-20.0) H 12/21/19 08:56 Random Vancomycin 16.2 ug/mL (0-40.0) 12/24/19 04:31 Salicylates < 0.3 mg/dL (2.8-20.0) L 11/22/19 23:27 Urine Opiates Screen Presumptive negative 11/22/19 23:17 Urine Methadone Screen Presumptive negative 11/22/19 23:17 Acetaminophen < 5.0 ug/mL (10.0-30.0) L 11/22/19 23:27 Ur Barbiturates Screen Presumptive negative 11/22/19 23:17 Ur Phencyclidine Scrn Presumptive negative 11/22/19 23:17 Ur Amphetamines Screen Presumptive negative 11/22/19 23:17 U Benzodiazepines Scrn Presumptive negative 11/22/19 23:17 Urine Cocaine Screen Presumptive negative 11/22/19 23:17 U Marijuana (THC) Screen Presumptive negative 11/22/19 23:17 Drugs of Abuse Note Disclamer 11/22/19 23:17 Plasma/Serum Alcohol 0.08 % (0-0.07) H 11/22/19 23:27 Hepatitis A IgM Ab Non-reactive (NonReactive) 11/23/19 01:19 Hep Bs Antigen Non-reactive (Negative) 11/23/19 01:19 Hep B Core IgM Ab Non-reactive (NonReactive) 11/23/19 01:19 Hepatitis C Antibody Non-reactive (NonReactive) 11/23/19 01:19 Blood Type O POSITIVE 12/21/19 14:54 Antibody Screen Negative 12/21/19 14:54 Crossmatch See Detail 12/21/19 14:54 - Diagnostic Impressions Diagnostic Impressions: Echocardiogram 11/23/19 03:58 Transthoracic Echocardiogram Indication: Cardiac arrest BP: 131/89 HR: 115 Conclusions *The study quality is technically difficult. *Global left ventricular wall motion and contractility are within normal limits. *The estimated ejection fraction is 55-60%. *Abnormal left ventricular diastolic filling is observed, consistent with impaired relaxation. *There is no pericardial effusion. Findings Procedure Info: The study quality is technically difficult. The study was technically limited due to the patient's inability to lay in the left lateral decubitus position. Left Ventricle: The left ventricular chamber size is normal. There is no left ventricular hypertrophy. Global left ventricular wall motion and contractility are within normal limits. Global left ventricular systolic function is normal. The estimated ejection fraction is 55-60%. Abnormal left ventricular diastolic filling is observed, consistent with impaired relaxation. Left Atrium: The left atrial chamber size is normal. Aortic Valve: The aortic valve leaflets are mildly thickened. Mitral Valve: The mitral valve leaflets are mildly thickened. There is no evidence of mitral regurgitation. Tricuspid Valve: The tricuspid valve leaflets are normal. There is trace tricuspid regurgitation. The right ventricular systolic pressure is calculated at 33 mmHg. Pulmonic Valve: The pulmonic valve appears normal. Pericardium: The pericardium appears normal. There is no pericardial effusion. Aorta: The aorta appears normal. Venous: The inferior vena cava appears normal in size. Measurements Chambers 2D Name Value Normal Range IVSd (2D) 0.94 cm (0.6 - 1.1) LVPWd (2D) 0.81 cm (0.6 - 1.1) LVIDd (2D) 3.6 cm (3.7 - 5.6) LVIDs (2D) 2.27 cm (2 - 3.8) LV FS (2D) 36.93 % - EF Teichholz (2D) 67.76 % - Ao root diameter (2D) 3.03 cm (2 - 3.7) Volumes/Mass Name Value Normal Range LA ESV SP 4CH (A/L) 16.89 ml - LA ESV SP 4CH (MOD) 15.52 ml - Diastolic/Systolic Function Name Value Normal Range MV E-wave Vmax 0.55 m/sec - MV deceleration time 200.89 msec - MV A-wave Vmax 0.68 m/sec - MV E:A ratio 0.82 ratio - Aortic Valve Name Value Normal Range AV Vmax 1.1 m/sec - AV VTI 15.9 cm - AV peak gradient 4.86 mmHg - AV mean gradient 2.59 mmHg - LVOT diameter 2 cm - LVOT Vmax 1.03 m/sec - LVOT VTI 15.87 cm - LVOT peak gradient 4.24 mmHg - LVOT mean gradient 2.41 mmHg - SV LVOT 49.77 ml - JOSÉ MIGUEL (continuity Vmax) 2.93 cm2 - JOSÉ MIGUEL (continuity VTI) 3.13 cm2 - Tricuspid Valve Name Value Normal Range TR Vmax 2.74 m/sec - TR peak gradient 303 mmHg - RAP 3 mmHg - RVSP 33 mmHg - IVC diameter 1.77 cm (1.2 - 2.3) Pulmonic Valve/Qp:Qs Name Value Normal Range PV Vmax 0.77 m/sec - PV peak gradient 2.4 mmHg - PV acceleration time 114.18 msec - Echocardiogram Limited Views 12/17/19 14:53 Transthoracic Echocardiogram Indication: R/O Vegetations BP: 144/83 HR: 133 Conclusions *Global left ventricular systolic function is mildly decreased. *The estimated ejection fraction is 45-50%. *A trivial pericardial effusion is visualized. Findings Left Ventricle: The left ventricular chamber size is normal. Global left ventricular systolic function is mildly decreased. The estimated ejection fraction is 45-50%. Left Atrium: The left atrial chamber size is normal. Right Ventricle: The right ventricular cavity size is normal. Right Atrium: The right atrial cavity size is normal. Aortic Valve: The aortic valve is not well visualized. There is no evidence of aortic regurgitation. Mitral Valve: The mitral valve leaflets are mildly thickened. There is trace of mitral regurgitation. Tricuspid Valve: The tricuspid valve leaflets are mildly thickened. There is trace tricuspid regurgitation. The right ventricular systolic pressure is calculated at 29 mmHg. Pulmonic Valve: The pulmonic valve is not well visualized. There is no evidence of pulmonic regurgitation. Pericardium: A trivial pericardial effusion is visualized. Aorta: There is no dilatation of the ascending aorta. There is no dilatation of the aortic root. Venous: The inferior vena cava appears normal in size. There is a greater than 50% respiratory change in the inferior vena cava dimension. Measurements Chambers 2D Name Value Normal Range IVSd (2D) 0.83 cm (0.6 - 1.1) LVPWd (2D) 0.98 cm (0.6 - 1.1) LVIDd (2D) 3.71 cm (3.7 - 5.6) LVIDs (2D) 2.93 cm (2 - 3.8) LV FS (2D) 21.12 % - EF Teichholz (2D) 43.71 % - Ao root diameter (2D) 3.02 cm (2 - 3.7) Volumes/Mass Name Value Normal Range LA ESV SP 4CH (A/L) 36.8 ml - LA ESV SP 2CH (A/L) 45.89 ml - LA ESV BP (A/L) 42.35 ml - LA ESV BP (A/L) index 26.63 ml/m2 - LA ESV SP 4CH (MOD) 34.42 ml - LA ESV SP 2CH (MOD) 44.21 ml - LA ESV BP (MOD) 39.82 ml - LA ESV BP (MOD) index 25.05 ml/m2 - Aortic Valve Name Value Normal Range LVOT diameter 1.63 cm - Tricuspid Valve Name Value Normal Range TR Vmax 2.56 m/sec - TR peak gradient 26 mmHg - RAP 3 mmHg - RVSP 29 mmHg - IVC diameter 1.83 cm (1.2 - 2.3) [place]/IV: Voiding Method Diaper IV Catheter Type [Forearm] Peripheral IV IV Catheter Type [Left Forearm INT / Saline Lock ] IV Catheter Type [Right Peripheral IV Antecubital] IV Catheter Type [Right Hand] Peripheral IV IV Catheter Type [Right Wrist] Peripheral IV IV Catheter Type [Left Wrist] Peripheral IV IV Catheter Type [Left Peripheral IV Antecubital] IV Catheter Type [Right INT / Saline Lock Forearm] IV Catheter Type [Left Hand] Peripheral IV Active Medications - Current Medications Current Medications: Generic Name Dose Route Start Last Admin Trade Name Freq PRN Reason Stop Dose Admin Acetaminophen 650 mg 12/06/19 10:25 01/19/20 00:30 Tylenol FEEDTUBE 650 mg Q6H PRN Administration TEMP >/=100.3 Lipase/Protease/Amylase 1 each 11/23/19 11:50 Pancreaze 10,500 Unit FEEDTUBE PRN PRN Use w/ sod bicarb for FT Glycopyrrolate 2 mg 12/31/19 20:00 01/28/20 08:53 Robinul PO 2 mg TID LUCHO Administration Hydralazine HCl 10 mg 11/24/19 00:45 12/18/19 13:25 Apresoline IV 10 mg Q6H PRN Administration SBP > 160 Hydroxyzine Pamoate 25 mg 12/06/19 10:00 01/28/20 09:02 Vistaril PO 25 mg BID LUCHO Administration Lansoprazole 30 mg 11/27/19 10:00 01/28/20 09:01 Prevacid Solutab FEEDTUBE 30 mg QDAY LUCHO Administration Levalbuterol HCl 0.63 mg 01/24/20 14:00 01/28/20 09:00 Xopenex IH 0.63 mg Q6HRT LUCHO Administration Levetiracetam 500 mg 11/29/19 10:00 01/28/20 09:00 Keppra PO 500 mg BID LUCHO Administration Mirtazapine 30 mg 12/06/19 10:00 01/28/20 09:05 Remeron PO 30 mg DAILY LUCHO Administration Morphine Sulfate 2 mg 12/12/19 18:40 01/20/20 08:59 Morphine IV 2 mg Q4H PRN Administration Pain, Moderate (4-6) Ondansetron HCl 4 mg 12/10/19 07:53 01/06/20 10:53 Zofran IV 4 mg Q4H PRN Administration Nausea And Vomiting Quetiapine Fumarate 100 mg 01/09/20 21:41 01/27/20 23:14 Seroquel FEEDTUBE 100 mg QHS LUCHO Administration Sertraline HCl 25 mg 01/01/20 10:00 01/28/20 09:00 Zoloft PO 25 mg QDAY LUCHO Administration Simple Syrup 15 ml 11/23/19 11:50 Simple Syrup FEEDTUBE PRN PRN Hypoglycemia BG<70 Simple Syrup 30 ml 11/23/19 11:50 Simple Syrup FEEDTUBE PRN PRN Hypoglycemia Sodium Bicarbonate 325 mg 11/23/19 11:50 Sodium Bicarbonate FEEDTUBE PRN PRN For Clogged Feeding Tube Tamsulosin HCl 0.4 mg 12/14/19 13:00 01/28/20 09:00 Flomax PO 0.4 mg QDAY LUCHO Administration Nutrition/Malnutrition Assess - Dietary Evaluation Nutrition/Malnutrition Findings: Nutrition Notes Start: 11/23/19 11:29 Freq: Status: Active Protocol: Document 01/22/20 12:39 LM (Rec: 01/22/20 12:42 LM [id number]) Nutrition Notes Current Diagnosis Hypertension Other Pertinent Diagnosis Cardaic arrest, ETOH dependence, UTI Current Diet Jevity 1.2 at 55ml/hr Labs/Tests Reviewed Pertinent Medications Reviewed Height 5 ft 6 in Weight 54.1 kg [place] Body Weight (kg) 59.09 BMI 19.2 Weight change and time frame wt change noted Subjective/Other Information Jevity running at 55ml/hr. Pt tolerating TF. Percent of energy/protein needs met: 94%/100% Burn Absent Trauma Absent GI Symptoms None Current % PO Negligible Minimum of two criteria Yes Interpretation of Weight Loss (severe) >2% in 1 week Muscle Mass Mild Depletion (non-severe) #2 Nutrition Diagnosis Malnutrition Diagnosis Progress(for reassessment Continues documentation) #1 Nutrition Diagnosis Inadequate oral intake Diagnosis Progress(for reassessment Continues documentation) Is patient on ventilator? No Is Patient Ambulatory and/or Out of Bed No REE-([facility]-confined to bed) 1393.836 Kcal/Kg value to use for calculation 31 Approximate Energy Requirements Using 1677 kcal/Kg Calculation Used for Recommendations [facility] Additional Notes Protein: 64-80g (1.2-1.5g/kg) Fluid: 1 ml/kcal Nutrition Intervention Change Diet Order: Continue TF Nutrition Support: Jevity 1.2 at 55ml/hr Flush 50ml q6h for hyponatremia Flush 90ml q4h once resolved Kcal 1,584 Protein (gm) 73 Fluid (mL) 1,065 Goal #1 TF tolerance Goal #2 Meet at least 80% of energy and protein needs via TF Anticipated Discharge Needs: TF Follow-Up By: 01/29/20 Additional Comments F/U for TF tolerance
[2020-01-28] MEDS: QUEtiapine 100 MG TAB FEEDTUBE SCH (22:16)
[2020-01-29] MEDS: LEVALBUTEROL 0.63 MG/3 ML NEBU IH SCH ×4 (02:30→20:27)
[2020-01-29] MEDS: MORPHINE 2 MG/1 ML INJ IV PRN ×2 (03:09→12:24)
[2020-01-29] MEDS: GLYCOPYRROLATE 1 MG TAB PO SCH ×3 (08:50→22:16)
[2020-01-29] MEDS: LANSOPRAZOLE 30 MG SOLUTAB FEEDTUBE SCH (09:09)
[2020-01-29] MEDS: TAMSULOSIN 0.4 MG CAP PO SCH (09:10)
[2020-01-29] MEDS: SERTRALINE 50 MG TAB PO SCH (09:10)
[2020-01-29] MEDS: levETIRAcetam 500 MG/5 ML ORAL LIQD PO SCH ×2 (09:10→22:16)
[2020-01-29] MEDS: MIRTAZAPINE 30 MG TAB PO SCH (09:10)
[2020-01-29] MEDS: hydrOXYzine PAMOATE 25 MG CAP PO SCH ×2 (09:10→22:16)
--- NOTE | 2020-01-29 12:38 | Progress Note ---
Assessment and Plan Acute cardiopulmonary arrest with ROSC Acute hypoxemic respiratory failure on MVS Acute metabolic-toxic encephalopathy Metabolic acidosis/alcoholic acidosis/Lactic acidosis Ischemic hepatitis Leucocytosis with lactic acidosis Tobacco use disorder ALcohol use Disorder Hypokalemia High grade fevers - continue PMV trials as tolerated - continue mucomyst nebs - advance diet per SCIENTIFIC HELPER - no new issues; continue care as below otherwise - repeat CXR prn at this point - Continue to wean supplemental oxygen for target O2 sat's > 90% - continue bronchodilators with routine trach care and pulmonary hygiene per RT - Slow Seroquel taper - consider Provigil - s/p Antibiotics per ID recommendations - continue Reglan for G.I. motility - Continue VTE and Stress ulcer prophylaxis - Continue enteric nutritional support - Monitor glycemic control, with target blood glucose 140-180 mg/dL while cr itically ill (Avoid hypoglycemia) - ABG and CXR prn - Continue to avoid nephrotoxins, adjust all medications fro GFR and CrCL - Continue to avoid benzodiazepines , as much as possible, to reduce the p ossibility of delirium - Continue prn analgesia per CPOT score - Continue to maintain of sleep-wake cycle, avoid delirium - PT/OT/ROM exercises- awaiting PT/OT evaluation - Continue mobility protocol and skin assessment per protocol for pressure ulcer prevention - Continue to monitor for clinical seizures - Continue Nicotine withdrawal precautions, alcohol withdrawal precautions - continue other care per attending / other consultants - continue discharge planning ..... re-evaluate in am & prn CONDITION: FAIR PROGNOSIS: IMPROVED CODE STATUS: FULL CODE Subjective Date of service: 01/29/20 Principal diagnosis: Ac cardiopulmonary arrest; Ac hypoxemic resp failure; Acute encephalopathy Interval history: Patient is seen today for: Acute cardiopulmonary arrest with ROSC; Acute hypoxemic respiratory failure; Acute metabolic-toxic encephalopathy; Ischemic hepatitis; Leucocytosis with lactic acidosis; Tobacco use disorder; Alcohol use Disorder; Hypokalemia; High grade fevers Seen and examined at bedside; 24hour events reviewed; nursing and respiratory care staff consulted; no adverse overnight events reported to me; resting peacef ully in bed; no new issues; discharge planning ongoing Objective Vital Signs - 12hr 01/29/20 01/29/20 01/29/20 02:30 03:00 03:07 Temperature Pulse Rate 116 H Pulse Rate [ 103 H Anterior Right Throughout] Respiratory Rate Respiratory 20 Rate [Anterior Right Throughout] Blood Pressure Blood Pressure [Left] O2 Sat by Pulse 97 100 Oximetry O2 Sat by Pulse Oximetry [ Assessment] 01/29/20 01/29/20 01/29/20 03:20 04:11 07:38 Temperature 97.6 F Pulse Rate 108 H Pulse Rate [ 109 H Anterior Right Throughout] Respiratory 20 Rate Respiratory 20 Rate [Anterior Right Throughout] Blood Pressure 106/74 Blood Pressure [Left] O2 Sat by Pulse 98 Oximetry O2 Sat by Pulse 97 Oximetry [ Assessment] 01/29/20 01/29/20 01/29/20 07:55 07:58 12:26 Temperature 98.7 F 98.6 F Pulse Rate 113 H 127 H Pulse Rate [ Anterior Right Throughout] Respiratory 18 18 Rate Respiratory Rate [Anterior Right Throughout] Blood Pressure 124/77 Blood Pressure 125/90 [Left] O2 Sat by Pulse 98 98 97 Oximetry O2 Sat by Pulse 98 Oximetry [ Assessment] Constitutional: no acute distress, other (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, with midline tracheostomy and with normal respiratory effort aT REST) Eyes: non-icteric ENT: oropharynx moist, other (s/p trach) Neck: supple, no lymphadenopathy, no JVD Effort: mildly labored Ascultation: Bilateral: diminished breath sounds, rhonchi Percussion: Bilateral: not dull Cardiovascular: regular rate and rhythm (tachycardia), other (S1,S2) Gastrointestinal: normoactive bowel sounds, soft, non-tender, non-distended Integumentary: normal Extremities: no cyanosis, no edema, pulses normal, no ischemia or petechiae Neurologic: other (awake; folowing simple commands) Psychiatric: other (Psychiatric: Unable to assess re: AMS) CBC and BMP: 01/26/20 05:59 01/26/20 05:59 ABG, PT/INR, D-dimer: ABG ABG pH 7.429 pH Units (7.350-7.450) 01/09/20 08:51 ABG pCO2 39.1 mm Hg 01/09/20 08:51 ABG pO2 94.3 mm Hg (80.0-90.0) H 01/09/20 08:51 ABG O2 Saturation 97.4 % (95.0-99.0) 01/09/20 08:51 PT/INR, D-dimer PT 17.0 Sec. (12.2-14.9) H 11/23/19 03:47 INR 1.36 (0.87-1.13) H 11/23/19 03:47 Abnormal lab findings: Abnormal Labs 11/22/19 11/22/19 11/22/19 23:17 23:18 23:27 WBC 21.2 H RBC 3.59 L Hgb 9.8 L Hct MCH 27 L RDW 18.6 H Plt Count 454 H Lymph % (Auto) [place] % (Auto) [place] # Baso # Seg Neutrophils % Seg Neuts % (Manual) 86.0 H Lymphocytes % (Manual) 9.0 L Monocytes % (Manual) Seg Neutrophils # Seg Neutrophils # Man 18.2 H Lymphocytes # (Manual) Monocytes # (Manual) 1.1 H Eosinophils # (Manual) Basophils # (Manual) PT INR APTT ABG pH ABG pO2 ABG HCO3 ABG O2 Saturation ABG Base Excess ABG Hemoglobin Oxyhemoglobin Sodium Potassium Chloride Carbon Dioxide BUN Creatinine Glucose POC Glucose 53 L Lactic Acid Calcium Ionized Calcium Phosphorus Magnesium Total Bilirubin AST ALT Alkaline Phosphatase Ammonia Total Creatine Kinase CK-MB (CK-2) CK-MB (CK-2) Rel Index Total Protein Albumin Urine WBC (Auto) 40.0 H Vancomycin Trough Salicylates Acetaminophen Plasma/Serum Alcohol Crossmatch 11/22/19 11/22/19 11/22/19 23:27 23:27 23:27 WBC RBC Hgb Hct MCH RDW Plt Count Lymph % (Auto) [place] % (Auto) [place] # Baso # Seg Neutrophils % Seg Neuts % (Manual) Lymphocytes % (Manual) Monocytes % (Manual) Seg Neutrophils # Seg Neutrophils # Man Lymphocytes # (Manual) Monocytes # (Manual) Eosinophils # (Manual) Basophils # (Manual) PT INR APTT ABG pH ABG pO2 ABG HCO3 ABG O2 Saturation ABG Base Excess ABG Hemoglobin Oxyhemoglobin Sodium Potassium 2.4 L* Chloride 85.1 L Carbon Dioxide 19 L BUN Creatinine 0.5 L Glucose 261 H POC Glucose Lactic Acid Calcium Ionized Calcium Phosphorus Magnesium Total Bilirubin AST 609 H ALT 152 H Alkaline Phosphatase 160 H Ammonia 117.0 H Total Creatine Kinase 139 H CK-MB (CK-2) 8.3 H CK-MB (CK-2) Rel Index 5.9 H Total Protein Albumin 3.6 L Urine WBC (Auto) Vancomycin Trough Salicylates < 0.3 L Acetaminophen Plasma/Serum Alcohol Crossmatch 11/22/19 11/22/19 11/23/19 23:27 23:27 01:10 WBC RBC Hgb Hct MCH RDW Plt Count Lymph % (Auto) [place] % (Auto) [place] # Baso # Seg Neutrophils % Seg Neuts % (Manual) Lymphocytes % (Manual) Monocytes % (Manual) Seg Neutrophils # Seg Neutrophils # Man Lymphocytes # (Manual) Monocytes # (Manual) Eosinophils # (Manual) Basophils # (Manual) PT INR APTT ABG pH 7.273 L ABG pO2 209.7 H ABG HCO3 ABG O2 Saturation 99.2 H ABG Base Excess -3.9 L ABG Hemoglobin 10.6 L Oxyhemoglobin 93.9 L Sodium Potassium Chloride Carbon Dioxide BUN Creatinine Glucose POC Glucose Lactic Acid Calcium Ionized Calcium Phosphorus Magnesium Total Bilirubin AST ALT Alkaline Phosphatase Ammonia Total Creatine Kinase CK-MB (CK-2) CK-MB (CK-2) Rel Index Total Protein Albumin Urine WBC (Auto) Vancomycin Trough Salicylates Acetaminophen < 5.0 L Plasma/Serum Alcohol 0.08 H Crossmatch 11/23/19 11/23/19 11/23/19 01:19 01:19 03:47 WBC RBC Hgb Hct MCH RDW Plt Count Lymph % (Auto) [place] % (Auto) [place] # Baso # Seg Neutrophils % Seg Neuts % (Manual) Lymphocytes % (Manual) Monocytes % (Manual) Seg Neutrophils # Seg Neutrophils # Man Lymphocytes # (Manual) Monocytes # (Manual) Eosinophils # (Manual) Basophils # (Manual) PT 16.3 H INR 1.29 H APTT ABG pH ABG pO2 ABG HCO3 ABG O2 Saturation ABG Base Excess ABG Hemoglobin Oxyhemoglobin Sodium Potassium Chloride Carbon Dioxide BUN Creatinine Glucose POC Glucose Lactic Acid 2.10 H* 5.00 H* Calcium Ionized Calcium Phosphorus Magnesium Total Bilirubin AST ALT Alkaline Phosphatase Ammonia Total Creatine Kinase CK-MB (CK-2) CK-MB (CK-2) Rel Index Total Protein Albumin Urine WBC (Auto) Vancomycin Trough Salicylates Acetaminophen Plasma/Serum Alcohol Crossmatch 11/23/19 11/23/19 11/23/19 03:47 03:47 04:53 WBC RBC Hgb 9.4 L Hct MCH RDW Plt Count Lymph % (Auto) [place] % (Auto) [place] # Baso # Seg Neutrophils % Seg Neuts % (Manual) Lymphocytes % (Manual) Monocytes % (Manual) Seg Neutrophils # Seg Neutrophils # Man Lymphocytes # (Manual) Monocytes # (Manual) Eosinophils # (Manual) Basophils # (Manual) PT 17.0 H INR 1.36 H APTT 128.2 H* ABG pH ABG pO2 ABG HCO3 ABG O2 Saturation ABG Base Excess ABG Hemoglobin Oxyhemoglobin Sodium Potassium Chloride Carbon Dioxide 18 L BUN Creatinine 0.5 L Glucose 105 H POC Glucose Lactic Acid Calcium 8.3 L Ionized Calcium Phosphorus 2.40 L Magnesium Total Bilirubin 1.30 H AST 761 H ALT 158 H Alkaline Phosphatase 143 H Ammonia Total Creatine Kinase CK-MB (CK-2) CK-MB (CK-2) Rel Index Total Protein Albumin 2.8 L Urine WBC (Auto) Vancomycin Trough Salicylates Acetaminophen Plasma/Serum Alcohol Crossmatch 11/23/19 11/23/19 11/23/19 05:12 06:32 06:32 WBC 16.8 H RBC 3.31 L Hgb 8.9 L Hct 28.7 L MCH 27 L RDW 18.6 H Plt Count Lymph % (Auto) [place] % (Auto) [place] # Baso # Seg Neutrophils % Seg Neuts % (Manual) 94.0 H Lymphocytes % (Manual) 1.0 L Monocytes % (Manual) Seg Neutrophils # Seg Neutrophils # Man 15.8 H Lymphocytes # (Manual) 0.2 L Monocytes # (Manual) Eosinophils # (Manual) Basophils # (Manual) PT INR APTT ABG pH ABG pO2 ABG HCO3 ABG O2 Saturation ABG Base Excess -3.2 L ABG Hemoglobin 9.0 L Oxyhemoglobin 93.6 L Sodium Potassium Chloride Carbon Dioxide BUN Creatinine Glucose POC Glucose Lactic Acid Calcium Ionized Calcium 4.5 L Phosphorus Magnesium Total Bilirubin AST ALT Alkaline Phosphatase Ammonia Total Creatine Kinase CK-MB (CK-2) CK-MB (CK-2) Rel Index Total Protein Albumin Urine WBC (Auto) Vancomycin Trough Salicylates Acetaminophen Plasma/Serum Alcohol Crossmatch 11/23/19 11/24/19 11/24/19 06:32 04:35 04:35 WBC RBC Hgb Hct MCH RDW Plt Count Lymph % (Auto) [place] % (Auto) [place] # Baso # Seg Neutrophils % Seg Neuts % (Manual) Lymphocytes % (Manual) Monocytes % (Manual) Seg Neutrophils # Seg Neutrophils # Man Lymphocytes # (Manual) Monocytes # (Manual) Eosinophils # (Manual) Basophils # (Manual) PT INR APTT ABG pH ABG pO2 ABG HCO3 ABG O2 Saturation ABG Base Excess ABG Hemoglobin Oxyhemoglobin Sodium Potassium Chloride Carbon Dioxide BUN Creatinine Glucose POC Glucose Lactic Acid 3.30 H* Calcium Ionized Calcium Phosphorus Magnesium 1.40 L Total Bilirubin AST ALT Alkaline Phosphatase Ammonia 98.0 H Total Creatine Kinase CK-MB (CK-2) CK-MB (CK-2) Rel Index Total Protein Albumin Urine WBC (Auto) Vancomycin Trough Salicylates Acetaminophen Plasma/Serum Alcohol Crossmatch 11/24/19 11/25/19 11/25/19 05:22 04:34 05:05 WBC 17.3 H RBC 2.88 L Hgb 7.8 L Hct 24.6 L MCH 27 L RDW 18.5 H Plt Count Lymph % (Auto) 7.7 L [place] % (Auto) 9.7 H [place] # 1.7 H Baso # Seg Neutrophils % 82.2 H Seg Neuts % (Manual) Lymphocytes % (Manual) Monocytes % (Manual) Seg Neutrophils # 14.2 H Seg Neutrophils # Man Lymphocytes # (Manual) Monocytes # (Manual) Eosinophils # (Manual) Basophils # (Manual) PT INR APTT ABG pH 7.475 H ABG pO2 ABG HCO3 29.4 H 32.3 H ABG O2 Saturation ABG Base Excess 5.4 H 6.9 H ABG Hemoglobin 9.0 L 10.6 L Oxyhemoglobin 94.3 L Sodium Potassium Chloride Carbon Dioxide BUN Creatinine Glucose POC Glucose Lactic Acid Calcium Ionized Calcium Phosphorus Magnesium Total Bilirubin AST ALT Alkaline Phosphatase Ammonia Total Creatine Kinase CK-MB (CK-2) CK-MB (CK-2) Rel Index Total Protein Albumin Urine WBC (Auto) Vancomycin Trough Salicylates Acetaminophen Plasma/Serum Alcohol Crossmatch 11/25/19 11/25/19 11/26/19 05:05 22:46 03:31 WBC RBC Hgb Hct MCH RDW Plt Count Lymph % (Auto) [place] % (Auto) [place] # Baso # Seg Neutrophils % Seg Neuts % (Manual) Lymphocytes % (Manual) Monocytes % (Manual) Seg Neutrophils # Seg Neutrophils # Man Lymphocytes # (Manual) Monocytes # (Manual) Eosinophils # (Manual) Basophils # (Manual) PT INR APTT ABG pH 7.459 H ABG pO2 ABG HCO3 34.2 H ABG O2 Saturation ABG Base Excess 9.4 H ABG Hemoglobin 7.6 L Oxyhemoglobin 94.8 L Sodium 152 H D 147 H Potassium 2.3 L* D 2.8 L* D Chloride 107.8 H Carbon Dioxide 31 H D 33 H BUN Creatinine 0.6 L 0.6 L Glucose 148 H 177 H POC Glucose Lactic Acid Calcium Ionized Calcium Phosphorus Magnesium Total Bilirubin AST 105 H ALT 71 H Alkaline Phosphatase 155 H Ammonia Total Creatine Kinase CK-MB (CK-2) CK-MB (CK-2) Rel Index Total Protein 5.2 L D Albumin 2.9 L Urine WBC (Auto) Vancomycin Trough Salicylates Acetaminophen Plasma/Serum Alcohol Crossmatch 11/26/19 11/26/19 11/27/19 08:24 08:24 04:20 WBC 12.0 H RBC 3.00 L Hgb 8.0 L 9.3 L Hct 25.9 L 29.7 L MCH 27 L RDW 18.5 H Plt Count Lymph % (Auto) [place] % (Auto) [place] # Baso # Seg Neutrophils % Seg Neuts % (Manual) 89.0 H Lymphocytes % (Manual) 4.0 L Monocytes % (Manual) Seg Neutrophils # Seg Neutrophils # Man 10.7 H Lymphocytes # (Manual) 0.5 L Monocytes # (Manual) Eosinophils # (Manual) Basophils # (Manual) PT INR APTT ABG pH ABG pO2 ABG HCO3 ABG O2 Saturation ABG Base Excess ABG Hemoglobin Oxyhemoglobin Sodium 146 H Potassium 3.4 L D Chloride Carbon Dioxide BUN Creatinine 0.5 L Glucose 165 H POC Glucose Lactic Acid Calcium Ionized Calcium Phosphorus Magnesium Total Bilirubin AST 57 H ALT Alkaline Phosphatase 166 H Ammonia Total Creatine Kinase CK-MB (CK-2) CK-MB (CK-2) Rel Index Total Protein Albumin 2.9 L Urine WBC (Auto) Vancomycin Trough Salicylates Acetaminophen Plasma/Serum Alcohol Crossmatch 11/27/19 11/27/19 11/27/19 04:28 04:28 04:42 WBC RBC Hgb Hct MCH RDW Plt Count Lymph % (Auto) [place] % (Auto) [place] # Baso # Seg Neutrophils % Seg Neuts % (Manual) Lymphocytes % (Manual) Monocytes % (Manual) Seg Neutrophils # Seg Neutrophils # Man Lymphocytes # (Manual) Monocytes # (Manual) Eosinophils # (Manual) Basophils # (Manual) PT INR APTT ABG pH 7.470 H ABG pO2 74.0 L ABG HCO3 33.8 H ABG O2 Saturation ABG Base Excess 9.1 H ABG Hemoglobin 8.7 L Oxyhemoglobin 94.7 L Sodium 146 H Potassium 2.9 L* Chloride Carbon Dioxide BUN 25 H Creatinine Glucose 213 H POC Glucose Lactic Acid Calcium Ionized Calcium Phosphorus 1.00 L Magnesium Total Bilirubin AST ALT Alkaline Phosphatase Ammonia Total Creatine Kinase CK-MB (CK-2) CK-MB (CK-2) Rel Index Total Protein Albumin Urine WBC (Auto) Vancomycin Trough Salicylates Acetaminophen Plasma/Serum Alcohol Crossmatch 11/27/19 11/27/19 11/27/19 05:37 12:20 15:46 WBC RBC Hgb Hct MCH RDW Plt Count Lymph % (Auto) [place] % (Auto) [place] # Baso # Seg Neutrophils % Seg Neuts % (Manual) Lymphocytes % (Manual) Monocytes % (Manual) Seg Neutrophils # Seg Neutrophils # Man Lymphocytes # (Manual) Monocytes # (Manual) Eosinophils # (Manual) Basophils # (Manual) PT INR APTT ABG pH ABG pO2 ABG HCO3 ABG O2 Saturation ABG Base Excess ABG Hemoglobin Oxyhemoglobin Sodium 146 H Potassium 3.5 L D Chloride Carbon Dioxide BUN 24 H Creatinine 0.6 L Glucose 187 H POC Glucose 117 H 220 H Lactic Acid Calcium Ionized Calcium Phosphorus Magnesium Total Bilirubin AST ALT Alkaline Phosphatase Ammonia Total Creatine Kinase CK-MB (CK-2) CK-MB (CK-2) Rel Index Total Protein Albumin Urine WBC (Auto) Vancomycin Trough Salicylates Acetaminophen Plasma/Serum Alcohol Crossmatch 11/27/19 11/28/19 11/28/19 17:28 05:00 05:02 WBC RBC Hgb Hct MCH RDW Plt Count Lymph % (Auto) [place] % (Auto) [place] # Baso # Seg Neutrophils % Seg Neuts % (Manual) Lymphocytes % (Manual) Monocytes % (Manual) Seg Neutrophils # Seg Neutrophils # Man Lymphocytes # (Manual) Monocytes # (Manual) Eosinophils # (Manual) Basophils # (Manual) PT INR APTT ABG pH ABG pO2 72.4 L ABG HCO3 33.6 H ABG O2 Saturation 94.1 L ABG Base Excess 7.3 H ABG Hemoglobin Oxyhemoglobin 91.8 L Sodium 146 H Potassium 3.3 L Chloride Carbon Dioxide BUN 25 H Creatinine 0.6 L Glucose 176 H POC Glucose 198 H Lactic Acid Calcium Ionized Calcium Phosphorus Magnesium Total Bilirubin AST ALT Alkaline Phosphatase Ammonia Total Creatine Kinase CK-MB (CK-2) CK-MB (CK-2) Rel Index Total Protein Albumin Urine WBC (Auto) Vancomycin Trough Salicylates Acetaminophen Plasma/Serum Alcohol Crossmatch 11/28/19 11/28/19 11/29/19 05:02 18:55 10:43 WBC 15.2 H 19.0 H RBC 3.06 L 3.01 L Hgb 8.3 L 8.3 L Hct 27.0 L 26.4 L MCH 27 L RDW 19.0 H 19.7 H Plt Count 479 H 611 H Lymph % (Auto) [place] % (Auto) [place] # Baso # Seg Neutrophils % Seg Neuts % (Manual) 92.0 H Lymphocytes % (Manual) 2.0 L Monocytes % (Manual) Seg Neutrophils # Seg Neutrophils # Man 14.0 H Lymphocytes # (Manual) 0.3 L Monocytes # (Manual) Eosinophils # (Manual) Basophils # (Manual) PT INR APTT ABG pH ABG pO2 ABG HCO3 ABG O2 Saturation ABG Base Excess ABG Hemoglobin Oxyhemoglobin Sodium Potassium Chloride Carbon Dioxide BUN Creatinine Glucose POC Glucose 138 H Lactic Acid Calcium Ionized Calcium Phosphorus Magnesium Total Bilirubin AST ALT Alkaline Phosphatase Ammonia Total Creatine Kinase CK-MB (CK-2) CK-MB (CK-2) Rel Index Total Protein Albumin Urine WBC (Auto) Vancomycin Trough Salicylates Acetaminophen Plasma/Serum Alcohol Crossmatch 11/29/19 11/29/19 11/29/19 10:43 12:27 19:25 WBC RBC Hgb Hct MCH RDW Plt Count Lymph % (Auto) [place] % (Auto) [place] # Baso # Seg Neutrophils % Seg Neuts % (Manual) Lymphocytes % (Manual) Monocytes % (Manual) Seg Neutrophils # Seg Neutrophils # Man Lymphocytes # (Manual) Monocytes # (Manual) Eosinophils # (Manual) Basophils # (Manual) PT INR APTT ABG pH ABG pO2 ABG HCO3 ABG O2 Saturation ABG Base Excess ABG Hemoglobin Oxyhemoglobin Sodium Potassium 2.8 L* Chloride Carbon Dioxide BUN 20 H Creatinine 0.5 L Glucose 121 H POC Glucose 128 H 120 H Lactic Acid Calcium Ionized Calcium Phosphorus Magnesium Total Bilirubin AST ALT Alkaline Phosphatase Ammonia Total Creatine Kinase CK-MB (CK-2) CK-MB (CK-2) Rel Index Total Protein Albumin Urine WBC (Auto) Vancomycin Trough Salicylates Acetaminophen Plasma/Serum Alcohol Crossmatch 11/29/19 11/30/19 11/30/19 23:46 04:10 05:02 WBC RBC Hgb Hct MCH RDW Plt Count Lymph % (Auto) [place] % (Auto) [place] # Baso # Seg Neutrophils % Seg Neuts % (Manual) Lymphocytes % (Manual) Monocytes % (Manual) Seg Neutrophils # Seg Neutrophils # Man Lymphocytes # (Manual) Monocytes # (Manual) Eosinophils # (Manual) Basophils # (Manual) PT INR APTT ABG pH ABG pO2 76.3 L ABG HCO3 32.5 H ABG O2 Saturation ABG Base Excess 6.9 H ABG Hemoglobin 8.0 L Oxyhemoglobin 92.6 L Sodium Potassium Chloride Carbon Dioxide BUN Creatinine Glucose POC Glucose 116 H 128 H Lactic Acid Calcium Ionized Calcium Phosphorus Magnesium Total Bilirubin AST ALT Alkaline Phosphatase Ammonia Total Creatine Kinase CK-MB (CK-2) CK-MB (CK-2) Rel Index Total Protein Albumin Urine WBC (Auto) Vancomycin Trough Salicylates Acetaminophen Plasma/Serum Alcohol Crossmatch 11/30/19 11/30/19 11/30/19 05:25 05:25 12:59 WBC 18.4 H RBC 3.10 L Hgb 8.5 L Hct 27.5 L MCH 27 L RDW 20.9 H Plt Count 691 H Lymph % (Auto) 7.1 L [place] % (Auto) 7.7 H [place] # 1.4 H Baso # Seg Neutrophils % 83.4 H Seg Neuts % (Manual) Lymphocytes % (Manual) Monocytes % (Manual) Seg Neutrophils # 15.4 H Seg Neutrophils # Man Lymphocytes # (Manual) Monocytes # (Manual) Eosinophils # (Manual) Basophils # (Manual) PT INR APTT ABG pH ABG pO2 ABG HCO3 ABG O2 Saturation ABG Base Excess ABG Hemoglobin Oxyhemoglobin Sodium 146 H Potassium Chloride 107.2 H Carbon Dioxide BUN Creatinine 0.5 L Glucose 132 H POC Glucose 124 H Lactic Acid Calcium Ionized Calcium Phosphorus Magnesium Total Bilirubin AST 246 H ALT 274 H Alkaline Phosphatase 203 H Ammonia Total Creatine Kinase CK-MB (CK-2) CK-MB (CK-2) Rel Index Total Protein 5.4 L Albumin 2.9 L Urine WBC (Auto) Vancomycin Trough Salicylates Acetaminophen Plasma/Serum Alcohol Crossmatch 11/30/19 12/01/19 12/01/19 17:53 00:05 05:10 WBC RBC Hgb Hct MCH RDW Plt Count Lymph % (Auto) [place] % (Auto) [place] # Baso # Seg Neutrophils % Seg Neuts % (Manual) Lymphocytes % (Manual) Monocytes % (Manual) Seg Neutrophils # Seg Neutrophils # Man Lymphocytes # (Manual) Monocytes # (Manual) Eosinophils # (Manual) Basophils # (Manual) PT INR APTT ABG pH ABG pO2 ABG HCO3 ABG O2 Saturation ABG Base Excess ABG Hemoglobin Oxyhemoglobin Sodium Potassium Chloride Carbon Dioxide BUN Creatinine Glucose POC Glucose 113 H 143 H 145 H Lactic Acid Calcium Ionized Calcium Phosphorus Magnesium Total Bilirubin AST ALT Alkaline Phosphatase Ammonia Total Creatine Kinase CK-MB (CK-2) CK-MB (CK-2) Rel Index Total Protein Albumin Urine WBC (Auto) Vancomycin Trough Salicylates Acetaminophen Plasma/Serum Alcohol Crossmatch 12/01/19 12/01/19 12/01/19 05:33 08:23 08:23 WBC 22.7 H RBC 2.88 L Hgb 7.9 L Hct 25.2 L MCH 27 L RDW 21.0 H Plt Count 732 H Lymph % (Auto) [place] % (Auto) [place] # Baso # Seg Neutrophils % Seg Neuts % (Manual) 91.0 H Lymphocytes % (Manual) 3.0 L Monocytes % (Manual) Seg Neutrophils # Seg Neutrophils # Man 20.7 H Lymphocytes # (Manual) 0.7 L Monocytes # (Manual) 1.1 H Eosinophils # (Manual) Basophils # (Manual) PT INR APTT ABG pH ABG pO2 68.6 L ABG HCO3 34.1 H ABG O2 Saturation ABG Base Excess 9.0 H ABG Hemoglobin 6.5 L Oxyhemoglobin 94.7 L Sodium Potassium Chloride Carbon Dioxide BUN Creatinine 0.5 L Glucose 125 H POC Glucose Lactic Acid Calcium Ionized Calcium Phosphorus Magnesium Total Bilirubin AST ALT Alkaline Phosphatase Ammonia Total Creatine Kinase CK-MB (CK-2) CK-MB (CK-2) Rel Index Total Protein Albumin Urine WBC (Auto) Vancomycin Trough Salicylates Acetaminophen Plasma/Serum Alcohol Crossmatch 12/01/19 12/01/19 12/01/19 13:21 17:54 20:59 WBC RBC Hgb Hct MCH RDW Plt Count Lymph % (Auto) [place] % (Auto) [place] # Baso # Seg Neutrophils % Seg Neuts % (Manual) Lymphocytes % (Manual) Monocytes % (Manual) Seg Neutrophils # Seg Neutrophils # Man Lymphocytes # (Manual) Monocytes # (Manual) Eosinophils # (Manual) Basophils # (Manual) PT INR APTT ABG pH ABG pO2 78.3 L ABG HCO3 33.8 H ABG O2 Saturation 94.9 L ABG Base Excess 7.9 H ABG Hemoglobin 11.5 L Oxyhemoglobin 92.3 L Sodium Potassium Chloride Carbon Dioxide BUN Creatinine Glucose POC Glucose 111 H 115 H Lactic Acid Calcium Ionized Calcium Phosphorus Magnesium Total Bilirubin AST ALT Alkaline Phosphatase Ammonia Total Creatine Kinase CK-MB (CK-2) CK-MB (CK-2) Rel Index Total Protein Albumin Urine WBC (Auto) Vancomycin Trough Salicylates Acetaminophen Plasma/Serum Alcohol Crossmatch 12/02/19 12/03/19 12/04/19 12:55 20:00 04:26 WBC 15.2 H RBC 2.69 L Hgb 7.4 L Hct 23.6 L MCH 27 L RDW 19.9 H Plt Count 838 H Lymph % (Auto) [place] % (Auto) [place] # Baso # Seg Neutrophils % Seg Neuts % (Manual) Lymphocytes % (Manual) Monocytes % (Manual) Seg Neutrophils # Seg Neutrophils # Man Lymphocytes # (Manual) Monocytes # (Manual) Eosinophils # (Manual) Basophils # (Manual) PT INR APTT ABG pH ABG pO2 68.3 L ABG HCO3 33.5 H ABG O2 Saturation 93.5 L ABG Base Excess 8.4 H ABG Hemoglobin 7.3 L Oxyhemoglobin 90.9 L Sodium Potassium Chloride Carbon Dioxide BUN Creatinine Glucose POC Glucose 107 H Lactic Acid Calcium Ionized Calcium Phosphorus Magnesium Total Bilirubin AST ALT Alkaline Phosphatase Ammonia Total Creatine Kinase CK-MB (CK-2) CK-MB (CK-2) Rel Index Total Protein Albumin Urine WBC (Auto) Vancomycin Trough Salicylates Acetaminophen Plasma/Serum Alcohol Crossmatch 12/04/19 12/04/19 12/04/19 04:26 07:45 12:02 WBC 15.9 H RBC 2.88 L Hgb 7.9 L Hct 25.1 L MCH RDW 20.4 H Plt Count 839 H Lymph % (Auto) 11.3 L [place] % (Auto) 15.2 H [place] # 2.4 H Baso # Seg Neutrophils % 72.4 H Seg Neuts % (Manual) Lymphocytes % (Manual) Monocytes % (Manual) Seg Neutrophils # 11.5 H Seg Neutrophils # Man Lymphocytes # (Manual) Monocytes # (Manual) Eosinophils # (Manual) Basophils # (Manual) PT INR APTT ABG pH ABG pO2 ABG HCO3 ABG O2 Saturation ABG Base Excess ABG Hemoglobin Oxyhemoglobin Sodium Potassium Chloride 96.5 L Carbon Dioxide BUN 21 H Creatinine 0.6 L Glucose 107 H POC Glucose 138 H Lactic Acid Calcium Ionized Calcium Phosphorus Magnesium Total Bilirubin AST ALT Alkaline Phosphatase Ammonia Total Creatine Kinase CK-MB (CK-2) CK-MB (CK-2) Rel Index Total Protein Albumin Urine WBC (Auto) Vancomycin Trough Salicylates Acetaminophen Plasma/Serum Alcohol Crossmatch 12/04/19 12/05/19 12/05/19 18:16 11:55 18:36 WBC RBC Hgb Hct MCH RDW Plt Count Lymph % (Auto) [place] % (Auto) [place] # Baso # Seg Neutrophils % Seg Neuts % (Manual) Lymphocytes % (Manual) Monocytes % (Manual) Seg Neutrophils # Seg Neutrophils # Man Lymphocytes # (Manual) Monocytes # (Manual) Eosinophils # (Manual) Basophils # (Manual) PT INR APTT ABG pH ABG pO2 ABG HCO3 ABG O2 Saturation ABG Base Excess ABG Hemoglobin Oxyhemoglobin Sodium Potassium Chloride Carbon Dioxide BUN Creatinine Glucose POC Glucose 135 H 125 H 135 H Lactic Acid Calcium Ionized Calcium Phosphorus Magnesium Total Bilirubin AST ALT Alkaline Phosphatase Ammonia Total Creatine Kinase CK-MB (CK-2) CK-MB (CK-2) Rel Index Total Protein Albumin Urine WBC (Auto) Vancomycin Trough Salicylates Acetaminophen Plasma/Serum Alcohol Crossmatch 12/05/19 12/06/19 12/06/19 23:30 04:14 05:43 WBC RBC Hgb Hct MCH RDW Plt Count Lymph % (Auto) [place] % (Auto) [place] # Baso # Seg Neutrophils % Seg Neuts % (Manual) Lymphocytes % (Manual) Monocytes % (Manual) Seg Neutrophils # Seg Neutrophils # Man Lymphocytes # (Manual) Monocytes # (Manual) Eosinophils # (Manual) Basophils # (Manual) PT INR APTT ABG pH ABG pO2 ABG HCO3 ABG O2 Saturation ABG Base Excess ABG Hemoglobin Oxyhemoglobin Sodium Potassium 5.6 H Chloride 95.0 L Carbon Dioxide BUN 48 H Creatinine 1.3 H D Glucose POC Glucose 126 H 121 H Lactic Acid Calcium Ionized Calcium Phosphorus Magnesium Total Bilirubin AST 89 H ALT 98 H Alkaline Phosphatase 476 H Ammonia Total Creatine Kinase CK-MB (CK-2) CK-MB (CK-2) Rel Index Total Protein Albumin 2.8 L Urine WBC (Auto) Vancomycin Trough Salicylates Acetaminophen Plasma/Serum Alcohol Crossmatch 12/06/19 12/06/19 12/07/19 10:39 14:34 00:19 WBC 17.3 H RBC 2.60 L Hgb 7.1 L Hct 22.7 L MCH 27 L RDW 20.1 H Plt Count 832 H Lymph % (Auto) [place] % (Auto) [place] # Baso # Seg Neutrophils % Seg Neuts % (Manual) Lymphocytes % (Manual) Monocytes % (Manual) Seg Neutrophils # Seg Neutrophils # Man Lymphocytes # (Manual) Monocytes # (Manual) Eosinophils # (Manual) Basophils # (Manual) PT INR APTT ABG pH ABG pO2 ABG HCO3 ABG O2 Saturation ABG Base Excess ABG Hemoglobin Oxyhemoglobin Sodium Potassium Chloride Carbon Dioxide BUN Creatinine Glucose POC Glucose 128 H 136 H Lactic Acid Calcium Ionized Calcium Phosphorus Magnesium Total Bilirubin AST ALT Alkaline Phosphatase Ammonia Total Creatine Kinase CK-MB (CK-2) CK-MB (CK-2) Rel Index Total Protein Albumin Urine WBC (Auto) Vancomycin Trough Salicylates Acetaminophen Plasma/Serum Alcohol Crossmatch 12/07/19 12/07/19 12/07/19 03:44 03:44 05:53 WBC 16.2 H RBC 2.56 L Hgb 7.1 L Hct 22.3 L MCH RDW 19.4 H Plt Count 782 H Lymph % (Auto) [place] % (Auto) [place] # Baso # Seg Neutrophils % Seg Neuts % (Manual) Lymphocytes % (Manual) Monocytes % (Manual) Seg Neutrophils # Seg Neutrophils # Man Lymphocytes # (Manual) Monocytes # (Manual) Eosinophils # (Manual) Basophils # (Manual) PT INR APTT ABG pH ABG pO2 ABG HCO3 ABG O2 Saturation ABG Base Excess ABG Hemoglobin Oxyhemoglobin Sodium Potassium Chloride 95.6 L Carbon Dioxide BUN 56 H Creatinine 1.4 H Glucose 120 H POC Glucose 128 H Lactic Acid Calcium 10.3 H Ionized Calcium Phosphorus Magnesium Total Bilirubin AST ALT Alkaline Phosphatase Ammonia Total Creatine Kinase CK-MB (CK-2) CK-MB (CK-2) Rel Index Total Protein Albumin Urine WBC (Auto) Vancomycin Trough Salicylates Acetaminophen Plasma/Serum Alcohol Crossmatch 12/07/19 12/07/19 12/08/19 12:54 23:47 00:20 WBC RBC Hgb Hct MCH RDW Plt Count Lymph % (Auto) [place] % (Auto) [place] # Baso # Seg Neutrophils % Seg Neuts % (Manual) Lymphocytes % (Manual) Monocytes % (Manual) Seg Neutrophils # Seg Neutrophils # Man Lymphocytes # (Manual) Monocytes # (Manual) Eosinophils # (Manual) Basophils # (Manual) PT INR APTT ABG pH ABG pO2 ABG HCO3 ABG O2 Saturation ABG Base Excess ABG Hemoglobin Oxyhemoglobin Sodium Potassium Chloride Carbon Dioxide BUN Creatinine Glucose POC Glucose 128 H 130 H 124 H Lactic Acid Calcium Ionized Calcium Phosphorus Magnesium Total Bilirubin AST ALT Alkaline Phosphatase Ammonia Total Creatine Kinase CK-MB (CK-2) CK-MB (CK-2) Rel Index Total Protein Albumin Urine WBC (Auto) Vancomycin Trough Salicylates Acetaminophen Plasma/Serum Alcohol Crossmatch 12/08/19 12/08/19 12/08/19 06:38 12:04 18:26 WBC RBC Hgb Hct MCH RDW Plt Count Lymph % (Auto) [place] % (Auto) [place] # Baso # Seg Neutrophils % Seg Neuts % (Manual) Lymphocytes % (Manual) Monocytes % (Manual) Seg Neutrophils # Seg Neutrophils # Man Lymphocytes # (Manual) Monocytes # (Manual) Eosinophils # (Manual) Basophils # (Manual) PT INR APTT ABG pH ABG pO2 ABG HCO3 ABG O2 Saturation ABG Base Excess ABG Hemoglobin Oxyhemoglobin Sodium Potassium Chloride Carbon Dioxide BUN Creatinine Glucose POC Glucose 137 H 129 H 150 H Lactic Acid Calcium Ionized Calcium Phosphorus Magnesium Total Bilirubin AST ALT Alkaline Phosphatase Ammonia Total Creatine Kinase CK-MB (CK-2) CK-MB (CK-2) Rel Index Total Protein Albumin Urine WBC (Auto) Vancomycin Trough Salicylates Acetaminophen Plasma/Serum Alcohol Crossmatch 12/09/19 12/09/19 12/09/19 00:56 05:34 06:13 WBC RBC Hgb Hct MCH RDW Plt Count Lymph % (Auto) [place] % (Auto) [place] # Baso # Seg Neutrophils % Seg Neuts % (Manual) Lymphocytes % (Manual) Monocytes % (Manual) Seg Neutrophils # Seg Neutrophils # Man Lymphocytes # (Manual) Monocytes # (Manual) Eosinophils # (Manual) Basophils # (Manual) PT INR APTT ABG pH ABG pO2 ABG HCO3 ABG O2 Saturation ABG Base Excess ABG Hemoglobin Oxyhemoglobin Sodium 146 H Potassium Chloride Carbon Dioxide BUN 66 H Creatinine 1.9 H Glucose 116 H POC Glucose 130 H 130 H Lactic Acid Calcium Ionized Calcium Phosphorus Magnesium Total Bilirubin AST ALT Alkaline Phosphatase Ammonia Total Creatine Kinase CK-MB (CK-2) CK-MB (CK-2) Rel Index Total Protein Albumin Urine WBC (Auto) Vancomycin Trough Salicylates Acetaminophen Plasma/Serum Alcohol Crossmatch 12/09/19 12/09/19 12/10/19 11:52 17:50 00:14 WBC RBC Hgb Hct MCH RDW Plt Count Lymph % (Auto) [place] % (Auto) [place] # Baso # Seg Neutrophils % Seg Neuts % (Manual) Lymphocytes % (Manual) Monocytes % (Manual) Seg Neutrophils # Seg Neutrophils # Man Lymphocytes # (Manual) Monocytes # (Manual) Eosinophils # (Manual) Basophils # (Manual) PT INR APTT ABG pH ABG pO2 ABG HCO3 ABG O2 Saturation ABG Base Excess ABG Hemoglobin Oxyhemoglobin Sodium Potassium Chloride Carbon Dioxide BUN Creatinine Glucose POC Glucose 135 H 120 H 116 H Lactic Acid Calcium Ionized Calcium Phosphorus Magnesium Total Bilirubin AST ALT Alkaline Phosphatase Ammonia Total Creatine Kinase CK-MB (CK-2) CK-MB (CK-2) Rel Index Total Protein Albumin Urine WBC (Auto) Vancomycin Trough Salicylates Acetaminophen Plasma/Serum Alcohol Crossmatch 12/10/19 12/10/19 12/10/19 05:38 11:38 17:34 WBC RBC Hgb Hct MCH RDW Plt Count Lymph % (Auto) [place] % (Auto) [place] # Baso # Seg Neutrophils % Seg Neuts % (Manual) Lymphocytes % (Manual) Monocytes % (Manual) Seg Neutrophils # Seg Neutrophils # Man Lymphocytes # (Manual) Monocytes # (Manual) Eosinophils # (Manual) Basophils # (Manual) PT INR APTT ABG pH ABG pO2 ABG HCO3 ABG O2 Saturation ABG Base Excess ABG Hemoglobin Oxyhemoglobin Sodium Potassium Chloride Carbon Dioxide BUN Creatinine Glucose POC Glucose 115 H 112 H 130 H Lactic Acid Calcium Ionized Calcium Phosphorus Magnesium Total Bilirubin AST ALT Alkaline Phosphatase Ammonia Total Creatine Kinase CK-MB (CK-2) CK-MB (CK-2) Rel Index Total Protein Albumin Urine WBC (Auto) Vancomycin Trough Salicylates Acetaminophen Plasma/Serum Alcohol Crossmatch 12/11/19 12/11/19 12/11/19 00:20 05:31 12:22 WBC RBC Hgb Hct MCH RDW Plt Count Lymph % (Auto) [place] % (Auto) [place] # Baso # Seg Neutrophils % Seg Neuts % (Manual) Lymphocytes % (Manual) Monocytes % (Manual) Seg Neutrophils # Seg Neutrophils # Man Lymphocytes # (Manual) Monocytes # (Manual) Eosinophils # (Manual) Basophils # (Manual) PT INR APTT ABG pH ABG pO2 ABG HCO3 ABG O2 Saturation ABG Base Excess ABG Hemoglobin Oxyhemoglobin Sodium Potassium Chloride Carbon Dioxide BUN Creatinine Glucose POC Glucose 124 H 132 H 128 H Lactic Acid Calcium Ionized Calcium Phosphorus Magnesium Total Bilirubin AST ALT Alkaline Phosphatase Ammonia Total Creatine Kinase CK-MB (CK-2) CK-MB (CK-2) Rel Index Total Protein Albumin Urine WBC (Auto) Vancomycin Trough Salicylates Acetaminophen Plasma/Serum Alcohol Crossmatch 12/11/19 12/11/19 12/12/19 18:04 23:42 03:51 WBC RBC Hgb Hct MCH RDW Plt Count Lymph % (Auto) [place] % (Auto) [place] # Baso # Seg Neutrophils % Seg Neuts % (Manual) Lymphocytes % (Manual) Monocytes % (Manual) Seg Neutrophils # Seg Neutrophils # Man Lymphocytes # (Manual) Monocytes # (Manual) Eosinophils # (Manual) Basophils # (Manual) PT INR APTT ABG pH ABG pO2 ABG HCO3 ABG O2 Saturation ABG Base Excess ABG Hemoglobin Oxyhemoglobin Sodium 149 H Potassium Chloride Carbon Dioxide 20 L D BUN 77 H Creatinine 2.8 H Glucose POC Glucose 133 H 154 H Lactic Acid Calcium Ionized Calcium Phosphorus Magnesium Total Bilirubin AST ALT Alkaline Phosphatase Ammonia Total Creatine Kinase CK-MB (CK-2) CK-MB (CK-2) Rel Index Total Protein Albumin Urine WBC (Auto) Vancomycin Trough Salicylates Acetaminophen Plasma/Serum Alcohol Crossmatch 12/12/19 12/12/19 12/12/19 05:18 05:26 10:30 WBC 18.0 H RBC 2.51 L Hgb 6.8 L Hct 22.0 L MCH 27 L RDW 19.9 H Plt Count 582 H Lymph % (Auto) [place] % (Auto) [place] # Baso # Seg Neutrophils % Seg Neuts % (Manual) Lymphocytes % (Manual) Monocytes % (Manual) Seg Neutrophils # Seg Neutrophils # Man Lymphocytes # (Manual) Monocytes # (Manual) Eosinophils # (Manual) Basophils # (Manual) PT INR APTT ABG pH ABG pO2 ABG HCO3 ABG O2 Saturation ABG Base Excess ABG Hemoglobin Oxyhemoglobin Sodium Potassium Chloride Carbon Dioxide BUN Creatinine Glucose POC Glucose 135 H Lactic Acid Calcium Ionized Calcium Phosphorus Magnesium Total Bilirubin AST ALT Alkaline Phosphatase Ammonia Total Creatine Kinase CK-MB (CK-2) CK-MB (CK-2) Rel Index Total Protein Albumin Urine WBC (Auto) Vancomycin Trough Salicylates Acetaminophen Plasma/Serum Alcohol Crossmatch See Detail 12/12/19 12/12/19 12/12/19 11:44 18:10 23:21 WBC RBC Hgb Hct MCH RDW Plt Count Lymph % (Auto) [place] % (Auto) [place] # Baso # Seg Neutrophils % Seg Neuts % (Manual) Lymphocytes % (Manual) Monocytes % (Manual) Seg Neutrophils # Seg Neutrophils # Man Lymphocytes # (Manual) Monocytes # (Manual) Eosinophils # (Manual) Basophils # (Manual) PT INR APTT ABG pH ABG pO2 ABG HCO3 ABG O2 Saturation ABG Base Excess ABG Hemoglobin Oxyhemoglobin Sodium Potassium Chloride Carbon Dioxide BUN Creatinine Glucose POC Glucose 108 H 107 H 126 H Lactic Acid Calcium Ionized Calcium Phosphorus Magnesium Total Bilirubin AST ALT Alkaline Phosphatase Ammonia Total Creatine Kinase CK-MB (CK-2) CK-MB (CK-2) Rel Index Total Protein Albumin Urine WBC (Auto) Vancomycin Trough Salicylates Acetaminophen Plasma/Serum Alcohol Crossmatch 12/13/19 12/13/19 12/13/19 05:41 07:48 07:48 WBC 38.3 H RBC 2.37 L Hgb 6.3 L Hct 20.9 L MCH 27 L RDW 20.2 H Plt Count 546 H Lymph % (Auto) [place] % (Auto) [place] # Baso # Seg Neutrophils % Seg Neuts % (Manual) 93.0 H Lymphocytes % (Manual) 1.0 L Monocytes % (Manual) Seg Neutrophils # Seg Neutrophils # Man 35.6 H Lymphocytes # (Manual) 0.4 L Monocytes # (Manual) Eosinophils # (Manual) Basophils # (Manual) 0.4 H PT INR APTT ABG pH ABG pO2 ABG HCO3 ABG O2 Saturation ABG Base Excess ABG Hemoglobin Oxyhemoglobin Sodium 152 H Potassium 3.1 L D Chloride 111.9 H Carbon Dioxide 21 L BUN 53 H Creatinine 1.9 H Glucose 141 H POC Glucose 128 H Lactic Acid Calcium Ionized Calcium Phosphorus Magnesium Total Bilirubin AST ALT Alkaline Phosphatase 316 H Ammonia Total Creatine Kinase CK-MB (CK-2) CK-MB (CK-2) Rel Index Total Protein Albumin 2.4 L Urine WBC (Auto) Vancomycin Trough Salicylates Acetaminophen Plasma/Serum Alcohol Crossmatch 12/13/19 12/13/19 12/14/19 18:17 23:19 05:36 WBC RBC Hgb Hct MCH RDW Plt Count Lymph % (Auto) [place] % (Auto) [place] # Baso # Seg Neutrophils % Seg Neuts % (Manual) Lymphocytes % (Manual) Monocytes % (Manual) Seg Neutrophils # Seg Neutrophils # Man Lymphocytes # (Manual) Monocytes # (Manual) Eosinophils # (Manual) Basophils # (Manual) PT INR APTT ABG pH ABG pO2 ABG HCO3 ABG O2 Saturation ABG Base Excess ABG Hemoglobin Oxyhemoglobin Sodium Potassium Chloride Carbon Dioxide BUN Creatinine Glucose POC Glucose 141 H 158 H 182 H Lactic Acid Calcium Ionized Calcium Phosphorus Magnesium Total Bilirubin AST ALT Alkaline Phosphatase Ammonia Total Creatine Kinase CK-MB (CK-2) CK-MB (CK-2) Rel Index Total Protein Albumin Urine WBC (Auto) Vancomycin Trough Salicylates Acetaminophen Plasma/Serum Alcohol Crossmatch 12/14/19 12/14/19 12/14/19 08:48 08:48 10:31 WBC 33.3 H RBC 2.70 L Hgb 7.9 L 8.0 L Hct 25.3 L 24.0 L MCH RDW 19.2 H Plt Count 476 H Lymph % (Auto) [place] % (Auto) [place] # Baso # Seg Neutrophils % Seg Neuts % (Manual) Lymphocytes % (Manual) Monocytes % (Manual) Seg Neutrophils # Seg Neutrophils # Man Lymphocytes # (Manual) Monocytes # (Manual) Eosinophils # (Manual) Basophils # (Manual) PT INR APTT ABG pH ABG pO2 ABG HCO3 ABG O2 Saturation ABG Base Excess ABG Hemoglobin Oxyhemoglobin Sodium 153 H Potassium 2.5 L* Chloride 114.9 H Carbon Dioxide 20 L BUN 38 H Creatinine 1.4 H Glucose 177 H POC Glucose Lactic Acid Calcium Ionized Calcium Phosphorus Magnesium Total Bilirubin AST ALT Alkaline Phosphatase Ammonia Total Creatine Kinase CK-MB (CK-2) CK-MB (CK-2) Rel Index Total Protein Albumin Urine WBC (Auto) Vancomycin Trough Salicylates Acetaminophen Plasma/Serum Alcohol Crossmatch 12/14/19 12/14/19 12/14/19 12:57 16:15 17:50 WBC RBC Hgb Hct MCH RDW Plt Count Lymph % (Auto) [place] % (Auto) [place] # Baso # Seg Neutrophils % Seg Neuts % (Manual) Lymphocytes % (Manual) Monocytes % (Manual) Seg Neutrophils # Seg Neutrophils # Man Lymphocytes # (Manual) Monocytes # (Manual) Eosinophils # (Manual) Basophils # (Manual) PT INR APTT ABG pH ABG pO2 73.6 L ABG HCO3 ABG O2 Saturation ABG Base Excess ABG Hemoglobin 7.6 L Oxyhemoglobin 94.0 L Sodium Potassium Chloride Carbon Dioxide BUN Creatinine Glucose POC Glucose 174 H 150 H Lactic Acid Calcium Ionized Calcium Phosphorus Magnesium Total Bilirubin AST ALT Alkaline Phosphatase Ammonia Total Creatine Kinase CK-MB (CK-2) CK-MB (CK-2) Rel Index Total Protein Albumin Urine WBC (Auto) Vancomycin Trough Salicylates Acetaminophen Plasma/Serum Alcohol Crossmatch 12/15/19 12/15/19 12/15/19 00:28 05:27 07:23 WBC 30.0 H RBC 3.11 L Hgb 8.6 L Hct 27.7 L MCH RDW 20.0 H Plt Count 473 H Lymph % (Auto) [place] % (Auto) [place] # Baso # Seg Neutrophils % Seg Neuts % (Manual) Lymphocytes % (Manual) Monocytes % (Manual) Seg Neutrophils # Seg Neutrophils # Man Lymphocytes # (Manual) Monocytes # (Manual) Eosinophils # (Manual) Basophils # (Manual) PT INR APTT ABG pH ABG pO2 ABG HCO3 ABG O2 Saturation ABG Base Excess ABG Hemoglobin Oxyhemoglobin Sodium Potassium Chloride Carbon Dioxide BUN Creatinine Glucose POC Glucose 167 H 148 H Lactic Acid Calcium Ionized Calcium Phosphorus Magnesium Total Bilirubin AST ALT Alkaline Phosphatase Ammonia Total Creatine Kinase CK-MB (CK-2) CK-MB (CK-2) Rel Index Total Protein Albumin Urine WBC (Auto) Vancomycin Trough Salicylates Acetaminophen Plasma/Serum Alcohol Crossmatch 12/15/19 12/15/19 12/15/19 07:23 12:21 17:41 WBC RBC Hgb Hct MCH RDW Plt Count Lymph % (Auto) [place] % (Auto) [place] # Baso # Seg Neutrophils % Seg Neuts % (Manual) Lymphocytes % (Manual) Monocytes % (Manual) Seg Neutrophils # Seg Neutrophils # Man Lymphocytes # (Manual) Monocytes # (Manual) Eosinophils # (Manual) Basophils # (Manual) PT INR APTT ABG pH ABG pO2 ABG HCO3 ABG O2 Saturation ABG Base Excess ABG Hemoglobin Oxyhemoglobin Sodium 147 H Potassium 3.5 L D Chloride 111.2 H Carbon Dioxide 19 L BUN 29 H Creatinine Glucose 126 H POC Glucose 154 H 144 H Lactic Acid Calcium Ionized Calcium Phosphorus Magnesium Total Bilirubin AST ALT Alkaline Phosphatase Ammonia Total Creatine Kinase CK-MB (CK-2) CK-MB (CK-2) Rel Index Total Protein Albumin Urine WBC (Auto) Vancomycin Trough Salicylates Acetaminophen Plasma/Serum Alcohol Crossmatch 12/16/19 12/16/19 12/16/19 00:22 05:30 05:44 WBC 30.8 H RBC 2.58 L Hgb 7.1 L Hct 22.7 L MCH RDW 19.6 H Plt Count 451 H Lymph % (Auto) [place] % (Auto) [place] # Baso # Seg Neutrophils % Seg Neuts % (Manual) Lymphocytes % (Manual) Monocytes % (Manual) Seg Neutrophils # Seg Neutrophils # Man Lymphocytes # (Manual) Monocytes # (Manual) Eosinophils # (Manual) Basophils # (Manual) PT INR APTT ABG pH ABG pO2 ABG HCO3 ABG O2 Saturation ABG Base Excess ABG Hemoglobin Oxyhemoglobin Sodium Potassium Chloride Carbon Dioxide BUN Creatinine Glucose POC Glucose 139 H 126 H Lactic Acid Calcium Ionized Calcium Phosphorus Magnesium Total Bilirubin AST ALT Alkaline Phosphatase Ammonia Total Creatine Kinase CK-MB (CK-2) CK-MB (CK-2) Rel Index Total Protein Albumin Urine WBC (Auto) Vancomycin Trough Salicylates Acetaminophen Plasma/Serum Alcohol Crossmatch 12/16/19 12/16/19 12/16/19 05:44 11:48 17:37 WBC RBC Hgb Hct MCH RDW Plt Count Lymph % (Auto) [place] % (Auto) [place] # Baso # Seg Neutrophils % Seg Neuts % (Manual) Lymphocytes % (Manual) Monocytes % (Manual) Seg Neutrophils # Seg Neutrophils # Man Lymphocytes # (Manual) Monocytes # (Manual) Eosinophils # (Manual) Basophils # (Manual) PT INR APTT ABG pH ABG pO2 ABG HCO3 ABG O2 Saturation ABG Base Excess ABG Hemoglobin Oxyhemoglobin Sodium Potassium 3.4 L Chloride 109.2 H Carbon Dioxide 19 L BUN 27 H Creatinine Glucose 124 H POC Glucose 125 H 148 H Lactic Acid Calcium Ionized Calcium Phosphorus Magnesium Total Bilirubin AST ALT Alkaline Phosphatase Ammonia Total Creatine Kinase CK-MB (CK-2) CK-MB (CK-2) Rel Index Total Protein Albumin Urine WBC (Auto) Vancomycin Trough Salicylates Acetaminophen Plasma/Serum Alcohol Crossmatch 12/16/19 12/17/19 12/17/19 23:43 05:28 12:47 WBC RBC Hgb Hct MCH RDW Plt Count Lymph % (Auto) [place] % (Auto) [place] # Baso # Seg Neutrophils % Seg Neuts % (Manual) Lymphocytes % (Manual) Monocytes % (Manual) Seg Neutrophils # Seg Neutrophils # Man Lymphocytes # (Manual) Monocytes # (Manual) Eosinophils # (Manual) Basophils # (Manual) PT INR APTT ABG pH ABG pO2 ABG HCO3 ABG O2 Saturation ABG Base Excess ABG Hemoglobin Oxyhemoglobin Sodium Potassium Chloride Carbon Dioxide BUN Creatinine Glucose POC Glucose 142 H 140 H 125 H Lactic Acid Calcium Ionized Calcium Phosphorus Magnesium Total Bilirubin AST ALT Alkaline Phosphatase Ammonia Total Creatine Kinase CK-MB (CK-2) CK-MB (CK-2) Rel Index Total Protein Albumin Urine WBC (Auto) Vancomycin Trough Salicylates Acetaminophen Plasma/Serum Alcohol Crossmatch 12/17/19 12/17/19 12/17/19 17:05 18:00 Unknown WBC RBC Hgb Hct MCH RDW Plt Count Lymph % (Auto) [place] % (Auto) [place] # Baso # Seg Neutrophils % Seg Neuts % (Manual) Lymphocytes % (Manual) Monocytes % (Manual) Seg Neutrophils # Seg Neutrophils # Man Lymphocytes # (Manual) Monocytes # (Manual) Eosinophils # (Manual) Basophils # (Manual) PT INR APTT ABG pH ABG pO2 68.1 L ABG HCO3 ABG O2 Saturation 93.7 L ABG Base Excess ABG Hemoglobin 5.0 L Oxyhemoglobin 91.7 L Sodium Potassium Chloride Carbon Dioxide BUN Creatinine Glucose POC Glucose 140 H Lactic Acid Calcium Ionized Calcium Phosphorus Magnesium Total Bilirubin AST ALT Alkaline Phosphatase Ammonia Total Creatine Kinase CK-MB (CK-2) CK-MB (CK-2) Rel Index Total Protein Albumin Urine WBC (Auto) Vancomycin Trough Salicylates Acetaminophen Plasma/Serum Alcohol Crossmatch 12/18/19 12/18/19 12/18/19 00:16 04:53 04:53 WBC 28.6 H RBC 2.27 L Hgb 6.3 L Hct 19.5 L* MCH RDW 20.0 H Plt Count 497 H Lymph % (Auto) [place] % (Auto) [place] # Baso # Seg Neutrophils % Seg Neuts % (Manual) Lymphocytes % (Manual) Monocytes % (Manual) Seg Neutrophils # Seg Neutrophils # Man Lymphocytes # (Manual) Monocytes # (Manual) Eosinophils # (Manual) Basophils # (Manual) PT INR APTT ABG pH ABG pO2 ABG HCO3 ABG O2 Saturation ABG Base Excess ABG Hemoglobin Oxyhemoglobin Sodium Potassium Chloride 107.9 H Carbon Dioxide 20 L BUN 27 H Creatinine 0.6 L Glucose 116 H POC Glucose 123 H Lactic Acid Calcium Ionized Calcium Phosphorus Magnesium Total Bilirubin AST ALT Alkaline Phosphatase Ammonia Total Creatine Kinase CK-MB (CK-2) CK-MB (CK-2) Rel Index Total Protein Albumin Urine WBC (Auto) Vancomycin Trough Salicylates Acetaminophen Plasma/Serum Alcohol Crossmatch 12/18/19 12/18/19 12/18/19 06:38 11:22 12:08 WBC RBC Hgb Hct MCH RDW Plt Count Lymph % (Auto) [place] % (Auto) [place] # Baso # Seg Neutrophils % Seg Neuts % (Manual) Lymphocytes % (Manual) Monocytes % (Manual) Seg Neutrophils # Seg Neutrophils # Man Lymphocytes # (Manual) Monocytes # (Manual) Eosinophils # (Manual) Basophils # (Manual) PT INR APTT ABG pH ABG pO2 ABG HCO3 ABG O2 Saturation ABG Base Excess ABG Hemoglobin Oxyhemoglobin Sodium Potassium Chloride Carbon Dioxide BUN Creatinine Glucose POC Glucose 120 H 127 H Lactic Acid Calcium Ionized Calcium Phosphorus Magnesium Total Bilirubin AST ALT Alkaline Phosphatase Ammonia Total Creatine Kinase CK-MB (CK-2) CK-MB (CK-2) Rel Index Total Protein Albumin Urine WBC (Auto) Vancomycin Trough Salicylates Acetaminophen Plasma/Serum Alcohol Crossmatch See Detail 12/18/19 12/18/19 12/18/19 14:05 17:49 23:53 WBC RBC Hgb Hct MCH RDW Plt Count Lymph % (Auto) [place] % (Auto) [place] # Baso # Seg Neutrophils % Seg Neuts % (Manual) Lymphocytes % (Manual) Monocytes % (Manual) Seg Neutrophils # Seg Neutrophils # Man Lymphocytes # (Manual) Monocytes # (Manual) Eosinophils # (Manual) Basophils # (Manual) PT INR APTT ABG pH 7.267 L ABG pO2 69.8 L ABG HCO3 ABG O2 Saturation 88.4 L ABG Base Excess ABG Hemoglobin 7.1 L Oxyhemoglobin 86.4 L Sodium Potassium Chloride Carbon Dioxide BUN Creatinine Glucose POC Glucose 157 H 128 H Lactic Acid Calcium Ionized Calcium Phosphorus Magnesium Total Bilirubin AST ALT Alkaline Phosphatase Ammonia Total Creatine Kinase CK-MB (CK-2) CK-MB (CK-2) Rel Index Total Protein Albumin Urine WBC (Auto) Vancomycin Trough Salicylates Acetaminophen Plasma/Serum Alcohol Crossmatch 12/19/19 12/19/19 12/19/19 03:37 03:37 05:25 WBC 31.3 H RBC 2.60 L Hgb 7.6 L Hct 23.0 L MCH RDW 19.4 H Plt Count 530 H Lymph % (Auto) [place] % (Auto) [place] # Baso # Seg Neutrophils % Seg Neuts % (Manual) Lymphocytes % (Manual) Monocytes % (Manual) Seg Neutrophils # Seg Neutrophils # Man Lymphocytes # (Manual) Monocytes # (Manual) Eosinophils # (Manual) Basophils # (Manual) PT INR APTT ABG pH ABG pO2 ABG HCO3 ABG O2 Saturation ABG Base Excess ABG Hemoglobin Oxyhemoglobin Sodium Potassium Chloride Carbon Dioxide 18 L BUN 36 H Creatinine Glucose 111 H POC Glucose 123 H Lactic Acid Calcium Ionized Calcium Phosphorus Magnesium Total Bilirubin AST ALT Alkaline Phosphatase Ammonia Total Creatine Kinase CK-MB (CK-2) CK-MB (CK-2) Rel Index Total Protein Albumin Urine WBC (Auto) Vancomycin Trough Salicylates Acetaminophen Plasma/Serum Alcohol Crossmatch 12/19/19 12/19/19 12/20/19 12:59 18:33 00:00 WBC RBC Hgb Hct MCH RDW Plt Count Lymph % (Auto) [place] % (Auto) [place] # Baso # Seg Neutrophils % Seg Neuts % (Manual) Lymphocytes % (Manual) Monocytes % (Manual) Seg Neutrophils # Seg Neutrophils # Man Lymphocytes # (Manual) Monocytes # (Manual) Eosinophils # (Manual) Basophils # (Manual) PT INR APTT ABG pH ABG pO2 ABG HCO3 ABG O2 Saturation ABG Base Excess ABG Hemoglobin Oxyhemoglobin Sodium Potassium Chloride Carbon Dioxide BUN Creatinine Glucose POC Glucose 130 H 118 H 135 H Lactic Acid Calcium Ionized Calcium Phosphorus Magnesium Total Bilirubin AST ALT Alkaline Phosphatase Ammonia Total Creatine Kinase CK-MB (CK-2) CK-MB (CK-2) Rel Index Total Protein Albumin Urine WBC (Auto) Vancomycin Trough Salicylates Acetaminophen Plasma/Serum Alcohol Crossmatch 12/20/19 12/20/19 12/20/19 05:46 12:31 18:07 WBC RBC Hgb Hct MCH RDW Plt Count Lymph % (Auto) [place] % (Auto) [place] # Baso # Seg Neutrophils % Seg Neuts % (Manual) Lymphocytes % (Manual) Monocytes % (Manual) Seg Neutrophils # Seg Neutrophils # Man Lymphocytes # (Manual) Monocytes # (Manual) Eosinophils # (Manual) Basophils # (Manual) PT INR APTT ABG pH ABG pO2 ABG HCO3 ABG O2 Saturation ABG Base Excess ABG Hemoglobin Oxyhemoglobin Sodium Potassium Chloride Carbon Dioxide BUN Creatinine Glucose POC Glucose 131 H 128 H 134 H Lactic Acid Calcium Ionized Calcium Phosphorus Magnesium Total Bilirubin AST ALT Alkaline Phosphatase Ammonia Total Creatine Kinase CK-MB (CK-2) CK-MB (CK-2) Rel Index Total Protein Albumin Urine WBC (Auto) Vancomycin Trough Salicylates Acetaminophen Plasma/Serum Alcohol Crossmatch 12/21/19 12/21/19 12/21/19 03:28 03:28 07:21 WBC 29.4 H RBC 2.30 L Hgb 6.8 L Hct 20.2 L MCH RDW 20.2 H Plt Count 746 H Lymph % (Auto) [place] % (Auto) [place] # Baso # Seg Neutrophils % Seg Neuts % (Manual) 85.0 H Lymphocytes % (Manual) 8.0 L Monocytes % (Manual) Seg Neutrophils # Seg Neutrophils # Man 25.0 H Lymphocytes # (Manual) Monocytes # (Manual) 1.5 H Eosinophils # (Manual) 0.6 H Basophils # (Manual) PT INR APTT ABG pH ABG pO2 ABG HCO3 ABG O2 Saturation ABG Base Excess ABG Hemoglobin Oxyhemoglobin Sodium Potassium Chloride Carbon Dioxide 17 L BUN 57 H Creatinine 1.4 H D Glucose POC Glucose 124 H Lactic Acid Calcium Ionized Calcium Phosphorus Magnesium Total Bilirubin AST ALT Alkaline Phosphatase Ammonia Total Creatine Kinase CK-MB (CK-2) CK-MB (CK-2) Rel Index Total Protein Albumin Urine WBC (Auto) Vancomycin Trough Salicylates Acetaminophen Plasma/Serum Alcohol Crossmatch 12/21/19 12/21/19 12/21/19 08:56 12:06 14:53 WBC RBC Hgb 7.2 L Hct 22.9 L MCH RDW Plt Count Lymph % (Auto) [place] % (Auto) [place] # Baso # Seg Neutrophils % Seg Neuts % (Manual) Lymphocytes % (Manual) Monocytes % (Manual) Seg Neutrophils # Seg Neutrophils # Man Lymphocytes # (Manual) Monocytes # (Manual) Eosinophils # (Manual) Basophils # (Manual) PT INR APTT ABG pH ABG pO2 ABG HCO3 ABG O2 Saturation ABG Base Excess ABG Hemoglobin Oxyhemoglobin Sodium Potassium Chloride Carbon Dioxide BUN Creatinine Glucose POC Glucose 116 H Lactic Acid Calcium Ionized Calcium Phosphorus Magnesium Total Bilirubin AST ALT Alkaline Phosphatase Ammonia Total Creatine Kinase CK-MB (CK-2) CK-MB (CK-2) Rel Index Total Protein Albumin Urine WBC (Auto) Vancomycin Trough 33.8 H Salicylates Acetaminophen Plasma/Serum Alcohol Crossmatch 12/21/19 12/21/19 12/21/19 14:54 17:27 23:49 WBC RBC Hgb Hct MCH RDW Plt Count Lymph % (Auto) [place] % (Auto) [place] # Baso # Seg Neutrophils % Seg Neuts % (Manual) Lymphocytes % (Manual) Monocytes % (Manual) Seg Neutrophils # Seg Neutrophils # Man Lymphocytes # (Manual) Monocytes # (Manual) Eosinophils # (Manual) Basophils # (Manual) PT INR APTT ABG pH ABG pO2 ABG HCO3 ABG O2 Saturation ABG Base Excess ABG Hemoglobin Oxyhemoglobin Sodium Potassium Chloride Carbon Dioxide BUN Creatinine Glucose POC Glucose 145 H 127 H Lactic Acid Calcium Ionized Calcium Phosphorus Magnesium Total Bilirubin AST ALT Alkaline Phosphatase Ammonia Total Creatine Kinase CK-MB (CK-2) CK-MB (CK-2) Rel Index Total Protein Albumin Urine WBC (Auto) Vancomycin Trough Salicylates Acetaminophen Plasma/Serum Alcohol Crossmatch See Detail 12/22/19 12/22/19 12/22/19 04:43 05:56 08:40 WBC RBC Hgb Hct MCH RDW Plt Count Lymph % (Auto) [place] % (Auto) [place] # Baso # Seg Neutrophils % Seg Neuts % (Manual) Lymphocytes % (Manual) Monocytes % (Manual) Seg Neutrophils # Seg Neutrophils # Man Lymphocytes # (Manual) Monocytes # (Manual) Eosinophils # (Manual) Basophils # (Manual) PT INR APTT ABG pH ABG pO2 75.6 L ABG HCO3 ABG O2 Saturation ABG Base Excess -2.6 L ABG Hemoglobin 6.8 L Oxyhemoglobin 94.6 L Sodium Potassium Chloride Carbon Dioxide 17 L BUN 60 H Creatinine 1.4 H Glucose 126 H POC Glucose 153 H Lactic Acid Calcium Ionized Calcium Phosphorus Magnesium Total Bilirubin AST ALT Alkaline Phosphatase Ammonia Total Creatine Kinase CK-MB (CK-2) CK-MB (CK-2) Rel Index Total Protein Albumin Urine WBC (Auto) Vancomycin Trough Salicylates Acetaminophen Plasma/Serum Alcohol Crossmatch 12/22/19 12/22/19 12/23/19 12:07 17:49 04:30 WBC 22.4 H RBC 2.68 L Hgb 7.6 L Hct 22.9 L MCH RDW 19.9 H Plt Count 998 H Lymph % (Auto) [place] % (Auto) [place] # Baso # Seg Neutrophils % Seg Neuts % (Manual) 88.0 H Lymphocytes % (Manual) 2.0 L Monocytes % (Manual) 9.0 H Seg Neutrophils # Seg Neutrophils # Man 19.7 H Lymphocytes # (Manual) 0.4 L Monocytes # (Manual) 2.0 H Eosinophils # (Manual) Basophils # (Manual) PT INR APTT ABG pH ABG pO2 ABG HCO3 ABG O2 Saturation ABG Base Excess ABG Hemoglobin Oxyhemoglobin Sodium Potassium Chloride Carbon Dioxide BUN Creatinine Glucose POC Glucose 140 H 116 H Lactic Acid Calcium Ionized Calcium Phosphorus Magnesium Total Bilirubin AST ALT Alkaline Phosphatase Ammonia Total Creatine Kinase CK-MB (CK-2) CK-MB (CK-2) Rel Index Total Protein Albumin Urine WBC (Auto) Vancomycin Trough Salicylates Acetaminophen Plasma/Serum Alcohol Crossmatch 12/23/19 12/23/19 12/23/19 04:30 12:00 18:06 WBC RBC Hgb Hct MCH RDW Plt Count Lymph % (Auto) [place] % (Auto) [place] # Baso # Seg Neutrophils % Seg Neuts % (Manual) Lymphocytes % (Manual) Monocytes % (Manual) Seg Neutrophils # Seg Neutrophils # Man Lymphocytes # (Manual) Monocytes # (Manual) Eosinophils # (Manual) Basophils # (Manual) PT INR APTT ABG pH ABG pO2 ABG HCO3 ABG O2 Saturation ABG Base Excess ABG Hemoglobin Oxyhemoglobin Sodium Potassium 5.2 H Chloride Carbon Dioxide 21 L BUN 69 H Creatinine 1.5 H Glucose 117 H POC Glucose 128 H 138 H Lactic Acid Calcium Ionized Calcium Phosphorus Magnesium Total Bilirubin AST ALT Alkaline Phosphatase Ammonia Total Creatine Kinase CK-MB (CK-2) CK-MB (CK-2) Rel Index Total Protein Albumin Urine WBC (Auto) Vancomycin Trough Salicylates Acetaminophen Plasma/Serum Alcohol Crossmatch 12/23/19 12/24/19 12/24/19 23:46 04:31 05:08 WBC RBC Hgb Hct MCH RDW Plt Count Lymph % (Auto) [place] % (Auto) [place] # Baso # Seg Neutrophils % Seg Neuts % (Manual) Lymphocytes % (Manual) Monocytes % (Manual) Seg Neutrophils # Seg Neutrophils # Man Lymphocytes # (Manual) Monocytes # (Manual) Eosinophils # (Manual) Basophils # (Manual) PT INR APTT ABG pH ABG pO2 ABG HCO3 ABG O2 Saturation ABG Base Excess ABG Hemoglobin Oxyhemoglobin Sodium Potassium 5.3 H Chloride 107.6 H Carbon Dioxide 20 L BUN 72 H Creatinine 1.6 H Glucose 120 H POC Glucose 120 H 140 H Lactic Acid Calcium Ionized Calcium Phosphorus Magnesium Total Bilirubin AST ALT Alkaline Phosphatase Ammonia Total Creatine Kinase CK-MB (CK-2) CK-MB (CK-2) Rel Index Total Protein Albumin Urine WBC (Auto) Vancomycin Trough Salicylates Acetaminophen Plasma/Serum Alcohol Crossmatch 12/24/19 12/24/19 12/25/19 11:58 17:49 03:47 WBC 36.2 H RBC 2.92 L Hgb 8.4 L Hct 26.1 L MCH RDW 20.2 H Plt Count 942 H Lymph % (Auto) [place] % (Auto) [place] # Baso # Seg Neutrophils % Seg Neuts % (Manual) 97.5 H Lymphocytes % (Manual) 1.0 L Monocytes % (Manual) Seg Neutrophils # Seg Neutrophils # Man 35.3 H Lymphocytes # (Manual) 0.4 L Monocytes # (Manual) Eosinophils # (Manual) Basophils # (Manual) PT INR APTT ABG pH ABG pO2 ABG HCO3 ABG O2 Saturation ABG Base Excess ABG Hemoglobin Oxyhemoglobin Sodium Potassium Chloride Carbon Dioxide BUN Creatinine Glucose POC Glucose 146 H 131 H Lactic Acid Calcium Ionized Calcium Phosphorus Magnesium Total Bilirubin AST ALT Alkaline Phosphatase Ammonia Total Creatine Kinase CK-MB (CK-2) CK-MB (CK-2) Rel Index Total Protein Albumin Urine WBC (Auto) Vancomycin Trough Salicylates Acetaminophen Plasma/Serum Alcohol Crossmatch 12/25/19 12/25/19 12/25/19 03:47 05:30 12:23 WBC RBC Hgb Hct MCH RDW Plt Count Lymph % (Auto) [place] % (Auto) [place] # Baso # Seg Neutrophils % Seg Neuts % (Manual) Lymphocytes % (Manual) Monocytes % (Manual) Seg Neutrophils # Seg Neutrophils # Man Lymphocytes # (Manual) Monocytes # (Manual) Eosinophils # (Manual) Basophils # (Manual) PT INR APTT ABG pH ABG pO2 ABG HCO3 ABG O2 Saturation ABG Base Excess ABG Hemoglobin Oxyhemoglobin Sodium Potassium Chloride Carbon Dioxide 15 L BUN 70 H Creatinine 1.7 H Glucose 153 H POC Glucose 169 H 135 H Lactic Acid Calcium Ionized Calcium Phosphorus Magnesium Total Bilirubin AST ALT Alkaline Phosphatase Ammonia Total Creatine Kinase CK-MB (CK-2) CK-MB (CK-2) Rel Index Total Protein Albumin Urine WBC (Auto) Vancomycin Trough Salicylates Acetaminophen Plasma/Serum Alcohol Crossmatch 12/25/19 12/25/19 12/26/19 17:37 23:29 09:47 WBC 22.1 H RBC 2.83 L Hgb 7.9 L Hct 25.5 L MCH RDW 20.0 H Plt Count 894 H Lymph % (Auto) [place] % (Auto) [place] # Baso # Seg Neutrophils % Seg Neuts % (Manual) Lymphocytes % (Manual) Monocytes % (Manual) Seg Neutrophils # Seg Neutrophils # Man Lymphocytes # (Manual) Monocytes # (Manual) Eosinophils # (Manual) Basophils # (Manual) PT INR APTT ABG pH ABG pO2 ABG HCO3 ABG O2 Saturation ABG Base Excess ABG Hemoglobin Oxyhemoglobin Sodium Potassium Chloride Carbon Dioxide BUN Creatinine Glucose POC Glucose 120 H 140 H Lactic Acid Calcium Ionized Calcium Phosphorus Magnesium Total Bilirubin AST ALT Alkaline Phosphatase Ammonia Total Creatine Kinase CK-MB (CK-2) CK-MB (CK-2) Rel Index Total Protein Albumin Urine WBC (Auto) Vancomycin Trough Salicylates Acetaminophen Plasma/Serum Alcohol Crossmatch 12/26/19 12/26/19 12/26/19 09:47 11:46 17:52 WBC RBC Hgb Hct MCH RDW Plt Count Lymph % (Auto) [place] % (Auto) [place] # Baso # Seg Neutrophils % Seg Neuts % (Manual) Lymphocytes % (Manual) Monocytes % (Manual) Seg Neutrophils # Seg Neutrophils # Man Lymphocytes # (Manual) Monocytes # (Manual) Eosinophils # (Manual) Basophils # (Manual) PT INR APTT ABG pH ABG pO2 ABG HCO3 ABG O2 Saturation ABG Base Excess ABG Hemoglobin Oxyhemoglobin Sodium Potassium Chloride Carbon Dioxide 18 L BUN 65 H Creatinine 1.4 H Glucose 132 H POC Glucose 110 H 145 H Lactic Acid Calcium Ionized Calcium Phosphorus Magnesium Total Bilirubin AST ALT Alkaline Phosphatase Ammonia Total Creatine Kinase CK-MB (CK-2) CK-MB (CK-2) Rel Index Total Protein Albumin Urine WBC (Auto) Vancomycin Trough Salicylates Acetaminophen Plasma/Serum Alcohol Crossmatch 12/27/19 12/27/19 12/27/19 00:01 03:42 03:42 WBC 18.0 H RBC 2.86 L Hgb 8.0 L Hct 25.2 L MCH RDW 19.2 H Plt Count 873 H Lymph % (Auto) 8.4 L [place] % (Auto) 7.5 H [place] # 1.4 H Baso # 0.2 H Seg Neutrophils % 82.2 H Seg Neuts % (Manual) Lymphocytes % (Manual) Monocytes % (Manual) Seg Neutrophils # 14.8 H Seg Neutrophils # Man Lymphocytes # (Manual) Monocytes # (Manual) Eosinophils # (Manual) Basophils # (Manual) PT INR APTT ABG pH ABG pO2 ABG HCO3 ABG O2 Saturation ABG Base Excess ABG Hemoglobin Oxyhemoglobin Sodium Potassium Chloride Carbon Dioxide BUN 73 H Creatinine 1.4 H Glucose 119 H POC Glucose 124 H Lactic Acid Calcium Ionized Calcium Phosphorus Magnesium Total Bilirubin AST ALT Alkaline Phosphatase Ammonia Total Creatine Kinase CK-MB (CK-2) CK-MB (CK-2) Rel Index Total Protein Albumin Urine WBC (Auto) Vancomycin Trough Salicylates Acetaminophen Plasma/Serum Alcohol Crossmatch 12/27/19 12/27/19 12/27/19 05:45 11:45 17:29 WBC RBC Hgb Hct MCH RDW Plt Count Lymph % (Auto) [place] % (Auto) [place] # Baso # Seg Neutrophils % Seg Neuts % (Manual) Lymphocytes % (Manual) Monocytes % (Manual) Seg Neutrophils # Seg Neutrophils # Man Lymphocytes # (Manual) Monocytes # (Manual) Eosinophils # (Manual) Basophils # (Manual) PT INR APTT ABG pH ABG pO2 ABG HCO3 ABG O2 Saturation ABG Base Excess ABG Hemoglobin Oxyhemoglobin Sodium Potassium Chloride Carbon Dioxide BUN Creatinine Glucose POC Glucose 131 H 123 H 134 H Lactic Acid Calcium Ionized Calcium Phosphorus Magnesium Total Bilirubin AST ALT Alkaline Phosphatase Ammonia Total Creatine Kinase CK-MB (CK-2) CK-MB (CK-2) Rel Index Total Protein Albumin Urine WBC (Auto) Vancomycin Trough Salicylates Acetaminophen Plasma/Serum Alcohol Crossmatch 12/28/19 12/28/19 12/28/19 00:12 05:14 11:53 WBC RBC Hgb Hct MCH RDW Plt Count Lymph % (Auto) [place] % (Auto) [place] # Baso # Seg Neutrophils % Seg Neuts % (Manual) Lymphocytes % (Manual) Monocytes % (Manual) Seg Neutrophils # Seg Neutrophils # Man Lymphocytes # (Manual) Monocytes # (Manual) Eosinophils # (Manual) Basophils # (Manual) PT INR APTT ABG pH ABG pO2 ABG HCO3 ABG O2 Saturation ABG Base Excess ABG Hemoglobin Oxyhemoglobin Sodium Potassium Chloride Carbon Dioxide BUN Creatinine Glucose POC Glucose 138 H 130 H 146 H Lactic Acid Calcium Ionized Calcium Phosphorus Magnesium Total Bilirubin AST ALT Alkaline Phosphatase Ammonia Total Creatine Kinase CK-MB (CK-2) CK-MB (CK-2) Rel Index Total Protein Albumin Urine WBC (Auto) Vancomycin Trough Salicylates Acetaminophen Plasma/Serum Alcohol Crossmatch 12/28/19 12/29/19 12/29/19 17:39 00:01 18:11 WBC RBC Hgb Hct MCH RDW Plt Count Lymph % (Auto) [place] % (Auto) [place] # Baso # Seg Neutrophils % Seg Neuts % (Manual) Lymphocytes % (Manual) Monocytes % (Manual) Seg Neutrophils # Seg Neutrophils # Man Lymphocytes # (Manual) Monocytes # (Manual) Eosinophils # (Manual) Basophils # (Manual) PT INR APTT ABG pH ABG pO2 ABG HCO3 ABG O2 Saturation ABG Base Excess ABG Hemoglobin Oxyhemoglobin Sodium Potassium Chloride Carbon Dioxide BUN Creatinine Glucose POC Glucose 117 H 139 H 130 H Lactic Acid Calcium Ionized Calcium Phosphorus Magnesium Total Bilirubin AST ALT Alkaline Phosphatase Ammonia Total Creatine Kinase CK-MB (CK-2) CK-MB (CK-2) Rel Index Total Protein Albumin Urine WBC (Auto) Vancomycin Trough Salicylates Acetaminophen Plasma/Serum Alcohol Crossmatch 12/29/19 12/30/19 12/30/19 23:09 00:02 01:06 WBC 16.7 H RBC 2.91 L Hgb 8.2 L Hct 25.4 L MCH RDW 18.7 H Plt Count 708 H Lymph % (Auto) 9.4 L [place] % (Auto) [place] # 0.9 H Baso # Seg Neutrophils % 83.5 H Seg Neuts % (Manual) Lymphocytes % (Manual) Monocytes % (Manual) Seg Neutrophils # 14.0 H Seg Neutrophils # Man Lymphocytes # (Manual) Monocytes # (Manual) Eosinophils # (Manual) Basophils # (Manual) PT INR APTT ABG pH ABG pO2 ABG HCO3 ABG O2 Saturation ABG Base Excess ABG Hemoglobin Oxyhemoglobin Sodium Potassium Chloride Carbon Dioxide BUN Creatinine Glucose POC Glucose 120 H 114 H Lactic Acid Calcium Ionized Calcium Phosphorus Magnesium Total Bilirubin AST ALT Alkaline Phosphatase Ammonia Total Creatine Kinase CK-MB (CK-2) CK-MB (CK-2) Rel Index Total Protein Albumin Urine WBC (Auto) Vancomycin Trough Salicylates Acetaminophen Plasma/Serum Alcohol Crossmatch 12/30/19 12/30/19 12/30/19 01:06 04:23 05:18 WBC RBC Hgb Hct MCH RDW Plt Count Lymph % (Auto) [place] % (Auto) [place] # Baso # Seg Neutrophils % Seg Neuts % (Manual) Lymphocytes % (Manual) Monocytes % (Manual) Seg Neutrophils # Seg Neutrophils # Man Lymphocytes # (Manual) Monocytes # (Manual) Eosinophils # (Manual) Basophils # (Manual) PT INR APTT ABG pH ABG pO2 ABG HCO3 ABG O2 Saturation ABG Base Excess ABG Hemoglobin 8.3 L Oxyhemoglobin Sodium Potassium Chloride Carbon Dioxide BUN 70 H Creatinine Glucose 122 H POC Glucose 130 H Lactic Acid Calcium Ionized Calcium Phosphorus Magnesium Total Bilirubin AST ALT Alkaline Phosphatase Ammonia Total Creatine Kinase CK-MB (CK-2) CK-MB (CK-2) Rel Index Total Protein Albumin Urine WBC (Auto) Vancomycin Trough Salicylates Acetaminophen Plasma/Serum Alcohol Crossmatch 12/30/19 12/30/19 12/30/19 05:40 12:17 17:43 WBC RBC Hgb Hct MCH RDW Plt Count Lymph % (Auto) [place] % (Auto) [place] # Baso # Seg Neutrophils % Seg Neuts % (Manual) Lymphocytes % (Manual) Monocytes % (Manual) Seg Neutrophils # Seg Neutrophils # Man Lymphocytes # (Manual) Monocytes # (Manual) Eosinophils # (Manual) Basophils # (Manual) PT INR APTT ABG pH ABG pO2 ABG HCO3 ABG O2 Saturation ABG Base Excess ABG Hemoglobin Oxyhemoglobin Sodium Potassium Chloride Carbon Dioxide BUN Creatinine Glucose POC Glucose 135 H 132 H 118 H Lactic Acid Calcium Ionized Calcium Phosphorus Magnesium Total Bilirubin AST ALT Alkaline Phosphatase Ammonia Total Creatine Kinase CK-MB (CK-2) CK-MB (CK-2) Rel Index Total Protein Albumin Urine WBC (Auto) Vancomycin Trough Salicylates Acetaminophen Plasma/Serum Alcohol Crossmatch 12/30/19 12/31/19 12/31/19 23:29 05:19 17:50 WBC RBC Hgb Hct MCH RDW Plt Count Lymph % (Auto) [place] % (Auto) [place] # Baso # Seg Neutrophils % Seg Neuts % (Manual) Lymphocytes % (Manual) Monocytes % (Manual) Seg Neutrophils # Seg Neutrophils # Man Lymphocytes # (Manual) Monocytes # (Manual) Eosinophils # (Manual) Basophils # (Manual) PT INR APTT ABG pH ABG pO2 ABG HCO3 ABG O2 Saturation ABG Base Excess ABG Hemoglobin Oxyhemoglobin Sodium Potassium Chloride Carbon Dioxide BUN Creatinine Glucose POC Glucose 114 H 109 H 116 H Lactic Acid Calcium Ionized Calcium Phosphorus Magnesium Total Bilirubin AST ALT Alkaline Phosphatase Ammonia Total Creatine Kinase CK-MB (CK-2) CK-MB (CK-2) Rel Index Total Protein Albumin Urine WBC (Auto) Vancomycin Trough Salicylates Acetaminophen Plasma/Serum Alcohol Crossmatch 01/01/20 01/01/20 01/01/20 00:10 05:19 12:02 WBC RBC Hgb Hct MCH RDW Plt Count Lymph % (Auto) [place] % (Auto) [place] # Baso # Seg Neutrophils % Seg Neuts % (Manual) Lymphocytes % (Manual) Monocytes % (Manual) Seg Neutrophils # Seg Neutrophils # Man Lymphocytes # (Manual) Monocytes # (Manual) Eosinophils # (Manual) Basophils # (Manual) PT INR APTT ABG pH ABG pO2 ABG HCO3 ABG O2 Saturation ABG Base Excess ABG Hemoglobin Oxyhemoglobin Sodium Potassium Chloride Carbon Dioxide BUN Creatinine Glucose POC Glucose 131 H 122 H 136 H Lactic Acid Calcium Ionized Calcium Phosphorus Magnesium Total Bilirubin AST ALT Alkaline Phosphatase Ammonia Total Creatine Kinase CK-MB (CK-2) CK-MB (CK-2) Rel Index Total Protein Albumin Urine WBC (Auto) Vancomycin Trough Salicylates Acetaminophen Plasma/Serum Alcohol Crossmatch 01/02/20 01/02/20 01/02/20 00:24 05:36 11:41 WBC RBC Hgb Hct MCH RDW Plt Count Lymph % (Auto) [place] % (Auto) [place] # Baso # Seg Neutrophils % Seg Neuts % (Manual) Lymphocytes % (Manual) Monocytes % (Manual) Seg Neutrophils # Seg Neutrophils # Man Lymphocytes # (Manual) Monocytes # (Manual) Eosinophils # (Manual) Basophils # (Manual) PT INR APTT ABG pH ABG pO2 ABG HCO3 ABG O2 Saturation ABG Base Excess ABG Hemoglobin Oxyhemoglobin Sodium Potassium Chloride Carbon Dioxide BUN Creatinine Glucose POC Glucose 119 H 109 H 125 H Lactic Acid Calcium Ionized Calcium Phosphorus Magnesium Total Bilirubin AST ALT Alkaline Phosphatase Ammonia Total Creatine Kinase CK-MB (CK-2) CK-MB (CK-2) Rel Index Total Protein Albumin Urine WBC (Auto) Vancomycin Trough Salicylates Acetaminophen Plasma/Serum Alcohol Crossmatch 01/02/20 01/03/20 01/03/20 17:49 05:29 12:13 WBC RBC Hgb Hct MCH RDW Plt Count Lymph % (Auto) [place] % (Auto) [place] # Baso # Seg Neutrophils % Seg Neuts % (Manual) Lymphocytes % (Manual) Monocytes % (Manual) Seg Neutrophils # Seg Neutrophils # Man Lymphocytes # (Manual) Monocytes # (Manual) Eosinophils # (Manual) Basophils # (Manual) PT INR APTT ABG pH ABG pO2 ABG HCO3 ABG O2 Saturation ABG Base Excess ABG Hemoglobin Oxyhemoglobin Sodium Potassium Chloride Carbon Dioxide BUN Creatinine Glucose POC Glucose 130 H 132 H 113 H Lactic Acid Calcium Ionized Calcium Phosphorus Magnesium Total Bilirubin AST ALT Alkaline Phosphatase Ammonia Total Creatine Kinase CK-MB (CK-2) CK-MB (CK-2) Rel Index Total Protein Albumin Urine WBC (Auto) Vancomycin Trough Salicylates Acetaminophen Plasma/Serum Alcohol Crossmatch 01/03/20 01/04/20 01/04/20 17:32 00:19 05:26 WBC RBC Hgb Hct MCH RDW Plt Count Lymph % (Auto) [place] % (Auto) [place] # Baso # Seg Neutrophils % Seg Neuts % (Manual) Lymphocytes % (Manual) Monocytes % (Manual) Seg Neutrophils # Seg Neutrophils # Man Lymphocytes # (Manual) Monocytes # (Manual) Eosinophils # (Manual) Basophils # (Manual) PT INR APTT ABG pH ABG pO2 ABG HCO3 ABG O2 Saturation ABG Base Excess ABG Hemoglobin Oxyhemoglobin Sodium Potassium Chloride Carbon Dioxide BUN Creatinine Glucose POC Glucose 127 H 141 H 129 H Lactic Acid Calcium Ionized Calcium Phosphorus Magnesium Total Bilirubin AST ALT Alkaline Phosphatase Ammonia Total Creatine Kinase CK-MB (CK-2) CK-MB (CK-2) Rel Index Total Protein Albumin Urine WBC (Auto) Vancomycin Trough Salicylates Acetaminophen Plasma/Serum Alcohol Crossmatch 01/04/20 01/04/20 01/05/20 11:39 17:29 05:22 WBC RBC Hgb Hct MCH RDW Plt Count Lymph % (Auto) [place] % (Auto) [place] # Baso # Seg Neutrophils % Seg Neuts % (Manual) Lymphocytes % (Manual) Monocytes % (Manual) Seg Neutrophils # Seg Neutrophils # Man Lymphocytes # (Manual) Monocytes # (Manual) Eosinophils # (Manual) Basophils # (Manual) PT INR APTT ABG pH ABG pO2 ABG HCO3 ABG O2 Saturation ABG Base Excess ABG Hemoglobin Oxyhemoglobin Sodium Potassium Chloride Carbon Dioxide BUN Creatinine Glucose POC Glucose 167 H 132 H 121 H Lactic Acid Calcium Ionized Calcium Phosphorus Magnesium Total Bilirubin AST ALT Alkaline Phosphatase Ammonia Total Creatine Kinase CK-MB (CK-2) CK-MB (CK-2) Rel Index Total Protein Albumin Urine WBC (Auto) Vancomycin Trough Salicylates Acetaminophen Plasma/Serum Alcohol Crossmatch 01/05/20 01/05/20 01/05/20 12:25 17:40 18:06 WBC RBC Hgb Hct MCH RDW Plt Count Lymph % (Auto) [place] % (Auto) [place] # Baso # Seg Neutrophils % Seg Neuts % (Manual) Lymphocytes % (Manual) Monocytes % (Manual) Seg Neutrophils # Seg Neutrophils # Man Lymphocytes # (Manual) Monocytes # (Manual) Eosinophils # (Manual) Basophils # (Manual) PT INR APTT ABG pH 7.472 H ABG pO2 99.2 H ABG HCO3 ABG O2 Saturation ABG Base Excess ABG Hemoglobin 7.8 L Oxyhemoglobin Sodium Potassium Chloride Carbon Dioxide BUN Creatinine Glucose POC Glucose 106 H 110 H Lactic Acid Calcium Ionized Calcium Phosphorus Magnesium Total Bilirubin AST ALT Alkaline Phosphatase Ammonia Total Creatine Kinase CK-MB (CK-2) CK-MB (CK-2) Rel Index Total Protein Albumin Urine WBC (Auto) Vancomycin Trough Salicylates Acetaminophen Plasma/Serum Alcohol Crossmatch 01/06/20 01/06/20 01/06/20 00:11 05:16 11:30 WBC RBC Hgb Hct MCH RDW Plt Count Lymph % (Auto) [place] % (Auto) [place] # Baso # Seg Neutrophils % Seg Neuts % (Manual) Lymphocytes % (Manual) Monocytes % (Manual) Seg Neutrophils # Seg Neutrophils # Man Lymphocytes # (Manual) Monocytes # (Manual) Eosinophils # (Manual) Basophils # (Manual) PT INR APTT ABG pH ABG pO2 ABG HCO3 ABG O2 Saturation ABG Base Excess ABG Hemoglobin Oxyhemoglobin Sodium Potassium Chloride Carbon Dioxide BUN Creatinine Glucose POC Glucose 108 H 124 H 125 H Lactic Acid Calcium Ionized Calcium Phosphorus Magnesium Total Bilirubin AST ALT Alkaline Phosphatase Ammonia Total Creatine Kinase CK-MB (CK-2) CK-MB (CK-2) Rel Index Total Protein Albumin Urine WBC (Auto) Vancomycin Trough Salicylates Acetaminophen Plasma/Serum Alcohol Crossmatch 01/06/20 01/06/20 01/07/20 17:53 23:51 04:12 WBC 16.5 H RBC 3.29 L Hgb 9.3 L Hct 28.1 L MCH RDW 18.2 H Plt Count 526 H Lymph % (Auto) 8.4 L [place] % (Auto) [place] # 1.0 H Baso # Seg Neutrophils % 84.4 H Seg Neuts % (Manual) Lymphocytes % (Manual) Monocytes % (Manual) Seg Neutrophils # 13.9 H Seg Neutrophils # Man Lymphocytes # (Manual) Monocytes # (Manual) Eosinophils # (Manual) Basophils # (Manual) PT INR APTT ABG pH ABG pO2 ABG HCO3 ABG O2 Saturation ABG Base Excess ABG Hemoglobin Oxyhemoglobin Sodium Potassium Chloride Carbon Dioxide BUN Creatinine Glucose POC Glucose 166 H 128 H Lactic Acid Calcium Ionized Calcium Phosphorus Magnesium Total Bilirubin AST ALT Alkaline Phosphatase Ammonia Total Creatine Kinase CK-MB (CK-2) CK-MB (CK-2) Rel Index Total Protein Albumin Urine WBC (Auto) Vancomycin Trough Salicylates Acetaminophen Plasma/Serum Alcohol Crossmatch 01/07/20 01/07/20 01/07/20 04:12 04:45 11:51 WBC RBC Hgb Hct MCH RDW Plt Count Lymph % (Auto) [place] % (Auto) [place] # Baso # Seg Neutrophils % Seg Neuts % (Manual) Lymphocytes % (Manual) Monocytes % (Manual) Seg Neutrophils # Seg Neutrophils # Man Lymphocytes # (Manual) Monocytes # (Manual) Eosinophils # (Manual) Basophils # (Manual) PT INR APTT ABG pH ABG pO2 ABG HCO3 ABG O2 Saturation ABG Base Excess ABG Hemoglobin Oxyhemoglobin Sodium 136 L Potassium Chloride Carbon Dioxide 21 L BUN 44 H Creatinine 0.6 L Glucose 124 H POC Glucose 134 H 138 H Lactic Acid Calcium Ionized Calcium Phosphorus Magnesium Total Bilirubin AST ALT Alkaline Phosphatase Ammonia Total Creatine Kinase CK-MB (CK-2) CK-MB (CK-2) Rel Index Total Protein Albumin Urine WBC (Auto) Vancomycin Trough Salicylates Acetaminophen Plasma/Serum Alcohol Crossmatch 01/07/20 01/08/20 01/08/20 17:36 00:33 05:29 WBC RBC Hgb Hct MCH RDW Plt Count Lymph % (Auto) [place] % (Auto) [place] # Baso # Seg Neutrophils % Seg Neuts % (Manual) Lymphocytes % (Manual) Monocytes % (Manual) Seg Neutrophils # Seg Neutrophils # Man Lymphocytes # (Manual) Monocytes # (Manual) Eosinophils # (Manual) Basophils # (Manual) PT INR APTT ABG pH ABG pO2 ABG HCO3 ABG O2 Saturation ABG Base Excess ABG Hemoglobin Oxyhemoglobin Sodium Potassium Chloride Carbon Dioxide BUN Creatinine Glucose POC Glucose 128 H 119 H 124 H Lactic Acid Calcium Ionized Calcium Phosphorus Magnesium Total Bilirubin AST ALT Alkaline Phosphatase Ammonia Total Creatine Kinase CK-MB (CK-2) CK-MB (CK-2) Rel Index Total Protein Albumin Urine WBC (Auto) Vancomycin Trough Salicylates Acetaminophen Plasma/Serum Alcohol Crossmatch 01/08/20 01/08/20 01/08/20 12:51 20:25 23:22 WBC RBC Hgb Hct MCH RDW Plt Count Lymph % (Auto) [place] % (Auto) [place] # Baso # Seg Neutrophils % Seg Neuts % (Manual) Lymphocytes % (Manual) Monocytes % (Manual) Seg Neutrophils # Seg Neutrophils # Man Lymphocytes # (Manual) Monocytes # (Manual) Eosinophils # (Manual) Basophils # (Manual) PT INR APTT ABG pH ABG pO2 132.2 H ABG HCO3 ABG O2 Saturation ABG Base Excess ABG Hemoglobin Oxyhemoglobin Sodium Potassium Chloride Carbon Dioxide BUN Creatinine Glucose POC Glucose 128 H 127 H Lactic Acid Calcium Ionized Calcium Phosphorus Magnesium Total Bilirubin AST ALT Alkaline Phosphatase Ammonia Total Creatine Kinase CK-MB (CK-2) CK-MB (CK-2) Rel Index Total Protein Albumin Urine WBC (Auto) Vancomycin Trough Salicylates Acetaminophen Plasma/Serum Alcohol Crossmatch 01/09/20 01/09/20 01/09/20 05:48 08:51 11:29 WBC RBC Hgb Hct MCH RDW Plt Count Lymph % (Auto) [place] % (Auto) [place] # Baso # Seg Neutrophils % Seg Neuts % (Manual) Lymphocytes % (Manual) Monocytes % (Manual) Seg Neutrophils # Seg Neutrophils # Man Lymphocytes # (Manual) Monocytes # (Manual) Eosinophils # (Manual) Basophils # (Manual) PT INR APTT ABG pH ABG pO2 94.3 H ABG HCO3 ABG O2 Saturation ABG Base Excess ABG Hemoglobin 9.5 L Oxyhemoglobin Sodium Potassium Chloride Carbon Dioxide BUN Creatinine Glucose POC Glucose 120 H 112 H Lactic Acid Calcium Ionized Calcium Phosphorus Magnesium Total Bilirubin AST ALT Alkaline Phosphatase Ammonia Total Creatine Kinase CK-MB (CK-2) CK-MB (CK-2) Rel Index Total Protein Albumin Urine WBC (Auto) Vancomycin Trough Salicylates Acetaminophen Plasma/Serum Alcohol Crossmatch 01/09/20 01/10/20 01/10/20 17:57 05:17 12:28 WBC RBC Hgb Hct MCH RDW Plt Count Lymph % (Auto) [place] % (Auto) [place] # Baso # Seg Neutrophils % Seg Neuts % (Manual) Lymphocytes % (Manual) Monocytes % (Manual) Seg Neutrophils # Seg Neutrophils # Man Lymphocytes # (Manual) Monocytes # (Manual) Eosinophils # (Manual) Basophils # (Manual) PT INR APTT ABG pH ABG pO2 ABG HCO3 ABG O2 Saturation ABG Base Excess ABG Hemoglobin Oxyhemoglobin Sodium Potassium Chloride Carbon Dioxide BUN Creatinine Glucose POC Glucose 122 H 115 H 116 H Lactic Acid Calcium Ionized Calcium Phosphorus Magnesium Total Bilirubin AST ALT Alkaline Phosphatase Ammonia Total Creatine Kinase CK-MB (CK-2) CK-MB (CK-2) Rel Index Total Protein Albumin Urine WBC (Auto) Vancomycin Trough Salicylates Acetaminophen Plasma/Serum Alcohol Crossmatch 01/10/20 01/10/20 01/11/20 18:25 23:47 06:05 WBC RBC Hgb Hct MCH RDW Plt Count Lymph % (Auto) [place] % (Auto) [place] # Baso # Seg Neutrophils % Seg Neuts % (Manual) Lymphocytes % (Manual) Monocytes % (Manual) Seg Neutrophils # Seg Neutrophils # Man Lymphocytes # (Manual) Monocytes # (Manual) Eosinophils # (Manual) Basophils # (Manual) PT INR APTT ABG pH ABG pO2 ABG HCO3 ABG O2 Saturation ABG Base Excess ABG Hemoglobin Oxyhemoglobin Sodium Potassium Chloride Carbon Dioxide BUN Creatinine Glucose POC Glucose 123 H 115 H 151 H Lactic Acid Calcium Ionized Calcium Phosphorus Magnesium Total Bilirubin AST ALT Alkaline Phosphatase Ammonia Total Creatine Kinase CK-MB (CK-2) CK-MB (CK-2) Rel Index Total Protein Albumin Urine WBC (Auto) Vancomycin Trough Salicylates Acetaminophen Plasma/Serum Alcohol Crossmatch 01/11/20 01/11/20 01/11/20 07:00 07:00 12:27 WBC 11.8 H RBC 3.40 L Hgb 9.4 L Hct 29.3 L MCH RDW 18.1 H Plt Count 549 H Lymph % (Auto) [place] % (Auto) 9.1 H [place] # 1.1 H Baso # Seg Neutrophils % 73.3 H Seg Neuts % (Manual) Lymphocytes % (Manual) Monocytes % (Manual) Seg Neutrophils # 8.7 H Seg Neutrophils # Man Lymphocytes # (Manual) Monocytes # (Manual) Eosinophils # (Manual) Basophils # (Manual) PT INR APTT ABG pH ABG pO2 ABG HCO3 ABG O2 Saturation ABG Base Excess ABG Hemoglobin Oxyhemoglobin Sodium 134 L Potassium Chloride 97.7 L Carbon Dioxide 21 L BUN 38 H Creatinine 0.5 L Glucose 168 H POC Glucose 117 H Lactic Acid Calcium 10.5 H Ionized Calcium Phosphorus Magnesium Total Bilirubin AST ALT Alkaline Phosphatase Ammonia Total Creatine Kinase CK-MB (CK-2) CK-MB (CK-2) Rel Index Total Protein Albumin Urine WBC (Auto) Vancomycin Trough Salicylates Acetaminophen Plasma/Serum Alcohol Crossmatch 01/11/20 01/12/20 01/12/20 18:19 00:53 05:24 WBC RBC Hgb Hct MCH RDW Plt Count Lymph % (Auto) [place] % (Auto) [place] # Baso # Seg Neutrophils % Seg Neuts % (Manual) Lymphocytes % (Manual) Monocytes % (Manual) Seg Neutrophils # Seg Neutrophils # Man Lymphocytes # (Manual) Monocytes # (Manual) Eosinophils # (Manual) Basophils # (Manual) PT INR APTT ABG pH ABG pO2 ABG HCO3 ABG O2 Saturation ABG Base Excess ABG Hemoglobin Oxyhemoglobin Sodium Potassium Chloride Carbon Dioxide BUN Creatinine Glucose POC Glucose 126 H 126 H 128 H Lactic Acid Calcium Ionized Calcium Phosphorus Magnesium Total Bilirubin AST ALT Alkaline Phosphatase Ammonia Total Creatine Kinase CK-MB (CK-2) CK-MB (CK-2) Rel Index Total Protein Albumin Urine WBC (Auto) Vancomycin Trough Salicylates Acetaminophen Plasma/Serum Alcohol Crossmatch 01/12/20 01/12/20 01/13/20 13:39 18:02 00:27 WBC RBC Hgb Hct MCH RDW Plt Count Lymph % (Auto) [place] % (Auto) [place] # Baso # Seg Neutrophils % Seg Neuts % (Manual) Lymphocytes % (Manual) Monocytes % (Manual) Seg Neutrophils # Seg Neutrophils # Man Lymphocytes # (Manual) Monocytes # (Manual) Eosinophils # (Manual) Basophils # (Manual) PT INR APTT ABG pH ABG pO2 ABG HCO3 ABG O2 Saturation ABG Base Excess ABG Hemoglobin Oxyhemoglobin Sodium Potassium Chloride Carbon Dioxide BUN Creatinine Glucose POC Glucose 146 H 125 H 131 H Lactic Acid Calcium Ionized Calcium Phosphorus Magnesium Total Bilirubin AST ALT Alkaline Phosphatase Ammonia Total Creatine Kinase CK-MB (CK-2) CK-MB (CK-2) Rel Index Total Protein Albumin Urine WBC (Auto) Vancomycin Trough Salicylates Acetaminophen Plasma/Serum Alcohol Crossmatch 01/13/20 01/13/20 01/13/20 05:44 11:54 17:18 WBC RBC Hgb Hct MCH RDW Plt Count Lymph % (Auto) [place] % (Auto) [place] # Baso # Seg Neutrophils % Seg Neuts % (Manual) Lymphocytes % (Manual) Monocytes % (Manual) Seg Neutrophils # Seg Neutrophils # Man Lymphocytes # (Manual) Monocytes # (Manual) Eosinophils # (Manual) Basophils # (Manual) PT INR APTT ABG pH ABG pO2 ABG HCO3 ABG O2 Saturation ABG Base Excess ABG Hemoglobin Oxyhemoglobin Sodium Potassium Chloride Carbon Dioxide BUN Creatinine Glucose POC Glucose 148 H 140 H 130 H Lactic Acid Calcium Ionized Calcium Phosphorus Magnesium Total Bilirubin AST ALT Alkaline Phosphatase Ammonia Total Creatine Kinase CK-MB (CK-2) CK-MB (CK-2) Rel Index Total Protein Albumin Urine WBC (Auto) Vancomycin Trough Salicylates Acetaminophen Plasma/Serum Alcohol Crossmatch 01/14/20 01/14/20 01/14/20 00:16 05:45 12:19 WBC RBC Hgb Hct MCH RDW Plt Count Lymph % (Auto) [place] % (Auto) [place] # Baso # Seg Neutrophils % Seg Neuts % (Manual) Lymphocytes % (Manual) Monocytes % (Manual) Seg Neutrophils # Seg Neutrophils # Man Lymphocytes # (Manual) Monocytes # (Manual) Eosinophils # (Manual) Basophils # (Manual) PT INR APTT ABG pH ABG pO2 ABG HCO3 ABG O2 Saturation ABG Base Excess ABG Hemoglobin Oxyhemoglobin Sodium Potassium Chloride Carbon Dioxide BUN Creatinine Glucose POC Glucose 125 H 146 H 147 H Lactic Acid Calcium Ionized Calcium Phosphorus Magnesium Total Bilirubin AST ALT Alkaline Phosphatase Ammonia Total Creatine Kinase CK-MB (CK-2) CK-MB (CK-2) Rel Index Total Protein Albumin Urine WBC (Auto) Vancomycin Trough Salicylates Acetaminophen Plasma/Serum Alcohol Crossmatch 01/14/20 01/14/20 01/15/20 18:10 23:54 05:14 WBC RBC Hgb Hct MCH RDW Plt Count Lymph % (Auto) [place] % (Auto) [place] # Baso # Seg Neutrophils % Seg Neuts % (Manual) Lymphocytes % (Manual) Monocytes % (Manual) Seg Neutrophils # Seg Neutrophils # Man Lymphocytes # (Manual) Monocytes # (Manual) Eosinophils # (Manual) Basophils # (Manual) PT INR APTT ABG pH ABG pO2 ABG HCO3 ABG O2 Saturation ABG Base Excess ABG Hemoglobin Oxyhemoglobin Sodium Potassium Chloride Carbon Dioxide BUN Creatinine Glucose POC Glucose 136 H 109 H 111 H Lactic Acid Calcium Ionized Calcium Phosphorus Magnesium Total Bilirubin AST ALT Alkaline Phosphatase Ammonia Total Creatine Kinase CK-MB (CK-2) CK-MB (CK-2) Rel Index Total Protein Albumin Urine WBC (Auto) Vancomycin Trough Salicylates Acetaminophen Plasma/Serum Alcohol Crossmatch 01/15/20 01/15/20 01/16/20 12:34 23:25 05:06 WBC RBC Hgb Hct MCH RDW Plt Count Lymph % (Auto) [place] % (Auto) [place] # Baso # Seg Neutrophils % Seg Neuts % (Manual) Lymphocytes % (Manual) Monocytes % (Manual) Seg Neutrophils # Seg Neutrophils # Man Lymphocytes # (Manual) Monocytes # (Manual) Eosinophils # (Manual) Basophils # (Manual) PT INR APTT ABG pH ABG pO2 ABG HCO3 ABG O2 Saturation ABG Base Excess ABG Hemoglobin Oxyhemoglobin Sodium Potassium Chloride Carbon Dioxide BUN Creatinine Glucose POC Glucose 131 H 120 H 121 H Lactic Acid Calcium Ionized Calcium Phosphorus Magnesium Total Bilirubin AST ALT Alkaline Phosphatase Ammonia Total Creatine Kinase CK-MB (CK-2) CK-MB (CK-2) Rel Index Total Protein Albumin Urine WBC (Auto) Vancomycin Trough Salicylates Acetaminophen Plasma/Serum Alcohol Crossmatch 01/16/20 01/16/20 01/17/20 12:15 23:46 05:32 WBC 13.6 H RBC 3.27 L Hgb 9.3 L Hct 28.5 L MCH RDW 17.0 H Plt Count 490 H Lymph % (Auto) 13.1 L [place] % (Auto) [place] # 1.0 H Baso # Seg Neutrophils % 77.5 H Seg Neuts % (Manual) Lymphocytes % (Manual) Monocytes % (Manual) Seg Neutrophils # 10.5 H Seg Neutrophils # Man Lymphocytes # (Manual) Monocytes # (Manual) Eosinophils # (Manual) Basophils # (Manual) PT INR APTT ABG pH ABG pO2 ABG HCO3 ABG O2 Saturation ABG Base Excess ABG Hemoglobin Oxyhemoglobin Sodium Potassium Chloride Carbon Dioxide BUN Creatinine Glucose POC Glucose 152 H 107 H Lactic Acid Calcium Ionized Calcium Phosphorus Magnesium Total Bilirubin AST ALT Alkaline Phosphatase Ammonia Total Creatine Kinase CK-MB (CK-2) CK-MB (CK-2) Rel Index Total Protein Albumin Urine WBC (Auto) Vancomycin Trough Salicylates Acetaminophen Plasma/Serum Alcohol Crossmatch 01/17/20 01/17/20 01/17/20 06:47 12:16 17:21 WBC RBC Hgb Hct MCH RDW Plt Count Lymph % (Auto) [place] % (Auto) [place] # Baso # Seg Neutrophils % Seg Neuts % (Manual) Lymphocytes % (Manual) Monocytes % (Manual) Seg Neutrophils # Seg Neutrophils # Man Lymphocytes # (Manual) Monocytes # (Manual) Eosinophils # (Manual) Basophils # (Manual) PT INR APTT ABG pH ABG pO2 ABG HCO3 ABG O2 Saturation ABG Base Excess ABG Hemoglobin Oxyhemoglobin Sodium Potassium Chloride Carbon Dioxide BUN Creatinine Glucose POC Glucose 112 H 145 H 150 H Lactic Acid Calcium Ionized Calcium Phosphorus Magnesium Total Bilirubin AST ALT Alkaline Phosphatase Ammonia Total Creatine Kinase CK-MB (CK-2) CK-MB (CK-2) Rel Index Total Protein Albumin Urine WBC (Auto) Vancomycin Trough Salicylates Acetaminophen Plasma/Serum Alcohol Crossmatch 01/17/20 01/18/20 01/18/20 23:34 05:47 12:43 WBC RBC Hgb Hct MCH RDW Plt Count Lymph % (Auto) [place] % (Auto) [place] # Baso # Seg Neutrophils % Seg Neuts % (Manual) Lymphocytes % (Manual) Monocytes % (Manual) Seg Neutrophils # Seg Neutrophils # Man Lymphocytes # (Manual) Monocytes # (Manual) Eosinophils # (Manual) Basophils # (Manual) PT INR APTT ABG pH ABG pO2 ABG HCO3 ABG O2 Saturation ABG Base Excess ABG Hemoglobin Oxyhemoglobin Sodium Potassium Chloride Carbon Dioxide BUN Creatinine Glucose POC Glucose 160 H 130 H 124 H Lactic Acid Calcium Ionized Calcium Phosphorus Magnesium Total Bilirubin AST ALT Alkaline Phosphatase Ammonia Total Creatine Kinase CK-MB (CK-2) CK-MB (CK-2) Rel Index Total Protein Albumin Urine WBC (Auto) Vancomycin Trough Salicylates Acetaminophen Plasma/Serum Alcohol Crossmatch 01/18/20 01/19/20 01/19/20 18:26 00:14 06:24 WBC RBC Hgb Hct MCH RDW Plt Count Lymph % (Auto) [place] % (Auto) [place] # Baso # Seg Neutrophils % Seg Neuts % (Manual) Lymphocytes % (Manual) Monocytes % (Manual) Seg Neutrophils # Seg Neutrophils # Man Lymphocytes # (Manual) Monocytes # (Manual) Eosinophils # (Manual) Basophils # (Manual) PT INR APTT ABG pH ABG pO2 ABG HCO3 ABG O2 Saturation ABG Base Excess ABG Hemoglobin Oxyhemoglobin Sodium Potassium Chloride Carbon Dioxide BUN Creatinine Glucose POC Glucose 119 H 114 H 144 H Lactic Acid Calcium Ionized Calcium Phosphorus Magnesium Total Bilirubin AST ALT Alkaline Phosphatase Ammonia Total Creatine Kinase CK-MB (CK-2) CK-MB (CK-2) Rel Index Total Protein Albumin Urine WBC (Auto) Vancomycin Trough Salicylates Acetaminophen Plasma/Serum Alcohol Crossmatch 01/19/20 01/19/20 01/20/20 12:24 17:50 12:06 WBC RBC Hgb Hct MCH RDW Plt Count Lymph % (Auto) [place] % (Auto) [place] # Baso # Seg Neutrophils % Seg Neuts % (Manual) Lymphocytes % (Manual) Monocytes % (Manual) Seg Neutrophils # Seg Neutrophils # Man Lymphocytes # (Manual) Monocytes # (Manual) Eosinophils # (Manual) Basophils # (Manual) PT INR APTT ABG pH ABG pO2 ABG HCO3 ABG O2 Saturation ABG Base Excess ABG Hemoglobin Oxyhemoglobin Sodium Potassium Chloride Carbon Dioxide BUN Creatinine Glucose POC Glucose 132 H 144 H 135 H Lactic Acid Calcium Ionized Calcium Phosphorus Magnesium Total Bilirubin AST ALT Alkaline Phosphatase Ammonia Total Creatine Kinase CK-MB (CK-2) CK-MB (CK-2) Rel Index Total Protein Albumin Urine WBC (Auto) Vancomycin Trough Salicylates Acetaminophen Plasma/Serum Alcohol Crossmatch 01/21/20 01/21/20 01/21/20 05:46 13:02 23:49 WBC RBC Hgb Hct MCH RDW Plt Count Lymph % (Auto) [place] % (Auto) [place] # Baso # Seg Neutrophils % Seg Neuts % (Manual) Lymphocytes % (Manual) Monocytes % (Manual) Seg Neutrophils # Seg Neutrophils # Man Lymphocytes # (Manual) Monocytes # (Manual) Eosinophils # (Manual) Basophils # (Manual) PT INR APTT ABG pH ABG pO2 ABG HCO3 ABG O2 Saturation ABG Base Excess ABG Hemoglobin Oxyhemoglobin Sodium Potassium Chloride Carbon Dioxide BUN Creatinine Glucose POC Glucose 114 H 136 H 120 H Lactic Acid Calcium Ionized Calcium Phosphorus Magnesium Total Bilirubin AST ALT Alkaline Phosphatase Ammonia Total Creatine Kinase CK-MB (CK-2) CK-MB (CK-2) Rel Index Total Protein Albumin Urine WBC (Auto) Vancomycin Trough Salicylates Acetaminophen Plasma/Serum Alcohol Crossmatch 01/22/20 01/22/20 01/22/20 05:41 11:44 16:31 WBC RBC Hgb Hct MCH RDW Plt Count Lymph % (Auto) [place] % (Auto) [place] # Baso # Seg Neutrophils % Seg Neuts % (Manual) Lymphocytes % (Manual) Monocytes % (Manual) Seg Neutrophils # Seg Neutrophils # Man Lymphocytes # (Manual) Monocytes # (Manual) Eosinophils # (Manual) Basophils # (Manual) PT INR APTT ABG pH ABG pO2 ABG HCO3 ABG O2 Saturation ABG Base Excess ABG Hemoglobin Oxyhemoglobin Sodium Potassium Chloride Carbon Dioxide BUN Creatinine Glucose POC Glucose 124 H 173 H 111 H Lactic Acid Calcium Ionized Calcium Phosphorus Magnesium Total Bilirubin AST ALT Alkaline Phosphatase Ammonia Total Creatine Kinase CK-MB (CK-2) CK-MB (CK-2) Rel Index Total Protein Albumin Urine WBC (Auto) Vancomycin Trough Salicylates Acetaminophen Plasma/Serum Alcohol Crossmatch 01/22/20 01/23/20 01/23/20 23:25 05:15 12:15 WBC RBC Hgb Hct MCH RDW Plt Count Lymph % (Auto) [place] % (Auto) [place] # Baso # Seg Neutrophils % Seg Neuts % (Manual) Lymphocytes % (Manual) Monocytes % (Manual) Seg Neutrophils # Seg Neutrophils # Man Lymphocytes # (Manual) Monocytes # (Manual) Eosinophils # (Manual) Basophils # (Manual) PT INR APTT ABG pH ABG pO2 ABG HCO3 ABG O2 Saturation ABG Base Excess ABG Hemoglobin Oxyhemoglobin Sodium Potassium Chloride Carbon Dioxide BUN Creatinine Glucose POC Glucose 134 H 117 H 129 H Lactic Acid Calcium Ionized Calcium Phosphorus Magnesium Total Bilirubin AST ALT Alkaline Phosphatase Ammonia Total Creatine Kinase CK-MB (CK-2) CK-MB (CK-2) Rel Index Total Protein Albumin Urine WBC (Auto) Vancomycin Trough Salicylates Acetaminophen Plasma/Serum Alcohol Crossmatch 01/23/20 01/23/20 01/23/20 16:58 21:17 23:47 WBC RBC Hgb Hct MCH RDW Plt Count Lymph % (Auto) [place] % (Auto) [place] # Baso # Seg Neutrophils % Seg Neuts % (Manual) Lymphocytes % (Manual) Monocytes % (Manual) Seg Neutrophils # Seg Neutrophils # Man Lymphocytes # (Manual) Monocytes # (Manual) Eosinophils # (Manual) Basophils # (Manual) PT INR APTT ABG pH ABG pO2 ABG HCO3 ABG O2 Saturation ABG Base Excess ABG Hemoglobin Oxyhemoglobin Sodium Potassium Chloride Carbon Dioxide BUN Creatinine Glucose POC Glucose 156 H 185 H 156 H Lactic Acid Calcium Ionized Calcium Phosphorus Magnesium Total Bilirubin AST ALT Alkaline Phosphatase Ammonia Total Creatine Kinase CK-MB (CK-2) CK-MB (CK-2) Rel Index Total Protein Albumin Urine WBC (Auto) Vancomycin Trough Salicylates Acetaminophen Plasma/Serum Alcohol Crossmatch 01/24/20 01/24/20 01/24/20 04:47 04:47 05:59 WBC 17.8 H RBC 3.60 L Hgb Hct MCH RDW 16.2 H Plt Count 688 H Lymph % (Auto) 11.8 L [place] % (Auto) 7.5 H [place] # 1.3 H Baso # Seg Neutrophils % 79.9 H Seg Neuts % (Manual) Lymphocytes % (Manual) Monocytes % (Manual) Seg Neutrophils # 14.2 H Seg Neutrophils # Man Lymphocytes # (Manual) Monocytes # (Manual) Eosinophils # (Manual) Basophils # (Manual) PT INR APTT ABG pH ABG pO2 ABG HCO3 ABG O2 Saturation ABG Base Excess ABG Hemoglobin Oxyhemoglobin Sodium 131 L Potassium Chloride 91.2 L Carbon Dioxide BUN 22 H Creatinine 0.3 L Glucose 123 H POC Glucose 147 H Lactic Acid Calcium 10.9 H Ionized Calcium Phosphorus Magnesium Total Bilirubin AST ALT Alkaline Phosphatase Ammonia Total Creatine Kinase CK-MB (CK-2) CK-MB (CK-2) Rel Index Total Protein Albumin Urine WBC (Auto) Vancomycin Trough Salicylates Acetaminophen Plasma/Serum Alcohol Crossmatch 01/24/20 01/24/20 01/25/20 11:47 16:45 00:18 WBC RBC Hgb Hct MCH RDW Plt Count Lymph % (Auto) [place] % (Auto) [place] # Baso # Seg Neutrophils % Seg Neuts % (Manual) Lymphocytes % (Manual) Monocytes % (Manual) Seg Neutrophils # Seg Neutrophils # Man Lymphocytes # (Manual) Monocytes # (Manual) Eosinophils # (Manual) Basophils # (Manual) PT INR APTT ABG pH ABG pO2 ABG HCO3 ABG O2 Saturation ABG Base Excess ABG Hemoglobin Oxyhemoglobin Sodium Potassium Chloride Carbon Dioxide BUN Creatinine Glucose POC Glucose 114 H 108 H 119 H Lactic Acid Calcium Ionized Calcium Phosphorus Magnesium Total Bilirubin AST ALT Alkaline Phosphatase Ammonia Total Creatine Kinase CK-MB (CK-2) CK-MB (CK-2) Rel Index Total Protein Albumin Urine WBC (Auto) Vancomycin Trough Salicylates Acetaminophen Plasma/Serum Alcohol Crossmatch 01/25/20 01/25/20 01/25/20 07:18 11:58 16:56 WBC RBC Hgb Hct MCH RDW Plt Count Lymph % (Auto) [place] % (Auto) [place] # Baso # Seg Neutrophils % Seg Neuts % (Manual) Lymphocytes % (Manual) Monocytes % (Manual) Seg Neutrophils # Seg Neutrophils # Man Lymphocytes # (Manual) Monocytes # (Manual) Eosinophils # (Manual) Basophils # (Manual) PT INR APTT ABG pH ABG pO2 ABG HCO3 ABG O2 Saturation ABG Base Excess ABG Hemoglobin Oxyhemoglobin Sodium Potassium Chloride Carbon Dioxide BUN Creatinine Glucose POC Glucose 136 H 136 H 147 H Lactic Acid Calcium Ionized Calcium Phosphorus Magnesium Total Bilirubin AST ALT Alkaline Phosphatase Ammonia Total Creatine Kinase CK-MB (CK-2) CK-MB (CK-2) Rel Index Total Protein Albumin Urine WBC (Auto) Vancomycin Trough Salicylates Acetaminophen Plasma/Serum Alcohol Crossmatch 01/26/20 01/26/20 01/26/20 00:29 05:59 05:59 WBC 12.8 H RBC Hgb Hct MCH RDW 16.4 H Plt Count 743 H Lymph % (Auto) [place] % (Auto) [place] # 0.9 H Baso # Seg Neutrophils % 76.2 H Seg Neuts % (Manual) Lymphocytes % (Manual) Monocytes % (Manual) Seg Neutrophils # 9.8 H Seg Neutrophils # Man Lymphocytes # (Manual) Monocytes # (Manual) Eosinophils # (Manual) Basophils # (Manual) PT INR APTT ABG pH ABG pO2 ABG HCO3 ABG O2 Saturation ABG Base Excess ABG Hemoglobin Oxyhemoglobin Sodium 132 L Potassium Chloride 90.9 L Carbon Dioxide BUN 23 H Creatinine 0.4 L Glucose 122 H POC Glucose 107 H Lactic Acid Calcium 11.0 H Ionized Calcium Phosphorus Magnesium Total Bilirubin AST ALT Alkaline Phosphatase Ammonia Total Creatine Kinase CK-MB (CK-2) CK-MB (CK-2) Rel Index Total Protein Albumin Urine WBC (Auto) Vancomycin Trough Salicylates Acetaminophen Plasma/Serum Alcohol Crossmatch 01/26/20 01/26/20 01/26/20 06:27 12:06 16:49 WBC RBC Hgb Hct MCH RDW Plt Count Lymph % (Auto) [place] % (Auto) [place] # Baso # Seg Neutrophils % Seg Neuts % (Manual) Lymphocytes % (Manual) Monocytes % (Manual) Seg Neutrophils # Seg Neutrophils # Man Lymphocytes # (Manual) Monocytes # (Manual) Eosinophils # (Manual) Basophils # (Manual) PT INR APTT ABG pH ABG pO2 ABG HCO3 ABG O2 Saturation ABG Base Excess ABG Hemoglobin Oxyhemoglobin Sodium Potassium Chloride Carbon Dioxide BUN Creatinine Glucose POC Glucose 132 H 132 H 110 H Lactic Acid Calcium Ionized Calcium Phosphorus Magnesium Total Bilirubin AST ALT Alkaline Phosphatase Ammonia Total Creatine Kinase CK-MB (CK-2) CK-MB (CK-2) Rel Index Total Protein Albumin Urine WBC (Auto) Vancomycin Trough Salicylates Acetaminophen Plasma/Serum Alcohol Crossmatch 01/27/20 01/27/20 01/27/20 00:08 11:49 16:24 WBC RBC Hgb Hct MCH RDW Plt Count Lymph % (Auto) [place] % (Auto) [place] # Baso # Seg Neutrophils % Seg Neuts % (Manual) Lymphocytes % (Manual) Monocytes % (Manual) Seg Neutrophils # Seg Neutrophils # Man Lymphocytes # (Manual) Monocytes # (Manual) Eosinophils # (Manual) Basophils # (Manual) PT INR APTT ABG pH ABG pO2 ABG HCO3 ABG O2 Saturation ABG Base Excess ABG Hemoglobin Oxyhemoglobin Sodium Potassium Chloride Carbon Dioxide BUN Creatinine Glucose POC Glucose 107 H 119 H 129 H Lactic Acid Calcium Ionized Calcium Phosphorus Magnesium Total Bilirubin AST ALT Alkaline Phosphatase Ammonia Total Creatine Kinase CK-MB (CK-2) CK-MB (CK-2) Rel Index Total Protein Albumin Urine WBC (Auto) Vancomycin Trough Salicylates Acetaminophen Plasma/Serum Alcohol Crossmatch 01/27/20 01/28/20 01/28/20 18:28 01:00 06:22 WBC RBC Hgb Hct MCH RDW Plt Count Lymph % (Auto) [place] % (Auto) [place] # Baso # Seg Neutrophils % Seg Neuts % (Manual) Lymphocytes % (Manual) Monocytes % (Manual) Seg Neutrophils # Seg Neutrophils # Man Lymphocytes # (Manual) Monocytes # (Manual) Eosinophils # (Manual) Basophils # (Manual) PT INR APTT ABG pH ABG pO2 ABG HCO3 ABG O2 Saturation ABG Base Excess ABG Hemoglobin Oxyhemoglobin Sodium Potassium Chloride Carbon Dioxide BUN Creatinine Glucose POC Glucose 126 H 121 H 114 H Lactic Acid Calcium Ionized Calcium Phosphorus Magnesium Total Bilirubin AST ALT Alkaline Phosphatase Ammonia Total Creatine Kinase CK-MB (CK-2) CK-MB (CK-2) Rel Index Total Protein Albumin Urine WBC (Auto) Vancomycin Trough Salicylates Acetaminophen Plasma/Serum Alcohol Crossmatch 01/28/20 01/28/20 01/29/20 11:47 18:00 00:05 WBC RBC Hgb Hct MCH RDW Plt Count Lymph % (Auto) [place] % (Auto) [place] # Baso # Seg Neutrophils % Seg Neuts % (Manual) Lymphocytes % (Manual) Monocytes % (Manual) Seg Neutrophils # Seg Neutrophils # Man Lymphocytes # (Manual) Monocytes # (Manual) Eosinophils # (Manual) Basophils # (Manual) PT INR APTT ABG pH ABG pO2 ABG HCO3 ABG O2 Saturation ABG Base Excess ABG Hemoglobin Oxyhemoglobin Sodium Potassium Chloride Carbon Dioxide BUN Creatinine Glucose POC Glucose 106 H 117 H 127 H Lactic Acid Calcium Ionized Calcium Phosphorus Magnesium Total Bilirubin AST ALT Alkaline Phosphatase Ammonia Total Creatine Kinase CK-MB (CK-2) CK-MB (CK-2) Rel Index Total Protein Albumin Urine WBC (Auto) Vancomycin Trough Salicylates Acetaminophen Plasma/Serum Alcohol Crossmatch 01/29/20 01/29/20 06:04 11:40 WBC RBC Hgb Hct MCH RDW Plt Count Lymph % (Auto) [place] % (Auto) [place] # Baso # Seg Neutrophils % Seg Neuts % (Manual) Lymphocytes % (Manual) Monocytes % (Manual) Seg Neutrophils # Seg Neutrophils # Man Lymphocytes # (Manual) Monocytes # (Manual) Eosinophils # (Manual) Basophils # (Manual) PT INR APTT ABG pH ABG pO2 ABG HCO3 ABG O2 Saturation ABG Base Excess ABG Hemoglobin Oxyhemoglobin Sodium Potassium Chloride Carbon Dioxide BUN Creatinine Glucose POC Glucose 147 H 139 H Lactic Acid Calcium Ionized Calcium Phosphorus Magnesium Total Bilirubin AST ALT Alkaline Phosphatase Ammonia Total Creatine Kinase CK-MB (CK-2) CK-MB (CK-2) Rel Index Total Protein Albumin Urine WBC (Auto) Vancomycin Trough Salicylates Acetaminophen Plasma/Serum Alcohol Crossmatch Allied health notes reviewed: nursing
--- NOTE | 2020-01-29 14:19 | Progress Note ---
Assessment and Plan / Anoxic brain injury: suspected CT head: No acute abnormality. EEG ordered showed Generalized slowing. No seizures or epileptiform activity. Per neurology : Patient found to have intact corneal/VOR/cough reflexes, and is withdrawing lower extremities, given that patient had an out of hospital cardiac arrest, the time of which is uncertain, the likelihood of meaningful neurological recovery is somewhat low. -Patient now opening her eyes and able to follow minor command by nodding head /Acute Respiratory failure -s/p intubation, s/p trach and PEG on 12/12 with mechanical ventilation, now on T-piece - CTA was done and negative for PE, - Echo quality is poor, showed diastolic dysfunction - continue weaning as tolerated /Anemia, microcytic - Status post 3 units PRBC transfusion, H&H low stable /Acute metabolic encephalopathy/toxic encephalopathy due to the above - cont supportive care /Hyperammonemia - likely from liver disease related to EtOH abuse - Patient had elevated ammonia level and treated with lactulose /Metabolic Acidosis -Alcohol ketoacidosis vs hypoprofusion -Continue to monitor /ELevated LFTs, stable now - due to ischemic hepatitis. /Leucocytosis with sepsis - Source MRSA bacteremia and MSSA pneumonia. UA showed pyuria. RUQ US showed no ascites. - Repeat TTE negative for vegetation. Completed 7 days of Ceftriaxone on 11/29/2019. -Treated with Abx vancomycin 1 gm IV q 12 hour total 2 week till 12/30/2019 /MSSA pneumonia: Status post vancomycin till 12/30/2019 /ALcohol USe Disorder - given ongoing Alcohol use almost daily, s/p IV Thiamine - monitor /Severe hypokalemia -Repleted /Seizure disorder: treat with Keppra /H. Influenzae, tracheobronchitis, treated with abx DNR CODE STATUS Disposition: prognosis guarded. Family okay for DNR, PT recommended subacute rehab, discharge pending on placement. Need negative COVID 19 for placement, ordered. Brief History: 54-year-old female with a past medical history of Hypertension, Depression, Tobacco use Disorder, Alcohol use Disorder as confirmed by Daughter and pt's mother presents to the hospital status post cardiac arrest at home. EMS found pt in [place]. They were unable to intubate patient with a ET tube because she was clenching down therefore Joe airway placed. Per the ED physician who evaluated pt, Patient presented with a pulse, intermittent respirations, and bagging morley pport via Joe airway with O2 sat of 100%. Accu-Chek of 71 obtained by EMS. She was intubated in the ER and called for admission. Following admission patient was diagnosed with anoxic brain injury, sepsis with MRSA bacteremia and MSSA pneumonia, alcoholic liver disease. Family member initially wished for full code then changed to DNR, patient treated with IV antibiotics for sepsis, status post trach and PEG on 12/13/19. Weaned off from the vent and put on T- piece. Patient is uninsured, waiting for placement, guarded prognosis. Physical exam: General appearance: Present: other (elderly female, open eyes) - EENT Eyes: no scleral icterus, no conjunctival injection, pupil not reactive ENT: clear oral mucosa, dentition normal, no oropharyngeal erythema Ears: bilateral: normal - Neck Neck: trach on place - Respiratory Respiratory effort: other (on T-piece) Respiratory: bilateral: rales - Cardiovascular Rhythm: regular Heart Sounds: Present: S1 & S2. Absent: gallop, rub Extremities: pulses intact, No edema, normal color - Gastrointestinal General gastrointestinal: Present: soft, non-tender, non-distended, normal bowel sounds - Integumentary Integumentary: clear, warm, dry - Musculoskeletal Musculoskeletal: No joint swelling or tenderness - Neurologic Neurologic: other (2+ reflexes throughout). respond to commend and nods head. generalized weakness - Psychiatric Psychiatric: co-operative Subjective Date of service: 01/29/20 Principal diagnosis: Ac cardiopulmonary arrest; Ac hypoxemic resp failure; Acute encephalopathy Interval history: Patient seen and examined medical records reviewed Patient is alert and awake not in acute distress Tracheostomy on T-piece, Vital signs noted discharge pending on placement, need negative COVID 19 for placement Objective - Constitutional Vitals: Vital Signs - 12hr 01/29/20 01/29/20 01/29/20 02:30 03:00 03:07 Temperature Pulse Rate 116 H Pulse Rate [ 103 H Anterior Right Throughout] Respiratory Rate Respiratory 20 Rate [Anterior Right Throughout] Blood Pressure Blood Pressure [Left] O2 Sat by Pulse 97 100 Oximetry O2 Sat by Pulse Oximetry [ Assessment] 01/29/20 01/29/20 01/29/20 03:20 04:11 07:38 Temperature 97.6 F Pulse Rate 108 H Pulse Rate [ 109 H Anterior Right Throughout] Respiratory 20 Rate Respiratory 20 Rate [Anterior Right Throughout] Blood Pressure 106/74 Blood Pressure [Left] O2 Sat by Pulse 98 Oximetry O2 Sat by Pulse 97 Oximetry [ Assessment] 01/29/20 01/29/20 01/29/20 07:55 07:58 12:26 Temperature 98.7 F 98.6 F Pulse Rate 113 H 127 H Pulse Rate [ Anterior Right Throughout] Respiratory 18 18 Rate Respiratory Rate [Anterior Right Throughout] Blood Pressure 124/77 Blood Pressure 125/90 [Left] O2 Sat by Pulse 98 98 97 Oximetry O2 Sat by Pulse 98 Oximetry [ Assessment] - Labs CBC & Chem 7: 01/26/20 05:59 01/26/20 05:59 Labs: Abnormal lab results 01/28/20 01/29/20 01/29/20 Range/Units 18:00 00:05 06:04 POC Glucose 117 H 127 H 147 H (70-105) 01/29/20 Range/Units 11:40 POC Glucose 139 H (70-105)
[2020-01-29] MEDS: QUEtiapine 100 MG TAB FEEDTUBE SCH (22:16)
[2020-01-30] MEDS: LEVALBUTEROL 0.63 MG/3 ML NEBU IH SCH ×4 (04:07→21:46)
[2020-01-30] MEDS ORDERED: LEVALBUTEROL 1.25 MG/3 ML NEB IH ONE ×2 (07:25→13:44)
[2020-01-30] MEDS: SERTRALINE 50 MG TAB PO SCH (09:38)
[2020-01-30] MEDS: MIRTAZAPINE 30 MG TAB PO SCH (09:38)
[2020-01-30] MEDS: TAMSULOSIN 0.4 MG CAP PO SCH (09:38)
[2020-01-30] MEDS: hydrOXYzine PAMOATE 25 MG CAP PO SCH ×2 (09:38→21:33)
[2020-01-30] MEDS: levETIRAcetam 500 MG/5 ML ORAL LIQD PO SCH ×2 (09:39→21:32)
[2020-01-30] MEDS: LANSOPRAZOLE 30 MG SOLUTAB FEEDTUBE SCH (09:39)
[2020-01-30] MEDS: GLYCOPYRROLATE 1 MG TAB PO SCH ×3 (09:39→21:33)
--- NOTE | 2020-01-30 13:54 | Discharge Summary ---
Providers - Providers Date of Admission: 11/23/19 01:40 Date of discharge: 02/05/20 Attending physician: ARASH PACHECO 11/22/19 23:23 Consult to Dietitian/Nutrition [CONS] Routine Physician Instructions: Reason For Exam: Reason for Consult: Evaluate nutritional intake 11/23/19 02:30 Consult to Physician [CONS] Urgent Comment: Consulting Provider: TENA CORONA Physician Instructions: Reason For Exam: s/p cardiac arrest 11/24/19 13:03 Consult to Physician [CONS] Routine Comment: Consulting Provider: JANICE ADAMS Physician Instructions: Reason For Exam: fevers, sepsis, post cardiac arrest 11/24/19 13:04 Consult to Physician [CONS] Routine Comment: Consulting Provider: MIGNON LIVE Physician Instructions: Reason For Exam: post cardiac arrest, encephalopathy 12/05/19 19:39 Consult to Physician [CONS] Routine Comment: Consulting Provider: SIMONA ARITA Physician Instructions: Reason For Exam: trach and PEG 12/14/19 11:46 Consult to Physician [CONS] Routine Comment: Consulting Provider: JEFFERY STEVENS Physician Instructions: I notified Reason For Exam: re-consult for fevers after trach and PEG 12/18/19 12:12 Consult to Case Management [CONS] Stat Services Needed at Discharge: Other Notified:: energy operations vice president Additional Physician Instructions: OPAT MRSA bacteremia Infuse vancomycin 1 gm IV q 12 hour total 2 week till 12/30/2019. Keep vancomycin trough 10-20. Labs CBC, creat, CRP, vancomycin trough weekly. Fax labs to [phone] Janice Nicolas MD 01/01/20 13:37 Physical Therapy Evaluation and Treat [CONS] Routine Comment: Reason For Exam: placement 01/14/20 17:43 Consult to Wound/ET Nurse [CONS] Routine Reason For Exam: wound eval 01/15/20 07:45 Consult to Wound/ET Nurse [CONS] Routine Reason For Exam: wound eval of sacrum 01/16/20 13:23 Speech Therapy Eval for Passy-Nitro Valve [CONS] Urgent Reason For Exam: trach needing speaking valve Speech Therapy Evaluation and Treat [CONS] Urgent Reason For Exam: trach needing speaking valve 01/26/20 00:49 Consult to Wound/ET Nurse [CONS] Routine Reason For Exam: sacral wound eval 01/27/20 12:18 Consult to Wound/ET Nurse [CONS] Urgent Reason For Exam: wound eval 01/28/20 21:18 Consult to Wound/ET Nurse [CONS] Routine Reason For Exam: wound eval for trach redness and pressure sore Primary care physician: [employer] Hospitalization Condition: Stable Hospital course: 54-year-old female with a past medical history of Hypertension, Depression, Tobacco use Disorder, Alcohol use Disorder as confirmed by Daughter and pt's mother presents to the hospital status post cardiac arrest at home. EMS found pt in [place]. They were unable to intubate patient with a ET tube because she was clenching down therefore Joe airway placed. Per the ED physician who evaluated pt, Patient presented with a pulse, intermittent respirations, and bagging support via Joe airway with O2 sat of 100%. Accu-Chek of 71 obtained by EMS. She was intubated in the ER and called for admission. Following admission patient was diagnosed with anoxic brain injury, sepsis with MRSA bacteremia and MSSA pneumonia, alcoholic liver disease. Family member initially wished for full code then changed to DNR, patient treated with IV antibiotics for sepsis, status post trach and PEG on 12/13/19. Weaned off from the vent and put on T- piece. Her discharge got delayed for the placement issue. She was negative for COVID-19 and eventually discharged to SNF facility in stable condition. Discharge diagnosis and mx / Anoxic brain injury: suspected CT head: No acute abnormality. EEG ordered showed Generalized slowing. No seizures or epileptiform activity. Neurology evaluated the patient and recommended supportive care. -Patient now can follow commands and speak few words. /Acute Respiratory failure -s/p intubation, s/p trach and PEG on 12/12 with mechanical ventilation, now on T-piece - CTA was done and negative for PE, - Echo quality is poor, showed diastolic dysfunction - continue weaning as tolerated /S/P [place] cardiac arrest at home - Ef 45-50% on 2d echo with normal troponin - medical mx. /Anemia, microcytic - Status post 3 units PRBC transfusion, H&H low stable /Acute metabolic encephalopathy/toxic encephalopathy due to sepsis, s/p cardiac arrest - cont supportive care /Hyperammonemia - likely from liver disease related to EtOH abuse - Patient had elevated ammonia level and treated with lactulose /Metabolic Acidosis -Alcohol ketoacidosis vs hypoprofusion -resolved /ELevated LFTs, stable now - due to ischemic hepatitis. /Leucocytosis with sepsis - Source MRSA bacteremia and MSSA pneumonia. UA showed pyuria. RUQ US showed no ascites. - Repeat TTE negative for vegetation. Completed 7 days of Ceftriaxone on 11/29/2019. -Treated with Abx vancomycin 1 gm IV q 12 hour total 2 week till 12/30/2019 /MSSA pneumonia: Status post vancomycin till 12/30/2019 /ALcohol USe Disorder - given ongoing Alcohol use almost daily, s/p IV Thiamine - monitor /Severe hypokalemia -Repleted /Seizure disorder: treat with Keppra /H. Influenzae, tracheobronchitis, treated with abx DNR CODE STATUS Disposition: [facility] Physical exam: General appearance: Present: other (elderly female, open eyes) - EENT Eyes: no scleral icterus, no conjunctival injection, pupil not reactive ENT: clear oral mucosa, dentition normal, no oropharyngeal erythema Ears: bilateral: normal - Neck Neck: trach on place - Respiratory Respiratory effort: other (on T-piece) Respiratory: bilateral: rales - Cardiovascular Rhythm: regular Heart Sounds: Present: S1 & S2. Absent: gallop, rub Extremities: pulses intact, No edema, normal color - Gastrointestinal General gastrointestinal: Present: soft, non-tender, non-distended, normal bowel sounds - Integumentary Integumentary: clear, warm, dry - Musculoskeletal Musculoskeletal: No joint swelling or tenderness - Neurologic Neurologic: other (2+ reflexes throughout). respond to commend and can speak. generalized weakness - Psychiatric Psychiatric: co-operative Disposition: - TO HOME OR SELFCARE Time spent for discharge: 34 minutes Core Measure Documentation - Palliative Care Palliative Care/ Comfort Measures: Not Applicable - Core Measures Any of the following diagnoses?: none Exam - Constitutional Vitals: Temp Pulse Resp BP Pulse Ox 98.0 F 119 H 20 126/86 99 01/30/20 11:52 01/30/20 11:52 01/30/20 11:52 01/30/20 11:52 01/30/20 11:52 Plan Activity: other (bedrest) Diet: other (TF) Follow up with: PRIMARY CARE, [Primary Care Provider] - 3-5 Days
[2020-01-30] MEDS: QUEtiapine 100 MG TAB FEEDTUBE SCH (21:32)
[2020-01-31] MEDS: MORPHINE 2 MG/1 ML INJ IV PRN ×2 (01:57→13:41)
[2020-01-31] MEDS: LEVALBUTEROL 0.63 MG/3 ML NEBU IH SCH ×4 (04:02→22:23)
--- NOTE | 2020-01-31 09:07 | Progress Note ---
Assessment and Plan Acute cardiopulmonary arrest with ROSC Acute hypoxemic respiratory failure s/p MVS s/p Tracheostomy Oropharyngeal dysphagia s/p PEG MRSA Bacteremia- treated MRSA pneumonia-treated Acute cvejuoiwe-ujpwv-zsszhv encephalopathy Metabolic acidosis/alcoholic acidosis/Lactic acidosis( resolved) Ischemic hepatitis Erythrocytosis Tobacco use disorder Alcohol use Disorder Continue all current care as documented below Discharge planning -CBC, BMP prn -Replace and correct electrolytes as indicated -Trach care, airway clearance, secretion management( continue scopolamine patch and Robinul) -CXR, ABG prn -Weaning trials as tolerated- ATP then PMV and possible capping as tolerated by secretions -Continue contact isolation for MRSA -Trend WCC and temperature curve -Continue all care as documented below. -PT/OT -Supportive transfusions as indicated for HgB <7g/dL -Continue aspiration precautions, HOB>40 -Continue Stress ulcer prophylaxis -Continue enteric nutritional support at goal rate. -Continue to monitor glycemic control, with target blood glucose 140-180 mg/dL while critically ill. -Avoid hypoglycemia - Continue to wean supplemental oxygen for target O2 sat's > 90% -Continue thiamine, multivitamin and electrolyte replacement -Continue to avoid nephrotoxins, adjust all medications for GFR and CrCL - Continue bronchodilators with pulmonary hygiene - Continue prn analgesia per CPOT score - Continue to maintain of sleep-wake cycle, avoid delirium - Continue mobility protocol and skin assessment per protocol for pressure ulcer prevention - Continue to monitor for clinical seizures - continue other care per attending / other consultants CONDITION: FAIR PROGNOSIS: FAIR CODE STATUS: DNAR Subjective Date of service: 01/31/20 Principal diagnosis: Ac cardiopulmonary arrest; Ac hypoxemic resp failure; Acute encephalopathy Interval history: Patient is seen today for: Acute cardiopulmonary arrest with ROSC; Acute hypoxemic respiratory failure; Acute metabolic-toxic encephalopathy; Ischemic hepatitis; Leucocytosis with lactic acidosis; Tobacco use disorder; Alcohol use Disorder; s/p tracheostomy; s/p PEG Seen and examined at bedside; 24hour events reviewed; nursing and respiratory care staff consulted; no adverse overnight events reported to me; resting peacefully in bed; continues to tolerate PMV/capping trials No fevers, no vomiting, continues to tolerate tube feedings Awake and alert, responsive No new issues Objective Vital Signs - 12hr 01/30/20 01/30/20 01/30/20 21:47 21:55 22:00 Temperature Pulse Rate Pulse Rate [ Anterior Left Throughout] Pulse Rate [ 109 H Anterior Right Throughout] Respiratory Rate Respiratory 22 Rate [Anterior Left Throughout ] Respiratory 20 Rate [Anterior Right Throughout] Blood Pressure Blood Pressure [Left] O2 Sat by Pulse 98 Oximetry O2 Sat by Pulse 99 Oximetry [ Assessment] 01/31/20 01/31/20 01/31/20 00:39 04:04 04:24 Temperature 97.6 F 97.9 F Pulse Rate 107 H 100 H Pulse Rate [ 109 H Anterior Left Throughout] Pulse Rate [ 112 H Anterior Right Throughout] Respiratory 20 20 Rate Respiratory 20 Rate [Anterior Left Throughout ] Respiratory 24 Rate [Anterior Right Throughout] Blood Pressure 128/82 Blood Pressure 129/80 [Left] O2 Sat by Pulse 100 99 Oximetry O2 Sat by Pulse Oximetry [ Assessment] 01/31/20 07:58 Temperature 98.8 F Pulse Rate 100 H Pulse Rate [ Anterior Left Throughout] Pulse Rate [ Anterior Right Throughout] Respiratory 22 Rate Respiratory Rate [Anterior Left Throughout ] Respiratory Rate [Anterior Right Throughout] Blood Pressure 124/76 Blood Pressure [Left] O2 Sat by Pulse 94 Oximetry O2 Sat by Pulse Oximetry [ Assessment] Constitutional: no acute distress, other (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, with midline tracheostomy and with normal respiratory effort at rest) Eyes: non-icteric ENT: oropharynx moist, other (s/p trach) Neck: supple, no lymphadenopathy, no JVD Effort: normal Ascultation: Bilateral: diminished breath sounds, rhonchi Percussion: Bilateral: not dull Cardiovascular: regular rate and rhythm (tachycardia), other (S1,S2) Gastrointestinal: normoactive bowel sounds, soft, non-tender, non-distended Integumentary: normal Extremities: no cyanosis, no edema, pulses normal, no ischemia or petechiae Neurologic: non-focal exam (grossly), pupils equal and round Psychiatric: tearful CBC and BMP: 01/26/20 05:59 01/26/20 05:59 ABG, PT/INR, D-dimer: ABG ABG pH 7.429 pH Units (7.350-7.450) 01/09/20 08:51 ABG pCO2 39.1 mm Hg 01/09/20 08:51 ABG pO2 94.3 mm Hg (80.0-90.0) H 01/09/20 08:51 ABG O2 Saturation 97.4 % (95.0-99.0) 01/09/20 08:51 PT/INR, D-dimer PT 17.0 Sec. (12.2-14.9) H 11/23/19 03:47 INR 1.36 (0.87-1.13) H 11/23/19 03:47 Abnormal lab findings: Abnormal Labs 11/22/19 11/22/19 11/22/19 23:17 23:18 23:27 WBC 21.2 H RBC 3.59 L Hgb 9.8 L Hct MCH 27 L RDW 18.6 H Plt Count 454 H Lymph % (Auto) [place] % (Auto) [place] # Baso # Seg Neutrophils % Seg Neuts % (Manual) 86.0 H Lymphocytes % (Manual) 9.0 L Monocytes % (Manual) Seg Neutrophils # Seg Neutrophils # Man 18.2 H Lymphocytes # (Manual) Monocytes # (Manual) 1.1 H Eosinophils # (Manual) Basophils # (Manual) PT INR APTT ABG pH ABG pO2 ABG HCO3 ABG O2 Saturation ABG Base Excess ABG Hemoglobin Oxyhemoglobin Sodium Potassium Chloride Carbon Dioxide BUN Creatinine Glucose POC Glucose 53 L Lactic Acid Calcium Ionized Calcium Phosphorus Magnesium Total Bilirubin AST ALT Alkaline Phosphatase Ammonia Total Creatine Kinase CK-MB (CK-2) CK-MB (CK-2) Rel Index Total Protein Albumin Urine WBC (Auto) 40.0 H Vancomycin Trough Salicylates Acetaminophen Plasma/Serum Alcohol Crossmatch 11/22/19 11/22/19 11/22/19 23:27 23:27 23:27 WBC RBC Hgb Hct MCH RDW Plt Count Lymph % (Auto) [place] % (Auto) [place] # Baso # Seg Neutrophils % Seg Neuts % (Manual) Lymphocytes % (Manual) Monocytes % (Manual) Seg Neutrophils # Seg Neutrophils # Man Lymphocytes # (Manual) Monocytes # (Manual) Eosinophils # (Manual) Basophils # (Manual) PT INR APTT ABG pH ABG pO2 ABG HCO3 ABG O2 Saturation ABG Base Excess ABG Hemoglobin Oxyhemoglobin Sodium Potassium 2.4 L* Chloride 85.1 L Carbon Dioxide 19 L BUN Creatinine 0.5 L Glucose 261 H POC Glucose Lactic Acid Calcium Ionized Calcium Phosphorus Magnesium Total Bilirubin AST 609 H ALT 152 H Alkaline Phosphatase 160 H Ammonia 117.0 H Total Creatine Kinase 139 H CK-MB (CK-2) 8.3 H CK-MB (CK-2) Rel Index 5.9 H Total Protein Albumin 3.6 L Urine WBC (Auto) Vancomycin Trough Salicylates < 0.3 L Acetaminophen Plasma/Serum Alcohol Crossmatch 11/22/19 11/22/19 11/23/19 23:27 23:27 01:10 WBC RBC Hgb Hct MCH RDW Plt Count Lymph % (Auto) [place] % (Auto) [place] # Baso # Seg Neutrophils % Seg Neuts % (Manual) Lymphocytes % (Manual) Monocytes % (Manual) Seg Neutrophils # Seg Neutrophils # Man Lymphocytes # (Manual) Monocytes # (Manual) Eosinophils # (Manual) Basophils # (Manual) PT INR APTT ABG pH 7.273 L ABG pO2 209.7 H ABG HCO3 ABG O2 Saturation 99.2 H ABG Base Excess -3.9 L ABG Hemoglobin 10.6 L Oxyhemoglobin 93.9 L Sodium Potassium Chloride Carbon Dioxide BUN Creatinine Glucose POC Glucose Lactic Acid Calcium Ionized Calcium Phosphorus Magnesium Total Bilirubin AST ALT Alkaline Phosphatase Ammonia Total Creatine Kinase CK-MB (CK-2) CK-MB (CK-2) Rel Index Total Protein Albumin Urine WBC (Auto) Vancomycin Trough Salicylates Acetaminophen < 5.0 L Plasma/Serum Alcohol 0.08 H Crossmatch 11/23/19 11/23/19 11/23/19 01:19 01:19 03:47 WBC RBC Hgb Hct MCH RDW Plt Count Lymph % (Auto) [place] % (Auto) [place] # Baso # Seg Neutrophils % Seg Neuts % (Manual) Lymphocytes % (Manual) Monocytes % (Manual) Seg Neutrophils # Seg Neutrophils # Man Lymphocytes # (Manual) Monocytes # (Manual) Eosinophils # (Manual) Basophils # (Manual) PT 16.3 H INR 1.29 H APTT ABG pH ABG pO2 ABG HCO3 ABG O2 Saturation ABG Base Excess ABG Hemoglobin Oxyhemoglobin Sodium Potassium Chloride Carbon Dioxide BUN Creatinine Glucose POC Glucose Lactic Acid 2.10 H* 5.00 H* Calcium Ionized Calcium Phosphorus Magnesium Total Bilirubin AST ALT Alkaline Phosphatase Ammonia Total Creatine Kinase CK-MB (CK-2) CK-MB (CK-2) Rel Index Total Protein Albumin Urine WBC (Auto) Vancomycin Trough Salicylates Acetaminophen Plasma/Serum Alcohol Crossmatch 11/23/19 11/23/19 11/23/19 03:47 03:47 04:53 WBC RBC Hgb 9.4 L Hct MCH RDW Plt Count Lymph % (Auto) [place] % (Auto) [place] # Baso # Seg Neutrophils % Seg Neuts % (Manual) Lymphocytes % (Manual) Monocytes % (Manual) Seg Neutrophils # Seg Neutrophils # Man Lymphocytes # (Manual) Monocytes # (Manual) Eosinophils # (Manual) Basophils # (Manual) PT 17.0 H INR 1.36 H APTT 128.2 H* ABG pH ABG pO2 ABG HCO3 ABG O2 Saturation ABG Base Excess ABG Hemoglobin Oxyhemoglobin Sodium Potassium Chloride Carbon Dioxide 18 L BUN Creatinine 0.5 L Glucose 105 H POC Glucose Lactic Acid Calcium 8.3 L Ionized Calcium Phosphorus 2.40 L Magnesium Total Bilirubin 1.30 H AST 761 H ALT 158 H Alkaline Phosphatase 143 H Ammonia Total Creatine Kinase CK-MB (CK-2) CK-MB (CK-2) Rel Index Total Protein Albumin 2.8 L Urine WBC (Auto) Vancomycin Trough Salicylates Acetaminophen Plasma/Serum Alcohol Crossmatch 11/23/19 11/23/19 11/23/19 05:12 06:32 06:32 WBC 16.8 H RBC 3.31 L Hgb 8.9 L Hct 28.7 L MCH 27 L RDW 18.6 H Plt Count Lymph % (Auto) [place] % (Auto) [place] # Baso # Seg Neutrophils % Seg Neuts % (Manual) 94.0 H Lymphocytes % (Manual) 1.0 L Monocytes % (Manual) Seg Neutrophils # Seg Neutrophils # Man 15.8 H Lymphocytes # (Manual) 0.2 L Monocytes # (Manual) Eosinophils # (Manual) Basophils # (Manual) PT INR APTT ABG pH ABG pO2 ABG HCO3 ABG O2 Saturation ABG Base Excess -3.2 L ABG Hemoglobin 9.0 L Oxyhemoglobin 93.6 L Sodium Potassium Chloride Carbon Dioxide BUN Creatinine Glucose POC Glucose Lactic Acid Calcium Ionized Calcium 4.5 L Phosphorus Magnesium Total Bilirubin AST ALT Alkaline Phosphatase Ammonia Total Creatine Kinase CK-MB (CK-2) CK-MB (CK-2) Rel Index Total Protein Albumin Urine WBC (Auto) Vancomycin Trough Salicylates Acetaminophen Plasma/Serum Alcohol Crossmatch 11/23/19 11/24/19 11/24/19 06:32 04:35 04:35 WBC RBC Hgb Hct MCH RDW Plt Count Lymph % (Auto) [place] % (Auto) [place] # Baso # Seg Neutrophils % Seg Neuts % (Manual) Lymphocytes % (Manual) Monocytes % (Manual) Seg Neutrophils # Seg Neutrophils # Man Lymphocytes # (Manual) Monocytes # (Manual) Eosinophils # (Manual) Basophils # (Manual) PT INR APTT ABG pH ABG pO2 ABG HCO3 ABG O2 Saturation ABG Base Excess ABG Hemoglobin Oxyhemoglobin Sodium Potassium Chloride Carbon Dioxide BUN Creatinine Glucose POC Glucose Lactic Acid 3.30 H* Calcium Ionized Calcium Phosphorus Magnesium 1.40 L Total Bilirubin AST ALT Alkaline Phosphatase Ammonia 98.0 H Total Creatine Kinase CK-MB (CK-2) CK-MB (CK-2) Rel Index Total Protein Albumin Urine WBC (Auto) Vancomycin Trough Salicylates Acetaminophen Plasma/Serum Alcohol Crossmatch 11/24/19 11/25/19 11/25/19 05:22 04:34 05:05 WBC 17.3 H RBC 2.88 L Hgb 7.8 L Hct 24.6 L MCH 27 L RDW 18.5 H Plt Count Lymph % (Auto) 7.7 L [place] % (Auto) 9.7 H [place] # 1.7 H Baso # Seg Neutrophils % 82.2 H Seg Neuts % (Manual) Lymphocytes % (Manual) Monocytes % (Manual) Seg Neutrophils # 14.2 H Seg Neutrophils # Man Lymphocytes # (Manual) Monocytes # (Manual) Eosinophils # (Manual) Basophils # (Manual) PT INR APTT ABG pH 7.475 H ABG pO2 ABG HCO3 29.4 H 32.3 H ABG O2 Saturation ABG Base Excess 5.4 H 6.9 H ABG Hemoglobin 9.0 L 10.6 L Oxyhemoglobin 94.3 L Sodium Potassium Chloride Carbon Dioxide BUN Creatinine Glucose POC Glucose Lactic Acid Calcium Ionized Calcium Phosphorus Magnesium Total Bilirubin AST ALT Alkaline Phosphatase Ammonia Total Creatine Kinase CK-MB (CK-2) CK-MB (CK-2) Rel Index Total Protein Albumin Urine WBC (Auto) Vancomycin Trough Salicylates Acetaminophen Plasma/Serum Alcohol Crossmatch 11/25/19 11/25/19 11/26/19 05:05 22:46 03:31 WBC RBC Hgb Hct MCH RDW Plt Count Lymph % (Auto) [place] % (Auto) [place] # Baso # Seg Neutrophils % Seg Neuts % (Manual) Lymphocytes % (Manual) Monocytes % (Manual) Seg Neutrophils # Seg Neutrophils # Man Lymphocytes # (Manual) Monocytes # (Manual) Eosinophils # (Manual) Basophils # (Manual) PT INR APTT ABG pH 7.459 H ABG pO2 ABG HCO3 34.2 H ABG O2 Saturation ABG Base Excess 9.4 H ABG Hemoglobin 7.6 L Oxyhemoglobin 94.8 L Sodium 152 H D 147 H Potassium 2.3 L* D 2.8 L* D Chloride 107.8 H Carbon Dioxide 31 H D 33 H BUN Creatinine 0.6 L 0.6 L Glucose 148 H 177 H POC Glucose Lactic Acid Calcium Ionized Calcium Phosphorus Magnesium Total Bilirubin AST 105 H ALT 71 H Alkaline Phosphatase 155 H Ammonia Total Creatine Kinase CK-MB (CK-2) CK-MB (CK-2) Rel Index Total Protein 5.2 L D Albumin 2.9 L Urine WBC (Auto) Vancomycin Trough Salicylates Acetaminophen Plasma/Serum Alcohol Crossmatch 11/26/19 11/26/19 11/27/19 08:24 08:24 04:20 WBC 12.0 H RBC 3.00 L Hgb 8.0 L 9.3 L Hct 25.9 L 29.7 L MCH 27 L RDW 18.5 H Plt Count Lymph % (Auto) [place] % (Auto) [place] # Baso # Seg Neutrophils % Seg Neuts % (Manual) 89.0 H Lymphocytes % (Manual) 4.0 L Monocytes % (Manual) Seg Neutrophils # Seg Neutrophils # Man 10.7 H Lymphocytes # (Manual) 0.5 L Monocytes # (Manual) Eosinophils # (Manual) Basophils # (Manual) PT INR APTT ABG pH ABG pO2 ABG HCO3 ABG O2 Saturation ABG Base Excess ABG Hemoglobin Oxyhemoglobin Sodium 146 H Potassium 3.4 L D Chloride Carbon Dioxide BUN Creatinine 0.5 L Glucose 165 H POC Glucose Lactic Acid Calcium Ionized Calcium Phosphorus Magnesium Total Bilirubin AST 57 H ALT Alkaline Phosphatase 166 H Ammonia Total Creatine Kinase CK-MB (CK-2) CK-MB (CK-2) Rel Index Total Protein Albumin 2.9 L Urine WBC (Auto) Vancomycin Trough Salicylates Acetaminophen Plasma/Serum Alcohol Crossmatch 11/27/19 11/27/19 11/27/19 04:28 04:28 04:42 WBC RBC Hgb Hct MCH RDW Plt Count Lymph % (Auto) [place] % (Auto) [place] # Baso # Seg Neutrophils % Seg Neuts % (Manual) Lymphocytes % (Manual) Monocytes % (Manual) Seg Neutrophils # Seg Neutrophils # Man Lymphocytes # (Manual) Monocytes # (Manual) Eosinophils # (Manual) Basophils # (Manual) PT INR APTT ABG pH 7.470 H ABG pO2 74.0 L ABG HCO3 33.8 H ABG O2 Saturation ABG Base Excess 9.1 H ABG Hemoglobin 8.7 L Oxyhemoglobin 94.7 L Sodium 146 H Potassium 2.9 L* Chloride Carbon Dioxide BUN 25 H Creatinine Glucose 213 H POC Glucose Lactic Acid Calcium Ionized Calcium Phosphorus 1.00 L Magnesium Total Bilirubin AST ALT Alkaline Phosphatase Ammonia Total Creatine Kinase CK-MB (CK-2) CK-MB (CK-2) Rel Index Total Protein Albumin Urine WBC (Auto) Vancomycin Trough Salicylates Acetaminophen Plasma/Serum Alcohol Crossmatch 11/27/19 11/27/19 11/27/19 05:37 12:20 15:46 WBC RBC Hgb Hct MCH RDW Plt Count Lymph % (Auto) [place] % (Auto) [place] # Baso # Seg Neutrophils % Seg Neuts % (Manual) Lymphocytes % (Manual) Monocytes % (Manual) Seg Neutrophils # Seg Neutrophils # Man Lymphocytes # (Manual) Monocytes # (Manual) Eosinophils # (Manual) Basophils # (Manual) PT INR APTT ABG pH ABG pO2 ABG HCO3 ABG O2 Saturation ABG Base Excess ABG Hemoglobin Oxyhemoglobin Sodium 146 H Potassium 3.5 L D Chloride Carbon Dioxide BUN 24 H Creatinine 0.6 L Glucose 187 H POC Glucose 117 H 220 H Lactic Acid Calcium Ionized Calcium Phosphorus Magnesium Total Bilirubin AST ALT Alkaline Phosphatase Ammonia Total Creatine Kinase CK-MB (CK-2) CK-MB (CK-2) Rel Index Total Protein Albumin Urine WBC (Auto) Vancomycin Trough Salicylates Acetaminophen Plasma/Serum Alcohol Crossmatch 11/27/19 11/28/19 11/28/19 17:28 05:00 05:02 WBC RBC Hgb Hct MCH RDW Plt Count Lymph % (Auto) [place] % (Auto) [place] # Baso # Seg Neutrophils % Seg Neuts % (Manual) Lymphocytes % (Manual) Monocytes % (Manual) Seg Neutrophils # Seg Neutrophils # Man Lymphocytes # (Manual) Monocytes # (Manual) Eosinophils # (Manual) Basophils # (Manual) PT INR APTT ABG pH ABG pO2 72.4 L ABG HCO3 33.6 H ABG O2 Saturation 94.1 L ABG Base Excess 7.3 H ABG Hemoglobin Oxyhemoglobin 91.8 L Sodium 146 H Potassium 3.3 L Chloride Carbon Dioxide BUN 25 H Creatinine 0.6 L Glucose 176 H POC Glucose 198 H Lactic Acid Calcium Ionized Calcium Phosphorus Magnesium Total Bilirubin AST ALT Alkaline Phosphatase Ammonia Total Creatine Kinase CK-MB (CK-2) CK-MB (CK-2) Rel Index Total Protein Albumin Urine WBC (Auto) Vancomycin Trough Salicylates Acetaminophen Plasma/Serum Alcohol Crossmatch 11/28/19 11/28/19 11/29/19 05:02 18:55 10:43 WBC 15.2 H 19.0 H RBC 3.06 L 3.01 L Hgb 8.3 L 8.3 L Hct 27.0 L 26.4 L MCH 27 L RDW 19.0 H 19.7 H Plt Count 479 H 611 H Lymph % (Auto) [place] % (Auto) [place] # Baso # Seg Neutrophils % Seg Neuts % (Manual) 92.0 H Lymphocytes % (Manual) 2.0 L Monocytes % (Manual) Seg Neutrophils # Seg Neutrophils # Man 14.0 H Lymphocytes # (Manual) 0.3 L Monocytes # (Manual) Eosinophils # (Manual) Basophils # (Manual) PT INR APTT ABG pH ABG pO2 ABG HCO3 ABG O2 Saturation ABG Base Excess ABG Hemoglobin Oxyhemoglobin Sodium Potassium Chloride Carbon Dioxide BUN Creatinine Glucose POC Glucose 138 H Lactic Acid Calcium Ionized Calcium Phosphorus Magnesium Total Bilirubin AST ALT Alkaline Phosphatase Ammonia Total Creatine Kinase CK-MB (CK-2) CK-MB (CK-2) Rel Index Total Protein Albumin Urine WBC (Auto) Vancomycin Trough Salicylates Acetaminophen Plasma/Serum Alcohol Crossmatch 11/29/19 11/29/19 11/29/19 10:43 12:27 19:25 WBC RBC Hgb Hct MCH RDW Plt Count Lymph % (Auto) [place] % (Auto) [place] # Baso # Seg Neutrophils % Seg Neuts % (Manual) Lymphocytes % (Manual) Monocytes % (Manual) Seg Neutrophils # Seg Neutrophils # Man Lymphocytes # (Manual) Monocytes # (Manual) Eosinophils # (Manual) Basophils # (Manual) PT INR APTT ABG pH ABG pO2 ABG HCO3 ABG O2 Saturation ABG Base Excess ABG Hemoglobin Oxyhemoglobin Sodium Potassium 2.8 L* Chloride Carbon Dioxide BUN 20 H Creatinine 0.5 L Glucose 121 H POC Glucose 128 H 120 H Lactic Acid Calcium Ionized Calcium Phosphorus Magnesium Total Bilirubin AST ALT Alkaline Phosphatase Ammonia Total Creatine Kinase CK-MB (CK-2) CK-MB (CK-2) Rel Index Total Protein Albumin Urine WBC (Auto) Vancomycin Trough Salicylates Acetaminophen Plasma/Serum Alcohol Crossmatch 11/29/19 11/30/19 11/30/19 23:46 04:10 05:02 WBC RBC Hgb Hct MCH RDW Plt Count Lymph % (Auto) [place] % (Auto) [place] # Baso # Seg Neutrophils % Seg Neuts % (Manual) Lymphocytes % (Manual) Monocytes % (Manual) Seg Neutrophils # Seg Neutrophils # Man Lymphocytes # (Manual) Monocytes # (Manual) Eosinophils # (Manual) Basophils # (Manual) PT INR APTT ABG pH ABG pO2 76.3 L ABG HCO3 32.5 H ABG O2 Saturation ABG Base Excess 6.9 H ABG Hemoglobin 8.0 L Oxyhemoglobin 92.6 L Sodium Potassium Chloride Carbon Dioxide BUN Creatinine Glucose POC Glucose 116 H 128 H Lactic Acid Calcium Ionized Calcium Phosphorus Magnesium Total Bilirubin AST ALT Alkaline Phosphatase Ammonia Total Creatine Kinase CK-MB (CK-2) CK-MB (CK-2) Rel Index Total Protein Albumin Urine WBC (Auto) Vancomycin Trough Salicylates Acetaminophen Plasma/Serum Alcohol Crossmatch 11/30/19 11/30/19 11/30/19 05:25 05:25 12:59 WBC 18.4 H RBC 3.10 L Hgb 8.5 L Hct 27.5 L MCH 27 L RDW 20.9 H Plt Count 691 H Lymph % (Auto) 7.1 L [place] % (Auto) 7.7 H [place] # 1.4 H Baso # Seg Neutrophils % 83.4 H Seg Neuts % (Manual) Lymphocytes % (Manual) Monocytes % (Manual) Seg Neutrophils # 15.4 H Seg Neutrophils # Man Lymphocytes # (Manual) Monocytes # (Manual) Eosinophils # (Manual) Basophils # (Manual) PT INR APTT ABG pH ABG pO2 ABG HCO3 ABG O2 Saturation ABG Base Excess ABG Hemoglobin Oxyhemoglobin Sodium 146 H Potassium Chloride 107.2 H Carbon Dioxide BUN Creatinine 0.5 L Glucose 132 H POC Glucose 124 H Lactic Acid Calcium Ionized Calcium Phosphorus Magnesium Total Bilirubin AST 246 H ALT 274 H Alkaline Phosphatase 203 H Ammonia Total Creatine Kinase CK-MB (CK-2) CK-MB (CK-2) Rel Index Total Protein 5.4 L Albumin 2.9 L Urine WBC (Auto) Vancomycin Trough Salicylates Acetaminophen Plasma/Serum Alcohol Crossmatch 11/30/19 12/01/19 12/01/19 17:53 00:05 05:10 WBC RBC Hgb Hct MCH RDW Plt Count Lymph % (Auto) [place] % (Auto) [place] # Baso # Seg Neutrophils % Seg Neuts % (Manual) Lymphocytes % (Manual) Monocytes % (Manual) Seg Neutrophils # Seg Neutrophils # Man Lymphocytes # (Manual) Monocytes # (Manual) Eosinophils # (Manual) Basophils # (Manual) PT INR APTT ABG pH ABG pO2 ABG HCO3 ABG O2 Saturation ABG Base Excess ABG Hemoglobin Oxyhemoglobin Sodium Potassium Chloride Carbon Dioxide BUN Creatinine Glucose POC Glucose 113 H 143 H 145 H Lactic Acid Calcium Ionized Calcium Phosphorus Magnesium Total Bilirubin AST ALT Alkaline Phosphatase Ammonia Total Creatine Kinase CK-MB (CK-2) CK-MB (CK-2) Rel Index Total Protein Albumin Urine WBC (Auto) Vancomycin Trough Salicylates Acetaminophen Plasma/Serum Alcohol Crossmatch 12/01/19 12/01/19 12/01/19 05:33 08:23 08:23 WBC 22.7 H RBC 2.88 L Hgb 7.9 L Hct 25.2 L MCH 27 L RDW 21.0 H Plt Count 732 H Lymph % (Auto) [place] % (Auto) [place] # Baso # Seg Neutrophils % Seg Neuts % (Manual) 91.0 H Lymphocytes % (Manual) 3.0 L Monocytes % (Manual) Seg Neutrophils # Seg Neutrophils # Man 20.7 H Lymphocytes # (Manual) 0.7 L Monocytes # (Manual) 1.1 H Eosinophils # (Manual) Basophils # (Manual) PT INR APTT ABG pH ABG pO2 68.6 L ABG HCO3 34.1 H ABG O2 Saturation ABG Base Excess 9.0 H ABG Hemoglobin 6.5 L Oxyhemoglobin 94.7 L Sodium Potassium Chloride Carbon Dioxide BUN Creatinine 0.5 L Glucose 125 H POC Glucose Lactic Acid Calcium Ionized Calcium Phosphorus Magnesium Total Bilirubin AST ALT Alkaline Phosphatase Ammonia Total Creatine Kinase CK-MB (CK-2) CK-MB (CK-2) Rel Index Total Protein Albumin Urine WBC (Auto) Vancomycin Trough Salicylates Acetaminophen Plasma/Serum Alcohol Crossmatch 12/01/19 12/01/19 12/01/19 13:21 17:54 20:59 WBC RBC Hgb Hct MCH RDW Plt Count Lymph % (Auto) [place] % (Auto) [place] # Baso # Seg Neutrophils % Seg Neuts % (Manual) Lymphocytes % (Manual) Monocytes % (Manual) Seg Neutrophils # Seg Neutrophils # Man Lymphocytes # (Manual) Monocytes # (Manual) Eosinophils # (Manual) Basophils # (Manual) PT INR APTT ABG pH ABG pO2 78.3 L ABG HCO3 33.8 H ABG O2 Saturation 94.9 L ABG Base Excess 7.9 H ABG Hemoglobin 11.5 L Oxyhemoglobin 92.3 L Sodium Potassium Chloride Carbon Dioxide BUN Creatinine Glucose POC Glucose 111 H 115 H Lactic Acid Calcium Ionized Calcium Phosphorus Magnesium Total Bilirubin AST ALT Alkaline Phosphatase Ammonia Total Creatine Kinase CK-MB (CK-2) CK-MB (CK-2) Rel Index Total Protein Albumin Urine WBC (Auto) Vancomycin Trough Salicylates Acetaminophen Plasma/Serum Alcohol Crossmatch 12/02/19 12/03/19 12/04/19 12:55 20:00 04:26 WBC 15.2 H RBC 2.69 L Hgb 7.4 L Hct 23.6 L MCH 27 L RDW 19.9 H Plt Count 838 H Lymph % (Auto) [place] % (Auto) [place] # Baso # Seg Neutrophils % Seg Neuts % (Manual) Lymphocytes % (Manual) Monocytes % (Manual) Seg Neutrophils # Seg Neutrophils # Man Lymphocytes # (Manual) Monocytes # (Manual) Eosinophils # (Manual) Basophils # (Manual) PT INR APTT ABG pH ABG pO2 68.3 L ABG HCO3 33.5 H ABG O2 Saturation 93.5 L ABG Base Excess 8.4 H ABG Hemoglobin 7.3 L Oxyhemoglobin 90.9 L Sodium Potassium Chloride Carbon Dioxide BUN Creatinine Glucose POC Glucose 107 H Lactic Acid Calcium Ionized Calcium Phosphorus Magnesium Total Bilirubin AST ALT Alkaline Phosphatase Ammonia Total Creatine Kinase CK-MB (CK-2) CK-MB (CK-2) Rel Index Total Protein Albumin Urine WBC (Auto) Vancomycin Trough Salicylates Acetaminophen Plasma/Serum Alcohol Crossmatch 12/04/19 12/04/19 12/04/19 04:26 07:45 12:02 WBC 15.9 H RBC 2.88 L Hgb 7.9 L Hct 25.1 L MCH RDW 20.4 H Plt Count 839 H Lymph % (Auto) 11.3 L [place] % (Auto) 15.2 H [place] # 2.4 H Baso # Seg Neutrophils % 72.4 H Seg Neuts % (Manual) Lymphocytes % (Manual) Monocytes % (Manual) Seg Neutrophils # 11.5 H Seg Neutrophils # Man Lymphocytes # (Manual) Monocytes # (Manual) Eosinophils # (Manual) Basophils # (Manual) PT INR APTT ABG pH ABG pO2 ABG HCO3 ABG O2 Saturation ABG Base Excess ABG Hemoglobin Oxyhemoglobin Sodium Potassium Chloride 96.5 L Carbon Dioxide BUN 21 H Creatinine 0.6 L Glucose 107 H POC Glucose 138 H Lactic Acid Calcium Ionized Calcium Phosphorus Magnesium Total Bilirubin AST ALT Alkaline Phosphatase Ammonia Total Creatine Kinase CK-MB (CK-2) CK-MB (CK-2) Rel Index Total Protein Albumin Urine WBC (Auto) Vancomycin Trough Salicylates Acetaminophen Plasma/Serum Alcohol Crossmatch 12/04/19 12/05/19 12/05/19 18:16 11:55 18:36 WBC RBC Hgb Hct MCH RDW Plt Count Lymph % (Auto) [place] % (Auto) [place] # Baso # Seg Neutrophils % Seg Neuts % (Manual) Lymphocytes % (Manual) Monocytes % (Manual) Seg Neutrophils # Seg Neutrophils # Man Lymphocytes # (Manual) Monocytes # (Manual) Eosinophils # (Manual) Basophils # (Manual) PT INR APTT ABG pH ABG pO2 ABG HCO3 ABG O2 Saturation ABG Base Excess ABG Hemoglobin Oxyhemoglobin Sodium Potassium Chloride Carbon Dioxide BUN Creatinine Glucose POC Glucose 135 H 125 H 135 H Lactic Acid Calcium Ionized Calcium Phosphorus Magnesium Total Bilirubin AST ALT Alkaline Phosphatase Ammonia Total Creatine Kinase CK-MB (CK-2) CK-MB (CK-2) Rel Index Total Protein Albumin Urine WBC (Auto) Vancomycin Trough Salicylates Acetaminophen Plasma/Serum Alcohol Crossmatch 12/05/19 12/06/19 12/06/19 23:30 04:14 05:43 WBC RBC Hgb Hct MCH RDW Plt Count Lymph % (Auto) [place] % (Auto) [place] # Baso # Seg Neutrophils % Seg Neuts % (Manual) Lymphocytes % (Manual) Monocytes % (Manual) Seg Neutrophils # Seg Neutrophils # Man Lymphocytes # (Manual) Monocytes # (Manual) Eosinophils # (Manual) Basophils # (Manual) PT INR APTT ABG pH ABG pO2 ABG HCO3 ABG O2 Saturation ABG Base Excess ABG Hemoglobin Oxyhemoglobin Sodium Potassium 5.6 H Chloride 95.0 L Carbon Dioxide BUN 48 H Creatinine 1.3 H D Glucose POC Glucose 126 H 121 H Lactic Acid Calcium Ionized Calcium Phosphorus Magnesium Total Bilirubin AST 89 H ALT 98 H Alkaline Phosphatase 476 H Ammonia Total Creatine Kinase CK-MB (CK-2) CK-MB (CK-2) Rel Index Total Protein Albumin 2.8 L Urine WBC (Auto) Vancomycin Trough Salicylates Acetaminophen Plasma/Serum Alcohol Crossmatch 12/06/19 12/06/19 12/07/19 10:39 14:34 00:19 WBC 17.3 H RBC 2.60 L Hgb 7.1 L Hct 22.7 L MCH 27 L RDW 20.1 H Plt Count 832 H Lymph % (Auto) [place] % (Auto) [place] # Baso # Seg Neutrophils % Seg Neuts % (Manual) Lymphocytes % (Manual) Monocytes % (Manual) Seg Neutrophils # Seg Neutrophils # Man Lymphocytes # (Manual) Monocytes # (Manual) Eosinophils # (Manual) Basophils # (Manual) PT INR APTT ABG pH ABG pO2 ABG HCO3 ABG O2 Saturation ABG Base Excess ABG Hemoglobin Oxyhemoglobin Sodium Potassium Chloride Carbon Dioxide BUN Creatinine Glucose POC Glucose 128 H 136 H Lactic Acid Calcium Ionized Calcium Phosphorus Magnesium Total Bilirubin AST ALT Alkaline Phosphatase Ammonia Total Creatine Kinase CK-MB (CK-2) CK-MB (CK-2) Rel Index Total Protein Albumin Urine WBC (Auto) Vancomycin Trough Salicylates Acetaminophen Plasma/Serum Alcohol Crossmatch 12/07/19 12/07/19 12/07/19 03:44 03:44 05:53 WBC 16.2 H RBC 2.56 L Hgb 7.1 L Hct 22.3 L MCH RDW 19.4 H Plt Count 782 H Lymph % (Auto) [place] % (Auto) [place] # Baso # Seg Neutrophils % Seg Neuts % (Manual) Lymphocytes % (Manual) Monocytes % (Manual) Seg Neutrophils # Seg Neutrophils # Man Lymphocytes # (Manual) Monocytes # (Manual) Eosinophils # (Manual) Basophils # (Manual) PT INR APTT ABG pH ABG pO2 ABG HCO3 ABG O2 Saturation ABG Base Excess ABG Hemoglobin Oxyhemoglobin Sodium Potassium Chloride 95.6 L Carbon Dioxide BUN 56 H Creatinine 1.4 H Glucose 120 H POC Glucose 128 H Lactic Acid Calcium 10.3 H Ionized Calcium Phosphorus Magnesium Total Bilirubin AST ALT Alkaline Phosphatase Ammonia Total Creatine Kinase CK-MB (CK-2) CK-MB (CK-2) Rel Index Total Protein Albumin Urine WBC (Auto) Vancomycin Trough Salicylates Acetaminophen Plasma/Serum Alcohol Crossmatch 12/07/19 12/07/19 12/08/19 12:54 23:47 00:20 WBC RBC Hgb Hct MCH RDW Plt Count Lymph % (Auto) [place] % (Auto) [place] # Baso # Seg Neutrophils % Seg Neuts % (Manual) Lymphocytes % (Manual) Monocytes % (Manual) Seg Neutrophils # Seg Neutrophils # Man Lymphocytes # (Manual) Monocytes # (Manual) Eosinophils # (Manual) Basophils # (Manual) PT INR APTT ABG pH ABG pO2 ABG HCO3 ABG O2 Saturation ABG Base Excess ABG Hemoglobin Oxyhemoglobin Sodium Potassium Chloride Carbon Dioxide BUN Creatinine Glucose POC Glucose 128 H 130 H 124 H Lactic Acid Calcium Ionized Calcium Phosphorus Magnesium Total Bilirubin AST ALT Alkaline Phosphatase Ammonia Total Creatine Kinase CK-MB (CK-2) CK-MB (CK-2) Rel Index Total Protein Albumin Urine WBC (Auto) Vancomycin Trough Salicylates Acetaminophen Plasma/Serum Alcohol Crossmatch 12/08/19 12/08/19 12/08/19 06:38 12:04 18:26 WBC RBC Hgb Hct MCH RDW Plt Count Lymph % (Auto) [place] % (Auto) [place] # Baso # Seg Neutrophils % Seg Neuts % (Manual) Lymphocytes % (Manual) Monocytes % (Manual) Seg Neutrophils # Seg Neutrophils # Man Lymphocytes # (Manual) Monocytes # (Manual) Eosinophils # (Manual) Basophils # (Manual) PT INR APTT ABG pH ABG pO2 ABG HCO3 ABG O2 Saturation ABG Base Excess ABG Hemoglobin Oxyhemoglobin Sodium Potassium Chloride Carbon Dioxide BUN Creatinine Glucose POC Glucose 137 H 129 H 150 H Lactic Acid Calcium Ionized Calcium Phosphorus Magnesium Total Bilirubin AST ALT Alkaline Phosphatase Ammonia Total Creatine Kinase CK-MB (CK-2) CK-MB (CK-2) Rel Index Total Protein Albumin Urine WBC (Auto) Vancomycin Trough Salicylates Acetaminophen Plasma/Serum Alcohol Crossmatch 12/09/19 12/09/19 12/09/19 00:56 05:34 06:13 WBC RBC Hgb Hct MCH RDW Plt Count Lymph % (Auto) [place] % (Auto) [place] # Baso # Seg Neutrophils % Seg Neuts % (Manual) Lymphocytes % (Manual) Monocytes % (Manual) Seg Neutrophils # Seg Neutrophils # Man Lymphocytes # (Manual) Monocytes # (Manual) Eosinophils # (Manual) Basophils # (Manual) PT INR APTT ABG pH ABG pO2 ABG HCO3 ABG O2 Saturation ABG Base Excess ABG Hemoglobin Oxyhemoglobin Sodium 146 H Potassium Chloride Carbon Dioxide BUN 66 H Creatinine 1.9 H Glucose 116 H POC Glucose 130 H 130 H Lactic Acid Calcium Ionized Calcium Phosphorus Magnesium Total Bilirubin AST ALT Alkaline Phosphatase Ammonia Total Creatine Kinase CK-MB (CK-2) CK-MB (CK-2) Rel Index Total Protein Albumin Urine WBC (Auto) Vancomycin Trough Salicylates Acetaminophen Plasma/Serum Alcohol Crossmatch 12/09/19 12/09/19 12/10/19 11:52 17:50 00:14 WBC RBC Hgb Hct MCH RDW Plt Count Lymph % (Auto) [place] % (Auto) [place] # Baso # Seg Neutrophils % Seg Neuts % (Manual) Lymphocytes % (Manual) Monocytes % (Manual) Seg Neutrophils # Seg Neutrophils # Man Lymphocytes # (Manual) Monocytes # (Manual) Eosinophils # (Manual) Basophils # (Manual) PT INR APTT ABG pH ABG pO2 ABG HCO3 ABG O2 Saturation ABG Base Excess ABG Hemoglobin Oxyhemoglobin Sodium Potassium Chloride Carbon Dioxide BUN Creatinine Glucose POC Glucose 135 H 120 H 116 H Lactic Acid Calcium Ionized Calcium Phosphorus Magnesium Total Bilirubin AST ALT Alkaline Phosphatase Ammonia Total Creatine Kinase CK-MB (CK-2) CK-MB (CK-2) Rel Index Total Protein Albumin Urine WBC (Auto) Vancomycin Trough Salicylates Acetaminophen Plasma/Serum Alcohol Crossmatch 12/10/19 12/10/19 12/10/19 05:38 11:38 17:34 WBC RBC Hgb Hct MCH RDW Plt Count Lymph % (Auto) [place] % (Auto) [place] # Baso # Seg Neutrophils % Seg Neuts % (Manual) Lymphocytes % (Manual) Monocytes % (Manual) Seg Neutrophils # Seg Neutrophils # Man Lymphocytes # (Manual) Monocytes # (Manual) Eosinophils # (Manual) Basophils # (Manual) PT INR APTT ABG pH ABG pO2 ABG HCO3 ABG O2 Saturation ABG Base Excess ABG Hemoglobin Oxyhemoglobin Sodium Potassium Chloride Carbon Dioxide BUN Creatinine Glucose POC Glucose 115 H 112 H 130 H Lactic Acid Calcium Ionized Calcium Phosphorus Magnesium Total Bilirubin AST ALT Alkaline Phosphatase Ammonia Total Creatine Kinase CK-MB (CK-2) CK-MB (CK-2) Rel Index Total Protein Albumin Urine WBC (Auto) Vancomycin Trough Salicylates Acetaminophen Plasma/Serum Alcohol Crossmatch 12/11/19 12/11/19 12/11/19 00:20 05:31 12:22 WBC RBC Hgb Hct MCH RDW Plt Count Lymph % (Auto) [place] % (Auto) [place] # Baso # Seg Neutrophils % Seg Neuts % (Manual) Lymphocytes % (Manual) Monocytes % (Manual) Seg Neutrophils # Seg Neutrophils # Man Lymphocytes # (Manual) Monocytes # (Manual) Eosinophils # (Manual) Basophils # (Manual) PT INR APTT ABG pH ABG pO2 ABG HCO3 ABG O2 Saturation ABG Base Excess ABG Hemoglobin Oxyhemoglobin Sodium Potassium Chloride Carbon Dioxide BUN Creatinine Glucose POC Glucose 124 H 132 H 128 H Lactic Acid Calcium Ionized Calcium Phosphorus Magnesium Total Bilirubin AST ALT Alkaline Phosphatase Ammonia Total Creatine Kinase CK-MB (CK-2) CK-MB (CK-2) Rel Index Total Protein Albumin Urine WBC (Auto) Vancomycin Trough Salicylates Acetaminophen Plasma/Serum Alcohol Crossmatch 12/11/19 12/11/19 12/12/19 18:04 23:42 03:51 WBC RBC Hgb Hct MCH RDW Plt Count Lymph % (Auto) [place] % (Auto) [place] # Baso # Seg Neutrophils % Seg Neuts % (Manual) Lymphocytes % (Manual) Monocytes % (Manual) Seg Neutrophils # Seg Neutrophils # Man Lymphocytes # (Manual) Monocytes # (Manual) Eosinophils # (Manual) Basophils # (Manual) PT INR APTT ABG pH ABG pO2 ABG HCO3 ABG O2 Saturation ABG Base Excess ABG Hemoglobin Oxyhemoglobin Sodium 149 H Potassium Chloride Carbon Dioxide 20 L D BUN 77 H Creatinine 2.8 H Glucose POC Glucose 133 H 154 H Lactic Acid Calcium Ionized Calcium Phosphorus Magnesium Total Bilirubin AST ALT Alkaline Phosphatase Ammonia Total Creatine Kinase CK-MB (CK-2) CK-MB (CK-2) Rel Index Total Protein Albumin Urine WBC (Auto) Vancomycin Trough Salicylates Acetaminophen Plasma/Serum Alcohol Crossmatch 12/12/19 12/12/19 12/12/19 05:18 05:26 10:30 WBC 18.0 H RBC 2.51 L Hgb 6.8 L Hct 22.0 L MCH 27 L RDW 19.9 H Plt Count 582 H Lymph % (Auto) [place] % (Auto) [place] # Baso # Seg Neutrophils % Seg Neuts % (Manual) Lymphocytes % (Manual) Monocytes % (Manual) Seg Neutrophils # Seg Neutrophils # Man Lymphocytes # (Manual) Monocytes # (Manual) Eosinophils # (Manual) Basophils # (Manual) PT INR APTT ABG pH ABG pO2 ABG HCO3 ABG O2 Saturation ABG Base Excess ABG Hemoglobin Oxyhemoglobin Sodium Potassium Chloride Carbon Dioxide BUN Creatinine Glucose POC Glucose 135 H Lactic Acid Calcium Ionized Calcium Phosphorus Magnesium Total Bilirubin AST ALT Alkaline Phosphatase Ammonia Total Creatine Kinase CK-MB (CK-2) CK-MB (CK-2) Rel Index Total Protein Albumin Urine WBC (Auto) Vancomycin Trough Salicylates Acetaminophen Plasma/Serum Alcohol Crossmatch See Detail 12/12/19 12/12/19 12/12/19 11:44 18:10 23:21 WBC RBC Hgb Hct MCH RDW Plt Count Lymph % (Auto) [place] % (Auto) [place] # Baso # Seg Neutrophils % Seg Neuts % (Manual) Lymphocytes % (Manual) Monocytes % (Manual) Seg Neutrophils # Seg Neutrophils # Man Lymphocytes # (Manual) Monocytes # (Manual) Eosinophils # (Manual) Basophils # (Manual) PT INR APTT ABG pH ABG pO2 ABG HCO3 ABG O2 Saturation ABG Base Excess ABG Hemoglobin Oxyhemoglobin Sodium Potassium Chloride Carbon Dioxide BUN Creatinine Glucose POC Glucose 108 H 107 H 126 H Lactic Acid Calcium Ionized Calcium Phosphorus Magnesium Total Bilirubin AST ALT Alkaline Phosphatase Ammonia Total Creatine Kinase CK-MB (CK-2) CK-MB (CK-2) Rel Index Total Protein Albumin Urine WBC (Auto) Vancomycin Trough Salicylates Acetaminophen Plasma/Serum Alcohol Crossmatch 12/13/19 12/13/19 12/13/19 05:41 07:48 07:48 WBC 38.3 H RBC 2.37 L Hgb 6.3 L Hct 20.9 L MCH 27 L RDW 20.2 H Plt Count 546 H Lymph % (Auto) [place] % (Auto) [place] # Baso # Seg Neutrophils % Seg Neuts % (Manual) 93.0 H Lymphocytes % (Manual) 1.0 L Monocytes % (Manual) Seg Neutrophils # Seg Neutrophils # Man 35.6 H Lymphocytes # (Manual) 0.4 L Monocytes # (Manual) Eosinophils # (Manual) Basophils # (Manual) 0.4 H PT INR APTT ABG pH ABG pO2 ABG HCO3 ABG O2 Saturation ABG Base Excess ABG Hemoglobin Oxyhemoglobin Sodium 152 H Potassium 3.1 L D Chloride 111.9 H Carbon Dioxide 21 L BUN 53 H Creatinine 1.9 H Glucose 141 H POC Glucose 128 H Lactic Acid Calcium Ionized Calcium Phosphorus Magnesium Total Bilirubin AST ALT Alkaline Phosphatase 316 H Ammonia Total Creatine Kinase CK-MB (CK-2) CK-MB (CK-2) Rel Index Total Protein Albumin 2.4 L Urine WBC (Auto) Vancomycin Trough Salicylates Acetaminophen Plasma/Serum Alcohol Crossmatch 12/13/19 12/13/19 12/14/19 18:17 23:19 05:36 WBC RBC Hgb Hct MCH RDW Plt Count Lymph % (Auto) [place] % (Auto) [place] # Baso # Seg Neutrophils % Seg Neuts % (Manual) Lymphocytes % (Manual) Monocytes % (Manual) Seg Neutrophils # Seg Neutrophils # Man Lymphocytes # (Manual) Monocytes # (Manual) Eosinophils # (Manual) Basophils # (Manual) PT INR APTT ABG pH ABG pO2 ABG HCO3 ABG O2 Saturation ABG Base Excess ABG Hemoglobin Oxyhemoglobin Sodium Potassium Chloride Carbon Dioxide BUN Creatinine Glucose POC Glucose 141 H 158 H 182 H Lactic Acid Calcium Ionized Calcium Phosphorus Magnesium Total Bilirubin AST ALT Alkaline Phosphatase Ammonia Total Creatine Kinase CK-MB (CK-2) CK-MB (CK-2) Rel Index Total Protein Albumin Urine WBC (Auto) Vancomycin Trough Salicylates Acetaminophen Plasma/Serum Alcohol Crossmatch 12/14/19 12/14/19 12/14/19 08:48 08:48 10:31 WBC 33.3 H RBC 2.70 L Hgb 7.9 L 8.0 L Hct 25.3 L 24.0 L MCH RDW 19.2 H Plt Count 476 H Lymph % (Auto) [place] % (Auto) [place] # Baso # Seg Neutrophils % Seg Neuts % (Manual) Lymphocytes % (Manual) Monocytes % (Manual) Seg Neutrophils # Seg Neutrophils # Man Lymphocytes # (Manual) Monocytes # (Manual) Eosinophils # (Manual) Basophils # (Manual) PT INR APTT ABG pH ABG pO2 ABG HCO3 ABG O2 Saturation ABG Base Excess ABG Hemoglobin Oxyhemoglobin Sodium 153 H Potassium 2.5 L* Chloride 114.9 H Carbon Dioxide 20 L BUN 38 H Creatinine 1.4 H Glucose 177 H POC Glucose Lactic Acid Calcium Ionized Calcium Phosphorus Magnesium Total Bilirubin AST ALT Alkaline Phosphatase Ammonia Total Creatine Kinase CK-MB (CK-2) CK-MB (CK-2) Rel Index Total Protein Albumin Urine WBC (Auto) Vancomycin Trough Salicylates Acetaminophen Plasma/Serum Alcohol Crossmatch 12/14/19 12/14/19 12/14/19 12:57 16:15 17:50 WBC RBC Hgb Hct MCH RDW Plt Count Lymph % (Auto) [place] % (Auto) [place] # Baso # Seg Neutrophils % Seg Neuts % (Manual) Lymphocytes % (Manual) Monocytes % (Manual) Seg Neutrophils # Seg Neutrophils # Man Lymphocytes # (Manual) Monocytes # (Manual) Eosinophils # (Manual) Basophils # (Manual) PT INR APTT ABG pH ABG pO2 73.6 L ABG HCO3 ABG O2 Saturation ABG Base Excess ABG Hemoglobin 7.6 L Oxyhemoglobin 94.0 L Sodium Potassium Chloride Carbon Dioxide BUN Creatinine Glucose POC Glucose 174 H 150 H Lactic Acid Calcium Ionized Calcium Phosphorus Magnesium Total Bilirubin AST ALT Alkaline Phosphatase Ammonia Total Creatine Kinase CK-MB (CK-2) CK-MB (CK-2) Rel Index Total Protein Albumin Urine WBC (Auto) Vancomycin Trough Salicylates Acetaminophen Plasma/Serum Alcohol Crossmatch 12/15/19 12/15/19 12/15/19 00:28 05:27 07:23 WBC 30.0 H RBC 3.11 L Hgb 8.6 L Hct 27.7 L MCH RDW 20.0 H Plt Count 473 H Lymph % (Auto) [place] % (Auto) [place] # Baso # Seg Neutrophils % Seg Neuts % (Manual) Lymphocytes % (Manual) Monocytes % (Manual) Seg Neutrophils # Seg Neutrophils # Man Lymphocytes # (Manual) Monocytes # (Manual) Eosinophils # (Manual) Basophils # (Manual) PT INR APTT ABG pH ABG pO2 ABG HCO3 ABG O2 Saturation ABG Base Excess ABG Hemoglobin Oxyhemoglobin Sodium Potassium Chloride Carbon Dioxide BUN Creatinine Glucose POC Glucose 167 H 148 H Lactic Acid Calcium Ionized Calcium Phosphorus Magnesium Total Bilirubin AST ALT Alkaline Phosphatase Ammonia Total Creatine Kinase CK-MB (CK-2) CK-MB (CK-2) Rel Index Total Protein Albumin Urine WBC (Auto) Vancomycin Trough Salicylates Acetaminophen Plasma/Serum Alcohol Crossmatch 12/15/19 12/15/19 12/15/19 07:23 12:21 17:41 WBC RBC Hgb Hct MCH RDW Plt Count Lymph % (Auto) [place] % (Auto) [place] # Baso # Seg Neutrophils % Seg Neuts % (Manual) Lymphocytes % (Manual) Monocytes % (Manual) Seg Neutrophils # Seg Neutrophils # Man Lymphocytes # (Manual) Monocytes # (Manual) Eosinophils # (Manual) Basophils # (Manual) PT INR APTT ABG pH ABG pO2 ABG HCO3 ABG O2 Saturation ABG Base Excess ABG Hemoglobin Oxyhemoglobin Sodium 147 H Potassium 3.5 L D Chloride 111.2 H Carbon Dioxide 19 L BUN 29 H Creatinine Glucose 126 H POC Glucose 154 H 144 H Lactic Acid Calcium Ionized Calcium Phosphorus Magnesium Total Bilirubin AST ALT Alkaline Phosphatase Ammonia Total Creatine Kinase CK-MB (CK-2) CK-MB (CK-2) Rel Index Total Protein Albumin Urine WBC (Auto) Vancomycin Trough Salicylates Acetaminophen Plasma/Serum Alcohol Crossmatch 12/16/19 12/16/19 12/16/19 00:22 05:30 05:44 WBC 30.8 H RBC 2.58 L Hgb 7.1 L Hct 22.7 L MCH RDW 19.6 H Plt Count 451 H Lymph % (Auto) [place] % (Auto) [place] # Baso # Seg Neutrophils % Seg Neuts % (Manual) Lymphocytes % (Manual) Monocytes % (Manual) Seg Neutrophils # Seg Neutrophils # Man Lymphocytes # (Manual) Monocytes # (Manual) Eosinophils # (Manual) Basophils # (Manual) PT INR APTT ABG pH ABG pO2 ABG HCO3 ABG O2 Saturation ABG Base Excess ABG Hemoglobin Oxyhemoglobin Sodium Potassium Chloride Carbon Dioxide BUN Creatinine Glucose POC Glucose 139 H 126 H Lactic Acid Calcium Ionized Calcium Phosphorus Magnesium Total Bilirubin AST ALT Alkaline Phosphatase Ammonia Total Creatine Kinase CK-MB (CK-2) CK-MB (CK-2) Rel Index Total Protein Albumin Urine WBC (Auto) Vancomycin Trough Salicylates Acetaminophen Plasma/Serum Alcohol Crossmatch 12/16/19 12/16/19 12/16/19 05:44 11:48 17:37 WBC RBC Hgb Hct MCH RDW Plt Count Lymph % (Auto) [place] % (Auto) [place] # Baso # Seg Neutrophils % Seg Neuts % (Manual) Lymphocytes % (Manual) Monocytes % (Manual) Seg Neutrophils # Seg Neutrophils # Man Lymphocytes # (Manual) Monocytes # (Manual) Eosinophils # (Manual) Basophils # (Manual) PT INR APTT ABG pH ABG pO2 ABG HCO3 ABG O2 Saturation ABG Base Excess ABG Hemoglobin Oxyhemoglobin Sodium Potassium 3.4 L Chloride 109.2 H Carbon Dioxide 19 L BUN 27 H Creatinine Glucose 124 H POC Glucose 125 H 148 H Lactic Acid Calcium Ionized Calcium Phosphorus Magnesium Total Bilirubin AST ALT Alkaline Phosphatase Ammonia Total Creatine Kinase CK-MB (CK-2) CK-MB (CK-2) Rel Index Total Protein Albumin Urine WBC (Auto) Vancomycin Trough Salicylates Acetaminophen Plasma/Serum Alcohol Crossmatch 12/16/19 12/17/19 12/17/19 23:43 05:28 12:47 WBC RBC Hgb Hct MCH RDW Plt Count Lymph % (Auto) [place] % (Auto) [place] # Baso # Seg Neutrophils % Seg Neuts % (Manual) Lymphocytes % (Manual) Monocytes % (Manual) Seg Neutrophils # Seg Neutrophils # Man Lymphocytes # (Manual) Monocytes # (Manual) Eosinophils # (Manual) Basophils # (Manual) PT INR APTT ABG pH ABG pO2 ABG HCO3 ABG O2 Saturation ABG Base Excess ABG Hemoglobin Oxyhemoglobin Sodium Potassium Chloride Carbon Dioxide BUN Creatinine Glucose POC Glucose 142 H 140 H 125 H Lactic Acid Calcium Ionized Calcium Phosphorus Magnesium Total Bilirubin AST ALT Alkaline Phosphatase Ammonia Total Creatine Kinase CK-MB (CK-2) CK-MB (CK-2) Rel Index Total Protein Albumin Urine WBC (Auto) Vancomycin Trough Salicylates Acetaminophen Plasma/Serum Alcohol Crossmatch 12/17/19 12/17/19 12/17/19 17:05 18:00 Unknown WBC RBC Hgb Hct MCH RDW Plt Count Lymph % (Auto) [place] % (Auto) [place] # Baso # Seg Neutrophils % Seg Neuts % (Manual) Lymphocytes % (Manual) Monocytes % (Manual) Seg Neutrophils # Seg Neutrophils # Man Lymphocytes # (Manual) Monocytes # (Manual) Eosinophils # (Manual) Basophils # (Manual) PT INR APTT ABG pH ABG pO2 68.1 L ABG HCO3 ABG O2 Saturation 93.7 L ABG Base Excess ABG Hemoglobin 5.0 L Oxyhemoglobin 91.7 L Sodium Potassium Chloride Carbon Dioxide BUN Creatinine Glucose POC Glucose 140 H Lactic Acid Calcium Ionized Calcium Phosphorus Magnesium Total Bilirubin AST ALT Alkaline Phosphatase Ammonia Total Creatine Kinase CK-MB (CK-2) CK-MB (CK-2) Rel Index Total Protein Albumin Urine WBC (Auto) Vancomycin Trough Salicylates Acetaminophen Plasma/Serum Alcohol Crossmatch 12/18/19 12/18/19 12/18/19 00:16 04:53 04:53 WBC 28.6 H RBC 2.27 L Hgb 6.3 L Hct 19.5 L* MCH RDW 20.0 H Plt Count 497 H Lymph % (Auto) [place] % (Auto) [place] # Baso # Seg Neutrophils % Seg Neuts % (Manual) Lymphocytes % (Manual) Monocytes % (Manual) Seg Neutrophils # Seg Neutrophils # Man Lymphocytes # (Manual) Monocytes # (Manual) Eosinophils # (Manual) Basophils # (Manual) PT INR APTT ABG pH ABG pO2 ABG HCO3 ABG O2 Saturation ABG Base Excess ABG Hemoglobin Oxyhemoglobin Sodium Potassium Chloride 107.9 H Carbon Dioxide 20 L BUN 27 H Creatinine 0.6 L Glucose 116 H POC Glucose 123 H Lactic Acid Calcium Ionized Calcium Phosphorus Magnesium Total Bilirubin AST ALT Alkaline Phosphatase Ammonia Total Creatine Kinase CK-MB (CK-2) CK-MB (CK-2) Rel Index Total Protein Albumin Urine WBC (Auto) Vancomycin Trough Salicylates Acetaminophen Plasma/Serum Alcohol Crossmatch 12/18/19 12/18/19 12/18/19 06:38 11:22 12:08 WBC RBC Hgb Hct MCH RDW Plt Count Lymph % (Auto) [place] % (Auto) [place] # Baso # Seg Neutrophils % Seg Neuts % (Manual) Lymphocytes % (Manual) Monocytes % (Manual) Seg Neutrophils # Seg Neutrophils # Man Lymphocytes # (Manual) Monocytes # (Manual) Eosinophils # (Manual) Basophils # (Manual) PT INR APTT ABG pH ABG pO2 ABG HCO3 ABG O2 Saturation ABG Base Excess ABG Hemoglobin Oxyhemoglobin Sodium Potassium Chloride Carbon Dioxide BUN Creatinine Glucose POC Glucose 120 H 127 H Lactic Acid Calcium Ionized Calcium Phosphorus Magnesium Total Bilirubin AST ALT Alkaline Phosphatase Ammonia Total Creatine Kinase CK-MB (CK-2) CK-MB (CK-2) Rel Index Total Protein Albumin Urine WBC (Auto) Vancomycin Trough Salicylates Acetaminophen Plasma/Serum Alcohol Crossmatch See Detail 12/18/19 12/18/19 12/18/19 14:05 17:49 23:53 WBC RBC Hgb Hct MCH RDW Plt Count Lymph % (Auto) [place] % (Auto) [place] # Baso # Seg Neutrophils % Seg Neuts % (Manual) Lymphocytes % (Manual) Monocytes % (Manual) Seg Neutrophils # Seg Neutrophils # Man Lymphocytes # (Manual) Monocytes # (Manual) Eosinophils # (Manual) Basophils # (Manual) PT INR APTT ABG pH 7.267 L ABG pO2 69.8 L ABG HCO3 ABG O2 Saturation 88.4 L ABG Base Excess ABG Hemoglobin 7.1 L Oxyhemoglobin 86.4 L Sodium Potassium Chloride Carbon Dioxide BUN Creatinine Glucose POC Glucose 157 H 128 H Lactic Acid Calcium Ionized Calcium Phosphorus Magnesium Total Bilirubin AST ALT Alkaline Phosphatase Ammonia Total Creatine Kinase CK-MB (CK-2) CK-MB (CK-2) Rel Index Total Protein Albumin Urine WBC (Auto) Vancomycin Trough Salicylates Acetaminophen Plasma/Serum Alcohol Crossmatch 12/19/19 12/19/19 12/19/19 03:37 03:37 05:25 WBC 31.3 H RBC 2.60 L Hgb 7.6 L Hct 23.0 L MCH RDW 19.4 H Plt Count 530 H Lymph % (Auto) [place] % (Auto) [place] # Baso # Seg Neutrophils % Seg Neuts % (Manual) Lymphocytes % (Manual) Monocytes % (Manual) Seg Neutrophils # Seg Neutrophils # Man Lymphocytes # (Manual) Monocytes # (Manual) Eosinophils # (Manual) Basophils # (Manual) PT INR APTT ABG pH ABG pO2 ABG HCO3 ABG O2 Saturation ABG Base Excess ABG Hemoglobin Oxyhemoglobin Sodium Potassium Chloride Carbon Dioxide 18 L BUN 36 H Creatinine Glucose 111 H POC Glucose 123 H Lactic Acid Calcium Ionized Calcium Phosphorus Magnesium Total Bilirubin AST ALT Alkaline Phosphatase Ammonia Total Creatine Kinase CK-MB (CK-2) CK-MB (CK-2) Rel Index Total Protein Albumin Urine WBC (Auto) Vancomycin Trough Salicylates Acetaminophen Plasma/Serum Alcohol Crossmatch 12/19/19 12/19/19 12/20/19 12:59 18:33 00:00 WBC RBC Hgb Hct MCH RDW Plt Count Lymph % (Auto) [place] % (Auto) [place] # Baso # Seg Neutrophils % Seg Neuts % (Manual) Lymphocytes % (Manual) Monocytes % (Manual) Seg Neutrophils # Seg Neutrophils # Man Lymphocytes # (Manual) Monocytes # (Manual) Eosinophils # (Manual) Basophils # (Manual) PT INR APTT ABG pH ABG pO2 ABG HCO3 ABG O2 Saturation ABG Base Excess ABG Hemoglobin Oxyhemoglobin Sodium Potassium Chloride Carbon Dioxide BUN Creatinine Glucose POC Glucose 130 H 118 H 135 H Lactic Acid Calcium Ionized Calcium Phosphorus Magnesium Total Bilirubin AST ALT Alkaline Phosphatase Ammonia Total Creatine Kinase CK-MB (CK-2) CK-MB (CK-2) Rel Index Total Protein Albumin Urine WBC (Auto) Vancomycin Trough Salicylates Acetaminophen Plasma/Serum Alcohol Crossmatch 12/20/19 12/20/19 12/20/19 05:46 12:31 18:07 WBC RBC Hgb Hct MCH RDW Plt Count Lymph % (Auto) [place] % (Auto) [place] # Baso # Seg Neutrophils % Seg Neuts % (Manual) Lymphocytes % (Manual) Monocytes % (Manual) Seg Neutrophils # Seg Neutrophils # Man Lymphocytes # (Manual) Monocytes # (Manual) Eosinophils # (Manual) Basophils # (Manual) PT INR APTT ABG pH ABG pO2 ABG HCO3 ABG O2 Saturation ABG Base Excess ABG Hemoglobin Oxyhemoglobin Sodium Potassium Chloride Carbon Dioxide BUN Creatinine Glucose POC Glucose 131 H 128 H 134 H Lactic Acid Calcium Ionized Calcium Phosphorus Magnesium Total Bilirubin AST ALT Alkaline Phosphatase Ammonia Total Creatine Kinase CK-MB (CK-2) CK-MB (CK-2) Rel Index Total Protein Albumin Urine WBC (Auto) Vancomycin Trough Salicylates Acetaminophen Plasma/Serum Alcohol Crossmatch 12/21/19 12/21/19 12/21/19 03:28 03:28 07:21 WBC 29.4 H RBC 2.30 L Hgb 6.8 L Hct 20.2 L MCH RDW 20.2 H Plt Count 746 H Lymph % (Auto) [place] % (Auto) [place] # Baso # Seg Neutrophils % Seg Neuts % (Manual) 85.0 H Lymphocytes % (Manual) 8.0 L Monocytes % (Manual) Seg Neutrophils # Seg Neutrophils # Man 25.0 H Lymphocytes # (Manual) Monocytes # (Manual) 1.5 H Eosinophils # (Manual) 0.6 H Basophils # (Manual) PT INR APTT ABG pH ABG pO2 ABG HCO3 ABG O2 Saturation ABG Base Excess ABG Hemoglobin Oxyhemoglobin Sodium Potassium Chloride Carbon Dioxide 17 L BUN 57 H Creatinine 1.4 H D Glucose POC Glucose 124 H Lactic Acid Calcium Ionized Calcium Phosphorus Magnesium Total Bilirubin AST ALT Alkaline Phosphatase Ammonia Total Creatine Kinase CK-MB (CK-2) CK-MB (CK-2) Rel Index Total Protein Albumin Urine WBC (Auto) Vancomycin Trough Salicylates Acetaminophen Plasma/Serum Alcohol Crossmatch 12/21/19 12/21/19 12/21/19 08:56 12:06 14:53 WBC RBC Hgb 7.2 L Hct 22.9 L MCH RDW Plt Count Lymph % (Auto) [place] % (Auto) [place] # Baso # Seg Neutrophils % Seg Neuts % (Manual) Lymphocytes % (Manual) Monocytes % (Manual) Seg Neutrophils # Seg Neutrophils # Man Lymphocytes # (Manual) Monocytes # (Manual) Eosinophils # (Manual) Basophils # (Manual) PT INR APTT ABG pH ABG pO2 ABG HCO3 ABG O2 Saturation ABG Base Excess ABG Hemoglobin Oxyhemoglobin Sodium Potassium Chloride Carbon Dioxide BUN Creatinine Glucose POC Glucose 116 H Lactic Acid Calcium Ionized Calcium Phosphorus Magnesium Total Bilirubin AST ALT Alkaline Phosphatase Ammonia Total Creatine Kinase CK-MB (CK-2) CK-MB (CK-2) Rel Index Total Protein Albumin Urine WBC (Auto) Vancomycin Trough 33.8 H Salicylates Acetaminophen Plasma/Serum Alcohol Crossmatch 12/21/19 12/21/19 12/21/19 14:54 17:27 23:49 WBC RBC Hgb Hct MCH RDW Plt Count Lymph % (Auto) [place] % (Auto) [place] # Baso # Seg Neutrophils % Seg Neuts % (Manual) Lymphocytes % (Manual) Monocytes % (Manual) Seg Neutrophils # Seg Neutrophils # Man Lymphocytes # (Manual) Monocytes # (Manual) Eosinophils # (Manual) Basophils # (Manual) PT INR APTT ABG pH ABG pO2 ABG HCO3 ABG O2 Saturation ABG Base Excess ABG Hemoglobin Oxyhemoglobin Sodium Potassium Chloride Carbon Dioxide BUN Creatinine Glucose POC Glucose 145 H 127 H Lactic Acid Calcium Ionized Calcium Phosphorus Magnesium Total Bilirubin AST ALT Alkaline Phosphatase Ammonia Total Creatine Kinase CK-MB (CK-2) CK-MB (CK-2) Rel Index Total Protein Albumin Urine WBC (Auto) Vancomycin Trough Salicylates Acetaminophen Plasma/Serum Alcohol Crossmatch See Detail 12/22/19 12/22/19 12/22/19 04:43 05:56 08:40 WBC RBC Hgb Hct MCH RDW Plt Count Lymph % (Auto) [place] % (Auto) [place] # Baso # Seg Neutrophils % Seg Neuts % (Manual) Lymphocytes % (Manual) Monocytes % (Manual) Seg Neutrophils # Seg Neutrophils # Man Lymphocytes # (Manual) Monocytes # (Manual) Eosinophils # (Manual) Basophils # (Manual) PT INR APTT ABG pH ABG pO2 75.6 L ABG HCO3 ABG O2 Saturation ABG Base Excess -2.6 L ABG Hemoglobin 6.8 L Oxyhemoglobin 94.6 L Sodium Potassium Chloride Carbon Dioxide 17 L BUN 60 H Creatinine 1.4 H Glucose 126 H POC Glucose 153 H Lactic Acid Calcium Ionized Calcium Phosphorus Magnesium Total Bilirubin AST ALT Alkaline Phosphatase Ammonia Total Creatine Kinase CK-MB (CK-2) CK-MB (CK-2) Rel Index Total Protein Albumin Urine WBC (Auto) Vancomycin Trough Salicylates Acetaminophen Plasma/Serum Alcohol Crossmatch 12/22/19 12/22/19 12/23/19 12:07 17:49 04:30 WBC 22.4 H RBC 2.68 L Hgb 7.6 L Hct 22.9 L MCH RDW 19.9 H Plt Count 998 H Lymph % (Auto) [place] % (Auto) [place] # Baso # Seg Neutrophils % Seg Neuts % (Manual) 88.0 H Lymphocytes % (Manual) 2.0 L Monocytes % (Manual) 9.0 H Seg Neutrophils # Seg Neutrophils # Man 19.7 H Lymphocytes # (Manual) 0.4 L Monocytes # (Manual) 2.0 H Eosinophils # (Manual) Basophils # (Manual) PT INR APTT ABG pH ABG pO2 ABG HCO3 ABG O2 Saturation ABG Base Excess ABG Hemoglobin Oxyhemoglobin Sodium Potassium Chloride Carbon Dioxide BUN Creatinine Glucose POC Glucose 140 H 116 H Lactic Acid Calcium Ionized Calcium Phosphorus Magnesium Total Bilirubin AST ALT Alkaline Phosphatase Ammonia Total Creatine Kinase CK-MB (CK-2) CK-MB (CK-2) Rel Index Total Protein Albumin Urine WBC (Auto) Vancomycin Trough Salicylates Acetaminophen Plasma/Serum Alcohol Crossmatch 12/23/19 12/23/19 12/23/19 04:30 12:00 18:06 WBC RBC Hgb Hct MCH RDW Plt Count Lymph % (Auto) [place] % (Auto) [place] # Baso # Seg Neutrophils % Seg Neuts % (Manual) Lymphocytes % (Manual) Monocytes % (Manual) Seg Neutrophils # Seg Neutrophils # Man Lymphocytes # (Manual) Monocytes # (Manual) Eosinophils # (Manual) Basophils # (Manual) PT INR APTT ABG pH ABG pO2 ABG HCO3 ABG O2 Saturation ABG Base Excess ABG Hemoglobin Oxyhemoglobin Sodium Potassium 5.2 H Chloride Carbon Dioxide 21 L BUN 69 H Creatinine 1.5 H Glucose 117 H POC Glucose 128 H 138 H Lactic Acid Calcium Ionized Calcium Phosphorus Magnesium Total Bilirubin AST ALT Alkaline Phosphatase Ammonia Total Creatine Kinase CK-MB (CK-2) CK-MB (CK-2) Rel Index Total Protein Albumin Urine WBC (Auto) Vancomycin Trough Salicylates Acetaminophen Plasma/Serum Alcohol Crossmatch 12/23/19 12/24/19 12/24/19 23:46 04:31 05:08 WBC RBC Hgb Hct MCH RDW Plt Count Lymph % (Auto) [place] % (Auto) [place] # Baso # Seg Neutrophils % Seg Neuts % (Manual) Lymphocytes % (Manual) Monocytes % (Manual) Seg Neutrophils # Seg Neutrophils # Man Lymphocytes # (Manual) Monocytes # (Manual) Eosinophils # (Manual) Basophils # (Manual) PT INR APTT ABG pH ABG pO2 ABG HCO3 ABG O2 Saturation ABG Base Excess ABG Hemoglobin Oxyhemoglobin Sodium Potassium 5.3 H Chloride 107.6 H Carbon Dioxide 20 L BUN 72 H Creatinine 1.6 H Glucose 120 H POC Glucose 120 H 140 H Lactic Acid Calcium Ionized Calcium Phosphorus Magnesium Total Bilirubin AST ALT Alkaline Phosphatase Ammonia Total Creatine Kinase CK-MB (CK-2) CK-MB (CK-2) Rel Index Total Protein Albumin Urine WBC (Auto) Vancomycin Trough Salicylates Acetaminophen Plasma/Serum Alcohol Crossmatch 12/24/19 12/24/19 12/25/19 11:58 17:49 03:47 WBC 36.2 H RBC 2.92 L Hgb 8.4 L Hct 26.1 L MCH RDW 20.2 H Plt Count 942 H Lymph % (Auto) [place] % (Auto) [place] # Baso # Seg Neutrophils % Seg Neuts % (Manual) 97.5 H Lymphocytes % (Manual) 1.0 L Monocytes % (Manual) Seg Neutrophils # Seg Neutrophils # Man 35.3 H Lymphocytes # (Manual) 0.4 L Monocytes # (Manual) Eosinophils # (Manual) Basophils # (Manual) PT INR APTT ABG pH ABG pO2 ABG HCO3 ABG O2 Saturation ABG Base Excess ABG Hemoglobin Oxyhemoglobin Sodium Potassium Chloride Carbon Dioxide BUN Creatinine Glucose POC Glucose 146 H 131 H Lactic Acid Calcium Ionized Calcium Phosphorus Magnesium Total Bilirubin AST ALT Alkaline Phosphatase Ammonia Total Creatine Kinase CK-MB (CK-2) CK-MB (CK-2) Rel Index Total Protein Albumin Urine WBC (Auto) Vancomycin Trough Salicylates Acetaminophen Plasma/Serum Alcohol Crossmatch 12/25/19 12/25/19 12/25/19 03:47 05:30 12:23 WBC RBC Hgb Hct MCH RDW Plt Count Lymph % (Auto) [place] % (Auto) [place] # Baso # Seg Neutrophils % Seg Neuts % (Manual) Lymphocytes % (Manual) Monocytes % (Manual) Seg Neutrophils # Seg Neutrophils # Man Lymphocytes # (Manual) Monocytes # (Manual) Eosinophils # (Manual) Basophils # (Manual) PT INR APTT ABG pH ABG pO2 ABG HCO3 ABG O2 Saturation ABG Base Excess ABG Hemoglobin Oxyhemoglobin Sodium Potassium Chloride Carbon Dioxide 15 L BUN 70 H Creatinine 1.7 H Glucose 153 H POC Glucose 169 H 135 H Lactic Acid Calcium Ionized Calcium Phosphorus Magnesium Total Bilirubin AST ALT Alkaline Phosphatase Ammonia Total Creatine Kinase CK-MB (CK-2) CK-MB (CK-2) Rel Index Total Protein Albumin Urine WBC (Auto) Vancomycin Trough Salicylates Acetaminophen Plasma/Serum Alcohol Crossmatch 12/25/19 12/25/19 12/26/19 17:37 23:29 09:47 WBC 22.1 H RBC 2.83 L Hgb 7.9 L Hct 25.5 L MCH RDW 20.0 H Plt Count 894 H Lymph % (Auto) [place] % (Auto) [place] # Baso # Seg Neutrophils % Seg Neuts % (Manual) Lymphocytes % (Manual) Monocytes % (Manual) Seg Neutrophils # Seg Neutrophils # Man Lymphocytes # (Manual) Monocytes # (Manual) Eosinophils # (Manual) Basophils # (Manual) PT INR APTT ABG pH ABG pO2 ABG HCO3 ABG O2 Saturation ABG Base Excess ABG Hemoglobin Oxyhemoglobin Sodium Potassium Chloride Carbon Dioxide BUN Creatinine Glucose POC Glucose 120 H 140 H Lactic Acid Calcium Ionized Calcium Phosphorus Magnesium Total Bilirubin AST ALT Alkaline Phosphatase Ammonia Total Creatine Kinase CK-MB (CK-2) CK-MB (CK-2) Rel Index Total Protein Albumin Urine WBC (Auto) Vancomycin Trough Salicylates Acetaminophen Plasma/Serum Alcohol Crossmatch 12/26/19 12/26/19 12/26/19 09:47 11:46 17:52 WBC RBC Hgb Hct MCH RDW Plt Count Lymph % (Auto) [place] % (Auto) [place] # Baso # Seg Neutrophils % Seg Neuts % (Manual) Lymphocytes % (Manual) Monocytes % (Manual) Seg Neutrophils # Seg Neutrophils # Man Lymphocytes # (Manual) Monocytes # (Manual) Eosinophils # (Manual) Basophils # (Manual) PT INR APTT ABG pH ABG pO2 ABG HCO3 ABG O2 Saturation ABG Base Excess ABG Hemoglobin Oxyhemoglobin Sodium Potassium Chloride Carbon Dioxide 18 L BUN 65 H Creatinine 1.4 H Glucose 132 H POC Glucose 110 H 145 H Lactic Acid Calcium Ionized Calcium Phosphorus Magnesium Total Bilirubin AST ALT Alkaline Phosphatase Ammonia Total Creatine Kinase CK-MB (CK-2) CK-MB (CK-2) Rel Index Total Protein Albumin Urine WBC (Auto) Vancomycin Trough Salicylates Acetaminophen Plasma/Serum Alcohol Crossmatch 12/27/19 12/27/19 12/27/19 00:01 03:42 03:42 WBC 18.0 H RBC 2.86 L Hgb 8.0 L Hct 25.2 L MCH RDW 19.2 H Plt Count 873 H Lymph % (Auto) 8.4 L [place] % (Auto) 7.5 H [place] # 1.4 H Baso # 0.2 H Seg Neutrophils % 82.2 H Seg Neuts % (Manual) Lymphocytes % (Manual) Monocytes % (Manual) Seg Neutrophils # 14.8 H Seg Neutrophils # Man Lymphocytes # (Manual) Monocytes # (Manual) Eosinophils # (Manual) Basophils # (Manual) PT INR APTT ABG pH ABG pO2 ABG HCO3 ABG O2 Saturation ABG Base Excess ABG Hemoglobin Oxyhemoglobin Sodium Potassium Chloride Carbon Dioxide BUN 73 H Creatinine 1.4 H Glucose 119 H POC Glucose 124 H Lactic Acid Calcium Ionized Calcium Phosphorus Magnesium Total Bilirubin AST ALT Alkaline Phosphatase Ammonia Total Creatine Kinase CK-MB (CK-2) CK-MB (CK-2) Rel Index Total Protein Albumin Urine WBC (Auto) Vancomycin Trough Salicylates Acetaminophen Plasma/Serum Alcohol Crossmatch 12/27/19 12/27/19 12/27/19 05:45 11:45 17:29 WBC RBC Hgb Hct MCH RDW Plt Count Lymph % (Auto) [place] % (Auto) [place] # Baso # Seg Neutrophils % Seg Neuts % (Manual) Lymphocytes % (Manual) Monocytes % (Manual) Seg Neutrophils # Seg Neutrophils # Man Lymphocytes # (Manual) Monocytes # (Manual) Eosinophils # (Manual) Basophils # (Manual) PT INR APTT ABG pH ABG pO2 ABG HCO3 ABG O2 Saturation ABG Base Excess ABG Hemoglobin Oxyhemoglobin Sodium Potassium Chloride Carbon Dioxide BUN Creatinine Glucose POC Glucose 131 H 123 H 134 H Lactic Acid Calcium Ionized Calcium Phosphorus Magnesium Total Bilirubin AST ALT Alkaline Phosphatase Ammonia Total Creatine Kinase CK-MB (CK-2) CK-MB (CK-2) Rel Index Total Protein Albumin Urine WBC (Auto) Vancomycin Trough Salicylates Acetaminophen Plasma/Serum Alcohol Crossmatch 12/28/19 12/28/19 12/28/19 00:12 05:14 11:53 WBC RBC Hgb Hct MCH RDW Plt Count Lymph % (Auto) [place] % (Auto) [place] # Baso # Seg Neutrophils % Seg Neuts % (Manual) Lymphocytes % (Manual) Monocytes % (Manual) Seg Neutrophils # Seg Neutrophils # Man Lymphocytes # (Manual) Monocytes # (Manual) Eosinophils # (Manual) Basophils # (Manual) PT INR APTT ABG pH ABG pO2 ABG HCO3 ABG O2 Saturation ABG Base Excess ABG Hemoglobin Oxyhemoglobin Sodium Potassium Chloride Carbon Dioxide BUN Creatinine Glucose POC Glucose 138 H 130 H 146 H Lactic Acid Calcium Ionized Calcium Phosphorus Magnesium Total Bilirubin AST ALT Alkaline Phosphatase Ammonia Total Creatine Kinase CK-MB (CK-2) CK-MB (CK-2) Rel Index Total Protein Albumin Urine WBC (Auto) Vancomycin Trough Salicylates Acetaminophen Plasma/Serum Alcohol Crossmatch 12/28/19 12/29/19 12/29/19 17:39 00:01 18:11 WBC RBC Hgb Hct MCH RDW Plt Count Lymph % (Auto) [place] % (Auto) [place] # Baso # Seg Neutrophils % Seg Neuts % (Manual) Lymphocytes % (Manual) Monocytes % (Manual) Seg Neutrophils # Seg Neutrophils # Man Lymphocytes # (Manual) Monocytes # (Manual) Eosinophils # (Manual) Basophils # (Manual) PT INR APTT ABG pH ABG pO2 ABG HCO3 ABG O2 Saturation ABG Base Excess ABG Hemoglobin Oxyhemoglobin Sodium Potassium Chloride Carbon Dioxide BUN Creatinine Glucose POC Glucose 117 H 139 H 130 H Lactic Acid Calcium Ionized Calcium Phosphorus Magnesium Total Bilirubin AST ALT Alkaline Phosphatase Ammonia Total Creatine Kinase CK-MB (CK-2) CK-MB (CK-2) Rel Index Total Protein Albumin Urine WBC (Auto) Vancomycin Trough Salicylates Acetaminophen Plasma/Serum Alcohol Crossmatch 12/29/19 12/30/19 12/30/19 23:09 00:02 01:06 WBC 16.7 H RBC 2.91 L Hgb 8.2 L Hct 25.4 L MCH RDW 18.7 H Plt Count 708 H Lymph % (Auto) 9.4 L [place] % (Auto) [place] # 0.9 H Baso # Seg Neutrophils % 83.5 H Seg Neuts % (Manual) Lymphocytes % (Manual) Monocytes % (Manual) Seg Neutrophils # 14.0 H Seg Neutrophils # Man Lymphocytes # (Manual) Monocytes # (Manual) Eosinophils # (Manual) Basophils # (Manual) PT INR APTT ABG pH ABG pO2 ABG HCO3 ABG O2 Saturation ABG Base Excess ABG Hemoglobin Oxyhemoglobin Sodium Potassium Chloride Carbon Dioxide BUN Creatinine Glucose POC Glucose 120 H 114 H Lactic Acid Calcium Ionized Calcium Phosphorus Magnesium Total Bilirubin AST ALT Alkaline Phosphatase Ammonia Total Creatine Kinase CK-MB (CK-2) CK-MB (CK-2) Rel Index Total Protein Albumin Urine WBC (Auto) Vancomycin Trough Salicylates Acetaminophen Plasma/Serum Alcohol Crossmatch 12/30/19 12/30/19 12/30/19 01:06 04:23 05:18 WBC RBC Hgb Hct MCH RDW Plt Count Lymph % (Auto) [place] % (Auto) [place] # Baso # Seg Neutrophils % Seg Neuts % (Manual) Lymphocytes % (Manual) Monocytes % (Manual) Seg Neutrophils # Seg Neutrophils # Man Lymphocytes # (Manual) Monocytes # (Manual) Eosinophils # (Manual) Basophils # (Manual) PT INR APTT ABG pH ABG pO2 ABG HCO3 ABG O2 Saturation ABG Base Excess ABG Hemoglobin 8.3 L Oxyhemoglobin Sodium Potassium Chloride Carbon Dioxide BUN 70 H Creatinine Glucose 122 H POC Glucose 130 H Lactic Acid Calcium Ionized Calcium Phosphorus Magnesium Total Bilirubin AST ALT Alkaline Phosphatase Ammonia Total Creatine Kinase CK-MB (CK-2) CK-MB (CK-2) Rel Index Total Protein Albumin Urine WBC (Auto) Vancomycin Trough Salicylates Acetaminophen Plasma/Serum Alcohol Crossmatch 12/30/19 12/30/19 12/30/19 05:40 12:17 17:43 WBC RBC Hgb Hct MCH RDW Plt Count Lymph % (Auto) [place] % (Auto) [place] # Baso # Seg Neutrophils % Seg Neuts % (Manual) Lymphocytes % (Manual) Monocytes % (Manual) Seg Neutrophils # Seg Neutrophils # Man Lymphocytes # (Manual) Monocytes # (Manual) Eosinophils # (Manual) Basophils # (Manual) PT INR APTT ABG pH ABG pO2 ABG HCO3 ABG O2 Saturation ABG Base Excess ABG Hemoglobin Oxyhemoglobin Sodium Potassium Chloride Carbon Dioxide BUN Creatinine Glucose POC Glucose 135 H 132 H 118 H Lactic Acid Calcium Ionized Calcium Phosphorus Magnesium Total Bilirubin AST ALT Alkaline Phosphatase Ammonia Total Creatine Kinase CK-MB (CK-2) CK-MB (CK-2) Rel Index Total Protein Albumin Urine WBC (Auto) Vancomycin Trough Salicylates Acetaminophen Plasma/Serum Alcohol Crossmatch 12/30/19 12/31/19 12/31/19 23:29 05:19 17:50 WBC RBC Hgb Hct MCH RDW Plt Count Lymph % (Auto) [place] % (Auto) [place] # Baso # Seg Neutrophils % Seg Neuts % (Manual) Lymphocytes % (Manual) Monocytes % (Manual) Seg Neutrophils # Seg Neutrophils # Man Lymphocytes # (Manual) Monocytes # (Manual) Eosinophils # (Manual) Basophils # (Manual) PT INR APTT ABG pH ABG pO2 ABG HCO3 ABG O2 Saturation ABG Base Excess ABG Hemoglobin Oxyhemoglobin Sodium Potassium Chloride Carbon Dioxide BUN Creatinine Glucose POC Glucose 114 H 109 H 116 H Lactic Acid Calcium Ionized Calcium Phosphorus Magnesium Total Bilirubin AST ALT Alkaline Phosphatase Ammonia Total Creatine Kinase CK-MB (CK-2) CK-MB (CK-2) Rel Index Total Protein Albumin Urine WBC (Auto) Vancomycin Trough Salicylates Acetaminophen Plasma/Serum Alcohol Crossmatch 01/01/20 01/01/20 01/01/20 00:10 05:19 12:02 WBC RBC Hgb Hct MCH RDW Plt Count Lymph % (Auto) [place] % (Auto) [place] # Baso # Seg Neutrophils % Seg Neuts % (Manual) Lymphocytes % (Manual) Monocytes % (Manual) Seg Neutrophils # Seg Neutrophils # Man Lymphocytes # (Manual) Monocytes # (Manual) Eosinophils # (Manual) Basophils # (Manual) PT INR APTT ABG pH ABG pO2 ABG HCO3 ABG O2 Saturation ABG Base Excess ABG Hemoglobin Oxyhemoglobin Sodium Potassium Chloride Carbon Dioxide BUN Creatinine Glucose POC Glucose 131 H 122 H 136 H Lactic Acid Calcium Ionized Calcium Phosphorus Magnesium Total Bilirubin AST ALT Alkaline Phosphatase Ammonia Total Creatine Kinase CK-MB (CK-2) CK-MB (CK-2) Rel Index Total Protein Albumin Urine WBC (Auto) Vancomycin Trough Salicylates Acetaminophen Plasma/Serum Alcohol Crossmatch 01/02/20 01/02/20 01/02/20 00:24 05:36 11:41 WBC RBC Hgb Hct MCH RDW Plt Count Lymph % (Auto) [place] % (Auto) [place] # Baso # Seg Neutrophils % Seg Neuts % (Manual) Lymphocytes % (Manual) Monocytes % (Manual) Seg Neutrophils # Seg Neutrophils # Man Lymphocytes # (Manual) Monocytes # (Manual) Eosinophils # (Manual) Basophils # (Manual) PT INR APTT ABG pH ABG pO2 ABG HCO3 ABG O2 Saturation ABG Base Excess ABG Hemoglobin Oxyhemoglobin Sodium Potassium Chloride Carbon Dioxide BUN Creatinine Glucose POC Glucose 119 H 109 H 125 H Lactic Acid Calcium Ionized Calcium Phosphorus Magnesium Total Bilirubin AST ALT Alkaline Phosphatase Ammonia Total Creatine Kinase CK-MB (CK-2) CK-MB (CK-2) Rel Index Total Protein Albumin Urine WBC (Auto) Vancomycin Trough Salicylates Acetaminophen Plasma/Serum Alcohol Crossmatch 01/02/20 01/03/20 01/03/20 17:49 05:29 12:13 WBC RBC Hgb Hct MCH RDW Plt Count Lymph % (Auto) [place] % (Auto) [place] # Baso # Seg Neutrophils % Seg Neuts % (Manual) Lymphocytes % (Manual) Monocytes % (Manual) Seg Neutrophils # Seg Neutrophils # Man Lymphocytes # (Manual) Monocytes # (Manual) Eosinophils # (Manual) Basophils # (Manual) PT INR APTT ABG pH ABG pO2 ABG HCO3 ABG O2 Saturation ABG Base Excess ABG Hemoglobin Oxyhemoglobin Sodium Potassium Chloride Carbon Dioxide BUN Creatinine Glucose POC Glucose 130 H 132 H 113 H Lactic Acid Calcium Ionized Calcium Phosphorus Magnesium Total Bilirubin AST ALT Alkaline Phosphatase Ammonia Total Creatine Kinase CK-MB (CK-2) CK-MB (CK-2) Rel Index Total Protein Albumin Urine WBC (Auto) Vancomycin Trough Salicylates Acetaminophen Plasma/Serum Alcohol Crossmatch 01/03/20 01/04/20 01/04/20 17:32 00:19 05:26 WBC RBC Hgb Hct MCH RDW Plt Count Lymph % (Auto) [place] % (Auto) [place] # Baso # Seg Neutrophils % Seg Neuts % (Manual) Lymphocytes % (Manual) Monocytes % (Manual) Seg Neutrophils # Seg Neutrophils # Man Lymphocytes # (Manual) Monocytes # (Manual) Eosinophils # (Manual) Basophils # (Manual) PT INR APTT ABG pH ABG pO2 ABG HCO3 ABG O2 Saturation ABG Base Excess ABG Hemoglobin Oxyhemoglobin Sodium Potassium Chloride Carbon Dioxide BUN Creatinine Glucose POC Glucose 127 H 141 H 129 H Lactic Acid Calcium Ionized Calcium Phosphorus Magnesium Total Bilirubin AST ALT Alkaline Phosphatase Ammonia Total Creatine Kinase CK-MB (CK-2) CK-MB (CK-2) Rel Index Total Protein Albumin Urine WBC (Auto) Vancomycin Trough Salicylates Acetaminophen Plasma/Serum Alcohol Crossmatch 01/04/20 01/04/20 01/05/20 11:39 17:29 05:22 WBC RBC Hgb Hct MCH RDW Plt Count Lymph % (Auto) [place] % (Auto) [place] # Baso # Seg Neutrophils % Seg Neuts % (Manual) Lymphocytes % (Manual) Monocytes % (Manual) Seg Neutrophils # Seg Neutrophils # Man Lymphocytes # (Manual) Monocytes # (Manual) Eosinophils # (Manual) Basophils # (Manual) PT INR APTT ABG pH ABG pO2 ABG HCO3 ABG O2 Saturation ABG Base Excess ABG Hemoglobin Oxyhemoglobin Sodium Potassium Chloride Carbon Dioxide BUN Creatinine Glucose POC Glucose 167 H 132 H 121 H Lactic Acid Calcium Ionized Calcium Phosphorus Magnesium Total Bilirubin AST ALT Alkaline Phosphatase Ammonia Total Creatine Kinase CK-MB (CK-2) CK-MB (CK-2) Rel Index Total Protein Albumin Urine WBC (Auto) Vancomycin Trough Salicylates Acetaminophen Plasma/Serum Alcohol Crossmatch 01/05/20 01/05/20 01/05/20 12:25 17:40 18:06 WBC RBC Hgb Hct MCH RDW Plt Count Lymph % (Auto) [place] % (Auto) [place] # Baso # Seg Neutrophils % Seg Neuts % (Manual) Lymphocytes % (Manual) Monocytes % (Manual) Seg Neutrophils # Seg Neutrophils # Man Lymphocytes # (Manual) Monocytes # (Manual) Eosinophils # (Manual) Basophils # (Manual) PT INR APTT ABG pH 7.472 H ABG pO2 99.2 H ABG HCO3 ABG O2 Saturation ABG Base Excess ABG Hemoglobin 7.8 L Oxyhemoglobin Sodium Potassium Chloride Carbon Dioxide BUN Creatinine Glucose POC Glucose 106 H 110 H Lactic Acid Calcium Ionized Calcium Phosphorus Magnesium Total Bilirubin AST ALT Alkaline Phosphatase Ammonia Total Creatine Kinase CK-MB (CK-2) CK-MB (CK-2) Rel Index Total Protein Albumin Urine WBC (Auto) Vancomycin Trough Salicylates Acetaminophen Plasma/Serum Alcohol Crossmatch 01/06/20 01/06/20 01/06/20 00:11 05:16 11:30 WBC RBC Hgb Hct MCH RDW Plt Count Lymph % (Auto) [place] % (Auto) [place] # Baso # Seg Neutrophils % Seg Neuts % (Manual) Lymphocytes % (Manual) Monocytes % (Manual) Seg Neutrophils # Seg Neutrophils # Man Lymphocytes # (Manual) Monocytes # (Manual) Eosinophils # (Manual) Basophils # (Manual) PT INR APTT ABG pH ABG pO2 ABG HCO3 ABG O2 Saturation ABG Base Excess ABG Hemoglobin Oxyhemoglobin Sodium Potassium Chloride Carbon Dioxide BUN Creatinine Glucose POC Glucose 108 H 124 H 125 H Lactic Acid Calcium Ionized Calcium Phosphorus Magnesium Total Bilirubin AST ALT Alkaline Phosphatase Ammonia Total Creatine Kinase CK-MB (CK-2) CK-MB (CK-2) Rel Index Total Protein Albumin Urine WBC (Auto) Vancomycin Trough Salicylates Acetaminophen Plasma/Serum Alcohol Crossmatch 01/06/20 01/06/20 01/07/20 17:53 23:51 04:12 WBC 16.5 H RBC 3.29 L Hgb 9.3 L Hct 28.1 L MCH RDW 18.2 H Plt Count 526 H Lymph % (Auto) 8.4 L [place] % (Auto) [place] # 1.0 H Baso # Seg Neutrophils % 84.4 H Seg Neuts % (Manual) Lymphocytes % (Manual) Monocytes % (Manual) Seg Neutrophils # 13.9 H Seg Neutrophils # Man Lymphocytes # (Manual) Monocytes # (Manual) Eosinophils # (Manual) Basophils # (Manual) PT INR APTT ABG pH ABG pO2 ABG HCO3 ABG O2 Saturation ABG Base Excess ABG Hemoglobin Oxyhemoglobin Sodium Potassium Chloride Carbon Dioxide BUN Creatinine Glucose POC Glucose 166 H 128 H Lactic Acid Calcium Ionized Calcium Phosphorus Magnesium Total Bilirubin AST ALT Alkaline Phosphatase Ammonia Total Creatine Kinase CK-MB (CK-2) CK-MB (CK-2) Rel Index Total Protein Albumin Urine WBC (Auto) Vancomycin Trough Salicylates Acetaminophen Plasma/Serum Alcohol Crossmatch 01/07/20 01/07/20 01/07/20 04:12 04:45 11:51 WBC RBC Hgb Hct MCH RDW Plt Count Lymph % (Auto) [place] % (Auto) [place] # Baso # Seg Neutrophils % Seg Neuts % (Manual) Lymphocytes % (Manual) Monocytes % (Manual) Seg Neutrophils # Seg Neutrophils # Man Lymphocytes # (Manual) Monocytes # (Manual) Eosinophils # (Manual) Basophils # (Manual) PT INR APTT ABG pH ABG pO2 ABG HCO3 ABG O2 Saturation ABG Base Excess ABG Hemoglobin Oxyhemoglobin Sodium 136 L Potassium Chloride Carbon Dioxide 21 L BUN 44 H Creatinine 0.6 L Glucose 124 H POC Glucose 134 H 138 H Lactic Acid Calcium Ionized Calcium Phosphorus Magnesium Total Bilirubin AST ALT Alkaline Phosphatase Ammonia Total Creatine Kinase CK-MB (CK-2) CK-MB (CK-2) Rel Index Total Protein Albumin Urine WBC (Auto) Vancomycin Trough Salicylates Acetaminophen Plasma/Serum Alcohol Crossmatch 01/07/20 01/08/20 01/08/20 17:36 00:33 05:29 WBC RBC Hgb Hct MCH RDW Plt Count Lymph % (Auto) [place] % (Auto) [place] # Baso # Seg Neutrophils % Seg Neuts % (Manual) Lymphocytes % (Manual) Monocytes % (Manual) Seg Neutrophils # Seg Neutrophils # Man Lymphocytes # (Manual) Monocytes # (Manual) Eosinophils # (Manual) Basophils # (Manual) PT INR APTT ABG pH ABG pO2 ABG HCO3 ABG O2 Saturation ABG Base Excess ABG Hemoglobin Oxyhemoglobin Sodium Potassium Chloride Carbon Dioxide BUN Creatinine Glucose POC Glucose 128 H 119 H 124 H Lactic Acid Calcium Ionized Calcium Phosphorus Magnesium Total Bilirubin AST ALT Alkaline Phosphatase Ammonia Total Creatine Kinase CK-MB (CK-2) CK-MB (CK-2) Rel Index Total Protein Albumin Urine WBC (Auto) Vancomycin Trough Salicylates Acetaminophen Plasma/Serum Alcohol Crossmatch 01/08/20 01/08/20 01/08/20 12:51 20:25 23:22 WBC RBC Hgb Hct MCH RDW Plt Count Lymph % (Auto) [place] % (Auto) [place] # Baso # Seg Neutrophils % Seg Neuts % (Manual) Lymphocytes % (Manual) Monocytes % (Manual) Seg Neutrophils # Seg Neutrophils # Man Lymphocytes # (Manual) Monocytes # (Manual) Eosinophils # (Manual) Basophils # (Manual) PT INR APTT ABG pH ABG pO2 132.2 H ABG HCO3 ABG O2 Saturation ABG Base Excess ABG Hemoglobin Oxyhemoglobin Sodium Potassium Chloride Carbon Dioxide BUN Creatinine Glucose POC Glucose 128 H 127 H Lactic Acid Calcium Ionized Calcium Phosphorus Magnesium Total Bilirubin AST ALT Alkaline Phosphatase Ammonia Total Creatine Kinase CK-MB (CK-2) CK-MB (CK-2) Rel Index Total Protein Albumin Urine WBC (Auto) Vancomycin Trough Salicylates Acetaminophen Plasma/Serum Alcohol Crossmatch 01/09/20 01/09/20 01/09/20 05:48 08:51 11:29 WBC RBC Hgb Hct MCH RDW Plt Count Lymph % (Auto) [place] % (Auto) [place] # Baso # Seg Neutrophils % Seg Neuts % (Manual) Lymphocytes % (Manual) Monocytes % (Manual) Seg Neutrophils # Seg Neutrophils # Man Lymphocytes # (Manual) Monocytes # (Manual) Eosinophils # (Manual) Basophils # (Manual) PT INR APTT ABG pH ABG pO2 94.3 H ABG HCO3 ABG O2 Saturation ABG Base Excess ABG Hemoglobin 9.5 L Oxyhemoglobin Sodium Potassium Chloride Carbon Dioxide BUN Creatinine Glucose POC Glucose 120 H 112 H Lactic Acid Calcium Ionized Calcium Phosphorus Magnesium Total Bilirubin AST ALT Alkaline Phosphatase Ammonia Total Creatine Kinase CK-MB (CK-2) CK-MB (CK-2) Rel Index Total Protein Albumin Urine WBC (Auto) Vancomycin Trough Salicylates Acetaminophen Plasma/Serum Alcohol Crossmatch 01/09/20 01/10/20 01/10/20 17:57 05:17 12:28 WBC RBC Hgb Hct MCH RDW Plt Count Lymph % (Auto) [place] % (Auto) [place] # Baso # Seg Neutrophils % Seg Neuts % (Manual) Lymphocytes % (Manual) Monocytes % (Manual) Seg Neutrophils # Seg Neutrophils # Man Lymphocytes # (Manual) Monocytes # (Manual) Eosinophils # (Manual) Basophils # (Manual) PT INR APTT ABG pH ABG pO2 ABG HCO3 ABG O2 Saturation ABG Base Excess ABG Hemoglobin Oxyhemoglobin Sodium Potassium Chloride Carbon Dioxide BUN Creatinine Glucose POC Glucose 122 H 115 H 116 H Lactic Acid Calcium Ionized Calcium Phosphorus Magnesium Total Bilirubin AST ALT Alkaline Phosphatase Ammonia Total Creatine Kinase CK-MB (CK-2) CK-MB (CK-2) Rel Index Total Protein Albumin Urine WBC (Auto) Vancomycin Trough Salicylates Acetaminophen Plasma/Serum Alcohol Crossmatch 01/10/20 01/10/20 01/11/20 18:25 23:47 06:05 WBC RBC Hgb Hct MCH RDW Plt Count Lymph % (Auto) [place] % (Auto) [place] # Baso # Seg Neutrophils % Seg Neuts % (Manual) Lymphocytes % (Manual) Monocytes % (Manual) Seg Neutrophils # Seg Neutrophils # Man Lymphocytes # (Manual) Monocytes # (Manual) Eosinophils # (Manual) Basophils # (Manual) PT INR APTT ABG pH ABG pO2 ABG HCO3 ABG O2 Saturation ABG Base Excess ABG Hemoglobin Oxyhemoglobin Sodium Potassium Chloride Carbon Dioxide BUN Creatinine Glucose POC Glucose 123 H 115 H 151 H Lactic Acid Calcium Ionized Calcium Phosphorus Magnesium Total Bilirubin AST ALT Alkaline Phosphatase Ammonia Total Creatine Kinase CK-MB (CK-2) CK-MB (CK-2) Rel Index Total Protein Albumin Urine WBC (Auto) Vancomycin Trough Salicylates Acetaminophen Plasma/Serum Alcohol Crossmatch 01/11/20 01/11/20 01/11/20 07:00 07:00 12:27 WBC 11.8 H RBC 3.40 L Hgb 9.4 L Hct 29.3 L MCH RDW 18.1 H Plt Count 549 H Lymph % (Auto) [place] % (Auto) 9.1 H [place] # 1.1 H Baso # Seg Neutrophils % 73.3 H Seg Neuts % (Manual) Lymphocytes % (Manual) Monocytes % (Manual) Seg Neutrophils # 8.7 H Seg Neutrophils # Man Lymphocytes # (Manual) Monocytes # (Manual) Eosinophils # (Manual) Basophils # (Manual) PT INR APTT ABG pH ABG pO2 ABG HCO3 ABG O2 Saturation ABG Base Excess ABG Hemoglobin Oxyhemoglobin Sodium 134 L Potassium Chloride 97.7 L Carbon Dioxide 21 L BUN 38 H Creatinine 0.5 L Glucose 168 H POC Glucose 117 H Lactic Acid Calcium 10.5 H Ionized Calcium Phosphorus Magnesium Total Bilirubin AST ALT Alkaline Phosphatase Ammonia Total Creatine Kinase CK-MB (CK-2) CK-MB (CK-2) Rel Index Total Protein Albumin Urine WBC (Auto) Vancomycin Trough Salicylates Acetaminophen Plasma/Serum Alcohol Crossmatch 01/11/20 01/12/20 01/12/20 18:19 00:53 05:24 WBC RBC Hgb Hct MCH RDW Plt Count Lymph % (Auto) [place] % (Auto) [place] # Baso # Seg Neutrophils % Seg Neuts % (Manual) Lymphocytes % (Manual) Monocytes % (Manual) Seg Neutrophils # Seg Neutrophils # Man Lymphocytes # (Manual) Monocytes # (Manual) Eosinophils # (Manual) Basophils # (Manual) PT INR APTT ABG pH ABG pO2 ABG HCO3 ABG O2 Saturation ABG Base Excess ABG Hemoglobin Oxyhemoglobin Sodium Potassium Chloride Carbon Dioxide BUN Creatinine Glucose POC Glucose 126 H 126 H 128 H Lactic Acid Calcium Ionized Calcium Phosphorus Magnesium Total Bilirubin AST ALT Alkaline Phosphatase Ammonia Total Creatine Kinase CK-MB (CK-2) CK-MB (CK-2) Rel Index Total Protein Albumin Urine WBC (Auto) Vancomycin Trough Salicylates Acetaminophen Plasma/Serum Alcohol Crossmatch 01/12/20 01/12/20 01/13/20 13:39 18:02 00:27 WBC RBC Hgb Hct MCH RDW Plt Count Lymph % (Auto) [place] % (Auto) [place] # Baso # Seg Neutrophils % Seg Neuts % (Manual) Lymphocytes % (Manual) Monocytes % (Manual) Seg Neutrophils # Seg Neutrophils # Man Lymphocytes # (Manual) Monocytes # (Manual) Eosinophils # (Manual) Basophils # (Manual) PT INR APTT ABG pH ABG pO2 ABG HCO3 ABG O2 Saturation ABG Base Excess ABG Hemoglobin Oxyhemoglobin Sodium Potassium Chloride Carbon Dioxide BUN Creatinine Glucose POC Glucose 146 H 125 H 131 H Lactic Acid Calcium Ionized Calcium Phosphorus Magnesium Total Bilirubin AST ALT Alkaline Phosphatase Ammonia Total Creatine Kinase CK-MB (CK-2) CK-MB (CK-2) Rel Index Total Protein Albumin Urine WBC (Auto) Vancomycin Trough Salicylates Acetaminophen Plasma/Serum Alcohol Crossmatch 01/13/20 01/13/20 01/13/20 05:44 11:54 17:18 WBC RBC Hgb Hct MCH RDW Plt Count Lymph % (Auto) [place] % (Auto) [place] # Baso # Seg Neutrophils % Seg Neuts % (Manual) Lymphocytes % (Manual) Monocytes % (Manual) Seg Neutrophils # Seg Neutrophils # Man Lymphocytes # (Manual) Monocytes # (Manual) Eosinophils # (Manual) Basophils # (Manual) PT INR APTT ABG pH ABG pO2 ABG HCO3 ABG O2 Saturation ABG Base Excess ABG Hemoglobin Oxyhemoglobin Sodium Potassium Chloride Carbon Dioxide BUN Creatinine Glucose POC Glucose 148 H 140 H 130 H Lactic Acid Calcium Ionized Calcium Phosphorus Magnesium Total Bilirubin AST ALT Alkaline Phosphatase Ammonia Total Creatine Kinase CK-MB (CK-2) CK-MB (CK-2) Rel Index Total Protein Albumin Urine WBC (Auto) Vancomycin Trough Salicylates Acetaminophen Plasma/Serum Alcohol Crossmatch 01/14/20 01/14/20 01/14/20 00:16 05:45 12:19 WBC RBC Hgb Hct MCH RDW Plt Count Lymph % (Auto) [place] % (Auto) [place] # Baso # Seg Neutrophils % Seg Neuts % (Manual) Lymphocytes % (Manual) Monocytes % (Manual) Seg Neutrophils # Seg Neutrophils # Man Lymphocytes # (Manual) Monocytes # (Manual) Eosinophils # (Manual) Basophils # (Manual) PT INR APTT ABG pH ABG pO2 ABG HCO3 ABG O2 Saturation ABG Base Excess ABG Hemoglobin Oxyhemoglobin Sodium Potassium Chloride Carbon Dioxide BUN Creatinine Glucose POC Glucose 125 H 146 H 147 H Lactic Acid Calcium Ionized Calcium Phosphorus Magnesium Total Bilirubin AST ALT Alkaline Phosphatase Ammonia Total Creatine Kinase CK-MB (CK-2) CK-MB (CK-2) Rel Index Total Protein Albumin Urine WBC (Auto) Vancomycin Trough Salicylates Acetaminophen Plasma/Serum Alcohol Crossmatch 01/14/20 01/14/20 01/15/20 18:10 23:54 05:14 WBC RBC Hgb Hct MCH RDW Plt Count Lymph % (Auto) [place] % (Auto) [place] # Baso # Seg Neutrophils % Seg Neuts % (Manual) Lymphocytes % (Manual) Monocytes % (Manual) Seg Neutrophils # Seg Neutrophils # Man Lymphocytes # (Manual) Monocytes # (Manual) Eosinophils # (Manual) Basophils # (Manual) PT INR APTT ABG pH ABG pO2 ABG HCO3 ABG O2 Saturation ABG Base Excess ABG Hemoglobin Oxyhemoglobin Sodium Potassium Chloride Carbon Dioxide BUN Creatinine Glucose POC Glucose 136 H 109 H 111 H Lactic Acid Calcium Ionized Calcium Phosphorus Magnesium Total Bilirubin AST ALT Alkaline Phosphatase Ammonia Total Creatine Kinase CK-MB (CK-2) CK-MB (CK-2) Rel Index Total Protein Albumin Urine WBC (Auto) Vancomycin Trough Salicylates Acetaminophen Plasma/Serum Alcohol Crossmatch 01/15/20 01/15/20 01/16/20 12:34 23:25 05:06 WBC RBC Hgb Hct MCH RDW Plt Count Lymph % (Auto) [place] % (Auto) [place] # Baso # Seg Neutrophils % Seg Neuts % (Manual) Lymphocytes % (Manual) Monocytes % (Manual) Seg Neutrophils # Seg Neutrophils # Man Lymphocytes # (Manual) Monocytes # (Manual) Eosinophils # (Manual) Basophils # (Manual) PT INR APTT ABG pH ABG pO2 ABG HCO3 ABG O2 Saturation ABG Base Excess ABG Hemoglobin Oxyhemoglobin Sodium Potassium Chloride Carbon Dioxide BUN Creatinine Glucose POC Glucose 131 H 120 H 121 H Lactic Acid Calcium Ionized Calcium Phosphorus Magnesium Total Bilirubin AST ALT Alkaline Phosphatase Ammonia Total Creatine Kinase CK-MB (CK-2) CK-MB (CK-2) Rel Index Total Protein Albumin Urine WBC (Auto) Vancomycin Trough Salicylates Acetaminophen Plasma/Serum Alcohol Crossmatch 01/16/20 01/16/20 01/17/20 12:15 23:46 05:32 WBC 13.6 H RBC 3.27 L Hgb 9.3 L Hct 28.5 L MCH RDW 17.0 H Plt Count 490 H Lymph % (Auto) 13.1 L [place] % (Auto) [place] # 1.0 H Baso # Seg Neutrophils % 77.5 H Seg Neuts % (Manual) Lymphocytes % (Manual) Monocytes % (Manual) Seg Neutrophils # 10.5 H Seg Neutrophils # Man Lymphocytes # (Manual) Monocytes # (Manual) Eosinophils # (Manual) Basophils # (Manual) PT INR APTT ABG pH ABG pO2 ABG HCO3 ABG O2 Saturation ABG Base Excess ABG Hemoglobin Oxyhemoglobin Sodium Potassium Chloride Carbon Dioxide BUN Creatinine Glucose POC Glucose 152 H 107 H Lactic Acid Calcium Ionized Calcium Phosphorus Magnesium Total Bilirubin AST ALT Alkaline Phosphatase Ammonia Total Creatine Kinase CK-MB (CK-2) CK-MB (CK-2) Rel Index Total Protein Albumin Urine WBC (Auto) Vancomycin Trough Salicylates Acetaminophen Plasma/Serum Alcohol Crossmatch 01/17/20 01/17/20 01/17/20 06:47 12:16 17:21 WBC RBC Hgb Hct MCH RDW Plt Count Lymph % (Auto) [place] % (Auto) [place] # Baso # Seg Neutrophils % Seg Neuts % (Manual) Lymphocytes % (Manual) Monocytes % (Manual) Seg Neutrophils # Seg Neutrophils # Man Lymphocytes # (Manual) Monocytes # (Manual) Eosinophils # (Manual) Basophils # (Manual) PT INR APTT ABG pH ABG pO2 ABG HCO3 ABG O2 Saturation ABG Base Excess ABG Hemoglobin Oxyhemoglobin Sodium Potassium Chloride Carbon Dioxide BUN Creatinine Glucose POC Glucose 112 H 145 H 150 H Lactic Acid Calcium Ionized Calcium Phosphorus Magnesium Total Bilirubin AST ALT Alkaline Phosphatase Ammonia Total Creatine Kinase CK-MB (CK-2) CK-MB (CK-2) Rel Index Total Protein Albumin Urine WBC (Auto) Vancomycin Trough Salicylates Acetaminophen Plasma/Serum Alcohol Crossmatch 01/17/20 01/18/20 01/18/20 23:34 05:47 12:43 WBC RBC Hgb Hct MCH RDW Plt Count Lymph % (Auto) [place] % (Auto) [place] # Baso # Seg Neutrophils % Seg Neuts % (Manual) Lymphocytes % (Manual) Monocytes % (Manual) Seg Neutrophils # Seg Neutrophils # Man Lymphocytes # (Manual) Monocytes # (Manual) Eosinophils # (Manual) Basophils # (Manual) PT INR APTT ABG pH ABG pO2 ABG HCO3 ABG O2 Saturation ABG Base Excess ABG Hemoglobin Oxyhemoglobin Sodium Potassium Chloride Carbon Dioxide BUN Creatinine Glucose POC Glucose 160 H 130 H 124 H Lactic Acid Calcium Ionized Calcium Phosphorus Magnesium Total Bilirubin AST ALT Alkaline Phosphatase Ammonia Total Creatine Kinase CK-MB (CK-2) CK-MB (CK-2) Rel Index Total Protein Albumin Urine WBC (Auto) Vancomycin Trough Salicylates Acetaminophen Plasma/Serum Alcohol Crossmatch 01/18/20 01/19/20 01/19/20 18:26 00:14 06:24 WBC RBC Hgb Hct MCH RDW Plt Count Lymph % (Auto) [place] % (Auto) [place] # Baso # Seg Neutrophils % Seg Neuts % (Manual) Lymphocytes % (Manual) Monocytes % (Manual) Seg Neutrophils # Seg Neutrophils # Man Lymphocytes # (Manual) Monocytes # (Manual) Eosinophils # (Manual) Basophils # (Manual) PT INR APTT ABG pH ABG pO2 ABG HCO3 ABG O2 Saturation ABG Base Excess ABG Hemoglobin Oxyhemoglobin Sodium Potassium Chloride Carbon Dioxide BUN Creatinine Glucose POC Glucose 119 H 114 H 144 H Lactic Acid Calcium Ionized Calcium Phosphorus Magnesium Total Bilirubin AST ALT Alkaline Phosphatase Ammonia Total Creatine Kinase CK-MB (CK-2) CK-MB (CK-2) Rel Index Total Protein Albumin Urine WBC (Auto) Vancomycin Trough Salicylates Acetaminophen Plasma/Serum Alcohol Crossmatch 01/19/20 01/19/20 01/20/20 12:24 17:50 12:06 WBC RBC Hgb Hct MCH RDW Plt Count Lymph % (Auto) [place] % (Auto) [place] # Baso # Seg Neutrophils % Seg Neuts % (Manual) Lymphocytes % (Manual) Monocytes % (Manual) Seg Neutrophils # Seg Neutrophils # Man Lymphocytes # (Manual) Monocytes # (Manual) Eosinophils # (Manual) Basophils # (Manual) PT INR APTT ABG pH ABG pO2 ABG HCO3 ABG O2 Saturation ABG Base Excess ABG Hemoglobin Oxyhemoglobin Sodium Potassium Chloride Carbon Dioxide BUN Creatinine Glucose POC Glucose 132 H 144 H 135 H Lactic Acid Calcium Ionized Calcium Phosphorus Magnesium Total Bilirubin AST ALT Alkaline Phosphatase Ammonia Total Creatine Kinase CK-MB (CK-2) CK-MB (CK-2) Rel Index Total Protein Albumin Urine WBC (Auto) Vancomycin Trough Salicylates Acetaminophen Plasma/Serum Alcohol Crossmatch 05/04/20 05/04/20 05/04/20 05:46 13:02 23:49 WBC RBC Hgb Hct MCH RDW Plt Count Lymph % (Auto) [place] % (Auto) [place] # Baso # Seg Neutrophils % Seg Neuts % (Manual) Lymphocytes % (Manual) Monocytes % (Manual) Seg Neutrophils # Seg Neutrophils # Man Lymphocytes # (Manual) Monocytes # (Manual) Eosinophils # (Manual) Basophils # (Manual) PT INR APTT ABG pH ABG pO2 ABG HCO3 ABG O2 Saturation ABG Base Excess ABG Hemoglobin Oxyhemoglobin Sodium Potassium Chloride Carbon Dioxide BUN Creatinine Glucose POC Glucose 114 H 136 H 120 H Lactic Acid Calcium Ionized Calcium Phosphorus Magnesium Total Bilirubin AST ALT Alkaline Phosphatase Ammonia Total Creatine Kinase CK-MB (CK-2) CK-MB (CK-2) Rel Index Total Protein Albumin Urine WBC (Auto) Vancomycin Trough Salicylates Acetaminophen Plasma/Serum Alcohol Crossmatch 01/22/20 01/22/20 01/22/20 05:41 11:44 16:31 WBC RBC Hgb Hct MCH RDW Plt Count Lymph % (Auto) [place] % (Auto) [place] # Baso # Seg Neutrophils % Seg Neuts % (Manual) Lymphocytes % (Manual) Monocytes % (Manual) Seg Neutrophils # Seg Neutrophils # Man Lymphocytes # (Manual) Monocytes # (Manual) Eosinophils # (Manual) Basophils # (Manual) PT INR APTT ABG pH ABG pO2 ABG HCO3 ABG O2 Saturation ABG Base Excess ABG Hemoglobin Oxyhemoglobin Sodium Potassium Chloride Carbon Dioxide BUN Creatinine Glucose POC Glucose 124 H 173 H 111 H Lactic Acid Calcium Ionized Calcium Phosphorus Magnesium Total Bilirubin AST ALT Alkaline Phosphatase Ammonia Total Creatine Kinase CK-MB (CK-2) CK-MB (CK-2) Rel Index Total Protein Albumin Urine WBC (Auto) Vancomycin Trough Salicylates Acetaminophen Plasma/Serum Alcohol Crossmatch 01/22/20 01/23/20 01/23/20 23:25 05:15 12:15 WBC RBC Hgb Hct MCH RDW Plt Count Lymph % (Auto) [place] % (Auto) [place] # Baso # Seg Neutrophils % Seg Neuts % (Manual) Lymphocytes % (Manual) Monocytes % (Manual) Seg Neutrophils # Seg Neutrophils # Man Lymphocytes # (Manual) Monocytes # (Manual) Eosinophils # (Manual) Basophils # (Manual) PT INR APTT ABG pH ABG pO2 ABG HCO3 ABG O2 Saturation ABG Base Excess ABG Hemoglobin Oxyhemoglobin Sodium Potassium Chloride Carbon Dioxide BUN Creatinine Glucose POC Glucose 134 H 117 H 129 H Lactic Acid Calcium Ionized Calcium Phosphorus Magnesium Total Bilirubin AST ALT Alkaline Phosphatase Ammonia Total Creatine Kinase CK-MB (CK-2) CK-MB (CK-2) Rel Index Total Protein Albumin Urine WBC (Auto) Vancomycin Trough Salicylates Acetaminophen Plasma/Serum Alcohol Crossmatch 01/23/20 01/23/20 01/23/20 16:58 21:17 23:47 WBC RBC Hgb Hct MCH RDW Plt Count Lymph % (Auto) [place] % (Auto) [place] # Baso # Seg Neutrophils % Seg Neuts % (Manual) Lymphocytes % (Manual) Monocytes % (Manual) Seg Neutrophils # Seg Neutrophils # Man Lymphocytes # (Manual) Monocytes # (Manual) Eosinophils # (Manual) Basophils # (Manual) PT INR APTT ABG pH ABG pO2 ABG HCO3 ABG O2 Saturation ABG Base Excess ABG Hemoglobin Oxyhemoglobin Sodium Potassium Chloride Carbon Dioxide BUN Creatinine Glucose POC Glucose 156 H 185 H 156 H Lactic Acid Calcium Ionized Calcium Phosphorus Magnesium Total Bilirubin AST ALT Alkaline Phosphatase Ammonia Total Creatine Kinase CK-MB (CK-2) CK-MB (CK-2) Rel Index Total Protein Albumin Urine WBC (Auto) Vancomycin Trough Salicylates Acetaminophen Plasma/Serum Alcohol Crossmatch 01/24/20 01/24/20 01/24/20 04:47 04:47 05:59 WBC 17.8 H RBC 3.60 L Hgb Hct MCH RDW 16.2 H Plt Count 688 H Lymph % (Auto) 11.8 L [place] % (Auto) 7.5 H [place] # 1.3 H Baso # Seg Neutrophils % 79.9 H Seg Neuts % (Manual) Lymphocytes % (Manual) Monocytes % (Manual) Seg Neutrophils # 14.2 H Seg Neutrophils # Man Lymphocytes # (Manual) Monocytes # (Manual) Eosinophils # (Manual) Basophils # (Manual) PT INR APTT ABG pH ABG pO2 ABG HCO3 ABG O2 Saturation ABG Base Excess ABG Hemoglobin Oxyhemoglobin Sodium 131 L Potassium Chloride 91.2 L Carbon Dioxide BUN 22 H Creatinine 0.3 L Glucose 123 H POC Glucose 147 H Lactic Acid Calcium 10.9 H Ionized Calcium Phosphorus Magnesium Total Bilirubin AST ALT Alkaline Phosphatase Ammonia Total Creatine Kinase CK-MB (CK-2) CK-MB (CK-2) Rel Index Total Protein Albumin Urine WBC (Auto) Vancomycin Trough Salicylates Acetaminophen Plasma/Serum Alcohol Crossmatch 01/24/20 01/24/20 01/25/20 11:47 16:45 00:18 WBC RBC Hgb Hct MCH RDW Plt Count Lymph % (Auto) [place] % (Auto) [place] # Baso # Seg Neutrophils % Seg Neuts % (Manual) Lymphocytes % (Manual) Monocytes % (Manual) Seg Neutrophils # Seg Neutrophils # Man Lymphocytes # (Manual) Monocytes # (Manual) Eosinophils # (Manual) Basophils # (Manual) PT INR APTT ABG pH ABG pO2 ABG HCO3 ABG O2 Saturation ABG Base Excess ABG Hemoglobin Oxyhemoglobin Sodium Potassium Chloride Carbon Dioxide BUN Creatinine Glucose POC Glucose 114 H 108 H 119 H Lactic Acid Calcium Ionized Calcium Phosphorus Magnesium Total Bilirubin AST ALT Alkaline Phosphatase Ammonia Total Creatine Kinase CK-MB (CK-2) CK-MB (CK-2) Rel Index Total Protein Albumin Urine WBC (Auto) Vancomycin Trough Salicylates Acetaminophen Plasma/Serum Alcohol Crossmatch 01/25/20 01/25/20 01/25/20 07:18 11:58 16:56 WBC RBC Hgb Hct MCH RDW Plt Count Lymph % (Auto) [place] % (Auto) [place] # Baso # Seg Neutrophils % Seg Neuts % (Manual) Lymphocytes % (Manual) Monocytes % (Manual) Seg Neutrophils # Seg Neutrophils # Man Lymphocytes # (Manual) Monocytes # (Manual) Eosinophils # (Manual) Basophils # (Manual) PT INR APTT ABG pH ABG pO2 ABG HCO3 ABG O2 Saturation ABG Base Excess ABG Hemoglobin Oxyhemoglobin Sodium Potassium Chloride Carbon Dioxide BUN Creatinine Glucose POC Glucose 136 H 136 H 147 H Lactic Acid Calcium Ionized Calcium Phosphorus Magnesium Total Bilirubin AST ALT Alkaline Phosphatase Ammonia Total Creatine Kinase CK-MB (CK-2) CK-MB (CK-2) Rel Index Total Protein Albumin Urine WBC (Auto) Vancomycin Trough Salicylates Acetaminophen Plasma/Serum Alcohol Crossmatch 01/26/20 01/26/20 01/26/20 00:29 05:59 05:59 WBC 12.8 H RBC Hgb Hct MCH RDW 16.4 H Plt Count 743 H Lymph % (Auto) [place] % (Auto) [place] # 0.9 H Baso # Seg Neutrophils % 76.2 H Seg Neuts % (Manual) Lymphocytes % (Manual) Monocytes % (Manual) Seg Neutrophils # 9.8 H Seg Neutrophils # Man Lymphocytes # (Manual) Monocytes # (Manual) Eosinophils # (Manual) Basophils # (Manual) PT INR APTT ABG pH ABG pO2 ABG HCO3 ABG O2 Saturation ABG Base Excess ABG Hemoglobin Oxyhemoglobin Sodium 132 L Potassium Chloride 90.9 L Carbon Dioxide BUN 23 H Creatinine 0.4 L Glucose 122 H POC Glucose 107 H Lactic Acid Calcium 11.0 H Ionized Calcium Phosphorus Magnesium Total Bilirubin AST ALT Alkaline Phosphatase Ammonia Total Creatine Kinase CK-MB (CK-2) CK-MB (CK-2) Rel Index Total Protein Albumin Urine WBC (Auto) Vancomycin Trough Salicylates Acetaminophen Plasma/Serum Alcohol Crossmatch 01/26/20 01/26/20 01/26/20 06:27 12:06 16:49 WBC RBC Hgb Hct MCH RDW Plt Count Lymph % (Auto) [place] % (Auto) [place] # Baso # Seg Neutrophils % Seg Neuts % (Manual) Lymphocytes % (Manual) Monocytes % (Manual) Seg Neutrophils # Seg Neutrophils # Man Lymphocytes # (Manual) Monocytes # (Manual) Eosinophils # (Manual) Basophils # (Manual) PT INR APTT ABG pH ABG pO2 ABG HCO3 ABG O2 Saturation ABG Base Excess ABG Hemoglobin Oxyhemoglobin Sodium Potassium Chloride Carbon Dioxide BUN Creatinine Glucose POC Glucose 132 H 132 H 110 H Lactic Acid Calcium Ionized Calcium Phosphorus Magnesium Total Bilirubin AST ALT Alkaline Phosphatase Ammonia Total Creatine Kinase CK-MB (CK-2) CK-MB (CK-2) Rel Index Total Protein Albumin Urine WBC (Auto) Vancomycin Trough Salicylates Acetaminophen Plasma/Serum Alcohol Crossmatch 01/27/20 01/27/20 01/27/20 00:08 11:49 16:24 WBC RBC Hgb Hct MCH RDW Plt Count Lymph % (Auto) [place] % (Auto) [place] # Baso # Seg Neutrophils % Seg Neuts % (Manual) Lymphocytes % (Manual) Monocytes % (Manual) Seg Neutrophils # Seg Neutrophils # Man Lymphocytes # (Manual) Monocytes # (Manual) Eosinophils # (Manual) Basophils # (Manual) PT INR APTT ABG pH ABG pO2 ABG HCO3 ABG O2 Saturation ABG Base Excess ABG Hemoglobin Oxyhemoglobin Sodium Potassium Chloride Carbon Dioxide BUN Creatinine Glucose POC Glucose 107 H 119 H 129 H Lactic Acid Calcium Ionized Calcium Phosphorus Magnesium Total Bilirubin AST ALT Alkaline Phosphatase Ammonia Total Creatine Kinase CK-MB (CK-2) CK-MB (CK-2) Rel Index Total Protein Albumin Urine WBC (Auto) Vancomycin Trough Salicylates Acetaminophen Plasma/Serum Alcohol Crossmatch 01/27/20 01/28/20 01/28/20 18:28 01:00 06:22 WBC RBC Hgb Hct MCH RDW Plt Count Lymph % (Auto) [place] % (Auto) [place] # Baso # Seg Neutrophils % Seg Neuts % (Manual) Lymphocytes % (Manual) Monocytes % (Manual) Seg Neutrophils # Seg Neutrophils # Man Lymphocytes # (Manual) Monocytes # (Manual) Eosinophils # (Manual) Basophils # (Manual) PT INR APTT ABG pH ABG pO2 ABG HCO3 ABG O2 Saturation ABG Base Excess ABG Hemoglobin Oxyhemoglobin Sodium Potassium Chloride Carbon Dioxide BUN Creatinine Glucose POC Glucose 126 H 121 H 114 H Lactic Acid Calcium Ionized Calcium Phosphorus Magnesium Total Bilirubin AST ALT Alkaline Phosphatase Ammonia Total Creatine Kinase CK-MB (CK-2) CK-MB (CK-2) Rel Index Total Protein Albumin Urine WBC (Auto) Vancomycin Trough Salicylates Acetaminophen Plasma/Serum Alcohol Crossmatch 01/28/20 01/28/20 01/29/20 11:47 18:00 00:05 WBC RBC Hgb Hct MCH RDW Plt Count Lymph % (Auto) [place] % (Auto) [place] # Baso # Seg Neutrophils % Seg Neuts % (Manual) Lymphocytes % (Manual) Monocytes % (Manual) Seg Neutrophils # Seg Neutrophils # Man Lymphocytes # (Manual) Monocytes # (Manual) Eosinophils # (Manual) Basophils # (Manual) PT INR APTT ABG pH ABG pO2 ABG HCO3 ABG O2 Saturation ABG Base Excess ABG Hemoglobin Oxyhemoglobin Sodium Potassium Chloride Carbon Dioxide BUN Creatinine Glucose POC Glucose 106 H 117 H 127 H Lactic Acid Calcium Ionized Calcium Phosphorus Magnesium Total Bilirubin AST ALT Alkaline Phosphatase Ammonia Total Creatine Kinase CK-MB (CK-2) CK-MB (CK-2) Rel Index Total Protein Albumin Urine WBC (Auto) Vancomycin Trough Salicylates Acetaminophen Plasma/Serum Alcohol Crossmatch 01/29/20 01/29/20 01/29/20 06:04 11:40 16:38 WBC RBC Hgb Hct MCH RDW Plt Count Lymph % (Auto) [place] % (Auto) [place] # Baso # Seg Neutrophils % Seg Neuts % (Manual) Lymphocytes % (Manual) Monocytes % (Manual) Seg Neutrophils # Seg Neutrophils # Man Lymphocytes # (Manual) Monocytes # (Manual) Eosinophils # (Manual) Basophils # (Manual) PT INR APTT ABG pH ABG pO2 ABG HCO3 ABG O2 Saturation ABG Base Excess ABG Hemoglobin Oxyhemoglobin Sodium Potassium Chloride Carbon Dioxide BUN Creatinine Glucose POC Glucose 147 H 139 H 143 H Lactic Acid Calcium Ionized Calcium Phosphorus Magnesium Total Bilirubin AST ALT Alkaline Phosphatase Ammonia Total Creatine Kinase CK-MB (CK-2) CK-MB (CK-2) Rel Index Total Protein Albumin Urine WBC (Auto) Vancomycin Trough Salicylates Acetaminophen Plasma/Serum Alcohol Crossmatch 01/29/20 01/30/20 01/30/20 23:46 06:43 12:07 WBC RBC Hgb Hct MCH RDW Plt Count Lymph % (Auto) [place] % (Auto) [place] # Baso # Seg Neutrophils % Seg Neuts % (Manual) Lymphocytes % (Manual) Monocytes % (Manual) Seg Neutrophils # Seg Neutrophils # Man Lymphocytes # (Manual) Monocytes # (Manual) Eosinophils # (Manual) Basophils # (Manual) PT INR APTT ABG pH ABG pO2 ABG HCO3 ABG O2 Saturation ABG Base Excess ABG Hemoglobin Oxyhemoglobin Sodium Potassium Chloride Carbon Dioxide BUN Creatinine Glucose POC Glucose 122 H 122 H 134 H Lactic Acid Calcium Ionized Calcium Phosphorus Magnesium Total Bilirubin AST ALT Alkaline Phosphatase Ammonia Total Creatine Kinase CK-MB (CK-2) CK-MB (CK-2) Rel Index Total Protein Albumin Urine WBC (Auto) Vancomycin Trough Salicylates Acetaminophen Plasma/Serum Alcohol Crossmatch 01/30/20 01/31/20 01/31/20 17:59 00:52 05:54 WBC RBC Hgb Hct MCH RDW Plt Count Lymph % (Auto) [place] % (Auto) [place] # Baso # Seg Neutrophils % Seg Neuts % (Manual) Lymphocytes % (Manual) Monocytes % (Manual) Seg Neutrophils # Seg Neutrophils # Man Lymphocytes # (Manual) Monocytes # (Manual) Eosinophils # (Manual) Basophils # (Manual) PT INR APTT ABG pH ABG pO2 ABG HCO3 ABG O2 Saturation ABG Base Excess ABG Hemoglobin Oxyhemoglobin Sodium Potassium Chloride Carbon Dioxide BUN Creatinine Glucose POC Glucose 116 H 127 H 127 H Lactic Acid Calcium Ionized Calcium Phosphorus Magnesium Total Bilirubin AST ALT Alkaline Phosphatase Ammonia Total Creatine Kinase CK-MB (CK-2) CK-MB (CK-2) Rel Index Total Protein Albumin Urine WBC (Auto) Vancomycin Trough Salicylates Acetaminophen Plasma/Serum Alcohol Crossmatch Allied health notes reviewed: nursing
[2020-01-31] MEDS: SERTRALINE 50 MG TAB PO SCH (10:32)
[2020-01-31] MEDS: GLYCOPYRROLATE 1 MG TAB PO SCH ×3 (10:32→22:36)
[2020-01-31] MEDS: LANSOPRAZOLE 30 MG SOLUTAB FEEDTUBE SCH (10:32)
[2020-01-31] MEDS: MIRTAZAPINE 30 MG TAB PO SCH (10:32)
[2020-01-31] MEDS: levETIRAcetam 500 MG/5 ML ORAL LIQD PO SCH ×2 (10:33→22:37)
[2020-01-31] MEDS: TAMSULOSIN 0.4 MG CAP PO SCH (10:33)
[2020-01-31] MEDS: hydrOXYzine PAMOATE 25 MG CAP PO SCH ×2 (10:33→22:37)
--- NOTE | 2020-01-31 11:04 | Progress Note ---
Assessment and Plan / Anoxic brain injury: suspected CT head: No acute abnormality. EEG ordered showed Generalized slowing. No seizures or epileptiform activity. Per neurology : Patient found to have intact corneal/VOR/cough reflexes, and is withdrawing lower extremities, given that patient had an out of hospital cardiac arrest, the time of which is uncertain, the likelihood of meaningful neurological recovery is somewhat low. -Patient now opening her eyes and able to follow minor command by nodding head /Acute Respiratory failure -s/p intubation, s/p trach and PEG on 12/12 with mechanical ventilation, now on T-piece - CTA was done and negative for PE, - Echo quality is poor, showed diastolic dysfunction - continue weaning as tolerated /Anemia, microcytic - Status post 3 units PRBC transfusion, H&H low stable /Acute metabolic encephalopathy/toxic encephalopathy due to the above - cont supportive care /Hyperammonemia - likely from liver disease related to EtOH abuse - Patient had elevated ammonia level and treated with lactulose /Metabolic Acidosis -Alcohol ketoacidosis vs hypoprofusion -Continue to monitor /ELevated LFTs, stable now - due to ischemic hepatitis. /Leucocytosis with sepsis - Source MRSA bacteremia and MSSA pneumonia. UA showed pyuria. RUQ US showed no ascites. - Repeat TTE negative for vegetation. Completed 7 days of Ceftriaxone on 11/29/2019. -Treated with Abx vancomycin 1 gm IV q 12 hour total 2 week till 12/30/2019 /MSSA pneumonia: Status post vancomycin till 12/30/2019 /ALcohol USe Disorder - given ongoing Alcohol use almost daily, s/p IV Thiamine - monitor /Severe hypokalemia -Repleted /Seizure disorder: treat with Keppra /H. Influenzae, tracheobronchitis, treated with abx DNR CODE STATUS Disposition: prognosis guarded. Family okay for DNR, PT recommended subacute rehab, discharge pending on placement. negative for COVID 19 Brief History: 54-year-old female with a past medical history of Hypertension, Depression, Tobacco use Disorder, Alcohol use Disorder as confirmed by Daughter and pt's mother presents to the hospital status post cardiac arrest at home. EMS found [place]. They were unable to intubate patient with a ET tube because she was clenching down therefore Joe airway placed. Per the ED physician who evaluated pt, Patient presented with a pulse, intermittent respirations, and bagging support via Joe airway with O2 sat of 100%. Accu-Chek of 71 obtained by EMS. She was intubated in the ER and called for admission. Following admission patient was diagnosed with anoxic brain injury, sepsis with MRSA bacteremia and MSSA pneumonia, alcoholic liver disease. Family member initially wished for full code then changed to DNR, patient treated with IV antibiotics for sepsis, status post trach and PEG on 12/13/19. Weaned off from the vent and put on T- piece. Patient is uninsured, waiting for placement, guarded prognosis. Physical exam: General appearance: Present: other (elderly female, open eyes) - EENT Eyes: no scleral icterus, no conjunctival injection, pupil not reactive ENT: clear oral mucosa, dentition normal, no oropharyngeal erythema Ears: bilateral: normal - Neck Neck: trach on place - Respiratory Respiratory effort: other (on T-piece) Respiratory: bilateral: rales - Cardiovascular Rhythm: regular Heart Sounds: Present: S1 & S2. Absent: gallop, rub Extremities: pulses intact, No edema, normal color - Gastrointestinal General gastrointestinal: Present: soft, non-tender, non-distended, normal bowel sounds - Integumentary Integumentary: clear, warm, dry - Musculoskeletal Musculoskeletal: No joint swelling or tenderness - Neurologic Neurologic: other (2+ reflexes throughout). respond to commend and nods head. generalized weakness - Psychiatric Psychiatric: co-operative Subjective Date of service: 01/30/20 Principal diagnosis: Ac cardiopulmonary arrest; Ac hypoxemic resp failure; Acute encephalopathy Interval history: Patient seen and examined medical records reviewed Patient is alert and awake not in acute distress Tracheostomy on T-piece, Vital signs noted discharge pending on placement, negative for COVID 19 Objective - Constitutional Vitals: Vital Signs - 12hr 01/31/20 01/31/20 01/31/20 00:39 04:04 04:24 Temperature 97.6 F 97.9 F Pulse Rate 107 H 100 H Pulse Rate [ 109 H Anterior Left Throughout] Pulse Rate [ 112 H Anterior Right Throughout] Respiratory 20 20 Rate Respiratory 20 Rate [Anterior Left Throughout ] Respiratory 24 Rate [Anterior Right Throughout] Blood Pressure 128/82 Blood Pressure 129/80 [Left] O2 Sat by Pulse 100 99 Oximetry 01/31/20 07:58 Temperature 98.8 F Pulse Rate 100 H Pulse Rate [ Anterior Left Throughout] Pulse Rate [ Anterior Right Throughout] Respiratory 22 Rate Respiratory Rate [Anterior Left Throughout ] Respiratory Rate [Anterior Right Throughout] Blood Pressure 124/76 Blood Pressure [Left] O2 Sat by Pulse 94 Oximetry - Labs CBC & Chem 7: 01/26/20 05:59 01/26/20 05:59 Labs: Abnormal lab results 01/30/20 01/30/20 01/31/20 Range/Units 12:07 17:59 00:52 POC Glucose 134 H 116 H 127 H (70-105) 01/31/20 Range/Units 05:54 POC Glucose 127 H (70-105)
[2020-01-31] MEDS: QUEtiapine 100 MG TAB FEEDTUBE SCH (22:36)
[2020-02-01] MEDS: LEVALBUTEROL 0.63 MG/3 ML NEBU IH SCH ×4 (05:11→21:35)
--- NOTE | 2020-02-01 08:11 | Progress Note ---
Assessment and Plan / Anoxic brain injury: suspected CT head: No acute abnormality. EEG ordered showed Generalized slowing. No seizures or epileptiform activity. Per neurology : Patient found to have intact corneal/VOR/cough reflexes, and is withdrawing lower extremities, given that patient had an out of hospital cardiac arrest, the time of which is uncertain, the likelihood of meaningful neurological recovery is somewhat low. -Patient now opening her eyes and able to follow minor command by nodding head /Acute Respiratory failure -s/p intubation, s/p trach and PEG on 12/12 with mechanical ventilation, now on T-piece - CTA was done and negative for PE, - Echo quality is poor, showed diastolic dysfunction - continue weaning as tolerated /Anemia, microcytic - Status post 3 units PRBC transfusion, H&H low stable /Acute metabolic encephalopathy/toxic encephalopathy due to the above - cont supportive care /Hyperammonemia - likely from liver disease related to EtOH abuse - Patient had elevated ammonia level and treated with lactulose /Metabolic Acidosis -Alcohol ketoacidosis vs hypoprofusion -Continue to monitor /ELevated LFTs, stable now - due to ischemic hepatitis. /Leucocytosis with sepsis - Source MRSA bacteremia and MSSA pneumonia. UA showed pyuria. RUQ US showed no ascites. - Repeat TTE negative for vegetation. Completed 7 days of Ceftriaxone on 11/29/2019. -Treated with Abx vancomycin 1 gm IV q 12 hour total 2 week till 12/30/2019 /MSSA pneumonia: Status post vancomycin till 12/30/2019 /ALcohol USe Disorder - given ongoing Alcohol use almost daily, s/p IV Thiamine - monitor /Severe hypokalemia -Repleted /Seizure disorder: treat with Keppra /H. Influenzae, tracheobronchitis, treated with abx DNR CODE STATUS Disposition: prognosis guarded. Family okay for DNR, PT recommended subacute rehab, discharge pending on placement. negative for COVID 19 Brief History: 54-year-old female with a past medical history of Hypertension, Depression, Tobacco use Disorder, Alcohol use Disorder as confirmed by Daughter and pt's mother presents to the hospital status post cardiac arrest at home. EMS found [place]. They were unable to intubate patient with a ET tube because she was clenching down therefore Joe airway placed. Per the ED physician who evaluated pt, Patient presented with a pulse, intermittent respirations, and bagging support via Joe airway with O2 sat of 100%. Accu-Chek of 71 obtained by EMS. She was intubated in the ER and called for admission. Following admission patient was diagnosed with anoxic brain injury, sepsis with MRSA bacteremia and MSSA pneumonia, alcoholic liver disease. Family member initially wished for full code then changed to DNR, patient treated with IV antibiotics for sepsis, status post trach and PEG on 12/13/19. Weaned off from the vent and put on T- piece. Patient is uninsured, waiting for placement, guarded prognosis. Physical exam: General appearance: Present: other (elderly female, open eyes) - EENT Eyes: no scleral icterus, no conjunctival injection, pupil not reactive ENT: clear oral mucosa, dentition normal, no oropharyngeal erythema Ears: bilateral: normal - Neck Neck: trach on place - Respiratory Respiratory effort: other (on T-piece) Respiratory: bilateral: rales - Cardiovascular Rhythm: regular Heart Sounds: Present: S1 & S2. Absent: gallop, rub Extremities: pulses intact, No edema, normal color - Gastrointestinal General gastrointestinal: Present: soft, non-tender, non-distended, normal bowel sounds - Integumentary Integumentary: clear, warm, dry - Musculoskeletal Musculoskeletal: No joint swelling or tenderness - Neurologic Neurologic: other (2+ reflexes throughout). respond to commend and nods head. generalized weakness - Psychiatric Psychiatric: co-operative Subjective Date of service: 01/31/20 Principal diagnosis: Ac cardiopulmonary arrest; Ac hypoxemic resp failure; Acute encephalopathy Interval history: Patient seen and examined medical records reviewed Patient is alert and awake not in acute distress Tracheostomy on T-piece, Vital signs noted discharge pending on placement, negative for COVID 19 Objective - Constitutional Vitals: Vital Signs - 12hr 01/31/20 01/31/20 01/31/20 22:00 22:21 22:22 Temperature Pulse Rate 107 H Pulse Rate [ 116 H Anterior Left Throughout] Pulse Rate [ 116 H Anterior Right Throughout] Pulse Rate [ 113 H From Monitor] Respiratory 20 Rate Respiratory 20 Rate [Anterior Left Throughout ] Respiratory 20 Rate [Anterior Right Throughout] Blood Pressure O2 Sat by Pulse 99 98 Oximetry O2 Sat by Pulse Oximetry [ Assessment] 01/31/20 02/01/20 02/01/20 23:46 00:00 04:00 Temperature 98.4 F Pulse Rate 101 H Pulse Rate [ Anterior Left Throughout] Pulse Rate [ Anterior Right Throughout] Pulse Rate [ From Monitor] Respiratory 20 Rate Respiratory Rate [Anterior Left Throughout ] Respiratory Rate [Anterior Right Throughout] Blood Pressure 117/74 O2 Sat by Pulse 100 98 Oximetry O2 Sat by Pulse 98 Oximetry [ Assessment] 02/01/20 07:58 Temperature 98.0 F Pulse Rate 113 H Pulse Rate [ Anterior Left Throughout] Pulse Rate [ Anterior Right Throughout] Pulse Rate [ From Monitor] Respiratory 20 Rate Respiratory Rate [Anterior Left Throughout ] Respiratory Rate [Anterior Right Throughout] Blood Pressure 121/79 O2 Sat by Pulse 90 Oximetry O2 Sat by Pulse Oximetry [ Assessment] - Labs CBC & Chem 7: 01/26/20 05:59 01/26/20 05:59 Labs: Abnormal lab results 01/31/20 Range/Units 12:20 POC Glucose 126 H (70-105) HEART Score - HEART Score Troponin: Troponin T < 0.010 ng/mL (0.00-0.029) 11/22/19 23:27
[2020-02-01] MEDS: GLYCOPYRROLATE 1 MG TAB PO SCH ×3 (12:02→21:54)
[2020-02-01] MEDS: SERTRALINE 50 MG TAB PO SCH (12:02)
[2020-02-01] MEDS: levETIRAcetam 500 MG/5 ML ORAL LIQD PO SCH ×2 (12:02→21:53)
[2020-02-01] MEDS: hydrOXYzine PAMOATE 25 MG CAP PO SCH ×2 (12:03→21:54)
[2020-02-01] MEDS: MIRTAZAPINE 30 MG TAB PO SCH (12:03)
[2020-02-01] MEDS: LANSOPRAZOLE 30 MG SOLUTAB FEEDTUBE SCH (12:04)
[2020-02-01] MEDS: TAMSULOSIN 0.4 MG CAP PO SCH (12:05)
[2020-02-01] MEDS: QUEtiapine 100 MG TAB FEEDTUBE SCH (21:53)
[2020-02-02] MEDS: LEVALBUTEROL 0.63 MG/3 ML NEBU IH SCH ×4 (03:01→20:32)
[2020-02-02] MEDS: GLYCOPYRROLATE 1 MG TAB PO SCH ×3 (08:00→21:45)
[2020-02-02] MEDS: SERTRALINE 50 MG TAB PO SCH (11:06)
[2020-02-02] MEDS: TAMSULOSIN 0.4 MG CAP PO SCH (11:06)
[2020-02-02] MEDS: LANSOPRAZOLE 30 MG SOLUTAB FEEDTUBE SCH (11:06)
[2020-02-02] MEDS: levETIRAcetam 500 MG/5 ML ORAL LIQD PO SCH ×2 (11:06→21:45)
[2020-02-02] MEDS: hydrOXYzine PAMOATE 25 MG CAP PO SCH ×2 (11:07→21:45)
[2020-02-02] MEDS: MIRTAZAPINE 30 MG TAB PO SCH (11:07)
[2020-02-02] MEDS: ONDANSETRON 4 MG/2 ML INJ IV PRN (12:25)
--- NOTE | 2020-02-02 13:01 | Progress Note ---
Assessment and Plan / Anoxic brain injury: suspected CT head: No acute abnormality. EEG ordered showed Generalized slowing. No seizures or epileptiform activity. Per neurology : Patient found to have intact corneal/VOR/cough reflexes, and is withdrawing lower extremities, given that patient had an out of hospital cardiac arrest, the time of which is uncertain, the likelihood of meaningful neurological recovery is somewhat low. -Patient now opening her eyes and able to follow minor command by nodding head /Acute Respiratory failure -s/p intubation, s/p trach and PEG on 12/12 with mechanical ventilation, now on T-piece - CTA was done and negative for PE, - Echo quality is poor, showed diastolic dysfunction - continue weaning as tolerated /Anemia, microcytic - Status post 3 units PRBC transfusion, H&H low stable /Acute metabolic encephalopathy/toxic encephalopathy due to the above - cont supportive care /Hyperammonemia - likely from liver disease related to EtOH abuse - Patient had elevated ammonia level and treated with lactulose /Metabolic Acidosis -Alcohol ketoacidosis vs hypoprofusion -Continue to monitor /ELevated LFTs, stable now - due to ischemic hepatitis. /Leucocytosis with sepsis - Source MRSA bacteremia and MSSA pneumonia. UA showed pyuria. RUQ US showed no ascites. - Repeat TTE negative for vegetation. Completed 7 days of Ceftriaxone on 11/29/2019. -Treated with Abx vancomycin 1 gm IV q 12 hour total 2 week till 12/30/2019 /MSSA pneumonia: Status post vancomycin till 12/30/2019 /ALcohol USe Disorder - given ongoing Alcohol use almost daily, s/p IV Thiamine - monitor /Severe hypokalemia -Repleted /Seizure disorder: treat with Keppra /H. Influenzae, tracheobronchitis, treated with abx DNR CODE STATUS Disposition: prognosis guarded. Family okay for DNR, PT recommended subacute rehab, discharge pending on placement. negative for COVID 19 Brief History: 54-year-old female with a past medical history of Hypertension, Depression, Tobacco use Disorder, Alcohol use Disorder as confirmed by Daughter and pt's mother presents to the hospital status post cardiac arrest at home. EMS found pt [place]. They were unable to intubate patient with a ET tube because she was clenching down therefore Joe airway placed. Per the ED physician who evaluated pt, Patient presented with a pulse, intermittent respirations, and bagging support via Joe airway with O2 sat of 100%. Accu-Chek of 71 obtained by EMS. She was intubated in the ER and called for admission. Following admission patient was diagnosed with anoxic brain injury, sepsis with MRSA bacteremia and MSSA pneumonia, alcoholic liver disease. Family member initially wished for full code then changed to DNR, patient treated with IV antibiotics for sepsis, status post trach and PEG on 12/13/19. Weaned off from the vent and put on T- piece. Patient is uninsured, waiting for placement, guarded prognosis. Physical exam: General appearance: Present: other (elderly female, open eyes) - EENT Eyes: no scleral icterus, no conjunctival injection, pupil not reactive ENT: clear oral mucosa, dentition normal, no oropharyngeal erythema Ears: bilateral: normal - Neck Neck: trach on place - Respiratory Respiratory effort: other (on T-piece) Respiratory: bilateral: rales - Cardiovascular Rhythm: regular Heart Sounds: Present: S1 & S2. Absent: gallop, rub Extremities: pulses intact, No edema, normal color - Gastrointestinal General gastrointestinal: Present: soft, non-tender, non-distended, normal bowel sounds - Integumentary Integumentary: clear, warm, dry - Musculoskeletal Musculoskeletal: No joint swelling or tenderness - Neurologic Neurologic: other (2+ reflexes throughout). respond to commend and nods head. generalized weakness - Psychiatric Psychiatric: co-operative Subjective Date of service: 02/01/20 Principal diagnosis: Ac cardiopulmonary arrest; Ac hypoxemic resp failure; Acute encephalopathy Interval history: Patient seen and examined medical records reviewed Patient is alert and awake not in acute distress Tracheostomy on T-piece, Vital signs noted discharge pending on placement, negative for COVID 19 Objective - Constitutional Vitals: Vital Signs - 12hr 02/02/20 02/02/20 02/02/20 02:00 02:49 05:58 Temperature 98.1 F Pulse Rate 106 H Pulse Rate [ 98 H Anterior Right Throughout] Respiratory 18 Rate Respiratory 18 Rate [Anterior Right Throughout] Blood Pressure 119/85 O2 Sat by Pulse 95 Oximetry O2 Sat by Pulse 99 Oximetry [ Assessment] 02/02/20 02/02/20 02/02/20 08:00 09:15 09:54 Temperature 97.4 F L Pulse Rate 106 H Pulse Rate [ 109 H Anterior Right Throughout] Respiratory 18 Rate Respiratory 17 Rate [Anterior Right Throughout] Blood Pressure 110/79 O2 Sat by Pulse 100 Oximetry O2 Sat by Pulse 98 Oximetry [ Assessment] - Labs CBC & Chem 7: 01/26/20 05:59 01/26/20 05:59 HEART Score - HEART Score Troponin: Troponin T < 0.010 ng/mL (0.00-0.029) 11/22/19 23:27
[2020-02-02] MEDS: QUEtiapine 100 MG TAB FEEDTUBE SCH (21:45)
[2020-02-03] MEDS: LEVALBUTEROL 0.63 MG/3 ML NEBU IH SCH ×4 (05:00→20:59)
[2020-02-03 07:14] LABS: Basophils # (Auto) 0.1 K/mm3 (0.0-0.1); Basophils % (Auto) 0.6 % (0.0-1.8); Eosinophils # (Auto) 0.2 K/mm3 (0.0-0.4); Eosinophils % (Auto) 2.5 % (0.0-4.3); Hematocrit 29.9 % (30.3-42.9); Hemoglobin 10.1 gm/dl (10.1-14.3); Lymphocytes # (Auto) 1.9 K/mm3 (1.2-5.4); Lymphocytes % (Auto) 20.2 % (13.4-35.0); Mean Corpuscular HGB Conc 34 % (30-34); Mean Corpuscular Volume 86 fl (79-97); Monocytes # (Auto) 0.9 K/mm3 (0.0-0.8); Monocytes % (Auto) 9.3 % (0.0-7.3); Platelet Count 707 K/mm3 (140-440); Red Blood Count 3.48 M/mm3 (3.65-5.03); Red Cell Distribution Width 16.2 % (13.2-15.2)
[2020-02-03 07:23] LABS: BUN/Creatinine Ratio 40; Blood Urea Nitrogen 20 mg/dL (7-17); Calcium 10.8 mg/dL (8.4-10.2); Hemolysis Index 0
[2020-02-03] MEDS: GLYCOPYRROLATE 1 MG TAB PO SCH ×3 (08:00→22:15)
[2020-02-03] MEDS: SERTRALINE 50 MG TAB PO SCH (09:16)
[2020-02-03] MEDS: LANSOPRAZOLE 30 MG SOLUTAB FEEDTUBE SCH (09:16)
[2020-02-03] MEDS: TAMSULOSIN 0.4 MG CAP PO SCH (09:16)
[2020-02-03] MEDS: levETIRAcetam 500 MG/5 ML ORAL LIQD PO SCH ×2 (09:17→22:15)
[2020-02-03] MEDS: MIRTAZAPINE 30 MG TAB PO SCH (09:17)
[2020-02-03] MEDS: hydrOXYzine PAMOATE 25 MG CAP PO SCH ×2 (09:18→22:15)
--- NOTE | 2020-02-03 10:40 | Progress Note ---
Assessment and Plan / Anoxic brain injury: suspected CT head: No acute abnormality. EEG ordered showed Generalized slowing. No seizures or epileptiform activity. Per neurology : Patient found to have intact corneal/VOR/cough reflexes, and is withdrawing lower extremities, given that patient had an out of hospital cardiac arrest, the time of which is uncertain, the likelihood of meaningful neurological recovery is somewhat low. -Patient now opening her eyes and able to follow minor command by nodding head /Acute Respiratory failure -s/p intubation, s/p trach and PEG on 12/12 with mechanical ventilation, now on T-piece - CTA was done and negative for PE, - Echo quality is poor, showed diastolic dysfunction - continue weaning as tolerated /Anemia, microcytic - Status post 3 units PRBC transfusion, H&H low stable /Acute metabolic encephalopathy/toxic encephalopathy due to the above - cont supportive care /Hyperammonemia - likely from liver disease related to EtOH abuse - Patient had elevated ammonia level and treated with lactulose /Metabolic Acidosis -Alcohol ketoacidosis vs hypoprofusion -Continue to monitor /ELevated LFTs, stable now - due to ischemic hepatitis. /Leucocytosis with sepsis - Source MRSA bacteremia and MSSA pneumonia. UA showed pyuria. RUQ US showed no ascites. - Repeat TTE negative for vegetation. Completed 7 days of Ceftriaxone on 11/29/2019. -Treated with Abx vancomycin 1 gm IV q 12 hour total 2 week till 12/30/2019 /MSSA pneumonia: Status post vancomycin till 12/30/2019 /ALcohol USe Disorder - given ongoing Alcohol use almost daily, s/p IV Thiamine - monitor /Severe hypokalemia -Repleted /Seizure disorder: treat with Keppra /H. Influenzae, tracheobronchitis, treated with abx DNR CODE STATUS Disposition: prognosis guarded. Family okay for DNR, PT recommended subacute rehab, discharge pending on placement. negative for COVID 19 Brief History: 54-year-old female with a past medical history of Hypertension, Depression, Tobacco use Disorder, Alcohol use Disorder as confirmed by Daughter and pt's mother presents to the hospital status post cardiac arrest at home. EMS found pt [place]. They were unable to intubate patient with a ET tube because she was clenching down therefore Joe airway placed. Per the ED physician who evaluated pt, Patient presented with a pulse, intermittent respirations, and bagging support via Joe airway with O2 sat of 100%. Accu-Chek of 71 obtained by EMS. She was intubated in the ER and called for admission. Following admission patient was diagnosed with anoxic brain injury, sepsis with MRSA bacteremia and MSSA pneumonia, alcoholic liver disease. Family member initially wished for full code then changed to DNR, patient treated with IV antibiotics for sepsis, status post trach and PEG on 12/13/19. Weaned off from the vent and put on T- piece. Patient is uninsured, waiting for placement, guarded prognosis. Physical exam: General appearance: Present: other (elderly female, open eyes) - EENT Eyes: no scleral icterus, no conjunctival injection, pupil not reactive ENT: clear oral mucosa, dentition normal, no oropharyngeal erythema Ears: bilateral: normal - Neck Neck: trach on place - Respiratory Respiratory effort: other (on T-piece) Respiratory: bilateral: rales - Cardiovascular Rhythm: regular Heart Sounds: Present: S1 & S2. Absent: gallop, rub Extremities: pulses intact, No edema, normal color - Gastrointestinal General gastrointestinal: Present: soft, non-tender, non-distended, normal bowel sounds - Integumentary Integumentary: clear, warm, dry - Musculoskeletal Musculoskeletal: No joint swelling or tenderness - Neurologic Neurologic: other (2+ reflexes throughout). respond to commend and nods head. generalized weakness - Psychiatric Psychiatric: co-operative Subjective Date of service: 02/03/20 Principal diagnosis: Ac cardiopulmonary arrest; Ac hypoxemic resp failure; Acute encephalopathy Interval history: Patient seen and examined medical records reviewed Patient is alert and awake not in acute distress Tracheostomy on T-piece, Vital signs noted discharge pending on placement, negative for COVID 19 Objective - Constitutional Vitals: Vital Signs - 12hr 02/03/20 02/03/20 02/03/20 00:00 00:02 04:16 Temperature 97.7 F 98.9 F Pulse Rate 111 H 107 H 114 H Pulse Rate [ Posterior Bilateral Throughout] Respiratory 18 20 Rate Respiratory Rate [Posterior Bilateral Throughout] Blood Pressure 116/75 129/82 O2 Sat by Pulse 98 98 Oximetry 02/03/20 02/03/20 02/03/20 08:05 08:17 08:23 Temperature 97.4 F L Pulse Rate 110 H Pulse Rate [ 114 H Posterior Bilateral Throughout] Respiratory 18 Rate Respiratory 20 Rate [Posterior Bilateral Throughout] Blood Pressure 124/81 O2 Sat by Pulse 98 98 Oximetry - Labs CBC & Chem 7: 02/03/20 05:59 02/03/20 05:59 Labs: Abnormal lab results 02/03/20 02/03/20 Range/Units 05:59 05:59 RBC 3.48 L (3.65-5.03) M/mm3 Hct 29.9 L (30.3-42.9) % RDW 16.2 H (13.2-15.2) % Plt Count 707 H (140-440) K/mm3 [place] % (Auto) 9.3 H (0.0-7.3) % [place] # 0.9 H (0.0-0.8) K/mm3 Sodium 136 L (137-145) mmol/L Chloride 93.4 L (98-107) mmol/L BUN 20 H (7-17) mg/dL Creatinine 0.5 L (0.7-1.2) mg/dL Glucose 101 H (65-100) mg/dL Calcium 10.8 H (8.4-10.2) mg/dL HEART Score - HEART Score Troponin: Troponin T < 0.010 ng/mL (0.00-0.029) 11/22/19 23:27
[2020-02-03] MEDS: QUEtiapine 100 MG TAB FEEDTUBE SCH (22:15)
[2020-02-03] MEDS: ONDANSETRON 4 MG/2 ML INJ IV PRN (22:15)
[2020-02-03] MEDS: ACETAMINOPHEN 325 MG/10.15 ML ORAL LIQD UNIT DOSE FEEDTUBE PRN (22:16)
[2020-02-04] MEDS: LEVALBUTEROL 0.63 MG/3 ML NEBU IH SCH ×4 (03:30→20:48)
[2020-02-04] MEDS: ACETAMINOPHEN 325 MG/10.15 ML ORAL LIQD UNIT DOSE FEEDTUBE PRN ×2 (04:04→21:32)
--- NOTE | 2020-02-04 09:30 | Progress Note ---
Assessment and Plan / Anoxic brain injury: suspected CT head: No acute abnormality. EEG ordered showed Generalized slowing. No seizures or epileptiform activity. Per neurology : Patient found to have intact corneal/VOR/cough reflexes, and is withdrawing lower extremities, given that patient had an out of hospital cardiac arrest, the time of which is uncertain, the likelihood of meaningful neurological recovery is somewhat low. -Patient now opening her eyes and able to follow minor command by nodding head /Acute Respiratory failure -s/p intubation, s/p trach and PEG on 12/12 with mechanical ventilation, now on T-piece - CTA was done and negative for PE, - Echo quality is poor, showed diastolic dysfunction - continue weaning as tolerated /Anemia, microcytic - Status post 3 units PRBC transfusion, H&H low stable /Acute metabolic encephalopathy/toxic encephalopathy due to the above - cont supportive care /Hyperammonemia - likely from liver disease related to EtOH abuse - Patient had elevated ammonia level and treated with lactulose /Metabolic Acidosis -Alcohol ketoacidosis vs hypoprofusion -Continue to monitor /ELevated LFTs, stable now - due to ischemic hepatitis. /Leucocytosis with sepsis - Source MRSA bacteremia and MSSA pneumonia. UA showed pyuria. RUQ US showed no ascites. - Repeat TTE negative for vegetation. Completed 7 days of Ceftriaxone on 11/29/2019. -Treated with Abx vancomycin 1 gm IV q 12 hour total 2 week till 12/30/2019 /MSSA pneumonia: Status post vancomycin till 12/30/2019 /ALcohol USe Disorder - given ongoing Alcohol use almost daily, s/p IV Thiamine - monitor /Severe hypokalemia -Repleted /Seizure disorder: treat with Keppra /H. Influenzae, tracheobronchitis, treated with abx DNR CODE STATUS Disposition: prognosis guarded. Family okay for DNR, PT recommended subacute rehab, discharge pending on placement. negative for COVID 19 Brief History: 54-year-old female with a past medical history of Hypertension, Depression, Tobacco use Disorder, Alcohol use Disorder as confirmed by Daughter and pt's mother presents to the hospital status post cardiac arrest at home. EMS found pt in [place]. They were unable to intubate patient with a ET tube because she was clenching down therefore Joe airway placed. Per the ED physician who evaluated pt, Patient presented with a pulse, intermittent respirations, and bagging support via Joe airway with O2 sat of 100%. Accu-Chek of 71 obtained by EMS. She was intubated in the ER and called for admission. Following admission patient was diagnosed with anoxic brain injury, sepsis with MRSA bacteremia and MSSA pneumonia, alcoholic liver disease. Family member initially wished for full code then changed to DNR, patient treated with IV antibiotics for sepsis, status post trach and PEG on 12/13/19. Weaned off from the vent and put on T- piece. Patient is uninsured, waiting for placement, guarded prognosis. Physical exam: General appearance: Present: other (elderly female, open eyes) - EENT Eyes: no scleral icterus, no conjunctival injection, pupil not reactive ENT: clear oral mucosa, dentition normal, no oropharyngeal erythema Ears: bilateral: normal - Neck Neck: trach on place - Respiratory Respiratory effort: other (on T-piece) Respiratory: bilateral: rales - Cardiovascular Rhythm: regular Heart Sounds: Present: S1 & S2. Absent: gallop, rub Extremities: pulses intact, No edema, normal color - Gastrointestinal General gastrointestinal: Present: soft, non-tender, non-distended, normal bowel sounds - Integumentary Integumentary: clear, warm, dry - Musculoskeletal Musculoskeletal: No joint swelling or tenderness - Neurologic Neurologic: other (2+ reflexes throughout). respond to commend and nods head. generalized weakness - Psychiatric Psychiatric: co-operative Subjective Date of service: 02/04/20 Principal diagnosis: Ac cardiopulmonary arrest; Ac hypoxemic resp failure; Acute encephalopathy Interval history: Patient seen and examined medical records reviewed Patient is alert and awake not in acute distress Tracheostomy on T-piece, Vital signs noted discharge pending on placement, negative for COVID 19 Objective - Constitutional Vitals: Vital Signs - 12hr 02/03/20 02/03/20 02/03/20 22:00 22:16 23:06 Temperature 97.9 F Pulse Rate 109 H 107 H Pulse Rate [ 102 H From Monitor] Pulse Rate [ Posterior Bilateral Throughout] Respiratory 24 20 18 Rate Respiratory Rate [Posterior Bilateral Throughout] Blood Pressure 112/73 O2 Sat by Pulse 97 100 Oximetry O2 Sat by Pulse Oximetry [ Assessment] 02/04/20 02/04/20 02/04/20 03:54 04:10 08:54 Temperature 97.5 F L Pulse Rate 109 H Pulse Rate [ From Monitor] Pulse Rate [ 98 H Posterior Bilateral Throughout] Respiratory 20 Rate Respiratory 20 Rate [Posterior Bilateral Throughout] Blood Pressure 123/77 O2 Sat by Pulse 100 Oximetry O2 Sat by Pulse 99 Oximetry [ Assessment] 02/04/20 09:03 Temperature Pulse Rate Pulse Rate [ From Monitor] Pulse Rate [ Posterior Bilateral Throughout] Respiratory Rate Respiratory Rate [Posterior Bilateral Throughout] Blood Pressure O2 Sat by Pulse 98 Oximetry O2 Sat by Pulse Oximetry [ Assessment] - Labs CBC & Chem 7: 02/03/20 05:59 02/03/20 05:59 HEART Score - HEART Score Troponin: Troponin T < 0.010 ng/mL (0.00-0.029) 11/22/19 23:27
[2020-02-04] MEDS: hydrOXYzine PAMOATE 25 MG CAP PO SCH ×2 (09:48→21:33)
[2020-02-04] MEDS: GLYCOPYRROLATE 1 MG TAB PO SCH ×3 (09:48→21:31)
[2020-02-04] MEDS: LANSOPRAZOLE 30 MG SOLUTAB FEEDTUBE SCH (09:49)
[2020-02-04] MEDS: SERTRALINE 50 MG TAB PO SCH (09:49)
[2020-02-04] MEDS: MIRTAZAPINE 30 MG TAB PO SCH (09:49)
[2020-02-04] MEDS: levETIRAcetam 500 MG/5 ML ORAL LIQD PO SCH ×2 (09:49→21:32)
[2020-02-04] MEDS: TAMSULOSIN 0.4 MG CAP PO SCH (09:50)
--- NOTE | 2020-02-04 16:59 | Progress Note ---
Assessment and Plan Acute cardiopulmonary arrest with ROSC Acute hypoxemic respiratory failure s/p MVS s/p Tracheostomy Oropharyngeal dysphagia s/p PEG MRSA Bacteremia- treated MRSA pneumonia-treated Acute pvijionws-hnmau-iroxep encephalopathy Metabolic acidosis/alcoholic acidosis/Lactic acidosis( resolved) Ischemic hepatitis Erythrocytosis Tobacco use disorder Alcohol use Disorder Continue all current care as documented below Discharge planning -CBC, BMP prn -Replace and correct electrolytes as indicated -Trach care, airway clearance, secretion management( continue scopolamine patch and Robinul) -CXR, ABG prn -Weaning trials as tolerated- PMV and possible capping as tolerated -Continue contact isolation for MRSA -Trend WCC and temperature curve -PT/OT -Supportive transfusions as indicated for HgB <7g/dL -Continue aspiration precautions, HOB>40 -Continue enteric nutritional support at goal rate. -Continue to monitor glycemic control, with target blood glucose 140-180 mg/dL while critically ill. -Avoid hypoglycemia - Continue to wean supplemental oxygen for target O2 sat's > 90% -Continue thiamine, multivitamin and electrolyte replacement -Continue to avoid nephrotoxins, adjust all medications for GFR and CrCL - Continue bronchodilators with pulmonary hygiene - Continue to maintain of sleep-wake cycle, avoid delirium - Continue mobility protocol and skin assessment per protocol for pressure ulcer prevention - Continue to monitor for clinical seizures - continue other care per attending / other consultants CONDITION: FAIR PROGNOSIS: FAIR CODE STATUS: DNAR Subjective Date of service: 02/04/20 Principal diagnosis: Ac cardiopulmonary arrest; Ac hypoxemic resp failure; Acute encephalopathy Interval history: Patient is seen today for: Acute cardiopulmonary arrest with ROSC; Acute hypoxemic respiratory failure; Acute metabolic-toxic encephalopathy; Ischemic hepatitis; Leucocytosis with lactic acidosis; Tobacco use disorder; Alcohol use Disorder; s/p tracheostomy; s/p PEG Seen and examined at bedside; 24hour events reviewed; nursing and respiratory care staff consulted; no adverse overnight events reported to me; resting peacefully in bed; continues to tolerate PMV/capping trials No fevers, no vomiting, continues to tolerate tube feedings Awake and alert, responsive No new issues Objective Vital Signs - 12hr 02/04/20 02/04/20 02/04/20 08:54 09:03 09:36 Temperature 98.5 F Pulse Rate 99 H Pulse Rate [ From Monitor] Pulse Rate [ 98 H Posterior Bilateral Throughout] Respiratory 19 Rate Respiratory 20 Rate [Posterior Bilateral Throughout] Blood Pressure 119/77 O2 Sat by Pulse 98 99 Oximetry O2 Sat by Pulse Oximetry [ Assessment] 02/04/20 02/04/20 02/04/20 10:00 13:54 14:10 Temperature Pulse Rate 109 H Pulse Rate [ 109 H From Monitor] Pulse Rate [ 123 H Posterior Bilateral Throughout] Respiratory 24 Rate Respiratory 20 Rate [Posterior Bilateral Throughout] Blood Pressure O2 Sat by Pulse 97 Oximetry O2 Sat by Pulse 98 Oximetry [ Assessment] Constitutional: no acute distress, other (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, with midline tracheostomy and with normal respiratory effort aT REST) Eyes: non-icteric ENT: oropharynx moist, other (s/p trach) Neck: supple, no lymphadenopathy, no JVD Effort: mildly labored Ascultation: Bilateral: diminished breath sounds, rhonchi Percussion: Bilateral: not dull Cardiovascular: regular rate and rhythm (tachycardia), other (S1,S2) Gastrointestinal: normoactive bowel sounds, soft, non-tender, non-distended Integumentary: normal Extremities: no cyanosis, no edema, pulses normal, no ischemia or petechiae Neurologic: other (awake; folowing simple commands) Psychiatric: other (Psychiatric: Unable to assess re: AMS) CBC and BMP: 02/03/20 05:59 02/03/20 05:59 ABG, PT/INR, D-dimer: ABG ABG pH 7.429 pH Units (7.350-7.450) 01/09/20 08:51 ABG pCO2 39.1 mm Hg 01/09/20 08:51 ABG pO2 94.3 mm Hg (80.0-90.0) H 01/09/20 08:51 ABG O2 Saturation 97.4 % (95.0-99.0) 01/09/20 08:51 PT/INR, D-dimer PT 17.0 Sec. (12.2-14.9) H 11/23/19 03:47 INR 1.36 (0.87-1.13) H 11/23/19 03:47 Abnormal lab findings: Abnormal Labs 11/22/19 11/22/19 11/22/19 23:17 23:18 23:27 WBC 21.2 H RBC 3.59 L Hgb 9.8 L Hct MCH 27 L RDW 18.6 H Plt Count 454 H Lymph % (Auto) [place] % (Auto) [place] # Baso # Seg Neutrophils % Seg Neuts % (Manual) 86.0 H Lymphocytes % (Manual) 9.0 L Monocytes % (Manual) Seg Neutrophils # Seg Neutrophils # Man 18.2 H Lymphocytes # (Manual) Monocytes # (Manual) 1.1 H Eosinophils # (Manual) Basophils # (Manual) PT INR APTT ABG pH ABG pO2 ABG HCO3 ABG O2 Saturation ABG Base Excess ABG Hemoglobin Oxyhemoglobin Sodium Potassium Chloride Carbon Dioxide BUN Creatinine Glucose POC Glucose 53 L Lactic Acid Calcium Ionized Calcium Phosphorus Magnesium Total Bilirubin AST ALT Alkaline Phosphatase Ammonia Total Creatine Kinase CK-MB (CK-2) CK-MB (CK-2) Rel Index Total Protein Albumin Urine WBC (Auto) 40.0 H Vancomycin Trough Salicylates Acetaminophen Plasma/Serum Alcohol Crossmatch 11/22/19 11/22/19 11/22/19 23:27 23:27 23:27 WBC RBC Hgb Hct MCH RDW Plt Count Lymph % (Auto) [place] % (Auto) [place] # Baso # Seg Neutrophils % Seg Neuts % (Manual) Lymphocytes % (Manual) Monocytes % (Manual) Seg Neutrophils # Seg Neutrophils # Man Lymphocytes # (Manual) Monocytes # (Manual) Eosinophils # (Manual) Basophils # (Manual) PT INR APTT ABG pH ABG pO2 ABG HCO3 ABG O2 Saturation ABG Base Excess ABG Hemoglobin Oxyhemoglobin Sodium Potassium 2.4 L* Chloride 85.1 L Carbon Dioxide 19 L BUN Creatinine 0.5 L Glucose 261 H POC Glucose Lactic Acid Calcium Ionized Calcium Phosphorus Magnesium Total Bilirubin AST 609 H ALT 152 H Alkaline Phosphatase 160 H Ammonia 117.0 H Total Creatine Kinase 139 H CK-MB (CK-2) 8.3 H CK-MB (CK-2) Rel Index 5.9 H Total Protein Albumin 3.6 L Urine WBC (Auto) Vancomycin Trough Salicylates < 0.3 L Acetaminophen Plasma/Serum Alcohol Crossmatch 11/22/19 11/22/19 11/23/19 23:27 23:27 01:10 WBC RBC Hgb Hct MCH RDW Plt Count Lymph % (Auto) [place] % (Auto) [place] # Baso # Seg Neutrophils % Seg Neuts % (Manual) Lymphocytes % (Manual) Monocytes % (Manual) Seg Neutrophils # Seg Neutrophils # Man Lymphocytes # (Manual) Monocytes # (Manual) Eosinophils # (Manual) Basophils # (Manual) PT INR APTT ABG pH 7.273 L ABG pO2 209.7 H ABG HCO3 ABG O2 Saturation 99.2 H ABG Base Excess -3.9 L ABG Hemoglobin 10.6 L Oxyhemoglobin 93.9 L Sodium Potassium Chloride Carbon Dioxide BUN Creatinine Glucose POC Glucose Lactic Acid Calcium Ionized Calcium Phosphorus Magnesium Total Bilirubin AST ALT Alkaline Phosphatase Ammonia Total Creatine Kinase CK-MB (CK-2) CK-MB (CK-2) Rel Index Total Protein Albumin Urine WBC (Auto) Vancomycin Trough Salicylates Acetaminophen < 5.0 L Plasma/Serum Alcohol 0.08 H Crossmatch 11/23/19 11/23/19 11/23/19 01:19 01:19 03:47 WBC RBC Hgb Hct MCH RDW Plt Count Lymph % (Auto) [place] % (Auto) [place] # Baso # Seg Neutrophils % Seg Neuts % (Manual) Lymphocytes % (Manual) Monocytes % (Manual) Seg Neutrophils # Seg Neutrophils # Man Lymphocytes # (Manual) Monocytes # (Manual) Eosinophils # (Manual) Basophils # (Manual) PT 16.3 H INR 1.29 H APTT ABG pH ABG pO2 ABG HCO3 ABG O2 Saturation ABG Base Excess ABG Hemoglobin Oxyhemoglobin Sodium Potassium Chloride Carbon Dioxide BUN Creatinine Glucose POC Glucose Lactic Acid 2.10 H* 5.00 H* Calcium Ionized Calcium Phosphorus Magnesium Total Bilirubin AST ALT Alkaline Phosphatase Ammonia Total Creatine Kinase CK-MB (CK-2) CK-MB (CK-2) Rel Index Total Protein Albumin Urine WBC (Auto) Vancomycin Trough Salicylates Acetaminophen Plasma/Serum Alcohol Crossmatch 11/23/19 11/23/19 11/23/19 03:47 03:47 04:53 WBC RBC Hgb 9.4 L Hct MCH RDW Plt Count Lymph % (Auto) [place] % (Auto) [place] # Baso # Seg Neutrophils % Seg Neuts % (Manual) Lymphocytes % (Manual) Monocytes % (Manual) Seg Neutrophils # Seg Neutrophils # Man Lymphocytes # (Manual) Monocytes # (Manual) Eosinophils # (Manual) Basophils # (Manual) PT 17.0 H INR 1.36 H APTT 128.2 H* ABG pH ABG pO2 ABG HCO3 ABG O2 Saturation ABG Base Excess ABG Hemoglobin Oxyhemoglobin Sodium Potassium Chloride Carbon Dioxide 18 L BUN Creatinine 0.5 L Glucose 105 H POC Glucose Lactic Acid Calcium 8.3 L Ionized Calcium Phosphorus 2.40 L Magnesium Total Bilirubin 1.30 H AST 761 H ALT 158 H Alkaline Phosphatase 143 H Ammonia Total Creatine Kinase CK-MB (CK-2) CK-MB (CK-2) Rel Index Total Protein Albumin 2.8 L Urine WBC (Auto) Vancomycin Trough Salicylates Acetaminophen Plasma/Serum Alcohol Crossmatch 11/23/19 11/23/19 11/23/19 05:12 06:32 06:32 WBC 16.8 H RBC 3.31 L Hgb 8.9 L Hct 28.7 L MCH 27 L RDW 18.6 H Plt Count Lymph % (Auto) [place] % (Auto) [place] # Baso # Seg Neutrophils % Seg Neuts % (Manual) 94.0 H Lymphocytes % (Manual) 1.0 L Monocytes % (Manual) Seg Neutrophils # Seg Neutrophils # Man 15.8 H Lymphocytes # (Manual) 0.2 L Monocytes # (Manual) Eosinophils # (Manual) Basophils # (Manual) PT INR APTT ABG pH ABG pO2 ABG HCO3 ABG O2 Saturation ABG Base Excess -3.2 L ABG Hemoglobin 9.0 L Oxyhemoglobin 93.6 L Sodium Potassium Chloride Carbon Dioxide BUN Creatinine Glucose POC Glucose Lactic Acid Calcium Ionized Calcium 4.5 L Phosphorus Magnesium Total Bilirubin AST ALT Alkaline Phosphatase Ammonia Total Creatine Kinase CK-MB (CK-2) CK-MB (CK-2) Rel Index Total Protein Albumin Urine WBC (Auto) Vancomycin Trough Salicylates Acetaminophen Plasma/Serum Alcohol Crossmatch 11/23/19 11/24/19 11/24/19 06:32 04:35 04:35 WBC RBC Hgb Hct MCH RDW Plt Count Lymph % (Auto) [place] % (Auto) [place] # Baso # Seg Neutrophils % Seg Neuts % (Manual) Lymphocytes % (Manual) Monocytes % (Manual) Seg Neutrophils # Seg Neutrophils # Man Lymphocytes # (Manual) Monocytes # (Manual) Eosinophils # (Manual) Basophils # (Manual) PT INR APTT ABG pH ABG pO2 ABG HCO3 ABG O2 Saturation ABG Base Excess ABG Hemoglobin Oxyhemoglobin Sodium Potassium Chloride Carbon Dioxide BUN Creatinine Glucose POC Glucose Lactic Acid 3.30 H* Calcium Ionized Calcium Phosphorus Magnesium 1.40 L Total Bilirubin AST ALT Alkaline Phosphatase Ammonia 98.0 H Total Creatine Kinase CK-MB (CK-2) CK-MB (CK-2) Rel Index Total Protein Albumin Urine WBC (Auto) Vancomycin Trough Salicylates Acetaminophen Plasma/Serum Alcohol Crossmatch 11/24/19 11/25/19 11/25/19 05:22 04:34 05:05 WBC 17.3 H RBC 2.88 L Hgb 7.8 L Hct 24.6 L MCH 27 L RDW 18.5 H Plt Count Lymph % (Auto) 7.7 L [place] % (Auto) 9.7 H [place] # 1.7 H Baso # Seg Neutrophils % 82.2 H Seg Neuts % (Manual) Lymphocytes % (Manual) Monocytes % (Manual) Seg Neutrophils # 14.2 H Seg Neutrophils # Man Lymphocytes # (Manual) Monocytes # (Manual) Eosinophils # (Manual) Basophils # (Manual) PT INR APTT ABG pH 7.475 H ABG pO2 ABG HCO3 29.4 H 32.3 H ABG O2 Saturation ABG Base Excess 5.4 H 6.9 H ABG Hemoglobin 9.0 L 10.6 L Oxyhemoglobin 94.3 L Sodium Potassium Chloride Carbon Dioxide BUN Creatinine Glucose POC Glucose Lactic Acid Calcium Ionized Calcium Phosphorus Magnesium Total Bilirubin AST ALT Alkaline Phosphatase Ammonia Total Creatine Kinase CK-MB (CK-2) CK-MB (CK-2) Rel Index Total Protein Albumin Urine WBC (Auto) Vancomycin Trough Salicylates Acetaminophen Plasma/Serum Alcohol Crossmatch 11/25/19 11/25/19 11/26/19 05:05 22:46 03:31 WBC RBC Hgb Hct MCH RDW Plt Count Lymph % (Auto) [place] % (Auto) [place] # Baso # Seg Neutrophils % Seg Neuts % (Manual) Lymphocytes % (Manual) Monocytes % (Manual) Seg Neutrophils # Seg Neutrophils # Man Lymphocytes # (Manual) Monocytes # (Manual) Eosinophils # (Manual) Basophils # (Manual) PT INR APTT ABG pH 7.459 H ABG pO2 ABG HCO3 34.2 H ABG O2 Saturation ABG Base Excess 9.4 H ABG Hemoglobin 7.6 L Oxyhemoglobin 94.8 L Sodium 152 H D 147 H Potassium 2.3 L* D 2.8 L* D Chloride 107.8 H Carbon Dioxide 31 H D 33 H BUN Creatinine 0.6 L 0.6 L Glucose 148 H 177 H POC Glucose Lactic Acid Calcium Ionized Calcium Phosphorus Magnesium Total Bilirubin AST 105 H ALT 71 H Alkaline Phosphatase 155 H Ammonia Total Creatine Kinase CK-MB (CK-2) CK-MB (CK-2) Rel Index Total Protein 5.2 L D Albumin 2.9 L Urine WBC (Auto) Vancomycin Trough Salicylates Acetaminophen Plasma/Serum Alcohol Crossmatch 11/26/19 11/26/19 11/27/19 08:24 08:24 04:20 WBC 12.0 H RBC 3.00 L Hgb 8.0 L 9.3 L Hct 25.9 L 29.7 L MCH 27 L RDW 18.5 H Plt Count Lymph % (Auto) [place] % (Auto) [place] # Baso # Seg Neutrophils % Seg Neuts % (Manual) 89.0 H Lymphocytes % (Manual) 4.0 L Monocytes % (Manual) Seg Neutrophils # Seg Neutrophils # Man 10.7 H Lymphocytes # (Manual) 0.5 L Monocytes # (Manual) Eosinophils # (Manual) Basophils # (Manual) PT INR APTT ABG pH ABG pO2 ABG HCO3 ABG O2 Saturation ABG Base Excess ABG Hemoglobin Oxyhemoglobin Sodium 146 H Potassium 3.4 L D Chloride Carbon Dioxide BUN Creatinine 0.5 L Glucose 165 H POC Glucose Lactic Acid Calcium Ionized Calcium Phosphorus Magnesium Total Bilirubin AST 57 H ALT Alkaline Phosphatase 166 H Ammonia Total Creatine Kinase CK-MB (CK-2) CK-MB (CK-2) Rel Index Total Protein Albumin 2.9 L Urine WBC (Auto) Vancomycin Trough Salicylates Acetaminophen Plasma/Serum Alcohol Crossmatch 11/27/19 11/27/19 11/27/19 04:28 04:28 04:42 WBC RBC Hgb Hct MCH RDW Plt Count Lymph % (Auto) [place] % (Auto) [place] # Baso # Seg Neutrophils % Seg Neuts % (Manual) Lymphocytes % (Manual) Monocytes % (Manual) Seg Neutrophils # Seg Neutrophils # Man Lymphocytes # (Manual) Monocytes # (Manual) Eosinophils # (Manual) Basophils # (Manual) PT INR APTT ABG pH 7.470 H ABG pO2 74.0 L ABG HCO3 33.8 H ABG O2 Saturation ABG Base Excess 9.1 H ABG Hemoglobin 8.7 L Oxyhemoglobin 94.7 L Sodium 146 H Potassium 2.9 L* Chloride Carbon Dioxide BUN 25 H Creatinine Glucose 213 H POC Glucose Lactic Acid Calcium Ionized Calcium Phosphorus 1.00 L Magnesium Total Bilirubin AST ALT Alkaline Phosphatase Ammonia Total Creatine Kinase CK-MB (CK-2) CK-MB (CK-2) Rel Index Total Protein Albumin Urine WBC (Auto) Vancomycin Trough Salicylates Acetaminophen Plasma/Serum Alcohol Crossmatch 11/27/19 11/27/19 11/27/19 05:37 12:20 15:46 WBC RBC Hgb Hct MCH RDW Plt Count Lymph % (Auto) [place] % (Auto) [place] # Baso # Seg Neutrophils % Seg Neuts % (Manual) Lymphocytes % (Manual) Monocytes % (Manual) Seg Neutrophils # Seg Neutrophils # Man Lymphocytes # (Manual) Monocytes # (Manual) Eosinophils # (Manual) Basophils # (Manual) PT INR APTT ABG pH ABG pO2 ABG HCO3 ABG O2 Saturation ABG Base Excess ABG Hemoglobin Oxyhemoglobin Sodium 146 H Potassium 3.5 L D Chloride Carbon Dioxide BUN 24 H Creatinine 0.6 L Glucose 187 H POC Glucose 117 H 220 H Lactic Acid Calcium Ionized Calcium Phosphorus Magnesium Total Bilirubin AST ALT Alkaline Phosphatase Ammonia Total Creatine Kinase CK-MB (CK-2) CK-MB (CK-2) Rel Index Total Protein Albumin Urine WBC (Auto) Vancomycin Trough Salicylates Acetaminophen Plasma/Serum Alcohol Crossmatch 11/27/19 11/28/19 11/28/19 17:28 05:00 05:02 WBC RBC Hgb Hct MCH RDW Plt Count Lymph % (Auto) [place] % (Auto) [place] # Baso # Seg Neutrophils % Seg Neuts % (Manual) Lymphocytes % (Manual) Monocytes % (Manual) Seg Neutrophils # Seg Neutrophils # Man Lymphocytes # (Manual) Monocytes # (Manual) Eosinophils # (Manual) Basophils # (Manual) PT INR APTT ABG pH ABG pO2 72.4 L ABG HCO3 33.6 H ABG O2 Saturation 94.1 L ABG Base Excess 7.3 H ABG Hemoglobin Oxyhemoglobin 91.8 L Sodium 146 H Potassium 3.3 L Chloride Carbon Dioxide BUN 25 H Creatinine 0.6 L Glucose 176 H POC Glucose 198 H Lactic Acid Calcium Ionized Calcium Phosphorus Magnesium Total Bilirubin AST ALT Alkaline Phosphatase Ammonia Total Creatine Kinase CK-MB (CK-2) CK-MB (CK-2) Rel Index Total Protein Albumin Urine WBC (Auto) Vancomycin Trough Salicylates Acetaminophen Plasma/Serum Alcohol Crossmatch 11/28/19 11/28/19 11/29/19 05:02 18:55 10:43 WBC 15.2 H 19.0 H RBC 3.06 L 3.01 L Hgb 8.3 L 8.3 L Hct 27.0 L 26.4 L MCH 27 L RDW 19.0 H 19.7 H Plt Count 479 H 611 H Lymph % (Auto) [place] % (Auto) [place] # Baso # Seg Neutrophils % Seg Neuts % (Manual) 92.0 H Lymphocytes % (Manual) 2.0 L Monocytes % (Manual) Seg Neutrophils # Seg Neutrophils # Man 14.0 H Lymphocytes # (Manual) 0.3 L Monocytes # (Manual) Eosinophils # (Manual) Basophils # (Manual) PT INR APTT ABG pH ABG pO2 ABG HCO3 ABG O2 Saturation ABG Base Excess ABG Hemoglobin Oxyhemoglobin Sodium Potassium Chloride Carbon Dioxide BUN Creatinine Glucose POC Glucose 138 H Lactic Acid Calcium Ionized Calcium Phosphorus Magnesium Total Bilirubin AST ALT Alkaline Phosphatase Ammonia Total Creatine Kinase CK-MB (CK-2) CK-MB (CK-2) Rel Index Total Protein Albumin Urine WBC (Auto) Vancomycin Trough Salicylates Acetaminophen Plasma/Serum Alcohol Crossmatch 11/29/19 11/29/19 11/29/19 10:43 12:27 19:25 WBC RBC Hgb Hct MCH RDW Plt Count Lymph % (Auto) [place] % (Auto) [place] # Baso # Seg Neutrophils % Seg Neuts % (Manual) Lymphocytes % (Manual) Monocytes % (Manual) Seg Neutrophils # Seg Neutrophils # Man Lymphocytes # (Manual) Monocytes # (Manual) Eosinophils # (Manual) Basophils # (Manual) PT INR APTT ABG pH ABG pO2 ABG HCO3 ABG O2 Saturation ABG Base Excess ABG Hemoglobin Oxyhemoglobin Sodium Potassium 2.8 L* Chloride Carbon Dioxide BUN 20 H Creatinine 0.5 L Glucose 121 H POC Glucose 128 H 120 H Lactic Acid Calcium Ionized Calcium Phosphorus Magnesium Total Bilirubin AST ALT Alkaline Phosphatase Ammonia Total Creatine Kinase CK-MB (CK-2) CK-MB (CK-2) Rel Index Total Protein Albumin Urine WBC (Auto) Vancomycin Trough Salicylates Acetaminophen Plasma/Serum Alcohol Crossmatch 11/29/19 11/30/19 11/30/19 23:46 04:10 05:02 WBC RBC Hgb Hct MCH RDW Plt Count Lymph % (Auto) [place] % (Auto) [place] # Baso # Seg Neutrophils % Seg Neuts % (Manual) Lymphocytes % (Manual) Monocytes % (Manual) Seg Neutrophils # Seg Neutrophils # Man Lymphocytes # (Manual) Monocytes # (Manual) Eosinophils # (Manual) Basophils # (Manual) PT INR APTT ABG pH ABG pO2 76.3 L ABG HCO3 32.5 H ABG O2 Saturation ABG Base Excess 6.9 H ABG Hemoglobin 8.0 L Oxyhemoglobin 92.6 L Sodium Potassium Chloride Carbon Dioxide BUN Creatinine Glucose POC Glucose 116 H 128 H Lactic Acid Calcium Ionized Calcium Phosphorus Magnesium Total Bilirubin AST ALT Alkaline Phosphatase Ammonia Total Creatine Kinase CK-MB (CK-2) CK-MB (CK-2) Rel Index Total Protein Albumin Urine WBC (Auto) Vancomycin Trough Salicylates Acetaminophen Plasma/Serum Alcohol Crossmatch 11/30/19 11/30/19 11/30/19 05:25 05:25 12:59 WBC 18.4 H RBC 3.10 L Hgb 8.5 L Hct 27.5 L MCH 27 L RDW 20.9 H Plt Count 691 H Lymph % (Auto) 7.1 L [place] % (Auto) 7.7 H [place] # 1.4 H Baso # Seg Neutrophils % 83.4 H Seg Neuts % (Manual) Lymphocytes % (Manual) Monocytes % (Manual) Seg Neutrophils # 15.4 H Seg Neutrophils # Man Lymphocytes # (Manual) Monocytes # (Manual) Eosinophils # (Manual) Basophils # (Manual) PT INR APTT ABG pH ABG pO2 ABG HCO3 ABG O2 Saturation ABG Base Excess ABG Hemoglobin Oxyhemoglobin Sodium 146 H Potassium Chloride 107.2 H Carbon Dioxide BUN Creatinine 0.5 L Glucose 132 H POC Glucose 124 H Lactic Acid Calcium Ionized Calcium Phosphorus Magnesium Total Bilirubin AST 246 H ALT 274 H Alkaline Phosphatase 203 H Ammonia Total Creatine Kinase CK-MB (CK-2) CK-MB (CK-2) Rel Index Total Protein 5.4 L Albumin 2.9 L Urine WBC (Auto) Vancomycin Trough Salicylates Acetaminophen Plasma/Serum Alcohol Crossmatch 11/30/19 12/01/19 12/01/19 17:53 00:05 05:10 WBC RBC Hgb Hct MCH RDW Plt Count Lymph % (Auto) [place] % (Auto) [place] # Baso # Seg Neutrophils % Seg Neuts % (Manual) Lymphocytes % (Manual) Monocytes % (Manual) Seg Neutrophils # Seg Neutrophils # Man Lymphocytes # (Manual) Monocytes # (Manual) Eosinophils # (Manual) Basophils # (Manual) PT INR APTT ABG pH ABG pO2 ABG HCO3 ABG O2 Saturation ABG Base Excess ABG Hemoglobin Oxyhemoglobin Sodium Potassium Chloride Carbon Dioxide BUN Creatinine Glucose POC Glucose 113 H 143 H 145 H Lactic Acid Calcium Ionized Calcium Phosphorus Magnesium Total Bilirubin AST ALT Alkaline Phosphatase Ammonia Total Creatine Kinase CK-MB (CK-2) CK-MB (CK-2) Rel Index Total Protein Albumin Urine WBC (Auto) Vancomycin Trough Salicylates Acetaminophen Plasma/Serum Alcohol Crossmatch 12/01/19 12/01/19 12/01/19 05:33 08:23 08:23 WBC 22.7 H RBC 2.88 L Hgb 7.9 L Hct 25.2 L MCH 27 L RDW 21.0 H Plt Count 732 H Lymph % (Auto) [place] % (Auto) [place] # Baso # Seg Neutrophils % Seg Neuts % (Manual) 91.0 H Lymphocytes % (Manual) 3.0 L Monocytes % (Manual) Seg Neutrophils # Seg Neutrophils # Man 20.7 H Lymphocytes # (Manual) 0.7 L Monocytes # (Manual) 1.1 H Eosinophils # (Manual) Basophils # (Manual) PT INR APTT ABG pH ABG pO2 68.6 L ABG HCO3 34.1 H ABG O2 Saturation ABG Base Excess 9.0 H ABG Hemoglobin 6.5 L Oxyhemoglobin 94.7 L Sodium Potassium Chloride Carbon Dioxide BUN Creatinine 0.5 L Glucose 125 H POC Glucose Lactic Acid Calcium Ionized Calcium Phosphorus Magnesium Total Bilirubin AST ALT Alkaline Phosphatase Ammonia Total Creatine Kinase CK-MB (CK-2) CK-MB (CK-2) Rel Index Total Protein Albumin Urine WBC (Auto) Vancomycin Trough Salicylates Acetaminophen Plasma/Serum Alcohol Crossmatch 12/01/19 12/01/19 12/01/19 13:21 17:54 20:59 WBC RBC Hgb Hct MCH RDW Plt Count Lymph % (Auto) [place] % (Auto) [place] # Baso # Seg Neutrophils % Seg Neuts % (Manual) Lymphocytes % (Manual) Monocytes % (Manual) Seg Neutrophils # Seg Neutrophils # Man Lymphocytes # (Manual) Monocytes # (Manual) Eosinophils # (Manual) Basophils # (Manual) PT INR APTT ABG pH ABG pO2 78.3 L ABG HCO3 33.8 H ABG O2 Saturation 94.9 L ABG Base Excess 7.9 H ABG Hemoglobin 11.5 L Oxyhemoglobin 92.3 L Sodium Potassium Chloride Carbon Dioxide BUN Creatinine Glucose POC Glucose 111 H 115 H Lactic Acid Calcium Ionized Calcium Phosphorus Magnesium Total Bilirubin AST ALT Alkaline Phosphatase Ammonia Total Creatine Kinase CK-MB (CK-2) CK-MB (CK-2) Rel Index Total Protein Albumin Urine WBC (Auto) Vancomycin Trough Salicylates Acetaminophen Plasma/Serum Alcohol Crossmatch 12/02/19 12/03/19 12/04/19 12:55 20:00 04:26 WBC 15.2 H RBC 2.69 L Hgb 7.4 L Hct 23.6 L MCH 27 L RDW 19.9 H Plt Count 838 H Lymph % (Auto) [place] % (Auto) [place] # Baso # Seg Neutrophils % Seg Neuts % (Manual) Lymphocytes % (Manual) Monocytes % (Manual) Seg Neutrophils # Seg Neutrophils # Man Lymphocytes # (Manual) Monocytes # (Manual) Eosinophils # (Manual) Basophils # (Manual) PT INR APTT ABG pH ABG pO2 68.3 L ABG HCO3 33.5 H ABG O2 Saturation 93.5 L ABG Base Excess 8.4 H ABG Hemoglobin 7.3 L Oxyhemoglobin 90.9 L Sodium Potassium Chloride Carbon Dioxide BUN Creatinine Glucose POC Glucose 107 H Lactic Acid Calcium Ionized Calcium Phosphorus Magnesium Total Bilirubin AST ALT Alkaline Phosphatase Ammonia Total Creatine Kinase CK-MB (CK-2) CK-MB (CK-2) Rel Index Total Protein Albumin Urine WBC (Auto) Vancomycin Trough Salicylates Acetaminophen Plasma/Serum Alcohol Crossmatch 12/04/19 12/04/19 12/04/19 04:26 07:45 12:02 WBC 15.9 H RBC 2.88 L Hgb 7.9 L Hct 25.1 L MCH RDW 20.4 H Plt Count 839 H Lymph % (Auto) 11.3 L [place] % (Auto) 15.2 H [place] # 2.4 H Baso # Seg Neutrophils % 72.4 H Seg Neuts % (Manual) Lymphocytes % (Manual) Monocytes % (Manual) Seg Neutrophils # 11.5 H Seg Neutrophils # Man Lymphocytes # (Manual) Monocytes # (Manual) Eosinophils # (Manual) Basophils # (Manual) PT INR APTT ABG pH ABG pO2 ABG HCO3 ABG O2 Saturation ABG Base Excess ABG Hemoglobin Oxyhemoglobin Sodium Potassium Chloride 96.5 L Carbon Dioxide BUN 21 H Creatinine 0.6 L Glucose 107 H POC Glucose 138 H Lactic Acid Calcium Ionized Calcium Phosphorus Magnesium Total Bilirubin AST ALT Alkaline Phosphatase Ammonia Total Creatine Kinase CK-MB (CK-2) CK-MB (CK-2) Rel Index Total Protein Albumin Urine WBC (Auto) Vancomycin Trough Salicylates Acetaminophen Plasma/Serum Alcohol Crossmatch 12/04/19 12/05/19 12/05/19 18:16 11:55 18:36 WBC RBC Hgb Hct MCH RDW Plt Count Lymph % (Auto) [place] % (Auto) [place] # Baso # Seg Neutrophils % Seg Neuts % (Manual) Lymphocytes % (Manual) Monocytes % (Manual) Seg Neutrophils # Seg Neutrophils # Man Lymphocytes # (Manual) Monocytes # (Manual) Eosinophils # (Manual) Basophils # (Manual) PT INR APTT ABG pH ABG pO2 ABG HCO3 ABG O2 Saturation ABG Base Excess ABG Hemoglobin Oxyhemoglobin Sodium Potassium Chloride Carbon Dioxide BUN Creatinine Glucose POC Glucose 135 H 125 H 135 H Lactic Acid Calcium Ionized Calcium Phosphorus Magnesium Total Bilirubin AST ALT Alkaline Phosphatase Ammonia Total Creatine Kinase CK-MB (CK-2) CK-MB (CK-2) Rel Index Total Protein Albumin Urine WBC (Auto) Vancomycin Trough Salicylates Acetaminophen Plasma/Serum Alcohol Crossmatch 12/05/19 12/06/19 12/06/19 23:30 04:14 05:43 WBC RBC Hgb Hct MCH RDW Plt Count Lymph % (Auto) [place] % (Auto) [place] # Baso # Seg Neutrophils % Seg Neuts % (Manual) Lymphocytes % (Manual) Monocytes % (Manual) Seg Neutrophils # Seg Neutrophils # Man Lymphocytes # (Manual) Monocytes # (Manual) Eosinophils # (Manual) Basophils # (Manual) PT INR APTT ABG pH ABG pO2 ABG HCO3 ABG O2 Saturation ABG Base Excess ABG Hemoglobin Oxyhemoglobin Sodium Potassium 5.6 H Chloride 95.0 L Carbon Dioxide BUN 48 H Creatinine 1.3 H D Glucose POC Glucose 126 H 121 H Lactic Acid Calcium Ionized Calcium Phosphorus Magnesium Total Bilirubin AST 89 H ALT 98 H Alkaline Phosphatase 476 H Ammonia Total Creatine Kinase CK-MB (CK-2) CK-MB (CK-2) Rel Index Total Protein Albumin 2.8 L Urine WBC (Auto) Vancomycin Trough Salicylates Acetaminophen Plasma/Serum Alcohol Crossmatch 12/06/19 12/06/19 12/07/19 10:39 14:34 00:19 WBC 17.3 H RBC 2.60 L Hgb 7.1 L Hct 22.7 L MCH 27 L RDW 20.1 H Plt Count 832 H Lymph % (Auto) [place] % (Auto) [place] # Baso # Seg Neutrophils % Seg Neuts % (Manual) Lymphocytes % (Manual) Monocytes % (Manual) Seg Neutrophils # Seg Neutrophils # Man Lymphocytes # (Manual) Monocytes # (Manual) Eosinophils # (Manual) Basophils # (Manual) PT INR APTT ABG pH ABG pO2 ABG HCO3 ABG O2 Saturation ABG Base Excess ABG Hemoglobin Oxyhemoglobin Sodium Potassium Chloride Carbon Dioxide BUN Creatinine Glucose POC Glucose 128 H 136 H Lactic Acid Calcium Ionized Calcium Phosphorus Magnesium Total Bilirubin AST ALT Alkaline Phosphatase Ammonia Total Creatine Kinase CK-MB (CK-2) CK-MB (CK-2) Rel Index Total Protein Albumin Urine WBC (Auto) Vancomycin Trough Salicylates Acetaminophen Plasma/Serum Alcohol Crossmatch 12/07/19 12/07/19 12/07/19 03:44 03:44 05:53 WBC 16.2 H RBC 2.56 L Hgb 7.1 L Hct 22.3 L MCH RDW 19.4 H Plt Count 782 H Lymph % (Auto) [place] % (Auto) [place] # Baso # Seg Neutrophils % Seg Neuts % (Manual) Lymphocytes % (Manual) Monocytes % (Manual) Seg Neutrophils # Seg Neutrophils # Man Lymphocytes # (Manual) Monocytes # (Manual) Eosinophils # (Manual) Basophils # (Manual) PT INR APTT ABG pH ABG pO2 ABG HCO3 ABG O2 Saturation ABG Base Excess ABG Hemoglobin Oxyhemoglobin Sodium Potassium Chloride 95.6 L Carbon Dioxide BUN 56 H Creatinine 1.4 H Glucose 120 H POC Glucose 128 H Lactic Acid Calcium 10.3 H Ionized Calcium Phosphorus Magnesium Total Bilirubin AST ALT Alkaline Phosphatase Ammonia Total Creatine Kinase CK-MB (CK-2) CK-MB (CK-2) Rel Index Total Protein Albumin Urine WBC (Auto) Vancomycin Trough Salicylates Acetaminophen Plasma/Serum Alcohol Crossmatch 12/07/19 12/07/19 12/08/19 12:54 23:47 00:20 WBC RBC Hgb Hct MCH RDW Plt Count Lymph % (Auto) [place] % (Auto) [place] # Baso # Seg Neutrophils % Seg Neuts % (Manual) Lymphocytes % (Manual) Monocytes % (Manual) Seg Neutrophils # Seg Neutrophils # Man Lymphocytes # (Manual) Monocytes # (Manual) Eosinophils # (Manual) Basophils # (Manual) PT INR APTT ABG pH ABG pO2 ABG HCO3 ABG O2 Saturation ABG Base Excess ABG Hemoglobin Oxyhemoglobin Sodium Potassium Chloride Carbon Dioxide BUN Creatinine Glucose POC Glucose 128 H 130 H 124 H Lactic Acid Calcium Ionized Calcium Phosphorus Magnesium Total Bilirubin AST ALT Alkaline Phosphatase Ammonia Total Creatine Kinase CK-MB (CK-2) CK-MB (CK-2) Rel Index Total Protein Albumin Urine WBC (Auto) Vancomycin Trough Salicylates Acetaminophen Plasma/Serum Alcohol Crossmatch 12/08/19 12/08/19 12/08/19 06:38 12:04 18:26 WBC RBC Hgb Hct MCH RDW Plt Count Lymph % (Auto) [place] % (Auto) [place] # Baso # Seg Neutrophils % Seg Neuts % (Manual) Lymphocytes % (Manual) Monocytes % (Manual) Seg Neutrophils # Seg Neutrophils # Man Lymphocytes # (Manual) Monocytes # (Manual) Eosinophils # (Manual) Basophils # (Manual) PT INR APTT ABG pH ABG pO2 ABG HCO3 ABG O2 Saturation ABG Base Excess ABG Hemoglobin Oxyhemoglobin Sodium Potassium Chloride Carbon Dioxide BUN Creatinine Glucose POC Glucose 137 H 129 H 150 H Lactic Acid Calcium Ionized Calcium Phosphorus Magnesium Total Bilirubin AST ALT Alkaline Phosphatase Ammonia Total Creatine Kinase CK-MB (CK-2) CK-MB (CK-2) Rel Index Total Protein Albumin Urine WBC (Auto) Vancomycin Trough Salicylates Acetaminophen Plasma/Serum Alcohol Crossmatch 12/09/19 12/09/19 12/09/19 00:56 05:34 06:13 WBC RBC Hgb Hct MCH RDW Plt Count Lymph % (Auto) [place] % (Auto) [place] # Baso # Seg Neutrophils % Seg Neuts % (Manual) Lymphocytes % (Manual) Monocytes % (Manual) Seg Neutrophils # Seg Neutrophils # Man Lymphocytes # (Manual) Monocytes # (Manual) Eosinophils # (Manual) Basophils # (Manual) PT INR APTT ABG pH ABG pO2 ABG HCO3 ABG O2 Saturation ABG Base Excess ABG Hemoglobin Oxyhemoglobin Sodium 146 H Potassium Chloride Carbon Dioxide BUN 66 H Creatinine 1.9 H Glucose 116 H POC Glucose 130 H 130 H Lactic Acid Calcium Ionized Calcium Phosphorus Magnesium Total Bilirubin AST ALT Alkaline Phosphatase Ammonia Total Creatine Kinase CK-MB (CK-2) CK-MB (CK-2) Rel Index Total Protein Albumin Urine WBC (Auto) Vancomycin Trough Salicylates Acetaminophen Plasma/Serum Alcohol Crossmatch 12/09/19 12/09/19 12/10/19 11:52 17:50 00:14 WBC RBC Hgb Hct MCH RDW Plt Count Lymph % (Auto) [place] % (Auto) [place] # Baso # Seg Neutrophils % Seg Neuts % (Manual) Lymphocytes % (Manual) Monocytes % (Manual) Seg Neutrophils # Seg Neutrophils # Man Lymphocytes # (Manual) Monocytes # (Manual) Eosinophils # (Manual) Basophils # (Manual) PT INR APTT ABG pH ABG pO2 ABG HCO3 ABG O2 Saturation ABG Base Excess ABG Hemoglobin Oxyhemoglobin Sodium Potassium Chloride Carbon Dioxide BUN Creatinine Glucose POC Glucose 135 H 120 H 116 H Lactic Acid Calcium Ionized Calcium Phosphorus Magnesium Total Bilirubin AST ALT Alkaline Phosphatase Ammonia Total Creatine Kinase CK-MB (CK-2) CK-MB (CK-2) Rel Index Total Protein Albumin Urine WBC (Auto) Vancomycin Trough Salicylates Acetaminophen Plasma/Serum Alcohol Crossmatch 12/10/19 12/10/19 12/10/19 05:38 11:38 17:34 WBC RBC Hgb Hct MCH RDW Plt Count Lymph % (Auto) [place] % (Auto) [place] # Baso # Seg Neutrophils % Seg Neuts % (Manual) Lymphocytes % (Manual) Monocytes % (Manual) Seg Neutrophils # Seg Neutrophils # Man Lymphocytes # (Manual) Monocytes # (Manual) Eosinophils # (Manual) Basophils # (Manual) PT INR APTT ABG pH ABG pO2 ABG HCO3 ABG O2 Saturation ABG Base Excess ABG Hemoglobin Oxyhemoglobin Sodium Potassium Chloride Carbon Dioxide BUN Creatinine Glucose POC Glucose 115 H 112 H 130 H Lactic Acid Calcium Ionized Calcium Phosphorus Magnesium Total Bilirubin AST ALT Alkaline Phosphatase Ammonia Total Creatine Kinase CK-MB (CK-2) CK-MB (CK-2) Rel Index Total Protein Albumin Urine WBC (Auto) Vancomycin Trough Salicylates Acetaminophen Plasma/Serum Alcohol Crossmatch 12/11/19 12/11/19 12/11/19 00:20 05:31 12:22 WBC RBC Hgb Hct MCH RDW Plt Count Lymph % (Auto) [place] % (Auto) [place] # Baso # Seg Neutrophils % Seg Neuts % (Manual) Lymphocytes % (Manual) Monocytes % (Manual) Seg Neutrophils # Seg Neutrophils # Man Lymphocytes # (Manual) Monocytes # (Manual) Eosinophils # (Manual) Basophils # (Manual) PT INR APTT ABG pH ABG pO2 ABG HCO3 ABG O2 Saturation ABG Base Excess ABG Hemoglobin Oxyhemoglobin Sodium Potassium Chloride Carbon Dioxide BUN Creatinine Glucose POC Glucose 124 H 132 H 128 H Lactic Acid Calcium Ionized Calcium Phosphorus Magnesium Total Bilirubin AST ALT Alkaline Phosphatase Ammonia Total Creatine Kinase CK-MB (CK-2) CK-MB (CK-2) Rel Index Total Protein Albumin Urine WBC (Auto) Vancomycin Trough Salicylates Acetaminophen Plasma/Serum Alcohol Crossmatch 12/11/19 12/11/19 12/12/19 18:04 23:42 03:51 WBC RBC Hgb Hct MCH RDW Plt Count Lymph % (Auto) [place] % (Auto) [place] # Baso # Seg Neutrophils % Seg Neuts % (Manual) Lymphocytes % (Manual) Monocytes % (Manual) Seg Neutrophils # Seg Neutrophils # Man Lymphocytes # (Manual) Monocytes # (Manual) Eosinophils # (Manual) Basophils # (Manual) PT INR APTT ABG pH ABG pO2 ABG HCO3 ABG O2 Saturation ABG Base Excess ABG Hemoglobin Oxyhemoglobin Sodium 149 H Potassium Chloride Carbon Dioxide 20 L D BUN 77 H Creatinine 2.8 H Glucose POC Glucose 133 H 154 H Lactic Acid Calcium Ionized Calcium Phosphorus Magnesium Total Bilirubin AST ALT Alkaline Phosphatase Ammonia Total Creatine Kinase CK-MB (CK-2) CK-MB (CK-2) Rel Index Total Protein Albumin Urine WBC (Auto) Vancomycin Trough Salicylates Acetaminophen Plasma/Serum Alcohol Crossmatch 12/12/19 12/12/19 12/12/19 05:18 05:26 10:30 WBC 18.0 H RBC 2.51 L Hgb 6.8 L Hct 22.0 L MCH 27 L RDW 19.9 H Plt Count 582 H Lymph % (Auto) [place] % (Auto) [place] # Baso # Seg Neutrophils % Seg Neuts % (Manual) Lymphocytes % (Manual) Monocytes % (Manual) Seg Neutrophils # Seg Neutrophils # Man Lymphocytes # (Manual) Monocytes # (Manual) Eosinophils # (Manual) Basophils # (Manual) PT INR APTT ABG pH ABG pO2 ABG HCO3 ABG O2 Saturation ABG Base Excess ABG Hemoglobin Oxyhemoglobin Sodium Potassium Chloride Carbon Dioxide BUN Creatinine Glucose POC Glucose 135 H Lactic Acid Calcium Ionized Calcium Phosphorus Magnesium Total Bilirubin AST ALT Alkaline Phosphatase Ammonia Total Creatine Kinase CK-MB (CK-2) CK-MB (CK-2) Rel Index Total Protein Albumin Urine WBC (Auto) Vancomycin Trough Salicylates Acetaminophen Plasma/Serum Alcohol Crossmatch See Detail 12/12/19 12/12/19 12/12/19 11:44 18:10 23:21 WBC RBC Hgb Hct MCH RDW Plt Count Lymph % (Auto) [place] % (Auto) [place] # Baso # Seg Neutrophils % Seg Neuts % (Manual) Lymphocytes % (Manual) Monocytes % (Manual) Seg Neutrophils # Seg Neutrophils # Man Lymphocytes # (Manual) Monocytes # (Manual) Eosinophils # (Manual) Basophils # (Manual) PT INR APTT ABG pH ABG pO2 ABG HCO3 ABG O2 Saturation ABG Base Excess ABG Hemoglobin Oxyhemoglobin Sodium Potassium Chloride Carbon Dioxide BUN Creatinine Glucose POC Glucose 108 H 107 H 126 H Lactic Acid Calcium Ionized Calcium Phosphorus Magnesium Total Bilirubin AST ALT Alkaline Phosphatase Ammonia Total Creatine Kinase CK-MB (CK-2) CK-MB (CK-2) Rel Index Total Protein Albumin Urine WBC (Auto) Vancomycin Trough Salicylates Acetaminophen Plasma/Serum Alcohol Crossmatch 12/13/19 12/13/19 12/13/19 05:41 07:48 07:48 WBC 38.3 H RBC 2.37 L Hgb 6.3 L Hct 20.9 L MCH 27 L RDW 20.2 H Plt Count 546 H Lymph % (Auto) [place] % (Auto) [place] # Baso # Seg Neutrophils % Seg Neuts % (Manual) 93.0 H Lymphocytes % (Manual) 1.0 L Monocytes % (Manual) Seg Neutrophils # Seg Neutrophils # Man 35.6 H Lymphocytes # (Manual) 0.4 L Monocytes # (Manual) Eosinophils # (Manual) Basophils # (Manual) 0.4 H PT INR APTT ABG pH ABG pO2 ABG HCO3 ABG O2 Saturation ABG Base Excess ABG Hemoglobin Oxyhemoglobin Sodium 152 H Potassium 3.1 L D Chloride 111.9 H Carbon Dioxide 21 L BUN 53 H Creatinine 1.9 H Glucose 141 H POC Glucose 128 H Lactic Acid Calcium Ionized Calcium Phosphorus Magnesium Total Bilirubin AST ALT Alkaline Phosphatase 316 H Ammonia Total Creatine Kinase CK-MB (CK-2) CK-MB (CK-2) Rel Index Total Protein Albumin 2.4 L Urine WBC (Auto) Vancomycin Trough Salicylates Acetaminophen Plasma/Serum Alcohol Crossmatch 03/26/20 03/26/20 03/27/20 18:17 23:19 05:36 WBC RBC Hgb Hct MCH RDW Plt Count Lymph % (Auto) [place] % (Auto) [place] # Baso # Seg Neutrophils % Seg Neuts % (Manual) Lymphocytes % (Manual) Monocytes % (Manual) Seg Neutrophils # Seg Neutrophils # Man Lymphocytes # (Manual) Monocytes # (Manual) Eosinophils # (Manual) Basophils # (Manual) PT INR APTT ABG pH ABG pO2 ABG HCO3 ABG O2 Saturation ABG Base Excess ABG Hemoglobin Oxyhemoglobin Sodium Potassium Chloride Carbon Dioxide BUN Creatinine Glucose POC Glucose 141 H 158 H 182 H Lactic Acid Calcium Ionized Calcium Phosphorus Magnesium Total Bilirubin AST ALT Alkaline Phosphatase Ammonia Total Creatine Kinase CK-MB (CK-2) CK-MB (CK-2) Rel Index Total Protein Albumin Urine WBC (Auto) Vancomycin Trough Salicylates Acetaminophen Plasma/Serum Alcohol Crossmatch 12/14/19 12/14/19 12/14/19 08:48 08:48 10:31 WBC 33.3 H RBC 2.70 L Hgb 7.9 L 8.0 L Hct 25.3 L 24.0 L MCH RDW 19.2 H Plt Count 476 H Lymph % (Auto) [place] % (Auto) [place] # Baso # Seg Neutrophils % Seg Neuts % (Manual) Lymphocytes % (Manual) Monocytes % (Manual) Seg Neutrophils # Seg Neutrophils # Man Lymphocytes # (Manual) Monocytes # (Manual) Eosinophils # (Manual) Basophils # (Manual) PT INR APTT ABG pH ABG pO2 ABG HCO3 ABG O2 Saturation ABG Base Excess ABG Hemoglobin Oxyhemoglobin Sodium 153 H Potassium 2.5 L* Chloride 114.9 H Carbon Dioxide 20 L BUN 38 H Creatinine 1.4 H Glucose 177 H POC Glucose Lactic Acid Calcium Ionized Calcium Phosphorus Magnesium Total Bilirubin AST ALT Alkaline Phosphatase Ammonia Total Creatine Kinase CK-MB (CK-2) CK-MB (CK-2) Rel Index Total Protein Albumin Urine WBC (Auto) Vancomycin Trough Salicylates Acetaminophen Plasma/Serum Alcohol Crossmatch 12/14/19 12/14/19 12/14/19 12:57 16:15 17:50 WBC RBC Hgb Hct MCH RDW Plt Count Lymph % (Auto) [place] % (Auto) [place] # Baso # Seg Neutrophils % Seg Neuts % (Manual) Lymphocytes % (Manual) Monocytes % (Manual) Seg Neutrophils # Seg Neutrophils # Man Lymphocytes # (Manual) Monocytes # (Manual) Eosinophils # (Manual) Basophils # (Manual) PT INR APTT ABG pH ABG pO2 73.6 L ABG HCO3 ABG O2 Saturation ABG Base Excess ABG Hemoglobin 7.6 L Oxyhemoglobin 94.0 L Sodium Potassium Chloride Carbon Dioxide BUN Creatinine Glucose POC Glucose 174 H 150 H Lactic Acid Calcium Ionized Calcium Phosphorus Magnesium Total Bilirubin AST ALT Alkaline Phosphatase Ammonia Total Creatine Kinase CK-MB (CK-2) CK-MB (CK-2) Rel Index Total Protein Albumin Urine WBC (Auto) Vancomycin Trough Salicylates Acetaminophen Plasma/Serum Alcohol Crossmatch 12/15/19 12/15/19 12/15/19 00:28 05:27 07:23 WBC 30.0 H RBC 3.11 L Hgb 8.6 L Hct 27.7 L MCH RDW 20.0 H Plt Count 473 H Lymph % (Auto) [place] % (Auto) [place] # Baso # Seg Neutrophils % Seg Neuts % (Manual) Lymphocytes % (Manual) Monocytes % (Manual) Seg Neutrophils # Seg Neutrophils # Man Lymphocytes # (Manual) Monocytes # (Manual) Eosinophils # (Manual) Basophils # (Manual) PT INR APTT ABG pH ABG pO2 ABG HCO3 ABG O2 Saturation ABG Base Excess ABG Hemoglobin Oxyhemoglobin Sodium Potassium Chloride Carbon Dioxide BUN Creatinine Glucose POC Glucose 167 H 148 H Lactic Acid Calcium Ionized Calcium Phosphorus Magnesium Total Bilirubin AST ALT Alkaline Phosphatase Ammonia Total Creatine Kinase CK-MB (CK-2) CK-MB (CK-2) Rel Index Total Protein Albumin Urine WBC (Auto) Vancomycin Trough Salicylates Acetaminophen Plasma/Serum Alcohol Crossmatch 12/15/19 12/15/19 12/15/19 07:23 12:21 17:41 WBC RBC Hgb Hct MCH RDW Plt Count Lymph % (Auto) [place] % (Auto) [place] # Baso # Seg Neutrophils % Seg Neuts % (Manual) Lymphocytes % (Manual) Monocytes % (Manual) Seg Neutrophils # Seg Neutrophils # Man Lymphocytes # (Manual) Monocytes # (Manual) Eosinophils # (Manual) Basophils # (Manual) PT INR APTT ABG pH ABG pO2 ABG HCO3 ABG O2 Saturation ABG Base Excess ABG Hemoglobin Oxyhemoglobin Sodium 147 H Potassium 3.5 L D Chloride 111.2 H Carbon Dioxide 19 L BUN 29 H Creatinine Glucose 126 H POC Glucose 154 H 144 H Lactic Acid Calcium Ionized Calcium Phosphorus Magnesium Total Bilirubin AST ALT Alkaline Phosphatase Ammonia Total Creatine Kinase CK-MB (CK-2) CK-MB (CK-2) Rel Index Total Protein Albumin Urine WBC (Auto) Vancomycin Trough Salicylates Acetaminophen Plasma/Serum Alcohol Crossmatch 12/16/19 12/16/19 12/16/19 00:22 05:30 05:44 WBC 30.8 H RBC 2.58 L Hgb 7.1 L Hct 22.7 L MCH RDW 19.6 H Plt Count 451 H Lymph % (Auto) [place] % (Auto) [place] # Baso # Seg Neutrophils % Seg Neuts % (Manual) Lymphocytes % (Manual) Monocytes % (Manual) Seg Neutrophils # Seg Neutrophils # Man Lymphocytes # (Manual) Monocytes # (Manual) Eosinophils # (Manual) Basophils # (Manual) PT INR APTT ABG pH ABG pO2 ABG HCO3 ABG O2 Saturation ABG Base Excess ABG Hemoglobin Oxyhemoglobin Sodium Potassium Chloride Carbon Dioxide BUN Creatinine Glucose POC Glucose 139 H 126 H Lactic Acid Calcium Ionized Calcium Phosphorus Magnesium Total Bilirubin AST ALT Alkaline Phosphatase Ammonia Total Creatine Kinase CK-MB (CK-2) CK-MB (CK-2) Rel Index Total Protein Albumin Urine WBC (Auto) Vancomycin Trough Salicylates Acetaminophen Plasma/Serum Alcohol Crossmatch 12/16/19 12/16/19 12/16/19 05:44 11:48 17:37 WBC RBC Hgb Hct MCH RDW Plt Count Lymph % (Auto) [place] % (Auto) [place] # Baso # Seg Neutrophils % Seg Neuts % (Manual) Lymphocytes % (Manual) Monocytes % (Manual) Seg Neutrophils # Seg Neutrophils # Man Lymphocytes # (Manual) Monocytes # (Manual) Eosinophils # (Manual) Basophils # (Manual) PT INR APTT ABG pH ABG pO2 ABG HCO3 ABG O2 Saturation ABG Base Excess ABG Hemoglobin Oxyhemoglobin Sodium Potassium 3.4 L Chloride 109.2 H Carbon Dioxide 19 L BUN 27 H Creatinine Glucose 124 H POC Glucose 125 H 148 H Lactic Acid Calcium Ionized Calcium Phosphorus Magnesium Total Bilirubin AST ALT Alkaline Phosphatase Ammonia Total Creatine Kinase CK-MB (CK-2) CK-MB (CK-2) Rel Index Total Protein Albumin Urine WBC (Auto) Vancomycin Trough Salicylates Acetaminophen Plasma/Serum Alcohol Crossmatch 12/16/19 12/17/19 12/17/19 23:43 05:28 12:47 WBC RBC Hgb Hct MCH RDW Plt Count Lymph % (Auto) [place] % (Auto) [place] # Baso # Seg Neutrophils % Seg Neuts % (Manual) Lymphocytes % (Manual) Monocytes % (Manual) Seg Neutrophils # Seg Neutrophils # Man Lymphocytes # (Manual) Monocytes # (Manual) Eosinophils # (Manual) Basophils # (Manual) PT INR APTT ABG pH ABG pO2 ABG HCO3 ABG O2 Saturation ABG Base Excess ABG Hemoglobin Oxyhemoglobin Sodium Potassium Chloride Carbon Dioxide BUN Creatinine Glucose POC Glucose 142 H 140 H 125 H Lactic Acid Calcium Ionized Calcium Phosphorus Magnesium Total Bilirubin AST ALT Alkaline Phosphatase Ammonia Total Creatine Kinase CK-MB (CK-2) CK-MB (CK-2) Rel Index Total Protein Albumin Urine WBC (Auto) Vancomycin Trough Salicylates Acetaminophen Plasma/Serum Alcohol Crossmatch 12/17/19 12/17/19 12/17/19 17:05 18:00 Unknown WBC RBC Hgb Hct MCH RDW Plt Count Lymph % (Auto) [place] % (Auto) [place] # Baso # Seg Neutrophils % Seg Neuts % (Manual) Lymphocytes % (Manual) Monocytes % (Manual) Seg Neutrophils # Seg Neutrophils # Man Lymphocytes # (Manual) Monocytes # (Manual) Eosinophils # (Manual) Basophils # (Manual) PT INR APTT ABG pH ABG pO2 68.1 L ABG HCO3 ABG O2 Saturation 93.7 L ABG Base Excess ABG Hemoglobin 5.0 L Oxyhemoglobin 91.7 L Sodium Potassium Chloride Carbon Dioxide BUN Creatinine Glucose POC Glucose 140 H Lactic Acid Calcium Ionized Calcium Phosphorus Magnesium Total Bilirubin AST ALT Alkaline Phosphatase Ammonia Total Creatine Kinase CK-MB (CK-2) CK-MB (CK-2) Rel Index Total Protein Albumin Urine WBC (Auto) Vancomycin Trough Salicylates Acetaminophen Plasma/Serum Alcohol Crossmatch 12/18/19 12/18/19 12/18/19 00:16 04:53 04:53 WBC 28.6 H RBC 2.27 L Hgb 6.3 L Hct 19.5 L* MCH RDW 20.0 H Plt Count 497 H Lymph % (Auto) [place] % (Auto) [place] # Baso # Seg Neutrophils % Seg Neuts % (Manual) Lymphocytes % (Manual) Monocytes % (Manual) Seg Neutrophils # Seg Neutrophils # Man Lymphocytes # (Manual) Monocytes # (Manual) Eosinophils # (Manual) Basophils # (Manual) PT INR APTT ABG pH ABG pO2 ABG HCO3 ABG O2 Saturation ABG Base Excess ABG Hemoglobin Oxyhemoglobin Sodium Potassium Chloride 107.9 H Carbon Dioxide 20 L BUN 27 H Creatinine 0.6 L Glucose 116 H POC Glucose 123 H Lactic Acid Calcium Ionized Calcium Phosphorus Magnesium Total Bilirubin AST ALT Alkaline Phosphatase Ammonia Total Creatine Kinase CK-MB (CK-2) CK-MB (CK-2) Rel Index Total Protein Albumin Urine WBC (Auto) Vancomycin Trough Salicylates Acetaminophen Plasma/Serum Alcohol Crossmatch 12/18/19 12/18/19 12/18/19 06:38 11:22 12:08 WBC RBC Hgb Hct MCH RDW Plt Count Lymph % (Auto) [place] % (Auto) [place] # Baso # Seg Neutrophils % Seg Neuts % (Manual) Lymphocytes % (Manual) Monocytes % (Manual) Seg Neutrophils # Seg Neutrophils # Man Lymphocytes # (Manual) Monocytes # (Manual) Eosinophils # (Manual) Basophils # (Manual) PT INR APTT ABG pH ABG pO2 ABG HCO3 ABG O2 Saturation ABG Base Excess ABG Hemoglobin Oxyhemoglobin Sodium Potassium Chloride Carbon Dioxide BUN Creatinine Glucose POC Glucose 120 H 127 H Lactic Acid Calcium Ionized Calcium Phosphorus Magnesium Total Bilirubin AST ALT Alkaline Phosphatase Ammonia Total Creatine Kinase CK-MB (CK-2) CK-MB (CK-2) Rel Index Total Protein Albumin Urine WBC (Auto) Vancomycin Trough Salicylates Acetaminophen Plasma/Serum Alcohol Crossmatch See Detail 12/18/19 12/18/19 12/18/19 14:05 17:49 23:53 WBC RBC Hgb Hct MCH RDW Plt Count Lymph % (Auto) [place] % (Auto) [place] # Baso # Seg Neutrophils % Seg Neuts % (Manual) Lymphocytes % (Manual) Monocytes % (Manual) Seg Neutrophils # Seg Neutrophils # Man Lymphocytes # (Manual) Monocytes # (Manual) Eosinophils # (Manual) Basophils # (Manual) PT INR APTT ABG pH 7.267 L ABG pO2 69.8 L ABG HCO3 ABG O2 Saturation 88.4 L ABG Base Excess ABG Hemoglobin 7.1 L Oxyhemoglobin 86.4 L Sodium Potassium Chloride Carbon Dioxide BUN Creatinine Glucose POC Glucose 157 H 128 H Lactic Acid Calcium Ionized Calcium Phosphorus Magnesium Total Bilirubin AST ALT Alkaline Phosphatase Ammonia Total Creatine Kinase CK-MB (CK-2) CK-MB (CK-2) Rel Index Total Protein Albumin Urine WBC (Auto) Vancomycin Trough Salicylates Acetaminophen Plasma/Serum Alcohol Crossmatch 12/19/19 12/19/19 12/19/19 03:37 03:37 05:25 WBC 31.3 H RBC 2.60 L Hgb 7.6 L Hct 23.0 L MCH RDW 19.4 H Plt Count 530 H Lymph % (Auto) [place] % (Auto) [place] # Baso # Seg Neutrophils % Seg Neuts % (Manual) Lymphocytes % (Manual) Monocytes % (Manual) Seg Neutrophils # Seg Neutrophils # Man Lymphocytes # (Manual) Monocytes # (Manual) Eosinophils # (Manual) Basophils # (Manual) PT INR APTT ABG pH ABG pO2 ABG HCO3 ABG O2 Saturation ABG Base Excess ABG Hemoglobin Oxyhemoglobin Sodium Potassium Chloride Carbon Dioxide 18 L BUN 36 H Creatinine Glucose 111 H POC Glucose 123 H Lactic Acid Calcium Ionized Calcium Phosphorus Magnesium Total Bilirubin AST ALT Alkaline Phosphatase Ammonia Total Creatine Kinase CK-MB (CK-2) CK-MB (CK-2) Rel Index Total Protein Albumin Urine WBC (Auto) Vancomycin Trough Salicylates Acetaminophen Plasma/Serum Alcohol Crossmatch 12/19/19 12/19/19 12/20/19 12:59 18:33 00:00 WBC RBC Hgb Hct MCH RDW Plt Count Lymph % (Auto) [place] % (Auto) [place] # Baso # Seg Neutrophils % Seg Neuts % (Manual) Lymphocytes % (Manual) Monocytes % (Manual) Seg Neutrophils # Seg Neutrophils # Man Lymphocytes # (Manual) Monocytes # (Manual) Eosinophils # (Manual) Basophils # (Manual) PT INR APTT ABG pH ABG pO2 ABG HCO3 ABG O2 Saturation ABG Base Excess ABG Hemoglobin Oxyhemoglobin Sodium Potassium Chloride Carbon Dioxide BUN Creatinine Glucose POC Glucose 130 H 118 H 135 H Lactic Acid Calcium Ionized Calcium Phosphorus Magnesium Total Bilirubin AST ALT Alkaline Phosphatase Ammonia Total Creatine Kinase CK-MB (CK-2) CK-MB (CK-2) Rel Index Total Protein Albumin Urine WBC (Auto) Vancomycin Trough Salicylates Acetaminophen Plasma/Serum Alcohol Crossmatch 12/20/19 12/20/19 12/20/19 05:46 12:31 18:07 WBC RBC Hgb Hct MCH RDW Plt Count Lymph % (Auto) [place] % (Auto) [place] # Baso # Seg Neutrophils % Seg Neuts % (Manual) Lymphocytes % (Manual) Monocytes % (Manual) Seg Neutrophils # Seg Neutrophils # Man Lymphocytes # (Manual) Monocytes # (Manual) Eosinophils # (Manual) Basophils # (Manual) PT INR APTT ABG pH ABG pO2 ABG HCO3 ABG O2 Saturation ABG Base Excess ABG Hemoglobin Oxyhemoglobin Sodium Potassium Chloride Carbon Dioxide BUN Creatinine Glucose POC Glucose 131 H 128 H 134 H Lactic Acid Calcium Ionized Calcium Phosphorus Magnesium Total Bilirubin AST ALT Alkaline Phosphatase Ammonia Total Creatine Kinase CK-MB (CK-2) CK-MB (CK-2) Rel Index Total Protein Albumin Urine WBC (Auto) Vancomycin Trough Salicylates Acetaminophen Plasma/Serum Alcohol Crossmatch 12/21/19 12/21/19 12/21/19 03:28 03:28 07:21 WBC 29.4 H RBC 2.30 L Hgb 6.8 L Hct 20.2 L MCH RDW 20.2 H Plt Count 746 H Lymph % (Auto) [place] % (Auto) [place] # Baso # Seg Neutrophils % Seg Neuts % (Manual) 85.0 H Lymphocytes % (Manual) 8.0 L Monocytes % (Manual) Seg Neutrophils # Seg Neutrophils # Man 25.0 H Lymphocytes # (Manual) Monocytes # (Manual) 1.5 H Eosinophils # (Manual) 0.6 H Basophils # (Manual) PT INR APTT ABG pH ABG pO2 ABG HCO3 ABG O2 Saturation ABG Base Excess ABG Hemoglobin Oxyhemoglobin Sodium Potassium Chloride Carbon Dioxide 17 L BUN 57 H Creatinine 1.4 H D Glucose POC Glucose 124 H Lactic Acid Calcium Ionized Calcium Phosphorus Magnesium Total Bilirubin AST ALT Alkaline Phosphatase Ammonia Total Creatine Kinase CK-MB (CK-2) CK-MB (CK-2) Rel Index Total Protein Albumin Urine WBC (Auto) Vancomycin Trough Salicylates Acetaminophen Plasma/Serum Alcohol Crossmatch 12/21/19 12/21/19 12/21/19 08:56 12:06 14:53 WBC RBC Hgb 7.2 L Hct 22.9 L MCH RDW Plt Count Lymph % (Auto) [place] % (Auto) [place] # Baso # Seg Neutrophils % Seg Neuts % (Manual) Lymphocytes % (Manual) Monocytes % (Manual) Seg Neutrophils # Seg Neutrophils # Man Lymphocytes # (Manual) Monocytes # (Manual) Eosinophils # (Manual) Basophils # (Manual) PT INR APTT ABG pH ABG pO2 ABG HCO3 ABG O2 Saturation ABG Base Excess ABG Hemoglobin Oxyhemoglobin Sodium Potassium Chloride Carbon Dioxide BUN Creatinine Glucose POC Glucose 116 H Lactic Acid Calcium Ionized Calcium Phosphorus Magnesium Total Bilirubin AST ALT Alkaline Phosphatase Ammonia Total Creatine Kinase CK-MB (CK-2) CK-MB (CK-2) Rel Index Total Protein Albumin Urine WBC (Auto) Vancomycin Trough 33.8 H Salicylates Acetaminophen Plasma/Serum Alcohol Crossmatch 12/21/19 12/21/19 12/21/19 14:54 17:27 23:49 WBC RBC Hgb Hct MCH RDW Plt Count Lymph % (Auto) [place] % (Auto) [place] # Baso # Seg Neutrophils % Seg Neuts % (Manual) Lymphocytes % (Manual) Monocytes % (Manual) Seg Neutrophils # Seg Neutrophils # Man Lymphocytes # (Manual) Monocytes # (Manual) Eosinophils # (Manual) Basophils # (Manual) PT INR APTT ABG pH ABG pO2 ABG HCO3 ABG O2 Saturation ABG Base Excess ABG Hemoglobin Oxyhemoglobin Sodium Potassium Chloride Carbon Dioxide BUN Creatinine Glucose POC Glucose 145 H 127 H Lactic Acid Calcium Ionized Calcium Phosphorus Magnesium Total Bilirubin AST ALT Alkaline Phosphatase Ammonia Total Creatine Kinase CK-MB (CK-2) CK-MB (CK-2) Rel Index Total Protein Albumin Urine WBC (Auto) Vancomycin Trough Salicylates Acetaminophen Plasma/Serum Alcohol Crossmatch See Detail 12/22/19 12/22/19 12/22/19 04:43 05:56 08:40 WBC RBC Hgb Hct MCH RDW Plt Count Lymph % (Auto) [place] % (Auto) [place] # Baso # Seg Neutrophils % Seg Neuts % (Manual) Lymphocytes % (Manual) Monocytes % (Manual) Seg Neutrophils # Seg Neutrophils # Man Lymphocytes # (Manual) Monocytes # (Manual) Eosinophils # (Manual) Basophils # (Manual) PT INR APTT ABG pH ABG pO2 75.6 L ABG HCO3 ABG O2 Saturation ABG Base Excess -2.6 L ABG Hemoglobin 6.8 L Oxyhemoglobin 94.6 L Sodium Potassium Chloride Carbon Dioxide 17 L BUN 60 H Creatinine 1.4 H Glucose 126 H POC Glucose 153 H Lactic Acid Calcium Ionized Calcium Phosphorus Magnesium Total Bilirubin AST ALT Alkaline Phosphatase Ammonia Total Creatine Kinase CK-MB (CK-2) CK-MB (CK-2) Rel Index Total Protein Albumin Urine WBC (Auto) Vancomycin Trough Salicylates Acetaminophen Plasma/Serum Alcohol Crossmatch 12/22/19 12/22/19 12/23/19 12:07 17:49 04:30 WBC 22.4 H RBC 2.68 L Hgb 7.6 L Hct 22.9 L MCH RDW 19.9 H Plt Count 998 H Lymph % (Auto) [place] % (Auto) [place] # Baso # Seg Neutrophils % Seg Neuts % (Manual) 88.0 H Lymphocytes % (Manual) 2.0 L Monocytes % (Manual) 9.0 H Seg Neutrophils # Seg Neutrophils # Man 19.7 H Lymphocytes # (Manual) 0.4 L Monocytes # (Manual) 2.0 H Eosinophils # (Manual) Basophils # (Manual) PT INR APTT ABG pH ABG pO2 ABG HCO3 ABG O2 Saturation ABG Base Excess ABG Hemoglobin Oxyhemoglobin Sodium Potassium Chloride Carbon Dioxide BUN Creatinine Glucose POC Glucose 140 H 116 H Lactic Acid Calcium Ionized Calcium Phosphorus Magnesium Total Bilirubin AST ALT Alkaline Phosphatase Ammonia Total Creatine Kinase CK-MB (CK-2) CK-MB (CK-2) Rel Index Total Protein Albumin Urine WBC (Auto) Vancomycin Trough Salicylates Acetaminophen Plasma/Serum Alcohol Crossmatch 12/23/19 12/23/19 12/23/19 04:30 12:00 18:06 WBC RBC Hgb Hct MCH RDW Plt Count Lymph % (Auto) [place] % (Auto) [place] # Baso # Seg Neutrophils % Seg Neuts % (Manual) Lymphocytes % (Manual) Monocytes % (Manual) Seg Neutrophils # Seg Neutrophils # Man Lymphocytes # (Manual) Monocytes # (Manual) Eosinophils # (Manual) Basophils # (Manual) PT INR APTT ABG pH ABG pO2 ABG HCO3 ABG O2 Saturation ABG Base Excess ABG Hemoglobin Oxyhemoglobin Sodium Potassium 5.2 H Chloride Carbon Dioxide 21 L BUN 69 H Creatinine 1.5 H Glucose 117 H POC Glucose 128 H 138 H Lactic Acid Calcium Ionized Calcium Phosphorus Magnesium Total Bilirubin AST ALT Alkaline Phosphatase Ammonia Total Creatine Kinase CK-MB (CK-2) CK-MB (CK-2) Rel Index Total Protein Albumin Urine WBC (Auto) Vancomycin Trough Salicylates Acetaminophen Plasma/Serum Alcohol Crossmatch 12/23/19 12/24/19 12/24/19 23:46 04:31 05:08 WBC RBC Hgb Hct MCH RDW Plt Count Lymph % (Auto) [place] % (Auto) [place] # Baso # Seg Neutrophils % Seg Neuts % (Manual) Lymphocytes % (Manual) Monocytes % (Manual) Seg Neutrophils # Seg Neutrophils # Man Lymphocytes # (Manual) Monocytes # (Manual) Eosinophils # (Manual) Basophils # (Manual) PT INR APTT ABG pH ABG pO2 ABG HCO3 ABG O2 Saturation ABG Base Excess ABG Hemoglobin Oxyhemoglobin Sodium Potassium 5.3 H Chloride 107.6 H Carbon Dioxide 20 L BUN 72 H Creatinine 1.6 H Glucose 120 H POC Glucose 120 H 140 H Lactic Acid Calcium Ionized Calcium Phosphorus Magnesium Total Bilirubin AST ALT Alkaline Phosphatase Ammonia Total Creatine Kinase CK-MB (CK-2) CK-MB (CK-2) Rel Index Total Protein Albumin Urine WBC (Auto) Vancomycin Trough Salicylates Acetaminophen Plasma/Serum Alcohol Crossmatch 12/24/19 12/24/19 12/25/19 11:58 17:49 03:47 WBC 36.2 H RBC 2.92 L Hgb 8.4 L Hct 26.1 L MCH RDW 20.2 H Plt Count 942 H Lymph % (Auto) [place] % (Auto) [place] # Baso # Seg Neutrophils % Seg Neuts % (Manual) 97.5 H Lymphocytes % (Manual) 1.0 L Monocytes % (Manual) Seg Neutrophils # Seg Neutrophils # Man 35.3 H Lymphocytes # (Manual) 0.4 L Monocytes # (Manual) Eosinophils # (Manual) Basophils # (Manual) PT INR APTT ABG pH ABG pO2 ABG HCO3 ABG O2 Saturation ABG Base Excess ABG Hemoglobin Oxyhemoglobin Sodium Potassium Chloride Carbon Dioxide BUN Creatinine Glucose POC Glucose 146 H 131 H Lactic Acid Calcium Ionized Calcium Phosphorus Magnesium Total Bilirubin AST ALT Alkaline Phosphatase Ammonia Total Creatine Kinase CK-MB (CK-2) CK-MB (CK-2) Rel Index Total Protein Albumin Urine WBC (Auto) Vancomycin Trough Salicylates Acetaminophen Plasma/Serum Alcohol Crossmatch 12/25/19 12/25/19 12/25/19 03:47 05:30 12:23 WBC RBC Hgb Hct MCH RDW Plt Count Lymph % (Auto) [place] % (Auto) [place] # Baso # Seg Neutrophils % Seg Neuts % (Manual) Lymphocytes % (Manual) Monocytes % (Manual) Seg Neutrophils # Seg Neutrophils # Man Lymphocytes # (Manual) Monocytes # (Manual) Eosinophils # (Manual) Basophils # (Manual) PT INR APTT ABG pH ABG pO2 ABG HCO3 ABG O2 Saturation ABG Base Excess ABG Hemoglobin Oxyhemoglobin Sodium Potassium Chloride Carbon Dioxide 15 L BUN 70 H Creatinine 1.7 H Glucose 153 H POC Glucose 169 H 135 H Lactic Acid Calcium Ionized Calcium Phosphorus Magnesium Total Bilirubin AST ALT Alkaline Phosphatase Ammonia Total Creatine Kinase CK-MB (CK-2) CK-MB (CK-2) Rel Index Total Protein Albumin Urine WBC (Auto) Vancomycin Trough Salicylates Acetaminophen Plasma/Serum Alcohol Crossmatch 12/25/19 12/25/19 12/26/19 17:37 23:29 09:47 WBC 22.1 H RBC 2.83 L Hgb 7.9 L Hct 25.5 L MCH RDW 20.0 H Plt Count 894 H Lymph % (Auto) [place] % (Auto) [place] # Baso # Seg Neutrophils % Seg Neuts % (Manual) Lymphocytes % (Manual) Monocytes % (Manual) Seg Neutrophils # Seg Neutrophils # Man Lymphocytes # (Manual) Monocytes # (Manual) Eosinophils # (Manual) Basophils # (Manual) PT INR APTT ABG pH ABG pO2 ABG HCO3 ABG O2 Saturation ABG Base Excess ABG Hemoglobin Oxyhemoglobin Sodium Potassium Chloride Carbon Dioxide BUN Creatinine Glucose POC Glucose 120 H 140 H Lactic Acid Calcium Ionized Calcium Phosphorus Magnesium Total Bilirubin AST ALT Alkaline Phosphatase Ammonia Total Creatine Kinase CK-MB (CK-2) CK-MB (CK-2) Rel Index Total Protein Albumin Urine WBC (Auto) Vancomycin Trough Salicylates Acetaminophen Plasma/Serum Alcohol Crossmatch 12/26/19 12/26/19 12/26/19 09:47 11:46 17:52 WBC RBC Hgb Hct MCH RDW Plt Count Lymph % (Auto) [place] % (Auto) [place] # Baso # Seg Neutrophils % Seg Neuts % (Manual) Lymphocytes % (Manual) Monocytes % (Manual) Seg Neutrophils # Seg Neutrophils # Man Lymphocytes # (Manual) Monocytes # (Manual) Eosinophils # (Manual) Basophils # (Manual) PT INR APTT ABG pH ABG pO2 ABG HCO3 ABG O2 Saturation ABG Base Excess ABG Hemoglobin Oxyhemoglobin Sodium Potassium Chloride Carbon Dioxide 18 L BUN 65 H Creatinine 1.4 H Glucose 132 H POC Glucose 110 H 145 H Lactic Acid Calcium Ionized Calcium Phosphorus Magnesium Total Bilirubin AST ALT Alkaline Phosphatase Ammonia Total Creatine Kinase CK-MB (CK-2) CK-MB (CK-2) Rel Index Total Protein Albumin Urine WBC (Auto) Vancomycin Trough Salicylates Acetaminophen Plasma/Serum Alcohol Crossmatch 12/27/19 12/27/19 12/27/19 00:01 03:42 03:42 WBC 18.0 H RBC 2.86 L Hgb 8.0 L Hct 25.2 L MCH RDW 19.2 H Plt Count 873 H Lymph % (Auto) 8.4 L [place] % (Auto) 7.5 H [place] # 1.4 H Baso # 0.2 H Seg Neutrophils % 82.2 H Seg Neuts % (Manual) Lymphocytes % (Manual) Monocytes % (Manual) Seg Neutrophils # 14.8 H Seg Neutrophils # Man Lymphocytes # (Manual) Monocytes # (Manual) Eosinophils # (Manual) Basophils # (Manual) PT INR APTT ABG pH ABG pO2 ABG HCO3 ABG O2 Saturation ABG Base Excess ABG Hemoglobin Oxyhemoglobin Sodium Potassium Chloride Carbon Dioxide BUN 73 H Creatinine 1.4 H Glucose 119 H POC Glucose 124 H Lactic Acid Calcium Ionized Calcium Phosphorus Magnesium Total Bilirubin AST ALT Alkaline Phosphatase Ammonia Total Creatine Kinase CK-MB (CK-2) CK-MB (CK-2) Rel Index Total Protein Albumin Urine WBC (Auto) Vancomycin Trough Salicylates Acetaminophen Plasma/Serum Alcohol Crossmatch 12/27/19 12/27/19 12/27/19 05:45 11:45 17:29 WBC RBC Hgb Hct MCH RDW Plt Count Lymph % (Auto) [place] % (Auto) [place] # Baso # Seg Neutrophils % Seg Neuts % (Manual) Lymphocytes % (Manual) Monocytes % (Manual) Seg Neutrophils # Seg Neutrophils # Man Lymphocytes # (Manual) Monocytes # (Manual) Eosinophils # (Manual) Basophils # (Manual) PT INR APTT ABG pH ABG pO2 ABG HCO3 ABG O2 Saturation ABG Base Excess ABG Hemoglobin Oxyhemoglobin Sodium Potassium Chloride Carbon Dioxide BUN Creatinine Glucose POC Glucose 131 H 123 H 134 H Lactic Acid Calcium Ionized Calcium Phosphorus Magnesium Total Bilirubin AST ALT Alkaline Phosphatase Ammonia Total Creatine Kinase CK-MB (CK-2) CK-MB (CK-2) Rel Index Total Protein Albumin Urine WBC (Auto) Vancomycin Trough Salicylates Acetaminophen Plasma/Serum Alcohol Crossmatch 12/28/19 12/28/19 12/28/19 00:12 05:14 11:53 WBC RBC Hgb Hct MCH RDW Plt Count Lymph % (Auto) [place] % (Auto) [place] # Baso # Seg Neutrophils % Seg Neuts % (Manual) Lymphocytes % (Manual) Monocytes % (Manual) Seg Neutrophils # Seg Neutrophils # Man Lymphocytes # (Manual) Monocytes # (Manual) Eosinophils # (Manual) Basophils # (Manual) PT INR APTT ABG pH ABG pO2 ABG HCO3 ABG O2 Saturation ABG Base Excess ABG Hemoglobin Oxyhemoglobin Sodium Potassium Chloride Carbon Dioxide BUN Creatinine Glucose POC Glucose 138 H 130 H 146 H Lactic Acid Calcium Ionized Calcium Phosphorus Magnesium Total Bilirubin AST ALT Alkaline Phosphatase Ammonia Total Creatine Kinase CK-MB (CK-2) CK-MB (CK-2) Rel Index Total Protein Albumin Urine WBC (Auto) Vancomycin Trough Salicylates Acetaminophen Plasma/Serum Alcohol Crossmatch 12/28/19 12/29/19 12/29/19 17:39 00:01 18:11 WBC RBC Hgb Hct MCH RDW Plt Count Lymph % (Auto) [place] % (Auto) [place] # Baso # Seg Neutrophils % Seg Neuts % (Manual) Lymphocytes % (Manual) Monocytes % (Manual) Seg Neutrophils # Seg Neutrophils # Man Lymphocytes # (Manual) Monocytes # (Manual) Eosinophils # (Manual) Basophils # (Manual) PT INR APTT ABG pH ABG pO2 ABG HCO3 ABG O2 Saturation ABG Base Excess ABG Hemoglobin Oxyhemoglobin Sodium Potassium Chloride Carbon Dioxide BUN Creatinine Glucose POC Glucose 117 H 139 H 130 H Lactic Acid Calcium Ionized Calcium Phosphorus Magnesium Total Bilirubin AST ALT Alkaline Phosphatase Ammonia Total Creatine Kinase CK-MB (CK-2) CK-MB (CK-2) Rel Index Total Protein Albumin Urine WBC (Auto) Vancomycin Trough Salicylates Acetaminophen Plasma/Serum Alcohol Crossmatch 12/29/19 12/30/19 12/30/19 23:09 00:02 01:06 WBC 16.7 H RBC 2.91 L Hgb 8.2 L Hct 25.4 L MCH RDW 18.7 H Plt Count 708 H Lymph % (Auto) 9.4 L [place] % (Auto) [place] # 0.9 H Baso # Seg Neutrophils % 83.5 H Seg Neuts % (Manual) Lymphocytes % (Manual) Monocytes % (Manual) Seg Neutrophils # 14.0 H Seg Neutrophils # Man Lymphocytes # (Manual) Monocytes # (Manual) Eosinophils # (Manual) Basophils # (Manual) PT INR APTT ABG pH ABG pO2 ABG HCO3 ABG O2 Saturation ABG Base Excess ABG Hemoglobin Oxyhemoglobin Sodium Potassium Chloride Carbon Dioxide BUN Creatinine Glucose POC Glucose 120 H 114 H Lactic Acid Calcium Ionized Calcium Phosphorus Magnesium Total Bilirubin AST ALT Alkaline Phosphatase Ammonia Total Creatine Kinase CK-MB (CK-2) CK-MB (CK-2) Rel Index Total Protein Albumin Urine WBC (Auto) Vancomycin Trough Salicylates Acetaminophen Plasma/Serum Alcohol Crossmatch 12/30/19 12/30/19 12/30/19 01:06 04:23 05:18 WBC RBC Hgb Hct MCH RDW Plt Count Lymph % (Auto) [place] % (Auto) [place] # Baso # Seg Neutrophils % Seg Neuts % (Manual) Lymphocytes % (Manual) Monocytes % (Manual) Seg Neutrophils # Seg Neutrophils # Man Lymphocytes # (Manual) Monocytes # (Manual) Eosinophils # (Manual) Basophils # (Manual) PT INR APTT ABG pH ABG pO2 ABG HCO3 ABG O2 Saturation ABG Base Excess ABG Hemoglobin 8.3 L Oxyhemoglobin Sodium Potassium Chloride Carbon Dioxide BUN 70 H Creatinine Glucose 122 H POC Glucose 130 H Lactic Acid Calcium Ionized Calcium Phosphorus Magnesium Total Bilirubin AST ALT Alkaline Phosphatase Ammonia Total Creatine Kinase CK-MB (CK-2) CK-MB (CK-2) Rel Index Total Protein Albumin Urine WBC (Auto) Vancomycin Trough Salicylates Acetaminophen Plasma/Serum Alcohol Crossmatch 12/30/19 12/30/19 12/30/19 05:40 12:17 17:43 WBC RBC Hgb Hct MCH RDW Plt Count Lymph % (Auto) [place] % (Auto) [place] # Baso # Seg Neutrophils % Seg Neuts % (Manual) Lymphocytes % (Manual) Monocytes % (Manual) Seg Neutrophils # Seg Neutrophils # Man Lymphocytes # (Manual) Monocytes # (Manual) Eosinophils # (Manual) Basophils # (Manual) PT INR APTT ABG pH ABG pO2 ABG HCO3 ABG O2 Saturation ABG Base Excess ABG Hemoglobin Oxyhemoglobin Sodium Potassium Chloride Carbon Dioxide BUN Creatinine Glucose POC Glucose 135 H 132 H 118 H Lactic Acid Calcium Ionized Calcium Phosphorus Magnesium Total Bilirubin AST ALT Alkaline Phosphatase Ammonia Total Creatine Kinase CK-MB (CK-2) CK-MB (CK-2) Rel Index Total Protein Albumin Urine WBC (Auto) Vancomycin Trough Salicylates Acetaminophen Plasma/Serum Alcohol Crossmatch 12/30/19 12/31/19 12/31/19 23:29 05:19 17:50 WBC RBC Hgb Hct MCH RDW Plt Count Lymph % (Auto) [place] % (Auto) [place] # Baso # Seg Neutrophils % Seg Neuts % (Manual) Lymphocytes % (Manual) Monocytes % (Manual) Seg Neutrophils # Seg Neutrophils # Man Lymphocytes # (Manual) Monocytes # (Manual) Eosinophils # (Manual) Basophils # (Manual) PT INR APTT ABG pH ABG pO2 ABG HCO3 ABG O2 Saturation ABG Base Excess ABG Hemoglobin Oxyhemoglobin Sodium Potassium Chloride Carbon Dioxide BUN Creatinine Glucose POC Glucose 114 H 109 H 116 H Lactic Acid Calcium Ionized Calcium Phosphorus Magnesium Total Bilirubin AST ALT Alkaline Phosphatase Ammonia Total Creatine Kinase CK-MB (CK-2) CK-MB (CK-2) Rel Index Total Protein Albumin Urine WBC (Auto) Vancomycin Trough Salicylates Acetaminophen Plasma/Serum Alcohol Crossmatch 01/01/20 01/01/20 01/01/20 00:10 05:19 12:02 WBC RBC Hgb Hct MCH RDW Plt Count Lymph % (Auto) [place] % (Auto) [place] # Baso # Seg Neutrophils % Seg Neuts % (Manual) Lymphocytes % (Manual) Monocytes % (Manual) Seg Neutrophils # Seg Neutrophils # Man Lymphocytes # (Manual) Monocytes # (Manual) Eosinophils # (Manual) Basophils # (Manual) PT INR APTT ABG pH ABG pO2 ABG HCO3 ABG O2 Saturation ABG Base Excess ABG Hemoglobin Oxyhemoglobin Sodium Potassium Chloride Carbon Dioxide BUN Creatinine Glucose POC Glucose 131 H 122 H 136 H Lactic Acid Calcium Ionized Calcium Phosphorus Magnesium Total Bilirubin AST ALT Alkaline Phosphatase Ammonia Total Creatine Kinase CK-MB (CK-2) CK-MB (CK-2) Rel Index Total Protein Albumin Urine WBC (Auto) Vancomycin Trough Salicylates Acetaminophen Plasma/Serum Alcohol Crossmatch 01/02/20 01/02/20 01/02/20 00:24 05:36 11:41 WBC RBC Hgb Hct MCH RDW Plt Count Lymph % (Auto) [place] % (Auto) [place] # Baso # Seg Neutrophils % Seg Neuts % (Manual) Lymphocytes % (Manual) Monocytes % (Manual) Seg Neutrophils # Seg Neutrophils # Man Lymphocytes # (Manual) Monocytes # (Manual) Eosinophils # (Manual) Basophils # (Manual) PT INR APTT ABG pH ABG pO2 ABG HCO3 ABG O2 Saturation ABG Base Excess ABG Hemoglobin Oxyhemoglobin Sodium Potassium Chloride Carbon Dioxide BUN Creatinine Glucose POC Glucose 119 H 109 H 125 H Lactic Acid Calcium Ionized Calcium Phosphorus Magnesium Total Bilirubin AST ALT Alkaline Phosphatase Ammonia Total Creatine Kinase CK-MB (CK-2) CK-MB (CK-2) Rel Index Total Protein Albumin Urine WBC (Auto) Vancomycin Trough Salicylates Acetaminophen Plasma/Serum Alcohol Crossmatch 01/02/20 01/03/20 01/03/20 17:49 05:29 12:13 WBC RBC Hgb Hct MCH RDW Plt Count Lymph % (Auto) [place] % (Auto) [place] # Baso # Seg Neutrophils % Seg Neuts % (Manual) Lymphocytes % (Manual) Monocytes % (Manual) Seg Neutrophils # Seg Neutrophils # Man Lymphocytes # (Manual) Monocytes # (Manual) Eosinophils # (Manual) Basophils # (Manual) PT INR APTT ABG pH ABG pO2 ABG HCO3 ABG O2 Saturation ABG Base Excess ABG Hemoglobin Oxyhemoglobin Sodium Potassium Chloride Carbon Dioxide BUN Creatinine Glucose POC Glucose 130 H 132 H 113 H Lactic Acid Calcium Ionized Calcium Phosphorus Magnesium Total Bilirubin AST ALT Alkaline Phosphatase Ammonia Total Creatine Kinase CK-MB (CK-2) CK-MB (CK-2) Rel Index Total Protein Albumin Urine WBC (Auto) Vancomycin Trough Salicylates Acetaminophen Plasma/Serum Alcohol Crossmatch 01/03/20 01/04/20 01/04/20 17:32 00:19 05:26 WBC RBC Hgb Hct MCH RDW Plt Count Lymph % (Auto) [place] % (Auto) [place] # Baso # Seg Neutrophils % Seg Neuts % (Manual) Lymphocytes % (Manual) Monocytes % (Manual) Seg Neutrophils # Seg Neutrophils # Man Lymphocytes # (Manual) Monocytes # (Manual) Eosinophils # (Manual) Basophils # (Manual) PT INR APTT ABG pH ABG pO2 ABG HCO3 ABG O2 Saturation ABG Base Excess ABG Hemoglobin Oxyhemoglobin Sodium Potassium Chloride Carbon Dioxide BUN Creatinine Glucose POC Glucose 127 H 141 H 129 H Lactic Acid Calcium Ionized Calcium Phosphorus Magnesium Total Bilirubin AST ALT Alkaline Phosphatase Ammonia Total Creatine Kinase CK-MB (CK-2) CK-MB (CK-2) Rel Index Total Protein Albumin Urine WBC (Auto) Vancomycin Trough Salicylates Acetaminophen Plasma/Serum Alcohol Crossmatch 01/04/20 01/04/20 01/05/20 11:39 17:29 05:22 WBC RBC Hgb Hct MCH RDW Plt Count Lymph % (Auto) [place] % (Auto) [place] # Baso # Seg Neutrophils % Seg Neuts % (Manual) Lymphocytes % (Manual) Monocytes % (Manual) Seg Neutrophils # Seg Neutrophils # Man Lymphocytes # (Manual) Monocytes # (Manual) Eosinophils # (Manual) Basophils # (Manual) PT INR APTT ABG pH ABG pO2 ABG HCO3 ABG O2 Saturation ABG Base Excess ABG Hemoglobin Oxyhemoglobin Sodium Potassium Chloride Carbon Dioxide BUN Creatinine Glucose POC Glucose 167 H 132 H 121 H Lactic Acid Calcium Ionized Calcium Phosphorus Magnesium Total Bilirubin AST ALT Alkaline Phosphatase Ammonia Total Creatine Kinase CK-MB (CK-2) CK-MB (CK-2) Rel Index Total Protein Albumin Urine WBC (Auto) Vancomycin Trough Salicylates Acetaminophen Plasma/Serum Alcohol Crossmatch 01/05/20 01/05/20 01/05/20 12:25 17:40 18:06 WBC RBC Hgb Hct MCH RDW Plt Count Lymph % (Auto) [place] % (Auto) [place] # Baso # Seg Neutrophils % Seg Neuts % (Manual) Lymphocytes % (Manual) Monocytes % (Manual) Seg Neutrophils # Seg Neutrophils # Man Lymphocytes # (Manual) Monocytes # (Manual) Eosinophils # (Manual) Basophils # (Manual) PT INR APTT ABG pH 7.472 H ABG pO2 99.2 H ABG HCO3 ABG O2 Saturation ABG Base Excess ABG Hemoglobin 7.8 L Oxyhemoglobin Sodium Potassium Chloride Carbon Dioxide BUN Creatinine Glucose POC Glucose 106 H 110 H Lactic Acid Calcium Ionized Calcium Phosphorus Magnesium Total Bilirubin AST ALT Alkaline Phosphatase Ammonia Total Creatine Kinase CK-MB (CK-2) CK-MB (CK-2) Rel Index Total Protein Albumin Urine WBC (Auto) Vancomycin Trough Salicylates Acetaminophen Plasma/Serum Alcohol Crossmatch 01/06/20 01/06/20 01/06/20 00:11 05:16 11:30 WBC RBC Hgb Hct MCH RDW Plt Count Lymph % (Auto) [place] % (Auto) [place] # Baso # Seg Neutrophils % Seg Neuts % (Manual) Lymphocytes % (Manual) Monocytes % (Manual) Seg Neutrophils # Seg Neutrophils # Man Lymphocytes # (Manual) Monocytes # (Manual) Eosinophils # (Manual) Basophils # (Manual) PT INR APTT ABG pH ABG pO2 ABG HCO3 ABG O2 Saturation ABG Base Excess ABG Hemoglobin Oxyhemoglobin Sodium Potassium Chloride Carbon Dioxide BUN Creatinine Glucose POC Glucose 108 H 124 H 125 H Lactic Acid Calcium Ionized Calcium Phosphorus Magnesium Total Bilirubin AST ALT Alkaline Phosphatase Ammonia Total Creatine Kinase CK-MB (CK-2) CK-MB (CK-2) Rel Index Total Protein Albumin Urine WBC (Auto) Vancomycin Trough Salicylates Acetaminophen Plasma/Serum Alcohol Crossmatch 01/06/20 01/06/20 01/07/20 17:53 23:51 04:12 WBC 16.5 H RBC 3.29 L Hgb 9.3 L Hct 28.1 L MCH RDW 18.2 H Plt Count 526 H Lymph % (Auto) 8.4 L [place] % (Auto) [place] # 1.0 H Baso # Seg Neutrophils % 84.4 H Seg Neuts % (Manual) Lymphocytes % (Manual) Monocytes % (Manual) Seg Neutrophils # 13.9 H Seg Neutrophils # Man Lymphocytes # (Manual) Monocytes # (Manual) Eosinophils # (Manual) Basophils # (Manual) PT INR APTT ABG pH ABG pO2 ABG HCO3 ABG O2 Saturation ABG Base Excess ABG Hemoglobin Oxyhemoglobin Sodium Potassium Chloride Carbon Dioxide BUN Creatinine Glucose POC Glucose 166 H 128 H Lactic Acid Calcium Ionized Calcium Phosphorus Magnesium Total Bilirubin AST ALT Alkaline Phosphatase Ammonia Total Creatine Kinase CK-MB (CK-2) CK-MB (CK-2) Rel Index Total Protein Albumin Urine WBC (Auto) Vancomycin Trough Salicylates Acetaminophen Plasma/Serum Alcohol Crossmatch 01/07/20 01/07/20 01/07/20 04:12 04:45 11:51 WBC RBC Hgb Hct MCH RDW Plt Count Lymph % (Auto) [place] % (Auto) [place] # Baso # Seg Neutrophils % Seg Neuts % (Manual) Lymphocytes % (Manual) Monocytes % (Manual) Seg Neutrophils # Seg Neutrophils # Man Lymphocytes # (Manual) Monocytes # (Manual) Eosinophils # (Manual) Basophils # (Manual) PT INR APTT ABG pH ABG pO2 ABG HCO3 ABG O2 Saturation ABG Base Excess ABG Hemoglobin Oxyhemoglobin Sodium 136 L Potassium Chloride Carbon Dioxide 21 L BUN 44 H Creatinine 0.6 L Glucose 124 H POC Glucose 134 H 138 H Lactic Acid Calcium Ionized Calcium Phosphorus Magnesium Total Bilirubin AST ALT Alkaline Phosphatase Ammonia Total Creatine Kinase CK-MB (CK-2) CK-MB (CK-2) Rel Index Total Protein Albumin Urine WBC (Auto) Vancomycin Trough Salicylates Acetaminophen Plasma/Serum Alcohol Crossmatch 01/07/20 01/08/20 01/08/20 17:36 00:33 05:29 WBC RBC Hgb Hct MCH RDW Plt Count Lymph % (Auto) [place] % (Auto) [place] # Baso # Seg Neutrophils % Seg Neuts % (Manual) Lymphocytes % (Manual) Monocytes % (Manual) Seg Neutrophils # Seg Neutrophils # Man Lymphocytes # (Manual) Monocytes # (Manual) Eosinophils # (Manual) Basophils # (Manual) PT INR APTT ABG pH ABG pO2 ABG HCO3 ABG O2 Saturation ABG Base Excess ABG Hemoglobin Oxyhemoglobin Sodium Potassium Chloride Carbon Dioxide BUN Creatinine Glucose POC Glucose 128 H 119 H 124 H Lactic Acid Calcium Ionized Calcium Phosphorus Magnesium Total Bilirubin AST ALT Alkaline Phosphatase Ammonia Total Creatine Kinase CK-MB (CK-2) CK-MB (CK-2) Rel Index Total Protein Albumin Urine WBC (Auto) Vancomycin Trough Salicylates Acetaminophen Plasma/Serum Alcohol Crossmatch 01/08/20 01/08/20 01/08/20 12:51 20:25 23:22 WBC RBC Hgb Hct MCH RDW Plt Count Lymph % (Auto) [place] % (Auto) [place] # Baso # Seg Neutrophils % Seg Neuts % (Manual) Lymphocytes % (Manual) Monocytes % (Manual) Seg Neutrophils # Seg Neutrophils # Man Lymphocytes # (Manual) Monocytes # (Manual) Eosinophils # (Manual) Basophils # (Manual) PT INR APTT ABG pH ABG pO2 132.2 H ABG HCO3 ABG O2 Saturation ABG Base Excess ABG Hemoglobin Oxyhemoglobin Sodium Potassium Chloride Carbon Dioxide BUN Creatinine Glucose POC Glucose 128 H 127 H Lactic Acid Calcium Ionized Calcium Phosphorus Magnesium Total Bilirubin AST ALT Alkaline Phosphatase Ammonia Total Creatine Kinase CK-MB (CK-2) CK-MB (CK-2) Rel Index Total Protein Albumin Urine WBC (Auto) Vancomycin Trough Salicylates Acetaminophen Plasma/Serum Alcohol Crossmatch 01/09/20 01/09/20 01/09/20 05:48 08:51 11:29 WBC RBC Hgb Hct MCH RDW Plt Count Lymph % (Auto) [place] % (Auto) [place] # Baso # Seg Neutrophils % Seg Neuts % (Manual) Lymphocytes % (Manual) Monocytes % (Manual) Seg Neutrophils # Seg Neutrophils # Man Lymphocytes # (Manual) Monocytes # (Manual) Eosinophils # (Manual) Basophils # (Manual) PT INR APTT ABG pH ABG pO2 94.3 H ABG HCO3 ABG O2 Saturation ABG Base Excess ABG Hemoglobin 9.5 L Oxyhemoglobin Sodium Potassium Chloride Carbon Dioxide BUN Creatinine Glucose POC Glucose 120 H 112 H Lactic Acid Calcium Ionized Calcium Phosphorus Magnesium Total Bilirubin AST ALT Alkaline Phosphatase Ammonia Total Creatine Kinase CK-MB (CK-2) CK-MB (CK-2) Rel Index Total Protein Albumin Urine WBC (Auto) Vancomycin Trough Salicylates Acetaminophen Plasma/Serum Alcohol Crossmatch 01/09/20 01/10/20 01/10/20 17:57 05:17 12:28 WBC RBC Hgb Hct MCH RDW Plt Count Lymph % (Auto) [place] % (Auto) [place] # Baso # Seg Neutrophils % Seg Neuts % (Manual) Lymphocytes % (Manual) Monocytes % (Manual) Seg Neutrophils # Seg Neutrophils # Man Lymphocytes # (Manual) Monocytes # (Manual) Eosinophils # (Manual) Basophils # (Manual) PT INR APTT ABG pH ABG pO2 ABG HCO3 ABG O2 Saturation ABG Base Excess ABG Hemoglobin Oxyhemoglobin Sodium Potassium Chloride Carbon Dioxide BUN Creatinine Glucose POC Glucose 122 H 115 H 116 H Lactic Acid Calcium Ionized Calcium Phosphorus Magnesium Total Bilirubin AST ALT Alkaline Phosphatase Ammonia Total Creatine Kinase CK-MB (CK-2) CK-MB (CK-2) Rel Index Total Protein Albumin Urine WBC (Auto) Vancomycin Trough Salicylates Acetaminophen Plasma/Serum Alcohol Crossmatch 01/10/20 01/10/20 01/11/20 18:25 23:47 06:05 WBC RBC Hgb Hct MCH RDW Plt Count Lymph % (Auto) [place] % (Auto) [place] # Baso # Seg Neutrophils % Seg Neuts % (Manual) Lymphocytes % (Manual) Monocytes % (Manual) Seg Neutrophils # Seg Neutrophils # Man Lymphocytes # (Manual) Monocytes # (Manual) Eosinophils # (Manual) Basophils # (Manual) PT INR APTT ABG pH ABG pO2 ABG HCO3 ABG O2 Saturation ABG Base Excess ABG Hemoglobin Oxyhemoglobin Sodium Potassium Chloride Carbon Dioxide BUN Creatinine Glucose POC Glucose 123 H 115 H 151 H Lactic Acid Calcium Ionized Calcium Phosphorus Magnesium Total Bilirubin AST ALT Alkaline Phosphatase Ammonia Total Creatine Kinase CK-MB (CK-2) CK-MB (CK-2) Rel Index Total Protein Albumin Urine WBC (Auto) Vancomycin Trough Salicylates Acetaminophen Plasma/Serum Alcohol Crossmatch 01/11/20 01/11/20 01/11/20 07:00 07:00 12:27 WBC 11.8 H RBC 3.40 L Hgb 9.4 L Hct 29.3 L MCH RDW 18.1 H Plt Count 549 H Lymph % (Auto) [place] % (Auto) 9.1 H [place] # 1.1 H Baso # Seg Neutrophils % 73.3 H Seg Neuts % (Manual) Lymphocytes % (Manual) Monocytes % (Manual) Seg Neutrophils # 8.7 H Seg Neutrophils # Man Lymphocytes # (Manual) Monocytes # (Manual) Eosinophils # (Manual) Basophils # (Manual) PT INR APTT ABG pH ABG pO2 ABG HCO3 ABG O2 Saturation ABG Base Excess ABG Hemoglobin Oxyhemoglobin Sodium 134 L Potassium Chloride 97.7 L Carbon Dioxide 21 L BUN 38 H Creatinine 0.5 L Glucose 168 H POC Glucose 117 H Lactic Acid Calcium 10.5 H Ionized Calcium Phosphorus Magnesium Total Bilirubin AST ALT Alkaline Phosphatase Ammonia Total Creatine Kinase CK-MB (CK-2) CK-MB (CK-2) Rel Index Total Protein Albumin Urine WBC (Auto) Vancomycin Trough Salicylates Acetaminophen Plasma/Serum Alcohol Crossmatch 01/11/20 01/12/20 01/12/20 18:19 00:53 05:24 WBC RBC Hgb Hct MCH RDW Plt Count Lymph % (Auto) [place] % (Auto) [place] # Baso # Seg Neutrophils % Seg Neuts % (Manual) Lymphocytes % (Manual) Monocytes % (Manual) Seg Neutrophils # Seg Neutrophils # Man Lymphocytes # (Manual) Monocytes # (Manual) Eosinophils # (Manual) Basophils # (Manual) PT INR APTT ABG pH ABG pO2 ABG HCO3 ABG O2 Saturation ABG Base Excess ABG Hemoglobin Oxyhemoglobin Sodium Potassium Chloride Carbon Dioxide BUN Creatinine Glucose POC Glucose 126 H 126 H 128 H Lactic Acid Calcium Ionized Calcium Phosphorus Magnesium Total Bilirubin AST ALT Alkaline Phosphatase Ammonia Total Creatine Kinase CK-MB (CK-2) CK-MB (CK-2) Rel Index Total Protein Albumin Urine WBC (Auto) Vancomycin Trough Salicylates Acetaminophen Plasma/Serum Alcohol Crossmatch 01/12/20 01/12/20 01/13/20 13:39 18:02 00:27 WBC RBC Hgb Hct MCH RDW Plt Count Lymph % (Auto) [place] % (Auto) [place] # Baso # Seg Neutrophils % Seg Neuts % (Manual) Lymphocytes % (Manual) Monocytes % (Manual) Seg Neutrophils # Seg Neutrophils # Man Lymphocytes # (Manual) Monocytes # (Manual) Eosinophils # (Manual) Basophils # (Manual) PT INR APTT ABG pH ABG pO2 ABG HCO3 ABG O2 Saturation ABG Base Excess ABG Hemoglobin Oxyhemoglobin Sodium Potassium Chloride Carbon Dioxide BUN Creatinine Glucose POC Glucose 146 H 125 H 131 H Lactic Acid Calcium Ionized Calcium Phosphorus Magnesium Total Bilirubin AST ALT Alkaline Phosphatase Ammonia Total Creatine Kinase CK-MB (CK-2) CK-MB (CK-2) Rel Index Total Protein Albumin Urine WBC (Auto) Vancomycin Trough Salicylates Acetaminophen Plasma/Serum Alcohol Crossmatch 01/13/20 01/13/20 01/13/20 05:44 11:54 17:18 WBC RBC Hgb Hct MCH RDW Plt Count Lymph % (Auto) [place] % (Auto) [place] # Baso # Seg Neutrophils % Seg Neuts % (Manual) Lymphocytes % (Manual) Monocytes % (Manual) Seg Neutrophils # Seg Neutrophils # Man Lymphocytes # (Manual) Monocytes # (Manual) Eosinophils # (Manual) Basophils # (Manual) PT INR APTT ABG pH ABG pO2 ABG HCO3 ABG O2 Saturation ABG Base Excess ABG Hemoglobin Oxyhemoglobin Sodium Potassium Chloride Carbon Dioxide BUN Creatinine Glucose POC Glucose 148 H 140 H 130 H Lactic Acid Calcium Ionized Calcium Phosphorus Magnesium Total Bilirubin AST ALT Alkaline Phosphatase Ammonia Total Creatine Kinase CK-MB (CK-2) CK-MB (CK-2) Rel Index Total Protein Albumin Urine WBC (Auto) Vancomycin Trough Salicylates Acetaminophen Plasma/Serum Alcohol Crossmatch 01/14/20 01/14/20 01/14/20 00:16 05:45 12:19 WBC RBC Hgb Hct MCH RDW Plt Count Lymph % (Auto) [place] % (Auto) [place] # Baso # Seg Neutrophils % Seg Neuts % (Manual) Lymphocytes % (Manual) Monocytes % (Manual) Seg Neutrophils # Seg Neutrophils # Man Lymphocytes # (Manual) Monocytes # (Manual) Eosinophils # (Manual) Basophils # (Manual) PT INR APTT ABG pH ABG pO2 ABG HCO3 ABG O2 Saturation ABG Base Excess ABG Hemoglobin Oxyhemoglobin Sodium Potassium Chloride Carbon Dioxide BUN Creatinine Glucose POC Glucose 125 H 146 H 147 H Lactic Acid Calcium Ionized Calcium Phosphorus Magnesium Total Bilirubin AST ALT Alkaline Phosphatase Ammonia Total Creatine Kinase CK-MB (CK-2) CK-MB (CK-2) Rel Index Total Protein Albumin Urine WBC (Auto) Vancomycin Trough Salicylates Acetaminophen Plasma/Serum Alcohol Crossmatch 01/14/20 01/14/20 01/15/20 18:10 23:54 05:14 WBC RBC Hgb Hct MCH RDW Plt Count Lymph % (Auto) [place] % (Auto) [place] # Baso # Seg Neutrophils % Seg Neuts % (Manual) Lymphocytes % (Manual) Monocytes % (Manual) Seg Neutrophils # Seg Neutrophils # Man Lymphocytes # (Manual) Monocytes # (Manual) Eosinophils # (Manual) Basophils # (Manual) PT INR APTT ABG pH ABG pO2 ABG HCO3 ABG O2 Saturation ABG Base Excess ABG Hemoglobin Oxyhemoglobin Sodium Potassium Chloride Carbon Dioxide BUN Creatinine Glucose POC Glucose 136 H 109 H 111 H Lactic Acid Calcium Ionized Calcium Phosphorus Magnesium Total Bilirubin AST ALT Alkaline Phosphatase Ammonia Total Creatine Kinase CK-MB (CK-2) CK-MB (CK-2) Rel Index Total Protein Albumin Urine WBC (Auto) Vancomycin Trough Salicylates Acetaminophen Plasma/Serum Alcohol Crossmatch 01/15/20 01/15/20 01/16/20 12:34 23:25 05:06 WBC RBC Hgb Hct MCH RDW Plt Count Lymph % (Auto) [place] % (Auto) [place] # Baso # Seg Neutrophils % Seg Neuts % (Manual) Lymphocytes % (Manual) Monocytes % (Manual) Seg Neutrophils # Seg Neutrophils # Man Lymphocytes # (Manual) Monocytes # (Manual) Eosinophils # (Manual) Basophils # (Manual) PT INR APTT ABG pH ABG pO2 ABG HCO3 ABG O2 Saturation ABG Base Excess ABG Hemoglobin Oxyhemoglobin Sodium Potassium Chloride Carbon Dioxide BUN Creatinine Glucose POC Glucose 131 H 120 H 121 H Lactic Acid Calcium Ionized Calcium Phosphorus Magnesium Total Bilirubin AST ALT Alkaline Phosphatase Ammonia Total Creatine Kinase CK-MB (CK-2) CK-MB (CK-2) Rel Index Total Protein Albumin Urine WBC (Auto) Vancomycin Trough Salicylates Acetaminophen Plasma/Serum Alcohol Crossmatch 01/16/20 01/16/20 01/17/20 12:15 23:46 05:32 WBC 13.6 H RBC 3.27 L Hgb 9.3 L Hct 28.5 L MCH RDW 17.0 H Plt Count 490 H Lymph % (Auto) 13.1 L [place] % (Auto) [place] # 1.0 H Baso # Seg Neutrophils % 77.5 H Seg Neuts % (Manual) Lymphocytes % (Manual) Monocytes % (Manual) Seg Neutrophils # 10.5 H Seg Neutrophils # Man Lymphocytes # (Manual) Monocytes # (Manual) Eosinophils # (Manual) Basophils # (Manual) PT INR APTT ABG pH ABG pO2 ABG HCO3 ABG O2 Saturation ABG Base Excess ABG Hemoglobin Oxyhemoglobin Sodium Potassium Chloride Carbon Dioxide BUN Creatinine Glucose POC Glucose 152 H 107 H Lactic Acid Calcium Ionized Calcium Phosphorus Magnesium Total Bilirubin AST ALT Alkaline Phosphatase Ammonia Total Creatine Kinase CK-MB (CK-2) CK-MB (CK-2) Rel Index Total Protein Albumin Urine WBC (Auto) Vancomycin Trough Salicylates Acetaminophen Plasma/Serum Alcohol Crossmatch 01/17/20 01/17/20 01/17/20 06:47 12:16 17:21 WBC RBC Hgb Hct MCH RDW Plt Count Lymph % (Auto) [place] % (Auto) [place] # Baso # Seg Neutrophils % Seg Neuts % (Manual) Lymphocytes % (Manual) Monocytes % (Manual) Seg Neutrophils # Seg Neutrophils # Man Lymphocytes # (Manual) Monocytes # (Manual) Eosinophils # (Manual) Basophils # (Manual) PT INR APTT ABG pH ABG pO2 ABG HCO3 ABG O2 Saturation ABG Base Excess ABG Hemoglobin Oxyhemoglobin Sodium Potassium Chloride Carbon Dioxide BUN Creatinine Glucose POC Glucose 112 H 145 H 150 H Lactic Acid Calcium Ionized Calcium Phosphorus Magnesium Total Bilirubin AST ALT Alkaline Phosphatase Ammonia Total Creatine Kinase CK-MB (CK-2) CK-MB (CK-2) Rel Index Total Protein Albumin Urine WBC (Auto) Vancomycin Trough Salicylates Acetaminophen Plasma/Serum Alcohol Crossmatch 01/17/20 01/18/20 01/18/20 23:34 05:47 12:43 WBC RBC Hgb Hct MCH RDW Plt Count Lymph % (Auto) [place] % (Auto) [place] # Baso # Seg Neutrophils % Seg Neuts % (Manual) Lymphocytes % (Manual) Monocytes % (Manual) Seg Neutrophils # Seg Neutrophils # Man Lymphocytes # (Manual) Monocytes # (Manual) Eosinophils # (Manual) Basophils # (Manual) PT INR APTT ABG pH ABG pO2 ABG HCO3 ABG O2 Saturation ABG Base Excess ABG Hemoglobin Oxyhemoglobin Sodium Potassium Chloride Carbon Dioxide BUN Creatinine Glucose POC Glucose 160 H 130 H 124 H Lactic Acid Calcium Ionized Calcium Phosphorus Magnesium Total Bilirubin AST ALT Alkaline Phosphatase Ammonia Total Creatine Kinase CK-MB (CK-2) CK-MB (CK-2) Rel Index Total Protein Albumin Urine WBC (Auto) Vancomycin Trough Salicylates Acetaminophen Plasma/Serum Alcohol Crossmatch 01/18/20 01/19/20 01/19/20 18:26 00:14 06:24 WBC RBC Hgb Hct MCH RDW Plt Count Lymph % (Auto) [place] % (Auto) [place] # Baso # Seg Neutrophils % Seg Neuts % (Manual) Lymphocytes % (Manual) Monocytes % (Manual) Seg Neutrophils # Seg Neutrophils # Man Lymphocytes # (Manual) Monocytes # (Manual) Eosinophils # (Manual) Basophils # (Manual) PT INR APTT ABG pH ABG pO2 ABG HCO3 ABG O2 Saturation ABG Base Excess ABG Hemoglobin Oxyhemoglobin Sodium Potassium Chloride Carbon Dioxide BUN Creatinine Glucose POC Glucose 119 H 114 H 144 H Lactic Acid Calcium Ionized Calcium Phosphorus Magnesium Total Bilirubin AST ALT Alkaline Phosphatase Ammonia Total Creatine Kinase CK-MB (CK-2) CK-MB (CK-2) Rel Index Total Protein Albumin Urine WBC (Auto) Vancomycin Trough Salicylates Acetaminophen Plasma/Serum Alcohol Crossmatch 01/19/20 01/19/20 01/20/20 12:24 17:50 12:06 WBC RBC Hgb Hct MCH RDW Plt Count Lymph % (Auto) [place] % (Auto) [place] # Baso # Seg Neutrophils % Seg Neuts % (Manual) Lymphocytes % (Manual) Monocytes % (Manual) Seg Neutrophils # Seg Neutrophils # Man Lymphocytes # (Manual) Monocytes # (Manual) Eosinophils # (Manual) Basophils # (Manual) PT INR APTT ABG pH ABG pO2 ABG HCO3 ABG O2 Saturation ABG Base Excess ABG Hemoglobin Oxyhemoglobin Sodium Potassium Chloride Carbon Dioxide BUN Creatinine Glucose POC Glucose 132 H 144 H 135 H Lactic Acid Calcium Ionized Calcium Phosphorus Magnesium Total Bilirubin AST ALT Alkaline Phosphatase Ammonia Total Creatine Kinase CK-MB (CK-2) CK-MB (CK-2) Rel Index Total Protein Albumin Urine WBC (Auto) Vancomycin Trough Salicylates Acetaminophen Plasma/Serum Alcohol Crossmatch 01/21/20 01/21/20 01/21/20 05:46 13:02 23:49 WBC RBC Hgb Hct MCH RDW Plt Count Lymph % (Auto) [place] % (Auto) [place] # Baso # Seg Neutrophils % Seg Neuts % (Manual) Lymphocytes % (Manual) Monocytes % (Manual) Seg Neutrophils # Seg Neutrophils # Man Lymphocytes # (Manual) Monocytes # (Manual) Eosinophils # (Manual) Basophils # (Manual) PT INR APTT ABG pH ABG pO2 ABG HCO3 ABG O2 Saturation ABG Base Excess ABG Hemoglobin Oxyhemoglobin Sodium Potassium Chloride Carbon Dioxide BUN Creatinine Glucose POC Glucose 114 H 136 H 120 H Lactic Acid Calcium Ionized Calcium Phosphorus Magnesium Total Bilirubin AST ALT Alkaline Phosphatase Ammonia Total Creatine Kinase CK-MB (CK-2) CK-MB (CK-2) Rel Index Total Protein Albumin Urine WBC (Auto) Vancomycin Trough Salicylates Acetaminophen Plasma/Serum Alcohol Crossmatch 01/22/20 01/22/20 01/22/20 05:41 11:44 16:31 WBC RBC Hgb Hct MCH RDW Plt Count Lymph % (Auto) [place] % (Auto) [place] # Baso # Seg Neutrophils % Seg Neuts % (Manual) Lymphocytes % (Manual) Monocytes % (Manual) Seg Neutrophils # Seg Neutrophils # Man Lymphocytes # (Manual) Monocytes # (Manual) Eosinophils # (Manual) Basophils # (Manual) PT INR APTT ABG pH ABG pO2 ABG HCO3 ABG O2 Saturation ABG Base Excess ABG Hemoglobin Oxyhemoglobin Sodium Potassium Chloride Carbon Dioxide BUN Creatinine Glucose POC Glucose 124 H 173 H 111 H Lactic Acid Calcium Ionized Calcium Phosphorus Magnesium Total Bilirubin AST ALT Alkaline Phosphatase Ammonia Total Creatine Kinase CK-MB (CK-2) CK-MB (CK-2) Rel Index Total Protein Albumin Urine WBC (Auto) Vancomycin Trough Salicylates Acetaminophen Plasma/Serum Alcohol Crossmatch 01/22/20 01/23/20 01/23/20 23:25 05:15 12:15 WBC RBC Hgb Hct MCH RDW Plt Count Lymph % (Auto) [place] % (Auto) [place] # Baso # Seg Neutrophils % Seg Neuts % (Manual) Lymphocytes % (Manual) Monocytes % (Manual) Seg Neutrophils # Seg Neutrophils # Man Lymphocytes # (Manual) Monocytes # (Manual) Eosinophils # (Manual) Basophils # (Manual) PT INR APTT ABG pH ABG pO2 ABG HCO3 ABG O2 Saturation ABG Base Excess ABG Hemoglobin Oxyhemoglobin Sodium Potassium Chloride Carbon Dioxide BUN Creatinine Glucose POC Glucose 134 H 117 H 129 H Lactic Acid Calcium Ionized Calcium Phosphorus Magnesium Total Bilirubin AST ALT Alkaline Phosphatase Ammonia Total Creatine Kinase CK-MB (CK-2) CK-MB (CK-2) Rel Index Total Protein Albumin Urine WBC (Auto) Vancomycin Trough Salicylates Acetaminophen Plasma/Serum Alcohol Crossmatch 01/23/20 01/23/20 01/23/20 16:58 21:17 23:47 WBC RBC Hgb Hct MCH RDW Plt Count Lymph % (Auto) [place] % (Auto) [place] # Baso # Seg Neutrophils % Seg Neuts % (Manual) Lymphocytes % (Manual) Monocytes % (Manual) Seg Neutrophils # Seg Neutrophils # Man Lymphocytes # (Manual) Monocytes # (Manual) Eosinophils # (Manual) Basophils # (Manual) PT INR APTT ABG pH ABG pO2 ABG HCO3 ABG O2 Saturation ABG Base Excess ABG Hemoglobin Oxyhemoglobin Sodium Potassium Chloride Carbon Dioxide BUN Creatinine Glucose POC Glucose 156 H 185 H 156 H Lactic Acid Calcium Ionized Calcium Phosphorus Magnesium Total Bilirubin AST ALT Alkaline Phosphatase Ammonia Total Creatine Kinase CK-MB (CK-2) CK-MB (CK-2) Rel Index Total Protein Albumin Urine WBC (Auto) Vancomycin Trough Salicylates Acetaminophen Plasma/Serum Alcohol Crossmatch 01/24/20 01/24/20 01/24/20 04:47 04:47 05:59 WBC 17.8 H RBC 3.60 L Hgb Hct MCH RDW 16.2 H Plt Count 688 H Lymph % (Auto) 11.8 L [place] % (Auto) 7.5 H [place] # 1.3 H Baso # Seg Neutrophils % 79.9 H Seg Neuts % (Manual) Lymphocytes % (Manual) Monocytes % (Manual) Seg Neutrophils # 14.2 H Seg Neutrophils # Man Lymphocytes # (Manual) Monocytes # (Manual) Eosinophils # (Manual) Basophils # (Manual) PT INR APTT ABG pH ABG pO2 ABG HCO3 ABG O2 Saturation ABG Base Excess ABG Hemoglobin Oxyhemoglobin Sodium 131 L Potassium Chloride 91.2 L Carbon Dioxide BUN 22 H Creatinine 0.3 L Glucose 123 H POC Glucose 147 H Lactic Acid Calcium 10.9 H Ionized Calcium Phosphorus Magnesium Total Bilirubin AST ALT Alkaline Phosphatase Ammonia Total Creatine Kinase CK-MB (CK-2) CK-MB (CK-2) Rel Index Total Protein Albumin Urine WBC (Auto) Vancomycin Trough Salicylates Acetaminophen Plasma/Serum Alcohol Crossmatch 01/24/20 01/24/20 01/25/20 11:47 16:45 00:18 WBC RBC Hgb Hct MCH RDW Plt Count Lymph % (Auto) [place] % (Auto) [place] # Baso # Seg Neutrophils % Seg Neuts % (Manual) Lymphocytes % (Manual) Monocytes % (Manual) Seg Neutrophils # Seg Neutrophils # Man Lymphocytes # (Manual) Monocytes # (Manual) Eosinophils # (Manual) Basophils # (Manual) PT INR APTT ABG pH ABG pO2 ABG HCO3 ABG O2 Saturation ABG Base Excess ABG Hemoglobin Oxyhemoglobin Sodium Potassium Chloride Carbon Dioxide BUN Creatinine Glucose POC Glucose 114 H 108 H 119 H Lactic Acid Calcium Ionized Calcium Phosphorus Magnesium Total Bilirubin AST ALT Alkaline Phosphatase Ammonia Total Creatine Kinase CK-MB (CK-2) CK-MB (CK-2) Rel Index Total Protein Albumin Urine WBC (Auto) Vancomycin Trough Salicylates Acetaminophen Plasma/Serum Alcohol Crossmatch 01/25/20 01/25/20 01/25/20 07:18 11:58 16:56 WBC RBC Hgb Hct MCH RDW Plt Count Lymph % (Auto) [place] % (Auto) [place] # Baso # Seg Neutrophils % Seg Neuts % (Manual) Lymphocytes % (Manual) Monocytes % (Manual) Seg Neutrophils # Seg Neutrophils # Man Lymphocytes # (Manual) Monocytes # (Manual) Eosinophils # (Manual) Basophils # (Manual) PT INR APTT ABG pH ABG pO2 ABG HCO3 ABG O2 Saturation ABG Base Excess ABG Hemoglobin Oxyhemoglobin Sodium Potassium Chloride Carbon Dioxide BUN Creatinine Glucose POC Glucose 136 H 136 H 147 H Lactic Acid Calcium Ionized Calcium Phosphorus Magnesium Total Bilirubin AST ALT Alkaline Phosphatase Ammonia Total Creatine Kinase CK-MB (CK-2) CK-MB (CK-2) Rel Index Total Protein Albumin Urine WBC (Auto) Vancomycin Trough Salicylates Acetaminophen Plasma/Serum Alcohol Crossmatch 01/26/20 01/26/20 01/26/20 00:29 05:59 05:59 WBC 12.8 H RBC Hgb Hct MCH RDW 16.4 H Plt Count 743 H Lymph % (Auto) [place] % (Auto) [place] # 0.9 H Baso # Seg Neutrophils % 76.2 H Seg Neuts % (Manual) Lymphocytes % (Manual) Monocytes % (Manual) Seg Neutrophils # 9.8 H Seg Neutrophils # Man Lymphocytes # (Manual) Monocytes # (Manual) Eosinophils # (Manual) Basophils # (Manual) PT INR APTT ABG pH ABG pO2 ABG HCO3 ABG O2 Saturation ABG Base Excess ABG Hemoglobin Oxyhemoglobin Sodium 132 L Potassium Chloride 90.9 L Carbon Dioxide BUN 23 H Creatinine 0.4 L Glucose 122 H POC Glucose 107 H Lactic Acid Calcium 11.0 H Ionized Calcium Phosphorus Magnesium Total Bilirubin AST ALT Alkaline Phosphatase Ammonia Total Creatine Kinase CK-MB (CK-2) CK-MB (CK-2) Rel Index Total Protein Albumin Urine WBC (Auto) Vancomycin Trough Salicylates Acetaminophen Plasma/Serum Alcohol Crossmatch 01/26/20 01/26/20 01/26/20 06:27 12:06 16:49 WBC RBC Hgb Hct MCH RDW Plt Count Lymph % (Auto) [place] % (Auto) [place] # Baso # Seg Neutrophils % Seg Neuts % (Manual) Lymphocytes % (Manual) Monocytes % (Manual) Seg Neutrophils # Seg Neutrophils # Man Lymphocytes # (Manual) Monocytes # (Manual) Eosinophils # (Manual) Basophils # (Manual) PT INR APTT ABG pH ABG pO2 ABG HCO3 ABG O2 Saturation ABG Base Excess ABG Hemoglobin Oxyhemoglobin Sodium Potassium Chloride Carbon Dioxide BUN Creatinine Glucose POC Glucose 132 H 132 H 110 H Lactic Acid Calcium Ionized Calcium Phosphorus Magnesium Total Bilirubin AST ALT Alkaline Phosphatase Ammonia Total Creatine Kinase CK-MB (CK-2) CK-MB (CK-2) Rel Index Total Protein Albumin Urine WBC (Auto) Vancomycin Trough Salicylates Acetaminophen Plasma/Serum Alcohol Crossmatch 01/27/20 01/27/20 01/27/20 00:08 11:49 16:24 WBC RBC Hgb Hct MCH RDW Plt Count Lymph % (Auto) [place] % (Auto) [place] # Baso # Seg Neutrophils % Seg Neuts % (Manual) Lymphocytes % (Manual) Monocytes % (Manual) Seg Neutrophils # Seg Neutrophils # Man Lymphocytes # (Manual) Monocytes # (Manual) Eosinophils # (Manual) Basophils # (Manual) PT INR APTT ABG pH ABG pO2 ABG HCO3 ABG O2 Saturation ABG Base Excess ABG Hemoglobin Oxyhemoglobin Sodium Potassium Chloride Carbon Dioxide BUN Creatinine Glucose POC Glucose 107 H 119 H 129 H Lactic Acid Calcium Ionized Calcium Phosphorus Magnesium Total Bilirubin AST ALT Alkaline Phosphatase Ammonia Total Creatine Kinase CK-MB (CK-2) CK-MB (CK-2) Rel Index Total Protein Albumin Urine WBC (Auto) Vancomycin Trough Salicylates Acetaminophen Plasma/Serum Alcohol Crossmatch 01/27/20 01/28/20 01/28/20 18:28 01:00 06:22 WBC RBC Hgb Hct MCH RDW Plt Count Lymph % (Auto) [place] % (Auto) [place] # Baso # Seg Neutrophils % Seg Neuts % (Manual) Lymphocytes % (Manual) Monocytes % (Manual) Seg Neutrophils # Seg Neutrophils # Man Lymphocytes # (Manual) Monocytes # (Manual) Eosinophils # (Manual) Basophils # (Manual) PT INR APTT ABG pH ABG pO2 ABG HCO3 ABG O2 Saturation ABG Base Excess ABG Hemoglobin Oxyhemoglobin Sodium Potassium Chloride Carbon Dioxide BUN Creatinine Glucose POC Glucose 126 H 121 H 114 H Lactic Acid Calcium Ionized Calcium Phosphorus Magnesium Total Bilirubin AST ALT Alkaline Phosphatase Ammonia Total Creatine Kinase CK-MB (CK-2) CK-MB (CK-2) Rel Index Total Protein Albumin Urine WBC (Auto) Vancomycin Trough Salicylates Acetaminophen Plasma/Serum Alcohol Crossmatch 01/28/20 01/28/20 01/29/20 11:47 18:00 00:05 WBC RBC Hgb Hct MCH RDW Plt Count Lymph % (Auto) [place] % (Auto) [place] # Baso # Seg Neutrophils % Seg Neuts % (Manual) Lymphocytes % (Manual) Monocytes % (Manual) Seg Neutrophils # Seg Neutrophils # Man Lymphocytes # (Manual) Monocytes # (Manual) Eosinophils # (Manual) Basophils # (Manual) PT INR APTT ABG pH ABG pO2 ABG HCO3 ABG O2 Saturation ABG Base Excess ABG Hemoglobin Oxyhemoglobin Sodium Potassium Chloride Carbon Dioxide BUN Creatinine Glucose POC Glucose 106 H 117 H 127 H Lactic Acid Calcium Ionized Calcium Phosphorus Magnesium Total Bilirubin AST ALT Alkaline Phosphatase Ammonia Total Creatine Kinase CK-MB (CK-2) CK-MB (CK-2) Rel Index Total Protein Albumin Urine WBC (Auto) Vancomycin Trough Salicylates Acetaminophen Plasma/Serum Alcohol Crossmatch 01/29/20 01/29/20 01/29/20 06:04 11:40 16:38 WBC RBC Hgb Hct MCH RDW Plt Count Lymph % (Auto) [place] % (Auto) [place] # Baso # Seg Neutrophils % Seg Neuts % (Manual) Lymphocytes % (Manual) Monocytes % (Manual) Seg Neutrophils # Seg Neutrophils # Man Lymphocytes # (Manual) Monocytes # (Manual) Eosinophils # (Manual) Basophils # (Manual) PT INR APTT ABG pH ABG pO2 ABG HCO3 ABG O2 Saturation ABG Base Excess ABG Hemoglobin Oxyhemoglobin Sodium Potassium Chloride Carbon Dioxide BUN Creatinine Glucose POC Glucose 147 H 139 H 143 H Lactic Acid Calcium Ionized Calcium Phosphorus Magnesium Total Bilirubin AST ALT Alkaline Phosphatase Ammonia Total Creatine Kinase CK-MB (CK-2) CK-MB (CK-2) Rel Index Total Protein Albumin Urine WBC (Auto) Vancomycin Trough Salicylates Acetaminophen Plasma/Serum Alcohol Crossmatch 01/29/20 01/30/20 01/30/20 23:46 06:43 12:07 WBC RBC Hgb Hct MCH RDW Plt Count Lymph % (Auto) [place] % (Auto) [place] # Baso # Seg Neutrophils % Seg Neuts % (Manual) Lymphocytes % (Manual) Monocytes % (Manual) Seg Neutrophils # Seg Neutrophils # Man Lymphocytes # (Manual) Monocytes # (Manual) Eosinophils # (Manual) Basophils # (Manual) PT INR APTT ABG pH ABG pO2 ABG HCO3 ABG O2 Saturation ABG Base Excess ABG Hemoglobin Oxyhemoglobin Sodium Potassium Chloride Carbon Dioxide BUN Creatinine Glucose POC Glucose 122 H 122 H 134 H Lactic Acid Calcium Ionized Calcium Phosphorus Magnesium Total Bilirubin AST ALT Alkaline Phosphatase Ammonia Total Creatine Kinase CK-MB (CK-2) CK-MB (CK-2) Rel Index Total Protein Albumin Urine WBC (Auto) Vancomycin Trough Salicylates Acetaminophen Plasma/Serum Alcohol Crossmatch 01/30/20 01/31/20 01/31/20 17:59 00:52 05:54 WBC RBC Hgb Hct MCH RDW Plt Count Lymph % (Auto) [place] % (Auto) [place] # Baso # Seg Neutrophils % Seg Neuts % (Manual) Lymphocytes % (Manual) Monocytes % (Manual) Seg Neutrophils # Seg Neutrophils # Man Lymphocytes # (Manual) Monocytes # (Manual) Eosinophils # (Manual) Basophils # (Manual) PT INR APTT ABG pH ABG pO2 ABG HCO3 ABG O2 Saturation ABG Base Excess ABG Hemoglobin Oxyhemoglobin Sodium Potassium Chloride Carbon Dioxide BUN Creatinine Glucose POC Glucose 116 H 127 H 127 H Lactic Acid Calcium Ionized Calcium Phosphorus Magnesium Total Bilirubin AST ALT Alkaline Phosphatase Ammonia Total Creatine Kinase CK-MB (CK-2) CK-MB (CK-2) Rel Index Total Protein Albumin Urine WBC (Auto) Vancomycin Trough Salicylates Acetaminophen Plasma/Serum Alcohol Crossmatch 01/31/20 02/03/20 02/03/20 12:20 05:59 05:59 WBC RBC 3.48 L Hgb Hct 29.9 L MCH RDW 16.2 H Plt Count 707 H Lymph % (Auto) [place] % (Auto) 9.3 H [place] # 0.9 H Baso # Seg Neutrophils % Seg Neuts % (Manual) Lymphocytes % (Manual) Monocytes % (Manual) Seg Neutrophils # Seg Neutrophils # Man Lymphocytes # (Manual) Monocytes # (Manual) Eosinophils # (Manual) Basophils # (Manual) PT INR APTT ABG pH ABG pO2 ABG HCO3 ABG O2 Saturation ABG Base Excess ABG Hemoglobin Oxyhemoglobin Sodium 136 L Potassium Chloride 93.4 L Carbon Dioxide BUN 20 H Creatinine 0.5 L Glucose 101 H POC Glucose 126 H Lactic Acid Calcium 10.8 H Ionized Calcium Phosphorus Magnesium Total Bilirubin AST ALT Alkaline Phosphatase Ammonia Total Creatine Kinase CK-MB (CK-2) CK-MB (CK-2) Rel Index Total Protein Albumin Urine WBC (Auto) Vancomycin Trough Salicylates Acetaminophen Plasma/Serum Alcohol Crossmatch Allied health notes reviewed: nursing
[2020-02-04] MEDS: ONDANSETRON 4 MG/2 ML INJ IV PRN (21:32)
[2020-02-04] MEDS: QUEtiapine 100 MG TAB FEEDTUBE SCH (21:33)
[2020-02-05] MEDS: LEVALBUTEROL 0.63 MG/3 ML NEBU IH SCH ×4 (02:33→20:16)
[2020-02-05] MEDS: GLYCOPYRROLATE 1 MG TAB PO SCH ×3 (09:43→22:06)
[2020-02-05] MEDS: hydrOXYzine PAMOATE 25 MG CAP PO SCH ×2 (09:43→22:06)
[2020-02-05] MEDS: MIRTAZAPINE 30 MG TAB PO SCH (09:43)
[2020-02-05] MEDS: SERTRALINE 50 MG TAB PO SCH (09:43)
[2020-02-05] MEDS: TAMSULOSIN 0.4 MG CAP PO SCH (09:44)
[2020-02-05] MEDS: levETIRAcetam 500 MG/5 ML ORAL LIQD PO SCH ×2 (09:44→22:06)
[2020-02-05] MEDS: LANSOPRAZOLE 30 MG SOLUTAB FEEDTUBE SCH (09:44)
--- NOTE | 2020-02-05 18:51 | XRay Report ---
ABDOMEN 1 VIEW(S) INDICATION / CLINICAL INFORMATION: distension. COMPARISON: 12/18/2019 FINDINGS: TUBES / LINES: Peg tube terminates in the left upper quadrant. There is suggestion of a rectal tube w hich is partially imaged, correlate with the patient. BOWEL GAS PATTERN: There is a large amount of fecal matter throughout the length of the colon and rec christine. No dilated bowel is appreciated. FREE AIR / EXTRALUMINAL GAS: None seen. ADDITIONAL FINDINGS: No significant additional findings. IMPRESSION: Moderate to severe fecal retention. Signer Name: Eran Hi Jr, MD Signed: 02/05/2020 11:06 AM Workstation Name: [id number]
[2020-02-05] MEDS: ONDANSETRON 4 MG/2 ML INJ IV PRN (22:06)
[2020-02-05] MEDS: QUEtiapine 100 MG TAB FEEDTUBE SCH (22:06)
[2020-02-05] MEDS: ACETAMINOPHEN 325 MG/10.15 ML ORAL LIQD UNIT DOSE FEEDTUBE PRN (22:07)
[2020-02-06] MEDS: LEVALBUTEROL 0.63 MG/3 ML NEBU IH SCH ×4 (01:25→21:17)
[2020-02-06] MEDS: GLYCOPYRROLATE 1 MG TAB PO SCH ×3 (10:53→20:27)
[2020-02-06] MEDS: MIRTAZAPINE 30 MG TAB PO SCH (10:53)
[2020-02-06] MEDS: levETIRAcetam 500 MG/5 ML ORAL LIQD PO SCH ×2 (10:53→22:50)
[2020-02-06] MEDS: TAMSULOSIN 0.4 MG CAP PO SCH (10:54)
[2020-02-06] MEDS: hydrOXYzine PAMOATE 25 MG CAP PO SCH ×2 (10:54→22:51)
[2020-02-06] MEDS: SERTRALINE 50 MG TAB PO SCH (10:54)
[2020-02-06] MEDS: LANSOPRAZOLE 30 MG SOLUTAB FEEDTUBE SCH (10:54)
[2020-02-06] MEDS ORDERED: POLYETHYLENE GLYCOL 3350 17 GM POWDER PO PRN (13:57)
--- NOTE | 2020-02-06 13:59 | Progress Note ---
Assessment and Plan / Anoxic brain injury: suspected CT head: No acute abnormality. EEG ordered showed Generalized slowing. No seizures or epileptiform activity. Per neurology : Patient found to have intact corneal/VOR/cough reflexes, and is withdrawing lower extremities, given that patient had an out of hospital cardiac arrest, the time of which is uncertain, the likelihood of meaningful neurological recovery is somewhat low. -Patient now opening her eyes, can speak and able to follow minor command by nodding head /Acute Respiratory failure -s/p intubation, s/p trach and PEG on 12/12 with mechanical ventilation, now on T-piece - CTA was done and negative for PE, - Echo quality is poor, showed diastolic dysfunction - continue weaning as tolerated /Anemia, microcytic - Status post 3 units PRBC transfusion, H&H low stable /Acute metabolic encephalopathy/toxic encephalopathy due to the above - cont supportive care /Hyperammonemia - likely from liver disease related to EtOH abuse - Patient had elevated ammonia level and treated with lactulose /Metabolic Acidosis -Alcohol ketoacidosis vs hypoprofusion -Continue to monitor /ELevated LFTs, stable now - due to ischemic hepatitis. /Leucocytosis with sepsis - Source MRSA bacteremia and MSSA pneumonia. UA showed pyuria. RUQ US showed no ascites. - Repeat TTE negative for vegetation. Completed 7 days of Ceftriaxone on 11/29/2019. -Treated with Abx vancomycin 1 gm IV q 12 hour total 2 week till 12/30/2019 /MSSA pneumonia: Status post vancomycin till 12/30/2019 /ALcohol USe Disorder - given ongoing Alcohol use almost daily, s/p IV Thiamine - monitor /Severe hypokalemia -Repleted /Seizure disorder: treat with Keppra /H. Influenzae, tracheobronchitis, treated with abx /Moderate to severe fecal impaction - will add stool softner DNR CODE STATUS Disposition: prognosis guarded. Family okay for DNR, PT recommended subacute rehab, discharge pending on placement. negative for COVID 19 Brief History: 54-year-old female with a past medical history of Hypertension, Depression, Tobacco use Disorder, Alcohol use Disorder as confirmed by Daughter and pt's mother presents to the hospital status post cardiac arrest at home. EMS found pt in [place]. They were unable to intubate patient with a ET tube because she was clenching down therefore Joe airway placed. Per the ED physician who evaluated pt, Patient presented with a pulse, intermittent respirations, and bagging support via Joe airway with O2 sat of 100%. Accu-Chek of 71 obtained by EMS. She was intubated in the ER and called for admission. Following admission patient was diagnosed with anoxic brain injury, sepsis with MRSA bacteremia and MSSA pneumonia, alcoholic liver disease. Family member initially wished for full code then changed to DNR, patient treated with IV antibiotics for sepsis, status post trach and PEG on 12/13/19. Weaned off from the vent and put on T- piece. Patient is uninsured, waiting for placement, guarded prognosis. Physical exam: General appearance: Present: other (elderly female, open eyes) - EENT Eyes: no scleral icterus, no conjunctival injection, pupil not reactive ENT: clear oral mucosa, dentition normal, no oropharyngeal erythema Ears: bilateral: normal - Neck Neck: trach on place - Respiratory Respiratory effort: other (on T-piece) Respiratory: bilateral: rales - Cardiovascular Rhythm: regular Heart Sounds: Present: S1 & S2. Absent: gallop, rub Extremities: pulses intact, No edema, normal color - Gastrointestinal General gastrointestinal: Present: soft, non-tender, non-distended, normal bowel sounds - Integumentary Integumentary: clear, warm, dry - Musculoskeletal Musculoskeletal: No joint swelling or tenderness - Neurologic Neurologic: other (2+ reflexes throughout). respond to commend and nods head. generalized weakness, verbal - Psychiatric Psychiatric: co-operative Subjective Date of service: 02/06/20 Principal diagnosis: Ac cardiopulmonary arrest; Ac hypoxemic resp failure; Acute encephalopathy Interval history: Patient seen and examined medical records reviewed Patient is alert and awake not in acute distress Tracheostomy on T-piece, Vital signs noted discharge pending on placement, negative for COVID 19 Objective - Constitutional Vitals: Vital Signs - 12hr 02/06/20 02/06/20 02/06/20 03:31 09:10 09:20 Temperature 97.5 F L 98.4 F Pulse Rate 103 H 76 101 H Pulse Rate [ From Monitor] Respiratory 18 20 Rate Blood Pressure 129/87 118/76 Blood Pressure 76/49 [Left] O2 Sat by Pulse 99 98 Oximetry 02/06/20 02/06/20 10:00 11:12 Temperature 98.3 F Pulse Rate 94 H Pulse Rate [ 121 H From Monitor] Respiratory 22 20 Rate Blood Pressure 122/88 Blood Pressure [Left] O2 Sat by Pulse 97 92 Oximetry - Labs CBC & Chem 7: 02/03/20 05:59 02/03/20 05:59 Labs: Abnormal lab results 02/05/20 02/06/20 Range/Units 23:24 05:50 POC Glucose 158 H 110 H (70-105) HEART Score - HEART Score Troponin: Troponin T < 0.010 ng/mL (0.00-0.029) 11/22/19 23:27
[2020-02-06] MEDS: DOCUSATE SODIUM 100 MG CAP PO SCH (22:51)
[2020-02-06] MEDS: QUEtiapine 100 MG TAB FEEDTUBE SCH (22:51)
[2020-02-07] MEDS: LEVALBUTEROL 0.63 MG/3 ML NEBU IH SCH ×4 (03:27→20:17)
[2020-02-07] MEDS: GLYCOPYRROLATE 1 MG TAB PO SCH ×3 (08:00→22:10)
[2020-02-07] MEDS: levETIRAcetam 500 MG/5 ML ORAL LIQD PO SCH ×2 (09:46→22:10)
[2020-02-07] MEDS: TAMSULOSIN 0.4 MG CAP PO SCH (09:46)
[2020-02-07] MEDS: DOCUSATE SODIUM 100 MG CAP PO SCH ×2 (09:46→22:10)
[2020-02-07] MEDS: LANSOPRAZOLE 30 MG SOLUTAB FEEDTUBE SCH (09:46)
[2020-02-07] MEDS: SERTRALINE 50 MG TAB PO SCH (09:47)
[2020-02-07] MEDS: hydrOXYzine PAMOATE 25 MG CAP PO SCH ×2 (09:47→22:10)
[2020-02-07] MEDS: MIRTAZAPINE 30 MG TAB PO SCH (09:48)
--- NOTE | 2020-02-07 10:58 | Progress Note ---
Assessment and Plan / Anoxic brain injury: suspected CT head: No acute abnormality. EEG ordered showed Generalized slowing. No seizures or epileptiform activity. -Patient now opening her eyes, can speak and able to follow minor command by nodding head /Acute Respiratory failure -s/p intubation, s/p trach and PEG on 12/12 with mechanical ventilation, now on T-piece - CTA was done and negative for PE, - Echo quality is poor, showed diastolic dysfunction - continue weaning as tolerated /Anemia, microcytic - Status post 3 units PRBC transfusion, H&H low stable /Acute metabolic encephalopathy/toxic encephalopathy due to the above - cont supportive care /Hyperammonemia - likely from liver disease related to EtOH abuse - Patient had elevated ammonia level and treated with lactulose /Metabolic Acidosis -Alcohol ketoacidosis vs hypoprofusion -Continue to monitor /ELevated LFTs, stable now - due to ischemic hepatitis. /Leucocytosis with sepsis - Source MRSA bacteremia and MSSA pneumonia. UA showed pyuria. RUQ US showed no ascites. - Repeat TTE negative for vegetation. Completed 7 days of Ceftriaxone on 11/29/2019. -Treated with Abx vancomycin 1 gm IV q 12 hour total 2 week till 12/30/2019 /MSSA pneumonia: Status post vancomycin till 12/30/2019 /ALcohol USe Disorder - given ongoing Alcohol use almost daily, s/p IV Thiamine - monitor /Severe hypokalemia -Repleted /Seizure disorder: treat with Keppra /H. Influenzae, tracheobronchitis, treated with abx /Moderate to severe fecal impaction - will add stool softner DNR CODE STATUS Disposition: prognosis guarded. Family okay for DNR, PT recommended subacute rehab, discharge pending on placement. negative for COVID 19 Brief History: 54-year-old female with a past medical history of Hypertension, Depression, Tobacco use Disorder, Alcohol use Disorder as confirmed by Daughter and pt's mother presents to the hospital status post cardiac arrest at home. EMS found pt [place]. They were unable to intubate patient with a ET tube because she was clenching down therefore Joe airway placed. Per the ED physician who evaluated pt, Patient presented with a pulse, intermittent respirations, and bagging support via Joe airway with O2 sat of 100%. Accu-Chek of 71 obtained by EMS. She was intubated in the ER and called for admission. Following admission patient was diagnosed with anoxic brain injury, sepsis with MRSA bacteremia and MSSA pneumonia, alcoholic liver disease. Family member initially wished for full code then changed to DNR, patient treated with IV antibiotics for sepsis, status post trach and PEG on 12/13/19. Weaned off from the vent and put on T- piece. Patient is uninsured, waiting for placement, guarded prognosis. Physical exam: General appearance: Present: other (elderly female, open eyes) - EENT Eyes: no scleral icterus, no conjunctival injection, pupil not reactive ENT: clear oral mucosa, dentition normal, no oropharyngeal erythema Ears: bilateral: normal - Neck Neck: trach on place - Respiratory Respiratory effort: other (on T-piece) Respiratory: bilateral: rales - Cardiovascular Rhythm: regular Heart Sounds: Present: S1 & S2. Absent: gallop, rub Extremities: pulses intact, No edema, normal color - Gastrointestinal General gastrointestinal: Present: soft, non-tender, non-distended, normal bowel sounds - Integumentary Integumentary: clear, warm, dry - Musculoskeletal Musculoskeletal: No joint swelling or tenderness - Neurologic Neurologic: other (2+ reflexes throughout). respond to commend and nods head. generalized weakness, verbal - Psychiatric Psychiatric: co-operative Subjective Date of service: 02/07/20 Principal diagnosis: Ac cardiopulmonary arrest; Ac hypoxemic resp failure; Acute encephalopathy Interval history: Patient seen and examined medical records reviewed Patient is alert and awake not in acute distress Tracheostomy on T-piece, Vital signs noted discharge pending on placement, negative for COVID 19 Objective - Constitutional Vitals: Vital Signs - 12hr 02/07/20 02/07/20 02/07/20 00:02 00:03 03:27 Temperature 98.6 F Pulse Rate 110 H Pulse Rate [ Anterior Bilateral Throughout] Respiratory 20 Rate Respiratory Rate [Anterior Bilateral Throughout] Blood Pressure 129/83 O2 Sat by Pulse 100 Oximetry O2 Sat by Pulse 100 Oximetry [ Assessment] 02/07/20 02/07/20 02/07/20 03:38 04:09 04:10 Temperature 98.3 F Pulse Rate 97 H Pulse Rate [ 105 H Anterior Bilateral Throughout] Respiratory 18 Rate Respiratory 20 Rate [Anterior Bilateral Throughout] Blood Pressure 113/61 O2 Sat by Pulse 100 Oximetry O2 Sat by Pulse Oximetry [ Assessment] 02/07/20 08:37 Temperature 97.8 F Pulse Rate 94 H Pulse Rate [ Anterior Bilateral Throughout] Respiratory 18 Rate Respiratory Rate [Anterior Bilateral Throughout] Blood Pressure 124/82 O2 Sat by Pulse 100 Oximetry O2 Sat by Pulse Oximetry [ Assessment] - Labs CBC & Chem 7: 02/03/20 05:59 02/03/20 05:59 Labs: Abnormal lab results 02/06/20 02/07/20 02/07/20 Range/Units 16:03 00:13 05:27 POC Glucose 130 H 115 H 115 H (70-105) HEART Score - HEART Score Troponin: Troponin T < 0.010 ng/mL (0.00-0.029) 11/22/19 23:27
[2020-02-07] MEDS: QUEtiapine 100 MG TAB FEEDTUBE SCH (22:10)
[2020-02-08] MEDS: LEVALBUTEROL 0.63 MG/3 ML NEBU IH SCH ×4 (05:27→21:32)
[2020-02-08 08:08] LABS: Hematocrit 31.7 % (30.3-42.9); Hemoglobin 10.7 gm/dl (10.1-14.3)
[2020-02-08 08:46] LABS: BUN/Creatinine Ratio TNR; Blood Urea Nitrogen TNR mg/dL (7-17); Calcium TNR mg/dL (8.4-10.2)
[2020-02-08 08:47] LABS: Hemolysis Index TNR
[2020-02-08] MEDS: hydrOXYzine PAMOATE 25 MG CAP PO SCH ×2 (09:39→22:21)
[2020-02-08] MEDS: LANSOPRAZOLE 30 MG SOLUTAB FEEDTUBE SCH (09:40)
[2020-02-08] MEDS: SERTRALINE 50 MG TAB PO SCH (09:40)
[2020-02-08] MEDS: levETIRAcetam 500 MG/5 ML ORAL LIQD PO SCH ×2 (09:41→22:20)
[2020-02-08] MEDS: MIRTAZAPINE 30 MG TAB PO SCH (09:54)
[2020-02-08] MEDS: GLYCOPYRROLATE 1 MG TAB PO SCH ×3 (09:54→22:20)
[2020-02-08 10:11] LABS: BUN/Creatinine Ratio 53; Blood Urea Nitrogen 21 mg/dL (7-17); Calcium 10.4 mg/dL (8.4-10.2); Hemolysis Index 5
[2020-02-08] MEDS: TAMSULOSIN 0.4 MG CAP PO SCH (12:44)
[2020-02-08] MEDS: DOCUSATE SODIUM 100 MG CAP PO SCH ×2 (12:44→22:22)
--- NOTE | 2020-02-08 14:24 | Progress Note ---
Assessment and Plan Acute cardiopulmonary arrest with ROSC Acute hypoxemic respiratory failure on MVS Acute metabolic-toxic encephalopathy Metabolic acidosis/alcoholic acidosis/Lactic acidosis Ischemic hepatitis Leucocytosis with lactic acidosis Tobacco use disorder ALcohol use Disorder Hypokalemia High grade fevers - resume scopolamine patch - resume mucomyst nebs X 72 hours - continue PMV trials as tolerated - advance diet per [employer] - no new issues; continue care as below otherwise - repeat CXR prn at this point - Continue to wean supplemental oxygen for target O2 sat's > 90% - continue bronchodilators with routine trach care and pulmonary hygiene per RT - Slow Seroquel taper - consider Provigil - s/p Antibiotics per ID recommendations - continue Reglan for G.I. motility - Continue VTE and Stress ulcer prophylaxis - Continue enteric nutritional support - Monitor glycemic control, with target blood glucose 140-180 mg/dL while critically ill (Avoid hypoglycemia) - ABG and CXR prn - Continue to avoid nephrotoxins, adjust all medications fro GFR and CrCL - Continue to avoid benzodiazepines , as much as possible, to reduce the possibility of delirium - Continue prn analgesia per CPOT score - Continue to maintain of sleep-wake cycle, avoid delirium - PT/OT/ROM exercises- awaiting PT/OT evaluation - Continue mobility protocol and skin assessment per protocol for pressure ulcer prevention - Continue to monitor for clinical seizures - Continue Nicotine withdrawal precautions, alcohol withdrawal precautions - continue other care per attending / other consultants - continue discharge planning ..... re-evaluate in am & prn CONDITION: FAIR PROGNOSIS: IMPROVED CODE STATUS: FULL CODE Subjective Date of service: 02/08/20 Principal diagnosis: Ac cardiopulmonary arrest; Ac hypoxemic resp failure; Acute encephalopathy Interval history: Patient is seen today for: Acute cardiopulmonary arrest with ROSC; Acute hypoxemic respiratory failure; Acute metabolic-toxic encephalopathy; Ischemic hepatitis; Leucocytosis with lactic acidosis; Tobacco use disorder; Alcohol use Disorder; Hypokalemia; High grade fevers Seen and examined at bedside; 24hour events reviewed; nursing and respiratory care staff consulted; no adverse overnight events reported to me; resting peacefully in bed; remains in mittens; tries to pull at medical equipment; secretions copious Objective Vital Signs - 12hr 02/08/20 02/08/20 02/08/20 06:12 08:20 08:21 Temperature 98.6 F Pulse Rate 85 Pulse Rate [ 126 H Posterior Bilateral Throughout] Respiratory 20 Rate Respiratory 20 Rate [Posterior Bilateral Throughout] Blood Pressure Blood Pressure 121/75 [Left] O2 Sat by Pulse 100 98 Oximetry O2 Sat by Pulse Oximetry [ Assessment] 02/08/20 02/08/20 02/08/20 09:20 14:01 14:11 Temperature 97.7 F Pulse Rate 104 H Pulse Rate [ 124 H Posterior Bilateral Throughout] Respiratory 18 Rate Respiratory 20 Rate [Posterior Bilateral Throughout] Blood Pressure 121/80 Blood Pressure [Left] O2 Sat by Pulse 100 Oximetry O2 Sat by Pulse 100 Oximetry [ Assessment] Constitutional: no acute distress, other (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, with midline tracheostomy and with normal respiratory effort aT REST) Eyes: non-icteric ENT: oropharynx moist, other (s/p trach) Neck: supple, no lymphadenopathy, no JVD Effort: mildly labored Ascultation: Bilateral: diminished breath sounds, rhonchi Percussion: Bilateral: not dull Cardiovascular: regular rate and rhythm (tachycardia), other (S1,S2) Gastrointestinal: normoactive bowel sounds, soft, non-tender, non-distended Integumentary: normal Extremities: no cyanosis, no edema, pulses normal, no ischemia or petechiae Neurologic: other (awake; following simple commands) Psychiatric: anxious CBC and BMP: 02/08/20 07:55 02/08/20 08:52 ABG, PT/INR, D-dimer: ABG ABG pH 7.429 pH Units (7.350-7.450) 01/09/20 08:51 ABG pCO2 39.1 mm Hg 01/09/20 08:51 ABG pO2 94.3 mm Hg (80.0-90.0) H 01/09/20 08:51 ABG O2 Saturation 97.4 % (95.0-99.0) 01/09/20 08:51 PT/INR, D-dimer PT 17.0 Sec. (12.2-14.9) H 11/23/19 03:47 INR 1.36 (0.87-1.13) H 11/23/19 03:47 Abnormal lab findings: Abnormal Labs 11/22/19 11/22/19 11/22/19 23:17 23:18 23:27 WBC 21.2 H RBC 3.59 L Hgb 9.8 L Hct MCH 27 L RDW 18.6 H Plt Count 454 H Lymph % (Auto) Sampson % (Auto) Sampson # Baso # Seg Neutrophils % Seg Neuts % (Manual) 86.0 H Lymphocytes % (Manual) 9.0 L Monocytes % (Manual) Seg Neutrophils # Seg Neutrophils # Man 18.2 H Lymphocytes # (Manual) Monocytes # (Manual) 1.1 H Eosinophils # (Manual) Basophils # (Manual) PT INR APTT ABG pH ABG pO2 ABG HCO3 ABG O2 Saturation ABG Base Excess ABG Hemoglobin Oxyhemoglobin Sodium Potassium Chloride Carbon Dioxide BUN Creatinine Glucose POC Glucose 53 L Lactic Acid Calcium Ionized Calcium Phosphorus Magnesium Total Bilirubin AST ALT Alkaline Phosphatase Ammonia Total Creatine Kinase CK-MB (CK-2) CK-MB (CK-2) Rel Index Total Protein Albumin Urine WBC (Auto) 40.0 H Vancomycin Trough Salicylates Acetaminophen Plasma/Serum Alcohol Crossmatch 11/22/19 11/22/19 11/22/19 23:27 23:27 23:27 WBC RBC Hgb Hct MCH RDW Plt Count Lymph % (Auto) Sampson % (Auto) Sampson # Baso # Seg Neutrophils % Seg Neuts % (Manual) Lymphocytes % (Manual) Monocytes % (Manual) Seg Neutrophils # Seg Neutrophils # Man Lymphocytes # (Manual) Monocytes # (Manual) Eosinophils # (Manual) Basophils # (Manual) PT INR APTT ABG pH ABG pO2 ABG HCO3 ABG O2 Saturation ABG Base Excess ABG Hemoglobin Oxyhemoglobin Sodium Potassium 2.4 L* Chloride 85.1 L Carbon Dioxide 19 L BUN Creatinine 0.5 L Glucose 261 H POC Glucose Lactic Acid Calcium Ionized Calcium Phosphorus Magnesium Total Bilirubin AST 609 H ALT 152 H Alkaline Phosphatase 160 H Ammonia 117.0 H Total Creatine Kinase 139 H CK-MB (CK-2) 8.3 H CK-MB (CK-2) Rel Index 5.9 H Total Protein Albumin 3.6 L Urine WBC (Auto) Vancomycin Trough Salicylates < 0.3 L Acetaminophen Plasma/Serum Alcohol Crossmatch 11/22/19 11/22/19 11/23/19 23:27 23:27 01:10 WBC RBC Hgb Hct MCH RDW Plt Count Lymph % (Auto) Sampson % (Auto) Sampson # Baso # Seg Neutrophils % Seg Neuts % (Manual) Lymphocytes % (Manual) Monocytes % (Manual) Seg Neutrophils # Seg Neutrophils # Man Lymphocytes # (Manual) Monocytes # (Manual) Eosinophils # (Manual) Basophils # (Manual) PT INR APTT ABG pH 7.273 L ABG pO2 209.7 H ABG HCO3 ABG O2 Saturation 99.2 H ABG Base Excess -3.9 L ABG Hemoglobin 10.6 L Oxyhemoglobin 93.9 L Sodium Potassium Chloride Carbon Dioxide BUN Creatinine Glucose POC Glucose Lactic Acid Calcium Ionized Calcium Phosphorus Magnesium Total Bilirubin AST ALT Alkaline Phosphatase Ammonia Total Creatine Kinase CK-MB (CK-2) CK-MB (CK-2) Rel Index Total Protein Albumin Urine WBC (Auto) Vancomycin Trough Salicylates Acetaminophen < 5.0 L Plasma/Serum Alcohol 0.08 H Crossmatch 11/23/19 11/23/19 11/23/19 01:19 01:19 03:47 WBC RBC Hgb Hct MCH RDW Plt Count Lymph % (Auto) Sampson % (Auto) Sampson # Baso # Seg Neutrophils % Seg Neuts % (Manual) Lymphocytes % (Manual) Monocytes % (Manual) Seg Neutrophils # Seg Neutrophils # Man Lymphocytes # (Manual) Monocytes # (Manual) Eosinophils # (Manual) Basophils # (Manual) PT 16.3 H INR 1.29 H APTT ABG pH ABG pO2 ABG HCO3 ABG O2 Saturation ABG Base Excess ABG Hemoglobin Oxyhemoglobin Sodium Potassium Chloride Carbon Dioxide BUN Creatinine Glucose POC Glucose Lactic Acid 2.10 H* 5.00 H* Calcium Ionized Calcium Phosphorus Magnesium Total Bilirubin AST ALT Alkaline Phosphatase Ammonia Total Creatine Kinase CK-MB (CK-2) CK-MB (CK-2) Rel Index Total Protein Albumin Urine WBC (Auto) Vancomycin Trough Salicylates Acetaminophen Plasma/Serum Alcohol Crossmatch 11/23/19 11/23/19 11/23/19 03:47 03:47 04:53 WBC RBC Hgb 9.4 L Hct MCH RDW Plt Count Lymph % (Auto) Sampson % (Auto) Sampson # Baso # Seg Neutrophils % Seg Neuts % (Manual) Lymphocytes % (Manual) Monocytes % (Manual) Seg Neutrophils # Seg Neutrophils # Man Lymphocytes # (Manual) Monocytes # (Manual) Eosinophils # (Manual) Basophils # (Manual) PT 17.0 H INR 1.36 H APTT 128.2 H* ABG pH ABG pO2 ABG HCO3 ABG O2 Saturation ABG Base Excess ABG Hemoglobin Oxyhemoglobin Sodium Potassium Chloride Carbon Dioxide 18 L BUN Creatinine 0.5 L Glucose 105 H POC Glucose Lactic Acid Calcium 8.3 L Ionized Calcium Phosphorus 2.40 L Magnesium Total Bilirubin 1.30 H AST 761 H ALT 158 H Alkaline Phosphatase 143 H Ammonia Total Creatine Kinase CK-MB (CK-2) CK-MB (CK-2) Rel Index Total Protein Albumin 2.8 L Urine WBC (Auto) Vancomycin Trough Salicylates Acetaminophen Plasma/Serum Alcohol Crossmatch 11/23/19 11/23/19 11/23/19 05:12 06:32 06:32 WBC 16.8 H RBC 3.31 L Hgb 8.9 L Hct 28.7 L MCH 27 L RDW 18.6 H Plt Count Lymph % (Auto) Sampson % (Auto) Sampson # Baso # Seg Neutrophils % Seg Neuts % (Manual) 94.0 H Lymphocytes % (Manual) 1.0 L Monocytes % (Manual) Seg Neutrophils # Seg Neutrophils # Man 15.8 H Lymphocytes # (Manual) 0.2 L Monocytes # (Manual) Eosinophils # (Manual) Basophils # (Manual) PT INR APTT ABG pH ABG pO2 ABG HCO3 ABG O2 Saturation ABG Base Excess -3.2 L ABG Hemoglobin 9.0 L Oxyhemoglobin 93.6 L Sodium Potassium Chloride Carbon Dioxide BUN Creatinine Glucose POC Glucose Lactic Acid Calcium Ionized Calcium 4.5 L Phosphorus Magnesium Total Bilirubin AST ALT Alkaline Phosphatase Ammonia Total Creatine Kinase CK-MB (CK-2) CK-MB (CK-2) Rel Index Total Protein Albumin Urine WBC (Auto) Vancomycin Trough Salicylates Acetaminophen Plasma/Serum Alcohol Crossmatch 11/23/19 11/24/19 11/24/19 06:32 04:35 04:35 WBC RBC Hgb Hct MCH RDW Plt Count Lymph % (Auto) Sampson % (Auto) Sampson # Baso # Seg Neutrophils % Seg Neuts % (Manual) Lymphocytes % (Manual) Monocytes % (Manual) Seg Neutrophils # Seg Neutrophils # Man Lymphocytes # (Manual) Monocytes # (Manual) Eosinophils # (Manual) Basophils # (Manual) PT INR APTT ABG pH ABG pO2 ABG HCO3 ABG O2 Saturation ABG Base Excess ABG Hemoglobin Oxyhemoglobin Sodium Potassium Chloride Carbon Dioxide BUN Creatinine Glucose POC Glucose Lactic Acid 3.30 H* Calcium Ionized Calcium Phosphorus Magnesium 1.40 L Total Bilirubin AST ALT Alkaline Phosphatase Ammonia 98.0 H Total Creatine Kinase CK-MB (CK-2) CK-MB (CK-2) Rel Index Total Protein Albumin Urine WBC (Auto) Vancomycin Trough Salicylates Acetaminophen Plasma/Serum Alcohol Crossmatch 11/24/19 11/25/19 11/25/19 05:22 04:34 05:05 WBC 17.3 H RBC 2.88 L Hgb 7.8 L Hct 24.6 L MCH 27 L RDW 18.5 H Plt Count Lymph % (Auto) 7.7 L Sampson % (Auto) 9.7 H Sampson # 1.7 H Baso # Seg Neutrophils % 82.2 H Seg Neuts % (Manual) Lymphocytes % (Manual) Monocytes % (Manual) Seg Neutrophils # 14.2 H Seg Neutrophils # Man Lymphocytes # (Manual) Monocytes # (Manual) Eosinophils # (Manual) Basophils # (Manual) PT INR APTT ABG pH 7.475 H ABG pO2 ABG HCO3 29.4 H 32.3 H ABG O2 Saturation ABG Base Excess 5.4 H 6.9 H ABG Hemoglobin 9.0 L 10.6 L Oxyhemoglobin 94.3 L Sodium Potassium Chloride Carbon Dioxide BUN Creatinine Glucose POC Glucose Lactic Acid Calcium Ionized Calcium Phosphorus Magnesium Total Bilirubin AST ALT Alkaline Phosphatase Ammonia Total Creatine Kinase CK-MB (CK-2) CK-MB (CK-2) Rel Index Total Protein Albumin Urine WBC (Auto) Vancomycin Trough Salicylates Acetaminophen Plasma/Serum Alcohol Crossmatch 11/25/19 11/25/19 11/26/19 05:05 22:46 03:31 WBC RBC Hgb Hct MCH RDW Plt Count Lymph % (Auto) Sampson % (Auto) Sampson # Baso # Seg Neutrophils % Seg Neuts % (Manual) Lymphocytes % (Manual) Monocytes % (Manual) Seg Neutrophils # Seg Neutrophils # Man Lymphocytes # (Manual) Monocytes # (Manual) Eosinophils # (Manual) Basophils # (Manual) PT INR APTT ABG pH 7.459 H ABG pO2 ABG HCO3 34.2 H ABG O2 Saturation ABG Base Excess 9.4 H ABG Hemoglobin 7.6 L Oxyhemoglobin 94.8 L Sodium 152 H D 147 H Potassium 2.3 L* D 2.8 L* D Chloride 107.8 H Carbon Dioxide 31 H D 33 H BUN Creatinine 0.6 L 0.6 L Glucose 148 H 177 H POC Glucose Lactic Acid Calcium Ionized Calcium Phosphorus Magnesium Total Bilirubin AST 105 H ALT 71 H Alkaline Phosphatase 155 H Ammonia Total Creatine Kinase CK-MB (CK-2) CK-MB (CK-2) Rel Index Total Protein 5.2 L D Albumin 2.9 L Urine WBC (Auto) Vancomycin Trough Salicylates Acetaminophen Plasma/Serum Alcohol Crossmatch 11/26/19 11/26/19 11/27/19 08:24 08:24 04:20 WBC 12.0 H RBC 3.00 L Hgb 8.0 L 9.3 L Hct 25.9 L 29.7 L MCH 27 L RDW 18.5 H Plt Count Lymph % (Auto) Sampson % (Auto) Sampson # Baso # Seg Neutrophils % Seg Neuts % (Manual) 89.0 H Lymphocytes % (Manual) 4.0 L Monocytes % (Manual) Seg Neutrophils # Seg Neutrophils # Man 10.7 H Lymphocytes # (Manual) 0.5 L Monocytes # (Manual) Eosinophils # (Manual) Basophils # (Manual) PT INR APTT ABG pH ABG pO2 ABG HCO3 ABG O2 Saturation ABG Base Excess ABG Hemoglobin Oxyhemoglobin Sodium 146 H Potassium 3.4 L D Chloride Carbon Dioxide BUN Creatinine 0.5 L Glucose 165 H POC Glucose Lactic Acid Calcium Ionized Calcium Phosphorus Magnesium Total Bilirubin AST 57 H ALT Alkaline Phosphatase 166 H Ammonia Total Creatine Kinase CK-MB (CK-2) CK-MB (CK-2) Rel Index Total Protein Albumin 2.9 L Urine WBC (Auto) Vancomycin Trough Salicylates Acetaminophen Plasma/Serum Alcohol Crossmatch 11/27/19 11/27/19 11/27/19 04:28 04:28 04:42 WBC RBC Hgb Hct MCH RDW Plt Count Lymph % (Auto) Sampson % (Auto) Sampson # Baso # Seg Neutrophils % Seg Neuts % (Manual) Lymphocytes % (Manual) Monocytes % (Manual) Seg Neutrophils # Seg Neutrophils # Man Lymphocytes # (Manual) Monocytes # (Manual) Eosinophils # (Manual) Basophils # (Manual) PT INR APTT ABG pH 7.470 H ABG pO2 74.0 L ABG HCO3 33.8 H ABG O2 Saturation ABG Base Excess 9.1 H ABG Hemoglobin 8.7 L Oxyhemoglobin 94.7 L Sodium 146 H Potassium 2.9 L* Chloride Carbon Dioxide BUN 25 H Creatinine Glucose 213 H POC Glucose Lactic Acid Calcium Ionized Calcium Phosphorus 1.00 L Magnesium Total Bilirubin AST ALT Alkaline Phosphatase Ammonia Total Creatine Kinase CK-MB (CK-2) CK-MB (CK-2) Rel Index Total Protein Albumin Urine WBC (Auto) Vancomycin Trough Salicylates Acetaminophen Plasma/Serum Alcohol Crossmatch 11/27/19 11/27/19 11/27/19 05:37 12:20 15:46 WBC RBC Hgb Hct MCH RDW Plt Count Lymph % (Auto) Sampson % (Auto) Sampson # Baso # Seg Neutrophils % Seg Neuts % (Manual) Lymphocytes % (Manual) Monocytes % (Manual) Seg Neutrophils # Seg Neutrophils # Man Lymphocytes # (Manual) Monocytes # (Manual) Eosinophils # (Manual) Basophils # (Manual) PT INR APTT ABG pH ABG pO2 ABG HCO3 ABG O2 Saturation ABG Base Excess ABG Hemoglobin Oxyhemoglobin Sodium 146 H Potassium 3.5 L D Chloride Carbon Dioxide BUN 24 H Creatinine 0.6 L Glucose 187 H POC Glucose 117 H 220 H Lactic Acid Calcium Ionized Calcium Phosphorus Magnesium Total Bilirubin AST ALT Alkaline Phosphatase Ammonia Total Creatine Kinase CK-MB (CK-2) CK-MB (CK-2) Rel Index Total Protein Albumin Urine WBC (Auto) Vancomycin Trough Salicylates Acetaminophen Plasma/Serum Alcohol Crossmatch 11/27/19 11/28/19 11/28/19 17:28 05:00 05:02 WBC RBC Hgb Hct MCH RDW Plt Count Lymph % (Auto) Sampson % (Auto) Sampson # Baso # Seg Neutrophils % Seg Neuts % (Manual) Lymphocytes % (Manual) Monocytes % (Manual) Seg Neutrophils # Seg Neutrophils # Man Lymphocytes # (Manual) Monocytes # (Manual) Eosinophils # (Manual) Basophils # (Manual) PT INR APTT ABG pH ABG pO2 72.4 L ABG HCO3 33.6 H ABG O2 Saturation 94.1 L ABG Base Excess 7.3 H ABG Hemoglobin Oxyhemoglobin 91.8 L Sodium 146 H Potassium 3.3 L Chloride Carbon Dioxide BUN 25 H Creatinine 0.6 L Glucose 176 H POC Glucose 198 H Lactic Acid Calcium Ionized Calcium Phosphorus Magnesium Total Bilirubin AST ALT Alkaline Phosphatase Ammonia Total Creatine Kinase CK-MB (CK-2) CK-MB (CK-2) Rel Index Total Protein Albumin Urine WBC (Auto) Vancomycin Trough Salicylates Acetaminophen Plasma/Serum Alcohol Crossmatch 11/28/19 11/28/19 11/29/19 05:02 18:55 10:43 WBC 15.2 H 19.0 H RBC 3.06 L 3.01 L Hgb 8.3 L 8.3 L Hct 27.0 L 26.4 L MCH 27 L RDW 19.0 H 19.7 H Plt Count 479 H 611 H Lymph % (Auto) Sampson % (Auto) Sampson # Baso # Seg Neutrophils % Seg Neuts % (Manual) 92.0 H Lymphocytes % (Manual) 2.0 L Monocytes % (Manual) Seg Neutrophils # Seg Neutrophils # Man 14.0 H Lymphocytes # (Manual) 0.3 L Monocytes # (Manual) Eosinophils # (Manual) Basophils # (Manual) PT INR APTT ABG pH ABG pO2 ABG HCO3 ABG O2 Saturation ABG Base Excess ABG Hemoglobin Oxyhemoglobin Sodium Potassium Chloride Carbon Dioxide BUN Creatinine Glucose POC Glucose 138 H Lactic Acid Calcium Ionized Calcium Phosphorus Magnesium Total Bilirubin AST ALT Alkaline Phosphatase Ammonia Total Creatine Kinase CK-MB (CK-2) CK-MB (CK-2) Rel Index Total Protein Albumin Urine WBC (Auto) Vancomycin Trough Salicylates Acetaminophen Plasma/Serum Alcohol Crossmatch 11/29/19 11/29/19 11/29/19 10:43 12:27 19:25 WBC RBC Hgb Hct MCH RDW Plt Count Lymph % (Auto) Sampson % (Auto) Sampson # Baso # Seg Neutrophils % Seg Neuts % (Manual) Lymphocytes % (Manual) Monocytes % (Manual) Seg Neutrophils # Seg Neutrophils # Man Lymphocytes # (Manual) Monocytes # (Manual) Eosinophils # (Manual) Basophils # (Manual) PT INR APTT ABG pH ABG pO2 ABG HCO3 ABG O2 Saturation ABG Base Excess ABG Hemoglobin Oxyhemoglobin Sodium Potassium 2.8 L* Chloride Carbon Dioxide BUN 20 H Creatinine 0.5 L Glucose 121 H POC Glucose 128 H 120 H Lactic Acid Calcium Ionized Calcium Phosphorus Magnesium Total Bilirubin AST ALT Alkaline Phosphatase Ammonia Total Creatine Kinase CK-MB (CK-2) CK-MB (CK-2) Rel Index Total Protein Albumin Urine WBC (Auto) Vancomycin Trough Salicylates Acetaminophen Plasma/Serum Alcohol Crossmatch 11/29/19 11/30/19 11/30/19 23:46 04:10 05:02 WBC RBC Hgb Hct MCH RDW Plt Count Lymph % (Auto) Sampson % (Auto) Sampson # Baso # Seg Neutrophils % Seg Neuts % (Manual) Lymphocytes % (Manual) Monocytes % (Manual) Seg Neutrophils # Seg Neutrophils # Man Lymphocytes # (Manual) Monocytes # (Manual) Eosinophils # (Manual) Basophils # (Manual) PT INR APTT ABG pH ABG pO2 76.3 L ABG HCO3 32.5 H ABG O2 Saturation ABG Base Excess 6.9 H ABG Hemoglobin 8.0 L Oxyhemoglobin 92.6 L Sodium Potassium Chloride Carbon Dioxide BUN Creatinine Glucose POC Glucose 116 H 128 H Lactic Acid Calcium Ionized Calcium Phosphorus Magnesium Total Bilirubin AST ALT Alkaline Phosphatase Ammonia Total Creatine Kinase CK-MB (CK-2) CK-MB (CK-2) Rel Index Total Protein Albumin Urine WBC (Auto) Vancomycin Trough Salicylates Acetaminophen Plasma/Serum Alcohol Crossmatch 11/30/19 11/30/19 11/30/19 05:25 05:25 12:59 WBC 18.4 H RBC 3.10 L Hgb 8.5 L Hct 27.5 L MCH 27 L RDW 20.9 H Plt Count 691 H Lymph % (Auto) 7.1 L Sampson % (Auto) 7.7 H Sampson # 1.4 H Baso # Seg Neutrophils % 83.4 H Seg Neuts % (Manual) Lymphocytes % (Manual) Monocytes % (Manual) Seg Neutrophils # 15.4 H Seg Neutrophils # Man Lymphocytes # (Manual) Monocytes # (Manual) Eosinophils # (Manual) Basophils # (Manual) PT INR APTT ABG pH ABG pO2 ABG HCO3 ABG O2 Saturation ABG Base Excess ABG Hemoglobin Oxyhemoglobin Sodium 146 H Potassium Chloride 107.2 H Carbon Dioxide BUN Creatinine 0.5 L Glucose 132 H POC Glucose 124 H Lactic Acid Calcium Ionized Calcium Phosphorus Magnesium Total Bilirubin AST 246 H ALT 274 H Alkaline Phosphatase 203 H Ammonia Total Creatine Kinase CK-MB (CK-2) CK-MB (CK-2) Rel Index Total Protein 5.4 L Albumin 2.9 L Urine WBC (Auto) Vancomycin Trough Salicylates Acetaminophen Plasma/Serum Alcohol Crossmatch 11/30/19 12/01/19 12/01/19 17:53 00:05 05:10 WBC RBC Hgb Hct MCH RDW Plt Count Lymph % (Auto) Sampson % (Auto) Sampson # Baso # Seg Neutrophils % Seg Neuts % (Manual) Lymphocytes % (Manual) Monocytes % (Manual) Seg Neutrophils # Seg Neutrophils # Man Lymphocytes # (Manual) Monocytes # (Manual) Eosinophils # (Manual) Basophils # (Manual) PT INR APTT ABG pH ABG pO2 ABG HCO3 ABG O2 Saturation ABG Base Excess ABG Hemoglobin Oxyhemoglobin Sodium Potassium Chloride Carbon Dioxide BUN Creatinine Glucose POC Glucose 113 H 143 H 145 H Lactic Acid Calcium Ionized Calcium Phosphorus Magnesium Total Bilirubin AST ALT Alkaline Phosphatase Ammonia Total Creatine Kinase CK-MB (CK-2) CK-MB (CK-2) Rel Index Total Protein Albumin Urine WBC (Auto) Vancomycin Trough Salicylates Acetaminophen Plasma/Serum Alcohol Crossmatch 12/01/19 12/01/19 12/01/19 05:33 08:23 08:23 WBC 22.7 H RBC 2.88 L Hgb 7.9 L Hct 25.2 L MCH 27 L RDW 21.0 H Plt Count 732 H Lymph % (Auto) Sampson % (Auto) Sampson # Baso # Seg Neutrophils % Seg Neuts % (Manual) 91.0 H Lymphocytes % (Manual) 3.0 L Monocytes % (Manual) Seg Neutrophils # Seg Neutrophils # Man 20.7 H Lymphocytes # (Manual) 0.7 L Monocytes # (Manual) 1.1 H Eosinophils # (Manual) Basophils # (Manual) PT INR APTT ABG pH ABG pO2 68.6 L ABG HCO3 34.1 H ABG O2 Saturation ABG Base Excess 9.0 H ABG Hemoglobin 6.5 L Oxyhemoglobin 94.7 L Sodium Potassium Chloride Carbon Dioxide BUN Creatinine 0.5 L Glucose 125 H POC Glucose Lactic Acid Calcium Ionized Calcium Phosphorus Magnesium Total Bilirubin AST ALT Alkaline Phosphatase Ammonia Total Creatine Kinase CK-MB (CK-2) CK-MB (CK-2) Rel Index Total Protein Albumin Urine WBC (Auto) Vancomycin Trough Salicylates Acetaminophen Plasma/Serum Alcohol Crossmatch 12/01/19 12/01/19 12/01/19 13:21 17:54 20:59 WBC RBC Hgb Hct MCH RDW Plt Count Lymph % (Auto) Sampson % (Auto) Sampson # Baso # Seg Neutrophils % Seg Neuts % (Manual) Lymphocytes % (Manual) Monocytes % (Manual) Seg Neutrophils # Seg Neutrophils # Man Lymphocytes # (Manual) Monocytes # (Manual) Eosinophils # (Manual) Basophils # (Manual) PT INR APTT ABG pH ABG pO2 78.3 L ABG HCO3 33.8 H ABG O2 Saturation 94.9 L ABG Base Excess 7.9 H ABG Hemoglobin 11.5 L Oxyhemoglobin 92.3 L Sodium Potassium Chloride Carbon Dioxide BUN Creatinine Glucose POC Glucose 111 H 115 H Lactic Acid Calcium Ionized Calcium Phosphorus Magnesium Total Bilirubin AST ALT Alkaline Phosphatase Ammonia Total Creatine Kinase CK-MB (CK-2) CK-MB (CK-2) Rel Index Total Protein Albumin Urine WBC (Auto) Vancomycin Trough Salicylates Acetaminophen Plasma/Serum Alcohol Crossmatch 12/02/19 12/03/19 12/04/19 12:55 20:00 04:26 WBC 15.2 H RBC 2.69 L Hgb 7.4 L Hct 23.6 L MCH 27 L RDW 19.9 H Plt Count 838 H Lymph % (Auto) Sampson % (Auto) Sampson # Baso # Seg Neutrophils % Seg Neuts % (Manual) Lymphocytes % (Manual) Monocytes % (Manual) Seg Neutrophils # Seg Neutrophils # Man Lymphocytes # (Manual) Monocytes # (Manual) Eosinophils # (Manual) Basophils # (Manual) PT INR APTT ABG pH ABG pO2 68.3 L ABG HCO3 33.5 H ABG O2 Saturation 93.5 L ABG Base Excess 8.4 H ABG Hemoglobin 7.3 L Oxyhemoglobin 90.9 L Sodium Potassium Chloride Carbon Dioxide BUN Creatinine Glucose POC Glucose 107 H Lactic Acid Calcium Ionized Calcium Phosphorus Magnesium Total Bilirubin AST ALT Alkaline Phosphatase Ammonia Total Creatine Kinase CK-MB (CK-2) CK-MB (CK-2) Rel Index Total Protein Albumin Urine WBC (Auto) Vancomycin Trough Salicylates Acetaminophen Plasma/Serum Alcohol Crossmatch 12/04/19 12/04/19 12/04/19 04:26 07:45 12:02 WBC 15.9 H RBC 2.88 L Hgb 7.9 L Hct 25.1 L MCH RDW 20.4 H Plt Count 839 H Lymph % (Auto) 11.3 L Sampson % (Auto) 15.2 H Sampson # 2.4 H Baso # Seg Neutrophils % 72.4 H Seg Neuts % (Manual) Lymphocytes % (Manual) Monocytes % (Manual) Seg Neutrophils # 11.5 H Seg Neutrophils # Man Lymphocytes # (Manual) Monocytes # (Manual) Eosinophils # (Manual) Basophils # (Manual) PT INR APTT ABG pH ABG pO2 ABG HCO3 ABG O2 Saturation ABG Base Excess ABG Hemoglobin Oxyhemoglobin Sodium Potassium Chloride 96.5 L Carbon Dioxide BUN 21 H Creatinine 0.6 L Glucose 107 H POC Glucose 138 H Lactic Acid Calcium Ionized Calcium Phosphorus Magnesium Total Bilirubin AST ALT Alkaline Phosphatase Ammonia Total Creatine Kinase CK-MB (CK-2) CK-MB (CK-2) Rel Index Total Protein Albumin Urine WBC (Auto) Vancomycin Trough Salicylates Acetaminophen Plasma/Serum Alcohol Crossmatch 12/04/19 12/05/19 12/05/19 18:16 11:55 18:36 WBC RBC Hgb Hct MCH RDW Plt Count Lymph % (Auto) Sampson % (Auto) Sampson # Baso # Seg Neutrophils % Seg Neuts % (Manual) Lymphocytes % (Manual) Monocytes % (Manual) Seg Neutrophils # Seg Neutrophils # Man Lymphocytes # (Manual) Monocytes # (Manual) Eosinophils # (Manual) Basophils # (Manual) PT INR APTT ABG pH ABG pO2 ABG HCO3 ABG O2 Saturation ABG Base Excess ABG Hemoglobin Oxyhemoglobin Sodium Potassium Chloride Carbon Dioxide BUN Creatinine Glucose POC Glucose 135 H 125 H 135 H Lactic Acid Calcium Ionized Calcium Phosphorus Magnesium Total Bilirubin AST ALT Alkaline Phosphatase Ammonia Total Creatine Kinase CK-MB (CK-2) CK-MB (CK-2) Rel Index Total Protein Albumin Urine WBC (Auto) Vancomycin Trough Salicylates Acetaminophen Plasma/Serum Alcohol Crossmatch 12/05/19 12/06/19 12/06/19 23:30 04:14 05:43 WBC RBC Hgb Hct MCH RDW Plt Count Lymph % (Auto) Sampson % (Auto) Sampson # Baso # Seg Neutrophils % Seg Neuts % (Manual) Lymphocytes % (Manual) Monocytes % (Manual) Seg Neutrophils # Seg Neutrophils # Man Lymphocytes # (Manual) Monocytes # (Manual) Eosinophils # (Manual) Basophils # (Manual) PT INR APTT ABG pH ABG pO2 ABG HCO3 ABG O2 Saturation ABG Base Excess ABG Hemoglobin Oxyhemoglobin Sodium Potassium 5.6 H Chloride 95.0 L Carbon Dioxide BUN 48 H Creatinine 1.3 H D Glucose POC Glucose 126 H 121 H Lactic Acid Calcium Ionized Calcium Phosphorus Magnesium Total Bilirubin AST 89 H ALT 98 H Alkaline Phosphatase 476 H Ammonia Total Creatine Kinase CK-MB (CK-2) CK-MB (CK-2) Rel Index Total Protein Albumin 2.8 L Urine WBC (Auto) Vancomycin Trough Salicylates Acetaminophen Plasma/Serum Alcohol Crossmatch 12/06/19 12/06/19 12/07/19 10:39 14:34 00:19 WBC 17.3 H RBC 2.60 L Hgb 7.1 L Hct 22.7 L MCH 27 L RDW 20.1 H Plt Count 832 H Lymph % (Auto) Sampson % (Auto) Sampson # Baso # Seg Neutrophils % Seg Neuts % (Manual) Lymphocytes % (Manual) Monocytes % (Manual) Seg Neutrophils # Seg Neutrophils # Man Lymphocytes # (Manual) Monocytes # (Manual) Eosinophils # (Manual) Basophils # (Manual) PT INR APTT ABG pH ABG pO2 ABG HCO3 ABG O2 Saturation ABG Base Excess ABG Hemoglobin Oxyhemoglobin Sodium Potassium Chloride Carbon Dioxide BUN Creatinine Glucose POC Glucose 128 H 136 H Lactic Acid Calcium Ionized Calcium Phosphorus Magnesium Total Bilirubin AST ALT Alkaline Phosphatase Ammonia Total Creatine Kinase CK-MB (CK-2) CK-MB (CK-2) Rel Index Total Protein Albumin Urine WBC (Auto) Vancomycin Trough Salicylates Acetaminophen Plasma/Serum Alcohol Crossmatch 12/07/19 12/07/19 12/07/19 03:44 03:44 05:53 WBC 16.2 H RBC 2.56 L Hgb 7.1 L Hct 22.3 L MCH RDW 19.4 H Plt Count 782 H Lymph % (Auto) Sampson % (Auto) Sampson # Baso # Seg Neutrophils % Seg Neuts % (Manual) Lymphocytes % (Manual) Monocytes % (Manual) Seg Neutrophils # Seg Neutrophils # Man Lymphocytes # (Manual) Monocytes # (Manual) Eosinophils # (Manual) Basophils # (Manual) PT INR APTT ABG pH ABG pO2 ABG HCO3 ABG O2 Saturation ABG Base Excess ABG Hemoglobin Oxyhemoglobin Sodium Potassium Chloride 95.6 L Carbon Dioxide BUN 56 H Creatinine 1.4 H Glucose 120 H POC Glucose 128 H Lactic Acid Calcium 10.3 H Ionized Calcium Phosphorus Magnesium Total Bilirubin AST ALT Alkaline Phosphatase Ammonia Total Creatine Kinase CK-MB (CK-2) CK-MB (CK-2) Rel Index Total Protein Albumin Urine WBC (Auto) Vancomycin Trough Salicylates Acetaminophen Plasma/Serum Alcohol Crossmatch 12/07/19 12/07/19 12/08/19 12:54 23:47 00:20 WBC RBC Hgb Hct MCH RDW Plt Count Lymph % (Auto) Sampson % (Auto) Sampson # Baso # Seg Neutrophils % Seg Neuts % (Manual) Lymphocytes % (Manual) Monocytes % (Manual) Seg Neutrophils # Seg Neutrophils # Man Lymphocytes # (Manual) Monocytes # (Manual) Eosinophils # (Manual) Basophils # (Manual) PT INR APTT ABG pH ABG pO2 ABG HCO3 ABG O2 Saturation ABG Base Excess ABG Hemoglobin Oxyhemoglobin Sodium Potassium Chloride Carbon Dioxide BUN Creatinine Glucose POC Glucose 128 H 130 H 124 H Lactic Acid Calcium Ionized Calcium Phosphorus Magnesium Total Bilirubin AST ALT Alkaline Phosphatase Ammonia Total Creatine Kinase CK-MB (CK-2) CK-MB (CK-2) Rel Index Total Protein Albumin Urine WBC (Auto) Vancomycin Trough Salicylates Acetaminophen Plasma/Serum Alcohol Crossmatch 12/08/19 12/08/19 12/08/19 06:38 12:04 18:26 WBC RBC Hgb Hct MCH RDW Plt Count Lymph % (Auto) Sampson % (Auto) Sampson # Baso # Seg Neutrophils % Seg Neuts % (Manual) Lymphocytes % (Manual) Monocytes % (Manual) Seg Neutrophils # Seg Neutrophils # Man Lymphocytes # (Manual) Monocytes # (Manual) Eosinophils # (Manual) Basophils # (Manual) PT INR APTT ABG pH ABG pO2 ABG HCO3 ABG O2 Saturation ABG Base Excess ABG Hemoglobin Oxyhemoglobin Sodium Potassium Chloride Carbon Dioxide BUN Creatinine Glucose POC Glucose 137 H 129 H 150 H Lactic Acid Calcium Ionized Calcium Phosphorus Magnesium Total Bilirubin AST ALT Alkaline Phosphatase Ammonia Total Creatine Kinase CK-MB (CK-2) CK-MB (CK-2) Rel Index Total Protein Albumin Urine WBC (Auto) Vancomycin Trough Salicylates Acetaminophen Plasma/Serum Alcohol Crossmatch 12/09/19 12/09/19 12/09/19 00:56 05:34 06:13 WBC RBC Hgb Hct MCH RDW Plt Count Lymph % (Auto) Sampson % (Auto) Sampson # Baso # Seg Neutrophils % Seg Neuts % (Manual) Lymphocytes % (Manual) Monocytes % (Manual) Seg Neutrophils # Seg Neutrophils # Man Lymphocytes # (Manual) Monocytes # (Manual) Eosinophils # (Manual) Basophils # (Manual) PT INR APTT ABG pH ABG pO2 ABG HCO3 ABG O2 Saturation ABG Base Excess ABG Hemoglobin Oxyhemoglobin Sodium 146 H Potassium Chloride Carbon Dioxide BUN 66 H Creatinine 1.9 H Glucose 116 H POC Glucose 130 H 130 H Lactic Acid Calcium Ionized Calcium Phosphorus Magnesium Total Bilirubin AST ALT Alkaline Phosphatase Ammonia Total Creatine Kinase CK-MB (CK-2) CK-MB (CK-2) Rel Index Total Protein Albumin Urine WBC (Auto) Vancomycin Trough Salicylates Acetaminophen Plasma/Serum Alcohol Crossmatch 12/09/19 12/09/19 12/10/19 11:52 17:50 00:14 WBC RBC Hgb Hct MCH RDW Plt Count Lymph % (Auto) Sampson % (Auto) Sampson # Baso # Seg Neutrophils % Seg Neuts % (Manual) Lymphocytes % (Manual) Monocytes % (Manual) Seg Neutrophils # Seg Neutrophils # Man Lymphocytes # (Manual) Monocytes # (Manual) Eosinophils # (Manual) Basophils # (Manual) PT INR APTT ABG pH ABG pO2 ABG HCO3 ABG O2 Saturation ABG Base Excess ABG Hemoglobin Oxyhemoglobin Sodium Potassium Chloride Carbon Dioxide BUN Creatinine Glucose POC Glucose 135 H 120 H 116 H Lactic Acid Calcium Ionized Calcium Phosphorus Magnesium Total Bilirubin AST ALT Alkaline Phosphatase Ammonia Total Creatine Kinase CK-MB (CK-2) CK-MB (CK-2) Rel Index Total Protein Albumin Urine WBC (Auto) Vancomycin Trough Salicylates Acetaminophen Plasma/Serum Alcohol Crossmatch 12/10/19 12/10/19 12/10/19 05:38 11:38 17:34 WBC RBC Hgb Hct MCH RDW Plt Count Lymph % (Auto) Sampson % (Auto) Sampson # Baso # Seg Neutrophils % Seg Neuts % (Manual) Lymphocytes % (Manual) Monocytes % (Manual) Seg Neutrophils # Seg Neutrophils # Man Lymphocytes # (Manual) Monocytes # (Manual) Eosinophils # (Manual) Basophils # (Manual) PT INR APTT ABG pH ABG pO2 ABG HCO3 ABG O2 Saturation ABG Base Excess ABG Hemoglobin Oxyhemoglobin Sodium Potassium Chloride Carbon Dioxide BUN Creatinine Glucose POC Glucose 115 H 112 H 130 H Lactic Acid Calcium Ionized Calcium Phosphorus Magnesium Total Bilirubin AST ALT Alkaline Phosphatase Ammonia Total Creatine Kinase CK-MB (CK-2) CK-MB (CK-2) Rel Index Total Protein Albumin Urine WBC (Auto) Vancomycin Trough Salicylates Acetaminophen Plasma/Serum Alcohol Crossmatch 12/11/19 12/11/19 12/11/19 00:20 05:31 12:22 WBC RBC Hgb Hct MCH RDW Plt Count Lymph % (Auto) Sampson % (Auto) Sampson # Baso # Seg Neutrophils % Seg Neuts % (Manual) Lymphocytes % (Manual) Monocytes % (Manual) Seg Neutrophils # Seg Neutrophils # Man Lymphocytes # (Manual) Monocytes # (Manual) Eosinophils # (Manual) Basophils # (Manual) PT INR APTT ABG pH ABG pO2 ABG HCO3 ABG O2 Saturation ABG Base Excess ABG Hemoglobin Oxyhemoglobin Sodium Potassium Chloride Carbon Dioxide BUN Creatinine Glucose POC Glucose 124 H 132 H 128 H Lactic Acid Calcium Ionized Calcium Phosphorus Magnesium Total Bilirubin AST ALT Alkaline Phosphatase Ammonia Total Creatine Kinase CK-MB (CK-2) CK-MB (CK-2) Rel Index Total Protein Albumin Urine WBC (Auto) Vancomycin Trough Salicylates Acetaminophen Plasma/Serum Alcohol Crossmatch 12/11/19 12/11/19 12/12/19 18:04 23:42 03:51 WBC RBC Hgb Hct MCH RDW Plt Count Lymph % (Auto) Sampson % (Auto) Sampson # Baso # Seg Neutrophils % Seg Neuts % (Manual) Lymphocytes % (Manual) Monocytes % (Manual) Seg Neutrophils # Seg Neutrophils # Man Lymphocytes # (Manual) Monocytes # (Manual) Eosinophils # (Manual) Basophils # (Manual) PT INR APTT ABG pH ABG pO2 ABG HCO3 ABG O2 Saturation ABG Base Excess ABG Hemoglobin Oxyhemoglobin Sodium 149 H Potassium Chloride Carbon Dioxide 20 L D BUN 77 H Creatinine 2.8 H Glucose POC Glucose 133 H 154 H Lactic Acid Calcium Ionized Calcium Phosphorus Magnesium Total Bilirubin AST ALT Alkaline Phosphatase Ammonia Total Creatine Kinase CK-MB (CK-2) CK-MB (CK-2) Rel Index Total Protein Albumin Urine WBC (Auto) Vancomycin Trough Salicylates Acetaminophen Plasma/Serum Alcohol Crossmatch 12/12/19 12/12/19 12/12/19 05:18 05:26 10:30 WBC 18.0 H RBC 2.51 L Hgb 6.8 L Hct 22.0 L MCH 27 L RDW 19.9 H Plt Count 582 H Lymph % (Auto) Sampson % (Auto) Sampson # Baso # Seg Neutrophils % Seg Neuts % (Manual) Lymphocytes % (Manual) Monocytes % (Manual) Seg Neutrophils # Seg Neutrophils # Man Lymphocytes # (Manual) Monocytes # (Manual) Eosinophils # (Manual) Basophils # (Manual) PT INR APTT ABG pH ABG pO2 ABG HCO3 ABG O2 Saturation ABG Base Excess ABG Hemoglobin Oxyhemoglobin Sodium Potassium Chloride Carbon Dioxide BUN Creatinine Glucose POC Glucose 135 H Lactic Acid Calcium Ionized Calcium Phosphorus Magnesium Total Bilirubin AST ALT Alkaline Phosphatase Ammonia Total Creatine Kinase CK-MB (CK-2) CK-MB (CK-2) Rel Index Total Protein Albumin Urine WBC (Auto) Vancomycin Trough Salicylates Acetaminophen Plasma/Serum Alcohol Crossmatch See Detail 12/12/19 12/12/19 12/12/19 11:44 18:10 23:21 WBC RBC Hgb Hct MCH RDW Plt Count Lymph % (Auto) Sampson % (Auto) Sampson # Baso # Seg Neutrophils % Seg Neuts % (Manual) Lymphocytes % (Manual) Monocytes % (Manual) Seg Neutrophils # Seg Neutrophils # Man Lymphocytes # (Manual) Monocytes # (Manual) Eosinophils # (Manual) Basophils # (Manual) PT INR APTT ABG pH ABG pO2 ABG HCO3 ABG O2 Saturation ABG Base Excess ABG Hemoglobin Oxyhemoglobin Sodium Potassium Chloride Carbon Dioxide BUN Creatinine Glucose POC Glucose 108 H 107 H 126 H Lactic Acid Calcium Ionized Calcium Phosphorus Magnesium Total Bilirubin AST ALT Alkaline Phosphatase Ammonia Total Creatine Kinase CK-MB (CK-2) CK-MB (CK-2) Rel Index Total Protein Albumin Urine WBC (Auto) Vancomycin Trough Salicylates Acetaminophen Plasma/Serum Alcohol Crossmatch 12/13/19 12/13/19 12/13/19 05:41 07:48 07:48 WBC 38.3 H RBC 2.37 L Hgb 6.3 L Hct 20.9 L MCH 27 L RDW 20.2 H Plt Count 546 H Lymph % (Auto) Sampson % (Auto) Sampson # Baso # Seg Neutrophils % Seg Neuts % (Manual) 93.0 H Lymphocytes % (Manual) 1.0 L Monocytes % (Manual) Seg Neutrophils # Seg Neutrophils # Man 35.6 H Lymphocytes # (Manual) 0.4 L Monocytes # (Manual) Eosinophils # (Manual) Basophils # (Manual) 0.4 H PT INR APTT ABG pH ABG pO2 ABG HCO3 ABG O2 Saturation ABG Base Excess ABG Hemoglobin Oxyhemoglobin Sodium 152 H Potassium 3.1 L D Chloride 111.9 H Carbon Dioxide 21 L BUN 53 H Creatinine 1.9 H Glucose 141 H POC Glucose 128 H Lactic Acid Calcium Ionized Calcium Phosphorus Magnesium Total Bilirubin AST ALT Alkaline Phosphatase 316 H Ammonia Total Creatine Kinase CK-MB (CK-2) CK-MB (CK-2) Rel Index Total Protein Albumin 2.4 L Urine WBC (Auto) Vancomycin Trough Salicylates Acetaminophen Plasma/Serum Alcohol Crossmatch 03/12/13/19 12/14/19 18:17 23:19 05:36 WBC RBC Hgb Hct MCH RDW Plt Count Lymph % (Auto) Sampson % (Auto) Sampson # Baso # Seg Neutrophils % Seg Neuts % (Manual) Lymphocytes % (Manual) Monocytes % (Manual) Seg Neutrophils # Seg Neutrophils # Man Lymphocytes # (Manual) Monocytes # (Manual) Eosinophils # (Manual) Basophils # (Manual) PT INR APTT ABG pH ABG pO2 ABG HCO3 ABG O2 Saturation ABG Base Excess ABG Hemoglobin Oxyhemoglobin Sodium Potassium Chloride Carbon Dioxide BUN Creatinine Glucose POC Glucose 141 H 158 H 182 H Lactic Acid Calcium Ionized Calcium Phosphorus Magnesium Total Bilirubin AST ALT Alkaline Phosphatase Ammonia Total Creatine Kinase CK-MB (CK-2) CK-MB (CK-2) Rel Index Total Protein Albumin Urine WBC (Auto) Vancomycin Trough Salicylates Acetaminophen Plasma/Serum Alcohol Crossmatch 12/14/19 12/14/19 12/14/19 08:48 08:48 10:31 WBC 33.3 H RBC 2.70 L Hgb 7.9 L 8.0 L Hct 25.3 L 24.0 L MCH RDW 19.2 H Plt Count 476 H Lymph % (Auto) Sampson % (Auto) Sampson # Baso # Seg Neutrophils % Seg Neuts % (Manual) Lymphocytes % (Manual) Monocytes % (Manual) Seg Neutrophils # Seg Neutrophils # Man Lymphocytes # (Manual) Monocytes # (Manual) Eosinophils # (Manual) Basophils # (Manual) PT INR APTT ABG pH ABG pO2 ABG HCO3 ABG O2 Saturation ABG Base Excess ABG Hemoglobin Oxyhemoglobin Sodium 153 H Potassium 2.5 L* Chloride 114.9 H Carbon Dioxide 20 L BUN 38 H Creatinine 1.4 H Glucose 177 H POC Glucose Lactic Acid Calcium Ionized Calcium Phosphorus Magnesium Total Bilirubin AST ALT Alkaline Phosphatase Ammonia Total Creatine Kinase CK-MB (CK-2) CK-MB (CK-2) Rel Index Total Protein Albumin Urine WBC (Auto) Vancomycin Trough Salicylates Acetaminophen Plasma/Serum Alcohol Crossmatch 12/14/19 12/14/19 12/14/19 12:57 16:15 17:50 WBC RBC Hgb Hct MCH RDW Plt Count Lymph % (Auto) Sampson % (Auto) Sampson # Baso # Seg Neutrophils % Seg Neuts % (Manual) Lymphocytes % (Manual) Monocytes % (Manual) Seg Neutrophils # Seg Neutrophils # Man Lymphocytes # (Manual) Monocytes # (Manual) Eosinophils # (Manual) Basophils # (Manual) PT INR APTT ABG pH ABG pO2 73.6 L ABG HCO3 ABG O2 Saturation ABG Base Excess ABG Hemoglobin 7.6 L Oxyhemoglobin 94.0 L Sodium Potassium Chloride Carbon Dioxide BUN Creatinine Glucose POC Glucose 174 H 150 H Lactic Acid Calcium Ionized Calcium Phosphorus Magnesium Total Bilirubin AST ALT Alkaline Phosphatase Ammonia Total Creatine Kinase CK-MB (CK-2) CK-MB (CK-2) Rel Index Total Protein Albumin Urine WBC (Auto) Vancomycin Trough Salicylates Acetaminophen Plasma/Serum Alcohol Crossmatch 12/15/19 12/15/19 12/15/19 00:28 05:27 07:23 WBC 30.0 H RBC 3.11 L Hgb 8.6 L Hct 27.7 L MCH RDW 20.0 H Plt Count 473 H Lymph % (Auto) Sampson % (Auto) Sampson # Baso # Seg Neutrophils % Seg Neuts % (Manual) Lymphocytes % (Manual) Monocytes % (Manual) Seg Neutrophils # Seg Neutrophils # Man Lymphocytes # (Manual) Monocytes # (Manual) Eosinophils # (Manual) Basophils # (Manual) PT INR APTT ABG pH ABG pO2 ABG HCO3 ABG O2 Saturation ABG Base Excess ABG Hemoglobin Oxyhemoglobin Sodium Potassium Chloride Carbon Dioxide BUN Creatinine Glucose POC Glucose 167 H 148 H Lactic Acid Calcium Ionized Calcium Phosphorus Magnesium Total Bilirubin AST ALT Alkaline Phosphatase Ammonia Total Creatine Kinase CK-MB (CK-2) CK-MB (CK-2) Rel Index Total Protein Albumin Urine WBC (Auto) Vancomycin Trough Salicylates Acetaminophen Plasma/Serum Alcohol Crossmatch 12/15/19 12/15/19 12/15/19 07:23 12:21 17:41 WBC RBC Hgb Hct MCH RDW Plt Count Lymph % (Auto) Sampson % (Auto) Sampson # Baso # Seg Neutrophils % Seg Neuts % (Manual) Lymphocytes % (Manual) Monocytes % (Manual) Seg Neutrophils # Seg Neutrophils # Man Lymphocytes # (Manual) Monocytes # (Manual) Eosinophils # (Manual) Basophils # (Manual) PT INR APTT ABG pH ABG pO2 ABG HCO3 ABG O2 Saturation ABG Base Excess ABG Hemoglobin Oxyhemoglobin Sodium 147 H Potassium 3.5 L D Chloride 111.2 H Carbon Dioxide 19 L BUN 29 H Creatinine Glucose 126 H POC Glucose 154 H 144 H Lactic Acid Calcium Ionized Calcium Phosphorus Magnesium Total Bilirubin AST ALT Alkaline Phosphatase Ammonia Total Creatine Kinase CK-MB (CK-2) CK-MB (CK-2) Rel Index Total Protein Albumin Urine WBC (Auto) Vancomycin Trough Salicylates Acetaminophen Plasma/Serum Alcohol Crossmatch 12/16/19 12/16/19 12/16/19 00:22 05:30 05:44 WBC 30.8 H RBC 2.58 L Hgb 7.1 L Hct 22.7 L MCH RDW 19.6 H Plt Count 451 H Lymph % (Auto) Sampson % (Auto) Sampson # Baso # Seg Neutrophils % Seg Neuts % (Manual) Lymphocytes % (Manual) Monocytes % (Manual) Seg Neutrophils # Seg Neutrophils # Man Lymphocytes # (Manual) Monocytes # (Manual) Eosinophils # (Manual) Basophils # (Manual) PT INR APTT ABG pH ABG pO2 ABG HCO3 ABG O2 Saturation ABG Base Excess ABG Hemoglobin Oxyhemoglobin Sodium Potassium Chloride Carbon Dioxide BUN Creatinine Glucose POC Glucose 139 H 126 H Lactic Acid Calcium Ionized Calcium Phosphorus Magnesium Total Bilirubin AST ALT Alkaline Phosphatase Ammonia Total Creatine Kinase CK-MB (CK-2) CK-MB (CK-2) Rel Index Total Protein Albumin Urine WBC (Auto) Vancomycin Trough Salicylates Acetaminophen Plasma/Serum Alcohol Crossmatch 12/16/19 12/16/19 12/16/19 05:44 11:48 17:37 WBC RBC Hgb Hct MCH RDW Plt Count Lymph % (Auto) Sampson % (Auto) Sampson # Baso # Seg Neutrophils % Seg Neuts % (Manual) Lymphocytes % (Manual) Monocytes % (Manual) Seg Neutrophils # Seg Neutrophils # Man Lymphocytes # (Manual) Monocytes # (Manual) Eosinophils # (Manual) Basophils # (Manual) PT INR APTT ABG pH ABG pO2 ABG HCO3 ABG O2 Saturation ABG Base Excess ABG Hemoglobin Oxyhemoglobin Sodium Potassium 3.4 L Chloride 109.2 H Carbon Dioxide 19 L BUN 27 H Creatinine Glucose 124 H POC Glucose 125 H 148 H Lactic Acid Calcium Ionized Calcium Phosphorus Magnesium Total Bilirubin AST ALT Alkaline Phosphatase Ammonia Total Creatine Kinase CK-MB (CK-2) CK-MB (CK-2) Rel Index Total Protein Albumin Urine WBC (Auto) Vancomycin Trough Salicylates Acetaminophen Plasma/Serum Alcohol Crossmatch 03/29/20 03/30/20 03/30/20 23:43 05:28 12:47 WBC RBC Hgb Hct MCH RDW Plt Count Lymph % (Auto) Sampson % (Auto) Sampson # Baso # Seg Neutrophils % Seg Neuts % (Manual) Lymphocytes % (Manual) Monocytes % (Manual) Seg Neutrophils # Seg Neutrophils # Man Lymphocytes # (Manual) Monocytes # (Manual) Eosinophils # (Manual) Basophils # (Manual) PT INR APTT ABG pH ABG pO2 ABG HCO3 ABG O2 Saturation ABG Base Excess ABG Hemoglobin Oxyhemoglobin Sodium Potassium Chloride Carbon Dioxide BUN Creatinine Glucose POC Glucose 142 H 140 H 125 H Lactic Acid Calcium Ionized Calcium Phosphorus Magnesium Total Bilirubin AST ALT Alkaline Phosphatase Ammonia Total Creatine Kinase CK-MB (CK-2) CK-MB (CK-2) Rel Index Total Protein Albumin Urine WBC (Auto) Vancomycin Trough Salicylates Acetaminophen Plasma/Serum Alcohol Crossmatch 12/17/19 12/17/19 12/17/19 17:05 18:00 Unknown WBC RBC Hgb Hct MCH RDW Plt Count Lymph % (Auto) Sampson % (Auto) Sampson # Baso # Seg Neutrophils % Seg Neuts % (Manual) Lymphocytes % (Manual) Monocytes % (Manual) Seg Neutrophils # Seg Neutrophils # Man Lymphocytes # (Manual) Monocytes # (Manual) Eosinophils # (Manual) Basophils # (Manual) PT INR APTT ABG pH ABG pO2 68.1 L ABG HCO3 ABG O2 Saturation 93.7 L ABG Base Excess ABG Hemoglobin 5.0 L Oxyhemoglobin 91.7 L Sodium Potassium Chloride Carbon Dioxide BUN Creatinine Glucose POC Glucose 140 H Lactic Acid Calcium Ionized Calcium Phosphorus Magnesium Total Bilirubin AST ALT Alkaline Phosphatase Ammonia Total Creatine Kinase CK-MB (CK-2) CK-MB (CK-2) Rel Index Total Protein Albumin Urine WBC (Auto) Vancomycin Trough Salicylates Acetaminophen Plasma/Serum Alcohol Crossmatch 12/18/19 12/18/19 12/18/19 00:16 04:53 04:53 WBC 28.6 H RBC 2.27 L Hgb 6.3 L Hct 19.5 L* MCH RDW 20.0 H Plt Count 497 H Lymph % (Auto) Sampson % (Auto) Sampson # Baso # Seg Neutrophils % Seg Neuts % (Manual) Lymphocytes % (Manual) Monocytes % (Manual) Seg Neutrophils # Seg Neutrophils # Man Lymphocytes # (Manual) Monocytes # (Manual) Eosinophils # (Manual) Basophils # (Manual) PT INR APTT ABG pH ABG pO2 ABG HCO3 ABG O2 Saturation ABG Base Excess ABG Hemoglobin Oxyhemoglobin Sodium Potassium Chloride 107.9 H Carbon Dioxide 20 L BUN 27 H Creatinine 0.6 L Glucose 116 H POC Glucose 123 H Lactic Acid Calcium Ionized Calcium Phosphorus Magnesium Total Bilirubin AST ALT Alkaline Phosphatase Ammonia Total Creatine Kinase CK-MB (CK-2) CK-MB (CK-2) Rel Index Total Protein Albumin Urine WBC (Auto) Vancomycin Trough Salicylates Acetaminophen Plasma/Serum Alcohol Crossmatch 12/18/19 12/18/19 12/18/19 06:38 11:22 12:08 WBC RBC Hgb Hct MCH RDW Plt Count Lymph % (Auto) Sampson % (Auto) Sampson # Baso # Seg Neutrophils % Seg Neuts % (Manual) Lymphocytes % (Manual) Monocytes % (Manual) Seg Neutrophils # Seg Neutrophils # Man Lymphocytes # (Manual) Monocytes # (Manual) Eosinophils # (Manual) Basophils # (Manual) PT INR APTT ABG pH ABG pO2 ABG HCO3 ABG O2 Saturation ABG Base Excess ABG Hemoglobin Oxyhemoglobin Sodium Potassium Chloride Carbon Dioxide BUN Creatinine Glucose POC Glucose 120 H 127 H Lactic Acid Calcium Ionized Calcium Phosphorus Magnesium Total Bilirubin AST ALT Alkaline Phosphatase Ammonia Total Creatine Kinase CK-MB (CK-2) CK-MB (CK-2) Rel Index Total Protein Albumin Urine WBC (Auto) Vancomycin Trough Salicylates Acetaminophen Plasma/Serum Alcohol Crossmatch See Detail 12/18/19 12/18/19 12/18/19 14:05 17:49 23:53 WBC RBC Hgb Hct MCH RDW Plt Count Lymph % (Auto) Sampson % (Auto) Sampson # Baso # Seg Neutrophils % Seg Neuts % (Manual) Lymphocytes % (Manual) Monocytes % (Manual) Seg Neutrophils # Seg Neutrophils # Man Lymphocytes # (Manual) Monocytes # (Manual) Eosinophils # (Manual) Basophils # (Manual) PT INR APTT ABG pH 7.267 L ABG pO2 69.8 L ABG HCO3 ABG O2 Saturation 88.4 L ABG Base Excess ABG Hemoglobin 7.1 L Oxyhemoglobin 86.4 L Sodium Potassium Chloride Carbon Dioxide BUN Creatinine Glucose POC Glucose 157 H 128 H Lactic Acid Calcium Ionized Calcium Phosphorus Magnesium Total Bilirubin AST ALT Alkaline Phosphatase Ammonia Total Creatine Kinase CK-MB (CK-2) CK-MB (CK-2) Rel Index Total Protein Albumin Urine WBC (Auto) Vancomycin Trough Salicylates Acetaminophen Plasma/Serum Alcohol Crossmatch 12/19/19 12/19/19 12/19/19 03:37 03:37 05:25 WBC 31.3 H RBC 2.60 L Hgb 7.6 L Hct 23.0 L MCH RDW 19.4 H Plt Count 530 H Lymph % (Auto) Sampson % (Auto) Sampson # Baso # Seg Neutrophils % Seg Neuts % (Manual) Lymphocytes % (Manual) Monocytes % (Manual) Seg Neutrophils # Seg Neutrophils # Man Lymphocytes # (Manual) Monocytes # (Manual) Eosinophils # (Manual) Basophils # (Manual) PT INR APTT ABG pH ABG pO2 ABG HCO3 ABG O2 Saturation ABG Base Excess ABG Hemoglobin Oxyhemoglobin Sodium Potassium Chloride Carbon Dioxide 18 L BUN 36 H Creatinine Glucose 111 H POC Glucose 123 H Lactic Acid Calcium Ionized Calcium Phosphorus Magnesium Total Bilirubin AST ALT Alkaline Phosphatase Ammonia Total Creatine Kinase CK-MB (CK-2) CK-MB (CK-2) Rel Index Total Protein Albumin Urine WBC (Auto) Vancomycin Trough Salicylates Acetaminophen Plasma/Serum Alcohol Crossmatch 12/19/19 12/19/19 12/20/19 12:59 18:33 00:00 WBC RBC Hgb Hct MCH RDW Plt Count Lymph % (Auto) Sampson % (Auto) Sampson # Baso # Seg Neutrophils % Seg Neuts % (Manual) Lymphocytes % (Manual) Monocytes % (Manual) Seg Neutrophils # Seg Neutrophils # Man Lymphocytes # (Manual) Monocytes # (Manual) Eosinophils # (Manual) Basophils # (Manual) PT INR APTT ABG pH ABG pO2 ABG HCO3 ABG O2 Saturation ABG Base Excess ABG Hemoglobin Oxyhemoglobin Sodium Potassium Chloride Carbon Dioxide BUN Creatinine Glucose POC Glucose 130 H 118 H 135 H Lactic Acid Calcium Ionized Calcium Phosphorus Magnesium Total Bilirubin AST ALT Alkaline Phosphatase Ammonia Total Creatine Kinase CK-MB (CK-2) CK-MB (CK-2) Rel Index Total Protein Albumin Urine WBC (Auto) Vancomycin Trough Salicylates Acetaminophen Plasma/Serum Alcohol Crossmatch 12/20/19 12/20/19 12/20/19 05:46 12:31 18:07 WBC RBC Hgb Hct MCH RDW Plt Count Lymph % (Auto) Sampson % (Auto) Sampson # Baso # Seg Neutrophils % Seg Neuts % (Manual) Lymphocytes % (Manual) Monocytes % (Manual) Seg Neutrophils # Seg Neutrophils # Man Lymphocytes # (Manual) Monocytes # (Manual) Eosinophils # (Manual) Basophils # (Manual) PT INR APTT ABG pH ABG pO2 ABG HCO3 ABG O2 Saturation ABG Base Excess ABG Hemoglobin Oxyhemoglobin Sodium Potassium Chloride Carbon Dioxide BUN Creatinine Glucose POC Glucose 131 H 128 H 134 H Lactic Acid Calcium Ionized Calcium Phosphorus Magnesium Total Bilirubin AST ALT Alkaline Phosphatase Ammonia Total Creatine Kinase CK-MB (CK-2) CK-MB (CK-2) Rel Index Total Protein Albumin Urine WBC (Auto) Vancomycin Trough Salicylates Acetaminophen Plasma/Serum Alcohol Crossmatch 12/21/19 12/21/19 12/21/19 03:28 03:28 07:21 WBC 29.4 H RBC 2.30 L Hgb 6.8 L Hct 20.2 L MCH RDW 20.2 H Plt Count 746 H Lymph % (Auto) Sampson % (Auto) Sampson # Baso # Seg Neutrophils % Seg Neuts % (Manual) 85.0 H Lymphocytes % (Manual) 8.0 L Monocytes % (Manual) Seg Neutrophils # Seg Neutrophils # Man 25.0 H Lymphocytes # (Manual) Monocytes # (Manual) 1.5 H Eosinophils # (Manual) 0.6 H Basophils # (Manual) PT INR APTT ABG pH ABG pO2 ABG HCO3 ABG O2 Saturation ABG Base Excess ABG Hemoglobin Oxyhemoglobin Sodium Potassium Chloride Carbon Dioxide 17 L BUN 57 H Creatinine 1.4 H D Glucose POC Glucose 124 H Lactic Acid Calcium Ionized Calcium Phosphorus Magnesium Total Bilirubin AST ALT Alkaline Phosphatase Ammonia Total Creatine Kinase CK-MB (CK-2) CK-MB (CK-2) Rel Index Total Protein Albumin Urine WBC (Auto) Vancomycin Trough Salicylates Acetaminophen Plasma/Serum Alcohol Crossmatch 12/21/19 12/21/19 12/21/19 08:56 12:06 14:53 WBC RBC Hgb 7.2 L Hct 22.9 L MCH RDW Plt Count Lymph % (Auto) Sampson % (Auto) Sampson # Baso # Seg Neutrophils % Seg Neuts % (Manual) Lymphocytes % (Manual) Monocytes % (Manual) Seg Neutrophils # Seg Neutrophils # Man Lymphocytes # (Manual) Monocytes # (Manual) Eosinophils # (Manual) Basophils # (Manual) PT INR APTT ABG pH ABG pO2 ABG HCO3 ABG O2 Saturation ABG Base Excess ABG Hemoglobin Oxyhemoglobin Sodium Potassium Chloride Carbon Dioxide BUN Creatinine Glucose POC Glucose 116 H Lactic Acid Calcium Ionized Calcium Phosphorus Magnesium Total Bilirubin AST ALT Alkaline Phosphatase Ammonia Total Creatine Kinase CK-MB (CK-2) CK-MB (CK-2) Rel Index Total Protein Albumin Urine WBC (Auto) Vancomycin Trough 33.8 H Salicylates Acetaminophen Plasma/Serum Alcohol Crossmatch 12/21/19 12/21/19 12/21/19 14:54 17:27 23:49 WBC RBC Hgb Hct MCH RDW Plt Count Lymph % (Auto) Sampson % (Auto) Sampson # Baso # Seg Neutrophils % Seg Neuts % (Manual) Lymphocytes % (Manual) Monocytes % (Manual) Seg Neutrophils # Seg Neutrophils # Man Lymphocytes # (Manual) Monocytes # (Manual) Eosinophils # (Manual) Basophils # (Manual) PT INR APTT ABG pH ABG pO2 ABG HCO3 ABG O2 Saturation ABG Base Excess ABG Hemoglobin Oxyhemoglobin Sodium Potassium Chloride Carbon Dioxide BUN Creatinine Glucose POC Glucose 145 H 127 H Lactic Acid Calcium Ionized Calcium Phosphorus Magnesium Total Bilirubin AST ALT Alkaline Phosphatase Ammonia Total Creatine Kinase CK-MB (CK-2) CK-MB (CK-2) Rel Index Total Protein Albumin Urine WBC (Auto) Vancomycin Trough Salicylates Acetaminophen Plasma/Serum Alcohol Crossmatch See Detail 12/22/19 12/22/19 12/22/19 04:43 05:56 08:40 WBC RBC Hgb Hct MCH RDW Plt Count Lymph % (Auto) Sampson % (Auto) Sampson # Baso # Seg Neutrophils % Seg Neuts % (Manual) Lymphocytes % (Manual) Monocytes % (Manual) Seg Neutrophils # Seg Neutrophils # Man Lymphocytes # (Manual) Monocytes # (Manual) Eosinophils # (Manual) Basophils # (Manual) PT INR APTT ABG pH ABG pO2 75.6 L ABG HCO3 ABG O2 Saturation ABG Base Excess -2.6 L ABG Hemoglobin 6.8 L Oxyhemoglobin 94.6 L Sodium Potassium Chloride Carbon Dioxide 17 L BUN 60 H Creatinine 1.4 H Glucose 126 H POC Glucose 153 H Lactic Acid Calcium Ionized Calcium Phosphorus Magnesium Total Bilirubin AST ALT Alkaline Phosphatase Ammonia Total Creatine Kinase CK-MB (CK-2) CK-MB (CK-2) Rel Index Total Protein Albumin Urine WBC (Auto) Vancomycin Trough Salicylates Acetaminophen Plasma/Serum Alcohol Crossmatch 12/22/19 12/22/19 12/23/19 12:07 17:49 04:30 WBC 22.4 H RBC 2.68 L Hgb 7.6 L Hct 22.9 L MCH RDW 19.9 H Plt Count 998 H Lymph % (Auto) Sampson % (Auto) Sampson # Baso # Seg Neutrophils % Seg Neuts % (Manual) 88.0 H Lymphocytes % (Manual) 2.0 L Monocytes % (Manual) 9.0 H Seg Neutrophils # Seg Neutrophils # Man 19.7 H Lymphocytes # (Manual) 0.4 L Monocytes # (Manual) 2.0 H Eosinophils # (Manual) Basophils # (Manual) PT INR APTT ABG pH ABG pO2 ABG HCO3 ABG O2 Saturation ABG Base Excess ABG Hemoglobin Oxyhemoglobin Sodium Potassium Chloride Carbon Dioxide BUN Creatinine Glucose POC Glucose 140 H 116 H Lactic Acid Calcium Ionized Calcium Phosphorus Magnesium Total Bilirubin AST ALT Alkaline Phosphatase Ammonia Total Creatine Kinase CK-MB (CK-2) CK-MB (CK-2) Rel Index Total Protein Albumin Urine WBC (Auto) Vancomycin Trough Salicylates Acetaminophen Plasma/Serum Alcohol Crossmatch 12/23/19 12/23/19 12/23/19 04:30 12:00 18:06 WBC RBC Hgb Hct MCH RDW Plt Count Lymph % (Auto) Sampson % (Auto) Sampson # Baso # Seg Neutrophils % Seg Neuts % (Manual) Lymphocytes % (Manual) Monocytes % (Manual) Seg Neutrophils # Seg Neutrophils # Man Lymphocytes # (Manual) Monocytes # (Manual) Eosinophils # (Manual) Basophils # (Manual) PT INR APTT ABG pH ABG pO2 ABG HCO3 ABG O2 Saturation ABG Base Excess ABG Hemoglobin Oxyhemoglobin Sodium Potassium 5.2 H Chloride Carbon Dioxide 21 L BUN 69 H Creatinine 1.5 H Glucose 117 H POC Glucose 128 H 138 H Lactic Acid Calcium Ionized Calcium Phosphorus Magnesium Total Bilirubin AST ALT Alkaline Phosphatase Ammonia Total Creatine Kinase CK-MB (CK-2) CK-MB (CK-2) Rel Index Total Protein Albumin Urine WBC (Auto) Vancomycin Trough Salicylates Acetaminophen Plasma/Serum Alcohol Crossmatch 12/23/19 12/24/19 12/24/19 23:46 04:31 05:08 WBC RBC Hgb Hct MCH RDW Plt Count Lymph % (Auto) Sampson % (Auto) Sampson # Baso # Seg Neutrophils % Seg Neuts % (Manual) Lymphocytes % (Manual) Monocytes % (Manual) Seg Neutrophils # Seg Neutrophils # Man Lymphocytes # (Manual) Monocytes # (Manual) Eosinophils # (Manual) Basophils # (Manual) PT INR APTT ABG pH ABG pO2 ABG HCO3 ABG O2 Saturation ABG Base Excess ABG Hemoglobin Oxyhemoglobin Sodium Potassium 5.3 H Chloride 107.6 H Carbon Dioxide 20 L BUN 72 H Creatinine 1.6 H Glucose 120 H POC Glucose 120 H 140 H Lactic Acid Calcium Ionized Calcium Phosphorus Magnesium Total Bilirubin AST ALT Alkaline Phosphatase Ammonia Total Creatine Kinase CK-MB (CK-2) CK-MB (CK-2) Rel Index Total Protein Albumin Urine WBC (Auto) Vancomycin Trough Salicylates Acetaminophen Plasma/Serum Alcohol Crossmatch 12/24/19 12/24/19 12/25/19 11:58 17:49 03:47 WBC 36.2 H RBC 2.92 L Hgb 8.4 L Hct 26.1 L MCH RDW 20.2 H Plt Count 942 H Lymph % (Auto) Sampson % (Auto) Sampson # Baso # Seg Neutrophils % Seg Neuts % (Manual) 97.5 H Lymphocytes % (Manual) 1.0 L Monocytes % (Manual) Seg Neutrophils # Seg Neutrophils # Man 35.3 H Lymphocytes # (Manual) 0.4 L Monocytes # (Manual) Eosinophils # (Manual) Basophils # (Manual) PT INR APTT ABG pH ABG pO2 ABG HCO3 ABG O2 Saturation ABG Base Excess ABG Hemoglobin Oxyhemoglobin Sodium Potassium Chloride Carbon Dioxide BUN Creatinine Glucose POC Glucose 146 H 131 H Lactic Acid Calcium Ionized Calcium Phosphorus Magnesium Total Bilirubin AST ALT Alkaline Phosphatase Ammonia Total Creatine Kinase CK-MB (CK-2) CK-MB (CK-2) Rel Index Total Protein Albumin Urine WBC (Auto) Vancomycin Trough Salicylates Acetaminophen Plasma/Serum Alcohol Crossmatch 12/25/19 12/25/19 12/25/19 03:47 05:30 12:23 WBC RBC Hgb Hct MCH RDW Plt Count Lymph % (Auto) Sampson % (Auto) Sampson # Baso # Seg Neutrophils % Seg Neuts % (Manual) Lymphocytes % (Manual) Monocytes % (Manual) Seg Neutrophils # Seg Neutrophils # Man Lymphocytes # (Manual) Monocytes # (Manual) Eosinophils # (Manual) Basophils # (Manual) PT INR APTT ABG pH ABG pO2 ABG HCO3 ABG O2 Saturation ABG Base Excess ABG Hemoglobin Oxyhemoglobin Sodium Potassium Chloride Carbon Dioxide 15 L BUN 70 H Creatinine 1.7 H Glucose 153 H POC Glucose 169 H 135 H Lactic Acid Calcium Ionized Calcium Phosphorus Magnesium Total Bilirubin AST ALT Alkaline Phosphatase Ammonia Total Creatine Kinase CK-MB (CK-2) CK-MB (CK-2) Rel Index Total Protein Albumin Urine WBC (Auto) Vancomycin Trough Salicylates Acetaminophen Plasma/Serum Alcohol Crossmatch 12/25/19 12/25/19 12/26/19 17:37 23:29 09:47 WBC 22.1 H RBC 2.83 L Hgb 7.9 L Hct 25.5 L MCH RDW 20.0 H Plt Count 894 H Lymph % (Auto) Sampson % (Auto) Sampson # Baso # Seg Neutrophils % Seg Neuts % (Manual) Lymphocytes % (Manual) Monocytes % (Manual) Seg Neutrophils # Seg Neutrophils # Man Lymphocytes # (Manual) Monocytes # (Manual) Eosinophils # (Manual) Basophils # (Manual) PT INR APTT ABG pH ABG pO2 ABG HCO3 ABG O2 Saturation ABG Base Excess ABG Hemoglobin Oxyhemoglobin Sodium Potassium Chloride Carbon Dioxide BUN Creatinine Glucose POC Glucose 120 H 140 H Lactic Acid Calcium Ionized Calcium Phosphorus Magnesium Total Bilirubin AST ALT Alkaline Phosphatase Ammonia Total Creatine Kinase CK-MB (CK-2) CK-MB (CK-2) Rel Index Total Protein Albumin Urine WBC (Auto) Vancomycin Trough Salicylates Acetaminophen Plasma/Serum Alcohol Crossmatch 12/26/19 12/26/19 12/26/19 09:47 11:46 17:52 WBC RBC Hgb Hct MCH RDW Plt Count Lymph % (Auto) Sampson % (Auto) Sampson # Baso # Seg Neutrophils % Seg Neuts % (Manual) Lymphocytes % (Manual) Monocytes % (Manual) Seg Neutrophils # Seg Neutrophils # Man Lymphocytes # (Manual) Monocytes # (Manual) Eosinophils # (Manual) Basophils # (Manual) PT INR APTT ABG pH ABG pO2 ABG HCO3 ABG O2 Saturation ABG Base Excess ABG Hemoglobin Oxyhemoglobin Sodium Potassium Chloride Carbon Dioxide 18 L BUN 65 H Creatinine 1.4 H Glucose 132 H POC Glucose 110 H 145 H Lactic Acid Calcium Ionized Calcium Phosphorus Magnesium Total Bilirubin AST ALT Alkaline Phosphatase Ammonia Total Creatine Kinase CK-MB (CK-2) CK-MB (CK-2) Rel Index Total Protein Albumin Urine WBC (Auto) Vancomycin Trough Salicylates Acetaminophen Plasma/Serum Alcohol Crossmatch 12/27/19 12/27/19 12/27/19 00:01 03:42 03:42 WBC 18.0 H RBC 2.86 L Hgb 8.0 L Hct 25.2 L MCH RDW 19.2 H Plt Count 873 H Lymph % (Auto) 8.4 L Sampson % (Auto) 7.5 H Sampson # 1.4 H Baso # 0.2 H Seg Neutrophils % 82.2 H Seg Neuts % (Manual) Lymphocytes % (Manual) Monocytes % (Manual) Seg Neutrophils # 14.8 H Seg Neutrophils # Man Lymphocytes # (Manual) Monocytes # (Manual) Eosinophils # (Manual) Basophils # (Manual) PT INR APTT ABG pH ABG pO2 ABG HCO3 ABG O2 Saturation ABG Base Excess ABG Hemoglobin Oxyhemoglobin Sodium Potassium Chloride Carbon Dioxide BUN 73 H Creatinine 1.4 H Glucose 119 H POC Glucose 124 H Lactic Acid Calcium Ionized Calcium Phosphorus Magnesium Total Bilirubin AST ALT Alkaline Phosphatase Ammonia Total Creatine Kinase CK-MB (CK-2) CK-MB (CK-2) Rel Index Total Protein Albumin Urine WBC (Auto) Vancomycin Trough Salicylates Acetaminophen Plasma/Serum Alcohol Crossmatch 12/27/19 12/27/19 12/27/19 05:45 11:45 17:29 WBC RBC Hgb Hct MCH RDW Plt Count Lymph % (Auto) Sampson % (Auto) Sampson # Baso # Seg Neutrophils % Seg Neuts % (Manual) Lymphocytes % (Manual) Monocytes % (Manual) Seg Neutrophils # Seg Neutrophils # Man Lymphocytes # (Manual) Monocytes # (Manual) Eosinophils # (Manual) Basophils # (Manual) PT INR APTT ABG pH ABG pO2 ABG HCO3 ABG O2 Saturation ABG Base Excess ABG Hemoglobin Oxyhemoglobin Sodium Potassium Chloride Carbon Dioxide BUN Creatinine Glucose POC Glucose 131 H 123 H 134 H Lactic Acid Calcium Ionized Calcium Phosphorus Magnesium Total Bilirubin AST ALT Alkaline Phosphatase Ammonia Total Creatine Kinase CK-MB (CK-2) CK-MB (CK-2) Rel Index Total Protein Albumin Urine WBC (Auto) Vancomycin Trough Salicylates Acetaminophen Plasma/Serum Alcohol Crossmatch 12/28/19 12/28/19 12/28/19 00:12 05:14 11:53 WBC RBC Hgb Hct MCH RDW Plt Count Lymph % (Auto) Sampson % (Auto) Sampson # Baso # Seg Neutrophils % Seg Neuts % (Manual) Lymphocytes % (Manual) Monocytes % (Manual) Seg Neutrophils # Seg Neutrophils # Man Lymphocytes # (Manual) Monocytes # (Manual) Eosinophils # (Manual) Basophils # (Manual) PT INR APTT ABG pH ABG pO2 ABG HCO3 ABG O2 Saturation ABG Base Excess ABG Hemoglobin Oxyhemoglobin Sodium Potassium Chloride Carbon Dioxide BUN Creatinine Glucose POC Glucose 138 H 130 H 146 H Lactic Acid Calcium Ionized Calcium Phosphorus Magnesium Total Bilirubin AST ALT Alkaline Phosphatase Ammonia Total Creatine Kinase CK-MB (CK-2) CK-MB (CK-2) Rel Index Total Protein Albumin Urine WBC (Auto) Vancomycin Trough Salicylates Acetaminophen Plasma/Serum Alcohol Crossmatch 12/28/19 12/29/19 12/29/19 17:39 00:01 18:11 WBC RBC Hgb Hct MCH RDW Plt Count Lymph % (Auto) Sampson % (Auto) Sampson # Baso # Seg Neutrophils % Seg Neuts % (Manual) Lymphocytes % (Manual) Monocytes % (Manual) Seg Neutrophils # Seg Neutrophils # Man Lymphocytes # (Manual) Monocytes # (Manual) Eosinophils # (Manual) Basophils # (Manual) PT INR APTT ABG pH ABG pO2 ABG HCO3 ABG O2 Saturation ABG Base Excess ABG Hemoglobin Oxyhemoglobin Sodium Potassium Chloride Carbon Dioxide BUN Creatinine Glucose POC Glucose 117 H 139 H 130 H Lactic Acid Calcium Ionized Calcium Phosphorus Magnesium Total Bilirubin AST ALT Alkaline Phosphatase Ammonia Total Creatine Kinase CK-MB (CK-2) CK-MB (CK-2) Rel Index Total Protein Albumin Urine WBC (Auto) Vancomycin Trough Salicylates Acetaminophen Plasma/Serum Alcohol Crossmatch 12/29/19 12/30/19 12/30/19 23:09 00:02 01:06 WBC 16.7 H RBC 2.91 L Hgb 8.2 L Hct 25.4 L MCH RDW 18.7 H Plt Count 708 H Lymph % (Auto) 9.4 L Sampson % (Auto) Sampson # 0.9 H Baso # Seg Neutrophils % 83.5 H Seg Neuts % (Manual) Lymphocytes % (Manual) Monocytes % (Manual) Seg Neutrophils # 14.0 H Seg Neutrophils # Man Lymphocytes # (Manual) Monocytes # (Manual) Eosinophils # (Manual) Basophils # (Manual) PT INR APTT ABG pH ABG pO2 ABG HCO3 ABG O2 Saturation ABG Base Excess ABG Hemoglobin Oxyhemoglobin Sodium Potassium Chloride Carbon Dioxide BUN Creatinine Glucose POC Glucose 120 H 114 H Lactic Acid Calcium Ionized Calcium Phosphorus Magnesium Total Bilirubin AST ALT Alkaline Phosphatase Ammonia Total Creatine Kinase CK-MB (CK-2) CK-MB (CK-2) Rel Index Total Protein Albumin Urine WBC (Auto) Vancomycin Trough Salicylates Acetaminophen Plasma/Serum Alcohol Crossmatch 12/30/19 12/30/19 12/30/19 01:06 04:23 05:18 WBC RBC Hgb Hct MCH RDW Plt Count Lymph % (Auto) Sampson % (Auto) Sampson # Baso # Seg Neutrophils % Seg Neuts % (Manual) Lymphocytes % (Manual) Monocytes % (Manual) Seg Neutrophils # Seg Neutrophils # Man Lymphocytes # (Manual) Monocytes # (Manual) Eosinophils # (Manual) Basophils # (Manual) PT INR APTT ABG pH ABG pO2 ABG HCO3 ABG O2 Saturation ABG Base Excess ABG Hemoglobin 8.3 L Oxyhemoglobin Sodium Potassium Chloride Carbon Dioxide BUN 70 H Creatinine Glucose 122 H POC Glucose 130 H Lactic Acid Calcium Ionized Calcium Phosphorus Magnesium Total Bilirubin AST ALT Alkaline Phosphatase Ammonia Total Creatine Kinase CK-MB (CK-2) CK-MB (CK-2) Rel Index Total Protein Albumin Urine WBC (Auto) Vancomycin Trough Salicylates Acetaminophen Plasma/Serum Alcohol Crossmatch 12/30/19 12/30/19 12/30/19 05:40 12:17 17:43 WBC RBC Hgb Hct MCH RDW Plt Count Lymph % (Auto) Sampson % (Auto) Sampson # Baso # Seg Neutrophils % Seg Neuts % (Manual) Lymphocytes % (Manual) Monocytes % (Manual) Seg Neutrophils # Seg Neutrophils # Man Lymphocytes # (Manual) Monocytes # (Manual) Eosinophils # (Manual) Basophils # (Manual) PT INR APTT ABG pH ABG pO2 ABG HCO3 ABG O2 Saturation ABG Base Excess ABG Hemoglobin Oxyhemoglobin Sodium Potassium Chloride Carbon Dioxide BUN Creatinine Glucose POC Glucose 135 H 132 H 118 H Lactic Acid Calcium Ionized Calcium Phosphorus Magnesium Total Bilirubin AST ALT Alkaline Phosphatase Ammonia Total Creatine Kinase CK-MB (CK-2) CK-MB (CK-2) Rel Index Total Protein Albumin Urine WBC (Auto) Vancomycin Trough Salicylates Acetaminophen Plasma/Serum Alcohol Crossmatch 12/30/19 12/31/19 12/31/19 23:29 05:19 17:50 WBC RBC Hgb Hct MCH RDW Plt Count Lymph % (Auto) Sampson % (Auto) Sampson # Baso # Seg Neutrophils % Seg Neuts % (Manual) Lymphocytes % (Manual) Monocytes % (Manual) Seg Neutrophils # Seg Neutrophils # Man Lymphocytes # (Manual) Monocytes # (Manual) Eosinophils # (Manual) Basophils # (Manual) PT INR APTT ABG pH ABG pO2 ABG HCO3 ABG O2 Saturation ABG Base Excess ABG Hemoglobin Oxyhemoglobin Sodium Potassium Chloride Carbon Dioxide BUN Creatinine Glucose POC Glucose 114 H 109 H 116 H Lactic Acid Calcium Ionized Calcium Phosphorus Magnesium Total Bilirubin AST ALT Alkaline Phosphatase Ammonia Total Creatine Kinase CK-MB (CK-2) CK-MB (CK-2) Rel Index Total Protein Albumin Urine WBC (Auto) Vancomycin Trough Salicylates Acetaminophen Plasma/Serum Alcohol Crossmatch 01/01/20 01/01/20 01/01/20 00:10 05:19 12:02 WBC RBC Hgb Hct MCH RDW Plt Count Lymph % (Auto) Sampson % (Auto) Sampson # Baso # Seg Neutrophils % Seg Neuts % (Manual) Lymphocytes % (Manual) Monocytes % (Manual) Seg Neutrophils # Seg Neutrophils # Man Lymphocytes # (Manual) Monocytes # (Manual) Eosinophils # (Manual) Basophils # (Manual) PT INR APTT ABG pH ABG pO2 ABG HCO3 ABG O2 Saturation ABG Base Excess ABG Hemoglobin Oxyhemoglobin Sodium Potassium Chloride Carbon Dioxide BUN Creatinine Glucose POC Glucose 131 H 122 H 136 H Lactic Acid Calcium Ionized Calcium Phosphorus Magnesium Total Bilirubin AST ALT Alkaline Phosphatase Ammonia Total Creatine Kinase CK-MB (CK-2) CK-MB (CK-2) Rel Index Total Protein Albumin Urine WBC (Auto) Vancomycin Trough Salicylates Acetaminophen Plasma/Serum Alcohol Crossmatch 01/02/20 01/02/20 01/02/20 00:24 05:36 11:41 WBC RBC Hgb Hct MCH RDW Plt Count Lymph % (Auto) Sampson % (Auto) Sampson # Baso # Seg Neutrophils % Seg Neuts % (Manual) Lymphocytes % (Manual) Monocytes % (Manual) Seg Neutrophils # Seg Neutrophils # Man Lymphocytes # (Manual) Monocytes # (Manual) Eosinophils # (Manual) Basophils # (Manual) PT INR APTT ABG pH ABG pO2 ABG HCO3 ABG O2 Saturation ABG Base Excess ABG Hemoglobin Oxyhemoglobin Sodium Potassium Chloride Carbon Dioxide BUN Creatinine Glucose POC Glucose 119 H 109 H 125 H Lactic Acid Calcium Ionized Calcium Phosphorus Magnesium Total Bilirubin AST ALT Alkaline Phosphatase Ammonia Total Creatine Kinase CK-MB (CK-2) CK-MB (CK-2) Rel Index Total Protein Albumin Urine WBC (Auto) Vancomycin Trough Salicylates Acetaminophen Plasma/Serum Alcohol Crossmatch 01/02/20 01/03/20 01/03/20 17:49 05:29 12:13 WBC RBC Hgb Hct MCH RDW Plt Count Lymph % (Auto) Sampson % (Auto) Sampson # Baso # Seg Neutrophils % Seg Neuts % (Manual) Lymphocytes % (Manual) Monocytes % (Manual) Seg Neutrophils # Seg Neutrophils # Man Lymphocytes # (Manual) Monocytes # (Manual) Eosinophils # (Manual) Basophils # (Manual) PT INR APTT ABG pH ABG pO2 ABG HCO3 ABG O2 Saturation ABG Base Excess ABG Hemoglobin Oxyhemoglobin Sodium Potassium Chloride Carbon Dioxide BUN Creatinine Glucose POC Glucose 130 H 132 H 113 H Lactic Acid Calcium Ionized Calcium Phosphorus Magnesium Total Bilirubin AST ALT Alkaline Phosphatase Ammonia Total Creatine Kinase CK-MB (CK-2) CK-MB (CK-2) Rel Index Total Protein Albumin Urine WBC (Auto) Vancomycin Trough Salicylates Acetaminophen Plasma/Serum Alcohol Crossmatch 01/03/20 01/04/20 01/04/20 17:32 00:19 05:26 WBC RBC Hgb Hct MCH RDW Plt Count Lymph % (Auto) Sampson % (Auto) Sampson # Baso # Seg Neutrophils % Seg Neuts % (Manual) Lymphocytes % (Manual) Monocytes % (Manual) Seg Neutrophils # Seg Neutrophils # Man Lymphocytes # (Manual) Monocytes # (Manual) Eosinophils # (Manual) Basophils # (Manual) PT INR APTT ABG pH ABG pO2 ABG HCO3 ABG O2 Saturation ABG Base Excess ABG Hemoglobin Oxyhemoglobin Sodium Potassium Chloride Carbon Dioxide BUN Creatinine Glucose POC Glucose 127 H 141 H 129 H Lactic Acid Calcium Ionized Calcium Phosphorus Magnesium Total Bilirubin AST ALT Alkaline Phosphatase Ammonia Total Creatine Kinase CK-MB (CK-2) CK-MB (CK-2) Rel Index Total Protein Albumin Urine WBC (Auto) Vancomycin Trough Salicylates Acetaminophen Plasma/Serum Alcohol Crossmatch 01/04/20 01/04/20 01/05/20 11:39 17:29 05:22 WBC RBC Hgb Hct MCH RDW Plt Count Lymph % (Auto) Sampson % (Auto) Sampson # Baso # Seg Neutrophils % Seg Neuts % (Manual) Lymphocytes % (Manual) Monocytes % (Manual) Seg Neutrophils # Seg Neutrophils # Man Lymphocytes # (Manual) Monocytes # (Manual) Eosinophils # (Manual) Basophils # (Manual) PT INR APTT ABG pH ABG pO2 ABG HCO3 ABG O2 Saturation ABG Base Excess ABG Hemoglobin Oxyhemoglobin Sodium Potassium Chloride Carbon Dioxide BUN Creatinine Glucose POC Glucose 167 H 132 H 121 H Lactic Acid Calcium Ionized Calcium Phosphorus Magnesium Total Bilirubin AST ALT Alkaline Phosphatase Ammonia Total Creatine Kinase CK-MB (CK-2) CK-MB (CK-2) Rel Index Total Protein Albumin Urine WBC (Auto) Vancomycin Trough Salicylates Acetaminophen Plasma/Serum Alcohol Crossmatch 01/05/20 01/05/20 01/05/20 12:25 17:40 18:06 WBC RBC Hgb Hct MCH RDW Plt Count Lymph % (Auto) Sampson % (Auto) Sampson # Baso # Seg Neutrophils % Seg Neuts % (Manual) Lymphocytes % (Manual) Monocytes % (Manual) Seg Neutrophils # Seg Neutrophils # Man Lymphocytes # (Manual) Monocytes # (Manual) Eosinophils # (Manual) Basophils # (Manual) PT INR APTT ABG pH 7.472 H ABG pO2 99.2 H ABG HCO3 ABG O2 Saturation ABG Base Excess ABG Hemoglobin 7.8 L Oxyhemoglobin Sodium Potassium Chloride Carbon Dioxide BUN Creatinine Glucose POC Glucose 106 H 110 H Lactic Acid Calcium Ionized Calcium Phosphorus Magnesium Total Bilirubin AST ALT Alkaline Phosphatase Ammonia Total Creatine Kinase CK-MB (CK-2) CK-MB (CK-2) Rel Index Total Protein Albumin Urine WBC (Auto) Vancomycin Trough Salicylates Acetaminophen Plasma/Serum Alcohol Crossmatch 01/06/20 01/06/20 01/06/20 00:11 05:16 11:30 WBC RBC Hgb Hct MCH RDW Plt Count Lymph % (Auto) Sampson % (Auto) Sampson # Baso # Seg Neutrophils % Seg Neuts % (Manual) Lymphocytes % (Manual) Monocytes % (Manual) Seg Neutrophils # Seg Neutrophils # Man Lymphocytes # (Manual) Monocytes # (Manual) Eosinophils # (Manual) Basophils # (Manual) PT INR APTT ABG pH ABG pO2 ABG HCO3 ABG O2 Saturation ABG Base Excess ABG Hemoglobin Oxyhemoglobin Sodium Potassium Chloride Carbon Dioxide BUN Creatinine Glucose POC Glucose 108 H 124 H 125 H Lactic Acid Calcium Ionized Calcium Phosphorus Magnesium Total Bilirubin AST ALT Alkaline Phosphatase Ammonia Total Creatine Kinase CK-MB (CK-2) CK-MB (CK-2) Rel Index Total Protein Albumin Urine WBC (Auto) Vancomycin Trough Salicylates Acetaminophen Plasma/Serum Alcohol Crossmatch 01/06/20 01/06/20 01/07/20 17:53 23:51 04:12 WBC 16.5 H RBC 3.29 L Hgb 9.3 L Hct 28.1 L MCH RDW 18.2 H Plt Count 526 H Lymph % (Auto) 8.4 L Sampson % (Auto) Sampson # 1.0 H Baso # Seg Neutrophils % 84.4 H Seg Neuts % (Manual) Lymphocytes % (Manual) Monocytes % (Manual) Seg Neutrophils # 13.9 H Seg Neutrophils # Man Lymphocytes # (Manual) Monocytes # (Manual) Eosinophils # (Manual) Basophils # (Manual) PT INR APTT ABG pH ABG pO2 ABG HCO3 ABG O2 Saturation ABG Base Excess ABG Hemoglobin Oxyhemoglobin Sodium Potassium Chloride Carbon Dioxide BUN Creatinine Glucose POC Glucose 166 H 128 H Lactic Acid Calcium Ionized Calcium Phosphorus Magnesium Total Bilirubin AST ALT Alkaline Phosphatase Ammonia Total Creatine Kinase CK-MB (CK-2) CK-MB (CK-2) Rel Index Total Protein Albumin Urine WBC (Auto) Vancomycin Trough Salicylates Acetaminophen Plasma/Serum Alcohol Crossmatch 01/07/20 01/07/20 01/07/20 04:12 04:45 11:51 WBC RBC Hgb Hct MCH RDW Plt Count Lymph % (Auto) Sampson % (Auto) Sampson # Baso # Seg Neutrophils % Seg Neuts % (Manual) Lymphocytes % (Manual) Monocytes % (Manual) Seg Neutrophils # Seg Neutrophils # Man Lymphocytes # (Manual) Monocytes # (Manual) Eosinophils # (Manual) Basophils # (Manual) PT INR APTT ABG pH ABG pO2 ABG HCO3 ABG O2 Saturation ABG Base Excess ABG Hemoglobin Oxyhemoglobin Sodium 136 L Potassium Chloride Carbon Dioxide 21 L BUN 44 H Creatinine 0.6 L Glucose 124 H POC Glucose 134 H 138 H Lactic Acid Calcium Ionized Calcium Phosphorus Magnesium Total Bilirubin AST ALT Alkaline Phosphatase Ammonia Total Creatine Kinase CK-MB (CK-2) CK-MB (CK-2) Rel Index Total Protein Albumin Urine WBC (Auto) Vancomycin Trough Salicylates Acetaminophen Plasma/Serum Alcohol Crossmatch 01/07/20 01/08/20 01/08/20 17:36 00:33 05:29 WBC RBC Hgb Hct MCH RDW Plt Count Lymph % (Auto) Sampson % (Auto) Sampson # Baso # Seg Neutrophils % Seg Neuts % (Manual) Lymphocytes % (Manual) Monocytes % (Manual) Seg Neutrophils # Seg Neutrophils # Man Lymphocytes # (Manual) Monocytes # (Manual) Eosinophils # (Manual) Basophils # (Manual) PT INR APTT ABG pH ABG pO2 ABG HCO3 ABG O2 Saturation ABG Base Excess ABG Hemoglobin Oxyhemoglobin Sodium Potassium Chloride Carbon Dioxide BUN Creatinine Glucose POC Glucose 128 H 119 H 124 H Lactic Acid Calcium Ionized Calcium Phosphorus Magnesium Total Bilirubin AST ALT Alkaline Phosphatase Ammonia Total Creatine Kinase CK-MB (CK-2) CK-MB (CK-2) Rel Index Total Protein Albumin Urine WBC (Auto) Vancomycin Trough Salicylates Acetaminophen Plasma/Serum Alcohol Crossmatch 01/08/20 01/08/20 01/08/20 12:51 20:25 23:22 WBC RBC Hgb Hct MCH RDW Plt Count Lymph % (Auto) Sampson % (Auto) Sampson # Baso # Seg Neutrophils % Seg Neuts % (Manual) Lymphocytes % (Manual) Monocytes % (Manual) Seg Neutrophils # Seg Neutrophils # Man Lymphocytes # (Manual) Monocytes # (Manual) Eosinophils # (Manual) Basophils # (Manual) PT INR APTT ABG pH ABG pO2 132.2 H ABG HCO3 ABG O2 Saturation ABG Base Excess ABG Hemoglobin Oxyhemoglobin Sodium Potassium Chloride Carbon Dioxide BUN Creatinine Glucose POC Glucose 128 H 127 H Lactic Acid Calcium Ionized Calcium Phosphorus Magnesium Total Bilirubin AST ALT Alkaline Phosphatase Ammonia Total Creatine Kinase CK-MB (CK-2) CK-MB (CK-2) Rel Index Total Protein Albumin Urine WBC (Auto) Vancomycin Trough Salicylates Acetaminophen Plasma/Serum Alcohol Crossmatch 01/09/20 01/09/20 01/09/20 05:48 08:51 11:29 WBC RBC Hgb Hct MCH RDW Plt Count Lymph % (Auto) Sampson % (Auto) Sampson # Baso # Seg Neutrophils % Seg Neuts % (Manual) Lymphocytes % (Manual) Monocytes % (Manual) Seg Neutrophils # Seg Neutrophils # Man Lymphocytes # (Manual) Monocytes # (Manual) Eosinophils # (Manual) Basophils # (Manual) PT INR APTT ABG pH ABG pO2 94.3 H ABG HCO3 ABG O2 Saturation ABG Base Excess ABG Hemoglobin 9.5 L Oxyhemoglobin Sodium Potassium Chloride Carbon Dioxide BUN Creatinine Glucose POC Glucose 120 H 112 H Lactic Acid Calcium Ionized Calcium Phosphorus Magnesium Total Bilirubin AST ALT Alkaline Phosphatase Ammonia Total Creatine Kinase CK-MB (CK-2) CK-MB (CK-2) Rel Index Total Protein Albumin Urine WBC (Auto) Vancomycin Trough Salicylates Acetaminophen Plasma/Serum Alcohol Crossmatch 01/09/20 01/10/20 01/10/20 17:57 05:17 12:28 WBC RBC Hgb Hct MCH RDW Plt Count Lymph % (Auto) Sampson % (Auto) Sampson # Baso # Seg Neutrophils % Seg Neuts % (Manual) Lymphocytes % (Manual) Monocytes % (Manual) Seg Neutrophils # Seg Neutrophils # Man Lymphocytes # (Manual) Monocytes # (Manual) Eosinophils # (Manual) Basophils # (Manual) PT INR APTT ABG pH ABG pO2 ABG HCO3 ABG O2 Saturation ABG Base Excess ABG Hemoglobin Oxyhemoglobin Sodium Potassium Chloride Carbon Dioxide BUN Creatinine Glucose POC Glucose 122 H 115 H 116 H Lactic Acid Calcium Ionized Calcium Phosphorus Magnesium Total Bilirubin AST ALT Alkaline Phosphatase Ammonia Total Creatine Kinase CK-MB (CK-2) CK-MB (CK-2) Rel Index Total Protein Albumin Urine WBC (Auto) Vancomycin Trough Salicylates Acetaminophen Plasma/Serum Alcohol Crossmatch 01/10/20 01/10/20 01/11/20 18:25 23:47 06:05 WBC RBC Hgb Hct MCH RDW Plt Count Lymph % (Auto) Sampson % (Auto) Sampson # Baso # Seg Neutrophils % Seg Neuts % (Manual) Lymphocytes % (Manual) Monocytes % (Manual) Seg Neutrophils # Seg Neutrophils # Man Lymphocytes # (Manual) Monocytes # (Manual) Eosinophils # (Manual) Basophils # (Manual) PT INR APTT ABG pH ABG pO2 ABG HCO3 ABG O2 Saturation ABG Base Excess ABG Hemoglobin Oxyhemoglobin Sodium Potassium Chloride Carbon Dioxide BUN Creatinine Glucose POC Glucose 123 H 115 H 151 H Lactic Acid Calcium Ionized Calcium Phosphorus Magnesium Total Bilirubin AST ALT Alkaline Phosphatase Ammonia Total Creatine Kinase CK-MB (CK-2) CK-MB (CK-2) Rel Index Total Protein Albumin Urine WBC (Auto) Vancomycin Trough Salicylates Acetaminophen Plasma/Serum Alcohol Crossmatch 01/11/20 01/11/20 01/11/20 07:00 07:00 12:27 WBC 11.8 H RBC 3.40 L Hgb 9.4 L Hct 29.3 L MCH RDW 18.1 H Plt Count 549 H Lymph % (Auto) Sampson % (Auto) 9.1 H Sampson # 1.1 H Baso # Seg Neutrophils % 73.3 H Seg Neuts % (Manual) Lymphocytes % (Manual) Monocytes % (Manual) Seg Neutrophils # 8.7 H Seg Neutrophils # Man Lymphocytes # (Manual) Monocytes # (Manual) Eosinophils # (Manual) Basophils # (Manual) PT INR APTT ABG pH ABG pO2 ABG HCO3 ABG O2 Saturation ABG Base Excess ABG Hemoglobin Oxyhemoglobin Sodium 134 L Potassium Chloride 97.7 L Carbon Dioxide 21 L BUN 38 H Creatinine 0.5 L Glucose 168 H POC Glucose 117 H Lactic Acid Calcium 10.5 H Ionized Calcium Phosphorus Magnesium Total Bilirubin AST ALT Alkaline Phosphatase Ammonia Total Creatine Kinase CK-MB (CK-2) CK-MB (CK-2) Rel Index Total Protein Albumin Urine WBC (Auto) Vancomycin Trough Salicylates Acetaminophen Plasma/Serum Alcohol Crossmatch 01/11/20 01/12/20 01/12/20 18:19 00:53 05:24 WBC RBC Hgb Hct MCH RDW Plt Count Lymph % (Auto) Sampson % (Auto) Sampson # Baso # Seg Neutrophils % Seg Neuts % (Manual) Lymphocytes % (Manual) Monocytes % (Manual) Seg Neutrophils # Seg Neutrophils # Man Lymphocytes # (Manual) Monocytes # (Manual) Eosinophils # (Manual) Basophils # (Manual) PT INR APTT ABG pH ABG pO2 ABG HCO3 ABG O2 Saturation ABG Base Excess ABG Hemoglobin Oxyhemoglobin Sodium Potassium Chloride Carbon Dioxide BUN Creatinine Glucose POC Glucose 126 H 126 H 128 H Lactic Acid Calcium Ionized Calcium Phosphorus Magnesium Total Bilirubin AST ALT Alkaline Phosphatase Ammonia Total Creatine Kinase CK-MB (CK-2) CK-MB (CK-2) Rel Index Total Protein Albumin Urine WBC (Auto) Vancomycin Trough Salicylates Acetaminophen Plasma/Serum Alcohol Crossmatch 01/12/20 01/12/20 01/13/20 13:39 18:02 00:27 WBC RBC Hgb Hct MCH RDW Plt Count Lymph % (Auto) Sampson % (Auto) Sampson # Baso # Seg Neutrophils % Seg Neuts % (Manual) Lymphocytes % (Manual) Monocytes % (Manual) Seg Neutrophils # Seg Neutrophils # Man Lymphocytes # (Manual) Monocytes # (Manual) Eosinophils # (Manual) Basophils # (Manual) PT INR APTT ABG pH ABG pO2 ABG HCO3 ABG O2 Saturation ABG Base Excess ABG Hemoglobin Oxyhemoglobin Sodium Potassium Chloride Carbon Dioxide BUN Creatinine Glucose POC Glucose 146 H 125 H 131 H Lactic Acid Calcium Ionized Calcium Phosphorus Magnesium Total Bilirubin AST ALT Alkaline Phosphatase Ammonia Total Creatine Kinase CK-MB (CK-2) CK-MB (CK-2) Rel Index Total Protein Albumin Urine WBC (Auto) Vancomycin Trough Salicylates Acetaminophen Plasma/Serum Alcohol Crossmatch 01/13/20 01/13/20 01/13/20 05:44 11:54 17:18 WBC RBC Hgb Hct MCH RDW Plt Count Lymph % (Auto) Sampson % (Auto) Sampson # Baso # Seg Neutrophils % Seg Neuts % (Manual) Lymphocytes % (Manual) Monocytes % (Manual) Seg Neutrophils # Seg Neutrophils # Man Lymphocytes # (Manual) Monocytes # (Manual) Eosinophils # (Manual) Basophils # (Manual) PT INR APTT ABG pH ABG pO2 ABG HCO3 ABG O2 Saturation ABG Base Excess ABG Hemoglobin Oxyhemoglobin Sodium Potassium Chloride Carbon Dioxide BUN Creatinine Glucose POC Glucose 148 H 140 H 130 H Lactic Acid Calcium Ionized Calcium Phosphorus Magnesium Total Bilirubin AST ALT Alkaline Phosphatase Ammonia Total Creatine Kinase CK-MB (CK-2) CK-MB (CK-2) Rel Index Total Protein Albumin Urine WBC (Auto) Vancomycin Trough Salicylates Acetaminophen Plasma/Serum Alcohol Crossmatch 01/14/20 01/14/20 01/14/20 00:16 05:45 12:19 WBC RBC Hgb Hct MCH RDW Plt Count Lymph % (Auto) Sampson % (Auto) Sampson # Baso # Seg Neutrophils % Seg Neuts % (Manual) Lymphocytes % (Manual) Monocytes % (Manual) Seg Neutrophils # Seg Neutrophils # Man Lymphocytes # (Manual) Monocytes # (Manual) Eosinophils # (Manual) Basophils # (Manual) PT INR APTT ABG pH ABG pO2 ABG HCO3 ABG O2 Saturation ABG Base Excess ABG Hemoglobin Oxyhemoglobin Sodium Potassium Chloride Carbon Dioxide BUN Creatinine Glucose POC Glucose 125 H 146 H 147 H Lactic Acid Calcium Ionized Calcium Phosphorus Magnesium Total Bilirubin AST ALT Alkaline Phosphatase Ammonia Total Creatine Kinase CK-MB (CK-2) CK-MB (CK-2) Rel Index Total Protein Albumin Urine WBC (Auto) Vancomycin Trough Salicylates Acetaminophen Plasma/Serum Alcohol Crossmatch 01/14/20 01/14/20 01/15/20 18:10 23:54 05:14 WBC RBC Hgb Hct MCH RDW Plt Count Lymph % (Auto) Sampson % (Auto) Sampson # Baso # Seg Neutrophils % Seg Neuts % (Manual) Lymphocytes % (Manual) Monocytes % (Manual) Seg Neutrophils # Seg Neutrophils # Man Lymphocytes # (Manual) Monocytes # (Manual) Eosinophils # (Manual) Basophils # (Manual) PT INR APTT ABG pH ABG pO2 ABG HCO3 ABG O2 Saturation ABG Base Excess ABG Hemoglobin Oxyhemoglobin Sodium Potassium Chloride Carbon Dioxide BUN Creatinine Glucose POC Glucose 136 H 109 H 111 H Lactic Acid Calcium Ionized Calcium Phosphorus Magnesium Total Bilirubin AST ALT Alkaline Phosphatase Ammonia Total Creatine Kinase CK-MB (CK-2) CK-MB (CK-2) Rel Index Total Protein Albumin Urine WBC (Auto) Vancomycin Trough Salicylates Acetaminophen Plasma/Serum Alcohol Crossmatch 01/15/20 01/15/20 01/16/20 12:34 23:25 05:06 WBC RBC Hgb Hct MCH RDW Plt Count Lymph % (Auto) Sampson % (Auto) Sampson # Baso # Seg Neutrophils % Seg Neuts % (Manual) Lymphocytes % (Manual) Monocytes % (Manual) Seg Neutrophils # Seg Neutrophils # Man Lymphocytes # (Manual) Monocytes # (Manual) Eosinophils # (Manual) Basophils # (Manual) PT INR APTT ABG pH ABG pO2 ABG HCO3 ABG O2 Saturation ABG Base Excess ABG Hemoglobin Oxyhemoglobin Sodium Potassium Chloride Carbon Dioxide BUN Creatinine Glucose POC Glucose 131 H 120 H 121 H Lactic Acid Calcium Ionized Calcium Phosphorus Magnesium Total Bilirubin AST ALT Alkaline Phosphatase Ammonia Total Creatine Kinase CK-MB (CK-2) CK-MB (CK-2) Rel Index Total Protein Albumin Urine WBC (Auto) Vancomycin Trough Salicylates Acetaminophen Plasma/Serum Alcohol Crossmatch 01/16/20 01/16/20 01/17/20 12:15 23:46 05:32 WBC 13.6 H RBC 3.27 L Hgb 9.3 L Hct 28.5 L MCH RDW 17.0 H Plt Count 490 H Lymph % (Auto) 13.1 L Sampson % (Auto) Sampson # 1.0 H Baso # Seg Neutrophils % 77.5 H Seg Neuts % (Manual) Lymphocytes % (Manual) Monocytes % (Manual) Seg Neutrophils # 10.5 H Seg Neutrophils # Man Lymphocytes # (Manual) Monocytes # (Manual) Eosinophils # (Manual) Basophils # (Manual) PT INR APTT ABG pH ABG pO2 ABG HCO3 ABG O2 Saturation ABG Base Excess ABG Hemoglobin Oxyhemoglobin Sodium Potassium Chloride Carbon Dioxide BUN Creatinine Glucose POC Glucose 152 H 107 H Lactic Acid Calcium Ionized Calcium Phosphorus Magnesium Total Bilirubin AST ALT Alkaline Phosphatase Ammonia Total Creatine Kinase CK-MB (CK-2) CK-MB (CK-2) Rel Index Total Protein Albumin Urine WBC (Auto) Vancomycin Trough Salicylates Acetaminophen Plasma/Serum Alcohol Crossmatch 01/17/20 01/17/20 01/17/20 06:47 12:16 17:21 WBC RBC Hgb Hct MCH RDW Plt Count Lymph % (Auto) Sampson % (Auto) Sampson # Baso # Seg Neutrophils % Seg Neuts % (Manual) Lymphocytes % (Manual) Monocytes % (Manual) Seg Neutrophils # Seg Neutrophils # Man Lymphocytes # (Manual) Monocytes # (Manual) Eosinophils # (Manual) Basophils # (Manual) PT INR APTT ABG pH ABG pO2 ABG HCO3 ABG O2 Saturation ABG Base Excess ABG Hemoglobin Oxyhemoglobin Sodium Potassium Chloride Carbon Dioxide BUN Creatinine Glucose POC Glucose 112 H 145 H 150 H Lactic Acid Calcium Ionized Calcium Phosphorus Magnesium Total Bilirubin AST ALT Alkaline Phosphatase Ammonia Total Creatine Kinase CK-MB (CK-2) CK-MB (CK-2) Rel Index Total Protein Albumin Urine WBC (Auto) Vancomycin Trough Salicylates Acetaminophen Plasma/Serum Alcohol Crossmatch 01/17/20 01/18/20 01/18/20 23:34 05:47 12:43 WBC RBC Hgb Hct MCH RDW Plt Count Lymph % (Auto) Sampson % (Auto) Sampson # Baso # Seg Neutrophils % Seg Neuts % (Manual) Lymphocytes % (Manual) Monocytes % (Manual) Seg Neutrophils # Seg Neutrophils # Man Lymphocytes # (Manual) Monocytes # (Manual) Eosinophils # (Manual) Basophils # (Manual) PT INR APTT ABG pH ABG pO2 ABG HCO3 ABG O2 Saturation ABG Base Excess ABG Hemoglobin Oxyhemoglobin Sodium Potassium Chloride Carbon Dioxide BUN Creatinine Glucose POC Glucose 160 H 130 H 124 H Lactic Acid Calcium Ionized Calcium Phosphorus Magnesium Total Bilirubin AST ALT Alkaline Phosphatase Ammonia Total Creatine Kinase CK-MB (CK-2) CK-MB (CK-2) Rel Index Total Protein Albumin Urine WBC (Auto) Vancomycin Trough Salicylates Acetaminophen Plasma/Serum Alcohol Crossmatch 01/18/20 01/19/20 01/19/20 18:26 00:14 06:24 WBC RBC Hgb Hct MCH RDW Plt Count Lymph % (Auto) Sampson % (Auto) Sampson # Baso # Seg Neutrophils % Seg Neuts % (Manual) Lymphocytes % (Manual) Monocytes % (Manual) Seg Neutrophils # Seg Neutrophils # Man Lymphocytes # (Manual) Monocytes # (Manual) Eosinophils # (Manual) Basophils # (Manual) PT INR APTT ABG pH ABG pO2 ABG HCO3 ABG O2 Saturation ABG Base Excess ABG Hemoglobin Oxyhemoglobin Sodium Potassium Chloride Carbon Dioxide BUN Creatinine Glucose POC Glucose 119 H 114 H 144 H Lactic Acid Calcium Ionized Calcium Phosphorus Magnesium Total Bilirubin AST ALT Alkaline Phosphatase Ammonia Total Creatine Kinase CK-MB (CK-2) CK-MB (CK-2) Rel Index Total Protein Albumin Urine WBC (Auto) Vancomycin Trough Salicylates Acetaminophen Plasma/Serum Alcohol Crossmatch 01/19/20 01/19/20 01/20/20 12:24 17:50 12:06 WBC RBC Hgb Hct MCH RDW Plt Count Lymph % (Auto) Sampson % (Auto) Sampson # Baso # Seg Neutrophils % Seg Neuts % (Manual) Lymphocytes % (Manual) Monocytes % (Manual) Seg Neutrophils # Seg Neutrophils # Man Lymphocytes # (Manual) Monocytes # (Manual) Eosinophils # (Manual) Basophils # (Manual) PT INR APTT ABG pH ABG pO2 ABG HCO3 ABG O2 Saturation ABG Base Excess ABG Hemoglobin Oxyhemoglobin Sodium Potassium Chloride Carbon Dioxide BUN Creatinine Glucose POC Glucose 132 H 144 H 135 H Lactic Acid Calcium Ionized Calcium Phosphorus Magnesium Total Bilirubin AST ALT Alkaline Phosphatase Ammonia Total Creatine Kinase CK-MB (CK-2) CK-MB (CK-2) Rel Index Total Protein Albumin Urine WBC (Auto) Vancomycin Trough Salicylates Acetaminophen Plasma/Serum Alcohol Crossmatch 01/21/20 01/21/20 01/21/20 05:46 13:02 23:49 WBC RBC Hgb Hct MCH RDW Plt Count Lymph % (Auto) Sampson % (Auto) Sampson # Baso # Seg Neutrophils % Seg Neuts % (Manual) Lymphocytes % (Manual) Monocytes % (Manual) Seg Neutrophils # Seg Neutrophils # Man Lymphocytes # (Manual) Monocytes # (Manual) Eosinophils # (Manual) Basophils # (Manual) PT INR APTT ABG pH ABG pO2 ABG HCO3 ABG O2 Saturation ABG Base Excess ABG Hemoglobin Oxyhemoglobin Sodium Potassium Chloride Carbon Dioxide BUN Creatinine Glucose POC Glucose 114 H 136 H 120 H Lactic Acid Calcium Ionized Calcium Phosphorus Magnesium Total Bilirubin AST ALT Alkaline Phosphatase Ammonia Total Creatine Kinase CK-MB (CK-2) CK-MB (CK-2) Rel Index Total Protein Albumin Urine WBC (Auto) Vancomycin Trough Salicylates Acetaminophen Plasma/Serum Alcohol Crossmatch 01/22/20 01/22/20 01/22/20 05:41 11:44 16:31 WBC RBC Hgb Hct MCH RDW Plt Count Lymph % (Auto) Sampson % (Auto) Sampson # Baso # Seg Neutrophils % Seg Neuts % (Manual) Lymphocytes % (Manual) Monocytes % (Manual) Seg Neutrophils # Seg Neutrophils # Man Lymphocytes # (Manual) Monocytes # (Manual) Eosinophils # (Manual) Basophils # (Manual) PT INR APTT ABG pH ABG pO2 ABG HCO3 ABG O2 Saturation ABG Base Excess ABG Hemoglobin Oxyhemoglobin Sodium Potassium Chloride Carbon Dioxide BUN Creatinine Glucose POC Glucose 124 H 173 H 111 H Lactic Acid Calcium Ionized Calcium Phosphorus Magnesium Total Bilirubin AST ALT Alkaline Phosphatase Ammonia Total Creatine Kinase CK-MB (CK-2) CK-MB (CK-2) Rel Index Total Protein Albumin Urine WBC (Auto) Vancomycin Trough Salicylates Acetaminophen Plasma/Serum Alcohol Crossmatch 01/22/20 01/23/20 01/23/20 23:25 05:15 12:15 WBC RBC Hgb Hct MCH RDW Plt Count Lymph % (Auto) Sampson % (Auto) Sampson # Baso # Seg Neutrophils % Seg Neuts % (Manual) Lymphocytes % (Manual) Monocytes % (Manual) Seg Neutrophils # Seg Neutrophils # Man Lymphocytes # (Manual) Monocytes # (Manual) Eosinophils # (Manual) Basophils # (Manual) PT INR APTT ABG pH ABG pO2 ABG HCO3 ABG O2 Saturation ABG Base Excess ABG Hemoglobin Oxyhemoglobin Sodium Potassium Chloride Carbon Dioxide BUN Creatinine Glucose POC Glucose 134 H 117 H 129 H Lactic Acid Calcium Ionized Calcium Phosphorus Magnesium Total Bilirubin AST ALT Alkaline Phosphatase Ammonia Total Creatine Kinase CK-MB (CK-2) CK-MB (CK-2) Rel Index Total Protein Albumin Urine WBC (Auto) Vancomycin Trough Salicylates Acetaminophen Plasma/Serum Alcohol Crossmatch 01/23/20 01/23/20 01/23/20 16:58 21:17 23:47 WBC RBC Hgb Hct MCH RDW Plt Count Lymph % (Auto) Sampson % (Auto) Sampson # Baso # Seg Neutrophils % Seg Neuts % (Manual) Lymphocytes % (Manual) Monocytes % (Manual) Seg Neutrophils # Seg Neutrophils # Man Lymphocytes # (Manual) Monocytes # (Manual) Eosinophils # (Manual) Basophils # (Manual) PT INR APTT ABG pH ABG pO2 ABG HCO3 ABG O2 Saturation ABG Base Excess ABG Hemoglobin Oxyhemoglobin Sodium Potassium Chloride Carbon Dioxide BUN Creatinine Glucose POC Glucose 156 H 185 H 156 H Lactic Acid Calcium Ionized Calcium Phosphorus Magnesium Total Bilirubin AST ALT Alkaline Phosphatase Ammonia Total Creatine Kinase CK-MB (CK-2) CK-MB (CK-2) Rel Index Total Protein Albumin Urine WBC (Auto) Vancomycin Trough Salicylates Acetaminophen Plasma/Serum Alcohol Crossmatch 01/24/20 01/24/20 01/24/20 04:47 04:47 05:59 WBC 17.8 H RBC 3.60 L Hgb Hct MCH RDW 16.2 H Plt Count 688 H Lymph % (Auto) 11.8 L Sampson % (Auto) 7.5 H Sampson # 1.3 H Baso # Seg Neutrophils % 79.9 H Seg Neuts % (Manual) Lymphocytes % (Manual) Monocytes % (Manual) Seg Neutrophils # 14.2 H Seg Neutrophils # Man Lymphocytes # (Manual) Monocytes # (Manual) Eosinophils # (Manual) Basophils # (Manual) PT INR APTT ABG pH ABG pO2 ABG HCO3 ABG O2 Saturation ABG Base Excess ABG Hemoglobin Oxyhemoglobin Sodium 131 L Potassium Chloride 91.2 L Carbon Dioxide BUN 22 H Creatinine 0.3 L Glucose 123 H POC Glucose 147 H Lactic Acid Calcium 10.9 H Ionized Calcium Phosphorus Magnesium Total Bilirubin AST ALT Alkaline Phosphatase Ammonia Total Creatine Kinase CK-MB (CK-2) CK-MB (CK-2) Rel Index Total Protein Albumin Urine WBC (Auto) Vancomycin Trough Salicylates Acetaminophen Plasma/Serum Alcohol Crossmatch 01/24/20 01/24/20 01/25/20 11:47 16:45 00:18 WBC RBC Hgb Hct MCH RDW Plt Count Lymph % (Auto) Sampson % (Auto) Sampson # Baso # Seg Neutrophils % Seg Neuts % (Manual) Lymphocytes % (Manual) Monocytes % (Manual) Seg Neutrophils # Seg Neutrophils # Man Lymphocytes # (Manual) Monocytes # (Manual) Eosinophils # (Manual) Basophils # (Manual) PT INR APTT ABG pH ABG pO2 ABG HCO3 ABG O2 Saturation ABG Base Excess ABG Hemoglobin Oxyhemoglobin Sodium Potassium Chloride Carbon Dioxide BUN Creatinine Glucose POC Glucose 114 H 108 H 119 H Lactic Acid Calcium Ionized Calcium Phosphorus Magnesium Total Bilirubin AST ALT Alkaline Phosphatase Ammonia Total Creatine Kinase CK-MB (CK-2) CK-MB (CK-2) Rel Index Total Protein Albumin Urine WBC (Auto) Vancomycin Trough Salicylates Acetaminophen Plasma/Serum Alcohol Crossmatch 01/25/20 01/25/20 01/25/20 07:18 11:58 16:56 WBC RBC Hgb Hct MCH RDW Plt Count Lymph % (Auto) Sampson % (Auto) Sampson # Baso # Seg Neutrophils % Seg Neuts % (Manual) Lymphocytes % (Manual) Monocytes % (Manual) Seg Neutrophils # Seg Neutrophils # Man Lymphocytes # (Manual) Monocytes # (Manual) Eosinophils # (Manual) Basophils # (Manual) PT INR APTT ABG pH ABG pO2 ABG HCO3 ABG O2 Saturation ABG Base Excess ABG Hemoglobin Oxyhemoglobin Sodium Potassium Chloride Carbon Dioxide BUN Creatinine Glucose POC Glucose 136 H 136 H 147 H Lactic Acid Calcium Ionized Calcium Phosphorus Magnesium Total Bilirubin AST ALT Alkaline Phosphatase Ammonia Total Creatine Kinase CK-MB (CK-2) CK-MB (CK-2) Rel Index Total Protein Albumin Urine WBC (Auto) Vancomycin Trough Salicylates Acetaminophen Plasma/Serum Alcohol Crossmatch 01/26/20 01/26/20 01/26/20 00:29 05:59 05:59 WBC 12.8 H RBC Hgb Hct MCH RDW 16.4 H Plt Count 743 H Lymph % (Auto) Sampson % (Auto) Sampson # 0.9 H Baso # Seg Neutrophils % 76.2 H Seg Neuts % (Manual) Lymphocytes % (Manual) Monocytes % (Manual) Seg Neutrophils # 9.8 H Seg Neutrophils # Man Lymphocytes # (Manual) Monocytes # (Manual) Eosinophils # (Manual) Basophils # (Manual) PT INR APTT ABG pH ABG pO2 ABG HCO3 ABG O2 Saturation ABG Base Excess ABG Hemoglobin Oxyhemoglobin Sodium 132 L Potassium Chloride 90.9 L Carbon Dioxide BUN 23 H Creatinine 0.4 L Glucose 122 H POC Glucose 107 H Lactic Acid Calcium 11.0 H Ionized Calcium Phosphorus Magnesium Total Bilirubin AST ALT Alkaline Phosphatase Ammonia Total Creatine Kinase CK-MB (CK-2) CK-MB (CK-2) Rel Index Total Protein Albumin Urine WBC (Auto) Vancomycin Trough Salicylates Acetaminophen Plasma/Serum Alcohol Crossmatch 01/26/20 01/26/20 01/26/20 06:27 12:06 16:49 WBC RBC Hgb Hct MCH RDW Plt Count Lymph % (Auto) Sampson % (Auto) Sampson # Baso # Seg Neutrophils % Seg Neuts % (Manual) Lymphocytes % (Manual) Monocytes % (Manual) Seg Neutrophils # Seg Neutrophils # Man Lymphocytes # (Manual) Monocytes # (Manual) Eosinophils # (Manual) Basophils # (Manual) PT INR APTT ABG pH ABG pO2 ABG HCO3 ABG O2 Saturation ABG Base Excess ABG Hemoglobin Oxyhemoglobin Sodium Potassium Chloride Carbon Dioxide BUN Creatinine Glucose POC Glucose 132 H 132 H 110 H Lactic Acid Calcium Ionized Calcium Phosphorus Magnesium Total Bilirubin AST ALT Alkaline Phosphatase Ammonia Total Creatine Kinase CK-MB (CK-2) CK-MB (CK-2) Rel Index Total Protein Albumin Urine WBC (Auto) Vancomycin Trough Salicylates Acetaminophen Plasma/Serum Alcohol Crossmatch 01/27/20 01/27/20 01/27/20 00:08 11:49 16:24 WBC RBC Hgb Hct MCH RDW Plt Count Lymph % (Auto) Sampson % (Auto) Sampson # Baso # Seg Neutrophils % Seg Neuts % (Manual) Lymphocytes % (Manual) Monocytes % (Manual) Seg Neutrophils # Seg Neutrophils # Man Lymphocytes # (Manual) Monocytes # (Manual) Eosinophils # (Manual) Basophils # (Manual) PT INR APTT ABG pH ABG pO2 ABG HCO3 ABG O2 Saturation ABG Base Excess ABG Hemoglobin Oxyhemoglobin Sodium Potassium Chloride Carbon Dioxide BUN Creatinine Glucose POC Glucose 107 H 119 H 129 H Lactic Acid Calcium Ionized Calcium Phosphorus Magnesium Total Bilirubin AST ALT Alkaline Phosphatase Ammonia Total Creatine Kinase CK-MB (CK-2) CK-MB (CK-2) Rel Index Total Protein Albumin Urine WBC (Auto) Vancomycin Trough Salicylates Acetaminophen Plasma/Serum Alcohol Crossmatch 01/27/20 01/28/20 01/28/20 18:28 01:00 06:22 WBC RBC Hgb Hct MCH RDW Plt Count Lymph % (Auto) Sampson % (Auto) Sampson # Baso # Seg Neutrophils % Seg Neuts % (Manual) Lymphocytes % (Manual) Monocytes % (Manual) Seg Neutrophils # Seg Neutrophils # Man Lymphocytes # (Manual) Monocytes # (Manual) Eosinophils # (Manual) Basophils # (Manual) PT INR APTT ABG pH ABG pO2 ABG HCO3 ABG O2 Saturation ABG Base Excess ABG Hemoglobin Oxyhemoglobin Sodium Potassium Chloride Carbon Dioxide BUN Creatinine Glucose POC Glucose 126 H 121 H 114 H Lactic Acid Calcium Ionized Calcium Phosphorus Magnesium Total Bilirubin AST ALT Alkaline Phosphatase Ammonia Total Creatine Kinase CK-MB (CK-2) CK-MB (CK-2) Rel Index Total Protein Albumin Urine WBC (Auto) Vancomycin Trough Salicylates Acetaminophen Plasma/Serum Alcohol Crossmatch 01/28/20 01/28/20 01/29/20 11:47 18:00 00:05 WBC RBC Hgb Hct MCH RDW Plt Count Lymph % (Auto) Sampson % (Auto) Sampson # Baso # Seg Neutrophils % Seg Neuts % (Manual) Lymphocytes % (Manual) Monocytes % (Manual) Seg Neutrophils # Seg Neutrophils # Man Lymphocytes # (Manual) Monocytes # (Manual) Eosinophils # (Manual) Basophils # (Manual) PT INR APTT ABG pH ABG pO2 ABG HCO3 ABG O2 Saturation ABG Base Excess ABG Hemoglobin Oxyhemoglobin Sodium Potassium Chloride Carbon Dioxide BUN Creatinine Glucose POC Glucose 106 H 117 H 127 H Lactic Acid Calcium Ionized Calcium Phosphorus Magnesium Total Bilirubin AST ALT Alkaline Phosphatase Ammonia Total Creatine Kinase CK-MB (CK-2) CK-MB (CK-2) Rel Index Total Protein Albumin Urine WBC (Auto) Vancomycin Trough Salicylates Acetaminophen Plasma/Serum Alcohol Crossmatch 01/29/20 01/29/20 01/29/20 06:04 11:40 16:38 WBC RBC Hgb Hct MCH RDW Plt Count Lymph % (Auto) Sampson % (Auto) Sampson # Baso # Seg Neutrophils % Seg Neuts % (Manual) Lymphocytes % (Manual) Monocytes % (Manual) Seg Neutrophils # Seg Neutrophils # Man Lymphocytes # (Manual) Monocytes # (Manual) Eosinophils # (Manual) Basophils # (Manual) PT INR APTT ABG pH ABG pO2 ABG HCO3 ABG O2 Saturation ABG Base Excess ABG Hemoglobin Oxyhemoglobin Sodium Potassium Chloride Carbon Dioxide BUN Creatinine Glucose POC Glucose 147 H 139 H 143 H Lactic Acid Calcium Ionized Calcium Phosphorus Magnesium Total Bilirubin AST ALT Alkaline Phosphatase Ammonia Total Creatine Kinase CK-MB (CK-2) CK-MB (CK-2) Rel Index Total Protein Albumin Urine WBC (Auto) Vancomycin Trough Salicylates Acetaminophen Plasma/Serum Alcohol Crossmatch 01/29/20 01/30/20 01/30/20 23:46 06:43 12:07 WBC RBC Hgb Hct MCH RDW Plt Count Lymph % (Auto) Sampson % (Auto) Sampson # Baso # Seg Neutrophils % Seg Neuts % (Manual) Lymphocytes % (Manual) Monocytes % (Manual) Seg Neutrophils # Seg Neutrophils # Man Lymphocytes # (Manual) Monocytes # (Manual) Eosinophils # (Manual) Basophils # (Manual) PT INR APTT ABG pH ABG pO2 ABG HCO3 ABG O2 Saturation ABG Base Excess ABG Hemoglobin Oxyhemoglobin Sodium Potassium Chloride Carbon Dioxide BUN Creatinine Glucose POC Glucose 122 H 122 H 134 H Lactic Acid Calcium Ionized Calcium Phosphorus Magnesium Total Bilirubin AST ALT Alkaline Phosphatase Ammonia Total Creatine Kinase CK-MB (CK-2) CK-MB (CK-2) Rel Index Total Protein Albumin Urine WBC (Auto) Vancomycin Trough Salicylates Acetaminophen Plasma/Serum Alcohol Crossmatch 01/30/20 01/31/20 01/31/20 17:59 00:52 05:54 WBC RBC Hgb Hct MCH RDW Plt Count Lymph % (Auto) Sampson % (Auto) Sampson # Baso # Seg Neutrophils % Seg Neuts % (Manual) Lymphocytes % (Manual) Monocytes % (Manual) Seg Neutrophils # Seg Neutrophils # Man Lymphocytes # (Manual) Monocytes # (Manual) Eosinophils # (Manual) Basophils # (Manual) PT INR APTT ABG pH ABG pO2 ABG HCO3 ABG O2 Saturation ABG Base Excess ABG Hemoglobin Oxyhemoglobin Sodium Potassium Chloride Carbon Dioxide BUN Creatinine Glucose POC Glucose 116 H 127 H 127 H Lactic Acid Calcium Ionized Calcium Phosphorus Magnesium Total Bilirubin AST ALT Alkaline Phosphatase Ammonia Total Creatine Kinase CK-MB (CK-2) CK-MB (CK-2) Rel Index Total Protein Albumin Urine WBC (Auto) Vancomycin Trough Salicylates Acetaminophen Plasma/Serum Alcohol Crossmatch 01/31/20 02/01/20 02/01/20 12:20 00:48 12:21 WBC RBC Hgb Hct MCH RDW Plt Count Lymph % (Auto) Sampson % (Auto) Sampson # Baso # Seg Neutrophils % Seg Neuts % (Manual) Lymphocytes % (Manual) Monocytes % (Manual) Seg Neutrophils # Seg Neutrophils # Man Lymphocytes # (Manual) Monocytes # (Manual) Eosinophils # (Manual) Basophils # (Manual) PT INR APTT ABG pH ABG pO2 ABG HCO3 ABG O2 Saturation ABG Base Excess ABG Hemoglobin Oxyhemoglobin Sodium Potassium Chloride Carbon Dioxide BUN Creatinine Glucose POC Glucose 126 H 154 H 123 H Lactic Acid Calcium Ionized Calcium Phosphorus Magnesium Total Bilirubin AST ALT Alkaline Phosphatase Ammonia Total Creatine Kinase CK-MB (CK-2) CK-MB (CK-2) Rel Index Total Protein Albumin Urine WBC (Auto) Vancomycin Trough Salicylates Acetaminophen Plasma/Serum Alcohol Crossmatch 02/01/20 02/02/20 02/02/20 23:58 06:08 11:50 WBC RBC Hgb Hct MCH RDW Plt Count Lymph % (Auto) Sampson % (Auto) Sampson # Baso # Seg Neutrophils % Seg Neuts % (Manual) Lymphocytes % (Manual) Monocytes % (Manual) Seg Neutrophils # Seg Neutrophils # Man Lymphocytes # (Manual) Monocytes # (Manual) Eosinophils # (Manual) Basophils # (Manual) PT INR APTT ABG pH ABG pO2 ABG HCO3 ABG O2 Saturation ABG Base Excess ABG Hemoglobin Oxyhemoglobin Sodium Potassium Chloride Carbon Dioxide BUN Creatinine Glucose POC Glucose 125 H 144 H 131 H Lactic Acid Calcium Ionized Calcium Phosphorus Magnesium Total Bilirubin AST ALT Alkaline Phosphatase Ammonia Total Creatine Kinase CK-MB (CK-2) CK-MB (CK-2) Rel Index Total Protein Albumin Urine WBC (Auto) Vancomycin Trough Salicylates Acetaminophen Plasma/Serum Alcohol Crossmatch 02/02/20 02/03/20 02/03/20 17:53 00:14 05:47 WBC RBC Hgb Hct MCH RDW Plt Count Lymph % (Auto) Sampson % (Auto) Sampson # Baso # Seg Neutrophils % Seg Neuts % (Manual) Lymphocytes % (Manual) Monocytes % (Manual) Seg Neutrophils # Seg Neutrophils # Man Lymphocytes # (Manual) Monocytes # (Manual) Eosinophils # (Manual) Basophils # (Manual) PT INR APTT ABG pH ABG pO2 ABG HCO3 ABG O2 Saturation ABG Base Excess ABG Hemoglobin Oxyhemoglobin Sodium Potassium Chloride Carbon Dioxide BUN Creatinine Glucose POC Glucose 108 H 122 H 118 H Lactic Acid Calcium Ionized Calcium Phosphorus Magnesium Total Bilirubin AST ALT Alkaline Phosphatase Ammonia Total Creatine Kinase CK-MB (CK-2) CK-MB (CK-2) Rel Index Total Protein Albumin Urine WBC (Auto) Vancomycin Trough Salicylates Acetaminophen Plasma/Serum Alcohol Crossmatch 02/03/20 02/03/20 02/03/20 05:59 05:59 11:49 WBC RBC 3.48 L Hgb Hct 29.9 L MCH RDW 16.2 H Plt Count 707 H Lymph % (Auto) Sampson % (Auto) 9.3 H Sampson # 0.9 H Baso # Seg Neutrophils % Seg Neuts % (Manual) Lymphocytes % (Manual) Monocytes % (Manual) Seg Neutrophils # Seg Neutrophils # Man Lymphocytes # (Manual) Monocytes # (Manual) Eosinophils # (Manual) Basophils # (Manual) PT INR APTT ABG pH ABG pO2 ABG HCO3 ABG O2 Saturation ABG Base Excess ABG Hemoglobin Oxyhemoglobin Sodium 136 L Potassium Chloride 93.4 L Carbon Dioxide BUN 20 H Creatinine 0.5 L Glucose 101 H POC Glucose 133 H Lactic Acid Calcium 10.8 H Ionized Calcium Phosphorus Magnesium Total Bilirubin AST ALT Alkaline Phosphatase Ammonia Total Creatine Kinase CK-MB (CK-2) CK-MB (CK-2) Rel Index Total Protein Albumin Urine WBC (Auto) Vancomycin Trough Salicylates Acetaminophen Plasma/Serum Alcohol Crossmatch 02/03/20 02/04/20 02/04/20 23:19 05:37 23:56 WBC RBC Hgb Hct MCH RDW Plt Count Lymph % (Auto) Sampson % (Auto) Sampson # Baso # Seg Neutrophils % Seg Neuts % (Manual) Lymphocytes % (Manual) Monocytes % (Manual) Seg Neutrophils # Seg Neutrophils # Man Lymphocytes # (Manual) Monocytes # (Manual) Eosinophils # (Manual) Basophils # (Manual) PT INR APTT ABG pH ABG pO2 ABG HCO3 ABG O2 Saturation ABG Base Excess ABG Hemoglobin Oxyhemoglobin Sodium Potassium Chloride Carbon Dioxide BUN Creatinine Glucose POC Glucose 135 H 108 H 158 H Lactic Acid Calcium Ionized Calcium Phosphorus Magnesium Total Bilirubin AST ALT Alkaline Phosphatase Ammonia Total Creatine Kinase CK-MB (CK-2) CK-MB (CK-2) Rel Index Total Protein Albumin Urine WBC (Auto) Vancomycin Trough Salicylates Acetaminophen Plasma/Serum Alcohol Crossmatch 02/05/20 02/05/20 02/06/20 05:33 23:24 05:50 WBC RBC Hgb Hct MCH RDW Plt Count Lymph % (Auto) Sampson % (Auto) Sampson # Baso # Seg Neutrophils % Seg Neuts % (Manual) Lymphocytes % (Manual) Monocytes % (Manual) Seg Neutrophils # Seg Neutrophils # Man Lymphocytes # (Manual) Monocytes # (Manual) Eosinophils # (Manual) Basophils # (Manual) PT INR APTT ABG pH ABG pO2 ABG HCO3 ABG O2 Saturation ABG Base Excess ABG Hemoglobin Oxyhemoglobin Sodium Potassium Chloride Carbon Dioxide BUN Creatinine Glucose POC Glucose 152 H 158 H 110 H Lactic Acid Calcium Ionized Calcium Phosphorus Magnesium Total Bilirubin AST ALT Alkaline Phosphatase Ammonia Total Creatine Kinase CK-MB (CK-2) CK-MB (CK-2) Rel Index Total Protein Albumin Urine WBC (Auto) Vancomycin Trough Salicylates Acetaminophen Plasma/Serum Alcohol Crossmatch 02/06/20 02/07/20 02/07/20 16:03 00:13 05:27 WBC RBC Hgb Hct MCH RDW Plt Count Lymph % (Auto) Sampson % (Auto) Sampson # Baso # Seg Neutrophils % Seg Neuts % (Manual) Lymphocytes % (Manual) Monocytes % (Manual) Seg Neutrophils # Seg Neutrophils # Man Lymphocytes # (Manual) Monocytes # (Manual) Eosinophils # (Manual) Basophils # (Manual) PT INR APTT ABG pH ABG pO2 ABG HCO3 ABG O2 Saturation ABG Base Excess ABG Hemoglobin Oxyhemoglobin Sodium Potassium Chloride Carbon Dioxide BUN Creatinine Glucose POC Glucose 130 H 115 H 115 H Lactic Acid Calcium Ionized Calcium Phosphorus Magnesium Total Bilirubin AST ALT Alkaline Phosphatase Ammonia Total Creatine Kinase CK-MB (CK-2) CK-MB (CK-2) Rel Index Total Protein Albumin Urine WBC (Auto) Vancomycin Trough Salicylates Acetaminophen Plasma/Serum Alcohol Crossmatch 02/07/20 02/07/20 02/08/20 11:42 17:23 00:37 WBC RBC Hgb Hct MCH RDW Plt Count Lymph % (Auto) Sampson % (Auto) Sampson # Baso # Seg Neutrophils % Seg Neuts % (Manual) Lymphocytes % (Manual) Monocytes % (Manual) Seg Neutrophils # Seg Neutrophils # Man Lymphocytes # (Manual) Monocytes # (Manual) Eosinophils # (Manual) Basophils # (Manual) PT INR APTT ABG pH ABG pO2 ABG HCO3 ABG O2 Saturation ABG Base Excess ABG Hemoglobin Oxyhemoglobin Sodium Potassium Chloride Carbon Dioxide BUN Creatinine Glucose POC Glucose 113 H 114 H 136 H Lactic Acid Calcium Ionized Calcium Phosphorus Magnesium Total Bilirubin AST ALT Alkaline Phosphatase Ammonia Total Creatine Kinase CK-MB (CK-2) CK-MB (CK-2) Rel Index Total Protein Albumin Urine WBC (Auto) Vancomycin Trough Salicylates Acetaminophen Plasma/Serum Alcohol Crossmatch 02/08/20 08:52 WBC RBC Hgb Hct MCH RDW Plt Count Lymph % (Auto) Sampson % (Auto) Sampson # Baso # Seg Neutrophils % Seg Neuts % (Manual) Lymphocytes % (Manual) Monocytes % (Manual) Seg Neutrophils # Seg Neutrophils # Man Lymphocytes # (Manual) Monocytes # (Manual) Eosinophils # (Manual) Basophils # (Manual) PT INR APTT ABG pH ABG pO2 ABG HCO3 ABG O2 Saturation ABG Base Excess ABG Hemoglobin Oxyhemoglobin Sodium 136 L Potassium Chloride 95.7 L Carbon Dioxide BUN 21 H Creatinine 0.4 L Glucose POC Glucose Lactic Acid Calcium 10.4 H Ionized Calcium Phosphorus Magnesium Total Bilirubin AST ALT Alkaline Phosphatase Ammonia Total Creatine Kinase CK-MB (CK-2) CK-MB (CK-2) Rel Index Total Protein Albumin Urine WBC (Auto) Vancomycin Trough Salicylates Acetaminophen Plasma/Serum Alcohol Crossmatch Allied health notes reviewed: RT
--- NOTE | 2020-02-08 17:38 | Progress Note ---
Assessment and Plan - Patient Problems (1) Seizure disorder Current Visit: Yes Status: Acute Plan to address problem: No focal seizure disorder continue Keppra. Continue Keppra no new changes in management. Patient has not had any further seizures earlier in care. (2) Alcohol abuse Current Visit: Yes Status: Acute Plan to address problem: History of alcohol abuse. Patient does not have delirium tremors. Requires restraints. (3) Cardiac arrest with successful resuscitation Current Visit: Yes Status: Acute Plan to address problem: Status post cardiorespiratory arrest. . Patient had intact corneal and cough reflex and withdrew lower extremities from pain. Unlikely however any meaningful recovery after extubation. Improved responsiveness still has significant changes consistent with anoxia. No new changes. Unable to get into skilled nurse facility secondary to payer source. Patient scheduled to go to skilled nurse facility this weekend. (4) Elevated LFTs Current Visit: Yes Status: Resolved Plan to address problem: LFTs not obtained on her last blood work. Obtain LFTs for Tuesday. Likely would not make and change any outcome with patient's prognosis. (5) UTI (urinary tract infection) Current Visit: Yes Status: Acute Plan to address problem: Has been accepted to group home facility. This is been treated. (6) HTN (hypertension) Current Visit: No Status: Acute Plan to address problem: Patient continues to have optimal control blood pressure. (7) Alcohol abuse Current Visit: Yes Status: Acute (8) Acute respiratory failure Current Visit: Yes Status: Acute Plan to address problem: Patient status post intubation PEG tube. Chest clear negative for pulmonary embolism. Awaiting placement. History Interval history: Patient day is attempting to follow commands. Difficult to understand secondary to trach site. Patient will follow with as attempt to make needs known able to check her head and states she is not in pain. Scheduled for group home facility this weekend. Was problems contacting the state. That paperwork is been arranged today. Hospitalist Physical - Constitutional Vitals: Temp Pulse Resp BP Pulse Ox 98.5 F 124 H 20 143/84 100 02/08/20 11:57 02/08/20 14:01 02/08/20 14:01 02/08/20 11:57 02/08/20 14:11 General appearance: Present: no acute distress, cachectic, disheveled, other (Tracheostomy on T-piece) - EENT Eyes: Present: PERRL ENT: hearing intact, clear oral mucosa, other (Tracheostomy) - Neck Neck: Present: supple. Absent: enlarged thyroid, carotid bruits - Respiratory Respiratory: bilateral: diminished, rales - Cardiovascular Rhythm: regular - Extremities Extremities: no ischemia Extremity abnormal: edema, other (Thin atrophy) Peripheral Pulses: within normal limits - Abdominal General gastrointestinal: soft, non-distended, hypoactive bowel sounds, other (Scaphoid) - Integumentary Integumentary: Present: clear, warm, dry - Psychiatric Psychiatric: appropriate mood/affect, cooperative - Neurologic Neurologic: focal deficits HEART Score - HEART Score Troponin: Troponin T < 0.010 ng/mL (0.00-0.029) 11/22/19 23:27 Results - Labs CBC & Chem 7: 02/08/20 07:55 02/08/20 08:52 Labs: Laboratory Last Values WBC 9.3 K/mm3 (4.5-11.0) 02/03/20 05:59 RBC 3.48 M/mm3 (3.65-5.03) L 02/03/20 05:59 Hgb 10.7 gm/dl (10.1-14.3) 02/08/20 07:55 Hct 31.7 % (30.3-42.9) 02/08/20 07:55 MCV 86 fl (79-97) 02/03/20 05:59 MCH 29 pg (28-32) 02/03/20 05:59 MCHC 34 % (30-34) 02/03/20 05:59 RDW 16.2 % (13.2-15.2) H 02/03/20 05:59 Plt Count 707 K/mm3 (140-440) H 02/03/20 05:59 Lymph % (Auto) 20.2 % (13.4-35.0) 02/03/20 05:59 [place] % (Auto) 9.3 % (0.0-7.3) H 02/03/20 05:59 Eos % (Auto) 2.5 % (0.0-4.3) 02/03/20 05:59 Baso % (Auto) 0.6 % (0.0-1.8) 02/03/20 05:59 Lymph # 1.9 K/mm3 (1.2-5.4) 02/03/20 05:59 [place] # 0.9 K/mm3 (0.0-0.8) H 02/03/20 05:59 Eos # 0.2 K/mm3 (0.0-0.4) 02/03/20 05:59 Baso # 0.1 K/mm3 (0.0-0.1) 02/03/20 05:59 Add Manual Diff Complete 12/25/19 03:47 Total Counted 200 12/25/19 03:47 Seg Neutrophils % 67.4 % (40.0-70.0) 02/03/20 05:59 Seg Neuts % (Manual) 97.5 % (40.0-70.0) H 12/25/19 03:47 Band Neutrophils % 0 % 12/25/19 03:47 Lymphocytes % (Manual) 1.0 % (13.4-35.0) L 12/25/19 03:47 Reactive Lymphs % (Man) 0 % 12/25/19 03:47 Monocytes % (Manual) 1.5 % (0.0-7.3) 12/25/19 03:47 Eosinophils % (Manual) 0 % (0.0-4.3) 12/25/19 03:47 Basophils % (Manual) 0 % (0.0-1.8) 12/25/19 03:47 Metamyelocytes % 0 % 12/25/19 03:47 Myelocytes % 0 % 12/25/19 03:47 Promyelocytes % 0 % 12/25/19 03:47 Blast Cells % 0 % 12/25/19 03:47 Nucleated RBC % Not Reportable 12/25/19 03:47 Seg Neutrophils # 6.3 K/mm3 (1.8-7.7) 02/03/20 05:59 Seg Neutrophils # Man 35.3 K/mm3 (1.8-7.7) H 12/25/19 03:47 Band Neutrophils # 0.0 K/mm3 12/25/19 03:47 Lymphocytes # (Manual) 0.4 K/mm3 (1.2-5.4) L 12/25/19 03:47 Abs React Lymphs (Man) 0.0 K/mm3 12/25/19 03:47 Monocytes # (Manual) 0.5 K/mm3 (0.0-0.8) 12/25/19 03:47 Eosinophils # (Manual) 0.0 K/mm3 (0.0-0.4) 12/25/19 03:47 Basophils # (Manual) 0.0 K/mm3 (0.0-0.1) 12/25/19 03:47 Metamyelocytes # 0.0 K/mm3 12/25/19 03:47 Myelocytes # 0.0 K/mm3 12/25/19 03:47 Promyelocytes # 0.0 K/mm3 12/25/19 03:47 Blast Cells # 0.0 K/mm3 12/25/19 03:47 Pathologist Review 12/13/19 07:48 WBC Morphology Not Reportable 12/25/19 03:47 Hypersegmented Neuts Not Reportable 12/25/19 03:47 Hyposegmented Neuts Not Reportable 12/25/19 03:47 Hypogranular Neuts Not Reportable 12/25/19 03:47 Smudge Cells Not Reportable 12/25/19 03:47 Toxic Granulation Not Reportable 12/25/19 03:47 Toxic Vacuolation Not Reportable 12/25/19 03:47 Dohle Bodies Not Reportable 12/25/19 03:47 Pelger-Huet Anomaly Not Reportable 12/25/19 03:47 Dominique Rods Not Reportable 12/25/19 03:47 Platelet Estimate Consistent w auto 12/25/19 03:47 Clumped Platelets Not Reportable 12/25/19 03:47 Plt Clumps, EDTA Not Reportable 12/25/19 03:47 Large Platelets Not Reportable 12/25/19 03:47 Giant Platelets Not Reportable 12/25/19 03:47 Platelet Satelliting Not Reportable 12/25/19 03:47 Plt Morphology Comment Not Reportable 12/25/19 03:47 RBC Morphology Not Reportable 12/25/19 03:47 Dimorphic RBCs Not Reportable 12/25/19 03:47 Polychromasia Not Reportable 12/25/19 03:47 Hypochromasia Not Reportable 12/25/19 03:47 Poikilocytosis Not Reportable 12/25/19 03:47 Anisocytosis 1+ 12/25/19 03:47 Microcytosis Not Reportable 12/25/19 03:47 Macrocytosis Not Reportable 12/25/19 03:47 Spherocytes Not Reportable 12/25/19 03:47 Pappenheimer Bodies Not Reportable 12/25/19 03:47 Sickle Cells Not Reportable 12/25/19 03:47 Target Cells Not Reportable 12/25/19 03:47 Tear Drop Cells Not Reportable 12/25/19 03:47 Ovalocytes Not Reportable 12/25/19 03:47 Helmet Cells Not Reportable 12/25/19 03:47 Frias-Selman Bodies Not Reportable 12/25/19 03:47 [place] Rings Not Reportable 12/25/19 03:47 Jamshid Cells Not Reportable 12/25/19 03:47 Bite Cells Not Reportable 12/25/19 03:47 Crenated Cell Not Reportable 12/25/19 03:47 Elliptocytes Not Reportable 12/25/19 03:47 Acanthocytes (Spur) Not Reportable 12/25/19 03:47 Rouleaux Not Reportable 12/25/19 03:47 Hemoglobin C Crystals Not Reportable 12/25/19 03:47 Schistocytes Not Reportable 12/25/19 03:47 Malaria parasites Not Reportable 12/25/19 03:47 Gregg Bodies Not Reportable 12/25/19 03:47 Hem Pathologist Commnt No 12/25/19 03:47 PT 17.0 Sec. (12.2-14.9) H 11/23/19 03:47 INR 1.36 (0.87-1.13) H 11/23/19 03:47 APTT 128.2 Sec. (24.2-36.6) H* 11/23/19 03:47 Heparin Anti-Xa Level 0.31 U.I./ml (0.3-0.7) 11/23/19 09:03 ABG pH 7.429 pH Units (7.350-7.450) 01/09/20 08:51 ABG pCO2 39.1 mm Hg 01/09/20 08:51 ABG pO2 94.3 mm Hg (80.0-90.0) H 01/09/20 08:51 ABG HCO3 25.3 mmol/L (20.0-26.0) 01/09/20 08:51 ABG O2 Saturation 97.4 % (95.0-99.0) 01/09/20 08:51 ABG O2 Content 12.9 (0.0-44) 01/09/20 08:51 ABG Base Excess 1.0 mmol/L (-2.0-3.0) 01/09/20 08:51 ABG Hemoglobin 9.5 gm/dl (12.0-16.0) L 01/09/20 08:51 ABG Carboxyhemoglobin 1.3 % (0.0-5.0) 01/09/20 08:51 ABG Methemoglobin 0.4 % (0.0-1.5) 01/09/20 08:51 Oxyhemoglobin 95.7 % (95.0-99.0) 01/09/20 08:51 FiO2 35 % 01/09/20 08:51 Sodium 136 mmol/L (137-145) L 02/08/20 08:52 Potassium 4.3 mmol/L (3.6-5.0) 02/08/20 08:52 Chloride 95.7 mmol/L (98-107) L 02/08/20 08:52 Carbon Dioxide 27 mmol/L (22-30) 02/08/20 08:52 Anion Gap 18 mmol/L 02/08/20 08:52 BUN 21 mg/dL (7-17) H 02/08/20 08:52 Creatinine 0.4 mg/dL (0.7-1.2) L 02/08/20 08:52 Estimated GFR > 60 ml/min 02/08/20 08:52 BUN/Creatinine Ratio 53 % 02/08/20 08:52 Glucose 99 mg/dL (65-100) 02/08/20 08:52 POC Glucose 145 (70-105) H 02/08/20 17:02 Lactic Acid 1.80 mmol/L (0.7-2.0) 11/25/19 05:05 Calcium 10.4 mg/dL (8.4-10.2) H 02/08/20 08:52 Ionized Calcium 4.5 mg/dL (4.8-5.6) L 11/23/19 06:32 Phosphorus 4.20 mg/dL (2.5-4.5) D 11/28/19 08:59 Magnesium 2.30 mg/dL (1.7-2.3) 11/29/19 13:41 Total Bilirubin 0.40 mg/dL (0.1-1.2) 12/13/19 07:48 AST 27 units/L (5-40) 12/13/19 07:48 ALT 26 units/L (7-56) 12/13/19 07:48 Alkaline Phosphatase 316 units/L (35-129) H 12/13/19 07:48 Ammonia 42.0 umol/L (25-60) 11/29/19 13:41 Total Creatine Kinase 139 units/L (30-135) H 11/22/19 23:27 CK-MB (CK-2) 8.3 ng/mL (0.0-4.0) H 11/22/19 23:27 CK-MB (CK-2) Rel Index 5.9 (0-4) H 11/22/19 23:27 Troponin T < 0.010 ng/mL (0.00-0.029) 11/22/19 23:27 Total Protein 6.8 g/dL (6.3-8.2) 12/13/19 07:48 Albumin 2.4 g/dL (3.9-5) L 12/13/19 07:48 Albumin/Globulin Ratio 0.5 % 12/13/19 07:48 Lipase 18 units/L (13-60) 11/23/19 00:34 Procalcitonin 1.09 ng/mL (<0.15) 11/23/19 04:53 Urine Color Yellow (Yellow) 12/16/19 Unknown Urine Turbidity Slightly-cloudy (Clear) 12/16/19 Unknown Urine pH 5.0 (5.0-7.0) 12/16/19 Unknown Ur Specific [place] 1.018 (1.003-1.030) 12/16/19 Unknown Urine Protein 30 mg/dl mg/dL (Negative) 12/16/19 Unknown Urine Glucose (UA) Neg mg/dL (Negative) 12/16/19 Unknown Urine Ketones Neg mg/dL (Negative) 12/16/19 Unknown Urine Blood Sm (Negative) 12/16/19 Unknown Urine Nitrite Neg (Negative) 12/16/19 Unknown Urine Bilirubin Neg (Negative) 12/16/19 Unknown Urine Urobilinogen < 2.0 mg/dL (<2.0) 12/16/19 Unknown Ur Leukocyte Esterase Neg (Negative) 12/16/19 Unknown Urine WBC (Auto) 6.0 /HPF (0.0-6.0) 12/16/19 Unknown Urine RBC (Auto) 9.0 /HPF (0.0-6.0) 12/16/19 Unknown U Epithel Cells (Auto) < 1.0 /HPF (0-13.0) 12/16/19 Unknown Urine Bacteria (Auto) 2+ /HPF (Negative) 11/22/19 23:17 Hyaline Casts 3 /LPF 12/16/19 Unknown Granular Casts 3 /LPF 12/16/19 Unknown Urine Mucus Few /HPF 12/16/19 Unknown Vancomycin Trough 33.8 ug/mL (5.0-20.0) H 12/21/19 08:56 Random Vancomycin 16.2 ug/mL (0-40.0) 12/24/19 04:31 Salicylates < 0.3 mg/dL (2.8-20.0) L 11/22/19 23:27 Urine Opiates Screen Presumptive negative 11/22/19 23:17 Urine Methadone Screen Presumptive negative 11/22/19 23:17 Acetaminophen < 5.0 ug/mL (10.0-30.0) L 11/22/19 23:27 Ur Barbiturates Screen Presumptive negative 11/22/19 23:17 Ur Phencyclidine Scrn Presumptive negative 11/22/19 23:17 Ur Amphetamines Screen Presumptive negative 11/22/19 23:17 U Benzodiazepines Scrn Presumptive negative 11/22/19 23:17 Urine Cocaine Screen Presumptive negative 11/22/19 23:17 U Marijuana (THC) Screen Presumptive negative 11/22/19 23:17 Drugs of Abuse Note Disclamer 11/22/19 23:17 Plasma/Serum Alcohol 0.08 % (0-0.07) H 11/22/19 23:27 Coronavirus (PCR) Negative (Negative) 02/05/20 07:50 Hepatitis A IgM Ab Non-reactive (NonReactive) 11/23/19 01:19 Hep Bs Antigen Non-reactive (Negative) 11/23/19 01:19 Hep B Core IgM Ab Non-reactive (NonReactive) 11/23/19 01:19 Hepatitis C Antibody Non-reactive (NonReactive) 11/23/19 01:19 Blood Type O POSITIVE 12/21/19 14:54 Antibody Screen Negative 12/21/19 14:54 Crossmatch See Detail 12/21/19 14:54 - Diagnostic Impressions Diagnostic Impressions: Echocardiogram 11/23/19 03:58 Transthoracic Echocardiogram Indication: Cardiac arrest BP: 131/89 HR: 115 Conclusions *The study quality is technically difficult. *Global left ventricular wall motion and contractility are within normal limits. *The estimated ejection fraction is 55-60%. *Abnormal left ventricular diastolic filling is observed, consistent with impaired relaxation. *There is no pericardial effusion. Findings Procedure Info: The study quality is technically difficult. The study was technically limited due to the patient's inability to lay in the left lateral decubitus position. Left Ventricle: The left ventricular chamber size is normal. There is no left ventricular hypertrophy. Global left ventricular wall motion and contractility are within normal limits. Global left ventricular systolic function is normal. The estimated ejection fraction is 55-60%. Abnormal left ventricular diastolic filling is observed, consistent with impaired relaxation. Left Atrium: The left atrial chamber size is normal. Aortic Valve: The aortic valve leaflets are mildly thickened. Mitral Valve: The mitral valve leaflets are mildly thickened. There is no evidence of mitral regurgitation. Tricuspid Valve: The tricuspid valve leaflets are normal. There is trace tricuspid regurgitation. The right ventricular systolic pressure is calculated at 33 mmHg. Pulmonic Valve: The pulmonic valve appears normal. Pericardium: The pericardium appears normal. There is no pericardial effusion. Aorta: The aorta appears normal. Venous: The inferior vena cava appears normal in size. Measurements Chambers 2D Name Value Normal Range IVSd (2D) 0.94 cm (0.6 - 1.1) LVPWd (2D) 0.81 cm (0.6 - 1.1) LVIDd (2D) 3.6 cm (3.7 - 5.6) LVIDs (2D) 2.27 cm (2 - 3.8) LV FS (2D) 36.93 % - EF Teichholz (2D) 67.76 % - Ao root diameter (2D) 3.03 cm (2 - 3.7) Volumes/Mass Name Value Normal Range LA ESV SP 4CH (A/L) 16.89 ml - LA ESV SP 4CH (MOD) 15.52 ml - Diastolic/Systolic Function Name Value Normal Range MV E-wave Vmax 0.55 m/sec - MV deceleration time 200.89 msec - MV A-wave Vmax 0.68 m/sec - MV E:A ratio 0.82 ratio - Aortic Valve Name Value Normal Range AV Vmax 1.1 m/sec - AV VTI 15.9 cm - AV peak gradient 4.86 mmHg - AV mean gradient 2.59 mmHg - LVOT diameter 2 cm - LVOT Vmax 1.03 m/sec - LVOT VTI 15.87 cm - LVOT peak gradient 4.24 mmHg - LVOT mean gradient 2.41 mmHg - SV LVOT 49.77 ml - JOSÉ MIGUEL (continuity Vmax) 2.93 cm2 - JOSÉ MIGUEL (continuity VTI) 3.13 cm2 - Tricuspid Valve Name Value Normal Range TR Vmax 2.74 m/sec - TR peak gradient 303 mmHg - RAP 3 mmHg - RVSP 33 mmHg - IVC diameter 1.77 cm (1.2 - 2.3) Pulmonic Valve/Qp:Qs Name Value Normal Range PV Vmax 0.77 m/sec - PV peak gradient 2.4 mmHg - PV acceleration time 114.18 msec - Echocardiogram Limited Views 12/17/19 14:53 Transthoracic Echocardiogram Indication: R/O Vegetations BP: 144/83 HR: 133 Conclusions *Global left ventricular systolic function is mildly decreased. *The estimated ejection fraction is 45-50%. *A trivial pericardial effusion is visualized. Findings Left Ventricle: The left ventricular chamber size is normal. Global left ventricular systolic function is mildly decreased. The estimated ejection fraction is 45-50%. Left Atrium: The left atrial chamber size is normal. Right Ventricle: The right ventricular cavity size is normal. Right Atrium: The right atrial cavity size is normal. Aortic Valve: The aortic valve is not well visualized. There is no evidence of aortic regurgitation. Mitral Valve: The mitral valve leaflets are mildly thickened. There is trace of mitral regurgitation. Tricuspid Valve: The tricuspid valve leaflets are mildly thickened. There is trace tricuspid regurgitation. The right ventricular systolic pressure is calculated at 29 mmHg. Pulmonic Valve: The pulmonic valve is not well visualized. There is no evidence of pulmonic regurgitation. Pericardium: A trivial pericardial effusion is visualized. Aorta: There is no dilatation of the ascending aorta. There is no dilatation of the aortic root. Venous: The inferior vena cava appears normal in size. There is a greater than 50% respiratory change in the inferior vena cava dimension. Measurements Chambers 2D Name Value Normal Range IVSd (2D) 0.83 cm (0.6 - 1.1) LVPWd (2D) 0.98 cm (0.6 - 1.1) LVIDd (2D) 3.71 cm (3.7 - 5.6) LVIDs (2D) 2.93 cm (2 - 3.8) LV FS (2D) 21.12 % - EF Teichholz (2D) 43.71 % - Ao root diameter (2D) 3.02 cm (2 - 3.7) Volumes/Mass Name Value Normal Range LA ESV SP 4CH (A/L) 36.8 ml - LA ESV SP 2CH (A/L) 45.89 ml - LA ESV BP (A/L) 42.35 ml - LA ESV BP (A/L) index 26.63 ml/m2 - LA ESV SP 4CH (MOD) 34.42 ml - LA ESV SP 2CH (MOD) 44.21 ml - LA ESV BP (MOD) 39.82 ml - LA ESV BP (MOD) index 25.05 ml/m2 - Aortic Valve Name Value Normal Range LVOT diameter 1.63 cm - Tricuspid Valve Name Value Normal Range TR Vmax 2.56 m/sec - TR peak gradient 26 mmHg - RAP 3 mmHg - RVSP 29 mmHg - IVC diameter 1.83 cm (1.2 - 2.3) [place]/IV: Voiding Method Incontinent IV Catheter Type [Forearm] Peripheral IV IV Catheter Type [Left Forearm INT / Saline Lock ] IV Catheter Type [Right Peripheral IV Antecubital] IV Catheter Type [Right Hand] Peripheral IV IV Catheter Type [Right Wrist] Peripheral IV IV Catheter Type [Left Wrist] Peripheral IV IV Catheter Type [Left Peripheral IV Antecubital] IV Catheter Type [Right INT / Saline Lock Forearm] IV Catheter Type [Left Hand] Peripheral IV Active Medications - Current Medications Current Medications: Generic Name Dose Route Start Last Admin Trade Name Freq PRN Reason Stop Dose Admin Acetaminophen 650 mg 12/06/19 10:25 02/05/20 22:07 Tylenol FEEDTUBE 650 mg Q6H PRN Administration TEMP >/=100.3 Acetylcysteine 200 mg 02/08/20 16:00 Mucomyst Inhalation INHALATION 02/11/20 15:59 Q8HRT [facility] Lipase/Protease/Amylase 1 each 11/23/19 11:[address] 10,500 Unit FEEDTUBE PRN PRN Use w/ sod bicarb for FT Bisacodyl 10 mg 02/06/20 13:57 Dulcolax IA QDAY PRN Constipation unrelieved by MOM Docusate Sodium 100 mg 02/06/20 22:00 02/08/20 12:44 Colace PO Not Given BID [facility] Glycopyrrolate 2 mg 12/31/19 20:00 02/08/20 15:10 Robinul PO 2 mg TID LUCHO Administration Hydralazine HCl 10 mg 11/24/19 00:45 12/18/19 13:25 Apresoline IV 10 mg Q6H PRN Administration SBP > 160 Hydroxyzine Pamoate 25 mg 12/06/19 10:00 02/08/20 09:39 Vistaril PO 25 mg BID LUCHO Administration Lansoprazole 30 mg 11/27/19 10:00 02/08/20 09:40 Prevacid Solutab FEEDTUBE 30 mg QDAY LUCHO Administration Levalbuterol HCl 0.63 mg 01/24/20 14:00 02/08/20 14:01 Xopenex IH 0.63 mg Q6HRT LUCHO Administration Levetiracetam 500 mg 11/29/19 10:00 02/08/20 09:41 Keppra PO 500 mg BID LUCHO Administration Mirtazapine 30 mg 12/06/19 10:00 02/08/20 09:54 Remeron PO 30 mg DAILY [facility] Administration Ondansetron HCl 4 mg 12/10/19 07:53 02/05/20 22:06 Zofran IV 4 mg Q4H PRN Administration Nausea And Vomiting Polyethylene Glycol 17 gm 02/06/20 13:57 Miralax 3350 PO QDAY PRN Constipation Quetiapine Fumarate 100 mg 01/09/20 21:41 02/07/20 22:10 Seroquel FEEDTUBE 100 mg QHS LUCHO Administration Scopolamine 1 each 02/08/20 15:00 Transderm-Scop TD Q3D [facility] Sertraline HCl 25 mg 01/01/20 10:00 02/08/20 09:40 Zoloft PO 25 mg QDAY LUCHO Administration Simple Syrup 15 ml 11/23/19 11:50 Simple Syrup FEEDTUBE PRN PRN Hypoglycemia BG<70 Simple Syrup 30 ml 11/23/19 11:50 Simple Syrup FEEDTUBE PRN PRN Hypoglycemia Sodium Bicarbonate 325 mg 11/23/19 11:50 Sodium Bicarbonate FEEDTUBE PRN PRN For Clogged Feeding Tube Tamsulosin HCl 0.4 mg 12/14/19 13:00 02/08/20 12:44 Flomax PO Not Given QDAY LUCHO Nutrition/Malnutrition Assess - Dietary Evaluation Nutrition/Malnutrition Findings: Nutrition Notes Start: 11/23/19 11:29 Freq: Status: Active Protocol: Document 02/07/20 12:02 LM (Rec: 02/07/20 12:13 LM [id number]) Nutrition Notes Initial or Follow up Reassessment Current Diagnosis Hypertension Other Pertinent Diagnosis Cardaic arrest, ETOH dependence, UTI Current Diet Jevity 1.2 at 55ml/hr Labs/Tests Reviewed Pertinent Medications Reviewed Height 5 ft 6 in Weight 49.6 kg [place] Body Weight (kg) 59.09 BMI 17.6 Subjective/Other Information Per RN notes TF running at goal. Wt continues to drop. Will increase TF rate. Percent of energy/protein needs met: 86%/100% Burn Absent Trauma Absent GI Symptoms None Current % PO Negligible Minimum of two criteria Yes Interpretation of Weight Loss (severe) >2% in 1 week Muscle Mass Mild Depletion (non-severe) #2 Nutrition Diagnosis Malnutrition Diagnosis Progress(for reassessment Continues documentation) #1 Nutrition Diagnosis Inadequate oral intake Diagnosis Progress(for reassessment Continues documentation) Is patient on ventilator? No Is Patient Ambulatory and/or Out of Bed No REE-([facility]-confined to bed) 1339.884 Kcal/Kg value to use for calculation 37 Approximate Energy Requirements Using 1835 kcal/Kg Calculation Used for Recommendations Kcal/kg Additional Notes Protein: 60-75g (1.2-1.5g/kg) Fluid: 1 ml/kcal Nutrition Intervention Change Diet Order: Continue TF Nutrition Support: Change to Jevity 1.2 at 60ml/ hr Flush 100ml q4h Kcal 1,728 Protein (gm) 80 Fluid (mL) 1,162 Goal #1 TF tolerance Goal #2 Meet at least 80% of energy and protein needs via TF Anticipated Discharge Needs: TF Follow-Up By: 02/12/20 Additional Comments F/U for TF tolerance, wt
[2020-02-08] MEDS: SCOPOLAMINE TRANSDERMAL PATCH 72 HR TD SCH (18:11)
[2020-02-08] MEDS: ACETYLCYSTEINE 20% 200 MG/1 ML *FOR INHALATION USE INHALATION SCH ×2 (18:38→21:32)
[2020-02-08] MEDS: QUEtiapine 100 MG TAB FEEDTUBE SCH (22:21)
[2020-02-09] MEDS: ACETYLCYSTEINE 20% 200 MG/1 ML *FOR INHALATION USE INHALATION SCH ×3 (00:08→20:24)
[2020-02-09] MEDS: LEVALBUTEROL 0.63 MG/3 ML NEBU IH SCH ×4 (02:19→20:24)
[2020-02-09] MEDS: GLYCOPYRROLATE 1 MG TAB PO SCH ×3 (09:10→21:23)
[2020-02-09] MEDS: hydrOXYzine PAMOATE 25 MG CAP PO SCH ×2 (09:11→21:23)
[2020-02-09] MEDS: SERTRALINE 50 MG TAB PO SCH (09:11)
[2020-02-09] MEDS: LANSOPRAZOLE 30 MG SOLUTAB FEEDTUBE SCH (09:11)
[2020-02-09] MEDS: levETIRAcetam 500 MG/5 ML ORAL LIQD PO SCH ×2 (09:11→21:23)
[2020-02-09] MEDS: TAMSULOSIN 0.4 MG CAP PO SCH (09:11)
[2020-02-09] MEDS: MIRTAZAPINE 30 MG TAB PO SCH (09:11)
[2020-02-09] MEDS: DOCUSATE SODIUM 100 MG CAP PO SCH ×2 (09:37→21:24)
--- NOTE | 2020-02-09 10:01 | Progress Note ---
Assessment and Plan Acute cardiopulmonary arrest with ROSC Acute hypoxemic respiratory failure s/p MVS s/p Tracheostomy Oropharyngeal dysphagia s/p PEG MRSA Bacteremia- treated MRSA pneumonia-treated Acute oahhpwweb-[id number]-[id number] encephalopathy Metabolic acidosis/alcoholic acidosis/Lactic acidosis( resolved) Ischemic hepatitis Erythrocytosis Tobacco use disorder Alcohol use Disorder Continue all current care as documented below Discharge planning -CBC, BMP prn -Replace and correct electrolytes as indicated -Trach care, airway clearance, secretion management(continue scopolamine patch and Robinul) -CXR, ABG prn -Weaning trials as tolerated- PMV and possible capping as tolerated -Continue contact isolation for MRSA -Trend WCC and temperature curve -PT/OT -Supportive transfusions as indicated for HgB <7g/dL -Continue aspiration precautions, HOB>40 -Continue enteric nutritional support at goal rate. -Continue to monitor glycemic control, with target blood glucose 140-180 mg/dL while critically ill. -Avoid hypoglycemia - Continue to wean supplemental oxygen for target O2 sat's > 90% -Continue thiamine, multivitamin and electrolyte replacement -Continue to avoid nephrotoxins, adjust all medications for GFR and CrCL - Continue bronchodilators with pulmonary hygiene - Continue to maintain of sleep-wake cycle, avoid delirium - Continue mobility protocol and skin assessment per protocol for pressure ulcer prevention - Continue to monitor for clinical seizures - continue other care per attending / other consultants CONDITION: FAIR PROGNOSIS: FAIR CODE STATUS: DNAR Subjective Date of service: 02/09/20 Principal diagnosis: Ac cardiopulmonary arrest; Ac hypoxemic resp failure; Acute encephalopathy Interval history: Patient is seen today for: Acute cardiopulmonary arrest with ROSC; Acute hypoxemic respiratory failure; Acute metabolic-toxic encephalopathy; Ischemic hepatitis; Leucocytosis with lactic acidosis; Tobacco use disorder; Alcohol use Disorder; s/p tracheostomy; s/p PEG Seen and examined at bedside; 24hour events reviewed; nursing and respiratory care staff consulted; no adverse overnight events reported to me; resting peacefully in bed; continues to tolerate PMV/capping trials, secretions are improving with the resumption of Scopolamine adn Robinul No fevers, no vomiting, continues to tolerate tube feedings Awake and alert, responsive No new issues Objective Vital Signs - 12hr 02/09/20 02/09/20 02/09/20 00:00 00:43 02:00 Temperature 97.6 F Pulse Rate 99 H 110 H Pulse Rate [ 115 H Posterior Bilateral Throughout] Respiratory 20 Rate Respiratory 20 Rate [Posterior Bilateral Throughout] Blood Pressure 130/83 O2 Sat by Pulse 98 Oximetry O2 Sat by Pulse Oximetry [ Assessment] 02/09/20 02/09/20 02/09/20 02:28 04:50 08:00 Temperature 97.9 F 98.0 F Pulse Rate 104 H Pulse Rate [ Posterior Bilateral Throughout] Respiratory 20 18 Rate Respiratory Rate [Posterior Bilateral Throughout] Blood Pressure 118/76 120/81 O2 Sat by Pulse 100 Oximetry O2 Sat by Pulse 98 Oximetry [ Assessment] 02/09/20 08:29 Temperature Pulse Rate Pulse Rate [ Posterior Bilateral Throughout] Respiratory 20 Rate Respiratory Rate [Posterior Bilateral Throughout] Blood Pressure O2 Sat by Pulse Oximetry O2 Sat by Pulse Oximetry [ Assessment] Constitutional: no acute distress, other (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, with midline tracheostomy and with normal respiratory effort at rest) Eyes: non-icteric ENT: oropharynx moist, other (s/p trach) Neck: supple, no lymphadenopathy, no JVD Effort: normal Ascultation: Bilateral: diminished breath sounds, rhonchi Percussion: Bilateral: not dull Cardiovascular: regular rate and rhythm (tachycardia), other (S1,S2) Gastrointestinal: normoactive bowel sounds, soft, non-tender, non-distended Integumentary: normal Extremities: no cyanosis, no edema, pulses normal, no ischemia or petechiae Neurologic: normal mental status, non-focal exam, pupils equal and round Psychiatric: mood appropriate, affect normal CBC and BMP: 02/08/20 07:55 02/08/20 08:52 ABG, PT/INR, D-dimer: ABG ABG pH 7.429 pH Units (7.350-7.450) 01/09/20 08:51 ABG pCO2 39.1 mm Hg 01/09/20 08:51 ABG pO2 94.3 mm Hg (80.0-90.0) H 01/09/20 08:51 ABG O2 Saturation 97.4 % (95.0-99.0) 01/09/20 08:51 PT/INR, D-dimer PT 17.0 Sec. (12.2-14.9) H 11/23/19 03:47 INR 1.36 (0.87-1.13) H 11/23/19 03:47 Abnormal lab findings: Abnormal Labs 11/22/19 11/22/19 11/22/19 23:17 23:18 23:27 WBC 21.2 H RBC 3.59 L Hgb 9.8 L Hct MCH 27 L RDW 18.6 H Plt Count 454 H Lymph % (Auto) [place] % (Auto) [place] # Baso # Seg Neutrophils % Seg Neuts % (Manual) 86.0 H Lymphocytes % (Manual) 9.0 L Monocytes % (Manual) Seg Neutrophils # Seg Neutrophils # Man 18.2 H Lymphocytes # (Manual) Monocytes # (Manual) 1.1 H Eosinophils # (Manual) Basophils # (Manual) PT INR APTT ABG pH ABG pO2 ABG HCO3 ABG O2 Saturation ABG Base Excess ABG Hemoglobin Oxyhemoglobin Sodium Potassium Chloride Carbon Dioxide BUN Creatinine Glucose POC Glucose 53 L Lactic Acid Calcium Ionized Calcium Phosphorus Magnesium Total Bilirubin AST ALT Alkaline Phosphatase Ammonia Total Creatine Kinase CK-MB (CK-2) CK-MB (CK-2) Rel Index Total Protein Albumin Urine WBC (Auto) 40.0 H Vancomycin Trough Salicylates Acetaminophen Plasma/Serum Alcohol Crossmatch 11/22/19 11/22/19 11/22/19 23:27 23:27 23:27 WBC RBC Hgb Hct MCH RDW Plt Count Lymph % (Auto) [place] % (Auto) [place] # Baso # Seg Neutrophils % Seg Neuts % (Manual) Lymphocytes % (Manual) Monocytes % (Manual) Seg Neutrophils # Seg Neutrophils # Man Lymphocytes # (Manual) Monocytes # (Manual) Eosinophils # (Manual) Basophils # (Manual) PT INR APTT ABG pH ABG pO2 ABG HCO3 ABG O2 Saturation ABG Base Excess ABG Hemoglobin Oxyhemoglobin Sodium Potassium 2.4 L* Chloride 85.1 L Carbon Dioxide 19 L BUN Creatinine 0.5 L Glucose 261 H POC Glucose Lactic Acid Calcium Ionized Calcium Phosphorus Magnesium Total Bilirubin AST 609 H ALT 152 H Alkaline Phosphatase 160 H Ammonia 117.0 H Total Creatine Kinase 139 H CK-MB (CK-2) 8.3 H CK-MB (CK-2) Rel Index 5.9 H Total Protein Albumin 3.6 L Urine WBC (Auto) Vancomycin Trough Salicylates < 0.3 L Acetaminophen Plasma/Serum Alcohol Crossmatch 11/22/19 11/22/19 11/23/19 23:27 23:27 01:10 WBC RBC Hgb Hct MCH RDW Plt Count Lymph % (Auto) [place] % (Auto) [place] # Baso # Seg Neutrophils % Seg Neuts % (Manual) Lymphocytes % (Manual) Monocytes % (Manual) Seg Neutrophils # Seg Neutrophils # Man Lymphocytes # (Manual) Monocytes # (Manual) Eosinophils # (Manual) Basophils # (Manual) PT INR APTT ABG pH 7.273 L ABG pO2 209.7 H ABG HCO3 ABG O2 Saturation 99.2 H ABG Base Excess -3.9 L ABG Hemoglobin 10.6 L Oxyhemoglobin 93.9 L Sodium Potassium Chloride Carbon Dioxide BUN Creatinine Glucose POC Glucose Lactic Acid Calcium Ionized Calcium Phosphorus Magnesium Total Bilirubin AST ALT Alkaline Phosphatase Ammonia Total Creatine Kinase CK-MB (CK-2) CK-MB (CK-2) Rel Index Total Protein Albumin Urine WBC (Auto) Vancomycin Trough Salicylates Acetaminophen < 5.0 L Plasma/Serum Alcohol 0.08 H Crossmatch 11/23/19 11/23/19 11/23/19 01:19 01:19 03:47 WBC RBC Hgb Hct MCH RDW Plt Count Lymph % (Auto) [place] % (Auto) [place] # Baso # Seg Neutrophils % Seg Neuts % (Manual) Lymphocytes % (Manual) Monocytes % (Manual) Seg Neutrophils # Seg Neutrophils # Man Lymphocytes # (Manual) Monocytes # (Manual) Eosinophils # (Manual) Basophils # (Manual) PT 16.3 H INR 1.29 H APTT ABG pH ABG pO2 ABG HCO3 ABG O2 Saturation ABG Base Excess ABG Hemoglobin Oxyhemoglobin Sodium Potassium Chloride Carbon Dioxide BUN Creatinine Glucose POC Glucose Lactic Acid 2.10 H* 5.00 H* Calcium Ionized Calcium Phosphorus Magnesium Total Bilirubin AST ALT Alkaline Phosphatase Ammonia Total Creatine Kinase CK-MB (CK-2) CK-MB (CK-2) Rel Index Total Protein Albumin Urine WBC (Auto) Vancomycin Trough Salicylates Acetaminophen Plasma/Serum Alcohol Crossmatch 11/23/19 11/23/19 11/23/19 03:47 03:47 04:53 WBC RBC Hgb 9.4 L Hct MCH RDW Plt Count Lymph % (Auto) [place] % (Auto) [place] # Baso # Seg Neutrophils % Seg Neuts % (Manual) Lymphocytes % (Manual) Monocytes % (Manual) Seg Neutrophils # Seg Neutrophils # Man Lymphocytes # (Manual) Monocytes # (Manual) Eosinophils # (Manual) Basophils # (Manual) PT 17.0 H INR 1.36 H APTT 128.2 H* ABG pH ABG pO2 ABG HCO3 ABG O2 Saturation ABG Base Excess ABG Hemoglobin Oxyhemoglobin Sodium Potassium Chloride Carbon Dioxide 18 L BUN Creatinine 0.5 L Glucose 105 H POC Glucose Lactic Acid Calcium 8.3 L Ionized Calcium Phosphorus 2.40 L Magnesium Total Bilirubin 1.30 H AST 761 H ALT 158 H Alkaline Phosphatase 143 H Ammonia Total Creatine Kinase CK-MB (CK-2) CK-MB (CK-2) Rel Index Total Protein Albumin 2.8 L Urine WBC (Auto) Vancomycin Trough Salicylates Acetaminophen Plasma/Serum Alcohol Crossmatch 11/23/19 11/23/19 11/23/19 05:12 06:32 06:32 WBC 16.8 H RBC 3.31 L Hgb 8.9 L Hct 28.7 L MCH 27 L RDW 18.6 H Plt Count Lymph % (Auto) [place] % (Auto) [place] # Baso # Seg Neutrophils % Seg Neuts % (Manual) 94.0 H Lymphocytes % (Manual) 1.0 L Monocytes % (Manual) Seg Neutrophils # Seg Neutrophils # Man 15.8 H Lymphocytes # (Manual) 0.2 L Monocytes # (Manual) Eosinophils # (Manual) Basophils # (Manual) PT INR APTT ABG pH ABG pO2 ABG HCO3 ABG O2 Saturation ABG Base Excess -3.2 L ABG Hemoglobin 9.0 L Oxyhemoglobin 93.6 L Sodium Potassium Chloride Carbon Dioxide BUN Creatinine Glucose POC Glucose Lactic Acid Calcium Ionized Calcium 4.5 L Phosphorus Magnesium Total Bilirubin AST ALT Alkaline Phosphatase Ammonia Total Creatine Kinase CK-MB (CK-2) CK-MB (CK-2) Rel Index Total Protein Albumin Urine WBC (Auto) Vancomycin Trough Salicylates Acetaminophen Plasma/Serum Alcohol Crossmatch 11/23/19 11/24/19 11/24/19 06:32 04:35 04:35 WBC RBC Hgb Hct MCH RDW Plt Count Lymph % (Auto) [place] % (Auto) [place] # Baso # Seg Neutrophils % Seg Neuts % (Manual) Lymphocytes % (Manual) Monocytes % (Manual) Seg Neutrophils # Seg Neutrophils # Man Lymphocytes # (Manual) Monocytes # (Manual) Eosinophils # (Manual) Basophils # (Manual) PT INR APTT ABG pH ABG pO2 ABG HCO3 ABG O2 Saturation ABG Base Excess ABG Hemoglobin Oxyhemoglobin Sodium Potassium Chloride Carbon Dioxide BUN Creatinine Glucose POC Glucose Lactic Acid 3.30 H* Calcium Ionized Calcium Phosphorus Magnesium 1.40 L Total Bilirubin AST ALT Alkaline Phosphatase Ammonia 98.0 H Total Creatine Kinase CK-MB (CK-2) CK-MB (CK-2) Rel Index Total Protein Albumin Urine WBC (Auto) Vancomycin Trough Salicylates Acetaminophen Plasma/Serum Alcohol Crossmatch 11/24/19 11/25/19 11/25/19 05:22 04:34 05:05 WBC 17.3 H RBC 2.88 L Hgb 7.8 L Hct 24.6 L MCH 27 L RDW 18.5 H Plt Count Lymph % (Auto) 7.7 L [place] % (Auto) 9.7 H [place] # 1.7 H Baso # Seg Neutrophils % 82.2 H Seg Neuts % (Manual) Lymphocytes % (Manual) Monocytes % (Manual) Seg Neutrophils # 14.2 H Seg Neutrophils # Man Lymphocytes # (Manual) Monocytes # (Manual) Eosinophils # (Manual) Basophils # (Manual) PT INR APTT ABG pH 7.475 H ABG pO2 ABG HCO3 29.4 H 32.3 H ABG O2 Saturation ABG Base Excess 5.4 H 6.9 H ABG Hemoglobin 9.0 L 10.6 L Oxyhemoglobin 94.3 L Sodium Potassium Chloride Carbon Dioxide BUN Creatinine Glucose POC Glucose Lactic Acid Calcium Ionized Calcium Phosphorus Magnesium Total Bilirubin AST ALT Alkaline Phosphatase Ammonia Total Creatine Kinase CK-MB (CK-2) CK-MB (CK-2) Rel Index Total Protein Albumin Urine WBC (Auto) Vancomycin Trough Salicylates Acetaminophen Plasma/Serum Alcohol Crossmatch 11/25/19 11/25/19 11/26/19 05:05 22:46 03:31 WBC RBC Hgb Hct MCH RDW Plt Count Lymph % (Auto) [place] % (Auto) [place] # Baso # Seg Neutrophils % Seg Neuts % (Manual) Lymphocytes % (Manual) Monocytes % (Manual) Seg Neutrophils # Seg Neutrophils # Man Lymphocytes # (Manual) Monocytes # (Manual) Eosinophils # (Manual) Basophils # (Manual) PT INR APTT ABG pH 7.459 H ABG pO2 ABG HCO3 34.2 H ABG O2 Saturation ABG Base Excess 9.4 H ABG Hemoglobin 7.6 L Oxyhemoglobin 94.8 L Sodium 152 H D 147 H Potassium 2.3 L* D 2.8 L* D Chloride 107.8 H Carbon Dioxide 31 H D 33 H BUN Creatinine 0.6 L 0.6 L Glucose 148 H 177 H POC Glucose Lactic Acid Calcium Ionized Calcium Phosphorus Magnesium Total Bilirubin AST 105 H ALT 71 H Alkaline Phosphatase 155 H Ammonia Total Creatine Kinase CK-MB (CK-2) CK-MB (CK-2) Rel Index Total Protein 5.2 L D Albumin 2.9 L Urine WBC (Auto) Vancomycin Trough Salicylates Acetaminophen Plasma/Serum Alcohol Crossmatch 11/26/19 11/26/19 11/27/19 08:24 08:24 04:20 WBC 12.0 H RBC 3.00 L Hgb 8.0 L 9.3 L Hct 25.9 L 29.7 L MCH 27 L RDW 18.5 H Plt Count Lymph % (Auto) [place] % (Auto) [place] # Baso # Seg Neutrophils % Seg Neuts % (Manual) 89.0 H Lymphocytes % (Manual) 4.0 L Monocytes % (Manual) Seg Neutrophils # Seg Neutrophils # Man 10.7 H Lymphocytes # (Manual) 0.5 L Monocytes # (Manual) Eosinophils # (Manual) Basophils # (Manual) PT INR APTT ABG pH ABG pO2 ABG HCO3 ABG O2 Saturation ABG Base Excess ABG Hemoglobin Oxyhemoglobin Sodium 146 H Potassium 3.4 L D Chloride Carbon Dioxide BUN Creatinine 0.5 L Glucose 165 H POC Glucose Lactic Acid Calcium Ionized Calcium Phosphorus Magnesium Total Bilirubin AST 57 H ALT Alkaline Phosphatase 166 H Ammonia Total Creatine Kinase CK-MB (CK-2) CK-MB (CK-2) Rel Index Total Protein Albumin 2.9 L Urine WBC (Auto) Vancomycin Trough Salicylates Acetaminophen Plasma/Serum Alcohol Crossmatch 11/27/19 11/27/19 11/27/19 04:28 04:28 04:42 WBC RBC Hgb Hct MCH RDW Plt Count Lymph % (Auto) [place] % (Auto) [place] # Baso # Seg Neutrophils % Seg Neuts % (Manual) Lymphocytes % (Manual) Monocytes % (Manual) Seg Neutrophils # Seg Neutrophils # Man Lymphocytes # (Manual) Monocytes # (Manual) Eosinophils # (Manual) Basophils # (Manual) PT INR APTT ABG pH 7.470 H ABG pO2 74.0 L ABG HCO3 33.8 H ABG O2 Saturation ABG Base Excess 9.1 H ABG Hemoglobin 8.7 L Oxyhemoglobin 94.7 L Sodium 146 H Potassium 2.9 L* Chloride Carbon Dioxide BUN 25 H Creatinine Glucose 213 H POC Glucose Lactic Acid Calcium Ionized Calcium Phosphorus 1.00 L Magnesium Total Bilirubin AST ALT Alkaline Phosphatase Ammonia Total Creatine Kinase CK-MB (CK-2) CK-MB (CK-2) Rel Index Total Protein Albumin Urine WBC (Auto) Vancomycin Trough Salicylates Acetaminophen Plasma/Serum Alcohol Crossmatch 11/27/19 11/27/19 11/27/19 05:37 12:20 15:46 WBC RBC Hgb Hct MCH RDW Plt Count Lymph % (Auto) [place] % (Auto) [place] # Baso # Seg Neutrophils % Seg Neuts % (Manual) Lymphocytes % (Manual) Monocytes % (Manual) Seg Neutrophils # Seg Neutrophils # Man Lymphocytes # (Manual) Monocytes # (Manual) Eosinophils # (Manual) Basophils # (Manual) PT INR APTT ABG pH ABG pO2 ABG HCO3 ABG O2 Saturation ABG Base Excess ABG Hemoglobin Oxyhemoglobin Sodium 146 H Potassium 3.5 L D Chloride Carbon Dioxide BUN 24 H Creatinine 0.6 L Glucose 187 H POC Glucose 117 H 220 H Lactic Acid Calcium Ionized Calcium Phosphorus Magnesium Total Bilirubin AST ALT Alkaline Phosphatase Ammonia Total Creatine Kinase CK-MB (CK-2) CK-MB (CK-2) Rel Index Total Protein Albumin Urine WBC (Auto) Vancomycin Trough Salicylates Acetaminophen Plasma/Serum Alcohol Crossmatch 11/27/19 11/28/19 11/28/19 17:28 05:00 05:02 WBC RBC Hgb Hct MCH RDW Plt Count Lymph % (Auto) [place] % (Auto) [place] # Baso # Seg Neutrophils % Seg Neuts % (Manual) Lymphocytes % (Manual) Monocytes % (Manual) Seg Neutrophils # Seg Neutrophils # Man Lymphocytes # (Manual) Monocytes # (Manual) Eosinophils # (Manual) Basophils # (Manual) PT INR APTT ABG pH ABG pO2 72.4 L ABG HCO3 33.6 H ABG O2 Saturation 94.1 L ABG Base Excess 7.3 H ABG Hemoglobin Oxyhemoglobin 91.8 L Sodium 146 H Potassium 3.3 L Chloride Carbon Dioxide BUN 25 H Creatinine 0.6 L Glucose 176 H POC Glucose 198 H Lactic Acid Calcium Ionized Calcium Phosphorus Magnesium Total Bilirubin AST ALT Alkaline Phosphatase Ammonia Total Creatine Kinase CK-MB (CK-2) CK-MB (CK-2) Rel Index Total Protein Albumin Urine WBC (Auto) Vancomycin Trough Salicylates Acetaminophen Plasma/Serum Alcohol Crossmatch 11/28/19 11/28/19 11/29/19 05:02 18:55 10:43 WBC 15.2 H 19.0 H RBC 3.06 L 3.01 L Hgb 8.3 L 8.3 L Hct 27.0 L 26.4 L MCH 27 L RDW 19.0 H 19.7 H Plt Count 479 H 611 H Lymph % (Auto) [place] % (Auto) [place] # Baso # Seg Neutrophils % Seg Neuts % (Manual) 92.0 H Lymphocytes % (Manual) 2.0 L Monocytes % (Manual) Seg Neutrophils # Seg Neutrophils # Man 14.0 H Lymphocytes # (Manual) 0.3 L Monocytes # (Manual) Eosinophils # (Manual) Basophils # (Manual) PT INR APTT ABG pH ABG pO2 ABG HCO3 ABG O2 Saturation ABG Base Excess ABG Hemoglobin Oxyhemoglobin Sodium Potassium Chloride Carbon Dioxide BUN Creatinine Glucose POC Glucose 138 H Lactic Acid Calcium Ionized Calcium Phosphorus Magnesium Total Bilirubin AST ALT Alkaline Phosphatase Ammonia Total Creatine Kinase CK-MB (CK-2) CK-MB (CK-2) Rel Index Total Protein Albumin Urine WBC (Auto) Vancomycin Trough Salicylates Acetaminophen Plasma/Serum Alcohol Crossmatch 11/29/19 11/29/19 11/29/19 10:43 12:27 19:25 WBC RBC Hgb Hct MCH RDW Plt Count Lymph % (Auto) [place] % (Auto) [place] # Baso # Seg Neutrophils % Seg Neuts % (Manual) Lymphocytes % (Manual) Monocytes % (Manual) Seg Neutrophils # Seg Neutrophils # Man Lymphocytes # (Manual) Monocytes # (Manual) Eosinophils # (Manual) Basophils # (Manual) PT INR APTT ABG pH ABG pO2 ABG HCO3 ABG O2 Saturation ABG Base Excess ABG Hemoglobin Oxyhemoglobin Sodium Potassium 2.8 L* Chloride Carbon Dioxide BUN 20 H Creatinine 0.5 L Glucose 121 H POC Glucose 128 H 120 H Lactic Acid Calcium Ionized Calcium Phosphorus Magnesium Total Bilirubin AST ALT Alkaline Phosphatase Ammonia Total Creatine Kinase CK-MB (CK-2) CK-MB (CK-2) Rel Index Total Protein Albumin Urine WBC (Auto) Vancomycin Trough Salicylates Acetaminophen Plasma/Serum Alcohol Crossmatch 11/29/19 11/30/19 11/30/19 23:46 04:10 05:02 WBC RBC Hgb Hct MCH RDW Plt Count Lymph % (Auto) [place] % (Auto) [place] # Baso # Seg Neutrophils % Seg Neuts % (Manual) Lymphocytes % (Manual) Monocytes % (Manual) Seg Neutrophils # Seg Neutrophils # Man Lymphocytes # (Manual) Monocytes # (Manual) Eosinophils # (Manual) Basophils # (Manual) PT INR APTT ABG pH ABG pO2 76.3 L ABG HCO3 32.5 H ABG O2 Saturation ABG Base Excess 6.9 H ABG Hemoglobin 8.0 L Oxyhemoglobin 92.6 L Sodium Potassium Chloride Carbon Dioxide BUN Creatinine Glucose POC Glucose 116 H 128 H Lactic Acid Calcium Ionized Calcium Phosphorus Magnesium Total Bilirubin AST ALT Alkaline Phosphatase Ammonia Total Creatine Kinase CK-MB (CK-2) CK-MB (CK-2) Rel Index Total Protein Albumin Urine WBC (Auto) Vancomycin Trough Salicylates Acetaminophen Plasma/Serum Alcohol Crossmatch 11/30/19 11/30/19 11/30/19 05:25 05:25 12:59 WBC 18.4 H RBC 3.10 L Hgb 8.5 L Hct 27.5 L MCH 27 L RDW 20.9 H Plt Count 691 H Lymph % (Auto) 7.1 L [place] % (Auto) 7.7 H [place] # 1.4 H Baso # Seg Neutrophils % 83.4 H Seg Neuts % (Manual) Lymphocytes % (Manual) Monocytes % (Manual) Seg Neutrophils # 15.4 H Seg Neutrophils # Man Lymphocytes # (Manual) Monocytes # (Manual) Eosinophils # (Manual) Basophils # (Manual) PT INR APTT ABG pH ABG pO2 ABG HCO3 ABG O2 Saturation ABG Base Excess ABG Hemoglobin Oxyhemoglobin Sodium 146 H Potassium Chloride 107.2 H Carbon Dioxide BUN Creatinine 0.5 L Glucose 132 H POC Glucose 124 H Lactic Acid Calcium Ionized Calcium Phosphorus Magnesium Total Bilirubin AST 246 H ALT 274 H Alkaline Phosphatase 203 H Ammonia Total Creatine Kinase CK-MB (CK-2) CK-MB (CK-2) Rel Index Total Protein 5.4 L Albumin 2.9 L Urine WBC (Auto) Vancomycin Trough Salicylates Acetaminophen Plasma/Serum Alcohol Crossmatch 11/30/19 12/01/19 12/01/19 17:53 00:05 05:10 WBC RBC Hgb Hct MCH RDW Plt Count Lymph % (Auto) [place] % (Auto) [place] # Baso # Seg Neutrophils % Seg Neuts % (Manual) Lymphocytes % (Manual) Monocytes % (Manual) Seg Neutrophils # Seg Neutrophils # Man Lymphocytes # (Manual) Monocytes # (Manual) Eosinophils # (Manual) Basophils # (Manual) PT INR APTT ABG pH ABG pO2 ABG HCO3 ABG O2 Saturation ABG Base Excess ABG Hemoglobin Oxyhemoglobin Sodium Potassium Chloride Carbon Dioxide BUN Creatinine Glucose POC Glucose 113 H 143 H 145 H Lactic Acid Calcium Ionized Calcium Phosphorus Magnesium Total Bilirubin AST ALT Alkaline Phosphatase Ammonia Total Creatine Kinase CK-MB (CK-2) CK-MB (CK-2) Rel Index Total Protein Albumin Urine WBC (Auto) Vancomycin Trough Salicylates Acetaminophen Plasma/Serum Alcohol Crossmatch 12/01/19 12/01/19 12/01/19 05:33 08:23 08:23 WBC 22.7 H RBC 2.88 L Hgb 7.9 L Hct 25.2 L MCH 27 L RDW 21.0 H Plt Count 732 H Lymph % (Auto) [place] % (Auto) [place] # Baso # Seg Neutrophils % Seg Neuts % (Manual) 91.0 H Lymphocytes % (Manual) 3.0 L Monocytes % (Manual) Seg Neutrophils # Seg Neutrophils # Man 20.7 H Lymphocytes # (Manual) 0.7 L Monocytes # (Manual) 1.1 H Eosinophils # (Manual) Basophils # (Manual) PT INR APTT ABG pH ABG pO2 68.6 L ABG HCO3 34.1 H ABG O2 Saturation ABG Base Excess 9.0 H ABG Hemoglobin 6.5 L Oxyhemoglobin 94.7 L Sodium Potassium Chloride Carbon Dioxide BUN Creatinine 0.5 L Glucose 125 H POC Glucose Lactic Acid Calcium Ionized Calcium Phosphorus Magnesium Total Bilirubin AST ALT Alkaline Phosphatase Ammonia Total Creatine Kinase CK-MB (CK-2) CK-MB (CK-2) Rel Index Total Protein Albumin Urine WBC (Auto) Vancomycin Trough Salicylates Acetaminophen Plasma/Serum Alcohol Crossmatch 12/01/19 12/01/19 12/01/19 13:21 17:54 20:59 WBC RBC Hgb Hct MCH RDW Plt Count Lymph % (Auto) [place] % (Auto) [place] # Baso # Seg Neutrophils % Seg Neuts % (Manual) Lymphocytes % (Manual) Monocytes % (Manual) Seg Neutrophils # Seg Neutrophils # Man Lymphocytes # (Manual) Monocytes # (Manual) Eosinophils # (Manual) Basophils # (Manual) PT INR APTT ABG pH ABG pO2 78.3 L ABG HCO3 33.8 H ABG O2 Saturation 94.9 L ABG Base Excess 7.9 H ABG Hemoglobin 11.5 L Oxyhemoglobin 92.3 L Sodium Potassium Chloride Carbon Dioxide BUN Creatinine Glucose POC Glucose 111 H 115 H Lactic Acid Calcium Ionized Calcium Phosphorus Magnesium Total Bilirubin AST ALT Alkaline Phosphatase Ammonia Total Creatine Kinase CK-MB (CK-2) CK-MB (CK-2) Rel Index Total Protein Albumin Urine WBC (Auto) Vancomycin Trough Salicylates Acetaminophen Plasma/Serum Alcohol Crossmatch 12/02/19 12/03/19 12/04/19 12:55 20:00 04:26 WBC 15.2 H RBC 2.69 L Hgb 7.4 L Hct 23.6 L MCH 27 L RDW 19.9 H Plt Count 838 H Lymph % (Auto) [place] % (Auto) [place] # Baso # Seg Neutrophils % Seg Neuts % (Manual) Lymphocytes % (Manual) Monocytes % (Manual) Seg Neutrophils # Seg Neutrophils # Man Lymphocytes # (Manual) Monocytes # (Manual) Eosinophils # (Manual) Basophils # (Manual) PT INR APTT ABG pH ABG pO2 68.3 L ABG HCO3 33.5 H ABG O2 Saturation 93.5 L ABG Base Excess 8.4 H ABG Hemoglobin 7.3 L Oxyhemoglobin 90.9 L Sodium Potassium Chloride Carbon Dioxide BUN Creatinine Glucose POC Glucose 107 H Lactic Acid Calcium Ionized Calcium Phosphorus Magnesium Total Bilirubin AST ALT Alkaline Phosphatase Ammonia Total Creatine Kinase CK-MB (CK-2) CK-MB (CK-2) Rel Index Total Protein Albumin Urine WBC (Auto) Vancomycin Trough Salicylates Acetaminophen Plasma/Serum Alcohol Crossmatch 12/04/19 12/04/19 12/04/19 04:26 07:45 12:02 WBC 15.9 H RBC 2.88 L Hgb 7.9 L Hct 25.1 L MCH RDW 20.4 H Plt Count 839 H Lymph % (Auto) 11.3 L [place] % (Auto) 15.2 H [place] # 2.4 H Baso # Seg Neutrophils % 72.4 H Seg Neuts % (Manual) Lymphocytes % (Manual) Monocytes % (Manual) Seg Neutrophils # 11.5 H Seg Neutrophils # Man Lymphocytes # (Manual) Monocytes # (Manual) Eosinophils # (Manual) Basophils # (Manual) PT INR APTT ABG pH ABG pO2 ABG HCO3 ABG O2 Saturation ABG Base Excess ABG Hemoglobin Oxyhemoglobin Sodium Potassium Chloride 96.5 L Carbon Dioxide BUN 21 H Creatinine 0.6 L Glucose 107 H POC Glucose 138 H Lactic Acid Calcium Ionized Calcium Phosphorus Magnesium Total Bilirubin AST ALT Alkaline Phosphatase Ammonia Total Creatine Kinase CK-MB (CK-2) CK-MB (CK-2) Rel Index Total Protein Albumin Urine WBC (Auto) Vancomycin Trough Salicylates Acetaminophen Plasma/Serum Alcohol Crossmatch 12/04/19 12/05/19 12/05/19 18:16 11:55 18:36 WBC RBC Hgb Hct MCH RDW Plt Count Lymph % (Auto) [place] % (Auto) [place] # Baso # Seg Neutrophils % Seg Neuts % (Manual) Lymphocytes % (Manual) Monocytes % (Manual) Seg Neutrophils # Seg Neutrophils # Man Lymphocytes # (Manual) Monocytes # (Manual) Eosinophils # (Manual) Basophils # (Manual) PT INR APTT ABG pH ABG pO2 ABG HCO3 ABG O2 Saturation ABG Base Excess ABG Hemoglobin Oxyhemoglobin Sodium Potassium Chloride Carbon Dioxide BUN Creatinine Glucose POC Glucose 135 H 125 H 135 H Lactic Acid Calcium Ionized Calcium Phosphorus Magnesium Total Bilirubin AST ALT Alkaline Phosphatase Ammonia Total Creatine Kinase CK-MB (CK-2) CK-MB (CK-2) Rel Index Total Protein Albumin Urine WBC (Auto) Vancomycin Trough Salicylates Acetaminophen Plasma/Serum Alcohol Crossmatch 12/05/19 12/06/19 12/06/19 23:30 04:14 05:43 WBC RBC Hgb Hct MCH RDW Plt Count Lymph % (Auto) [place] % (Auto) [place] # Baso # Seg Neutrophils % Seg Neuts % (Manual) Lymphocytes % (Manual) Monocytes % (Manual) Seg Neutrophils # Seg Neutrophils # Man Lymphocytes # (Manual) Monocytes # (Manual) Eosinophils # (Manual) Basophils # (Manual) PT INR APTT ABG pH ABG pO2 ABG HCO3 ABG O2 Saturation ABG Base Excess ABG Hemoglobin Oxyhemoglobin Sodium Potassium 5.6 H Chloride 95.0 L Carbon Dioxide BUN 48 H Creatinine 1.3 H D Glucose POC Glucose 126 H 121 H Lactic Acid Calcium Ionized Calcium Phosphorus Magnesium Total Bilirubin AST 89 H ALT 98 H Alkaline Phosphatase 476 H Ammonia Total Creatine Kinase CK-MB (CK-2) CK-MB (CK-2) Rel Index Total Protein Albumin 2.8 L Urine WBC (Auto) Vancomycin Trough Salicylates Acetaminophen Plasma/Serum Alcohol Crossmatch 12/06/19 12/06/19 12/07/19 10:39 14:34 00:19 WBC 17.3 H RBC 2.60 L Hgb 7.1 L Hct 22.7 L MCH 27 L RDW 20.1 H Plt Count 832 H Lymph % (Auto) [place] % (Auto) [place] # Baso # Seg Neutrophils % Seg Neuts % (Manual) Lymphocytes % (Manual) Monocytes % (Manual) Seg Neutrophils # Seg Neutrophils # Man Lymphocytes # (Manual) Monocytes # (Manual) Eosinophils # (Manual) Basophils # (Manual) PT INR APTT ABG pH ABG pO2 ABG HCO3 ABG O2 Saturation ABG Base Excess ABG Hemoglobin Oxyhemoglobin Sodium Potassium Chloride Carbon Dioxide BUN Creatinine Glucose POC Glucose 128 H 136 H Lactic Acid Calcium Ionized Calcium Phosphorus Magnesium Total Bilirubin AST ALT Alkaline Phosphatase Ammonia Total Creatine Kinase CK-MB (CK-2) CK-MB (CK-2) Rel Index Total Protein Albumin Urine WBC (Auto) Vancomycin Trough Salicylates Acetaminophen Plasma/Serum Alcohol Crossmatch 12/07/19 12/07/19 12/07/19 03:44 03:44 05:53 WBC 16.2 H RBC 2.56 L Hgb 7.1 L Hct 22.3 L MCH RDW 19.4 H Plt Count 782 H Lymph % (Auto) [place] % (Auto) [place] # Baso # Seg Neutrophils % Seg Neuts % (Manual) Lymphocytes % (Manual) Monocytes % (Manual) Seg Neutrophils # Seg Neutrophils # Man Lymphocytes # (Manual) Monocytes # (Manual) Eosinophils # (Manual) Basophils # (Manual) PT INR APTT ABG pH ABG pO2 ABG HCO3 ABG O2 Saturation ABG Base Excess ABG Hemoglobin Oxyhemoglobin Sodium Potassium Chloride 95.6 L Carbon Dioxide BUN 56 H Creatinine 1.4 H Glucose 120 H POC Glucose 128 H Lactic Acid Calcium 10.3 H Ionized Calcium Phosphorus Magnesium Total Bilirubin AST ALT Alkaline Phosphatase Ammonia Total Creatine Kinase CK-MB (CK-2) CK-MB (CK-2) Rel Index Total Protein Albumin Urine WBC (Auto) Vancomycin Trough Salicylates Acetaminophen Plasma/Serum Alcohol Crossmatch 12/07/19 12/07/19 12/08/19 12:54 23:47 00:20 WBC RBC Hgb Hct MCH RDW Plt Count Lymph % (Auto) [place] % (Auto) [place] # Baso # Seg Neutrophils % Seg Neuts % (Manual) Lymphocytes % (Manual) Monocytes % (Manual) Seg Neutrophils # Seg Neutrophils # Man Lymphocytes # (Manual) Monocytes # (Manual) Eosinophils # (Manual) Basophils # (Manual) PT INR APTT ABG pH ABG pO2 ABG HCO3 ABG O2 Saturation ABG Base Excess ABG Hemoglobin Oxyhemoglobin Sodium Potassium Chloride Carbon Dioxide BUN Creatinine Glucose POC Glucose 128 H 130 H 124 H Lactic Acid Calcium Ionized Calcium Phosphorus Magnesium Total Bilirubin AST ALT Alkaline Phosphatase Ammonia Total Creatine Kinase CK-MB (CK-2) CK-MB (CK-2) Rel Index Total Protein Albumin Urine WBC (Auto) Vancomycin Trough Salicylates Acetaminophen Plasma/Serum Alcohol Crossmatch 12/08/19 12/08/19 12/08/19 06:38 12:04 18:26 WBC RBC Hgb Hct MCH RDW Plt Count Lymph % (Auto) [place] % (Auto) [place] # Baso # Seg Neutrophils % Seg Neuts % (Manual) Lymphocytes % (Manual) Monocytes % (Manual) Seg Neutrophils # Seg Neutrophils # Man Lymphocytes # (Manual) Monocytes # (Manual) Eosinophils # (Manual) Basophils # (Manual) PT INR APTT ABG pH ABG pO2 ABG HCO3 ABG O2 Saturation ABG Base Excess ABG Hemoglobin Oxyhemoglobin Sodium Potassium Chloride Carbon Dioxide BUN Creatinine Glucose POC Glucose 137 H 129 H 150 H Lactic Acid Calcium Ionized Calcium Phosphorus Magnesium Total Bilirubin AST ALT Alkaline Phosphatase Ammonia Total Creatine Kinase CK-MB (CK-2) CK-MB (CK-2) Rel Index Total Protein Albumin Urine WBC (Auto) Vancomycin Trough Salicylates Acetaminophen Plasma/Serum Alcohol Crossmatch 12/09/19 12/09/19 12/09/19 00:56 05:34 06:13 WBC RBC Hgb Hct MCH RDW Plt Count Lymph % (Auto) [place] % (Auto) [place] # Baso # Seg Neutrophils % Seg Neuts % (Manual) Lymphocytes % (Manual) Monocytes % (Manual) Seg Neutrophils # Seg Neutrophils # Man Lymphocytes # (Manual) Monocytes # (Manual) Eosinophils # (Manual) Basophils # (Manual) PT INR APTT ABG pH ABG pO2 ABG HCO3 ABG O2 Saturation ABG Base Excess ABG Hemoglobin Oxyhemoglobin Sodium 146 H Potassium Chloride Carbon Dioxide BUN 66 H Creatinine 1.9 H Glucose 116 H POC Glucose 130 H 130 H Lactic Acid Calcium Ionized Calcium Phosphorus Magnesium Total Bilirubin AST ALT Alkaline Phosphatase Ammonia Total Creatine Kinase CK-MB (CK-2) CK-MB (CK-2) Rel Index Total Protein Albumin Urine WBC (Auto) Vancomycin Trough Salicylates Acetaminophen Plasma/Serum Alcohol Crossmatch 12/09/19 12/09/19 12/10/19 11:52 17:50 00:14 WBC RBC Hgb Hct MCH RDW Plt Count Lymph % (Auto) [place] % (Auto) [place] # Baso # Seg Neutrophils % Seg Neuts % (Manual) Lymphocytes % (Manual) Monocytes % (Manual) Seg Neutrophils # Seg Neutrophils # Man Lymphocytes # (Manual) Monocytes # (Manual) Eosinophils # (Manual) Basophils # (Manual) PT INR APTT ABG pH ABG pO2 ABG HCO3 ABG O2 Saturation ABG Base Excess ABG Hemoglobin Oxyhemoglobin Sodium Potassium Chloride Carbon Dioxide BUN Creatinine Glucose POC Glucose 135 H 120 H 116 H Lactic Acid Calcium Ionized Calcium Phosphorus Magnesium Total Bilirubin AST ALT Alkaline Phosphatase Ammonia Total Creatine Kinase CK-MB (CK-2) CK-MB (CK-2) Rel Index Total Protein Albumin Urine WBC (Auto) Vancomycin Trough Salicylates Acetaminophen Plasma/Serum Alcohol Crossmatch 12/10/19 12/10/19 12/10/19 05:38 11:38 17:34 WBC RBC Hgb Hct MCH RDW Plt Count Lymph % (Auto) [place] % (Auto) [place] # Baso # Seg Neutrophils % Seg Neuts % (Manual) Lymphocytes % (Manual) Monocytes % (Manual) Seg Neutrophils # Seg Neutrophils # Man Lymphocytes # (Manual) Monocytes # (Manual) Eosinophils # (Manual) Basophils # (Manual) PT INR APTT ABG pH ABG pO2 ABG HCO3 ABG O2 Saturation ABG Base Excess ABG Hemoglobin Oxyhemoglobin Sodium Potassium Chloride Carbon Dioxide BUN Creatinine Glucose POC Glucose 115 H 112 H 130 H Lactic Acid Calcium Ionized Calcium Phosphorus Magnesium Total Bilirubin AST ALT Alkaline Phosphatase Ammonia Total Creatine Kinase CK-MB (CK-2) CK-MB (CK-2) Rel Index Total Protein Albumin Urine WBC (Auto) Vancomycin Trough Salicylates Acetaminophen Plasma/Serum Alcohol Crossmatch 12/11/19 12/11/19 12/11/19 00:20 05:31 12:22 WBC RBC Hgb Hct MCH RDW Plt Count Lymph % (Auto) [place] % (Auto) [place] # Baso # Seg Neutrophils % Seg Neuts % (Manual) Lymphocytes % (Manual) Monocytes % (Manual) Seg Neutrophils # Seg Neutrophils # Man Lymphocytes # (Manual) Monocytes # (Manual) Eosinophils # (Manual) Basophils # (Manual) PT INR APTT ABG pH ABG pO2 ABG HCO3 ABG O2 Saturation ABG Base Excess ABG Hemoglobin Oxyhemoglobin Sodium Potassium Chloride Carbon Dioxide BUN Creatinine Glucose POC Glucose 124 H 132 H 128 H Lactic Acid Calcium Ionized Calcium Phosphorus Magnesium Total Bilirubin AST ALT Alkaline Phosphatase Ammonia Total Creatine Kinase CK-MB (CK-2) CK-MB (CK-2) Rel Index Total Protein Albumin Urine WBC (Auto) Vancomycin Trough Salicylates Acetaminophen Plasma/Serum Alcohol Crossmatch 12/11/19 12/11/19 12/12/19 18:04 23:42 03:51 WBC RBC Hgb Hct MCH RDW Plt Count Lymph % (Auto) [place] % (Auto) [place] # Baso # Seg Neutrophils % Seg Neuts % (Manual) Lymphocytes % (Manual) Monocytes % (Manual) Seg Neutrophils # Seg Neutrophils # Man Lymphocytes # (Manual) Monocytes # (Manual) Eosinophils # (Manual) Basophils # (Manual) PT INR APTT ABG pH ABG pO2 ABG HCO3 ABG O2 Saturation ABG Base Excess ABG Hemoglobin Oxyhemoglobin Sodium 149 H Potassium Chloride Carbon Dioxide 20 L D BUN 77 H Creatinine 2.8 H Glucose POC Glucose 133 H 154 H Lactic Acid Calcium Ionized Calcium Phosphorus Magnesium Total Bilirubin AST ALT Alkaline Phosphatase Ammonia Total Creatine Kinase CK-MB (CK-2) CK-MB (CK-2) Rel Index Total Protein Albumin Urine WBC (Auto) Vancomycin Trough Salicylates Acetaminophen Plasma/Serum Alcohol Crossmatch 12/12/19 12/12/19 12/12/19 05:18 05:26 10:30 WBC 18.0 H RBC 2.51 L Hgb 6.8 L Hct 22.0 L MCH 27 L RDW 19.9 H Plt Count 582 H Lymph % (Auto) [place] % (Auto) [place] # Baso # Seg Neutrophils % Seg Neuts % (Manual) Lymphocytes % (Manual) Monocytes % (Manual) Seg Neutrophils # Seg Neutrophils # Man Lymphocytes # (Manual) Monocytes # (Manual) Eosinophils # (Manual) Basophils # (Manual) PT INR APTT ABG pH ABG pO2 ABG HCO3 ABG O2 Saturation ABG Base Excess ABG Hemoglobin Oxyhemoglobin Sodium Potassium Chloride Carbon Dioxide BUN Creatinine Glucose POC Glucose 135 H Lactic Acid Calcium Ionized Calcium Phosphorus Magnesium Total Bilirubin AST ALT Alkaline Phosphatase Ammonia Total Creatine Kinase CK-MB (CK-2) CK-MB (CK-2) Rel Index Total Protein Albumin Urine WBC (Auto) Vancomycin Trough Salicylates Acetaminophen Plasma/Serum Alcohol Crossmatch See Detail 12/12/19 12/12/19 12/12/19 11:44 18:10 23:21 WBC RBC Hgb Hct MCH RDW Plt Count Lymph % (Auto) [place] % (Auto) [place] # Baso # Seg Neutrophils % Seg Neuts % (Manual) Lymphocytes % (Manual) Monocytes % (Manual) Seg Neutrophils # Seg Neutrophils # Man Lymphocytes # (Manual) Monocytes # (Manual) Eosinophils # (Manual) Basophils # (Manual) PT INR APTT ABG pH ABG pO2 ABG HCO3 ABG O2 Saturation ABG Base Excess ABG Hemoglobin Oxyhemoglobin Sodium Potassium Chloride Carbon Dioxide BUN Creatinine Glucose POC Glucose 108 H 107 H 126 H Lactic Acid Calcium Ionized Calcium Phosphorus Magnesium Total Bilirubin AST ALT Alkaline Phosphatase Ammonia Total Creatine Kinase CK-MB (CK-2) CK-MB (CK-2) Rel Index Total Protein Albumin Urine WBC (Auto) Vancomycin Trough Salicylates Acetaminophen Plasma/Serum Alcohol Crossmatch 12/13/19 12/13/19 12/13/19 05:41 07:48 07:48 WBC 38.3 H RBC 2.37 L Hgb 6.3 L Hct 20.9 L MCH 27 L RDW 20.2 H Plt Count 546 H Lymph % (Auto) [place] % (Auto) [place] # Baso # Seg Neutrophils % Seg Neuts % (Manual) 93.0 H Lymphocytes % (Manual) 1.0 L Monocytes % (Manual) Seg Neutrophils # Seg Neutrophils # Man 35.6 H Lymphocytes # (Manual) 0.4 L Monocytes # (Manual) Eosinophils # (Manual) Basophils # (Manual) 0.4 H PT INR APTT ABG pH ABG pO2 ABG HCO3 ABG O2 Saturation ABG Base Excess ABG Hemoglobin Oxyhemoglobin Sodium 152 H Potassium 3.1 L D Chloride 111.9 H Carbon Dioxide 21 L BUN 53 H Creatinine 1.9 H Glucose 141 H POC Glucose 128 H Lactic Acid Calcium Ionized Calcium Phosphorus Magnesium Total Bilirubin AST ALT Alkaline Phosphatase 316 H Ammonia Total Creatine Kinase CK-MB (CK-2) CK-MB (CK-2) Rel Index Total Protein Albumin 2.4 L Urine WBC (Auto) Vancomycin Trough Salicylates Acetaminophen Plasma/Serum Alcohol Crossmatch 12/13/19 12/13/19 12/14/19 18:17 23:19 05:36 WBC RBC Hgb Hct MCH RDW Plt Count Lymph % (Auto) [place] % (Auto) [place] # Baso # Seg Neutrophils % Seg Neuts % (Manual) Lymphocytes % (Manual) Monocytes % (Manual) Seg Neutrophils # Seg Neutrophils # Man Lymphocytes # (Manual) Monocytes # (Manual) Eosinophils # (Manual) Basophils # (Manual) PT INR APTT ABG pH ABG pO2 ABG HCO3 ABG O2 Saturation ABG Base Excess ABG Hemoglobin Oxyhemoglobin Sodium Potassium Chloride Carbon Dioxide BUN Creatinine Glucose POC Glucose 141 H 158 H 182 H Lactic Acid Calcium Ionized Calcium Phosphorus Magnesium Total Bilirubin AST ALT Alkaline Phosphatase Ammonia Total Creatine Kinase CK-MB (CK-2) CK-MB (CK-2) Rel Index Total Protein Albumin Urine WBC (Auto) Vancomycin Trough Salicylates Acetaminophen Plasma/Serum Alcohol Crossmatch 12/14/19 12/14/19 12/14/19 08:48 08:48 10:31 WBC 33.3 H RBC 2.70 L Hgb 7.9 L 8.0 L Hct 25.3 L 24.0 L MCH RDW 19.2 H Plt Count 476 H Lymph % (Auto) [place] % (Auto) [place] # Baso # Seg Neutrophils % Seg Neuts % (Manual) Lymphocytes % (Manual) Monocytes % (Manual) Seg Neutrophils # Seg Neutrophils # Man Lymphocytes # (Manual) Monocytes # (Manual) Eosinophils # (Manual) Basophils # (Manual) PT INR APTT ABG pH ABG pO2 ABG HCO3 ABG O2 Saturation ABG Base Excess ABG Hemoglobin Oxyhemoglobin Sodium 153 H Potassium 2.5 L* Chloride 114.9 H Carbon Dioxide 20 L BUN 38 H Creatinine 1.4 H Glucose 177 H POC Glucose Lactic Acid Calcium Ionized Calcium Phosphorus Magnesium Total Bilirubin AST ALT Alkaline Phosphatase Ammonia Total Creatine Kinase CK-MB (CK-2) CK-MB (CK-2) Rel Index Total Protein Albumin Urine WBC (Auto) Vancomycin Trough Salicylates Acetaminophen Plasma/Serum Alcohol Crossmatch 12/14/19 12/14/19 12/14/19 12:57 16:15 17:50 WBC RBC Hgb Hct MCH RDW Plt Count Lymph % (Auto) [place] % (Auto) [place] # Baso # Seg Neutrophils % Seg Neuts % (Manual) Lymphocytes % (Manual) Monocytes % (Manual) Seg Neutrophils # Seg Neutrophils # Man Lymphocytes # (Manual) Monocytes # (Manual) Eosinophils # (Manual) Basophils # (Manual) PT INR APTT ABG pH ABG pO2 73.6 L ABG HCO3 ABG O2 Saturation ABG Base Excess ABG Hemoglobin 7.6 L Oxyhemoglobin 94.0 L Sodium Potassium Chloride Carbon Dioxide BUN Creatinine Glucose POC Glucose 174 H 150 H Lactic Acid Calcium Ionized Calcium Phosphorus Magnesium Total Bilirubin AST ALT Alkaline Phosphatase Ammonia Total Creatine Kinase CK-MB (CK-2) CK-MB (CK-2) Rel Index Total Protein Albumin Urine WBC (Auto) Vancomycin Trough Salicylates Acetaminophen Plasma/Serum Alcohol Crossmatch 12/15/19 12/15/19 12/15/19 00:28 05:27 07:23 WBC 30.0 H RBC 3.11 L Hgb 8.6 L Hct 27.7 L MCH RDW 20.0 H Plt Count 473 H Lymph % (Auto) [place] % (Auto) [place] # Baso # Seg Neutrophils % Seg Neuts % (Manual) Lymphocytes % (Manual) Monocytes % (Manual) Seg Neutrophils # Seg Neutrophils # Man Lymphocytes # (Manual) Monocytes # (Manual) Eosinophils # (Manual) Basophils # (Manual) PT INR APTT ABG pH ABG pO2 ABG HCO3 ABG O2 Saturation ABG Base Excess ABG Hemoglobin Oxyhemoglobin Sodium Potassium Chloride Carbon Dioxide BUN Creatinine Glucose POC Glucose 167 H 148 H Lactic Acid Calcium Ionized Calcium Phosphorus Magnesium Total Bilirubin AST ALT Alkaline Phosphatase Ammonia Total Creatine Kinase CK-MB (CK-2) CK-MB (CK-2) Rel Index Total Protein Albumin Urine WBC (Auto) Vancomycin Trough Salicylates Acetaminophen Plasma/Serum Alcohol Crossmatch 12/15/19 12/15/19 12/15/19 07:23 12:21 17:41 WBC RBC Hgb Hct MCH RDW Plt Count Lymph % (Auto) [place] % (Auto) [place] # Baso # Seg Neutrophils % Seg Neuts % (Manual) Lymphocytes % (Manual) Monocytes % (Manual) Seg Neutrophils # Seg Neutrophils # Man Lymphocytes # (Manual) Monocytes # (Manual) Eosinophils # (Manual) Basophils # (Manual) PT INR APTT ABG pH ABG pO2 ABG HCO3 ABG O2 Saturation ABG Base Excess ABG Hemoglobin Oxyhemoglobin Sodium 147 H Potassium 3.5 L D Chloride 111.2 H Carbon Dioxide 19 L BUN 29 H Creatinine Glucose 126 H POC Glucose 154 H 144 H Lactic Acid Calcium Ionized Calcium Phosphorus Magnesium Total Bilirubin AST ALT Alkaline Phosphatase Ammonia Total Creatine Kinase CK-MB (CK-2) CK-MB (CK-2) Rel Index Total Protein Albumin Urine WBC (Auto) Vancomycin Trough Salicylates Acetaminophen Plasma/Serum Alcohol Crossmatch 12/16/19 12/16/19 12/16/19 00:22 05:30 05:44 WBC 30.8 H RBC 2.58 L Hgb 7.1 L Hct 22.7 L MCH RDW 19.6 H Plt Count 451 H Lymph % (Auto) [place] % (Auto) [place] # Baso # Seg Neutrophils % Seg Neuts % (Manual) Lymphocytes % (Manual) Monocytes % (Manual) Seg Neutrophils # Seg Neutrophils # Man Lymphocytes # (Manual) Monocytes # (Manual) Eosinophils # (Manual) Basophils # (Manual) PT INR APTT ABG pH ABG pO2 ABG HCO3 ABG O2 Saturation ABG Base Excess ABG Hemoglobin Oxyhemoglobin Sodium Potassium Chloride Carbon Dioxide BUN Creatinine Glucose POC Glucose 139 H 126 H Lactic Acid Calcium Ionized Calcium Phosphorus Magnesium Total Bilirubin AST ALT Alkaline Phosphatase Ammonia Total Creatine Kinase CK-MB (CK-2) CK-MB (CK-2) Rel Index Total Protein Albumin Urine WBC (Auto) Vancomycin Trough Salicylates Acetaminophen Plasma/Serum Alcohol Crossmatch 12/16/19 12/16/19 12/16/19 05:44 11:48 17:37 WBC RBC Hgb Hct MCH RDW Plt Count Lymph % (Auto) [place] % (Auto) [place] # Baso # Seg Neutrophils % Seg Neuts % (Manual) Lymphocytes % (Manual) Monocytes % (Manual) Seg Neutrophils # Seg Neutrophils # Man Lymphocytes # (Manual) Monocytes # (Manual) Eosinophils # (Manual) Basophils # (Manual) PT INR APTT ABG pH ABG pO2 ABG HCO3 ABG O2 Saturation ABG Base Excess ABG Hemoglobin Oxyhemoglobin Sodium Potassium 3.4 L Chloride 109.2 H Carbon Dioxide 19 L BUN 27 H Creatinine Glucose 124 H POC Glucose 125 H 148 H Lactic Acid Calcium Ionized Calcium Phosphorus Magnesium Total Bilirubin AST ALT Alkaline Phosphatase Ammonia Total Creatine Kinase CK-MB (CK-2) CK-MB (CK-2) Rel Index Total Protein Albumin Urine WBC (Auto) Vancomycin Trough Salicylates Acetaminophen Plasma/Serum Alcohol Crossmatch 12/16/19 12/17/19 12/17/19 23:43 05:28 12:47 WBC RBC Hgb Hct MCH RDW Plt Count Lymph % (Auto) [place] % (Auto) [place] # Baso # Seg Neutrophils % Seg Neuts % (Manual) Lymphocytes % (Manual) Monocytes % (Manual) Seg Neutrophils # Seg Neutrophils # Man Lymphocytes # (Manual) Monocytes # (Manual) Eosinophils # (Manual) Basophils # (Manual) PT INR APTT ABG pH ABG pO2 ABG HCO3 ABG O2 Saturation ABG Base Excess ABG Hemoglobin Oxyhemoglobin Sodium Potassium Chloride Carbon Dioxide BUN Creatinine Glucose POC Glucose 142 H 140 H 125 H Lactic Acid Calcium Ionized Calcium Phosphorus Magnesium Total Bilirubin AST ALT Alkaline Phosphatase Ammonia Total Creatine Kinase CK-MB (CK-2) CK-MB (CK-2) Rel Index Total Protein Albumin Urine WBC (Auto) Vancomycin Trough Salicylates Acetaminophen Plasma/Serum Alcohol Crossmatch 12/17/19 12/17/19 12/17/19 17:05 18:00 Unknown WBC RBC Hgb Hct MCH RDW Plt Count Lymph % (Auto) [place] % (Auto) [place] # Baso # Seg Neutrophils % Seg Neuts % (Manual) Lymphocytes % (Manual) Monocytes % (Manual) Seg Neutrophils # Seg Neutrophils # Man Lymphocytes # (Manual) Monocytes # (Manual) Eosinophils # (Manual) Basophils # (Manual) PT INR APTT ABG pH ABG pO2 68.1 L ABG HCO3 ABG O2 Saturation 93.7 L ABG Base Excess ABG Hemoglobin 5.0 L Oxyhemoglobin 91.7 L Sodium Potassium Chloride Carbon Dioxide BUN Creatinine Glucose POC Glucose 140 H Lactic Acid Calcium Ionized Calcium Phosphorus Magnesium Total Bilirubin AST ALT Alkaline Phosphatase Ammonia Total Creatine Kinase CK-MB (CK-2) CK-MB (CK-2) Rel Index Total Protein Albumin Urine WBC (Auto) Vancomycin Trough Salicylates Acetaminophen Plasma/Serum Alcohol Crossmatch 12/18/19 12/18/19 12/18/19 00:16 04:53 04:53 WBC 28.6 H RBC 2.27 L Hgb 6.3 L Hct 19.5 L* MCH RDW 20.0 H Plt Count 497 H Lymph % (Auto) [place] % (Auto) [place] # Baso # Seg Neutrophils % Seg Neuts % (Manual) Lymphocytes % (Manual) Monocytes % (Manual) Seg Neutrophils # Seg Neutrophils # Man Lymphocytes # (Manual) Monocytes # (Manual) Eosinophils # (Manual) Basophils # (Manual) PT INR APTT ABG pH ABG pO2 ABG HCO3 ABG O2 Saturation ABG Base Excess ABG Hemoglobin Oxyhemoglobin Sodium Potassium Chloride 107.9 H Carbon Dioxide 20 L BUN 27 H Creatinine 0.6 L Glucose 116 H POC Glucose 123 H Lactic Acid Calcium Ionized Calcium Phosphorus Magnesium Total Bilirubin AST ALT Alkaline Phosphatase Ammonia Total Creatine Kinase CK-MB (CK-2) CK-MB (CK-2) Rel Index Total Protein Albumin Urine WBC (Auto) Vancomycin Trough Salicylates Acetaminophen Plasma/Serum Alcohol Crossmatch 12/18/19 12/18/19 12/18/19 06:38 11:22 12:08 WBC RBC Hgb Hct MCH RDW Plt Count Lymph % (Auto) [place] % (Auto) [place] # Baso # Seg Neutrophils % Seg Neuts % (Manual) Lymphocytes % (Manual) Monocytes % (Manual) Seg Neutrophils # Seg Neutrophils # Man Lymphocytes # (Manual) Monocytes # (Manual) Eosinophils # (Manual) Basophils # (Manual) PT INR APTT ABG pH ABG pO2 ABG HCO3 ABG O2 Saturation ABG Base Excess ABG Hemoglobin Oxyhemoglobin Sodium Potassium Chloride Carbon Dioxide BUN Creatinine Glucose POC Glucose 120 H 127 H Lactic Acid Calcium Ionized Calcium Phosphorus Magnesium Total Bilirubin AST ALT Alkaline Phosphatase Ammonia Total Creatine Kinase CK-MB (CK-2) CK-MB (CK-2) Rel Index Total Protein Albumin Urine WBC (Auto) Vancomycin Trough Salicylates Acetaminophen Plasma/Serum Alcohol Crossmatch See Detail 12/18/19 12/18/19 12/18/19 14:05 17:49 23:53 WBC RBC Hgb Hct MCH RDW Plt Count Lymph % (Auto) [place] % (Auto) [place] # Baso # Seg Neutrophils % Seg Neuts % (Manual) Lymphocytes % (Manual) Monocytes % (Manual) Seg Neutrophils # Seg Neutrophils # Man Lymphocytes # (Manual) Monocytes # (Manual) Eosinophils # (Manual) Basophils # (Manual) PT INR APTT ABG pH 7.267 L ABG pO2 69.8 L ABG HCO3 ABG O2 Saturation 88.4 L ABG Base Excess ABG Hemoglobin 7.1 L Oxyhemoglobin 86.4 L Sodium Potassium Chloride Carbon Dioxide BUN Creatinine Glucose POC Glucose 157 H 128 H Lactic Acid Calcium Ionized Calcium Phosphorus Magnesium Total Bilirubin AST ALT Alkaline Phosphatase Ammonia Total Creatine Kinase CK-MB (CK-2) CK-MB (CK-2) Rel Index Total Protein Albumin Urine WBC (Auto) Vancomycin Trough Salicylates Acetaminophen Plasma/Serum Alcohol Crossmatch 12/19/19 12/19/19 12/19/19 03:37 03:37 05:25 WBC 31.3 H RBC 2.60 L Hgb 7.6 L Hct 23.0 L MCH RDW 19.4 H Plt Count 530 H Lymph % (Auto) [place] % (Auto) [place] # Baso # Seg Neutrophils % Seg Neuts % (Manual) Lymphocytes % (Manual) Monocytes % (Manual) Seg Neutrophils # Seg Neutrophils # Man Lymphocytes # (Manual) Monocytes # (Manual) Eosinophils # (Manual) Basophils # (Manual) PT INR APTT ABG pH ABG pO2 ABG HCO3 ABG O2 Saturation ABG Base Excess ABG Hemoglobin Oxyhemoglobin Sodium Potassium Chloride Carbon Dioxide 18 L BUN 36 H Creatinine Glucose 111 H POC Glucose 123 H Lactic Acid Calcium Ionized Calcium Phosphorus Magnesium Total Bilirubin AST ALT Alkaline Phosphatase Ammonia Total Creatine Kinase CK-MB (CK-2) CK-MB (CK-2) Rel Index Total Protein Albumin Urine WBC (Auto) Vancomycin Trough Salicylates Acetaminophen Plasma/Serum Alcohol Crossmatch 12/19/19 12/19/19 12/20/19 12:59 18:33 00:00 WBC RBC Hgb Hct MCH RDW Plt Count Lymph % (Auto) [place] % (Auto) [place] # Baso # Seg Neutrophils % Seg Neuts % (Manual) Lymphocytes % (Manual) Monocytes % (Manual) Seg Neutrophils # Seg Neutrophils # Man Lymphocytes # (Manual) Monocytes # (Manual) Eosinophils # (Manual) Basophils # (Manual) PT INR APTT ABG pH ABG pO2 ABG HCO3 ABG O2 Saturation ABG Base Excess ABG Hemoglobin Oxyhemoglobin Sodium Potassium Chloride Carbon Dioxide BUN Creatinine Glucose POC Glucose 130 H 118 H 135 H Lactic Acid Calcium Ionized Calcium Phosphorus Magnesium Total Bilirubin AST ALT Alkaline Phosphatase Ammonia Total Creatine Kinase CK-MB (CK-2) CK-MB (CK-2) Rel Index Total Protein Albumin Urine WBC (Auto) Vancomycin Trough Salicylates Acetaminophen Plasma/Serum Alcohol Crossmatch 12/20/19 12/20/19 12/20/19 05:46 12:31 18:07 WBC RBC Hgb Hct MCH RDW Plt Count Lymph % (Auto) [place] % (Auto) [place] # Baso # Seg Neutrophils % Seg Neuts % (Manual) Lymphocytes % (Manual) Monocytes % (Manual) Seg Neutrophils # Seg Neutrophils # Man Lymphocytes # (Manual) Monocytes # (Manual) Eosinophils # (Manual) Basophils # (Manual) PT INR APTT ABG pH ABG pO2 ABG HCO3 ABG O2 Saturation ABG Base Excess ABG Hemoglobin Oxyhemoglobin Sodium Potassium Chloride Carbon Dioxide BUN Creatinine Glucose POC Glucose 131 H 128 H 134 H Lactic Acid Calcium Ionized Calcium Phosphorus Magnesium Total Bilirubin AST ALT Alkaline Phosphatase Ammonia Total Creatine Kinase CK-MB (CK-2) CK-MB (CK-2) Rel Index Total Protein Albumin Urine WBC (Auto) Vancomycin Trough Salicylates Acetaminophen Plasma/Serum Alcohol Crossmatch 12/21/19 12/21/19 12/21/19 03:28 03:28 07:21 WBC 29.4 H RBC 2.30 L Hgb 6.8 L Hct 20.2 L MCH RDW 20.2 H Plt Count 746 H Lymph % (Auto) [place] % (Auto) [place] # Baso # Seg Neutrophils % Seg Neuts % (Manual) 85.0 H Lymphocytes % (Manual) 8.0 L Monocytes % (Manual) Seg Neutrophils # Seg Neutrophils # Man 25.0 H Lymphocytes # (Manual) Monocytes # (Manual) 1.5 H Eosinophils # (Manual) 0.6 H Basophils # (Manual) PT INR APTT ABG pH ABG pO2 ABG HCO3 ABG O2 Saturation ABG Base Excess ABG Hemoglobin Oxyhemoglobin Sodium Potassium Chloride Carbon Dioxide 17 L BUN 57 H Creatinine 1.4 H D Glucose POC Glucose 124 H Lactic Acid Calcium Ionized Calcium Phosphorus Magnesium Total Bilirubin AST ALT Alkaline Phosphatase Ammonia Total Creatine Kinase CK-MB (CK-2) CK-MB (CK-2) Rel Index Total Protein Albumin Urine WBC (Auto) Vancomycin Trough Salicylates Acetaminophen Plasma/Serum Alcohol Crossmatch 12/21/19 12/21/19 12/21/19 08:56 12:06 14:53 WBC RBC Hgb 7.2 L Hct 22.9 L MCH RDW Plt Count Lymph % (Auto) [place] % (Auto) [place] # Baso # Seg Neutrophils % Seg Neuts % (Manual) Lymphocytes % (Manual) Monocytes % (Manual) Seg Neutrophils # Seg Neutrophils # Man Lymphocytes # (Manual) Monocytes # (Manual) Eosinophils # (Manual) Basophils # (Manual) PT INR APTT ABG pH ABG pO2 ABG HCO3 ABG O2 Saturation ABG Base Excess ABG Hemoglobin Oxyhemoglobin Sodium Potassium Chloride Carbon Dioxide BUN Creatinine Glucose POC Glucose 116 H Lactic Acid Calcium Ionized Calcium Phosphorus Magnesium Total Bilirubin AST ALT Alkaline Phosphatase Ammonia Total Creatine Kinase CK-MB (CK-2) CK-MB (CK-2) Rel Index Total Protein Albumin Urine WBC (Auto) Vancomycin Trough 33.8 H Salicylates Acetaminophen Plasma/Serum Alcohol Crossmatch 12/21/19 12/21/19 12/21/19 14:54 17:27 23:49 WBC RBC Hgb Hct MCH RDW Plt Count Lymph % (Auto) [place] % (Auto) [place] # Baso # Seg Neutrophils % Seg Neuts % (Manual) Lymphocytes % (Manual) Monocytes % (Manual) Seg Neutrophils # Seg Neutrophils # Man Lymphocytes # (Manual) Monocytes # (Manual) Eosinophils # (Manual) Basophils # (Manual) PT INR APTT ABG pH ABG pO2 ABG HCO3 ABG O2 Saturation ABG Base Excess ABG Hemoglobin Oxyhemoglobin Sodium Potassium Chloride Carbon Dioxide BUN Creatinine Glucose POC Glucose 145 H 127 H Lactic Acid Calcium Ionized Calcium Phosphorus Magnesium Total Bilirubin AST ALT Alkaline Phosphatase Ammonia Total Creatine Kinase CK-MB (CK-2) CK-MB (CK-2) Rel Index Total Protein Albumin Urine WBC (Auto) Vancomycin Trough Salicylates Acetaminophen Plasma/Serum Alcohol Crossmatch See Detail 12/22/19 12/22/19 12/22/19 04:43 05:56 08:40 WBC RBC Hgb Hct MCH RDW Plt Count Lymph % (Auto) [place] % (Auto) [place] # Baso # Seg Neutrophils % Seg Neuts % (Manual) Lymphocytes % (Manual) Monocytes % (Manual) Seg Neutrophils # Seg Neutrophils # Man Lymphocytes # (Manual) Monocytes # (Manual) Eosinophils # (Manual) Basophils # (Manual) PT INR APTT ABG pH ABG pO2 75.6 L ABG HCO3 ABG O2 Saturation ABG Base Excess -2.6 L ABG Hemoglobin 6.8 L Oxyhemoglobin 94.6 L Sodium Potassium Chloride Carbon Dioxide 17 L BUN 60 H Creatinine 1.4 H Glucose 126 H POC Glucose 153 H Lactic Acid Calcium Ionized Calcium Phosphorus Magnesium Total Bilirubin AST ALT Alkaline Phosphatase Ammonia Total Creatine Kinase CK-MB (CK-2) CK-MB (CK-2) Rel Index Total Protein Albumin Urine WBC (Auto) Vancomycin Trough Salicylates Acetaminophen Plasma/Serum Alcohol Crossmatch 12/22/19 12/22/19 12/23/19 12:07 17:49 04:30 WBC 22.4 H RBC 2.68 L Hgb 7.6 L Hct 22.9 L MCH RDW 19.9 H Plt Count 998 H Lymph % (Auto) [place] % (Auto) [place] # Baso # Seg Neutrophils % Seg Neuts % (Manual) 88.0 H Lymphocytes % (Manual) 2.0 L Monocytes % (Manual) 9.0 H Seg Neutrophils # Seg Neutrophils # Man 19.7 H Lymphocytes # (Manual) 0.4 L Monocytes # (Manual) 2.0 H Eosinophils # (Manual) Basophils # (Manual) PT INR APTT ABG pH ABG pO2 ABG HCO3 ABG O2 Saturation ABG Base Excess ABG Hemoglobin Oxyhemoglobin Sodium Potassium Chloride Carbon Dioxide BUN Creatinine Glucose POC Glucose 140 H 116 H Lactic Acid Calcium Ionized Calcium Phosphorus Magnesium Total Bilirubin AST ALT Alkaline Phosphatase Ammonia Total Creatine Kinase CK-MB (CK-2) CK-MB (CK-2) Rel Index Total Protein Albumin Urine WBC (Auto) Vancomycin Trough Salicylates Acetaminophen Plasma/Serum Alcohol Crossmatch 12/23/19 12/23/19 12/23/19 04:30 12:00 18:06 WBC RBC Hgb Hct MCH RDW Plt Count Lymph % (Auto) [place] % (Auto) [place] # Baso # Seg Neutrophils % Seg Neuts % (Manual) Lymphocytes % (Manual) Monocytes % (Manual) Seg Neutrophils # Seg Neutrophils # Man Lymphocytes # (Manual) Monocytes # (Manual) Eosinophils # (Manual) Basophils # (Manual) PT INR APTT ABG pH ABG pO2 ABG HCO3 ABG O2 Saturation ABG Base Excess ABG Hemoglobin Oxyhemoglobin Sodium Potassium 5.2 H Chloride Carbon Dioxide 21 L BUN 69 H Creatinine 1.5 H Glucose 117 H POC Glucose 128 H 138 H Lactic Acid Calcium Ionized Calcium Phosphorus Magnesium Total Bilirubin AST ALT Alkaline Phosphatase Ammonia Total Creatine Kinase CK-MB (CK-2) CK-MB (CK-2) Rel Index Total Protein Albumin Urine WBC (Auto) Vancomycin Trough Salicylates Acetaminophen Plasma/Serum Alcohol Crossmatch 12/23/19 12/24/19 12/24/19 23:46 04:31 05:08 WBC RBC Hgb Hct MCH RDW Plt Count Lymph % (Auto) [place] % (Auto) [place] # Baso # Seg Neutrophils % Seg Neuts % (Manual) Lymphocytes % (Manual) Monocytes % (Manual) Seg Neutrophils # Seg Neutrophils # Man Lymphocytes # (Manual) Monocytes # (Manual) Eosinophils # (Manual) Basophils # (Manual) PT INR APTT ABG pH ABG pO2 ABG HCO3 ABG O2 Saturation ABG Base Excess ABG Hemoglobin Oxyhemoglobin Sodium Potassium 5.3 H Chloride 107.6 H Carbon Dioxide 20 L BUN 72 H Creatinine 1.6 H Glucose 120 H POC Glucose 120 H 140 H Lactic Acid Calcium Ionized Calcium Phosphorus Magnesium Total Bilirubin AST ALT Alkaline Phosphatase Ammonia Total Creatine Kinase CK-MB (CK-2) CK-MB (CK-2) Rel Index Total Protein Albumin Urine WBC (Auto) Vancomycin Trough Salicylates Acetaminophen Plasma/Serum Alcohol Crossmatch 12/24/19 12/24/19 12/25/19 11:58 17:49 03:47 WBC 36.2 H RBC 2.92 L Hgb 8.4 L Hct 26.1 L MCH RDW 20.2 H Plt Count 942 H Lymph % (Auto) [place] % (Auto) [place] # Baso # Seg Neutrophils % Seg Neuts % (Manual) 97.5 H Lymphocytes % (Manual) 1.0 L Monocytes % (Manual) Seg Neutrophils # Seg Neutrophils # Man 35.3 H Lymphocytes # (Manual) 0.4 L Monocytes # (Manual) Eosinophils # (Manual) Basophils # (Manual) PT INR APTT ABG pH ABG pO2 ABG HCO3 ABG O2 Saturation ABG Base Excess ABG Hemoglobin Oxyhemoglobin Sodium Potassium Chloride Carbon Dioxide BUN Creatinine Glucose POC Glucose 146 H 131 H Lactic Acid Calcium Ionized Calcium Phosphorus Magnesium Total Bilirubin AST ALT Alkaline Phosphatase Ammonia Total Creatine Kinase CK-MB (CK-2) CK-MB (CK-2) Rel Index Total Protein Albumin Urine WBC (Auto) Vancomycin Trough Salicylates Acetaminophen Plasma/Serum Alcohol Crossmatch 12/25/19 12/25/19 12/25/19 03:47 05:30 12:23 WBC RBC Hgb Hct MCH RDW Plt Count Lymph % (Auto) [place] % (Auto) [place] # Baso # Seg Neutrophils % Seg Neuts % (Manual) Lymphocytes % (Manual) Monocytes % (Manual) Seg Neutrophils # Seg Neutrophils # Man Lymphocytes # (Manual) Monocytes # (Manual) Eosinophils # (Manual) Basophils # (Manual) PT INR APTT ABG pH ABG pO2 ABG HCO3 ABG O2 Saturation ABG Base Excess ABG Hemoglobin Oxyhemoglobin Sodium Potassium Chloride Carbon Dioxide 15 L BUN 70 H Creatinine 1.7 H Glucose 153 H POC Glucose 169 H 135 H Lactic Acid Calcium Ionized Calcium Phosphorus Magnesium Total Bilirubin AST ALT Alkaline Phosphatase Ammonia Total Creatine Kinase CK-MB (CK-2) CK-MB (CK-2) Rel Index Total Protein Albumin Urine WBC (Auto) Vancomycin Trough Salicylates Acetaminophen Plasma/Serum Alcohol Crossmatch 12/25/19 12/25/19 12/26/19 17:37 23:29 09:47 WBC 22.1 H RBC 2.83 L Hgb 7.9 L Hct 25.5 L MCH RDW 20.0 H Plt Count 894 H Lymph % (Auto) [place] % (Auto) [place] # Baso # Seg Neutrophils % Seg Neuts % (Manual) Lymphocytes % (Manual) Monocytes % (Manual) Seg Neutrophils # Seg Neutrophils # Man Lymphocytes # (Manual) Monocytes # (Manual) Eosinophils # (Manual) Basophils # (Manual) PT INR APTT ABG pH ABG pO2 ABG HCO3 ABG O2 Saturation ABG Base Excess ABG Hemoglobin Oxyhemoglobin Sodium Potassium Chloride Carbon Dioxide BUN Creatinine Glucose POC Glucose 120 H 140 H Lactic Acid Calcium Ionized Calcium Phosphorus Magnesium Total Bilirubin AST ALT Alkaline Phosphatase Ammonia Total Creatine Kinase CK-MB (CK-2) CK-MB (CK-2) Rel Index Total Protein Albumin Urine WBC (Auto) Vancomycin Trough Salicylates Acetaminophen Plasma/Serum Alcohol Crossmatch 12/26/19 12/26/19 12/26/19 09:47 11:46 17:52 WBC RBC Hgb Hct MCH RDW Plt Count Lymph % (Auto) [place] % (Auto) [place] # Baso # Seg Neutrophils % Seg Neuts % (Manual) Lymphocytes % (Manual) Monocytes % (Manual) Seg Neutrophils # Seg Neutrophils # Man Lymphocytes # (Manual) Monocytes # (Manual) Eosinophils # (Manual) Basophils # (Manual) PT INR APTT ABG pH ABG pO2 ABG HCO3 ABG O2 Saturation ABG Base Excess ABG Hemoglobin Oxyhemoglobin Sodium Potassium Chloride Carbon Dioxide 18 L BUN 65 H Creatinine 1.4 H Glucose 132 H POC Glucose 110 H 145 H Lactic Acid Calcium Ionized Calcium Phosphorus Magnesium Total Bilirubin AST ALT Alkaline Phosphatase Ammonia Total Creatine Kinase CK-MB (CK-2) CK-MB (CK-2) Rel Index Total Protein Albumin Urine WBC (Auto) Vancomycin Trough Salicylates Acetaminophen Plasma/Serum Alcohol Crossmatch 12/27/19 12/27/19 12/27/19 00:01 03:42 03:42 WBC 18.0 H RBC 2.86 L Hgb 8.0 L Hct 25.2 L MCH RDW 19.2 H Plt Count 873 H Lymph % (Auto) 8.4 L [place] % (Auto) 7.5 H [place] # 1.4 H Baso # 0.2 H Seg Neutrophils % 82.2 H Seg Neuts % (Manual) Lymphocytes % (Manual) Monocytes % (Manual) Seg Neutrophils # 14.8 H Seg Neutrophils # Man Lymphocytes # (Manual) Monocytes # (Manual) Eosinophils # (Manual) Basophils # (Manual) PT INR APTT ABG pH ABG pO2 ABG HCO3 ABG O2 Saturation ABG Base Excess ABG Hemoglobin Oxyhemoglobin Sodium Potassium Chloride Carbon Dioxide BUN 73 H Creatinine 1.4 H Glucose 119 H POC Glucose 124 H Lactic Acid Calcium Ionized Calcium Phosphorus Magnesium Total Bilirubin AST ALT Alkaline Phosphatase Ammonia Total Creatine Kinase CK-MB (CK-2) CK-MB (CK-2) Rel Index Total Protein Albumin Urine WBC (Auto) Vancomycin Trough Salicylates Acetaminophen Plasma/Serum Alcohol Crossmatch 12/27/19 12/27/19 12/27/19 05:45 11:45 17:29 WBC RBC Hgb Hct MCH RDW Plt Count Lymph % (Auto) [place] % (Auto) [place] # Baso # Seg Neutrophils % Seg Neuts % (Manual) Lymphocytes % (Manual) Monocytes % (Manual) Seg Neutrophils # Seg Neutrophils # Man Lymphocytes # (Manual) Monocytes # (Manual) Eosinophils # (Manual) Basophils # (Manual) PT INR APTT ABG pH ABG pO2 ABG HCO3 ABG O2 Saturation ABG Base Excess ABG Hemoglobin Oxyhemoglobin Sodium Potassium Chloride Carbon Dioxide BUN Creatinine Glucose POC Glucose 131 H 123 H 134 H Lactic Acid Calcium Ionized Calcium Phosphorus Magnesium Total Bilirubin AST ALT Alkaline Phosphatase Ammonia Total Creatine Kinase CK-MB (CK-2) CK-MB (CK-2) Rel Index Total Protein Albumin Urine WBC (Auto) Vancomycin Trough Salicylates Acetaminophen Plasma/Serum Alcohol Crossmatch 12/28/19 12/28/19 12/28/19 00:12 05:14 11:53 WBC RBC Hgb Hct MCH RDW Plt Count Lymph % (Auto) [place] % (Auto) [place] # Baso # Seg Neutrophils % Seg Neuts % (Manual) Lymphocytes % (Manual) Monocytes % (Manual) Seg Neutrophils # Seg Neutrophils # Man Lymphocytes # (Manual) Monocytes # (Manual) Eosinophils # (Manual) Basophils # (Manual) PT INR APTT ABG pH ABG pO2 ABG HCO3 ABG O2 Saturation ABG Base Excess ABG Hemoglobin Oxyhemoglobin Sodium Potassium Chloride Carbon Dioxide BUN Creatinine Glucose POC Glucose 138 H 130 H 146 H Lactic Acid Calcium Ionized Calcium Phosphorus Magnesium Total Bilirubin AST ALT Alkaline Phosphatase Ammonia Total Creatine Kinase CK-MB (CK-2) CK-MB (CK-2) Rel Index Total Protein Albumin Urine WBC (Auto) Vancomycin Trough Salicylates Acetaminophen Plasma/Serum Alcohol Crossmatch 12/28/19 12/29/19 12/29/19 17:39 00:01 18:11 WBC RBC Hgb Hct MCH RDW Plt Count Lymph % (Auto) [place] % (Auto) [place] # Baso # Seg Neutrophils % Seg Neuts % (Manual) Lymphocytes % (Manual) Monocytes % (Manual) Seg Neutrophils # Seg Neutrophils # Man Lymphocytes # (Manual) Monocytes # (Manual) Eosinophils # (Manual) Basophils # (Manual) PT INR APTT ABG pH ABG pO2 ABG HCO3 ABG O2 Saturation ABG Base Excess ABG Hemoglobin Oxyhemoglobin Sodium Potassium Chloride Carbon Dioxide BUN Creatinine Glucose POC Glucose 117 H 139 H 130 H Lactic Acid Calcium Ionized Calcium Phosphorus Magnesium Total Bilirubin AST ALT Alkaline Phosphatase Ammonia Total Creatine Kinase CK-MB (CK-2) CK-MB (CK-2) Rel Index Total Protein Albumin Urine WBC (Auto) Vancomycin Trough Salicylates Acetaminophen Plasma/Serum Alcohol Crossmatch 12/29/19 12/30/19 12/30/19 23:09 00:02 01:06 WBC 16.7 H RBC 2.91 L Hgb 8.2 L Hct 25.4 L MCH RDW 18.7 H Plt Count 708 H Lymph % (Auto) 9.4 L [place] % (Auto) [place] # 0.9 H Baso # Seg Neutrophils % 83.5 H Seg Neuts % (Manual) Lymphocytes % (Manual) Monocytes % (Manual) Seg Neutrophils # 14.0 H Seg Neutrophils # Man Lymphocytes # (Manual) Monocytes # (Manual) Eosinophils # (Manual) Basophils # (Manual) PT INR APTT ABG pH ABG pO2 ABG HCO3 ABG O2 Saturation ABG Base Excess ABG Hemoglobin Oxyhemoglobin Sodium Potassium Chloride Carbon Dioxide BUN Creatinine Glucose POC Glucose 120 H 114 H Lactic Acid Calcium Ionized Calcium Phosphorus Magnesium Total Bilirubin AST ALT Alkaline Phosphatase Ammonia Total Creatine Kinase CK-MB (CK-2) CK-MB (CK-2) Rel Index Total Protein Albumin Urine WBC (Auto) Vancomycin Trough Salicylates Acetaminophen Plasma/Serum Alcohol Crossmatch 12/30/19 12/30/19 12/30/19 01:06 04:23 05:18 WBC RBC Hgb Hct MCH RDW Plt Count Lymph % (Auto) [place] % (Auto) [place] # Baso # Seg Neutrophils % Seg Neuts % (Manual) Lymphocytes % (Manual) Monocytes % (Manual) Seg Neutrophils # Seg Neutrophils # Man Lymphocytes # (Manual) Monocytes # (Manual) Eosinophils # (Manual) Basophils # (Manual) PT INR APTT ABG pH ABG pO2 ABG HCO3 ABG O2 Saturation ABG Base Excess ABG Hemoglobin 8.3 L Oxyhemoglobin Sodium Potassium Chloride Carbon Dioxide BUN 70 H Creatinine Glucose 122 H POC Glucose 130 H Lactic Acid Calcium Ionized Calcium Phosphorus Magnesium Total Bilirubin AST ALT Alkaline Phosphatase Ammonia Total Creatine Kinase CK-MB (CK-2) CK-MB (CK-2) Rel Index Total Protein Albumin Urine WBC (Auto) Vancomycin Trough Salicylates Acetaminophen Plasma/Serum Alcohol Crossmatch 12/30/19 12/30/19 12/30/19 05:40 12:17 17:43 WBC RBC Hgb Hct MCH RDW Plt Count Lymph % (Auto) [place] % (Auto) [place] # Baso # Seg Neutrophils % Seg Neuts % (Manual) Lymphocytes % (Manual) Monocytes % (Manual) Seg Neutrophils # Seg Neutrophils # Man Lymphocytes # (Manual) Monocytes # (Manual) Eosinophils # (Manual) Basophils # (Manual) PT INR APTT ABG pH ABG pO2 ABG HCO3 ABG O2 Saturation ABG Base Excess ABG Hemoglobin Oxyhemoglobin Sodium Potassium Chloride Carbon Dioxide BUN Creatinine Glucose POC Glucose 135 H 132 H 118 H Lactic Acid Calcium Ionized Calcium Phosphorus Magnesium Total Bilirubin AST ALT Alkaline Phosphatase Ammonia Total Creatine Kinase CK-MB (CK-2) CK-MB (CK-2) Rel Index Total Protein Albumin Urine WBC (Auto) Vancomycin Trough Salicylates Acetaminophen Plasma/Serum Alcohol Crossmatch 12/30/19 12/31/19 12/31/19 23:29 05:19 17:50 WBC RBC Hgb Hct MCH RDW Plt Count Lymph % (Auto) [place] % (Auto) [place] # Baso # Seg Neutrophils % Seg Neuts % (Manual) Lymphocytes % (Manual) Monocytes % (Manual) Seg Neutrophils # Seg Neutrophils # Man Lymphocytes # (Manual) Monocytes # (Manual) Eosinophils # (Manual) Basophils # (Manual) PT INR APTT ABG pH ABG pO2 ABG HCO3 ABG O2 Saturation ABG Base Excess ABG Hemoglobin Oxyhemoglobin Sodium Potassium Chloride Carbon Dioxide BUN Creatinine Glucose POC Glucose 114 H 109 H 116 H Lactic Acid Calcium Ionized Calcium Phosphorus Magnesium Total Bilirubin AST ALT Alkaline Phosphatase Ammonia Total Creatine Kinase CK-MB (CK-2) CK-MB (CK-2) Rel Index Total Protein Albumin Urine WBC (Auto) Vancomycin Trough Salicylates Acetaminophen Plasma/Serum Alcohol Crossmatch 01/01/20 01/01/20 01/01/20 00:10 05:19 12:02 WBC RBC Hgb Hct MCH RDW Plt Count Lymph % (Auto) [place] % (Auto) [place] # Baso # Seg Neutrophils % Seg Neuts % (Manual) Lymphocytes % (Manual) Monocytes % (Manual) Seg Neutrophils # Seg Neutrophils # Man Lymphocytes # (Manual) Monocytes # (Manual) Eosinophils # (Manual) Basophils # (Manual) PT INR APTT ABG pH ABG pO2 ABG HCO3 ABG O2 Saturation ABG Base Excess ABG Hemoglobin Oxyhemoglobin Sodium Potassium Chloride Carbon Dioxide BUN Creatinine Glucose POC Glucose 131 H 122 H 136 H Lactic Acid Calcium Ionized Calcium Phosphorus Magnesium Total Bilirubin AST ALT Alkaline Phosphatase Ammonia Total Creatine Kinase CK-MB (CK-2) CK-MB (CK-2) Rel Index Total Protein Albumin Urine WBC (Auto) Vancomycin Trough Salicylates Acetaminophen Plasma/Serum Alcohol Crossmatch 01/02/20 01/02/20 01/02/20 00:24 05:36 11:41 WBC RBC Hgb Hct MCH RDW Plt Count Lymph % (Auto) [place] % (Auto) [place] # Baso # Seg Neutrophils % Seg Neuts % (Manual) Lymphocytes % (Manual) Monocytes % (Manual) Seg Neutrophils # Seg Neutrophils # Man Lymphocytes # (Manual) Monocytes # (Manual) Eosinophils # (Manual) Basophils # (Manual) PT INR APTT ABG pH ABG pO2 ABG HCO3 ABG O2 Saturation ABG Base Excess ABG Hemoglobin Oxyhemoglobin Sodium Potassium Chloride Carbon Dioxide BUN Creatinine Glucose POC Glucose 119 H 109 H 125 H Lactic Acid Calcium Ionized Calcium Phosphorus Magnesium Total Bilirubin AST ALT Alkaline Phosphatase Ammonia Total Creatine Kinase CK-MB (CK-2) CK-MB (CK-2) Rel Index Total Protein Albumin Urine WBC (Auto) Vancomycin Trough Salicylates Acetaminophen Plasma/Serum Alcohol Crossmatch 01/02/20 01/03/20 01/03/20 17:49 05:29 12:13 WBC RBC Hgb Hct MCH RDW Plt Count Lymph % (Auto) [place] % (Auto) [place] # Baso # Seg Neutrophils % Seg Neuts % (Manual) Lymphocytes % (Manual) Monocytes % (Manual) Seg Neutrophils # Seg Neutrophils # Man Lymphocytes # (Manual) Monocytes # (Manual) Eosinophils # (Manual) Basophils # (Manual) PT INR APTT ABG pH ABG pO2 ABG HCO3 ABG O2 Saturation ABG Base Excess ABG Hemoglobin Oxyhemoglobin Sodium Potassium Chloride Carbon Dioxide BUN Creatinine Glucose POC Glucose 130 H 132 H 113 H Lactic Acid Calcium Ionized Calcium Phosphorus Magnesium Total Bilirubin AST ALT Alkaline Phosphatase Ammonia Total Creatine Kinase CK-MB (CK-2) CK-MB (CK-2) Rel Index Total Protein Albumin Urine WBC (Auto) Vancomycin Trough Salicylates Acetaminophen Plasma/Serum Alcohol Crossmatch 01/03/20 01/04/20 01/04/20 17:32 00:19 05:26 WBC RBC Hgb Hct MCH RDW Plt Count Lymph % (Auto) [place] % (Auto) [place] # Baso # Seg Neutrophils % Seg Neuts % (Manual) Lymphocytes % (Manual) Monocytes % (Manual) Seg Neutrophils # Seg Neutrophils # Man Lymphocytes # (Manual) Monocytes # (Manual) Eosinophils # (Manual) Basophils # (Manual) PT INR APTT ABG pH ABG pO2 ABG HCO3 ABG O2 Saturation ABG Base Excess ABG Hemoglobin Oxyhemoglobin Sodium Potassium Chloride Carbon Dioxide BUN Creatinine Glucose POC Glucose 127 H 141 H 129 H Lactic Acid Calcium Ionized Calcium Phosphorus Magnesium Total Bilirubin AST ALT Alkaline Phosphatase Ammonia Total Creatine Kinase CK-MB (CK-2) CK-MB (CK-2) Rel Index Total Protein Albumin Urine WBC (Auto) Vancomycin Trough Salicylates Acetaminophen Plasma/Serum Alcohol Crossmatch 01/04/20 01/04/20 01/05/20 11:39 17:29 05:22 WBC RBC Hgb Hct MCH RDW Plt Count Lymph % (Auto) [place] % (Auto) [place] # Baso # Seg Neutrophils % Seg Neuts % (Manual) Lymphocytes % (Manual) Monocytes % (Manual) Seg Neutrophils # Seg Neutrophils # Man Lymphocytes # (Manual) Monocytes # (Manual) Eosinophils # (Manual) Basophils # (Manual) PT INR APTT ABG pH ABG pO2 ABG HCO3 ABG O2 Saturation ABG Base Excess ABG Hemoglobin Oxyhemoglobin Sodium Potassium Chloride Carbon Dioxide BUN Creatinine Glucose POC Glucose 167 H 132 H 121 H Lactic Acid Calcium Ionized Calcium Phosphorus Magnesium Total Bilirubin AST ALT Alkaline Phosphatase Ammonia Total Creatine Kinase CK-MB (CK-2) CK-MB (CK-2) Rel Index Total Protein Albumin Urine WBC (Auto) Vancomycin Trough Salicylates Acetaminophen Plasma/Serum Alcohol Crossmatch 01/05/20 01/05/20 01/05/20 12:25 17:40 18:06 WBC RBC Hgb Hct MCH RDW Plt Count Lymph % (Auto) [place] % (Auto) [place] # Baso # Seg Neutrophils % Seg Neuts % (Manual) Lymphocytes % (Manual) Monocytes % (Manual) Seg Neutrophils # Seg Neutrophils # Man Lymphocytes # (Manual) Monocytes # (Manual) Eosinophils # (Manual) Basophils # (Manual) PT INR APTT ABG pH 7.472 H ABG pO2 99.2 H ABG HCO3 ABG O2 Saturation ABG Base Excess ABG Hemoglobin 7.8 L Oxyhemoglobin Sodium Potassium Chloride Carbon Dioxide BUN Creatinine Glucose POC Glucose 106 H 110 H Lactic Acid Calcium Ionized Calcium Phosphorus Magnesium Total Bilirubin AST ALT Alkaline Phosphatase Ammonia Total Creatine Kinase CK-MB (CK-2) CK-MB (CK-2) Rel Index Total Protein Albumin Urine WBC (Auto) Vancomycin Trough Salicylates Acetaminophen Plasma/Serum Alcohol Crossmatch 01/06/20 01/06/20 01/06/20 00:11 05:16 11:30 WBC RBC Hgb Hct MCH RDW Plt Count Lymph % (Auto) [place] % (Auto) [place] # Baso # Seg Neutrophils % Seg Neuts % (Manual) Lymphocytes % (Manual) Monocytes % (Manual) Seg Neutrophils # Seg Neutrophils # Man Lymphocytes # (Manual) Monocytes # (Manual) Eosinophils # (Manual) Basophils # (Manual) PT INR APTT ABG pH ABG pO2 ABG HCO3 ABG O2 Saturation ABG Base Excess ABG Hemoglobin Oxyhemoglobin Sodium Potassium Chloride Carbon Dioxide BUN Creatinine Glucose POC Glucose 108 H 124 H 125 H Lactic Acid Calcium Ionized Calcium Phosphorus Magnesium Total Bilirubin AST ALT Alkaline Phosphatase Ammonia Total Creatine Kinase CK-MB (CK-2) CK-MB (CK-2) Rel Index Total Protein Albumin Urine WBC (Auto) Vancomycin Trough Salicylates Acetaminophen Plasma/Serum Alcohol Crossmatch 01/06/20 01/06/20 01/07/20 17:53 23:51 04:12 WBC 16.5 H RBC 3.29 L Hgb 9.3 L Hct 28.1 L MCH RDW 18.2 H Plt Count 526 H Lymph % (Auto) 8.4 L [place] % (Auto) [place] # 1.0 H Baso # Seg Neutrophils % 84.4 H Seg Neuts % (Manual) Lymphocytes % (Manual) Monocytes % (Manual) Seg Neutrophils # 13.9 H Seg Neutrophils # Man Lymphocytes # (Manual) Monocytes # (Manual) Eosinophils # (Manual) Basophils # (Manual) PT INR APTT ABG pH ABG pO2 ABG HCO3 ABG O2 Saturation ABG Base Excess ABG Hemoglobin Oxyhemoglobin Sodium Potassium Chloride Carbon Dioxide BUN Creatinine Glucose POC Glucose 166 H 128 H Lactic Acid Calcium Ionized Calcium Phosphorus Magnesium Total Bilirubin AST ALT Alkaline Phosphatase Ammonia Total Creatine Kinase CK-MB (CK-2) CK-MB (CK-2) Rel Index Total Protein Albumin Urine WBC (Auto) Vancomycin Trough Salicylates Acetaminophen Plasma/Serum Alcohol Crossmatch 01/07/20 01/07/20 01/07/20 04:12 04:45 11:51 WBC RBC Hgb Hct MCH RDW Plt Count Lymph % (Auto) [place] % (Auto) [place] # Baso # Seg Neutrophils % Seg Neuts % (Manual) Lymphocytes % (Manual) Monocytes % (Manual) Seg Neutrophils # Seg Neutrophils # Man Lymphocytes # (Manual) Monocytes # (Manual) Eosinophils # (Manual) Basophils # (Manual) PT INR APTT ABG pH ABG pO2 ABG HCO3 ABG O2 Saturation ABG Base Excess ABG Hemoglobin Oxyhemoglobin Sodium 136 L Potassium Chloride Carbon Dioxide 21 L BUN 44 H Creatinine 0.6 L Glucose 124 H POC Glucose 134 H 138 H Lactic Acid Calcium Ionized Calcium Phosphorus Magnesium Total Bilirubin AST ALT Alkaline Phosphatase Ammonia Total Creatine Kinase CK-MB (CK-2) CK-MB (CK-2) Rel Index Total Protein Albumin Urine WBC (Auto) Vancomycin Trough Salicylates Acetaminophen Plasma/Serum Alcohol Crossmatch 01/07/20 01/08/20 01/08/20 17:36 00:33 05:29 WBC RBC Hgb Hct MCH RDW Plt Count Lymph % (Auto) [place] % (Auto) [place] # Baso # Seg Neutrophils % Seg Neuts % (Manual) Lymphocytes % (Manual) Monocytes % (Manual) Seg Neutrophils # Seg Neutrophils # Man Lymphocytes # (Manual) Monocytes # (Manual) Eosinophils # (Manual) Basophils # (Manual) PT INR APTT ABG pH ABG pO2 ABG HCO3 ABG O2 Saturation ABG Base Excess ABG Hemoglobin Oxyhemoglobin Sodium Potassium Chloride Carbon Dioxide BUN Creatinine Glucose POC Glucose 128 H 119 H 124 H Lactic Acid Calcium Ionized Calcium Phosphorus Magnesium Total Bilirubin AST ALT Alkaline Phosphatase Ammonia Total Creatine Kinase CK-MB (CK-2) CK-MB (CK-2) Rel Index Total Protein Albumin Urine WBC (Auto) Vancomycin Trough Salicylates Acetaminophen Plasma/Serum Alcohol Crossmatch 01/08/20 01/08/20 01/08/20 12:51 20:25 23:22 WBC RBC Hgb Hct MCH RDW Plt Count Lymph % (Auto) [place] % (Auto) [place] # Baso # Seg Neutrophils % Seg Neuts % (Manual) Lymphocytes % (Manual) Monocytes % (Manual) Seg Neutrophils # Seg Neutrophils # Man Lymphocytes # (Manual) Monocytes # (Manual) Eosinophils # (Manual) Basophils # (Manual) PT INR APTT ABG pH ABG pO2 132.2 H ABG HCO3 ABG O2 Saturation ABG Base Excess ABG Hemoglobin Oxyhemoglobin Sodium Potassium Chloride Carbon Dioxide BUN Creatinine Glucose POC Glucose 128 H 127 H Lactic Acid Calcium Ionized Calcium Phosphorus Magnesium Total Bilirubin AST ALT Alkaline Phosphatase Ammonia Total Creatine Kinase CK-MB (CK-2) CK-MB (CK-2) Rel Index Total Protein Albumin Urine WBC (Auto) Vancomycin Trough Salicylates Acetaminophen Plasma/Serum Alcohol Crossmatch 01/09/20 01/09/20 01/09/20 05:48 08:51 11:29 WBC RBC Hgb Hct MCH RDW Plt Count Lymph % (Auto) [place] % (Auto) [place] # Baso # Seg Neutrophils % Seg Neuts % (Manual) Lymphocytes % (Manual) Monocytes % (Manual) Seg Neutrophils # Seg Neutrophils # Man Lymphocytes # (Manual) Monocytes # (Manual) Eosinophils # (Manual) Basophils # (Manual) PT INR APTT ABG pH ABG pO2 94.3 H ABG HCO3 ABG O2 Saturation ABG Base Excess ABG Hemoglobin 9.5 L Oxyhemoglobin Sodium Potassium Chloride Carbon Dioxide BUN Creatinine Glucose POC Glucose 120 H 112 H Lactic Acid Calcium Ionized Calcium Phosphorus Magnesium Total Bilirubin AST ALT Alkaline Phosphatase Ammonia Total Creatine Kinase CK-MB (CK-2) CK-MB (CK-2) Rel Index Total Protein Albumin Urine WBC (Auto) Vancomycin Trough Salicylates Acetaminophen Plasma/Serum Alcohol Crossmatch 01/09/20 01/10/20 01/10/20 17:57 05:17 12:28 WBC RBC Hgb Hct MCH RDW Plt Count Lymph % (Auto) [place] % (Auto) [place] # Baso # Seg Neutrophils % Seg Neuts % (Manual) Lymphocytes % (Manual) Monocytes % (Manual) Seg Neutrophils # Seg Neutrophils # Man Lymphocytes # (Manual) Monocytes # (Manual) Eosinophils # (Manual) Basophils # (Manual) PT INR APTT ABG pH ABG pO2 ABG HCO3 ABG O2 Saturation ABG Base Excess ABG Hemoglobin Oxyhemoglobin Sodium Potassium Chloride Carbon Dioxide BUN Creatinine Glucose POC Glucose 122 H 115 H 116 H Lactic Acid Calcium Ionized Calcium Phosphorus Magnesium Total Bilirubin AST ALT Alkaline Phosphatase Ammonia Total Creatine Kinase CK-MB (CK-2) CK-MB (CK-2) Rel Index Total Protein Albumin Urine WBC (Auto) Vancomycin Trough Salicylates Acetaminophen Plasma/Serum Alcohol Crossmatch 01/10/20 01/10/20 01/11/20 18:25 23:47 06:05 WBC RBC Hgb Hct MCH RDW Plt Count Lymph % (Auto) [place] % (Auto) [place] # Baso # Seg Neutrophils % Seg Neuts % (Manual) Lymphocytes % (Manual) Monocytes % (Manual) Seg Neutrophils # Seg Neutrophils # Man Lymphocytes # (Manual) Monocytes # (Manual) Eosinophils # (Manual) Basophils # (Manual) PT INR APTT ABG pH ABG pO2 ABG HCO3 ABG O2 Saturation ABG Base Excess ABG Hemoglobin Oxyhemoglobin Sodium Potassium Chloride Carbon Dioxide BUN Creatinine Glucose POC Glucose 123 H 115 H 151 H Lactic Acid Calcium Ionized Calcium Phosphorus Magnesium Total Bilirubin AST ALT Alkaline Phosphatase Ammonia Total Creatine Kinase CK-MB (CK-2) CK-MB (CK-2) Rel Index Total Protein Albumin Urine WBC (Auto) Vancomycin Trough Salicylates Acetaminophen Plasma/Serum Alcohol Crossmatch 01/11/20 01/11/20 01/11/20 07:00 07:00 12:27 WBC 11.8 H RBC 3.40 L Hgb 9.4 L Hct 29.3 L MCH RDW 18.1 H Plt Count 549 H Lymph % (Auto) [place] % (Auto) 9.1 H [place] # 1.1 H Baso # Seg Neutrophils % 73.3 H Seg Neuts % (Manual) Lymphocytes % (Manual) Monocytes % (Manual) Seg Neutrophils # 8.7 H Seg Neutrophils # Man Lymphocytes # (Manual) Monocytes # (Manual) Eosinophils # (Manual) Basophils # (Manual) PT INR APTT ABG pH ABG pO2 ABG HCO3 ABG O2 Saturation ABG Base Excess ABG Hemoglobin Oxyhemoglobin Sodium 134 L Potassium Chloride 97.7 L Carbon Dioxide 21 L BUN 38 H Creatinine 0.5 L Glucose 168 H POC Glucose 117 H Lactic Acid Calcium 10.5 H Ionized Calcium Phosphorus Magnesium Total Bilirubin AST ALT Alkaline Phosphatase Ammonia Total Creatine Kinase CK-MB (CK-2) CK-MB (CK-2) Rel Index Total Protein Albumin Urine WBC (Auto) Vancomycin Trough Salicylates Acetaminophen Plasma/Serum Alcohol Crossmatch 01/11/20 01/12/20 01/12/20 18:19 00:53 05:24 WBC RBC Hgb Hct MCH RDW Plt Count Lymph % (Auto) [place] % (Auto) [place] # Baso # Seg Neutrophils % Seg Neuts % (Manual) Lymphocytes % (Manual) Monocytes % (Manual) Seg Neutrophils # Seg Neutrophils # Man Lymphocytes # (Manual) Monocytes # (Manual) Eosinophils # (Manual) Basophils # (Manual) PT INR APTT ABG pH ABG pO2 ABG HCO3 ABG O2 Saturation ABG Base Excess ABG Hemoglobin Oxyhemoglobin Sodium Potassium Chloride Carbon Dioxide BUN Creatinine Glucose POC Glucose 126 H 126 H 128 H Lactic Acid Calcium Ionized Calcium Phosphorus Magnesium Total Bilirubin AST ALT Alkaline Phosphatase Ammonia Total Creatine Kinase CK-MB (CK-2) CK-MB (CK-2) Rel Index Total Protein Albumin Urine WBC (Auto) Vancomycin Trough Salicylates Acetaminophen Plasma/Serum Alcohol Crossmatch 01/12/20 01/12/20 01/13/20 13:39 18:02 00:27 WBC RBC Hgb Hct MCH RDW Plt Count Lymph % (Auto) [place] % (Auto) [place] # Baso # Seg Neutrophils % Seg Neuts % (Manual) Lymphocytes % (Manual) Monocytes % (Manual) Seg Neutrophils # Seg Neutrophils # Man Lymphocytes # (Manual) Monocytes # (Manual) Eosinophils # (Manual) Basophils # (Manual) PT INR APTT ABG pH ABG pO2 ABG HCO3 ABG O2 Saturation ABG Base Excess ABG Hemoglobin Oxyhemoglobin Sodium Potassium Chloride Carbon Dioxide BUN Creatinine Glucose POC Glucose 146 H 125 H 131 H Lactic Acid Calcium Ionized Calcium Phosphorus Magnesium Total Bilirubin AST ALT Alkaline Phosphatase Ammonia Total Creatine Kinase CK-MB (CK-2) CK-MB (CK-2) Rel Index Total Protein Albumin Urine WBC (Auto) Vancomycin Trough Salicylates Acetaminophen Plasma/Serum Alcohol Crossmatch 01/13/20 01/13/20 01/13/20 05:44 11:54 17:18 WBC RBC Hgb Hct MCH RDW Plt Count Lymph % (Auto) [place] % (Auto) [place] # Baso # Seg Neutrophils % Seg Neuts % (Manual) Lymphocytes % (Manual) Monocytes % (Manual) Seg Neutrophils # Seg Neutrophils # Man Lymphocytes # (Manual) Monocytes # (Manual) Eosinophils # (Manual) Basophils # (Manual) PT INR APTT ABG pH ABG pO2 ABG HCO3 ABG O2 Saturation ABG Base Excess ABG Hemoglobin Oxyhemoglobin Sodium Potassium Chloride Carbon Dioxide BUN Creatinine Glucose POC Glucose 148 H 140 H 130 H Lactic Acid Calcium Ionized Calcium Phosphorus Magnesium Total Bilirubin AST ALT Alkaline Phosphatase Ammonia Total Creatine Kinase CK-MB (CK-2) CK-MB (CK-2) Rel Index Total Protein Albumin Urine WBC (Auto) Vancomycin Trough Salicylates Acetaminophen Plasma/Serum Alcohol Crossmatch 01/14/20 01/14/20 01/14/20 00:16 05:45 12:19 WBC RBC Hgb Hct MCH RDW Plt Count Lymph % (Auto) [place] % (Auto) [place] # Baso # Seg Neutrophils % Seg Neuts % (Manual) Lymphocytes % (Manual) Monocytes % (Manual) Seg Neutrophils # Seg Neutrophils # Man Lymphocytes # (Manual) Monocytes # (Manual) Eosinophils # (Manual) Basophils # (Manual) PT INR APTT ABG pH ABG pO2 ABG HCO3 ABG O2 Saturation ABG Base Excess ABG Hemoglobin Oxyhemoglobin Sodium Potassium Chloride Carbon Dioxide BUN Creatinine Glucose POC Glucose 125 H 146 H 147 H Lactic Acid Calcium Ionized Calcium Phosphorus Magnesium Total Bilirubin AST ALT Alkaline Phosphatase Ammonia Total Creatine Kinase CK-MB (CK-2) CK-MB (CK-2) Rel Index Total Protein Albumin Urine WBC (Auto) Vancomycin Trough Salicylates Acetaminophen Plasma/Serum Alcohol Crossmatch 01/14/20 01/14/20 01/15/20 18:10 23:54 05:14 WBC RBC Hgb Hct MCH RDW Plt Count Lymph % (Auto) [place] % (Auto) [place] # Baso # Seg Neutrophils % Seg Neuts % (Manual) Lymphocytes % (Manual) Monocytes % (Manual) Seg Neutrophils # Seg Neutrophils # Man Lymphocytes # (Manual) Monocytes # (Manual) Eosinophils # (Manual) Basophils # (Manual) PT INR APTT ABG pH ABG pO2 ABG HCO3 ABG O2 Saturation ABG Base Excess ABG Hemoglobin Oxyhemoglobin Sodium Potassium Chloride Carbon Dioxide BUN Creatinine Glucose POC Glucose 136 H 109 H 111 H Lactic Acid Calcium Ionized Calcium Phosphorus Magnesium Total Bilirubin AST ALT Alkaline Phosphatase Ammonia Total Creatine Kinase CK-MB (CK-2) CK-MB (CK-2) Rel Index Total Protein Albumin Urine WBC (Auto) Vancomycin Trough Salicylates Acetaminophen Plasma/Serum Alcohol Crossmatch 01/15/20 01/15/20 01/16/20 12:34 23:25 05:06 WBC RBC Hgb Hct MCH RDW Plt Count Lymph % (Auto) [place] % (Auto) [place] # Baso # Seg Neutrophils % Seg Neuts % (Manual) Lymphocytes % (Manual) Monocytes % (Manual) Seg Neutrophils # Seg Neutrophils # Man Lymphocytes # (Manual) Monocytes # (Manual) Eosinophils # (Manual) Basophils # (Manual) PT INR APTT ABG pH ABG pO2 ABG HCO3 ABG O2 Saturation ABG Base Excess ABG Hemoglobin Oxyhemoglobin Sodium Potassium Chloride Carbon Dioxide BUN Creatinine Glucose POC Glucose 131 H 120 H 121 H Lactic Acid Calcium Ionized Calcium Phosphorus Magnesium Total Bilirubin AST ALT Alkaline Phosphatase Ammonia Total Creatine Kinase CK-MB (CK-2) CK-MB (CK-2) Rel Index Total Protein Albumin Urine WBC (Auto) Vancomycin Trough Salicylates Acetaminophen Plasma/Serum Alcohol Crossmatch 01/16/20 01/16/20 01/17/20 12:15 23:46 05:32 WBC 13.6 H RBC 3.27 L Hgb 9.3 L Hct 28.5 L MCH RDW 17.0 H Plt Count 490 H Lymph % (Auto) 13.1 L [place] % (Auto) [place] # 1.0 H Baso # Seg Neutrophils % 77.5 H Seg Neuts % (Manual) Lymphocytes % (Manual) Monocytes % (Manual) Seg Neutrophils # 10.5 H Seg Neutrophils # Man Lymphocytes # (Manual) Monocytes # (Manual) Eosinophils # (Manual) Basophils # (Manual) PT INR APTT ABG pH ABG pO2 ABG HCO3 ABG O2 Saturation ABG Base Excess ABG Hemoglobin Oxyhemoglobin Sodium Potassium Chloride Carbon Dioxide BUN Creatinine Glucose POC Glucose 152 H 107 H Lactic Acid Calcium Ionized Calcium Phosphorus Magnesium Total Bilirubin AST ALT Alkaline Phosphatase Ammonia Total Creatine Kinase CK-MB (CK-2) CK-MB (CK-2) Rel Index Total Protein Albumin Urine WBC (Auto) Vancomycin Trough Salicylates Acetaminophen Plasma/Serum Alcohol Crossmatch 01/17/20 01/17/20 01/17/20 06:47 12:16 17:21 WBC RBC Hgb Hct MCH RDW Plt Count Lymph % (Auto) [place] % (Auto) [place] # Baso # Seg Neutrophils % Seg Neuts % (Manual) Lymphocytes % (Manual) Monocytes % (Manual) Seg Neutrophils # Seg Neutrophils # Man Lymphocytes # (Manual) Monocytes # (Manual) Eosinophils # (Manual) Basophils # (Manual) PT INR APTT ABG pH ABG pO2 ABG HCO3 ABG O2 Saturation ABG Base Excess ABG Hemoglobin Oxyhemoglobin Sodium Potassium Chloride Carbon Dioxide BUN Creatinine Glucose POC Glucose 112 H 145 H 150 H Lactic Acid Calcium Ionized Calcium Phosphorus Magnesium Total Bilirubin AST ALT Alkaline Phosphatase Ammonia Total Creatine Kinase CK-MB (CK-2) CK-MB (CK-2) Rel Index Total Protein Albumin Urine WBC (Auto) Vancomycin Trough Salicylates Acetaminophen Plasma/Serum Alcohol Crossmatch 01/17/20 01/18/20 01/18/20 23:34 05:47 12:43 WBC RBC Hgb Hct MCH RDW Plt Count Lymph % (Auto) [place] % (Auto) [place] # Baso # Seg Neutrophils % Seg Neuts % (Manual) Lymphocytes % (Manual) Monocytes % (Manual) Seg Neutrophils # Seg Neutrophils # Man Lymphocytes # (Manual) Monocytes # (Manual) Eosinophils # (Manual) Basophils # (Manual) PT INR APTT ABG pH ABG pO2 ABG HCO3 ABG O2 Saturation ABG Base Excess ABG Hemoglobin Oxyhemoglobin Sodium Potassium Chloride Carbon Dioxide BUN Creatinine Glucose POC Glucose 160 H 130 H 124 H Lactic Acid Calcium Ionized Calcium Phosphorus Magnesium Total Bilirubin AST ALT Alkaline Phosphatase Ammonia Total Creatine Kinase CK-MB (CK-2) CK-MB (CK-2) Rel Index Total Protein Albumin Urine WBC (Auto) Vancomycin Trough Salicylates Acetaminophen Plasma/Serum Alcohol Crossmatch 01/18/20 01/19/20 01/19/20 18:26 00:14 06:24 WBC RBC Hgb Hct MCH RDW Plt Count Lymph % (Auto) [place] % (Auto) [place] # Baso # Seg Neutrophils % Seg Neuts % (Manual) Lymphocytes % (Manual) Monocytes % (Manual) Seg Neutrophils # Seg Neutrophils # Man Lymphocytes # (Manual) Monocytes # (Manual) Eosinophils # (Manual) Basophils # (Manual) PT INR APTT ABG pH ABG pO2 ABG HCO3 ABG O2 Saturation ABG Base Excess ABG Hemoglobin Oxyhemoglobin Sodium Potassium Chloride Carbon Dioxide BUN Creatinine Glucose POC Glucose 119 H 114 H 144 H Lactic Acid Calcium Ionized Calcium Phosphorus Magnesium Total Bilirubin AST ALT Alkaline Phosphatase Ammonia Total Creatine Kinase CK-MB (CK-2) CK-MB (CK-2) Rel Index Total Protein Albumin Urine WBC (Auto) Vancomycin Trough Salicylates Acetaminophen Plasma/Serum Alcohol Crossmatch 01/19/20 01/19/20 01/20/20 12:24 17:50 12:06 WBC RBC Hgb Hct MCH RDW Plt Count Lymph % (Auto) [place] % (Auto) [place] # Baso # Seg Neutrophils % Seg Neuts % (Manual) Lymphocytes % (Manual) Monocytes % (Manual) Seg Neutrophils # Seg Neutrophils # Man Lymphocytes # (Manual) Monocytes # (Manual) Eosinophils # (Manual) Basophils # (Manual) PT INR APTT ABG pH ABG pO2 ABG HCO3 ABG O2 Saturation ABG Base Excess ABG Hemoglobin Oxyhemoglobin Sodium Potassium Chloride Carbon Dioxide BUN Creatinine Glucose POC Glucose 132 H 144 H 135 H Lactic Acid Calcium Ionized Calcium Phosphorus Magnesium Total Bilirubin AST ALT Alkaline Phosphatase Ammonia Total Creatine Kinase CK-MB (CK-2) CK-MB (CK-2) Rel Index Total Protein Albumin Urine WBC (Auto) Vancomycin Trough Salicylates Acetaminophen Plasma/Serum Alcohol Crossmatch 01/21/20 01/21/20 01/21/20 05:46 13:02 23:49 WBC RBC Hgb Hct MCH RDW Plt Count Lymph % (Auto) [place] % (Auto) [place] # Baso # Seg Neutrophils % Seg Neuts % (Manual) Lymphocytes % (Manual) Monocytes % (Manual) Seg Neutrophils # Seg Neutrophils # Man Lymphocytes # (Manual) Monocytes # (Manual) Eosinophils # (Manual) Basophils # (Manual) PT INR APTT ABG pH ABG pO2 ABG HCO3 ABG O2 Saturation ABG Base Excess ABG Hemoglobin Oxyhemoglobin Sodium Potassium Chloride Carbon Dioxide BUN Creatinine Glucose POC Glucose 114 H 136 H 120 H Lactic Acid Calcium Ionized Calcium Phosphorus Magnesium Total Bilirubin AST ALT Alkaline Phosphatase Ammonia Total Creatine Kinase CK-MB (CK-2) CK-MB (CK-2) Rel Index Total Protein Albumin Urine WBC (Auto) Vancomycin Trough Salicylates Acetaminophen Plasma/Serum Alcohol Crossmatch 01/22/20 01/22/20 01/22/20 05:41 11:44 16:31 WBC RBC Hgb Hct MCH RDW Plt Count Lymph % (Auto) [place] % (Auto) [place] # Baso # Seg Neutrophils % Seg Neuts % (Manual) Lymphocytes % (Manual) Monocytes % (Manual) Seg Neutrophils # Seg Neutrophils # Man Lymphocytes # (Manual) Monocytes # (Manual) Eosinophils # (Manual) Basophils # (Manual) PT INR APTT ABG pH ABG pO2 ABG HCO3 ABG O2 Saturation ABG Base Excess ABG Hemoglobin Oxyhemoglobin Sodium Potassium Chloride Carbon Dioxide BUN Creatinine Glucose POC Glucose 124 H 173 H 111 H Lactic Acid Calcium Ionized Calcium Phosphorus Magnesium Total Bilirubin AST ALT Alkaline Phosphatase Ammonia Total Creatine Kinase CK-MB (CK-2) CK-MB (CK-2) Rel Index Total Protein Albumin Urine WBC (Auto) Vancomycin Trough Salicylates Acetaminophen Plasma/Serum Alcohol Crossmatch 01/22/20 01/23/20 01/23/20 23:25 05:15 12:15 WBC RBC Hgb Hct MCH RDW Plt Count Lymph % (Auto) [place] % (Auto) [place] # Baso # Seg Neutrophils % Seg Neuts % (Manual) Lymphocytes % (Manual) Monocytes % (Manual) Seg Neutrophils # Seg Neutrophils # Man Lymphocytes # (Manual) Monocytes # (Manual) Eosinophils # (Manual) Basophils # (Manual) PT INR APTT ABG pH ABG pO2 ABG HCO3 ABG O2 Saturation ABG Base Excess ABG Hemoglobin Oxyhemoglobin Sodium Potassium Chloride Carbon Dioxide BUN Creatinine Glucose POC Glucose 134 H 117 H 129 H Lactic Acid Calcium Ionized Calcium Phosphorus Magnesium Total Bilirubin AST ALT Alkaline Phosphatase Ammonia Total Creatine Kinase CK-MB (CK-2) CK-MB (CK-2) Rel Index Total Protein Albumin Urine WBC (Auto) Vancomycin Trough Salicylates Acetaminophen Plasma/Serum Alcohol Crossmatch 01/23/20 01/23/20 01/23/20 16:58 21:17 23:47 WBC RBC Hgb Hct MCH RDW Plt Count Lymph % (Auto) [place] % (Auto) [place] # Baso # Seg Neutrophils % Seg Neuts % (Manual) Lymphocytes % (Manual) Monocytes % (Manual) Seg Neutrophils # Seg Neutrophils # Man Lymphocytes # (Manual) Monocytes # (Manual) Eosinophils # (Manual) Basophils # (Manual) PT INR APTT ABG pH ABG pO2 ABG HCO3 ABG O2 Saturation ABG Base Excess ABG Hemoglobin Oxyhemoglobin Sodium Potassium Chloride Carbon Dioxide BUN Creatinine Glucose POC Glucose 156 H 185 H 156 H Lactic Acid Calcium Ionized Calcium Phosphorus Magnesium Total Bilirubin AST ALT Alkaline Phosphatase Ammonia Total Creatine Kinase CK-MB (CK-2) CK-MB (CK-2) Rel Index Total Protein Albumin Urine WBC (Auto) Vancomycin Trough Salicylates Acetaminophen Plasma/Serum Alcohol Crossmatch 01/24/20 01/24/20 01/24/20 04:47 04:47 05:59 WBC 17.8 H RBC 3.60 L Hgb Hct MCH RDW 16.2 H Plt Count 688 H Lymph % (Auto) 11.8 L [place] % (Auto) 7.5 H [place] # 1.3 H Baso # Seg Neutrophils % 79.9 H Seg Neuts % (Manual) Lymphocytes % (Manual) Monocytes % (Manual) Seg Neutrophils # 14.2 H Seg Neutrophils # Man Lymphocytes # (Manual) Monocytes # (Manual) Eosinophils # (Manual) Basophils # (Manual) PT INR APTT ABG pH ABG pO2 ABG HCO3 ABG O2 Saturation ABG Base Excess ABG Hemoglobin Oxyhemoglobin Sodium 131 L Potassium Chloride 91.2 L Carbon Dioxide BUN 22 H Creatinine 0.3 L Glucose 123 H POC Glucose 147 H Lactic Acid Calcium 10.9 H Ionized Calcium Phosphorus Magnesium Total Bilirubin AST ALT Alkaline Phosphatase Ammonia Total Creatine Kinase CK-MB (CK-2) CK-MB (CK-2) Rel Index Total Protein Albumin Urine WBC (Auto) Vancomycin Trough Salicylates Acetaminophen Plasma/Serum Alcohol Crossmatch 01/24/20 01/24/20 01/25/20 11:47 16:45 00:18 WBC RBC Hgb Hct MCH RDW Plt Count Lymph % (Auto) [place] % (Auto) [place] # Baso # Seg Neutrophils % Seg Neuts % (Manual) Lymphocytes % (Manual) Monocytes % (Manual) Seg Neutrophils # Seg Neutrophils # Man Lymphocytes # (Manual) Monocytes # (Manual) Eosinophils # (Manual) Basophils # (Manual) PT INR APTT ABG pH ABG pO2 ABG HCO3 ABG O2 Saturation ABG Base Excess ABG Hemoglobin Oxyhemoglobin Sodium Potassium Chloride Carbon Dioxide BUN Creatinine Glucose POC Glucose 114 H 108 H 119 H Lactic Acid Calcium Ionized Calcium Phosphorus Magnesium Total Bilirubin AST ALT Alkaline Phosphatase Ammonia Total Creatine Kinase CK-MB (CK-2) CK-MB (CK-2) Rel Index Total Protein Albumin Urine WBC (Auto) Vancomycin Trough Salicylates Acetaminophen Plasma/Serum Alcohol Crossmatch 01/25/20 01/25/20 01/25/20 07:18 11:58 16:56 WBC RBC Hgb Hct MCH RDW Plt Count Lymph % (Auto) [place] % (Auto) [place] # Baso # Seg Neutrophils % Seg Neuts % (Manual) Lymphocytes % (Manual) Monocytes % (Manual) Seg Neutrophils # Seg Neutrophils # Man Lymphocytes # (Manual) Monocytes # (Manual) Eosinophils # (Manual) Basophils # (Manual) PT INR APTT ABG pH ABG pO2 ABG HCO3 ABG O2 Saturation ABG Base Excess ABG Hemoglobin Oxyhemoglobin Sodium Potassium Chloride Carbon Dioxide BUN Creatinine Glucose POC Glucose 136 H 136 H 147 H Lactic Acid Calcium Ionized Calcium Phosphorus Magnesium Total Bilirubin AST ALT Alkaline Phosphatase Ammonia Total Creatine Kinase CK-MB (CK-2) CK-MB (CK-2) Rel Index Total Protein Albumin Urine WBC (Auto) Vancomycin Trough Salicylates Acetaminophen Plasma/Serum Alcohol Crossmatch 01/26/20 01/26/20 01/26/20 00:29 05:59 05:59 WBC 12.8 H RBC Hgb Hct MCH RDW 16.4 H Plt Count 743 H Lymph % (Auto) [place] % (Auto) [place] # 0.9 H Baso # Seg Neutrophils % 76.2 H Seg Neuts % (Manual) Lymphocytes % (Manual) Monocytes % (Manual) Seg Neutrophils # 9.8 H Seg Neutrophils # Man Lymphocytes # (Manual) Monocytes # (Manual) Eosinophils # (Manual) Basophils # (Manual) PT INR APTT ABG pH ABG pO2 ABG HCO3 ABG O2 Saturation ABG Base Excess ABG Hemoglobin Oxyhemoglobin Sodium 132 L Potassium Chloride 90.9 L Carbon Dioxide BUN 23 H Creatinine 0.4 L Glucose 122 H POC Glucose 107 H Lactic Acid Calcium 11.0 H Ionized Calcium Phosphorus Magnesium Total Bilirubin AST ALT Alkaline Phosphatase Ammonia Total Creatine Kinase CK-MB (CK-2) CK-MB (CK-2) Rel Index Total Protein Albumin Urine WBC (Auto) Vancomycin Trough Salicylates Acetaminophen Plasma/Serum Alcohol Crossmatch 01/26/20 01/26/20 01/26/20 06:27 12:06 16:49 WBC RBC Hgb Hct MCH RDW Plt Count Lymph % (Auto) [place] % (Auto) [place] # Baso # Seg Neutrophils % Seg Neuts % (Manual) Lymphocytes % (Manual) Monocytes % (Manual) Seg Neutrophils # Seg Neutrophils # Man Lymphocytes # (Manual) Monocytes # (Manual) Eosinophils # (Manual) Basophils # (Manual) PT INR APTT ABG pH ABG pO2 ABG HCO3 ABG O2 Saturation ABG Base Excess ABG Hemoglobin Oxyhemoglobin Sodium Potassium Chloride Carbon Dioxide BUN Creatinine Glucose POC Glucose 132 H 132 H 110 H Lactic Acid Calcium Ionized Calcium Phosphorus Magnesium Total Bilirubin AST ALT Alkaline Phosphatase Ammonia Total Creatine Kinase CK-MB (CK-2) CK-MB (CK-2) Rel Index Total Protein Albumin Urine WBC (Auto) Vancomycin Trough Salicylates Acetaminophen Plasma/Serum Alcohol Crossmatch 01/27/20 01/27/20 01/27/20 00:08 11:49 16:24 WBC RBC Hgb Hct MCH RDW Plt Count Lymph % (Auto) [place] % (Auto) [place] # Baso # Seg Neutrophils % Seg Neuts % (Manual) Lymphocytes % (Manual) Monocytes % (Manual) Seg Neutrophils # Seg Neutrophils # Man Lymphocytes # (Manual) Monocytes # (Manual) Eosinophils # (Manual) Basophils # (Manual) PT INR APTT ABG pH ABG pO2 ABG HCO3 ABG O2 Saturation ABG Base Excess ABG Hemoglobin Oxyhemoglobin Sodium Potassium Chloride Carbon Dioxide BUN Creatinine Glucose POC Glucose 107 H 119 H 129 H Lactic Acid Calcium Ionized Calcium Phosphorus Magnesium Total Bilirubin AST ALT Alkaline Phosphatase Ammonia Total Creatine Kinase CK-MB (CK-2) CK-MB (CK-2) Rel Index Total Protein Albumin Urine WBC (Auto) Vancomycin Trough Salicylates Acetaminophen Plasma/Serum Alcohol Crossmatch 01/27/20 01/28/20 01/28/20 18:28 01:00 06:22 WBC RBC Hgb Hct MCH RDW Plt Count Lymph % (Auto) [place] % (Auto) [place] # Baso # Seg Neutrophils % Seg Neuts % (Manual) Lymphocytes % (Manual) Monocytes % (Manual) Seg Neutrophils # Seg Neutrophils # Man Lymphocytes # (Manual) Monocytes # (Manual) Eosinophils # (Manual) Basophils # (Manual) PT INR APTT ABG pH ABG pO2 ABG HCO3 ABG O2 Saturation ABG Base Excess ABG Hemoglobin Oxyhemoglobin Sodium Potassium Chloride Carbon Dioxide BUN Creatinine Glucose POC Glucose 126 H 121 H 114 H Lactic Acid Calcium Ionized Calcium Phosphorus Magnesium Total Bilirubin AST ALT Alkaline Phosphatase Ammonia Total Creatine Kinase CK-MB (CK-2) CK-MB (CK-2) Rel Index Total Protein Albumin Urine WBC (Auto) Vancomycin Trough Salicylates Acetaminophen Plasma/Serum Alcohol Crossmatch 01/28/20 01/28/20 01/29/20 11:47 18:00 00:05 WBC RBC Hgb Hct MCH RDW Plt Count Lymph % (Auto) [place] % (Auto) [place] # Baso # Seg Neutrophils % Seg Neuts % (Manual) Lymphocytes % (Manual) Monocytes % (Manual) Seg Neutrophils # Seg Neutrophils # Man Lymphocytes # (Manual) Monocytes # (Manual) Eosinophils # (Manual) Basophils # (Manual) PT INR APTT ABG pH ABG pO2 ABG HCO3 ABG O2 Saturation ABG Base Excess ABG Hemoglobin Oxyhemoglobin Sodium Potassium Chloride Carbon Dioxide BUN Creatinine Glucose POC Glucose 106 H 117 H 127 H Lactic Acid Calcium Ionized Calcium Phosphorus Magnesium Total Bilirubin AST ALT Alkaline Phosphatase Ammonia Total Creatine Kinase CK-MB (CK-2) CK-MB (CK-2) Rel Index Total Protein Albumin Urine WBC (Auto) Vancomycin Trough Salicylates Acetaminophen Plasma/Serum Alcohol Crossmatch 01/29/20 01/29/20 01/29/20 06:04 11:40 16:38 WBC RBC Hgb Hct MCH RDW Plt Count Lymph % (Auto) [place] % (Auto) [place] # Baso # Seg Neutrophils % Seg Neuts % (Manual) Lymphocytes % (Manual) Monocytes % (Manual) Seg Neutrophils # Seg Neutrophils # Man Lymphocytes # (Manual) Monocytes # (Manual) Eosinophils # (Manual) Basophils # (Manual) PT INR APTT ABG pH ABG pO2 ABG HCO3 ABG O2 Saturation ABG Base Excess ABG Hemoglobin Oxyhemoglobin Sodium Potassium Chloride Carbon Dioxide BUN Creatinine Glucose POC Glucose 147 H 139 H 143 H Lactic Acid Calcium Ionized Calcium Phosphorus Magnesium Total Bilirubin AST ALT Alkaline Phosphatase Ammonia Total Creatine Kinase CK-MB (CK-2) CK-MB (CK-2) Rel Index Total Protein Albumin Urine WBC (Auto) Vancomycin Trough Salicylates Acetaminophen Plasma/Serum Alcohol Crossmatch 01/29/20 01/30/20 01/30/20 23:46 06:43 12:07 WBC RBC Hgb Hct MCH RDW Plt Count Lymph % (Auto) [place] % (Auto) [place] # Baso # Seg Neutrophils % Seg Neuts % (Manual) Lymphocytes % (Manual) Monocytes % (Manual) Seg Neutrophils # Seg Neutrophils # Man Lymphocytes # (Manual) Monocytes # (Manual) Eosinophils # (Manual) Basophils # (Manual) PT INR APTT ABG pH ABG pO2 ABG HCO3 ABG O2 Saturation ABG Base Excess ABG Hemoglobin Oxyhemoglobin Sodium Potassium Chloride Carbon Dioxide BUN Creatinine Glucose POC Glucose 122 H 122 H 134 H Lactic Acid Calcium Ionized Calcium Phosphorus Magnesium Total Bilirubin AST ALT Alkaline Phosphatase Ammonia Total Creatine Kinase CK-MB (CK-2) CK-MB (CK-2) Rel Index Total Protein Albumin Urine WBC (Auto) Vancomycin Trough Salicylates Acetaminophen Plasma/Serum Alcohol Crossmatch 01/30/20 01/31/20 01/31/20 17:59 00:52 05:54 WBC RBC Hgb Hct MCH RDW Plt Count Lymph % (Auto) [place] % (Auto) [place] # Baso # Seg Neutrophils % Seg Neuts % (Manual) Lymphocytes % (Manual) Monocytes % (Manual) Seg Neutrophils # Seg Neutrophils # Man Lymphocytes # (Manual) Monocytes # (Manual) Eosinophils # (Manual) Basophils # (Manual) PT INR APTT ABG pH ABG pO2 ABG HCO3 ABG O2 Saturation ABG Base Excess ABG Hemoglobin Oxyhemoglobin Sodium Potassium Chloride Carbon Dioxide BUN Creatinine Glucose POC Glucose 116 H 127 H 127 H Lactic Acid Calcium Ionized Calcium Phosphorus Magnesium Total Bilirubin AST ALT Alkaline Phosphatase Ammonia Total Creatine Kinase CK-MB (CK-2) CK-MB (CK-2) Rel Index Total Protein Albumin Urine WBC (Auto) Vancomycin Trough Salicylates Acetaminophen Plasma/Serum Alcohol Crossmatch 01/31/20 02/01/20 02/01/20 12:20 00:48 12:21 WBC RBC Hgb Hct MCH RDW Plt Count Lymph % (Auto) [place] % (Auto) [place] # Baso # Seg Neutrophils % Seg Neuts % (Manual) Lymphocytes % (Manual) Monocytes % (Manual) Seg Neutrophils # Seg Neutrophils # Man Lymphocytes # (Manual) Monocytes # (Manual) Eosinophils # (Manual) Basophils # (Manual) PT INR APTT ABG pH ABG pO2 ABG HCO3 ABG O2 Saturation ABG Base Excess ABG Hemoglobin Oxyhemoglobin Sodium Potassium Chloride Carbon Dioxide BUN Creatinine Glucose POC Glucose 126 H 154 H 123 H Lactic Acid Calcium Ionized Calcium Phosphorus Magnesium Total Bilirubin AST ALT Alkaline Phosphatase Ammonia Total Creatine Kinase CK-MB (CK-2) CK-MB (CK-2) Rel Index Total Protein Albumin Urine WBC (Auto) Vancomycin Trough Salicylates Acetaminophen Plasma/Serum Alcohol Crossmatch 02/01/20 02/02/20 02/02/20 23:58 06:08 11:50 WBC RBC Hgb Hct MCH RDW Plt Count Lymph % (Auto) [place] % (Auto) [place] # Baso # Seg Neutrophils % Seg Neuts % (Manual) Lymphocytes % (Manual) Monocytes % (Manual) Seg Neutrophils # Seg Neutrophils # Man Lymphocytes # (Manual) Monocytes # (Manual) Eosinophils # (Manual) Basophils # (Manual) PT INR APTT ABG pH ABG pO2 ABG HCO3 ABG O2 Saturation ABG Base Excess ABG Hemoglobin Oxyhemoglobin Sodium Potassium Chloride Carbon Dioxide BUN Creatinine Glucose POC Glucose 125 H 144 H 131 H Lactic Acid Calcium Ionized Calcium Phosphorus Magnesium Total Bilirubin AST ALT Alkaline Phosphatase Ammonia Total Creatine Kinase CK-MB (CK-2) CK-MB (CK-2) Rel Index Total Protein Albumin Urine WBC (Auto) Vancomycin Trough Salicylates Acetaminophen Plasma/Serum Alcohol Crossmatch 02/02/20 02/03/20 02/03/20 17:53 00:14 05:47 WBC RBC Hgb Hct MCH RDW Plt Count Lymph % (Auto) [place] % (Auto) [place] # Baso # Seg Neutrophils % Seg Neuts % (Manual) Lymphocytes % (Manual) Monocytes % (Manual) Seg Neutrophils # Seg Neutrophils # Man Lymphocytes # (Manual) Monocytes # (Manual) Eosinophils # (Manual) Basophils # (Manual) PT INR APTT ABG pH ABG pO2 ABG HCO3 ABG O2 Saturation ABG Base Excess ABG Hemoglobin Oxyhemoglobin Sodium Potassium Chloride Carbon Dioxide BUN Creatinine Glucose POC Glucose 108 H 122 H 118 H Lactic Acid Calcium Ionized Calcium Phosphorus Magnesium Total Bilirubin AST ALT Alkaline Phosphatase Ammonia Total Creatine Kinase CK-MB (CK-2) CK-MB (CK-2) Rel Index Total Protein Albumin Urine WBC (Auto) Vancomycin Trough Salicylates Acetaminophen Plasma/Serum Alcohol Crossmatch 02/03/20 02/03/20 02/03/20 05:59 05:59 11:49 WBC RBC 3.48 L Hgb Hct 29.9 L MCH RDW 16.2 H Plt Count 707 H Lymph % (Auto) [place] % (Auto) 9.3 H [place] # 0.9 H Baso # Seg Neutrophils % Seg Neuts % (Manual) Lymphocytes % (Manual) Monocytes % (Manual) Seg Neutrophils # Seg Neutrophils # Man Lymphocytes # (Manual) Monocytes # (Manual) Eosinophils # (Manual) Basophils # (Manual) PT INR APTT ABG pH ABG pO2 ABG HCO3 ABG O2 Saturation ABG Base Excess ABG Hemoglobin Oxyhemoglobin Sodium 136 L Potassium Chloride 93.4 L Carbon Dioxide BUN 20 H Creatinine 0.5 L Glucose 101 H POC Glucose 133 H Lactic Acid Calcium 10.8 H Ionized Calcium Phosphorus Magnesium Total Bilirubin AST ALT Alkaline Phosphatase Ammonia Total Creatine Kinase CK-MB (CK-2) CK-MB (CK-2) Rel Index Total Protein Albumin Urine WBC (Auto) Vancomycin Trough Salicylates Acetaminophen Plasma/Serum Alcohol Crossmatch 02/03/20 02/04/20 02/04/20 23:19 05:37 23:56 WBC RBC Hgb Hct MCH RDW Plt Count Lymph % (Auto) [place] % (Auto) [place] # Baso # Seg Neutrophils % Seg Neuts % (Manual) Lymphocytes % (Manual) Monocytes % (Manual) Seg Neutrophils # Seg Neutrophils # Man Lymphocytes # (Manual) Monocytes # (Manual) Eosinophils # (Manual) Basophils # (Manual) PT INR APTT ABG pH ABG pO2 ABG HCO3 ABG O2 Saturation ABG Base Excess ABG Hemoglobin Oxyhemoglobin Sodium Potassium Chloride Carbon Dioxide BUN Creatinine Glucose POC Glucose 135 H 108 H 158 H Lactic Acid Calcium Ionized Calcium Phosphorus Magnesium Total Bilirubin AST ALT Alkaline Phosphatase Ammonia Total Creatine Kinase CK-MB (CK-2) CK-MB (CK-2) Rel Index Total Protein Albumin Urine WBC (Auto) Vancomycin Trough Salicylates Acetaminophen Plasma/Serum Alcohol Crossmatch 02/05/20 02/05/20 02/06/20 05:33 23:24 05:50 WBC RBC Hgb Hct MCH RDW Plt Count Lymph % (Auto) [place] % (Auto) [place] # Baso # Seg Neutrophils % Seg Neuts % (Manual) Lymphocytes % (Manual) Monocytes % (Manual) Seg Neutrophils # Seg Neutrophils # Man Lymphocytes # (Manual) Monocytes # (Manual) Eosinophils # (Manual) Basophils # (Manual) PT INR APTT ABG pH ABG pO2 ABG HCO3 ABG O2 Saturation ABG Base Excess ABG Hemoglobin Oxyhemoglobin Sodium Potassium Chloride Carbon Dioxide BUN Creatinine Glucose POC Glucose 152 H 158 H 110 H Lactic Acid Calcium Ionized Calcium Phosphorus Magnesium Total Bilirubin AST ALT Alkaline Phosphatase Ammonia Total Creatine Kinase CK-MB (CK-2) CK-MB (CK-2) Rel Index Total Protein Albumin Urine WBC (Auto) Vancomycin Trough Salicylates Acetaminophen Plasma/Serum Alcohol Crossmatch 02/06/20 02/07/20 02/07/20 16:03 00:13 05:27 WBC RBC Hgb Hct MCH RDW Plt Count Lymph % (Auto) [place] % (Auto) [place] # Baso # Seg Neutrophils % Seg Neuts % (Manual) Lymphocytes % (Manual) Monocytes % (Manual) Seg Neutrophils # Seg Neutrophils # Man Lymphocytes # (Manual) Monocytes # (Manual) Eosinophils # (Manual) Basophils # (Manual) PT INR APTT ABG pH ABG pO2 ABG HCO3 ABG O2 Saturation ABG Base Excess ABG Hemoglobin Oxyhemoglobin Sodium Potassium Chloride Carbon Dioxide BUN Creatinine Glucose POC Glucose 130 H 115 H 115 H Lactic Acid Calcium Ionized Calcium Phosphorus Magnesium Total Bilirubin AST ALT Alkaline Phosphatase Ammonia Total Creatine Kinase CK-MB (CK-2) CK-MB (CK-2) Rel Index Total Protein Albumin Urine WBC (Auto) Vancomycin Trough Salicylates Acetaminophen Plasma/Serum Alcohol Crossmatch 02/07/20 02/07/20 02/08/20 11:42 17:23 00:37 WBC RBC Hgb Hct MCH RDW Plt Count Lymph % (Auto) [place] % (Auto) [place] # Baso # Seg Neutrophils % Seg Neuts % (Manual) Lymphocytes % (Manual) Monocytes % (Manual) Seg Neutrophils # Seg Neutrophils # Man Lymphocytes # (Manual) Monocytes # (Manual) Eosinophils # (Manual) Basophils # (Manual) PT INR APTT ABG pH ABG pO2 ABG HCO3 ABG O2 Saturation ABG Base Excess ABG Hemoglobin Oxyhemoglobin Sodium Potassium Chloride Carbon Dioxide BUN Creatinine Glucose POC Glucose 113 H 114 H 136 H Lactic Acid Calcium Ionized Calcium Phosphorus Magnesium Total Bilirubin AST ALT Alkaline Phosphatase Ammonia Total Creatine Kinase CK-MB (CK-2) CK-MB (CK-2) Rel Index Total Protein Albumin Urine WBC (Auto) Vancomycin Trough Salicylates Acetaminophen Plasma/Serum Alcohol Crossmatch 02/08/20 02/08/20 02/08/20 08:52 11:42 17:02 WBC RBC Hgb Hct MCH RDW Plt Count Lymph % (Auto) [place] % (Auto) [place] # Baso # Seg Neutrophils % Seg Neuts % (Manual) Lymphocytes % (Manual) Monocytes % (Manual) Seg Neutrophils # Seg Neutrophils # Man Lymphocytes # (Manual) Monocytes # (Manual) Eosinophils # (Manual) Basophils # (Manual) PT INR APTT ABG pH ABG pO2 ABG HCO3 ABG O2 Saturation ABG Base Excess ABG Hemoglobin Oxyhemoglobin Sodium 136 L Potassium Chloride 95.7 L Carbon Dioxide BUN 21 H Creatinine 0.4 L Glucose POC Glucose 128 H 145 H Lactic Acid Calcium 10.4 H Ionized Calcium Phosphorus Magnesium Total Bilirubin AST ALT Alkaline Phosphatase Ammonia Total Creatine Kinase CK-MB (CK-2) CK-MB (CK-2) Rel Index Total Protein Albumin Urine WBC (Auto) Vancomycin Trough Salicylates Acetaminophen Plasma/Serum Alcohol Crossmatch 02/09/20 01:05 WBC RBC Hgb Hct MCH RDW Plt Count Lymph % (Auto) [place] % (Auto) [place] # Baso # Seg Neutrophils % Seg Neuts % (Manual) Lymphocytes % (Manual) Monocytes % (Manual) Seg Neutrophils # Seg Neutrophils # Man Lymphocytes # (Manual) Monocytes # (Manual) Eosinophils # (Manual) Basophils # (Manual) PT INR APTT ABG pH ABG pO2 ABG HCO3 ABG O2 Saturation ABG Base Excess ABG Hemoglobin Oxyhemoglobin Sodium Potassium Chloride Carbon Dioxide BUN Creatinine Glucose POC Glucose 117 H Lactic Acid Calcium Ionized Calcium Phosphorus Magnesium Total Bilirubin AST ALT Alkaline Phosphatase Ammonia Total Creatine Kinase CK-MB (CK-2) CK-MB (CK-2) Rel Index Total Protein Albumin Urine WBC (Auto) Vancomycin Trough Salicylates Acetaminophen Plasma/Serum Alcohol Crossmatch Allied health notes reviewed: RT
--- NOTE | 2020-02-09 13:08 | Progress Note ---
Assessment and Plan cv Patient assessment and monitoring of vital signs [v]c Documentation [v] Medication orders and management - Patient Problems (1) Seizure disorder Current Visit: Yes Status: Acute Plan to address problem: No focal seizure disorder continue Keppra. Continue Keppra no new changes in management. Patient has not had any further seizures earlier in care. Has been stable. Continue Keppra (2) Alcohol abuse Current Visit: Yes Status: Acute Plan to address problem: History of alcohol abuse. Patient does not have delirium tremors. Requires restraints. (3) Cardiac arrest with successful resuscitation Current Visit: Yes Status: Acute Plan to address problem: Status post cardiorespiratory arrest. . Patient had intact corneal and cough reflex and withdrew lower extremities from pain. Unlikely however any meaningful recovery after extubation. Improved responsiveness still has significant changes consistent with anoxia. No new changes. Unable to get into skilled nurse facility secondary to payer source. Patient scheduled to go to skilled nurse facility this weekend. (4) Elevated LFTs Current Visit: Yes Status: Resolved Plan to address problem: LFTs as resorted to normal. (5) UTI (urinary tract infection) Current Visit: Yes Status: Acute Plan to address problem: Treated and resolved no fever. Pending discharge to assisted facility. (6) HTN (hypertension) Current Visit: No Status: Acute Plan to address problem: Patient continues to have optimal control blood pressure. (7) Alcohol abuse Current Visit: Yes Status: Acute Plan to address problem: Patient off CIWA protocol. Hyperammonia level resolved. Was secondary to EtOH abuse. (8) Acute respiratory failure Current Visit: Yes Status: Acute Plan to address problem: Patient status post intubation PEG tube. Chest clear negative for pulmonary embolism. Awaiting placement. Subjective Principal diagnosis: Ac cardiopulmonary arrest; Ac hypoxemic resp failure; Acute encephalopathy Interval history: Patient day is attempting to follow commands. Difficult to understand secondary to trach site. Patient will follow with as attempt to make needs known able to check her head and states she is not in pain. Scheduled for assisted facility this weekend. Was problems contacting the state. That paperwork is been arranged today. No new events reported overnight. Objective - Constitutional Vitals: Vital Signs - 12hr 02/09/20 02/09/20 02/09/20 02:00 02:28 04:50 Temperature 97.9 F Pulse Rate 104 H Pulse Rate [ Anterior Bilateral Throughout] Pulse Rate [ 115 H Posterior Bilateral Throughout] Respiratory 20 Rate Respiratory Rate [Anterior Bilateral Throughout] Respiratory 20 Rate [Posterior Bilateral Throughout] Blood Pressure 118/76 O2 Sat by Pulse 100 Oximetry O2 Sat by Pulse 98 Oximetry [ Assessment] 02/09/20 02/09/20 02/09/20 08:00 08:29 08:52 Temperature 98.0 F Pulse Rate Pulse Rate [ 108 H Anterior Bilateral Throughout] Pulse Rate [ Posterior Bilateral Throughout] Respiratory 18 20 Rate Respiratory 20 Rate [Anterior Bilateral Throughout] Respiratory Rate [Posterior Bilateral Throughout] Blood Pressure 120/81 O2 Sat by Pulse 100 Oximetry O2 Sat by Pulse 100 Oximetry [ Assessment] 02/09/20 10:00 Temperature Pulse Rate Pulse Rate [ Anterior Bilateral Throughout] Pulse Rate [ Posterior Bilateral Throughout] Respiratory 20 Rate Respiratory Rate [Anterior Bilateral Throughout] Respiratory Rate [Posterior Bilateral Throughout] Blood Pressure O2 Sat by Pulse Oximetry O2 Sat by Pulse Oximetry [ Assessment] General appearance: Present: no acute distress, cachectic - EENT Eyes: PERRL, EOM intact ENT: hearing intact, other (Some secretions around trachea site.) - Respiratory Respiratory effort: normal Respiratory: bilateral: rhonchi - Breasts Breasts: normal - Cardiovascular Rhythm: regular Extremities: pulses intact, No edema, normal color, Full ROM - Musculoskeletal Musculoskeletal: generalized weakness - Neurologic Neurologic: other (Anoxia) - Labs CBC & Chem 7: 02/08/20 07:55 02/08/20 08:52 Labs: Abnormal lab results 02/08/20 02/08/20 02/09/20 Range/Units 11:42 17:02 01:05 POC Glucose 128 H 145 H 117 H (70-105) 02/09/20 Range/Units 11:52 POC Glucose 141 H (70-105) HEART Score - HEART Score Troponin: Troponin T < 0.010 ng/mL (0.00-0.029) 11/22/19 23:27
[2020-02-09] MEDS: QUEtiapine 100 MG TAB FEEDTUBE SCH (21:24)
[2020-02-10] MEDS: ACETYLCYSTEINE 20% 200 MG/1 ML *FOR INHALATION USE INHALATION SCH ×4 (02:06→20:57)
[2020-02-10] MEDS: LEVALBUTEROL 0.63 MG/3 ML NEBU IH SCH ×4 (02:06→20:57)
--- NOTE | 2020-02-10 07:19 | Progress Note ---
Assessment and Plan Assessment and plan: cv Patient assessment and monitoring of vital signs [v]c Documentation [v] Medication orders and management - Patient Problems (1) Seizure disorder Current Visit: Yes Status: Acute Plan to address problem: Seizures appear to be well controlled at this time. No active seizure over the last 72 hours or more. (2) Alcohol abuse Current Visit: Yes Status: Acute Plan to address problem: History of alcohol abuse. Patient does not have delirium tremors. Requires restraints. (3) Cardiac arrest with successful resuscitation Current Visit: Yes Status: Acute Plan to address problem: Status post cardiorespiratory arrest. . Anoxia is better from my initial presentation with her weeks ago. Will be a great candidate for custodial facility. Patient has had success with recovery.. Improved responsiveness still has significant changes consistent with anoxia. No new changes. (4) Elevated LFTs Current Visit: Yes Status: Resolved Plan to address problem: LFTs as resorted to normal. (5) UTI (urinary tract infection) Current Visit: Yes Status: Acute Plan to address problem: UTI treated no longer requiring antibiotic therapy. (6) HTN (hypertension) Current Visit: No Status: Acute Plan to address problem: Patient continues to have optimal control blood pressure. (7) Alcohol abuse Current Visit: Yes Status: Acute Plan to address problem: Patient off CIWA protocol. Hyperammonia level resolved. Was secondary to EtOH abuse. (8) Acute respiratory failure Current Visit: Yes Status: Acute Plan to address problem: Patient status post intubation PEG tube. Chest clear negative for pulmonary embolism. Awaiting placement. History Interval history: Patient follows commands. Denies pain. Paperwork filled out for patient to be transferred to custodial facility. Tentative plan for transfer on Tuesday is a holiday. No new events reported overnight. Hospitalist Physical - Constitutional Vitals: Temp Pulse Resp BP Pulse Ox 97.8 F 69 18 112/68 94 02/10/20 04:00 02/10/20 04:00 02/10/20 04:00 02/10/20 04:00 02/10/20 04:00 General appearance: Present: no acute distress, cachectic - EENT Eyes: Present: PERRL ENT: hearing intact - Neck Neck: Present: supple, normal ROM - Respiratory Respiratory effort: normal Respiratory: bilateral: rhonchi (few) - Cardiovascular Rhythm: regular - Extremities Extremities: no ischemia, pulses intact, No edema - Abdominal General gastrointestinal: soft, non-tender, normal bowel sounds - Integumentary Integumentary: Present: clear, warm, dry - Psychiatric Psychiatric: cooperative - Neurologic Neurologic: focal deficits HEART Score - HEART Score Troponin: Troponin T < 0.010 ng/mL (0.00-0.029) 11/22/19 23:27 Results - Labs CBC & Chem 7: 02/08/20 07:55 02/08/20 08:52 Labs: Laboratory Last Values WBC 9.3 K/mm3 (4.5-11.0) 02/03/20 05:59 RBC 3.48 M/mm3 (3.65-5.03) L 02/03/20 05:59 Hgb 10.7 gm/dl (10.1-14.3) 02/08/20 07:55 Hct 31.7 % (30.3-42.9) 02/08/20 07:55 MCV 86 fl (79-97) 02/03/20 05:59 MCH 29 pg (28-32) 02/03/20 05:59 MCHC 34 % (30-34) 02/03/20 05:59 RDW 16.2 % (13.2-15.2) H 02/03/20 05:59 Plt Count 707 K/mm3 (140-440) H 02/03/20 05:59 Lymph % (Auto) 20.2 % (13.4-35.0) 02/03/20 05:59 [place] % (Auto) 9.3 % (0.0-7.3) H 02/03/20 05:59 Eos % (Auto) 2.5 % (0.0-4.3) 02/03/20 05:59 Baso % (Auto) 0.6 % (0.0-1.8) 02/03/20 05:59 Lymph # 1.9 K/mm3 (1.2-5.4) 02/03/20 05:59 [place] # 0.9 K/mm3 (0.0-0.8) H 02/03/20 05:59 Eos # 0.2 K/mm3 (0.0-0.4) 02/03/20 05:59 Baso # 0.1 K/mm3 (0.0-0.1) 02/03/20 05:59 Add Manual Diff Complete 12/25/19 03:47 Total Counted 200 12/25/19 03:47 Seg Neutrophils % 67.4 % (40.0-70.0) 02/03/20 05:59 Seg Neuts % (Manual) 97.5 % (40.0-70.0) H 12/25/19 03:47 Band Neutrophils % 0 % 12/25/19 03:47 Lymphocytes % (Manual) 1.0 % (13.4-35.0) L 12/25/19 03:47 Reactive Lymphs % (Man) 0 % 12/25/19 03:47 Monocytes % (Manual) 1.5 % (0.0-7.3) 12/25/19 03:47 Eosinophils % (Manual) 0 % (0.0-4.3) 12/25/19 03:47 Basophils % (Manual) 0 % (0.0-1.8) 12/25/19 03:47 Metamyelocytes % 0 % 12/25/19 03:47 Myelocytes % 0 % 12/25/19 03:47 Promyelocytes % 0 % 12/25/19 03:47 Blast Cells % 0 % 12/25/19 03:47 Nucleated RBC % Not Reportable 12/25/19 03:47 Seg Neutrophils # 6.3 K/mm3 (1.8-7.7) 02/03/20 05:59 Seg Neutrophils # Man 35.3 K/mm3 (1.8-7.7) H 12/25/19 03:47 Band Neutrophils # 0.0 K/mm3 12/25/19 03:47 Lymphocytes # (Manual) 0.4 K/mm3 (1.2-5.4) L 12/25/19 03:47 Abs React Lymphs (Man) 0.0 K/mm3 12/25/19 03:47 Monocytes # (Manual) 0.5 K/mm3 (0.0-0.8) 12/25/19 03:47 Eosinophils # (Manual) 0.0 K/mm3 (0.0-0.4) 12/25/19 03:47 Basophils # (Manual) 0.0 K/mm3 (0.0-0.1) 12/25/19 03:47 Metamyelocytes # 0.0 K/mm3 12/25/19 03:47 Myelocytes # 0.0 K/mm3 12/25/19 03:47 Promyelocytes # 0.0 K/mm3 12/25/19 03:47 Blast Cells # 0.0 K/mm3 12/25/19 03:47 Pathologist Review 12/13/19 07:48 WBC Morphology Not Reportable 12/25/19 03:47 Hypersegmented Neuts Not Reportable 12/25/19 03:47 Hyposegmented Neuts Not Reportable 12/25/19 03:47 Hypogranular Neuts Not Reportable 12/25/19 03:47 Smudge Cells Not Reportable 12/25/19 03:47 Toxic Granulation Not Reportable 12/25/19 03:47 Toxic Vacuolation Not Reportable 12/25/19 03:47 Dohle Bodies Not Reportable 12/25/19 03:47 Pelger-Huet Anomaly Not Reportable 12/25/19 03:47 Dominique Rods Not Reportable 12/25/19 03:47 Platelet Estimate Consistent w auto 12/25/19 03:47 Clumped Platelets Not Reportable 12/25/19 03:47 Plt Clumps, EDTA Not Reportable 12/25/19 03:47 Large Platelets Not Reportable 12/25/19 03:47 Giant Platelets Not Reportable 12/25/19 03:47 Platelet Satelliting Not Reportable 12/25/19 03:47 Plt Morphology Comment Not Reportable 12/25/19 03:47 RBC Morphology Not Reportable 12/25/19 03:47 Dimorphic RBCs Not Reportable 12/25/19 03:47 Polychromasia Not Reportable 12/25/19 03:47 Hypochromasia Not Reportable 12/25/19 03:47 Poikilocytosis Not Reportable 12/25/19 03:47 Anisocytosis 1+ 12/25/19 03:47 Microcytosis Not Reportable 12/25/19 03:47 Macrocytosis Not Reportable 12/25/19 03:47 Spherocytes Not Reportable 12/25/19 03:47 Pappenheimer Bodies Not Reportable 12/25/19 03:47 Sickle Cells Not Reportable 12/25/19 03:47 Target Cells Not Reportable 12/25/19 03:47 Tear Drop Cells Not Reportable 12/25/19 03:47 Ovalocytes Not Reportable 12/25/19 03:47 Helmet Cells Not Reportable 12/25/19 03:47 [place] Bodies Not Reportable 12/25/19 03:47 [place] Rings Not Reportable 12/25/19 03:47 Jamshid Cells Not Reportable 12/25/19 03:47 Bite Cells Not Reportable 12/25/19 03:47 Crenated Cell Not Reportable 12/25/19 03:47 Elliptocytes Not Reportable 12/25/19 03:47 Acanthocytes (Spur) Not Reportable 12/25/19 03:47 Rouleaux Not Reportable 12/25/19 03:47 Hemoglobin C Crystals Not Reportable 12/25/19 03:47 Schistocytes Not Reportable 12/25/19 03:47 Malaria parasites Not Reportable 12/25/19 03:47 Gregg Bodies Not Reportable 12/25/19 03:47 Hem Pathologist Commnt No 12/25/19 03:47 PT 17.0 Sec. (12.2-14.9) H 11/23/19 03:47 INR 1.36 (0.87-1.13) H 11/23/19 03:47 APTT 128.2 Sec. (24.2-36.6) H* 11/23/19 03:47 Heparin Anti-Xa Level 0.31 U.I./ml (0.3-0.7) 11/23/19 09:03 ABG pH 7.429 pH Units (7.350-7.450) 01/09/20 08:51 ABG pCO2 39.1 mm Hg 01/09/20 08:51 ABG pO2 94.3 mm Hg (80.0-90.0) H 01/09/20 08:51 ABG HCO3 25.3 mmol/L (20.0-26.0) 01/09/20 08:51 ABG O2 Saturation 97.4 % (95.0-99.0) 01/09/20 08:51 ABG O2 Content 12.9 (0.0-44) 01/09/20 08:51 ABG Base Excess 1.0 mmol/L (-2.0-3.0) 01/09/20 08:51 ABG Hemoglobin 9.5 gm/dl (12.0-16.0) L 01/09/20 08:51 ABG Carboxyhemoglobin 1.3 % (0.0-5.0) 01/09/20 08:51 ABG Methemoglobin 0.4 % (0.0-1.5) 01/09/20 08:51 Oxyhemoglobin 95.7 % (95.0-99.0) 01/09/20 08:51 FiO2 35 % 01/09/20 08:51 Sodium 136 mmol/L (137-145) L 02/08/20 08:52 Potassium 4.3 mmol/L (3.6-5.0) 02/08/20 08:52 Chloride 95.7 mmol/L (98-107) L 02/08/20 08:52 Carbon Dioxide 27 mmol/L (22-30) 02/08/20 08:52 Anion Gap 18 mmol/L 02/08/20 08:52 BUN 21 mg/dL (7-17) H 02/08/20 08:52 Creatinine 0.4 mg/dL (0.7-1.2) L 02/08/20 08:52 Estimated GFR > 60 ml/min 02/08/20 08:52 BUN/Creatinine Ratio 53 % 02/08/20 08:52 Glucose 99 mg/dL (65-100) 02/08/20 08:52 POC Glucose 136 (70-105) H 02/10/20 05:25 Lactic Acid 1.80 mmol/L (0.7-2.0) 11/25/19 05:05 Calcium 10.4 mg/dL (8.4-10.2) H 02/08/20 08:52 Ionized Calcium 4.5 mg/dL (4.8-5.6) L 11/23/19 06:32 Phosphorus 4.20 mg/dL (2.5-4.5) D 11/28/19 08:59 Magnesium 2.30 mg/dL (1.7-2.3) 11/29/19 13:41 Total Bilirubin 0.40 mg/dL (0.1-1.2) 12/13/19 07:48 AST 27 units/L (5-40) 12/13/19 07:48 ALT 26 units/L (7-56) 12/13/19 07:48 Alkaline Phosphatase 316 units/L (35-129) H 12/13/19 07:48 Ammonia 42.0 umol/L (25-60) 11/29/19 13:41 Total Creatine Kinase 139 units/L (30-135) H 11/22/19 23:27 CK-MB (CK-2) 8.3 ng/mL (0.0-4.0) H 11/22/19 23:27 CK-MB (CK-2) Rel Index 5.9 (0-4) H 11/22/19 23:27 Troponin T < 0.010 ng/mL (0.00-0.029) 11/22/19 23:27 Total Protein 6.8 g/dL (6.3-8.2) 12/13/19 07:48 Albumin 2.4 g/dL (3.9-5) L 12/13/19 07:48 Albumin/Globulin Ratio 0.5 % 12/13/19 07:48 Lipase 18 units/L (13-60) 11/23/19 00:34 Procalcitonin 1.09 ng/mL (<0.15) 11/23/19 04:53 Urine Color Yellow (Yellow) 12/16/19 Unknown Urine Turbidity Slightly-cloudy (Clear) 12/16/19 Unknown Urine pH 5.0 (5.0-7.0) 12/16/19 Unknown Ur Specific [place] 1.018 (1.003-1.030) 12/16/19 Unknown Urine Protein 30 mg/dl mg/dL (Negative) 12/16/19 Unknown Urine Glucose (UA) Neg mg/dL (Negative) 12/16/19 Unknown Urine Ketones Neg mg/dL (Negative) 12/16/19 Unknown Urine Blood Sm (Negative) 12/16/19 Unknown Urine Nitrite Neg (Negative) 12/16/19 Unknown Urine Bilirubin Neg (Negative) 12/16/19 Unknown Urine Urobilinogen < 2.0 mg/dL (<2.0) 12/16/19 Unknown Ur Leukocyte Esterase Neg (Negative) 12/16/19 Unknown Urine WBC (Auto) 6.0 /HPF (0.0-6.0) 12/16/19 Unknown Urine RBC (Auto) 9.0 /HPF (0.0-6.0) 12/16/19 Unknown U Epithel Cells (Auto) < 1.0 /HPF (0-13.0) 12/16/19 Unknown Urine Bacteria (Auto) 2+ /HPF (Negative) 11/22/19 23:17 Hyaline Casts 3 /LPF 12/16/19 Unknown Granular Casts 3 /LPF 12/16/19 Unknown Urine Mucus Few /HPF 12/16/19 Unknown Vancomycin Trough 33.8 ug/mL (5.0-20.0) H 12/21/19 08:56 Random Vancomycin 16.2 ug/mL (0-40.0) 12/24/19 04:31 Salicylates < 0.3 mg/dL (2.8-20.0) L 11/22/19 23:27 Urine Opiates Screen Presumptive negative 11/22/19 23:17 Urine Methadone Screen Presumptive negative 11/22/19 23:17 Acetaminophen < 5.0 ug/mL (10.0-30.0) L 11/22/19 23:27 Ur Barbiturates Screen Presumptive negative 11/22/19 23:17 Ur Phencyclidine Scrn Presumptive negative 11/22/19 23:17 Ur Amphetamines Screen Presumptive negative 11/22/19 23:17 U Benzodiazepines Scrn Presumptive negative 11/22/19 23:17 Urine Cocaine Screen Presumptive negative 11/22/19 23:17 U Marijuana (THC) Screen Presumptive negative 11/22/19 23:17 Drugs of Abuse Note Disclamer 11/22/19 23:17 Plasma/Serum Alcohol 0.08 % (0-0.07) H 11/22/19 23:27 Coronavirus (PCR) Negative (Negative) 02/05/20 07:50 Hepatitis A IgM Ab Non-reactive (NonReactive) 11/23/19 01:19 Hep Bs Antigen Non-reactive (Negative) 11/23/19 01:19 Hep B Core IgM Ab Non-reactive (NonReactive) 11/23/19 01:19 Hepatitis C Antibody Non-reactive (NonReactive) 11/23/19 01:19 Blood Type O POSITIVE 12/21/19 14:54 Antibody Screen Negative 12/21/19 14:54 Crossmatch See Detail 12/21/19 14:54 - Diagnostic Impressions Diagnostic Impressions: Echocardiogram 11/23/19 03:58 Transthoracic Echocardiogram Indication: Cardiac arrest BP: 131/89 HR: 115 Conclusions *The study quality is technically difficult. *Global left ventricular wall motion and contractility are within normal limits. *The estimated ejection fraction is 55-60%. *Abnormal left ventricular diastolic filling is observed, consistent with impaired relaxation. *There is no pericardial effusion. Findings Procedure Info: The study quality is technically difficult. The study was technically limited due to the patient's inability to lay in the left lateral decubitus position. Left Ventricle: The left ventricular chamber size is normal. There is no left ventricular hypertrophy. Global left ventricular wall motion and contractility are within normal limits. Global left ventricular systolic function is normal. The estimated ejection fraction is 55-60%. Abnormal left ventricular diastolic filling is observed, consistent with impaired relaxation. Left Atrium: The left atrial chamber size is normal. Aortic Valve: The aortic valve leaflets are mildly thickened. Mitral Valve: The mitral valve leaflets are mildly thickened. There is no evidence of mitral regurgitation. Tricuspid Valve: The tricuspid valve leaflets are normal. There is trace tricuspid regurgitation. The right ventricular systolic pressure is calculated at 33 mmHg. Pulmonic Valve: The pulmonic valve appears normal. Pericardium: The pericardium appears normal. There is no pericardial effusion. Aorta: The aorta appears normal. Venous: The inferior vena cava appears normal in size. Measurements Chambers 2D Name Value Normal Range IVSd (2D) 0.94 cm (0.6 - 1.1) LVPWd (2D) 0.81 cm (0.6 - 1.1) LVIDd (2D) 3.6 cm (3.7 - 5.6) LVIDs (2D) 2.27 cm (2 - 3.8) LV FS (2D) 36.93 % - EF Teichholz (2D) 67.76 % - Ao root diameter (2D) 3.03 cm (2 - 3.7) Volumes/Mass Name Value Normal Range LA ESV SP 4CH (A/L) 16.89 ml - LA ESV SP 4CH (MOD) 15.52 ml - Diastolic/Systolic Function Name Value Normal Range MV E-wave Vmax 0.55 m/sec - MV deceleration time 200.89 msec - MV A-wave Vmax 0.68 m/sec - MV E:A ratio 0.82 ratio - Aortic Valve Name Value Normal Range AV Vmax 1.1 m/sec - AV VTI 15.9 cm - AV peak gradient 4.86 mmHg - AV mean gradient 2.59 mmHg - LVOT diameter 2 cm - LVOT Vmax 1.03 m/sec - LVOT VTI 15.87 cm - LVOT peak gradient 4.24 mmHg - LVOT mean gradient 2.41 mmHg - SV LVOT 49.77 ml - JOSÉ MIGUEL (continuity Vmax) 2.93 cm2 - JOSÉ MIGUEL (continuity VTI) 3.13 cm2 - Tricuspid Valve Name Value Normal Range TR Vmax 2.74 m/sec - TR peak gradient 303 mmHg - RAP 3 mmHg - RVSP 33 mmHg - IVC diameter 1.77 cm (1.2 - 2.3) Pulmonic Valve/Qp:Qs Name Value Normal Range PV Vmax 0.77 m/sec - PV peak gradient 2.4 mmHg - PV acceleration time 114.18 msec - Echocardiogram Limited Views 12/17/19 14:53 Transthoracic Echocardiogram Indication: R/O Vegetations BP: 144/83 HR: 133 Conclusions *Global left ventricular systolic function is mildly decreased. *The estimated ejection fraction is 45-50%. *A trivial pericardial effusion is visualized. Findings Left Ventricle: The left ventricular chamber size is normal. Global left ventricular systolic function is mildly decreased. The estimated ejection fraction is 45-50%. Left Atrium: The left atrial chamber size is normal. Right Ventricle: The right ventricular cavity size is normal. Right Atrium: The right atrial cavity size is normal. Aortic Valve: The aortic valve is not well visualized. There is no evidence of aortic regurgitation. Mitral Valve: The mitral valve leaflets are mildly thickened. There is trace of mitral regurgitation. Tricuspid Valve: The tricuspid valve leaflets are mildly thickened. There is trace tricuspid regurgitation. The right ventricular systolic pressure is calculated at 29 mmHg. Pulmonic Valve: The pulmonic valve is not well visualized. There is no evidence of pulmonic regurgitation. Pericardium: A trivial pericardial effusion is visualized. Aorta: There is no dilatation of the ascending aorta. There is no dilatation of the aortic root. Venous: The inferior vena cava appears normal in size. There is a greater than 50% respiratory change in the inferior vena cava dimension. Measurements Chambers 2D Name Value Normal Range IVSd (2D) 0.83 cm (0.6 - 1.1) LVPWd (2D) 0.98 cm (0.6 - 1.1) LVIDd (2D) 3.71 cm (3.7 - 5.6) LVIDs (2D) 2.93 cm (2 - 3.8) LV FS (2D) 21.12 % - EF Teichholz (2D) 43.71 % - Ao root diameter (2D) 3.02 cm (2 - 3.7) Volumes/Mass Name Value Normal Range LA ESV SP 4CH (A/L) 36.8 ml - LA ESV SP 2CH (A/L) 45.89 ml - LA ESV BP (A/L) 42.35 ml - LA ESV BP (A/L) index 26.63 ml/m2 - LA ESV SP 4CH (MOD) 34.42 ml - LA ESV SP 2CH (MOD) 44.21 ml - LA ESV BP (MOD) 39.82 ml - LA ESV BP (MOD) index 25.05 ml/m2 - Aortic Valve Name Value Normal Range LVOT diameter 1.63 cm - Tricuspid Valve Name Value Normal Range TR Vmax 2.56 m/sec - TR peak gradient 26 mmHg - RAP 3 mmHg - RVSP 29 mmHg - IVC diameter 1.83 cm (1.2 - 2.3) [place]/IV: Voiding Method Incontinent IV Catheter Type [Forearm] Peripheral IV IV Catheter Type [Left Forearm INT / Saline Lock ] IV Catheter Type [Right Peripheral IV Antecubital] IV Catheter Type [Right Hand] Peripheral IV IV Catheter Type [Right Wrist] Peripheral IV IV Catheter Type [Left Wrist] Peripheral IV IV Catheter Type [Left Peripheral IV Antecubital] IV Catheter Type [Right INT / Saline Lock Forearm] IV Catheter Type [Left Hand] Peripheral IV Active Medications - Current Medications Current Medications: Generic Name Dose Route Start Last Admin Trade Name Freq PRN Reason Stop Dose Admin Acetaminophen 650 mg 12/06/19 10:25 02/05/20 22:07 Tylenol FEEDTUBE 650 mg Q6H PRN Administration TEMP >/=100.3 Acetylcysteine 200 mg 02/08/20 16:00 02/10/20 02:06 Mucomyst Inhalation INHALATION 02/11/20 15:59 Not Given Q8HRT LUCHO Lipase/Protease/Amylase 1 each 11/23/19 11:[address] 10,500 Unit FEEDTUBE PRN PRN Use w/ sod bicarb for FT Bisacodyl 10 mg 02/06/20 13:57 Dulcolax VT QDAY PRN Constipation unrelieved by MOM Docusate Sodium 100 mg 02/06/20 22:00 02/09/20 21:24 Colace PO Not Given BID LUCHO Glycopyrrolate 2 mg 12/31/19 20:00 02/09/20 21:23 Robinul PO 2 mg TID LUCHO Administration Hydralazine HCl 10 mg 11/24/19 00:45 12/18/19 13:25 Apresoline IV 10 mg Q6H PRN Administration SBP > 160 Hydroxyzine Pamoate 25 mg 12/06/19 10:00 02/09/20 21:23 Vistaril PO 25 mg BID LUCHO Administration Lansoprazole 30 mg 11/27/19 10:00 02/09/20 09:11 Prevacid Solutab FEEDTUBE 30 mg QDAY LUCHO Administration Levalbuterol HCl 0.63 mg 01/24/20 14:00 02/10/20 02:06 Xopenex IH 0.63 mg Q6HRT LUCHO Administration Levetiracetam 500 mg 11/29/19 10:00 02/09/20 21:23 Keppra PO 500 mg BID LUCHO Administration Mirtazapine 30 mg 12/06/19 10:00 02/09/20 09:11 Remeron PO 30 mg DAILY LUCHO Administration Ondansetron HCl 4 mg 12/10/19 07:53 02/05/20 22:06 Zofran IV 4 mg Q4H PRN Administration Nausea And Vomiting Polyethylene Glycol 17 gm 02/06/20 13:57 Miralax 3350 PO QDAY PRN Constipation Quetiapine Fumarate 100 mg 01/09/20 21:41 02/09/20 21:24 Seroquel FEEDTUBE 100 mg QHS LUCHO Administration Scopolamine 1 each 02/08/20 15:00 02/08/20 18:11 Transderm-Scop TD 1 each Q3D LUCHO Administration Sertraline HCl 25 mg 01/01/20 10:00 02/09/20 09:11 Zoloft PO 25 mg QDAY LUCHO Administration Simple Syrup 15 ml 11/23/19 11:50 Simple Syrup FEEDTUBE PRN PRN Hypoglycemia BG<70 Simple Syrup 30 ml 11/23/19 11:50 Simple Syrup FEEDTUBE PRN PRN Hypoglycemia Sodium Bicarbonate 325 mg 11/23/19 11:50 Sodium Bicarbonate FEEDTUBE PRN PRN For Clogged Feeding Tube Tamsulosin HCl 0.4 mg 12/14/19 13:00 02/09/20 09:11 Flomax PO 0.4 mg QDAY LUCHO Administration Nutrition/Malnutrition Assess - Dietary Evaluation Nutrition/Malnutrition Findings: Nutrition Notes Start: 11/23/19 11:29 Freq: Status: Active Protocol: Document 02/07/20 12:02 LM (Rec: 02/07/20 12:13 LM [email or web address]) Nutrition Notes Initial or Follow up Reassessment Current Diagnosis Hypertension Other Pertinent Diagnosis Cardaic arrest, ETOH dependence, UTI Current Diet Jevity 1.2 at 55ml/hr Labs/Tests Reviewed Pertinent Medications Reviewed Height 5 ft 6 in Weight 49.6 kg [place] Body Weight (kg) 59.09 BMI 17.6 Subjective/Other Information Per RN notes TF running at goal. Wt continues to drop. Will increase TF rate. Percent of energy/protein needs met: 86%/100% Burn Absent Trauma Absent GI Symptoms None Current % PO Negligible Minimum of two criteria Yes Interpretation of Weight Loss (severe) >2% in 1 week Muscle Mass Mild Depletion (non-severe) #2 Nutrition Diagnosis Malnutrition Diagnosis Progress(for reassessment Continues documentation) #1 Nutrition Diagnosis Inadequate oral intake Diagnosis Progress(for reassessment Continues documentation) Is patient on ventilator? No Is Patient Ambulatory and/or Out of Bed No REE-([facility]-confined to bed) 1339.884 Kcal/Kg value to use for calculation 37 Approximate Energy Requirements Using 1835 kcal/Kg Calculation Used for Recommendations Kcal/kg Additional Notes Protein: 60-75g (1.2-1.5g/kg) Fluid: 1 ml/kcal Nutrition Intervention Change Diet Order: Continue TF Nutrition Support: Change to Jevity 1.2 at 60ml/ hr Flush 100ml q4h Kcal 1,728 Protein (gm) 80 Fluid (mL) 1,162 Goal #1 TF tolerance Goal #2 Meet at least 80% of energy and protein needs via TF Anticipated Discharge Needs: TF Follow-Up By: 02/12/20 Additional Comments F/U for TF tolerance, wt
[2020-02-10] MEDS: hydrOXYzine PAMOATE 25 MG CAP PO SCH ×2 (10:54→22:36)
[2020-02-10] MEDS: GLYCOPYRROLATE 1 MG TAB PO SCH ×3 (10:54→20:35)
[2020-02-10] MEDS: levETIRAcetam 500 MG/5 ML ORAL LIQD PO SCH ×2 (10:55→22:35)
[2020-02-10] MEDS: TAMSULOSIN 0.4 MG CAP PO SCH (10:55)
[2020-02-10] MEDS: LANSOPRAZOLE 30 MG SOLUTAB FEEDTUBE SCH (10:55)
[2020-02-10] MEDS: SERTRALINE 50 MG TAB PO SCH (10:55)
[2020-02-10] MEDS: MIRTAZAPINE 30 MG TAB PO SCH (10:55)
[2020-02-10] MEDS: DOCUSATE SODIUM 100 MG CAP PO SCH ×2 (10:55→22:35)
[2020-02-10] MEDS: QUEtiapine 100 MG TAB FEEDTUBE SCH (22:35)
[2020-02-11] MEDS: LEVALBUTEROL 0.63 MG/3 ML NEBU IH SCH ×4 (02:29→20:45)
[2020-02-11] MEDS: ACETYLCYSTEINE 20% 200 MG/1 ML *FOR INHALATION USE INHALATION SCH ×3 (07:55→20:45)
[2020-02-11] MEDS: TAMSULOSIN 0.4 MG CAP PO SCH (10:37)
[2020-02-11] MEDS: levETIRAcetam 500 MG/5 ML ORAL LIQD PO SCH ×2 (10:37→21:28)
[2020-02-11] MEDS: GLYCOPYRROLATE 1 MG TAB PO SCH ×3 (10:37→20:45)
[2020-02-11] MEDS: SERTRALINE 50 MG TAB PO SCH (10:37)
[2020-02-11] MEDS: LANSOPRAZOLE 30 MG SOLUTAB FEEDTUBE SCH (10:38)
[2020-02-11] MEDS: hydrOXYzine PAMOATE 25 MG CAP PO SCH ×2 (10:38→21:28)
[2020-02-11] MEDS: DOCUSATE SODIUM 100 MG CAP PO SCH ×2 (10:38→21:28)
[2020-02-11] MEDS: MIRTAZAPINE 30 MG TAB PO SCH (10:44)
--- NOTE | 2020-02-11 14:01 | Progress Note ---
Assessment and Plan cv Patient assessment and monitoring of vital signs []c Documentation [] Medication orders and management - Patient Problems (1) Seizure disorder Current Visit: Yes Status: Acute Plan to address problem: Seizures appear to be well controlled at this time. No active seizure over the last 72 hours or more. Continue present management. (2) Alcohol abuse Current Visit: Yes Status: Acute Plan to address problem: History of alcohol abuse. Patient does not have delirium tremors. Requires restraints. (3) Cardiac arrest with successful resuscitation Current Visit: Yes Status: Acute Plan to address problem: Status post cardiorespiratory arrest. . Anoxia is better from my initial presentation with her weeks ago. Will be a great candidate for residential facility. Patient has had success with recovery.. Improved responsiveness still has significant changes consistent with anoxia. No new changes. We will follow-up residential facility. His management aware. (4) Elevated LFTs Current Visit: Yes Status: Resolved Plan to address problem: LFTs as resorted to normal. (5) UTI (urinary tract infection) Current Visit: Yes Status: Acute Plan to address problem: UTI treated no longer requiring antibiotic therapy. (6) HTN (hypertension) Current Visit: No Status: Acute Plan to address problem: Patient continues to have optimal control blood pressure. (7) Alcohol abuse Current Visit: Yes Status: Acute Plan to address problem: Patient off CIWA protocol. Hyperammonia level resolved. Was secondary to EtOH abuse. (8) Acute respiratory failure Current Visit: Yes Status: Acute Plan to address problem: Patient status post intubation PEG tube. Chest clear negative for pulmonary embolism. Awaiting placement. Subjective Principal diagnosis: Ac cardiopulmonary arrest; Ac hypoxemic resp failure; Acute encephalopathy Interval history: Patient follows commands. Denies pain. Paperwork filled out for patient to be transferred to residential facility. Tentative plan for transfer on Tuesday is a holiday. No events overnight. Remains chronically ill. Objective - Constitutional Vitals: Vital Signs - 12hr 02/11/20 02/11/20 02/11/20 05:01 05:30 07:19 Temperature 97.9 F 97.9 F Pulse Rate 102 H 115 H Pulse Rate [ Posterior Bilateral Throughout] Respiratory 18 20 Rate Respiratory Rate [Posterior Bilateral Throughout] Blood Pressure 125/83 128/79 Blood Pressure [Left] O2 Sat by Pulse 91 89 Oximetry O2 Sat by Pulse 98 Oximetry [ Assessment] 02/11/20 02/11/20 02/11/20 07:55 07:57 08:00 Temperature Pulse Rate Pulse Rate [ 102 H Posterior Bilateral Throughout] Respiratory Rate Respiratory 18 Rate [Posterior Bilateral Throughout] Blood Pressure Blood Pressure [Left] O2 Sat by Pulse 94 Oximetry O2 Sat by Pulse 95 Oximetry [ Assessment] 02/11/20 02/11/20 10:00 11:00 Temperature 97.2 F L Pulse Rate 121 H 102 H Pulse Rate [ Posterior Bilateral Throughout] Respiratory 19 Rate Respiratory Rate [Posterior Bilateral Throughout] Blood Pressure Blood Pressure 134/83 [Left] O2 Sat by Pulse 97 Oximetry O2 Sat by Pulse Oximetry [ Assessment] General appearance: Present: no acute distress - EENT Eyes: PERRL ENT: hearing intact, clear oral mucosa, other (Anterior secretions.) - Neck Neck: supple, normal ROM - Respiratory Respiratory: bilateral: CTA, diminished - Breasts Breasts: normal - Cardiovascular Rhythm: regular Extremities: pulses intact, No edema, normal color, Full ROM - Gastrointestinal General gastrointestinal: Present: soft, non-tender, non-distended, normal bowel sounds, hypoactive bowel sounds - Genitourinary Female genitourinary: normal - Integumentary Integumentary: clear, warm, dry - Musculoskeletal Musculoskeletal: generalized weakness - Neurologic Neurologic: focal deficits - Labs CBC & Chem 7: 02/08/20 07:55 02/08/20 08:52 Labs: Abnormal lab results 02/10/20 Range/Units 17:08 POC Glucose 111 H (70-105) HEART Score - HEART Score Troponin: Troponin T < 0.010 ng/mL (0.00-0.029) 11/22/19 23:27
[2020-02-11] MEDS: SCOPOLAMINE TRANSDERMAL PATCH 72 HR TD SCH (14:59)
[2020-02-11] MEDS: QUEtiapine 100 MG TAB FEEDTUBE SCH (21:28)
[2020-02-12] MEDS: LEVALBUTEROL 0.63 MG/3 ML NEBU IH SCH ×4 (06:21→22:30)
--- NOTE | 2020-02-12 07:26 | Progress Note ---
Assessment and Plan Assessment and plan: 54-year-old female with a past medical history of Hypertension, Depression, Tobacco use Disorder, Alcohol use Disorder as confirmed by Daughter and pt's mother presents to the hospital status post cardiac arrest. Patient is from home and family called EMS at 22: 27 for the pt who had told family members that she was not feeling good and c/o her chronic hip pain. She urinated and then was speaking, then she " froze and was rigid " per daughter and she became unresponsive and stopped breathing. Immediately, family began CPR. EMS found pt in PEA. Upon their arrival patient in SinuS Tachycardia.. They were unable to intubate patient with a ET tube because she was clenching down therefore Joe airway placed. Patient received Narcan and Epinephrine. Patient's rhythm changed to PEA to sinus bradycardia, to PEA, then to sinus tach after receiving Narcan and Epinephrine. Per the ED physician who evaluated pt, Patient presented with a pulse, intermittent respirations, and bagging support via Joe airway with O2 sat of 100%. Accu-Chek of 71 obtained by EMS Following admission patient was diagnosed with anoxic brain injury, sepsis with MRSA bacteremia and MSSA pneumonia, alcoholic liver disease. Family member initially wished for full code then changed to DNR, patient treated with IV a ntibiotics for sepsis, status post trach and PEG on 12/13/19. Weaned off from the vent and put on T-piece. Patient is uninsured, waiting for placement, guarded prognosis. Dr. Rodriguez spoke to patient's family (daughter and mother). MOther is Anh Jesus- [phone] and she would like to be called about pt's progress or notified about the pt. No seizure activity was noted. They deny that patient had any preceding infection symptoms, cough, fever, complaints of chest pain, shortness of breath, or any bleeding diathesis, melena, hematochezia, hematuria, hematemesis, or abdominal pain. Patient is a known alcoholic and continues to drink per daughter. No history could be obtained from the pt due to her mechanical ventilation. No previous hx of DVT/PE per mother and daughter. / Anoxic brain injury: suspected CT head: No acute abnormality. EEG ordered showed Generalized slowing. No seizures or epileptiform activity. -Patient now opening her eyes, can speak and able to follow minor command by nodding head /Acute Respiratory failure with hypoxia -s/p Tracheostomy Status post cardiac arrest -s/p intubation, s/p trach and PEG on 12/12 with mechanical ventilation, now on T-piece - CTA was done and negative for PE, - Echo quality is poor, showed diastolic dysfunction - continue weaning as tolerated /Oropharyngeal dysphagia s/p PEG /Persistent Tachycardia -Check TSH and Free T4 /BHAVANA secondary to vasomotor nephropathy /Anemia, microcytic - Status post 3 units PRBC transfusion, H&H low stable /Acute metabolic encephalopathy/toxic encephalopathy due to the above - cont supportive care /Hyperammonemia - likely from liver disease related to EtOH abuse - Patient had elevated ammonia level and treated with lactulose /Metabolic Acidosis -Alcohol ketoacidosis vs hypoprofusion -Continue to monitor /Acute cystitis /ELevated LFTs, stable now - due to ischemic hepatitis. /Leucocytosis with sepsis - Source MRSA bacteremia and MSSA pneumonia. UA showed pyuria. RUQ US showed no ascites. - Repeat TTE negative for vegetation. Completed 7 days of Ceftriaxone on 11/29/2019. -Treated with Abx vancomycin 1 gm IV q 12 hour total 2 week till 12/30/2019 /MSSA pneumonia: Status post vancomycin till 12/30/2019 /ALcohol USe Disorder - given ongoing Alcohol use almost daily, s/p IV Thiamine - monitor /Severe hypokalemia -Repleted /Seizure disorder: treat with Keppra /H. Influenzae, tracheobronchitis, treated with abx /Moderate to severe fecal impaction - will add stool softner DNR CODE STATUS Disposition: prognosis guarded. Family okay for DNR, PT recommended subacute rehab, discharge pending on placement. negative for COVID 19 Awaiting Placement to SNF History Interval history: Patient seen and examined, awake, still with some confusion, on restraints Hospitalist Physical - Physical exam Narrative exam: General appearance: Present: no acute distress - EENT Eyes: PERRL ENT: hearing intact, clear oral mucosa, other (Anterior secretions.) - Neck Neck: supple, normal ROM - Respiratory Respiratory: bilateral: CTA, diminished - Breasts Breasts: normal - Cardiovascular Rhythm: regular Extremities: pulses intact, No edema, normal color, Full ROM - Gastrointestinal General gastrointestinal: Present: soft, non-tender, non-distended, normal bowel sounds, hypoactive bowel sounds - Genitourinary Female genitourinary: normal - Integumentary Integumentary: clear, warm, dry - Musculoskeletal Musculoskeletal: generalized weakness - Neurologic Neurologic: focal deficits, intermittent confusion - Constitutional Vitals: Temp Pulse Resp BP Pulse Ox 98.1 F 106 H 20 115/76 90 02/12/20 03:56 02/12/20 03:56 02/12/20 03:56 02/12/20 03:56 02/12/20 03:56 General appearance: Present: no acute distress HEART Score - HEART Score Troponin: Troponin T < 0.010 ng/mL (0.00-0.029) 11/22/19 23:27 Results - Labs CBC & Chem 7: 02/08/20 07:55 02/08/20 08:52 Labs: Laboratory Last Values WBC 9.3 K/mm3 (4.5-11.0) 02/03/20 05:59 RBC 3.48 M/mm3 (3.65-5.03) L 02/03/20 05:59 Hgb 10.7 gm/dl (10.1-14.3) 02/08/20 07:55 Hct 31.7 % (30.3-42.9) 02/08/20 07:55 MCV 86 fl (79-97) 02/03/20 05:59 MCH 29 pg (28-32) 02/03/20 05:59 MCHC 34 % (30-34) 02/03/20 05:59 RDW 16.2 % (13.2-15.2) H 02/03/20 05:59 Plt Count 707 K/mm3 (140-440) H 02/03/20 05:59 Lymph % (Auto) 20.2 % (13.4-35.0) 02/03/20 05:59 Cooper % (Auto) 9.3 % (0.0-7.3) H 02/03/20 05:59 Eos % (Auto) 2.5 % (0.0-4.3) 02/03/20 05:59 Baso % (Auto) 0.6 % (0.0-1.8) 02/03/20 05:59 Lymph # 1.9 K/mm3 (1.2-5.4) 02/03/20 05:59 Cooper # 0.9 K/mm3 (0.0-0.8) H 02/03/20 05:59 Eos # 0.2 K/mm3 (0.0-0.4) 02/03/20 05:59 Baso # 0.1 K/mm3 (0.0-0.1) 02/03/20 05:59 Add Manual Diff Complete 12/25/19 03:47 Total Counted 200 12/25/19 03:47 Seg Neutrophils % 67.4 % (40.0-70.0) 02/03/20 05:59 Seg Neuts % (Manual) 97.5 % (40.0-70.0) H 12/25/19 03:47 Band Neutrophils % 0 % 12/25/19 03:47 Lymphocytes % (Manual) 1.0 % (13.4-35.0) L 12/25/19 03:47 Reactive Lymphs % (Man) 0 % 12/25/19 03:47 Monocytes % (Manual) 1.5 % (0.0-7.3) 12/25/19 03:47 Eosinophils % (Manual) 0 % (0.0-4.3) 12/25/19 03:47 Basophils % (Manual) 0 % (0.0-1.8) 12/25/19 03:47 Metamyelocytes % 0 % 12/25/19 03:47 Myelocytes % 0 % 12/25/19 03:47 Promyelocytes % 0 % 12/25/19 03:47 Blast Cells % 0 % 12/25/19 03:47 Nucleated RBC % Not Reportable 12/25/19 03:47 Seg Neutrophils # 6.3 K/mm3 (1.8-7.7) 02/03/20 05:59 Seg Neutrophils # Man 35.3 K/mm3 (1.8-7.7) H 12/25/19 03:47 Band Neutrophils # 0.0 K/mm3 12/25/19 03:47 Lymphocytes # (Manual) 0.4 K/mm3 (1.2-5.4) L 12/25/19 03:47 Abs React Lymphs (Man) 0.0 K/mm3 12/25/19 03:47 Monocytes # (Manual) 0.5 K/mm3 (0.0-0.8) 12/25/19 03:47 Eosinophils # (Manual) 0.0 K/mm3 (0.0-0.4) 12/25/19 03:47 Basophils # (Manual) 0.0 K/mm3 (0.0-0.1) 12/25/19 03:47 Metamyelocytes # 0.0 K/mm3 12/25/19 03:47 Myelocytes # 0.0 K/mm3 12/25/19 03:47 Promyelocytes # 0.0 K/mm3 12/25/19 03:47 Blast Cells # 0.0 K/mm3 12/25/19 03:47 Pathologist Review 12/13/19 07:48 WBC Morphology Not Reportable 12/25/19 03:47 Hypersegmented Neuts Not Reportable 12/25/19 03:47 Hyposegmented Neuts Not Reportable 12/25/19 03:47 Hypogranular Neuts Not Reportable 12/25/19 03:47 Smudge Cells Not Reportable 12/25/19 03:47 Toxic Granulation Not Reportable 12/25/19 03:47 Toxic Vacuolation Not Reportable 12/25/19 03:47 Dohle Bodies Not Reportable 12/25/19 03:47 Pelger-Huet Anomaly Not Reportable 12/25/19 03:47 Dominique Rods Not Reportable 12/25/19 03:47 Platelet Estimate Consistent w auto 12/25/19 03:47 Clumped Platelets Not Reportable 12/25/19 03:47 Plt Clumps, EDTA Not Reportable 12/25/19 03:47 Large Platelets Not Reportable 12/25/19 03:47 Giant Platelets Not Reportable 12/25/19 03:47 Platelet Satelliting Not Reportable 12/25/19 03:47 Plt Morphology Comment Not Reportable 12/25/19 03:47 RBC Morphology Not Reportable 12/25/19 03:47 Dimorphic RBCs Not Reportable 12/25/19 03:47 Polychromasia Not Reportable 12/25/19 03:47 Hypochromasia Not Reportable 12/25/19 03:47 Poikilocytosis Not Reportable 12/25/19 03:47 Anisocytosis 1+ 12/25/19 03:47 Microcytosis Not Reportable 12/25/19 03:47 Macrocytosis Not Reportable 12/25/19 03:47 Spherocytes Not Reportable 12/25/19 03:47 Pappenheimer Bodies Not Reportable 12/25/19 03:47 Sickle Cells Not Reportable 12/25/19 03:47 Target Cells Not Reportable 12/25/19 03:47 Tear Drop Cells Not Reportable 12/25/19 03:47 Ovalocytes Not Reportable 12/25/19 03:47 Helmet Cells Not Reportable 12/25/19 03:47 [place] Bodies Not Reportable 12/25/19 03:47 [place] Rings Not Reportable 12/25/19 03:47 Jamshid Cells Not Reportable 12/25/19 03:47 Bite Cells Not Reportable 12/25/19 03:47 Crenated Cell Not Reportable 12/25/19 03:47 Elliptocytes Not Reportable 12/25/19 03:47 Acanthocytes (Spur) Not Reportable 12/25/19 03:47 Rouleaux Not Reportable 12/25/19 03:47 Hemoglobin C Crystals Not Reportable 12/25/19 03:47 Schistocytes Not Reportable 12/25/19 03:47 Malaria parasites Not Reportable 12/25/19 03:47 Gregg Bodies Not Reportable 12/25/19 03:47 Hem Pathologist Commnt No 12/25/19 03:47 PT 17.0 Sec. (12.2-14.9) H 11/23/19 03:47 INR 1.36 (0.87-1.13) H 11/23/19 03:47 APTT 128.2 Sec. (24.2-36.6) H* 11/23/19 03:47 Heparin Anti-Xa Level 0.31 U.I./ml (0.3-0.7) 11/23/19 09:03 ABG pH 7.429 pH Units (7.350-7.450) 01/09/20 08:51 ABG pCO2 39.1 mm Hg 01/09/20 08:51 ABG pO2 94.3 mm Hg (80.0-90.0) H 01/09/20 08:51 ABG HCO3 25.3 mmol/L (20.0-26.0) 01/09/20 08:51 ABG O2 Saturation 97.4 % (95.0-99.0) 01/09/20 08:51 ABG O2 Content 12.9 (0.0-44) 01/09/20 08:51 ABG Base Excess 1.0 mmol/L (-2.0-3.0) 01/09/20 08:51 ABG Hemoglobin 9.5 gm/dl (12.0-16.0) L 01/09/20 08:51 ABG Carboxyhemoglobin 1.3 % (0.0-5.0) 01/09/20 08:51 ABG Methemoglobin 0.4 % (0.0-1.5) 01/09/20 08:51 Oxyhemoglobin 95.7 % (95.0-99.0) 01/09/20 08:51 FiO2 35 % 01/09/20 08:51 Sodium 136 mmol/L (137-145) L 02/08/20 08:52 Potassium 4.3 mmol/L (3.6-5.0) 02/08/20 08:52 Chloride 95.7 mmol/L (98-107) L 02/08/20 08:52 Carbon Dioxide 27 mmol/L (22-30) 02/08/20 08:52 Anion Gap 18 mmol/L 02/08/20 08:52 BUN 21 mg/dL (7-17) H 02/08/20 08:52 Creatinine 0.4 mg/dL (0.7-1.2) L 02/08/20 08:52 Estimated GFR > 60 ml/min 02/08/20 08:52 BUN/Creatinine Ratio 53 % 02/08/20 08:52 Glucose 99 mg/dL (65-100) 02/08/20 08:52 POC Glucose 107 (70-105) H 02/12/20 02:39 Lactic Acid 1.80 mmol/L (0.7-2.0) 11/25/19 05:05 Calcium 10.4 mg/dL (8.4-10.2) H 02/08/20 08:52 Ionized Calcium 4.5 mg/dL (4.8-5.6) L 11/23/19 06:32 Phosphorus 4.20 mg/dL (2.5-4.5) D 11/28/19 08:59 Magnesium 2.30 mg/dL (1.7-2.3) 11/29/19 13:41 Total Bilirubin 0.40 mg/dL (0.1-1.2) 12/13/19 07:48 AST 27 units/L (5-40) 12/13/19 07:48 ALT 26 units/L (7-56) 12/13/19 07:48 Alkaline Phosphatase 316 units/L (35-129) H 12/13/19 07:48 Ammonia 42.0 umol/L (25-60) 11/29/19 13:41 Total Creatine Kinase 139 units/L (30-135) H 11/22/19 23:27 CK-MB (CK-2) 8.3 ng/mL (0.0-4.0) H 11/22/19 23:27 CK-MB (CK-2) Rel Index 5.9 (0-4) H 11/22/19 23:27 Troponin T < 0.010 ng/mL (0.00-0.029) 11/22/19 23:27 Total Protein 6.8 g/dL (6.3-8.2) 12/13/19 07:48 Albumin 2.4 g/dL (3.9-5) L 12/13/19 07:48 Albumin/Globulin Ratio 0.5 % 12/13/19 07:48 Lipase 18 units/L (13-60) 11/23/19 00:34 Procalcitonin 1.09 ng/mL (<0.15) 11/23/19 04:53 Urine Color Yellow (Yellow) 12/16/19 Unknown Urine Turbidity Slightly-cloudy (Clear) 12/16/19 Unknown Urine pH 5.0 (5.0-7.0) 12/16/19 Unknown Ur Specific [place] 1.018 (1.003-1.030) 12/16/19 Unknown Urine Protein 30 mg/dl mg/dL (Negative) 12/16/19 Unknown Urine Glucose (UA) Neg mg/dL (Negative) 12/16/19 Unknown Urine Ketones Neg mg/dL (Negative) 12/16/19 Unknown Urine Blood Sm (Negative) 12/16/19 Unknown Urine Nitrite Neg (Negative) 12/16/19 Unknown Urine Bilirubin Neg (Negative) 12/16/19 Unknown Urine Urobilinogen < 2.0 mg/dL (<2.0) 12/16/19 Unknown Ur Leukocyte Esterase Neg (Negative) 12/16/19 Unknown Urine WBC (Auto) 6.0 /HPF (0.0-6.0) 12/16/19 Unknown Urine RBC (Auto) 9.0 /HPF (0.0-6.0) 12/16/19 Unknown U Epithel Cells (Auto) < 1.0 /HPF (0-13.0) 12/16/19 Unknown Urine Bacteria (Auto) 2+ /HPF (Negative) 11/22/19 23:17 Hyaline Casts 3 /LPF 12/16/19 Unknown Granular Casts 3 /LPF 12/16/19 Unknown Urine Mucus Few /HPF 12/16/19 Unknown Vancomycin Trough 33.8 ug/mL (5.0-20.0) H 12/21/19 08:56 Random Vancomycin 16.2 ug/mL (0-40.0) 12/24/19 04:31 Salicylates < 0.3 mg/dL (2.8-20.0) L 11/22/19 23:27 Urine Opiates Screen Presumptive negative 11/22/19 23:17 Urine Methadone Screen Presumptive negative 11/22/19 23:17 Acetaminophen < 5.0 ug/mL (10.0-30.0) L 11/22/19 23:27 Ur Barbiturates Screen Presumptive negative 11/22/19 23:17 Ur Phencyclidine Scrn Presumptive negative 11/22/19 23:17 Ur Amphetamines Screen Presumptive negative 11/22/19 23:17 U Benzodiazepines Scrn Presumptive negative 11/22/19 23:17 Urine Cocaine Screen Presumptive negative 11/22/19 23:17 U Marijuana (THC) Screen Presumptive negative 11/22/19 23:17 Drugs of Abuse Note Disclamer 11/22/19 23:17 Plasma/Serum Alcohol 0.08 % (0-0.07) H 11/22/19 23:27 Coronavirus (PCR) Negative (Negative) 02/05/20 07:50 Hepatitis A IgM Ab Non-reactive (NonReactive) 11/23/19 01:19 Hep Bs Antigen Non-reactive (Negative) 11/23/19 01:19 Hep B Core IgM Ab Non-reactive (NonReactive) 11/23/19 01:19 Hepatitis C Antibody Non-reactive (NonReactive) 11/23/19 01:19 Blood Type O POSITIVE 12/21/19 14:54 Antibody Screen Negative 12/21/19 14:54 Crossmatch See Detail 12/21/19 14:54 - Diagnostic Impressions Diagnostic Impressions: Echocardiogram 11/23/19 03:58 Transthoracic Echocardiogram Indication: Cardiac arrest BP: 131/89 HR: 115 Conclusions *The study quality is technically difficult. *Global left ventricular wall motion and contractility are within normal limits. *The estimated ejection fraction is 55-60%. *Abnormal left ventricular diastolic filling is observed, consistent with impaired relaxation. *There is no pericardial effusion. Findings Procedure Info: The study quality is technically difficult. The study was technically limited due to the patient's inability to lay in the left lateral decubitus position. Left Ventricle: The left ventricular chamber size is normal. There is no left ventricular hypertrophy. Global left ventricular wall motion and contractility are within normal limits. Global left ventricular systolic function is normal. The estimated ejection fraction is 55-60%. Abnormal left ventricular diastolic filling is observed, consistent with impaired relaxation. Left Atrium: The left atrial chamber size is normal. Aortic Valve: The aortic valve leaflets are mildly thickened. Mitral Valve: The mitral valve leaflets are mildly thickened. There is no evidence of mitral regurgitation. Tricuspid Valve: The tricuspid valve leaflets are normal. There is trace tricuspid regurgitation. The right ventricular systolic pressure is calculated at 33 mmHg. Pulmonic Valve: The pulmonic valve appears normal. Pericardium: The pericardium appears normal. There is no pericardial effusion. Aorta: The aorta appears normal. Venous: The inferior vena cava appears normal in size. Measurements Chambers 2D Name Value Normal Range IVSd (2D) 0.94 cm (0.6 - 1.1) LVPWd (2D) 0.81 cm (0.6 - 1.1) LVIDd (2D) 3.6 cm (3.7 - 5.6) LVIDs (2D) 2.27 cm (2 - 3.8) LV FS (2D) 36.93 % - EF Teichholz (2D) 67.76 % - Ao root diameter (2D) 3.03 cm (2 - 3.7) Volumes/Mass Name Value Normal Range LA ESV SP 4CH (A/L) 16.89 ml - LA ESV SP 4CH (MOD) 15.52 ml - Diastolic/Systolic Function Name Value Normal Range MV E-wave Vmax 0.55 m/sec - MV deceleration time 200.89 msec - MV A-wave Vmax 0.68 m/sec - MV E:A ratio 0.82 ratio - Aortic Valve Name Value Normal Range AV Vmax 1.1 m/sec - AV VTI 15.9 cm - AV peak gradient 4.86 mmHg - AV mean gradient 2.59 mmHg - LVOT diameter 2 cm - LVOT Vmax 1.03 m/sec - LVOT VTI 15.87 cm - LVOT peak gradient 4.24 mmHg - LVOT mean gradient 2.41 mmHg - SV LVOT 49.77 ml - JOS ÉMIGUEL (continuity Vmax) 2.93 cm2 - JOSÉ MIGUEL (continuity VTI) 3.13 cm2 - Tricuspid Valve Name Value Normal Range TR Vmax 2.74 m/sec - TR peak gradient 303 mmHg - RAP 3 mmHg - RVSP 33 mmHg - IVC diameter 1.77 cm (1.2 - 2.3) Pulmonic Valve/Qp:Qs Name Value Normal Range PV Vmax 0.77 m/sec - PV peak gradient 2.4 mmHg - PV acceleration time 114.18 msec - Echocardiogram Limited Views 12/17/19 14:53 Transthoracic Echocardiogram Indication: R/O Vegetations BP: 144/83 HR: 133 Conclusions *Global left ventricular systolic function is mildly decreased. *The estimated ejection fraction is 45-50%. *A trivial pericardial effusion is visualized. Findings Left Ventricle: The left ventricular chamber size is normal. Global left ventricular systolic function is mildly decreased. The estimated ejection fraction is 45-50%. Left Atrium: The left atrial chamber size is normal. Right Ventricle: The right ventricular cavity size is normal. Right Atrium: The right atrial cavity size is normal. Aortic Valve: The aortic valve is not well visualized. There is no evidence of aortic regurgitation. Mitral Valve: The mitral valve leaflets are mildly thickened. There is trace of mitral regurgitation. Tricuspid Valve: The tricuspid valve leaflets are mildly thickened. There is trace tricuspid regurgitation. The right ventricular systolic pressure is calculated at 29 mmHg. Pulmonic Valve: The pulmonic valve is not well visualized. There is no evidence of pulmonic regurgitation. Pericardium: A trivial pericardial effusion is visualized. Aorta: There is no dilatation of the ascending aorta. There is no dilatation of the aortic root. Venous: The inferior vena cava appears normal in size. There is a greater than 50% respiratory change in the inferior vena cava dimension. Measurements Chambers 2D Name Value Normal Range IVSd (2D) 0.83 cm (0.6 - 1.1) LVPWd (2D) 0.98 cm (0.6 - 1.1) LVIDd (2D) 3.71 cm (3.7 - 5.6) LVIDs (2D) 2.93 cm (2 - 3.8) LV FS (2D) 21.12 % - EF Teichholz (2D) 43.71 % - Ao root diameter (2D) 3.02 cm (2 - 3.7) Volumes/Mass Name Value Normal Range LA ESV SP 4CH (A/L) 36.8 ml - LA ESV SP 2CH (A/L) 45.89 ml - LA ESV BP (A/L) 42.35 ml - LA ESV BP (A/L) index 26.63 ml/m2 - LA ESV SP 4CH (MOD) 34.42 ml - LA ESV SP 2CH (MOD) 44.21 ml - LA ESV BP (MOD) 39.82 ml - LA ESV BP (MOD) index 25.05 ml/m2 - Aortic Valve Name Value Normal Range LVOT diameter 1.63 cm - Tricuspid Valve Name Value Normal Range TR Vmax 2.56 m/sec - TR peak gradient 26 mmHg - RAP 3 mmHg - RVSP 29 mmHg - IVC diameter 1.83 cm (1.2 - 2.3) [place]/IV: Voiding Method Incontinent IV Catheter Type [Forearm] Peripheral IV IV Catheter Type [Left Forearm INT / Saline Lock ] IV Catheter Type [Right Peripheral IV Antecubital] IV Catheter Type [Right Hand] Peripheral IV IV Catheter Type [Right Wrist] Peripheral IV IV Catheter Type [Left Wrist] Peripheral IV IV Catheter Type [Left Peripheral IV Antecubital] IV Catheter Type [Right INT / Saline Lock Forearm] IV Catheter Type [Left Hand] Peripheral IV Active Medications - Current Medications Current Medications: Generic Name Dose Route Start Last Admin Trade Name Freq PRN Reason Stop Dose Admin Acetaminophen 650 mg 12/06/19 10:25 02/05/20 22:07 Tylenol FEEDTUBE 650 mg Q6H PRN Administration TEMP >/=100.3 Acetylcysteine 200 mg 02/10/20 14:00 02/11/20 20:45 Mucomyst Inhalation INHALATION 02/13/20 13:59 200 mg TIDRT LUCHO Administration Lipase/Protease/Amylase 1 each 11/23/19 11:[address] 10,500 Unit FEEDTUBE PRN PRN Use w/ sod bicarb for FT Bisacodyl 10 mg 02/06/20 13:57 Dulcolax MT QDAY PRN Constipation unrelieved by MOM Docusate Sodium 100 mg 02/06/20 22:00 02/11/20 21:28 Colace PO 100 mg BID LUCHO Administration Glycopyrrolate 2 mg 12/31/19 20:00 02/11/20 20:45 Robinul PO 2 mg TID LUCHO Administration Hydralazine HCl 10 mg 11/24/19 00:45 12/18/19 13:25 Apresoline IV 10 mg Q6H PRN Administration SBP > 160 Hydroxyzine Pamoate 25 mg 12/06/19 10:00 02/11/20 21:28 Vistaril PO 25 mg BID LUCHO Administration Lansoprazole 30 mg 11/27/19 10:00 02/11/20 10:38 Prevacid Solutab FEEDTUBE 30 mg QDAY LUCHO Administration Levalbuterol HCl 0.63 mg 01/24/20 14:00 02/12/20 06:21 Xopenex IH Not Given Q6HRT [facility] Levetiracetam 500 mg 11/29/19 10:00 02/11/20 21:28 Keppra PO 500 mg BID LUCHO Administration Mirtazapine 30 mg 12/06/19 10:00 02/11/20 10:44 Remeron PO 30 mg DAILY [facility] Administration Ondansetron HCl 4 mg 12/10/19 07:53 02/05/20 22:06 Zofran IV 4 mg Q4H PRN Administration Nausea And Vomiting Polyethylene Glycol 17 gm 02/06/20 13:57 Miralax 3350 PO QDAY PRN Constipation Quetiapine Fumarate 100 mg 01/09/20 21:41 02/11/20 21:28 Seroquel FEEDTUBE 100 mg QHS LUCHO Administration Scopolamine 1 each 02/08/20 15:00 02/11/20 14:59 Transderm-Scop TD 1 each Q3D LUCHO Administration Sertraline HCl 25 mg 01/01/20 10:00 02/11/20 10:37 Zoloft PO 25 mg QDAY LUCHO Administration Simple Syrup 15 ml 11/23/19 11:50 Simple Syrup FEEDTUBE PRN PRN Hypoglycemia BG<70 Simple Syrup 30 ml 11/23/19 11:50 Simple Syrup FEEDTUBE PRN PRN Hypoglycemia Sodium Bicarbonate 325 mg 11/23/19 11:50 Sodium Bicarbonate FEEDTUBE PRN PRN For Clogged Feeding Tube Tamsulosin HCl 0.4 mg 12/14/19 13:00 02/11/20 10:37 Flomax PO 0.4 mg QDAY LUCHO Administration Nutrition/Malnutrition Assess - Dietary Evaluation Nutrition/Malnutrition Findings: Nutrition Notes Start: 11/23/19 11:29 Freq: Status: Active Protocol: Document 02/07/20 12:02 LM (Rec: 02/07/20 12:13 LM [email or web address]) Nutrition Notes Initial or Follow up Reassessment Current Diagnosis Hypertension Other Pertinent Diagnosis Cardaic arrest, ETOH dependence, UTI Current Diet Jevity 1.2 at 55ml/hr Labs/Tests Reviewed Pertinent Medications Reviewed Height 5 ft 6 in Weight 49.6 kg [place] Body Weight (kg) 59.09 BMI 17.6 Subjective/Other Information Per RN notes TF running at goal. Wt continues to drop. Will increase TF rate. Percent of energy/protein needs met: 86%/100% Burn Absent Trauma Absent GI Symptoms None Current % PO Negligible Minimum of two criteria Yes Interpretation of Weight Loss (severe) >2% in 1 week Muscle Mass Mild Depletion (non-severe) #2 Nutrition Diagnosis Malnutrition Diagnosis Progress(for reassessment Continues documentation) #1 Nutrition Diagnosis Inadequate oral intake Diagnosis Progress(for reassessment Continues documentation) Is patient on ventilator? No Is Patient Ambulatory and/or Out of Bed No REE-([place]-confined to bed) 1339.884 Kcal/Kg value to use for calculation 37 Approximate Energy Requirements Using 1835 kcal/Kg Calculation Used for Recommendations Kcal/kg Additional Notes Protein: 60-75g (1.2-1.5g/kg) Fluid: 1 ml/kcal Nutrition Intervention Change Diet Order: Continue TF Nutrition Support: Change to Jevity 1.2 at 60ml/ hr Flush 100ml q4h Kcal 1,728 Protein (gm) 80 Fluid (mL) 1,162 Goal #1 TF tolerance Goal #2 Meet at least 80% of energy and protein needs via TF Anticipated Discharge Needs: TF Follow-Up By: 02/12/20 Additional Comments F/U for TF tolerance, wt
--- NOTE | 2020-02-12 07:32 | Discharge Summary ---
Providers - Providers Date of Admission: 11/23/19 01:40 Attending physician: GOPAL DOBBINS MD 11/22/19 23:23 Consult to Dietitian/Nutrition [CONS] Routine Physician Instructions: Reason For Exam: Reason for Consult: Evaluate nutritional intake 11/23/19 02:30 Consult to Physician [CONS] Urgent Comment: Consulting Provider: TENA CORONA Physician Instructions: Reason For Exam: s/p cardiac arrest 11/24/19 13:03 Consult to Physician [CONS] Routine Comment: Consulting Provider: JANICE ADAMS Physician Instructions: Reason For Exam: fevers, sepsis, post cardiac arrest 11/24/19 13:04 Consult to Physician [CONS] Routine Comment: Consulting Provider: MIGNON LIVE Physician Instructions: Reason For Exam: post cardiac arrest, encephalopathy 12/05/19 19:39 Consult to Physician [CONS] Routine Comment: Consulting Provider: SIMONA ARITA Physician Instructions: Reason For Exam: trach and PEG 12/14/19 11:46 Consult to Physician [CONS] Routine Comment: Consulting Provider: JEFFERY STEVENS Physician Instructions: I notified Reason For Exam: re-consult for fevers after trach and PEG 12/18/19 12:12 Consult to Case Management [CONS] Stat Services Needed at Discharge: Other Notified:: [employer]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 Keep vancomycin trough 10-20. Labs CBC, creat, CRP, vancomycin trough weekly. Fax labs to [phone] Janice Nicolas MD 01/01/20 13:37 Physical Therapy Evaluation and Treat [CONS] Routine Comment: Reason For Exam: placement 01/14/20 17:43 Consult to Wound/ET Nurse [CONS] Routine Reason For Exam: wound eval 01/15/20 07:45 Consult to Wound/ET Nurse [CONS] Routine Reason For Exam: wound eval of sacrum 01/16/20 13:23 Speech Therapy Eval for Passy-Alena Valve [CONS] Urgent Reason For Exam: trach needing speaking valve Speech Therapy Evaluation and Treat [CONS] Urgent Reason For Exam: trach needing speaking valve 01/26/20 00:49 Consult to Wound/ET Nurse [CONS] Routine Reason For Exam: sacral wound eval 01/27/20 12:18 Consult to Wound/ET Nurse [CONS] Urgent Reason For Exam: wound eval 01/28/20 21:18 Consult to Wound/ET Nurse [CONS] Routine Reason For Exam: wound eval for trach redness and pressure sore 02/09/20 02:15 Consult to Wound/ET Nurse [CONS] Urgent Reason For Exam: for trach dressing groves 02/10/20 10:05 Consult to Wound/ET Nurse [CONS] Urgent Reason For Exam: wound eval Primary care physician: SHEET WRITER Hospitalization Condition: Stable Hospital course: 54-year-old female with a past medical history of Hypertension, Depression, Tobacco use Disorder, Alcohol use Disorder as confirmed by Daughter and pt's mother presents to the hospital status post cardiac arrest. Patient is from home and family called EMS at 22: 27 for the pt who had told family members that she was not feeling good and c/o her chronic hip pain. She urinated and then was speaking, then she " froze and was rigid " per daughter and she became unresponsive and stopped breathing. Immediately, family began CPR. EMS found pt in PEA. Upon their arrival patient in SinuS Tachycardia.. They were unable to intubate patient with a ET tube because she was clenching down therefore Joe airway placed. Patient received Narcan and Epinephrine. Patient's rhythm changed to PEA to sinus bradycardia, to PEA, then to sinus tach after receiving Narcan and Epinephrine. Per the ED physician who evaluated pt, Patient presented with a pulse, intermittent respirations, and bagging support via Joe airway with O2 sat of 100%. Accu-Chek of 71 obtained by EMS Following admission patient was diagnosed with anoxic brain injury, sepsis with MRSA bacteremia and MSSA pneumonia, alcoholic liver disease. Family member initially wished for full code then changed to DNR, patient treated with IV antibiotics for sepsis, status post trach and PEG on 12/13/19. Weaned off from the vent and put on T-piece. Patient is uninsured, waiting for placement, guarded prognosis. Dr. Rodriguez spoke to patient's family (daughter and mother). MOther is Anh Jesus- [phone] and she would like to be called about pt's progress or notified about the pt. No seizure activity was noted. They deny that patient had any preceding infection symptoms, cough, fever, complaints of chest pain, shortness of breath, or any bleeding diathesis, melena, hematochezia, hematuria, hematemesis, or abdominal pain. Patient is a known alcoholic and continues to drink per daughter. No history could be obtained from the pt due to her mechanical ventilation. No previous hx of DVT/PE per mother and daughter. / Anoxic brain injury: suspected CT head: No acute abnormality. EEG ordered showed Generalized slowing. No seizures or epileptiform activity. -Patient now opening her eyes, can speak and able to follow minor command by nodding head /Acute Respiratory failure with hypoxia -s/p Tracheostomy Status post cardiac arrest -s/p intubation, s/p trach and PEG on 12/12 with mechanical ventilation, now on T-piece - CTA was done and negative for PE, - Echo quality is poor, showed diastolic dysfunction - continue weaning as tolerated /Oropharyngeal dysphagia s/p PEG /Persistent Tachycardia -Check TSH and Free T4 /BHAVANA secondary to vasomotor nephropathy /Anemia, microcytic - Status post 3 units PRBC transfusion, H&H low stable /Acute metabolic encephalopathy/toxic encephalopathy due to the above - cont supportive care /Hyperammonemia - likely from liver disease related to EtOH abuse - Patient had elevated ammonia level and treated with lactulose /Metabolic Acidosis -Alcohol ketoacidosis vs hypoprofusion -Continue to monitor /Acute cystitis /ELevated LFTs, stable now - due to ischemic hepatitis. /Leucocytosis with sepsis - Source MRSA bacteremia and MSSA pneumonia. UA showed pyuria. RUQ US showed no ascites. - Repeat TTE negative for vegetation. Completed 7 days of Ceftriaxone on 11/29/2019. -Treated with Abx vancomycin 1 gm IV q 12 hour total 2 week completed 12/30/2019 /MSSA pneumonia: Status post vancomycin completed 12/30/2019 /ALcohol USe Disorder - given ongoing Alcohol use almost daily, s/p IV Thiamine - monitor /Severe hypokalemia -Repleted /Seizure disorder: treat with Keppra /H. Influenzae, tracheobronchitis, treated with abx /Moderate to severe fecal impaction - will add stool softner DNR CODE STATUS Disposition: prognosis guarded. Family okay for DNR, PT recommended subacute rehab, discharge pending on placement. negative for COVID 19 Awaiting Placement to SNF Disposition: [place]-03 SNF W [facility] CERT Core Measure Documentation - Palliative Care Palliative Care/ Comfort Measures: Not Applicable Exam - Constitutional Vitals: Temp Pulse Resp BP Pulse Ox 98.1 F 106 H 20 115/76 90 02/12/20 03:56 02/12/20 03:56 02/12/20 03:56 02/12/20 03:56 02/12/20 03:56 Plan Activity: advance as tolerated, fall precautions Diet: per dietitian instruction Special Instructions: record daily weights, record daily BP diary, home oxygen via (ATC) Follow up with: PRIMARY CARE, [Primary Care Provider] - 3-5 Days MARINO BUSTOS MD [Staff Physician] - 7 Days JANICE ADAMS MD [Staff Physician] - 7 Days RITCHIE RAI MD [Staff Physician] - 7 Days
[2020-02-12] MEDS: ACETYLCYSTEINE 20% 200 MG/1 ML *FOR INHALATION USE INHALATION SCH ×3 (10:09→22:31)
[2020-02-12] MEDS: DOCUSATE SODIUM 100 MG CAP PO SCH ×2 (11:26→22:27)
[2020-02-12] MEDS: ACETAMINOPHEN 325 MG/10.15 ML ORAL LIQD UNIT DOSE FEEDTUBE PRN ×2 (11:57→22:24)
[2020-02-12] MEDS: LANSOPRAZOLE 30 MG SOLUTAB FEEDTUBE SCH (11:58)
[2020-02-12] MEDS: SERTRALINE 50 MG TAB PO SCH (11:58)
[2020-02-12] MEDS: hydrOXYzine PAMOATE 25 MG CAP PO SCH ×2 (11:58→22:25)
[2020-02-12] MEDS: GLYCOPYRROLATE 1 MG TAB PO SCH ×3 (11:59→22:25)
[2020-02-12] MEDS: TAMSULOSIN 0.4 MG CAP PO SCH (11:59)
[2020-02-12] MEDS: MIRTAZAPINE 30 MG TAB PO SCH (11:59)
[2020-02-12] MEDS: levETIRAcetam 500 MG/5 ML ORAL LIQD PO SCH ×2 (11:59→22:25)
[2020-02-12] MEDS: QUEtiapine 100 MG TAB FEEDTUBE SCH (22:25)
[2020-02-13] MEDS: LEVALBUTEROL 0.63 MG/3 ML NEBU IH SCH ×4 (01:56→20:45)
[2020-02-13] MEDS: ACETYLCYSTEINE 20% 200 MG/1 ML *FOR INHALATION USE INHALATION SCH ×2 (09:16→13:43)
[2020-02-13] MEDS: LANSOPRAZOLE 30 MG SOLUTAB FEEDTUBE SCH (11:41)
[2020-02-13] MEDS: hydrOXYzine PAMOATE 25 MG CAP PO SCH ×2 (11:41→22:02)
[2020-02-13] MEDS: levETIRAcetam 500 MG/5 ML ORAL LIQD PO SCH ×2 (11:41→22:01)
[2020-02-13] MEDS: DOCUSATE SODIUM 100 MG CAP PO SCH ×2 (11:41→22:03)
[2020-02-13] MEDS: SERTRALINE 50 MG TAB PO SCH (11:41)
[2020-02-13] MEDS: GLYCOPYRROLATE 1 MG TAB PO SCH ×3 (11:42→22:02)
[2020-02-13] MEDS: MIRTAZAPINE 30 MG TAB PO SCH (11:42)
--- NOTE | 2020-02-13 13:14 | Progress Note ---
Assessment and Plan Assessment and plan: 54-year-old female with a past medical history of Hypertension, Depression, Tobacco use Disorder, Alcohol use Disorder as confirmed by Daughter and pt's mother presents to the hospital status post cardiac arrest. Patient is from home and family called EMS at 22: 27 for the pt who had told family members that she was not feeling good and c/o her chronic hip pain. She urinated and then was speaking, then she " froze and was rigid " per daughter and she became unresponsive and stopped breathing. Immediately, family began CPR. EMS found pt in PEA. Upon their arrival patient in SinuS Tachycardia.. They were unable to intubate patient with a ET tube because she was clenching down therefore Joe airway placed. Patient received Narcan and Epinephrine. Patient's rhythm changed to PEA to sinus bradycardia, to PEA, then to sinus tach after receiving Narcan and Epinephrine. Per the ED physician who evaluated pt, Patient presented with a pulse, intermittent respirations, and bagging support via Joe airway with O2 sat of 100%. Accu-Chek of 71 obtained by EMS Following admission patient was diagnosed with anoxic brain injury, sepsis with MRSA bacteremia and MSSA pneumonia, alcoholic liver disease. Family member initially wished for full code then changed to DNR, patient treated with IV a ntibiotics for sepsis, status post trach and PEG on 12/13/19. Weaned off from the vent and put on T-piece. Patient is uninsured, waiting for placement, guarded prognosis. Dr. Rodriguez spoke to patient's family (daughter and mother). MOther is Anh Jesus- [phone] and she would like to be called about pt's progress or notified about the pt. No seizure activity was noted. They deny that patient had any preceding infection symptoms, cough, fever, complaints of chest pain, shortness of breath, or any bleeding diathesis, melena, hematochezia, hematuria, hematemesis, or abdominal pain. Patient is a known alcoholic and continues to drink per daughter. No history could be obtained from the pt due to her mechanical ventilation. No previous hx of DVT/PE per mother and daughter. 02/13/2020 continue aggressive pulmonary toilet. Agree with addition of Mucomyst every 72 hours. Continue wound care. Awaiting discussion with family about CODE STATUS this has been initiated by the pulmonary doctor have also advised that I am available if the family would like to combine the hospital. Will obtain psych evaluation for anxiety which is understandable in the patient's current medical condition. / Anoxic brain injury: suspected CT head: No acute abnormality. EEG ordered showed Generalized slowing. No seizures or epileptiform activity. -Patient now opening her eyes, can speak and able to follow minor command by nodding head /Acute Respiratory failure with hypoxia -s/p Tracheostomy Status post cardiac arrest -s/p intubation, s/p trach and PEG on 12/12 with mechanical ventilation, now on T-piece - CTA was done and negative for PE, - Echo quality is poor, showed diastolic dysfunction - continue weaning as tolerated /Oropharyngeal dysphagia s/p PEG /Persistent Tachycardia -Check TSH and Free T4 /BHAVANA secondary to vasomotor nephropathy /Anemia, microcytic - Status post 3 units PRBC transfusion, H&H low stable /Acute metabolic encephalopathy/toxic encephalopathy due to the above - cont supportive care /Hyperammonemia - likely from liver disease related to EtOH abuse - Patient had elevated ammonia level and treated with lactulose /Metabolic Acidosis -Alcohol ketoacidosis vs hypoprofusion -Continue to monitor /Acute cystitis /ELevated LFTs, stable now - due to ischemic hepatitis. /Leucocytosis with sepsis - Source MRSA bacteremia and MSSA pneumonia. UA showed pyuria. RUQ US showed no ascites. - Repeat TTE negative for vegetation. Completed 7 days of Ceftriaxone on 11/29/2019. -Treated with Abx vancomycin 1 gm IV q 12 hour total 2 week till 12/30/2019 /MSSA pneumonia: Status post vancomycin till 12/30/2019 /ALcohol USe Disorder - given ongoing Alcohol use almost daily, s/p IV Thiamine - monitor /Severe hypokalemia -Repleted /Seizure disorder: treat with Keppra /H. Influenzae, tracheobronchitis, treated with abx /Moderate to severe fecal impaction - will add stool softner /Anxiety disorder: Psych consulted DNR CODE STATUS Disposition: prognosis guarded. Family okay for DNR, PT recommended subacute rehab, discharge pending on placement. negative for COVID 19 Awaiting Placement to SNF History Interval history: Patient seen and examined, awake, continues to make remarkable improvement still on restraints due to impulsive trying to get out of bed. Markedly lethargic. Increased secretions Hospitalist Physical - Physical exam Narrative exam: General appearance: Present: no acute distress - EENT Eyes: PERRL ENT: hearing intact, clear oral mucosa, other (increased secretions.) - Neck Neck: supple, normal ROM - Respiratory Respiratory: bilateral: CTA, diminished - Breasts Breasts: normal - Cardiovascular Rhythm: regular Extremities: pulses intact, No edema, normal color, Full ROM - Gastrointestinal General gastrointestinal: Present: soft, non-tender, non-distended, normal bowel sounds, hypoactive bowel sounds - Genitourinary Female genitourinary: normal - Integumentary Integumentary: See wound care documentation days of trach - Musculoskeletal Musculoskeletal: generalized weakness - Neurologic Neurologic: focal deficits, intermittent confusion - Constitutional Vitals: Temp Pulse Resp BP Pulse Ox 98.1 F 118 H 18 116/79 99 02/13/20 12:16 02/13/20 12:16 02/13/20 12:16 02/13/20 12:16 02/13/20 12:16 General appearance: Present: no acute distress HEART Score - HEART Score Troponin: Troponin T < 0.010 ng/mL (0.00-0.029) 11/22/19 23:27 Results - Labs CBC & Chem 7: 02/08/20 07:55 02/08/20 08:52 Labs: Laboratory Last Values WBC 9.3 K/mm3 (4.5-11.0) 02/03/20 05:59 RBC 3.48 M/mm3 (3.65-5.03) L 02/03/20 05:59 Hgb 10.7 gm/dl (10.1-14.3) 02/08/20 07:55 Hct 31.7 % (30.3-42.9) 02/08/20 07:55 MCV 86 fl (79-97) 02/03/20 05:59 MCH 29 pg (28-32) 02/03/20 05:59 MCHC 34 % (30-34) 02/03/20 05:59 RDW 16.2 % (13.2-15.2) H 02/03/20 05:59 Plt Count 707 K/mm3 (140-440) H 02/03/20 05:59 Lymph % (Auto) 20.2 % (13.4-35.0) 02/03/20 05:59 [place] % (Auto) 9.3 % (0.0-7.3) H 02/03/20 05:59 Eos % (Auto) 2.5 % (0.0-4.3) 02/03/20 05:59 Baso % (Auto) 0.6 % (0.0-1.8) 02/03/20 05:59 Lymph # 1.9 K/mm3 (1.2-5.4) 02/03/20 05:59 [place] # 0.9 K/mm3 (0.0-0.8) H 02/03/20 05:59 Eos # 0.2 K/mm3 (0.0-0.4) 02/03/20 05:59 Baso # 0.1 K/mm3 (0.0-0.1) 02/03/20 05:59 Add Manual Diff Complete 12/25/19 03:47 Total Counted 200 12/25/19 03:47 Seg Neutrophils % 67.4 % (40.0-70.0) 02/03/20 05:59 Seg Neuts % (Manual) 97.5 % (40.0-70.0) H 12/25/19 03:47 Band Neutrophils % 0 % 12/25/19 03:47 Lymphocytes % (Manual) 1.0 % (13.4-35.0) L 12/25/19 03:47 Reactive Lymphs % (Man) 0 % 12/25/19 03:47 Monocytes % (Manual) 1.5 % (0.0-7.3) 12/25/19 03:47 Eosinophils % (Manual) 0 % (0.0-4.3) 12/25/19 03:47 Basophils % (Manual) 0 % (0.0-1.8) 12/25/19 03:47 Metamyelocytes % 0 % 12/25/19 03:47 Myelocytes % 0 % 12/25/19 03:47 Promyelocytes % 0 % 12/25/19 03:47 Blast Cells % 0 % 12/25/19 03:47 Nucleated RBC % Not Reportable 12/25/19 03:47 Seg Neutrophils # 6.3 K/mm3 (1.8-7.7) 02/03/20 05:59 Seg Neutrophils # Man 35.3 K/mm3 (1.8-7.7) H 12/25/19 03:47 Band Neutrophils # 0.0 K/mm3 12/25/19 03:47 Lymphocytes # (Manual) 0.4 K/mm3 (1.2-5.4) L 12/25/19 03:47 Abs React Lymphs (Man) 0.0 K/mm3 12/25/19 03:47 Monocytes # (Manual) 0.5 K/mm3 (0.0-0.8) 12/25/19 03:47 Eosinophils # (Manual) 0.0 K/mm3 (0.0-0.4) 12/25/19 03:47 Basophils # (Manual) 0.0 K/mm3 (0.0-0.1) 12/25/19 03:47 Metamyelocytes # 0.0 K/mm3 12/25/19 03:47 Myelocytes # 0.0 K/mm3 12/25/19 03:47 Promyelocytes # 0.0 K/mm3 12/25/19 03:47 Blast Cells # 0.0 K/mm3 12/25/19 03:47 Pathologist Review 12/13/19 07:48 WBC Morphology Not Reportable 12/25/19 03:47 Hypersegmented Neuts Not Reportable 12/25/19 03:47 Hyposegmented Neuts Not Reportable 12/25/19 03:47 Hypogranular Neuts Not Reportable 12/25/19 03:47 Smudge Cells Not Reportable 12/25/19 03:47 Toxic Granulation Not Reportable 12/25/19 03:47 Toxic Vacuolation Not Reportable 12/25/19 03:47 Dohle Bodies Not Reportable 12/25/19 03:47 Pelger-Huet Anomaly Not Reportable 12/25/19 03:47 Dominique Rods Not Reportable 12/25/19 03:47 Platelet Estimate Consistent w auto 12/25/19 03:47 Clumped Platelets Not Reportable 12/25/19 03:47 Plt Clumps, EDTA Not Reportable 12/25/19 03:47 Large Platelets Not Reportable 12/25/19 03:47 Giant Platelets Not Reportable 12/25/19 03:47 Platelet Satelliting Not Reportable 12/25/19 03:47 Plt Morphology Comment Not Reportable 12/25/19 03:47 RBC Morphology Not Reportable 12/25/19 03:47 Dimorphic RBCs Not Reportable 12/25/19 03:47 Polychromasia Not Reportable 12/25/19 03:47 Hypochromasia Not Reportable 12/25/19 03:47 Poikilocytosis Not Reportable 12/25/19 03:47 Anisocytosis 1+ 12/25/19 03:47 Microcytosis Not Reportable 12/25/19 03:47 Macrocytosis Not Reportable 12/25/19 03:47 Spherocytes Not Reportable 12/25/19 03:47 Pappenheimer Bodies Not Reportable 12/25/19 03:47 Sickle Cells Not Reportable 12/25/19 03:47 Target Cells Not Reportable 12/25/19 03:47 Tear Drop Cells Not Reportable 12/25/19 03:47 Ovalocytes Not Reportable 12/25/19 03:47 Helmet Cells Not Reportable 12/25/19 03:47 [place] Bodies Not Reportable 12/25/19 03:47 Harned Rings Not Reportable 12/25/19 03:47 Romeo Cells Not Reportable 12/25/19 03:47 Bite Cells Not Reportable 12/25/19 03:47 Crenated Cell Not Reportable 12/25/19 03:47 Elliptocytes Not Reportable 12/25/19 03:47 Acanthocytes (Spur) Not Reportable 12/25/19 03:47 Rouleaux Not Reportable 12/25/19 03:47 Hemoglobin C Crystals Not Reportable 12/25/19 03:47 Schistocytes Not Reportable 12/25/19 03:47 Malaria parasites Not Reportable 12/25/19 03:47 Gregg Bodies Not Reportable 12/25/19 03:47 Hem Pathologist Commnt No 12/25/19 03:47 PT 17.0 Sec. (12.2-14.9) H 11/23/19 03:47 INR 1.36 (0.87-1.13) H 11/23/19 03:47 APTT 128.2 Sec. (24.2-36.6) H* 11/23/19 03:47 Heparin Anti-Xa Level 0.31 U.I./ml (0.3-0.7) 11/23/19 09:03 ABG pH 7.429 pH Units (7.350-7.450) 01/09/20 08:51 ABG pCO2 39.1 mm Hg 01/09/20 08:51 ABG pO2 94.3 mm Hg (80.0-90.0) H 01/09/20 08:51 ABG HCO3 25.3 mmol/L (20.0-26.0) 01/09/20 08:51 ABG O2 Saturation 97.4 % (95.0-99.0) 01/09/20 08:51 ABG O2 Content 12.9 (0.0-44) 01/09/20 08:51 ABG Base Excess 1.0 mmol/L (-2.0-3.0) 01/09/20 08:51 ABG Hemoglobin 9.5 gm/dl (12.0-16.0) L 01/09/20 08:51 ABG Carboxyhemoglobin 1.3 % (0.0-5.0) 01/09/20 08:51 ABG Methemoglobin 0.4 % (0.0-1.5) 01/09/20 08:51 Oxyhemoglobin 95.7 % (95.0-99.0) 01/09/20 08:51 FiO2 35 % 01/09/20 08:51 Sodium 136 mmol/L (137-145) L 02/08/20 08:52 Potassium 4.3 mmol/L (3.6-5.0) 02/08/20 08:52 Chloride 95.7 mmol/L (98-107) L 02/08/20 08:52 Carbon Dioxide 27 mmol/L (22-30) 02/08/20 08:52 Anion Gap 18 mmol/L 02/08/20 08:52 BUN 21 mg/dL (7-17) H 02/08/20 08:52 Creatinine 0.4 mg/dL (0.7-1.2) L 02/08/20 08:52 Estimated GFR > 60 ml/min 02/08/20 08:52 BUN/Creatinine Ratio 53 % 02/08/20 08:52 Glucose 99 mg/dL (65-100) 02/08/20 08:52 POC Glucose 124 (70-105) H 02/13/20 06:45 Lactic Acid 1.80 mmol/L (0.7-2.0) 11/25/19 05:05 Calcium 10.4 mg/dL (8.4-10.2) H 02/08/20 08:52 Ionized Calcium 4.5 mg/dL (4.8-5.6) L 11/23/19 06:32 Phosphorus 4.20 mg/dL (2.5-4.5) D 11/28/19 08:59 Magnesium 2.30 mg/dL (1.7-2.3) 11/29/19 13:41 Total Bilirubin 0.40 mg/dL (0.1-1.2) 12/13/19 07:48 AST 27 units/L (5-40) 12/13/19 07:48 ALT 26 units/L (7-56) 12/13/19 07:48 Alkaline Phosphatase 316 units/L (35-129) H 12/13/19 07:48 Ammonia 42.0 umol/L (25-60) 11/29/19 13:41 Total Creatine Kinase 139 units/L (30-135) H 11/22/19 23:27 CK-MB (CK-2) 8.3 ng/mL (0.0-4.0) H 11/22/19 23:27 CK-MB (CK-2) Rel Index 5.9 (0-4) H 11/22/19 23:27 Troponin T < 0.010 ng/mL (0.00-0.029) 11/22/19 23:27 Total Protein 6.8 g/dL (6.3-8.2) 12/13/19 07:48 Albumin 2.4 g/dL (3.9-5) L 12/13/19 07:48 Albumin/Globulin Ratio 0.5 % 12/13/19 07:48 Lipase 18 units/L (13-60) 11/23/19 00:34 Procalcitonin 1.09 ng/mL (<0.15) 11/23/19 04:53 TSH 1.010 mlU/mL (0.270-4.200) 02/12/20 07:36 Free T4 1.08 ng/dL (0.76-1.46) 02/12/20 07:36 Urine Color Yellow (Yellow) 12/16/19 Unknown Urine Turbidity Slightly-cloudy (Clear) 12/16/19 Unknown Urine pH 5.0 (5.0-7.0) 12/16/19 Unknown Ur Specific [place] 1.018 (1.003-1.030) 12/16/19 Unknown Urine Protein 30 mg/dl mg/dL (Negative) 12/16/19 Unknown Urine Glucose (UA) Neg mg/dL (Negative) 12/16/19 Unknown Urine Ketones Neg mg/dL (Negative) 12/16/19 Unknown Urine Blood Sm (Negative) 12/16/19 Unknown Urine Nitrite Neg (Negative) 12/16/19 Unknown Urine Bilirubin Neg (Negative) 12/16/19 Unknown Urine Urobilinogen < 2.0 mg/dL (<2.0) 12/16/19 Unknown Ur Leukocyte Esterase Neg (Negative) 12/16/19 Unknown Urine WBC (Auto) 6.0 /HPF (0.0-6.0) 12/16/19 Unknown Urine RBC (Auto) 9.0 /HPF (0.0-6.0) 12/16/19 Unknown U Epithel Cells (Auto) < 1.0 /HPF (0-13.0) 12/16/19 Unknown Urine Bacteria (Auto) 2+ /HPF (Negative) 11/22/19 23:17 Hyaline Casts 3 /LPF 12/16/19 Unknown Granular Casts 3 /LPF 12/16/19 Unknown Urine Mucus Few /HPF 12/16/19 Unknown Vancomycin Trough 33.8 ug/mL (5.0-20.0) H 12/21/19 08:56 Random Vancomycin 16.2 ug/mL (0-40.0) 12/24/19 04:31 Salicylates < 0.3 mg/dL (2.8-20.0) L 11/22/19 23:27 Urine Opiates Screen Presumptive negative 11/22/19 23:17 Urine Methadone Screen Presumptive negative 11/22/19 23:17 Acetaminophen < 5.0 ug/mL (10.0-30.0) L 11/22/19 23:27 Ur Barbiturates Screen Presumptive negative 11/22/19 23:17 Ur Phencyclidine Scrn Presumptive negative 11/22/19 23:17 Ur Amphetamines Screen Presumptive negative 11/22/19 23:17 U Benzodiazepines Scrn Presumptive negative 11/22/19 23:17 Urine Cocaine Screen Presumptive negative 11/22/19 23:17 U Marijuana (THC) Screen Presumptive negative 11/22/19 23:17 Drugs of Abuse Note Disclamer 11/22/19 23:17 Plasma/Serum Alcohol 0.08 % (0-0.07) H 11/22/19 23:27 Coronavirus (PCR) Negative (Negative) 02/05/20 07:50 Hepatitis A IgM Ab Non-reactive (NonReactive) 11/23/19 01:19 Hep Bs Antigen Non-reactive (Negative) 11/23/19 01:19 Hep B Core IgM Ab Non-reactive (NonReactive) 11/23/19 01:19 Hepatitis C Antibody Non-reactive (NonReactive) 11/23/19 01:19 Blood Type O POSITIVE 12/21/19 14:54 Antibody Screen Negative 12/21/19 14:54 Crossmatch See Detail 12/21/19 14:54 - Diagnostic Impressions Diagnostic Impressions: Echocardiogram 11/23/19 03:58 Transthoracic Echocardiogram Indication: Cardiac arrest BP: 131/89 HR: 115 Conclusions *The study quality is technically difficult. *Global left ventricular wall motion and contractility are within normal limits. *The estimated ejection fraction is 55-60%. *Abnormal left ventricular diastolic filling is observed, consistent with impaired relaxation. *There is no pericardial effusion. Findings Procedure Info: The study quality is technically difficult. The study was technically limited due to the patient's inability to lay in the left lateral decubitus position. Left Ventricle: The left ventricular chamber size is normal. There is no left ventricular hypertrophy. Global left ventricular wall motion and contractility are within normal limits. Global left ventricular systolic function is normal. The estimated ejection fraction is 55-60%. Abnormal left ventricular diastolic filling is observed, consistent with impaired relaxation. Left Atrium: The left atrial chamber size is normal. Aortic Valve: The aortic valve leaflets are mildly thickened. Mitral Valve: The mitral valve leaflets are mildly thickened. There is no evidence of mitral regurgitation. Tricuspid Valve: The tricuspid valve leaflets are normal. There is trace tricuspid regurgitation. The right ventricular systolic pressure is calculated at 33 mmHg. Pulmonic Valve: The pulmonic valve appears normal. Pericardium: The pericardium appears normal. There is no pericardial effusion. Aorta: The aorta appears normal. Venous: The inferior vena cava appears normal in size. Measurements Chambers 2D Name Value Normal Range IVSd (2D) 0.94 cm (0.6 - 1.1) LVPWd (2D) 0.81 cm (0.6 - 1.1) LVIDd (2D) 3.6 cm (3.7 - 5.6) LVIDs (2D) 2.27 cm (2 - 3.8) LV FS (2D) 36.93 % - EF Teichholz (2D) 67.76 % - Ao root diameter (2D) 3.03 cm (2 - 3.7) Volumes/Mass Name Value Normal Range LA ESV SP 4CH (A/L) 16.89 ml - LA ESV SP 4CH (MOD) 15.52 ml - Diastolic/Systolic Function Name Value Normal Range MV E-wave Vmax 0.55 m/sec - MV deceleration time 200.89 msec - MV A-wave Vmax 0.68 m/sec - MV E:A ratio 0.82 ratio - Aortic Valve Name Value Normal Range AV Vmax 1.1 m/sec - AV VTI 15.9 cm - AV peak gradient 4.86 mmHg - AV mean gradient 2.59 mmHg - LVOT diameter 2 cm - LVOT Vmax 1.03 m/sec - LVOT VTI 15.87 cm - LVOT peak gradient 4.24 mmHg - LVOT mean gradient 2.41 mmHg - SV LVOT 49.77 ml - JOSÉ MIGUEL (continuity Vmax) 2.93 cm2 - JOSÉ MIGUEL (continuity VTI) 3.13 cm2 - Tricuspid Valve Name Value Normal Range TR Vmax 2.74 m/sec - TR peak gradient 303 mmHg - RAP 3 mmHg - RVSP 33 mmHg - IVC diameter 1.77 cm (1.2 - 2.3) Pulmonic Valve/Qp:Qs Name Value Normal Range PV Vmax 0.77 m/sec - PV peak gradient 2.4 mmHg - PV acceleration time 114.18 msec - Echocardiogram Limited Views 12/17/19 14:53 Transthoracic Echocardiogram Indication: R/O Vegetations BP: 144/83 HR: 133 Conclusions *Global left ventricular systolic function is mildly decreased. *The estimated ejection fraction is 45-50%. *A trivial pericardial effusion is visualized. Findings Left Ventricle: The left ventricular chamber size is normal. Global left ventricular systolic function is mildly decreased. The estimated ejection fraction is 45-50%. Left Atrium: The left atrial chamber size is normal. Right Ventricle: The right ventricular cavity size is normal. Right Atrium: The right atrial cavity size is normal. Aortic Valve: The aortic valve is not well visualized. There is no evidence of aortic regurgitation. Mitral Valve: The mitral valve leaflets are mildly thickened. There is trace of mitral regurgitation. Tricuspid Valve: The tricuspid valve leaflets are mildly thickened. There is trace tricuspid regurgitation. The right ventricular systolic pressure is calculated at 29 mmHg. Pulmonic Valve: The pulmonic valve is not well visualized. There is no evidence of pulmonic regurgitation. Pericardium: A trivial pericardial effusion is visualized. Aorta: There is no dilatation of the ascending aorta. There is no dilatation of the aortic root. Venous: The inferior vena cava appears normal in size. There is a greater than 50% respiratory change in the inferior vena cava dimension. Measurements Chambers 2D Name Value Normal Range IVSd (2D) 0.83 cm (0.6 - 1.1) LVPWd (2D) 0.98 cm (0.6 - 1.1) LVIDd (2D) 3.71 cm (3.7 - 5.6) LVIDs (2D) 2.93 cm (2 - 3.8) LV FS (2D) 21.12 % - EF Teichholz (2D) 43.71 % - Ao root diameter (2D) 3.02 cm (2 - 3.7) Volumes/Mass Name Value Normal Range LA ESV SP 4CH (A/L) 36.8 ml - LA ESV SP 2CH (A/L) 45.89 ml - LA ESV BP (A/L) 42.35 ml - LA ESV BP (A/L) index 26.63 ml/m2 - LA ESV SP 4CH (MOD) 34.42 ml - LA ESV SP 2CH (MOD) 44.21 ml - LA ESV BP (MOD) 39.82 ml - LA ESV BP (MOD) index 25.05 ml/m2 - Aortic Valve Name Value Normal Range LVOT diameter 1.63 cm - Tricuspid Valve Name Value Normal Range TR Vmax 2.56 m/sec - TR peak gradient 26 mmHg - RAP 3 mmHg - RVSP 29 mmHg - IVC diameter 1.83 cm (1.2 - 2.3) [place] Cruz/IV: Voiding Method Incontinent IV Catheter Type [Forearm] Peripheral IV IV Catheter Type [Left Forearm INT / Saline Lock ] IV Catheter Type [Right Peripheral IV Antecubital] IV Catheter Type [Right Hand] Peripheral IV IV Catheter Type [Right Wrist] Peripheral IV IV Catheter Type [Left Wrist] Peripheral IV IV Catheter Type [Left Peripheral IV Antecubital] IV Catheter Type [Right INT / Saline Lock Forearm] IV Catheter Type [Left Hand] Peripheral IV Active Medications - Current Medications Current Medications: Generic Name Dose Route Start Last Admin Trade Name Freq PRN Reason Stop Dose Admin Acetaminophen 650 mg 12/06/19 10:25 02/12/20 22:24 Tylenol FEEDTUBE 650 mg Q6H PRN Administration TEMP >/=100.3 Acetylcysteine 200 mg 02/10/20 14:00 02/13/20 09:16 Mucomyst Inhalation INHALATION 02/13/20 13:59 200 mg TIDRT LUCHO Administration Lipase/Protease/Amylase 1 each 11/23/19 11:[address] 10,500 Unit FEEDTUBE PRN PRN Use w/ sod bicarb for FT Bisacodyl 10 mg 02/06/20 13:57 Dulcolax RI QDAY PRN Constipation unrelieved by MOM Docusate Sodium 100 mg 02/06/20 22:00 02/13/20 11:41 Colace PO 100 mg BID LUCHO Administration Glycopyrrolate 2 mg 12/31/19 20:00 02/13/20 11:42 Robinul PO 2 mg TID LUCHO Administration Hydralazine HCl 10 mg 11/24/19 00:45 12/18/19 13:25 Apresoline IV 10 mg Q6H PRN Administration SBP > 160 Hydroxyzine Pamoate 25 mg 12/06/19 10:00 02/13/20 11:41 Vistaril PO 25 mg BID LUCHO Administration Lansoprazole 30 mg 11/27/19 10:00 02/13/20 11:41 Prevacid Solutab FEEDTUBE 30 mg QDAY LUCHO Administration Levalbuterol HCl 0.63 mg 01/24/20 14:00 02/13/20 09:16 Xopenex IH 0.63 mg Q6HRT LUCHO Administration Levetiracetam 500 mg 11/29/19 10:00 02/13/20 11:41 Keppra PO 500 mg BID LUCHO Administration Mirtazapine 30 mg 12/06/19 10:00 02/13/20 11:42 Remeron PO 30 mg DAILY LUCHO Administration Ondansetron HCl 4 mg 12/10/19 07:53 02/05/20 22:06 Zofran IV 4 mg Q4H PRN Administration Nausea And Vomiting Polyethylene Glycol 17 gm 02/06/20 13:57 Miralax 3350 PO QDAY PRN Constipation Quetiapine Fumarate 100 mg 01/09/20 21:41 02/12/20 22:25 Seroquel FEEDTUBE 100 mg QHS LUCHO Administration Scopolamine 1 each 02/08/20 15:00 02/11/20 14:59 Transderm-Scop TD 1 each Q3D LUCHO Administration Sertraline HCl 25 mg 01/01/20 10:00 02/13/20 11:41 Zoloft PO 25 mg QDAY LUCHO Administration Simple Syrup 15 ml 11/23/19 11:50 Simple Syrup FEEDTUBE PRN PRN Hypoglycemia BG<70 Simple Syrup 30 ml 11/23/19 11:50 Simple Syrup FEEDTUBE PRN PRN Hypoglycemia Sodium Bicarbonate 325 mg 11/23/19 11:50 Sodium Bicarbonate FEEDTUBE PRN PRN For Clogged Feeding Tube Nutrition/Malnutrition Assess - Dietary Evaluation Nutrition/Malnutrition Findings: Nutrition Notes Start: 11/23/19 11:29 Freq: Status: Active Protocol: Document 02/12/20 15:17 LM (Rec: 02/12/20 15:20 LM [id number]) Nutrition Notes Initial or Follow up Reassessment Current Diagnosis Hypertension Other Pertinent Diagnosis Cardaic arrest, ETOH dependence, UTI Current Diet Jevity 1.2 at 60ml/hr Labs/Tests Reviewed Pertinent Medications Reviewed Height 5 ft 6 in Weight 49.2 kg Dendron Body Weight (kg) 59.09 BMI 17.5 Subjective/Other Information Pt receiving Jevity at 55ml/hr . Spoke to RN. RN will increase rate to 60. Burn Absent Trauma Absent GI Symptoms None Current % PO Negligible Minimum of two criteria Yes Interpretation of Weight Loss (severe) >2% in 1 week Muscle Mass Mild Depletion (non-severe) #2 Nutrition Diagnosis Malnutrition Diagnosis Progress(for reassessment Continues documentation) #1 Nutrition Diagnosis Inadequate oral intake Diagnosis Progress(for reassessment Continues documentation) Is patient on ventilator? No Is Patient Ambulatory and/or Out of Bed No REE-([facility] or-confined to bed) 1335.096 Kcal/Kg value to use for calculation 37 Approximate Energy Requirements Using 1820 kcal/Kg Calculation Used for Recommendations Kcal/kg Additional Notes Protein: 60-75g (1.2-1.5g/kg) Fluid: 1 ml/kcal Nutrition Intervention Change Diet Order: Continue TF Nutrition Support: Change to Jevity 1.2 at 60ml/ hr Flush 100ml q4h Kcal 1,728 Protein (gm) 80 Fluid (mL) 1,162 Goal #1 TF tolerance Goal #2 Meet at least 80% of energy and protein needs via TF Anticipated Discharge Needs: TF Follow-Up By: 02/14/20 Additional Comments F/U for TF tolerance, wt
--- NOTE | 2020-02-13 13:38 | Progress Note ---
Assessment and Plan Acute cardiopulmonary arrest with ROSC Acute hypoxemic respiratory failure on MVS Acute metabolic-toxic encephalopathy Metabolic acidosis/alcoholic acidosis/Lactic acidosis Ischemic hepatitis Leucocytosis with lactic acidosis Tobacco use disorder ALcohol use Disorder Hypokalemia High grade fevers - spoke with community health worker and CNO and they will facilitate visit. - continue scopolamine patch - continue mucomyst nebs - continue PMV trials as tolerated - advance diet per [employer] - no new issues; continue care as below otherwise - repeat CXR prn at this point - Continue to wean supplemental oxygen for target O2 sat's > 90% - continue bronchodilators with routine trach care and pulmonary hygiene per RT - Slow Seroquel taper - consider Provigil - s/p Antibiotics per ID recommendations - continue Reglan for G.I. motility - Continue VTE and Stress ulcer prophylaxis - Continue enteric nutritional support - Monitor glycemic control, with target blood glucose 140-180 mg/dL while criti kailey ill (Avoid hypoglycemia) - ABG and CXR prn - Continue to avoid nephrotoxins, adjust all medications fro GFR and CrCL - Continue to avoid benzodiazepines , as much as possible, to reduce the poss ibility of delirium - Continue prn analgesia per CPOT score - Continue to maintain of sleep-wake cycle, avoid delirium - PT/OT/ROM exercises- awaiting PT/OT evaluation - Continue mobility protocol and skin assessment per protocol for pressure ulcer prevention - Continue to monitor for clinical seizures - Continue Nicotine withdrawal precautions, alcohol withdrawal precautions - continue other care per attending / other consultants - continue discharge planning ..... re-evaluate in am & prn CONDITION: STABLE PROGNOSIS: IMPROVED CODE STATUS: FULL CODE Subjective Date of service: 02/13/20 Principal diagnosis: Ac cardiopulmonary arrest; Ac hypoxemic resp failure; Acute encephalopathy Interval history: Patient is seen today for: Acute cardiopulmonary arrest with ROSC; Acute hypoxemic respiratory failure; Acute metabolic-toxic encephalopathy; Ischemic hepatitis; Leucocytosis with lactic acidosis; Tobacco use disorder; Alcohol use Disorder; Hypokalemia; High grade fevers Seen and examined at bedside; 24hour events reviewed; nursing and respiratory care staff consulted; no adverse overnight events reported to me; resting peacefully in bed; spoke with her mother regarding CODE status and she would like to visit her daughter to help decide Objective Vital Signs - 12hr 02/13/20 02/13/20 02/13/20 03:33 04:00 06:55 Temperature 97.2 F L Pulse Rate 98 H Pulse Rate [ Posterior Bilateral Throughout] Respiratory 22 Rate Respiratory Rate [Posterior Bilateral Throughout] Blood Pressure Blood Pressure 115/98 [Left] O2 Sat by Pulse 100 Oximetry O2 Sat by Pulse 100 Oximetry [ Assessment] 02/13/20 02/13/20 02/13/20 07:58 09:15 09:16 Temperature 97.9 F Pulse Rate 98 H Pulse Rate [ 98 H Posterior Bilateral Throughout] Respiratory 18 Rate Respiratory 20 Rate [Posterior Bilateral Throughout] Blood Pressure 102/67 Blood Pressure [Left] O2 Sat by Pulse 99 99 Oximetry O2 Sat by Pulse Oximetry [ Assessment] 02/13/20 12:16 Temperature 98.1 F Pulse Rate 118 H Pulse Rate [ Posterior Bilateral Throughout] Respiratory 18 Rate Respiratory Rate [Posterior Bilateral Throughout] Blood Pressure 116/79 Blood Pressure [Left] O2 Sat by Pulse 99 Oximetry O2 Sat by Pulse Oximetry [ Assessment] Constitutional: no acute distress, other (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, with midline tracheostomy and with normal respiratory effort at rest) Eyes: non-icteric ENT: oropharynx moist, other (s/p trach) Neck: supple, no lymphadenopathy, no JVD Effort: normal Ascultation: Bilateral: diminished breath sounds, rhonchi Percussion: Bilateral: not dull Cardiovascular: regular rate and rhythm (tachycardia), other (S1,S2) Gastrointestinal: normoactive bowel sounds, soft, non-tender, non-distended Integumentary: normal Extremities: no cyanosis, no edema, pulses normal, no ischemia or petechiae Neurologic: normal mental status, non-focal exam, pupils equal and round Psychiatric: mood appropriate, affect normal CBC and BMP: 02/08/20 07:55 02/08/20 08:52 ABG, PT/INR, D-dimer: ABG ABG pH 7.429 pH Units (7.350-7.450) 01/09/20 08:51 ABG pCO2 39.1 mm Hg 01/09/20 08:51 ABG pO2 94.3 mm Hg (80.0-90.0) H 01/09/20 08:51 ABG O2 Saturation 97.4 % (95.0-99.0) 01/09/20 08:51 PT/INR, D-dimer PT 17.0 Sec. (12.2-14.9) H 11/23/19 03:47 INR 1.36 (0.87-1.13) H 11/23/19 03:47 Abnormal lab findings: Abnormal Labs 11/22/19 11/22/19 11/22/19 23:17 23:18 23:27 WBC 21.2 H RBC 3.59 L Hgb 9.8 L Hct MCH 27 L RDW 18.6 H Plt Count 454 H Lymph % (Auto) [place] % (Auto) [place] # Baso # Seg Neutrophils % Seg Neuts % (Manual) 86.0 H Lymphocytes % (Manual) 9.0 L Monocytes % (Manual) Seg Neutrophils # Seg Neutrophils # Man 18.2 H Lymphocytes # (Manual) Monocytes # (Manual) 1.1 H Eosinophils # (Manual) Basophils # (Manual) PT INR APTT ABG pH ABG pO2 ABG HCO3 ABG O2 Saturation ABG Base Excess ABG Hemoglobin Oxyhemoglobin Sodium Potassium Chloride Carbon Dioxide BUN Creatinine Glucose POC Glucose 53 L Lactic Acid Calcium Ionized Calcium Phosphorus Magnesium Total Bilirubin AST ALT Alkaline Phosphatase Ammonia Total Creatine Kinase CK-MB (CK-2) CK-MB (CK-2) Rel Index Total Protein Albumin Urine WBC (Auto) 40.0 H Vancomycin Trough Salicylates Acetaminophen Plasma/Serum Alcohol Crossmatch 11/22/19 11/22/19 11/22/19 23:27 23:27 23:27 WBC RBC Hgb Hct MCH RDW Plt Count Lymph % (Auto) [place] % (Auto) [place] # Baso # Seg Neutrophils % Seg Neuts % (Manual) Lymphocytes % (Manual) Monocytes % (Manual) Seg Neutrophils # Seg Neutrophils # Man Lymphocytes # (Manual) Monocytes # (Manual) Eosinophils # (Manual) Basophils # (Manual) PT INR APTT ABG pH ABG pO2 ABG HCO3 ABG O2 Saturation ABG Base Excess ABG Hemoglobin Oxyhemoglobin Sodium Potassium 2.4 L* Chloride 85.1 L Carbon Dioxide 19 L BUN Creatinine 0.5 L Glucose 261 H POC Glucose Lactic Acid Calcium Ionized Calcium Phosphorus Magnesium Total Bilirubin AST 609 H ALT 152 H Alkaline Phosphatase 160 H Ammonia 117.0 H Total Creatine Kinase 139 H CK-MB (CK-2) 8.3 H CK-MB (CK-2) Rel Index 5.9 H Total Protein Albumin 3.6 L Urine WBC (Auto) Vancomycin Trough Salicylates < 0.3 L Acetaminophen Plasma/Serum Alcohol Crossmatch 11/22/19 11/22/19 11/23/19 23:27 23:27 01:10 WBC RBC Hgb Hct MCH RDW Plt Count Lymph % (Auto) [place] % (Auto) [place] # Baso # Seg Neutrophils % Seg Neuts % (Manual) Lymphocytes % (Manual) Monocytes % (Manual) Seg Neutrophils # Seg Neutrophils # Man Lymphocytes # (Manual) Monocytes # (Manual) Eosinophils # (Manual) Basophils # (Manual) PT INR APTT ABG pH 7.273 L ABG pO2 209.7 H ABG HCO3 ABG O2 Saturation 99.2 H ABG Base Excess -3.9 L ABG Hemoglobin 10.6 L Oxyhemoglobin 93.9 L Sodium Potassium Chloride Carbon Dioxide BUN Creatinine Glucose POC Glucose Lactic Acid Calcium Ionized Calcium Phosphorus Magnesium Total Bilirubin AST ALT Alkaline Phosphatase Ammonia Total Creatine Kinase CK-MB (CK-2) CK-MB (CK-2) Rel Index Total Protein Albumin Urine WBC (Auto) Vancomycin Trough Salicylates Acetaminophen < 5.0 L Plasma/Serum Alcohol 0.08 H Crossmatch 11/23/19 11/23/19 11/23/19 01:19 01:19 03:47 WBC RBC Hgb Hct MCH RDW Plt Count Lymph % (Auto) [place] % (Auto) [place] # Baso # Seg Neutrophils % Seg Neuts % (Manual) Lymphocytes % (Manual) Monocytes % (Manual) Seg Neutrophils # Seg Neutrophils # Man Lymphocytes # (Manual) Monocytes # (Manual) Eosinophils # (Manual) Basophils # (Manual) PT 16.3 H INR 1.29 H APTT ABG pH ABG pO2 ABG HCO3 ABG O2 Saturation ABG Base Excess ABG Hemoglobin Oxyhemoglobin Sodium Potassium Chloride Carbon Dioxide BUN Creatinine Glucose POC Glucose Lactic Acid 2.10 H* 5.00 H* Calcium Ionized Calcium Phosphorus Magnesium Total Bilirubin AST ALT Alkaline Phosphatase Ammonia Total Creatine Kinase CK-MB (CK-2) CK-MB (CK-2) Rel Index Total Protein Albumin Urine WBC (Auto) Vancomycin Trough Salicylates Acetaminophen Plasma/Serum Alcohol Crossmatch 11/23/19 11/23/19 11/23/19 03:47 03:47 04:53 WBC RBC Hgb 9.4 L Hct MCH RDW Plt Count Lymph % (Auto) [place] % (Auto) [place] # Baso # Seg Neutrophils % Seg Neuts % (Manual) Lymphocytes % (Manual) Monocytes % (Manual) Seg Neutrophils # Seg Neutrophils # Man Lymphocytes # (Manual) Monocytes # (Manual) Eosinophils # (Manual) Basophils # (Manual) PT 17.0 H INR 1.36 H APTT 128.2 H* ABG pH ABG pO2 ABG HCO3 ABG O2 Saturation ABG Base Excess ABG Hemoglobin Oxyhemoglobin Sodium Potassium Chloride Carbon Dioxide 18 L BUN Creatinine 0.5 L Glucose 105 H POC Glucose Lactic Acid Calcium 8.3 L Ionized Calcium Phosphorus 2.40 L Magnesium Total Bilirubin 1.30 H AST 761 H ALT 158 H Alkaline Phosphatase 143 H Ammonia Total Creatine Kinase CK-MB (CK-2) CK-MB (CK-2) Rel Index Total Protein Albumin 2.8 L Urine WBC (Auto) Vancomycin Trough Salicylates Acetaminophen Plasma/Serum Alcohol Crossmatch 11/23/19 11/23/19 11/23/19 05:12 06:32 06:32 WBC 16.8 H RBC 3.31 L Hgb 8.9 L Hct 28.7 L MCH 27 L RDW 18.6 H Plt Count Lymph % (Auto) [place] % (Auto) [place] # Baso # Seg Neutrophils % Seg Neuts % (Manual) 94.0 H Lymphocytes % (Manual) 1.0 L Monocytes % (Manual) Seg Neutrophils # Seg Neutrophils # Man 15.8 H Lymphocytes # (Manual) 0.2 L Monocytes # (Manual) Eosinophils # (Manual) Basophils # (Manual) PT INR APTT ABG pH ABG pO2 ABG HCO3 ABG O2 Saturation ABG Base Excess -3.2 L ABG Hemoglobin 9.0 L Oxyhemoglobin 93.6 L Sodium Potassium Chloride Carbon Dioxide BUN Creatinine Glucose POC Glucose Lactic Acid Calcium Ionized Calcium 4.5 L Phosphorus Magnesium Total Bilirubin AST ALT Alkaline Phosphatase Ammonia Total Creatine Kinase CK-MB (CK-2) CK-MB (CK-2) Rel Index Total Protein Albumin Urine WBC (Auto) Vancomycin Trough Salicylates Acetaminophen Plasma/Serum Alcohol Crossmatch 11/23/19 11/24/19 11/24/19 06:32 04:35 04:35 WBC RBC Hgb Hct MCH RDW Plt Count Lymph % (Auto) [place] % (Auto) [place] # Baso # Seg Neutrophils % Seg Neuts % (Manual) Lymphocytes % (Manual) Monocytes % (Manual) Seg Neutrophils # Seg Neutrophils # Man Lymphocytes # (Manual) Monocytes # (Manual) Eosinophils # (Manual) Basophils # (Manual) PT INR APTT ABG pH ABG pO2 ABG HCO3 ABG O2 Saturation ABG Base Excess ABG Hemoglobin Oxyhemoglobin Sodium Potassium Chloride Carbon Dioxide BUN Creatinine Glucose POC Glucose Lactic Acid 3.30 H* Calcium Ionized Calcium Phosphorus Magnesium 1.40 L Total Bilirubin AST ALT Alkaline Phosphatase Ammonia 98.0 H Total Creatine Kinase CK-MB (CK-2) CK-MB (CK-2) Rel Index Total Protein Albumin Urine WBC (Auto) Vancomycin Trough Salicylates Acetaminophen Plasma/Serum Alcohol Crossmatch 11/24/19 11/25/19 11/25/19 05:22 04:34 05:05 WBC 17.3 H RBC 2.88 L Hgb 7.8 L Hct 24.6 L MCH 27 L RDW 18.5 H Plt Count Lymph % (Auto) 7.7 L [place] % (Auto) 9.7 H [place] # 1.7 H Baso # Seg Neutrophils % 82.2 H Seg Neuts % (Manual) Lymphocytes % (Manual) Monocytes % (Manual) Seg Neutrophils # 14.2 H Seg Neutrophils # Man Lymphocytes # (Manual) Monocytes # (Manual) Eosinophils # (Manual) Basophils # (Manual) PT INR APTT ABG pH 7.475 H ABG pO2 ABG HCO3 29.4 H 32.3 H ABG O2 Saturation ABG Base Excess 5.4 H 6.9 H ABG Hemoglobin 9.0 L 10.6 L Oxyhemoglobin 94.3 L Sodium Potassium Chloride Carbon Dioxide BUN Creatinine Glucose POC Glucose Lactic Acid Calcium Ionized Calcium Phosphorus Magnesium Total Bilirubin AST ALT Alkaline Phosphatase Ammonia Total Creatine Kinase CK-MB (CK-2) CK-MB (CK-2) Rel Index Total Protein Albumin Urine WBC (Auto) Vancomycin Trough Salicylates Acetaminophen Plasma/Serum Alcohol Crossmatch 11/25/19 11/25/19 11/26/19 05:05 22:46 03:31 WBC RBC Hgb Hct MCH RDW Plt Count Lymph % (Auto) [place] % (Auto) [place] # Baso # Seg Neutrophils % Seg Neuts % (Manual) Lymphocytes % (Manual) Monocytes % (Manual) Seg Neutrophils # Seg Neutrophils # Man Lymphocytes # (Manual) Monocytes # (Manual) Eosinophils # (Manual) Basophils # (Manual) PT INR APTT ABG pH 7.459 H ABG pO2 ABG HCO3 34.2 H ABG O2 Saturation ABG Base Excess 9.4 H ABG Hemoglobin 7.6 L Oxyhemoglobin 94.8 L Sodium 152 H D 147 H Potassium 2.3 L* D 2.8 L* D Chloride 107.8 H Carbon Dioxide 31 H D 33 H BUN Creatinine 0.6 L 0.6 L Glucose 148 H 177 H POC Glucose Lactic Acid Calcium Ionized Calcium Phosphorus Magnesium Total Bilirubin AST 105 H ALT 71 H Alkaline Phosphatase 155 H Ammonia Total Creatine Kinase CK-MB (CK-2) CK-MB (CK-2) Rel Index Total Protein 5.2 L D Albumin 2.9 L Urine WBC (Auto) Vancomycin Trough Salicylates Acetaminophen Plasma/Serum Alcohol Crossmatch 11/26/19 11/26/19 11/27/19 08:24 08:24 04:20 WBC 12.0 H RBC 3.00 L Hgb 8.0 L 9.3 L Hct 25.9 L 29.7 L MCH 27 L RDW 18.5 H Plt Count Lymph % (Auto) [place] % (Auto) [place] # Baso # Seg Neutrophils % Seg Neuts % (Manual) 89.0 H Lymphocytes % (Manual) 4.0 L Monocytes % (Manual) Seg Neutrophils # Seg Neutrophils # Man 10.7 H Lymphocytes # (Manual) 0.5 L Monocytes # (Manual) Eosinophils # (Manual) Basophils # (Manual) PT INR APTT ABG pH ABG pO2 ABG HCO3 ABG O2 Saturation ABG Base Excess ABG Hemoglobin Oxyhemoglobin Sodium 146 H Potassium 3.4 L D Chloride Carbon Dioxide BUN Creatinine 0.5 L Glucose 165 H POC Glucose Lactic Acid Calcium Ionized Calcium Phosphorus Magnesium Total Bilirubin AST 57 H ALT Alkaline Phosphatase 166 H Ammonia Total Creatine Kinase CK-MB (CK-2) CK-MB (CK-2) Rel Index Total Protein Albumin 2.9 L Urine WBC (Auto) Vancomycin Trough Salicylates Acetaminophen Plasma/Serum Alcohol Crossmatch 11/27/19 11/27/19 11/27/19 04:28 04:28 04:42 WBC RBC Hgb Hct MCH RDW Plt Count Lymph % (Auto) [place] % (Auto) [place] # Baso # Seg Neutrophils % Seg Neuts % (Manual) Lymphocytes % (Manual) Monocytes % (Manual) Seg Neutrophils # Seg Neutrophils # Man Lymphocytes # (Manual) Monocytes # (Manual) Eosinophils # (Manual) Basophils # (Manual) PT INR APTT ABG pH 7.470 H ABG pO2 74.0 L ABG HCO3 33.8 H ABG O2 Saturation ABG Base Excess 9.1 H ABG Hemoglobin 8.7 L Oxyhemoglobin 94.7 L Sodium 146 H Potassium 2.9 L* Chloride Carbon Dioxide BUN 25 H Creatinine Glucose 213 H POC Glucose Lactic Acid Calcium Ionized Calcium Phosphorus 1.00 L Magnesium Total Bilirubin AST ALT Alkaline Phosphatase Ammonia Total Creatine Kinase CK-MB (CK-2) CK-MB (CK-2) Rel Index Total Protein Albumin Urine WBC (Auto) Vancomycin Trough Salicylates Acetaminophen Plasma/Serum Alcohol Crossmatch 11/27/19 11/27/19 11/27/19 05:37 12:20 15:46 WBC RBC Hgb Hct MCH RDW Plt Count Lymph % (Auto) [place] % (Auto) [place] # Baso # Seg Neutrophils % Seg Neuts % (Manual) Lymphocytes % (Manual) Monocytes % (Manual) Seg Neutrophils # Seg Neutrophils # Man Lymphocytes # (Manual) Monocytes # (Manual) Eosinophils # (Manual) Basophils # (Manual) PT INR APTT ABG pH ABG pO2 ABG HCO3 ABG O2 Saturation ABG Base Excess ABG Hemoglobin Oxyhemoglobin Sodium 146 H Potassium 3.5 L D Chloride Carbon Dioxide BUN 24 H Creatinine 0.6 L Glucose 187 H POC Glucose 117 H 220 H Lactic Acid Calcium Ionized Calcium Phosphorus Magnesium Total Bilirubin AST ALT Alkaline Phosphatase Ammonia Total Creatine Kinase CK-MB (CK-2) CK-MB (CK-2) Rel Index Total Protein Albumin Urine WBC (Auto) Vancomycin Trough Salicylates Acetaminophen Plasma/Serum Alcohol Crossmatch 11/27/19 11/28/19 11/28/19 17:28 05:00 05:02 WBC RBC Hgb Hct MCH RDW Plt Count Lymph % (Auto) [place] % (Auto) [place] # Baso # Seg Neutrophils % Seg Neuts % (Manual) Lymphocytes % (Manual) Monocytes % (Manual) Seg Neutrophils # Seg Neutrophils # Man Lymphocytes # (Manual) Monocytes # (Manual) Eosinophils # (Manual) Basophils # (Manual) PT INR APTT ABG pH ABG pO2 72.4 L ABG HCO3 33.6 H ABG O2 Saturation 94.1 L ABG Base Excess 7.3 H ABG Hemoglobin Oxyhemoglobin 91.8 L Sodium 146 H Potassium 3.3 L Chloride Carbon Dioxide BUN 25 H Creatinine 0.6 L Glucose 176 H POC Glucose 198 H Lactic Acid Calcium Ionized Calcium Phosphorus Magnesium Total Bilirubin AST ALT Alkaline Phosphatase Ammonia Total Creatine Kinase CK-MB (CK-2) CK-MB (CK-2) Rel Index Total Protein Albumin Urine WBC (Auto) Vancomycin Trough Salicylates Acetaminophen Plasma/Serum Alcohol Crossmatch 11/28/19 11/28/19 11/29/19 05:02 18:55 10:43 WBC 15.2 H 19.0 H RBC 3.06 L 3.01 L Hgb 8.3 L 8.3 L Hct 27.0 L 26.4 L MCH 27 L RDW 19.0 H 19.7 H Plt Count 479 H 611 H Lymph % (Auto) [place] % (Auto) [place] # Baso # Seg Neutrophils % Seg Neuts % (Manual) 92.0 H Lymphocytes % (Manual) 2.0 L Monocytes % (Manual) Seg Neutrophils # Seg Neutrophils # Man 14.0 H Lymphocytes # (Manual) 0.3 L Monocytes # (Manual) Eosinophils # (Manual) Basophils # (Manual) PT INR APTT ABG pH ABG pO2 ABG HCO3 ABG O2 Saturation ABG Base Excess ABG Hemoglobin Oxyhemoglobin Sodium Potassium Chloride Carbon Dioxide BUN Creatinine Glucose POC Glucose 138 H Lactic Acid Calcium Ionized Calcium Phosphorus Magnesium Total Bilirubin AST ALT Alkaline Phosphatase Ammonia Total Creatine Kinase CK-MB (CK-2) CK-MB (CK-2) Rel Index Total Protein Albumin Urine WBC (Auto) Vancomycin Trough Salicylates Acetaminophen Plasma/Serum Alcohol Crossmatch 11/29/19 11/29/19 11/29/19 10:43 12:27 19:25 WBC RBC Hgb Hct MCH RDW Plt Count Lymph % (Auto) [place] % (Auto) [place] # Baso # Seg Neutrophils % Seg Neuts % (Manual) Lymphocytes % (Manual) Monocytes % (Manual) Seg Neutrophils # Seg Neutrophils # Man Lymphocytes # (Manual) Monocytes # (Manual) Eosinophils # (Manual) Basophils # (Manual) PT INR APTT ABG pH ABG pO2 ABG HCO3 ABG O2 Saturation ABG Base Excess ABG Hemoglobin Oxyhemoglobin Sodium Potassium 2.8 L* Chloride Carbon Dioxide BUN 20 H Creatinine 0.5 L Glucose 121 H POC Glucose 128 H 120 H Lactic Acid Calcium Ionized Calcium Phosphorus Magnesium Total Bilirubin AST ALT Alkaline Phosphatase Ammonia Total Creatine Kinase CK-MB (CK-2) CK-MB (CK-2) Rel Index Total Protein Albumin Urine WBC (Auto) Vancomycin Trough Salicylates Acetaminophen Plasma/Serum Alcohol Crossmatch 11/29/19 11/30/19 11/30/19 23:46 04:10 05:02 WBC RBC Hgb Hct MCH RDW Plt Count Lymph % (Auto) [place] % (Auto) [place] # Baso # Seg Neutrophils % Seg Neuts % (Manual) Lymphocytes % (Manual) Monocytes % (Manual) Seg Neutrophils # Seg Neutrophils # Man Lymphocytes # (Manual) Monocytes # (Manual) Eosinophils # (Manual) Basophils # (Manual) PT INR APTT ABG pH ABG pO2 76.3 L ABG HCO3 32.5 H ABG O2 Saturation ABG Base Excess 6.9 H ABG Hemoglobin 8.0 L Oxyhemoglobin 92.6 L Sodium Potassium Chloride Carbon Dioxide BUN Creatinine Glucose POC Glucose 116 H 128 H Lactic Acid Calcium Ionized Calcium Phosphorus Magnesium Total Bilirubin AST ALT Alkaline Phosphatase Ammonia Total Creatine Kinase CK-MB (CK-2) CK-MB (CK-2) Rel Index Total Protein Albumin Urine WBC (Auto) Vancomycin Trough Salicylates Acetaminophen Plasma/Serum Alcohol Crossmatch 11/30/19 11/30/19 11/30/19 05:25 05:25 12:59 WBC 18.4 H RBC 3.10 L Hgb 8.5 L Hct 27.5 L MCH 27 L RDW 20.9 H Plt Count 691 H Lymph % (Auto) 7.1 L [place] % (Auto) 7.7 H [place] # 1.4 H Baso # Seg Neutrophils % 83.4 H Seg Neuts % (Manual) Lymphocytes % (Manual) Monocytes % (Manual) Seg Neutrophils # 15.4 H Seg Neutrophils # Man Lymphocytes # (Manual) Monocytes # (Manual) Eosinophils # (Manual) Basophils # (Manual) PT INR APTT ABG pH ABG pO2 ABG HCO3 ABG O2 Saturation ABG Base Excess ABG Hemoglobin Oxyhemoglobin Sodium 146 H Potassium Chloride 107.2 H Carbon Dioxide BUN Creatinine 0.5 L Glucose 132 H POC Glucose 124 H Lactic Acid Calcium Ionized Calcium Phosphorus Magnesium Total Bilirubin AST 246 H ALT 274 H Alkaline Phosphatase 203 H Ammonia Total Creatine Kinase CK-MB (CK-2) CK-MB (CK-2) Rel Index Total Protein 5.4 L Albumin 2.9 L Urine WBC (Auto) Vancomycin Trough Salicylates Acetaminophen Plasma/Serum Alcohol Crossmatch 11/30/19 12/01/19 12/01/19 17:53 00:05 05:10 WBC RBC Hgb Hct MCH RDW Plt Count Lymph % (Auto) [place] % (Auto) [place] # Baso # Seg Neutrophils % Seg Neuts % (Manual) Lymphocytes % (Manual) Monocytes % (Manual) Seg Neutrophils # Seg Neutrophils # Man Lymphocytes # (Manual) Monocytes # (Manual) Eosinophils # (Manual) Basophils # (Manual) PT INR APTT ABG pH ABG pO2 ABG HCO3 ABG O2 Saturation ABG Base Excess ABG Hemoglobin Oxyhemoglobin Sodium Potassium Chloride Carbon Dioxide BUN Creatinine Glucose POC Glucose 113 H 143 H 145 H Lactic Acid Calcium Ionized Calcium Phosphorus Magnesium Total Bilirubin AST ALT Alkaline Phosphatase Ammonia Total Creatine Kinase CK-MB (CK-2) CK-MB (CK-2) Rel Index Total Protein Albumin Urine WBC (Auto) Vancomycin Trough Salicylates Acetaminophen Plasma/Serum Alcohol Crossmatch 12/01/19 12/01/19 12/01/19 05:33 08:23 08:23 WBC 22.7 H RBC 2.88 L Hgb 7.9 L Hct 25.2 L MCH 27 L RDW 21.0 H Plt Count 732 H Lymph % (Auto) [place] % (Auto) [place] # Baso # Seg Neutrophils % Seg Neuts % (Manual) 91.0 H Lymphocytes % (Manual) 3.0 L Monocytes % (Manual) Seg Neutrophils # Seg Neutrophils # Man 20.7 H Lymphocytes # (Manual) 0.7 L Monocytes # (Manual) 1.1 H Eosinophils # (Manual) Basophils # (Manual) PT INR APTT ABG pH ABG pO2 68.6 L ABG HCO3 34.1 H ABG O2 Saturation ABG Base Excess 9.0 H ABG Hemoglobin 6.5 L Oxyhemoglobin 94.7 L Sodium Potassium Chloride Carbon Dioxide BUN Creatinine 0.5 L Glucose 125 H POC Glucose Lactic Acid Calcium Ionized Calcium Phosphorus Magnesium Total Bilirubin AST ALT Alkaline Phosphatase Ammonia Total Creatine Kinase CK-MB (CK-2) CK-MB (CK-2) Rel Index Total Protein Albumin Urine WBC (Auto) Vancomycin Trough Salicylates Acetaminophen Plasma/Serum Alcohol Crossmatch 12/01/19 12/01/19 12/01/19 13:21 17:54 20:59 WBC RBC Hgb Hct MCH RDW Plt Count Lymph % (Auto) [place] % (Auto) [place] # Baso # Seg Neutrophils % Seg Neuts % (Manual) Lymphocytes % (Manual) Monocytes % (Manual) Seg Neutrophils # Seg Neutrophils # Man Lymphocytes # (Manual) Monocytes # (Manual) Eosinophils # (Manual) Basophils # (Manual) PT INR APTT ABG pH ABG pO2 78.3 L ABG HCO3 33.8 H ABG O2 Saturation 94.9 L ABG Base Excess 7.9 H ABG Hemoglobin 11.5 L Oxyhemoglobin 92.3 L Sodium Potassium Chloride Carbon Dioxide BUN Creatinine Glucose POC Glucose 111 H 115 H Lactic Acid Calcium Ionized Calcium Phosphorus Magnesium Total Bilirubin AST ALT Alkaline Phosphatase Ammonia Total Creatine Kinase CK-MB (CK-2) CK-MB (CK-2) Rel Index Total Protein Albumin Urine WBC (Auto) Vancomycin Trough Salicylates Acetaminophen Plasma/Serum Alcohol Crossmatch 12/02/19 12/03/19 12/04/19 12:55 20:00 04:26 WBC 15.2 H RBC 2.69 L Hgb 7.4 L Hct 23.6 L MCH 27 L RDW 19.9 H Plt Count 838 H Lymph % (Auto) [place] % (Auto) [place] # Baso # Seg Neutrophils % Seg Neuts % (Manual) Lymphocytes % (Manual) Monocytes % (Manual) Seg Neutrophils # Seg Neutrophils # Man Lymphocytes # (Manual) Monocytes # (Manual) Eosinophils # (Manual) Basophils # (Manual) PT INR APTT ABG pH ABG pO2 68.3 L ABG HCO3 33.5 H ABG O2 Saturation 93.5 L ABG Base Excess 8.4 H ABG Hemoglobin 7.3 L Oxyhemoglobin 90.9 L Sodium Potassium Chloride Carbon Dioxide BUN Creatinine Glucose POC Glucose 107 H Lactic Acid Calcium Ionized Calcium Phosphorus Magnesium Total Bilirubin AST ALT Alkaline Phosphatase Ammonia Total Creatine Kinase CK-MB (CK-2) CK-MB (CK-2) Rel Index Total Protein Albumin Urine WBC (Auto) Vancomycin Trough Salicylates Acetaminophen Plasma/Serum Alcohol Crossmatch 12/04/19 12/04/19 12/04/19 04:26 07:45 12:02 WBC 15.9 H RBC 2.88 L Hgb 7.9 L Hct 25.1 L MCH RDW 20.4 H Plt Count 839 H Lymph % (Auto) 11.3 L [place] % (Auto) 15.2 H [place] # 2.4 H Baso # Seg Neutrophils % 72.4 H Seg Neuts % (Manual) Lymphocytes % (Manual) Monocytes % (Manual) Seg Neutrophils # 11.5 H Seg Neutrophils # Man Lymphocytes # (Manual) Monocytes # (Manual) Eosinophils # (Manual) Basophils # (Manual) PT INR APTT ABG pH ABG pO2 ABG HCO3 ABG O2 Saturation ABG Base Excess ABG Hemoglobin Oxyhemoglobin Sodium Potassium Chloride 96.5 L Carbon Dioxide BUN 21 H Creatinine 0.6 L Glucose 107 H POC Glucose 138 H Lactic Acid Calcium Ionized Calcium Phosphorus Magnesium Total Bilirubin AST ALT Alkaline Phosphatase Ammonia Total Creatine Kinase CK-MB (CK-2) CK-MB (CK-2) Rel Index Total Protein Albumin Urine WBC (Auto) Vancomycin Trough Salicylates Acetaminophen Plasma/Serum Alcohol Crossmatch 12/04/19 12/05/19 12/05/19 18:16 11:55 18:36 WBC RBC Hgb Hct MCH RDW Plt Count Lymph % (Auto) [place] % (Auto) [place] # Baso # Seg Neutrophils % Seg Neuts % (Manual) Lymphocytes % (Manual) Monocytes % (Manual) Seg Neutrophils # Seg Neutrophils # Man Lymphocytes # (Manual) Monocytes # (Manual) Eosinophils # (Manual) Basophils # (Manual) PT INR APTT ABG pH ABG pO2 ABG HCO3 ABG O2 Saturation ABG Base Excess ABG Hemoglobin Oxyhemoglobin Sodium Potassium Chloride Carbon Dioxide BUN Creatinine Glucose POC Glucose 135 H 125 H 135 H Lactic Acid Calcium Ionized Calcium Phosphorus Magnesium Total Bilirubin AST ALT Alkaline Phosphatase Ammonia Total Creatine Kinase CK-MB (CK-2) CK-MB (CK-2) Rel Index Total Protein Albumin Urine WBC (Auto) Vancomycin Trough Salicylates Acetaminophen Plasma/Serum Alcohol Crossmatch 12/05/19 12/06/19 12/06/19 23:30 04:14 05:43 WBC RBC Hgb Hct MCH RDW Plt Count Lymph % (Auto) [place] % (Auto) [place] # Baso # Seg Neutrophils % Seg Neuts % (Manual) Lymphocytes % (Manual) Monocytes % (Manual) Seg Neutrophils # Seg Neutrophils # Man Lymphocytes # (Manual) Monocytes # (Manual) Eosinophils # (Manual) Basophils # (Manual) PT INR APTT ABG pH ABG pO2 ABG HCO3 ABG O2 Saturation ABG Base Excess ABG Hemoglobin Oxyhemoglobin Sodium Potassium 5.6 H Chloride 95.0 L Carbon Dioxide BUN 48 H Creatinine 1.3 H D Glucose POC Glucose 126 H 121 H Lactic Acid Calcium Ionized Calcium Phosphorus Magnesium Total Bilirubin AST 89 H ALT 98 H Alkaline Phosphatase 476 H Ammonia Total Creatine Kinase CK-MB (CK-2) CK-MB (CK-2) Rel Index Total Protein Albumin 2.8 L Urine WBC (Auto) Vancomycin Trough Salicylates Acetaminophen Plasma/Serum Alcohol Crossmatch 12/06/19 12/06/19 12/07/19 10:39 14:34 00:19 WBC 17.3 H RBC 2.60 L Hgb 7.1 L Hct 22.7 L MCH 27 L RDW 20.1 H Plt Count 832 H Lymph % (Auto) [place] % (Auto) [place] # Baso # Seg Neutrophils % Seg Neuts % (Manual) Lymphocytes % (Manual) Monocytes % (Manual) Seg Neutrophils # Seg Neutrophils # Man Lymphocytes # (Manual) Monocytes # (Manual) Eosinophils # (Manual) Basophils # (Manual) PT INR APTT ABG pH ABG pO2 ABG HCO3 ABG O2 Saturation ABG Base Excess ABG Hemoglobin Oxyhemoglobin Sodium Potassium Chloride Carbon Dioxide BUN Creatinine Glucose POC Glucose 128 H 136 H Lactic Acid Calcium Ionized Calcium Phosphorus Magnesium Total Bilirubin AST ALT Alkaline Phosphatase Ammonia Total Creatine Kinase CK-MB (CK-2) CK-MB (CK-2) Rel Index Total Protein Albumin Urine WBC (Auto) Vancomycin Trough Salicylates Acetaminophen Plasma/Serum Alcohol Crossmatch 12/07/19 12/07/19 12/07/19 03:44 03:44 05:53 WBC 16.2 H RBC 2.56 L Hgb 7.1 L Hct 22.3 L MCH RDW 19.4 H Plt Count 782 H Lymph % (Auto) [place] % (Auto) [place] # Baso # Seg Neutrophils % Seg Neuts % (Manual) Lymphocytes % (Manual) Monocytes % (Manual) Seg Neutrophils # Seg Neutrophils # Man Lymphocytes # (Manual) Monocytes # (Manual) Eosinophils # (Manual) Basophils # (Manual) PT INR APTT ABG pH ABG pO2 ABG HCO3 ABG O2 Saturation ABG Base Excess ABG Hemoglobin Oxyhemoglobin Sodium Potassium Chloride 95.6 L Carbon Dioxide BUN 56 H Creatinine 1.4 H Glucose 120 H POC Glucose 128 H Lactic Acid Calcium 10.3 H Ionized Calcium Phosphorus Magnesium Total Bilirubin AST ALT Alkaline Phosphatase Ammonia Total Creatine Kinase CK-MB (CK-2) CK-MB (CK-2) Rel Index Total Protein Albumin Urine WBC (Auto) Vancomycin Trough Salicylates Acetaminophen Plasma/Serum Alcohol Crossmatch 12/07/19 12/07/19 12/08/19 12:54 23:47 00:20 WBC RBC Hgb Hct MCH RDW Plt Count Lymph % (Auto) [place] % (Auto) [place] # Baso # Seg Neutrophils % Seg Neuts % (Manual) Lymphocytes % (Manual) Monocytes % (Manual) Seg Neutrophils # Seg Neutrophils # Man Lymphocytes # (Manual) Monocytes # (Manual) Eosinophils # (Manual) Basophils # (Manual) PT INR APTT ABG pH ABG pO2 ABG HCO3 ABG O2 Saturation ABG Base Excess ABG Hemoglobin Oxyhemoglobin Sodium Potassium Chloride Carbon Dioxide BUN Creatinine Glucose POC Glucose 128 H 130 H 124 H Lactic Acid Calcium Ionized Calcium Phosphorus Magnesium Total Bilirubin AST ALT Alkaline Phosphatase Ammonia Total Creatine Kinase CK-MB (CK-2) CK-MB (CK-2) Rel Index Total Protein Albumin Urine WBC (Auto) Vancomycin Trough Salicylates Acetaminophen Plasma/Serum Alcohol Crossmatch 12/08/19 12/08/19 12/08/19 06:38 12:04 18:26 WBC RBC Hgb Hct MCH RDW Plt Count Lymph % (Auto) [place] % (Auto) [place] # Baso # Seg Neutrophils % Seg Neuts % (Manual) Lymphocytes % (Manual) Monocytes % (Manual) Seg Neutrophils # Seg Neutrophils # Man Lymphocytes # (Manual) Monocytes # (Manual) Eosinophils # (Manual) Basophils # (Manual) PT INR APTT ABG pH ABG pO2 ABG HCO3 ABG O2 Saturation ABG Base Excess ABG Hemoglobin Oxyhemoglobin Sodium Potassium Chloride Carbon Dioxide BUN Creatinine Glucose POC Glucose 137 H 129 H 150 H Lactic Acid Calcium Ionized Calcium Phosphorus Magnesium Total Bilirubin AST ALT Alkaline Phosphatase Ammonia Total Creatine Kinase CK-MB (CK-2) CK-MB (CK-2) Rel Index Total Protein Albumin Urine WBC (Auto) Vancomycin Trough Salicylates Acetaminophen Plasma/Serum Alcohol Crossmatch 12/09/19 12/09/19 12/09/19 00:56 05:34 06:13 WBC RBC Hgb Hct MCH RDW Plt Count Lymph % (Auto) [place] % (Auto) [place] # Baso # Seg Neutrophils % Seg Neuts % (Manual) Lymphocytes % (Manual) Monocytes % (Manual) Seg Neutrophils # Seg Neutrophils # Man Lymphocytes # (Manual) Monocytes # (Manual) Eosinophils # (Manual) Basophils # (Manual) PT INR APTT ABG pH ABG pO2 ABG HCO3 ABG O2 Saturation ABG Base Excess ABG Hemoglobin Oxyhemoglobin Sodium 146 H Potassium Chloride Carbon Dioxide BUN 66 H Creatinine 1.9 H Glucose 116 H POC Glucose 130 H 130 H Lactic Acid Calcium Ionized Calcium Phosphorus Magnesium Total Bilirubin AST ALT Alkaline Phosphatase Ammonia Total Creatine Kinase CK-MB (CK-2) CK-MB (CK-2) Rel Index Total Protein Albumin Urine WBC (Auto) Vancomycin Trough Salicylates Acetaminophen Plasma/Serum Alcohol Crossmatch 12/09/19 12/09/19 12/10/19 11:52 17:50 00:14 WBC RBC Hgb Hct MCH RDW Plt Count Lymph % (Auto) [place] % (Auto) [place] # Baso # Seg Neutrophils % Seg Neuts % (Manual) Lymphocytes % (Manual) Monocytes % (Manual) Seg Neutrophils # Seg Neutrophils # Man Lymphocytes # (Manual) Monocytes # (Manual) Eosinophils # (Manual) Basophils # (Manual) PT INR APTT ABG pH ABG pO2 ABG HCO3 ABG O2 Saturation ABG Base Excess ABG Hemoglobin Oxyhemoglobin Sodium Potassium Chloride Carbon Dioxide BUN Creatinine Glucose POC Glucose 135 H 120 H 116 H Lactic Acid Calcium Ionized Calcium Phosphorus Magnesium Total Bilirubin AST ALT Alkaline Phosphatase Ammonia Total Creatine Kinase CK-MB (CK-2) CK-MB (CK-2) Rel Index Total Protein Albumin Urine WBC (Auto) Vancomycin Trough Salicylates Acetaminophen Plasma/Serum Alcohol Crossmatch 12/10/19 12/10/19 12/10/19 05:38 11:38 17:34 WBC RBC Hgb Hct MCH RDW Plt Count Lymph % (Auto) [place] % (Auto) [place] # Baso # Seg Neutrophils % Seg Neuts % (Manual) Lymphocytes % (Manual) Monocytes % (Manual) Seg Neutrophils # Seg Neutrophils # Man Lymphocytes # (Manual) Monocytes # (Manual) Eosinophils # (Manual) Basophils # (Manual) PT INR APTT ABG pH ABG pO2 ABG HCO3 ABG O2 Saturation ABG Base Excess ABG Hemoglobin Oxyhemoglobin Sodium Potassium Chloride Carbon Dioxide BUN Creatinine Glucose POC Glucose 115 H 112 H 130 H Lactic Acid Calcium Ionized Calcium Phosphorus Magnesium Total Bilirubin AST ALT Alkaline Phosphatase Ammonia Total Creatine Kinase CK-MB (CK-2) CK-MB (CK-2) Rel Index Total Protein Albumin Urine WBC (Auto) Vancomycin Trough Salicylates Acetaminophen Plasma/Serum Alcohol Crossmatch 12/11/19 12/11/19 12/11/19 00:20 05:31 12:22 WBC RBC Hgb Hct MCH RDW Plt Count Lymph % (Auto) [place] % (Auto) [place] # Baso # Seg Neutrophils % Seg Neuts % (Manual) Lymphocytes % (Manual) Monocytes % (Manual) Seg Neutrophils # Seg Neutrophils # Man Lymphocytes # (Manual) Monocytes # (Manual) Eosinophils # (Manual) Basophils # (Manual) PT INR APTT ABG pH ABG pO2 ABG HCO3 ABG O2 Saturation ABG Base Excess ABG Hemoglobin Oxyhemoglobin Sodium Potassium Chloride Carbon Dioxide BUN Creatinine Glucose POC Glucose 124 H 132 H 128 H Lactic Acid Calcium Ionized Calcium Phosphorus Magnesium Total Bilirubin AST ALT Alkaline Phosphatase Ammonia Total Creatine Kinase CK-MB (CK-2) CK-MB (CK-2) Rel Index Total Protein Albumin Urine WBC (Auto) Vancomycin Trough Salicylates Acetaminophen Plasma/Serum Alcohol Crossmatch 12/11/19 12/11/19 12/12/19 18:04 23:42 03:51 WBC RBC Hgb Hct MCH RDW Plt Count Lymph % (Auto) [place] % (Auto) [place] # Baso # Seg Neutrophils % Seg Neuts % (Manual) Lymphocytes % (Manual) Monocytes % (Manual) Seg Neutrophils # Seg Neutrophils # Man Lymphocytes # (Manual) Monocytes # (Manual) Eosinophils # (Manual) Basophils # (Manual) PT INR APTT ABG pH ABG pO2 ABG HCO3 ABG O2 Saturation ABG Base Excess ABG Hemoglobin Oxyhemoglobin Sodium 149 H Potassium Chloride Carbon Dioxide 20 L D BUN 77 H Creatinine 2.8 H Glucose POC Glucose 133 H 154 H Lactic Acid Calcium Ionized Calcium Phosphorus Magnesium Total Bilirubin AST ALT Alkaline Phosphatase Ammonia Total Creatine Kinase CK-MB (CK-2) CK-MB (CK-2) Rel Index Total Protein Albumin Urine WBC (Auto) Vancomycin Trough Salicylates Acetaminophen Plasma/Serum Alcohol Crossmatch 12/12/19 12/12/19 12/12/19 05:18 05:26 10:30 WBC 18.0 H RBC 2.51 L Hgb 6.8 L Hct 22.0 L MCH 27 L RDW 19.9 H Plt Count 582 H Lymph % (Auto) [place] % (Auto) [place] # Baso # Seg Neutrophils % Seg Neuts % (Manual) Lymphocytes % (Manual) Monocytes % (Manual) Seg Neutrophils # Seg Neutrophils # Man Lymphocytes # (Manual) Monocytes # (Manual) Eosinophils # (Manual) Basophils # (Manual) PT INR APTT ABG pH ABG pO2 ABG HCO3 ABG O2 Saturation ABG Base Excess ABG Hemoglobin Oxyhemoglobin Sodium Potassium Chloride Carbon Dioxide BUN Creatinine Glucose POC Glucose 135 H Lactic Acid Calcium Ionized Calcium Phosphorus Magnesium Total Bilirubin AST ALT Alkaline Phosphatase Ammonia Total Creatine Kinase CK-MB (CK-2) CK-MB (CK-2) Rel Index Total Protein Albumin Urine WBC (Auto) Vancomycin Trough Salicylates Acetaminophen Plasma/Serum Alcohol Crossmatch See Detail 12/12/19 12/12/19 12/12/19 11:44 18:10 23:21 WBC RBC Hgb Hct MCH RDW Plt Count Lymph % (Auto) [place] % (Auto) [place] # Baso # Seg Neutrophils % Seg Neuts % (Manual) Lymphocytes % (Manual) Monocytes % (Manual) Seg Neutrophils # Seg Neutrophils # Man Lymphocytes # (Manual) Monocytes # (Manual) Eosinophils # (Manual) Basophils # (Manual) PT INR APTT ABG pH ABG pO2 ABG HCO3 ABG O2 Saturation ABG Base Excess ABG Hemoglobin Oxyhemoglobin Sodium Potassium Chloride Carbon Dioxide BUN Creatinine Glucose POC Glucose 108 H 107 H 126 H Lactic Acid Calcium Ionized Calcium Phosphorus Magnesium Total Bilirubin AST ALT Alkaline Phosphatase Ammonia Total Creatine Kinase CK-MB (CK-2) CK-MB (CK-2) Rel Index Total Protein Albumin Urine WBC (Auto) Vancomycin Trough Salicylates Acetaminophen Plasma/Serum Alcohol Crossmatch 12/13/19 12/13/19 12/13/19 05:41 07:48 07:48 WBC 38.3 H RBC 2.37 L Hgb 6.3 L Hct 20.9 L MCH 27 L RDW 20.2 H Plt Count 546 H Lymph % (Auto) [place] % (Auto) [place] # Baso # Seg Neutrophils % Seg Neuts % (Manual) 93.0 H Lymphocytes % (Manual) 1.0 L Monocytes % (Manual) Seg Neutrophils # Seg Neutrophils # Man 35.6 H Lymphocytes # (Manual) 0.4 L Monocytes # (Manual) Eosinophils # (Manual) Basophils # (Manual) 0.4 H PT INR APTT ABG pH ABG pO2 ABG HCO3 ABG O2 Saturation ABG Base Excess ABG Hemoglobin Oxyhemoglobin Sodium 152 H Potassium 3.1 L D Chloride 111.9 H Carbon Dioxide 21 L BUN 53 H Creatinine 1.9 H Glucose 141 H POC Glucose 128 H Lactic Acid Calcium Ionized Calcium Phosphorus Magnesium Total Bilirubin AST ALT Alkaline Phosphatase 316 H Ammonia Total Creatine Kinase CK-MB (CK-2) CK-MB (CK-2) Rel Index Total Protein Albumin 2.4 L Urine WBC (Auto) Vancomycin Trough Salicylates Acetaminophen Plasma/Serum Alcohol Crossmatch 12/13/19 12/13/19 12/14/19 18:17 23:19 05:36 WBC RBC Hgb Hct MCH RDW Plt Count Lymph % (Auto) [place] % (Auto) [place] # Baso # Seg Neutrophils % Seg Neuts % (Manual) Lymphocytes % (Manual) Monocytes % (Manual) Seg Neutrophils # Seg Neutrophils # Man Lymphocytes # (Manual) Monocytes # (Manual) Eosinophils # (Manual) Basophils # (Manual) PT INR APTT ABG pH ABG pO2 ABG HCO3 ABG O2 Saturation ABG Base Excess ABG Hemoglobin Oxyhemoglobin Sodium Potassium Chloride Carbon Dioxide BUN Creatinine Glucose POC Glucose 141 H 158 H 182 H Lactic Acid Calcium Ionized Calcium Phosphorus Magnesium Total Bilirubin AST ALT Alkaline Phosphatase Ammonia Total Creatine Kinase CK-MB (CK-2) CK-MB (CK-2) Rel Index Total Protein Albumin Urine WBC (Auto) Vancomycin Trough Salicylates Acetaminophen Plasma/Serum Alcohol Crossmatch 12/14/19 12/14/19 12/14/19 08:48 08:48 10:31 WBC 33.3 H RBC 2.70 L Hgb 7.9 L 8.0 L Hct 25.3 L 24.0 L MCH RDW 19.2 H Plt Count 476 H Lymph % (Auto) [place] % (Auto) [place] # Baso # Seg Neutrophils % Seg Neuts % (Manual) Lymphocytes % (Manual) Monocytes % (Manual) Seg Neutrophils # Seg Neutrophils # Man Lymphocytes # (Manual) Monocytes # (Manual) Eosinophils # (Manual) Basophils # (Manual) PT INR APTT ABG pH ABG pO2 ABG HCO3 ABG O2 Saturation ABG Base Excess ABG Hemoglobin Oxyhemoglobin Sodium 153 H Potassium 2.5 L* Chloride 114.9 H Carbon Dioxide 20 L BUN 38 H Creatinine 1.4 H Glucose 177 H POC Glucose Lactic Acid Calcium Ionized Calcium Phosphorus Magnesium Total Bilirubin AST ALT Alkaline Phosphatase Ammonia Total Creatine Kinase CK-MB (CK-2) CK-MB (CK-2) Rel Index Total Protein Albumin Urine WBC (Auto) Vancomycin Trough Salicylates Acetaminophen Plasma/Serum Alcohol Crossmatch 12/14/19 12/14/19 12/14/19 12:57 16:15 17:50 WBC RBC Hgb Hct MCH RDW Plt Count Lymph % (Auto) [place] % (Auto) [place] # Baso # Seg Neutrophils % Seg Neuts % (Manual) Lymphocytes % (Manual) Monocytes % (Manual) Seg Neutrophils # Seg Neutrophils # Man Lymphocytes # (Manual) Monocytes # (Manual) Eosinophils # (Manual) Basophils # (Manual) PT INR APTT ABG pH ABG pO2 73.6 L ABG HCO3 ABG O2 Saturation ABG Base Excess ABG Hemoglobin 7.6 L Oxyhemoglobin 94.0 L Sodium Potassium Chloride Carbon Dioxide BUN Creatinine Glucose POC Glucose 174 H 150 H Lactic Acid Calcium Ionized Calcium Phosphorus Magnesium Total Bilirubin AST ALT Alkaline Phosphatase Ammonia Total Creatine Kinase CK-MB (CK-2) CK-MB (CK-2) Rel Index Total Protein Albumin Urine WBC (Auto) Vancomycin Trough Salicylates Acetaminophen Plasma/Serum Alcohol Crossmatch 12/15/19 12/15/19 12/15/19 00:28 05:27 07:23 WBC 30.0 H RBC 3.11 L Hgb 8.6 L Hct 27.7 L MCH RDW 20.0 H Plt Count 473 H Lymph % (Auto) [place] % (Auto) [place] # Baso # Seg Neutrophils % Seg Neuts % (Manual) Lymphocytes % (Manual) Monocytes % (Manual) Seg Neutrophils # Seg Neutrophils # Man Lymphocytes # (Manual) Monocytes # (Manual) Eosinophils # (Manual) Basophils # (Manual) PT INR APTT ABG pH ABG pO2 ABG HCO3 ABG O2 Saturation ABG Base Excess ABG Hemoglobin Oxyhemoglobin Sodium Potassium Chloride Carbon Dioxide BUN Creatinine Glucose POC Glucose 167 H 148 H Lactic Acid Calcium Ionized Calcium Phosphorus Magnesium Total Bilirubin AST ALT Alkaline Phosphatase Ammonia Total Creatine Kinase CK-MB (CK-2) CK-MB (CK-2) Rel Index Total Protein Albumin Urine WBC (Auto) Vancomycin Trough Salicylates Acetaminophen Plasma/Serum Alcohol Crossmatch 12/15/19 12/15/19 12/15/19 07:23 12:21 17:41 WBC RBC Hgb Hct MCH RDW Plt Count Lymph % (Auto) [place] % (Auto) [place] # Baso # Seg Neutrophils % Seg Neuts % (Manual) Lymphocytes % (Manual) Monocytes % (Manual) Seg Neutrophils # Seg Neutrophils # Man Lymphocytes # (Manual) Monocytes # (Manual) Eosinophils # (Manual) Basophils # (Manual) PT INR APTT ABG pH ABG pO2 ABG HCO3 ABG O2 Saturation ABG Base Excess ABG Hemoglobin Oxyhemoglobin Sodium 147 H Potassium 3.5 L D Chloride 111.2 H Carbon Dioxide 19 L BUN 29 H Creatinine Glucose 126 H POC Glucose 154 H 144 H Lactic Acid Calcium Ionized Calcium Phosphorus Magnesium Total Bilirubin AST ALT Alkaline Phosphatase Ammonia Total Creatine Kinase CK-MB (CK-2) CK-MB (CK-2) Rel Index Total Protein Albumin Urine WBC (Auto) Vancomycin Trough Salicylates Acetaminophen Plasma/Serum Alcohol Crossmatch 12/16/19 12/16/19 12/16/19 00:22 05:30 05:44 WBC 30.8 H RBC 2.58 L Hgb 7.1 L Hct 22.7 L MCH RDW 19.6 H Plt Count 451 H Lymph % (Auto) [place] % (Auto) [place] # Baso # Seg Neutrophils % Seg Neuts % (Manual) Lymphocytes % (Manual) Monocytes % (Manual) Seg Neutrophils # Seg Neutrophils # Man Lymphocytes # (Manual) Monocytes # (Manual) Eosinophils # (Manual) Basophils # (Manual) PT INR APTT ABG pH ABG pO2 ABG HCO3 ABG O2 Saturation ABG Base Excess ABG Hemoglobin Oxyhemoglobin Sodium Potassium Chloride Carbon Dioxide BUN Creatinine Glucose POC Glucose 139 H 126 H Lactic Acid Calcium Ionized Calcium Phosphorus Magnesium Total Bilirubin AST ALT Alkaline Phosphatase Ammonia Total Creatine Kinase CK-MB (CK-2) CK-MB (CK-2) Rel Index Total Protein Albumin Urine WBC (Auto) Vancomycin Trough Salicylates Acetaminophen Plasma/Serum Alcohol Crossmatch 12/16/19 12/16/19 12/16/19 05:44 11:48 17:37 WBC RBC Hgb Hct MCH RDW Plt Count Lymph % (Auto) [place] % (Auto) [place] # Baso # Seg Neutrophils % Seg Neuts % (Manual) Lymphocytes % (Manual) Monocytes % (Manual) Seg Neutrophils # Seg Neutrophils # Man Lymphocytes # (Manual) Monocytes # (Manual) Eosinophils # (Manual) Basophils # (Manual) PT INR APTT ABG pH ABG pO2 ABG HCO3 ABG O2 Saturation ABG Base Excess ABG Hemoglobin Oxyhemoglobin Sodium Potassium 3.4 L Chloride 109.2 H Carbon Dioxide 19 L BUN 27 H Creatinine Glucose 124 H POC Glucose 125 H 148 H Lactic Acid Calcium Ionized Calcium Phosphorus Magnesium Total Bilirubin AST ALT Alkaline Phosphatase Ammonia Total Creatine Kinase CK-MB (CK-2) CK-MB (CK-2) Rel Index Total Protein Albumin Urine WBC (Auto) Vancomycin Trough Salicylates Acetaminophen Plasma/Serum Alcohol Crossmatch 12/16/19 12/17/19 12/17/19 23:43 05:28 12:47 WBC RBC Hgb Hct MCH RDW Plt Count Lymph % (Auto) [place] % (Auto) [place] # Baso # Seg Neutrophils % Seg Neuts % (Manual) Lymphocytes % (Manual) Monocytes % (Manual) Seg Neutrophils # Seg Neutrophils # Man Lymphocytes # (Manual) Monocytes # (Manual) Eosinophils # (Manual) Basophils # (Manual) PT INR APTT ABG pH ABG pO2 ABG HCO3 ABG O2 Saturation ABG Base Excess ABG Hemoglobin Oxyhemoglobin Sodium Potassium Chloride Carbon Dioxide BUN Creatinine Glucose POC Glucose 142 H 140 H 125 H Lactic Acid Calcium Ionized Calcium Phosphorus Magnesium Total Bilirubin AST ALT Alkaline Phosphatase Ammonia Total Creatine Kinase CK-MB (CK-2) CK-MB (CK-2) Rel Index Total Protein Albumin Urine WBC (Auto) Vancomycin Trough Salicylates Acetaminophen Plasma/Serum Alcohol Crossmatch 12/17/19 12/17/19 12/17/19 17:05 18:00 Unknown WBC RBC Hgb Hct MCH RDW Plt Count Lymph % (Auto) [place] % (Auto) [place] # Baso # Seg Neutrophils % Seg Neuts % (Manual) Lymphocytes % (Manual) Monocytes % (Manual) Seg Neutrophils # Seg Neutrophils # Man Lymphocytes # (Manual) Monocytes # (Manual) Eosinophils # (Manual) Basophils # (Manual) PT INR APTT ABG pH ABG pO2 68.1 L ABG HCO3 ABG O2 Saturation 93.7 L ABG Base Excess ABG Hemoglobin 5.0 L Oxyhemoglobin 91.7 L Sodium Potassium Chloride Carbon Dioxide BUN Creatinine Glucose POC Glucose 140 H Lactic Acid Calcium Ionized Calcium Phosphorus Magnesium Total Bilirubin AST ALT Alkaline Phosphatase Ammonia Total Creatine Kinase CK-MB (CK-2) CK-MB (CK-2) Rel Index Total Protein Albumin Urine WBC (Auto) Vancomycin Trough Salicylates Acetaminophen Plasma/Serum Alcohol Crossmatch 12/18/19 12/18/19 12/18/19 00:16 04:53 04:53 WBC 28.6 H RBC 2.27 L Hgb 6.3 L Hct 19.5 L* MCH RDW 20.0 H Plt Count 497 H Lymph % (Auto) [place] % (Auto) [place] # Baso # Seg Neutrophils % Seg Neuts % (Manual) Lymphocytes % (Manual) Monocytes % (Manual) Seg Neutrophils # Seg Neutrophils # Man Lymphocytes # (Manual) Monocytes # (Manual) Eosinophils # (Manual) Basophils # (Manual) PT INR APTT ABG pH ABG pO2 ABG HCO3 ABG O2 Saturation ABG Base Excess ABG Hemoglobin Oxyhemoglobin Sodium Potassium Chloride 107.9 H Carbon Dioxide 20 L BUN 27 H Creatinine 0.6 L Glucose 116 H POC Glucose 123 H Lactic Acid Calcium Ionized Calcium Phosphorus Magnesium Total Bilirubin AST ALT Alkaline Phosphatase Ammonia Total Creatine Kinase CK-MB (CK-2) CK-MB (CK-2) Rel Index Total Protein Albumin Urine WBC (Auto) Vancomycin Trough Salicylates Acetaminophen Plasma/Serum Alcohol Crossmatch 12/18/19 12/18/19 12/18/19 06:38 11:22 12:08 WBC RBC Hgb Hct MCH RDW Plt Count Lymph % (Auto) [place] % (Auto) [place] # Baso # Seg Neutrophils % Seg Neuts % (Manual) Lymphocytes % (Manual) Monocytes % (Manual) Seg Neutrophils # Seg Neutrophils # Man Lymphocytes # (Manual) Monocytes # (Manual) Eosinophils # (Manual) Basophils # (Manual) PT INR APTT ABG pH ABG pO2 ABG HCO3 ABG O2 Saturation ABG Base Excess ABG Hemoglobin Oxyhemoglobin Sodium Potassium Chloride Carbon Dioxide BUN Creatinine Glucose POC Glucose 120 H 127 H Lactic Acid Calcium Ionized Calcium Phosphorus Magnesium Total Bilirubin AST ALT Alkaline Phosphatase Ammonia Total Creatine Kinase CK-MB (CK-2) CK-MB (CK-2) Rel Index Total Protein Albumin Urine WBC (Auto) Vancomycin Trough Salicylates Acetaminophen Plasma/Serum Alcohol Crossmatch See Detail 12/18/19 12/18/19 12/18/19 14:05 17:49 23:53 WBC RBC Hgb Hct MCH RDW Plt Count Lymph % (Auto) [place] % (Auto) [place] # Baso # Seg Neutrophils % Seg Neuts % (Manual) Lymphocytes % (Manual) Monocytes % (Manual) Seg Neutrophils # Seg Neutrophils # Man Lymphocytes # (Manual) Monocytes # (Manual) Eosinophils # (Manual) Basophils # (Manual) PT INR APTT ABG pH 7.267 L ABG pO2 69.8 L ABG HCO3 ABG O2 Saturation 88.4 L ABG Base Excess ABG Hemoglobin 7.1 L Oxyhemoglobin 86.4 L Sodium Potassium Chloride Carbon Dioxide BUN Creatinine Glucose POC Glucose 157 H 128 H Lactic Acid Calcium Ionized Calcium Phosphorus Magnesium Total Bilirubin AST ALT Alkaline Phosphatase Ammonia Total Creatine Kinase CK-MB (CK-2) CK-MB (CK-2) Rel Index Total Protein Albumin Urine WBC (Auto) Vancomycin Trough Salicylates Acetaminophen Plasma/Serum Alcohol Crossmatch 12/19/19 12/19/19 12/19/19 03:37 03:37 05:25 WBC 31.3 H RBC 2.60 L Hgb 7.6 L Hct 23.0 L MCH RDW 19.4 H Plt Count 530 H Lymph % (Auto) [place] % (Auto) [place] # Baso # Seg Neutrophils % Seg Neuts % (Manual) Lymphocytes % (Manual) Monocytes % (Manual) Seg Neutrophils # Seg Neutrophils # Man Lymphocytes # (Manual) Monocytes # (Manual) Eosinophils # (Manual) Basophils # (Manual) PT INR APTT ABG pH ABG pO2 ABG HCO3 ABG O2 Saturation ABG Base Excess ABG Hemoglobin Oxyhemoglobin Sodium Potassium Chloride Carbon Dioxide 18 L BUN 36 H Creatinine Glucose 111 H POC Glucose 123 H Lactic Acid Calcium Ionized Calcium Phosphorus Magnesium Total Bilirubin AST ALT Alkaline Phosphatase Ammonia Total Creatine Kinase CK-MB (CK-2) CK-MB (CK-2) Rel Index Total Protein Albumin Urine WBC (Auto) Vancomycin Trough Salicylates Acetaminophen Plasma/Serum Alcohol Crossmatch 12/19/19 12/19/19 12/20/19 12:59 18:33 00:00 WBC RBC Hgb Hct MCH RDW Plt Count Lymph % (Auto) [place] % (Auto) [place] # Baso # Seg Neutrophils % Seg Neuts % (Manual) Lymphocytes % (Manual) Monocytes % (Manual) Seg Neutrophils # Seg Neutrophils # Man Lymphocytes # (Manual) Monocytes # (Manual) Eosinophils # (Manual) Basophils # (Manual) PT INR APTT ABG pH ABG pO2 ABG HCO3 ABG O2 Saturation ABG Base Excess ABG Hemoglobin Oxyhemoglobin Sodium Potassium Chloride Carbon Dioxide BUN Creatinine Glucose POC Glucose 130 H 118 H 135 H Lactic Acid Calcium Ionized Calcium Phosphorus Magnesium Total Bilirubin AST ALT Alkaline Phosphatase Ammonia Total Creatine Kinase CK-MB (CK-2) CK-MB (CK-2) Rel Index Total Protein Albumin Urine WBC (Auto) Vancomycin Trough Salicylates Acetaminophen Plasma/Serum Alcohol Crossmatch 12/20/19 12/20/19 12/20/19 05:46 12:31 18:07 WBC RBC Hgb Hct MCH RDW Plt Count Lymph % (Auto) [place] % (Auto) [place] # Baso # Seg Neutrophils % Seg Neuts % (Manual) Lymphocytes % (Manual) Monocytes % (Manual) Seg Neutrophils # Seg Neutrophils # Man Lymphocytes # (Manual) Monocytes # (Manual) Eosinophils # (Manual) Basophils # (Manual) PT INR APTT ABG pH ABG pO2 ABG HCO3 ABG O2 Saturation ABG Base Excess ABG Hemoglobin Oxyhemoglobin Sodium Potassium Chloride Carbon Dioxide BUN Creatinine Glucose POC Glucose 131 H 128 H 134 H Lactic Acid Calcium Ionized Calcium Phosphorus Magnesium Total Bilirubin AST ALT Alkaline Phosphatase Ammonia Total Creatine Kinase CK-MB (CK-2) CK-MB (CK-2) Rel Index Total Protein Albumin Urine WBC (Auto) Vancomycin Trough Salicylates Acetaminophen Plasma/Serum Alcohol Crossmatch 12/21/19 12/21/19 12/21/19 03:28 03:28 07:21 WBC 29.4 H RBC 2.30 L Hgb 6.8 L Hct 20.2 L MCH RDW 20.2 H Plt Count 746 H Lymph % (Auto) [place] % (Auto) [place] # Baso # Seg Neutrophils % Seg Neuts % (Manual) 85.0 H Lymphocytes % (Manual) 8.0 L Monocytes % (Manual) Seg Neutrophils # Seg Neutrophils # Man 25.0 H Lymphocytes # (Manual) Monocytes # (Manual) 1.5 H Eosinophils # (Manual) 0.6 H Basophils # (Manual) PT INR APTT ABG pH ABG pO2 ABG HCO3 ABG O2 Saturation ABG Base Excess ABG Hemoglobin Oxyhemoglobin Sodium Potassium Chloride Carbon Dioxide 17 L BUN 57 H Creatinine 1.4 H D Glucose POC Glucose 124 H Lactic Acid Calcium Ionized Calcium Phosphorus Magnesium Total Bilirubin AST ALT Alkaline Phosphatase Ammonia Total Creatine Kinase CK-MB (CK-2) CK-MB (CK-2) Rel Index Total Protein Albumin Urine WBC (Auto) Vancomycin Trough Salicylates Acetaminophen Plasma/Serum Alcohol Crossmatch 12/21/19 12/21/19 12/21/19 08:56 12:06 14:53 WBC RBC Hgb 7.2 L Hct 22.9 L MCH RDW Plt Count Lymph % (Auto) [place] % (Auto) [place] # Baso # Seg Neutrophils % Seg Neuts % (Manual) Lymphocytes % (Manual) Monocytes % (Manual) Seg Neutrophils # Seg Neutrophils # Man Lymphocytes # (Manual) Monocytes # (Manual) Eosinophils # (Manual) Basophils # (Manual) PT INR APTT ABG pH ABG pO2 ABG HCO3 ABG O2 Saturation ABG Base Excess ABG Hemoglobin Oxyhemoglobin Sodium Potassium Chloride Carbon Dioxide BUN Creatinine Glucose POC Glucose 116 H Lactic Acid Calcium Ionized Calcium Phosphorus Magnesium Total Bilirubin AST ALT Alkaline Phosphatase Ammonia Total Creatine Kinase CK-MB (CK-2) CK-MB (CK-2) Rel Index Total Protein Albumin Urine WBC (Auto) Vancomycin Trough 33.8 H Salicylates Acetaminophen Plasma/Serum Alcohol Crossmatch 12/21/19 12/21/19 12/21/19 14:54 17:27 23:49 WBC RBC Hgb Hct MCH RDW Plt Count Lymph % (Auto) [place] % (Auto) [place] # Baso # Seg Neutrophils % Seg Neuts % (Manual) Lymphocytes % (Manual) Monocytes % (Manual) Seg Neutrophils # Seg Neutrophils # Man Lymphocytes # (Manual) Monocytes # (Manual) Eosinophils # (Manual) Basophils # (Manual) PT INR APTT ABG pH ABG pO2 ABG HCO3 ABG O2 Saturation ABG Base Excess ABG Hemoglobin Oxyhemoglobin Sodium Potassium Chloride Carbon Dioxide BUN Creatinine Glucose POC Glucose 145 H 127 H Lactic Acid Calcium Ionized Calcium Phosphorus Magnesium Total Bilirubin AST ALT Alkaline Phosphatase Ammonia Total Creatine Kinase CK-MB (CK-2) CK-MB (CK-2) Rel Index Total Protein Albumin Urine WBC (Auto) Vancomycin Trough Salicylates Acetaminophen Plasma/Serum Alcohol Crossmatch See Detail 12/22/19 12/22/19 12/22/19 04:43 05:56 08:40 WBC RBC Hgb Hct MCH RDW Plt Count Lymph % (Auto) [place] % (Auto) [place] # Baso # Seg Neutrophils % Seg Neuts % (Manual) Lymphocytes % (Manual) Monocytes % (Manual) Seg Neutrophils # Seg Neutrophils # Man Lymphocytes # (Manual) Monocytes # (Manual) Eosinophils # (Manual) Basophils # (Manual) PT INR APTT ABG pH ABG pO2 75.6 L ABG HCO3 ABG O2 Saturation ABG Base Excess -2.6 L ABG Hemoglobin 6.8 L Oxyhemoglobin 94.6 L Sodium Potassium Chloride Carbon Dioxide 17 L BUN 60 H Creatinine 1.4 H Glucose 126 H POC Glucose 153 H Lactic Acid Calcium Ionized Calcium Phosphorus Magnesium Total Bilirubin AST ALT Alkaline Phosphatase Ammonia Total Creatine Kinase CK-MB (CK-2) CK-MB (CK-2) Rel Index Total Protein Albumin Urine WBC (Auto) Vancomycin Trough Salicylates Acetaminophen Plasma/Serum Alcohol Crossmatch 12/22/19 12/22/19 12/23/19 12:07 17:49 04:30 WBC 22.4 H RBC 2.68 L Hgb 7.6 L Hct 22.9 L MCH RDW 19.9 H Plt Count 998 H Lymph % (Auto) [place] % (Auto) [place] # Baso # Seg Neutrophils % Seg Neuts % (Manual) 88.0 H Lymphocytes % (Manual) 2.0 L Monocytes % (Manual) 9.0 H Seg Neutrophils # Seg Neutrophils # Man 19.7 H Lymphocytes # (Manual) 0.4 L Monocytes # (Manual) 2.0 H Eosinophils # (Manual) Basophils # (Manual) PT INR APTT ABG pH ABG pO2 ABG HCO3 ABG O2 Saturation ABG Base Excess ABG Hemoglobin Oxyhemoglobin Sodium Potassium Chloride Carbon Dioxide BUN Creatinine Glucose POC Glucose 140 H 116 H Lactic Acid Calcium Ionized Calcium Phosphorus Magnesium Total Bilirubin AST ALT Alkaline Phosphatase Ammonia Total Creatine Kinase CK-MB (CK-2) CK-MB (CK-2) Rel Index Total Protein Albumin Urine WBC (Auto) Vancomycin Trough Salicylates Acetaminophen Plasma/Serum Alcohol Crossmatch 12/23/19 12/23/19 12/23/19 04:30 12:00 18:06 WBC RBC Hgb Hct MCH RDW Plt Count Lymph % (Auto) [place] % (Auto) [place] # Baso # Seg Neutrophils % Seg Neuts % (Manual) Lymphocytes % (Manual) Monocytes % (Manual) Seg Neutrophils # Seg Neutrophils # Man Lymphocytes # (Manual) Monocytes # (Manual) Eosinophils # (Manual) Basophils # (Manual) PT INR APTT ABG pH ABG pO2 ABG HCO3 ABG O2 Saturation ABG Base Excess ABG Hemoglobin Oxyhemoglobin Sodium Potassium 5.2 H Chloride Carbon Dioxide 21 L BUN 69 H Creatinine 1.5 H Glucose 117 H POC Glucose 128 H 138 H Lactic Acid Calcium Ionized Calcium Phosphorus Magnesium Total Bilirubin AST ALT Alkaline Phosphatase Ammonia Total Creatine Kinase CK-MB (CK-2) CK-MB (CK-2) Rel Index Total Protein Albumin Urine WBC (Auto) Vancomycin Trough Salicylates Acetaminophen Plasma/Serum Alcohol Crossmatch 12/23/19 12/24/19 12/24/19 23:46 04:31 05:08 WBC RBC Hgb Hct MCH RDW Plt Count Lymph % (Auto) [place] % (Auto) [place] # Baso # Seg Neutrophils % Seg Neuts % (Manual) Lymphocytes % (Manual) Monocytes % (Manual) Seg Neutrophils # Seg Neutrophils # Man Lymphocytes # (Manual) Monocytes # (Manual) Eosinophils # (Manual) Basophils # (Manual) PT INR APTT ABG pH ABG pO2 ABG HCO3 ABG O2 Saturation ABG Base Excess ABG Hemoglobin Oxyhemoglobin Sodium Potassium 5.3 H Chloride 107.6 H Carbon Dioxide 20 L BUN 72 H Creatinine 1.6 H Glucose 120 H POC Glucose 120 H 140 H Lactic Acid Calcium Ionized Calcium Phosphorus Magnesium Total Bilirubin AST ALT Alkaline Phosphatase Ammonia Total Creatine Kinase CK-MB (CK-2) CK-MB (CK-2) Rel Index Total Protein Albumin Urine WBC (Auto) Vancomycin Trough Salicylates Acetaminophen Plasma/Serum Alcohol Crossmatch 12/24/19 12/24/19 12/25/19 11:58 17:49 03:47 WBC 36.2 H RBC 2.92 L Hgb 8.4 L Hct 26.1 L MCH RDW 20.2 H Plt Count 942 H Lymph % (Auto) [place] % (Auto) [place] # Baso # Seg Neutrophils % Seg Neuts % (Manual) 97.5 H Lymphocytes % (Manual) 1.0 L Monocytes % (Manual) Seg Neutrophils # Seg Neutrophils # Man 35.3 H Lymphocytes # (Manual) 0.4 L Monocytes # (Manual) Eosinophils # (Manual) Basophils # (Manual) PT INR APTT ABG pH ABG pO2 ABG HCO3 ABG O2 Saturation ABG Base Excess ABG Hemoglobin Oxyhemoglobin Sodium Potassium Chloride Carbon Dioxide BUN Creatinine Glucose POC Glucose 146 H 131 H Lactic Acid Calcium Ionized Calcium Phosphorus Magnesium Total Bilirubin AST ALT Alkaline Phosphatase Ammonia Total Creatine Kinase CK-MB (CK-2) CK-MB (CK-2) Rel Index Total Protein Albumin Urine WBC (Auto) Vancomycin Trough Salicylates Acetaminophen Plasma/Serum Alcohol Crossmatch 12/25/19 12/25/19 12/25/19 03:47 05:30 12:23 WBC RBC Hgb Hct MCH RDW Plt Count Lymph % (Auto) [place] % (Auto) [place] # Baso # Seg Neutrophils % Seg Neuts % (Manual) Lymphocytes % (Manual) Monocytes % (Manual) Seg Neutrophils # Seg Neutrophils # Man Lymphocytes # (Manual) Monocytes # (Manual) Eosinophils # (Manual) Basophils # (Manual) PT INR APTT ABG pH ABG pO2 ABG HCO3 ABG O2 Saturation ABG Base Excess ABG Hemoglobin Oxyhemoglobin Sodium Potassium Chloride Carbon Dioxide 15 L BUN 70 H Creatinine 1.7 H Glucose 153 H POC Glucose 169 H 135 H Lactic Acid Calcium Ionized Calcium Phosphorus Magnesium Total Bilirubin AST ALT Alkaline Phosphatase Ammonia Total Creatine Kinase CK-MB (CK-2) CK-MB (CK-2) Rel Index Total Protein Albumin Urine WBC (Auto) Vancomycin Trough Salicylates Acetaminophen Plasma/Serum Alcohol Crossmatch 12/25/19 12/25/19 12/26/19 17:37 23:29 09:47 WBC 22.1 H RBC 2.83 L Hgb 7.9 L Hct 25.5 L MCH RDW 20.0 H Plt Count 894 H Lymph % (Auto) [place] % (Auto) [place] # Baso # Seg Neutrophils % Seg Neuts % (Manual) Lymphocytes % (Manual) Monocytes % (Manual) Seg Neutrophils # Seg Neutrophils # Man Lymphocytes # (Manual) Monocytes # (Manual) Eosinophils # (Manual) Basophils # (Manual) PT INR APTT ABG pH ABG pO2 ABG HCO3 ABG O2 Saturation ABG Base Excess ABG Hemoglobin Oxyhemoglobin Sodium Potassium Chloride Carbon Dioxide BUN Creatinine Glucose POC Glucose 120 H 140 H Lactic Acid Calcium Ionized Calcium Phosphorus Magnesium Total Bilirubin AST ALT Alkaline Phosphatase Ammonia Total Creatine Kinase CK-MB (CK-2) CK-MB (CK-2) Rel Index Total Protein Albumin Urine WBC (Auto) Vancomycin Trough Salicylates Acetaminophen Plasma/Serum Alcohol Crossmatch 12/26/19 12/26/19 12/26/19 09:47 11:46 17:52 WBC RBC Hgb Hct MCH RDW Plt Count Lymph % (Auto) [place] % (Auto) [place] # Baso # Seg Neutrophils % Seg Neuts % (Manual) Lymphocytes % (Manual) Monocytes % (Manual) Seg Neutrophils # Seg Neutrophils # Man Lymphocytes # (Manual) Monocytes # (Manual) Eosinophils # (Manual) Basophils # (Manual) PT INR APTT ABG pH ABG pO2 ABG HCO3 ABG O2 Saturation ABG Base Excess ABG Hemoglobin Oxyhemoglobin Sodium Potassium Chloride Carbon Dioxide 18 L BUN 65 H Creatinine 1.4 H Glucose 132 H POC Glucose 110 H 145 H Lactic Acid Calcium Ionized Calcium Phosphorus Magnesium Total Bilirubin AST ALT Alkaline Phosphatase Ammonia Total Creatine Kinase CK-MB (CK-2) CK-MB (CK-2) Rel Index Total Protein Albumin Urine WBC (Auto) Vancomycin Trough Salicylates Acetaminophen Plasma/Serum Alcohol Crossmatch 12/27/19 12/27/19 12/27/19 00:01 03:42 03:42 WBC 18.0 H RBC 2.86 L Hgb 8.0 L Hct 25.2 L MCH RDW 19.2 H Plt Count 873 H Lymph % (Auto) 8.4 L [place] % (Auto) 7.5 H [place] # 1.4 H Baso # 0.2 H Seg Neutrophils % 82.2 H Seg Neuts % (Manual) Lymphocytes % (Manual) Monocytes % (Manual) Seg Neutrophils # 14.8 H Seg Neutrophils # Man Lymphocytes # (Manual) Monocytes # (Manual) Eosinophils # (Manual) Basophils # (Manual) PT INR APTT ABG pH ABG pO2 ABG HCO3 ABG O2 Saturation ABG Base Excess ABG Hemoglobin Oxyhemoglobin Sodium Potassium Chloride Carbon Dioxide BUN 73 H Creatinine 1.4 H Glucose 119 H POC Glucose 124 H Lactic Acid Calcium Ionized Calcium Phosphorus Magnesium Total Bilirubin AST ALT Alkaline Phosphatase Ammonia Total Creatine Kinase CK-MB (CK-2) CK-MB (CK-2) Rel Index Total Protein Albumin Urine WBC (Auto) Vancomycin Trough Salicylates Acetaminophen Plasma/Serum Alcohol Crossmatch 12/27/19 12/27/19 12/27/19 05:45 11:45 17:29 WBC RBC Hgb Hct MCH RDW Plt Count Lymph % (Auto) [place] % (Auto) [place] # Baso # Seg Neutrophils % Seg Neuts % (Manual) Lymphocytes % (Manual) Monocytes % (Manual) Seg Neutrophils # Seg Neutrophils # Man Lymphocytes # (Manual) Monocytes # (Manual) Eosinophils # (Manual) Basophils # (Manual) PT INR APTT ABG pH ABG pO2 ABG HCO3 ABG O2 Saturation ABG Base Excess ABG Hemoglobin Oxyhemoglobin Sodium Potassium Chloride Carbon Dioxide BUN Creatinine Glucose POC Glucose 131 H 123 H 134 H Lactic Acid Calcium Ionized Calcium Phosphorus Magnesium Total Bilirubin AST ALT Alkaline Phosphatase Ammonia Total Creatine Kinase CK-MB (CK-2) CK-MB (CK-2) Rel Index Total Protein Albumin Urine WBC (Auto) Vancomycin Trough Salicylates Acetaminophen Plasma/Serum Alcohol Crossmatch 12/28/19 12/28/19 12/28/19 00:12 05:14 11:53 WBC RBC Hgb Hct MCH RDW Plt Count Lymph % (Auto) [place] % (Auto) [place] # Baso # Seg Neutrophils % Seg Neuts % (Manual) Lymphocytes % (Manual) Monocytes % (Manual) Seg Neutrophils # Seg Neutrophils # Man Lymphocytes # (Manual) Monocytes # (Manual) Eosinophils # (Manual) Basophils # (Manual) PT INR APTT ABG pH ABG pO2 ABG HCO3 ABG O2 Saturation ABG Base Excess ABG Hemoglobin Oxyhemoglobin Sodium Potassium Chloride Carbon Dioxide BUN Creatinine Glucose POC Glucose 138 H 130 H 146 H Lactic Acid Calcium Ionized Calcium Phosphorus Magnesium Total Bilirubin AST ALT Alkaline Phosphatase Ammonia Total Creatine Kinase CK-MB (CK-2) CK-MB (CK-2) Rel Index Total Protein Albumin Urine WBC (Auto) Vancomycin Trough Salicylates Acetaminophen Plasma/Serum Alcohol Crossmatch 12/28/19 12/29/19 12/29/19 17:39 00:01 18:11 WBC RBC Hgb Hct MCH RDW Plt Count Lymph % (Auto) [place] % (Auto) [place] # Baso # Seg Neutrophils % Seg Neuts % (Manual) Lymphocytes % (Manual) Monocytes % (Manual) Seg Neutrophils # Seg Neutrophils # Man Lymphocytes # (Manual) Monocytes # (Manual) Eosinophils # (Manual) Basophils # (Manual) PT INR APTT ABG pH ABG pO2 ABG HCO3 ABG O2 Saturation ABG Base Excess ABG Hemoglobin Oxyhemoglobin Sodium Potassium Chloride Carbon Dioxide BUN Creatinine Glucose POC Glucose 117 H 139 H 130 H Lactic Acid Calcium Ionized Calcium Phosphorus Magnesium Total Bilirubin AST ALT Alkaline Phosphatase Ammonia Total Creatine Kinase CK-MB (CK-2) CK-MB (CK-2) Rel Index Total Protein Albumin Urine WBC (Auto) Vancomycin Trough Salicylates Acetaminophen Plasma/Serum Alcohol Crossmatch 12/29/19 12/30/19 12/30/19 23:09 00:02 01:06 WBC 16.7 H RBC 2.91 L Hgb 8.2 L Hct 25.4 L MCH RDW 18.7 H Plt Count 708 H Lymph % (Auto) 9.4 L [place] % (Auto) [place] # 0.9 H Baso # Seg Neutrophils % 83.5 H Seg Neuts % (Manual) Lymphocytes % (Manual) Monocytes % (Manual) Seg Neutrophils # 14.0 H Seg Neutrophils # Man Lymphocytes # (Manual) Monocytes # (Manual) Eosinophils # (Manual) Basophils # (Manual) PT INR APTT ABG pH ABG pO2 ABG HCO3 ABG O2 Saturation ABG Base Excess ABG Hemoglobin Oxyhemoglobin Sodium Potassium Chloride Carbon Dioxide BUN Creatinine Glucose POC Glucose 120 H 114 H Lactic Acid Calcium Ionized Calcium Phosphorus Magnesium Total Bilirubin AST ALT Alkaline Phosphatase Ammonia Total Creatine Kinase CK-MB (CK-2) CK-MB (CK-2) Rel Index Total Protein Albumin Urine WBC (Auto) Vancomycin Trough Salicylates Acetaminophen Plasma/Serum Alcohol Crossmatch 12/30/19 12/30/19 12/30/19 01:06 04:23 05:18 WBC RBC Hgb Hct MCH RDW Plt Count Lymph % (Auto) [place] % (Auto) [place] # Baso # Seg Neutrophils % Seg Neuts % (Manual) Lymphocytes % (Manual) Monocytes % (Manual) Seg Neutrophils # Seg Neutrophils # Man Lymphocytes # (Manual) Monocytes # (Manual) Eosinophils # (Manual) Basophils # (Manual) PT INR APTT ABG pH ABG pO2 ABG HCO3 ABG O2 Saturation ABG Base Excess ABG Hemoglobin 8.3 L Oxyhemoglobin Sodium Potassium Chloride Carbon Dioxide BUN 70 H Creatinine Glucose 122 H POC Glucose 130 H Lactic Acid Calcium Ionized Calcium Phosphorus Magnesium Total Bilirubin AST ALT Alkaline Phosphatase Ammonia Total Creatine Kinase CK-MB (CK-2) CK-MB (CK-2) Rel Index Total Protein Albumin Urine WBC (Auto) Vancomycin Trough Salicylates Acetaminophen Plasma/Serum Alcohol Crossmatch 12/30/19 12/30/19 12/30/19 05:40 12:17 17:43 WBC RBC Hgb Hct MCH RDW Plt Count Lymph % (Auto) [place] % (Auto) [place] # Baso # Seg Neutrophils % Seg Neuts % (Manual) Lymphocytes % (Manual) Monocytes % (Manual) Seg Neutrophils # Seg Neutrophils # Man Lymphocytes # (Manual) Monocytes # (Manual) Eosinophils # (Manual) Basophils # (Manual) PT INR APTT ABG pH ABG pO2 ABG HCO3 ABG O2 Saturation ABG Base Excess ABG Hemoglobin Oxyhemoglobin Sodium Potassium Chloride Carbon Dioxide BUN Creatinine Glucose POC Glucose 135 H 132 H 118 H Lactic Acid Calcium Ionized Calcium Phosphorus Magnesium Total Bilirubin AST ALT Alkaline Phosphatase Ammonia Total Creatine Kinase CK-MB (CK-2) CK-MB (CK-2) Rel Index Total Protein Albumin Urine WBC (Auto) Vancomycin Trough Salicylates Acetaminophen Plasma/Serum Alcohol Crossmatch 12/30/19 12/31/19 12/31/19 23:29 05:19 17:50 WBC RBC Hgb Hct MCH RDW Plt Count Lymph % (Auto) [place] % (Auto) [place] # Baso # Seg Neutrophils % Seg Neuts % (Manual) Lymphocytes % (Manual) Monocytes % (Manual) Seg Neutrophils # Seg Neutrophils # Man Lymphocytes # (Manual) Monocytes # (Manual) Eosinophils # (Manual) Basophils # (Manual) PT INR APTT ABG pH ABG pO2 ABG HCO3 ABG O2 Saturation ABG Base Excess ABG Hemoglobin Oxyhemoglobin Sodium Potassium Chloride Carbon Dioxide BUN Creatinine Glucose POC Glucose 114 H 109 H 116 H Lactic Acid Calcium Ionized Calcium Phosphorus Magnesium Total Bilirubin AST ALT Alkaline Phosphatase Ammonia Total Creatine Kinase CK-MB (CK-2) CK-MB (CK-2) Rel Index Total Protein Albumin Urine WBC (Auto) Vancomycin Trough Salicylates Acetaminophen Plasma/Serum Alcohol Crossmatch 01/01/20 01/01/20 01/01/20 00:10 05:19 12:02 WBC RBC Hgb Hct MCH RDW Plt Count Lymph % (Auto) [place] % (Auto) [place] # Baso # Seg Neutrophils % Seg Neuts % (Manual) Lymphocytes % (Manual) Monocytes % (Manual) Seg Neutrophils # Seg Neutrophils # Man Lymphocytes # (Manual) Monocytes # (Manual) Eosinophils # (Manual) Basophils # (Manual) PT INR APTT ABG pH ABG pO2 ABG HCO3 ABG O2 Saturation ABG Base Excess ABG Hemoglobin Oxyhemoglobin Sodium Potassium Chloride Carbon Dioxide BUN Creatinine Glucose POC Glucose 131 H 122 H 136 H Lactic Acid Calcium Ionized Calcium Phosphorus Magnesium Total Bilirubin AST ALT Alkaline Phosphatase Ammonia Total Creatine Kinase CK-MB (CK-2) CK-MB (CK-2) Rel Index Total Protein Albumin Urine WBC (Auto) Vancomycin Trough Salicylates Acetaminophen Plasma/Serum Alcohol Crossmatch 01/02/20 01/02/20 01/02/20 00:24 05:36 11:41 WBC RBC Hgb Hct MCH RDW Plt Count Lymph % (Auto) [place] % (Auto) [place] # Baso # Seg Neutrophils % Seg Neuts % (Manual) Lymphocytes % (Manual) Monocytes % (Manual) Seg Neutrophils # Seg Neutrophils # Man Lymphocytes # (Manual) Monocytes # (Manual) Eosinophils # (Manual) Basophils # (Manual) PT INR APTT ABG pH ABG pO2 ABG HCO3 ABG O2 Saturation ABG Base Excess ABG Hemoglobin Oxyhemoglobin Sodium Potassium Chloride Carbon Dioxide BUN Creatinine Glucose POC Glucose 119 H 109 H 125 H Lactic Acid Calcium Ionized Calcium Phosphorus Magnesium Total Bilirubin AST ALT Alkaline Phosphatase Ammonia Total Creatine Kinase CK-MB (CK-2) CK-MB (CK-2) Rel Index Total Protein Albumin Urine WBC (Auto) Vancomycin Trough Salicylates Acetaminophen Plasma/Serum Alcohol Crossmatch 01/02/20 01/03/20 01/03/20 17:49 05:29 12:13 WBC RBC Hgb Hct MCH RDW Plt Count Lymph % (Auto) [place] % (Auto) [place] # Baso # Seg Neutrophils % Seg Neuts % (Manual) Lymphocytes % (Manual) Monocytes % (Manual) Seg Neutrophils # Seg Neutrophils # Man Lymphocytes # (Manual) Monocytes # (Manual) Eosinophils # (Manual) Basophils # (Manual) PT INR APTT ABG pH ABG pO2 ABG HCO3 ABG O2 Saturation ABG Base Excess ABG Hemoglobin Oxyhemoglobin Sodium Potassium Chloride Carbon Dioxide BUN Creatinine Glucose POC Glucose 130 H 132 H 113 H Lactic Acid Calcium Ionized Calcium Phosphorus Magnesium Total Bilirubin AST ALT Alkaline Phosphatase Ammonia Total Creatine Kinase CK-MB (CK-2) CK-MB (CK-2) Rel Index Total Protein Albumin Urine WBC (Auto) Vancomycin Trough Salicylates Acetaminophen Plasma/Serum Alcohol Crossmatch 01/03/20 01/04/20 01/04/20 17:32 00:19 05:26 WBC RBC Hgb Hct MCH RDW Plt Count Lymph % (Auto) [place] % (Auto) [place] # Baso # Seg Neutrophils % Seg Neuts % (Manual) Lymphocytes % (Manual) Monocytes % (Manual) Seg Neutrophils # Seg Neutrophils # Man Lymphocytes # (Manual) Monocytes # (Manual) Eosinophils # (Manual) Basophils # (Manual) PT INR APTT ABG pH ABG pO2 ABG HCO3 ABG O2 Saturation ABG Base Excess ABG Hemoglobin Oxyhemoglobin Sodium Potassium Chloride Carbon Dioxide BUN Creatinine Glucose POC Glucose 127 H 141 H 129 H Lactic Acid Calcium Ionized Calcium Phosphorus Magnesium Total Bilirubin AST ALT Alkaline Phosphatase Ammonia Total Creatine Kinase CK-MB (CK-2) CK-MB (CK-2) Rel Index Total Protein Albumin Urine WBC (Auto) Vancomycin Trough Salicylates Acetaminophen Plasma/Serum Alcohol Crossmatch 01/04/20 01/04/20 01/05/20 11:39 17:29 05:22 WBC RBC Hgb Hct MCH RDW Plt Count Lymph % (Auto) [place] % (Auto) [place] # Baso # Seg Neutrophils % Seg Neuts % (Manual) Lymphocytes % (Manual) Monocytes % (Manual) Seg Neutrophils # Seg Neutrophils # Man Lymphocytes # (Manual) Monocytes # (Manual) Eosinophils # (Manual) Basophils # (Manual) PT INR APTT ABG pH ABG pO2 ABG HCO3 ABG O2 Saturation ABG Base Excess ABG Hemoglobin Oxyhemoglobin Sodium Potassium Chloride Carbon Dioxide BUN Creatinine Glucose POC Glucose 167 H 132 H 121 H Lactic Acid Calcium Ionized Calcium Phosphorus Magnesium Total Bilirubin AST ALT Alkaline Phosphatase Ammonia Total Creatine Kinase CK-MB (CK-2) CK-MB (CK-2) Rel Index Total Protein Albumin Urine WBC (Auto) Vancomycin Trough Salicylates Acetaminophen Plasma/Serum Alcohol Crossmatch 01/05/20 01/05/20 01/05/20 12:25 17:40 18:06 WBC RBC Hgb Hct MCH RDW Plt Count Lymph % (Auto) [place] % (Auto) [place] # Baso # Seg Neutrophils % Seg Neuts % (Manual) Lymphocytes % (Manual) Monocytes % (Manual) Seg Neutrophils # Seg Neutrophils # Man Lymphocytes # (Manual) Monocytes # (Manual) Eosinophils # (Manual) Basophils # (Manual) PT INR APTT ABG pH 7.472 H ABG pO2 99.2 H ABG HCO3 ABG O2 Saturation ABG Base Excess ABG Hemoglobin 7.8 L Oxyhemoglobin Sodium Potassium Chloride Carbon Dioxide BUN Creatinine Glucose POC Glucose 106 H 110 H Lactic Acid Calcium Ionized Calcium Phosphorus Magnesium Total Bilirubin AST ALT Alkaline Phosphatase Ammonia Total Creatine Kinase CK-MB (CK-2) CK-MB (CK-2) Rel Index Total Protein Albumin Urine WBC (Auto) Vancomycin Trough Salicylates Acetaminophen Plasma/Serum Alcohol Crossmatch 01/06/20 01/06/20 01/06/20 00:11 05:16 11:30 WBC RBC Hgb Hct MCH RDW Plt Count Lymph % (Auto) [place] % (Auto) [place] # Baso # Seg Neutrophils % Seg Neuts % (Manual) Lymphocytes % (Manual) Monocytes % (Manual) Seg Neutrophils # Seg Neutrophils # Man Lymphocytes # (Manual) Monocytes # (Manual) Eosinophils # (Manual) Basophils # (Manual) PT INR APTT ABG pH ABG pO2 ABG HCO3 ABG O2 Saturation ABG Base Excess ABG Hemoglobin Oxyhemoglobin Sodium Potassium Chloride Carbon Dioxide BUN Creatinine Glucose POC Glucose 108 H 124 H 125 H Lactic Acid Calcium Ionized Calcium Phosphorus Magnesium Total Bilirubin AST ALT Alkaline Phosphatase Ammonia Total Creatine Kinase CK-MB (CK-2) CK-MB (CK-2) Rel Index Total Protein Albumin Urine WBC (Auto) Vancomycin Trough Salicylates Acetaminophen Plasma/Serum Alcohol Crossmatch 01/06/20 01/06/20 01/07/20 17:53 23:51 04:12 WBC 16.5 H RBC 3.29 L Hgb 9.3 L Hct 28.1 L MCH RDW 18.2 H Plt Count 526 H Lymph % (Auto) 8.4 L [place] % (Auto) [place] # 1.0 H Baso # Seg Neutrophils % 84.4 H Seg Neuts % (Manual) Lymphocytes % (Manual) Monocytes % (Manual) Seg Neutrophils # 13.9 H Seg Neutrophils # Man Lymphocytes # (Manual) Monocytes # (Manual) Eosinophils # (Manual) Basophils # (Manual) PT INR APTT ABG pH ABG pO2 ABG HCO3 ABG O2 Saturation ABG Base Excess ABG Hemoglobin Oxyhemoglobin Sodium Potassium Chloride Carbon Dioxide BUN Creatinine Glucose POC Glucose 166 H 128 H Lactic Acid Calcium Ionized Calcium Phosphorus Magnesium Total Bilirubin AST ALT Alkaline Phosphatase Ammonia Total Creatine Kinase CK-MB (CK-2) CK-MB (CK-2) Rel Index Total Protein Albumin Urine WBC (Auto) Vancomycin Trough Salicylates Acetaminophen Plasma/Serum Alcohol Crossmatch 01/07/20 01/07/20 01/07/20 04:12 04:45 11:51 WBC RBC Hgb Hct MCH RDW Plt Count Lymph % (Auto) [place] % (Auto) [place] # Baso # Seg Neutrophils % Seg Neuts % (Manual) Lymphocytes % (Manual) Monocytes % (Manual) Seg Neutrophils # Seg Neutrophils # Man Lymphocytes # (Manual) Monocytes # (Manual) Eosinophils # (Manual) Basophils # (Manual) PT INR APTT ABG pH ABG pO2 ABG HCO3 ABG O2 Saturation ABG Base Excess ABG Hemoglobin Oxyhemoglobin Sodium 136 L Potassium Chloride Carbon Dioxide 21 L BUN 44 H Creatinine 0.6 L Glucose 124 H POC Glucose 134 H 138 H Lactic Acid Calcium Ionized Calcium Phosphorus Magnesium Total Bilirubin AST ALT Alkaline Phosphatase Ammonia Total Creatine Kinase CK-MB (CK-2) CK-MB (CK-2) Rel Index Total Protein Albumin Urine WBC (Auto) Vancomycin Trough Salicylates Acetaminophen Plasma/Serum Alcohol Crossmatch 01/07/20 01/08/20 01/08/20 17:36 00:33 05:29 WBC RBC Hgb Hct MCH RDW Plt Count Lymph % (Auto) [place] % (Auto) [place] # Baso # Seg Neutrophils % Seg Neuts % (Manual) Lymphocytes % (Manual) Monocytes % (Manual) Seg Neutrophils # Seg Neutrophils # Man Lymphocytes # (Manual) Monocytes # (Manual) Eosinophils # (Manual) Basophils # (Manual) PT INR APTT ABG pH ABG pO2 ABG HCO3 ABG O2 Saturation ABG Base Excess ABG Hemoglobin Oxyhemoglobin Sodium Potassium Chloride Carbon Dioxide BUN Creatinine Glucose POC Glucose 128 H 119 H 124 H Lactic Acid Calcium Ionized Calcium Phosphorus Magnesium Total Bilirubin AST ALT Alkaline Phosphatase Ammonia Total Creatine Kinase CK-MB (CK-2) CK-MB (CK-2) Rel Index Total Protein Albumin Urine WBC (Auto) Vancomycin Trough Salicylates Acetaminophen Plasma/Serum Alcohol Crossmatch 01/08/20 01/08/20 01/08/20 12:51 20:25 23:22 WBC RBC Hgb Hct MCH RDW Plt Count Lymph % (Auto) [place] % (Auto) [place] # Baso # Seg Neutrophils % Seg Neuts % (Manual) Lymphocytes % (Manual) Monocytes % (Manual) Seg Neutrophils # Seg Neutrophils # Man Lymphocytes # (Manual) Monocytes # (Manual) Eosinophils # (Manual) Basophils # (Manual) PT INR APTT ABG pH ABG pO2 132.2 H ABG HCO3 ABG O2 Saturation ABG Base Excess ABG Hemoglobin Oxyhemoglobin Sodium Potassium Chloride Carbon Dioxide BUN Creatinine Glucose POC Glucose 128 H 127 H Lactic Acid Calcium Ionized Calcium Phosphorus Magnesium Total Bilirubin AST ALT Alkaline Phosphatase Ammonia Total Creatine Kinase CK-MB (CK-2) CK-MB (CK-2) Rel Index Total Protein Albumin Urine WBC (Auto) Vancomycin Trough Salicylates Acetaminophen Plasma/Serum Alcohol Crossmatch 01/09/20 01/09/20 01/09/20 05:48 08:51 11:29 WBC RBC Hgb Hct MCH RDW Plt Count Lymph % (Auto) [place] % (Auto) [place] # Baso # Seg Neutrophils % Seg Neuts % (Manual) Lymphocytes % (Manual) Monocytes % (Manual) Seg Neutrophils # Seg Neutrophils # Man Lymphocytes # (Manual) Monocytes # (Manual) Eosinophils # (Manual) Basophils # (Manual) PT INR APTT ABG pH ABG pO2 94.3 H ABG HCO3 ABG O2 Saturation ABG Base Excess ABG Hemoglobin 9.5 L Oxyhemoglobin Sodium Potassium Chloride Carbon Dioxide BUN Creatinine Glucose POC Glucose 120 H 112 H Lactic Acid Calcium Ionized Calcium Phosphorus Magnesium Total Bilirubin AST ALT Alkaline Phosphatase Ammonia Total Creatine Kinase CK-MB (CK-2) CK-MB (CK-2) Rel Index Total Protein Albumin Urine WBC (Auto) Vancomycin Trough Salicylates Acetaminophen Plasma/Serum Alcohol Crossmatch 01/09/20 01/10/20 01/10/20 17:57 05:17 12:28 WBC RBC Hgb Hct MCH RDW Plt Count Lymph % (Auto) [place] % (Auto) [place] # Baso # Seg Neutrophils % Seg Neuts % (Manual) Lymphocytes % (Manual) Monocytes % (Manual) Seg Neutrophils # Seg Neutrophils # Man Lymphocytes # (Manual) Monocytes # (Manual) Eosinophils # (Manual) Basophils # (Manual) PT INR APTT ABG pH ABG pO2 ABG HCO3 ABG O2 Saturation ABG Base Excess ABG Hemoglobin Oxyhemoglobin Sodium Potassium Chloride Carbon Dioxide BUN Creatinine Glucose POC Glucose 122 H 115 H 116 H Lactic Acid Calcium Ionized Calcium Phosphorus Magnesium Total Bilirubin AST ALT Alkaline Phosphatase Ammonia Total Creatine Kinase CK-MB (CK-2) CK-MB (CK-2) Rel Index Total Protein Albumin Urine WBC (Auto) Vancomycin Trough Salicylates Acetaminophen Plasma/Serum Alcohol Crossmatch 01/10/20 01/10/20 01/11/20 18:25 23:47 06:05 WBC RBC Hgb Hct MCH RDW Plt Count Lymph % (Auto) [place] % (Auto) [place] # Baso # Seg Neutrophils % Seg Neuts % (Manual) Lymphocytes % (Manual) Monocytes % (Manual) Seg Neutrophils # Seg Neutrophils # Man Lymphocytes # (Manual) Monocytes # (Manual) Eosinophils # (Manual) Basophils # (Manual) PT INR APTT ABG pH ABG pO2 ABG HCO3 ABG O2 Saturation ABG Base Excess ABG Hemoglobin Oxyhemoglobin Sodium Potassium Chloride Carbon Dioxide BUN Creatinine Glucose POC Glucose 123 H 115 H 151 H Lactic Acid Calcium Ionized Calcium Phosphorus Magnesium Total Bilirubin AST ALT Alkaline Phosphatase Ammonia Total Creatine Kinase CK-MB (CK-2) CK-MB (CK-2) Rel Index Total Protein Albumin Urine WBC (Auto) Vancomycin Trough Salicylates Acetaminophen Plasma/Serum Alcohol Crossmatch 01/11/20 01/11/20 01/11/20 07:00 07:00 12:27 WBC 11.8 H RBC 3.40 L Hgb 9.4 L Hct 29.3 L MCH RDW 18.1 H Plt Count 549 H Lymph % (Auto) [place] % (Auto) 9.1 H [place] # 1.1 H Baso # Seg Neutrophils % 73.3 H Seg Neuts % (Manual) Lymphocytes % (Manual) Monocytes % (Manual) Seg Neutrophils # 8.7 H Seg Neutrophils # Man Lymphocytes # (Manual) Monocytes # (Manual) Eosinophils # (Manual) Basophils # (Manual) PT INR APTT ABG pH ABG pO2 ABG HCO3 ABG O2 Saturation ABG Base Excess ABG Hemoglobin Oxyhemoglobin Sodium 134 L Potassium Chloride 97.7 L Carbon Dioxide 21 L BUN 38 H Creatinine 0.5 L Glucose 168 H POC Glucose 117 H Lactic Acid Calcium 10.5 H Ionized Calcium Phosphorus Magnesium Total Bilirubin AST ALT Alkaline Phosphatase Ammonia Total Creatine Kinase CK-MB (CK-2) CK-MB (CK-2) Rel Index Total Protein Albumin Urine WBC (Auto) Vancomycin Trough Salicylates Acetaminophen Plasma/Serum Alcohol Crossmatch 01/11/20 01/12/20 01/12/20 18:19 00:53 05:24 WBC RBC Hgb Hct MCH RDW Plt Count Lymph % (Auto) [place] % (Auto) [place] # Baso # Seg Neutrophils % Seg Neuts % (Manual) Lymphocytes % (Manual) Monocytes % (Manual) Seg Neutrophils # Seg Neutrophils # Man Lymphocytes # (Manual) Monocytes # (Manual) Eosinophils # (Manual) Basophils # (Manual) PT INR APTT ABG pH ABG pO2 ABG HCO3 ABG O2 Saturation ABG Base Excess ABG Hemoglobin Oxyhemoglobin Sodium Potassium Chloride Carbon Dioxide BUN Creatinine Glucose POC Glucose 126 H 126 H 128 H Lactic Acid Calcium Ionized Calcium Phosphorus Magnesium Total Bilirubin AST ALT Alkaline Phosphatase Ammonia Total Creatine Kinase CK-MB (CK-2) CK-MB (CK-2) Rel Index Total Protein Albumin Urine WBC (Auto) Vancomycin Trough Salicylates Acetaminophen Plasma/Serum Alcohol Crossmatch 01/12/20 01/12/20 01/13/20 13:39 18:02 00:27 WBC RBC Hgb Hct MCH RDW Plt Count Lymph % (Auto) [place] % (Auto) [place] # Baso # Seg Neutrophils % Seg Neuts % (Manual) Lymphocytes % (Manual) Monocytes % (Manual) Seg Neutrophils # Seg Neutrophils # Man Lymphocytes # (Manual) Monocytes # (Manual) Eosinophils # (Manual) Basophils # (Manual) PT INR APTT ABG pH ABG pO2 ABG HCO3 ABG O2 Saturation ABG Base Excess ABG Hemoglobin Oxyhemoglobin Sodium Potassium Chloride Carbon Dioxide BUN Creatinine Glucose POC Glucose 146 H 125 H 131 H Lactic Acid Calcium Ionized Calcium Phosphorus Magnesium Total Bilirubin AST ALT Alkaline Phosphatase Ammonia Total Creatine Kinase CK-MB (CK-2) CK-MB (CK-2) Rel Index Total Protein Albumin Urine WBC (Auto) Vancomycin Trough Salicylates Acetaminophen Plasma/Serum Alcohol Crossmatch 01/13/20 01/13/20 01/13/20 05:44 11:54 17:18 WBC RBC Hgb Hct MCH RDW Plt Count Lymph % (Auto) [place] % (Auto) [place] # Baso # Seg Neutrophils % Seg Neuts % (Manual) Lymphocytes % (Manual) Monocytes % (Manual) Seg Neutrophils # Seg Neutrophils # Man Lymphocytes # (Manual) Monocytes # (Manual) Eosinophils # (Manual) Basophils # (Manual) PT INR APTT ABG pH ABG pO2 ABG HCO3 ABG O2 Saturation ABG Base Excess ABG Hemoglobin Oxyhemoglobin Sodium Potassium Chloride Carbon Dioxide BUN Creatinine Glucose POC Glucose 148 H 140 H 130 H Lactic Acid Calcium Ionized Calcium Phosphorus Magnesium Total Bilirubin AST ALT Alkaline Phosphatase Ammonia Total Creatine Kinase CK-MB (CK-2) CK-MB (CK-2) Rel Index Total Protein Albumin Urine WBC (Auto) Vancomycin Trough Salicylates Acetaminophen Plasma/Serum Alcohol Crossmatch 01/14/20 01/14/20 01/14/20 00:16 05:45 12:19 WBC RBC Hgb Hct MCH RDW Plt Count Lymph % (Auto) [place] % (Auto) [place] # Baso # Seg Neutrophils % Seg Neuts % (Manual) Lymphocytes % (Manual) Monocytes % (Manual) Seg Neutrophils # Seg Neutrophils # Man Lymphocytes # (Manual) Monocytes # (Manual) Eosinophils # (Manual) Basophils # (Manual) PT INR APTT ABG pH ABG pO2 ABG HCO3 ABG O2 Saturation ABG Base Excess ABG Hemoglobin Oxyhemoglobin Sodium Potassium Chloride Carbon Dioxide BUN Creatinine Glucose POC Glucose 125 H 146 H 147 H Lactic Acid Calcium Ionized Calcium Phosphorus Magnesium Total Bilirubin AST ALT Alkaline Phosphatase Ammonia Total Creatine Kinase CK-MB (CK-2) CK-MB (CK-2) Rel Index Total Protein Albumin Urine WBC (Auto) Vancomycin Trough Salicylates Acetaminophen Plasma/Serum Alcohol Crossmatch 01/14/20 01/14/20 01/15/20 18:10 23:54 05:14 WBC RBC Hgb Hct MCH RDW Plt Count Lymph % (Auto) [place] % (Auto) [place] # Baso # Seg Neutrophils % Seg Neuts % (Manual) Lymphocytes % (Manual) Monocytes % (Manual) Seg Neutrophils # Seg Neutrophils # Man Lymphocytes # (Manual) Monocytes # (Manual) Eosinophils # (Manual) Basophils # (Manual) PT INR APTT ABG pH ABG pO2 ABG HCO3 ABG O2 Saturation ABG Base Excess ABG Hemoglobin Oxyhemoglobin Sodium Potassium Chloride Carbon Dioxide BUN Creatinine Glucose POC Glucose 136 H 109 H 111 H Lactic Acid Calcium Ionized Calcium Phosphorus Magnesium Total Bilirubin AST ALT Alkaline Phosphatase Ammonia Total Creatine Kinase CK-MB (CK-2) CK-MB (CK-2) Rel Index Total Protein Albumin Urine WBC (Auto) Vancomycin Trough Salicylates Acetaminophen Plasma/Serum Alcohol Crossmatch 01/15/20 01/15/20 01/16/20 12:34 23:25 05:06 WBC RBC Hgb Hct MCH RDW Plt Count Lymph % (Auto) [place] % (Auto) [place] # Baso # Seg Neutrophils % Seg Neuts % (Manual) Lymphocytes % (Manual) Monocytes % (Manual) Seg Neutrophils # Seg Neutrophils # Man Lymphocytes # (Manual) Monocytes # (Manual) Eosinophils # (Manual) Basophils # (Manual) PT INR APTT ABG pH ABG pO2 ABG HCO3 ABG O2 Saturation ABG Base Excess ABG Hemoglobin Oxyhemoglobin Sodium Potassium Chloride Carbon Dioxide BUN Creatinine Glucose POC Glucose 131 H 120 H 121 H Lactic Acid Calcium Ionized Calcium Phosphorus Magnesium Total Bilirubin AST ALT Alkaline Phosphatase Ammonia Total Creatine Kinase CK-MB (CK-2) CK-MB (CK-2) Rel Index Total Protein Albumin Urine WBC (Auto) Vancomycin Trough Salicylates Acetaminophen Plasma/Serum Alcohol Crossmatch 01/16/20 01/16/20 01/17/20 12:15 23:46 05:32 WBC 13.6 H RBC 3.27 L Hgb 9.3 L Hct 28.5 L MCH RDW 17.0 H Plt Count 490 H Lymph % (Auto) 13.1 L [place] % (Auto) [place] # 1.0 H Baso # Seg Neutrophils % 77.5 H Seg Neuts % (Manual) Lymphocytes % (Manual) Monocytes % (Manual) Seg Neutrophils # 10.5 H Seg Neutrophils # Man Lymphocytes # (Manual) Monocytes # (Manual) Eosinophils # (Manual) Basophils # (Manual) PT INR APTT ABG pH ABG pO2 ABG HCO3 ABG O2 Saturation ABG Base Excess ABG Hemoglobin Oxyhemoglobin Sodium Potassium Chloride Carbon Dioxide BUN Creatinine Glucose POC Glucose 152 H 107 H Lactic Acid Calcium Ionized Calcium Phosphorus Magnesium Total Bilirubin AST ALT Alkaline Phosphatase Ammonia Total Creatine Kinase CK-MB (CK-2) CK-MB (CK-2) Rel Index Total Protein Albumin Urine WBC (Auto) Vancomycin Trough Salicylates Acetaminophen Plasma/Serum Alcohol Crossmatch 01/17/20 01/17/20 01/17/20 06:47 12:16 17:21 WBC RBC Hgb Hct MCH RDW Plt Count Lymph % (Auto) [place] % (Auto) [place] # Baso # Seg Neutrophils % Seg Neuts % (Manual) Lymphocytes % (Manual) Monocytes % (Manual) Seg Neutrophils # Seg Neutrophils # Man Lymphocytes # (Manual) Monocytes # (Manual) Eosinophils # (Manual) Basophils # (Manual) PT INR APTT ABG pH ABG pO2 ABG HCO3 ABG O2 Saturation ABG Base Excess ABG Hemoglobin Oxyhemoglobin Sodium Potassium Chloride Carbon Dioxide BUN Creatinine Glucose POC Glucose 112 H 145 H 150 H Lactic Acid Calcium Ionized Calcium Phosphorus Magnesium Total Bilirubin AST ALT Alkaline Phosphatase Ammonia Total Creatine Kinase CK-MB (CK-2) CK-MB (CK-2) Rel Index Total Protein Albumin Urine WBC (Auto) Vancomycin Trough Salicylates Acetaminophen Plasma/Serum Alcohol Crossmatch 01/17/20 01/18/20 01/18/20 23:34 05:47 12:43 WBC RBC Hgb Hct MCH RDW Plt Count Lymph % (Auto) [place] % (Auto) [place] # Baso # Seg Neutrophils % Seg Neuts % (Manual) Lymphocytes % (Manual) Monocytes % (Manual) Seg Neutrophils # Seg Neutrophils # Man Lymphocytes # (Manual) Monocytes # (Manual) Eosinophils # (Manual) Basophils # (Manual) PT INR APTT ABG pH ABG pO2 ABG HCO3 ABG O2 Saturation ABG Base Excess ABG Hemoglobin Oxyhemoglobin Sodium Potassium Chloride Carbon Dioxide BUN Creatinine Glucose POC Glucose 160 H 130 H 124 H Lactic Acid Calcium Ionized Calcium Phosphorus Magnesium Total Bilirubin AST ALT Alkaline Phosphatase Ammonia Total Creatine Kinase CK-MB (CK-2) CK-MB (CK-2) Rel Index Total Protein Albumin Urine WBC (Auto) Vancomycin Trough Salicylates Acetaminophen Plasma/Serum Alcohol Crossmatch 01/18/20 01/19/20 01/19/20 18:26 00:14 06:24 WBC RBC Hgb Hct MCH RDW Plt Count Lymph % (Auto) [place] % (Auto) [place] # Baso # Seg Neutrophils % Seg Neuts % (Manual) Lymphocytes % (Manual) Monocytes % (Manual) Seg Neutrophils # Seg Neutrophils # Man Lymphocytes # (Manual) Monocytes # (Manual) Eosinophils # (Manual) Basophils # (Manual) PT INR APTT ABG pH ABG pO2 ABG HCO3 ABG O2 Saturation ABG Base Excess ABG Hemoglobin Oxyhemoglobin Sodium Potassium Chloride Carbon Dioxide BUN Creatinine Glucose POC Glucose 119 H 114 H 144 H Lactic Acid Calcium Ionized Calcium Phosphorus Magnesium Total Bilirubin AST ALT Alkaline Phosphatase Ammonia Total Creatine Kinase CK-MB (CK-2) CK-MB (CK-2) Rel Index Total Protein Albumin Urine WBC (Auto) Vancomycin Trough Salicylates Acetaminophen Plasma/Serum Alcohol Crossmatch 01/19/20 01/19/20 01/20/20 12:24 17:50 12:06 WBC RBC Hgb Hct MCH RDW Plt Count Lymph % (Auto) [place] % (Auto) [place] # Baso # Seg Neutrophils % Seg Neuts % (Manual) Lymphocytes % (Manual) Monocytes % (Manual) Seg Neutrophils # Seg Neutrophils # Man Lymphocytes # (Manual) Monocytes # (Manual) Eosinophils # (Manual) Basophils # (Manual) PT INR APTT ABG pH ABG pO2 ABG HCO3 ABG O2 Saturation ABG Base Excess ABG Hemoglobin Oxyhemoglobin Sodium Potassium Chloride Carbon Dioxide BUN Creatinine Glucose POC Glucose 132 H 144 H 135 H Lactic Acid Calcium Ionized Calcium Phosphorus Magnesium Total Bilirubin AST ALT Alkaline Phosphatase Ammonia Total Creatine Kinase CK-MB (CK-2) CK-MB (CK-2) Rel Index Total Protein Albumin Urine WBC (Auto) Vancomycin Trough Salicylates Acetaminophen Plasma/Serum Alcohol Crossmatch 01/21/20 01/21/20 01/21/20 05:46 13:02 23:49 WBC RBC Hgb Hct MCH RDW Plt Count Lymph % (Auto) [place] % (Auto) [place] # Baso # Seg Neutrophils % Seg Neuts % (Manual) Lymphocytes % (Manual) Monocytes % (Manual) Seg Neutrophils # Seg Neutrophils # Man Lymphocytes # (Manual) Monocytes # (Manual) Eosinophils # (Manual) Basophils # (Manual) PT INR APTT ABG pH ABG pO2 ABG HCO3 ABG O2 Saturation ABG Base Excess ABG Hemoglobin Oxyhemoglobin Sodium Potassium Chloride Carbon Dioxide BUN Creatinine Glucose POC Glucose 114 H 136 H 120 H Lactic Acid Calcium Ionized Calcium Phosphorus Magnesium Total Bilirubin AST ALT Alkaline Phosphatase Ammonia Total Creatine Kinase CK-MB (CK-2) CK-MB (CK-2) Rel Index Total Protein Albumin Urine WBC (Auto) Vancomycin Trough Salicylates Acetaminophen Plasma/Serum Alcohol Crossmatch 01/22/20 01/22/20 01/22/20 05:41 11:44 16:31 WBC RBC Hgb Hct MCH RDW Plt Count Lymph % (Auto) [place] % (Auto) [place] # Baso # Seg Neutrophils % Seg Neuts % (Manual) Lymphocytes % (Manual) Monocytes % (Manual) Seg Neutrophils # Seg Neutrophils # Man Lymphocytes # (Manual) Monocytes # (Manual) Eosinophils # (Manual) Basophils # (Manual) PT INR APTT ABG pH ABG pO2 ABG HCO3 ABG O2 Saturation ABG Base Excess ABG Hemoglobin Oxyhemoglobin Sodium Potassium Chloride Carbon Dioxide BUN Creatinine Glucose POC Glucose 124 H 173 H 111 H Lactic Acid Calcium Ionized Calcium Phosphorus Magnesium Total Bilirubin AST ALT Alkaline Phosphatase Ammonia Total Creatine Kinase CK-MB (CK-2) CK-MB (CK-2) Rel Index Total Protein Albumin Urine WBC (Auto) Vancomycin Trough Salicylates Acetaminophen Plasma/Serum Alcohol Crossmatch 01/22/20 01/23/20 01/23/20 23:25 05:15 12:15 WBC RBC Hgb Hct MCH RDW Plt Count Lymph % (Auto) [place] % (Auto) [place] # Baso # Seg Neutrophils % Seg Neuts % (Manual) Lymphocytes % (Manual) Monocytes % (Manual) Seg Neutrophils # Seg Neutrophils # Man Lymphocytes # (Manual) Monocytes # (Manual) Eosinophils # (Manual) Basophils # (Manual) PT INR APTT ABG pH ABG pO2 ABG HCO3 ABG O2 Saturation ABG Base Excess ABG Hemoglobin Oxyhemoglobin Sodium Potassium Chloride Carbon Dioxide BUN Creatinine Glucose POC Glucose 134 H 117 H 129 H Lactic Acid Calcium Ionized Calcium Phosphorus Magnesium Total Bilirubin AST ALT Alkaline Phosphatase Ammonia Total Creatine Kinase CK-MB (CK-2) CK-MB (CK-2) Rel Index Total Protein Albumin Urine WBC (Auto) Vancomycin Trough Salicylates Acetaminophen Plasma/Serum Alcohol Crossmatch 01/23/20 01/23/20 01/23/20 16:58 21:17 23:47 WBC RBC Hgb Hct MCH RDW Plt Count Lymph % (Auto) [place] % (Auto) [place] # Baso # Seg Neutrophils % Seg Neuts % (Manual) Lymphocytes % (Manual) Monocytes % (Manual) Seg Neutrophils # Seg Neutrophils # Man Lymphocytes # (Manual) Monocytes # (Manual) Eosinophils # (Manual) Basophils # (Manual) PT INR APTT ABG pH ABG pO2 ABG HCO3 ABG O2 Saturation ABG Base Excess ABG Hemoglobin Oxyhemoglobin Sodium Potassium Chloride Carbon Dioxide BUN Creatinine Glucose POC Glucose 156 H 185 H 156 H Lactic Acid Calcium Ionized Calcium Phosphorus Magnesium Total Bilirubin AST ALT Alkaline Phosphatase Ammonia Total Creatine Kinase CK-MB (CK-2) CK-MB (CK-2) Rel Index Total Protein Albumin Urine WBC (Auto) Vancomycin Trough Salicylates Acetaminophen Plasma/Serum Alcohol Crossmatch 01/24/20 01/24/20 01/24/20 04:47 04:47 05:59 WBC 17.8 H RBC 3.60 L Hgb Hct MCH RDW 16.2 H Plt Count 688 H Lymph % (Auto) 11.8 L [place] % (Auto) 7.5 H [place] # 1.3 H Baso # Seg Neutrophils % 79.9 H Seg Neuts % (Manual) Lymphocytes % (Manual) Monocytes % (Manual) Seg Neutrophils # 14.2 H Seg Neutrophils # Man Lymphocytes # (Manual) Monocytes # (Manual) Eosinophils # (Manual) Basophils # (Manual) PT INR APTT ABG pH ABG pO2 ABG HCO3 ABG O2 Saturation ABG Base Excess ABG Hemoglobin Oxyhemoglobin Sodium 131 L Potassium Chloride 91.2 L Carbon Dioxide BUN 22 H Creatinine 0.3 L Glucose 123 H POC Glucose 147 H Lactic Acid Calcium 10.9 H Ionized Calcium Phosphorus Magnesium Total Bilirubin AST ALT Alkaline Phosphatase Ammonia Total Creatine Kinase CK-MB (CK-2) CK-MB (CK-2) Rel Index Total Protein Albumin Urine WBC (Auto) Vancomycin Trough Salicylates Acetaminophen Plasma/Serum Alcohol Crossmatch 01/24/20 01/24/20 01/25/20 11:47 16:45 00:18 WBC RBC Hgb Hct MCH RDW Plt Count Lymph % (Auto) [place] % (Auto) [place] # Baso # Seg Neutrophils % Seg Neuts % (Manual) Lymphocytes % (Manual) Monocytes % (Manual) Seg Neutrophils # Seg Neutrophils # Man Lymphocytes # (Manual) Monocytes # (Manual) Eosinophils # (Manual) Basophils # (Manual) PT INR APTT ABG pH ABG pO2 ABG HCO3 ABG O2 Saturation ABG Base Excess ABG Hemoglobin Oxyhemoglobin Sodium Potassium Chloride Carbon Dioxide BUN Creatinine Glucose POC Glucose 114 H 108 H 119 H Lactic Acid Calcium Ionized Calcium Phosphorus Magnesium Total Bilirubin AST ALT Alkaline Phosphatase Ammonia Total Creatine Kinase CK-MB (CK-2) CK-MB (CK-2) Rel Index Total Protein Albumin Urine WBC (Auto) Vancomycin Trough Salicylates Acetaminophen Plasma/Serum Alcohol Crossmatch 01/25/20 01/25/20 01/25/20 07:18 11:58 16:56 WBC RBC Hgb Hct MCH RDW Plt Count Lymph % (Auto) [place] % (Auto) [place] # Baso # Seg Neutrophils % Seg Neuts % (Manual) Lymphocytes % (Manual) Monocytes % (Manual) Seg Neutrophils # Seg Neutrophils # Man Lymphocytes # (Manual) Monocytes # (Manual) Eosinophils # (Manual) Basophils # (Manual) PT INR APTT ABG pH ABG pO2 ABG HCO3 ABG O2 Saturation ABG Base Excess ABG Hemoglobin Oxyhemoglobin Sodium Potassium Chloride Carbon Dioxide BUN Creatinine Glucose POC Glucose 136 H 136 H 147 H Lactic Acid Calcium Ionized Calcium Phosphorus Magnesium Total Bilirubin AST ALT Alkaline Phosphatase Ammonia Total Creatine Kinase CK-MB (CK-2) CK-MB (CK-2) Rel Index Total Protein Albumin Urine WBC (Auto) Vancomycin Trough Salicylates Acetaminophen Plasma/Serum Alcohol Crossmatch 01/26/20 01/26/20 01/26/20 00:29 05:59 05:59 WBC 12.8 H RBC Hgb Hct MCH RDW 16.4 H Plt Count 743 H Lymph % (Auto) [place] % (Auto) [place] # 0.9 H Baso # Seg Neutrophils % 76.2 H Seg Neuts % (Manual) Lymphocytes % (Manual) Monocytes % (Manual) Seg Neutrophils # 9.8 H Seg Neutrophils # Man Lymphocytes # (Manual) Monocytes # (Manual) Eosinophils # (Manual) Basophils # (Manual) PT INR APTT ABG pH ABG pO2 ABG HCO3 ABG O2 Saturation ABG Base Excess ABG Hemoglobin Oxyhemoglobin Sodium 132 L Potassium Chloride 90.9 L Carbon Dioxide BUN 23 H Creatinine 0.4 L Glucose 122 H POC Glucose 107 H Lactic Acid Calcium 11.0 H Ionized Calcium Phosphorus Magnesium Total Bilirubin AST ALT Alkaline Phosphatase Ammonia Total Creatine Kinase CK-MB (CK-2) CK-MB (CK-2) Rel Index Total Protein Albumin Urine WBC (Auto) Vancomycin Trough Salicylates Acetaminophen Plasma/Serum Alcohol Crossmatch 01/26/20 01/26/20 01/26/20 06:27 12:06 16:49 WBC RBC Hgb Hct MCH RDW Plt Count Lymph % (Auto) [place] % (Auto) [place] # Baso # Seg Neutrophils % Seg Neuts % (Manual) Lymphocytes % (Manual) Monocytes % (Manual) Seg Neutrophils # Seg Neutrophils # Man Lymphocytes # (Manual) Monocytes # (Manual) Eosinophils # (Manual) Basophils # (Manual) PT INR APTT ABG pH ABG pO2 ABG HCO3 ABG O2 Saturation ABG Base Excess ABG Hemoglobin Oxyhemoglobin Sodium Potassium Chloride Carbon Dioxide BUN Creatinine Glucose POC Glucose 132 H 132 H 110 H Lactic Acid Calcium Ionized Calcium Phosphorus Magnesium Total Bilirubin AST ALT Alkaline Phosphatase Ammonia Total Creatine Kinase CK-MB (CK-2) CK-MB (CK-2) Rel Index Total Protein Albumin Urine WBC (Auto) Vancomycin Trough Salicylates Acetaminophen Plasma/Serum Alcohol Crossmatch 01/27/20 01/27/20 01/27/20 00:08 11:49 16:24 WBC RBC Hgb Hct MCH RDW Plt Count Lymph % (Auto) [place] % (Auto) [place] # Baso # Seg Neutrophils % Seg Neuts % (Manual) Lymphocytes % (Manual) Monocytes % (Manual) Seg Neutrophils # Seg Neutrophils # Man Lymphocytes # (Manual) Monocytes # (Manual) Eosinophils # (Manual) Basophils # (Manual) PT INR APTT ABG pH ABG pO2 ABG HCO3 ABG O2 Saturation ABG Base Excess ABG Hemoglobin Oxyhemoglobin Sodium Potassium Chloride Carbon Dioxide BUN Creatinine Glucose POC Glucose 107 H 119 H 129 H Lactic Acid Calcium Ionized Calcium Phosphorus Magnesium Total Bilirubin AST ALT Alkaline Phosphatase Ammonia Total Creatine Kinase CK-MB (CK-2) CK-MB (CK-2) Rel Index Total Protein Albumin Urine WBC (Auto) Vancomycin Trough Salicylates Acetaminophen Plasma/Serum Alcohol Crossmatch 01/27/20 01/28/2001/27/20 18:28 01:00 06:22 WBC RBC Hgb Hct MCH RDW Plt Count Lymph % (Auto) [place] % (Auto) [place] # Baso # Seg Neutrophils % Seg Neuts % (Manual) Lymphocytes % (Manual) Monocytes % (Manual) Seg Neutrophils # Seg Neutrophils # Man Lymphocytes # (Manual) Monocytes # (Manual) Eosinophils # (Manual) Basophils # (Manual) PT INR APTT ABG pH ABG pO2 ABG HCO3 ABG O2 Saturation ABG Base Excess ABG Hemoglobin Oxyhemoglobin Sodium Potassium Chloride Carbon Dioxide BUN Creatinine Glucose POC Glucose 126 H 121 H 114 H Lactic Acid Calcium Ionized Calcium Phosphorus Magnesium Total Bilirubin AST ALT Alkaline Phosphatase Ammonia Total Creatine Kinase CK-MB (CK-2) CK-MB (CK-2) Rel Index Total Protein Albumin Urine WBC (Auto) Vancomycin Trough Salicylates Acetaminophen Plasma/Serum Alcohol Crossmatch 01/28/20 01/28/20 01/29/20 11:47 18:00 00:05 WBC RBC Hgb Hct MCH RDW Plt Count Lymph % (Auto) [place] % (Auto) [place] # Baso # Seg Neutrophils % Seg Neuts % (Manual) Lymphocytes % (Manual) Monocytes % (Manual) Seg Neutrophils # Seg Neutrophils # Man Lymphocytes # (Manual) Monocytes # (Manual) Eosinophils # (Manual) Basophils # (Manual) PT INR APTT ABG pH ABG pO2 ABG HCO3 ABG O2 Saturation ABG Base Excess ABG Hemoglobin Oxyhemoglobin Sodium Potassium Chloride Carbon Dioxide BUN Creatinine Glucose POC Glucose 106 H 117 H 127 H Lactic Acid Calcium Ionized Calcium Phosphorus Magnesium Total Bilirubin AST ALT Alkaline Phosphatase Ammonia Total Creatine Kinase CK-MB (CK-2) CK-MB (CK-2) Rel Index Total Protein Albumin Urine WBC (Auto) Vancomycin Trough Salicylates Acetaminophen Plasma/Serum Alcohol Crossmatch 01/29/20 01/29/20 01/29/20 06:04 11:40 16:38 WBC RBC Hgb Hct MCH RDW Plt Count Lymph % (Auto) [place] % (Auto) [place] # Baso # Seg Neutrophils % Seg Neuts % (Manual) Lymphocytes % (Manual) Monocytes % (Manual) Seg Neutrophils # Seg Neutrophils # Man Lymphocytes # (Manual) Monocytes # (Manual) Eosinophils # (Manual) Basophils # (Manual) PT INR APTT ABG pH ABG pO2 ABG HCO3 ABG O2 Saturation ABG Base Excess ABG Hemoglobin Oxyhemoglobin Sodium Potassium Chloride Carbon Dioxide BUN Creatinine Glucose POC Glucose 147 H 139 H 143 H Lactic Acid Calcium Ionized Calcium Phosphorus Magnesium Total Bilirubin AST ALT Alkaline Phosphatase Ammonia Total Creatine Kinase CK-MB (CK-2) CK-MB (CK-2) Rel Index Total Protein Albumin Urine WBC (Auto) Vancomycin Trough Salicylates Acetaminophen Plasma/Serum Alcohol Crossmatch 01/29/20 01/30/20 01/30/20 23:46 06:43 12:07 WBC RBC Hgb Hct MCH RDW Plt Count Lymph % (Auto) [place] % (Auto) [place] # Baso # Seg Neutrophils % Seg Neuts % (Manual) Lymphocytes % (Manual) Monocytes % (Manual) Seg Neutrophils # Seg Neutrophils # Man Lymphocytes # (Manual) Monocytes # (Manual) Eosinophils # (Manual) Basophils # (Manual) PT INR APTT ABG pH ABG pO2 ABG HCO3 ABG O2 Saturation ABG Base Excess ABG Hemoglobin Oxyhemoglobin Sodium Potassium Chloride Carbon Dioxide BUN Creatinine Glucose POC Glucose 122 H 122 H 134 H Lactic Acid Calcium Ionized Calcium Phosphorus Magnesium Total Bilirubin AST ALT Alkaline Phosphatase Ammonia Total Creatine Kinase CK-MB (CK-2) CK-MB (CK-2) Rel Index Total Protein Albumin Urine WBC (Auto) Vancomycin Trough Salicylates Acetaminophen Plasma/Serum Alcohol Crossmatch 01/30/20 01/31/20 01/31/20 17:59 00:52 05:54 WBC RBC Hgb Hct MCH RDW Plt Count Lymph % (Auto) [place] % (Auto) [place] # Baso # Seg Neutrophils % Seg Neuts % (Manual) Lymphocytes % (Manual) Monocytes % (Manual) Seg Neutrophils # Seg Neutrophils # Man Lymphocytes # (Manual) Monocytes # (Manual) Eosinophils # (Manual) Basophils # (Manual) PT INR APTT ABG pH ABG pO2 ABG HCO3 ABG O2 Saturation ABG Base Excess ABG Hemoglobin Oxyhemoglobin Sodium Potassium Chloride Carbon Dioxide BUN Creatinine Glucose POC Glucose 116 H 127 H 127 H Lactic Acid Calcium Ionized Calcium Phosphorus Magnesium Total Bilirubin AST ALT Alkaline Phosphatase Ammonia Total Creatine Kinase CK-MB (CK-2) CK-MB (CK-2) Rel Index Total Protein Albumin Urine WBC (Auto) Vancomycin Trough Salicylates Acetaminophen Plasma/Serum Alcohol Crossmatch 01/31/20 02/01/20 02/01/20 12:20 00:48 12:21 WBC RBC Hgb Hct MCH RDW Plt Count Lymph % (Auto) [place] % (Auto) [place] # Baso # Seg Neutrophils % Seg Neuts % (Manual) Lymphocytes % (Manual) Monocytes % (Manual) Seg Neutrophils # Seg Neutrophils # Man Lymphocytes # (Manual) Monocytes # (Manual) Eosinophils # (Manual) Basophils # (Manual) PT INR APTT ABG pH ABG pO2 ABG HCO3 ABG O2 Saturation ABG Base Excess ABG Hemoglobin Oxyhemoglobin Sodium Potassium Chloride Carbon Dioxide BUN Creatinine Glucose POC Glucose 126 H 154 H 123 H Lactic Acid Calcium Ionized Calcium Phosphorus Magnesium Total Bilirubin AST ALT Alkaline Phosphatase Ammonia Total Creatine Kinase CK-MB (CK-2) CK-MB (CK-2) Rel Index Total Protein Albumin Urine WBC (Auto) Vancomycin Trough Salicylates Acetaminophen Plasma/Serum Alcohol Crossmatch 02/01/20 02/02/20 02/02/20 23:58 06:08 11:50 WBC RBC Hgb Hct MCH RDW Plt Count Lymph % (Auto) [place] % (Auto) [place] # Baso # Seg Neutrophils % Seg Neuts % (Manual) Lymphocytes % (Manual) Monocytes % (Manual) Seg Neutrophils # Seg Neutrophils # Man Lymphocytes # (Manual) Monocytes # (Manual) Eosinophils # (Manual) Basophils # (Manual) PT INR APTT ABG pH ABG pO2 ABG HCO3 ABG O2 Saturation ABG Base Excess ABG Hemoglobin Oxyhemoglobin Sodium Potassium Chloride Carbon Dioxide BUN Creatinine Glucose POC Glucose 125 H 144 H 131 H Lactic Acid Calcium Ionized Calcium Phosphorus Magnesium Total Bilirubin AST ALT Alkaline Phosphatase Ammonia Total Creatine Kinase CK-MB (CK-2) CK-MB (CK-2) Rel Index Total Protein Albumin Urine WBC (Auto) Vancomycin Trough Salicylates Acetaminophen Plasma/Serum Alcohol Crossmatch 02/02/20 02/03/20 02/03/20 17:53 00:14 05:47 WBC RBC Hgb Hct MCH RDW Plt Count Lymph % (Auto) [place] % (Auto) [place] # Baso # Seg Neutrophils % Seg Neuts % (Manual) Lymphocytes % (Manual) Monocytes % (Manual) Seg Neutrophils # Seg Neutrophils # Man Lymphocytes # (Manual) Monocytes # (Manual) Eosinophils # (Manual) Basophils # (Manual) PT INR APTT ABG pH ABG pO2 ABG HCO3 ABG O2 Saturation ABG Base Excess ABG Hemoglobin Oxyhemoglobin Sodium Potassium Chloride Carbon Dioxide BUN Creatinine Glucose POC Glucose 108 H 122 H 118 H Lactic Acid Calcium Ionized Calcium Phosphorus Magnesium Total Bilirubin AST ALT Alkaline Phosphatase Ammonia Total Creatine Kinase CK-MB (CK-2) CK-MB (CK-2) Rel Index Total Protein Albumin Urine WBC (Auto) Vancomycin Trough Salicylates Acetaminophen Plasma/Serum Alcohol Crossmatch 02/03/20 02/03/20 02/03/20 05:59 05:59 11:49 WBC RBC 3.48 L Hgb Hct 29.9 L MCH RDW 16.2 H Plt Count 707 H Lymph % (Auto) [place] % (Auto) 9.3 H [place] # 0.9 H Baso # Seg Neutrophils % Seg Neuts % (Manual) Lymphocytes % (Manual) Monocytes % (Manual) Seg Neutrophils # Seg Neutrophils # Man Lymphocytes # (Manual) Monocytes # (Manual) Eosinophils # (Manual) Basophils # (Manual) PT INR APTT ABG pH ABG pO2 ABG HCO3 ABG O2 Saturation ABG Base Excess ABG Hemoglobin Oxyhemoglobin Sodium 136 L Potassium Chloride 93.4 L Carbon Dioxide BUN 20 H Creatinine 0.5 L Glucose 101 H POC Glucose 133 H Lactic Acid Calcium 10.8 H Ionized Calcium Phosphorus Magnesium Total Bilirubin AST ALT Alkaline Phosphatase Ammonia Total Creatine Kinase CK-MB (CK-2) CK-MB (CK-2) Rel Index Total Protein Albumin Urine WBC (Auto) Vancomycin Trough Salicylates Acetaminophen Plasma/Serum Alcohol Crossmatch 02/03/20 02/04/20 02/04/20 23:19 05:37 23:56 WBC RBC Hgb Hct MCH RDW Plt Count Lymph % (Auto) [place] % (Auto) [place] # Baso # Seg Neutrophils % Seg Neuts % (Manual) Lymphocytes % (Manual) Monocytes % (Manual) Seg Neutrophils # Seg Neutrophils # Man Lymphocytes # (Manual) Monocytes # (Manual) Eosinophils # (Manual) Basophils # (Manual) PT INR APTT ABG pH ABG pO2 ABG HCO3 ABG O2 Saturation ABG Base Excess ABG Hemoglobin Oxyhemoglobin Sodium Potassium Chloride Carbon Dioxide BUN Creatinine Glucose POC Glucose 135 H 108 H 158 H Lactic Acid Calcium Ionized Calcium Phosphorus Magnesium Total Bilirubin AST ALT Alkaline Phosphatase Ammonia Total Creatine Kinase CK-MB (CK-2) CK-MB (CK-2) Rel Index Total Protein Albumin Urine WBC (Auto) Vancomycin Trough Salicylates Acetaminophen Plasma/Serum Alcohol Crossmatch 02/05/20 02/05/20 02/06/20 05:33 23:24 05:50 WBC RBC Hgb Hct MCH RDW Plt Count Lymph % (Auto) [place] % (Auto) [place] # Baso # Seg Neutrophils % Seg Neuts % (Manual) Lymphocytes % (Manual) Monocytes % (Manual) Seg Neutrophils # Seg Neutrophils # Man Lymphocytes # (Manual) Monocytes # (Manual) Eosinophils # (Manual) Basophils # (Manual) PT INR APTT ABG pH ABG pO2 ABG HCO3 ABG O2 Saturation ABG Base Excess ABG Hemoglobin Oxyhemoglobin Sodium Potassium Chloride Carbon Dioxide BUN Creatinine Glucose POC Glucose 152 H 158 H 110 H Lactic Acid Calcium Ionized Calcium Phosphorus Magnesium Total Bilirubin AST ALT Alkaline Phosphatase Ammonia Total Creatine Kinase CK-MB (CK-2) CK-MB (CK-2) Rel Index Total Protein Albumin Urine WBC (Auto) Vancomycin Trough Salicylates Acetaminophen Plasma/Serum Alcohol Crossmatch 02/06/20 02/07/20 02/07/20 16:03 00:13 05:27 WBC RBC Hgb Hct MCH RDW Plt Count Lymph % (Auto) [place] % (Auto) [place] # Baso # Seg Neutrophils % Seg Neuts % (Manual) Lymphocytes % (Manual) Monocytes % (Manual) Seg Neutrophils # Seg Neutrophils # Man Lymphocytes # (Manual) Monocytes # (Manual) Eosinophils # (Manual) Basophils # (Manual) PT INR APTT ABG pH ABG pO2 ABG HCO3 ABG O2 Saturation ABG Base Excess ABG Hemoglobin Oxyhemoglobin Sodium Potassium Chloride Carbon Dioxide BUN Creatinine Glucose POC Glucose 130 H 115 H 115 H Lactic Acid Calcium Ionized Calcium Phosphorus Magnesium Total Bilirubin AST ALT Alkaline Phosphatase Ammonia Total Creatine Kinase CK-MB (CK-2) CK-MB (CK-2) Rel Index Total Protein Albumin Urine WBC (Auto) Vancomycin Trough Salicylates Acetaminophen Plasma/Serum Alcohol Crossmatch 02/07/20 02/07/20 02/08/20 11:42 17:23 00:37 WBC RBC Hgb Hct MCH RDW Plt Count Lymph % (Auto) [place] % (Auto) [place] # Baso # Seg Neutrophils % Seg Neuts % (Manual) Lymphocytes % (Manual) Monocytes % (Manual) Seg Neutrophils # Seg Neutrophils # Man Lymphocytes # (Manual) Monocytes # (Manual) Eosinophils # (Manual) Basophils # (Manual) PT INR APTT ABG pH ABG pO2 ABG HCO3 ABG O2 Saturation ABG Base Excess ABG Hemoglobin Oxyhemoglobin Sodium Potassium Chloride Carbon Dioxide BUN Creatinine Glucose POC Glucose 113 H 114 H 136 H Lactic Acid Calcium Ionized Calcium Phosphorus Magnesium Total Bilirubin AST ALT Alkaline Phosphatase Ammonia Total Creatine Kinase CK-MB (CK-2) CK-MB (CK-2) Rel Index Total Protein Albumin Urine WBC (Auto) Vancomycin Trough Salicylates Acetaminophen Plasma/Serum Alcohol Crossmatch 02/08/20 02/08/20 02/08/20 08:52 11:42 17:02 WBC RBC Hgb Hct MCH RDW Plt Count Lymph % (Auto) [place] % (Auto) [place] # Baso # Seg Neutrophils % Seg Neuts % (Manual) Lymphocytes % (Manual) Monocytes % (Manual) Seg Neutrophils # Seg Neutrophils # Man Lymphocytes # (Manual) Monocytes # (Manual) Eosinophils # (Manual) Basophils # (Manual) PT INR APTT ABG pH ABG pO2 ABG HCO3 ABG O2 Saturation ABG Base Excess ABG Hemoglobin Oxyhemoglobin Sodium 136 L Potassium Chloride 95.7 L Carbon Dioxide BUN 21 H Creatinine 0.4 L Glucose POC Glucose 128 H 145 H Lactic Acid Calcium 10.4 H Ionized Calcium Phosphorus Magnesium Total Bilirubin AST ALT Alkaline Phosphatase Ammonia Total Creatine Kinase CK-MB (CK-2) CK-MB (CK-2) Rel Index Total Protein Albumin Urine WBC (Auto) Vancomycin Trough Salicylates Acetaminophen Plasma/Serum Alcohol Crossmatch 02/09/20 02/09/20 02/09/20 01:05 11:52 16:19 WBC RBC Hgb Hct MCH RDW Plt Count Lymph % (Auto) [place] % (Auto) [place] # Baso # Seg Neutrophils % Seg Neuts % (Manual) Lymphocytes % (Manual) Monocytes % (Manual) Seg Neutrophils # Seg Neutrophils # Man Lymphocytes # (Manual) Monocytes # (Manual) Eosinophils # (Manual) Basophils # (Manual) PT INR APTT ABG pH ABG pO2 ABG HCO3 ABG O2 Saturation ABG Base Excess ABG Hemoglobin Oxyhemoglobin Sodium Potassium Chloride Carbon Dioxide BUN Creatinine Glucose POC Glucose 117 H 141 H 113 H Lactic Acid Calcium Ionized Calcium Phosphorus Magnesium Total Bilirubin AST ALT Alkaline Phosphatase Ammonia Total Creatine Kinase CK-MB (CK-2) CK-MB (CK-2) Rel Index Total Protein Albumin Urine WBC (Auto) Vancomycin Trough Salicylates Acetaminophen Plasma/Serum Alcohol Crossmatch 02/10/20 02/10/20 02/10/20 05:25 12:50 17:08 WBC RBC Hgb Hct MCH RDW Plt Count Lymph % (Auto) [place] % (Auto) [place] # Baso # Seg Neutrophils % Seg Neuts % (Manual) Lymphocytes % (Manual) Monocytes % (Manual) Seg Neutrophils # Seg Neutrophils # Man Lymphocytes # (Manual) Monocytes # (Manual) Eosinophils # (Manual) Basophils # (Manual) PT INR APTT ABG pH ABG pO2 ABG HCO3 ABG O2 Saturation ABG Base Excess ABG Hemoglobin Oxyhemoglobin Sodium Potassium Chloride Carbon Dioxide BUN Creatinine Glucose POC Glucose 136 H 127 H 111 H Lactic Acid Calcium Ionized Calcium Phosphorus Magnesium Total Bilirubin AST ALT Alkaline Phosphatase Ammonia Total Creatine Kinase CK-MB (CK-2) CK-MB (CK-2) Rel Index Total Protein Albumin Urine WBC (Auto) Vancomycin Trough Salicylates Acetaminophen Plasma/Serum Alcohol Crossmatch 02/10/20 02/11/20 02/11/20 23:55 06:11 12:07 WBC RBC Hgb Hct MCH RDW Plt Count Lymph % (Auto) [place] % (Auto) [place] # Baso # Seg Neutrophils % Seg Neuts % (Manual) Lymphocytes % (Manual) Monocytes % (Manual) Seg Neutrophils # Seg Neutrophils # Man Lymphocytes # (Manual) Monocytes # (Manual) Eosinophils # (Manual) Basophils # (Manual) PT INR APTT ABG pH ABG pO2 ABG HCO3 ABG O2 Saturation ABG Base Excess ABG Hemoglobin Oxyhemoglobin Sodium Potassium Chloride Carbon Dioxide BUN Creatinine Glucose POC Glucose 129 H 128 H 141 H Lactic Acid Calcium Ionized Calcium Phosphorus Magnesium Total Bilirubin AST ALT Alkaline Phosphatase Ammonia Total Creatine Kinase CK-MB (CK-2) CK-MB (CK-2) Rel Index Total Protein Albumin Urine WBC (Auto) Vancomycin Trough Salicylates Acetaminophen Plasma/Serum Alcohol Crossmatch 02/11/20 02/12/20 02/13/20 18:22 02:39 06:45 WBC RBC Hgb Hct MCH RDW Plt Count Lymph % (Auto) [place] % (Auto) [place] # Baso # Seg Neutrophils % Seg Neuts % (Manual) Lymphocytes % (Manual) Monocytes % (Manual) Seg Neutrophils # Seg Neutrophils # Man Lymphocytes # (Manual) Monocytes # (Manual) Eosinophils # (Manual) Basophils # (Manual) PT INR APTT ABG pH ABG pO2 ABG HCO3 ABG O2 Saturation ABG Base Excess ABG Hemoglobin Oxyhemoglobin Sodium Potassium Chloride Carbon Dioxide BUN Creatinine Glucose POC Glucose 118 H 107 H 124 H Lactic Acid Calcium Ionized Calcium Phosphorus Magnesium Total Bilirubin AST ALT Alkaline Phosphatase Ammonia Total Creatine Kinase CK-MB (CK-2) CK-MB (CK-2) Rel Index Total Protein Albumin Urine WBC (Auto) Vancomycin Trough Salicylates Acetaminophen Plasma/Serum Alcohol Crossmatch Allied health notes reviewed: RT
[2020-02-13] MEDS: ACETAMINOPHEN 325 MG/10.15 ML ORAL LIQD UNIT DOSE FEEDTUBE PRN (22:01)
[2020-02-13] MEDS: QUEtiapine 100 MG TAB FEEDTUBE SCH (22:02)
[2020-02-14] MEDS: LEVALBUTEROL 0.63 MG/3 ML NEBU IH SCH ×4 (03:04→21:06)
--- NOTE | 2020-02-14 07:07 | Progress Note ---
Assessment and Plan Acute cardiopulmonary arrest with ROSC Acute hypoxemic respiratory failure s/p MVS s/p Tracheostomy Oropharyngeal dysphagia s/p PEG MRSA Bacteremia- treated MRSA pneumonia-treated Acute [id number] encephalopathy Metabolic acidosis/alcoholic acidosis/Lactic acidosis( resolved) Ischemic hepatitis Erythrocytosis Tobacco use disorder Alcohol use Disorder Continue all current care as documented below Continue all supportive care Fall precautions, remains impulsive Discharge planning -CBC, BMP prn -Replace and correct electrolytes as indicated -Trach care, airway clearance, secretion management(continue scopolamine patch and Robinul) -CXR, ABG prn -Weaning trials as tolerated- PMV and capping as tolerated -Continue contact isolation for MRSA -Trend WCC and temperature curve -PT/OT -Supportive transfusions as indicated for HgB <7g/dL -Continue aspiration precautions, HOB>40 -Continue enteric nutritional support at goal rate. -Continue to monitor glycemic control, with target blood glucose 140-180 mg/dL while critically ill. -Avoid hypoglycemia - Continue to wean supplemental oxygen for target O2 sat's > 90% -Continue thiamine, multivitamin and electrolyte replacement -Continue to avoid nephrotoxins, adjust all medications for GFR and CrCL - Continue bronchodilators with pulmonary hygiene - Continue to maintain of sleep-wake cycle, avoid delirium - Continue mobility protocol and skin assessment per protocol for pressure ulcer prevention - Continue to monitor for clinical seizures - continue other care per attending / other consultants CONDITION: FAIR PROGNOSIS: FAIR CODE STATUS: DNAR Subjective Date of service: 02/14/20 Principal diagnosis: Ac cardiopulmonary arrest; Ac hypoxemic resp failure; Acute encephalopathy Interval history: Patient is seen today for: Acute cardiopulmonary arrest with ROSC; Acute hypoxemic respiratory failure; Acute metabolic-toxic encephalopathy; Ischemic hepatitis; Leucocytosis with lactic acidosis; Tobacco use disorder; Alcohol use Disorder; s/p tracheostomy; s/p PEG Seen and examined at bedside; 24hour events reviewed; nursing and respiratory care staff consulted; no adverse overnight events reported to me; resting peacefully in bed; continues to tolerate PMV/capping trials, No fevers, no vomiting, continues to tolerate tube feedings Awake and alert, responsive No new issues Objective Vital Signs - 12hr 02/13/20 02/13/20 02/13/20 20:35 20:41 20:46 Temperature Pulse Rate Pulse Rate [ 97 H Anterior Bilateral Throughout] Pulse Rate [ 120 H From Monitor] Pulse Rate [ 104 H Posterior Bilateral Throughout] Respiratory 24 Rate Respiratory Rate [Anterior Bilateral Throughout] Respiratory 22 Rate [Posterior Bilateral Throughout] Blood Pressure O2 Sat by Pulse 98 Oximetry O2 Sat by Pulse Oximetry [ Assessment] 02/13/20 02/13/20 02/13/20 22:00 22:12 22:15 Temperature 98.9 F Pulse Rate 115 H 79 Pulse Rate [ Anterior Bilateral Throughout] Pulse Rate [ From Monitor] Pulse Rate [ Posterior Bilateral Throughout] Respiratory 20 Rate Respiratory Rate [Anterior Bilateral Throughout] Respiratory Rate [Posterior Bilateral Throughout] Blood Pressure 109/87 O2 Sat by Pulse 98 Oximetry O2 Sat by Pulse Oximetry [ Assessment] 02/14/20 02/14/20 02/14/20 00:11 00:50 03:05 Temperature 97.6 F Pulse Rate 102 H Pulse Rate [ 109 H Anterior Bilateral Throughout] Pulse Rate [ From Monitor] Pulse Rate [ 118 H Posterior Bilateral Throughout] Respiratory 18 Rate Respiratory 20 Rate [Anterior Bilateral Throughout] Respiratory 20 Rate [Posterior Bilateral Throughout] Blood Pressure 122/72 O2 Sat by Pulse 97 Oximetry O2 Sat by Pulse 100 Oximetry [ Assessment] 02/14/20 05:07 Temperature 98.4 F Pulse Rate 104 H Pulse Rate [ Anterior Bilateral Throughout] Pulse Rate [ From Monitor] Pulse Rate [ Posterior Bilateral Throughout] Respiratory 20 Rate Respiratory Rate [Anterior Bilateral Throughout] Respiratory Rate [Posterior Bilateral Throughout] Blood Pressure 122/69 O2 Sat by Pulse 97 Oximetry O2 Sat by Pulse Oximetry [ Assessment] Constitutional: no acute distress, other (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, with midline tracheostomy and with normal respiratory effort at rest) Eyes: non-icteric ENT: oropharynx moist, other (s/p trach) Neck: supple, no lymphadenopathy, no JVD Effort: normal Ascultation: Bilateral: diminished breath sounds, rhonchi Percussion: Bilateral: not dull Cardiovascular: regular rate and rhythm (tachycardia), other (S1,S2) Gastrointestinal: normoactive bowel sounds, soft, non-tender, non-distended Integumentary: normal Extremities: no cyanosis, no edema, pulses normal, no ischemia or petechiae Neurologic: normal mental status, non-focal exam, pupils equal and round Psychiatric: mood appropriate, affect normal CBC and BMP: 02/08/20 07:55 02/08/20 08:52 ABG, PT/INR, D-dimer: ABG ABG pH 7.429 pH Units (7.350-7.450) 01/09/20 08:51 ABG pCO2 39.1 mm Hg 01/09/20 08:51 ABG pO2 94.3 mm Hg (80.0-90.0) H 01/09/20 08:51 ABG O2 Saturation 97.4 % (95.0-99.0) 01/09/20 08:51 PT/INR, D-dimer PT 17.0 Sec. (12.2-14.9) H 11/23/19 03:47 INR 1.36 (0.87-1.13) H 11/23/19 03:47 Abnormal lab findings: Abnormal Labs 11/22/19 11/22/19 11/22/19 23:17 23:18 23:27 WBC 21.2 H RBC 3.59 L Hgb 9.8 L Hct MCH 27 L RDW 18.6 H Plt Count 454 H Lymph % (Auto) [place] % (Auto) [place] # Baso # Seg Neutrophils % Seg Neuts % (Manual) 86.0 H Lymphocytes % (Manual) 9.0 L Monocytes % (Manual) Seg Neutrophils # Seg Neutrophils # Man 18.2 H Lymphocytes # (Manual) Monocytes # (Manual) 1.1 H Eosinophils # (Manual) Basophils # (Manual) PT INR APTT ABG pH ABG pO2 ABG HCO3 ABG O2 Saturation ABG Base Excess ABG Hemoglobin Oxyhemoglobin Sodium Potassium Chloride Carbon Dioxide BUN Creatinine Glucose POC Glucose 53 L Lactic Acid Calcium Ionized Calcium Phosphorus Magnesium Total Bilirubin AST ALT Alkaline Phosphatase Ammonia Total Creatine Kinase CK-MB (CK-2) CK-MB (CK-2) Rel Index Total Protein Albumin Urine WBC (Auto) 40.0 H Vancomycin Trough Salicylates Acetaminophen Plasma/Serum Alcohol Crossmatch 11/22/19 11/22/19 11/22/19 23:27 23:27 23:27 WBC RBC Hgb Hct MCH RDW Plt Count Lymph % (Auto) [place] % (Auto) [place] # Baso # Seg Neutrophils % Seg Neuts % (Manual) Lymphocytes % (Manual) Monocytes % (Manual) Seg Neutrophils # Seg Neutrophils # Man Lymphocytes # (Manual) Monocytes # (Manual) Eosinophils # (Manual) Basophils # (Manual) PT INR APTT ABG pH ABG pO2 ABG HCO3 ABG O2 Saturation ABG Base Excess ABG Hemoglobin Oxyhemoglobin Sodium Potassium 2.4 L* Chloride 85.1 L Carbon Dioxide 19 L BUN Creatinine 0.5 L Glucose 261 H POC Glucose Lactic Acid Calcium Ionized Calcium Phosphorus Magnesium Total Bilirubin AST 609 H ALT 152 H Alkaline Phosphatase 160 H Ammonia 117.0 H Total Creatine Kinase 139 H CK-MB (CK-2) 8.3 H CK-MB (CK-2) Rel Index 5.9 H Total Protein Albumin 3.6 L Urine WBC (Auto) Vancomycin Trough Salicylates < 0.3 L Acetaminophen Plasma/Serum Alcohol Crossmatch 11/22/19 11/22/19 11/23/19 23:27 23:27 01:10 WBC RBC Hgb Hct MCH RDW Plt Count Lymph % (Auto) [place] % (Auto) [place] # Baso # Seg Neutrophils % Seg Neuts % (Manual) Lymphocytes % (Manual) Monocytes % (Manual) Seg Neutrophils # Seg Neutrophils # Man Lymphocytes # (Manual) Monocytes # (Manual) Eosinophils # (Manual) Basophils # (Manual) PT INR APTT ABG pH 7.273 L ABG pO2 209.7 H ABG HCO3 ABG O2 Saturation 99.2 H ABG Base Excess -3.9 L ABG Hemoglobin 10.6 L Oxyhemoglobin 93.9 L Sodium Potassium Chloride Carbon Dioxide BUN Creatinine Glucose POC Glucose Lactic Acid Calcium Ionized Calcium Phosphorus Magnesium Total Bilirubin AST ALT Alkaline Phosphatase Ammonia Total Creatine Kinase CK-MB (CK-2) CK-MB (CK-2) Rel Index Total Protein Albumin Urine WBC (Auto) Vancomycin Trough Salicylates Acetaminophen < 5.0 L Plasma/Serum Alcohol 0.08 H Crossmatch 11/23/19 11/23/19 11/23/19 01:19 01:19 03:47 WBC RBC Hgb Hct MCH RDW Plt Count Lymph % (Auto) [place] % (Auto) [place] # Baso # Seg Neutrophils % Seg Neuts % (Manual) Lymphocytes % (Manual) Monocytes % (Manual) Seg Neutrophils # Seg Neutrophils # Man Lymphocytes # (Manual) Monocytes # (Manual) Eosinophils # (Manual) Basophils # (Manual) PT 16.3 H INR 1.29 H APTT ABG pH ABG pO2 ABG HCO3 ABG O2 Saturation ABG Base Excess ABG Hemoglobin Oxyhemoglobin Sodium Potassium Chloride Carbon Dioxide BUN Creatinine Glucose POC Glucose Lactic Acid 2.10 H* 5.00 H* Calcium Ionized Calcium Phosphorus Magnesium Total Bilirubin AST ALT Alkaline Phosphatase Ammonia Total Creatine Kinase CK-MB (CK-2) CK-MB (CK-2) Rel Index Total Protein Albumin Urine WBC (Auto) Vancomycin Trough Salicylates Acetaminophen Plasma/Serum Alcohol Crossmatch 11/23/19 11/23/19 11/23/19 03:47 03:47 04:53 WBC RBC Hgb 9.4 L Hct MCH RDW Plt Count Lymph % (Auto) [place] % (Auto) [place] # Baso # Seg Neutrophils % Seg Neuts % (Manual) Lymphocytes % (Manual) Monocytes % (Manual) Seg Neutrophils # Seg Neutrophils # Man Lymphocytes # (Manual) Monocytes # (Manual) Eosinophils # (Manual) Basophils # (Manual) PT 17.0 H INR 1.36 H APTT 128.2 H* ABG pH ABG pO2 ABG HCO3 ABG O2 Saturation ABG Base Excess ABG Hemoglobin Oxyhemoglobin Sodium Potassium Chloride Carbon Dioxide 18 L BUN Creatinine 0.5 L Glucose 105 H POC Glucose Lactic Acid Calcium 8.3 L Ionized Calcium Phosphorus 2.40 L Magnesium Total Bilirubin 1.30 H AST 761 H ALT 158 H Alkaline Phosphatase 143 H Ammonia Total Creatine Kinase CK-MB (CK-2) CK-MB (CK-2) Rel Index Total Protein Albumin 2.8 L Urine WBC (Auto) Vancomycin Trough Salicylates Acetaminophen Plasma/Serum Alcohol Crossmatch 11/23/19 11/23/19 11/23/19 05:12 06:32 06:32 WBC 16.8 H RBC 3.31 L Hgb 8.9 L Hct 28.7 L MCH 27 L RDW 18.6 H Plt Count Lymph % (Auto) [place] % (Auto) [place] # Baso # Seg Neutrophils % Seg Neuts % (Manual) 94.0 H Lymphocytes % (Manual) 1.0 L Monocytes % (Manual) Seg Neutrophils # Seg Neutrophils # Man 15.8 H Lymphocytes # (Manual) 0.2 L Monocytes # (Manual) Eosinophils # (Manual) Basophils # (Manual) PT INR APTT ABG pH ABG pO2 ABG HCO3 ABG O2 Saturation ABG Base Excess -3.2 L ABG Hemoglobin 9.0 L Oxyhemoglobin 93.6 L Sodium Potassium Chloride Carbon Dioxide BUN Creatinine Glucose POC Glucose Lactic Acid Calcium Ionized Calcium 4.5 L Phosphorus Magnesium Total Bilirubin AST ALT Alkaline Phosphatase Ammonia Total Creatine Kinase CK-MB (CK-2) CK-MB (CK-2) Rel Index Total Protein Albumin Urine WBC (Auto) Vancomycin Trough Salicylates Acetaminophen Plasma/Serum Alcohol Crossmatch 11/23/19 11/24/19 11/24/19 06:32 04:35 04:35 WBC RBC Hgb Hct MCH RDW Plt Count Lymph % (Auto) [place] % (Auto) [place] # Baso # Seg Neutrophils % Seg Neuts % (Manual) Lymphocytes % (Manual) Monocytes % (Manual) Seg Neutrophils # Seg Neutrophils # Man Lymphocytes # (Manual) Monocytes # (Manual) Eosinophils # (Manual) Basophils # (Manual) PT INR APTT ABG pH ABG pO2 ABG HCO3 ABG O2 Saturation ABG Base Excess ABG Hemoglobin Oxyhemoglobin Sodium Potassium Chloride Carbon Dioxide BUN Creatinine Glucose POC Glucose Lactic Acid 3.30 H* Calcium Ionized Calcium Phosphorus Magnesium 1.40 L Total Bilirubin AST ALT Alkaline Phosphatase Ammonia 98.0 H Total Creatine Kinase CK-MB (CK-2) CK-MB (CK-2) Rel Index Total Protein Albumin Urine WBC (Auto) Vancomycin Trough Salicylates Acetaminophen Plasma/Serum Alcohol Crossmatch 11/24/19 11/25/19 11/25/19 05:22 04:34 05:05 WBC 17.3 H RBC 2.88 L Hgb 7.8 L Hct 24.6 L MCH 27 L RDW 18.5 H Plt Count Lymph % (Auto) 7.7 L [place] % (Auto) 9.7 H [place] # 1.7 H Baso # Seg Neutrophils % 82.2 H Seg Neuts % (Manual) Lymphocytes % (Manual) Monocytes % (Manual) Seg Neutrophils # 14.2 H Seg Neutrophils # Man Lymphocytes # (Manual) Monocytes # (Manual) Eosinophils # (Manual) Basophils # (Manual) PT INR APTT ABG pH 7.475 H ABG pO2 ABG HCO3 29.4 H 32.3 H ABG O2 Saturation ABG Base Excess 5.4 H 6.9 H ABG Hemoglobin 9.0 L 10.6 L Oxyhemoglobin 94.3 L Sodium Potassium Chloride Carbon Dioxide BUN Creatinine Glucose POC Glucose Lactic Acid Calcium Ionized Calcium Phosphorus Magnesium Total Bilirubin AST ALT Alkaline Phosphatase Ammonia Total Creatine Kinase CK-MB (CK-2) CK-MB (CK-2) Rel Index Total Protein Albumin Urine WBC (Auto) Vancomycin Trough Salicylates Acetaminophen Plasma/Serum Alcohol Crossmatch 11/25/19 11/25/19 11/26/19 05:05 22:46 03:31 WBC RBC Hgb Hct MCH RDW Plt Count Lymph % (Auto) [place] % (Auto) [place] # Baso # Seg Neutrophils % Seg Neuts % (Manual) Lymphocytes % (Manual) Monocytes % (Manual) Seg Neutrophils # Seg Neutrophils # Man Lymphocytes # (Manual) Monocytes # (Manual) Eosinophils # (Manual) Basophils # (Manual) PT INR APTT ABG pH 7.459 H ABG pO2 ABG HCO3 34.2 H ABG O2 Saturation ABG Base Excess 9.4 H ABG Hemoglobin 7.6 L Oxyhemoglobin 94.8 L Sodium 152 H D 147 H Potassium 2.3 L* D 2.8 L* D Chloride 107.8 H Carbon Dioxide 31 H D 33 H BUN Creatinine 0.6 L 0.6 L Glucose 148 H 177 H POC Glucose Lactic Acid Calcium Ionized Calcium Phosphorus Magnesium Total Bilirubin AST 105 H ALT 71 H Alkaline Phosphatase 155 H Ammonia Total Creatine Kinase CK-MB (CK-2) CK-MB (CK-2) Rel Index Total Protein 5.2 L D Albumin 2.9 L Urine WBC (Auto) Vancomycin Trough Salicylates Acetaminophen Plasma/Serum Alcohol Crossmatch 11/26/19 11/26/19 11/27/19 08:24 08:24 04:20 WBC 12.0 H RBC 3.00 L Hgb 8.0 L 9.3 L Hct 25.9 L 29.7 L MCH 27 L RDW 18.5 H Plt Count Lymph % (Auto) [place] % (Auto) [place] # Baso # Seg Neutrophils % Seg Neuts % (Manual) 89.0 H Lymphocytes % (Manual) 4.0 L Monocytes % (Manual) Seg Neutrophils # Seg Neutrophils # Man 10.7 H Lymphocytes # (Manual) 0.5 L Monocytes # (Manual) Eosinophils # (Manual) Basophils # (Manual) PT INR APTT ABG pH ABG pO2 ABG HCO3 ABG O2 Saturation ABG Base Excess ABG Hemoglobin Oxyhemoglobin Sodium 146 H Potassium 3.4 L D Chloride Carbon Dioxide BUN Creatinine 0.5 L Glucose 165 H POC Glucose Lactic Acid Calcium Ionized Calcium Phosphorus Magnesium Total Bilirubin AST 57 H ALT Alkaline Phosphatase 166 H Ammonia Total Creatine Kinase CK-MB (CK-2) CK-MB (CK-2) Rel Index Total Protein Albumin 2.9 L Urine WBC (Auto) Vancomycin Trough Salicylates Acetaminophen Plasma/Serum Alcohol Crossmatch 11/27/19 11/27/19 11/27/19 04:28 04:28 04:42 WBC RBC Hgb Hct MCH RDW Plt Count Lymph % (Auto) [place] % (Auto) [place] # Baso # Seg Neutrophils % Seg Neuts % (Manual) Lymphocytes % (Manual) Monocytes % (Manual) Seg Neutrophils # Seg Neutrophils # Man Lymphocytes # (Manual) Monocytes # (Manual) Eosinophils # (Manual) Basophils # (Manual) PT INR APTT ABG pH 7.470 H ABG pO2 74.0 L ABG HCO3 33.8 H ABG O2 Saturation ABG Base Excess 9.1 H ABG Hemoglobin 8.7 L Oxyhemoglobin 94.7 L Sodium 146 H Potassium 2.9 L* Chloride Carbon Dioxide BUN 25 H Creatinine Glucose 213 H POC Glucose Lactic Acid Calcium Ionized Calcium Phosphorus 1.00 L Magnesium Total Bilirubin AST ALT Alkaline Phosphatase Ammonia Total Creatine Kinase CK-MB (CK-2) CK-MB (CK-2) Rel Index Total Protein Albumin Urine WBC (Auto) Vancomycin Trough Salicylates Acetaminophen Plasma/Serum Alcohol Crossmatch 11/27/19 11/27/19 11/27/19 05:37 12:20 15:46 WBC RBC Hgb Hct MCH RDW Plt Count Lymph % (Auto) [place] % (Auto) [place] # Baso # Seg Neutrophils % Seg Neuts % (Manual) Lymphocytes % (Manual) Monocytes % (Manual) Seg Neutrophils # Seg Neutrophils # Man Lymphocytes # (Manual) Monocytes # (Manual) Eosinophils # (Manual) Basophils # (Manual) PT INR APTT ABG pH ABG pO2 ABG HCO3 ABG O2 Saturation ABG Base Excess ABG Hemoglobin Oxyhemoglobin Sodium 146 H Potassium 3.5 L D Chloride Carbon Dioxide BUN 24 H Creatinine 0.6 L Glucose 187 H POC Glucose 117 H 220 H Lactic Acid Calcium Ionized Calcium Phosphorus Magnesium Total Bilirubin AST ALT Alkaline Phosphatase Ammonia Total Creatine Kinase CK-MB (CK-2) CK-MB (CK-2) Rel Index Total Protein Albumin Urine WBC (Auto) Vancomycin Trough Salicylates Acetaminophen Plasma/Serum Alcohol Crossmatch 11/27/19 11/28/19 11/28/19 17:28 05:00 05:02 WBC RBC Hgb Hct MCH RDW Plt Count Lymph % (Auto) [place] % (Auto) [place] # Baso # Seg Neutrophils % Seg Neuts % (Manual) Lymphocytes % (Manual) Monocytes % (Manual) Seg Neutrophils # Seg Neutrophils # Man Lymphocytes # (Manual) Monocytes # (Manual) Eosinophils # (Manual) Basophils # (Manual) PT INR APTT ABG pH ABG pO2 72.4 L ABG HCO3 33.6 H ABG O2 Saturation 94.1 L ABG Base Excess 7.3 H ABG Hemoglobin Oxyhemoglobin 91.8 L Sodium 146 H Potassium 3.3 L Chloride Carbon Dioxide BUN 25 H Creatinine 0.6 L Glucose 176 H POC Glucose 198 H Lactic Acid Calcium Ionized Calcium Phosphorus Magnesium Total Bilirubin AST ALT Alkaline Phosphatase Ammonia Total Creatine Kinase CK-MB (CK-2) CK-MB (CK-2) Rel Index Total Protein Albumin Urine WBC (Auto) Vancomycin Trough Salicylates Acetaminophen Plasma/Serum Alcohol Crossmatch 11/28/19 11/28/19 11/29/19 05:02 18:55 10:43 WBC 15.2 H 19.0 H RBC 3.06 L 3.01 L Hgb 8.3 L 8.3 L Hct 27.0 L 26.4 L MCH 27 L RDW 19.0 H 19.7 H Plt Count 479 H 611 H Lymph % (Auto) [place] % (Auto) [place] # Baso # Seg Neutrophils % Seg Neuts % (Manual) 92.0 H Lymphocytes % (Manual) 2.0 L Monocytes % (Manual) Seg Neutrophils # Seg Neutrophils # Man 14.0 H Lymphocytes # (Manual) 0.3 L Monocytes # (Manual) Eosinophils # (Manual) Basophils # (Manual) PT INR APTT ABG pH ABG pO2 ABG HCO3 ABG O2 Saturation ABG Base Excess ABG Hemoglobin Oxyhemoglobin Sodium Potassium Chloride Carbon Dioxide BUN Creatinine Glucose POC Glucose 138 H Lactic Acid Calcium Ionized Calcium Phosphorus Magnesium Total Bilirubin AST ALT Alkaline Phosphatase Ammonia Total Creatine Kinase CK-MB (CK-2) CK-MB (CK-2) Rel Index Total Protein Albumin Urine WBC (Auto) Vancomycin Trough Salicylates Acetaminophen Plasma/Serum Alcohol Crossmatch 11/29/19 11/29/19 11/29/19 10:43 12:27 19:25 WBC RBC Hgb Hct MCH RDW Plt Count Lymph % (Auto) [place] % (Auto) [place] # Baso # Seg Neutrophils % Seg Neuts % (Manual) Lymphocytes % (Manual) Monocytes % (Manual) Seg Neutrophils # Seg Neutrophils # Man Lymphocytes # (Manual) Monocytes # (Manual) Eosinophils # (Manual) Basophils # (Manual) PT INR APTT ABG pH ABG pO2 ABG HCO3 ABG O2 Saturation ABG Base Excess ABG Hemoglobin Oxyhemoglobin Sodium Potassium 2.8 L* Chloride Carbon Dioxide BUN 20 H Creatinine 0.5 L Glucose 121 H POC Glucose 128 H 120 H Lactic Acid Calcium Ionized Calcium Phosphorus Magnesium Total Bilirubin AST ALT Alkaline Phosphatase Ammonia Total Creatine Kinase CK-MB (CK-2) CK-MB (CK-2) Rel Index Total Protein Albumin Urine WBC (Auto) Vancomycin Trough Salicylates Acetaminophen Plasma/Serum Alcohol Crossmatch 11/29/19 11/30/19 11/30/19 23:46 04:10 05:02 WBC RBC Hgb Hct MCH RDW Plt Count Lymph % (Auto) [place] % (Auto) [place] # Baso # Seg Neutrophils % Seg Neuts % (Manual) Lymphocytes % (Manual) Monocytes % (Manual) Seg Neutrophils # Seg Neutrophils # Man Lymphocytes # (Manual) Monocytes # (Manual) Eosinophils # (Manual) Basophils # (Manual) PT INR APTT ABG pH ABG pO2 76.3 L ABG HCO3 32.5 H ABG O2 Saturation ABG Base Excess 6.9 H ABG Hemoglobin 8.0 L Oxyhemoglobin 92.6 L Sodium Potassium Chloride Carbon Dioxide BUN Creatinine Glucose POC Glucose 116 H 128 H Lactic Acid Calcium Ionized Calcium Phosphorus Magnesium Total Bilirubin AST ALT Alkaline Phosphatase Ammonia Total Creatine Kinase CK-MB (CK-2) CK-MB (CK-2) Rel Index Total Protein Albumin Urine WBC (Auto) Vancomycin Trough Salicylates Acetaminophen Plasma/Serum Alcohol Crossmatch 11/30/19 11/30/19 11/30/19 05:25 05:25 12:59 WBC 18.4 H RBC 3.10 L Hgb 8.5 L Hct 27.5 L MCH 27 L RDW 20.9 H Plt Count 691 H Lymph % (Auto) 7.1 L [place] % (Auto) 7.7 H [place] # 1.4 H Baso # Seg Neutrophils % 83.4 H Seg Neuts % (Manual) Lymphocytes % (Manual) Monocytes % (Manual) Seg Neutrophils # 15.4 H Seg Neutrophils # Man Lymphocytes # (Manual) Monocytes # (Manual) Eosinophils # (Manual) Basophils # (Manual) PT INR APTT ABG pH ABG pO2 ABG HCO3 ABG O2 Saturation ABG Base Excess ABG Hemoglobin Oxyhemoglobin Sodium 146 H Potassium Chloride 107.2 H Carbon Dioxide BUN Creatinine 0.5 L Glucose 132 H POC Glucose 124 H Lactic Acid Calcium Ionized Calcium Phosphorus Magnesium Total Bilirubin AST 246 H ALT 274 H Alkaline Phosphatase 203 H Ammonia Total Creatine Kinase CK-MB (CK-2) CK-MB (CK-2) Rel Index Total Protein 5.4 L Albumin 2.9 L Urine WBC (Auto) Vancomycin Trough Salicylates Acetaminophen Plasma/Serum Alcohol Crossmatch 11/30/19 12/01/19 12/01/19 17:53 00:05 05:10 WBC RBC Hgb Hct MCH RDW Plt Count Lymph % (Auto) [place] % (Auto) [place] # Baso # Seg Neutrophils % Seg Neuts % (Manual) Lymphocytes % (Manual) Monocytes % (Manual) Seg Neutrophils # Seg Neutrophils # Man Lymphocytes # (Manual) Monocytes # (Manual) Eosinophils # (Manual) Basophils # (Manual) PT INR APTT ABG pH ABG pO2 ABG HCO3 ABG O2 Saturation ABG Base Excess ABG Hemoglobin Oxyhemoglobin Sodium Potassium Chloride Carbon Dioxide BUN Creatinine Glucose POC Glucose 113 H 143 H 145 H Lactic Acid Calcium Ionized Calcium Phosphorus Magnesium Total Bilirubin AST ALT Alkaline Phosphatase Ammonia Total Creatine Kinase CK-MB (CK-2) CK-MB (CK-2) Rel Index Total Protein Albumin Urine WBC (Auto) Vancomycin Trough Salicylates Acetaminophen Plasma/Serum Alcohol Crossmatch 12/01/19 12/01/19 12/01/19 05:33 08:23 08:23 WBC 22.7 H RBC 2.88 L Hgb 7.9 L Hct 25.2 L MCH 27 L RDW 21.0 H Plt Count 732 H Lymph % (Auto) [place] % (Auto) [place] # Baso # Seg Neutrophils % Seg Neuts % (Manual) 91.0 H Lymphocytes % (Manual) 3.0 L Monocytes % (Manual) Seg Neutrophils # Seg Neutrophils # Man 20.7 H Lymphocytes # (Manual) 0.7 L Monocytes # (Manual) 1.1 H Eosinophils # (Manual) Basophils # (Manual) PT INR APTT ABG pH ABG pO2 68.6 L ABG HCO3 34.1 H ABG O2 Saturation ABG Base Excess 9.0 H ABG Hemoglobin 6.5 L Oxyhemoglobin 94.7 L Sodium Potassium Chloride Carbon Dioxide BUN Creatinine 0.5 L Glucose 125 H POC Glucose Lactic Acid Calcium Ionized Calcium Phosphorus Magnesium Total Bilirubin AST ALT Alkaline Phosphatase Ammonia Total Creatine Kinase CK-MB (CK-2) CK-MB (CK-2) Rel Index Total Protein Albumin Urine WBC (Auto) Vancomycin Trough Salicylates Acetaminophen Plasma/Serum Alcohol Crossmatch 12/01/19 12/01/19 12/01/19 13:21 17:54 20:59 WBC RBC Hgb Hct MCH RDW Plt Count Lymph % (Auto) [place] % (Auto) [place] # Baso # Seg Neutrophils % Seg Neuts % (Manual) Lymphocytes % (Manual) Monocytes % (Manual) Seg Neutrophils # Seg Neutrophils # Man Lymphocytes # (Manual) Monocytes # (Manual) Eosinophils # (Manual) Basophils # (Manual) PT INR APTT ABG pH ABG pO2 78.3 L ABG HCO3 33.8 H ABG O2 Saturation 94.9 L ABG Base Excess 7.9 H ABG Hemoglobin 11.5 L Oxyhemoglobin 92.3 L Sodium Potassium Chloride Carbon Dioxide BUN Creatinine Glucose POC Glucose 111 H 115 H Lactic Acid Calcium Ionized Calcium Phosphorus Magnesium Total Bilirubin AST ALT Alkaline Phosphatase Ammonia Total Creatine Kinase CK-MB (CK-2) CK-MB (CK-2) Rel Index Total Protein Albumin Urine WBC (Auto) Vancomycin Trough Salicylates Acetaminophen Plasma/Serum Alcohol Crossmatch 12/02/19 12/03/19 12/04/19 12:55 20:00 04:26 WBC 15.2 H RBC 2.69 L Hgb 7.4 L Hct 23.6 L MCH 27 L RDW 19.9 H Plt Count 838 H Lymph % (Auto) [place] % (Auto) [place] # Baso # Seg Neutrophils % Seg Neuts % (Manual) Lymphocytes % (Manual) Monocytes % (Manual) Seg Neutrophils # Seg Neutrophils # Man Lymphocytes # (Manual) Monocytes # (Manual) Eosinophils # (Manual) Basophils # (Manual) PT INR APTT ABG pH ABG pO2 68.3 L ABG HCO3 33.5 H ABG O2 Saturation 93.5 L ABG Base Excess 8.4 H ABG Hemoglobin 7.3 L Oxyhemoglobin 90.9 L Sodium Potassium Chloride Carbon Dioxide BUN Creatinine Glucose POC Glucose 107 H Lactic Acid Calcium Ionized Calcium Phosphorus Magnesium Total Bilirubin AST ALT Alkaline Phosphatase Ammonia Total Creatine Kinase CK-MB (CK-2) CK-MB (CK-2) Rel Index Total Protein Albumin Urine WBC (Auto) Vancomycin Trough Salicylates Acetaminophen Plasma/Serum Alcohol Crossmatch 12/04/19 12/04/19 12/04/19 04:26 07:45 12:02 WBC 15.9 H RBC 2.88 L Hgb 7.9 L Hct 25.1 L MCH RDW 20.4 H Plt Count 839 H Lymph % (Auto) 11.3 L [place] % (Auto) 15.2 H [place] # 2.4 H Baso # Seg Neutrophils % 72.4 H Seg Neuts % (Manual) Lymphocytes % (Manual) Monocytes % (Manual) Seg Neutrophils # 11.5 H Seg Neutrophils # Man Lymphocytes # (Manual) Monocytes # (Manual) Eosinophils # (Manual) Basophils # (Manual) PT INR APTT ABG pH ABG pO2 ABG HCO3 ABG O2 Saturation ABG Base Excess ABG Hemoglobin Oxyhemoglobin Sodium Potassium Chloride 96.5 L Carbon Dioxide BUN 21 H Creatinine 0.6 L Glucose 107 H POC Glucose 138 H Lactic Acid Calcium Ionized Calcium Phosphorus Magnesium Total Bilirubin AST ALT Alkaline Phosphatase Ammonia Total Creatine Kinase CK-MB (CK-2) CK-MB (CK-2) Rel Index Total Protein Albumin Urine WBC (Auto) Vancomycin Trough Salicylates Acetaminophen Plasma/Serum Alcohol Crossmatch 12/04/19 12/05/19 12/05/19 18:16 11:55 18:36 WBC RBC Hgb Hct MCH RDW Plt Count Lymph % (Auto) [place] % (Auto) [place] # Baso # Seg Neutrophils % Seg Neuts % (Manual) Lymphocytes % (Manual) Monocytes % (Manual) Seg Neutrophils # Seg Neutrophils # Man Lymphocytes # (Manual) Monocytes # (Manual) Eosinophils # (Manual) Basophils # (Manual) PT INR APTT ABG pH ABG pO2 ABG HCO3 ABG O2 Saturation ABG Base Excess ABG Hemoglobin Oxyhemoglobin Sodium Potassium Chloride Carbon Dioxide BUN Creatinine Glucose POC Glucose 135 H 125 H 135 H Lactic Acid Calcium Ionized Calcium Phosphorus Magnesium Total Bilirubin AST ALT Alkaline Phosphatase Ammonia Total Creatine Kinase CK-MB (CK-2) CK-MB (CK-2) Rel Index Total Protein Albumin Urine WBC (Auto) Vancomycin Trough Salicylates Acetaminophen Plasma/Serum Alcohol Crossmatch 12/05/19 12/06/19 12/06/19 23:30 04:14 05:43 WBC RBC Hgb Hct MCH RDW Plt Count Lymph % (Auto) [place] % (Auto) [place] # Baso # Seg Neutrophils % Seg Neuts % (Manual) Lymphocytes % (Manual) Monocytes % (Manual) Seg Neutrophils # Seg Neutrophils # Man Lymphocytes # (Manual) Monocytes # (Manual) Eosinophils # (Manual) Basophils # (Manual) PT INR APTT ABG pH ABG pO2 ABG HCO3 ABG O2 Saturation ABG Base Excess ABG Hemoglobin Oxyhemoglobin Sodium Potassium 5.6 H Chloride 95.0 L Carbon Dioxide BUN 48 H Creatinine 1.3 H D Glucose POC Glucose 126 H 121 H Lactic Acid Calcium Ionized Calcium Phosphorus Magnesium Total Bilirubin AST 89 H ALT 98 H Alkaline Phosphatase 476 H Ammonia Total Creatine Kinase CK-MB (CK-2) CK-MB (CK-2) Rel Index Total Protein Albumin 2.8 L Urine WBC (Auto) Vancomycin Trough Salicylates Acetaminophen Plasma/Serum Alcohol Crossmatch 12/06/19 12/06/19 12/07/19 10:39 14:34 00:19 WBC 17.3 H RBC 2.60 L Hgb 7.1 L Hct 22.7 L MCH 27 L RDW 20.1 H Plt Count 832 H Lymph % (Auto) [place] % (Auto) [place] # Baso # Seg Neutrophils % Seg Neuts % (Manual) Lymphocytes % (Manual) Monocytes % (Manual) Seg Neutrophils # Seg Neutrophils # Man Lymphocytes # (Manual) Monocytes # (Manual) Eosinophils # (Manual) Basophils # (Manual) PT INR APTT ABG pH ABG pO2 ABG HCO3 ABG O2 Saturation ABG Base Excess ABG Hemoglobin Oxyhemoglobin Sodium Potassium Chloride Carbon Dioxide BUN Creatinine Glucose POC Glucose 128 H 136 H Lactic Acid Calcium Ionized Calcium Phosphorus Magnesium Total Bilirubin AST ALT Alkaline Phosphatase Ammonia Total Creatine Kinase CK-MB (CK-2) CK-MB (CK-2) Rel Index Total Protein Albumin Urine WBC (Auto) Vancomycin Trough Salicylates Acetaminophen Plasma/Serum Alcohol Crossmatch 12/07/19 12/07/19 12/07/19 03:44 03:44 05:53 WBC 16.2 H RBC 2.56 L Hgb 7.1 L Hct 22.3 L MCH RDW 19.4 H Plt Count 782 H Lymph % (Auto) [place] % (Auto) [place] # Baso # Seg Neutrophils % Seg Neuts % (Manual) Lymphocytes % (Manual) Monocytes % (Manual) Seg Neutrophils # Seg Neutrophils # Man Lymphocytes # (Manual) Monocytes # (Manual) Eosinophils # (Manual) Basophils # (Manual) PT INR APTT ABG pH ABG pO2 ABG HCO3 ABG O2 Saturation ABG Base Excess ABG Hemoglobin Oxyhemoglobin Sodium Potassium Chloride 95.6 L Carbon Dioxide BUN 56 H Creatinine 1.4 H Glucose 120 H POC Glucose 128 H Lactic Acid Calcium 10.3 H Ionized Calcium Phosphorus Magnesium Total Bilirubin AST ALT Alkaline Phosphatase Ammonia Total Creatine Kinase CK-MB (CK-2) CK-MB (CK-2) Rel Index Total Protein Albumin Urine WBC (Auto) Vancomycin Trough Salicylates Acetaminophen Plasma/Serum Alcohol Crossmatch 12/07/19 12/07/19 12/08/19 12:54 23:47 00:20 WBC RBC Hgb Hct MCH RDW Plt Count Lymph % (Auto) [place] % (Auto) [place] # Baso # Seg Neutrophils % Seg Neuts % (Manual) Lymphocytes % (Manual) Monocytes % (Manual) Seg Neutrophils # Seg Neutrophils # Man Lymphocytes # (Manual) Monocytes # (Manual) Eosinophils # (Manual) Basophils # (Manual) PT INR APTT ABG pH ABG pO2 ABG HCO3 ABG O2 Saturation ABG Base Excess ABG Hemoglobin Oxyhemoglobin Sodium Potassium Chloride Carbon Dioxide BUN Creatinine Glucose POC Glucose 128 H 130 H 124 H Lactic Acid Calcium Ionized Calcium Phosphorus Magnesium Total Bilirubin AST ALT Alkaline Phosphatase Ammonia Total Creatine Kinase CK-MB (CK-2) CK-MB (CK-2) Rel Index Total Protein Albumin Urine WBC (Auto) Vancomycin Trough Salicylates Acetaminophen Plasma/Serum Alcohol Crossmatch 12/08/19 12/08/19 12/08/19 06:38 12:04 18:26 WBC RBC Hgb Hct MCH RDW Plt Count Lymph % (Auto) [place] % (Auto) [place] # Baso # Seg Neutrophils % Seg Neuts % (Manual) Lymphocytes % (Manual) Monocytes % (Manual) Seg Neutrophils # Seg Neutrophils # Man Lymphocytes # (Manual) Monocytes # (Manual) Eosinophils # (Manual) Basophils # (Manual) PT INR APTT ABG pH ABG pO2 ABG HCO3 ABG O2 Saturation ABG Base Excess ABG Hemoglobin Oxyhemoglobin Sodium Potassium Chloride Carbon Dioxide BUN Creatinine Glucose POC Glucose 137 H 129 H 150 H Lactic Acid Calcium Ionized Calcium Phosphorus Magnesium Total Bilirubin AST ALT Alkaline Phosphatase Ammonia Total Creatine Kinase CK-MB (CK-2) CK-MB (CK-2) Rel Index Total Protein Albumin Urine WBC (Auto) Vancomycin Trough Salicylates Acetaminophen Plasma/Serum Alcohol Crossmatch 12/09/19 12/09/19 12/09/19 00:56 05:34 06:13 WBC RBC Hgb Hct MCH RDW Plt Count Lymph % (Auto) [place] % (Auto) [place] # Baso # Seg Neutrophils % Seg Neuts % (Manual) Lymphocytes % (Manual) Monocytes % (Manual) Seg Neutrophils # Seg Neutrophils # Man Lymphocytes # (Manual) Monocytes # (Manual) Eosinophils # (Manual) Basophils # (Manual) PT INR APTT ABG pH ABG pO2 ABG HCO3 ABG O2 Saturation ABG Base Excess ABG Hemoglobin Oxyhemoglobin Sodium 146 H Potassium Chloride Carbon Dioxide BUN 66 H Creatinine 1.9 H Glucose 116 H POC Glucose 130 H 130 H Lactic Acid Calcium Ionized Calcium Phosphorus Magnesium Total Bilirubin AST ALT Alkaline Phosphatase Ammonia Total Creatine Kinase CK-MB (CK-2) CK-MB (CK-2) Rel Index Total Protein Albumin Urine WBC (Auto) Vancomycin Trough Salicylates Acetaminophen Plasma/Serum Alcohol Crossmatch 12/09/19 12/09/19 12/10/19 11:52 17:50 00:14 WBC RBC Hgb Hct MCH RDW Plt Count Lymph % (Auto) [place] % (Auto) [place] # Baso # Seg Neutrophils % Seg Neuts % (Manual) Lymphocytes % (Manual) Monocytes % (Manual) Seg Neutrophils # Seg Neutrophils # Man Lymphocytes # (Manual) Monocytes # (Manual) Eosinophils # (Manual) Basophils # (Manual) PT INR APTT ABG pH ABG pO2 ABG HCO3 ABG O2 Saturation ABG Base Excess ABG Hemoglobin Oxyhemoglobin Sodium Potassium Chloride Carbon Dioxide BUN Creatinine Glucose POC Glucose 135 H 120 H 116 H Lactic Acid Calcium Ionized Calcium Phosphorus Magnesium Total Bilirubin AST ALT Alkaline Phosphatase Ammonia Total Creatine Kinase CK-MB (CK-2) CK-MB (CK-2) Rel Index Total Protein Albumin Urine WBC (Auto) Vancomycin Trough Salicylates Acetaminophen Plasma/Serum Alcohol Crossmatch 12/10/19 12/10/19 12/10/19 05:38 11:38 17:34 WBC RBC Hgb Hct MCH RDW Plt Count Lymph % (Auto) [place] % (Auto) [place] # Baso # Seg Neutrophils % Seg Neuts % (Manual) Lymphocytes % (Manual) Monocytes % (Manual) Seg Neutrophils # Seg Neutrophils # Man Lymphocytes # (Manual) Monocytes # (Manual) Eosinophils # (Manual) Basophils # (Manual) PT INR APTT ABG pH ABG pO2 ABG HCO3 ABG O2 Saturation ABG Base Excess ABG Hemoglobin Oxyhemoglobin Sodium Potassium Chloride Carbon Dioxide BUN Creatinine Glucose POC Glucose 115 H 112 H 130 H Lactic Acid Calcium Ionized Calcium Phosphorus Magnesium Total Bilirubin AST ALT Alkaline Phosphatase Ammonia Total Creatine Kinase CK-MB (CK-2) CK-MB (CK-2) Rel Index Total Protein Albumin Urine WBC (Auto) Vancomycin Trough Salicylates Acetaminophen Plasma/Serum Alcohol Crossmatch 12/11/19 12/11/19 12/11/19 00:20 05:31 12:22 WBC RBC Hgb Hct MCH RDW Plt Count Lymph % (Auto) [place] % (Auto) [place] # Baso # Seg Neutrophils % Seg Neuts % (Manual) Lymphocytes % (Manual) Monocytes % (Manual) Seg Neutrophils # Seg Neutrophils # Man Lymphocytes # (Manual) Monocytes # (Manual) Eosinophils # (Manual) Basophils # (Manual) PT INR APTT ABG pH ABG pO2 ABG HCO3 ABG O2 Saturation ABG Base Excess ABG Hemoglobin Oxyhemoglobin Sodium Potassium Chloride Carbon Dioxide BUN Creatinine Glucose POC Glucose 124 H 132 H 128 H Lactic Acid Calcium Ionized Calcium Phosphorus Magnesium Total Bilirubin AST ALT Alkaline Phosphatase Ammonia Total Creatine Kinase CK-MB (CK-2) CK-MB (CK-2) Rel Index Total Protein Albumin Urine WBC (Auto) Vancomycin Trough Salicylates Acetaminophen Plasma/Serum Alcohol Crossmatch 12/11/19 12/11/19 12/12/19 18:04 23:42 03:51 WBC RBC Hgb Hct MCH RDW Plt Count Lymph % (Auto) [place] % (Auto) [place] # Baso # Seg Neutrophils % Seg Neuts % (Manual) Lymphocytes % (Manual) Monocytes % (Manual) Seg Neutrophils # Seg Neutrophils # Man Lymphocytes # (Manual) Monocytes # (Manual) Eosinophils # (Manual) Basophils # (Manual) PT INR APTT ABG pH ABG pO2 ABG HCO3 ABG O2 Saturation ABG Base Excess ABG Hemoglobin Oxyhemoglobin Sodium 149 H Potassium Chloride Carbon Dioxide 20 L D BUN 77 H Creatinine 2.8 H Glucose POC Glucose 133 H 154 H Lactic Acid Calcium Ionized Calcium Phosphorus Magnesium Total Bilirubin AST ALT Alkaline Phosphatase Ammonia Total Creatine Kinase CK-MB (CK-2) CK-MB (CK-2) Rel Index Total Protein Albumin Urine WBC (Auto) Vancomycin Trough Salicylates Acetaminophen Plasma/Serum Alcohol Crossmatch 12/12/19 12/12/19 12/12/19 05:18 05:26 10:30 WBC 18.0 H RBC 2.51 L Hgb 6.8 L Hct 22.0 L MCH 27 L RDW 19.9 H Plt Count 582 H Lymph % (Auto) [place] % (Auto) [place] # Baso # Seg Neutrophils % Seg Neuts % (Manual) Lymphocytes % (Manual) Monocytes % (Manual) Seg Neutrophils # Seg Neutrophils # Man Lymphocytes # (Manual) Monocytes # (Manual) Eosinophils # (Manual) Basophils # (Manual) PT INR APTT ABG pH ABG pO2 ABG HCO3 ABG O2 Saturation ABG Base Excess ABG Hemoglobin Oxyhemoglobin Sodium Potassium Chloride Carbon Dioxide BUN Creatinine Glucose POC Glucose 135 H Lactic Acid Calcium Ionized Calcium Phosphorus Magnesium Total Bilirubin AST ALT Alkaline Phosphatase Ammonia Total Creatine Kinase CK-MB (CK-2) CK-MB (CK-2) Rel Index Total Protein Albumin Urine WBC (Auto) Vancomycin Trough Salicylates Acetaminophen Plasma/Serum Alcohol Crossmatch See Detail 12/12/19 12/12/19 12/12/19 11:44 18:10 23:21 WBC RBC Hgb Hct MCH RDW Plt Count Lymph % (Auto) [place] % (Auto) [place] # Baso # Seg Neutrophils % Seg Neuts % (Manual) Lymphocytes % (Manual) Monocytes % (Manual) Seg Neutrophils # Seg Neutrophils # Man Lymphocytes # (Manual) Monocytes # (Manual) Eosinophils # (Manual) Basophils # (Manual) PT INR APTT ABG pH ABG pO2 ABG HCO3 ABG O2 Saturation ABG Base Excess ABG Hemoglobin Oxyhemoglobin Sodium Potassium Chloride Carbon Dioxide BUN Creatinine Glucose POC Glucose 108 H 107 H 126 H Lactic Acid Calcium Ionized Calcium Phosphorus Magnesium Total Bilirubin AST ALT Alkaline Phosphatase Ammonia Total Creatine Kinase CK-MB (CK-2) CK-MB (CK-2) Rel Index Total Protein Albumin Urine WBC (Auto) Vancomycin Trough Salicylates Acetaminophen Plasma/Serum Alcohol Crossmatch 12/13/19 12/13/19 12/13/19 05:41 07:48 07:48 WBC 38.3 H RBC 2.37 L Hgb 6.3 L Hct 20.9 L MCH 27 L RDW 20.2 H Plt Count 546 H Lymph % (Auto) [place] % (Auto) [place] # Baso # Seg Neutrophils % Seg Neuts % (Manual) 93.0 H Lymphocytes % (Manual) 1.0 L Monocytes % (Manual) Seg Neutrophils # Seg Neutrophils # Man 35.6 H Lymphocytes # (Manual) 0.4 L Monocytes # (Manual) Eosinophils # (Manual) Basophils # (Manual) 0.4 H PT INR APTT ABG pH ABG pO2 ABG HCO3 ABG O2 Saturation ABG Base Excess ABG Hemoglobin Oxyhemoglobin Sodium 152 H Potassium 3.1 L D Chloride 111.9 H Carbon Dioxide 21 L BUN 53 H Creatinine 1.9 H Glucose 141 H POC Glucose 128 H Lactic Acid Calcium Ionized Calcium Phosphorus Magnesium Total Bilirubin AST ALT Alkaline Phosphatase 316 H Ammonia Total Creatine Kinase CK-MB (CK-2) CK-MB (CK-2) Rel Index Total Protein Albumin 2.4 L Urine WBC (Auto) Vancomycin Trough Salicylates Acetaminophen Plasma/Serum Alcohol Crossmatch 12/13/19 12/13/19 12/14/19 18:17 23:19 05:36 WBC RBC Hgb Hct MCH RDW Plt Count Lymph % (Auto) [place] % (Auto) [place] # Baso # Seg Neutrophils % Seg Neuts % (Manual) Lymphocytes % (Manual) Monocytes % (Manual) Seg Neutrophils # Seg Neutrophils # Man Lymphocytes # (Manual) Monocytes # (Manual) Eosinophils # (Manual) Basophils # (Manual) PT INR APTT ABG pH ABG pO2 ABG HCO3 ABG O2 Saturation ABG Base Excess ABG Hemoglobin Oxyhemoglobin Sodium Potassium Chloride Carbon Dioxide BUN Creatinine Glucose POC Glucose 141 H 158 H 182 H Lactic Acid Calcium Ionized Calcium Phosphorus Magnesium Total Bilirubin AST ALT Alkaline Phosphatase Ammonia Total Creatine Kinase CK-MB (CK-2) CK-MB (CK-2) Rel Index Total Protein Albumin Urine WBC (Auto) Vancomycin Trough Salicylates Acetaminophen Plasma/Serum Alcohol Crossmatch 12/14/19 12/14/19 12/14/19 08:48 08:48 10:31 WBC 33.3 H RBC 2.70 L Hgb 7.9 L 8.0 L Hct 25.3 L 24.0 L MCH RDW 19.2 H Plt Count 476 H Lymph % (Auto) [place] % (Auto) [place] # Baso # Seg Neutrophils % Seg Neuts % (Manual) Lymphocytes % (Manual) Monocytes % (Manual) Seg Neutrophils # Seg Neutrophils # Man Lymphocytes # (Manual) Monocytes # (Manual) Eosinophils # (Manual) Basophils # (Manual) PT INR APTT ABG pH ABG pO2 ABG HCO3 ABG O2 Saturation ABG Base Excess ABG Hemoglobin Oxyhemoglobin Sodium 153 H Potassium 2.5 L* Chloride 114.9 H Carbon Dioxide 20 L BUN 38 H Creatinine 1.4 H Glucose 177 H POC Glucose Lactic Acid Calcium Ionized Calcium Phosphorus Magnesium Total Bilirubin AST ALT Alkaline Phosphatase Ammonia Total Creatine Kinase CK-MB (CK-2) CK-MB (CK-2) Rel Index Total Protein Albumin Urine WBC (Auto) Vancomycin Trough Salicylates Acetaminophen Plasma/Serum Alcohol Crossmatch 12/14/19 12/14/19 12/14/19 12:57 16:15 17:50 WBC RBC Hgb Hct MCH RDW Plt Count Lymph % (Auto) [place] % (Auto) [place] # Baso # Seg Neutrophils % Seg Neuts % (Manual) Lymphocytes % (Manual) Monocytes % (Manual) Seg Neutrophils # Seg Neutrophils # Man Lymphocytes # (Manual) Monocytes # (Manual) Eosinophils # (Manual) Basophils # (Manual) PT INR APTT ABG pH ABG pO2 73.6 L ABG HCO3 ABG O2 Saturation ABG Base Excess ABG Hemoglobin 7.6 L Oxyhemoglobin 94.0 L Sodium Potassium Chloride Carbon Dioxide BUN Creatinine Glucose POC Glucose 174 H 150 H Lactic Acid Calcium Ionized Calcium Phosphorus Magnesium Total Bilirubin AST ALT Alkaline Phosphatase Ammonia Total Creatine Kinase CK-MB (CK-2) CK-MB (CK-2) Rel Index Total Protein Albumin Urine WBC (Auto) Vancomycin Trough Salicylates Acetaminophen Plasma/Serum Alcohol Crossmatch 12/15/19 12/15/19 12/15/19 00:28 05:27 07:23 WBC 30.0 H RBC 3.11 L Hgb 8.6 L Hct 27.7 L MCH RDW 20.0 H Plt Count 473 H Lymph % (Auto) [place] % (Auto) [place] # Baso # Seg Neutrophils % Seg Neuts % (Manual) Lymphocytes % (Manual) Monocytes % (Manual) Seg Neutrophils # Seg Neutrophils # Man Lymphocytes # (Manual) Monocytes # (Manual) Eosinophils # (Manual) Basophils # (Manual) PT INR APTT ABG pH ABG pO2 ABG HCO3 ABG O2 Saturation ABG Base Excess ABG Hemoglobin Oxyhemoglobin Sodium Potassium Chloride Carbon Dioxide BUN Creatinine Glucose POC Glucose 167 H 148 H Lactic Acid Calcium Ionized Calcium Phosphorus Magnesium Total Bilirubin AST ALT Alkaline Phosphatase Ammonia Total Creatine Kinase CK-MB (CK-2) CK-MB (CK-2) Rel Index Total Protein Albumin Urine WBC (Auto) Vancomycin Trough Salicylates Acetaminophen Plasma/Serum Alcohol Crossmatch 12/15/19 12/15/19 12/15/19 07:23 12:21 17:41 WBC RBC Hgb Hct MCH RDW Plt Count Lymph % (Auto) [place] % (Auto) [place] # Baso # Seg Neutrophils % Seg Neuts % (Manual) Lymphocytes % (Manual) Monocytes % (Manual) Seg Neutrophils # Seg Neutrophils # Man Lymphocytes # (Manual) Monocytes # (Manual) Eosinophils # (Manual) Basophils # (Manual) PT INR APTT ABG pH ABG pO2 ABG HCO3 ABG O2 Saturation ABG Base Excess ABG Hemoglobin Oxyhemoglobin Sodium 147 H Potassium 3.5 L D Chloride 111.2 H Carbon Dioxide 19 L BUN 29 H Creatinine Glucose 126 H POC Glucose 154 H 144 H Lactic Acid Calcium Ionized Calcium Phosphorus Magnesium Total Bilirubin AST ALT Alkaline Phosphatase Ammonia Total Creatine Kinase CK-MB (CK-2) CK-MB (CK-2) Rel Index Total Protein Albumin Urine WBC (Auto) Vancomycin Trough Salicylates Acetaminophen Plasma/Serum Alcohol Crossmatch 12/16/19 12/16/19 12/16/19 00:22 05:30 05:44 WBC 30.8 H RBC 2.58 L Hgb 7.1 L Hct 22.7 L MCH RDW 19.6 H Plt Count 451 H Lymph % (Auto) [place] % (Auto) [place] # Baso # Seg Neutrophils % Seg Neuts % (Manual) Lymphocytes % (Manual) Monocytes % (Manual) Seg Neutrophils # Seg Neutrophils # Man Lymphocytes # (Manual) Monocytes # (Manual) Eosinophils # (Manual) Basophils # (Manual) PT INR APTT ABG pH ABG pO2 ABG HCO3 ABG O2 Saturation ABG Base Excess ABG Hemoglobin Oxyhemoglobin Sodium Potassium Chloride Carbon Dioxide BUN Creatinine Glucose POC Glucose 139 H 126 H Lactic Acid Calcium Ionized Calcium Phosphorus Magnesium Total Bilirubin AST ALT Alkaline Phosphatase Ammonia Total Creatine Kinase CK-MB (CK-2) CK-MB (CK-2) Rel Index Total Protein Albumin Urine WBC (Auto) Vancomycin Trough Salicylates Acetaminophen Plasma/Serum Alcohol Crossmatch 12/16/19 12/16/19 12/16/19 05:44 11:48 17:37 WBC RBC Hgb Hct MCH RDW Plt Count Lymph % (Auto) [place] % (Auto) [place] # Baso # Seg Neutrophils % Seg Neuts % (Manual) Lymphocytes % (Manual) Monocytes % (Manual) Seg Neutrophils # Seg Neutrophils # Man Lymphocytes # (Manual) Monocytes # (Manual) Eosinophils # (Manual) Basophils # (Manual) PT INR APTT ABG pH ABG pO2 ABG HCO3 ABG O2 Saturation ABG Base Excess ABG Hemoglobin Oxyhemoglobin Sodium Potassium 3.4 L Chloride 109.2 H Carbon Dioxide 19 L BUN 27 H Creatinine Glucose 124 H POC Glucose 125 H 148 H Lactic Acid Calcium Ionized Calcium Phosphorus Magnesium Total Bilirubin AST ALT Alkaline Phosphatase Ammonia Total Creatine Kinase CK-MB (CK-2) CK-MB (CK-2) Rel Index Total Protein Albumin Urine WBC (Auto) Vancomycin Trough Salicylates Acetaminophen Plasma/Serum Alcohol Crossmatch 12/16/19 12/17/19 12/17/19 23:43 05:28 12:47 WBC RBC Hgb Hct MCH RDW Plt Count Lymph % (Auto) [place] % (Auto) [place] # Baso # Seg Neutrophils % Seg Neuts % (Manual) Lymphocytes % (Manual) Monocytes % (Manual) Seg Neutrophils # Seg Neutrophils # Man Lymphocytes # (Manual) Monocytes # (Manual) Eosinophils # (Manual) Basophils # (Manual) PT INR APTT ABG pH ABG pO2 ABG HCO3 ABG O2 Saturation ABG Base Excess ABG Hemoglobin Oxyhemoglobin Sodium Potassium Chloride Carbon Dioxide BUN Creatinine Glucose POC Glucose 142 H 140 H 125 H Lactic Acid Calcium Ionized Calcium Phosphorus Magnesium Total Bilirubin AST ALT Alkaline Phosphatase Ammonia Total Creatine Kinase CK-MB (CK-2) CK-MB (CK-2) Rel Index Total Protein Albumin Urine WBC (Auto) Vancomycin Trough Salicylates Acetaminophen Plasma/Serum Alcohol Crossmatch 12/17/19 12/17/19 12/17/19 17:05 18:00 Unknown WBC RBC Hgb Hct MCH RDW Plt Count Lymph % (Auto) [place] % (Auto) [place] # Baso # Seg Neutrophils % Seg Neuts % (Manual) Lymphocytes % (Manual) Monocytes % (Manual) Seg Neutrophils # Seg Neutrophils # Man Lymphocytes # (Manual) Monocytes # (Manual) Eosinophils # (Manual) Basophils # (Manual) PT INR APTT ABG pH ABG pO2 68.1 L ABG HCO3 ABG O2 Saturation 93.7 L ABG Base Excess ABG Hemoglobin 5.0 L Oxyhemoglobin 91.7 L Sodium Potassium Chloride Carbon Dioxide BUN Creatinine Glucose POC Glucose 140 H Lactic Acid Calcium Ionized Calcium Phosphorus Magnesium Total Bilirubin AST ALT Alkaline Phosphatase Ammonia Total Creatine Kinase CK-MB (CK-2) CK-MB (CK-2) Rel Index Total Protein Albumin Urine WBC (Auto) Vancomycin Trough Salicylates Acetaminophen Plasma/Serum Alcohol Crossmatch 12/18/19 12/18/19 12/18/19 00:16 04:53 04:53 WBC 28.6 H RBC 2.27 L Hgb 6.3 L Hct 19.5 L* MCH RDW 20.0 H Plt Count 497 H Lymph % (Auto) [place] % (Auto) [place] # Baso # Seg Neutrophils % Seg Neuts % (Manual) Lymphocytes % (Manual) Monocytes % (Manual) Seg Neutrophils # Seg Neutrophils # Man Lymphocytes # (Manual) Monocytes # (Manual) Eosinophils # (Manual) Basophils # (Manual) PT INR APTT ABG pH ABG pO2 ABG HCO3 ABG O2 Saturation ABG Base Excess ABG Hemoglobin Oxyhemoglobin Sodium Potassium Chloride 107.9 H Carbon Dioxide 20 L BUN 27 H Creatinine 0.6 L Glucose 116 H POC Glucose 123 H Lactic Acid Calcium Ionized Calcium Phosphorus Magnesium Total Bilirubin AST ALT Alkaline Phosphatase Ammonia Total Creatine Kinase CK-MB (CK-2) CK-MB (CK-2) Rel Index Total Protein Albumin Urine WBC (Auto) Vancomycin Trough Salicylates Acetaminophen Plasma/Serum Alcohol Crossmatch 12/18/19 12/18/19 12/18/19 06:38 11:22 12:08 WBC RBC Hgb Hct MCH RDW Plt Count Lymph % (Auto) [place] % (Auto) [place] # Baso # Seg Neutrophils % Seg Neuts % (Manual) Lymphocytes % (Manual) Monocytes % (Manual) Seg Neutrophils # Seg Neutrophils # Man Lymphocytes # (Manual) Monocytes # (Manual) Eosinophils # (Manual) Basophils # (Manual) PT INR APTT ABG pH ABG pO2 ABG HCO3 ABG O2 Saturation ABG Base Excess ABG Hemoglobin Oxyhemoglobin Sodium Potassium Chloride Carbon Dioxide BUN Creatinine Glucose POC Glucose 120 H 127 H Lactic Acid Calcium Ionized Calcium Phosphorus Magnesium Total Bilirubin AST ALT Alkaline Phosphatase Ammonia Total Creatine Kinase CK-MB (CK-2) CK-MB (CK-2) Rel Index Total Protein Albumin Urine WBC (Auto) Vancomycin Trough Salicylates Acetaminophen Plasma/Serum Alcohol Crossmatch See Detail 03/12/18/19 12/18/19 14:05 17:49 23:53 WBC RBC Hgb Hct MCH RDW Plt Count Lymph % (Auto) [place] % (Auto) [place] # Baso # Seg Neutrophils % Seg Neuts % (Manual) Lymphocytes % (Manual) Monocytes % (Manual) Seg Neutrophils # Seg Neutrophils # Man Lymphocytes # (Manual) Monocytes # (Manual) Eosinophils # (Manual) Basophils # (Manual) PT INR APTT ABG pH 7.267 L ABG pO2 69.8 L ABG HCO3 ABG O2 Saturation 88.4 L ABG Base Excess ABG Hemoglobin 7.1 L Oxyhemoglobin 86.4 L Sodium Potassium Chloride Carbon Dioxide BUN Creatinine Glucose POC Glucose 157 H 128 H Lactic Acid Calcium Ionized Calcium Phosphorus Magnesium Total Bilirubin AST ALT Alkaline Phosphatase Ammonia Total Creatine Kinase CK-MB (CK-2) CK-MB (CK-2) Rel Index Total Protein Albumin Urine WBC (Auto) Vancomycin Trough Salicylates Acetaminophen Plasma/Serum Alcohol Crossmatch 12/19/19 12/19/19 12/19/19 03:37 03:37 05:25 WBC 31.3 H RBC 2.60 L Hgb 7.6 L Hct 23.0 L MCH RDW 19.4 H Plt Count 530 H Lymph % (Auto) [place] % (Auto) [place] # Baso # Seg Neutrophils % Seg Neuts % (Manual) Lymphocytes % (Manual) Monocytes % (Manual) Seg Neutrophils # Seg Neutrophils # Man Lymphocytes # (Manual) Monocytes # (Manual) Eosinophils # (Manual) Basophils # (Manual) PT INR APTT ABG pH ABG pO2 ABG HCO3 ABG O2 Saturation ABG Base Excess ABG Hemoglobin Oxyhemoglobin Sodium Potassium Chloride Carbon Dioxide 18 L BUN 36 H Creatinine Glucose 111 H POC Glucose 123 H Lactic Acid Calcium Ionized Calcium Phosphorus Magnesium Total Bilirubin AST ALT Alkaline Phosphatase Ammonia Total Creatine Kinase CK-MB (CK-2) CK-MB (CK-2) Rel Index Total Protein Albumin Urine WBC (Auto) Vancomycin Trough Salicylates Acetaminophen Plasma/Serum Alcohol Crossmatch 12/19/19 12/19/19 12/20/19 12:59 18:33 00:00 WBC RBC Hgb Hct MCH RDW Plt Count Lymph % (Auto) [place] % (Auto) [place] # Baso # Seg Neutrophils % Seg Neuts % (Manual) Lymphocytes % (Manual) Monocytes % (Manual) Seg Neutrophils # Seg Neutrophils # Man Lymphocytes # (Manual) Monocytes # (Manual) Eosinophils # (Manual) Basophils # (Manual) PT INR APTT ABG pH ABG pO2 ABG HCO3 ABG O2 Saturation ABG Base Excess ABG Hemoglobin Oxyhemoglobin Sodium Potassium Chloride Carbon Dioxide BUN Creatinine Glucose POC Glucose 130 H 118 H 135 H Lactic Acid Calcium Ionized Calcium Phosphorus Magnesium Total Bilirubin AST ALT Alkaline Phosphatase Ammonia Total Creatine Kinase CK-MB (CK-2) CK-MB (CK-2) Rel Index Total Protein Albumin Urine WBC (Auto) Vancomycin Trough Salicylates Acetaminophen Plasma/Serum Alcohol Crossmatch 12/20/19 12/20/19 12/20/19 05:46 12:31 18:07 WBC RBC Hgb Hct MCH RDW Plt Count Lymph % (Auto) [place] % (Auto) [place] # Baso # Seg Neutrophils % Seg Neuts % (Manual) Lymphocytes % (Manual) Monocytes % (Manual) Seg Neutrophils # Seg Neutrophils # Man Lymphocytes # (Manual) Monocytes # (Manual) Eosinophils # (Manual) Basophils # (Manual) PT INR APTT ABG pH ABG pO2 ABG HCO3 ABG O2 Saturation ABG Base Excess ABG Hemoglobin Oxyhemoglobin Sodium Potassium Chloride Carbon Dioxide BUN Creatinine Glucose POC Glucose 131 H 128 H 134 H Lactic Acid Calcium Ionized Calcium Phosphorus Magnesium Total Bilirubin AST ALT Alkaline Phosphatase Ammonia Total Creatine Kinase CK-MB (CK-2) CK-MB (CK-2) Rel Index Total Protein Albumin Urine WBC (Auto) Vancomycin Trough Salicylates Acetaminophen Plasma/Serum Alcohol Crossmatch 12/21/19 12/21/19 12/21/19 03:28 03:28 07:21 WBC 29.4 H RBC 2.30 L Hgb 6.8 L Hct 20.2 L MCH RDW 20.2 H Plt Count 746 H Lymph % (Auto) [place] % (Auto) [place] # Baso # Seg Neutrophils % Seg Neuts % (Manual) 85.0 H Lymphocytes % (Manual) 8.0 L Monocytes % (Manual) Seg Neutrophils # Seg Neutrophils # Man 25.0 H Lymphocytes # (Manual) Monocytes # (Manual) 1.5 H Eosinophils # (Manual) 0.6 H Basophils # (Manual) PT INR APTT ABG pH ABG pO2 ABG HCO3 ABG O2 Saturation ABG Base Excess ABG Hemoglobin Oxyhemoglobin Sodium Potassium Chloride Carbon Dioxide 17 L BUN 57 H Creatinine 1.4 H D Glucose POC Glucose 124 H Lactic Acid Calcium Ionized Calcium Phosphorus Magnesium Total Bilirubin AST ALT Alkaline Phosphatase Ammonia Total Creatine Kinase CK-MB (CK-2) CK-MB (CK-2) Rel Index Total Protein Albumin Urine WBC (Auto) Vancomycin Trough Salicylates Acetaminophen Plasma/Serum Alcohol Crossmatch 12/21/19 12/21/19 12/21/19 08:56 12:06 14:53 WBC RBC Hgb 7.2 L Hct 22.9 L MCH RDW Plt Count Lymph % (Auto) [place] % (Auto) [place] # Baso # Seg Neutrophils % Seg Neuts % (Manual) Lymphocytes % (Manual) Monocytes % (Manual) Seg Neutrophils # Seg Neutrophils # Man Lymphocytes # (Manual) Monocytes # (Manual) Eosinophils # (Manual) Basophils # (Manual) PT INR APTT ABG pH ABG pO2 ABG HCO3 ABG O2 Saturation ABG Base Excess ABG Hemoglobin Oxyhemoglobin Sodium Potassium Chloride Carbon Dioxide BUN Creatinine Glucose POC Glucose 116 H Lactic Acid Calcium Ionized Calcium Phosphorus Magnesium Total Bilirubin AST ALT Alkaline Phosphatase Ammonia Total Creatine Kinase CK-MB (CK-2) CK-MB (CK-2) Rel Index Total Protein Albumin Urine WBC (Auto) Vancomycin Trough 33.8 H Salicylates Acetaminophen Plasma/Serum Alcohol Crossmatch 12/21/19 12/21/19 12/21/19 14:54 17:27 23:49 WBC RBC Hgb Hct MCH RDW Plt Count Lymph % (Auto) [place] % (Auto) [place] # Baso # Seg Neutrophils % Seg Neuts % (Manual) Lymphocytes % (Manual) Monocytes % (Manual) Seg Neutrophils # Seg Neutrophils # Man Lymphocytes # (Manual) Monocytes # (Manual) Eosinophils # (Manual) Basophils # (Manual) PT INR APTT ABG pH ABG pO2 ABG HCO3 ABG O2 Saturation ABG Base Excess ABG Hemoglobin Oxyhemoglobin Sodium Potassium Chloride Carbon Dioxide BUN Creatinine Glucose POC Glucose 145 H 127 H Lactic Acid Calcium Ionized Calcium Phosphorus Magnesium Total Bilirubin AST ALT Alkaline Phosphatase Ammonia Total Creatine Kinase CK-MB (CK-2) CK-MB (CK-2) Rel Index Total Protein Albumin Urine WBC (Auto) Vancomycin Trough Salicylates Acetaminophen Plasma/Serum Alcohol Crossmatch See Detail 12/22/19 12/22/19 12/22/19 04:43 05:56 08:40 WBC RBC Hgb Hct MCH RDW Plt Count Lymph % (Auto) [place] % (Auto) [place] # Baso # Seg Neutrophils % Seg Neuts % (Manual) Lymphocytes % (Manual) Monocytes % (Manual) Seg Neutrophils # Seg Neutrophils # Man Lymphocytes # (Manual) Monocytes # (Manual) Eosinophils # (Manual) Basophils # (Manual) PT INR APTT ABG pH ABG pO2 75.6 L ABG HCO3 ABG O2 Saturation ABG Base Excess -2.6 L ABG Hemoglobin 6.8 L Oxyhemoglobin 94.6 L Sodium Potassium Chloride Carbon Dioxide 17 L BUN 60 H Creatinine 1.4 H Glucose 126 H POC Glucose 153 H Lactic Acid Calcium Ionized Calcium Phosphorus Magnesium Total Bilirubin AST ALT Alkaline Phosphatase Ammonia Total Creatine Kinase CK-MB (CK-2) CK-MB (CK-2) Rel Index Total Protein Albumin Urine WBC (Auto) Vancomycin Trough Salicylates Acetaminophen Plasma/Serum Alcohol Crossmatch 12/22/19 12/22/19 12/23/19 12:07 17:49 04:30 WBC 22.4 H RBC 2.68 L Hgb 7.6 L Hct 22.9 L MCH RDW 19.9 H Plt Count 998 H Lymph % (Auto) [place] % (Auto) [place] # Baso # Seg Neutrophils % Seg Neuts % (Manual) 88.0 H Lymphocytes % (Manual) 2.0 L Monocytes % (Manual) 9.0 H Seg Neutrophils # Seg Neutrophils # Man 19.7 H Lymphocytes # (Manual) 0.4 L Monocytes # (Manual) 2.0 H Eosinophils # (Manual) Basophils # (Manual) PT INR APTT ABG pH ABG pO2 ABG HCO3 ABG O2 Saturation ABG Base Excess ABG Hemoglobin Oxyhemoglobin Sodium Potassium Chloride Carbon Dioxide BUN Creatinine Glucose POC Glucose 140 H 116 H Lactic Acid Calcium Ionized Calcium Phosphorus Magnesium Total Bilirubin AST ALT Alkaline Phosphatase Ammonia Total Creatine Kinase CK-MB (CK-2) CK-MB (CK-2) Rel Index Total Protein Albumin Urine WBC (Auto) Vancomycin Trough Salicylates Acetaminophen Plasma/Serum Alcohol Crossmatch 12/23/19 12/23/19 12/23/19 04:30 12:00 18:06 WBC RBC Hgb Hct MCH RDW Plt Count Lymph % (Auto) [place] % (Auto) [place] # Baso # Seg Neutrophils % Seg Neuts % (Manual) Lymphocytes % (Manual) Monocytes % (Manual) Seg Neutrophils # Seg Neutrophils # Man Lymphocytes # (Manual) Monocytes # (Manual) Eosinophils # (Manual) Basophils # (Manual) PT INR APTT ABG pH ABG pO2 ABG HCO3 ABG O2 Saturation ABG Base Excess ABG Hemoglobin Oxyhemoglobin Sodium Potassium 5.2 H Chloride Carbon Dioxide 21 L BUN 69 H Creatinine 1.5 H Glucose 117 H POC Glucose 128 H 138 H Lactic Acid Calcium Ionized Calcium Phosphorus Magnesium Total Bilirubin AST ALT Alkaline Phosphatase Ammonia Total Creatine Kinase CK-MB (CK-2) CK-MB (CK-2) Rel Index Total Protein Albumin Urine WBC (Auto) Vancomycin Trough Salicylates Acetaminophen Plasma/Serum Alcohol Crossmatch 12/23/19 12/24/19 12/24/19 23:46 04:31 05:08 WBC RBC Hgb Hct MCH RDW Plt Count Lymph % (Auto) [place] % (Auto) [place] # Baso # Seg Neutrophils % Seg Neuts % (Manual) Lymphocytes % (Manual) Monocytes % (Manual) Seg Neutrophils # Seg Neutrophils # Man Lymphocytes # (Manual) Monocytes # (Manual) Eosinophils # (Manual) Basophils # (Manual) PT INR APTT ABG pH ABG pO2 ABG HCO3 ABG O2 Saturation ABG Base Excess ABG Hemoglobin Oxyhemoglobin Sodium Potassium 5.3 H Chloride 107.6 H Carbon Dioxide 20 L BUN 72 H Creatinine 1.6 H Glucose 120 H POC Glucose 120 H 140 H Lactic Acid Calcium Ionized Calcium Phosphorus Magnesium Total Bilirubin AST ALT Alkaline Phosphatase Ammonia Total Creatine Kinase CK-MB (CK-2) CK-MB (CK-2) Rel Index Total Protein Albumin Urine WBC (Auto) Vancomycin Trough Salicylates Acetaminophen Plasma/Serum Alcohol Crossmatch 12/24/19 12/24/19 12/25/19 11:58 17:49 03:47 WBC 36.2 H RBC 2.92 L Hgb 8.4 L Hct 26.1 L MCH RDW 20.2 H Plt Count 942 H Lymph % (Auto) [place] % (Auto) [place] # Baso # Seg Neutrophils % Seg Neuts % (Manual) 97.5 H Lymphocytes % (Manual) 1.0 L Monocytes % (Manual) Seg Neutrophils # Seg Neutrophils # Man 35.3 H Lymphocytes # (Manual) 0.4 L Monocytes # (Manual) Eosinophils # (Manual) Basophils # (Manual) PT INR APTT ABG pH ABG pO2 ABG HCO3 ABG O2 Saturation ABG Base Excess ABG Hemoglobin Oxyhemoglobin Sodium Potassium Chloride Carbon Dioxide BUN Creatinine Glucose POC Glucose 146 H 131 H Lactic Acid Calcium Ionized Calcium Phosphorus Magnesium Total Bilirubin AST ALT Alkaline Phosphatase Ammonia Total Creatine Kinase CK-MB (CK-2) CK-MB (CK-2) Rel Index Total Protein Albumin Urine WBC (Auto) Vancomycin Trough Salicylates Acetaminophen Plasma/Serum Alcohol Crossmatch 12/25/19 12/25/19 12/25/19 03:47 05:30 12:23 WBC RBC Hgb Hct MCH RDW Plt Count Lymph % (Auto) [place] % (Auto) [place] # Baso # Seg Neutrophils % Seg Neuts % (Manual) Lymphocytes % (Manual) Monocytes % (Manual) Seg Neutrophils # Seg Neutrophils # Man Lymphocytes # (Manual) Monocytes # (Manual) Eosinophils # (Manual) Basophils # (Manual) PT INR APTT ABG pH ABG pO2 ABG HCO3 ABG O2 Saturation ABG Base Excess ABG Hemoglobin Oxyhemoglobin Sodium Potassium Chloride Carbon Dioxide 15 L BUN 70 H Creatinine 1.7 H Glucose 153 H POC Glucose 169 H 135 H Lactic Acid Calcium Ionized Calcium Phosphorus Magnesium Total Bilirubin AST ALT Alkaline Phosphatase Ammonia Total Creatine Kinase CK-MB (CK-2) CK-MB (CK-2) Rel Index Total Protein Albumin Urine WBC (Auto) Vancomycin Trough Salicylates Acetaminophen Plasma/Serum Alcohol Crossmatch 12/25/19 12/25/19 12/26/19 17:37 23:29 09:47 WBC 22.1 H RBC 2.83 L Hgb 7.9 L Hct 25.5 L MCH RDW 20.0 H Plt Count 894 H Lymph % (Auto) [place] % (Auto) [place] # Baso # Seg Neutrophils % Seg Neuts % (Manual) Lymphocytes % (Manual) Monocytes % (Manual) Seg Neutrophils # Seg Neutrophils # Man Lymphocytes # (Manual) Monocytes # (Manual) Eosinophils # (Manual) Basophils # (Manual) PT INR APTT ABG pH ABG pO2 ABG HCO3 ABG O2 Saturation ABG Base Excess ABG Hemoglobin Oxyhemoglobin Sodium Potassium Chloride Carbon Dioxide BUN Creatinine Glucose POC Glucose 120 H 140 H Lactic Acid Calcium Ionized Calcium Phosphorus Magnesium Total Bilirubin AST ALT Alkaline Phosphatase Ammonia Total Creatine Kinase CK-MB (CK-2) CK-MB (CK-2) Rel Index Total Protein Albumin Urine WBC (Auto) Vancomycin Trough Salicylates Acetaminophen Plasma/Serum Alcohol Crossmatch 12/26/19 12/26/19 12/26/19 09:47 11:46 17:52 WBC RBC Hgb Hct MCH RDW Plt Count Lymph % (Auto) [place] % (Auto) [place] # Baso # Seg Neutrophils % Seg Neuts % (Manual) Lymphocytes % (Manual) Monocytes % (Manual) Seg Neutrophils # Seg Neutrophils # Man Lymphocytes # (Manual) Monocytes # (Manual) Eosinophils # (Manual) Basophils # (Manual) PT INR APTT ABG pH ABG pO2 ABG HCO3 ABG O2 Saturation ABG Base Excess ABG Hemoglobin Oxyhemoglobin Sodium Potassium Chloride Carbon Dioxide 18 L BUN 65 H Creatinine 1.4 H Glucose 132 H POC Glucose 110 H 145 H Lactic Acid Calcium Ionized Calcium Phosphorus Magnesium Total Bilirubin AST ALT Alkaline Phosphatase Ammonia Total Creatine Kinase CK-MB (CK-2) CK-MB (CK-2) Rel Index Total Protein Albumin Urine WBC (Auto) Vancomycin Trough Salicylates Acetaminophen Plasma/Serum Alcohol Crossmatch 12/27/19 12/27/19 12/27/19 00:01 03:42 03:42 WBC 18.0 H RBC 2.86 L Hgb 8.0 L Hct 25.2 L MCH RDW 19.2 H Plt Count 873 H Lymph % (Auto) 8.4 L [place] % (Auto) 7.5 H [place] # 1.4 H Baso # 0.2 H Seg Neutrophils % 82.2 H Seg Neuts % (Manual) Lymphocytes % (Manual) Monocytes % (Manual) Seg Neutrophils # 14.8 H Seg Neutrophils # Man Lymphocytes # (Manual) Monocytes # (Manual) Eosinophils # (Manual) Basophils # (Manual) PT INR APTT ABG pH ABG pO2 ABG HCO3 ABG O2 Saturation ABG Base Excess ABG Hemoglobin Oxyhemoglobin Sodium Potassium Chloride Carbon Dioxide BUN 73 H Creatinine 1.4 H Glucose 119 H POC Glucose 124 H Lactic Acid Calcium Ionized Calcium Phosphorus Magnesium Total Bilirubin AST ALT Alkaline Phosphatase Ammonia Total Creatine Kinase CK-MB (CK-2) CK-MB (CK-2) Rel Index Total Protein Albumin Urine WBC (Auto) Vancomycin Trough Salicylates Acetaminophen Plasma/Serum Alcohol Crossmatch 12/27/19 12/27/19 12/27/19 05:45 11:45 17:29 WBC RBC Hgb Hct MCH RDW Plt Count Lymph % (Auto) [place] % (Auto) [place] # Baso # Seg Neutrophils % Seg Neuts % (Manual) Lymphocytes % (Manual) Monocytes % (Manual) Seg Neutrophils # Seg Neutrophils # Man Lymphocytes # (Manual) Monocytes # (Manual) Eosinophils # (Manual) Basophils # (Manual) PT INR APTT ABG pH ABG pO2 ABG HCO3 ABG O2 Saturation ABG Base Excess ABG Hemoglobin Oxyhemoglobin Sodium Potassium Chloride Carbon Dioxide BUN Creatinine Glucose POC Glucose 131 H 123 H 134 H Lactic Acid Calcium Ionized Calcium Phosphorus Magnesium Total Bilirubin AST ALT Alkaline Phosphatase Ammonia Total Creatine Kinase CK-MB (CK-2) CK-MB (CK-2) Rel Index Total Protein Albumin Urine WBC (Auto) Vancomycin Trough Salicylates Acetaminophen Plasma/Serum Alcohol Crossmatch 12/28/19 12/28/19 12/28/19 00:12 05:14 11:53 WBC RBC Hgb Hct MCH RDW Plt Count Lymph % (Auto) [place] % (Auto) [place] # Baso # Seg Neutrophils % Seg Neuts % (Manual) Lymphocytes % (Manual) Monocytes % (Manual) Seg Neutrophils # Seg Neutrophils # Man Lymphocytes # (Manual) Monocytes # (Manual) Eosinophils # (Manual) Basophils # (Manual) PT INR APTT ABG pH ABG pO2 ABG HCO3 ABG O2 Saturation ABG Base Excess ABG Hemoglobin Oxyhemoglobin Sodium Potassium Chloride Carbon Dioxide BUN Creatinine Glucose POC Glucose 138 H 130 H 146 H Lactic Acid Calcium Ionized Calcium Phosphorus Magnesium Total Bilirubin AST ALT Alkaline Phosphatase Ammonia Total Creatine Kinase CK-MB (CK-2) CK-MB (CK-2) Rel Index Total Protein Albumin Urine WBC (Auto) Vancomycin Trough Salicylates Acetaminophen Plasma/Serum Alcohol Crossmatch 12/28/19 12/29/19 12/29/19 17:39 00:01 18:11 WBC RBC Hgb Hct MCH RDW Plt Count Lymph % (Auto) [place] % (Auto) [place] # Baso # Seg Neutrophils % Seg Neuts % (Manual) Lymphocytes % (Manual) Monocytes % (Manual) Seg Neutrophils # Seg Neutrophils # Man Lymphocytes # (Manual) Monocytes # (Manual) Eosinophils # (Manual) Basophils # (Manual) PT INR APTT ABG pH ABG pO2 ABG HCO3 ABG O2 Saturation ABG Base Excess ABG Hemoglobin Oxyhemoglobin Sodium Potassium Chloride Carbon Dioxide BUN Creatinine Glucose POC Glucose 117 H 139 H 130 H Lactic Acid Calcium Ionized Calcium Phosphorus Magnesium Total Bilirubin AST ALT Alkaline Phosphatase Ammonia Total Creatine Kinase CK-MB (CK-2) CK-MB (CK-2) Rel Index Total Protein Albumin Urine WBC (Auto) Vancomycin Trough Salicylates Acetaminophen Plasma/Serum Alcohol Crossmatch 12/29/19 12/30/19 12/30/19 23:09 00:02 01:06 WBC 16.7 H RBC 2.91 L Hgb 8.2 L Hct 25.4 L MCH RDW 18.7 H Plt Count 708 H Lymph % (Auto) 9.4 L [place] % (Auto) [place] # 0.9 H Baso # Seg Neutrophils % 83.5 H Seg Neuts % (Manual) Lymphocytes % (Manual) Monocytes % (Manual) Seg Neutrophils # 14.0 H Seg Neutrophils # Man Lymphocytes # (Manual) Monocytes # (Manual) Eosinophils # (Manual) Basophils # (Manual) PT INR APTT ABG pH ABG pO2 ABG HCO3 ABG O2 Saturation ABG Base Excess ABG Hemoglobin Oxyhemoglobin Sodium Potassium Chloride Carbon Dioxide BUN Creatinine Glucose POC Glucose 120 H 114 H Lactic Acid Calcium Ionized Calcium Phosphorus Magnesium Total Bilirubin AST ALT Alkaline Phosphatase Ammonia Total Creatine Kinase CK-MB (CK-2) CK-MB (CK-2) Rel Index Total Protein Albumin Urine WBC (Auto) Vancomycin Trough Salicylates Acetaminophen Plasma/Serum Alcohol Crossmatch 12/30/19 12/30/19 12/30/19 01:06 04:23 05:18 WBC RBC Hgb Hct MCH RDW Plt Count Lymph % (Auto) [place] % (Auto) [place] # Baso # Seg Neutrophils % Seg Neuts % (Manual) Lymphocytes % (Manual) Monocytes % (Manual) Seg Neutrophils # Seg Neutrophils # Man Lymphocytes # (Manual) Monocytes # (Manual) Eosinophils # (Manual) Basophils # (Manual) PT INR APTT ABG pH ABG pO2 ABG HCO3 ABG O2 Saturation ABG Base Excess ABG Hemoglobin 8.3 L Oxyhemoglobin Sodium Potassium Chloride Carbon Dioxide BUN 70 H Creatinine Glucose 122 H POC Glucose 130 H Lactic Acid Calcium Ionized Calcium Phosphorus Magnesium Total Bilirubin AST ALT Alkaline Phosphatase Ammonia Total Creatine Kinase CK-MB (CK-2) CK-MB (CK-2) Rel Index Total Protein Albumin Urine WBC (Auto) Vancomycin Trough Salicylates Acetaminophen Plasma/Serum Alcohol Crossmatch 12/30/19 12/30/19 12/30/19 05:40 12:17 17:43 WBC RBC Hgb Hct MCH RDW Plt Count Lymph % (Auto) [place] % (Auto) [place] # Baso # Seg Neutrophils % Seg Neuts % (Manual) Lymphocytes % (Manual) Monocytes % (Manual) Seg Neutrophils # Seg Neutrophils # Man Lymphocytes # (Manual) Monocytes # (Manual) Eosinophils # (Manual) Basophils # (Manual) PT INR APTT ABG pH ABG pO2 ABG HCO3 ABG O2 Saturation ABG Base Excess ABG Hemoglobin Oxyhemoglobin Sodium Potassium Chloride Carbon Dioxide BUN Creatinine Glucose POC Glucose 135 H 132 H 118 H Lactic Acid Calcium Ionized Calcium Phosphorus Magnesium Total Bilirubin AST ALT Alkaline Phosphatase Ammonia Total Creatine Kinase CK-MB (CK-2) CK-MB (CK-2) Rel Index Total Protein Albumin Urine WBC (Auto) Vancomycin Trough Salicylates Acetaminophen Plasma/Serum Alcohol Crossmatch 12/30/19 12/31/19 12/31/19 23:29 05:19 17:50 WBC RBC Hgb Hct MCH RDW Plt Count Lymph % (Auto) [place] % (Auto) [place] # Baso # Seg Neutrophils % Seg Neuts % (Manual) Lymphocytes % (Manual) Monocytes % (Manual) Seg Neutrophils # Seg Neutrophils # Man Lymphocytes # (Manual) Monocytes # (Manual) Eosinophils # (Manual) Basophils # (Manual) PT INR APTT ABG pH ABG pO2 ABG HCO3 ABG O2 Saturation ABG Base Excess ABG Hemoglobin Oxyhemoglobin Sodium Potassium Chloride Carbon Dioxide BUN Creatinine Glucose POC Glucose 114 H 109 H 116 H Lactic Acid Calcium Ionized Calcium Phosphorus Magnesium Total Bilirubin AST ALT Alkaline Phosphatase Ammonia Total Creatine Kinase CK-MB (CK-2) CK-MB (CK-2) Rel Index Total Protein Albumin Urine WBC (Auto) Vancomycin Trough Salicylates Acetaminophen Plasma/Serum Alcohol Crossmatch 01/01/20 01/01/20 01/01/20 00:10 05:19 12:02 WBC RBC Hgb Hct MCH RDW Plt Count Lymph % (Auto) [place] % (Auto) [place] # Baso # Seg Neutrophils % Seg Neuts % (Manual) Lymphocytes % (Manual) Monocytes % (Manual) Seg Neutrophils # Seg Neutrophils # Man Lymphocytes # (Manual) Monocytes # (Manual) Eosinophils # (Manual) Basophils # (Manual) PT INR APTT ABG pH ABG pO2 ABG HCO3 ABG O2 Saturation ABG Base Excess ABG Hemoglobin Oxyhemoglobin Sodium Potassium Chloride Carbon Dioxide BUN Creatinine Glucose POC Glucose 131 H 122 H 136 H Lactic Acid Calcium Ionized Calcium Phosphorus Magnesium Total Bilirubin AST ALT Alkaline Phosphatase Ammonia Total Creatine Kinase CK-MB (CK-2) CK-MB (CK-2) Rel Index Total Protein Albumin Urine WBC (Auto) Vancomycin Trough Salicylates Acetaminophen Plasma/Serum Alcohol Crossmatch 01/02/20 01/02/20 01/02/20 00:24 05:36 11:41 WBC RBC Hgb Hct MCH RDW Plt Count Lymph % (Auto) [place] % (Auto) [place] # Baso # Seg Neutrophils % Seg Neuts % (Manual) Lymphocytes % (Manual) Monocytes % (Manual) Seg Neutrophils # Seg Neutrophils # Man Lymphocytes # (Manual) Monocytes # (Manual) Eosinophils # (Manual) Basophils # (Manual) PT INR APTT ABG pH ABG pO2 ABG HCO3 ABG O2 Saturation ABG Base Excess ABG Hemoglobin Oxyhemoglobin Sodium Potassium Chloride Carbon Dioxide BUN Creatinine Glucose POC Glucose 119 H 109 H 125 H Lactic Acid Calcium Ionized Calcium Phosphorus Magnesium Total Bilirubin AST ALT Alkaline Phosphatase Ammonia Total Creatine Kinase CK-MB (CK-2) CK-MB (CK-2) Rel Index Total Protein Albumin Urine WBC (Auto) Vancomycin Trough Salicylates Acetaminophen Plasma/Serum Alcohol Crossmatch 01/02/20 01/03/20 01/03/20 17:49 05:29 12:13 WBC RBC Hgb Hct MCH RDW Plt Count Lymph % (Auto) [place] % (Auto) [place] # Baso # Seg Neutrophils % Seg Neuts % (Manual) Lymphocytes % (Manual) Monocytes % (Manual) Seg Neutrophils # Seg Neutrophils # Man Lymphocytes # (Manual) Monocytes # (Manual) Eosinophils # (Manual) Basophils # (Manual) PT INR APTT ABG pH ABG pO2 ABG HCO3 ABG O2 Saturation ABG Base Excess ABG Hemoglobin Oxyhemoglobin Sodium Potassium Chloride Carbon Dioxide BUN Creatinine Glucose POC Glucose 130 H 132 H 113 H Lactic Acid Calcium Ionized Calcium Phosphorus Magnesium Total Bilirubin AST ALT Alkaline Phosphatase Ammonia Total Creatine Kinase CK-MB (CK-2) CK-MB (CK-2) Rel Index Total Protein Albumin Urine WBC (Auto) Vancomycin Trough Salicylates Acetaminophen Plasma/Serum Alcohol Crossmatch 01/03/20 01/04/20 01/04/20 17:32 00:19 05:26 WBC RBC Hgb Hct MCH RDW Plt Count Lymph % (Auto) [place] % (Auto) [place] # Baso # Seg Neutrophils % Seg Neuts % (Manual) Lymphocytes % (Manual) Monocytes % (Manual) Seg Neutrophils # Seg Neutrophils # Man Lymphocytes # (Manual) Monocytes # (Manual) Eosinophils # (Manual) Basophils # (Manual) PT INR APTT ABG pH ABG pO2 ABG HCO3 ABG O2 Saturation ABG Base Excess ABG Hemoglobin Oxyhemoglobin Sodium Potassium Chloride Carbon Dioxide BUN Creatinine Glucose POC Glucose 127 H 141 H 129 H Lactic Acid Calcium Ionized Calcium Phosphorus Magnesium Total Bilirubin AST ALT Alkaline Phosphatase Ammonia Total Creatine Kinase CK-MB (CK-2) CK-MB (CK-2) Rel Index Total Protein Albumin Urine WBC (Auto) Vancomycin Trough Salicylates Acetaminophen Plasma/Serum Alcohol Crossmatch 01/04/20 01/04/20 01/05/20 11:39 17:29 05:22 WBC RBC Hgb Hct MCH RDW Plt Count Lymph % (Auto) [place] % (Auto) [place] # Baso # Seg Neutrophils % Seg Neuts % (Manual) Lymphocytes % (Manual) Monocytes % (Manual) Seg Neutrophils # Seg Neutrophils # Man Lymphocytes # (Manual) Monocytes # (Manual) Eosinophils # (Manual) Basophils # (Manual) PT INR APTT ABG pH ABG pO2 ABG HCO3 ABG O2 Saturation ABG Base Excess ABG Hemoglobin Oxyhemoglobin Sodium Potassium Chloride Carbon Dioxide BUN Creatinine Glucose POC Glucose 167 H 132 H 121 H Lactic Acid Calcium Ionized Calcium Phosphorus Magnesium Total Bilirubin AST ALT Alkaline Phosphatase Ammonia Total Creatine Kinase CK-MB (CK-2) CK-MB (CK-2) Rel Index Total Protein Albumin Urine WBC (Auto) Vancomycin Trough Salicylates Acetaminophen Plasma/Serum Alcohol Crossmatch 01/05/20 01/05/20 01/05/20 12:25 17:40 18:06 WBC RBC Hgb Hct MCH RDW Plt Count Lymph % (Auto) [place] % (Auto) [place] # Baso # Seg Neutrophils % Seg Neuts % (Manual) Lymphocytes % (Manual) Monocytes % (Manual) Seg Neutrophils # Seg Neutrophils # Man Lymphocytes # (Manual) Monocytes # (Manual) Eosinophils # (Manual) Basophils # (Manual) PT INR APTT ABG pH 7.472 H ABG pO2 99.2 H ABG HCO3 ABG O2 Saturation ABG Base Excess ABG Hemoglobin 7.8 L Oxyhemoglobin Sodium Potassium Chloride Carbon Dioxide BUN Creatinine Glucose POC Glucose 106 H 110 H Lactic Acid Calcium Ionized Calcium Phosphorus Magnesium Total Bilirubin AST ALT Alkaline Phosphatase Ammonia Total Creatine Kinase CK-MB (CK-2) CK-MB (CK-2) Rel Index Total Protein Albumin Urine WBC (Auto) Vancomycin Trough Salicylates Acetaminophen Plasma/Serum Alcohol Crossmatch 01/06/20 01/06/20 01/06/20 00:11 05:16 11:30 WBC RBC Hgb Hct MCH RDW Plt Count Lymph % (Auto) [place] % (Auto) [place] # Baso # Seg Neutrophils % Seg Neuts % (Manual) Lymphocytes % (Manual) Monocytes % (Manual) Seg Neutrophils # Seg Neutrophils # Man Lymphocytes # (Manual) Monocytes # (Manual) Eosinophils # (Manual) Basophils # (Manual) PT INR APTT ABG pH ABG pO2 ABG HCO3 ABG O2 Saturation ABG Base Excess ABG Hemoglobin Oxyhemoglobin Sodium Potassium Chloride Carbon Dioxide BUN Creatinine Glucose POC Glucose 108 H 124 H 125 H Lactic Acid Calcium Ionized Calcium Phosphorus Magnesium Total Bilirubin AST ALT Alkaline Phosphatase Ammonia Total Creatine Kinase CK-MB (CK-2) CK-MB (CK-2) Rel Index Total Protein Albumin Urine WBC (Auto) Vancomycin Trough Salicylates Acetaminophen Plasma/Serum Alcohol Crossmatch 01/06/20 01/06/20 01/07/20 17:53 23:51 04:12 WBC 16.5 H RBC 3.29 L Hgb 9.3 L Hct 28.1 L MCH RDW 18.2 H Plt Count 526 H Lymph % (Auto) 8.4 L [place] % (Auto) [place] # 1.0 H Baso # Seg Neutrophils % 84.4 H Seg Neuts % (Manual) Lymphocytes % (Manual) Monocytes % (Manual) Seg Neutrophils # 13.9 H Seg Neutrophils # Man Lymphocytes # (Manual) Monocytes # (Manual) Eosinophils # (Manual) Basophils # (Manual) PT INR APTT ABG pH ABG pO2 ABG HCO3 ABG O2 Saturation ABG Base Excess ABG Hemoglobin Oxyhemoglobin Sodium Potassium Chloride Carbon Dioxide BUN Creatinine Glucose POC Glucose 166 H 128 H Lactic Acid Calcium Ionized Calcium Phosphorus Magnesium Total Bilirubin AST ALT Alkaline Phosphatase Ammonia Total Creatine Kinase CK-MB (CK-2) CK-MB (CK-2) Rel Index Total Protein Albumin Urine WBC (Auto) Vancomycin Trough Salicylates Acetaminophen Plasma/Serum Alcohol Crossmatch 01/07/20 01/07/20 01/07/20 04:12 04:45 11:51 WBC RBC Hgb Hct MCH RDW Plt Count Lymph % (Auto) [place] % (Auto) [place] # Baso # Seg Neutrophils % Seg Neuts % (Manual) Lymphocytes % (Manual) Monocytes % (Manual) Seg Neutrophils # Seg Neutrophils # Man Lymphocytes # (Manual) Monocytes # (Manual) Eosinophils # (Manual) Basophils # (Manual) PT INR APTT ABG pH ABG pO2 ABG HCO3 ABG O2 Saturation ABG Base Excess ABG Hemoglobin Oxyhemoglobin Sodium 136 L Potassium Chloride Carbon Dioxide 21 L BUN 44 H Creatinine 0.6 L Glucose 124 H POC Glucose 134 H 138 H Lactic Acid Calcium Ionized Calcium Phosphorus Magnesium Total Bilirubin AST ALT Alkaline Phosphatase Ammonia Total Creatine Kinase CK-MB (CK-2) CK-MB (CK-2) Rel Index Total Protein Albumin Urine WBC (Auto) Vancomycin Trough Salicylates Acetaminophen Plasma/Serum Alcohol Crossmatch 01/07/20 01/08/20 01/08/20 17:36 00:33 05:29 WBC RBC Hgb Hct MCH RDW Plt Count Lymph % (Auto) [place] % (Auto) [place] # Baso # Seg Neutrophils % Seg Neuts % (Manual) Lymphocytes % (Manual) Monocytes % (Manual) Seg Neutrophils # Seg Neutrophils # Man Lymphocytes # (Manual) Monocytes # (Manual) Eosinophils # (Manual) Basophils # (Manual) PT INR APTT ABG pH ABG pO2 ABG HCO3 ABG O2 Saturation ABG Base Excess ABG Hemoglobin Oxyhemoglobin Sodium Potassium Chloride Carbon Dioxide BUN Creatinine Glucose POC Glucose 128 H 119 H 124 H Lactic Acid Calcium Ionized Calcium Phosphorus Magnesium Total Bilirubin AST ALT Alkaline Phosphatase Ammonia Total Creatine Kinase CK-MB (CK-2) CK-MB (CK-2) Rel Index Total Protein Albumin Urine WBC (Auto) Vancomycin Trough Salicylates Acetaminophen Plasma/Serum Alcohol Crossmatch 01/08/20 01/08/20 01/08/20 12:51 20:25 23:22 WBC RBC Hgb Hct MCH RDW Plt Count Lymph % (Auto) [place] % (Auto) [place] # Baso # Seg Neutrophils % Seg Neuts % (Manual) Lymphocytes % (Manual) Monocytes % (Manual) Seg Neutrophils # Seg Neutrophils # Man Lymphocytes # (Manual) Monocytes # (Manual) Eosinophils # (Manual) Basophils # (Manual) PT INR APTT ABG pH ABG pO2 132.2 H ABG HCO3 ABG O2 Saturation ABG Base Excess ABG Hemoglobin Oxyhemoglobin Sodium Potassium Chloride Carbon Dioxide BUN Creatinine Glucose POC Glucose 128 H 127 H Lactic Acid Calcium Ionized Calcium Phosphorus Magnesium Total Bilirubin AST ALT Alkaline Phosphatase Ammonia Total Creatine Kinase CK-MB (CK-2) CK-MB (CK-2) Rel Index Total Protein Albumin Urine WBC (Auto) Vancomycin Trough Salicylates Acetaminophen Plasma/Serum Alcohol Crossmatch 01/09/20 01/09/20 01/09/20 05:48 08:51 11:29 WBC RBC Hgb Hct MCH RDW Plt Count Lymph % (Auto) [place] % (Auto) [place] # Baso # Seg Neutrophils % Seg Neuts % (Manual) Lymphocytes % (Manual) Monocytes % (Manual) Seg Neutrophils # Seg Neutrophils # Man Lymphocytes # (Manual) Monocytes # (Manual) Eosinophils # (Manual) Basophils # (Manual) PT INR APTT ABG pH ABG pO2 94.3 H ABG HCO3 ABG O2 Saturation ABG Base Excess ABG Hemoglobin 9.5 L Oxyhemoglobin Sodium Potassium Chloride Carbon Dioxide BUN Creatinine Glucose POC Glucose 120 H 112 H Lactic Acid Calcium Ionized Calcium Phosphorus Magnesium Total Bilirubin AST ALT Alkaline Phosphatase Ammonia Total Creatine Kinase CK-MB (CK-2) CK-MB (CK-2) Rel Index Total Protein Albumin Urine WBC (Auto) Vancomycin Trough Salicylates Acetaminophen Plasma/Serum Alcohol Crossmatch 01/09/20 01/10/20 01/10/20 17:57 05:17 12:28 WBC RBC Hgb Hct MCH RDW Plt Count Lymph % (Auto) [place] % (Auto) [place] # Baso # Seg Neutrophils % Seg Neuts % (Manual) Lymphocytes % (Manual) Monocytes % (Manual) Seg Neutrophils # Seg Neutrophils # Man Lymphocytes # (Manual) Monocytes # (Manual) Eosinophils # (Manual) Basophils # (Manual) PT INR APTT ABG pH ABG pO2 ABG HCO3 ABG O2 Saturation ABG Base Excess ABG Hemoglobin Oxyhemoglobin Sodium Potassium Chloride Carbon Dioxide BUN Creatinine Glucose POC Glucose 122 H 115 H 116 H Lactic Acid Calcium Ionized Calcium Phosphorus Magnesium Total Bilirubin AST ALT Alkaline Phosphatase Ammonia Total Creatine Kinase CK-MB (CK-2) CK-MB (CK-2) Rel Index Total Protein Albumin Urine WBC (Auto) Vancomycin Trough Salicylates Acetaminophen Plasma/Serum Alcohol Crossmatch 01/10/20 01/10/20 01/11/20 18:25 23:47 06:05 WBC RBC Hgb Hct MCH RDW Plt Count Lymph % (Auto) [place] % (Auto) [place] # Baso # Seg Neutrophils % Seg Neuts % (Manual) Lymphocytes % (Manual) Monocytes % (Manual) Seg Neutrophils # Seg Neutrophils # Man Lymphocytes # (Manual) Monocytes # (Manual) Eosinophils # (Manual) Basophils # (Manual) PT INR APTT ABG pH ABG pO2 ABG HCO3 ABG O2 Saturation ABG Base Excess ABG Hemoglobin Oxyhemoglobin Sodium Potassium Chloride Carbon Dioxide BUN Creatinine Glucose POC Glucose 123 H 115 H 151 H Lactic Acid Calcium Ionized Calcium Phosphorus Magnesium Total Bilirubin AST ALT Alkaline Phosphatase Ammonia Total Creatine Kinase CK-MB (CK-2) CK-MB (CK-2) Rel Index Total Protein Albumin Urine WBC (Auto) Vancomycin Trough Salicylates Acetaminophen Plasma/Serum Alcohol Crossmatch 01/11/20 01/11/20 01/11/20 07:00 07:00 12:27 WBC 11.8 H RBC 3.40 L Hgb 9.4 L Hct 29.3 L MCH RDW 18.1 H Plt Count 549 H Lymph % (Auto) [place] % (Auto) 9.1 H [place] # 1.1 H Baso # Seg Neutrophils % 73.3 H Seg Neuts % (Manual) Lymphocytes % (Manual) Monocytes % (Manual) Seg Neutrophils # 8.7 H Seg Neutrophils # Man Lymphocytes # (Manual) Monocytes # (Manual) Eosinophils # (Manual) Basophils # (Manual) PT INR APTT ABG pH ABG pO2 ABG HCO3 ABG O2 Saturation ABG Base Excess ABG Hemoglobin Oxyhemoglobin Sodium 134 L Potassium Chloride 97.7 L Carbon Dioxide 21 L BUN 38 H Creatinine 0.5 L Glucose 168 H POC Glucose 117 H Lactic Acid Calcium 10.5 H Ionized Calcium Phosphorus Magnesium Total Bilirubin AST ALT Alkaline Phosphatase Ammonia Total Creatine Kinase CK-MB (CK-2) CK-MB (CK-2) Rel Index Total Protein Albumin Urine WBC (Auto) Vancomycin Trough Salicylates Acetaminophen Plasma/Serum Alcohol Crossmatch 01/11/20 01/12/20 01/12/20 18:19 00:53 05:24 WBC RBC Hgb Hct MCH RDW Plt Count Lymph % (Auto) [place] % (Auto) [place] # Baso # Seg Neutrophils % Seg Neuts % (Manual) Lymphocytes % (Manual) Monocytes % (Manual) Seg Neutrophils # Seg Neutrophils # Man Lymphocytes # (Manual) Monocytes # (Manual) Eosinophils # (Manual) Basophils # (Manual) PT INR APTT ABG pH ABG pO2 ABG HCO3 ABG O2 Saturation ABG Base Excess ABG Hemoglobin Oxyhemoglobin Sodium Potassium Chloride Carbon Dioxide BUN Creatinine Glucose POC Glucose 126 H 126 H 128 H Lactic Acid Calcium Ionized Calcium Phosphorus Magnesium Total Bilirubin AST ALT Alkaline Phosphatase Ammonia Total Creatine Kinase CK-MB (CK-2) CK-MB (CK-2) Rel Index Total Protein Albumin Urine WBC (Auto) Vancomycin Trough Salicylates Acetaminophen Plasma/Serum Alcohol Crossmatch 01/12/20 01/12/20 01/13/20 13:39 18:02 00:27 WBC RBC Hgb Hct MCH RDW Plt Count Lymph % (Auto) [place] % (Auto) [place] # Baso # Seg Neutrophils % Seg Neuts % (Manual) Lymphocytes % (Manual) Monocytes % (Manual) Seg Neutrophils # Seg Neutrophils # Man Lymphocytes # (Manual) Monocytes # (Manual) Eosinophils # (Manual) Basophils # (Manual) PT INR APTT ABG pH ABG pO2 ABG HCO3 ABG O2 Saturation ABG Base Excess ABG Hemoglobin Oxyhemoglobin Sodium Potassium Chloride Carbon Dioxide BUN Creatinine Glucose POC Glucose 146 H 125 H 131 H Lactic Acid Calcium Ionized Calcium Phosphorus Magnesium Total Bilirubin AST ALT Alkaline Phosphatase Ammonia Total Creatine Kinase CK-MB (CK-2) CK-MB (CK-2) Rel Index Total Protein Albumin Urine WBC (Auto) Vancomycin Trough Salicylates Acetaminophen Plasma/Serum Alcohol Crossmatch 01/13/20 01/13/20 01/13/20 05:44 11:54 17:18 WBC RBC Hgb Hct MCH RDW Plt Count Lymph % (Auto) [place] % (Auto) [place] # Baso # Seg Neutrophils % Seg Neuts % (Manual) Lymphocytes % (Manual) Monocytes % (Manual) Seg Neutrophils # Seg Neutrophils # Man Lymphocytes # (Manual) Monocytes # (Manual) Eosinophils # (Manual) Basophils # (Manual) PT INR APTT ABG pH ABG pO2 ABG HCO3 ABG O2 Saturation ABG Base Excess ABG Hemoglobin Oxyhemoglobin Sodium Potassium Chloride Carbon Dioxide BUN Creatinine Glucose POC Glucose 148 H 140 H 130 H Lactic Acid Calcium Ionized Calcium Phosphorus Magnesium Total Bilirubin AST ALT Alkaline Phosphatase Ammonia Total Creatine Kinase CK-MB (CK-2) CK-MB (CK-2) Rel Index Total Protein Albumin Urine WBC (Auto) Vancomycin Trough Salicylates Acetaminophen Plasma/Serum Alcohol Crossmatch 01/14/20 01/14/20 01/14/20 00:16 05:45 12:19 WBC RBC Hgb Hct MCH RDW Plt Count Lymph % (Auto) [place] % (Auto) [place] # Baso # Seg Neutrophils % Seg Neuts % (Manual) Lymphocytes % (Manual) Monocytes % (Manual) Seg Neutrophils # Seg Neutrophils # Man Lymphocytes # (Manual) Monocytes # (Manual) Eosinophils # (Manual) Basophils # (Manual) PT INR APTT ABG pH ABG pO2 ABG HCO3 ABG O2 Saturation ABG Base Excess ABG Hemoglobin Oxyhemoglobin Sodium Potassium Chloride Carbon Dioxide BUN Creatinine Glucose POC Glucose 125 H 146 H 147 H Lactic Acid Calcium Ionized Calcium Phosphorus Magnesium Total Bilirubin AST ALT Alkaline Phosphatase Ammonia Total Creatine Kinase CK-MB (CK-2) CK-MB (CK-2) Rel Index Total Protein Albumin Urine WBC (Auto) Vancomycin Trough Salicylates Acetaminophen Plasma/Serum Alcohol Crossmatch 01/14/20 01/14/20 01/15/20 18:10 23:54 05:14 WBC RBC Hgb Hct MCH RDW Plt Count Lymph % (Auto) [place] % (Auto) [place] # Baso # Seg Neutrophils % Seg Neuts % (Manual) Lymphocytes % (Manual) Monocytes % (Manual) Seg Neutrophils # Seg Neutrophils # Man Lymphocytes # (Manual) Monocytes # (Manual) Eosinophils # (Manual) Basophils # (Manual) PT INR APTT ABG pH ABG pO2 ABG HCO3 ABG O2 Saturation ABG Base Excess ABG Hemoglobin Oxyhemoglobin Sodium Potassium Chloride Carbon Dioxide BUN Creatinine Glucose POC Glucose 136 H 109 H 111 H Lactic Acid Calcium Ionized Calcium Phosphorus Magnesium Total Bilirubin AST ALT Alkaline Phosphatase Ammonia Total Creatine Kinase CK-MB (CK-2) CK-MB (CK-2) Rel Index Total Protein Albumin Urine WBC (Auto) Vancomycin Trough Salicylates Acetaminophen Plasma/Serum Alcohol Crossmatch 01/15/20 01/15/20 01/16/20 12:34 23:25 05:06 WBC RBC Hgb Hct MCH RDW Plt Count Lymph % (Auto) [place] % (Auto) [place] # Baso # Seg Neutrophils % Seg Neuts % (Manual) Lymphocytes % (Manual) Monocytes % (Manual) Seg Neutrophils # Seg Neutrophils # Man Lymphocytes # (Manual) Monocytes # (Manual) Eosinophils # (Manual) Basophils # (Manual) PT INR APTT ABG pH ABG pO2 ABG HCO3 ABG O2 Saturation ABG Base Excess ABG Hemoglobin Oxyhemoglobin Sodium Potassium Chloride Carbon Dioxide BUN Creatinine Glucose POC Glucose 131 H 120 H 121 H Lactic Acid Calcium Ionized Calcium Phosphorus Magnesium Total Bilirubin AST ALT Alkaline Phosphatase Ammonia Total Creatine Kinase CK-MB (CK-2) CK-MB (CK-2) Rel Index Total Protein Albumin Urine WBC (Auto) Vancomycin Trough Salicylates Acetaminophen Plasma/Serum Alcohol Crossmatch 01/16/20 01/16/20 01/17/20 12:15 23:46 05:32 WBC 13.6 H RBC 3.27 L Hgb 9.3 L Hct 28.5 L MCH RDW 17.0 H Plt Count 490 H Lymph % (Auto) 13.1 L [place] % (Auto) [place] # 1.0 H Baso # Seg Neutrophils % 77.5 H Seg Neuts % (Manual) Lymphocytes % (Manual) Monocytes % (Manual) Seg Neutrophils # 10.5 H Seg Neutrophils # Man Lymphocytes # (Manual) Monocytes # (Manual) Eosinophils # (Manual) Basophils # (Manual) PT INR APTT ABG pH ABG pO2 ABG HCO3 ABG O2 Saturation ABG Base Excess ABG Hemoglobin Oxyhemoglobin Sodium Potassium Chloride Carbon Dioxide BUN Creatinine Glucose POC Glucose 152 H 107 H Lactic Acid Calcium Ionized Calcium Phosphorus Magnesium Total Bilirubin AST ALT Alkaline Phosphatase Ammonia Total Creatine Kinase CK-MB (CK-2) CK-MB (CK-2) Rel Index Total Protein Albumin Urine WBC (Auto) Vancomycin Trough Salicylates Acetaminophen Plasma/Serum Alcohol Crossmatch 01/17/20 01/17/20 01/17/20 06:47 12:16 17:21 WBC RBC Hgb Hct MCH RDW Plt Count Lymph % (Auto) [place] % (Auto) [place] # Baso # Seg Neutrophils % Seg Neuts % (Manual) Lymphocytes % (Manual) Monocytes % (Manual) Seg Neutrophils # Seg Neutrophils # Man Lymphocytes # (Manual) Monocytes # (Manual) Eosinophils # (Manual) Basophils # (Manual) PT INR APTT ABG pH ABG pO2 ABG HCO3 ABG O2 Saturation ABG Base Excess ABG Hemoglobin Oxyhemoglobin Sodium Potassium Chloride Carbon Dioxide BUN Creatinine Glucose POC Glucose 112 H 145 H 150 H Lactic Acid Calcium Ionized Calcium Phosphorus Magnesium Total Bilirubin AST ALT Alkaline Phosphatase Ammonia Total Creatine Kinase CK-MB (CK-2) CK-MB (CK-2) Rel Index Total Protein Albumin Urine WBC (Auto) Vancomycin Trough Salicylates Acetaminophen Plasma/Serum Alcohol Crossmatch 01/17/20 01/18/20 01/18/20 23:34 05:47 12:43 WBC RBC Hgb Hct MCH RDW Plt Count Lymph % (Auto) [place] % (Auto) [place] # Baso # Seg Neutrophils % Seg Neuts % (Manual) Lymphocytes % (Manual) Monocytes % (Manual) Seg Neutrophils # Seg Neutrophils # Man Lymphocytes # (Manual) Monocytes # (Manual) Eosinophils # (Manual) Basophils # (Manual) PT INR APTT ABG pH ABG pO2 ABG HCO3 ABG O2 Saturation ABG Base Excess ABG Hemoglobin Oxyhemoglobin Sodium Potassium Chloride Carbon Dioxide BUN Creatinine Glucose POC Glucose 160 H 130 H 124 H Lactic Acid Calcium Ionized Calcium Phosphorus Magnesium Total Bilirubin AST ALT Alkaline Phosphatase Ammonia Total Creatine Kinase CK-MB (CK-2) CK-MB (CK-2) Rel Index Total Protein Albumin Urine WBC (Auto) Vancomycin Trough Salicylates Acetaminophen Plasma/Serum Alcohol Crossmatch 01/18/20 01/19/20 01/19/20 18:26 00:14 06:24 WBC RBC Hgb Hct MCH RDW Plt Count Lymph % (Auto) [place] % (Auto) [place] # Baso # Seg Neutrophils % Seg Neuts % (Manual) Lymphocytes % (Manual) Monocytes % (Manual) Seg Neutrophils # Seg Neutrophils # Man Lymphocytes # (Manual) Monocytes # (Manual) Eosinophils # (Manual) Basophils # (Manual) PT INR APTT ABG pH ABG pO2 ABG HCO3 ABG O2 Saturation ABG Base Excess ABG Hemoglobin Oxyhemoglobin Sodium Potassium Chloride Carbon Dioxide BUN Creatinine Glucose POC Glucose 119 H 114 H 144 H Lactic Acid Calcium Ionized Calcium Phosphorus Magnesium Total Bilirubin AST ALT Alkaline Phosphatase Ammonia Total Creatine Kinase CK-MB (CK-2) CK-MB (CK-2) Rel Index Total Protein Albumin Urine WBC (Auto) Vancomycin Trough Salicylates Acetaminophen Plasma/Serum Alcohol Crossmatch 01/19/20 01/19/20 01/20/20 12:24 17:50 12:06 WBC RBC Hgb Hct MCH RDW Plt Count Lymph % (Auto) [place] % (Auto) [place] # Baso # Seg Neutrophils % Seg Neuts % (Manual) Lymphocytes % (Manual) Monocytes % (Manual) Seg Neutrophils # Seg Neutrophils # Man Lymphocytes # (Manual) Monocytes # (Manual) Eosinophils # (Manual) Basophils # (Manual) PT INR APTT ABG pH ABG pO2 ABG HCO3 ABG O2 Saturation ABG Base Excess ABG Hemoglobin Oxyhemoglobin Sodium Potassium Chloride Carbon Dioxide BUN Creatinine Glucose POC Glucose 132 H 144 H 135 H Lactic Acid Calcium Ionized Calcium Phosphorus Magnesium Total Bilirubin AST ALT Alkaline Phosphatase Ammonia Total Creatine Kinase CK-MB (CK-2) CK-MB (CK-2) Rel Index Total Protein Albumin Urine WBC (Auto) Vancomycin Trough Salicylates Acetaminophen Plasma/Serum Alcohol Crossmatch 01/21/20 01/21/20 01/21/20 05:46 13:02 23:49 WBC RBC Hgb Hct MCH RDW Plt Count Lymph % (Auto) [place] % (Auto) [place] # Baso # Seg Neutrophils % Seg Neuts % (Manual) Lymphocytes % (Manual) Monocytes % (Manual) Seg Neutrophils # Seg Neutrophils # Man Lymphocytes # (Manual) Monocytes # (Manual) Eosinophils # (Manual) Basophils # (Manual) PT INR APTT ABG pH ABG pO2 ABG HCO3 ABG O2 Saturation ABG Base Excess ABG Hemoglobin Oxyhemoglobin Sodium Potassium Chloride Carbon Dioxide BUN Creatinine Glucose POC Glucose 114 H 136 H 120 H Lactic Acid Calcium Ionized Calcium Phosphorus Magnesium Total Bilirubin AST ALT Alkaline Phosphatase Ammonia Total Creatine Kinase CK-MB (CK-2) CK-MB (CK-2) Rel Index Total Protein Albumin Urine WBC (Auto) Vancomycin Trough Salicylates Acetaminophen Plasma/Serum Alcohol Crossmatch 01/22/20 01/22/20 01/22/20 05:41 11:44 16:31 WBC RBC Hgb Hct MCH RDW Plt Count Lymph % (Auto) [place] % (Auto) [place] # Baso # Seg Neutrophils % Seg Neuts % (Manual) Lymphocytes % (Manual) Monocytes % (Manual) Seg Neutrophils # Seg Neutrophils # Man Lymphocytes # (Manual) Monocytes # (Manual) Eosinophils # (Manual) Basophils # (Manual) PT INR APTT ABG pH ABG pO2 ABG HCO3 ABG O2 Saturation ABG Base Excess ABG Hemoglobin Oxyhemoglobin Sodium Potassium Chloride Carbon Dioxide BUN Creatinine Glucose POC Glucose 124 H 173 H 111 H Lactic Acid Calcium Ionized Calcium Phosphorus Magnesium Total Bilirubin AST ALT Alkaline Phosphatase Ammonia Total Creatine Kinase CK-MB (CK-2) CK-MB (CK-2) Rel Index Total Protein Albumin Urine WBC (Auto) Vancomycin Trough Salicylates Acetaminophen Plasma/Serum Alcohol Crossmatch 01/22/20 01/23/20 01/23/20 23:25 05:15 12:15 WBC RBC Hgb Hct MCH RDW Plt Count Lymph % (Auto) [place] % (Auto) [place] # Baso # Seg Neutrophils % Seg Neuts % (Manual) Lymphocytes % (Manual) Monocytes % (Manual) Seg Neutrophils # Seg Neutrophils # Man Lymphocytes # (Manual) Monocytes # (Manual) Eosinophils # (Manual) Basophils # (Manual) PT INR APTT ABG pH ABG pO2 ABG HCO3 ABG O2 Saturation ABG Base Excess ABG Hemoglobin Oxyhemoglobin Sodium Potassium Chloride Carbon Dioxide BUN Creatinine Glucose POC Glucose 134 H 117 H 129 H Lactic Acid Calcium Ionized Calcium Phosphorus Magnesium Total Bilirubin AST ALT Alkaline Phosphatase Ammonia Total Creatine Kinase CK-MB (CK-2) CK-MB (CK-2) Rel Index Total Protein Albumin Urine WBC (Auto) Vancomycin Trough Salicylates Acetaminophen Plasma/Serum Alcohol Crossmatch 01/23/20 01/23/20 01/23/20 16:58 21:17 23:47 WBC RBC Hgb Hct MCH RDW Plt Count Lymph % (Auto) [place] % (Auto) [place] # Baso # Seg Neutrophils % Seg Neuts % (Manual) Lymphocytes % (Manual) Monocytes % (Manual) Seg Neutrophils # Seg Neutrophils # Man Lymphocytes # (Manual) Monocytes # (Manual) Eosinophils # (Manual) Basophils # (Manual) PT INR APTT ABG pH ABG pO2 ABG HCO3 ABG O2 Saturation ABG Base Excess ABG Hemoglobin Oxyhemoglobin Sodium Potassium Chloride Carbon Dioxide BUN Creatinine Glucose POC Glucose 156 H 185 H 156 H Lactic Acid Calcium Ionized Calcium Phosphorus Magnesium Total Bilirubin AST ALT Alkaline Phosphatase Ammonia Total Creatine Kinase CK-MB (CK-2) CK-MB (CK-2) Rel Index Total Protein Albumin Urine WBC (Auto) Vancomycin Trough Salicylates Acetaminophen Plasma/Serum Alcohol Crossmatch 01/24/20 01/24/20 01/24/20 04:47 04:47 05:59 WBC 17.8 H RBC 3.60 L Hgb Hct MCH RDW 16.2 H Plt Count 688 H Lymph % (Auto) 11.8 L [place] % (Auto) 7.5 H [place] # 1.3 H Baso # Seg Neutrophils % 79.9 H Seg Neuts % (Manual) Lymphocytes % (Manual) Monocytes % (Manual) Seg Neutrophils # 14.2 H Seg Neutrophils # Man Lymphocytes # (Manual) Monocytes # (Manual) Eosinophils # (Manual) Basophils # (Manual) PT INR APTT ABG pH ABG pO2 ABG HCO3 ABG O2 Saturation ABG Base Excess ABG Hemoglobin Oxyhemoglobin Sodium 131 L Potassium Chloride 91.2 L Carbon Dioxide BUN 22 H Creatinine 0.3 L Glucose 123 H POC Glucose 147 H Lactic Acid Calcium 10.9 H Ionized Calcium Phosphorus Magnesium Total Bilirubin AST ALT Alkaline Phosphatase Ammonia Total Creatine Kinase CK-MB (CK-2) CK-MB (CK-2) Rel Index Total Protein Albumin Urine WBC (Auto) Vancomycin Trough Salicylates Acetaminophen Plasma/Serum Alcohol Crossmatch 01/24/20 01/24/20 01/25/20 11:47 16:45 00:18 WBC RBC Hgb Hct MCH RDW Plt Count Lymph % (Auto) [place] % (Auto) [place] # Baso # Seg Neutrophils % Seg Neuts % (Manual) Lymphocytes % (Manual) Monocytes % (Manual) Seg Neutrophils # Seg Neutrophils # Man Lymphocytes # (Manual) Monocytes # (Manual) Eosinophils # (Manual) Basophils # (Manual) PT INR APTT ABG pH ABG pO2 ABG HCO3 ABG O2 Saturation ABG Base Excess ABG Hemoglobin Oxyhemoglobin Sodium Potassium Chloride Carbon Dioxide BUN Creatinine Glucose POC Glucose 114 H 108 H 119 H Lactic Acid Calcium Ionized Calcium Phosphorus Magnesium Total Bilirubin AST ALT Alkaline Phosphatase Ammonia Total Creatine Kinase CK-MB (CK-2) CK-MB (CK-2) Rel Index Total Protein Albumin Urine WBC (Auto) Vancomycin Trough Salicylates Acetaminophen Plasma/Serum Alcohol Crossmatch 01/25/20 01/25/20 01/25/20 07:18 11:58 16:56 WBC RBC Hgb Hct MCH RDW Plt Count Lymph % (Auto) [place] % (Auto) [place] # Baso # Seg Neutrophils % Seg Neuts % (Manual) Lymphocytes % (Manual) Monocytes % (Manual) Seg Neutrophils # Seg Neutrophils # Man Lymphocytes # (Manual) Monocytes # (Manual) Eosinophils # (Manual) Basophils # (Manual) PT INR APTT ABG pH ABG pO2 ABG HCO3 ABG O2 Saturation ABG Base Excess ABG Hemoglobin Oxyhemoglobin Sodium Potassium Chloride Carbon Dioxide BUN Creatinine Glucose POC Glucose 136 H 136 H 147 H Lactic Acid Calcium Ionized Calcium Phosphorus Magnesium Total Bilirubin AST ALT Alkaline Phosphatase Ammonia Total Creatine Kinase CK-MB (CK-2) CK-MB (CK-2) Rel Index Total Protein Albumin Urine WBC (Auto) Vancomycin Trough Salicylates Acetaminophen Plasma/Serum Alcohol Crossmatch 01/26/20 01/26/20 01/26/20 00:29 05:59 05:59 WBC 12.8 H RBC Hgb Hct MCH RDW 16.4 H Plt Count 743 H Lymph % (Auto) [place] % (Auto) [place] # 0.9 H Baso # Seg Neutrophils % 76.2 H Seg Neuts % (Manual) Lymphocytes % (Manual) Monocytes % (Manual) Seg Neutrophils # 9.8 H Seg Neutrophils # Man Lymphocytes # (Manual) Monocytes # (Manual) Eosinophils # (Manual) Basophils # (Manual) PT INR APTT ABG pH ABG pO2 ABG HCO3 ABG O2 Saturation ABG Base Excess ABG Hemoglobin Oxyhemoglobin Sodium 132 L Potassium Chloride 90.9 L Carbon Dioxide BUN 23 H Creatinine 0.4 L Glucose 122 H POC Glucose 107 H Lactic Acid Calcium 11.0 H Ionized Calcium Phosphorus Magnesium Total Bilirubin AST ALT Alkaline Phosphatase Ammonia Total Creatine Kinase CK-MB (CK-2) CK-MB (CK-2) Rel Index Total Protein Albumin Urine WBC (Auto) Vancomycin Trough Salicylates Acetaminophen Plasma/Serum Alcohol Crossmatch 01/26/20 01/26/20 01/26/20 06:27 12:06 16:49 WBC RBC Hgb Hct MCH RDW Plt Count Lymph % (Auto) [place] % (Auto) [place] # Baso # Seg Neutrophils % Seg Neuts % (Manual) Lymphocytes % (Manual) Monocytes % (Manual) Seg Neutrophils # Seg Neutrophils # Man Lymphocytes # (Manual) Monocytes # (Manual) Eosinophils # (Manual) Basophils # (Manual) PT INR APTT ABG pH ABG pO2 ABG HCO3 ABG O2 Saturation ABG Base Excess ABG Hemoglobin Oxyhemoglobin Sodium Potassium Chloride Carbon Dioxide BUN Creatinine Glucose POC Glucose 132 H 132 H 110 H Lactic Acid Calcium Ionized Calcium Phosphorus Magnesium Total Bilirubin AST ALT Alkaline Phosphatase Ammonia Total Creatine Kinase CK-MB (CK-2) CK-MB (CK-2) Rel Index Total Protein Albumin Urine WBC (Auto) Vancomycin Trough Salicylates Acetaminophen Plasma/Serum Alcohol Crossmatch 01/27/20 01/27/20 01/27/20 00:08 11:49 16:24 WBC RBC Hgb Hct MCH RDW Plt Count Lymph % (Auto) [place] % (Auto) [place] # Baso # Seg Neutrophils % Seg Neuts % (Manual) Lymphocytes % (Manual) Monocytes % (Manual) Seg Neutrophils # Seg Neutrophils # Man Lymphocytes # (Manual) Monocytes # (Manual) Eosinophils # (Manual) Basophils # (Manual) PT INR APTT ABG pH ABG pO2 ABG HCO3 ABG O2 Saturation ABG Base Excess ABG Hemoglobin Oxyhemoglobin Sodium Potassium Chloride Carbon Dioxide BUN Creatinine Glucose POC Glucose 107 H 119 H 129 H Lactic Acid Calcium Ionized Calcium Phosphorus Magnesium Total Bilirubin AST ALT Alkaline Phosphatase Ammonia Total Creatine Kinase CK-MB (CK-2) CK-MB (CK-2) Rel Index Total Protein Albumin Urine WBC (Auto) Vancomycin Trough Salicylates Acetaminophen Plasma/Serum Alcohol Crossmatch 01/27/20 01/28/20 01/28/20 18:28 01:00 06:22 WBC RBC Hgb Hct MCH RDW Plt Count Lymph % (Auto) [place] % (Auto) [place] # Baso # Seg Neutrophils % Seg Neuts % (Manual) Lymphocytes % (Manual) Monocytes % (Manual) Seg Neutrophils # Seg Neutrophils # Man Lymphocytes # (Manual) Monocytes # (Manual) Eosinophils # (Manual) Basophils # (Manual) PT INR APTT ABG pH ABG pO2 ABG HCO3 ABG O2 Saturation ABG Base Excess ABG Hemoglobin Oxyhemoglobin Sodium Potassium Chloride Carbon Dioxide BUN Creatinine Glucose POC Glucose 126 H 121 H 114 H Lactic Acid Calcium Ionized Calcium Phosphorus Magnesium Total Bilirubin AST ALT Alkaline Phosphatase Ammonia Total Creatine Kinase CK-MB (CK-2) CK-MB (CK-2) Rel Index Total Protein Albumin Urine WBC (Auto) Vancomycin Trough Salicylates Acetaminophen Plasma/Serum Alcohol Crossmatch 01/28/20 01/28/20 01/29/20 11:47 18:00 00:05 WBC RBC Hgb Hct MCH RDW Plt Count Lymph % (Auto) [place] % (Auto) [place] # Baso # Seg Neutrophils % Seg Neuts % (Manual) Lymphocytes % (Manual) Monocytes % (Manual) Seg Neutrophils # Seg Neutrophils # Man Lymphocytes # (Manual) Monocytes # (Manual) Eosinophils # (Manual) Basophils # (Manual) PT INR APTT ABG pH ABG pO2 ABG HCO3 ABG O2 Saturation ABG Base Excess ABG Hemoglobin Oxyhemoglobin Sodium Potassium Chloride Carbon Dioxide BUN Creatinine Glucose POC Glucose 106 H 117 H 127 H Lactic Acid Calcium Ionized Calcium Phosphorus Magnesium Total Bilirubin AST ALT Alkaline Phosphatase Ammonia Total Creatine Kinase CK-MB (CK-2) CK-MB (CK-2) Rel Index Total Protein Albumin Urine WBC (Auto) Vancomycin Trough Salicylates Acetaminophen Plasma/Serum Alcohol Crossmatch 01/29/20 01/29/20 01/29/20 06:04 11:40 16:38 WBC RBC Hgb Hct MCH RDW Plt Count Lymph % (Auto) [place] % (Auto) [place] # Baso # Seg Neutrophils % Seg Neuts % (Manual) Lymphocytes % (Manual) Monocytes % (Manual) Seg Neutrophils # Seg Neutrophils # Man Lymphocytes # (Manual) Monocytes # (Manual) Eosinophils # (Manual) Basophils # (Manual) PT INR APTT ABG pH ABG pO2 ABG HCO3 ABG O2 Saturation ABG Base Excess ABG Hemoglobin Oxyhemoglobin Sodium Potassium Chloride Carbon Dioxide BUN Creatinine Glucose POC Glucose 147 H 139 H 143 H Lactic Acid Calcium Ionized Calcium Phosphorus Magnesium Total Bilirubin AST ALT Alkaline Phosphatase Ammonia Total Creatine Kinase CK-MB (CK-2) CK-MB (CK-2) Rel Index Total Protein Albumin Urine WBC (Auto) Vancomycin Trough Salicylates Acetaminophen Plasma/Serum Alcohol Crossmatch 01/29/20 01/30/20 01/30/20 23:46 06:43 12:07 WBC RBC Hgb Hct MCH RDW Plt Count Lymph % (Auto) [place] % (Auto) [place] # Baso # Seg Neutrophils % Seg Neuts % (Manual) Lymphocytes % (Manual) Monocytes % (Manual) Seg Neutrophils # Seg Neutrophils # Man Lymphocytes # (Manual) Monocytes # (Manual) Eosinophils # (Manual) Basophils # (Manual) PT INR APTT ABG pH ABG pO2 ABG HCO3 ABG O2 Saturation ABG Base Excess ABG Hemoglobin Oxyhemoglobin Sodium Potassium Chloride Carbon Dioxide BUN Creatinine Glucose POC Glucose 122 H 122 H 134 H Lactic Acid Calcium Ionized Calcium Phosphorus Magnesium Total Bilirubin AST ALT Alkaline Phosphatase Ammonia Total Creatine Kinase CK-MB (CK-2) CK-MB (CK-2) Rel Index Total Protein Albumin Urine WBC (Auto) Vancomycin Trough Salicylates Acetaminophen Plasma/Serum Alcohol Crossmatch 01/30/20 01/31/20 01/31/20 17:59 00:52 05:54 WBC RBC Hgb Hct MCH RDW Plt Count Lymph % (Auto) [place] % (Auto) [place] # Baso # Seg Neutrophils % Seg Neuts % (Manual) Lymphocytes % (Manual) Monocytes % (Manual) Seg Neutrophils # Seg Neutrophils # Man Lymphocytes # (Manual) Monocytes # (Manual) Eosinophils # (Manual) Basophils # (Manual) PT INR APTT ABG pH ABG pO2 ABG HCO3 ABG O2 Saturation ABG Base Excess ABG Hemoglobin Oxyhemoglobin Sodium Potassium Chloride Carbon Dioxide BUN Creatinine Glucose POC Glucose 116 H 127 H 127 H Lactic Acid Calcium Ionized Calcium Phosphorus Magnesium Total Bilirubin AST ALT Alkaline Phosphatase Ammonia Total Creatine Kinase CK-MB (CK-2) CK-MB (CK-2) Rel Index Total Protein Albumin Urine WBC (Auto) Vancomycin Trough Salicylates Acetaminophen Plasma/Serum Alcohol Crossmatch 01/31/20 02/01/20 02/01/20 12:20 00:48 12:21 WBC RBC Hgb Hct MCH RDW Plt Count Lymph % (Auto) [place] % (Auto) [place] # Baso # Seg Neutrophils % Seg Neuts % (Manual) Lymphocytes % (Manual) Monocytes % (Manual) Seg Neutrophils # Seg Neutrophils # Man Lymphocytes # (Manual) Monocytes # (Manual) Eosinophils # (Manual) Basophils # (Manual) PT INR APTT ABG pH ABG pO2 ABG HCO3 ABG O2 Saturation ABG Base Excess ABG Hemoglobin Oxyhemoglobin Sodium Potassium Chloride Carbon Dioxide BUN Creatinine Glucose POC Glucose 126 H 154 H 123 H Lactic Acid Calcium Ionized Calcium Phosphorus Magnesium Total Bilirubin AST ALT Alkaline Phosphatase Ammonia Total Creatine Kinase CK-MB (CK-2) CK-MB (CK-2) Rel Index Total Protein Albumin Urine WBC (Auto) Vancomycin Trough Salicylates Acetaminophen Plasma/Serum Alcohol Crossmatch 02/01/20 02/02/20 02/02/20 23:58 06:08 11:50 WBC RBC Hgb Hct MCH RDW Plt Count Lymph % (Auto) [place] % (Auto) [place] # Baso # Seg Neutrophils % Seg Neuts % (Manual) Lymphocytes % (Manual) Monocytes % (Manual) Seg Neutrophils # Seg Neutrophils # Man Lymphocytes # (Manual) Monocytes # (Manual) Eosinophils # (Manual) Basophils # (Manual) PT INR APTT ABG pH ABG pO2 ABG HCO3 ABG O2 Saturation ABG Base Excess ABG Hemoglobin Oxyhemoglobin Sodium Potassium Chloride Carbon Dioxide BUN Creatinine Glucose POC Glucose 125 H 144 H 131 H Lactic Acid Calcium Ionized Calcium Phosphorus Magnesium Total Bilirubin AST ALT Alkaline Phosphatase Ammonia Total Creatine Kinase CK-MB (CK-2) CK-MB (CK-2) Rel Index Total Protein Albumin Urine WBC (Auto) Vancomycin Trough Salicylates Acetaminophen Plasma/Serum Alcohol Crossmatch 02/02/20 02/03/20 02/03/20 17:53 00:14 05:47 WBC RBC Hgb Hct MCH RDW Plt Count Lymph % (Auto) [place] % (Auto) [place] # Baso # Seg Neutrophils % Seg Neuts % (Manual) Lymphocytes % (Manual) Monocytes % (Manual) Seg Neutrophils # Seg Neutrophils # Man Lymphocytes # (Manual) Monocytes # (Manual) Eosinophils # (Manual) Basophils # (Manual) PT INR APTT ABG pH ABG pO2 ABG HCO3 ABG O2 Saturation ABG Base Excess ABG Hemoglobin Oxyhemoglobin Sodium Potassium Chloride Carbon Dioxide BUN Creatinine Glucose POC Glucose 108 H 122 H 118 H Lactic Acid Calcium Ionized Calcium Phosphorus Magnesium Total Bilirubin AST ALT Alkaline Phosphatase Ammonia Total Creatine Kinase CK-MB (CK-2) CK-MB (CK-2) Rel Index Total Protein Albumin Urine WBC (Auto) Vancomycin Trough Salicylates Acetaminophen Plasma/Serum Alcohol Crossmatch 02/03/20 02/03/20 02/03/20 05:59 05:59 11:49 WBC RBC 3.48 L Hgb Hct 29.9 L MCH RDW 16.2 H Plt Count 707 H Lymph % (Auto) [place] % (Auto) 9.3 H [place] # 0.9 H Baso # Seg Neutrophils % Seg Neuts % (Manual) Lymphocytes % (Manual) Monocytes % (Manual) Seg Neutrophils # Seg Neutrophils # Man Lymphocytes # (Manual) Monocytes # (Manual) Eosinophils # (Manual) Basophils # (Manual) PT INR APTT ABG pH ABG pO2 ABG HCO3 ABG O2 Saturation ABG Base Excess ABG Hemoglobin Oxyhemoglobin Sodium 136 L Potassium Chloride 93.4 L Carbon Dioxide BUN 20 H Creatinine 0.5 L Glucose 101 H POC Glucose 133 H Lactic Acid Calcium 10.8 H Ionized Calcium Phosphorus Magnesium Total Bilirubin AST ALT Alkaline Phosphatase Ammonia Total Creatine Kinase CK-MB (CK-2) CK-MB (CK-2) Rel Index Total Protein Albumin Urine WBC (Auto) Vancomycin Trough Salicylates Acetaminophen Plasma/Serum Alcohol Crossmatch 02/03/20 02/04/20 02/04/20 23:19 05:37 23:56 WBC RBC Hgb Hct MCH RDW Plt Count Lymph % (Auto) [place] % (Auto) [place] # Baso # Seg Neutrophils % Seg Neuts % (Manual) Lymphocytes % (Manual) Monocytes % (Manual) Seg Neutrophils # Seg Neutrophils # Man Lymphocytes # (Manual) Monocytes # (Manual) Eosinophils # (Manual) Basophils # (Manual) PT INR APTT ABG pH ABG pO2 ABG HCO3 ABG O2 Saturation ABG Base Excess ABG Hemoglobin Oxyhemoglobin Sodium Potassium Chloride Carbon Dioxide BUN Creatinine Glucose POC Glucose 135 H 108 H 158 H Lactic Acid Calcium Ionized Calcium Phosphorus Magnesium Total Bilirubin AST ALT Alkaline Phosphatase Ammonia Total Creatine Kinase CK-MB (CK-2) CK-MB (CK-2) Rel Index Total Protein Albumin Urine WBC (Auto) Vancomycin Trough Salicylates Acetaminophen Plasma/Serum Alcohol Crossmatch 02/05/20 02/05/20 02/06/20 05:33 23:24 05:50 WBC RBC Hgb Hct MCH RDW Plt Count Lymph % (Auto) [place] % (Auto) [place] # Baso # Seg Neutrophils % Seg Neuts % (Manual) Lymphocytes % (Manual) Monocytes % (Manual) Seg Neutrophils # Seg Neutrophils # Man Lymphocytes # (Manual) Monocytes # (Manual) Eosinophils # (Manual) Basophils # (Manual) PT INR APTT ABG pH ABG pO2 ABG HCO3 ABG O2 Saturation ABG Base Excess ABG Hemoglobin Oxyhemoglobin Sodium Potassium Chloride Carbon Dioxide BUN Creatinine Glucose POC Glucose 152 H 158 H 110 H Lactic Acid Calcium Ionized Calcium Phosphorus Magnesium Total Bilirubin AST ALT Alkaline Phosphatase Ammonia Total Creatine Kinase CK-MB (CK-2) CK-MB (CK-2) Rel Index Total Protein Albumin Urine WBC (Auto) Vancomycin Trough Salicylates Acetaminophen Plasma/Serum Alcohol Crossmatch 02/06/20 02/07/20 02/07/20 16:03 00:13 05:27 WBC RBC Hgb Hct MCH RDW Plt Count Lymph % (Auto) [place] % (Auto) [place] # Baso # Seg Neutrophils % Seg Neuts % (Manual) Lymphocytes % (Manual) Monocytes % (Manual) Seg Neutrophils # Seg Neutrophils # Man Lymphocytes # (Manual) Monocytes # (Manual) Eosinophils # (Manual) Basophils # (Manual) PT INR APTT ABG pH ABG pO2 ABG HCO3 ABG O2 Saturation ABG Base Excess ABG Hemoglobin Oxyhemoglobin Sodium Potassium Chloride Carbon Dioxide BUN Creatinine Glucose POC Glucose 130 H 115 H 115 H Lactic Acid Calcium Ionized Calcium Phosphorus Magnesium Total Bilirubin AST ALT Alkaline Phosphatase Ammonia Total Creatine Kinase CK-MB (CK-2) CK-MB (CK-2) Rel Index Total Protein Albumin Urine WBC (Auto) Vancomycin Trough Salicylates Acetaminophen Plasma/Serum Alcohol Crossmatch 02/07/20 02/07/20 02/08/20 11:42 17:23 00:37 WBC RBC Hgb Hct MCH RDW Plt Count Lymph % (Auto) [place] % (Auto) [place] # Baso # Seg Neutrophils % Seg Neuts % (Manual) Lymphocytes % (Manual) Monocytes % (Manual) Seg Neutrophils # Seg Neutrophils # Man Lymphocytes # (Manual) Monocytes # (Manual) Eosinophils # (Manual) Basophils # (Manual) PT INR APTT ABG pH ABG pO2 ABG HCO3 ABG O2 Saturation ABG Base Excess ABG Hemoglobin Oxyhemoglobin Sodium Potassium Chloride Carbon Dioxide BUN Creatinine Glucose POC Glucose 113 H 114 H 136 H Lactic Acid Calcium Ionized Calcium Phosphorus Magnesium Total Bilirubin AST ALT Alkaline Phosphatase Ammonia Total Creatine Kinase CK-MB (CK-2) CK-MB (CK-2) Rel Index Total Protein Albumin Urine WBC (Auto) Vancomycin Trough Salicylates Acetaminophen Plasma/Serum Alcohol Crossmatch 02/08/20 02/08/20 02/08/20 08:52 11:42 17:02 WBC RBC Hgb Hct MCH RDW Plt Count Lymph % (Auto) [place] % (Auto) [place] # Baso # Seg Neutrophils % Seg Neuts % (Manual) Lymphocytes % (Manual) Monocytes % (Manual) Seg Neutrophils # Seg Neutrophils # Man Lymphocytes # (Manual) Monocytes # (Manual) Eosinophils # (Manual) Basophils # (Manual) PT INR APTT ABG pH ABG pO2 ABG HCO3 ABG O2 Saturation ABG Base Excess ABG Hemoglobin Oxyhemoglobin Sodium 136 L Potassium Chloride 95.7 L Carbon Dioxide BUN 21 H Creatinine 0.4 L Glucose POC Glucose 128 H 145 H Lactic Acid Calcium 10.4 H Ionized Calcium Phosphorus Magnesium Total Bilirubin AST ALT Alkaline Phosphatase Ammonia Total Creatine Kinase CK-MB (CK-2) CK-MB (CK-2) Rel Index Total Protein Albumin Urine WBC (Auto) Vancomycin Trough Salicylates Acetaminophen Plasma/Serum Alcohol Crossmatch 02/09/20 02/09/20 02/09/20 01:05 11:52 16:19 WBC RBC Hgb Hct MCH RDW Plt Count Lymph % (Auto) [place] % (Auto) [place] # Baso # Seg Neutrophils % Seg Neuts % (Manual) Lymphocytes % (Manual) Monocytes % (Manual) Seg Neutrophils # Seg Neutrophils # Man Lymphocytes # (Manual) Monocytes # (Manual) Eosinophils # (Manual) Basophils # (Manual) PT INR APTT ABG pH ABG pO2 ABG HCO3 ABG O2 Saturation ABG Base Excess ABG Hemoglobin Oxyhemoglobin Sodium Potassium Chloride Carbon Dioxide BUN Creatinine Glucose POC Glucose 117 H 141 H 113 H Lactic Acid Calcium Ionized Calcium Phosphorus Magnesium Total Bilirubin AST ALT Alkaline Phosphatase Ammonia Total Creatine Kinase CK-MB (CK-2) CK-MB (CK-2) Rel Index Total Protein Albumin Urine WBC (Auto) Vancomycin Trough Salicylates Acetaminophen Plasma/Serum Alcohol Crossmatch 02/10/20 02/10/20 02/10/20 05:25 12:50 17:08 WBC RBC Hgb Hct MCH RDW Plt Count Lymph % (Auto) [place] % (Auto) [place] # Baso # Seg Neutrophils % Seg Neuts % (Manual) Lymphocytes % (Manual) Monocytes % (Manual) Seg Neutrophils # Seg Neutrophils # Man Lymphocytes # (Manual) Monocytes # (Manual) Eosinophils # (Manual) Basophils # (Manual) PT INR APTT ABG pH ABG pO2 ABG HCO3 ABG O2 Saturation ABG Base Excess ABG Hemoglobin Oxyhemoglobin Sodium Potassium Chloride Carbon Dioxide BUN Creatinine Glucose POC Glucose 136 H 127 H 111 H Lactic Acid Calcium Ionized Calcium Phosphorus Magnesium Total Bilirubin AST ALT Alkaline Phosphatase Ammonia Total Creatine Kinase CK-MB (CK-2) CK-MB (CK-2) Rel Index Total Protein Albumin Urine WBC (Auto) Vancomycin Trough Salicylates Acetaminophen Plasma/Serum Alcohol Crossmatch 02/10/20 02/11/20 02/11/20 23:55 06:11 12:07 WBC RBC Hgb Hct MCH RDW Plt Count Lymph % (Auto) [place] % (Auto) [place] # Baso # Seg Neutrophils % Seg Neuts % (Manual) Lymphocytes % (Manual) Monocytes % (Manual) Seg Neutrophils # Seg Neutrophils # Man Lymphocytes # (Manual) Monocytes # (Manual) Eosinophils # (Manual) Basophils # (Manual) PT INR APTT ABG pH ABG pO2 ABG HCO3 ABG O2 Saturation ABG Base Excess ABG Hemoglobin Oxyhemoglobin Sodium Potassium Chloride Carbon Dioxide BUN Creatinine Glucose POC Glucose 129 H 128 H 141 H Lactic Acid Calcium Ionized Calcium Phosphorus Magnesium Total Bilirubin AST ALT Alkaline Phosphatase Ammonia Total Creatine Kinase CK-MB (CK-2) CK-MB (CK-2) Rel Index Total Protein Albumin Urine WBC (Auto) Vancomycin Trough Salicylates Acetaminophen Plasma/Serum Alcohol Crossmatch 02/11/20 02/12/20 02/13/20 18:22 02:39 06:45 WBC RBC Hgb Hct MCH RDW Plt Count Lymph % (Auto) [place] % (Auto) [place] # Baso # Seg Neutrophils % Seg Neuts % (Manual) Lymphocytes % (Manual) Monocytes % (Manual) Seg Neutrophils # Seg Neutrophils # Man Lymphocytes # (Manual) Monocytes # (Manual) Eosinophils # (Manual) Basophils # (Manual) PT INR APTT ABG pH ABG pO2 ABG HCO3 ABG O2 Saturation ABG Base Excess ABG Hemoglobin Oxyhemoglobin Sodium Potassium Chloride Carbon Dioxide BUN Creatinine Glucose POC Glucose 118 H 107 H 124 H Lactic Acid Calcium Ionized Calcium Phosphorus Magnesium Total Bilirubin AST ALT Alkaline Phosphatase Ammonia Total Creatine Kinase CK-MB (CK-2) CK-MB (CK-2) Rel Index Total Protein Albumin Urine WBC (Auto) Vancomycin Trough Salicylates Acetaminophen Plasma/Serum Alcohol Crossmatch 02/13/20 02/13/20 02/14/20 12:26 18:19 00:21 WBC RBC Hgb Hct MCH RDW Plt Count Lymph % (Auto) [place] % (Auto) [place] # Baso # Seg Neutrophils % Seg Neuts % (Manual) Lymphocytes % (Manual) Monocytes % (Manual) Seg Neutrophils # Seg Neutrophils # Man Lymphocytes # (Manual) Monocytes # (Manual) Eosinophils # (Manual) Basophils # (Manual) PT INR APTT ABG pH ABG pO2 ABG HCO3 ABG O2 Saturation ABG Base Excess ABG Hemoglobin Oxyhemoglobin Sodium Potassium Chloride Carbon Dioxide BUN Creatinine Glucose POC Glucose 124 H 118 H 130 H Lactic Acid Calcium Ionized Calcium Phosphorus Magnesium Total Bilirubin AST ALT Alkaline Phosphatase Ammonia Total Creatine Kinase CK-MB (CK-2) CK-MB (CK-2) Rel Index Total Protein Albumin Urine WBC (Auto) Vancomycin Trough Salicylates Acetaminophen Plasma/Serum Alcohol Crossmatch
--- NOTE | 2020-02-14 10:47 | Consultation ---
History of Present Illness - Reason for Consult Consult date: 02/14/20 Reason for consult: anxiety - History of Present Psychiatric Illness Flaquito Jesus is a 54y/o female patient who was brought to the hospital for hip pain, and went into cardiac arrest, per medical record. During my interview with the patient this morning, she was lying in bed awake. She has a trach and 02 via trach collar. The nurse placed the passy moe valve in to allow the patient to speak with me. The patient appears anxious. She is confused. The patient could not give any insight into her history. She was able to answer some questions. When asking about thoughts of self harm, the patient replied, "no, no." She also denies hallucinations of any kind. She states to me "I can not breath. Please, I need some air." I called the nurse who came in and assisted the patient back on her oxygen. PAST PSYCHIATRIC HISTORY: Unable to obtain PAST MEDICAL HISTORY: Unable to obtain Family Psychiatric History: Unable to obtain SOCIAL HISTORY Unable to obtain REVIEW OF SYSTEMS Unable to obtain MENTAL STATUS EXAMINATION Unable to obtain Assessment Acute Psychosis MEDICATIONS: No medications started at this time Risks, benefits and alternatives of medications discussed with the patient, questions answered and consent obtained from patient. PSYCHOTHERAPY: Supportive psychotherapy provided MEDICAL: Per primary team DELIRIUM PRECAUTIONS: Please re-orient patient frequently, keep lights on during the day, and minimize benzodiazepines and opiates as these medications could worsen patient's confusion. 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 It is my clinical opinion the patient's mental condition is likely due to complex medical conditions and he would not improve nor benefit from out services at this time. Will sign off. Thank you for the consult. Please contact with any questions and/or concerns. Medications and Allergies Allergies Allergy/AdvReac Type Severity Reaction Status Date / Time No Known Allergies Allergy Verified 03/28/17 11:20 Home Medications Medication Instructions Recorded Confirmed Last Taken Type Folic Acid [Folvite] 1 mg PO QDAY #30 tablet 05/25/18 11/23/19 Unknown Rx Docusate Sodium [Colace CAP] 100 mg PO BID capsule 02/12/20 Unknown Rx Glycopyrrolate [Robinul] 2 mg PO TID tablet 02/12/20 Unknown Rx Lansoprazole Solutab [Prevacid 30 mg FEEDTUBE QDAY tab.rapdis 02/12/20 Unknown Rx Solutab] Levalbuterol [Xopenex] 0.63 mg IH Q6HRT nebu 02/12/20 Unknown Rx Lipase/Protease/Amylase [Pancreaze 1 each FEEDTUBE PRN PRN capsule 02/12/20 Unknown Rx 10,500 Unit] Mirtazapine [Remeron 30mg TAB] 30 mg PO DAILY tablet 02/12/20 Unknown Rx QUEtiapine [SEROquel] 100 mg FEEDTUBE QHS tablet 02/12/20 Unknown Rx Scopolamine [Transderm-Scop] 1 each TD Q3D patch 02/12/20 Unknown Rx Sertraline [Zoloft] 25 mg PO QDAY tablet 02/12/20 Unknown Rx Tamsulosin [Flomax] 0.4 mg PO QDAY capsule 02/12/20 Unknown Rx bisacodyL [Dulcolax suppos] 10 mg PA QDAY PRN supp.rect 02/12/20 Unknown Rx hydrOXYzine PAMOATE [Vistaril] 25 mg PO BID capsule 02/12/20 Unknown Rx levETIRAcetam [Keppra] 500 mg PO BID oral.liqd 02/12/20 Unknown Rx polyethylene glycoL 3350 [Miralax 17 gm PO QDAY PRN powd.pack 02/12/20 Unknown Rx 3350] Active Meds: Active Medications Acetaminophen (Tylenol) 650 mg FEEDTUBE Q6H PRN PRN Reason: TEMP >/=100.3 Last Admin: 02/13/20 22:01 Dose: 650 mg Documented by: Lipase/Protease/Amylase (Radhika Crenshaw 10,500 Unit) 1 each FEEDTUBE PRN PRN PRN Reason: Use w/ sod bicarb for FT Bisacodyl (Dulcolax) 10 mg PA QDAY PRN PRN Reason: Constipation unrelieved by MOM Docusate Sodium (Colace) 100 mg PO BID ON LICENSE OF [facility] Last Admin: 02/13/20 22:03 Dose: Not Given Documented by: Glycopyrrolate (Robinul) 2 mg PO TID ON LICENSE OF [facility] Last Admin: 02/13/20 22:02 Dose: 2 mg Documented by: Hydralazine HCl (Apresoline) 10 mg IV Q6H PRN PRN Reason: SBP > 160 Last Admin: 12/18/19 13:25 Dose: 10 mg Documented by: Hydroxyzine Pamoate (Vistaril) 25 mg PO BID ON LICENSE OF [facility] Last Admin: 02/13/20 22:02 Dose: 25 mg Documented by: Lansoprazole (Prevacid Solutab) 30 mg FEEDTUBE QDAY ON LICENSE OF [facility] Last Admin: 02/13/20 11:41 Dose: 30 mg Documented by: Levalbuterol HCl (Xopenex) 0.63 mg IH Q6HRT ON LICENSE OF [facility] Last Admin: 02/14/20 08:40 Dose: 0.63 mg Documented by: Levetiracetam (Keppra) 500 mg PO BID ON LICENSE OF [facility] Last Admin: 02/13/20 22:01 Dose: 500 mg Documented by: Mirtazapine (Remeron) 30 mg PO DAILY ON LICENSE OF [facility] Last Admin: 02/13/20 11:42 Dose: 30 mg Documented by: Ondansetron HCl (Zofran) 4 mg IV Q4H PRN PRN Reason: Nausea And Vomiting Last Admin: 02/05/20 22:06 Dose: 4 mg Documented by: Polyethylene Glycol (Miralax 3350) 17 gm PO QDAY PRN PRN Reason: Constipation Quetiapine Fumarate (Seroquel) 100 mg FEEDTUBE QHS ON LICENSE OF [facility] Last Admin: 02/13/20 22:02 Dose: 100 mg Documented by: Scopolamine (Transderm-Scop) 1 each TD Q3D ON LICENSE OF [facility] Last Admin: 02/11/20 14:59 Dose: 1 each Documented by: Sertraline HCl (Zoloft) 25 mg PO QDAY ON LICENSE OF [facility] Last Admin: 02/13/20 11:41 Dose: 25 mg Documented by: Simple Syrup (Simple Syrup) 15 ml FEEDTUBE PRN PRN PRN Reason: Hypoglycemia BG<70 Simple Syrup (Simple Syrup) 30 ml FEEDTUBE PRN PRN PRN Reason: Hypoglycemia Sodium Bicarbonate (Sodium Bicarbonate) 325 mg FEEDTUBE PRN PRN PRN Reason: For Clogged Feeding Tube Mental Status Exam - Vital signs Last Vital Signs Temp 98.9 F 02/14/20 07:31 Pulse 99 H 02/14/20 07:31 Resp 18 02/14/20 07:31 BP 109/70 02/14/20 07:31 Pulse Ox 98 02/14/20 07:31 Results Result Diagrams: 02/08/20 07:55 02/08/20 08:52 Abnormal lab results 02/13/20 02/13/20 02/14/20 Range/Units 12:26 18:19 00:21 POC Glucose 124 H 118 H 130 H (70-105) All other labs normal.
[2020-02-14] MEDS: hydrOXYzine PAMOATE 25 MG CAP PO SCH ×2 (11:03→22:10)
[2020-02-14] MEDS: MIRTAZAPINE 30 MG TAB PO SCH (11:04)
[2020-02-14] MEDS: levETIRAcetam 500 MG/5 ML ORAL LIQD PO SCH ×2 (11:04→22:09)
[2020-02-14] MEDS: SERTRALINE 50 MG TAB PO SCH (11:04)
[2020-02-14] MEDS: GLYCOPYRROLATE 1 MG TAB PO SCH ×3 (11:05→22:09)
[2020-02-14] MEDS: LANSOPRAZOLE 30 MG SOLUTAB FEEDTUBE SCH (11:05)
[2020-02-14] MEDS: DOCUSATE SODIUM 100 MG CAP PO SCH ×2 (11:06→22:09)
--- NOTE | 2020-02-14 12:48 | Progress Note ---
Assessment and Plan Assessment and plan: 54-year-old female with a past medical history of Hypertension, Depression, Tobacco use Disorder, Alcohol use Disorder as confirmed by Daughter and pt's mother presents to the hospital status post cardiac arrest. Patient is from home and family called EMS at 22: 27 for the pt who had told family members that she was not feeling good and c/o her chronic hip pain. She urinated and then was speaking, then she " froze and was rigid " per daughter and she became unresponsive and stopped breathing. Immediately, family began CPR. EMS found pt in PEA. Upon their arrival patient in SinuS Tachycardia.. They were unable to intubate patient with a ET tube because she was clenching down therefore Joe airway placed. Patient received Narcan and Epinephrine. Patient's rhythm changed to PEA to sinus bradycardia, to PEA, then to sinus tach after receiving Narcan and Epinephrine. Per the ED physician who evaluated pt, Patient presented with a pulse, intermittent respirations, and bagging support via Joe airway with O2 sat of 100%. Accu-Chek of 71 obtained by EMS Following admission patient was diagnosed with anoxic brain injury, sepsis with MRSA bacteremia and MSSA pneumonia, alcoholic liver disease. Family member initially wished for full code then changed to DNR, patient treated with IV a ntibiotics for sepsis, status post trach and PEG on 12/13/19. Weaned off from the vent and put on T-piece. Patient is uninsured, waiting for placement, guarded prognosis. Dr. Rodriguez spoke to patient's family (daughter and mother). MOther is Anh Jesus- [phone] and she would like to be called about pt's progress or notified about the pt. No seizure activity was noted. They deny that patient had any preceding infection symptoms, cough, fever, complaints of chest pain, shortness of breath, or any bleeding diathesis, melena, hematochezia, hematuria, hematemesis, or abdominal pain. Patient is a known alcoholic and continues to drink per daughter. No history could be obtained from the pt due to her mechanical ventilation. No previous hx of DVT/PE per mother and daughter. 02/13/2020 continue aggressive pulmonary toilet. Agree with addition of Mucomyst every 72 hours. Continue wound care. Awaiting discussion with family about CODE STATUS this has been initiated by the pulmonary doctor have also advised that I am available if the family would like to combine the hospital. Will obtain psych evaluation for anxiety which is understandable in the patient's current medical condition. 02/13: No clinical change. Continue aggressive therapy and weaning, Pulmonary toilet. / Anoxic brain injury: suspected CT head: No acute abnormality. EEG ordered showed Generalized slowing. No seizures or epileptiform activity. -Patient now opening her eyes, can speak and able to follow minor command by nodding head /Acute Respiratory failure with hypoxia -s/p Tracheostomy Status post cardiac arrest -s/p intubation, s/p trach and PEG on 12/12 with mechanical ventilation, now on T-piece - CTA was done and negative for PE, - Echo quality is poor, showed diastolic dysfunction - continue weaning as tolerated /Oropharyngeal dysphagia s/p PEG /Persistent Tachycardia -Check TSH and Free T4 /BHAVANA secondary to vasomotor nephropathy /Anemia, microcytic - Status post 3 units PRBC transfusion, H&H low stable /Acute metabolic encephalopathy/toxic encephalopathy due to the above - cont supportive care /Hyperammonemia - likely from liver disease related to EtOH abuse - Patient had elevated ammonia level and treated with lactulose /Metabolic Acidosis -Alcohol ketoacidosis vs hypoprofusion -Continue to monitor /Acute cystitis /ELevated LFTs, stable now - due to ischemic hepatitis. /Leucocytosis with sepsis - Source MRSA bacteremia and MSSA pneumonia. UA showed pyuria. RUQ US showed no ascites. - Repeat TTE negative for vegetation. Completed 7 days of Ceftriaxone on 11/29/2019. -Treated with Abx vancomycin 1 gm IV q 12 hour total 2 week till 12/30/2019 /MSSA pneumonia: Status post vancomycin till 12/30/2019 /ALcohol USe Disorder - given ongoing Alcohol use almost daily, s/p IV Thiamine - monitor /Severe hypokalemia -Repleted /Seizure disorder: treat with Keppra /H. Influenzae, tracheobronchitis, treated with abx /Moderate to severe fecal impaction - will add stool softner /Anxiety disorder: Psych consulted DNR CODE STATUS Disposition: prognosis guarded. Family okay for DNR, PT recommended subacute rehab, discharge pending on placement. negative for COVID 19 Awaiting Placement to SNF History Interval history: Patient seen and examined, awake, continues to make remarkable improvement still on restraints due to impulsive trying to get out of bed. Hospitalist Physical - Physical exam Narrative exam: General appearance: Present: no acute distress - EENT Eyes: PERRL ENT: hearing intact, clear oral mucosa, other (increased secretions.) - Neck Neck: supple, normal ROM - Respiratory Respiratory: bilateral: CTA, diminished - Breasts Breasts: normal - Cardiovascular Rhythm: regular Extremities: pulses intact, No edema, normal color, Full ROM - Gastrointestinal General gastrointestinal: Present: soft, non-tender, non-distended, normal bowel sounds, hypoactive bowel sounds - Genitourinary Female genitourinary: normal - Integumentary Integumentary: See wound care documentation days of trach - Musculoskeletal Musculoskeletal: generalized weakness - Neurologic Neurologic: focal deficits, intermittent confusion - Constitutional Vitals: Temp Pulse Resp BP Pulse Ox 98.9 F 99 H 18 109/70 98 02/14/20 07:31 02/14/20 07:31 02/14/20 07:31 02/14/20 07:31 02/14/20 07:31 General appearance: Present: no acute distress HEART Score - HEART Score Troponin: Troponin T < 0.010 ng/mL (0.00-0.029) 11/22/19 23:27 Results - Labs CBC & Chem 7: 02/08/20 07:55 02/08/20 08:52 Labs: Laboratory Last Values WBC 9.3 K/mm3 (4.5-11.0) 02/03/20 05:59 RBC 3.48 M/mm3 (3.65-5.03) L 02/03/20 05:59 Hgb 10.7 gm/dl (10.1-14.3) 02/08/20 07:55 Hct 31.7 % (30.3-42.9) 02/08/20 07:55 MCV 86 fl (79-97) 02/03/20 05:59 MCH 29 pg (28-32) 02/03/20 05:59 MCHC 34 % (30-34) 02/03/20 05:59 RDW 16.2 % (13.2-15.2) H 02/03/20 05:59 Plt Count 707 K/mm3 (140-440) H 02/03/20 05:59 Lymph % (Auto) 20.2 % (13.4-35.0) 02/03/20 05:59 [place] % (Auto) 9.3 % (0.0-7.3) H 02/03/20 05:59 Eos % (Auto) 2.5 % (0.0-4.3) 02/03/20 05:59 Baso % (Auto) 0.6 % (0.0-1.8) 02/03/20 05:59 Lymph # 1.9 K/mm3 (1.2-5.4) 02/03/20 05:59 [place] # 0.9 K/mm3 (0.0-0.8) H 02/03/20 05:59 Eos # 0.2 K/mm3 (0.0-0.4) 02/03/20 05:59 Baso # 0.1 K/mm3 (0.0-0.1) 02/03/20 05:59 Add Manual Diff Complete 12/25/19 03:47 Total Counted 200 12/25/19 03:47 Seg Neutrophils % 67.4 % (40.0-70.0) 02/03/20 05:59 Seg Neuts % (Manual) 97.5 % (40.0-70.0) H 12/25/19 03:47 Band Neutrophils % 0 % 12/25/19 03:47 Lymphocytes % (Manual) 1.0 % (13.4-35.0) L 12/25/19 03:47 Reactive Lymphs % (Man) 0 % 12/25/19 03:47 Monocytes % (Manual) 1.5 % (0.0-7.3) 12/25/19 03:47 Eosinophils % (Manual) 0 % (0.0-4.3) 12/25/19 03:47 Basophils % (Manual) 0 % (0.0-1.8) 12/25/19 03:47 Metamyelocytes % 0 % 12/25/19 03:47 Myelocytes % 0 % 12/25/19 03:47 Promyelocytes % 0 % 12/25/19 03:47 Blast Cells % 0 % 12/25/19 03:47 Nucleated RBC % Not Reportable 12/25/19 03:47 Seg Neutrophils # 6.3 K/mm3 (1.8-7.7) 02/03/20 05:59 Seg Neutrophils # Man 35.3 K/mm3 (1.8-7.7) H 12/25/19 03:47 Band Neutrophils # 0.0 K/mm3 12/25/19 03:47 Lymphocytes # (Manual) 0.4 K/mm3 (1.2-5.4) L 12/25/19 03:47 Abs React Lymphs (Man) 0.0 K/mm3 12/25/19 03:47 Monocytes # (Manual) 0.5 K/mm3 (0.0-0.8) 12/25/19 03:47 Eosinophils # (Manual) 0.0 K/mm3 (0.0-0.4) 12/25/19 03:47 Basophils # (Manual) 0.0 K/mm3 (0.0-0.1) 12/25/19 03:47 Metamyelocytes # 0.0 K/mm3 12/25/19 03:47 Myelocytes # 0.0 K/mm3 12/25/19 03:47 Promyelocytes # 0.0 K/mm3 12/25/19 03:47 Blast Cells # 0.0 K/mm3 12/25/19 03:47 Pathologist Review 12/13/19 07:48 WBC Morphology Not Reportable 12/25/19 03:47 Hypersegmented Neuts Not Reportable 12/25/19 03:47 Hyposegmented Neuts Not Reportable 12/25/19 03:47 Hypogranular Neuts Not Reportable 12/25/19 03:47 Smudge Cells Not Reportable 12/25/19 03:47 Toxic Granulation Not Reportable 12/25/19 03:47 Toxic Vacuolation Not Reportable 12/25/19 03:47 Dohle Bodies Not Reportable 12/25/19 03:47 Pelger-Huet Anomaly Not Reportable 12/25/19 03:47 Dominique Rods Not Reportable 12/25/19 03:47 Platelet Estimate Consistent w auto 12/25/19 03:47 Clumped Platelets Not Reportable 12/25/19 03:47 Plt Clumps, EDTA Not Reportable 12/25/19 03:47 Large Platelets Not Reportable 12/25/19 03:47 Giant Platelets Not Reportable 12/25/19 03:47 Platelet Satelliting Not Reportable 12/25/19 03:47 Plt Morphology Comment Not Reportable 12/25/19 03:47 RBC Morphology Not Reportable 12/25/19 03:47 Dimorphic RBCs Not Reportable 12/25/19 03:47 Polychromasia Not Reportable 12/25/19 03:47 Hypochromasia Not Reportable 12/25/19 03:47 Poikilocytosis Not Reportable 12/25/19 03:47 Anisocytosis 1+ 12/25/19 03:47 Microcytosis Not Reportable 12/25/19 03:47 Macrocytosis Not Reportable 12/25/19 03:47 Spherocytes Not Reportable 12/25/19 03:47 Pappenheimer Bodies Not Reportable 12/25/19 03:47 Sickle Cells Not Reportable 12/25/19 03:47 Target Cells Not Reportable 12/25/19 03:47 Tear Drop Cells Not Reportable 12/25/19 03:47 Ovalocytes Not Reportable 12/25/19 03:47 Helmet Cells Not Reportable 12/25/19 03:47 Frias-Dean Bodies Not Reportable 12/25/19 03:47 Bryce Rings Not Reportable 12/25/19 03:47 Jamshid Cells Not Reportable 12/25/19 03:47 Bite Cells Not Reportable 12/25/19 03:47 Crenated Cell Not Reportable 12/25/19 03:47 Elliptocytes Not Reportable 12/25/19 03:47 Acanthocytes (Spur) Not Reportable 12/25/19 03:47 Rouleaux Not Reportable 12/25/19 03:47 Hemoglobin C Crystals Not Reportable 12/25/19 03:47 Schistocytes Not Reportable 12/25/19 03:47 Malaria parasites Not Reportable 12/25/19 03:47 Gregg Bodies Not Reportable 12/25/19 03:47 Hem Pathologist Commnt No 12/25/19 03:47 PT 17.0 Sec. (12.2-14.9) H 11/23/19 03:47 INR 1.36 (0.87-1.13) H 11/23/19 03:47 APTT 128.2 Sec. (24.2-36.6) H* 11/23/19 03:47 Heparin Anti-Xa Level 0.31 U.I./ml (0.3-0.7) 11/23/19 09:03 ABG pH 7.429 pH Units (7.350-7.450) 01/09/20 08:51 ABG pCO2 39.1 mm Hg 01/09/20 08:51 ABG pO2 94.3 mm Hg (80.0-90.0) H 01/09/20 08:51 ABG HCO3 25.3 mmol/L (20.0-26.0) 01/09/20 08:51 ABG O2 Saturation 97.4 % (95.0-99.0) 01/09/20 08:51 ABG O2 Content 12.9 (0.0-44) 01/09/20 08:51 ABG Base Excess 1.0 mmol/L (-2.0-3.0) 01/09/20 08:51 ABG Hemoglobin 9.5 gm/dl (12.0-16.0) L 01/09/20 08:51 ABG Carboxyhemoglobin 1.3 % (0.0-5.0) 01/09/20 08:51 ABG Methemoglobin 0.4 % (0.0-1.5) 01/09/20 08:51 Oxyhemoglobin 95.7 % (95.0-99.0) 01/09/20 08:51 FiO2 35 % 01/09/20 08:51 Sodium 136 mmol/L (137-145) L 02/08/20 08:52 Potassium 4.3 mmol/L (3.6-5.0) 02/08/20 08:52 Chloride 95.7 mmol/L (98-107) L 02/08/20 08:52 Carbon Dioxide 27 mmol/L (22-30) 02/08/20 08:52 Anion Gap 18 mmol/L 02/08/20 08:52 BUN 21 mg/dL (7-17) H 02/08/20 08:52 Creatinine 0.4 mg/dL (0.7-1.2) L 02/08/20 08:52 Estimated GFR > 60 ml/min 02/08/20 08:52 BUN/Creatinine Ratio 53 % 02/08/20 08:52 Glucose 99 mg/dL (65-100) 02/08/20 08:52 POC Glucose 135 (70-105) H 02/14/20 11:19 Lactic Acid 1.80 mmol/L (0.7-2.0) 11/25/19 05:05 Calcium 10.4 mg/dL (8.4-10.2) H 02/08/20 08:52 Ionized Calcium 4.5 mg/dL (4.8-5.6) L 11/23/19 06:32 Phosphorus 4.20 mg/dL (2.5-4.5) D 11/28/19 08:59 Magnesium 2.30 mg/dL (1.7-2.3) 11/29/19 13:41 Total Bilirubin 0.40 mg/dL (0.1-1.2) 12/13/19 07:48 AST 27 units/L (5-40) 12/13/19 07:48 ALT 26 units/L (7-56) 12/13/19 07:48 Alkaline Phosphatase 316 units/L (35-129) H 12/13/19 07:48 Ammonia 42.0 umol/L (25-60) 11/29/19 13:41 Total Creatine Kinase 139 units/L (30-135) H 11/22/19 23:27 CK-MB (CK-2) 8.3 ng/mL (0.0-4.0) H 11/22/19 23:27 CK-MB (CK-2) Rel Index 5.9 (0-4) H 11/22/19 23:27 Troponin T < 0.010 ng/mL (0.00-0.029) 11/22/19 23:27 Total Protein 6.8 g/dL (6.3-8.2) 12/13/19 07:48 Albumin 2.4 g/dL (3.9-5) L 12/13/19 07:48 Albumin/Globulin Ratio 0.5 % 12/13/19 07:48 Lipase 18 units/L (13-60) 11/23/19 00:34 Procalcitonin 1.09 ng/mL (<0.15) 11/23/19 04:53 TSH 1.010 mlU/mL (0.270-4.200) 02/12/20 07:36 Free T4 1.08 ng/dL (0.76-1.46) 02/12/20 07:36 Urine Color Yellow (Yellow) 12/16/19 Unknown Urine Turbidity Slightly-cloudy (Clear) 12/16/19 Unknown Urine pH 5.0 (5.0-7.0) 12/16/19 Unknown Ur Specific [place] 1.018 (1.003-1.030) 12/16/19 Unknown Urine Protein 30 mg/dl mg/dL (Negative) 12/16/19 Unknown Urine Glucose (UA) Neg mg/dL (Negative) 12/16/19 Unknown Urine Ketones Neg mg/dL (Negative) 12/16/19 Unknown Urine Blood Sm (Negative) 12/16/19 Unknown Urine Nitrite Neg (Negative) 12/16/19 Unknown Urine Bilirubin Neg (Negative) 12/16/19 Unknown Urine Urobilinogen < 2.0 mg/dL (<2.0) 12/16/19 Unknown Ur Leukocyte Esterase Neg (Negative) 12/16/19 Unknown Urine WBC (Auto) 6.0 /HPF (0.0-6.0) 12/16/19 Unknown Urine RBC (Auto) 9.0 /HPF (0.0-6.0) 12/16/19 Unknown U Epithel Cells (Auto) < 1.0 /HPF (0-13.0) 12/16/19 Unknown Urine Bacteria (Auto) 2+ /HPF (Negative) 11/22/19 23:17 Hyaline Casts 3 /LPF 12/16/19 Unknown Granular Casts 3 /LPF 12/16/19 Unknown Urine Mucus Few /HPF 12/16/19 Unknown Vancomycin Trough 33.8 ug/mL (5.0-20.0) H 12/21/19 08:56 Random Vancomycin 16.2 ug/mL (0-40.0) 12/24/19 04:31 Salicylates < 0.3 mg/dL (2.8-20.0) L 11/22/19 23:27 Urine Opiates Screen Presumptive negative 11/22/19 23:17 Urine Methadone Screen Presumptive negative 11/22/19 23:17 Acetaminophen < 5.0 ug/mL (10.0-30.0) L 11/22/19 23:27 Ur Barbiturates Screen Presumptive negative 11/22/19 23:17 Ur Phencyclidine Scrn Presumptive negative 11/22/19 23:17 Ur Amphetamines Screen Presumptive negative 11/22/19 23:17 U Benzodiazepines Scrn Presumptive negative 11/22/19 23:17 Urine Cocaine Screen Presumptive negative 11/22/19 23:17 U Marijuana (THC) Screen Presumptive negative 11/22/19 23:17 Drugs of Abuse Note Disclamer 11/22/19 23:17 Plasma/Serum Alcohol 0.08 % (0-0.07) H 11/22/19 23:27 Coronavirus (PCR) Negative (Negative) 02/05/20 07:50 Hepatitis A IgM Ab Non-reactive (NonReactive) 11/23/19 01:19 Hep Bs Antigen Non-reactive (Negative) 11/23/19 01:19 Hep B Core IgM Ab Non-reactive (NonReactive) 11/23/19 01:19 Hepatitis C Antibody Non-reactive (NonReactive) 11/23/19 01:19 Blood Type O POSITIVE 12/21/19 14:54 Antibody Screen Negative 12/21/19 14:54 Crossmatch See Detail 12/21/19 14:54 - Diagnostic Impressions Diagnostic Impressions: Echocardiogram 11/23/19 03:58 Transthoracic Echocardiogram Indication: Cardiac arrest BP: 131/89 HR: 115 Conclusions *The study quality is technically difficult. *Global left ventricular wall motion and contractility are within normal limits. *The estimated ejection fraction is 55-60%. *Abnormal left ventricular diastolic filling is observed, consistent with impaired relaxation. *There is no pericardial effusion. Findings Procedure Info: The study quality is technically difficult. The study was technically limited due to the patient's inability to lay in the left lateral decubitus position. Left Ventricle: The left ventricular chamber size is normal. There is no left ventricular hypertrophy. Global left ventricular wall motion and contractility are within normal limits. Global left ventricular systolic function is normal. The estimated ejection fraction is 55-60%. Abnormal left ventricular diastolic filling is observed, consistent with impaired relaxation. Left Atrium: The left atrial chamber size is normal. Aortic Valve: The aortic valve leaflets are mildly thickened. Mitral Valve: The mitral valve leaflets are mildly thickened. There is no evidence of mitral regurgitation. Tricuspid Valve: The tricuspid valve leaflets are normal. There is trace tricuspid regurgitation. The right ventricular systolic pressure is calculated at 33 mmHg. Pulmonic Valve: The pulmonic valve appears normal. Pericardium: The pericardium appears normal. There is no pericardial effusion. Aorta: The aorta appears normal. Venous: The inferior vena cava appears normal in size. Measurements Chambers 2D Name Value Normal Range IVSd (2D) 0.94 cm (0.6 - 1.1) LVPWd (2D) 0.81 cm (0.6 - 1.1) LVIDd (2D) 3.6 cm (3.7 - 5.6) LVIDs (2D) 2.27 cm (2 - 3.8) LV FS (2D) 36.93 % - EF Teichholz (2D) 67.76 % - Ao root diameter (2D) 3.03 cm (2 - 3.7) Volumes/Mass Name Value Normal Range LA ESV SP 4CH (A/L) 16.89 ml - LA ESV SP 4CH (MOD) 15.52 ml - Diastolic/Systolic Function Name Value Normal Range MV E-wave Vmax 0.55 m/sec - MV deceleration time 200.89 msec - MV A-wave Vmax 0.68 m/sec - MV E:A ratio 0.82 ratio - Aortic Valve Name Value Normal Range AV Vmax 1.1 m/sec - AV VTI 15.9 cm - AV peak gradient 4.86 mmHg - AV mean gradient 2.59 mmHg - LVOT diameter 2 cm - LVOT Vmax 1.03 m/sec - LVOT VTI 15.87 cm - LVOT peak gradient 4.24 mmHg - LVOT mean gradient 2.41 mmHg - SV LVOT 49.77 ml - JOSÉ MIGUEL (continuity Vmax) 2.93 cm2 - JOSÉ MIGUEL (continuity VTI) 3.13 cm2 - Tricuspid Valve Name Value Normal Range TR Vmax 2.74 m/sec - TR peak gradient 303 mmHg - RAP 3 mmHg - RVSP 33 mmHg - IVC diameter 1.77 cm (1.2 - 2.3) Pulmonic Valve/Qp:Qs Name Value Normal Range PV Vmax 0.77 m/sec - PV peak gradient 2.4 mmHg - PV acceleration time 114.18 msec - Echocardiogram Limited Views 12/17/19 14:53 Transthoracic Echocardiogram Indication: R/O Vegetations BP: 144/83 HR: 133 Conclusions *Global left ventricular systolic function is mildly decreased. *The estimated ejection fraction is 45-50%. *A trivial pericardial effusion is visualized. Findings Left Ventricle: The left ventricular chamber size is normal. Global left ventricular systolic function is mildly decreased. The estimated ejection fraction is 45-50%. Left Atrium: The left atrial chamber size is normal. Right Ventricle: The right ventricular cavity size is normal. Right Atrium: The right atrial cavity size is normal. Aortic Valve: The aortic valve is not well visualized. There is no evidence of aortic regurgitation. Mitral Valve: The mitral valve leaflets are mildly thickened. There is trace of mitral regurgitation. Tricuspid Valve: The tricuspid valve leaflets are mildly thickened. There is trace tricuspid regurgitation. The right ventricular systolic pressure is calculated at 29 mmHg. Pulmonic Valve: The pulmonic valve is not well visualized. There is no evidence of pulmonic regurgitation. Pericardium: A trivial pericardial effusion is visualized. Aorta: There is no dilatation of the ascending aorta. There is no dilatation of the aortic root. Venous: The inferior vena cava appears normal in size. There is a greater than 50% respiratory change in the inferior vena cava dimension. Measurements Chambers 2D Name Value Normal Range IVSd (2D) 0.83 cm (0.6 - 1.1) LVPWd (2D) 0.98 cm (0.6 - 1.1) LVIDd (2D) 3.71 cm (3.7 - 5.6) LVIDs (2D) 2.93 cm (2 - 3.8) LV FS (2D) 21.12 % - EF Teichholz (2D) 43.71 % - Ao root diameter (2D) 3.02 cm (2 - 3.7) Volumes/Mass Name Value Normal Range LA ESV SP 4CH (A/L) 36.8 ml - LA ESV SP 2CH (A/L) 45.89 ml - LA ESV BP (A/L) 42.35 ml - LA ESV BP (A/L) index 26.63 ml/m2 - LA ESV SP 4CH (MOD) 34.42 ml - LA ESV SP 2CH (MOD) 44.21 ml - LA ESV BP (MOD) 39.82 ml - LA ESV BP (MOD) index 25.05 ml/m2 - Aortic Valve Name Value Normal Range LVOT diameter 1.63 cm - Tricuspid Valve Name Value Normal Range TR Vmax 2.56 m/sec - TR peak gradient 26 mmHg - RAP 3 mmHg - RVSP 29 mmHg - IVC diameter 1.83 cm (1.2 - 2.3) [place]/IV: Voiding Method Incontinent IV Catheter Type [Forearm] Peripheral IV IV Catheter Type [Left Forearm INT / Saline Lock ] IV Catheter Type [Right Peripheral IV Antecubital] IV Catheter Type [Right Hand] Peripheral IV IV Catheter Type [Right Wrist] Peripheral IV IV Catheter Type [Left Wrist] Peripheral IV IV Catheter Type [Left Peripheral IV Antecubital] IV Catheter Type [Right INT / Saline Lock Forearm] IV Catheter Type [Left Hand] Peripheral IV Active Medications - Current Medications Current Medications: Generic Name Dose Route Start Last Admin Trade Name Freq PRN Reason Stop Dose Admin Acetaminophen 650 mg 12/06/19 10:25 02/13/20 22:01 Tylenol FEEDTUBE 650 mg Q6H PRN Administration TEMP >/=100.3 Lipase/Protease/Amylase 1 each 11/23/19 11:[address] 10,500 Unit FEEDTUBE PRN PRN Use w/ sod bicarb for FT Bisacodyl 10 mg 02/06/20 13:57 Dulcolax [place] QDAY PRN Constipation unrelieved by MOM Docusate Sodium 100 mg 02/06/20 22:00 02/14/20 11:06 Colace PO 100 mg BID LUCHO Administration Glycopyrrolate 2 mg 12/31/19 20:00 02/14/20 11:05 Robinul PO 2 mg TID LUCHO Administration Hydralazine HCl 10 mg 11/24/19 00:45 12/18/19 13:25 Apresoline IV 10 mg Q6H PRN Administration SBP > 160 Hydroxyzine Pamoate 25 mg 12/06/19 10:00 02/14/20 11:03 Vistaril PO 25 mg BID LUCHO Administration Lansoprazole 30 mg 11/27/19 10:00 02/14/20 11:05 Prevacid Solutab FEEDTUBE 30 mg QDAY LUCHO Administration Levalbuterol HCl 0.63 mg 01/24/20 14:00 02/14/20 08:40 Xopenex IH 0.63 mg Q6HRT LUCHO Administration Levetiracetam 500 mg 11/29/19 10:00 02/14/20 11:04 Keppra PO 500 mg BID LUCHO Administration Mirtazapine 30 mg 12/06/19 10:00 02/14/20 11:04 Remeron PO 30 mg DAILY LUCHO Administration Ondansetron HCl 4 mg 12/10/19 07:53 02/05/20 22:06 Zofran IV 4 mg Q4H PRN Administration Nausea And Vomiting Polyethylene Glycol 17 gm 02/06/20 13:57 Miralax 3350 PO QDAY PRN Constipation Quetiapine Fumarate 100 mg 01/09/20 21:41 02/13/20 22:02 Seroquel FEEDTUBE 100 mg QHS LUCHO Administration Scopolamine 1 each 02/08/20 15:00 02/11/20 14:59 Transderm-Scop TD 1 each Q3D LUCHO Administration Sertraline HCl 25 mg 01/01/20 10:00 02/14/20 11:04 Zoloft PO 25 mg QDAY LUCHO Administration Simple Syrup 15 ml 11/23/19 11:50 Simple Syrup FEEDTUBE PRN PRN Hypoglycemia BG<70 Simple Syrup 30 ml 11/23/19 11:50 Simple Syrup FEEDTUBE PRN PRN Hypoglycemia Sodium Bicarbonate 325 mg 11/23/19 11:50 Sodium Bicarbonate FEEDTUBE PRN PRN For Clogged Feeding Tube Nutrition/Malnutrition Assess - Dietary Evaluation Nutrition/Malnutrition Findings: Nutrition Notes Start: 11/23/19 11:29 Freq: Status: Active Protocol: Document 02/12/20 15:17 LM (Rec: 02/12/20 15:20 LM [id number]) Nutrition Notes Initial or Follow up Reassessment Current Diagnosis Hypertension Other Pertinent Diagnosis Cardaic arrest, ETOH dependence, UTI Current Diet Jevity 1.2 at 60ml/hr Labs/Tests Reviewed Pertinent Medications Reviewed Height 5 ft 6 in Weight 49.2 kg [place] Body Weight (kg) 59.09 BMI 17.5 Subjective/Other Information Pt receiving Jevity at 55ml/hr . Spoke to RN. RN will increase rate to 60. Burn Absent Trauma Absent GI Symptoms None Current % PO Negligible Minimum of two criteria Yes Interpretation of Weight Loss (severe) >2% in 1 week Muscle Mass Mild Depletion (non-severe) #2 Nutrition Diagnosis Malnutrition Diagnosis Progress(for reassessment Continues documentation) #1 Nutrition Diagnosis Inadequate oral intake Diagnosis Progress(for reassessment Continues documentation) Is patient on ventilator? No Is Patient Ambulatory and/or Out of Bed No REE-([place]-confined to bed) 1335.096 Kcal/Kg value to use for calculation 37 Approximate Energy Requirements Using 1820 kcal/Kg Calculation Used for Recommendations Kcal/kg Additional Notes Protein: 60-75g (1.2-1.5g/kg) Fluid: 1 ml/kcal Nutrition Intervention Change Diet Order: Continue TF Nutrition Support: Change to Jevity 1.2 at 60ml/ hr Flush 100ml q4h Kcal 1,728 Protein (gm) 80 Fluid (mL) 1,162 Goal #1 TF tolerance Goal #2 Meet at least 80% of energy and protein needs via TF Anticipated Discharge Needs: TF Follow-Up By: 02/14/20 Additional Comments F/U for TF tolerance, wt
[2020-02-14] MEDS: SCOPOLAMINE TRANSDERMAL PATCH 72 HR TD SCH (16:00)
[2020-02-14] MEDS: ACETAMINOPHEN 325 MG/10.15 ML ORAL LIQD UNIT DOSE FEEDTUBE PRN (22:09)
[2020-02-14] MEDS: QUEtiapine 100 MG TAB FEEDTUBE SCH (22:10)
[2020-02-15] MEDS: LEVALBUTEROL 0.63 MG/3 ML NEBU IH SCH ×4 (02:58→20:09)
[2020-02-15] MEDS: GLYCOPYRROLATE 1 MG TAB PO SCH ×3 (08:17→22:21)
[2020-02-15] MEDS: levETIRAcetam 500 MG/5 ML ORAL LIQD PO SCH ×2 (09:33→22:21)
[2020-02-15] MEDS: LANSOPRAZOLE 30 MG SOLUTAB FEEDTUBE SCH (09:33)
[2020-02-15] MEDS: SERTRALINE 50 MG TAB PO SCH (09:33)
[2020-02-15] MEDS: hydrOXYzine PAMOATE 25 MG CAP PO SCH ×2 (09:33→22:21)
[2020-02-15] MEDS: MIRTAZAPINE 30 MG TAB PO SCH (09:34)
[2020-02-15] MEDS: DOCUSATE SODIUM 100 MG CAP PO SCH ×2 (10:17→22:21)
[2020-02-15] MEDS: QUEtiapine 100 MG TAB FEEDTUBE SCH (22:21)
[2020-02-15] MEDS: ACETAMINOPHEN 325 MG/10.15 ML ORAL LIQD UNIT DOSE FEEDTUBE PRN (22:21)
[2020-02-16] MEDS: LEVALBUTEROL 0.63 MG/3 ML NEBU IH SCH ×3 (02:35→13:50)
--- NOTE | 2020-02-16 07:26 | Progress Note ---
Assessment and Plan Assessment and plan: 54-year-old female with a past medical history of Hypertension, Depression, Tobacco use Disorder, Alcohol use Disorder as confirmed by Daughter and pt's mother presents to the hospital status post cardiac arrest. Patient is from home and family called EMS at 22: 27 for the pt who had told family members that she was not feeling good and c/o her chronic hip pain. She urinated and then was speaking, then she " froze and was rigid " per daughter and she became unresponsive and stopped breathing. Immediately, family began CPR. EMS found pt in PEA. Upon their arrival patient in SinuS Tachycardia.. They were unable to intubate patient with a ET tube because she was clenching down therefore Joe airway placed. Patient received Narcan and Epinephrine. Patient's rhythm changed to PEA to sinus bradycardia, to PEA, then to sinus tach after receiving Narcan and Epinephrine. Per the ED physician who evaluated pt, Patient presented with a pulse, intermittent respirations, and bagging support via Joe airway with O2 sat of 100%. Accu-Chek of 71 obtained by EMS Following admission patient was diagnosed with anoxic brain injury, sepsis with MRSA bacteremia and MSSA pneumonia, alcoholic liver disease. Family member initially wished for full code then changed to DNR, patient treated with IV a ntibiotics for sepsis, status post trach and PEG on 12/13/19. Weaned off from the vent and put on T-piece. Patient is uninsured, waiting for placement, guarded prognosis. Dr. Rodriguez spoke to patient's family (daughter and mother). MOther is Anh Jesus- [phone] and she would like to be called about pt's progress or notified about the pt. No seizure activity was noted. They deny that patient had any preceding infection symptoms, cough, fever, complaints of chest pain, shortness of breath, or any bleeding diathesis, melena, hematochezia, hematuria, hematemesis, or abdominal pain. Patient is a known alcoholic and continues to drink per daughter. No history could be obtained from the pt due to her mechanical ventilation. No previous hx of DVT/PE per mother and daughter. 02/13/2020 continue aggressive pulmonary toilet. Agree with addition of Mucomyst every 72 hours. Continue wound care. Awaiting discussion with family about CODE STATUS this has been initiated by the pulmonary doctor have also advised that I am available if the family would like to combine the hospital. Will obtain psych evaluation for anxiety which is understandable in the patient's current medical condition. 02/13: No clinical change. Continue aggressive therapy and weaning, Pulmonary toilet. 02/14: Psy to see due to hallucinations : The patient does not meet the requirement for acute in patient psychiatric treatment. It is my clinical opinion the patient's mental condition is likely due to complex medical conditions and he would not improve nor benefit from out services at this time. Still pending disposition 02/15: Check labs, Vitals stabilizing, No new seizures reported. Still speaking to self. Continue aggressive pulmonary toilet via Trach. Continue management of wound around the trach with adequate dressing changes. / Anoxic brain injury: suspected CT head: No acute abnormality. EEG ordered showed Generalized slowing. No seizures or epileptiform activity. -Patient now opening her eyes, can speak and able to follow minor command by nodding head /Acute Respiratory failure with hypoxia -s/p Tracheostomy Status post cardiac arrest -s/p intubation, s/p trach and PEG on 12/12 with mechanical ventilation, now on T-piece - CTA was done and negative for PE, - Echo quality is poor, showed diastolic dysfunction - continue weaning as tolerated /Oropharyngeal dysphagia s/p PEG /Persistent Tachycardia -Check TSH and Free T4 /BHAVANA secondary to vasomotor nephropathy /Anemia, microcytic - Status post 3 units PRBC transfusion, H&H low stable /Acute metabolic encephalopathy/toxic encephalopathy due to the above - cont supportive care /Hyperammonemia - likely from liver disease related to EtOH abuse - Patient had elevated ammonia level and treated with lactulose /Metabolic Acidosis -Alcohol ketoacidosis vs hypoprofusion -Continue to monitor /Acute cystitis /ELevated LFTs, stable now - due to ischemic hepatitis. /Leucocytosis with sepsis - Source MRSA bacteremia and MSSA pneumonia. UA showed pyuria. RUQ US showed no ascites. - Repeat TTE negative for vegetation. Completed 7 days of Ceftriaxone on 11/29/2019. -Treated with Abx vancomycin 1 gm IV q 12 hour total 2 week till 12/30/2019 /MSSA pneumonia: Status post vancomycin till 12/30/2019 /ALcohol USe Disorder - given ongoing Alcohol use almost daily, s/p IV Thiamine - monitor /Severe hypokalemia -Repleted /Seizure disorder: treat with Keppra /H. Influenzae, tracheobronchitis, treated with abx /Moderate to severe fecal impaction - will add stool softner /Anxiety disorder: Psych consulted DNR CODE STATUS Disposition: prognosis guarded. Family okay for DNR, PT recommended subacute rehab, discharge pending on placement. negative for COVID 19 Awaiting Placement to SNF History Interval history: Patient seen and examined, awake, still speaks to herself. Continues to make remarkable improvement still on restraints due to impulsive trying to get out of bed. Hospitalist Physical - Physical exam Narrative exam: General appearance: Present: no acute distress - EENT Eyes: PERRL ENT: hearing intact, clear oral mucosa, o neck wound around trach. - Neck Neck: supple, normal ROM - Respiratory Respiratory: bilateral: CTA, diminished - Breasts Breasts: normal - Cardiovascular Rhythm: regular Extremities: pulses intact, No edema, normal color, Full ROM - Gastrointestinal General gastrointestinal: Present: soft, non-tender, non-distended, normal bowel sounds, hypoactive bowel sounds - Genitourinary Female genitourinary: normal - Integumentary Integumentary: See wound care documentation of trach wound. - Musculoskeletal Musculoskeletal: generalized weakness - Neurologic Neurologic: focal deficits, intermittent confusion - Constitutional Vitals: Temp Pulse Resp BP Pulse Ox 98.0 F 88 18 112/67 100 02/16/20 04:00 02/16/20 04:00 02/16/20 04:00 02/16/20 04:00 02/16/20 04:00 General appearance: Present: no acute distress HEART Score - HEART Score Troponin: Troponin T < 0.010 ng/mL (0.00-0.029) 11/22/19 23:27 Results - Labs CBC & Chem 7: 02/08/20 07:55 02/08/20 08:52 Labs: Laboratory Last Values WBC 9.3 K/mm3 (4.5-11.0) 02/03/20 05:59 RBC 3.48 M/mm3 (3.65-5.03) L 02/03/20 05:59 Hgb 10.7 gm/dl (10.1-14.3) 02/08/20 07:55 Hct 31.7 % (30.3-42.9) 02/08/20 07:55 MCV 86 fl (79-97) 02/03/20 05:59 MCH 29 pg (28-32) 02/03/20 05:59 MCHC 34 % (30-34) 02/03/20 05:59 RDW 16.2 % (13.2-15.2) H 02/03/20 05:59 Plt Count 707 K/mm3 (140-440) H 02/03/20 05:59 Lymph % (Auto) 20.2 % (13.4-35.0) 02/03/20 05:59 Ralls % (Auto) 9.3 % (0.0-7.3) H 02/03/20 05:59 Eos % (Auto) 2.5 % (0.0-4.3) 02/03/20 05:59 Baso % (Auto) 0.6 % (0.0-1.8) 02/03/20 05:59 Lymph # 1.9 K/mm3 (1.2-5.4) 02/03/20 05:59 Ralls # 0.9 K/mm3 (0.0-0.8) H 02/03/20 05:59 Eos # 0.2 K/mm3 (0.0-0.4) 02/03/20 05:59 Baso # 0.1 K/mm3 (0.0-0.1) 02/03/20 05:59 Add Manual Diff Complete 12/25/19 03:47 Total Counted 200 12/25/19 03:47 Seg Neutrophils % 67.4 % (40.0-70.0) 02/03/20 05:59 Seg Neuts % (Manual) 97.5 % (40.0-70.0) H 12/25/19 03:47 Band Neutrophils % 0 % 12/25/19 03:47 Lymphocytes % (Manual) 1.0 % (13.4-35.0) L 12/25/19 03:47 Reactive Lymphs % (Man) 0 % 12/25/19 03:47 Monocytes % (Manual) 1.5 % (0.0-7.3) 12/25/19 03:47 Eosinophils % (Manual) 0 % (0.0-4.3) 12/25/19 03:47 Basophils % (Manual) 0 % (0.0-1.8) 12/25/19 03:47 Metamyelocytes % 0 % 12/25/19 03:47 Myelocytes % 0 % 12/25/19 03:47 Promyelocytes % 0 % 12/25/19 03:47 Blast Cells % 0 % 12/25/19 03:47 Nucleated RBC % Not Reportable 12/25/19 03:47 Seg Neutrophils # 6.3 K/mm3 (1.8-7.7) 02/03/20 05:59 Seg Neutrophils # Man 35.3 K/mm3 (1.8-7.7) H 12/25/19 03:47 Band Neutrophils # 0.0 K/mm3 12/25/19 03:47 Lymphocytes # (Manual) 0.4 K/mm3 (1.2-5.4) L 12/25/19 03:47 Abs React Lymphs (Man) 0.0 K/mm3 12/25/19 03:47 Monocytes # (Manual) 0.5 K/mm3 (0.0-0.8) 12/25/19 03:47 Eosinophils # (Manual) 0.0 K/mm3 (0.0-0.4) 12/25/19 03:47 Basophils # (Manual) 0.0 K/mm3 (0.0-0.1) 12/25/19 03:47 Metamyelocytes # 0.0 K/mm3 12/25/19 03:47 Myelocytes # 0.0 K/mm3 12/25/19 03:47 Promyelocytes # 0.0 K/mm3 12/25/19 03:47 Blast Cells # 0.0 K/mm3 12/25/19 03:47 Pathologist Review 12/13/19 07:48 WBC Morphology Not Reportable 12/25/19 03:47 Hypersegmented Neuts Not Reportable 12/25/19 03:47 Hyposegmented Neuts Not Reportable 12/25/19 03:47 Hypogranular Neuts Not Reportable 12/25/19 03:47 Smudge Cells Not Reportable 12/25/19 03:47 Toxic Granulation Not Reportable 12/25/19 03:47 Toxic Vacuolation Not Reportable 12/25/19 03:47 Dohle Bodies Not Reportable 12/25/19 03:47 Pelger-Huet Anomaly Not Reportable 12/25/19 03:47 Dominique Rods Not Reportable 12/25/19 03:47 Platelet Estimate Consistent w auto 12/25/19 03:47 Clumped Platelets Not Reportable 12/25/19 03:47 Plt Clumps, EDTA Not Reportable 12/25/19 03:47 Large Platelets Not Reportable 12/25/19 03:47 Giant Platelets Not Reportable 12/25/19 03:47 Platelet Satelliting Not Reportable 12/25/19 03:47 Plt Morphology Comment Not Reportable 12/25/19 03:47 RBC Morphology Not Reportable 12/25/19 03:47 Dimorphic RBCs Not Reportable 12/25/19 03:47 Polychromasia Not Reportable 12/25/19 03:47 Hypochromasia Not Reportable 12/25/19 03:47 Poikilocytosis Not Reportable 12/25/19 03:47 Anisocytosis 1+ 12/25/19 03:47 Microcytosis Not Reportable 12/25/19 03:47 Macrocytosis Not Reportable 12/25/19 03:47 Spherocytes Not Reportable 12/25/19 03:47 Pappenheimer Bodies Not Reportable 12/25/19 03:47 Sickle Cells Not Reportable 12/25/19 03:47 Target Cells Not Reportable 12/25/19 03:47 Tear Drop Cells Not Reportable 12/25/19 03:47 Ovalocytes Not Reportable 12/25/19 03:47 Helmet Cells Not Reportable 12/25/19 03:47 [place] Bodies Not Reportable 12/25/19 03:47 [place] Rings Not Reportable 12/25/19 03:47 [place] Cells Not Reportable 12/25/19 03:47 Bite Cells Not Reportable 12/25/19 03:47 Crenated Cell Not Reportable 12/25/19 03:47 Elliptocytes Not Reportable 12/25/19 03:47 Acanthocytes (Spur) Not Reportable 12/25/19 03:47 Rouleaux Not Reportable 12/25/19 03:47 Hemoglobin C Crystals Not Reportable 12/25/19 03:47 Schistocytes Not Reportable 12/25/19 03:47 Malaria parasites Not Reportable 12/25/19 03:47 Gregg Bodies Not Reportable 12/25/19 03:47 Hem Pathologist Commnt No 12/25/19 03:47 PT 17.0 Sec. (12.2-14.9) H 11/23/19 03:47 INR 1.36 (0.87-1.13) H 11/23/19 03:47 APTT 128.2 Sec. (24.2-36.6) H* 11/23/19 03:47 Heparin Anti-Xa Level 0.31 U.I./ml (0.3-0.7) 11/23/19 09:03 ABG pH 7.429 pH Units (7.350-7.450) 01/09/20 08:51 ABG pCO2 39.1 mm Hg 01/09/20 08:51 ABG pO2 94.3 mm Hg (80.0-90.0) H 01/09/20 08:51 ABG HCO3 25.3 mmol/L (20.0-26.0) 01/09/20 08:51 ABG O2 Saturation 97.4 % (95.0-99.0) 01/09/20 08:51 ABG O2 Content 12.9 (0.0-44) 01/09/20 08:51 ABG Base Excess 1.0 mmol/L (-2.0-3.0) 01/09/20 08:51 ABG Hemoglobin 9.5 gm/dl (12.0-16.0) L 01/09/20 08:51 ABG Carboxyhemoglobin 1.3 % (0.0-5.0) 01/09/20 08:51 ABG Methemoglobin 0.4 % (0.0-1.5) 01/09/20 08:51 Oxyhemoglobin 95.7 % (95.0-99.0) 01/09/20 08:51 FiO2 35 % 01/09/20 08:51 Sodium 136 mmol/L (137-145) L 02/08/20 08:52 Potassium 4.3 mmol/L (3.6-5.0) 02/08/20 08:52 Chloride 95.7 mmol/L (98-107) L 02/08/20 08:52 Carbon Dioxide 27 mmol/L (22-30) 02/08/20 08:52 Anion Gap 18 mmol/L 02/08/20 08:52 BUN 21 mg/dL (7-17) H 02/08/20 08:52 Creatinine 0.4 mg/dL (0.7-1.2) L 02/08/20 08:52 Estimated GFR > 60 ml/min 02/08/20 08:52 BUN/Creatinine Ratio 53 % 02/08/20 08:52 Glucose 99 mg/dL (65-100) 02/08/20 08:52 POC Glucose 121 (70-105) H 02/16/20 00:58 Lactic Acid 1.80 mmol/L (0.7-2.0) 11/25/19 05:05 Calcium 10.4 mg/dL (8.4-10.2) H 02/08/20 08:52 Ionized Calcium 4.5 mg/dL (4.8-5.6) L 11/23/19 06:32 Phosphorus 4.20 mg/dL (2.5-4.5) D 11/28/19 08:59 Magnesium 2.30 mg/dL (1.7-2.3) 11/29/19 13:41 Total Bilirubin 0.40 mg/dL (0.1-1.2) 12/13/19 07:48 AST 27 units/L (5-40) 12/13/19 07:48 ALT 26 units/L (7-56) 12/13/19 07:48 Alkaline Phosphatase 316 units/L (35-129) H 12/13/19 07:48 Ammonia 42.0 umol/L (25-60) 11/29/19 13:41 Total Creatine Kinase 139 units/L (30-135) H 11/22/19 23:27 CK-MB (CK-2) 8.3 ng/mL (0.0-4.0) H 11/22/19 23:27 CK-MB (CK-2) Rel Index 5.9 (0-4) H 11/22/19 23:27 Troponin T < 0.010 ng/mL (0.00-0.029) 11/22/19 23:27 Total Protein 6.8 g/dL (6.3-8.2) 12/13/19 07:48 Albumin 2.4 g/dL (3.9-5) L 12/13/19 07:48 Albumin/Globulin Ratio 0.5 % 12/13/19 07:48 Lipase 18 units/L (13-60) 11/23/19 00:34 Procalcitonin 1.09 ng/mL (<0.15) 11/23/19 04:53 TSH 1.010 mlU/mL (0.270-4.200) 02/12/20 07:36 Free T4 1.08 ng/dL (0.76-1.46) 02/12/20 07:36 Urine Color Yellow (Yellow) 12/16/19 Unknown Urine Turbidity Slightly-cloudy (Clear) 12/16/19 Unknown Urine pH 5.0 (5.0-7.0) 12/16/19 Unknown Ur Specific [place] 1.018 (1.003-1.030) 12/16/19 Unknown Urine Protein 30 mg/dl mg/dL (Negative) 12/16/19 Unknown Urine Glucose (UA) Neg mg/dL (Negative) 12/16/19 Unknown Urine Ketones Neg mg/dL (Negative) 12/16/19 Unknown Urine Blood Sm (Negative) 12/16/19 Unknown Urine Nitrite Neg (Negative) 12/16/19 Unknown Urine Bilirubin Neg (Negative) 12/16/19 Unknown Urine Urobilinogen < 2.0 mg/dL (<2.0) 12/16/19 Unknown Ur Leukocyte Esterase Neg (Negative) 12/16/19 Unknown Urine WBC (Auto) 6.0 /HPF (0.0-6.0) 12/16/19 Unknown Urine RBC (Auto) 9.0 /HPF (0.0-6.0) 12/16/19 Unknown U Epithel Cells (Auto) < 1.0 /HPF (0-13.0) 12/16/19 Unknown Urine Bacteria (Auto) 2+ /HPF (Negative) 11/22/19 23:17 Hyaline Casts 3 /LPF 12/16/19 Unknown Granular Casts 3 /LPF 12/16/19 Unknown Urine Mucus Few /HPF 12/16/19 Unknown Vancomycin Trough 33.8 ug/mL (5.0-20.0) H 12/21/19 08:56 Random Vancomycin 16.2 ug/mL (0-40.0) 12/24/19 04:31 Salicylates < 0.3 mg/dL (2.8-20.0) L 11/22/19 23:27 Urine Opiates Screen Presumptive negative 11/22/19 23:17 Urine Methadone Screen Presumptive negative 11/22/19 23:17 Acetaminophen < 5.0 ug/mL (10.0-30.0) L 11/22/19 23:27 Ur Barbiturates Screen Presumptive negative 11/22/19 23:17 Ur Phencyclidine Scrn Presumptive negative 11/22/19 23:17 Ur Amphetamines Screen Presumptive negative 11/22/19 23:17 U Benzodiazepines Scrn Presumptive negative 11/22/19 23:17 Urine Cocaine Screen Presumptive negative 11/22/19 23:17 U Marijuana (THC) Screen Presumptive negative 11/22/19 23:17 Drugs of Abuse Note Disclamer 11/22/19 23:17 Plasma/Serum Alcohol 0.08 % (0-0.07) H 11/22/19 23:27 Coronavirus (PCR) Negative (Negative) 02/05/20 07:50 Hepatitis A IgM Ab Non-reactive (NonReactive) 11/23/19 01:19 Hep Bs Antigen Non-reactive (Negative) 11/23/19 01:19 Hep B Core IgM Ab Non-reactive (NonReactive) 11/23/19 01:19 Hepatitis C Antibody Non-reactive (NonReactive) 11/23/19 01:19 Blood Type O POSITIVE 12/21/19 14:54 Antibody Screen Negative 12/21/19 14:54 Crossmatch See Detail 12/21/19 14:54 - Diagnostic Impressions Diagnostic Impressions: Echocardiogram 11/23/19 03:58 Transthoracic Echocardiogram Indication: Cardiac arrest BP: 131/89 HR: 115 Conclusions *The study quality is technically difficult. *Global left ventricular wall motion and contractility are within normal limits. *The estimated ejection fraction is 55-60%. *Abnormal left ventricular diastolic filling is observed, consistent with impaired relaxation. *There is no pericardial effusion. Findings Procedure Info: The study quality is technically difficult. The study was technically limited due to the patient's inability to lay in the left lateral decubitus position. Left Ventricle: The left ventricular chamber size is normal. There is no left ventricular hypertrophy. Global left ventricular wall motion and contractility are within normal limits. Global left ventricular systolic function is normal. The estimated ejection fraction is 55-60%. Abnormal left ventricular diastolic filling is observed, consistent with impaired relaxation. Left Atrium: The left atrial chamber size is normal. Aortic Valve: The aortic valve leaflets are mildly thickened. Mitral Valve: The mitral valve leaflets are mildly thickened. There is no evidence of mitral regurgitation. Tricuspid Valve: The tricuspid valve leaflets are normal. There is trace tricuspid regurgitation. The right ventricular systolic pressure is calculated at 33 mmHg. Pulmonic Valve: The pulmonic valve appears normal. Pericardium: The pericardium appears normal. There is no pericardial effusion. Aorta: The aorta appears normal. Venous: The inferior vena cava appears normal in size. Measurements Chambers 2D Name Value Normal Range IVSd (2D) 0.94 cm (0.6 - 1.1) LVPWd (2D) 0.81 cm (0.6 - 1.1) LVIDd (2D) 3.6 cm (3.7 - 5.6) LVIDs (2D) 2.27 cm (2 - 3.8) LV FS (2D) 36.93 % - EF Teichholz (2D) 67.76 % - Ao root diameter (2D) 3.03 cm (2 - 3.7) Volumes/Mass Name Value Normal Range LA ESV SP 4CH (A/L) 16.89 ml - LA ESV SP 4CH (MOD) 15.52 ml - Diastolic/Systolic Function Name Value Normal Range MV E-wave Vmax 0.55 m/sec - MV deceleration time 200.89 msec - MV A-wave Vmax 0.68 m/sec - MV E:A ratio 0.82 ratio - Aortic Valve Name Value Normal Range AV Vmax 1.1 m/sec - AV VTI 15.9 cm - AV peak gradient 4.86 mmHg - AV mean gradient 2.59 mmHg - LVOT diameter 2 cm - LVOT Vmax 1.03 m/sec - LVOT VTI 15.87 cm - LVOT peak gradient 4.24 mmHg - LVOT mean gradient 2.41 mmHg - SV LVOT 49.77 ml - JOSÉ MIGUEL (continuity Vmax) 2.93 cm2 - JOSÉ MIGUEL (continuity VTI) 3.13 cm2 - Tricuspid Valve Name Value Normal Range TR Vmax 2.74 m/sec - TR peak gradient 303 mmHg - RAP 3 mmHg - RVSP 33 mmHg - IVC diameter 1.77 cm (1.2 - 2.3) Pulmonic Valve/Qp:Qs Name Value Normal Range PV Vmax 0.77 m/sec - PV peak gradient 2.4 mmHg - PV acceleration time 114.18 msec - Echocardiogram Limited Views 12/17/19 14:53 Transthoracic Echocardiogram Indication: R/O Vegetations BP: 144/83 HR: 133 Conclusions *Global left ventricular systolic function is mildly decreased. *The estimated ejection fraction is 45-50%. *A trivial pericardial effusion is visualized. Findings Left Ventricle: The left ventricular chamber size is normal. Global left ventricular systolic function is mildly decreased. The estimated ejection fraction is 45-50%. Left Atrium: The left atrial chamber size is normal. Right Ventricle: The right ventricular cavity size is normal. Right Atrium: The right atrial cavity size is normal. Aortic Valve: The aortic valve is not well visualized. There is no evidence of aortic regurgitation. Mitral Valve: The mitral valve leaflets are mildly thickened. There is trace of mitral regurgitation. Tricuspid Valve: The tricuspid valve leaflets are mildly thickened. There is trace tricuspid regurgitation. The right ventricular systolic pressure is calculated at 29 mmHg. Pulmonic Valve: The pulmonic valve is not well visualized. There is no evidence of pulmonic regurgitation. Pericardium: A trivial pericardial effusion is visualized. Aorta: There is no dilatation of the ascending aorta. There is no dilatation of the aortic root. Venous: The inferior vena cava appears normal in size. There is a greater than 50% respiratory change in the inferior vena cava dimension. Measurements Chambers 2D Name Value Normal Range IVSd (2D) 0.83 cm (0.6 - 1.1) LVPWd (2D) 0.98 cm (0.6 - 1.1) LVIDd (2D) 3.71 cm (3.7 - 5.6) LVIDs (2D) 2.93 cm (2 - 3.8) LV FS (2D) 21.12 % - EF Teichholz (2D) 43.71 % - Ao root diameter (2D) 3.02 cm (2 - 3.7) Volumes/Mass Name Value Normal Range LA ESV SP 4CH (A/L) 36.8 ml - LA ESV SP 2CH (A/L) 45.89 ml - LA ESV BP (A/L) 42.35 ml - LA ESV BP (A/L) index 26.63 ml/m2 - LA ESV SP 4CH (MOD) 34.42 ml - LA ESV SP 2CH (MOD) 44.21 ml - LA ESV BP (MOD) 39.82 ml - LA ESV BP (MOD) index 25.05 ml/m2 - Aortic Valve Name Value Normal Range LVOT diameter 1.63 cm - Tricuspid Valve Name Value Normal Range TR Vmax 2.56 m/sec - TR peak gradient 26 mmHg - RAP 3 mmHg - RVSP 29 mmHg - IVC diameter 1.83 cm (1.2 - 2.3) [place]/IV: Voiding Method Incontinent IV Catheter Type [Forearm] Peripheral IV IV Catheter Type [Left Forearm INT / Saline Lock ] IV Catheter Type [Right Peripheral IV Antecubital] IV Catheter Type [Right Hand] Peripheral IV IV Catheter Type [Right Wrist] Peripheral IV IV Catheter Type [Left Wrist] Peripheral IV IV Catheter Type [Left Peripheral IV Antecubital] IV Catheter Type [Right INT / Saline Lock Forearm] IV Catheter Type [Left Hand] Peripheral IV Active Medications - Current Medications Current Medications: Generic Name Dose Route Start Last Admin Trade Name Freq PRN Reason Stop Dose Admin Acetaminophen 650 mg 12/06/19 10:25 02/15/20 22:21 Tylenol FEEDTUBE 650 mg Q6H PRN Administration TEMP >/=100.3 Lipase/Protease/Amylase 1 each 11/23/19 11:[address] 10,500 Unit FEEDTUBE PRN PRN Use w/ sod bicarb for FT Bisacodyl 10 mg 02/06/20 13:57 Dulcolax IN QDAY PRN Constipation unrelieved by MOM Docusate Sodium 100 mg 02/06/20 22:00 02/15/20 22:21 Colace PO Not Given BID LUCHO Glycopyrrolate 2 mg 12/31/19 20:00 02/15/20 22:21 Robinul PO 2 mg TID LUCHO Administration Hydralazine HCl 10 mg 11/24/19 00:45 12/18/19 13:25 Apresoline IV 10 mg Q6H PRN Administration SBP > 160 Hydroxyzine Pamoate 25 mg 12/06/19 10:00 02/15/20 22:21 Vistaril PO 25 mg BID LUCHO Administration Lansoprazole 30 mg 11/27/19 10:00 02/15/20 09:33 Prevacid Solutab FEEDTUBE 30 mg QDAY LUCHO Administration Levalbuterol HCl 0.63 mg 01/24/20 14:00 02/16/20 02:35 Xopenex IH 0.63 mg Q6HRT LUCHO Administration Levetiracetam 500 mg 11/29/19 10:00 02/15/20 22:21 Keppra PO 500 mg BID LUCHO Administration Mirtazapine 30 mg 12/06/19 10:00 02/15/20 09:34 Remeron PO 30 mg DAILY LUCHO Administration Ondansetron HCl 4 mg 12/10/19 07:53 02/05/20 22:06 Zofran IV 4 mg Q4H PRN Administration Nausea And Vomiting Polyethylene Glycol 17 gm 02/06/20 13:57 Miralax 3350 PO QDAY PRN Constipation Quetiapine Fumarate 100 mg 01/09/20 21:41 02/15/20 22:21 Seroquel FEEDTUBE 100 mg QHS LUCHO Administration Scopolamine 1 each 02/08/20 15:00 02/14/20 16:00 Transderm-Scop TD 1 each Q3D LUCHO Administration Sertraline HCl 25 mg 01/01/20 10:00 02/15/20 09:33 Zoloft PO 25 mg QDAY LUCHO Administration Simple Syrup 15 ml 11/23/19 11:50 Simple Syrup FEEDTUBE PRN PRN Hypoglycemia BG<70 Simple Syrup 30 ml 11/23/19 11:50 Simple Syrup FEEDTUBE PRN PRN Hypoglycemia Sodium Bicarbonate 325 mg 11/23/19 11:50 Sodium Bicarbonate FEEDTUBE PRN PRN For Clogged Feeding Tube Nutrition/Malnutrition Assess - Dietary Evaluation Nutrition/Malnutrition Findings: Nutrition Notes Start: 11/23/19 11:29 Freq: Status: Active Protocol: Document 02/14/20 14:45 LM (Rec: 02/14/20 14:48 LM [id number]) Nutrition Notes Initial or Follow up Reassessment Current Diagnosis Hypertension Other Pertinent Diagnosis Cardaic arrest, ETOH dependence, UTI Current Diet Jevity 1.2 at 60ml/hr Labs/Tests Reviewed Pertinent Medications Reviewed Height 5 ft 6 in Weight 49.2 kg [place] Body Weight (kg) 59.09 BMI 17.5 Subjective/Other Information TF running at 60ml/hr and toleratting TF per RN. Percent of energy/protein needs met: 95%/100% Burn Absent Trauma Absent GI Symptoms None Current % PO Negligible Interpretation of Weight Loss (severe) >2% in 1 week Muscle Mass Mild Depletion (non-severe) #2 Nutrition Diagnosis Malnutrition Diagnosis Progress(for reassessment Continues documentation) #1 Nutrition Diagnosis Inadequate oral intake Diagnosis Progress(for reassessment Continues documentation) Is patient on ventilator? No Is Patient Ambulatory and/or Out of Bed No REE-([facility]-confined to bed) 1335.096 Kcal/Kg value to use for calculation 37 Approximate Energy Requirements Using 1820 kcal/Kg Calculation Used for Recommendations Kcal/kg Additional Notes Protein: 60-75g (1.2-1.5g/kg) Fluid: 1 ml/kcal Nutrition Intervention Change Diet Order: Continue TF Nutrition Support: Change to Jevity 1.2 at 60ml/ hr Flush 100ml q4h Kcal 1,728 Protein (gm) 80 Fluid (mL) 1,162 Goal #1 TF tolerance Goal #2 Meet at least 80% of energy and protein needs via TF Anticipated Discharge Needs: TF Follow-Up By: 02/20/20 Additional Comments F/U for TF tolerance, wt
[2020-02-16] MEDS: LANSOPRAZOLE 30 MG SOLUTAB FEEDTUBE SCH (10:30)
[2020-02-16] MEDS: GLYCOPYRROLATE 1 MG TAB PO SCH ×3 (10:30→22:15)
[2020-02-16] MEDS: hydrOXYzine PAMOATE 25 MG CAP PO SCH ×2 (10:30→22:14)
[2020-02-16] MEDS: SERTRALINE 50 MG TAB PO SCH (10:31)
[2020-02-16] MEDS: DOCUSATE SODIUM 100 MG CAP PO SCH ×2 (10:31→22:15)
[2020-02-16] MEDS: MIRTAZAPINE 30 MG TAB PO SCH (10:31)
[2020-02-16] MEDS: levETIRAcetam 500 MG/5 ML ORAL LIQD PO SCH ×2 (10:31→22:14)
[2020-02-16] MEDS: NICOTINE 21 MG/24 HR PATCH TD SCH (14:25)
[2020-02-16] MEDS: QUEtiapine 100 MG TAB FEEDTUBE SCH (22:14)
[2020-02-16] MEDS: ACETAMINOPHEN 325 MG/10.15 ML ORAL LIQD UNIT DOSE FEEDTUBE PRN (22:15)
[2020-02-17] MEDS: ACETYLCYSTEINE 20% 200 MG/1 ML *FOR INHALATION USE INHALATION SCH ×2 (01:41→08:50)
[2020-02-17] MEDS: LEVALBUTEROL 0.63 MG/3 ML NEBU IH SCH ×3 (01:42→15:34)
[2020-02-17 08:57] LABS: Basophils # (Auto) 0.1 K/mm3 (0.0-0.1); Basophils % (Auto) 0.5 % (0.0-1.8); Eosinophils # (Auto) 0.3 K/mm3 (0.0-0.4); Eosinophils % (Auto) 2.5 % (0.0-4.3); Hematocrit 30.8 % (30.3-42.9); Hemoglobin 10.2 gm/dl (10.1-14.3); Lymphocytes # (Auto) 2.7 K/mm3 (1.2-5.4); Lymphocytes % (Auto) 21.3 % (13.4-35.0); Mean Corpuscular HGB Conc 33 % (30-34); Mean Corpuscular Volume 88 fl (79-97); Platelet Count 643 K/mm3 (140-440); Red Blood Count 3.52 M/mm3 (3.65-5.03); Red Cell Distribution Width 15.3 % (13.2-15.2)
--- NOTE | 2020-02-17 08:58 | XRay Report ---
CHEST 1 VIEW INDICATION / CLINICAL INFORMATION: shortness of breath. COMPARISON: 12/23/2019 FINDINGS: SUPPORT DEVICES: Tracheostomy tube HEART / MEDIASTINUM: No significant abnormality. LUNGS / PLEURA: No significant pulmonary or pleural abnormality. No pneumothorax. ADDITIONAL FINDINGS: No significant additional findings. IMPRESSION: 1. No acute findings. Signer Name: Taiwo Flores MD Signed: 02/17/2020 8:54 AM Workstation Name: [id number]
[2020-02-17 09:31] LABS: BUN/Creatinine Ratio 53; Blood Urea Nitrogen 21 mg/dL (7-17); Calcium 10.5 mg/dL (8.4-10.2); Hemolysis Index 6
[2020-02-17] MEDS: SERTRALINE 50 MG TAB PO SCH (10:01)
[2020-02-17] MEDS: GLYCOPYRROLATE 1 MG TAB PO SCH ×3 (10:01→22:05)
[2020-02-17] MEDS: MIRTAZAPINE 30 MG TAB PO SCH (10:02)
[2020-02-17] MEDS: LANSOPRAZOLE 30 MG SOLUTAB FEEDTUBE SCH (10:02)
[2020-02-17] MEDS: DOCUSATE SODIUM 100 MG CAP PO SCH ×2 (10:02→23:46)
[2020-02-17] MEDS: NICOTINE 21 MG/24 HR PATCH TD SCH (10:02)
[2020-02-17] MEDS: levETIRAcetam 500 MG/5 ML ORAL LIQD PO SCH ×2 (10:02→22:05)
[2020-02-17] MEDS: hydrOXYzine PAMOATE 25 MG CAP PO SCH ×2 (10:05→22:05)
[2020-02-17] MEDS: SCOPOLAMINE TRANSDERMAL PATCH 72 HR TD SCH ×2 (10:05→15:02)
--- NOTE | 2020-02-17 10:50 | Progress Note ---
Assessment and Plan Assessment and plan: 54-year-old female with a past medical history of Hypertension, Depression, Tobacco use Disorder, Alcohol use Disorder as confirmed by Daughter and pt's mother presents to the hospital status post cardiac arrest. Patient is from home and family called EMS at 22: 27 for the pt who had told family members that she was not feeling good and c/o her chronic hip pain. She urinated and then was speaking, then she " froze and was rigid " per daughter and she became unresponsive and stopped breathing. Immediately, family began CPR. EMS found pt in PEA. Upon their arrival patient in SinuS Tachycardia.. They were unable to intubate patient with a ET tube because she was clenching down therefore Joe airway placed. Patient received Narcan and Epinephrine. Patient's rhythm changed to PEA to sinus bradycardia, to PEA, then to sinus tach after receiving Narcan and Epinephrine. Per the ED physician who evaluated pt, Patient presented with a pulse, intermittent respirations, and bagging support via Joe airway with O2 sat of 100%. Accu-Chek of 71 obtained by EMS Following admission patient was diagnosed with anoxic brain injury, sepsis with MRSA bacteremia and MSSA pneumonia, alcoholic liver disease. Family member initially wished for full code then changed to DNR, patient treated with IV a ntibiotics for sepsis, status post trach and PEG on 12/13/19. Weaned off from the vent and put on T-piece. Patient is uninsured, waiting for placement, guarded prognosis. Dr. Rodriguez spoke to patient's family (daughter and mother). MOther is Anh Jesus- [phone] and she would like to be called about pt's progress or notified about the pt. No seizure activity was noted. They deny that patient had any preceding infection symptoms, cough, fever, complaints of chest pain, shortness of breath, or any bleeding diathesis, melena, hematochezia, hematuria, hematemesis, or abdominal pain. Patient is a known alcoholic and continues to drink per daughter. No history could be obtained from the pt due to her mechanical ventilation. No previous hx of DVT/PE per mother and daughter. 02/13/2020 continue aggressive pulmonary toilet. Agree with addition of Mucomyst every 72 hours. Continue wound care. Awaiting discussion with family about CODE STATUS this has been initiated by the pulmonary doctor have also advised that I am available if the family would like to combine the hospital. Will obtain psych evaluation for anxiety which is understandable in the patient's current medical condition. 02/13: No clinical change. Continue aggressive therapy and weaning, Pulmonary toilet. 02/14: Psy to see due to hallucinations : The patient does not meet the requirement for acute in patient psychiatric treatment. It is my clinical opinion the patient's mental condition is likely due to complex medical conditions and he would not improve nor benefit from out services at this time. Still pending disposition 02/15: Check labs, Vitals stabilizing, No new seizures reported. Still speaking to self. Continue aggressive pulmonary toilet via Trach. Continue management of wound around the trach with adequate dressing changes. 02/16: Continues on current clinical form still needing aggressive suctioning. Passy-Alena valve trial ongoing unfortunately heart rate goes up to 140s intermittently remains on telemetry monitoring for the same reason. Continue aggressive pulmonary toilet. Lab today shows persistent leukocytosis. No fever noted still with tachycardia yesterday was started on nicotine patch per patient's request according to nursing staff. Will monitor chest x-ray as ordered, reviewed reveals no acute findings. / Anoxic brain injury: suspected CT head: No acute abnormality. EEG ordered showed Generalized slowing. No seizures or epileptiform activity. -Patient now opening her eyes, can speak and able to follow minor command by nodding head /Acute Respiratory failure with hypoxia -s/p Tracheostomy Status post cardiac arrest -s/p intubation, s/p trach and PEG on 12/12 with mechanical ventilation, now on T-piece - CTA was done and negative for PE, - Echo quality is poor, showed diastolic dysfunction - continue weaning as tolerated /Oropharyngeal dysphagia s/p PEG /Persistent Tachycardia -Check TSH and Free T4 /BHAVANA secondary to vasomotor nephropathy /Anemia, microcytic - Status post 3 units PRBC transfusion, H&H low stable /Acute metabolic encephalopathy/toxic encephalopathy due to the above - cont supportive care /Hyperammonemia - likely from liver disease related to EtOH abuse - Patient had elevated ammonia level and treated with lactulose /Metabolic Acidosis -Alcohol ketoacidosis vs hypoprofusion -Continue to monitor /Acute cystitis /ELevated LFTs, stable now - due to ischemic hepatitis. /Leucocytosis with sepsis - Source MRSA bacteremia and MSSA pneumonia. UA showed pyuria. RUQ US showed no ascites. - Repeat TTE negative for vegetation. Completed 7 days of Ceftriaxone on 11/29/2019. -Treated with Abx vancomycin 1 gm IV q 12 hour total 2 week till 12/30/2019 /MSSA pneumonia: Status post vancomycin till 12/30/2019 /ALcohol USe Disorder - given ongoing Alcohol use almost daily, s/p IV Thiamine - monitor /Severe hypokalemia -Repleted /Seizure disorder: treat with Keppra /H. Influenzae, tracheobronchitis, treated with abx /Moderate to severe fecal impaction - will add stool softner /Anxiety disorder: Psych consulted DNR CODE STATUS Disposition: prognosis guarded. Family okay for DNR, PT recommended subacute r ehab, discharge pending on placement. negative for COVID 19 Awaiting Placement to SNF History Interval history: Patient seen and examined, awake, continues to show some type of frustration although answers questions appropriately by nodding head yes or no i ntermittently comprehension still for concern. Still agitated still trying to get out of bed. Hospitalist Physical - Physical exam Narrative exam: General appearance: Present: Mild respiratory distress tracheostomy noted wound around the site increased secretions. - EENT Eyes: PERRL ENT: hearing intact, clear oral mucosa, neck wound around trach. - Neck Neck: supple, normal ROM - Respiratory Respiratory: bilateral: CTA, diminished - Breasts Breasts: normal - Cardiovascular Rhythm: regular Extremities: pulses intact, No edema, normal color, Full ROM - Gastrointestinal General gastrointestinal: Present: soft, non-tender, non-distended, normal bowel sounds, hypoactive bowel sounds - Genitourinary Female genitourinary: normal - Integumentary Integumentary: See wound care documentation of trach wound. - Musculoskeletal Musculoskeletal: generalized weakness - Neurologic Neurologic: focal deficits, intermittent confusion - Constitutional Vitals: Temp Pulse Resp BP Pulse Ox 97.7 F 97 H 18 121/68 90 02/17/20 08:18 02/17/20 08:18 02/17/20 08:18 02/17/20 08:18 02/17/20 08:18 General appearance: Present: no acute distress HEART Score - HEART Score Troponin: Troponin T < 0.010 ng/mL (0.00-0.029) 11/22/19 23:27 Results - Labs CBC & Chem 7: 02/17/20 07:57 05/31/20 07:57 Labs: Laboratory Last Values WBC 12.6 K/mm3 (4.5-11.0) H 02/17/20 07:57 RBC 3.52 M/mm3 (3.65-5.03) L 02/17/20 07:57 Hgb 10.2 gm/dl (10.1-14.3) 02/17/20 07:57 Hct 30.8 % (30.3-42.9) 02/17/20 07:57 MCV 88 fl (79-97) 02/17/20 07:57 MCH 29 pg (28-32) 02/17/20 07:57 MCHC 33 % (30-34) 02/17/20 07:57 RDW 15.3 % (13.2-15.2) H 02/17/20 07:57 Plt Count 643 K/mm3 (140-440) H 02/17/20 07:57 Lymph % (Auto) 21.3 % (13.4-35.0) 02/17/20 07:57 Mclennan % (Auto) 8.0 % (0.0-7.3) H 02/17/20 07:57 Eos % (Auto) 2.5 % (0.0-4.3) 02/17/20 07:57 Baso % (Auto) 0.5 % (0.0-1.8) 02/17/20 07:57 Lymph # 2.7 K/mm3 (1.2-5.4) 02/17/20 07:57 Mclennan # 1.0 K/mm3 (0.0-0.8) H 02/17/20 07:57 Eos # 0.3 K/mm3 (0.0-0.4) 02/17/20 07:57 Baso # 0.1 K/mm3 (0.0-0.1) 02/17/20 07:57 Add Manual Diff Complete 12/25/19 03:47 Total Counted 200 12/25/19 03:47 Seg Neutrophils % 67.7 % (40.0-70.0) 02/17/20 07:57 Seg Neuts % (Manual) 97.5 % (40.0-70.0) H 12/25/19 03:47 Band Neutrophils % 0 % 12/25/19 03:47 Lymphocytes % (Manual) 1.0 % (13.4-35.0) L 12/25/19 03:47 Reactive Lymphs % (Man) 0 % 12/25/19 03:47 Monocytes % (Manual) 1.5 % (0.0-7.3) 12/25/19 03:47 Eosinophils % (Manual) 0 % (0.0-4.3) 12/25/19 03:47 Basophils % (Manual) 0 % (0.0-1.8) 12/25/19 03:47 Metamyelocytes % 0 % 12/25/19 03:47 Myelocytes % 0 % 12/25/19 03:47 Promyelocytes % 0 % 12/25/19 03:47 Blast Cells % 0 % 12/25/19 03:47 Nucleated RBC % Not Reportable 12/25/19 03:47 Seg Neutrophils # 8.5 K/mm3 (1.8-7.7) H 02/17/20 07:57 Seg Neutrophils # Man 35.3 K/mm3 (1.8-7.7) H 12/25/19 03:47 Band Neutrophils # 0.0 K/mm3 12/25/19 03:47 Lymphocytes # (Manual) 0.4 K/mm3 (1.2-5.4) L 12/25/19 03:47 Abs React Lymphs (Man) 0.0 K/mm3 12/25/19 03:47 Monocytes # (Manual) 0.5 K/mm3 (0.0-0.8) 12/25/19 03:47 Eosinophils # (Manual) 0.0 K/mm3 (0.0-0.4) 12/25/19 03:47 Basophils # (Manual) 0.0 K/mm3 (0.0-0.1) 12/25/19 03:47 Metamyelocytes # 0.0 K/mm3 12/25/19 03:47 Myelocytes # 0.0 K/mm3 12/25/19 03:47 Promyelocytes # 0.0 K/mm3 12/25/19 03:47 Blast Cells # 0.0 K/mm3 12/25/19 03:47 Pathologist Review 12/13/19 07:48 WBC Morphology Not Reportable 12/25/19 03:47 Hypersegmented Neuts Not Reportable 12/25/19 03:47 Hyposegmented Neuts Not Reportable 12/25/19 03:47 Hypogranular Neuts Not Reportable 12/25/19 03:47 Smudge Cells Not Reportable 12/25/19 03:47 Toxic Granulation Not Reportable 12/25/19 03:47 Toxic Vacuolation Not Reportable 12/25/19 03:47 Dohle Bodies Not Reportable 12/25/19 03:47 Pelger-Huet Anomaly Not Reportable 12/25/19 03:47 Dominique Rods Not Reportable 12/25/19 03:47 Platelet Estimate Consistent w auto 12/25/19 03:47 Clumped Platelets Not Reportable 12/25/19 03:47 Plt Clumps, EDTA Not Reportable 12/25/19 03:47 Large Platelets Not Reportable 12/25/19 03:47 Giant Platelets Not Reportable 12/25/19 03:47 Platelet Satelliting Not Reportable 12/25/19 03:47 Plt Morphology Comment Not Reportable 12/25/19 03:47 RBC Morphology Not Reportable 12/25/19 03:47 Dimorphic RBCs Not Reportable 12/25/19 03:47 Polychromasia Not Reportable 12/25/19 03:47 Hypochromasia Not Reportable 12/25/19 03:47 Poikilocytosis Not Reportable 12/25/19 03:47 Anisocytosis 1+ 12/25/19 03:47 Microcytosis Not Reportable 12/25/19 03:47 Macrocytosis Not Reportable 12/25/19 03:47 Spherocytes Not Reportable 12/25/19 03:47 Pappenheimer Bodies Not Reportable 12/25/19 03:47 Sickle Cells Not Reportable 12/25/19 03:47 Target Cells Not Reportable 12/25/19 03:47 Tear Drop Cells Not Reportable 12/25/19 03:47 Ovalocytes Not Reportable 12/25/19 03:47 Helmet Cells Not Reportable 12/25/19 03:47 Frias-[place]ome Bodies Not Reportable 12/25/19 03:47 [place] Rings Not Reportable 12/25/19 03:47 Jamshid Cells Not Reportable 12/25/19 03:47 Bite Cells Not Reportable 12/25/19 03:47 Crenated Cell Not Reportable 12/25/19 03:47 Elliptocytes Not Reportable 12/25/19 03:47 Acanthocytes (Spur) Not Reportable 12/25/19 03:47 Rouleaux Not Reportable 12/25/19 03:47 Hemoglobin C Crystals Not Reportable 12/25/19 03:47 Schistocytes Not Reportable 12/25/19 03:47 Malaria parasites Not Reportable 12/25/19 03:47 Gregg Bodies Not Reportable 12/25/19 03:47 Hem Pathologist Commnt No 12/25/19 03:47 PT 17.0 Sec. (12.2-14.9) H 11/23/19 03:47 INR 1.36 (0.87-1.13) H 11/23/19 03:47 APTT 128.2 Sec. (24.2-36.6) H* 11/23/19 03:47 Heparin Anti-Xa Level 0.31 U.I./ml (0.3-0.7) 11/23/19 09:03 ABG pH 7.429 pH Units (7.350-7.450) 01/09/20 08:51 ABG pCO2 39.1 mm Hg 01/09/20 08:51 ABG pO2 94.3 mm Hg (80.0-90.0) H 01/09/20 08:51 ABG HCO3 25.3 mmol/L (20.0-26.0) 01/09/20 08:51 ABG O2 Saturation 97.4 % (95.0-99.0) 01/09/20 08:51 ABG O2 Content 12.9 (0.0-44) 01/09/20 08:51 ABG Base Excess 1.0 mmol/L (-2.0-3.0) 01/09/20 08:51 ABG Hemoglobin 9.5 gm/dl (12.0-16.0) L 01/09/20 08:51 ABG Carboxyhemoglobin 1.3 % (0.0-5.0) 01/09/20 08:51 ABG Methemoglobin 0.4 % (0.0-1.5) 01/09/20 08:51 Oxyhemoglobin 95.7 % (95.0-99.0) 01/09/20 08:51 FiO2 35 % 01/09/20 08:51 Sodium 137 mmol/L (137-145) 02/17/20 07:57 Potassium 4.7 mmol/L (3.6-5.0) 02/17/20 07:57 Chloride 96.9 mmol/L (98-107) L 02/17/20 07:57 Carbon Dioxide 25 mmol/L (22-30) 02/17/20 07:57 Anion Gap 20 mmol/L 02/17/20 07:57 BUN 21 mg/dL (7-17) H 02/17/20 07:57 Creatinine 0.4 mg/dL (0.7-1.2) L 02/17/20 07:57 Estimated GFR > 60 ml/min 02/17/20 07:57 BUN/Creatinine Ratio 53 % 02/17/20 07:57 Glucose 113 mg/dL (65-100) H 02/17/20 07:57 POC Glucose 116 (70-105) H 02/17/20 05:50 Lactic Acid 1.80 mmol/L (0.7-2.0) 11/25/19 05:05 Calcium 10.5 mg/dL (8.4-10.2) H 02/17/20 07:57 Ionized Calcium 4.5 mg/dL (4.8-5.6) L 11/23/19 06:32 Phosphorus 4.20 mg/dL (2.5-4.5) D 11/28/19 08:59 Magnesium 2.30 mg/dL (1.7-2.3) 11/29/19 13:41 Total Bilirubin 0.40 mg/dL (0.1-1.2) 12/13/19 07:48 AST 27 units/L (5-40) 12/13/19 07:48 ALT 26 units/L (7-56) 12/13/19 07:48 Alkaline Phosphatase 316 units/L (35-129) H 12/13/19 07:48 Ammonia 42.0 umol/L (25-60) 11/29/19 13:41 Total Creatine Kinase 139 units/L (30-135) H 11/22/19 23:27 CK-MB (CK-2) 8.3 ng/mL (0.0-4.0) H 11/22/19 23:27 CK-MB (CK-2) Rel Index 5.9 (0-4) H 11/22/19 23:27 Troponin T < 0.010 ng/mL (0.00-0.029) 11/22/19 23:27 Total Protein 6.8 g/dL (6.3-8.2) 12/13/19 07:48 Albumin 2.4 g/dL (3.9-5) L 12/13/19 07:48 Albumin/Globulin Ratio 0.5 % 12/13/19 07:48 Lipase 18 units/L (13-60) 11/23/19 00:34 Procalcitonin 1.09 ng/mL (<0.15) 11/23/19 04:53 TSH 1.010 mlU/mL (0.270-4.200) 02/12/20 07:36 Free T4 1.08 ng/dL (0.76-1.46) 02/12/20 07:36 Urine Color Yellow (Yellow) 12/16/19 Unknown Urine Turbidity Slightly-cloudy (Clear) 12/16/19 Unknown Urine pH 5.0 (5.0-7.0) 12/16/19 Unknown Ur Specific [place] 1.018 (1.003-1.030) 12/16/19 Unknown Urine Protein 30 mg/dl mg/dL (Negative) 12/16/19 Unknown Urine Glucose (UA) Neg mg/dL (Negative) 12/16/19 Unknown Urine Ketones Neg mg/dL (Negative) 12/16/19 Unknown Urine Blood Sm (Negative) 12/16/19 Unknown Urine Nitrite Neg (Negative) 12/16/19 Unknown Urine Bilirubin Neg (Negative) 12/16/19 Unknown Urine Urobilinogen < 2.0 mg/dL (<2.0) 12/16/19 Unknown Ur Leukocyte Esterase Neg (Negative) 12/16/19 Unknown Urine WBC (Auto) 6.0 /HPF (0.0-6.0) 12/16/19 Unknown Urine RBC (Auto) 9.0 /HPF (0.0-6.0) 12/16/19 Unknown U Epithel Cells (Auto) < 1.0 /HPF (0-13.0) 12/16/19 Unknown Urine Bacteria (Auto) 2+ /HPF (Negative) 11/22/19 23:17 Hyaline Casts 3 /LPF 12/16/19 Unknown Granular Casts 3 /LPF 12/16/19 Unknown Urine Mucus Few /HPF 12/16/19 Unknown Vancomycin Trough 33.8 ug/mL (5.0-20.0) H 12/21/19 08:56 Random Vancomycin 16.2 ug/mL (0-40.0) 12/24/19 04:31 Salicylates < 0.3 mg/dL (2.8-20.0) L 11/22/19 23:27 Urine Opiates Screen Presumptive negative 11/22/19 23:17 Urine Methadone Screen Presumptive negative 11/22/19 23:17 Acetaminophen < 5.0 ug/mL (10.0-30.0) L 11/22/19 23:27 Ur Barbiturates Screen Presumptive negative 11/22/19 23:17 Ur Phencyclidine Scrn Presumptive negative 11/22/19 23:17 Ur Amphetamines Screen Presumptive negative 11/22/19 23:17 U Benzodiazepines Scrn Presumptive negative 11/22/19 23:17 Urine Cocaine Screen Presumptive negative 11/22/19 23:17 U Marijuana (THC) Screen Presumptive negative 11/22/19 23:17 Drugs of Abuse Note Disclamer 11/22/19 23:17 Plasma/Serum Alcohol 0.08 % (0-0.07) H 11/22/19 23:27 Coronavirus (PCR) Negative (Negative) 02/05/20 07:50 Hepatitis A IgM Ab Non-reactive (NonReactive) 11/23/19 01:19 Hep Bs Antigen Non-reactive (Negative) 11/23/19 01:19 Hep B Core IgM Ab Non-reactive (NonReactive) 11/23/19 01:19 Hepatitis C Antibody Non-reactive (NonReactive) 11/23/19 01:19 Blood Type O POSITIVE 12/21/19 14:54 Antibody Screen Negative 12/21/19 14:54 Crossmatch See Detail 12/21/19 14:54 - Diagnostic Impressions Diagnostic Impressions: Echocardiogram 11/23/19 03:58 Transthoracic Echocardiogram Indication: Cardiac arrest BP: 131/89 HR: 115 Conclusions *The study quality is technically difficult. *Global left ventricular wall motion and contractility are within normal limits. *The estimated ejection fraction is 55-60%. *Abnormal left ventricular diastolic filling is observed, consistent with impaired relaxation. *There is no pericardial effusion. Findings Procedure Info: The study quality is technically difficult. The study was technically limited due to the patient's inability to lay in the left lateral decubitus position. Left Ventricle: The left ventricular chamber size is normal. There is no left ventricular hypertrophy. Global left ventricular wall motion and contractility are within normal limits. Global left ventricular systolic function is normal. The estimated ejection fraction is 55-60%. Abnormal left ventricular diastolic filling is observed, consistent with impaired relaxation. Left Atrium: The left atrial chamber size is normal. Aortic Valve: The aortic valve leaflets are mildly thickened. Mitral Valve: The mitral valve leaflets are mildly thickened. There is no evidence of mitral regurgitation. Tricuspid Valve: The tricuspid valve leaflets are normal. There is trace tricuspid regurgitation. The right ventricular systolic pressure is calculated at 33 mmHg. Pulmonic Valve: The pulmonic valve appears normal. Pericardium: The pericardium appears normal. There is no pericardial effusion. Aorta: The aorta appears normal. Venous: The inferior vena cava appears normal in size. Measurements Chambers 2D Name Value Normal Range IVSd (2D) 0.94 cm (0.6 - 1.1) LVPWd (2D) 0.81 cm (0.6 - 1.1) LVIDd (2D) 3.6 cm (3.7 - 5.6) LVIDs (2D) 2.27 cm (2 - 3.8) LV FS (2D) 36.93 % - EF Teichholz (2D) 67.76 % - Ao root diameter (2D) 3.03 cm (2 - 3.7) Volumes/Mass Name Value Normal Range LA ESV SP 4CH (A/L) 16.89 ml - LA ESV SP 4CH (MOD) 15.52 ml - Diastolic/Systolic Function Name Value Normal Range MV E-wave Vmax 0.55 m/sec - MV deceleration time 200.89 msec - MV A-wave Vmax 0.68 m/sec - MV E:A ratio 0.82 ratio - Aortic Valve Name Value Normal Range AV Vmax 1.1 m/sec - AV VTI 15.9 cm - AV peak gradient 4.86 mmHg - AV mean gradient 2.59 mmHg - LVOT diameter 2 cm - LVOT Vmax 1.03 m/sec - LVOT VTI 15.87 cm - LVOT peak gradient 4.24 mmHg - LVOT mean gradient 2.41 mmHg - SV LVOT 49.77 ml - JOSÉ MIGUEL (continuity Vmax) 2.93 cm2 - JOSÉ MIGUEL (continuity VTI) 3.13 cm2 - Tricuspid Valve Name Value Normal Range TR Vmax 2.74 m/sec - TR peak gradient 303 mmHg - RAP 3 mmHg - RVSP 33 mmHg - IVC diameter 1.77 cm (1.2 - 2.3) Pulmonic Valve/Qp:Qs Name Value Normal Range PV Vmax 0.77 m/sec - PV peak gradient 2.4 mmHg - PV acceleration time 114.18 msec - Echocardiogram Limited Views 12/17/19 14:53 Transthoracic Echocardiogram Indication: R/O Vegetations BP: 144/83 HR: 133 Conclusions *Global left ventricular systolic function is mildly decreased. *The estimated ejection fraction is 45-50%. *A trivial pericardial effusion is visualized. Findings Left Ventricle: The left ventricular chamber size is normal. Global left ventricular systolic function is mildly decreased. The estimated ejection fraction is 45-50%. Left Atrium: The left atrial chamber size is normal. Right Ventricle: The right ventricular cavity size is normal. Right Atrium: The right atrial cavity size is normal. Aortic Valve: The aortic valve is not well visualized. There is no evidence of aortic regurgitation. Mitral Valve: The mitral valve leaflets are mildly thickened. There is trace of mitral regurgitation. Tricuspid Valve: The tricuspid valve leaflets are mildly thickened. There is trace tricuspid regurgitation. The right ventricular systolic pressure is calculated at 29 mmHg. Pulmonic Valve: The pulmonic valve is not well visualized. There is no evidence of pulmonic regurgitation. Pericardium: A trivial pericardial effusion is visualized. Aorta: There is no dilatation of the ascending aorta. There is no dilatation of the aortic root. Venous: The inferior vena cava appears normal in size. There is a greater than 50% respiratory change in the inferior vena cava dimension. Measurements Chambers 2D Name Value Normal Range IVSd (2D) 0.83 cm (0.6 - 1.1) LVPWd (2D) 0.98 cm (0.6 - 1.1) LVIDd (2D) 3.71 cm (3.7 - 5.6) LVIDs (2D) 2.93 cm (2 - 3.8) LV FS (2D) 21.12 % - EF Teichholz (2D) 43.71 % - Ao root diameter (2D) 3.02 cm (2 - 3.7) Volumes/Mass Name Value Normal Range LA ESV SP 4CH (A/L) 36.8 ml - LA ESV SP 2CH (A/L) 45.89 ml - LA ESV BP (A/L) 42.35 ml - LA ESV BP (A/L) index 26.63 ml/m2 - LA ESV SP 4CH (MOD) 34.42 ml - LA ESV SP 2CH (MOD) 44.21 ml - LA ESV BP (MOD) 39.82 ml - LA ESV BP (MOD) index 25.05 ml/m2 - Aortic Valve Name Value Normal Range LVOT diameter 1.63 cm - Tricuspid Valve Name Value Normal Range TR Vmax 2.56 m/sec - TR peak gradient 26 mmHg - RAP 3 mmHg - RVSP 29 mmHg - IVC diameter 1.83 cm (1.2 - 2.3) Dela Cruz/IV: Voiding Method Incontinent IV Catheter Type [Forearm] Peripheral IV IV Catheter Type [Left Forearm INT / Saline Lock ] IV Catheter Type [Right Peripheral IV Antecubital] IV Catheter Type [Right Hand] Peripheral IV IV Catheter Type [Right Wrist] Peripheral IV IV Catheter Type [Left Wrist] Peripheral IV IV Catheter Type [Left Peripheral IV Antecubital] IV Catheter Type [Right INT / Saline Lock Forearm] IV Catheter Type [Left Hand] Peripheral IV Active Medications - Current Medications Current Medications: Generic Name Dose Route Start Last Admin Trade Name Freq PRN Reason Stop Dose Admin Acetaminophen 650 mg 12/06/19 10:25 02/16/20 22:15 Tylenol FEEDTUBE 650 mg Q6H PRN Administration TEMP >/=100.3 Acetylcysteine 200 mg 02/16/20 20:00 02/17/20 08:50 Mucomyst Inhalation INHALATION 200 mg Q12HRT LUCHO Administration Lipase/Protease/Amylase 1 each 11/23/19 11:[address] 10,500 Unit FEEDTUBE PRN PRN Use w/ sod bicarb for FT Bisacodyl 10 mg 02/06/20 13:57 Dulcolax SD QDAY PRN Constipation unrelieved by MOM Docusate Sodium 100 mg 02/06/20 22:00 02/17/20 10:02 Colace PO Not Given BID LUCHO Glycopyrrolate 2 mg 12/31/19 20:00 02/17/20 10:01 Robinul PO 2 mg TID LUCHO Administration Hydralazine HCl 10 mg 11/24/19 00:45 12/18/19 13:25 Apresoline IV 10 mg Q6H PRN Administration SBP > 160 Hydroxyzine Pamoate 25 mg 12/06/19 10:00 02/17/20 10:05 Vistaril PO 25 mg BID LUCHO Administration Lansoprazole 30 mg 11/27/19 10:00 02/17/20 10:02 Prevacid Solutab FEEDTUBE 30 mg QDAY LUCHO Administration Levalbuterol HCl 0.63 mg 02/17/20 00:00 02/17/20 08:50 Xopenex IH 0.63 mg Q8HRT LUCHO Administration Levetiracetam 500 mg 11/29/19 10:00 02/17/20 10:02 Keppra PO 500 mg BID ULCHO Administration Mirtazapine 30 mg 12/06/19 10:00 02/17/20 10:02 Remeron PO 30 mg DAILY LUCHO Administration Nicotine 21 mg 02/16/20 13:00 02/17/20 10:02 Habitrol TD 21 mg QDAY LUHCO Administration Ondansetron HCl 4 mg 12/10/19 07:53 02/05/20 22:06 Zofran IV 4 mg Q4H PRN Administration Nausea And Vomiting Polyethylene Glycol 17 gm 02/06/20 13:57 Miralax 3350 PO QDAY PRN Constipation Quetiapine Fumarate 100 mg 01/09/20 21:41 02/16/20 22:14 Seroquel FEEDTUBE 100 mg QHS LUCHO Administration Scopolamine 1 each 02/08/20 15:00 02/17/20 10:05 Transderm-Scop TD 1 each Q3D LUCHO Administration Sertraline HCl 25 mg 01/01/20 10:00 02/17/20 10:01 Zoloft PO 25 mg QDAY LUCHO Administration Simple Syrup 15 ml 11/23/19 11:50 Simple Syrup FEEDTUBE PRN PRN Hypoglycemia BG<70 Simple Syrup 30 ml 11/23/19 11:50 Simple Syrup FEEDTUBE PRN PRN Hypoglycemia Sodium Bicarbonate 325 mg 11/23/19 11:50 Sodium Bicarbonate FEEDTUBE PRN PRN For Clogged Feeding Tube Nutrition/Malnutrition Assess - Dietary Evaluation Nutrition/Malnutrition Findings: Nutrition Notes Start: 11/23/19 11:29 Freq: Status: Active Protocol: Document 02/14/20 14:45 LM (Rec: 02/14/20 14:48 LM [email or web address]) Nutrition Notes Initial or Follow up Reassessment Current Diagnosis Hypertension Other Pertinent Diagnosis Cardaic arrest, ETOH dependence, UTI Current Diet Jevity 1.2 at 60ml/hr Labs/Tests Reviewed Pertinent Medications Reviewed Height 5 ft 6 in Weight 49.2 kg [place] Body Weight (kg) 59.09 BMI 17.5 Subjective/Other Information TF running at 60ml/hr and toleratting TF per RN. Percent of energy/protein needs met: 95%/100% Burn Absent Trauma Absent GI Symptoms None Current % PO Negligible Interpretation of Weight Loss (severe) >2% in 1 week Muscle Mass Mild Depletion (non-severe) #2 Nutrition Diagnosis Malnutrition Diagnosis Progress(for reassessment Continues documentation) #1 Nutrition Diagnosis Inadequate oral intake Diagnosis Progress(for reassessment Continues documentation) Is patient on ventilator? No Is Patient Ambulatory and/or Out of Bed No REE-([facility]-confined to bed) 1335.096 Kcal/Kg value to use for calculation 37 Approximate Energy Requirements Using 1820 kcal/Kg Calculation Used for Recommendations Kcal/kg Additional Notes Protein: 60-75g (1.2-1.5g/kg) Fluid: 1 ml/kcal Nutrition Intervention Change Diet Order: Continue TF Nutrition Support: Change to Jevity 1.2 at 60ml/ hr Flush 100ml q4h Kcal 1,728 Protein (gm) 80 Fluid (mL) 1,162 Goal #1 TF tolerance Goal #2 Meet at least 80% of energy and protein needs via TF Anticipated Discharge Needs: TF Follow-Up By: 02/20/20 Additional Comments F/U for TF tolerance, wt
--- NOTE | 2020-02-17 11:14 | Progress Note ---
Assessment and Plan Acute cardiopulmonary arrest with ROSC Acute hypoxemic respiratory failure on MVS Acute metabolic-toxic encephalopathy Metabolic acidosis/alcoholic acidosis/Lactic acidosis Ischemic hepatitis Leucocytosis with lactic acidosis Tobacco use disorder ALcohol use Disorder Hypokalemia High grade fevers - continue scopolamine patch - continue mucomyst nebs - continue PMV trials as tolerated - advance diet per [employer] - no new issues; continue care as below otherwise - repeat CXR prn at this point - Continue to wean supplemental oxygen for target O2 sat's > 90% - continue bronchodilators with routine trach care and pulmonary hygiene per RT - Slow Seroquel taper - consider Provigil - s/p Antibiotics per ID recommendations - continue Reglan for G.I. motility - Continue VTE and Stress ulcer prophylaxis - Continue enteric nutritional support - Monitor glycemic control, with target blood glucose 140-180 mg/dL while critically ill (Avoid hypoglycemia) - ABG and CXR prn - Continue to avoid nephrotoxins, adjust all medications fro GFR and CrCL - Continue to avoid benzodiazepines , as much as possible, to reduce the possibility of delirium - Continue prn analgesia per CPOT score - Continue to maintain of sleep-wake cycle, avoid delirium - PT/OT/ROM exercises- awaiting PT/OT evaluation - Continue mobility protocol and skin assessment per protocol for pressure ulcer prevention - Continue to monitor for clinical seizures - Continue Nicotine withdrawal precautions, alcohol withdrawal precautions - continue other care per attending / other consultants - continue discharge planning ..... re-evaluate in am & prn CONDITION: STABLE PROGNOSIS: IMPROVED CODE STATUS: FULL CODE Subjective Date of service: 02/17/20 Principal diagnosis: Ac cardiopulmonary arrest; Ac hypoxemic resp failure; Acute encephalopathy Interval history: Patient is seen today for: Acute cardiopulmonary arrest with ROSC; Acute hypoxemic respiratory failure; Acute metabolic-toxic encephalopathy; Ischemic hepatitis; Leucocytosis with lactic acidosis; Tobacco use disorder; Alcohol use Disorder; Hypokalemia; High grade fevers Seen and examined at bedside; 24hour events reviewed; nursing and respiratory care staff consulted; no adverse overnight events reported to me; resting peacefully in bed; no new issues; disvharge planning ongoing Objective Vital Signs - 12hr 02/17/20 02/17/20 02/17/20 00:00 00:13 04:23 Temperature 97.7 F Pulse Rate 117 H Pulse Rate [ 112 H Anterior Bilateral Throughout] Respiratory 20 Rate Respiratory 20 Rate [Anterior Bilateral Throughout] Blood Pressure 110/71 O2 Sat by Pulse 99 Oximetry O2 Sat by Pulse 99 Oximetry [ Assessment] 02/17/20 02/17/20 05:10 08:18 Temperature 97.8 F 97.7 F Pulse Rate 101 H 97 H Pulse Rate [ Anterior Bilateral Throughout] Respiratory 20 18 Rate Respiratory Rate [Anterior Bilateral Throughout] Blood Pressure 113/77 121/68 O2 Sat by Pulse 96 90 Oximetry O2 Sat by Pulse Oximetry [ Assessment] Constitutional: no acute distress, other (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, with midline tracheostomy and with normal respiratory effort at rest) Eyes: non-icteric ENT: oropharynx moist, other (s/p trach) Neck: supple, no lymphadenopathy, no JVD Effort: normal Ascultation: Bilateral: diminished breath sounds, rhonchi Percussion: Bilateral: not dull Cardiovascular: regular rate and rhythm (tachycardia), other (S1,S2) Gastrointestinal: normoactive bowel sounds, soft, non-tender, non-distended Integumentary: normal Extremities: no cyanosis, no edema, pulses normal, no ischemia or petechiae Neurologic: normal mental status, non-focal exam, pupils equal and round Psychiatric: mood appropriate, affect normal CBC and BMP: 02/28/20 03:40 02/28/20 03:40 ABG, PT/INR, D-dimer: ABG ABG pH 7.429 pH Units (7.350-7.450) 01/09/20 08:51 ABG pCO2 39.1 mm Hg 01/09/20 08:51 ABG pO2 94.3 mm Hg (80.0-90.0) H 01/09/20 08:51 ABG O2 Saturation 97.4 % (95.0-99.0) 01/09/20 08:51 PT/INR, D-dimer PT 17.0 Sec. (12.2-14.9) H 11/23/19 03:47 INR 1.36 (0.87-1.13) H 11/23/19 03:47 Abnormal lab findings: Abnormal Labs 11/22/19 11/22/19 11/22/19 23:17 23:18 23:27 WBC 21.2 H RBC 3.59 L Hgb 9.8 L Hct MCH 27 L RDW 18.6 H Plt Count 454 H Lymph % (Auto) [place] % (Auto) [place] # Baso # Seg Neutrophils % Seg Neuts % (Manual) 86.0 H Lymphocytes % (Manual) 9.0 L Monocytes % (Manual) Seg Neutrophils # Seg Neutrophils # Man 18.2 H Lymphocytes # (Manual) Monocytes # (Manual) 1.1 H Eosinophils # (Manual) Basophils # (Manual) PT INR APTT ABG pH ABG pO2 ABG HCO3 ABG O2 Saturation ABG Base Excess ABG Hemoglobin Oxyhemoglobin Sodium Potassium Chloride Carbon Dioxide BUN Creatinine Glucose POC Glucose 53 L Lactic Acid Calcium Ionized Calcium Phosphorus Magnesium Total Bilirubin AST ALT Alkaline Phosphatase Ammonia Total Creatine Kinase CK-MB (CK-2) CK-MB (CK-2) Rel Index Total Protein Albumin Urine WBC (Auto) 40.0 H Vancomycin Trough Salicylates Acetaminophen Plasma/Serum Alcohol Crossmatch 11/22/19 11/22/19 11/22/19 23:27 23:27 23:27 WBC RBC Hgb Hct MCH RDW Plt Count Lymph % (Auto) [place] % (Auto) [place] # Baso # Seg Neutrophils % Seg Neuts % (Manual) Lymphocytes % (Manual) Monocytes % (Manual) Seg Neutrophils # Seg Neutrophils # Man Lymphocytes # (Manual) Monocytes # (Manual) Eosinophils # (Manual) Basophils # (Manual) PT INR APTT ABG pH ABG pO2 ABG HCO3 ABG O2 Saturation ABG Base Excess ABG Hemoglobin Oxyhemoglobin Sodium Potassium 2.4 L* Chloride 85.1 L Carbon Dioxide 19 L BUN Creatinine 0.5 L Glucose 261 H POC Glucose Lactic Acid Calcium Ionized Calcium Phosphorus Magnesium Total Bilirubin AST 609 H ALT 152 H Alkaline Phosphatase 160 H Ammonia 117.0 H Total Creatine Kinase 139 H CK-MB (CK-2) 8.3 H CK-MB (CK-2) Rel Index 5.9 H Total Protein Albumin 3.6 L Urine WBC (Auto) Vancomycin Trough Salicylates < 0.3 L Acetaminophen Plasma/Serum Alcohol Crossmatch 11/22/19 11/22/19 11/23/19 23:27 23:27 01:10 WBC RBC Hgb Hct MCH RDW Plt Count Lymph % (Auto) [place] % (Auto) [place] # Baso # Seg Neutrophils % Seg Neuts % (Manual) Lymphocytes % (Manual) Monocytes % (Manual) Seg Neutrophils # Seg Neutrophils # Man Lymphocytes # (Manual) Monocytes # (Manual) Eosinophils # (Manual) Basophils # (Manual) PT INR APTT ABG pH 7.273 L ABG pO2 209.7 H ABG HCO3 ABG O2 Saturation 99.2 H ABG Base Excess -3.9 L ABG Hemoglobin 10.6 L Oxyhemoglobin 93.9 L Sodium Potassium Chloride Carbon Dioxide BUN Creatinine Glucose POC Glucose Lactic Acid Calcium Ionized Calcium Phosphorus Magnesium Total Bilirubin AST ALT Alkaline Phosphatase Ammonia Total Creatine Kinase CK-MB (CK-2) CK-MB (CK-2) Rel Index Total Protein Albumin Urine WBC (Auto) Vancomycin Trough Salicylates Acetaminophen < 5.0 L Plasma/Serum Alcohol 0.08 H Crossmatch 11/23/19 11/23/19 11/23/19 01:19 01:19 03:47 WBC RBC Hgb Hct MCH RDW Plt Count Lymph % (Auto) [place] % (Auto) [place] # Baso # Seg Neutrophils % Seg Neuts % (Manual) Lymphocytes % (Manual) Monocytes % (Manual) Seg Neutrophils # Seg Neutrophils # Man Lymphocytes # (Manual) Monocytes # (Manual) Eosinophils # (Manual) Basophils # (Manual) PT 16.3 H INR 1.29 H APTT ABG pH ABG pO2 ABG HCO3 ABG O2 Saturation ABG Base Excess ABG Hemoglobin Oxyhemoglobin Sodium Potassium Chloride Carbon Dioxide BUN Creatinine Glucose POC Glucose Lactic Acid 2.10 H* 5.00 H* Calcium Ionized Calcium Phosphorus Magnesium Total Bilirubin AST ALT Alkaline Phosphatase Ammonia Total Creatine Kinase CK-MB (CK-2) CK-MB (CK-2) Rel Index Total Protein Albumin Urine WBC (Auto) Vancomycin Trough Salicylates Acetaminophen Plasma/Serum Alcohol Crossmatch 11/23/19 11/23/19 11/23/19 03:47 03:47 04:53 WBC RBC Hgb 9.4 L Hct MCH RDW Plt Count Lymph % (Auto) [place] % (Auto) [place] # Baso # Seg Neutrophils % Seg Neuts % (Manual) Lymphocytes % (Manual) Monocytes % (Manual) Seg Neutrophils # Seg Neutrophils # Man Lymphocytes # (Manual) Monocytes # (Manual) Eosinophils # (Manual) Basophils # (Manual) PT 17.0 H INR 1.36 H APTT 128.2 H* ABG pH ABG pO2 ABG HCO3 ABG O2 Saturation ABG Base Excess ABG Hemoglobin Oxyhemoglobin Sodium Potassium Chloride Carbon Dioxide 18 L BUN Creatinine 0.5 L Glucose 105 H POC Glucose Lactic Acid Calcium 8.3 L Ionized Calcium Phosphorus 2.40 L Magnesium Total Bilirubin 1.30 H AST 761 H ALT 158 H Alkaline Phosphatase 143 H Ammonia Total Creatine Kinase CK-MB (CK-2) CK-MB (CK-2) Rel Index Total Protein Albumin 2.8 L Urine WBC (Auto) Vancomycin Trough Salicylates Acetaminophen Plasma/Serum Alcohol Crossmatch 11/23/19 11/23/19 11/23/19 05:12 06:32 06:32 WBC 16.8 H RBC 3.31 L Hgb 8.9 L Hct 28.7 L MCH 27 L RDW 18.6 H Plt Count Lymph % (Auto) [place] % (Auto) [place] # Baso # Seg Neutrophils % Seg Neuts % (Manual) 94.0 H Lymphocytes % (Manual) 1.0 L Monocytes % (Manual) Seg Neutrophils # Seg Neutrophils # Man 15.8 H Lymphocytes # (Manual) 0.2 L Monocytes # (Manual) Eosinophils # (Manual) Basophils # (Manual) PT INR APTT ABG pH ABG pO2 ABG HCO3 ABG O2 Saturation ABG Base Excess -3.2 L ABG Hemoglobin 9.0 L Oxyhemoglobin 93.6 L Sodium Potassium Chloride Carbon Dioxide BUN Creatinine Glucose POC Glucose Lactic Acid Calcium Ionized Calcium 4.5 L Phosphorus Magnesium Total Bilirubin AST ALT Alkaline Phosphatase Ammonia Total Creatine Kinase CK-MB (CK-2) CK-MB (CK-2) Rel Index Total Protein Albumin Urine WBC (Auto) Vancomycin Trough Salicylates Acetaminophen Plasma/Serum Alcohol Crossmatch 11/23/19 11/24/19 11/24/19 06:32 04:35 04:35 WBC RBC Hgb Hct MCH RDW Plt Count Lymph % (Auto) [place] % (Auto) [place] # Baso # Seg Neutrophils % Seg Neuts % (Manual) Lymphocytes % (Manual) Monocytes % (Manual) Seg Neutrophils # Seg Neutrophils # Man Lymphocytes # (Manual) Monocytes # (Manual) Eosinophils # (Manual) Basophils # (Manual) PT INR APTT ABG pH ABG pO2 ABG HCO3 ABG O2 Saturation ABG Base Excess ABG Hemoglobin Oxyhemoglobin Sodium Potassium Chloride Carbon Dioxide BUN Creatinine Glucose POC Glucose Lactic Acid 3.30 H* Calcium Ionized Calcium Phosphorus Magnesium 1.40 L Total Bilirubin AST ALT Alkaline Phosphatase Ammonia 98.0 H Total Creatine Kinase CK-MB (CK-2) CK-MB (CK-2) Rel Index Total Protein Albumin Urine WBC (Auto) Vancomycin Trough Salicylates Acetaminophen Plasma/Serum Alcohol Crossmatch 11/24/19 11/25/19 11/25/19 05:22 04:34 05:05 WBC 17.3 H RBC 2.88 L Hgb 7.8 L Hct 24.6 L MCH 27 L RDW 18.5 H Plt Count Lymph % (Auto) 7.7 L [place] % (Auto) 9.7 H [place] # 1.7 H Baso # Seg Neutrophils % 82.2 H Seg Neuts % (Manual) Lymphocytes % (Manual) Monocytes % (Manual) Seg Neutrophils # 14.2 H Seg Neutrophils # Man Lymphocytes # (Manual) Monocytes # (Manual) Eosinophils # (Manual) Basophils # (Manual) PT INR APTT ABG pH 7.475 H ABG pO2 ABG HCO3 29.4 H 32.3 H ABG O2 Saturation ABG Base Excess 5.4 H 6.9 H ABG Hemoglobin 9.0 L 10.6 L Oxyhemoglobin 94.3 L Sodium Potassium Chloride Carbon Dioxide BUN Creatinine Glucose POC Glucose Lactic Acid Calcium Ionized Calcium Phosphorus Magnesium Total Bilirubin AST ALT Alkaline Phosphatase Ammonia Total Creatine Kinase CK-MB (CK-2) CK-MB (CK-2) Rel Index Total Protein Albumin Urine WBC (Auto) Vancomycin Trough Salicylates Acetaminophen Plasma/Serum Alcohol Crossmatch 11/25/19 11/25/19 11/26/19 05:05 22:46 03:31 WBC RBC Hgb Hct MCH RDW Plt Count Lymph % (Auto) [place] % (Auto) [place] # Baso # Seg Neutrophils % Seg Neuts % (Manual) Lymphocytes % (Manual) Monocytes % (Manual) Seg Neutrophils # Seg Neutrophils # Man Lymphocytes # (Manual) Monocytes # (Manual) Eosinophils # (Manual) Basophils # (Manual) PT INR APTT ABG pH 7.459 H ABG pO2 ABG HCO3 34.2 H ABG O2 Saturation ABG Base Excess 9.4 H ABG Hemoglobin 7.6 L Oxyhemoglobin 94.8 L Sodium 152 H D 147 H Potassium 2.3 L* D 2.8 L* D Chloride 107.8 H Carbon Dioxide 31 H D 33 H BUN Creatinine 0.6 L 0.6 L Glucose 148 H 177 H POC Glucose Lactic Acid Calcium Ionized Calcium Phosphorus Magnesium Total Bilirubin AST 105 H ALT 71 H Alkaline Phosphatase 155 H Ammonia Total Creatine Kinase CK-MB (CK-2) CK-MB (CK-2) Rel Index Total Protein 5.2 L D Albumin 2.9 L Urine WBC (Auto) Vancomycin Trough Salicylates Acetaminophen Plasma/Serum Alcohol Crossmatch 11/26/19 11/26/19 11/27/19 08:24 08:24 04:20 WBC 12.0 H RBC 3.00 L Hgb 8.0 L 9.3 L Hct 25.9 L 29.7 L MCH 27 L RDW 18.5 H Plt Count Lymph % (Auto) [place] % (Auto) [place] # Baso # Seg Neutrophils % Seg Neuts % (Manual) 89.0 H Lymphocytes % (Manual) 4.0 L Monocytes % (Manual) Seg Neutrophils # Seg Neutrophils # Man 10.7 H Lymphocytes # (Manual) 0.5 L Monocytes # (Manual) Eosinophils # (Manual) Basophils # (Manual) PT INR APTT ABG pH ABG pO2 ABG HCO3 ABG O2 Saturation ABG Base Excess ABG Hemoglobin Oxyhemoglobin Sodium 146 H Potassium 3.4 L D Chloride Carbon Dioxide BUN Creatinine 0.5 L Glucose 165 H POC Glucose Lactic Acid Calcium Ionized Calcium Phosphorus Magnesium Total Bilirubin AST 57 H ALT Alkaline Phosphatase 166 H Ammonia Total Creatine Kinase CK-MB (CK-2) CK-MB (CK-2) Rel Index Total Protein Albumin 2.9 L Urine WBC (Auto) Vancomycin Trough Salicylates Acetaminophen Plasma/Serum Alcohol Crossmatch 11/27/19 11/27/19 11/27/19 04:28 04:28 04:42 WBC RBC Hgb Hct MCH RDW Plt Count Lymph % (Auto) [place] % (Auto) [place] # Baso # Seg Neutrophils % Seg Neuts % (Manual) Lymphocytes % (Manual) Monocytes % (Manual) Seg Neutrophils # Seg Neutrophils # Man Lymphocytes # (Manual) Monocytes # (Manual) Eosinophils # (Manual) Basophils # (Manual) PT INR APTT ABG pH 7.470 H ABG pO2 74.0 L ABG HCO3 33.8 H ABG O2 Saturation ABG Base Excess 9.1 H ABG Hemoglobin 8.7 L Oxyhemoglobin 94.7 L Sodium 146 H Potassium 2.9 L* Chloride Carbon Dioxide BUN 25 H Creatinine Glucose 213 H POC Glucose Lactic Acid Calcium Ionized Calcium Phosphorus 1.00 L Magnesium Total Bilirubin AST ALT Alkaline Phosphatase Ammonia Total Creatine Kinase CK-MB (CK-2) CK-MB (CK-2) Rel Index Total Protein Albumin Urine WBC (Auto) Vancomycin Trough Salicylates Acetaminophen Plasma/Serum Alcohol Crossmatch 11/27/19 11/27/19 11/27/19 05:37 12:20 15:46 WBC RBC Hgb Hct MCH RDW Plt Count Lymph % (Auto) [place] % (Auto) [place] # Baso # Seg Neutrophils % Seg Neuts % (Manual) Lymphocytes % (Manual) Monocytes % (Manual) Seg Neutrophils # Seg Neutrophils # Man Lymphocytes # (Manual) Monocytes # (Manual) Eosinophils # (Manual) Basophils # (Manual) PT INR APTT ABG pH ABG pO2 ABG HCO3 ABG O2 Saturation ABG Base Excess ABG Hemoglobin Oxyhemoglobin Sodium 146 H Potassium 3.5 L D Chloride Carbon Dioxide BUN 24 H Creatinine 0.6 L Glucose 187 H POC Glucose 117 H 220 H Lactic Acid Calcium Ionized Calcium Phosphorus Magnesium Total Bilirubin AST ALT Alkaline Phosphatase Ammonia Total Creatine Kinase CK-MB (CK-2) CK-MB (CK-2) Rel Index Total Protein Albumin Urine WBC (Auto) Vancomycin Trough Salicylates Acetaminophen Plasma/Serum Alcohol Crossmatch 11/27/19 11/28/19 11/28/19 17:28 05:00 05:02 WBC RBC Hgb Hct MCH RDW Plt Count Lymph % (Auto) [place] % (Auto) [place] # Baso # Seg Neutrophils % Seg Neuts % (Manual) Lymphocytes % (Manual) Monocytes % (Manual) Seg Neutrophils # Seg Neutrophils # Man Lymphocytes # (Manual) Monocytes # (Manual) Eosinophils # (Manual) Basophils # (Manual) PT INR APTT ABG pH ABG pO2 72.4 L ABG HCO3 33.6 H ABG O2 Saturation 94.1 L ABG Base Excess 7.3 H ABG Hemoglobin Oxyhemoglobin 91.8 L Sodium 146 H Potassium 3.3 L Chloride Carbon Dioxide BUN 25 H Creatinine 0.6 L Glucose 176 H POC Glucose 198 H Lactic Acid Calcium Ionized Calcium Phosphorus Magnesium Total Bilirubin AST ALT Alkaline Phosphatase Ammonia Total Creatine Kinase CK-MB (CK-2) CK-MB (CK-2) Rel Index Total Protein Albumin Urine WBC (Auto) Vancomycin Trough Salicylates Acetaminophen Plasma/Serum Alcohol Crossmatch 11/28/19 11/28/19 11/29/19 05:02 18:55 10:43 WBC 15.2 H 19.0 H RBC 3.06 L 3.01 L Hgb 8.3 L 8.3 L Hct 27.0 L 26.4 L MCH 27 L RDW 19.0 H 19.7 H Plt Count 479 H 611 H Lymph % (Auto) [place] % (Auto) [place] # Baso # Seg Neutrophils % Seg Neuts % (Manual) 92.0 H Lymphocytes % (Manual) 2.0 L Monocytes % (Manual) Seg Neutrophils # Seg Neutrophils # Man 14.0 H Lymphocytes # (Manual) 0.3 L Monocytes # (Manual) Eosinophils # (Manual) Basophils # (Manual) PT INR APTT ABG pH ABG pO2 ABG HCO3 ABG O2 Saturation ABG Base Excess ABG Hemoglobin Oxyhemoglobin Sodium Potassium Chloride Carbon Dioxide BUN Creatinine Glucose POC Glucose 138 H Lactic Acid Calcium Ionized Calcium Phosphorus Magnesium Total Bilirubin AST ALT Alkaline Phosphatase Ammonia Total Creatine Kinase CK-MB (CK-2) CK-MB (CK-2) Rel Index Total Protein Albumin Urine WBC (Auto) Vancomycin Trough Salicylates Acetaminophen Plasma/Serum Alcohol Crossmatch 11/29/19 11/29/19 11/29/19 10:43 12:27 19:25 WBC RBC Hgb Hct MCH RDW Plt Count Lymph % (Auto) [place] % (Auto) [place] # Baso # Seg Neutrophils % Seg Neuts % (Manual) Lymphocytes % (Manual) Monocytes % (Manual) Seg Neutrophils # Seg Neutrophils # Man Lymphocytes # (Manual) Monocytes # (Manual) Eosinophils # (Manual) Basophils # (Manual) PT INR APTT ABG pH ABG pO2 ABG HCO3 ABG O2 Saturation ABG Base Excess ABG Hemoglobin Oxyhemoglobin Sodium Potassium 2.8 L* Chloride Carbon Dioxide BUN 20 H Creatinine 0.5 L Glucose 121 H POC Glucose 128 H 120 H Lactic Acid Calcium Ionized Calcium Phosphorus Magnesium Total Bilirubin AST ALT Alkaline Phosphatase Ammonia Total Creatine Kinase CK-MB (CK-2) CK-MB (CK-2) Rel Index Total Protein Albumin Urine WBC (Auto) Vancomycin Trough Salicylates Acetaminophen Plasma/Serum Alcohol Crossmatch 11/29/19 11/30/19 11/30/19 23:46 04:10 05:02 WBC RBC Hgb Hct MCH RDW Plt Count Lymph % (Auto) [place] % (Auto) [place] # Baso # Seg Neutrophils % Seg Neuts % (Manual) Lymphocytes % (Manual) Monocytes % (Manual) Seg Neutrophils # Seg Neutrophils # Man Lymphocytes # (Manual) Monocytes # (Manual) Eosinophils # (Manual) Basophils # (Manual) PT INR APTT ABG pH ABG pO2 76.3 L ABG HCO3 32.5 H ABG O2 Saturation ABG Base Excess 6.9 H ABG Hemoglobin 8.0 L Oxyhemoglobin 92.6 L Sodium Potassium Chloride Carbon Dioxide BUN Creatinine Glucose POC Glucose 116 H 128 H Lactic Acid Calcium Ionized Calcium Phosphorus Magnesium Total Bilirubin AST ALT Alkaline Phosphatase Ammonia Total Creatine Kinase CK-MB (CK-2) CK-MB (CK-2) Rel Index Total Protein Albumin Urine WBC (Auto) Vancomycin Trough Salicylates Acetaminophen Plasma/Serum Alcohol Crossmatch 11/30/19 11/30/19 11/30/19 05:25 05:25 12:59 WBC 18.4 H RBC 3.10 L Hgb 8.5 L Hct 27.5 L MCH 27 L RDW 20.9 H Plt Count 691 H Lymph % (Auto) 7.1 L [place] % (Auto) 7.7 H [place] # 1.4 H Baso # Seg Neutrophils % 83.4 H Seg Neuts % (Manual) Lymphocytes % (Manual) Monocytes % (Manual) Seg Neutrophils # 15.4 H Seg Neutrophils # Man Lymphocytes # (Manual) Monocytes # (Manual) Eosinophils # (Manual) Basophils # (Manual) PT INR APTT ABG pH ABG pO2 ABG HCO3 ABG O2 Saturation ABG Base Excess ABG Hemoglobin Oxyhemoglobin Sodium 146 H Potassium Chloride 107.2 H Carbon Dioxide BUN Creatinine 0.5 L Glucose 132 H POC Glucose 124 H Lactic Acid Calcium Ionized Calcium Phosphorus Magnesium Total Bilirubin AST 246 H ALT 274 H Alkaline Phosphatase 203 H Ammonia Total Creatine Kinase CK-MB (CK-2) CK-MB (CK-2) Rel Index Total Protein 5.4 L Albumin 2.9 L Urine WBC (Auto) Vancomycin Trough Salicylates Acetaminophen Plasma/Serum Alcohol Crossmatch 11/30/19 12/01/19 12/01/19 17:53 00:05 05:10 WBC RBC Hgb Hct MCH RDW Plt Count Lymph % (Auto) [place] % (Auto) [place] # Baso # Seg Neutrophils % Seg Neuts % (Manual) Lymphocytes % (Manual) Monocytes % (Manual) Seg Neutrophils # Seg Neutrophils # Man Lymphocytes # (Manual) Monocytes # (Manual) Eosinophils # (Manual) Basophils # (Manual) PT INR APTT ABG pH ABG pO2 ABG HCO3 ABG O2 Saturation ABG Base Excess ABG Hemoglobin Oxyhemoglobin Sodium Potassium Chloride Carbon Dioxide BUN Creatinine Glucose POC Glucose 113 H 143 H 145 H Lactic Acid Calcium Ionized Calcium Phosphorus Magnesium Total Bilirubin AST ALT Alkaline Phosphatase Ammonia Total Creatine Kinase CK-MB (CK-2) CK-MB (CK-2) Rel Index Total Protein Albumin Urine WBC (Auto) Vancomycin Trough Salicylates Acetaminophen Plasma/Serum Alcohol Crossmatch 12/01/19 12/01/19 12/01/19 05:33 08:23 08:23 WBC 22.7 H RBC 2.88 L Hgb 7.9 L Hct 25.2 L MCH 27 L RDW 21.0 H Plt Count 732 H Lymph % (Auto) [place] % (Auto) [place] # Baso # Seg Neutrophils % Seg Neuts % (Manual) 91.0 H Lymphocytes % (Manual) 3.0 L Monocytes % (Manual) Seg Neutrophils # Seg Neutrophils # Man 20.7 H Lymphocytes # (Manual) 0.7 L Monocytes # (Manual) 1.1 H Eosinophils # (Manual) Basophils # (Manual) PT INR APTT ABG pH ABG pO2 68.6 L ABG HCO3 34.1 H ABG O2 Saturation ABG Base Excess 9.0 H ABG Hemoglobin 6.5 L Oxyhemoglobin 94.7 L Sodium Potassium Chloride Carbon Dioxide BUN Creatinine 0.5 L Glucose 125 H POC Glucose Lactic Acid Calcium Ionized Calcium Phosphorus Magnesium Total Bilirubin AST ALT Alkaline Phosphatase Ammonia Total Creatine Kinase CK-MB (CK-2) CK-MB (CK-2) Rel Index Total Protein Albumin Urine WBC (Auto) Vancomycin Trough Salicylates Acetaminophen Plasma/Serum Alcohol Crossmatch 12/01/19 12/01/19 12/01/19 13:21 17:54 20:59 WBC RBC Hgb Hct MCH RDW Plt Count Lymph % (Auto) [place] % (Auto) [place] # Baso # Seg Neutrophils % Seg Neuts % (Manual) Lymphocytes % (Manual) Monocytes % (Manual) Seg Neutrophils # Seg Neutrophils # Man Lymphocytes # (Manual) Monocytes # (Manual) Eosinophils # (Manual) Basophils # (Manual) PT INR APTT ABG pH ABG pO2 78.3 L ABG HCO3 33.8 H ABG O2 Saturation 94.9 L ABG Base Excess 7.9 H ABG Hemoglobin 11.5 L Oxyhemoglobin 92.3 L Sodium Potassium Chloride Carbon Dioxide BUN Creatinine Glucose POC Glucose 111 H 115 H Lactic Acid Calcium Ionized Calcium Phosphorus Magnesium Total Bilirubin AST ALT Alkaline Phosphatase Ammonia Total Creatine Kinase CK-MB (CK-2) CK-MB (CK-2) Rel Index Total Protein Albumin Urine WBC (Auto) Vancomycin Trough Salicylates Acetaminophen Plasma/Serum Alcohol Crossmatch 12/02/19 12/03/19 12/04/19 12:55 20:00 04:26 WBC 15.2 H RBC 2.69 L Hgb 7.4 L Hct 23.6 L MCH 27 L RDW 19.9 H Plt Count 838 H Lymph % (Auto) [place] % (Auto) [place] # Baso # Seg Neutrophils % Seg Neuts % (Manual) Lymphocytes % (Manual) Monocytes % (Manual) Seg Neutrophils # Seg Neutrophils # Man Lymphocytes # (Manual) Monocytes # (Manual) Eosinophils # (Manual) Basophils # (Manual) PT INR APTT ABG pH ABG pO2 68.3 L ABG HCO3 33.5 H ABG O2 Saturation 93.5 L ABG Base Excess 8.4 H ABG Hemoglobin 7.3 L Oxyhemoglobin 90.9 L Sodium Potassium Chloride Carbon Dioxide BUN Creatinine Glucose POC Glucose 107 H Lactic Acid Calcium Ionized Calcium Phosphorus Magnesium Total Bilirubin AST ALT Alkaline Phosphatase Ammonia Total Creatine Kinase CK-MB (CK-2) CK-MB (CK-2) Rel Index Total Protein Albumin Urine WBC (Auto) Vancomycin Trough Salicylates Acetaminophen Plasma/Serum Alcohol Crossmatch 12/04/19 12/04/19 12/04/19 04:26 07:45 12:02 WBC 15.9 H RBC 2.88 L Hgb 7.9 L Hct 25.1 L MCH RDW 20.4 H Plt Count 839 H Lymph % (Auto) 11.3 L [place] % (Auto) 15.2 H [place] # 2.4 H Baso # Seg Neutrophils % 72.4 H Seg Neuts % (Manual) Lymphocytes % (Manual) Monocytes % (Manual) Seg Neutrophils # 11.5 H Seg Neutrophils # Man Lymphocytes # (Manual) Monocytes # (Manual) Eosinophils # (Manual) Basophils # (Manual) PT INR APTT ABG pH ABG pO2 ABG HCO3 ABG O2 Saturation ABG Base Excess ABG Hemoglobin Oxyhemoglobin Sodium Potassium Chloride 96.5 L Carbon Dioxide BUN 21 H Creatinine 0.6 L Glucose 107 H POC Glucose 138 H Lactic Acid Calcium Ionized Calcium Phosphorus Magnesium Total Bilirubin AST ALT Alkaline Phosphatase Ammonia Total Creatine Kinase CK-MB (CK-2) CK-MB (CK-2) Rel Index Total Protein Albumin Urine WBC (Auto) Vancomycin Trough Salicylates Acetaminophen Plasma/Serum Alcohol Crossmatch 12/04/19 12/05/19 12/05/19 18:16 11:55 18:36 WBC RBC Hgb Hct MCH RDW Plt Count Lymph % (Auto) [place] % (Auto) [place] # Baso # Seg Neutrophils % Seg Neuts % (Manual) Lymphocytes % (Manual) Monocytes % (Manual) Seg Neutrophils # Seg Neutrophils # Man Lymphocytes # (Manual) Monocytes # (Manual) Eosinophils # (Manual) Basophils # (Manual) PT INR APTT ABG pH ABG pO2 ABG HCO3 ABG O2 Saturation ABG Base Excess ABG Hemoglobin Oxyhemoglobin Sodium Potassium Chloride Carbon Dioxide BUN Creatinine Glucose POC Glucose 135 H 125 H 135 H Lactic Acid Calcium Ionized Calcium Phosphorus Magnesium Total Bilirubin AST ALT Alkaline Phosphatase Ammonia Total Creatine Kinase CK-MB (CK-2) CK-MB (CK-2) Rel Index Total Protein Albumin Urine WBC (Auto) Vancomycin Trough Salicylates Acetaminophen Plasma/Serum Alcohol Crossmatch 12/05/19 12/06/19 12/06/19 23:30 04:14 05:43 WBC RBC Hgb Hct MCH RDW Plt Count Lymph % (Auto) [place] % (Auto) [place] # Baso # Seg Neutrophils % Seg Neuts % (Manual) Lymphocytes % (Manual) Monocytes % (Manual) Seg Neutrophils # Seg Neutrophils # Man Lymphocytes # (Manual) Monocytes # (Manual) Eosinophils # (Manual) Basophils # (Manual) PT INR APTT ABG pH ABG pO2 ABG HCO3 ABG O2 Saturation ABG Base Excess ABG Hemoglobin Oxyhemoglobin Sodium Potassium 5.6 H Chloride 95.0 L Carbon Dioxide BUN 48 H Creatinine 1.3 H D Glucose POC Glucose 126 H 121 H Lactic Acid Calcium Ionized Calcium Phosphorus Magnesium Total Bilirubin AST 89 H ALT 98 H Alkaline Phosphatase 476 H Ammonia Total Creatine Kinase CK-MB (CK-2) CK-MB (CK-2) Rel Index Total Protein Albumin 2.8 L Urine WBC (Auto) Vancomycin Trough Salicylates Acetaminophen Plasma/Serum Alcohol Crossmatch 12/06/19 12/06/19 12/07/19 10:39 14:34 00:19 WBC 17.3 H RBC 2.60 L Hgb 7.1 L Hct 22.7 L MCH 27 L RDW 20.1 H Plt Count 832 H Lymph % (Auto) [place] % (Auto) [place] # Baso # Seg Neutrophils % Seg Neuts % (Manual) Lymphocytes % (Manual) Monocytes % (Manual) Seg Neutrophils # Seg Neutrophils # Man Lymphocytes # (Manual) Monocytes # (Manual) Eosinophils # (Manual) Basophils # (Manual) PT INR APTT ABG pH ABG pO2 ABG HCO3 ABG O2 Saturation ABG Base Excess ABG Hemoglobin Oxyhemoglobin Sodium Potassium Chloride Carbon Dioxide BUN Creatinine Glucose POC Glucose 128 H 136 H Lactic Acid Calcium Ionized Calcium Phosphorus Magnesium Total Bilirubin AST ALT Alkaline Phosphatase Ammonia Total Creatine Kinase CK-MB (CK-2) CK-MB (CK-2) Rel Index Total Protein Albumin Urine WBC (Auto) Vancomycin Trough Salicylates Acetaminophen Plasma/Serum Alcohol Crossmatch 12/07/19 12/07/19 12/07/19 03:44 03:44 05:53 WBC 16.2 H RBC 2.56 L Hgb 7.1 L Hct 22.3 L MCH RDW 19.4 H Plt Count 782 H Lymph % (Auto) [place] % (Auto) [place] # Baso # Seg Neutrophils % Seg Neuts % (Manual) Lymphocytes % (Manual) Monocytes % (Manual) Seg Neutrophils # Seg Neutrophils # Man Lymphocytes # (Manual) Monocytes # (Manual) Eosinophils # (Manual) Basophils # (Manual) PT INR APTT ABG pH ABG pO2 ABG HCO3 ABG O2 Saturation ABG Base Excess ABG Hemoglobin Oxyhemoglobin Sodium Potassium Chloride 95.6 L Carbon Dioxide BUN 56 H Creatinine 1.4 H Glucose 120 H POC Glucose 128 H Lactic Acid Calcium 10.3 H Ionized Calcium Phosphorus Magnesium Total Bilirubin AST ALT Alkaline Phosphatase Ammonia Total Creatine Kinase CK-MB (CK-2) CK-MB (CK-2) Rel Index Total Protein Albumin Urine WBC (Auto) Vancomycin Trough Salicylates Acetaminophen Plasma/Serum Alcohol Crossmatch 12/07/19 12/07/19 12/08/19 12:54 23:47 00:20 WBC RBC Hgb Hct MCH RDW Plt Count Lymph % (Auto) [place] % (Auto) [place] # Baso # Seg Neutrophils % Seg Neuts % (Manual) Lymphocytes % (Manual) Monocytes % (Manual) Seg Neutrophils # Seg Neutrophils # Man Lymphocytes # (Manual) Monocytes # (Manual) Eosinophils # (Manual) Basophils # (Manual) PT INR APTT ABG pH ABG pO2 ABG HCO3 ABG O2 Saturation ABG Base Excess ABG Hemoglobin Oxyhemoglobin Sodium Potassium Chloride Carbon Dioxide BUN Creatinine Glucose POC Glucose 128 H 130 H 124 H Lactic Acid Calcium Ionized Calcium Phosphorus Magnesium Total Bilirubin AST ALT Alkaline Phosphatase Ammonia Total Creatine Kinase CK-MB (CK-2) CK-MB (CK-2) Rel Index Total Protein Albumin Urine WBC (Auto) Vancomycin Trough Salicylates Acetaminophen Plasma/Serum Alcohol Crossmatch 12/08/19 12/08/19 12/08/19 06:38 12:04 18:26 WBC RBC Hgb Hct MCH RDW Plt Count Lymph % (Auto) [place] % (Auto) [place] # Baso # Seg Neutrophils % Seg Neuts % (Manual) Lymphocytes % (Manual) Monocytes % (Manual) Seg Neutrophils # Seg Neutrophils # Man Lymphocytes # (Manual) Monocytes # (Manual) Eosinophils # (Manual) Basophils # (Manual) PT INR APTT ABG pH ABG pO2 ABG HCO3 ABG O2 Saturation ABG Base Excess ABG Hemoglobin Oxyhemoglobin Sodium Potassium Chloride Carbon Dioxide BUN Creatinine Glucose POC Glucose 137 H 129 H 150 H Lactic Acid Calcium Ionized Calcium Phosphorus Magnesium Total Bilirubin AST ALT Alkaline Phosphatase Ammonia Total Creatine Kinase CK-MB (CK-2) CK-MB (CK-2) Rel Index Total Protein Albumin Urine WBC (Auto) Vancomycin Trough Salicylates Acetaminophen Plasma/Serum Alcohol Crossmatch 12/09/19 12/09/19 12/09/19 00:56 05:34 06:13 WBC RBC Hgb Hct MCH RDW Plt Count Lymph % (Auto) [place] % (Auto) [place] # Baso # Seg Neutrophils % Seg Neuts % (Manual) Lymphocytes % (Manual) Monocytes % (Manual) Seg Neutrophils # Seg Neutrophils # Man Lymphocytes # (Manual) Monocytes # (Manual) Eosinophils # (Manual) Basophils # (Manual) PT INR APTT ABG pH ABG pO2 ABG HCO3 ABG O2 Saturation ABG Base Excess ABG Hemoglobin Oxyhemoglobin Sodium 146 H Potassium Chloride Carbon Dioxide BUN 66 H Creatinine 1.9 H Glucose 116 H POC Glucose 130 H 130 H Lactic Acid Calcium Ionized Calcium Phosphorus Magnesium Total Bilirubin AST ALT Alkaline Phosphatase Ammonia Total Creatine Kinase CK-MB (CK-2) CK-MB (CK-2) Rel Index Total Protein Albumin Urine WBC (Auto) Vancomycin Trough Salicylates Acetaminophen Plasma/Serum Alcohol Crossmatch 12/09/19 12/09/19 12/10/19 11:52 17:50 00:14 WBC RBC Hgb Hct MCH RDW Plt Count Lymph % (Auto) [place] % (Auto) [place] # Baso # Seg Neutrophils % Seg Neuts % (Manual) Lymphocytes % (Manual) Monocytes % (Manual) Seg Neutrophils # Seg Neutrophils # Man Lymphocytes # (Manual) Monocytes # (Manual) Eosinophils # (Manual) Basophils # (Manual) PT INR APTT ABG pH ABG pO2 ABG HCO3 ABG O2 Saturation ABG Base Excess ABG Hemoglobin Oxyhemoglobin Sodium Potassium Chloride Carbon Dioxide BUN Creatinine Glucose POC Glucose 135 H 120 H 116 H Lactic Acid Calcium Ionized Calcium Phosphorus Magnesium Total Bilirubin AST ALT Alkaline Phosphatase Ammonia Total Creatine Kinase CK-MB (CK-2) CK-MB (CK-2) Rel Index Total Protein Albumin Urine WBC (Auto) Vancomycin Trough Salicylates Acetaminophen Plasma/Serum Alcohol Crossmatch 12/10/19 12/10/19 12/10/19 05:38 11:38 17:34 WBC RBC Hgb Hct MCH RDW Plt Count Lymph % (Auto) [place] % (Auto) [place] # Baso # Seg Neutrophils % Seg Neuts % (Manual) Lymphocytes % (Manual) Monocytes % (Manual) Seg Neutrophils # Seg Neutrophils # Man Lymphocytes # (Manual) Monocytes # (Manual) Eosinophils # (Manual) Basophils # (Manual) PT INR APTT ABG pH ABG pO2 ABG HCO3 ABG O2 Saturation ABG Base Excess ABG Hemoglobin Oxyhemoglobin Sodium Potassium Chloride Carbon Dioxide BUN Creatinine Glucose POC Glucose 115 H 112 H 130 H Lactic Acid Calcium Ionized Calcium Phosphorus Magnesium Total Bilirubin AST ALT Alkaline Phosphatase Ammonia Total Creatine Kinase CK-MB (CK-2) CK-MB (CK-2) Rel Index Total Protein Albumin Urine WBC (Auto) Vancomycin Trough Salicylates Acetaminophen Plasma/Serum Alcohol Crossmatch 12/11/19 12/11/19 12/11/19 00:20 05:31 12:22 WBC RBC Hgb Hct MCH RDW Plt Count Lymph % (Auto) [place] % (Auto) [place] # Baso # Seg Neutrophils % Seg Neuts % (Manual) Lymphocytes % (Manual) Monocytes % (Manual) Seg Neutrophils # Seg Neutrophils # Man Lymphocytes # (Manual) Monocytes # (Manual) Eosinophils # (Manual) Basophils # (Manual) PT INR APTT ABG pH ABG pO2 ABG HCO3 ABG O2 Saturation ABG Base Excess ABG Hemoglobin Oxyhemoglobin Sodium Potassium Chloride Carbon Dioxide BUN Creatinine Glucose POC Glucose 124 H 132 H 128 H Lactic Acid Calcium Ionized Calcium Phosphorus Magnesium Total Bilirubin AST ALT Alkaline Phosphatase Ammonia Total Creatine Kinase CK-MB (CK-2) CK-MB (CK-2) Rel Index Total Protein Albumin Urine WBC (Auto) Vancomycin Trough Salicylates Acetaminophen Plasma/Serum Alcohol Crossmatch 12/11/19 12/11/19 12/12/19 18:04 23:42 03:51 WBC RBC Hgb Hct MCH RDW Plt Count Lymph % (Auto) [place] % (Auto) [place] # Baso # Seg Neutrophils % Seg Neuts % (Manual) Lymphocytes % (Manual) Monocytes % (Manual) Seg Neutrophils # Seg Neutrophils # Man Lymphocytes # (Manual) Monocytes # (Manual) Eosinophils # (Manual) Basophils # (Manual) PT INR APTT ABG pH ABG pO2 ABG HCO3 ABG O2 Saturation ABG Base Excess ABG Hemoglobin Oxyhemoglobin Sodium 149 H Potassium Chloride Carbon Dioxide 20 L D BUN 77 H Creatinine 2.8 H Glucose POC Glucose 133 H 154 H Lactic Acid Calcium Ionized Calcium Phosphorus Magnesium Total Bilirubin AST ALT Alkaline Phosphatase Ammonia Total Creatine Kinase CK-MB (CK-2) CK-MB (CK-2) Rel Index Total Protein Albumin Urine WBC (Auto) Vancomycin Trough Salicylates Acetaminophen Plasma/Serum Alcohol Crossmatch 12/12/19 12/12/19 12/12/19 05:18 05:26 10:30 WBC 18.0 H RBC 2.51 L Hgb 6.8 L Hct 22.0 L MCH 27 L RDW 19.9 H Plt Count 582 H Lymph % (Auto) [place] % (Auto) [place] # Baso # Seg Neutrophils % Seg Neuts % (Manual) Lymphocytes % (Manual) Monocytes % (Manual) Seg Neutrophils # Seg Neutrophils # Man Lymphocytes # (Manual) Monocytes # (Manual) Eosinophils # (Manual) Basophils # (Manual) PT INR APTT ABG pH ABG pO2 ABG HCO3 ABG O2 Saturation ABG Base Excess ABG Hemoglobin Oxyhemoglobin Sodium Potassium Chloride Carbon Dioxide BUN Creatinine Glucose POC Glucose 135 H Lactic Acid Calcium Ionized Calcium Phosphorus Magnesium Total Bilirubin AST ALT Alkaline Phosphatase Ammonia Total Creatine Kinase CK-MB (CK-2) CK-MB (CK-2) Rel Index Total Protein Albumin Urine WBC (Auto) Vancomycin Trough Salicylates Acetaminophen Plasma/Serum Alcohol Crossmatch See Detail 12/12/19 12/12/19 12/12/19 11:44 18:10 23:21 WBC RBC Hgb Hct MCH RDW Plt Count Lymph % (Auto) [place] % (Auto) [place] # Baso # Seg Neutrophils % Seg Neuts % (Manual) Lymphocytes % (Manual) Monocytes % (Manual) Seg Neutrophils # Seg Neutrophils # Man Lymphocytes # (Manual) Monocytes # (Manual) Eosinophils # (Manual) Basophils # (Manual) PT INR APTT ABG pH ABG pO2 ABG HCO3 ABG O2 Saturation ABG Base Excess ABG Hemoglobin Oxyhemoglobin Sodium Potassium Chloride Carbon Dioxide BUN Creatinine Glucose POC Glucose 108 H 107 H 126 H Lactic Acid Calcium Ionized Calcium Phosphorus Magnesium Total Bilirubin AST ALT Alkaline Phosphatase Ammonia Total Creatine Kinase CK-MB (CK-2) CK-MB (CK-2) Rel Index Total Protein Albumin Urine WBC (Auto) Vancomycin Trough Salicylates Acetaminophen Plasma/Serum Alcohol Crossmatch 12/13/19 12/13/19 12/13/19 05:41 07:48 07:48 WBC 38.3 H RBC 2.37 L Hgb 6.3 L Hct 20.9 L MCH 27 L RDW 20.2 H Plt Count 546 H Lymph % (Auto) [place] % (Auto) [place] # Baso # Seg Neutrophils % Seg Neuts % (Manual) 93.0 H Lymphocytes % (Manual) 1.0 L Monocytes % (Manual) Seg Neutrophils # Seg Neutrophils # Man 35.6 H Lymphocytes # (Manual) 0.4 L Monocytes # (Manual) Eosinophils # (Manual) Basophils # (Manual) 0.4 H PT INR APTT ABG pH ABG pO2 ABG HCO3 ABG O2 Saturation ABG Base Excess ABG Hemoglobin Oxyhemoglobin Sodium 152 H Potassium 3.1 L D Chloride 111.9 H Carbon Dioxide 21 L BUN 53 H Creatinine 1.9 H Glucose 141 H POC Glucose 128 H Lactic Acid Calcium Ionized Calcium Phosphorus Magnesium Total Bilirubin AST ALT Alkaline Phosphatase 316 H Ammonia Total Creatine Kinase CK-MB (CK-2) CK-MB (CK-2) Rel Index Total Protein Albumin 2.4 L Urine WBC (Auto) Vancomycin Trough Salicylates Acetaminophen Plasma/Serum Alcohol Crossmatch 12/13/19 12/13/19 12/14/19 18:17 23:19 05:36 WBC RBC Hgb Hct MCH RDW Plt Count Lymph % (Auto) [place] % (Auto) [place] # Baso # Seg Neutrophils % Seg Neuts % (Manual) Lymphocytes % (Manual) Monocytes % (Manual) Seg Neutrophils # Seg Neutrophils # Man Lymphocytes # (Manual) Monocytes # (Manual) Eosinophils # (Manual) Basophils # (Manual) PT INR APTT ABG pH ABG pO2 ABG HCO3 ABG O2 Saturation ABG Base Excess ABG Hemoglobin Oxyhemoglobin Sodium Potassium Chloride Carbon Dioxide BUN Creatinine Glucose POC Glucose 141 H 158 H 182 H Lactic Acid Calcium Ionized Calcium Phosphorus Magnesium Total Bilirubin AST ALT Alkaline Phosphatase Ammonia Total Creatine Kinase CK-MB (CK-2) CK-MB (CK-2) Rel Index Total Protein Albumin Urine WBC (Auto) Vancomycin Trough Salicylates Acetaminophen Plasma/Serum Alcohol Crossmatch 12/14/19 12/14/19 12/14/19 08:48 08:48 10:31 WBC 33.3 H RBC 2.70 L Hgb 7.9 L 8.0 L Hct 25.3 L 24.0 L MCH RDW 19.2 H Plt Count 476 H Lymph % (Auto) [place] % (Auto) [place] # Baso # Seg Neutrophils % Seg Neuts % (Manual) Lymphocytes % (Manual) Monocytes % (Manual) Seg Neutrophils # Seg Neutrophils # Man Lymphocytes # (Manual) Monocytes # (Manual) Eosinophils # (Manual) Basophils # (Manual) PT INR APTT ABG pH ABG pO2 ABG HCO3 ABG O2 Saturation ABG Base Excess ABG Hemoglobin Oxyhemoglobin Sodium 153 H Potassium 2.5 L* Chloride 114.9 H Carbon Dioxide 20 L BUN 38 H Creatinine 1.4 H Glucose 177 H POC Glucose Lactic Acid Calcium Ionized Calcium Phosphorus Magnesium Total Bilirubin AST ALT Alkaline Phosphatase Ammonia Total Creatine Kinase CK-MB (CK-2) CK-MB (CK-2) Rel Index Total Protein Albumin Urine WBC (Auto) Vancomycin Trough Salicylates Acetaminophen Plasma/Serum Alcohol Crossmatch 12/14/19 12/14/19 12/14/19 12:57 16:15 17:50 WBC RBC Hgb Hct MCH RDW Plt Count Lymph % (Auto) [place] % (Auto) [place] # Baso # Seg Neutrophils % Seg Neuts % (Manual) Lymphocytes % (Manual) Monocytes % (Manual) Seg Neutrophils # Seg Neutrophils # Man Lymphocytes # (Manual) Monocytes # (Manual) Eosinophils # (Manual) Basophils # (Manual) PT INR APTT ABG pH ABG pO2 73.6 L ABG HCO3 ABG O2 Saturation ABG Base Excess ABG Hemoglobin 7.6 L Oxyhemoglobin 94.0 L Sodium Potassium Chloride Carbon Dioxide BUN Creatinine Glucose POC Glucose 174 H 150 H Lactic Acid Calcium Ionized Calcium Phosphorus Magnesium Total Bilirubin AST ALT Alkaline Phosphatase Ammonia Total Creatine Kinase CK-MB (CK-2) CK-MB (CK-2) Rel Index Total Protein Albumin Urine WBC (Auto) Vancomycin Trough Salicylates Acetaminophen Plasma/Serum Alcohol Crossmatch 12/15/19 12/15/19 12/15/19 00:28 05:27 07:23 WBC 30.0 H RBC 3.11 L Hgb 8.6 L Hct 27.7 L MCH RDW 20.0 H Plt Count 473 H Lymph % (Auto) [place] % (Auto) [place] # Baso # Seg Neutrophils % Seg Neuts % (Manual) Lymphocytes % (Manual) Monocytes % (Manual) Seg Neutrophils # Seg Neutrophils # Man Lymphocytes # (Manual) Monocytes # (Manual) Eosinophils # (Manual) Basophils # (Manual) PT INR APTT ABG pH ABG pO2 ABG HCO3 ABG O2 Saturation ABG Base Excess ABG Hemoglobin Oxyhemoglobin Sodium Potassium Chloride Carbon Dioxide BUN Creatinine Glucose POC Glucose 167 H 148 H Lactic Acid Calcium Ionized Calcium Phosphorus Magnesium Total Bilirubin AST ALT Alkaline Phosphatase Ammonia Total Creatine Kinase CK-MB (CK-2) CK-MB (CK-2) Rel Index Total Protein Albumin Urine WBC (Auto) Vancomycin Trough Salicylates Acetaminophen Plasma/Serum Alcohol Crossmatch 12/15/19 12/15/19 12/15/19 07:23 12:21 17:41 WBC RBC Hgb Hct MCH RDW Plt Count Lymph % (Auto) [place] % (Auto) [place] # Baso # Seg Neutrophils % Seg Neuts % (Manual) Lymphocytes % (Manual) Monocytes % (Manual) Seg Neutrophils # Seg Neutrophils # Man Lymphocytes # (Manual) Monocytes # (Manual) Eosinophils # (Manual) Basophils # (Manual) PT INR APTT ABG pH ABG pO2 ABG HCO3 ABG O2 Saturation ABG Base Excess ABG Hemoglobin Oxyhemoglobin Sodium 147 H Potassium 3.5 L D Chloride 111.2 H Carbon Dioxide 19 L BUN 29 H Creatinine Glucose 126 H POC Glucose 154 H 144 H Lactic Acid Calcium Ionized Calcium Phosphorus Magnesium Total Bilirubin AST ALT Alkaline Phosphatase Ammonia Total Creatine Kinase CK-MB (CK-2) CK-MB (CK-2) Rel Index Total Protein Albumin Urine WBC (Auto) Vancomycin Trough Salicylates Acetaminophen Plasma/Serum Alcohol Crossmatch 12/16/19 12/16/19 12/16/19 00:22 05:30 05:44 WBC 30.8 H RBC 2.58 L Hgb 7.1 L Hct 22.7 L MCH RDW 19.6 H Plt Count 451 H Lymph % (Auto) [place] % (Auto) [place] # Baso # Seg Neutrophils % Seg Neuts % (Manual) Lymphocytes % (Manual) Monocytes % (Manual) Seg Neutrophils # Seg Neutrophils # Man Lymphocytes # (Manual) Monocytes # (Manual) Eosinophils # (Manual) Basophils # (Manual) PT INR APTT ABG pH ABG pO2 ABG HCO3 ABG O2 Saturation ABG Base Excess ABG Hemoglobin Oxyhemoglobin Sodium Potassium Chloride Carbon Dioxide BUN Creatinine Glucose POC Glucose 139 H 126 H Lactic Acid Calcium Ionized Calcium Phosphorus Magnesium Total Bilirubin AST ALT Alkaline Phosphatase Ammonia Total Creatine Kinase CK-MB (CK-2) CK-MB (CK-2) Rel Index Total Protein Albumin Urine WBC (Auto) Vancomycin Trough Salicylates Acetaminophen Plasma/Serum Alcohol Crossmatch 12/16/19 12/16/19 12/16/19 05:44 11:48 17:37 WBC RBC Hgb Hct MCH RDW Plt Count Lymph % (Auto) [place] % (Auto) [place] # Baso # Seg Neutrophils % Seg Neuts % (Manual) Lymphocytes % (Manual) Monocytes % (Manual) Seg Neutrophils # Seg Neutrophils # Man Lymphocytes # (Manual) Monocytes # (Manual) Eosinophils # (Manual) Basophils # (Manual) PT INR APTT ABG pH ABG pO2 ABG HCO3 ABG O2 Saturation ABG Base Excess ABG Hemoglobin Oxyhemoglobin Sodium Potassium 3.4 L Chloride 109.2 H Carbon Dioxide 19 L BUN 27 H Creatinine Glucose 124 H POC Glucose 125 H 148 H Lactic Acid Calcium Ionized Calcium Phosphorus Magnesium Total Bilirubin AST ALT Alkaline Phosphatase Ammonia Total Creatine Kinase CK-MB (CK-2) CK-MB (CK-2) Rel Index Total Protein Albumin Urine WBC (Auto) Vancomycin Trough Salicylates Acetaminophen Plasma/Serum Alcohol Crossmatch 12/16/19 12/17/19 12/17/19 23:43 05:28 12:47 WBC RBC Hgb Hct MCH RDW Plt Count Lymph % (Auto) [place] % (Auto) [place] # Baso # Seg Neutrophils % Seg Neuts % (Manual) Lymphocytes % (Manual) Monocytes % (Manual) Seg Neutrophils # Seg Neutrophils # Man Lymphocytes # (Manual) Monocytes # (Manual) Eosinophils # (Manual) Basophils # (Manual) PT INR APTT ABG pH ABG pO2 ABG HCO3 ABG O2 Saturation ABG Base Excess ABG Hemoglobin Oxyhemoglobin Sodium Potassium Chloride Carbon Dioxide BUN Creatinine Glucose POC Glucose 142 H 140 H 125 H Lactic Acid Calcium Ionized Calcium Phosphorus Magnesium Total Bilirubin AST ALT Alkaline Phosphatase Ammonia Total Creatine Kinase CK-MB (CK-2) CK-MB (CK-2) Rel Index Total Protein Albumin Urine WBC (Auto) Vancomycin Trough Salicylates Acetaminophen Plasma/Serum Alcohol Crossmatch 12/17/19 12/17/19 12/17/19 17:05 18:00 Unknown WBC RBC Hgb Hct MCH RDW Plt Count Lymph % (Auto) [place] % (Auto) [place] # Baso # Seg Neutrophils % Seg Neuts % (Manual) Lymphocytes % (Manual) Monocytes % (Manual) Seg Neutrophils # Seg Neutrophils # Man Lymphocytes # (Manual) Monocytes # (Manual) Eosinophils # (Manual) Basophils # (Manual) PT INR APTT ABG pH ABG pO2 68.1 L ABG HCO3 ABG O2 Saturation 93.7 L ABG Base Excess ABG Hemoglobin 5.0 L Oxyhemoglobin 91.7 L Sodium Potassium Chloride Carbon Dioxide BUN Creatinine Glucose POC Glucose 140 H Lactic Acid Calcium Ionized Calcium Phosphorus Magnesium Total Bilirubin AST ALT Alkaline Phosphatase Ammonia Total Creatine Kinase CK-MB (CK-2) CK-MB (CK-2) Rel Index Total Protein Albumin Urine WBC (Auto) Vancomycin Trough Salicylates Acetaminophen Plasma/Serum Alcohol Crossmatch 12/18/19 12/18/19 12/18/19 00:16 04:53 04:53 WBC 28.6 H RBC 2.27 L Hgb 6.3 L Hct 19.5 L* MCH RDW 20.0 H Plt Count 497 H Lymph % (Auto) [place] % (Auto) [place] # Baso # Seg Neutrophils % Seg Neuts % (Manual) Lymphocytes % (Manual) Monocytes % (Manual) Seg Neutrophils # Seg Neutrophils # Man Lymphocytes # (Manual) Monocytes # (Manual) Eosinophils # (Manual) Basophils # (Manual) PT INR APTT ABG pH ABG pO2 ABG HCO3 ABG O2 Saturation ABG Base Excess ABG Hemoglobin Oxyhemoglobin Sodium Potassium Chloride 107.9 H Carbon Dioxide 20 L BUN 27 H Creatinine 0.6 L Glucose 116 H POC Glucose 123 H Lactic Acid Calcium Ionized Calcium Phosphorus Magnesium Total Bilirubin AST ALT Alkaline Phosphatase Ammonia Total Creatine Kinase CK-MB (CK-2) CK-MB (CK-2) Rel Index Total Protein Albumin Urine WBC (Auto) Vancomycin Trough Salicylates Acetaminophen Plasma/Serum Alcohol Crossmatch 12/18/19 12/18/19 12/18/19 06:38 11:22 12:08 WBC RBC Hgb Hct MCH RDW Plt Count Lymph % (Auto) [place] % (Auto) [place] # Baso # Seg Neutrophils % Seg Neuts % (Manual) Lymphocytes % (Manual) Monocytes % (Manual) Seg Neutrophils # Seg Neutrophils # Man Lymphocytes # (Manual) Monocytes # (Manual) Eosinophils # (Manual) Basophils # (Manual) PT INR APTT ABG pH ABG pO2 ABG HCO3 ABG O2 Saturation ABG Base Excess ABG Hemoglobin Oxyhemoglobin Sodium Potassium Chloride Carbon Dioxide BUN Creatinine Glucose POC Glucose 120 H 127 H Lactic Acid Calcium Ionized Calcium Phosphorus Magnesium Total Bilirubin AST ALT Alkaline Phosphatase Ammonia Total Creatine Kinase CK-MB (CK-2) CK-MB (CK-2) Rel Index Total Protein Albumin Urine WBC (Auto) Vancomycin Trough Salicylates Acetaminophen Plasma/Serum Alcohol Crossmatch See Detail 12/18/19 12/18/19 12/18/19 14:05 17:49 23:53 WBC RBC Hgb Hct MCH RDW Plt Count Lymph % (Auto) [place] % (Auto) [place] # Baso # Seg Neutrophils % Seg Neuts % (Manual) Lymphocytes % (Manual) Monocytes % (Manual) Seg Neutrophils # Seg Neutrophils # Man Lymphocytes # (Manual) Monocytes # (Manual) Eosinophils # (Manual) Basophils # (Manual) PT INR APTT ABG pH 7.267 L ABG pO2 69.8 L ABG HCO3 ABG O2 Saturation 88.4 L ABG Base Excess ABG Hemoglobin 7.1 L Oxyhemoglobin 86.4 L Sodium Potassium Chloride Carbon Dioxide BUN Creatinine Glucose POC Glucose 157 H 128 H Lactic Acid Calcium Ionized Calcium Phosphorus Magnesium Total Bilirubin AST ALT Alkaline Phosphatase Ammonia Total Creatine Kinase CK-MB (CK-2) CK-MB (CK-2) Rel Index Total Protein Albumin Urine WBC (Auto) Vancomycin Trough Salicylates Acetaminophen Plasma/Serum Alcohol Crossmatch 12/19/19 12/19/19 12/19/19 03:37 03:37 05:25 WBC 31.3 H RBC 2.60 L Hgb 7.6 L Hct 23.0 L MCH RDW 19.4 H Plt Count 530 H Lymph % (Auto) [place] % (Auto) [place] # Baso # Seg Neutrophils % Seg Neuts % (Manual) Lymphocytes % (Manual) Monocytes % (Manual) Seg Neutrophils # Seg Neutrophils # Man Lymphocytes # (Manual) Monocytes # (Manual) Eosinophils # (Manual) Basophils # (Manual) PT INR APTT ABG pH ABG pO2 ABG HCO3 ABG O2 Saturation ABG Base Excess ABG Hemoglobin Oxyhemoglobin Sodium Potassium Chloride Carbon Dioxide 18 L BUN 36 H Creatinine Glucose 111 H POC Glucose 123 H Lactic Acid Calcium Ionized Calcium Phosphorus Magnesium Total Bilirubin AST ALT Alkaline Phosphatase Ammonia Total Creatine Kinase CK-MB (CK-2) CK-MB (CK-2) Rel Index Total Protein Albumin Urine WBC (Auto) Vancomycin Trough Salicylates Acetaminophen Plasma/Serum Alcohol Crossmatch 12/19/19 12/19/19 12/20/19 12:59 18:33 00:00 WBC RBC Hgb Hct MCH RDW Plt Count Lymph % (Auto) [place] % (Auto) [place] # Baso # Seg Neutrophils % Seg Neuts % (Manual) Lymphocytes % (Manual) Monocytes % (Manual) Seg Neutrophils # Seg Neutrophils # Man Lymphocytes # (Manual) Monocytes # (Manual) Eosinophils # (Manual) Basophils # (Manual) PT INR APTT ABG pH ABG pO2 ABG HCO3 ABG O2 Saturation ABG Base Excess ABG Hemoglobin Oxyhemoglobin Sodium Potassium Chloride Carbon Dioxide BUN Creatinine Glucose POC Glucose 130 H 118 H 135 H Lactic Acid Calcium Ionized Calcium Phosphorus Magnesium Total Bilirubin AST ALT Alkaline Phosphatase Ammonia Total Creatine Kinase CK-MB (CK-2) CK-MB (CK-2) Rel Index Total Protein Albumin Urine WBC (Auto) Vancomycin Trough Salicylates Acetaminophen Plasma/Serum Alcohol Crossmatch 12/20/19 12/20/19 12/20/19 05:46 12:31 18:07 WBC RBC Hgb Hct MCH RDW Plt Count Lymph % (Auto) [place] % (Auto) [place] # Baso # Seg Neutrophils % Seg Neuts % (Manual) Lymphocytes % (Manual) Monocytes % (Manual) Seg Neutrophils # Seg Neutrophils # Man Lymphocytes # (Manual) Monocytes # (Manual) Eosinophils # (Manual) Basophils # (Manual) PT INR APTT ABG pH ABG pO2 ABG HCO3 ABG O2 Saturation ABG Base Excess ABG Hemoglobin Oxyhemoglobin Sodium Potassium Chloride Carbon Dioxide BUN Creatinine Glucose POC Glucose 131 H 128 H 134 H Lactic Acid Calcium Ionized Calcium Phosphorus Magnesium Total Bilirubin AST ALT Alkaline Phosphatase Ammonia Total Creatine Kinase CK-MB (CK-2) CK-MB (CK-2) Rel Index Total Protein Albumin Urine WBC (Auto) Vancomycin Trough Salicylates Acetaminophen Plasma/Serum Alcohol Crossmatch 12/21/19 12/21/19 12/21/19 03:28 03:28 07:21 WBC 29.4 H RBC 2.30 L Hgb 6.8 L Hct 20.2 L MCH RDW 20.2 H Plt Count 746 H Lymph % (Auto) [place] % (Auto) [place] # Baso # Seg Neutrophils % Seg Neuts % (Manual) 85.0 H Lymphocytes % (Manual) 8.0 L Monocytes % (Manual) Seg Neutrophils # Seg Neutrophils # Man 25.0 H Lymphocytes # (Manual) Monocytes # (Manual) 1.5 H Eosinophils # (Manual) 0.6 H Basophils # (Manual) PT INR APTT ABG pH ABG pO2 ABG HCO3 ABG O2 Saturation ABG Base Excess ABG Hemoglobin Oxyhemoglobin Sodium Potassium Chloride Carbon Dioxide 17 L BUN 57 H Creatinine 1.4 H D Glucose POC Glucose 124 H Lactic Acid Calcium Ionized Calcium Phosphorus Magnesium Total Bilirubin AST ALT Alkaline Phosphatase Ammonia Total Creatine Kinase CK-MB (CK-2) CK-MB (CK-2) Rel Index Total Protein Albumin Urine WBC (Auto) Vancomycin Trough Salicylates Acetaminophen Plasma/Serum Alcohol Crossmatch 12/21/19 12/21/19 12/21/19 08:56 12:06 14:53 WBC RBC Hgb 7.2 L Hct 22.9 L MCH RDW Plt Count Lymph % (Auto) [place] % (Auto) [place] # Baso # Seg Neutrophils % Seg Neuts % (Manual) Lymphocytes % (Manual) Monocytes % (Manual) Seg Neutrophils # Seg Neutrophils # Man Lymphocytes # (Manual) Monocytes # (Manual) Eosinophils # (Manual) Basophils # (Manual) PT INR APTT ABG pH ABG pO2 ABG HCO3 ABG O2 Saturation ABG Base Excess ABG Hemoglobin Oxyhemoglobin Sodium Potassium Chloride Carbon Dioxide BUN Creatinine Glucose POC Glucose 116 H Lactic Acid Calcium Ionized Calcium Phosphorus Magnesium Total Bilirubin AST ALT Alkaline Phosphatase Ammonia Total Creatine Kinase CK-MB (CK-2) CK-MB (CK-2) Rel Index Total Protein Albumin Urine WBC (Auto) Vancomycin Trough 33.8 H Salicylates Acetaminophen Plasma/Serum Alcohol Crossmatch 12/21/19 12/21/19 12/21/19 14:54 17:27 23:49 WBC RBC Hgb Hct MCH RDW Plt Count Lymph % (Auto) [place] % (Auto) [place] # Baso # Seg Neutrophils % Seg Neuts % (Manual) Lymphocytes % (Manual) Monocytes % (Manual) Seg Neutrophils # Seg Neutrophils # Man Lymphocytes # (Manual) Monocytes # (Manual) Eosinophils # (Manual) Basophils # (Manual) PT INR APTT ABG pH ABG pO2 ABG HCO3 ABG O2 Saturation ABG Base Excess ABG Hemoglobin Oxyhemoglobin Sodium Potassium Chloride Carbon Dioxide BUN Creatinine Glucose POC Glucose 145 H 127 H Lactic Acid Calcium Ionized Calcium Phosphorus Magnesium Total Bilirubin AST ALT Alkaline Phosphatase Ammonia Total Creatine Kinase CK-MB (CK-2) CK-MB (CK-2) Rel Index Total Protein Albumin Urine WBC (Auto) Vancomycin Trough Salicylates Acetaminophen Plasma/Serum Alcohol Crossmatch See Detail 12/22/19 12/22/19 12/22/19 04:43 05:56 08:40 WBC RBC Hgb Hct MCH RDW Plt Count Lymph % (Auto) [place] % (Auto) [place] # Baso # Seg Neutrophils % Seg Neuts % (Manual) Lymphocytes % (Manual) Monocytes % (Manual) Seg Neutrophils # Seg Neutrophils # Man Lymphocytes # (Manual) Monocytes # (Manual) Eosinophils # (Manual) Basophils # (Manual) PT INR APTT ABG pH ABG pO2 75.6 L ABG HCO3 ABG O2 Saturation ABG Base Excess -2.6 L ABG Hemoglobin 6.8 L Oxyhemoglobin 94.6 L Sodium Potassium Chloride Carbon Dioxide 17 L BUN 60 H Creatinine 1.4 H Glucose 126 H POC Glucose 153 H Lactic Acid Calcium Ionized Calcium Phosphorus Magnesium Total Bilirubin AST ALT Alkaline Phosphatase Ammonia Total Creatine Kinase CK-MB (CK-2) CK-MB (CK-2) Rel Index Total Protein Albumin Urine WBC (Auto) Vancomycin Trough Salicylates Acetaminophen Plasma/Serum Alcohol Crossmatch 12/22/19 12/22/19 12/23/19 12:07 17:49 04:30 WBC 22.4 H RBC 2.68 L Hgb 7.6 L Hct 22.9 L MCH RDW 19.9 H Plt Count 998 H Lymph % (Auto) [place] % (Auto) [place] # Baso # Seg Neutrophils % Seg Neuts % (Manual) 88.0 H Lymphocytes % (Manual) 2.0 L Monocytes % (Manual) 9.0 H Seg Neutrophils # Seg Neutrophils # Man 19.7 H Lymphocytes # (Manual) 0.4 L Monocytes # (Manual) 2.0 H Eosinophils # (Manual) Basophils # (Manual) PT INR APTT ABG pH ABG pO2 ABG HCO3 ABG O2 Saturation ABG Base Excess ABG Hemoglobin Oxyhemoglobin Sodium Potassium Chloride Carbon Dioxide BUN Creatinine Glucose POC Glucose 140 H 116 H Lactic Acid Calcium Ionized Calcium Phosphorus Magnesium Total Bilirubin AST ALT Alkaline Phosphatase Ammonia Total Creatine Kinase CK-MB (CK-2) CK-MB (CK-2) Rel Index Total Protein Albumin Urine WBC (Auto) Vancomycin Trough Salicylates Acetaminophen Plasma/Serum Alcohol Crossmatch 12/23/19 12/23/19 12/23/19 04:30 12:00 18:06 WBC RBC Hgb Hct MCH RDW Plt Count Lymph % (Auto) [place] % (Auto) [place] # Baso # Seg Neutrophils % Seg Neuts % (Manual) Lymphocytes % (Manual) Monocytes % (Manual) Seg Neutrophils # Seg Neutrophils # Man Lymphocytes # (Manual) Monocytes # (Manual) Eosinophils # (Manual) Basophils # (Manual) PT INR APTT ABG pH ABG pO2 ABG HCO3 ABG O2 Saturation ABG Base Excess ABG Hemoglobin Oxyhemoglobin Sodium Potassium 5.2 H Chloride Carbon Dioxide 21 L BUN 69 H Creatinine 1.5 H Glucose 117 H POC Glucose 128 H 138 H Lactic Acid Calcium Ionized Calcium Phosphorus Magnesium Total Bilirubin AST ALT Alkaline Phosphatase Ammonia Total Creatine Kinase CK-MB (CK-2) CK-MB (CK-2) Rel Index Total Protein Albumin Urine WBC (Auto) Vancomycin Trough Salicylates Acetaminophen Plasma/Serum Alcohol Crossmatch 12/23/19 12/24/19 12/24/19 23:46 04:31 05:08 WBC RBC Hgb Hct MCH RDW Plt Count Lymph % (Auto) [place] % (Auto) [place] # Baso # Seg Neutrophils % Seg Neuts % (Manual) Lymphocytes % (Manual) Monocytes % (Manual) Seg Neutrophils # Seg Neutrophils # Man Lymphocytes # (Manual) Monocytes # (Manual) Eosinophils # (Manual) Basophils # (Manual) PT INR APTT ABG pH ABG pO2 ABG HCO3 ABG O2 Saturation ABG Base Excess ABG Hemoglobin Oxyhemoglobin Sodium Potassium 5.3 H Chloride 107.6 H Carbon Dioxide 20 L BUN 72 H Creatinine 1.6 H Glucose 120 H POC Glucose 120 H 140 H Lactic Acid Calcium Ionized Calcium Phosphorus Magnesium Total Bilirubin AST ALT Alkaline Phosphatase Ammonia Total Creatine Kinase CK-MB (CK-2) CK-MB (CK-2) Rel Index Total Protein Albumin Urine WBC (Auto) Vancomycin Trough Salicylates Acetaminophen Plasma/Serum Alcohol Crossmatch 12/24/19 12/24/19 12/25/19 11:58 17:49 03:47 WBC 36.2 H RBC 2.92 L Hgb 8.4 L Hct 26.1 L MCH RDW 20.2 H Plt Count 942 H Lymph % (Auto) [place] % (Auto) [place] # Baso # Seg Neutrophils % Seg Neuts % (Manual) 97.5 H Lymphocytes % (Manual) 1.0 L Monocytes % (Manual) Seg Neutrophils # Seg Neutrophils # Man 35.3 H Lymphocytes # (Manual) 0.4 L Monocytes # (Manual) Eosinophils # (Manual) Basophils # (Manual) PT INR APTT ABG pH ABG pO2 ABG HCO3 ABG O2 Saturation ABG Base Excess ABG Hemoglobin Oxyhemoglobin Sodium Potassium Chloride Carbon Dioxide BUN Creatinine Glucose POC Glucose 146 H 131 H Lactic Acid Calcium Ionized Calcium Phosphorus Magnesium Total Bilirubin AST ALT Alkaline Phosphatase Ammonia Total Creatine Kinase CK-MB (CK-2) CK-MB (CK-2) Rel Index Total Protein Albumin Urine WBC (Auto) Vancomycin Trough Salicylates Acetaminophen Plasma/Serum Alcohol Crossmatch 12/25/19 12/25/19 12/25/19 03:47 05:30 12:23 WBC RBC Hgb Hct MCH RDW Plt Count Lymph % (Auto) [place] % (Auto) [place] # Baso # Seg Neutrophils % Seg Neuts % (Manual) Lymphocytes % (Manual) Monocytes % (Manual) Seg Neutrophils # Seg Neutrophils # Man Lymphocytes # (Manual) Monocytes # (Manual) Eosinophils # (Manual) Basophils # (Manual) PT INR APTT ABG pH ABG pO2 ABG HCO3 ABG O2 Saturation ABG Base Excess ABG Hemoglobin Oxyhemoglobin Sodium Potassium Chloride Carbon Dioxide 15 L BUN 70 H Creatinine 1.7 H Glucose 153 H POC Glucose 169 H 135 H Lactic Acid Calcium Ionized Calcium Phosphorus Magnesium Total Bilirubin AST ALT Alkaline Phosphatase Ammonia Total Creatine Kinase CK-MB (CK-2) CK-MB (CK-2) Rel Index Total Protein Albumin Urine WBC (Auto) Vancomycin Trough Salicylates Acetaminophen Plasma/Serum Alcohol Crossmatch 12/25/19 12/25/19 12/26/19 17:37 23:29 09:47 WBC 22.1 H RBC 2.83 L Hgb 7.9 L Hct 25.5 L MCH RDW 20.0 H Plt Count 894 H Lymph % (Auto) [place] % (Auto) [place] # Baso # Seg Neutrophils % Seg Neuts % (Manual) Lymphocytes % (Manual) Monocytes % (Manual) Seg Neutrophils # Seg Neutrophils # Man Lymphocytes # (Manual) Monocytes # (Manual) Eosinophils # (Manual) Basophils # (Manual) PT INR APTT ABG pH ABG pO2 ABG HCO3 ABG O2 Saturation ABG Base Excess ABG Hemoglobin Oxyhemoglobin Sodium Potassium Chloride Carbon Dioxide BUN Creatinine Glucose POC Glucose 120 H 140 H Lactic Acid Calcium Ionized Calcium Phosphorus Magnesium Total Bilirubin AST ALT Alkaline Phosphatase Ammonia Total Creatine Kinase CK-MB (CK-2) CK-MB (CK-2) Rel Index Total Protein Albumin Urine WBC (Auto) Vancomycin Trough Salicylates Acetaminophen Plasma/Serum Alcohol Crossmatch 12/26/19 12/26/19 12/26/19 09:47 11:46 17:52 WBC RBC Hgb Hct MCH RDW Plt Count Lymph % (Auto) [place] % (Auto) [place] # Baso # Seg Neutrophils % Seg Neuts % (Manual) Lymphocytes % (Manual) Monocytes % (Manual) Seg Neutrophils # Seg Neutrophils # Man Lymphocytes # (Manual) Monocytes # (Manual) Eosinophils # (Manual) Basophils # (Manual) PT INR APTT ABG pH ABG pO2 ABG HCO3 ABG O2 Saturation ABG Base Excess ABG Hemoglobin Oxyhemoglobin Sodium Potassium Chloride Carbon Dioxide 18 L BUN 65 H Creatinine 1.4 H Glucose 132 H POC Glucose 110 H 145 H Lactic Acid Calcium Ionized Calcium Phosphorus Magnesium Total Bilirubin AST ALT Alkaline Phosphatase Ammonia Total Creatine Kinase CK-MB (CK-2) CK-MB (CK-2) Rel Index Total Protein Albumin Urine WBC (Auto) Vancomycin Trough Salicylates Acetaminophen Plasma/Serum Alcohol Crossmatch 12/27/19 12/27/19 12/27/19 00:01 03:42 03:42 WBC 18.0 H RBC 2.86 L Hgb 8.0 L Hct 25.2 L MCH RDW 19.2 H Plt Count 873 H Lymph % (Auto) 8.4 L [place] % (Auto) 7.5 H [place] # 1.4 H Baso # 0.2 H Seg Neutrophils % 82.2 H Seg Neuts % (Manual) Lymphocytes % (Manual) Monocytes % (Manual) Seg Neutrophils # 14.8 H Seg Neutrophils # Man Lymphocytes # (Manual) Monocytes # (Manual) Eosinophils # (Manual) Basophils # (Manual) PT INR APTT ABG pH ABG pO2 ABG HCO3 ABG O2 Saturation ABG Base Excess ABG Hemoglobin Oxyhemoglobin Sodium Potassium Chloride Carbon Dioxide BUN 73 H Creatinine 1.4 H Glucose 119 H POC Glucose 124 H Lactic Acid Calcium Ionized Calcium Phosphorus Magnesium Total Bilirubin AST ALT Alkaline Phosphatase Ammonia Total Creatine Kinase CK-MB (CK-2) CK-MB (CK-2) Rel Index Total Protein Albumin Urine WBC (Auto) Vancomycin Trough Salicylates Acetaminophen Plasma/Serum Alcohol Crossmatch 12/27/19 12/27/19 12/27/19 05:45 11:45 17:29 WBC RBC Hgb Hct MCH RDW Plt Count Lymph % (Auto) [place] % (Auto) [place] # Baso # Seg Neutrophils % Seg Neuts % (Manual) Lymphocytes % (Manual) Monocytes % (Manual) Seg Neutrophils # Seg Neutrophils # Man Lymphocytes # (Manual) Monocytes # (Manual) Eosinophils # (Manual) Basophils # (Manual) PT INR APTT ABG pH ABG pO2 ABG HCO3 ABG O2 Saturation ABG Base Excess ABG Hemoglobin Oxyhemoglobin Sodium Potassium Chloride Carbon Dioxide BUN Creatinine Glucose POC Glucose 131 H 123 H 134 H Lactic Acid Calcium Ionized Calcium Phosphorus Magnesium Total Bilirubin AST ALT Alkaline Phosphatase Ammonia Total Creatine Kinase CK-MB (CK-2) CK-MB (CK-2) Rel Index Total Protein Albumin Urine WBC (Auto) Vancomycin Trough Salicylates Acetaminophen Plasma/Serum Alcohol Crossmatch 12/28/19 12/28/19 12/28/19 00:12 05:14 11:53 WBC RBC Hgb Hct MCH RDW Plt Count Lymph % (Auto) [place] % (Auto) [place] # Baso # Seg Neutrophils % Seg Neuts % (Manual) Lymphocytes % (Manual) Monocytes % (Manual) Seg Neutrophils # Seg Neutrophils # Man Lymphocytes # (Manual) Monocytes # (Manual) Eosinophils # (Manual) Basophils # (Manual) PT INR APTT ABG pH ABG pO2 ABG HCO3 ABG O2 Saturation ABG Base Excess ABG Hemoglobin Oxyhemoglobin Sodium Potassium Chloride Carbon Dioxide BUN Creatinine Glucose POC Glucose 138 H 130 H 146 H Lactic Acid Calcium Ionized Calcium Phosphorus Magnesium Total Bilirubin AST ALT Alkaline Phosphatase Ammonia Total Creatine Kinase CK-MB (CK-2) CK-MB (CK-2) Rel Index Total Protein Albumin Urine WBC (Auto) Vancomycin Trough Salicylates Acetaminophen Plasma/Serum Alcohol Crossmatch 12/28/19 12/29/19 12/29/19 17:39 00:01 18:11 WBC RBC Hgb Hct MCH RDW Plt Count Lymph % (Auto) [place] % (Auto) [place] # Baso # Seg Neutrophils % Seg Neuts % (Manual) Lymphocytes % (Manual) Monocytes % (Manual) Seg Neutrophils # Seg Neutrophils # Man Lymphocytes # (Manual) Monocytes # (Manual) Eosinophils # (Manual) Basophils # (Manual) PT INR APTT ABG pH ABG pO2 ABG HCO3 ABG O2 Saturation ABG Base Excess ABG Hemoglobin Oxyhemoglobin Sodium Potassium Chloride Carbon Dioxide BUN Creatinine Glucose POC Glucose 117 H 139 H 130 H Lactic Acid Calcium Ionized Calcium Phosphorus Magnesium Total Bilirubin AST ALT Alkaline Phosphatase Ammonia Total Creatine Kinase CK-MB (CK-2) CK-MB (CK-2) Rel Index Total Protein Albumin Urine WBC (Auto) Vancomycin Trough Salicylates Acetaminophen Plasma/Serum Alcohol Crossmatch 12/29/19 12/30/19 12/30/19 23:09 00:02 01:06 WBC 16.7 H RBC 2.91 L Hgb 8.2 L Hct 25.4 L MCH RDW 18.7 H Plt Count 708 H Lymph % (Auto) 9.4 L [place] % (Auto) [place] # 0.9 H Baso # Seg Neutrophils % 83.5 H Seg Neuts % (Manual) Lymphocytes % (Manual) Monocytes % (Manual) Seg Neutrophils # 14.0 H Seg Neutrophils # Man Lymphocytes # (Manual) Monocytes # (Manual) Eosinophils # (Manual) Basophils # (Manual) PT INR APTT ABG pH ABG pO2 ABG HCO3 ABG O2 Saturation ABG Base Excess ABG Hemoglobin Oxyhemoglobin Sodium Potassium Chloride Carbon Dioxide BUN Creatinine Glucose POC Glucose 120 H 114 H Lactic Acid Calcium Ionized Calcium Phosphorus Magnesium Total Bilirubin AST ALT Alkaline Phosphatase Ammonia Total Creatine Kinase CK-MB (CK-2) CK-MB (CK-2) Rel Index Total Protein Albumin Urine WBC (Auto) Vancomycin Trough Salicylates Acetaminophen Plasma/Serum Alcohol Crossmatch 12/30/19 12/30/19 12/30/19 01:06 04:23 05:18 WBC RBC Hgb Hct MCH RDW Plt Count Lymph % (Auto) [place] % (Auto) [place] # Baso # Seg Neutrophils % Seg Neuts % (Manual) Lymphocytes % (Manual) Monocytes % (Manual) Seg Neutrophils # Seg Neutrophils # Man Lymphocytes # (Manual) Monocytes # (Manual) Eosinophils # (Manual) Basophils # (Manual) PT INR APTT ABG pH ABG pO2 ABG HCO3 ABG O2 Saturation ABG Base Excess ABG Hemoglobin 8.3 L Oxyhemoglobin Sodium Potassium Chloride Carbon Dioxide BUN 70 H Creatinine Glucose 122 H POC Glucose 130 H Lactic Acid Calcium Ionized Calcium Phosphorus Magnesium Total Bilirubin AST ALT Alkaline Phosphatase Ammonia Total Creatine Kinase CK-MB (CK-2) CK-MB (CK-2) Rel Index Total Protein Albumin Urine WBC (Auto) Vancomycin Trough Salicylates Acetaminophen Plasma/Serum Alcohol Crossmatch 12/30/19 12/30/19 12/30/19 05:40 12:17 17:43 WBC RBC Hgb Hct MCH RDW Plt Count Lymph % (Auto) [place] % (Auto) [place] # Baso # Seg Neutrophils % Seg Neuts % (Manual) Lymphocytes % (Manual) Monocytes % (Manual) Seg Neutrophils # Seg Neutrophils # Man Lymphocytes # (Manual) Monocytes # (Manual) Eosinophils # (Manual) Basophils # (Manual) PT INR APTT ABG pH ABG pO2 ABG HCO3 ABG O2 Saturation ABG Base Excess ABG Hemoglobin Oxyhemoglobin Sodium Potassium Chloride Carbon Dioxide BUN Creatinine Glucose POC Glucose 135 H 132 H 118 H Lactic Acid Calcium Ionized Calcium Phosphorus Magnesium Total Bilirubin AST ALT Alkaline Phosphatase Ammonia Total Creatine Kinase CK-MB (CK-2) CK-MB (CK-2) Rel Index Total Protein Albumin Urine WBC (Auto) Vancomycin Trough Salicylates Acetaminophen Plasma/Serum Alcohol Crossmatch 12/30/19 12/31/19 12/31/19 23:29 05:19 17:50 WBC RBC Hgb Hct MCH RDW Plt Count Lymph % (Auto) [place] % (Auto) [place] # Baso # Seg Neutrophils % Seg Neuts % (Manual) Lymphocytes % (Manual) Monocytes % (Manual) Seg Neutrophils # Seg Neutrophils # Man Lymphocytes # (Manual) Monocytes # (Manual) Eosinophils # (Manual) Basophils # (Manual) PT INR APTT ABG pH ABG pO2 ABG HCO3 ABG O2 Saturation ABG Base Excess ABG Hemoglobin Oxyhemoglobin Sodium Potassium Chloride Carbon Dioxide BUN Creatinine Glucose POC Glucose 114 H 109 H 116 H Lactic Acid Calcium Ionized Calcium Phosphorus Magnesium Total Bilirubin AST ALT Alkaline Phosphatase Ammonia Total Creatine Kinase CK-MB (CK-2) CK-MB (CK-2) Rel Index Total Protein Albumin Urine WBC (Auto) Vancomycin Trough Salicylates Acetaminophen Plasma/Serum Alcohol Crossmatch 01/01/20 01/01/20 01/01/20 00:10 05:19 12:02 WBC RBC Hgb Hct MCH RDW Plt Count Lymph % (Auto) [place] % (Auto) [place] # Baso # Seg Neutrophils % Seg Neuts % (Manual) Lymphocytes % (Manual) Monocytes % (Manual) Seg Neutrophils # Seg Neutrophils # Man Lymphocytes # (Manual) Monocytes # (Manual) Eosinophils # (Manual) Basophils # (Manual) PT INR APTT ABG pH ABG pO2 ABG HCO3 ABG O2 Saturation ABG Base Excess ABG Hemoglobin Oxyhemoglobin Sodium Potassium Chloride Carbon Dioxide BUN Creatinine Glucose POC Glucose 131 H 122 H 136 H Lactic Acid Calcium Ionized Calcium Phosphorus Magnesium Total Bilirubin AST ALT Alkaline Phosphatase Ammonia Total Creatine Kinase CK-MB (CK-2) CK-MB (CK-2) Rel Index Total Protein Albumin Urine WBC (Auto) Vancomycin Trough Salicylates Acetaminophen Plasma/Serum Alcohol Crossmatch 01/02/20 01/02/20 01/02/20 00:24 05:36 11:41 WBC RBC Hgb Hct MCH RDW Plt Count Lymph % (Auto) [place] % (Auto) [place] # Baso # Seg Neutrophils % Seg Neuts % (Manual) Lymphocytes % (Manual) Monocytes % (Manual) Seg Neutrophils # Seg Neutrophils # Man Lymphocytes # (Manual) Monocytes # (Manual) Eosinophils # (Manual) Basophils # (Manual) PT INR APTT ABG pH ABG pO2 ABG HCO3 ABG O2 Saturation ABG Base Excess ABG Hemoglobin Oxyhemoglobin Sodium Potassium Chloride Carbon Dioxide BUN Creatinine Glucose POC Glucose 119 H 109 H 125 H Lactic Acid Calcium Ionized Calcium Phosphorus Magnesium Total Bilirubin AST ALT Alkaline Phosphatase Ammonia Total Creatine Kinase CK-MB (CK-2) CK-MB (CK-2) Rel Index Total Protein Albumin Urine WBC (Auto) Vancomycin Trough Salicylates Acetaminophen Plasma/Serum Alcohol Crossmatch 01/02/20 01/03/20 01/03/20 17:49 05:29 12:13 WBC RBC Hgb Hct MCH RDW Plt Count Lymph % (Auto) [place] % (Auto) [place] # Baso # Seg Neutrophils % Seg Neuts % (Manual) Lymphocytes % (Manual) Monocytes % (Manual) Seg Neutrophils # Seg Neutrophils # Man Lymphocytes # (Manual) Monocytes # (Manual) Eosinophils # (Manual) Basophils # (Manual) PT INR APTT ABG pH ABG pO2 ABG HCO3 ABG O2 Saturation ABG Base Excess ABG Hemoglobin Oxyhemoglobin Sodium Potassium Chloride Carbon Dioxide BUN Creatinine Glucose POC Glucose 130 H 132 H 113 H Lactic Acid Calcium Ionized Calcium Phosphorus Magnesium Total Bilirubin AST ALT Alkaline Phosphatase Ammonia Total Creatine Kinase CK-MB (CK-2) CK-MB (CK-2) Rel Index Total Protein Albumin Urine WBC (Auto) Vancomycin Trough Salicylates Acetaminophen Plasma/Serum Alcohol Crossmatch 01/03/20 01/04/20 01/04/20 17:32 00:19 05:26 WBC RBC Hgb Hct MCH RDW Plt Count Lymph % (Auto) [place] % (Auto) [place] # Baso # Seg Neutrophils % Seg Neuts % (Manual) Lymphocytes % (Manual) Monocytes % (Manual) Seg Neutrophils # Seg Neutrophils # Man Lymphocytes # (Manual) Monocytes # (Manual) Eosinophils # (Manual) Basophils # (Manual) PT INR APTT ABG pH ABG pO2 ABG HCO3 ABG O2 Saturation ABG Base Excess ABG Hemoglobin Oxyhemoglobin Sodium Potassium Chloride Carbon Dioxide BUN Creatinine Glucose POC Glucose 127 H 141 H 129 H Lactic Acid Calcium Ionized Calcium Phosphorus Magnesium Total Bilirubin AST ALT Alkaline Phosphatase Ammonia Total Creatine Kinase CK-MB (CK-2) CK-MB (CK-2) Rel Index Total Protein Albumin Urine WBC (Auto) Vancomycin Trough Salicylates Acetaminophen Plasma/Serum Alcohol Crossmatch 01/04/20 01/04/20 01/05/20 11:39 17:29 05:22 WBC RBC Hgb Hct MCH RDW Plt Count Lymph % (Auto) [place] % (Auto) [place] # Baso # Seg Neutrophils % Seg Neuts % (Manual) Lymphocytes % (Manual) Monocytes % (Manual) Seg Neutrophils # Seg Neutrophils # Man Lymphocytes # (Manual) Monocytes # (Manual) Eosinophils # (Manual) Basophils # (Manual) PT INR APTT ABG pH ABG pO2 ABG HCO3 ABG O2 Saturation ABG Base Excess ABG Hemoglobin Oxyhemoglobin Sodium Potassium Chloride Carbon Dioxide BUN Creatinine Glucose POC Glucose 167 H 132 H 121 H Lactic Acid Calcium Ionized Calcium Phosphorus Magnesium Total Bilirubin AST ALT Alkaline Phosphatase Ammonia Total Creatine Kinase CK-MB (CK-2) CK-MB (CK-2) Rel Index Total Protein Albumin Urine WBC (Auto) Vancomycin Trough Salicylates Acetaminophen Plasma/Serum Alcohol Crossmatch 01/05/20 01/05/20 01/05/20 12:25 17:40 18:06 WBC RBC Hgb Hct MCH RDW Plt Count Lymph % (Auto) [place] % (Auto) [place] # Baso # Seg Neutrophils % Seg Neuts % (Manual) Lymphocytes % (Manual) Monocytes % (Manual) Seg Neutrophils # Seg Neutrophils # Man Lymphocytes # (Manual) Monocytes # (Manual) Eosinophils # (Manual) Basophils # (Manual) PT INR APTT ABG pH 7.472 H ABG pO2 99.2 H ABG HCO3 ABG O2 Saturation ABG Base Excess ABG Hemoglobin 7.8 L Oxyhemoglobin Sodium Potassium Chloride Carbon Dioxide BUN Creatinine Glucose POC Glucose 106 H 110 H Lactic Acid Calcium Ionized Calcium Phosphorus Magnesium Total Bilirubin AST ALT Alkaline Phosphatase Ammonia Total Creatine Kinase CK-MB (CK-2) CK-MB (CK-2) Rel Index Total Protein Albumin Urine WBC (Auto) Vancomycin Trough Salicylates Acetaminophen Plasma/Serum Alcohol Crossmatch 01/06/20 01/06/20 01/06/20 00:11 05:16 11:30 WBC RBC Hgb Hct MCH RDW Plt Count Lymph % (Auto) [place] % (Auto) [place] # Baso # Seg Neutrophils % Seg Neuts % (Manual) Lymphocytes % (Manual) Monocytes % (Manual) Seg Neutrophils # Seg Neutrophils # Man Lymphocytes # (Manual) Monocytes # (Manual) Eosinophils # (Manual) Basophils # (Manual) PT INR APTT ABG pH ABG pO2 ABG HCO3 ABG O2 Saturation ABG Base Excess ABG Hemoglobin Oxyhemoglobin Sodium Potassium Chloride Carbon Dioxide BUN Creatinine Glucose POC Glucose 108 H 124 H 125 H Lactic Acid Calcium Ionized Calcium Phosphorus Magnesium Total Bilirubin AST ALT Alkaline Phosphatase Ammonia Total Creatine Kinase CK-MB (CK-2) CK-MB (CK-2) Rel Index Total Protein Albumin Urine WBC (Auto) Vancomycin Trough Salicylates Acetaminophen Plasma/Serum Alcohol Crossmatch 01/06/20 01/06/20 01/07/20 17:53 23:51 04:12 WBC 16.5 H RBC 3.29 L Hgb 9.3 L Hct 28.1 L MCH RDW 18.2 H Plt Count 526 H Lymph % (Auto) 8.4 L [place] % (Auto) [place] # 1.0 H Baso # Seg Neutrophils % 84.4 H Seg Neuts % (Manual) Lymphocytes % (Manual) Monocytes % (Manual) Seg Neutrophils # 13.9 H Seg Neutrophils # Man Lymphocytes # (Manual) Monocytes # (Manual) Eosinophils # (Manual) Basophils # (Manual) PT INR APTT ABG pH ABG pO2 ABG HCO3 ABG O2 Saturation ABG Base Excess ABG Hemoglobin Oxyhemoglobin Sodium Potassium Chloride Carbon Dioxide BUN Creatinine Glucose POC Glucose 166 H 128 H Lactic Acid Calcium Ionized Calcium Phosphorus Magnesium Total Bilirubin AST ALT Alkaline Phosphatase Ammonia Total Creatine Kinase CK-MB (CK-2) CK-MB (CK-2) Rel Index Total Protein Albumin Urine WBC (Auto) Vancomycin Trough Salicylates Acetaminophen Plasma/Serum Alcohol Crossmatch 01/07/20 01/07/20 01/07/20 04:12 04:45 11:51 WBC RBC Hgb Hct MCH RDW Plt Count Lymph % (Auto) [place] % (Auto) [place] # Baso # Seg Neutrophils % Seg Neuts % (Manual) Lymphocytes % (Manual) Monocytes % (Manual) Seg Neutrophils # Seg Neutrophils # Man Lymphocytes # (Manual) Monocytes # (Manual) Eosinophils # (Manual) Basophils # (Manual) PT INR APTT ABG pH ABG pO2 ABG HCO3 ABG O2 Saturation ABG Base Excess ABG Hemoglobin Oxyhemoglobin Sodium 136 L Potassium Chloride Carbon Dioxide 21 L BUN 44 H Creatinine 0.6 L Glucose 124 H POC Glucose 134 H 138 H Lactic Acid Calcium Ionized Calcium Phosphorus Magnesium Total Bilirubin AST ALT Alkaline Phosphatase Ammonia Total Creatine Kinase CK-MB (CK-2) CK-MB (CK-2) Rel Index Total Protein Albumin Urine WBC (Auto) Vancomycin Trough Salicylates Acetaminophen Plasma/Serum Alcohol Crossmatch 01/07/20 01/08/20 01/08/20 17:36 00:33 05:29 WBC RBC Hgb Hct MCH RDW Plt Count Lymph % (Auto) [place] % (Auto) [place] # Baso # Seg Neutrophils % Seg Neuts % (Manual) Lymphocytes % (Manual) Monocytes % (Manual) Seg Neutrophils # Seg Neutrophils # Man Lymphocytes # (Manual) Monocytes # (Manual) Eosinophils # (Manual) Basophils # (Manual) PT INR APTT ABG pH ABG pO2 ABG HCO3 ABG O2 Saturation ABG Base Excess ABG Hemoglobin Oxyhemoglobin Sodium Potassium Chloride Carbon Dioxide BUN Creatinine Glucose POC Glucose 128 H 119 H 124 H Lactic Acid Calcium Ionized Calcium Phosphorus Magnesium Total Bilirubin AST ALT Alkaline Phosphatase Ammonia Total Creatine Kinase CK-MB (CK-2) CK-MB (CK-2) Rel Index Total Protein Albumin Urine WBC (Auto) Vancomycin Trough Salicylates Acetaminophen Plasma/Serum Alcohol Crossmatch 01/08/20 01/08/20 01/08/20 12:51 20:25 23:22 WBC RBC Hgb Hct MCH RDW Plt Count Lymph % (Auto) [place] % (Auto) [place] # Baso # Seg Neutrophils % Seg Neuts % (Manual) Lymphocytes % (Manual) Monocytes % (Manual) Seg Neutrophils # Seg Neutrophils # Man Lymphocytes # (Manual) Monocytes # (Manual) Eosinophils # (Manual) Basophils # (Manual) PT INR APTT ABG pH ABG pO2 132.2 H ABG HCO3 ABG O2 Saturation ABG Base Excess ABG Hemoglobin Oxyhemoglobin Sodium Potassium Chloride Carbon Dioxide BUN Creatinine Glucose POC Glucose 128 H 127 H Lactic Acid Calcium Ionized Calcium Phosphorus Magnesium Total Bilirubin AST ALT Alkaline Phosphatase Ammonia Total Creatine Kinase CK-MB (CK-2) CK-MB (CK-2) Rel Index Total Protein Albumin Urine WBC (Auto) Vancomycin Trough Salicylates Acetaminophen Plasma/Serum Alcohol Crossmatch 01/09/20 01/09/20 01/09/20 05:48 08:51 11:29 WBC RBC Hgb Hct MCH RDW Plt Count Lymph % (Auto) [place] % (Auto) [place] # Baso # Seg Neutrophils % Seg Neuts % (Manual) Lymphocytes % (Manual) Monocytes % (Manual) Seg Neutrophils # Seg Neutrophils # Man Lymphocytes # (Manual) Monocytes # (Manual) Eosinophils # (Manual) Basophils # (Manual) PT INR APTT ABG pH ABG pO2 94.3 H ABG HCO3 ABG O2 Saturation ABG Base Excess ABG Hemoglobin 9.5 L Oxyhemoglobin Sodium Potassium Chloride Carbon Dioxide BUN Creatinine Glucose POC Glucose 120 H 112 H Lactic Acid Calcium Ionized Calcium Phosphorus Magnesium Total Bilirubin AST ALT Alkaline Phosphatase Ammonia Total Creatine Kinase CK-MB (CK-2) CK-MB (CK-2) Rel Index Total Protein Albumin Urine WBC (Auto) Vancomycin Trough Salicylates Acetaminophen Plasma/Serum Alcohol Crossmatch 01/09/20 01/10/20 01/10/20 17:57 05:17 12:28 WBC RBC Hgb Hct MCH RDW Plt Count Lymph % (Auto) [place] % (Auto) [place] # Baso # Seg Neutrophils % Seg Neuts % (Manual) Lymphocytes % (Manual) Monocytes % (Manual) Seg Neutrophils # Seg Neutrophils # Man Lymphocytes # (Manual) Monocytes # (Manual) Eosinophils # (Manual) Basophils # (Manual) PT INR APTT ABG pH ABG pO2 ABG HCO3 ABG O2 Saturation ABG Base Excess ABG Hemoglobin Oxyhemoglobin Sodium Potassium Chloride Carbon Dioxide BUN Creatinine Glucose POC Glucose 122 H 115 H 116 H Lactic Acid Calcium Ionized Calcium Phosphorus Magnesium Total Bilirubin AST ALT Alkaline Phosphatase Ammonia Total Creatine Kinase CK-MB (CK-2) CK-MB (CK-2) Rel Index Total Protein Albumin Urine WBC (Auto) Vancomycin Trough Salicylates Acetaminophen Plasma/Serum Alcohol Crossmatch 01/10/20 01/10/20 01/11/20 18:25 23:47 06:05 WBC RBC Hgb Hct MCH RDW Plt Count Lymph % (Auto) [place] % (Auto) [place] # Baso # Seg Neutrophils % Seg Neuts % (Manual) Lymphocytes % (Manual) Monocytes % (Manual) Seg Neutrophils # Seg Neutrophils # Man Lymphocytes # (Manual) Monocytes # (Manual) Eosinophils # (Manual) Basophils # (Manual) PT INR APTT ABG pH ABG pO2 ABG HCO3 ABG O2 Saturation ABG Base Excess ABG Hemoglobin Oxyhemoglobin Sodium Potassium Chloride Carbon Dioxide BUN Creatinine Glucose POC Glucose 123 H 115 H 151 H Lactic Acid Calcium Ionized Calcium Phosphorus Magnesium Total Bilirubin AST ALT Alkaline Phosphatase Ammonia Total Creatine Kinase CK-MB (CK-2) CK-MB (CK-2) Rel Index Total Protein Albumin Urine WBC (Auto) Vancomycin Trough Salicylates Acetaminophen Plasma/Serum Alcohol Crossmatch 01/11/20 01/11/20 01/11/20 07:00 07:00 12:27 WBC 11.8 H RBC 3.40 L Hgb 9.4 L Hct 29.3 L MCH RDW 18.1 H Plt Count 549 H Lymph % (Auto) [place] % (Auto) 9.1 H [place] # 1.1 H Baso # Seg Neutrophils % 73.3 H Seg Neuts % (Manual) Lymphocytes % (Manual) Monocytes % (Manual) Seg Neutrophils # 8.7 H Seg Neutrophils # Man Lymphocytes # (Manual) Monocytes # (Manual) Eosinophils # (Manual) Basophils # (Manual) PT INR APTT ABG pH ABG pO2 ABG HCO3 ABG O2 Saturation ABG Base Excess ABG Hemoglobin Oxyhemoglobin Sodium 134 L Potassium Chloride 97.7 L Carbon Dioxide 21 L BUN 38 H Creatinine 0.5 L Glucose 168 H POC Glucose 117 H Lactic Acid Calcium 10.5 H Ionized Calcium Phosphorus Magnesium Total Bilirubin AST ALT Alkaline Phosphatase Ammonia Total Creatine Kinase CK-MB (CK-2) CK-MB (CK-2) Rel Index Total Protein Albumin Urine WBC (Auto) Vancomycin Trough Salicylates Acetaminophen Plasma/Serum Alcohol Crossmatch 01/11/20 01/12/20 01/12/20 18:19 00:53 05:24 WBC RBC Hgb Hct MCH RDW Plt Count Lymph % (Auto) [place] % (Auto) [place] # Baso # Seg Neutrophils % Seg Neuts % (Manual) Lymphocytes % (Manual) Monocytes % (Manual) Seg Neutrophils # Seg Neutrophils # Man Lymphocytes # (Manual) Monocytes # (Manual) Eosinophils # (Manual) Basophils # (Manual) PT INR APTT ABG pH ABG pO2 ABG HCO3 ABG O2 Saturation ABG Base Excess ABG Hemoglobin Oxyhemoglobin Sodium Potassium Chloride Carbon Dioxide BUN Creatinine Glucose POC Glucose 126 H 126 H 128 H Lactic Acid Calcium Ionized Calcium Phosphorus Magnesium Total Bilirubin AST ALT Alkaline Phosphatase Ammonia Total Creatine Kinase CK-MB (CK-2) CK-MB (CK-2) Rel Index Total Protein Albumin Urine WBC (Auto) Vancomycin Trough Salicylates Acetaminophen Plasma/Serum Alcohol Crossmatch 01/12/20 01/12/20 01/13/20 13:39 18:02 00:27 WBC RBC Hgb Hct MCH RDW Plt Count Lymph % (Auto) [place] % (Auto) [place] # Baso # Seg Neutrophils % Seg Neuts % (Manual) Lymphocytes % (Manual) Monocytes % (Manual) Seg Neutrophils # Seg Neutrophils # Man Lymphocytes # (Manual) Monocytes # (Manual) Eosinophils # (Manual) Basophils # (Manual) PT INR APTT ABG pH ABG pO2 ABG HCO3 ABG O2 Saturation ABG Base Excess ABG Hemoglobin Oxyhemoglobin Sodium Potassium Chloride Carbon Dioxide BUN Creatinine Glucose POC Glucose 146 H 125 H 131 H Lactic Acid Calcium Ionized Calcium Phosphorus Magnesium Total Bilirubin AST ALT Alkaline Phosphatase Ammonia Total Creatine Kinase CK-MB (CK-2) CK-MB (CK-2) Rel Index Total Protein Albumin Urine WBC (Auto) Vancomycin Trough Salicylates Acetaminophen Plasma/Serum Alcohol Crossmatch 01/13/20 01/13/20 01/13/20 05:44 11:54 17:18 WBC RBC Hgb Hct MCH RDW Plt Count Lymph % (Auto) [place] % (Auto) [place] # Baso # Seg Neutrophils % Seg Neuts % (Manual) Lymphocytes % (Manual) Monocytes % (Manual) Seg Neutrophils # Seg Neutrophils # Man Lymphocytes # (Manual) Monocytes # (Manual) Eosinophils # (Manual) Basophils # (Manual) PT INR APTT ABG pH ABG pO2 ABG HCO3 ABG O2 Saturation ABG Base Excess ABG Hemoglobin Oxyhemoglobin Sodium Potassium Chloride Carbon Dioxide BUN Creatinine Glucose POC Glucose 148 H 140 H 130 H Lactic Acid Calcium Ionized Calcium Phosphorus Magnesium Total Bilirubin AST ALT Alkaline Phosphatase Ammonia Total Creatine Kinase CK-MB (CK-2) CK-MB (CK-2) Rel Index Total Protein Albumin Urine WBC (Auto) Vancomycin Trough Salicylates Acetaminophen Plasma/Serum Alcohol Crossmatch 01/14/20 01/14/20 01/14/20 00:16 05:45 12:19 WBC RBC Hgb Hct MCH RDW Plt Count Lymph % (Auto) [place] % (Auto) [place] # Baso # Seg Neutrophils % Seg Neuts % (Manual) Lymphocytes % (Manual) Monocytes % (Manual) Seg Neutrophils # Seg Neutrophils # Man Lymphocytes # (Manual) Monocytes # (Manual) Eosinophils # (Manual) Basophils # (Manual) PT INR APTT ABG pH ABG pO2 ABG HCO3 ABG O2 Saturation ABG Base Excess ABG Hemoglobin Oxyhemoglobin Sodium Potassium Chloride Carbon Dioxide BUN Creatinine Glucose POC Glucose 125 H 146 H 147 H Lactic Acid Calcium Ionized Calcium Phosphorus Magnesium Total Bilirubin AST ALT Alkaline Phosphatase Ammonia Total Creatine Kinase CK-MB (CK-2) CK-MB (CK-2) Rel Index Total Protein Albumin Urine WBC (Auto) Vancomycin Trough Salicylates Acetaminophen Plasma/Serum Alcohol Crossmatch 01/14/20 01/14/20 01/15/20 18:10 23:54 05:14 WBC RBC Hgb Hct MCH RDW Plt Count Lymph % (Auto) [place] % (Auto) [place] # Baso # Seg Neutrophils % Seg Neuts % (Manual) Lymphocytes % (Manual) Monocytes % (Manual) Seg Neutrophils # Seg Neutrophils # Man Lymphocytes # (Manual) Monocytes # (Manual) Eosinophils # (Manual) Basophils # (Manual) PT INR APTT ABG pH ABG pO2 ABG HCO3 ABG O2 Saturation ABG Base Excess ABG Hemoglobin Oxyhemoglobin Sodium Potassium Chloride Carbon Dioxide BUN Creatinine Glucose POC Glucose 136 H 109 H 111 H Lactic Acid Calcium Ionized Calcium Phosphorus Magnesium Total Bilirubin AST ALT Alkaline Phosphatase Ammonia Total Creatine Kinase CK-MB (CK-2) CK-MB (CK-2) Rel Index Total Protein Albumin Urine WBC (Auto) Vancomycin Trough Salicylates Acetaminophen Plasma/Serum Alcohol Crossmatch 01/15/20 01/15/20 01/16/20 12:34 23:25 05:06 WBC RBC Hgb Hct MCH RDW Plt Count Lymph % (Auto) [place] % (Auto) [place] # Baso # Seg Neutrophils % Seg Neuts % (Manual) Lymphocytes % (Manual) Monocytes % (Manual) Seg Neutrophils # Seg Neutrophils # Man Lymphocytes # (Manual) Monocytes # (Manual) Eosinophils # (Manual) Basophils # (Manual) PT INR APTT ABG pH ABG pO2 ABG HCO3 ABG O2 Saturation ABG Base Excess ABG Hemoglobin Oxyhemoglobin Sodium Potassium Chloride Carbon Dioxide BUN Creatinine Glucose POC Glucose 131 H 120 H 121 H Lactic Acid Calcium Ionized Calcium Phosphorus Magnesium Total Bilirubin AST ALT Alkaline Phosphatase Ammonia Total Creatine Kinase CK-MB (CK-2) CK-MB (CK-2) Rel Index Total Protein Albumin Urine WBC (Auto) Vancomycin Trough Salicylates Acetaminophen Plasma/Serum Alcohol Crossmatch 01/16/20 01/16/20 01/17/20 12:15 23:46 05:32 WBC 13.6 H RBC 3.27 L Hgb 9.3 L Hct 28.5 L MCH RDW 17.0 H Plt Count 490 H Lymph % (Auto) 13.1 L [place] % (Auto) [place] # 1.0 H Baso # Seg Neutrophils % 77.5 H Seg Neuts % (Manual) Lymphocytes % (Manual) Monocytes % (Manual) Seg Neutrophils # 10.5 H Seg Neutrophils # Man Lymphocytes # (Manual) Monocytes # (Manual) Eosinophils # (Manual) Basophils # (Manual) PT INR APTT ABG pH ABG pO2 ABG HCO3 ABG O2 Saturation ABG Base Excess ABG Hemoglobin Oxyhemoglobin Sodium Potassium Chloride Carbon Dioxide BUN Creatinine Glucose POC Glucose 152 H 107 H Lactic Acid Calcium Ionized Calcium Phosphorus Magnesium Total Bilirubin AST ALT Alkaline Phosphatase Ammonia Total Creatine Kinase CK-MB (CK-2) CK-MB (CK-2) Rel Index Total Protein Albumin Urine WBC (Auto) Vancomycin Trough Salicylates Acetaminophen Plasma/Serum Alcohol Crossmatch 01/17/20 01/17/20 01/17/20 06:47 12:16 17:21 WBC RBC Hgb Hct MCH RDW Plt Count Lymph % (Auto) [place] % (Auto) [place] # Baso # Seg Neutrophils % Seg Neuts % (Manual) Lymphocytes % (Manual) Monocytes % (Manual) Seg Neutrophils # Seg Neutrophils # Man Lymphocytes # (Manual) Monocytes # (Manual) Eosinophils # (Manual) Basophils # (Manual) PT INR APTT ABG pH ABG pO2 ABG HCO3 ABG O2 Saturation ABG Base Excess ABG Hemoglobin Oxyhemoglobin Sodium Potassium Chloride Carbon Dioxide BUN Creatinine Glucose POC Glucose 112 H 145 H 150 H Lactic Acid Calcium Ionized Calcium Phosphorus Magnesium Total Bilirubin AST ALT Alkaline Phosphatase Ammonia Total Creatine Kinase CK-MB (CK-2) CK-MB (CK-2) Rel Index Total Protein Albumin Urine WBC (Auto) Vancomycin Trough Salicylates Acetaminophen Plasma/Serum Alcohol Crossmatch 01/17/20 01/18/20 01/18/20 23:34 05:47 12:43 WBC RBC Hgb Hct MCH RDW Plt Count Lymph % (Auto) [place] % (Auto) [place] # Baso # Seg Neutrophils % Seg Neuts % (Manual) Lymphocytes % (Manual) Monocytes % (Manual) Seg Neutrophils # Seg Neutrophils # Man Lymphocytes # (Manual) Monocytes # (Manual) Eosinophils # (Manual) Basophils # (Manual) PT INR APTT ABG pH ABG pO2 ABG HCO3 ABG O2 Saturation ABG Base Excess ABG Hemoglobin Oxyhemoglobin Sodium Potassium Chloride Carbon Dioxide BUN Creatinine Glucose POC Glucose 160 H 130 H 124 H Lactic Acid Calcium Ionized Calcium Phosphorus Magnesium Total Bilirubin AST ALT Alkaline Phosphatase Ammonia Total Creatine Kinase CK-MB (CK-2) CK-MB (CK-2) Rel Index Total Protein Albumin Urine WBC (Auto) Vancomycin Trough Salicylates Acetaminophen Plasma/Serum Alcohol Crossmatch 01/18/20 01/19/20 01/19/20 18:26 00:14 06:24 WBC RBC Hgb Hct MCH RDW Plt Count Lymph % (Auto) [place] % (Auto) [place] # Baso # Seg Neutrophils % Seg Neuts % (Manual) Lymphocytes % (Manual) Monocytes % (Manual) Seg Neutrophils # Seg Neutrophils # Man Lymphocytes # (Manual) Monocytes # (Manual) Eosinophils # (Manual) Basophils # (Manual) PT INR APTT ABG pH ABG pO2 ABG HCO3 ABG O2 Saturation ABG Base Excess ABG Hemoglobin Oxyhemoglobin Sodium Potassium Chloride Carbon Dioxide BUN Creatinine Glucose POC Glucose 119 H 114 H 144 H Lactic Acid Calcium Ionized Calcium Phosphorus Magnesium Total Bilirubin AST ALT Alkaline Phosphatase Ammonia Total Creatine Kinase CK-MB (CK-2) CK-MB (CK-2) Rel Index Total Protein Albumin Urine WBC (Auto) Vancomycin Trough Salicylates Acetaminophen Plasma/Serum Alcohol Crossmatch 01/19/20 01/19/20 01/20/20 12:24 17:50 12:06 WBC RBC Hgb Hct MCH RDW Plt Count Lymph % (Auto) [place] % (Auto) [place] # Baso # Seg Neutrophils % Seg Neuts % (Manual) Lymphocytes % (Manual) Monocytes % (Manual) Seg Neutrophils # Seg Neutrophils # Man Lymphocytes # (Manual) Monocytes # (Manual) Eosinophils # (Manual) Basophils # (Manual) PT INR APTT ABG pH ABG pO2 ABG HCO3 ABG O2 Saturation ABG Base Excess ABG Hemoglobin Oxyhemoglobin Sodium Potassium Chloride Carbon Dioxide BUN Creatinine Glucose POC Glucose 132 H 144 H 135 H Lactic Acid Calcium Ionized Calcium Phosphorus Magnesium Total Bilirubin AST ALT Alkaline Phosphatase Ammonia Total Creatine Kinase CK-MB (CK-2) CK-MB (CK-2) Rel Index Total Protein Albumin Urine WBC (Auto) Vancomycin Trough Salicylates Acetaminophen Plasma/Serum Alcohol Crossmatch 01/21/20 01/21/20 01/21/20 05:46 13:02 23:49 WBC RBC Hgb Hct MCH RDW Plt Count Lymph % (Auto) [place] % (Auto) [place] # Baso # Seg Neutrophils % Seg Neuts % (Manual) Lymphocytes % (Manual) Monocytes % (Manual) Seg Neutrophils # Seg Neutrophils # Man Lymphocytes # (Manual) Monocytes # (Manual) Eosinophils # (Manual) Basophils # (Manual) PT INR APTT ABG pH ABG pO2 ABG HCO3 ABG O2 Saturation ABG Base Excess ABG Hemoglobin Oxyhemoglobin Sodium Potassium Chloride Carbon Dioxide BUN Creatinine Glucose POC Glucose 114 H 136 H 120 H Lactic Acid Calcium Ionized Calcium Phosphorus Magnesium Total Bilirubin AST ALT Alkaline Phosphatase Ammonia Total Creatine Kinase CK-MB (CK-2) CK-MB (CK-2) Rel Index Total Protein Albumin Urine WBC (Auto) Vancomycin Trough Salicylates Acetaminophen Plasma/Serum Alcohol Crossmatch 01/22/20 01/22/20 01/22/20 05:41 11:44 16:31 WBC RBC Hgb Hct MCH RDW Plt Count Lymph % (Auto) [place] % (Auto) [place] # Baso # Seg Neutrophils % Seg Neuts % (Manual) Lymphocytes % (Manual) Monocytes % (Manual) Seg Neutrophils # Seg Neutrophils # Man Lymphocytes # (Manual) Monocytes # (Manual) Eosinophils # (Manual) Basophils # (Manual) PT INR APTT ABG pH ABG pO2 ABG HCO3 ABG O2 Saturation ABG Base Excess ABG Hemoglobin Oxyhemoglobin Sodium Potassium Chloride Carbon Dioxide BUN Creatinine Glucose POC Glucose 124 H 173 H 111 H Lactic Acid Calcium Ionized Calcium Phosphorus Magnesium Total Bilirubin AST ALT Alkaline Phosphatase Ammonia Total Creatine Kinase CK-MB (CK-2) CK-MB (CK-2) Rel Index Total Protein Albumin Urine WBC (Auto) Vancomycin Trough Salicylates Acetaminophen Plasma/Serum Alcohol Crossmatch 01/22/20 01/23/20 01/23/20 23:25 05:15 12:15 WBC RBC Hgb Hct MCH RDW Plt Count Lymph % (Auto) [place] % (Auto) [place] # Baso # Seg Neutrophils % Seg Neuts % (Manual) Lymphocytes % (Manual) Monocytes % (Manual) Seg Neutrophils # Seg Neutrophils # Man Lymphocytes # (Manual) Monocytes # (Manual) Eosinophils # (Manual) Basophils # (Manual) PT INR APTT ABG pH ABG pO2 ABG HCO3 ABG O2 Saturation ABG Base Excess ABG Hemoglobin Oxyhemoglobin Sodium Potassium Chloride Carbon Dioxide BUN Creatinine Glucose POC Glucose 134 H 117 H 129 H Lactic Acid Calcium Ionized Calcium Phosphorus Magnesium Total Bilirubin AST ALT Alkaline Phosphatase Ammonia Total Creatine Kinase CK-MB (CK-2) CK-MB (CK-2) Rel Index Total Protein Albumin Urine WBC (Auto) Vancomycin Trough Salicylates Acetaminophen Plasma/Serum Alcohol Crossmatch 01/23/20 01/23/20 01/23/20 16:58 21:17 23:47 WBC RBC Hgb Hct MCH RDW Plt Count Lymph % (Auto) [place] % (Auto) [place] # Baso # Seg Neutrophils % Seg Neuts % (Manual) Lymphocytes % (Manual) Monocytes % (Manual) Seg Neutrophils # Seg Neutrophils # Man Lymphocytes # (Manual) Monocytes # (Manual) Eosinophils # (Manual) Basophils # (Manual) PT INR APTT ABG pH ABG pO2 ABG HCO3 ABG O2 Saturation ABG Base Excess ABG Hemoglobin Oxyhemoglobin Sodium Potassium Chloride Carbon Dioxide BUN Creatinine Glucose POC Glucose 156 H 185 H 156 H Lactic Acid Calcium Ionized Calcium Phosphorus Magnesium Total Bilirubin AST ALT Alkaline Phosphatase Ammonia Total Creatine Kinase CK-MB (CK-2) CK-MB (CK-2) Rel Index Total Protein Albumin Urine WBC (Auto) Vancomycin Trough Salicylates Acetaminophen Plasma/Serum Alcohol Crossmatch 01/24/20 01/24/20 01/24/20 04:47 04:47 05:59 WBC 17.8 H RBC 3.60 L Hgb Hct MCH RDW 16.2 H Plt Count 688 H Lymph % (Auto) 11.8 L [place] % (Auto) 7.5 H [place] # 1.3 H Baso # Seg Neutrophils % 79.9 H Seg Neuts % (Manual) Lymphocytes % (Manual) Monocytes % (Manual) Seg Neutrophils # 14.2 H Seg Neutrophils # Man Lymphocytes # (Manual) Monocytes # (Manual) Eosinophils # (Manual) Basophils # (Manual) PT INR APTT ABG pH ABG pO2 ABG HCO3 ABG O2 Saturation ABG Base Excess ABG Hemoglobin Oxyhemoglobin Sodium 131 L Potassium Chloride 91.2 L Carbon Dioxide BUN 22 H Creatinine 0.3 L Glucose 123 H POC Glucose 147 H Lactic Acid Calcium 10.9 H Ionized Calcium Phosphorus Magnesium Total Bilirubin AST ALT Alkaline Phosphatase Ammonia Total Creatine Kinase CK-MB (CK-2) CK-MB (CK-2) Rel Index Total Protein Albumin Urine WBC (Auto) Vancomycin Trough Salicylates Acetaminophen Plasma/Serum Alcohol Crossmatch 01/24/20 01/24/20 01/25/20 11:47 16:45 00:18 WBC RBC Hgb Hct MCH RDW Plt Count Lymph % (Auto) [place] % (Auto) [place] # Baso # Seg Neutrophils % Seg Neuts % (Manual) Lymphocytes % (Manual) Monocytes % (Manual) Seg Neutrophils # Seg Neutrophils # Man Lymphocytes # (Manual) Monocytes # (Manual) Eosinophils # (Manual) Basophils # (Manual) PT INR APTT ABG pH ABG pO2 ABG HCO3 ABG O2 Saturation ABG Base Excess ABG Hemoglobin Oxyhemoglobin Sodium Potassium Chloride Carbon Dioxide BUN Creatinine Glucose POC Glucose 114 H 108 H 119 H Lactic Acid Calcium Ionized Calcium Phosphorus Magnesium Total Bilirubin AST ALT Alkaline Phosphatase Ammonia Total Creatine Kinase CK-MB (CK-2) CK-MB (CK-2) Rel Index Total Protein Albumin Urine WBC (Auto) Vancomycin Trough Salicylates Acetaminophen Plasma/Serum Alcohol Crossmatch 01/25/20 01/25/20 01/25/20 07:18 11:58 16:56 WBC RBC Hgb Hct MCH RDW Plt Count Lymph % (Auto) [place] % (Auto) [place] # Baso # Seg Neutrophils % Seg Neuts % (Manual) Lymphocytes % (Manual) Monocytes % (Manual) Seg Neutrophils # Seg Neutrophils # Man Lymphocytes # (Manual) Monocytes # (Manual) Eosinophils # (Manual) Basophils # (Manual) PT INR APTT ABG pH ABG pO2 ABG HCO3 ABG O2 Saturation ABG Base Excess ABG Hemoglobin Oxyhemoglobin Sodium Potassium Chloride Carbon Dioxide BUN Creatinine Glucose POC Glucose 136 H 136 H 147 H Lactic Acid Calcium Ionized Calcium Phosphorus Magnesium Total Bilirubin AST ALT Alkaline Phosphatase Ammonia Total Creatine Kinase CK-MB (CK-2) CK-MB (CK-2) Rel Index Total Protein Albumin Urine WBC (Auto) Vancomycin Trough Salicylates Acetaminophen Plasma/Serum Alcohol Crossmatch 01/26/20 01/26/20 01/26/20 00:29 05:59 05:59 WBC 12.8 H RBC Hgb Hct MCH RDW 16.4 H Plt Count 743 H Lymph % (Auto) [place] % (Auto) [place] # 0.9 H Baso # Seg Neutrophils % 76.2 H Seg Neuts % (Manual) Lymphocytes % (Manual) Monocytes % (Manual) Seg Neutrophils # 9.8 H Seg Neutrophils # Man Lymphocytes # (Manual) Monocytes # (Manual) Eosinophils # (Manual) Basophils # (Manual) PT INR APTT ABG pH ABG pO2 ABG HCO3 ABG O2 Saturation ABG Base Excess ABG Hemoglobin Oxyhemoglobin Sodium 132 L Potassium Chloride 90.9 L Carbon Dioxide BUN 23 H Creatinine 0.4 L Glucose 122 H POC Glucose 107 H Lactic Acid Calcium 11.0 H Ionized Calcium Phosphorus Magnesium Total Bilirubin AST ALT Alkaline Phosphatase Ammonia Total Creatine Kinase CK-MB (CK-2) CK-MB (CK-2) Rel Index Total Protein Albumin Urine WBC (Auto) Vancomycin Trough Salicylates Acetaminophen Plasma/Serum Alcohol Crossmatch 01/26/20 01/26/20 01/26/20 06:27 12:06 16:49 WBC RBC Hgb Hct MCH RDW Plt Count Lymph % (Auto) [place] % (Auto) [place] # Baso # Seg Neutrophils % Seg Neuts % (Manual) Lymphocytes % (Manual) Monocytes % (Manual) Seg Neutrophils # Seg Neutrophils # Man Lymphocytes # (Manual) Monocytes # (Manual) Eosinophils # (Manual) Basophils # (Manual) PT INR APTT ABG pH ABG pO2 ABG HCO3 ABG O2 Saturation ABG Base Excess ABG Hemoglobin Oxyhemoglobin Sodium Potassium Chloride Carbon Dioxide BUN Creatinine Glucose POC Glucose 132 H 132 H 110 H Lactic Acid Calcium Ionized Calcium Phosphorus Magnesium Total Bilirubin AST ALT Alkaline Phosphatase Ammonia Total Creatine Kinase CK-MB (CK-2) CK-MB (CK-2) Rel Index Total Protein Albumin Urine WBC (Auto) Vancomycin Trough Salicylates Acetaminophen Plasma/Serum Alcohol Crossmatch 01/27/20 01/27/20 01/27/20 00:08 11:49 16:24 WBC RBC Hgb Hct MCH RDW Plt Count Lymph % (Auto) [place] % (Auto) [place] # Baso # Seg Neutrophils % Seg Neuts % (Manual) Lymphocytes % (Manual) Monocytes % (Manual) Seg Neutrophils # Seg Neutrophils # Man Lymphocytes # (Manual) Monocytes # (Manual) Eosinophils # (Manual) Basophils # (Manual) PT INR APTT ABG pH ABG pO2 ABG HCO3 ABG O2 Saturation ABG Base Excess ABG Hemoglobin Oxyhemoglobin Sodium Potassium Chloride Carbon Dioxide BUN Creatinine Glucose POC Glucose 107 H 119 H 129 H Lactic Acid Calcium Ionized Calcium Phosphorus Magnesium Total Bilirubin AST ALT Alkaline Phosphatase Ammonia Total Creatine Kinase CK-MB (CK-2) CK-MB (CK-2) Rel Index Total Protein Albumin Urine WBC (Auto) Vancomycin Trough Salicylates Acetaminophen Plasma/Serum Alcohol Crossmatch 01/27/20 01/28/20 01/28/20 18:28 01:00 06:22 WBC RBC Hgb Hct MCH RDW Plt Count Lymph % (Auto) [place] % (Auto) [place] # Baso # Seg Neutrophils % Seg Neuts % (Manual) Lymphocytes % (Manual) Monocytes % (Manual) Seg Neutrophils # Seg Neutrophils # Man Lymphocytes # (Manual) Monocytes # (Manual) Eosinophils # (Manual) Basophils # (Manual) PT INR APTT ABG pH ABG pO2 ABG HCO3 ABG O2 Saturation ABG Base Excess ABG Hemoglobin Oxyhemoglobin Sodium Potassium Chloride Carbon Dioxide BUN Creatinine Glucose POC Glucose 126 H 121 H 114 H Lactic Acid Calcium Ionized Calcium Phosphorus Magnesium Total Bilirubin AST ALT Alkaline Phosphatase Ammonia Total Creatine Kinase CK-MB (CK-2) CK-MB (CK-2) Rel Index Total Protein Albumin Urine WBC (Auto) Vancomycin Trough Salicylates Acetaminophen Plasma/Serum Alcohol Crossmatch 01/28/20 01/28/20 01/29/20 11:47 18:00 00:05 WBC RBC Hgb Hct MCH RDW Plt Count Lymph % (Auto) [place] % (Auto) [place] # Baso # Seg Neutrophils % Seg Neuts % (Manual) Lymphocytes % (Manual) Monocytes % (Manual) Seg Neutrophils # Seg Neutrophils # Man Lymphocytes # (Manual) Monocytes # (Manual) Eosinophils # (Manual) Basophils # (Manual) PT INR APTT ABG pH ABG pO2 ABG HCO3 ABG O2 Saturation ABG Base Excess ABG Hemoglobin Oxyhemoglobin Sodium Potassium Chloride Carbon Dioxide BUN Creatinine Glucose POC Glucose 106 H 117 H 127 H Lactic Acid Calcium Ionized Calcium Phosphorus Magnesium Total Bilirubin AST ALT Alkaline Phosphatase Ammonia Total Creatine Kinase CK-MB (CK-2) CK-MB (CK-2) Rel Index Total Protein Albumin Urine WBC (Auto) Vancomycin Trough Salicylates Acetaminophen Plasma/Serum Alcohol Crossmatch 01/29/20 01/29/20 01/29/20 06:04 11:40 16:38 WBC RBC Hgb Hct MCH RDW Plt Count Lymph % (Auto) [place] % (Auto) [place] # Baso # Seg Neutrophils % Seg Neuts % (Manual) Lymphocytes % (Manual) Monocytes % (Manual) Seg Neutrophils # Seg Neutrophils # Man Lymphocytes # (Manual) Monocytes # (Manual) Eosinophils # (Manual) Basophils # (Manual) PT INR APTT ABG pH ABG pO2 ABG HCO3 ABG O2 Saturation ABG Base Excess ABG Hemoglobin Oxyhemoglobin Sodium Potassium Chloride Carbon Dioxide BUN Creatinine Glucose POC Glucose 147 H 139 H 143 H Lactic Acid Calcium Ionized Calcium Phosphorus Magnesium Total Bilirubin AST ALT Alkaline Phosphatase Ammonia Total Creatine Kinase CK-MB (CK-2) CK-MB (CK-2) Rel Index Total Protein Albumin Urine WBC (Auto) Vancomycin Trough Salicylates Acetaminophen Plasma/Serum Alcohol Crossmatch 05/12/20 05/13/20 05/13/20 23:46 06:43 12:07 WBC RBC Hgb Hct MCH RDW Plt Count Lymph % (Auto) [place] % (Auto) [place] # Baso # Seg Neutrophils % Seg Neuts % (Manual) Lymphocytes % (Manual) Monocytes % (Manual) Seg Neutrophils # Seg Neutrophils # Man Lymphocytes # (Manual) Monocytes # (Manual) Eosinophils # (Manual) Basophils # (Manual) PT INR APTT ABG pH ABG pO2 ABG HCO3 ABG O2 Saturation ABG Base Excess ABG Hemoglobin Oxyhemoglobin Sodium Potassium Chloride Carbon Dioxide BUN Creatinine Glucose POC Glucose 122 H 122 H 134 H Lactic Acid Calcium Ionized Calcium Phosphorus Magnesium Total Bilirubin AST ALT Alkaline Phosphatase Ammonia Total Creatine Kinase CK-MB (CK-2) CK-MB (CK-2) Rel Index Total Protein Albumin Urine WBC (Auto) Vancomycin Trough Salicylates Acetaminophen Plasma/Serum Alcohol Crossmatch 01/30/20 01/31/20 01/31/20 17:59 00:52 05:54 WBC RBC Hgb Hct MCH RDW Plt Count Lymph % (Auto) [place] % (Auto) [place] # Baso # Seg Neutrophils % Seg Neuts % (Manual) Lymphocytes % (Manual) Monocytes % (Manual) Seg Neutrophils # Seg Neutrophils # Man Lymphocytes # (Manual) Monocytes # (Manual) Eosinophils # (Manual) Basophils # (Manual) PT INR APTT ABG pH ABG pO2 ABG HCO3 ABG O2 Saturation ABG Base Excess ABG Hemoglobin Oxyhemoglobin Sodium Potassium Chloride Carbon Dioxide BUN Creatinine Glucose POC Glucose 116 H 127 H 127 H Lactic Acid Calcium Ionized Calcium Phosphorus Magnesium Total Bilirubin AST ALT Alkaline Phosphatase Ammonia Total Creatine Kinase CK-MB (CK-2) CK-MB (CK-2) Rel Index Total Protein Albumin Urine WBC (Auto) Vancomycin Trough Salicylates Acetaminophen Plasma/Serum Alcohol Crossmatch 01/31/20 02/01/20 02/01/20 12:20 00:48 12:21 WBC RBC Hgb Hct MCH RDW Plt Count Lymph % (Auto) [place] % (Auto) [place] # Baso # Seg Neutrophils % Seg Neuts % (Manual) Lymphocytes % (Manual) Monocytes % (Manual) Seg Neutrophils # Seg Neutrophils # Man Lymphocytes # (Manual) Monocytes # (Manual) Eosinophils # (Manual) Basophils # (Manual) PT INR APTT ABG pH ABG pO2 ABG HCO3 ABG O2 Saturation ABG Base Excess ABG Hemoglobin Oxyhemoglobin Sodium Potassium Chloride Carbon Dioxide BUN Creatinine Glucose POC Glucose 126 H 154 H 123 H Lactic Acid Calcium Ionized Calcium Phosphorus Magnesium Total Bilirubin AST ALT Alkaline Phosphatase Ammonia Total Creatine Kinase CK-MB (CK-2) CK-MB (CK-2) Rel Index Total Protein Albumin Urine WBC (Auto) Vancomycin Trough Salicylates Acetaminophen Plasma/Serum Alcohol Crossmatch 02/01/20 02/02/20 02/02/20 23:58 06:08 11:50 WBC RBC Hgb Hct MCH RDW Plt Count Lymph % (Auto) [place] % (Auto) [place] # Baso # Seg Neutrophils % Seg Neuts % (Manual) Lymphocytes % (Manual) Monocytes % (Manual) Seg Neutrophils # Seg Neutrophils # Man Lymphocytes # (Manual) Monocytes # (Manual) Eosinophils # (Manual) Basophils # (Manual) PT INR APTT ABG pH ABG pO2 ABG HCO3 ABG O2 Saturation ABG Base Excess ABG Hemoglobin Oxyhemoglobin Sodium Potassium Chloride Carbon Dioxide BUN Creatinine Glucose POC Glucose 125 H 144 H 131 H Lactic Acid Calcium Ionized Calcium Phosphorus Magnesium Total Bilirubin AST ALT Alkaline Phosphatase Ammonia Total Creatine Kinase CK-MB (CK-2) CK-MB (CK-2) Rel Index Total Protein Albumin Urine WBC (Auto) Vancomycin Trough Salicylates Acetaminophen Plasma/Serum Alcohol Crossmatch 02/02/20 02/03/20 02/03/20 17:53 00:14 05:47 WBC RBC Hgb Hct MCH RDW Plt Count Lymph % (Auto) [place] % (Auto) [place] # Baso # Seg Neutrophils % Seg Neuts % (Manual) Lymphocytes % (Manual) Monocytes % (Manual) Seg Neutrophils # Seg Neutrophils # Man Lymphocytes # (Manual) Monocytes # (Manual) Eosinophils # (Manual) Basophils # (Manual) PT INR APTT ABG pH ABG pO2 ABG HCO3 ABG O2 Saturation ABG Base Excess ABG Hemoglobin Oxyhemoglobin Sodium Potassium Chloride Carbon Dioxide BUN Creatinine Glucose POC Glucose 108 H 122 H 118 H Lactic Acid Calcium Ionized Calcium Phosphorus Magnesium Total Bilirubin AST ALT Alkaline Phosphatase Ammonia Total Creatine Kinase CK-MB (CK-2) CK-MB (CK-2) Rel Index Total Protein Albumin Urine WBC (Auto) Vancomycin Trough Salicylates Acetaminophen Plasma/Serum Alcohol Crossmatch 02/03/20 02/03/20 02/03/20 05:59 05:59 11:49 WBC RBC 3.48 L Hgb Hct 29.9 L MCH RDW 16.2 H Plt Count 707 H Lymph % (Auto) [place] % (Auto) 9.3 H [place] # 0.9 H Baso # Seg Neutrophils % Seg Neuts % (Manual) Lymphocytes % (Manual) Monocytes % (Manual) Seg Neutrophils # Seg Neutrophils # Man Lymphocytes # (Manual) Monocytes # (Manual) Eosinophils # (Manual) Basophils # (Manual) PT INR APTT ABG pH ABG pO2 ABG HCO3 ABG O2 Saturation ABG Base Excess ABG Hemoglobin Oxyhemoglobin Sodium 136 L Potassium Chloride 93.4 L Carbon Dioxide BUN 20 H Creatinine 0.5 L Glucose 101 H POC Glucose 133 H Lactic Acid Calcium 10.8 H Ionized Calcium Phosphorus Magnesium Total Bilirubin AST ALT Alkaline Phosphatase Ammonia Total Creatine Kinase CK-MB (CK-2) CK-MB (CK-2) Rel Index Total Protein Albumin Urine WBC (Auto) Vancomycin Trough Salicylates Acetaminophen Plasma/Serum Alcohol Crossmatch 02/03/20 02/04/20 02/04/20 23:19 05:37 23:56 WBC RBC Hgb Hct MCH RDW Plt Count Lymph % (Auto) [place] % (Auto) [place] # Baso # Seg Neutrophils % Seg Neuts % (Manual) Lymphocytes % (Manual) Monocytes % (Manual) Seg Neutrophils # Seg Neutrophils # Man Lymphocytes # (Manual) Monocytes # (Manual) Eosinophils # (Manual) Basophils # (Manual) PT INR APTT ABG pH ABG pO2 ABG HCO3 ABG O2 Saturation ABG Base Excess ABG Hemoglobin Oxyhemoglobin Sodium Potassium Chloride Carbon Dioxide BUN Creatinine Glucose POC Glucose 135 H 108 H 158 H Lactic Acid Calcium Ionized Calcium Phosphorus Magnesium Total Bilirubin AST ALT Alkaline Phosphatase Ammonia Total Creatine Kinase CK-MB (CK-2) CK-MB (CK-2) Rel Index Total Protein Albumin Urine WBC (Auto) Vancomycin Trough Salicylates Acetaminophen Plasma/Serum Alcohol Crossmatch 02/05/20 02/05/20 02/06/20 05:33 23:24 05:50 WBC RBC Hgb Hct MCH RDW Plt Count Lymph % (Auto) [place] % (Auto) [place] # Baso # Seg Neutrophils % Seg Neuts % (Manual) Lymphocytes % (Manual) Monocytes % (Manual) Seg Neutrophils # Seg Neutrophils # Man Lymphocytes # (Manual) Monocytes # (Manual) Eosinophils # (Manual) Basophils # (Manual) PT INR APTT ABG pH ABG pO2 ABG HCO3 ABG O2 Saturation ABG Base Excess ABG Hemoglobin Oxyhemoglobin Sodium Potassium Chloride Carbon Dioxide BUN Creatinine Glucose POC Glucose 152 H 158 H 110 H Lactic Acid Calcium Ionized Calcium Phosphorus Magnesium Total Bilirubin AST ALT Alkaline Phosphatase Ammonia Total Creatine Kinase CK-MB (CK-2) CK-MB (CK-2) Rel Index Total Protein Albumin Urine WBC (Auto) Vancomycin Trough Salicylates Acetaminophen Plasma/Serum Alcohol Crossmatch 02/06/20 02/07/20 02/07/20 16:03 00:13 05:27 WBC RBC Hgb Hct MCH RDW Plt Count Lymph % (Auto) [place] % (Auto) [place] # Baso # Seg Neutrophils % Seg Neuts % (Manual) Lymphocytes % (Manual) Monocytes % (Manual) Seg Neutrophils # Seg Neutrophils # Man Lymphocytes # (Manual) Monocytes # (Manual) Eosinophils # (Manual) Basophils # (Manual) PT INR APTT ABG pH ABG pO2 ABG HCO3 ABG O2 Saturation ABG Base Excess ABG Hemoglobin Oxyhemoglobin Sodium Potassium Chloride Carbon Dioxide BUN Creatinine Glucose POC Glucose 130 H 115 H 115 H Lactic Acid Calcium Ionized Calcium Phosphorus Magnesium Total Bilirubin AST ALT Alkaline Phosphatase Ammonia Total Creatine Kinase CK-MB (CK-2) CK-MB (CK-2) Rel Index Total Protein Albumin Urine WBC (Auto) Vancomycin Trough Salicylates Acetaminophen Plasma/Serum Alcohol Crossmatch 02/07/20 02/07/20 02/08/20 11:42 17:23 00:37 WBC RBC Hgb Hct MCH RDW Plt Count Lymph % (Auto) [place] % (Auto) [place] # Baso # Seg Neutrophils % Seg Neuts % (Manual) Lymphocytes % (Manual) Monocytes % (Manual) Seg Neutrophils # Seg Neutrophils # Man Lymphocytes # (Manual) Monocytes # (Manual) Eosinophils # (Manual) Basophils # (Manual) PT INR APTT ABG pH ABG pO2 ABG HCO3 ABG O2 Saturation ABG Base Excess ABG Hemoglobin Oxyhemoglobin Sodium Potassium Chloride Carbon Dioxide BUN Creatinine Glucose POC Glucose 113 H 114 H 136 H Lactic Acid Calcium Ionized Calcium Phosphorus Magnesium Total Bilirubin AST ALT Alkaline Phosphatase Ammonia Total Creatine Kinase CK-MB (CK-2) CK-MB (CK-2) Rel Index Total Protein Albumin Urine WBC (Auto) Vancomycin Trough Salicylates Acetaminophen Plasma/Serum Alcohol Crossmatch 02/08/20 02/08/20 02/08/20 08:52 11:42 17:02 WBC RBC Hgb Hct MCH RDW Plt Count Lymph % (Auto) [place] % (Auto) [place] # Baso # Seg Neutrophils % Seg Neuts % (Manual) Lymphocytes % (Manual) Monocytes % (Manual) Seg Neutrophils # Seg Neutrophils # Man Lymphocytes # (Manual) Monocytes # (Manual) Eosinophils # (Manual) Basophils # (Manual) PT INR APTT ABG pH ABG pO2 ABG HCO3 ABG O2 Saturation ABG Base Excess ABG Hemoglobin Oxyhemoglobin Sodium 136 L Potassium Chloride 95.7 L Carbon Dioxide BUN 21 H Creatinine 0.4 L Glucose POC Glucose 128 H 145 H Lactic Acid Calcium 10.4 H Ionized Calcium Phosphorus Magnesium Total Bilirubin AST ALT Alkaline Phosphatase Ammonia Total Creatine Kinase CK-MB (CK-2) CK-MB (CK-2) Rel Index Total Protein Albumin Urine WBC (Auto) Vancomycin Trough Salicylates Acetaminophen Plasma/Serum Alcohol Crossmatch 02/09/20 02/09/20 02/09/20 01:05 11:52 16:19 WBC RBC Hgb Hct MCH RDW Plt Count Lymph % (Auto) [place] % (Auto) [place] # Baso # Seg Neutrophils % Seg Neuts % (Manual) Lymphocytes % (Manual) Monocytes % (Manual) Seg Neutrophils # Seg Neutrophils # Man Lymphocytes # (Manual) Monocytes # (Manual) Eosinophils # (Manual) Basophils # (Manual) PT INR APTT ABG pH ABG pO2 ABG HCO3 ABG O2 Saturation ABG Base Excess ABG Hemoglobin Oxyhemoglobin Sodium Potassium Chloride Carbon Dioxide BUN Creatinine Glucose POC Glucose 117 H 141 H 113 H Lactic Acid Calcium Ionized Calcium Phosphorus Magnesium Total Bilirubin AST ALT Alkaline Phosphatase Ammonia Total Creatine Kinase CK-MB (CK-2) CK-MB (CK-2) Rel Index Total Protein Albumin Urine WBC (Auto) Vancomycin Trough Salicylates Acetaminophen Plasma/Serum Alcohol Crossmatch 02/10/20 02/10/20 02/10/20 05:25 12:50 17:08 WBC RBC Hgb Hct MCH RDW Plt Count Lymph % (Auto) [place] % (Auto) [place] # Baso # Seg Neutrophils % Seg Neuts % (Manual) Lymphocytes % (Manual) Monocytes % (Manual) Seg Neutrophils # Seg Neutrophils # Man Lymphocytes # (Manual) Monocytes # (Manual) Eosinophils # (Manual) Basophils # (Manual) PT INR APTT ABG pH ABG pO2 ABG HCO3 ABG O2 Saturation ABG Base Excess ABG Hemoglobin Oxyhemoglobin Sodium Potassium Chloride Carbon Dioxide BUN Creatinine Glucose POC Glucose 136 H 127 H 111 H Lactic Acid Calcium Ionized Calcium Phosphorus Magnesium Total Bilirubin AST ALT Alkaline Phosphatase Ammonia Total Creatine Kinase CK-MB (CK-2) CK-MB (CK-2) Rel Index Total Protein Albumin Urine WBC (Auto) Vancomycin Trough Salicylates Acetaminophen Plasma/Serum Alcohol Crossmatch 02/10/20 02/11/20 02/11/20 23:55 06:11 12:07 WBC RBC Hgb Hct MCH RDW Plt Count Lymph % (Auto) [place] % (Auto) [place] # Baso # Seg Neutrophils % Seg Neuts % (Manual) Lymphocytes % (Manual) Monocytes % (Manual) Seg Neutrophils # Seg Neutrophils # Man Lymphocytes # (Manual) Monocytes # (Manual) Eosinophils # (Manual) Basophils # (Manual) PT INR APTT ABG pH ABG pO2 ABG HCO3 ABG O2 Saturation ABG Base Excess ABG Hemoglobin Oxyhemoglobin Sodium Potassium Chloride Carbon Dioxide BUN Creatinine Glucose POC Glucose 129 H 128 H 141 H Lactic Acid Calcium Ionized Calcium Phosphorus Magnesium Total Bilirubin AST ALT Alkaline Phosphatase Ammonia Total Creatine Kinase CK-MB (CK-2) CK-MB (CK-2) Rel Index Total Protein Albumin Urine WBC (Auto) Vancomycin Trough Salicylates Acetaminophen Plasma/Serum Alcohol Crossmatch 02/11/20 02/12/20 02/13/20 18:22 02:39 06:45 WBC RBC Hgb Hct MCH RDW Plt Count Lymph % (Auto) [place] % (Auto) [place] # Baso # Seg Neutrophils % Seg Neuts % (Manual) Lymphocytes % (Manual) Monocytes % (Manual) Seg Neutrophils # Seg Neutrophils # Man Lymphocytes # (Manual) Monocytes # (Manual) Eosinophils # (Manual) Basophils # (Manual) PT INR APTT ABG pH ABG pO2 ABG HCO3 ABG O2 Saturation ABG Base Excess ABG Hemoglobin Oxyhemoglobin Sodium Potassium Chloride Carbon Dioxide BUN Creatinine Glucose POC Glucose 118 H 107 H 124 H Lactic Acid Calcium Ionized Calcium Phosphorus Magnesium Total Bilirubin AST ALT Alkaline Phosphatase Ammonia Total Creatine Kinase CK-MB (CK-2) CK-MB (CK-2) Rel Index Total Protein Albumin Urine WBC (Auto) Vancomycin Trough Salicylates Acetaminophen Plasma/Serum Alcohol Crossmatch 02/13/20 02/13/20 02/14/20 12:26 18:19 00:21 WBC RBC Hgb Hct MCH RDW Plt Count Lymph % (Auto) [place] % (Auto) [place] # Baso # Seg Neutrophils % Seg Neuts % (Manual) Lymphocytes % (Manual) Monocytes % (Manual) Seg Neutrophils # Seg Neutrophils # Man Lymphocytes # (Manual) Monocytes # (Manual) Eosinophils # (Manual) Basophils # (Manual) PT INR APTT ABG pH ABG pO2 ABG HCO3 ABG O2 Saturation ABG Base Excess ABG Hemoglobin Oxyhemoglobin Sodium Potassium Chloride Carbon Dioxide BUN Creatinine Glucose POC Glucose 124 H 118 H 130 H Lactic Acid Calcium Ionized Calcium Phosphorus Magnesium Total Bilirubin AST ALT Alkaline Phosphatase Ammonia Total Creatine Kinase CK-MB (CK-2) CK-MB (CK-2) Rel Index Total Protein Albumin Urine WBC (Auto) Vancomycin Trough Salicylates Acetaminophen Plasma/Serum Alcohol Crossmatch 02/14/20 02/14/20 02/16/20 11:19 16:16 00:58 WBC RBC Hgb Hct MCH RDW Plt Count Lymph % (Auto) [place] % (Auto) [place] # Baso # Seg Neutrophils % Seg Neuts % (Manual) Lymphocytes % (Manual) Monocytes % (Manual) Seg Neutrophils # Seg Neutrophils # Man Lymphocytes # (Manual) Monocytes # (Manual) Eosinophils # (Manual) Basophils # (Manual) PT INR APTT ABG pH ABG pO2 ABG HCO3 ABG O2 Saturation ABG Base Excess ABG Hemoglobin Oxyhemoglobin Sodium Potassium Chloride Carbon Dioxide BUN Creatinine Glucose POC Glucose 135 H 119 H 121 H Lactic Acid Calcium Ionized Calcium Phosphorus Magnesium Total Bilirubin AST ALT Alkaline Phosphatase Ammonia Total Creatine Kinase CK-MB (CK-2) CK-MB (CK-2) Rel Index Total Protein Albumin Urine WBC (Auto) Vancomycin Trough Salicylates Acetaminophen Plasma/Serum Alcohol Crossmatch 02/16/20 02/16/20 02/16/20 12:12 18:22 23:51 WBC RBC Hgb Hct MCH RDW Plt Count Lymph % (Auto) [place] % (Auto) [place] # Baso # Seg Neutrophils % Seg Neuts % (Manual) Lymphocytes % (Manual) Monocytes % (Manual) Seg Neutrophils # Seg Neutrophils # Man Lymphocytes # (Manual) Monocytes # (Manual) Eosinophils # (Manual) Basophils # (Manual) PT INR APTT ABG pH ABG pO2 ABG HCO3 ABG O2 Saturation ABG Base Excess ABG Hemoglobin Oxyhemoglobin Sodium Potassium Chloride Carbon Dioxide BUN Creatinine Glucose POC Glucose 107 H 106 H 128 H Lactic Acid Calcium Ionized Calcium Phosphorus Magnesium Total Bilirubin AST ALT Alkaline Phosphatase Ammonia Total Creatine Kinase CK-MB (CK-2) CK-MB (CK-2) Rel Index Total Protein Albumin Urine WBC (Auto) Vancomycin Trough Salicylates Acetaminophen Plasma/Serum Alcohol Crossmatch 02/17/20 02/17/20 02/17/20 05:50 07:57 07:57 WBC 12.6 H RBC 3.52 L Hgb Hct MCH RDW 15.3 H Plt Count 643 H Lymph % (Auto) [place] % (Auto) 8.0 H [place] # 1.0 H Baso # Seg Neutrophils % Seg Neuts % (Manual) Lymphocytes % (Manual) Monocytes % (Manual) Seg Neutrophils # 8.5 H Seg Neutrophils # Man Lymphocytes # (Manual) Monocytes # (Manual) Eosinophils # (Manual) Basophils # (Manual) PT INR APTT ABG pH ABG pO2 ABG HCO3 ABG O2 Saturation ABG Base Excess ABG Hemoglobin Oxyhemoglobin Sodium Potassium Chloride 96.9 L Carbon Dioxide BUN 21 H Creatinine 0.4 L Glucose 113 H POC Glucose 116 H Lactic Acid Calcium 10.5 H Ionized Calcium Phosphorus Magnesium Total Bilirubin AST ALT Alkaline Phosphatase Ammonia Total Creatine Kinase CK-MB (CK-2) CK-MB (CK-2) Rel Index Total Protein Albumin Urine WBC (Auto) Vancomycin Trough Salicylates Acetaminophen Plasma/Serum Alcohol Crossmatch Allied health notes reviewed: RT
[2020-02-17] MEDS: ACETAMINOPHEN 325 MG/10.15 ML ORAL LIQD UNIT DOSE FEEDTUBE PRN (22:05)
[2020-02-17] MEDS: QUEtiapine 100 MG TAB FEEDTUBE SCH (22:05)
[2020-02-18] MEDS: LEVALBUTEROL 0.63 MG/3 ML NEBU IH SCH ×3 (00:15→15:34)
[2020-02-18] MEDS: ACETYLCYSTEINE 20% 200 MG/1 ML *FOR INHALATION USE INHALATION SCH ×2 (07:48)
[2020-02-18] MEDS ORDERED: HALOPERIDOL LACTATE 5 MG/1 ML INJ IM NR (09:10)
[2020-02-18] MEDS: SERTRALINE 50 MG TAB PO SCH (10:00)
[2020-02-18] MEDS: levETIRAcetam 500 MG/5 ML ORAL LIQD PO SCH ×2 (10:00→22:07)
[2020-02-18] MEDS: DOCUSATE SODIUM 100 MG CAP PO SCH (10:00)
[2020-02-18] MEDS: LANSOPRAZOLE 30 MG SOLUTAB FEEDTUBE SCH (10:01)
[2020-02-18] MEDS: MIRTAZAPINE 30 MG TAB PO SCH (10:01)
[2020-02-18] MEDS: NICOTINE 21 MG/24 HR PATCH TD SCH (10:12)
[2020-02-18] MEDS: hydrOXYzine PAMOATE 25 MG CAP PO SCH ×2 (10:13→22:07)
--- NOTE | 2020-02-18 12:37 | Progress Note ---
Assessment and Plan Assessment and plan: 54-year-old female with a past medical history of Hypertension, Depression, Tobacco use Disorder, Alcohol use Disorder as confirmed by Daughter and pt's mother presents to the hospital status post cardiac arrest. Patient is from home and family called EMS at 22: 27 for the pt who had told family members that she was not feeling good and c/o her chronic hip pain. She urinated and then was speaking, then she " froze and was rigid " per daughter and she became unresponsive and stopped breathing. Immediately, family began CPR. EMS found pt in PEA. Upon their arrival patient in SinuS Tachycardia.. They were unable to intubate patient with a ET tube because she was clenching down therefore Joe airway placed. Patient received Narcan and Epinephrine. Patient's rhythm changed to PEA to sinus bradycardia, to PEA, then to sinus tach after receiving Narcan and Epinephrine. Per the ED physician who evaluated pt, Patient presented with a pulse, intermittent respirations, and bagging support via Joe airway with O2 sat of 100%. Accu-Chek of 71 obtained by EMS Following admission patient was diagnosed with anoxic brain injury, sepsis with MRSA bacteremia and MSSA pneumonia, alcoholic liver disease. Family member initially wished for full code then changed to DNR, patient treated with IV a ntibiotics for sepsis, status post trach and PEG on 12/13/19. Weaned off from the vent and put on T-piece. Patient is uninsured, waiting for placement, guarded prognosis. Dr. Rodriguez spoke to patient's family (daughter and mother). MOther is Anh Jesus- [phone] and she would like to be called about pt's progress or notified about the pt. No seizure activity was noted. They deny that patient had any preceding infection symptoms, cough, fever, complaints of chest pain, shortness of breath, or any bleeding diathesis, melena, hematochezia, hematuria, hematemesis, or abdominal pain. Patient is a known alcoholic and continues to drink per daughter. No history could be obtained from the pt due to her mechanical ventilation. No previous hx of DVT/PE per mother and daughter. 02/13/2020 continue aggressive pulmonary toilet. Agree with addition of Mucomyst every 72 hours. Continue wound care. Awaiting discussion with family about CODE STATUS this has been initiated by the pulmonary doctor have also advised that I am available if the family would like to combine the hospital. Will obtain psych evaluation for anxiety which is understandable in the patient's current medical condition. 02/13: No clinical change. Continue aggressive therapy and weaning, Pulmonary toilet. 02/14: Psy to see due to hallucinations : The patient does not meet the requirement for acute in patient psychiatric treatment. It is my clinical opinion the patient's mental condition is likely due to complex medical conditions and he would not improve nor benefit from out services at this time. Still pending disposition 02/15: Check labs, Vitals stabilizing, No new seizures reported. Still speaking to self. Continue aggressive pulmonary toilet via Trach. Continue management of wound around the trach with adequate dressing changes. 02/16: Continues on current clinical form still needing aggressive suctioning. Passy-Alena valve trial ongoing unfortunately heart rate goes up to 140s intermittently remains on telemetry monitoring for the same reason. Continue aggressive pulmonary toilet. Lab today shows persistent leukocytosis. No fever noted still with tachycardia yesterday was started on nicotine patch per patient's request according to nursing staff. Will monitor chest x-ray as ordered, reviewed reveals no acute findings. 02/17: Patient pending placement, Following extubation, the patient has remained with AMS, on restraints, no new fever but tachycardia, still requiring aggressive pulmonary toilet. / Anoxic brain injury: suspected CT head: No acute abnormality. EEG ordered showed Generalized slowing. No seizures or epileptiform activity. -Patient now opening her eyes, can speak and able to follow minor command by no dding head /Acute Respiratory failure with hypoxia -s/p Tracheostomy Status post cardiac arrest -s/p intubation, s/p trach and PEG on 12/12 with mechanical ventilation, now on T-piece - CTA was done and negative for PE, - Echo quality is poor, showed diastolic dysfunction - continue weaning as tolerated /Oropharyngeal dysphagia s/p PEG /Persistent Tachycardia -Check TSH and Free T4 /BHAVANA secondary to vasomotor nephropathy /Anemia, microcytic - Status post 3 units PRBC transfusion, H&H low stable /Acute metabolic encephalopathy/toxic encephalopathy due to the above - cont supportive care /Hyperammonemia - likely from liver disease related to EtOH abuse - Patient had elevated ammonia level and treated with lactulose /Metabolic Acidosis -Alcohol ketoacidosis vs hypoprofusion -Continue to monitor /Acute cystitis /ELevated LFTs, stable now - due to ischemic hepatitis. /Leucocytosis with sepsis - Source MRSA bacteremia and MSSA pneumonia. UA showed pyuria. RUQ US showed no ascites. - Repeat TTE negative for vegetation. Completed 7 days of Ceftriaxone on 11/29/2019. -Treated with Abx vancomycin 1 gm IV q 12 hour total 2 week till 12/30/2019 /MSSA pneumonia: Status post vancomycin till 12/30/2019 /ALcohol USe Disorder - given ongoing Alcohol use almost daily, s/p IV Thiamine - monitor /Severe hypokalemia -Repleted /Seizure disorder: treat with Keppra /H. Influenzae, tracheobronchitis, treated with abx /Moderate to severe fecal impaction - will add stool softner /Anxiety disorder: Psych consulted DNR CODE STATUS Disposition: prognosis guarded. Family okay for DNR, PT recommended subacute rehab, discharge pending on placement. negative for COVID 19 Awaiting Placement to SNF History Interval history: Patient seen and examined, awake, continues to show some type of frustration although answers questions appropriately by nodding head yes or no intermittently comprehension still for concern. Still agitated still trying to get out of bed. Hospitalist Physical - Physical exam Narrative exam: General appearance: Present: Mild respiratory distress tracheostomy noted wound around the site increased secretions. - EENT Eyes: PERRL ENT: hearing intact, clear oral mucosa, neck wound around trach. - Neck Neck: supple, normal ROM - Respiratory Respiratory: bilateral: CTA, diminished - Breasts Breasts: normal - Cardiovascular Rhythm: regular Extremities: pulses intact, No edema, normal color, Full ROM - Gastrointestinal General gastrointestinal: Present: soft, non-tender, non-distended, normal bowel sounds, hypoactive bowel sounds - Genitourinary Female genitourinary: normal - Integumentary Integumentary: See wound care documentation of trach wound. - Musculoskeletal Musculoskeletal: generalized weakness - Neurologic Neurologic: focal deficits, intermittent confusion - Constitutional Vitals: Temp Pulse Resp BP Pulse Ox 98.8 F 110 H 22 123/75 97 02/18/20 07:34 02/18/20 07:34 02/18/20 07:34 02/18/20 07:34 02/18/20 07:34 General appearance: Present: no acute distress HEART Score - HEART Score Troponin: Troponin T < 0.010 ng/mL (0.00-0.029) 11/22/19 23:27 Results - Labs CBC & Chem 7: 02/17/20 07:57 02/17/20 07:57 Labs: Laboratory Last Values WBC 12.6 K/mm3 (4.5-11.0) H 02/17/20 07:57 RBC 3.52 M/mm3 (3.65-5.03) L 02/17/20 07:57 Hgb 10.2 gm/dl (10.1-14.3) 02/17/20 07:57 Hct 30.8 % (30.3-42.9) 02/17/20 07:57 MCV 88 fl (79-97) 02/17/20 07:57 MCH 29 pg (28-32) 02/17/20 07:57 MCHC 33 % (30-34) 02/17/20 07:57 RDW 15.3 % (13.2-15.2) H 02/17/20 07:57 Plt Count 643 K/mm3 (140-440) H 02/17/20 07:57 Lymph % (Auto) 21.3 % (13.4-35.0) 02/17/20 07:57 [place] % (Auto) 8.0 % (0.0-7.3) H 02/17/20 07:57 Eos % (Auto) 2.5 % (0.0-4.3) 02/17/20 07:57 Baso % (Auto) 0.5 % (0.0-1.8) 02/17/20 07:57 Lymph # 2.7 K/mm3 (1.2-5.4) 02/17/20 07:57 [place] # 1.0 K/mm3 (0.0-0.8) H 02/17/20 07:57 Eos # 0.3 K/mm3 (0.0-0.4) 02/17/20 07:57 Baso # 0.1 K/mm3 (0.0-0.1) 02/17/20 07:57 Add Manual Diff Complete 12/25/19 03:47 Total Counted 200 12/25/19 03:47 Seg Neutrophils % 67.7 % (40.0-70.0) 02/17/20 07:57 Seg Neuts % (Manual) 97.5 % (40.0-70.0) H 12/25/19 03:47 Band Neutrophils % 0 % 12/25/19 03:47 Lymphocytes % (Manual) 1.0 % (13.4-35.0) L 12/25/19 03:47 Reactive Lymphs % (Man) 0 % 12/25/19 03:47 Monocytes % (Manual) 1.5 % (0.0-7.3) 12/25/19 03:47 Eosinophils % (Manual) 0 % (0.0-4.3) 12/25/19 03:47 Basophils % (Manual) 0 % (0.0-1.8) 12/25/19 03:47 Metamyelocytes % 0 % 12/25/19 03:47 Myelocytes % 0 % 12/25/19 03:47 Promyelocytes % 0 % 12/25/19 03:47 Blast Cells % 0 % 12/25/19 03:47 Nucleated RBC % Not Reportable 12/25/19 03:47 Seg Neutrophils # 8.5 K/mm3 (1.8-7.7) H 02/17/20 07:57 Seg Neutrophils # Man 35.3 K/mm3 (1.8-7.7) H 12/25/19 03:47 Band Neutrophils # 0.0 K/mm3 12/25/19 03:47 Lymphocytes # (Manual) 0.4 K/mm3 (1.2-5.4) L 12/25/19 03:47 Abs React Lymphs (Man) 0.0 K/mm3 12/25/19 03:47 Monocytes # (Manual) 0.5 K/mm3 (0.0-0.8) 12/25/19 03:47 Eosinophils # (Manual) 0.0 K/mm3 (0.0-0.4) 12/25/19 03:47 Basophils # (Manual) 0.0 K/mm3 (0.0-0.1) 12/25/19 03:47 Metamyelocytes # 0.0 K/mm3 12/25/19 03:47 Myelocytes # 0.0 K/mm3 12/25/19 03:47 Promyelocytes # 0.0 K/mm3 12/25/19 03:47 Blast Cells # 0.0 K/mm3 12/25/19 03:47 Pathologist Review 12/13/19 07:48 WBC Morphology Not Reportable 12/25/19 03:47 Hypersegmented Neuts Not Reportable 12/25/19 03:47 Hyposegmented Neuts Not Reportable 12/25/19 03:47 Hypogranular Neuts Not Reportable 12/25/19 03:47 Smudge Cells Not Reportable 12/25/19 03:47 Toxic Granulation Not Reportable 12/25/19 03:47 Toxic Vacuolation Not Reportable 12/25/19 03:47 Dohle Bodies Not Reportable 12/25/19 03:47 Pelger-Huet Anomaly Not Reportable 12/25/19 03:47 Dominique Rods Not Reportable 12/25/19 03:47 Platelet Estimate Consistent w auto 12/25/19 03:47 Clumped Platelets Not Reportable 12/25/19 03:47 Plt Clumps, EDTA Not Reportable 12/25/19 03:47 Large Platelets Not Reportable 12/25/19 03:47 Giant Platelets Not Reportable 12/25/19 03:47 Platelet Satelliting Not Reportable 12/25/19 03:47 Plt Morphology Comment Not Reportable 12/25/19 03:47 RBC Morphology Not Reportable 12/25/19 03:47 Dimorphic RBCs Not Reportable 12/25/19 03:47 Polychromasia Not Reportable 12/25/19 03:47 Hypochromasia Not Reportable 12/25/19 03:47 Poikilocytosis Not Reportable 12/25/19 03:47 Anisocytosis 1+ 12/25/19 03:47 Microcytosis Not Reportable 12/25/19 03:47 Macrocytosis Not Reportable 12/25/19 03:47 Spherocytes Not Reportable 12/25/19 03:47 Pappenheimer Bodies Not Reportable 12/25/19 03:47 Sickle Cells Not Reportable 12/25/19 03:47 Target Cells Not Reportable 12/25/19 03:47 Tear Drop Cells Not Reportable 12/25/19 03:47 Ovalocytes Not Reportable 12/25/19 03:47 Helmet Cells Not Reportable 12/25/19 03:47 [place] Bodies Not Reportable 12/25/19 03:47 [place] Rings Not Reportable 12/25/19 03:47 [place] Cells Not Reportable 12/25/19 03:47 Bite Cells Not Reportable 12/25/19 03:47 Crenated Cell Not Reportable 12/25/19 03:47 Elliptocytes Not Reportable 12/25/19 03:47 Acanthocytes (Spur) Not Reportable 12/25/19 03:47 Rouleaux Not Reportable 12/25/19 03:47 Hemoglobin C Crystals Not Reportable 12/25/19 03:47 Schistocytes Not Reportable 12/25/19 03:47 Malaria parasites Not Reportable 12/25/19 03:47 Gregg Bodies Not Reportable 12/25/19 03:47 Hem Pathologist Commnt No 12/25/19 03:47 PT 17.0 Sec. (12.2-14.9) H 11/23/19 03:47 INR 1.36 (0.87-1.13) H 11/23/19 03:47 APTT 128.2 Sec. (24.2-36.6) H* 11/23/19 03:47 Heparin Anti-Xa Level 0.31 U.I./ml (0.3-0.7) 11/23/19 09:03 ABG pH 7.429 pH Units (7.350-7.450) 01/09/20 08:51 ABG pCO2 39.1 mm Hg 01/09/20 08:51 ABG pO2 94.3 mm Hg (80.0-90.0) H 01/09/20 08:51 ABG HCO3 25.3 mmol/L (20.0-26.0) 01/09/20 08:51 ABG O2 Saturation 97.4 % (95.0-99.0) 01/09/20 08:51 ABG O2 Content 12.9 (0.0-44) 01/09/20 08:51 ABG Base Excess 1.0 mmol/L (-2.0-3.0) 01/09/20 08:51 ABG Hemoglobin 9.5 gm/dl (12.0-16.0) L 01/09/20 08:51 ABG Carboxyhemoglobin 1.3 % (0.0-5.0) 01/09/20 08:51 ABG Methemoglobin 0.4 % (0.0-1.5) 01/09/20 08:51 Oxyhemoglobin 95.7 % (95.0-99.0) 01/09/20 08:51 FiO2 35 % 01/09/20 08:51 Sodium 137 mmol/L (137-145) 02/17/20 07:57 Potassium 4.7 mmol/L (3.6-5.0) 02/17/20 07:57 Chloride 96.9 mmol/L (98-107) L 02/17/20 07:57 Carbon Dioxide 25 mmol/L (22-30) 02/17/20 07:57 Anion Gap 20 mmol/L 02/17/20 07:57 BUN 21 mg/dL (7-17) H 02/17/20 07:57 Creatinine 0.4 mg/dL (0.7-1.2) L 02/17/20 07:57 Estimated GFR > 60 ml/min 02/17/20 07:57 BUN/Creatinine Ratio 53 % 02/17/20 07:57 Glucose 113 mg/dL (65-100) H 02/17/20 07:57 POC Glucose 91 (70-105) 02/18/20 06:14 Lactic Acid 1.80 mmol/L (0.7-2.0) 11/25/19 05:05 Calcium 10.5 mg/dL (8.4-10.2) H 02/17/20 07:57 Ionized Calcium 4.5 mg/dL (4.8-5.6) L 11/23/19 06:32 Phosphorus 4.20 mg/dL (2.5-4.5) D 11/28/19 08:59 Magnesium 2.30 mg/dL (1.7-2.3) 11/29/19 13:41 Total Bilirubin 0.40 mg/dL (0.1-1.2) 12/13/19 07:48 AST 27 units/L (5-40) 12/13/19 07:48 ALT 26 units/L (7-56) 12/13/19 07:48 Alkaline Phosphatase 316 units/L (35-129) H 12/13/19 07:48 Ammonia 42.0 umol/L (25-60) 11/29/19 13:41 Total Creatine Kinase 139 units/L (30-135) H 11/22/19 23:27 CK-MB (CK-2) 8.3 ng/mL (0.0-4.0) H 11/22/19 23:27 CK-MB (CK-2) Rel Index 5.9 (0-4) H 11/22/19 23:27 Troponin T < 0.010 ng/mL (0.00-0.029) 11/22/19 23:27 Total Protein 6.8 g/dL (6.3-8.2) 12/13/19 07:48 Albumin 2.4 g/dL (3.9-5) L 12/13/19 07:48 Albumin/Globulin Ratio 0.5 % 12/13/19 07:48 Lipase 18 units/L (13-60) 11/23/19 00:34 Procalcitonin 1.09 ng/mL (<0.15) 11/23/19 04:53 TSH 1.010 mlU/mL (0.270-4.200) 02/12/20 07:36 Free T4 1.08 ng/dL (0.76-1.46) 02/12/20 07:36 Urine Color Yellow (Yellow) 12/16/19 Unknown Urine Turbidity Slightly-cloudy (Clear) 12/16/19 Unknown Urine pH 5.0 (5.0-7.0) 12/16/19 Unknown Ur Specific [place] 1.018 (1.003-1.030) 12/16/19 Unknown Urine Protein 30 mg/dl mg/dL (Negative) 12/16/19 Unknown Urine Glucose (UA) Neg mg/dL (Negative) 12/16/19 Unknown Urine Ketones Neg mg/dL (Negative) 12/16/19 Unknown Urine Blood Sm (Negative) 12/16/19 Unknown Urine Nitrite Neg (Negative) 12/16/19 Unknown Urine Bilirubin Neg (Negative) 12/16/19 Unknown Urine Urobilinogen < 2.0 mg/dL (<2.0) 12/16/19 Unknown Ur Leukocyte Esterase Neg (Negative) 12/16/19 Unknown Urine WBC (Auto) 6.0 /HPF (0.0-6.0) 12/16/19 Unknown Urine RBC (Auto) 9.0 /HPF (0.0-6.0) 12/16/19 Unknown U Epithel Cells (Auto) < 1.0 /HPF (0-13.0) 12/16/19 Unknown Urine Bacteria (Auto) 2+ /HPF (Negative) 11/22/19 23:17 Hyaline Casts 3 /LPF 12/16/19 Unknown Granular Casts 3 /LPF 12/16/19 Unknown Urine Mucus Few /HPF 12/16/19 Unknown Vancomycin Trough 33.8 ug/mL (5.0-20.0) H 12/21/19 08:56 Random Vancomycin 16.2 ug/mL (0-40.0) 12/24/19 04:31 Salicylates < 0.3 mg/dL (2.8-20.0) L 11/22/19 23:27 Urine Opiates Screen Presumptive negative 11/22/19 23:17 Urine Methadone Screen Presumptive negative 11/22/19 23:17 Acetaminophen < 5.0 ug/mL (10.0-30.0) L 11/22/19 23:27 Ur Barbiturates Screen Presumptive negative 11/22/19 23:17 Ur Phencyclidine Scrn Presumptive negative 11/22/19 23:17 Ur Amphetamines Screen Presumptive negative 11/22/19 23:17 U Benzodiazepines Scrn Presumptive negative 11/22/19 23:17 Urine Cocaine Screen Presumptive negative 11/22/19 23:17 U Marijuana (THC) Screen Presumptive negative 11/22/19 23:17 Drugs of Abuse Note Disclamer 11/22/19 23:17 Plasma/Serum Alcohol 0.08 % (0-0.07) H 11/22/19 23:27 Coronavirus (PCR) Negative (Negative) 02/05/20 07:50 Hepatitis A IgM Ab Non-reactive (NonReactive) 11/23/19 01:19 Hep Bs Antigen Non-reactive (Negative) 11/23/19 01:19 Hep B Core IgM Ab Non-reactive (NonReactive) 11/23/19 01:19 Hepatitis C Antibody Non-reactive (NonReactive) 11/23/19 01:19 Blood Type O POSITIVE 12/21/19 14:54 Antibody Screen Negative 12/21/19 14:54 Crossmatch See Detail 12/21/19 14:54 Microbiology: Microbiology 02/17/20 15:20 Tracheal Aspirate Sputum Culture - Preliminary - Diagnostic Impressions Diagnostic Impressions: Echocardiogram 11/23/19 03:58 Transthoracic Echocardiogram Indication: Cardiac arrest BP: 131/89 HR: 115 Conclusions *The study quality is technically difficult. *Global left ventricular wall motion and contractility are within normal limits. *The estimated ejection fraction is 55-60%. *Abnormal left ventricular diastolic filling is observed, consistent with impaired relaxation. *There is no pericardial effusion. Findings Procedure Info: The study quality is technically difficult. The study was technically limited due to the patient's inability to lay in the left lateral decubitus position. Left Ventricle: The left ventricular chamber size is normal. There is no left ventricular hypertrophy. Global left ventricular wall motion and contractility are within normal limits. Global left ventricular systolic function is normal. The estimated ejection fraction is 55-60%. Abnormal left ventricular diastolic filling is observed, consistent with impaired relaxation. Left Atrium: The left atrial chamber size is normal. Aortic Valve: The aortic valve leaflets are mildly thickened. Mitral Valve: The mitral valve leaflets are mildly thickened. There is no evidence of mitral regurgitation. Tricuspid Valve: The tricuspid valve leaflets are normal. There is trace tricuspid regurgitation. The right ventricular systolic pressure is calculated at 33 mmHg. Pulmonic Valve: The pulmonic valve appears normal. Pericardium: The pericardium appears normal. There is no pericardial effusion. Aorta: The aorta appears normal. Venous: The inferior vena cava appears normal in size. Measurements Chambers 2D Name Value Normal Range IVSd (2D) 0.94 cm (0.6 - 1.1) LVPWd (2D) 0.81 cm (0.6 - 1.1) LVIDd (2D) 3.6 cm (3.7 - 5.6) LVIDs (2D) 2.27 cm (2 - 3.8) LV FS (2D) 36.93 % - EF Teichholz (2D) 67.76 % - Ao root diameter (2D) 3.03 cm (2 - 3.7) Volumes/Mass Name Value Normal Range LA ESV SP 4CH (A/L) 16.89 ml - LA ESV SP 4CH (MOD) 15.52 ml - Diastolic/Systolic Function Name Value Normal Range MV E-wave Vmax 0.55 m/sec - MV deceleration time 200.89 msec - MV A-wave Vmax 0.68 m/sec - MV E:A ratio 0.82 ratio - Aortic Valve Name Value Normal Range AV Vmax 1.1 m/sec - AV VTI 15.9 cm - AV peak gradient 4.86 mmHg - AV mean gradient 2.59 mmHg - LVOT diameter 2 cm - LVOT Vmax 1.03 m/sec - LVOT VTI 15.87 cm - LVOT peak gradient 4.24 mmHg - LVOT mean gradient 2.41 mmHg - SV LVOT 49.77 ml - JOSÉ MIGUEL (continuity Vmax) 2.93 cm2 - JOSÉ MIGUEL (continuity VTI) 3.13 cm2 - Tricuspid Valve Name Value Normal Range TR Vmax 2.74 m/sec - TR peak gradient 303 mmHg - RAP 3 mmHg - RVSP 33 mmHg - IVC diameter 1.77 cm (1.2 - 2.3) Pulmonic Valve/Qp:Qs Name Value Normal Range PV Vmax 0.77 m/sec - PV peak gradient 2.4 mmHg - PV acceleration time 114.18 msec - Echocardiogram Limited Views 12/17/19 14:53 Transthoracic Echocardiogram Indication: R/O Vegetations BP: 144/83 HR: 133 Conclusions *Global left ventricular systolic function is mildly decreased. *The estimated ejection fraction is 45-50%. *A trivial pericardial effusion is visualized. Findings Left Ventricle: The left ventricular chamber size is normal. Global left ventricular systolic function is mildly decreased. The estimated ejection fraction is 45-50%. Left Atrium: The left atrial chamber size is normal. Right Ventricle: The right ventricular cavity size is normal. Right Atrium: The right atrial cavity size is normal. Aortic Valve: The aortic valve is not well visualized. There is no evidence of aortic regurgitation. Mitral Valve: The mitral valve leaflets are mildly thickened. There is trace of mitral regurgitation. Tricuspid Valve: The tricuspid valve leaflets are mildly thickened. There is trace tricuspid regurgitation. The right ventricular systolic pressure is calculated at 29 mmHg. Pulmonic Valve: The pulmonic valve is not well visualized. There is no evidence of pulmonic regurgitation. Pericardium: A trivial pericardial effusion is visualized. Aorta: There is no dilatation of the ascending aorta. There is no dilatation of the aortic root. Venous: The inferior vena cava appears normal in size. There is a greater than 50% respiratory change in the inferior vena cava dimension. Measurements Chambers 2D Name Value Normal Range IVSd (2D) 0.83 cm (0.6 - 1.1) LVPWd (2D) 0.98 cm (0.6 - 1.1) LVIDd (2D) 3.71 cm (3.7 - 5.6) LVIDs (2D) 2.93 cm (2 - 3.8) LV FS (2D) 21.12 % - EF Teichholz (2D) 43.71 % - Ao root diameter (2D) 3.02 cm (2 - 3.7) Volumes/Mass Name Value Normal Range LA ESV SP 4CH (A/L) 36.8 ml - LA ESV SP 2CH (A/L) 45.89 ml - LA ESV BP (A/L) 42.35 ml - LA ESV BP (A/L) index 26.63 ml/m2 - LA ESV SP 4CH (MOD) 34.42 ml - LA ESV SP 2CH (MOD) 44.21 ml - LA ESV BP (MOD) 39.82 ml - LA ESV BP (MOD) index 25.05 ml/m2 - Aortic Valve Name Value Normal Range LVOT diameter 1.63 cm - Tricuspid Valve Name Value Normal Range TR Vmax 2.56 m/sec - TR peak gradient 26 mmHg - RAP 3 mmHg - RVSP 29 mmHg - IVC diameter 1.83 cm (1.2 - 2.3) [place]/IV: Voiding Method Incontinent IV Catheter Type [Forearm] Peripheral IV IV Catheter Type [Left Forearm INT / Saline Lock ] IV Catheter Type [Right Peripheral IV Antecubital] IV Catheter Type [Right Hand] Peripheral IV IV Catheter Type [Right Wrist] Peripheral IV IV Catheter Type [Left Wrist] Peripheral IV IV Catheter Type [Left Peripheral IV Antecubital] IV Catheter Type [Right INT / Saline Lock Forearm] IV Catheter Type [Left Hand] Peripheral IV Active Medications - Current Medications Current Medications: Generic Name Dose Route Start Last Admin Trade Name Freq PRN Reason Stop Dose Admin Acetaminophen 650 mg 12/06/19 10:25 02/17/20 22:05 Tylenol FEEDTUBE 650 mg Q6H PRN Administration TEMP >/=100.3 Acetylcysteine 200 mg 02/16/20 20:00 02/18/20 07:48 Mucomyst Inhalation INHALATION 200 mg Q12HRT LUCHO Administration Lipase/Protease/Amylase 1 each 11/23/19 11:[address] 10,500 Unit FEEDTUBE PRN PRN Use w/ sod bicarb for FT Bisacodyl 10 mg 02/06/20 13:57 Dulcolax AL QDAY PRN Constipation unrelieved by MOM Docusate Sodium 100 mg 02/06/20 22:00 02/18/20 10:00 Colace PO 100 mg BID LUCHO Administration Glycopyrrolate 2 mg 12/31/19 20:00 02/17/20 22:05 Robinul PO 2 mg TID LUCHO Administration Hydralazine HCl 10 mg 11/24/19 00:45 12/18/19 13:25 Apresoline IV 10 mg Q6H PRN Administration SBP > 160 Hydroxyzine Pamoate 25 mg 12/06/19 10:00 02/18/20 10:13 Vistaril PO 25 mg BID LUCHO Administration Lansoprazole 30 mg 11/27/19 10:00 02/18/20 10:01 Prevacid Solutab FEEDTUBE 30 mg QDAY LUCHO Administration Levalbuterol HCl 0.63 mg 02/17/20 00:00 02/18/20 07:48 Xopenex IH 0.63 mg Q8HRT LUCHO Administration Levetiracetam 500 mg 11/29/19 10:00 02/18/20 10:00 Keppra PO 500 mg BID LUCHO Administration Mirtazapine 30 mg 12/06/19 10:00 02/18/20 10:01 Remeron PO 30 mg DAILY LUCHO Administration Nicotine 21 mg 02/16/20 13:00 02/18/20 10:12 Habitrol TD 21 mg QDAY LUCHO Administration Ondansetron HCl 4 mg 12/10/19 07:53 02/05/20 22:06 Zofran IV 4 mg Q4H PRN Administration Nausea And Vomiting Polyethylene Glycol 17 gm 02/06/20 13:57 Miralax 3350 PO QDAY PRN Constipation Quetiapine Fumarate 100 mg 01/09/20 21:41 02/17/20 22:05 Seroquel FEEDTUBE 100 mg QHS LUCHO Administration Scopolamine 1 each 02/08/20 15:00 02/17/20 15:02 Transderm-Scop TD Not Given Q3D LUCHO Sertraline HCl 25 mg 01/01/20 10:00 02/18/20 10:00 Zoloft PO 25 mg QDAY LUCHO Administration Simple Syrup 15 ml 11/23/19 11:50 Simple Syrup FEEDTUBE PRN PRN Hypoglycemia BG<70 Simple Syrup 30 ml 11/23/19 11:50 Simple Syrup FEEDTUBE PRN PRN Hypoglycemia Sodium Bicarbonate 325 mg 11/23/19 11:50 Sodium Bicarbonate FEEDTUBE PRN PRN For Clogged Feeding Tube Nutrition/Malnutrition Assess - Dietary Evaluation Nutrition/Malnutrition Findings: Nutrition Notes Start: 11/23/19 11:29 Freq: Status: Active Protocol: Document 02/14/20 14:45 LM (Rec: 02/14/20 14:48 LM [email or web address]) Nutrition Notes Initial or Follow up Reassessment Current Diagnosis Hypertension Other Pertinent Diagnosis Cardaic arrest, ETOH dependence, UTI Current Diet Jevity 1.2 at 60ml/hr Labs/Tests Reviewed Pertinent Medications Reviewed Height 5 ft 6 in Weight 49.2 kg [place] Body Weight (kg) 59.09 BMI 17.5 Subjective/Other Information TF running at 60ml/hr and toleratting TF per RN. Percent of energy/protein needs met: 95%/100% Burn Absent Trauma Absent GI Symptoms None Current % PO Negligible Interpretation of Weight Loss (severe) >2% in 1 week Muscle Mass Mild Depletion (non-severe) #2 Nutrition Diagnosis Malnutrition Diagnosis Progress(for reassessment Continues documentation) #1 Nutrition Diagnosis Inadequate oral intake Diagnosis Progress(for reassessment Continues documentation) Is patient on ventilator? No Is Patient Ambulatory and/or Out of Bed No REE-([facility]-confined to bed) 1335.096 Kcal/Kg value to use for calculation 37 Approximate Energy Requirements Using 1820 kcal/Kg Calculation Used for Recommendations Kcal/kg Additional Notes Protein: 60-75g (1.2-1.5g/kg) Fluid: 1 ml/kcal Nutrition Intervention Change Diet Order: Continue TF Nutrition Support: Change to Jevity 1.2 at 60ml/ hr Flush 100ml q4h Kcal 1,728 Protein (gm) 80 Fluid (mL) 1,162 Goal #1 TF tolerance Goal #2 Meet at least 80% of energy and protein needs via TF Anticipated Discharge Needs: TF Follow-Up By: 02/20/20 Additional Comments F/U for TF tolerance, wt
--- NOTE | 2020-02-18 13:04 | Progress Note ---
Assessment and Plan Patient awake. Confused and agitated. Patient S/P trach. Pacey Muier valve is placed. O2 saturation 97% on room air. No acute respiratory distress. Wound around trach tube. Recommend cleaning and tracheostomy care. Patient afebrile and has mild leukocytosis. - Patient Problems (1) Acute respiratory failure Current Visit: Yes Status: Acute Qualifiers: Respiratory failure complication: hypoxia Qualified Code(s): J96.01 - Acute respiratory failure with hypoxia Plan to address problem: S?P Tracheostomy. Presently on room air. O2 saturation 97%. Recommend albuterol/atrovent aerosol treatments q 6 hours. Continue Mucomist. Respiratory suctioning. Trach care. Mobility protocol. (2) Alcohol abuse Current Visit: Yes Status: Acute Plan to address problem: Management as per primary care. B/P 123/75, Pulse 110. (3) Cardiac arrest with successful resuscitation Current Visit: Yes Status: Acute Plan to address problem: Patient successfully resucitated. Alert, awake (4) Increased ammonia level Current Visit: Yes Status: Acute Plan to address problem: Management as per primary care. (5) Seizure disorder Current Visit: Yes Status: Acute Plan to address problem: Management as per primary care and neurology. (6) HTN (hypertension) Current Visit: No Status: Acute Plan to address problem: Management as per primary care. Subjective Date of service: 02/18/20 Principal diagnosis: Ac cardiopulmonary arrest; Ac hypoxemic resp failure; Acute encephalopathy Interval history: Patient awake. Confused and agitated. Patient S/P trach. Pacey Muier valve is placed. O2 saturation 97% on room air. No acute respiratory distress. Wound around trach tube. Recommend cleaning and tracheostomy care. Patient afebrile and has mild leukocytosis. Objective Vital Signs - 12hr 02/18/20 02/18/20 02/18/20 03:49 05:35 07:32 Temperature 97.6 F 98.8 F Pulse Rate 130 H 91 H Respiratory 20 22 Rate Blood Pressure 124/83 123/75 Blood Pressure [Left] O2 Sat by Pulse 100 Oximetry 02/18/20 07:34 Temperature 98.8 F Pulse Rate 110 H Respiratory 22 Rate Blood Pressure Blood Pressure 123/75 [Left] O2 Sat by Pulse 97 Oximetry Constitutional: alert, agitated, appears uncomfortable, other (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, with midline tracheostomy and with normal respiratory effort at rest) Eyes: non-icteric ENT: oropharynx moist, other (s/p trach) Neck: supple, no lymphadenopathy, no JVD Effort: normal Ascultation: Bilateral: diminished breath sounds, rhonchi Percussion: Bilateral: not dull Cardiovascular: regular rate and rhythm (tachycardia), other (S1,S2) Gastrointestinal: normoactive bowel sounds, soft, non-tender, non-distended Integumentary: normal Extremities: no cyanosis, no edema, pulses normal, no ischemia or petechiae Neurologic: non-focal exam, pupils equal and round, unable to assess Psychiatric: anxious, other (Agitated.) CBC and BMP: 02/17/20 07:57 02/17/20 07:57 ABG, PT/INR, D-dimer: ABG ABG pH 7.429 pH Units (7.350-7.450) 01/09/20 08:51 ABG pCO2 39.1 mm Hg 01/09/20 08:51 ABG pO2 94.3 mm Hg (80.0-90.0) H 01/09/20 08:51 ABG O2 Saturation 97.4 % (95.0-99.0) 01/09/20 08:51 PT/INR, D-dimer PT 17.0 Sec. (12.2-14.9) H 11/23/19 03:47 INR 1.36 (0.87-1.13) H 11/23/19 03:47 Abnormal lab findings: Abnormal Labs 11/22/19 11/22/19 11/22/19 23:17 23:18 23:27 WBC 21.2 H RBC 3.59 L Hgb 9.8 L Hct MCH 27 L RDW 18.6 H Plt Count 454 H Lymph % (Auto) [place] % (Auto) [place] # Baso # Seg Neutrophils % Seg Neuts % (Manual) 86.0 H Lymphocytes % (Manual) 9.0 L Monocytes % (Manual) Seg Neutrophils # Seg Neutrophils # Man 18.2 H Lymphocytes # (Manual) Monocytes # (Manual) 1.1 H Eosinophils # (Manual) Basophils # (Manual) PT INR APTT ABG pH ABG pO2 ABG HCO3 ABG O2 Saturation ABG Base Excess ABG Hemoglobin Oxyhemoglobin Sodium Potassium Chloride Carbon Dioxide BUN Creatinine Glucose POC Glucose 53 L Lactic Acid Calcium Ionized Calcium Phosphorus Magnesium Total Bilirubin AST ALT Alkaline Phosphatase Ammonia Total Creatine Kinase CK-MB (CK-2) CK-MB (CK-2) Rel Index Total Protein Albumin Urine WBC (Auto) 40.0 H Vancomycin Trough Salicylates Acetaminophen Plasma/Serum Alcohol Crossmatch 11/22/19 11/22/19 11/22/19 23:27 23:27 23:27 WBC RBC Hgb Hct MCH RDW Plt Count Lymph % (Auto) [place] % (Auto) [place] # Baso # Seg Neutrophils % Seg Neuts % (Manual) Lymphocytes % (Manual) Monocytes % (Manual) Seg Neutrophils # Seg Neutrophils # Man Lymphocytes # (Manual) Monocytes # (Manual) Eosinophils # (Manual) Basophils # (Manual) PT INR APTT ABG pH ABG pO2 ABG HCO3 ABG O2 Saturation ABG Base Excess ABG Hemoglobin Oxyhemoglobin Sodium Potassium 2.4 L* Chloride 85.1 L Carbon Dioxide 19 L BUN Creatinine 0.5 L Glucose 261 H POC Glucose Lactic Acid Calcium Ionized Calcium Phosphorus Magnesium Total Bilirubin AST 609 H ALT 152 H Alkaline Phosphatase 160 H Ammonia 117.0 H Total Creatine Kinase 139 H CK-MB (CK-2) 8.3 H CK-MB (CK-2) Rel Index 5.9 H Total Protein Albumin 3.6 L Urine WBC (Auto) Vancomycin Trough Salicylates < 0.3 L Acetaminophen Plasma/Serum Alcohol Crossmatch 11/22/19 11/22/19 11/23/19 23:27 23:27 01:10 WBC RBC Hgb Hct MCH RDW Plt Count Lymph % (Auto) [place] % (Auto) [place] # Baso # Seg Neutrophils % Seg Neuts % (Manual) Lymphocytes % (Manual) Monocytes % (Manual) Seg Neutrophils # Seg Neutrophils # Man Lymphocytes # (Manual) Monocytes # (Manual) Eosinophils # (Manual) Basophils # (Manual) PT INR APTT ABG pH 7.273 L ABG pO2 209.7 H ABG HCO3 ABG O2 Saturation 99.2 H ABG Base Excess -3.9 L ABG Hemoglobin 10.6 L Oxyhemoglobin 93.9 L Sodium Potassium Chloride Carbon Dioxide BUN Creatinine Glucose POC Glucose Lactic Acid Calcium Ionized Calcium Phosphorus Magnesium Total Bilirubin AST ALT Alkaline Phosphatase Ammonia Total Creatine Kinase CK-MB (CK-2) CK-MB (CK-2) Rel Index Total Protein Albumin Urine WBC (Auto) Vancomycin Trough Salicylates Acetaminophen < 5.0 L Plasma/Serum Alcohol 0.08 H Crossmatch 11/23/19 11/23/19 11/23/19 01:19 01:19 03:47 WBC RBC Hgb Hct MCH RDW Plt Count Lymph % (Auto) [place] % (Auto) [place] # Baso # Seg Neutrophils % Seg Neuts % (Manual) Lymphocytes % (Manual) Monocytes % (Manual) Seg Neutrophils # Seg Neutrophils # Man Lymphocytes # (Manual) Monocytes # (Manual) Eosinophils # (Manual) Basophils # (Manual) PT 16.3 H INR 1.29 H APTT ABG pH ABG pO2 ABG HCO3 ABG O2 Saturation ABG Base Excess ABG Hemoglobin Oxyhemoglobin Sodium Potassium Chloride Carbon Dioxide BUN Creatinine Glucose POC Glucose Lactic Acid 2.10 H* 5.00 H* Calcium Ionized Calcium Phosphorus Magnesium Total Bilirubin AST ALT Alkaline Phosphatase Ammonia Total Creatine Kinase CK-MB (CK-2) CK-MB (CK-2) Rel Index Total Protein Albumin Urine WBC (Auto) Vancomycin Trough Salicylates Acetaminophen Plasma/Serum Alcohol Crossmatch 11/23/19 11/23/19 11/23/19 03:47 03:47 04:53 WBC RBC Hgb 9.4 L Hct MCH RDW Plt Count Lymph % (Auto) [place] % (Auto) [place] # Baso # Seg Neutrophils % Seg Neuts % (Manual) Lymphocytes % (Manual) Monocytes % (Manual) Seg Neutrophils # Seg Neutrophils # Man Lymphocytes # (Manual) Monocytes # (Manual) Eosinophils # (Manual) Basophils # (Manual) PT 17.0 H INR 1.36 H APTT 128.2 H* ABG pH ABG pO2 ABG HCO3 ABG O2 Saturation ABG Base Excess ABG Hemoglobin Oxyhemoglobin Sodium Potassium Chloride Carbon Dioxide 18 L BUN Creatinine 0.5 L Glucose 105 H POC Glucose Lactic Acid Calcium 8.3 L Ionized Calcium Phosphorus 2.40 L Magnesium Total Bilirubin 1.30 H AST 761 H ALT 158 H Alkaline Phosphatase 143 H Ammonia Total Creatine Kinase CK-MB (CK-2) CK-MB (CK-2) Rel Index Total Protein Albumin 2.8 L Urine WBC (Auto) Vancomycin Trough Salicylates Acetaminophen Plasma/Serum Alcohol Crossmatch 11/23/19 11/23/19 11/23/19 05:12 06:32 06:32 WBC 16.8 H RBC 3.31 L Hgb 8.9 L Hct 28.7 L MCH 27 L RDW 18.6 H Plt Count Lymph % (Auto) [place] % (Auto) [place] # Baso # Seg Neutrophils % Seg Neuts % (Manual) 94.0 H Lymphocytes % (Manual) 1.0 L Monocytes % (Manual) Seg Neutrophils # Seg Neutrophils # Man 15.8 H Lymphocytes # (Manual) 0.2 L Monocytes # (Manual) Eosinophils # (Manual) Basophils # (Manual) PT INR APTT ABG pH ABG pO2 ABG HCO3 ABG O2 Saturation ABG Base Excess -3.2 L ABG Hemoglobin 9.0 L Oxyhemoglobin 93.6 L Sodium Potassium Chloride Carbon Dioxide BUN Creatinine Glucose POC Glucose Lactic Acid Calcium Ionized Calcium 4.5 L Phosphorus Magnesium Total Bilirubin AST ALT Alkaline Phosphatase Ammonia Total Creatine Kinase CK-MB (CK-2) CK-MB (CK-2) Rel Index Total Protein Albumin Urine WBC (Auto) Vancomycin Trough Salicylates Acetaminophen Plasma/Serum Alcohol Crossmatch 11/23/19 11/24/19 11/24/19 06:32 04:35 04:35 WBC RBC Hgb Hct MCH RDW Plt Count Lymph % (Auto) [place] % (Auto) [place] # Baso # Seg Neutrophils % Seg Neuts % (Manual) Lymphocytes % (Manual) Monocytes % (Manual) Seg Neutrophils # Seg Neutrophils # Man Lymphocytes # (Manual) Monocytes # (Manual) Eosinophils # (Manual) Basophils # (Manual) PT INR APTT ABG pH ABG pO2 ABG HCO3 ABG O2 Saturation ABG Base Excess ABG Hemoglobin Oxyhemoglobin Sodium Potassium Chloride Carbon Dioxide BUN Creatinine Glucose POC Glucose Lactic Acid 3.30 H* Calcium Ionized Calcium Phosphorus Magnesium 1.40 L Total Bilirubin AST ALT Alkaline Phosphatase Ammonia 98.0 H Total Creatine Kinase CK-MB (CK-2) CK-MB (CK-2) Rel Index Total Protein Albumin Urine WBC (Auto) Vancomycin Trough Salicylates Acetaminophen Plasma/Serum Alcohol Crossmatch 11/24/19 11/25/19 11/25/19 05:22 04:34 05:05 WBC 17.3 H RBC 2.88 L Hgb 7.8 L Hct 24.6 L MCH 27 L RDW 18.5 H Plt Count Lymph % (Auto) 7.7 L [place] % (Auto) 9.7 H [place] # 1.7 H Baso # Seg Neutrophils % 82.2 H Seg Neuts % (Manual) Lymphocytes % (Manual) Monocytes % (Manual) Seg Neutrophils # 14.2 H Seg Neutrophils # Man Lymphocytes # (Manual) Monocytes # (Manual) Eosinophils # (Manual) Basophils # (Manual) PT INR APTT ABG pH 7.475 H ABG pO2 ABG HCO3 29.4 H 32.3 H ABG O2 Saturation ABG Base Excess 5.4 H 6.9 H ABG Hemoglobin 9.0 L 10.6 L Oxyhemoglobin 94.3 L Sodium Potassium Chloride Carbon Dioxide BUN Creatinine Glucose POC Glucose Lactic Acid Calcium Ionized Calcium Phosphorus Magnesium Total Bilirubin AST ALT Alkaline Phosphatase Ammonia Total Creatine Kinase CK-MB (CK-2) CK-MB (CK-2) Rel Index Total Protein Albumin Urine WBC (Auto) Vancomycin Trough Salicylates Acetaminophen Plasma/Serum Alcohol Crossmatch 11/25/19 11/25/19 11/26/19 05:05 22:46 03:31 WBC RBC Hgb Hct MCH RDW Plt Count Lymph % (Auto) [place] % (Auto) [place] # Baso # Seg Neutrophils % Seg Neuts % (Manual) Lymphocytes % (Manual) Monocytes % (Manual) Seg Neutrophils # Seg Neutrophils # Man Lymphocytes # (Manual) Monocytes # (Manual) Eosinophils # (Manual) Basophils # (Manual) PT INR APTT ABG pH 7.459 H ABG pO2 ABG HCO3 34.2 H ABG O2 Saturation ABG Base Excess 9.4 H ABG Hemoglobin 7.6 L Oxyhemoglobin 94.8 L Sodium 152 H D 147 H Potassium 2.3 L* D 2.8 L* D Chloride 107.8 H Carbon Dioxide 31 H D 33 H BUN Creatinine 0.6 L 0.6 L Glucose 148 H 177 H POC Glucose Lactic Acid Calcium Ionized Calcium Phosphorus Magnesium Total Bilirubin AST 105 H ALT 71 H Alkaline Phosphatase 155 H Ammonia Total Creatine Kinase CK-MB (CK-2) CK-MB (CK-2) Rel Index Total Protein 5.2 L D Albumin 2.9 L Urine WBC (Auto) Vancomycin Trough Salicylates Acetaminophen Plasma/Serum Alcohol Crossmatch 11/26/19 11/26/19 11/27/19 08:24 08:24 04:20 WBC 12.0 H RBC 3.00 L Hgb 8.0 L 9.3 L Hct 25.9 L 29.7 L MCH 27 L RDW 18.5 H Plt Count Lymph % (Auto) [place] % (Auto) [place] # Baso # Seg Neutrophils % Seg Neuts % (Manual) 89.0 H Lymphocytes % (Manual) 4.0 L Monocytes % (Manual) Seg Neutrophils # Seg Neutrophils # Man 10.7 H Lymphocytes # (Manual) 0.5 L Monocytes # (Manual) Eosinophils # (Manual) Basophils # (Manual) PT INR APTT ABG pH ABG pO2 ABG HCO3 ABG O2 Saturation ABG Base Excess ABG Hemoglobin Oxyhemoglobin Sodium 146 H Potassium 3.4 L D Chloride Carbon Dioxide BUN Creatinine 0.5 L Glucose 165 H POC Glucose Lactic Acid Calcium Ionized Calcium Phosphorus Magnesium Total Bilirubin AST 57 H ALT Alkaline Phosphatase 166 H Ammonia Total Creatine Kinase CK-MB (CK-2) CK-MB (CK-2) Rel Index Total Protein Albumin 2.9 L Urine WBC (Auto) Vancomycin Trough Salicylates Acetaminophen Plasma/Serum Alcohol Crossmatch 11/27/19 11/27/19 11/27/19 04:28 04:28 04:42 WBC RBC Hgb Hct MCH RDW Plt Count Lymph % (Auto) [place] % (Auto) [place] # Baso # Seg Neutrophils % Seg Neuts % (Manual) Lymphocytes % (Manual) Monocytes % (Manual) Seg Neutrophils # Seg Neutrophils # Man Lymphocytes # (Manual) Monocytes # (Manual) Eosinophils # (Manual) Basophils # (Manual) PT INR APTT ABG pH 7.470 H ABG pO2 74.0 L ABG HCO3 33.8 H ABG O2 Saturation ABG Base Excess 9.1 H ABG Hemoglobin 8.7 L Oxyhemoglobin 94.7 L Sodium 146 H Potassium 2.9 L* Chloride Carbon Dioxide BUN 25 H Creatinine Glucose 213 H POC Glucose Lactic Acid Calcium Ionized Calcium Phosphorus 1.00 L Magnesium Total Bilirubin AST ALT Alkaline Phosphatase Ammonia Total Creatine Kinase CK-MB (CK-2) CK-MB (CK-2) Rel Index Total Protein Albumin Urine WBC (Auto) Vancomycin Trough Salicylates Acetaminophen Plasma/Serum Alcohol Crossmatch 11/27/19 11/27/19 11/27/19 05:37 12:20 15:46 WBC RBC Hgb Hct MCH RDW Plt Count Lymph % (Auto) [place] % (Auto) [place] # Baso # Seg Neutrophils % Seg Neuts % (Manual) Lymphocytes % (Manual) Monocytes % (Manual) Seg Neutrophils # Seg Neutrophils # Man Lymphocytes # (Manual) Monocytes # (Manual) Eosinophils # (Manual) Basophils # (Manual) PT INR APTT ABG pH ABG pO2 ABG HCO3 ABG O2 Saturation ABG Base Excess ABG Hemoglobin Oxyhemoglobin Sodium 146 H Potassium 3.5 L D Chloride Carbon Dioxide BUN 24 H Creatinine 0.6 L Glucose 187 H POC Glucose 117 H 220 H Lactic Acid Calcium Ionized Calcium Phosphorus Magnesium Total Bilirubin AST ALT Alkaline Phosphatase Ammonia Total Creatine Kinase CK-MB (CK-2) CK-MB (CK-2) Rel Index Total Protein Albumin Urine WBC (Auto) Vancomycin Trough Salicylates Acetaminophen Plasma/Serum Alcohol Crossmatch 11/27/19 11/28/19 11/28/19 17:28 05:00 05:02 WBC RBC Hgb Hct MCH RDW Plt Count Lymph % (Auto) [place] % (Auto) [place] # Baso # Seg Neutrophils % Seg Neuts % (Manual) Lymphocytes % (Manual) Monocytes % (Manual) Seg Neutrophils # Seg Neutrophils # Man Lymphocytes # (Manual) Monocytes # (Manual) Eosinophils # (Manual) Basophils # (Manual) PT INR APTT ABG pH ABG pO2 72.4 L ABG HCO3 33.6 H ABG O2 Saturation 94.1 L ABG Base Excess 7.3 H ABG Hemoglobin Oxyhemoglobin 91.8 L Sodium 146 H Potassium 3.3 L Chloride Carbon Dioxide BUN 25 H Creatinine 0.6 L Glucose 176 H POC Glucose 198 H Lactic Acid Calcium Ionized Calcium Phosphorus Magnesium Total Bilirubin AST ALT Alkaline Phosphatase Ammonia Total Creatine Kinase CK-MB (CK-2) CK-MB (CK-2) Rel Index Total Protein Albumin Urine WBC (Auto) Vancomycin Trough Salicylates Acetaminophen Plasma/Serum Alcohol Crossmatch 11/28/19 11/28/19 11/29/19 05:02 18:55 10:43 WBC 15.2 H 19.0 H RBC 3.06 L 3.01 L Hgb 8.3 L 8.3 L Hct 27.0 L 26.4 L MCH 27 L RDW 19.0 H 19.7 H Plt Count 479 H 611 H Lymph % (Auto) [place] % (Auto) [place] # Baso # Seg Neutrophils % Seg Neuts % (Manual) 92.0 H Lymphocytes % (Manual) 2.0 L Monocytes % (Manual) Seg Neutrophils # Seg Neutrophils # Man 14.0 H Lymphocytes # (Manual) 0.3 L Monocytes # (Manual) Eosinophils # (Manual) Basophils # (Manual) PT INR APTT ABG pH ABG pO2 ABG HCO3 ABG O2 Saturation ABG Base Excess ABG Hemoglobin Oxyhemoglobin Sodium Potassium Chloride Carbon Dioxide BUN Creatinine Glucose POC Glucose 138 H Lactic Acid Calcium Ionized Calcium Phosphorus Magnesium Total Bilirubin AST ALT Alkaline Phosphatase Ammonia Total Creatine Kinase CK-MB (CK-2) CK-MB (CK-2) Rel Index Total Protein Albumin Urine WBC (Auto) Vancomycin Trough Salicylates Acetaminophen Plasma/Serum Alcohol Crossmatch 11/29/19 11/29/19 11/29/19 10:43 12:27 19:25 WBC RBC Hgb Hct MCH RDW Plt Count Lymph % (Auto) [place] % (Auto) [place] # Baso # Seg Neutrophils % Seg Neuts % (Manual) Lymphocytes % (Manual) Monocytes % (Manual) Seg Neutrophils # Seg Neutrophils # Man Lymphocytes # (Manual) Monocytes # (Manual) Eosinophils # (Manual) Basophils # (Manual) PT INR APTT ABG pH ABG pO2 ABG HCO3 ABG O2 Saturation ABG Base Excess ABG Hemoglobin Oxyhemoglobin Sodium Potassium 2.8 L* Chloride Carbon Dioxide BUN 20 H Creatinine 0.5 L Glucose 121 H POC Glucose 128 H 120 H Lactic Acid Calcium Ionized Calcium Phosphorus Magnesium Total Bilirubin AST ALT Alkaline Phosphatase Ammonia Total Creatine Kinase CK-MB (CK-2) CK-MB (CK-2) Rel Index Total Protein Albumin Urine WBC (Auto) Vancomycin Trough Salicylates Acetaminophen Plasma/Serum Alcohol Crossmatch 11/29/19 11/30/19 11/30/19 23:46 04:10 05:02 WBC RBC Hgb Hct MCH RDW Plt Count Lymph % (Auto) [place] % (Auto) [place] # Baso # Seg Neutrophils % Seg Neuts % (Manual) Lymphocytes % (Manual) Monocytes % (Manual) Seg Neutrophils # Seg Neutrophils # Man Lymphocytes # (Manual) Monocytes # (Manual) Eosinophils # (Manual) Basophils # (Manual) PT INR APTT ABG pH ABG pO2 76.3 L ABG HCO3 32.5 H ABG O2 Saturation ABG Base Excess 6.9 H ABG Hemoglobin 8.0 L Oxyhemoglobin 92.6 L Sodium Potassium Chloride Carbon Dioxide BUN Creatinine Glucose POC Glucose 116 H 128 H Lactic Acid Calcium Ionized Calcium Phosphorus Magnesium Total Bilirubin AST ALT Alkaline Phosphatase Ammonia Total Creatine Kinase CK-MB (CK-2) CK-MB (CK-2) Rel Index Total Protein Albumin Urine WBC (Auto) Vancomycin Trough Salicylates Acetaminophen Plasma/Serum Alcohol Crossmatch 11/30/19 11/30/19 11/30/19 05:25 05:25 12:59 WBC 18.4 H RBC 3.10 L Hgb 8.5 L Hct 27.5 L MCH 27 L RDW 20.9 H Plt Count 691 H Lymph % (Auto) 7.1 L [place] % (Auto) 7.7 H [place] # 1.4 H Baso # Seg Neutrophils % 83.4 H Seg Neuts % (Manual) Lymphocytes % (Manual) Monocytes % (Manual) Seg Neutrophils # 15.4 H Seg Neutrophils # Man Lymphocytes # (Manual) Monocytes # (Manual) Eosinophils # (Manual) Basophils # (Manual) PT INR APTT ABG pH ABG pO2 ABG HCO3 ABG O2 Saturation ABG Base Excess ABG Hemoglobin Oxyhemoglobin Sodium 146 H Potassium Chloride 107.2 H Carbon Dioxide BUN Creatinine 0.5 L Glucose 132 H POC Glucose 124 H Lactic Acid Calcium Ionized Calcium Phosphorus Magnesium Total Bilirubin AST 246 H ALT 274 H Alkaline Phosphatase 203 H Ammonia Total Creatine Kinase CK-MB (CK-2) CK-MB (CK-2) Rel Index Total Protein 5.4 L Albumin 2.9 L Urine WBC (Auto) Vancomycin Trough Salicylates Acetaminophen Plasma/Serum Alcohol Crossmatch 11/30/19 12/01/19 12/01/19 17:53 00:05 05:10 WBC RBC Hgb Hct MCH RDW Plt Count Lymph % (Auto) [place] % (Auto) [place] # Baso # Seg Neutrophils % Seg Neuts % (Manual) Lymphocytes % (Manual) Monocytes % (Manual) Seg Neutrophils # Seg Neutrophils # Man Lymphocytes # (Manual) Monocytes # (Manual) Eosinophils # (Manual) Basophils # (Manual) PT INR APTT ABG pH ABG pO2 ABG HCO3 ABG O2 Saturation ABG Base Excess ABG Hemoglobin Oxyhemoglobin Sodium Potassium Chloride Carbon Dioxide BUN Creatinine Glucose POC Glucose 113 H 143 H 145 H Lactic Acid Calcium Ionized Calcium Phosphorus Magnesium Total Bilirubin AST ALT Alkaline Phosphatase Ammonia Total Creatine Kinase CK-MB (CK-2) CK-MB (CK-2) Rel Index Total Protein Albumin Urine WBC (Auto) Vancomycin Trough Salicylates Acetaminophen Plasma/Serum Alcohol Crossmatch 03/14/20 03/14/20 03/14/20 05:33 08:23 08:23 WBC 22.7 H RBC 2.88 L Hgb 7.9 L Hct 25.2 L MCH 27 L RDW 21.0 H Plt Count 732 H Lymph % (Auto) [place] % (Auto) [place] # Baso # Seg Neutrophils % Seg Neuts % (Manual) 91.0 H Lymphocytes % (Manual) 3.0 L Monocytes % (Manual) Seg Neutrophils # Seg Neutrophils # Man 20.7 H Lymphocytes # (Manual) 0.7 L Monocytes # (Manual) 1.1 H Eosinophils # (Manual) Basophils # (Manual) PT INR APTT ABG pH ABG pO2 68.6 L ABG HCO3 34.1 H ABG O2 Saturation ABG Base Excess 9.0 H ABG Hemoglobin 6.5 L Oxyhemoglobin 94.7 L Sodium Potassium Chloride Carbon Dioxide BUN Creatinine 0.5 L Glucose 125 H POC Glucose Lactic Acid Calcium Ionized Calcium Phosphorus Magnesium Total Bilirubin AST ALT Alkaline Phosphatase Ammonia Total Creatine Kinase CK-MB (CK-2) CK-MB (CK-2) Rel Index Total Protein Albumin Urine WBC (Auto) Vancomycin Trough Salicylates Acetaminophen Plasma/Serum Alcohol Crossmatch 12/01/19 12/01/19 12/01/19 13:21 17:54 20:59 WBC RBC Hgb Hct MCH RDW Plt Count Lymph % (Auto) [place] % (Auto) [place] # Baso # Seg Neutrophils % Seg Neuts % (Manual) Lymphocytes % (Manual) Monocytes % (Manual) Seg Neutrophils # Seg Neutrophils # Man Lymphocytes # (Manual) Monocytes # (Manual) Eosinophils # (Manual) Basophils # (Manual) PT INR APTT ABG pH ABG pO2 78.3 L ABG HCO3 33.8 H ABG O2 Saturation 94.9 L ABG Base Excess 7.9 H ABG Hemoglobin 11.5 L Oxyhemoglobin 92.3 L Sodium Potassium Chloride Carbon Dioxide BUN Creatinine Glucose POC Glucose 111 H 115 H Lactic Acid Calcium Ionized Calcium Phosphorus Magnesium Total Bilirubin AST ALT Alkaline Phosphatase Ammonia Total Creatine Kinase CK-MB (CK-2) CK-MB (CK-2) Rel Index Total Protein Albumin Urine WBC (Auto) Vancomycin Trough Salicylates Acetaminophen Plasma/Serum Alcohol Crossmatch 12/02/19 12/03/19 12/04/19 12:55 20:00 04:26 WBC 15.2 H RBC 2.69 L Hgb 7.4 L Hct 23.6 L MCH 27 L RDW 19.9 H Plt Count 838 H Lymph % (Auto) [place] % (Auto) [place] # Baso # Seg Neutrophils % Seg Neuts % (Manual) Lymphocytes % (Manual) Monocytes % (Manual) Seg Neutrophils # Seg Neutrophils # Man Lymphocytes # (Manual) Monocytes # (Manual) Eosinophils # (Manual) Basophils # (Manual) PT INR APTT ABG pH ABG pO2 68.3 L ABG HCO3 33.5 H ABG O2 Saturation 93.5 L ABG Base Excess 8.4 H ABG Hemoglobin 7.3 L Oxyhemoglobin 90.9 L Sodium Potassium Chloride Carbon Dioxide BUN Creatinine Glucose POC Glucose 107 H Lactic Acid Calcium Ionized Calcium Phosphorus Magnesium Total Bilirubin AST ALT Alkaline Phosphatase Ammonia Total Creatine Kinase CK-MB (CK-2) CK-MB (CK-2) Rel Index Total Protein Albumin Urine WBC (Auto) Vancomycin Trough Salicylates Acetaminophen Plasma/Serum Alcohol Crossmatch 12/04/19 12/04/19 12/04/19 04:26 07:45 12:02 WBC 15.9 H RBC 2.88 L Hgb 7.9 L Hct 25.1 L MCH RDW 20.4 H Plt Count 839 H Lymph % (Auto) 11.3 L [place] % (Auto) 15.2 H [place] # 2.4 H Baso # Seg Neutrophils % 72.4 H Seg Neuts % (Manual) Lymphocytes % (Manual) Monocytes % (Manual) Seg Neutrophils # 11.5 H Seg Neutrophils # Man Lymphocytes # (Manual) Monocytes # (Manual) Eosinophils # (Manual) Basophils # (Manual) PT INR APTT ABG pH ABG pO2 ABG HCO3 ABG O2 Saturation ABG Base Excess ABG Hemoglobin Oxyhemoglobin Sodium Potassium Chloride 96.5 L Carbon Dioxide BUN 21 H Creatinine 0.6 L Glucose 107 H POC Glucose 138 H Lactic Acid Calcium Ionized Calcium Phosphorus Magnesium Total Bilirubin AST ALT Alkaline Phosphatase Ammonia Total Creatine Kinase CK-MB (CK-2) CK-MB (CK-2) Rel Index Total Protein Albumin Urine WBC (Auto) Vancomycin Trough Salicylates Acetaminophen Plasma/Serum Alcohol Crossmatch 12/04/19 12/05/19 12/05/19 18:16 11:55 18:36 WBC RBC Hgb Hct MCH RDW Plt Count Lymph % (Auto) [place] % (Auto) [place] # Baso # Seg Neutrophils % Seg Neuts % (Manual) Lymphocytes % (Manual) Monocytes % (Manual) Seg Neutrophils # Seg Neutrophils # Man Lymphocytes # (Manual) Monocytes # (Manual) Eosinophils # (Manual) Basophils # (Manual) PT INR APTT ABG pH ABG pO2 ABG HCO3 ABG O2 Saturation ABG Base Excess ABG Hemoglobin Oxyhemoglobin Sodium Potassium Chloride Carbon Dioxide BUN Creatinine Glucose POC Glucose 135 H 125 H 135 H Lactic Acid Calcium Ionized Calcium Phosphorus Magnesium Total Bilirubin AST ALT Alkaline Phosphatase Ammonia Total Creatine Kinase CK-MB (CK-2) CK-MB (CK-2) Rel Index Total Protein Albumin Urine WBC (Auto) Vancomycin Trough Salicylates Acetaminophen Plasma/Serum Alcohol Crossmatch 12/05/19 12/06/19 12/06/19 23:30 04:14 05:43 WBC RBC Hgb Hct MCH RDW Plt Count Lymph % (Auto) [place] % (Auto) [place] # Baso # Seg Neutrophils % Seg Neuts % (Manual) Lymphocytes % (Manual) Monocytes % (Manual) Seg Neutrophils # Seg Neutrophils # Man Lymphocytes # (Manual) Monocytes # (Manual) Eosinophils # (Manual) Basophils # (Manual) PT INR APTT ABG pH ABG pO2 ABG HCO3 ABG O2 Saturation ABG Base Excess ABG Hemoglobin Oxyhemoglobin Sodium Potassium 5.6 H Chloride 95.0 L Carbon Dioxide BUN 48 H Creatinine 1.3 H D Glucose POC Glucose 126 H 121 H Lactic Acid Calcium Ionized Calcium Phosphorus Magnesium Total Bilirubin AST 89 H ALT 98 H Alkaline Phosphatase 476 H Ammonia Total Creatine Kinase CK-MB (CK-2) CK-MB (CK-2) Rel Index Total Protein Albumin 2.8 L Urine WBC (Auto) Vancomycin Trough Salicylates Acetaminophen Plasma/Serum Alcohol Crossmatch 12/06/19 12/06/19 12/07/19 10:39 14:34 00:19 WBC 17.3 H RBC 2.60 L Hgb 7.1 L Hct 22.7 L MCH 27 L RDW 20.1 H Plt Count 832 H Lymph % (Auto) [place] % (Auto) [place] # Baso # Seg Neutrophils % Seg Neuts % (Manual) Lymphocytes % (Manual) Monocytes % (Manual) Seg Neutrophils # Seg Neutrophils # Man Lymphocytes # (Manual) Monocytes # (Manual) Eosinophils # (Manual) Basophils # (Manual) PT INR APTT ABG pH ABG pO2 ABG HCO3 ABG O2 Saturation ABG Base Excess ABG Hemoglobin Oxyhemoglobin Sodium Potassium Chloride Carbon Dioxide BUN Creatinine Glucose POC Glucose 128 H 136 H Lactic Acid Calcium Ionized Calcium Phosphorus Magnesium Total Bilirubin AST ALT Alkaline Phosphatase Ammonia Total Creatine Kinase CK-MB (CK-2) CK-MB (CK-2) Rel Index Total Protein Albumin Urine WBC (Auto) Vancomycin Trough Salicylates Acetaminophen Plasma/Serum Alcohol Crossmatch 12/07/19 12/07/19 12/07/19 03:44 03:44 05:53 WBC 16.2 H RBC 2.56 L Hgb 7.1 L Hct 22.3 L MCH RDW 19.4 H Plt Count 782 H Lymph % (Auto) [place] % (Auto) [place] # Baso # Seg Neutrophils % Seg Neuts % (Manual) Lymphocytes % (Manual) Monocytes % (Manual) Seg Neutrophils # Seg Neutrophils # Man Lymphocytes # (Manual) Monocytes # (Manual) Eosinophils # (Manual) Basophils # (Manual) PT INR APTT ABG pH ABG pO2 ABG HCO3 ABG O2 Saturation ABG Base Excess ABG Hemoglobin Oxyhemoglobin Sodium Potassium Chloride 95.6 L Carbon Dioxide BUN 56 H Creatinine 1.4 H Glucose 120 H POC Glucose 128 H Lactic Acid Calcium 10.3 H Ionized Calcium Phosphorus Magnesium Total Bilirubin AST ALT Alkaline Phosphatase Ammonia Total Creatine Kinase CK-MB (CK-2) CK-MB (CK-2) Rel Index Total Protein Albumin Urine WBC (Auto) Vancomycin Trough Salicylates Acetaminophen Plasma/Serum Alcohol Crossmatch 12/07/19 12/07/19 12/08/19 12:54 23:47 00:20 WBC RBC Hgb Hct MCH RDW Plt Count Lymph % (Auto) [place] % (Auto) [place] # Baso # Seg Neutrophils % Seg Neuts % (Manual) Lymphocytes % (Manual) Monocytes % (Manual) Seg Neutrophils # Seg Neutrophils # Man Lymphocytes # (Manual) Monocytes # (Manual) Eosinophils # (Manual) Basophils # (Manual) PT INR APTT ABG pH ABG pO2 ABG HCO3 ABG O2 Saturation ABG Base Excess ABG Hemoglobin Oxyhemoglobin Sodium Potassium Chloride Carbon Dioxide BUN Creatinine Glucose POC Glucose 128 H 130 H 124 H Lactic Acid Calcium Ionized Calcium Phosphorus Magnesium Total Bilirubin AST ALT Alkaline Phosphatase Ammonia Total Creatine Kinase CK-MB (CK-2) CK-MB (CK-2) Rel Index Total Protein Albumin Urine WBC (Auto) Vancomycin Trough Salicylates Acetaminophen Plasma/Serum Alcohol Crossmatch 12/08/19 12/08/19 12/08/19 06:38 12:04 18:26 WBC RBC Hgb Hct MCH RDW Plt Count Lymph % (Auto) [place] % (Auto) [place] # Baso # Seg Neutrophils % Seg Neuts % (Manual) Lymphocytes % (Manual) Monocytes % (Manual) Seg Neutrophils # Seg Neutrophils # Man Lymphocytes # (Manual) Monocytes # (Manual) Eosinophils # (Manual) Basophils # (Manual) PT INR APTT ABG pH ABG pO2 ABG HCO3 ABG O2 Saturation ABG Base Excess ABG Hemoglobin Oxyhemoglobin Sodium Potassium Chloride Carbon Dioxide BUN Creatinine Glucose POC Glucose 137 H 129 H 150 H Lactic Acid Calcium Ionized Calcium Phosphorus Magnesium Total Bilirubin AST ALT Alkaline Phosphatase Ammonia Total Creatine Kinase CK-MB (CK-2) CK-MB (CK-2) Rel Index Total Protein Albumin Urine WBC (Auto) Vancomycin Trough Salicylates Acetaminophen Plasma/Serum Alcohol Crossmatch 12/09/19 12/09/19 12/09/19 00:56 05:34 06:13 WBC RBC Hgb Hct MCH RDW Plt Count Lymph % (Auto) [place] % (Auto) [place] # Baso # Seg Neutrophils % Seg Neuts % (Manual) Lymphocytes % (Manual) Monocytes % (Manual) Seg Neutrophils # Seg Neutrophils # Man Lymphocytes # (Manual) Monocytes # (Manual) Eosinophils # (Manual) Basophils # (Manual) PT INR APTT ABG pH ABG pO2 ABG HCO3 ABG O2 Saturation ABG Base Excess ABG Hemoglobin Oxyhemoglobin Sodium 146 H Potassium Chloride Carbon Dioxide BUN 66 H Creatinine 1.9 H Glucose 116 H POC Glucose 130 H 130 H Lactic Acid Calcium Ionized Calcium Phosphorus Magnesium Total Bilirubin AST ALT Alkaline Phosphatase Ammonia Total Creatine Kinase CK-MB (CK-2) CK-MB (CK-2) Rel Index Total Protein Albumin Urine WBC (Auto) Vancomycin Trough Salicylates Acetaminophen Plasma/Serum Alcohol Crossmatch 12/09/19 12/09/19 12/10/19 11:52 17:50 00:14 WBC RBC Hgb Hct MCH RDW Plt Count Lymph % (Auto) [place] % (Auto) [place] # Baso # Seg Neutrophils % Seg Neuts % (Manual) Lymphocytes % (Manual) Monocytes % (Manual) Seg Neutrophils # Seg Neutrophils # Man Lymphocytes # (Manual) Monocytes # (Manual) Eosinophils # (Manual) Basophils # (Manual) PT INR APTT ABG pH ABG pO2 ABG HCO3 ABG O2 Saturation ABG Base Excess ABG Hemoglobin Oxyhemoglobin Sodium Potassium Chloride Carbon Dioxide BUN Creatinine Glucose POC Glucose 135 H 120 H 116 H Lactic Acid Calcium Ionized Calcium Phosphorus Magnesium Total Bilirubin AST ALT Alkaline Phosphatase Ammonia Total Creatine Kinase CK-MB (CK-2) CK-MB (CK-2) Rel Index Total Protein Albumin Urine WBC (Auto) Vancomycin Trough Salicylates Acetaminophen Plasma/Serum Alcohol Crossmatch 12/10/19 12/10/19 12/10/19 05:38 11:38 17:34 WBC RBC Hgb Hct MCH RDW Plt Count Lymph % (Auto) [place] % (Auto) [place] # Baso # Seg Neutrophils % Seg Neuts % (Manual) Lymphocytes % (Manual) Monocytes % (Manual) Seg Neutrophils # Seg Neutrophils # Man Lymphocytes # (Manual) Monocytes # (Manual) Eosinophils # (Manual) Basophils # (Manual) PT INR APTT ABG pH ABG pO2 ABG HCO3 ABG O2 Saturation ABG Base Excess ABG Hemoglobin Oxyhemoglobin Sodium Potassium Chloride Carbon Dioxide BUN Creatinine Glucose POC Glucose 115 H 112 H 130 H Lactic Acid Calcium Ionized Calcium Phosphorus Magnesium Total Bilirubin AST ALT Alkaline Phosphatase Ammonia Total Creatine Kinase CK-MB (CK-2) CK-MB (CK-2) Rel Index Total Protein Albumin Urine WBC (Auto) Vancomycin Trough Salicylates Acetaminophen Plasma/Serum Alcohol Crossmatch 12/11/19 12/11/19 12/11/19 00:20 05:31 12:22 WBC RBC Hgb Hct MCH RDW Plt Count Lymph % (Auto) [place] % (Auto) [place] # Baso # Seg Neutrophils % Seg Neuts % (Manual) Lymphocytes % (Manual) Monocytes % (Manual) Seg Neutrophils # Seg Neutrophils # Man Lymphocytes # (Manual) Monocytes # (Manual) Eosinophils # (Manual) Basophils # (Manual) PT INR APTT ABG pH ABG pO2 ABG HCO3 ABG O2 Saturation ABG Base Excess ABG Hemoglobin Oxyhemoglobin Sodium Potassium Chloride Carbon Dioxide BUN Creatinine Glucose POC Glucose 124 H 132 H 128 H Lactic Acid Calcium Ionized Calcium Phosphorus Magnesium Total Bilirubin AST ALT Alkaline Phosphatase Ammonia Total Creatine Kinase CK-MB (CK-2) CK-MB (CK-2) Rel Index Total Protein Albumin Urine WBC (Auto) Vancomycin Trough Salicylates Acetaminophen Plasma/Serum Alcohol Crossmatch 12/11/19 12/11/19 12/12/19 18:04 23:42 03:51 WBC RBC Hgb Hct MCH RDW Plt Count Lymph % (Auto) [place] % (Auto) [place] # Baso # Seg Neutrophils % Seg Neuts % (Manual) Lymphocytes % (Manual) Monocytes % (Manual) Seg Neutrophils # Seg Neutrophils # Man Lymphocytes # (Manual) Monocytes # (Manual) Eosinophils # (Manual) Basophils # (Manual) PT INR APTT ABG pH ABG pO2 ABG HCO3 ABG O2 Saturation ABG Base Excess ABG Hemoglobin Oxyhemoglobin Sodium 149 H Potassium Chloride Carbon Dioxide 20 L D BUN 77 H Creatinine 2.8 H Glucose POC Glucose 133 H 154 H Lactic Acid Calcium Ionized Calcium Phosphorus Magnesium Total Bilirubin AST ALT Alkaline Phosphatase Ammonia Total Creatine Kinase CK-MB (CK-2) CK-MB (CK-2) Rel Index Total Protein Albumin Urine WBC (Auto) Vancomycin Trough Salicylates Acetaminophen Plasma/Serum Alcohol Crossmatch 12/12/19 12/12/19 12/12/19 05:18 05:26 10:30 WBC 18.0 H RBC 2.51 L Hgb 6.8 L Hct 22.0 L MCH 27 L RDW 19.9 H Plt Count 582 H Lymph % (Auto) [place] % (Auto) [place] # Baso # Seg Neutrophils % Seg Neuts % (Manual) Lymphocytes % (Manual) Monocytes % (Manual) Seg Neutrophils # Seg Neutrophils # Man Lymphocytes # (Manual) Monocytes # (Manual) Eosinophils # (Manual) Basophils # (Manual) PT INR APTT ABG pH ABG pO2 ABG HCO3 ABG O2 Saturation ABG Base Excess ABG Hemoglobin Oxyhemoglobin Sodium Potassium Chloride Carbon Dioxide BUN Creatinine Glucose POC Glucose 135 H Lactic Acid Calcium Ionized Calcium Phosphorus Magnesium Total Bilirubin AST ALT Alkaline Phosphatase Ammonia Total Creatine Kinase CK-MB (CK-2) CK-MB (CK-2) Rel Index Total Protein Albumin Urine WBC (Auto) Vancomycin Trough Salicylates Acetaminophen Plasma/Serum Alcohol Crossmatch See Detail 12/12/19 12/12/19 12/12/19 11:44 18:10 23:21 WBC RBC Hgb Hct MCH RDW Plt Count Lymph % (Auto) [place] % (Auto) [place] # Baso # Seg Neutrophils % Seg Neuts % (Manual) Lymphocytes % (Manual) Monocytes % (Manual) Seg Neutrophils # Seg Neutrophils # Man Lymphocytes # (Manual) Monocytes # (Manual) Eosinophils # (Manual) Basophils # (Manual) PT INR APTT ABG pH ABG pO2 ABG HCO3 ABG O2 Saturation ABG Base Excess ABG Hemoglobin Oxyhemoglobin Sodium Potassium Chloride Carbon Dioxide BUN Creatinine Glucose POC Glucose 108 H 107 H 126 H Lactic Acid Calcium Ionized Calcium Phosphorus Magnesium Total Bilirubin AST ALT Alkaline Phosphatase Ammonia Total Creatine Kinase CK-MB (CK-2) CK-MB (CK-2) Rel Index Total Protein Albumin Urine WBC (Auto) Vancomycin Trough Salicylates Acetaminophen Plasma/Serum Alcohol Crossmatch 12/13/19 12/13/19 12/13/19 05:41 07:48 07:48 WBC 38.3 H RBC 2.37 L Hgb 6.3 L Hct 20.9 L MCH 27 L RDW 20.2 H Plt Count 546 H Lymph % (Auto) [place] % (Auto) [place] # Baso # Seg Neutrophils % Seg Neuts % (Manual) 93.0 H Lymphocytes % (Manual) 1.0 L Monocytes % (Manual) Seg Neutrophils # Seg Neutrophils # Man 35.6 H Lymphocytes # (Manual) 0.4 L Monocytes # (Manual) Eosinophils # (Manual) Basophils # (Manual) 0.4 H PT INR APTT ABG pH ABG pO2 ABG HCO3 ABG O2 Saturation ABG Base Excess ABG Hemoglobin Oxyhemoglobin Sodium 152 H Potassium 3.1 L D Chloride 111.9 H Carbon Dioxide 21 L BUN 53 H Creatinine 1.9 H Glucose 141 H POC Glucose 128 H Lactic Acid Calcium Ionized Calcium Phosphorus Magnesium Total Bilirubin AST ALT Alkaline Phosphatase 316 H Ammonia Total Creatine Kinase CK-MB (CK-2) CK-MB (CK-2) Rel Index Total Protein Albumin 2.4 L Urine WBC (Auto) Vancomycin Trough Salicylates Acetaminophen Plasma/Serum Alcohol Crossmatch 12/13/19 12/13/19 12/14/19 18:17 23:19 05:36 WBC RBC Hgb Hct MCH RDW Plt Count Lymph % (Auto) [place] % (Auto) [place] # Baso # Seg Neutrophils % Seg Neuts % (Manual) Lymphocytes % (Manual) Monocytes % (Manual) Seg Neutrophils # Seg Neutrophils # Man Lymphocytes # (Manual) Monocytes # (Manual) Eosinophils # (Manual) Basophils # (Manual) PT INR APTT ABG pH ABG pO2 ABG HCO3 ABG O2 Saturation ABG Base Excess ABG Hemoglobin Oxyhemoglobin Sodium Potassium Chloride Carbon Dioxide BUN Creatinine Glucose POC Glucose 141 H 158 H 182 H Lactic Acid Calcium Ionized Calcium Phosphorus Magnesium Total Bilirubin AST ALT Alkaline Phosphatase Ammonia Total Creatine Kinase CK-MB (CK-2) CK-MB (CK-2) Rel Index Total Protein Albumin Urine WBC (Auto) Vancomycin Trough Salicylates Acetaminophen Plasma/Serum Alcohol Crossmatch 12/14/19 12/14/19 12/14/19 08:48 08:48 10:31 WBC 33.3 H RBC 2.70 L Hgb 7.9 L 8.0 L Hct 25.3 L 24.0 L MCH RDW 19.2 H Plt Count 476 H Lymph % (Auto) [place] % (Auto) [place] # Baso # Seg Neutrophils % Seg Neuts % (Manual) Lymphocytes % (Manual) Monocytes % (Manual) Seg Neutrophils # Seg Neutrophils # Man Lymphocytes # (Manual) Monocytes # (Manual) Eosinophils # (Manual) Basophils # (Manual) PT INR APTT ABG pH ABG pO2 ABG HCO3 ABG O2 Saturation ABG Base Excess ABG Hemoglobin Oxyhemoglobin Sodium 153 H Potassium 2.5 L* Chloride 114.9 H Carbon Dioxide 20 L BUN 38 H Creatinine 1.4 H Glucose 177 H POC Glucose Lactic Acid Calcium Ionized Calcium Phosphorus Magnesium Total Bilirubin AST ALT Alkaline Phosphatase Ammonia Total Creatine Kinase CK-MB (CK-2) CK-MB (CK-2) Rel Index Total Protein Albumin Urine WBC (Auto) Vancomycin Trough Salicylates Acetaminophen Plasma/Serum Alcohol Crossmatch 12/14/19 12/14/19 12/14/19 12:57 16:15 17:50 WBC RBC Hgb Hct MCH RDW Plt Count Lymph % (Auto) [place] % (Auto) [place] # Baso # Seg Neutrophils % Seg Neuts % (Manual) Lymphocytes % (Manual) Monocytes % (Manual) Seg Neutrophils # Seg Neutrophils # Man Lymphocytes # (Manual) Monocytes # (Manual) Eosinophils # (Manual) Basophils # (Manual) PT INR APTT ABG pH ABG pO2 73.6 L ABG HCO3 ABG O2 Saturation ABG Base Excess ABG Hemoglobin 7.6 L Oxyhemoglobin 94.0 L Sodium Potassium Chloride Carbon Dioxide BUN Creatinine Glucose POC Glucose 174 H 150 H Lactic Acid Calcium Ionized Calcium Phosphorus Magnesium Total Bilirubin AST ALT Alkaline Phosphatase Ammonia Total Creatine Kinase CK-MB (CK-2) CK-MB (CK-2) Rel Index Total Protein Albumin Urine WBC (Auto) Vancomycin Trough Salicylates Acetaminophen Plasma/Serum Alcohol Crossmatch 12/15/19 12/15/19 12/15/19 00:28 05:27 07:23 WBC 30.0 H RBC 3.11 L Hgb 8.6 L Hct 27.7 L MCH RDW 20.0 H Plt Count 473 H Lymph % (Auto) [place] % (Auto) [place] # Baso # Seg Neutrophils % Seg Neuts % (Manual) Lymphocytes % (Manual) Monocytes % (Manual) Seg Neutrophils # Seg Neutrophils # Man Lymphocytes # (Manual) Monocytes # (Manual) Eosinophils # (Manual) Basophils # (Manual) PT INR APTT ABG pH ABG pO2 ABG HCO3 ABG O2 Saturation ABG Base Excess ABG Hemoglobin Oxyhemoglobin Sodium Potassium Chloride Carbon Dioxide BUN Creatinine Glucose POC Glucose 167 H 148 H Lactic Acid Calcium Ionized Calcium Phosphorus Magnesium Total Bilirubin AST ALT Alkaline Phosphatase Ammonia Total Creatine Kinase CK-MB (CK-2) CK-MB (CK-2) Rel Index Total Protein Albumin Urine WBC (Auto) Vancomycin Trough Salicylates Acetaminophen Plasma/Serum Alcohol Crossmatch 12/15/19 12/15/19 12/15/19 07:23 12:21 17:41 WBC RBC Hgb Hct MCH RDW Plt Count Lymph % (Auto) [place] % (Auto) [place] # Baso # Seg Neutrophils % Seg Neuts % (Manual) Lymphocytes % (Manual) Monocytes % (Manual) Seg Neutrophils # Seg Neutrophils # Man Lymphocytes # (Manual) Monocytes # (Manual) Eosinophils # (Manual) Basophils # (Manual) PT INR APTT ABG pH ABG pO2 ABG HCO3 ABG O2 Saturation ABG Base Excess ABG Hemoglobin Oxyhemoglobin Sodium 147 H Potassium 3.5 L D Chloride 111.2 H Carbon Dioxide 19 L BUN 29 H Creatinine Glucose 126 H POC Glucose 154 H 144 H Lactic Acid Calcium Ionized Calcium Phosphorus Magnesium Total Bilirubin AST ALT Alkaline Phosphatase Ammonia Total Creatine Kinase CK-MB (CK-2) CK-MB (CK-2) Rel Index Total Protein Albumin Urine WBC (Auto) Vancomycin Trough Salicylates Acetaminophen Plasma/Serum Alcohol Crossmatch 12/16/19 12/16/19 12/16/19 00:22 05:30 05:44 WBC 30.8 H RBC 2.58 L Hgb 7.1 L Hct 22.7 L MCH RDW 19.6 H Plt Count 451 H Lymph % (Auto) [place] % (Auto) [place] # Baso # Seg Neutrophils % Seg Neuts % (Manual) Lymphocytes % (Manual) Monocytes % (Manual) Seg Neutrophils # Seg Neutrophils # Man Lymphocytes # (Manual) Monocytes # (Manual) Eosinophils # (Manual) Basophils # (Manual) PT INR APTT ABG pH ABG pO2 ABG HCO3 ABG O2 Saturation ABG Base Excess ABG Hemoglobin Oxyhemoglobin Sodium Potassium Chloride Carbon Dioxide BUN Creatinine Glucose POC Glucose 139 H 126 H Lactic Acid Calcium Ionized Calcium Phosphorus Magnesium Total Bilirubin AST ALT Alkaline Phosphatase Ammonia Total Creatine Kinase CK-MB (CK-2) CK-MB (CK-2) Rel Index Total Protein Albumin Urine WBC (Auto) Vancomycin Trough Salicylates Acetaminophen Plasma/Serum Alcohol Crossmatch 12/16/19 12/16/19 12/16/19 05:44 11:48 17:37 WBC RBC Hgb Hct MCH RDW Plt Count Lymph % (Auto) [place] % (Auto) [place] # Baso # Seg Neutrophils % Seg Neuts % (Manual) Lymphocytes % (Manual) Monocytes % (Manual) Seg Neutrophils # Seg Neutrophils # Man Lymphocytes # (Manual) Monocytes # (Manual) Eosinophils # (Manual) Basophils # (Manual) PT INR APTT ABG pH ABG pO2 ABG HCO3 ABG O2 Saturation ABG Base Excess ABG Hemoglobin Oxyhemoglobin Sodium Potassium 3.4 L Chloride 109.2 H Carbon Dioxide 19 L BUN 27 H Creatinine Glucose 124 H POC Glucose 125 H 148 H Lactic Acid Calcium Ionized Calcium Phosphorus Magnesium Total Bilirubin AST ALT Alkaline Phosphatase Ammonia Total Creatine Kinase CK-MB (CK-2) CK-MB (CK-2) Rel Index Total Protein Albumin Urine WBC (Auto) Vancomycin Trough Salicylates Acetaminophen Plasma/Serum Alcohol Crossmatch 12/16/19 12/17/19 12/17/19 23:43 05:28 12:47 WBC RBC Hgb Hct MCH RDW Plt Count Lymph % (Auto) [place] % (Auto) [place] # Baso # Seg Neutrophils % Seg Neuts % (Manual) Lymphocytes % (Manual) Monocytes % (Manual) Seg Neutrophils # Seg Neutrophils # Man Lymphocytes # (Manual) Monocytes # (Manual) Eosinophils # (Manual) Basophils # (Manual) PT INR APTT ABG pH ABG pO2 ABG HCO3 ABG O2 Saturation ABG Base Excess ABG Hemoglobin Oxyhemoglobin Sodium Potassium Chloride Carbon Dioxide BUN Creatinine Glucose POC Glucose 142 H 140 H 125 H Lactic Acid Calcium Ionized Calcium Phosphorus Magnesium Total Bilirubin AST ALT Alkaline Phosphatase Ammonia Total Creatine Kinase CK-MB (CK-2) CK-MB (CK-2) Rel Index Total Protein Albumin Urine WBC (Auto) Vancomycin Trough Salicylates Acetaminophen Plasma/Serum Alcohol Crossmatch 12/17/19 12/17/19 12/17/19 17:05 18:00 Unknown WBC RBC Hgb Hct MCH RDW Plt Count Lymph % (Auto) [place] % (Auto) [place] # Baso # Seg Neutrophils % Seg Neuts % (Manual) Lymphocytes % (Manual) Monocytes % (Manual) Seg Neutrophils # Seg Neutrophils # Man Lymphocytes # (Manual) Monocytes # (Manual) Eosinophils # (Manual) Basophils # (Manual) PT INR APTT ABG pH ABG pO2 68.1 L ABG HCO3 ABG O2 Saturation 93.7 L ABG Base Excess ABG Hemoglobin 5.0 L Oxyhemoglobin 91.7 L Sodium Potassium Chloride Carbon Dioxide BUN Creatinine Glucose POC Glucose 140 H Lactic Acid Calcium Ionized Calcium Phosphorus Magnesium Total Bilirubin AST ALT Alkaline Phosphatase Ammonia Total Creatine Kinase CK-MB (CK-2) CK-MB (CK-2) Rel Index Total Protein Albumin Urine WBC (Auto) Vancomycin Trough Salicylates Acetaminophen Plasma/Serum Alcohol Crossmatch 12/18/19 12/18/19 12/18/19 00:16 04:53 04:53 WBC 28.6 H RBC 2.27 L Hgb 6.3 L Hct 19.5 L* MCH RDW 20.0 H Plt Count 497 H Lymph % (Auto) [place] % (Auto) [place] # Baso # Seg Neutrophils % Seg Neuts % (Manual) Lymphocytes % (Manual) Monocytes % (Manual) Seg Neutrophils # Seg Neutrophils # Man Lymphocytes # (Manual) Monocytes # (Manual) Eosinophils # (Manual) Basophils # (Manual) PT INR APTT ABG pH ABG pO2 ABG HCO3 ABG O2 Saturation ABG Base Excess ABG Hemoglobin Oxyhemoglobin Sodium Potassium Chloride 107.9 H Carbon Dioxide 20 L BUN 27 H Creatinine 0.6 L Glucose 116 H POC Glucose 123 H Lactic Acid Calcium Ionized Calcium Phosphorus Magnesium Total Bilirubin AST ALT Alkaline Phosphatase Ammonia Total Creatine Kinase CK-MB (CK-2) CK-MB (CK-2) Rel Index Total Protein Albumin Urine WBC (Auto) Vancomycin Trough Salicylates Acetaminophen Plasma/Serum Alcohol Crossmatch 12/18/19 12/18/19 12/18/19 06:38 11:22 12:08 WBC RBC Hgb Hct MCH RDW Plt Count Lymph % (Auto) [place] % (Auto) [place] # Baso # Seg Neutrophils % Seg Neuts % (Manual) Lymphocytes % (Manual) Monocytes % (Manual) Seg Neutrophils # Seg Neutrophils # Man Lymphocytes # (Manual) Monocytes # (Manual) Eosinophils # (Manual) Basophils # (Manual) PT INR APTT ABG pH ABG pO2 ABG HCO3 ABG O2 Saturation ABG Base Excess ABG Hemoglobin Oxyhemoglobin Sodium Potassium Chloride Carbon Dioxide BUN Creatinine Glucose POC Glucose 120 H 127 H Lactic Acid Calcium Ionized Calcium Phosphorus Magnesium Total Bilirubin AST ALT Alkaline Phosphatase Ammonia Total Creatine Kinase CK-MB (CK-2) CK-MB (CK-2) Rel Index Total Protein Albumin Urine WBC (Auto) Vancomycin Trough Salicylates Acetaminophen Plasma/Serum Alcohol Crossmatch See Detail 12/18/19 12/18/19 12/18/19 14:05 17:49 23:53 WBC RBC Hgb Hct MCH RDW Plt Count Lymph % (Auto) [place] % (Auto) [place] # Baso # Seg Neutrophils % Seg Neuts % (Manual) Lymphocytes % (Manual) Monocytes % (Manual) Seg Neutrophils # Seg Neutrophils # Man Lymphocytes # (Manual) Monocytes # (Manual) Eosinophils # (Manual) Basophils # (Manual) PT INR APTT ABG pH 7.267 L ABG pO2 69.8 L ABG HCO3 ABG O2 Saturation 88.4 L ABG Base Excess ABG Hemoglobin 7.1 L Oxyhemoglobin 86.4 L Sodium Potassium Chloride Carbon Dioxide BUN Creatinine Glucose POC Glucose 157 H 128 H Lactic Acid Calcium Ionized Calcium Phosphorus Magnesium Total Bilirubin AST ALT Alkaline Phosphatase Ammonia Total Creatine Kinase CK-MB (CK-2) CK-MB (CK-2) Rel Index Total Protein Albumin Urine WBC (Auto) Vancomycin Trough Salicylates Acetaminophen Plasma/Serum Alcohol Crossmatch 12/19/19 12/19/19 12/19/19 03:37 03:37 05:25 WBC 31.3 H RBC 2.60 L Hgb 7.6 L Hct 23.0 L MCH RDW 19.4 H Plt Count 530 H Lymph % (Auto) [place] % (Auto) [place] # Baso # Seg Neutrophils % Seg Neuts % (Manual) Lymphocytes % (Manual) Monocytes % (Manual) Seg Neutrophils # Seg Neutrophils # Man Lymphocytes # (Manual) Monocytes # (Manual) Eosinophils # (Manual) Basophils # (Manual) PT INR APTT ABG pH ABG pO2 ABG HCO3 ABG O2 Saturation ABG Base Excess ABG Hemoglobin Oxyhemoglobin Sodium Potassium Chloride Carbon Dioxide 18 L BUN 36 H Creatinine Glucose 111 H POC Glucose 123 H Lactic Acid Calcium Ionized Calcium Phosphorus Magnesium Total Bilirubin AST ALT Alkaline Phosphatase Ammonia Total Creatine Kinase CK-MB (CK-2) CK-MB (CK-2) Rel Index Total Protein Albumin Urine WBC (Auto) Vancomycin Trough Salicylates Acetaminophen Plasma/Serum Alcohol Crossmatch 12/19/19 12/19/19 12/20/19 12:59 18:33 00:00 WBC RBC Hgb Hct MCH RDW Plt Count Lymph % (Auto) [place] % (Auto) [place] # Baso # Seg Neutrophils % Seg Neuts % (Manual) Lymphocytes % (Manual) Monocytes % (Manual) Seg Neutrophils # Seg Neutrophils # Man Lymphocytes # (Manual) Monocytes # (Manual) Eosinophils # (Manual) Basophils # (Manual) PT INR APTT ABG pH ABG pO2 ABG HCO3 ABG O2 Saturation ABG Base Excess ABG Hemoglobin Oxyhemoglobin Sodium Potassium Chloride Carbon Dioxide BUN Creatinine Glucose POC Glucose 130 H 118 H 135 H Lactic Acid Calcium Ionized Calcium Phosphorus Magnesium Total Bilirubin AST ALT Alkaline Phosphatase Ammonia Total Creatine Kinase CK-MB (CK-2) CK-MB (CK-2) Rel Index Total Protein Albumin Urine WBC (Auto) Vancomycin Trough Salicylates Acetaminophen Plasma/Serum Alcohol Crossmatch 12/20/19 12/20/19 12/20/19 05:46 12:31 18:07 WBC RBC Hgb Hct MCH RDW Plt Count Lymph % (Auto) [place] % (Auto) [place] # Baso # Seg Neutrophils % Seg Neuts % (Manual) Lymphocytes % (Manual) Monocytes % (Manual) Seg Neutrophils # Seg Neutrophils # Man Lymphocytes # (Manual) Monocytes # (Manual) Eosinophils # (Manual) Basophils # (Manual) PT INR APTT ABG pH ABG pO2 ABG HCO3 ABG O2 Saturation ABG Base Excess ABG Hemoglobin Oxyhemoglobin Sodium Potassium Chloride Carbon Dioxide BUN Creatinine Glucose POC Glucose 131 H 128 H 134 H Lactic Acid Calcium Ionized Calcium Phosphorus Magnesium Total Bilirubin AST ALT Alkaline Phosphatase Ammonia Total Creatine Kinase CK-MB (CK-2) CK-MB (CK-2) Rel Index Total Protein Albumin Urine WBC (Auto) Vancomycin Trough Salicylates Acetaminophen Plasma/Serum Alcohol Crossmatch 12/21/19 12/21/19 12/21/19 03:28 03:28 07:21 WBC 29.4 H RBC 2.30 L Hgb 6.8 L Hct 20.2 L MCH RDW 20.2 H Plt Count 746 H Lymph % (Auto) [place] % (Auto) [place] # Baso # Seg Neutrophils % Seg Neuts % (Manual) 85.0 H Lymphocytes % (Manual) 8.0 L Monocytes % (Manual) Seg Neutrophils # Seg Neutrophils # Man 25.0 H Lymphocytes # (Manual) Monocytes # (Manual) 1.5 H Eosinophils # (Manual) 0.6 H Basophils # (Manual) PT INR APTT ABG pH ABG pO2 ABG HCO3 ABG O2 Saturation ABG Base Excess ABG Hemoglobin Oxyhemoglobin Sodium Potassium Chloride Carbon Dioxide 17 L BUN 57 H Creatinine 1.4 H D Glucose POC Glucose 124 H Lactic Acid Calcium Ionized Calcium Phosphorus Magnesium Total Bilirubin AST ALT Alkaline Phosphatase Ammonia Total Creatine Kinase CK-MB (CK-2) CK-MB (CK-2) Rel Index Total Protein Albumin Urine WBC (Auto) Vancomycin Trough Salicylates Acetaminophen Plasma/Serum Alcohol Crossmatch 12/21/19 12/21/19 12/21/19 08:56 12:06 14:53 WBC RBC Hgb 7.2 L Hct 22.9 L MCH RDW Plt Count Lymph % (Auto) [place] % (Auto) [place] # Baso # Seg Neutrophils % Seg Neuts % (Manual) Lymphocytes % (Manual) Monocytes % (Manual) Seg Neutrophils # Seg Neutrophils # Man Lymphocytes # (Manual) Monocytes # (Manual) Eosinophils # (Manual) Basophils # (Manual) PT INR APTT ABG pH ABG pO2 ABG HCO3 ABG O2 Saturation ABG Base Excess ABG Hemoglobin Oxyhemoglobin Sodium Potassium Chloride Carbon Dioxide BUN Creatinine Glucose POC Glucose 116 H Lactic Acid Calcium Ionized Calcium Phosphorus Magnesium Total Bilirubin AST ALT Alkaline Phosphatase Ammonia Total Creatine Kinase CK-MB (CK-2) CK-MB (CK-2) Rel Index Total Protein Albumin Urine WBC (Auto) Vancomycin Trough 33.8 H Salicylates Acetaminophen Plasma/Serum Alcohol Crossmatch 12/21/19 12/21/19 12/21/19 14:54 17:27 23:49 WBC RBC Hgb Hct MCH RDW Plt Count Lymph % (Auto) [place] % (Auto) [place] # Baso # Seg Neutrophils % Seg Neuts % (Manual) Lymphocytes % (Manual) Monocytes % (Manual) Seg Neutrophils # Seg Neutrophils # Man Lymphocytes # (Manual) Monocytes # (Manual) Eosinophils # (Manual) Basophils # (Manual) PT INR APTT ABG pH ABG pO2 ABG HCO3 ABG O2 Saturation ABG Base Excess ABG Hemoglobin Oxyhemoglobin Sodium Potassium Chloride Carbon Dioxide BUN Creatinine Glucose POC Glucose 145 H 127 H Lactic Acid Calcium Ionized Calcium Phosphorus Magnesium Total Bilirubin AST ALT Alkaline Phosphatase Ammonia Total Creatine Kinase CK-MB (CK-2) CK-MB (CK-2) Rel Index Total Protein Albumin Urine WBC (Auto) Vancomycin Trough Salicylates Acetaminophen Plasma/Serum Alcohol Crossmatch See Detail 12/22/19 12/22/19 12/22/19 04:43 05:56 08:40 WBC RBC Hgb Hct MCH RDW Plt Count Lymph % (Auto) [place] % (Auto) [place] # Baso # Seg Neutrophils % Seg Neuts % (Manual) Lymphocytes % (Manual) Monocytes % (Manual) Seg Neutrophils # Seg Neutrophils # Man Lymphocytes # (Manual) Monocytes # (Manual) Eosinophils # (Manual) Basophils # (Manual) PT INR APTT ABG pH ABG pO2 75.6 L ABG HCO3 ABG O2 Saturation ABG Base Excess -2.6 L ABG Hemoglobin 6.8 L Oxyhemoglobin 94.6 L Sodium Potassium Chloride Carbon Dioxide 17 L BUN 60 H Creatinine 1.4 H Glucose 126 H POC Glucose 153 H Lactic Acid Calcium Ionized Calcium Phosphorus Magnesium Total Bilirubin AST ALT Alkaline Phosphatase Ammonia Total Creatine Kinase CK-MB (CK-2) CK-MB (CK-2) Rel Index Total Protein Albumin Urine WBC (Auto) Vancomycin Trough Salicylates Acetaminophen Plasma/Serum Alcohol Crossmatch 12/22/19 12/22/19 12/23/19 12:07 17:49 04:30 WBC 22.4 H RBC 2.68 L Hgb 7.6 L Hct 22.9 L MCH RDW 19.9 H Plt Count 998 H Lymph % (Auto) [place] % (Auto) [place] # Baso # Seg Neutrophils % Seg Neuts % (Manual) 88.0 H Lymphocytes % (Manual) 2.0 L Monocytes % (Manual) 9.0 H Seg Neutrophils # Seg Neutrophils # Man 19.7 H Lymphocytes # (Manual) 0.4 L Monocytes # (Manual) 2.0 H Eosinophils # (Manual) Basophils # (Manual) PT INR APTT ABG pH ABG pO2 ABG HCO3 ABG O2 Saturation ABG Base Excess ABG Hemoglobin Oxyhemoglobin Sodium Potassium Chloride Carbon Dioxide BUN Creatinine Glucose POC Glucose 140 H 116 H Lactic Acid Calcium Ionized Calcium Phosphorus Magnesium Total Bilirubin AST ALT Alkaline Phosphatase Ammonia Total Creatine Kinase CK-MB (CK-2) CK-MB (CK-2) Rel Index Total Protein Albumin Urine WBC (Auto) Vancomycin Trough Salicylates Acetaminophen Plasma/Serum Alcohol Crossmatch 12/23/19 12/23/19 12/23/19 04:30 12:00 18:06 WBC RBC Hgb Hct MCH RDW Plt Count Lymph % (Auto) [place] % (Auto) [place] # Baso # Seg Neutrophils % Seg Neuts % (Manual) Lymphocytes % (Manual) Monocytes % (Manual) Seg Neutrophils # Seg Neutrophils # Man Lymphocytes # (Manual) Monocytes # (Manual) Eosinophils # (Manual) Basophils # (Manual) PT INR APTT ABG pH ABG pO2 ABG HCO3 ABG O2 Saturation ABG Base Excess ABG Hemoglobin Oxyhemoglobin Sodium Potassium 5.2 H Chloride Carbon Dioxide 21 L BUN 69 H Creatinine 1.5 H Glucose 117 H POC Glucose 128 H 138 H Lactic Acid Calcium Ionized Calcium Phosphorus Magnesium Total Bilirubin AST ALT Alkaline Phosphatase Ammonia Total Creatine Kinase CK-MB (CK-2) CK-MB (CK-2) Rel Index Total Protein Albumin Urine WBC (Auto) Vancomycin Trough Salicylates Acetaminophen Plasma/Serum Alcohol Crossmatch 12/23/19 12/24/19 12/24/19 23:46 04:31 05:08 WBC RBC Hgb Hct MCH RDW Plt Count Lymph % (Auto) [place] % (Auto) [place] # Baso # Seg Neutrophils % Seg Neuts % (Manual) Lymphocytes % (Manual) Monocytes % (Manual) Seg Neutrophils # Seg Neutrophils # Man Lymphocytes # (Manual) Monocytes # (Manual) Eosinophils # (Manual) Basophils # (Manual) PT INR APTT ABG pH ABG pO2 ABG HCO3 ABG O2 Saturation ABG Base Excess ABG Hemoglobin Oxyhemoglobin Sodium Potassium 5.3 H Chloride 107.6 H Carbon Dioxide 20 L BUN 72 H Creatinine 1.6 H Glucose 120 H POC Glucose 120 H 140 H Lactic Acid Calcium Ionized Calcium Phosphorus Magnesium Total Bilirubin AST ALT Alkaline Phosphatase Ammonia Total Creatine Kinase CK-MB (CK-2) CK-MB (CK-2) Rel Index Total Protein Albumin Urine WBC (Auto) Vancomycin Trough Salicylates Acetaminophen Plasma/Serum Alcohol Crossmatch 12/24/19 12/24/19 12/25/19 11:58 17:49 03:47 WBC 36.2 H RBC 2.92 L Hgb 8.4 L Hct 26.1 L MCH RDW 20.2 H Plt Count 942 H Lymph % (Auto) [place] % (Auto) [place] # Baso # Seg Neutrophils % Seg Neuts % (Manual) 97.5 H Lymphocytes % (Manual) 1.0 L Monocytes % (Manual) Seg Neutrophils # Seg Neutrophils # Man 35.3 H Lymphocytes # (Manual) 0.4 L Monocytes # (Manual) Eosinophils # (Manual) Basophils # (Manual) PT INR APTT ABG pH ABG pO2 ABG HCO3 ABG O2 Saturation ABG Base Excess ABG Hemoglobin Oxyhemoglobin Sodium Potassium Chloride Carbon Dioxide BUN Creatinine Glucose POC Glucose 146 H 131 H Lactic Acid Calcium Ionized Calcium Phosphorus Magnesium Total Bilirubin AST ALT Alkaline Phosphatase Ammonia Total Creatine Kinase CK-MB (CK-2) CK-MB (CK-2) Rel Index Total Protein Albumin Urine WBC (Auto) Vancomycin Trough Salicylates Acetaminophen Plasma/Serum Alcohol Crossmatch 12/25/19 12/25/19 12/25/19 03:47 05:30 12:23 WBC RBC Hgb Hct MCH RDW Plt Count Lymph % (Auto) [place] % (Auto) [place] # Baso # Seg Neutrophils % Seg Neuts % (Manual) Lymphocytes % (Manual) Monocytes % (Manual) Seg Neutrophils # Seg Neutrophils # Man Lymphocytes # (Manual) Monocytes # (Manual) Eosinophils # (Manual) Basophils # (Manual) PT INR APTT ABG pH ABG pO2 ABG HCO3 ABG O2 Saturation ABG Base Excess ABG Hemoglobin Oxyhemoglobin Sodium Potassium Chloride Carbon Dioxide 15 L BUN 70 H Creatinine 1.7 H Glucose 153 H POC Glucose 169 H 135 H Lactic Acid Calcium Ionized Calcium Phosphorus Magnesium Total Bilirubin AST ALT Alkaline Phosphatase Ammonia Total Creatine Kinase CK-MB (CK-2) CK-MB (CK-2) Rel Index Total Protein Albumin Urine WBC (Auto) Vancomycin Trough Salicylates Acetaminophen Plasma/Serum Alcohol Crossmatch 12/25/19 12/25/19 12/26/19 17:37 23:29 09:47 WBC 22.1 H RBC 2.83 L Hgb 7.9 L Hct 25.5 L MCH RDW 20.0 H Plt Count 894 H Lymph % (Auto) [place] % (Auto) [place] # Baso # Seg Neutrophils % Seg Neuts % (Manual) Lymphocytes % (Manual) Monocytes % (Manual) Seg Neutrophils # Seg Neutrophils # Man Lymphocytes # (Manual) Monocytes # (Manual) Eosinophils # (Manual) Basophils # (Manual) PT INR APTT ABG pH ABG pO2 ABG HCO3 ABG O2 Saturation ABG Base Excess ABG Hemoglobin Oxyhemoglobin Sodium Potassium Chloride Carbon Dioxide BUN Creatinine Glucose POC Glucose 120 H 140 H Lactic Acid Calcium Ionized Calcium Phosphorus Magnesium Total Bilirubin AST ALT Alkaline Phosphatase Ammonia Total Creatine Kinase CK-MB (CK-2) CK-MB (CK-2) Rel Index Total Protein Albumin Urine WBC (Auto) Vancomycin Trough Salicylates Acetaminophen Plasma/Serum Alcohol Crossmatch 12/26/19 12/26/19 12/26/19 09:47 11:46 17:52 WBC RBC Hgb Hct MCH RDW Plt Count Lymph % (Auto) [place] % (Auto) [place] # Baso # Seg Neutrophils % Seg Neuts % (Manual) Lymphocytes % (Manual) Monocytes % (Manual) Seg Neutrophils # Seg Neutrophils # Man Lymphocytes # (Manual) Monocytes # (Manual) Eosinophils # (Manual) Basophils # (Manual) PT INR APTT ABG pH ABG pO2 ABG HCO3 ABG O2 Saturation ABG Base Excess ABG Hemoglobin Oxyhemoglobin Sodium Potassium Chloride Carbon Dioxide 18 L BUN 65 H Creatinine 1.4 H Glucose 132 H POC Glucose 110 H 145 H Lactic Acid Calcium Ionized Calcium Phosphorus Magnesium Total Bilirubin AST ALT Alkaline Phosphatase Ammonia Total Creatine Kinase CK-MB (CK-2) CK-MB (CK-2) Rel Index Total Protein Albumin Urine WBC (Auto) Vancomycin Trough Salicylates Acetaminophen Plasma/Serum Alcohol Crossmatch 12/27/19 12/27/19 12/27/19 00:01 03:42 03:42 WBC 18.0 H RBC 2.86 L Hgb 8.0 L Hct 25.2 L MCH RDW 19.2 H Plt Count 873 H Lymph % (Auto) 8.4 L [place] % (Auto) 7.5 H [place] # 1.4 H Baso # 0.2 H Seg Neutrophils % 82.2 H Seg Neuts % (Manual) Lymphocytes % (Manual) Monocytes % (Manual) Seg Neutrophils # 14.8 H Seg Neutrophils # Man Lymphocytes # (Manual) Monocytes # (Manual) Eosinophils # (Manual) Basophils # (Manual) PT INR APTT ABG pH ABG pO2 ABG HCO3 ABG O2 Saturation ABG Base Excess ABG Hemoglobin Oxyhemoglobin Sodium Potassium Chloride Carbon Dioxide BUN 73 H Creatinine 1.4 H Glucose 119 H POC Glucose 124 H Lactic Acid Calcium Ionized Calcium Phosphorus Magnesium Total Bilirubin AST ALT Alkaline Phosphatase Ammonia Total Creatine Kinase CK-MB (CK-2) CK-MB (CK-2) Rel Index Total Protein Albumin Urine WBC (Auto) Vancomycin Trough Salicylates Acetaminophen Plasma/Serum Alcohol Crossmatch 12/27/19 12/27/19 12/27/19 05:45 11:45 17:29 WBC RBC Hgb Hct MCH RDW Plt Count Lymph % (Auto) [place] % (Auto) [place] # Baso # Seg Neutrophils % Seg Neuts % (Manual) Lymphocytes % (Manual) Monocytes % (Manual) Seg Neutrophils # Seg Neutrophils # Man Lymphocytes # (Manual) Monocytes # (Manual) Eosinophils # (Manual) Basophils # (Manual) PT INR APTT ABG pH ABG pO2 ABG HCO3 ABG O2 Saturation ABG Base Excess ABG Hemoglobin Oxyhemoglobin Sodium Potassium Chloride Carbon Dioxide BUN Creatinine Glucose POC Glucose 131 H 123 H 134 H Lactic Acid Calcium Ionized Calcium Phosphorus Magnesium Total Bilirubin AST ALT Alkaline Phosphatase Ammonia Total Creatine Kinase CK-MB (CK-2) CK-MB (CK-2) Rel Index Total Protein Albumin Urine WBC (Auto) Vancomycin Trough Salicylates Acetaminophen Plasma/Serum Alcohol Crossmatch 12/28/19 12/28/19 12/28/19 00:12 05:14 11:53 WBC RBC Hgb Hct MCH RDW Plt Count Lymph % (Auto) [place] % (Auto) [place] # Baso # Seg Neutrophils % Seg Neuts % (Manual) Lymphocytes % (Manual) Monocytes % (Manual) Seg Neutrophils # Seg Neutrophils # Man Lymphocytes # (Manual) Monocytes # (Manual) Eosinophils # (Manual) Basophils # (Manual) PT INR APTT ABG pH ABG pO2 ABG HCO3 ABG O2 Saturation ABG Base Excess ABG Hemoglobin Oxyhemoglobin Sodium Potassium Chloride Carbon Dioxide BUN Creatinine Glucose POC Glucose 138 H 130 H 146 H Lactic Acid Calcium Ionized Calcium Phosphorus Magnesium Total Bilirubin AST ALT Alkaline Phosphatase Ammonia Total Creatine Kinase CK-MB (CK-2) CK-MB (CK-2) Rel Index Total Protein Albumin Urine WBC (Auto) Vancomycin Trough Salicylates Acetaminophen Plasma/Serum Alcohol Crossmatch 12/28/19 12/29/19 12/29/19 17:39 00:01 18:11 WBC RBC Hgb Hct MCH RDW Plt Count Lymph % (Auto) [place] % (Auto) [place] # Baso # Seg Neutrophils % Seg Neuts % (Manual) Lymphocytes % (Manual) Monocytes % (Manual) Seg Neutrophils # Seg Neutrophils # Man Lymphocytes # (Manual) Monocytes # (Manual) Eosinophils # (Manual) Basophils # (Manual) PT INR APTT ABG pH ABG pO2 ABG HCO3 ABG O2 Saturation ABG Base Excess ABG Hemoglobin Oxyhemoglobin Sodium Potassium Chloride Carbon Dioxide BUN Creatinine Glucose POC Glucose 117 H 139 H 130 H Lactic Acid Calcium Ionized Calcium Phosphorus Magnesium Total Bilirubin AST ALT Alkaline Phosphatase Ammonia Total Creatine Kinase CK-MB (CK-2) CK-MB (CK-2) Rel Index Total Protein Albumin Urine WBC (Auto) Vancomycin Trough Salicylates Acetaminophen Plasma/Serum Alcohol Crossmatch 12/29/19 12/30/19 12/30/19 23:09 00:02 01:06 WBC 16.7 H RBC 2.91 L Hgb 8.2 L Hct 25.4 L MCH RDW 18.7 H Plt Count 708 H Lymph % (Auto) 9.4 L [place] % (Auto) [place] # 0.9 H Baso # Seg Neutrophils % 83.5 H Seg Neuts % (Manual) Lymphocytes % (Manual) Monocytes % (Manual) Seg Neutrophils # 14.0 H Seg Neutrophils # Man Lymphocytes # (Manual) Monocytes # (Manual) Eosinophils # (Manual) Basophils # (Manual) PT INR APTT ABG pH ABG pO2 ABG HCO3 ABG O2 Saturation ABG Base Excess ABG Hemoglobin Oxyhemoglobin Sodium Potassium Chloride Carbon Dioxide BUN Creatinine Glucose POC Glucose 120 H 114 H Lactic Acid Calcium Ionized Calcium Phosphorus Magnesium Total Bilirubin AST ALT Alkaline Phosphatase Ammonia Total Creatine Kinase CK-MB (CK-2) CK-MB (CK-2) Rel Index Total Protein Albumin Urine WBC (Auto) Vancomycin Trough Salicylates Acetaminophen Plasma/Serum Alcohol Crossmatch 12/30/19 12/30/19 12/30/19 01:06 04:23 05:18 WBC RBC Hgb Hct MCH RDW Plt Count Lymph % (Auto) [place] % (Auto) [place] # Baso # Seg Neutrophils % Seg Neuts % (Manual) Lymphocytes % (Manual) Monocytes % (Manual) Seg Neutrophils # Seg Neutrophils # Man Lymphocytes # (Manual) Monocytes # (Manual) Eosinophils # (Manual) Basophils # (Manual) PT INR APTT ABG pH ABG pO2 ABG HCO3 ABG O2 Saturation ABG Base Excess ABG Hemoglobin 8.3 L Oxyhemoglobin Sodium Potassium Chloride Carbon Dioxide BUN 70 H Creatinine Glucose 122 H POC Glucose 130 H Lactic Acid Calcium Ionized Calcium Phosphorus Magnesium Total Bilirubin AST ALT Alkaline Phosphatase Ammonia Total Creatine Kinase CK-MB (CK-2) CK-MB (CK-2) Rel Index Total Protein Albumin Urine WBC (Auto) Vancomycin Trough Salicylates Acetaminophen Plasma/Serum Alcohol Crossmatch 12/30/19 12/30/19 12/30/19 05:40 12:17 17:43 WBC RBC Hgb Hct MCH RDW Plt Count Lymph % (Auto) [place] % (Auto) [place] # Baso # Seg Neutrophils % Seg Neuts % (Manual) Lymphocytes % (Manual) Monocytes % (Manual) Seg Neutrophils # Seg Neutrophils # Man Lymphocytes # (Manual) Monocytes # (Manual) Eosinophils # (Manual) Basophils # (Manual) PT INR APTT ABG pH ABG pO2 ABG HCO3 ABG O2 Saturation ABG Base Excess ABG Hemoglobin Oxyhemoglobin Sodium Potassium Chloride Carbon Dioxide BUN Creatinine Glucose POC Glucose 135 H 132 H 118 H Lactic Acid Calcium Ionized Calcium Phosphorus Magnesium Total Bilirubin AST ALT Alkaline Phosphatase Ammonia Total Creatine Kinase CK-MB (CK-2) CK-MB (CK-2) Rel Index Total Protein Albumin Urine WBC (Auto) Vancomycin Trough Salicylates Acetaminophen Plasma/Serum Alcohol Crossmatch 12/30/19 12/31/19 12/31/19 23:29 05:19 17:50 WBC RBC Hgb Hct MCH RDW Plt Count Lymph % (Auto) [place] % (Auto) [place] # Baso # Seg Neutrophils % Seg Neuts % (Manual) Lymphocytes % (Manual) Monocytes % (Manual) Seg Neutrophils # Seg Neutrophils # Man Lymphocytes # (Manual) Monocytes # (Manual) Eosinophils # (Manual) Basophils # (Manual) PT INR APTT ABG pH ABG pO2 ABG HCO3 ABG O2 Saturation ABG Base Excess ABG Hemoglobin Oxyhemoglobin Sodium Potassium Chloride Carbon Dioxide BUN Creatinine Glucose POC Glucose 114 H 109 H 116 H Lactic Acid Calcium Ionized Calcium Phosphorus Magnesium Total Bilirubin AST ALT Alkaline Phosphatase Ammonia Total Creatine Kinase CK-MB (CK-2) CK-MB (CK-2) Rel Index Total Protein Albumin Urine WBC (Auto) Vancomycin Trough Salicylates Acetaminophen Plasma/Serum Alcohol Crossmatch 01/01/20 01/01/20 01/01/20 00:10 05:19 12:02 WBC RBC Hgb Hct MCH RDW Plt Count Lymph % (Auto) [place] % (Auto) [place] # Baso # Seg Neutrophils % Seg Neuts % (Manual) Lymphocytes % (Manual) Monocytes % (Manual) Seg Neutrophils # Seg Neutrophils # Man Lymphocytes # (Manual) Monocytes # (Manual) Eosinophils # (Manual) Basophils # (Manual) PT INR APTT ABG pH ABG pO2 ABG HCO3 ABG O2 Saturation ABG Base Excess ABG Hemoglobin Oxyhemoglobin Sodium Potassium Chloride Carbon Dioxide BUN Creatinine Glucose POC Glucose 131 H 122 H 136 H Lactic Acid Calcium Ionized Calcium Phosphorus Magnesium Total Bilirubin AST ALT Alkaline Phosphatase Ammonia Total Creatine Kinase CK-MB (CK-2) CK-MB (CK-2) Rel Index Total Protein Albumin Urine WBC (Auto) Vancomycin Trough Salicylates Acetaminophen Plasma/Serum Alcohol Crossmatch 01/02/20 01/02/20 01/02/20 00:24 05:36 11:41 WBC RBC Hgb Hct MCH RDW Plt Count Lymph % (Auto) [place] % (Auto) [place] # Baso # Seg Neutrophils % Seg Neuts % (Manual) Lymphocytes % (Manual) Monocytes % (Manual) Seg Neutrophils # Seg Neutrophils # Man Lymphocytes # (Manual) Monocytes # (Manual) Eosinophils # (Manual) Basophils # (Manual) PT INR APTT ABG pH ABG pO2 ABG HCO3 ABG O2 Saturation ABG Base Excess ABG Hemoglobin Oxyhemoglobin Sodium Potassium Chloride Carbon Dioxide BUN Creatinine Glucose POC Glucose 119 H 109 H 125 H Lactic Acid Calcium Ionized Calcium Phosphorus Magnesium Total Bilirubin AST ALT Alkaline Phosphatase Ammonia Total Creatine Kinase CK-MB (CK-2) CK-MB (CK-2) Rel Index Total Protein Albumin Urine WBC (Auto) Vancomycin Trough Salicylates Acetaminophen Plasma/Serum Alcohol Crossmatch 01/02/20 01/03/20 01/03/20 17:49 05:29 12:13 WBC RBC Hgb Hct MCH RDW Plt Count Lymph % (Auto) [place] % (Auto) [place] # Baso # Seg Neutrophils % Seg Neuts % (Manual) Lymphocytes % (Manual) Monocytes % (Manual) Seg Neutrophils # Seg Neutrophils # Man Lymphocytes # (Manual) Monocytes # (Manual) Eosinophils # (Manual) Basophils # (Manual) PT INR APTT ABG pH ABG pO2 ABG HCO3 ABG O2 Saturation ABG Base Excess ABG Hemoglobin Oxyhemoglobin Sodium Potassium Chloride Carbon Dioxide BUN Creatinine Glucose POC Glucose 130 H 132 H 113 H Lactic Acid Calcium Ionized Calcium Phosphorus Magnesium Total Bilirubin AST ALT Alkaline Phosphatase Ammonia Total Creatine Kinase CK-MB (CK-2) CK-MB (CK-2) Rel Index Total Protein Albumin Urine WBC (Auto) Vancomycin Trough Salicylates Acetaminophen Plasma/Serum Alcohol Crossmatch 01/03/20 01/04/20 01/04/20 17:32 00:19 05:26 WBC RBC Hgb Hct MCH RDW Plt Count Lymph % (Auto) [place] % (Auto) [place] # Baso # Seg Neutrophils % Seg Neuts % (Manual) Lymphocytes % (Manual) Monocytes % (Manual) Seg Neutrophils # Seg Neutrophils # Man Lymphocytes # (Manual) Monocytes # (Manual) Eosinophils # (Manual) Basophils # (Manual) PT INR APTT ABG pH ABG pO2 ABG HCO3 ABG O2 Saturation ABG Base Excess ABG Hemoglobin Oxyhemoglobin Sodium Potassium Chloride Carbon Dioxide BUN Creatinine Glucose POC Glucose 127 H 141 H 129 H Lactic Acid Calcium Ionized Calcium Phosphorus Magnesium Total Bilirubin AST ALT Alkaline Phosphatase Ammonia Total Creatine Kinase CK-MB (CK-2) CK-MB (CK-2) Rel Index Total Protein Albumin Urine WBC (Auto) Vancomycin Trough Salicylates Acetaminophen Plasma/Serum Alcohol Crossmatch 01/04/20 01/04/20 01/05/20 11:39 17:29 05:22 WBC RBC Hgb Hct MCH RDW Plt Count Lymph % (Auto) [place] % (Auto) [place] # Baso # Seg Neutrophils % Seg Neuts % (Manual) Lymphocytes % (Manual) Monocytes % (Manual) Seg Neutrophils # Seg Neutrophils # Man Lymphocytes # (Manual) Monocytes # (Manual) Eosinophils # (Manual) Basophils # (Manual) PT INR APTT ABG pH ABG pO2 ABG HCO3 ABG O2 Saturation ABG Base Excess ABG Hemoglobin Oxyhemoglobin Sodium Potassium Chloride Carbon Dioxide BUN Creatinine Glucose POC Glucose 167 H 132 H 121 H Lactic Acid Calcium Ionized Calcium Phosphorus Magnesium Total Bilirubin AST ALT Alkaline Phosphatase Ammonia Total Creatine Kinase CK-MB (CK-2) CK-MB (CK-2) Rel Index Total Protein Albumin Urine WBC (Auto) Vancomycin Trough Salicylates Acetaminophen Plasma/Serum Alcohol Crossmatch 0401/05/20 01/05/20 12:25 17:40 18:06 WBC RBC Hgb Hct MCH RDW Plt Count Lymph % (Auto) [place] % (Auto) [place] # Baso # Seg Neutrophils % Seg Neuts % (Manual) Lymphocytes % (Manual) Monocytes % (Manual) Seg Neutrophils # Seg Neutrophils # Man Lymphocytes # (Manual) Monocytes # (Manual) Eosinophils # (Manual) Basophils # (Manual) PT INR APTT ABG pH 7.472 H ABG pO2 99.2 H ABG HCO3 ABG O2 Saturation ABG Base Excess ABG Hemoglobin 7.8 L Oxyhemoglobin Sodium Potassium Chloride Carbon Dioxide BUN Creatinine Glucose POC Glucose 106 H 110 H Lactic Acid Calcium Ionized Calcium Phosphorus Magnesium Total Bilirubin AST ALT Alkaline Phosphatase Ammonia Total Creatine Kinase CK-MB (CK-2) CK-MB (CK-2) Rel Index Total Protein Albumin Urine WBC (Auto) Vancomycin Trough Salicylates Acetaminophen Plasma/Serum Alcohol Crossmatch 01/06/20 01/06/20 01/06/20 00:11 05:16 11:30 WBC RBC Hgb Hct MCH RDW Plt Count Lymph % (Auto) [place] % (Auto) [place] # Baso # Seg Neutrophils % Seg Neuts % (Manual) Lymphocytes % (Manual) Monocytes % (Manual) Seg Neutrophils # Seg Neutrophils # Man Lymphocytes # (Manual) Monocytes # (Manual) Eosinophils # (Manual) Basophils # (Manual) PT INR APTT ABG pH ABG pO2 ABG HCO3 ABG O2 Saturation ABG Base Excess ABG Hemoglobin Oxyhemoglobin Sodium Potassium Chloride Carbon Dioxide BUN Creatinine Glucose POC Glucose 108 H 124 H 125 H Lactic Acid Calcium Ionized Calcium Phosphorus Magnesium Total Bilirubin AST ALT Alkaline Phosphatase Ammonia Total Creatine Kinase CK-MB (CK-2) CK-MB (CK-2) Rel Index Total Protein Albumin Urine WBC (Auto) Vancomycin Trough Salicylates Acetaminophen Plasma/Serum Alcohol Crossmatch 01/06/20 01/06/20 01/07/20 17:53 23:51 04:12 WBC 16.5 H RBC 3.29 L Hgb 9.3 L Hct 28.1 L MCH RDW 18.2 H Plt Count 526 H Lymph % (Auto) 8.4 L [place] % (Auto) [place] # 1.0 H Baso # Seg Neutrophils % 84.4 H Seg Neuts % (Manual) Lymphocytes % (Manual) Monocytes % (Manual) Seg Neutrophils # 13.9 H Seg Neutrophils # Man Lymphocytes # (Manual) Monocytes # (Manual) Eosinophils # (Manual) Basophils # (Manual) PT INR APTT ABG pH ABG pO2 ABG HCO3 ABG O2 Saturation ABG Base Excess ABG Hemoglobin Oxyhemoglobin Sodium Potassium Chloride Carbon Dioxide BUN Creatinine Glucose POC Glucose 166 H 128 H Lactic Acid Calcium Ionized Calcium Phosphorus Magnesium Total Bilirubin AST ALT Alkaline Phosphatase Ammonia Total Creatine Kinase CK-MB (CK-2) CK-MB (CK-2) Rel Index Total Protein Albumin Urine WBC (Auto) Vancomycin Trough Salicylates Acetaminophen Plasma/Serum Alcohol Crossmatch 01/07/20 01/07/20 01/07/20 04:12 04:45 11:51 WBC RBC Hgb Hct MCH RDW Plt Count Lymph % (Auto) [place] % (Auto) [place] # Baso # Seg Neutrophils % Seg Neuts % (Manual) Lymphocytes % (Manual) Monocytes % (Manual) Seg Neutrophils # Seg Neutrophils # Man Lymphocytes # (Manual) Monocytes # (Manual) Eosinophils # (Manual) Basophils # (Manual) PT INR APTT ABG pH ABG pO2 ABG HCO3 ABG O2 Saturation ABG Base Excess ABG Hemoglobin Oxyhemoglobin Sodium 136 L Potassium Chloride Carbon Dioxide 21 L BUN 44 H Creatinine 0.6 L Glucose 124 H POC Glucose 134 H 138 H Lactic Acid Calcium Ionized Calcium Phosphorus Magnesium Total Bilirubin AST ALT Alkaline Phosphatase Ammonia Total Creatine Kinase CK-MB (CK-2) CK-MB (CK-2) Rel Index Total Protein Albumin Urine WBC (Auto) Vancomycin Trough Salicylates Acetaminophen Plasma/Serum Alcohol Crossmatch 01/07/20 01/08/20 01/08/20 17:36 00:33 05:29 WBC RBC Hgb Hct MCH RDW Plt Count Lymph % (Auto) [place] % (Auto) [place] # Baso # Seg Neutrophils % Seg Neuts % (Manual) Lymphocytes % (Manual) Monocytes % (Manual) Seg Neutrophils # Seg Neutrophils # Man Lymphocytes # (Manual) Monocytes # (Manual) Eosinophils # (Manual) Basophils # (Manual) PT INR APTT ABG pH ABG pO2 ABG HCO3 ABG O2 Saturation ABG Base Excess ABG Hemoglobin Oxyhemoglobin Sodium Potassium Chloride Carbon Dioxide BUN Creatinine Glucose POC Glucose 128 H 119 H 124 H Lactic Acid Calcium Ionized Calcium Phosphorus Magnesium Total Bilirubin AST ALT Alkaline Phosphatase Ammonia Total Creatine Kinase CK-MB (CK-2) CK-MB (CK-2) Rel Index Total Protein Albumin Urine WBC (Auto) Vancomycin Trough Salicylates Acetaminophen Plasma/Serum Alcohol Crossmatch 01/08/20 01/08/20 01/08/20 12:51 20:25 23:22 WBC RBC Hgb Hct MCH RDW Plt Count Lymph % (Auto) [place] % (Auto) [place] # Baso # Seg Neutrophils % Seg Neuts % (Manual) Lymphocytes % (Manual) Monocytes % (Manual) Seg Neutrophils # Seg Neutrophils # Man Lymphocytes # (Manual) Monocytes # (Manual) Eosinophils # (Manual) Basophils # (Manual) PT INR APTT ABG pH ABG pO2 132.2 H ABG HCO3 ABG O2 Saturation ABG Base Excess ABG Hemoglobin Oxyhemoglobin Sodium Potassium Chloride Carbon Dioxide BUN Creatinine Glucose POC Glucose 128 H 127 H Lactic Acid Calcium Ionized Calcium Phosphorus Magnesium Total Bilirubin AST ALT Alkaline Phosphatase Ammonia Total Creatine Kinase CK-MB (CK-2) CK-MB (CK-2) Rel Index Total Protein Albumin Urine WBC (Auto) Vancomycin Trough Salicylates Acetaminophen Plasma/Serum Alcohol Crossmatch 01/09/20 01/09/20 01/09/20 05:48 08:51 11:29 WBC RBC Hgb Hct MCH RDW Plt Count Lymph % (Auto) [place] % (Auto) [place] # Baso # Seg Neutrophils % Seg Neuts % (Manual) Lymphocytes % (Manual) Monocytes % (Manual) Seg Neutrophils # Seg Neutrophils # Man Lymphocytes # (Manual) Monocytes # (Manual) Eosinophils # (Manual) Basophils # (Manual) PT INR APTT ABG pH ABG pO2 94.3 H ABG HCO3 ABG O2 Saturation ABG Base Excess ABG Hemoglobin 9.5 L Oxyhemoglobin Sodium Potassium Chloride Carbon Dioxide BUN Creatinine Glucose POC Glucose 120 H 112 H Lactic Acid Calcium Ionized Calcium Phosphorus Magnesium Total Bilirubin AST ALT Alkaline Phosphatase Ammonia Total Creatine Kinase CK-MB (CK-2) CK-MB (CK-2) Rel Index Total Protein Albumin Urine WBC (Auto) Vancomycin Trough Salicylates Acetaminophen Plasma/Serum Alcohol Crossmatch 01/09/20 01/10/20 01/10/20 17:57 05:17 12:28 WBC RBC Hgb Hct MCH RDW Plt Count Lymph % (Auto) [place] % (Auto) [place] # Baso # Seg Neutrophils % Seg Neuts % (Manual) Lymphocytes % (Manual) Monocytes % (Manual) Seg Neutrophils # Seg Neutrophils # Man Lymphocytes # (Manual) Monocytes # (Manual) Eosinophils # (Manual) Basophils # (Manual) PT INR APTT ABG pH ABG pO2 ABG HCO3 ABG O2 Saturation ABG Base Excess ABG Hemoglobin Oxyhemoglobin Sodium Potassium Chloride Carbon Dioxide BUN Creatinine Glucose POC Glucose 122 H 115 H 116 H Lactic Acid Calcium Ionized Calcium Phosphorus Magnesium Total Bilirubin AST ALT Alkaline Phosphatase Ammonia Total Creatine Kinase CK-MB (CK-2) CK-MB (CK-2) Rel Index Total Protein Albumin Urine WBC (Auto) Vancomycin Trough Salicylates Acetaminophen Plasma/Serum Alcohol Crossmatch 01/10/20 01/10/20 01/11/20 18:25 23:47 06:05 WBC RBC Hgb Hct MCH RDW Plt Count Lymph % (Auto) [place] % (Auto) [place] # Baso # Seg Neutrophils % Seg Neuts % (Manual) Lymphocytes % (Manual) Monocytes % (Manual) Seg Neutrophils # Seg Neutrophils # Man Lymphocytes # (Manual) Monocytes # (Manual) Eosinophils # (Manual) Basophils # (Manual) PT INR APTT ABG pH ABG pO2 ABG HCO3 ABG O2 Saturation ABG Base Excess ABG Hemoglobin Oxyhemoglobin Sodium Potassium Chloride Carbon Dioxide BUN Creatinine Glucose POC Glucose 123 H 115 H 151 H Lactic Acid Calcium Ionized Calcium Phosphorus Magnesium Total Bilirubin AST ALT Alkaline Phosphatase Ammonia Total Creatine Kinase CK-MB (CK-2) CK-MB (CK-2) Rel Index Total Protein Albumin Urine WBC (Auto) Vancomycin Trough Salicylates Acetaminophen Plasma/Serum Alcohol Crossmatch 01/11/20 01/11/20 01/11/20 07:00 07:00 12:27 WBC 11.8 H RBC 3.40 L Hgb 9.4 L Hct 29.3 L MCH RDW 18.1 H Plt Count 549 H Lymph % (Auto) [place] % (Auto) 9.1 H [place] # 1.1 H Baso # Seg Neutrophils % 73.3 H Seg Neuts % (Manual) Lymphocytes % (Manual) Monocytes % (Manual) Seg Neutrophils # 8.7 H Seg Neutrophils # Man Lymphocytes # (Manual) Monocytes # (Manual) Eosinophils # (Manual) Basophils # (Manual) PT INR APTT ABG pH ABG pO2 ABG HCO3 ABG O2 Saturation ABG Base Excess ABG Hemoglobin Oxyhemoglobin Sodium 134 L Potassium Chloride 97.7 L Carbon Dioxide 21 L BUN 38 H Creatinine 0.5 L Glucose 168 H POC Glucose 117 H Lactic Acid Calcium 10.5 H Ionized Calcium Phosphorus Magnesium Total Bilirubin AST ALT Alkaline Phosphatase Ammonia Total Creatine Kinase CK-MB (CK-2) CK-MB (CK-2) Rel Index Total Protein Albumin Urine WBC (Auto) Vancomycin Trough Salicylates Acetaminophen Plasma/Serum Alcohol Crossmatch 01/11/20 01/12/20 01/12/20 18:19 00:53 05:24 WBC RBC Hgb Hct MCH RDW Plt Count Lymph % (Auto) [place] % (Auto) [place] # Baso # Seg Neutrophils % Seg Neuts % (Manual) Lymphocytes % (Manual) Monocytes % (Manual) Seg Neutrophils # Seg Neutrophils # Man Lymphocytes # (Manual) Monocytes # (Manual) Eosinophils # (Manual) Basophils # (Manual) PT INR APTT ABG pH ABG pO2 ABG HCO3 ABG O2 Saturation ABG Base Excess ABG Hemoglobin Oxyhemoglobin Sodium Potassium Chloride Carbon Dioxide BUN Creatinine Glucose POC Glucose 126 H 126 H 128 H Lactic Acid Calcium Ionized Calcium Phosphorus Magnesium Total Bilirubin AST ALT Alkaline Phosphatase Ammonia Total Creatine Kinase CK-MB (CK-2) CK-MB (CK-2) Rel Index Total Protein Albumin Urine WBC (Auto) Vancomycin Trough Salicylates Acetaminophen Plasma/Serum Alcohol Crossmatch 01/12/20 01/12/20 01/13/20 13:39 18:02 00:27 WBC RBC Hgb Hct MCH RDW Plt Count Lymph % (Auto) [place] % (Auto) [place] # Baso # Seg Neutrophils % Seg Neuts % (Manual) Lymphocytes % (Manual) Monocytes % (Manual) Seg Neutrophils # Seg Neutrophils # Man Lymphocytes # (Manual) Monocytes # (Manual) Eosinophils # (Manual) Basophils # (Manual) PT INR APTT ABG pH ABG pO2 ABG HCO3 ABG O2 Saturation ABG Base Excess ABG Hemoglobin Oxyhemoglobin Sodium Potassium Chloride Carbon Dioxide BUN Creatinine Glucose POC Glucose 146 H 125 H 131 H Lactic Acid Calcium Ionized Calcium Phosphorus Magnesium Total Bilirubin AST ALT Alkaline Phosphatase Ammonia Total Creatine Kinase CK-MB (CK-2) CK-MB (CK-2) Rel Index Total Protein Albumin Urine WBC (Auto) Vancomycin Trough Salicylates Acetaminophen Plasma/Serum Alcohol Crossmatch 01/13/20 01/13/20 01/13/20 05:44 11:54 17:18 WBC RBC Hgb Hct MCH RDW Plt Count Lymph % (Auto) [place] % (Auto) [place] # Baso # Seg Neutrophils % Seg Neuts % (Manual) Lymphocytes % (Manual) Monocytes % (Manual) Seg Neutrophils # Seg Neutrophils # Man Lymphocytes # (Manual) Monocytes # (Manual) Eosinophils # (Manual) Basophils # (Manual) PT INR APTT ABG pH ABG pO2 ABG HCO3 ABG O2 Saturation ABG Base Excess ABG Hemoglobin Oxyhemoglobin Sodium Potassium Chloride Carbon Dioxide BUN Creatinine Glucose POC Glucose 148 H 140 H 130 H Lactic Acid Calcium Ionized Calcium Phosphorus Magnesium Total Bilirubin AST ALT Alkaline Phosphatase Ammonia Total Creatine Kinase CK-MB (CK-2) CK-MB (CK-2) Rel Index Total Protein Albumin Urine WBC (Auto) Vancomycin Trough Salicylates Acetaminophen Plasma/Serum Alcohol Crossmatch 01/14/20 01/14/20 01/14/20 00:16 05:45 12:19 WBC RBC Hgb Hct MCH RDW Plt Count Lymph % (Auto) [place] % (Auto) [place] # Baso # Seg Neutrophils % Seg Neuts % (Manual) Lymphocytes % (Manual) Monocytes % (Manual) Seg Neutrophils # Seg Neutrophils # Man Lymphocytes # (Manual) Monocytes # (Manual) Eosinophils # (Manual) Basophils # (Manual) PT INR APTT ABG pH ABG pO2 ABG HCO3 ABG O2 Saturation ABG Base Excess ABG Hemoglobin Oxyhemoglobin Sodium Potassium Chloride Carbon Dioxide BUN Creatinine Glucose POC Glucose 125 H 146 H 147 H Lactic Acid Calcium Ionized Calcium Phosphorus Magnesium Total Bilirubin AST ALT Alkaline Phosphatase Ammonia Total Creatine Kinase CK-MB (CK-2) CK-MB (CK-2) Rel Index Total Protein Albumin Urine WBC (Auto) Vancomycin Trough Salicylates Acetaminophen Plasma/Serum Alcohol Crossmatch 01/14/20 01/14/20 01/15/20 18:10 23:54 05:14 WBC RBC Hgb Hct MCH RDW Plt Count Lymph % (Auto) [place] % (Auto) [place] # Baso # Seg Neutrophils % Seg Neuts % (Manual) Lymphocytes % (Manual) Monocytes % (Manual) Seg Neutrophils # Seg Neutrophils # Man Lymphocytes # (Manual) Monocytes # (Manual) Eosinophils # (Manual) Basophils # (Manual) PT INR APTT ABG pH ABG pO2 ABG HCO3 ABG O2 Saturation ABG Base Excess ABG Hemoglobin Oxyhemoglobin Sodium Potassium Chloride Carbon Dioxide BUN Creatinine Glucose POC Glucose 136 H 109 H 111 H Lactic Acid Calcium Ionized Calcium Phosphorus Magnesium Total Bilirubin AST ALT Alkaline Phosphatase Ammonia Total Creatine Kinase CK-MB (CK-2) CK-MB (CK-2) Rel Index Total Protein Albumin Urine WBC (Auto) Vancomycin Trough Salicylates Acetaminophen Plasma/Serum Alcohol Crossmatch 01/15/20 01/15/20 01/16/20 12:34 23:25 05:06 WBC RBC Hgb Hct MCH RDW Plt Count Lymph % (Auto) [place] % (Auto) [place] # Baso # Seg Neutrophils % Seg Neuts % (Manual) Lymphocytes % (Manual) Monocytes % (Manual) Seg Neutrophils # Seg Neutrophils # Man Lymphocytes # (Manual) Monocytes # (Manual) Eosinophils # (Manual) Basophils # (Manual) PT INR APTT ABG pH ABG pO2 ABG HCO3 ABG O2 Saturation ABG Base Excess ABG Hemoglobin Oxyhemoglobin Sodium Potassium Chloride Carbon Dioxide BUN Creatinine Glucose POC Glucose 131 H 120 H 121 H Lactic Acid Calcium Ionized Calcium Phosphorus Magnesium Total Bilirubin AST ALT Alkaline Phosphatase Ammonia Total Creatine Kinase CK-MB (CK-2) CK-MB (CK-2) Rel Index Total Protein Albumin Urine WBC (Auto) Vancomycin Trough Salicylates Acetaminophen Plasma/Serum Alcohol Crossmatch 01/16/20 01/16/20 01/17/20 12:15 23:46 05:32 WBC 13.6 H RBC 3.27 L Hgb 9.3 L Hct 28.5 L MCH RDW 17.0 H Plt Count 490 H Lymph % (Auto) 13.1 L [place] % (Auto) [place] # 1.0 H Baso # Seg Neutrophils % 77.5 H Seg Neuts % (Manual) Lymphocytes % (Manual) Monocytes % (Manual) Seg Neutrophils # 10.5 H Seg Neutrophils # Man Lymphocytes # (Manual) Monocytes # (Manual) Eosinophils # (Manual) Basophils # (Manual) PT INR APTT ABG pH ABG pO2 ABG HCO3 ABG O2 Saturation ABG Base Excess ABG Hemoglobin Oxyhemoglobin Sodium Potassium Chloride Carbon Dioxide BUN Creatinine Glucose POC Glucose 152 H 107 H Lactic Acid Calcium Ionized Calcium Phosphorus Magnesium Total Bilirubin AST ALT Alkaline Phosphatase Ammonia Total Creatine Kinase CK-MB (CK-2) CK-MB (CK-2) Rel Index Total Protein Albumin Urine WBC (Auto) Vancomycin Trough Salicylates Acetaminophen Plasma/Serum Alcohol Crossmatch 01/17/20 01/17/20 01/17/20 06:47 12:16 17:21 WBC RBC Hgb Hct MCH RDW Plt Count Lymph % (Auto) [place] % (Auto) [place] # Baso # Seg Neutrophils % Seg Neuts % (Manual) Lymphocytes % (Manual) Monocytes % (Manual) Seg Neutrophils # Seg Neutrophils # Man Lymphocytes # (Manual) Monocytes # (Manual) Eosinophils # (Manual) Basophils # (Manual) PT INR APTT ABG pH ABG pO2 ABG HCO3 ABG O2 Saturation ABG Base Excess ABG Hemoglobin Oxyhemoglobin Sodium Potassium Chloride Carbon Dioxide BUN Creatinine Glucose POC Glucose 112 H 145 H 150 H Lactic Acid Calcium Ionized Calcium Phosphorus Magnesium Total Bilirubin AST ALT Alkaline Phosphatase Ammonia Total Creatine Kinase CK-MB (CK-2) CK-MB (CK-2) Rel Index Total Protein Albumin Urine WBC (Auto) Vancomycin Trough Salicylates Acetaminophen Plasma/Serum Alcohol Crossmatch 01/17/20 01/18/20 01/18/20 23:34 05:47 12:43 WBC RBC Hgb Hct MCH RDW Plt Count Lymph % (Auto) [place] % (Auto) [place] # Baso # Seg Neutrophils % Seg Neuts % (Manual) Lymphocytes % (Manual) Monocytes % (Manual) Seg Neutrophils # Seg Neutrophils # Man Lymphocytes # (Manual) Monocytes # (Manual) Eosinophils # (Manual) Basophils # (Manual) PT INR APTT ABG pH ABG pO2 ABG HCO3 ABG O2 Saturation ABG Base Excess ABG Hemoglobin Oxyhemoglobin Sodium Potassium Chloride Carbon Dioxide BUN Creatinine Glucose POC Glucose 160 H 130 H 124 H Lactic Acid Calcium Ionized Calcium Phosphorus Magnesium Total Bilirubin AST ALT Alkaline Phosphatase Ammonia Total Creatine Kinase CK-MB (CK-2) CK-MB (CK-2) Rel Index Total Protein Albumin Urine WBC (Auto) Vancomycin Trough Salicylates Acetaminophen Plasma/Serum Alcohol Crossmatch 01/18/20 01/19/20 01/19/20 18:26 00:14 06:24 WBC RBC Hgb Hct MCH RDW Plt Count Lymph % (Auto) [place] % (Auto) [place] # Baso # Seg Neutrophils % Seg Neuts % (Manual) Lymphocytes % (Manual) Monocytes % (Manual) Seg Neutrophils # Seg Neutrophils # Man Lymphocytes # (Manual) Monocytes # (Manual) Eosinophils # (Manual) Basophils # (Manual) PT INR APTT ABG pH ABG pO2 ABG HCO3 ABG O2 Saturation ABG Base Excess ABG Hemoglobin Oxyhemoglobin Sodium Potassium Chloride Carbon Dioxide BUN Creatinine Glucose POC Glucose 119 H 114 H 144 H Lactic Acid Calcium Ionized Calcium Phosphorus Magnesium Total Bilirubin AST ALT Alkaline Phosphatase Ammonia Total Creatine Kinase CK-MB (CK-2) CK-MB (CK-2) Rel Index Total Protein Albumin Urine WBC (Auto) Vancomycin Trough Salicylates Acetaminophen Plasma/Serum Alcohol Crossmatch 01/19/20 01/19/20 01/20/20 12:24 17:50 12:06 WBC RBC Hgb Hct MCH RDW Plt Count Lymph % (Auto) [place] % (Auto) [place] # Baso # Seg Neutrophils % Seg Neuts % (Manual) Lymphocytes % (Manual) Monocytes % (Manual) Seg Neutrophils # Seg Neutrophils # Man Lymphocytes # (Manual) Monocytes # (Manual) Eosinophils # (Manual) Basophils # (Manual) PT INR APTT ABG pH ABG pO2 ABG HCO3 ABG O2 Saturation ABG Base Excess ABG Hemoglobin Oxyhemoglobin Sodium Potassium Chloride Carbon Dioxide BUN Creatinine Glucose POC Glucose 132 H 144 H 135 H Lactic Acid Calcium Ionized Calcium Phosphorus Magnesium Total Bilirubin AST ALT Alkaline Phosphatase Ammonia Total Creatine Kinase CK-MB (CK-2) CK-MB (CK-2) Rel Index Total Protein Albumin Urine WBC (Auto) Vancomycin Trough Salicylates Acetaminophen Plasma/Serum Alcohol Crossmatch 01/21/20 01/21/20 01/21/20 05:46 13:02 23:49 WBC RBC Hgb Hct MCH RDW Plt Count Lymph % (Auto) [place] % (Auto) [place] # Baso # Seg Neutrophils % Seg Neuts % (Manual) Lymphocytes % (Manual) Monocytes % (Manual) Seg Neutrophils # Seg Neutrophils # Man Lymphocytes # (Manual) Monocytes # (Manual) Eosinophils # (Manual) Basophils # (Manual) PT INR APTT ABG pH ABG pO2 ABG HCO3 ABG O2 Saturation ABG Base Excess ABG Hemoglobin Oxyhemoglobin Sodium Potassium Chloride Carbon Dioxide BUN Creatinine Glucose POC Glucose 114 H 136 H 120 H Lactic Acid Calcium Ionized Calcium Phosphorus Magnesium Total Bilirubin AST ALT Alkaline Phosphatase Ammonia Total Creatine Kinase CK-MB (CK-2) CK-MB (CK-2) Rel Index Total Protein Albumin Urine WBC (Auto) Vancomycin Trough Salicylates Acetaminophen Plasma/Serum Alcohol Crossmatch 01/22/20 01/22/20 01/22/20 05:41 11:44 16:31 WBC RBC Hgb Hct MCH RDW Plt Count Lymph % (Auto) [place] % (Auto) [place] # Baso # Seg Neutrophils % Seg Neuts % (Manual) Lymphocytes % (Manual) Monocytes % (Manual) Seg Neutrophils # Seg Neutrophils # Man Lymphocytes # (Manual) Monocytes # (Manual) Eosinophils # (Manual) Basophils # (Manual) PT INR APTT ABG pH ABG pO2 ABG HCO3 ABG O2 Saturation ABG Base Excess ABG Hemoglobin Oxyhemoglobin Sodium Potassium Chloride Carbon Dioxide BUN Creatinine Glucose POC Glucose 124 H 173 H 111 H Lactic Acid Calcium Ionized Calcium Phosphorus Magnesium Total Bilirubin AST ALT Alkaline Phosphatase Ammonia Total Creatine Kinase CK-MB (CK-2) CK-MB (CK-2) Rel Index Total Protein Albumin Urine WBC (Auto) Vancomycin Trough Salicylates Acetaminophen Plasma/Serum Alcohol Crossmatch 01/22/20 01/23/20 01/23/20 23:25 05:15 12:15 WBC RBC Hgb Hct MCH RDW Plt Count Lymph % (Auto) [place] % (Auto) [place] # Baso # Seg Neutrophils % Seg Neuts % (Manual) Lymphocytes % (Manual) Monocytes % (Manual) Seg Neutrophils # Seg Neutrophils # Man Lymphocytes # (Manual) Monocytes # (Manual) Eosinophils # (Manual) Basophils # (Manual) PT INR APTT ABG pH ABG pO2 ABG HCO3 ABG O2 Saturation ABG Base Excess ABG Hemoglobin Oxyhemoglobin Sodium Potassium Chloride Carbon Dioxide BUN Creatinine Glucose POC Glucose 134 H 117 H 129 H Lactic Acid Calcium Ionized Calcium Phosphorus Magnesium Total Bilirubin AST ALT Alkaline Phosphatase Ammonia Total Creatine Kinase CK-MB (CK-2) CK-MB (CK-2) Rel Index Total Protein Albumin Urine WBC (Auto) Vancomycin Trough Salicylates Acetaminophen Plasma/Serum Alcohol Crossmatch 01/23/20 01/23/20 01/23/20 16:58 21:17 23:47 WBC RBC Hgb Hct MCH RDW Plt Count Lymph % (Auto) [place] % (Auto) [place] # Baso # Seg Neutrophils % Seg Neuts % (Manual) Lymphocytes % (Manual) Monocytes % (Manual) Seg Neutrophils # Seg Neutrophils # Man Lymphocytes # (Manual) Monocytes # (Manual) Eosinophils # (Manual) Basophils # (Manual) PT INR APTT ABG pH ABG pO2 ABG HCO3 ABG O2 Saturation ABG Base Excess ABG Hemoglobin Oxyhemoglobin Sodium Potassium Chloride Carbon Dioxide BUN Creatinine Glucose POC Glucose 156 H 185 H 156 H Lactic Acid Calcium Ionized Calcium Phosphorus Magnesium Total Bilirubin AST ALT Alkaline Phosphatase Ammonia Total Creatine Kinase CK-MB (CK-2) CK-MB (CK-2) Rel Index Total Protein Albumin Urine WBC (Auto) Vancomycin Trough Salicylates Acetaminophen Plasma/Serum Alcohol Crossmatch 01/24/20 01/24/20 01/24/20 04:47 04:47 05:59 WBC 17.8 H RBC 3.60 L Hgb Hct MCH RDW 16.2 H Plt Count 688 H Lymph % (Auto) 11.8 L [place] % (Auto) 7.5 H [place] # 1.3 H Baso # Seg Neutrophils % 79.9 H Seg Neuts % (Manual) Lymphocytes % (Manual) Monocytes % (Manual) Seg Neutrophils # 14.2 H Seg Neutrophils # Man Lymphocytes # (Manual) Monocytes # (Manual) Eosinophils # (Manual) Basophils # (Manual) PT INR APTT ABG pH ABG pO2 ABG HCO3 ABG O2 Saturation ABG Base Excess ABG Hemoglobin Oxyhemoglobin Sodium 131 L Potassium Chloride 91.2 L Carbon Dioxide BUN 22 H Creatinine 0.3 L Glucose 123 H POC Glucose 147 H Lactic Acid Calcium 10.9 H Ionized Calcium Phosphorus Magnesium Total Bilirubin AST ALT Alkaline Phosphatase Ammonia Total Creatine Kinase CK-MB (CK-2) CK-MB (CK-2) Rel Index Total Protein Albumin Urine WBC (Auto) Vancomycin Trough Salicylates Acetaminophen Plasma/Serum Alcohol Crossmatch 01/24/20 01/24/20 01/25/20 11:47 16:45 00:18 WBC RBC Hgb Hct MCH RDW Plt Count Lymph % (Auto) [place] % (Auto) [place] # Baso # Seg Neutrophils % Seg Neuts % (Manual) Lymphocytes % (Manual) Monocytes % (Manual) Seg Neutrophils # Seg Neutrophils # Man Lymphocytes # (Manual) Monocytes # (Manual) Eosinophils # (Manual) Basophils # (Manual) PT INR APTT ABG pH ABG pO2 ABG HCO3 ABG O2 Saturation ABG Base Excess ABG Hemoglobin Oxyhemoglobin Sodium Potassium Chloride Carbon Dioxide BUN Creatinine Glucose POC Glucose 114 H 108 H 119 H Lactic Acid Calcium Ionized Calcium Phosphorus Magnesium Total Bilirubin AST ALT Alkaline Phosphatase Ammonia Total Creatine Kinase CK-MB (CK-2) CK-MB (CK-2) Rel Index Total Protein Albumin Urine WBC (Auto) Vancomycin Trough Salicylates Acetaminophen Plasma/Serum Alcohol Crossmatch 01/25/20 01/25/20 01/25/20 07:18 11:58 16:56 WBC RBC Hgb Hct MCH RDW Plt Count Lymph % (Auto) [place] % (Auto) [place] # Baso # Seg Neutrophils % Seg Neuts % (Manual) Lymphocytes % (Manual) Monocytes % (Manual) Seg Neutrophils # Seg Neutrophils # Man Lymphocytes # (Manual) Monocytes # (Manual) Eosinophils # (Manual) Basophils # (Manual) PT INR APTT ABG pH ABG pO2 ABG HCO3 ABG O2 Saturation ABG Base Excess ABG Hemoglobin Oxyhemoglobin Sodium Potassium Chloride Carbon Dioxide BUN Creatinine Glucose POC Glucose 136 H 136 H 147 H Lactic Acid Calcium Ionized Calcium Phosphorus Magnesium Total Bilirubin AST ALT Alkaline Phosphatase Ammonia Total Creatine Kinase CK-MB (CK-2) CK-MB (CK-2) Rel Index Total Protein Albumin Urine WBC (Auto) Vancomycin Trough Salicylates Acetaminophen Plasma/Serum Alcohol Crossmatch 01/26/20 01/26/20 01/26/20 00:29 05:59 05:59 WBC 12.8 H RBC Hgb Hct MCH RDW 16.4 H Plt Count 743 H Lymph % (Auto) [place] % (Auto) [place] # 0.9 H Baso # Seg Neutrophils % 76.2 H Seg Neuts % (Manual) Lymphocytes % (Manual) Monocytes % (Manual) Seg Neutrophils # 9.8 H Seg Neutrophils # Man Lymphocytes # (Manual) Monocytes # (Manual) Eosinophils # (Manual) Basophils # (Manual) PT INR APTT ABG pH ABG pO2 ABG HCO3 ABG O2 Saturation ABG Base Excess ABG Hemoglobin Oxyhemoglobin Sodium 132 L Potassium Chloride 90.9 L Carbon Dioxide BUN 23 H Creatinine 0.4 L Glucose 122 H POC Glucose 107 H Lactic Acid Calcium 11.0 H Ionized Calcium Phosphorus Magnesium Total Bilirubin AST ALT Alkaline Phosphatase Ammonia Total Creatine Kinase CK-MB (CK-2) CK-MB (CK-2) Rel Index Total Protein Albumin Urine WBC (Auto) Vancomycin Trough Salicylates Acetaminophen Plasma/Serum Alcohol Crossmatch 01/26/20 01/26/20 01/26/20 06:27 12:06 16:49 WBC RBC Hgb Hct MCH RDW Plt Count Lymph % (Auto) [place] % (Auto) [place] # Baso # Seg Neutrophils % Seg Neuts % (Manual) Lymphocytes % (Manual) Monocytes % (Manual) Seg Neutrophils # Seg Neutrophils # Man Lymphocytes # (Manual) Monocytes # (Manual) Eosinophils # (Manual) Basophils # (Manual) PT INR APTT ABG pH ABG pO2 ABG HCO3 ABG O2 Saturation ABG Base Excess ABG Hemoglobin Oxyhemoglobin Sodium Potassium Chloride Carbon Dioxide BUN Creatinine Glucose POC Glucose 132 H 132 H 110 H Lactic Acid Calcium Ionized Calcium Phosphorus Magnesium Total Bilirubin AST ALT Alkaline Phosphatase Ammonia Total Creatine Kinase CK-MB (CK-2) CK-MB (CK-2) Rel Index Total Protein Albumin Urine WBC (Auto) Vancomycin Trough Salicylates Acetaminophen Plasma/Serum Alcohol Crossmatch 01/27/20 01/27/20 01/27/20 00:08 11:49 16:24 WBC RBC Hgb Hct MCH RDW Plt Count Lymph % (Auto) [place] % (Auto) [place] # Baso # Seg Neutrophils % Seg Neuts % (Manual) Lymphocytes % (Manual) Monocytes % (Manual) Seg Neutrophils # Seg Neutrophils # Man Lymphocytes # (Manual) Monocytes # (Manual) Eosinophils # (Manual) Basophils # (Manual) PT INR APTT ABG pH ABG pO2 ABG HCO3 ABG O2 Saturation ABG Base Excess ABG Hemoglobin Oxyhemoglobin Sodium Potassium Chloride Carbon Dioxide BUN Creatinine Glucose POC Glucose 107 H 119 H 129 H Lactic Acid Calcium Ionized Calcium Phosphorus Magnesium Total Bilirubin AST ALT Alkaline Phosphatase Ammonia Total Creatine Kinase CK-MB (CK-2) CK-MB (CK-2) Rel Index Total Protein Albumin Urine WBC (Auto) Vancomycin Trough Salicylates Acetaminophen Plasma/Serum Alcohol Crossmatch 01/27/20 01/28/20 01/28/20 18:28 01:00 06:22 WBC RBC Hgb Hct MCH RDW Plt Count Lymph % (Auto) [place] % (Auto) [place] # Baso # Seg Neutrophils % Seg Neuts % (Manual) Lymphocytes % (Manual) Monocytes % (Manual) Seg Neutrophils # Seg Neutrophils # Man Lymphocytes # (Manual) Monocytes # (Manual) Eosinophils # (Manual) Basophils # (Manual) PT INR APTT ABG pH ABG pO2 ABG HCO3 ABG O2 Saturation ABG Base Excess ABG Hemoglobin Oxyhemoglobin Sodium Potassium Chloride Carbon Dioxide BUN Creatinine Glucose POC Glucose 126 H 121 H 114 H Lactic Acid Calcium Ionized Calcium Phosphorus Magnesium Total Bilirubin AST ALT Alkaline Phosphatase Ammonia Total Creatine Kinase CK-MB (CK-2) CK-MB (CK-2) Rel Index Total Protein Albumin Urine WBC (Auto) Vancomycin Trough Salicylates Acetaminophen Plasma/Serum Alcohol Crossmatch 01/28/20 01/28/20 01/29/20 11:47 18:00 00:05 WBC RBC Hgb Hct MCH RDW Plt Count Lymph % (Auto) [place] % (Auto) [place] # Baso # Seg Neutrophils % Seg Neuts % (Manual) Lymphocytes % (Manual) Monocytes % (Manual) Seg Neutrophils # Seg Neutrophils # Man Lymphocytes # (Manual) Monocytes # (Manual) Eosinophils # (Manual) Basophils # (Manual) PT INR APTT ABG pH ABG pO2 ABG HCO3 ABG O2 Saturation ABG Base Excess ABG Hemoglobin Oxyhemoglobin Sodium Potassium Chloride Carbon Dioxide BUN Creatinine Glucose POC Glucose 106 H 117 H 127 H Lactic Acid Calcium Ionized Calcium Phosphorus Magnesium Total Bilirubin AST ALT Alkaline Phosphatase Ammonia Total Creatine Kinase CK-MB (CK-2) CK-MB (CK-2) Rel Index Total Protein Albumin Urine WBC (Auto) Vancomycin Trough Salicylates Acetaminophen Plasma/Serum Alcohol Crossmatch 01/29/20 01/29/20 01/29/20 06:04 11:40 16:38 WBC RBC Hgb Hct MCH RDW Plt Count Lymph % (Auto) [place] % (Auto) [place] # Baso # Seg Neutrophils % Seg Neuts % (Manual) Lymphocytes % (Manual) Monocytes % (Manual) Seg Neutrophils # Seg Neutrophils # Man Lymphocytes # (Manual) Monocytes # (Manual) Eosinophils # (Manual) Basophils # (Manual) PT INR APTT ABG pH ABG pO2 ABG HCO3 ABG O2 Saturation ABG Base Excess ABG Hemoglobin Oxyhemoglobin Sodium Potassium Chloride Carbon Dioxide BUN Creatinine Glucose POC Glucose 147 H 139 H 143 H Lactic Acid Calcium Ionized Calcium Phosphorus Magnesium Total Bilirubin AST ALT Alkaline Phosphatase Ammonia Total Creatine Kinase CK-MB (CK-2) CK-MB (CK-2) Rel Index Total Protein Albumin Urine WBC (Auto) Vancomycin Trough Salicylates Acetaminophen Plasma/Serum Alcohol Crossmatch 01/29/20 01/30/20 01/30/20 23:46 06:43 12:07 WBC RBC Hgb Hct MCH RDW Plt Count Lymph % (Auto) [place] % (Auto) [place] # Baso # Seg Neutrophils % Seg Neuts % (Manual) Lymphocytes % (Manual) Monocytes % (Manual) Seg Neutrophils # Seg Neutrophils # Man Lymphocytes # (Manual) Monocytes # (Manual) Eosinophils # (Manual) Basophils # (Manual) PT INR APTT ABG pH ABG pO2 ABG HCO3 ABG O2 Saturation ABG Base Excess ABG Hemoglobin Oxyhemoglobin Sodium Potassium Chloride Carbon Dioxide BUN Creatinine Glucose POC Glucose 122 H 122 H 134 H Lactic Acid Calcium Ionized Calcium Phosphorus Magnesium Total Bilirubin AST ALT Alkaline Phosphatase Ammonia Total Creatine Kinase CK-MB (CK-2) CK-MB (CK-2) Rel Index Total Protein Albumin Urine WBC (Auto) Vancomycin Trough Salicylates Acetaminophen Plasma/Serum Alcohol Crossmatch 01/30/20 01/31/20 01/31/20 17:59 00:52 05:54 WBC RBC Hgb Hct MCH RDW Plt Count Lymph % (Auto) [place] % (Auto) [place] # Baso # Seg Neutrophils % Seg Neuts % (Manual) Lymphocytes % (Manual) Monocytes % (Manual) Seg Neutrophils # Seg Neutrophils # Man Lymphocytes # (Manual) Monocytes # (Manual) Eosinophils # (Manual) Basophils # (Manual) PT INR APTT ABG pH ABG pO2 ABG HCO3 ABG O2 Saturation ABG Base Excess ABG Hemoglobin Oxyhemoglobin Sodium Potassium Chloride Carbon Dioxide BUN Creatinine Glucose POC Glucose 116 H 127 H 127 H Lactic Acid Calcium Ionized Calcium Phosphorus Magnesium Total Bilirubin AST ALT Alkaline Phosphatase Ammonia Total Creatine Kinase CK-MB (CK-2) CK-MB (CK-2) Rel Index Total Protein Albumin Urine WBC (Auto) Vancomycin Trough Salicylates Acetaminophen Plasma/Serum Alcohol Crossmatch 01/31/20 02/01/20 02/01/20 12:20 00:48 12:21 WBC RBC Hgb Hct MCH RDW Plt Count Lymph % (Auto) [place] % (Auto) [place] # Baso # Seg Neutrophils % Seg Neuts % (Manual) Lymphocytes % (Manual) Monocytes % (Manual) Seg Neutrophils # Seg Neutrophils # Man Lymphocytes # (Manual) Monocytes # (Manual) Eosinophils # (Manual) Basophils # (Manual) PT INR APTT ABG pH ABG pO2 ABG HCO3 ABG O2 Saturation ABG Base Excess ABG Hemoglobin Oxyhemoglobin Sodium Potassium Chloride Carbon Dioxide BUN Creatinine Glucose POC Glucose 126 H 154 H 123 H Lactic Acid Calcium Ionized Calcium Phosphorus Magnesium Total Bilirubin AST ALT Alkaline Phosphatase Ammonia Total Creatine Kinase CK-MB (CK-2) CK-MB (CK-2) Rel Index Total Protein Albumin Urine WBC (Auto) Vancomycin Trough Salicylates Acetaminophen Plasma/Serum Alcohol Crossmatch 02/01/20 02/02/20 02/02/20 23:58 06:08 11:50 WBC RBC Hgb Hct MCH RDW Plt Count Lymph % (Auto) [place] % (Auto) [place] # Baso # Seg Neutrophils % Seg Neuts % (Manual) Lymphocytes % (Manual) Monocytes % (Manual) Seg Neutrophils # Seg Neutrophils # Man Lymphocytes # (Manual) Monocytes # (Manual) Eosinophils # (Manual) Basophils # (Manual) PT INR APTT ABG pH ABG pO2 ABG HCO3 ABG O2 Saturation ABG Base Excess ABG Hemoglobin Oxyhemoglobin Sodium Potassium Chloride Carbon Dioxide BUN Creatinine Glucose POC Glucose 125 H 144 H 131 H Lactic Acid Calcium Ionized Calcium Phosphorus Magnesium Total Bilirubin AST ALT Alkaline Phosphatase Ammonia Total Creatine Kinase CK-MB (CK-2) CK-MB (CK-2) Rel Index Total Protein Albumin Urine WBC (Auto) Vancomycin Trough Salicylates Acetaminophen Plasma/Serum Alcohol Crossmatch 02/02/20 02/03/20 02/03/20 17:53 00:14 05:47 WBC RBC Hgb Hct MCH RDW Plt Count Lymph % (Auto) [place] % (Auto) [place] # Baso # Seg Neutrophils % Seg Neuts % (Manual) Lymphocytes % (Manual) Monocytes % (Manual) Seg Neutrophils # Seg Neutrophils # Man Lymphocytes # (Manual) Monocytes # (Manual) Eosinophils # (Manual) Basophils # (Manual) PT INR APTT ABG pH ABG pO2 ABG HCO3 ABG O2 Saturation ABG Base Excess ABG Hemoglobin Oxyhemoglobin Sodium Potassium Chloride Carbon Dioxide BUN Creatinine Glucose POC Glucose 108 H 122 H 118 H Lactic Acid Calcium Ionized Calcium Phosphorus Magnesium Total Bilirubin AST ALT Alkaline Phosphatase Ammonia Total Creatine Kinase CK-MB (CK-2) CK-MB (CK-2) Rel Index Total Protein Albumin Urine WBC (Auto) Vancomycin Trough Salicylates Acetaminophen Plasma/Serum Alcohol Crossmatch 02/03/20 02/03/20 02/03/20 05:59 05:59 11:49 WBC RBC 3.48 L Hgb Hct 29.9 L MCH RDW 16.2 H Plt Count 707 H Lymph % (Auto) [place] % (Auto) 9.3 H [place] # 0.9 H Baso # Seg Neutrophils % Seg Neuts % (Manual) Lymphocytes % (Manual) Monocytes % (Manual) Seg Neutrophils # Seg Neutrophils # Man Lymphocytes # (Manual) Monocytes # (Manual) Eosinophils # (Manual) Basophils # (Manual) PT INR APTT ABG pH ABG pO2 ABG HCO3 ABG O2 Saturation ABG Base Excess ABG Hemoglobin Oxyhemoglobin Sodium 136 L Potassium Chloride 93.4 L Carbon Dioxide BUN 20 H Creatinine 0.5 L Glucose 101 H POC Glucose 133 H Lactic Acid Calcium 10.8 H Ionized Calcium Phosphorus Magnesium Total Bilirubin AST ALT Alkaline Phosphatase Ammonia Total Creatine Kinase CK-MB (CK-2) CK-MB (CK-2) Rel Index Total Protein Albumin Urine WBC (Auto) Vancomycin Trough Salicylates Acetaminophen Plasma/Serum Alcohol Crossmatch 02/03/20 02/04/20 02/04/20 23:19 05:37 23:56 WBC RBC Hgb Hct MCH RDW Plt Count Lymph % (Auto) [place] % (Auto) [place] # Baso # Seg Neutrophils % Seg Neuts % (Manual) Lymphocytes % (Manual) Monocytes % (Manual) Seg Neutrophils # Seg Neutrophils # Man Lymphocytes # (Manual) Monocytes # (Manual) Eosinophils # (Manual) Basophils # (Manual) PT INR APTT ABG pH ABG pO2 ABG HCO3 ABG O2 Saturation ABG Base Excess ABG Hemoglobin Oxyhemoglobin Sodium Potassium Chloride Carbon Dioxide BUN Creatinine Glucose POC Glucose 135 H 108 H 158 H Lactic Acid Calcium Ionized Calcium Phosphorus Magnesium Total Bilirubin AST ALT Alkaline Phosphatase Ammonia Total Creatine Kinase CK-MB (CK-2) CK-MB (CK-2) Rel Index Total Protein Albumin Urine WBC (Auto) Vancomycin Trough Salicylates Acetaminophen Plasma/Serum Alcohol Crossmatch 02/05/20 02/05/20 02/06/20 05:33 23:24 05:50 WBC RBC Hgb Hct MCH RDW Plt Count Lymph % (Auto) [place] % (Auto) [place] # Baso # Seg Neutrophils % Seg Neuts % (Manual) Lymphocytes % (Manual) Monocytes % (Manual) Seg Neutrophils # Seg Neutrophils # Man Lymphocytes # (Manual) Monocytes # (Manual) Eosinophils # (Manual) Basophils # (Manual) PT INR APTT ABG pH ABG pO2 ABG HCO3 ABG O2 Saturation ABG Base Excess ABG Hemoglobin Oxyhemoglobin Sodium Potassium Chloride Carbon Dioxide BUN Creatinine Glucose POC Glucose 152 H 158 H 110 H Lactic Acid Calcium Ionized Calcium Phosphorus Magnesium Total Bilirubin AST ALT Alkaline Phosphatase Ammonia Total Creatine Kinase CK-MB (CK-2) CK-MB (CK-2) Rel Index Total Protein Albumin Urine WBC (Auto) Vancomycin Trough Salicylates Acetaminophen Plasma/Serum Alcohol Crossmatch 02/06/20 02/07/20 02/07/20 16:03 00:13 05:27 WBC RBC Hgb Hct MCH RDW Plt Count Lymph % (Auto) [place] % (Auto) [place] # Baso # Seg Neutrophils % Seg Neuts % (Manual) Lymphocytes % (Manual) Monocytes % (Manual) Seg Neutrophils # Seg Neutrophils # Man Lymphocytes # (Manual) Monocytes # (Manual) Eosinophils # (Manual) Basophils # (Manual) PT INR APTT ABG pH ABG pO2 ABG HCO3 ABG O2 Saturation ABG Base Excess ABG Hemoglobin Oxyhemoglobin Sodium Potassium Chloride Carbon Dioxide BUN Creatinine Glucose POC Glucose 130 H 115 H 115 H Lactic Acid Calcium Ionized Calcium Phosphorus Magnesium Total Bilirubin AST ALT Alkaline Phosphatase Ammonia Total Creatine Kinase CK-MB (CK-2) CK-MB (CK-2) Rel Index Total Protein Albumin Urine WBC (Auto) Vancomycin Trough Salicylates Acetaminophen Plasma/Serum Alcohol Crossmatch 02/07/20 02/07/20 02/08/20 11:42 17:23 00:37 WBC RBC Hgb Hct MCH RDW Plt Count Lymph % (Auto) [place] % (Auto) [place] # Baso # Seg Neutrophils % Seg Neuts % (Manual) Lymphocytes % (Manual) Monocytes % (Manual) Seg Neutrophils # Seg Neutrophils # Man Lymphocytes # (Manual) Monocytes # (Manual) Eosinophils # (Manual) Basophils # (Manual) PT INR APTT ABG pH ABG pO2 ABG HCO3 ABG O2 Saturation ABG Base Excess ABG Hemoglobin Oxyhemoglobin Sodium Potassium Chloride Carbon Dioxide BUN Creatinine Glucose POC Glucose 113 H 114 H 136 H Lactic Acid Calcium Ionized Calcium Phosphorus Magnesium Total Bilirubin AST ALT Alkaline Phosphatase Ammonia Total Creatine Kinase CK-MB (CK-2) CK-MB (CK-2) Rel Index Total Protein Albumin Urine WBC (Auto) Vancomycin Trough Salicylates Acetaminophen Plasma/Serum Alcohol Crossmatch 02/08/20 02/08/20 02/08/20 08:52 11:42 17:02 WBC RBC Hgb Hct MCH RDW Plt Count Lymph % (Auto) [place] % (Auto) [place] # Baso # Seg Neutrophils % Seg Neuts % (Manual) Lymphocytes % (Manual) Monocytes % (Manual) Seg Neutrophils # Seg Neutrophils # Man Lymphocytes # (Manual) Monocytes # (Manual) Eosinophils # (Manual) Basophils # (Manual) PT INR APTT ABG pH ABG pO2 ABG HCO3 ABG O2 Saturation ABG Base Excess ABG Hemoglobin Oxyhemoglobin Sodium 136 L Potassium Chloride 95.7 L Carbon Dioxide BUN 21 H Creatinine 0.4 L Glucose POC Glucose 128 H 145 H Lactic Acid Calcium 10.4 H Ionized Calcium Phosphorus Magnesium Total Bilirubin AST ALT Alkaline Phosphatase Ammonia Total Creatine Kinase CK-MB (CK-2) CK-MB (CK-2) Rel Index Total Protein Albumin Urine WBC (Auto) Vancomycin Trough Salicylates Acetaminophen Plasma/Serum Alcohol Crossmatch 02/09/20 02/09/20 02/09/20 01:05 11:52 16:19 WBC RBC Hgb Hct MCH RDW Plt Count Lymph % (Auto) [place] % (Auto) [place] # Baso # Seg Neutrophils % Seg Neuts % (Manual) Lymphocytes % (Manual) Monocytes % (Manual) Seg Neutrophils # Seg Neutrophils # Man Lymphocytes # (Manual) Monocytes # (Manual) Eosinophils # (Manual) Basophils # (Manual) PT INR APTT ABG pH ABG pO2 ABG HCO3 ABG O2 Saturation ABG Base Excess ABG Hemoglobin Oxyhemoglobin Sodium Potassium Chloride Carbon Dioxide BUN Creatinine Glucose POC Glucose 117 H 141 H 113 H Lactic Acid Calcium Ionized Calcium Phosphorus Magnesium Total Bilirubin AST ALT Alkaline Phosphatase Ammonia Total Creatine Kinase CK-MB (CK-2) CK-MB (CK-2) Rel Index Total Protein Albumin Urine WBC (Auto) Vancomycin Trough Salicylates Acetaminophen Plasma/Serum Alcohol Crossmatch 02/10/20 02/10/20 02/10/20 05:25 12:50 17:08 WBC RBC Hgb Hct MCH RDW Plt Count Lymph % (Auto) [place] % (Auto) [place] # Baso # Seg Neutrophils % Seg Neuts % (Manual) Lymphocytes % (Manual) Monocytes % (Manual) Seg Neutrophils # Seg Neutrophils # Man Lymphocytes # (Manual) Monocytes # (Manual) Eosinophils # (Manual) Basophils # (Manual) PT INR APTT ABG pH ABG pO2 ABG HCO3 ABG O2 Saturation ABG Base Excess ABG Hemoglobin Oxyhemoglobin Sodium Potassium Chloride Carbon Dioxide BUN Creatinine Glucose POC Glucose 136 H 127 H 111 H Lactic Acid Calcium Ionized Calcium Phosphorus Magnesium Total Bilirubin AST ALT Alkaline Phosphatase Ammonia Total Creatine Kinase CK-MB (CK-2) CK-MB (CK-2) Rel Index Total Protein Albumin Urine WBC (Auto) Vancomycin Trough Salicylates Acetaminophen Plasma/Serum Alcohol Crossmatch 02/10/20 02/11/20 02/11/20 23:55 06:11 12:07 WBC RBC Hgb Hct MCH RDW Plt Count Lymph % (Auto) [place] % (Auto) [place] # Baso # Seg Neutrophils % Seg Neuts % (Manual) Lymphocytes % (Manual) Monocytes % (Manual) Seg Neutrophils # Seg Neutrophils # Man Lymphocytes # (Manual) Monocytes # (Manual) Eosinophils # (Manual) Basophils # (Manual) PT INR APTT ABG pH ABG pO2 ABG HCO3 ABG O2 Saturation ABG Base Excess ABG Hemoglobin Oxyhemoglobin Sodium Potassium Chloride Carbon Dioxide BUN Creatinine Glucose POC Glucose 129 H 128 H 141 H Lactic Acid Calcium Ionized Calcium Phosphorus Magnesium Total Bilirubin AST ALT Alkaline Phosphatase Ammonia Total Creatine Kinase CK-MB (CK-2) CK-MB (CK-2) Rel Index Total Protein Albumin Urine WBC (Auto) Vancomycin Trough Salicylates Acetaminophen Plasma/Serum Alcohol Crossmatch 02/11/20 02/12/20 02/13/20 18:22 02:39 06:45 WBC RBC Hgb Hct MCH RDW Plt Count Lymph % (Auto) [place] % (Auto) [place] # Baso # Seg Neutrophils % Seg Neuts % (Manual) Lymphocytes % (Manual) Monocytes % (Manual) Seg Neutrophils # Seg Neutrophils # Man Lymphocytes # (Manual) Monocytes # (Manual) Eosinophils # (Manual) Basophils # (Manual) PT INR APTT ABG pH ABG pO2 ABG HCO3 ABG O2 Saturation ABG Base Excess ABG Hemoglobin Oxyhemoglobin Sodium Potassium Chloride Carbon Dioxide BUN Creatinine Glucose POC Glucose 118 H 107 H 124 H Lactic Acid Calcium Ionized Calcium Phosphorus Magnesium Total Bilirubin AST ALT Alkaline Phosphatase Ammonia Total Creatine Kinase CK-MB (CK-2) CK-MB (CK-2) Rel Index Total Protein Albumin Urine WBC (Auto) Vancomycin Trough Salicylates Acetaminophen Plasma/Serum Alcohol Crossmatch 02/13/20 02/13/20 02/14/20 12:26 18:19 00:21 WBC RBC Hgb Hct MCH RDW Plt Count Lymph % (Auto) [place] % (Auto) [place] # Baso # Seg Neutrophils % Seg Neuts % (Manual) Lymphocytes % (Manual) Monocytes % (Manual) Seg Neutrophils # Seg Neutrophils # Man Lymphocytes # (Manual) Monocytes # (Manual) Eosinophils # (Manual) Basophils # (Manual) PT INR APTT ABG pH ABG pO2 ABG HCO3 ABG O2 Saturation ABG Base Excess ABG Hemoglobin Oxyhemoglobin Sodium Potassium Chloride Carbon Dioxide BUN Creatinine Glucose POC Glucose 124 H 118 H 130 H Lactic Acid Calcium Ionized Calcium Phosphorus Magnesium Total Bilirubin AST ALT Alkaline Phosphatase Ammonia Total Creatine Kinase CK-MB (CK-2) CK-MB (CK-2) Rel Index Total Protein Albumin Urine WBC (Auto) Vancomycin Trough Salicylates Acetaminophen Plasma/Serum Alcohol Crossmatch 02/14/20 02/14/20 02/16/20 11:19 16:16 00:58 WBC RBC Hgb Hct MCH RDW Plt Count Lymph % (Auto) [place] % (Auto) [place] # Baso # Seg Neutrophils % Seg Neuts % (Manual) Lymphocytes % (Manual) Monocytes % (Manual) Seg Neutrophils # Seg Neutrophils # Man Lymphocytes # (Manual) Monocytes # (Manual) Eosinophils # (Manual) Basophils # (Manual) PT INR APTT ABG pH ABG pO2 ABG HCO3 ABG O2 Saturation ABG Base Excess ABG Hemoglobin Oxyhemoglobin Sodium Potassium Chloride Carbon Dioxide BUN Creatinine Glucose POC Glucose 135 H 119 H 121 H Lactic Acid Calcium Ionized Calcium Phosphorus Magnesium Total Bilirubin AST ALT Alkaline Phosphatase Ammonia Total Creatine Kinase CK-MB (CK-2) CK-MB (CK-2) Rel Index Total Protein Albumin Urine WBC (Auto) Vancomycin Trough Salicylates Acetaminophen Plasma/Serum Alcohol Crossmatch 02/16/20 02/16/20 02/16/20 12:12 18:22 23:51 WBC RBC Hgb Hct MCH RDW Plt Count Lymph % (Auto) [place] % (Auto) [place] # Baso # Seg Neutrophils % Seg Neuts % (Manual) Lymphocytes % (Manual) Monocytes % (Manual) Seg Neutrophils # Seg Neutrophils # Man Lymphocytes # (Manual) Monocytes # (Manual) Eosinophils # (Manual) Basophils # (Manual) PT INR APTT ABG pH ABG pO2 ABG HCO3 ABG O2 Saturation ABG Base Excess ABG Hemoglobin Oxyhemoglobin Sodium Potassium Chloride Carbon Dioxide BUN Creatinine Glucose POC Glucose 107 H 106 H 128 H Lactic Acid Calcium Ionized Calcium Phosphorus Magnesium Total Bilirubin AST ALT Alkaline Phosphatase Ammonia Total Creatine Kinase CK-MB (CK-2) CK-MB (CK-2) Rel Index Total Protein Albumin Urine WBC (Auto) Vancomycin Trough Salicylates Acetaminophen Plasma/Serum Alcohol Crossmatch 02/17/20 02/17/20 02/17/20 05:50 07:57 07:57 WBC 12.6 H RBC 3.52 L Hgb Hct MCH RDW 15.3 H Plt Count 643 H Lymph % (Auto) [place] % (Auto) 8.0 H [place] # 1.0 H Baso # Seg Neutrophils % Seg Neuts % (Manual) Lymphocytes % (Manual) Monocytes % (Manual) Seg Neutrophils # 8.5 H Seg Neutrophils # Man Lymphocytes # (Manual) Monocytes # (Manual) Eosinophils # (Manual) Basophils # (Manual) PT INR APTT ABG pH ABG pO2 ABG HCO3 ABG O2 Saturation ABG Base Excess ABG Hemoglobin Oxyhemoglobin Sodium Potassium Chloride 96.9 L Carbon Dioxide BUN 21 H Creatinine 0.4 L Glucose 113 H POC Glucose 116 H Lactic Acid Calcium 10.5 H Ionized Calcium Phosphorus Magnesium Total Bilirubin AST ALT Alkaline Phosphatase Ammonia Total Creatine Kinase CK-MB (CK-2) CK-MB (CK-2) Rel Index Total Protein Albumin Urine WBC (Auto) Vancomycin Trough Salicylates Acetaminophen Plasma/Serum Alcohol Crossmatch 02/17/20 02/17/20 02/18/20 12:05 18:16 00:13 WBC RBC Hgb Hct MCH RDW Plt Count Lymph % (Auto) [place] % (Auto) [place] # Baso # Seg Neutrophils % Seg Neuts % (Manual) Lymphocytes % (Manual) Monocytes % (Manual) Seg Neutrophils # Seg Neutrophils # Man Lymphocytes # (Manual) Monocytes # (Manual) Eosinophils # (Manual) Basophils # (Manual) PT INR APTT ABG pH ABG pO2 ABG HCO3 ABG O2 Saturation ABG Base Excess ABG Hemoglobin Oxyhemoglobin Sodium Potassium Chloride Carbon Dioxide BUN Creatinine Glucose POC Glucose 139 H 127 H 144 H Lactic Acid Calcium Ionized Calcium Phosphorus Magnesium Total Bilirubin AST ALT Alkaline Phosphatase Ammonia Total Creatine Kinase CK-MB (CK-2) CK-MB (CK-2) Rel Index Total Protein Albumin Urine WBC (Auto) Vancomycin Trough Salicylates Acetaminophen Plasma/Serum Alcohol Crossmatch Chest x-ray: report reviewed (Chest xray 02/17/20 reported no acute findings.), image reviewed Allied health notes reviewed: RT
[2020-02-18] MEDS: GLYCOPYRROLATE 1 MG TAB PO SCH ×3 (16:51→22:07)
[2020-02-18] MEDS: QUEtiapine 100 MG TAB FEEDTUBE SCH (22:07)
[2020-02-18] MEDS: DOCUSATE SODIUM 100 MG/10 ML ORAL LIQD FEEDTUBE SCH (22:08)
[2020-02-18] MEDS: ACETAMINOPHEN 325 MG/10.15 ML ORAL LIQD UNIT DOSE FEEDTUBE PRN (22:08)
[2020-02-19] MEDS: ACETYLCYSTEINE 20% 200 MG/1 ML *FOR INHALATION USE INHALATION SCH ×3 (00:34→21:03)
[2020-02-19] MEDS: LEVALBUTEROL 0.63 MG/3 ML NEBU IH SCH ×4 (00:34→17:37)
[2020-02-19] MEDS: LANSOPRAZOLE 30 MG SOLUTAB FEEDTUBE SCH (09:36)
[2020-02-19] MEDS: GLYCOPYRROLATE 1 MG TAB PO SCH ×3 (09:36→22:00)
[2020-02-19] MEDS: hydrOXYzine PAMOATE 25 MG CAP PO SCH ×2 (09:36→22:00)
[2020-02-19] MEDS: levETIRAcetam 500 MG/5 ML ORAL LIQD PO SCH ×2 (09:36→22:00)
[2020-02-19] MEDS: MIRTAZAPINE 30 MG TAB PO SCH (09:36)
[2020-02-19] MEDS: DOCUSATE SODIUM 100 MG/10 ML ORAL LIQD FEEDTUBE SCH ×2 (09:36→22:00)
[2020-02-19] MEDS: NICOTINE 21 MG/24 HR PATCH TD SCH (09:36)
--- NOTE | 2020-02-19 14:28 | Progress Note ---
Assessment and Plan Assessment and plan: 02/17: Patient pending placement, Following extubation, the patient has remained with AMS, on restraints, no new fever but tachycardia, still requiring aggressive pulmonary toilet. / Anoxic brain injury: suspected CT head: No acute abnormality. EEG ordered showed Generalized slowing. No seizures or epileptiform activity. -Patient now opening her eyes, can speak and able to follow minor command by n odding head /Acute Respiratory failure with hypoxia -s/p Tracheostomy Status post cardiac arrest -s/p intubation, s/p trach and PEG on 12/12 with mechanical ventilation, now on T-piece - CTA was done and negative for PE, - Echo quality is poor, showed diastolic dysfunction - continue weaning as tolerated /Oropharyngeal dysphagia s/p PEG /Persistent Tachycardia -Check TSH and Free T4 /BHAVANA secondary to vasomotor nephropathy /Anemia, microcytic - Status post 3 units PRBC transfusion, H&H low stable /Acute metabolic encephalopathy/toxic encephalopathy due to the above - cont supportive care /Hyperammonemia - likely from liver disease related to EtOH abuse - Patient had elevated ammonia level and treated with lactulose /Metabolic Acidosis -Alcohol ketoacidosis vs hypoprofusion -Continue to monitor /Acute cystitis /ELevated LFTs, stable now - due to ischemic hepatitis. /Leucocytosis with sepsis - Source MRSA bacteremia and MSSA pneumonia. UA showed pyuria. RUQ US showed no ascites. - Repeat TTE negative for vegetation. Completed 7 days of Ceftriaxone on 11/29/2019. -Treated with Abx vancomycin 1 gm IV q 12 hour total 2 week till 12/30/2019 /MSSA pneumonia: Status post vancomycin till 12/30/2019 /ALcohol USe Disorder - given ongoing Alcohol use almost daily, s/p IV Thiamine - monitor /Severe hypokalemia -Repleted /Seizure disorder: treat with Keppra /H. Influenzae, tracheobronchitis, treated with abx /Moderate to severe fecal impaction - will add stool softner /Anxiety disorder: Psych consulted DNR CODE STATUS Disposition: prognosis guarded. Family okay for DNR, PT recommended subacute rehab, discharge pending on placement. negative for COVID 19 Awaiting Placement to SNF Brief History: 54-year-old female with a past medical history of Hypertension, Depression, Tobacco use Disorder, Alcohol use Disorder as confirmed by Daughter and pt's mother presents to the hospital status post cardiac arrest at home. EMS found pt in [place]. They were unable to intubate patient with a ET tube because she was clenching down therefore Joe airway placed. Per the ED physician who evaluated pt, Patient presented with a pulse, intermittent respirations, and bagging support via Joe airway with O2 sat of 100%. Accu-Chek of 71 obtained by EMS. She was intubated in the ER and called for admission. Following admission patient was diagnosed with anoxic brain injury, sepsis with MRSA bacteremia and MSSA pneumonia, alcoholic liver disease. Family member initially wished for full code then changed to DNR, patient treated with IV antibiotics for sepsis, status post trach and PEG on 12/13/19. Weaned off from the vent and put on T- piece. Patient is uninsured, waiting for placement, guarded prognosis. History Interval history: Patient seen and examined at the bedside with the contact isolation precautions Patient's chart and medications reviewed Patient is confused, not in acute distress Vital signs noted Hospitalist Physical - Constitutional Vitals: Temp Pulse Resp BP Pulse Ox 98.0 F 118 H 18 144/91 97 02/19/20 07:46 02/19/20 10:22 02/19/20 08:00 02/19/20 07:46 02/19/20 09:08 General appearance: Present: no acute distress, cachectic, disheveled - EENT Eyes: Present: PERRL, EOM intact - Neck Neck: Present: supple, normal ROM - Respiratory Respiratory effort: normal Respiratory: bilateral: diminished, negative: rales, rhonchi, wheezing - Cardiovascular Rhythm: regular Heart Sounds: Present: S1 & S2 - Extremities Extremities: no ischemia, No edema - Abdominal General gastrointestinal: soft, non-tender, non-distended, normal bowel sounds - Integumentary Integumentary: Present: clear, warm - Psychiatric Psychiatric: appropriate mood/affect, cooperative - Neurologic Neurologic: moves all extremities HEART Score - HEART Score Troponin: Troponin T < 0.010 ng/mL (0.00-0.029) 11/22/19 23:27 Results - Labs CBC & Chem 7: 02/17/20 07:57 02/17/20 07:57 Labs: Laboratory Last Values WBC 12.6 K/mm3 (4.5-11.0) H 02/17/20 07:57 RBC 3.52 M/mm3 (3.65-5.03) L 02/17/20 07:57 Hgb 10.2 gm/dl (10.1-14.3) 02/17/20 07:57 Hct 30.8 % (30.3-42.9) 02/17/20 07:57 MCV 88 fl (79-97) 02/17/20 07:57 MCH 29 pg (28-32) 02/17/20 07:57 MCHC 33 % (30-34) 02/17/20 07:57 RDW 15.3 % (13.2-15.2) H 02/17/20 07:57 Plt Count 643 K/mm3 (140-440) H 02/17/20 07:57 Lymph % (Auto) 21.3 % (13.4-35.0) 02/17/20 07:57 Thomas % (Auto) 8.0 % (0.0-7.3) H 02/17/20 07:57 Eos % (Auto) 2.5 % (0.0-4.3) 02/17/20 07:57 Baso % (Auto) 0.5 % (0.0-1.8) 02/17/20 07:57 Lymph # 2.7 K/mm3 (1.2-5.4) 02/17/20 07:57 Thomas # 1.0 K/mm3 (0.0-0.8) H 02/17/20 07:57 Eos # 0.3 K/mm3 (0.0-0.4) 02/17/20 07:57 Baso # 0.1 K/mm3 (0.0-0.1) 02/17/20 07:57 Add Manual Diff Complete 12/25/19 03:47 Total Counted 200 12/25/19 03:47 Seg Neutrophils % 67.7 % (40.0-70.0) 02/17/20 07:57 Seg Neuts % (Manual) 97.5 % (40.0-70.0) H 12/25/19 03:47 Band Neutrophils % 0 % 12/25/19 03:47 Lymphocytes % (Manual) 1.0 % (13.4-35.0) L 12/25/19 03:47 Reactive Lymphs % (Man) 0 % 12/25/19 03:47 Monocytes % (Manual) 1.5 % (0.0-7.3) 12/25/19 03:47 Eosinophils % (Manual) 0 % (0.0-4.3) 12/25/19 03:47 Basophils % (Manual) 0 % (0.0-1.8) 12/25/19 03:47 Metamyelocytes % 0 % 12/25/19 03:47 Myelocytes % 0 % 12/25/19 03:47 Promyelocytes % 0 % 12/25/19 03:47 Blast Cells % 0 % 12/25/19 03:47 Nucleated RBC % Not Reportable 12/25/19 03:47 Seg Neutrophils # 8.5 K/mm3 (1.8-7.7) H 02/17/20 07:57 Seg Neutrophils # Man 35.3 K/mm3 (1.8-7.7) H 12/25/19 03:47 Band Neutrophils # 0.0 K/mm3 12/25/19 03:47 Lymphocytes # (Manual) 0.4 K/mm3 (1.2-5.4) L 12/25/19 03:47 Abs React Lymphs (Man) 0.0 K/mm3 12/25/19 03:47 Monocytes # (Manual) 0.5 K/mm3 (0.0-0.8) 12/25/19 03:47 Eosinophils # (Manual) 0.0 K/mm3 (0.0-0.4) 12/25/19 03:47 Basophils # (Manual) 0.0 K/mm3 (0.0-0.1) 12/25/19 03:47 Metamyelocytes # 0.0 K/mm3 12/25/19 03:47 Myelocytes # 0.0 K/mm3 12/25/19 03:47 Promyelocytes # 0.0 K/mm3 12/25/19 03:47 Blast Cells # 0.0 K/mm3 12/25/19 03:47 Pathologist Review 12/13/19 07:48 WBC Morphology Not Reportable 12/25/19 03:47 Hypersegmented Neuts Not Reportable 12/25/19 03:47 Hyposegmented Neuts Not Reportable 12/25/19 03:47 Hypogranular Neuts Not Reportable 12/25/19 03:47 Smudge Cells Not Reportable 12/25/19 03:47 Toxic Granulation Not Reportable 12/25/19 03:47 Toxic Vacuolation Not Reportable 12/25/19 03:47 Dohle Bodies Not Reportable 12/25/19 03:47 Pelger-Huet Anomaly Not Reportable 12/25/19 03:47 Dominique Rods Not Reportable 12/25/19 03:47 Platelet Estimate Consistent w auto 12/25/19 03:47 Clumped Platelets Not Reportable 12/25/19 03:47 Plt Clumps, EDTA Not Reportable 12/25/19 03:47 Large Platelets Not Reportable 12/25/19 03:47 Giant Platelets Not Reportable 12/25/19 03:47 Platelet Satelliting Not Reportable 12/25/19 03:47 Plt Morphology Comment Not Reportable 12/25/19 03:47 RBC Morphology Not Reportable 12/25/19 03:47 Dimorphic RBCs Not Reportable 12/25/19 03:47 Polychromasia Not Reportable 12/25/19 03:47 Hypochromasia Not Reportable 12/25/19 03:47 Poikilocytosis Not Reportable 12/25/19 03:47 Anisocytosis 1+ 12/25/19 03:47 Microcytosis Not Reportable 12/25/19 03:47 Macrocytosis Not Reportable 12/25/19 03:47 Spherocytes Not Reportable 12/25/19 03:47 Pappenheimer Bodies Not Reportable 12/25/19 03:47 Sickle Cells Not Reportable 12/25/19 03:47 Target Cells Not Reportable 12/25/19 03:47 Tear Drop Cells Not Reportable 12/25/19 03:47 Ovalocytes Not Reportable 12/25/19 03:47 Helmet Cells Not Reportable 12/25/19 03:47 Frias-Manheim Bodies Not Reportable 12/25/19 03:47 Leland Rings Not Reportable 12/25/19 03:47 Rule Cells Not Reportable 12/25/19 03:47 Bite Cells Not Reportable 12/25/19 03:47 Crenated Cell Not Reportable 12/25/19 03:47 Elliptocytes Not Reportable 12/25/19 03:47 Acanthocytes (Spur) Not Reportable 12/25/19 03:47 Rouleaux Not Reportable 12/25/19 03:47 Hemoglobin C Crystals Not Reportable 12/25/19 03:47 Schistocytes Not Reportable 12/25/19 03:47 Malaria parasites Not Reportable 12/25/19 03:47 Gregg Bodies Not Reportable 12/25/19 03:47 Hem Pathologist Commnt No 12/25/19 03:47 PT 17.0 Sec. (12.2-14.9) H 11/23/19 03:47 INR 1.36 (0.87-1.13) H 11/23/19 03:47 APTT 128.2 Sec. (24.2-36.6) H* 11/23/19 03:47 Heparin Anti-Xa Level 0.31 U.I./ml (0.3-0.7) 11/23/19 09:03 ABG pH 7.429 pH Units (7.350-7.450) 01/09/20 08:51 ABG pCO2 39.1 mm Hg 01/09/20 08:51 ABG pO2 94.3 mm Hg (80.0-90.0) H 01/09/20 08:51 ABG HCO3 25.3 mmol/L (20.0-26.0) 01/09/20 08:51 ABG O2 Saturation 97.4 % (95.0-99.0) 01/09/20 08:51 ABG O2 Content 12.9 (0.0-44) 01/09/20 08:51 ABG Base Excess 1.0 mmol/L (-2.0-3.0) 01/09/20 08:51 ABG Hemoglobin 9.5 gm/dl (12.0-16.0) L 01/09/20 08:51 ABG Carboxyhemoglobin 1.3 % (0.0-5.0) 01/09/20 08:51 ABG Methemoglobin 0.4 % (0.0-1.5) 01/09/20 08:51 Oxyhemoglobin 95.7 % (95.0-99.0) 01/09/20 08:51 FiO2 35 % 01/09/20 08:51 Sodium 137 mmol/L (137-145) 02/17/20 07:57 Potassium 4.7 mmol/L (3.6-5.0) 02/17/20 07:57 Chloride 96.9 mmol/L (98-107) L 02/17/20 07:57 Carbon Dioxide 25 mmol/L (22-30) 02/17/20 07:57 Anion Gap 20 mmol/L 02/17/20 07:57 BUN 21 mg/dL (7-17) H 02/17/20 07:57 Creatinine 0.4 mg/dL (0.7-1.2) L 02/17/20 07:57 Estimated GFR > 60 ml/min 02/17/20 07:57 BUN/Creatinine Ratio 53 % 02/17/20 07:57 Glucose 113 mg/dL (65-100) H 02/17/20 07:57 POC Glucose 115 (70-105) H 02/19/20 12:33 Lactic Acid 1.80 mmol/L (0.7-2.0) 11/25/19 05:05 Calcium 10.5 mg/dL (8.4-10.2) H 02/17/20 07:57 Ionized Calcium 4.5 mg/dL (4.8-5.6) L 11/23/19 06:32 Phosphorus 4.20 mg/dL (2.5-4.5) D 11/28/19 08:59 Magnesium 2.30 mg/dL (1.7-2.3) 11/29/19 13:41 Total Bilirubin 0.40 mg/dL (0.1-1.2) 12/13/19 07:48 AST 27 units/L (5-40) 12/13/19 07:48 ALT 26 units/L (7-56) 12/13/19 07:48 Alkaline Phosphatase 316 units/L (35-129) H 12/13/19 07:48 Ammonia 42.0 umol/L (25-60) 11/29/19 13:41 Total Creatine Kinase 139 units/L (30-135) H 11/22/19 23:27 CK-MB (CK-2) 8.3 ng/mL (0.0-4.0) H 11/22/19 23:27 CK-MB (CK-2) Rel Index 5.9 (0-4) H 11/22/19 23:27 Troponin T < 0.010 ng/mL (0.00-0.029) 11/22/19 23:27 Total Protein 6.8 g/dL (6.3-8.2) 12/13/19 07:48 Albumin 2.4 g/dL (3.9-5) L 12/13/19 07:48 Albumin/Globulin Ratio 0.5 % 12/13/19 07:48 Lipase 18 units/L (13-60) 11/23/19 00:34 Procalcitonin 1.09 ng/mL (<0.15) 11/23/19 04:53 TSH 1.010 mlU/mL (0.270-4.200) 02/12/20 07:36 Free T4 1.08 ng/dL (0.76-1.46) 02/12/20 07:36 Urine Color Yellow (Yellow) 12/16/19 Unknown Urine Turbidity Slightly-cloudy (Clear) 12/16/19 Unknown Urine pH 5.0 (5.0-7.0) 12/16/19 Unknown Ur Specific [place] 1.018 (1.003-1.030) 12/16/19 Unknown Urine Protein 30 mg/dl mg/dL (Negative) 12/16/19 Unknown Urine Glucose (UA) Neg mg/dL (Negative) 12/16/19 Unknown Urine Ketones Neg mg/dL (Negative) 12/16/19 Unknown Urine Blood Sm (Negative) 12/16/19 Unknown Urine Nitrite Neg (Negative) 12/16/19 Unknown Urine Bilirubin Neg (Negative) 12/16/19 Unknown Urine Urobilinogen < 2.0 mg/dL (<2.0) 12/16/19 Unknown Ur Leukocyte Esterase Neg (Negative) 12/16/19 Unknown Urine WBC (Auto) 6.0 /HPF (0.0-6.0) 12/16/19 Unknown Urine RBC (Auto) 9.0 /HPF (0.0-6.0) 12/16/19 Unknown U Epithel Cells (Auto) < 1.0 /HPF (0-13.0) 12/16/19 Unknown Urine Bacteria (Auto) 2+ /HPF (Negative) 11/22/19 23:17 Hyaline Casts 3 /LPF 12/16/19 Unknown Granular Casts 3 /LPF 12/16/19 Unknown Urine Mucus Few /HPF 12/16/19 Unknown Vancomycin Trough 33.8 ug/mL (5.0-20.0) H 12/21/19 08:56 Random Vancomycin 16.2 ug/mL (0-40.0) 12/24/19 04:31 Salicylates < 0.3 mg/dL (2.8-20.0) L 11/22/19 23:27 Urine Opiates Screen Presumptive negative 11/22/19 23:17 Urine Methadone Screen Presumptive negative 11/22/19 23:17 Acetaminophen < 5.0 ug/mL (10.0-30.0) L 11/22/19 23:27 Ur Barbiturates Screen Presumptive negative 11/22/19 23:17 Ur Phencyclidine Scrn Presumptive negative 11/22/19 23:17 Ur Amphetamines Screen Presumptive negative 11/22/19 23:17 U Benzodiazepines Scrn Presumptive negative 11/22/19 23:17 Urine Cocaine Screen Presumptive negative 11/22/19 23:17 U Marijuana (THC) Screen Presumptive negative 11/22/19 23:17 Drugs of Abuse Note Disclamer 11/22/19 23:17 Plasma/Serum Alcohol 0.08 % (0-0.07) H 11/22/19 23:27 Coronavirus (PCR) Negative (Negative) 02/05/20 07:50 Hepatitis A IgM Ab Non-reactive (NonReactive) 11/23/19 01:19 Hep Bs Antigen Non-reactive (Negative) 11/23/19 01:19 Hep B Core IgM Ab Non-reactive (NonReactive) 11/23/19 01:19 Hepatitis C Antibody Non-reactive (NonReactive) 11/23/19 01:19 Blood Type O POSITIVE 12/21/19 14:54 Antibody Screen Negative 12/21/19 14:54 Crossmatch See Detail 12/21/19 14:54 Microbiology: Microbiology 02/17/20 15:20 Tracheal Aspirate Sputum Culture - Preliminary Gram Negative Rashaun - Diagnostic Impressions Diagnostic Impressions: Echocardiogram 11/23/19 03:58 Transthoracic Echocardiogram Indication: Cardiac arrest BP: 131/89 HR: 115 Conclusions *The study quality is technically difficult. *Global left ventricular wall motion and contractility are within normal limits. *The estimated ejection fraction is 55-60%. *Abnormal left ventricular diastolic filling is observed, consistent with impaired relaxation. *There is no pericardial effusion. Findings Procedure Info: The study quality is technically difficult. The study was technically limited due to the patient's inability to lay in the left lateral decubitus position. Left Ventricle: The left ventricular chamber size is normal. There is no left ventricular hypertrophy. Global left ventricular wall motion and contractility are within normal limits. Global left ventricular systolic function is normal. The estimated ejection fraction is 55-60%. Abnormal left ventricular diastolic filling is observed, consistent with impaired relaxation. Left Atrium: The left atrial chamber size is normal. Aortic Valve: The aortic valve leaflets are mildly thickened. Mitral Valve: The mitral valve leaflets are mildly thickened. There is no evidence of mitral regurgitation. Tricuspid Valve: The tricuspid valve leaflets are normal. There is trace tricuspid regurgitation. The right ventricular systolic pressure is calculated at 33 mmHg. Pulmonic Valve: The pulmonic valve appears normal. Pericardium: The pericardium appears normal. There is no pericardial effusion. Aorta: The aorta appears normal. Venous: The inferior vena cava appears normal in size. Measurements Chambers 2D Name Value Normal Range IVSd (2D) 0.94 cm (0.6 - 1.1) LVPWd (2D) 0.81 cm (0.6 - 1.1) LVIDd (2D) 3.6 cm (3.7 - 5.6) LVIDs (2D) 2.27 cm (2 - 3.8) LV FS (2D) 36.93 % - EF Teichholz (2D) 67.76 % - Ao root diameter (2D) 3.03 cm (2 - 3.7) Volumes/Mass Name Value Normal Range LA ESV SP 4CH (A/L) 16.89 ml - LA ESV SP 4CH (MOD) 15.52 ml - Diastolic/Systolic Function Name Value Normal Range MV E-wave Vmax 0.55 m/sec - MV deceleration time 200.89 msec - MV A-wave Vmax 0.68 m/sec - MV E:A ratio 0.82 ratio - Aortic Valve Name Value Normal Range AV Vmax 1.1 m/sec - AV VTI 15.9 cm - AV peak gradient 4.86 mmHg - AV mean gradient 2.59 mmHg - LVOT diameter 2 cm - LVOT Vmax 1.03 m/sec - LVOT VTI 15.87 cm - LVOT peak gradient 4.24 mmHg - LVOT mean gradient 2.41 mmHg - SV LVOT 49.77 ml - JOSÉ MIGUEL (continuity Vmax) 2.93 cm2 - JOSÉ MIGUEL (continuity VTI) 3.13 cm2 - Tricuspid Valve Name Value Normal Range TR Vmax 2.74 m/sec - TR peak gradient 303 mmHg - RAP 3 mmHg - RVSP 33 mmHg - IVC diameter 1.77 cm (1.2 - 2.3) Pulmonic Valve/Qp:Qs Name Value Normal Range PV Vmax 0.77 m/sec - PV peak gradient 2.4 mmHg - PV acceleration time 114.18 msec - Echocardiogram Limited Views 12/17/19 14:53 Transthoracic Echocardiogram Indication: R/O Vegetations BP: 144/83 HR: 133 Conclusions *Global left ventricular systolic function is mildly decreased. *The estimated ejection fraction is 45-50%. *A trivial pericardial effusion is visualized. Findings Left Ventricle: The left ventricular chamber size is normal. Global left ventricular systolic function is mildly decreased. The estimated ejection fraction is 45-50%. Left Atrium: The left atrial chamber size is normal. Right Ventricle: The right ventricular cavity size is normal. Right Atrium: The right atrial cavity size is normal. Aortic Valve: The aortic valve is not well visualized. There is no evidence of aortic regurgitation. Mitral Valve: The mitral valve leaflets are mildly thickened. There is trace of mitral regurgitation. Tricuspid Valve: The tricuspid valve leaflets are mildly thickened. There is trace tricuspid regurgitation. The right ventricular systolic pressure is calculated at 29 mmHg. Pulmonic Valve: The pulmonic valve is not well visualized. There is no evidence of pulmonic regurgitation. Pericardium: A trivial pericardial effusion is visualized. Aorta: There is no dilatation of the ascending aorta. There is no dilatation of the aortic root. Venous: The inferior vena cava appears normal in size. There is a greater than 50% respiratory change in the inferior vena cava dimension. Measurements Chambers 2D Name Value Normal Range IVSd (2D) 0.83 cm (0.6 - 1.1) LVPWd (2D) 0.98 cm (0.6 - 1.1) LVIDd (2D) 3.71 cm (3.7 - 5.6) LVIDs (2D) 2.93 cm (2 - 3.8) LV FS (2D) 21.12 % - EF Teichholz (2D) 43.71 % - Ao root diameter (2D) 3.02 cm (2 - 3.7) Volumes/Mass Name Value Normal Range LA ESV SP 4CH (A/L) 36.8 ml - LA ESV SP 2CH (A/L) 45.89 ml - LA ESV BP (A/L) 42.35 ml - LA ESV BP (A/L) index 26.63 ml/m2 - LA ESV SP 4CH (MOD) 34.42 ml - LA ESV SP 2CH (MOD) 44.21 ml - LA ESV BP (MOD) 39.82 ml - LA ESV BP (MOD) index 25.05 ml/m2 - Aortic Valve Name Value Normal Range LVOT diameter 1.63 cm - Tricuspid Valve Name Value Normal Range TR Vmax 2.56 m/sec - TR peak gradient 26 mmHg - RAP 3 mmHg - RVSP 29 mmHg - IVC diameter 1.83 cm (1.2 - 2.3) Dela Cruz/IV: Voiding Method Incontinent IV Catheter Type [Forearm] Peripheral IV IV Catheter Type [Left Forearm INT / Saline Lock ] IV Catheter Type [Right Peripheral IV Antecubital] IV Catheter Type [Right Hand] Peripheral IV IV Catheter Type [Right Wrist] Peripheral IV IV Catheter Type [Left Wrist] Peripheral IV IV Catheter Type [Left Peripheral IV Antecubital] IV Catheter Type [Right INT / Saline Lock Forearm] IV Catheter Type [Left Hand] Peripheral IV Active Medications - Current Medications Current Medications: Generic Name Dose Route Start Last Admin Trade Name Freq PRN Reason Stop Dose Admin Acetaminophen 650 mg 12/06/19 10:25 02/18/20 22:08 Tylenol FEEDTUBE 650 mg Q6H PRN Administration TEMP >/=100.3 Acetylcysteine 200 mg 02/16/20 20:00 02/19/20 08:14 Mucomyst Inhalation INHALATION Not Given Q12HRT LUCHO Lipase/Protease/Amylase 1 each 11/23/19 11:[address] 10,500 Unit FEEDTUBE PRN PRN Use w/ sod bicarb for FT Bisacodyl 10 mg 02/06/20 13:57 Dulcolax MA QDAY PRN Constipation unrelieved by MOM Docusate Sodium 100 mg 02/18/20 22:00 02/19/20 09:36 Colace FEEDTUBE 100 mg BID LUCHO Administration Glycopyrrolate 2 mg 12/31/19 20:00 02/19/20 09:36 Robinul PO 2 mg TID LUCHO Administration Hydralazine HCl 10 mg 11/24/19 00:45 12/18/19 13:25 Apresoline IV 10 mg Q6H PRN Administration SBP > 160 Hydroxyzine Pamoate 25 mg 12/06/19 10:00 02/19/20 09:36 Vistaril PO 25 mg BID LUCHO Administration Lansoprazole 30 mg 11/27/19 10:00 02/19/20 09:36 Prevacid Solutab FEEDTUBE 30 mg QDAY LUCHO Administration Levalbuterol HCl 0.63 mg 02/17/20 00:00 02/19/20 13:34 Xopenex IH 0.63 mg Q8HRT LUCHO Administration Levetiracetam 500 mg 11/29/19 10:00 02/19/20 09:36 Keppra PO 500 mg BID LUCHO Administration Mirtazapine 30 mg 12/06/19 10:00 02/19/20 09:36 Remeron PO 30 mg DAILY LUCHO Administration Nicotine 21 mg 02/16/20 13:00 02/19/20 09:36 Habitrol TD 21 mg QDAY [facility] Administration Ondansetron HCl 4 mg 12/10/19 07:53 02/05/20 22:06 Zofran IV 4 mg Q4H PRN Administration Nausea And Vomiting Polyethylene Glycol 17 gm 02/06/20 13:57 Miralax 3350 PO QDAY PRN Constipation Quetiapine Fumarate 100 mg 01/09/20 21:41 02/18/20 22:07 Seroquel FEEDTUBE 100 mg QHS LUCHO Administration Scopolamine 1 each 02/08/20 15:00 02/17/20 15:02 Transderm-Scop TD Not Given Q3D LUCHO Sertraline HCl 25 mg 01/01/20 10:00 02/18/20 10:00 Zoloft PO 25 mg QDAY LUCHO Administration Simple Syrup 15 ml 11/23/19 11:50 Simple Syrup FEEDTUBE PRN PRN Hypoglycemia BG<70 Simple Syrup 30 ml 11/23/19 11:50 Simple Syrup FEEDTUBE PRN PRN Hypoglycemia Sodium Bicarbonate 325 mg 11/23/19 11:50 Sodium Bicarbonate FEEDTUBE PRN PRN For Clogged Feeding Tube Nutrition/Malnutrition Assess - Dietary Evaluation Nutrition/Malnutrition Findings: Nutrition Notes Start: 11/23/19 11:29 Freq: Status: Active Protocol: Document 02/14/20 14:45 LM (Rec: 02/14/20 14:48 LM [email or web address]) Nutrition Notes Initial or Follow up Reassessment Current Diagnosis Hypertension Other Pertinent Diagnosis Cardaic arrest, ETOH dependence, UTI Current Diet Jevity 1.2 at 60ml/hr Labs/Tests Reviewed Pertinent Medications Reviewed Height 5 ft 6 in Weight 49.2 kg [place] Body Weight (kg) 59.09 BMI 17.5 Subjective/Other Information TF running at 60ml/hr and toleratting TF per RN. Percent of energy/protein needs met: 95%/100% Burn Absent Trauma Absent GI Symptoms None Current % PO Negligible Interpretation of Weight Loss (severe) >2% in 1 week Muscle Mass Mild Depletion (non-severe) #2 Nutrition Diagnosis Malnutrition Diagnosis Progress(for reassessment Continues documentation) #1 Nutrition Diagnosis Inadequate oral intake Diagnosis Progress(for reassessment Continues documentation) Is patient on ventilator? No Is Patient Ambulatory and/or Out of Bed No REE-([place]-confined to bed) 1335.096 Kcal/Kg value to use for calculation 37 Approximate Energy Requirements Using 1820 kcal/Kg Calculation Used for Recommendations Kcal/kg Additional Notes Protein: 60-75g (1.2-1.5g/kg) Fluid: 1 ml/kcal Nutrition Intervention Change Diet Order: Continue TF Nutrition Support: Change to Jevity 1.2 at 60ml/ hr Flush 100ml q4h Kcal 1,728 Protein (gm) 80 Fluid (mL) 1,162 Goal #1 TF tolerance Goal #2 Meet at least 80% of energy and protein needs via TF Anticipated Discharge Needs: TF Follow-Up By: 02/20/20 Additional Comments F/U for TF tolerance, wt
[2020-02-19] MEDS: SERTRALINE 50 MG TAB PO SCH (16:44)
[2020-02-19] MEDS: ACETAMINOPHEN 325 MG/10.15 ML ORAL LIQD UNIT DOSE FEEDTUBE PRN (22:00)
[2020-02-19] MEDS: QUEtiapine 100 MG TAB FEEDTUBE SCH (22:00)
[2020-02-20] MEDS: LEVALBUTEROL 0.63 MG/3 ML NEBU IH SCH ×3 (02:16→16:48)
[2020-02-20] MEDS: ACETYLCYSTEINE 20% 200 MG/1 ML *FOR INHALATION USE INHALATION SCH (09:21)
[2020-02-20] MEDS: SERTRALINE 50 MG TAB PO SCH (11:07)
[2020-02-20] MEDS: levETIRAcetam 500 MG/5 ML ORAL LIQD PO SCH ×2 (11:07→21:45)
[2020-02-20] MEDS: DOCUSATE SODIUM 100 MG/10 ML ORAL LIQD FEEDTUBE SCH ×2 (11:07→21:45)
[2020-02-20] MEDS: NICOTINE 21 MG/24 HR PATCH TD SCH (11:07)
[2020-02-20] MEDS: LANSOPRAZOLE 30 MG SOLUTAB FEEDTUBE SCH (11:07)
[2020-02-20] MEDS: MIRTAZAPINE 30 MG TAB PO SCH (11:07)
[2020-02-20] MEDS: GLYCOPYRROLATE 1 MG TAB PO SCH ×3 (11:07→21:45)
[2020-02-20] MEDS: hydrOXYzine PAMOATE 25 MG CAP PO SCH ×2 (11:07→21:45)
--- NOTE | 2020-02-20 13:55 | Progress Note ---
Assessment and Plan Patient awake. Patient still Confused and resting better to day.Patient S/P trach. Patient is on Trach collar, FIO2 28%. O2 saturation 95%. No acute respiratory distress. Wound around trach tube. Recommend cleaning and tracheostomy care. Patient afebrile and has mild leukocytosis. - Patient Problems (1) Acute respiratory failure Current Visit: Yes Status: Acute Qualifiers: Respiratory failure complication: hypoxia Qualified Code(s): J96.01 - Acute respiratory failure with hypoxia Plan to address problem: S/P Tracheostomy. Presently on trach collar, FIO2 28% and. O2 saturation 95%. Recommend albuterol/atrovent aerosol treatments q 6 hours. Continue Mucomist. Respiratory suctioning. Trach care. Mobility protocol. (2) Alcohol abuse Current Visit: Yes Status: Acute Plan to address problem: Management as per primary care. (3) Cardiac arrest with successful resuscitation Current Visit: Yes Status: Acute Plan to address problem: Patient successfully resucitated. Alert, awake (4) Increased ammonia level Current Visit: Yes Status: Acute Plan to address problem: Management as per primary care. (5) Seizure disorder Current Visit: Yes Status: Acute Plan to address problem: Management as per primary care and neurology. (6) HTN (hypertension) Current Visit: No Status: Acute Plan to address problem: Management as per primary care. Subjective Date of service: 02/20/20 Principal diagnosis: Ac cardiopulmonary arrest; Ac hypoxemic resp failure; Acute encephalopathy Interval history: Patient awake. Patient still Confused and resting better to day.Patient S/P trach. Patient is on Trach collar, FIO2 28%. O2 saturation 95%. No acute respiratory distress. Wound around trach tube. Recommend cleaning and tracheostomy care. Patient afebrile and has mild leukocytosis. Objective Vital Signs - 12hr 02/20/20 02/20/20 02/20/20 02:17 03:55 07:52 Temperature 97.5 F L 98.1 F Pulse Rate 85 Pulse Rate [ 114 H Anterior Bilateral Throughout] Respiratory 18 18 Rate Respiratory 18 Rate [Anterior Bilateral Throughout] Blood Pressure 129/88 130/84 O2 Sat by Pulse 95 Oximetry O2 Sat by Pulse Oximetry [ Assessment] 02/20/20 02/20/20 02/20/20 09:20 10:00 10:11 Temperature Pulse Rate 107 H Pulse Rate [ 102 H Anterior Bilateral Throughout] Respiratory Rate Respiratory 18 Rate [Anterior Bilateral Throughout] Blood Pressure O2 Sat by Pulse 95 Oximetry O2 Sat by Pulse 98 Oximetry [ Assessment] Constitutional: no acute distress, alert, other (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, with midline tracheostomy and with normal respiratory effort at rest) Eyes: non-icteric ENT: oropharynx moist, other (s/p trach) Neck: supple, no lymphadenopathy, no JVD Effort: normal Ascultation: Bilateral: diminished breath sounds, rhonchi Percussion: Bilateral: not dull Cardiovascular: regular rate and rhythm (tachycardia), other (S1,S2) Gastrointestinal: normoactive bowel sounds, soft, non-tender, non-distended Integumentary: normal Extremities: no cyanosis, no edema, pulses normal, no ischemia or petechiae Neurologic: non-focal exam, pupils equal and round, unable to assess Psychiatric: anxious, other (Agitated.) CBC and BMP: 02/17/20 07:57 02/17/20 07:57 ABG, PT/INR, D-dimer: ABG ABG pH 7.429 pH Units (7.350-7.450) 01/09/20 08:51 ABG pCO2 39.1 mm Hg 01/09/20 08:51 ABG pO2 94.3 mm Hg (80.0-90.0) H 01/09/20 08:51 ABG O2 Saturation 97.4 % (95.0-99.0) 01/09/20 08:51 PT/INR, D-dimer PT 17.0 Sec. (12.2-14.9) H 11/23/19 03:47 INR 1.36 (0.87-1.13) H 11/23/19 03:47 Abnormal lab findings: Abnormal Labs 11/22/19 11/22/19 11/22/19 23:17 23:18 23:27 WBC 21.2 H RBC 3.59 L Hgb 9.8 L Hct MCH 27 L RDW 18.6 H Plt Count 454 H Lymph % (Auto) Sunflower % (Auto) Sunflower # Baso # Seg Neutrophils % Seg Neuts % (Manual) 86.0 H Lymphocytes % (Manual) 9.0 L Monocytes % (Manual) Seg Neutrophils # Seg Neutrophils # Man 18.2 H Lymphocytes # (Manual) Monocytes # (Manual) 1.1 H Eosinophils # (Manual) Basophils # (Manual) PT INR APTT ABG pH ABG pO2 ABG HCO3 ABG O2 Saturation ABG Base Excess ABG Hemoglobin Oxyhemoglobin Sodium Potassium Chloride Carbon Dioxide BUN Creatinine Glucose POC Glucose 53 L Lactic Acid Calcium Ionized Calcium Phosphorus Magnesium Total Bilirubin AST ALT Alkaline Phosphatase Ammonia Total Creatine Kinase CK-MB (CK-2) CK-MB (CK-2) Rel Index Total Protein Albumin Urine WBC (Auto) 40.0 H Vancomycin Trough Salicylates Acetaminophen Plasma/Serum Alcohol Crossmatch 11/22/19 11/22/19 11/22/19 23:27 23:27 23:27 WBC RBC Hgb Hct MCH RDW Plt Count Lymph % (Auto) Sunflower % (Auto) Sunflower # Baso # Seg Neutrophils % Seg Neuts % (Manual) Lymphocytes % (Manual) Monocytes % (Manual) Seg Neutrophils # Seg Neutrophils # Man Lymphocytes # (Manual) Monocytes # (Manual) Eosinophils # (Manual) Basophils # (Manual) PT INR APTT ABG pH ABG pO2 ABG HCO3 ABG O2 Saturation ABG Base Excess ABG Hemoglobin Oxyhemoglobin Sodium Potassium 2.4 L* Chloride 85.1 L Carbon Dioxide 19 L BUN Creatinine 0.5 L Glucose 261 H POC Glucose Lactic Acid Calcium Ionized Calcium Phosphorus Magnesium Total Bilirubin AST 609 H ALT 152 H Alkaline Phosphatase 160 H Ammonia 117.0 H Total Creatine Kinase 139 H CK-MB (CK-2) 8.3 H CK-MB (CK-2) Rel Index 5.9 H Total Protein Albumin 3.6 L Urine WBC (Auto) Vancomycin Trough Salicylates < 0.3 L Acetaminophen Plasma/Serum Alcohol Crossmatch 11/22/19 11/22/19 11/23/19 23:27 23:27 01:10 WBC RBC Hgb Hct MCH RDW Plt Count Lymph % (Auto) Sunflower % (Auto) Sunflower # Baso # Seg Neutrophils % Seg Neuts % (Manual) Lymphocytes % (Manual) Monocytes % (Manual) Seg Neutrophils # Seg Neutrophils # Man Lymphocytes # (Manual) Monocytes # (Manual) Eosinophils # (Manual) Basophils # (Manual) PT INR APTT ABG pH 7.273 L ABG pO2 209.7 H ABG HCO3 ABG O2 Saturation 99.2 H ABG Base Excess -3.9 L ABG Hemoglobin 10.6 L Oxyhemoglobin 93.9 L Sodium Potassium Chloride Carbon Dioxide BUN Creatinine Glucose POC Glucose Lactic Acid Calcium Ionized Calcium Phosphorus Magnesium Total Bilirubin AST ALT Alkaline Phosphatase Ammonia Total Creatine Kinase CK-MB (CK-2) CK-MB (CK-2) Rel Index Total Protein Albumin Urine WBC (Auto) Vancomycin Trough Salicylates Acetaminophen < 5.0 L Plasma/Serum Alcohol 0.08 H Crossmatch 11/23/19 11/23/19 11/23/19 01:19 01:19 03:47 WBC RBC Hgb Hct MCH RDW Plt Count Lymph % (Auto) Sunflower % (Auto) Sunflower # Baso # Seg Neutrophils % Seg Neuts % (Manual) Lymphocytes % (Manual) Monocytes % (Manual) Seg Neutrophils # Seg Neutrophils # Man Lymphocytes # (Manual) Monocytes # (Manual) Eosinophils # (Manual) Basophils # (Manual) PT 16.3 H INR 1.29 H APTT ABG pH ABG pO2 ABG HCO3 ABG O2 Saturation ABG Base Excess ABG Hemoglobin Oxyhemoglobin Sodium Potassium Chloride Carbon Dioxide BUN Creatinine Glucose POC Glucose Lactic Acid 2.10 H* 5.00 H* Calcium Ionized Calcium Phosphorus Magnesium Total Bilirubin AST ALT Alkaline Phosphatase Ammonia Total Creatine Kinase CK-MB (CK-2) CK-MB (CK-2) Rel Index Total Protein Albumin Urine WBC (Auto) Vancomycin Trough Salicylates Acetaminophen Plasma/Serum Alcohol Crossmatch 11/23/19 11/23/19 11/23/19 03:47 03:47 04:53 WBC RBC Hgb 9.4 L Hct MCH RDW Plt Count Lymph % (Auto) Sunflower % (Auto) Sunflower # Baso # Seg Neutrophils % Seg Neuts % (Manual) Lymphocytes % (Manual) Monocytes % (Manual) Seg Neutrophils # Seg Neutrophils # Man Lymphocytes # (Manual) Monocytes # (Manual) Eosinophils # (Manual) Basophils # (Manual) PT 17.0 H INR 1.36 H APTT 128.2 H* ABG pH ABG pO2 ABG HCO3 ABG O2 Saturation ABG Base Excess ABG Hemoglobin Oxyhemoglobin Sodium Potassium Chloride Carbon Dioxide 18 L BUN Creatinine 0.5 L Glucose 105 H POC Glucose Lactic Acid Calcium 8.3 L Ionized Calcium Phosphorus 2.40 L Magnesium Total Bilirubin 1.30 H AST 761 H ALT 158 H Alkaline Phosphatase 143 H Ammonia Total Creatine Kinase CK-MB (CK-2) CK-MB (CK-2) Rel Index Total Protein Albumin 2.8 L Urine WBC (Auto) Vancomycin Trough Salicylates Acetaminophen Plasma/Serum Alcohol Crossmatch 11/23/19 11/23/19 11/23/19 05:12 06:32 06:32 WBC 16.8 H RBC 3.31 L Hgb 8.9 L Hct 28.7 L MCH 27 L RDW 18.6 H Plt Count Lymph % (Auto) Sunflower % (Auto) Sunflower # Baso # Seg Neutrophils % Seg Neuts % (Manual) 94.0 H Lymphocytes % (Manual) 1.0 L Monocytes % (Manual) Seg Neutrophils # Seg Neutrophils # Man 15.8 H Lymphocytes # (Manual) 0.2 L Monocytes # (Manual) Eosinophils # (Manual) Basophils # (Manual) PT INR APTT ABG pH ABG pO2 ABG HCO3 ABG O2 Saturation ABG Base Excess -3.2 L ABG Hemoglobin 9.0 L Oxyhemoglobin 93.6 L Sodium Potassium Chloride Carbon Dioxide BUN Creatinine Glucose POC Glucose Lactic Acid Calcium Ionized Calcium 4.5 L Phosphorus Magnesium Total Bilirubin AST ALT Alkaline Phosphatase Ammonia Total Creatine Kinase CK-MB (CK-2) CK-MB (CK-2) Rel Index Total Protein Albumin Urine WBC (Auto) Vancomycin Trough Salicylates Acetaminophen Plasma/Serum Alcohol Crossmatch 11/23/19 11/24/19 11/24/19 06:32 04:35 04:35 WBC RBC Hgb Hct MCH RDW Plt Count Lymph % (Auto) Sunflower % (Auto) Sunflower # Baso # Seg Neutrophils % Seg Neuts % (Manual) Lymphocytes % (Manual) Monocytes % (Manual) Seg Neutrophils # Seg Neutrophils # Man Lymphocytes # (Manual) Monocytes # (Manual) Eosinophils # (Manual) Basophils # (Manual) PT INR APTT ABG pH ABG pO2 ABG HCO3 ABG O2 Saturation ABG Base Excess ABG Hemoglobin Oxyhemoglobin Sodium Potassium Chloride Carbon Dioxide BUN Creatinine Glucose POC Glucose Lactic Acid 3.30 H* Calcium Ionized Calcium Phosphorus Magnesium 1.40 L Total Bilirubin AST ALT Alkaline Phosphatase Ammonia 98.0 H Total Creatine Kinase CK-MB (CK-2) CK-MB (CK-2) Rel Index Total Protein Albumin Urine WBC (Auto) Vancomycin Trough Salicylates Acetaminophen Plasma/Serum Alcohol Crossmatch 11/24/19 11/25/19 11/25/19 05:22 04:34 05:05 WBC 17.3 H RBC 2.88 L Hgb 7.8 L Hct 24.6 L MCH 27 L RDW 18.5 H Plt Count Lymph % (Auto) 7.7 L Sunflower % (Auto) 9.7 H Sunflower # 1.7 H Baso # Seg Neutrophils % 82.2 H Seg Neuts % (Manual) Lymphocytes % (Manual) Monocytes % (Manual) Seg Neutrophils # 14.2 H Seg Neutrophils # Man Lymphocytes # (Manual) Monocytes # (Manual) Eosinophils # (Manual) Basophils # (Manual) PT INR APTT ABG pH 7.475 H ABG pO2 ABG HCO3 29.4 H 32.3 H ABG O2 Saturation ABG Base Excess 5.4 H 6.9 H ABG Hemoglobin 9.0 L 10.6 L Oxyhemoglobin 94.3 L Sodium Potassium Chloride Carbon Dioxide BUN Creatinine Glucose POC Glucose Lactic Acid Calcium Ionized Calcium Phosphorus Magnesium Total Bilirubin AST ALT Alkaline Phosphatase Ammonia Total Creatine Kinase CK-MB (CK-2) CK-MB (CK-2) Rel Index Total Protein Albumin Urine WBC (Auto) Vancomycin Trough Salicylates Acetaminophen Plasma/Serum Alcohol Crossmatch 11/25/19 11/25/19 11/26/19 05:05 22:46 03:31 WBC RBC Hgb Hct MCH RDW Plt Count Lymph % (Auto) Sunflower % (Auto) Sunflower # Baso # Seg Neutrophils % Seg Neuts % (Manual) Lymphocytes % (Manual) Monocytes % (Manual) Seg Neutrophils # Seg Neutrophils # Man Lymphocytes # (Manual) Monocytes # (Manual) Eosinophils # (Manual) Basophils # (Manual) PT INR APTT ABG pH 7.459 H ABG pO2 ABG HCO3 34.2 H ABG O2 Saturation ABG Base Excess 9.4 H ABG Hemoglobin 7.6 L Oxyhemoglobin 94.8 L Sodium 152 H D 147 H Potassium 2.3 L* D 2.8 L* D Chloride 107.8 H Carbon Dioxide 31 H D 33 H BUN Creatinine 0.6 L 0.6 L Glucose 148 H 177 H POC Glucose Lactic Acid Calcium Ionized Calcium Phosphorus Magnesium Total Bilirubin AST 105 H ALT 71 H Alkaline Phosphatase 155 H Ammonia Total Creatine Kinase CK-MB (CK-2) CK-MB (CK-2) Rel Index Total Protein 5.2 L D Albumin 2.9 L Urine WBC (Auto) Vancomycin Trough Salicylates Acetaminophen Plasma/Serum Alcohol Crossmatch 11/26/19 11/26/19 11/27/19 08:24 08:24 04:20 WBC 12.0 H RBC 3.00 L Hgb 8.0 L 9.3 L Hct 25.9 L 29.7 L MCH 27 L RDW 18.5 H Plt Count Lymph % (Auto) Sunflower % (Auto) Sunflower # Baso # Seg Neutrophils % Seg Neuts % (Manual) 89.0 H Lymphocytes % (Manual) 4.0 L Monocytes % (Manual) Seg Neutrophils # Seg Neutrophils # Man 10.7 H Lymphocytes # (Manual) 0.5 L Monocytes # (Manual) Eosinophils # (Manual) Basophils # (Manual) PT INR APTT ABG pH ABG pO2 ABG HCO3 ABG O2 Saturation ABG Base Excess ABG Hemoglobin Oxyhemoglobin Sodium 146 H Potassium 3.4 L D Chloride Carbon Dioxide BUN Creatinine 0.5 L Glucose 165 H POC Glucose Lactic Acid Calcium Ionized Calcium Phosphorus Magnesium Total Bilirubin AST 57 H ALT Alkaline Phosphatase 166 H Ammonia Total Creatine Kinase CK-MB (CK-2) CK-MB (CK-2) Rel Index Total Protein Albumin 2.9 L Urine WBC (Auto) Vancomycin Trough Salicylates Acetaminophen Plasma/Serum Alcohol Crossmatch 11/27/19 11/27/19 11/27/19 04:28 04:28 04:42 WBC RBC Hgb Hct MCH RDW Plt Count Lymph % (Auto) Sunflower % (Auto) Sunflower # Baso # Seg Neutrophils % Seg Neuts % (Manual) Lymphocytes % (Manual) Monocytes % (Manual) Seg Neutrophils # Seg Neutrophils # Man Lymphocytes # (Manual) Monocytes # (Manual) Eosinophils # (Manual) Basophils # (Manual) PT INR APTT ABG pH 7.470 H ABG pO2 74.0 L ABG HCO3 33.8 H ABG O2 Saturation ABG Base Excess 9.1 H ABG Hemoglobin 8.7 L Oxyhemoglobin 94.7 L Sodium 146 H Potassium 2.9 L* Chloride Carbon Dioxide BUN 25 H Creatinine Glucose 213 H POC Glucose Lactic Acid Calcium Ionized Calcium Phosphorus 1.00 L Magnesium Total Bilirubin AST ALT Alkaline Phosphatase Ammonia Total Creatine Kinase CK-MB (CK-2) CK-MB (CK-2) Rel Index Total Protein Albumin Urine WBC (Auto) Vancomycin Trough Salicylates Acetaminophen Plasma/Serum Alcohol Crossmatch 11/27/19 11/27/19 11/27/19 05:37 12:20 15:46 WBC RBC Hgb Hct MCH RDW Plt Count Lymph % (Auto) Sunflower % (Auto) Sunflower # Baso # Seg Neutrophils % Seg Neuts % (Manual) Lymphocytes % (Manual) Monocytes % (Manual) Seg Neutrophils # Seg Neutrophils # Man Lymphocytes # (Manual) Monocytes # (Manual) Eosinophils # (Manual) Basophils # (Manual) PT INR APTT ABG pH ABG pO2 ABG HCO3 ABG O2 Saturation ABG Base Excess ABG Hemoglobin Oxyhemoglobin Sodium 146 H Potassium 3.5 L D Chloride Carbon Dioxide BUN 24 H Creatinine 0.6 L Glucose 187 H POC Glucose 117 H 220 H Lactic Acid Calcium Ionized Calcium Phosphorus Magnesium Total Bilirubin AST ALT Alkaline Phosphatase Ammonia Total Creatine Kinase CK-MB (CK-2) CK-MB (CK-2) Rel Index Total Protein Albumin Urine WBC (Auto) Vancomycin Trough Salicylates Acetaminophen Plasma/Serum Alcohol Crossmatch 11/27/19 11/28/19 11/28/19 17:28 05:00 05:02 WBC RBC Hgb Hct MCH RDW Plt Count Lymph % (Auto) Sunflower % (Auto) Sunflower # Baso # Seg Neutrophils % Seg Neuts % (Manual) Lymphocytes % (Manual) Monocytes % (Manual) Seg Neutrophils # Seg Neutrophils # Man Lymphocytes # (Manual) Monocytes # (Manual) Eosinophils # (Manual) Basophils # (Manual) PT INR APTT ABG pH ABG pO2 72.4 L ABG HCO3 33.6 H ABG O2 Saturation 94.1 L ABG Base Excess 7.3 H ABG Hemoglobin Oxyhemoglobin 91.8 L Sodium 146 H Potassium 3.3 L Chloride Carbon Dioxide BUN 25 H Creatinine 0.6 L Glucose 176 H POC Glucose 198 H Lactic Acid Calcium Ionized Calcium Phosphorus Magnesium Total Bilirubin AST ALT Alkaline Phosphatase Ammonia Total Creatine Kinase CK-MB (CK-2) CK-MB (CK-2) Rel Index Total Protein Albumin Urine WBC (Auto) Vancomycin Trough Salicylates Acetaminophen Plasma/Serum Alcohol Crossmatch 11/28/19 11/28/19 11/29/19 05:02 18:55 10:43 WBC 15.2 H 19.0 H RBC 3.06 L 3.01 L Hgb 8.3 L 8.3 L Hct 27.0 L 26.4 L MCH 27 L RDW 19.0 H 19.7 H Plt Count 479 H 611 H Lymph % (Auto) Sunflower % (Auto) Sunflower # Baso # Seg Neutrophils % Seg Neuts % (Manual) 92.0 H Lymphocytes % (Manual) 2.0 L Monocytes % (Manual) Seg Neutrophils # Seg Neutrophils # Man 14.0 H Lymphocytes # (Manual) 0.3 L Monocytes # (Manual) Eosinophils # (Manual) Basophils # (Manual) PT INR APTT ABG pH ABG pO2 ABG HCO3 ABG O2 Saturation ABG Base Excess ABG Hemoglobin Oxyhemoglobin Sodium Potassium Chloride Carbon Dioxide BUN Creatinine Glucose POC Glucose 138 H Lactic Acid Calcium Ionized Calcium Phosphorus Magnesium Total Bilirubin AST ALT Alkaline Phosphatase Ammonia Total Creatine Kinase CK-MB (CK-2) CK-MB (CK-2) Rel Index Total Protein Albumin Urine WBC (Auto) Vancomycin Trough Salicylates Acetaminophen Plasma/Serum Alcohol Crossmatch 11/29/19 11/29/19 11/29/19 10:43 12:27 19:25 WBC RBC Hgb Hct MCH RDW Plt Count Lymph % (Auto) Sunflower % (Auto) Sunflower # Baso # Seg Neutrophils % Seg Neuts % (Manual) Lymphocytes % (Manual) Monocytes % (Manual) Seg Neutrophils # Seg Neutrophils # Man Lymphocytes # (Manual) Monocytes # (Manual) Eosinophils # (Manual) Basophils # (Manual) PT INR APTT ABG pH ABG pO2 ABG HCO3 ABG O2 Saturation ABG Base Excess ABG Hemoglobin Oxyhemoglobin Sodium Potassium 2.8 L* Chloride Carbon Dioxide BUN 20 H Creatinine 0.5 L Glucose 121 H POC Glucose 128 H 120 H Lactic Acid Calcium Ionized Calcium Phosphorus Magnesium Total Bilirubin AST ALT Alkaline Phosphatase Ammonia Total Creatine Kinase CK-MB (CK-2) CK-MB (CK-2) Rel Index Total Protein Albumin Urine WBC (Auto) Vancomycin Trough Salicylates Acetaminophen Plasma/Serum Alcohol Crossmatch 11/29/19 11/30/19 11/30/19 23:46 04:10 05:02 WBC RBC Hgb Hct MCH RDW Plt Count Lymph % (Auto) Sunflower % (Auto) Sunflower # Baso # Seg Neutrophils % Seg Neuts % (Manual) Lymphocytes % (Manual) Monocytes % (Manual) Seg Neutrophils # Seg Neutrophils # Man Lymphocytes # (Manual) Monocytes # (Manual) Eosinophils # (Manual) Basophils # (Manual) PT INR APTT ABG pH ABG pO2 76.3 L ABG HCO3 32.5 H ABG O2 Saturation ABG Base Excess 6.9 H ABG Hemoglobin 8.0 L Oxyhemoglobin 92.6 L Sodium Potassium Chloride Carbon Dioxide BUN Creatinine Glucose POC Glucose 116 H 128 H Lactic Acid Calcium Ionized Calcium Phosphorus Magnesium Total Bilirubin AST ALT Alkaline Phosphatase Ammonia Total Creatine Kinase CK-MB (CK-2) CK-MB (CK-2) Rel Index Total Protein Albumin Urine WBC (Auto) Vancomycin Trough Salicylates Acetaminophen Plasma/Serum Alcohol Crossmatch 11/30/19 11/30/19 11/30/19 05:25 05:25 12:59 WBC 18.4 H RBC 3.10 L Hgb 8.5 L Hct 27.5 L MCH 27 L RDW 20.9 H Plt Count 691 H Lymph % (Auto) 7.1 L Sunflower % (Auto) 7.7 H Sunflower # 1.4 H Baso # Seg Neutrophils % 83.4 H Seg Neuts % (Manual) Lymphocytes % (Manual) Monocytes % (Manual) Seg Neutrophils # 15.4 H Seg Neutrophils # Man Lymphocytes # (Manual) Monocytes # (Manual) Eosinophils # (Manual) Basophils # (Manual) PT INR APTT ABG pH ABG pO2 ABG HCO3 ABG O2 Saturation ABG Base Excess ABG Hemoglobin Oxyhemoglobin Sodium 146 H Potassium Chloride 107.2 H Carbon Dioxide BUN Creatinine 0.5 L Glucose 132 H POC Glucose 124 H Lactic Acid Calcium Ionized Calcium Phosphorus Magnesium Total Bilirubin AST 246 H ALT 274 H Alkaline Phosphatase 203 H Ammonia Total Creatine Kinase CK-MB (CK-2) CK-MB (CK-2) Rel Index Total Protein 5.4 L Albumin 2.9 L Urine WBC (Auto) Vancomycin Trough Salicylates Acetaminophen Plasma/Serum Alcohol Crossmatch 11/30/19 12/01/19 12/01/19 17:53 00:05 05:10 WBC RBC Hgb Hct MCH RDW Plt Count Lymph % (Auto) Sunflower % (Auto) Sunflower # Baso # Seg Neutrophils % Seg Neuts % (Manual) Lymphocytes % (Manual) Monocytes % (Manual) Seg Neutrophils # Seg Neutrophils # Man Lymphocytes # (Manual) Monocytes # (Manual) Eosinophils # (Manual) Basophils # (Manual) PT INR APTT ABG pH ABG pO2 ABG HCO3 ABG O2 Saturation ABG Base Excess ABG Hemoglobin Oxyhemoglobin Sodium Potassium Chloride Carbon Dioxide BUN Creatinine Glucose POC Glucose 113 H 143 H 145 H Lactic Acid Calcium Ionized Calcium Phosphorus Magnesium Total Bilirubin AST ALT Alkaline Phosphatase Ammonia Total Creatine Kinase CK-MB (CK-2) CK-MB (CK-2) Rel Index Total Protein Albumin Urine WBC (Auto) Vancomycin Trough Salicylates Acetaminophen Plasma/Serum Alcohol Crossmatch 12/01/19 12/01/19 12/01/19 05:33 08:23 08:23 WBC 22.7 H RBC 2.88 L Hgb 7.9 L Hct 25.2 L MCH 27 L RDW 21.0 H Plt Count 732 H Lymph % (Auto) Sunflower % (Auto) Sunflower # Baso # Seg Neutrophils % Seg Neuts % (Manual) 91.0 H Lymphocytes % (Manual) 3.0 L Monocytes % (Manual) Seg Neutrophils # Seg Neutrophils # Man 20.7 H Lymphocytes # (Manual) 0.7 L Monocytes # (Manual) 1.1 H Eosinophils # (Manual) Basophils # (Manual) PT INR APTT ABG pH ABG pO2 68.6 L ABG HCO3 34.1 H ABG O2 Saturation ABG Base Excess 9.0 H ABG Hemoglobin 6.5 L Oxyhemoglobin 94.7 L Sodium Potassium Chloride Carbon Dioxide BUN Creatinine 0.5 L Glucose 125 H POC Glucose Lactic Acid Calcium Ionized Calcium Phosphorus Magnesium Total Bilirubin AST ALT Alkaline Phosphatase Ammonia Total Creatine Kinase CK-MB (CK-2) CK-MB (CK-2) Rel Index Total Protein Albumin Urine WBC (Auto) Vancomycin Trough Salicylates Acetaminophen Plasma/Serum Alcohol Crossmatch 12/01/19 12/01/19 12/01/19 13:21 17:54 20:59 WBC RBC Hgb Hct MCH RDW Plt Count Lymph % (Auto) Sunflower % (Auto) Sunflower # Baso # Seg Neutrophils % Seg Neuts % (Manual) Lymphocytes % (Manual) Monocytes % (Manual) Seg Neutrophils # Seg Neutrophils # Man Lymphocytes # (Manual) Monocytes # (Manual) Eosinophils # (Manual) Basophils # (Manual) PT INR APTT ABG pH ABG pO2 78.3 L ABG HCO3 33.8 H ABG O2 Saturation 94.9 L ABG Base Excess 7.9 H ABG Hemoglobin 11.5 L Oxyhemoglobin 92.3 L Sodium Potassium Chloride Carbon Dioxide BUN Creatinine Glucose POC Glucose 111 H 115 H Lactic Acid Calcium Ionized Calcium Phosphorus Magnesium Total Bilirubin AST ALT Alkaline Phosphatase Ammonia Total Creatine Kinase CK-MB (CK-2) CK-MB (CK-2) Rel Index Total Protein Albumin Urine WBC (Auto) Vancomycin Trough Salicylates Acetaminophen Plasma/Serum Alcohol Crossmatch 12/02/19 12/03/19 12/04/19 12:55 20:00 04:26 WBC 15.2 H RBC 2.69 L Hgb 7.4 L Hct 23.6 L MCH 27 L RDW 19.9 H Plt Count 838 H Lymph % (Auto) Sunflower % (Auto) Sunflower # Baso # Seg Neutrophils % Seg Neuts % (Manual) Lymphocytes % (Manual) Monocytes % (Manual) Seg Neutrophils # Seg Neutrophils # Man Lymphocytes # (Manual) Monocytes # (Manual) Eosinophils # (Manual) Basophils # (Manual) PT INR APTT ABG pH ABG pO2 68.3 L ABG HCO3 33.5 H ABG O2 Saturation 93.5 L ABG Base Excess 8.4 H ABG Hemoglobin 7.3 L Oxyhemoglobin 90.9 L Sodium Potassium Chloride Carbon Dioxide BUN Creatinine Glucose POC Glucose 107 H Lactic Acid Calcium Ionized Calcium Phosphorus Magnesium Total Bilirubin AST ALT Alkaline Phosphatase Ammonia Total Creatine Kinase CK-MB (CK-2) CK-MB (CK-2) Rel Index Total Protein Albumin Urine WBC (Auto) Vancomycin Trough Salicylates Acetaminophen Plasma/Serum Alcohol Crossmatch 12/04/19 12/04/19 12/04/19 04:26 07:45 12:02 WBC 15.9 H RBC 2.88 L Hgb 7.9 L Hct 25.1 L MCH RDW 20.4 H Plt Count 839 H Lymph % (Auto) 11.3 L Sunflower % (Auto) 15.2 H Sunflower # 2.4 H Baso # Seg Neutrophils % 72.4 H Seg Neuts % (Manual) Lymphocytes % (Manual) Monocytes % (Manual) Seg Neutrophils # 11.5 H Seg Neutrophils # Man Lymphocytes # (Manual) Monocytes # (Manual) Eosinophils # (Manual) Basophils # (Manual) PT INR APTT ABG pH ABG pO2 ABG HCO3 ABG O2 Saturation ABG Base Excess ABG Hemoglobin Oxyhemoglobin Sodium Potassium Chloride 96.5 L Carbon Dioxide BUN 21 H Creatinine 0.6 L Glucose 107 H POC Glucose 138 H Lactic Acid Calcium Ionized Calcium Phosphorus Magnesium Total Bilirubin AST ALT Alkaline Phosphatase Ammonia Total Creatine Kinase CK-MB (CK-2) CK-MB (CK-2) Rel Index Total Protein Albumin Urine WBC (Auto) Vancomycin Trough Salicylates Acetaminophen Plasma/Serum Alcohol Crossmatch 12/04/19 12/05/19 12/05/19 18:16 11:55 18:36 WBC RBC Hgb Hct MCH RDW Plt Count Lymph % (Auto) Sunflower % (Auto) Sunflower # Baso # Seg Neutrophils % Seg Neuts % (Manual) Lymphocytes % (Manual) Monocytes % (Manual) Seg Neutrophils # Seg Neutrophils # Man Lymphocytes # (Manual) Monocytes # (Manual) Eosinophils # (Manual) Basophils # (Manual) PT INR APTT ABG pH ABG pO2 ABG HCO3 ABG O2 Saturation ABG Base Excess ABG Hemoglobin Oxyhemoglobin Sodium Potassium Chloride Carbon Dioxide BUN Creatinine Glucose POC Glucose 135 H 125 H 135 H Lactic Acid Calcium Ionized Calcium Phosphorus Magnesium Total Bilirubin AST ALT Alkaline Phosphatase Ammonia Total Creatine Kinase CK-MB (CK-2) CK-MB (CK-2) Rel Index Total Protein Albumin Urine WBC (Auto) Vancomycin Trough Salicylates Acetaminophen Plasma/Serum Alcohol Crossmatch 12/05/19 12/06/19 12/06/19 23:30 04:14 05:43 WBC RBC Hgb Hct MCH RDW Plt Count Lymph % (Auto) Sunflower % (Auto) Sunflower # Baso # Seg Neutrophils % Seg Neuts % (Manual) Lymphocytes % (Manual) Monocytes % (Manual) Seg Neutrophils # Seg Neutrophils # Man Lymphocytes # (Manual) Monocytes # (Manual) Eosinophils # (Manual) Basophils # (Manual) PT INR APTT ABG pH ABG pO2 ABG HCO3 ABG O2 Saturation ABG Base Excess ABG Hemoglobin Oxyhemoglobin Sodium Potassium 5.6 H Chloride 95.0 L Carbon Dioxide BUN 48 H Creatinine 1.3 H D Glucose POC Glucose 126 H 121 H Lactic Acid Calcium Ionized Calcium Phosphorus Magnesium Total Bilirubin AST 89 H ALT 98 H Alkaline Phosphatase 476 H Ammonia Total Creatine Kinase CK-MB (CK-2) CK-MB (CK-2) Rel Index Total Protein Albumin 2.8 L Urine WBC (Auto) Vancomycin Trough Salicylates Acetaminophen Plasma/Serum Alcohol Crossmatch 12/06/19 12/06/19 12/07/19 10:39 14:34 00:19 WBC 17.3 H RBC 2.60 L Hgb 7.1 L Hct 22.7 L MCH 27 L RDW 20.1 H Plt Count 832 H Lymph % (Auto) Sunflower % (Auto) Sunflower # Baso # Seg Neutrophils % Seg Neuts % (Manual) Lymphocytes % (Manual) Monocytes % (Manual) Seg Neutrophils # Seg Neutrophils # Man Lymphocytes # (Manual) Monocytes # (Manual) Eosinophils # (Manual) Basophils # (Manual) PT INR APTT ABG pH ABG pO2 ABG HCO3 ABG O2 Saturation ABG Base Excess ABG Hemoglobin Oxyhemoglobin Sodium Potassium Chloride Carbon Dioxide BUN Creatinine Glucose POC Glucose 128 H 136 H Lactic Acid Calcium Ionized Calcium Phosphorus Magnesium Total Bilirubin AST ALT Alkaline Phosphatase Ammonia Total Creatine Kinase CK-MB (CK-2) CK-MB (CK-2) Rel Index Total Protein Albumin Urine WBC (Auto) Vancomycin Trough Salicylates Acetaminophen Plasma/Serum Alcohol Crossmatch 12/07/19 12/07/19 12/07/19 03:44 03:44 05:53 WBC 16.2 H RBC 2.56 L Hgb 7.1 L Hct 22.3 L MCH RDW 19.4 H Plt Count 782 H Lymph % (Auto) Sunflower % (Auto) Sunflower # Baso # Seg Neutrophils % Seg Neuts % (Manual) Lymphocytes % (Manual) Monocytes % (Manual) Seg Neutrophils # Seg Neutrophils # Man Lymphocytes # (Manual) Monocytes # (Manual) Eosinophils # (Manual) Basophils # (Manual) PT INR APTT ABG pH ABG pO2 ABG HCO3 ABG O2 Saturation ABG Base Excess ABG Hemoglobin Oxyhemoglobin Sodium Potassium Chloride 95.6 L Carbon Dioxide BUN 56 H Creatinine 1.4 H Glucose 120 H POC Glucose 128 H Lactic Acid Calcium 10.3 H Ionized Calcium Phosphorus Magnesium Total Bilirubin AST ALT Alkaline Phosphatase Ammonia Total Creatine Kinase CK-MB (CK-2) CK-MB (CK-2) Rel Index Total Protein Albumin Urine WBC (Auto) Vancomycin Trough Salicylates Acetaminophen Plasma/Serum Alcohol Crossmatch 12/07/19 12/07/19 12/08/19 12:54 23:47 00:20 WBC RBC Hgb Hct MCH RDW Plt Count Lymph % (Auto) Sunflower % (Auto) Sunflower # Baso # Seg Neutrophils % Seg Neuts % (Manual) Lymphocytes % (Manual) Monocytes % (Manual) Seg Neutrophils # Seg Neutrophils # Man Lymphocytes # (Manual) Monocytes # (Manual) Eosinophils # (Manual) Basophils # (Manual) PT INR APTT ABG pH ABG pO2 ABG HCO3 ABG O2 Saturation ABG Base Excess ABG Hemoglobin Oxyhemoglobin Sodium Potassium Chloride Carbon Dioxide BUN Creatinine Glucose POC Glucose 128 H 130 H 124 H Lactic Acid Calcium Ionized Calcium Phosphorus Magnesium Total Bilirubin AST ALT Alkaline Phosphatase Ammonia Total Creatine Kinase CK-MB (CK-2) CK-MB (CK-2) Rel Index Total Protein Albumin Urine WBC (Auto) Vancomycin Trough Salicylates Acetaminophen Plasma/Serum Alcohol Crossmatch 12/08/19 12/08/19 12/08/19 06:38 12:04 18:26 WBC RBC Hgb Hct MCH RDW Plt Count Lymph % (Auto) Sunflower % (Auto) Sunflower # Baso # Seg Neutrophils % Seg Neuts % (Manual) Lymphocytes % (Manual) Monocytes % (Manual) Seg Neutrophils # Seg Neutrophils # Man Lymphocytes # (Manual) Monocytes # (Manual) Eosinophils # (Manual) Basophils # (Manual) PT INR APTT ABG pH ABG pO2 ABG HCO3 ABG O2 Saturation ABG Base Excess ABG Hemoglobin Oxyhemoglobin Sodium Potassium Chloride Carbon Dioxide BUN Creatinine Glucose POC Glucose 137 H 129 H 150 H Lactic Acid Calcium Ionized Calcium Phosphorus Magnesium Total Bilirubin AST ALT Alkaline Phosphatase Ammonia Total Creatine Kinase CK-MB (CK-2) CK-MB (CK-2) Rel Index Total Protein Albumin Urine WBC (Auto) Vancomycin Trough Salicylates Acetaminophen Plasma/Serum Alcohol Crossmatch 12/09/19 12/09/19 12/09/19 00:56 05:34 06:13 WBC RBC Hgb Hct MCH RDW Plt Count Lymph % (Auto) Sunflower % (Auto) Sunflower # Baso # Seg Neutrophils % Seg Neuts % (Manual) Lymphocytes % (Manual) Monocytes % (Manual) Seg Neutrophils # Seg Neutrophils # Man Lymphocytes # (Manual) Monocytes # (Manual) Eosinophils # (Manual) Basophils # (Manual) PT INR APTT ABG pH ABG pO2 ABG HCO3 ABG O2 Saturation ABG Base Excess ABG Hemoglobin Oxyhemoglobin Sodium 146 H Potassium Chloride Carbon Dioxide BUN 66 H Creatinine 1.9 H Glucose 116 H POC Glucose 130 H 130 H Lactic Acid Calcium Ionized Calcium Phosphorus Magnesium Total Bilirubin AST ALT Alkaline Phosphatase Ammonia Total Creatine Kinase CK-MB (CK-2) CK-MB (CK-2) Rel Index Total Protein Albumin Urine WBC (Auto) Vancomycin Trough Salicylates Acetaminophen Plasma/Serum Alcohol Crossmatch 12/09/19 12/09/19 12/10/19 11:52 17:50 00:14 WBC RBC Hgb Hct MCH RDW Plt Count Lymph % (Auto) Sunflower % (Auto) Sunflower # Baso # Seg Neutrophils % Seg Neuts % (Manual) Lymphocytes % (Manual) Monocytes % (Manual) Seg Neutrophils # Seg Neutrophils # Man Lymphocytes # (Manual) Monocytes # (Manual) Eosinophils # (Manual) Basophils # (Manual) PT INR APTT ABG pH ABG pO2 ABG HCO3 ABG O2 Saturation ABG Base Excess ABG Hemoglobin Oxyhemoglobin Sodium Potassium Chloride Carbon Dioxide BUN Creatinine Glucose POC Glucose 135 H 120 H 116 H Lactic Acid Calcium Ionized Calcium Phosphorus Magnesium Total Bilirubin AST ALT Alkaline Phosphatase Ammonia Total Creatine Kinase CK-MB (CK-2) CK-MB (CK-2) Rel Index Total Protein Albumin Urine WBC (Auto) Vancomycin Trough Salicylates Acetaminophen Plasma/Serum Alcohol Crossmatch 12/10/19 12/10/19 12/10/19 05:38 11:38 17:34 WBC RBC Hgb Hct MCH RDW Plt Count Lymph % (Auto) Sunflower % (Auto) Sunflower # Baso # Seg Neutrophils % Seg Neuts % (Manual) Lymphocytes % (Manual) Monocytes % (Manual) Seg Neutrophils # Seg Neutrophils # Man Lymphocytes # (Manual) Monocytes # (Manual) Eosinophils # (Manual) Basophils # (Manual) PT INR APTT ABG pH ABG pO2 ABG HCO3 ABG O2 Saturation ABG Base Excess ABG Hemoglobin Oxyhemoglobin Sodium Potassium Chloride Carbon Dioxide BUN Creatinine Glucose POC Glucose 115 H 112 H 130 H Lactic Acid Calcium Ionized Calcium Phosphorus Magnesium Total Bilirubin AST ALT Alkaline Phosphatase Ammonia Total Creatine Kinase CK-MB (CK-2) CK-MB (CK-2) Rel Index Total Protein Albumin Urine WBC (Auto) Vancomycin Trough Salicylates Acetaminophen Plasma/Serum Alcohol Crossmatch 12/11/19 12/11/19 12/11/19 00:20 05:31 12:22 WBC RBC Hgb Hct MCH RDW Plt Count Lymph % (Auto) Sunflower % (Auto) Sunflower # Baso # Seg Neutrophils % Seg Neuts % (Manual) Lymphocytes % (Manual) Monocytes % (Manual) Seg Neutrophils # Seg Neutrophils # Man Lymphocytes # (Manual) Monocytes # (Manual) Eosinophils # (Manual) Basophils # (Manual) PT INR APTT ABG pH ABG pO2 ABG HCO3 ABG O2 Saturation ABG Base Excess ABG Hemoglobin Oxyhemoglobin Sodium Potassium Chloride Carbon Dioxide BUN Creatinine Glucose POC Glucose 124 H 132 H 128 H Lactic Acid Calcium Ionized Calcium Phosphorus Magnesium Total Bilirubin AST ALT Alkaline Phosphatase Ammonia Total Creatine Kinase CK-MB (CK-2) CK-MB (CK-2) Rel Index Total Protein Albumin Urine WBC (Auto) Vancomycin Trough Salicylates Acetaminophen Plasma/Serum Alcohol Crossmatch 12/11/19 12/11/19 12/12/19 18:04 23:42 03:51 WBC RBC Hgb Hct MCH RDW Plt Count Lymph % (Auto) Sunflower % (Auto) Sunflower # Baso # Seg Neutrophils % Seg Neuts % (Manual) Lymphocytes % (Manual) Monocytes % (Manual) Seg Neutrophils # Seg Neutrophils # Man Lymphocytes # (Manual) Monocytes # (Manual) Eosinophils # (Manual) Basophils # (Manual) PT INR APTT ABG pH ABG pO2 ABG HCO3 ABG O2 Saturation ABG Base Excess ABG Hemoglobin Oxyhemoglobin Sodium 149 H Potassium Chloride Carbon Dioxide 20 L D BUN 77 H Creatinine 2.8 H Glucose POC Glucose 133 H 154 H Lactic Acid Calcium Ionized Calcium Phosphorus Magnesium Total Bilirubin AST ALT Alkaline Phosphatase Ammonia Total Creatine Kinase CK-MB (CK-2) CK-MB (CK-2) Rel Index Total Protein Albumin Urine WBC (Auto) Vancomycin Trough Salicylates Acetaminophen Plasma/Serum Alcohol Crossmatch 12/12/19 12/12/19 12/12/19 05:18 05:26 10:30 WBC 18.0 H RBC 2.51 L Hgb 6.8 L Hct 22.0 L MCH 27 L RDW 19.9 H Plt Count 582 H Lymph % (Auto) Sunflower % (Auto) Sunflower # Baso # Seg Neutrophils % Seg Neuts % (Manual) Lymphocytes % (Manual) Monocytes % (Manual) Seg Neutrophils # Seg Neutrophils # Man Lymphocytes # (Manual) Monocytes # (Manual) Eosinophils # (Manual) Basophils # (Manual) PT INR APTT ABG pH ABG pO2 ABG HCO3 ABG O2 Saturation ABG Base Excess ABG Hemoglobin Oxyhemoglobin Sodium Potassium Chloride Carbon Dioxide BUN Creatinine Glucose POC Glucose 135 H Lactic Acid Calcium Ionized Calcium Phosphorus Magnesium Total Bilirubin AST ALT Alkaline Phosphatase Ammonia Total Creatine Kinase CK-MB (CK-2) CK-MB (CK-2) Rel Index Total Protein Albumin Urine WBC (Auto) Vancomycin Trough Salicylates Acetaminophen Plasma/Serum Alcohol Crossmatch See Detail 12/12/19 12/12/19 12/12/19 11:44 18:10 23:21 WBC RBC Hgb Hct MCH RDW Plt Count Lymph % (Auto) Sunflower % (Auto) Sunflower # Baso # Seg Neutrophils % Seg Neuts % (Manual) Lymphocytes % (Manual) Monocytes % (Manual) Seg Neutrophils # Seg Neutrophils # Man Lymphocytes # (Manual) Monocytes # (Manual) Eosinophils # (Manual) Basophils # (Manual) PT INR APTT ABG pH ABG pO2 ABG HCO3 ABG O2 Saturation ABG Base Excess ABG Hemoglobin Oxyhemoglobin Sodium Potassium Chloride Carbon Dioxide BUN Creatinine Glucose POC Glucose 108 H 107 H 126 H Lactic Acid Calcium Ionized Calcium Phosphorus Magnesium Total Bilirubin AST ALT Alkaline Phosphatase Ammonia Total Creatine Kinase CK-MB (CK-2) CK-MB (CK-2) Rel Index Total Protein Albumin Urine WBC (Auto) Vancomycin Trough Salicylates Acetaminophen Plasma/Serum Alcohol Crossmatch 12/13/19 12/13/19 12/13/19 05:41 07:48 07:48 WBC 38.3 H RBC 2.37 L Hgb 6.3 L Hct 20.9 L MCH 27 L RDW 20.2 H Plt Count 546 H Lymph % (Auto) Sunflower % (Auto) Sunflower # Baso # Seg Neutrophils % Seg Neuts % (Manual) 93.0 H Lymphocytes % (Manual) 1.0 L Monocytes % (Manual) Seg Neutrophils # Seg Neutrophils # Man 35.6 H Lymphocytes # (Manual) 0.4 L Monocytes # (Manual) Eosinophils # (Manual) Basophils # (Manual) 0.4 H PT INR APTT ABG pH ABG pO2 ABG HCO3 ABG O2 Saturation ABG Base Excess ABG Hemoglobin Oxyhemoglobin Sodium 152 H Potassium 3.1 L D Chloride 111.9 H Carbon Dioxide 21 L BUN 53 H Creatinine 1.9 H Glucose 141 H POC Glucose 128 H Lactic Acid Calcium Ionized Calcium Phosphorus Magnesium Total Bilirubin AST ALT Alkaline Phosphatase 316 H Ammonia Total Creatine Kinase CK-MB (CK-2) CK-MB (CK-2) Rel Index Total Protein Albumin 2.4 L Urine WBC (Auto) Vancomycin Trough Salicylates Acetaminophen Plasma/Serum Alcohol Crossmatch 12/13/19 12/13/19 12/14/19 18:17 23:19 05:36 WBC RBC Hgb Hct MCH RDW Plt Count Lymph % (Auto) Sunflower % (Auto) Sunflower # Baso # Seg Neutrophils % Seg Neuts % (Manual) Lymphocytes % (Manual) Monocytes % (Manual) Seg Neutrophils # Seg Neutrophils # Man Lymphocytes # (Manual) Monocytes # (Manual) Eosinophils # (Manual) Basophils # (Manual) PT INR APTT ABG pH ABG pO2 ABG HCO3 ABG O2 Saturation ABG Base Excess ABG Hemoglobin Oxyhemoglobin Sodium Potassium Chloride Carbon Dioxide BUN Creatinine Glucose POC Glucose 141 H 158 H 182 H Lactic Acid Calcium Ionized Calcium Phosphorus Magnesium Total Bilirubin AST ALT Alkaline Phosphatase Ammonia Total Creatine Kinase CK-MB (CK-2) CK-MB (CK-2) Rel Index Total Protein Albumin Urine WBC (Auto) Vancomycin Trough Salicylates Acetaminophen Plasma/Serum Alcohol Crossmatch 12/14/19 12/14/19 12/14/19 08:48 08:48 10:31 WBC 33.3 H RBC 2.70 L Hgb 7.9 L 8.0 L Hct 25.3 L 24.0 L MCH RDW 19.2 H Plt Count 476 H Lymph % (Auto) Sunflower % (Auto) Sunflower # Baso # Seg Neutrophils % Seg Neuts % (Manual) Lymphocytes % (Manual) Monocytes % (Manual) Seg Neutrophils # Seg Neutrophils # Man Lymphocytes # (Manual) Monocytes # (Manual) Eosinophils # (Manual) Basophils # (Manual) PT INR APTT ABG pH ABG pO2 ABG HCO3 ABG O2 Saturation ABG Base Excess ABG Hemoglobin Oxyhemoglobin Sodium 153 H Potassium 2.5 L* Chloride 114.9 H Carbon Dioxide 20 L BUN 38 H Creatinine 1.4 H Glucose 177 H POC Glucose Lactic Acid Calcium Ionized Calcium Phosphorus Magnesium Total Bilirubin AST ALT Alkaline Phosphatase Ammonia Total Creatine Kinase CK-MB (CK-2) CK-MB (CK-2) Rel Index Total Protein Albumin Urine WBC (Auto) Vancomycin Trough Salicylates Acetaminophen Plasma/Serum Alcohol Crossmatch 12/14/19 12/14/19 12/14/19 12:57 16:15 17:50 WBC RBC Hgb Hct MCH RDW Plt Count Lymph % (Auto) Sunflower % (Auto) Sunflower # Baso # Seg Neutrophils % Seg Neuts % (Manual) Lymphocytes % (Manual) Monocytes % (Manual) Seg Neutrophils # Seg Neutrophils # Man Lymphocytes # (Manual) Monocytes # (Manual) Eosinophils # (Manual) Basophils # (Manual) PT INR APTT ABG pH ABG pO2 73.6 L ABG HCO3 ABG O2 Saturation ABG Base Excess ABG Hemoglobin 7.6 L Oxyhemoglobin 94.0 L Sodium Potassium Chloride Carbon Dioxide BUN Creatinine Glucose POC Glucose 174 H 150 H Lactic Acid Calcium Ionized Calcium Phosphorus Magnesium Total Bilirubin AST ALT Alkaline Phosphatase Ammonia Total Creatine Kinase CK-MB (CK-2) CK-MB (CK-2) Rel Index Total Protein Albumin Urine WBC (Auto) Vancomycin Trough Salicylates Acetaminophen Plasma/Serum Alcohol Crossmatch 12/15/19 12/15/19 12/15/19 00:28 05:27 07:23 WBC 30.0 H RBC 3.11 L Hgb 8.6 L Hct 27.7 L MCH RDW 20.0 H Plt Count 473 H Lymph % (Auto) Sunflower % (Auto) Sunflower # Baso # Seg Neutrophils % Seg Neuts % (Manual) Lymphocytes % (Manual) Monocytes % (Manual) Seg Neutrophils # Seg Neutrophils # Man Lymphocytes # (Manual) Monocytes # (Manual) Eosinophils # (Manual) Basophils # (Manual) PT INR APTT ABG pH ABG pO2 ABG HCO3 ABG O2 Saturation ABG Base Excess ABG Hemoglobin Oxyhemoglobin Sodium Potassium Chloride Carbon Dioxide BUN Creatinine Glucose POC Glucose 167 H 148 H Lactic Acid Calcium Ionized Calcium Phosphorus Magnesium Total Bilirubin AST ALT Alkaline Phosphatase Ammonia Total Creatine Kinase CK-MB (CK-2) CK-MB (CK-2) Rel Index Total Protein Albumin Urine WBC (Auto) Vancomycin Trough Salicylates Acetaminophen Plasma/Serum Alcohol Crossmatch 12/15/19 12/15/19 12/15/19 07:23 12:21 17:41 WBC RBC Hgb Hct MCH RDW Plt Count Lymph % (Auto) Sunflower % (Auto) Sunflower # Baso # Seg Neutrophils % Seg Neuts % (Manual) Lymphocytes % (Manual) Monocytes % (Manual) Seg Neutrophils # Seg Neutrophils # Man Lymphocytes # (Manual) Monocytes # (Manual) Eosinophils # (Manual) Basophils # (Manual) PT INR APTT ABG pH ABG pO2 ABG HCO3 ABG O2 Saturation ABG Base Excess ABG Hemoglobin Oxyhemoglobin Sodium 147 H Potassium 3.5 L D Chloride 111.2 H Carbon Dioxide 19 L BUN 29 H Creatinine Glucose 126 H POC Glucose 154 H 144 H Lactic Acid Calcium Ionized Calcium Phosphorus Magnesium Total Bilirubin AST ALT Alkaline Phosphatase Ammonia Total Creatine Kinase CK-MB (CK-2) CK-MB (CK-2) Rel Index Total Protein Albumin Urine WBC (Auto) Vancomycin Trough Salicylates Acetaminophen Plasma/Serum Alcohol Crossmatch 12/16/19 12/16/19 12/16/19 00:22 05:30 05:44 WBC 30.8 H RBC 2.58 L Hgb 7.1 L Hct 22.7 L MCH RDW 19.6 H Plt Count 451 H Lymph % (Auto) Sunflower % (Auto) Sunflower # Baso # Seg Neutrophils % Seg Neuts % (Manual) Lymphocytes % (Manual) Monocytes % (Manual) Seg Neutrophils # Seg Neutrophils # Man Lymphocytes # (Manual) Monocytes # (Manual) Eosinophils # (Manual) Basophils # (Manual) PT INR APTT ABG pH ABG pO2 ABG HCO3 ABG O2 Saturation ABG Base Excess ABG Hemoglobin Oxyhemoglobin Sodium Potassium Chloride Carbon Dioxide BUN Creatinine Glucose POC Glucose 139 H 126 H Lactic Acid Calcium Ionized Calcium Phosphorus Magnesium Total Bilirubin AST ALT Alkaline Phosphatase Ammonia Total Creatine Kinase CK-MB (CK-2) CK-MB (CK-2) Rel Index Total Protein Albumin Urine WBC (Auto) Vancomycin Trough Salicylates Acetaminophen Plasma/Serum Alcohol Crossmatch 12/16/19 12/16/19 12/16/19 05:44 11:48 17:37 WBC RBC Hgb Hct MCH RDW Plt Count Lymph % (Auto) Sunflower % (Auto) Sunflower # Baso # Seg Neutrophils % Seg Neuts % (Manual) Lymphocytes % (Manual) Monocytes % (Manual) Seg Neutrophils # Seg Neutrophils # Man Lymphocytes # (Manual) Monocytes # (Manual) Eosinophils # (Manual) Basophils # (Manual) PT INR APTT ABG pH ABG pO2 ABG HCO3 ABG O2 Saturation ABG Base Excess ABG Hemoglobin Oxyhemoglobin Sodium Potassium 3.4 L Chloride 109.2 H Carbon Dioxide 19 L BUN 27 H Creatinine Glucose 124 H POC Glucose 125 H 148 H Lactic Acid Calcium Ionized Calcium Phosphorus Magnesium Total Bilirubin AST ALT Alkaline Phosphatase Ammonia Total Creatine Kinase CK-MB (CK-2) CK-MB (CK-2) Rel Index Total Protein Albumin Urine WBC (Auto) Vancomycin Trough Salicylates Acetaminophen Plasma/Serum Alcohol Crossmatch 12/16/19 12/17/19 12/17/19 23:43 05:28 12:47 WBC RBC Hgb Hct MCH RDW Plt Count Lymph % (Auto) Sunflower % (Auto) Sunflower # Baso # Seg Neutrophils % Seg Neuts % (Manual) Lymphocytes % (Manual) Monocytes % (Manual) Seg Neutrophils # Seg Neutrophils # Man Lymphocytes # (Manual) Monocytes # (Manual) Eosinophils # (Manual) Basophils # (Manual) PT INR APTT ABG pH ABG pO2 ABG HCO3 ABG O2 Saturation ABG Base Excess ABG Hemoglobin Oxyhemoglobin Sodium Potassium Chloride Carbon Dioxide BUN Creatinine Glucose POC Glucose 142 H 140 H 125 H Lactic Acid Calcium Ionized Calcium Phosphorus Magnesium Total Bilirubin AST ALT Alkaline Phosphatase Ammonia Total Creatine Kinase CK-MB (CK-2) CK-MB (CK-2) Rel Index Total Protein Albumin Urine WBC (Auto) Vancomycin Trough Salicylates Acetaminophen Plasma/Serum Alcohol Crossmatch 12/17/19 12/17/19 12/17/19 17:05 18:00 Unknown WBC RBC Hgb Hct MCH RDW Plt Count Lymph % (Auto) Sunflower % (Auto) Sunflower # Baso # Seg Neutrophils % Seg Neuts % (Manual) Lymphocytes % (Manual) Monocytes % (Manual) Seg Neutrophils # Seg Neutrophils # Man Lymphocytes # (Manual) Monocytes # (Manual) Eosinophils # (Manual) Basophils # (Manual) PT INR APTT ABG pH ABG pO2 68.1 L ABG HCO3 ABG O2 Saturation 93.7 L ABG Base Excess ABG Hemoglobin 5.0 L Oxyhemoglobin 91.7 L Sodium Potassium Chloride Carbon Dioxide BUN Creatinine Glucose POC Glucose 140 H Lactic Acid Calcium Ionized Calcium Phosphorus Magnesium Total Bilirubin AST ALT Alkaline Phosphatase Ammonia Total Creatine Kinase CK-MB (CK-2) CK-MB (CK-2) Rel Index Total Protein Albumin Urine WBC (Auto) Vancomycin Trough Salicylates Acetaminophen Plasma/Serum Alcohol Crossmatch 12/18/19 12/18/19 12/18/19 00:16 04:53 04:53 WBC 28.6 H RBC 2.27 L Hgb 6.3 L Hct 19.5 L* MCH RDW 20.0 H Plt Count 497 H Lymph % (Auto) Sunflower % (Auto) Sunflower # Baso # Seg Neutrophils % Seg Neuts % (Manual) Lymphocytes % (Manual) Monocytes % (Manual) Seg Neutrophils # Seg Neutrophils # Man Lymphocytes # (Manual) Monocytes # (Manual) Eosinophils # (Manual) Basophils # (Manual) PT INR APTT ABG pH ABG pO2 ABG HCO3 ABG O2 Saturation ABG Base Excess ABG Hemoglobin Oxyhemoglobin Sodium Potassium Chloride 107.9 H Carbon Dioxide 20 L BUN 27 H Creatinine 0.6 L Glucose 116 H POC Glucose 123 H Lactic Acid Calcium Ionized Calcium Phosphorus Magnesium Total Bilirubin AST ALT Alkaline Phosphatase Ammonia Total Creatine Kinase CK-MB (CK-2) CK-MB (CK-2) Rel Index Total Protein Albumin Urine WBC (Auto) Vancomycin Trough Salicylates Acetaminophen Plasma/Serum Alcohol Crossmatch 12/18/19 12/18/19 12/18/19 06:38 11:22 12:08 WBC RBC Hgb Hct MCH RDW Plt Count Lymph % (Auto) Sunflower % (Auto) Sunflower # Baso # Seg Neutrophils % Seg Neuts % (Manual) Lymphocytes % (Manual) Monocytes % (Manual) Seg Neutrophils # Seg Neutrophils # Man Lymphocytes # (Manual) Monocytes # (Manual) Eosinophils # (Manual) Basophils # (Manual) PT INR APTT ABG pH ABG pO2 ABG HCO3 ABG O2 Saturation ABG Base Excess ABG Hemoglobin Oxyhemoglobin Sodium Potassium Chloride Carbon Dioxide BUN Creatinine Glucose POC Glucose 120 H 127 H Lactic Acid Calcium Ionized Calcium Phosphorus Magnesium Total Bilirubin AST ALT Alkaline Phosphatase Ammonia Total Creatine Kinase CK-MB (CK-2) CK-MB (CK-2) Rel Index Total Protein Albumin Urine WBC (Auto) Vancomycin Trough Salicylates Acetaminophen Plasma/Serum Alcohol Crossmatch See Detail 12/18/19 12/18/19 12/18/19 14:05 17:49 23:53 WBC RBC Hgb Hct MCH RDW Plt Count Lymph % (Auto) Sunflower % (Auto) Sunflower # Baso # Seg Neutrophils % Seg Neuts % (Manual) Lymphocytes % (Manual) Monocytes % (Manual) Seg Neutrophils # Seg Neutrophils # Man Lymphocytes # (Manual) Monocytes # (Manual) Eosinophils # (Manual) Basophils # (Manual) PT INR APTT ABG pH 7.267 L ABG pO2 69.8 L ABG HCO3 ABG O2 Saturation 88.4 L ABG Base Excess ABG Hemoglobin 7.1 L Oxyhemoglobin 86.4 L Sodium Potassium Chloride Carbon Dioxide BUN Creatinine Glucose POC Glucose 157 H 128 H Lactic Acid Calcium Ionized Calcium Phosphorus Magnesium Total Bilirubin AST ALT Alkaline Phosphatase Ammonia Total Creatine Kinase CK-MB (CK-2) CK-MB (CK-2) Rel Index Total Protein Albumin Urine WBC (Auto) Vancomycin Trough Salicylates Acetaminophen Plasma/Serum Alcohol Crossmatch 12/19/19 12/19/19 12/19/19 03:37 03:37 05:25 WBC 31.3 H RBC 2.60 L Hgb 7.6 L Hct 23.0 L MCH RDW 19.4 H Plt Count 530 H Lymph % (Auto) Sunflower % (Auto) Sunflower # Baso # Seg Neutrophils % Seg Neuts % (Manual) Lymphocytes % (Manual) Monocytes % (Manual) Seg Neutrophils # Seg Neutrophils # Man Lymphocytes # (Manual) Monocytes # (Manual) Eosinophils # (Manual) Basophils # (Manual) PT INR APTT ABG pH ABG pO2 ABG HCO3 ABG O2 Saturation ABG Base Excess ABG Hemoglobin Oxyhemoglobin Sodium Potassium Chloride Carbon Dioxide 18 L BUN 36 H Creatinine Glucose 111 H POC Glucose 123 H Lactic Acid Calcium Ionized Calcium Phosphorus Magnesium Total Bilirubin AST ALT Alkaline Phosphatase Ammonia Total Creatine Kinase CK-MB (CK-2) CK-MB (CK-2) Rel Index Total Protein Albumin Urine WBC (Auto) Vancomycin Trough Salicylates Acetaminophen Plasma/Serum Alcohol Crossmatch 12/19/19 12/19/19 12/20/19 12:59 18:33 00:00 WBC RBC Hgb Hct MCH RDW Plt Count Lymph % (Auto) Sunflower % (Auto) Sunflower # Baso # Seg Neutrophils % Seg Neuts % (Manual) Lymphocytes % (Manual) Monocytes % (Manual) Seg Neutrophils # Seg Neutrophils # Man Lymphocytes # (Manual) Monocytes # (Manual) Eosinophils # (Manual) Basophils # (Manual) PT INR APTT ABG pH ABG pO2 ABG HCO3 ABG O2 Saturation ABG Base Excess ABG Hemoglobin Oxyhemoglobin Sodium Potassium Chloride Carbon Dioxide BUN Creatinine Glucose POC Glucose 130 H 118 H 135 H Lactic Acid Calcium Ionized Calcium Phosphorus Magnesium Total Bilirubin AST ALT Alkaline Phosphatase Ammonia Total Creatine Kinase CK-MB (CK-2) CK-MB (CK-2) Rel Index Total Protein Albumin Urine WBC (Auto) Vancomycin Trough Salicylates Acetaminophen Plasma/Serum Alcohol Crossmatch 12/20/19 12/20/19 12/20/19 05:46 12:31 18:07 WBC RBC Hgb Hct MCH RDW Plt Count Lymph % (Auto) Sunflower % (Auto) Sunflower # Baso # Seg Neutrophils % Seg Neuts % (Manual) Lymphocytes % (Manual) Monocytes % (Manual) Seg Neutrophils # Seg Neutrophils # Man Lymphocytes # (Manual) Monocytes # (Manual) Eosinophils # (Manual) Basophils # (Manual) PT INR APTT ABG pH ABG pO2 ABG HCO3 ABG O2 Saturation ABG Base Excess ABG Hemoglobin Oxyhemoglobin Sodium Potassium Chloride Carbon Dioxide BUN Creatinine Glucose POC Glucose 131 H 128 H 134 H Lactic Acid Calcium Ionized Calcium Phosphorus Magnesium Total Bilirubin AST ALT Alkaline Phosphatase Ammonia Total Creatine Kinase CK-MB (CK-2) CK-MB (CK-2) Rel Index Total Protein Albumin Urine WBC (Auto) Vancomycin Trough Salicylates Acetaminophen Plasma/Serum Alcohol Crossmatch 12/21/19 12/21/19 12/21/19 03:28 03:28 07:21 WBC 29.4 H RBC 2.30 L Hgb 6.8 L Hct 20.2 L MCH RDW 20.2 H Plt Count 746 H Lymph % (Auto) Sunflower % (Auto) Sunflower # Baso # Seg Neutrophils % Seg Neuts % (Manual) 85.0 H Lymphocytes % (Manual) 8.0 L Monocytes % (Manual) Seg Neutrophils # Seg Neutrophils # Man 25.0 H Lymphocytes # (Manual) Monocytes # (Manual) 1.5 H Eosinophils # (Manual) 0.6 H Basophils # (Manual) PT INR APTT ABG pH ABG pO2 ABG HCO3 ABG O2 Saturation ABG Base Excess ABG Hemoglobin Oxyhemoglobin Sodium Potassium Chloride Carbon Dioxide 17 L BUN 57 H Creatinine 1.4 H D Glucose POC Glucose 124 H Lactic Acid Calcium Ionized Calcium Phosphorus Magnesium Total Bilirubin AST ALT Alkaline Phosphatase Ammonia Total Creatine Kinase CK-MB (CK-2) CK-MB (CK-2) Rel Index Total Protein Albumin Urine WBC (Auto) Vancomycin Trough Salicylates Acetaminophen Plasma/Serum Alcohol Crossmatch 12/21/19 12/21/19 12/21/19 08:56 12:06 14:53 WBC RBC Hgb 7.2 L Hct 22.9 L MCH RDW Plt Count Lymph % (Auto) Sunflower % (Auto) Sunflower # Baso # Seg Neutrophils % Seg Neuts % (Manual) Lymphocytes % (Manual) Monocytes % (Manual) Seg Neutrophils # Seg Neutrophils # Man Lymphocytes # (Manual) Monocytes # (Manual) Eosinophils # (Manual) Basophils # (Manual) PT INR APTT ABG pH ABG pO2 ABG HCO3 ABG O2 Saturation ABG Base Excess ABG Hemoglobin Oxyhemoglobin Sodium Potassium Chloride Carbon Dioxide BUN Creatinine Glucose POC Glucose 116 H Lactic Acid Calcium Ionized Calcium Phosphorus Magnesium Total Bilirubin AST ALT Alkaline Phosphatase Ammonia Total Creatine Kinase CK-MB (CK-2) CK-MB (CK-2) Rel Index Total Protein Albumin Urine WBC (Auto) Vancomycin Trough 33.8 H Salicylates Acetaminophen Plasma/Serum Alcohol Crossmatch 12/21/19 12/21/19 12/21/19 14:54 17:27 23:49 WBC RBC Hgb Hct MCH RDW Plt Count Lymph % (Auto) Sunflower % (Auto) Sunflower # Baso # Seg Neutrophils % Seg Neuts % (Manual) Lymphocytes % (Manual) Monocytes % (Manual) Seg Neutrophils # Seg Neutrophils # Man Lymphocytes # (Manual) Monocytes # (Manual) Eosinophils # (Manual) Basophils # (Manual) PT INR APTT ABG pH ABG pO2 ABG HCO3 ABG O2 Saturation ABG Base Excess ABG Hemoglobin Oxyhemoglobin Sodium Potassium Chloride Carbon Dioxide BUN Creatinine Glucose POC Glucose 145 H 127 H Lactic Acid Calcium Ionized Calcium Phosphorus Magnesium Total Bilirubin AST ALT Alkaline Phosphatase Ammonia Total Creatine Kinase CK-MB (CK-2) CK-MB (CK-2) Rel Index Total Protein Albumin Urine WBC (Auto) Vancomycin Trough Salicylates Acetaminophen Plasma/Serum Alcohol Crossmatch See Detail 12/22/19 12/22/19 12/22/19 04:43 05:56 08:40 WBC RBC Hgb Hct MCH RDW Plt Count Lymph % (Auto) Sunflower % (Auto) Sunflower # Baso # Seg Neutrophils % Seg Neuts % (Manual) Lymphocytes % (Manual) Monocytes % (Manual) Seg Neutrophils # Seg Neutrophils # Man Lymphocytes # (Manual) Monocytes # (Manual) Eosinophils # (Manual) Basophils # (Manual) PT INR APTT ABG pH ABG pO2 75.6 L ABG HCO3 ABG O2 Saturation ABG Base Excess -2.6 L ABG Hemoglobin 6.8 L Oxyhemoglobin 94.6 L Sodium Potassium Chloride Carbon Dioxide 17 L BUN 60 H Creatinine 1.4 H Glucose 126 H POC Glucose 153 H Lactic Acid Calcium Ionized Calcium Phosphorus Magnesium Total Bilirubin AST ALT Alkaline Phosphatase Ammonia Total Creatine Kinase CK-MB (CK-2) CK-MB (CK-2) Rel Index Total Protein Albumin Urine WBC (Auto) Vancomycin Trough Salicylates Acetaminophen Plasma/Serum Alcohol Crossmatch 12/22/19 12/22/19 12/23/19 12:07 17:49 04:30 WBC 22.4 H RBC 2.68 L Hgb 7.6 L Hct 22.9 L MCH RDW 19.9 H Plt Count 998 H Lymph % (Auto) Sunflower % (Auto) Sunflower # Baso # Seg Neutrophils % Seg Neuts % (Manual) 88.0 H Lymphocytes % (Manual) 2.0 L Monocytes % (Manual) 9.0 H Seg Neutrophils # Seg Neutrophils # Man 19.7 H Lymphocytes # (Manual) 0.4 L Monocytes # (Manual) 2.0 H Eosinophils # (Manual) Basophils # (Manual) PT INR APTT ABG pH ABG pO2 ABG HCO3 ABG O2 Saturation ABG Base Excess ABG Hemoglobin Oxyhemoglobin Sodium Potassium Chloride Carbon Dioxide BUN Creatinine Glucose POC Glucose 140 H 116 H Lactic Acid Calcium Ionized Calcium Phosphorus Magnesium Total Bilirubin AST ALT Alkaline Phosphatase Ammonia Total Creatine Kinase CK-MB (CK-2) CK-MB (CK-2) Rel Index Total Protein Albumin Urine WBC (Auto) Vancomycin Trough Salicylates Acetaminophen Plasma/Serum Alcohol Crossmatch 12/23/19 12/23/19 12/23/19 04:30 12:00 18:06 WBC RBC Hgb Hct MCH RDW Plt Count Lymph % (Auto) Sunflower % (Auto) Sunflower # Baso # Seg Neutrophils % Seg Neuts % (Manual) Lymphocytes % (Manual) Monocytes % (Manual) Seg Neutrophils # Seg Neutrophils # Man Lymphocytes # (Manual) Monocytes # (Manual) Eosinophils # (Manual) Basophils # (Manual) PT INR APTT ABG pH ABG pO2 ABG HCO3 ABG O2 Saturation ABG Base Excess ABG Hemoglobin Oxyhemoglobin Sodium Potassium 5.2 H Chloride Carbon Dioxide 21 L BUN 69 H Creatinine 1.5 H Glucose 117 H POC Glucose 128 H 138 H Lactic Acid Calcium Ionized Calcium Phosphorus Magnesium Total Bilirubin AST ALT Alkaline Phosphatase Ammonia Total Creatine Kinase CK-MB (CK-2) CK-MB (CK-2) Rel Index Total Protein Albumin Urine WBC (Auto) Vancomycin Trough Salicylates Acetaminophen Plasma/Serum Alcohol Crossmatch 12/23/19 12/24/19 12/24/19 23:46 04:31 05:08 WBC RBC Hgb Hct MCH RDW Plt Count Lymph % (Auto) Sunflower % (Auto) Sunflower # Baso # Seg Neutrophils % Seg Neuts % (Manual) Lymphocytes % (Manual) Monocytes % (Manual) Seg Neutrophils # Seg Neutrophils # Man Lymphocytes # (Manual) Monocytes # (Manual) Eosinophils # (Manual) Basophils # (Manual) PT INR APTT ABG pH ABG pO2 ABG HCO3 ABG O2 Saturation ABG Base Excess ABG Hemoglobin Oxyhemoglobin Sodium Potassium 5.3 H Chloride 107.6 H Carbon Dioxide 20 L BUN 72 H Creatinine 1.6 H Glucose 120 H POC Glucose 120 H 140 H Lactic Acid Calcium Ionized Calcium Phosphorus Magnesium Total Bilirubin AST ALT Alkaline Phosphatase Ammonia Total Creatine Kinase CK-MB (CK-2) CK-MB (CK-2) Rel Index Total Protein Albumin Urine WBC (Auto) Vancomycin Trough Salicylates Acetaminophen Plasma/Serum Alcohol Crossmatch 12/24/19 12/24/19 12/25/19 11:58 17:49 03:47 WBC 36.2 H RBC 2.92 L Hgb 8.4 L Hct 26.1 L MCH RDW 20.2 H Plt Count 942 H Lymph % (Auto) Sunflower % (Auto) Sunflower # Baso # Seg Neutrophils % Seg Neuts % (Manual) 97.5 H Lymphocytes % (Manual) 1.0 L Monocytes % (Manual) Seg Neutrophils # Seg Neutrophils # Man 35.3 H Lymphocytes # (Manual) 0.4 L Monocytes # (Manual) Eosinophils # (Manual) Basophils # (Manual) PT INR APTT ABG pH ABG pO2 ABG HCO3 ABG O2 Saturation ABG Base Excess ABG Hemoglobin Oxyhemoglobin Sodium Potassium Chloride Carbon Dioxide BUN Creatinine Glucose POC Glucose 146 H 131 H Lactic Acid Calcium Ionized Calcium Phosphorus Magnesium Total Bilirubin AST ALT Alkaline Phosphatase Ammonia Total Creatine Kinase CK-MB (CK-2) CK-MB (CK-2) Rel Index Total Protein Albumin Urine WBC (Auto) Vancomycin Trough Salicylates Acetaminophen Plasma/Serum Alcohol Crossmatch 12/25/19 12/25/19 12/25/19 03:47 05:30 12:23 WBC RBC Hgb Hct MCH RDW Plt Count Lymph % (Auto) Sunflower % (Auto) Sunflower # Baso # Seg Neutrophils % Seg Neuts % (Manual) Lymphocytes % (Manual) Monocytes % (Manual) Seg Neutrophils # Seg Neutrophils # Man Lymphocytes # (Manual) Monocytes # (Manual) Eosinophils # (Manual) Basophils # (Manual) PT INR APTT ABG pH ABG pO2 ABG HCO3 ABG O2 Saturation ABG Base Excess ABG Hemoglobin Oxyhemoglobin Sodium Potassium Chloride Carbon Dioxide 15 L BUN 70 H Creatinine 1.7 H Glucose 153 H POC Glucose 169 H 135 H Lactic Acid Calcium Ionized Calcium Phosphorus Magnesium Total Bilirubin AST ALT Alkaline Phosphatase Ammonia Total Creatine Kinase CK-MB (CK-2) CK-MB (CK-2) Rel Index Total Protein Albumin Urine WBC (Auto) Vancomycin Trough Salicylates Acetaminophen Plasma/Serum Alcohol Crossmatch 0412/25/19 12/26/19 17:37 23:29 09:47 WBC 22.1 H RBC 2.83 L Hgb 7.9 L Hct 25.5 L MCH RDW 20.0 H Plt Count 894 H Lymph % (Auto) Sunflower % (Auto) Sunflower # Baso # Seg Neutrophils % Seg Neuts % (Manual) Lymphocytes % (Manual) Monocytes % (Manual) Seg Neutrophils # Seg Neutrophils # Man Lymphocytes # (Manual) Monocytes # (Manual) Eosinophils # (Manual) Basophils # (Manual) PT INR APTT ABG pH ABG pO2 ABG HCO3 ABG O2 Saturation ABG Base Excess ABG Hemoglobin Oxyhemoglobin Sodium Potassium Chloride Carbon Dioxide BUN Creatinine Glucose POC Glucose 120 H 140 H Lactic Acid Calcium Ionized Calcium Phosphorus Magnesium Total Bilirubin AST ALT Alkaline Phosphatase Ammonia Total Creatine Kinase CK-MB (CK-2) CK-MB (CK-2) Rel Index Total Protein Albumin Urine WBC (Auto) Vancomycin Trough Salicylates Acetaminophen Plasma/Serum Alcohol Crossmatch 12/26/19 12/26/19 12/26/19 09:47 11:46 17:52 WBC RBC Hgb Hct MCH RDW Plt Count Lymph % (Auto) Sunflower % (Auto) Sunflower # Baso # Seg Neutrophils % Seg Neuts % (Manual) Lymphocytes % (Manual) Monocytes % (Manual) Seg Neutrophils # Seg Neutrophils # Man Lymphocytes # (Manual) Monocytes # (Manual) Eosinophils # (Manual) Basophils # (Manual) PT INR APTT ABG pH ABG pO2 ABG HCO3 ABG O2 Saturation ABG Base Excess ABG Hemoglobin Oxyhemoglobin Sodium Potassium Chloride Carbon Dioxide 18 L BUN 65 H Creatinine 1.4 H Glucose 132 H POC Glucose 110 H 145 H Lactic Acid Calcium Ionized Calcium Phosphorus Magnesium Total Bilirubin AST ALT Alkaline Phosphatase Ammonia Total Creatine Kinase CK-MB (CK-2) CK-MB (CK-2) Rel Index Total Protein Albumin Urine WBC (Auto) Vancomycin Trough Salicylates Acetaminophen Plasma/Serum Alcohol Crossmatch 12/27/19 12/27/19 12/27/19 00:01 03:42 03:42 WBC 18.0 H RBC 2.86 L Hgb 8.0 L Hct 25.2 L MCH RDW 19.2 H Plt Count 873 H Lymph % (Auto) 8.4 L Sunflower % (Auto) 7.5 H Sunflower # 1.4 H Baso # 0.2 H Seg Neutrophils % 82.2 H Seg Neuts % (Manual) Lymphocytes % (Manual) Monocytes % (Manual) Seg Neutrophils # 14.8 H Seg Neutrophils # Man Lymphocytes # (Manual) Monocytes # (Manual) Eosinophils # (Manual) Basophils # (Manual) PT INR APTT ABG pH ABG pO2 ABG HCO3 ABG O2 Saturation ABG Base Excess ABG Hemoglobin Oxyhemoglobin Sodium Potassium Chloride Carbon Dioxide BUN 73 H Creatinine 1.4 H Glucose 119 H POC Glucose 124 H Lactic Acid Calcium Ionized Calcium Phosphorus Magnesium Total Bilirubin AST ALT Alkaline Phosphatase Ammonia Total Creatine Kinase CK-MB (CK-2) CK-MB (CK-2) Rel Index Total Protein Albumin Urine WBC (Auto) Vancomycin Trough Salicylates Acetaminophen Plasma/Serum Alcohol Crossmatch 12/27/19 12/27/19 12/27/19 05:45 11:45 17:29 WBC RBC Hgb Hct MCH RDW Plt Count Lymph % (Auto) Sunflower % (Auto) Sunflower # Baso # Seg Neutrophils % Seg Neuts % (Manual) Lymphocytes % (Manual) Monocytes % (Manual) Seg Neutrophils # Seg Neutrophils # Man Lymphocytes # (Manual) Monocytes # (Manual) Eosinophils # (Manual) Basophils # (Manual) PT INR APTT ABG pH ABG pO2 ABG HCO3 ABG O2 Saturation ABG Base Excess ABG Hemoglobin Oxyhemoglobin Sodium Potassium Chloride Carbon Dioxide BUN Creatinine Glucose POC Glucose 131 H 123 H 134 H Lactic Acid Calcium Ionized Calcium Phosphorus Magnesium Total Bilirubin AST ALT Alkaline Phosphatase Ammonia Total Creatine Kinase CK-MB (CK-2) CK-MB (CK-2) Rel Index Total Protein Albumin Urine WBC (Auto) Vancomycin Trough Salicylates Acetaminophen Plasma/Serum Alcohol Crossmatch 12/28/19 12/28/19 12/28/19 00:12 05:14 11:53 WBC RBC Hgb Hct MCH RDW Plt Count Lymph % (Auto) Sunflower % (Auto) Sunflower # Baso # Seg Neutrophils % Seg Neuts % (Manual) Lymphocytes % (Manual) Monocytes % (Manual) Seg Neutrophils # Seg Neutrophils # Man Lymphocytes # (Manual) Monocytes # (Manual) Eosinophils # (Manual) Basophils # (Manual) PT INR APTT ABG pH ABG pO2 ABG HCO3 ABG O2 Saturation ABG Base Excess ABG Hemoglobin Oxyhemoglobin Sodium Potassium Chloride Carbon Dioxide BUN Creatinine Glucose POC Glucose 138 H 130 H 146 H Lactic Acid Calcium Ionized Calcium Phosphorus Magnesium Total Bilirubin AST ALT Alkaline Phosphatase Ammonia Total Creatine Kinase CK-MB (CK-2) CK-MB (CK-2) Rel Index Total Protein Albumin Urine WBC (Auto) Vancomycin Trough Salicylates Acetaminophen Plasma/Serum Alcohol Crossmatch 12/28/19 12/29/19 12/29/19 17:39 00:01 18:11 WBC RBC Hgb Hct MCH RDW Plt Count Lymph % (Auto) Sunflower % (Auto) Sunflower # Baso # Seg Neutrophils % Seg Neuts % (Manual) Lymphocytes % (Manual) Monocytes % (Manual) Seg Neutrophils # Seg Neutrophils # Man Lymphocytes # (Manual) Monocytes # (Manual) Eosinophils # (Manual) Basophils # (Manual) PT INR APTT ABG pH ABG pO2 ABG HCO3 ABG O2 Saturation ABG Base Excess ABG Hemoglobin Oxyhemoglobin Sodium Potassium Chloride Carbon Dioxide BUN Creatinine Glucose POC Glucose 117 H 139 H 130 H Lactic Acid Calcium Ionized Calcium Phosphorus Magnesium Total Bilirubin AST ALT Alkaline Phosphatase Ammonia Total Creatine Kinase CK-MB (CK-2) CK-MB (CK-2) Rel Index Total Protein Albumin Urine WBC (Auto) Vancomycin Trough Salicylates Acetaminophen Plasma/Serum Alcohol Crossmatch 12/29/19 12/30/19 12/30/19 23:09 00:02 01:06 WBC 16.7 H RBC 2.91 L Hgb 8.2 L Hct 25.4 L MCH RDW 18.7 H Plt Count 708 H Lymph % (Auto) 9.4 L Sunflower % (Auto) Sunflower # 0.9 H Baso # Seg Neutrophils % 83.5 H Seg Neuts % (Manual) Lymphocytes % (Manual) Monocytes % (Manual) Seg Neutrophils # 14.0 H Seg Neutrophils # Man Lymphocytes # (Manual) Monocytes # (Manual) Eosinophils # (Manual) Basophils # (Manual) PT INR APTT ABG pH ABG pO2 ABG HCO3 ABG O2 Saturation ABG Base Excess ABG Hemoglobin Oxyhemoglobin Sodium Potassium Chloride Carbon Dioxide BUN Creatinine Glucose POC Glucose 120 H 114 H Lactic Acid Calcium Ionized Calcium Phosphorus Magnesium Total Bilirubin AST ALT Alkaline Phosphatase Ammonia Total Creatine Kinase CK-MB (CK-2) CK-MB (CK-2) Rel Index Total Protein Albumin Urine WBC (Auto) Vancomycin Trough Salicylates Acetaminophen Plasma/Serum Alcohol Crossmatch 12/30/19 12/30/19 12/30/19 01:06 04:23 05:18 WBC RBC Hgb Hct MCH RDW Plt Count Lymph % (Auto) Sunflower % (Auto) Sunflower # Baso # Seg Neutrophils % Seg Neuts % (Manual) Lymphocytes % (Manual) Monocytes % (Manual) Seg Neutrophils # Seg Neutrophils # Man Lymphocytes # (Manual) Monocytes # (Manual) Eosinophils # (Manual) Basophils # (Manual) PT INR APTT ABG pH ABG pO2 ABG HCO3 ABG O2 Saturation ABG Base Excess ABG Hemoglobin 8.3 L Oxyhemoglobin Sodium Potassium Chloride Carbon Dioxide BUN 70 H Creatinine Glucose 122 H POC Glucose 130 H Lactic Acid Calcium Ionized Calcium Phosphorus Magnesium Total Bilirubin AST ALT Alkaline Phosphatase Ammonia Total Creatine Kinase CK-MB (CK-2) CK-MB (CK-2) Rel Index Total Protein Albumin Urine WBC (Auto) Vancomycin Trough Salicylates Acetaminophen Plasma/Serum Alcohol Crossmatch 12/30/19 12/30/19 12/30/19 05:40 12:17 17:43 WBC RBC Hgb Hct MCH RDW Plt Count Lymph % (Auto) Sunflower % (Auto) Sunflower # Baso # Seg Neutrophils % Seg Neuts % (Manual) Lymphocytes % (Manual) Monocytes % (Manual) Seg Neutrophils # Seg Neutrophils # Man Lymphocytes # (Manual) Monocytes # (Manual) Eosinophils # (Manual) Basophils # (Manual) PT INR APTT ABG pH ABG pO2 ABG HCO3 ABG O2 Saturation ABG Base Excess ABG Hemoglobin Oxyhemoglobin Sodium Potassium Chloride Carbon Dioxide BUN Creatinine Glucose POC Glucose 135 H 132 H 118 H Lactic Acid Calcium Ionized Calcium Phosphorus Magnesium Total Bilirubin AST ALT Alkaline Phosphatase Ammonia Total Creatine Kinase CK-MB (CK-2) CK-MB (CK-2) Rel Index Total Protein Albumin Urine WBC (Auto) Vancomycin Trough Salicylates Acetaminophen Plasma/Serum Alcohol Crossmatch 12/30/19 12/31/19 12/31/19 23:29 05:19 17:50 WBC RBC Hgb Hct MCH RDW Plt Count Lymph % (Auto) Sunflower % (Auto) Sunflower # Baso # Seg Neutrophils % Seg Neuts % (Manual) Lymphocytes % (Manual) Monocytes % (Manual) Seg Neutrophils # Seg Neutrophils # Man Lymphocytes # (Manual) Monocytes # (Manual) Eosinophils # (Manual) Basophils # (Manual) PT INR APTT ABG pH ABG pO2 ABG HCO3 ABG O2 Saturation ABG Base Excess ABG Hemoglobin Oxyhemoglobin Sodium Potassium Chloride Carbon Dioxide BUN Creatinine Glucose POC Glucose 114 H 109 H 116 H Lactic Acid Calcium Ionized Calcium Phosphorus Magnesium Total Bilirubin AST ALT Alkaline Phosphatase Ammonia Total Creatine Kinase CK-MB (CK-2) CK-MB (CK-2) Rel Index Total Protein Albumin Urine WBC (Auto) Vancomycin Trough Salicylates Acetaminophen Plasma/Serum Alcohol Crossmatch 01/01/20 01/01/20 01/01/20 00:10 05:19 12:02 WBC RBC Hgb Hct MCH RDW Plt Count Lymph % (Auto) Sunflower % (Auto) Sunflower # Baso # Seg Neutrophils % Seg Neuts % (Manual) Lymphocytes % (Manual) Monocytes % (Manual) Seg Neutrophils # Seg Neutrophils # Man Lymphocytes # (Manual) Monocytes # (Manual) Eosinophils # (Manual) Basophils # (Manual) PT INR APTT ABG pH ABG pO2 ABG HCO3 ABG O2 Saturation ABG Base Excess ABG Hemoglobin Oxyhemoglobin Sodium Potassium Chloride Carbon Dioxide BUN Creatinine Glucose POC Glucose 131 H 122 H 136 H Lactic Acid Calcium Ionized Calcium Phosphorus Magnesium Total Bilirubin AST ALT Alkaline Phosphatase Ammonia Total Creatine Kinase CK-MB (CK-2) CK-MB (CK-2) Rel Index Total Protein Albumin Urine WBC (Auto) Vancomycin Trough Salicylates Acetaminophen Plasma/Serum Alcohol Crossmatch 01/02/20 01/02/20 01/02/20 00:24 05:36 11:41 WBC RBC Hgb Hct MCH RDW Plt Count Lymph % (Auto) Sunflower % (Auto) Sunflower # Baso # Seg Neutrophils % Seg Neuts % (Manual) Lymphocytes % (Manual) Monocytes % (Manual) Seg Neutrophils # Seg Neutrophils # Man Lymphocytes # (Manual) Monocytes # (Manual) Eosinophils # (Manual) Basophils # (Manual) PT INR APTT ABG pH ABG pO2 ABG HCO3 ABG O2 Saturation ABG Base Excess ABG Hemoglobin Oxyhemoglobin Sodium Potassium Chloride Carbon Dioxide BUN Creatinine Glucose POC Glucose 119 H 109 H 125 H Lactic Acid Calcium Ionized Calcium Phosphorus Magnesium Total Bilirubin AST ALT Alkaline Phosphatase Ammonia Total Creatine Kinase CK-MB (CK-2) CK-MB (CK-2) Rel Index Total Protein Albumin Urine WBC (Auto) Vancomycin Trough Salicylates Acetaminophen Plasma/Serum Alcohol Crossmatch 01/02/20 01/03/20 01/03/20 17:49 05:29 12:13 WBC RBC Hgb Hct MCH RDW Plt Count Lymph % (Auto) Sunflower % (Auto) Sunflower # Baso # Seg Neutrophils % Seg Neuts % (Manual) Lymphocytes % (Manual) Monocytes % (Manual) Seg Neutrophils # Seg Neutrophils # Man Lymphocytes # (Manual) Monocytes # (Manual) Eosinophils # (Manual) Basophils # (Manual) PT INR APTT ABG pH ABG pO2 ABG HCO3 ABG O2 Saturation ABG Base Excess ABG Hemoglobin Oxyhemoglobin Sodium Potassium Chloride Carbon Dioxide BUN Creatinine Glucose POC Glucose 130 H 132 H 113 H Lactic Acid Calcium Ionized Calcium Phosphorus Magnesium Total Bilirubin AST ALT Alkaline Phosphatase Ammonia Total Creatine Kinase CK-MB (CK-2) CK-MB (CK-2) Rel Index Total Protein Albumin Urine WBC (Auto) Vancomycin Trough Salicylates Acetaminophen Plasma/Serum Alcohol Crossmatch 01/03/20 01/04/20 01/04/20 17:32 00:19 05:26 WBC RBC Hgb Hct MCH RDW Plt Count Lymph % (Auto) Sunflower % (Auto) Sunflower # Baso # Seg Neutrophils % Seg Neuts % (Manual) Lymphocytes % (Manual) Monocytes % (Manual) Seg Neutrophils # Seg Neutrophils # Man Lymphocytes # (Manual) Monocytes # (Manual) Eosinophils # (Manual) Basophils # (Manual) PT INR APTT ABG pH ABG pO2 ABG HCO3 ABG O2 Saturation ABG Base Excess ABG Hemoglobin Oxyhemoglobin Sodium Potassium Chloride Carbon Dioxide BUN Creatinine Glucose POC Glucose 127 H 141 H 129 H Lactic Acid Calcium Ionized Calcium Phosphorus Magnesium Total Bilirubin AST ALT Alkaline Phosphatase Ammonia Total Creatine Kinase CK-MB (CK-2) CK-MB (CK-2) Rel Index Total Protein Albumin Urine WBC (Auto) Vancomycin Trough Salicylates Acetaminophen Plasma/Serum Alcohol Crossmatch 01/04/20 01/04/20 01/05/20 11:39 17:29 05:22 WBC RBC Hgb Hct MCH RDW Plt Count Lymph % (Auto) Sunflower % (Auto) Sunflower # Baso # Seg Neutrophils % Seg Neuts % (Manual) Lymphocytes % (Manual) Monocytes % (Manual) Seg Neutrophils # Seg Neutrophils # Man Lymphocytes # (Manual) Monocytes # (Manual) Eosinophils # (Manual) Basophils # (Manual) PT INR APTT ABG pH ABG pO2 ABG HCO3 ABG O2 Saturation ABG Base Excess ABG Hemoglobin Oxyhemoglobin Sodium Potassium Chloride Carbon Dioxide BUN Creatinine Glucose POC Glucose 167 H 132 H 121 H Lactic Acid Calcium Ionized Calcium Phosphorus Magnesium Total Bilirubin AST ALT Alkaline Phosphatase Ammonia Total Creatine Kinase CK-MB (CK-2) CK-MB (CK-2) Rel Index Total Protein Albumin Urine WBC (Auto) Vancomycin Trough Salicylates Acetaminophen Plasma/Serum Alcohol Crossmatch 01/05/20 01/05/20 01/05/20 12:25 17:40 18:06 WBC RBC Hgb Hct MCH RDW Plt Count Lymph % (Auto) Sunflower % (Auto) Sunflower # Baso # Seg Neutrophils % Seg Neuts % (Manual) Lymphocytes % (Manual) Monocytes % (Manual) Seg Neutrophils # Seg Neutrophils # Man Lymphocytes # (Manual) Monocytes # (Manual) Eosinophils # (Manual) Basophils # (Manual) PT INR APTT ABG pH 7.472 H ABG pO2 99.2 H ABG HCO3 ABG O2 Saturation ABG Base Excess ABG Hemoglobin 7.8 L Oxyhemoglobin Sodium Potassium Chloride Carbon Dioxide BUN Creatinine Glucose POC Glucose 106 H 110 H Lactic Acid Calcium Ionized Calcium Phosphorus Magnesium Total Bilirubin AST ALT Alkaline Phosphatase Ammonia Total Creatine Kinase CK-MB (CK-2) CK-MB (CK-2) Rel Index Total Protein Albumin Urine WBC (Auto) Vancomycin Trough Salicylates Acetaminophen Plasma/Serum Alcohol Crossmatch 01/06/20 01/06/20 01/06/20 00:11 05:16 11:30 WBC RBC Hgb Hct MCH RDW Plt Count Lymph % (Auto) Sunflower % (Auto) Sunflower # Baso # Seg Neutrophils % Seg Neuts % (Manual) Lymphocytes % (Manual) Monocytes % (Manual) Seg Neutrophils # Seg Neutrophils # Man Lymphocytes # (Manual) Monocytes # (Manual) Eosinophils # (Manual) Basophils # (Manual) PT INR APTT ABG pH ABG pO2 ABG HCO3 ABG O2 Saturation ABG Base Excess ABG Hemoglobin Oxyhemoglobin Sodium Potassium Chloride Carbon Dioxide BUN Creatinine Glucose POC Glucose 108 H 124 H 125 H Lactic Acid Calcium Ionized Calcium Phosphorus Magnesium Total Bilirubin AST ALT Alkaline Phosphatase Ammonia Total Creatine Kinase CK-MB (CK-2) CK-MB (CK-2) Rel Index Total Protein Albumin Urine WBC (Auto) Vancomycin Trough Salicylates Acetaminophen Plasma/Serum Alcohol Crossmatch 01/06/20 01/06/20 01/07/20 17:53 23:51 04:12 WBC 16.5 H RBC 3.29 L Hgb 9.3 L Hct 28.1 L MCH RDW 18.2 H Plt Count 526 H Lymph % (Auto) 8.4 L Sunflower % (Auto) Sunflower # 1.0 H Baso # Seg Neutrophils % 84.4 H Seg Neuts % (Manual) Lymphocytes % (Manual) Monocytes % (Manual) Seg Neutrophils # 13.9 H Seg Neutrophils # Man Lymphocytes # (Manual) Monocytes # (Manual) Eosinophils # (Manual) Basophils # (Manual) PT INR APTT ABG pH ABG pO2 ABG HCO3 ABG O2 Saturation ABG Base Excess ABG Hemoglobin Oxyhemoglobin Sodium Potassium Chloride Carbon Dioxide BUN Creatinine Glucose POC Glucose 166 H 128 H Lactic Acid Calcium Ionized Calcium Phosphorus Magnesium Total Bilirubin AST ALT Alkaline Phosphatase Ammonia Total Creatine Kinase CK-MB (CK-2) CK-MB (CK-2) Rel Index Total Protein Albumin Urine WBC (Auto) Vancomycin Trough Salicylates Acetaminophen Plasma/Serum Alcohol Crossmatch 01/07/20 01/07/20 01/07/20 04:12 04:45 11:51 WBC RBC Hgb Hct MCH RDW Plt Count Lymph % (Auto) Sunflower % (Auto) Sunflower # Baso # Seg Neutrophils % Seg Neuts % (Manual) Lymphocytes % (Manual) Monocytes % (Manual) Seg Neutrophils # Seg Neutrophils # Man Lymphocytes # (Manual) Monocytes # (Manual) Eosinophils # (Manual) Basophils # (Manual) PT INR APTT ABG pH ABG pO2 ABG HCO3 ABG O2 Saturation ABG Base Excess ABG Hemoglobin Oxyhemoglobin Sodium 136 L Potassium Chloride Carbon Dioxide 21 L BUN 44 H Creatinine 0.6 L Glucose 124 H POC Glucose 134 H 138 H Lactic Acid Calcium Ionized Calcium Phosphorus Magnesium Total Bilirubin AST ALT Alkaline Phosphatase Ammonia Total Creatine Kinase CK-MB (CK-2) CK-MB (CK-2) Rel Index Total Protein Albumin Urine WBC (Auto) Vancomycin Trough Salicylates Acetaminophen Plasma/Serum Alcohol Crossmatch 01/07/20 01/08/20 01/08/20 17:36 00:33 05:29 WBC RBC Hgb Hct MCH RDW Plt Count Lymph % (Auto) Sunflower % (Auto) Sunflower # Baso # Seg Neutrophils % Seg Neuts % (Manual) Lymphocytes % (Manual) Monocytes % (Manual) Seg Neutrophils # Seg Neutrophils # Man Lymphocytes # (Manual) Monocytes # (Manual) Eosinophils # (Manual) Basophils # (Manual) PT INR APTT ABG pH ABG pO2 ABG HCO3 ABG O2 Saturation ABG Base Excess ABG Hemoglobin Oxyhemoglobin Sodium Potassium Chloride Carbon Dioxide BUN Creatinine Glucose POC Glucose 128 H 119 H 124 H Lactic Acid Calcium Ionized Calcium Phosphorus Magnesium Total Bilirubin AST ALT Alkaline Phosphatase Ammonia Total Creatine Kinase CK-MB (CK-2) CK-MB (CK-2) Rel Index Total Protein Albumin Urine WBC (Auto) Vancomycin Trough Salicylates Acetaminophen Plasma/Serum Alcohol Crossmatch 01/08/20 01/08/20 01/08/20 12:51 20:25 23:22 WBC RBC Hgb Hct MCH RDW Plt Count Lymph % (Auto) Sunflower % (Auto) Sunflower # Baso # Seg Neutrophils % Seg Neuts % (Manual) Lymphocytes % (Manual) Monocytes % (Manual) Seg Neutrophils # Seg Neutrophils # Man Lymphocytes # (Manual) Monocytes # (Manual) Eosinophils # (Manual) Basophils # (Manual) PT INR APTT ABG pH ABG pO2 132.2 H ABG HCO3 ABG O2 Saturation ABG Base Excess ABG Hemoglobin Oxyhemoglobin Sodium Potassium Chloride Carbon Dioxide BUN Creatinine Glucose POC Glucose 128 H 127 H Lactic Acid Calcium Ionized Calcium Phosphorus Magnesium Total Bilirubin AST ALT Alkaline Phosphatase Ammonia Total Creatine Kinase CK-MB (CK-2) CK-MB (CK-2) Rel Index Total Protein Albumin Urine WBC (Auto) Vancomycin Trough Salicylates Acetaminophen Plasma/Serum Alcohol Crossmatch 01/09/20 01/09/20 01/09/20 05:48 08:51 11:29 WBC RBC Hgb Hct MCH RDW Plt Count Lymph % (Auto) Sunflower % (Auto) Sunflower # Baso # Seg Neutrophils % Seg Neuts % (Manual) Lymphocytes % (Manual) Monocytes % (Manual) Seg Neutrophils # Seg Neutrophils # Man Lymphocytes # (Manual) Monocytes # (Manual) Eosinophils # (Manual) Basophils # (Manual) PT INR APTT ABG pH ABG pO2 94.3 H ABG HCO3 ABG O2 Saturation ABG Base Excess ABG Hemoglobin 9.5 L Oxyhemoglobin Sodium Potassium Chloride Carbon Dioxide BUN Creatinine Glucose POC Glucose 120 H 112 H Lactic Acid Calcium Ionized Calcium Phosphorus Magnesium Total Bilirubin AST ALT Alkaline Phosphatase Ammonia Total Creatine Kinase CK-MB (CK-2) CK-MB (CK-2) Rel Index Total Protein Albumin Urine WBC (Auto) Vancomycin Trough Salicylates Acetaminophen Plasma/Serum Alcohol Crossmatch 01/09/20 01/10/20 01/10/20 17:57 05:17 12:28 WBC RBC Hgb Hct MCH RDW Plt Count Lymph % (Auto) Sunflower % (Auto) Sunflower # Baso # Seg Neutrophils % Seg Neuts % (Manual) Lymphocytes % (Manual) Monocytes % (Manual) Seg Neutrophils # Seg Neutrophils # Man Lymphocytes # (Manual) Monocytes # (Manual) Eosinophils # (Manual) Basophils # (Manual) PT INR APTT ABG pH ABG pO2 ABG HCO3 ABG O2 Saturation ABG Base Excess ABG Hemoglobin Oxyhemoglobin Sodium Potassium Chloride Carbon Dioxide BUN Creatinine Glucose POC Glucose 122 H 115 H 116 H Lactic Acid Calcium Ionized Calcium Phosphorus Magnesium Total Bilirubin AST ALT Alkaline Phosphatase Ammonia Total Creatine Kinase CK-MB (CK-2) CK-MB (CK-2) Rel Index Total Protein Albumin Urine WBC (Auto) Vancomycin Trough Salicylates Acetaminophen Plasma/Serum Alcohol Crossmatch 01/10/20 01/10/20 01/11/20 18:25 23:47 06:05 WBC RBC Hgb Hct MCH RDW Plt Count Lymph % (Auto) Sunflower % (Auto) Sunflower # Baso # Seg Neutrophils % Seg Neuts % (Manual) Lymphocytes % (Manual) Monocytes % (Manual) Seg Neutrophils # Seg Neutrophils # Man Lymphocytes # (Manual) Monocytes # (Manual) Eosinophils # (Manual) Basophils # (Manual) PT INR APTT ABG pH ABG pO2 ABG HCO3 ABG O2 Saturation ABG Base Excess ABG Hemoglobin Oxyhemoglobin Sodium Potassium Chloride Carbon Dioxide BUN Creatinine Glucose POC Glucose 123 H 115 H 151 H Lactic Acid Calcium Ionized Calcium Phosphorus Magnesium Total Bilirubin AST ALT Alkaline Phosphatase Ammonia Total Creatine Kinase CK-MB (CK-2) CK-MB (CK-2) Rel Index Total Protein Albumin Urine WBC (Auto) Vancomycin Trough Salicylates Acetaminophen Plasma/Serum Alcohol Crossmatch 01/11/20 01/11/20 01/11/20 07:00 07:00 12:27 WBC 11.8 H RBC 3.40 L Hgb 9.4 L Hct 29.3 L MCH RDW 18.1 H Plt Count 549 H Lymph % (Auto) Sunflower % (Auto) 9.1 H Sunflower # 1.1 H Baso # Seg Neutrophils % 73.3 H Seg Neuts % (Manual) Lymphocytes % (Manual) Monocytes % (Manual) Seg Neutrophils # 8.7 H Seg Neutrophils # Man Lymphocytes # (Manual) Monocytes # (Manual) Eosinophils # (Manual) Basophils # (Manual) PT INR APTT ABG pH ABG pO2 ABG HCO3 ABG O2 Saturation ABG Base Excess ABG Hemoglobin Oxyhemoglobin Sodium 134 L Potassium Chloride 97.7 L Carbon Dioxide 21 L BUN 38 H Creatinine 0.5 L Glucose 168 H POC Glucose 117 H Lactic Acid Calcium 10.5 H Ionized Calcium Phosphorus Magnesium Total Bilirubin AST ALT Alkaline Phosphatase Ammonia Total Creatine Kinase CK-MB (CK-2) CK-MB (CK-2) Rel Index Total Protein Albumin Urine WBC (Auto) Vancomycin Trough Salicylates Acetaminophen Plasma/Serum Alcohol Crossmatch 01/11/20 01/12/20 01/12/20 18:19 00:53 05:24 WBC RBC Hgb Hct MCH RDW Plt Count Lymph % (Auto) Sunflower % (Auto) Sunflower # Baso # Seg Neutrophils % Seg Neuts % (Manual) Lymphocytes % (Manual) Monocytes % (Manual) Seg Neutrophils # Seg Neutrophils # Man Lymphocytes # (Manual) Monocytes # (Manual) Eosinophils # (Manual) Basophils # (Manual) PT INR APTT ABG pH ABG pO2 ABG HCO3 ABG O2 Saturation ABG Base Excess ABG Hemoglobin Oxyhemoglobin Sodium Potassium Chloride Carbon Dioxide BUN Creatinine Glucose POC Glucose 126 H 126 H 128 H Lactic Acid Calcium Ionized Calcium Phosphorus Magnesium Total Bilirubin AST ALT Alkaline Phosphatase Ammonia Total Creatine Kinase CK-MB (CK-2) CK-MB (CK-2) Rel Index Total Protein Albumin Urine WBC (Auto) Vancomycin Trough Salicylates Acetaminophen Plasma/Serum Alcohol Crossmatch 01/12/20 01/12/20 01/13/20 13:39 18:02 00:27 WBC RBC Hgb Hct MCH RDW Plt Count Lymph % (Auto) Sunflower % (Auto) Sunflower # Baso # Seg Neutrophils % Seg Neuts % (Manual) Lymphocytes % (Manual) Monocytes % (Manual) Seg Neutrophils # Seg Neutrophils # Man Lymphocytes # (Manual) Monocytes # (Manual) Eosinophils # (Manual) Basophils # (Manual) PT INR APTT ABG pH ABG pO2 ABG HCO3 ABG O2 Saturation ABG Base Excess ABG Hemoglobin Oxyhemoglobin Sodium Potassium Chloride Carbon Dioxide BUN Creatinine Glucose POC Glucose 146 H 125 H 131 H Lactic Acid Calcium Ionized Calcium Phosphorus Magnesium Total Bilirubin AST ALT Alkaline Phosphatase Ammonia Total Creatine Kinase CK-MB (CK-2) CK-MB (CK-2) Rel Index Total Protein Albumin Urine WBC (Auto) Vancomycin Trough Salicylates Acetaminophen Plasma/Serum Alcohol Crossmatch 01/13/20 01/13/20 01/13/20 05:44 11:54 17:18 WBC RBC Hgb Hct MCH RDW Plt Count Lymph % (Auto) Sunflower % (Auto) Sunflower # Baso # Seg Neutrophils % Seg Neuts % (Manual) Lymphocytes % (Manual) Monocytes % (Manual) Seg Neutrophils # Seg Neutrophils # Man Lymphocytes # (Manual) Monocytes # (Manual) Eosinophils # (Manual) Basophils # (Manual) PT INR APTT ABG pH ABG pO2 ABG HCO3 ABG O2 Saturation ABG Base Excess ABG Hemoglobin Oxyhemoglobin Sodium Potassium Chloride Carbon Dioxide BUN Creatinine Glucose POC Glucose 148 H 140 H 130 H Lactic Acid Calcium Ionized Calcium Phosphorus Magnesium Total Bilirubin AST ALT Alkaline Phosphatase Ammonia Total Creatine Kinase CK-MB (CK-2) CK-MB (CK-2) Rel Index Total Protein Albumin Urine WBC (Auto) Vancomycin Trough Salicylates Acetaminophen Plasma/Serum Alcohol Crossmatch 01/14/20 01/14/20 01/14/20 00:16 05:45 12:19 WBC RBC Hgb Hct MCH RDW Plt Count Lymph % (Auto) Sunflower % (Auto) Sunflower # Baso # Seg Neutrophils % Seg Neuts % (Manual) Lymphocytes % (Manual) Monocytes % (Manual) Seg Neutrophils # Seg Neutrophils # Man Lymphocytes # (Manual) Monocytes # (Manual) Eosinophils # (Manual) Basophils # (Manual) PT INR APTT ABG pH ABG pO2 ABG HCO3 ABG O2 Saturation ABG Base Excess ABG Hemoglobin Oxyhemoglobin Sodium Potassium Chloride Carbon Dioxide BUN Creatinine Glucose POC Glucose 125 H 146 H 147 H Lactic Acid Calcium Ionized Calcium Phosphorus Magnesium Total Bilirubin AST ALT Alkaline Phosphatase Ammonia Total Creatine Kinase CK-MB (CK-2) CK-MB (CK-2) Rel Index Total Protein Albumin Urine WBC (Auto) Vancomycin Trough Salicylates Acetaminophen Plasma/Serum Alcohol Crossmatch 01/14/20 01/14/20 01/15/20 18:10 23:54 05:14 WBC RBC Hgb Hct MCH RDW Plt Count Lymph % (Auto) Sunflower % (Auto) Sunflower # Baso # Seg Neutrophils % Seg Neuts % (Manual) Lymphocytes % (Manual) Monocytes % (Manual) Seg Neutrophils # Seg Neutrophils # Man Lymphocytes # (Manual) Monocytes # (Manual) Eosinophils # (Manual) Basophils # (Manual) PT INR APTT ABG pH ABG pO2 ABG HCO3 ABG O2 Saturation ABG Base Excess ABG Hemoglobin Oxyhemoglobin Sodium Potassium Chloride Carbon Dioxide BUN Creatinine Glucose POC Glucose 136 H 109 H 111 H Lactic Acid Calcium Ionized Calcium Phosphorus Magnesium Total Bilirubin AST ALT Alkaline Phosphatase Ammonia Total Creatine Kinase CK-MB (CK-2) CK-MB (CK-2) Rel Index Total Protein Albumin Urine WBC (Auto) Vancomycin Trough Salicylates Acetaminophen Plasma/Serum Alcohol Crossmatch 01/15/20 01/15/20 01/16/20 12:34 23:25 05:06 WBC RBC Hgb Hct MCH RDW Plt Count Lymph % (Auto) Sunflower % (Auto) Sunflower # Baso # Seg Neutrophils % Seg Neuts % (Manual) Lymphocytes % (Manual) Monocytes % (Manual) Seg Neutrophils # Seg Neutrophils # Man Lymphocytes # (Manual) Monocytes # (Manual) Eosinophils # (Manual) Basophils # (Manual) PT INR APTT ABG pH ABG pO2 ABG HCO3 ABG O2 Saturation ABG Base Excess ABG Hemoglobin Oxyhemoglobin Sodium Potassium Chloride Carbon Dioxide BUN Creatinine Glucose POC Glucose 131 H 120 H 121 H Lactic Acid Calcium Ionized Calcium Phosphorus Magnesium Total Bilirubin AST ALT Alkaline Phosphatase Ammonia Total Creatine Kinase CK-MB (CK-2) CK-MB (CK-2) Rel Index Total Protein Albumin Urine WBC (Auto) Vancomycin Trough Salicylates Acetaminophen Plasma/Serum Alcohol Crossmatch 01/16/20 01/16/20 01/17/20 12:15 23:46 05:32 WBC 13.6 H RBC 3.27 L Hgb 9.3 L Hct 28.5 L MCH RDW 17.0 H Plt Count 490 H Lymph % (Auto) 13.1 L Sunflower % (Auto) Sunflower # 1.0 H Baso # Seg Neutrophils % 77.5 H Seg Neuts % (Manual) Lymphocytes % (Manual) Monocytes % (Manual) Seg Neutrophils # 10.5 H Seg Neutrophils # Man Lymphocytes # (Manual) Monocytes # (Manual) Eosinophils # (Manual) Basophils # (Manual) PT INR APTT ABG pH ABG pO2 ABG HCO3 ABG O2 Saturation ABG Base Excess ABG Hemoglobin Oxyhemoglobin Sodium Potassium Chloride Carbon Dioxide BUN Creatinine Glucose POC Glucose 152 H 107 H Lactic Acid Calcium Ionized Calcium Phosphorus Magnesium Total Bilirubin AST ALT Alkaline Phosphatase Ammonia Total Creatine Kinase CK-MB (CK-2) CK-MB (CK-2) Rel Index Total Protein Albumin Urine WBC (Auto) Vancomycin Trough Salicylates Acetaminophen Plasma/Serum Alcohol Crossmatch 01/17/20 01/17/20 01/17/20 06:47 12:16 17:21 WBC RBC Hgb Hct MCH RDW Plt Count Lymph % (Auto) Sunflower % (Auto) Sunflower # Baso # Seg Neutrophils % Seg Neuts % (Manual) Lymphocytes % (Manual) Monocytes % (Manual) Seg Neutrophils # Seg Neutrophils # Man Lymphocytes # (Manual) Monocytes # (Manual) Eosinophils # (Manual) Basophils # (Manual) PT INR APTT ABG pH ABG pO2 ABG HCO3 ABG O2 Saturation ABG Base Excess ABG Hemoglobin Oxyhemoglobin Sodium Potassium Chloride Carbon Dioxide BUN Creatinine Glucose POC Glucose 112 H 145 H 150 H Lactic Acid Calcium Ionized Calcium Phosphorus Magnesium Total Bilirubin AST ALT Alkaline Phosphatase Ammonia Total Creatine Kinase CK-MB (CK-2) CK-MB (CK-2) Rel Index Total Protein Albumin Urine WBC (Auto) Vancomycin Trough Salicylates Acetaminophen Plasma/Serum Alcohol Crossmatch 01/17/20 01/18/20 01/18/20 23:34 05:47 12:43 WBC RBC Hgb Hct MCH RDW Plt Count Lymph % (Auto) Sunflower % (Auto) Sunflower # Baso # Seg Neutrophils % Seg Neuts % (Manual) Lymphocytes % (Manual) Monocytes % (Manual) Seg Neutrophils # Seg Neutrophils # Man Lymphocytes # (Manual) Monocytes # (Manual) Eosinophils # (Manual) Basophils # (Manual) PT INR APTT ABG pH ABG pO2 ABG HCO3 ABG O2 Saturation ABG Base Excess ABG Hemoglobin Oxyhemoglobin Sodium Potassium Chloride Carbon Dioxide BUN Creatinine Glucose POC Glucose 160 H 130 H 124 H Lactic Acid Calcium Ionized Calcium Phosphorus Magnesium Total Bilirubin AST ALT Alkaline Phosphatase Ammonia Total Creatine Kinase CK-MB (CK-2) CK-MB (CK-2) Rel Index Total Protein Albumin Urine WBC (Auto) Vancomycin Trough Salicylates Acetaminophen Plasma/Serum Alcohol Crossmatch 01/18/20 01/19/20 01/19/20 18:26 00:14 06:24 WBC RBC Hgb Hct MCH RDW Plt Count Lymph % (Auto) Sunflower % (Auto) Sunflower # Baso # Seg Neutrophils % Seg Neuts % (Manual) Lymphocytes % (Manual) Monocytes % (Manual) Seg Neutrophils # Seg Neutrophils # Man Lymphocytes # (Manual) Monocytes # (Manual) Eosinophils # (Manual) Basophils # (Manual) PT INR APTT ABG pH ABG pO2 ABG HCO3 ABG O2 Saturation ABG Base Excess ABG Hemoglobin Oxyhemoglobin Sodium Potassium Chloride Carbon Dioxide BUN Creatinine Glucose POC Glucose 119 H 114 H 144 H Lactic Acid Calcium Ionized Calcium Phosphorus Magnesium Total Bilirubin AST ALT Alkaline Phosphatase Ammonia Total Creatine Kinase CK-MB (CK-2) CK-MB (CK-2) Rel Index Total Protein Albumin Urine WBC (Auto) Vancomycin Trough Salicylates Acetaminophen Plasma/Serum Alcohol Crossmatch 01/19/20 01/19/20 01/20/20 12:24 17:50 12:06 WBC RBC Hgb Hct MCH RDW Plt Count Lymph % (Auto) Sunflower % (Auto) Sunflower # Baso # Seg Neutrophils % Seg Neuts % (Manual) Lymphocytes % (Manual) Monocytes % (Manual) Seg Neutrophils # Seg Neutrophils # Man Lymphocytes # (Manual) Monocytes # (Manual) Eosinophils # (Manual) Basophils # (Manual) PT INR APTT ABG pH ABG pO2 ABG HCO3 ABG O2 Saturation ABG Base Excess ABG Hemoglobin Oxyhemoglobin Sodium Potassium Chloride Carbon Dioxide BUN Creatinine Glucose POC Glucose 132 H 144 H 135 H Lactic Acid Calcium Ionized Calcium Phosphorus Magnesium Total Bilirubin AST ALT Alkaline Phosphatase Ammonia Total Creatine Kinase CK-MB (CK-2) CK-MB (CK-2) Rel Index Total Protein Albumin Urine WBC (Auto) Vancomycin Trough Salicylates Acetaminophen Plasma/Serum Alcohol Crossmatch 01/21/20 01/21/20 01/21/20 05:46 13:02 23:49 WBC RBC Hgb Hct MCH RDW Plt Count Lymph % (Auto) Sunflower % (Auto) Sunflower # Baso # Seg Neutrophils % Seg Neuts % (Manual) Lymphocytes % (Manual) Monocytes % (Manual) Seg Neutrophils # Seg Neutrophils # Man Lymphocytes # (Manual) Monocytes # (Manual) Eosinophils # (Manual) Basophils # (Manual) PT INR APTT ABG pH ABG pO2 ABG HCO3 ABG O2 Saturation ABG Base Excess ABG Hemoglobin Oxyhemoglobin Sodium Potassium Chloride Carbon Dioxide BUN Creatinine Glucose POC Glucose 114 H 136 H 120 H Lactic Acid Calcium Ionized Calcium Phosphorus Magnesium Total Bilirubin AST ALT Alkaline Phosphatase Ammonia Total Creatine Kinase CK-MB (CK-2) CK-MB (CK-2) Rel Index Total Protein Albumin Urine WBC (Auto) Vancomycin Trough Salicylates Acetaminophen Plasma/Serum Alcohol Crossmatch 01/22/20 01/22/20 01/22/20 05:41 11:44 16:31 WBC RBC Hgb Hct MCH RDW Plt Count Lymph % (Auto) Sunflower % (Auto) Sunflower # Baso # Seg Neutrophils % Seg Neuts % (Manual) Lymphocytes % (Manual) Monocytes % (Manual) Seg Neutrophils # Seg Neutrophils # Man Lymphocytes # (Manual) Monocytes # (Manual) Eosinophils # (Manual) Basophils # (Manual) PT INR APTT ABG pH ABG pO2 ABG HCO3 ABG O2 Saturation ABG Base Excess ABG Hemoglobin Oxyhemoglobin Sodium Potassium Chloride Carbon Dioxide BUN Creatinine Glucose POC Glucose 124 H 173 H 111 H Lactic Acid Calcium Ionized Calcium Phosphorus Magnesium Total Bilirubin AST ALT Alkaline Phosphatase Ammonia Total Creatine Kinase CK-MB (CK-2) CK-MB (CK-2) Rel Index Total Protein Albumin Urine WBC (Auto) Vancomycin Trough Salicylates Acetaminophen Plasma/Serum Alcohol Crossmatch 01/22/20 01/23/20 01/23/20 23:25 05:15 12:15 WBC RBC Hgb Hct MCH RDW Plt Count Lymph % (Auto) Sunflower % (Auto) Sunflower # Baso # Seg Neutrophils % Seg Neuts % (Manual) Lymphocytes % (Manual) Monocytes % (Manual) Seg Neutrophils # Seg Neutrophils # Man Lymphocytes # (Manual) Monocytes # (Manual) Eosinophils # (Manual) Basophils # (Manual) PT INR APTT ABG pH ABG pO2 ABG HCO3 ABG O2 Saturation ABG Base Excess ABG Hemoglobin Oxyhemoglobin Sodium Potassium Chloride Carbon Dioxide BUN Creatinine Glucose POC Glucose 134 H 117 H 129 H Lactic Acid Calcium Ionized Calcium Phosphorus Magnesium Total Bilirubin AST ALT Alkaline Phosphatase Ammonia Total Creatine Kinase CK-MB (CK-2) CK-MB (CK-2) Rel Index Total Protein Albumin Urine WBC (Auto) Vancomycin Trough Salicylates Acetaminophen Plasma/Serum Alcohol Crossmatch 01/23/20 01/23/20 01/23/20 16:58 21:17 23:47 WBC RBC Hgb Hct MCH RDW Plt Count Lymph % (Auto) Sunflower % (Auto) Sunflower # Baso # Seg Neutrophils % Seg Neuts % (Manual) Lymphocytes % (Manual) Monocytes % (Manual) Seg Neutrophils # Seg Neutrophils # Man Lymphocytes # (Manual) Monocytes # (Manual) Eosinophils # (Manual) Basophils # (Manual) PT INR APTT ABG pH ABG pO2 ABG HCO3 ABG O2 Saturation ABG Base Excess ABG Hemoglobin Oxyhemoglobin Sodium Potassium Chloride Carbon Dioxide BUN Creatinine Glucose POC Glucose 156 H 185 H 156 H Lactic Acid Calcium Ionized Calcium Phosphorus Magnesium Total Bilirubin AST ALT Alkaline Phosphatase Ammonia Total Creatine Kinase CK-MB (CK-2) CK-MB (CK-2) Rel Index Total Protein Albumin Urine WBC (Auto) Vancomycin Trough Salicylates Acetaminophen Plasma/Serum Alcohol Crossmatch 01/24/20 01/24/20 01/24/20 04:47 04:47 05:59 WBC 17.8 H RBC 3.60 L Hgb Hct MCH RDW 16.2 H Plt Count 688 H Lymph % (Auto) 11.8 L Sunflower % (Auto) 7.5 H Sunflower # 1.3 H Baso # Seg Neutrophils % 79.9 H Seg Neuts % (Manual) Lymphocytes % (Manual) Monocytes % (Manual) Seg Neutrophils # 14.2 H Seg Neutrophils # Man Lymphocytes # (Manual) Monocytes # (Manual) Eosinophils # (Manual) Basophils # (Manual) PT INR APTT ABG pH ABG pO2 ABG HCO3 ABG O2 Saturation ABG Base Excess ABG Hemoglobin Oxyhemoglobin Sodium 131 L Potassium Chloride 91.2 L Carbon Dioxide BUN 22 H Creatinine 0.3 L Glucose 123 H POC Glucose 147 H Lactic Acid Calcium 10.9 H Ionized Calcium Phosphorus Magnesium Total Bilirubin AST ALT Alkaline Phosphatase Ammonia Total Creatine Kinase CK-MB (CK-2) CK-MB (CK-2) Rel Index Total Protein Albumin Urine WBC (Auto) Vancomycin Trough Salicylates Acetaminophen Plasma/Serum Alcohol Crossmatch 01/24/20 01/24/20 01/25/20 11:47 16:45 00:18 WBC RBC Hgb Hct MCH RDW Plt Count Lymph % (Auto) Sunflower % (Auto) Sunflower # Baso # Seg Neutrophils % Seg Neuts % (Manual) Lymphocytes % (Manual) Monocytes % (Manual) Seg Neutrophils # Seg Neutrophils # Man Lymphocytes # (Manual) Monocytes # (Manual) Eosinophils # (Manual) Basophils # (Manual) PT INR APTT ABG pH ABG pO2 ABG HCO3 ABG O2 Saturation ABG Base Excess ABG Hemoglobin Oxyhemoglobin Sodium Potassium Chloride Carbon Dioxide BUN Creatinine Glucose POC Glucose 114 H 108 H 119 H Lactic Acid Calcium Ionized Calcium Phosphorus Magnesium Total Bilirubin AST ALT Alkaline Phosphatase Ammonia Total Creatine Kinase CK-MB (CK-2) CK-MB (CK-2) Rel Index Total Protein Albumin Urine WBC (Auto) Vancomycin Trough Salicylates Acetaminophen Plasma/Serum Alcohol Crossmatch 01/25/20 01/25/20 01/25/20 07:18 11:58 16:56 WBC RBC Hgb Hct MCH RDW Plt Count Lymph % (Auto) Sunflower % (Auto) Sunflower # Baso # Seg Neutrophils % Seg Neuts % (Manual) Lymphocytes % (Manual) Monocytes % (Manual) Seg Neutrophils # Seg Neutrophils # Man Lymphocytes # (Manual) Monocytes # (Manual) Eosinophils # (Manual) Basophils # (Manual) PT INR APTT ABG pH ABG pO2 ABG HCO3 ABG O2 Saturation ABG Base Excess ABG Hemoglobin Oxyhemoglobin Sodium Potassium Chloride Carbon Dioxide BUN Creatinine Glucose POC Glucose 136 H 136 H 147 H Lactic Acid Calcium Ionized Calcium Phosphorus Magnesium Total Bilirubin AST ALT Alkaline Phosphatase Ammonia Total Creatine Kinase CK-MB (CK-2) CK-MB (CK-2) Rel Index Total Protein Albumin Urine WBC (Auto) Vancomycin Trough Salicylates Acetaminophen Plasma/Serum Alcohol Crossmatch 01/26/20 01/26/20 01/26/20 00:29 05:59 05:59 WBC 12.8 H RBC Hgb Hct MCH RDW 16.4 H Plt Count 743 H Lymph % (Auto) Sunflower % (Auto) Sunflower # 0.9 H Baso # Seg Neutrophils % 76.2 H Seg Neuts % (Manual) Lymphocytes % (Manual) Monocytes % (Manual) Seg Neutrophils # 9.8 H Seg Neutrophils # Man Lymphocytes # (Manual) Monocytes # (Manual) Eosinophils # (Manual) Basophils # (Manual) PT INR APTT ABG pH ABG pO2 ABG HCO3 ABG O2 Saturation ABG Base Excess ABG Hemoglobin Oxyhemoglobin Sodium 132 L Potassium Chloride 90.9 L Carbon Dioxide BUN 23 H Creatinine 0.4 L Glucose 122 H POC Glucose 107 H Lactic Acid Calcium 11.0 H Ionized Calcium Phosphorus Magnesium Total Bilirubin AST ALT Alkaline Phosphatase Ammonia Total Creatine Kinase CK-MB (CK-2) CK-MB (CK-2) Rel Index Total Protein Albumin Urine WBC (Auto) Vancomycin Trough Salicylates Acetaminophen Plasma/Serum Alcohol Crossmatch 01/26/20 01/26/20 01/26/20 06:27 12:06 16:49 WBC RBC Hgb Hct MCH RDW Plt Count Lymph % (Auto) Sunflower % (Auto) Sunflower # Baso # Seg Neutrophils % Seg Neuts % (Manual) Lymphocytes % (Manual) Monocytes % (Manual) Seg Neutrophils # Seg Neutrophils # Man Lymphocytes # (Manual) Monocytes # (Manual) Eosinophils # (Manual) Basophils # (Manual) PT INR APTT ABG pH ABG pO2 ABG HCO3 ABG O2 Saturation ABG Base Excess ABG Hemoglobin Oxyhemoglobin Sodium Potassium Chloride Carbon Dioxide BUN Creatinine Glucose POC Glucose 132 H 132 H 110 H Lactic Acid Calcium Ionized Calcium Phosphorus Magnesium Total Bilirubin AST ALT Alkaline Phosphatase Ammonia Total Creatine Kinase CK-MB (CK-2) CK-MB (CK-2) Rel Index Total Protein Albumin Urine WBC (Auto) Vancomycin Trough Salicylates Acetaminophen Plasma/Serum Alcohol Crossmatch 01/27/20 01/27/20 01/27/20 00:08 11:49 16:24 WBC RBC Hgb Hct MCH RDW Plt Count Lymph % (Auto) Sunflower % (Auto) Sunflower # Baso # Seg Neutrophils % Seg Neuts % (Manual) Lymphocytes % (Manual) Monocytes % (Manual) Seg Neutrophils # Seg Neutrophils # Man Lymphocytes # (Manual) Monocytes # (Manual) Eosinophils # (Manual) Basophils # (Manual) PT INR APTT ABG pH ABG pO2 ABG HCO3 ABG O2 Saturation ABG Base Excess ABG Hemoglobin Oxyhemoglobin Sodium Potassium Chloride Carbon Dioxide BUN Creatinine Glucose POC Glucose 107 H 119 H 129 H Lactic Acid Calcium Ionized Calcium Phosphorus Magnesium Total Bilirubin AST ALT Alkaline Phosphatase Ammonia Total Creatine Kinase CK-MB (CK-2) CK-MB (CK-2) Rel Index Total Protein Albumin Urine WBC (Auto) Vancomycin Trough Salicylates Acetaminophen Plasma/Serum Alcohol Crossmatch 01/27/20 01/28/20 01/28/20 18:28 01:00 06:22 WBC RBC Hgb Hct MCH RDW Plt Count Lymph % (Auto) Sunflower % (Auto) Sunflower # Baso # Seg Neutrophils % Seg Neuts % (Manual) Lymphocytes % (Manual) Monocytes % (Manual) Seg Neutrophils # Seg Neutrophils # Man Lymphocytes # (Manual) Monocytes # (Manual) Eosinophils # (Manual) Basophils # (Manual) PT INR APTT ABG pH ABG pO2 ABG HCO3 ABG O2 Saturation ABG Base Excess ABG Hemoglobin Oxyhemoglobin Sodium Potassium Chloride Carbon Dioxide BUN Creatinine Glucose POC Glucose 126 H 121 H 114 H Lactic Acid Calcium Ionized Calcium Phosphorus Magnesium Total Bilirubin AST ALT Alkaline Phosphatase Ammonia Total Creatine Kinase CK-MB (CK-2) CK-MB (CK-2) Rel Index Total Protein Albumin Urine WBC (Auto) Vancomycin Trough Salicylates Acetaminophen Plasma/Serum Alcohol Crossmatch 01/28/20 01/28/20 01/29/20 11:47 18:00 00:05 WBC RBC Hgb Hct MCH RDW Plt Count Lymph % (Auto) Sunflower % (Auto) Sunflower # Baso # Seg Neutrophils % Seg Neuts % (Manual) Lymphocytes % (Manual) Monocytes % (Manual) Seg Neutrophils # Seg Neutrophils # Man Lymphocytes # (Manual) Monocytes # (Manual) Eosinophils # (Manual) Basophils # (Manual) PT INR APTT ABG pH ABG pO2 ABG HCO3 ABG O2 Saturation ABG Base Excess ABG Hemoglobin Oxyhemoglobin Sodium Potassium Chloride Carbon Dioxide BUN Creatinine Glucose POC Glucose 106 H 117 H 127 H Lactic Acid Calcium Ionized Calcium Phosphorus Magnesium Total Bilirubin AST ALT Alkaline Phosphatase Ammonia Total Creatine Kinase CK-MB (CK-2) CK-MB (CK-2) Rel Index Total Protein Albumin Urine WBC (Auto) Vancomycin Trough Salicylates Acetaminophen Plasma/Serum Alcohol Crossmatch 01/29/20 01/29/20 01/29/20 06:04 11:40 16:38 WBC RBC Hgb Hct MCH RDW Plt Count Lymph % (Auto) Sunflower % (Auto) Sunflower # Baso # Seg Neutrophils % Seg Neuts % (Manual) Lymphocytes % (Manual) Monocytes % (Manual) Seg Neutrophils # Seg Neutrophils # Man Lymphocytes # (Manual) Monocytes # (Manual) Eosinophils # (Manual) Basophils # (Manual) PT INR APTT ABG pH ABG pO2 ABG HCO3 ABG O2 Saturation ABG Base Excess ABG Hemoglobin Oxyhemoglobin Sodium Potassium Chloride Carbon Dioxide BUN Creatinine Glucose POC Glucose 147 H 139 H 143 H Lactic Acid Calcium Ionized Calcium Phosphorus Magnesium Total Bilirubin AST ALT Alkaline Phosphatase Ammonia Total Creatine Kinase CK-MB (CK-2) CK-MB (CK-2) Rel Index Total Protein Albumin Urine WBC (Auto) Vancomycin Trough Salicylates Acetaminophen Plasma/Serum Alcohol Crossmatch 01/29/20 01/30/20 01/30/20 23:46 06:43 12:07 WBC RBC Hgb Hct MCH RDW Plt Count Lymph % (Auto) Sunflower % (Auto) Sunflower # Baso # Seg Neutrophils % Seg Neuts % (Manual) Lymphocytes % (Manual) Monocytes % (Manual) Seg Neutrophils # Seg Neutrophils # Man Lymphocytes # (Manual) Monocytes # (Manual) Eosinophils # (Manual) Basophils # (Manual) PT INR APTT ABG pH ABG pO2 ABG HCO3 ABG O2 Saturation ABG Base Excess ABG Hemoglobin Oxyhemoglobin Sodium Potassium Chloride Carbon Dioxide BUN Creatinine Glucose POC Glucose 122 H 122 H 134 H Lactic Acid Calcium Ionized Calcium Phosphorus Magnesium Total Bilirubin AST ALT Alkaline Phosphatase Ammonia Total Creatine Kinase CK-MB (CK-2) CK-MB (CK-2) Rel Index Total Protein Albumin Urine WBC (Auto) Vancomycin Trough Salicylates Acetaminophen Plasma/Serum Alcohol Crossmatch 01/30/20 01/31/20 01/31/20 17:59 00:52 05:54 WBC RBC Hgb Hct MCH RDW Plt Count Lymph % (Auto) Sunflower % (Auto) Sunflower # Baso # Seg Neutrophils % Seg Neuts % (Manual) Lymphocytes % (Manual) Monocytes % (Manual) Seg Neutrophils # Seg Neutrophils # Man Lymphocytes # (Manual) Monocytes # (Manual) Eosinophils # (Manual) Basophils # (Manual) PT INR APTT ABG pH ABG pO2 ABG HCO3 ABG O2 Saturation ABG Base Excess ABG Hemoglobin Oxyhemoglobin Sodium Potassium Chloride Carbon Dioxide BUN Creatinine Glucose POC Glucose 116 H 127 H 127 H Lactic Acid Calcium Ionized Calcium Phosphorus Magnesium Total Bilirubin AST ALT Alkaline Phosphatase Ammonia Total Creatine Kinase CK-MB (CK-2) CK-MB (CK-2) Rel Index Total Protein Albumin Urine WBC (Auto) Vancomycin Trough Salicylates Acetaminophen Plasma/Serum Alcohol Crossmatch 01/31/20 02/01/20 02/01/20 12:20 00:48 12:21 WBC RBC Hgb Hct MCH RDW Plt Count Lymph % (Auto) Sunflower % (Auto) Sunflower # Baso # Seg Neutrophils % Seg Neuts % (Manual) Lymphocytes % (Manual) Monocytes % (Manual) Seg Neutrophils # Seg Neutrophils # Man Lymphocytes # (Manual) Monocytes # (Manual) Eosinophils # (Manual) Basophils # (Manual) PT INR APTT ABG pH ABG pO2 ABG HCO3 ABG O2 Saturation ABG Base Excess ABG Hemoglobin Oxyhemoglobin Sodium Potassium Chloride Carbon Dioxide BUN Creatinine Glucose POC Glucose 126 H 154 H 123 H Lactic Acid Calcium Ionized Calcium Phosphorus Magnesium Total Bilirubin AST ALT Alkaline Phosphatase Ammonia Total Creatine Kinase CK-MB (CK-2) CK-MB (CK-2) Rel Index Total Protein Albumin Urine WBC (Auto) Vancomycin Trough Salicylates Acetaminophen Plasma/Serum Alcohol Crossmatch 02/01/20 02/02/20 02/02/20 23:58 06:08 11:50 WBC RBC Hgb Hct MCH RDW Plt Count Lymph % (Auto) Sunflower % (Auto) Sunflower # Baso # Seg Neutrophils % Seg Neuts % (Manual) Lymphocytes % (Manual) Monocytes % (Manual) Seg Neutrophils # Seg Neutrophils # Man Lymphocytes # (Manual) Monocytes # (Manual) Eosinophils # (Manual) Basophils # (Manual) PT INR APTT ABG pH ABG pO2 ABG HCO3 ABG O2 Saturation ABG Base Excess ABG Hemoglobin Oxyhemoglobin Sodium Potassium Chloride Carbon Dioxide BUN Creatinine Glucose POC Glucose 125 H 144 H 131 H Lactic Acid Calcium Ionized Calcium Phosphorus Magnesium Total Bilirubin AST ALT Alkaline Phosphatase Ammonia Total Creatine Kinase CK-MB (CK-2) CK-MB (CK-2) Rel Index Total Protein Albumin Urine WBC (Auto) Vancomycin Trough Salicylates Acetaminophen Plasma/Serum Alcohol Crossmatch 02/02/20 02/03/20 02/03/20 17:53 00:14 05:47 WBC RBC Hgb Hct MCH RDW Plt Count Lymph % (Auto) Sunflower % (Auto) Sunflower # Baso # Seg Neutrophils % Seg Neuts % (Manual) Lymphocytes % (Manual) Monocytes % (Manual) Seg Neutrophils # Seg Neutrophils # Man Lymphocytes # (Manual) Monocytes # (Manual) Eosinophils # (Manual) Basophils # (Manual) PT INR APTT ABG pH ABG pO2 ABG HCO3 ABG O2 Saturation ABG Base Excess ABG Hemoglobin Oxyhemoglobin Sodium Potassium Chloride Carbon Dioxide BUN Creatinine Glucose POC Glucose 108 H 122 H 118 H Lactic Acid Calcium Ionized Calcium Phosphorus Magnesium Total Bilirubin AST ALT Alkaline Phosphatase Ammonia Total Creatine Kinase CK-MB (CK-2) CK-MB (CK-2) Rel Index Total Protein Albumin Urine WBC (Auto) Vancomycin Trough Salicylates Acetaminophen Plasma/Serum Alcohol Crossmatch 02/03/20 02/03/20 02/03/20 05:59 05:59 11:49 WBC RBC 3.48 L Hgb Hct 29.9 L MCH RDW 16.2 H Plt Count 707 H Lymph % (Auto) Sunflower % (Auto) 9.3 H Sunflower # 0.9 H Baso # Seg Neutrophils % Seg Neuts % (Manual) Lymphocytes % (Manual) Monocytes % (Manual) Seg Neutrophils # Seg Neutrophils # Man Lymphocytes # (Manual) Monocytes # (Manual) Eosinophils # (Manual) Basophils # (Manual) PT INR APTT ABG pH ABG pO2 ABG HCO3 ABG O2 Saturation ABG Base Excess ABG Hemoglobin Oxyhemoglobin Sodium 136 L Potassium Chloride 93.4 L Carbon Dioxide BUN 20 H Creatinine 0.5 L Glucose 101 H POC Glucose 133 H Lactic Acid Calcium 10.8 H Ionized Calcium Phosphorus Magnesium Total Bilirubin AST ALT Alkaline Phosphatase Ammonia Total Creatine Kinase CK-MB (CK-2) CK-MB (CK-2) Rel Index Total Protein Albumin Urine WBC (Auto) Vancomycin Trough Salicylates Acetaminophen Plasma/Serum Alcohol Crossmatch 02/03/20 02/04/20 02/04/20 23:19 05:37 23:56 WBC RBC Hgb Hct MCH RDW Plt Count Lymph % (Auto) Sunflower % (Auto) Sunflower # Baso # Seg Neutrophils % Seg Neuts % (Manual) Lymphocytes % (Manual) Monocytes % (Manual) Seg Neutrophils # Seg Neutrophils # Man Lymphocytes # (Manual) Monocytes # (Manual) Eosinophils # (Manual) Basophils # (Manual) PT INR APTT ABG pH ABG pO2 ABG HCO3 ABG O2 Saturation ABG Base Excess ABG Hemoglobin Oxyhemoglobin Sodium Potassium Chloride Carbon Dioxide BUN Creatinine Glucose POC Glucose 135 H 108 H 158 H Lactic Acid Calcium Ionized Calcium Phosphorus Magnesium Total Bilirubin AST ALT Alkaline Phosphatase Ammonia Total Creatine Kinase CK-MB (CK-2) CK-MB (CK-2) Rel Index Total Protein Albumin Urine WBC (Auto) Vancomycin Trough Salicylates Acetaminophen Plasma/Serum Alcohol Crossmatch 02/05/20 02/05/20 02/06/20 05:33 23:24 05:50 WBC RBC Hgb Hct MCH RDW Plt Count Lymph % (Auto) Sunflower % (Auto) Sunflower # Baso # Seg Neutrophils % Seg Neuts % (Manual) Lymphocytes % (Manual) Monocytes % (Manual) Seg Neutrophils # Seg Neutrophils # Man Lymphocytes # (Manual) Monocytes # (Manual) Eosinophils # (Manual) Basophils # (Manual) PT INR APTT ABG pH ABG pO2 ABG HCO3 ABG O2 Saturation ABG Base Excess ABG Hemoglobin Oxyhemoglobin Sodium Potassium Chloride Carbon Dioxide BUN Creatinine Glucose POC Glucose 152 H 158 H 110 H Lactic Acid Calcium Ionized Calcium Phosphorus Magnesium Total Bilirubin AST ALT Alkaline Phosphatase Ammonia Total Creatine Kinase CK-MB (CK-2) CK-MB (CK-2) Rel Index Total Protein Albumin Urine WBC (Auto) Vancomycin Trough Salicylates Acetaminophen Plasma/Serum Alcohol Crossmatch 02/06/20 02/07/20 02/07/20 16:03 00:13 05:27 WBC RBC Hgb Hct MCH RDW Plt Count Lymph % (Auto) Sunflower % (Auto) Sunflower # Baso # Seg Neutrophils % Seg Neuts % (Manual) Lymphocytes % (Manual) Monocytes % (Manual) Seg Neutrophils # Seg Neutrophils # Man Lymphocytes # (Manual) Monocytes # (Manual) Eosinophils # (Manual) Basophils # (Manual) PT INR APTT ABG pH ABG pO2 ABG HCO3 ABG O2 Saturation ABG Base Excess ABG Hemoglobin Oxyhemoglobin Sodium Potassium Chloride Carbon Dioxide BUN Creatinine Glucose POC Glucose 130 H 115 H 115 H Lactic Acid Calcium Ionized Calcium Phosphorus Magnesium Total Bilirubin AST ALT Alkaline Phosphatase Ammonia Total Creatine Kinase CK-MB (CK-2) CK-MB (CK-2) Rel Index Total Protein Albumin Urine WBC (Auto) Vancomycin Trough Salicylates Acetaminophen Plasma/Serum Alcohol Crossmatch 02/07/20 02/07/20 02/08/20 11:42 17:23 00:37 WBC RBC Hgb Hct MCH RDW Plt Count Lymph % (Auto) Sunflower % (Auto) Sunflower # Baso # Seg Neutrophils % Seg Neuts % (Manual) Lymphocytes % (Manual) Monocytes % (Manual) Seg Neutrophils # Seg Neutrophils # Man Lymphocytes # (Manual) Monocytes # (Manual) Eosinophils # (Manual) Basophils # (Manual) PT INR APTT ABG pH ABG pO2 ABG HCO3 ABG O2 Saturation ABG Base Excess ABG Hemoglobin Oxyhemoglobin Sodium Potassium Chloride Carbon Dioxide BUN Creatinine Glucose POC Glucose 113 H 114 H 136 H Lactic Acid Calcium Ionized Calcium Phosphorus Magnesium Total Bilirubin AST ALT Alkaline Phosphatase Ammonia Total Creatine Kinase CK-MB (CK-2) CK-MB (CK-2) Rel Index Total Protein Albumin Urine WBC (Auto) Vancomycin Trough Salicylates Acetaminophen Plasma/Serum Alcohol Crossmatch 02/08/20 02/08/20 02/08/20 08:52 11:42 17:02 WBC RBC Hgb Hct MCH RDW Plt Count Lymph % (Auto) Sunflower % (Auto) Sunflower # Baso # Seg Neutrophils % Seg Neuts % (Manual) Lymphocytes % (Manual) Monocytes % (Manual) Seg Neutrophils # Seg Neutrophils # Man Lymphocytes # (Manual) Monocytes # (Manual) Eosinophils # (Manual) Basophils # (Manual) PT INR APTT ABG pH ABG pO2 ABG HCO3 ABG O2 Saturation ABG Base Excess ABG Hemoglobin Oxyhemoglobin Sodium 136 L Potassium Chloride 95.7 L Carbon Dioxide BUN 21 H Creatinine 0.4 L Glucose POC Glucose 128 H 145 H Lactic Acid Calcium 10.4 H Ionized Calcium Phosphorus Magnesium Total Bilirubin AST ALT Alkaline Phosphatase Ammonia Total Creatine Kinase CK-MB (CK-2) CK-MB (CK-2) Rel Index Total Protein Albumin Urine WBC (Auto) Vancomycin Trough Salicylates Acetaminophen Plasma/Serum Alcohol Crossmatch 02/09/20 02/09/20 02/09/20 01:05 11:52 16:19 WBC RBC Hgb Hct MCH RDW Plt Count Lymph % (Auto) Sunflower % (Auto) Sunflower # Baso # Seg Neutrophils % Seg Neuts % (Manual) Lymphocytes % (Manual) Monocytes % (Manual) Seg Neutrophils # Seg Neutrophils # Man Lymphocytes # (Manual) Monocytes # (Manual) Eosinophils # (Manual) Basophils # (Manual) PT INR APTT ABG pH ABG pO2 ABG HCO3 ABG O2 Saturation ABG Base Excess ABG Hemoglobin Oxyhemoglobin Sodium Potassium Chloride Carbon Dioxide BUN Creatinine Glucose POC Glucose 117 H 141 H 113 H Lactic Acid Calcium Ionized Calcium Phosphorus Magnesium Total Bilirubin AST ALT Alkaline Phosphatase Ammonia Total Creatine Kinase CK-MB (CK-2) CK-MB (CK-2) Rel Index Total Protein Albumin Urine WBC (Auto) Vancomycin Trough Salicylates Acetaminophen Plasma/Serum Alcohol Crossmatch 02/10/20 02/10/20 02/10/20 05:25 12:50 17:08 WBC RBC Hgb Hct MCH RDW Plt Count Lymph % (Auto) Sunflower % (Auto) Sunflower # Baso # Seg Neutrophils % Seg Neuts % (Manual) Lymphocytes % (Manual) Monocytes % (Manual) Seg Neutrophils # Seg Neutrophils # Man Lymphocytes # (Manual) Monocytes # (Manual) Eosinophils # (Manual) Basophils # (Manual) PT INR APTT ABG pH ABG pO2 ABG HCO3 ABG O2 Saturation ABG Base Excess ABG Hemoglobin Oxyhemoglobin Sodium Potassium Chloride Carbon Dioxide BUN Creatinine Glucose POC Glucose 136 H 127 H 111 H Lactic Acid Calcium Ionized Calcium Phosphorus Magnesium Total Bilirubin AST ALT Alkaline Phosphatase Ammonia Total Creatine Kinase CK-MB (CK-2) CK-MB (CK-2) Rel Index Total Protein Albumin Urine WBC (Auto) Vancomycin Trough Salicylates Acetaminophen Plasma/Serum Alcohol Crossmatch 02/10/20 02/11/20 02/11/20 23:55 06:11 12:07 WBC RBC Hgb Hct MCH RDW Plt Count Lymph % (Auto) Sunflower % (Auto) Sunflower # Baso # Seg Neutrophils % Seg Neuts % (Manual) Lymphocytes % (Manual) Monocytes % (Manual) Seg Neutrophils # Seg Neutrophils # Man Lymphocytes # (Manual) Monocytes # (Manual) Eosinophils # (Manual) Basophils # (Manual) PT INR APTT ABG pH ABG pO2 ABG HCO3 ABG O2 Saturation ABG Base Excess ABG Hemoglobin Oxyhemoglobin Sodium Potassium Chloride Carbon Dioxide BUN Creatinine Glucose POC Glucose 129 H 128 H 141 H Lactic Acid Calcium Ionized Calcium Phosphorus Magnesium Total Bilirubin AST ALT Alkaline Phosphatase Ammonia Total Creatine Kinase CK-MB (CK-2) CK-MB (CK-2) Rel Index Total Protein Albumin Urine WBC (Auto) Vancomycin Trough Salicylates Acetaminophen Plasma/Serum Alcohol Crossmatch 02/11/20 02/12/20 02/13/20 18:22 02:39 06:45 WBC RBC Hgb Hct MCH RDW Plt Count Lymph % (Auto) Sunflower % (Auto) Sunflower # Baso # Seg Neutrophils % Seg Neuts % (Manual) Lymphocytes % (Manual) Monocytes % (Manual) Seg Neutrophils # Seg Neutrophils # Man Lymphocytes # (Manual) Monocytes # (Manual) Eosinophils # (Manual) Basophils # (Manual) PT INR APTT ABG pH ABG pO2 ABG HCO3 ABG O2 Saturation ABG Base Excess ABG Hemoglobin Oxyhemoglobin Sodium Potassium Chloride Carbon Dioxide BUN Creatinine Glucose POC Glucose 118 H 107 H 124 H Lactic Acid Calcium Ionized Calcium Phosphorus Magnesium Total Bilirubin AST ALT Alkaline Phosphatase Ammonia Total Creatine Kinase CK-MB (CK-2) CK-MB (CK-2) Rel Index Total Protein Albumin Urine WBC (Auto) Vancomycin Trough Salicylates Acetaminophen Plasma/Serum Alcohol Crossmatch 02/13/20 02/13/20 02/14/20 12:26 18:19 00:21 WBC RBC Hgb Hct MCH RDW Plt Count Lymph % (Auto) Sunflower % (Auto) Sunflower # Baso # Seg Neutrophils % Seg Neuts % (Manual) Lymphocytes % (Manual) Monocytes % (Manual) Seg Neutrophils # Seg Neutrophils # Man Lymphocytes # (Manual) Monocytes # (Manual) Eosinophils # (Manual) Basophils # (Manual) PT INR APTT ABG pH ABG pO2 ABG HCO3 ABG O2 Saturation ABG Base Excess ABG Hemoglobin Oxyhemoglobin Sodium Potassium Chloride Carbon Dioxide BUN Creatinine Glucose POC Glucose 124 H 118 H 130 H Lactic Acid Calcium Ionized Calcium Phosphorus Magnesium Total Bilirubin AST ALT Alkaline Phosphatase Ammonia Total Creatine Kinase CK-MB (CK-2) CK-MB (CK-2) Rel Index Total Protein Albumin Urine WBC (Auto) Vancomycin Trough Salicylates Acetaminophen Plasma/Serum Alcohol Crossmatch 02/14/20 02/14/20 02/16/20 11:19 16:16 00:58 WBC RBC Hgb Hct MCH RDW Plt Count Lymph % (Auto) Sunflower % (Auto) Sunflower # Baso # Seg Neutrophils % Seg Neuts % (Manual) Lymphocytes % (Manual) Monocytes % (Manual) Seg Neutrophils # Seg Neutrophils # Man Lymphocytes # (Manual) Monocytes # (Manual) Eosinophils # (Manual) Basophils # (Manual) PT INR APTT ABG pH ABG pO2 ABG HCO3 ABG O2 Saturation ABG Base Excess ABG Hemoglobin Oxyhemoglobin Sodium Potassium Chloride Carbon Dioxide BUN Creatinine Glucose POC Glucose 135 H 119 H 121 H Lactic Acid Calcium Ionized Calcium Phosphorus Magnesium Total Bilirubin AST ALT Alkaline Phosphatase Ammonia Total Creatine Kinase CK-MB (CK-2) CK-MB (CK-2) Rel Index Total Protein Albumin Urine WBC (Auto) Vancomycin Trough Salicylates Acetaminophen Plasma/Serum Alcohol Crossmatch 02/16/20 02/16/20 02/16/20 12:12 18:22 23:51 WBC RBC Hgb Hct MCH RDW Plt Count Lymph % (Auto) Sunflower % (Auto) Sunflower # Baso # Seg Neutrophils % Seg Neuts % (Manual) Lymphocytes % (Manual) Monocytes % (Manual) Seg Neutrophils # Seg Neutrophils # Man Lymphocytes # (Manual) Monocytes # (Manual) Eosinophils # (Manual) Basophils # (Manual) PT INR APTT ABG pH ABG pO2 ABG HCO3 ABG O2 Saturation ABG Base Excess ABG Hemoglobin Oxyhemoglobin Sodium Potassium Chloride Carbon Dioxide BUN Creatinine Glucose POC Glucose 107 H 106 H 128 H Lactic Acid Calcium Ionized Calcium Phosphorus Magnesium Total Bilirubin AST ALT Alkaline Phosphatase Ammonia Total Creatine Kinase CK-MB (CK-2) CK-MB (CK-2) Rel Index Total Protein Albumin Urine WBC (Auto) Vancomycin Trough Salicylates Acetaminophen Plasma/Serum Alcohol Crossmatch 02/17/20 02/17/20 02/17/20 05:50 07:57 07:57 WBC 12.6 H RBC 3.52 L Hgb Hct MCH RDW 15.3 H Plt Count 643 H Lymph % (Auto) Sunflower % (Auto) 8.0 H Sunflower # 1.0 H Baso # Seg Neutrophils % Seg Neuts % (Manual) Lymphocytes % (Manual) Monocytes % (Manual) Seg Neutrophils # 8.5 H Seg Neutrophils # Man Lymphocytes # (Manual) Monocytes # (Manual) Eosinophils # (Manual) Basophils # (Manual) PT INR APTT ABG pH ABG pO2 ABG HCO3 ABG O2 Saturation ABG Base Excess ABG Hemoglobin Oxyhemoglobin Sodium Potassium Chloride 96.9 L Carbon Dioxide BUN 21 H Creatinine 0.4 L Glucose 113 H POC Glucose 116 H Lactic Acid Calcium 10.5 H Ionized Calcium Phosphorus Magnesium Total Bilirubin AST ALT Alkaline Phosphatase Ammonia Total Creatine Kinase CK-MB (CK-2) CK-MB (CK-2) Rel Index Total Protein Albumin Urine WBC (Auto) Vancomycin Trough Salicylates Acetaminophen Plasma/Serum Alcohol Crossmatch 02/17/20 02/17/20 02/18/20 12:05 18:16 00:13 WBC RBC Hgb Hct MCH RDW Plt Count Lymph % (Auto) Sunflower % (Auto) Sunflower # Baso # Seg Neutrophils % Seg Neuts % (Manual) Lymphocytes % (Manual) Monocytes % (Manual) Seg Neutrophils # Seg Neutrophils # Man Lymphocytes # (Manual) Monocytes # (Manual) Eosinophils # (Manual) Basophils # (Manual) PT INR APTT ABG pH ABG pO2 ABG HCO3 ABG O2 Saturation ABG Base Excess ABG Hemoglobin Oxyhemoglobin Sodium Potassium Chloride Carbon Dioxide BUN Creatinine Glucose POC Glucose 139 H 127 H 144 H Lactic Acid Calcium Ionized Calcium Phosphorus Magnesium Total Bilirubin AST ALT Alkaline Phosphatase Ammonia Total Creatine Kinase CK-MB (CK-2) CK-MB (CK-2) Rel Index Total Protein Albumin Urine WBC (Auto) Vancomycin Trough Salicylates Acetaminophen Plasma/Serum Alcohol Crossmatch 02/18/20 02/18/20 02/19/20 17:41 23:28 05:17 WBC RBC Hgb Hct MCH RDW Plt Count Lymph % (Auto) Sunflower % (Auto) Sunflower # Baso # Seg Neutrophils % Seg Neuts % (Manual) Lymphocytes % (Manual) Monocytes % (Manual) Seg Neutrophils # Seg Neutrophils # Man Lymphocytes # (Manual) Monocytes # (Manual) Eosinophils # (Manual) Basophils # (Manual) PT INR APTT ABG pH ABG pO2 ABG HCO3 ABG O2 Saturation ABG Base Excess ABG Hemoglobin Oxyhemoglobin Sodium Potassium Chloride Carbon Dioxide BUN Creatinine Glucose POC Glucose 118 H 166 H 116 H Lactic Acid Calcium Ionized Calcium Phosphorus Magnesium Total Bilirubin AST ALT Alkaline Phosphatase Ammonia Total Creatine Kinase CK-MB (CK-2) CK-MB (CK-2) Rel Index Total Protein Albumin Urine WBC (Auto) Vancomycin Trough Salicylates Acetaminophen Plasma/Serum Alcohol Crossmatch 02/19/20 02/19/20 02/20/20 12:33 17:02 00:12 WBC RBC Hgb Hct MCH RDW Plt Count Lymph % (Auto) Sunflower % (Auto) Sunflower # Baso # Seg Neutrophils % Seg Neuts % (Manual) Lymphocytes % (Manual) Monocytes % (Manual) Seg Neutrophils # Seg Neutrophils # Man Lymphocytes # (Manual) Monocytes # (Manual) Eosinophils # (Manual) Basophils # (Manual) PT INR APTT ABG pH ABG pO2 ABG HCO3 ABG O2 Saturation ABG Base Excess ABG Hemoglobin Oxyhemoglobin Sodium Potassium Chloride Carbon Dioxide BUN Creatinine Glucose POC Glucose 115 H 108 H 153 H Lactic Acid Calcium Ionized Calcium Phosphorus Magnesium Total Bilirubin AST ALT Alkaline Phosphatase Ammonia Total Creatine Kinase CK-MB (CK-2) CK-MB (CK-2) Rel Index Total Protein Albumin Urine WBC (Auto) Vancomycin Trough Salicylates Acetaminophen Plasma/Serum Alcohol Crossmatch 02/20/20 12:00 WBC RBC Hgb Hct MCH RDW Plt Count Lymph % (Auto) Sunflower % (Auto) Sunflower # Baso # Seg Neutrophils % Seg Neuts % (Manual) Lymphocytes % (Manual) Monocytes % (Manual) Seg Neutrophils # Seg Neutrophils # Man Lymphocytes # (Manual) Monocytes # (Manual) Eosinophils # (Manual) Basophils # (Manual) PT INR APTT ABG pH ABG pO2 ABG HCO3 ABG O2 Saturation ABG Base Excess ABG Hemoglobin Oxyhemoglobin Sodium Potassium Chloride Carbon Dioxide BUN Creatinine Glucose POC Glucose 171 H Lactic Acid Calcium Ionized Calcium Phosphorus Magnesium Total Bilirubin AST ALT Alkaline Phosphatase Ammonia Total Creatine Kinase CK-MB (CK-2) CK-MB (CK-2) Rel Index Total Protein Albumin Urine WBC (Auto) Vancomycin Trough Salicylates Acetaminophen Plasma/Serum Alcohol Crossmatch Allied health notes reviewed: RT
[2020-02-20] MEDS: SCOPOLAMINE TRANSDERMAL PATCH 72 HR TD SCH (17:13)
--- NOTE | 2020-02-20 17:17 | Progress Note ---
Assessment and Plan Assessment and plan: 02/17: Patient pending placement, Following extubation, the patient has remained with AMS, on restraints, no new fever but tachycardia, still requiring aggressive pulmonary toilet. 02/19; Pseudomonas sputum cultures, colonization/tracheostomy tube No treatment needed --Anoxic brain injury: suspected CT head: No acute abnormality. EEG ordered showed Generalized slowing. No seizures or epileptiform activity. Patient now opening her eyes, can speak and able to follow minor command by nodding head --Acute Respiratory failure with hypoxia s/p Tracheostomy --Positive sputum cultures; colonization tracheostomy No need to treat --Status post cardiac arrest s/p intubation, s/p trach and PEG on 12/12 with mechanical ventilation, now on T-piece CTA was done and negative for PE, Echo quality is poor, showed diastolic dysfunction continue weaning as tolerated --Oropharyngeal dysphagia s/p PEG --Persistent Tachycardia --BHAVANA / vasomotor nephropathy; resolved --Anemia, microcytic Status post 3 units PRBC transfusion, H&H low stable --Acute metabolic encephalopathy/toxic encephalopathy multifactorial, supportive care --Hyperammonemia -resolved --Metabolic Acidosis Alcohol ketoacidosis vs hypoprofusion Continue to monitor --Acute cystitis --ELevated LFTs, stable now due to ischemic hepatitis. --Leucocytosis with sepsis Source MRSA bacteremia and MSSA pneumonia. UA showed pyuria. RUQ US showed no ascites. Repeat TTE negative for vegetation. Completed 7 days of Ceftriaxone on 11/29/2019. Treated with Abx vancomycin 1 gm IV q 12 hour total 2 week till 12/30/2019 Resolved --MSSA pneumonia: Status post vancomycin till 12/30/2019 --ALcohol USe Disorder given ongoing Alcohol use almost daily, s/p IV Thiamine monitor --Severe hypokalemia -Repleted --Seizure disorder: treat with Keppra --H. Influenzae, tracheobronchitis, treated with abx --Moderate to severe fecal impaction - will add stool softner --Anxiety disorder: Psych consulted --DNR CODE STATUS Disposition: prognosis guarded. PT recommended subacute rehab, discharge pending on placement. negative for COVID 19 Disposition ;awaiting Placement to SNF History Interval history: Patient seen and examined at the bedside On contact isolation due to MRSA Patient alert and awake confused Not in acute distress Tracheostomy on T-piece Vital signs reviewed Hospitalist Physical - Constitutional Vitals: Temp Pulse Resp BP Pulse Ox 98.1 F 104 H 20 130/84 97 02/20/20 07:52 02/20/20 16:48 02/20/20 16:48 02/20/20 07:52 02/20/20 16:48 General appearance: Present: no acute distress, cachectic, disheveled - EENT Eyes: Present: PERRL, EOM intact - Neck Neck: Present: supple, normal ROM - Respiratory Respiratory effort: normal Respiratory: bilateral: diminished, rhonchi, negative: rales, wheezing - Cardiovascular Rhythm: regular Heart Sounds: Present: S1 & S2 - Extremities Extremities: no ischemia, No edema - Abdominal General gastrointestinal: soft, non-tender, non-distended, normal bowel sounds - Integumentary Integumentary: Present: clear, warm - Psychiatric Psychiatric: appropriate mood/affect, cooperative - Neurologic Neurologic: moves all extremities HEART Score - HEART Score Troponin: Troponin T < 0.010 ng/mL (0.00-0.029) 11/22/19 23:27 Results - Labs CBC & Chem 7: 02/17/20 07:57 02/17/20 07:57 Labs: Laboratory Last Values WBC 12.6 K/mm3 (4.5-11.0) H 02/17/20 07:57 RBC 3.52 M/mm3 (3.65-5.03) L 02/17/20 07:57 Hgb 10.2 gm/dl (10.1-14.3) 02/17/20 07:57 Hct 30.8 % (30.3-42.9) 02/17/20 07:57 MCV 88 fl (79-97) 02/17/20 07:57 MCH 29 pg (28-32) 02/17/20 07:57 MCHC 33 % (30-34) 02/17/20 07:57 RDW 15.3 % (13.2-15.2) H 02/17/20 07:57 Plt Count 643 K/mm3 (140-440) H 02/17/20 07:57 Lymph % (Auto) 21.3 % (13.4-35.0) 02/17/20 07:57 [place] % (Auto) 8.0 % (0.0-7.3) H 02/17/20 07:57 Eos % (Auto) 2.5 % (0.0-4.3) 02/17/20 07:57 Baso % (Auto) 0.5 % (0.0-1.8) 02/17/20 07:57 Lymph # 2.7 K/mm3 (1.2-5.4) 02/17/20 07:57 [place] # 1.0 K/mm3 (0.0-0.8) H 02/17/20 07:57 Eos # 0.3 K/mm3 (0.0-0.4) 02/17/20 07:57 Baso # 0.1 K/mm3 (0.0-0.1) 02/17/20 07:57 Add Manual Diff Complete 12/25/19 03:47 Total Counted 200 12/25/19 03:47 Seg Neutrophils % 67.7 % (40.0-70.0) 02/17/20 07:57 Seg Neuts % (Manual) 97.5 % (40.0-70.0) H 12/25/19 03:47 Band Neutrophils % 0 % 12/25/19 03:47 Lymphocytes % (Manual) 1.0 % (13.4-35.0) L 12/25/19 03:47 Reactive Lymphs % (Man) 0 % 12/25/19 03:47 Monocytes % (Manual) 1.5 % (0.0-7.3) 12/25/19 03:47 Eosinophils % (Manual) 0 % (0.0-4.3) 12/25/19 03:47 Basophils % (Manual) 0 % (0.0-1.8) 12/25/19 03:47 Metamyelocytes % 0 % 12/25/19 03:47 Myelocytes % 0 % 12/25/19 03:47 Promyelocytes % 0 % 12/25/19 03:47 Blast Cells % 0 % 12/25/19 03:47 Nucleated RBC % Not Reportable 12/25/19 03:47 Seg Neutrophils # 8.5 K/mm3 (1.8-7.7) H 02/17/20 07:57 Seg Neutrophils # Man 35.3 K/mm3 (1.8-7.7) H 12/25/19 03:47 Band Neutrophils # 0.0 K/mm3 12/25/19 03:47 Lymphocytes # (Manual) 0.4 K/mm3 (1.2-5.4) L 12/25/19 03:47 Abs React Lymphs (Man) 0.0 K/mm3 12/25/19 03:47 Monocytes # (Manual) 0.5 K/mm3 (0.0-0.8) 12/25/19 03:47 Eosinophils # (Manual) 0.0 K/mm3 (0.0-0.4) 12/25/19 03:47 Basophils # (Manual) 0.0 K/mm3 (0.0-0.1) 12/25/19 03:47 Metamyelocytes # 0.0 K/mm3 12/25/19 03:47 Myelocytes # 0.0 K/mm3 12/25/19 03:47 Promyelocytes # 0.0 K/mm3 12/25/19 03:47 Blast Cells # 0.0 K/mm3 12/25/19 03:47 Pathologist Review 12/13/19 07:48 WBC Morphology Not Reportable 12/25/19 03:47 Hypersegmented Neuts Not Reportable 12/25/19 03:47 Hyposegmented Neuts Not Reportable 12/25/19 03:47 Hypogranular Neuts Not Reportable 12/25/19 03:47 Smudge Cells Not Reportable 12/25/19 03:47 Toxic Granulation Not Reportable 12/25/19 03:47 Toxic Vacuolation Not Reportable 12/25/19 03:47 Dohle Bodies Not Reportable 12/25/19 03:47 Pelger-Huet Anomaly Not Reportable 12/25/19 03:47 Dominique Rods Not Reportable 12/25/19 03:47 Platelet Estimate Consistent w auto 12/25/19 03:47 Clumped Platelets Not Reportable 12/25/19 03:47 Plt Clumps, EDTA Not Reportable 12/25/19 03:47 Large Platelets Not Reportable 12/25/19 03:47 Giant Platelets Not Reportable 12/25/19 03:47 Platelet Satelliting Not Reportable 12/25/19 03:47 Plt Morphology Comment Not Reportable 12/25/19 03:47 RBC Morphology Not Reportable 12/25/19 03:47 Dimorphic RBCs Not Reportable 12/25/19 03:47 Polychromasia Not Reportable 12/25/19 03:47 Hypochromasia Not Reportable 12/25/19 03:47 Poikilocytosis Not Reportable 12/25/19 03:47 Anisocytosis 1+ 12/25/19 03:47 Microcytosis Not Reportable 12/25/19 03:47 Macrocytosis Not Reportable 12/25/19 03:47 Spherocytes Not Reportable 12/25/19 03:47 Pappenheimer Bodies Not Reportable 12/25/19 03:47 Sickle Cells Not Reportable 12/25/19 03:47 Target Cells Not Reportable 12/25/19 03:47 Tear Drop Cells Not Reportable 12/25/19 03:47 Ovalocytes Not Reportable 12/25/19 03:47 Helmet Cells Not Reportable 12/25/19 03:47 [place] Bodies Not Reportable 12/25/19 03:47 [place] Rings Not Reportable 12/25/19 03:47 Ceres Cells Not Reportable 12/25/19 03:47 Bite Cells Not Reportable 12/25/19 03:47 Crenated Cell Not Reportable 12/25/19 03:47 Elliptocytes Not Reportable 12/25/19 03:47 Acanthocytes (Spur) Not Reportable 12/25/19 03:47 Rouleaux Not Reportable 12/25/19 03:47 Hemoglobin C Crystals Not Reportable 12/25/19 03:47 Schistocytes Not Reportable 12/25/19 03:47 Malaria parasites Not Reportable 12/25/19 03:47 Gregg Bodies Not Reportable 12/25/19 03:47 Hem Pathologist Commnt No 12/25/19 03:47 PT 17.0 Sec. (12.2-14.9) H 11/23/19 03:47 INR 1.36 (0.87-1.13) H 11/23/19 03:47 APTT 128.2 Sec. (24.2-36.6) H* 11/23/19 03:47 Heparin Anti-Xa Level 0.31 U.I./ml (0.3-0.7) 11/23/19 09:03 ABG pH 7.429 pH Units (7.350-7.450) 01/09/20 08:51 ABG pCO2 39.1 mm Hg 01/09/20 08:51 ABG pO2 94.3 mm Hg (80.0-90.0) H 01/09/20 08:51 ABG HCO3 25.3 mmol/L (20.0-26.0) 01/09/20 08:51 ABG O2 Saturation 97.4 % (95.0-99.0) 01/09/20 08:51 ABG O2 Content 12.9 (0.0-44) 01/09/20 08:51 ABG Base Excess 1.0 mmol/L (-2.0-3.0) 01/09/20 08:51 ABG Hemoglobin 9.5 gm/dl (12.0-16.0) L 01/09/20 08:51 ABG Carboxyhemoglobin 1.3 % (0.0-5.0) 01/09/20 08:51 ABG Methemoglobin 0.4 % (0.0-1.5) 01/09/20 08:51 Oxyhemoglobin 95.7 % (95.0-99.0) 01/09/20 08:51 FiO2 35 % 01/09/20 08:51 Sodium 137 mmol/L (137-145) 02/17/20 07:57 Potassium 4.7 mmol/L (3.6-5.0) 02/17/20 07:57 Chloride 96.9 mmol/L (98-107) L 02/17/20 07:57 Carbon Dioxide 25 mmol/L (22-30) 02/17/20 07:57 Anion Gap 20 mmol/L 02/17/20 07:57 BUN 21 mg/dL (7-17) H 02/17/20 07:57 Creatinine 0.4 mg/dL (0.7-1.2) L 02/17/20 07:57 Estimated GFR > 60 ml/min 02/17/20 07:57 BUN/Creatinine Ratio 53 % 02/17/20 07:57 Glucose 113 mg/dL (65-100) H 02/17/20 07:57 POC Glucose 171 (70-105) H 02/20/20 12:00 Lactic Acid 1.80 mmol/L (0.7-2.0) 11/25/19 05:05 Calcium 10.5 mg/dL (8.4-10.2) H 02/17/20 07:57 Ionized Calcium 4.5 mg/dL (4.8-5.6) L 11/23/19 06:32 Phosphorus 4.20 mg/dL (2.5-4.5) D 11/28/19 08:59 Magnesium 2.30 mg/dL (1.7-2.3) 11/29/19 13:41 Total Bilirubin 0.40 mg/dL (0.1-1.2) 12/13/19 07:48 AST 27 units/L (5-40) 12/13/19 07:48 ALT 26 units/L (7-56) 12/13/19 07:48 Alkaline Phosphatase 316 units/L (35-129) H 12/13/19 07:48 Ammonia 42.0 umol/L (25-60) 11/29/19 13:41 Total Creatine Kinase 139 units/L (30-135) H 11/22/19 23:27 CK-MB (CK-2) 8.3 ng/mL (0.0-4.0) H 11/22/19 23:27 CK-MB (CK-2) Rel Index 5.9 (0-4) H 11/22/19 23:27 Troponin T < 0.010 ng/mL (0.00-0.029) 11/22/19 23:27 Total Protein 6.8 g/dL (6.3-8.2) 12/13/19 07:48 Albumin 2.4 g/dL (3.9-5) L 12/13/19 07:48 Albumin/Globulin Ratio 0.5 % 12/13/19 07:48 Lipase 18 units/L (13-60) 11/23/19 00:34 Procalcitonin 1.09 ng/mL (<0.15) 11/23/19 04:53 TSH 1.010 mlU/mL (0.270-4.200) 02/12/20 07:36 Free T4 1.08 ng/dL (0.76-1.46) 02/12/20 07:36 Urine Color Yellow (Yellow) 12/16/19 Unknown Urine Turbidity Slightly-cloudy (Clear) 12/16/19 Unknown Urine pH 5.0 (5.0-7.0) 12/16/19 Unknown Ur Specific [place] 1.018 (1.003-1.030) 12/16/19 Unknown Urine Protein 30 mg/dl mg/dL (Negative) 12/16/19 Unknown Urine Glucose (UA) Neg mg/dL (Negative) 12/16/19 Unknown Urine Ketones Neg mg/dL (Negative) 12/16/19 Unknown Urine Blood Sm (Negative) 12/16/19 Unknown Urine Nitrite Neg (Negative) 12/16/19 Unknown Urine Bilirubin Neg (Negative) 12/16/19 Unknown Urine Urobilinogen < 2.0 mg/dL (<2.0) 12/16/19 Unknown Ur Leukocyte Esterase Neg (Negative) 12/16/19 Unknown Urine WBC (Auto) 6.0 /HPF (0.0-6.0) 12/16/19 Unknown Urine RBC (Auto) 9.0 /HPF (0.0-6.0) 12/16/19 Unknown U Epithel Cells (Auto) < 1.0 /HPF (0-13.0) 12/16/19 Unknown Urine Bacteria (Auto) 2+ /HPF (Negative) 11/22/19 23:17 Hyaline Casts 3 /LPF 12/16/19 Unknown Granular Casts 3 /LPF 12/16/19 Unknown Urine Mucus Few /HPF 12/16/19 Unknown Vancomycin Trough 33.8 ug/mL (5.0-20.0) H 12/21/19 08:56 Random Vancomycin 16.2 ug/mL (0-40.0) 12/24/19 04:31 Salicylates < 0.3 mg/dL (2.8-20.0) L 11/22/19 23:27 Urine Opiates Screen Presumptive negative 11/22/19 23:17 Urine Methadone Screen Presumptive negative 11/22/19 23:17 Acetaminophen < 5.0 ug/mL (10.0-30.0) L 11/22/19 23:27 Ur Barbiturates Screen Presumptive negative 11/22/19 23:17 Ur Phencyclidine Scrn Presumptive negative 11/22/19 23:17 Ur Amphetamines Screen Presumptive negative 11/22/19 23:17 U Benzodiazepines Scrn Presumptive negative 11/22/19 23:17 Urine Cocaine Screen Presumptive negative 11/22/19 23:17 U Marijuana (THC) Screen Presumptive negative 11/22/19 23:17 Drugs of Abuse Note Disclamer 11/22/19 23:17 Plasma/Serum Alcohol 0.08 % (0-0.07) H 11/22/19 23:27 Coronavirus (PCR) Negative (Negative) 02/05/20 07:50 Hepatitis A IgM Ab Non-reactive (NonReactive) 11/23/19 01:19 Hep Bs Antigen Non-reactive (Negative) 11/23/19 01:19 Hep B Core IgM Ab Non-reactive (NonReactive) 11/23/19 01:19 Hepatitis C Antibody Non-reactive (NonReactive) 11/23/19 01:19 Blood Type O POSITIVE 12/21/19 14:54 Antibody Screen Negative 12/21/19 14:54 Crossmatch See Detail 12/21/19 14:54 Microbiology: Microbiology 02/17/20 15:20 Tracheal Aspirate Sputum Culture - Final Pseudomonas Aeruginosa - Diagnostic Impressions Diagnostic Impressions: Echocardiogram 11/23/19 03:58 Transthoracic Echocardiogram Indication: Cardiac arrest BP: 131/89 HR: 115 Conclusions *The study quality is technically difficult. *Global left ventricular wall motion and contractility are within normal limits. *The estimated ejection fraction is 55-60%. *Abnormal left ventricular diastolic filling is observed, consistent with impaired relaxation. *There is no pericardial effusion. Findings Procedure Info: The study quality is technically difficult. The study was technically limited due to the patient's inability to lay in the left lateral decubitus position. Left Ventricle: The left ventricular chamber size is normal. There is no left ventricular hypertrophy. Global left ventricular wall motion and contractility are within normal limits. Global left ventricular systolic function is normal. The estimated ejection fraction is 55-60%. Abnormal left ventricular diastolic filling is observed, consistent with impaired relaxation. Left Atrium: The left atrial chamber size is normal. Aortic Valve: The aortic valve leaflets are mildly thickened. Mitral Valve: The mitral valve leaflets are mildly thickened. There is no evidence of mitral regurgitation. Tricuspid Valve: The tricuspid valve leaflets are normal. There is trace tricuspid regurgitation. The right ventricular systolic pressure is calculated at 33 mmHg. Pulmonic Valve: The pulmonic valve appears normal. Pericardium: The pericardium appears normal. There is no pericardial effusion. Aorta: The aorta appears normal. Venous: The inferior vena cava appears normal in size. Measurements Chambers 2D Name Value Normal Range IVSd (2D) 0.94 cm (0.6 - 1.1) LVPWd (2D) 0.81 cm (0.6 - 1.1) LVIDd (2D) 3.6 cm (3.7 - 5.6) LVIDs (2D) 2.27 cm (2 - 3.8) LV FS (2D) 36.93 % - EF Teichholz (2D) 67.76 % - Ao root diameter (2D) 3.03 cm (2 - 3.7) Volumes/Mass Name Value Normal Range LA ESV SP 4CH (A/L) 16.89 ml - LA ESV SP 4CH (MOD) 15.52 ml - Diastolic/Systolic Function Name Value Normal Range MV E-wave Vmax 0.55 m/sec - MV deceleration time 200.89 msec - MV A-wave Vmax 0.68 m/sec - MV E:A ratio 0.82 ratio - Aortic Valve Name Value Normal Range AV Vmax 1.1 m/sec - AV VTI 15.9 cm - AV peak gradient 4.86 mmHg - AV mean gradient 2.59 mmHg - LVOT diameter 2 cm - LVOT Vmax 1.03 m/sec - LVOT VTI 15.87 cm - LVOT peak gradient 4.24 mmHg - LVOT mean gradient 2.41 mmHg - SV LVOT 49.77 ml - JOSÉ MIGUEL (continuity Vmax) 2.93 cm2 - JOSÉ MIGUEL (continuity VTI) 3.13 cm2 - Tricuspid Valve Name Value Normal Range TR Vmax 2.74 m/sec - TR peak gradient 303 mmHg - RAP 3 mmHg - RVSP 33 mmHg - IVC diameter 1.77 cm (1.2 - 2.3) Pulmonic Valve/Qp:Qs Name Value Normal Range PV Vmax 0.77 m/sec - PV peak gradient 2.4 mmHg - PV acceleration time 114.18 msec - Echocardiogram Limited Views 12/17/19 14:53 Transthoracic Echocardiogram Indication: R/O Vegetations BP: 144/83 HR: 133 Conclusions *Global left ventricular systolic function is mildly decreased. *The estimated ejection fraction is 45-50%. *A trivial pericardial effusion is visualized. Findings Left Ventricle: The left ventricular chamber size is normal. Global left ventricular systolic function is mildly decreased. The estimated ejection fraction is 45-50%. Left Atrium: The left atrial chamber size is normal. Right Ventricle: The right ventricular cavity size is normal. Right Atrium: The right atrial cavity size is normal. Aortic Valve: The aortic valve is not well visualized. There is no evidence of aortic regurgitation. Mitral Valve: The mitral valve leaflets are mildly thickened. There is trace of mitral regurgitation. Tricuspid Valve: The tricuspid valve leaflets are mildly thickened. There is trace tricuspid regurgitation. The right ventricular systolic pressure is calculated at 29 mmHg. Pulmonic Valve: The pulmonic valve is not well visualized. There is no evidence of pulmonic regurgitation. Pericardium: A trivial pericardial effusion is visualized. Aorta: There is no dilatation of the ascending aorta. There is no dilatation of the aortic root. Venous: The inferior vena cava appears normal in size. There is a greater than 50% respiratory change in the inferior vena cava dimension. Measurements Chambers 2D Name Value Normal Range IVSd (2D) 0.83 cm (0.6 - 1.1) LVPWd (2D) 0.98 cm (0.6 - 1.1) LVIDd (2D) 3.71 cm (3.7 - 5.6) LVIDs (2D) 2.93 cm (2 - 3.8) LV FS (2D) 21.12 % - EF Teichholz (2D) 43.71 % - Ao root diameter (2D) 3.02 cm (2 - 3.7) Volumes/Mass Name Value Normal Range LA ESV SP 4CH (A/L) 36.8 ml - LA ESV SP 2CH (A/L) 45.89 ml - LA ESV BP (A/L) 42.35 ml - LA ESV BP (A/L) index 26.63 ml/m2 - LA ESV SP 4CH (MOD) 34.42 ml - LA ESV SP 2CH (MOD) 44.21 ml - LA ESV BP (MOD) 39.82 ml - LA ESV BP (MOD) index 25.05 ml/m2 - Aortic Valve Name Value Normal Range LVOT diameter 1.63 cm - Tricuspid Valve Name Value Normal Range TR Vmax 2.56 m/sec - TR peak gradient 26 mmHg - RAP 3 mmHg - RVSP 29 mmHg - IVC diameter 1.83 cm (1.2 - 2.3) [place]/IV: Voiding Method Incontinent IV Catheter Type [Forearm] Peripheral IV IV Catheter Type [Left Forearm INT / Saline Lock ] IV Catheter Type [Right Peripheral IV Antecubital] IV Catheter Type [Right Hand] Peripheral IV IV Catheter Type [Right Wrist] Peripheral IV IV Catheter Type [Left Wrist] Peripheral IV IV Catheter Type [Left Peripheral IV Antecubital] IV Catheter Type [Right INT / Saline Lock Forearm] IV Catheter Type [Left Hand] Peripheral IV Active Medications - Current Medications Current Medications: Generic Name Dose Route Start Last Admin Trade Name Freq PRN Reason Stop Dose Admin Acetaminophen 650 mg 12/06/19 10:25 02/19/20 22:00 Tylenol FEEDTUBE 650 mg Q6H PRN Administration TEMP >/=100.3 Acetylcysteine 200 mg 02/16/20 20:00 02/20/20 09:21 Mucomyst Inhalation INHALATION Not Given Q12HRT LUCHO Lipase/Protease/Amylase 1 each 11/23/19 11:[address] 10,500 Unit FEEDTUBE PRN PRN Use w/ sod bicarb for FT Bisacodyl 10 mg 02/06/20 13:57 Dulcolax MO QDAY PRN Constipation unrelieved by MOM Docusate Sodium 100 mg 02/18/20 22:00 02/20/20 11:07 Colace FEEDTUBE 100 mg BID LUCHO Administration Glycopyrrolate 2 mg 12/31/19 20:00 02/20/20 17:13 Robinul PO 2 mg TID LUCHO Administration Hydralazine HCl 10 mg 11/24/19 00:45 12/18/19 13:25 Apresoline IV 10 mg Q6H PRN Administration SBP > 160 Hydroxyzine Pamoate 25 mg 12/06/19 10:00 02/20/20 11:07 Vistaril PO 25 mg BID LUCHO Administration Lansoprazole 30 mg 11/27/19 10:00 02/20/20 11:07 Prevacid Solutab FEEDTUBE 30 mg QDAY LUCHO Administration Levalbuterol HCl 0.63 mg 02/17/20 00:00 02/20/20 16:48 Xopenex IH 0.63 mg Q8HRT LUCHO Administration Levetiracetam 500 mg 11/29/19 10:00 02/20/20 11:07 Keppra PO 500 mg BID LUCHO Administration Mirtazapine 30 mg 12/06/19 10:00 02/20/20 11:07 Remeron PO 30 mg DAILY LUCHO Administration Nicotine 21 mg 02/16/20 13:00 02/20/20 11:07 Habitrol TD 21 mg QDAY LUCHO Administration Ondansetron HCl 4 mg 12/10/19 07:53 02/05/20 22:06 Zofran IV 4 mg Q4H PRN Administration Nausea And Vomiting Polyethylene Glycol 17 gm 02/06/20 13:57 Miralax 3350 PO QDAY PRN Constipation Quetiapine Fumarate 100 mg 01/09/20 21:41 02/19/20 22:00 Seroquel FEEDTUBE 100 mg QHS LUCHO Administration Scopolamine 1 each 02/08/20 15:00 02/20/20 17:13 Transderm-Scop TD 1 each Q3D LUCHO Administration Sertraline HCl 25 mg 01/01/20 10:00 02/20/20 11:07 Zoloft PO 25 mg QDAY LUCHO Administration Simple Syrup 15 ml 11/23/19 11:50 Simple Syrup FEEDTUBE PRN PRN Hypoglycemia BG<70 Simple Syrup 30 ml 11/23/19 11:50 Simple Syrup FEEDTUBE PRN PRN Hypoglycemia Sodium Bicarbonate 325 mg 11/23/19 11:50 Sodium Bicarbonate FEEDTUBE PRN PRN For Clogged Feeding Tube Nutrition/Malnutrition Assess - Dietary Evaluation Nutrition/Malnutrition Findings: Nutrition Notes Start: 11/23/19 11:29 Freq: Status: Active Protocol: Document 02/20/20 11:56 LM (Rec: 02/20/20 12:10 LM [email or web address]) Nutrition Notes Initial or Follow up Reassessment Current Diagnosis Hypertension Other Pertinent Diagnosis Cardaic arrest, ETOH dependence, UTI Current Diet Jevity 1.2 at 60ml/hr Labs/Tests Reviewed Pertinent Medications Reviewed Height 5 ft 6 in Weight 45.6 kg [place] Body Weight (kg) 59.09 BMI 16.2 Subjective/Other Information TF running at goal. Percent of energy/protein needs met: 99%/100% Burn Absent Trauma Absent GI Symptoms None Current % PO Negligible Interpretation of Weight Loss (severe) >2% in 1 week Muscle Mass Mild Depletion (non-severe) #2 Nutrition Diagnosis Malnutrition Diagnosis Progress(for reassessment Continues documentation) #1 Nutrition Diagnosis Inadequate oral intake Diagnosis Progress(for reassessment Continues documentation) Is patient on ventilator? No Is Patient Ambulatory and/or Out of Bed No [facility] 1291.932 Kcal/Kg value to use for calculation 38 Approximate Energy Requirements Using 1733 kcal/Kg Calculation Used for Recommendations Kcal/kg Additional Notes Protein: 60-75g (1.2-1.5g/kg) Fluid: 1 ml/kcal Nutrition Intervention Change Diet Order: Continue TF Nutrition Support: Change to Jevity 1.2 at 60ml/ hr Flush 100ml q4h Kcal 1,728 Protein (gm) 80 Fluid (mL) 1,162 Goal #1 TF tolerance Goal #2 Meet at least 80% of energy and protein needs via TF Anticipated Discharge Needs: TF Follow-Up By: 02/26/20 Additional Comments F/U for TF tolerance, wt
[2020-02-20] MEDS: ACETAMINOPHEN 325 MG/10.15 ML ORAL LIQD UNIT DOSE FEEDTUBE PRN (21:44)
[2020-02-20] MEDS: QUEtiapine 100 MG TAB FEEDTUBE SCH (21:45)
[2020-02-21] MEDS: ACETYLCYSTEINE 20% 200 MG/1 ML *FOR INHALATION USE INHALATION SCH ×3 (00:41→21:55)
[2020-02-21] MEDS: LEVALBUTEROL 0.63 MG/3 ML NEBU IH SCH ×3 (00:41→15:34)
[2020-02-21] MEDS: MIRTAZAPINE 30 MG TAB PO SCH (09:45)
[2020-02-21] MEDS: GLYCOPYRROLATE 1 MG TAB PO SCH ×3 (09:45→22:38)
[2020-02-21] MEDS: SERTRALINE 50 MG TAB PO SCH (09:46)
[2020-02-21] MEDS: DOCUSATE SODIUM 100 MG/10 ML ORAL LIQD FEEDTUBE SCH ×2 (09:47→22:38)
[2020-02-21] MEDS: levETIRAcetam 500 MG/5 ML ORAL LIQD PO SCH ×2 (09:47→22:38)
[2020-02-21] MEDS: hydrOXYzine PAMOATE 25 MG CAP PO SCH ×2 (09:47→22:39)
[2020-02-21] MEDS: NICOTINE 21 MG/24 HR PATCH TD SCH (09:47)
[2020-02-21] MEDS: LANSOPRAZOLE 30 MG SOLUTAB FEEDTUBE SCH (09:50)
[2020-02-21] MEDS: HALOPERIDOL LACTATE 10 MG/5 ML ORAL LIQD FEEDTUBE PRN (12:34)
--- NOTE | 2020-02-21 13:20 | Progress Note ---
Assessment and Plan Patient awake. Patient still Confused and Agitating.Patient S/P trach. Patient is on Trach collar, FIO2 28%. O2 saturation 96%. No acute respiratory distress. Wound around trach tube. Recommend cleaning and tracheostomy care. Recommend alin quent respiratory suctioning. Patient afebrile and has mild leukocytosis. - Patient Problems (1) Acute respiratory failure Current Visit: Yes Status: Acute Qualifiers: Respiratory failure complication: hypoxia Qualified Code(s): J96.01 - Acute respiratory failure with hypoxia Plan to address problem: S/P Tracheostomy. Presently on trach collar, FIO2 28% and. O2 saturation 96%. Recommend albuterol/atrovent aerosol treatments q 6 hours. Continue Mucomist. Respiratory suctioning. Trach care. Mobility protocol. (2) Alcohol abuse Current Visit: Yes Status: Acute Plan to address problem: Management as per primary care. (3) Cardiac arrest with successful resuscitation Current Visit: Yes Status: Acute Plan to address problem: Patient successfully resucitated. Alert, awake (4) Increased ammonia level Current Visit: Yes Status: Acute Plan to address problem: Management as per primary care. (5) Seizure disorder Current Visit: Yes Status: Acute Plan to address problem: Management as per primary care and neurology. (6) HTN (hypertension) Current Visit: No Status: Acute Plan to address problem: Management as per primary care. Subjective Date of service: 02/21/20 Principal diagnosis: Ac cardiopulmonary arrest; Ac hypoxemic resp failure; Acute encephalopathy Interval history: Patient awake. Patient still Confused and Agitating.Patient S/P trach. Patient is on Trach collar, FIO2 28%. O2 saturation 96%. No acute respiratory distress. Wound around trach tube. Recommend cleaning and tracheostomy care. Recommend frequent respiratory suctioning. Patient afebrile and has mild leukocytosis. Objective Vital Signs - 12hr 02/21/20 02/21/20 02/21/20 03:47 07:47 08:25 Temperature 98.8 F 97.7 F Pulse Rate 60 73 Pulse Rate [ 104 H Anterior Bilateral Throughout] Respiratory 18 20 Rate Respiratory 18 Rate [Anterior Bilateral Throughout] Blood Pressure 119/86 120/82 O2 Sat by Pulse 91 82 L Oximetry O2 Sat by Pulse Oximetry [ Assessment] 02/21/20 02/21/20 02/21/20 08:45 08:50 08:51 Temperature Pulse Rate Pulse Rate [ Anterior Bilateral Throughout] Respiratory 20 Rate Respiratory Rate [Anterior Bilateral Throughout] Blood Pressure O2 Sat by Pulse 96 Oximetry O2 Sat by Pulse 98 Oximetry [ Assessment] 02/21/20 10:00 Temperature Pulse Rate 116 H Pulse Rate [ Anterior Bilateral Throughout] Respiratory Rate Respiratory Rate [Anterior Bilateral Throughout] Blood Pressure O2 Sat by Pulse Oximetry O2 Sat by Pulse Oximetry [ Assessment] Constitutional: alert, appears uncomfortable, other (Confused and agitating.) Eyes: non-icteric ENT: oropharynx moist, other (s/p trach) Neck: supple, no lymphadenopathy, no JVD Effort: normal Ascultation: Bilateral: diminished breath sounds, rhonchi Percussion: Bilateral: not dull Cardiovascular: regular rate and rhythm (tachycardia), other (S1,S2) Gastrointestinal: normoactive bowel sounds, soft, non-tender, non-distended Integumentary: normal Extremities: no cyanosis, no edema, pulses normal, no ischemia or petechiae Neurologic: non-focal exam, pupils equal and round, unable to assess Psychiatric: anxious, other (Agitated.) CBC and BMP: 02/17/20 07:57 02/17/20 07:57 ABG, PT/INR, D-dimer: ABG ABG pH 7.429 pH Units (7.350-7.450) 01/09/20 08:51 ABG pCO2 39.1 mm Hg 01/09/20 08:51 ABG pO2 94.3 mm Hg (80.0-90.0) H 01/09/20 08:51 ABG O2 Saturation 97.4 % (95.0-99.0) 01/09/20 08:51 PT/INR, D-dimer PT 17.0 Sec. (12.2-14.9) H 11/23/19 03:47 INR 1.36 (0.87-1.13) H 11/23/19 03:47 Abnormal lab findings: Abnormal Labs 11/22/19 11/22/19 11/22/19 23:17 23:18 23:27 WBC 21.2 H RBC 3.59 L Hgb 9.8 L Hct MCH 27 L RDW 18.6 H Plt Count 454 H Lymph % (Auto) [place] % (Auto) [place] # Baso # Seg Neutrophils % Seg Neuts % (Manual) 86.0 H Lymphocytes % (Manual) 9.0 L Monocytes % (Manual) Seg Neutrophils # Seg Neutrophils # Man 18.2 H Lymphocytes # (Manual) Monocytes # (Manual) 1.1 H Eosinophils # (Manual) Basophils # (Manual) PT INR APTT ABG pH ABG pO2 ABG HCO3 ABG O2 Saturation ABG Base Excess ABG Hemoglobin Oxyhemoglobin Sodium Potassium Chloride Carbon Dioxide BUN Creatinine Glucose POC Glucose 53 L Lactic Acid Calcium Ionized Calcium Phosphorus Magnesium Total Bilirubin AST ALT Alkaline Phosphatase Ammonia Total Creatine Kinase CK-MB (CK-2) CK-MB (CK-2) Rel Index Total Protein Albumin Urine WBC (Auto) 40.0 H Vancomycin Trough Salicylates Acetaminophen Plasma/Serum Alcohol Crossmatch 11/22/19 11/22/19 11/22/19 23:27 23:27 23:27 WBC RBC Hgb Hct MCH RDW Plt Count Lymph % (Auto) [place] % (Auto) [place] # Baso # Seg Neutrophils % Seg Neuts % (Manual) Lymphocytes % (Manual) Monocytes % (Manual) Seg Neutrophils # Seg Neutrophils # Man Lymphocytes # (Manual) Monocytes # (Manual) Eosinophils # (Manual) Basophils # (Manual) PT INR APTT ABG pH ABG pO2 ABG HCO3 ABG O2 Saturation ABG Base Excess ABG Hemoglobin Oxyhemoglobin Sodium Potassium 2.4 L* Chloride 85.1 L Carbon Dioxide 19 L BUN Creatinine 0.5 L Glucose 261 H POC Glucose Lactic Acid Calcium Ionized Calcium Phosphorus Magnesium Total Bilirubin AST 609 H ALT 152 H Alkaline Phosphatase 160 H Ammonia 117.0 H Total Creatine Kinase 139 H CK-MB (CK-2) 8.3 H CK-MB (CK-2) Rel Index 5.9 H Total Protein Albumin 3.6 L Urine WBC (Auto) Vancomycin Trough Salicylates < 0.3 L Acetaminophen Plasma/Serum Alcohol Crossmatch 11/22/19 11/22/19 11/23/19 23:27 23:27 01:10 WBC RBC Hgb Hct MCH RDW Plt Count Lymph % (Auto) [place] % (Auto) [place] # Baso # Seg Neutrophils % Seg Neuts % (Manual) Lymphocytes % (Manual) Monocytes % (Manual) Seg Neutrophils # Seg Neutrophils # Man Lymphocytes # (Manual) Monocytes # (Manual) Eosinophils # (Manual) Basophils # (Manual) PT INR APTT ABG pH 7.273 L ABG pO2 209.7 H ABG HCO3 ABG O2 Saturation 99.2 H ABG Base Excess -3.9 L ABG Hemoglobin 10.6 L Oxyhemoglobin 93.9 L Sodium Potassium Chloride Carbon Dioxide BUN Creatinine Glucose POC Glucose Lactic Acid Calcium Ionized Calcium Phosphorus Magnesium Total Bilirubin AST ALT Alkaline Phosphatase Ammonia Total Creatine Kinase CK-MB (CK-2) CK-MB (CK-2) Rel Index Total Protein Albumin Urine WBC (Auto) Vancomycin Trough Salicylates Acetaminophen < 5.0 L Plasma/Serum Alcohol 0.08 H Crossmatch 11/23/19 11/23/19 11/23/19 01:19 01:19 03:47 WBC RBC Hgb Hct MCH RDW Plt Count Lymph % (Auto) [place] % (Auto) [place] # Baso # Seg Neutrophils % Seg Neuts % (Manual) Lymphocytes % (Manual) Monocytes % (Manual) Seg Neutrophils # Seg Neutrophils # Man Lymphocytes # (Manual) Monocytes # (Manual) Eosinophils # (Manual) Basophils # (Manual) PT 16.3 H INR 1.29 H APTT ABG pH ABG pO2 ABG HCO3 ABG O2 Saturation ABG Base Excess ABG Hemoglobin Oxyhemoglobin Sodium Potassium Chloride Carbon Dioxide BUN Creatinine Glucose POC Glucose Lactic Acid 2.10 H* 5.00 H* Calcium Ionized Calcium Phosphorus Magnesium Total Bilirubin AST ALT Alkaline Phosphatase Ammonia Total Creatine Kinase CK-MB (CK-2) CK-MB (CK-2) Rel Index Total Protein Albumin Urine WBC (Auto) Vancomycin Trough Salicylates Acetaminophen Plasma/Serum Alcohol Crossmatch 11/23/19 11/23/19 11/23/19 03:47 03:47 04:53 WBC RBC Hgb 9.4 L Hct MCH RDW Plt Count Lymph % (Auto) [place] % (Auto) [place] # Baso # Seg Neutrophils % Seg Neuts % (Manual) Lymphocytes % (Manual) Monocytes % (Manual) Seg Neutrophils # Seg Neutrophils # Man Lymphocytes # (Manual) Monocytes # (Manual) Eosinophils # (Manual) Basophils # (Manual) PT 17.0 H INR 1.36 H APTT 128.2 H* ABG pH ABG pO2 ABG HCO3 ABG O2 Saturation ABG Base Excess ABG Hemoglobin Oxyhemoglobin Sodium Potassium Chloride Carbon Dioxide 18 L BUN Creatinine 0.5 L Glucose 105 H POC Glucose Lactic Acid Calcium 8.3 L Ionized Calcium Phosphorus 2.40 L Magnesium Total Bilirubin 1.30 H AST 761 H ALT 158 H Alkaline Phosphatase 143 H Ammonia Total Creatine Kinase CK-MB (CK-2) CK-MB (CK-2) Rel Index Total Protein Albumin 2.8 L Urine WBC (Auto) Vancomycin Trough Salicylates Acetaminophen Plasma/Serum Alcohol Crossmatch 11/23/19 11/23/19 11/23/19 05:12 06:32 06:32 WBC 16.8 H RBC 3.31 L Hgb 8.9 L Hct 28.7 L MCH 27 L RDW 18.6 H Plt Count Lymph % (Auto) [place] % (Auto) [place] # Baso # Seg Neutrophils % Seg Neuts % (Manual) 94.0 H Lymphocytes % (Manual) 1.0 L Monocytes % (Manual) Seg Neutrophils # Seg Neutrophils # Man 15.8 H Lymphocytes # (Manual) 0.2 L Monocytes # (Manual) Eosinophils # (Manual) Basophils # (Manual) PT INR APTT ABG pH ABG pO2 ABG HCO3 ABG O2 Saturation ABG Base Excess -3.2 L ABG Hemoglobin 9.0 L Oxyhemoglobin 93.6 L Sodium Potassium Chloride Carbon Dioxide BUN Creatinine Glucose POC Glucose Lactic Acid Calcium Ionized Calcium 4.5 L Phosphorus Magnesium Total Bilirubin AST ALT Alkaline Phosphatase Ammonia Total Creatine Kinase CK-MB (CK-2) CK-MB (CK-2) Rel Index Total Protein Albumin Urine WBC (Auto) Vancomycin Trough Salicylates Acetaminophen Plasma/Serum Alcohol Crossmatch 11/23/19 11/24/19 11/24/19 06:32 04:35 04:35 WBC RBC Hgb Hct MCH RDW Plt Count Lymph % (Auto) [place] % (Auto) [place] # Baso # Seg Neutrophils % Seg Neuts % (Manual) Lymphocytes % (Manual) Monocytes % (Manual) Seg Neutrophils # Seg Neutrophils # Man Lymphocytes # (Manual) Monocytes # (Manual) Eosinophils # (Manual) Basophils # (Manual) PT INR APTT ABG pH ABG pO2 ABG HCO3 ABG O2 Saturation ABG Base Excess ABG Hemoglobin Oxyhemoglobin Sodium Potassium Chloride Carbon Dioxide BUN Creatinine Glucose POC Glucose Lactic Acid 3.30 H* Calcium Ionized Calcium Phosphorus Magnesium 1.40 L Total Bilirubin AST ALT Alkaline Phosphatase Ammonia 98.0 H Total Creatine Kinase CK-MB (CK-2) CK-MB (CK-2) Rel Index Total Protein Albumin Urine WBC (Auto) Vancomycin Trough Salicylates Acetaminophen Plasma/Serum Alcohol Crossmatch 11/24/19 11/25/19 11/25/19 05:22 04:34 05:05 WBC 17.3 H RBC 2.88 L Hgb 7.8 L Hct 24.6 L MCH 27 L RDW 18.5 H Plt Count Lymph % (Auto) 7.7 L [place] % (Auto) 9.7 H [place] # 1.7 H Baso # Seg Neutrophils % 82.2 H Seg Neuts % (Manual) Lymphocytes % (Manual) Monocytes % (Manual) Seg Neutrophils # 14.2 H Seg Neutrophils # Man Lymphocytes # (Manual) Monocytes # (Manual) Eosinophils # (Manual) Basophils # (Manual) PT INR APTT ABG pH 7.475 H ABG pO2 ABG HCO3 29.4 H 32.3 H ABG O2 Saturation ABG Base Excess 5.4 H 6.9 H ABG Hemoglobin 9.0 L 10.6 L Oxyhemoglobin 94.3 L Sodium Potassium Chloride Carbon Dioxide BUN Creatinine Glucose POC Glucose Lactic Acid Calcium Ionized Calcium Phosphorus Magnesium Total Bilirubin AST ALT Alkaline Phosphatase Ammonia Total Creatine Kinase CK-MB (CK-2) CK-MB (CK-2) Rel Index Total Protein Albumin Urine WBC (Auto) Vancomycin Trough Salicylates Acetaminophen Plasma/Serum Alcohol Crossmatch 11/25/19 11/25/19 11/26/19 05:05 22:46 03:31 WBC RBC Hgb Hct MCH RDW Plt Count Lymph % (Auto) [place] % (Auto) [place] # Baso # Seg Neutrophils % Seg Neuts % (Manual) Lymphocytes % (Manual) Monocytes % (Manual) Seg Neutrophils # Seg Neutrophils # Man Lymphocytes # (Manual) Monocytes # (Manual) Eosinophils # (Manual) Basophils # (Manual) PT INR APTT ABG pH 7.459 H ABG pO2 ABG HCO3 34.2 H ABG O2 Saturation ABG Base Excess 9.4 H ABG Hemoglobin 7.6 L Oxyhemoglobin 94.8 L Sodium 152 H D 147 H Potassium 2.3 L* D 2.8 L* D Chloride 107.8 H Carbon Dioxide 31 H D 33 H BUN Creatinine 0.6 L 0.6 L Glucose 148 H 177 H POC Glucose Lactic Acid Calcium Ionized Calcium Phosphorus Magnesium Total Bilirubin AST 105 H ALT 71 H Alkaline Phosphatase 155 H Ammonia Total Creatine Kinase CK-MB (CK-2) CK-MB (CK-2) Rel Index Total Protein 5.2 L D Albumin 2.9 L Urine WBC (Auto) Vancomycin Trough Salicylates Acetaminophen Plasma/Serum Alcohol Crossmatch 11/26/19 11/26/19 11/27/19 08:24 08:24 04:20 WBC 12.0 H RBC 3.00 L Hgb 8.0 L 9.3 L Hct 25.9 L 29.7 L MCH 27 L RDW 18.5 H Plt Count Lymph % (Auto) [place] % (Auto) [place] # Baso # Seg Neutrophils % Seg Neuts % (Manual) 89.0 H Lymphocytes % (Manual) 4.0 L Monocytes % (Manual) Seg Neutrophils # Seg Neutrophils # Man 10.7 H Lymphocytes # (Manual) 0.5 L Monocytes # (Manual) Eosinophils # (Manual) Basophils # (Manual) PT INR APTT ABG pH ABG pO2 ABG HCO3 ABG O2 Saturation ABG Base Excess ABG Hemoglobin Oxyhemoglobin Sodium 146 H Potassium 3.4 L D Chloride Carbon Dioxide BUN Creatinine 0.5 L Glucose 165 H POC Glucose Lactic Acid Calcium Ionized Calcium Phosphorus Magnesium Total Bilirubin AST 57 H ALT Alkaline Phosphatase 166 H Ammonia Total Creatine Kinase CK-MB (CK-2) CK-MB (CK-2) Rel Index Total Protein Albumin 2.9 L Urine WBC (Auto) Vancomycin Trough Salicylates Acetaminophen Plasma/Serum Alcohol Crossmatch 11/27/19 11/27/19 11/27/19 04:28 04:28 04:42 WBC RBC Hgb Hct MCH RDW Plt Count Lymph % (Auto) [place] % (Auto) [place] # Baso # Seg Neutrophils % Seg Neuts % (Manual) Lymphocytes % (Manual) Monocytes % (Manual) Seg Neutrophils # Seg Neutrophils # Man Lymphocytes # (Manual) Monocytes # (Manual) Eosinophils # (Manual) Basophils # (Manual) PT INR APTT ABG pH 7.470 H ABG pO2 74.0 L ABG HCO3 33.8 H ABG O2 Saturation ABG Base Excess 9.1 H ABG Hemoglobin 8.7 L Oxyhemoglobin 94.7 L Sodium 146 H Potassium 2.9 L* Chloride Carbon Dioxide BUN 25 H Creatinine Glucose 213 H POC Glucose Lactic Acid Calcium Ionized Calcium Phosphorus 1.00 L Magnesium Total Bilirubin AST ALT Alkaline Phosphatase Ammonia Total Creatine Kinase CK-MB (CK-2) CK-MB (CK-2) Rel Index Total Protein Albumin Urine WBC (Auto) Vancomycin Trough Salicylates Acetaminophen Plasma/Serum Alcohol Crossmatch 11/27/19 11/27/19 11/27/19 05:37 12:20 15:46 WBC RBC Hgb Hct MCH RDW Plt Count Lymph % (Auto) [place] % (Auto) [place] # Baso # Seg Neutrophils % Seg Neuts % (Manual) Lymphocytes % (Manual) Monocytes % (Manual) Seg Neutrophils # Seg Neutrophils # Man Lymphocytes # (Manual) Monocytes # (Manual) Eosinophils # (Manual) Basophils # (Manual) PT INR APTT ABG pH ABG pO2 ABG HCO3 ABG O2 Saturation ABG Base Excess ABG Hemoglobin Oxyhemoglobin Sodium 146 H Potassium 3.5 L D Chloride Carbon Dioxide BUN 24 H Creatinine 0.6 L Glucose 187 H POC Glucose 117 H 220 H Lactic Acid Calcium Ionized Calcium Phosphorus Magnesium Total Bilirubin AST ALT Alkaline Phosphatase Ammonia Total Creatine Kinase CK-MB (CK-2) CK-MB (CK-2) Rel Index Total Protein Albumin Urine WBC (Auto) Vancomycin Trough Salicylates Acetaminophen Plasma/Serum Alcohol Crossmatch 11/27/19 11/28/19 11/28/19 17:28 05:00 05:02 WBC RBC Hgb Hct MCH RDW Plt Count Lymph % (Auto) [place] % (Auto) [place] # Baso # Seg Neutrophils % Seg Neuts % (Manual) Lymphocytes % (Manual) Monocytes % (Manual) Seg Neutrophils # Seg Neutrophils # Man Lymphocytes # (Manual) Monocytes # (Manual) Eosinophils # (Manual) Basophils # (Manual) PT INR APTT ABG pH ABG pO2 72.4 L ABG HCO3 33.6 H ABG O2 Saturation 94.1 L ABG Base Excess 7.3 H ABG Hemoglobin Oxyhemoglobin 91.8 L Sodium 146 H Potassium 3.3 L Chloride Carbon Dioxide BUN 25 H Creatinine 0.6 L Glucose 176 H POC Glucose 198 H Lactic Acid Calcium Ionized Calcium Phosphorus Magnesium Total Bilirubin AST ALT Alkaline Phosphatase Ammonia Total Creatine Kinase CK-MB (CK-2) CK-MB (CK-2) Rel Index Total Protein Albumin Urine WBC (Auto) Vancomycin Trough Salicylates Acetaminophen Plasma/Serum Alcohol Crossmatch 11/28/19 11/28/19 11/29/19 05:02 18:55 10:43 WBC 15.2 H 19.0 H RBC 3.06 L 3.01 L Hgb 8.3 L 8.3 L Hct 27.0 L 26.4 L MCH 27 L RDW 19.0 H 19.7 H Plt Count 479 H 611 H Lymph % (Auto) [place] % (Auto) [place] # Baso # Seg Neutrophils % Seg Neuts % (Manual) 92.0 H Lymphocytes % (Manual) 2.0 L Monocytes % (Manual) Seg Neutrophils # Seg Neutrophils # Man 14.0 H Lymphocytes # (Manual) 0.3 L Monocytes # (Manual) Eosinophils # (Manual) Basophils # (Manual) PT INR APTT ABG pH ABG pO2 ABG HCO3 ABG O2 Saturation ABG Base Excess ABG Hemoglobin Oxyhemoglobin Sodium Potassium Chloride Carbon Dioxide BUN Creatinine Glucose POC Glucose 138 H Lactic Acid Calcium Ionized Calcium Phosphorus Magnesium Total Bilirubin AST ALT Alkaline Phosphatase Ammonia Total Creatine Kinase CK-MB (CK-2) CK-MB (CK-2) Rel Index Total Protein Albumin Urine WBC (Auto) Vancomycin Trough Salicylates Acetaminophen Plasma/Serum Alcohol Crossmatch 11/29/19 11/29/19 11/29/19 10:43 12:27 19:25 WBC RBC Hgb Hct MCH RDW Plt Count Lymph % (Auto) [place] % (Auto) [place] # Baso # Seg Neutrophils % Seg Neuts % (Manual) Lymphocytes % (Manual) Monocytes % (Manual) Seg Neutrophils # Seg Neutrophils # Man Lymphocytes # (Manual) Monocytes # (Manual) Eosinophils # (Manual) Basophils # (Manual) PT INR APTT ABG pH ABG pO2 ABG HCO3 ABG O2 Saturation ABG Base Excess ABG Hemoglobin Oxyhemoglobin Sodium Potassium 2.8 L* Chloride Carbon Dioxide BUN 20 H Creatinine 0.5 L Glucose 121 H POC Glucose 128 H 120 H Lactic Acid Calcium Ionized Calcium Phosphorus Magnesium Total Bilirubin AST ALT Alkaline Phosphatase Ammonia Total Creatine Kinase CK-MB (CK-2) CK-MB (CK-2) Rel Index Total Protein Albumin Urine WBC (Auto) Vancomycin Trough Salicylates Acetaminophen Plasma/Serum Alcohol Crossmatch 11/29/19 11/30/19 11/30/19 23:46 04:10 05:02 WBC RBC Hgb Hct MCH RDW Plt Count Lymph % (Auto) [place] % (Auto) [place] # Baso # Seg Neutrophils % Seg Neuts % (Manual) Lymphocytes % (Manual) Monocytes % (Manual) Seg Neutrophils # Seg Neutrophils # Man Lymphocytes # (Manual) Monocytes # (Manual) Eosinophils # (Manual) Basophils # (Manual) PT INR APTT ABG pH ABG pO2 76.3 L ABG HCO3 32.5 H ABG O2 Saturation ABG Base Excess 6.9 H ABG Hemoglobin 8.0 L Oxyhemoglobin 92.6 L Sodium Potassium Chloride Carbon Dioxide BUN Creatinine Glucose POC Glucose 116 H 128 H Lactic Acid Calcium Ionized Calcium Phosphorus Magnesium Total Bilirubin AST ALT Alkaline Phosphatase Ammonia Total Creatine Kinase CK-MB (CK-2) CK-MB (CK-2) Rel Index Total Protein Albumin Urine WBC (Auto) Vancomycin Trough Salicylates Acetaminophen Plasma/Serum Alcohol Crossmatch 11/30/19 11/30/19 11/30/19 05:25 05:25 12:59 WBC 18.4 H RBC 3.10 L Hgb 8.5 L Hct 27.5 L MCH 27 L RDW 20.9 H Plt Count 691 H Lymph % (Auto) 7.1 L [place] % (Auto) 7.7 H [place] # 1.4 H Baso # Seg Neutrophils % 83.4 H Seg Neuts % (Manual) Lymphocytes % (Manual) Monocytes % (Manual) Seg Neutrophils # 15.4 H Seg Neutrophils # Man Lymphocytes # (Manual) Monocytes # (Manual) Eosinophils # (Manual) Basophils # (Manual) PT INR APTT ABG pH ABG pO2 ABG HCO3 ABG O2 Saturation ABG Base Excess ABG Hemoglobin Oxyhemoglobin Sodium 146 H Potassium Chloride 107.2 H Carbon Dioxide BUN Creatinine 0.5 L Glucose 132 H POC Glucose 124 H Lactic Acid Calcium Ionized Calcium Phosphorus Magnesium Total Bilirubin AST 246 H ALT 274 H Alkaline Phosphatase 203 H Ammonia Total Creatine Kinase CK-MB (CK-2) CK-MB (CK-2) Rel Index Total Protein 5.4 L Albumin 2.9 L Urine WBC (Auto) Vancomycin Trough Salicylates Acetaminophen Plasma/Serum Alcohol Crossmatch 11/30/19 12/01/19 12/01/19 17:53 00:05 05:10 WBC RBC Hgb Hct MCH RDW Plt Count Lymph % (Auto) [place] % (Auto) [place] # Baso # Seg Neutrophils % Seg Neuts % (Manual) Lymphocytes % (Manual) Monocytes % (Manual) Seg Neutrophils # Seg Neutrophils # Man Lymphocytes # (Manual) Monocytes # (Manual) Eosinophils # (Manual) Basophils # (Manual) PT INR APTT ABG pH ABG pO2 ABG HCO3 ABG O2 Saturation ABG Base Excess ABG Hemoglobin Oxyhemoglobin Sodium Potassium Chloride Carbon Dioxide BUN Creatinine Glucose POC Glucose 113 H 143 H 145 H Lactic Acid Calcium Ionized Calcium Phosphorus Magnesium Total Bilirubin AST ALT Alkaline Phosphatase Ammonia Total Creatine Kinase CK-MB (CK-2) CK-MB (CK-2) Rel Index Total Protein Albumin Urine WBC (Auto) Vancomycin Trough Salicylates Acetaminophen Plasma/Serum Alcohol Crossmatch 12/01/19 12/01/19 12/01/19 05:33 08:23 08:23 WBC 22.7 H RBC 2.88 L Hgb 7.9 L Hct 25.2 L MCH 27 L RDW 21.0 H Plt Count 732 H Lymph % (Auto) [place] % (Auto) [place] # Baso # Seg Neutrophils % Seg Neuts % (Manual) 91.0 H Lymphocytes % (Manual) 3.0 L Monocytes % (Manual) Seg Neutrophils # Seg Neutrophils # Man 20.7 H Lymphocytes # (Manual) 0.7 L Monocytes # (Manual) 1.1 H Eosinophils # (Manual) Basophils # (Manual) PT INR APTT ABG pH ABG pO2 68.6 L ABG HCO3 34.1 H ABG O2 Saturation ABG Base Excess 9.0 H ABG Hemoglobin 6.5 L Oxyhemoglobin 94.7 L Sodium Potassium Chloride Carbon Dioxide BUN Creatinine 0.5 L Glucose 125 H POC Glucose Lactic Acid Calcium Ionized Calcium Phosphorus Magnesium Total Bilirubin AST ALT Alkaline Phosphatase Ammonia Total Creatine Kinase CK-MB (CK-2) CK-MB (CK-2) Rel Index Total Protein Albumin Urine WBC (Auto) Vancomycin Trough Salicylates Acetaminophen Plasma/Serum Alcohol Crossmatch 12/01/19 12/01/19 12/01/19 13:21 17:54 20:59 WBC RBC Hgb Hct MCH RDW Plt Count Lymph % (Auto) [place] % (Auto) [place] # Baso # Seg Neutrophils % Seg Neuts % (Manual) Lymphocytes % (Manual) Monocytes % (Manual) Seg Neutrophils # Seg Neutrophils # Man Lymphocytes # (Manual) Monocytes # (Manual) Eosinophils # (Manual) Basophils # (Manual) PT INR APTT ABG pH ABG pO2 78.3 L ABG HCO3 33.8 H ABG O2 Saturation 94.9 L ABG Base Excess 7.9 H ABG Hemoglobin 11.5 L Oxyhemoglobin 92.3 L Sodium Potassium Chloride Carbon Dioxide BUN Creatinine Glucose POC Glucose 111 H 115 H Lactic Acid Calcium Ionized Calcium Phosphorus Magnesium Total Bilirubin AST ALT Alkaline Phosphatase Ammonia Total Creatine Kinase CK-MB (CK-2) CK-MB (CK-2) Rel Index Total Protein Albumin Urine WBC (Auto) Vancomycin Trough Salicylates Acetaminophen Plasma/Serum Alcohol Crossmatch 12/02/19 12/03/19 12/04/19 12:55 20:00 04:26 WBC 15.2 H RBC 2.69 L Hgb 7.4 L Hct 23.6 L MCH 27 L RDW 19.9 H Plt Count 838 H Lymph % (Auto) [place] % (Auto) [place] # Baso # Seg Neutrophils % Seg Neuts % (Manual) Lymphocytes % (Manual) Monocytes % (Manual) Seg Neutrophils # Seg Neutrophils # Man Lymphocytes # (Manual) Monocytes # (Manual) Eosinophils # (Manual) Basophils # (Manual) PT INR APTT ABG pH ABG pO2 68.3 L ABG HCO3 33.5 H ABG O2 Saturation 93.5 L ABG Base Excess 8.4 H ABG Hemoglobin 7.3 L Oxyhemoglobin 90.9 L Sodium Potassium Chloride Carbon Dioxide BUN Creatinine Glucose POC Glucose 107 H Lactic Acid Calcium Ionized Calcium Phosphorus Magnesium Total Bilirubin AST ALT Alkaline Phosphatase Ammonia Total Creatine Kinase CK-MB (CK-2) CK-MB (CK-2) Rel Index Total Protein Albumin Urine WBC (Auto) Vancomycin Trough Salicylates Acetaminophen Plasma/Serum Alcohol Crossmatch 12/04/19 12/04/19 12/04/19 04:26 07:45 12:02 WBC 15.9 H RBC 2.88 L Hgb 7.9 L Hct 25.1 L MCH RDW 20.4 H Plt Count 839 H Lymph % (Auto) 11.3 L [place] % (Auto) 15.2 H [place] # 2.4 H Baso # Seg Neutrophils % 72.4 H Seg Neuts % (Manual) Lymphocytes % (Manual) Monocytes % (Manual) Seg Neutrophils # 11.5 H Seg Neutrophils # Man Lymphocytes # (Manual) Monocytes # (Manual) Eosinophils # (Manual) Basophils # (Manual) PT INR APTT ABG pH ABG pO2 ABG HCO3 ABG O2 Saturation ABG Base Excess ABG Hemoglobin Oxyhemoglobin Sodium Potassium Chloride 96.5 L Carbon Dioxide BUN 21 H Creatinine 0.6 L Glucose 107 H POC Glucose 138 H Lactic Acid Calcium Ionized Calcium Phosphorus Magnesium Total Bilirubin AST ALT Alkaline Phosphatase Ammonia Total Creatine Kinase CK-MB (CK-2) CK-MB (CK-2) Rel Index Total Protein Albumin Urine WBC (Auto) Vancomycin Trough Salicylates Acetaminophen Plasma/Serum Alcohol Crossmatch 12/04/19 12/05/19 12/05/19 18:16 11:55 18:36 WBC RBC Hgb Hct MCH RDW Plt Count Lymph % (Auto) [place] % (Auto) [place] # Baso # Seg Neutrophils % Seg Neuts % (Manual) Lymphocytes % (Manual) Monocytes % (Manual) Seg Neutrophils # Seg Neutrophils # Man Lymphocytes # (Manual) Monocytes # (Manual) Eosinophils # (Manual) Basophils # (Manual) PT INR APTT ABG pH ABG pO2 ABG HCO3 ABG O2 Saturation ABG Base Excess ABG Hemoglobin Oxyhemoglobin Sodium Potassium Chloride Carbon Dioxide BUN Creatinine Glucose POC Glucose 135 H 125 H 135 H Lactic Acid Calcium Ionized Calcium Phosphorus Magnesium Total Bilirubin AST ALT Alkaline Phosphatase Ammonia Total Creatine Kinase CK-MB (CK-2) CK-MB (CK-2) Rel Index Total Protein Albumin Urine WBC (Auto) Vancomycin Trough Salicylates Acetaminophen Plasma/Serum Alcohol Crossmatch 12/05/19 12/06/19 12/06/19 23:30 04:14 05:43 WBC RBC Hgb Hct MCH RDW Plt Count Lymph % (Auto) [place] % (Auto) [place] # Baso # Seg Neutrophils % Seg Neuts % (Manual) Lymphocytes % (Manual) Monocytes % (Manual) Seg Neutrophils # Seg Neutrophils # Man Lymphocytes # (Manual) Monocytes # (Manual) Eosinophils # (Manual) Basophils # (Manual) PT INR APTT ABG pH ABG pO2 ABG HCO3 ABG O2 Saturation ABG Base Excess ABG Hemoglobin Oxyhemoglobin Sodium Potassium 5.6 H Chloride 95.0 L Carbon Dioxide BUN 48 H Creatinine 1.3 H D Glucose POC Glucose 126 H 121 H Lactic Acid Calcium Ionized Calcium Phosphorus Magnesium Total Bilirubin AST 89 H ALT 98 H Alkaline Phosphatase 476 H Ammonia Total Creatine Kinase CK-MB (CK-2) CK-MB (CK-2) Rel Index Total Protein Albumin 2.8 L Urine WBC (Auto) Vancomycin Trough Salicylates Acetaminophen Plasma/Serum Alcohol Crossmatch 12/06/19 12/06/19 12/07/19 10:39 14:34 00:19 WBC 17.3 H RBC 2.60 L Hgb 7.1 L Hct 22.7 L MCH 27 L RDW 20.1 H Plt Count 832 H Lymph % (Auto) [place] % (Auto) [place] # Baso # Seg Neutrophils % Seg Neuts % (Manual) Lymphocytes % (Manual) Monocytes % (Manual) Seg Neutrophils # Seg Neutrophils # Man Lymphocytes # (Manual) Monocytes # (Manual) Eosinophils # (Manual) Basophils # (Manual) PT INR APTT ABG pH ABG pO2 ABG HCO3 ABG O2 Saturation ABG Base Excess ABG Hemoglobin Oxyhemoglobin Sodium Potassium Chloride Carbon Dioxide BUN Creatinine Glucose POC Glucose 128 H 136 H Lactic Acid Calcium Ionized Calcium Phosphorus Magnesium Total Bilirubin AST ALT Alkaline Phosphatase Ammonia Total Creatine Kinase CK-MB (CK-2) CK-MB (CK-2) Rel Index Total Protein Albumin Urine WBC (Auto) Vancomycin Trough Salicylates Acetaminophen Plasma/Serum Alcohol Crossmatch 12/07/19 12/07/19 12/07/19 03:44 03:44 05:53 WBC 16.2 H RBC 2.56 L Hgb 7.1 L Hct 22.3 L MCH RDW 19.4 H Plt Count 782 H Lymph % (Auto) [place] % (Auto) [place] # Baso # Seg Neutrophils % Seg Neuts % (Manual) Lymphocytes % (Manual) Monocytes % (Manual) Seg Neutrophils # Seg Neutrophils # Man Lymphocytes # (Manual) Monocytes # (Manual) Eosinophils # (Manual) Basophils # (Manual) PT INR APTT ABG pH ABG pO2 ABG HCO3 ABG O2 Saturation ABG Base Excess ABG Hemoglobin Oxyhemoglobin Sodium Potassium Chloride 95.6 L Carbon Dioxide BUN 56 H Creatinine 1.4 H Glucose 120 H POC Glucose 128 H Lactic Acid Calcium 10.3 H Ionized Calcium Phosphorus Magnesium Total Bilirubin AST ALT Alkaline Phosphatase Ammonia Total Creatine Kinase CK-MB (CK-2) CK-MB (CK-2) Rel Index Total Protein Albumin Urine WBC (Auto) Vancomycin Trough Salicylates Acetaminophen Plasma/Serum Alcohol Crossmatch 12/07/19 12/07/19 12/08/19 12:54 23:47 00:20 WBC RBC Hgb Hct MCH RDW Plt Count Lymph % (Auto) [place] % (Auto) [place] # Baso # Seg Neutrophils % Seg Neuts % (Manual) Lymphocytes % (Manual) Monocytes % (Manual) Seg Neutrophils # Seg Neutrophils # Man Lymphocytes # (Manual) Monocytes # (Manual) Eosinophils # (Manual) Basophils # (Manual) PT INR APTT ABG pH ABG pO2 ABG HCO3 ABG O2 Saturation ABG Base Excess ABG Hemoglobin Oxyhemoglobin Sodium Potassium Chloride Carbon Dioxide BUN Creatinine Glucose POC Glucose 128 H 130 H 124 H Lactic Acid Calcium Ionized Calcium Phosphorus Magnesium Total Bilirubin AST ALT Alkaline Phosphatase Ammonia Total Creatine Kinase CK-MB (CK-2) CK-MB (CK-2) Rel Index Total Protein Albumin Urine WBC (Auto) Vancomycin Trough Salicylates Acetaminophen Plasma/Serum Alcohol Crossmatch 12/08/19 12/08/19 12/08/19 06:38 12:04 18:26 WBC RBC Hgb Hct MCH RDW Plt Count Lymph % (Auto) [place] % (Auto) [place] # Baso # Seg Neutrophils % Seg Neuts % (Manual) Lymphocytes % (Manual) Monocytes % (Manual) Seg Neutrophils # Seg Neutrophils # Man Lymphocytes # (Manual) Monocytes # (Manual) Eosinophils # (Manual) Basophils # (Manual) PT INR APTT ABG pH ABG pO2 ABG HCO3 ABG O2 Saturation ABG Base Excess ABG Hemoglobin Oxyhemoglobin Sodium Potassium Chloride Carbon Dioxide BUN Creatinine Glucose POC Glucose 137 H 129 H 150 H Lactic Acid Calcium Ionized Calcium Phosphorus Magnesium Total Bilirubin AST ALT Alkaline Phosphatase Ammonia Total Creatine Kinase CK-MB (CK-2) CK-MB (CK-2) Rel Index Total Protein Albumin Urine WBC (Auto) Vancomycin Trough Salicylates Acetaminophen Plasma/Serum Alcohol Crossmatch 12/09/19 12/09/19 12/09/19 00:56 05:34 06:13 WBC RBC Hgb Hct MCH RDW Plt Count Lymph % (Auto) [place] % (Auto) [place] # Baso # Seg Neutrophils % Seg Neuts % (Manual) Lymphocytes % (Manual) Monocytes % (Manual) Seg Neutrophils # Seg Neutrophils # Man Lymphocytes # (Manual) Monocytes # (Manual) Eosinophils # (Manual) Basophils # (Manual) PT INR APTT ABG pH ABG pO2 ABG HCO3 ABG O2 Saturation ABG Base Excess ABG Hemoglobin Oxyhemoglobin Sodium 146 H Potassium Chloride Carbon Dioxide BUN 66 H Creatinine 1.9 H Glucose 116 H POC Glucose 130 H 130 H Lactic Acid Calcium Ionized Calcium Phosphorus Magnesium Total Bilirubin AST ALT Alkaline Phosphatase Ammonia Total Creatine Kinase CK-MB (CK-2) CK-MB (CK-2) Rel Index Total Protein Albumin Urine WBC (Auto) Vancomycin Trough Salicylates Acetaminophen Plasma/Serum Alcohol Crossmatch 12/09/19 12/09/19 12/10/19 11:52 17:50 00:14 WBC RBC Hgb Hct MCH RDW Plt Count Lymph % (Auto) [place] % (Auto) [place] # Baso # Seg Neutrophils % Seg Neuts % (Manual) Lymphocytes % (Manual) Monocytes % (Manual) Seg Neutrophils # Seg Neutrophils # Man Lymphocytes # (Manual) Monocytes # (Manual) Eosinophils # (Manual) Basophils # (Manual) PT INR APTT ABG pH ABG pO2 ABG HCO3 ABG O2 Saturation ABG Base Excess ABG Hemoglobin Oxyhemoglobin Sodium Potassium Chloride Carbon Dioxide BUN Creatinine Glucose POC Glucose 135 H 120 H 116 H Lactic Acid Calcium Ionized Calcium Phosphorus Magnesium Total Bilirubin AST ALT Alkaline Phosphatase Ammonia Total Creatine Kinase CK-MB (CK-2) CK-MB (CK-2) Rel Index Total Protein Albumin Urine WBC (Auto) Vancomycin Trough Salicylates Acetaminophen Plasma/Serum Alcohol Crossmatch 12/10/19 12/10/19 12/10/19 05:38 11:38 17:34 WBC RBC Hgb Hct MCH RDW Plt Count Lymph % (Auto) [place] % (Auto) [place] # Baso # Seg Neutrophils % Seg Neuts % (Manual) Lymphocytes % (Manual) Monocytes % (Manual) Seg Neutrophils # Seg Neutrophils # Man Lymphocytes # (Manual) Monocytes # (Manual) Eosinophils # (Manual) Basophils # (Manual) PT INR APTT ABG pH ABG pO2 ABG HCO3 ABG O2 Saturation ABG Base Excess ABG Hemoglobin Oxyhemoglobin Sodium Potassium Chloride Carbon Dioxide BUN Creatinine Glucose POC Glucose 115 H 112 H 130 H Lactic Acid Calcium Ionized Calcium Phosphorus Magnesium Total Bilirubin AST ALT Alkaline Phosphatase Ammonia Total Creatine Kinase CK-MB (CK-2) CK-MB (CK-2) Rel Index Total Protein Albumin Urine WBC (Auto) Vancomycin Trough Salicylates Acetaminophen Plasma/Serum Alcohol Crossmatch 12/11/19 12/11/19 12/11/19 00:20 05:31 12:22 WBC RBC Hgb Hct MCH RDW Plt Count Lymph % (Auto) [place] % (Auto) [place] # Baso # Seg Neutrophils % Seg Neuts % (Manual) Lymphocytes % (Manual) Monocytes % (Manual) Seg Neutrophils # Seg Neutrophils # Man Lymphocytes # (Manual) Monocytes # (Manual) Eosinophils # (Manual) Basophils # (Manual) PT INR APTT ABG pH ABG pO2 ABG HCO3 ABG O2 Saturation ABG Base Excess ABG Hemoglobin Oxyhemoglobin Sodium Potassium Chloride Carbon Dioxide BUN Creatinine Glucose POC Glucose 124 H 132 H 128 H Lactic Acid Calcium Ionized Calcium Phosphorus Magnesium Total Bilirubin AST ALT Alkaline Phosphatase Ammonia Total Creatine Kinase CK-MB (CK-2) CK-MB (CK-2) Rel Index Total Protein Albumin Urine WBC (Auto) Vancomycin Trough Salicylates Acetaminophen Plasma/Serum Alcohol Crossmatch 12/11/19 12/11/19 12/12/19 18:04 23:42 03:51 WBC RBC Hgb Hct MCH RDW Plt Count Lymph % (Auto) [place] % (Auto) [place] # Baso # Seg Neutrophils % Seg Neuts % (Manual) Lymphocytes % (Manual) Monocytes % (Manual) Seg Neutrophils # Seg Neutrophils # Man Lymphocytes # (Manual) Monocytes # (Manual) Eosinophils # (Manual) Basophils # (Manual) PT INR APTT ABG pH ABG pO2 ABG HCO3 ABG O2 Saturation ABG Base Excess ABG Hemoglobin Oxyhemoglobin Sodium 149 H Potassium Chloride Carbon Dioxide 20 L D BUN 77 H Creatinine 2.8 H Glucose POC Glucose 133 H 154 H Lactic Acid Calcium Ionized Calcium Phosphorus Magnesium Total Bilirubin AST ALT Alkaline Phosphatase Ammonia Total Creatine Kinase CK-MB (CK-2) CK-MB (CK-2) Rel Index Total Protein Albumin Urine WBC (Auto) Vancomycin Trough Salicylates Acetaminophen Plasma/Serum Alcohol Crossmatch 12/12/19 12/12/19 12/12/19 05:18 05:26 10:30 WBC 18.0 H RBC 2.51 L Hgb 6.8 L Hct 22.0 L MCH 27 L RDW 19.9 H Plt Count 582 H Lymph % (Auto) [place] % (Auto) [place] # Baso # Seg Neutrophils % Seg Neuts % (Manual) Lymphocytes % (Manual) Monocytes % (Manual) Seg Neutrophils # Seg Neutrophils # Man Lymphocytes # (Manual) Monocytes # (Manual) Eosinophils # (Manual) Basophils # (Manual) PT INR APTT ABG pH ABG pO2 ABG HCO3 ABG O2 Saturation ABG Base Excess ABG Hemoglobin Oxyhemoglobin Sodium Potassium Chloride Carbon Dioxide BUN Creatinine Glucose POC Glucose 135 H Lactic Acid Calcium Ionized Calcium Phosphorus Magnesium Total Bilirubin AST ALT Alkaline Phosphatase Ammonia Total Creatine Kinase CK-MB (CK-2) CK-MB (CK-2) Rel Index Total Protein Albumin Urine WBC (Auto) Vancomycin Trough Salicylates Acetaminophen Plasma/Serum Alcohol Crossmatch See Detail 12/12/19 12/12/19 12/12/19 11:44 18:10 23:21 WBC RBC Hgb Hct MCH RDW Plt Count Lymph % (Auto) [place] % (Auto) [place] # Baso # Seg Neutrophils % Seg Neuts % (Manual) Lymphocytes % (Manual) Monocytes % (Manual) Seg Neutrophils # Seg Neutrophils # Man Lymphocytes # (Manual) Monocytes # (Manual) Eosinophils # (Manual) Basophils # (Manual) PT INR APTT ABG pH ABG pO2 ABG HCO3 ABG O2 Saturation ABG Base Excess ABG Hemoglobin Oxyhemoglobin Sodium Potassium Chloride Carbon Dioxide BUN Creatinine Glucose POC Glucose 108 H 107 H 126 H Lactic Acid Calcium Ionized Calcium Phosphorus Magnesium Total Bilirubin AST ALT Alkaline Phosphatase Ammonia Total Creatine Kinase CK-MB (CK-2) CK-MB (CK-2) Rel Index Total Protein Albumin Urine WBC (Auto) Vancomycin Trough Salicylates Acetaminophen Plasma/Serum Alcohol Crossmatch 12/13/19 12/13/19 12/13/19 05:41 07:48 07:48 WBC 38.3 H RBC 2.37 L Hgb 6.3 L Hct 20.9 L MCH 27 L RDW 20.2 H Plt Count 546 H Lymph % (Auto) [place] % (Auto) [place] # Baso # Seg Neutrophils % Seg Neuts % (Manual) 93.0 H Lymphocytes % (Manual) 1.0 L Monocytes % (Manual) Seg Neutrophils # Seg Neutrophils # Man 35.6 H Lymphocytes # (Manual) 0.4 L Monocytes # (Manual) Eosinophils # (Manual) Basophils # (Manual) 0.4 H PT INR APTT ABG pH ABG pO2 ABG HCO3 ABG O2 Saturation ABG Base Excess ABG Hemoglobin Oxyhemoglobin Sodium 152 H Potassium 3.1 L D Chloride 111.9 H Carbon Dioxide 21 L BUN 53 H Creatinine 1.9 H Glucose 141 H POC Glucose 128 H Lactic Acid Calcium Ionized Calcium Phosphorus Magnesium Total Bilirubin AST ALT Alkaline Phosphatase 316 H Ammonia Total Creatine Kinase CK-MB (CK-2) CK-MB (CK-2) Rel Index Total Protein Albumin 2.4 L Urine WBC (Auto) Vancomycin Trough Salicylates Acetaminophen Plasma/Serum Alcohol Crossmatch 12/13/19 12/13/19 12/14/19 18:17 23:19 05:36 WBC RBC Hgb Hct MCH RDW Plt Count Lymph % (Auto) [place] % (Auto) [place] # Baso # Seg Neutrophils % Seg Neuts % (Manual) Lymphocytes % (Manual) Monocytes % (Manual) Seg Neutrophils # Seg Neutrophils # Man Lymphocytes # (Manual) Monocytes # (Manual) Eosinophils # (Manual) Basophils # (Manual) PT INR APTT ABG pH ABG pO2 ABG HCO3 ABG O2 Saturation ABG Base Excess ABG Hemoglobin Oxyhemoglobin Sodium Potassium Chloride Carbon Dioxide BUN Creatinine Glucose POC Glucose 141 H 158 H 182 H Lactic Acid Calcium Ionized Calcium Phosphorus Magnesium Total Bilirubin AST ALT Alkaline Phosphatase Ammonia Total Creatine Kinase CK-MB (CK-2) CK-MB (CK-2) Rel Index Total Protein Albumin Urine WBC (Auto) Vancomycin Trough Salicylates Acetaminophen Plasma/Serum Alcohol Crossmatch 12/14/19 12/14/19 12/14/19 08:48 08:48 10:31 WBC 33.3 H RBC 2.70 L Hgb 7.9 L 8.0 L Hct 25.3 L 24.0 L MCH RDW 19.2 H Plt Count 476 H Lymph % (Auto) [place] % (Auto) [place] # Baso # Seg Neutrophils % Seg Neuts % (Manual) Lymphocytes % (Manual) Monocytes % (Manual) Seg Neutrophils # Seg Neutrophils # Man Lymphocytes # (Manual) Monocytes # (Manual) Eosinophils # (Manual) Basophils # (Manual) PT INR APTT ABG pH ABG pO2 ABG HCO3 ABG O2 Saturation ABG Base Excess ABG Hemoglobin Oxyhemoglobin Sodium 153 H Potassium 2.5 L* Chloride 114.9 H Carbon Dioxide 20 L BUN 38 H Creatinine 1.4 H Glucose 177 H POC Glucose Lactic Acid Calcium Ionized Calcium Phosphorus Magnesium Total Bilirubin AST ALT Alkaline Phosphatase Ammonia Total Creatine Kinase CK-MB (CK-2) CK-MB (CK-2) Rel Index Total Protein Albumin Urine WBC (Auto) Vancomycin Trough Salicylates Acetaminophen Plasma/Serum Alcohol Crossmatch 12/14/19 12/14/19 12/14/19 12:57 16:15 17:50 WBC RBC Hgb Hct MCH RDW Plt Count Lymph % (Auto) [place] % (Auto) [place] # Baso # Seg Neutrophils % Seg Neuts % (Manual) Lymphocytes % (Manual) Monocytes % (Manual) Seg Neutrophils # Seg Neutrophils # Man Lymphocytes # (Manual) Monocytes # (Manual) Eosinophils # (Manual) Basophils # (Manual) PT INR APTT ABG pH ABG pO2 73.6 L ABG HCO3 ABG O2 Saturation ABG Base Excess ABG Hemoglobin 7.6 L Oxyhemoglobin 94.0 L Sodium Potassium Chloride Carbon Dioxide BUN Creatinine Glucose POC Glucose 174 H 150 H Lactic Acid Calcium Ionized Calcium Phosphorus Magnesium Total Bilirubin AST ALT Alkaline Phosphatase Ammonia Total Creatine Kinase CK-MB (CK-2) CK-MB (CK-2) Rel Index Total Protein Albumin Urine WBC (Auto) Vancomycin Trough Salicylates Acetaminophen Plasma/Serum Alcohol Crossmatch 12/15/19 12/15/19 12/15/19 00:28 05:27 07:23 WBC 30.0 H RBC 3.11 L Hgb 8.6 L Hct 27.7 L MCH RDW 20.0 H Plt Count 473 H Lymph % (Auto) [place] % (Auto) [place] # Baso # Seg Neutrophils % Seg Neuts % (Manual) Lymphocytes % (Manual) Monocytes % (Manual) Seg Neutrophils # Seg Neutrophils # Man Lymphocytes # (Manual) Monocytes # (Manual) Eosinophils # (Manual) Basophils # (Manual) PT INR APTT ABG pH ABG pO2 ABG HCO3 ABG O2 Saturation ABG Base Excess ABG Hemoglobin Oxyhemoglobin Sodium Potassium Chloride Carbon Dioxide BUN Creatinine Glucose POC Glucose 167 H 148 H Lactic Acid Calcium Ionized Calcium Phosphorus Magnesium Total Bilirubin AST ALT Alkaline Phosphatase Ammonia Total Creatine Kinase CK-MB (CK-2) CK-MB (CK-2) Rel Index Total Protein Albumin Urine WBC (Auto) Vancomycin Trough Salicylates Acetaminophen Plasma/Serum Alcohol Crossmatch 12/15/19 12/15/19 12/15/19 07:23 12:21 17:41 WBC RBC Hgb Hct MCH RDW Plt Count Lymph % (Auto) [place] % (Auto) [place] # Baso # Seg Neutrophils % Seg Neuts % (Manual) Lymphocytes % (Manual) Monocytes % (Manual) Seg Neutrophils # Seg Neutrophils # Man Lymphocytes # (Manual) Monocytes # (Manual) Eosinophils # (Manual) Basophils # (Manual) PT INR APTT ABG pH ABG pO2 ABG HCO3 ABG O2 Saturation ABG Base Excess ABG Hemoglobin Oxyhemoglobin Sodium 147 H Potassium 3.5 L D Chloride 111.2 H Carbon Dioxide 19 L BUN 29 H Creatinine Glucose 126 H POC Glucose 154 H 144 H Lactic Acid Calcium Ionized Calcium Phosphorus Magnesium Total Bilirubin AST ALT Alkaline Phosphatase Ammonia Total Creatine Kinase CK-MB (CK-2) CK-MB (CK-2) Rel Index Total Protein Albumin Urine WBC (Auto) Vancomycin Trough Salicylates Acetaminophen Plasma/Serum Alcohol Crossmatch 12/16/19 12/16/19 12/16/19 00:22 05:30 05:44 WBC 30.8 H RBC 2.58 L Hgb 7.1 L Hct 22.7 L MCH RDW 19.6 H Plt Count 451 H Lymph % (Auto) [place] % (Auto) [place] # Baso # Seg Neutrophils % Seg Neuts % (Manual) Lymphocytes % (Manual) Monocytes % (Manual) Seg Neutrophils # Seg Neutrophils # Man Lymphocytes # (Manual) Monocytes # (Manual) Eosinophils # (Manual) Basophils # (Manual) PT INR APTT ABG pH ABG pO2 ABG HCO3 ABG O2 Saturation ABG Base Excess ABG Hemoglobin Oxyhemoglobin Sodium Potassium Chloride Carbon Dioxide BUN Creatinine Glucose POC Glucose 139 H 126 H Lactic Acid Calcium Ionized Calcium Phosphorus Magnesium Total Bilirubin AST ALT Alkaline Phosphatase Ammonia Total Creatine Kinase CK-MB (CK-2) CK-MB (CK-2) Rel Index Total Protein Albumin Urine WBC (Auto) Vancomycin Trough Salicylates Acetaminophen Plasma/Serum Alcohol Crossmatch 12/16/19 12/16/19 12/16/19 05:44 11:48 17:37 WBC RBC Hgb Hct MCH RDW Plt Count Lymph % (Auto) [place] % (Auto) [place] # Baso # Seg Neutrophils % Seg Neuts % (Manual) Lymphocytes % (Manual) Monocytes % (Manual) Seg Neutrophils # Seg Neutrophils # Man Lymphocytes # (Manual) Monocytes # (Manual) Eosinophils # (Manual) Basophils # (Manual) PT INR APTT ABG pH ABG pO2 ABG HCO3 ABG O2 Saturation ABG Base Excess ABG Hemoglobin Oxyhemoglobin Sodium Potassium 3.4 L Chloride 109.2 H Carbon Dioxide 19 L BUN 27 H Creatinine Glucose 124 H POC Glucose 125 H 148 H Lactic Acid Calcium Ionized Calcium Phosphorus Magnesium Total Bilirubin AST ALT Alkaline Phosphatase Ammonia Total Creatine Kinase CK-MB (CK-2) CK-MB (CK-2) Rel Index Total Protein Albumin Urine WBC (Auto) Vancomycin Trough Salicylates Acetaminophen Plasma/Serum Alcohol Crossmatch 12/16/19 12/17/19 12/17/19 23:43 05:28 12:47 WBC RBC Hgb Hct MCH RDW Plt Count Lymph % (Auto) [place] % (Auto) [place] # Baso # Seg Neutrophils % Seg Neuts % (Manual) Lymphocytes % (Manual) Monocytes % (Manual) Seg Neutrophils # Seg Neutrophils # Man Lymphocytes # (Manual) Monocytes # (Manual) Eosinophils # (Manual) Basophils # (Manual) PT INR APTT ABG pH ABG pO2 ABG HCO3 ABG O2 Saturation ABG Base Excess ABG Hemoglobin Oxyhemoglobin Sodium Potassium Chloride Carbon Dioxide BUN Creatinine Glucose POC Glucose 142 H 140 H 125 H Lactic Acid Calcium Ionized Calcium Phosphorus Magnesium Total Bilirubin AST ALT Alkaline Phosphatase Ammonia Total Creatine Kinase CK-MB (CK-2) CK-MB (CK-2) Rel Index Total Protein Albumin Urine WBC (Auto) Vancomycin Trough Salicylates Acetaminophen Plasma/Serum Alcohol Crossmatch 12/17/19 12/17/19 12/17/19 17:05 18:00 Unknown WBC RBC Hgb Hct MCH RDW Plt Count Lymph % (Auto) [place] % (Auto) [place] # Baso # Seg Neutrophils % Seg Neuts % (Manual) Lymphocytes % (Manual) Monocytes % (Manual) Seg Neutrophils # Seg Neutrophils # Man Lymphocytes # (Manual) Monocytes # (Manual) Eosinophils # (Manual) Basophils # (Manual) PT INR APTT ABG pH ABG pO2 68.1 L ABG HCO3 ABG O2 Saturation 93.7 L ABG Base Excess ABG Hemoglobin 5.0 L Oxyhemoglobin 91.7 L Sodium Potassium Chloride Carbon Dioxide BUN Creatinine Glucose POC Glucose 140 H Lactic Acid Calcium Ionized Calcium Phosphorus Magnesium Total Bilirubin AST ALT Alkaline Phosphatase Ammonia Total Creatine Kinase CK-MB (CK-2) CK-MB (CK-2) Rel Index Total Protein Albumin Urine WBC (Auto) Vancomycin Trough Salicylates Acetaminophen Plasma/Serum Alcohol Crossmatch 12/18/19 12/18/19 12/18/19 00:16 04:53 04:53 WBC 28.6 H RBC 2.27 L Hgb 6.3 L Hct 19.5 L* MCH RDW 20.0 H Plt Count 497 H Lymph % (Auto) [place] % (Auto) [place] # Baso # Seg Neutrophils % Seg Neuts % (Manual) Lymphocytes % (Manual) Monocytes % (Manual) Seg Neutrophils # Seg Neutrophils # Man Lymphocytes # (Manual) Monocytes # (Manual) Eosinophils # (Manual) Basophils # (Manual) PT INR APTT ABG pH ABG pO2 ABG HCO3 ABG O2 Saturation ABG Base Excess ABG Hemoglobin Oxyhemoglobin Sodium Potassium Chloride 107.9 H Carbon Dioxide 20 L BUN 27 H Creatinine 0.6 L Glucose 116 H POC Glucose 123 H Lactic Acid Calcium Ionized Calcium Phosphorus Magnesium Total Bilirubin AST ALT Alkaline Phosphatase Ammonia Total Creatine Kinase CK-MB (CK-2) CK-MB (CK-2) Rel Index Total Protein Albumin Urine WBC (Auto) Vancomycin Trough Salicylates Acetaminophen Plasma/Serum Alcohol Crossmatch 12/18/19 12/18/19 12/18/19 06:38 11:22 12:08 WBC RBC Hgb Hct MCH RDW Plt Count Lymph % (Auto) [place] % (Auto) [place] # Baso # Seg Neutrophils % Seg Neuts % (Manual) Lymphocytes % (Manual) Monocytes % (Manual) Seg Neutrophils # Seg Neutrophils # Man Lymphocytes # (Manual) Monocytes # (Manual) Eosinophils # (Manual) Basophils # (Manual) PT INR APTT ABG pH ABG pO2 ABG HCO3 ABG O2 Saturation ABG Base Excess ABG Hemoglobin Oxyhemoglobin Sodium Potassium Chloride Carbon Dioxide BUN Creatinine Glucose POC Glucose 120 H 127 H Lactic Acid Calcium Ionized Calcium Phosphorus Magnesium Total Bilirubin AST ALT Alkaline Phosphatase Ammonia Total Creatine Kinase CK-MB (CK-2) CK-MB (CK-2) Rel Index Total Protein Albumin Urine WBC (Auto) Vancomycin Trough Salicylates Acetaminophen Plasma/Serum Alcohol Crossmatch See Detail 12/18/19 12/18/19 12/18/19 14:05 17:49 23:53 WBC RBC Hgb Hct MCH RDW Plt Count Lymph % (Auto) [place] % (Auto) [place] # Baso # Seg Neutrophils % Seg Neuts % (Manual) Lymphocytes % (Manual) Monocytes % (Manual) Seg Neutrophils # Seg Neutrophils # Man Lymphocytes # (Manual) Monocytes # (Manual) Eosinophils # (Manual) Basophils # (Manual) PT INR APTT ABG pH 7.267 L ABG pO2 69.8 L ABG HCO3 ABG O2 Saturation 88.4 L ABG Base Excess ABG Hemoglobin 7.1 L Oxyhemoglobin 86.4 L Sodium Potassium Chloride Carbon Dioxide BUN Creatinine Glucose POC Glucose 157 H 128 H Lactic Acid Calcium Ionized Calcium Phosphorus Magnesium Total Bilirubin AST ALT Alkaline Phosphatase Ammonia Total Creatine Kinase CK-MB (CK-2) CK-MB (CK-2) Rel Index Total Protein Albumin Urine WBC (Auto) Vancomycin Trough Salicylates Acetaminophen Plasma/Serum Alcohol Crossmatch 12/19/19 12/19/19 12/19/19 03:37 03:37 05:25 WBC 31.3 H RBC 2.60 L Hgb 7.6 L Hct 23.0 L MCH RDW 19.4 H Plt Count 530 H Lymph % (Auto) [place] % (Auto) [place] # Baso # Seg Neutrophils % Seg Neuts % (Manual) Lymphocytes % (Manual) Monocytes % (Manual) Seg Neutrophils # Seg Neutrophils # Man Lymphocytes # (Manual) Monocytes # (Manual) Eosinophils # (Manual) Basophils # (Manual) PT INR APTT ABG pH ABG pO2 ABG HCO3 ABG O2 Saturation ABG Base Excess ABG Hemoglobin Oxyhemoglobin Sodium Potassium Chloride Carbon Dioxide 18 L BUN 36 H Creatinine Glucose 111 H POC Glucose 123 H Lactic Acid Calcium Ionized Calcium Phosphorus Magnesium Total Bilirubin AST ALT Alkaline Phosphatase Ammonia Total Creatine Kinase CK-MB (CK-2) CK-MB (CK-2) Rel Index Total Protein Albumin Urine WBC (Auto) Vancomycin Trough Salicylates Acetaminophen Plasma/Serum Alcohol Crossmatch 12/19/19 12/19/19 12/20/19 12:59 18:33 00:00 WBC RBC Hgb Hct MCH RDW Plt Count Lymph % (Auto) [place] % (Auto) [place] # Baso # Seg Neutrophils % Seg Neuts % (Manual) Lymphocytes % (Manual) Monocytes % (Manual) Seg Neutrophils # Seg Neutrophils # Man Lymphocytes # (Manual) Monocytes # (Manual) Eosinophils # (Manual) Basophils # (Manual) PT INR APTT ABG pH ABG pO2 ABG HCO3 ABG O2 Saturation ABG Base Excess ABG Hemoglobin Oxyhemoglobin Sodium Potassium Chloride Carbon Dioxide BUN Creatinine Glucose POC Glucose 130 H 118 H 135 H Lactic Acid Calcium Ionized Calcium Phosphorus Magnesium Total Bilirubin AST ALT Alkaline Phosphatase Ammonia Total Creatine Kinase CK-MB (CK-2) CK-MB (CK-2) Rel Index Total Protein Albumin Urine WBC (Auto) Vancomycin Trough Salicylates Acetaminophen Plasma/Serum Alcohol Crossmatch 12/20/19 12/20/19 12/20/19 05:46 12:31 18:07 WBC RBC Hgb Hct MCH RDW Plt Count Lymph % (Auto) [place] % (Auto) [place] # Baso # Seg Neutrophils % Seg Neuts % (Manual) Lymphocytes % (Manual) Monocytes % (Manual) Seg Neutrophils # Seg Neutrophils # Man Lymphocytes # (Manual) Monocytes # (Manual) Eosinophils # (Manual) Basophils # (Manual) PT INR APTT ABG pH ABG pO2 ABG HCO3 ABG O2 Saturation ABG Base Excess ABG Hemoglobin Oxyhemoglobin Sodium Potassium Chloride Carbon Dioxide BUN Creatinine Glucose POC Glucose 131 H 128 H 134 H Lactic Acid Calcium Ionized Calcium Phosphorus Magnesium Total Bilirubin AST ALT Alkaline Phosphatase Ammonia Total Creatine Kinase CK-MB (CK-2) CK-MB (CK-2) Rel Index Total Protein Albumin Urine WBC (Auto) Vancomycin Trough Salicylates Acetaminophen Plasma/Serum Alcohol Crossmatch 12/21/19 12/21/19 12/21/19 03:28 03:28 07:21 WBC 29.4 H RBC 2.30 L Hgb 6.8 L Hct 20.2 L MCH RDW 20.2 H Plt Count 746 H Lymph % (Auto) [place] % (Auto) [place] # Baso # Seg Neutrophils % Seg Neuts % (Manual) 85.0 H Lymphocytes % (Manual) 8.0 L Monocytes % (Manual) Seg Neutrophils # Seg Neutrophils # Man 25.0 H Lymphocytes # (Manual) Monocytes # (Manual) 1.5 H Eosinophils # (Manual) 0.6 H Basophils # (Manual) PT INR APTT ABG pH ABG pO2 ABG HCO3 ABG O2 Saturation ABG Base Excess ABG Hemoglobin Oxyhemoglobin Sodium Potassium Chloride Carbon Dioxide 17 L BUN 57 H Creatinine 1.4 H D Glucose POC Glucose 124 H Lactic Acid Calcium Ionized Calcium Phosphorus Magnesium Total Bilirubin AST ALT Alkaline Phosphatase Ammonia Total Creatine Kinase CK-MB (CK-2) CK-MB (CK-2) Rel Index Total Protein Albumin Urine WBC (Auto) Vancomycin Trough Salicylates Acetaminophen Plasma/Serum Alcohol Crossmatch 12/21/19 12/21/19 12/21/19 08:56 12:06 14:53 WBC RBC Hgb 7.2 L Hct 22.9 L MCH RDW Plt Count Lymph % (Auto) [place] % (Auto) [place] # Baso # Seg Neutrophils % Seg Neuts % (Manual) Lymphocytes % (Manual) Monocytes % (Manual) Seg Neutrophils # Seg Neutrophils # Man Lymphocytes # (Manual) Monocytes # (Manual) Eosinophils # (Manual) Basophils # (Manual) PT INR APTT ABG pH ABG pO2 ABG HCO3 ABG O2 Saturation ABG Base Excess ABG Hemoglobin Oxyhemoglobin Sodium Potassium Chloride Carbon Dioxide BUN Creatinine Glucose POC Glucose 116 H Lactic Acid Calcium Ionized Calcium Phosphorus Magnesium Total Bilirubin AST ALT Alkaline Phosphatase Ammonia Total Creatine Kinase CK-MB (CK-2) CK-MB (CK-2) Rel Index Total Protein Albumin Urine WBC (Auto) Vancomycin Trough 33.8 H Salicylates Acetaminophen Plasma/Serum Alcohol Crossmatch 12/21/19 12/21/19 12/21/19 14:54 17:27 23:49 WBC RBC Hgb Hct MCH RDW Plt Count Lymph % (Auto) [place] % (Auto) [place] # Baso # Seg Neutrophils % Seg Neuts % (Manual) Lymphocytes % (Manual) Monocytes % (Manual) Seg Neutrophils # Seg Neutrophils # Man Lymphocytes # (Manual) Monocytes # (Manual) Eosinophils # (Manual) Basophils # (Manual) PT INR APTT ABG pH ABG pO2 ABG HCO3 ABG O2 Saturation ABG Base Excess ABG Hemoglobin Oxyhemoglobin Sodium Potassium Chloride Carbon Dioxide BUN Creatinine Glucose POC Glucose 145 H 127 H Lactic Acid Calcium Ionized Calcium Phosphorus Magnesium Total Bilirubin AST ALT Alkaline Phosphatase Ammonia Total Creatine Kinase CK-MB (CK-2) CK-MB (CK-2) Rel Index Total Protein Albumin Urine WBC (Auto) Vancomycin Trough Salicylates Acetaminophen Plasma/Serum Alcohol Crossmatch See Detail 12/22/19 12/22/19 12/22/19 04:43 05:56 08:40 WBC RBC Hgb Hct MCH RDW Plt Count Lymph % (Auto) [place] % (Auto) [place] # Baso # Seg Neutrophils % Seg Neuts % (Manual) Lymphocytes % (Manual) Monocytes % (Manual) Seg Neutrophils # Seg Neutrophils # Man Lymphocytes # (Manual) Monocytes # (Manual) Eosinophils # (Manual) Basophils # (Manual) PT INR APTT ABG pH ABG pO2 75.6 L ABG HCO3 ABG O2 Saturation ABG Base Excess -2.6 L ABG Hemoglobin 6.8 L Oxyhemoglobin 94.6 L Sodium Potassium Chloride Carbon Dioxide 17 L BUN 60 H Creatinine 1.4 H Glucose 126 H POC Glucose 153 H Lactic Acid Calcium Ionized Calcium Phosphorus Magnesium Total Bilirubin AST ALT Alkaline Phosphatase Ammonia Total Creatine Kinase CK-MB (CK-2) CK-MB (CK-2) Rel Index Total Protein Albumin Urine WBC (Auto) Vancomycin Trough Salicylates Acetaminophen Plasma/Serum Alcohol Crossmatch 12/22/19 12/22/19 12/23/19 12:07 17:49 04:30 WBC 22.4 H RBC 2.68 L Hgb 7.6 L Hct 22.9 L MCH RDW 19.9 H Plt Count 998 H Lymph % (Auto) [place] % (Auto) [place] # Baso # Seg Neutrophils % Seg Neuts % (Manual) 88.0 H Lymphocytes % (Manual) 2.0 L Monocytes % (Manual) 9.0 H Seg Neutrophils # Seg Neutrophils # Man 19.7 H Lymphocytes # (Manual) 0.4 L Monocytes # (Manual) 2.0 H Eosinophils # (Manual) Basophils # (Manual) PT INR APTT ABG pH ABG pO2 ABG HCO3 ABG O2 Saturation ABG Base Excess ABG Hemoglobin Oxyhemoglobin Sodium Potassium Chloride Carbon Dioxide BUN Creatinine Glucose POC Glucose 140 H 116 H Lactic Acid Calcium Ionized Calcium Phosphorus Magnesium Total Bilirubin AST ALT Alkaline Phosphatase Ammonia Total Creatine Kinase CK-MB (CK-2) CK-MB (CK-2) Rel Index Total Protein Albumin Urine WBC (Auto) Vancomycin Trough Salicylates Acetaminophen Plasma/Serum Alcohol Crossmatch 12/23/19 12/23/19 12/23/19 04:30 12:00 18:06 WBC RBC Hgb Hct MCH RDW Plt Count Lymph % (Auto) [place] % (Auto) [place] # Baso # Seg Neutrophils % Seg Neuts % (Manual) Lymphocytes % (Manual) Monocytes % (Manual) Seg Neutrophils # Seg Neutrophils # Man Lymphocytes # (Manual) Monocytes # (Manual) Eosinophils # (Manual) Basophils # (Manual) PT INR APTT ABG pH ABG pO2 ABG HCO3 ABG O2 Saturation ABG Base Excess ABG Hemoglobin Oxyhemoglobin Sodium Potassium 5.2 H Chloride Carbon Dioxide 21 L BUN 69 H Creatinine 1.5 H Glucose 117 H POC Glucose 128 H 138 H Lactic Acid Calcium Ionized Calcium Phosphorus Magnesium Total Bilirubin AST ALT Alkaline Phosphatase Ammonia Total Creatine Kinase CK-MB (CK-2) CK-MB (CK-2) Rel Index Total Protein Albumin Urine WBC (Auto) Vancomycin Trough Salicylates Acetaminophen Plasma/Serum Alcohol Crossmatch 12/23/19 12/24/19 12/24/19 23:46 04:31 05:08 WBC RBC Hgb Hct MCH RDW Plt Count Lymph % (Auto) [place] % (Auto) [place] # Baso # Seg Neutrophils % Seg Neuts % (Manual) Lymphocytes % (Manual) Monocytes % (Manual) Seg Neutrophils # Seg Neutrophils # Man Lymphocytes # (Manual) Monocytes # (Manual) Eosinophils # (Manual) Basophils # (Manual) PT INR APTT ABG pH ABG pO2 ABG HCO3 ABG O2 Saturation ABG Base Excess ABG Hemoglobin Oxyhemoglobin Sodium Potassium 5.3 H Chloride 107.6 H Carbon Dioxide 20 L BUN 72 H Creatinine 1.6 H Glucose 120 H POC Glucose 120 H 140 H Lactic Acid Calcium Ionized Calcium Phosphorus Magnesium Total Bilirubin AST ALT Alkaline Phosphatase Ammonia Total Creatine Kinase CK-MB (CK-2) CK-MB (CK-2) Rel Index Total Protein Albumin Urine WBC (Auto) Vancomycin Trough Salicylates Acetaminophen Plasma/Serum Alcohol Crossmatch 12/24/19 12/24/19 12/25/19 11:58 17:49 03:47 WBC 36.2 H RBC 2.92 L Hgb 8.4 L Hct 26.1 L MCH RDW 20.2 H Plt Count 942 H Lymph % (Auto) [place] % (Auto) [place] # Baso # Seg Neutrophils % Seg Neuts % (Manual) 97.5 H Lymphocytes % (Manual) 1.0 L Monocytes % (Manual) Seg Neutrophils # Seg Neutrophils # Man 35.3 H Lymphocytes # (Manual) 0.4 L Monocytes # (Manual) Eosinophils # (Manual) Basophils # (Manual) PT INR APTT ABG pH ABG pO2 ABG HCO3 ABG O2 Saturation ABG Base Excess ABG Hemoglobin Oxyhemoglobin Sodium Potassium Chloride Carbon Dioxide BUN Creatinine Glucose POC Glucose 146 H 131 H Lactic Acid Calcium Ionized Calcium Phosphorus Magnesium Total Bilirubin AST ALT Alkaline Phosphatase Ammonia Total Creatine Kinase CK-MB (CK-2) CK-MB (CK-2) Rel Index Total Protein Albumin Urine WBC (Auto) Vancomycin Trough Salicylates Acetaminophen Plasma/Serum Alcohol Crossmatch 12/25/19 12/25/19 12/25/19 03:47 05:30 12:23 WBC RBC Hgb Hct MCH RDW Plt Count Lymph % (Auto) [place] % (Auto) [place] # Baso # Seg Neutrophils % Seg Neuts % (Manual) Lymphocytes % (Manual) Monocytes % (Manual) Seg Neutrophils # Seg Neutrophils # Man Lymphocytes # (Manual) Monocytes # (Manual) Eosinophils # (Manual) Basophils # (Manual) PT INR APTT ABG pH ABG pO2 ABG HCO3 ABG O2 Saturation ABG Base Excess ABG Hemoglobin Oxyhemoglobin Sodium Potassium Chloride Carbon Dioxide 15 L BUN 70 H Creatinine 1.7 H Glucose 153 H POC Glucose 169 H 135 H Lactic Acid Calcium Ionized Calcium Phosphorus Magnesium Total Bilirubin AST ALT Alkaline Phosphatase Ammonia Total Creatine Kinase CK-MB (CK-2) CK-MB (CK-2) Rel Index Total Protein Albumin Urine WBC (Auto) Vancomycin Trough Salicylates Acetaminophen Plasma/Serum Alcohol Crossmatch 12/25/19 12/25/19 12/26/19 17:37 23:29 09:47 WBC 22.1 H RBC 2.83 L Hgb 7.9 L Hct 25.5 L MCH RDW 20.0 H Plt Count 894 H Lymph % (Auto) [place] % (Auto) [place] # Baso # Seg Neutrophils % Seg Neuts % (Manual) Lymphocytes % (Manual) Monocytes % (Manual) Seg Neutrophils # Seg Neutrophils # Man Lymphocytes # (Manual) Monocytes # (Manual) Eosinophils # (Manual) Basophils # (Manual) PT INR APTT ABG pH ABG pO2 ABG HCO3 ABG O2 Saturation ABG Base Excess ABG Hemoglobin Oxyhemoglobin Sodium Potassium Chloride Carbon Dioxide BUN Creatinine Glucose POC Glucose 120 H 140 H Lactic Acid Calcium Ionized Calcium Phosphorus Magnesium Total Bilirubin AST ALT Alkaline Phosphatase Ammonia Total Creatine Kinase CK-MB (CK-2) CK-MB (CK-2) Rel Index Total Protein Albumin Urine WBC (Auto) Vancomycin Trough Salicylates Acetaminophen Plasma/Serum Alcohol Crossmatch 12/26/19 12/26/19 12/26/19 09:47 11:46 17:52 WBC RBC Hgb Hct MCH RDW Plt Count Lymph % (Auto) [place] % (Auto) [place] # Baso # Seg Neutrophils % Seg Neuts % (Manual) Lymphocytes % (Manual) Monocytes % (Manual) Seg Neutrophils # Seg Neutrophils # Man Lymphocytes # (Manual) Monocytes # (Manual) Eosinophils # (Manual) Basophils # (Manual) PT INR APTT ABG pH ABG pO2 ABG HCO3 ABG O2 Saturation ABG Base Excess ABG Hemoglobin Oxyhemoglobin Sodium Potassium Chloride Carbon Dioxide 18 L BUN 65 H Creatinine 1.4 H Glucose 132 H POC Glucose 110 H 145 H Lactic Acid Calcium Ionized Calcium Phosphorus Magnesium Total Bilirubin AST ALT Alkaline Phosphatase Ammonia Total Creatine Kinase CK-MB (CK-2) CK-MB (CK-2) Rel Index Total Protein Albumin Urine WBC (Auto) Vancomycin Trough Salicylates Acetaminophen Plasma/Serum Alcohol Crossmatch 12/27/19 12/27/19 12/27/19 00:01 03:42 03:42 WBC 18.0 H RBC 2.86 L Hgb 8.0 L Hct 25.2 L MCH RDW 19.2 H Plt Count 873 H Lymph % (Auto) 8.4 L [place] % (Auto) 7.5 H [place] # 1.4 H Baso # 0.2 H Seg Neutrophils % 82.2 H Seg Neuts % (Manual) Lymphocytes % (Manual) Monocytes % (Manual) Seg Neutrophils # 14.8 H Seg Neutrophils # Man Lymphocytes # (Manual) Monocytes # (Manual) Eosinophils # (Manual) Basophils # (Manual) PT INR APTT ABG pH ABG pO2 ABG HCO3 ABG O2 Saturation ABG Base Excess ABG Hemoglobin Oxyhemoglobin Sodium Potassium Chloride Carbon Dioxide BUN 73 H Creatinine 1.4 H Glucose 119 H POC Glucose 124 H Lactic Acid Calcium Ionized Calcium Phosphorus Magnesium Total Bilirubin AST ALT Alkaline Phosphatase Ammonia Total Creatine Kinase CK-MB (CK-2) CK-MB (CK-2) Rel Index Total Protein Albumin Urine WBC (Auto) Vancomycin Trough Salicylates Acetaminophen Plasma/Serum Alcohol Crossmatch 12/27/19 12/27/19 12/27/19 05:45 11:45 17:29 WBC RBC Hgb Hct MCH RDW Plt Count Lymph % (Auto) [place] % (Auto) [place] # Baso # Seg Neutrophils % Seg Neuts % (Manual) Lymphocytes % (Manual) Monocytes % (Manual) Seg Neutrophils # Seg Neutrophils # Man Lymphocytes # (Manual) Monocytes # (Manual) Eosinophils # (Manual) Basophils # (Manual) PT INR APTT ABG pH ABG pO2 ABG HCO3 ABG O2 Saturation ABG Base Excess ABG Hemoglobin Oxyhemoglobin Sodium Potassium Chloride Carbon Dioxide BUN Creatinine Glucose POC Glucose 131 H 123 H 134 H Lactic Acid Calcium Ionized Calcium Phosphorus Magnesium Total Bilirubin AST ALT Alkaline Phosphatase Ammonia Total Creatine Kinase CK-MB (CK-2) CK-MB (CK-2) Rel Index Total Protein Albumin Urine WBC (Auto) Vancomycin Trough Salicylates Acetaminophen Plasma/Serum Alcohol Crossmatch 12/28/19 12/28/19 12/28/19 00:12 05:14 11:53 WBC RBC Hgb Hct MCH RDW Plt Count Lymph % (Auto) [place] % (Auto) [place] # Baso # Seg Neutrophils % Seg Neuts % (Manual) Lymphocytes % (Manual) Monocytes % (Manual) Seg Neutrophils # Seg Neutrophils # Man Lymphocytes # (Manual) Monocytes # (Manual) Eosinophils # (Manual) Basophils # (Manual) PT INR APTT ABG pH ABG pO2 ABG HCO3 ABG O2 Saturation ABG Base Excess ABG Hemoglobin Oxyhemoglobin Sodium Potassium Chloride Carbon Dioxide BUN Creatinine Glucose POC Glucose 138 H 130 H 146 H Lactic Acid Calcium Ionized Calcium Phosphorus Magnesium Total Bilirubin AST ALT Alkaline Phosphatase Ammonia Total Creatine Kinase CK-MB (CK-2) CK-MB (CK-2) Rel Index Total Protein Albumin Urine WBC (Auto) Vancomycin Trough Salicylates Acetaminophen Plasma/Serum Alcohol Crossmatch 12/28/19 12/29/19 12/29/19 17:39 00:01 18:11 WBC RBC Hgb Hct MCH RDW Plt Count Lymph % (Auto) [place] % (Auto) [place] # Baso # Seg Neutrophils % Seg Neuts % (Manual) Lymphocytes % (Manual) Monocytes % (Manual) Seg Neutrophils # Seg Neutrophils # Man Lymphocytes # (Manual) Monocytes # (Manual) Eosinophils # (Manual) Basophils # (Manual) PT INR APTT ABG pH ABG pO2 ABG HCO3 ABG O2 Saturation ABG Base Excess ABG Hemoglobin Oxyhemoglobin Sodium Potassium Chloride Carbon Dioxide BUN Creatinine Glucose POC Glucose 117 H 139 H 130 H Lactic Acid Calcium Ionized Calcium Phosphorus Magnesium Total Bilirubin AST ALT Alkaline Phosphatase Ammonia Total Creatine Kinase CK-MB (CK-2) CK-MB (CK-2) Rel Index Total Protein Albumin Urine WBC (Auto) Vancomycin Trough Salicylates Acetaminophen Plasma/Serum Alcohol Crossmatch 12/29/19 12/30/19 12/30/19 23:09 00:02 01:06 WBC 16.7 H RBC 2.91 L Hgb 8.2 L Hct 25.4 L MCH RDW 18.7 H Plt Count 708 H Lymph % (Auto) 9.4 L [place] % (Auto) [place] # 0.9 H Baso # Seg Neutrophils % 83.5 H Seg Neuts % (Manual) Lymphocytes % (Manual) Monocytes % (Manual) Seg Neutrophils # 14.0 H Seg Neutrophils # Man Lymphocytes # (Manual) Monocytes # (Manual) Eosinophils # (Manual) Basophils # (Manual) PT INR APTT ABG pH ABG pO2 ABG HCO3 ABG O2 Saturation ABG Base Excess ABG Hemoglobin Oxyhemoglobin Sodium Potassium Chloride Carbon Dioxide BUN Creatinine Glucose POC Glucose 120 H 114 H Lactic Acid Calcium Ionized Calcium Phosphorus Magnesium Total Bilirubin AST ALT Alkaline Phosphatase Ammonia Total Creatine Kinase CK-MB (CK-2) CK-MB (CK-2) Rel Index Total Protein Albumin Urine WBC (Auto) Vancomycin Trough Salicylates Acetaminophen Plasma/Serum Alcohol Crossmatch 12/30/19 12/30/19 12/30/19 01:06 04:23 05:18 WBC RBC Hgb Hct MCH RDW Plt Count Lymph % (Auto) [place] % (Auto) [place] # Baso # Seg Neutrophils % Seg Neuts % (Manual) Lymphocytes % (Manual) Monocytes % (Manual) Seg Neutrophils # Seg Neutrophils # Man Lymphocytes # (Manual) Monocytes # (Manual) Eosinophils # (Manual) Basophils # (Manual) PT INR APTT ABG pH ABG pO2 ABG HCO3 ABG O2 Saturation ABG Base Excess ABG Hemoglobin 8.3 L Oxyhemoglobin Sodium Potassium Chloride Carbon Dioxide BUN 70 H Creatinine Glucose 122 H POC Glucose 130 H Lactic Acid Calcium Ionized Calcium Phosphorus Magnesium Total Bilirubin AST ALT Alkaline Phosphatase Ammonia Total Creatine Kinase CK-MB (CK-2) CK-MB (CK-2) Rel Index Total Protein Albumin Urine WBC (Auto) Vancomycin Trough Salicylates Acetaminophen Plasma/Serum Alcohol Crossmatch 12/30/19 12/30/19 12/30/19 05:40 12:17 17:43 WBC RBC Hgb Hct MCH RDW Plt Count Lymph % (Auto) [place] % (Auto) [place] # Baso # Seg Neutrophils % Seg Neuts % (Manual) Lymphocytes % (Manual) Monocytes % (Manual) Seg Neutrophils # Seg Neutrophils # Man Lymphocytes # (Manual) Monocytes # (Manual) Eosinophils # (Manual) Basophils # (Manual) PT INR APTT ABG pH ABG pO2 ABG HCO3 ABG O2 Saturation ABG Base Excess ABG Hemoglobin Oxyhemoglobin Sodium Potassium Chloride Carbon Dioxide BUN Creatinine Glucose POC Glucose 135 H 132 H 118 H Lactic Acid Calcium Ionized Calcium Phosphorus Magnesium Total Bilirubin AST ALT Alkaline Phosphatase Ammonia Total Creatine Kinase CK-MB (CK-2) CK-MB (CK-2) Rel Index Total Protein Albumin Urine WBC (Auto) Vancomycin Trough Salicylates Acetaminophen Plasma/Serum Alcohol Crossmatch 12/30/19 12/31/19 12/31/19 23:29 05:19 17:50 WBC RBC Hgb Hct MCH RDW Plt Count Lymph % (Auto) [place] % (Auto) [place] # Baso # Seg Neutrophils % Seg Neuts % (Manual) Lymphocytes % (Manual) Monocytes % (Manual) Seg Neutrophils # Seg Neutrophils # Man Lymphocytes # (Manual) Monocytes # (Manual) Eosinophils # (Manual) Basophils # (Manual) PT INR APTT ABG pH ABG pO2 ABG HCO3 ABG O2 Saturation ABG Base Excess ABG Hemoglobin Oxyhemoglobin Sodium Potassium Chloride Carbon Dioxide BUN Creatinine Glucose POC Glucose 114 H 109 H 116 H Lactic Acid Calcium Ionized Calcium Phosphorus Magnesium Total Bilirubin AST ALT Alkaline Phosphatase Ammonia Total Creatine Kinase CK-MB (CK-2) CK-MB (CK-2) Rel Index Total Protein Albumin Urine WBC (Auto) Vancomycin Trough Salicylates Acetaminophen Plasma/Serum Alcohol Crossmatch 01/01/20 01/01/20 01/01/20 00:10 05:19 12:02 WBC RBC Hgb Hct MCH RDW Plt Count Lymph % (Auto) [place] % (Auto) [place] # Baso # Seg Neutrophils % Seg Neuts % (Manual) Lymphocytes % (Manual) Monocytes % (Manual) Seg Neutrophils # Seg Neutrophils # Man Lymphocytes # (Manual) Monocytes # (Manual) Eosinophils # (Manual) Basophils # (Manual) PT INR APTT ABG pH ABG pO2 ABG HCO3 ABG O2 Saturation ABG Base Excess ABG Hemoglobin Oxyhemoglobin Sodium Potassium Chloride Carbon Dioxide BUN Creatinine Glucose POC Glucose 131 H 122 H 136 H Lactic Acid Calcium Ionized Calcium Phosphorus Magnesium Total Bilirubin AST ALT Alkaline Phosphatase Ammonia Total Creatine Kinase CK-MB (CK-2) CK-MB (CK-2) Rel Index Total Protein Albumin Urine WBC (Auto) Vancomycin Trough Salicylates Acetaminophen Plasma/Serum Alcohol Crossmatch 01/02/20 01/02/20 01/02/20 00:24 05:36 11:41 WBC RBC Hgb Hct MCH RDW Plt Count Lymph % (Auto) [place] % (Auto) [place] # Baso # Seg Neutrophils % Seg Neuts % (Manual) Lymphocytes % (Manual) Monocytes % (Manual) Seg Neutrophils # Seg Neutrophils # Man Lymphocytes # (Manual) Monocytes # (Manual) Eosinophils # (Manual) Basophils # (Manual) PT INR APTT ABG pH ABG pO2 ABG HCO3 ABG O2 Saturation ABG Base Excess ABG Hemoglobin Oxyhemoglobin Sodium Potassium Chloride Carbon Dioxide BUN Creatinine Glucose POC Glucose 119 H 109 H 125 H Lactic Acid Calcium Ionized Calcium Phosphorus Magnesium Total Bilirubin AST ALT Alkaline Phosphatase Ammonia Total Creatine Kinase CK-MB (CK-2) CK-MB (CK-2) Rel Index Total Protein Albumin Urine WBC (Auto) Vancomycin Trough Salicylates Acetaminophen Plasma/Serum Alcohol Crossmatch 01/02/20 01/03/20 01/03/20 17:49 05:29 12:13 WBC RBC Hgb Hct MCH RDW Plt Count Lymph % (Auto) [place] % (Auto) [place] # Baso # Seg Neutrophils % Seg Neuts % (Manual) Lymphocytes % (Manual) Monocytes % (Manual) Seg Neutrophils # Seg Neutrophils # Man Lymphocytes # (Manual) Monocytes # (Manual) Eosinophils # (Manual) Basophils # (Manual) PT INR APTT ABG pH ABG pO2 ABG HCO3 ABG O2 Saturation ABG Base Excess ABG Hemoglobin Oxyhemoglobin Sodium Potassium Chloride Carbon Dioxide BUN Creatinine Glucose POC Glucose 130 H 132 H 113 H Lactic Acid Calcium Ionized Calcium Phosphorus Magnesium Total Bilirubin AST ALT Alkaline Phosphatase Ammonia Total Creatine Kinase CK-MB (CK-2) CK-MB (CK-2) Rel Index Total Protein Albumin Urine WBC (Auto) Vancomycin Trough Salicylates Acetaminophen Plasma/Serum Alcohol Crossmatch 01/03/20 01/04/20 01/04/20 17:32 00:19 05:26 WBC RBC Hgb Hct MCH RDW Plt Count Lymph % (Auto) [place] % (Auto) [place] # Baso # Seg Neutrophils % Seg Neuts % (Manual) Lymphocytes % (Manual) Monocytes % (Manual) Seg Neutrophils # Seg Neutrophils # Man Lymphocytes # (Manual) Monocytes # (Manual) Eosinophils # (Manual) Basophils # (Manual) PT INR APTT ABG pH ABG pO2 ABG HCO3 ABG O2 Saturation ABG Base Excess ABG Hemoglobin Oxyhemoglobin Sodium Potassium Chloride Carbon Dioxide BUN Creatinine Glucose POC Glucose 127 H 141 H 129 H Lactic Acid Calcium Ionized Calcium Phosphorus Magnesium Total Bilirubin AST ALT Alkaline Phosphatase Ammonia Total Creatine Kinase CK-MB (CK-2) CK-MB (CK-2) Rel Index Total Protein Albumin Urine WBC (Auto) Vancomycin Trough Salicylates Acetaminophen Plasma/Serum Alcohol Crossmatch 01/04/20 01/04/20 01/05/20 11:39 17:29 05:22 WBC RBC Hgb Hct MCH RDW Plt Count Lymph % (Auto) [place] % (Auto) [place] # Baso # Seg Neutrophils % Seg Neuts % (Manual) Lymphocytes % (Manual) Monocytes % (Manual) Seg Neutrophils # Seg Neutrophils # Man Lymphocytes # (Manual) Monocytes # (Manual) Eosinophils # (Manual) Basophils # (Manual) PT INR APTT ABG pH ABG pO2 ABG HCO3 ABG O2 Saturation ABG Base Excess ABG Hemoglobin Oxyhemoglobin Sodium Potassium Chloride Carbon Dioxide BUN Creatinine Glucose POC Glucose 167 H 132 H 121 H Lactic Acid Calcium Ionized Calcium Phosphorus Magnesium Total Bilirubin AST ALT Alkaline Phosphatase Ammonia Total Creatine Kinase CK-MB (CK-2) CK-MB (CK-2) Rel Index Total Protein Albumin Urine WBC (Auto) Vancomycin Trough Salicylates Acetaminophen Plasma/Serum Alcohol Crossmatch 01/05/20 01/05/20 01/05/20 12:25 17:40 18:06 WBC RBC Hgb Hct MCH RDW Plt Count Lymph % (Auto) [place] % (Auto) [place] # Baso # Seg Neutrophils % Seg Neuts % (Manual) Lymphocytes % (Manual) Monocytes % (Manual) Seg Neutrophils # Seg Neutrophils # Man Lymphocytes # (Manual) Monocytes # (Manual) Eosinophils # (Manual) Basophils # (Manual) PT INR APTT ABG pH 7.472 H ABG pO2 99.2 H ABG HCO3 ABG O2 Saturation ABG Base Excess ABG Hemoglobin 7.8 L Oxyhemoglobin Sodium Potassium Chloride Carbon Dioxide BUN Creatinine Glucose POC Glucose 106 H 110 H Lactic Acid Calcium Ionized Calcium Phosphorus Magnesium Total Bilirubin AST ALT Alkaline Phosphatase Ammonia Total Creatine Kinase CK-MB (CK-2) CK-MB (CK-2) Rel Index Total Protein Albumin Urine WBC (Auto) Vancomycin Trough Salicylates Acetaminophen Plasma/Serum Alcohol Crossmatch 01/06/20 01/06/20 01/06/20 00:11 05:16 11:30 WBC RBC Hgb Hct MCH RDW Plt Count Lymph % (Auto) [place] % (Auto) [place] # Baso # Seg Neutrophils % Seg Neuts % (Manual) Lymphocytes % (Manual) Monocytes % (Manual) Seg Neutrophils # Seg Neutrophils # Man Lymphocytes # (Manual) Monocytes # (Manual) Eosinophils # (Manual) Basophils # (Manual) PT INR APTT ABG pH ABG pO2 ABG HCO3 ABG O2 Saturation ABG Base Excess ABG Hemoglobin Oxyhemoglobin Sodium Potassium Chloride Carbon Dioxide BUN Creatinine Glucose POC Glucose 108 H 124 H 125 H Lactic Acid Calcium Ionized Calcium Phosphorus Magnesium Total Bilirubin AST ALT Alkaline Phosphatase Ammonia Total Creatine Kinase CK-MB (CK-2) CK-MB (CK-2) Rel Index Total Protein Albumin Urine WBC (Auto) Vancomycin Trough Salicylates Acetaminophen Plasma/Serum Alcohol Crossmatch 01/06/20 01/06/20 01/07/20 17:53 23:51 04:12 WBC 16.5 H RBC 3.29 L Hgb 9.3 L Hct 28.1 L MCH RDW 18.2 H Plt Count 526 H Lymph % (Auto) 8.4 L [place] % (Auto) [place] # 1.0 H Baso # Seg Neutrophils % 84.4 H Seg Neuts % (Manual) Lymphocytes % (Manual) Monocytes % (Manual) Seg Neutrophils # 13.9 H Seg Neutrophils # Man Lymphocytes # (Manual) Monocytes # (Manual) Eosinophils # (Manual) Basophils # (Manual) PT INR APTT ABG pH ABG pO2 ABG HCO3 ABG O2 Saturation ABG Base Excess ABG Hemoglobin Oxyhemoglobin Sodium Potassium Chloride Carbon Dioxide BUN Creatinine Glucose POC Glucose 166 H 128 H Lactic Acid Calcium Ionized Calcium Phosphorus Magnesium Total Bilirubin AST ALT Alkaline Phosphatase Ammonia Total Creatine Kinase CK-MB (CK-2) CK-MB (CK-2) Rel Index Total Protein Albumin Urine WBC (Auto) Vancomycin Trough Salicylates Acetaminophen Plasma/Serum Alcohol Crossmatch 01/07/20 01/07/20 01/07/20 04:12 04:45 11:51 WBC RBC Hgb Hct MCH RDW Plt Count Lymph % (Auto) [place] % (Auto) [place] # Baso # Seg Neutrophils % Seg Neuts % (Manual) Lymphocytes % (Manual) Monocytes % (Manual) Seg Neutrophils # Seg Neutrophils # Man Lymphocytes # (Manual) Monocytes # (Manual) Eosinophils # (Manual) Basophils # (Manual) PT INR APTT ABG pH ABG pO2 ABG HCO3 ABG O2 Saturation ABG Base Excess ABG Hemoglobin Oxyhemoglobin Sodium 136 L Potassium Chloride Carbon Dioxide 21 L BUN 44 H Creatinine 0.6 L Glucose 124 H POC Glucose 134 H 138 H Lactic Acid Calcium Ionized Calcium Phosphorus Magnesium Total Bilirubin AST ALT Alkaline Phosphatase Ammonia Total Creatine Kinase CK-MB (CK-2) CK-MB (CK-2) Rel Index Total Protein Albumin Urine WBC (Auto) Vancomycin Trough Salicylates Acetaminophen Plasma/Serum Alcohol Crossmatch 01/07/20 01/08/20 01/08/20 17:36 00:33 05:29 WBC RBC Hgb Hct MCH RDW Plt Count Lymph % (Auto) [place] % (Auto) [place] # Baso # Seg Neutrophils % Seg Neuts % (Manual) Lymphocytes % (Manual) Monocytes % (Manual) Seg Neutrophils # Seg Neutrophils # Man Lymphocytes # (Manual) Monocytes # (Manual) Eosinophils # (Manual) Basophils # (Manual) PT INR APTT ABG pH ABG pO2 ABG HCO3 ABG O2 Saturation ABG Base Excess ABG Hemoglobin Oxyhemoglobin Sodium Potassium Chloride Carbon Dioxide BUN Creatinine Glucose POC Glucose 128 H 119 H 124 H Lactic Acid Calcium Ionized Calcium Phosphorus Magnesium Total Bilirubin AST ALT Alkaline Phosphatase Ammonia Total Creatine Kinase CK-MB (CK-2) CK-MB (CK-2) Rel Index Total Protein Albumin Urine WBC (Auto) Vancomycin Trough Salicylates Acetaminophen Plasma/Serum Alcohol Crossmatch 01/08/20 01/08/20 01/08/20 12:51 20:25 23:22 WBC RBC Hgb Hct MCH RDW Plt Count Lymph % (Auto) [place] % (Auto) [place] # Baso # Seg Neutrophils % Seg Neuts % (Manual) Lymphocytes % (Manual) Monocytes % (Manual) Seg Neutrophils # Seg Neutrophils # Man Lymphocytes # (Manual) Monocytes # (Manual) Eosinophils # (Manual) Basophils # (Manual) PT INR APTT ABG pH ABG pO2 132.2 H ABG HCO3 ABG O2 Saturation ABG Base Excess ABG Hemoglobin Oxyhemoglobin Sodium Potassium Chloride Carbon Dioxide BUN Creatinine Glucose POC Glucose 128 H 127 H Lactic Acid Calcium Ionized Calcium Phosphorus Magnesium Total Bilirubin AST ALT Alkaline Phosphatase Ammonia Total Creatine Kinase CK-MB (CK-2) CK-MB (CK-2) Rel Index Total Protein Albumin Urine WBC (Auto) Vancomycin Trough Salicylates Acetaminophen Plasma/Serum Alcohol Crossmatch 01/09/20 01/09/20 01/09/20 05:48 08:51 11:29 WBC RBC Hgb Hct MCH RDW Plt Count Lymph % (Auto) [place] % (Auto) [place] # Baso # Seg Neutrophils % Seg Neuts % (Manual) Lymphocytes % (Manual) Monocytes % (Manual) Seg Neutrophils # Seg Neutrophils # Man Lymphocytes # (Manual) Monocytes # (Manual) Eosinophils # (Manual) Basophils # (Manual) PT INR APTT ABG pH ABG pO2 94.3 H ABG HCO3 ABG O2 Saturation ABG Base Excess ABG Hemoglobin 9.5 L Oxyhemoglobin Sodium Potassium Chloride Carbon Dioxide BUN Creatinine Glucose POC Glucose 120 H 112 H Lactic Acid Calcium Ionized Calcium Phosphorus Magnesium Total Bilirubin AST ALT Alkaline Phosphatase Ammonia Total Creatine Kinase CK-MB (CK-2) CK-MB (CK-2) Rel Index Total Protein Albumin Urine WBC (Auto) Vancomycin Trough Salicylates Acetaminophen Plasma/Serum Alcohol Crossmatch 01/09/20 01/10/20 01/10/20 17:57 05:17 12:28 WBC RBC Hgb Hct MCH RDW Plt Count Lymph % (Auto) [place] % (Auto) [place] # Baso # Seg Neutrophils % Seg Neuts % (Manual) Lymphocytes % (Manual) Monocytes % (Manual) Seg Neutrophils # Seg Neutrophils # Man Lymphocytes # (Manual) Monocytes # (Manual) Eosinophils # (Manual) Basophils # (Manual) PT INR APTT ABG pH ABG pO2 ABG HCO3 ABG O2 Saturation ABG Base Excess ABG Hemoglobin Oxyhemoglobin Sodium Potassium Chloride Carbon Dioxide BUN Creatinine Glucose POC Glucose 122 H 115 H 116 H Lactic Acid Calcium Ionized Calcium Phosphorus Magnesium Total Bilirubin AST ALT Alkaline Phosphatase Ammonia Total Creatine Kinase CK-MB (CK-2) CK-MB (CK-2) Rel Index Total Protein Albumin Urine WBC (Auto) Vancomycin Trough Salicylates Acetaminophen Plasma/Serum Alcohol Crossmatch 01/10/20 01/10/20 01/11/20 18:25 23:47 06:05 WBC RBC Hgb Hct MCH RDW Plt Count Lymph % (Auto) [place] % (Auto) [place] # Baso # Seg Neutrophils % Seg Neuts % (Manual) Lymphocytes % (Manual) Monocytes % (Manual) Seg Neutrophils # Seg Neutrophils # Man Lymphocytes # (Manual) Monocytes # (Manual) Eosinophils # (Manual) Basophils # (Manual) PT INR APTT ABG pH ABG pO2 ABG HCO3 ABG O2 Saturation ABG Base Excess ABG Hemoglobin Oxyhemoglobin Sodium Potassium Chloride Carbon Dioxide BUN Creatinine Glucose POC Glucose 123 H 115 H 151 H Lactic Acid Calcium Ionized Calcium Phosphorus Magnesium Total Bilirubin AST ALT Alkaline Phosphatase Ammonia Total Creatine Kinase CK-MB (CK-2) CK-MB (CK-2) Rel Index Total Protein Albumin Urine WBC (Auto) Vancomycin Trough Salicylates Acetaminophen Plasma/Serum Alcohol Crossmatch 01/11/20 01/11/20 01/11/20 07:00 07:00 12:27 WBC 11.8 H RBC 3.40 L Hgb 9.4 L Hct 29.3 L MCH RDW 18.1 H Plt Count 549 H Lymph % (Auto) [place] % (Auto) 9.1 H [place] # 1.1 H Baso # Seg Neutrophils % 73.3 H Seg Neuts % (Manual) Lymphocytes % (Manual) Monocytes % (Manual) Seg Neutrophils # 8.7 H Seg Neutrophils # Man Lymphocytes # (Manual) Monocytes # (Manual) Eosinophils # (Manual) Basophils # (Manual) PT INR APTT ABG pH ABG pO2 ABG HCO3 ABG O2 Saturation ABG Base Excess ABG Hemoglobin Oxyhemoglobin Sodium 134 L Potassium Chloride 97.7 L Carbon Dioxide 21 L BUN 38 H Creatinine 0.5 L Glucose 168 H POC Glucose 117 H Lactic Acid Calcium 10.5 H Ionized Calcium Phosphorus Magnesium Total Bilirubin AST ALT Alkaline Phosphatase Ammonia Total Creatine Kinase CK-MB (CK-2) CK-MB (CK-2) Rel Index Total Protein Albumin Urine WBC (Auto) Vancomycin Trough Salicylates Acetaminophen Plasma/Serum Alcohol Crossmatch 01/11/20 01/12/20 01/12/20 18:19 00:53 05:24 WBC RBC Hgb Hct MCH RDW Plt Count Lymph % (Auto) [place] % (Auto) [place] # Baso # Seg Neutrophils % Seg Neuts % (Manual) Lymphocytes % (Manual) Monocytes % (Manual) Seg Neutrophils # Seg Neutrophils # Man Lymphocytes # (Manual) Monocytes # (Manual) Eosinophils # (Manual) Basophils # (Manual) PT INR APTT ABG pH ABG pO2 ABG HCO3 ABG O2 Saturation ABG Base Excess ABG Hemoglobin Oxyhemoglobin Sodium Potassium Chloride Carbon Dioxide BUN Creatinine Glucose POC Glucose 126 H 126 H 128 H Lactic Acid Calcium Ionized Calcium Phosphorus Magnesium Total Bilirubin AST ALT Alkaline Phosphatase Ammonia Total Creatine Kinase CK-MB (CK-2) CK-MB (CK-2) Rel Index Total Protein Albumin Urine WBC (Auto) Vancomycin Trough Salicylates Acetaminophen Plasma/Serum Alcohol Crossmatch 01/12/20 01/12/20 01/13/20 13:39 18:02 00:27 WBC RBC Hgb Hct MCH RDW Plt Count Lymph % (Auto) [place] % (Auto) [place] # Baso # Seg Neutrophils % Seg Neuts % (Manual) Lymphocytes % (Manual) Monocytes % (Manual) Seg Neutrophils # Seg Neutrophils # Man Lymphocytes # (Manual) Monocytes # (Manual) Eosinophils # (Manual) Basophils # (Manual) PT INR APTT ABG pH ABG pO2 ABG HCO3 ABG O2 Saturation ABG Base Excess ABG Hemoglobin Oxyhemoglobin Sodium Potassium Chloride Carbon Dioxide BUN Creatinine Glucose POC Glucose 146 H 125 H 131 H Lactic Acid Calcium Ionized Calcium Phosphorus Magnesium Total Bilirubin AST ALT Alkaline Phosphatase Ammonia Total Creatine Kinase CK-MB (CK-2) CK-MB (CK-2) Rel Index Total Protein Albumin Urine WBC (Auto) Vancomycin Trough Salicylates Acetaminophen Plasma/Serum Alcohol Crossmatch 01/13/20 01/13/20 01/13/20 05:44 11:54 17:18 WBC RBC Hgb Hct MCH RDW Plt Count Lymph % (Auto) [place] % (Auto) [place] # Baso # Seg Neutrophils % Seg Neuts % (Manual) Lymphocytes % (Manual) Monocytes % (Manual) Seg Neutrophils # Seg Neutrophils # Man Lymphocytes # (Manual) Monocytes # (Manual) Eosinophils # (Manual) Basophils # (Manual) PT INR APTT ABG pH ABG pO2 ABG HCO3 ABG O2 Saturation ABG Base Excess ABG Hemoglobin Oxyhemoglobin Sodium Potassium Chloride Carbon Dioxide BUN Creatinine Glucose POC Glucose 148 H 140 H 130 H Lactic Acid Calcium Ionized Calcium Phosphorus Magnesium Total Bilirubin AST ALT Alkaline Phosphatase Ammonia Total Creatine Kinase CK-MB (CK-2) CK-MB (CK-2) Rel Index Total Protein Albumin Urine WBC (Auto) Vancomycin Trough Salicylates Acetaminophen Plasma/Serum Alcohol Crossmatch 01/14/20 01/14/20 01/14/20 00:16 05:45 12:19 WBC RBC Hgb Hct MCH RDW Plt Count Lymph % (Auto) [place] % (Auto) [place] # Baso # Seg Neutrophils % Seg Neuts % (Manual) Lymphocytes % (Manual) Monocytes % (Manual) Seg Neutrophils # Seg Neutrophils # Man Lymphocytes # (Manual) Monocytes # (Manual) Eosinophils # (Manual) Basophils # (Manual) PT INR APTT ABG pH ABG pO2 ABG HCO3 ABG O2 Saturation ABG Base Excess ABG Hemoglobin Oxyhemoglobin Sodium Potassium Chloride Carbon Dioxide BUN Creatinine Glucose POC Glucose 125 H 146 H 147 H Lactic Acid Calcium Ionized Calcium Phosphorus Magnesium Total Bilirubin AST ALT Alkaline Phosphatase Ammonia Total Creatine Kinase CK-MB (CK-2) CK-MB (CK-2) Rel Index Total Protein Albumin Urine WBC (Auto) Vancomycin Trough Salicylates Acetaminophen Plasma/Serum Alcohol Crossmatch 01/14/20 01/14/20 01/15/20 18:10 23:54 05:14 WBC RBC Hgb Hct MCH RDW Plt Count Lymph % (Auto) [place] % (Auto) [place] # Baso # Seg Neutrophils % Seg Neuts % (Manual) Lymphocytes % (Manual) Monocytes % (Manual) Seg Neutrophils # Seg Neutrophils # Man Lymphocytes # (Manual) Monocytes # (Manual) Eosinophils # (Manual) Basophils # (Manual) PT INR APTT ABG pH ABG pO2 ABG HCO3 ABG O2 Saturation ABG Base Excess ABG Hemoglobin Oxyhemoglobin Sodium Potassium Chloride Carbon Dioxide BUN Creatinine Glucose POC Glucose 136 H 109 H 111 H Lactic Acid Calcium Ionized Calcium Phosphorus Magnesium Total Bilirubin AST ALT Alkaline Phosphatase Ammonia Total Creatine Kinase CK-MB (CK-2) CK-MB (CK-2) Rel Index Total Protein Albumin Urine WBC (Auto) Vancomycin Trough Salicylates Acetaminophen Plasma/Serum Alcohol Crossmatch 01/15/20 01/15/20 01/16/20 12:34 23:25 05:06 WBC RBC Hgb Hct MCH RDW Plt Count Lymph % (Auto) [place] % (Auto) [place] # Baso # Seg Neutrophils % Seg Neuts % (Manual) Lymphocytes % (Manual) Monocytes % (Manual) Seg Neutrophils # Seg Neutrophils # Man Lymphocytes # (Manual) Monocytes # (Manual) Eosinophils # (Manual) Basophils # (Manual) PT INR APTT ABG pH ABG pO2 ABG HCO3 ABG O2 Saturation ABG Base Excess ABG Hemoglobin Oxyhemoglobin Sodium Potassium Chloride Carbon Dioxide BUN Creatinine Glucose POC Glucose 131 H 120 H 121 H Lactic Acid Calcium Ionized Calcium Phosphorus Magnesium Total Bilirubin AST ALT Alkaline Phosphatase Ammonia Total Creatine Kinase CK-MB (CK-2) CK-MB (CK-2) Rel Index Total Protein Albumin Urine WBC (Auto) Vancomycin Trough Salicylates Acetaminophen Plasma/Serum Alcohol Crossmatch 01/16/20 01/16/20 01/17/20 12:15 23:46 05:32 WBC 13.6 H RBC 3.27 L Hgb 9.3 L Hct 28.5 L MCH RDW 17.0 H Plt Count 490 H Lymph % (Auto) 13.1 L [place] % (Auto) [place] # 1.0 H Baso # Seg Neutrophils % 77.5 H Seg Neuts % (Manual) Lymphocytes % (Manual) Monocytes % (Manual) Seg Neutrophils # 10.5 H Seg Neutrophils # Man Lymphocytes # (Manual) Monocytes # (Manual) Eosinophils # (Manual) Basophils # (Manual) PT INR APTT ABG pH ABG pO2 ABG HCO3 ABG O2 Saturation ABG Base Excess ABG Hemoglobin Oxyhemoglobin Sodium Potassium Chloride Carbon Dioxide BUN Creatinine Glucose POC Glucose 152 H 107 H Lactic Acid Calcium Ionized Calcium Phosphorus Magnesium Total Bilirubin AST ALT Alkaline Phosphatase Ammonia Total Creatine Kinase CK-MB (CK-2) CK-MB (CK-2) Rel Index Total Protein Albumin Urine WBC (Auto) Vancomycin Trough Salicylates Acetaminophen Plasma/Serum Alcohol Crossmatch 01/17/20 01/17/20 01/17/20 06:47 12:16 17:21 WBC RBC Hgb Hct MCH RDW Plt Count Lymph % (Auto) [place] % (Auto) [place] # Baso # Seg Neutrophils % Seg Neuts % (Manual) Lymphocytes % (Manual) Monocytes % (Manual) Seg Neutrophils # Seg Neutrophils # Man Lymphocytes # (Manual) Monocytes # (Manual) Eosinophils # (Manual) Basophils # (Manual) PT INR APTT ABG pH ABG pO2 ABG HCO3 ABG O2 Saturation ABG Base Excess ABG Hemoglobin Oxyhemoglobin Sodium Potassium Chloride Carbon Dioxide BUN Creatinine Glucose POC Glucose 112 H 145 H 150 H Lactic Acid Calcium Ionized Calcium Phosphorus Magnesium Total Bilirubin AST ALT Alkaline Phosphatase Ammonia Total Creatine Kinase CK-MB (CK-2) CK-MB (CK-2) Rel Index Total Protein Albumin Urine WBC (Auto) Vancomycin Trough Salicylates Acetaminophen Plasma/Serum Alcohol Crossmatch 01/17/20 01/18/20 01/18/20 23:34 05:47 12:43 WBC RBC Hgb Hct MCH RDW Plt Count Lymph % (Auto) [place] % (Auto) [place] # Baso # Seg Neutrophils % Seg Neuts % (Manual) Lymphocytes % (Manual) Monocytes % (Manual) Seg Neutrophils # Seg Neutrophils # Man Lymphocytes # (Manual) Monocytes # (Manual) Eosinophils # (Manual) Basophils # (Manual) PT INR APTT ABG pH ABG pO2 ABG HCO3 ABG O2 Saturation ABG Base Excess ABG Hemoglobin Oxyhemoglobin Sodium Potassium Chloride Carbon Dioxide BUN Creatinine Glucose POC Glucose 160 H 130 H 124 H Lactic Acid Calcium Ionized Calcium Phosphorus Magnesium Total Bilirubin AST ALT Alkaline Phosphatase Ammonia Total Creatine Kinase CK-MB (CK-2) CK-MB (CK-2) Rel Index Total Protein Albumin Urine WBC (Auto) Vancomycin Trough Salicylates Acetaminophen Plasma/Serum Alcohol Crossmatch 01/18/20 01/19/20 01/19/20 18:26 00:14 06:24 WBC RBC Hgb Hct MCH RDW Plt Count Lymph % (Auto) [place] % (Auto) [place] # Baso # Seg Neutrophils % Seg Neuts % (Manual) Lymphocytes % (Manual) Monocytes % (Manual) Seg Neutrophils # Seg Neutrophils # Man Lymphocytes # (Manual) Monocytes # (Manual) Eosinophils # (Manual) Basophils # (Manual) PT INR APTT ABG pH ABG pO2 ABG HCO3 ABG O2 Saturation ABG Base Excess ABG Hemoglobin Oxyhemoglobin Sodium Potassium Chloride Carbon Dioxide BUN Creatinine Glucose POC Glucose 119 H 114 H 144 H Lactic Acid Calcium Ionized Calcium Phosphorus Magnesium Total Bilirubin AST ALT Alkaline Phosphatase Ammonia Total Creatine Kinase CK-MB (CK-2) CK-MB (CK-2) Rel Index Total Protein Albumin Urine WBC (Auto) Vancomycin Trough Salicylates Acetaminophen Plasma/Serum Alcohol Crossmatch 01/19/20 01/19/20 01/20/20 12:24 17:50 12:06 WBC RBC Hgb Hct MCH RDW Plt Count Lymph % (Auto) [place] % (Auto) [place] # Baso # Seg Neutrophils % Seg Neuts % (Manual) Lymphocytes % (Manual) Monocytes % (Manual) Seg Neutrophils # Seg Neutrophils # Man Lymphocytes # (Manual) Monocytes # (Manual) Eosinophils # (Manual) Basophils # (Manual) PT INR APTT ABG pH ABG pO2 ABG HCO3 ABG O2 Saturation ABG Base Excess ABG Hemoglobin Oxyhemoglobin Sodium Potassium Chloride Carbon Dioxide BUN Creatinine Glucose POC Glucose 132 H 144 H 135 H Lactic Acid Calcium Ionized Calcium Phosphorus Magnesium Total Bilirubin AST ALT Alkaline Phosphatase Ammonia Total Creatine Kinase CK-MB (CK-2) CK-MB (CK-2) Rel Index Total Protein Albumin Urine WBC (Auto) Vancomycin Trough Salicylates Acetaminophen Plasma/Serum Alcohol Crossmatch 01/21/20 01/21/20 01/21/20 05:46 13:02 23:49 WBC RBC Hgb Hct MCH RDW Plt Count Lymph % (Auto) [place] % (Auto) [place] # Baso # Seg Neutrophils % Seg Neuts % (Manual) Lymphocytes % (Manual) Monocytes % (Manual) Seg Neutrophils # Seg Neutrophils # Man Lymphocytes # (Manual) Monocytes # (Manual) Eosinophils # (Manual) Basophils # (Manual) PT INR APTT ABG pH ABG pO2 ABG HCO3 ABG O2 Saturation ABG Base Excess ABG Hemoglobin Oxyhemoglobin Sodium Potassium Chloride Carbon Dioxide BUN Creatinine Glucose POC Glucose 114 H 136 H 120 H Lactic Acid Calcium Ionized Calcium Phosphorus Magnesium Total Bilirubin AST ALT Alkaline Phosphatase Ammonia Total Creatine Kinase CK-MB (CK-2) CK-MB (CK-2) Rel Index Total Protein Albumin Urine WBC (Auto) Vancomycin Trough Salicylates Acetaminophen Plasma/Serum Alcohol Crossmatch 01/22/20 01/22/20 01/22/20 05:41 11:44 16:31 WBC RBC Hgb Hct MCH RDW Plt Count Lymph % (Auto) [place] % (Auto) [place] # Baso # Seg Neutrophils % Seg Neuts % (Manual) Lymphocytes % (Manual) Monocytes % (Manual) Seg Neutrophils # Seg Neutrophils # Man Lymphocytes # (Manual) Monocytes # (Manual) Eosinophils # (Manual) Basophils # (Manual) PT INR APTT ABG pH ABG pO2 ABG HCO3 ABG O2 Saturation ABG Base Excess ABG Hemoglobin Oxyhemoglobin Sodium Potassium Chloride Carbon Dioxide BUN Creatinine Glucose POC Glucose 124 H 173 H 111 H Lactic Acid Calcium Ionized Calcium Phosphorus Magnesium Total Bilirubin AST ALT Alkaline Phosphatase Ammonia Total Creatine Kinase CK-MB (CK-2) CK-MB (CK-2) Rel Index Total Protein Albumin Urine WBC (Auto) Vancomycin Trough Salicylates Acetaminophen Plasma/Serum Alcohol Crossmatch 01/22/20 01/23/20 01/23/20 23:25 05:15 12:15 WBC RBC Hgb Hct MCH RDW Plt Count Lymph % (Auto) [place] % (Auto) [place] # Baso # Seg Neutrophils % Seg Neuts % (Manual) Lymphocytes % (Manual) Monocytes % (Manual) Seg Neutrophils # Seg Neutrophils # Man Lymphocytes # (Manual) Monocytes # (Manual) Eosinophils # (Manual) Basophils # (Manual) PT INR APTT ABG pH ABG pO2 ABG HCO3 ABG O2 Saturation ABG Base Excess ABG Hemoglobin Oxyhemoglobin Sodium Potassium Chloride Carbon Dioxide BUN Creatinine Glucose POC Glucose 134 H 117 H 129 H Lactic Acid Calcium Ionized Calcium Phosphorus Magnesium Total Bilirubin AST ALT Alkaline Phosphatase Ammonia Total Creatine Kinase CK-MB (CK-2) CK-MB (CK-2) Rel Index Total Protein Albumin Urine WBC (Auto) Vancomycin Trough Salicylates Acetaminophen Plasma/Serum Alcohol Crossmatch 01/23/20 01/23/20 01/23/20 16:58 21:17 23:47 WBC RBC Hgb Hct MCH RDW Plt Count Lymph % (Auto) [place] % (Auto) [place] # Baso # Seg Neutrophils % Seg Neuts % (Manual) Lymphocytes % (Manual) Monocytes % (Manual) Seg Neutrophils # Seg Neutrophils # Man Lymphocytes # (Manual) Monocytes # (Manual) Eosinophils # (Manual) Basophils # (Manual) PT INR APTT ABG pH ABG pO2 ABG HCO3 ABG O2 Saturation ABG Base Excess ABG Hemoglobin Oxyhemoglobin Sodium Potassium Chloride Carbon Dioxide BUN Creatinine Glucose POC Glucose 156 H 185 H 156 H Lactic Acid Calcium Ionized Calcium Phosphorus Magnesium Total Bilirubin AST ALT Alkaline Phosphatase Ammonia Total Creatine Kinase CK-MB (CK-2) CK-MB (CK-2) Rel Index Total Protein Albumin Urine WBC (Auto) Vancomycin Trough Salicylates Acetaminophen Plasma/Serum Alcohol Crossmatch 01/24/20 01/24/20 01/24/20 04:47 04:47 05:59 WBC 17.8 H RBC 3.60 L Hgb Hct MCH RDW 16.2 H Plt Count 688 H Lymph % (Auto) 11.8 L [place] % (Auto) 7.5 H [place] # 1.3 H Baso # Seg Neutrophils % 79.9 H Seg Neuts % (Manual) Lymphocytes % (Manual) Monocytes % (Manual) Seg Neutrophils # 14.2 H Seg Neutrophils # Man Lymphocytes # (Manual) Monocytes # (Manual) Eosinophils # (Manual) Basophils # (Manual) PT INR APTT ABG pH ABG pO2 ABG HCO3 ABG O2 Saturation ABG Base Excess ABG Hemoglobin Oxyhemoglobin Sodium 131 L Potassium Chloride 91.2 L Carbon Dioxide BUN 22 H Creatinine 0.3 L Glucose 123 H POC Glucose 147 H Lactic Acid Calcium 10.9 H Ionized Calcium Phosphorus Magnesium Total Bilirubin AST ALT Alkaline Phosphatase Ammonia Total Creatine Kinase CK-MB (CK-2) CK-MB (CK-2) Rel Index Total Protein Albumin Urine WBC (Auto) Vancomycin Trough Salicylates Acetaminophen Plasma/Serum Alcohol Crossmatch 01/24/20 01/24/20 01/25/20 11:47 16:45 00:18 WBC RBC Hgb Hct MCH RDW Plt Count Lymph % (Auto) [place] % (Auto) [place] # Baso # Seg Neutrophils % Seg Neuts % (Manual) Lymphocytes % (Manual) Monocytes % (Manual) Seg Neutrophils # Seg Neutrophils # Man Lymphocytes # (Manual) Monocytes # (Manual) Eosinophils # (Manual) Basophils # (Manual) PT INR APTT ABG pH ABG pO2 ABG HCO3 ABG O2 Saturation ABG Base Excess ABG Hemoglobin Oxyhemoglobin Sodium Potassium Chloride Carbon Dioxide BUN Creatinine Glucose POC Glucose 114 H 108 H 119 H Lactic Acid Calcium Ionized Calcium Phosphorus Magnesium Total Bilirubin AST ALT Alkaline Phosphatase Ammonia Total Creatine Kinase CK-MB (CK-2) CK-MB (CK-2) Rel Index Total Protein Albumin Urine WBC (Auto) Vancomycin Trough Salicylates Acetaminophen Plasma/Serum Alcohol Crossmatch 01/25/20 01/25/20 01/25/20 07:18 11:58 16:56 WBC RBC Hgb Hct MCH RDW Plt Count Lymph % (Auto) [place] % (Auto) [place] # Baso # Seg Neutrophils % Seg Neuts % (Manual) Lymphocytes % (Manual) Monocytes % (Manual) Seg Neutrophils # Seg Neutrophils # Man Lymphocytes # (Manual) Monocytes # (Manual) Eosinophils # (Manual) Basophils # (Manual) PT INR APTT ABG pH ABG pO2 ABG HCO3 ABG O2 Saturation ABG Base Excess ABG Hemoglobin Oxyhemoglobin Sodium Potassium Chloride Carbon Dioxide BUN Creatinine Glucose POC Glucose 136 H 136 H 147 H Lactic Acid Calcium Ionized Calcium Phosphorus Magnesium Total Bilirubin AST ALT Alkaline Phosphatase Ammonia Total Creatine Kinase CK-MB (CK-2) CK-MB (CK-2) Rel Index Total Protein Albumin Urine WBC (Auto) Vancomycin Trough Salicylates Acetaminophen Plasma/Serum Alcohol Crossmatch 01/26/20 01/26/20 01/26/20 00:29 05:59 05:59 WBC 12.8 H RBC Hgb Hct MCH RDW 16.4 H Plt Count 743 H Lymph % (Auto) [place] % (Auto) [place] # 0.9 H Baso # Seg Neutrophils % 76.2 H Seg Neuts % (Manual) Lymphocytes % (Manual) Monocytes % (Manual) Seg Neutrophils # 9.8 H Seg Neutrophils # Man Lymphocytes # (Manual) Monocytes # (Manual) Eosinophils # (Manual) Basophils # (Manual) PT INR APTT ABG pH ABG pO2 ABG HCO3 ABG O2 Saturation ABG Base Excess ABG Hemoglobin Oxyhemoglobin Sodium 132 L Potassium Chloride 90.9 L Carbon Dioxide BUN 23 H Creatinine 0.4 L Glucose 122 H POC Glucose 107 H Lactic Acid Calcium 11.0 H Ionized Calcium Phosphorus Magnesium Total Bilirubin AST ALT Alkaline Phosphatase Ammonia Total Creatine Kinase CK-MB (CK-2) CK-MB (CK-2) Rel Index Total Protein Albumin Urine WBC (Auto) Vancomycin Trough Salicylates Acetaminophen Plasma/Serum Alcohol Crossmatch 05/09/20 05/09/20 05/09/20 06:27 12:06 16:49 WBC RBC Hgb Hct MCH RDW Plt Count Lymph % (Auto) [place] % (Auto) [place] # Baso # Seg Neutrophils % Seg Neuts % (Manual) Lymphocytes % (Manual) Monocytes % (Manual) Seg Neutrophils # Seg Neutrophils # Man Lymphocytes # (Manual) Monocytes # (Manual) Eosinophils # (Manual) Basophils # (Manual) PT INR APTT ABG pH ABG pO2 ABG HCO3 ABG O2 Saturation ABG Base Excess ABG Hemoglobin Oxyhemoglobin Sodium Potassium Chloride Carbon Dioxide BUN Creatinine Glucose POC Glucose 132 H 132 H 110 H Lactic Acid Calcium Ionized Calcium Phosphorus Magnesium Total Bilirubin AST ALT Alkaline Phosphatase Ammonia Total Creatine Kinase CK-MB (CK-2) CK-MB (CK-2) Rel Index Total Protein Albumin Urine WBC (Auto) Vancomycin Trough Salicylates Acetaminophen Plasma/Serum Alcohol Crossmatch 01/27/20 01/27/20 01/27/20 00:08 11:49 16:24 WBC RBC Hgb Hct MCH RDW Plt Count Lymph % (Auto) [place] % (Auto) [place] # Baso # Seg Neutrophils % Seg Neuts % (Manual) Lymphocytes % (Manual) Monocytes % (Manual) Seg Neutrophils # Seg Neutrophils # Man Lymphocytes # (Manual) Monocytes # (Manual) Eosinophils # (Manual) Basophils # (Manual) PT INR APTT ABG pH ABG pO2 ABG HCO3 ABG O2 Saturation ABG Base Excess ABG Hemoglobin Oxyhemoglobin Sodium Potassium Chloride Carbon Dioxide BUN Creatinine Glucose POC Glucose 107 H 119 H 129 H Lactic Acid Calcium Ionized Calcium Phosphorus Magnesium Total Bilirubin AST ALT Alkaline Phosphatase Ammonia Total Creatine Kinase CK-MB (CK-2) CK-MB (CK-2) Rel Index Total Protein Albumin Urine WBC (Auto) Vancomycin Trough Salicylates Acetaminophen Plasma/Serum Alcohol Crossmatch 01/27/20 01/28/20 01/28/20 18:28 01:00 06:22 WBC RBC Hgb Hct MCH RDW Plt Count Lymph % (Auto) [place] % (Auto) [place] # Baso # Seg Neutrophils % Seg Neuts % (Manual) Lymphocytes % (Manual) Monocytes % (Manual) Seg Neutrophils # Seg Neutrophils # Man Lymphocytes # (Manual) Monocytes # (Manual) Eosinophils # (Manual) Basophils # (Manual) PT INR APTT ABG pH ABG pO2 ABG HCO3 ABG O2 Saturation ABG Base Excess ABG Hemoglobin Oxyhemoglobin Sodium Potassium Chloride Carbon Dioxide BUN Creatinine Glucose POC Glucose 126 H 121 H 114 H Lactic Acid Calcium Ionized Calcium Phosphorus Magnesium Total Bilirubin AST ALT Alkaline Phosphatase Ammonia Total Creatine Kinase CK-MB (CK-2) CK-MB (CK-2) Rel Index Total Protein Albumin Urine WBC (Auto) Vancomycin Trough Salicylates Acetaminophen Plasma/Serum Alcohol Crossmatch 01/28/20 01/28/20 01/29/20 11:47 18:00 00:05 WBC RBC Hgb Hct MCH RDW Plt Count Lymph % (Auto) [place] % (Auto) [place] # Baso # Seg Neutrophils % Seg Neuts % (Manual) Lymphocytes % (Manual) Monocytes % (Manual) Seg Neutrophils # Seg Neutrophils # Man Lymphocytes # (Manual) Monocytes # (Manual) Eosinophils # (Manual) Basophils # (Manual) PT INR APTT ABG pH ABG pO2 ABG HCO3 ABG O2 Saturation ABG Base Excess ABG Hemoglobin Oxyhemoglobin Sodium Potassium Chloride Carbon Dioxide BUN Creatinine Glucose POC Glucose 106 H 117 H 127 H Lactic Acid Calcium Ionized Calcium Phosphorus Magnesium Total Bilirubin AST ALT Alkaline Phosphatase Ammonia Total Creatine Kinase CK-MB (CK-2) CK-MB (CK-2) Rel Index Total Protein Albumin Urine WBC (Auto) Vancomycin Trough Salicylates Acetaminophen Plasma/Serum Alcohol Crossmatch 01/29/20 01/29/20 01/29/20 06:04 11:40 16:38 WBC RBC Hgb Hct MCH RDW Plt Count Lymph % (Auto) [place] % (Auto) [place] # Baso # Seg Neutrophils % Seg Neuts % (Manual) Lymphocytes % (Manual) Monocytes % (Manual) Seg Neutrophils # Seg Neutrophils # Man Lymphocytes # (Manual) Monocytes # (Manual) Eosinophils # (Manual) Basophils # (Manual) PT INR APTT ABG pH ABG pO2 ABG HCO3 ABG O2 Saturation ABG Base Excess ABG Hemoglobin Oxyhemoglobin Sodium Potassium Chloride Carbon Dioxide BUN Creatinine Glucose POC Glucose 147 H 139 H 143 H Lactic Acid Calcium Ionized Calcium Phosphorus Magnesium Total Bilirubin AST ALT Alkaline Phosphatase Ammonia Total Creatine Kinase CK-MB (CK-2) CK-MB (CK-2) Rel Index Total Protein Albumin Urine WBC (Auto) Vancomycin Trough Salicylates Acetaminophen Plasma/Serum Alcohol Crossmatch 01/29/20 01/30/20 01/30/20 23:46 06:43 12:07 WBC RBC Hgb Hct MCH RDW Plt Count Lymph % (Auto) [place] % (Auto) [place] # Baso # Seg Neutrophils % Seg Neuts % (Manual) Lymphocytes % (Manual) Monocytes % (Manual) Seg Neutrophils # Seg Neutrophils # Man Lymphocytes # (Manual) Monocytes # (Manual) Eosinophils # (Manual) Basophils # (Manual) PT INR APTT ABG pH ABG pO2 ABG HCO3 ABG O2 Saturation ABG Base Excess ABG Hemoglobin Oxyhemoglobin Sodium Potassium Chloride Carbon Dioxide BUN Creatinine Glucose POC Glucose 122 H 122 H 134 H Lactic Acid Calcium Ionized Calcium Phosphorus Magnesium Total Bilirubin AST ALT Alkaline Phosphatase Ammonia Total Creatine Kinase CK-MB (CK-2) CK-MB (CK-2) Rel Index Total Protein Albumin Urine WBC (Auto) Vancomycin Trough Salicylates Acetaminophen Plasma/Serum Alcohol Crossmatch 01/30/20 01/31/20 01/31/20 17:59 00:52 05:54 WBC RBC Hgb Hct MCH RDW Plt Count Lymph % (Auto) [place] % (Auto) [place] # Baso # Seg Neutrophils % Seg Neuts % (Manual) Lymphocytes % (Manual) Monocytes % (Manual) Seg Neutrophils # Seg Neutrophils # Man Lymphocytes # (Manual) Monocytes # (Manual) Eosinophils # (Manual) Basophils # (Manual) PT INR APTT ABG pH ABG pO2 ABG HCO3 ABG O2 Saturation ABG Base Excess ABG Hemoglobin Oxyhemoglobin Sodium Potassium Chloride Carbon Dioxide BUN Creatinine Glucose POC Glucose 116 H 127 H 127 H Lactic Acid Calcium Ionized Calcium Phosphorus Magnesium Total Bilirubin AST ALT Alkaline Phosphatase Ammonia Total Creatine Kinase CK-MB (CK-2) CK-MB (CK-2) Rel Index Total Protein Albumin Urine WBC (Auto) Vancomycin Trough Salicylates Acetaminophen Plasma/Serum Alcohol Crossmatch 01/31/20 02/01/20 02/01/20 12:20 00:48 12:21 WBC RBC Hgb Hct MCH RDW Plt Count Lymph % (Auto) [place] % (Auto) [place] # Baso # Seg Neutrophils % Seg Neuts % (Manual) Lymphocytes % (Manual) Monocytes % (Manual) Seg Neutrophils # Seg Neutrophils # Man Lymphocytes # (Manual) Monocytes # (Manual) Eosinophils # (Manual) Basophils # (Manual) PT INR APTT ABG pH ABG pO2 ABG HCO3 ABG O2 Saturation ABG Base Excess ABG Hemoglobin Oxyhemoglobin Sodium Potassium Chloride Carbon Dioxide BUN Creatinine Glucose POC Glucose 126 H 154 H 123 H Lactic Acid Calcium Ionized Calcium Phosphorus Magnesium Total Bilirubin AST ALT Alkaline Phosphatase Ammonia Total Creatine Kinase CK-MB (CK-2) CK-MB (CK-2) Rel Index Total Protein Albumin Urine WBC (Auto) Vancomycin Trough Salicylates Acetaminophen Plasma/Serum Alcohol Crossmatch 02/01/20 02/02/20 02/02/20 23:58 06:08 11:50 WBC RBC Hgb Hct MCH RDW Plt Count Lymph % (Auto) [place] % (Auto) [place] # Baso # Seg Neutrophils % Seg Neuts % (Manual) Lymphocytes % (Manual) Monocytes % (Manual) Seg Neutrophils # Seg Neutrophils # Man Lymphocytes # (Manual) Monocytes # (Manual) Eosinophils # (Manual) Basophils # (Manual) PT INR APTT ABG pH ABG pO2 ABG HCO3 ABG O2 Saturation ABG Base Excess ABG Hemoglobin Oxyhemoglobin Sodium Potassium Chloride Carbon Dioxide BUN Creatinine Glucose POC Glucose 125 H 144 H 131 H Lactic Acid Calcium Ionized Calcium Phosphorus Magnesium Total Bilirubin AST ALT Alkaline Phosphatase Ammonia Total Creatine Kinase CK-MB (CK-2) CK-MB (CK-2) Rel Index Total Protein Albumin Urine WBC (Auto) Vancomycin Trough Salicylates Acetaminophen Plasma/Serum Alcohol Crossmatch 02/02/20 02/03/20 02/03/20 17:53 00:14 05:47 WBC RBC Hgb Hct MCH RDW Plt Count Lymph % (Auto) [place] % (Auto) [place] # Baso # Seg Neutrophils % Seg Neuts % (Manual) Lymphocytes % (Manual) Monocytes % (Manual) Seg Neutrophils # Seg Neutrophils # Man Lymphocytes # (Manual) Monocytes # (Manual) Eosinophils # (Manual) Basophils # (Manual) PT INR APTT ABG pH ABG pO2 ABG HCO3 ABG O2 Saturation ABG Base Excess ABG Hemoglobin Oxyhemoglobin Sodium Potassium Chloride Carbon Dioxide BUN Creatinine Glucose POC Glucose 108 H 122 H 118 H Lactic Acid Calcium Ionized Calcium Phosphorus Magnesium Total Bilirubin AST ALT Alkaline Phosphatase Ammonia Total Creatine Kinase CK-MB (CK-2) CK-MB (CK-2) Rel Index Total Protein Albumin Urine WBC (Auto) Vancomycin Trough Salicylates Acetaminophen Plasma/Serum Alcohol Crossmatch 02/03/20 02/03/20 02/03/20 05:59 05:59 11:49 WBC RBC 3.48 L Hgb Hct 29.9 L MCH RDW 16.2 H Plt Count 707 H Lymph % (Auto) [place] % (Auto) 9.3 H [place] # 0.9 H Baso # Seg Neutrophils % Seg Neuts % (Manual) Lymphocytes % (Manual) Monocytes % (Manual) Seg Neutrophils # Seg Neutrophils # Man Lymphocytes # (Manual) Monocytes # (Manual) Eosinophils # (Manual) Basophils # (Manual) PT INR APTT ABG pH ABG pO2 ABG HCO3 ABG O2 Saturation ABG Base Excess ABG Hemoglobin Oxyhemoglobin Sodium 136 L Potassium Chloride 93.4 L Carbon Dioxide BUN 20 H Creatinine 0.5 L Glucose 101 H POC Glucose 133 H Lactic Acid Calcium 10.8 H Ionized Calcium Phosphorus Magnesium Total Bilirubin AST ALT Alkaline Phosphatase Ammonia Total Creatine Kinase CK-MB (CK-2) CK-MB (CK-2) Rel Index Total Protein Albumin Urine WBC (Auto) Vancomycin Trough Salicylates Acetaminophen Plasma/Serum Alcohol Crossmatch 02/03/20 02/04/20 02/04/20 23:19 05:37 23:56 WBC RBC Hgb Hct MCH RDW Plt Count Lymph % (Auto) [place] % (Auto) [place] # Baso # Seg Neutrophils % Seg Neuts % (Manual) Lymphocytes % (Manual) Monocytes % (Manual) Seg Neutrophils # Seg Neutrophils # Man Lymphocytes # (Manual) Monocytes # (Manual) Eosinophils # (Manual) Basophils # (Manual) PT INR APTT ABG pH ABG pO2 ABG HCO3 ABG O2 Saturation ABG Base Excess ABG Hemoglobin Oxyhemoglobin Sodium Potassium Chloride Carbon Dioxide BUN Creatinine Glucose POC Glucose 135 H 108 H 158 H Lactic Acid Calcium Ionized Calcium Phosphorus Magnesium Total Bilirubin AST ALT Alkaline Phosphatase Ammonia Total Creatine Kinase CK-MB (CK-2) CK-MB (CK-2) Rel Index Total Protein Albumin Urine WBC (Auto) Vancomycin Trough Salicylates Acetaminophen Plasma/Serum Alcohol Crossmatch 02/05/20 02/05/20 02/06/20 05:33 23:24 05:50 WBC RBC Hgb Hct MCH RDW Plt Count Lymph % (Auto) [place] % (Auto) [place] # Baso # Seg Neutrophils % Seg Neuts % (Manual) Lymphocytes % (Manual) Monocytes % (Manual) Seg Neutrophils # Seg Neutrophils # Man Lymphocytes # (Manual) Monocytes # (Manual) Eosinophils # (Manual) Basophils # (Manual) PT INR APTT ABG pH ABG pO2 ABG HCO3 ABG O2 Saturation ABG Base Excess ABG Hemoglobin Oxyhemoglobin Sodium Potassium Chloride Carbon Dioxide BUN Creatinine Glucose POC Glucose 152 H 158 H 110 H Lactic Acid Calcium Ionized Calcium Phosphorus Magnesium Total Bilirubin AST ALT Alkaline Phosphatase Ammonia Total Creatine Kinase CK-MB (CK-2) CK-MB (CK-2) Rel Index Total Protein Albumin Urine WBC (Auto) Vancomycin Trough Salicylates Acetaminophen Plasma/Serum Alcohol Crossmatch 02/06/20 02/07/20 02/07/20 16:03 00:13 05:27 WBC RBC Hgb Hct MCH RDW Plt Count Lymph % (Auto) [place] % (Auto) [place] # Baso # Seg Neutrophils % Seg Neuts % (Manual) Lymphocytes % (Manual) Monocytes % (Manual) Seg Neutrophils # Seg Neutrophils # Man Lymphocytes # (Manual) Monocytes # (Manual) Eosinophils # (Manual) Basophils # (Manual) PT INR APTT ABG pH ABG pO2 ABG HCO3 ABG O2 Saturation ABG Base Excess ABG Hemoglobin Oxyhemoglobin Sodium Potassium Chloride Carbon Dioxide BUN Creatinine Glucose POC Glucose 130 H 115 H 115 H Lactic Acid Calcium Ionized Calcium Phosphorus Magnesium Total Bilirubin AST ALT Alkaline Phosphatase Ammonia Total Creatine Kinase CK-MB (CK-2) CK-MB (CK-2) Rel Index Total Protein Albumin Urine WBC (Auto) Vancomycin Trough Salicylates Acetaminophen Plasma/Serum Alcohol Crossmatch 02/07/20 02/07/20 02/08/20 11:42 17:23 00:37 WBC RBC Hgb Hct MCH RDW Plt Count Lymph % (Auto) [place] % (Auto) [place] # Baso # Seg Neutrophils % Seg Neuts % (Manual) Lymphocytes % (Manual) Monocytes % (Manual) Seg Neutrophils # Seg Neutrophils # Man Lymphocytes # (Manual) Monocytes # (Manual) Eosinophils # (Manual) Basophils # (Manual) PT INR APTT ABG pH ABG pO2 ABG HCO3 ABG O2 Saturation ABG Base Excess ABG Hemoglobin Oxyhemoglobin Sodium Potassium Chloride Carbon Dioxide BUN Creatinine Glucose POC Glucose 113 H 114 H 136 H Lactic Acid Calcium Ionized Calcium Phosphorus Magnesium Total Bilirubin AST ALT Alkaline Phosphatase Ammonia Total Creatine Kinase CK-MB (CK-2) CK-MB (CK-2) Rel Index Total Protein Albumin Urine WBC (Auto) Vancomycin Trough Salicylates Acetaminophen Plasma/Serum Alcohol Crossmatch 02/08/20 02/08/20 02/08/20 08:52 11:42 17:02 WBC RBC Hgb Hct MCH RDW Plt Count Lymph % (Auto) [place] % (Auto) [place] # Baso # Seg Neutrophils % Seg Neuts % (Manual) Lymphocytes % (Manual) Monocytes % (Manual) Seg Neutrophils # Seg Neutrophils # Man Lymphocytes # (Manual) Monocytes # (Manual) Eosinophils # (Manual) Basophils # (Manual) PT INR APTT ABG pH ABG pO2 ABG HCO3 ABG O2 Saturation ABG Base Excess ABG Hemoglobin Oxyhemoglobin Sodium 136 L Potassium Chloride 95.7 L Carbon Dioxide BUN 21 H Creatinine 0.4 L Glucose POC Glucose 128 H 145 H Lactic Acid Calcium 10.4 H Ionized Calcium Phosphorus Magnesium Total Bilirubin AST ALT Alkaline Phosphatase Ammonia Total Creatine Kinase CK-MB (CK-2) CK-MB (CK-2) Rel Index Total Protein Albumin Urine WBC (Auto) Vancomycin Trough Salicylates Acetaminophen Plasma/Serum Alcohol Crossmatch 02/09/20 02/09/20 02/09/20 01:05 11:52 16:19 WBC RBC Hgb Hct MCH RDW Plt Count Lymph % (Auto) [place] % (Auto) [place] # Baso # Seg Neutrophils % Seg Neuts % (Manual) Lymphocytes % (Manual) Monocytes % (Manual) Seg Neutrophils # Seg Neutrophils # Man Lymphocytes # (Manual) Monocytes # (Manual) Eosinophils # (Manual) Basophils # (Manual) PT INR APTT ABG pH ABG pO2 ABG HCO3 ABG O2 Saturation ABG Base Excess ABG Hemoglobin Oxyhemoglobin Sodium Potassium Chloride Carbon Dioxide BUN Creatinine Glucose POC Glucose 117 H 141 H 113 H Lactic Acid Calcium Ionized Calcium Phosphorus Magnesium Total Bilirubin AST ALT Alkaline Phosphatase Ammonia Total Creatine Kinase CK-MB (CK-2) CK-MB (CK-2) Rel Index Total Protein Albumin Urine WBC (Auto) Vancomycin Trough Salicylates Acetaminophen Plasma/Serum Alcohol Crossmatch 02/10/20 02/10/20 02/10/20 05:25 12:50 17:08 WBC RBC Hgb Hct MCH RDW Plt Count Lymph % (Auto) [place] % (Auto) [place] # Baso # Seg Neutrophils % Seg Neuts % (Manual) Lymphocytes % (Manual) Monocytes % (Manual) Seg Neutrophils # Seg Neutrophils # Man Lymphocytes # (Manual) Monocytes # (Manual) Eosinophils # (Manual) Basophils # (Manual) PT INR APTT ABG pH ABG pO2 ABG HCO3 ABG O2 Saturation ABG Base Excess ABG Hemoglobin Oxyhemoglobin Sodium Potassium Chloride Carbon Dioxide BUN Creatinine Glucose POC Glucose 136 H 127 H 111 H Lactic Acid Calcium Ionized Calcium Phosphorus Magnesium Total Bilirubin AST ALT Alkaline Phosphatase Ammonia Total Creatine Kinase CK-MB (CK-2) CK-MB (CK-2) Rel Index Total Protein Albumin Urine WBC (Auto) Vancomycin Trough Salicylates Acetaminophen Plasma/Serum Alcohol Crossmatch 02/10/20 02/11/20 02/11/20 23:55 06:11 12:07 WBC RBC Hgb Hct MCH RDW Plt Count Lymph % (Auto) [place] % (Auto) [place] # Baso # Seg Neutrophils % Seg Neuts % (Manual) Lymphocytes % (Manual) Monocytes % (Manual) Seg Neutrophils # Seg Neutrophils # Man Lymphocytes # (Manual) Monocytes # (Manual) Eosinophils # (Manual) Basophils # (Manual) PT INR APTT ABG pH ABG pO2 ABG HCO3 ABG O2 Saturation ABG Base Excess ABG Hemoglobin Oxyhemoglobin Sodium Potassium Chloride Carbon Dioxide BUN Creatinine Glucose POC Glucose 129 H 128 H 141 H Lactic Acid Calcium Ionized Calcium Phosphorus Magnesium Total Bilirubin AST ALT Alkaline Phosphatase Ammonia Total Creatine Kinase CK-MB (CK-2) CK-MB (CK-2) Rel Index Total Protein Albumin Urine WBC (Auto) Vancomycin Trough Salicylates Acetaminophen Plasma/Serum Alcohol Crossmatch 02/11/20 02/12/20 02/13/20 18:22 02:39 06:45 WBC RBC Hgb Hct MCH RDW Plt Count Lymph % (Auto) [place] % (Auto) [place] # Baso # Seg Neutrophils % Seg Neuts % (Manual) Lymphocytes % (Manual) Monocytes % (Manual) Seg Neutrophils # Seg Neutrophils # Man Lymphocytes # (Manual) Monocytes # (Manual) Eosinophils # (Manual) Basophils # (Manual) PT INR APTT ABG pH ABG pO2 ABG HCO3 ABG O2 Saturation ABG Base Excess ABG Hemoglobin Oxyhemoglobin Sodium Potassium Chloride Carbon Dioxide BUN Creatinine Glucose POC Glucose 118 H 107 H 124 H Lactic Acid Calcium Ionized Calcium Phosphorus Magnesium Total Bilirubin AST ALT Alkaline Phosphatase Ammonia Total Creatine Kinase CK-MB (CK-2) CK-MB (CK-2) Rel Index Total Protein Albumin Urine WBC (Auto) Vancomycin Trough Salicylates Acetaminophen Plasma/Serum Alcohol Crossmatch 02/13/20 02/13/20 02/14/20 12:26 18:19 00:21 WBC RBC Hgb Hct MCH RDW Plt Count Lymph % (Auto) [place] % (Auto) [place] # Baso # Seg Neutrophils % Seg Neuts % (Manual) Lymphocytes % (Manual) Monocytes % (Manual) Seg Neutrophils # Seg Neutrophils # Man Lymphocytes # (Manual) Monocytes # (Manual) Eosinophils # (Manual) Basophils # (Manual) PT INR APTT ABG pH ABG pO2 ABG HCO3 ABG O2 Saturation ABG Base Excess ABG Hemoglobin Oxyhemoglobin Sodium Potassium Chloride Carbon Dioxide BUN Creatinine Glucose POC Glucose 124 H 118 H 130 H Lactic Acid Calcium Ionized Calcium Phosphorus Magnesium Total Bilirubin AST ALT Alkaline Phosphatase Ammonia Total Creatine Kinase CK-MB (CK-2) CK-MB (CK-2) Rel Index Total Protein Albumin Urine WBC (Auto) Vancomycin Trough Salicylates Acetaminophen Plasma/Serum Alcohol Crossmatch 02/14/20 02/14/20 02/16/20 11:19 16:16 00:58 WBC RBC Hgb Hct MCH RDW Plt Count Lymph % (Auto) [place] % (Auto) [place] # Baso # Seg Neutrophils % Seg Neuts % (Manual) Lymphocytes % (Manual) Monocytes % (Manual) Seg Neutrophils # Seg Neutrophils # Man Lymphocytes # (Manual) Monocytes # (Manual) Eosinophils # (Manual) Basophils # (Manual) PT INR APTT ABG pH ABG pO2 ABG HCO3 ABG O2 Saturation ABG Base Excess ABG Hemoglobin Oxyhemoglobin Sodium Potassium Chloride Carbon Dioxide BUN Creatinine Glucose POC Glucose 135 H 119 H 121 H Lactic Acid Calcium Ionized Calcium Phosphorus Magnesium Total Bilirubin AST ALT Alkaline Phosphatase Ammonia Total Creatine Kinase CK-MB (CK-2) CK-MB (CK-2) Rel Index Total Protein Albumin Urine WBC (Auto) Vancomycin Trough Salicylates Acetaminophen Plasma/Serum Alcohol Crossmatch 02/16/20 02/16/20 02/16/20 12:12 18:22 23:51 WBC RBC Hgb Hct MCH RDW Plt Count Lymph % (Auto) [place] % (Auto) [place] # Baso # Seg Neutrophils % Seg Neuts % (Manual) Lymphocytes % (Manual) Monocytes % (Manual) Seg Neutrophils # Seg Neutrophils # Man Lymphocytes # (Manual) Monocytes # (Manual) Eosinophils # (Manual) Basophils # (Manual) PT INR APTT ABG pH ABG pO2 ABG HCO3 ABG O2 Saturation ABG Base Excess ABG Hemoglobin Oxyhemoglobin Sodium Potassium Chloride Carbon Dioxide BUN Creatinine Glucose POC Glucose 107 H 106 H 128 H Lactic Acid Calcium Ionized Calcium Phosphorus Magnesium Total Bilirubin AST ALT Alkaline Phosphatase Ammonia Total Creatine Kinase CK-MB (CK-2) CK-MB (CK-2) Rel Index Total Protein Albumin Urine WBC (Auto) Vancomycin Trough Salicylates Acetaminophen Plasma/Serum Alcohol Crossmatch 02/17/20 02/17/20 02/17/20 05:50 07:57 07:57 WBC 12.6 H RBC 3.52 L Hgb Hct MCH RDW 15.3 H Plt Count 643 H Lymph % (Auto) [place] % (Auto) 8.0 H [place] # 1.0 H Baso # Seg Neutrophils % Seg Neuts % (Manual) Lymphocytes % (Manual) Monocytes % (Manual) Seg Neutrophils # 8.5 H Seg Neutrophils # Man Lymphocytes # (Manual) Monocytes # (Manual) Eosinophils # (Manual) Basophils # (Manual) PT INR APTT ABG pH ABG pO2 ABG HCO3 ABG O2 Saturation ABG Base Excess ABG Hemoglobin Oxyhemoglobin Sodium Potassium Chloride 96.9 L Carbon Dioxide BUN 21 H Creatinine 0.4 L Glucose 113 H POC Glucose 116 H Lactic Acid Calcium 10.5 H Ionized Calcium Phosphorus Magnesium Total Bilirubin AST ALT Alkaline Phosphatase Ammonia Total Creatine Kinase CK-MB (CK-2) CK-MB (CK-2) Rel Index Total Protein Albumin Urine WBC (Auto) Vancomycin Trough Salicylates Acetaminophen Plasma/Serum Alcohol Crossmatch 02/17/20 02/17/20 02/18/20 12:05 18:16 00:13 WBC RBC Hgb Hct MCH RDW Plt Count Lymph % (Auto) [place] % (Auto) [place] # Baso # Seg Neutrophils % Seg Neuts % (Manual) Lymphocytes % (Manual) Monocytes % (Manual) Seg Neutrophils # Seg Neutrophils # Man Lymphocytes # (Manual) Monocytes # (Manual) Eosinophils # (Manual) Basophils # (Manual) PT INR APTT ABG pH ABG pO2 ABG HCO3 ABG O2 Saturation ABG Base Excess ABG Hemoglobin Oxyhemoglobin Sodium Potassium Chloride Carbon Dioxide BUN Creatinine Glucose POC Glucose 139 H 127 H 144 H Lactic Acid Calcium Ionized Calcium Phosphorus Magnesium Total Bilirubin AST ALT Alkaline Phosphatase Ammonia Total Creatine Kinase CK-MB (CK-2) CK-MB (CK-2) Rel Index Total Protein Albumin Urine WBC (Auto) Vancomycin Trough Salicylates Acetaminophen Plasma/Serum Alcohol Crossmatch 02/18/20 02/18/20 02/19/20 17:41 23:28 05:17 WBC RBC Hgb Hct MCH RDW Plt Count Lymph % (Auto) [place] % (Auto) [place] # Baso # Seg Neutrophils % Seg Neuts % (Manual) Lymphocytes % (Manual) Monocytes % (Manual) Seg Neutrophils # Seg Neutrophils # Man Lymphocytes # (Manual) Monocytes # (Manual) Eosinophils # (Manual) Basophils # (Manual) PT INR APTT ABG pH ABG pO2 ABG HCO3 ABG O2 Saturation ABG Base Excess ABG Hemoglobin Oxyhemoglobin Sodium Potassium Chloride Carbon Dioxide BUN Creatinine Glucose POC Glucose 118 H 166 H 116 H Lactic Acid Calcium Ionized Calcium Phosphorus Magnesium Total Bilirubin AST ALT Alkaline Phosphatase Ammonia Total Creatine Kinase CK-MB (CK-2) CK-MB (CK-2) Rel Index Total Protein Albumin Urine WBC (Auto) Vancomycin Trough Salicylates Acetaminophen Plasma/Serum Alcohol Crossmatch 02/19/20 02/19/20 02/20/20 12:33 17:02 00:12 WBC RBC Hgb Hct MCH RDW Plt Count Lymph % (Auto) [place] % (Auto) [place] # Baso # Seg Neutrophils % Seg Neuts % (Manual) Lymphocytes % (Manual) Monocytes % (Manual) Seg Neutrophils # Seg Neutrophils # Man Lymphocytes # (Manual) Monocytes # (Manual) Eosinophils # (Manual) Basophils # (Manual) PT INR APTT ABG pH ABG pO2 ABG HCO3 ABG O2 Saturation ABG Base Excess ABG Hemoglobin Oxyhemoglobin Sodium Potassium Chloride Carbon Dioxide BUN Creatinine Glucose POC Glucose 115 H 108 H 153 H Lactic Acid Calcium Ionized Calcium Phosphorus Magnesium Total Bilirubin AST ALT Alkaline Phosphatase Ammonia Total Creatine Kinase CK-MB (CK-2) CK-MB (CK-2) Rel Index Total Protein Albumin Urine WBC (Auto) Vancomycin Trough Salicylates Acetaminophen Plasma/Serum Alcohol Crossmatch 02/20/20 02/20/20 02/21/20 12:00 23:13 05:07 WBC RBC Hgb Hct MCH RDW Plt Count Lymph % (Auto) [place] % (Auto) [place] # Baso # Seg Neutrophils % Seg Neuts % (Manual) Lymphocytes % (Manual) Monocytes % (Manual) Seg Neutrophils # Seg Neutrophils # Man Lymphocytes # (Manual) Monocytes # (Manual) Eosinophils # (Manual) Basophils # (Manual) PT INR APTT ABG pH ABG pO2 ABG HCO3 ABG O2 Saturation ABG Base Excess ABG Hemoglobin Oxyhemoglobin Sodium Potassium Chloride Carbon Dioxide BUN Creatinine Glucose POC Glucose 171 H 129 H 116 H Lactic Acid Calcium Ionized Calcium Phosphorus Magnesium Total Bilirubin AST ALT Alkaline Phosphatase Ammonia Total Creatine Kinase CK-MB (CK-2) CK-MB (CK-2) Rel Index Total Protein Albumin Urine WBC (Auto) Vancomycin Trough Salicylates Acetaminophen Plasma/Serum Alcohol Crossmatch 02/21/20 12:15 WBC RBC Hgb Hct MCH RDW Plt Count Lymph % (Auto) [place] % (Auto) [place] # Baso # Seg Neutrophils % Seg Neuts % (Manual) Lymphocytes % (Manual) Monocytes % (Manual) Seg Neutrophils # Seg Neutrophils # Man Lymphocytes # (Manual) Monocytes # (Manual) Eosinophils # (Manual) Basophils # (Manual) PT INR APTT ABG pH ABG pO2 ABG HCO3 ABG O2 Saturation ABG Base Excess ABG Hemoglobin Oxyhemoglobin Sodium Potassium Chloride Carbon Dioxide BUN Creatinine Glucose POC Glucose 124 H Lactic Acid Calcium Ionized Calcium Phosphorus Magnesium Total Bilirubin AST ALT Alkaline Phosphatase Ammonia Total Creatine Kinase CK-MB (CK-2) CK-MB (CK-2) Rel Index Total Protein Albumin Urine WBC (Auto) Vancomycin Trough Salicylates Acetaminophen Plasma/Serum Alcohol Crossmatch Allied health notes reviewed: RT
--- NOTE | 2020-02-21 17:13 | Progress Note ---
Assessment and Plan Assessment and plan: 02/17: Patient pending placement, Following extubation, the patient has remained with AMS, on restraints, no new fever but tachycardia, still requiring aggressive pulmonary toilet. 02/19; Pseudomonas sputum cultures, colonization/tracheostomy tube No treatment needed 02/21/2020; clinically no change, continue current management Awaiting placement --Anoxic brain injury: suspected CT head: No acute abnormality. EEG ordered showed Generalized slowing. No seizures or epileptiform activity. Patient now opening her eyes, can speak and able to follow minor command by nodding head --Acute Respiratory failure with hypoxia s/p Tracheostomy --Positive sputum cultures; colonization tracheostomy No need to treat --Status post cardiac arrest s/p intubation, s/p trach and PEG on 12/12 with mechanical ventilation, now on T-piece CTA was done and negative for PE, Echo quality is poor, showed diastolic dysfunction continue weaning as tolerated --Oropharyngeal dysphagia s/p PEG --Persistent Tachycardia --BHAVANA / vasomotor nephropathy; resolved --Anemia, microcytic Status post 3 units PRBC transfusion, H&H low stable --Acute metabolic encephalopathy/toxic encephalopathy multifactorial, supportive care --Hyperammonemia -resolved --Metabolic Acidosis Alcohol ketoacidosis vs hypoprofusion Continue to monitor --Acute cystitis --ELevated LFTs, stable now due to ischemic hepatitis. --Leucocytosis with sepsis Source MRSA bacteremia and MSSA pneumonia. UA showed pyuria. RUQ US showed no ascites. Repeat TTE negative for vegetation. Completed 7 days of Ceftriaxone on 11/29/2019. Treated with Abx vancomycin 1 gm IV q 12 hour total 2 week till 12/30/2019 Resolved --MSSA pneumonia: Status post vancomycin till 12/30/2019 --ALcohol USe Disorder given ongoing Alcohol use almost daily, s/p IV Thiamine monitor --Severe hypokalemia -Repleted --Seizure disorder: treat with Keppra --H. Influenzae, tracheobronchitis, treated with abx --Moderate to severe fecal impaction - will add stool softner --Anxiety disorder: Psych consulted --DNR CODE STATUS Disposition: prognosis guarded. PT recommended subacute rehab, discharge pending on placement. negative for COVID 19 Disposition ;awaiting Placement to SNF History Interval history: Patient seen and examined at the bedside Patient is in contact isolation, precautions followed Alert and awake confused, chronically ill looking Tracheostomy Vital signs noted Hospitalist Physical - Constitutional Vitals: Temp Pulse Resp BP Pulse Ox 97.7 F 116 H 20 120/82 98 02/21/20 07:47 02/21/20 10:00 02/21/20 08:51 02/21/20 07:47 02/21/20 08:50 General appearance: Present: no acute distress, cachectic, disheveled - EENT Eyes: Present: PERRL, EOM intact - Neck Neck: Present: supple, normal ROM - Respiratory Respiratory effort: normal Respiratory: bilateral: diminished, rhonchi, negative: rales, wheezing - Cardiovascular Rhythm: regular Heart Sounds: Present: S1 & S2 - Extremities Extremities: no ischemia - Abdominal General gastrointestinal: soft, non-tender, non-distended, normal bowel sounds - Integumentary Integumentary: Present: clear, warm - Psychiatric Psychiatric: other (Confused) - Neurologic Neurologic: other (Residual weakness) HEART Score - HEART Score Troponin: Troponin T < 0.010 ng/mL (0.00-0.029) 11/22/19 23:27 Results - Labs CBC & Chem 7: 02/17/20 07:57 02/17/20 07:57 Labs: Laboratory Last Values WBC 12.6 K/mm3 (4.5-11.0) H 02/17/20 07:57 RBC 3.52 M/mm3 (3.65-5.03) L 02/17/20 07:57 Hgb 10.2 gm/dl (10.1-14.3) 02/17/20 07:57 Hct 30.8 % (30.3-42.9) 02/17/20 07:57 MCV 88 fl (79-97) 02/17/20 07:57 MCH 29 pg (28-32) 02/17/20 07:57 MCHC 33 % (30-34) 02/17/20 07:57 RDW 15.3 % (13.2-15.2) H 02/17/20 07:57 Plt Count 643 K/mm3 (140-440) H 02/17/20 07:57 Lymph % (Auto) 21.3 % (13.4-35.0) 02/17/20 07:57 [place] % (Auto) 8.0 % (0.0-7.3) H 02/17/20 07:57 Eos % (Auto) 2.5 % (0.0-4.3) 02/17/20 07:57 Baso % (Auto) 0.5 % (0.0-1.8) 02/17/20 07:57 Lymph # 2.7 K/mm3 (1.2-5.4) 02/17/20 07:57 [place] # 1.0 K/mm3 (0.0-0.8) H 02/17/20 07:57 Eos # 0.3 K/mm3 (0.0-0.4) 02/17/20 07:57 Baso # 0.1 K/mm3 (0.0-0.1) 02/17/20 07:57 Add Manual Diff Complete 12/25/19 03:47 Total Counted 200 12/25/19 03:47 Seg Neutrophils % 67.7 % (40.0-70.0) 02/17/20 07:57 Seg Neuts % (Manual) 97.5 % (40.0-70.0) H 12/25/19 03:47 Band Neutrophils % 0 % 12/25/19 03:47 Lymphocytes % (Manual) 1.0 % (13.4-35.0) L 12/25/19 03:47 Reactive Lymphs % (Man) 0 % 12/25/19 03:47 Monocytes % (Manual) 1.5 % (0.0-7.3) 12/25/19 03:47 Eosinophils % (Manual) 0 % (0.0-4.3) 12/25/19 03:47 Basophils % (Manual) 0 % (0.0-1.8) 12/25/19 03:47 Metamyelocytes % 0 % 12/25/19 03:47 Myelocytes % 0 % 12/25/19 03:47 Promyelocytes % 0 % 12/25/19 03:47 Blast Cells % 0 % 12/25/19 03:47 Nucleated RBC % Not Reportable 12/25/19 03:47 Seg Neutrophils # 8.5 K/mm3 (1.8-7.7) H 02/17/20 07:57 Seg Neutrophils # Man 35.3 K/mm3 (1.8-7.7) H 12/25/19 03:47 Band Neutrophils # 0.0 K/mm3 12/25/19 03:47 Lymphocytes # (Manual) 0.4 K/mm3 (1.2-5.4) L 12/25/19 03:47 Abs React Lymphs (Man) 0.0 K/mm3 12/25/19 03:47 Monocytes # (Manual) 0.5 K/mm3 (0.0-0.8) 12/25/19 03:47 Eosinophils # (Manual) 0.0 K/mm3 (0.0-0.4) 12/25/19 03:47 Basophils # (Manual) 0.0 K/mm3 (0.0-0.1) 12/25/19 03:47 Metamyelocytes # 0.0 K/mm3 12/25/19 03:47 Myelocytes # 0.0 K/mm3 12/25/19 03:47 Promyelocytes # 0.0 K/mm3 12/25/19 03:47 Blast Cells # 0.0 K/mm3 12/25/19 03:47 Pathologist Review 12/13/19 07:48 WBC Morphology Not Reportable 12/25/19 03:47 Hypersegmented Neuts Not Reportable 12/25/19 03:47 Hyposegmented Neuts Not Reportable 12/25/19 03:47 Hypogranular Neuts Not Reportable 12/25/19 03:47 Smudge Cells Not Reportable 12/25/19 03:47 Toxic Granulation Not Reportable 12/25/19 03:47 Toxic Vacuolation Not Reportable 12/25/19 03:47 Dohle Bodies Not Reportable 12/25/19 03:47 Pelger-Huet Anomaly Not Reportable 12/25/19 03:47 Dominique Rods Not Reportable 12/25/19 03:47 Platelet Estimate Consistent w auto 12/25/19 03:47 Clumped Platelets Not Reportable 12/25/19 03:47 Plt Clumps, EDTA Not Reportable 12/25/19 03:47 Large Platelets Not Reportable 12/25/19 03:47 Giant Platelets Not Reportable 12/25/19 03:47 Platelet Satelliting Not Reportable 12/25/19 03:47 Plt Morphology Comment Not Reportable 12/25/19 03:47 RBC Morphology Not Reportable 12/25/19 03:47 Dimorphic RBCs Not Reportable 12/25/19 03:47 Polychromasia Not Reportable 12/25/19 03:47 Hypochromasia Not Reportable 12/25/19 03:47 Poikilocytosis Not Reportable 12/25/19 03:47 Anisocytosis 1+ 12/25/19 03:47 Microcytosis Not Reportable 12/25/19 03:47 Macrocytosis Not Reportable 12/25/19 03:47 Spherocytes Not Reportable 12/25/19 03:47 Pappenheimer Bodies Not Reportable 12/25/19 03:47 Sickle Cells Not Reportable 12/25/19 03:47 Target Cells Not Reportable 12/25/19 03:47 Tear Drop Cells Not Reportable 12/25/19 03:47 Ovalocytes Not Reportable 12/25/19 03:47 Helmet Cells Not Reportable 12/25/19 03:47 [place] Bodies Not Reportable 12/25/19 03:47 [place] Rings Not Reportable 12/25/19 03:47 Jamshid Cells Not Reportable 12/25/19 03:47 Bite Cells Not Reportable 12/25/19 03:47 Crenated Cell Not Reportable 12/25/19 03:47 Elliptocytes Not Reportable 12/25/19 03:47 Acanthocytes (Spur) Not Reportable 12/25/19 03:47 Rouleaux Not Reportable 12/25/19 03:47 Hemoglobin C Crystals Not Reportable 12/25/19 03:47 Schistocytes Not Reportable 12/25/19 03:47 Malaria parasites Not Reportable 12/25/19 03:47 Gregg Bodies Not Reportable 12/25/19 03:47 Hem Pathologist Commnt No 12/25/19 03:47 PT 17.0 Sec. (12.2-14.9) H 11/23/19 03:47 INR 1.36 (0.87-1.13) H 11/23/19 03:47 APTT 128.2 Sec. (24.2-36.6) H* 11/23/19 03:47 Heparin Anti-Xa Level 0.31 U.I./ml (0.3-0.7) 11/23/19 09:03 ABG pH 7.429 pH Units (7.350-7.450) 01/09/20 08:51 ABG pCO2 39.1 mm Hg 01/09/20 08:51 ABG pO2 94.3 mm Hg (80.0-90.0) H 01/09/20 08:51 ABG HCO3 25.3 mmol/L (20.0-26.0) 01/09/20 08:51 ABG O2 Saturation 97.4 % (95.0-99.0) 01/09/20 08:51 ABG O2 Content 12.9 (0.0-44) 01/09/20 08:51 ABG Base Excess 1.0 mmol/L (-2.0-3.0) 01/09/20 08:51 ABG Hemoglobin 9.5 gm/dl (12.0-16.0) L 01/09/20 08:51 ABG Carboxyhemoglobin 1.3 % (0.0-5.0) 01/09/20 08:51 ABG Methemoglobin 0.4 % (0.0-1.5) 01/09/20 08:51 Oxyhemoglobin 95.7 % (95.0-99.0) 01/09/20 08:51 FiO2 35 % 01/09/20 08:51 Sodium 137 mmol/L (137-145) 02/17/20 07:57 Potassium 4.7 mmol/L (3.6-5.0) 02/17/20 07:57 Chloride 96.9 mmol/L (98-107) L 02/17/20 07:57 Carbon Dioxide 25 mmol/L (22-30) 02/17/20 07:57 Anion Gap 20 mmol/L 02/17/20 07:57 BUN 21 mg/dL (7-17) H 02/17/20 07:57 Creatinine 0.4 mg/dL (0.7-1.2) L 02/17/20 07:57 Estimated GFR > 60 ml/min 02/17/20 07:57 BUN/Creatinine Ratio 53 % 02/17/20 07:57 Glucose 113 mg/dL (65-100) H 02/17/20 07:57 POC Glucose 124 (70-105) H 02/21/20 12:15 Lactic Acid 1.80 mmol/L (0.7-2.0) 11/25/19 05:05 Calcium 10.5 mg/dL (8.4-10.2) H 02/17/20 07:57 Ionized Calcium 4.5 mg/dL (4.8-5.6) L 11/23/19 06:32 Phosphorus 4.20 mg/dL (2.5-4.5) D 11/28/19 08:59 Magnesium 2.30 mg/dL (1.7-2.3) 11/29/19 13:41 Total Bilirubin 0.40 mg/dL (0.1-1.2) 12/13/19 07:48 AST 27 units/L (5-40) 12/13/19 07:48 ALT 26 units/L (7-56) 12/13/19 07:48 Alkaline Phosphatase 316 units/L (35-129) H 12/13/19 07:48 Ammonia 42.0 umol/L (25-60) 11/29/19 13:41 Total Creatine Kinase 139 units/L (30-135) H 11/22/19 23:27 CK-MB (CK-2) 8.3 ng/mL (0.0-4.0) H 11/22/19 23:27 CK-MB (CK-2) Rel Index 5.9 (0-4) H 11/22/19 23:27 Troponin T < 0.010 ng/mL (0.00-0.029) 11/22/19 23:27 Total Protein 6.8 g/dL (6.3-8.2) 12/13/19 07:48 Albumin 2.4 g/dL (3.9-5) L 12/13/19 07:48 Albumin/Globulin Ratio 0.5 % 12/13/19 07:48 Lipase 18 units/L (13-60) 11/23/19 00:34 Procalcitonin 1.09 ng/mL (<0.15) 11/23/19 04:53 TSH 1.010 mlU/mL (0.270-4.200) 02/12/20 07:36 Free T4 1.08 ng/dL (0.76-1.46) 02/12/20 07:36 Urine Color Yellow (Yellow) 12/16/19 Unknown Urine Turbidity Slightly-cloudy (Clear) 12/16/19 Unknown Urine pH 5.0 (5.0-7.0) 12/16/19 Unknown Ur Specific [place] 1.018 (1.003-1.030) 12/16/19 Unknown Urine Protein 30 mg/dl mg/dL (Negative) 12/16/19 Unknown Urine Glucose (UA) Neg mg/dL (Negative) 12/16/19 Unknown Urine Ketones Neg mg/dL (Negative) 12/16/19 Unknown Urine Blood Sm (Negative) 12/16/19 Unknown Urine Nitrite Neg (Negative) 12/16/19 Unknown Urine Bilirubin Neg (Negative) 12/16/19 Unknown Urine Urobilinogen < 2.0 mg/dL (<2.0) 12/16/19 Unknown Ur Leukocyte Esterase Neg (Negative) 12/16/19 Unknown Urine WBC (Auto) 6.0 /HPF (0.0-6.0) 12/16/19 Unknown Urine RBC (Auto) 9.0 /HPF (0.0-6.0) 12/16/19 Unknown U Epithel Cells (Auto) < 1.0 /HPF (0-13.0) 12/16/19 Unknown Urine Bacteria (Auto) 2+ /HPF (Negative) 11/22/19 23:17 Hyaline Casts 3 /LPF 12/16/19 Unknown Granular Casts 3 /LPF 12/16/19 Unknown Urine Mucus Few /HPF 12/16/19 Unknown Vancomycin Trough 33.8 ug/mL (5.0-20.0) H 12/21/19 08:56 Random Vancomycin 16.2 ug/mL (0-40.0) 12/24/19 04:31 Salicylates < 0.3 mg/dL (2.8-20.0) L 11/22/19 23:27 Urine Opiates Screen Presumptive negative 11/22/19 23:17 Urine Methadone Screen Presumptive negative 11/22/19 23:17 Acetaminophen < 5.0 ug/mL (10.0-30.0) L 11/22/19 23:27 Ur Barbiturates Screen Presumptive negative 11/22/19 23:17 Ur Phencyclidine Scrn Presumptive negative 11/22/19 23:17 Ur Amphetamines Screen Presumptive negative 11/22/19 23:17 U Benzodiazepines Scrn Presumptive negative 11/22/19 23:17 Urine Cocaine Screen Presumptive negative 11/22/19 23:17 U Marijuana (THC) Screen Presumptive negative 11/22/19 23:17 Drugs of Abuse Note Disclamer 11/22/19 23:17 Plasma/Serum Alcohol 0.08 % (0-0.07) H 11/22/19 23:27 Coronavirus (PCR) Negative (Negative) 02/05/20 07:50 Hepatitis A IgM Ab Non-reactive (NonReactive) 11/23/19 01:19 Hep Bs Antigen Non-reactive (Negative) 11/23/19 01:19 Hep B Core IgM Ab Non-reactive (NonReactive) 11/23/19 01:19 Hepatitis C Antibody Non-reactive (NonReactive) 11/23/19 01:19 Blood Type O POSITIVE 12/21/19 14:54 Antibody Screen Negative 12/21/19 14:54 Crossmatch See Detail 12/21/19 14:54 - Diagnostic Impressions Diagnostic Impressions: Echocardiogram 11/23/19 03:58 Transthoracic Echocardiogram Indication: Cardiac arrest BP: 131/89 HR: 115 Conclusions *The study quality is technically difficult. *Global left ventricular wall motion and contractility are within normal limits. *The estimated ejection fraction is 55-60%. *Abnormal left ventricular diastolic filling is observed, consistent with impaired relaxation. *There is no pericardial effusion. Findings Procedure Info: The study quality is technically difficult. The study was technically limited due to the patient's inability to lay in the left lateral decubitus position. Left Ventricle: The left ventricular chamber size is normal. There is no left ventricular hypertrophy. Global left ventricular wall motion and contractility are within normal limits. Global left ventricular systolic function is normal. The estimated ejection fraction is 55-60%. Abnormal left ventricular diastolic filling is observed, consistent with impaired relaxation. Left Atrium: The left atrial chamber size is normal. Aortic Valve: The aortic valve leaflets are mildly thickened. Mitral Valve: The mitral valve leaflets are mildly thickened. There is no evidence of mitral regurgitation. Tricuspid Valve: The tricuspid valve leaflets are normal. There is trace tricuspid regurgitation. The right ventricular systolic pressure is calculated at 33 mmHg. Pulmonic Valve: The pulmonic valve appears normal. Pericardium: The pericardium appears normal. There is no pericardial effusion. Aorta: The aorta appears normal. Venous: The inferior vena cava appears normal in size. Measurements Chambers 2D Name Value Normal Range IVSd (2D) 0.94 cm (0.6 - 1.1) LVPWd (2D) 0.81 cm (0.6 - 1.1) LVIDd (2D) 3.6 cm (3.7 - 5.6) LVIDs (2D) 2.27 cm (2 - 3.8) LV FS (2D) 36.93 % - EF Teichholz (2D) 67.76 % - Ao root diameter (2D) 3.03 cm (2 - 3.7) Volumes/Mass Name Value Normal Range LA ESV SP 4CH (A/L) 16.89 ml - LA ESV SP 4CH (MOD) 15.52 ml - Diastolic/Systolic Function Name Value Normal Range MV E-wave Vmax 0.55 m/sec - MV deceleration time 200.89 msec - MV A-wave Vmax 0.68 m/sec - MV E:A ratio 0.82 ratio - Aortic Valve Name Value Normal Range AV Vmax 1.1 m/sec - AV VTI 15.9 cm - AV peak gradient 4.86 mmHg - AV mean gradient 2.59 mmHg - LVOT diameter 2 cm - LVOT Vmax 1.03 m/sec - LVOT VTI 15.87 cm - LVOT peak gradient 4.24 mmHg - LVOT mean gradient 2.41 mmHg - SV LVOT 49.77 ml - JOSÉ MIGUEL (continuity Vmax) 2.93 cm2 - JOSÉ MIGUEL (continuity VTI) 3.13 cm2 - Tricuspid Valve Name Value Normal Range TR Vmax 2.74 m/sec - TR peak gradient 303 mmHg - RAP 3 mmHg - RVSP 33 mmHg - IVC diameter 1.77 cm (1.2 - 2.3) Pulmonic Valve/Qp:Qs Name Value Normal Range PV Vmax 0.77 m/sec - PV peak gradient 2.4 mmHg - PV acceleration time 114.18 msec - Echocardiogram Limited Views 12/17/19 14:53 Transthoracic Echocardiogram Indication: R/O Vegetations BP: 144/83 HR: 133 Conclusions *Global left ventricular systolic function is mildly decreased. *The estimated ejection fraction is 45-50%. *A trivial pericardial effusion is visualized. Findings Left Ventricle: The left ventricular chamber size is normal. Global left ventricular systolic function is mildly decreased. The estimated ejection fraction is 45-50%. Left Atrium: The left atrial chamber size is normal. Right Ventricle: The right ventricular cavity size is normal. Right Atrium: The right atrial cavity size is normal. Aortic Valve: The aortic valve is not well visualized. There is no evidence of aortic regurgitation. Mitral Valve: The mitral valve leaflets are mildly thickened. There is trace of mitral regurgitation. Tricuspid Valve: The tricuspid valve leaflets are mildly thickened. There is trace tricuspid regurgitation. The right ventricular systolic pressure is calculated at 29 mmHg. Pulmonic Valve: The pulmonic valve is not well visualized. There is no evidence of pulmonic regurgitation. Pericardium: A trivial pericardial effusion is visualized. Aorta: There is no dilatation of the ascending aorta. There is no dilatation of the aortic root. Venous: The inferior vena cava appears normal in size. There is a greater than 50% respiratory change in the inferior vena cava dimension. Measurements Chambers 2D Name Value Normal Range IVSd (2D) 0.83 cm (0.6 - 1.1) LVPWd (2D) 0.98 cm (0.6 - 1.1) LVIDd (2D) 3.71 cm (3.7 - 5.6) LVIDs (2D) 2.93 cm (2 - 3.8) LV FS (2D) 21.12 % - EF Teichholz (2D) 43.71 % - Ao root diameter (2D) 3.02 cm (2 - 3.7) Volumes/Mass Name Value Normal Range LA ESV SP 4CH (A/L) 36.8 ml - LA ESV SP 2CH (A/L) 45.89 ml - LA ESV BP (A/L) 42.35 ml - LA ESV BP (A/L) index 26.63 ml/m2 - LA ESV SP 4CH (MOD) 34.42 ml - LA ESV SP 2CH (MOD) 44.21 ml - LA ESV BP (MOD) 39.82 ml - LA ESV BP (MOD) index 25.05 ml/m2 - Aortic Valve Name Value Normal Range LVOT diameter 1.63 cm - Tricuspid Valve Name Value Normal Range TR Vmax 2.56 m/sec - TR peak gradient 26 mmHg - RAP 3 mmHg - RVSP 29 mmHg - IVC diameter 1.83 cm (1.2 - 2.3) [place]/IV: Voiding Method Incontinent IV Catheter Type [Forearm] Peripheral IV IV Catheter Type [Left Forearm INT / Saline Lock ] IV Catheter Type [Right Peripheral IV Antecubital] IV Catheter Type [Right Hand] Peripheral IV IV Catheter Type [Right Wrist] Peripheral IV IV Catheter Type [Left Wrist] Peripheral IV IV Catheter Type [Left Peripheral IV Antecubital] IV Catheter Type [Right INT / Saline Lock Forearm] IV Catheter Type [Left Hand] Peripheral IV Active Medications - Current Medications Current Medications: Generic Name Dose Route Start Last Admin Trade Name Freq PRN Reason Stop Dose Admin Acetaminophen 650 mg 12/06/19 10:25 02/20/20 21:44 Tylenol FEEDTUBE 650 mg Q6H PRN Administration TEMP >/=100.3 Acetylcysteine 200 mg 02/16/20 20:00 02/21/20 08:48 Mucomyst Inhalation INHALATION 200 mg Q12HRT LUCHO Administration Lipase/Protease/Amylase 1 each 11/23/19 11:[address] 10,500 Unit FEEDTUBE PRN PRN Use w/ sod bicarb for FT Bisacodyl 10 mg 02/06/20 13:57 Dulcolax [place] QDAY PRN Constipation unrelieved by MOM Docusate Sodium 100 mg 02/18/20 22:00 02/21/20 09:47 Colace FEEDTUBE 100 mg BID LUCHO Administration Glycopyrrolate 2 mg 12/31/19 20:00 02/21/20 16:33 Robinul PO 2 mg TID LUCHO Administration Haloperidol Lactate 2 mg 02/21/20 10:51 02/21/20 12:34 Haldol FEEDTUBE 2 mg Q6H PRN Administration Agitation Hydralazine HCl 10 mg 11/24/19 00:45 12/18/19 13:25 Apresoline IV 10 mg Q6H PRN Administration SBP > 160 Hydroxyzine Pamoate 25 mg 12/06/19 10:00 02/21/20 09:47 Vistaril PO 25 mg BID LUCHO Administration Lansoprazole 30 mg 11/27/19 10:00 02/21/20 09:50 Prevacid Solutab FEEDTUBE 30 mg QDAY LUCHO Administration Levalbuterol HCl 0.63 mg 02/17/20 00:00 02/21/20 15:34 Xopenex IH 0.63 mg Q8HRT LUCHO Administration Levetiracetam 500 mg 11/29/19 10:00 02/21/20 09:47 Keppra PO 500 mg BID LUCHO Administration Mirtazapine 30 mg 12/06/19 10:00 02/21/20 09:45 Remeron PO 30 mg DAILY LUCHO Administration Nicotine 21 mg 02/16/20 13:00 02/21/20 09:47 Habitrol TD 21 mg QDAY LUCHO Administration Ondansetron HCl 4 mg 12/10/19 07:53 02/05/20 22:06 Zofran IV 4 mg Q4H PRN Administration Nausea And Vomiting Polyethylene Glycol 17 gm 02/06/20 13:57 Miralax 3350 PO QDAY PRN Constipation Quetiapine Fumarate 100 mg 01/09/20 21:41 02/20/20 21:45 Seroquel FEEDTUBE 100 mg QHS LUCHO Administration Scopolamine 1 each 02/08/20 15:00 02/20/20 17:13 Transderm-Scop TD 1 each Q3D LUCHO Administration Sertraline HCl 25 mg 01/01/20 10:00 02/21/20 09:46 Zoloft PO 25 mg QDAY LUCHO Administration Simple Syrup 15 ml 11/23/19 11:50 Simple Syrup FEEDTUBE PRN PRN Hypoglycemia BG<70 Simple Syrup 30 ml 11/23/19 11:50 Simple Syrup FEEDTUBE PRN PRN Hypoglycemia Sodium Bicarbonate 325 mg 11/23/19 11:50 Sodium Bicarbonate FEEDTUBE PRN PRN For Clogged Feeding Tube Nutrition/Malnutrition Assess - Dietary Evaluation Nutrition/Malnutrition Findings: Nutrition Notes Start: 11/23/19 11:29 Freq: Status: Active Protocol: Document 02/20/20 11:56 LM (Rec: 02/20/20 12:10 LM [email or web address]) Nutrition Notes Initial or Follow up Reassessment Current Diagnosis Hypertension Other Pertinent Diagnosis Cardaic arrest, ETOH dependence, UTI Current Diet Jevity 1.2 at 60ml/hr Labs/Tests Reviewed Pertinent Medications Reviewed Height 5 ft 6 in Weight 45.6 kg [place] Body Weight (kg) 59.09 BMI 16.2 Subjective/Other Information TF running at goal. Percent of energy/protein needs met: 99%/100% Burn Absent Trauma Absent GI Symptoms None Current % PO Negligible Interpretation of Weight Loss (severe) >2% in 1 week Muscle Mass Mild Depletion (non-severe) #2 Nutrition Diagnosis Malnutrition Diagnosis Progress(for reassessment Continues documentation) #1 Nutrition Diagnosis Inadequate oral intake Diagnosis Progress(for reassessment Continues documentation) Is patient on ventilator? No Is Patient Ambulatory and/or Out of Bed No [facility] 1291.932 Kcal/Kg value to use for calculation 38 Approximate Energy Requirements Using 1733 kcal/Kg Calculation Used for Recommendations Kcal/kg Additional Notes Protein: 60-75g (1.2-1.5g/kg) Fluid: 1 ml/kcal Nutrition Intervention Change Diet Order: Continue TF Nutrition Support: Change to Jevity 1.2 at 60ml/ hr Flush 100ml q4h Kcal 1,728 Protein (gm) 80 Fluid (mL) 1,162 Goal #1 TF tolerance Goal #2 Meet at least 80% of energy and protein needs via TF Anticipated Discharge Needs: TF Follow-Up By: 02/26/20 Additional Comments F/U for TF tolerance, wt
[2020-02-21] MEDS: QUEtiapine 100 MG TAB FEEDTUBE SCH (22:39)
[2020-02-22] MEDS: ACETYLCYSTEINE 20% 200 MG/1 ML *FOR INHALATION USE INHALATION SCH ×3 (00:42→21:20)
[2020-02-22] MEDS: LEVALBUTEROL 0.63 MG/3 ML NEBU IH SCH ×3 (00:42→21:19)
[2020-02-22] MEDS: NICOTINE 21 MG/24 HR PATCH TD SCH (10:15)
[2020-02-22] MEDS: DOCUSATE SODIUM 100 MG/10 ML ORAL LIQD FEEDTUBE SCH ×2 (10:16→22:25)
[2020-02-22] MEDS: ACETAMINOPHEN 325 MG/10.15 ML ORAL LIQD UNIT DOSE FEEDTUBE PRN (10:16)
[2020-02-22] MEDS: ALPRAZolam 1 MG TAB PO PRN (10:16)
[2020-02-22] MEDS: levETIRAcetam 500 MG/5 ML ORAL LIQD PO SCH ×2 (10:17→22:25)
[2020-02-22] MEDS: SERTRALINE 50 MG TAB PO SCH (10:17)
[2020-02-22] MEDS: LANSOPRAZOLE 30 MG SOLUTAB FEEDTUBE SCH (10:18)
[2020-02-22] MEDS: GLYCOPYRROLATE 1 MG TAB PO SCH ×3 (10:22→22:25)
[2020-02-22] MEDS: MIRTAZAPINE 30 MG TAB PO SCH (10:22)
[2020-02-22] MEDS: hydrOXYzine PAMOATE 25 MG CAP PO SCH ×2 (10:38→22:24)
--- NOTE | 2020-02-22 18:52 | Progress Note ---
Assessment and Plan Assessment and plan: 02/17: Patient pending placement, Following extubation, the patient has remained with AMS, on restraints, no new fever but tachycardia, still requiring aggressive pulmonary toilet. 02/19; Pseudomonas sputum cultures, colonization/tracheostomy tube No treatment needed 02/21/2020; clinically no change, continue current management Awaiting placement 02/22/20 ; patient is slightly restless and agitated Will try Ativan as needed, awaiting placement --Anoxic brain injury: suspected CT head: No acute abnormality. EEG ordered showed Generalized slowing. No seizures or epileptiform activity. Patient now opening her eyes, can speak and able to follow minor command by nodding head --Acute Respiratory failure with hypoxia s/p Tracheostomy --Positive sputum cultures; colonization tracheostomy No need to treat --Status post cardiac arrest s/p intubation, s/p trach and PEG on 12/12 with mechanical ventilation, now on T-piece CTA was done and negative for PE, Echo quality is poor, showed diastolic dysfunction continue weaning as tolerated --Oropharyngeal dysphagia s/p PEG --Persistent Tachycardia --BHAVANA / vasomotor nephropathy; resolved --Anemia, microcytic Status post 3 units PRBC transfusion, H&H low stable --Acute metabolic encephalopathy/toxic encephalopathy multifactorial, supportive care --Hyperammonemia -resolved --Metabolic Acidosis Alcohol ketoacidosis vs hypoprofusion Continue to monitor --Acute cystitis --ELevated LFTs, stable now due to ischemic hepatitis. --Leucocytosis with sepsis Source MRSA bacteremia and MSSA pneumonia. UA showed pyuria. RUQ US showed no ascites. Repeat TTE negative for vegetation. Completed 7 days of Ceftriaxone on 11/29/2019. Treated with Abx vancomycin 1 gm IV q 12 hour total 2 week till 12/30/2019 Resolved --MSSA pneumonia: Status post vancomycin till 12/30/2019 --ALcohol USe Disorder given ongoing Alcohol use almost daily, s/p IV Thiamine monitor --Severe hypokalemia -Repleted --Seizure disorder: treat with Keppra --H. Influenzae, tracheobronchitis, treated with abx --Moderate to severe fecal impaction - will add stool softner --Anxiety disorder: Psych consulted --DNR CODE STATUS Disposition: prognosis guarded. PT recommended subacute rehab, discharge pending on placement. negative for COVID 19 Disposition ;awaiting Placement to SNF History Interval history: Patient seen and examined at the bedside Contact isolation precautions observed Patient is agitated requiring restraints In mild distress Vital signs noted Hospitalist Physical - Constitutional Vitals: Temp Pulse Resp BP Pulse Ox 98.9 F 70 20 151/86 99 02/22/20 15:30 02/22/20 15:30 02/22/20 15:30 02/22/20 15:30 02/22/20 15:30 General appearance: Present: mild distress, cachectic, disheveled, other (Agitated) - EENT Eyes: Present: PERRL, EOM intact - Neck Neck: Present: supple, other (Tracheostomy) - Respiratory Respiratory: bilateral: diminished, rhonchi, negative: rales, wheezing - Cardiovascular Rhythm: regular Heart Sounds: Present: S1 & S2 - Extremities Extremities: no ischemia, No edema - Abdominal General gastrointestinal: soft, non-tender, non-distended, normal bowel sounds - Integumentary Integumentary: Present: clear, warm - Psychiatric Psychiatric: agitated, other (Noncommunicative) - Neurologic Neurologic: other (Residual weakness) HEART Score - HEART Score Troponin: Troponin T < 0.010 ng/mL (0.00-0.029) 11/22/19 23:27 Results - Labs CBC & Chem 7: 02/17/20 07:57 02/17/20 07:57 Labs: Laboratory Last Values WBC 12.6 K/mm3 (4.5-11.0) H 02/17/20 07:57 RBC 3.52 M/mm3 (3.65-5.03) L 02/17/20 07:57 Hgb 10.2 gm/dl (10.1-14.3) 02/17/20 07:57 Hct 30.8 % (30.3-42.9) 02/17/20 07:57 MCV 88 fl (79-97) 02/17/20 07:57 MCH 29 pg (28-32) 02/17/20 07:57 MCHC 33 % (30-34) 02/17/20 07:57 RDW 15.3 % (13.2-15.2) H 02/17/20 07:57 Plt Count 643 K/mm3 (140-440) H 02/17/20 07:57 Lymph % (Auto) 21.3 % (13.4-35.0) 02/17/20 07:57 [place] % (Auto) 8.0 % (0.0-7.3) H 02/17/20 07:57 Eos % (Auto) 2.5 % (0.0-4.3) 02/17/20 07:57 Baso % (Auto) 0.5 % (0.0-1.8) 02/17/20 07:57 Lymph # 2.7 K/mm3 (1.2-5.4) 02/17/20 07:57 [place] # 1.0 K/mm3 (0.0-0.8) H 02/17/20 07:57 Eos # 0.3 K/mm3 (0.0-0.4) 02/17/20 07:57 Baso # 0.1 K/mm3 (0.0-0.1) 02/17/20 07:57 Add Manual Diff Complete 12/25/19 03:47 Total Counted 200 12/25/19 03:47 Seg Neutrophils % 67.7 % (40.0-70.0) 02/17/20 07:57 Seg Neuts % (Manual) 97.5 % (40.0-70.0) H 12/25/19 03:47 Band Neutrophils % 0 % 12/25/19 03:47 Lymphocytes % (Manual) 1.0 % (13.4-35.0) L 12/25/19 03:47 Reactive Lymphs % (Man) 0 % 12/25/19 03:47 Monocytes % (Manual) 1.5 % (0.0-7.3) 12/25/19 03:47 Eosinophils % (Manual) 0 % (0.0-4.3) 12/25/19 03:47 Basophils % (Manual) 0 % (0.0-1.8) 12/25/19 03:47 Metamyelocytes % 0 % 12/25/19 03:47 Myelocytes % 0 % 12/25/19 03:47 Promyelocytes % 0 % 12/25/19 03:47 Blast Cells % 0 % 12/25/19 03:47 Nucleated RBC % Not Reportable 12/25/19 03:47 Seg Neutrophils # 8.5 K/mm3 (1.8-7.7) H 02/17/20 07:57 Seg Neutrophils # Man 35.3 K/mm3 (1.8-7.7) H 12/25/19 03:47 Band Neutrophils # 0.0 K/mm3 12/25/19 03:47 Lymphocytes # (Manual) 0.4 K/mm3 (1.2-5.4) L 12/25/19 03:47 Abs React Lymphs (Man) 0.0 K/mm3 12/25/19 03:47 Monocytes # (Manual) 0.5 K/mm3 (0.0-0.8) 12/25/19 03:47 Eosinophils # (Manual) 0.0 K/mm3 (0.0-0.4) 12/25/19 03:47 Basophils # (Manual) 0.0 K/mm3 (0.0-0.1) 12/25/19 03:47 Metamyelocytes # 0.0 K/mm3 12/25/19 03:47 Myelocytes # 0.0 K/mm3 12/25/19 03:47 Promyelocytes # 0.0 K/mm3 12/25/19 03:47 Blast Cells # 0.0 K/mm3 12/25/19 03:47 Pathologist Review 12/13/19 07:48 WBC Morphology Not Reportable 12/25/19 03:47 Hypersegmented Neuts Not Reportable 12/25/19 03:47 Hyposegmented Neuts Not Reportable 12/25/19 03:47 Hypogranular Neuts Not Reportable 12/25/19 03:47 Smudge Cells Not Reportable 12/25/19 03:47 Toxic Granulation Not Reportable 12/25/19 03:47 Toxic Vacuolation Not Reportable 12/25/19 03:47 Dohle Bodies Not Reportable 12/25/19 03:47 Pelger-Huet Anomaly Not Reportable 12/25/19 03:47 Dominique Rods Not Reportable 12/25/19 03:47 Platelet Estimate Consistent w auto 12/25/19 03:47 Clumped Platelets Not Reportable 12/25/19 03:47 Plt Clumps, EDTA Not Reportable 12/25/19 03:47 Large Platelets Not Reportable 12/25/19 03:47 Giant Platelets Not Reportable 12/25/19 03:47 Platelet Satelliting Not Reportable 12/25/19 03:47 Plt Morphology Comment Not Reportable 12/25/19 03:47 RBC Morphology Not Reportable 12/25/19 03:47 Dimorphic RBCs Not Reportable 12/25/19 03:47 Polychromasia Not Reportable 12/25/19 03:47 Hypochromasia Not Reportable 12/25/19 03:47 Poikilocytosis Not Reportable 12/25/19 03:47 Anisocytosis 1+ 12/25/19 03:47 Microcytosis Not Reportable 12/25/19 03:47 Macrocytosis Not Reportable 12/25/19 03:47 Spherocytes Not Reportable 12/25/19 03:47 Pappenheimer Bodies Not Reportable 12/25/19 03:47 Sickle Cells Not Reportable 12/25/19 03:47 Target Cells Not Reportable 12/25/19 03:47 Tear Drop Cells Not Reportable 12/25/19 03:47 Ovalocytes Not Reportable 12/25/19 03:47 Helmet Cells Not Reportable 12/25/19 03:47 Frias-Honor Bodies Not Reportable 12/25/19 03:47 Lawn Rings Not Reportable 12/25/19 03:47 Jamshid Cells Not Reportable 12/25/19 03:47 Bite Cells Not Reportable 12/25/19 03:47 Crenated Cell Not Reportable 12/25/19 03:47 Elliptocytes Not Reportable 12/25/19 03:47 Acanthocytes (Spur) Not Reportable 12/25/19 03:47 Rouleaux Not Reportable 12/25/19 03:47 Hemoglobin C Crystals Not Reportable 12/25/19 03:47 Schistocytes Not Reportable 12/25/19 03:47 Malaria parasites Not Reportable 12/25/19 03:47 Gregg Bodies Not Reportable 12/25/19 03:47 Hem Pathologist Commnt No 12/25/19 03:47 PT 17.0 Sec. (12.2-14.9) H 11/23/19 03:47 INR 1.36 (0.87-1.13) H 11/23/19 03:47 APTT 128.2 Sec. (24.2-36.6) H* 11/23/19 03:47 Heparin Anti-Xa Level 0.31 U.I./ml (0.3-0.7) 11/23/19 09:03 ABG pH 7.429 pH Units (7.350-7.450) 01/09/20 08:51 ABG pCO2 39.1 mm Hg 01/09/20 08:51 ABG pO2 94.3 mm Hg (80.0-90.0) H 01/09/20 08:51 ABG HCO3 25.3 mmol/L (20.0-26.0) 01/09/20 08:51 ABG O2 Saturation 97.4 % (95.0-99.0) 01/09/20 08:51 ABG O2 Content 12.9 (0.0-44) 01/09/20 08:51 ABG Base Excess 1.0 mmol/L (-2.0-3.0) 01/09/20 08:51 ABG Hemoglobin 9.5 gm/dl (12.0-16.0) L 01/09/20 08:51 ABG Carboxyhemoglobin 1.3 % (0.0-5.0) 01/09/20 08:51 ABG Methemoglobin 0.4 % (0.0-1.5) 01/09/20 08:51 Oxyhemoglobin 95.7 % (95.0-99.0) 01/09/20 08:51 FiO2 35 % 01/09/20 08:51 Sodium 137 mmol/L (137-145) 02/17/20 07:57 Potassium 4.7 mmol/L (3.6-5.0) 02/17/20 07:57 Chloride 96.9 mmol/L (98-107) L 02/17/20 07:57 Carbon Dioxide 25 mmol/L (22-30) 02/17/20 07:57 Anion Gap 20 mmol/L 02/17/20 07:57 BUN 21 mg/dL (7-17) H 02/17/20 07:57 Creatinine 0.4 mg/dL (0.7-1.2) L 02/17/20 07:57 Estimated GFR > 60 ml/min 02/17/20 07:57 BUN/Creatinine Ratio 53 % 02/17/20 07:57 Glucose 113 mg/dL (65-100) H 02/17/20 07:57 POC Glucose 157 (70-105) H 02/22/20 17:55 Lactic Acid 1.80 mmol/L (0.7-2.0) 11/25/19 05:05 Calcium 10.5 mg/dL (8.4-10.2) H 02/17/20 07:57 Ionized Calcium 4.5 mg/dL (4.8-5.6) L 11/23/19 06:32 Phosphorus 4.20 mg/dL (2.5-4.5) D 11/28/19 08:59 Magnesium 2.30 mg/dL (1.7-2.3) 11/29/19 13:41 Total Bilirubin 0.40 mg/dL (0.1-1.2) 12/13/19 07:48 AST 27 units/L (5-40) 12/13/19 07:48 ALT 26 units/L (7-56) 12/13/19 07:48 Alkaline Phosphatase 316 units/L (35-129) H 12/13/19 07:48 Ammonia 42.0 umol/L (25-60) 11/29/19 13:41 Total Creatine Kinase 139 units/L (30-135) H 11/22/19 23:27 CK-MB (CK-2) 8.3 ng/mL (0.0-4.0) H 11/22/19 23:27 CK-MB (CK-2) Rel Index 5.9 (0-4) H 11/22/19 23:27 Troponin T < 0.010 ng/mL (0.00-0.029) 11/22/19 23:27 Total Protein 6.8 g/dL (6.3-8.2) 12/13/19 07:48 Albumin 2.4 g/dL (3.9-5) L 12/13/19 07:48 Albumin/Globulin Ratio 0.5 % 12/13/19 07:48 Lipase 18 units/L (13-60) 11/23/19 00:34 Procalcitonin 1.09 ng/mL (<0.15) 11/23/19 04:53 TSH 1.010 mlU/mL (0.270-4.200) 02/12/20 07:36 Free T4 1.08 ng/dL (0.76-1.46) 02/12/20 07:36 Urine Color Yellow (Yellow) 12/16/19 Unknown Urine Turbidity Slightly-cloudy (Clear) 12/16/19 Unknown Urine pH 5.0 (5.0-7.0) 12/16/19 Unknown Ur Specific [place] 1.018 (1.003-1.030) 12/16/19 Unknown Urine Protein 30 mg/dl mg/dL (Negative) 12/16/19 Unknown Urine Glucose (UA) Neg mg/dL (Negative) 12/16/19 Unknown Urine Ketones Neg mg/dL (Negative) 12/16/19 Unknown Urine Blood Sm (Negative) 12/16/19 Unknown Urine Nitrite Neg (Negative) 12/16/19 Unknown Urine Bilirubin Neg (Negative) 12/16/19 Unknown Urine Urobilinogen < 2.0 mg/dL (<2.0) 12/16/19 Unknown Ur Leukocyte Esterase Neg (Negative) 12/16/19 Unknown Urine WBC (Auto) 6.0 /HPF (0.0-6.0) 12/16/19 Unknown Urine RBC (Auto) 9.0 /HPF (0.0-6.0) 12/16/19 Unknown U Epithel Cells (Auto) < 1.0 /HPF (0-13.0) 12/16/19 Unknown Urine Bacteria (Auto) 2+ /HPF (Negative) 11/22/19 23:17 Hyaline Casts 3 /LPF 12/16/19 Unknown Granular Casts 3 /LPF 12/16/19 Unknown Urine Mucus Few /HPF 12/16/19 Unknown Vancomycin Trough 33.8 ug/mL (5.0-20.0) H 12/21/19 08:56 Random Vancomycin 16.2 ug/mL (0-40.0) 12/24/19 04:31 Salicylates < 0.3 mg/dL (2.8-20.0) L 11/22/19 23:27 Urine Opiates Screen Presumptive negative 11/22/19 23:17 Urine Methadone Screen Presumptive negative 11/22/19 23:17 Acetaminophen < 5.0 ug/mL (10.0-30.0) L 11/22/19 23:27 Ur Barbiturates Screen Presumptive negative 11/22/19 23:17 Ur Phencyclidine Scrn Presumptive negative 11/22/19 23:17 Ur Amphetamines Screen Presumptive negative 11/22/19 23:17 U Benzodiazepines Scrn Presumptive negative 11/22/19 23:17 Urine Cocaine Screen Presumptive negative 11/22/19 23:17 U Marijuana (THC) Screen Presumptive negative 11/22/19 23:17 Drugs of Abuse Note Disclamer 11/22/19 23:17 Plasma/Serum Alcohol 0.08 % (0-0.07) H 11/22/19 23:27 Coronavirus (PCR) Negative (Negative) 02/05/20 07:50 Hepatitis A IgM Ab Non-reactive (NonReactive) 11/23/19 01:19 Hep Bs Antigen Non-reactive (Negative) 11/23/19 01:19 Hep B Core IgM Ab Non-reactive (NonReactive) 11/23/19 01:19 Hepatitis C Antibody Non-reactive (NonReactive) 11/23/19 01:19 Blood Type O POSITIVE 12/21/19 14:54 Antibody Screen Negative 12/21/19 14:54 Crossmatch See Detail 12/21/19 14:54 - Diagnostic Impressions Diagnostic Impressions: Echocardiogram 11/23/19 03:58 Transthoracic Echocardiogram Indication: Cardiac arrest BP: 131/89 HR: 115 Conclusions *The study quality is technically difficult. *Global left ventricular wall motion and contractility are within normal limits. *The estimated ejection fraction is 55-60%. *Abnormal left ventricular diastolic filling is observed, consistent with impaired relaxation. *There is no pericardial effusion. Findings Procedure Info: The study quality is technically difficult. The study was technically limited due to the patient's inability to lay in the left lateral decubitus position. Left Ventricle: The left ventricular chamber size is normal. There is no left ventricular hypertrophy. Global left ventricular wall motion and contractility are within normal limits. Global left ventricular systolic function is normal. The estimated ejection fraction is 55-60%. Abnormal left ventricular diastolic filling is observed, consistent with impaired relaxation. Left Atrium: The left atrial chamber size is normal. Aortic Valve: The aortic valve leaflets are mildly thickened. Mitral Valve: The mitral valve leaflets are mildly thickened. There is no evidence of mitral regurgitation. Tricuspid Valve: The tricuspid valve leaflets are normal. There is trace tricuspid regurgitation. The right ventricular systolic pressure is calculated at 33 mmHg. Pulmonic Valve: The pulmonic valve appears normal. Pericardium: The pericardium appears normal. There is no pericardial effusion. Aorta: The aorta appears normal. Venous: The inferior vena cava appears normal in size. Measurements Chambers 2D Name Value Normal Range IVSd (2D) 0.94 cm (0.6 - 1.1) LVPWd (2D) 0.81 cm (0.6 - 1.1) LVIDd (2D) 3.6 cm (3.7 - 5.6) LVIDs (2D) 2.27 cm (2 - 3.8) LV FS (2D) 36.93 % - EF Teichholz (2D) 67.76 % - Ao root diameter (2D) 3.03 cm (2 - 3.7) Volumes/Mass Name Value Normal Range LA ESV SP 4CH (A/L) 16.89 ml - LA ESV SP 4CH (MOD) 15.52 ml - Diastolic/Systolic Function Name Value Normal Range MV E-wave Vmax 0.55 m/sec - MV deceleration time 200.89 msec - MV A-wave Vmax 0.68 m/sec - MV E:A ratio 0.82 ratio - Aortic Valve Name Value Normal Range AV Vmax 1.1 m/sec - AV VTI 15.9 cm - AV peak gradient 4.86 mmHg - AV mean gradient 2.59 mmHg - LVOT diameter 2 cm - LVOT Vmax 1.03 m/sec - LVOT VTI 15.87 cm - LVOT peak gradient 4.24 mmHg - LVOT mean gradient 2.41 mmHg - SV LVOT 49.77 ml - JOSÉ MIGUEL (continuity Vmax) 2.93 cm2 - JOSÉ MIGUEL (continuity VTI) 3.13 cm2 - Tricuspid Valve Name Value Normal Range TR Vmax 2.74 m/sec - TR peak gradient 303 mmHg - RAP 3 mmHg - RVSP 33 mmHg - IVC diameter 1.77 cm (1.2 - 2.3) Pulmonic Valve/Qp:Qs Name Value Normal Range PV Vmax 0.77 m/sec - PV peak gradient 2.4 mmHg - PV acceleration time 114.18 msec - Echocardiogram Limited Views 12/17/19 14:53 Transthoracic Echocardiogram Indication: R/O Vegetations BP: 144/83 HR: 133 Conclusions *Global left ventricular systolic function is mildly decreased. *The estimated ejection fraction is 45-50%. *A trivial pericardial effusion is visualized. Findings Left Ventricle: The left ventricular chamber size is normal. Global left ventricular systolic function is mildly decreased. The estimated ejection fraction is 45-50%. Left Atrium: The left atrial chamber size is normal. Right Ventricle: The right ventricular cavity size is normal. Right Atrium: The right atrial cavity size is normal. Aortic Valve: The aortic valve is not well visualized. There is no evidence of aortic regurgitation. Mitral Valve: The mitral valve leaflets are mildly thickened. There is trace of mitral regurgitation. Tricuspid Valve: The tricuspid valve leaflets are mildly thickened. There is trace tricuspid regurgitation. The right ventricular systolic pressure is calculated at 29 mmHg. Pulmonic Valve: The pulmonic valve is not well visualized. There is no evidence of pulmonic regurgitation. Pericardium: A trivial pericardial effusion is visualized. Aorta: There is no dilatation of the ascending aorta. There is no dilatation of the aortic root. Venous: The inferior vena cava appears normal in size. There is a greater than 50% respiratory change in the inferior vena cava dimension. Measurements Chambers 2D Name Value Normal Range IVSd (2D) 0.83 cm (0.6 - 1.1) LVPWd (2D) 0.98 cm (0.6 - 1.1) LVIDd (2D) 3.71 cm (3.7 - 5.6) LVIDs (2D) 2.93 cm (2 - 3.8) LV FS (2D) 21.12 % - EF Teichholz (2D) 43.71 % - Ao root diameter (2D) 3.02 cm (2 - 3.7) Volumes/Mass Name Value Normal Range LA ESV SP 4CH (A/L) 36.8 ml - LA ESV SP 2CH (A/L) 45.89 ml - LA ESV BP (A/L) 42.35 ml - LA ESV BP (A/L) index 26.63 ml/m2 - LA ESV SP 4CH (MOD) 34.42 ml - LA ESV SP 2CH (MOD) 44.21 ml - LA ESV BP (MOD) 39.82 ml - LA ESV BP (MOD) index 25.05 ml/m2 - Aortic Valve Name Value Normal Range LVOT diameter 1.63 cm - Tricuspid Valve Name Value Normal Range TR Vmax 2.56 m/sec - TR peak gradient 26 mmHg - RAP 3 mmHg - RVSP 29 mmHg - IVC diameter 1.83 cm (1.2 - 2.3) Dela Cruz/IV: Voiding Method Incontinent IV Catheter Type [Forearm] Peripheral IV IV Catheter Type [Left Forearm INT / Saline Lock ] IV Catheter Type [Right Peripheral IV Antecubital] IV Catheter Type [Right Hand] Peripheral IV IV Catheter Type [Right Wrist] Peripheral IV IV Catheter Type [Left Wrist] Peripheral IV IV Catheter Type [Left Peripheral IV Antecubital] IV Catheter Type [Right INT / Saline Lock Forearm] IV Catheter Type [Left Hand] Peripheral IV Active Medications - Current Medications Current Medications: Generic Name Dose Route Start Last Admin Trade Name Freq PRN Reason Stop Dose Admin Acetaminophen 650 mg 12/06/19 10:25 02/22/20 10:16 Tylenol FEEDTUBE 650 mg Q6H PRN Administration TEMP >/=100.3 Acetylcysteine 200 mg 02/16/20 20:00 02/22/20 09:09 Mucomyst Inhalation INHALATION 200 mg Q12HRT LUCHO Administration Alprazolam 1 mg 02/21/20 18:24 02/22/20 10:16 Xanax PO 1 mg Q8H PRN Administration Anxiety Lipase/Protease/Amylase 1 each 11/23/19 11:[address] 10,500 Unit FEEDTUBE PRN PRN Use w/ sod bicarb for FT Bisacodyl 10 mg 02/06/20 13:57 Dulcolax OK QDAY PRN Constipation unrelieved by MOM Docusate Sodium 100 mg 02/18/20 22:00 02/22/20 10:16 Colace FEEDTUBE 100 mg BID LUCHO Administration Glycopyrrolate 2 mg 12/31/19 20:00 02/22/20 14:09 Robinul PO 2 mg TID LUCHO Administration Haloperidol Lactate 2 mg 02/21/20 10:51 02/21/20 12:34 Haldol FEEDTUBE 2 mg Q6H PRN Administration Agitation Hydralazine HCl 10 mg 11/24/19 00:45 12/18/19 13:25 Apresoline IV 10 mg Q6H PRN Administration SBP > 160 Hydroxyzine Pamoate 25 mg 12/06/19 10:00 02/22/20 10:38 Vistaril PO 25 mg BID LUCHO Administration Lansoprazole 30 mg 11/27/19 10:00 02/22/20 10:18 Prevacid Solutab FEEDTUBE 30 mg QDAY LUCHO Administration Levalbuterol HCl 0.63 mg 02/17/20 00:00 02/22/20 09:09 Xopenex IH 0.63 mg Q8HRT LUCHO Administration Levetiracetam 500 mg 11/29/19 10:00 02/22/20 10:17 Keppra PO 500 mg BID LUCHO Administration Mirtazapine 30 mg 12/06/19 10:00 02/22/20 10:22 Remeron PO 30 mg DAILY LUCHO Administration Nicotine 21 mg 02/16/20 13:00 02/22/20 10:15 Habitrol TD 21 mg QDAY LUCHO Administration Ondansetron HCl 4 mg 12/10/19 07:53 02/05/20 22:06 Zofran IV 4 mg Q4H PRN Administration Nausea And Vomiting Polyethylene Glycol 17 gm 02/06/20 13:57 Miralax 3350 PO QDAY PRN Constipation Quetiapine Fumarate 100 mg 01/09/20 21:41 02/21/20 22:39 Seroquel FEEDTUBE 100 mg QHS LUCHO Administration Scopolamine 1 each 02/08/20 15:00 02/20/20 17:13 Transderm-Scop TD 1 each Q3D LUCHO Administration Sertraline HCl 25 mg 01/01/20 10:00 02/22/20 10:17 Zoloft PO 25 mg QDAY LUCHO Administration Simple Syrup 15 ml 11/23/19 11:50 Simple Syrup FEEDTUBE PRN PRN Hypoglycemia BG<70 Simple Syrup 30 ml 11/23/19 11:50 Simple Syrup FEEDTUBE PRN PRN Hypoglycemia Sodium Bicarbonate 325 mg 11/23/19 11:50 Sodium Bicarbonate FEEDTUBE PRN PRN For Clogged Feeding Tube Nutrition/Malnutrition Assess - Dietary Evaluation Nutrition/Malnutrition Findings: Nutrition Notes Start: 11/23/19 11:29 Freq: Status: Active Protocol: Document 02/20/20 11:56 LM (Rec: 02/20/20 12:10 LM [email or web address]) Nutrition Notes Initial or Follow up Reassessment Current Diagnosis Hypertension Other Pertinent Diagnosis Cardaic arrest, ETOH dependence, UTI Current Diet Jevity 1.2 at 60ml/hr Labs/Tests Reviewed Pertinent Medications Reviewed Height 5 ft 6 in Weight 45.6 kg Holt Body Weight (kg) 59.09 BMI 16.2 Subjective/Other Information TF running at goal. Percent of energy/protein needs met: 99%/100% Burn Absent Trauma Absent GI Symptoms None Current % PO Negligible Interpretation of Weight Loss (severe) >2% in 1 week Muscle Mass Mild Depletion (non-severe) #2 Nutrition Diagnosis Malnutrition Diagnosis Progress(for reassessment Continues documentation) #1 Nutrition Diagnosis Inadequate oral intake Diagnosis Progress(for reassessment Continues documentation) Is patient on ventilator? No Is Patient Ambulatory and/or Out of Bed No REE-([facility]-confined to bed) 1291.932 Kcal/Kg value to use for calculation 38 Approximate Energy Requirements Using 1733 kcal/Kg Calculation Used for Recommendations Kcal/kg Additional Notes Protein: 60-75g (1.2-1.5g/kg) Fluid: 1 ml/kcal Nutrition Intervention Change Diet Order: Continue TF Nutrition Support: Change to Jevity 1.2 at 60ml/ hr Flush 100ml q4h Kcal 1,728 Protein (gm) 80 Fluid (mL) 1,162 Goal #1 TF tolerance Goal #2 Meet at least 80% of energy and protein needs via TF Anticipated Discharge Needs: TF Follow-Up By: 02/26/20 Additional Comments F/U for TF tolerance, wt
[2020-02-22] MEDS: QUEtiapine 100 MG TAB FEEDTUBE SCH (22:25)
[2020-02-23] MEDS: ALPRAZolam 1 MG TAB PO PRN (01:36)
[2020-02-23] MEDS: LEVALBUTEROL 0.63 MG/3 ML NEBU IH SCH ×5 (02:36→20:24)
[2020-02-23] MEDS: ACETYLCYSTEINE 20% 200 MG/1 ML *FOR INHALATION USE INHALATION SCH ×2 (09:16→21:23)
[2020-02-23] MEDS: GLYCOPYRROLATE 1 MG TAB PO SCH ×3 (10:28→20:59)
[2020-02-23] MEDS: LANSOPRAZOLE 30 MG SOLUTAB FEEDTUBE SCH (10:28)
[2020-02-23] MEDS: DOCUSATE SODIUM 100 MG/10 ML ORAL LIQD FEEDTUBE SCH ×2 (10:28→21:04)
[2020-02-23] MEDS: NICOTINE 21 MG/24 HR PATCH TD SCH (10:28)
[2020-02-23] MEDS: levETIRAcetam 500 MG/5 ML ORAL LIQD PO SCH ×2 (10:28→21:04)
[2020-02-23] MEDS: MIRTAZAPINE 30 MG TAB PO SCH (10:29)
[2020-02-23] MEDS: SERTRALINE 50 MG TAB PO SCH (10:29)
[2020-02-23] MEDS: hydrOXYzine PAMOATE 25 MG CAP PO SCH ×2 (10:31→21:04)
--- NOTE | 2020-02-23 10:51 | Progress Note ---
Assessment and Plan Acute cardiopulmonary arrest with ROSC Acute hypoxemic respiratory failure s/p MVS s/p Tracheostomy Oropharyngeal dysphagia s/p PEG MRSA Bacteremia- treated MRSA pneumonia-treated Acute [id number] encephalopathy Metabolic acidosis/alcoholic acidosis/Lactic acidosis( resolved) Ischemic hepatitis Erythrocytosis Tobacco use disorder Alcohol use Disorder Continue all current care as documented below Continue all supportive care Fall precautions, remains impulsive Discharge planning -CBC, BMP prn -Replace and correct electrolytes as indicated -Trach care, airway clearance, secretion management(continue scopolamine patch and Robinul) -CXR, ABG prn -Weaning trials as tolerated- PMV and capping as tolerated -Continue contact isolation for MRSA -Trend WCC and temperature curve -PT/OT -Supportive transfusions as indicated for HgB <7g/dL -Continue aspiration precautions, HOB>40 -Continue enteric nutritional support at goal rate. -Continue to monitor glycemic control, with target blood glucose 140-180 mg/dL while critically ill. -Avoid hypoglycemia - Continue to wean supplemental oxygen for target O2 sat's > 90% -Continue thiamine, multivitamin and electrolyte replacement -Continue to avoid nephrotoxins, adjust all medications for GFR and CrCL - Continue bronchodilators with pulmonary hygiene - Continue to maintain of sleep-wake cycle, avoid delirium - Continue mobility protocol and skin assessment per protocol for pressure ulcer prevention - Continue to monitor for clinical seizures - continue other care per attending / other consultants CONDITION: FAIR PROGNOSIS: FAIR CODE STATUS: DNAR Subjective Date of service: 02/23/20 Principal diagnosis: Ac cardiopulmonary arrest; Ac hypoxemic resp failure; Acute encephalopathy Interval history: Patient is seen today for: Acute cardiopulmonary arrest with ROSC; Acute hypoxemic respiratory failure; Acute metabolic-toxic encephalopathy; Ischemic hepatitis; Leucocytosis with lactic acidosis; Tobacco use disorder; Alcohol use Disorder; s/p tracheostomy; s/p PEG Seen and examined at bedside; 24hour events reviewed; nursing and respiratory care staff consulted; no adverse overnight events reported to me; resting peacefully in bed; continues to tolerate PMV/capping trials, No fevers, no vomiting, continues to tolerate tube feedings Awake and alert, responsive but episodes of confusion No new issues Objective Vital Signs - 12hr 02/22/20 02/22/20 02/23/20 22:53 23:21 05:10 Temperature 98.2 F Pulse Rate 83 46 L Pulse Rate [ Anterior Bilateral Throughout] Respiratory 16 Rate Respiratory Rate [Anterior Bilateral Throughout] Blood Pressure 126/76 O2 Sat by Pulse 89 Oximetry O2 Sat by Pulse 100 Oximetry [ Assessment] 02/23/20 02/23/20 02/23/20 07:21 08:59 09:16 Temperature 97.5 F L Pulse Rate 99 H 91 H Pulse Rate [ 123 H Anterior Bilateral Throughout] Respiratory 20 Rate Respiratory 20 Rate [Anterior Bilateral Throughout] Blood Pressure 136/106 O2 Sat by Pulse 90 Oximetry O2 Sat by Pulse Oximetry [ Assessment] 02/23/20 09:33 Temperature Pulse Rate Pulse Rate [ Anterior Bilateral Throughout] Respiratory Rate Respiratory Rate [Anterior Bilateral Throughout] Blood Pressure O2 Sat by Pulse 100 Oximetry O2 Sat by Pulse Oximetry [ Assessment] Constitutional: no acute distress, alert, agitated, appears uncomfortable, other (Confused and agitating.) Eyes: non-icteric ENT: oropharynx moist, other (s/p trach) Neck: supple, no lymphadenopathy, no JVD Effort: normal Ascultation: Bilateral: diminished breath sounds, rhonchi Percussion: Bilateral: not dull Cardiovascular: regular rate and rhythm (tachycardia), other (S1,S2) Gastrointestinal: normoactive bowel sounds, soft, non-tender, non-distended Integumentary: normal Extremities: no cyanosis, no edema, pulses normal, no ischemia or petechiae Neurologic: non-focal exam, pupils equal and round, unable to assess Psychiatric: anxious, other (Agitated.) CBC and BMP: 02/17/20 07:57 02/17/20 07:57 ABG, PT/INR, D-dimer: ABG ABG pH 7.429 pH Units (7.350-7.450) 01/09/20 08:51 ABG pCO2 39.1 mm Hg 01/09/20 08:51 ABG pO2 94.3 mm Hg (80.0-90.0) H 01/09/20 08:51 ABG O2 Saturation 97.4 % (95.0-99.0) 01/09/20 08:51 PT/INR, D-dimer PT 17.0 Sec. (12.2-14.9) H 11/23/19 03:47 INR 1.36 (0.87-1.13) H 11/23/19 03:47 Abnormal lab findings: Abnormal Labs 03/02/0511/22/19 11/22/19 23:17 23:18 23:27 WBC 21.2 H RBC 3.59 L Hgb 9.8 L Hct MCH 27 L RDW 18.6 H Plt Count 454 H Lymph % (Auto) [place] % (Auto) [place] # Baso # Seg Neutrophils % Seg Neuts % (Manual) 86.0 H Lymphocytes % (Manual) 9.0 L Monocytes % (Manual) Seg Neutrophils # Seg Neutrophils # Man 18.2 H Lymphocytes # (Manual) Monocytes # (Manual) 1.1 H Eosinophils # (Manual) Basophils # (Manual) PT INR APTT ABG pH ABG pO2 ABG HCO3 ABG O2 Saturation ABG Base Excess ABG Hemoglobin Oxyhemoglobin Sodium Potassium Chloride Carbon Dioxide BUN Creatinine Glucose POC Glucose 53 L Lactic Acid Calcium Ionized Calcium Phosphorus Magnesium Total Bilirubin AST ALT Alkaline Phosphatase Ammonia Total Creatine Kinase CK-MB (CK-2) CK-MB (CK-2) Rel Index Total Protein Albumin Urine WBC (Auto) 40.0 H Vancomycin Trough Salicylates Acetaminophen Plasma/Serum Alcohol Crossmatch 11/22/19 11/22/19 11/22/19 23:27 23:27 23:27 WBC RBC Hgb Hct MCH RDW Plt Count Lymph % (Auto) [place] % (Auto) [place] # Baso # Seg Neutrophils % Seg Neuts % (Manual) Lymphocytes % (Manual) Monocytes % (Manual) Seg Neutrophils # Seg Neutrophils # Man Lymphocytes # (Manual) Monocytes # (Manual) Eosinophils # (Manual) Basophils # (Manual) PT INR APTT ABG pH ABG pO2 ABG HCO3 ABG O2 Saturation ABG Base Excess ABG Hemoglobin Oxyhemoglobin Sodium Potassium 2.4 L* Chloride 85.1 L Carbon Dioxide 19 L BUN Creatinine 0.5 L Glucose 261 H POC Glucose Lactic Acid Calcium Ionized Calcium Phosphorus Magnesium Total Bilirubin AST 609 H ALT 152 H Alkaline Phosphatase 160 H Ammonia 117.0 H Total Creatine Kinase 139 H CK-MB (CK-2) 8.3 H CK-MB (CK-2) Rel Index 5.9 H Total Protein Albumin 3.6 L Urine WBC (Auto) Vancomycin Trough Salicylates < 0.3 L Acetaminophen Plasma/Serum Alcohol Crossmatch 11/22/19 11/22/19 11/23/19 23:27 23:27 01:10 WBC RBC Hgb Hct MCH RDW Plt Count Lymph % (Auto) [place] % (Auto) [place] # Baso # Seg Neutrophils % Seg Neuts % (Manual) Lymphocytes % (Manual) Monocytes % (Manual) Seg Neutrophils # Seg Neutrophils # Man Lymphocytes # (Manual) Monocytes # (Manual) Eosinophils # (Manual) Basophils # (Manual) PT INR APTT ABG pH 7.273 L ABG pO2 209.7 H ABG HCO3 ABG O2 Saturation 99.2 H ABG Base Excess -3.9 L ABG Hemoglobin 10.6 L Oxyhemoglobin 93.9 L Sodium Potassium Chloride Carbon Dioxide BUN Creatinine Glucose POC Glucose Lactic Acid Calcium Ionized Calcium Phosphorus Magnesium Total Bilirubin AST ALT Alkaline Phosphatase Ammonia Total Creatine Kinase CK-MB (CK-2) CK-MB (CK-2) Rel Index Total Protein Albumin Urine WBC (Auto) Vancomycin Trough Salicylates Acetaminophen < 5.0 L Plasma/Serum Alcohol 0.08 H Crossmatch 11/23/19 11/23/19 11/23/19 01:19 01:19 03:47 WBC RBC Hgb Hct MCH RDW Plt Count Lymph % (Auto) [place] % (Auto) [place] # Baso # Seg Neutrophils % Seg Neuts % (Manual) Lymphocytes % (Manual) Monocytes % (Manual) Seg Neutrophils # Seg Neutrophils # Man Lymphocytes # (Manual) Monocytes # (Manual) Eosinophils # (Manual) Basophils # (Manual) PT 16.3 H INR 1.29 H APTT ABG pH ABG pO2 ABG HCO3 ABG O2 Saturation ABG Base Excess ABG Hemoglobin Oxyhemoglobin Sodium Potassium Chloride Carbon Dioxide BUN Creatinine Glucose POC Glucose Lactic Acid 2.10 H* 5.00 H* Calcium Ionized Calcium Phosphorus Magnesium Total Bilirubin AST ALT Alkaline Phosphatase Ammonia Total Creatine Kinase CK-MB (CK-2) CK-MB (CK-2) Rel Index Total Protein Albumin Urine WBC (Auto) Vancomycin Trough Salicylates Acetaminophen Plasma/Serum Alcohol Crossmatch 11/23/19 11/23/19 11/23/19 03:47 03:47 04:53 WBC RBC Hgb 9.4 L Hct MCH RDW Plt Count Lymph % (Auto) [place] % (Auto) [place] # Baso # Seg Neutrophils % Seg Neuts % (Manual) Lymphocytes % (Manual) Monocytes % (Manual) Seg Neutrophils # Seg Neutrophils # Man Lymphocytes # (Manual) Monocytes # (Manual) Eosinophils # (Manual) Basophils # (Manual) PT 17.0 H INR 1.36 H APTT 128.2 H* ABG pH ABG pO2 ABG HCO3 ABG O2 Saturation ABG Base Excess ABG Hemoglobin Oxyhemoglobin Sodium Potassium Chloride Carbon Dioxide 18 L BUN Creatinine 0.5 L Glucose 105 H POC Glucose Lactic Acid Calcium 8.3 L Ionized Calcium Phosphorus 2.40 L Magnesium Total Bilirubin 1.30 H AST 761 H ALT 158 H Alkaline Phosphatase 143 H Ammonia Total Creatine Kinase CK-MB (CK-2) CK-MB (CK-2) Rel Index Total Protein Albumin 2.8 L Urine WBC (Auto) Vancomycin Trough Salicylates Acetaminophen Plasma/Serum Alcohol Crossmatch 11/23/19 11/23/19 11/23/19 05:12 06:32 06:32 WBC 16.8 H RBC 3.31 L Hgb 8.9 L Hct 28.7 L MCH 27 L RDW 18.6 H Plt Count Lymph % (Auto) [place] % (Auto) [place] # Baso # Seg Neutrophils % Seg Neuts % (Manual) 94.0 H Lymphocytes % (Manual) 1.0 L Monocytes % (Manual) Seg Neutrophils # Seg Neutrophils # Man 15.8 H Lymphocytes # (Manual) 0.2 L Monocytes # (Manual) Eosinophils # (Manual) Basophils # (Manual) PT INR APTT ABG pH ABG pO2 ABG HCO3 ABG O2 Saturation ABG Base Excess -3.2 L ABG Hemoglobin 9.0 L Oxyhemoglobin 93.6 L Sodium Potassium Chloride Carbon Dioxide BUN Creatinine Glucose POC Glucose Lactic Acid Calcium Ionized Calcium 4.5 L Phosphorus Magnesium Total Bilirubin AST ALT Alkaline Phosphatase Ammonia Total Creatine Kinase CK-MB (CK-2) CK-MB (CK-2) Rel Index Total Protein Albumin Urine WBC (Auto) Vancomycin Trough Salicylates Acetaminophen Plasma/Serum Alcohol Crossmatch 11/23/19 11/24/19 11/24/19 06:32 04:35 04:35 WBC RBC Hgb Hct MCH RDW Plt Count Lymph % (Auto) [place] % (Auto) [place] # Baso # Seg Neutrophils % Seg Neuts % (Manual) Lymphocytes % (Manual) Monocytes % (Manual) Seg Neutrophils # Seg Neutrophils # Man Lymphocytes # (Manual) Monocytes # (Manual) Eosinophils # (Manual) Basophils # (Manual) PT INR APTT ABG pH ABG pO2 ABG HCO3 ABG O2 Saturation ABG Base Excess ABG Hemoglobin Oxyhemoglobin Sodium Potassium Chloride Carbon Dioxide BUN Creatinine Glucose POC Glucose Lactic Acid 3.30 H* Calcium Ionized Calcium Phosphorus Magnesium 1.40 L Total Bilirubin AST ALT Alkaline Phosphatase Ammonia 98.0 H Total Creatine Kinase CK-MB (CK-2) CK-MB (CK-2) Rel Index Total Protein Albumin Urine WBC (Auto) Vancomycin Trough Salicylates Acetaminophen Plasma/Serum Alcohol Crossmatch 11/24/19 11/25/19 11/25/19 05:22 04:34 05:05 WBC 17.3 H RBC 2.88 L Hgb 7.8 L Hct 24.6 L MCH 27 L RDW 18.5 H Plt Count Lymph % (Auto) 7.7 L [place] % (Auto) 9.7 H [place] # 1.7 H Baso # Seg Neutrophils % 82.2 H Seg Neuts % (Manual) Lymphocytes % (Manual) Monocytes % (Manual) Seg Neutrophils # 14.2 H Seg Neutrophils # Man Lymphocytes # (Manual) Monocytes # (Manual) Eosinophils # (Manual) Basophils # (Manual) PT INR APTT ABG pH 7.475 H ABG pO2 ABG HCO3 29.4 H 32.3 H ABG O2 Saturation ABG Base Excess 5.4 H 6.9 H ABG Hemoglobin 9.0 L 10.6 L Oxyhemoglobin 94.3 L Sodium Potassium Chloride Carbon Dioxide BUN Creatinine Glucose POC Glucose Lactic Acid Calcium Ionized Calcium Phosphorus Magnesium Total Bilirubin AST ALT Alkaline Phosphatase Ammonia Total Creatine Kinase CK-MB (CK-2) CK-MB (CK-2) Rel Index Total Protein Albumin Urine WBC (Auto) Vancomycin Trough Salicylates Acetaminophen Plasma/Serum Alcohol Crossmatch 11/25/19 11/25/19 11/26/19 05:05 22:46 03:31 WBC RBC Hgb Hct MCH RDW Plt Count Lymph % (Auto) [place] % (Auto) [place] # Baso # Seg Neutrophils % Seg Neuts % (Manual) Lymphocytes % (Manual) Monocytes % (Manual) Seg Neutrophils # Seg Neutrophils # Man Lymphocytes # (Manual) Monocytes # (Manual) Eosinophils # (Manual) Basophils # (Manual) PT INR APTT ABG pH 7.459 H ABG pO2 ABG HCO3 34.2 H ABG O2 Saturation ABG Base Excess 9.4 H ABG Hemoglobin 7.6 L Oxyhemoglobin 94.8 L Sodium 152 H D 147 H Potassium 2.3 L* D 2.8 L* D Chloride 107.8 H Carbon Dioxide 31 H D 33 H BUN Creatinine 0.6 L 0.6 L Glucose 148 H 177 H POC Glucose Lactic Acid Calcium Ionized Calcium Phosphorus Magnesium Total Bilirubin AST 105 H ALT 71 H Alkaline Phosphatase 155 H Ammonia Total Creatine Kinase CK-MB (CK-2) CK-MB (CK-2) Rel Index Total Protein 5.2 L D Albumin 2.9 L Urine WBC (Auto) Vancomycin Trough Salicylates Acetaminophen Plasma/Serum Alcohol Crossmatch 11/26/19 11/26/19 11/27/19 08:24 08:24 04:20 WBC 12.0 H RBC 3.00 L Hgb 8.0 L 9.3 L Hct 25.9 L 29.7 L MCH 27 L RDW 18.5 H Plt Count Lymph % (Auto) [place] % (Auto) [place] # Baso # Seg Neutrophils % Seg Neuts % (Manual) 89.0 H Lymphocytes % (Manual) 4.0 L Monocytes % (Manual) Seg Neutrophils # Seg Neutrophils # Man 10.7 H Lymphocytes # (Manual) 0.5 L Monocytes # (Manual) Eosinophils # (Manual) Basophils # (Manual) PT INR APTT ABG pH ABG pO2 ABG HCO3 ABG O2 Saturation ABG Base Excess ABG Hemoglobin Oxyhemoglobin Sodium 146 H Potassium 3.4 L D Chloride Carbon Dioxide BUN Creatinine 0.5 L Glucose 165 H POC Glucose Lactic Acid Calcium Ionized Calcium Phosphorus Magnesium Total Bilirubin AST 57 H ALT Alkaline Phosphatase 166 H Ammonia Total Creatine Kinase CK-MB (CK-2) CK-MB (CK-2) Rel Index Total Protein Albumin 2.9 L Urine WBC (Auto) Vancomycin Trough Salicylates Acetaminophen Plasma/Serum Alcohol Crossmatch 11/27/19 11/27/19 11/27/19 04:28 04:28 04:42 WBC RBC Hgb Hct MCH RDW Plt Count Lymph % (Auto) [place] % (Auto) [place] # Baso # Seg Neutrophils % Seg Neuts % (Manual) Lymphocytes % (Manual) Monocytes % (Manual) Seg Neutrophils # Seg Neutrophils # Man Lymphocytes # (Manual) Monocytes # (Manual) Eosinophils # (Manual) Basophils # (Manual) PT INR APTT ABG pH 7.470 H ABG pO2 74.0 L ABG HCO3 33.8 H ABG O2 Saturation ABG Base Excess 9.1 H ABG Hemoglobin 8.7 L Oxyhemoglobin 94.7 L Sodium 146 H Potassium 2.9 L* Chloride Carbon Dioxide BUN 25 H Creatinine Glucose 213 H POC Glucose Lactic Acid Calcium Ionized Calcium Phosphorus 1.00 L Magnesium Total Bilirubin AST ALT Alkaline Phosphatase Ammonia Total Creatine Kinase CK-MB (CK-2) CK-MB (CK-2) Rel Index Total Protein Albumin Urine WBC (Auto) Vancomycin Trough Salicylates Acetaminophen Plasma/Serum Alcohol Crossmatch 11/27/19 11/27/19 11/27/19 05:37 12:20 15:46 WBC RBC Hgb Hct MCH RDW Plt Count Lymph % (Auto) [place] % (Auto) [place] # Baso # Seg Neutrophils % Seg Neuts % (Manual) Lymphocytes % (Manual) Monocytes % (Manual) Seg Neutrophils # Seg Neutrophils # Man Lymphocytes # (Manual) Monocytes # (Manual) Eosinophils # (Manual) Basophils # (Manual) PT INR APTT ABG pH ABG pO2 ABG HCO3 ABG O2 Saturation ABG Base Excess ABG Hemoglobin Oxyhemoglobin Sodium 146 H Potassium 3.5 L D Chloride Carbon Dioxide BUN 24 H Creatinine 0.6 L Glucose 187 H POC Glucose 117 H 220 H Lactic Acid Calcium Ionized Calcium Phosphorus Magnesium Total Bilirubin AST ALT Alkaline Phosphatase Ammonia Total Creatine Kinase CK-MB (CK-2) CK-MB (CK-2) Rel Index Total Protein Albumin Urine WBC (Auto) Vancomycin Trough Salicylates Acetaminophen Plasma/Serum Alcohol Crossmatch 11/27/19 11/28/19 11/28/19 17:28 05:00 05:02 WBC RBC Hgb Hct MCH RDW Plt Count Lymph % (Auto) [place] % (Auto) [place] # Baso # Seg Neutrophils % Seg Neuts % (Manual) Lymphocytes % (Manual) Monocytes % (Manual) Seg Neutrophils # Seg Neutrophils # Man Lymphocytes # (Manual) Monocytes # (Manual) Eosinophils # (Manual) Basophils # (Manual) PT INR APTT ABG pH ABG pO2 72.4 L ABG HCO3 33.6 H ABG O2 Saturation 94.1 L ABG Base Excess 7.3 H ABG Hemoglobin Oxyhemoglobin 91.8 L Sodium 146 H Potassium 3.3 L Chloride Carbon Dioxide BUN 25 H Creatinine 0.6 L Glucose 176 H POC Glucose 198 H Lactic Acid Calcium Ionized Calcium Phosphorus Magnesium Total Bilirubin AST ALT Alkaline Phosphatase Ammonia Total Creatine Kinase CK-MB (CK-2) CK-MB (CK-2) Rel Index Total Protein Albumin Urine WBC (Auto) Vancomycin Trough Salicylates Acetaminophen Plasma/Serum Alcohol Crossmatch 11/28/19 11/28/19 11/29/19 05:02 18:55 10:43 WBC 15.2 H 19.0 H RBC 3.06 L 3.01 L Hgb 8.3 L 8.3 L Hct 27.0 L 26.4 L MCH 27 L RDW 19.0 H 19.7 H Plt Count 479 H 611 H Lymph % (Auto) [place] % (Auto) [place] # Baso # Seg Neutrophils % Seg Neuts % (Manual) 92.0 H Lymphocytes % (Manual) 2.0 L Monocytes % (Manual) Seg Neutrophils # Seg Neutrophils # Man 14.0 H Lymphocytes # (Manual) 0.3 L Monocytes # (Manual) Eosinophils # (Manual) Basophils # (Manual) PT INR APTT ABG pH ABG pO2 ABG HCO3 ABG O2 Saturation ABG Base Excess ABG Hemoglobin Oxyhemoglobin Sodium Potassium Chloride Carbon Dioxide BUN Creatinine Glucose POC Glucose 138 H Lactic Acid Calcium Ionized Calcium Phosphorus Magnesium Total Bilirubin AST ALT Alkaline Phosphatase Ammonia Total Creatine Kinase CK-MB (CK-2) CK-MB (CK-2) Rel Index Total Protein Albumin Urine WBC (Auto) Vancomycin Trough Salicylates Acetaminophen Plasma/Serum Alcohol Crossmatch 11/29/19 11/29/19 11/29/19 10:43 12:27 19:25 WBC RBC Hgb Hct MCH RDW Plt Count Lymph % (Auto) [place] % (Auto) [place] # Baso # Seg Neutrophils % Seg Neuts % (Manual) Lymphocytes % (Manual) Monocytes % (Manual) Seg Neutrophils # Seg Neutrophils # Man Lymphocytes # (Manual) Monocytes # (Manual) Eosinophils # (Manual) Basophils # (Manual) PT INR APTT ABG pH ABG pO2 ABG HCO3 ABG O2 Saturation ABG Base Excess ABG Hemoglobin Oxyhemoglobin Sodium Potassium 2.8 L* Chloride Carbon Dioxide BUN 20 H Creatinine 0.5 L Glucose 121 H POC Glucose 128 H 120 H Lactic Acid Calcium Ionized Calcium Phosphorus Magnesium Total Bilirubin AST ALT Alkaline Phosphatase Ammonia Total Creatine Kinase CK-MB (CK-2) CK-MB (CK-2) Rel Index Total Protein Albumin Urine WBC (Auto) Vancomycin Trough Salicylates Acetaminophen Plasma/Serum Alcohol Crossmatch 11/29/19 11/30/19 11/30/19 23:46 04:10 05:02 WBC RBC Hgb Hct MCH RDW Plt Count Lymph % (Auto) [place] % (Auto) [place] # Baso # Seg Neutrophils % Seg Neuts % (Manual) Lymphocytes % (Manual) Monocytes % (Manual) Seg Neutrophils # Seg Neutrophils # Man Lymphocytes # (Manual) Monocytes # (Manual) Eosinophils # (Manual) Basophils # (Manual) PT INR APTT ABG pH ABG pO2 76.3 L ABG HCO3 32.5 H ABG O2 Saturation ABG Base Excess 6.9 H ABG Hemoglobin 8.0 L Oxyhemoglobin 92.6 L Sodium Potassium Chloride Carbon Dioxide BUN Creatinine Glucose POC Glucose 116 H 128 H Lactic Acid Calcium Ionized Calcium Phosphorus Magnesium Total Bilirubin AST ALT Alkaline Phosphatase Ammonia Total Creatine Kinase CK-MB (CK-2) CK-MB (CK-2) Rel Index Total Protein Albumin Urine WBC (Auto) Vancomycin Trough Salicylates Acetaminophen Plasma/Serum Alcohol Crossmatch 11/30/19 11/30/19 11/30/19 05:25 05:25 12:59 WBC 18.4 H RBC 3.10 L Hgb 8.5 L Hct 27.5 L MCH 27 L RDW 20.9 H Plt Count 691 H Lymph % (Auto) 7.1 L [place] % (Auto) 7.7 H [place] # 1.4 H Baso # Seg Neutrophils % 83.4 H Seg Neuts % (Manual) Lymphocytes % (Manual) Monocytes % (Manual) Seg Neutrophils # 15.4 H Seg Neutrophils # Man Lymphocytes # (Manual) Monocytes # (Manual) Eosinophils # (Manual) Basophils # (Manual) PT INR APTT ABG pH ABG pO2 ABG HCO3 ABG O2 Saturation ABG Base Excess ABG Hemoglobin Oxyhemoglobin Sodium 146 H Potassium Chloride 107.2 H Carbon Dioxide BUN Creatinine 0.5 L Glucose 132 H POC Glucose 124 H Lactic Acid Calcium Ionized Calcium Phosphorus Magnesium Total Bilirubin AST 246 H ALT 274 H Alkaline Phosphatase 203 H Ammonia Total Creatine Kinase CK-MB (CK-2) CK-MB (CK-2) Rel Index Total Protein 5.4 L Albumin 2.9 L Urine WBC (Auto) Vancomycin Trough Salicylates Acetaminophen Plasma/Serum Alcohol Crossmatch 11/30/19 12/01/19 12/01/19 17:53 00:05 05:10 WBC RBC Hgb Hct MCH RDW Plt Count Lymph % (Auto) [place] % (Auto) [place] # Baso # Seg Neutrophils % Seg Neuts % (Manual) Lymphocytes % (Manual) Monocytes % (Manual) Seg Neutrophils # Seg Neutrophils # Man Lymphocytes # (Manual) Monocytes # (Manual) Eosinophils # (Manual) Basophils # (Manual) PT INR APTT ABG pH ABG pO2 ABG HCO3 ABG O2 Saturation ABG Base Excess ABG Hemoglobin Oxyhemoglobin Sodium Potassium Chloride Carbon Dioxide BUN Creatinine Glucose POC Glucose 113 H 143 H 145 H Lactic Acid Calcium Ionized Calcium Phosphorus Magnesium Total Bilirubin AST ALT Alkaline Phosphatase Ammonia Total Creatine Kinase CK-MB (CK-2) CK-MB (CK-2) Rel Index Total Protein Albumin Urine WBC (Auto) Vancomycin Trough Salicylates Acetaminophen Plasma/Serum Alcohol Crossmatch 12/01/19 12/01/19 12/01/19 05:33 08:23 08:23 WBC 22.7 H RBC 2.88 L Hgb 7.9 L Hct 25.2 L MCH 27 L RDW 21.0 H Plt Count 732 H Lymph % (Auto) [place] % (Auto) [place] # Baso # Seg Neutrophils % Seg Neuts % (Manual) 91.0 H Lymphocytes % (Manual) 3.0 L Monocytes % (Manual) Seg Neutrophils # Seg Neutrophils # Man 20.7 H Lymphocytes # (Manual) 0.7 L Monocytes # (Manual) 1.1 H Eosinophils # (Manual) Basophils # (Manual) PT INR APTT ABG pH ABG pO2 68.6 L ABG HCO3 34.1 H ABG O2 Saturation ABG Base Excess 9.0 H ABG Hemoglobin 6.5 L Oxyhemoglobin 94.7 L Sodium Potassium Chloride Carbon Dioxide BUN Creatinine 0.5 L Glucose 125 H POC Glucose Lactic Acid Calcium Ionized Calcium Phosphorus Magnesium Total Bilirubin AST ALT Alkaline Phosphatase Ammonia Total Creatine Kinase CK-MB (CK-2) CK-MB (CK-2) Rel Index Total Protein Albumin Urine WBC (Auto) Vancomycin Trough Salicylates Acetaminophen Plasma/Serum Alcohol Crossmatch 12/01/19 12/01/19 12/01/19 13:21 17:54 20:59 WBC RBC Hgb Hct MCH RDW Plt Count Lymph % (Auto) [place] % (Auto) [place] # Baso # Seg Neutrophils % Seg Neuts % (Manual) Lymphocytes % (Manual) Monocytes % (Manual) Seg Neutrophils # Seg Neutrophils # Man Lymphocytes # (Manual) Monocytes # (Manual) Eosinophils # (Manual) Basophils # (Manual) PT INR APTT ABG pH ABG pO2 78.3 L ABG HCO3 33.8 H ABG O2 Saturation 94.9 L ABG Base Excess 7.9 H ABG Hemoglobin 11.5 L Oxyhemoglobin 92.3 L Sodium Potassium Chloride Carbon Dioxide BUN Creatinine Glucose POC Glucose 111 H 115 H Lactic Acid Calcium Ionized Calcium Phosphorus Magnesium Total Bilirubin AST ALT Alkaline Phosphatase Ammonia Total Creatine Kinase CK-MB (CK-2) CK-MB (CK-2) Rel Index Total Protein Albumin Urine WBC (Auto) Vancomycin Trough Salicylates Acetaminophen Plasma/Serum Alcohol Crossmatch 12/02/19 12/03/19 12/04/19 12:55 20:00 04:26 WBC 15.2 H RBC 2.69 L Hgb 7.4 L Hct 23.6 L MCH 27 L RDW 19.9 H Plt Count 838 H Lymph % (Auto) [place] % (Auto) [place] # Baso # Seg Neutrophils % Seg Neuts % (Manual) Lymphocytes % (Manual) Monocytes % (Manual) Seg Neutrophils # Seg Neutrophils # Man Lymphocytes # (Manual) Monocytes # (Manual) Eosinophils # (Manual) Basophils # (Manual) PT INR APTT ABG pH ABG pO2 68.3 L ABG HCO3 33.5 H ABG O2 Saturation 93.5 L ABG Base Excess 8.4 H ABG Hemoglobin 7.3 L Oxyhemoglobin 90.9 L Sodium Potassium Chloride Carbon Dioxide BUN Creatinine Glucose POC Glucose 107 H Lactic Acid Calcium Ionized Calcium Phosphorus Magnesium Total Bilirubin AST ALT Alkaline Phosphatase Ammonia Total Creatine Kinase CK-MB (CK-2) CK-MB (CK-2) Rel Index Total Protein Albumin Urine WBC (Auto) Vancomycin Trough Salicylates Acetaminophen Plasma/Serum Alcohol Crossmatch 12/04/19 12/04/19 12/04/19 04:26 07:45 12:02 WBC 15.9 H RBC 2.88 L Hgb 7.9 L Hct 25.1 L MCH RDW 20.4 H Plt Count 839 H Lymph % (Auto) 11.3 L [place] % (Auto) 15.2 H [place] # 2.4 H Baso # Seg Neutrophils % 72.4 H Seg Neuts % (Manual) Lymphocytes % (Manual) Monocytes % (Manual) Seg Neutrophils # 11.5 H Seg Neutrophils # Man Lymphocytes # (Manual) Monocytes # (Manual) Eosinophils # (Manual) Basophils # (Manual) PT INR APTT ABG pH ABG pO2 ABG HCO3 ABG O2 Saturation ABG Base Excess ABG Hemoglobin Oxyhemoglobin Sodium Potassium Chloride 96.5 L Carbon Dioxide BUN 21 H Creatinine 0.6 L Glucose 107 H POC Glucose 138 H Lactic Acid Calcium Ionized Calcium Phosphorus Magnesium Total Bilirubin AST ALT Alkaline Phosphatase Ammonia Total Creatine Kinase CK-MB (CK-2) CK-MB (CK-2) Rel Index Total Protein Albumin Urine WBC (Auto) Vancomycin Trough Salicylates Acetaminophen Plasma/Serum Alcohol Crossmatch 12/04/19 12/05/19 12/05/19 18:16 11:55 18:36 WBC RBC Hgb Hct MCH RDW Plt Count Lymph % (Auto) [place] % (Auto) [place] # Baso # Seg Neutrophils % Seg Neuts % (Manual) Lymphocytes % (Manual) Monocytes % (Manual) Seg Neutrophils # Seg Neutrophils # Man Lymphocytes # (Manual) Monocytes # (Manual) Eosinophils # (Manual) Basophils # (Manual) PT INR APTT ABG pH ABG pO2 ABG HCO3 ABG O2 Saturation ABG Base Excess ABG Hemoglobin Oxyhemoglobin Sodium Potassium Chloride Carbon Dioxide BUN Creatinine Glucose POC Glucose 135 H 125 H 135 H Lactic Acid Calcium Ionized Calcium Phosphorus Magnesium Total Bilirubin AST ALT Alkaline Phosphatase Ammonia Total Creatine Kinase CK-MB (CK-2) CK-MB (CK-2) Rel Index Total Protein Albumin Urine WBC (Auto) Vancomycin Trough Salicylates Acetaminophen Plasma/Serum Alcohol Crossmatch 12/05/19 12/06/19 12/06/19 23:30 04:14 05:43 WBC RBC Hgb Hct MCH RDW Plt Count Lymph % (Auto) [place] % (Auto) [place] # Baso # Seg Neutrophils % Seg Neuts % (Manual) Lymphocytes % (Manual) Monocytes % (Manual) Seg Neutrophils # Seg Neutrophils # Man Lymphocytes # (Manual) Monocytes # (Manual) Eosinophils # (Manual) Basophils # (Manual) PT INR APTT ABG pH ABG pO2 ABG HCO3 ABG O2 Saturation ABG Base Excess ABG Hemoglobin Oxyhemoglobin Sodium Potassium 5.6 H Chloride 95.0 L Carbon Dioxide BUN 48 H Creatinine 1.3 H D Glucose POC Glucose 126 H 121 H Lactic Acid Calcium Ionized Calcium Phosphorus Magnesium Total Bilirubin AST 89 H ALT 98 H Alkaline Phosphatase 476 H Ammonia Total Creatine Kinase CK-MB (CK-2) CK-MB (CK-2) Rel Index Total Protein Albumin 2.8 L Urine WBC (Auto) Vancomycin Trough Salicylates Acetaminophen Plasma/Serum Alcohol Crossmatch 12/06/19 12/06/19 12/07/19 10:39 14:34 00:19 WBC 17.3 H RBC 2.60 L Hgb 7.1 L Hct 22.7 L MCH 27 L RDW 20.1 H Plt Count 832 H Lymph % (Auto) [place] % (Auto) [place] # Baso # Seg Neutrophils % Seg Neuts % (Manual) Lymphocytes % (Manual) Monocytes % (Manual) Seg Neutrophils # Seg Neutrophils # Man Lymphocytes # (Manual) Monocytes # (Manual) Eosinophils # (Manual) Basophils # (Manual) PT INR APTT ABG pH ABG pO2 ABG HCO3 ABG O2 Saturation ABG Base Excess ABG Hemoglobin Oxyhemoglobin Sodium Potassium Chloride Carbon Dioxide BUN Creatinine Glucose POC Glucose 128 H 136 H Lactic Acid Calcium Ionized Calcium Phosphorus Magnesium Total Bilirubin AST ALT Alkaline Phosphatase Ammonia Total Creatine Kinase CK-MB (CK-2) CK-MB (CK-2) Rel Index Total Protein Albumin Urine WBC (Auto) Vancomycin Trough Salicylates Acetaminophen Plasma/Serum Alcohol Crossmatch 12/07/19 12/07/19 12/07/19 03:44 03:44 05:53 WBC 16.2 H RBC 2.56 L Hgb 7.1 L Hct 22.3 L MCH RDW 19.4 H Plt Count 782 H Lymph % (Auto) [place] % (Auto) [place] # Baso # Seg Neutrophils % Seg Neuts % (Manual) Lymphocytes % (Manual) Monocytes % (Manual) Seg Neutrophils # Seg Neutrophils # Man Lymphocytes # (Manual) Monocytes # (Manual) Eosinophils # (Manual) Basophils # (Manual) PT INR APTT ABG pH ABG pO2 ABG HCO3 ABG O2 Saturation ABG Base Excess ABG Hemoglobin Oxyhemoglobin Sodium Potassium Chloride 95.6 L Carbon Dioxide BUN 56 H Creatinine 1.4 H Glucose 120 H POC Glucose 128 H Lactic Acid Calcium 10.3 H Ionized Calcium Phosphorus Magnesium Total Bilirubin AST ALT Alkaline Phosphatase Ammonia Total Creatine Kinase CK-MB (CK-2) CK-MB (CK-2) Rel Index Total Protein Albumin Urine WBC (Auto) Vancomycin Trough Salicylates Acetaminophen Plasma/Serum Alcohol Crossmatch 12/07/19 12/07/19 12/08/19 12:54 23:47 00:20 WBC RBC Hgb Hct MCH RDW Plt Count Lymph % (Auto) [place] % (Auto) [place] # Baso # Seg Neutrophils % Seg Neuts % (Manual) Lymphocytes % (Manual) Monocytes % (Manual) Seg Neutrophils # Seg Neutrophils # Man Lymphocytes # (Manual) Monocytes # (Manual) Eosinophils # (Manual) Basophils # (Manual) PT INR APTT ABG pH ABG pO2 ABG HCO3 ABG O2 Saturation ABG Base Excess ABG Hemoglobin Oxyhemoglobin Sodium Potassium Chloride Carbon Dioxide BUN Creatinine Glucose POC Glucose 128 H 130 H 124 H Lactic Acid Calcium Ionized Calcium Phosphorus Magnesium Total Bilirubin AST ALT Alkaline Phosphatase Ammonia Total Creatine Kinase CK-MB (CK-2) CK-MB (CK-2) Rel Index Total Protein Albumin Urine WBC (Auto) Vancomycin Trough Salicylates Acetaminophen Plasma/Serum Alcohol Crossmatch 12/08/19 12/08/19 12/08/19 06:38 12:04 18:26 WBC RBC Hgb Hct MCH RDW Plt Count Lymph % (Auto) [place] % (Auto) [place] # Baso # Seg Neutrophils % Seg Neuts % (Manual) Lymphocytes % (Manual) Monocytes % (Manual) Seg Neutrophils # Seg Neutrophils # Man Lymphocytes # (Manual) Monocytes # (Manual) Eosinophils # (Manual) Basophils # (Manual) PT INR APTT ABG pH ABG pO2 ABG HCO3 ABG O2 Saturation ABG Base Excess ABG Hemoglobin Oxyhemoglobin Sodium Potassium Chloride Carbon Dioxide BUN Creatinine Glucose POC Glucose 137 H 129 H 150 H Lactic Acid Calcium Ionized Calcium Phosphorus Magnesium Total Bilirubin AST ALT Alkaline Phosphatase Ammonia Total Creatine Kinase CK-MB (CK-2) CK-MB (CK-2) Rel Index Total Protein Albumin Urine WBC (Auto) Vancomycin Trough Salicylates Acetaminophen Plasma/Serum Alcohol Crossmatch 12/09/19 12/09/19 12/09/19 00:56 05:34 06:13 WBC RBC Hgb Hct MCH RDW Plt Count Lymph % (Auto) [place] % (Auto) [place] # Baso # Seg Neutrophils % Seg Neuts % (Manual) Lymphocytes % (Manual) Monocytes % (Manual) Seg Neutrophils # Seg Neutrophils # Man Lymphocytes # (Manual) Monocytes # (Manual) Eosinophils # (Manual) Basophils # (Manual) PT INR APTT ABG pH ABG pO2 ABG HCO3 ABG O2 Saturation ABG Base Excess ABG Hemoglobin Oxyhemoglobin Sodium 146 H Potassium Chloride Carbon Dioxide BUN 66 H Creatinine 1.9 H Glucose 116 H POC Glucose 130 H 130 H Lactic Acid Calcium Ionized Calcium Phosphorus Magnesium Total Bilirubin AST ALT Alkaline Phosphatase Ammonia Total Creatine Kinase CK-MB (CK-2) CK-MB (CK-2) Rel Index Total Protein Albumin Urine WBC (Auto) Vancomycin Trough Salicylates Acetaminophen Plasma/Serum Alcohol Crossmatch 12/09/19 12/09/19 12/10/19 11:52 17:50 00:14 WBC RBC Hgb Hct MCH RDW Plt Count Lymph % (Auto) [place] % (Auto) [place] # Baso # Seg Neutrophils % Seg Neuts % (Manual) Lymphocytes % (Manual) Monocytes % (Manual) Seg Neutrophils # Seg Neutrophils # Man Lymphocytes # (Manual) Monocytes # (Manual) Eosinophils # (Manual) Basophils # (Manual) PT INR APTT ABG pH ABG pO2 ABG HCO3 ABG O2 Saturation ABG Base Excess ABG Hemoglobin Oxyhemoglobin Sodium Potassium Chloride Carbon Dioxide BUN Creatinine Glucose POC Glucose 135 H 120 H 116 H Lactic Acid Calcium Ionized Calcium Phosphorus Magnesium Total Bilirubin AST ALT Alkaline Phosphatase Ammonia Total Creatine Kinase CK-MB (CK-2) CK-MB (CK-2) Rel Index Total Protein Albumin Urine WBC (Auto) Vancomycin Trough Salicylates Acetaminophen Plasma/Serum Alcohol Crossmatch 12/10/19 12/10/19 12/10/19 05:38 11:38 17:34 WBC RBC Hgb Hct MCH RDW Plt Count Lymph % (Auto) [place] % (Auto) [place] # Baso # Seg Neutrophils % Seg Neuts % (Manual) Lymphocytes % (Manual) Monocytes % (Manual) Seg Neutrophils # Seg Neutrophils # Man Lymphocytes # (Manual) Monocytes # (Manual) Eosinophils # (Manual) Basophils # (Manual) PT INR APTT ABG pH ABG pO2 ABG HCO3 ABG O2 Saturation ABG Base Excess ABG Hemoglobin Oxyhemoglobin Sodium Potassium Chloride Carbon Dioxide BUN Creatinine Glucose POC Glucose 115 H 112 H 130 H Lactic Acid Calcium Ionized Calcium Phosphorus Magnesium Total Bilirubin AST ALT Alkaline Phosphatase Ammonia Total Creatine Kinase CK-MB (CK-2) CK-MB (CK-2) Rel Index Total Protein Albumin Urine WBC (Auto) Vancomycin Trough Salicylates Acetaminophen Plasma/Serum Alcohol Crossmatch 12/11/19 12/11/19 12/11/19 00:20 05:31 12:22 WBC RBC Hgb Hct MCH RDW Plt Count Lymph % (Auto) [place] % (Auto) [place] # Baso # Seg Neutrophils % Seg Neuts % (Manual) Lymphocytes % (Manual) Monocytes % (Manual) Seg Neutrophils # Seg Neutrophils # Man Lymphocytes # (Manual) Monocytes # (Manual) Eosinophils # (Manual) Basophils # (Manual) PT INR APTT ABG pH ABG pO2 ABG HCO3 ABG O2 Saturation ABG Base Excess ABG Hemoglobin Oxyhemoglobin Sodium Potassium Chloride Carbon Dioxide BUN Creatinine Glucose POC Glucose 124 H 132 H 128 H Lactic Acid Calcium Ionized Calcium Phosphorus Magnesium Total Bilirubin AST ALT Alkaline Phosphatase Ammonia Total Creatine Kinase CK-MB (CK-2) CK-MB (CK-2) Rel Index Total Protein Albumin Urine WBC (Auto) Vancomycin Trough Salicylates Acetaminophen Plasma/Serum Alcohol Crossmatch 12/11/19 12/11/19 12/12/19 18:04 23:42 03:51 WBC RBC Hgb Hct MCH RDW Plt Count Lymph % (Auto) [place] % (Auto) [place] # Baso # Seg Neutrophils % Seg Neuts % (Manual) Lymphocytes % (Manual) Monocytes % (Manual) Seg Neutrophils # Seg Neutrophils # Man Lymphocytes # (Manual) Monocytes # (Manual) Eosinophils # (Manual) Basophils # (Manual) PT INR APTT ABG pH ABG pO2 ABG HCO3 ABG O2 Saturation ABG Base Excess ABG Hemoglobin Oxyhemoglobin Sodium 149 H Potassium Chloride Carbon Dioxide 20 L D BUN 77 H Creatinine 2.8 H Glucose POC Glucose 133 H 154 H Lactic Acid Calcium Ionized Calcium Phosphorus Magnesium Total Bilirubin AST ALT Alkaline Phosphatase Ammonia Total Creatine Kinase CK-MB (CK-2) CK-MB (CK-2) Rel Index Total Protein Albumin Urine WBC (Auto) Vancomycin Trough Salicylates Acetaminophen Plasma/Serum Alcohol Crossmatch 12/12/19 12/12/19 12/12/19 05:18 05:26 10:30 WBC 18.0 H RBC 2.51 L Hgb 6.8 L Hct 22.0 L MCH 27 L RDW 19.9 H Plt Count 582 H Lymph % (Auto) [place] % (Auto) [place] # Baso # Seg Neutrophils % Seg Neuts % (Manual) Lymphocytes % (Manual) Monocytes % (Manual) Seg Neutrophils # Seg Neutrophils # Man Lymphocytes # (Manual) Monocytes # (Manual) Eosinophils # (Manual) Basophils # (Manual) PT INR APTT ABG pH ABG pO2 ABG HCO3 ABG O2 Saturation ABG Base Excess ABG Hemoglobin Oxyhemoglobin Sodium Potassium Chloride Carbon Dioxide BUN Creatinine Glucose POC Glucose 135 H Lactic Acid Calcium Ionized Calcium Phosphorus Magnesium Total Bilirubin AST ALT Alkaline Phosphatase Ammonia Total Creatine Kinase CK-MB (CK-2) CK-MB (CK-2) Rel Index Total Protein Albumin Urine WBC (Auto) Vancomycin Trough Salicylates Acetaminophen Plasma/Serum Alcohol Crossmatch See Detail 12/12/19 12/12/19 12/12/19 11:44 18:10 23:21 WBC RBC Hgb Hct MCH RDW Plt Count Lymph % (Auto) [place] % (Auto) [place] # Baso # Seg Neutrophils % Seg Neuts % (Manual) Lymphocytes % (Manual) Monocytes % (Manual) Seg Neutrophils # Seg Neutrophils # Man Lymphocytes # (Manual) Monocytes # (Manual) Eosinophils # (Manual) Basophils # (Manual) PT INR APTT ABG pH ABG pO2 ABG HCO3 ABG O2 Saturation ABG Base Excess ABG Hemoglobin Oxyhemoglobin Sodium Potassium Chloride Carbon Dioxide BUN Creatinine Glucose POC Glucose 108 H 107 H 126 H Lactic Acid Calcium Ionized Calcium Phosphorus Magnesium Total Bilirubin AST ALT Alkaline Phosphatase Ammonia Total Creatine Kinase CK-MB (CK-2) CK-MB (CK-2) Rel Index Total Protein Albumin Urine WBC (Auto) Vancomycin Trough Salicylates Acetaminophen Plasma/Serum Alcohol Crossmatch 12/13/19 12/13/19 12/13/19 05:41 07:48 07:48 WBC 38.3 H RBC 2.37 L Hgb 6.3 L Hct 20.9 L MCH 27 L RDW 20.2 H Plt Count 546 H Lymph % (Auto) [place] % (Auto) [place] # Baso # Seg Neutrophils % Seg Neuts % (Manual) 93.0 H Lymphocytes % (Manual) 1.0 L Monocytes % (Manual) Seg Neutrophils # Seg Neutrophils # Man 35.6 H Lymphocytes # (Manual) 0.4 L Monocytes # (Manual) Eosinophils # (Manual) Basophils # (Manual) 0.4 H PT INR APTT ABG pH ABG pO2 ABG HCO3 ABG O2 Saturation ABG Base Excess ABG Hemoglobin Oxyhemoglobin Sodium 152 H Potassium 3.1 L D Chloride 111.9 H Carbon Dioxide 21 L BUN 53 H Creatinine 1.9 H Glucose 141 H POC Glucose 128 H Lactic Acid Calcium Ionized Calcium Phosphorus Magnesium Total Bilirubin AST ALT Alkaline Phosphatase 316 H Ammonia Total Creatine Kinase CK-MB (CK-2) CK-MB (CK-2) Rel Index Total Protein Albumin 2.4 L Urine WBC (Auto) Vancomycin Trough Salicylates Acetaminophen Plasma/Serum Alcohol Crossmatch 12/13/19 12/13/19 12/14/19 18:17 23:19 05:36 WBC RBC Hgb Hct MCH RDW Plt Count Lymph % (Auto) [place] % (Auto) [place] # Baso # Seg Neutrophils % Seg Neuts % (Manual) Lymphocytes % (Manual) Monocytes % (Manual) Seg Neutrophils # Seg Neutrophils # Man Lymphocytes # (Manual) Monocytes # (Manual) Eosinophils # (Manual) Basophils # (Manual) PT INR APTT ABG pH ABG pO2 ABG HCO3 ABG O2 Saturation ABG Base Excess ABG Hemoglobin Oxyhemoglobin Sodium Potassium Chloride Carbon Dioxide BUN Creatinine Glucose POC Glucose 141 H 158 H 182 H Lactic Acid Calcium Ionized Calcium Phosphorus Magnesium Total Bilirubin AST ALT Alkaline Phosphatase Ammonia Total Creatine Kinase CK-MB (CK-2) CK-MB (CK-2) Rel Index Total Protein Albumin Urine WBC (Auto) Vancomycin Trough Salicylates Acetaminophen Plasma/Serum Alcohol Crossmatch 12/14/19 12/14/19 12/14/19 08:48 08:48 10:31 WBC 33.3 H RBC 2.70 L Hgb 7.9 L 8.0 L Hct 25.3 L 24.0 L MCH RDW 19.2 H Plt Count 476 H Lymph % (Auto) [place] % (Auto) [place] # Baso # Seg Neutrophils % Seg Neuts % (Manual) Lymphocytes % (Manual) Monocytes % (Manual) Seg Neutrophils # Seg Neutrophils # Man Lymphocytes # (Manual) Monocytes # (Manual) Eosinophils # (Manual) Basophils # (Manual) PT INR APTT ABG pH ABG pO2 ABG HCO3 ABG O2 Saturation ABG Base Excess ABG Hemoglobin Oxyhemoglobin Sodium 153 H Potassium 2.5 L* Chloride 114.9 H Carbon Dioxide 20 L BUN 38 H Creatinine 1.4 H Glucose 177 H POC Glucose Lactic Acid Calcium Ionized Calcium Phosphorus Magnesium Total Bilirubin AST ALT Alkaline Phosphatase Ammonia Total Creatine Kinase CK-MB (CK-2) CK-MB (CK-2) Rel Index Total Protein Albumin Urine WBC (Auto) Vancomycin Trough Salicylates Acetaminophen Plasma/Serum Alcohol Crossmatch 12/14/19 12/14/19 12/14/19 12:57 16:15 17:50 WBC RBC Hgb Hct MCH RDW Plt Count Lymph % (Auto) [place] % (Auto) [place] # Baso # Seg Neutrophils % Seg Neuts % (Manual) Lymphocytes % (Manual) Monocytes % (Manual) Seg Neutrophils # Seg Neutrophils # Man Lymphocytes # (Manual) Monocytes # (Manual) Eosinophils # (Manual) Basophils # (Manual) PT INR APTT ABG pH ABG pO2 73.6 L ABG HCO3 ABG O2 Saturation ABG Base Excess ABG Hemoglobin 7.6 L Oxyhemoglobin 94.0 L Sodium Potassium Chloride Carbon Dioxide BUN Creatinine Glucose POC Glucose 174 H 150 H Lactic Acid Calcium Ionized Calcium Phosphorus Magnesium Total Bilirubin AST ALT Alkaline Phosphatase Ammonia Total Creatine Kinase CK-MB (CK-2) CK-MB (CK-2) Rel Index Total Protein Albumin Urine WBC (Auto) Vancomycin Trough Salicylates Acetaminophen Plasma/Serum Alcohol Crossmatch 12/15/19 12/15/19 12/15/19 00:28 05:27 07:23 WBC 30.0 H RBC 3.11 L Hgb 8.6 L Hct 27.7 L MCH RDW 20.0 H Plt Count 473 H Lymph % (Auto) [place] % (Auto) [place] # Baso # Seg Neutrophils % Seg Neuts % (Manual) Lymphocytes % (Manual) Monocytes % (Manual) Seg Neutrophils # Seg Neutrophils # Man Lymphocytes # (Manual) Monocytes # (Manual) Eosinophils # (Manual) Basophils # (Manual) PT INR APTT ABG pH ABG pO2 ABG HCO3 ABG O2 Saturation ABG Base Excess ABG Hemoglobin Oxyhemoglobin Sodium Potassium Chloride Carbon Dioxide BUN Creatinine Glucose POC Glucose 167 H 148 H Lactic Acid Calcium Ionized Calcium Phosphorus Magnesium Total Bilirubin AST ALT Alkaline Phosphatase Ammonia Total Creatine Kinase CK-MB (CK-2) CK-MB (CK-2) Rel Index Total Protein Albumin Urine WBC (Auto) Vancomycin Trough Salicylates Acetaminophen Plasma/Serum Alcohol Crossmatch 12/15/19 12/15/19 12/15/19 07:23 12:21 17:41 WBC RBC Hgb Hct MCH RDW Plt Count Lymph % (Auto) [place] % (Auto) [place] # Baso # Seg Neutrophils % Seg Neuts % (Manual) Lymphocytes % (Manual) Monocytes % (Manual) Seg Neutrophils # Seg Neutrophils # Man Lymphocytes # (Manual) Monocytes # (Manual) Eosinophils # (Manual) Basophils # (Manual) PT INR APTT ABG pH ABG pO2 ABG HCO3 ABG O2 Saturation ABG Base Excess ABG Hemoglobin Oxyhemoglobin Sodium 147 H Potassium 3.5 L D Chloride 111.2 H Carbon Dioxide 19 L BUN 29 H Creatinine Glucose 126 H POC Glucose 154 H 144 H Lactic Acid Calcium Ionized Calcium Phosphorus Magnesium Total Bilirubin AST ALT Alkaline Phosphatase Ammonia Total Creatine Kinase CK-MB (CK-2) CK-MB (CK-2) Rel Index Total Protein Albumin Urine WBC (Auto) Vancomycin Trough Salicylates Acetaminophen Plasma/Serum Alcohol Crossmatch 12/16/19 12/16/19 12/16/19 00:22 05:30 05:44 WBC 30.8 H RBC 2.58 L Hgb 7.1 L Hct 22.7 L MCH RDW 19.6 H Plt Count 451 H Lymph % (Auto) [place] % (Auto) [place] # Baso # Seg Neutrophils % Seg Neuts % (Manual) Lymphocytes % (Manual) Monocytes % (Manual) Seg Neutrophils # Seg Neutrophils # Man Lymphocytes # (Manual) Monocytes # (Manual) Eosinophils # (Manual) Basophils # (Manual) PT INR APTT ABG pH ABG pO2 ABG HCO3 ABG O2 Saturation ABG Base Excess ABG Hemoglobin Oxyhemoglobin Sodium Potassium Chloride Carbon Dioxide BUN Creatinine Glucose POC Glucose 139 H 126 H Lactic Acid Calcium Ionized Calcium Phosphorus Magnesium Total Bilirubin AST ALT Alkaline Phosphatase Ammonia Total Creatine Kinase CK-MB (CK-2) CK-MB (CK-2) Rel Index Total Protein Albumin Urine WBC (Auto) Vancomycin Trough Salicylates Acetaminophen Plasma/Serum Alcohol Crossmatch 12/16/19 12/16/19 12/16/19 05:44 11:48 17:37 WBC RBC Hgb Hct MCH RDW Plt Count Lymph % (Auto) [place] % (Auto) [place] # Baso # Seg Neutrophils % Seg Neuts % (Manual) Lymphocytes % (Manual) Monocytes % (Manual) Seg Neutrophils # Seg Neutrophils # Man Lymphocytes # (Manual) Monocytes # (Manual) Eosinophils # (Manual) Basophils # (Manual) PT INR APTT ABG pH ABG pO2 ABG HCO3 ABG O2 Saturation ABG Base Excess ABG Hemoglobin Oxyhemoglobin Sodium Potassium 3.4 L Chloride 109.2 H Carbon Dioxide 19 L BUN 27 H Creatinine Glucose 124 H POC Glucose 125 H 148 H Lactic Acid Calcium Ionized Calcium Phosphorus Magnesium Total Bilirubin AST ALT Alkaline Phosphatase Ammonia Total Creatine Kinase CK-MB (CK-2) CK-MB (CK-2) Rel Index Total Protein Albumin Urine WBC (Auto) Vancomycin Trough Salicylates Acetaminophen Plasma/Serum Alcohol Crossmatch 12/16/19 12/17/19 12/17/19 23:43 05:28 12:47 WBC RBC Hgb Hct MCH RDW Plt Count Lymph % (Auto) [place] % (Auto) [place] # Baso # Seg Neutrophils % Seg Neuts % (Manual) Lymphocytes % (Manual) Monocytes % (Manual) Seg Neutrophils # Seg Neutrophils # Man Lymphocytes # (Manual) Monocytes # (Manual) Eosinophils # (Manual) Basophils # (Manual) PT INR APTT ABG pH ABG pO2 ABG HCO3 ABG O2 Saturation ABG Base Excess ABG Hemoglobin Oxyhemoglobin Sodium Potassium Chloride Carbon Dioxide BUN Creatinine Glucose POC Glucose 142 H 140 H 125 H Lactic Acid Calcium Ionized Calcium Phosphorus Magnesium Total Bilirubin AST ALT Alkaline Phosphatase Ammonia Total Creatine Kinase CK-MB (CK-2) CK-MB (CK-2) Rel Index Total Protein Albumin Urine WBC (Auto) Vancomycin Trough Salicylates Acetaminophen Plasma/Serum Alcohol Crossmatch 12/17/19 12/17/19 12/17/19 17:05 18:00 Unknown WBC RBC Hgb Hct MCH RDW Plt Count Lymph % (Auto) [place] % (Auto) [place] # Baso # Seg Neutrophils % Seg Neuts % (Manual) Lymphocytes % (Manual) Monocytes % (Manual) Seg Neutrophils # Seg Neutrophils # Man Lymphocytes # (Manual) Monocytes # (Manual) Eosinophils # (Manual) Basophils # (Manual) PT INR APTT ABG pH ABG pO2 68.1 L ABG HCO3 ABG O2 Saturation 93.7 L ABG Base Excess ABG Hemoglobin 5.0 L Oxyhemoglobin 91.7 L Sodium Potassium Chloride Carbon Dioxide BUN Creatinine Glucose POC Glucose 140 H Lactic Acid Calcium Ionized Calcium Phosphorus Magnesium Total Bilirubin AST ALT Alkaline Phosphatase Ammonia Total Creatine Kinase CK-MB (CK-2) CK-MB (CK-2) Rel Index Total Protein Albumin Urine WBC (Auto) Vancomycin Trough Salicylates Acetaminophen Plasma/Serum Alcohol Crossmatch 12/18/19 12/18/19 12/18/19 00:16 04:53 04:53 WBC 28.6 H RBC 2.27 L Hgb 6.3 L Hct 19.5 L* MCH RDW 20.0 H Plt Count 497 H Lymph % (Auto) [place] % (Auto) [place] # Baso # Seg Neutrophils % Seg Neuts % (Manual) Lymphocytes % (Manual) Monocytes % (Manual) Seg Neutrophils # Seg Neutrophils # Man Lymphocytes # (Manual) Monocytes # (Manual) Eosinophils # (Manual) Basophils # (Manual) PT INR APTT ABG pH ABG pO2 ABG HCO3 ABG O2 Saturation ABG Base Excess ABG Hemoglobin Oxyhemoglobin Sodium Potassium Chloride 107.9 H Carbon Dioxide 20 L BUN 27 H Creatinine 0.6 L Glucose 116 H POC Glucose 123 H Lactic Acid Calcium Ionized Calcium Phosphorus Magnesium Total Bilirubin AST ALT Alkaline Phosphatase Ammonia Total Creatine Kinase CK-MB (CK-2) CK-MB (CK-2) Rel Index Total Protein Albumin Urine WBC (Auto) Vancomycin Trough Salicylates Acetaminophen Plasma/Serum Alcohol Crossmatch 12/18/19 12/18/19 12/18/19 06:38 11:22 12:08 WBC RBC Hgb Hct MCH RDW Plt Count Lymph % (Auto) [place] % (Auto) [place] # Baso # Seg Neutrophils % Seg Neuts % (Manual) Lymphocytes % (Manual) Monocytes % (Manual) Seg Neutrophils # Seg Neutrophils # Man Lymphocytes # (Manual) Monocytes # (Manual) Eosinophils # (Manual) Basophils # (Manual) PT INR APTT ABG pH ABG pO2 ABG HCO3 ABG O2 Saturation ABG Base Excess ABG Hemoglobin Oxyhemoglobin Sodium Potassium Chloride Carbon Dioxide BUN Creatinine Glucose POC Glucose 120 H 127 H Lactic Acid Calcium Ionized Calcium Phosphorus Magnesium Total Bilirubin AST ALT Alkaline Phosphatase Ammonia Total Creatine Kinase CK-MB (CK-2) CK-MB (CK-2) Rel Index Total Protein Albumin Urine WBC (Auto) Vancomycin Trough Salicylates Acetaminophen Plasma/Serum Alcohol Crossmatch See Detail 12/18/19 12/18/19 12/18/19 14:05 17:49 23:53 WBC RBC Hgb Hct MCH RDW Plt Count Lymph % (Auto) [place] % (Auto) [place] # Baso # Seg Neutrophils % Seg Neuts % (Manual) Lymphocytes % (Manual) Monocytes % (Manual) Seg Neutrophils # Seg Neutrophils # Man Lymphocytes # (Manual) Monocytes # (Manual) Eosinophils # (Manual) Basophils # (Manual) PT INR APTT ABG pH 7.267 L ABG pO2 69.8 L ABG HCO3 ABG O2 Saturation 88.4 L ABG Base Excess ABG Hemoglobin 7.1 L Oxyhemoglobin 86.4 L Sodium Potassium Chloride Carbon Dioxide BUN Creatinine Glucose POC Glucose 157 H 128 H Lactic Acid Calcium Ionized Calcium Phosphorus Magnesium Total Bilirubin AST ALT Alkaline Phosphatase Ammonia Total Creatine Kinase CK-MB (CK-2) CK-MB (CK-2) Rel Index Total Protein Albumin Urine WBC (Auto) Vancomycin Trough Salicylates Acetaminophen Plasma/Serum Alcohol Crossmatch 12/19/19 12/19/19 12/19/19 03:37 03:37 05:25 WBC 31.3 H RBC 2.60 L Hgb 7.6 L Hct 23.0 L MCH RDW 19.4 H Plt Count 530 H Lymph % (Auto) [place] % (Auto) [place] # Baso # Seg Neutrophils % Seg Neuts % (Manual) Lymphocytes % (Manual) Monocytes % (Manual) Seg Neutrophils # Seg Neutrophils # Man Lymphocytes # (Manual) Monocytes # (Manual) Eosinophils # (Manual) Basophils # (Manual) PT INR APTT ABG pH ABG pO2 ABG HCO3 ABG O2 Saturation ABG Base Excess ABG Hemoglobin Oxyhemoglobin Sodium Potassium Chloride Carbon Dioxide 18 L BUN 36 H Creatinine Glucose 111 H POC Glucose 123 H Lactic Acid Calcium Ionized Calcium Phosphorus Magnesium Total Bilirubin AST ALT Alkaline Phosphatase Ammonia Total Creatine Kinase CK-MB (CK-2) CK-MB (CK-2) Rel Index Total Protein Albumin Urine WBC (Auto) Vancomycin Trough Salicylates Acetaminophen Plasma/Serum Alcohol Crossmatch 12/19/19 12/19/19 12/20/19 12:59 18:33 00:00 WBC RBC Hgb Hct MCH RDW Plt Count Lymph % (Auto) [place] % (Auto) [place] # Baso # Seg Neutrophils % Seg Neuts % (Manual) Lymphocytes % (Manual) Monocytes % (Manual) Seg Neutrophils # Seg Neutrophils # Man Lymphocytes # (Manual) Monocytes # (Manual) Eosinophils # (Manual) Basophils # (Manual) PT INR APTT ABG pH ABG pO2 ABG HCO3 ABG O2 Saturation ABG Base Excess ABG Hemoglobin Oxyhemoglobin Sodium Potassium Chloride Carbon Dioxide BUN Creatinine Glucose POC Glucose 130 H 118 H 135 H Lactic Acid Calcium Ionized Calcium Phosphorus Magnesium Total Bilirubin AST ALT Alkaline Phosphatase Ammonia Total Creatine Kinase CK-MB (CK-2) CK-MB (CK-2) Rel Index Total Protein Albumin Urine WBC (Auto) Vancomycin Trough Salicylates Acetaminophen Plasma/Serum Alcohol Crossmatch 12/20/19 12/20/19 12/20/19 05:46 12:31 18:07 WBC RBC Hgb Hct MCH RDW Plt Count Lymph % (Auto) [place] % (Auto) [place] # Baso # Seg Neutrophils % Seg Neuts % (Manual) Lymphocytes % (Manual) Monocytes % (Manual) Seg Neutrophils # Seg Neutrophils # Man Lymphocytes # (Manual) Monocytes # (Manual) Eosinophils # (Manual) Basophils # (Manual) PT INR APTT ABG pH ABG pO2 ABG HCO3 ABG O2 Saturation ABG Base Excess ABG Hemoglobin Oxyhemoglobin Sodium Potassium Chloride Carbon Dioxide BUN Creatinine Glucose POC Glucose 131 H 128 H 134 H Lactic Acid Calcium Ionized Calcium Phosphorus Magnesium Total Bilirubin AST ALT Alkaline Phosphatase Ammonia Total Creatine Kinase CK-MB (CK-2) CK-MB (CK-2) Rel Index Total Protein Albumin Urine WBC (Auto) Vancomycin Trough Salicylates Acetaminophen Plasma/Serum Alcohol Crossmatch 12/21/19 12/21/19 12/21/19 03:28 03:28 07:21 WBC 29.4 H RBC 2.30 L Hgb 6.8 L Hct 20.2 L MCH RDW 20.2 H Plt Count 746 H Lymph % (Auto) [place] % (Auto) [place] # Baso # Seg Neutrophils % Seg Neuts % (Manual) 85.0 H Lymphocytes % (Manual) 8.0 L Monocytes % (Manual) Seg Neutrophils # Seg Neutrophils # Man 25.0 H Lymphocytes # (Manual) Monocytes # (Manual) 1.5 H Eosinophils # (Manual) 0.6 H Basophils # (Manual) PT INR APTT ABG pH ABG pO2 ABG HCO3 ABG O2 Saturation ABG Base Excess ABG Hemoglobin Oxyhemoglobin Sodium Potassium Chloride Carbon Dioxide 17 L BUN 57 H Creatinine 1.4 H D Glucose POC Glucose 124 H Lactic Acid Calcium Ionized Calcium Phosphorus Magnesium Total Bilirubin AST ALT Alkaline Phosphatase Ammonia Total Creatine Kinase CK-MB (CK-2) CK-MB (CK-2) Rel Index Total Protein Albumin Urine WBC (Auto) Vancomycin Trough Salicylates Acetaminophen Plasma/Serum Alcohol Crossmatch 12/21/19 12/21/19 12/21/19 08:56 12:06 14:53 WBC RBC Hgb 7.2 L Hct 22.9 L MCH RDW Plt Count Lymph % (Auto) [place] % (Auto) [place] # Baso # Seg Neutrophils % Seg Neuts % (Manual) Lymphocytes % (Manual) Monocytes % (Manual) Seg Neutrophils # Seg Neutrophils # Man Lymphocytes # (Manual) Monocytes # (Manual) Eosinophils # (Manual) Basophils # (Manual) PT INR APTT ABG pH ABG pO2 ABG HCO3 ABG O2 Saturation ABG Base Excess ABG Hemoglobin Oxyhemoglobin Sodium Potassium Chloride Carbon Dioxide BUN Creatinine Glucose POC Glucose 116 H Lactic Acid Calcium Ionized Calcium Phosphorus Magnesium Total Bilirubin AST ALT Alkaline Phosphatase Ammonia Total Creatine Kinase CK-MB (CK-2) CK-MB (CK-2) Rel Index Total Protein Albumin Urine WBC (Auto) Vancomycin Trough 33.8 H Salicylates Acetaminophen Plasma/Serum Alcohol Crossmatch 12/21/19 12/21/19 12/21/19 14:54 17:27 23:49 WBC RBC Hgb Hct MCH RDW Plt Count Lymph % (Auto) [place] % (Auto) [place] # Baso # Seg Neutrophils % Seg Neuts % (Manual) Lymphocytes % (Manual) Monocytes % (Manual) Seg Neutrophils # Seg Neutrophils # Man Lymphocytes # (Manual) Monocytes # (Manual) Eosinophils # (Manual) Basophils # (Manual) PT INR APTT ABG pH ABG pO2 ABG HCO3 ABG O2 Saturation ABG Base Excess ABG Hemoglobin Oxyhemoglobin Sodium Potassium Chloride Carbon Dioxide BUN Creatinine Glucose POC Glucose 145 H 127 H Lactic Acid Calcium Ionized Calcium Phosphorus Magnesium Total Bilirubin AST ALT Alkaline Phosphatase Ammonia Total Creatine Kinase CK-MB (CK-2) CK-MB (CK-2) Rel Index Total Protein Albumin Urine WBC (Auto) Vancomycin Trough Salicylates Acetaminophen Plasma/Serum Alcohol Crossmatch See Detail 12/22/19 12/22/19 12/22/19 04:43 05:56 08:40 WBC RBC Hgb Hct MCH RDW Plt Count Lymph % (Auto) [place] % (Auto) [place] # Baso # Seg Neutrophils % Seg Neuts % (Manual) Lymphocytes % (Manual) Monocytes % (Manual) Seg Neutrophils # Seg Neutrophils # Man Lymphocytes # (Manual) Monocytes # (Manual) Eosinophils # (Manual) Basophils # (Manual) PT INR APTT ABG pH ABG pO2 75.6 L ABG HCO3 ABG O2 Saturation ABG Base Excess -2.6 L ABG Hemoglobin 6.8 L Oxyhemoglobin 94.6 L Sodium Potassium Chloride Carbon Dioxide 17 L BUN 60 H Creatinine 1.4 H Glucose 126 H POC Glucose 153 H Lactic Acid Calcium Ionized Calcium Phosphorus Magnesium Total Bilirubin AST ALT Alkaline Phosphatase Ammonia Total Creatine Kinase CK-MB (CK-2) CK-MB (CK-2) Rel Index Total Protein Albumin Urine WBC (Auto) Vancomycin Trough Salicylates Acetaminophen Plasma/Serum Alcohol Crossmatch 12/22/19 12/22/19 12/23/19 12:07 17:49 04:30 WBC 22.4 H RBC 2.68 L Hgb 7.6 L Hct 22.9 L MCH RDW 19.9 H Plt Count 998 H Lymph % (Auto) [place] % (Auto) [place] # Baso # Seg Neutrophils % Seg Neuts % (Manual) 88.0 H Lymphocytes % (Manual) 2.0 L Monocytes % (Manual) 9.0 H Seg Neutrophils # Seg Neutrophils # Man 19.7 H Lymphocytes # (Manual) 0.4 L Monocytes # (Manual) 2.0 H Eosinophils # (Manual) Basophils # (Manual) PT INR APTT ABG pH ABG pO2 ABG HCO3 ABG O2 Saturation ABG Base Excess ABG Hemoglobin Oxyhemoglobin Sodium Potassium Chloride Carbon Dioxide BUN Creatinine Glucose POC Glucose 140 H 116 H Lactic Acid Calcium Ionized Calcium Phosphorus Magnesium Total Bilirubin AST ALT Alkaline Phosphatase Ammonia Total Creatine Kinase CK-MB (CK-2) CK-MB (CK-2) Rel Index Total Protein Albumin Urine WBC (Auto) Vancomycin Trough Salicylates Acetaminophen Plasma/Serum Alcohol Crossmatch 12/23/19 12/23/19 12/23/19 04:30 12:00 18:06 WBC RBC Hgb Hct MCH RDW Plt Count Lymph % (Auto) [place] % (Auto) [place] # Baso # Seg Neutrophils % Seg Neuts % (Manual) Lymphocytes % (Manual) Monocytes % (Manual) Seg Neutrophils # Seg Neutrophils # Man Lymphocytes # (Manual) Monocytes # (Manual) Eosinophils # (Manual) Basophils # (Manual) PT INR APTT ABG pH ABG pO2 ABG HCO3 ABG O2 Saturation ABG Base Excess ABG Hemoglobin Oxyhemoglobin Sodium Potassium 5.2 H Chloride Carbon Dioxide 21 L BUN 69 H Creatinine 1.5 H Glucose 117 H POC Glucose 128 H 138 H Lactic Acid Calcium Ionized Calcium Phosphorus Magnesium Total Bilirubin AST ALT Alkaline Phosphatase Ammonia Total Creatine Kinase CK-MB (CK-2) CK-MB (CK-2) Rel Index Total Protein Albumin Urine WBC (Auto) Vancomycin Trough Salicylates Acetaminophen Plasma/Serum Alcohol Crossmatch 12/23/19 12/24/19 12/24/19 23:46 04:31 05:08 WBC RBC Hgb Hct MCH RDW Plt Count Lymph % (Auto) [place] % (Auto) [place] # Baso # Seg Neutrophils % Seg Neuts % (Manual) Lymphocytes % (Manual) Monocytes % (Manual) Seg Neutrophils # Seg Neutrophils # Man Lymphocytes # (Manual) Monocytes # (Manual) Eosinophils # (Manual) Basophils # (Manual) PT INR APTT ABG pH ABG pO2 ABG HCO3 ABG O2 Saturation ABG Base Excess ABG Hemoglobin Oxyhemoglobin Sodium Potassium 5.3 H Chloride 107.6 H Carbon Dioxide 20 L BUN 72 H Creatinine 1.6 H Glucose 120 H POC Glucose 120 H 140 H Lactic Acid Calcium Ionized Calcium Phosphorus Magnesium Total Bilirubin AST ALT Alkaline Phosphatase Ammonia Total Creatine Kinase CK-MB (CK-2) CK-MB (CK-2) Rel Index Total Protein Albumin Urine WBC (Auto) Vancomycin Trough Salicylates Acetaminophen Plasma/Serum Alcohol Crossmatch 12/24/19 12/24/19 12/25/19 11:58 17:49 03:47 WBC 36.2 H RBC 2.92 L Hgb 8.4 L Hct 26.1 L MCH RDW 20.2 H Plt Count 942 H Lymph % (Auto) [place] % (Auto) [place] # Baso # Seg Neutrophils % Seg Neuts % (Manual) 97.5 H Lymphocytes % (Manual) 1.0 L Monocytes % (Manual) Seg Neutrophils # Seg Neutrophils # Man 35.3 H Lymphocytes # (Manual) 0.4 L Monocytes # (Manual) Eosinophils # (Manual) Basophils # (Manual) PT INR APTT ABG pH ABG pO2 ABG HCO3 ABG O2 Saturation ABG Base Excess ABG Hemoglobin Oxyhemoglobin Sodium Potassium Chloride Carbon Dioxide BUN Creatinine Glucose POC Glucose 146 H 131 H Lactic Acid Calcium Ionized Calcium Phosphorus Magnesium Total Bilirubin AST ALT Alkaline Phosphatase Ammonia Total Creatine Kinase CK-MB (CK-2) CK-MB (CK-2) Rel Index Total Protein Albumin Urine WBC (Auto) Vancomycin Trough Salicylates Acetaminophen Plasma/Serum Alcohol Crossmatch 12/25/19 12/25/19 12/25/19 03:47 05:30 12:23 WBC RBC Hgb Hct MCH RDW Plt Count Lymph % (Auto) [place] % (Auto) [place] # Baso # Seg Neutrophils % Seg Neuts % (Manual) Lymphocytes % (Manual) Monocytes % (Manual) Seg Neutrophils # Seg Neutrophils # Man Lymphocytes # (Manual) Monocytes # (Manual) Eosinophils # (Manual) Basophils # (Manual) PT INR APTT ABG pH ABG pO2 ABG HCO3 ABG O2 Saturation ABG Base Excess ABG Hemoglobin Oxyhemoglobin Sodium Potassium Chloride Carbon Dioxide 15 L BUN 70 H Creatinine 1.7 H Glucose 153 H POC Glucose 169 H 135 H Lactic Acid Calcium Ionized Calcium Phosphorus Magnesium Total Bilirubin AST ALT Alkaline Phosphatase Ammonia Total Creatine Kinase CK-MB (CK-2) CK-MB (CK-2) Rel Index Total Protein Albumin Urine WBC (Auto) Vancomycin Trough Salicylates Acetaminophen Plasma/Serum Alcohol Crossmatch 12/25/19 12/25/19 12/26/19 17:37 23:29 09:47 WBC 22.1 H RBC 2.83 L Hgb 7.9 L Hct 25.5 L MCH RDW 20.0 H Plt Count 894 H Lymph % (Auto) [place] % (Auto) [place] # Baso # Seg Neutrophils % Seg Neuts % (Manual) Lymphocytes % (Manual) Monocytes % (Manual) Seg Neutrophils # Seg Neutrophils # Man Lymphocytes # (Manual) Monocytes # (Manual) Eosinophils # (Manual) Basophils # (Manual) PT INR APTT ABG pH ABG pO2 ABG HCO3 ABG O2 Saturation ABG Base Excess ABG Hemoglobin Oxyhemoglobin Sodium Potassium Chloride Carbon Dioxide BUN Creatinine Glucose POC Glucose 120 H 140 H Lactic Acid Calcium Ionized Calcium Phosphorus Magnesium Total Bilirubin AST ALT Alkaline Phosphatase Ammonia Total Creatine Kinase CK-MB (CK-2) CK-MB (CK-2) Rel Index Total Protein Albumin Urine WBC (Auto) Vancomycin Trough Salicylates Acetaminophen Plasma/Serum Alcohol Crossmatch 12/26/19 12/26/19 12/26/19 09:47 11:46 17:52 WBC RBC Hgb Hct MCH RDW Plt Count Lymph % (Auto) [place] % (Auto) [place] # Baso # Seg Neutrophils % Seg Neuts % (Manual) Lymphocytes % (Manual) Monocytes % (Manual) Seg Neutrophils # Seg Neutrophils # Man Lymphocytes # (Manual) Monocytes # (Manual) Eosinophils # (Manual) Basophils # (Manual) PT INR APTT ABG pH ABG pO2 ABG HCO3 ABG O2 Saturation ABG Base Excess ABG Hemoglobin Oxyhemoglobin Sodium Potassium Chloride Carbon Dioxide 18 L BUN 65 H Creatinine 1.4 H Glucose 132 H POC Glucose 110 H 145 H Lactic Acid Calcium Ionized Calcium Phosphorus Magnesium Total Bilirubin AST ALT Alkaline Phosphatase Ammonia Total Creatine Kinase CK-MB (CK-2) CK-MB (CK-2) Rel Index Total Protein Albumin Urine WBC (Auto) Vancomycin Trough Salicylates Acetaminophen Plasma/Serum Alcohol Crossmatch 12/27/19 12/27/19 12/27/19 00:01 03:42 03:42 WBC 18.0 H RBC 2.86 L Hgb 8.0 L Hct 25.2 L MCH RDW 19.2 H Plt Count 873 H Lymph % (Auto) 8.4 L [place] % (Auto) 7.5 H [place] # 1.4 H Baso # 0.2 H Seg Neutrophils % 82.2 H Seg Neuts % (Manual) Lymphocytes % (Manual) Monocytes % (Manual) Seg Neutrophils # 14.8 H Seg Neutrophils # Man Lymphocytes # (Manual) Monocytes # (Manual) Eosinophils # (Manual) Basophils # (Manual) PT INR APTT ABG pH ABG pO2 ABG HCO3 ABG O2 Saturation ABG Base Excess ABG Hemoglobin Oxyhemoglobin Sodium Potassium Chloride Carbon Dioxide BUN 73 H Creatinine 1.4 H Glucose 119 H POC Glucose 124 H Lactic Acid Calcium Ionized Calcium Phosphorus Magnesium Total Bilirubin AST ALT Alkaline Phosphatase Ammonia Total Creatine Kinase CK-MB (CK-2) CK-MB (CK-2) Rel Index Total Protein Albumin Urine WBC (Auto) Vancomycin Trough Salicylates Acetaminophen Plasma/Serum Alcohol Crossmatch 12/27/19 12/27/19 12/27/19 05:45 11:45 17:29 WBC RBC Hgb Hct MCH RDW Plt Count Lymph % (Auto) [place] % (Auto) [place] # Baso # Seg Neutrophils % Seg Neuts % (Manual) Lymphocytes % (Manual) Monocytes % (Manual) Seg Neutrophils # Seg Neutrophils # Man Lymphocytes # (Manual) Monocytes # (Manual) Eosinophils # (Manual) Basophils # (Manual) PT INR APTT ABG pH ABG pO2 ABG HCO3 ABG O2 Saturation ABG Base Excess ABG Hemoglobin Oxyhemoglobin Sodium Potassium Chloride Carbon Dioxide BUN Creatinine Glucose POC Glucose 131 H 123 H 134 H Lactic Acid Calcium Ionized Calcium Phosphorus Magnesium Total Bilirubin AST ALT Alkaline Phosphatase Ammonia Total Creatine Kinase CK-MB (CK-2) CK-MB (CK-2) Rel Index Total Protein Albumin Urine WBC (Auto) Vancomycin Trough Salicylates Acetaminophen Plasma/Serum Alcohol Crossmatch 12/28/19 12/28/19 12/28/19 00:12 05:14 11:53 WBC RBC Hgb Hct MCH RDW Plt Count Lymph % (Auto) [place] % (Auto) [place] # Baso # Seg Neutrophils % Seg Neuts % (Manual) Lymphocytes % (Manual) Monocytes % (Manual) Seg Neutrophils # Seg Neutrophils # Man Lymphocytes # (Manual) Monocytes # (Manual) Eosinophils # (Manual) Basophils # (Manual) PT INR APTT ABG pH ABG pO2 ABG HCO3 ABG O2 Saturation ABG Base Excess ABG Hemoglobin Oxyhemoglobin Sodium Potassium Chloride Carbon Dioxide BUN Creatinine Glucose POC Glucose 138 H 130 H 146 H Lactic Acid Calcium Ionized Calcium Phosphorus Magnesium Total Bilirubin AST ALT Alkaline Phosphatase Ammonia Total Creatine Kinase CK-MB (CK-2) CK-MB (CK-2) Rel Index Total Protein Albumin Urine WBC (Auto) Vancomycin Trough Salicylates Acetaminophen Plasma/Serum Alcohol Crossmatch 12/28/19 12/29/19 12/29/19 17:39 00:01 18:11 WBC RBC Hgb Hct MCH RDW Plt Count Lymph % (Auto) [place] % (Auto) [place] # Baso # Seg Neutrophils % Seg Neuts % (Manual) Lymphocytes % (Manual) Monocytes % (Manual) Seg Neutrophils # Seg Neutrophils # Man Lymphocytes # (Manual) Monocytes # (Manual) Eosinophils # (Manual) Basophils # (Manual) PT INR APTT ABG pH ABG pO2 ABG HCO3 ABG O2 Saturation ABG Base Excess ABG Hemoglobin Oxyhemoglobin Sodium Potassium Chloride Carbon Dioxide BUN Creatinine Glucose POC Glucose 117 H 139 H 130 H Lactic Acid Calcium Ionized Calcium Phosphorus Magnesium Total Bilirubin AST ALT Alkaline Phosphatase Ammonia Total Creatine Kinase CK-MB (CK-2) CK-MB (CK-2) Rel Index Total Protein Albumin Urine WBC (Auto) Vancomycin Trough Salicylates Acetaminophen Plasma/Serum Alcohol Crossmatch 12/29/19 12/30/19 12/30/19 23:09 00:02 01:06 WBC 16.7 H RBC 2.91 L Hgb 8.2 L Hct 25.4 L MCH RDW 18.7 H Plt Count 708 H Lymph % (Auto) 9.4 L [place] % (Auto) [place] # 0.9 H Baso # Seg Neutrophils % 83.5 H Seg Neuts % (Manual) Lymphocytes % (Manual) Monocytes % (Manual) Seg Neutrophils # 14.0 H Seg Neutrophils # Man Lymphocytes # (Manual) Monocytes # (Manual) Eosinophils # (Manual) Basophils # (Manual) PT INR APTT ABG pH ABG pO2 ABG HCO3 ABG O2 Saturation ABG Base Excess ABG Hemoglobin Oxyhemoglobin Sodium Potassium Chloride Carbon Dioxide BUN Creatinine Glucose POC Glucose 120 H 114 H Lactic Acid Calcium Ionized Calcium Phosphorus Magnesium Total Bilirubin AST ALT Alkaline Phosphatase Ammonia Total Creatine Kinase CK-MB (CK-2) CK-MB (CK-2) Rel Index Total Protein Albumin Urine WBC (Auto) Vancomycin Trough Salicylates Acetaminophen Plasma/Serum Alcohol Crossmatch 12/30/19 12/30/19 12/30/19 01:06 04:23 05:18 WBC RBC Hgb Hct MCH RDW Plt Count Lymph % (Auto) [place] % (Auto) [place] # Baso # Seg Neutrophils % Seg Neuts % (Manual) Lymphocytes % (Manual) Monocytes % (Manual) Seg Neutrophils # Seg Neutrophils # Man Lymphocytes # (Manual) Monocytes # (Manual) Eosinophils # (Manual) Basophils # (Manual) PT INR APTT ABG pH ABG pO2 ABG HCO3 ABG O2 Saturation ABG Base Excess ABG Hemoglobin 8.3 L Oxyhemoglobin Sodium Potassium Chloride Carbon Dioxide BUN 70 H Creatinine Glucose 122 H POC Glucose 130 H Lactic Acid Calcium Ionized Calcium Phosphorus Magnesium Total Bilirubin AST ALT Alkaline Phosphatase Ammonia Total Creatine Kinase CK-MB (CK-2) CK-MB (CK-2) Rel Index Total Protein Albumin Urine WBC (Auto) Vancomycin Trough Salicylates Acetaminophen Plasma/Serum Alcohol Crossmatch 12/30/19 12/30/19 12/30/19 05:40 12:17 17:43 WBC RBC Hgb Hct MCH RDW Plt Count Lymph % (Auto) [place] % (Auto) [place] # Baso # Seg Neutrophils % Seg Neuts % (Manual) Lymphocytes % (Manual) Monocytes % (Manual) Seg Neutrophils # Seg Neutrophils # Man Lymphocytes # (Manual) Monocytes # (Manual) Eosinophils # (Manual) Basophils # (Manual) PT INR APTT ABG pH ABG pO2 ABG HCO3 ABG O2 Saturation ABG Base Excess ABG Hemoglobin Oxyhemoglobin Sodium Potassium Chloride Carbon Dioxide BUN Creatinine Glucose POC Glucose 135 H 132 H 118 H Lactic Acid Calcium Ionized Calcium Phosphorus Magnesium Total Bilirubin AST ALT Alkaline Phosphatase Ammonia Total Creatine Kinase CK-MB (CK-2) CK-MB (CK-2) Rel Index Total Protein Albumin Urine WBC (Auto) Vancomycin Trough Salicylates Acetaminophen Plasma/Serum Alcohol Crossmatch 12/30/19 12/31/19 12/31/19 23:29 05:19 17:50 WBC RBC Hgb Hct MCH RDW Plt Count Lymph % (Auto) [place] % (Auto) [place] # Baso # Seg Neutrophils % Seg Neuts % (Manual) Lymphocytes % (Manual) Monocytes % (Manual) Seg Neutrophils # Seg Neutrophils # Man Lymphocytes # (Manual) Monocytes # (Manual) Eosinophils # (Manual) Basophils # (Manual) PT INR APTT ABG pH ABG pO2 ABG HCO3 ABG O2 Saturation ABG Base Excess ABG Hemoglobin Oxyhemoglobin Sodium Potassium Chloride Carbon Dioxide BUN Creatinine Glucose POC Glucose 114 H 109 H 116 H Lactic Acid Calcium Ionized Calcium Phosphorus Magnesium Total Bilirubin AST ALT Alkaline Phosphatase Ammonia Total Creatine Kinase CK-MB (CK-2) CK-MB (CK-2) Rel Index Total Protein Albumin Urine WBC (Auto) Vancomycin Trough Salicylates Acetaminophen Plasma/Serum Alcohol Crossmatch 01/01/20 01/01/20 01/01/20 00:10 05:19 12:02 WBC RBC Hgb Hct MCH RDW Plt Count Lymph % (Auto) [place] % (Auto) [place] # Baso # Seg Neutrophils % Seg Neuts % (Manual) Lymphocytes % (Manual) Monocytes % (Manual) Seg Neutrophils # Seg Neutrophils # Man Lymphocytes # (Manual) Monocytes # (Manual) Eosinophils # (Manual) Basophils # (Manual) PT INR APTT ABG pH ABG pO2 ABG HCO3 ABG O2 Saturation ABG Base Excess ABG Hemoglobin Oxyhemoglobin Sodium Potassium Chloride Carbon Dioxide BUN Creatinine Glucose POC Glucose 131 H 122 H 136 H Lactic Acid Calcium Ionized Calcium Phosphorus Magnesium Total Bilirubin AST ALT Alkaline Phosphatase Ammonia Total Creatine Kinase CK-MB (CK-2) CK-MB (CK-2) Rel Index Total Protein Albumin Urine WBC (Auto) Vancomycin Trough Salicylates Acetaminophen Plasma/Serum Alcohol Crossmatch 01/02/20 01/02/20 01/02/20 00:24 05:36 11:41 WBC RBC Hgb Hct MCH RDW Plt Count Lymph % (Auto) [place] % (Auto) [place] # Baso # Seg Neutrophils % Seg Neuts % (Manual) Lymphocytes % (Manual) Monocytes % (Manual) Seg Neutrophils # Seg Neutrophils # Man Lymphocytes # (Manual) Monocytes # (Manual) Eosinophils # (Manual) Basophils # (Manual) PT INR APTT ABG pH ABG pO2 ABG HCO3 ABG O2 Saturation ABG Base Excess ABG Hemoglobin Oxyhemoglobin Sodium Potassium Chloride Carbon Dioxide BUN Creatinine Glucose POC Glucose 119 H 109 H 125 H Lactic Acid Calcium Ionized Calcium Phosphorus Magnesium Total Bilirubin AST ALT Alkaline Phosphatase Ammonia Total Creatine Kinase CK-MB (CK-2) CK-MB (CK-2) Rel Index Total Protein Albumin Urine WBC (Auto) Vancomycin Trough Salicylates Acetaminophen Plasma/Serum Alcohol Crossmatch 01/02/20 01/03/20 01/03/20 17:49 05:29 12:13 WBC RBC Hgb Hct MCH RDW Plt Count Lymph % (Auto) [place] % (Auto) [place] # Baso # Seg Neutrophils % Seg Neuts % (Manual) Lymphocytes % (Manual) Monocytes % (Manual) Seg Neutrophils # Seg Neutrophils # Man Lymphocytes # (Manual) Monocytes # (Manual) Eosinophils # (Manual) Basophils # (Manual) PT INR APTT ABG pH ABG pO2 ABG HCO3 ABG O2 Saturation ABG Base Excess ABG Hemoglobin Oxyhemoglobin Sodium Potassium Chloride Carbon Dioxide BUN Creatinine Glucose POC Glucose 130 H 132 H 113 H Lactic Acid Calcium Ionized Calcium Phosphorus Magnesium Total Bilirubin AST ALT Alkaline Phosphatase Ammonia Total Creatine Kinase CK-MB (CK-2) CK-MB (CK-2) Rel Index Total Protein Albumin Urine WBC (Auto) Vancomycin Trough Salicylates Acetaminophen Plasma/Serum Alcohol Crossmatch 01/03/20 01/04/20 01/04/20 17:32 00:19 05:26 WBC RBC Hgb Hct MCH RDW Plt Count Lymph % (Auto) [place] % (Auto) [place] # Baso # Seg Neutrophils % Seg Neuts % (Manual) Lymphocytes % (Manual) Monocytes % (Manual) Seg Neutrophils # Seg Neutrophils # Man Lymphocytes # (Manual) Monocytes # (Manual) Eosinophils # (Manual) Basophils # (Manual) PT INR APTT ABG pH ABG pO2 ABG HCO3 ABG O2 Saturation ABG Base Excess ABG Hemoglobin Oxyhemoglobin Sodium Potassium Chloride Carbon Dioxide BUN Creatinine Glucose POC Glucose 127 H 141 H 129 H Lactic Acid Calcium Ionized Calcium Phosphorus Magnesium Total Bilirubin AST ALT Alkaline Phosphatase Ammonia Total Creatine Kinase CK-MB (CK-2) CK-MB (CK-2) Rel Index Total Protein Albumin Urine WBC (Auto) Vancomycin Trough Salicylates Acetaminophen Plasma/Serum Alcohol Crossmatch 01/04/20 01/04/20 01/05/20 11:39 17:29 05:22 WBC RBC Hgb Hct MCH RDW Plt Count Lymph % (Auto) [place] % (Auto) [place] # Baso # Seg Neutrophils % Seg Neuts % (Manual) Lymphocytes % (Manual) Monocytes % (Manual) Seg Neutrophils # Seg Neutrophils # Man Lymphocytes # (Manual) Monocytes # (Manual) Eosinophils # (Manual) Basophils # (Manual) PT INR APTT ABG pH ABG pO2 ABG HCO3 ABG O2 Saturation ABG Base Excess ABG Hemoglobin Oxyhemoglobin Sodium Potassium Chloride Carbon Dioxide BUN Creatinine Glucose POC Glucose 167 H 132 H 121 H Lactic Acid Calcium Ionized Calcium Phosphorus Magnesium Total Bilirubin AST ALT Alkaline Phosphatase Ammonia Total Creatine Kinase CK-MB (CK-2) CK-MB (CK-2) Rel Index Total Protein Albumin Urine WBC (Auto) Vancomycin Trough Salicylates Acetaminophen Plasma/Serum Alcohol Crossmatch 01/05/20 01/05/20 01/05/20 12:25 17:40 18:06 WBC RBC Hgb Hct MCH RDW Plt Count Lymph % (Auto) [place] % (Auto) [place] # Baso # Seg Neutrophils % Seg Neuts % (Manual) Lymphocytes % (Manual) Monocytes % (Manual) Seg Neutrophils # Seg Neutrophils # Man Lymphocytes # (Manual) Monocytes # (Manual) Eosinophils # (Manual) Basophils # (Manual) PT INR APTT ABG pH 7.472 H ABG pO2 99.2 H ABG HCO3 ABG O2 Saturation ABG Base Excess ABG Hemoglobin 7.8 L Oxyhemoglobin Sodium Potassium Chloride Carbon Dioxide BUN Creatinine Glucose POC Glucose 106 H 110 H Lactic Acid Calcium Ionized Calcium Phosphorus Magnesium Total Bilirubin AST ALT Alkaline Phosphatase Ammonia Total Creatine Kinase CK-MB (CK-2) CK-MB (CK-2) Rel Index Total Protein Albumin Urine WBC (Auto) Vancomycin Trough Salicylates Acetaminophen Plasma/Serum Alcohol Crossmatch 01/06/20 01/06/20 01/06/20 00:11 05:16 11:30 WBC RBC Hgb Hct MCH RDW Plt Count Lymph % (Auto) [place] % (Auto) [place] # Baso # Seg Neutrophils % Seg Neuts % (Manual) Lymphocytes % (Manual) Monocytes % (Manual) Seg Neutrophils # Seg Neutrophils # Man Lymphocytes # (Manual) Monocytes # (Manual) Eosinophils # (Manual) Basophils # (Manual) PT INR APTT ABG pH ABG pO2 ABG HCO3 ABG O2 Saturation ABG Base Excess ABG Hemoglobin Oxyhemoglobin Sodium Potassium Chloride Carbon Dioxide BUN Creatinine Glucose POC Glucose 108 H 124 H 125 H Lactic Acid Calcium Ionized Calcium Phosphorus Magnesium Total Bilirubin AST ALT Alkaline Phosphatase Ammonia Total Creatine Kinase CK-MB (CK-2) CK-MB (CK-2) Rel Index Total Protein Albumin Urine WBC (Auto) Vancomycin Trough Salicylates Acetaminophen Plasma/Serum Alcohol Crossmatch 01/06/20 01/06/20 01/07/20 17:53 23:51 04:12 WBC 16.5 H RBC 3.29 L Hgb 9.3 L Hct 28.1 L MCH RDW 18.2 H Plt Count 526 H Lymph % (Auto) 8.4 L [place] % (Auto) [place] # 1.0 H Baso # Seg Neutrophils % 84.4 H Seg Neuts % (Manual) Lymphocytes % (Manual) Monocytes % (Manual) Seg Neutrophils # 13.9 H Seg Neutrophils # Man Lymphocytes # (Manual) Monocytes # (Manual) Eosinophils # (Manual) Basophils # (Manual) PT INR APTT ABG pH ABG pO2 ABG HCO3 ABG O2 Saturation ABG Base Excess ABG Hemoglobin Oxyhemoglobin Sodium Potassium Chloride Carbon Dioxide BUN Creatinine Glucose POC Glucose 166 H 128 H Lactic Acid Calcium Ionized Calcium Phosphorus Magnesium Total Bilirubin AST ALT Alkaline Phosphatase Ammonia Total Creatine Kinase CK-MB (CK-2) CK-MB (CK-2) Rel Index Total Protein Albumin Urine WBC (Auto) Vancomycin Trough Salicylates Acetaminophen Plasma/Serum Alcohol Crossmatch 01/07/20 01/07/20 01/07/20 04:12 04:45 11:51 WBC RBC Hgb Hct MCH RDW Plt Count Lymph % (Auto) [place] % (Auto) [place] # Baso # Seg Neutrophils % Seg Neuts % (Manual) Lymphocytes % (Manual) Monocytes % (Manual) Seg Neutrophils # Seg Neutrophils # Man Lymphocytes # (Manual) Monocytes # (Manual) Eosinophils # (Manual) Basophils # (Manual) PT INR APTT ABG pH ABG pO2 ABG HCO3 ABG O2 Saturation ABG Base Excess ABG Hemoglobin Oxyhemoglobin Sodium 136 L Potassium Chloride Carbon Dioxide 21 L BUN 44 H Creatinine 0.6 L Glucose 124 H POC Glucose 134 H 138 H Lactic Acid Calcium Ionized Calcium Phosphorus Magnesium Total Bilirubin AST ALT Alkaline Phosphatase Ammonia Total Creatine Kinase CK-MB (CK-2) CK-MB (CK-2) Rel Index Total Protein Albumin Urine WBC (Auto) Vancomycin Trough Salicylates Acetaminophen Plasma/Serum Alcohol Crossmatch 01/07/20 01/08/20 01/08/20 17:36 00:33 05:29 WBC RBC Hgb Hct MCH RDW Plt Count Lymph % (Auto) [place] % (Auto) [place] # Baso # Seg Neutrophils % Seg Neuts % (Manual) Lymphocytes % (Manual) Monocytes % (Manual) Seg Neutrophils # Seg Neutrophils # Man Lymphocytes # (Manual) Monocytes # (Manual) Eosinophils # (Manual) Basophils # (Manual) PT INR APTT ABG pH ABG pO2 ABG HCO3 ABG O2 Saturation ABG Base Excess ABG Hemoglobin Oxyhemoglobin Sodium Potassium Chloride Carbon Dioxide BUN Creatinine Glucose POC Glucose 128 H 119 H 124 H Lactic Acid Calcium Ionized Calcium Phosphorus Magnesium Total Bilirubin AST ALT Alkaline Phosphatase Ammonia Total Creatine Kinase CK-MB (CK-2) CK-MB (CK-2) Rel Index Total Protein Albumin Urine WBC (Auto) Vancomycin Trough Salicylates Acetaminophen Plasma/Serum Alcohol Crossmatch 01/08/20 01/08/20 01/08/20 12:51 20:25 23:22 WBC RBC Hgb Hct MCH RDW Plt Count Lymph % (Auto) [place] % (Auto) [place] # Baso # Seg Neutrophils % Seg Neuts % (Manual) Lymphocytes % (Manual) Monocytes % (Manual) Seg Neutrophils # Seg Neutrophils # Man Lymphocytes # (Manual) Monocytes # (Manual) Eosinophils # (Manual) Basophils # (Manual) PT INR APTT ABG pH ABG pO2 132.2 H ABG HCO3 ABG O2 Saturation ABG Base Excess ABG Hemoglobin Oxyhemoglobin Sodium Potassium Chloride Carbon Dioxide BUN Creatinine Glucose POC Glucose 128 H 127 H Lactic Acid Calcium Ionized Calcium Phosphorus Magnesium Total Bilirubin AST ALT Alkaline Phosphatase Ammonia Total Creatine Kinase CK-MB (CK-2) CK-MB (CK-2) Rel Index Total Protein Albumin Urine WBC (Auto) Vancomycin Trough Salicylates Acetaminophen Plasma/Serum Alcohol Crossmatch 01/09/20 01/09/20 01/09/20 05:48 08:51 11:29 WBC RBC Hgb Hct MCH RDW Plt Count Lymph % (Auto) [place] % (Auto) [place] # Baso # Seg Neutrophils % Seg Neuts % (Manual) Lymphocytes % (Manual) Monocytes % (Manual) Seg Neutrophils # Seg Neutrophils # Man Lymphocytes # (Manual) Monocytes # (Manual) Eosinophils # (Manual) Basophils # (Manual) PT INR APTT ABG pH ABG pO2 94.3 H ABG HCO3 ABG O2 Saturation ABG Base Excess ABG Hemoglobin 9.5 L Oxyhemoglobin Sodium Potassium Chloride Carbon Dioxide BUN Creatinine Glucose POC Glucose 120 H 112 H Lactic Acid Calcium Ionized Calcium Phosphorus Magnesium Total Bilirubin AST ALT Alkaline Phosphatase Ammonia Total Creatine Kinase CK-MB (CK-2) CK-MB (CK-2) Rel Index Total Protein Albumin Urine WBC (Auto) Vancomycin Trough Salicylates Acetaminophen Plasma/Serum Alcohol Crossmatch 01/09/20 01/10/20 01/10/20 17:57 05:17 12:28 WBC RBC Hgb Hct MCH RDW Plt Count Lymph % (Auto) [place] % (Auto) [place] # Baso # Seg Neutrophils % Seg Neuts % (Manual) Lymphocytes % (Manual) Monocytes % (Manual) Seg Neutrophils # Seg Neutrophils # Man Lymphocytes # (Manual) Monocytes # (Manual) Eosinophils # (Manual) Basophils # (Manual) PT INR APTT ABG pH ABG pO2 ABG HCO3 ABG O2 Saturation ABG Base Excess ABG Hemoglobin Oxyhemoglobin Sodium Potassium Chloride Carbon Dioxide BUN Creatinine Glucose POC Glucose 122 H 115 H 116 H Lactic Acid Calcium Ionized Calcium Phosphorus Magnesium Total Bilirubin AST ALT Alkaline Phosphatase Ammonia Total Creatine Kinase CK-MB (CK-2) CK-MB (CK-2) Rel Index Total Protein Albumin Urine WBC (Auto) Vancomycin Trough Salicylates Acetaminophen Plasma/Serum Alcohol Crossmatch 01/10/20 01/10/20 01/11/20 18:25 23:47 06:05 WBC RBC Hgb Hct MCH RDW Plt Count Lymph % (Auto) [place] % (Auto) [place] # Baso # Seg Neutrophils % Seg Neuts % (Manual) Lymphocytes % (Manual) Monocytes % (Manual) Seg Neutrophils # Seg Neutrophils # Man Lymphocytes # (Manual) Monocytes # (Manual) Eosinophils # (Manual) Basophils # (Manual) PT INR APTT ABG pH ABG pO2 ABG HCO3 ABG O2 Saturation ABG Base Excess ABG Hemoglobin Oxyhemoglobin Sodium Potassium Chloride Carbon Dioxide BUN Creatinine Glucose POC Glucose 123 H 115 H 151 H Lactic Acid Calcium Ionized Calcium Phosphorus Magnesium Total Bilirubin AST ALT Alkaline Phosphatase Ammonia Total Creatine Kinase CK-MB (CK-2) CK-MB (CK-2) Rel Index Total Protein Albumin Urine WBC (Auto) Vancomycin Trough Salicylates Acetaminophen Plasma/Serum Alcohol Crossmatch 04/24/20 04/24/20 04/24/20 07:00 07:00 12:27 WBC 11.8 H RBC 3.40 L Hgb 9.4 L Hct 29.3 L MCH RDW 18.1 H Plt Count 549 H Lymph % (Auto) [place] % (Auto) 9.1 H [place] # 1.1 H Baso # Seg Neutrophils % 73.3 H Seg Neuts % (Manual) Lymphocytes % (Manual) Monocytes % (Manual) Seg Neutrophils # 8.7 H Seg Neutrophils # Man Lymphocytes # (Manual) Monocytes # (Manual) Eosinophils # (Manual) Basophils # (Manual) PT INR APTT ABG pH ABG pO2 ABG HCO3 ABG O2 Saturation ABG Base Excess ABG Hemoglobin Oxyhemoglobin Sodium 134 L Potassium Chloride 97.7 L Carbon Dioxide 21 L BUN 38 H Creatinine 0.5 L Glucose 168 H POC Glucose 117 H Lactic Acid Calcium 10.5 H Ionized Calcium Phosphorus Magnesium Total Bilirubin AST ALT Alkaline Phosphatase Ammonia Total Creatine Kinase CK-MB (CK-2) CK-MB (CK-2) Rel Index Total Protein Albumin Urine WBC (Auto) Vancomycin Trough Salicylates Acetaminophen Plasma/Serum Alcohol Crossmatch 01/11/20 01/12/20 01/12/20 18:19 00:53 05:24 WBC RBC Hgb Hct MCH RDW Plt Count Lymph % (Auto) [place] % (Auto) [place] # Baso # Seg Neutrophils % Seg Neuts % (Manual) Lymphocytes % (Manual) Monocytes % (Manual) Seg Neutrophils # Seg Neutrophils # Man Lymphocytes # (Manual) Monocytes # (Manual) Eosinophils # (Manual) Basophils # (Manual) PT INR APTT ABG pH ABG pO2 ABG HCO3 ABG O2 Saturation ABG Base Excess ABG Hemoglobin Oxyhemoglobin Sodium Potassium Chloride Carbon Dioxide BUN Creatinine Glucose POC Glucose 126 H 126 H 128 H Lactic Acid Calcium Ionized Calcium Phosphorus Magnesium Total Bilirubin AST ALT Alkaline Phosphatase Ammonia Total Creatine Kinase CK-MB (CK-2) CK-MB (CK-2) Rel Index Total Protein Albumin Urine WBC (Auto) Vancomycin Trough Salicylates Acetaminophen Plasma/Serum Alcohol Crossmatch 01/12/20 01/12/20 01/13/20 13:39 18:02 00:27 WBC RBC Hgb Hct MCH RDW Plt Count Lymph % (Auto) [place] % (Auto) [place] # Baso # Seg Neutrophils % Seg Neuts % (Manual) Lymphocytes % (Manual) Monocytes % (Manual) Seg Neutrophils # Seg Neutrophils # Man Lymphocytes # (Manual) Monocytes # (Manual) Eosinophils # (Manual) Basophils # (Manual) PT INR APTT ABG pH ABG pO2 ABG HCO3 ABG O2 Saturation ABG Base Excess ABG Hemoglobin Oxyhemoglobin Sodium Potassium Chloride Carbon Dioxide BUN Creatinine Glucose POC Glucose 146 H 125 H 131 H Lactic Acid Calcium Ionized Calcium Phosphorus Magnesium Total Bilirubin AST ALT Alkaline Phosphatase Ammonia Total Creatine Kinase CK-MB (CK-2) CK-MB (CK-2) Rel Index Total Protein Albumin Urine WBC (Auto) Vancomycin Trough Salicylates Acetaminophen Plasma/Serum Alcohol Crossmatch 01/13/20 01/13/20 01/13/20 05:44 11:54 17:18 WBC RBC Hgb Hct MCH RDW Plt Count Lymph % (Auto) [place] % (Auto) [place] # Baso # Seg Neutrophils % Seg Neuts % (Manual) Lymphocytes % (Manual) Monocytes % (Manual) Seg Neutrophils # Seg Neutrophils # Man Lymphocytes # (Manual) Monocytes # (Manual) Eosinophils # (Manual) Basophils # (Manual) PT INR APTT ABG pH ABG pO2 ABG HCO3 ABG O2 Saturation ABG Base Excess ABG Hemoglobin Oxyhemoglobin Sodium Potassium Chloride Carbon Dioxide BUN Creatinine Glucose POC Glucose 148 H 140 H 130 H Lactic Acid Calcium Ionized Calcium Phosphorus Magnesium Total Bilirubin AST ALT Alkaline Phosphatase Ammonia Total Creatine Kinase CK-MB (CK-2) CK-MB (CK-2) Rel Index Total Protein Albumin Urine WBC (Auto) Vancomycin Trough Salicylates Acetaminophen Plasma/Serum Alcohol Crossmatch 01/14/20 01/14/20 01/14/20 00:16 05:45 12:19 WBC RBC Hgb Hct MCH RDW Plt Count Lymph % (Auto) [place] % (Auto) [place] # Baso # Seg Neutrophils % Seg Neuts % (Manual) Lymphocytes % (Manual) Monocytes % (Manual) Seg Neutrophils # Seg Neutrophils # Man Lymphocytes # (Manual) Monocytes # (Manual) Eosinophils # (Manual) Basophils # (Manual) PT INR APTT ABG pH ABG pO2 ABG HCO3 ABG O2 Saturation ABG Base Excess ABG Hemoglobin Oxyhemoglobin Sodium Potassium Chloride Carbon Dioxide BUN Creatinine Glucose POC Glucose 125 H 146 H 147 H Lactic Acid Calcium Ionized Calcium Phosphorus Magnesium Total Bilirubin AST ALT Alkaline Phosphatase Ammonia Total Creatine Kinase CK-MB (CK-2) CK-MB (CK-2) Rel Index Total Protein Albumin Urine WBC (Auto) Vancomycin Trough Salicylates Acetaminophen Plasma/Serum Alcohol Crossmatch 01/14/20 01/14/20 01/15/20 18:10 23:54 05:14 WBC RBC Hgb Hct MCH RDW Plt Count Lymph % (Auto) [place] % (Auto) [place] # Baso # Seg Neutrophils % Seg Neuts % (Manual) Lymphocytes % (Manual) Monocytes % (Manual) Seg Neutrophils # Seg Neutrophils # Man Lymphocytes # (Manual) Monocytes # (Manual) Eosinophils # (Manual) Basophils # (Manual) PT INR APTT ABG pH ABG pO2 ABG HCO3 ABG O2 Saturation ABG Base Excess ABG Hemoglobin Oxyhemoglobin Sodium Potassium Chloride Carbon Dioxide BUN Creatinine Glucose POC Glucose 136 H 109 H 111 H Lactic Acid Calcium Ionized Calcium Phosphorus Magnesium Total Bilirubin AST ALT Alkaline Phosphatase Ammonia Total Creatine Kinase CK-MB (CK-2) CK-MB (CK-2) Rel Index Total Protein Albumin Urine WBC (Auto) Vancomycin Trough Salicylates Acetaminophen Plasma/Serum Alcohol Crossmatch 01/15/20 01/15/20 01/16/20 12:34 23:25 05:06 WBC RBC Hgb Hct MCH RDW Plt Count Lymph % (Auto) [place] % (Auto) [place] # Baso # Seg Neutrophils % Seg Neuts % (Manual) Lymphocytes % (Manual) Monocytes % (Manual) Seg Neutrophils # Seg Neutrophils # Man Lymphocytes # (Manual) Monocytes # (Manual) Eosinophils # (Manual) Basophils # (Manual) PT INR APTT ABG pH ABG pO2 ABG HCO3 ABG O2 Saturation ABG Base Excess ABG Hemoglobin Oxyhemoglobin Sodium Potassium Chloride Carbon Dioxide BUN Creatinine Glucose POC Glucose 131 H 120 H 121 H Lactic Acid Calcium Ionized Calcium Phosphorus Magnesium Total Bilirubin AST ALT Alkaline Phosphatase Ammonia Total Creatine Kinase CK-MB (CK-2) CK-MB (CK-2) Rel Index Total Protein Albumin Urine WBC (Auto) Vancomycin Trough Salicylates Acetaminophen Plasma/Serum Alcohol Crossmatch 01/16/20 01/16/20 01/17/20 12:15 23:46 05:32 WBC 13.6 H RBC 3.27 L Hgb 9.3 L Hct 28.5 L MCH RDW 17.0 H Plt Count 490 H Lymph % (Auto) 13.1 L [place] % (Auto) [place] # 1.0 H Baso # Seg Neutrophils % 77.5 H Seg Neuts % (Manual) Lymphocytes % (Manual) Monocytes % (Manual) Seg Neutrophils # 10.5 H Seg Neutrophils # Man Lymphocytes # (Manual) Monocytes # (Manual) Eosinophils # (Manual) Basophils # (Manual) PT INR APTT ABG pH ABG pO2 ABG HCO3 ABG O2 Saturation ABG Base Excess ABG Hemoglobin Oxyhemoglobin Sodium Potassium Chloride Carbon Dioxide BUN Creatinine Glucose POC Glucose 152 H 107 H Lactic Acid Calcium Ionized Calcium Phosphorus Magnesium Total Bilirubin AST ALT Alkaline Phosphatase Ammonia Total Creatine Kinase CK-MB (CK-2) CK-MB (CK-2) Rel Index Total Protein Albumin Urine WBC (Auto) Vancomycin Trough Salicylates Acetaminophen Plasma/Serum Alcohol Crossmatch 01/17/20 01/17/20 01/17/20 06:47 12:16 17:21 WBC RBC Hgb Hct MCH RDW Plt Count Lymph % (Auto) [place] % (Auto) [place] # Baso # Seg Neutrophils % Seg Neuts % (Manual) Lymphocytes % (Manual) Monocytes % (Manual) Seg Neutrophils # Seg Neutrophils # Man Lymphocytes # (Manual) Monocytes # (Manual) Eosinophils # (Manual) Basophils # (Manual) PT INR APTT ABG pH ABG pO2 ABG HCO3 ABG O2 Saturation ABG Base Excess ABG Hemoglobin Oxyhemoglobin Sodium Potassium Chloride Carbon Dioxide BUN Creatinine Glucose POC Glucose 112 H 145 H 150 H Lactic Acid Calcium Ionized Calcium Phosphorus Magnesium Total Bilirubin AST ALT Alkaline Phosphatase Ammonia Total Creatine Kinase CK-MB (CK-2) CK-MB (CK-2) Rel Index Total Protein Albumin Urine WBC (Auto) Vancomycin Trough Salicylates Acetaminophen Plasma/Serum Alcohol Crossmatch 01/17/20 01/18/20 01/18/20 23:34 05:47 12:43 WBC RBC Hgb Hct MCH RDW Plt Count Lymph % (Auto) [place] % (Auto) [place] # Baso # Seg Neutrophils % Seg Neuts % (Manual) Lymphocytes % (Manual) Monocytes % (Manual) Seg Neutrophils # Seg Neutrophils # Man Lymphocytes # (Manual) Monocytes # (Manual) Eosinophils # (Manual) Basophils # (Manual) PT INR APTT ABG pH ABG pO2 ABG HCO3 ABG O2 Saturation ABG Base Excess ABG Hemoglobin Oxyhemoglobin Sodium Potassium Chloride Carbon Dioxide BUN Creatinine Glucose POC Glucose 160 H 130 H 124 H Lactic Acid Calcium Ionized Calcium Phosphorus Magnesium Total Bilirubin AST ALT Alkaline Phosphatase Ammonia Total Creatine Kinase CK-MB (CK-2) CK-MB (CK-2) Rel Index Total Protein Albumin Urine WBC (Auto) Vancomycin Trough Salicylates Acetaminophen Plasma/Serum Alcohol Crossmatch 01/18/20 01/19/20 01/19/20 18:26 00:14 06:24 WBC RBC Hgb Hct MCH RDW Plt Count Lymph % (Auto) [place] % (Auto) [place] # Baso # Seg Neutrophils % Seg Neuts % (Manual) Lymphocytes % (Manual) Monocytes % (Manual) Seg Neutrophils # Seg Neutrophils # Man Lymphocytes # (Manual) Monocytes # (Manual) Eosinophils # (Manual) Basophils # (Manual) PT INR APTT ABG pH ABG pO2 ABG HCO3 ABG O2 Saturation ABG Base Excess ABG Hemoglobin Oxyhemoglobin Sodium Potassium Chloride Carbon Dioxide BUN Creatinine Glucose POC Glucose 119 H 114 H 144 H Lactic Acid Calcium Ionized Calcium Phosphorus Magnesium Total Bilirubin AST ALT Alkaline Phosphatase Ammonia Total Creatine Kinase CK-MB (CK-2) CK-MB (CK-2) Rel Index Total Protein Albumin Urine WBC (Auto) Vancomycin Trough Salicylates Acetaminophen Plasma/Serum Alcohol Crossmatch 01/19/20 01/19/20 01/20/20 12:24 17:50 12:06 WBC RBC Hgb Hct MCH RDW Plt Count Lymph % (Auto) [place] % (Auto) [place] # Baso # Seg Neutrophils % Seg Neuts % (Manual) Lymphocytes % (Manual) Monocytes % (Manual) Seg Neutrophils # Seg Neutrophils # Man Lymphocytes # (Manual) Monocytes # (Manual) Eosinophils # (Manual) Basophils # (Manual) PT INR APTT ABG pH ABG pO2 ABG HCO3 ABG O2 Saturation ABG Base Excess ABG Hemoglobin Oxyhemoglobin Sodium Potassium Chloride Carbon Dioxide BUN Creatinine Glucose POC Glucose 132 H 144 H 135 H Lactic Acid Calcium Ionized Calcium Phosphorus Magnesium Total Bilirubin AST ALT Alkaline Phosphatase Ammonia Total Creatine Kinase CK-MB (CK-2) CK-MB (CK-2) Rel Index Total Protein Albumin Urine WBC (Auto) Vancomycin Trough Salicylates Acetaminophen Plasma/Serum Alcohol Crossmatch 01/21/20 01/21/20 01/21/20 05:46 13:02 23:49 WBC RBC Hgb Hct MCH RDW Plt Count Lymph % (Auto) [place] % (Auto) [place] # Baso # Seg Neutrophils % Seg Neuts % (Manual) Lymphocytes % (Manual) Monocytes % (Manual) Seg Neutrophils # Seg Neutrophils # Man Lymphocytes # (Manual) Monocytes # (Manual) Eosinophils # (Manual) Basophils # (Manual) PT INR APTT ABG pH ABG pO2 ABG HCO3 ABG O2 Saturation ABG Base Excess ABG Hemoglobin Oxyhemoglobin Sodium Potassium Chloride Carbon Dioxide BUN Creatinine Glucose POC Glucose 114 H 136 H 120 H Lactic Acid Calcium Ionized Calcium Phosphorus Magnesium Total Bilirubin AST ALT Alkaline Phosphatase Ammonia Total Creatine Kinase CK-MB (CK-2) CK-MB (CK-2) Rel Index Total Protein Albumin Urine WBC (Auto) Vancomycin Trough Salicylates Acetaminophen Plasma/Serum Alcohol Crossmatch 01/22/20 01/22/20 01/22/20 05:41 11:44 16:31 WBC RBC Hgb Hct MCH RDW Plt Count Lymph % (Auto) [place] % (Auto) [place] # Baso # Seg Neutrophils % Seg Neuts % (Manual) Lymphocytes % (Manual) Monocytes % (Manual) Seg Neutrophils # Seg Neutrophils # Man Lymphocytes # (Manual) Monocytes # (Manual) Eosinophils # (Manual) Basophils # (Manual) PT INR APTT ABG pH ABG pO2 ABG HCO3 ABG O2 Saturation ABG Base Excess ABG Hemoglobin Oxyhemoglobin Sodium Potassium Chloride Carbon Dioxide BUN Creatinine Glucose POC Glucose 124 H 173 H 111 H Lactic Acid Calcium Ionized Calcium Phosphorus Magnesium Total Bilirubin AST ALT Alkaline Phosphatase Ammonia Total Creatine Kinase CK-MB (CK-2) CK-MB (CK-2) Rel Index Total Protein Albumin Urine WBC (Auto) Vancomycin Trough Salicylates Acetaminophen Plasma/Serum Alcohol Crossmatch 01/22/20 01/23/20 01/23/20 23:25 05:15 12:15 WBC RBC Hgb Hct MCH RDW Plt Count Lymph % (Auto) [place] % (Auto) [place] # Baso # Seg Neutrophils % Seg Neuts % (Manual) Lymphocytes % (Manual) Monocytes % (Manual) Seg Neutrophils # Seg Neutrophils # Man Lymphocytes # (Manual) Monocytes # (Manual) Eosinophils # (Manual) Basophils # (Manual) PT INR APTT ABG pH ABG pO2 ABG HCO3 ABG O2 Saturation ABG Base Excess ABG Hemoglobin Oxyhemoglobin Sodium Potassium Chloride Carbon Dioxide BUN Creatinine Glucose POC Glucose 134 H 117 H 129 H Lactic Acid Calcium Ionized Calcium Phosphorus Magnesium Total Bilirubin AST ALT Alkaline Phosphatase Ammonia Total Creatine Kinase CK-MB (CK-2) CK-MB (CK-2) Rel Index Total Protein Albumin Urine WBC (Auto) Vancomycin Trough Salicylates Acetaminophen Plasma/Serum Alcohol Crossmatch 01/23/20 01/23/20 01/23/20 16:58 21:17 23:47 WBC RBC Hgb Hct MCH RDW Plt Count Lymph % (Auto) [place] % (Auto) [place] # Baso # Seg Neutrophils % Seg Neuts % (Manual) Lymphocytes % (Manual) Monocytes % (Manual) Seg Neutrophils # Seg Neutrophils # Man Lymphocytes # (Manual) Monocytes # (Manual) Eosinophils # (Manual) Basophils # (Manual) PT INR APTT ABG pH ABG pO2 ABG HCO3 ABG O2 Saturation ABG Base Excess ABG Hemoglobin Oxyhemoglobin Sodium Potassium Chloride Carbon Dioxide BUN Creatinine Glucose POC Glucose 156 H 185 H 156 H Lactic Acid Calcium Ionized Calcium Phosphorus Magnesium Total Bilirubin AST ALT Alkaline Phosphatase Ammonia Total Creatine Kinase CK-MB (CK-2) CK-MB (CK-2) Rel Index Total Protein Albumin Urine WBC (Auto) Vancomycin Trough Salicylates Acetaminophen Plasma/Serum Alcohol Crossmatch 01/24/20 01/24/20 01/24/20 04:47 04:47 05:59 WBC 17.8 H RBC 3.60 L Hgb Hct MCH RDW 16.2 H Plt Count 688 H Lymph % (Auto) 11.8 L [place] % (Auto) 7.5 H [place] # 1.3 H Baso # Seg Neutrophils % 79.9 H Seg Neuts % (Manual) Lymphocytes % (Manual) Monocytes % (Manual) Seg Neutrophils # 14.2 H Seg Neutrophils # Man Lymphocytes # (Manual) Monocytes # (Manual) Eosinophils # (Manual) Basophils # (Manual) PT INR APTT ABG pH ABG pO2 ABG HCO3 ABG O2 Saturation ABG Base Excess ABG Hemoglobin Oxyhemoglobin Sodium 131 L Potassium Chloride 91.2 L Carbon Dioxide BUN 22 H Creatinine 0.3 L Glucose 123 H POC Glucose 147 H Lactic Acid Calcium 10.9 H Ionized Calcium Phosphorus Magnesium Total Bilirubin AST ALT Alkaline Phosphatase Ammonia Total Creatine Kinase CK-MB (CK-2) CK-MB (CK-2) Rel Index Total Protein Albumin Urine WBC (Auto) Vancomycin Trough Salicylates Acetaminophen Plasma/Serum Alcohol Crossmatch 01/24/20 01/24/20 01/25/20 11:47 16:45 00:18 WBC RBC Hgb Hct MCH RDW Plt Count Lymph % (Auto) [place] % (Auto) [place] # Baso # Seg Neutrophils % Seg Neuts % (Manual) Lymphocytes % (Manual) Monocytes % (Manual) Seg Neutrophils # Seg Neutrophils # Man Lymphocytes # (Manual) Monocytes # (Manual) Eosinophils # (Manual) Basophils # (Manual) PT INR APTT ABG pH ABG pO2 ABG HCO3 ABG O2 Saturation ABG Base Excess ABG Hemoglobin Oxyhemoglobin Sodium Potassium Chloride Carbon Dioxide BUN Creatinine Glucose POC Glucose 114 H 108 H 119 H Lactic Acid Calcium Ionized Calcium Phosphorus Magnesium Total Bilirubin AST ALT Alkaline Phosphatase Ammonia Total Creatine Kinase CK-MB (CK-2) CK-MB (CK-2) Rel Index Total Protein Albumin Urine WBC (Auto) Vancomycin Trough Salicylates Acetaminophen Plasma/Serum Alcohol Crossmatch 01/25/20 01/25/20 01/25/20 07:18 11:58 16:56 WBC RBC Hgb Hct MCH RDW Plt Count Lymph % (Auto) [place] % (Auto) [place] # Baso # Seg Neutrophils % Seg Neuts % (Manual) Lymphocytes % (Manual) Monocytes % (Manual) Seg Neutrophils # Seg Neutrophils # Man Lymphocytes # (Manual) Monocytes # (Manual) Eosinophils # (Manual) Basophils # (Manual) PT INR APTT ABG pH ABG pO2 ABG HCO3 ABG O2 Saturation ABG Base Excess ABG Hemoglobin Oxyhemoglobin Sodium Potassium Chloride Carbon Dioxide BUN Creatinine Glucose POC Glucose 136 H 136 H 147 H Lactic Acid Calcium Ionized Calcium Phosphorus Magnesium Total Bilirubin AST ALT Alkaline Phosphatase Ammonia Total Creatine Kinase CK-MB (CK-2) CK-MB (CK-2) Rel Index Total Protein Albumin Urine WBC (Auto) Vancomycin Trough Salicylates Acetaminophen Plasma/Serum Alcohol Crossmatch 01/26/20 01/26/20 01/26/20 00:29 05:59 05:59 WBC 12.8 H RBC Hgb Hct MCH RDW 16.4 H Plt Count 743 H Lymph % (Auto) [place] % (Auto) [place] # 0.9 H Baso # Seg Neutrophils % 76.2 H Seg Neuts % (Manual) Lymphocytes % (Manual) Monocytes % (Manual) Seg Neutrophils # 9.8 H Seg Neutrophils # Man Lymphocytes # (Manual) Monocytes # (Manual) Eosinophils # (Manual) Basophils # (Manual) PT INR APTT ABG pH ABG pO2 ABG HCO3 ABG O2 Saturation ABG Base Excess ABG Hemoglobin Oxyhemoglobin Sodium 132 L Potassium Chloride 90.9 L Carbon Dioxide BUN 23 H Creatinine 0.4 L Glucose 122 H POC Glucose 107 H Lactic Acid Calcium 11.0 H Ionized Calcium Phosphorus Magnesium Total Bilirubin AST ALT Alkaline Phosphatase Ammonia Total Creatine Kinase CK-MB (CK-2) CK-MB (CK-2) Rel Index Total Protein Albumin Urine WBC (Auto) Vancomycin Trough Salicylates Acetaminophen Plasma/Serum Alcohol Crossmatch 01/26/20 01/26/20 01/26/20 06:27 12:06 16:49 WBC RBC Hgb Hct MCH RDW Plt Count Lymph % (Auto) [place] % (Auto) [place] # Baso # Seg Neutrophils % Seg Neuts % (Manual) Lymphocytes % (Manual) Monocytes % (Manual) Seg Neutrophils # Seg Neutrophils # Man Lymphocytes # (Manual) Monocytes # (Manual) Eosinophils # (Manual) Basophils # (Manual) PT INR APTT ABG pH ABG pO2 ABG HCO3 ABG O2 Saturation ABG Base Excess ABG Hemoglobin Oxyhemoglobin Sodium Potassium Chloride Carbon Dioxide BUN Creatinine Glucose POC Glucose 132 H 132 H 110 H Lactic Acid Calcium Ionized Calcium Phosphorus Magnesium Total Bilirubin AST ALT Alkaline Phosphatase Ammonia Total Creatine Kinase CK-MB (CK-2) CK-MB (CK-2) Rel Index Total Protein Albumin Urine WBC (Auto) Vancomycin Trough Salicylates Acetaminophen Plasma/Serum Alcohol Crossmatch 01/27/20 01/27/20 01/27/20 00:08 11:49 16:24 WBC RBC Hgb Hct MCH RDW Plt Count Lymph % (Auto) [place] % (Auto) [place] # Baso # Seg Neutrophils % Seg Neuts % (Manual) Lymphocytes % (Manual) Monocytes % (Manual) Seg Neutrophils # Seg Neutrophils # Man Lymphocytes # (Manual) Monocytes # (Manual) Eosinophils # (Manual) Basophils # (Manual) PT INR APTT ABG pH ABG pO2 ABG HCO3 ABG O2 Saturation ABG Base Excess ABG Hemoglobin Oxyhemoglobin Sodium Potassium Chloride Carbon Dioxide BUN Creatinine Glucose POC Glucose 107 H 119 H 129 H Lactic Acid Calcium Ionized Calcium Phosphorus Magnesium Total Bilirubin AST ALT Alkaline Phosphatase Ammonia Total Creatine Kinase CK-MB (CK-2) CK-MB (CK-2) Rel Index Total Protein Albumin Urine WBC (Auto) Vancomycin Trough Salicylates Acetaminophen Plasma/Serum Alcohol Crossmatch 01/27/20 01/28/20 01/28/20 18:28 01:00 06:22 WBC RBC Hgb Hct MCH RDW Plt Count Lymph % (Auto) [place] % (Auto) [place] # Baso # Seg Neutrophils % Seg Neuts % (Manual) Lymphocytes % (Manual) Monocytes % (Manual) Seg Neutrophils # Seg Neutrophils # Man Lymphocytes # (Manual) Monocytes # (Manual) Eosinophils # (Manual) Basophils # (Manual) PT INR APTT ABG pH ABG pO2 ABG HCO3 ABG O2 Saturation ABG Base Excess ABG Hemoglobin Oxyhemoglobin Sodium Potassium Chloride Carbon Dioxide BUN Creatinine Glucose POC Glucose 126 H 121 H 114 H Lactic Acid Calcium Ionized Calcium Phosphorus Magnesium Total Bilirubin AST ALT Alkaline Phosphatase Ammonia Total Creatine Kinase CK-MB (CK-2) CK-MB (CK-2) Rel Index Total Protein Albumin Urine WBC (Auto) Vancomycin Trough Salicylates Acetaminophen Plasma/Serum Alcohol Crossmatch 01/28/20 01/28/20 01/29/20 11:47 18:00 00:05 WBC RBC Hgb Hct MCH RDW Plt Count Lymph % (Auto) [place] % (Auto) [place] # Baso # Seg Neutrophils % Seg Neuts % (Manual) Lymphocytes % (Manual) Monocytes % (Manual) Seg Neutrophils # Seg Neutrophils # Man Lymphocytes # (Manual) Monocytes # (Manual) Eosinophils # (Manual) Basophils # (Manual) PT INR APTT ABG pH ABG pO2 ABG HCO3 ABG O2 Saturation ABG Base Excess ABG Hemoglobin Oxyhemoglobin Sodium Potassium Chloride Carbon Dioxide BUN Creatinine Glucose POC Glucose 106 H 117 H 127 H Lactic Acid Calcium Ionized Calcium Phosphorus Magnesium Total Bilirubin AST ALT Alkaline Phosphatase Ammonia Total Creatine Kinase CK-MB (CK-2) CK-MB (CK-2) Rel Index Total Protein Albumin Urine WBC (Auto) Vancomycin Trough Salicylates Acetaminophen Plasma/Serum Alcohol Crossmatch 01/29/20 01/29/20 01/29/20 06:04 11:40 16:38 WBC RBC Hgb Hct MCH RDW Plt Count Lymph % (Auto) [place] % (Auto) [place] # Baso # Seg Neutrophils % Seg Neuts % (Manual) Lymphocytes % (Manual) Monocytes % (Manual) Seg Neutrophils # Seg Neutrophils # Man Lymphocytes # (Manual) Monocytes # (Manual) Eosinophils # (Manual) Basophils # (Manual) PT INR APTT ABG pH ABG pO2 ABG HCO3 ABG O2 Saturation ABG Base Excess ABG Hemoglobin Oxyhemoglobin Sodium Potassium Chloride Carbon Dioxide BUN Creatinine Glucose POC Glucose 147 H 139 H 143 H Lactic Acid Calcium Ionized Calcium Phosphorus Magnesium Total Bilirubin AST ALT Alkaline Phosphatase Ammonia Total Creatine Kinase CK-MB (CK-2) CK-MB (CK-2) Rel Index Total Protein Albumin Urine WBC (Auto) Vancomycin Trough Salicylates Acetaminophen Plasma/Serum Alcohol Crossmatch 01/29/20 01/30/20 01/30/20 23:46 06:43 12:07 WBC RBC Hgb Hct MCH RDW Plt Count Lymph % (Auto) [place] % (Auto) [place] # Baso # Seg Neutrophils % Seg Neuts % (Manual) Lymphocytes % (Manual) Monocytes % (Manual) Seg Neutrophils # Seg Neutrophils # Man Lymphocytes # (Manual) Monocytes # (Manual) Eosinophils # (Manual) Basophils # (Manual) PT INR APTT ABG pH ABG pO2 ABG HCO3 ABG O2 Saturation ABG Base Excess ABG Hemoglobin Oxyhemoglobin Sodium Potassium Chloride Carbon Dioxide BUN Creatinine Glucose POC Glucose 122 H 122 H 134 H Lactic Acid Calcium Ionized Calcium Phosphorus Magnesium Total Bilirubin AST ALT Alkaline Phosphatase Ammonia Total Creatine Kinase CK-MB (CK-2) CK-MB (CK-2) Rel Index Total Protein Albumin Urine WBC (Auto) Vancomycin Trough Salicylates Acetaminophen Plasma/Serum Alcohol Crossmatch 01/30/20 01/31/20 01/31/20 17:59 00:52 05:54 WBC RBC Hgb Hct MCH RDW Plt Count Lymph % (Auto) [place] % (Auto) [place] # Baso # Seg Neutrophils % Seg Neuts % (Manual) Lymphocytes % (Manual) Monocytes % (Manual) Seg Neutrophils # Seg Neutrophils # Man Lymphocytes # (Manual) Monocytes # (Manual) Eosinophils # (Manual) Basophils # (Manual) PT INR APTT ABG pH ABG pO2 ABG HCO3 ABG O2 Saturation ABG Base Excess ABG Hemoglobin Oxyhemoglobin Sodium Potassium Chloride Carbon Dioxide BUN Creatinine Glucose POC Glucose 116 H 127 H 127 H Lactic Acid Calcium Ionized Calcium Phosphorus Magnesium Total Bilirubin AST ALT Alkaline Phosphatase Ammonia Total Creatine Kinase CK-MB (CK-2) CK-MB (CK-2) Rel Index Total Protein Albumin Urine WBC (Auto) Vancomycin Trough Salicylates Acetaminophen Plasma/Serum Alcohol Crossmatch 01/31/20 02/01/20 02/01/20 12:20 00:48 12:21 WBC RBC Hgb Hct MCH RDW Plt Count Lymph % (Auto) [place] % (Auto) [place] # Baso # Seg Neutrophils % Seg Neuts % (Manual) Lymphocytes % (Manual) Monocytes % (Manual) Seg Neutrophils # Seg Neutrophils # Man Lymphocytes # (Manual) Monocytes # (Manual) Eosinophils # (Manual) Basophils # (Manual) PT INR APTT ABG pH ABG pO2 ABG HCO3 ABG O2 Saturation ABG Base Excess ABG Hemoglobin Oxyhemoglobin Sodium Potassium Chloride Carbon Dioxide BUN Creatinine Glucose POC Glucose 126 H 154 H 123 H Lactic Acid Calcium Ionized Calcium Phosphorus Magnesium Total Bilirubin AST ALT Alkaline Phosphatase Ammonia Total Creatine Kinase CK-MB (CK-2) CK-MB (CK-2) Rel Index Total Protein Albumin Urine WBC (Auto) Vancomycin Trough Salicylates Acetaminophen Plasma/Serum Alcohol Crossmatch 02/01/20 02/02/20 02/02/20 23:58 06:08 11:50 WBC RBC Hgb Hct MCH RDW Plt Count Lymph % (Auto) [place] % (Auto) [place] # Baso # Seg Neutrophils % Seg Neuts % (Manual) Lymphocytes % (Manual) Monocytes % (Manual) Seg Neutrophils # Seg Neutrophils # Man Lymphocytes # (Manual) Monocytes # (Manual) Eosinophils # (Manual) Basophils # (Manual) PT INR APTT ABG pH ABG pO2 ABG HCO3 ABG O2 Saturation ABG Base Excess ABG Hemoglobin Oxyhemoglobin Sodium Potassium Chloride Carbon Dioxide BUN Creatinine Glucose POC Glucose 125 H 144 H 131 H Lactic Acid Calcium Ionized Calcium Phosphorus Magnesium Total Bilirubin AST ALT Alkaline Phosphatase Ammonia Total Creatine Kinase CK-MB (CK-2) CK-MB (CK-2) Rel Index Total Protein Albumin Urine WBC (Auto) Vancomycin Trough Salicylates Acetaminophen Plasma/Serum Alcohol Crossmatch 02/02/20 02/03/20 02/03/20 17:53 00:14 05:47 WBC RBC Hgb Hct MCH RDW Plt Count Lymph % (Auto) [place] % (Auto) [place] # Baso # Seg Neutrophils % Seg Neuts % (Manual) Lymphocytes % (Manual) Monocytes % (Manual) Seg Neutrophils # Seg Neutrophils # Man Lymphocytes # (Manual) Monocytes # (Manual) Eosinophils # (Manual) Basophils # (Manual) PT INR APTT ABG pH ABG pO2 ABG HCO3 ABG O2 Saturation ABG Base Excess ABG Hemoglobin Oxyhemoglobin Sodium Potassium Chloride Carbon Dioxide BUN Creatinine Glucose POC Glucose 108 H 122 H 118 H Lactic Acid Calcium Ionized Calcium Phosphorus Magnesium Total Bilirubin AST ALT Alkaline Phosphatase Ammonia Total Creatine Kinase CK-MB (CK-2) CK-MB (CK-2) Rel Index Total Protein Albumin Urine WBC (Auto) Vancomycin Trough Salicylates Acetaminophen Plasma/Serum Alcohol Crossmatch 02/03/20 02/03/20 02/03/20 05:59 05:59 11:49 WBC RBC 3.48 L Hgb Hct 29.9 L MCH RDW 16.2 H Plt Count 707 H Lymph % (Auto) [place] % (Auto) 9.3 H [place] # 0.9 H Baso # Seg Neutrophils % Seg Neuts % (Manual) Lymphocytes % (Manual) Monocytes % (Manual) Seg Neutrophils # Seg Neutrophils # Man Lymphocytes # (Manual) Monocytes # (Manual) Eosinophils # (Manual) Basophils # (Manual) PT INR APTT ABG pH ABG pO2 ABG HCO3 ABG O2 Saturation ABG Base Excess ABG Hemoglobin Oxyhemoglobin Sodium 136 L Potassium Chloride 93.4 L Carbon Dioxide BUN 20 H Creatinine 0.5 L Glucose 101 H POC Glucose 133 H Lactic Acid Calcium 10.8 H Ionized Calcium Phosphorus Magnesium Total Bilirubin AST ALT Alkaline Phosphatase Ammonia Total Creatine Kinase CK-MB (CK-2) CK-MB (CK-2) Rel Index Total Protein Albumin Urine WBC (Auto) Vancomycin Trough Salicylates Acetaminophen Plasma/Serum Alcohol Crossmatch 02/03/20 02/04/20 02/04/20 23:19 05:37 23:56 WBC RBC Hgb Hct MCH RDW Plt Count Lymph % (Auto) [place] % (Auto) [place] # Baso # Seg Neutrophils % Seg Neuts % (Manual) Lymphocytes % (Manual) Monocytes % (Manual) Seg Neutrophils # Seg Neutrophils # Man Lymphocytes # (Manual) Monocytes # (Manual) Eosinophils # (Manual) Basophils # (Manual) PT INR APTT ABG pH ABG pO2 ABG HCO3 ABG O2 Saturation ABG Base Excess ABG Hemoglobin Oxyhemoglobin Sodium Potassium Chloride Carbon Dioxide BUN Creatinine Glucose POC Glucose 135 H 108 H 158 H Lactic Acid Calcium Ionized Calcium Phosphorus Magnesium Total Bilirubin AST ALT Alkaline Phosphatase Ammonia Total Creatine Kinase CK-MB (CK-2) CK-MB (CK-2) Rel Index Total Protein Albumin Urine WBC (Auto) Vancomycin Trough Salicylates Acetaminophen Plasma/Serum Alcohol Crossmatch 02/05/20 02/05/20 02/06/20 05:33 23:24 05:50 WBC RBC Hgb Hct MCH RDW Plt Count Lymph % (Auto) [place] % (Auto) [place] # Baso # Seg Neutrophils % Seg Neuts % (Manual) Lymphocytes % (Manual) Monocytes % (Manual) Seg Neutrophils # Seg Neutrophils # Man Lymphocytes # (Manual) Monocytes # (Manual) Eosinophils # (Manual) Basophils # (Manual) PT INR APTT ABG pH ABG pO2 ABG HCO3 ABG O2 Saturation ABG Base Excess ABG Hemoglobin Oxyhemoglobin Sodium Potassium Chloride Carbon Dioxide BUN Creatinine Glucose POC Glucose 152 H 158 H 110 H Lactic Acid Calcium Ionized Calcium Phosphorus Magnesium Total Bilirubin AST ALT Alkaline Phosphatase Ammonia Total Creatine Kinase CK-MB (CK-2) CK-MB (CK-2) Rel Index Total Protein Albumin Urine WBC (Auto) Vancomycin Trough Salicylates Acetaminophen Plasma/Serum Alcohol Crossmatch 02/06/20 02/07/20 02/07/20 16:03 00:13 05:27 WBC RBC Hgb Hct MCH RDW Plt Count Lymph % (Auto) [place] % (Auto) [place] # Baso # Seg Neutrophils % Seg Neuts % (Manual) Lymphocytes % (Manual) Monocytes % (Manual) Seg Neutrophils # Seg Neutrophils # Man Lymphocytes # (Manual) Monocytes # (Manual) Eosinophils # (Manual) Basophils # (Manual) PT INR APTT ABG pH ABG pO2 ABG HCO3 ABG O2 Saturation ABG Base Excess ABG Hemoglobin Oxyhemoglobin Sodium Potassium Chloride Carbon Dioxide BUN Creatinine Glucose POC Glucose 130 H 115 H 115 H Lactic Acid Calcium Ionized Calcium Phosphorus Magnesium Total Bilirubin AST ALT Alkaline Phosphatase Ammonia Total Creatine Kinase CK-MB (CK-2) CK-MB (CK-2) Rel Index Total Protein Albumin Urine WBC (Auto) Vancomycin Trough Salicylates Acetaminophen Plasma/Serum Alcohol Crossmatch 02/07/20 02/07/20 02/08/20 11:42 17:23 00:37 WBC RBC Hgb Hct MCH RDW Plt Count Lymph % (Auto) [place] % (Auto) [place] # Baso # Seg Neutrophils % Seg Neuts % (Manual) Lymphocytes % (Manual) Monocytes % (Manual) Seg Neutrophils # Seg Neutrophils # Man Lymphocytes # (Manual) Monocytes # (Manual) Eosinophils # (Manual) Basophils # (Manual) PT INR APTT ABG pH ABG pO2 ABG HCO3 ABG O2 Saturation ABG Base Excess ABG Hemoglobin Oxyhemoglobin Sodium Potassium Chloride Carbon Dioxide BUN Creatinine Glucose POC Glucose 113 H 114 H 136 H Lactic Acid Calcium Ionized Calcium Phosphorus Magnesium Total Bilirubin AST ALT Alkaline Phosphatase Ammonia Total Creatine Kinase CK-MB (CK-2) CK-MB (CK-2) Rel Index Total Protein Albumin Urine WBC (Auto) Vancomycin Trough Salicylates Acetaminophen Plasma/Serum Alcohol Crossmatch 02/08/20 02/08/20 02/08/20 08:52 11:42 17:02 WBC RBC Hgb Hct MCH RDW Plt Count Lymph % (Auto) [place] % (Auto) [place] # Baso # Seg Neutrophils % Seg Neuts % (Manual) Lymphocytes % (Manual) Monocytes % (Manual) Seg Neutrophils # Seg Neutrophils # Man Lymphocytes # (Manual) Monocytes # (Manual) Eosinophils # (Manual) Basophils # (Manual) PT INR APTT ABG pH ABG pO2 ABG HCO3 ABG O2 Saturation ABG Base Excess ABG Hemoglobin Oxyhemoglobin Sodium 136 L Potassium Chloride 95.7 L Carbon Dioxide BUN 21 H Creatinine 0.4 L Glucose POC Glucose 128 H 145 H Lactic Acid Calcium 10.4 H Ionized Calcium Phosphorus Magnesium Total Bilirubin AST ALT Alkaline Phosphatase Ammonia Total Creatine Kinase CK-MB (CK-2) CK-MB (CK-2) Rel Index Total Protein Albumin Urine WBC (Auto) Vancomycin Trough Salicylates Acetaminophen Plasma/Serum Alcohol Crossmatch 02/09/20 02/09/20 02/09/20 01:05 11:52 16:19 WBC RBC Hgb Hct MCH RDW Plt Count Lymph % (Auto) [place] % (Auto) [place] # Baso # Seg Neutrophils % Seg Neuts % (Manual) Lymphocytes % (Manual) Monocytes % (Manual) Seg Neutrophils # Seg Neutrophils # Man Lymphocytes # (Manual) Monocytes # (Manual) Eosinophils # (Manual) Basophils # (Manual) PT INR APTT ABG pH ABG pO2 ABG HCO3 ABG O2 Saturation ABG Base Excess ABG Hemoglobin Oxyhemoglobin Sodium Potassium Chloride Carbon Dioxide BUN Creatinine Glucose POC Glucose 117 H 141 H 113 H Lactic Acid Calcium Ionized Calcium Phosphorus Magnesium Total Bilirubin AST ALT Alkaline Phosphatase Ammonia Total Creatine Kinase CK-MB (CK-2) CK-MB (CK-2) Rel Index Total Protein Albumin Urine WBC (Auto) Vancomycin Trough Salicylates Acetaminophen Plasma/Serum Alcohol Crossmatch 02/10/20 02/10/20 02/10/20 05:25 12:50 17:08 WBC RBC Hgb Hct MCH RDW Plt Count Lymph % (Auto) [place] % (Auto) [place] # Baso # Seg Neutrophils % Seg Neuts % (Manual) Lymphocytes % (Manual) Monocytes % (Manual) Seg Neutrophils # Seg Neutrophils # Man Lymphocytes # (Manual) Monocytes # (Manual) Eosinophils # (Manual) Basophils # (Manual) PT INR APTT ABG pH ABG pO2 ABG HCO3 ABG O2 Saturation ABG Base Excess ABG Hemoglobin Oxyhemoglobin Sodium Potassium Chloride Carbon Dioxide BUN Creatinine Glucose POC Glucose 136 H 127 H 111 H Lactic Acid Calcium Ionized Calcium Phosphorus Magnesium Total Bilirubin AST ALT Alkaline Phosphatase Ammonia Total Creatine Kinase CK-MB (CK-2) CK-MB (CK-2) Rel Index Total Protein Albumin Urine WBC (Auto) Vancomycin Trough Salicylates Acetaminophen Plasma/Serum Alcohol Crossmatch 02/10/20 02/11/20 02/11/20 23:55 06:11 12:07 WBC RBC Hgb Hct MCH RDW Plt Count Lymph % (Auto) [place] % (Auto) [place] # Baso # Seg Neutrophils % Seg Neuts % (Manual) Lymphocytes % (Manual) Monocytes % (Manual) Seg Neutrophils # Seg Neutrophils # Man Lymphocytes # (Manual) Monocytes # (Manual) Eosinophils # (Manual) Basophils # (Manual) PT INR APTT ABG pH ABG pO2 ABG HCO3 ABG O2 Saturation ABG Base Excess ABG Hemoglobin Oxyhemoglobin Sodium Potassium Chloride Carbon Dioxide BUN Creatinine Glucose POC Glucose 129 H 128 H 141 H Lactic Acid Calcium Ionized Calcium Phosphorus Magnesium Total Bilirubin AST ALT Alkaline Phosphatase Ammonia Total Creatine Kinase CK-MB (CK-2) CK-MB (CK-2) Rel Index Total Protein Albumin Urine WBC (Auto) Vancomycin Trough Salicylates Acetaminophen Plasma/Serum Alcohol Crossmatch 02/11/20 02/12/20 02/13/20 18:22 02:39 06:45 WBC RBC Hgb Hct MCH RDW Plt Count Lymph % (Auto) [place] % (Auto) [place] # Baso # Seg Neutrophils % Seg Neuts % (Manual) Lymphocytes % (Manual) Monocytes % (Manual) Seg Neutrophils # Seg Neutrophils # Man Lymphocytes # (Manual) Monocytes # (Manual) Eosinophils # (Manual) Basophils # (Manual) PT INR APTT ABG pH ABG pO2 ABG HCO3 ABG O2 Saturation ABG Base Excess ABG Hemoglobin Oxyhemoglobin Sodium Potassium Chloride Carbon Dioxide BUN Creatinine Glucose POC Glucose 118 H 107 H 124 H Lactic Acid Calcium Ionized Calcium Phosphorus Magnesium Total Bilirubin AST ALT Alkaline Phosphatase Ammonia Total Creatine Kinase CK-MB (CK-2) CK-MB (CK-2) Rel Index Total Protein Albumin Urine WBC (Auto) Vancomycin Trough Salicylates Acetaminophen Plasma/Serum Alcohol Crossmatch 02/13/20 02/13/20 02/14/20 12:26 18:19 00:21 WBC RBC Hgb Hct MCH RDW Plt Count Lymph % (Auto) [place] % (Auto) [place] # Baso # Seg Neutrophils % Seg Neuts % (Manual) Lymphocytes % (Manual) Monocytes % (Manual) Seg Neutrophils # Seg Neutrophils # Man Lymphocytes # (Manual) Monocytes # (Manual) Eosinophils # (Manual) Basophils # (Manual) PT INR APTT ABG pH ABG pO2 ABG HCO3 ABG O2 Saturation ABG Base Excess ABG Hemoglobin Oxyhemoglobin Sodium Potassium Chloride Carbon Dioxide BUN Creatinine Glucose POC Glucose 124 H 118 H 130 H Lactic Acid Calcium Ionized Calcium Phosphorus Magnesium Total Bilirubin AST ALT Alkaline Phosphatase Ammonia Total Creatine Kinase CK-MB (CK-2) CK-MB (CK-2) Rel Index Total Protein Albumin Urine WBC (Auto) Vancomycin Trough Salicylates Acetaminophen Plasma/Serum Alcohol Crossmatch 02/14/20 02/14/20 02/16/20 11:19 16:16 00:58 WBC RBC Hgb Hct MCH RDW Plt Count Lymph % (Auto) [place] % (Auto) [place] # Baso # Seg Neutrophils % Seg Neuts % (Manual) Lymphocytes % (Manual) Monocytes % (Manual) Seg Neutrophils # Seg Neutrophils # Man Lymphocytes # (Manual) Monocytes # (Manual) Eosinophils # (Manual) Basophils # (Manual) PT INR APTT ABG pH ABG pO2 ABG HCO3 ABG O2 Saturation ABG Base Excess ABG Hemoglobin Oxyhemoglobin Sodium Potassium Chloride Carbon Dioxide BUN Creatinine Glucose POC Glucose 135 H 119 H 121 H Lactic Acid Calcium Ionized Calcium Phosphorus Magnesium Total Bilirubin AST ALT Alkaline Phosphatase Ammonia Total Creatine Kinase CK-MB (CK-2) CK-MB (CK-2) Rel Index Total Protein Albumin Urine WBC (Auto) Vancomycin Trough Salicylates Acetaminophen Plasma/Serum Alcohol Crossmatch 02/16/20 02/16/20 02/16/20 12:12 18:22 23:51 WBC RBC Hgb Hct MCH RDW Plt Count Lymph % (Auto) [place] % (Auto) [place] # Baso # Seg Neutrophils % Seg Neuts % (Manual) Lymphocytes % (Manual) Monocytes % (Manual) Seg Neutrophils # Seg Neutrophils # Man Lymphocytes # (Manual) Monocytes # (Manual) Eosinophils # (Manual) Basophils # (Manual) PT INR APTT ABG pH ABG pO2 ABG HCO3 ABG O2 Saturation ABG Base Excess ABG Hemoglobin Oxyhemoglobin Sodium Potassium Chloride Carbon Dioxide BUN Creatinine Glucose POC Glucose 107 H 106 H 128 H Lactic Acid Calcium Ionized Calcium Phosphorus Magnesium Total Bilirubin AST ALT Alkaline Phosphatase Ammonia Total Creatine Kinase CK-MB (CK-2) CK-MB (CK-2) Rel Index Total Protein Albumin Urine WBC (Auto) Vancomycin Trough Salicylates Acetaminophen Plasma/Serum Alcohol Crossmatch 02/17/20 02/17/20 02/17/20 05:50 07:57 07:57 WBC 12.6 H RBC 3.52 L Hgb Hct MCH RDW 15.3 H Plt Count 643 H Lymph % (Auto) [place] % (Auto) 8.0 H [place] # 1.0 H Baso # Seg Neutrophils % Seg Neuts % (Manual) Lymphocytes % (Manual) Monocytes % (Manual) Seg Neutrophils # 8.5 H Seg Neutrophils # Man Lymphocytes # (Manual) Monocytes # (Manual) Eosinophils # (Manual) Basophils # (Manual) PT INR APTT ABG pH ABG pO2 ABG HCO3 ABG O2 Saturation ABG Base Excess ABG Hemoglobin Oxyhemoglobin Sodium Potassium Chloride 96.9 L Carbon Dioxide BUN 21 H Creatinine 0.4 L Glucose 113 H POC Glucose 116 H Lactic Acid Calcium 10.5 H Ionized Calcium Phosphorus Magnesium Total Bilirubin AST ALT Alkaline Phosphatase Ammonia Total Creatine Kinase CK-MB (CK-2) CK-MB (CK-2) Rel Index Total Protein Albumin Urine WBC (Auto) Vancomycin Trough Salicylates Acetaminophen Plasma/Serum Alcohol Crossmatch 02/17/20 02/17/20 02/18/20 12:05 18:16 00:13 WBC RBC Hgb Hct MCH RDW Plt Count Lymph % (Auto) [place] % (Auto) [place] # Baso # Seg Neutrophils % Seg Neuts % (Manual) Lymphocytes % (Manual) Monocytes % (Manual) Seg Neutrophils # Seg Neutrophils # Man Lymphocytes # (Manual) Monocytes # (Manual) Eosinophils # (Manual) Basophils # (Manual) PT INR APTT ABG pH ABG pO2 ABG HCO3 ABG O2 Saturation ABG Base Excess ABG Hemoglobin Oxyhemoglobin Sodium Potassium Chloride Carbon Dioxide BUN Creatinine Glucose POC Glucose 139 H 127 H 144 H Lactic Acid Calcium Ionized Calcium Phosphorus Magnesium Total Bilirubin AST ALT Alkaline Phosphatase Ammonia Total Creatine Kinase CK-MB (CK-2) CK-MB (CK-2) Rel Index Total Protein Albumin Urine WBC (Auto) Vancomycin Trough Salicylates Acetaminophen Plasma/Serum Alcohol Crossmatch 02/18/20 02/18/20 02/19/20 17:41 23:28 05:17 WBC RBC Hgb Hct MCH RDW Plt Count Lymph % (Auto) [place] % (Auto) [place] # Baso # Seg Neutrophils % Seg Neuts % (Manual) Lymphocytes % (Manual) Monocytes % (Manual) Seg Neutrophils # Seg Neutrophils # Man Lymphocytes # (Manual) Monocytes # (Manual) Eosinophils # (Manual) Basophils # (Manual) PT INR APTT ABG pH ABG pO2 ABG HCO3 ABG O2 Saturation ABG Base Excess ABG Hemoglobin Oxyhemoglobin Sodium Potassium Chloride Carbon Dioxide BUN Creatinine Glucose POC Glucose 118 H 166 H 116 H Lactic Acid Calcium Ionized Calcium Phosphorus Magnesium Total Bilirubin AST ALT Alkaline Phosphatase Ammonia Total Creatine Kinase CK-MB (CK-2) CK-MB (CK-2) Rel Index Total Protein Albumin Urine WBC (Auto) Vancomycin Trough Salicylates Acetaminophen Plasma/Serum Alcohol Crossmatch 02/19/20 02/19/20 02/20/20 12:33 17:02 00:12 WBC RBC Hgb Hct MCH RDW Plt Count Lymph % (Auto) [place] % (Auto) [place] # Baso # Seg Neutrophils % Seg Neuts % (Manual) Lymphocytes % (Manual) Monocytes % (Manual) Seg Neutrophils # Seg Neutrophils # Man Lymphocytes # (Manual) Monocytes # (Manual) Eosinophils # (Manual) Basophils # (Manual) PT INR APTT ABG pH ABG pO2 ABG HCO3 ABG O2 Saturation ABG Base Excess ABG Hemoglobin Oxyhemoglobin Sodium Potassium Chloride Carbon Dioxide BUN Creatinine Glucose POC Glucose 115 H 108 H 153 H Lactic Acid Calcium Ionized Calcium Phosphorus Magnesium Total Bilirubin AST ALT Alkaline Phosphatase Ammonia Total Creatine Kinase CK-MB (CK-2) CK-MB (CK-2) Rel Index Total Protein Albumin Urine WBC (Auto) Vancomycin Trough Salicylates Acetaminophen Plasma/Serum Alcohol Crossmatch 02/20/20 02/20/20 02/21/20 12:00 23:13 05:07 WBC RBC Hgb Hct MCH RDW Plt Count Lymph % (Auto) [place] % (Auto) [place] # Baso # Seg Neutrophils % Seg Neuts % (Manual) Lymphocytes % (Manual) Monocytes % (Manual) Seg Neutrophils # Seg Neutrophils # Man Lymphocytes # (Manual) Monocytes # (Manual) Eosinophils # (Manual) Basophils # (Manual) PT INR APTT ABG pH ABG pO2 ABG HCO3 ABG O2 Saturation ABG Base Excess ABG Hemoglobin Oxyhemoglobin Sodium Potassium Chloride Carbon Dioxide BUN Creatinine Glucose POC Glucose 171 H 129 H 116 H Lactic Acid Calcium Ionized Calcium Phosphorus Magnesium Total Bilirubin AST ALT Alkaline Phosphatase Ammonia Total Creatine Kinase CK-MB (CK-2) CK-MB (CK-2) Rel Index Total Protein Albumin Urine WBC (Auto) Vancomycin Trough Salicylates Acetaminophen Plasma/Serum Alcohol Crossmatch 02/21/20 02/22/20 02/22/20 12:15 00:42 06:30 WBC RBC Hgb Hct MCH RDW Plt Count Lymph % (Auto) [place] % (Auto) [place] # Baso # Seg Neutrophils % Seg Neuts % (Manual) Lymphocytes % (Manual) Monocytes % (Manual) Seg Neutrophils # Seg Neutrophils # Man Lymphocytes # (Manual) Monocytes # (Manual) Eosinophils # (Manual) Basophils # (Manual) PT INR APTT ABG pH ABG pO2 ABG HCO3 ABG O2 Saturation ABG Base Excess ABG Hemoglobin Oxyhemoglobin Sodium Potassium Chloride Carbon Dioxide BUN Creatinine Glucose POC Glucose 124 H 142 H 117 H Lactic Acid Calcium Ionized Calcium Phosphorus Magnesium Total Bilirubin AST ALT Alkaline Phosphatase Ammonia Total Creatine Kinase CK-MB (CK-2) CK-MB (CK-2) Rel Index Total Protein Albumin Urine WBC (Auto) Vancomycin Trough Salicylates Acetaminophen Plasma/Serum Alcohol Crossmatch 02/22/20 02/22/20 12:20 17:55 WBC RBC Hgb Hct MCH RDW Plt Count Lymph % (Auto) [place] % (Auto) [place] # Baso # Seg Neutrophils % Seg Neuts % (Manual) Lymphocytes % (Manual) Monocytes % (Manual) Seg Neutrophils # Seg Neutrophils # Man Lymphocytes # (Manual) Monocytes # (Manual) Eosinophils # (Manual) Basophils # (Manual) PT INR APTT ABG pH ABG pO2 ABG HCO3 ABG O2 Saturation ABG Base Excess ABG Hemoglobin Oxyhemoglobin Sodium Potassium Chloride Carbon Dioxide BUN Creatinine Glucose POC Glucose 121 H 157 H Lactic Acid Calcium Ionized Calcium Phosphorus Magnesium Total Bilirubin AST ALT Alkaline Phosphatase Ammonia Total Creatine Kinase CK-MB (CK-2) CK-MB (CK-2) Rel Index Total Protein Albumin Urine WBC (Auto) Vancomycin Trough Salicylates Acetaminophen Plasma/Serum Alcohol Crossmatch Allied health notes reviewed: RT
--- NOTE | 2020-02-23 12:00 | Progress Note ---
Assessment and Plan Assessment and plan: 02/17: Patient pending placement, Following extubation, the patient has remained with AMS, on restraints, no new fever but tachycardia, still requiring aggressive pulmonary toilet. 02/19; Pseudomonas sputum cultures, colonization/tracheostomy tube No treatment needed 02/21/2020; clinically no change, continue current management Awaiting placement 02/22/20 ; patient is slightly restless and agitated Will try Ativan as needed, awaiting placement 02/23/2020; sinus tachycardia, mild agitation Patient started on Ativan as needed, I will add low-dose of metoprolol Monitor closely --Anoxic brain injury: suspected CT head: No acute abnormality. EEG ordered showed Generalized slowing. No seizures or epileptiform activity. Patient now opening her eyes, can speak and able to follow minor command by nodding head --Acute Respiratory failure with hypoxia s/p Tracheostomy --Positive sputum cultures; colonization tracheostomy No need to treat --Status post cardiac arrest s/p intubation, s/p trach and PEG on 12/12 with mechanical ventilation, now on T-piece CTA was done and negative for PE, Echo quality is poor, showed diastolic dysfunction continue weaning as tolerated --Oropharyngeal dysphagia s/p PEG --Persistent Tachycardia --BHAVANA / vasomotor nephropathy; resolved --Anemia, microcytic Status post 3 units PRBC transfusion, H&H low stable --Acute metabolic encephalopathy/toxic encephalopathy multifactorial, supportive care --Hyperammonemia -resolved --Metabolic Acidosis Alcohol ketoacidosis vs hypoprofusion Continue to monitor --Acute cystitis --ELevated LFTs, stable now due to ischemic hepatitis. --Leucocytosis with sepsis Source MRSA bacteremia and MSSA pneumonia. UA showed pyuria. RUQ US showed no ascites. Repeat TTE negative for vegetation. Completed 7 days of Ceftriaxone on 11/29/2019. Treated with Abx vancomycin 1 gm IV q 12 hour total 2 week till 12/30/2019 Resolved --MSSA pneumonia: Status post vancomycin till 12/30/2019 --ALcohol USe Disorder given ongoing Alcohol use almost daily, s/p IV Thiamine monitor --Severe hypokalemia -Repleted --Seizure disorder: treat with Keppra --H. Influenzae, tracheobronchitis, treated with abx --Moderate to severe fecal impaction - will add stool softner --Anxiety disorder: Psych consulted --DNR CODE STATUS Disposition: prognosis guarded. PT recommended subacute rehab, discharge pending on placement. negative for COVID 19 Disposition ;awaiting Placement to SNF History Interval history: Patient seen and examined at the bedside Patient's chart and medications reviewed Patient is slightly agitated Patient is confused Restraint for safety Contact isolation Hospitalist Physical - Constitutional Vitals: Temp Pulse Resp BP Pulse Ox 97.5 F L 123 H 20 136/106 100 02/23/20 07:21 02/23/20 09:16 02/23/20 09:16 02/23/20 07:21 02/23/20 09:33 General appearance: Present: mild distress, cachectic, disheveled, other (Agitated) - EENT Eyes: Present: PERRL, EOM intact - Neck Neck: Present: supple, other (Tracheostomy) - Respiratory Respiratory effort: normal Respiratory: bilateral: diminished, rhonchi, negative: rales, wheezing - Cardiovascular Rhythm: regular Heart Sounds: Present: S1 & S2 - Extremities Extremities: no ischemia, No edema - Abdominal General gastrointestinal: soft, non-tender, non-distended, normal bowel sounds - Integumentary Integumentary: Present: clear, warm - Psychiatric Psychiatric: agitated, other (Confused) - Neurologic Neurologic: other (Residual weakness) HEART Score - HEART Score Troponin: Troponin T < 0.010 ng/mL (0.00-0.029) 11/22/19 23:27 Results - Labs CBC & Chem 7: 02/17/20 07:57 02/17/20 07:57 Labs: Laboratory Last Values WBC 12.6 K/mm3 (4.5-11.0) H 02/17/20 07:57 RBC 3.52 M/mm3 (3.65-5.03) L 02/17/20 07:57 Hgb 10.2 gm/dl (10.1-14.3) 02/17/20 07:57 Hct 30.8 % (30.3-42.9) 02/17/20 07:57 MCV 88 fl (79-97) 02/17/20 07:57 MCH 29 pg (28-32) 02/17/20 07:57 MCHC 33 % (30-34) 02/17/20 07:57 RDW 15.3 % (13.2-15.2) H 02/17/20 07:57 Plt Count 643 K/mm3 (140-440) H 02/17/20 07:57 Lymph % (Auto) 21.3 % (13.4-35.0) 02/17/20 07:57 Antelope % (Auto) 8.0 % (0.0-7.3) H 02/17/20 07:57 Eos % (Auto) 2.5 % (0.0-4.3) 02/17/20 07:57 Baso % (Auto) 0.5 % (0.0-1.8) 02/17/20 07:57 Lymph # 2.7 K/mm3 (1.2-5.4) 02/17/20 07:57 Antelope # 1.0 K/mm3 (0.0-0.8) H 02/17/20 07:57 Eos # 0.3 K/mm3 (0.0-0.4) 02/17/20 07:57 Baso # 0.1 K/mm3 (0.0-0.1) 02/17/20 07:57 Add Manual Diff Complete 12/25/19 03:47 Total Counted 200 12/25/19 03:47 Seg Neutrophils % 67.7 % (40.0-70.0) 02/17/20 07:57 Seg Neuts % (Manual) 97.5 % (40.0-70.0) H 12/25/19 03:47 Band Neutrophils % 0 % 12/25/19 03:47 Lymphocytes % (Manual) 1.0 % (13.4-35.0) L 12/25/19 03:47 Reactive Lymphs % (Man) 0 % 12/25/19 03:47 Monocytes % (Manual) 1.5 % (0.0-7.3) 12/25/19 03:47 Eosinophils % (Manual) 0 % (0.0-4.3) 12/25/19 03:47 Basophils % (Manual) 0 % (0.0-1.8) 12/25/19 03:47 Metamyelocytes % 0 % 12/25/19 03:47 Myelocytes % 0 % 12/25/19 03:47 Promyelocytes % 0 % 12/25/19 03:47 Blast Cells % 0 % 12/25/19 03:47 Nucleated RBC % Not Reportable 12/25/19 03:47 Seg Neutrophils # 8.5 K/mm3 (1.8-7.7) H 02/17/20 07:57 Seg Neutrophils # Man 35.3 K/mm3 (1.8-7.7) H 12/25/19 03:47 Band Neutrophils # 0.0 K/mm3 12/25/19 03:47 Lymphocytes # (Manual) 0.4 K/mm3 (1.2-5.4) L 12/25/19 03:47 Abs React Lymphs (Man) 0.0 K/mm3 12/25/19 03:47 Monocytes # (Manual) 0.5 K/mm3 (0.0-0.8) 12/25/19 03:47 Eosinophils # (Manual) 0.0 K/mm3 (0.0-0.4) 12/25/19 03:47 Basophils # (Manual) 0.0 K/mm3 (0.0-0.1) 12/25/19 03:47 Metamyelocytes # 0.0 K/mm3 12/25/19 03:47 Myelocytes # 0.0 K/mm3 12/25/19 03:47 Promyelocytes # 0.0 K/mm3 12/25/19 03:47 Blast Cells # 0.0 K/mm3 12/25/19 03:47 Pathologist Review 12/13/19 07:48 WBC Morphology Not Reportable 12/25/19 03:47 Hypersegmented Neuts Not Reportable 12/25/19 03:47 Hyposegmented Neuts Not Reportable 12/25/19 03:47 Hypogranular Neuts Not Reportable 12/25/19 03:47 Smudge Cells Not Reportable 12/25/19 03:47 Toxic Granulation Not Reportable 12/25/19 03:47 Toxic Vacuolation Not Reportable 12/25/19 03:47 Dohle Bodies Not Reportable 12/25/19 03:47 Pelger-Huet Anomaly Not Reportable 12/25/19 03:47 Dominique Rods Not Reportable 12/25/19 03:47 Platelet Estimate Consistent w auto 12/25/19 03:47 Clumped Platelets Not Reportable 12/25/19 03:47 Plt Clumps, EDTA Not Reportable 12/25/19 03:47 Large Platelets Not Reportable 12/25/19 03:47 Giant Platelets Not Reportable 12/25/19 03:47 Platelet Satelliting Not Reportable 12/25/19 03:47 Plt Morphology Comment Not Reportable 12/25/19 03:47 RBC Morphology Not Reportable 12/25/19 03:47 Dimorphic RBCs Not Reportable 12/25/19 03:47 Polychromasia Not Reportable 12/25/19 03:47 Hypochromasia Not Reportable 12/25/19 03:47 Poikilocytosis Not Reportable 12/25/19 03:47 Anisocytosis 1+ 12/25/19 03:47 Microcytosis Not Reportable 12/25/19 03:47 Macrocytosis Not Reportable 12/25/19 03:47 Spherocytes Not Reportable 12/25/19 03:47 Pappenheimer Bodies Not Reportable 12/25/19 03:47 Sickle Cells Not Reportable 12/25/19 03:47 Target Cells Not Reportable 12/25/19 03:47 Tear Drop Cells Not Reportable 12/25/19 03:47 Ovalocytes Not Reportable 12/25/19 03:47 Helmet Cells Not Reportable 12/25/19 03:47 [place] Bodies Not Reportable 12/25/19 03:47 Friant Rings Not Reportable 12/25/19 03:47 Jamshid Cells Not Reportable 12/25/19 03:47 Bite Cells Not Reportable 12/25/19 03:47 Crenated Cell Not Reportable 12/25/19 03:47 Elliptocytes Not Reportable 12/25/19 03:47 Acanthocytes (Spur) Not Reportable 12/25/19 03:47 Rouleaux Not Reportable 12/25/19 03:47 Hemoglobin C Crystals Not Reportable 12/25/19 03:47 Schistocytes Not Reportable 12/25/19 03:47 Malaria parasites Not Reportable 12/25/19 03:47 Gregg Bodies Not Reportable 12/25/19 03:47 Hem Pathologist Commnt No 12/25/19 03:47 PT 17.0 Sec. (12.2-14.9) H 11/23/19 03:47 INR 1.36 (0.87-1.13) H 11/23/19 03:47 APTT 128.2 Sec. (24.2-36.6) H* 11/23/19 03:47 Heparin Anti-Xa Level 0.31 U.I./ml (0.3-0.7) 11/23/19 09:03 ABG pH 7.429 pH Units (7.350-7.450) 01/09/20 08:51 ABG pCO2 39.1 mm Hg 01/09/20 08:51 ABG pO2 94.3 mm Hg (80.0-90.0) H 01/09/20 08:51 ABG HCO3 25.3 mmol/L (20.0-26.0) 01/09/20 08:51 ABG O2 Saturation 97.4 % (95.0-99.0) 01/09/20 08:51 ABG O2 Content 12.9 (0.0-44) 01/09/20 08:51 ABG Base Excess 1.0 mmol/L (-2.0-3.0) 01/09/20 08:51 ABG Hemoglobin 9.5 gm/dl (12.0-16.0) L 01/09/20 08:51 ABG Carboxyhemoglobin 1.3 % (0.0-5.0) 01/09/20 08:51 ABG Methemoglobin 0.4 % (0.0-1.5) 01/09/20 08:51 Oxyhemoglobin 95.7 % (95.0-99.0) 01/09/20 08:51 FiO2 35 % 01/09/20 08:51 Sodium 137 mmol/L (137-145) 02/17/20 07:57 Potassium 4.7 mmol/L (3.6-5.0) 02/17/20 07:57 Chloride 96.9 mmol/L (98-107) L 02/17/20 07:57 Carbon Dioxide 25 mmol/L (22-30) 02/17/20 07:57 Anion Gap 20 mmol/L 02/17/20 07:57 BUN 21 mg/dL (7-17) H 02/17/20 07:57 Creatinine 0.4 mg/dL (0.7-1.2) L 02/17/20 07:57 Estimated GFR > 60 ml/min 02/17/20 07:57 BUN/Creatinine Ratio 53 % 02/17/20 07:57 Glucose 113 mg/dL (65-100) H 02/17/20 07:57 POC Glucose 157 (70-105) H 02/22/20 17:55 Lactic Acid 1.80 mmol/L (0.7-2.0) 11/25/19 05:05 Calcium 10.5 mg/dL (8.4-10.2) H 02/17/20 07:57 Ionized Calcium 4.5 mg/dL (4.8-5.6) L 11/23/19 06:32 Phosphorus 4.20 mg/dL (2.5-4.5) D 11/28/19 08:59 Magnesium 2.30 mg/dL (1.7-2.3) 11/29/19 13:41 Total Bilirubin 0.40 mg/dL (0.1-1.2) 12/13/19 07:48 AST 27 units/L (5-40) 12/13/19 07:48 ALT 26 units/L (7-56) 12/13/19 07:48 Alkaline Phosphatase 316 units/L (35-129) H 12/13/19 07:48 Ammonia 42.0 umol/L (25-60) 11/29/19 13:41 Total Creatine Kinase 139 units/L (30-135) H 11/22/19 23:27 CK-MB (CK-2) 8.3 ng/mL (0.0-4.0) H 11/22/19 23:27 CK-MB (CK-2) Rel Index 5.9 (0-4) H 11/22/19 23:27 Troponin T < 0.010 ng/mL (0.00-0.029) 11/22/19 23:27 Total Protein 6.8 g/dL (6.3-8.2) 12/13/19 07:48 Albumin 2.4 g/dL (3.9-5) L 12/13/19 07:48 Albumin/Globulin Ratio 0.5 % 12/13/19 07:48 Lipase 18 units/L (13-60) 11/23/19 00:34 Procalcitonin 1.09 ng/mL (<0.15) 11/23/19 04:53 TSH 1.010 mlU/mL (0.270-4.200) 02/12/20 07:36 Free T4 1.08 ng/dL (0.76-1.46) 02/12/20 07:36 Urine Color Yellow (Yellow) 12/16/19 Unknown Urine Turbidity Slightly-cloudy (Clear) 12/16/19 Unknown Urine pH 5.0 (5.0-7.0) 12/16/19 Unknown Ur Specific Tiro 1.018 (1.003-1.030) 12/16/19 Unknown Urine Protein 30 mg/dl mg/dL (Negative) 12/16/19 Unknown Urine Glucose (UA) Neg mg/dL (Negative) 12/16/19 Unknown Urine Ketones Neg mg/dL (Negative) 12/16/19 Unknown Urine Blood Sm (Negative) 12/16/19 Unknown Urine Nitrite Neg (Negative) 12/16/19 Unknown Urine Bilirubin Neg (Negative) 12/16/19 Unknown Urine Urobilinogen < 2.0 mg/dL (<2.0) 12/16/19 Unknown Ur Leukocyte Esterase Neg (Negative) 12/16/19 Unknown Urine WBC (Auto) 6.0 /HPF (0.0-6.0) 12/16/19 Unknown Urine RBC (Auto) 9.0 /HPF (0.0-6.0) 12/16/19 Unknown U Epithel Cells (Auto) < 1.0 /HPF (0-13.0) 12/16/19 Unknown Urine Bacteria (Auto) 2+ /HPF (Negative) 11/22/19 23:17 Hyaline Casts 3 /LPF 12/16/19 Unknown Granular Casts 3 /LPF 12/16/19 Unknown Urine Mucus Few /HPF 12/16/19 Unknown Vancomycin Trough 33.8 ug/mL (5.0-20.0) H 12/21/19 08:56 Random Vancomycin 16.2 ug/mL (0-40.0) 12/24/19 04:31 Salicylates < 0.3 mg/dL (2.8-20.0) L 11/22/19 23:27 Urine Opiates Screen Presumptive negative 11/22/19 23:17 Urine Methadone Screen Presumptive negative 11/22/19 23:17 Acetaminophen < 5.0 ug/mL (10.0-30.0) L 11/22/19 23:27 Ur Barbiturates Screen Presumptive negative 11/22/19 23:17 Ur Phencyclidine Scrn Presumptive negative 11/22/19 23:17 Ur Amphetamines Screen Presumptive negative 11/22/19 23:17 U Benzodiazepines Scrn Presumptive negative 11/22/19 23:17 Urine Cocaine Screen Presumptive negative 11/22/19 23:17 U Marijuana (THC) Screen Presumptive negative 11/22/19 23:17 Drugs of Abuse Note Disclamer 11/22/19 23:17 Plasma/Serum Alcohol 0.08 % (0-0.07) H 11/22/19 23:27 Coronavirus (PCR) Negative (Negative) 02/05/20 07:50 Hepatitis A IgM Ab Non-reactive (NonReactive) 11/23/19 01:19 Hep Bs Antigen Non-reactive (Negative) 11/23/19 01:19 Hep B Core IgM Ab Non-reactive (NonReactive) 11/23/19 01:19 Hepatitis C Antibody Non-reactive (NonReactive) 11/23/19 01:19 Blood Type O POSITIVE 12/21/19 14:54 Antibody Screen Negative 12/21/19 14:54 Crossmatch See Detail 12/21/19 14:54 - Diagnostic Impressions Diagnostic Impressions: Echocardiogram 11/23/19 03:58 Transthoracic Echocardiogram Indication: Cardiac arrest BP: 131/89 HR: 115 Conclusions *The study quality is technically difficult. *Global left ventricular wall motion and contractility are within normal limits. *The estimated ejection fraction is 55-60%. *Abnormal left ventricular diastolic filling is observed, consistent with impaired relaxation. *There is no pericardial effusion. Findings Procedure Info: The study quality is technically difficult. The study was technically limited due to the patient's inability to lay in the left lateral decubitus position. Left Ventricle: The left ventricular chamber size is normal. There is no left ventricular hypertrophy. Global left ventricular wall motion and contractility are within normal limits. Global left ventricular systolic function is normal. The estimated ejection fraction is 55-60%. Abnormal left ventricular diastolic filling is observed, consistent with impaired relaxation. Left Atrium: The left atrial chamber size is normal. Aortic Valve: The aortic valve leaflets are mildly thickened. Mitral Valve: The mitral valve leaflets are mildly thickened. There is no evidence of mitral regurgitation. Tricuspid Valve: The tricuspid valve leaflets are normal. There is trace tricuspid regurgitation. The right ventricular systolic pressure is calculated at 33 mmHg. Pulmonic Valve: The pulmonic valve appears normal. Pericardium: The pericardium appears normal. There is no pericardial effusion. Aorta: The aorta appears normal. Venous: The inferior vena cava appears normal in size. Measurements Chambers 2D Name Value Normal Range IVSd (2D) 0.94 cm (0.6 - 1.1) LVPWd (2D) 0.81 cm (0.6 - 1.1) LVIDd (2D) 3.6 cm (3.7 - 5.6) LVIDs (2D) 2.27 cm (2 - 3.8) LV FS (2D) 36.93 % - EF Teichholz (2D) 67.76 % - Ao root diameter (2D) 3.03 cm (2 - 3.7) Volumes/Mass Name Value Normal Range LA ESV SP 4CH (A/L) 16.89 ml - LA ESV SP 4CH (MOD) 15.52 ml - Diastolic/Systolic Function Name Value Normal Range MV E-wave Vmax 0.55 m/sec - MV deceleration time 200.89 msec - MV A-wave Vmax 0.68 m/sec - MV E:A ratio 0.82 ratio - Aortic Valve Name Value Normal Range AV Vmax 1.1 m/sec - AV VTI 15.9 cm - AV peak gradient 4.86 mmHg - AV mean gradient 2.59 mmHg - LVOT diameter 2 cm - LVOT Vmax 1.03 m/sec - LVOT VTI 15.87 cm - LVOT peak gradient 4.24 mmHg - LVOT mean gradient 2.41 mmHg - SV LVOT 49.77 ml - JOSÉ MIGUEL (continuity Vmax) 2.93 cm2 - JOSÉ MIGUEL (continuity VTI) 3.13 cm2 - Tricuspid Valve Name Value Normal Range TR Vmax 2.74 m/sec - TR peak gradient 303 mmHg - RAP 3 mmHg - RVSP 33 mmHg - IVC diameter 1.77 cm (1.2 - 2.3) Pulmonic Valve/Qp:Qs Name Value Normal Range PV Vmax 0.77 m/sec - PV peak gradient 2.4 mmHg - PV acceleration time 114.18 msec - Echocardiogram Limited Views 12/17/19 14:53 Transthoracic Echocardiogram Indication: R/O Vegetations BP: 144/83 HR: 133 Conclusions *Global left ventricular systolic function is mildly decreased. *The estimated ejection fraction is 45-50%. *A trivial pericardial effusion is visualized. Findings Left Ventricle: The left ventricular chamber size is normal. Global left ventricular systolic function is mildly decreased. The estimated ejection fraction is 45-50%. Left Atrium: The left atrial chamber size is normal. Right Ventricle: The right ventricular cavity size is normal. Right Atrium: The right atrial cavity size is normal. Aortic Valve: The aortic valve is not well visualized. There is no evidence of aortic regurgitation. Mitral Valve: The mitral valve leaflets are mildly thickened. There is trace of mitral regurgitation. Tricuspid Valve: The tricuspid valve leaflets are mildly thickened. There is trace tricuspid regurgitation. The right ventricular systolic pressure is calculated at 29 mmHg. Pulmonic Valve: The pulmonic valve is not well visualized. There is no evidence of pulmonic regurgitation. Pericardium: A trivial pericardial effusion is visualized. Aorta: There is no dilatation of the ascending aorta. There is no dilatation of the aortic root. Venous: The inferior vena cava appears normal in size. There is a greater than 50% respiratory change in the inferior vena cava dimension. Measurements Chambers 2D Name Value Normal Range IVSd (2D) 0.83 cm (0.6 - 1.1) LVPWd (2D) 0.98 cm (0.6 - 1.1) LVIDd (2D) 3.71 cm (3.7 - 5.6) LVIDs (2D) 2.93 cm (2 - 3.8) LV FS (2D) 21.12 % - EF Teichholz (2D) 43.71 % - Ao root diameter (2D) 3.02 cm (2 - 3.7) Volumes/Mass Name Value Normal Range LA ESV SP 4CH (A/L) 36.8 ml - LA ESV SP 2CH (A/L) 45.89 ml - LA ESV BP (A/L) 42.35 ml - LA ESV BP (A/L) index 26.63 ml/m2 - LA ESV SP 4CH (MOD) 34.42 ml - LA ESV SP 2CH (MOD) 44.21 ml - LA ESV BP (MOD) 39.82 ml - LA ESV BP (MOD) index 25.05 ml/m2 - Aortic Valve Name Value Normal Range LVOT diameter 1.63 cm - Tricuspid Valve Name Value Normal Range TR Vmax 2.56 m/sec - TR peak gradient 26 mmHg - RAP 3 mmHg - RVSP 29 mmHg - IVC diameter 1.83 cm (1.2 - 2.3) Dela Cruz/IV: Voiding Method Incontinent IV Catheter Type [Forearm] Peripheral IV IV Catheter Type [Left Forearm INT / Saline Lock ] IV Catheter Type [Right Peripheral IV Antecubital] IV Catheter Type [Right Hand] Peripheral IV IV Catheter Type [Right Wrist] Peripheral IV IV Catheter Type [Left Wrist] Peripheral IV IV Catheter Type [Left Peripheral IV Antecubital] IV Catheter Type [Right INT / Saline Lock Forearm] IV Catheter Type [Left Hand] Peripheral IV Active Medications - Current Medications Current Medications: Generic Name Dose Route Start Last Admin Trade Name Freq PRN Reason Stop Dose Admin Acetaminophen 650 mg 12/06/19 10:25 02/22/20 10:16 Tylenol FEEDTUBE 650 mg Q6H PRN Administration TEMP >/=100.3 Acetylcysteine 200 mg 02/16/20 20:00 02/23/20 09:16 Mucomyst Inhalation INHALATION 200 mg Q12HRT LUCHO Administration Alprazolam 1 mg 02/21/20 18:24 02/23/20 01:36 Xanax PO 1 mg Q8H PRN Administration Anxiety Lipase/Protease/Amylase 1 each 11/23/19 11:[address] 10,500 Unit FEEDTUBE PRN PRN Use w/ sod bicarb for FT Bisacodyl 10 mg 02/06/20 13:57 Dulcolax VA QDAY PRN Constipation unrelieved by MOM Docusate Sodium 100 mg 02/18/20 22:00 02/23/20 10:28 Colace FEEDTUBE 100 mg BID LUCHO Administration Glycopyrrolate 2 mg 12/31/19 20:00 02/23/20 10:28 Robinul PO 2 mg TID LUCHO Administration Haloperidol Lactate 2 mg 02/21/20 10:51 02/21/20 12:34 Haldol FEEDTUBE 2 mg Q6H PRN Administration Agitation Hydralazine HCl 10 mg 11/24/19 00:45 12/18/19 13:25 Apresoline IV 10 mg Q6H PRN Administration SBP > 160 Hydroxyzine Pamoate 25 mg 12/06/19 10:00 02/23/20 10:31 Vistaril PO 25 mg BID LUCHO Administration Lansoprazole 30 mg 11/27/19 10:00 02/23/20 10:28 Prevacid Solutab FEEDTUBE 30 mg QDAY LUCHO Administration Levalbuterol HCl 0.63 mg 02/17/20 00:00 02/23/20 09:16 Xopenex IH 0.63 mg Q8HRT LUCHO Administration Levetiracetam 500 mg 11/29/19 10:00 02/23/20 10:28 Keppra PO 500 mg BID LUCHO Administration Mirtazapine 30 mg 12/06/19 10:00 02/23/20 10:29 Remeron PO 30 mg DAILY LUCHO Administration Nicotine 21 mg 02/16/20 13:00 02/23/20 10:28 Habitrol TD 21 mg QDAY LUCHO Administration Ondansetron HCl 4 mg 12/10/19 07:53 02/05/20 22:06 Zofran IV 4 mg Q4H PRN Administration Nausea And Vomiting Polyethylene Glycol 17 gm 02/06/20 13:57 Miralax 3350 PO QDAY PRN Constipation Quetiapine Fumarate 100 mg 01/09/20 21:41 02/22/20 22:25 Seroquel FEEDTUBE 100 mg QHS LUCHO Administration Scopolamine 1 each 02/08/20 15:00 02/20/20 17:13 Transderm-Scop TD 1 each Q3D LUCHO Administration Sertraline HCl 25 mg 01/01/20 10:00 02/23/20 10:29 Zoloft PO 25 mg QDAY LUCHO Administration Simple Syrup 15 ml 11/23/19 11:50 Simple Syrup FEEDTUBE PRN PRN Hypoglycemia BG<70 Simple Syrup 30 ml 11/23/19 11:50 Simple Syrup FEEDTUBE PRN PRN Hypoglycemia Sodium Bicarbonate 325 mg 11/23/19 11:50 Sodium Bicarbonate FEEDTUBE PRN PRN For Clogged Feeding Tube Nutrition/Malnutrition Assess - Dietary Evaluation Nutrition/Malnutrition Findings: Nutrition Notes Start: 11/23/19 11:29 Freq: Status: Active Protocol: Document 02/20/20 11:56 LM (Rec: 02/20/20 12:10 LM [email or web address]) Nutrition Notes Initial or Follow up Reassessment Current Diagnosis Hypertension Other Pertinent Diagnosis Cardaic arrest, ETOH dependence, UTI Current Diet Jevity 1.2 at 60ml/hr Labs/Tests Reviewed Pertinent Medications Reviewed Height 5 ft 6 in Weight 45.6 kg [place] Body Weight (kg) 59.09 BMI 16.2 Subjective/Other Information TF running at goal. Percent of energy/protein needs met: 99%/100% Burn Absent Trauma Absent GI Symptoms None Current % PO Negligible Interpretation of Weight Loss (severe) >2% in 1 week Muscle Mass Mild Depletion (non-severe) #2 Nutrition Diagnosis Malnutrition Diagnosis Progress(for reassessment Continues documentation) #1 Nutrition Diagnosis Inadequate oral intake Diagnosis Progress(for reassessment Continues documentation) Is patient on ventilator? No Is Patient Ambulatory and/or Out of Bed No REE-([facility] [facility]-confined to bed) 1291.932 Kcal/Kg value to use for calculation 38 Approximate Energy Requirements Using 1733 kcal/Kg Calculation Used for Recommendations Kcal/kg Additional Notes Protein: 60-75g (1.2-1.5g/kg) Fluid: 1 ml/kcal Nutrition Intervention Change Diet Order: Continue TF Nutrition Support: Change to Jevity 1.2 at 60ml/ hr Flush 100ml q4h Kcal 1,728 Protein (gm) 80 Fluid (mL) 1,162 Goal #1 TF tolerance Goal #2 Meet at least 80% of energy and protein needs via TF Anticipated Discharge Needs: TF Follow-Up By: 02/26/20 Additional Comments F/U for TF tolerance, wt
[2020-02-23] MEDS: SCOPOLAMINE TRANSDERMAL PATCH 72 HR TD SCH ×2 (14:33→14:36)
[2020-02-23] MEDS: METOPROLOL TARTRATE 25 MG TAB PO SCH (21:05)
[2020-02-23] MEDS: QUEtiapine 100 MG TAB FEEDTUBE SCH (21:05)
[2020-02-23] MEDS: HALOPERIDOL LACTATE 10 MG/5 ML ORAL LIQD FEEDTUBE PRN (21:05)
[2020-02-24] MEDS: ALPRAZolam 1 MG TAB PO PRN ×2 (06:35→17:05)
[2020-02-24] MEDS: ACETAMINOPHEN 325 MG/10.15 ML ORAL LIQD UNIT DOSE FEEDTUBE PRN ×2 (06:35→21:11)
[2020-02-24] MEDS: LEVALBUTEROL 0.63 MG/3 ML NEBU IH SCH ×5 (08:19→21:22)
[2020-02-24] MEDS: ACETYLCYSTEINE 20% 200 MG/1 ML *FOR INHALATION USE INHALATION SCH ×2 (08:19→21:22)
[2020-02-24] MEDS: DOCUSATE SODIUM 100 MG/10 ML ORAL LIQD FEEDTUBE SCH ×2 (10:13→21:11)
[2020-02-24] MEDS: METOPROLOL TARTRATE 25 MG TAB PO SCH ×2 (10:13→21:42)
[2020-02-24] MEDS: levETIRAcetam 500 MG/5 ML ORAL LIQD PO SCH ×2 (10:13→21:11)
[2020-02-24] MEDS: SERTRALINE 50 MG TAB PO SCH (10:13)
[2020-02-24] MEDS: GLYCOPYRROLATE 1 MG TAB PO SCH ×3 (10:14→21:13)
[2020-02-24] MEDS: hydrOXYzine PAMOATE 25 MG CAP PO SCH ×2 (10:14→21:13)
[2020-02-24] MEDS: MIRTAZAPINE 30 MG TAB PO SCH (10:14)
[2020-02-24] MEDS: LANSOPRAZOLE 30 MG SOLUTAB FEEDTUBE SCH (10:14)
[2020-02-24] MEDS: NICOTINE 21 MG/24 HR PATCH TD SCH (10:14)
--- NOTE | 2020-02-24 15:28 | Progress Note ---
Assessment and Plan Assessment and plan: 02/17: Patient pending placement, Following extubation, the patient has remained with AMS, on restraints, no new fever but tachycardia, still requiring aggressive pulmonary toilet. 02/19; Pseudomonas sputum cultures, colonization/tracheostomy tube No treatment needed 02/21/2020; clinically no change, continue current management Awaiting placement 02/22/20 ; patient is slightly restless and agitated Will try Ativan as needed, awaiting placement 02/23/2020; sinus tachycardia, mild agitation Patient started on Ativan as needed, I will add low-dose of metoprolol Monitor closely 02/24/2020; patient is comfortable clinically no change Awaiting placement --Anoxic brain injury: suspected CT head: No acute abnormality. EEG ordered showed Generalized slowing. No seizures or epileptiform activity. Patient now opening her eyes, can speak and able to follow minor command by nodding head --Acute Respiratory failure with hypoxia s/p Tracheostomy --Positive sputum cultures; colonization tracheostomy No need to treat --Status post cardiac arrest s/p intubation, s/p trach and PEG on 12/12 with mechanical ventilation, now on T-piece CTA was done and negative for PE, Echo quality is poor, showed diastolic dysfunction continue weaning as tolerated --Oropharyngeal dysphagia s/p PEG --Persistent Tachycardia --BHAVANA / vasomotor nephropathy; resolved --Anemia, microcytic Status post 3 units PRBC transfusion, H&H low stable --Acute metabolic encephalopathy/toxic encephalopathy multifactorial, supportive care --Hyperammonemia -resolved --Metabolic Acidosis Alcohol ketoacidosis vs hypoprofusion Continue to monitor --Acute cystitis --ELevated LFTs, stable now due to ischemic hepatitis. --Leucocytosis with sepsis Source MRSA bacteremia and MSSA pneumonia. UA showed pyuria. RUQ US showed no ascites. Repeat TTE negative for vegetation. Completed 7 days of Ceftriaxone on 11/29/2019. Treated with Abx vancomycin 1 gm IV q 12 hour total 2 week till 12/30/2019 Resolved --MSSA pneumonia: Status post vancomycin till 12/30/2019 --ALcohol USe Disorder given ongoing Alcohol use almost daily, s/p IV Thiamine monitor --Severe hypokalemia -Repleted --Seizure disorder: treat with Keppra --H. Influenzae, tracheobronchitis, treated with abx --Moderate to severe fecal impaction - will add stool softner --Anxiety disorder: Psych consulted --DNR CODE STATUS Disposition: prognosis guarded. PT recommended subacute rehab, discharge pending on placement. negative for COVID 19 Disposition ;awaiting Placement to SNF History Interval history: I have seen and examined at the bedside this morning Patient is in mild distress status post tracheostomy Vital signs reviewed Awaiting placement Hospitalist Physical - Constitutional Vitals: Temp Pulse Resp BP Pulse Ox 98.2 F 94 H 20 102/66 99 02/24/20 07:09 02/24/20 13:54 02/24/20 13:54 02/24/20 07:09 02/24/20 14:09 General appearance: Present: mild distress, cachectic, disheveled, other (Noncommunicative) - EENT Eyes: Present: PERRL, EOM intact - Neck Neck: Present: supple, normal ROM - Respiratory Respiratory effort: normal Respiratory: bilateral: diminished, rhonchi, negative: rales, wheezing - Cardiovascular Rhythm: regular Heart Sounds: Present: S1 & S2 - Extremities Extremities: no ischemia, No edema - Abdominal General gastrointestinal: soft, non-tender, non-distended, normal bowel sounds - Integumentary Integumentary: Present: clear, warm - Psychiatric Psychiatric: other (Noncommunicative) - Neurologic Neurologic: other (Noncommunicative) HEART Score - HEART Score Troponin: Troponin T < 0.010 ng/mL (0.00-0.029) 11/22/19 23:27 Results - Labs CBC & Chem 7: 02/17/20 07:57 02/17/20 07:57 Labs: Laboratory Last Values WBC 12.6 K/mm3 (4.5-11.0) H 02/17/20 07:57 RBC 3.52 M/mm3 (3.65-5.03) L 02/17/20 07:57 Hgb 10.2 gm/dl (10.1-14.3) 02/17/20 07:57 Hct 30.8 % (30.3-42.9) 02/17/20 07:57 MCV 88 fl (79-97) 02/17/20 07:57 MCH 29 pg (28-32) 02/17/20 07:57 MCHC 33 % (30-34) 02/17/20 07:57 RDW 15.3 % (13.2-15.2) H 02/17/20 07:57 Plt Count 643 K/mm3 (140-440) H 02/17/20 07:57 Lymph % (Auto) 21.3 % (13.4-35.0) 02/17/20 07:57 Castro % (Auto) 8.0 % (0.0-7.3) H 02/17/20 07:57 Eos % (Auto) 2.5 % (0.0-4.3) 02/17/20 07:57 Baso % (Auto) 0.5 % (0.0-1.8) 02/17/20 07:57 Lymph # 2.7 K/mm3 (1.2-5.4) 02/17/20 07:57 Castro # 1.0 K/mm3 (0.0-0.8) H 02/17/20 07:57 Eos # 0.3 K/mm3 (0.0-0.4) 02/17/20 07:57 Baso # 0.1 K/mm3 (0.0-0.1) 02/17/20 07:57 Add Manual Diff Complete 12/25/19 03:47 Total Counted 200 12/25/19 03:47 Seg Neutrophils % 67.7 % (40.0-70.0) 02/17/20 07:57 Seg Neuts % (Manual) 97.5 % (40.0-70.0) H 12/25/19 03:47 Band Neutrophils % 0 % 12/25/19 03:47 Lymphocytes % (Manual) 1.0 % (13.4-35.0) L 12/25/19 03:47 Reactive Lymphs % (Man) 0 % 12/25/19 03:47 Monocytes % (Manual) 1.5 % (0.0-7.3) 12/25/19 03:47 Eosinophils % (Manual) 0 % (0.0-4.3) 12/25/19 03:47 Basophils % (Manual) 0 % (0.0-1.8) 12/25/19 03:47 Metamyelocytes % 0 % 12/25/19 03:47 Myelocytes % 0 % 12/25/19 03:47 Promyelocytes % 0 % 12/25/19 03:47 Blast Cells % 0 % 12/25/19 03:47 Nucleated RBC % Not Reportable 12/25/19 03:47 Seg Neutrophils # 8.5 K/mm3 (1.8-7.7) H 02/17/20 07:57 Seg Neutrophils # Man 35.3 K/mm3 (1.8-7.7) H 12/25/19 03:47 Band Neutrophils # 0.0 K/mm3 12/25/19 03:47 Lymphocytes # (Manual) 0.4 K/mm3 (1.2-5.4) L 12/25/19 03:47 Abs React Lymphs (Man) 0.0 K/mm3 12/25/19 03:47 Monocytes # (Manual) 0.5 K/mm3 (0.0-0.8) 12/25/19 03:47 Eosinophils # (Manual) 0.0 K/mm3 (0.0-0.4) 12/25/19 03:47 Basophils # (Manual) 0.0 K/mm3 (0.0-0.1) 12/25/19 03:47 Metamyelocytes # 0.0 K/mm3 12/25/19 03:47 Myelocytes # 0.0 K/mm3 12/25/19 03:47 Promyelocytes # 0.0 K/mm3 12/25/19 03:47 Blast Cells # 0.0 K/mm3 12/25/19 03:47 Pathologist Review 12/13/19 07:48 WBC Morphology Not Reportable 12/25/19 03:47 Hypersegmented Neuts Not Reportable 12/25/19 03:47 Hyposegmented Neuts Not Reportable 12/25/19 03:47 Hypogranular Neuts Not Reportable 12/25/19 03:47 Smudge Cells Not Reportable 12/25/19 03:47 Toxic Granulation Not Reportable 12/25/19 03:47 Toxic Vacuolation Not Reportable 12/25/19 03:47 Dohle Bodies Not Reportable 12/25/19 03:47 Pelger-Huet Anomaly Not Reportable 12/25/19 03:47 Dominique Rods Not Reportable 12/25/19 03:47 Platelet Estimate Consistent w auto 12/25/19 03:47 Clumped Platelets Not Reportable 12/25/19 03:47 Plt Clumps, EDTA Not Reportable 12/25/19 03:47 Large Platelets Not Reportable 12/25/19 03:47 Giant Platelets Not Reportable 12/25/19 03:47 Platelet Satelliting Not Reportable 12/25/19 03:47 Plt Morphology Comment Not Reportable 12/25/19 03:47 RBC Morphology Not Reportable 12/25/19 03:47 Dimorphic RBCs Not Reportable 12/25/19 03:47 Polychromasia Not Reportable 12/25/19 03:47 Hypochromasia Not Reportable 12/25/19 03:47 Poikilocytosis Not Reportable 12/25/19 03:47 Anisocytosis 1+ 12/25/19 03:47 Microcytosis Not Reportable 12/25/19 03:47 Macrocytosis Not Reportable 12/25/19 03:47 Spherocytes Not Reportable 12/25/19 03:47 Pappenheimer Bodies Not Reportable 12/25/19 03:47 Sickle Cells Not Reportable 12/25/19 03:47 Target Cells Not Reportable 12/25/19 03:47 Tear Drop Cells Not Reportable 12/25/19 03:47 Ovalocytes Not Reportable 12/25/19 03:47 Helmet Cells Not Reportable 12/25/19 03:47 [place] Bodies Not Reportable 12/25/19 03:47 [place] Rings Not Reportable 12/25/19 03:47 Jamshid Cells Not Reportable 12/25/19 03:47 Bite Cells Not Reportable 12/25/19 03:47 Crenated Cell Not Reportable 12/25/19 03:47 Elliptocytes Not Reportable 12/25/19 03:47 Acanthocytes (Spur) Not Reportable 12/25/19 03:47 Rouleaux Not Reportable 12/25/19 03:47 Hemoglobin C Crystals Not Reportable 12/25/19 03:47 Schistocytes Not Reportable 12/25/19 03:47 Malaria parasites Not Reportable 12/25/19 03:47 Gregg Bodies Not Reportable 12/25/19 03:47 Hem Pathologist Commnt No 12/25/19 03:47 PT 17.0 Sec. (12.2-14.9) H 11/23/19 03:47 INR 1.36 (0.87-1.13) H 11/23/19 03:47 APTT 128.2 Sec. (24.2-36.6) H* 11/23/19 03:47 Heparin Anti-Xa Level 0.31 U.I./ml (0.3-0.7) 11/23/19 09:03 ABG pH 7.429 pH Units (7.350-7.450) 01/09/20 08:51 ABG pCO2 39.1 mm Hg 01/09/20 08:51 ABG pO2 94.3 mm Hg (80.0-90.0) H 01/09/20 08:51 ABG HCO3 25.3 mmol/L (20.0-26.0) 01/09/20 08:51 ABG O2 Saturation 97.4 % (95.0-99.0) 01/09/20 08:51 ABG O2 Content 12.9 (0.0-44) 01/09/20 08:51 ABG Base Excess 1.0 mmol/L (-2.0-3.0) 01/09/20 08:51 ABG Hemoglobin 9.5 gm/dl (12.0-16.0) L 01/09/20 08:51 ABG Carboxyhemoglobin 1.3 % (0.0-5.0) 01/09/20 08:51 ABG Methemoglobin 0.4 % (0.0-1.5) 01/09/20 08:51 Oxyhemoglobin 95.7 % (95.0-99.0) 01/09/20 08:51 FiO2 35 % 01/09/20 08:51 Sodium 137 mmol/L (137-145) 02/17/20 07:57 Potassium 4.7 mmol/L (3.6-5.0) 02/17/20 07:57 Chloride 96.9 mmol/L (98-107) L 02/17/20 07:57 Carbon Dioxide 25 mmol/L (22-30) 02/17/20 07:57 Anion Gap 20 mmol/L 02/17/20 07:57 BUN 21 mg/dL (7-17) H 02/17/20 07:57 Creatinine 0.4 mg/dL (0.7-1.2) L 02/17/20 07:57 Estimated GFR > 60 ml/min 02/17/20 07:57 BUN/Creatinine Ratio 53 % 02/17/20 07:57 Glucose 113 mg/dL (65-100) H 02/17/20 07:57 POC Glucose 118 (70-105) H 02/24/20 07:00 Lactic Acid 1.80 mmol/L (0.7-2.0) 11/25/19 05:05 Calcium 10.5 mg/dL (8.4-10.2) H 02/17/20 07:57 Ionized Calcium 4.5 mg/dL (4.8-5.6) L 11/23/19 06:32 Phosphorus 4.20 mg/dL (2.5-4.5) D 11/28/19 08:59 Magnesium 2.30 mg/dL (1.7-2.3) 11/29/19 13:41 Total Bilirubin 0.40 mg/dL (0.1-1.2) 12/13/19 07:48 AST 27 units/L (5-40) 12/13/19 07:48 ALT 26 units/L (7-56) 12/13/19 07:48 Alkaline Phosphatase 316 units/L (35-129) H 12/13/19 07:48 Ammonia 42.0 umol/L (25-60) 11/29/19 13:41 Total Creatine Kinase 139 units/L (30-135) H 11/22/19 23:27 CK-MB (CK-2) 8.3 ng/mL (0.0-4.0) H 11/22/19 23:27 CK-MB (CK-2) Rel Index 5.9 (0-4) H 11/22/19 23:27 Troponin T < 0.010 ng/mL (0.00-0.029) 11/22/19 23:27 Total Protein 6.8 g/dL (6.3-8.2) 12/13/19 07:48 Albumin 2.4 g/dL (3.9-5) L 12/13/19 07:48 Albumin/Globulin Ratio 0.5 % 12/13/19 07:48 Lipase 18 units/L (13-60) 11/23/19 00:34 Procalcitonin 1.09 ng/mL (<0.15) 11/23/19 04:53 TSH 1.010 mlU/mL (0.270-4.200) 02/12/20 07:36 Free T4 1.08 ng/dL (0.76-1.46) 02/12/20 07:36 Urine Color Yellow (Yellow) 12/16/19 Unknown Urine Turbidity Slightly-cloudy (Clear) 12/16/19 Unknown Urine pH 5.0 (5.0-7.0) 12/16/19 Unknown Ur Specific Rice 1.018 (1.003-1.030) 12/16/19 Unknown Urine Protein 30 mg/dl mg/dL (Negative) 12/16/19 Unknown Urine Glucose (UA) Neg mg/dL (Negative) 12/16/19 Unknown Urine Ketones Neg mg/dL (Negative) 12/16/19 Unknown Urine Blood Sm (Negative) 12/16/19 Unknown Urine Nitrite Neg (Negative) 12/16/19 Unknown Urine Bilirubin Neg (Negative) 12/16/19 Unknown Urine Urobilinogen < 2.0 mg/dL (<2.0) 12/16/19 Unknown Ur Leukocyte Esterase Neg (Negative) 12/16/19 Unknown Urine WBC (Auto) 6.0 /HPF (0.0-6.0) 12/16/19 Unknown Urine RBC (Auto) 9.0 /HPF (0.0-6.0) 12/16/19 Unknown U Epithel Cells (Auto) < 1.0 /HPF (0-13.0) 12/16/19 Unknown Urine Bacteria (Auto) 2+ /HPF (Negative) 11/22/19 23:17 Hyaline Casts 3 /LPF 12/16/19 Unknown Granular Casts 3 /LPF 12/16/19 Unknown Urine Mucus Few /HPF 12/16/19 Unknown Vancomycin Trough 33.8 ug/mL (5.0-20.0) H 12/21/19 08:56 Random Vancomycin 16.2 ug/mL (0-40.0) 12/24/19 04:31 Salicylates < 0.3 mg/dL (2.8-20.0) L 11/22/19 23:27 Urine Opiates Screen Presumptive negative 11/22/19 23:17 Urine Methadone Screen Presumptive negative 11/22/19 23:17 Acetaminophen < 5.0 ug/mL (10.0-30.0) L 11/22/19 23:27 Ur Barbiturates Screen Presumptive negative 11/22/19 23:17 Ur Phencyclidine Scrn Presumptive negative 11/22/19 23:17 Ur Amphetamines Screen Presumptive negative 11/22/19 23:17 U Benzodiazepines Scrn Presumptive negative 11/22/19 23:17 Urine Cocaine Screen Presumptive negative 11/22/19 23:17 U Marijuana (THC) Screen Presumptive negative 11/22/19 23:17 Drugs of Abuse Note Disclamer 11/22/19 23:17 Plasma/Serum Alcohol 0.08 % (0-0.07) H 11/22/19 23:27 Coronavirus (PCR) Negative (Negative) 02/05/20 07:50 Hepatitis A IgM Ab Non-reactive (NonReactive) 11/23/19 01:19 Hep Bs Antigen Non-reactive (Negative) 11/23/19 01:19 Hep B Core IgM Ab Non-reactive (NonReactive) 11/23/19 01:19 Hepatitis C Antibody Non-reactive (NonReactive) 11/23/19 01:19 Blood Type O POSITIVE 12/21/19 14:54 Antibody Screen Negative 12/21/19 14:54 Crossmatch See Detail 12/21/19 14:54 - Diagnostic Impressions Diagnostic Impressions: Echocardiogram 11/23/19 03:58 Transthoracic Echocardiogram Indication: Cardiac arrest BP: 131/89 HR: 115 Conclusions *The study quality is technically difficult. *Global left ventricular wall motion and contractility are within normal limits. *The estimated ejection fraction is 55-60%. *Abnormal left ventricular diastolic filling is observed, consistent with impaired relaxation. *There is no pericardial effusion. Findings Procedure Info: The study quality is technically difficult. The study was technically limited due to the patient's inability to lay in the left lateral decubitus position. Left Ventricle: The left ventricular chamber size is normal. There is no left ventricular hypertrophy. Global left ventricular wall motion and contractility are within normal limits. Global left ventricular systolic function is normal. The estimated ejection fraction is 55-60%. Abnormal left ventricular diastolic filling is observed, consistent with impaired relaxation. Left Atrium: The left atrial chamber size is normal. Aortic Valve: The aortic valve leaflets are mildly thickened. Mitral Valve: The mitral valve leaflets are mildly thickened. There is no evidence of mitral regurgitation. Tricuspid Valve: The tricuspid valve leaflets are normal. There is trace tricuspid regurgitation. The right ventricular systolic pressure is calculated at 33 mmHg. Pulmonic Valve: The pulmonic valve appears normal. Pericardium: The pericardium appears normal. There is no pericardial effusion. Aorta: The aorta appears normal. Venous: The inferior vena cava appears normal in size. Measurements Chambers 2D Name Value Normal Range IVSd (2D) 0.94 cm (0.6 - 1.1) LVPWd (2D) 0.81 cm (0.6 - 1.1) LVIDd (2D) 3.6 cm (3.7 - 5.6) LVIDs (2D) 2.27 cm (2 - 3.8) LV FS (2D) 36.93 % - EF Teichholz (2D) 67.76 % - Ao root diameter (2D) 3.03 cm (2 - 3.7) Volumes/Mass Name Value Normal Range LA ESV SP 4CH (A/L) 16.89 ml - LA ESV SP 4CH (MOD) 15.52 ml - Diastolic/Systolic Function Name Value Normal Range MV E-wave Vmax 0.55 m/sec - MV deceleration time 200.89 msec - MV A-wave Vmax 0.68 m/sec - MV E:A ratio 0.82 ratio - Aortic Valve Name Value Normal Range AV Vmax 1.1 m/sec - AV VTI 15.9 cm - AV peak gradient 4.86 mmHg - AV mean gradient 2.59 mmHg - LVOT diameter 2 cm - LVOT Vmax 1.03 m/sec - LVOT VTI 15.87 cm - LVOT peak gradient 4.24 mmHg - LVOT mean gradient 2.41 mmHg - SV LVOT 49.77 ml - JOSÉ MIGUEL (continuity Vmax) 2.93 cm2 - JOSÉ MIGUEL (continuity VTI) 3.13 cm2 - Tricuspid Valve Name Value Normal Range TR Vmax 2.74 m/sec - TR peak gradient 303 mmHg - RAP 3 mmHg - RVSP 33 mmHg - IVC diameter 1.77 cm (1.2 - 2.3) Pulmonic Valve/Qp:Qs Name Value Normal Range PV Vmax 0.77 m/sec - PV peak gradient 2.4 mmHg - PV acceleration time 114.18 msec - Echocardiogram Limited Views 12/17/19 14:53 Transthoracic Echocardiogram Indication: R/O Vegetations BP: 144/83 HR: 133 Conclusions *Global left ventricular systolic function is mildly decreased. *The estimated ejection fraction is 45-50%. *A trivial pericardial effusion is visualized. Findings Left Ventricle: The left ventricular chamber size is normal. Global left ventricular systolic function is mildly decreased. The estimated ejection fraction is 45-50%. Left Atrium: The left atrial chamber size is normal. Right Ventricle: The right ventricular cavity size is normal. Right Atrium: The right atrial cavity size is normal. Aortic Valve: The aortic valve is not well visualized. There is no evidence of aortic regurgitation. Mitral Valve: The mitral valve leaflets are mildly thickened. There is trace of mitral regurgitation. Tricuspid Valve: The tricuspid valve leaflets are mildly thickened. There is trace tricuspid regurgitation. The right ventricular systolic pressure is calculated at 29 mmHg. Pulmonic Valve: The pulmonic valve is not well visualized. There is no evidence of pulmonic regurgitation. Pericardium: A trivial pericardial effusion is visualized. Aorta: There is no dilatation of the ascending aorta. There is no dilatation of the aortic root. Venous: The inferior vena cava appears normal in size. There is a greater than 50% respiratory change in the inferior vena cava dimension. Measurements Chambers 2D Name Value Normal Range IVSd (2D) 0.83 cm (0.6 - 1.1) LVPWd (2D) 0.98 cm (0.6 - 1.1) LVIDd (2D) 3.71 cm (3.7 - 5.6) LVIDs (2D) 2.93 cm (2 - 3.8) LV FS (2D) 21.12 % - EF Teichholz (2D) 43.71 % - Ao root diameter (2D) 3.02 cm (2 - 3.7) Volumes/Mass Name Value Normal Range LA ESV SP 4CH (A/L) 36.8 ml - LA ESV SP 2CH (A/L) 45.89 ml - LA ESV BP (A/L) 42.35 ml - LA ESV BP (A/L) index 26.63 ml/m2 - LA ESV SP 4CH (MOD) 34.42 ml - LA ESV SP 2CH (MOD) 44.21 ml - LA ESV BP (MOD) 39.82 ml - LA ESV BP (MOD) index 25.05 ml/m2 - Aortic Valve Name Value Normal Range LVOT diameter 1.63 cm - Tricuspid Valve Name Value Normal Range TR Vmax 2.56 m/sec - TR peak gradient 26 mmHg - RAP 3 mmHg - RVSP 29 mmHg - IVC diameter 1.83 cm (1.2 - 2.3) Del[place] Cruz/IV: Voiding Method Incontinent IV Catheter Type [Forearm] Peripheral IV IV Catheter Type [Left Forearm INT / Saline Lock ] IV Catheter Type [Right INT / Saline Lock Antecubital] IV Catheter Type [Right Hand] Peripheral IV IV Catheter Type [Right Wrist] Peripheral IV IV Catheter Type [Left Wrist] Peripheral IV IV Catheter Type [Left Peripheral IV Antecubital] IV Catheter Type [Right INT / Saline Lock Forearm] IV Catheter Type [Left Hand] Peripheral IV Active Medications - Current Medications Current Medications: Generic Name Dose Route Start Last Admin Trade Name Freq PRN Reason Stop Dose Admin Acetaminophen 650 mg 12/06/19 10:25 02/24/20 06:35 Tylenol FEEDTUBE 650 mg Q6H PRN Administration TEMP >/=100.3 Acetylcysteine 200 mg 02/16/20 20:00 02/24/20 08:19 Mucomyst Inhalation INHALATION 200 mg Q12HRT LUCHO Administration Alprazolam 1 mg 02/21/20 18:24 02/24/20 06:35 Xanax PO 1 mg Q8H PRN Administration Anxiety Lipase/Protease/Amylase 1 each 11/23/19 11:[address] 10,500 Unit FEEDTUBE PRN PRN Use w/ sod bicarb for FT Bisacodyl 10 mg 02/06/20 13:57 Dulcolax NM QDAY PRN Constipation unrelieved by MOM Docusate Sodium 100 mg 02/18/20 22:00 02/24/20 10:13 Colace FEEDTUBE 100 mg BID LUCHO Administration Glycopyrrolate 2 mg 12/31/19 20:00 02/24/20 10:14 Robinul PO 2 mg TID LUCHO Administration Haloperidol Lactate 2 mg 02/21/20 10:51 02/23/20 21:05 Haldol FEEDTUBE 2 mg Q6H PRN Administration Agitation Hydralazine HCl 10 mg 11/24/19 00:45 12/18/19 13:25 Apresoline IV 10 mg Q6H PRN Administration SBP > 160 Hydroxyzine Pamoate 25 mg 12/06/19 10:00 02/24/20 10:14 Vistaril PO 25 mg BID LUCHO Administration Lansoprazole 30 mg 11/27/19 10:00 02/24/20 10:14 Prevacid Solutab FEEDTUBE 30 mg QDAY LUCHO Administration Levalbuterol HCl 0.63 mg 02/17/20 00:00 02/24/20 15:23 Xopenex IH Not Given Q8HRT LUCHO Levetiracetam 500 mg 11/29/19 10:00 02/24/20 10:13 Keppra PO 500 mg BID LUCHO Administration Metoprolol Tartrate 12.5 mg 02/23/20 22:00 02/24/20 10:13 Metoprolol PO 12.5 mg BID LUCHO Administration Mirtazapine 30 mg 12/06/19 10:00 02/24/20 10:14 Remeron PO 30 mg DAILY LUCHO Administration Nicotine 21 mg 02/16/20 13:00 02/24/20 10:14 Habitrol TD 21 mg QDAY LUCHO Administration Ondansetron HCl 4 mg 12/10/19 07:53 02/05/20 22:06 Zofran IV 4 mg Q4H PRN Administration Nausea And Vomiting Polyethylene Glycol 17 gm 02/06/20 13:57 Miralax 3350 PO QDAY PRN Constipation Quetiapine Fumarate 100 mg 01/09/20 21:41 02/23/20 21:05 Seroquel FEEDTUBE 100 mg QHS LUCHO Administration Scopolamine 1 each 02/08/20 15:00 02/23/20 14:36 Transderm-Scop TD 1 each Q3D LUCHO Administration Sertraline HCl 25 mg 01/01/20 10:00 02/24/20 10:13 Zoloft PO 25 mg QDAY LUCHO Administration Simple Syrup 15 ml 11/23/19 11:50 Simple Syrup FEEDTUBE PRN PRN Hypoglycemia BG<70 Simple Syrup 30 ml 11/23/19 11:50 Simple Syrup FEEDTUBE PRN PRN Hypoglycemia Sodium Bicarbonate 325 mg 11/23/19 11:50 Sodium Bicarbonate FEEDTUBE PRN PRN For Clogged Feeding Tube Nutrition/Malnutrition Assess - Dietary Evaluation Nutrition/Malnutrition Findings: Nutrition Notes Start: 11/23/19 11:29 Freq: Status: Active Protocol: Document 02/20/20 11:56 LM (Rec: 02/20/20 12:10 LM [email or web address]) Nutrition Notes Initial or Follow up Reassessment Current Diagnosis Hypertension Other Pertinent Diagnosis Cardaic arrest, ETOH dependence, UTI Current Diet Jevity 1.2 at 60ml/hr Labs/Tests Reviewed Pertinent Medications Reviewed Height 5 ft 6 in Weight 45.6 kg [place] Body Weight (kg) 59.09 BMI 16.2 Subjective/Other Information TF running at goal. Percent of energy/protein needs met: 99%/100% Burn Absent Trauma Absent GI Symptoms None Current % PO Negligible Interpretation of Weight Loss (severe) >2% in 1 week Muscle Mass Mild Depletion (non-severe) #2 Nutrition Diagnosis Malnutrition Diagnosis Progress(for reassessment Continues documentation) #1 Nutrition Diagnosis Inadequate oral intake Diagnosis Progress(for reassessment Continues documentation) Is patient on ventilator? No Is Patient Ambulatory and/or Out of Bed No REE-([place]-. [facility]-confined to bed) 1291.932 Kcal/Kg value to use for calculation 38 Approximate Energy Requirements Using 1733 kcal/Kg Calculation Used for Recommendations Kcal/kg Additional Notes Protein: 60-75g (1.2-1.5g/kg) Fluid: 1 ml/kcal Nutrition Intervention Change Diet Order: Continue TF Nutrition Support: Change to Jevity 1.2 at 60ml/ hr Flush 100ml q4h Kcal 1,728 Protein (gm) 80 Fluid (mL) 1,162 Goal #1 TF tolerance Goal #2 Meet at least 80% of energy and protein needs via TF Anticipated Discharge Needs: TF Follow-Up By: 02/26/20 Additional Comments F/U for TF tolerance, wt
[2020-02-24] MEDS: QUEtiapine 100 MG TAB FEEDTUBE SCH (21:11)
[2020-02-25] MEDS: LEVALBUTEROL 0.63 MG/3 ML NEBU IH SCH ×4 (02:15→20:13)
[2020-02-25] MEDS: ONDANSETRON 4 MG/2 ML INJ IV PRN (02:51)
[2020-02-25] MEDS: ALPRAZolam 1 MG TAB PO PRN ×2 (05:09→16:48)
[2020-02-25] MEDS: ACETYLCYSTEINE 20% 200 MG/1 ML *FOR INHALATION USE INHALATION SCH ×2 (08:23→20:14)
--- NOTE | 2020-02-25 09:01 | Progress Note ---
History Interval history: Patient seen and examined at the bedside Patient's chart medications overnight events reviewed Patient is slightly agitated , improved with low-dose Xanax Chronically ill looking mild distress Vital signs reviewed Hospitalist Physical - Constitutional Vitals: Temp Pulse Resp BP Pulse Ox 97.4 F L 108 H 18 115/76 99 02/25/20 08:32 02/25/20 08:32 02/25/20 08:32 02/25/20 08:32 02/25/20 08:32 General appearance: Present: mild distress, cachectic, disheveled, other (Noncommunicative) HEART Score - HEART Score Troponin: Troponin T < 0.010 ng/mL (0.00-0.029) 11/22/19 23:27 Results - Labs CBC & Chem 7: 02/17/20 07:57 02/17/20 07:57 Labs: Laboratory Last Values WBC 12.6 K/mm3 (4.5-11.0) H 02/17/20 07:57 RBC 3.52 M/mm3 (3.65-5.03) L 02/17/20 07:57 Hgb 10.2 gm/dl (10.1-14.3) 02/17/20 07:57 Hct 30.8 % (30.3-42.9) 02/17/20 07:57 MCV 88 fl (79-97) 02/17/20 07:57 MCH 29 pg (28-32) 02/17/20 07:57 MCHC 33 % (30-34) 02/17/20 07:57 RDW 15.3 % (13.2-15.2) H 02/17/20 07:57 Plt Count 643 K/mm3 (140-440) H 02/17/20 07:57 Lymph % (Auto) 21.3 % (13.4-35.0) 02/17/20 07:57 Sanders % (Auto) 8.0 % (0.0-7.3) H 02/17/20 07:57 Eos % (Auto) 2.5 % (0.0-4.3) 02/17/20 07:57 Baso % (Auto) 0.5 % (0.0-1.8) 02/17/20 07:57 Lymph # 2.7 K/mm3 (1.2-5.4) 02/17/20 07:57 Sanders # 1.0 K/mm3 (0.0-0.8) H 02/17/20 07:57 Eos # 0.3 K/mm3 (0.0-0.4) 02/17/20 07:57 Baso # 0.1 K/mm3 (0.0-0.1) 02/17/20 07:57 Add Manual Diff Complete 12/25/19 03:47 Total Counted 200 12/25/19 03:47 Seg Neutrophils % 67.7 % (40.0-70.0) 02/17/20 07:57 Seg Neuts % (Manual) 97.5 % (40.0-70.0) H 12/25/19 03:47 Band Neutrophils % 0 % 12/25/19 03:47 Lymphocytes % (Manual) 1.0 % (13.4-35.0) L 12/25/19 03:47 Reactive Lymphs % (Man) 0 % 12/25/19 03:47 Monocytes % (Manual) 1.5 % (0.0-7.3) 12/25/19 03:47 Eosinophils % (Manual) 0 % (0.0-4.3) 12/25/19 03:47 Basophils % (Manual) 0 % (0.0-1.8) 12/25/19 03:47 Metamyelocytes % 0 % 12/25/19 03:47 Myelocytes % 0 % 12/25/19 03:47 Promyelocytes % 0 % 12/25/19 03:47 Blast Cells % 0 % 12/25/19 03:47 Nucleated RBC % Not Reportable 12/25/19 03:47 Seg Neutrophils # 8.5 K/mm3 (1.8-7.7) H 02/17/20 07:57 Seg Neutrophils # Man 35.3 K/mm3 (1.8-7.7) H 12/25/19 03:47 Band Neutrophils # 0.0 K/mm3 12/25/19 03:47 Lymphocytes # (Manual) 0.4 K/mm3 (1.2-5.4) L 12/25/19 03:47 Abs React Lymphs (Man) 0.0 K/mm3 12/25/19 03:47 Monocytes # (Manual) 0.5 K/mm3 (0.0-0.8) 12/25/19 03:47 Eosinophils # (Manual) 0.0 K/mm3 (0.0-0.4) 12/25/19 03:47 Basophils # (Manual) 0.0 K/mm3 (0.0-0.1) 12/25/19 03:47 Metamyelocytes # 0.0 K/mm3 12/25/19 03:47 Myelocytes # 0.0 K/mm3 12/25/19 03:47 Promyelocytes # 0.0 K/mm3 12/25/19 03:47 Blast Cells # 0.0 K/mm3 12/25/19 03:47 Pathologist Review 12/13/19 07:48 WBC Morphology Not Reportable 12/25/19 03:47 Hypersegmented Neuts Not Reportable 12/25/19 03:47 Hyposegmented Neuts Not Reportable 12/25/19 03:47 Hypogranular Neuts Not Reportable 12/25/19 03:47 Smudge Cells Not Reportable 12/25/19 03:47 Toxic Granulation Not Reportable 12/25/19 03:47 Toxic Vacuolation Not Reportable 12/25/19 03:47 Dohle Bodies Not Reportable 12/25/19 03:47 Pelger-Huet Anomaly Not Reportable 12/25/19 03:47 Dominique Rods Not Reportable 12/25/19 03:47 Platelet Estimate Consistent w auto 12/25/19 03:47 Clumped Platelets Not Reportable 12/25/19 03:47 Plt Clumps, EDTA Not Reportable 12/25/19 03:47 Large Platelets Not Reportable 12/25/19 03:47 Giant Platelets Not Reportable 12/25/19 03:47 Platelet Satelliting Not Reportable 12/25/19 03:47 Plt Morphology Comment Not Reportable 12/25/19 03:47 RBC Morphology Not Reportable 12/25/19 03:47 Dimorphic RBCs Not Reportable 12/25/19 03:47 Polychromasia Not Reportable 12/25/19 03:47 Hypochromasia Not Reportable 12/25/19 03:47 Poikilocytosis Not Reportable 12/25/19 03:47 Anisocytosis 1+ 12/25/19 03:47 Microcytosis Not Reportable 12/25/19 03:47 Macrocytosis Not Reportable 12/25/19 03:47 Spherocytes Not Reportable 12/25/19 03:47 Pappenheimer Bodies Not Reportable 12/25/19 03:47 Sickle Cells Not Reportable 12/25/19 03:47 Target Cells Not Reportable 12/25/19 03:47 Tear Drop Cells Not Reportable 12/25/19 03:47 Ovalocytes Not Reportable 12/25/19 03:47 Helmet Cells Not Reportable 12/25/19 03:47 [place] Bodies Not Reportable 12/25/19 03:47 [place] Rings Not Reportable 12/25/19 03:47 [place] Cells Not Reportable 12/25/19 03:47 Bite Cells Not Reportable 12/25/19 03:47 Crenated Cell Not Reportable 12/25/19 03:47 Elliptocytes Not Reportable 12/25/19 03:47 Acanthocytes (Spur) Not Reportable 12/25/19 03:47 Rouleaux Not Reportable 12/25/19 03:47 Hemoglobin C Crystals Not Reportable 12/25/19 03:47 Schistocytes Not Reportable 12/25/19 03:47 Malaria parasites Not Reportable 12/25/19 03:47 Gregg Bodies Not Reportable 12/25/19 03:47 Hem Pathologist Commnt No 12/25/19 03:47 PT 17.0 Sec. (12.2-14.9) H 11/23/19 03:47 INR 1.36 (0.87-1.13) H 11/23/19 03:47 APTT 128.2 Sec. (24.2-36.6) H* 11/23/19 03:47 Heparin Anti-Xa Level 0.31 U.I./ml (0.3-0.7) 11/23/19 09:03 ABG pH 7.429 pH Units (7.350-7.450) 01/09/20 08:51 ABG pCO2 39.1 mm Hg 01/09/20 08:51 ABG pO2 94.3 mm Hg (80.0-90.0) H 01/09/20 08:51 ABG HCO3 25.3 mmol/L (20.0-26.0) 01/09/20 08:51 ABG O2 Saturation 97.4 % (95.0-99.0) 01/09/20 08:51 ABG O2 Content 12.9 (0.0-44) 01/09/20 08:51 ABG Base Excess 1.0 mmol/L (-2.0-3.0) 01/09/20 08:51 ABG Hemoglobin 9.5 gm/dl (12.0-16.0) L 01/09/20 08:51 ABG Carboxyhemoglobin 1.3 % (0.0-5.0) 01/09/20 08:51 ABG Methemoglobin 0.4 % (0.0-1.5) 01/09/20 08:51 Oxyhemoglobin 95.7 % (95.0-99.0) 01/09/20 08:51 FiO2 35 % 01/09/20 08:51 Sodium 137 mmol/L (137-145) 02/17/20 07:57 Potassium 4.7 mmol/L (3.6-5.0) 02/17/20 07:57 Chloride 96.9 mmol/L (98-107) L 02/17/20 07:57 Carbon Dioxide 25 mmol/L (22-30) 02/17/20 07:57 Anion Gap 20 mmol/L 02/17/20 07:57 BUN 21 mg/dL (7-17) H 02/17/20 07:57 Creatinine 0.4 mg/dL (0.7-1.2) L 02/17/20 07:57 Estimated GFR > 60 ml/min 02/17/20 07:57 BUN/Creatinine Ratio 53 % 02/17/20 07:57 Glucose 113 mg/dL (65-100) H 02/17/20 07:57 POC Glucose 103 (70-105) 02/25/20 05:45 Lactic Acid 1.80 mmol/L (0.7-2.0) 11/25/19 05:05 Calcium 10.5 mg/dL (8.4-10.2) H 02/17/20 07:57 Ionized Calcium 4.5 mg/dL (4.8-5.6) L 11/23/19 06:32 Phosphorus 4.20 mg/dL (2.5-4.5) D 11/28/19 08:59 Magnesium 2.30 mg/dL (1.7-2.3) 11/29/19 13:41 Total Bilirubin 0.40 mg/dL (0.1-1.2) 12/13/19 07:48 AST 27 units/L (5-40) 12/13/19 07:48 ALT 26 units/L (7-56) 12/13/19 07:48 Alkaline Phosphatase 316 units/L (35-129) H 12/13/19 07:48 Ammonia 42.0 umol/L (25-60) 11/29/19 13:41 Total Creatine Kinase 139 units/L (30-135) H 11/22/19 23:27 CK-MB (CK-2) 8.3 ng/mL (0.0-4.0) H 11/22/19 23:27 CK-MB (CK-2) Rel Index 5.9 (0-4) H 11/22/19 23:27 Troponin T < 0.010 ng/mL (0.00-0.029) 11/22/19 23:27 Total Protein 6.8 g/dL (6.3-8.2) 12/13/19 07:48 Albumin 2.4 g/dL (3.9-5) L 12/13/19 07:48 Albumin/Globulin Ratio 0.5 % 12/13/19 07:48 Lipase 18 units/L (13-60) 11/23/19 00:34 Procalcitonin 1.09 ng/mL (<0.15) 11/23/19 04:53 TSH 1.010 mlU/mL (0.270-4.200) 02/12/20 07:36 Free T4 1.08 ng/dL (0.76-1.46) 02/12/20 07:36 Urine Color Yellow (Yellow) 12/16/19 Unknown Urine Turbidity Slightly-cloudy (Clear) 12/16/19 Unknown Urine pH 5.0 (5.0-7.0) 12/16/19 Unknown Ur Specific Samson 1.018 (1.003-1.030) 12/16/19 Unknown Urine Protein 30 mg/dl mg/dL (Negative) 12/16/19 Unknown Urine Glucose (UA) Neg mg/dL (Negative) 12/16/19 Unknown Urine Ketones Neg mg/dL (Negative) 12/16/19 Unknown Urine Blood Sm (Negative) 12/16/19 Unknown Urine Nitrite Neg (Negative) 12/16/19 Unknown Urine Bilirubin Neg (Negative) 12/16/19 Unknown Urine Urobilinogen < 2.0 mg/dL (<2.0) 12/16/19 Unknown Ur Leukocyte Esterase Neg (Negative) 12/16/19 Unknown Urine WBC (Auto) 6.0 /HPF (0.0-6.0) 12/16/19 Unknown Urine RBC (Auto) 9.0 /HPF (0.0-6.0) 12/16/19 Unknown U Epithel Cells (Auto) < 1.0 /HPF (0-13.0) 12/16/19 Unknown Urine Bacteria (Auto) 2+ /HPF (Negative) 11/22/19 23:17 Hyaline Casts 3 /LPF 12/16/19 Unknown Granular Casts 3 /LPF 12/16/19 Unknown Urine Mucus Few /HPF 12/16/19 Unknown Vancomycin Trough 33.8 ug/mL (5.0-20.0) H 12/21/19 08:56 Random Vancomycin 16.2 ug/mL (0-40.0) 12/24/19 04:31 Salicylates < 0.3 mg/dL (2.8-20.0) L 11/22/19 23:27 Urine Opiates Screen Presumptive negative 11/22/19 23:17 Urine Methadone Screen Presumptive negative 11/22/19 23:17 Acetaminophen < 5.0 ug/mL (10.0-30.0) L 11/22/19 23:27 Ur Barbiturates Screen Presumptive negative 11/22/19 23:17 Ur Phencyclidine Scrn Presumptive negative 11/22/19 23:17 Ur Amphetamines Screen Presumptive negative 11/22/19 23:17 U Benzodiazepines Scrn Presumptive negative 11/22/19 23:17 Urine Cocaine Screen Presumptive negative 11/22/19 23:17 U Marijuana (THC) Screen Presumptive negative 11/22/19 23:17 Drugs of Abuse Note Disclamer 11/22/19 23:17 Plasma/Serum Alcohol 0.08 % (0-0.07) H 11/22/19 23:27 Coronavirus (PCR) Negative (Negative) 02/05/20 07:50 Hepatitis A IgM Ab Non-reactive (NonReactive) 11/23/19 01:19 Hep Bs Antigen Non-reactive (Negative) 11/23/19 01:19 Hep B Core IgM Ab Non-reactive (NonReactive) 11/23/19 01:19 Hepatitis C Antibody Non-reactive (NonReactive) 11/23/19 01:19 Blood Type O POSITIVE 12/21/19 14:54 Antibody Screen Negative 12/21/19 14:54 Crossmatch See Detail 12/21/19 14:54 - Diagnostic Impressions Diagnostic Impressions: Echocardiogram 11/23/19 03:58 Transthoracic Echocardiogram Indication: Cardiac arrest BP: 131/89 HR: 115 Conclusions *The study quality is technically difficult. *Global left ventricular wall motion and contractility are within normal limits. *The estimated ejection fraction is 55-60%. *Abnormal left ventricular diastolic filling is observed, consistent with impaired relaxation. *There is no pericardial effusion. Findings Procedure Info: The study quality is technically difficult. The study was technically limited due to the patient's inability to lay in the left lateral decubitus position. Left Ventricle: The left ventricular chamber size is normal. There is no left ventricular hypertrophy. Global left ventricular wall motion and contractility are within normal limits. Global left ventricular systolic function is normal. The estimated ejection fraction is 55-60%. Abnormal left ventricular diastolic filling is observed, consistent with impaired relaxation. Left Atrium: The left atrial chamber size is normal. Aortic Valve: The aortic valve leaflets are mildly thickened. Mitral Valve: The mitral valve leaflets are mildly thickened. There is no evidence of mitral regurgitation. Tricuspid Valve: The tricuspid valve leaflets are normal. There is trace tricuspid regurgitation. The right ventricular systolic pressure is calculated at 33 mmHg. Pulmonic Valve: The pulmonic valve appears normal. Pericardium: The pericardium appears normal. There is no pericardial effusion. Aorta: The aorta appears normal. Venous: The inferior vena cava appears normal in size. Measurements Chambers 2D Name Value Normal Range IVSd (2D) 0.94 cm (0.6 - 1.1) LVPWd (2D) 0.81 cm (0.6 - 1.1) LVIDd (2D) 3.6 cm (3.7 - 5.6) LVIDs (2D) 2.27 cm (2 - 3.8) LV FS (2D) 36.93 % - EF Teichholz (2D) 67.76 % - Ao root diameter (2D) 3.03 cm (2 - 3.7) Volumes/Mass Name Value Normal Range LA ESV SP 4CH (A/L) 16.89 ml - LA ESV SP 4CH (MOD) 15.52 ml - Diastolic/Systolic Function Name Value Normal Range MV E-wave Vmax 0.55 m/sec - MV deceleration time 200.89 msec - MV A-wave Vmax 0.68 m/sec - MV E:A ratio 0.82 ratio - Aortic Valve Name Value Normal Range AV Vmax 1.1 m/sec - AV VTI 15.9 cm - AV peak gradient 4.86 mmHg - AV mean gradient 2.59 mmHg - LVOT diameter 2 cm - LVOT Vmax 1.03 m/sec - LVOT VTI 15.87 cm - LVOT peak gradient 4.24 mmHg - LVOT mean gradient 2.41 mmHg - SV LVOT 49.77 ml - JOSÉ MIGUEL (continuity Vmax) 2.93 cm2 - JOSÉ MIGUEL (continuity VTI) 3.13 cm2 - Tricuspid Valve Name Value Normal Range TR Vmax 2.74 m/sec - TR peak gradient 303 mmHg - RAP 3 mmHg - RVSP 33 mmHg - IVC diameter 1.77 cm (1.2 - 2.3) Pulmonic Valve/Qp:Qs Name Value Normal Range PV Vmax 0.77 m/sec - PV peak gradient 2.4 mmHg - PV acceleration time 114.18 msec - Echocardiogram Limited Views 12/17/19 14:53 Transthoracic Echocardiogram Indication: R/O Vegetations BP: 144/83 HR: 133 Conclusions *Global left ventricular systolic function is mildly decreased. *The estimated ejection fraction is 45-50%. *A trivial pericardial effusion is visualized. Findings Left Ventricle: The left ventricular chamber size is normal. Global left ventricular systolic function is mildly decreased. The estimated ejection fraction is 45-50%. Left Atrium: The left atrial chamber size is normal. Right Ventricle: The right ventricular cavity size is normal. Right Atrium: The right atrial cavity size is normal. Aortic Valve: The aortic valve is not well visualized. There is no evidence of aortic regurgitation. Mitral Valve: The mitral valve leaflets are mildly thickened. There is trace of mitral regurgitation. Tricuspid Valve: The tricuspid valve leaflets are mildly thickened. There is trace tricuspid regurgitation. The right ventricular systolic pressure is calculated at 29 mmHg. Pulmonic Valve: The pulmonic valve is not well visualized. There is no evidence of pulmonic regurgitation. Pericardium: A trivial pericardial effusion is visualized. Aorta: There is no dilatation of the ascending aorta. There is no dilatation of the aortic root. Venous: The inferior vena cava appears normal in size. There is a greater than 50% respiratory change in the inferior vena cava dimension. Measurements Chambers 2D Name Value Normal Range IVSd (2D) 0.83 cm (0.6 - 1.1) LVPWd (2D) 0.98 cm (0.6 - 1.1) LVIDd (2D) 3.71 cm (3.7 - 5.6) LVIDs (2D) 2.93 cm (2 - 3.8) LV FS (2D) 21.12 % - EF Teichholz (2D) 43.71 % - Ao root diameter (2D) 3.02 cm (2 - 3.7) Volumes/Mass Name Value Normal Range LA ESV SP 4CH (A/L) 36.8 ml - LA ESV SP 2CH (A/L) 45.89 ml - LA ESV BP (A/L) 42.35 ml - LA ESV BP (A/L) index 26.63 ml/m2 - LA ESV SP 4CH (MOD) 34.42 ml - LA ESV SP 2CH (MOD) 44.21 ml - LA ESV BP (MOD) 39.82 ml - LA ESV BP (MOD) index 25.05 ml/m2 - Aortic Valve Name Value Normal Range LVOT diameter 1.63 cm - Tricuspid Valve Name Value Normal Range TR Vmax 2.56 m/sec - TR peak gradient 26 mmHg - RAP 3 mmHg - RVSP 29 mmHg - IVC diameter 1.83 cm (1.2 - 2.3) Dela Cruz/IV: Voiding Method Incontinent IV Catheter Type [Forearm] Peripheral IV IV Catheter Type [Left Forearm INT / Saline Lock ] IV Catheter Type [Right INT / Saline Lock Antecubital] IV Catheter Type [Right Hand] Peripheral IV IV Catheter Type [Right Wrist] Peripheral IV IV Catheter Type [Left Wrist] Peripheral IV IV Catheter Type [Left Peripheral IV Antecubital] IV Catheter Type [Right INT / Saline Lock Forearm] IV Catheter Type [Left Hand] Peripheral IV Active Medications - Current Medications Current Medications: Generic Name Dose Route Start Last Admin Trade Name Freq PRN Reason Stop Dose Admin Acetaminophen 650 mg 12/06/19 10:25 02/24/20 21:11 Tylenol FEEDTUBE 650 mg Q6H PRN Administration TEMP >/=100.3 Acetylcysteine 200 mg 02/16/20 20:00 02/25/20 08:23 Mucomyst Inhalation INHALATION 200 mg Q12HRT LUCHO Administration Alprazolam 1 mg 02/21/20 18:24 02/25/20 05:09 Xanax PO 1 mg Q8H PRN Administration Anxiety Lipase/Protease/Amylase 1 each 11/23/19 11:[address] 10,500 Unit FEEDTUBE PRN PRN Use w/ sod bicarb for FT Bisacodyl 10 mg 02/06/20 13:57 Dulcolax TX QDAY PRN Constipation unrelieved by MOM Docusate Sodium 100 mg 02/18/20 22:00 02/24/20 21:11 Colace FEEDTUBE 100 mg BID LUCHO Administration Glycopyrrolate 2 mg 12/31/19 20:00 02/24/20 21:13 Robinul PO 2 mg TID LUCHO Administration Haloperidol Lactate 2 mg 02/21/20 10:51 02/23/20 21:05 Haldol FEEDTUBE 2 mg Q6H PRN Administration Agitation Hydralazine HCl 10 mg 11/24/19 00:45 12/18/19 13:25 Apresoline IV 10 mg Q6H PRN Administration SBP > 160 Hydroxyzine Pamoate 25 mg 12/06/19 10:00 02/24/20 21:13 Vistaril PO 25 mg BID LUCHO Administration Lansoprazole 30 mg 11/27/19 10:00 02/24/20 10:14 Prevacid Solutab FEEDTUBE 30 mg QDAY LUCHO Administration Levalbuterol HCl 0.63 mg 02/17/20 00:00 02/25/20 08:23 Xopenex IH 0.63 mg Q8HRT ULCHO Administration Levetiracetam 500 mg 11/29/19 10:00 02/24/20 21:11 Keppra PO 500 mg BID LUCHO Administration Metoprolol Tartrate 12.5 mg 02/23/20 22:00 02/24/20 21:42 Metoprolol PO 12.5 mg BID LUCHO Administration Mirtazapine 30 mg 12/06/19 10:00 02/24/20 10:14 Remeron PO 30 mg DAILY LUCHO Administration Nicotine 21 mg 02/16/20 13:00 02/24/20 10:14 Habitrol TD 21 mg QDAY LUCHO Administration Ondansetron HCl 4 mg 12/10/19 07:53 02/25/20 02:51 Zofran IV 4 mg Q4H PRN Administration Nausea And Vomiting Polyethylene Glycol 17 gm 02/06/20 13:57 Miralax 3350 PO QDAY PRN Constipation Quetiapine Fumarate 100 mg 01/09/20 21:41 02/24/20 21:11 Seroquel FEEDTUBE 100 mg QHS LUCHO Administration Scopolamine 1 each 02/08/20 15:00 02/23/20 14:36 Transderm-Scop TD 1 each Q3D ULCHO Administration Sertraline HCl 25 mg 01/01/20 10:00 02/24/20 10:13 Zoloft PO 25 mg QDAY LUCHO Administration Simple Syrup 15 ml 11/23/19 11:50 Simple Syrup FEEDTUBE PRN PRN Hypoglycemia BG<70 Simple Syrup 30 ml 11/23/19 11:50 Simple Syrup FEEDTUBE PRN PRN Hypoglycemia Sodium Bicarbonate 325 mg 11/23/19 11:50 Sodium Bicarbonate FEEDTUBE PRN PRN For Clogged Feeding Tube Nutrition/Malnutrition Assess - Dietary Evaluation Nutrition/Malnutrition Findings: Nutrition Notes Start: 11/23/19 11:29 Freq: Status: Active Protocol: Document 02/20/20 11:56 LM (Rec: 02/20/20 12:10 LM [email or web address]) Nutrition Notes Initial or Follow up Reassessment Current Diagnosis Hypertension Other Pertinent Diagnosis Cardaic arrest, ETOH dependence, UTI Current Diet Jevity 1.2 at 60ml/hr Labs/Tests Reviewed Pertinent Medications Reviewed Height 5 ft 6 in Weight 45.6 kg [place] Body Weight (kg) 59.09 BMI 16.2 Subjective/Other Information TF running at goal. Percent of energy/protein needs met: 99%/100% Burn Absent Trauma Absent GI Symptoms None Current % PO Negligible Interpretation of Weight Loss (severe) >2% in 1 week Muscle Mass Mild Depletion (non-severe) #2 Nutrition Diagnosis Malnutrition Diagnosis Progress(for reassessment Continues documentation) #1 Nutrition Diagnosis Inadequate oral intake Diagnosis Progress(for reassessment Continues documentation) Is patient on ventilator? No Is Patient Ambulatory and/or Out of Bed No REE-([place] or-confined to bed) 1291.932 Kcal/Kg value to use for calculation 38 Approximate Energy Requirements Using 1733 kcal/Kg Calculation Used for Recommendations Kcal/kg Additional Notes Protein: 60-75g (1.2-1.5g/kg) Fluid: 1 ml/kcal Nutrition Intervention Change Diet Order: Continue TF Nutrition Support: Change to Jevity 1.2 at 60ml/ hr Flush 100ml q4h Kcal 1,728 Protein (gm) 80 Fluid (mL) 1,162 Goal #1 TF tolerance Goal #2 Meet at least 80% of energy and protein needs via TF Anticipated Discharge Needs: TF Follow-Up By: 02/26/20 Additional Comments F/U for TF tolerance, wt
[2020-02-25] MEDS: GLYCOPYRROLATE 1 MG TAB PO SCH ×3 (10:44→22:12)
[2020-02-25] MEDS: DOCUSATE SODIUM 100 MG/10 ML ORAL LIQD FEEDTUBE SCH ×2 (10:45→22:14)
[2020-02-25] MEDS: SERTRALINE 50 MG TAB PO SCH (10:46)
[2020-02-25] MEDS: NICOTINE 21 MG/24 HR PATCH TD SCH (10:46)
[2020-02-25] MEDS: levETIRAcetam 500 MG/5 ML ORAL LIQD PO SCH ×2 (10:46→22:13)
[2020-02-25] MEDS: MIRTAZAPINE 30 MG TAB PO SCH (10:47)
[2020-02-25] MEDS: hydrOXYzine PAMOATE 25 MG CAP PO SCH ×2 (10:47→22:12)
[2020-02-25] MEDS: METOPROLOL TARTRATE 25 MG TAB PO SCH ×2 (10:48→22:12)
[2020-02-25] MEDS: LANSOPRAZOLE 30 MG SOLUTAB FEEDTUBE SCH (10:48)
--- NOTE | 2020-02-25 19:20 | Progress Note ---
Assessment and Plan Assessment and plan: Coronavirus PCR; negative x 2 02/17: Patient pending placement, Following extubation, the patient has remained with AMS, on restraints, no new fever but tachycardia, still requiring aggressive pulmonary toilet. 02/19; Pseudomonas sputum cultures, colonization/tracheostomy tube No treatment needed 02/21/2020; clinically no change, continue current management Awaiting placement 02/22/20 ; patient is slightly restless and agitated Will try Ativan as needed, awaiting placement 02/23/2020; sinus tachycardia, mild agitation Patient started on Ativan as needed, I will add low-dose of metoprolol Monitor closely 02/24/2020; clinically no change, Awaiting placement 02/25/2020; awaiting placement --Anoxic brain injury: suspected CT head: No acute abnormality. EEG ordered showed Generalized slowing. No seizures or epileptiform activity. Patient now opening her eyes, can speak and able to follow minor command by nodding head --Acute Respiratory failure with hypoxia:s/p Tracheostomy --Positive sputum cultures; colonization tracheostomy, No need to treat per ID --Status post cardiac arrest s/p intubation, s/p trach and PEG on 12/12 with mechanical ventilation, now on T-piece CTA was done and negative for PE, Echo quality is poor, showed diastolic dysfunction --Oropharyngeal dysphagia s/p PEG --Persistent Tachycardia --BHAVANA / vasomotor nephropathy; resolved --Anemia, microcytic Status post 3 units PRBC transfusion, H&H low stable --Acute metabolic encephalopathy/toxic encephalopathy multifactorial, supportive care --Hyperammonemia -resolved --Metabolic Acidosis Alcohol ketoacidosis vs hypoprofusion Continue to monitor --Acute cystitis --ELevated LFTs, stable now due to ischemic hepatitis. --Leucocytosis with sepsis Source MRSA bacteremia and MSSA pneumonia. UA showed pyuria. RUQ US showed no ascites. Repeat TTE negative for vegetation. Completed 7 days of Ceftriaxone on 11/29/2019. Treated with Abx vancomycin 1 gm IV q 12 hour total 2 week till 12/30/2019 Resolved --MSSA pneumonia: Status post vancomycin till 12/30/2019 --ALcohol USe Disorder given ongoing Alcohol use almost daily, s/p IV Thiamine monitor --Severe hypokalemia -Repleted --Seizure disorder: treat with Keppra --H. Influenzae, tracheobronchitis, treated with abx --Moderate to severe fecal impaction - will add stool softner --Anxiety disorder: Psych consulted --DNR CODE STATUS Disposition: prognosis guarded. PT recommended subacute rehab, discharge pending on placement. negative for COVID 19 Disposition ;awaiting Placement to SNF History Interval history: Patient seen and examined at the bedside Patient's chart and medications reviewed Patient remains chronically ill Trach and PEG, noncommunicative Vital signs noted Hospitalist Physical - Constitutional Vitals: Temp Pulse Resp BP Pulse Ox 97.4 F L 110 H 18 122/73 98 02/25/20 15:11 02/25/20 15:11 02/25/20 15:11 02/25/20 15:11 02/25/20 15:11 General appearance: Present: mild distress, cachectic, disheveled, other (Noncommunicative) - EENT Eyes: Present: PERRL, EOM intact - Neck Neck: Present: supple, normal ROM - Respiratory Respiratory effort: normal Respiratory: bilateral: diminished, rhonchi, negative: rales, wheezing - Cardiovascular Rhythm: regular Heart Sounds: Present: S1 & S2 - Extremities Extremities: no ischemia, No edema - Abdominal General gastrointestinal: soft, non-tender, non-distended, normal bowel sounds, other (PEG in place) - Integumentary Integumentary: Present: clear, warm - Psychiatric Psychiatric: other (Noncommunicative) - Neurologic Neurologic: other (Noncommunicative) HEART Score - HEART Score Troponin: Troponin T < 0.010 ng/mL (0.00-0.029) 11/22/19 23:27 Results - Labs CBC & Chem 7: 02/17/20 07:57 02/17/20 07:57 Labs: Laboratory Last Values WBC 12.6 K/mm3 (4.5-11.0) H 02/17/20 07:57 RBC 3.52 M/mm3 (3.65-5.03) L 02/17/20 07:57 Hgb 10.2 gm/dl (10.1-14.3) 02/17/20 07:57 Hct 30.8 % (30.3-42.9) 02/17/20 07:57 MCV 88 fl (79-97) 02/17/20 07:57 MCH 29 pg (28-32) 02/17/20 07:57 MCHC 33 % (30-34) 02/17/20 07:57 RDW 15.3 % (13.2-15.2) H 02/17/20 07:57 Plt Count 643 K/mm3 (140-440) H 02/17/20 07:57 Lymph % (Auto) 21.3 % (13.4-35.0) 02/17/20 07:57 [place] % (Auto) 8.0 % (0.0-7.3) H 02/17/20 07:57 Eos % (Auto) 2.5 % (0.0-4.3) 02/17/20 07:57 Baso % (Auto) 0.5 % (0.0-1.8) 02/17/20 07:57 Lymph # 2.7 K/mm3 (1.2-5.4) 02/17/20 07:57 [place] # 1.0 K/mm3 (0.0-0.8) H 02/17/20 07:57 Eos # 0.3 K/mm3 (0.0-0.4) 02/17/20 07:57 Baso # 0.1 K/mm3 (0.0-0.1) 02/17/20 07:57 Add Manual Diff Complete 12/25/19 03:47 Total Counted 200 12/25/19 03:47 Seg Neutrophils % 67.7 % (40.0-70.0) 02/17/20 07:57 Seg Neuts % (Manual) 97.5 % (40.0-70.0) H 12/25/19 03:47 Band Neutrophils % 0 % 12/25/19 03:47 Lymphocytes % (Manual) 1.0 % (13.4-35.0) L 12/25/19 03:47 Reactive Lymphs % (Man) 0 % 12/25/19 03:47 Monocytes % (Manual) 1.5 % (0.0-7.3) 12/25/19 03:47 Eosinophils % (Manual) 0 % (0.0-4.3) 12/25/19 03:47 Basophils % (Manual) 0 % (0.0-1.8) 12/25/19 03:47 Metamyelocytes % 0 % 12/25/19 03:47 Myelocytes % 0 % 12/25/19 03:47 Promyelocytes % 0 % 12/25/19 03:47 Blast Cells % 0 % 12/25/19 03:47 Nucleated RBC % Not Reportable 12/25/19 03:47 Seg Neutrophils # 8.5 K/mm3 (1.8-7.7) H 02/17/20 07:57 Seg Neutrophils # Man 35.3 K/mm3 (1.8-7.7) H 12/25/19 03:47 Band Neutrophils # 0.0 K/mm3 12/25/19 03:47 Lymphocytes # (Manual) 0.4 K/mm3 (1.2-5.4) L 12/25/19 03:47 Abs React Lymphs (Man) 0.0 K/mm3 12/25/19 03:47 Monocytes # (Manual) 0.5 K/mm3 (0.0-0.8) 12/25/19 03:47 Eosinophils # (Manual) 0.0 K/mm3 (0.0-0.4) 12/25/19 03:47 Basophils # (Manual) 0.0 K/mm3 (0.0-0.1) 12/25/19 03:47 Metamyelocytes # 0.0 K/mm3 12/25/19 03:47 Myelocytes # 0.0 K/mm3 12/25/19 03:47 Promyelocytes # 0.0 K/mm3 12/25/19 03:47 Blast Cells # 0.0 K/mm3 12/25/19 03:47 Pathologist Review 12/13/19 07:48 WBC Morphology Not Reportable 12/25/19 03:47 Hypersegmented Neuts Not Reportable 12/25/19 03:47 Hyposegmented Neuts Not Reportable 12/25/19 03:47 Hypogranular Neuts Not Reportable 12/25/19 03:47 Smudge Cells Not Reportable 12/25/19 03:47 Toxic Granulation Not Reportable 12/25/19 03:47 Toxic Vacuolation Not Reportable 12/25/19 03:47 Dohle Bodies Not Reportable 12/25/19 03:47 Pelger-Huet Anomaly Not Reportable 12/25/19 03:47 Dominique Rods Not Reportable 12/25/19 03:47 Platelet Estimate Consistent w auto 12/25/19 03:47 Clumped Platelets Not Reportable 12/25/19 03:47 Plt Clumps, EDTA Not Reportable 12/25/19 03:47 Large Platelets Not Reportable 12/25/19 03:47 Giant Platelets Not Reportable 12/25/19 03:47 Platelet Satelliting Not Reportable 12/25/19 03:47 Plt Morphology Comment Not Reportable 12/25/19 03:47 RBC Morphology Not Reportable 12/25/19 03:47 Dimorphic RBCs Not Reportable 12/25/19 03:47 Polychromasia Not Reportable 12/25/19 03:47 Hypochromasia Not Reportable 12/25/19 03:47 Poikilocytosis Not Reportable 12/25/19 03:47 Anisocytosis 1+ 12/25/19 03:47 Microcytosis Not Reportable 12/25/19 03:47 Macrocytosis Not Reportable 12/25/19 03:47 Spherocytes Not Reportable 12/25/19 03:47 Pappenheimer Bodies Not Reportable 12/25/19 03:47 Sickle Cells Not Reportable 12/25/19 03:47 Target Cells Not Reportable 12/25/19 03:47 Tear Drop Cells Not Reportable 12/25/19 03:47 Ovalocytes Not Reportable 12/25/19 03:47 Helmet Cells Not Reportable 12/25/19 03:47 Frias-Webb Bodies Not Reportable 12/25/19 03:47 Troy Rings Not Reportable 12/25/19 03:47 Bartlett Cells Not Reportable 12/25/19 03:47 Bite Cells Not Reportable 12/25/19 03:47 Crenated Cell Not Reportable 12/25/19 03:47 Elliptocytes Not Reportable 12/25/19 03:47 Acanthocytes (Spur) Not Reportable 12/25/19 03:47 Rouleaux Not Reportable 12/25/19 03:47 Hemoglobin C Crystals Not Reportable 12/25/19 03:47 Schistocytes Not Reportable 12/25/19 03:47 Malaria parasites Not Reportable 12/25/19 03:47 Gregg Bodies Not Reportable 12/25/19 03:47 Hem Pathologist Commnt No 12/25/19 03:47 PT 17.0 Sec. (12.2-14.9) H 11/23/19 03:47 INR 1.36 (0.87-1.13) H 11/23/19 03:47 APTT 128.2 Sec. (24.2-36.6) H* 11/23/19 03:47 Heparin Anti-Xa Level 0.31 U.I./ml (0.3-0.7) 11/23/19 09:03 ABG pH 7.429 pH Units (7.350-7.450) 01/09/20 08:51 ABG pCO2 39.1 mm Hg 01/09/20 08:51 ABG pO2 94.3 mm Hg (80.0-90.0) H 01/09/20 08:51 ABG HCO3 25.3 mmol/L (20.0-26.0) 01/09/20 08:51 ABG O2 Saturation 97.4 % (95.0-99.0) 01/09/20 08:51 ABG O2 Content 12.9 (0.0-44) 01/09/20 08:51 ABG Base Excess 1.0 mmol/L (-2.0-3.0) 01/09/20 08:51 ABG Hemoglobin 9.5 gm/dl (12.0-16.0) L 01/09/20 08:51 ABG Carboxyhemoglobin 1.3 % (0.0-5.0) 01/09/20 08:51 ABG Methemoglobin 0.4 % (0.0-1.5) 01/09/20 08:51 Oxyhemoglobin 95.7 % (95.0-99.0) 01/09/20 08:51 FiO2 35 % 01/09/20 08:51 Sodium 137 mmol/L (137-145) 02/17/20 07:57 Potassium 4.7 mmol/L (3.6-5.0) 02/17/20 07:57 Chloride 96.9 mmol/L (98-107) L 02/17/20 07:57 Carbon Dioxide 25 mmol/L (22-30) 02/17/20 07:57 Anion Gap 20 mmol/L 02/17/20 07:57 BUN 21 mg/dL (7-17) H 02/17/20 07:57 Creatinine 0.4 mg/dL (0.7-1.2) L 02/17/20 07:57 Estimated GFR > 60 ml/min 02/17/20 07:57 BUN/Creatinine Ratio 53 % 02/17/20 07:57 Glucose 113 mg/dL (65-100) H 02/17/20 07:57 POC Glucose 120 (70-105) H 02/25/20 18:24 Lactic Acid 1.80 mmol/L (0.7-2.0) 11/25/19 05:05 Calcium 10.5 mg/dL (8.4-10.2) H 02/17/20 07:57 Ionized Calcium 4.5 mg/dL (4.8-5.6) L 11/23/19 06:32 Phosphorus 4.20 mg/dL (2.5-4.5) D 11/28/19 08:59 Magnesium 2.30 mg/dL (1.7-2.3) 11/29/19 13:41 Total Bilirubin 0.40 mg/dL (0.1-1.2) 12/13/19 07:48 AST 27 units/L (5-40) 12/13/19 07:48 ALT 26 units/L (7-56) 12/13/19 07:48 Alkaline Phosphatase 316 units/L (35-129) H 12/13/19 07:48 Ammonia 42.0 umol/L (25-60) 11/29/19 13:41 Total Creatine Kinase 139 units/L (30-135) H 11/22/19 23:27 CK-MB (CK-2) 8.3 ng/mL (0.0-4.0) H 11/22/19 23:27 CK-MB (CK-2) Rel Index 5.9 (0-4) H 11/22/19 23:27 Troponin T < 0.010 ng/mL (0.00-0.029) 11/22/19 23:27 Total Protein 6.8 g/dL (6.3-8.2) 12/13/19 07:48 Albumin 2.4 g/dL (3.9-5) L 12/13/19 07:48 Albumin/Globulin Ratio 0.5 % 12/13/19 07:48 Lipase 18 units/L (13-60) 11/23/19 00:34 Procalcitonin 1.09 ng/mL (<0.15) 11/23/19 04:53 TSH 1.010 mlU/mL (0.270-4.200) 02/12/20 07:36 Free T4 1.08 ng/dL (0.76-1.46) 02/12/20 07:36 Urine Color Yellow (Yellow) 12/16/19 Unknown Urine Turbidity Slightly-cloudy (Clear) 12/16/19 Unknown Urine pH 5.0 (5.0-7.0) 12/16/19 Unknown Ur Specific [place] 1.018 (1.003-1.030) 12/16/19 Unknown Urine Protein 30 mg/dl mg/dL (Negative) 12/16/19 Unknown Urine Glucose (UA) Neg mg/dL (Negative) 12/16/19 Unknown Urine Ketones Neg mg/dL (Negative) 12/16/19 Unknown Urine Blood Sm (Negative) 12/16/19 Unknown Urine Nitrite Neg (Negative) 12/16/19 Unknown Urine Bilirubin Neg (Negative) 12/16/19 Unknown Urine Urobilinogen < 2.0 mg/dL (<2.0) 12/16/19 Unknown Ur Leukocyte Esterase Neg (Negative) 12/16/19 Unknown Urine WBC (Auto) 6.0 /HPF (0.0-6.0) 12/16/19 Unknown Urine RBC (Auto) 9.0 /HPF (0.0-6.0) 12/16/19 Unknown U Epithel Cells (Auto) < 1.0 /HPF (0-13.0) 12/16/19 Unknown Urine Bacteria (Auto) 2+ /HPF (Negative) 11/22/19 23:17 Hyaline Casts 3 /LPF 12/16/19 Unknown Granular Casts 3 /LPF 12/16/19 Unknown Urine Mucus Few /HPF 12/16/19 Unknown Vancomycin Trough 33.8 ug/mL (5.0-20.0) H 12/21/19 08:56 Random Vancomycin 16.2 ug/mL (0-40.0) 12/24/19 04:31 Salicylates < 0.3 mg/dL (2.8-20.0) L 11/22/19 23:27 Urine Opiates Screen Presumptive negative 11/22/19 23:17 Urine Methadone Screen Presumptive negative 11/22/19 23:17 Acetaminophen < 5.0 ug/mL (10.0-30.0) L 11/22/19 23:27 Ur Barbiturates Screen Presumptive negative 11/22/19 23:17 Ur Phencyclidine Scrn Presumptive negative 11/22/19 23:17 Ur Amphetamines Screen Presumptive negative 11/22/19 23:17 U Benzodiazepines Scrn Presumptive negative 11/22/19 23:17 Urine Cocaine Screen Presumptive negative 11/22/19 23:17 U Marijuana (THC) Screen Presumptive negative 11/22/19 23:17 Drugs of Abuse Note Disclamer 11/22/19 23:17 Plasma/Serum Alcohol 0.08 % (0-0.07) H 11/22/19 23:27 Coronavirus (PCR) Negative (Negative) 02/05/20 07:50 Hepatitis A IgM Ab Non-reactive (NonReactive) 11/23/19 01:19 Hep Bs Antigen Non-reactive (Negative) 11/23/19 01:19 Hep B Core IgM Ab Non-reactive (NonReactive) 11/23/19 01:19 Hepatitis C Antibody Non-reactive (NonReactive) 11/23/19 01:19 Blood Type O POSITIVE 12/21/19 14:54 Antibody Screen Negative 12/21/19 14:54 Crossmatch See Detail 12/21/19 14:54 - Diagnostic Impressions Diagnostic Impressions: Echocardiogram 11/23/19 03:58 Transthoracic Echocardiogram Indication: Cardiac arrest BP: 131/89 HR: 115 Conclusions *The study quality is technically difficult. *Global left ventricular wall motion and contractility are within normal limits. *The estimated ejection fraction is 55-60%. *Abnormal left ventricular diastolic filling is observed, consistent with impaired relaxation. *There is no pericardial effusion. Findings Procedure Info: The study quality is technically difficult. The study was technically limited due to the patient's inability to lay in the left lateral decubitus position. Left Ventricle: The left ventricular chamber size is normal. There is no left ventricular hypertrophy. Global left ventricular wall motion and contractility are within normal limits. Global left ventricular systolic function is normal. The estimated ejection fraction is 55-60%. Abnormal left ventricular diastolic filling is observed, consistent with impaired relaxation. Left Atrium: The left atrial chamber size is normal. Aortic Valve: The aortic valve leaflets are mildly thickened. Mitral Valve: The mitral valve leaflets are mildly thickened. There is no evidence of mitral regurgitation. Tricuspid Valve: The tricuspid valve leaflets are normal. There is trace tricuspid regurgitation. The right ventricular systolic pressure is calculated at 33 mmHg. Pulmonic Valve: The pulmonic valve appears normal. Pericardium: The pericardium appears normal. There is no pericardial effusion. Aorta: The aorta appears normal. Venous: The inferior vena cava appears normal in size. Measurements Chambers 2D Name Value Normal Range IVSd (2D) 0.94 cm (0.6 - 1.1) LVPWd (2D) 0.81 cm (0.6 - 1.1) LVIDd (2D) 3.6 cm (3.7 - 5.6) LVIDs (2D) 2.27 cm (2 - 3.8) LV FS (2D) 36.93 % - EF Teichholz (2D) 67.76 % - Ao root diameter (2D) 3.03 cm (2 - 3.7) Volumes/Mass Name Value Normal Range LA ESV SP 4CH (A/L) 16.89 ml - LA ESV SP 4CH (MOD) 15.52 ml - Diastolic/Systolic Function Name Value Normal Range MV E-wave Vmax 0.55 m/sec - MV deceleration time 200.89 msec - MV A-wave Vmax 0.68 m/sec - MV E:A ratio 0.82 ratio - Aortic Valve Name Value Normal Range AV Vmax 1.1 m/sec - AV VTI 15.9 cm - AV peak gradient 4.86 mmHg - AV mean gradient 2.59 mmHg - LVOT diameter 2 cm - LVOT Vmax 1.03 m/sec - LVOT VTI 15.87 cm - LVOT peak gradient 4.24 mmHg - LVOT mean gradient 2.41 mmHg - SV LVOT 49.77 ml - JOSÉ MIGUEL (continuity Vmax) 2.93 cm2 - JOSÉ MIGUEL (continuity VTI) 3.13 cm2 - Tricuspid Valve Name Value Normal Range TR Vmax 2.74 m/sec - TR peak gradient 303 mmHg - RAP 3 mmHg - RVSP 33 mmHg - IVC diameter 1.77 cm (1.2 - 2.3) Pulmonic Valve/Qp:Qs Name Value Normal Range PV Vmax 0.77 m/sec - PV peak gradient 2.4 mmHg - PV acceleration time 114.18 msec - Echocardiogram Limited Views 03/30/20 14:53 Transthoracic Echocardiogram Indication: R/O Vegetations BP: 144/83 HR: 133 Conclusions *Global left ventricular systolic function is mildly decreased. *The estimated ejection fraction is 45-50%. *A trivial pericardial effusion is visualized. Findings Left Ventricle: The left ventricular chamber size is normal. Global left ventricular systolic function is mildly decreased. The estimated ejection fraction is 45-50%. Left Atrium: The left atrial chamber size is normal. Right Ventricle: The right ventricular cavity size is normal. Right Atrium: The right atrial cavity size is normal. Aortic Valve: The aortic valve is not well visualized. There is no evidence of aortic regurgitation. Mitral Valve: The mitral valve leaflets are mildly thickened. There is trace of mitral regurgitation. Tricuspid Valve: The tricuspid valve leaflets are mildly thickened. There is trace tricuspid regurgitation. The right ventricular systolic pressure is calculated at 29 mmHg. Pulmonic Valve: The pulmonic valve is not well visualized. There is no evidence of pulmonic regurgitation. Pericardium: A trivial pericardial effusion is visualized. Aorta: There is no dilatation of the ascending aorta. There is no dilatation of the aortic root. Venous: The inferior vena cava appears normal in size. There is a greater than 50% respiratory change in the inferior vena cava dimension. Measurements Chambers 2D Name Value Normal Range IVSd (2D) 0.83 cm (0.6 - 1.1) LVPWd (2D) 0.98 cm (0.6 - 1.1) LVIDd (2D) 3.71 cm (3.7 - 5.6) LVIDs (2D) 2.93 cm (2 - 3.8) LV FS (2D) 21.12 % - EF Teichholz (2D) 43.71 % - Ao root diameter (2D) 3.02 cm (2 - 3.7) Volumes/Mass Name Value Normal Range LA ESV SP 4CH (A/L) 36.8 ml - LA ESV SP 2CH (A/L) 45.89 ml - LA ESV BP (A/L) 42.35 ml - LA ESV BP (A/L) index 26.63 ml/m2 - LA ESV SP 4CH (MOD) 34.42 ml - LA ESV SP 2CH (MOD) 44.21 ml - LA ESV BP (MOD) 39.82 ml - LA ESV BP (MOD) index 25.05 ml/m2 - Aortic Valve Name Value Normal Range LVOT diameter 1.63 cm - Tricuspid Valve Name Value Normal Range TR Vmax 2.56 m/sec - TR peak gradient 26 mmHg - RAP 3 mmHg - RVSP 29 mmHg - IVC diameter 1.83 cm (1.2 - 2.3) [place]/IV: Voiding Method Incontinent IV Catheter Type [Forearm] Peripheral IV IV Catheter Type [Left Forearm INT / Saline Lock ] IV Catheter Type [Right INT / Saline Lock Antecubital] IV Catheter Type [Right Hand] Peripheral IV IV Catheter Type [Right Wrist] Peripheral IV IV Catheter Type [Left Wrist] Peripheral IV IV Catheter Type [Left Peripheral IV Antecubital] IV Catheter Type [Right INT / Saline Lock Forearm] IV Catheter Type [Left Hand] Peripheral IV Active Medications - Current Medications Current Medications: Generic Name Dose Route Start Last Admin Trade Name Freq PRN Reason Stop Dose Admin Acetaminophen 650 mg 12/06/19 10:25 02/24/20 21:11 Tylenol FEEDTUBE 650 mg Q6H PRN Administration TEMP >/=100.3 Acetylcysteine 200 mg 02/16/20 20:00 02/25/20 08:23 Mucomyst Inhalation INHALATION 200 mg Q12HRT LUCHO Administration Alprazolam 1 mg 02/21/20 18:24 02/25/20 16:48 Xanax PO 1 mg Q8H PRN Administration Anxiety Lipase/Protease/Amylase 1 each 11/23/19 11:[address] 10,500 Unit FEEDTUBE PRN PRN Use w/ sod bicarb for FT Bisacodyl 10 mg 02/06/20 13:57 Dulcolax PA QDAY PRN Constipation unrelieved by MOM Docusate Sodium 100 mg 02/18/20 22:00 02/25/20 10:45 Colace FEEDTUBE Not Given BID LUCHO Glycopyrrolate 2 mg 12/31/19 20:00 02/25/20 16:47 Robinul PO 2 mg TID LUCHO Administration Haloperidol Lactate 2 mg 02/21/20 10:51 02/23/20 21:05 Haldol FEEDTUBE 2 mg Q6H PRN Administration Agitation Hydralazine HCl 10 mg 11/24/19 00:45 12/18/19 13:25 Apresoline IV 10 mg Q6H PRN Administration SBP > 160 Hydroxyzine Pamoate 25 mg 12/06/19 10:00 02/25/20 10:47 Vistaril PO 25 mg BID LUCHO Administration Lansoprazole 30 mg 11/27/19 10:00 02/25/20 10:48 Prevacid Solutab FEEDTUBE 30 mg QDAY LUCHO Administration Levalbuterol HCl 0.63 mg 02/17/20 00:00 02/25/20 08:23 Xopenex IH 0.63 mg Q8HRT LUCHO Administration Levetiracetam 500 mg 11/29/19 10:00 02/25/20 10:46 Keppra PO 500 mg BID LUCHO Administration Metoprolol Tartrate 12.5 mg 02/23/20 22:00 02/25/20 10:48 Metoprolol PO 12.5 mg BID LUCHO Administration Mirtazapine 30 mg 12/06/19 10:00 02/25/20 10:47 Remeron PO 30 mg DAILY LUCHO Administration Nicotine 21 mg 02/16/20 13:00 02/25/20 10:46 Habitrol TD 21 mg QDAY LUCHO Administration Ondansetron HCl 4 mg 12/10/19 07:53 02/25/20 02:51 Zofran IV 4 mg Q4H PRN Administration Nausea And Vomiting Polyethylene Glycol 17 gm 02/06/20 13:57 Miralax 3350 PO QDAY PRN Constipation Quetiapine Fumarate 100 mg 01/09/20 21:41 02/24/20 21:11 Seroquel FEEDTUBE 100 mg QHS LUCHO Administration Scopolamine 1 each 02/08/20 15:00 02/23/20 14:36 Transderm-Scop TD 1 each Q3D LUCHO Administration Sertraline HCl 25 mg 01/01/20 10:00 02/25/20 10:46 Zoloft PO 25 mg QDAY LUCHO Administration Simple Syrup 15 ml 11/23/19 11:50 Simple Syrup FEEDTUBE PRN PRN Hypoglycemia BG<70 Simple Syrup 30 ml 11/23/19 11:50 Simple Syrup FEEDTUBE PRN PRN Hypoglycemia Sodium Bicarbonate 325 mg 11/23/19 11:50 Sodium Bicarbonate FEEDTUBE PRN PRN For Clogged Feeding Tube Nutrition/Malnutrition Assess - Dietary Evaluation Nutrition/Malnutrition Findings: Nutrition Notes Start: 11/23/19 11:29 Freq: Status: Active Protocol: Document 02/20/20 11:56 LM (Rec: 02/20/20 12:10 LM [email or web address]) Nutrition Notes Initial or Follow up Reassessment Current Diagnosis Hypertension Other Pertinent Diagnosis Cardaic arrest, ETOH dependence, UTI Current Diet Jevity 1.2 at 60ml/hr Labs/Tests Reviewed Pertinent Medications Reviewed Height 5 ft 6 in Weight 45.6 kg Lottie Body Weight (kg) 59.09 BMI 16.2 Subjective/Other Information TF running at goal. Percent of energy/protein needs met: 99%/100% Burn Absent Trauma Absent GI Symptoms None Current % PO Negligible Interpretation of Weight Loss (severe) >2% in 1 week Muscle Mass Mild Depletion (non-severe) #2 Nutrition Diagnosis Malnutrition Diagnosis Progress(for reassessment Continues documentation) #1 Nutrition Diagnosis Inadequate oral intake Diagnosis Progress(for reassessment Continues documentation) Is patient on ventilator? No Is Patient Ambulatory and/or Out of Bed No REE-([facility]-confined to bed) 1291.932 Kcal/Kg value to use for calculation 38 Approximate Energy Requirements Using 1733 kcal/Kg Calculation Used for Recommendations Kcal/kg Additional Notes Protein: 60-75g (1.2-1.5g/kg) Fluid: 1 ml/kcal Nutrition Intervention Change Diet Order: Continue TF Nutrition Support: Change to Jevity 1.2 at 60ml/ hr Flush 100ml q4h Kcal 1,728 Protein (gm) 80 Fluid (mL) 1,162 Goal #1 TF tolerance Goal #2 Meet at least 80% of energy and protein needs via TF Anticipated Discharge Needs: TF Follow-Up By: 02/26/20 Additional Comments F/U for TF tolerance, wt
[2020-02-25] MEDS: QUEtiapine 100 MG TAB FEEDTUBE SCH (22:12)
[2020-02-26] MEDS: LEVALBUTEROL 0.63 MG/3 ML NEBU IH SCH ×3 (00:55→17:44)
[2020-02-26] MEDS: ALPRAZolam 1 MG TAB PO PRN ×2 (01:24→22:43)
[2020-02-26] MEDS: GLYCOPYRROLATE 1 MG TAB PO SCH ×3 (08:00→20:45)
[2020-02-26] MEDS: ACETYLCYSTEINE 20% 200 MG/1 ML *FOR INHALATION USE INHALATION SCH ×2 (08:31→20:00)
[2020-02-26] MEDS: METOPROLOL TARTRATE 25 MG TAB PO SCH ×2 (10:19→21:36)
[2020-02-26] MEDS: levETIRAcetam 500 MG/5 ML ORAL LIQD PO SCH ×2 (10:19→21:35)
[2020-02-26] MEDS: DOCUSATE SODIUM 100 MG/10 ML ORAL LIQD FEEDTUBE SCH ×2 (10:19→22:17)
[2020-02-26] MEDS: NICOTINE 21 MG/24 HR PATCH TD SCH (10:20)
[2020-02-26] MEDS: MIRTAZAPINE 30 MG TAB PO SCH (10:20)
[2020-02-26] MEDS: hydrOXYzine PAMOATE 25 MG CAP PO SCH ×2 (10:20→21:35)
[2020-02-26] MEDS: SCOPOLAMINE TRANSDERMAL PATCH 72 HR TD SCH (10:21)
[2020-02-26] MEDS: SERTRALINE 50 MG TAB PO SCH (10:21)
[2020-02-26] MEDS: LANSOPRAZOLE 30 MG SOLUTAB FEEDTUBE SCH (10:22)
--- NOTE | 2020-02-26 11:18 | Progress Note ---
Assessment and Plan Patient awake. Patient still Confused and Agitating.Patient S/P trach. Patient is on T tube, FIO2 28%. O2 saturation 97%. No acute respiratory distress. Wound around trach tube. Recommend cleaning and tracheostomy care. Dressing applied.Re commend frequent respiratory suctioning. Patient afebrile and has mild leukocytosis. - Patient Problems (1) Acute respiratory failure Current Visit: Yes Status: Acute Qualifiers: Respiratory failure complication: hypoxia Qualified Code(s): J96.01 - Acute respiratory failure with hypoxia Plan to address problem: S/P Tracheostomy. Presently on T tube, FIO2 28% and. O2 saturation 98%. Recommend albuterol/atrovent aerosol treatments q 6 hours. Continue Mucomist. Respiratory suctioning. Trach care. Mobility protocol. (2) Alcohol abuse Current Visit: Yes Status: Acute Plan to address problem: Management as per primary care. (3) Cardiac arrest with successful resuscitation Current Visit: Yes Status: Acute Plan to address problem: Patient successfully resucitated. Alert, awake. Not oriented. (4) Increased ammonia level Current Visit: Yes Status: Acute Plan to address problem: Management as per primary care. (5) Seizure disorder Current Visit: Yes Status: Acute Plan to address problem: Management as per primary care and neurology. (6) HTN (hypertension) Current Visit: No Status: Acute Plan to address problem: Management as per primary care. Subjective Date of service: 02/26/20 Principal diagnosis: Ac cardiopulmonary arrest; Ac hypoxemic resp failure; Acute encephalopathy Interval history: Patient awake. Patient still Confused and Agitating.Patient S/P trach. Patient is on T tube, FIO2 28%. O2 saturation 98%. No acute respiratory distress. Wound around trach tube. Recommend cleaning and tracheostomy care. Dressing applied.Recommend frequent respiratory suctioning. Patient afebrile and has mild leukocytosis. Objective Vital Signs - 12hr 02/25/20 02/26/20 02/26/20 23:24 01:30 03:50 Temperature 98.2 F 98.2 F Pulse Rate 105 H 93 H Pulse Rate [ Anterior Bilateral Throughout] Respiratory 20 18 Rate Respiratory Rate [Anterior Bilateral Throughout] Blood Pressure 107/68 119/74 Blood Pressure [Left] O2 Sat by Pulse 97 92 Oximetry O2 Sat by Pulse 99 Oximetry [ Assessment] 02/26/20 02/26/20 02/26/20 07:40 07:55 08:00 Temperature 98.9 F Pulse Rate 95 H Pulse Rate [ 77 Anterior Bilateral Throughout] Respiratory 20 Rate Respiratory 22 Rate [Anterior Bilateral Throughout] Blood Pressure 129/79 Blood Pressure [Left] O2 Sat by Pulse 96 Oximetry O2 Sat by Pulse 96 Oximetry [ Assessment] 02/26/20 02/26/20 02/26/20 08:11 09:27 10:18 Temperature 98.3 F Pulse Rate 95 H Pulse Rate [ Anterior Bilateral Throughout] Respiratory 20 Rate Respiratory Rate [Anterior Bilateral Throughout] Blood Pressure 109/79 Blood Pressure 125/79 [Left] O2 Sat by Pulse 95 Oximetry O2 Sat by Pulse Oximetry [ Assessment] 02/26/20 02/26/20 10:19 11:12 Temperature 98.6 F Pulse Rate 119 H 103 H Pulse Rate [ Anterior Bilateral Throughout] Respiratory 18 Rate Respiratory Rate [Anterior Bilateral Throughout] Blood Pressure 109/79 110/71 Blood Pressure [Left] O2 Sat by Pulse 98 Oximetry O2 Sat by Pulse Oximetry [ Assessment] Constitutional: no acute distress, alert, agitated, appears uncomfortable, other (Confused and agitating.) Eyes: non-icteric ENT: oropharynx moist, other (s/p trach) Neck: supple, no lymphadenopathy, no JVD Effort: normal Ascultation: Bilateral: diminished breath sounds, rhonchi Percussion: Bilateral: not dull Cardiovascular: regular rate and rhythm (tachycardia), other (S1,S2) Gastrointestinal: normoactive bowel sounds, soft, non-tender, non-distended Integumentary: normal Extremities: no cyanosis, no edema, pulses normal, no ischemia or petechiae Neurologic: non-focal exam, pupils equal and round, unable to assess Psychiatric: anxious, other (Agitated.) CBC and BMP: 02/17/20 07:57 02/17/20 07:57 ABG, PT/INR, D-dimer: ABG ABG pH 7.429 pH Units (7.350-7.450) 01/09/20 08:51 ABG pCO2 39.1 mm Hg 01/09/20 08:51 ABG pO2 94.3 mm Hg (80.0-90.0) H 01/09/20 08:51 ABG O2 Saturation 97.4 % (95.0-99.0) 01/09/20 08:51 PT/INR, D-dimer PT 17.0 Sec. (12.2-14.9) H 11/23/19 03:47 INR 1.36 (0.87-1.13) H 11/23/19 03:47 Abnormal lab findings: Abnormal Labs 11/22/19 11/22/19 11/22/19 23:17 23:18 23:27 WBC 21.2 H RBC 3.59 L Hgb 9.8 L Hct MCH 27 L RDW 18.6 H Plt Count 454 H Lymph % (Auto) Moore % (Auto) Moore # Baso # Seg Neutrophils % Seg Neuts % (Manual) 86.0 H Lymphocytes % (Manual) 9.0 L Monocytes % (Manual) Seg Neutrophils # Seg Neutrophils # Man 18.2 H Lymphocytes # (Manual) Monocytes # (Manual) 1.1 H Eosinophils # (Manual) Basophils # (Manual) PT INR APTT ABG pH ABG pO2 ABG HCO3 ABG O2 Saturation ABG Base Excess ABG Hemoglobin Oxyhemoglobin Sodium Potassium Chloride Carbon Dioxide BUN Creatinine Glucose POC Glucose 53 L Lactic Acid Calcium Ionized Calcium Phosphorus Magnesium Total Bilirubin AST ALT Alkaline Phosphatase Ammonia Total Creatine Kinase CK-MB (CK-2) CK-MB (CK-2) Rel Index Total Protein Albumin Urine WBC (Auto) 40.0 H Vancomycin Trough Salicylates Acetaminophen Plasma/Serum Alcohol Crossmatch 11/22/19 11/22/19 11/22/19 23:27 23:27 23:27 WBC RBC Hgb Hct MCH RDW Plt Count Lymph % (Auto) Moore % (Auto) Moore # Baso # Seg Neutrophils % Seg Neuts % (Manual) Lymphocytes % (Manual) Monocytes % (Manual) Seg Neutrophils # Seg Neutrophils # Man Lymphocytes # (Manual) Monocytes # (Manual) Eosinophils # (Manual) Basophils # (Manual) PT INR APTT ABG pH ABG pO2 ABG HCO3 ABG O2 Saturation ABG Base Excess ABG Hemoglobin Oxyhemoglobin Sodium Potassium 2.4 L* Chloride 85.1 L Carbon Dioxide 19 L BUN Creatinine 0.5 L Glucose 261 H POC Glucose Lactic Acid Calcium Ionized Calcium Phosphorus Magnesium Total Bilirubin AST 609 H ALT 152 H Alkaline Phosphatase 160 H Ammonia 117.0 H Total Creatine Kinase 139 H CK-MB (CK-2) 8.3 H CK-MB (CK-2) Rel Index 5.9 H Total Protein Albumin 3.6 L Urine WBC (Auto) Vancomycin Trough Salicylates < 0.3 L Acetaminophen Plasma/Serum Alcohol Crossmatch 11/22/19 11/22/19 11/23/19 23:27 23:27 01:10 WBC RBC Hgb Hct MCH RDW Plt Count Lymph % (Auto) Moore % (Auto) Moore # Baso # Seg Neutrophils % Seg Neuts % (Manual) Lymphocytes % (Manual) Monocytes % (Manual) Seg Neutrophils # Seg Neutrophils # Man Lymphocytes # (Manual) Monocytes # (Manual) Eosinophils # (Manual) Basophils # (Manual) PT INR APTT ABG pH 7.273 L ABG pO2 209.7 H ABG HCO3 ABG O2 Saturation 99.2 H ABG Base Excess -3.9 L ABG Hemoglobin 10.6 L Oxyhemoglobin 93.9 L Sodium Potassium Chloride Carbon Dioxide BUN Creatinine Glucose POC Glucose Lactic Acid Calcium Ionized Calcium Phosphorus Magnesium Total Bilirubin AST ALT Alkaline Phosphatase Ammonia Total Creatine Kinase CK-MB (CK-2) CK-MB (CK-2) Rel Index Total Protein Albumin Urine WBC (Auto) Vancomycin Trough Salicylates Acetaminophen < 5.0 L Plasma/Serum Alcohol 0.08 H Crossmatch 11/23/19 11/23/19 11/23/19 01:19 01:19 03:47 WBC RBC Hgb Hct MCH RDW Plt Count Lymph % (Auto) Moore % (Auto) Moore # Baso # Seg Neutrophils % Seg Neuts % (Manual) Lymphocytes % (Manual) Monocytes % (Manual) Seg Neutrophils # Seg Neutrophils # Man Lymphocytes # (Manual) Monocytes # (Manual) Eosinophils # (Manual) Basophils # (Manual) PT 16.3 H INR 1.29 H APTT ABG pH ABG pO2 ABG HCO3 ABG O2 Saturation ABG Base Excess ABG Hemoglobin Oxyhemoglobin Sodium Potassium Chloride Carbon Dioxide BUN Creatinine Glucose POC Glucose Lactic Acid 2.10 H* 5.00 H* Calcium Ionized Calcium Phosphorus Magnesium Total Bilirubin AST ALT Alkaline Phosphatase Ammonia Total Creatine Kinase CK-MB (CK-2) CK-MB (CK-2) Rel Index Total Protein Albumin Urine WBC (Auto) Vancomycin Trough Salicylates Acetaminophen Plasma/Serum Alcohol Crossmatch 11/23/19 11/23/19 11/23/19 03:47 03:47 04:53 WBC RBC Hgb 9.4 L Hct MCH RDW Plt Count Lymph % (Auto) Moore % (Auto) Moore # Baso # Seg Neutrophils % Seg Neuts % (Manual) Lymphocytes % (Manual) Monocytes % (Manual) Seg Neutrophils # Seg Neutrophils # Man Lymphocytes # (Manual) Monocytes # (Manual) Eosinophils # (Manual) Basophils # (Manual) PT 17.0 H INR 1.36 H APTT 128.2 H* ABG pH ABG pO2 ABG HCO3 ABG O2 Saturation ABG Base Excess ABG Hemoglobin Oxyhemoglobin Sodium Potassium Chloride Carbon Dioxide 18 L BUN Creatinine 0.5 L Glucose 105 H POC Glucose Lactic Acid Calcium 8.3 L Ionized Calcium Phosphorus 2.40 L Magnesium Total Bilirubin 1.30 H AST 761 H ALT 158 H Alkaline Phosphatase 143 H Ammonia Total Creatine Kinase CK-MB (CK-2) CK-MB (CK-2) Rel Index Total Protein Albumin 2.8 L Urine WBC (Auto) Vancomycin Trough Salicylates Acetaminophen Plasma/Serum Alcohol Crossmatch 11/23/19 11/23/19 11/23/19 05:12 06:32 06:32 WBC 16.8 H RBC 3.31 L Hgb 8.9 L Hct 28.7 L MCH 27 L RDW 18.6 H Plt Count Lymph % (Auto) Moore % (Auto) Moore # Baso # Seg Neutrophils % Seg Neuts % (Manual) 94.0 H Lymphocytes % (Manual) 1.0 L Monocytes % (Manual) Seg Neutrophils # Seg Neutrophils # Man 15.8 H Lymphocytes # (Manual) 0.2 L Monocytes # (Manual) Eosinophils # (Manual) Basophils # (Manual) PT INR APTT ABG pH ABG pO2 ABG HCO3 ABG O2 Saturation ABG Base Excess -3.2 L ABG Hemoglobin 9.0 L Oxyhemoglobin 93.6 L Sodium Potassium Chloride Carbon Dioxide BUN Creatinine Glucose POC Glucose Lactic Acid Calcium Ionized Calcium 4.5 L Phosphorus Magnesium Total Bilirubin AST ALT Alkaline Phosphatase Ammonia Total Creatine Kinase CK-MB (CK-2) CK-MB (CK-2) Rel Index Total Protein Albumin Urine WBC (Auto) Vancomycin Trough Salicylates Acetaminophen Plasma/Serum Alcohol Crossmatch 11/23/19 11/24/19 11/24/19 06:32 04:35 04:35 WBC RBC Hgb Hct MCH RDW Plt Count Lymph % (Auto) Moore % (Auto) Moore # Baso # Seg Neutrophils % Seg Neuts % (Manual) Lymphocytes % (Manual) Monocytes % (Manual) Seg Neutrophils # Seg Neutrophils # Man Lymphocytes # (Manual) Monocytes # (Manual) Eosinophils # (Manual) Basophils # (Manual) PT INR APTT ABG pH ABG pO2 ABG HCO3 ABG O2 Saturation ABG Base Excess ABG Hemoglobin Oxyhemoglobin Sodium Potassium Chloride Carbon Dioxide BUN Creatinine Glucose POC Glucose Lactic Acid 3.30 H* Calcium Ionized Calcium Phosphorus Magnesium 1.40 L Total Bilirubin AST ALT Alkaline Phosphatase Ammonia 98.0 H Total Creatine Kinase CK-MB (CK-2) CK-MB (CK-2) Rel Index Total Protein Albumin Urine WBC (Auto) Vancomycin Trough Salicylates Acetaminophen Plasma/Serum Alcohol Crossmatch 11/24/19 11/25/19 11/25/19 05:22 04:34 05:05 WBC 17.3 H RBC 2.88 L Hgb 7.8 L Hct 24.6 L MCH 27 L RDW 18.5 H Plt Count Lymph % (Auto) 7.7 L Moore % (Auto) 9.7 H Moore # 1.7 H Baso # Seg Neutrophils % 82.2 H Seg Neuts % (Manual) Lymphocytes % (Manual) Monocytes % (Manual) Seg Neutrophils # 14.2 H Seg Neutrophils # Man Lymphocytes # (Manual) Monocytes # (Manual) Eosinophils # (Manual) Basophils # (Manual) PT INR APTT ABG pH 7.475 H ABG pO2 ABG HCO3 29.4 H 32.3 H ABG O2 Saturation ABG Base Excess 5.4 H 6.9 H ABG Hemoglobin 9.0 L 10.6 L Oxyhemoglobin 94.3 L Sodium Potassium Chloride Carbon Dioxide BUN Creatinine Glucose POC Glucose Lactic Acid Calcium Ionized Calcium Phosphorus Magnesium Total Bilirubin AST ALT Alkaline Phosphatase Ammonia Total Creatine Kinase CK-MB (CK-2) CK-MB (CK-2) Rel Index Total Protein Albumin Urine WBC (Auto) Vancomycin Trough Salicylates Acetaminophen Plasma/Serum Alcohol Crossmatch 11/25/19 11/25/19 11/26/19 05:05 22:46 03:31 WBC RBC Hgb Hct MCH RDW Plt Count Lymph % (Auto) Moore % (Auto) Moore # Baso # Seg Neutrophils % Seg Neuts % (Manual) Lymphocytes % (Manual) Monocytes % (Manual) Seg Neutrophils # Seg Neutrophils # Man Lymphocytes # (Manual) Monocytes # (Manual) Eosinophils # (Manual) Basophils # (Manual) PT INR APTT ABG pH 7.459 H ABG pO2 ABG HCO3 34.2 H ABG O2 Saturation ABG Base Excess 9.4 H ABG Hemoglobin 7.6 L Oxyhemoglobin 94.8 L Sodium 152 H D 147 H Potassium 2.3 L* D 2.8 L* D Chloride 107.8 H Carbon Dioxide 31 H D 33 H BUN Creatinine 0.6 L 0.6 L Glucose 148 H 177 H POC Glucose Lactic Acid Calcium Ionized Calcium Phosphorus Magnesium Total Bilirubin AST 105 H ALT 71 H Alkaline Phosphatase 155 H Ammonia Total Creatine Kinase CK-MB (CK-2) CK-MB (CK-2) Rel Index Total Protein 5.2 L D Albumin 2.9 L Urine WBC (Auto) Vancomycin Trough Salicylates Acetaminophen Plasma/Serum Alcohol Crossmatch 11/26/19 11/26/19 11/27/19 08:24 08:24 04:20 WBC 12.0 H RBC 3.00 L Hgb 8.0 L 9.3 L Hct 25.9 L 29.7 L MCH 27 L RDW 18.5 H Plt Count Lymph % (Auto) Moore % (Auto) Moore # Baso # Seg Neutrophils % Seg Neuts % (Manual) 89.0 H Lymphocytes % (Manual) 4.0 L Monocytes % (Manual) Seg Neutrophils # Seg Neutrophils # Man 10.7 H Lymphocytes # (Manual) 0.5 L Monocytes # (Manual) Eosinophils # (Manual) Basophils # (Manual) PT INR APTT ABG pH ABG pO2 ABG HCO3 ABG O2 Saturation ABG Base Excess ABG Hemoglobin Oxyhemoglobin Sodium 146 H Potassium 3.4 L D Chloride Carbon Dioxide BUN Creatinine 0.5 L Glucose 165 H POC Glucose Lactic Acid Calcium Ionized Calcium Phosphorus Magnesium Total Bilirubin AST 57 H ALT Alkaline Phosphatase 166 H Ammonia Total Creatine Kinase CK-MB (CK-2) CK-MB (CK-2) Rel Index Total Protein Albumin 2.9 L Urine WBC (Auto) Vancomycin Trough Salicylates Acetaminophen Plasma/Serum Alcohol Crossmatch 11/27/19 11/27/19 11/27/19 04:28 04:28 04:42 WBC RBC Hgb Hct MCH RDW Plt Count Lymph % (Auto) Moore % (Auto) Moore # Baso # Seg Neutrophils % Seg Neuts % (Manual) Lymphocytes % (Manual) Monocytes % (Manual) Seg Neutrophils # Seg Neutrophils # Man Lymphocytes # (Manual) Monocytes # (Manual) Eosinophils # (Manual) Basophils # (Manual) PT INR APTT ABG pH 7.470 H ABG pO2 74.0 L ABG HCO3 33.8 H ABG O2 Saturation ABG Base Excess 9.1 H ABG Hemoglobin 8.7 L Oxyhemoglobin 94.7 L Sodium 146 H Potassium 2.9 L* Chloride Carbon Dioxide BUN 25 H Creatinine Glucose 213 H POC Glucose Lactic Acid Calcium Ionized Calcium Phosphorus 1.00 L Magnesium Total Bilirubin AST ALT Alkaline Phosphatase Ammonia Total Creatine Kinase CK-MB (CK-2) CK-MB (CK-2) Rel Index Total Protein Albumin Urine WBC (Auto) Vancomycin Trough Salicylates Acetaminophen Plasma/Serum Alcohol Crossmatch 11/27/19 11/27/19 11/27/19 05:37 12:20 15:46 WBC RBC Hgb Hct MCH RDW Plt Count Lymph % (Auto) Moore % (Auto) Moore # Baso # Seg Neutrophils % Seg Neuts % (Manual) Lymphocytes % (Manual) Monocytes % (Manual) Seg Neutrophils # Seg Neutrophils # Man Lymphocytes # (Manual) Monocytes # (Manual) Eosinophils # (Manual) Basophils # (Manual) PT INR APTT ABG pH ABG pO2 ABG HCO3 ABG O2 Saturation ABG Base Excess ABG Hemoglobin Oxyhemoglobin Sodium 146 H Potassium 3.5 L D Chloride Carbon Dioxide BUN 24 H Creatinine 0.6 L Glucose 187 H POC Glucose 117 H 220 H Lactic Acid Calcium Ionized Calcium Phosphorus Magnesium Total Bilirubin AST ALT Alkaline Phosphatase Ammonia Total Creatine Kinase CK-MB (CK-2) CK-MB (CK-2) Rel Index Total Protein Albumin Urine WBC (Auto) Vancomycin Trough Salicylates Acetaminophen Plasma/Serum Alcohol Crossmatch 11/27/19 11/28/19 11/28/19 17:28 05:00 05:02 WBC RBC Hgb Hct MCH RDW Plt Count Lymph % (Auto) Moore % (Auto) Moore # Baso # Seg Neutrophils % Seg Neuts % (Manual) Lymphocytes % (Manual) Monocytes % (Manual) Seg Neutrophils # Seg Neutrophils # Man Lymphocytes # (Manual) Monocytes # (Manual) Eosinophils # (Manual) Basophils # (Manual) PT INR APTT ABG pH ABG pO2 72.4 L ABG HCO3 33.6 H ABG O2 Saturation 94.1 L ABG Base Excess 7.3 H ABG Hemoglobin Oxyhemoglobin 91.8 L Sodium 146 H Potassium 3.3 L Chloride Carbon Dioxide BUN 25 H Creatinine 0.6 L Glucose 176 H POC Glucose 198 H Lactic Acid Calcium Ionized Calcium Phosphorus Magnesium Total Bilirubin AST ALT Alkaline Phosphatase Ammonia Total Creatine Kinase CK-MB (CK-2) CK-MB (CK-2) Rel Index Total Protein Albumin Urine WBC (Auto) Vancomycin Trough Salicylates Acetaminophen Plasma/Serum Alcohol Crossmatch 11/28/19 11/28/19 11/29/19 05:02 18:55 10:43 WBC 15.2 H 19.0 H RBC 3.06 L 3.01 L Hgb 8.3 L 8.3 L Hct 27.0 L 26.4 L MCH 27 L RDW 19.0 H 19.7 H Plt Count 479 H 611 H Lymph % (Auto) Moore % (Auto) Moore # Baso # Seg Neutrophils % Seg Neuts % (Manual) 92.0 H Lymphocytes % (Manual) 2.0 L Monocytes % (Manual) Seg Neutrophils # Seg Neutrophils # Man 14.0 H Lymphocytes # (Manual) 0.3 L Monocytes # (Manual) Eosinophils # (Manual) Basophils # (Manual) PT INR APTT ABG pH ABG pO2 ABG HCO3 ABG O2 Saturation ABG Base Excess ABG Hemoglobin Oxyhemoglobin Sodium Potassium Chloride Carbon Dioxide BUN Creatinine Glucose POC Glucose 138 H Lactic Acid Calcium Ionized Calcium Phosphorus Magnesium Total Bilirubin AST ALT Alkaline Phosphatase Ammonia Total Creatine Kinase CK-MB (CK-2) CK-MB (CK-2) Rel Index Total Protein Albumin Urine WBC (Auto) Vancomycin Trough Salicylates Acetaminophen Plasma/Serum Alcohol Crossmatch 11/29/19 11/29/19 11/29/19 10:43 12:27 19:25 WBC RBC Hgb Hct MCH RDW Plt Count Lymph % (Auto) Moore % (Auto) Moore # Baso # Seg Neutrophils % Seg Neuts % (Manual) Lymphocytes % (Manual) Monocytes % (Manual) Seg Neutrophils # Seg Neutrophils # Man Lymphocytes # (Manual) Monocytes # (Manual) Eosinophils # (Manual) Basophils # (Manual) PT INR APTT ABG pH ABG pO2 ABG HCO3 ABG O2 Saturation ABG Base Excess ABG Hemoglobin Oxyhemoglobin Sodium Potassium 2.8 L* Chloride Carbon Dioxide BUN 20 H Creatinine 0.5 L Glucose 121 H POC Glucose 128 H 120 H Lactic Acid Calcium Ionized Calcium Phosphorus Magnesium Total Bilirubin AST ALT Alkaline Phosphatase Ammonia Total Creatine Kinase CK-MB (CK-2) CK-MB (CK-2) Rel Index Total Protein Albumin Urine WBC (Auto) Vancomycin Trough Salicylates Acetaminophen Plasma/Serum Alcohol Crossmatch 11/29/19 11/30/19 11/30/19 23:46 04:10 05:02 WBC RBC Hgb Hct MCH RDW Plt Count Lymph % (Auto) Moore % (Auto) Moore # Baso # Seg Neutrophils % Seg Neuts % (Manual) Lymphocytes % (Manual) Monocytes % (Manual) Seg Neutrophils # Seg Neutrophils # Man Lymphocytes # (Manual) Monocytes # (Manual) Eosinophils # (Manual) Basophils # (Manual) PT INR APTT ABG pH ABG pO2 76.3 L ABG HCO3 32.5 H ABG O2 Saturation ABG Base Excess 6.9 H ABG Hemoglobin 8.0 L Oxyhemoglobin 92.6 L Sodium Potassium Chloride Carbon Dioxide BUN Creatinine Glucose POC Glucose 116 H 128 H Lactic Acid Calcium Ionized Calcium Phosphorus Magnesium Total Bilirubin AST ALT Alkaline Phosphatase Ammonia Total Creatine Kinase CK-MB (CK-2) CK-MB (CK-2) Rel Index Total Protein Albumin Urine WBC (Auto) Vancomycin Trough Salicylates Acetaminophen Plasma/Serum Alcohol Crossmatch 11/30/19 11/30/19 11/30/19 05:25 05:25 12:59 WBC 18.4 H RBC 3.10 L Hgb 8.5 L Hct 27.5 L MCH 27 L RDW 20.9 H Plt Count 691 H Lymph % (Auto) 7.1 L Moore % (Auto) 7.7 H Moore # 1.4 H Baso # Seg Neutrophils % 83.4 H Seg Neuts % (Manual) Lymphocytes % (Manual) Monocytes % (Manual) Seg Neutrophils # 15.4 H Seg Neutrophils # Man Lymphocytes # (Manual) Monocytes # (Manual) Eosinophils # (Manual) Basophils # (Manual) PT INR APTT ABG pH ABG pO2 ABG HCO3 ABG O2 Saturation ABG Base Excess ABG Hemoglobin Oxyhemoglobin Sodium 146 H Potassium Chloride 107.2 H Carbon Dioxide BUN Creatinine 0.5 L Glucose 132 H POC Glucose 124 H Lactic Acid Calcium Ionized Calcium Phosphorus Magnesium Total Bilirubin AST 246 H ALT 274 H Alkaline Phosphatase 203 H Ammonia Total Creatine Kinase CK-MB (CK-2) CK-MB (CK-2) Rel Index Total Protein 5.4 L Albumin 2.9 L Urine WBC (Auto) Vancomycin Trough Salicylates Acetaminophen Plasma/Serum Alcohol Crossmatch 11/30/19 12/01/19 12/01/19 17:53 00:05 05:10 WBC RBC Hgb Hct MCH RDW Plt Count Lymph % (Auto) Moore % (Auto) Moore # Baso # Seg Neutrophils % Seg Neuts % (Manual) Lymphocytes % (Manual) Monocytes % (Manual) Seg Neutrophils # Seg Neutrophils # Man Lymphocytes # (Manual) Monocytes # (Manual) Eosinophils # (Manual) Basophils # (Manual) PT INR APTT ABG pH ABG pO2 ABG HCO3 ABG O2 Saturation ABG Base Excess ABG Hemoglobin Oxyhemoglobin Sodium Potassium Chloride Carbon Dioxide BUN Creatinine Glucose POC Glucose 113 H 143 H 145 H Lactic Acid Calcium Ionized Calcium Phosphorus Magnesium Total Bilirubin AST ALT Alkaline Phosphatase Ammonia Total Creatine Kinase CK-MB (CK-2) CK-MB (CK-2) Rel Index Total Protein Albumin Urine WBC (Auto) Vancomycin Trough Salicylates Acetaminophen Plasma/Serum Alcohol Crossmatch 12/01/19 12/01/19 12/01/19 05:33 08:23 08:23 WBC 22.7 H RBC 2.88 L Hgb 7.9 L Hct 25.2 L MCH 27 L RDW 21.0 H Plt Count 732 H Lymph % (Auto) Moore % (Auto) Moore # Baso # Seg Neutrophils % Seg Neuts % (Manual) 91.0 H Lymphocytes % (Manual) 3.0 L Monocytes % (Manual) Seg Neutrophils # Seg Neutrophils # Man 20.7 H Lymphocytes # (Manual) 0.7 L Monocytes # (Manual) 1.1 H Eosinophils # (Manual) Basophils # (Manual) PT INR APTT ABG pH ABG pO2 68.6 L ABG HCO3 34.1 H ABG O2 Saturation ABG Base Excess 9.0 H ABG Hemoglobin 6.5 L Oxyhemoglobin 94.7 L Sodium Potassium Chloride Carbon Dioxide BUN Creatinine 0.5 L Glucose 125 H POC Glucose Lactic Acid Calcium Ionized Calcium Phosphorus Magnesium Total Bilirubin AST ALT Alkaline Phosphatase Ammonia Total Creatine Kinase CK-MB (CK-2) CK-MB (CK-2) Rel Index Total Protein Albumin Urine WBC (Auto) Vancomycin Trough Salicylates Acetaminophen Plasma/Serum Alcohol Crossmatch 12/01/19 12/01/19 12/01/19 13:21 17:54 20:59 WBC RBC Hgb Hct MCH RDW Plt Count Lymph % (Auto) Moore % (Auto) Moore # Baso # Seg Neutrophils % Seg Neuts % (Manual) Lymphocytes % (Manual) Monocytes % (Manual) Seg Neutrophils # Seg Neutrophils # Man Lymphocytes # (Manual) Monocytes # (Manual) Eosinophils # (Manual) Basophils # (Manual) PT INR APTT ABG pH ABG pO2 78.3 L ABG HCO3 33.8 H ABG O2 Saturation 94.9 L ABG Base Excess 7.9 H ABG Hemoglobin 11.5 L Oxyhemoglobin 92.3 L Sodium Potassium Chloride Carbon Dioxide BUN Creatinine Glucose POC Glucose 111 H 115 H Lactic Acid Calcium Ionized Calcium Phosphorus Magnesium Total Bilirubin AST ALT Alkaline Phosphatase Ammonia Total Creatine Kinase CK-MB (CK-2) CK-MB (CK-2) Rel Index Total Protein Albumin Urine WBC (Auto) Vancomycin Trough Salicylates Acetaminophen Plasma/Serum Alcohol Crossmatch 12/02/19 12/03/19 12/04/19 12:55 20:00 04:26 WBC 15.2 H RBC 2.69 L Hgb 7.4 L Hct 23.6 L MCH 27 L RDW 19.9 H Plt Count 838 H Lymph % (Auto) Moore % (Auto) Moore # Baso # Seg Neutrophils % Seg Neuts % (Manual) Lymphocytes % (Manual) Monocytes % (Manual) Seg Neutrophils # Seg Neutrophils # Man Lymphocytes # (Manual) Monocytes # (Manual) Eosinophils # (Manual) Basophils # (Manual) PT INR APTT ABG pH ABG pO2 68.3 L ABG HCO3 33.5 H ABG O2 Saturation 93.5 L ABG Base Excess 8.4 H ABG Hemoglobin 7.3 L Oxyhemoglobin 90.9 L Sodium Potassium Chloride Carbon Dioxide BUN Creatinine Glucose POC Glucose 107 H Lactic Acid Calcium Ionized Calcium Phosphorus Magnesium Total Bilirubin AST ALT Alkaline Phosphatase Ammonia Total Creatine Kinase CK-MB (CK-2) CK-MB (CK-2) Rel Index Total Protein Albumin Urine WBC (Auto) Vancomycin Trough Salicylates Acetaminophen Plasma/Serum Alcohol Crossmatch 12/04/19 12/04/19 12/04/19 04:26 07:45 12:02 WBC 15.9 H RBC 2.88 L Hgb 7.9 L Hct 25.1 L MCH RDW 20.4 H Plt Count 839 H Lymph % (Auto) 11.3 L Moore % (Auto) 15.2 H Moore # 2.4 H Baso # Seg Neutrophils % 72.4 H Seg Neuts % (Manual) Lymphocytes % (Manual) Monocytes % (Manual) Seg Neutrophils # 11.5 H Seg Neutrophils # Man Lymphocytes # (Manual) Monocytes # (Manual) Eosinophils # (Manual) Basophils # (Manual) PT INR APTT ABG pH ABG pO2 ABG HCO3 ABG O2 Saturation ABG Base Excess ABG Hemoglobin Oxyhemoglobin Sodium Potassium Chloride 96.5 L Carbon Dioxide BUN 21 H Creatinine 0.6 L Glucose 107 H POC Glucose 138 H Lactic Acid Calcium Ionized Calcium Phosphorus Magnesium Total Bilirubin AST ALT Alkaline Phosphatase Ammonia Total Creatine Kinase CK-MB (CK-2) CK-MB (CK-2) Rel Index Total Protein Albumin Urine WBC (Auto) Vancomycin Trough Salicylates Acetaminophen Plasma/Serum Alcohol Crossmatch 12/04/19 12/05/19 12/05/19 18:16 11:55 18:36 WBC RBC Hgb Hct MCH RDW Plt Count Lymph % (Auto) Moore % (Auto) Moore # Baso # Seg Neutrophils % Seg Neuts % (Manual) Lymphocytes % (Manual) Monocytes % (Manual) Seg Neutrophils # Seg Neutrophils # Man Lymphocytes # (Manual) Monocytes # (Manual) Eosinophils # (Manual) Basophils # (Manual) PT INR APTT ABG pH ABG pO2 ABG HCO3 ABG O2 Saturation ABG Base Excess ABG Hemoglobin Oxyhemoglobin Sodium Potassium Chloride Carbon Dioxide BUN Creatinine Glucose POC Glucose 135 H 125 H 135 H Lactic Acid Calcium Ionized Calcium Phosphorus Magnesium Total Bilirubin AST ALT Alkaline Phosphatase Ammonia Total Creatine Kinase CK-MB (CK-2) CK-MB (CK-2) Rel Index Total Protein Albumin Urine WBC (Auto) Vancomycin Trough Salicylates Acetaminophen Plasma/Serum Alcohol Crossmatch 12/05/19 12/06/19 12/06/19 23:30 04:14 05:43 WBC RBC Hgb Hct MCH RDW Plt Count Lymph % (Auto) Moore % (Auto) Moore # Baso # Seg Neutrophils % Seg Neuts % (Manual) Lymphocytes % (Manual) Monocytes % (Manual) Seg Neutrophils # Seg Neutrophils # Man Lymphocytes # (Manual) Monocytes # (Manual) Eosinophils # (Manual) Basophils # (Manual) PT INR APTT ABG pH ABG pO2 ABG HCO3 ABG O2 Saturation ABG Base Excess ABG Hemoglobin Oxyhemoglobin Sodium Potassium 5.6 H Chloride 95.0 L Carbon Dioxide BUN 48 H Creatinine 1.3 H D Glucose POC Glucose 126 H 121 H Lactic Acid Calcium Ionized Calcium Phosphorus Magnesium Total Bilirubin AST 89 H ALT 98 H Alkaline Phosphatase 476 H Ammonia Total Creatine Kinase CK-MB (CK-2) CK-MB (CK-2) Rel Index Total Protein Albumin 2.8 L Urine WBC (Auto) Vancomycin Trough Salicylates Acetaminophen Plasma/Serum Alcohol Crossmatch 12/06/19 12/06/19 12/07/19 10:39 14:34 00:19 WBC 17.3 H RBC 2.60 L Hgb 7.1 L Hct 22.7 L MCH 27 L RDW 20.1 H Plt Count 832 H Lymph % (Auto) Moore % (Auto) Moore # Baso # Seg Neutrophils % Seg Neuts % (Manual) Lymphocytes % (Manual) Monocytes % (Manual) Seg Neutrophils # Seg Neutrophils # Man Lymphocytes # (Manual) Monocytes # (Manual) Eosinophils # (Manual) Basophils # (Manual) PT INR APTT ABG pH ABG pO2 ABG HCO3 ABG O2 Saturation ABG Base Excess ABG Hemoglobin Oxyhemoglobin Sodium Potassium Chloride Carbon Dioxide BUN Creatinine Glucose POC Glucose 128 H 136 H Lactic Acid Calcium Ionized Calcium Phosphorus Magnesium Total Bilirubin AST ALT Alkaline Phosphatase Ammonia Total Creatine Kinase CK-MB (CK-2) CK-MB (CK-2) Rel Index Total Protein Albumin Urine WBC (Auto) Vancomycin Trough Salicylates Acetaminophen Plasma/Serum Alcohol Crossmatch 12/07/19 12/07/19 12/07/19 03:44 03:44 05:53 WBC 16.2 H RBC 2.56 L Hgb 7.1 L Hct 22.3 L MCH RDW 19.4 H Plt Count 782 H Lymph % (Auto) Moore % (Auto) Moore # Baso # Seg Neutrophils % Seg Neuts % (Manual) Lymphocytes % (Manual) Monocytes % (Manual) Seg Neutrophils # Seg Neutrophils # Man Lymphocytes # (Manual) Monocytes # (Manual) Eosinophils # (Manual) Basophils # (Manual) PT INR APTT ABG pH ABG pO2 ABG HCO3 ABG O2 Saturation ABG Base Excess ABG Hemoglobin Oxyhemoglobin Sodium Potassium Chloride 95.6 L Carbon Dioxide BUN 56 H Creatinine 1.4 H Glucose 120 H POC Glucose 128 H Lactic Acid Calcium 10.3 H Ionized Calcium Phosphorus Magnesium Total Bilirubin AST ALT Alkaline Phosphatase Ammonia Total Creatine Kinase CK-MB (CK-2) CK-MB (CK-2) Rel Index Total Protein Albumin Urine WBC (Auto) Vancomycin Trough Salicylates Acetaminophen Plasma/Serum Alcohol Crossmatch 12/07/19 12/07/19 12/08/19 12:54 23:47 00:20 WBC RBC Hgb Hct MCH RDW Plt Count Lymph % (Auto) Moore % (Auto) Moore # Baso # Seg Neutrophils % Seg Neuts % (Manual) Lymphocytes % (Manual) Monocytes % (Manual) Seg Neutrophils # Seg Neutrophils # Man Lymphocytes # (Manual) Monocytes # (Manual) Eosinophils # (Manual) Basophils # (Manual) PT INR APTT ABG pH ABG pO2 ABG HCO3 ABG O2 Saturation ABG Base Excess ABG Hemoglobin Oxyhemoglobin Sodium Potassium Chloride Carbon Dioxide BUN Creatinine Glucose POC Glucose 128 H 130 H 124 H Lactic Acid Calcium Ionized Calcium Phosphorus Magnesium Total Bilirubin AST ALT Alkaline Phosphatase Ammonia Total Creatine Kinase CK-MB (CK-2) CK-MB (CK-2) Rel Index Total Protein Albumin Urine WBC (Auto) Vancomycin Trough Salicylates Acetaminophen Plasma/Serum Alcohol Crossmatch 12/08/19 12/08/19 12/08/19 06:38 12:04 18:26 WBC RBC Hgb Hct MCH RDW Plt Count Lymph % (Auto) Moore % (Auto) Moore # Baso # Seg Neutrophils % Seg Neuts % (Manual) Lymphocytes % (Manual) Monocytes % (Manual) Seg Neutrophils # Seg Neutrophils # Man Lymphocytes # (Manual) Monocytes # (Manual) Eosinophils # (Manual) Basophils # (Manual) PT INR APTT ABG pH ABG pO2 ABG HCO3 ABG O2 Saturation ABG Base Excess ABG Hemoglobin Oxyhemoglobin Sodium Potassium Chloride Carbon Dioxide BUN Creatinine Glucose POC Glucose 137 H 129 H 150 H Lactic Acid Calcium Ionized Calcium Phosphorus Magnesium Total Bilirubin AST ALT Alkaline Phosphatase Ammonia Total Creatine Kinase CK-MB (CK-2) CK-MB (CK-2) Rel Index Total Protein Albumin Urine WBC (Auto) Vancomycin Trough Salicylates Acetaminophen Plasma/Serum Alcohol Crossmatch 12/09/19 12/09/19 12/09/19 00:56 05:34 06:13 WBC RBC Hgb Hct MCH RDW Plt Count Lymph % (Auto) Moore % (Auto) Moore # Baso # Seg Neutrophils % Seg Neuts % (Manual) Lymphocytes % (Manual) Monocytes % (Manual) Seg Neutrophils # Seg Neutrophils # Man Lymphocytes # (Manual) Monocytes # (Manual) Eosinophils # (Manual) Basophils # (Manual) PT INR APTT ABG pH ABG pO2 ABG HCO3 ABG O2 Saturation ABG Base Excess ABG Hemoglobin Oxyhemoglobin Sodium 146 H Potassium Chloride Carbon Dioxide BUN 66 H Creatinine 1.9 H Glucose 116 H POC Glucose 130 H 130 H Lactic Acid Calcium Ionized Calcium Phosphorus Magnesium Total Bilirubin AST ALT Alkaline Phosphatase Ammonia Total Creatine Kinase CK-MB (CK-2) CK-MB (CK-2) Rel Index Total Protein Albumin Urine WBC (Auto) Vancomycin Trough Salicylates Acetaminophen Plasma/Serum Alcohol Crossmatch 12/09/19 12/09/19 12/10/19 11:52 17:50 00:14 WBC RBC Hgb Hct MCH RDW Plt Count Lymph % (Auto) Moore % (Auto) Moore # Baso # Seg Neutrophils % Seg Neuts % (Manual) Lymphocytes % (Manual) Monocytes % (Manual) Seg Neutrophils # Seg Neutrophils # Man Lymphocytes # (Manual) Monocytes # (Manual) Eosinophils # (Manual) Basophils # (Manual) PT INR APTT ABG pH ABG pO2 ABG HCO3 ABG O2 Saturation ABG Base Excess ABG Hemoglobin Oxyhemoglobin Sodium Potassium Chloride Carbon Dioxide BUN Creatinine Glucose POC Glucose 135 H 120 H 116 H Lactic Acid Calcium Ionized Calcium Phosphorus Magnesium Total Bilirubin AST ALT Alkaline Phosphatase Ammonia Total Creatine Kinase CK-MB (CK-2) CK-MB (CK-2) Rel Index Total Protein Albumin Urine WBC (Auto) Vancomycin Trough Salicylates Acetaminophen Plasma/Serum Alcohol Crossmatch 12/10/19 12/10/19 12/10/19 05:38 11:38 17:34 WBC RBC Hgb Hct MCH RDW Plt Count Lymph % (Auto) Moore % (Auto) Moore # Baso # Seg Neutrophils % Seg Neuts % (Manual) Lymphocytes % (Manual) Monocytes % (Manual) Seg Neutrophils # Seg Neutrophils # Man Lymphocytes # (Manual) Monocytes # (Manual) Eosinophils # (Manual) Basophils # (Manual) PT INR APTT ABG pH ABG pO2 ABG HCO3 ABG O2 Saturation ABG Base Excess ABG Hemoglobin Oxyhemoglobin Sodium Potassium Chloride Carbon Dioxide BUN Creatinine Glucose POC Glucose 115 H 112 H 130 H Lactic Acid Calcium Ionized Calcium Phosphorus Magnesium Total Bilirubin AST ALT Alkaline Phosphatase Ammonia Total Creatine Kinase CK-MB (CK-2) CK-MB (CK-2) Rel Index Total Protein Albumin Urine WBC (Auto) Vancomycin Trough Salicylates Acetaminophen Plasma/Serum Alcohol Crossmatch 12/11/19 12/11/19 12/11/19 00:20 05:31 12:22 WBC RBC Hgb Hct MCH RDW Plt Count Lymph % (Auto) Moore % (Auto) Moore # Baso # Seg Neutrophils % Seg Neuts % (Manual) Lymphocytes % (Manual) Monocytes % (Manual) Seg Neutrophils # Seg Neutrophils # Man Lymphocytes # (Manual) Monocytes # (Manual) Eosinophils # (Manual) Basophils # (Manual) PT INR APTT ABG pH ABG pO2 ABG HCO3 ABG O2 Saturation ABG Base Excess ABG Hemoglobin Oxyhemoglobin Sodium Potassium Chloride Carbon Dioxide BUN Creatinine Glucose POC Glucose 124 H 132 H 128 H Lactic Acid Calcium Ionized Calcium Phosphorus Magnesium Total Bilirubin AST ALT Alkaline Phosphatase Ammonia Total Creatine Kinase CK-MB (CK-2) CK-MB (CK-2) Rel Index Total Protein Albumin Urine WBC (Auto) Vancomycin Trough Salicylates Acetaminophen Plasma/Serum Alcohol Crossmatch 12/11/19 12/11/19 12/12/19 18:04 23:42 03:51 WBC RBC Hgb Hct MCH RDW Plt Count Lymph % (Auto) Moore % (Auto) Moore # Baso # Seg Neutrophils % Seg Neuts % (Manual) Lymphocytes % (Manual) Monocytes % (Manual) Seg Neutrophils # Seg Neutrophils # Man Lymphocytes # (Manual) Monocytes # (Manual) Eosinophils # (Manual) Basophils # (Manual) PT INR APTT ABG pH ABG pO2 ABG HCO3 ABG O2 Saturation ABG Base Excess ABG Hemoglobin Oxyhemoglobin Sodium 149 H Potassium Chloride Carbon Dioxide 20 L D BUN 77 H Creatinine 2.8 H Glucose POC Glucose 133 H 154 H Lactic Acid Calcium Ionized Calcium Phosphorus Magnesium Total Bilirubin AST ALT Alkaline Phosphatase Ammonia Total Creatine Kinase CK-MB (CK-2) CK-MB (CK-2) Rel Index Total Protein Albumin Urine WBC (Auto) Vancomycin Trough Salicylates Acetaminophen Plasma/Serum Alcohol Crossmatch 12/12/19 12/12/19 12/12/19 05:18 05:26 10:30 WBC 18.0 H RBC 2.51 L Hgb 6.8 L Hct 22.0 L MCH 27 L RDW 19.9 H Plt Count 582 H Lymph % (Auto) Moore % (Auto) Moore # Baso # Seg Neutrophils % Seg Neuts % (Manual) Lymphocytes % (Manual) Monocytes % (Manual) Seg Neutrophils # Seg Neutrophils # Man Lymphocytes # (Manual) Monocytes # (Manual) Eosinophils # (Manual) Basophils # (Manual) PT INR APTT ABG pH ABG pO2 ABG HCO3 ABG O2 Saturation ABG Base Excess ABG Hemoglobin Oxyhemoglobin Sodium Potassium Chloride Carbon Dioxide BUN Creatinine Glucose POC Glucose 135 H Lactic Acid Calcium Ionized Calcium Phosphorus Magnesium Total Bilirubin AST ALT Alkaline Phosphatase Ammonia Total Creatine Kinase CK-MB (CK-2) CK-MB (CK-2) Rel Index Total Protein Albumin Urine WBC (Auto) Vancomycin Trough Salicylates Acetaminophen Plasma/Serum Alcohol Crossmatch See Detail 12/12/19 12/12/19 12/12/19 11:44 18:10 23:21 WBC RBC Hgb Hct MCH RDW Plt Count Lymph % (Auto) Moore % (Auto) Moore # Baso # Seg Neutrophils % Seg Neuts % (Manual) Lymphocytes % (Manual) Monocytes % (Manual) Seg Neutrophils # Seg Neutrophils # Man Lymphocytes # (Manual) Monocytes # (Manual) Eosinophils # (Manual) Basophils # (Manual) PT INR APTT ABG pH ABG pO2 ABG HCO3 ABG O2 Saturation ABG Base Excess ABG Hemoglobin Oxyhemoglobin Sodium Potassium Chloride Carbon Dioxide BUN Creatinine Glucose POC Glucose 108 H 107 H 126 H Lactic Acid Calcium Ionized Calcium Phosphorus Magnesium Total Bilirubin AST ALT Alkaline Phosphatase Ammonia Total Creatine Kinase CK-MB (CK-2) CK-MB (CK-2) Rel Index Total Protein Albumin Urine WBC (Auto) Vancomycin Trough Salicylates Acetaminophen Plasma/Serum Alcohol Crossmatch 12/13/19 12/13/19 12/13/19 05:41 07:48 07:48 WBC 38.3 H RBC 2.37 L Hgb 6.3 L Hct 20.9 L MCH 27 L RDW 20.2 H Plt Count 546 H Lymph % (Auto) Moore % (Auto) Moore # Baso # Seg Neutrophils % Seg Neuts % (Manual) 93.0 H Lymphocytes % (Manual) 1.0 L Monocytes % (Manual) Seg Neutrophils # Seg Neutrophils # Man 35.6 H Lymphocytes # (Manual) 0.4 L Monocytes # (Manual) Eosinophils # (Manual) Basophils # (Manual) 0.4 H PT INR APTT ABG pH ABG pO2 ABG HCO3 ABG O2 Saturation ABG Base Excess ABG Hemoglobin Oxyhemoglobin Sodium 152 H Potassium 3.1 L D Chloride 111.9 H Carbon Dioxide 21 L BUN 53 H Creatinine 1.9 H Glucose 141 H POC Glucose 128 H Lactic Acid Calcium Ionized Calcium Phosphorus Magnesium Total Bilirubin AST ALT Alkaline Phosphatase 316 H Ammonia Total Creatine Kinase CK-MB (CK-2) CK-MB (CK-2) Rel Index Total Protein Albumin 2.4 L Urine WBC (Auto) Vancomycin Trough Salicylates Acetaminophen Plasma/Serum Alcohol Crossmatch 12/13/19 12/13/19 12/14/19 18:17 23:19 05:36 WBC RBC Hgb Hct MCH RDW Plt Count Lymph % (Auto) Moore % (Auto) Moore # Baso # Seg Neutrophils % Seg Neuts % (Manual) Lymphocytes % (Manual) Monocytes % (Manual) Seg Neutrophils # Seg Neutrophils # Man Lymphocytes # (Manual) Monocytes # (Manual) Eosinophils # (Manual) Basophils # (Manual) PT INR APTT ABG pH ABG pO2 ABG HCO3 ABG O2 Saturation ABG Base Excess ABG Hemoglobin Oxyhemoglobin Sodium Potassium Chloride Carbon Dioxide BUN Creatinine Glucose POC Glucose 141 H 158 H 182 H Lactic Acid Calcium Ionized Calcium Phosphorus Magnesium Total Bilirubin AST ALT Alkaline Phosphatase Ammonia Total Creatine Kinase CK-MB (CK-2) CK-MB (CK-2) Rel Index Total Protein Albumin Urine WBC (Auto) Vancomycin Trough Salicylates Acetaminophen Plasma/Serum Alcohol Crossmatch 12/14/19 12/14/19 12/14/19 08:48 08:48 10:31 WBC 33.3 H RBC 2.70 L Hgb 7.9 L 8.0 L Hct 25.3 L 24.0 L MCH RDW 19.2 H Plt Count 476 H Lymph % (Auto) Moore % (Auto) Moore # Baso # Seg Neutrophils % Seg Neuts % (Manual) Lymphocytes % (Manual) Monocytes % (Manual) Seg Neutrophils # Seg Neutrophils # Man Lymphocytes # (Manual) Monocytes # (Manual) Eosinophils # (Manual) Basophils # (Manual) PT INR APTT ABG pH ABG pO2 ABG HCO3 ABG O2 Saturation ABG Base Excess ABG Hemoglobin Oxyhemoglobin Sodium 153 H Potassium 2.5 L* Chloride 114.9 H Carbon Dioxide 20 L BUN 38 H Creatinine 1.4 H Glucose 177 H POC Glucose Lactic Acid Calcium Ionized Calcium Phosphorus Magnesium Total Bilirubin AST ALT Alkaline Phosphatase Ammonia Total Creatine Kinase CK-MB (CK-2) CK-MB (CK-2) Rel Index Total Protein Albumin Urine WBC (Auto) Vancomycin Trough Salicylates Acetaminophen Plasma/Serum Alcohol Crossmatch 12/14/19 12/14/19 12/14/19 12:57 16:15 17:50 WBC RBC Hgb Hct MCH RDW Plt Count Lymph % (Auto) Moore % (Auto) Moore # Baso # Seg Neutrophils % Seg Neuts % (Manual) Lymphocytes % (Manual) Monocytes % (Manual) Seg Neutrophils # Seg Neutrophils # Man Lymphocytes # (Manual) Monocytes # (Manual) Eosinophils # (Manual) Basophils # (Manual) PT INR APTT ABG pH ABG pO2 73.6 L ABG HCO3 ABG O2 Saturation ABG Base Excess ABG Hemoglobin 7.6 L Oxyhemoglobin 94.0 L Sodium Potassium Chloride Carbon Dioxide BUN Creatinine Glucose POC Glucose 174 H 150 H Lactic Acid Calcium Ionized Calcium Phosphorus Magnesium Total Bilirubin AST ALT Alkaline Phosphatase Ammonia Total Creatine Kinase CK-MB (CK-2) CK-MB (CK-2) Rel Index Total Protein Albumin Urine WBC (Auto) Vancomycin Trough Salicylates Acetaminophen Plasma/Serum Alcohol Crossmatch 12/15/19 12/15/19 12/15/19 00:28 05:27 07:23 WBC 30.0 H RBC 3.11 L Hgb 8.6 L Hct 27.7 L MCH RDW 20.0 H Plt Count 473 H Lymph % (Auto) Moore % (Auto) Moore # Baso # Seg Neutrophils % Seg Neuts % (Manual) Lymphocytes % (Manual) Monocytes % (Manual) Seg Neutrophils # Seg Neutrophils # Man Lymphocytes # (Manual) Monocytes # (Manual) Eosinophils # (Manual) Basophils # (Manual) PT INR APTT ABG pH ABG pO2 ABG HCO3 ABG O2 Saturation ABG Base Excess ABG Hemoglobin Oxyhemoglobin Sodium Potassium Chloride Carbon Dioxide BUN Creatinine Glucose POC Glucose 167 H 148 H Lactic Acid Calcium Ionized Calcium Phosphorus Magnesium Total Bilirubin AST ALT Alkaline Phosphatase Ammonia Total Creatine Kinase CK-MB (CK-2) CK-MB (CK-2) Rel Index Total Protein Albumin Urine WBC (Auto) Vancomycin Trough Salicylates Acetaminophen Plasma/Serum Alcohol Crossmatch 12/15/19 12/15/19 12/15/19 07:23 12:21 17:41 WBC RBC Hgb Hct MCH RDW Plt Count Lymph % (Auto) Moore % (Auto) Moore # Baso # Seg Neutrophils % Seg Neuts % (Manual) Lymphocytes % (Manual) Monocytes % (Manual) Seg Neutrophils # Seg Neutrophils # Man Lymphocytes # (Manual) Monocytes # (Manual) Eosinophils # (Manual) Basophils # (Manual) PT INR APTT ABG pH ABG pO2 ABG HCO3 ABG O2 Saturation ABG Base Excess ABG Hemoglobin Oxyhemoglobin Sodium 147 H Potassium 3.5 L D Chloride 111.2 H Carbon Dioxide 19 L BUN 29 H Creatinine Glucose 126 H POC Glucose 154 H 144 H Lactic Acid Calcium Ionized Calcium Phosphorus Magnesium Total Bilirubin AST ALT Alkaline Phosphatase Ammonia Total Creatine Kinase CK-MB (CK-2) CK-MB (CK-2) Rel Index Total Protein Albumin Urine WBC (Auto) Vancomycin Trough Salicylates Acetaminophen Plasma/Serum Alcohol Crossmatch 12/16/19 12/16/19 12/16/19 00:22 05:30 05:44 WBC 30.8 H RBC 2.58 L Hgb 7.1 L Hct 22.7 L MCH RDW 19.6 H Plt Count 451 H Lymph % (Auto) Moore % (Auto) Moore # Baso # Seg Neutrophils % Seg Neuts % (Manual) Lymphocytes % (Manual) Monocytes % (Manual) Seg Neutrophils # Seg Neutrophils # Man Lymphocytes # (Manual) Monocytes # (Manual) Eosinophils # (Manual) Basophils # (Manual) PT INR APTT ABG pH ABG pO2 ABG HCO3 ABG O2 Saturation ABG Base Excess ABG Hemoglobin Oxyhemoglobin Sodium Potassium Chloride Carbon Dioxide BUN Creatinine Glucose POC Glucose 139 H 126 H Lactic Acid Calcium Ionized Calcium Phosphorus Magnesium Total Bilirubin AST ALT Alkaline Phosphatase Ammonia Total Creatine Kinase CK-MB (CK-2) CK-MB (CK-2) Rel Index Total Protein Albumin Urine WBC (Auto) Vancomycin Trough Salicylates Acetaminophen Plasma/Serum Alcohol Crossmatch 12/16/19 12/16/19 12/16/19 05:44 11:48 17:37 WBC RBC Hgb Hct MCH RDW Plt Count Lymph % (Auto) Moore % (Auto) Moore # Baso # Seg Neutrophils % Seg Neuts % (Manual) Lymphocytes % (Manual) Monocytes % (Manual) Seg Neutrophils # Seg Neutrophils # Man Lymphocytes # (Manual) Monocytes # (Manual) Eosinophils # (Manual) Basophils # (Manual) PT INR APTT ABG pH ABG pO2 ABG HCO3 ABG O2 Saturation ABG Base Excess ABG Hemoglobin Oxyhemoglobin Sodium Potassium 3.4 L Chloride 109.2 H Carbon Dioxide 19 L BUN 27 H Creatinine Glucose 124 H POC Glucose 125 H 148 H Lactic Acid Calcium Ionized Calcium Phosphorus Magnesium Total Bilirubin AST ALT Alkaline Phosphatase Ammonia Total Creatine Kinase CK-MB (CK-2) CK-MB (CK-2) Rel Index Total Protein Albumin Urine WBC (Auto) Vancomycin Trough Salicylates Acetaminophen Plasma/Serum Alcohol Crossmatch 12/16/19 12/17/19 12/17/19 23:43 05:28 12:47 WBC RBC Hgb Hct MCH RDW Plt Count Lymph % (Auto) Moore % (Auto) Moore # Baso # Seg Neutrophils % Seg Neuts % (Manual) Lymphocytes % (Manual) Monocytes % (Manual) Seg Neutrophils # Seg Neutrophils # Man Lymphocytes # (Manual) Monocytes # (Manual) Eosinophils # (Manual) Basophils # (Manual) PT INR APTT ABG pH ABG pO2 ABG HCO3 ABG O2 Saturation ABG Base Excess ABG Hemoglobin Oxyhemoglobin Sodium Potassium Chloride Carbon Dioxide BUN Creatinine Glucose POC Glucose 142 H 140 H 125 H Lactic Acid Calcium Ionized Calcium Phosphorus Magnesium Total Bilirubin AST ALT Alkaline Phosphatase Ammonia Total Creatine Kinase CK-MB (CK-2) CK-MB (CK-2) Rel Index Total Protein Albumin Urine WBC (Auto) Vancomycin Trough Salicylates Acetaminophen Plasma/Serum Alcohol Crossmatch 12/17/19 12/17/19 12/17/19 17:05 18:00 Unknown WBC RBC Hgb Hct MCH RDW Plt Count Lymph % (Auto) Moore % (Auto) Moore # Baso # Seg Neutrophils % Seg Neuts % (Manual) Lymphocytes % (Manual) Monocytes % (Manual) Seg Neutrophils # Seg Neutrophils # Man Lymphocytes # (Manual) Monocytes # (Manual) Eosinophils # (Manual) Basophils # (Manual) PT INR APTT ABG pH ABG pO2 68.1 L ABG HCO3 ABG O2 Saturation 93.7 L ABG Base Excess ABG Hemoglobin 5.0 L Oxyhemoglobin 91.7 L Sodium Potassium Chloride Carbon Dioxide BUN Creatinine Glucose POC Glucose 140 H Lactic Acid Calcium Ionized Calcium Phosphorus Magnesium Total Bilirubin AST ALT Alkaline Phosphatase Ammonia Total Creatine Kinase CK-MB (CK-2) CK-MB (CK-2) Rel Index Total Protein Albumin Urine WBC (Auto) Vancomycin Trough Salicylates Acetaminophen Plasma/Serum Alcohol Crossmatch 12/18/19 12/18/19 12/18/19 00:16 04:53 04:53 WBC 28.6 H RBC 2.27 L Hgb 6.3 L Hct 19.5 L* MCH RDW 20.0 H Plt Count 497 H Lymph % (Auto) Moore % (Auto) Moore # Baso # Seg Neutrophils % Seg Neuts % (Manual) Lymphocytes % (Manual) Monocytes % (Manual) Seg Neutrophils # Seg Neutrophils # Man Lymphocytes # (Manual) Monocytes # (Manual) Eosinophils # (Manual) Basophils # (Manual) PT INR APTT ABG pH ABG pO2 ABG HCO3 ABG O2 Saturation ABG Base Excess ABG Hemoglobin Oxyhemoglobin Sodium Potassium Chloride 107.9 H Carbon Dioxide 20 L BUN 27 H Creatinine 0.6 L Glucose 116 H POC Glucose 123 H Lactic Acid Calcium Ionized Calcium Phosphorus Magnesium Total Bilirubin AST ALT Alkaline Phosphatase Ammonia Total Creatine Kinase CK-MB (CK-2) CK-MB (CK-2) Rel Index Total Protein Albumin Urine WBC (Auto) Vancomycin Trough Salicylates Acetaminophen Plasma/Serum Alcohol Crossmatch 12/18/19 12/18/19 12/18/19 06:38 11:22 12:08 WBC RBC Hgb Hct MCH RDW Plt Count Lymph % (Auto) Moore % (Auto) Moore # Baso # Seg Neutrophils % Seg Neuts % (Manual) Lymphocytes % (Manual) Monocytes % (Manual) Seg Neutrophils # Seg Neutrophils # Man Lymphocytes # (Manual) Monocytes # (Manual) Eosinophils # (Manual) Basophils # (Manual) PT INR APTT ABG pH ABG pO2 ABG HCO3 ABG O2 Saturation ABG Base Excess ABG Hemoglobin Oxyhemoglobin Sodium Potassium Chloride Carbon Dioxide BUN Creatinine Glucose POC Glucose 120 H 127 H Lactic Acid Calcium Ionized Calcium Phosphorus Magnesium Total Bilirubin AST ALT Alkaline Phosphatase Ammonia Total Creatine Kinase CK-MB (CK-2) CK-MB (CK-2) Rel Index Total Protein Albumin Urine WBC (Auto) Vancomycin Trough Salicylates Acetaminophen Plasma/Serum Alcohol Crossmatch See Detail 12/18/19 12/18/19 12/18/19 14:05 17:49 23:53 WBC RBC Hgb Hct MCH RDW Plt Count Lymph % (Auto) Moore % (Auto) Moore # Baso # Seg Neutrophils % Seg Neuts % (Manual) Lymphocytes % (Manual) Monocytes % (Manual) Seg Neutrophils # Seg Neutrophils # Man Lymphocytes # (Manual) Monocytes # (Manual) Eosinophils # (Manual) Basophils # (Manual) PT INR APTT ABG pH 7.267 L ABG pO2 69.8 L ABG HCO3 ABG O2 Saturation 88.4 L ABG Base Excess ABG Hemoglobin 7.1 L Oxyhemoglobin 86.4 L Sodium Potassium Chloride Carbon Dioxide BUN Creatinine Glucose POC Glucose 157 H 128 H Lactic Acid Calcium Ionized Calcium Phosphorus Magnesium Total Bilirubin AST ALT Alkaline Phosphatase Ammonia Total Creatine Kinase CK-MB (CK-2) CK-MB (CK-2) Rel Index Total Protein Albumin Urine WBC (Auto) Vancomycin Trough Salicylates Acetaminophen Plasma/Serum Alcohol Crossmatch 12/19/19 12/19/19 12/19/19 03:37 03:37 05:25 WBC 31.3 H RBC 2.60 L Hgb 7.6 L Hct 23.0 L MCH RDW 19.4 H Plt Count 530 H Lymph % (Auto) Moore % (Auto) Moore # Baso # Seg Neutrophils % Seg Neuts % (Manual) Lymphocytes % (Manual) Monocytes % (Manual) Seg Neutrophils # Seg Neutrophils # Man Lymphocytes # (Manual) Monocytes # (Manual) Eosinophils # (Manual) Basophils # (Manual) PT INR APTT ABG pH ABG pO2 ABG HCO3 ABG O2 Saturation ABG Base Excess ABG Hemoglobin Oxyhemoglobin Sodium Potassium Chloride Carbon Dioxide 18 L BUN 36 H Creatinine Glucose 111 H POC Glucose 123 H Lactic Acid Calcium Ionized Calcium Phosphorus Magnesium Total Bilirubin AST ALT Alkaline Phosphatase Ammonia Total Creatine Kinase CK-MB (CK-2) CK-MB (CK-2) Rel Index Total Protein Albumin Urine WBC (Auto) Vancomycin Trough Salicylates Acetaminophen Plasma/Serum Alcohol Crossmatch 12/19/19 12/19/19 12/20/19 12:59 18:33 00:00 WBC RBC Hgb Hct MCH RDW Plt Count Lymph % (Auto) Moore % (Auto) Moore # Baso # Seg Neutrophils % Seg Neuts % (Manual) Lymphocytes % (Manual) Monocytes % (Manual) Seg Neutrophils # Seg Neutrophils # Man Lymphocytes # (Manual) Monocytes # (Manual) Eosinophils # (Manual) Basophils # (Manual) PT INR APTT ABG pH ABG pO2 ABG HCO3 ABG O2 Saturation ABG Base Excess ABG Hemoglobin Oxyhemoglobin Sodium Potassium Chloride Carbon Dioxide BUN Creatinine Glucose POC Glucose 130 H 118 H 135 H Lactic Acid Calcium Ionized Calcium Phosphorus Magnesium Total Bilirubin AST ALT Alkaline Phosphatase Ammonia Total Creatine Kinase CK-MB (CK-2) CK-MB (CK-2) Rel Index Total Protein Albumin Urine WBC (Auto) Vancomycin Trough Salicylates Acetaminophen Plasma/Serum Alcohol Crossmatch 12/20/19 12/20/19 12/20/19 05:46 12:31 18:07 WBC RBC Hgb Hct MCH RDW Plt Count Lymph % (Auto) Moore % (Auto) Moore # Baso # Seg Neutrophils % Seg Neuts % (Manual) Lymphocytes % (Manual) Monocytes % (Manual) Seg Neutrophils # Seg Neutrophils # Man Lymphocytes # (Manual) Monocytes # (Manual) Eosinophils # (Manual) Basophils # (Manual) PT INR APTT ABG pH ABG pO2 ABG HCO3 ABG O2 Saturation ABG Base Excess ABG Hemoglobin Oxyhemoglobin Sodium Potassium Chloride Carbon Dioxide BUN Creatinine Glucose POC Glucose 131 H 128 H 134 H Lactic Acid Calcium Ionized Calcium Phosphorus Magnesium Total Bilirubin AST ALT Alkaline Phosphatase Ammonia Total Creatine Kinase CK-MB (CK-2) CK-MB (CK-2) Rel Index Total Protein Albumin Urine WBC (Auto) Vancomycin Trough Salicylates Acetaminophen Plasma/Serum Alcohol Crossmatch 12/21/19 12/21/19 12/21/19 03:28 03:28 07:21 WBC 29.4 H RBC 2.30 L Hgb 6.8 L Hct 20.2 L MCH RDW 20.2 H Plt Count 746 H Lymph % (Auto) Moore % (Auto) Moore # Baso # Seg Neutrophils % Seg Neuts % (Manual) 85.0 H Lymphocytes % (Manual) 8.0 L Monocytes % (Manual) Seg Neutrophils # Seg Neutrophils # Man 25.0 H Lymphocytes # (Manual) Monocytes # (Manual) 1.5 H Eosinophils # (Manual) 0.6 H Basophils # (Manual) PT INR APTT ABG pH ABG pO2 ABG HCO3 ABG O2 Saturation ABG Base Excess ABG Hemoglobin Oxyhemoglobin Sodium Potassium Chloride Carbon Dioxide 17 L BUN 57 H Creatinine 1.4 H D Glucose POC Glucose 124 H Lactic Acid Calcium Ionized Calcium Phosphorus Magnesium Total Bilirubin AST ALT Alkaline Phosphatase Ammonia Total Creatine Kinase CK-MB (CK-2) CK-MB (CK-2) Rel Index Total Protein Albumin Urine WBC (Auto) Vancomycin Trough Salicylates Acetaminophen Plasma/Serum Alcohol Crossmatch 12/21/19 12/21/19 12/21/19 08:56 12:06 14:53 WBC RBC Hgb 7.2 L Hct 22.9 L MCH RDW Plt Count Lymph % (Auto) Moore % (Auto) Moore # Baso # Seg Neutrophils % Seg Neuts % (Manual) Lymphocytes % (Manual) Monocytes % (Manual) Seg Neutrophils # Seg Neutrophils # Man Lymphocytes # (Manual) Monocytes # (Manual) Eosinophils # (Manual) Basophils # (Manual) PT INR APTT ABG pH ABG pO2 ABG HCO3 ABG O2 Saturation ABG Base Excess ABG Hemoglobin Oxyhemoglobin Sodium Potassium Chloride Carbon Dioxide BUN Creatinine Glucose POC Glucose 116 H Lactic Acid Calcium Ionized Calcium Phosphorus Magnesium Total Bilirubin AST ALT Alkaline Phosphatase Ammonia Total Creatine Kinase CK-MB (CK-2) CK-MB (CK-2) Rel Index Total Protein Albumin Urine WBC (Auto) Vancomycin Trough 33.8 H Salicylates Acetaminophen Plasma/Serum Alcohol Crossmatch 12/21/19 12/21/19 12/21/19 14:54 17:27 23:49 WBC RBC Hgb Hct MCH RDW Plt Count Lymph % (Auto) Moore % (Auto) Moore # Baso # Seg Neutrophils % Seg Neuts % (Manual) Lymphocytes % (Manual) Monocytes % (Manual) Seg Neutrophils # Seg Neutrophils # Man Lymphocytes # (Manual) Monocytes # (Manual) Eosinophils # (Manual) Basophils # (Manual) PT INR APTT ABG pH ABG pO2 ABG HCO3 ABG O2 Saturation ABG Base Excess ABG Hemoglobin Oxyhemoglobin Sodium Potassium Chloride Carbon Dioxide BUN Creatinine Glucose POC Glucose 145 H 127 H Lactic Acid Calcium Ionized Calcium Phosphorus Magnesium Total Bilirubin AST ALT Alkaline Phosphatase Ammonia Total Creatine Kinase CK-MB (CK-2) CK-MB (CK-2) Rel Index Total Protein Albumin Urine WBC (Auto) Vancomycin Trough Salicylates Acetaminophen Plasma/Serum Alcohol Crossmatch See Detail 12/22/19 12/22/19 12/22/19 04:43 05:56 08:40 WBC RBC Hgb Hct MCH RDW Plt Count Lymph % (Auto) Moore % (Auto) Moore # Baso # Seg Neutrophils % Seg Neuts % (Manual) Lymphocytes % (Manual) Monocytes % (Manual) Seg Neutrophils # Seg Neutrophils # Man Lymphocytes # (Manual) Monocytes # (Manual) Eosinophils # (Manual) Basophils # (Manual) PT INR APTT ABG pH ABG pO2 75.6 L ABG HCO3 ABG O2 Saturation ABG Base Excess -2.6 L ABG Hemoglobin 6.8 L Oxyhemoglobin 94.6 L Sodium Potassium Chloride Carbon Dioxide 17 L BUN 60 H Creatinine 1.4 H Glucose 126 H POC Glucose 153 H Lactic Acid Calcium Ionized Calcium Phosphorus Magnesium Total Bilirubin AST ALT Alkaline Phosphatase Ammonia Total Creatine Kinase CK-MB (CK-2) CK-MB (CK-2) Rel Index Total Protein Albumin Urine WBC (Auto) Vancomycin Trough Salicylates Acetaminophen Plasma/Serum Alcohol Crossmatch 12/22/19 12/22/19 12/23/19 12:07 17:49 04:30 WBC 22.4 H RBC 2.68 L Hgb 7.6 L Hct 22.9 L MCH RDW 19.9 H Plt Count 998 H Lymph % (Auto) Moore % (Auto) Moore # Baso # Seg Neutrophils % Seg Neuts % (Manual) 88.0 H Lymphocytes % (Manual) 2.0 L Monocytes % (Manual) 9.0 H Seg Neutrophils # Seg Neutrophils # Man 19.7 H Lymphocytes # (Manual) 0.4 L Monocytes # (Manual) 2.0 H Eosinophils # (Manual) Basophils # (Manual) PT INR APTT ABG pH ABG pO2 ABG HCO3 ABG O2 Saturation ABG Base Excess ABG Hemoglobin Oxyhemoglobin Sodium Potassium Chloride Carbon Dioxide BUN Creatinine Glucose POC Glucose 140 H 116 H Lactic Acid Calcium Ionized Calcium Phosphorus Magnesium Total Bilirubin AST ALT Alkaline Phosphatase Ammonia Total Creatine Kinase CK-MB (CK-2) CK-MB (CK-2) Rel Index Total Protein Albumin Urine WBC (Auto) Vancomycin Trough Salicylates Acetaminophen Plasma/Serum Alcohol Crossmatch 12/23/19 12/23/19 12/23/19 04:30 12:00 18:06 WBC RBC Hgb Hct MCH RDW Plt Count Lymph % (Auto) Moore % (Auto) Moore # Baso # Seg Neutrophils % Seg Neuts % (Manual) Lymphocytes % (Manual) Monocytes % (Manual) Seg Neutrophils # Seg Neutrophils # Man Lymphocytes # (Manual) Monocytes # (Manual) Eosinophils # (Manual) Basophils # (Manual) PT INR APTT ABG pH ABG pO2 ABG HCO3 ABG O2 Saturation ABG Base Excess ABG Hemoglobin Oxyhemoglobin Sodium Potassium 5.2 H Chloride Carbon Dioxide 21 L BUN 69 H Creatinine 1.5 H Glucose 117 H POC Glucose 128 H 138 H Lactic Acid Calcium Ionized Calcium Phosphorus Magnesium Total Bilirubin AST ALT Alkaline Phosphatase Ammonia Total Creatine Kinase CK-MB (CK-2) CK-MB (CK-2) Rel Index Total Protein Albumin Urine WBC (Auto) Vancomycin Trough Salicylates Acetaminophen Plasma/Serum Alcohol Crossmatch 12/23/19 12/24/19 12/24/19 23:46 04:31 05:08 WBC RBC Hgb Hct MCH RDW Plt Count Lymph % (Auto) Moore % (Auto) Moore # Baso # Seg Neutrophils % Seg Neuts % (Manual) Lymphocytes % (Manual) Monocytes % (Manual) Seg Neutrophils # Seg Neutrophils # Man Lymphocytes # (Manual) Monocytes # (Manual) Eosinophils # (Manual) Basophils # (Manual) PT INR APTT ABG pH ABG pO2 ABG HCO3 ABG O2 Saturation ABG Base Excess ABG Hemoglobin Oxyhemoglobin Sodium Potassium 5.3 H Chloride 107.6 H Carbon Dioxide 20 L BUN 72 H Creatinine 1.6 H Glucose 120 H POC Glucose 120 H 140 H Lactic Acid Calcium Ionized Calcium Phosphorus Magnesium Total Bilirubin AST ALT Alkaline Phosphatase Ammonia Total Creatine Kinase CK-MB (CK-2) CK-MB (CK-2) Rel Index Total Protein Albumin Urine WBC (Auto) Vancomycin Trough Salicylates Acetaminophen Plasma/Serum Alcohol Crossmatch 12/24/19 12/24/19 12/25/19 11:58 17:49 03:47 WBC 36.2 H RBC 2.92 L Hgb 8.4 L Hct 26.1 L MCH RDW 20.2 H Plt Count 942 H Lymph % (Auto) Moore % (Auto) Moore # Baso # Seg Neutrophils % Seg Neuts % (Manual) 97.5 H Lymphocytes % (Manual) 1.0 L Monocytes % (Manual) Seg Neutrophils # Seg Neutrophils # Man 35.3 H Lymphocytes # (Manual) 0.4 L Monocytes # (Manual) Eosinophils # (Manual) Basophils # (Manual) PT INR APTT ABG pH ABG pO2 ABG HCO3 ABG O2 Saturation ABG Base Excess ABG Hemoglobin Oxyhemoglobin Sodium Potassium Chloride Carbon Dioxide BUN Creatinine Glucose POC Glucose 146 H 131 H Lactic Acid Calcium Ionized Calcium Phosphorus Magnesium Total Bilirubin AST ALT Alkaline Phosphatase Ammonia Total Creatine Kinase CK-MB (CK-2) CK-MB (CK-2) Rel Index Total Protein Albumin Urine WBC (Auto) Vancomycin Trough Salicylates Acetaminophen Plasma/Serum Alcohol Crossmatch 12/25/19 12/25/19 12/25/19 03:47 05:30 12:23 WBC RBC Hgb Hct MCH RDW Plt Count Lymph % (Auto) Moore % (Auto) Moore # Baso # Seg Neutrophils % Seg Neuts % (Manual) Lymphocytes % (Manual) Monocytes % (Manual) Seg Neutrophils # Seg Neutrophils # Man Lymphocytes # (Manual) Monocytes # (Manual) Eosinophils # (Manual) Basophils # (Manual) PT INR APTT ABG pH ABG pO2 ABG HCO3 ABG O2 Saturation ABG Base Excess ABG Hemoglobin Oxyhemoglobin Sodium Potassium Chloride Carbon Dioxide 15 L BUN 70 H Creatinine 1.7 H Glucose 153 H POC Glucose 169 H 135 H Lactic Acid Calcium Ionized Calcium Phosphorus Magnesium Total Bilirubin AST ALT Alkaline Phosphatase Ammonia Total Creatine Kinase CK-MB (CK-2) CK-MB (CK-2) Rel Index Total Protein Albumin Urine WBC (Auto) Vancomycin Trough Salicylates Acetaminophen Plasma/Serum Alcohol Crossmatch 12/25/19 12/25/19 12/26/19 17:37 23:29 09:47 WBC 22.1 H RBC 2.83 L Hgb 7.9 L Hct 25.5 L MCH RDW 20.0 H Plt Count 894 H Lymph % (Auto) Moore % (Auto) Moore # Baso # Seg Neutrophils % Seg Neuts % (Manual) Lymphocytes % (Manual) Monocytes % (Manual) Seg Neutrophils # Seg Neutrophils # Man Lymphocytes # (Manual) Monocytes # (Manual) Eosinophils # (Manual) Basophils # (Manual) PT INR APTT ABG pH ABG pO2 ABG HCO3 ABG O2 Saturation ABG Base Excess ABG Hemoglobin Oxyhemoglobin Sodium Potassium Chloride Carbon Dioxide BUN Creatinine Glucose POC Glucose 120 H 140 H Lactic Acid Calcium Ionized Calcium Phosphorus Magnesium Total Bilirubin AST ALT Alkaline Phosphatase Ammonia Total Creatine Kinase CK-MB (CK-2) CK-MB (CK-2) Rel Index Total Protein Albumin Urine WBC (Auto) Vancomycin Trough Salicylates Acetaminophen Plasma/Serum Alcohol Crossmatch 12/26/19 12/26/19 12/26/19 09:47 11:46 17:52 WBC RBC Hgb Hct MCH RDW Plt Count Lymph % (Auto) Moore % (Auto) Moore # Baso # Seg Neutrophils % Seg Neuts % (Manual) Lymphocytes % (Manual) Monocytes % (Manual) Seg Neutrophils # Seg Neutrophils # Man Lymphocytes # (Manual) Monocytes # (Manual) Eosinophils # (Manual) Basophils # (Manual) PT INR APTT ABG pH ABG pO2 ABG HCO3 ABG O2 Saturation ABG Base Excess ABG Hemoglobin Oxyhemoglobin Sodium Potassium Chloride Carbon Dioxide 18 L BUN 65 H Creatinine 1.4 H Glucose 132 H POC Glucose 110 H 145 H Lactic Acid Calcium Ionized Calcium Phosphorus Magnesium Total Bilirubin AST ALT Alkaline Phosphatase Ammonia Total Creatine Kinase CK-MB (CK-2) CK-MB (CK-2) Rel Index Total Protein Albumin Urine WBC (Auto) Vancomycin Trough Salicylates Acetaminophen Plasma/Serum Alcohol Crossmatch 12/27/19 12/27/19 12/27/19 00:01 03:42 03:42 WBC 18.0 H RBC 2.86 L Hgb 8.0 L Hct 25.2 L MCH RDW 19.2 H Plt Count 873 H Lymph % (Auto) 8.4 L Moore % (Auto) 7.5 H Moore # 1.4 H Baso # 0.2 H Seg Neutrophils % 82.2 H Seg Neuts % (Manual) Lymphocytes % (Manual) Monocytes % (Manual) Seg Neutrophils # 14.8 H Seg Neutrophils # Man Lymphocytes # (Manual) Monocytes # (Manual) Eosinophils # (Manual) Basophils # (Manual) PT INR APTT ABG pH ABG pO2 ABG HCO3 ABG O2 Saturation ABG Base Excess ABG Hemoglobin Oxyhemoglobin Sodium Potassium Chloride Carbon Dioxide BUN 73 H Creatinine 1.4 H Glucose 119 H POC Glucose 124 H Lactic Acid Calcium Ionized Calcium Phosphorus Magnesium Total Bilirubin AST ALT Alkaline Phosphatase Ammonia Total Creatine Kinase CK-MB (CK-2) CK-MB (CK-2) Rel Index Total Protein Albumin Urine WBC (Auto) Vancomycin Trough Salicylates Acetaminophen Plasma/Serum Alcohol Crossmatch 12/27/19 12/27/19 12/27/19 05:45 11:45 17:29 WBC RBC Hgb Hct MCH RDW Plt Count Lymph % (Auto) Moore % (Auto) Moore # Baso # Seg Neutrophils % Seg Neuts % (Manual) Lymphocytes % (Manual) Monocytes % (Manual) Seg Neutrophils # Seg Neutrophils # Man Lymphocytes # (Manual) Monocytes # (Manual) Eosinophils # (Manual) Basophils # (Manual) PT INR APTT ABG pH ABG pO2 ABG HCO3 ABG O2 Saturation ABG Base Excess ABG Hemoglobin Oxyhemoglobin Sodium Potassium Chloride Carbon Dioxide BUN Creatinine Glucose POC Glucose 131 H 123 H 134 H Lactic Acid Calcium Ionized Calcium Phosphorus Magnesium Total Bilirubin AST ALT Alkaline Phosphatase Ammonia Total Creatine Kinase CK-MB (CK-2) CK-MB (CK-2) Rel Index Total Protein Albumin Urine WBC (Auto) Vancomycin Trough Salicylates Acetaminophen Plasma/Serum Alcohol Crossmatch 12/28/19 12/28/19 12/28/19 00:12 05:14 11:53 WBC RBC Hgb Hct MCH RDW Plt Count Lymph % (Auto) Moore % (Auto) Moore # Baso # Seg Neutrophils % Seg Neuts % (Manual) Lymphocytes % (Manual) Monocytes % (Manual) Seg Neutrophils # Seg Neutrophils # Man Lymphocytes # (Manual) Monocytes # (Manual) Eosinophils # (Manual) Basophils # (Manual) PT INR APTT ABG pH ABG pO2 ABG HCO3 ABG O2 Saturation ABG Base Excess ABG Hemoglobin Oxyhemoglobin Sodium Potassium Chloride Carbon Dioxide BUN Creatinine Glucose POC Glucose 138 H 130 H 146 H Lactic Acid Calcium Ionized Calcium Phosphorus Magnesium Total Bilirubin AST ALT Alkaline Phosphatase Ammonia Total Creatine Kinase CK-MB (CK-2) CK-MB (CK-2) Rel Index Total Protein Albumin Urine WBC (Auto) Vancomycin Trough Salicylates Acetaminophen Plasma/Serum Alcohol Crossmatch 12/28/19 12/29/19 12/29/19 17:39 00:01 18:11 WBC RBC Hgb Hct MCH RDW Plt Count Lymph % (Auto) Moore % (Auto) Moore # Baso # Seg Neutrophils % Seg Neuts % (Manual) Lymphocytes % (Manual) Monocytes % (Manual) Seg Neutrophils # Seg Neutrophils # Man Lymphocytes # (Manual) Monocytes # (Manual) Eosinophils # (Manual) Basophils # (Manual) PT INR APTT ABG pH ABG pO2 ABG HCO3 ABG O2 Saturation ABG Base Excess ABG Hemoglobin Oxyhemoglobin Sodium Potassium Chloride Carbon Dioxide BUN Creatinine Glucose POC Glucose 117 H 139 H 130 H Lactic Acid Calcium Ionized Calcium Phosphorus Magnesium Total Bilirubin AST ALT Alkaline Phosphatase Ammonia Total Creatine Kinase CK-MB (CK-2) CK-MB (CK-2) Rel Index Total Protein Albumin Urine WBC (Auto) Vancomycin Trough Salicylates Acetaminophen Plasma/Serum Alcohol Crossmatch 12/29/19 12/30/19 12/30/19 23:09 00:02 01:06 WBC 16.7 H RBC 2.91 L Hgb 8.2 L Hct 25.4 L MCH RDW 18.7 H Plt Count 708 H Lymph % (Auto) 9.4 L Moore % (Auto) Moore # 0.9 H Baso # Seg Neutrophils % 83.5 H Seg Neuts % (Manual) Lymphocytes % (Manual) Monocytes % (Manual) Seg Neutrophils # 14.0 H Seg Neutrophils # Man Lymphocytes # (Manual) Monocytes # (Manual) Eosinophils # (Manual) Basophils # (Manual) PT INR APTT ABG pH ABG pO2 ABG HCO3 ABG O2 Saturation ABG Base Excess ABG Hemoglobin Oxyhemoglobin Sodium Potassium Chloride Carbon Dioxide BUN Creatinine Glucose POC Glucose 120 H 114 H Lactic Acid Calcium Ionized Calcium Phosphorus Magnesium Total Bilirubin AST ALT Alkaline Phosphatase Ammonia Total Creatine Kinase CK-MB (CK-2) CK-MB (CK-2) Rel Index Total Protein Albumin Urine WBC (Auto) Vancomycin Trough Salicylates Acetaminophen Plasma/Serum Alcohol Crossmatch 12/30/19 12/30/19 12/30/19 01:06 04:23 05:18 WBC RBC Hgb Hct MCH RDW Plt Count Lymph % (Auto) Moore % (Auto) Moore # Baso # Seg Neutrophils % Seg Neuts % (Manual) Lymphocytes % (Manual) Monocytes % (Manual) Seg Neutrophils # Seg Neutrophils # Man Lymphocytes # (Manual) Monocytes # (Manual) Eosinophils # (Manual) Basophils # (Manual) PT INR APTT ABG pH ABG pO2 ABG HCO3 ABG O2 Saturation ABG Base Excess ABG Hemoglobin 8.3 L Oxyhemoglobin Sodium Potassium Chloride Carbon Dioxide BUN 70 H Creatinine Glucose 122 H POC Glucose 130 H Lactic Acid Calcium Ionized Calcium Phosphorus Magnesium Total Bilirubin AST ALT Alkaline Phosphatase Ammonia Total Creatine Kinase CK-MB (CK-2) CK-MB (CK-2) Rel Index Total Protein Albumin Urine WBC (Auto) Vancomycin Trough Salicylates Acetaminophen Plasma/Serum Alcohol Crossmatch 12/30/19 12/30/19 12/30/19 05:40 12:17 17:43 WBC RBC Hgb Hct MCH RDW Plt Count Lymph % (Auto) Moore % (Auto) Moore # Baso # Seg Neutrophils % Seg Neuts % (Manual) Lymphocytes % (Manual) Monocytes % (Manual) Seg Neutrophils # Seg Neutrophils # Man Lymphocytes # (Manual) Monocytes # (Manual) Eosinophils # (Manual) Basophils # (Manual) PT INR APTT ABG pH ABG pO2 ABG HCO3 ABG O2 Saturation ABG Base Excess ABG Hemoglobin Oxyhemoglobin Sodium Potassium Chloride Carbon Dioxide BUN Creatinine Glucose POC Glucose 135 H 132 H 118 H Lactic Acid Calcium Ionized Calcium Phosphorus Magnesium Total Bilirubin AST ALT Alkaline Phosphatase Ammonia Total Creatine Kinase CK-MB (CK-2) CK-MB (CK-2) Rel Index Total Protein Albumin Urine WBC (Auto) Vancomycin Trough Salicylates Acetaminophen Plasma/Serum Alcohol Crossmatch 12/30/19 12/31/19 12/31/19 23:29 05:19 17:50 WBC RBC Hgb Hct MCH RDW Plt Count Lymph % (Auto) Moore % (Auto) Moore # Baso # Seg Neutrophils % Seg Neuts % (Manual) Lymphocytes % (Manual) Monocytes % (Manual) Seg Neutrophils # Seg Neutrophils # Man Lymphocytes # (Manual) Monocytes # (Manual) Eosinophils # (Manual) Basophils # (Manual) PT INR APTT ABG pH ABG pO2 ABG HCO3 ABG O2 Saturation ABG Base Excess ABG Hemoglobin Oxyhemoglobin Sodium Potassium Chloride Carbon Dioxide BUN Creatinine Glucose POC Glucose 114 H 109 H 116 H Lactic Acid Calcium Ionized Calcium Phosphorus Magnesium Total Bilirubin AST ALT Alkaline Phosphatase Ammonia Total Creatine Kinase CK-MB (CK-2) CK-MB (CK-2) Rel Index Total Protein Albumin Urine WBC (Auto) Vancomycin Trough Salicylates Acetaminophen Plasma/Serum Alcohol Crossmatch 01/01/20 01/01/20 01/01/20 00:10 05:19 12:02 WBC RBC Hgb Hct MCH RDW Plt Count Lymph % (Auto) Moore % (Auto) Moore # Baso # Seg Neutrophils % Seg Neuts % (Manual) Lymphocytes % (Manual) Monocytes % (Manual) Seg Neutrophils # Seg Neutrophils # Man Lymphocytes # (Manual) Monocytes # (Manual) Eosinophils # (Manual) Basophils # (Manual) PT INR APTT ABG pH ABG pO2 ABG HCO3 ABG O2 Saturation ABG Base Excess ABG Hemoglobin Oxyhemoglobin Sodium Potassium Chloride Carbon Dioxide BUN Creatinine Glucose POC Glucose 131 H 122 H 136 H Lactic Acid Calcium Ionized Calcium Phosphorus Magnesium Total Bilirubin AST ALT Alkaline Phosphatase Ammonia Total Creatine Kinase CK-MB (CK-2) CK-MB (CK-2) Rel Index Total Protein Albumin Urine WBC (Auto) Vancomycin Trough Salicylates Acetaminophen Plasma/Serum Alcohol Crossmatch 01/02/20 01/02/20 01/02/20 00:24 05:36 11:41 WBC RBC Hgb Hct MCH RDW Plt Count Lymph % (Auto) Moore % (Auto) Moore # Baso # Seg Neutrophils % Seg Neuts % (Manual) Lymphocytes % (Manual) Monocytes % (Manual) Seg Neutrophils # Seg Neutrophils # Man Lymphocytes # (Manual) Monocytes # (Manual) Eosinophils # (Manual) Basophils # (Manual) PT INR APTT ABG pH ABG pO2 ABG HCO3 ABG O2 Saturation ABG Base Excess ABG Hemoglobin Oxyhemoglobin Sodium Potassium Chloride Carbon Dioxide BUN Creatinine Glucose POC Glucose 119 H 109 H 125 H Lactic Acid Calcium Ionized Calcium Phosphorus Magnesium Total Bilirubin AST ALT Alkaline Phosphatase Ammonia Total Creatine Kinase CK-MB (CK-2) CK-MB (CK-2) Rel Index Total Protein Albumin Urine WBC (Auto) Vancomycin Trough Salicylates Acetaminophen Plasma/Serum Alcohol Crossmatch 01/02/20 01/03/20 01/03/20 17:49 05:29 12:13 WBC RBC Hgb Hct MCH RDW Plt Count Lymph % (Auto) Moore % (Auto) Moore # Baso # Seg Neutrophils % Seg Neuts % (Manual) Lymphocytes % (Manual) Monocytes % (Manual) Seg Neutrophils # Seg Neutrophils # Man Lymphocytes # (Manual) Monocytes # (Manual) Eosinophils # (Manual) Basophils # (Manual) PT INR APTT ABG pH ABG pO2 ABG HCO3 ABG O2 Saturation ABG Base Excess ABG Hemoglobin Oxyhemoglobin Sodium Potassium Chloride Carbon Dioxide BUN Creatinine Glucose POC Glucose 130 H 132 H 113 H Lactic Acid Calcium Ionized Calcium Phosphorus Magnesium Total Bilirubin AST ALT Alkaline Phosphatase Ammonia Total Creatine Kinase CK-MB (CK-2) CK-MB (CK-2) Rel Index Total Protein Albumin Urine WBC (Auto) Vancomycin Trough Salicylates Acetaminophen Plasma/Serum Alcohol Crossmatch 01/03/20 01/04/20 01/04/20 17:32 00:19 05:26 WBC RBC Hgb Hct MCH RDW Plt Count Lymph % (Auto) Moore % (Auto) Moore # Baso # Seg Neutrophils % Seg Neuts % (Manual) Lymphocytes % (Manual) Monocytes % (Manual) Seg Neutrophils # Seg Neutrophils # Man Lymphocytes # (Manual) Monocytes # (Manual) Eosinophils # (Manual) Basophils # (Manual) PT INR APTT ABG pH ABG pO2 ABG HCO3 ABG O2 Saturation ABG Base Excess ABG Hemoglobin Oxyhemoglobin Sodium Potassium Chloride Carbon Dioxide BUN Creatinine Glucose POC Glucose 127 H 141 H 129 H Lactic Acid Calcium Ionized Calcium Phosphorus Magnesium Total Bilirubin AST ALT Alkaline Phosphatase Ammonia Total Creatine Kinase CK-MB (CK-2) CK-MB (CK-2) Rel Index Total Protein Albumin Urine WBC (Auto) Vancomycin Trough Salicylates Acetaminophen Plasma/Serum Alcohol Crossmatch 01/04/20 01/04/20 01/05/20 11:39 17:29 05:22 WBC RBC Hgb Hct MCH RDW Plt Count Lymph % (Auto) Moore % (Auto) Moore # Baso # Seg Neutrophils % Seg Neuts % (Manual) Lymphocytes % (Manual) Monocytes % (Manual) Seg Neutrophils # Seg Neutrophils # Man Lymphocytes # (Manual) Monocytes # (Manual) Eosinophils # (Manual) Basophils # (Manual) PT INR APTT ABG pH ABG pO2 ABG HCO3 ABG O2 Saturation ABG Base Excess ABG Hemoglobin Oxyhemoglobin Sodium Potassium Chloride Carbon Dioxide BUN Creatinine Glucose POC Glucose 167 H 132 H 121 H Lactic Acid Calcium Ionized Calcium Phosphorus Magnesium Total Bilirubin AST ALT Alkaline Phosphatase Ammonia Total Creatine Kinase CK-MB (CK-2) CK-MB (CK-2) Rel Index Total Protein Albumin Urine WBC (Auto) Vancomycin Trough Salicylates Acetaminophen Plasma/Serum Alcohol Crossmatch 01/05/20 01/05/20 01/05/20 12:25 17:40 18:06 WBC RBC Hgb Hct MCH RDW Plt Count Lymph % (Auto) Moore % (Auto) Moore # Baso # Seg Neutrophils % Seg Neuts % (Manual) Lymphocytes % (Manual) Monocytes % (Manual) Seg Neutrophils # Seg Neutrophils # Man Lymphocytes # (Manual) Monocytes # (Manual) Eosinophils # (Manual) Basophils # (Manual) PT INR APTT ABG pH 7.472 H ABG pO2 99.2 H ABG HCO3 ABG O2 Saturation ABG Base Excess ABG Hemoglobin 7.8 L Oxyhemoglobin Sodium Potassium Chloride Carbon Dioxide BUN Creatinine Glucose POC Glucose 106 H 110 H Lactic Acid Calcium Ionized Calcium Phosphorus Magnesium Total Bilirubin AST ALT Alkaline Phosphatase Ammonia Total Creatine Kinase CK-MB (CK-2) CK-MB (CK-2) Rel Index Total Protein Albumin Urine WBC (Auto) Vancomycin Trough Salicylates Acetaminophen Plasma/Serum Alcohol Crossmatch 01/06/20 01/06/20 01/06/20 00:11 05:16 11:30 WBC RBC Hgb Hct MCH RDW Plt Count Lymph % (Auto) Moore % (Auto) Moore # Baso # Seg Neutrophils % Seg Neuts % (Manual) Lymphocytes % (Manual) Monocytes % (Manual) Seg Neutrophils # Seg Neutrophils # Man Lymphocytes # (Manual) Monocytes # (Manual) Eosinophils # (Manual) Basophils # (Manual) PT INR APTT ABG pH ABG pO2 ABG HCO3 ABG O2 Saturation ABG Base Excess ABG Hemoglobin Oxyhemoglobin Sodium Potassium Chloride Carbon Dioxide BUN Creatinine Glucose POC Glucose 108 H 124 H 125 H Lactic Acid Calcium Ionized Calcium Phosphorus Magnesium Total Bilirubin AST ALT Alkaline Phosphatase Ammonia Total Creatine Kinase CK-MB (CK-2) CK-MB (CK-2) Rel Index Total Protein Albumin Urine WBC (Auto) Vancomycin Trough Salicylates Acetaminophen Plasma/Serum Alcohol Crossmatch 01/06/20 01/06/20 01/07/20 17:53 23:51 04:12 WBC 16.5 H RBC 3.29 L Hgb 9.3 L Hct 28.1 L MCH RDW 18.2 H Plt Count 526 H Lymph % (Auto) 8.4 L Moore % (Auto) Moore # 1.0 H Baso # Seg Neutrophils % 84.4 H Seg Neuts % (Manual) Lymphocytes % (Manual) Monocytes % (Manual) Seg Neutrophils # 13.9 H Seg Neutrophils # Man Lymphocytes # (Manual) Monocytes # (Manual) Eosinophils # (Manual) Basophils # (Manual) PT INR APTT ABG pH ABG pO2 ABG HCO3 ABG O2 Saturation ABG Base Excess ABG Hemoglobin Oxyhemoglobin Sodium Potassium Chloride Carbon Dioxide BUN Creatinine Glucose POC Glucose 166 H 128 H Lactic Acid Calcium Ionized Calcium Phosphorus Magnesium Total Bilirubin AST ALT Alkaline Phosphatase Ammonia Total Creatine Kinase CK-MB (CK-2) CK-MB (CK-2) Rel Index Total Protein Albumin Urine WBC (Auto) Vancomycin Trough Salicylates Acetaminophen Plasma/Serum Alcohol Crossmatch 01/07/20 01/07/20 01/07/20 04:12 04:45 11:51 WBC RBC Hgb Hct MCH RDW Plt Count Lymph % (Auto) Moore % (Auto) Moore # Baso # Seg Neutrophils % Seg Neuts % (Manual) Lymphocytes % (Manual) Monocytes % (Manual) Seg Neutrophils # Seg Neutrophils # Man Lymphocytes # (Manual) Monocytes # (Manual) Eosinophils # (Manual) Basophils # (Manual) PT INR APTT ABG pH ABG pO2 ABG HCO3 ABG O2 Saturation ABG Base Excess ABG Hemoglobin Oxyhemoglobin Sodium 136 L Potassium Chloride Carbon Dioxide 21 L BUN 44 H Creatinine 0.6 L Glucose 124 H POC Glucose 134 H 138 H Lactic Acid Calcium Ionized Calcium Phosphorus Magnesium Total Bilirubin AST ALT Alkaline Phosphatase Ammonia Total Creatine Kinase CK-MB (CK-2) CK-MB (CK-2) Rel Index Total Protein Albumin Urine WBC (Auto) Vancomycin Trough Salicylates Acetaminophen Plasma/Serum Alcohol Crossmatch 01/07/20 01/08/20 01/08/20 17:36 00:33 05:29 WBC RBC Hgb Hct MCH RDW Plt Count Lymph % (Auto) Moore % (Auto) Moore # Baso # Seg Neutrophils % Seg Neuts % (Manual) Lymphocytes % (Manual) Monocytes % (Manual) Seg Neutrophils # Seg Neutrophils # Man Lymphocytes # (Manual) Monocytes # (Manual) Eosinophils # (Manual) Basophils # (Manual) PT INR APTT ABG pH ABG pO2 ABG HCO3 ABG O2 Saturation ABG Base Excess ABG Hemoglobin Oxyhemoglobin Sodium Potassium Chloride Carbon Dioxide BUN Creatinine Glucose POC Glucose 128 H 119 H 124 H Lactic Acid Calcium Ionized Calcium Phosphorus Magnesium Total Bilirubin AST ALT Alkaline Phosphatase Ammonia Total Creatine Kinase CK-MB (CK-2) CK-MB (CK-2) Rel Index Total Protein Albumin Urine WBC (Auto) Vancomycin Trough Salicylates Acetaminophen Plasma/Serum Alcohol Crossmatch 01/08/20 01/08/20 01/08/20 12:51 20:25 23:22 WBC RBC Hgb Hct MCH RDW Plt Count Lymph % (Auto) Moore % (Auto) Moore # Baso # Seg Neutrophils % Seg Neuts % (Manual) Lymphocytes % (Manual) Monocytes % (Manual) Seg Neutrophils # Seg Neutrophils # Man Lymphocytes # (Manual) Monocytes # (Manual) Eosinophils # (Manual) Basophils # (Manual) PT INR APTT ABG pH ABG pO2 132.2 H ABG HCO3 ABG O2 Saturation ABG Base Excess ABG Hemoglobin Oxyhemoglobin Sodium Potassium Chloride Carbon Dioxide BUN Creatinine Glucose POC Glucose 128 H 127 H Lactic Acid Calcium Ionized Calcium Phosphorus Magnesium Total Bilirubin AST ALT Alkaline Phosphatase Ammonia Total Creatine Kinase CK-MB (CK-2) CK-MB (CK-2) Rel Index Total Protein Albumin Urine WBC (Auto) Vancomycin Trough Salicylates Acetaminophen Plasma/Serum Alcohol Crossmatch 01/09/20 01/09/20 01/09/20 05:48 08:51 11:29 WBC RBC Hgb Hct MCH RDW Plt Count Lymph % (Auto) Moore % (Auto) Moore # Baso # Seg Neutrophils % Seg Neuts % (Manual) Lymphocytes % (Manual) Monocytes % (Manual) Seg Neutrophils # Seg Neutrophils # Man Lymphocytes # (Manual) Monocytes # (Manual) Eosinophils # (Manual) Basophils # (Manual) PT INR APTT ABG pH ABG pO2 94.3 H ABG HCO3 ABG O2 Saturation ABG Base Excess ABG Hemoglobin 9.5 L Oxyhemoglobin Sodium Potassium Chloride Carbon Dioxide BUN Creatinine Glucose POC Glucose 120 H 112 H Lactic Acid Calcium Ionized Calcium Phosphorus Magnesium Total Bilirubin AST ALT Alkaline Phosphatase Ammonia Total Creatine Kinase CK-MB (CK-2) CK-MB (CK-2) Rel Index Total Protein Albumin Urine WBC (Auto) Vancomycin Trough Salicylates Acetaminophen Plasma/Serum Alcohol Crossmatch 01/09/20 01/10/20 01/10/20 17:57 05:17 12:28 WBC RBC Hgb Hct MCH RDW Plt Count Lymph % (Auto) Moore % (Auto) Moore # Baso # Seg Neutrophils % Seg Neuts % (Manual) Lymphocytes % (Manual) Monocytes % (Manual) Seg Neutrophils # Seg Neutrophils # Man Lymphocytes # (Manual) Monocytes # (Manual) Eosinophils # (Manual) Basophils # (Manual) PT INR APTT ABG pH ABG pO2 ABG HCO3 ABG O2 Saturation ABG Base Excess ABG Hemoglobin Oxyhemoglobin Sodium Potassium Chloride Carbon Dioxide BUN Creatinine Glucose POC Glucose 122 H 115 H 116 H Lactic Acid Calcium Ionized Calcium Phosphorus Magnesium Total Bilirubin AST ALT Alkaline Phosphatase Ammonia Total Creatine Kinase CK-MB (CK-2) CK-MB (CK-2) Rel Index Total Protein Albumin Urine WBC (Auto) Vancomycin Trough Salicylates Acetaminophen Plasma/Serum Alcohol Crossmatch 01/10/20 01/10/20 01/11/20 18:25 23:47 06:05 WBC RBC Hgb Hct MCH RDW Plt Count Lymph % (Auto) Moore % (Auto) Moore # Baso # Seg Neutrophils % Seg Neuts % (Manual) Lymphocytes % (Manual) Monocytes % (Manual) Seg Neutrophils # Seg Neutrophils # Man Lymphocytes # (Manual) Monocytes # (Manual) Eosinophils # (Manual) Basophils # (Manual) PT INR APTT ABG pH ABG pO2 ABG HCO3 ABG O2 Saturation ABG Base Excess ABG Hemoglobin Oxyhemoglobin Sodium Potassium Chloride Carbon Dioxide BUN Creatinine Glucose POC Glucose 123 H 115 H 151 H Lactic Acid Calcium Ionized Calcium Phosphorus Magnesium Total Bilirubin AST ALT Alkaline Phosphatase Ammonia Total Creatine Kinase CK-MB (CK-2) CK-MB (CK-2) Rel Index Total Protein Albumin Urine WBC (Auto) Vancomycin Trough Salicylates Acetaminophen Plasma/Serum Alcohol Crossmatch 01/11/20 01/11/20 01/11/20 07:00 07:00 12:27 WBC 11.8 H RBC 3.40 L Hgb 9.4 L Hct 29.3 L MCH RDW 18.1 H Plt Count 549 H Lymph % (Auto) Moore % (Auto) 9.1 H Moore # 1.1 H Baso # Seg Neutrophils % 73.3 H Seg Neuts % (Manual) Lymphocytes % (Manual) Monocytes % (Manual) Seg Neutrophils # 8.7 H Seg Neutrophils # Man Lymphocytes # (Manual) Monocytes # (Manual) Eosinophils # (Manual) Basophils # (Manual) PT INR APTT ABG pH ABG pO2 ABG HCO3 ABG O2 Saturation ABG Base Excess ABG Hemoglobin Oxyhemoglobin Sodium 134 L Potassium Chloride 97.7 L Carbon Dioxide 21 L BUN 38 H Creatinine 0.5 L Glucose 168 H POC Glucose 117 H Lactic Acid Calcium 10.5 H Ionized Calcium Phosphorus Magnesium Total Bilirubin AST ALT Alkaline Phosphatase Ammonia Total Creatine Kinase CK-MB (CK-2) CK-MB (CK-2) Rel Index Total Protein Albumin Urine WBC (Auto) Vancomycin Trough Salicylates Acetaminophen Plasma/Serum Alcohol Crossmatch 01/11/20 01/12/20 01/12/20 18:19 00:53 05:24 WBC RBC Hgb Hct MCH RDW Plt Count Lymph % (Auto) Moore % (Auto) Moore # Baso # Seg Neutrophils % Seg Neuts % (Manual) Lymphocytes % (Manual) Monocytes % (Manual) Seg Neutrophils # Seg Neutrophils # Man Lymphocytes # (Manual) Monocytes # (Manual) Eosinophils # (Manual) Basophils # (Manual) PT INR APTT ABG pH ABG pO2 ABG HCO3 ABG O2 Saturation ABG Base Excess ABG Hemoglobin Oxyhemoglobin Sodium Potassium Chloride Carbon Dioxide BUN Creatinine Glucose POC Glucose 126 H 126 H 128 H Lactic Acid Calcium Ionized Calcium Phosphorus Magnesium Total Bilirubin AST ALT Alkaline Phosphatase Ammonia Total Creatine Kinase CK-MB (CK-2) CK-MB (CK-2) Rel Index Total Protein Albumin Urine WBC (Auto) Vancomycin Trough Salicylates Acetaminophen Plasma/Serum Alcohol Crossmatch 01/12/20 01/12/2001/12/20 13:39 18:02 00:27 WBC RBC Hgb Hct MCH RDW Plt Count Lymph % (Auto) Moore % (Auto) Moore # Baso # Seg Neutrophils % Seg Neuts % (Manual) Lymphocytes % (Manual) Monocytes % (Manual) Seg Neutrophils # Seg Neutrophils # Man Lymphocytes # (Manual) Monocytes # (Manual) Eosinophils # (Manual) Basophils # (Manual) PT INR APTT ABG pH ABG pO2 ABG HCO3 ABG O2 Saturation ABG Base Excess ABG Hemoglobin Oxyhemoglobin Sodium Potassium Chloride Carbon Dioxide BUN Creatinine Glucose POC Glucose 146 H 125 H 131 H Lactic Acid Calcium Ionized Calcium Phosphorus Magnesium Total Bilirubin AST ALT Alkaline Phosphatase Ammonia Total Creatine Kinase CK-MB (CK-2) CK-MB (CK-2) Rel Index Total Protein Albumin Urine WBC (Auto) Vancomycin Trough Salicylates Acetaminophen Plasma/Serum Alcohol Crossmatch 01/13/20 01/13/20 01/13/20 05:44 11:54 17:18 WBC RBC Hgb Hct MCH RDW Plt Count Lymph % (Auto) Moore % (Auto) Moore # Baso # Seg Neutrophils % Seg Neuts % (Manual) Lymphocytes % (Manual) Monocytes % (Manual) Seg Neutrophils # Seg Neutrophils # Man Lymphocytes # (Manual) Monocytes # (Manual) Eosinophils # (Manual) Basophils # (Manual) PT INR APTT ABG pH ABG pO2 ABG HCO3 ABG O2 Saturation ABG Base Excess ABG Hemoglobin Oxyhemoglobin Sodium Potassium Chloride Carbon Dioxide BUN Creatinine Glucose POC Glucose 148 H 140 H 130 H Lactic Acid Calcium Ionized Calcium Phosphorus Magnesium Total Bilirubin AST ALT Alkaline Phosphatase Ammonia Total Creatine Kinase CK-MB (CK-2) CK-MB (CK-2) Rel Index Total Protein Albumin Urine WBC (Auto) Vancomycin Trough Salicylates Acetaminophen Plasma/Serum Alcohol Crossmatch 01/14/20 01/14/20 01/14/20 00:16 05:45 12:19 WBC RBC Hgb Hct MCH RDW Plt Count Lymph % (Auto) Moore % (Auto) Moore # Baso # Seg Neutrophils % Seg Neuts % (Manual) Lymphocytes % (Manual) Monocytes % (Manual) Seg Neutrophils # Seg Neutrophils # Man Lymphocytes # (Manual) Monocytes # (Manual) Eosinophils # (Manual) Basophils # (Manual) PT INR APTT ABG pH ABG pO2 ABG HCO3 ABG O2 Saturation ABG Base Excess ABG Hemoglobin Oxyhemoglobin Sodium Potassium Chloride Carbon Dioxide BUN Creatinine Glucose POC Glucose 125 H 146 H 147 H Lactic Acid Calcium Ionized Calcium Phosphorus Magnesium Total Bilirubin AST ALT Alkaline Phosphatase Ammonia Total Creatine Kinase CK-MB (CK-2) CK-MB (CK-2) Rel Index Total Protein Albumin Urine WBC (Auto) Vancomycin Trough Salicylates Acetaminophen Plasma/Serum Alcohol Crossmatch 01/14/20 01/14/20 01/15/20 18:10 23:54 05:14 WBC RBC Hgb Hct MCH RDW Plt Count Lymph % (Auto) Moore % (Auto) Moore # Baso # Seg Neutrophils % Seg Neuts % (Manual) Lymphocytes % (Manual) Monocytes % (Manual) Seg Neutrophils # Seg Neutrophils # Man Lymphocytes # (Manual) Monocytes # (Manual) Eosinophils # (Manual) Basophils # (Manual) PT INR APTT ABG pH ABG pO2 ABG HCO3 ABG O2 Saturation ABG Base Excess ABG Hemoglobin Oxyhemoglobin Sodium Potassium Chloride Carbon Dioxide BUN Creatinine Glucose POC Glucose 136 H 109 H 111 H Lactic Acid Calcium Ionized Calcium Phosphorus Magnesium Total Bilirubin AST ALT Alkaline Phosphatase Ammonia Total Creatine Kinase CK-MB (CK-2) CK-MB (CK-2) Rel Index Total Protein Albumin Urine WBC (Auto) Vancomycin Trough Salicylates Acetaminophen Plasma/Serum Alcohol Crossmatch 01/15/20 01/15/20 01/16/20 12:34 23:25 05:06 WBC RBC Hgb Hct MCH RDW Plt Count Lymph % (Auto) Moore % (Auto) Moore # Baso # Seg Neutrophils % Seg Neuts % (Manual) Lymphocytes % (Manual) Monocytes % (Manual) Seg Neutrophils # Seg Neutrophils # Man Lymphocytes # (Manual) Monocytes # (Manual) Eosinophils # (Manual) Basophils # (Manual) PT INR APTT ABG pH ABG pO2 ABG HCO3 ABG O2 Saturation ABG Base Excess ABG Hemoglobin Oxyhemoglobin Sodium Potassium Chloride Carbon Dioxide BUN Creatinine Glucose POC Glucose 131 H 120 H 121 H Lactic Acid Calcium Ionized Calcium Phosphorus Magnesium Total Bilirubin AST ALT Alkaline Phosphatase Ammonia Total Creatine Kinase CK-MB (CK-2) CK-MB (CK-2) Rel Index Total Protein Albumin Urine WBC (Auto) Vancomycin Trough Salicylates Acetaminophen Plasma/Serum Alcohol Crossmatch 01/16/20 01/16/20 01/17/20 12:15 23:46 05:32 WBC 13.6 H RBC 3.27 L Hgb 9.3 L Hct 28.5 L MCH RDW 17.0 H Plt Count 490 H Lymph % (Auto) 13.1 L Moore % (Auto) Moore # 1.0 H Baso # Seg Neutrophils % 77.5 H Seg Neuts % (Manual) Lymphocytes % (Manual) Monocytes % (Manual) Seg Neutrophils # 10.5 H Seg Neutrophils # Man Lymphocytes # (Manual) Monocytes # (Manual) Eosinophils # (Manual) Basophils # (Manual) PT INR APTT ABG pH ABG pO2 ABG HCO3 ABG O2 Saturation ABG Base Excess ABG Hemoglobin Oxyhemoglobin Sodium Potassium Chloride Carbon Dioxide BUN Creatinine Glucose POC Glucose 152 H 107 H Lactic Acid Calcium Ionized Calcium Phosphorus Magnesium Total Bilirubin AST ALT Alkaline Phosphatase Ammonia Total Creatine Kinase CK-MB (CK-2) CK-MB (CK-2) Rel Index Total Protein Albumin Urine WBC (Auto) Vancomycin Trough Salicylates Acetaminophen Plasma/Serum Alcohol Crossmatch 01/17/20 01/17/20 01/17/20 06:47 12:16 17:21 WBC RBC Hgb Hct MCH RDW Plt Count Lymph % (Auto) Moore % (Auto) Moore # Baso # Seg Neutrophils % Seg Neuts % (Manual) Lymphocytes % (Manual) Monocytes % (Manual) Seg Neutrophils # Seg Neutrophils # Man Lymphocytes # (Manual) Monocytes # (Manual) Eosinophils # (Manual) Basophils # (Manual) PT INR APTT ABG pH ABG pO2 ABG HCO3 ABG O2 Saturation ABG Base Excess ABG Hemoglobin Oxyhemoglobin Sodium Potassium Chloride Carbon Dioxide BUN Creatinine Glucose POC Glucose 112 H 145 H 150 H Lactic Acid Calcium Ionized Calcium Phosphorus Magnesium Total Bilirubin AST ALT Alkaline Phosphatase Ammonia Total Creatine Kinase CK-MB (CK-2) CK-MB (CK-2) Rel Index Total Protein Albumin Urine WBC (Auto) Vancomycin Trough Salicylates Acetaminophen Plasma/Serum Alcohol Crossmatch 01/17/20 01/18/20 01/18/20 23:34 05:47 12:43 WBC RBC Hgb Hct MCH RDW Plt Count Lymph % (Auto) Moore % (Auto) Moore # Baso # Seg Neutrophils % Seg Neuts % (Manual) Lymphocytes % (Manual) Monocytes % (Manual) Seg Neutrophils # Seg Neutrophils # Man Lymphocytes # (Manual) Monocytes # (Manual) Eosinophils # (Manual) Basophils # (Manual) PT INR APTT ABG pH ABG pO2 ABG HCO3 ABG O2 Saturation ABG Base Excess ABG Hemoglobin Oxyhemoglobin Sodium Potassium Chloride Carbon Dioxide BUN Creatinine Glucose POC Glucose 160 H 130 H 124 H Lactic Acid Calcium Ionized Calcium Phosphorus Magnesium Total Bilirubin AST ALT Alkaline Phosphatase Ammonia Total Creatine Kinase CK-MB (CK-2) CK-MB (CK-2) Rel Index Total Protein Albumin Urine WBC (Auto) Vancomycin Trough Salicylates Acetaminophen Plasma/Serum Alcohol Crossmatch 01/18/20 01/19/20 01/19/20 18:26 00:14 06:24 WBC RBC Hgb Hct MCH RDW Plt Count Lymph % (Auto) Moore % (Auto) Moore # Baso # Seg Neutrophils % Seg Neuts % (Manual) Lymphocytes % (Manual) Monocytes % (Manual) Seg Neutrophils # Seg Neutrophils # Man Lymphocytes # (Manual) Monocytes # (Manual) Eosinophils # (Manual) Basophils # (Manual) PT INR APTT ABG pH ABG pO2 ABG HCO3 ABG O2 Saturation ABG Base Excess ABG Hemoglobin Oxyhemoglobin Sodium Potassium Chloride Carbon Dioxide BUN Creatinine Glucose POC Glucose 119 H 114 H 144 H Lactic Acid Calcium Ionized Calcium Phosphorus Magnesium Total Bilirubin AST ALT Alkaline Phosphatase Ammonia Total Creatine Kinase CK-MB (CK-2) CK-MB (CK-2) Rel Index Total Protein Albumin Urine WBC (Auto) Vancomycin Trough Salicylates Acetaminophen Plasma/Serum Alcohol Crossmatch 01/19/20 01/19/20 01/20/20 12:24 17:50 12:06 WBC RBC Hgb Hct MCH RDW Plt Count Lymph % (Auto) Moore % (Auto) Moore # Baso # Seg Neutrophils % Seg Neuts % (Manual) Lymphocytes % (Manual) Monocytes % (Manual) Seg Neutrophils # Seg Neutrophils # Man Lymphocytes # (Manual) Monocytes # (Manual) Eosinophils # (Manual) Basophils # (Manual) PT INR APTT ABG pH ABG pO2 ABG HCO3 ABG O2 Saturation ABG Base Excess ABG Hemoglobin Oxyhemoglobin Sodium Potassium Chloride Carbon Dioxide BUN Creatinine Glucose POC Glucose 132 H 144 H 135 H Lactic Acid Calcium Ionized Calcium Phosphorus Magnesium Total Bilirubin AST ALT Alkaline Phosphatase Ammonia Total Creatine Kinase CK-MB (CK-2) CK-MB (CK-2) Rel Index Total Protein Albumin Urine WBC (Auto) Vancomycin Trough Salicylates Acetaminophen Plasma/Serum Alcohol Crossmatch 01/21/20 01/21/20 01/21/20 05:46 13:02 23:49 WBC RBC Hgb Hct MCH RDW Plt Count Lymph % (Auto) Moore % (Auto) Moore # Baso # Seg Neutrophils % Seg Neuts % (Manual) Lymphocytes % (Manual) Monocytes % (Manual) Seg Neutrophils # Seg Neutrophils # Man Lymphocytes # (Manual) Monocytes # (Manual) Eosinophils # (Manual) Basophils # (Manual) PT INR APTT ABG pH ABG pO2 ABG HCO3 ABG O2 Saturation ABG Base Excess ABG Hemoglobin Oxyhemoglobin Sodium Potassium Chloride Carbon Dioxide BUN Creatinine Glucose POC Glucose 114 H 136 H 120 H Lactic Acid Calcium Ionized Calcium Phosphorus Magnesium Total Bilirubin AST ALT Alkaline Phosphatase Ammonia Total Creatine Kinase CK-MB (CK-2) CK-MB (CK-2) Rel Index Total Protein Albumin Urine WBC (Auto) Vancomycin Trough Salicylates Acetaminophen Plasma/Serum Alcohol Crossmatch 01/22/20 01/22/20 01/22/20 05:41 11:44 16:31 WBC RBC Hgb Hct MCH RDW Plt Count Lymph % (Auto) Moore % (Auto) Moore # Baso # Seg Neutrophils % Seg Neuts % (Manual) Lymphocytes % (Manual) Monocytes % (Manual) Seg Neutrophils # Seg Neutrophils # Man Lymphocytes # (Manual) Monocytes # (Manual) Eosinophils # (Manual) Basophils # (Manual) PT INR APTT ABG pH ABG pO2 ABG HCO3 ABG O2 Saturation ABG Base Excess ABG Hemoglobin Oxyhemoglobin Sodium Potassium Chloride Carbon Dioxide BUN Creatinine Glucose POC Glucose 124 H 173 H 111 H Lactic Acid Calcium Ionized Calcium Phosphorus Magnesium Total Bilirubin AST ALT Alkaline Phosphatase Ammonia Total Creatine Kinase CK-MB (CK-2) CK-MB (CK-2) Rel Index Total Protein Albumin Urine WBC (Auto) Vancomycin Trough Salicylates Acetaminophen Plasma/Serum Alcohol Crossmatch 01/22/20 01/23/20 01/23/20 23:25 05:15 12:15 WBC RBC Hgb Hct MCH RDW Plt Count Lymph % (Auto) Moore % (Auto) Moore # Baso # Seg Neutrophils % Seg Neuts % (Manual) Lymphocytes % (Manual) Monocytes % (Manual) Seg Neutrophils # Seg Neutrophils # Man Lymphocytes # (Manual) Monocytes # (Manual) Eosinophils # (Manual) Basophils # (Manual) PT INR APTT ABG pH ABG pO2 ABG HCO3 ABG O2 Saturation ABG Base Excess ABG Hemoglobin Oxyhemoglobin Sodium Potassium Chloride Carbon Dioxide BUN Creatinine Glucose POC Glucose 134 H 117 H 129 H Lactic Acid Calcium Ionized Calcium Phosphorus Magnesium Total Bilirubin AST ALT Alkaline Phosphatase Ammonia Total Creatine Kinase CK-MB (CK-2) CK-MB (CK-2) Rel Index Total Protein Albumin Urine WBC (Auto) Vancomycin Trough Salicylates Acetaminophen Plasma/Serum Alcohol Crossmatch 01/23/20 01/23/20 01/23/20 16:58 21:17 23:47 WBC RBC Hgb Hct MCH RDW Plt Count Lymph % (Auto) Moore % (Auto) Moore # Baso # Seg Neutrophils % Seg Neuts % (Manual) Lymphocytes % (Manual) Monocytes % (Manual) Seg Neutrophils # Seg Neutrophils # Man Lymphocytes # (Manual) Monocytes # (Manual) Eosinophils # (Manual) Basophils # (Manual) PT INR APTT ABG pH ABG pO2 ABG HCO3 ABG O2 Saturation ABG Base Excess ABG Hemoglobin Oxyhemoglobin Sodium Potassium Chloride Carbon Dioxide BUN Creatinine Glucose POC Glucose 156 H 185 H 156 H Lactic Acid Calcium Ionized Calcium Phosphorus Magnesium Total Bilirubin AST ALT Alkaline Phosphatase Ammonia Total Creatine Kinase CK-MB (CK-2) CK-MB (CK-2) Rel Index Total Protein Albumin Urine WBC (Auto) Vancomycin Trough Salicylates Acetaminophen Plasma/Serum Alcohol Crossmatch 01/24/20 01/24/20 01/24/20 04:47 04:47 05:59 WBC 17.8 H RBC 3.60 L Hgb Hct MCH RDW 16.2 H Plt Count 688 H Lymph % (Auto) 11.8 L Moore % (Auto) 7.5 H Moore # 1.3 H Baso # Seg Neutrophils % 79.9 H Seg Neuts % (Manual) Lymphocytes % (Manual) Monocytes % (Manual) Seg Neutrophils # 14.2 H Seg Neutrophils # Man Lymphocytes # (Manual) Monocytes # (Manual) Eosinophils # (Manual) Basophils # (Manual) PT INR APTT ABG pH ABG pO2 ABG HCO3 ABG O2 Saturation ABG Base Excess ABG Hemoglobin Oxyhemoglobin Sodium 131 L Potassium Chloride 91.2 L Carbon Dioxide BUN 22 H Creatinine 0.3 L Glucose 123 H POC Glucose 147 H Lactic Acid Calcium 10.9 H Ionized Calcium Phosphorus Magnesium Total Bilirubin AST ALT Alkaline Phosphatase Ammonia Total Creatine Kinase CK-MB (CK-2) CK-MB (CK-2) Rel Index Total Protein Albumin Urine WBC (Auto) Vancomycin Trough Salicylates Acetaminophen Plasma/Serum Alcohol Crossmatch 01/24/20 01/24/20 01/25/20 11:47 16:45 00:18 WBC RBC Hgb Hct MCH RDW Plt Count Lymph % (Auto) Moore % (Auto) Moore # Baso # Seg Neutrophils % Seg Neuts % (Manual) Lymphocytes % (Manual) Monocytes % (Manual) Seg Neutrophils # Seg Neutrophils # Man Lymphocytes # (Manual) Monocytes # (Manual) Eosinophils # (Manual) Basophils # (Manual) PT INR APTT ABG pH ABG pO2 ABG HCO3 ABG O2 Saturation ABG Base Excess ABG Hemoglobin Oxyhemoglobin Sodium Potassium Chloride Carbon Dioxide BUN Creatinine Glucose POC Glucose 114 H 108 H 119 H Lactic Acid Calcium Ionized Calcium Phosphorus Magnesium Total Bilirubin AST ALT Alkaline Phosphatase Ammonia Total Creatine Kinase CK-MB (CK-2) CK-MB (CK-2) Rel Index Total Protein Albumin Urine WBC (Auto) Vancomycin Trough Salicylates Acetaminophen Plasma/Serum Alcohol Crossmatch 01/25/20 01/25/20 01/25/20 07:18 11:58 16:56 WBC RBC Hgb Hct MCH RDW Plt Count Lymph % (Auto) Moore % (Auto) Moore # Baso # Seg Neutrophils % Seg Neuts % (Manual) Lymphocytes % (Manual) Monocytes % (Manual) Seg Neutrophils # Seg Neutrophils # Man Lymphocytes # (Manual) Monocytes # (Manual) Eosinophils # (Manual) Basophils # (Manual) PT INR APTT ABG pH ABG pO2 ABG HCO3 ABG O2 Saturation ABG Base Excess ABG Hemoglobin Oxyhemoglobin Sodium Potassium Chloride Carbon Dioxide BUN Creatinine Glucose POC Glucose 136 H 136 H 147 H Lactic Acid Calcium Ionized Calcium Phosphorus Magnesium Total Bilirubin AST ALT Alkaline Phosphatase Ammonia Total Creatine Kinase CK-MB (CK-2) CK-MB (CK-2) Rel Index Total Protein Albumin Urine WBC (Auto) Vancomycin Trough Salicylates Acetaminophen Plasma/Serum Alcohol Crossmatch 01/26/20 01/26/20 01/26/20 00:29 05:59 05:59 WBC 12.8 H RBC Hgb Hct MCH RDW 16.4 H Plt Count 743 H Lymph % (Auto) Moore % (Auto) Moore # 0.9 H Baso # Seg Neutrophils % 76.2 H Seg Neuts % (Manual) Lymphocytes % (Manual) Monocytes % (Manual) Seg Neutrophils # 9.8 H Seg Neutrophils # Man Lymphocytes # (Manual) Monocytes # (Manual) Eosinophils # (Manual) Basophils # (Manual) PT INR APTT ABG pH ABG pO2 ABG HCO3 ABG O2 Saturation ABG Base Excess ABG Hemoglobin Oxyhemoglobin Sodium 132 L Potassium Chloride 90.9 L Carbon Dioxide BUN 23 H Creatinine 0.4 L Glucose 122 H POC Glucose 107 H Lactic Acid Calcium 11.0 H Ionized Calcium Phosphorus Magnesium Total Bilirubin AST ALT Alkaline Phosphatase Ammonia Total Creatine Kinase CK-MB (CK-2) CK-MB (CK-2) Rel Index Total Protein Albumin Urine WBC (Auto) Vancomycin Trough Salicylates Acetaminophen Plasma/Serum Alcohol Crossmatch 01/26/20 01/26/20 01/26/20 06:27 12:06 16:49 WBC RBC Hgb Hct MCH RDW Plt Count Lymph % (Auto) Moore % (Auto) Moore # Baso # Seg Neutrophils % Seg Neuts % (Manual) Lymphocytes % (Manual) Monocytes % (Manual) Seg Neutrophils # Seg Neutrophils # Man Lymphocytes # (Manual) Monocytes # (Manual) Eosinophils # (Manual) Basophils # (Manual) PT INR APTT ABG pH ABG pO2 ABG HCO3 ABG O2 Saturation ABG Base Excess ABG Hemoglobin Oxyhemoglobin Sodium Potassium Chloride Carbon Dioxide BUN Creatinine Glucose POC Glucose 132 H 132 H 110 H Lactic Acid Calcium Ionized Calcium Phosphorus Magnesium Total Bilirubin AST ALT Alkaline Phosphatase Ammonia Total Creatine Kinase CK-MB (CK-2) CK-MB (CK-2) Rel Index Total Protein Albumin Urine WBC (Auto) Vancomycin Trough Salicylates Acetaminophen Plasma/Serum Alcohol Crossmatch 01/27/20 01/27/20 01/27/20 00:08 11:49 16:24 WBC RBC Hgb Hct MCH RDW Plt Count Lymph % (Auto) Moore % (Auto) Moore # Baso # Seg Neutrophils % Seg Neuts % (Manual) Lymphocytes % (Manual) Monocytes % (Manual) Seg Neutrophils # Seg Neutrophils # Man Lymphocytes # (Manual) Monocytes # (Manual) Eosinophils # (Manual) Basophils # (Manual) PT INR APTT ABG pH ABG pO2 ABG HCO3 ABG O2 Saturation ABG Base Excess ABG Hemoglobin Oxyhemoglobin Sodium Potassium Chloride Carbon Dioxide BUN Creatinine Glucose POC Glucose 107 H 119 H 129 H Lactic Acid Calcium Ionized Calcium Phosphorus Magnesium Total Bilirubin AST ALT Alkaline Phosphatase Ammonia Total Creatine Kinase CK-MB (CK-2) CK-MB (CK-2) Rel Index Total Protein Albumin Urine WBC (Auto) Vancomycin Trough Salicylates Acetaminophen Plasma/Serum Alcohol Crossmatch 01/27/20 01/28/20 01/28/20 18:28 01:00 06:22 WBC RBC Hgb Hct MCH RDW Plt Count Lymph % (Auto) Moore % (Auto) Moore # Baso # Seg Neutrophils % Seg Neuts % (Manual) Lymphocytes % (Manual) Monocytes % (Manual) Seg Neutrophils # Seg Neutrophils # Man Lymphocytes # (Manual) Monocytes # (Manual) Eosinophils # (Manual) Basophils # (Manual) PT INR APTT ABG pH ABG pO2 ABG HCO3 ABG O2 Saturation ABG Base Excess ABG Hemoglobin Oxyhemoglobin Sodium Potassium Chloride Carbon Dioxide BUN Creatinine Glucose POC Glucose 126 H 121 H 114 H Lactic Acid Calcium Ionized Calcium Phosphorus Magnesium Total Bilirubin AST ALT Alkaline Phosphatase Ammonia Total Creatine Kinase CK-MB (CK-2) CK-MB (CK-2) Rel Index Total Protein Albumin Urine WBC (Auto) Vancomycin Trough Salicylates Acetaminophen Plasma/Serum Alcohol Crossmatch 01/28/20 01/28/20 01/29/20 11:47 18:00 00:05 WBC RBC Hgb Hct MCH RDW Plt Count Lymph % (Auto) Moore % (Auto) Moore # Baso # Seg Neutrophils % Seg Neuts % (Manual) Lymphocytes % (Manual) Monocytes % (Manual) Seg Neutrophils # Seg Neutrophils # Man Lymphocytes # (Manual) Monocytes # (Manual) Eosinophils # (Manual) Basophils # (Manual) PT INR APTT ABG pH ABG pO2 ABG HCO3 ABG O2 Saturation ABG Base Excess ABG Hemoglobin Oxyhemoglobin Sodium Potassium Chloride Carbon Dioxide BUN Creatinine Glucose POC Glucose 106 H 117 H 127 H Lactic Acid Calcium Ionized Calcium Phosphorus Magnesium Total Bilirubin AST ALT Alkaline Phosphatase Ammonia Total Creatine Kinase CK-MB (CK-2) CK-MB (CK-2) Rel Index Total Protein Albumin Urine WBC (Auto) Vancomycin Trough Salicylates Acetaminophen Plasma/Serum Alcohol Crossmatch 01/29/20 01/29/20 01/29/20 06:04 11:40 16:38 WBC RBC Hgb Hct MCH RDW Plt Count Lymph % (Auto) Moore % (Auto) Moore # Baso # Seg Neutrophils % Seg Neuts % (Manual) Lymphocytes % (Manual) Monocytes % (Manual) Seg Neutrophils # Seg Neutrophils # Man Lymphocytes # (Manual) Monocytes # (Manual) Eosinophils # (Manual) Basophils # (Manual) PT INR APTT ABG pH ABG pO2 ABG HCO3 ABG O2 Saturation ABG Base Excess ABG Hemoglobin Oxyhemoglobin Sodium Potassium Chloride Carbon Dioxide BUN Creatinine Glucose POC Glucose 147 H 139 H 143 H Lactic Acid Calcium Ionized Calcium Phosphorus Magnesium Total Bilirubin AST ALT Alkaline Phosphatase Ammonia Total Creatine Kinase CK-MB (CK-2) CK-MB (CK-2) Rel Index Total Protein Albumin Urine WBC (Auto) Vancomycin Trough Salicylates Acetaminophen Plasma/Serum Alcohol Crossmatch 01/29/20 01/30/20 01/30/20 23:46 06:43 12:07 WBC RBC Hgb Hct MCH RDW Plt Count Lymph % (Auto) Moore % (Auto) Moore # Baso # Seg Neutrophils % Seg Neuts % (Manual) Lymphocytes % (Manual) Monocytes % (Manual) Seg Neutrophils # Seg Neutrophils # Man Lymphocytes # (Manual) Monocytes # (Manual) Eosinophils # (Manual) Basophils # (Manual) PT INR APTT ABG pH ABG pO2 ABG HCO3 ABG O2 Saturation ABG Base Excess ABG Hemoglobin Oxyhemoglobin Sodium Potassium Chloride Carbon Dioxide BUN Creatinine Glucose POC Glucose 122 H 122 H 134 H Lactic Acid Calcium Ionized Calcium Phosphorus Magnesium Total Bilirubin AST ALT Alkaline Phosphatase Ammonia Total Creatine Kinase CK-MB (CK-2) CK-MB (CK-2) Rel Index Total Protein Albumin Urine WBC (Auto) Vancomycin Trough Salicylates Acetaminophen Plasma/Serum Alcohol Crossmatch 01/30/20 01/31/20 01/31/20 17:59 00:52 05:54 WBC RBC Hgb Hct MCH RDW Plt Count Lymph % (Auto) Moore % (Auto) Moore # Baso # Seg Neutrophils % Seg Neuts % (Manual) Lymphocytes % (Manual) Monocytes % (Manual) Seg Neutrophils # Seg Neutrophils # Man Lymphocytes # (Manual) Monocytes # (Manual) Eosinophils # (Manual) Basophils # (Manual) PT INR APTT ABG pH ABG pO2 ABG HCO3 ABG O2 Saturation ABG Base Excess ABG Hemoglobin Oxyhemoglobin Sodium Potassium Chloride Carbon Dioxide BUN Creatinine Glucose POC Glucose 116 H 127 H 127 H Lactic Acid Calcium Ionized Calcium Phosphorus Magnesium Total Bilirubin AST ALT Alkaline Phosphatase Ammonia Total Creatine Kinase CK-MB (CK-2) CK-MB (CK-2) Rel Index Total Protein Albumin Urine WBC (Auto) Vancomycin Trough Salicylates Acetaminophen Plasma/Serum Alcohol Crossmatch 01/31/20 02/01/20 02/01/20 12:20 00:48 12:21 WBC RBC Hgb Hct MCH RDW Plt Count Lymph % (Auto) Moore % (Auto) Moore # Baso # Seg Neutrophils % Seg Neuts % (Manual) Lymphocytes % (Manual) Monocytes % (Manual) Seg Neutrophils # Seg Neutrophils # Man Lymphocytes # (Manual) Monocytes # (Manual) Eosinophils # (Manual) Basophils # (Manual) PT INR APTT ABG pH ABG pO2 ABG HCO3 ABG O2 Saturation ABG Base Excess ABG Hemoglobin Oxyhemoglobin Sodium Potassium Chloride Carbon Dioxide BUN Creatinine Glucose POC Glucose 126 H 154 H 123 H Lactic Acid Calcium Ionized Calcium Phosphorus Magnesium Total Bilirubin AST ALT Alkaline Phosphatase Ammonia Total Creatine Kinase CK-MB (CK-2) CK-MB (CK-2) Rel Index Total Protein Albumin Urine WBC (Auto) Vancomycin Trough Salicylates Acetaminophen Plasma/Serum Alcohol Crossmatch 02/01/20 02/02/20 02/02/20 23:58 06:08 11:50 WBC RBC Hgb Hct MCH RDW Plt Count Lymph % (Auto) Moore % (Auto) Moore # Baso # Seg Neutrophils % Seg Neuts % (Manual) Lymphocytes % (Manual) Monocytes % (Manual) Seg Neutrophils # Seg Neutrophils # Man Lymphocytes # (Manual) Monocytes # (Manual) Eosinophils # (Manual) Basophils # (Manual) PT INR APTT ABG pH ABG pO2 ABG HCO3 ABG O2 Saturation ABG Base Excess ABG Hemoglobin Oxyhemoglobin Sodium Potassium Chloride Carbon Dioxide BUN Creatinine Glucose POC Glucose 125 H 144 H 131 H Lactic Acid Calcium Ionized Calcium Phosphorus Magnesium Total Bilirubin AST ALT Alkaline Phosphatase Ammonia Total Creatine Kinase CK-MB (CK-2) CK-MB (CK-2) Rel Index Total Protein Albumin Urine WBC (Auto) Vancomycin Trough Salicylates Acetaminophen Plasma/Serum Alcohol Crossmatch 02/02/20 02/03/20 02/03/20 17:53 00:14 05:47 WBC RBC Hgb Hct MCH RDW Plt Count Lymph % (Auto) Moore % (Auto) Moore # Baso # Seg Neutrophils % Seg Neuts % (Manual) Lymphocytes % (Manual) Monocytes % (Manual) Seg Neutrophils # Seg Neutrophils # Man Lymphocytes # (Manual) Monocytes # (Manual) Eosinophils # (Manual) Basophils # (Manual) PT INR APTT ABG pH ABG pO2 ABG HCO3 ABG O2 Saturation ABG Base Excess ABG Hemoglobin Oxyhemoglobin Sodium Potassium Chloride Carbon Dioxide BUN Creatinine Glucose POC Glucose 108 H 122 H 118 H Lactic Acid Calcium Ionized Calcium Phosphorus Magnesium Total Bilirubin AST ALT Alkaline Phosphatase Ammonia Total Creatine Kinase CK-MB (CK-2) CK-MB (CK-2) Rel Index Total Protein Albumin Urine WBC (Auto) Vancomycin Trough Salicylates Acetaminophen Plasma/Serum Alcohol Crossmatch 02/03/20 02/03/20 02/03/20 05:59 05:59 11:49 WBC RBC 3.48 L Hgb Hct 29.9 L MCH RDW 16.2 H Plt Count 707 H Lymph % (Auto) Moore % (Auto) 9.3 H Moore # 0.9 H Baso # Seg Neutrophils % Seg Neuts % (Manual) Lymphocytes % (Manual) Monocytes % (Manual) Seg Neutrophils # Seg Neutrophils # Man Lymphocytes # (Manual) Monocytes # (Manual) Eosinophils # (Manual) Basophils # (Manual) PT INR APTT ABG pH ABG pO2 ABG HCO3 ABG O2 Saturation ABG Base Excess ABG Hemoglobin Oxyhemoglobin Sodium 136 L Potassium Chloride 93.4 L Carbon Dioxide BUN 20 H Creatinine 0.5 L Glucose 101 H POC Glucose 133 H Lactic Acid Calcium 10.8 H Ionized Calcium Phosphorus Magnesium Total Bilirubin AST ALT Alkaline Phosphatase Ammonia Total Creatine Kinase CK-MB (CK-2) CK-MB (CK-2) Rel Index Total Protein Albumin Urine WBC (Auto) Vancomycin Trough Salicylates Acetaminophen Plasma/Serum Alcohol Crossmatch 02/03/20 02/04/20 02/04/20 23:19 05:37 23:56 WBC RBC Hgb Hct MCH RDW Plt Count Lymph % (Auto) Moore % (Auto) Moore # Baso # Seg Neutrophils % Seg Neuts % (Manual) Lymphocytes % (Manual) Monocytes % (Manual) Seg Neutrophils # Seg Neutrophils # Man Lymphocytes # (Manual) Monocytes # (Manual) Eosinophils # (Manual) Basophils # (Manual) PT INR APTT ABG pH ABG pO2 ABG HCO3 ABG O2 Saturation ABG Base Excess ABG Hemoglobin Oxyhemoglobin Sodium Potassium Chloride Carbon Dioxide BUN Creatinine Glucose POC Glucose 135 H 108 H 158 H Lactic Acid Calcium Ionized Calcium Phosphorus Magnesium Total Bilirubin AST ALT Alkaline Phosphatase Ammonia Total Creatine Kinase CK-MB (CK-2) CK-MB (CK-2) Rel Index Total Protein Albumin Urine WBC (Auto) Vancomycin Trough Salicylates Acetaminophen Plasma/Serum Alcohol Crossmatch 02/05/20 02/05/20 02/06/20 05:33 23:24 05:50 WBC RBC Hgb Hct MCH RDW Plt Count Lymph % (Auto) Moore % (Auto) Moore # Baso # Seg Neutrophils % Seg Neuts % (Manual) Lymphocytes % (Manual) Monocytes % (Manual) Seg Neutrophils # Seg Neutrophils # Man Lymphocytes # (Manual) Monocytes # (Manual) Eosinophils # (Manual) Basophils # (Manual) PT INR APTT ABG pH ABG pO2 ABG HCO3 ABG O2 Saturation ABG Base Excess ABG Hemoglobin Oxyhemoglobin Sodium Potassium Chloride Carbon Dioxide BUN Creatinine Glucose POC Glucose 152 H 158 H 110 H Lactic Acid Calcium Ionized Calcium Phosphorus Magnesium Total Bilirubin AST ALT Alkaline Phosphatase Ammonia Total Creatine Kinase CK-MB (CK-2) CK-MB (CK-2) Rel Index Total Protein Albumin Urine WBC (Auto) Vancomycin Trough Salicylates Acetaminophen Plasma/Serum Alcohol Crossmatch 02/06/20 02/07/20 02/07/20 16:03 00:13 05:27 WBC RBC Hgb Hct MCH RDW Plt Count Lymph % (Auto) Moore % (Auto) Moore # Baso # Seg Neutrophils % Seg Neuts % (Manual) Lymphocytes % (Manual) Monocytes % (Manual) Seg Neutrophils # Seg Neutrophils # Man Lymphocytes # (Manual) Monocytes # (Manual) Eosinophils # (Manual) Basophils # (Manual) PT INR APTT ABG pH ABG pO2 ABG HCO3 ABG O2 Saturation ABG Base Excess ABG Hemoglobin Oxyhemoglobin Sodium Potassium Chloride Carbon Dioxide BUN Creatinine Glucose POC Glucose 130 H 115 H 115 H Lactic Acid Calcium Ionized Calcium Phosphorus Magnesium Total Bilirubin AST ALT Alkaline Phosphatase Ammonia Total Creatine Kinase CK-MB (CK-2) CK-MB (CK-2) Rel Index Total Protein Albumin Urine WBC (Auto) Vancomycin Trough Salicylates Acetaminophen Plasma/Serum Alcohol Crossmatch 02/07/20 02/07/20 02/08/20 11:42 17:23 00:37 WBC RBC Hgb Hct MCH RDW Plt Count Lymph % (Auto) Moore % (Auto) Moore # Baso # Seg Neutrophils % Seg Neuts % (Manual) Lymphocytes % (Manual) Monocytes % (Manual) Seg Neutrophils # Seg Neutrophils # Man Lymphocytes # (Manual) Monocytes # (Manual) Eosinophils # (Manual) Basophils # (Manual) PT INR APTT ABG pH ABG pO2 ABG HCO3 ABG O2 Saturation ABG Base Excess ABG Hemoglobin Oxyhemoglobin Sodium Potassium Chloride Carbon Dioxide BUN Creatinine Glucose POC Glucose 113 H 114 H 136 H Lactic Acid Calcium Ionized Calcium Phosphorus Magnesium Total Bilirubin AST ALT Alkaline Phosphatase Ammonia Total Creatine Kinase CK-MB (CK-2) CK-MB (CK-2) Rel Index Total Protein Albumin Urine WBC (Auto) Vancomycin Trough Salicylates Acetaminophen Plasma/Serum Alcohol Crossmatch 02/08/20 02/08/20 02/08/20 08:52 11:42 17:02 WBC RBC Hgb Hct MCH RDW Plt Count Lymph % (Auto) Moore % (Auto) Moore # Baso # Seg Neutrophils % Seg Neuts % (Manual) Lymphocytes % (Manual) Monocytes % (Manual) Seg Neutrophils # Seg Neutrophils # Man Lymphocytes # (Manual) Monocytes # (Manual) Eosinophils # (Manual) Basophils # (Manual) PT INR APTT ABG pH ABG pO2 ABG HCO3 ABG O2 Saturation ABG Base Excess ABG Hemoglobin Oxyhemoglobin Sodium 136 L Potassium Chloride 95.7 L Carbon Dioxide BUN 21 H Creatinine 0.4 L Glucose POC Glucose 128 H 145 H Lactic Acid Calcium 10.4 H Ionized Calcium Phosphorus Magnesium Total Bilirubin AST ALT Alkaline Phosphatase Ammonia Total Creatine Kinase CK-MB (CK-2) CK-MB (CK-2) Rel Index Total Protein Albumin Urine WBC (Auto) Vancomycin Trough Salicylates Acetaminophen Plasma/Serum Alcohol Crossmatch 02/09/20 02/09/20 02/09/20 01:05 11:52 16:19 WBC RBC Hgb Hct MCH RDW Plt Count Lymph % (Auto) Moore % (Auto) Moore # Baso # Seg Neutrophils % Seg Neuts % (Manual) Lymphocytes % (Manual) Monocytes % (Manual) Seg Neutrophils # Seg Neutrophils # Man Lymphocytes # (Manual) Monocytes # (Manual) Eosinophils # (Manual) Basophils # (Manual) PT INR APTT ABG pH ABG pO2 ABG HCO3 ABG O2 Saturation ABG Base Excess ABG Hemoglobin Oxyhemoglobin Sodium Potassium Chloride Carbon Dioxide BUN Creatinine Glucose POC Glucose 117 H 141 H 113 H Lactic Acid Calcium Ionized Calcium Phosphorus Magnesium Total Bilirubin AST ALT Alkaline Phosphatase Ammonia Total Creatine Kinase CK-MB (CK-2) CK-MB (CK-2) Rel Index Total Protein Albumin Urine WBC (Auto) Vancomycin Trough Salicylates Acetaminophen Plasma/Serum Alcohol Crossmatch 02/10/20 02/10/20 02/10/20 05:25 12:50 17:08 WBC RBC Hgb Hct MCH RDW Plt Count Lymph % (Auto) Moore % (Auto) Moore # Baso # Seg Neutrophils % Seg Neuts % (Manual) Lymphocytes % (Manual) Monocytes % (Manual) Seg Neutrophils # Seg Neutrophils # Man Lymphocytes # (Manual) Monocytes # (Manual) Eosinophils # (Manual) Basophils # (Manual) PT INR APTT ABG pH ABG pO2 ABG HCO3 ABG O2 Saturation ABG Base Excess ABG Hemoglobin Oxyhemoglobin Sodium Potassium Chloride Carbon Dioxide BUN Creatinine Glucose POC Glucose 136 H 127 H 111 H Lactic Acid Calcium Ionized Calcium Phosphorus Magnesium Total Bilirubin AST ALT Alkaline Phosphatase Ammonia Total Creatine Kinase CK-MB (CK-2) CK-MB (CK-2) Rel Index Total Protein Albumin Urine WBC (Auto) Vancomycin Trough Salicylates Acetaminophen Plasma/Serum Alcohol Crossmatch 02/10/20 02/11/20 02/11/20 23:55 06:11 12:07 WBC RBC Hgb Hct MCH RDW Plt Count Lymph % (Auto) Moore % (Auto) Moore # Baso # Seg Neutrophils % Seg Neuts % (Manual) Lymphocytes % (Manual) Monocytes % (Manual) Seg Neutrophils # Seg Neutrophils # Man Lymphocytes # (Manual) Monocytes # (Manual) Eosinophils # (Manual) Basophils # (Manual) PT INR APTT ABG pH ABG pO2 ABG HCO3 ABG O2 Saturation ABG Base Excess ABG Hemoglobin Oxyhemoglobin Sodium Potassium Chloride Carbon Dioxide BUN Creatinine Glucose POC Glucose 129 H 128 H 141 H Lactic Acid Calcium Ionized Calcium Phosphorus Magnesium Total Bilirubin AST ALT Alkaline Phosphatase Ammonia Total Creatine Kinase CK-MB (CK-2) CK-MB (CK-2) Rel Index Total Protein Albumin Urine WBC (Auto) Vancomycin Trough Salicylates Acetaminophen Plasma/Serum Alcohol Crossmatch 02/11/20 02/12/20 02/13/20 18:22 02:39 06:45 WBC RBC Hgb Hct MCH RDW Plt Count Lymph % (Auto) Moore % (Auto) Moore # Baso # Seg Neutrophils % Seg Neuts % (Manual) Lymphocytes % (Manual) Monocytes % (Manual) Seg Neutrophils # Seg Neutrophils # Man Lymphocytes # (Manual) Monocytes # (Manual) Eosinophils # (Manual) Basophils # (Manual) PT INR APTT ABG pH ABG pO2 ABG HCO3 ABG O2 Saturation ABG Base Excess ABG Hemoglobin Oxyhemoglobin Sodium Potassium Chloride Carbon Dioxide BUN Creatinine Glucose POC Glucose 118 H 107 H 124 H Lactic Acid Calcium Ionized Calcium Phosphorus Magnesium Total Bilirubin AST ALT Alkaline Phosphatase Ammonia Total Creatine Kinase CK-MB (CK-2) CK-MB (CK-2) Rel Index Total Protein Albumin Urine WBC (Auto) Vancomycin Trough Salicylates Acetaminophen Plasma/Serum Alcohol Crossmatch 02/13/20 02/13/20 02/14/20 12:26 18:19 00:21 WBC RBC Hgb Hct MCH RDW Plt Count Lymph % (Auto) Moore % (Auto) Moore # Baso # Seg Neutrophils % Seg Neuts % (Manual) Lymphocytes % (Manual) Monocytes % (Manual) Seg Neutrophils # Seg Neutrophils # Man Lymphocytes # (Manual) Monocytes # (Manual) Eosinophils # (Manual) Basophils # (Manual) PT INR APTT ABG pH ABG pO2 ABG HCO3 ABG O2 Saturation ABG Base Excess ABG Hemoglobin Oxyhemoglobin Sodium Potassium Chloride Carbon Dioxide BUN Creatinine Glucose POC Glucose 124 H 118 H 130 H Lactic Acid Calcium Ionized Calcium Phosphorus Magnesium Total Bilirubin AST ALT Alkaline Phosphatase Ammonia Total Creatine Kinase CK-MB (CK-2) CK-MB (CK-2) Rel Index Total Protein Albumin Urine WBC (Auto) Vancomycin Trough Salicylates Acetaminophen Plasma/Serum Alcohol Crossmatch 02/14/20 02/14/20 02/16/20 11:19 16:16 00:58 WBC RBC Hgb Hct MCH RDW Plt Count Lymph % (Auto) Moore % (Auto) Moore # Baso # Seg Neutrophils % Seg Neuts % (Manual) Lymphocytes % (Manual) Monocytes % (Manual) Seg Neutrophils # Seg Neutrophils # Man Lymphocytes # (Manual) Monocytes # (Manual) Eosinophils # (Manual) Basophils # (Manual) PT INR APTT ABG pH ABG pO2 ABG HCO3 ABG O2 Saturation ABG Base Excess ABG Hemoglobin Oxyhemoglobin Sodium Potassium Chloride Carbon Dioxide BUN Creatinine Glucose POC Glucose 135 H 119 H 121 H Lactic Acid Calcium Ionized Calcium Phosphorus Magnesium Total Bilirubin AST ALT Alkaline Phosphatase Ammonia Total Creatine Kinase CK-MB (CK-2) CK-MB (CK-2) Rel Index Total Protein Albumin Urine WBC (Auto) Vancomycin Trough Salicylates Acetaminophen Plasma/Serum Alcohol Crossmatch 02/16/20 02/16/20 02/16/20 12:12 18:22 23:51 WBC RBC Hgb Hct MCH RDW Plt Count Lymph % (Auto) Moore % (Auto) Moore # Baso # Seg Neutrophils % Seg Neuts % (Manual) Lymphocytes % (Manual) Monocytes % (Manual) Seg Neutrophils # Seg Neutrophils # Man Lymphocytes # (Manual) Monocytes # (Manual) Eosinophils # (Manual) Basophils # (Manual) PT INR APTT ABG pH ABG pO2 ABG HCO3 ABG O2 Saturation ABG Base Excess ABG Hemoglobin Oxyhemoglobin Sodium Potassium Chloride Carbon Dioxide BUN Creatinine Glucose POC Glucose 107 H 106 H 128 H Lactic Acid Calcium Ionized Calcium Phosphorus Magnesium Total Bilirubin AST ALT Alkaline Phosphatase Ammonia Total Creatine Kinase CK-MB (CK-2) CK-MB (CK-2) Rel Index Total Protein Albumin Urine WBC (Auto) Vancomycin Trough Salicylates Acetaminophen Plasma/Serum Alcohol Crossmatch 02/17/20 02/17/20 02/17/20 05:50 07:57 07:57 WBC 12.6 H RBC 3.52 L Hgb Hct MCH RDW 15.3 H Plt Count 643 H Lymph % (Auto) Moore % (Auto) 8.0 H Moore # 1.0 H Baso # Seg Neutrophils % Seg Neuts % (Manual) Lymphocytes % (Manual) Monocytes % (Manual) Seg Neutrophils # 8.5 H Seg Neutrophils # Man Lymphocytes # (Manual) Monocytes # (Manual) Eosinophils # (Manual) Basophils # (Manual) PT INR APTT ABG pH ABG pO2 ABG HCO3 ABG O2 Saturation ABG Base Excess ABG Hemoglobin Oxyhemoglobin Sodium Potassium Chloride 96.9 L Carbon Dioxide BUN 21 H Creatinine 0.4 L Glucose 113 H POC Glucose 116 H Lactic Acid Calcium 10.5 H Ionized Calcium Phosphorus Magnesium Total Bilirubin AST ALT Alkaline Phosphatase Ammonia Total Creatine Kinase CK-MB (CK-2) CK-MB (CK-2) Rel Index Total Protein Albumin Urine WBC (Auto) Vancomycin Trough Salicylates Acetaminophen Plasma/Serum Alcohol Crossmatch 02/17/20 02/17/20 02/18/20 12:05 18:16 00:13 WBC RBC Hgb Hct MCH RDW Plt Count Lymph % (Auto) Moore % (Auto) Moore # Baso # Seg Neutrophils % Seg Neuts % (Manual) Lymphocytes % (Manual) Monocytes % (Manual) Seg Neutrophils # Seg Neutrophils # Man Lymphocytes # (Manual) Monocytes # (Manual) Eosinophils # (Manual) Basophils # (Manual) PT INR APTT ABG pH ABG pO2 ABG HCO3 ABG O2 Saturation ABG Base Excess ABG Hemoglobin Oxyhemoglobin Sodium Potassium Chloride Carbon Dioxide BUN Creatinine Glucose POC Glucose 139 H 127 H 144 H Lactic Acid Calcium Ionized Calcium Phosphorus Magnesium Total Bilirubin AST ALT Alkaline Phosphatase Ammonia Total Creatine Kinase CK-MB (CK-2) CK-MB (CK-2) Rel Index Total Protein Albumin Urine WBC (Auto) Vancomycin Trough Salicylates Acetaminophen Plasma/Serum Alcohol Crossmatch 02/18/20 02/18/20 02/19/20 17:41 23:28 05:17 WBC RBC Hgb Hct MCH RDW Plt Count Lymph % (Auto) Moore % (Auto) Moore # Baso # Seg Neutrophils % Seg Neuts % (Manual) Lymphocytes % (Manual) Monocytes % (Manual) Seg Neutrophils # Seg Neutrophils # Man Lymphocytes # (Manual) Monocytes # (Manual) Eosinophils # (Manual) Basophils # (Manual) PT INR APTT ABG pH ABG pO2 ABG HCO3 ABG O2 Saturation ABG Base Excess ABG Hemoglobin Oxyhemoglobin Sodium Potassium Chloride Carbon Dioxide BUN Creatinine Glucose POC Glucose 118 H 166 H 116 H Lactic Acid Calcium Ionized Calcium Phosphorus Magnesium Total Bilirubin AST ALT Alkaline Phosphatase Ammonia Total Creatine Kinase CK-MB (CK-2) CK-MB (CK-2) Rel Index Total Protein Albumin Urine WBC (Auto) Vancomycin Trough Salicylates Acetaminophen Plasma/Serum Alcohol Crossmatch 02/19/20 02/19/20 02/20/20 12:33 17:02 00:12 WBC RBC Hgb Hct MCH RDW Plt Count Lymph % (Auto) Moore % (Auto) Moore # Baso # Seg Neutrophils % Seg Neuts % (Manual) Lymphocytes % (Manual) Monocytes % (Manual) Seg Neutrophils # Seg Neutrophils # Man Lymphocytes # (Manual) Monocytes # (Manual) Eosinophils # (Manual) Basophils # (Manual) PT INR APTT ABG pH ABG pO2 ABG HCO3 ABG O2 Saturation ABG Base Excess ABG Hemoglobin Oxyhemoglobin Sodium Potassium Chloride Carbon Dioxide BUN Creatinine Glucose POC Glucose 115 H 108 H 153 H Lactic Acid Calcium Ionized Calcium Phosphorus Magnesium Total Bilirubin AST ALT Alkaline Phosphatase Ammonia Total Creatine Kinase CK-MB (CK-2) CK-MB (CK-2) Rel Index Total Protein Albumin Urine WBC (Auto) Vancomycin Trough Salicylates Acetaminophen Plasma/Serum Alcohol Crossmatch 02/20/20 02/20/20 02/21/20 12:00 23:13 05:07 WBC RBC Hgb Hct MCH RDW Plt Count Lymph % (Auto) Moore % (Auto) Moore # Baso # Seg Neutrophils % Seg Neuts % (Manual) Lymphocytes % (Manual) Monocytes % (Manual) Seg Neutrophils # Seg Neutrophils # Man Lymphocytes # (Manual) Monocytes # (Manual) Eosinophils # (Manual) Basophils # (Manual) PT INR APTT ABG pH ABG pO2 ABG HCO3 ABG O2 Saturation ABG Base Excess ABG Hemoglobin Oxyhemoglobin Sodium Potassium Chloride Carbon Dioxide BUN Creatinine Glucose POC Glucose 171 H 129 H 116 H Lactic Acid Calcium Ionized Calcium Phosphorus Magnesium Total Bilirubin AST ALT Alkaline Phosphatase Ammonia Total Creatine Kinase CK-MB (CK-2) CK-MB (CK-2) Rel Index Total Protein Albumin Urine WBC (Auto) Vancomycin Trough Salicylates Acetaminophen Plasma/Serum Alcohol Crossmatch 02/21/20 02/22/20 02/22/20 12:15 00:42 06:30 WBC RBC Hgb Hct MCH RDW Plt Count Lymph % (Auto) Moore % (Auto) Moore # Baso # Seg Neutrophils % Seg Neuts % (Manual) Lymphocytes % (Manual) Monocytes % (Manual) Seg Neutrophils # Seg Neutrophils # Man Lymphocytes # (Manual) Monocytes # (Manual) Eosinophils # (Manual) Basophils # (Manual) PT INR APTT ABG pH ABG pO2 ABG HCO3 ABG O2 Saturation ABG Base Excess ABG Hemoglobin Oxyhemoglobin Sodium Potassium Chloride Carbon Dioxide BUN Creatinine Glucose POC Glucose 124 H 142 H 117 H Lactic Acid Calcium Ionized Calcium Phosphorus Magnesium Total Bilirubin AST ALT Alkaline Phosphatase Ammonia Total Creatine Kinase CK-MB (CK-2) CK-MB (CK-2) Rel Index Total Protein Albumin Urine WBC (Auto) Vancomycin Trough Salicylates Acetaminophen Plasma/Serum Alcohol Crossmatch 02/22/20 02/22/20 02/23/20 12:20 17:55 12:46 WBC RBC Hgb Hct MCH RDW Plt Count Lymph % (Auto) Moore % (Auto) Moore # Baso # Seg Neutrophils % Seg Neuts % (Manual) Lymphocytes % (Manual) Monocytes % (Manual) Seg Neutrophils # Seg Neutrophils # Man Lymphocytes # (Manual) Monocytes # (Manual) Eosinophils # (Manual) Basophils # (Manual) PT INR APTT ABG pH ABG pO2 ABG HCO3 ABG O2 Saturation ABG Base Excess ABG Hemoglobin Oxyhemoglobin Sodium Potassium Chloride Carbon Dioxide BUN Creatinine Glucose POC Glucose 121 H 157 H 112 H Lactic Acid Calcium Ionized Calcium Phosphorus Magnesium Total Bilirubin AST ALT Alkaline Phosphatase Ammonia Total Creatine Kinase CK-MB (CK-2) CK-MB (CK-2) Rel Index Total Protein Albumin Urine WBC (Auto) Vancomycin Trough Salicylates Acetaminophen Plasma/Serum Alcohol Crossmatch 02/23/20 02/24/20 02/24/20 16:47 00:38 07:00 WBC RBC Hgb Hct MCH RDW Plt Count Lymph % (Auto) Moore % (Auto) Moore # Baso # Seg Neutrophils % Seg Neuts % (Manual) Lymphocytes % (Manual) Monocytes % (Manual) Seg Neutrophils # Seg Neutrophils # Man Lymphocytes # (Manual) Monocytes # (Manual) Eosinophils # (Manual) Basophils # (Manual) PT INR APTT ABG pH ABG pO2 ABG HCO3 ABG O2 Saturation ABG Base Excess ABG Hemoglobin Oxyhemoglobin Sodium Potassium Chloride Carbon Dioxide BUN Creatinine Glucose POC Glucose 142 H 138 H 118 H Lactic Acid Calcium Ionized Calcium Phosphorus Magnesium Total Bilirubin AST ALT Alkaline Phosphatase Ammonia Total Creatine Kinase CK-MB (CK-2) CK-MB (CK-2) Rel Index Total Protein Albumin Urine WBC (Auto) Vancomycin Trough Salicylates Acetaminophen Plasma/Serum Alcohol Crossmatch 02/24/20 02/24/20 02/25/20 11:41 18:33 18:24 WBC RBC Hgb Hct MCH RDW Plt Count Lymph % (Auto) Moore % (Auto) Moore # Baso # Seg Neutrophils % Seg Neuts % (Manual) Lymphocytes % (Manual) Monocytes % (Manual) Seg Neutrophils # Seg Neutrophils # Man Lymphocytes # (Manual) Monocytes # (Manual) Eosinophils # (Manual) Basophils # (Manual) PT INR APTT ABG pH ABG pO2 ABG HCO3 ABG O2 Saturation ABG Base Excess ABG Hemoglobin Oxyhemoglobin Sodium Potassium Chloride Carbon Dioxide BUN Creatinine Glucose POC Glucose 152 H 126 H 120 H Lactic Acid Calcium Ionized Calcium Phosphorus Magnesium Total Bilirubin AST ALT Alkaline Phosphatase Ammonia Total Creatine Kinase CK-MB (CK-2) CK-MB (CK-2) Rel Index Total Protein Albumin Urine WBC (Auto) Vancomycin Trough Salicylates Acetaminophen Plasma/Serum Alcohol Crossmatch 02/25/20 02/26/20 23:40 05:46 WBC RBC Hgb Hct MCH RDW Plt Count Lymph % (Auto) Moore % (Auto) Moore # Baso # Seg Neutrophils % Seg Neuts % (Manual) Lymphocytes % (Manual) Monocytes % (Manual) Seg Neutrophils # Seg Neutrophils # Man Lymphocytes # (Manual) Monocytes # (Manual) Eosinophils # (Manual) Basophils # (Manual) PT INR APTT ABG pH ABG pO2 ABG HCO3 ABG O2 Saturation ABG Base Excess ABG Hemoglobin Oxyhemoglobin Sodium Potassium Chloride Carbon Dioxide BUN Creatinine Glucose POC Glucose 114 H 113 H Lactic Acid Calcium Ionized Calcium Phosphorus Magnesium Total Bilirubin AST ALT Alkaline Phosphatase Ammonia Total Creatine Kinase CK-MB (CK-2) CK-MB (CK-2) Rel Index Total Protein Albumin Urine WBC (Auto) Vancomycin Trough Salicylates Acetaminophen Plasma/Serum Alcohol Crossmatch Allied health notes reviewed: RT
--- NOTE | 2020-02-26 19:18 | Progress Note ---
Assessment and Plan Assessment and plan: Coronavirus PCR; negative x 2 02/17: Patient pending placement, Following extubation, the patient has remained with AMS, on restraints, no new fever but tachycardia, still requiring aggressive pulmonary toilet. 02/19; Pseudomonas sputum cultures, colonization/tracheostomy tube No treatment needed 02/21/2020; clinically no change, continue current management Awaiting placement 02/22/20 ; patient is slightly restless and agitated Will try Ativan as needed, awaiting placement 02/23/2020; sinus tachycardia, mild agitation Patient started on Ativan as needed, I will add low-dose of metoprolol Monitor closely 02/24/2020; clinically no change, Awaiting placement 02/25/2020; awaiting placement 02/26/2020; patient is slightly in distress, tracheostomy suction with improvement Awaiting placement --Anoxic brain injury: suspected CT head: No acute abnormality. EEG ordered showed Generalized slowing. No seizures or epileptiform activity. Patient now opening her eyes, can speak and able to follow minor command by nodding head --Acute Respiratory failure with hypoxia:s/p Tracheostomy --Positive sputum cultures; colonization tracheostomy, No need to treat per ID --Status post cardiac arrest s/p intubation, s/p trach and PEG on 12/12 with mechanical ventilation, now on T-piece CTA was done and negative for PE, Echo quality is poor, showed diastolic dysfunction --Oropharyngeal dysphagia s/p PEG --Persistent Tachycardia --BHAVANA / vasomotor nephropathy; resolved --Anemia, microcytic Status post 3 units PRBC transfusion, H&H low stable --Acute metabolic encephalopathy/toxic encephalopathy multifactorial, supportive care --Hyperammonemia -resolved --Metabolic Acidosis Alcohol ketoacidosis vs hypoprofusion Continue to monitor --Acute cystitis --ELevated LFTs, stable now due to ischemic hepatitis. --Leucocytosis with sepsis Source MRSA bacteremia and MSSA pneumonia. UA showed pyuria. RUQ US showed no ascites. Repeat TTE negative for vegetation. Completed 7 days of Ceftriaxone on 11/29/2019. Treated with Abx vancomycin 1 gm IV q 12 hour total 2 week till 12/30/2019 Resolved --MSSA pneumonia: Status post vancomycin till 12/30/2019 --ALcohol USe Disorder given ongoing Alcohol use almost daily, s/p IV Thiamine monitor --Severe hypokalemia -Repleted --Seizure disorder: treat with Keppra --H. Influenzae, tracheobronchitis, treated with abx --Moderate to severe fecal impaction - will add stool softner --Anxiety disorder: Psych consulted --DNR CODE STATUS Disposition: prognosis guarded. PT recommended subacute rehab, discharge pending on placement. negative for COVID 19 Disposition ;awaiting Placement to SNF History Interval history: Patient seen and examined at the bedside No new overnight events reported by the nursing except for Intermittent episodes of agitation Improved with medications Patient is chronically ill looking in mild distress Tracheostomy on T-piece Vital signs noted Hospitalist Physical - Constitutional Vitals: Temp Pulse Resp BP Pulse Ox 98.0 F 111 H 22 137/78 98 02/26/20 16:09 02/26/20 15:00 02/26/20 16:09 02/26/20 16:09 02/26/20 11:12 General appearance: Present: mild distress, cachectic, disheveled, other (Noncommunicative) - EENT Eyes: Present: PERRL, EOM intact - Neck Neck: Present: supple, other (Tracheostomy in place) - Respiratory Respiratory effort: normal Respiratory: bilateral: diminished, rhonchi, negative: rales, wheezing - Cardiovascular Rhythm: regular Heart Sounds: Present: S1 & S2 - Extremities Extremities: no ischemia, No edema - Abdominal General gastrointestinal: soft, non-tender, non-distended, normal bowel sounds - Integumentary Integumentary: Present: clear, warm - Psychiatric Psychiatric: other (Noncommunicative) - Neurologic Neurologic: other (Noncommunicative) HEART Score - HEART Score Troponin: Troponin T < 0.010 ng/mL (0.00-0.029) 11/22/19 23:27 Results - Labs CBC & Chem 7: 02/17/20 07:57 02/17/20 07:57 Labs: Laboratory Last Values WBC 12.6 K/mm3 (4.5-11.0) H 02/17/20 07:57 RBC 3.52 M/mm3 (3.65-5.03) L 02/17/20 07:57 Hgb 10.2 gm/dl (10.1-14.3) 02/17/20 07:57 Hct 30.8 % (30.3-42.9) 02/17/20 07:57 MCV 88 fl (79-97) 02/17/20 07:57 MCH 29 pg (28-32) 02/17/20 07:57 MCHC 33 % (30-34) 02/17/20 07:57 RDW 15.3 % (13.2-15.2) H 02/17/20 07:57 Plt Count 643 K/mm3 (140-440) H 02/17/20 07:57 Lymph % (Auto) 21.3 % (13.4-35.0) 02/17/20 07:57 Phillips % (Auto) 8.0 % (0.0-7.3) H 02/17/20 07:57 Eos % (Auto) 2.5 % (0.0-4.3) 02/17/20 07:57 Baso % (Auto) 0.5 % (0.0-1.8) 02/17/20 07:57 Lymph # 2.7 K/mm3 (1.2-5.4) 02/17/20 07:57 Phillips # 1.0 K/mm3 (0.0-0.8) H 02/17/20 07:57 Eos # 0.3 K/mm3 (0.0-0.4) 02/17/20 07:57 Baso # 0.1 K/mm3 (0.0-0.1) 02/17/20 07:57 Add Manual Diff Complete 12/25/19 03:47 Total Counted 200 12/25/19 03:47 Seg Neutrophils % 67.7 % (40.0-70.0) 02/17/20 07:57 Seg Neuts % (Manual) 97.5 % (40.0-70.0) H 12/25/19 03:47 Band Neutrophils % 0 % 12/25/19 03:47 Lymphocytes % (Manual) 1.0 % (13.4-35.0) L 12/25/19 03:47 Reactive Lymphs % (Man) 0 % 12/25/19 03:47 Monocytes % (Manual) 1.5 % (0.0-7.3) 12/25/19 03:47 Eosinophils % (Manual) 0 % (0.0-4.3) 12/25/19 03:47 Basophils % (Manual) 0 % (0.0-1.8) 12/25/19 03:47 Metamyelocytes % 0 % 12/25/19 03:47 Myelocytes % 0 % 12/25/19 03:47 Promyelocytes % 0 % 12/25/19 03:47 Blast Cells % 0 % 12/25/19 03:47 Nucleated RBC % Not Reportable 12/25/19 03:47 Seg Neutrophils # 8.5 K/mm3 (1.8-7.7) H 02/17/20 07:57 Seg Neutrophils # Man 35.3 K/mm3 (1.8-7.7) H 12/25/19 03:47 Band Neutrophils # 0.0 K/mm3 12/25/19 03:47 Lymphocytes # (Manual) 0.4 K/mm3 (1.2-5.4) L 12/25/19 03:47 Abs React Lymphs (Man) 0.0 K/mm3 12/25/19 03:47 Monocytes # (Manual) 0.5 K/mm3 (0.0-0.8) 12/25/19 03:47 Eosinophils # (Manual) 0.0 K/mm3 (0.0-0.4) 12/25/19 03:47 Basophils # (Manual) 0.0 K/mm3 (0.0-0.1) 12/25/19 03:47 Metamyelocytes # 0.0 K/mm3 12/25/19 03:47 Myelocytes # 0.0 K/mm3 12/25/19 03:47 Promyelocytes # 0.0 K/mm3 12/25/19 03:47 Blast Cells # 0.0 K/mm3 12/25/19 03:47 Pathologist Review 12/13/19 07:48 WBC Morphology Not Reportable 12/25/19 03:47 Hypersegmented Neuts Not Reportable 12/25/19 03:47 Hyposegmented Neuts Not Reportable 12/25/19 03:47 Hypogranular Neuts Not Reportable 12/25/19 03:47 Smudge Cells Not Reportable 12/25/19 03:47 Toxic Granulation Not Reportable 12/25/19 03:47 Toxic Vacuolation Not Reportable 12/25/19 03:47 Dohle Bodies Not Reportable 12/25/19 03:47 Pelger-Huet Anomaly Not Reportable 12/25/19 03:47 Dominique Rods Not Reportable 12/25/19 03:47 Platelet Estimate Consistent w auto 12/25/19 03:47 Clumped Platelets Not Reportable 12/25/19 03:47 Plt Clumps, EDTA Not Reportable 12/25/19 03:47 Large Platelets Not Reportable 12/25/19 03:47 Giant Platelets Not Reportable 12/25/19 03:47 Platelet Satelliting Not Reportable 12/25/19 03:47 Plt Morphology Comment Not Reportable 12/25/19 03:47 RBC Morphology Not Reportable 12/25/19 03:47 Dimorphic RBCs Not Reportable 12/25/19 03:47 Polychromasia Not Reportable 12/25/19 03:47 Hypochromasia Not Reportable 12/25/19 03:47 Poikilocytosis Not Reportable 12/25/19 03:47 Anisocytosis 1+ 12/25/19 03:47 Microcytosis Not Reportable 12/25/19 03:47 Macrocytosis Not Reportable 12/25/19 03:47 Spherocytes Not Reportable 12/25/19 03:47 Pappenheimer Bodies Not Reportable 12/25/19 03:47 Sickle Cells Not Reportable 12/25/19 03:47 Target Cells Not Reportable 12/25/19 03:47 Tear Drop Cells Not Reportable 12/25/19 03:47 Ovalocytes Not Reportable 12/25/19 03:47 Helmet Cells Not Reportable 12/25/19 03:47 Frias-Mahomet Bodies Not Reportable 12/25/19 03:47 [place] Rings Not Reportable 12/25/19 03:47 Jamshid Cells Not Reportable 12/25/19 03:47 Bite Cells Not Reportable 12/25/19 03:47 Crenated Cell Not Reportable 12/25/19 03:47 Elliptocytes Not Reportable 12/25/19 03:47 Acanthocytes (Spur) Not Reportable 12/25/19 03:47 Rouleaux Not Reportable 12/25/19 03:47 Hemoglobin C Crystals Not Reportable 12/25/19 03:47 Schistocytes Not Reportable 12/25/19 03:47 Malaria parasites Not Reportable 12/25/19 03:47 Gregg Bodies Not Reportable 12/25/19 03:47 Hem Pathologist Commnt No 12/25/19 03:47 PT 17.0 Sec. (12.2-14.9) H 11/23/19 03:47 INR 1.36 (0.87-1.13) H 11/23/19 03:47 APTT 128.2 Sec. (24.2-36.6) H* 11/23/19 03:47 Heparin Anti-Xa Level 0.31 U.I./ml (0.3-0.7) 11/23/19 09:03 ABG pH 7.429 pH Units (7.350-7.450) 01/09/20 08:51 ABG pCO2 39.1 mm Hg 01/09/20 08:51 ABG pO2 94.3 mm Hg (80.0-90.0) H 01/09/20 08:51 ABG HCO3 25.3 mmol/L (20.0-26.0) 01/09/20 08:51 ABG O2 Saturation 97.4 % (95.0-99.0) 01/09/20 08:51 ABG O2 Content 12.9 (0.0-44) 01/09/20 08:51 ABG Base Excess 1.0 mmol/L (-2.0-3.0) 01/09/20 08:51 ABG Hemoglobin 9.5 gm/dl (12.0-16.0) L 01/09/20 08:51 ABG Carboxyhemoglobin 1.3 % (0.0-5.0) 01/09/20 08:51 ABG Methemoglobin 0.4 % (0.0-1.5) 01/09/20 08:51 Oxyhemoglobin 95.7 % (95.0-99.0) 01/09/20 08:51 FiO2 35 % 01/09/20 08:51 Sodium 137 mmol/L (137-145) 02/17/20 07:57 Potassium 4.7 mmol/L (3.6-5.0) 02/17/20 07:57 Chloride 96.9 mmol/L (98-107) L 02/17/20 07:57 Carbon Dioxide 25 mmol/L (22-30) 02/17/20 07:57 Anion Gap 20 mmol/L 02/17/20 07:57 BUN 21 mg/dL (7-17) H 02/17/20 07:57 Creatinine 0.4 mg/dL (0.7-1.2) L 02/17/20 07:57 Estimated GFR > 60 ml/min 02/17/20 07:57 BUN/Creatinine Ratio 53 % 02/17/20 07:57 Glucose 113 mg/dL (65-100) H 02/17/20 07:57 POC Glucose 123 (70-105) H 02/26/20 16:14 Lactic Acid 1.80 mmol/L (0.7-2.0) 11/25/19 05:05 Calcium 10.5 mg/dL (8.4-10.2) H 02/17/20 07:57 Ionized Calcium 4.5 mg/dL (4.8-5.6) L 11/23/19 06:32 Phosphorus 4.20 mg/dL (2.5-4.5) D 11/28/19 08:59 Magnesium 2.30 mg/dL (1.7-2.3) 11/29/19 13:41 Total Bilirubin 0.40 mg/dL (0.1-1.2) 12/13/19 07:48 AST 27 units/L (5-40) 12/13/19 07:48 ALT 26 units/L (7-56) 12/13/19 07:48 Alkaline Phosphatase 316 units/L (35-129) H 12/13/19 07:48 Ammonia 42.0 umol/L (25-60) 11/29/19 13:41 Total Creatine Kinase 139 units/L (30-135) H 11/22/19 23:27 CK-MB (CK-2) 8.3 ng/mL (0.0-4.0) H 11/22/19 23:27 CK-MB (CK-2) Rel Index 5.9 (0-4) H 11/22/19 23:27 Troponin T < 0.010 ng/mL (0.00-0.029) 11/22/19 23:27 Total Protein 6.8 g/dL (6.3-8.2) 12/13/19 07:48 Albumin 2.4 g/dL (3.9-5) L 12/13/19 07:48 Albumin/Globulin Ratio 0.5 % 12/13/19 07:48 Lipase 18 units/L (13-60) 11/23/19 00:34 Procalcitonin 1.09 ng/mL (<0.15) 11/23/19 04:53 TSH 1.010 mlU/mL (0.270-4.200) 02/12/20 07:36 Free T4 1.08 ng/dL (0.76-1.46) 02/12/20 07:36 Urine Color Yellow (Yellow) 12/16/19 Unknown Urine Turbidity Slightly-cloudy (Clear) 12/16/19 Unknown Urine pH 5.0 (5.0-7.0) 12/16/19 Unknown Ur Specific [place] 1.018 (1.003-1.030) 12/16/19 Unknown Urine Protein 30 mg/dl mg/dL (Negative) 12/16/19 Unknown Urine Glucose (UA) Neg mg/dL (Negative) 12/16/19 Unknown Urine Ketones Neg mg/dL (Negative) 12/16/19 Unknown Urine Blood Sm (Negative) 12/16/19 Unknown Urine Nitrite Neg (Negative) 12/16/19 Unknown Urine Bilirubin Neg (Negative) 12/16/19 Unknown Urine Urobilinogen < 2.0 mg/dL (<2.0) 12/16/19 Unknown Ur Leukocyte Esterase Neg (Negative) 12/16/19 Unknown Urine WBC (Auto) 6.0 /HPF (0.0-6.0) 12/16/19 Unknown Urine RBC (Auto) 9.0 /HPF (0.0-6.0) 12/16/19 Unknown U Epithel Cells (Auto) < 1.0 /HPF (0-13.0) 12/16/19 Unknown Urine Bacteria (Auto) 2+ /HPF (Negative) 11/22/19 23:17 Hyaline Casts 3 /LPF 12/16/19 Unknown Granular Casts 3 /LPF 12/16/19 Unknown Urine Mucus Few /HPF 12/16/19 Unknown Vancomycin Trough 33.8 ug/mL (5.0-20.0) H 12/21/19 08:56 Random Vancomycin 16.2 ug/mL (0-40.0) 12/24/19 04:31 Salicylates < 0.3 mg/dL (2.8-20.0) L 11/22/19 23:27 Urine Opiates Screen Presumptive negative 11/22/19 23:17 Urine Methadone Screen Presumptive negative 11/22/19 23:17 Acetaminophen < 5.0 ug/mL (10.0-30.0) L 11/22/19 23:27 Ur Barbiturates Screen Presumptive negative 11/22/19 23:17 Ur Phencyclidine Scrn Presumptive negative 11/22/19 23:17 Ur Amphetamines Screen Presumptive negative 11/22/19 23:17 U Benzodiazepines Scrn Presumptive negative 11/22/19 23:17 Urine Cocaine Screen Presumptive negative 11/22/19 23:17 U Marijuana (THC) Screen Presumptive negative 11/22/19 23:17 Drugs of Abuse Note Disclamer 11/22/19 23:17 Plasma/Serum Alcohol 0.08 % (0-0.07) H 11/22/19 23:27 Coronavirus (PCR) Negative (Negative) 02/05/20 07:50 Hepatitis A IgM Ab Non-reactive (NonReactive) 11/23/19 01:19 Hep Bs Antigen Non-reactive (Negative) 11/23/19 01:19 Hep B Core IgM Ab Non-reactive (NonReactive) 11/23/19 01:19 Hepatitis C Antibody Non-reactive (NonReactive) 11/23/19 01:19 Blood Type O POSITIVE 12/21/19 14:54 Antibody Screen Negative 12/21/19 14:54 Crossmatch See Detail 12/21/19 14:54 - Diagnostic Impressions Diagnostic Impressions: Echocardiogram 11/23/19 03:58 Transthoracic Echocardiogram Indication: Cardiac arrest BP: 131/89 HR: 115 Conclusions *The study quality is technically difficult. *Global left ventricular wall motion and contractility are within normal limits. *The estimated ejection fraction is 55-60%. *Abnormal left ventricular diastolic filling is observed, consistent with impaired relaxation. *There is no pericardial effusion. Findings Procedure Info: The study quality is technically difficult. The study was technically limited due to the patient's inability to lay in the left lateral decubitus position. Left Ventricle: The left ventricular chamber size is normal. There is no left ventricular hypertrophy. Global left ventricular wall motion and contractility are within normal limits. Global left ventricular systolic function is normal. The estimated ejection fraction is 55-60%. Abnormal left ventricular diastolic filling is observed, consistent with impaired relaxation. Left Atrium: The left atrial chamber size is normal. Aortic Valve: The aortic valve leaflets are mildly thickened. Mitral Valve: The mitral valve leaflets are mildly thickened. There is no evidence of mitral regurgitation. Tricuspid Valve: The tricuspid valve leaflets are normal. There is trace tricuspid regurgitation. The right ventricular systolic pressure is calculated at 33 mmHg. Pulmonic Valve: The pulmonic valve appears normal. Pericardium: The pericardium appears normal. There is no pericardial effusion. Aorta: The aorta appears normal. Venous: The inferior vena cava appears normal in size. Measurements Chambers 2D Name Value Normal Range IVSd (2D) 0.94 cm (0.6 - 1.1) LVPWd (2D) 0.81 cm (0.6 - 1.1) LVIDd (2D) 3.6 cm (3.7 - 5.6) LVIDs (2D) 2.27 cm (2 - 3.8) LV FS (2D) 36.93 % - EF Teichholz (2D) 67.76 % - Ao root diameter (2D) 3.03 cm (2 - 3.7) Volumes/Mass Name Value Normal Range LA ESV SP 4CH (A/L) 16.89 ml - LA ESV SP 4CH (MOD) 15.52 ml - Diastolic/Systolic Function Name Value Normal Range MV E-wave Vmax 0.55 m/sec - MV deceleration time 200.89 msec - MV A-wave Vmax 0.68 m/sec - MV E:A ratio 0.82 ratio - Aortic Valve Name Value Normal Range AV Vmax 1.1 m/sec - AV VTI 15.9 cm - AV peak gradient 4.86 mmHg - AV mean gradient 2.59 mmHg - LVOT diameter 2 cm - LVOT Vmax 1.03 m/sec - LVOT VTI 15.87 cm - LVOT peak gradient 4.24 mmHg - LVOT mean gradient 2.41 mmHg - SV LVOT 49.77 ml - JOSÉ MIGUEL (continuity Vmax) 2.93 cm2 - JOSÉ MIGUEL (continuity VTI) 3.13 cm2 - Tricuspid Valve Name Value Normal Range TR Vmax 2.74 m/sec - TR peak gradient 303 mmHg - RAP 3 mmHg - RVSP 33 mmHg - IVC diameter 1.77 cm (1.2 - 2.3) Pulmonic Valve/Qp:Qs Name Value Normal Range PV Vmax 0.77 m/sec - PV peak gradient 2.4 mmHg - PV acceleration time 114.18 msec - Echocardiogram Limited Views 12/17/19 14:53 Transthoracic Echocardiogram Indication: R/O Vegetations BP: 144/83 HR: 133 Conclusions *Global left ventricular systolic function is mildly decreased. *The estimated ejection fraction is 45-50%. *A trivial pericardial effusion is visualized. Findings Left Ventricle: The left ventricular chamber size is normal. Global left ventricular systolic function is mildly decreased. The estimated ejection fraction is 45-50%. Left Atrium: The left atrial chamber size is normal. Right Ventricle: The right ventricular cavity size is normal. Right Atrium: The right atrial cavity size is normal. Aortic Valve: The aortic valve is not well visualized. There is no evidence of aortic regurgitation. Mitral Valve: The mitral valve leaflets are mildly thickened. There is trace of mitral regurgitation. Tricuspid Valve: The tricuspid valve leaflets are mildly thickened. There is trace tricuspid regurgitation. The right ventricular systolic pressure is calculated at 29 mmHg. Pulmonic Valve: The pulmonic valve is not well visualized. There is no evidence of pulmonic regurgitation. Pericardium: A trivial pericardial effusion is visualized. Aorta: There is no dilatation of the ascending aorta. There is no dilatation of the aortic root. Venous: The inferior vena cava appears normal in size. There is a greater than 50% respiratory change in the inferior vena cava dimension. Measurements Chambers 2D Name Value Normal Range IVSd (2D) 0.83 cm (0.6 - 1.1) LVPWd (2D) 0.98 cm (0.6 - 1.1) LVIDd (2D) 3.71 cm (3.7 - 5.6) LVIDs (2D) 2.93 cm (2 - 3.8) LV FS (2D) 21.12 % - EF Teichholz (2D) 43.71 % - Ao root diameter (2D) 3.02 cm (2 - 3.7) Volumes/Mass Name Value Normal Range LA ESV SP 4CH (A/L) 36.8 ml - LA ESV SP 2CH (A/L) 45.89 ml - LA ESV BP (A/L) 42.35 ml - LA ESV BP (A/L) index 26.63 ml/m2 - LA ESV SP 4CH (MOD) 34.42 ml - LA ESV SP 2CH (MOD) 44.21 ml - LA ESV BP (MOD) 39.82 ml - LA ESV BP (MOD) index 25.05 ml/m2 - Aortic Valve Name Value Normal Range LVOT diameter 1.63 cm - Tricuspid Valve Name Value Normal Range TR Vmax 2.56 m/sec - TR peak gradient 26 mmHg - RAP 3 mmHg - RVSP 29 mmHg - IVC diameter 1.83 cm (1.2 - 2.3) Dela Cruz/IV: Voiding Method Incontinent IV Catheter Type [Forearm] Peripheral IV IV Catheter Type [Left Forearm INT / Saline Lock ] IV Catheter Type [Right INT / Saline Lock Antecubital] IV Catheter Type [Right Hand] Peripheral IV IV Catheter Type [Right Wrist] Peripheral IV IV Catheter Type [Left Wrist] Peripheral IV IV Catheter Type [Left Peripheral IV Antecubital] IV Catheter Type [Right INT / Saline Lock Forearm] IV Catheter Type [Left Hand] Peripheral IV Active Medications - Current Medications Current Medications: Generic Name Dose Route Start Last Admin Trade Name Devanteq PRN Reason Stop Dose Admin Acetaminophen 650 mg 12/06/19 10:25 02/24/20 21:11 Tylenol FEEDTUBE 650 mg Q6H PRN Administration TEMP >/=100.3 Acetylcysteine 200 mg 02/16/20 20:00 02/26/20 08:31 Mucomyst Inhalation INHALATION Not Given Q12HRT LUCHO Alprazolam 1 mg 02/21/20 18:24 02/26/20 01:24 Xanax PO 1 mg Q8H PRN Administration Anxiety Lipase/Protease/Amylase 1 each 11/23/19 11:[address] 10,500 Unit FEEDTUBE PRN PRN Use w/ sod bicarb for FT Bisacodyl 10 mg 02/06/20 13:57 Dulcolax TX QDAY PRN Constipation unrelieved by MOM Docusate Sodium 100 mg 02/18/20 22:00 02/26/20 10:19 Colace FEEDTUBE 100 mg BID LUCHO Administration Glycopyrrolate 2 mg 12/31/19 20:00 02/26/20 14:55 Robinul PO 2 mg TID LUCHO Administration Haloperidol Lactate 2 mg 02/21/20 10:51 02/23/20 21:05 Haldol FEEDTUBE 2 mg Q6H PRN Administration Agitation Hydralazine HCl 10 mg 11/24/19 00:45 12/18/19 13:25 Apresoline IV 10 mg Q6H PRN Administration SBP > 160 Hydroxyzine Pamoate 25 mg 12/06/19 10:00 02/26/20 10:20 Vistaril PO 25 mg BID LUCHO Administration Lansoprazole 30 mg 11/27/19 10:00 02/26/20 10:22 Prevacid Solutab FEEDTUBE 30 mg QDAY LUCHO Administration Levalbuterol HCl 0.63 mg 02/17/20 00:00 02/26/20 17:44 Xopenex IH Not Given Q8HRT LUCHO Levetiracetam 500 mg 11/29/19 10:00 02/26/20 10:19 Keppra PO 500 mg BID LUCHO Administration Metoprolol Tartrate 12.5 mg 02/23/20 22:00 02/26/20 10:19 Metoprolol PO 12.5 mg BID LUCHO Administration Mirtazapine 30 mg 12/06/19 10:00 02/26/20 10:20 Remeron PO 30 mg DAILY LUCHO Administration Nicotine 21 mg 02/16/20 13:00 02/26/20 10:20 Habitrol TD 21 mg QDAY LUCHO Administration Ondansetron HCl 4 mg 12/10/19 07:53 02/25/20 02:51 Zofran IV 4 mg Q4H PRN Administration Nausea And Vomiting Polyethylene Glycol 17 gm 02/06/20 13:57 Miralax 3350 PO QDAY PRN Constipation Quetiapine Fumarate 100 mg 01/09/20 21:41 02/25/20 22:12 Seroquel FEEDTUBE 100 mg QHS LUCHO Administration Scopolamine 1 each 02/08/20 15:00 02/26/20 10:21 Transderm-Scop TD 1 each Q3D LUCHO Administration Sertraline HCl 25 mg 01/01/20 10:00 02/26/20 10:21 Zoloft PO 25 mg QDAY LUCHO Administration Simple Syrup 15 ml 11/23/19 11:50 Simple Syrup FEEDTUBE PRN PRN Hypoglycemia BG<70 Simple Syrup 30 ml 11/23/19 11:50 Simple Syrup FEEDTUBE PRN PRN Hypoglycemia Sodium Bicarbonate 325 mg 11/23/19 11:50 Sodium Bicarbonate FEEDTUBE PRN PRN For Clogged Feeding Tube Nutrition/Malnutrition Assess - Dietary Evaluation Nutrition/Malnutrition Findings: Nutrition Notes Start: 11/23/19 11:29 Freq: Status: Active Protocol: Document 02/26/20 14:17 LM (Rec: 02/26/20 14:32 LM [id number]) Nutrition Notes Initial or Follow up Reassessment Current Diagnosis Hypertension Other Pertinent Diagnosis Cardaic arrest, ETOH dependence, UTI Current Diet Jevity 1.2 at 60ml/hr Labs/Tests Reviewed Pertinent Medications Reviewed Height 5 ft 6 in Weight 51 kg [place] Body Weight (kg) 59.09 BMI 18.1 Subjective/Other Information Per RN notes, TF is running at goal and pt is tolerating. Percent of energy/protein needs met: 89%/100% Burn Absent Trauma Absent GI Symptoms None Current % PO Negligible Interpretation of Weight Loss (severe) >2% in 1 week Muscle Mass Mild Depletion (non-severe) #2 Nutrition Diagnosis Malnutrition Diagnosis Progress(for reassessment Continues documentation) #1 Nutrition Diagnosis Inadequate oral intake Diagnosis Progress(for reassessment Continues documentation) Is patient on ventilator? No Is Patient Ambulatory and/or Out of Bed No REE-([facility]-confined to bed) 1356.672 Kcal/Kg value to use for calculation 38 Approximate Energy Requirements Using 1938 kcal/Kg Calculation Used for Recommendations Kcal/kg Additional Notes Protein: 60-75g (1.2-1.5g/kg) Fluid: 1 ml/kcal Nutrition Intervention Change Diet Order: Continue TF Nutrition Support: Change to Jevity 1.2 at 60ml/ hr Flush 100ml q4h Kcal 1,728 Protein (gm) 80 Fluid (mL) 1,162 Goal #1 TF tolerance Goal #2 Meet at least 80% of energy and protein needs via TF Goal #3 Wt gain/maintenacne Anticipated Discharge Needs: TF Follow-Up By: 02/29/20 Additional Comments F/U for TF tolerance, wt
[2020-02-26] MEDS: QUEtiapine 100 MG TAB FEEDTUBE SCH (21:36)
[2020-02-27] MEDS: ACETYLCYSTEINE 20% 200 MG/1 ML *FOR INHALATION USE INHALATION SCH (08:51)
[2020-02-27] MEDS: LEVALBUTEROL 0.63 MG/3 ML NEBU IH SCH ×3 (08:52→16:58)
[2020-02-27] MEDS: NICOTINE 21 MG/24 HR PATCH TD SCH (09:23)
[2020-02-27] MEDS: levETIRAcetam 500 MG/5 ML ORAL LIQD PO SCH ×2 (09:23→21:40)
[2020-02-27] MEDS: DOCUSATE SODIUM 100 MG/10 ML ORAL LIQD FEEDTUBE SCH ×2 (09:23→21:45)
[2020-02-27] MEDS: SERTRALINE 50 MG TAB PO SCH (09:36)
[2020-02-27] MEDS: hydrOXYzine PAMOATE 25 MG CAP PO SCH ×2 (09:37→21:43)
[2020-02-27] MEDS: MIRTAZAPINE 30 MG TAB PO SCH (09:37)
[2020-02-27] MEDS: LANSOPRAZOLE 30 MG SOLUTAB FEEDTUBE SCH (09:40)
[2020-02-27] MEDS: GLYCOPYRROLATE 1 MG TAB PO SCH ×3 (09:44→21:42)
[2020-02-27] MEDS: METOPROLOL TARTRATE 25 MG TAB PO SCH ×2 (09:45→21:41)
--- NOTE | 2020-02-27 10:28 | Progress Note ---
Assessment and Plan Assessment and plan: 02/17: Patient pending placement, Following extubation, the patient has remained with AMS, on restraints, no new fever but tachycardia, still requiring aggressive pulmonary toilet. 02/19; Pseudomonas sputum cultures, colonization/tracheostomy tube No treatment needed 02/21/2020; clinically no change, continue current management Awaiting placement 02/22/20 ; patient is slightly restless and agitated Will try Ativan as needed, awaiting placement 02/23/2020; sinus tachycardia, mild agitation Patient started on Ativan as needed, I will add low-dose of metoprolol Monitor closely 02/24/2020; clinically no change, Awaiting placement 02/25/2020; awaiting placement 02/26/2020; patient is slightly in distress, tracheostomy suction with improvement Awaiting placement 02/27/2020; patient is slightly agitated, responds with medications, awaiting placement Assessment and plan: --Anoxic brain injury: suspected CT head: No acute abnormality. EEG ordered showed Generalized slowing. No seizures or epileptiform activity. Patient now opening her eyes, can speak and able to follow minor command by nodding head --Acute Respiratory failure with hypoxia:s/p Tracheostomy --Positive sputum cultures; colonization tracheostomy, No need to treat per ID --Status post cardiac arrest s/p intubation, s/p trach and PEG on 12/12 with mechanical ventilation, now on T-piece CTA was done and negative for PE, Echo quality is poor, showed diastolic dysfunction --Oropharyngeal dysphagia s/p PEG --Persistent Tachycardia --BHAVANA / vasomotor nephropathy; resolved --Anemia, microcytic Status post 3 units PRBC transfusion, H&H low stable --Acute metabolic encephalopathy/toxic encephalopathy multifactorial, supportive care --Hyperammonemia -resolved --Metabolic Acidosis Alcohol ketoacidosis vs hypoprofusion;Continue to monitor --Acute cystitis --ELevated LFTs, stable now:due to ischemic hepatitis. --Leucocytosis with sepsis Source MRSA bacteremia and MSSA pneumonia. UA showed pyuria. RUQ US showed no ascites. Repeat TTE negative for vegetation. Completed 7 days of Ceftriaxone on 11/29/2019. Treated with Abx vancomycin 1 gm IV q 12 hour total 2 week till 12/30/2019,Resolved --MSSA pneumonia: Status post vancomycin till 12/30/2019 --ALcohol USe Disorder given ongoing Alcohol use almost daily, s/p IV Thiamine --Severe hypokalemia: Repleted --Seizure disorder: treat with Keppra --H. Influenzae, tracheobronchitis, treated with abx --Moderate to severe fecal impaction - will add stool softner --Anxiety disorder: Psych consulted --DNR CODE STATUS Disposition: prognosis guarded. PT recommended subacute rehab, discharge pending on placement. negative for COVID 19 Disposition ;awaiting Placement to SNF Brief history; 54-year-old female with a past medical history of Hypertension, Depression, Tobacco use Disorder, Alcohol use Disorder as confirmed by Daughter and pt's mother presents to the hospital status post cardiac arrest at home. EMS found pt in [place]. They were unable to intubate patient with a ET tube because she was clenching down therefore Joe airway placed. In the ER patient was was intubated admitted to ICU , patient was diagnosed with anoxic brain injury, sepsis with MRSA bacteremia and MSSA pneumonia, alcoholic liver disease. Family member initially wished for full code then changed to DNR, patient treated with IV antibiotics for sepsis, unable to wean, status post trach and PEG on 12/13/19. Weaned off from the vent and put on T-piece. Awaiting placement. Multiple social issues History Interval history: Patient seen and examined in her room contact isolation Medications and tests reviewed Status post tracheostomy on T-piece, clinically stable Awaiting placement Vital signs noted Hospitalist Physical - Constitutional Vitals: Temp Pulse Resp BP Pulse Ox 98.4 F 95 H 20 126/79 99 02/27/20 07:35 02/27/20 09:45 02/27/20 09:04 02/27/20 09:45 02/27/20 09:04 General appearance: Present: mild distress, cachectic, disheveled, other (Noncommunicative) - EENT Eyes: Present: PERRL, EOM intact - Neck Neck: Present: supple, normal ROM - Respiratory Respiratory effort: normal Respiratory: bilateral: diminished, rhonchi, negative: rales, wheezing - Cardiovascular Rhythm: regular Heart Sounds: Present: S1 & S2 - Extremities Extremities: no ischemia, No edema - Abdominal General gastrointestinal: soft, non-tender, non-distended, normal bowel sounds - Integumentary Integumentary: Present: clear, warm - Psychiatric Psychiatric: appropriate mood/affect, cooperative - Neurologic Neurologic: moves all extremities HEART Score - HEART Score Troponin: Troponin T < 0.010 ng/mL (0.00-0.029) 11/22/19 23:27 Results - Labs CBC & Chem 7: 02/17/20 07:57 02/17/20 07:57 Labs: Laboratory Last Values WBC 12.6 K/mm3 (4.5-11.0) H 02/17/20 07:57 RBC 3.52 M/mm3 (3.65-5.03) L 02/17/20 07:57 Hgb 10.2 gm/dl (10.1-14.3) 02/17/20 07:57 Hct 30.8 % (30.3-42.9) 02/17/20 07:57 MCV 88 fl (79-97) 02/17/20 07:57 MCH 29 pg (28-32) 02/17/20 07:57 MCHC 33 % (30-34) 02/17/20 07:57 RDW 15.3 % (13.2-15.2) H 02/17/20 07:57 Plt Count 643 K/mm3 (140-440) H 02/17/20 07:57 Lymph % (Auto) 21.3 % (13.4-35.0) 02/17/20 07:57 Gallia % (Auto) 8.0 % (0.0-7.3) H 02/17/20 07:57 Eos % (Auto) 2.5 % (0.0-4.3) 02/17/20 07:57 Baso % (Auto) 0.5 % (0.0-1.8) 02/17/20 07:57 Lymph # 2.7 K/mm3 (1.2-5.4) 02/17/20 07:57 Gallia # 1.0 K/mm3 (0.0-0.8) H 02/17/20 07:57 Eos # 0.3 K/mm3 (0.0-0.4) 02/17/20 07:57 Baso # 0.1 K/mm3 (0.0-0.1) 02/17/20 07:57 Add Manual Diff Complete 12/25/19 03:47 Total Counted 200 12/25/19 03:47 Seg Neutrophils % 67.7 % (40.0-70.0) 02/17/20 07:57 Seg Neuts % (Manual) 97.5 % (40.0-70.0) H 12/25/19 03:47 Band Neutrophils % 0 % 12/25/19 03:47 Lymphocytes % (Manual) 1.0 % (13.4-35.0) L 12/25/19 03:47 Reactive Lymphs % (Man) 0 % 12/25/19 03:47 Monocytes % (Manual) 1.5 % (0.0-7.3) 12/25/19 03:47 Eosinophils % (Manual) 0 % (0.0-4.3) 12/25/19 03:47 Basophils % (Manual) 0 % (0.0-1.8) 12/25/19 03:47 Metamyelocytes % 0 % 12/25/19 03:47 Myelocytes % 0 % 12/25/19 03:47 Promyelocytes % 0 % 12/25/19 03:47 Blast Cells % 0 % 12/25/19 03:47 Nucleated RBC % Not Reportable 12/25/19 03:47 Seg Neutrophils # 8.5 K/mm3 (1.8-7.7) H 02/17/20 07:57 Seg Neutrophils # Man 35.3 K/mm3 (1.8-7.7) H 12/25/19 03:47 Band Neutrophils # 0.0 K/mm3 12/25/19 03:47 Lymphocytes # (Manual) 0.4 K/mm3 (1.2-5.4) L 12/25/19 03:47 Abs React Lymphs (Man) 0.0 K/mm3 12/25/19 03:47 Monocytes # (Manual) 0.5 K/mm3 (0.0-0.8) 12/25/19 03:47 Eosinophils # (Manual) 0.0 K/mm3 (0.0-0.4) 12/25/19 03:47 Basophils # (Manual) 0.0 K/mm3 (0.0-0.1) 12/25/19 03:47 Metamyelocytes # 0.0 K/mm3 12/25/19 03:47 Myelocytes # 0.0 K/mm3 12/25/19 03:47 Promyelocytes # 0.0 K/mm3 12/25/19 03:47 Blast Cells # 0.0 K/mm3 12/25/19 03:47 Pathologist Review 12/13/19 07:48 WBC Morphology Not Reportable 12/25/19 03:47 Hypersegmented Neuts Not Reportable 12/25/19 03:47 Hyposegmented Neuts Not Reportable 12/25/19 03:47 Hypogranular Neuts Not Reportable 12/25/19 03:47 Smudge Cells Not Reportable 12/25/19 03:47 Toxic Granulation Not Reportable 12/25/19 03:47 Toxic Vacuolation Not Reportable 12/25/19 03:47 Dohle Bodies Not Reportable 12/25/19 03:47 Pelger-Huet Anomaly Not Reportable 12/25/19 03:47 Dominique Rods Not Reportable 12/25/19 03:47 Platelet Estimate Consistent w auto 12/25/19 03:47 Clumped Platelets Not Reportable 12/25/19 03:47 Plt Clumps, EDTA Not Reportable 12/25/19 03:47 Large Platelets Not Reportable 12/25/19 03:47 Giant Platelets Not Reportable 12/25/19 03:47 Platelet Satelliting Not Reportable 12/25/19 03:47 Plt Morphology Comment Not Reportable 12/25/19 03:47 RBC Morphology Not Reportable 12/25/19 03:47 Dimorphic RBCs Not Reportable 12/25/19 03:47 Polychromasia Not Reportable 12/25/19 03:47 Hypochromasia Not Reportable 12/25/19 03:47 Poikilocytosis Not Reportable 12/25/19 03:47 Anisocytosis 1+ 12/25/19 03:47 Microcytosis Not Reportable 12/25/19 03:47 Macrocytosis Not Reportable 12/25/19 03:47 Spherocytes Not Reportable 12/25/19 03:47 Pappenheimer Bodies Not Reportable 12/25/19 03:47 Sickle Cells Not Reportable 12/25/19 03:47 Target Cells Not Reportable 12/25/19 03:47 Tear Drop Cells Not Reportable 12/25/19 03:47 Ovalocytes Not Reportable 12/25/19 03:47 Helmet Cells Not Reportable 12/25/19 03:47 [place] Bodies Not Reportable 12/25/19 03:47 [place] Rings Not Reportable 12/25/19 03:47 [place] Cells Not Reportable 12/25/19 03:47 Bite Cells Not Reportable 12/25/19 03:47 Crenated Cell Not Reportable 12/25/19 03:47 Elliptocytes Not Reportable 12/25/19 03:47 Acanthocytes (Spur) Not Reportable 12/25/19 03:47 Rouleaux Not Reportable 12/25/19 03:47 Hemoglobin C Crystals Not Reportable 12/25/19 03:47 Schistocytes Not Reportable 12/25/19 03:47 Malaria parasites Not Reportable 12/25/19 03:47 Gregg Bodies Not Reportable 12/25/19 03:47 Hem Pathologist Commnt No 12/25/19 03:47 PT 17.0 Sec. (12.2-14.9) H 11/23/19 03:47 INR 1.36 (0.87-1.13) H 11/23/19 03:47 APTT 128.2 Sec. (24.2-36.6) H* 11/23/19 03:47 Heparin Anti-Xa Level 0.31 U.I./ml (0.3-0.7) 11/23/19 09:03 ABG pH 7.429 pH Units (7.350-7.450) 01/09/20 08:51 ABG pCO2 39.1 mm Hg 01/09/20 08:51 ABG pO2 94.3 mm Hg (80.0-90.0) H 01/09/20 08:51 ABG HCO3 25.3 mmol/L (20.0-26.0) 01/09/20 08:51 ABG O2 Saturation 97.4 % (95.0-99.0) 01/09/20 08:51 ABG O2 Content 12.9 (0.0-44) 01/09/20 08:51 ABG Base Excess 1.0 mmol/L (-2.0-3.0) 01/09/20 08:51 ABG Hemoglobin 9.5 gm/dl (12.0-16.0) L 01/09/20 08:51 ABG Carboxyhemoglobin 1.3 % (0.0-5.0) 01/09/20 08:51 ABG Methemoglobin 0.4 % (0.0-1.5) 01/09/20 08:51 Oxyhemoglobin 95.7 % (95.0-99.0) 01/09/20 08:51 FiO2 35 % 01/09/20 08:51 Sodium 137 mmol/L (137-145) 02/17/20 07:57 Potassium 4.7 mmol/L (3.6-5.0) 02/17/20 07:57 Chloride 96.9 mmol/L (98-107) L 02/17/20 07:57 Carbon Dioxide 25 mmol/L (22-30) 02/17/20 07:57 Anion Gap 20 mmol/L 02/17/20 07:57 BUN 21 mg/dL (7-17) H 02/17/20 07:57 Creatinine 0.4 mg/dL (0.7-1.2) L 02/17/20 07:57 Estimated GFR > 60 ml/min 02/17/20 07:57 BUN/Creatinine Ratio 53 % 02/17/20 07:57 Glucose 113 mg/dL (65-100) H 02/17/20 07:57 POC Glucose 101 (70-105) 02/27/20 06:01 Lactic Acid 1.80 mmol/L (0.7-2.0) 11/25/19 05:05 Calcium 10.5 mg/dL (8.4-10.2) H 02/17/20 07:57 Ionized Calcium 4.5 mg/dL (4.8-5.6) L 11/23/19 06:32 Phosphorus 4.20 mg/dL (2.5-4.5) D 11/28/19 08:59 Magnesium 2.30 mg/dL (1.7-2.3) 11/29/19 13:41 Total Bilirubin 0.40 mg/dL (0.1-1.2) 12/13/19 07:48 AST 27 units/L (5-40) 12/13/19 07:48 ALT 26 units/L (7-56) 12/13/19 07:48 Alkaline Phosphatase 316 units/L (35-129) H 12/13/19 07:48 Ammonia 42.0 umol/L (25-60) 11/29/19 13:41 Total Creatine Kinase 139 units/L (30-135) H 11/22/19 23:27 CK-MB (CK-2) 8.3 ng/mL (0.0-4.0) H 11/22/19 23:27 CK-MB (CK-2) Rel Index 5.9 (0-4) H 11/22/19 23:27 Troponin T < 0.010 ng/mL (0.00-0.029) 11/22/19 23:27 Total Protein 6.8 g/dL (6.3-8.2) 12/13/19 07:48 Albumin 2.4 g/dL (3.9-5) L 12/13/19 07:48 Albumin/Globulin Ratio 0.5 % 12/13/19 07:48 Lipase 18 units/L (13-60) 11/23/19 00:34 Procalcitonin 1.09 ng/mL (<0.15) 11/23/19 04:53 TSH 1.010 mlU/mL (0.270-4.200) 02/12/20 07:36 Free T4 1.08 ng/dL (0.76-1.46) 02/12/20 07:36 Urine Color Yellow (Yellow) 12/16/19 Unknown Urine Turbidity Slightly-cloudy (Clear) 12/16/19 Unknown Urine pH 5.0 (5.0-7.0) 12/16/19 Unknown Ur Specific Kinney 1.018 (1.003-1.030) 12/16/19 Unknown Urine Protein 30 mg/dl mg/dL (Negative) 12/16/19 Unknown Urine Glucose (UA) Neg mg/dL (Negative) 12/16/19 Unknown Urine Ketones Neg mg/dL (Negative) 12/16/19 Unknown Urine Blood Sm (Negative) 12/16/19 Unknown Urine Nitrite Neg (Negative) 12/16/19 Unknown Urine Bilirubin Neg (Negative) 12/16/19 Unknown Urine Urobilinogen < 2.0 mg/dL (<2.0) 12/16/19 Unknown Ur Leukocyte Esterase Neg (Negative) 12/16/19 Unknown Urine WBC (Auto) 6.0 /HPF (0.0-6.0) 12/16/19 Unknown Urine RBC (Auto) 9.0 /HPF (0.0-6.0) 12/16/19 Unknown U Epithel Cells (Auto) < 1.0 /HPF (0-13.0) 12/16/19 Unknown Urine Bacteria (Auto) 2+ /HPF (Negative) 11/22/19 23:17 Hyaline Casts 3 /LPF 12/16/19 Unknown Granular Casts 3 /LPF 12/16/19 Unknown Urine Mucus Few /HPF 12/16/19 Unknown Vancomycin Trough 33.8 ug/mL (5.0-20.0) H 12/21/19 08:56 Random Vancomycin 16.2 ug/mL (0-40.0) 12/24/19 04:31 Salicylates < 0.3 mg/dL (2.8-20.0) L 11/22/19 23:27 Urine Opiates Screen Presumptive negative 11/22/19 23:17 Urine Methadone Screen Presumptive negative 11/22/19 23:17 Acetaminophen < 5.0 ug/mL (10.0-30.0) L 11/22/19 23:27 Ur Barbiturates Screen Presumptive negative 11/22/19 23:17 Ur Phencyclidine Scrn Presumptive negative 11/22/19 23:17 Ur Amphetamines Screen Presumptive negative 11/22/19 23:17 U Benzodiazepines Scrn Presumptive negative 11/22/19 23:17 Urine Cocaine Screen Presumptive negative 11/22/19 23:17 U Marijuana (THC) Screen Presumptive negative 11/22/19 23:17 Drugs of Abuse Note Disclamer 11/22/19 23:17 Plasma/Serum Alcohol 0.08 % (0-0.07) H 11/22/19 23:27 Coronavirus (PCR) Negative (Negative) 02/05/20 07:50 Hepatitis A IgM Ab Non-reactive (NonReactive) 11/23/19 01:19 Hep Bs Antigen Non-reactive (Negative) 11/23/19 01:19 Hep B Core IgM Ab Non-reactive (NonReactive) 11/23/19 01:19 Hepatitis C Antibody Non-reactive (NonReactive) 11/23/19 01:19 Blood Type O POSITIVE 12/21/19 14:54 Antibody Screen Negative 12/21/19 14:54 Crossmatch See Detail 12/21/19 14:54 - Diagnostic Impressions Diagnostic Impressions: Echocardiogram 11/23/19 03:58 Transthoracic Echocardiogram Indication: Cardiac arrest BP: 131/89 HR: 115 Conclusions *The study quality is technically difficult. *Global left ventricular wall motion and contractility are within normal limits. *The estimated ejection fraction is 55-60%. *Abnormal left ventricular diastolic filling is observed, consistent with impaired relaxation. *There is no pericardial effusion. Findings Procedure Info: The study quality is technically difficult. The study was technically limited due to the patient's inability to lay in the left lateral decubitus position. Left Ventricle: The left ventricular chamber size is normal. There is no left ventricular hypertrophy. Global left ventricular wall motion and contractility are within normal limits. Global left ventricular systolic function is normal. The estimated ejection fraction is 55-60%. Abnormal left ventricular diastolic filling is observed, consistent with impaired relaxation. Left Atrium: The left atrial chamber size is normal. Aortic Valve: The aortic valve leaflets are mildly thickened. Mitral Valve: The mitral valve leaflets are mildly thickened. There is no evidence of mitral regurgitation. Tricuspid Valve: The tricuspid valve leaflets are normal. There is trace tricuspid regurgitation. The right ventricular systolic pressure is calculated at 33 mmHg. Pulmonic Valve: The pulmonic valve appears normal. Pericardium: The pericardium appears normal. There is no pericardial effusion. Aorta: The aorta appears normal. Venous: The inferior vena cava appears normal in size. Measurements Chambers 2D Name Value Normal Range IVSd (2D) 0.94 cm (0.6 - 1.1) LVPWd (2D) 0.81 cm (0.6 - 1.1) LVIDd (2D) 3.6 cm (3.7 - 5.6) LVIDs (2D) 2.27 cm (2 - 3.8) LV FS (2D) 36.93 % - EF Teichholz (2D) 67.76 % - Ao root diameter (2D) 3.03 cm (2 - 3.7) Volumes/Mass Name Value Normal Range LA ESV SP 4CH (A/L) 16.89 ml - LA ESV SP 4CH (MOD) 15.52 ml - Diastolic/Systolic Function Name Value Normal Range MV E-wave Vmax 0.55 m/sec - MV deceleration time 200.89 msec - MV A-wave Vmax 0.68 m/sec - MV E:A ratio 0.82 ratio - Aortic Valve Name Value Normal Range AV Vmax 1.1 m/sec - AV VTI 15.9 cm - AV peak gradient 4.86 mmHg - AV mean gradient 2.59 mmHg - LVOT diameter 2 cm - LVOT Vmax 1.03 m/sec - LVOT VTI 15.87 cm - LVOT peak gradient 4.24 mmHg - LVOT mean gradient 2.41 mmHg - SV LVOT 49.77 ml - JOSÉ MIGUEL (continuity Vmax) 2.93 cm2 - JOSÉ MIGUEL (continuity VTI) 3.13 cm2 - Tricuspid Valve Name Value Normal Range TR Vmax 2.74 m/sec - TR peak gradient 303 mmHg - RAP 3 mmHg - RVSP 33 mmHg - IVC diameter 1.77 cm (1.2 - 2.3) Pulmonic Valve/Qp:Qs Name Value Normal Range PV Vmax 0.77 m/sec - PV peak gradient 2.4 mmHg - PV acceleration time 114.18 msec - Echocardiogram Limited Views 12/17/19 14:53 Transthoracic Echocardiogram Indication: R/O Vegetations BP: 144/83 HR: 133 Conclusions *Global left ventricular systolic function is mildly decreased. *The estimated ejection fraction is 45-50%. *A trivial pericardial effusion is visualized. Findings Left Ventricle: The left ventricular chamber size is normal. Global left ventricular systolic function is mildly decreased. The estimated ejection fraction is 45-50%. Left Atrium: The left atrial chamber size is normal. Right Ventricle: The right ventricular cavity size is normal. Right Atrium: The right atrial cavity size is normal. Aortic Valve: The aortic valve is not well visualized. There is no evidence of aortic regurgitation. Mitral Valve: The mitral valve leaflets are mildly thickened. There is trace of mitral regurgitation. Tricuspid Valve: The tricuspid valve leaflets are mildly thickened. There is trace tricuspid regurgitation. The right ventricular systolic pressure is calculated at 29 mmHg. Pulmonic Valve: The pulmonic valve is not well visualized. There is no evidence of pulmonic regurgitation. Pericardium: A trivial pericardial effusion is visualized. Aorta: There is no dilatation of the ascending aorta. There is no dilatation of the aortic root. Venous: The inferior vena cava appears normal in size. There is a greater than 50% respiratory change in the inferior vena cava dimension. Measurements Chambers 2D Name Value Normal Range IVSd (2D) 0.83 cm (0.6 - 1.1) LVPWd (2D) 0.98 cm (0.6 - 1.1) LVIDd (2D) 3.71 cm (3.7 - 5.6) LVIDs (2D) 2.93 cm (2 - 3.8) LV FS (2D) 21.12 % - EF Teichholz (2D) 43.71 % - Ao root diameter (2D) 3.02 cm (2 - 3.7) Volumes/Mass Name Value Normal Range LA ESV SP 4CH (A/L) 36.8 ml - LA ESV SP 2CH (A/L) 45.89 ml - LA ESV BP (A/L) 42.35 ml - LA ESV BP (A/L) index 26.63 ml/m2 - LA ESV SP 4CH (MOD) 34.42 ml - LA ESV SP 2CH (MOD) 44.21 ml - LA ESV BP (MOD) 39.82 ml - LA ESV BP (MOD) index 25.05 ml/m2 - Aortic Valve Name Value Normal Range LVOT diameter 1.63 cm - Tricuspid Valve Name Value Normal Range TR Vmax 2.56 m/sec - TR peak gradient 26 mmHg - RAP 3 mmHg - RVSP 29 mmHg - IVC diameter 1.83 cm (1.2 - 2.3) Dela Cruz/IV: Voiding Method Incontinent IV Catheter Type [Forearm] Peripheral IV IV Catheter Type [Left Forearm INT / Saline Lock ] IV Catheter Type [Right INT / Saline Lock Antecubital] IV Catheter Type [Right Hand] Peripheral IV IV Catheter Type [Right Wrist] Peripheral IV IV Catheter Type [Left Wrist] Peripheral IV IV Catheter Type [Left Peripheral IV Antecubital] IV Catheter Type [Right INT / Saline Lock Forearm] IV Catheter Type [Left Hand] Peripheral IV Active Medications - Current Medications Current Medications: Generic Name Dose Route Start Last Admin Trade Name Freq PRN Reason Stop Dose Admin Acetaminophen 650 mg 12/06/19 10:25 02/24/20 21:11 Tylenol FEEDTUBE 650 mg Q6H PRN Administration TEMP >/=100.3 Acetylcysteine 200 mg 02/16/20 20:00 02/27/20 08:51 Mucomyst Inhalation INHALATION Not Given Q12HRT LUCHO Alprazolam 1 mg 02/21/20 18:24 02/26/20 22:43 Xanax PO 1 mg Q8H PRN Administration Anxiety Lipase/Protease/Amylase 1 each 11/23/19 11:[address] 10,500 Unit FEEDTUBE PRN PRN Use w/ sod bicarb for FT Bisacodyl 10 mg 02/06/20 13:57 Dulcolax [place] QDAY PRN Constipation unrelieved by MOM Docusate Sodium 100 mg 02/18/20 22:00 02/27/20 09:23 Colace FEEDTUBE 100 mg BID LUCHO Administration Glycopyrrolate 2 mg 12/31/19 20:00 02/27/20 09:44 Robinul PO 2 mg TID LUCHO Administration Haloperidol Lactate 2 mg 02/21/20 10:51 02/23/20 21:05 Haldol FEEDTUBE 2 mg Q6H PRN Administration Agitation Hydralazine HCl 10 mg 11/24/19 00:45 12/18/19 13:25 Apresoline IV 10 mg Q6H PRN Administration SBP > 160 Hydroxyzine Pamoate 25 mg 12/06/19 10:00 02/27/20 09:37 Vistaril PO 25 mg BID LUCHO Administration Lansoprazole 30 mg 11/27/19 10:00 02/27/20 09:40 Prevacid Solutab FEEDTUBE 30 mg QDAY LUCHO Administration Levalbuterol HCl 0.63 mg 02/17/20 00:00 02/27/20 08:52 Xopenex IH 0.63 mg Q8HRT LUCHO Administration Levetiracetam 500 mg 11/29/19 10:00 02/27/20 09:23 Keppra PO 500 mg BID LUCHO Administration Metoprolol Tartrate 12.5 mg 02/23/20 22:00 02/27/20 09:45 Metoprolol PO 12.5 mg BID LUCHO Administration Mirtazapine 30 mg 12/06/19 10:00 02/27/20 09:37 Remeron PO 30 mg DAILY LUCHO Administration Nicotine 21 mg 02/16/20 13:00 02/27/20 09:23 Habitrol TD 21 mg QDAY LUCHO Administration Ondansetron HCl 4 mg 12/10/19 07:53 02/25/20 02:51 Zofran IV 4 mg Q4H PRN Administration Nausea And Vomiting Polyethylene Glycol 17 gm 02/06/20 13:57 Miralax 3350 PO QDAY PRN Constipation Quetiapine Fumarate 100 mg 01/09/20 21:41 02/26/20 21:36 Seroquel FEEDTUBE 100 mg QHS LUCHO Administration Scopolamine 1 each 02/08/20 15:00 02/26/20 10:21 Transderm-Scop TD 1 each Q3D LUCHO Administration Sertraline HCl 25 mg 01/01/20 10:00 02/27/20 09:36 Zoloft PO 25 mg QDAY LUCHO Administration Simple Syrup 15 ml 11/23/19 11:50 Simple Syrup FEEDTUBE PRN PRN Hypoglycemia BG<70 Simple Syrup 30 ml 11/23/19 11:50 Simple Syrup FEEDTUBE PRN PRN Hypoglycemia Sodium Bicarbonate 325 mg 11/23/19 11:50 Sodium Bicarbonate FEEDTUBE PRN PRN For Clogged Feeding Tube Nutrition/Malnutrition Assess - Dietary Evaluation Nutrition/Malnutrition Findings: Nutrition Notes Start: 11/23/19 11:29 Freq: Status: Active Protocol: Document 02/26/20 14:17 LM (Rec: 02/26/20 14:32 LM [email or web address]) Nutrition Notes Initial or Follow up Reassessment Current Diagnosis Hypertension Other Pertinent Diagnosis Cardaic arrest, ETOH dependence, UTI Current Diet Jevity 1.2 at 60ml/hr Labs/Tests Reviewed Pertinent Medications Reviewed Height 5 ft 6 in Weight 51 kg [place] Body Weight (kg) 59.09 BMI 18.1 Subjective/Other Information Per RN notes, TF is running at goal and pt is tolerating. Percent of energy/protein needs met: 89%/100% Burn Absent Trauma Absent GI Symptoms None Current % PO Negligible Interpretation of Weight Loss (severe) >2% in 1 week Muscle Mass Mild Depletion (non-severe) #2 Nutrition Diagnosis Malnutrition Diagnosis Progress(for reassessment Continues documentation) #1 Nutrition Diagnosis Inadequate oral intake Diagnosis Progress(for reassessment Continues documentation) Is patient on ventilator? No Is Patient Ambulatory and/or Out of Bed No REE-([facility]-confined to bed) 1356.672 Kcal/Kg value to use for calculation 38 Approximate Energy Requirements Using 1938 kcal/Kg Calculation Used for Recommendations Kcal/kg Additional Notes Protein: 60-75g (1.2-1.5g/kg) Fluid: 1 ml/kcal Nutrition Intervention Change Diet Order: Continue TF Nutrition Support: Change to Jevity 1.2 at 60ml/ hr Flush 100ml q4h Kcal 1,728 Protein (gm) 80 Fluid (mL) 1,162 Goal #1 TF tolerance Goal #2 Meet at least 80% of energy and protein needs via TF Goal #3 Wt gain/maintenacne Anticipated Discharge Needs: TF Follow-Up By: 02/29/20 Additional Comments F/U for TF tolerance, wt
--- NOTE | 2020-02-27 13:04 | Progress Note ---
Assessment and Plan Patient awake. Patient is resting better to day..Patient S/P trach. Patient is on T tube, FIO2 28%. O2 saturation 100%. No acute respiratory distress. Wound around trach tube. Recommend cleaning and tracheostomy care. Dressing applied.Recommend frequent respiratory suctioning. Continue bronchodilators.Patient afebrile and has mild leukocytosis. - Patient Problems (1) Acute respiratory failure Current Visit: Yes Status: Acute Qualifiers: Respiratory failure complication: hypoxia Qualified Code(s): J96.01 - Acute respiratory failure with hypoxia Plan to address problem: S/P Tracheostomy. Presently on T tube, FIO2 28% and. O2 saturation 100%. Recommend albuterol/atrovent aerosol treatments q 6 hours. Continue Mucomist. Respiratory suctioning. Trach care. Mobility protocol. (2) Alcohol abuse Current Visit: Yes Status: Acute Plan to address problem: Management as per primary care. (3) Cardiac arrest with successful resuscitation Current Visit: Yes Status: Acute Plan to address problem: Patient successfully resucitated. Alert, awake. Resting on T tube. (4) Increased ammonia level Current Visit: Yes Status: Acute Plan to address problem: Management as per primary care. (5) Seizure disorder Current Visit: Yes Status: Acute Plan to address problem: Management as per primary care and neurology. (6) HTN (hypertension) Current Visit: No Status: Acute Plan to address problem: Management as per primary care. Subjective Date of service: 02/27/20 Principal diagnosis: Ac cardiopulmonary arrest; Ac hypoxemic resp failure; Acute encephalopathy Interval history: Patient awake. Patient is resting better to day..Patient S/P trach. Patient is on T tube, FIO2 28%. O2 saturation 100%. No acute respiratory distress. Wound around trach tube. Recommend cleaning and tracheostomy care. Dressing applied.Recommend frequent respiratory suctioning. Continue bronchodilators.Patient afebrile and has mild leukocytosis. Objective Vital Signs - 12hr 02/27/20 02/27/20 02/27/20 07:35 09:04 09:45 Temperature 98.4 F Pulse Rate 95 H 95 H Pulse Rate [ 93 H Anterior Bilateral Throughout] Respiratory 20 Rate Respiratory 20 Rate [Anterior Bilateral Throughout] Blood Pressure 126/79 126/79 O2 Sat by Pulse 97 Oximetry O2 Sat by Pulse 99 Oximetry [ Assessment] 02/27/20 11:43 Temperature 97.9 F Pulse Rate 109 H Pulse Rate [ Anterior Bilateral Throughout] Respiratory 22 Rate Respiratory Rate [Anterior Bilateral Throughout] Blood Pressure 151/89 O2 Sat by Pulse 100 Oximetry O2 Sat by Pulse Oximetry [ Assessment] Constitutional: no acute distress, alert, agitated, appears uncomfortable, other (Confused and agitating.) Eyes: non-icteric ENT: oropharynx moist, other (s/p trach) Neck: supple, no lymphadenopathy, no JVD Effort: normal Ascultation: Bilateral: diminished breath sounds, rhonchi Percussion: Bilateral: not dull Cardiovascular: regular rate and rhythm (tachycardia), other (S1,S2) Gastrointestinal: normoactive bowel sounds, soft, non-tender, non-distended Integumentary: normal Extremities: no cyanosis, no edema, pulses normal, no ischemia or petechiae Neurologic: non-focal exam, pupils equal and round, unable to assess Psychiatric: anxious, other (Agitated.) CBC and BMP: 02/17/20 07:57 02/17/20 07:57 ABG, PT/INR, D-dimer: ABG ABG pH 7.429 pH Units (7.350-7.450) 01/09/20 08:51 ABG pCO2 39.1 mm Hg 01/09/20 08:51 ABG pO2 94.3 mm Hg (80.0-90.0) H 01/09/20 08:51 ABG O2 Saturation 97.4 % (95.0-99.0) 01/09/20 08:51 PT/INR, D-dimer PT 17.0 Sec. (12.2-14.9) H 11/23/19 03:47 INR 1.36 (0.87-1.13) H 11/23/19 03:47 Abnormal lab findings: Abnormal Labs 11/22/19 11/22/19 11/22/19 23:17 23:18 23:27 WBC 21.2 H RBC 3.59 L Hgb 9.8 L Hct MCH 27 L RDW 18.6 H Plt Count 454 H Lymph % (Auto) [place] % (Auto) [place] # Baso # Seg Neutrophils % Seg Neuts % (Manual) 86.0 H Lymphocytes % (Manual) 9.0 L Monocytes % (Manual) Seg Neutrophils # Seg Neutrophils # Man 18.2 H Lymphocytes # (Manual) Monocytes # (Manual) 1.1 H Eosinophils # (Manual) Basophils # (Manual) PT INR APTT ABG pH ABG pO2 ABG HCO3 ABG O2 Saturation ABG Base Excess ABG Hemoglobin Oxyhemoglobin Sodium Potassium Chloride Carbon Dioxide BUN Creatinine Glucose POC Glucose 53 L Lactic Acid Calcium Ionized Calcium Phosphorus Magnesium Total Bilirubin AST ALT Alkaline Phosphatase Ammonia Total Creatine Kinase CK-MB (CK-2) CK-MB (CK-2) Rel Index Total Protein Albumin Urine WBC (Auto) 40.0 H Vancomycin Trough Salicylates Acetaminophen Plasma/Serum Alcohol Crossmatch 11/22/19 11/22/19 11/22/19 23:27 23:27 23:27 WBC RBC Hgb Hct MCH RDW Plt Count Lymph % (Auto) [place] % (Auto) [place] # Baso # Seg Neutrophils % Seg Neuts % (Manual) Lymphocytes % (Manual) Monocytes % (Manual) Seg Neutrophils # Seg Neutrophils # Man Lymphocytes # (Manual) Monocytes # (Manual) Eosinophils # (Manual) Basophils # (Manual) PT INR APTT ABG pH ABG pO2 ABG HCO3 ABG O2 Saturation ABG Base Excess ABG Hemoglobin Oxyhemoglobin Sodium Potassium 2.4 L* Chloride 85.1 L Carbon Dioxide 19 L BUN Creatinine 0.5 L Glucose 261 H POC Glucose Lactic Acid Calcium Ionized Calcium Phosphorus Magnesium Total Bilirubin AST 609 H ALT 152 H Alkaline Phosphatase 160 H Ammonia 117.0 H Total Creatine Kinase 139 H CK-MB (CK-2) 8.3 H CK-MB (CK-2) Rel Index 5.9 H Total Protein Albumin 3.6 L Urine WBC (Auto) Vancomycin Trough Salicylates < 0.3 L Acetaminophen Plasma/Serum Alcohol Crossmatch 11/22/19 11/22/19 11/23/19 23:27 23:27 01:10 WBC RBC Hgb Hct MCH RDW Plt Count Lymph % (Auto) [place] % (Auto) [place] # Baso # Seg Neutrophils % Seg Neuts % (Manual) Lymphocytes % (Manual) Monocytes % (Manual) Seg Neutrophils # Seg Neutrophils # Man Lymphocytes # (Manual) Monocytes # (Manual) Eosinophils # (Manual) Basophils # (Manual) PT INR APTT ABG pH 7.273 L ABG pO2 209.7 H ABG HCO3 ABG O2 Saturation 99.2 H ABG Base Excess -3.9 L ABG Hemoglobin 10.6 L Oxyhemoglobin 93.9 L Sodium Potassium Chloride Carbon Dioxide BUN Creatinine Glucose POC Glucose Lactic Acid Calcium Ionized Calcium Phosphorus Magnesium Total Bilirubin AST ALT Alkaline Phosphatase Ammonia Total Creatine Kinase CK-MB (CK-2) CK-MB (CK-2) Rel Index Total Protein Albumin Urine WBC (Auto) Vancomycin Trough Salicylates Acetaminophen < 5.0 L Plasma/Serum Alcohol 0.08 H Crossmatch 11/23/19 11/23/19 11/23/19 01:19 01:19 03:47 WBC RBC Hgb Hct MCH RDW Plt Count Lymph % (Auto) [place] % (Auto) [place] # Baso # Seg Neutrophils % Seg Neuts % (Manual) Lymphocytes % (Manual) Monocytes % (Manual) Seg Neutrophils # Seg Neutrophils # Man Lymphocytes # (Manual) Monocytes # (Manual) Eosinophils # (Manual) Basophils # (Manual) PT 16.3 H INR 1.29 H APTT ABG pH ABG pO2 ABG HCO3 ABG O2 Saturation ABG Base Excess ABG Hemoglobin Oxyhemoglobin Sodium Potassium Chloride Carbon Dioxide BUN Creatinine Glucose POC Glucose Lactic Acid 2.10 H* 5.00 H* Calcium Ionized Calcium Phosphorus Magnesium Total Bilirubin AST ALT Alkaline Phosphatase Ammonia Total Creatine Kinase CK-MB (CK-2) CK-MB (CK-2) Rel Index Total Protein Albumin Urine WBC (Auto) Vancomycin Trough Salicylates Acetaminophen Plasma/Serum Alcohol Crossmatch 11/23/19 11/23/19 11/23/19 03:47 03:47 04:53 WBC RBC Hgb 9.4 L Hct MCH RDW Plt Count Lymph % (Auto) [place] % (Auto) [place] # Baso # Seg Neutrophils % Seg Neuts % (Manual) Lymphocytes % (Manual) Monocytes % (Manual) Seg Neutrophils # Seg Neutrophils # Man Lymphocytes # (Manual) Monocytes # (Manual) Eosinophils # (Manual) Basophils # (Manual) PT 17.0 H INR 1.36 H APTT 128.2 H* ABG pH ABG pO2 ABG HCO3 ABG O2 Saturation ABG Base Excess ABG Hemoglobin Oxyhemoglobin Sodium Potassium Chloride Carbon Dioxide 18 L BUN Creatinine 0.5 L Glucose 105 H POC Glucose Lactic Acid Calcium 8.3 L Ionized Calcium Phosphorus 2.40 L Magnesium Total Bilirubin 1.30 H AST 761 H ALT 158 H Alkaline Phosphatase 143 H Ammonia Total Creatine Kinase CK-MB (CK-2) CK-MB (CK-2) Rel Index Total Protein Albumin 2.8 L Urine WBC (Auto) Vancomycin Trough Salicylates Acetaminophen Plasma/Serum Alcohol Crossmatch 11/23/19 11/23/19 11/23/19 05:12 06:32 06:32 WBC 16.8 H RBC 3.31 L Hgb 8.9 L Hct 28.7 L MCH 27 L RDW 18.6 H Plt Count Lymph % (Auto) [place] % (Auto) [place] # Baso # Seg Neutrophils % Seg Neuts % (Manual) 94.0 H Lymphocytes % (Manual) 1.0 L Monocytes % (Manual) Seg Neutrophils # Seg Neutrophils # Man 15.8 H Lymphocytes # (Manual) 0.2 L Monocytes # (Manual) Eosinophils # (Manual) Basophils # (Manual) PT INR APTT ABG pH ABG pO2 ABG HCO3 ABG O2 Saturation ABG Base Excess -3.2 L ABG Hemoglobin 9.0 L Oxyhemoglobin 93.6 L Sodium Potassium Chloride Carbon Dioxide BUN Creatinine Glucose POC Glucose Lactic Acid Calcium Ionized Calcium 4.5 L Phosphorus Magnesium Total Bilirubin AST ALT Alkaline Phosphatase Ammonia Total Creatine Kinase CK-MB (CK-2) CK-MB (CK-2) Rel Index Total Protein Albumin Urine WBC (Auto) Vancomycin Trough Salicylates Acetaminophen Plasma/Serum Alcohol Crossmatch 11/23/19 11/24/19 11/24/19 06:32 04:35 04:35 WBC RBC Hgb Hct MCH RDW Plt Count Lymph % (Auto) [place] % (Auto) [place] # Baso # Seg Neutrophils % Seg Neuts % (Manual) Lymphocytes % (Manual) Monocytes % (Manual) Seg Neutrophils # Seg Neutrophils # Man Lymphocytes # (Manual) Monocytes # (Manual) Eosinophils # (Manual) Basophils # (Manual) PT INR APTT ABG pH ABG pO2 ABG HCO3 ABG O2 Saturation ABG Base Excess ABG Hemoglobin Oxyhemoglobin Sodium Potassium Chloride Carbon Dioxide BUN Creatinine Glucose POC Glucose Lactic Acid 3.30 H* Calcium Ionized Calcium Phosphorus Magnesium 1.40 L Total Bilirubin AST ALT Alkaline Phosphatase Ammonia 98.0 H Total Creatine Kinase CK-MB (CK-2) CK-MB (CK-2) Rel Index Total Protein Albumin Urine WBC (Auto) Vancomycin Trough Salicylates Acetaminophen Plasma/Serum Alcohol Crossmatch 11/24/19 11/25/19 11/25/19 05:22 04:34 05:05 WBC 17.3 H RBC 2.88 L Hgb 7.8 L Hct 24.6 L MCH 27 L RDW 18.5 H Plt Count Lymph % (Auto) 7.7 L [place] % (Auto) 9.7 H [place] # 1.7 H Baso # Seg Neutrophils % 82.2 H Seg Neuts % (Manual) Lymphocytes % (Manual) Monocytes % (Manual) Seg Neutrophils # 14.2 H Seg Neutrophils # Man Lymphocytes # (Manual) Monocytes # (Manual) Eosinophils # (Manual) Basophils # (Manual) PT INR APTT ABG pH 7.475 H ABG pO2 ABG HCO3 29.4 H 32.3 H ABG O2 Saturation ABG Base Excess 5.4 H 6.9 H ABG Hemoglobin 9.0 L 10.6 L Oxyhemoglobin 94.3 L Sodium Potassium Chloride Carbon Dioxide BUN Creatinine Glucose POC Glucose Lactic Acid Calcium Ionized Calcium Phosphorus Magnesium Total Bilirubin AST ALT Alkaline Phosphatase Ammonia Total Creatine Kinase CK-MB (CK-2) CK-MB (CK-2) Rel Index Total Protein Albumin Urine WBC (Auto) Vancomycin Trough Salicylates Acetaminophen Plasma/Serum Alcohol Crossmatch 11/25/19 11/25/19 11/26/19 05:05 22:46 03:31 WBC RBC Hgb Hct MCH RDW Plt Count Lymph % (Auto) [place] % (Auto) [place] # Baso # Seg Neutrophils % Seg Neuts % (Manual) Lymphocytes % (Manual) Monocytes % (Manual) Seg Neutrophils # Seg Neutrophils # Man Lymphocytes # (Manual) Monocytes # (Manual) Eosinophils # (Manual) Basophils # (Manual) PT INR APTT ABG pH 7.459 H ABG pO2 ABG HCO3 34.2 H ABG O2 Saturation ABG Base Excess 9.4 H ABG Hemoglobin 7.6 L Oxyhemoglobin 94.8 L Sodium 152 H D 147 H Potassium 2.3 L* D 2.8 L* D Chloride 107.8 H Carbon Dioxide 31 H D 33 H BUN Creatinine 0.6 L 0.6 L Glucose 148 H 177 H POC Glucose Lactic Acid Calcium Ionized Calcium Phosphorus Magnesium Total Bilirubin AST 105 H ALT 71 H Alkaline Phosphatase 155 H Ammonia Total Creatine Kinase CK-MB (CK-2) CK-MB (CK-2) Rel Index Total Protein 5.2 L D Albumin 2.9 L Urine WBC (Auto) Vancomycin Trough Salicylates Acetaminophen Plasma/Serum Alcohol Crossmatch 11/26/19 11/26/1911/26/20 08:24 08:24 04:20 WBC 12.0 H RBC 3.00 L Hgb 8.0 L 9.3 L Hct 25.9 L 29.7 L MCH 27 L RDW 18.5 H Plt Count Lymph % (Auto) [place] % (Auto) [place] # Baso # Seg Neutrophils % Seg Neuts % (Manual) 89.0 H Lymphocytes % (Manual) 4.0 L Monocytes % (Manual) Seg Neutrophils # Seg Neutrophils # Man 10.7 H Lymphocytes # (Manual) 0.5 L Monocytes # (Manual) Eosinophils # (Manual) Basophils # (Manual) PT INR APTT ABG pH ABG pO2 ABG HCO3 ABG O2 Saturation ABG Base Excess ABG Hemoglobin Oxyhemoglobin Sodium 146 H Potassium 3.4 L D Chloride Carbon Dioxide BUN Creatinine 0.5 L Glucose 165 H POC Glucose Lactic Acid Calcium Ionized Calcium Phosphorus Magnesium Total Bilirubin AST 57 H ALT Alkaline Phosphatase 166 H Ammonia Total Creatine Kinase CK-MB (CK-2) CK-MB (CK-2) Rel Index Total Protein Albumin 2.9 L Urine WBC (Auto) Vancomycin Trough Salicylates Acetaminophen Plasma/Serum Alcohol Crossmatch 11/27/19 11/27/19 11/27/19 04:28 04:28 04:42 WBC RBC Hgb Hct MCH RDW Plt Count Lymph % (Auto) [place] % (Auto) [place] # Baso # Seg Neutrophils % Seg Neuts % (Manual) Lymphocytes % (Manual) Monocytes % (Manual) Seg Neutrophils # Seg Neutrophils # Man Lymphocytes # (Manual) Monocytes # (Manual) Eosinophils # (Manual) Basophils # (Manual) PT INR APTT ABG pH 7.470 H ABG pO2 74.0 L ABG HCO3 33.8 H ABG O2 Saturation ABG Base Excess 9.1 H ABG Hemoglobin 8.7 L Oxyhemoglobin 94.7 L Sodium 146 H Potassium 2.9 L* Chloride Carbon Dioxide BUN 25 H Creatinine Glucose 213 H POC Glucose Lactic Acid Calcium Ionized Calcium Phosphorus 1.00 L Magnesium Total Bilirubin AST ALT Alkaline Phosphatase Ammonia Total Creatine Kinase CK-MB (CK-2) CK-MB (CK-2) Rel Index Total Protein Albumin Urine WBC (Auto) Vancomycin Trough Salicylates Acetaminophen Plasma/Serum Alcohol Crossmatch 11/27/19 11/27/19 11/27/19 05:37 12:20 15:46 WBC RBC Hgb Hct MCH RDW Plt Count Lymph % (Auto) [place] % (Auto) [place] # Baso # Seg Neutrophils % Seg Neuts % (Manual) Lymphocytes % (Manual) Monocytes % (Manual) Seg Neutrophils # Seg Neutrophils # Man Lymphocytes # (Manual) Monocytes # (Manual) Eosinophils # (Manual) Basophils # (Manual) PT INR APTT ABG pH ABG pO2 ABG HCO3 ABG O2 Saturation ABG Base Excess ABG Hemoglobin Oxyhemoglobin Sodium 146 H Potassium 3.5 L D Chloride Carbon Dioxide BUN 24 H Creatinine 0.6 L Glucose 187 H POC Glucose 117 H 220 H Lactic Acid Calcium Ionized Calcium Phosphorus Magnesium Total Bilirubin AST ALT Alkaline Phosphatase Ammonia Total Creatine Kinase CK-MB (CK-2) CK-MB (CK-2) Rel Index Total Protein Albumin Urine WBC (Auto) Vancomycin Trough Salicylates Acetaminophen Plasma/Serum Alcohol Crossmatch 11/27/19 11/28/19 11/28/19 17:28 05:00 05:02 WBC RBC Hgb Hct MCH RDW Plt Count Lymph % (Auto) [place] % (Auto) [place] # Baso # Seg Neutrophils % Seg Neuts % (Manual) Lymphocytes % (Manual) Monocytes % (Manual) Seg Neutrophils # Seg Neutrophils # Man Lymphocytes # (Manual) Monocytes # (Manual) Eosinophils # (Manual) Basophils # (Manual) PT INR APTT ABG pH ABG pO2 72.4 L ABG HCO3 33.6 H ABG O2 Saturation 94.1 L ABG Base Excess 7.3 H ABG Hemoglobin Oxyhemoglobin 91.8 L Sodium 146 H Potassium 3.3 L Chloride Carbon Dioxide BUN 25 H Creatinine 0.6 L Glucose 176 H POC Glucose 198 H Lactic Acid Calcium Ionized Calcium Phosphorus Magnesium Total Bilirubin AST ALT Alkaline Phosphatase Ammonia Total Creatine Kinase CK-MB (CK-2) CK-MB (CK-2) Rel Index Total Protein Albumin Urine WBC (Auto) Vancomycin Trough Salicylates Acetaminophen Plasma/Serum Alcohol Crossmatch 11/28/19 11/28/19 11/29/19 05:02 18:55 10:43 WBC 15.2 H 19.0 H RBC 3.06 L 3.01 L Hgb 8.3 L 8.3 L Hct 27.0 L 26.4 L MCH 27 L RDW 19.0 H 19.7 H Plt Count 479 H 611 H Lymph % (Auto) [place] % (Auto) [place] # Baso # Seg Neutrophils % Seg Neuts % (Manual) 92.0 H Lymphocytes % (Manual) 2.0 L Monocytes % (Manual) Seg Neutrophils # Seg Neutrophils # Man 14.0 H Lymphocytes # (Manual) 0.3 L Monocytes # (Manual) Eosinophils # (Manual) Basophils # (Manual) PT INR APTT ABG pH ABG pO2 ABG HCO3 ABG O2 Saturation ABG Base Excess ABG Hemoglobin Oxyhemoglobin Sodium Potassium Chloride Carbon Dioxide BUN Creatinine Glucose POC Glucose 138 H Lactic Acid Calcium Ionized Calcium Phosphorus Magnesium Total Bilirubin AST ALT Alkaline Phosphatase Ammonia Total Creatine Kinase CK-MB (CK-2) CK-MB (CK-2) Rel Index Total Protein Albumin Urine WBC (Auto) Vancomycin Trough Salicylates Acetaminophen Plasma/Serum Alcohol Crossmatch 11/29/19 11/29/19 11/29/19 10:43 12:27 19:25 WBC RBC Hgb Hct MCH RDW Plt Count Lymph % (Auto) [place] % (Auto) [place] # Baso # Seg Neutrophils % Seg Neuts % (Manual) Lymphocytes % (Manual) Monocytes % (Manual) Seg Neutrophils # Seg Neutrophils # Man Lymphocytes # (Manual) Monocytes # (Manual) Eosinophils # (Manual) Basophils # (Manual) PT INR APTT ABG pH ABG pO2 ABG HCO3 ABG O2 Saturation ABG Base Excess ABG Hemoglobin Oxyhemoglobin Sodium Potassium 2.8 L* Chloride Carbon Dioxide BUN 20 H Creatinine 0.5 L Glucose 121 H POC Glucose 128 H 120 H Lactic Acid Calcium Ionized Calcium Phosphorus Magnesium Total Bilirubin AST ALT Alkaline Phosphatase Ammonia Total Creatine Kinase CK-MB (CK-2) CK-MB (CK-2) Rel Index Total Protein Albumin Urine WBC (Auto) Vancomycin Trough Salicylates Acetaminophen Plasma/Serum Alcohol Crossmatch 11/29/19 11/30/19 11/30/19 23:46 04:10 05:02 WBC RBC Hgb Hct MCH RDW Plt Count Lymph % (Auto) [place] % (Auto) [place] # Baso # Seg Neutrophils % Seg Neuts % (Manual) Lymphocytes % (Manual) Monocytes % (Manual) Seg Neutrophils # Seg Neutrophils # Man Lymphocytes # (Manual) Monocytes # (Manual) Eosinophils # (Manual) Basophils # (Manual) PT INR APTT ABG pH ABG pO2 76.3 L ABG HCO3 32.5 H ABG O2 Saturation ABG Base Excess 6.9 H ABG Hemoglobin 8.0 L Oxyhemoglobin 92.6 L Sodium Potassium Chloride Carbon Dioxide BUN Creatinine Glucose POC Glucose 116 H 128 H Lactic Acid Calcium Ionized Calcium Phosphorus Magnesium Total Bilirubin AST ALT Alkaline Phosphatase Ammonia Total Creatine Kinase CK-MB (CK-2) CK-MB (CK-2) Rel Index Total Protein Albumin Urine WBC (Auto) Vancomycin Trough Salicylates Acetaminophen Plasma/Serum Alcohol Crossmatch 11/30/19 11/30/19 11/30/19 05:25 05:25 12:59 WBC 18.4 H RBC 3.10 L Hgb 8.5 L Hct 27.5 L MCH 27 L RDW 20.9 H Plt Count 691 H Lymph % (Auto) 7.1 L [place] % (Auto) 7.7 H [place] # 1.4 H Baso # Seg Neutrophils % 83.4 H Seg Neuts % (Manual) Lymphocytes % (Manual) Monocytes % (Manual) Seg Neutrophils # 15.4 H Seg Neutrophils # Man Lymphocytes # (Manual) Monocytes # (Manual) Eosinophils # (Manual) Basophils # (Manual) PT INR APTT ABG pH ABG pO2 ABG HCO3 ABG O2 Saturation ABG Base Excess ABG Hemoglobin Oxyhemoglobin Sodium 146 H Potassium Chloride 107.2 H Carbon Dioxide BUN Creatinine 0.5 L Glucose 132 H POC Glucose 124 H Lactic Acid Calcium Ionized Calcium Phosphorus Magnesium Total Bilirubin AST 246 H ALT 274 H Alkaline Phosphatase 203 H Ammonia Total Creatine Kinase CK-MB (CK-2) CK-MB (CK-2) Rel Index Total Protein 5.4 L Albumin 2.9 L Urine WBC (Auto) Vancomycin Trough Salicylates Acetaminophen Plasma/Serum Alcohol Crossmatch 11/30/19 12/01/19 12/01/19 17:53 00:05 05:10 WBC RBC Hgb Hct MCH RDW Plt Count Lymph % (Auto) [place] % (Auto) [place] # Baso # Seg Neutrophils % Seg Neuts % (Manual) Lymphocytes % (Manual) Monocytes % (Manual) Seg Neutrophils # Seg Neutrophils # Man Lymphocytes # (Manual) Monocytes # (Manual) Eosinophils # (Manual) Basophils # (Manual) PT INR APTT ABG pH ABG pO2 ABG HCO3 ABG O2 Saturation ABG Base Excess ABG Hemoglobin Oxyhemoglobin Sodium Potassium Chloride Carbon Dioxide BUN Creatinine Glucose POC Glucose 113 H 143 H 145 H Lactic Acid Calcium Ionized Calcium Phosphorus Magnesium Total Bilirubin AST ALT Alkaline Phosphatase Ammonia Total Creatine Kinase CK-MB (CK-2) CK-MB (CK-2) Rel Index Total Protein Albumin Urine WBC (Auto) Vancomycin Trough Salicylates Acetaminophen Plasma/Serum Alcohol Crossmatch 12/01/19 12/01/19 12/01/19 05:33 08:23 08:23 WBC 22.7 H RBC 2.88 L Hgb 7.9 L Hct 25.2 L MCH 27 L RDW 21.0 H Plt Count 732 H Lymph % (Auto) [place] % (Auto) [place] # Baso # Seg Neutrophils % Seg Neuts % (Manual) 91.0 H Lymphocytes % (Manual) 3.0 L Monocytes % (Manual) Seg Neutrophils # Seg Neutrophils # Man 20.7 H Lymphocytes # (Manual) 0.7 L Monocytes # (Manual) 1.1 H Eosinophils # (Manual) Basophils # (Manual) PT INR APTT ABG pH ABG pO2 68.6 L ABG HCO3 34.1 H ABG O2 Saturation ABG Base Excess 9.0 H ABG Hemoglobin 6.5 L Oxyhemoglobin 94.7 L Sodium Potassium Chloride Carbon Dioxide BUN Creatinine 0.5 L Glucose 125 H POC Glucose Lactic Acid Calcium Ionized Calcium Phosphorus Magnesium Total Bilirubin AST ALT Alkaline Phosphatase Ammonia Total Creatine Kinase CK-MB (CK-2) CK-MB (CK-2) Rel Index Total Protein Albumin Urine WBC (Auto) Vancomycin Trough Salicylates Acetaminophen Plasma/Serum Alcohol Crossmatch 12/01/19 12/01/19 12/01/19 13:21 17:54 20:59 WBC RBC Hgb Hct MCH RDW Plt Count Lymph % (Auto) [place] % (Auto) [place] # Baso # Seg Neutrophils % Seg Neuts % (Manual) Lymphocytes % (Manual) Monocytes % (Manual) Seg Neutrophils # Seg Neutrophils # Man Lymphocytes # (Manual) Monocytes # (Manual) Eosinophils # (Manual) Basophils # (Manual) PT INR APTT ABG pH ABG pO2 78.3 L ABG HCO3 33.8 H ABG O2 Saturation 94.9 L ABG Base Excess 7.9 H ABG Hemoglobin 11.5 L Oxyhemoglobin 92.3 L Sodium Potassium Chloride Carbon Dioxide BUN Creatinine Glucose POC Glucose 111 H 115 H Lactic Acid Calcium Ionized Calcium Phosphorus Magnesium Total Bilirubin AST ALT Alkaline Phosphatase Ammonia Total Creatine Kinase CK-MB (CK-2) CK-MB (CK-2) Rel Index Total Protein Albumin Urine WBC (Auto) Vancomycin Trough Salicylates Acetaminophen Plasma/Serum Alcohol Crossmatch 12/02/19 12/03/19 12/04/19 12:55 20:00 04:26 WBC 15.2 H RBC 2.69 L Hgb 7.4 L Hct 23.6 L MCH 27 L RDW 19.9 H Plt Count 838 H Lymph % (Auto) [place] % (Auto) [place] # Baso # Seg Neutrophils % Seg Neuts % (Manual) Lymphocytes % (Manual) Monocytes % (Manual) Seg Neutrophils # Seg Neutrophils # Man Lymphocytes # (Manual) Monocytes # (Manual) Eosinophils # (Manual) Basophils # (Manual) PT INR APTT ABG pH ABG pO2 68.3 L ABG HCO3 33.5 H ABG O2 Saturation 93.5 L ABG Base Excess 8.4 H ABG Hemoglobin 7.3 L Oxyhemoglobin 90.9 L Sodium Potassium Chloride Carbon Dioxide BUN Creatinine Glucose POC Glucose 107 H Lactic Acid Calcium Ionized Calcium Phosphorus Magnesium Total Bilirubin AST ALT Alkaline Phosphatase Ammonia Total Creatine Kinase CK-MB (CK-2) CK-MB (CK-2) Rel Index Total Protein Albumin Urine WBC (Auto) Vancomycin Trough Salicylates Acetaminophen Plasma/Serum Alcohol Crossmatch 12/04/19 12/04/19 12/04/19 04:26 07:45 12:02 WBC 15.9 H RBC 2.88 L Hgb 7.9 L Hct 25.1 L MCH RDW 20.4 H Plt Count 839 H Lymph % (Auto) 11.3 L [place] % (Auto) 15.2 H [place] # 2.4 H Baso # Seg Neutrophils % 72.4 H Seg Neuts % (Manual) Lymphocytes % (Manual) Monocytes % (Manual) Seg Neutrophils # 11.5 H Seg Neutrophils # Man Lymphocytes # (Manual) Monocytes # (Manual) Eosinophils # (Manual) Basophils # (Manual) PT INR APTT ABG pH ABG pO2 ABG HCO3 ABG O2 Saturation ABG Base Excess ABG Hemoglobin Oxyhemoglobin Sodium Potassium Chloride 96.5 L Carbon Dioxide BUN 21 H Creatinine 0.6 L Glucose 107 H POC Glucose 138 H Lactic Acid Calcium Ionized Calcium Phosphorus Magnesium Total Bilirubin AST ALT Alkaline Phosphatase Ammonia Total Creatine Kinase CK-MB (CK-2) CK-MB (CK-2) Rel Index Total Protein Albumin Urine WBC (Auto) Vancomycin Trough Salicylates Acetaminophen Plasma/Serum Alcohol Crossmatch 12/04/19 12/05/19 12/05/19 18:16 11:55 18:36 WBC RBC Hgb Hct MCH RDW Plt Count Lymph % (Auto) [place] % (Auto) [place] # Baso # Seg Neutrophils % Seg Neuts % (Manual) Lymphocytes % (Manual) Monocytes % (Manual) Seg Neutrophils # Seg Neutrophils # Man Lymphocytes # (Manual) Monocytes # (Manual) Eosinophils # (Manual) Basophils # (Manual) PT INR APTT ABG pH ABG pO2 ABG HCO3 ABG O2 Saturation ABG Base Excess ABG Hemoglobin Oxyhemoglobin Sodium Potassium Chloride Carbon Dioxide BUN Creatinine Glucose POC Glucose 135 H 125 H 135 H Lactic Acid Calcium Ionized Calcium Phosphorus Magnesium Total Bilirubin AST ALT Alkaline Phosphatase Ammonia Total Creatine Kinase CK-MB (CK-2) CK-MB (CK-2) Rel Index Total Protein Albumin Urine WBC (Auto) Vancomycin Trough Salicylates Acetaminophen Plasma/Serum Alcohol Crossmatch 12/05/19 12/06/19 12/06/19 23:30 04:14 05:43 WBC RBC Hgb Hct MCH RDW Plt Count Lymph % (Auto) [place] % (Auto) [place] # Baso # Seg Neutrophils % Seg Neuts % (Manual) Lymphocytes % (Manual) Monocytes % (Manual) Seg Neutrophils # Seg Neutrophils # Man Lymphocytes # (Manual) Monocytes # (Manual) Eosinophils # (Manual) Basophils # (Manual) PT INR APTT ABG pH ABG pO2 ABG HCO3 ABG O2 Saturation ABG Base Excess ABG Hemoglobin Oxyhemoglobin Sodium Potassium 5.6 H Chloride 95.0 L Carbon Dioxide BUN 48 H Creatinine 1.3 H D Glucose POC Glucose 126 H 121 H Lactic Acid Calcium Ionized Calcium Phosphorus Magnesium Total Bilirubin AST 89 H ALT 98 H Alkaline Phosphatase 476 H Ammonia Total Creatine Kinase CK-MB (CK-2) CK-MB (CK-2) Rel Index Total Protein Albumin 2.8 L Urine WBC (Auto) Vancomycin Trough Salicylates Acetaminophen Plasma/Serum Alcohol Crossmatch 12/06/19 12/06/19 12/07/19 10:39 14:34 00:19 WBC 17.3 H RBC 2.60 L Hgb 7.1 L Hct 22.7 L MCH 27 L RDW 20.1 H Plt Count 832 H Lymph % (Auto) [place] % (Auto) [place] # Baso # Seg Neutrophils % Seg Neuts % (Manual) Lymphocytes % (Manual) Monocytes % (Manual) Seg Neutrophils # Seg Neutrophils # Man Lymphocytes # (Manual) Monocytes # (Manual) Eosinophils # (Manual) Basophils # (Manual) PT INR APTT ABG pH ABG pO2 ABG HCO3 ABG O2 Saturation ABG Base Excess ABG Hemoglobin Oxyhemoglobin Sodium Potassium Chloride Carbon Dioxide BUN Creatinine Glucose POC Glucose 128 H 136 H Lactic Acid Calcium Ionized Calcium Phosphorus Magnesium Total Bilirubin AST ALT Alkaline Phosphatase Ammonia Total Creatine Kinase CK-MB (CK-2) CK-MB (CK-2) Rel Index Total Protein Albumin Urine WBC (Auto) Vancomycin Trough Salicylates Acetaminophen Plasma/Serum Alcohol Crossmatch 12/07/19 12/07/19 12/07/19 03:44 03:44 05:53 WBC 16.2 H RBC 2.56 L Hgb 7.1 L Hct 22.3 L MCH RDW 19.4 H Plt Count 782 H Lymph % (Auto) [place] % (Auto) [place] # Baso # Seg Neutrophils % Seg Neuts % (Manual) Lymphocytes % (Manual) Monocytes % (Manual) Seg Neutrophils # Seg Neutrophils # Man Lymphocytes # (Manual) Monocytes # (Manual) Eosinophils # (Manual) Basophils # (Manual) PT INR APTT ABG pH ABG pO2 ABG HCO3 ABG O2 Saturation ABG Base Excess ABG Hemoglobin Oxyhemoglobin Sodium Potassium Chloride 95.6 L Carbon Dioxide BUN 56 H Creatinine 1.4 H Glucose 120 H POC Glucose 128 H Lactic Acid Calcium 10.3 H Ionized Calcium Phosphorus Magnesium Total Bilirubin AST ALT Alkaline Phosphatase Ammonia Total Creatine Kinase CK-MB (CK-2) CK-MB (CK-2) Rel Index Total Protein Albumin Urine WBC (Auto) Vancomycin Trough Salicylates Acetaminophen Plasma/Serum Alcohol Crossmatch 12/07/19 12/07/19 12/08/19 12:54 23:47 00:20 WBC RBC Hgb Hct MCH RDW Plt Count Lymph % (Auto) [place] % (Auto) [place] # Baso # Seg Neutrophils % Seg Neuts % (Manual) Lymphocytes % (Manual) Monocytes % (Manual) Seg Neutrophils # Seg Neutrophils # Man Lymphocytes # (Manual) Monocytes # (Manual) Eosinophils # (Manual) Basophils # (Manual) PT INR APTT ABG pH ABG pO2 ABG HCO3 ABG O2 Saturation ABG Base Excess ABG Hemoglobin Oxyhemoglobin Sodium Potassium Chloride Carbon Dioxide BUN Creatinine Glucose POC Glucose 128 H 130 H 124 H Lactic Acid Calcium Ionized Calcium Phosphorus Magnesium Total Bilirubin AST ALT Alkaline Phosphatase Ammonia Total Creatine Kinase CK-MB (CK-2) CK-MB (CK-2) Rel Index Total Protein Albumin Urine WBC (Auto) Vancomycin Trough Salicylates Acetaminophen Plasma/Serum Alcohol Crossmatch 12/08/19 12/08/19 12/08/19 06:38 12:04 18:26 WBC RBC Hgb Hct MCH RDW Plt Count Lymph % (Auto) [place] % (Auto) [place] # Baso # Seg Neutrophils % Seg Neuts % (Manual) Lymphocytes % (Manual) Monocytes % (Manual) Seg Neutrophils # Seg Neutrophils # Man Lymphocytes # (Manual) Monocytes # (Manual) Eosinophils # (Manual) Basophils # (Manual) PT INR APTT ABG pH ABG pO2 ABG HCO3 ABG O2 Saturation ABG Base Excess ABG Hemoglobin Oxyhemoglobin Sodium Potassium Chloride Carbon Dioxide BUN Creatinine Glucose POC Glucose 137 H 129 H 150 H Lactic Acid Calcium Ionized Calcium Phosphorus Magnesium Total Bilirubin AST ALT Alkaline Phosphatase Ammonia Total Creatine Kinase CK-MB (CK-2) CK-MB (CK-2) Rel Index Total Protein Albumin Urine WBC (Auto) Vancomycin Trough Salicylates Acetaminophen Plasma/Serum Alcohol Crossmatch 12/09/19 12/09/19 12/09/19 00:56 05:34 06:13 WBC RBC Hgb Hct MCH RDW Plt Count Lymph % (Auto) [place] % (Auto) [place] # Baso # Seg Neutrophils % Seg Neuts % (Manual) Lymphocytes % (Manual) Monocytes % (Manual) Seg Neutrophils # Seg Neutrophils # Man Lymphocytes # (Manual) Monocytes # (Manual) Eosinophils # (Manual) Basophils # (Manual) PT INR APTT ABG pH ABG pO2 ABG HCO3 ABG O2 Saturation ABG Base Excess ABG Hemoglobin Oxyhemoglobin Sodium 146 H Potassium Chloride Carbon Dioxide BUN 66 H Creatinine 1.9 H Glucose 116 H POC Glucose 130 H 130 H Lactic Acid Calcium Ionized Calcium Phosphorus Magnesium Total Bilirubin AST ALT Alkaline Phosphatase Ammonia Total Creatine Kinase CK-MB (CK-2) CK-MB (CK-2) Rel Index Total Protein Albumin Urine WBC (Auto) Vancomycin Trough Salicylates Acetaminophen Plasma/Serum Alcohol Crossmatch 12/09/19 12/09/19 12/10/19 11:52 17:50 00:14 WBC RBC Hgb Hct MCH RDW Plt Count Lymph % (Auto) [place] % (Auto) [place] # Baso # Seg Neutrophils % Seg Neuts % (Manual) Lymphocytes % (Manual) Monocytes % (Manual) Seg Neutrophils # Seg Neutrophils # Man Lymphocytes # (Manual) Monocytes # (Manual) Eosinophils # (Manual) Basophils # (Manual) PT INR APTT ABG pH ABG pO2 ABG HCO3 ABG O2 Saturation ABG Base Excess ABG Hemoglobin Oxyhemoglobin Sodium Potassium Chloride Carbon Dioxide BUN Creatinine Glucose POC Glucose 135 H 120 H 116 H Lactic Acid Calcium Ionized Calcium Phosphorus Magnesium Total Bilirubin AST ALT Alkaline Phosphatase Ammonia Total Creatine Kinase CK-MB (CK-2) CK-MB (CK-2) Rel Index Total Protein Albumin Urine WBC (Auto) Vancomycin Trough Salicylates Acetaminophen Plasma/Serum Alcohol Crossmatch 12/10/19 12/10/19 12/10/19 05:38 11:38 17:34 WBC RBC Hgb Hct MCH RDW Plt Count Lymph % (Auto) [place] % (Auto) [place] # Baso # Seg Neutrophils % Seg Neuts % (Manual) Lymphocytes % (Manual) Monocytes % (Manual) Seg Neutrophils # Seg Neutrophils # Man Lymphocytes # (Manual) Monocytes # (Manual) Eosinophils # (Manual) Basophils # (Manual) PT INR APTT ABG pH ABG pO2 ABG HCO3 ABG O2 Saturation ABG Base Excess ABG Hemoglobin Oxyhemoglobin Sodium Potassium Chloride Carbon Dioxide BUN Creatinine Glucose POC Glucose 115 H 112 H 130 H Lactic Acid Calcium Ionized Calcium Phosphorus Magnesium Total Bilirubin AST ALT Alkaline Phosphatase Ammonia Total Creatine Kinase CK-MB (CK-2) CK-MB (CK-2) Rel Index Total Protein Albumin Urine WBC (Auto) Vancomycin Trough Salicylates Acetaminophen Plasma/Serum Alcohol Crossmatch 12/11/19 12/11/19 12/11/19 00:20 05:31 12:22 WBC RBC Hgb Hct MCH RDW Plt Count Lymph % (Auto) [place] % (Auto) [place] # Baso # Seg Neutrophils % Seg Neuts % (Manual) Lymphocytes % (Manual) Monocytes % (Manual) Seg Neutrophils # Seg Neutrophils # Man Lymphocytes # (Manual) Monocytes # (Manual) Eosinophils # (Manual) Basophils # (Manual) PT INR APTT ABG pH ABG pO2 ABG HCO3 ABG O2 Saturation ABG Base Excess ABG Hemoglobin Oxyhemoglobin Sodium Potassium Chloride Carbon Dioxide BUN Creatinine Glucose POC Glucose 124 H 132 H 128 H Lactic Acid Calcium Ionized Calcium Phosphorus Magnesium Total Bilirubin AST ALT Alkaline Phosphatase Ammonia Total Creatine Kinase CK-MB (CK-2) CK-MB (CK-2) Rel Index Total Protein Albumin Urine WBC (Auto) Vancomycin Trough Salicylates Acetaminophen Plasma/Serum Alcohol Crossmatch 12/11/19 12/11/19 12/12/19 18:04 23:42 03:51 WBC RBC Hgb Hct MCH RDW Plt Count Lymph % (Auto) [place] % (Auto) [place] # Baso # Seg Neutrophils % Seg Neuts % (Manual) Lymphocytes % (Manual) Monocytes % (Manual) Seg Neutrophils # Seg Neutrophils # Man Lymphocytes # (Manual) Monocytes # (Manual) Eosinophils # (Manual) Basophils # (Manual) PT INR APTT ABG pH ABG pO2 ABG HCO3 ABG O2 Saturation ABG Base Excess ABG Hemoglobin Oxyhemoglobin Sodium 149 H Potassium Chloride Carbon Dioxide 20 L D BUN 77 H Creatinine 2.8 H Glucose POC Glucose 133 H 154 H Lactic Acid Calcium Ionized Calcium Phosphorus Magnesium Total Bilirubin AST ALT Alkaline Phosphatase Ammonia Total Creatine Kinase CK-MB (CK-2) CK-MB (CK-2) Rel Index Total Protein Albumin Urine WBC (Auto) Vancomycin Trough Salicylates Acetaminophen Plasma/Serum Alcohol Crossmatch 12/12/19 12/12/19 12/12/19 05:18 05:26 10:30 WBC 18.0 H RBC 2.51 L Hgb 6.8 L Hct 22.0 L MCH 27 L RDW 19.9 H Plt Count 582 H Lymph % (Auto) [place] % (Auto) [place] # Baso # Seg Neutrophils % Seg Neuts % (Manual) Lymphocytes % (Manual) Monocytes % (Manual) Seg Neutrophils # Seg Neutrophils # Man Lymphocytes # (Manual) Monocytes # (Manual) Eosinophils # (Manual) Basophils # (Manual) PT INR APTT ABG pH ABG pO2 ABG HCO3 ABG O2 Saturation ABG Base Excess ABG Hemoglobin Oxyhemoglobin Sodium Potassium Chloride Carbon Dioxide BUN Creatinine Glucose POC Glucose 135 H Lactic Acid Calcium Ionized Calcium Phosphorus Magnesium Total Bilirubin AST ALT Alkaline Phosphatase Ammonia Total Creatine Kinase CK-MB (CK-2) CK-MB (CK-2) Rel Index Total Protein Albumin Urine WBC (Auto) Vancomycin Trough Salicylates Acetaminophen Plasma/Serum Alcohol Crossmatch See Detail 12/12/19 12/12/19 12/12/19 11:44 18:10 23:21 WBC RBC Hgb Hct MCH RDW Plt Count Lymph % (Auto) [place] % (Auto) [place] # Baso # Seg Neutrophils % Seg Neuts % (Manual) Lymphocytes % (Manual) Monocytes % (Manual) Seg Neutrophils # Seg Neutrophils # Man Lymphocytes # (Manual) Monocytes # (Manual) Eosinophils # (Manual) Basophils # (Manual) PT INR APTT ABG pH ABG pO2 ABG HCO3 ABG O2 Saturation ABG Base Excess ABG Hemoglobin Oxyhemoglobin Sodium Potassium Chloride Carbon Dioxide BUN Creatinine Glucose POC Glucose 108 H 107 H 126 H Lactic Acid Calcium Ionized Calcium Phosphorus Magnesium Total Bilirubin AST ALT Alkaline Phosphatase Ammonia Total Creatine Kinase CK-MB (CK-2) CK-MB (CK-2) Rel Index Total Protein Albumin Urine WBC (Auto) Vancomycin Trough Salicylates Acetaminophen Plasma/Serum Alcohol Crossmatch 12/13/19 12/13/19 12/13/19 05:41 07:48 07:48 WBC 38.3 H RBC 2.37 L Hgb 6.3 L Hct 20.9 L MCH 27 L RDW 20.2 H Plt Count 546 H Lymph % (Auto) [place] % (Auto) [place] # Baso # Seg Neutrophils % Seg Neuts % (Manual) 93.0 H Lymphocytes % (Manual) 1.0 L Monocytes % (Manual) Seg Neutrophils # Seg Neutrophils # Man 35.6 H Lymphocytes # (Manual) 0.4 L Monocytes # (Manual) Eosinophils # (Manual) Basophils # (Manual) 0.4 H PT INR APTT ABG pH ABG pO2 ABG HCO3 ABG O2 Saturation ABG Base Excess ABG Hemoglobin Oxyhemoglobin Sodium 152 H Potassium 3.1 L D Chloride 111.9 H Carbon Dioxide 21 L BUN 53 H Creatinine 1.9 H Glucose 141 H POC Glucose 128 H Lactic Acid Calcium Ionized Calcium Phosphorus Magnesium Total Bilirubin AST ALT Alkaline Phosphatase 316 H Ammonia Total Creatine Kinase CK-MB (CK-2) CK-MB (CK-2) Rel Index Total Protein Albumin 2.4 L Urine WBC (Auto) Vancomycin Trough Salicylates Acetaminophen Plasma/Serum Alcohol Crossmatch 12/13/19 12/13/19 12/14/19 18:17 23:19 05:36 WBC RBC Hgb Hct MCH RDW Plt Count Lymph % (Auto) [place] % (Auto) [place] # Baso # Seg Neutrophils % Seg Neuts % (Manual) Lymphocytes % (Manual) Monocytes % (Manual) Seg Neutrophils # Seg Neutrophils # Man Lymphocytes # (Manual) Monocytes # (Manual) Eosinophils # (Manual) Basophils # (Manual) PT INR APTT ABG pH ABG pO2 ABG HCO3 ABG O2 Saturation ABG Base Excess ABG Hemoglobin Oxyhemoglobin Sodium Potassium Chloride Carbon Dioxide BUN Creatinine Glucose POC Glucose 141 H 158 H 182 H Lactic Acid Calcium Ionized Calcium Phosphorus Magnesium Total Bilirubin AST ALT Alkaline Phosphatase Ammonia Total Creatine Kinase CK-MB (CK-2) CK-MB (CK-2) Rel Index Total Protein Albumin Urine WBC (Auto) Vancomycin Trough Salicylates Acetaminophen Plasma/Serum Alcohol Crossmatch 12/14/19 12/14/19 12/14/19 08:48 08:48 10:31 WBC 33.3 H RBC 2.70 L Hgb 7.9 L 8.0 L Hct 25.3 L 24.0 L MCH RDW 19.2 H Plt Count 476 H Lymph % (Auto) [place] % (Auto) [place] # Baso # Seg Neutrophils % Seg Neuts % (Manual) Lymphocytes % (Manual) Monocytes % (Manual) Seg Neutrophils # Seg Neutrophils # Man Lymphocytes # (Manual) Monocytes # (Manual) Eosinophils # (Manual) Basophils # (Manual) PT INR APTT ABG pH ABG pO2 ABG HCO3 ABG O2 Saturation ABG Base Excess ABG Hemoglobin Oxyhemoglobin Sodium 153 H Potassium 2.5 L* Chloride 114.9 H Carbon Dioxide 20 L BUN 38 H Creatinine 1.4 H Glucose 177 H POC Glucose Lactic Acid Calcium Ionized Calcium Phosphorus Magnesium Total Bilirubin AST ALT Alkaline Phosphatase Ammonia Total Creatine Kinase CK-MB (CK-2) CK-MB (CK-2) Rel Index Total Protein Albumin Urine WBC (Auto) Vancomycin Trough Salicylates Acetaminophen Plasma/Serum Alcohol Crossmatch 12/14/19 12/14/19 12/14/19 12:57 16:15 17:50 WBC RBC Hgb Hct MCH RDW Plt Count Lymph % (Auto) [place] % (Auto) [place] # Baso # Seg Neutrophils % Seg Neuts % (Manual) Lymphocytes % (Manual) Monocytes % (Manual) Seg Neutrophils # Seg Neutrophils # Man Lymphocytes # (Manual) Monocytes # (Manual) Eosinophils # (Manual) Basophils # (Manual) PT INR APTT ABG pH ABG pO2 73.6 L ABG HCO3 ABG O2 Saturation ABG Base Excess ABG Hemoglobin 7.6 L Oxyhemoglobin 94.0 L Sodium Potassium Chloride Carbon Dioxide BUN Creatinine Glucose POC Glucose 174 H 150 H Lactic Acid Calcium Ionized Calcium Phosphorus Magnesium Total Bilirubin AST ALT Alkaline Phosphatase Ammonia Total Creatine Kinase CK-MB (CK-2) CK-MB (CK-2) Rel Index Total Protein Albumin Urine WBC (Auto) Vancomycin Trough Salicylates Acetaminophen Plasma/Serum Alcohol Crossmatch 12/15/19 12/15/19 12/15/19 00:28 05:27 07:23 WBC 30.0 H RBC 3.11 L Hgb 8.6 L Hct 27.7 L MCH RDW 20.0 H Plt Count 473 H Lymph % (Auto) [place] % (Auto) [place] # Baso # Seg Neutrophils % Seg Neuts % (Manual) Lymphocytes % (Manual) Monocytes % (Manual) Seg Neutrophils # Seg Neutrophils # Man Lymphocytes # (Manual) Monocytes # (Manual) Eosinophils # (Manual) Basophils # (Manual) PT INR APTT ABG pH ABG pO2 ABG HCO3 ABG O2 Saturation ABG Base Excess ABG Hemoglobin Oxyhemoglobin Sodium Potassium Chloride Carbon Dioxide BUN Creatinine Glucose POC Glucose 167 H 148 H Lactic Acid Calcium Ionized Calcium Phosphorus Magnesium Total Bilirubin AST ALT Alkaline Phosphatase Ammonia Total Creatine Kinase CK-MB (CK-2) CK-MB (CK-2) Rel Index Total Protein Albumin Urine WBC (Auto) Vancomycin Trough Salicylates Acetaminophen Plasma/Serum Alcohol Crossmatch 12/15/19 12/15/19 12/15/19 07:23 12:21 17:41 WBC RBC Hgb Hct MCH RDW Plt Count Lymph % (Auto) [place] % (Auto) [place] # Baso # Seg Neutrophils % Seg Neuts % (Manual) Lymphocytes % (Manual) Monocytes % (Manual) Seg Neutrophils # Seg Neutrophils # Man Lymphocytes # (Manual) Monocytes # (Manual) Eosinophils # (Manual) Basophils # (Manual) PT INR APTT ABG pH ABG pO2 ABG HCO3 ABG O2 Saturation ABG Base Excess ABG Hemoglobin Oxyhemoglobin Sodium 147 H Potassium 3.5 L D Chloride 111.2 H Carbon Dioxide 19 L BUN 29 H Creatinine Glucose 126 H POC Glucose 154 H 144 H Lactic Acid Calcium Ionized Calcium Phosphorus Magnesium Total Bilirubin AST ALT Alkaline Phosphatase Ammonia Total Creatine Kinase CK-MB (CK-2) CK-MB (CK-2) Rel Index Total Protein Albumin Urine WBC (Auto) Vancomycin Trough Salicylates Acetaminophen Plasma/Serum Alcohol Crossmatch 12/16/19 12/16/19 12/16/19 00:22 05:30 05:44 WBC 30.8 H RBC 2.58 L Hgb 7.1 L Hct 22.7 L MCH RDW 19.6 H Plt Count 451 H Lymph % (Auto) [place] % (Auto) [place] # Baso # Seg Neutrophils % Seg Neuts % (Manual) Lymphocytes % (Manual) Monocytes % (Manual) Seg Neutrophils # Seg Neutrophils # Man Lymphocytes # (Manual) Monocytes # (Manual) Eosinophils # (Manual) Basophils # (Manual) PT INR APTT ABG pH ABG pO2 ABG HCO3 ABG O2 Saturation ABG Base Excess ABG Hemoglobin Oxyhemoglobin Sodium Potassium Chloride Carbon Dioxide BUN Creatinine Glucose POC Glucose 139 H 126 H Lactic Acid Calcium Ionized Calcium Phosphorus Magnesium Total Bilirubin AST ALT Alkaline Phosphatase Ammonia Total Creatine Kinase CK-MB (CK-2) CK-MB (CK-2) Rel Index Total Protein Albumin Urine WBC (Auto) Vancomycin Trough Salicylates Acetaminophen Plasma/Serum Alcohol Crossmatch 12/16/19 12/16/19 12/16/19 05:44 11:48 17:37 WBC RBC Hgb Hct MCH RDW Plt Count Lymph % (Auto) [place] % (Auto) [place] # Baso # Seg Neutrophils % Seg Neuts % (Manual) Lymphocytes % (Manual) Monocytes % (Manual) Seg Neutrophils # Seg Neutrophils # Man Lymphocytes # (Manual) Monocytes # (Manual) Eosinophils # (Manual) Basophils # (Manual) PT INR APTT ABG pH ABG pO2 ABG HCO3 ABG O2 Saturation ABG Base Excess ABG Hemoglobin Oxyhemoglobin Sodium Potassium 3.4 L Chloride 109.2 H Carbon Dioxide 19 L BUN 27 H Creatinine Glucose 124 H POC Glucose 125 H 148 H Lactic Acid Calcium Ionized Calcium Phosphorus Magnesium Total Bilirubin AST ALT Alkaline Phosphatase Ammonia Total Creatine Kinase CK-MB (CK-2) CK-MB (CK-2) Rel Index Total Protein Albumin Urine WBC (Auto) Vancomycin Trough Salicylates Acetaminophen Plasma/Serum Alcohol Crossmatch 12/16/19 12/17/19 12/17/19 23:43 05:28 12:47 WBC RBC Hgb Hct MCH RDW Plt Count Lymph % (Auto) [place] % (Auto) [place] # Baso # Seg Neutrophils % Seg Neuts % (Manual) Lymphocytes % (Manual) Monocytes % (Manual) Seg Neutrophils # Seg Neutrophils # Man Lymphocytes # (Manual) Monocytes # (Manual) Eosinophils # (Manual) Basophils # (Manual) PT INR APTT ABG pH ABG pO2 ABG HCO3 ABG O2 Saturation ABG Base Excess ABG Hemoglobin Oxyhemoglobin Sodium Potassium Chloride Carbon Dioxide BUN Creatinine Glucose POC Glucose 142 H 140 H 125 H Lactic Acid Calcium Ionized Calcium Phosphorus Magnesium Total Bilirubin AST ALT Alkaline Phosphatase Ammonia Total Creatine Kinase CK-MB (CK-2) CK-MB (CK-2) Rel Index Total Protein Albumin Urine WBC (Auto) Vancomycin Trough Salicylates Acetaminophen Plasma/Serum Alcohol Crossmatch 12/17/19 12/17/19 12/17/19 17:05 18:00 Unknown WBC RBC Hgb Hct MCH RDW Plt Count Lymph % (Auto) [place] % (Auto) [place] # Baso # Seg Neutrophils % Seg Neuts % (Manual) Lymphocytes % (Manual) Monocytes % (Manual) Seg Neutrophils # Seg Neutrophils # Man Lymphocytes # (Manual) Monocytes # (Manual) Eosinophils # (Manual) Basophils # (Manual) PT INR APTT ABG pH ABG pO2 68.1 L ABG HCO3 ABG O2 Saturation 93.7 L ABG Base Excess ABG Hemoglobin 5.0 L Oxyhemoglobin 91.7 L Sodium Potassium Chloride Carbon Dioxide BUN Creatinine Glucose POC Glucose 140 H Lactic Acid Calcium Ionized Calcium Phosphorus Magnesium Total Bilirubin AST ALT Alkaline Phosphatase Ammonia Total Creatine Kinase CK-MB (CK-2) CK-MB (CK-2) Rel Index Total Protein Albumin Urine WBC (Auto) Vancomycin Trough Salicylates Acetaminophen Plasma/Serum Alcohol Crossmatch 12/18/19 12/18/19 12/18/19 00:16 04:53 04:53 WBC 28.6 H RBC 2.27 L Hgb 6.3 L Hct 19.5 L* MCH RDW 20.0 H Plt Count 497 H Lymph % (Auto) [place] % (Auto) [place] # Baso # Seg Neutrophils % Seg Neuts % (Manual) Lymphocytes % (Manual) Monocytes % (Manual) Seg Neutrophils # Seg Neutrophils # Man Lymphocytes # (Manual) Monocytes # (Manual) Eosinophils # (Manual) Basophils # (Manual) PT INR APTT ABG pH ABG pO2 ABG HCO3 ABG O2 Saturation ABG Base Excess ABG Hemoglobin Oxyhemoglobin Sodium Potassium Chloride 107.9 H Carbon Dioxide 20 L BUN 27 H Creatinine 0.6 L Glucose 116 H POC Glucose 123 H Lactic Acid Calcium Ionized Calcium Phosphorus Magnesium Total Bilirubin AST ALT Alkaline Phosphatase Ammonia Total Creatine Kinase CK-MB (CK-2) CK-MB (CK-2) Rel Index Total Protein Albumin Urine WBC (Auto) Vancomycin Trough Salicylates Acetaminophen Plasma/Serum Alcohol Crossmatch 12/18/19 12/18/19 12/18/19 06:38 11:22 12:08 WBC RBC Hgb Hct MCH RDW Plt Count Lymph % (Auto) [place] % (Auto) [place] # Baso # Seg Neutrophils % Seg Neuts % (Manual) Lymphocytes % (Manual) Monocytes % (Manual) Seg Neutrophils # Seg Neutrophils # Man Lymphocytes # (Manual) Monocytes # (Manual) Eosinophils # (Manual) Basophils # (Manual) PT INR APTT ABG pH ABG pO2 ABG HCO3 ABG O2 Saturation ABG Base Excess ABG Hemoglobin Oxyhemoglobin Sodium Potassium Chloride Carbon Dioxide BUN Creatinine Glucose POC Glucose 120 H 127 H Lactic Acid Calcium Ionized Calcium Phosphorus Magnesium Total Bilirubin AST ALT Alkaline Phosphatase Ammonia Total Creatine Kinase CK-MB (CK-2) CK-MB (CK-2) Rel Index Total Protein Albumin Urine WBC (Auto) Vancomycin Trough Salicylates Acetaminophen Plasma/Serum Alcohol Crossmatch See Detail 12/18/19 12/18/19 12/18/19 14:05 17:49 23:53 WBC RBC Hgb Hct MCH RDW Plt Count Lymph % (Auto) [place] % (Auto) [place] # Baso # Seg Neutrophils % Seg Neuts % (Manual) Lymphocytes % (Manual) Monocytes % (Manual) Seg Neutrophils # Seg Neutrophils # Man Lymphocytes # (Manual) Monocytes # (Manual) Eosinophils # (Manual) Basophils # (Manual) PT INR APTT ABG pH 7.267 L ABG pO2 69.8 L ABG HCO3 ABG O2 Saturation 88.4 L ABG Base Excess ABG Hemoglobin 7.1 L Oxyhemoglobin 86.4 L Sodium Potassium Chloride Carbon Dioxide BUN Creatinine Glucose POC Glucose 157 H 128 H Lactic Acid Calcium Ionized Calcium Phosphorus Magnesium Total Bilirubin AST ALT Alkaline Phosphatase Ammonia Total Creatine Kinase CK-MB (CK-2) CK-MB (CK-2) Rel Index Total Protein Albumin Urine WBC (Auto) Vancomycin Trough Salicylates Acetaminophen Plasma/Serum Alcohol Crossmatch 12/19/19 12/19/19 12/19/19 03:37 03:37 05:25 WBC 31.3 H RBC 2.60 L Hgb 7.6 L Hct 23.0 L MCH RDW 19.4 H Plt Count 530 H Lymph % (Auto) [place] % (Auto) [place] # Baso # Seg Neutrophils % Seg Neuts % (Manual) Lymphocytes % (Manual) Monocytes % (Manual) Seg Neutrophils # Seg Neutrophils # Man Lymphocytes # (Manual) Monocytes # (Manual) Eosinophils # (Manual) Basophils # (Manual) PT INR APTT ABG pH ABG pO2 ABG HCO3 ABG O2 Saturation ABG Base Excess ABG Hemoglobin Oxyhemoglobin Sodium Potassium Chloride Carbon Dioxide 18 L BUN 36 H Creatinine Glucose 111 H POC Glucose 123 H Lactic Acid Calcium Ionized Calcium Phosphorus Magnesium Total Bilirubin AST ALT Alkaline Phosphatase Ammonia Total Creatine Kinase CK-MB (CK-2) CK-MB (CK-2) Rel Index Total Protein Albumin Urine WBC (Auto) Vancomycin Trough Salicylates Acetaminophen Plasma/Serum Alcohol Crossmatch 12/19/19 12/19/19 12/20/19 12:59 18:33 00:00 WBC RBC Hgb Hct MCH RDW Plt Count Lymph % (Auto) [place] % (Auto) [place] # Baso # Seg Neutrophils % Seg Neuts % (Manual) Lymphocytes % (Manual) Monocytes % (Manual) Seg Neutrophils # Seg Neutrophils # Man Lymphocytes # (Manual) Monocytes # (Manual) Eosinophils # (Manual) Basophils # (Manual) PT INR APTT ABG pH ABG pO2 ABG HCO3 ABG O2 Saturation ABG Base Excess ABG Hemoglobin Oxyhemoglobin Sodium Potassium Chloride Carbon Dioxide BUN Creatinine Glucose POC Glucose 130 H 118 H 135 H Lactic Acid Calcium Ionized Calcium Phosphorus Magnesium Total Bilirubin AST ALT Alkaline Phosphatase Ammonia Total Creatine Kinase CK-MB (CK-2) CK-MB (CK-2) Rel Index Total Protein Albumin Urine WBC (Auto) Vancomycin Trough Salicylates Acetaminophen Plasma/Serum Alcohol Crossmatch 12/20/19 12/20/19 12/20/19 05:46 12:31 18:07 WBC RBC Hgb Hct MCH RDW Plt Count Lymph % (Auto) [place] % (Auto) [place] # Baso # Seg Neutrophils % Seg Neuts % (Manual) Lymphocytes % (Manual) Monocytes % (Manual) Seg Neutrophils # Seg Neutrophils # Man Lymphocytes # (Manual) Monocytes # (Manual) Eosinophils # (Manual) Basophils # (Manual) PT INR APTT ABG pH ABG pO2 ABG HCO3 ABG O2 Saturation ABG Base Excess ABG Hemoglobin Oxyhemoglobin Sodium Potassium Chloride Carbon Dioxide BUN Creatinine Glucose POC Glucose 131 H 128 H 134 H Lactic Acid Calcium Ionized Calcium Phosphorus Magnesium Total Bilirubin AST ALT Alkaline Phosphatase Ammonia Total Creatine Kinase CK-MB (CK-2) CK-MB (CK-2) Rel Index Total Protein Albumin Urine WBC (Auto) Vancomycin Trough Salicylates Acetaminophen Plasma/Serum Alcohol Crossmatch 12/21/19 12/21/19 12/21/19 03:28 03:28 07:21 WBC 29.4 H RBC 2.30 L Hgb 6.8 L Hct 20.2 L MCH RDW 20.2 H Plt Count 746 H Lymph % (Auto) [place] % (Auto) [place] # Baso # Seg Neutrophils % Seg Neuts % (Manual) 85.0 H Lymphocytes % (Manual) 8.0 L Monocytes % (Manual) Seg Neutrophils # Seg Neutrophils # Man 25.0 H Lymphocytes # (Manual) Monocytes # (Manual) 1.5 H Eosinophils # (Manual) 0.6 H Basophils # (Manual) PT INR APTT ABG pH ABG pO2 ABG HCO3 ABG O2 Saturation ABG Base Excess ABG Hemoglobin Oxyhemoglobin Sodium Potassium Chloride Carbon Dioxide 17 L BUN 57 H Creatinine 1.4 H D Glucose POC Glucose 124 H Lactic Acid Calcium Ionized Calcium Phosphorus Magnesium Total Bilirubin AST ALT Alkaline Phosphatase Ammonia Total Creatine Kinase CK-MB (CK-2) CK-MB (CK-2) Rel Index Total Protein Albumin Urine WBC (Auto) Vancomycin Trough Salicylates Acetaminophen Plasma/Serum Alcohol Crossmatch 12/21/19 12/21/19 12/21/19 08:56 12:06 14:53 WBC RBC Hgb 7.2 L Hct 22.9 L MCH RDW Plt Count Lymph % (Auto) [place] % (Auto) [place] # Baso # Seg Neutrophils % Seg Neuts % (Manual) Lymphocytes % (Manual) Monocytes % (Manual) Seg Neutrophils # Seg Neutrophils # Man Lymphocytes # (Manual) Monocytes # (Manual) Eosinophils # (Manual) Basophils # (Manual) PT INR APTT ABG pH ABG pO2 ABG HCO3 ABG O2 Saturation ABG Base Excess ABG Hemoglobin Oxyhemoglobin Sodium Potassium Chloride Carbon Dioxide BUN Creatinine Glucose POC Glucose 116 H Lactic Acid Calcium Ionized Calcium Phosphorus Magnesium Total Bilirubin AST ALT Alkaline Phosphatase Ammonia Total Creatine Kinase CK-MB (CK-2) CK-MB (CK-2) Rel Index Total Protein Albumin Urine WBC (Auto) Vancomycin Trough 33.8 H Salicylates Acetaminophen Plasma/Serum Alcohol Crossmatch 12/21/19 12/21/19 12/21/19 14:54 17:27 23:49 WBC RBC Hgb Hct MCH RDW Plt Count Lymph % (Auto) [place] % (Auto) [place] # Baso # Seg Neutrophils % Seg Neuts % (Manual) Lymphocytes % (Manual) Monocytes % (Manual) Seg Neutrophils # Seg Neutrophils # Man Lymphocytes # (Manual) Monocytes # (Manual) Eosinophils # (Manual) Basophils # (Manual) PT INR APTT ABG pH ABG pO2 ABG HCO3 ABG O2 Saturation ABG Base Excess ABG Hemoglobin Oxyhemoglobin Sodium Potassium Chloride Carbon Dioxide BUN Creatinine Glucose POC Glucose 145 H 127 H Lactic Acid Calcium Ionized Calcium Phosphorus Magnesium Total Bilirubin AST ALT Alkaline Phosphatase Ammonia Total Creatine Kinase CK-MB (CK-2) CK-MB (CK-2) Rel Index Total Protein Albumin Urine WBC (Auto) Vancomycin Trough Salicylates Acetaminophen Plasma/Serum Alcohol Crossmatch See Detail 12/22/19 12/22/19 12/22/19 04:43 05:56 08:40 WBC RBC Hgb Hct MCH RDW Plt Count Lymph % (Auto) [place] % (Auto) [place] # Baso # Seg Neutrophils % Seg Neuts % (Manual) Lymphocytes % (Manual) Monocytes % (Manual) Seg Neutrophils # Seg Neutrophils # Man Lymphocytes # (Manual) Monocytes # (Manual) Eosinophils # (Manual) Basophils # (Manual) PT INR APTT ABG pH ABG pO2 75.6 L ABG HCO3 ABG O2 Saturation ABG Base Excess -2.6 L ABG Hemoglobin 6.8 L Oxyhemoglobin 94.6 L Sodium Potassium Chloride Carbon Dioxide 17 L BUN 60 H Creatinine 1.4 H Glucose 126 H POC Glucose 153 H Lactic Acid Calcium Ionized Calcium Phosphorus Magnesium Total Bilirubin AST ALT Alkaline Phosphatase Ammonia Total Creatine Kinase CK-MB (CK-2) CK-MB (CK-2) Rel Index Total Protein Albumin Urine WBC (Auto) Vancomycin Trough Salicylates Acetaminophen Plasma/Serum Alcohol Crossmatch 12/22/19 12/22/19 12/23/19 12:07 17:49 04:30 WBC 22.4 H RBC 2.68 L Hgb 7.6 L Hct 22.9 L MCH RDW 19.9 H Plt Count 998 H Lymph % (Auto) [place] % (Auto) [place] # Baso # Seg Neutrophils % Seg Neuts % (Manual) 88.0 H Lymphocytes % (Manual) 2.0 L Monocytes % (Manual) 9.0 H Seg Neutrophils # Seg Neutrophils # Man 19.7 H Lymphocytes # (Manual) 0.4 L Monocytes # (Manual) 2.0 H Eosinophils # (Manual) Basophils # (Manual) PT INR APTT ABG pH ABG pO2 ABG HCO3 ABG O2 Saturation ABG Base Excess ABG Hemoglobin Oxyhemoglobin Sodium Potassium Chloride Carbon Dioxide BUN Creatinine Glucose POC Glucose 140 H 116 H Lactic Acid Calcium Ionized Calcium Phosphorus Magnesium Total Bilirubin AST ALT Alkaline Phosphatase Ammonia Total Creatine Kinase CK-MB (CK-2) CK-MB (CK-2) Rel Index Total Protein Albumin Urine WBC (Auto) Vancomycin Trough Salicylates Acetaminophen Plasma/Serum Alcohol Crossmatch 12/23/19 12/23/19 12/23/19 04:30 12:00 18:06 WBC RBC Hgb Hct MCH RDW Plt Count Lymph % (Auto) [place] % (Auto) [place] # Baso # Seg Neutrophils % Seg Neuts % (Manual) Lymphocytes % (Manual) Monocytes % (Manual) Seg Neutrophils # Seg Neutrophils # Man Lymphocytes # (Manual) Monocytes # (Manual) Eosinophils # (Manual) Basophils # (Manual) PT INR APTT ABG pH ABG pO2 ABG HCO3 ABG O2 Saturation ABG Base Excess ABG Hemoglobin Oxyhemoglobin Sodium Potassium 5.2 H Chloride Carbon Dioxide 21 L BUN 69 H Creatinine 1.5 H Glucose 117 H POC Glucose 128 H 138 H Lactic Acid Calcium Ionized Calcium Phosphorus Magnesium Total Bilirubin AST ALT Alkaline Phosphatase Ammonia Total Creatine Kinase CK-MB (CK-2) CK-MB (CK-2) Rel Index Total Protein Albumin Urine WBC (Auto) Vancomycin Trough Salicylates Acetaminophen Plasma/Serum Alcohol Crossmatch 12/23/19 12/24/19 12/24/19 23:46 04:31 05:08 WBC RBC Hgb Hct MCH RDW Plt Count Lymph % (Auto) [place] % (Auto) [place] # Baso # Seg Neutrophils % Seg Neuts % (Manual) Lymphocytes % (Manual) Monocytes % (Manual) Seg Neutrophils # Seg Neutrophils # Man Lymphocytes # (Manual) Monocytes # (Manual) Eosinophils # (Manual) Basophils # (Manual) PT INR APTT ABG pH ABG pO2 ABG HCO3 ABG O2 Saturation ABG Base Excess ABG Hemoglobin Oxyhemoglobin Sodium Potassium 5.3 H Chloride 107.6 H Carbon Dioxide 20 L BUN 72 H Creatinine 1.6 H Glucose 120 H POC Glucose 120 H 140 H Lactic Acid Calcium Ionized Calcium Phosphorus Magnesium Total Bilirubin AST ALT Alkaline Phosphatase Ammonia Total Creatine Kinase CK-MB (CK-2) CK-MB (CK-2) Rel Index Total Protein Albumin Urine WBC (Auto) Vancomycin Trough Salicylates Acetaminophen Plasma/Serum Alcohol Crossmatch 12/24/19 12/24/19 12/25/19 11:58 17:49 03:47 WBC 36.2 H RBC 2.92 L Hgb 8.4 L Hct 26.1 L MCH RDW 20.2 H Plt Count 942 H Lymph % (Auto) [place] % (Auto) [place] # Baso # Seg Neutrophils % Seg Neuts % (Manual) 97.5 H Lymphocytes % (Manual) 1.0 L Monocytes % (Manual) Seg Neutrophils # Seg Neutrophils # Man 35.3 H Lymphocytes # (Manual) 0.4 L Monocytes # (Manual) Eosinophils # (Manual) Basophils # (Manual) PT INR APTT ABG pH ABG pO2 ABG HCO3 ABG O2 Saturation ABG Base Excess ABG Hemoglobin Oxyhemoglobin Sodium Potassium Chloride Carbon Dioxide BUN Creatinine Glucose POC Glucose 146 H 131 H Lactic Acid Calcium Ionized Calcium Phosphorus Magnesium Total Bilirubin AST ALT Alkaline Phosphatase Ammonia Total Creatine Kinase CK-MB (CK-2) CK-MB (CK-2) Rel Index Total Protein Albumin Urine WBC (Auto) Vancomycin Trough Salicylates Acetaminophen Plasma/Serum Alcohol Crossmatch 12/25/19 12/25/19 12/25/19 03:47 05:30 12:23 WBC RBC Hgb Hct MCH RDW Plt Count Lymph % (Auto) [place] % (Auto) [place] # Baso # Seg Neutrophils % Seg Neuts % (Manual) Lymphocytes % (Manual) Monocytes % (Manual) Seg Neutrophils # Seg Neutrophils # Man Lymphocytes # (Manual) Monocytes # (Manual) Eosinophils # (Manual) Basophils # (Manual) PT INR APTT ABG pH ABG pO2 ABG HCO3 ABG O2 Saturation ABG Base Excess ABG Hemoglobin Oxyhemoglobin Sodium Potassium Chloride Carbon Dioxide 15 L BUN 70 H Creatinine 1.7 H Glucose 153 H POC Glucose 169 H 135 H Lactic Acid Calcium Ionized Calcium Phosphorus Magnesium Total Bilirubin AST ALT Alkaline Phosphatase Ammonia Total Creatine Kinase CK-MB (CK-2) CK-MB (CK-2) Rel Index Total Protein Albumin Urine WBC (Auto) Vancomycin Trough Salicylates Acetaminophen Plasma/Serum Alcohol Crossmatch 12/25/19 12/25/19 12/26/19 17:37 23:29 09:47 WBC 22.1 H RBC 2.83 L Hgb 7.9 L Hct 25.5 L MCH RDW 20.0 H Plt Count 894 H Lymph % (Auto) [place] % (Auto) [place] # Baso # Seg Neutrophils % Seg Neuts % (Manual) Lymphocytes % (Manual) Monocytes % (Manual) Seg Neutrophils # Seg Neutrophils # Man Lymphocytes # (Manual) Monocytes # (Manual) Eosinophils # (Manual) Basophils # (Manual) PT INR APTT ABG pH ABG pO2 ABG HCO3 ABG O2 Saturation ABG Base Excess ABG Hemoglobin Oxyhemoglobin Sodium Potassium Chloride Carbon Dioxide BUN Creatinine Glucose POC Glucose 120 H 140 H Lactic Acid Calcium Ionized Calcium Phosphorus Magnesium Total Bilirubin AST ALT Alkaline Phosphatase Ammonia Total Creatine Kinase CK-MB (CK-2) CK-MB (CK-2) Rel Index Total Protein Albumin Urine WBC (Auto) Vancomycin Trough Salicylates Acetaminophen Plasma/Serum Alcohol Crossmatch 12/26/19 12/26/19 12/26/19 09:47 11:46 17:52 WBC RBC Hgb Hct MCH RDW Plt Count Lymph % (Auto) [place] % (Auto) [place] # Baso # Seg Neutrophils % Seg Neuts % (Manual) Lymphocytes % (Manual) Monocytes % (Manual) Seg Neutrophils # Seg Neutrophils # Man Lymphocytes # (Manual) Monocytes # (Manual) Eosinophils # (Manual) Basophils # (Manual) PT INR APTT ABG pH ABG pO2 ABG HCO3 ABG O2 Saturation ABG Base Excess ABG Hemoglobin Oxyhemoglobin Sodium Potassium Chloride Carbon Dioxide 18 L BUN 65 H Creatinine 1.4 H Glucose 132 H POC Glucose 110 H 145 H Lactic Acid Calcium Ionized Calcium Phosphorus Magnesium Total Bilirubin AST ALT Alkaline Phosphatase Ammonia Total Creatine Kinase CK-MB (CK-2) CK-MB (CK-2) Rel Index Total Protein Albumin Urine WBC (Auto) Vancomycin Trough Salicylates Acetaminophen Plasma/Serum Alcohol Crossmatch 12/27/19 12/27/19 12/27/19 00:01 03:42 03:42 WBC 18.0 H RBC 2.86 L Hgb 8.0 L Hct 25.2 L MCH RDW 19.2 H Plt Count 873 H Lymph % (Auto) 8.4 L [place] % (Auto) 7.5 H [place] # 1.4 H Baso # 0.2 H Seg Neutrophils % 82.2 H Seg Neuts % (Manual) Lymphocytes % (Manual) Monocytes % (Manual) Seg Neutrophils # 14.8 H Seg Neutrophils # Man Lymphocytes # (Manual) Monocytes # (Manual) Eosinophils # (Manual) Basophils # (Manual) PT INR APTT ABG pH ABG pO2 ABG HCO3 ABG O2 Saturation ABG Base Excess ABG Hemoglobin Oxyhemoglobin Sodium Potassium Chloride Carbon Dioxide BUN 73 H Creatinine 1.4 H Glucose 119 H POC Glucose 124 H Lactic Acid Calcium Ionized Calcium Phosphorus Magnesium Total Bilirubin AST ALT Alkaline Phosphatase Ammonia Total Creatine Kinase CK-MB (CK-2) CK-MB (CK-2) Rel Index Total Protein Albumin Urine WBC (Auto) Vancomycin Trough Salicylates Acetaminophen Plasma/Serum Alcohol Crossmatch 12/27/19 12/27/19 12/27/19 05:45 11:45 17:29 WBC RBC Hgb Hct MCH RDW Plt Count Lymph % (Auto) [place] % (Auto) [place] # Baso # Seg Neutrophils % Seg Neuts % (Manual) Lymphocytes % (Manual) Monocytes % (Manual) Seg Neutrophils # Seg Neutrophils # Man Lymphocytes # (Manual) Monocytes # (Manual) Eosinophils # (Manual) Basophils # (Manual) PT INR APTT ABG pH ABG pO2 ABG HCO3 ABG O2 Saturation ABG Base Excess ABG Hemoglobin Oxyhemoglobin Sodium Potassium Chloride Carbon Dioxide BUN Creatinine Glucose POC Glucose 131 H 123 H 134 H Lactic Acid Calcium Ionized Calcium Phosphorus Magnesium Total Bilirubin AST ALT Alkaline Phosphatase Ammonia Total Creatine Kinase CK-MB (CK-2) CK-MB (CK-2) Rel Index Total Protein Albumin Urine WBC (Auto) Vancomycin Trough Salicylates Acetaminophen Plasma/Serum Alcohol Crossmatch 12/28/19 12/28/19 12/28/19 00:12 05:14 11:53 WBC RBC Hgb Hct MCH RDW Plt Count Lymph % (Auto) [place] % (Auto) [place] # Baso # Seg Neutrophils % Seg Neuts % (Manual) Lymphocytes % (Manual) Monocytes % (Manual) Seg Neutrophils # Seg Neutrophils # Man Lymphocytes # (Manual) Monocytes # (Manual) Eosinophils # (Manual) Basophils # (Manual) PT INR APTT ABG pH ABG pO2 ABG HCO3 ABG O2 Saturation ABG Base Excess ABG Hemoglobin Oxyhemoglobin Sodium Potassium Chloride Carbon Dioxide BUN Creatinine Glucose POC Glucose 138 H 130 H 146 H Lactic Acid Calcium Ionized Calcium Phosphorus Magnesium Total Bilirubin AST ALT Alkaline Phosphatase Ammonia Total Creatine Kinase CK-MB (CK-2) CK-MB (CK-2) Rel Index Total Protein Albumin Urine WBC (Auto) Vancomycin Trough Salicylates Acetaminophen Plasma/Serum Alcohol Crossmatch 12/28/19 12/29/19 12/29/19 17:39 00:01 18:11 WBC RBC Hgb Hct MCH RDW Plt Count Lymph % (Auto) [place] % (Auto) [place] # Baso # Seg Neutrophils % Seg Neuts % (Manual) Lymphocytes % (Manual) Monocytes % (Manual) Seg Neutrophils # Seg Neutrophils # Man Lymphocytes # (Manual) Monocytes # (Manual) Eosinophils # (Manual) Basophils # (Manual) PT INR APTT ABG pH ABG pO2 ABG HCO3 ABG O2 Saturation ABG Base Excess ABG Hemoglobin Oxyhemoglobin Sodium Potassium Chloride Carbon Dioxide BUN Creatinine Glucose POC Glucose 117 H 139 H 130 H Lactic Acid Calcium Ionized Calcium Phosphorus Magnesium Total Bilirubin AST ALT Alkaline Phosphatase Ammonia Total Creatine Kinase CK-MB (CK-2) CK-MB (CK-2) Rel Index Total Protein Albumin Urine WBC (Auto) Vancomycin Trough Salicylates Acetaminophen Plasma/Serum Alcohol Crossmatch 12/29/19 12/30/19 12/30/19 23:09 00:02 01:06 WBC 16.7 H RBC 2.91 L Hgb 8.2 L Hct 25.4 L MCH RDW 18.7 H Plt Count 708 H Lymph % (Auto) 9.4 L [place] % (Auto) [place] # 0.9 H Baso # Seg Neutrophils % 83.5 H Seg Neuts % (Manual) Lymphocytes % (Manual) Monocytes % (Manual) Seg Neutrophils # 14.0 H Seg Neutrophils # Man Lymphocytes # (Manual) Monocytes # (Manual) Eosinophils # (Manual) Basophils # (Manual) PT INR APTT ABG pH ABG pO2 ABG HCO3 ABG O2 Saturation ABG Base Excess ABG Hemoglobin Oxyhemoglobin Sodium Potassium Chloride Carbon Dioxide BUN Creatinine Glucose POC Glucose 120 H 114 H Lactic Acid Calcium Ionized Calcium Phosphorus Magnesium Total Bilirubin AST ALT Alkaline Phosphatase Ammonia Total Creatine Kinase CK-MB (CK-2) CK-MB (CK-2) Rel Index Total Protein Albumin Urine WBC (Auto) Vancomycin Trough Salicylates Acetaminophen Plasma/Serum Alcohol Crossmatch 12/30/19 12/30/19 12/30/19 01:06 04:23 05:18 WBC RBC Hgb Hct MCH RDW Plt Count Lymph % (Auto) [place] % (Auto) [place] # Baso # Seg Neutrophils % Seg Neuts % (Manual) Lymphocytes % (Manual) Monocytes % (Manual) Seg Neutrophils # Seg Neutrophils # Man Lymphocytes # (Manual) Monocytes # (Manual) Eosinophils # (Manual) Basophils # (Manual) PT INR APTT ABG pH ABG pO2 ABG HCO3 ABG O2 Saturation ABG Base Excess ABG Hemoglobin 8.3 L Oxyhemoglobin Sodium Potassium Chloride Carbon Dioxide BUN 70 H Creatinine Glucose 122 H POC Glucose 130 H Lactic Acid Calcium Ionized Calcium Phosphorus Magnesium Total Bilirubin AST ALT Alkaline Phosphatase Ammonia Total Creatine Kinase CK-MB (CK-2) CK-MB (CK-2) Rel Index Total Protein Albumin Urine WBC (Auto) Vancomycin Trough Salicylates Acetaminophen Plasma/Serum Alcohol Crossmatch 12/30/19 12/30/19 12/30/19 05:40 12:17 17:43 WBC RBC Hgb Hct MCH RDW Plt Count Lymph % (Auto) [place] % (Auto) [place] # Baso # Seg Neutrophils % Seg Neuts % (Manual) Lymphocytes % (Manual) Monocytes % (Manual) Seg Neutrophils # Seg Neutrophils # Man Lymphocytes # (Manual) Monocytes # (Manual) Eosinophils # (Manual) Basophils # (Manual) PT INR APTT ABG pH ABG pO2 ABG HCO3 ABG O2 Saturation ABG Base Excess ABG Hemoglobin Oxyhemoglobin Sodium Potassium Chloride Carbon Dioxide BUN Creatinine Glucose POC Glucose 135 H 132 H 118 H Lactic Acid Calcium Ionized Calcium Phosphorus Magnesium Total Bilirubin AST ALT Alkaline Phosphatase Ammonia Total Creatine Kinase CK-MB (CK-2) CK-MB (CK-2) Rel Index Total Protein Albumin Urine WBC (Auto) Vancomycin Trough Salicylates Acetaminophen Plasma/Serum Alcohol Crossmatch 12/30/19 12/31/19 12/31/19 23:29 05:19 17:50 WBC RBC Hgb Hct MCH RDW Plt Count Lymph % (Auto) [place] % (Auto) [place] # Baso # Seg Neutrophils % Seg Neuts % (Manual) Lymphocytes % (Manual) Monocytes % (Manual) Seg Neutrophils # Seg Neutrophils # Man Lymphocytes # (Manual) Monocytes # (Manual) Eosinophils # (Manual) Basophils # (Manual) PT INR APTT ABG pH ABG pO2 ABG HCO3 ABG O2 Saturation ABG Base Excess ABG Hemoglobin Oxyhemoglobin Sodium Potassium Chloride Carbon Dioxide BUN Creatinine Glucose POC Glucose 114 H 109 H 116 H Lactic Acid Calcium Ionized Calcium Phosphorus Magnesium Total Bilirubin AST ALT Alkaline Phosphatase Ammonia Total Creatine Kinase CK-MB (CK-2) CK-MB (CK-2) Rel Index Total Protein Albumin Urine WBC (Auto) Vancomycin Trough Salicylates Acetaminophen Plasma/Serum Alcohol Crossmatch 01/01/20 01/01/20 01/01/20 00:10 05:19 12:02 WBC RBC Hgb Hct MCH RDW Plt Count Lymph % (Auto) [place] % (Auto) [place] # Baso # Seg Neutrophils % Seg Neuts % (Manual) Lymphocytes % (Manual) Monocytes % (Manual) Seg Neutrophils # Seg Neutrophils # Man Lymphocytes # (Manual) Monocytes # (Manual) Eosinophils # (Manual) Basophils # (Manual) PT INR APTT ABG pH ABG pO2 ABG HCO3 ABG O2 Saturation ABG Base Excess ABG Hemoglobin Oxyhemoglobin Sodium Potassium Chloride Carbon Dioxide BUN Creatinine Glucose POC Glucose 131 H 122 H 136 H Lactic Acid Calcium Ionized Calcium Phosphorus Magnesium Total Bilirubin AST ALT Alkaline Phosphatase Ammonia Total Creatine Kinase CK-MB (CK-2) CK-MB (CK-2) Rel Index Total Protein Albumin Urine WBC (Auto) Vancomycin Trough Salicylates Acetaminophen Plasma/Serum Alcohol Crossmatch 01/02/20 01/02/20 01/02/20 00:24 05:36 11:41 WBC RBC Hgb Hct MCH RDW Plt Count Lymph % (Auto) [place] % (Auto) [place] # Baso # Seg Neutrophils % Seg Neuts % (Manual) Lymphocytes % (Manual) Monocytes % (Manual) Seg Neutrophils # Seg Neutrophils # Man Lymphocytes # (Manual) Monocytes # (Manual) Eosinophils # (Manual) Basophils # (Manual) PT INR APTT ABG pH ABG pO2 ABG HCO3 ABG O2 Saturation ABG Base Excess ABG Hemoglobin Oxyhemoglobin Sodium Potassium Chloride Carbon Dioxide BUN Creatinine Glucose POC Glucose 119 H 109 H 125 H Lactic Acid Calcium Ionized Calcium Phosphorus Magnesium Total Bilirubin AST ALT Alkaline Phosphatase Ammonia Total Creatine Kinase CK-MB (CK-2) CK-MB (CK-2) Rel Index Total Protein Albumin Urine WBC (Auto) Vancomycin Trough Salicylates Acetaminophen Plasma/Serum Alcohol Crossmatch 01/02/20 01/03/20 01/03/20 17:49 05:29 12:13 WBC RBC Hgb Hct MCH RDW Plt Count Lymph % (Auto) [place] % (Auto) [place] # Baso # Seg Neutrophils % Seg Neuts % (Manual) Lymphocytes % (Manual) Monocytes % (Manual) Seg Neutrophils # Seg Neutrophils # Man Lymphocytes # (Manual) Monocytes # (Manual) Eosinophils # (Manual) Basophils # (Manual) PT INR APTT ABG pH ABG pO2 ABG HCO3 ABG O2 Saturation ABG Base Excess ABG Hemoglobin Oxyhemoglobin Sodium Potassium Chloride Carbon Dioxide BUN Creatinine Glucose POC Glucose 130 H 132 H 113 H Lactic Acid Calcium Ionized Calcium Phosphorus Magnesium Total Bilirubin AST ALT Alkaline Phosphatase Ammonia Total Creatine Kinase CK-MB (CK-2) CK-MB (CK-2) Rel Index Total Protein Albumin Urine WBC (Auto) Vancomycin Trough Salicylates Acetaminophen Plasma/Serum Alcohol Crossmatch 01/03/20 01/04/20 01/04/20 17:32 00:19 05:26 WBC RBC Hgb Hct MCH RDW Plt Count Lymph % (Auto) [place] % (Auto) [place] # Baso # Seg Neutrophils % Seg Neuts % (Manual) Lymphocytes % (Manual) Monocytes % (Manual) Seg Neutrophils # Seg Neutrophils # Man Lymphocytes # (Manual) Monocytes # (Manual) Eosinophils # (Manual) Basophils # (Manual) PT INR APTT ABG pH ABG pO2 ABG HCO3 ABG O2 Saturation ABG Base Excess ABG Hemoglobin Oxyhemoglobin Sodium Potassium Chloride Carbon Dioxide BUN Creatinine Glucose POC Glucose 127 H 141 H 129 H Lactic Acid Calcium Ionized Calcium Phosphorus Magnesium Total Bilirubin AST ALT Alkaline Phosphatase Ammonia Total Creatine Kinase CK-MB (CK-2) CK-MB (CK-2) Rel Index Total Protein Albumin Urine WBC (Auto) Vancomycin Trough Salicylates Acetaminophen Plasma/Serum Alcohol Crossmatch 01/04/20 01/04/20 01/05/20 11:39 17:29 05:22 WBC RBC Hgb Hct MCH RDW Plt Count Lymph % (Auto) [place] % (Auto) [place] # Baso # Seg Neutrophils % Seg Neuts % (Manual) Lymphocytes % (Manual) Monocytes % (Manual) Seg Neutrophils # Seg Neutrophils # Man Lymphocytes # (Manual) Monocytes # (Manual) Eosinophils # (Manual) Basophils # (Manual) PT INR APTT ABG pH ABG pO2 ABG HCO3 ABG O2 Saturation ABG Base Excess ABG Hemoglobin Oxyhemoglobin Sodium Potassium Chloride Carbon Dioxide BUN Creatinine Glucose POC Glucose 167 H 132 H 121 H Lactic Acid Calcium Ionized Calcium Phosphorus Magnesium Total Bilirubin AST ALT Alkaline Phosphatase Ammonia Total Creatine Kinase CK-MB (CK-2) CK-MB (CK-2) Rel Index Total Protein Albumin Urine WBC (Auto) Vancomycin Trough Salicylates Acetaminophen Plasma/Serum Alcohol Crossmatch 01/05/20 01/05/20 01/05/20 12:25 17:40 18:06 WBC RBC Hgb Hct MCH RDW Plt Count Lymph % (Auto) [place] % (Auto) [place] # Baso # Seg Neutrophils % Seg Neuts % (Manual) Lymphocytes % (Manual) Monocytes % (Manual) Seg Neutrophils # Seg Neutrophils # Man Lymphocytes # (Manual) Monocytes # (Manual) Eosinophils # (Manual) Basophils # (Manual) PT INR APTT ABG pH 7.472 H ABG pO2 99.2 H ABG HCO3 ABG O2 Saturation ABG Base Excess ABG Hemoglobin 7.8 L Oxyhemoglobin Sodium Potassium Chloride Carbon Dioxide BUN Creatinine Glucose POC Glucose 106 H 110 H Lactic Acid Calcium Ionized Calcium Phosphorus Magnesium Total Bilirubin AST ALT Alkaline Phosphatase Ammonia Total Creatine Kinase CK-MB (CK-2) CK-MB (CK-2) Rel Index Total Protein Albumin Urine WBC (Auto) Vancomycin Trough Salicylates Acetaminophen Plasma/Serum Alcohol Crossmatch 01/06/20 01/06/20 01/06/20 00:11 05:16 11:30 WBC RBC Hgb Hct MCH RDW Plt Count Lymph % (Auto) [place] % (Auto) [place] # Baso # Seg Neutrophils % Seg Neuts % (Manual) Lymphocytes % (Manual) Monocytes % (Manual) Seg Neutrophils # Seg Neutrophils # Man Lymphocytes # (Manual) Monocytes # (Manual) Eosinophils # (Manual) Basophils # (Manual) PT INR APTT ABG pH ABG pO2 ABG HCO3 ABG O2 Saturation ABG Base Excess ABG Hemoglobin Oxyhemoglobin Sodium Potassium Chloride Carbon Dioxide BUN Creatinine Glucose POC Glucose 108 H 124 H 125 H Lactic Acid Calcium Ionized Calcium Phosphorus Magnesium Total Bilirubin AST ALT Alkaline Phosphatase Ammonia Total Creatine Kinase CK-MB (CK-2) CK-MB (CK-2) Rel Index Total Protein Albumin Urine WBC (Auto) Vancomycin Trough Salicylates Acetaminophen Plasma/Serum Alcohol Crossmatch 01/06/20 01/06/20 01/07/20 17:53 23:51 04:12 WBC 16.5 H RBC 3.29 L Hgb 9.3 L Hct 28.1 L MCH RDW 18.2 H Plt Count 526 H Lymph % (Auto) 8.4 L [place] % (Auto) [place] # 1.0 H Baso # Seg Neutrophils % 84.4 H Seg Neuts % (Manual) Lymphocytes % (Manual) Monocytes % (Manual) Seg Neutrophils # 13.9 H Seg Neutrophils # Man Lymphocytes # (Manual) Monocytes # (Manual) Eosinophils # (Manual) Basophils # (Manual) PT INR APTT ABG pH ABG pO2 ABG HCO3 ABG O2 Saturation ABG Base Excess ABG Hemoglobin Oxyhemoglobin Sodium Potassium Chloride Carbon Dioxide BUN Creatinine Glucose POC Glucose 166 H 128 H Lactic Acid Calcium Ionized Calcium Phosphorus Magnesium Total Bilirubin AST ALT Alkaline Phosphatase Ammonia Total Creatine Kinase CK-MB (CK-2) CK-MB (CK-2) Rel Index Total Protein Albumin Urine WBC (Auto) Vancomycin Trough Salicylates Acetaminophen Plasma/Serum Alcohol Crossmatch 01/07/20 01/07/20 01/07/20 04:12 04:45 11:51 WBC RBC Hgb Hct MCH RDW Plt Count Lymph % (Auto) [place] % (Auto) [place] # Baso # Seg Neutrophils % Seg Neuts % (Manual) Lymphocytes % (Manual) Monocytes % (Manual) Seg Neutrophils # Seg Neutrophils # Man Lymphocytes # (Manual) Monocytes # (Manual) Eosinophils # (Manual) Basophils # (Manual) PT INR APTT ABG pH ABG pO2 ABG HCO3 ABG O2 Saturation ABG Base Excess ABG Hemoglobin Oxyhemoglobin Sodium 136 L Potassium Chloride Carbon Dioxide 21 L BUN 44 H Creatinine 0.6 L Glucose 124 H POC Glucose 134 H 138 H Lactic Acid Calcium Ionized Calcium Phosphorus Magnesium Total Bilirubin AST ALT Alkaline Phosphatase Ammonia Total Creatine Kinase CK-MB (CK-2) CK-MB (CK-2) Rel Index Total Protein Albumin Urine WBC (Auto) Vancomycin Trough Salicylates Acetaminophen Plasma/Serum Alcohol Crossmatch 01/07/20 01/08/20 01/08/20 17:36 00:33 05:29 WBC RBC Hgb Hct MCH RDW Plt Count Lymph % (Auto) [place] % (Auto) [place] # Baso # Seg Neutrophils % Seg Neuts % (Manual) Lymphocytes % (Manual) Monocytes % (Manual) Seg Neutrophils # Seg Neutrophils # Man Lymphocytes # (Manual) Monocytes # (Manual) Eosinophils # (Manual) Basophils # (Manual) PT INR APTT ABG pH ABG pO2 ABG HCO3 ABG O2 Saturation ABG Base Excess ABG Hemoglobin Oxyhemoglobin Sodium Potassium Chloride Carbon Dioxide BUN Creatinine Glucose POC Glucose 128 H 119 H 124 H Lactic Acid Calcium Ionized Calcium Phosphorus Magnesium Total Bilirubin AST ALT Alkaline Phosphatase Ammonia Total Creatine Kinase CK-MB (CK-2) CK-MB (CK-2) Rel Index Total Protein Albumin Urine WBC (Auto) Vancomycin Trough Salicylates Acetaminophen Plasma/Serum Alcohol Crossmatch 01/08/20 01/08/20 01/08/20 12:51 20:25 23:22 WBC RBC Hgb Hct MCH RDW Plt Count Lymph % (Auto) [place] % (Auto) [place] # Baso # Seg Neutrophils % Seg Neuts % (Manual) Lymphocytes % (Manual) Monocytes % (Manual) Seg Neutrophils # Seg Neutrophils # Man Lymphocytes # (Manual) Monocytes # (Manual) Eosinophils # (Manual) Basophils # (Manual) PT INR APTT ABG pH ABG pO2 132.2 H ABG HCO3 ABG O2 Saturation ABG Base Excess ABG Hemoglobin Oxyhemoglobin Sodium Potassium Chloride Carbon Dioxide BUN Creatinine Glucose POC Glucose 128 H 127 H Lactic Acid Calcium Ionized Calcium Phosphorus Magnesium Total Bilirubin AST ALT Alkaline Phosphatase Ammonia Total Creatine Kinase CK-MB (CK-2) CK-MB (CK-2) Rel Index Total Protein Albumin Urine WBC (Auto) Vancomycin Trough Salicylates Acetaminophen Plasma/Serum Alcohol Crossmatch 01/09/20 01/09/20 01/09/20 05:48 08:51 11:29 WBC RBC Hgb Hct MCH RDW Plt Count Lymph % (Auto) [place] % (Auto) [place] # Baso # Seg Neutrophils % Seg Neuts % (Manual) Lymphocytes % (Manual) Monocytes % (Manual) Seg Neutrophils # Seg Neutrophils # Man Lymphocytes # (Manual) Monocytes # (Manual) Eosinophils # (Manual) Basophils # (Manual) PT INR APTT ABG pH ABG pO2 94.3 H ABG HCO3 ABG O2 Saturation ABG Base Excess ABG Hemoglobin 9.5 L Oxyhemoglobin Sodium Potassium Chloride Carbon Dioxide BUN Creatinine Glucose POC Glucose 120 H 112 H Lactic Acid Calcium Ionized Calcium Phosphorus Magnesium Total Bilirubin AST ALT Alkaline Phosphatase Ammonia Total Creatine Kinase CK-MB (CK-2) CK-MB (CK-2) Rel Index Total Protein Albumin Urine WBC (Auto) Vancomycin Trough Salicylates Acetaminophen Plasma/Serum Alcohol Crossmatch 01/09/20 01/10/20 01/10/20 17:57 05:17 12:28 WBC RBC Hgb Hct MCH RDW Plt Count Lymph % (Auto) [place] % (Auto) [place] # Baso # Seg Neutrophils % Seg Neuts % (Manual) Lymphocytes % (Manual) Monocytes % (Manual) Seg Neutrophils # Seg Neutrophils # Man Lymphocytes # (Manual) Monocytes # (Manual) Eosinophils # (Manual) Basophils # (Manual) PT INR APTT ABG pH ABG pO2 ABG HCO3 ABG O2 Saturation ABG Base Excess ABG Hemoglobin Oxyhemoglobin Sodium Potassium Chloride Carbon Dioxide BUN Creatinine Glucose POC Glucose 122 H 115 H 116 H Lactic Acid Calcium Ionized Calcium Phosphorus Magnesium Total Bilirubin AST ALT Alkaline Phosphatase Ammonia Total Creatine Kinase CK-MB (CK-2) CK-MB (CK-2) Rel Index Total Protein Albumin Urine WBC (Auto) Vancomycin Trough Salicylates Acetaminophen Plasma/Serum Alcohol Crossmatch 01/10/20 01/10/20 01/11/20 18:25 23:47 06:05 WBC RBC Hgb Hct MCH RDW Plt Count Lymph % (Auto) [place] % (Auto) [place] # Baso # Seg Neutrophils % Seg Neuts % (Manual) Lymphocytes % (Manual) Monocytes % (Manual) Seg Neutrophils # Seg Neutrophils # Man Lymphocytes # (Manual) Monocytes # (Manual) Eosinophils # (Manual) Basophils # (Manual) PT INR APTT ABG pH ABG pO2 ABG HCO3 ABG O2 Saturation ABG Base Excess ABG Hemoglobin Oxyhemoglobin Sodium Potassium Chloride Carbon Dioxide BUN Creatinine Glucose POC Glucose 123 H 115 H 151 H Lactic Acid Calcium Ionized Calcium Phosphorus Magnesium Total Bilirubin AST ALT Alkaline Phosphatase Ammonia Total Creatine Kinase CK-MB (CK-2) CK-MB (CK-2) Rel Index Total Protein Albumin Urine WBC (Auto) Vancomycin Trough Salicylates Acetaminophen Plasma/Serum Alcohol Crossmatch 01/11/20 01/11/20 01/11/20 07:00 07:00 12:27 WBC 11.8 H RBC 3.40 L Hgb 9.4 L Hct 29.3 L MCH RDW 18.1 H Plt Count 549 H Lymph % (Auto) [place] % (Auto) 9.1 H [place] # 1.1 H Baso # Seg Neutrophils % 73.3 H Seg Neuts % (Manual) Lymphocytes % (Manual) Monocytes % (Manual) Seg Neutrophils # 8.7 H Seg Neutrophils # Man Lymphocytes # (Manual) Monocytes # (Manual) Eosinophils # (Manual) Basophils # (Manual) PT INR APTT ABG pH ABG pO2 ABG HCO3 ABG O2 Saturation ABG Base Excess ABG Hemoglobin Oxyhemoglobin Sodium 134 L Potassium Chloride 97.7 L Carbon Dioxide 21 L BUN 38 H Creatinine 0.5 L Glucose 168 H POC Glucose 117 H Lactic Acid Calcium 10.5 H Ionized Calcium Phosphorus Magnesium Total Bilirubin AST ALT Alkaline Phosphatase Ammonia Total Creatine Kinase CK-MB (CK-2) CK-MB (CK-2) Rel Index Total Protein Albumin Urine WBC (Auto) Vancomycin Trough Salicylates Acetaminophen Plasma/Serum Alcohol Crossmatch 01/11/20 01/12/20 01/12/20 18:19 00:53 05:24 WBC RBC Hgb Hct MCH RDW Plt Count Lymph % (Auto) [place] % (Auto) [place] # Baso # Seg Neutrophils % Seg Neuts % (Manual) Lymphocytes % (Manual) Monocytes % (Manual) Seg Neutrophils # Seg Neutrophils # Man Lymphocytes # (Manual) Monocytes # (Manual) Eosinophils # (Manual) Basophils # (Manual) PT INR APTT ABG pH ABG pO2 ABG HCO3 ABG O2 Saturation ABG Base Excess ABG Hemoglobin Oxyhemoglobin Sodium Potassium Chloride Carbon Dioxide BUN Creatinine Glucose POC Glucose 126 H 126 H 128 H Lactic Acid Calcium Ionized Calcium Phosphorus Magnesium Total Bilirubin AST ALT Alkaline Phosphatase Ammonia Total Creatine Kinase CK-MB (CK-2) CK-MB (CK-2) Rel Index Total Protein Albumin Urine WBC (Auto) Vancomycin Trough Salicylates Acetaminophen Plasma/Serum Alcohol Crossmatch 01/12/20 01/12/20 01/13/20 13:39 18:02 00:27 WBC RBC Hgb Hct MCH RDW Plt Count Lymph % (Auto) [place] % (Auto) [place] # Baso # Seg Neutrophils % Seg Neuts % (Manual) Lymphocytes % (Manual) Monocytes % (Manual) Seg Neutrophils # Seg Neutrophils # Man Lymphocytes # (Manual) Monocytes # (Manual) Eosinophils # (Manual) Basophils # (Manual) PT INR APTT ABG pH ABG pO2 ABG HCO3 ABG O2 Saturation ABG Base Excess ABG Hemoglobin Oxyhemoglobin Sodium Potassium Chloride Carbon Dioxide BUN Creatinine Glucose POC Glucose 146 H 125 H 131 H Lactic Acid Calcium Ionized Calcium Phosphorus Magnesium Total Bilirubin AST ALT Alkaline Phosphatase Ammonia Total Creatine Kinase CK-MB (CK-2) CK-MB (CK-2) Rel Index Total Protein Albumin Urine WBC (Auto) Vancomycin Trough Salicylates Acetaminophen Plasma/Serum Alcohol Crossmatch 01/13/20 01/13/20 01/13/20 05:44 11:54 17:18 WBC RBC Hgb Hct MCH RDW Plt Count Lymph % (Auto) [place] % (Auto) [place] # Baso # Seg Neutrophils % Seg Neuts % (Manual) Lymphocytes % (Manual) Monocytes % (Manual) Seg Neutrophils # Seg Neutrophils # Man Lymphocytes # (Manual) Monocytes # (Manual) Eosinophils # (Manual) Basophils # (Manual) PT INR APTT ABG pH ABG pO2 ABG HCO3 ABG O2 Saturation ABG Base Excess ABG Hemoglobin Oxyhemoglobin Sodium Potassium Chloride Carbon Dioxide BUN Creatinine Glucose POC Glucose 148 H 140 H 130 H Lactic Acid Calcium Ionized Calcium Phosphorus Magnesium Total Bilirubin AST ALT Alkaline Phosphatase Ammonia Total Creatine Kinase CK-MB (CK-2) CK-MB (CK-2) Rel Index Total Protein Albumin Urine WBC (Auto) Vancomycin Trough Salicylates Acetaminophen Plasma/Serum Alcohol Crossmatch 01/14/20 01/14/20 01/14/20 00:16 05:45 12:19 WBC RBC Hgb Hct MCH RDW Plt Count Lymph % (Auto) [place] % (Auto) [place] # Baso # Seg Neutrophils % Seg Neuts % (Manual) Lymphocytes % (Manual) Monocytes % (Manual) Seg Neutrophils # Seg Neutrophils # Man Lymphocytes # (Manual) Monocytes # (Manual) Eosinophils # (Manual) Basophils # (Manual) PT INR APTT ABG pH ABG pO2 ABG HCO3 ABG O2 Saturation ABG Base Excess ABG Hemoglobin Oxyhemoglobin Sodium Potassium Chloride Carbon Dioxide BUN Creatinine Glucose POC Glucose 125 H 146 H 147 H Lactic Acid Calcium Ionized Calcium Phosphorus Magnesium Total Bilirubin AST ALT Alkaline Phosphatase Ammonia Total Creatine Kinase CK-MB (CK-2) CK-MB (CK-2) Rel Index Total Protein Albumin Urine WBC (Auto) Vancomycin Trough Salicylates Acetaminophen Plasma/Serum Alcohol Crossmatch 01/14/20 01/14/20 01/15/20 18:10 23:54 05:14 WBC RBC Hgb Hct MCH RDW Plt Count Lymph % (Auto) [place] % (Auto) [place] # Baso # Seg Neutrophils % Seg Neuts % (Manual) Lymphocytes % (Manual) Monocytes % (Manual) Seg Neutrophils # Seg Neutrophils # Man Lymphocytes # (Manual) Monocytes # (Manual) Eosinophils # (Manual) Basophils # (Manual) PT INR APTT ABG pH ABG pO2 ABG HCO3 ABG O2 Saturation ABG Base Excess ABG Hemoglobin Oxyhemoglobin Sodium Potassium Chloride Carbon Dioxide BUN Creatinine Glucose POC Glucose 136 H 109 H 111 H Lactic Acid Calcium Ionized Calcium Phosphorus Magnesium Total Bilirubin AST ALT Alkaline Phosphatase Ammonia Total Creatine Kinase CK-MB (CK-2) CK-MB (CK-2) Rel Index Total Protein Albumin Urine WBC (Auto) Vancomycin Trough Salicylates Acetaminophen Plasma/Serum Alcohol Crossmatch 01/15/20 01/15/20 01/16/20 12:34 23:25 05:06 WBC RBC Hgb Hct MCH RDW Plt Count Lymph % (Auto) [place] % (Auto) [place] # Baso # Seg Neutrophils % Seg Neuts % (Manual) Lymphocytes % (Manual) Monocytes % (Manual) Seg Neutrophils # Seg Neutrophils # Man Lymphocytes # (Manual) Monocytes # (Manual) Eosinophils # (Manual) Basophils # (Manual) PT INR APTT ABG pH ABG pO2 ABG HCO3 ABG O2 Saturation ABG Base Excess ABG Hemoglobin Oxyhemoglobin Sodium Potassium Chloride Carbon Dioxide BUN Creatinine Glucose POC Glucose 131 H 120 H 121 H Lactic Acid Calcium Ionized Calcium Phosphorus Magnesium Total Bilirubin AST ALT Alkaline Phosphatase Ammonia Total Creatine Kinase CK-MB (CK-2) CK-MB (CK-2) Rel Index Total Protein Albumin Urine WBC (Auto) Vancomycin Trough Salicylates Acetaminophen Plasma/Serum Alcohol Crossmatch 01/16/20 01/16/20 01/17/20 12:15 23:46 05:32 WBC 13.6 H RBC 3.27 L Hgb 9.3 L Hct 28.5 L MCH RDW 17.0 H Plt Count 490 H Lymph % (Auto) 13.1 L [place] % (Auto) [place] # 1.0 H Baso # Seg Neutrophils % 77.5 H Seg Neuts % (Manual) Lymphocytes % (Manual) Monocytes % (Manual) Seg Neutrophils # 10.5 H Seg Neutrophils # Man Lymphocytes # (Manual) Monocytes # (Manual) Eosinophils # (Manual) Basophils # (Manual) PT INR APTT ABG pH ABG pO2 ABG HCO3 ABG O2 Saturation ABG Base Excess ABG Hemoglobin Oxyhemoglobin Sodium Potassium Chloride Carbon Dioxide BUN Creatinine Glucose POC Glucose 152 H 107 H Lactic Acid Calcium Ionized Calcium Phosphorus Magnesium Total Bilirubin AST ALT Alkaline Phosphatase Ammonia Total Creatine Kinase CK-MB (CK-2) CK-MB (CK-2) Rel Index Total Protein Albumin Urine WBC (Auto) Vancomycin Trough Salicylates Acetaminophen Plasma/Serum Alcohol Crossmatch 01/17/20 01/17/20 01/17/20 06:47 12:16 17:21 WBC RBC Hgb Hct MCH RDW Plt Count Lymph % (Auto) [place] % (Auto) [place] # Baso # Seg Neutrophils % Seg Neuts % (Manual) Lymphocytes % (Manual) Monocytes % (Manual) Seg Neutrophils # Seg Neutrophils # Man Lymphocytes # (Manual) Monocytes # (Manual) Eosinophils # (Manual) Basophils # (Manual) PT INR APTT ABG pH ABG pO2 ABG HCO3 ABG O2 Saturation ABG Base Excess ABG Hemoglobin Oxyhemoglobin Sodium Potassium Chloride Carbon Dioxide BUN Creatinine Glucose POC Glucose 112 H 145 H 150 H Lactic Acid Calcium Ionized Calcium Phosphorus Magnesium Total Bilirubin AST ALT Alkaline Phosphatase Ammonia Total Creatine Kinase CK-MB (CK-2) CK-MB (CK-2) Rel Index Total Protein Albumin Urine WBC (Auto) Vancomycin Trough Salicylates Acetaminophen Plasma/Serum Alcohol Crossmatch 01/17/20 01/18/20 01/18/20 23:34 05:47 12:43 WBC RBC Hgb Hct MCH RDW Plt Count Lymph % (Auto) [place] % (Auto) [place] # Baso # Seg Neutrophils % Seg Neuts % (Manual) Lymphocytes % (Manual) Monocytes % (Manual) Seg Neutrophils # Seg Neutrophils # Man Lymphocytes # (Manual) Monocytes # (Manual) Eosinophils # (Manual) Basophils # (Manual) PT INR APTT ABG pH ABG pO2 ABG HCO3 ABG O2 Saturation ABG Base Excess ABG Hemoglobin Oxyhemoglobin Sodium Potassium Chloride Carbon Dioxide BUN Creatinine Glucose POC Glucose 160 H 130 H 124 H Lactic Acid Calcium Ionized Calcium Phosphorus Magnesium Total Bilirubin AST ALT Alkaline Phosphatase Ammonia Total Creatine Kinase CK-MB (CK-2) CK-MB (CK-2) Rel Index Total Protein Albumin Urine WBC (Auto) Vancomycin Trough Salicylates Acetaminophen Plasma/Serum Alcohol Crossmatch 01/18/20 01/19/20 01/19/20 18:26 00:14 06:24 WBC RBC Hgb Hct MCH RDW Plt Count Lymph % (Auto) [place] % (Auto) [place] # Baso # Seg Neutrophils % Seg Neuts % (Manual) Lymphocytes % (Manual) Monocytes % (Manual) Seg Neutrophils # Seg Neutrophils # Man Lymphocytes # (Manual) Monocytes # (Manual) Eosinophils # (Manual) Basophils # (Manual) PT INR APTT ABG pH ABG pO2 ABG HCO3 ABG O2 Saturation ABG Base Excess ABG Hemoglobin Oxyhemoglobin Sodium Potassium Chloride Carbon Dioxide BUN Creatinine Glucose POC Glucose 119 H 114 H 144 H Lactic Acid Calcium Ionized Calcium Phosphorus Magnesium Total Bilirubin AST ALT Alkaline Phosphatase Ammonia Total Creatine Kinase CK-MB (CK-2) CK-MB (CK-2) Rel Index Total Protein Albumin Urine WBC (Auto) Vancomycin Trough Salicylates Acetaminophen Plasma/Serum Alcohol Crossmatch 01/19/20 01/19/20 01/20/20 12:24 17:50 12:06 WBC RBC Hgb Hct MCH RDW Plt Count Lymph % (Auto) [place] % (Auto) [place] # Baso # Seg Neutrophils % Seg Neuts % (Manual) Lymphocytes % (Manual) Monocytes % (Manual) Seg Neutrophils # Seg Neutrophils # Man Lymphocytes # (Manual) Monocytes # (Manual) Eosinophils # (Manual) Basophils # (Manual) PT INR APTT ABG pH ABG pO2 ABG HCO3 ABG O2 Saturation ABG Base Excess ABG Hemoglobin Oxyhemoglobin Sodium Potassium Chloride Carbon Dioxide BUN Creatinine Glucose POC Glucose 132 H 144 H 135 H Lactic Acid Calcium Ionized Calcium Phosphorus Magnesium Total Bilirubin AST ALT Alkaline Phosphatase Ammonia Total Creatine Kinase CK-MB (CK-2) CK-MB (CK-2) Rel Index Total Protein Albumin Urine WBC (Auto) Vancomycin Trough Salicylates Acetaminophen Plasma/Serum Alcohol Crossmatch 01/21/20 01/21/20 01/21/20 05:46 13:02 23:49 WBC RBC Hgb Hct MCH RDW Plt Count Lymph % (Auto) [place] % (Auto) [place] # Baso # Seg Neutrophils % Seg Neuts % (Manual) Lymphocytes % (Manual) Monocytes % (Manual) Seg Neutrophils # Seg Neutrophils # Man Lymphocytes # (Manual) Monocytes # (Manual) Eosinophils # (Manual) Basophils # (Manual) PT INR APTT ABG pH ABG pO2 ABG HCO3 ABG O2 Saturation ABG Base Excess ABG Hemoglobin Oxyhemoglobin Sodium Potassium Chloride Carbon Dioxide BUN Creatinine Glucose POC Glucose 114 H 136 H 120 H Lactic Acid Calcium Ionized Calcium Phosphorus Magnesium Total Bilirubin AST ALT Alkaline Phosphatase Ammonia Total Creatine Kinase CK-MB (CK-2) CK-MB (CK-2) Rel Index Total Protein Albumin Urine WBC (Auto) Vancomycin Trough Salicylates Acetaminophen Plasma/Serum Alcohol Crossmatch 01/22/20 01/22/20 01/22/20 05:41 11:44 16:31 WBC RBC Hgb Hct MCH RDW Plt Count Lymph % (Auto) [place] % (Auto) [place] # Baso # Seg Neutrophils % Seg Neuts % (Manual) Lymphocytes % (Manual) Monocytes % (Manual) Seg Neutrophils # Seg Neutrophils # Man Lymphocytes # (Manual) Monocytes # (Manual) Eosinophils # (Manual) Basophils # (Manual) PT INR APTT ABG pH ABG pO2 ABG HCO3 ABG O2 Saturation ABG Base Excess ABG Hemoglobin Oxyhemoglobin Sodium Potassium Chloride Carbon Dioxide BUN Creatinine Glucose POC Glucose 124 H 173 H 111 H Lactic Acid Calcium Ionized Calcium Phosphorus Magnesium Total Bilirubin AST ALT Alkaline Phosphatase Ammonia Total Creatine Kinase CK-MB (CK-2) CK-MB (CK-2) Rel Index Total Protein Albumin Urine WBC (Auto) Vancomycin Trough Salicylates Acetaminophen Plasma/Serum Alcohol Crossmatch 01/22/20 01/23/20 01/23/20 23:25 05:15 12:15 WBC RBC Hgb Hct MCH RDW Plt Count Lymph % (Auto) [place] % (Auto) [place] # Baso # Seg Neutrophils % Seg Neuts % (Manual) Lymphocytes % (Manual) Monocytes % (Manual) Seg Neutrophils # Seg Neutrophils # Man Lymphocytes # (Manual) Monocytes # (Manual) Eosinophils # (Manual) Basophils # (Manual) PT INR APTT ABG pH ABG pO2 ABG HCO3 ABG O2 Saturation ABG Base Excess ABG Hemoglobin Oxyhemoglobin Sodium Potassium Chloride Carbon Dioxide BUN Creatinine Glucose POC Glucose 134 H 117 H 129 H Lactic Acid Calcium Ionized Calcium Phosphorus Magnesium Total Bilirubin AST ALT Alkaline Phosphatase Ammonia Total Creatine Kinase CK-MB (CK-2) CK-MB (CK-2) Rel Index Total Protein Albumin Urine WBC (Auto) Vancomycin Trough Salicylates Acetaminophen Plasma/Serum Alcohol Crossmatch 01/23/20 01/23/20 01/23/20 16:58 21:17 23:47 WBC RBC Hgb Hct MCH RDW Plt Count Lymph % (Auto) [place] % (Auto) [place] # Baso # Seg Neutrophils % Seg Neuts % (Manual) Lymphocytes % (Manual) Monocytes % (Manual) Seg Neutrophils # Seg Neutrophils # Man Lymphocytes # (Manual) Monocytes # (Manual) Eosinophils # (Manual) Basophils # (Manual) PT INR APTT ABG pH ABG pO2 ABG HCO3 ABG O2 Saturation ABG Base Excess ABG Hemoglobin Oxyhemoglobin Sodium Potassium Chloride Carbon Dioxide BUN Creatinine Glucose POC Glucose 156 H 185 H 156 H Lactic Acid Calcium Ionized Calcium Phosphorus Magnesium Total Bilirubin AST ALT Alkaline Phosphatase Ammonia Total Creatine Kinase CK-MB (CK-2) CK-MB (CK-2) Rel Index Total Protein Albumin Urine WBC (Auto) Vancomycin Trough Salicylates Acetaminophen Plasma/Serum Alcohol Crossmatch 01/24/20 01/24/20 01/24/20 04:47 04:47 05:59 WBC 17.8 H RBC 3.60 L Hgb Hct MCH RDW 16.2 H Plt Count 688 H Lymph % (Auto) 11.8 L [place] % (Auto) 7.5 H [place] # 1.3 H Baso # Seg Neutrophils % 79.9 H Seg Neuts % (Manual) Lymphocytes % (Manual) Monocytes % (Manual) Seg Neutrophils # 14.2 H Seg Neutrophils # Man Lymphocytes # (Manual) Monocytes # (Manual) Eosinophils # (Manual) Basophils # (Manual) PT INR APTT ABG pH ABG pO2 ABG HCO3 ABG O2 Saturation ABG Base Excess ABG Hemoglobin Oxyhemoglobin Sodium 131 L Potassium Chloride 91.2 L Carbon Dioxide BUN 22 H Creatinine 0.3 L Glucose 123 H POC Glucose 147 H Lactic Acid Calcium 10.9 H Ionized Calcium Phosphorus Magnesium Total Bilirubin AST ALT Alkaline Phosphatase Ammonia Total Creatine Kinase CK-MB (CK-2) CK-MB (CK-2) Rel Index Total Protein Albumin Urine WBC (Auto) Vancomycin Trough Salicylates Acetaminophen Plasma/Serum Alcohol Crossmatch 01/24/20 01/24/20 01/25/20 11:47 16:45 00:18 WBC RBC Hgb Hct MCH RDW Plt Count Lymph % (Auto) [place] % (Auto) [place] # Baso # Seg Neutrophils % Seg Neuts % (Manual) Lymphocytes % (Manual) Monocytes % (Manual) Seg Neutrophils # Seg Neutrophils # Man Lymphocytes # (Manual) Monocytes # (Manual) Eosinophils # (Manual) Basophils # (Manual) PT INR APTT ABG pH ABG pO2 ABG HCO3 ABG O2 Saturation ABG Base Excess ABG Hemoglobin Oxyhemoglobin Sodium Potassium Chloride Carbon Dioxide BUN Creatinine Glucose POC Glucose 114 H 108 H 119 H Lactic Acid Calcium Ionized Calcium Phosphorus Magnesium Total Bilirubin AST ALT Alkaline Phosphatase Ammonia Total Creatine Kinase CK-MB (CK-2) CK-MB (CK-2) Rel Index Total Protein Albumin Urine WBC (Auto) Vancomycin Trough Salicylates Acetaminophen Plasma/Serum Alcohol Crossmatch 01/25/20 01/25/20 01/25/20 07:18 11:58 16:56 WBC RBC Hgb Hct MCH RDW Plt Count Lymph % (Auto) [place] % (Auto) [place] # Baso # Seg Neutrophils % Seg Neuts % (Manual) Lymphocytes % (Manual) Monocytes % (Manual) Seg Neutrophils # Seg Neutrophils # Man Lymphocytes # (Manual) Monocytes # (Manual) Eosinophils # (Manual) Basophils # (Manual) PT INR APTT ABG pH ABG pO2 ABG HCO3 ABG O2 Saturation ABG Base Excess ABG Hemoglobin Oxyhemoglobin Sodium Potassium Chloride Carbon Dioxide BUN Creatinine Glucose POC Glucose 136 H 136 H 147 H Lactic Acid Calcium Ionized Calcium Phosphorus Magnesium Total Bilirubin AST ALT Alkaline Phosphatase Ammonia Total Creatine Kinase CK-MB (CK-2) CK-MB (CK-2) Rel Index Total Protein Albumin Urine WBC (Auto) Vancomycin Trough Salicylates Acetaminophen Plasma/Serum Alcohol Crossmatch 01/26/20 01/26/20 01/26/20 00:29 05:59 05:59 WBC 12.8 H RBC Hgb Hct MCH RDW 16.4 H Plt Count 743 H Lymph % (Auto) [place] % (Auto) [place] # 0.9 H Baso # Seg Neutrophils % 76.2 H Seg Neuts % (Manual) Lymphocytes % (Manual) Monocytes % (Manual) Seg Neutrophils # 9.8 H Seg Neutrophils # Man Lymphocytes # (Manual) Monocytes # (Manual) Eosinophils # (Manual) Basophils # (Manual) PT INR APTT ABG pH ABG pO2 ABG HCO3 ABG O2 Saturation ABG Base Excess ABG Hemoglobin Oxyhemoglobin Sodium 132 L Potassium Chloride 90.9 L Carbon Dioxide BUN 23 H Creatinine 0.4 L Glucose 122 H POC Glucose 107 H Lactic Acid Calcium 11.0 H Ionized Calcium Phosphorus Magnesium Total Bilirubin AST ALT Alkaline Phosphatase Ammonia Total Creatine Kinase CK-MB (CK-2) CK-MB (CK-2) Rel Index Total Protein Albumin Urine WBC (Auto) Vancomycin Trough Salicylates Acetaminophen Plasma/Serum Alcohol Crossmatch 01/26/20 01/26/20 01/26/20 06:27 12:06 16:49 WBC RBC Hgb Hct MCH RDW Plt Count Lymph % (Auto) [place] % (Auto) [place] # Baso # Seg Neutrophils % Seg Neuts % (Manual) Lymphocytes % (Manual) Monocytes % (Manual) Seg Neutrophils # Seg Neutrophils # Man Lymphocytes # (Manual) Monocytes # (Manual) Eosinophils # (Manual) Basophils # (Manual) PT INR APTT ABG pH ABG pO2 ABG HCO3 ABG O2 Saturation ABG Base Excess ABG Hemoglobin Oxyhemoglobin Sodium Potassium Chloride Carbon Dioxide BUN Creatinine Glucose POC Glucose 132 H 132 H 110 H Lactic Acid Calcium Ionized Calcium Phosphorus Magnesium Total Bilirubin AST ALT Alkaline Phosphatase Ammonia Total Creatine Kinase CK-MB (CK-2) CK-MB (CK-2) Rel Index Total Protein Albumin Urine WBC (Auto) Vancomycin Trough Salicylates Acetaminophen Plasma/Serum Alcohol Crossmatch 01/27/20 01/27/20 01/27/20 00:08 11:49 16:24 WBC RBC Hgb Hct MCH RDW Plt Count Lymph % (Auto) [place] % (Auto) [place] # Baso # Seg Neutrophils % Seg Neuts % (Manual) Lymphocytes % (Manual) Monocytes % (Manual) Seg Neutrophils # Seg Neutrophils # Man Lymphocytes # (Manual) Monocytes # (Manual) Eosinophils # (Manual) Basophils # (Manual) PT INR APTT ABG pH ABG pO2 ABG HCO3 ABG O2 Saturation ABG Base Excess ABG Hemoglobin Oxyhemoglobin Sodium Potassium Chloride Carbon Dioxide BUN Creatinine Glucose POC Glucose 107 H 119 H 129 H Lactic Acid Calcium Ionized Calcium Phosphorus Magnesium Total Bilirubin AST ALT Alkaline Phosphatase Ammonia Total Creatine Kinase CK-MB (CK-2) CK-MB (CK-2) Rel Index Total Protein Albumin Urine WBC (Auto) Vancomycin Trough Salicylates Acetaminophen Plasma/Serum Alcohol Crossmatch 01/27/20 01/28/20 01/28/20 18:28 01:00 06:22 WBC RBC Hgb Hct MCH RDW Plt Count Lymph % (Auto) [place] % (Auto) [place] # Baso # Seg Neutrophils % Seg Neuts % (Manual) Lymphocytes % (Manual) Monocytes % (Manual) Seg Neutrophils # Seg Neutrophils # Man Lymphocytes # (Manual) Monocytes # (Manual) Eosinophils # (Manual) Basophils # (Manual) PT INR APTT ABG pH ABG pO2 ABG HCO3 ABG O2 Saturation ABG Base Excess ABG Hemoglobin Oxyhemoglobin Sodium Potassium Chloride Carbon Dioxide BUN Creatinine Glucose POC Glucose 126 H 121 H 114 H Lactic Acid Calcium Ionized Calcium Phosphorus Magnesium Total Bilirubin AST ALT Alkaline Phosphatase Ammonia Total Creatine Kinase CK-MB (CK-2) CK-MB (CK-2) Rel Index Total Protein Albumin Urine WBC (Auto) Vancomycin Trough Salicylates Acetaminophen Plasma/Serum Alcohol Crossmatch 01/28/20 01/28/20 01/29/20 11:47 18:00 00:05 WBC RBC Hgb Hct MCH RDW Plt Count Lymph % (Auto) [place] % (Auto) [place] # Baso # Seg Neutrophils % Seg Neuts % (Manual) Lymphocytes % (Manual) Monocytes % (Manual) Seg Neutrophils # Seg Neutrophils # Man Lymphocytes # (Manual) Monocytes # (Manual) Eosinophils # (Manual) Basophils # (Manual) PT INR APTT ABG pH ABG pO2 ABG HCO3 ABG O2 Saturation ABG Base Excess ABG Hemoglobin Oxyhemoglobin Sodium Potassium Chloride Carbon Dioxide BUN Creatinine Glucose POC Glucose 106 H 117 H 127 H Lactic Acid Calcium Ionized Calcium Phosphorus Magnesium Total Bilirubin AST ALT Alkaline Phosphatase Ammonia Total Creatine Kinase CK-MB (CK-2) CK-MB (CK-2) Rel Index Total Protein Albumin Urine WBC (Auto) Vancomycin Trough Salicylates Acetaminophen Plasma/Serum Alcohol Crossmatch 01/29/20 01/29/20 01/29/20 06:04 11:40 16:38 WBC RBC Hgb Hct MCH RDW Plt Count Lymph % (Auto) [place] % (Auto) [place] # Baso # Seg Neutrophils % Seg Neuts % (Manual) Lymphocytes % (Manual) Monocytes % (Manual) Seg Neutrophils # Seg Neutrophils # Man Lymphocytes # (Manual) Monocytes # (Manual) Eosinophils # (Manual) Basophils # (Manual) PT INR APTT ABG pH ABG pO2 ABG HCO3 ABG O2 Saturation ABG Base Excess ABG Hemoglobin Oxyhemoglobin Sodium Potassium Chloride Carbon Dioxide BUN Creatinine Glucose POC Glucose 147 H 139 H 143 H Lactic Acid Calcium Ionized Calcium Phosphorus Magnesium Total Bilirubin AST ALT Alkaline Phosphatase Ammonia Total Creatine Kinase CK-MB (CK-2) CK-MB (CK-2) Rel Index Total Protein Albumin Urine WBC (Auto) Vancomycin Trough Salicylates Acetaminophen Plasma/Serum Alcohol Crossmatch 01/29/20 01/30/20 01/30/20 23:46 06:43 12:07 WBC RBC Hgb Hct MCH RDW Plt Count Lymph % (Auto) [place] % (Auto) [place] # Baso # Seg Neutrophils % Seg Neuts % (Manual) Lymphocytes % (Manual) Monocytes % (Manual) Seg Neutrophils # Seg Neutrophils # Man Lymphocytes # (Manual) Monocytes # (Manual) Eosinophils # (Manual) Basophils # (Manual) PT INR APTT ABG pH ABG pO2 ABG HCO3 ABG O2 Saturation ABG Base Excess ABG Hemoglobin Oxyhemoglobin Sodium Potassium Chloride Carbon Dioxide BUN Creatinine Glucose POC Glucose 122 H 122 H 134 H Lactic Acid Calcium Ionized Calcium Phosphorus Magnesium Total Bilirubin AST ALT Alkaline Phosphatase Ammonia Total Creatine Kinase CK-MB (CK-2) CK-MB (CK-2) Rel Index Total Protein Albumin Urine WBC (Auto) Vancomycin Trough Salicylates Acetaminophen Plasma/Serum Alcohol Crossmatch 01/30/20 01/31/20 01/31/20 17:59 00:52 05:54 WBC RBC Hgb Hct MCH RDW Plt Count Lymph % (Auto) [place] % (Auto) [place] # Baso # Seg Neutrophils % Seg Neuts % (Manual) Lymphocytes % (Manual) Monocytes % (Manual) Seg Neutrophils # Seg Neutrophils # Man Lymphocytes # (Manual) Monocytes # (Manual) Eosinophils # (Manual) Basophils # (Manual) PT INR APTT ABG pH ABG pO2 ABG HCO3 ABG O2 Saturation ABG Base Excess ABG Hemoglobin Oxyhemoglobin Sodium Potassium Chloride Carbon Dioxide BUN Creatinine Glucose POC Glucose 116 H 127 H 127 H Lactic Acid Calcium Ionized Calcium Phosphorus Magnesium Total Bilirubin AST ALT Alkaline Phosphatase Ammonia Total Creatine Kinase CK-MB (CK-2) CK-MB (CK-2) Rel Index Total Protein Albumin Urine WBC (Auto) Vancomycin Trough Salicylates Acetaminophen Plasma/Serum Alcohol Crossmatch 01/31/20 02/01/20 02/01/20 12:20 00:48 12:21 WBC RBC Hgb Hct MCH RDW Plt Count Lymph % (Auto) [place] % (Auto) [place] # Baso # Seg Neutrophils % Seg Neuts % (Manual) Lymphocytes % (Manual) Monocytes % (Manual) Seg Neutrophils # Seg Neutrophils # Man Lymphocytes # (Manual) Monocytes # (Manual) Eosinophils # (Manual) Basophils # (Manual) PT INR APTT ABG pH ABG pO2 ABG HCO3 ABG O2 Saturation ABG Base Excess ABG Hemoglobin Oxyhemoglobin Sodium Potassium Chloride Carbon Dioxide BUN Creatinine Glucose POC Glucose 126 H 154 H 123 H Lactic Acid Calcium Ionized Calcium Phosphorus Magnesium Total Bilirubin AST ALT Alkaline Phosphatase Ammonia Total Creatine Kinase CK-MB (CK-2) CK-MB (CK-2) Rel Index Total Protein Albumin Urine WBC (Auto) Vancomycin Trough Salicylates Acetaminophen Plasma/Serum Alcohol Crossmatch 02/01/20 02/02/20 02/02/20 23:58 06:08 11:50 WBC RBC Hgb Hct MCH RDW Plt Count Lymph % (Auto) [place] % (Auto) [place] # Baso # Seg Neutrophils % Seg Neuts % (Manual) Lymphocytes % (Manual) Monocytes % (Manual) Seg Neutrophils # Seg Neutrophils # Man Lymphocytes # (Manual) Monocytes # (Manual) Eosinophils # (Manual) Basophils # (Manual) PT INR APTT ABG pH ABG pO2 ABG HCO3 ABG O2 Saturation ABG Base Excess ABG Hemoglobin Oxyhemoglobin Sodium Potassium Chloride Carbon Dioxide BUN Creatinine Glucose POC Glucose 125 H 144 H 131 H Lactic Acid Calcium Ionized Calcium Phosphorus Magnesium Total Bilirubin AST ALT Alkaline Phosphatase Ammonia Total Creatine Kinase CK-MB (CK-2) CK-MB (CK-2) Rel Index Total Protein Albumin Urine WBC (Auto) Vancomycin Trough Salicylates Acetaminophen Plasma/Serum Alcohol Crossmatch 02/02/20 02/03/20 02/03/20 17:53 00:14 05:47 WBC RBC Hgb Hct MCH RDW Plt Count Lymph % (Auto) [place] % (Auto) [place] # Baso # Seg Neutrophils % Seg Neuts % (Manual) Lymphocytes % (Manual) Monocytes % (Manual) Seg Neutrophils # Seg Neutrophils # Man Lymphocytes # (Manual) Monocytes # (Manual) Eosinophils # (Manual) Basophils # (Manual) PT INR APTT ABG pH ABG pO2 ABG HCO3 ABG O2 Saturation ABG Base Excess ABG Hemoglobin Oxyhemoglobin Sodium Potassium Chloride Carbon Dioxide BUN Creatinine Glucose POC Glucose 108 H 122 H 118 H Lactic Acid Calcium Ionized Calcium Phosphorus Magnesium Total Bilirubin AST ALT Alkaline Phosphatase Ammonia Total Creatine Kinase CK-MB (CK-2) CK-MB (CK-2) Rel Index Total Protein Albumin Urine WBC (Auto) Vancomycin Trough Salicylates Acetaminophen Plasma/Serum Alcohol Crossmatch 02/03/20 02/03/20 02/03/20 05:59 05:59 11:49 WBC RBC 3.48 L Hgb Hct 29.9 L MCH RDW 16.2 H Plt Count 707 H Lymph % (Auto) [place] % (Auto) 9.3 H [place] # 0.9 H Baso # Seg Neutrophils % Seg Neuts % (Manual) Lymphocytes % (Manual) Monocytes % (Manual) Seg Neutrophils # Seg Neutrophils # Man Lymphocytes # (Manual) Monocytes # (Manual) Eosinophils # (Manual) Basophils # (Manual) PT INR APTT ABG pH ABG pO2 ABG HCO3 ABG O2 Saturation ABG Base Excess ABG Hemoglobin Oxyhemoglobin Sodium 136 L Potassium Chloride 93.4 L Carbon Dioxide BUN 20 H Creatinine 0.5 L Glucose 101 H POC Glucose 133 H Lactic Acid Calcium 10.8 H Ionized Calcium Phosphorus Magnesium Total Bilirubin AST ALT Alkaline Phosphatase Ammonia Total Creatine Kinase CK-MB (CK-2) CK-MB (CK-2) Rel Index Total Protein Albumin Urine WBC (Auto) Vancomycin Trough Salicylates Acetaminophen Plasma/Serum Alcohol Crossmatch 02/03/20 02/04/20 02/04/20 23:19 05:37 23:56 WBC RBC Hgb Hct MCH RDW Plt Count Lymph % (Auto) [place] % (Auto) [place] # Baso # Seg Neutrophils % Seg Neuts % (Manual) Lymphocytes % (Manual) Monocytes % (Manual) Seg Neutrophils # Seg Neutrophils # Man Lymphocytes # (Manual) Monocytes # (Manual) Eosinophils # (Manual) Basophils # (Manual) PT INR APTT ABG pH ABG pO2 ABG HCO3 ABG O2 Saturation ABG Base Excess ABG Hemoglobin Oxyhemoglobin Sodium Potassium Chloride Carbon Dioxide BUN Creatinine Glucose POC Glucose 135 H 108 H 158 H Lactic Acid Calcium Ionized Calcium Phosphorus Magnesium Total Bilirubin AST ALT Alkaline Phosphatase Ammonia Total Creatine Kinase CK-MB (CK-2) CK-MB (CK-2) Rel Index Total Protein Albumin Urine WBC (Auto) Vancomycin Trough Salicylates Acetaminophen Plasma/Serum Alcohol Crossmatch 02/05/20 02/05/20 02/06/20 05:33 23:24 05:50 WBC RBC Hgb Hct MCH RDW Plt Count Lymph % (Auto) [place] % (Auto) [place] # Baso # Seg Neutrophils % Seg Neuts % (Manual) Lymphocytes % (Manual) Monocytes % (Manual) Seg Neutrophils # Seg Neutrophils # Man Lymphocytes # (Manual) Monocytes # (Manual) Eosinophils # (Manual) Basophils # (Manual) PT INR APTT ABG pH ABG pO2 ABG HCO3 ABG O2 Saturation ABG Base Excess ABG Hemoglobin Oxyhemoglobin Sodium Potassium Chloride Carbon Dioxide BUN Creatinine Glucose POC Glucose 152 H 158 H 110 H Lactic Acid Calcium Ionized Calcium Phosphorus Magnesium Total Bilirubin AST ALT Alkaline Phosphatase Ammonia Total Creatine Kinase CK-MB (CK-2) CK-MB (CK-2) Rel Index Total Protein Albumin Urine WBC (Auto) Vancomycin Trough Salicylates Acetaminophen Plasma/Serum Alcohol Crossmatch 02/06/20 02/07/20 02/07/20 16:03 00:13 05:27 WBC RBC Hgb Hct MCH RDW Plt Count Lymph % (Auto) [place] % (Auto) [place] # Baso # Seg Neutrophils % Seg Neuts % (Manual) Lymphocytes % (Manual) Monocytes % (Manual) Seg Neutrophils # Seg Neutrophils # Man Lymphocytes # (Manual) Monocytes # (Manual) Eosinophils # (Manual) Basophils # (Manual) PT INR APTT ABG pH ABG pO2 ABG HCO3 ABG O2 Saturation ABG Base Excess ABG Hemoglobin Oxyhemoglobin Sodium Potassium Chloride Carbon Dioxide BUN Creatinine Glucose POC Glucose 130 H 115 H 115 H Lactic Acid Calcium Ionized Calcium Phosphorus Magnesium Total Bilirubin AST ALT Alkaline Phosphatase Ammonia Total Creatine Kinase CK-MB (CK-2) CK-MB (CK-2) Rel Index Total Protein Albumin Urine WBC (Auto) Vancomycin Trough Salicylates Acetaminophen Plasma/Serum Alcohol Crossmatch 02/07/20 02/07/20 02/08/20 11:42 17:23 00:37 WBC RBC Hgb Hct MCH RDW Plt Count Lymph % (Auto) [place] % (Auto) [place] # Baso # Seg Neutrophils % Seg Neuts % (Manual) Lymphocytes % (Manual) Monocytes % (Manual) Seg Neutrophils # Seg Neutrophils # Man Lymphocytes # (Manual) Monocytes # (Manual) Eosinophils # (Manual) Basophils # (Manual) PT INR APTT ABG pH ABG pO2 ABG HCO3 ABG O2 Saturation ABG Base Excess ABG Hemoglobin Oxyhemoglobin Sodium Potassium Chloride Carbon Dioxide BUN Creatinine Glucose POC Glucose 113 H 114 H 136 H Lactic Acid Calcium Ionized Calcium Phosphorus Magnesium Total Bilirubin AST ALT Alkaline Phosphatase Ammonia Total Creatine Kinase CK-MB (CK-2) CK-MB (CK-2) Rel Index Total Protein Albumin Urine WBC (Auto) Vancomycin Trough Salicylates Acetaminophen Plasma/Serum Alcohol Crossmatch 02/08/20 02/08/20 02/08/20 08:52 11:42 17:02 WBC RBC Hgb Hct MCH RDW Plt Count Lymph % (Auto) [place] % (Auto) [place] # Baso # Seg Neutrophils % Seg Neuts % (Manual) Lymphocytes % (Manual) Monocytes % (Manual) Seg Neutrophils # Seg Neutrophils # Man Lymphocytes # (Manual) Monocytes # (Manual) Eosinophils # (Manual) Basophils # (Manual) PT INR APTT ABG pH ABG pO2 ABG HCO3 ABG O2 Saturation ABG Base Excess ABG Hemoglobin Oxyhemoglobin Sodium 136 L Potassium Chloride 95.7 L Carbon Dioxide BUN 21 H Creatinine 0.4 L Glucose POC Glucose 128 H 145 H Lactic Acid Calcium 10.4 H Ionized Calcium Phosphorus Magnesium Total Bilirubin AST ALT Alkaline Phosphatase Ammonia Total Creatine Kinase CK-MB (CK-2) CK-MB (CK-2) Rel Index Total Protein Albumin Urine WBC (Auto) Vancomycin Trough Salicylates Acetaminophen Plasma/Serum Alcohol Crossmatch 02/09/20 02/09/20 02/09/20 01:05 11:52 16:19 WBC RBC Hgb Hct MCH RDW Plt Count Lymph % (Auto) [place] % (Auto) [place] # Baso # Seg Neutrophils % Seg Neuts % (Manual) Lymphocytes % (Manual) Monocytes % (Manual) Seg Neutrophils # Seg Neutrophils # Man Lymphocytes # (Manual) Monocytes # (Manual) Eosinophils # (Manual) Basophils # (Manual) PT INR APTT ABG pH ABG pO2 ABG HCO3 ABG O2 Saturation ABG Base Excess ABG Hemoglobin Oxyhemoglobin Sodium Potassium Chloride Carbon Dioxide BUN Creatinine Glucose POC Glucose 117 H 141 H 113 H Lactic Acid Calcium Ionized Calcium Phosphorus Magnesium Total Bilirubin AST ALT Alkaline Phosphatase Ammonia Total Creatine Kinase CK-MB (CK-2) CK-MB (CK-2) Rel Index Total Protein Albumin Urine WBC (Auto) Vancomycin Trough Salicylates Acetaminophen Plasma/Serum Alcohol Crossmatch 02/10/20 02/10/20 02/10/20 05:25 12:50 17:08 WBC RBC Hgb Hct MCH RDW Plt Count Lymph % (Auto) [place] % (Auto) [place] # Baso # Seg Neutrophils % Seg Neuts % (Manual) Lymphocytes % (Manual) Monocytes % (Manual) Seg Neutrophils # Seg Neutrophils # Man Lymphocytes # (Manual) Monocytes # (Manual) Eosinophils # (Manual) Basophils # (Manual) PT INR APTT ABG pH ABG pO2 ABG HCO3 ABG O2 Saturation ABG Base Excess ABG Hemoglobin Oxyhemoglobin Sodium Potassium Chloride Carbon Dioxide BUN Creatinine Glucose POC Glucose 136 H 127 H 111 H Lactic Acid Calcium Ionized Calcium Phosphorus Magnesium Total Bilirubin AST ALT Alkaline Phosphatase Ammonia Total Creatine Kinase CK-MB (CK-2) CK-MB (CK-2) Rel Index Total Protein Albumin Urine WBC (Auto) Vancomycin Trough Salicylates Acetaminophen Plasma/Serum Alcohol Crossmatch 02/10/20 02/11/20 02/11/20 23:55 06:11 12:07 WBC RBC Hgb Hct MCH RDW Plt Count Lymph % (Auto) [place] % (Auto) [place] # Baso # Seg Neutrophils % Seg Neuts % (Manual) Lymphocytes % (Manual) Monocytes % (Manual) Seg Neutrophils # Seg Neutrophils # Man Lymphocytes # (Manual) Monocytes # (Manual) Eosinophils # (Manual) Basophils # (Manual) PT INR APTT ABG pH ABG pO2 ABG HCO3 ABG O2 Saturation ABG Base Excess ABG Hemoglobin Oxyhemoglobin Sodium Potassium Chloride Carbon Dioxide BUN Creatinine Glucose POC Glucose 129 H 128 H 141 H Lactic Acid Calcium Ionized Calcium Phosphorus Magnesium Total Bilirubin AST ALT Alkaline Phosphatase Ammonia Total Creatine Kinase CK-MB (CK-2) CK-MB (CK-2) Rel Index Total Protein Albumin Urine WBC (Auto) Vancomycin Trough Salicylates Acetaminophen Plasma/Serum Alcohol Crossmatch 02/11/20 02/12/20 02/13/20 18:22 02:39 06:45 WBC RBC Hgb Hct MCH RDW Plt Count Lymph % (Auto) [place] % (Auto) [place] # Baso # Seg Neutrophils % Seg Neuts % (Manual) Lymphocytes % (Manual) Monocytes % (Manual) Seg Neutrophils # Seg Neutrophils # Man Lymphocytes # (Manual) Monocytes # (Manual) Eosinophils # (Manual) Basophils # (Manual) PT INR APTT ABG pH ABG pO2 ABG HCO3 ABG O2 Saturation ABG Base Excess ABG Hemoglobin Oxyhemoglobin Sodium Potassium Chloride Carbon Dioxide BUN Creatinine Glucose POC Glucose 118 H 107 H 124 H Lactic Acid Calcium Ionized Calcium Phosphorus Magnesium Total Bilirubin AST ALT Alkaline Phosphatase Ammonia Total Creatine Kinase CK-MB (CK-2) CK-MB (CK-2) Rel Index Total Protein Albumin Urine WBC (Auto) Vancomycin Trough Salicylates Acetaminophen Plasma/Serum Alcohol Crossmatch 02/13/20 02/13/20 02/14/20 12:26 18:19 00:21 WBC RBC Hgb Hct MCH RDW Plt Count Lymph % (Auto) [place] % (Auto) [place] # Baso # Seg Neutrophils % Seg Neuts % (Manual) Lymphocytes % (Manual) Monocytes % (Manual) Seg Neutrophils # Seg Neutrophils # Man Lymphocytes # (Manual) Monocytes # (Manual) Eosinophils # (Manual) Basophils # (Manual) PT INR APTT ABG pH ABG pO2 ABG HCO3 ABG O2 Saturation ABG Base Excess ABG Hemoglobin Oxyhemoglobin Sodium Potassium Chloride Carbon Dioxide BUN Creatinine Glucose POC Glucose 124 H 118 H 130 H Lactic Acid Calcium Ionized Calcium Phosphorus Magnesium Total Bilirubin AST ALT Alkaline Phosphatase Ammonia Total Creatine Kinase CK-MB (CK-2) CK-MB (CK-2) Rel Index Total Protein Albumin Urine WBC (Auto) Vancomycin Trough Salicylates Acetaminophen Plasma/Serum Alcohol Crossmatch 02/14/20 02/14/20 02/16/20 11:19 16:16 00:58 WBC RBC Hgb Hct MCH RDW Plt Count Lymph % (Auto) [place] % (Auto) [place] # Baso # Seg Neutrophils % Seg Neuts % (Manual) Lymphocytes % (Manual) Monocytes % (Manual) Seg Neutrophils # Seg Neutrophils # Man Lymphocytes # (Manual) Monocytes # (Manual) Eosinophils # (Manual) Basophils # (Manual) PT INR APTT ABG pH ABG pO2 ABG HCO3 ABG O2 Saturation ABG Base Excess ABG Hemoglobin Oxyhemoglobin Sodium Potassium Chloride Carbon Dioxide BUN Creatinine Glucose POC Glucose 135 H 119 H 121 H Lactic Acid Calcium Ionized Calcium Phosphorus Magnesium Total Bilirubin AST ALT Alkaline Phosphatase Ammonia Total Creatine Kinase CK-MB (CK-2) CK-MB (CK-2) Rel Index Total Protein Albumin Urine WBC (Auto) Vancomycin Trough Salicylates Acetaminophen Plasma/Serum Alcohol Crossmatch 02/16/20 02/16/20 02/16/20 12:12 18:22 23:51 WBC RBC Hgb Hct MCH RDW Plt Count Lymph % (Auto) [place] % (Auto) [place] # Baso # Seg Neutrophils % Seg Neuts % (Manual) Lymphocytes % (Manual) Monocytes % (Manual) Seg Neutrophils # Seg Neutrophils # Man Lymphocytes # (Manual) Monocytes # (Manual) Eosinophils # (Manual) Basophils # (Manual) PT INR APTT ABG pH ABG pO2 ABG HCO3 ABG O2 Saturation ABG Base Excess ABG Hemoglobin Oxyhemoglobin Sodium Potassium Chloride Carbon Dioxide BUN Creatinine Glucose POC Glucose 107 H 106 H 128 H Lactic Acid Calcium Ionized Calcium Phosphorus Magnesium Total Bilirubin AST ALT Alkaline Phosphatase Ammonia Total Creatine Kinase CK-MB (CK-2) CK-MB (CK-2) Rel Index Total Protein Albumin Urine WBC (Auto) Vancomycin Trough Salicylates Acetaminophen Plasma/Serum Alcohol Crossmatch 02/17/20 02/17/20 02/17/20 05:50 07:57 07:57 WBC 12.6 H RBC 3.52 L Hgb Hct MCH RDW 15.3 H Plt Count 643 H Lymph % (Auto) [place] % (Auto) 8.0 H [place] # 1.0 H Baso # Seg Neutrophils % Seg Neuts % (Manual) Lymphocytes % (Manual) Monocytes % (Manual) Seg Neutrophils # 8.5 H Seg Neutrophils # Man Lymphocytes # (Manual) Monocytes # (Manual) Eosinophils # (Manual) Basophils # (Manual) PT INR APTT ABG pH ABG pO2 ABG HCO3 ABG O2 Saturation ABG Base Excess ABG Hemoglobin Oxyhemoglobin Sodium Potassium Chloride 96.9 L Carbon Dioxide BUN 21 H Creatinine 0.4 L Glucose 113 H POC Glucose 116 H Lactic Acid Calcium 10.5 H Ionized Calcium Phosphorus Magnesium Total Bilirubin AST ALT Alkaline Phosphatase Ammonia Total Creatine Kinase CK-MB (CK-2) CK-MB (CK-2) Rel Index Total Protein Albumin Urine WBC (Auto) Vancomycin Trough Salicylates Acetaminophen Plasma/Serum Alcohol Crossmatch 02/17/20 02/17/20 02/18/20 12:05 18:16 00:13 WBC RBC Hgb Hct MCH RDW Plt Count Lymph % (Auto) [place] % (Auto) [place] # Baso # Seg Neutrophils % Seg Neuts % (Manual) Lymphocytes % (Manual) Monocytes % (Manual) Seg Neutrophils # Seg Neutrophils # Man Lymphocytes # (Manual) Monocytes # (Manual) Eosinophils # (Manual) Basophils # (Manual) PT INR APTT ABG pH ABG pO2 ABG HCO3 ABG O2 Saturation ABG Base Excess ABG Hemoglobin Oxyhemoglobin Sodium Potassium Chloride Carbon Dioxide BUN Creatinine Glucose POC Glucose 139 H 127 H 144 H Lactic Acid Calcium Ionized Calcium Phosphorus Magnesium Total Bilirubin AST ALT Alkaline Phosphatase Ammonia Total Creatine Kinase CK-MB (CK-2) CK-MB (CK-2) Rel Index Total Protein Albumin Urine WBC (Auto) Vancomycin Trough Salicylates Acetaminophen Plasma/Serum Alcohol Crossmatch 02/18/20 02/18/20 02/19/20 17:41 23:28 05:17 WBC RBC Hgb Hct MCH RDW Plt Count Lymph % (Auto) [place] % (Auto) [place] # Baso # Seg Neutrophils % Seg Neuts % (Manual) Lymphocytes % (Manual) Monocytes % (Manual) Seg Neutrophils # Seg Neutrophils # Man Lymphocytes # (Manual) Monocytes # (Manual) Eosinophils # (Manual) Basophils # (Manual) PT INR APTT ABG pH ABG pO2 ABG HCO3 ABG O2 Saturation ABG Base Excess ABG Hemoglobin Oxyhemoglobin Sodium Potassium Chloride Carbon Dioxide BUN Creatinine Glucose POC Glucose 118 H 166 H 116 H Lactic Acid Calcium Ionized Calcium Phosphorus Magnesium Total Bilirubin AST ALT Alkaline Phosphatase Ammonia Total Creatine Kinase CK-MB (CK-2) CK-MB (CK-2) Rel Index Total Protein Albumin Urine WBC (Auto) Vancomycin Trough Salicylates Acetaminophen Plasma/Serum Alcohol Crossmatch 02/19/20 02/19/20 02/20/20 12:33 17:02 00:12 WBC RBC Hgb Hct MCH RDW Plt Count Lymph % (Auto) [place] % (Auto) [place] # Baso # Seg Neutrophils % Seg Neuts % (Manual) Lymphocytes % (Manual) Monocytes % (Manual) Seg Neutrophils # Seg Neutrophils # Man Lymphocytes # (Manual) Monocytes # (Manual) Eosinophils # (Manual) Basophils # (Manual) PT INR APTT ABG pH ABG pO2 ABG HCO3 ABG O2 Saturation ABG Base Excess ABG Hemoglobin Oxyhemoglobin Sodium Potassium Chloride Carbon Dioxide BUN Creatinine Glucose POC Glucose 115 H 108 H 153 H Lactic Acid Calcium Ionized Calcium Phosphorus Magnesium Total Bilirubin AST ALT Alkaline Phosphatase Ammonia Total Creatine Kinase CK-MB (CK-2) CK-MB (CK-2) Rel Index Total Protein Albumin Urine WBC (Auto) Vancomycin Trough Salicylates Acetaminophen Plasma/Serum Alcohol Crossmatch 02/20/20 02/20/20 02/21/20 12:00 23:13 05:07 WBC RBC Hgb Hct MCH RDW Plt Count Lymph % (Auto) [place] % (Auto) [place] # Baso # Seg Neutrophils % Seg Neuts % (Manual) Lymphocytes % (Manual) Monocytes % (Manual) Seg Neutrophils # Seg Neutrophils # Man Lymphocytes # (Manual) Monocytes # (Manual) Eosinophils # (Manual) Basophils # (Manual) PT INR APTT ABG pH ABG pO2 ABG HCO3 ABG O2 Saturation ABG Base Excess ABG Hemoglobin Oxyhemoglobin Sodium Potassium Chloride Carbon Dioxide BUN Creatinine Glucose POC Glucose 171 H 129 H 116 H Lactic Acid Calcium Ionized Calcium Phosphorus Magnesium Total Bilirubin AST ALT Alkaline Phosphatase Ammonia Total Creatine Kinase CK-MB (CK-2) CK-MB (CK-2) Rel Index Total Protein Albumin Urine WBC (Auto) Vancomycin Trough Salicylates Acetaminophen Plasma/Serum Alcohol Crossmatch 02/21/20 02/22/20 02/22/20 12:15 00:42 06:30 WBC RBC Hgb Hct MCH RDW Plt Count Lymph % (Auto) [place] % (Auto) [place] # Baso # Seg Neutrophils % Seg Neuts % (Manual) Lymphocytes % (Manual) Monocytes % (Manual) Seg Neutrophils # Seg Neutrophils # Man Lymphocytes # (Manual) Monocytes # (Manual) Eosinophils # (Manual) Basophils # (Manual) PT INR APTT ABG pH ABG pO2 ABG HCO3 ABG O2 Saturation ABG Base Excess ABG Hemoglobin Oxyhemoglobin Sodium Potassium Chloride Carbon Dioxide BUN Creatinine Glucose POC Glucose 124 H 142 H 117 H Lactic Acid Calcium Ionized Calcium Phosphorus Magnesium Total Bilirubin AST ALT Alkaline Phosphatase Ammonia Total Creatine Kinase CK-MB (CK-2) CK-MB (CK-2) Rel Index Total Protein Albumin Urine WBC (Auto) Vancomycin Trough Salicylates Acetaminophen Plasma/Serum Alcohol Crossmatch 02/22/20 02/22/20 02/23/20 12:20 17:55 12:46 WBC RBC Hgb Hct MCH RDW Plt Count Lymph % (Auto) [place] % (Auto) [place] # Baso # Seg Neutrophils % Seg Neuts % (Manual) Lymphocytes % (Manual) Monocytes % (Manual) Seg Neutrophils # Seg Neutrophils # Man Lymphocytes # (Manual) Monocytes # (Manual) Eosinophils # (Manual) Basophils # (Manual) PT INR APTT ABG pH ABG pO2 ABG HCO3 ABG O2 Saturation ABG Base Excess ABG Hemoglobin Oxyhemoglobin Sodium Potassium Chloride Carbon Dioxide BUN Creatinine Glucose POC Glucose 121 H 157 H 112 H Lactic Acid Calcium Ionized Calcium Phosphorus Magnesium Total Bilirubin AST ALT Alkaline Phosphatase Ammonia Total Creatine Kinase CK-MB (CK-2) CK-MB (CK-2) Rel Index Total Protein Albumin Urine WBC (Auto) Vancomycin Trough Salicylates Acetaminophen Plasma/Serum Alcohol Crossmatch 02/23/20 02/24/20 02/24/20 16:47 00:38 07:00 WBC RBC Hgb Hct MCH RDW Plt Count Lymph % (Auto) [place] % (Auto) [place] # Baso # Seg Neutrophils % Seg Neuts % (Manual) Lymphocytes % (Manual) Monocytes % (Manual) Seg Neutrophils # Seg Neutrophils # Man Lymphocytes # (Manual) Monocytes # (Manual) Eosinophils # (Manual) Basophils # (Manual) PT INR APTT ABG pH ABG pO2 ABG HCO3 ABG O2 Saturation ABG Base Excess ABG Hemoglobin Oxyhemoglobin Sodium Potassium Chloride Carbon Dioxide BUN Creatinine Glucose POC Glucose 142 H 138 H 118 H Lactic Acid Calcium Ionized Calcium Phosphorus Magnesium Total Bilirubin AST ALT Alkaline Phosphatase Ammonia Total Creatine Kinase CK-MB (CK-2) CK-MB (CK-2) Rel Index Total Protein Albumin Urine WBC (Auto) Vancomycin Trough Salicylates Acetaminophen Plasma/Serum Alcohol Crossmatch 02/24/20 02/24/20 02/25/20 11:41 18:33 18:24 WBC RBC Hgb Hct MCH RDW Plt Count Lymph % (Auto) [place] % (Auto) [place] # Baso # Seg Neutrophils % Seg Neuts % (Manual) Lymphocytes % (Manual) Monocytes % (Manual) Seg Neutrophils # Seg Neutrophils # Man Lymphocytes # (Manual) Monocytes # (Manual) Eosinophils # (Manual) Basophils # (Manual) PT INR APTT ABG pH ABG pO2 ABG HCO3 ABG O2 Saturation ABG Base Excess ABG Hemoglobin Oxyhemoglobin Sodium Potassium Chloride Carbon Dioxide BUN Creatinine Glucose POC Glucose 152 H 126 H 120 H Lactic Acid Calcium Ionized Calcium Phosphorus Magnesium Total Bilirubin AST ALT Alkaline Phosphatase Ammonia Total Creatine Kinase CK-MB (CK-2) CK-MB (CK-2) Rel Index Total Protein Albumin Urine WBC (Auto) Vancomycin Trough Salicylates Acetaminophen Plasma/Serum Alcohol Crossmatch 02/25/20 02/26/20 02/26/20 23:40 05:46 11:32 WBC RBC Hgb Hct MCH RDW Plt Count Lymph % (Auto) [place] % (Auto) [place] # Baso # Seg Neutrophils % Seg Neuts % (Manual) Lymphocytes % (Manual) Monocytes % (Manual) Seg Neutrophils # Seg Neutrophils # Man Lymphocytes # (Manual) Monocytes # (Manual) Eosinophils # (Manual) Basophils # (Manual) PT INR APTT ABG pH ABG pO2 ABG HCO3 ABG O2 Saturation ABG Base Excess ABG Hemoglobin Oxyhemoglobin Sodium Potassium Chloride Carbon Dioxide BUN Creatinine Glucose POC Glucose 114 H 113 H 106 H Lactic Acid Calcium Ionized Calcium Phosphorus Magnesium Total Bilirubin AST ALT Alkaline Phosphatase Ammonia Total Creatine Kinase CK-MB (CK-2) CK-MB (CK-2) Rel Index Total Protein Albumin Urine WBC (Auto) Vancomycin Trough Salicylates Acetaminophen Plasma/Serum Alcohol Crossmatch 02/26/20 02/27/20 16:14 11:53 WBC RBC Hgb Hct MCH RDW Plt Count Lymph % (Auto) [place] % (Auto) [place] # Baso # Seg Neutrophils % Seg Neuts % (Manual) Lymphocytes % (Manual) Monocytes % (Manual) Seg Neutrophils # Seg Neutrophils # Man Lymphocytes # (Manual) Monocytes # (Manual) Eosinophils # (Manual) Basophils # (Manual) PT INR APTT ABG pH ABG pO2 ABG HCO3 ABG O2 Saturation ABG Base Excess ABG Hemoglobin Oxyhemoglobin Sodium Potassium Chloride Carbon Dioxide BUN Creatinine Glucose POC Glucose 123 H 134 H Lactic Acid Calcium Ionized Calcium Phosphorus Magnesium Total Bilirubin AST ALT Alkaline Phosphatase Ammonia Total Creatine Kinase CK-MB (CK-2) CK-MB (CK-2) Rel Index Total Protein Albumin Urine WBC (Auto) Vancomycin Trough Salicylates Acetaminophen Plasma/Serum Alcohol Crossmatch Allied health notes reviewed: RT
[2020-02-27] MEDS: ALPRAZolam 1 MG TAB PO PRN (18:55)
[2020-02-27] MEDS: QUEtiapine 100 MG TAB FEEDTUBE SCH (21:41)
[2020-02-28] MEDS: LEVALBUTEROL 0.63 MG/3 ML NEBU IH SCH ×5 (01:36→21:19)
[2020-02-28] MEDS: ACETYLCYSTEINE 20% 200 MG/1 ML *FOR INHALATION USE INHALATION SCH ×3 (01:36→21:19)
[2020-02-28 05:09] LABS: Basophils # (Auto) 0.1 K/mm3 (0.0-0.1); Basophils % (Auto) 0.5 % (0.0-1.8); Eosinophils # (Auto) 0.2 K/mm3 (0.0-0.4); Eosinophils % (Auto) 2.2 % (0.0-4.3); Hematocrit 31.5 % (30.3-42.9); Hemoglobin 10.5 gm/dl (10.1-14.3); Lymphocytes % (Auto) 18.7 % (13.4-35.0); Mean Corpuscular HGB Conc 33 % (30-34); Mean Corpuscular Volume 88 fl (79-97); Monocytes % (Auto) 9.4 % (0.0-7.3); Platelet Count 575 K/mm3 (140-440); Red Blood Count 3.58 M/mm3 (3.65-5.03); Red Cell Distribution Width 14.9 % (13.2-15.2)
[2020-02-28 05:20] LABS: BUN/Creatinine Ratio 46; Blood Urea Nitrogen 23 mg/dL (7-17); Calcium 10.1 mg/dL (8.4-10.2); Hemolysis Index 3
[2020-02-28] MEDS: ALPRAZolam 1 MG TAB PO PRN ×2 (07:41→18:07)
[2020-02-28] MEDS: GLYCOPYRROLATE 1 MG TAB PO SCH ×3 (07:49→22:45)
[2020-02-28] MEDS: NICOTINE 21 MG/24 HR PATCH TD SCH (09:30)
[2020-02-28] MEDS: hydrOXYzine PAMOATE 25 MG CAP PO SCH ×2 (09:30→22:45)
[2020-02-28] MEDS: LANSOPRAZOLE 30 MG SOLUTAB FEEDTUBE SCH (09:30)
[2020-02-28] MEDS: DOCUSATE SODIUM 100 MG/10 ML ORAL LIQD FEEDTUBE SCH ×2 (09:30→22:45)
[2020-02-28] MEDS: levETIRAcetam 500 MG/5 ML ORAL LIQD PO SCH ×2 (09:30→22:45)
[2020-02-28] MEDS: METOPROLOL TARTRATE 25 MG TAB PO SCH ×2 (09:31→22:45)
[2020-02-28] MEDS: MIRTAZAPINE 30 MG TAB PO SCH (09:31)
[2020-02-28] MEDS: SERTRALINE 50 MG TAB PO SCH (09:32)
--- NOTE | 2020-02-28 10:13 | Progress Note ---
Assessment and Plan Acute cardiopulmonary arrest with ROSC Acute hypoxemic respiratory failure s/p MVS s/p Tracheostomy Oropharyngeal dysphagia s/p PEG MRSA Bacteremia- treated MRSA pneumonia-treated Acute [id number] encephalopathy Metabolic acidosis/alcoholic acidosis/Lactic acidosis( resolved) Ischemic hepatitis Erythrocytosis Tobacco use disorder Alcohol use Disorder Continue all current care as documented below Continue all supportive care Fall precautions, remains impulsive Discharge planning -CBC, BMP prn -Replace and correct electrolytes as indicated -Trach care, airway clearance, secretion management(continue scopolamine patch and Robinul) -CXR, ABG prn -Weaning trials as tolerated- PMV and capping as tolerated -Continue contact isolation for MRSA -Trend WCC and temperature curve -PT/OT -Supportive transfusions as indicated for HgB <7g/dL -Continue aspiration precautions, HOB>40 -Continue enteric nutritional support at goal rate. -Continue to monitor glycemic control, with target blood glucose 140-180 mg/dL while critically ill. -Avoid hypoglycemia - Continue to wean supplemental oxygen for target O2 sat's > 90% -Continue thiamine, multivitamin and electrolyte replacement -Continue to avoid nephrotoxins, adjust all medications for GFR and CrCL - Continue bronchodilators with pulmonary hygiene - Continue to maintain of sleep-wake cycle, avoid delirium - Continue mobility protocol and skin assessment per protocol for pressure ulcer prevention - Continue to monitor for clinical seizures - continue other care per attending / other consultants CONDITION: FAIR PROGNOSIS: FAIR CODE STATUS: DNAR Subjective Date of service: 02/28/20 Principal diagnosis: Ac cardiopulmonary arrest; Ac hypoxemic resp failure; Acute encephalopathy Interval history: Patient is seen today for: Acute cardiopulmonary arrest with ROSC; Acute hypoxemic respiratory failure; Acute metabolic-toxic encephalopathy; Ischemic hepatitis; Leucocytosis with lactic acidosis; Tobacco use disorder; Alcohol use Disorder; s/p tracheostomy; s/p PEG Seen and examined at bedside; 24hour events reviewed; nursing and respiratory care staff consulted; no adverse overnight events reported to me; resting peacefully in bed; continues to tolerate ATP- ongoing secretions. No fevers, no vomiting, continues to tolerate tube feedings Awake and alert, responsive but episodes of confusion No new issues Objective Vital Signs - 12hr 02/27/20 02/28/20 02/28/20 23:14 02:18 04:30 Temperature 98.0 F 98.4 F Pulse Rate 107 H 105 H Pulse Rate [ 85 Anterior Bilateral Throughout] Respiratory 20 20 Rate Respiratory 18 Rate [Anterior Bilateral Throughout] Blood Pressure 108/71 110/75 O2 Sat by Pulse 100 97 Oximetry O2 Sat by Pulse Oximetry [ Assessment] 02/28/20 02/28/20 02/28/20 05:00 07:55 08:12 Temperature 97.9 F Pulse Rate 101 H Pulse Rate [ Anterior Bilateral Throughout] Respiratory 20 18 Rate Respiratory Rate [Anterior Bilateral Throughout] Blood Pressure 125/82 O2 Sat by Pulse 100 Oximetry O2 Sat by Pulse 98 Oximetry [ Assessment] Constitutional: no acute distress, alert, agitated, appears uncomfortable, other (Confused and agitating.) Eyes: non-icteric ENT: oropharynx moist, other (s/p trach) Neck: supple, no lymphadenopathy, no JVD Effort: normal Ascultation: Bilateral: diminished breath sounds, rhonchi Percussion: Bilateral: not dull Cardiovascular: regular rate and rhythm (tachycardia), other (S1,S2) Gastrointestinal: normoactive bowel sounds, soft, non-tender, non-distended Integumentary: normal Extremities: no cyanosis, no edema, pulses normal, no ischemia or petechiae Neurologic: non-focal exam, pupils equal and round, unable to assess Psychiatric: anxious, other (Agitated.) CBC and BMP: 02/28/20 03:40 02/28/20 03:40 ABG, PT/INR, D-dimer: ABG ABG pH 7.429 pH Units (7.350-7.450) 01/09/20 08:51 ABG pCO2 39.1 mm Hg 01/09/20 08:51 ABG pO2 94.3 mm Hg (80.0-90.0) H 01/09/20 08:51 ABG O2 Saturation 97.4 % (95.0-99.0) 01/09/20 08:51 PT/INR, D-dimer PT 17.0 Sec. (12.2-14.9) H 11/23/19 03:47 INR 1.36 (0.87-1.13) H 11/23/19 03:47 Abnormal lab findings: Abnormal Labs 11/22/19 11/22/19 11/22/19 23:17 23:18 23:27 WBC 21.2 H RBC 3.59 L Hgb 9.8 L Hct MCH 27 L RDW 18.6 H Plt Count 454 H Lymph % (Auto) Hitchcock % (Auto) Hitchcock # Baso # Seg Neutrophils % Seg Neuts % (Manual) 86.0 H Lymphocytes % (Manual) 9.0 L Monocytes % (Manual) Seg Neutrophils # Seg Neutrophils # Man 18.2 H Lymphocytes # (Manual) Monocytes # (Manual) 1.1 H Eosinophils # (Manual) Basophils # (Manual) PT INR APTT ABG pH ABG pO2 ABG HCO3 ABG O2 Saturation ABG Base Excess ABG Hemoglobin Oxyhemoglobin Sodium Potassium Chloride Carbon Dioxide BUN Creatinine Glucose POC Glucose 53 L Lactic Acid Calcium Ionized Calcium Phosphorus Magnesium Total Bilirubin AST ALT Alkaline Phosphatase Ammonia Total Creatine Kinase CK-MB (CK-2) CK-MB (CK-2) Rel Index Total Protein Albumin Urine WBC (Auto) 40.0 H Vancomycin Trough Salicylates Acetaminophen Plasma/Serum Alcohol Crossmatch 11/22/19 11/22/19 11/22/19 23:27 23:27 23:27 WBC RBC Hgb Hct MCH RDW Plt Count Lymph % (Auto) Hitchcock % (Auto) Hitchcock # Baso # Seg Neutrophils % Seg Neuts % (Manual) Lymphocytes % (Manual) Monocytes % (Manual) Seg Neutrophils # Seg Neutrophils # Man Lymphocytes # (Manual) Monocytes # (Manual) Eosinophils # (Manual) Basophils # (Manual) PT INR APTT ABG pH ABG pO2 ABG HCO3 ABG O2 Saturation ABG Base Excess ABG Hemoglobin Oxyhemoglobin Sodium Potassium 2.4 L* Chloride 85.1 L Carbon Dioxide 19 L BUN Creatinine 0.5 L Glucose 261 H POC Glucose Lactic Acid Calcium Ionized Calcium Phosphorus Magnesium Total Bilirubin AST 609 H ALT 152 H Alkaline Phosphatase 160 H Ammonia 117.0 H Total Creatine Kinase 139 H CK-MB (CK-2) 8.3 H CK-MB (CK-2) Rel Index 5.9 H Total Protein Albumin 3.6 L Urine WBC (Auto) Vancomycin Trough Salicylates < 0.3 L Acetaminophen Plasma/Serum Alcohol Crossmatch 11/22/19 11/22/19 11/23/19 23:27 23:27 01:10 WBC RBC Hgb Hct MCH RDW Plt Count Lymph % (Auto) Hitchcock % (Auto) Hitchcock # Baso # Seg Neutrophils % Seg Neuts % (Manual) Lymphocytes % (Manual) Monocytes % (Manual) Seg Neutrophils # Seg Neutrophils # Man Lymphocytes # (Manual) Monocytes # (Manual) Eosinophils # (Manual) Basophils # (Manual) PT INR APTT ABG pH 7.273 L ABG pO2 209.7 H ABG HCO3 ABG O2 Saturation 99.2 H ABG Base Excess -3.9 L ABG Hemoglobin 10.6 L Oxyhemoglobin 93.9 L Sodium Potassium Chloride Carbon Dioxide BUN Creatinine Glucose POC Glucose Lactic Acid Calcium Ionized Calcium Phosphorus Magnesium Total Bilirubin AST ALT Alkaline Phosphatase Ammonia Total Creatine Kinase CK-MB (CK-2) CK-MB (CK-2) Rel Index Total Protein Albumin Urine WBC (Auto) Vancomycin Trough Salicylates Acetaminophen < 5.0 L Plasma/Serum Alcohol 0.08 H Crossmatch 11/23/19 11/23/19 11/23/19 01:19 01:19 03:47 WBC RBC Hgb Hct MCH RDW Plt Count Lymph % (Auto) Hitchcock % (Auto) Hitchcock # Baso # Seg Neutrophils % Seg Neuts % (Manual) Lymphocytes % (Manual) Monocytes % (Manual) Seg Neutrophils # Seg Neutrophils # Man Lymphocytes # (Manual) Monocytes # (Manual) Eosinophils # (Manual) Basophils # (Manual) PT 16.3 H INR 1.29 H APTT ABG pH ABG pO2 ABG HCO3 ABG O2 Saturation ABG Base Excess ABG Hemoglobin Oxyhemoglobin Sodium Potassium Chloride Carbon Dioxide BUN Creatinine Glucose POC Glucose Lactic Acid 2.10 H* 5.00 H* Calcium Ionized Calcium Phosphorus Magnesium Total Bilirubin AST ALT Alkaline Phosphatase Ammonia Total Creatine Kinase CK-MB (CK-2) CK-MB (CK-2) Rel Index Total Protein Albumin Urine WBC (Auto) Vancomycin Trough Salicylates Acetaminophen Plasma/Serum Alcohol Crossmatch 11/23/19 11/23/19 11/23/19 03:47 03:47 04:53 WBC RBC Hgb 9.4 L Hct MCH RDW Plt Count Lymph % (Auto) Hitchcock % (Auto) Hitchcock # Baso # Seg Neutrophils % Seg Neuts % (Manual) Lymphocytes % (Manual) Monocytes % (Manual) Seg Neutrophils # Seg Neutrophils # Man Lymphocytes # (Manual) Monocytes # (Manual) Eosinophils # (Manual) Basophils # (Manual) PT 17.0 H INR 1.36 H APTT 128.2 H* ABG pH ABG pO2 ABG HCO3 ABG O2 Saturation ABG Base Excess ABG Hemoglobin Oxyhemoglobin Sodium Potassium Chloride Carbon Dioxide 18 L BUN Creatinine 0.5 L Glucose 105 H POC Glucose Lactic Acid Calcium 8.3 L Ionized Calcium Phosphorus 2.40 L Magnesium Total Bilirubin 1.30 H AST 761 H ALT 158 H Alkaline Phosphatase 143 H Ammonia Total Creatine Kinase CK-MB (CK-2) CK-MB (CK-2) Rel Index Total Protein Albumin 2.8 L Urine WBC (Auto) Vancomycin Trough Salicylates Acetaminophen Plasma/Serum Alcohol Crossmatch 11/23/19 11/23/19 11/23/19 05:12 06:32 06:32 WBC 16.8 H RBC 3.31 L Hgb 8.9 L Hct 28.7 L MCH 27 L RDW 18.6 H Plt Count Lymph % (Auto) Hitchcock % (Auto) Hitchcock # Baso # Seg Neutrophils % Seg Neuts % (Manual) 94.0 H Lymphocytes % (Manual) 1.0 L Monocytes % (Manual) Seg Neutrophils # Seg Neutrophils # Man 15.8 H Lymphocytes # (Manual) 0.2 L Monocytes # (Manual) Eosinophils # (Manual) Basophils # (Manual) PT INR APTT ABG pH ABG pO2 ABG HCO3 ABG O2 Saturation ABG Base Excess -3.2 L ABG Hemoglobin 9.0 L Oxyhemoglobin 93.6 L Sodium Potassium Chloride Carbon Dioxide BUN Creatinine Glucose POC Glucose Lactic Acid Calcium Ionized Calcium 4.5 L Phosphorus Magnesium Total Bilirubin AST ALT Alkaline Phosphatase Ammonia Total Creatine Kinase CK-MB (CK-2) CK-MB (CK-2) Rel Index Total Protein Albumin Urine WBC (Auto) Vancomycin Trough Salicylates Acetaminophen Plasma/Serum Alcohol Crossmatch 11/23/19 11/24/19 11/24/19 06:32 04:35 04:35 WBC RBC Hgb Hct MCH RDW Plt Count Lymph % (Auto) Hitchcock % (Auto) Hitchcock # Baso # Seg Neutrophils % Seg Neuts % (Manual) Lymphocytes % (Manual) Monocytes % (Manual) Seg Neutrophils # Seg Neutrophils # Man Lymphocytes # (Manual) Monocytes # (Manual) Eosinophils # (Manual) Basophils # (Manual) PT INR APTT ABG pH ABG pO2 ABG HCO3 ABG O2 Saturation ABG Base Excess ABG Hemoglobin Oxyhemoglobin Sodium Potassium Chloride Carbon Dioxide BUN Creatinine Glucose POC Glucose Lactic Acid 3.30 H* Calcium Ionized Calcium Phosphorus Magnesium 1.40 L Total Bilirubin AST ALT Alkaline Phosphatase Ammonia 98.0 H Total Creatine Kinase CK-MB (CK-2) CK-MB (CK-2) Rel Index Total Protein Albumin Urine WBC (Auto) Vancomycin Trough Salicylates Acetaminophen Plasma/Serum Alcohol Crossmatch 11/24/19 11/25/19 11/25/19 05:22 04:34 05:05 WBC 17.3 H RBC 2.88 L Hgb 7.8 L Hct 24.6 L MCH 27 L RDW 18.5 H Plt Count Lymph % (Auto) 7.7 L Hitchcock % (Auto) 9.7 H Hitchcock # 1.7 H Baso # Seg Neutrophils % 82.2 H Seg Neuts % (Manual) Lymphocytes % (Manual) Monocytes % (Manual) Seg Neutrophils # 14.2 H Seg Neutrophils # Man Lymphocytes # (Manual) Monocytes # (Manual) Eosinophils # (Manual) Basophils # (Manual) PT INR APTT ABG pH 7.475 H ABG pO2 ABG HCO3 29.4 H 32.3 H ABG O2 Saturation ABG Base Excess 5.4 H 6.9 H ABG Hemoglobin 9.0 L 10.6 L Oxyhemoglobin 94.3 L Sodium Potassium Chloride Carbon Dioxide BUN Creatinine Glucose POC Glucose Lactic Acid Calcium Ionized Calcium Phosphorus Magnesium Total Bilirubin AST ALT Alkaline Phosphatase Ammonia Total Creatine Kinase CK-MB (CK-2) CK-MB (CK-2) Rel Index Total Protein Albumin Urine WBC (Auto) Vancomycin Trough Salicylates Acetaminophen Plasma/Serum Alcohol Crossmatch 11/25/19 11/25/19 11/26/19 05:05 22:46 03:31 WBC RBC Hgb Hct MCH RDW Plt Count Lymph % (Auto) Hitchcock % (Auto) Hitchcock # Baso # Seg Neutrophils % Seg Neuts % (Manual) Lymphocytes % (Manual) Monocytes % (Manual) Seg Neutrophils # Seg Neutrophils # Man Lymphocytes # (Manual) Monocytes # (Manual) Eosinophils # (Manual) Basophils # (Manual) PT INR APTT ABG pH 7.459 H ABG pO2 ABG HCO3 34.2 H ABG O2 Saturation ABG Base Excess 9.4 H ABG Hemoglobin 7.6 L Oxyhemoglobin 94.8 L Sodium 152 H D 147 H Potassium 2.3 L* D 2.8 L* D Chloride 107.8 H Carbon Dioxide 31 H D 33 H BUN Creatinine 0.6 L 0.6 L Glucose 148 H 177 H POC Glucose Lactic Acid Calcium Ionized Calcium Phosphorus Magnesium Total Bilirubin AST 105 H ALT 71 H Alkaline Phosphatase 155 H Ammonia Total Creatine Kinase CK-MB (CK-2) CK-MB (CK-2) Rel Index Total Protein 5.2 L D Albumin 2.9 L Urine WBC (Auto) Vancomycin Trough Salicylates Acetaminophen Plasma/Serum Alcohol Crossmatch 11/26/19 11/26/19 11/27/19 08:24 08:24 04:20 WBC 12.0 H RBC 3.00 L Hgb 8.0 L 9.3 L Hct 25.9 L 29.7 L MCH 27 L RDW 18.5 H Plt Count Lymph % (Auto) Hitchcock % (Auto) Hitchcock # Baso # Seg Neutrophils % Seg Neuts % (Manual) 89.0 H Lymphocytes % (Manual) 4.0 L Monocytes % (Manual) Seg Neutrophils # Seg Neutrophils # Man 10.7 H Lymphocytes # (Manual) 0.5 L Monocytes # (Manual) Eosinophils # (Manual) Basophils # (Manual) PT INR APTT ABG pH ABG pO2 ABG HCO3 ABG O2 Saturation ABG Base Excess ABG Hemoglobin Oxyhemoglobin Sodium 146 H Potassium 3.4 L D Chloride Carbon Dioxide BUN Creatinine 0.5 L Glucose 165 H POC Glucose Lactic Acid Calcium Ionized Calcium Phosphorus Magnesium Total Bilirubin AST 57 H ALT Alkaline Phosphatase 166 H Ammonia Total Creatine Kinase CK-MB (CK-2) CK-MB (CK-2) Rel Index Total Protein Albumin 2.9 L Urine WBC (Auto) Vancomycin Trough Salicylates Acetaminophen Plasma/Serum Alcohol Crossmatch 11/27/19 11/27/19 11/27/19 04:28 04:28 04:42 WBC RBC Hgb Hct MCH RDW Plt Count Lymph % (Auto) Hitchcock % (Auto) Hitchcock # Baso # Seg Neutrophils % Seg Neuts % (Manual) Lymphocytes % (Manual) Monocytes % (Manual) Seg Neutrophils # Seg Neutrophils # Man Lymphocytes # (Manual) Monocytes # (Manual) Eosinophils # (Manual) Basophils # (Manual) PT INR APTT ABG pH 7.470 H ABG pO2 74.0 L ABG HCO3 33.8 H ABG O2 Saturation ABG Base Excess 9.1 H ABG Hemoglobin 8.7 L Oxyhemoglobin 94.7 L Sodium 146 H Potassium 2.9 L* Chloride Carbon Dioxide BUN 25 H Creatinine Glucose 213 H POC Glucose Lactic Acid Calcium Ionized Calcium Phosphorus 1.00 L Magnesium Total Bilirubin AST ALT Alkaline Phosphatase Ammonia Total Creatine Kinase CK-MB (CK-2) CK-MB (CK-2) Rel Index Total Protein Albumin Urine WBC (Auto) Vancomycin Trough Salicylates Acetaminophen Plasma/Serum Alcohol Crossmatch 11/27/19 11/27/19 11/27/19 05:37 12:20 15:46 WBC RBC Hgb Hct MCH RDW Plt Count Lymph % (Auto) Hitchcock % (Auto) Hitchcock # Baso # Seg Neutrophils % Seg Neuts % (Manual) Lymphocytes % (Manual) Monocytes % (Manual) Seg Neutrophils # Seg Neutrophils # Man Lymphocytes # (Manual) Monocytes # (Manual) Eosinophils # (Manual) Basophils # (Manual) PT INR APTT ABG pH ABG pO2 ABG HCO3 ABG O2 Saturation ABG Base Excess ABG Hemoglobin Oxyhemoglobin Sodium 146 H Potassium 3.5 L D Chloride Carbon Dioxide BUN 24 H Creatinine 0.6 L Glucose 187 H POC Glucose 117 H 220 H Lactic Acid Calcium Ionized Calcium Phosphorus Magnesium Total Bilirubin AST ALT Alkaline Phosphatase Ammonia Total Creatine Kinase CK-MB (CK-2) CK-MB (CK-2) Rel Index Total Protein Albumin Urine WBC (Auto) Vancomycin Trough Salicylates Acetaminophen Plasma/Serum Alcohol Crossmatch 11/27/19 11/28/19 11/28/19 17:28 05:00 05:02 WBC RBC Hgb Hct MCH RDW Plt Count Lymph % (Auto) Hitchcock % (Auto) Hitchcock # Baso # Seg Neutrophils % Seg Neuts % (Manual) Lymphocytes % (Manual) Monocytes % (Manual) Seg Neutrophils # Seg Neutrophils # Man Lymphocytes # (Manual) Monocytes # (Manual) Eosinophils # (Manual) Basophils # (Manual) PT INR APTT ABG pH ABG pO2 72.4 L ABG HCO3 33.6 H ABG O2 Saturation 94.1 L ABG Base Excess 7.3 H ABG Hemoglobin Oxyhemoglobin 91.8 L Sodium 146 H Potassium 3.3 L Chloride Carbon Dioxide BUN 25 H Creatinine 0.6 L Glucose 176 H POC Glucose 198 H Lactic Acid Calcium Ionized Calcium Phosphorus Magnesium Total Bilirubin AST ALT Alkaline Phosphatase Ammonia Total Creatine Kinase CK-MB (CK-2) CK-MB (CK-2) Rel Index Total Protein Albumin Urine WBC (Auto) Vancomycin Trough Salicylates Acetaminophen Plasma/Serum Alcohol Crossmatch 11/28/19 11/28/19 11/29/19 05:02 18:55 10:43 WBC 15.2 H 19.0 H RBC 3.06 L 3.01 L Hgb 8.3 L 8.3 L Hct 27.0 L 26.4 L MCH 27 L RDW 19.0 H 19.7 H Plt Count 479 H 611 H Lymph % (Auto) Hitchcock % (Auto) Hitchcock # Baso # Seg Neutrophils % Seg Neuts % (Manual) 92.0 H Lymphocytes % (Manual) 2.0 L Monocytes % (Manual) Seg Neutrophils # Seg Neutrophils # Man 14.0 H Lymphocytes # (Manual) 0.3 L Monocytes # (Manual) Eosinophils # (Manual) Basophils # (Manual) PT INR APTT ABG pH ABG pO2 ABG HCO3 ABG O2 Saturation ABG Base Excess ABG Hemoglobin Oxyhemoglobin Sodium Potassium Chloride Carbon Dioxide BUN Creatinine Glucose POC Glucose 138 H Lactic Acid Calcium Ionized Calcium Phosphorus Magnesium Total Bilirubin AST ALT Alkaline Phosphatase Ammonia Total Creatine Kinase CK-MB (CK-2) CK-MB (CK-2) Rel Index Total Protein Albumin Urine WBC (Auto) Vancomycin Trough Salicylates Acetaminophen Plasma/Serum Alcohol Crossmatch 11/29/19 11/29/19 11/29/19 10:43 12:27 19:25 WBC RBC Hgb Hct MCH RDW Plt Count Lymph % (Auto) Hitchcock % (Auto) Hitchcock # Baso # Seg Neutrophils % Seg Neuts % (Manual) Lymphocytes % (Manual) Monocytes % (Manual) Seg Neutrophils # Seg Neutrophils # Man Lymphocytes # (Manual) Monocytes # (Manual) Eosinophils # (Manual) Basophils # (Manual) PT INR APTT ABG pH ABG pO2 ABG HCO3 ABG O2 Saturation ABG Base Excess ABG Hemoglobin Oxyhemoglobin Sodium Potassium 2.8 L* Chloride Carbon Dioxide BUN 20 H Creatinine 0.5 L Glucose 121 H POC Glucose 128 H 120 H Lactic Acid Calcium Ionized Calcium Phosphorus Magnesium Total Bilirubin AST ALT Alkaline Phosphatase Ammonia Total Creatine Kinase CK-MB (CK-2) CK-MB (CK-2) Rel Index Total Protein Albumin Urine WBC (Auto) Vancomycin Trough Salicylates Acetaminophen Plasma/Serum Alcohol Crossmatch 11/29/19 11/30/19 11/30/19 23:46 04:10 05:02 WBC RBC Hgb Hct MCH RDW Plt Count Lymph % (Auto) Hitchcock % (Auto) Hitchcock # Baso # Seg Neutrophils % Seg Neuts % (Manual) Lymphocytes % (Manual) Monocytes % (Manual) Seg Neutrophils # Seg Neutrophils # Man Lymphocytes # (Manual) Monocytes # (Manual) Eosinophils # (Manual) Basophils # (Manual) PT INR APTT ABG pH ABG pO2 76.3 L ABG HCO3 32.5 H ABG O2 Saturation ABG Base Excess 6.9 H ABG Hemoglobin 8.0 L Oxyhemoglobin 92.6 L Sodium Potassium Chloride Carbon Dioxide BUN Creatinine Glucose POC Glucose 116 H 128 H Lactic Acid Calcium Ionized Calcium Phosphorus Magnesium Total Bilirubin AST ALT Alkaline Phosphatase Ammonia Total Creatine Kinase CK-MB (CK-2) CK-MB (CK-2) Rel Index Total Protein Albumin Urine WBC (Auto) Vancomycin Trough Salicylates Acetaminophen Plasma/Serum Alcohol Crossmatch 11/30/19 11/30/19 11/30/19 05:25 05:25 12:59 WBC 18.4 H RBC 3.10 L Hgb 8.5 L Hct 27.5 L MCH 27 L RDW 20.9 H Plt Count 691 H Lymph % (Auto) 7.1 L Hitchcock % (Auto) 7.7 H Hitchcock # 1.4 H Baso # Seg Neutrophils % 83.4 H Seg Neuts % (Manual) Lymphocytes % (Manual) Monocytes % (Manual) Seg Neutrophils # 15.4 H Seg Neutrophils # Man Lymphocytes # (Manual) Monocytes # (Manual) Eosinophils # (Manual) Basophils # (Manual) PT INR APTT ABG pH ABG pO2 ABG HCO3 ABG O2 Saturation ABG Base Excess ABG Hemoglobin Oxyhemoglobin Sodium 146 H Potassium Chloride 107.2 H Carbon Dioxide BUN Creatinine 0.5 L Glucose 132 H POC Glucose 124 H Lactic Acid Calcium Ionized Calcium Phosphorus Magnesium Total Bilirubin AST 246 H ALT 274 H Alkaline Phosphatase 203 H Ammonia Total Creatine Kinase CK-MB (CK-2) CK-MB (CK-2) Rel Index Total Protein 5.4 L Albumin 2.9 L Urine WBC (Auto) Vancomycin Trough Salicylates Acetaminophen Plasma/Serum Alcohol Crossmatch 11/30/19 12/01/19 12/01/19 17:53 00:05 05:10 WBC RBC Hgb Hct MCH RDW Plt Count Lymph % (Auto) Hitchcock % (Auto) Hitchcock # Baso # Seg Neutrophils % Seg Neuts % (Manual) Lymphocytes % (Manual) Monocytes % (Manual) Seg Neutrophils # Seg Neutrophils # Man Lymphocytes # (Manual) Monocytes # (Manual) Eosinophils # (Manual) Basophils # (Manual) PT INR APTT ABG pH ABG pO2 ABG HCO3 ABG O2 Saturation ABG Base Excess ABG Hemoglobin Oxyhemoglobin Sodium Potassium Chloride Carbon Dioxide BUN Creatinine Glucose POC Glucose 113 H 143 H 145 H Lactic Acid Calcium Ionized Calcium Phosphorus Magnesium Total Bilirubin AST ALT Alkaline Phosphatase Ammonia Total Creatine Kinase CK-MB (CK-2) CK-MB (CK-2) Rel Index Total Protein Albumin Urine WBC (Auto) Vancomycin Trough Salicylates Acetaminophen Plasma/Serum Alcohol Crossmatch 12/01/19 12/01/19 12/01/19 05:33 08:23 08:23 WBC 22.7 H RBC 2.88 L Hgb 7.9 L Hct 25.2 L MCH 27 L RDW 21.0 H Plt Count 732 H Lymph % (Auto) Hitchcock % (Auto) Hitchcock # Baso # Seg Neutrophils % Seg Neuts % (Manual) 91.0 H Lymphocytes % (Manual) 3.0 L Monocytes % (Manual) Seg Neutrophils # Seg Neutrophils # Man 20.7 H Lymphocytes # (Manual) 0.7 L Monocytes # (Manual) 1.1 H Eosinophils # (Manual) Basophils # (Manual) PT INR APTT ABG pH ABG pO2 68.6 L ABG HCO3 34.1 H ABG O2 Saturation ABG Base Excess 9.0 H ABG Hemoglobin 6.5 L Oxyhemoglobin 94.7 L Sodium Potassium Chloride Carbon Dioxide BUN Creatinine 0.5 L Glucose 125 H POC Glucose Lactic Acid Calcium Ionized Calcium Phosphorus Magnesium Total Bilirubin AST ALT Alkaline Phosphatase Ammonia Total Creatine Kinase CK-MB (CK-2) CK-MB (CK-2) Rel Index Total Protein Albumin Urine WBC (Auto) Vancomycin Trough Salicylates Acetaminophen Plasma/Serum Alcohol Crossmatch 12/01/19 12/01/19 12/01/19 13:21 17:54 20:59 WBC RBC Hgb Hct MCH RDW Plt Count Lymph % (Auto) Hitchcock % (Auto) Hitchcock # Baso # Seg Neutrophils % Seg Neuts % (Manual) Lymphocytes % (Manual) Monocytes % (Manual) Seg Neutrophils # Seg Neutrophils # Man Lymphocytes # (Manual) Monocytes # (Manual) Eosinophils # (Manual) Basophils # (Manual) PT INR APTT ABG pH ABG pO2 78.3 L ABG HCO3 33.8 H ABG O2 Saturation 94.9 L ABG Base Excess 7.9 H ABG Hemoglobin 11.5 L Oxyhemoglobin 92.3 L Sodium Potassium Chloride Carbon Dioxide BUN Creatinine Glucose POC Glucose 111 H 115 H Lactic Acid Calcium Ionized Calcium Phosphorus Magnesium Total Bilirubin AST ALT Alkaline Phosphatase Ammonia Total Creatine Kinase CK-MB (CK-2) CK-MB (CK-2) Rel Index Total Protein Albumin Urine WBC (Auto) Vancomycin Trough Salicylates Acetaminophen Plasma/Serum Alcohol Crossmatch 12/02/19 12/03/19 12/04/19 12:55 20:00 04:26 WBC 15.2 H RBC 2.69 L Hgb 7.4 L Hct 23.6 L MCH 27 L RDW 19.9 H Plt Count 838 H Lymph % (Auto) Hitchcock % (Auto) Hitchcock # Baso # Seg Neutrophils % Seg Neuts % (Manual) Lymphocytes % (Manual) Monocytes % (Manual) Seg Neutrophils # Seg Neutrophils # Man Lymphocytes # (Manual) Monocytes # (Manual) Eosinophils # (Manual) Basophils # (Manual) PT INR APTT ABG pH ABG pO2 68.3 L ABG HCO3 33.5 H ABG O2 Saturation 93.5 L ABG Base Excess 8.4 H ABG Hemoglobin 7.3 L Oxyhemoglobin 90.9 L Sodium Potassium Chloride Carbon Dioxide BUN Creatinine Glucose POC Glucose 107 H Lactic Acid Calcium Ionized Calcium Phosphorus Magnesium Total Bilirubin AST ALT Alkaline Phosphatase Ammonia Total Creatine Kinase CK-MB (CK-2) CK-MB (CK-2) Rel Index Total Protein Albumin Urine WBC (Auto) Vancomycin Trough Salicylates Acetaminophen Plasma/Serum Alcohol Crossmatch 12/04/19 12/04/19 12/04/19 04:26 07:45 12:02 WBC 15.9 H RBC 2.88 L Hgb 7.9 L Hct 25.1 L MCH RDW 20.4 H Plt Count 839 H Lymph % (Auto) 11.3 L Hitchcock % (Auto) 15.2 H Hitchcock # 2.4 H Baso # Seg Neutrophils % 72.4 H Seg Neuts % (Manual) Lymphocytes % (Manual) Monocytes % (Manual) Seg Neutrophils # 11.5 H Seg Neutrophils # Man Lymphocytes # (Manual) Monocytes # (Manual) Eosinophils # (Manual) Basophils # (Manual) PT INR APTT ABG pH ABG pO2 ABG HCO3 ABG O2 Saturation ABG Base Excess ABG Hemoglobin Oxyhemoglobin Sodium Potassium Chloride 96.5 L Carbon Dioxide BUN 21 H Creatinine 0.6 L Glucose 107 H POC Glucose 138 H Lactic Acid Calcium Ionized Calcium Phosphorus Magnesium Total Bilirubin AST ALT Alkaline Phosphatase Ammonia Total Creatine Kinase CK-MB (CK-2) CK-MB (CK-2) Rel Index Total Protein Albumin Urine WBC (Auto) Vancomycin Trough Salicylates Acetaminophen Plasma/Serum Alcohol Crossmatch 12/04/19 12/05/19 12/05/19 18:16 11:55 18:36 WBC RBC Hgb Hct MCH RDW Plt Count Lymph % (Auto) Hitchcock % (Auto) Hitchcock # Baso # Seg Neutrophils % Seg Neuts % (Manual) Lymphocytes % (Manual) Monocytes % (Manual) Seg Neutrophils # Seg Neutrophils # Man Lymphocytes # (Manual) Monocytes # (Manual) Eosinophils # (Manual) Basophils # (Manual) PT INR APTT ABG pH ABG pO2 ABG HCO3 ABG O2 Saturation ABG Base Excess ABG Hemoglobin Oxyhemoglobin Sodium Potassium Chloride Carbon Dioxide BUN Creatinine Glucose POC Glucose 135 H 125 H 135 H Lactic Acid Calcium Ionized Calcium Phosphorus Magnesium Total Bilirubin AST ALT Alkaline Phosphatase Ammonia Total Creatine Kinase CK-MB (CK-2) CK-MB (CK-2) Rel Index Total Protein Albumin Urine WBC (Auto) Vancomycin Trough Salicylates Acetaminophen Plasma/Serum Alcohol Crossmatch 12/05/19 12/06/19 12/06/19 23:30 04:14 05:43 WBC RBC Hgb Hct MCH RDW Plt Count Lymph % (Auto) Hitchcock % (Auto) Hitchcock # Baso # Seg Neutrophils % Seg Neuts % (Manual) Lymphocytes % (Manual) Monocytes % (Manual) Seg Neutrophils # Seg Neutrophils # Man Lymphocytes # (Manual) Monocytes # (Manual) Eosinophils # (Manual) Basophils # (Manual) PT INR APTT ABG pH ABG pO2 ABG HCO3 ABG O2 Saturation ABG Base Excess ABG Hemoglobin Oxyhemoglobin Sodium Potassium 5.6 H Chloride 95.0 L Carbon Dioxide BUN 48 H Creatinine 1.3 H D Glucose POC Glucose 126 H 121 H Lactic Acid Calcium Ionized Calcium Phosphorus Magnesium Total Bilirubin AST 89 H ALT 98 H Alkaline Phosphatase 476 H Ammonia Total Creatine Kinase CK-MB (CK-2) CK-MB (CK-2) Rel Index Total Protein Albumin 2.8 L Urine WBC (Auto) Vancomycin Trough Salicylates Acetaminophen Plasma/Serum Alcohol Crossmatch 12/06/19 12/06/19 12/07/19 10:39 14:34 00:19 WBC 17.3 H RBC 2.60 L Hgb 7.1 L Hct 22.7 L MCH 27 L RDW 20.1 H Plt Count 832 H Lymph % (Auto) Hitchcock % (Auto) Hitchcock # Baso # Seg Neutrophils % Seg Neuts % (Manual) Lymphocytes % (Manual) Monocytes % (Manual) Seg Neutrophils # Seg Neutrophils # Man Lymphocytes # (Manual) Monocytes # (Manual) Eosinophils # (Manual) Basophils # (Manual) PT INR APTT ABG pH ABG pO2 ABG HCO3 ABG O2 Saturation ABG Base Excess ABG Hemoglobin Oxyhemoglobin Sodium Potassium Chloride Carbon Dioxide BUN Creatinine Glucose POC Glucose 128 H 136 H Lactic Acid Calcium Ionized Calcium Phosphorus Magnesium Total Bilirubin AST ALT Alkaline Phosphatase Ammonia Total Creatine Kinase CK-MB (CK-2) CK-MB (CK-2) Rel Index Total Protein Albumin Urine WBC (Auto) Vancomycin Trough Salicylates Acetaminophen Plasma/Serum Alcohol Crossmatch 12/07/19 12/07/19 12/07/19 03:44 03:44 05:53 WBC 16.2 H RBC 2.56 L Hgb 7.1 L Hct 22.3 L MCH RDW 19.4 H Plt Count 782 H Lymph % (Auto) Hitchcock % (Auto) Hitchcock # Baso # Seg Neutrophils % Seg Neuts % (Manual) Lymphocytes % (Manual) Monocytes % (Manual) Seg Neutrophils # Seg Neutrophils # Man Lymphocytes # (Manual) Monocytes # (Manual) Eosinophils # (Manual) Basophils # (Manual) PT INR APTT ABG pH ABG pO2 ABG HCO3 ABG O2 Saturation ABG Base Excess ABG Hemoglobin Oxyhemoglobin Sodium Potassium Chloride 95.6 L Carbon Dioxide BUN 56 H Creatinine 1.4 H Glucose 120 H POC Glucose 128 H Lactic Acid Calcium 10.3 H Ionized Calcium Phosphorus Magnesium Total Bilirubin AST ALT Alkaline Phosphatase Ammonia Total Creatine Kinase CK-MB (CK-2) CK-MB (CK-2) Rel Index Total Protein Albumin Urine WBC (Auto) Vancomycin Trough Salicylates Acetaminophen Plasma/Serum Alcohol Crossmatch 12/07/19 12/07/19 12/08/19 12:54 23:47 00:20 WBC RBC Hgb Hct MCH RDW Plt Count Lymph % (Auto) Hitchcock % (Auto) Hitchcock # Baso # Seg Neutrophils % Seg Neuts % (Manual) Lymphocytes % (Manual) Monocytes % (Manual) Seg Neutrophils # Seg Neutrophils # Man Lymphocytes # (Manual) Monocytes # (Manual) Eosinophils # (Manual) Basophils # (Manual) PT INR APTT ABG pH ABG pO2 ABG HCO3 ABG O2 Saturation ABG Base Excess ABG Hemoglobin Oxyhemoglobin Sodium Potassium Chloride Carbon Dioxide BUN Creatinine Glucose POC Glucose 128 H 130 H 124 H Lactic Acid Calcium Ionized Calcium Phosphorus Magnesium Total Bilirubin AST ALT Alkaline Phosphatase Ammonia Total Creatine Kinase CK-MB (CK-2) CK-MB (CK-2) Rel Index Total Protein Albumin Urine WBC (Auto) Vancomycin Trough Salicylates Acetaminophen Plasma/Serum Alcohol Crossmatch 12/08/19 12/08/19 12/08/19 06:38 12:04 18:26 WBC RBC Hgb Hct MCH RDW Plt Count Lymph % (Auto) Hitchcock % (Auto) Hitchcock # Baso # Seg Neutrophils % Seg Neuts % (Manual) Lymphocytes % (Manual) Monocytes % (Manual) Seg Neutrophils # Seg Neutrophils # Man Lymphocytes # (Manual) Monocytes # (Manual) Eosinophils # (Manual) Basophils # (Manual) PT INR APTT ABG pH ABG pO2 ABG HCO3 ABG O2 Saturation ABG Base Excess ABG Hemoglobin Oxyhemoglobin Sodium Potassium Chloride Carbon Dioxide BUN Creatinine Glucose POC Glucose 137 H 129 H 150 H Lactic Acid Calcium Ionized Calcium Phosphorus Magnesium Total Bilirubin AST ALT Alkaline Phosphatase Ammonia Total Creatine Kinase CK-MB (CK-2) CK-MB (CK-2) Rel Index Total Protein Albumin Urine WBC (Auto) Vancomycin Trough Salicylates Acetaminophen Plasma/Serum Alcohol Crossmatch 12/09/19 12/09/19 12/09/19 00:56 05:34 06:13 WBC RBC Hgb Hct MCH RDW Plt Count Lymph % (Auto) Hitchcock % (Auto) Hitchcock # Baso # Seg Neutrophils % Seg Neuts % (Manual) Lymphocytes % (Manual) Monocytes % (Manual) Seg Neutrophils # Seg Neutrophils # Man Lymphocytes # (Manual) Monocytes # (Manual) Eosinophils # (Manual) Basophils # (Manual) PT INR APTT ABG pH ABG pO2 ABG HCO3 ABG O2 Saturation ABG Base Excess ABG Hemoglobin Oxyhemoglobin Sodium 146 H Potassium Chloride Carbon Dioxide BUN 66 H Creatinine 1.9 H Glucose 116 H POC Glucose 130 H 130 H Lactic Acid Calcium Ionized Calcium Phosphorus Magnesium Total Bilirubin AST ALT Alkaline Phosphatase Ammonia Total Creatine Kinase CK-MB (CK-2) CK-MB (CK-2) Rel Index Total Protein Albumin Urine WBC (Auto) Vancomycin Trough Salicylates Acetaminophen Plasma/Serum Alcohol Crossmatch 12/09/19 12/09/19 12/10/19 11:52 17:50 00:14 WBC RBC Hgb Hct MCH RDW Plt Count Lymph % (Auto) Hitchcock % (Auto) Hitchcock # Baso # Seg Neutrophils % Seg Neuts % (Manual) Lymphocytes % (Manual) Monocytes % (Manual) Seg Neutrophils # Seg Neutrophils # Man Lymphocytes # (Manual) Monocytes # (Manual) Eosinophils # (Manual) Basophils # (Manual) PT INR APTT ABG pH ABG pO2 ABG HCO3 ABG O2 Saturation ABG Base Excess ABG Hemoglobin Oxyhemoglobin Sodium Potassium Chloride Carbon Dioxide BUN Creatinine Glucose POC Glucose 135 H 120 H 116 H Lactic Acid Calcium Ionized Calcium Phosphorus Magnesium Total Bilirubin AST ALT Alkaline Phosphatase Ammonia Total Creatine Kinase CK-MB (CK-2) CK-MB (CK-2) Rel Index Total Protein Albumin Urine WBC (Auto) Vancomycin Trough Salicylates Acetaminophen Plasma/Serum Alcohol Crossmatch 12/10/19 12/10/19 12/10/19 05:38 11:38 17:34 WBC RBC Hgb Hct MCH RDW Plt Count Lymph % (Auto) Hitchcock % (Auto) Hitchcock # Baso # Seg Neutrophils % Seg Neuts % (Manual) Lymphocytes % (Manual) Monocytes % (Manual) Seg Neutrophils # Seg Neutrophils # Man Lymphocytes # (Manual) Monocytes # (Manual) Eosinophils # (Manual) Basophils # (Manual) PT INR APTT ABG pH ABG pO2 ABG HCO3 ABG O2 Saturation ABG Base Excess ABG Hemoglobin Oxyhemoglobin Sodium Potassium Chloride Carbon Dioxide BUN Creatinine Glucose POC Glucose 115 H 112 H 130 H Lactic Acid Calcium Ionized Calcium Phosphorus Magnesium Total Bilirubin AST ALT Alkaline Phosphatase Ammonia Total Creatine Kinase CK-MB (CK-2) CK-MB (CK-2) Rel Index Total Protein Albumin Urine WBC (Auto) Vancomycin Trough Salicylates Acetaminophen Plasma/Serum Alcohol Crossmatch 12/11/19 12/11/19 12/11/19 00:20 05:31 12:22 WBC RBC Hgb Hct MCH RDW Plt Count Lymph % (Auto) Hitchcock % (Auto) Hitchcock # Baso # Seg Neutrophils % Seg Neuts % (Manual) Lymphocytes % (Manual) Monocytes % (Manual) Seg Neutrophils # Seg Neutrophils # Man Lymphocytes # (Manual) Monocytes # (Manual) Eosinophils # (Manual) Basophils # (Manual) PT INR APTT ABG pH ABG pO2 ABG HCO3 ABG O2 Saturation ABG Base Excess ABG Hemoglobin Oxyhemoglobin Sodium Potassium Chloride Carbon Dioxide BUN Creatinine Glucose POC Glucose 124 H 132 H 128 H Lactic Acid Calcium Ionized Calcium Phosphorus Magnesium Total Bilirubin AST ALT Alkaline Phosphatase Ammonia Total Creatine Kinase CK-MB (CK-2) CK-MB (CK-2) Rel Index Total Protein Albumin Urine WBC (Auto) Vancomycin Trough Salicylates Acetaminophen Plasma/Serum Alcohol Crossmatch 12/11/19 12/11/19 12/12/19 18:04 23:42 03:51 WBC RBC Hgb Hct MCH RDW Plt Count Lymph % (Auto) Hitchcock % (Auto) Hitchcock # Baso # Seg Neutrophils % Seg Neuts % (Manual) Lymphocytes % (Manual) Monocytes % (Manual) Seg Neutrophils # Seg Neutrophils # Man Lymphocytes # (Manual) Monocytes # (Manual) Eosinophils # (Manual) Basophils # (Manual) PT INR APTT ABG pH ABG pO2 ABG HCO3 ABG O2 Saturation ABG Base Excess ABG Hemoglobin Oxyhemoglobin Sodium 149 H Potassium Chloride Carbon Dioxide 20 L D BUN 77 H Creatinine 2.8 H Glucose POC Glucose 133 H 154 H Lactic Acid Calcium Ionized Calcium Phosphorus Magnesium Total Bilirubin AST ALT Alkaline Phosphatase Ammonia Total Creatine Kinase CK-MB (CK-2) CK-MB (CK-2) Rel Index Total Protein Albumin Urine WBC (Auto) Vancomycin Trough Salicylates Acetaminophen Plasma/Serum Alcohol Crossmatch 12/12/19 12/12/19 12/12/19 05:18 05:26 10:30 WBC 18.0 H RBC 2.51 L Hgb 6.8 L Hct 22.0 L MCH 27 L RDW 19.9 H Plt Count 582 H Lymph % (Auto) Hitchcock % (Auto) Hitchcock # Baso # Seg Neutrophils % Seg Neuts % (Manual) Lymphocytes % (Manual) Monocytes % (Manual) Seg Neutrophils # Seg Neutrophils # Man Lymphocytes # (Manual) Monocytes # (Manual) Eosinophils # (Manual) Basophils # (Manual) PT INR APTT ABG pH ABG pO2 ABG HCO3 ABG O2 Saturation ABG Base Excess ABG Hemoglobin Oxyhemoglobin Sodium Potassium Chloride Carbon Dioxide BUN Creatinine Glucose POC Glucose 135 H Lactic Acid Calcium Ionized Calcium Phosphorus Magnesium Total Bilirubin AST ALT Alkaline Phosphatase Ammonia Total Creatine Kinase CK-MB (CK-2) CK-MB (CK-2) Rel Index Total Protein Albumin Urine WBC (Auto) Vancomycin Trough Salicylates Acetaminophen Plasma/Serum Alcohol Crossmatch See Detail 12/12/19 12/12/19 12/12/19 11:44 18:10 23:21 WBC RBC Hgb Hct MCH RDW Plt Count Lymph % (Auto) Hitchcock % (Auto) Hitchcock # Baso # Seg Neutrophils % Seg Neuts % (Manual) Lymphocytes % (Manual) Monocytes % (Manual) Seg Neutrophils # Seg Neutrophils # Man Lymphocytes # (Manual) Monocytes # (Manual) Eosinophils # (Manual) Basophils # (Manual) PT INR APTT ABG pH ABG pO2 ABG HCO3 ABG O2 Saturation ABG Base Excess ABG Hemoglobin Oxyhemoglobin Sodium Potassium Chloride Carbon Dioxide BUN Creatinine Glucose POC Glucose 108 H 107 H 126 H Lactic Acid Calcium Ionized Calcium Phosphorus Magnesium Total Bilirubin AST ALT Alkaline Phosphatase Ammonia Total Creatine Kinase CK-MB (CK-2) CK-MB (CK-2) Rel Index Total Protein Albumin Urine WBC (Auto) Vancomycin Trough Salicylates Acetaminophen Plasma/Serum Alcohol Crossmatch 12/13/19 12/13/19 12/13/19 05:41 07:48 07:48 WBC 38.3 H RBC 2.37 L Hgb 6.3 L Hct 20.9 L MCH 27 L RDW 20.2 H Plt Count 546 H Lymph % (Auto) Hitchcock % (Auto) Hitchcock # Baso # Seg Neutrophils % Seg Neuts % (Manual) 93.0 H Lymphocytes % (Manual) 1.0 L Monocytes % (Manual) Seg Neutrophils # Seg Neutrophils # Man 35.6 H Lymphocytes # (Manual) 0.4 L Monocytes # (Manual) Eosinophils # (Manual) Basophils # (Manual) 0.4 H PT INR APTT ABG pH ABG pO2 ABG HCO3 ABG O2 Saturation ABG Base Excess ABG Hemoglobin Oxyhemoglobin Sodium 152 H Potassium 3.1 L D Chloride 111.9 H Carbon Dioxide 21 L BUN 53 H Creatinine 1.9 H Glucose 141 H POC Glucose 128 H Lactic Acid Calcium Ionized Calcium Phosphorus Magnesium Total Bilirubin AST ALT Alkaline Phosphatase 316 H Ammonia Total Creatine Kinase CK-MB (CK-2) CK-MB (CK-2) Rel Index Total Protein Albumin 2.4 L Urine WBC (Auto) Vancomycin Trough Salicylates Acetaminophen Plasma/Serum Alcohol Crossmatch 12/13/19 12/13/19 12/14/19 18:17 23:19 05:36 WBC RBC Hgb Hct MCH RDW Plt Count Lymph % (Auto) Hitchcock % (Auto) Hitchcock # Baso # Seg Neutrophils % Seg Neuts % (Manual) Lymphocytes % (Manual) Monocytes % (Manual) Seg Neutrophils # Seg Neutrophils # Man Lymphocytes # (Manual) Monocytes # (Manual) Eosinophils # (Manual) Basophils # (Manual) PT INR APTT ABG pH ABG pO2 ABG HCO3 ABG O2 Saturation ABG Base Excess ABG Hemoglobin Oxyhemoglobin Sodium Potassium Chloride Carbon Dioxide BUN Creatinine Glucose POC Glucose 141 H 158 H 182 H Lactic Acid Calcium Ionized Calcium Phosphorus Magnesium Total Bilirubin AST ALT Alkaline Phosphatase Ammonia Total Creatine Kinase CK-MB (CK-2) CK-MB (CK-2) Rel Index Total Protein Albumin Urine WBC (Auto) Vancomycin Trough Salicylates Acetaminophen Plasma/Serum Alcohol Crossmatch 12/14/19 12/14/19 12/14/19 08:48 08:48 10:31 WBC 33.3 H RBC 2.70 L Hgb 7.9 L 8.0 L Hct 25.3 L 24.0 L MCH RDW 19.2 H Plt Count 476 H Lymph % (Auto) Hitchcock % (Auto) Hitchcock # Baso # Seg Neutrophils % Seg Neuts % (Manual) Lymphocytes % (Manual) Monocytes % (Manual) Seg Neutrophils # Seg Neutrophils # Man Lymphocytes # (Manual) Monocytes # (Manual) Eosinophils # (Manual) Basophils # (Manual) PT INR APTT ABG pH ABG pO2 ABG HCO3 ABG O2 Saturation ABG Base Excess ABG Hemoglobin Oxyhemoglobin Sodium 153 H Potassium 2.5 L* Chloride 114.9 H Carbon Dioxide 20 L BUN 38 H Creatinine 1.4 H Glucose 177 H POC Glucose Lactic Acid Calcium Ionized Calcium Phosphorus Magnesium Total Bilirubin AST ALT Alkaline Phosphatase Ammonia Total Creatine Kinase CK-MB (CK-2) CK-MB (CK-2) Rel Index Total Protein Albumin Urine WBC (Auto) Vancomycin Trough Salicylates Acetaminophen Plasma/Serum Alcohol Crossmatch 12/14/19 12/14/19 12/14/19 12:57 16:15 17:50 WBC RBC Hgb Hct MCH RDW Plt Count Lymph % (Auto) Hitchcock % (Auto) Hitchcock # Baso # Seg Neutrophils % Seg Neuts % (Manual) Lymphocytes % (Manual) Monocytes % (Manual) Seg Neutrophils # Seg Neutrophils # Man Lymphocytes # (Manual) Monocytes # (Manual) Eosinophils # (Manual) Basophils # (Manual) PT INR APTT ABG pH ABG pO2 73.6 L ABG HCO3 ABG O2 Saturation ABG Base Excess ABG Hemoglobin 7.6 L Oxyhemoglobin 94.0 L Sodium Potassium Chloride Carbon Dioxide BUN Creatinine Glucose POC Glucose 174 H 150 H Lactic Acid Calcium Ionized Calcium Phosphorus Magnesium Total Bilirubin AST ALT Alkaline Phosphatase Ammonia Total Creatine Kinase CK-MB (CK-2) CK-MB (CK-2) Rel Index Total Protein Albumin Urine WBC (Auto) Vancomycin Trough Salicylates Acetaminophen Plasma/Serum Alcohol Crossmatch 12/15/19 12/15/19 12/15/19 00:28 05:27 07:23 WBC 30.0 H RBC 3.11 L Hgb 8.6 L Hct 27.7 L MCH RDW 20.0 H Plt Count 473 H Lymph % (Auto) Hitchcock % (Auto) Hitchcock # Baso # Seg Neutrophils % Seg Neuts % (Manual) Lymphocytes % (Manual) Monocytes % (Manual) Seg Neutrophils # Seg Neutrophils # Man Lymphocytes # (Manual) Monocytes # (Manual) Eosinophils # (Manual) Basophils # (Manual) PT INR APTT ABG pH ABG pO2 ABG HCO3 ABG O2 Saturation ABG Base Excess ABG Hemoglobin Oxyhemoglobin Sodium Potassium Chloride Carbon Dioxide BUN Creatinine Glucose POC Glucose 167 H 148 H Lactic Acid Calcium Ionized Calcium Phosphorus Magnesium Total Bilirubin AST ALT Alkaline Phosphatase Ammonia Total Creatine Kinase CK-MB (CK-2) CK-MB (CK-2) Rel Index Total Protein Albumin Urine WBC (Auto) Vancomycin Trough Salicylates Acetaminophen Plasma/Serum Alcohol Crossmatch 12/15/19 12/15/19 12/15/19 07:23 12:21 17:41 WBC RBC Hgb Hct MCH RDW Plt Count Lymph % (Auto) Hitchcock % (Auto) Hitchcock # Baso # Seg Neutrophils % Seg Neuts % (Manual) Lymphocytes % (Manual) Monocytes % (Manual) Seg Neutrophils # Seg Neutrophils # Man Lymphocytes # (Manual) Monocytes # (Manual) Eosinophils # (Manual) Basophils # (Manual) PT INR APTT ABG pH ABG pO2 ABG HCO3 ABG O2 Saturation ABG Base Excess ABG Hemoglobin Oxyhemoglobin Sodium 147 H Potassium 3.5 L D Chloride 111.2 H Carbon Dioxide 19 L BUN 29 H Creatinine Glucose 126 H POC Glucose 154 H 144 H Lactic Acid Calcium Ionized Calcium Phosphorus Magnesium Total Bilirubin AST ALT Alkaline Phosphatase Ammonia Total Creatine Kinase CK-MB (CK-2) CK-MB (CK-2) Rel Index Total Protein Albumin Urine WBC (Auto) Vancomycin Trough Salicylates Acetaminophen Plasma/Serum Alcohol Crossmatch 12/16/19 12/16/19 12/16/19 00:22 05:30 05:44 WBC 30.8 H RBC 2.58 L Hgb 7.1 L Hct 22.7 L MCH RDW 19.6 H Plt Count 451 H Lymph % (Auto) Hitchcock % (Auto) Hitchcock # Baso # Seg Neutrophils % Seg Neuts % (Manual) Lymphocytes % (Manual) Monocytes % (Manual) Seg Neutrophils # Seg Neutrophils # Man Lymphocytes # (Manual) Monocytes # (Manual) Eosinophils # (Manual) Basophils # (Manual) PT INR APTT ABG pH ABG pO2 ABG HCO3 ABG O2 Saturation ABG Base Excess ABG Hemoglobin Oxyhemoglobin Sodium Potassium Chloride Carbon Dioxide BUN Creatinine Glucose POC Glucose 139 H 126 H Lactic Acid Calcium Ionized Calcium Phosphorus Magnesium Total Bilirubin AST ALT Alkaline Phosphatase Ammonia Total Creatine Kinase CK-MB (CK-2) CK-MB (CK-2) Rel Index Total Protein Albumin Urine WBC (Auto) Vancomycin Trough Salicylates Acetaminophen Plasma/Serum Alcohol Crossmatch 12/16/19 12/16/19 12/16/19 05:44 11:48 17:37 WBC RBC Hgb Hct MCH RDW Plt Count Lymph % (Auto) Hitchcock % (Auto) Hitchcock # Baso # Seg Neutrophils % Seg Neuts % (Manual) Lymphocytes % (Manual) Monocytes % (Manual) Seg Neutrophils # Seg Neutrophils # Man Lymphocytes # (Manual) Monocytes # (Manual) Eosinophils # (Manual) Basophils # (Manual) PT INR APTT ABG pH ABG pO2 ABG HCO3 ABG O2 Saturation ABG Base Excess ABG Hemoglobin Oxyhemoglobin Sodium Potassium 3.4 L Chloride 109.2 H Carbon Dioxide 19 L BUN 27 H Creatinine Glucose 124 H POC Glucose 125 H 148 H Lactic Acid Calcium Ionized Calcium Phosphorus Magnesium Total Bilirubin AST ALT Alkaline Phosphatase Ammonia Total Creatine Kinase CK-MB (CK-2) CK-MB (CK-2) Rel Index Total Protein Albumin Urine WBC (Auto) Vancomycin Trough Salicylates Acetaminophen Plasma/Serum Alcohol Crossmatch 12/16/19 12/17/19 12/17/19 23:43 05:28 12:47 WBC RBC Hgb Hct MCH RDW Plt Count Lymph % (Auto) Hitchcock % (Auto) Hitchcock # Baso # Seg Neutrophils % Seg Neuts % (Manual) Lymphocytes % (Manual) Monocytes % (Manual) Seg Neutrophils # Seg Neutrophils # Man Lymphocytes # (Manual) Monocytes # (Manual) Eosinophils # (Manual) Basophils # (Manual) PT INR APTT ABG pH ABG pO2 ABG HCO3 ABG O2 Saturation ABG Base Excess ABG Hemoglobin Oxyhemoglobin Sodium Potassium Chloride Carbon Dioxide BUN Creatinine Glucose POC Glucose 142 H 140 H 125 H Lactic Acid Calcium Ionized Calcium Phosphorus Magnesium Total Bilirubin AST ALT Alkaline Phosphatase Ammonia Total Creatine Kinase CK-MB (CK-2) CK-MB (CK-2) Rel Index Total Protein Albumin Urine WBC (Auto) Vancomycin Trough Salicylates Acetaminophen Plasma/Serum Alcohol Crossmatch 12/17/19 12/17/19 12/17/19 17:05 18:00 Unknown WBC RBC Hgb Hct MCH RDW Plt Count Lymph % (Auto) Hitchcock % (Auto) Hitchcock # Baso # Seg Neutrophils % Seg Neuts % (Manual) Lymphocytes % (Manual) Monocytes % (Manual) Seg Neutrophils # Seg Neutrophils # Man Lymphocytes # (Manual) Monocytes # (Manual) Eosinophils # (Manual) Basophils # (Manual) PT INR APTT ABG pH ABG pO2 68.1 L ABG HCO3 ABG O2 Saturation 93.7 L ABG Base Excess ABG Hemoglobin 5.0 L Oxyhemoglobin 91.7 L Sodium Potassium Chloride Carbon Dioxide BUN Creatinine Glucose POC Glucose 140 H Lactic Acid Calcium Ionized Calcium Phosphorus Magnesium Total Bilirubin AST ALT Alkaline Phosphatase Ammonia Total Creatine Kinase CK-MB (CK-2) CK-MB (CK-2) Rel Index Total Protein Albumin Urine WBC (Auto) Vancomycin Trough Salicylates Acetaminophen Plasma/Serum Alcohol Crossmatch 12/18/19 12/18/19 12/18/19 00:16 04:53 04:53 WBC 28.6 H RBC 2.27 L Hgb 6.3 L Hct 19.5 L* MCH RDW 20.0 H Plt Count 497 H Lymph % (Auto) Hitchcock % (Auto) Hitchcock # Baso # Seg Neutrophils % Seg Neuts % (Manual) Lymphocytes % (Manual) Monocytes % (Manual) Seg Neutrophils # Seg Neutrophils # Man Lymphocytes # (Manual) Monocytes # (Manual) Eosinophils # (Manual) Basophils # (Manual) PT INR APTT ABG pH ABG pO2 ABG HCO3 ABG O2 Saturation ABG Base Excess ABG Hemoglobin Oxyhemoglobin Sodium Potassium Chloride 107.9 H Carbon Dioxide 20 L BUN 27 H Creatinine 0.6 L Glucose 116 H POC Glucose 123 H Lactic Acid Calcium Ionized Calcium Phosphorus Magnesium Total Bilirubin AST ALT Alkaline Phosphatase Ammonia Total Creatine Kinase CK-MB (CK-2) CK-MB (CK-2) Rel Index Total Protein Albumin Urine WBC (Auto) Vancomycin Trough Salicylates Acetaminophen Plasma/Serum Alcohol Crossmatch 12/18/19 12/18/19 12/18/19 06:38 11:22 12:08 WBC RBC Hgb Hct MCH RDW Plt Count Lymph % (Auto) Hitchcock % (Auto) Hitchcock # Baso # Seg Neutrophils % Seg Neuts % (Manual) Lymphocytes % (Manual) Monocytes % (Manual) Seg Neutrophils # Seg Neutrophils # Man Lymphocytes # (Manual) Monocytes # (Manual) Eosinophils # (Manual) Basophils # (Manual) PT INR APTT ABG pH ABG pO2 ABG HCO3 ABG O2 Saturation ABG Base Excess ABG Hemoglobin Oxyhemoglobin Sodium Potassium Chloride Carbon Dioxide BUN Creatinine Glucose POC Glucose 120 H 127 H Lactic Acid Calcium Ionized Calcium Phosphorus Magnesium Total Bilirubin AST ALT Alkaline Phosphatase Ammonia Total Creatine Kinase CK-MB (CK-2) CK-MB (CK-2) Rel Index Total Protein Albumin Urine WBC (Auto) Vancomycin Trough Salicylates Acetaminophen Plasma/Serum Alcohol Crossmatch See Detail 12/18/19 12/18/19 12/18/19 14:05 17:49 23:53 WBC RBC Hgb Hct MCH RDW Plt Count Lymph % (Auto) Hitchcock % (Auto) Hitchcock # Baso # Seg Neutrophils % Seg Neuts % (Manual) Lymphocytes % (Manual) Monocytes % (Manual) Seg Neutrophils # Seg Neutrophils # Man Lymphocytes # (Manual) Monocytes # (Manual) Eosinophils # (Manual) Basophils # (Manual) PT INR APTT ABG pH 7.267 L ABG pO2 69.8 L ABG HCO3 ABG O2 Saturation 88.4 L ABG Base Excess ABG Hemoglobin 7.1 L Oxyhemoglobin 86.4 L Sodium Potassium Chloride Carbon Dioxide BUN Creatinine Glucose POC Glucose 157 H 128 H Lactic Acid Calcium Ionized Calcium Phosphorus Magnesium Total Bilirubin AST ALT Alkaline Phosphatase Ammonia Total Creatine Kinase CK-MB (CK-2) CK-MB (CK-2) Rel Index Total Protein Albumin Urine WBC (Auto) Vancomycin Trough Salicylates Acetaminophen Plasma/Serum Alcohol Crossmatch 12/19/19 12/19/19 12/19/19 03:37 03:37 05:25 WBC 31.3 H RBC 2.60 L Hgb 7.6 L Hct 23.0 L MCH RDW 19.4 H Plt Count 530 H Lymph % (Auto) Hitchcock % (Auto) Hitchcock # Baso # Seg Neutrophils % Seg Neuts % (Manual) Lymphocytes % (Manual) Monocytes % (Manual) Seg Neutrophils # Seg Neutrophils # Man Lymphocytes # (Manual) Monocytes # (Manual) Eosinophils # (Manual) Basophils # (Manual) PT INR APTT ABG pH ABG pO2 ABG HCO3 ABG O2 Saturation ABG Base Excess ABG Hemoglobin Oxyhemoglobin Sodium Potassium Chloride Carbon Dioxide 18 L BUN 36 H Creatinine Glucose 111 H POC Glucose 123 H Lactic Acid Calcium Ionized Calcium Phosphorus Magnesium Total Bilirubin AST ALT Alkaline Phosphatase Ammonia Total Creatine Kinase CK-MB (CK-2) CK-MB (CK-2) Rel Index Total Protein Albumin Urine WBC (Auto) Vancomycin Trough Salicylates Acetaminophen Plasma/Serum Alcohol Crossmatch 12/19/19 12/19/19 12/20/19 12:59 18:33 00:00 WBC RBC Hgb Hct MCH RDW Plt Count Lymph % (Auto) Hitchcock % (Auto) Hitchcock # Baso # Seg Neutrophils % Seg Neuts % (Manual) Lymphocytes % (Manual) Monocytes % (Manual) Seg Neutrophils # Seg Neutrophils # Man Lymphocytes # (Manual) Monocytes # (Manual) Eosinophils # (Manual) Basophils # (Manual) PT INR APTT ABG pH ABG pO2 ABG HCO3 ABG O2 Saturation ABG Base Excess ABG Hemoglobin Oxyhemoglobin Sodium Potassium Chloride Carbon Dioxide BUN Creatinine Glucose POC Glucose 130 H 118 H 135 H Lactic Acid Calcium Ionized Calcium Phosphorus Magnesium Total Bilirubin AST ALT Alkaline Phosphatase Ammonia Total Creatine Kinase CK-MB (CK-2) CK-MB (CK-2) Rel Index Total Protein Albumin Urine WBC (Auto) Vancomycin Trough Salicylates Acetaminophen Plasma/Serum Alcohol Crossmatch 12/20/19 12/20/19 12/20/19 05:46 12:31 18:07 WBC RBC Hgb Hct MCH RDW Plt Count Lymph % (Auto) Hitchcock % (Auto) Hitchcock # Baso # Seg Neutrophils % Seg Neuts % (Manual) Lymphocytes % (Manual) Monocytes % (Manual) Seg Neutrophils # Seg Neutrophils # Man Lymphocytes # (Manual) Monocytes # (Manual) Eosinophils # (Manual) Basophils # (Manual) PT INR APTT ABG pH ABG pO2 ABG HCO3 ABG O2 Saturation ABG Base Excess ABG Hemoglobin Oxyhemoglobin Sodium Potassium Chloride Carbon Dioxide BUN Creatinine Glucose POC Glucose 131 H 128 H 134 H Lactic Acid Calcium Ionized Calcium Phosphorus Magnesium Total Bilirubin AST ALT Alkaline Phosphatase Ammonia Total Creatine Kinase CK-MB (CK-2) CK-MB (CK-2) Rel Index Total Protein Albumin Urine WBC (Auto) Vancomycin Trough Salicylates Acetaminophen Plasma/Serum Alcohol Crossmatch 12/21/19 12/21/19 12/21/19 03:28 03:28 07:21 WBC 29.4 H RBC 2.30 L Hgb 6.8 L Hct 20.2 L MCH RDW 20.2 H Plt Count 746 H Lymph % (Auto) Hitchcock % (Auto) Hitchcock # Baso # Seg Neutrophils % Seg Neuts % (Manual) 85.0 H Lymphocytes % (Manual) 8.0 L Monocytes % (Manual) Seg Neutrophils # Seg Neutrophils # Man 25.0 H Lymphocytes # (Manual) Monocytes # (Manual) 1.5 H Eosinophils # (Manual) 0.6 H Basophils # (Manual) PT INR APTT ABG pH ABG pO2 ABG HCO3 ABG O2 Saturation ABG Base Excess ABG Hemoglobin Oxyhemoglobin Sodium Potassium Chloride Carbon Dioxide 17 L BUN 57 H Creatinine 1.4 H D Glucose POC Glucose 124 H Lactic Acid Calcium Ionized Calcium Phosphorus Magnesium Total Bilirubin AST ALT Alkaline Phosphatase Ammonia Total Creatine Kinase CK-MB (CK-2) CK-MB (CK-2) Rel Index Total Protein Albumin Urine WBC (Auto) Vancomycin Trough Salicylates Acetaminophen Plasma/Serum Alcohol Crossmatch 12/21/19 12/21/19 12/21/19 08:56 12:06 14:53 WBC RBC Hgb 7.2 L Hct 22.9 L MCH RDW Plt Count Lymph % (Auto) Hitchcock % (Auto) Hitchcock # Baso # Seg Neutrophils % Seg Neuts % (Manual) Lymphocytes % (Manual) Monocytes % (Manual) Seg Neutrophils # Seg Neutrophils # Man Lymphocytes # (Manual) Monocytes # (Manual) Eosinophils # (Manual) Basophils # (Manual) PT INR APTT ABG pH ABG pO2 ABG HCO3 ABG O2 Saturation ABG Base Excess ABG Hemoglobin Oxyhemoglobin Sodium Potassium Chloride Carbon Dioxide BUN Creatinine Glucose POC Glucose 116 H Lactic Acid Calcium Ionized Calcium Phosphorus Magnesium Total Bilirubin AST ALT Alkaline Phosphatase Ammonia Total Creatine Kinase CK-MB (CK-2) CK-MB (CK-2) Rel Index Total Protein Albumin Urine WBC (Auto) Vancomycin Trough 33.8 H Salicylates Acetaminophen Plasma/Serum Alcohol Crossmatch 12/21/19 12/21/19 12/21/19 14:54 17:27 23:49 WBC RBC Hgb Hct MCH RDW Plt Count Lymph % (Auto) Hitchcock % (Auto) Hitchcock # Baso # Seg Neutrophils % Seg Neuts % (Manual) Lymphocytes % (Manual) Monocytes % (Manual) Seg Neutrophils # Seg Neutrophils # Man Lymphocytes # (Manual) Monocytes # (Manual) Eosinophils # (Manual) Basophils # (Manual) PT INR APTT ABG pH ABG pO2 ABG HCO3 ABG O2 Saturation ABG Base Excess ABG Hemoglobin Oxyhemoglobin Sodium Potassium Chloride Carbon Dioxide BUN Creatinine Glucose POC Glucose 145 H 127 H Lactic Acid Calcium Ionized Calcium Phosphorus Magnesium Total Bilirubin AST ALT Alkaline Phosphatase Ammonia Total Creatine Kinase CK-MB (CK-2) CK-MB (CK-2) Rel Index Total Protein Albumin Urine WBC (Auto) Vancomycin Trough Salicylates Acetaminophen Plasma/Serum Alcohol Crossmatch See Detail 12/22/19 12/22/19 12/22/19 04:43 05:56 08:40 WBC RBC Hgb Hct MCH RDW Plt Count Lymph % (Auto) Hitchcock % (Auto) Hitchcock # Baso # Seg Neutrophils % Seg Neuts % (Manual) Lymphocytes % (Manual) Monocytes % (Manual) Seg Neutrophils # Seg Neutrophils # Man Lymphocytes # (Manual) Monocytes # (Manual) Eosinophils # (Manual) Basophils # (Manual) PT INR APTT ABG pH ABG pO2 75.6 L ABG HCO3 ABG O2 Saturation ABG Base Excess -2.6 L ABG Hemoglobin 6.8 L Oxyhemoglobin 94.6 L Sodium Potassium Chloride Carbon Dioxide 17 L BUN 60 H Creatinine 1.4 H Glucose 126 H POC Glucose 153 H Lactic Acid Calcium Ionized Calcium Phosphorus Magnesium Total Bilirubin AST ALT Alkaline Phosphatase Ammonia Total Creatine Kinase CK-MB (CK-2) CK-MB (CK-2) Rel Index Total Protein Albumin Urine WBC (Auto) Vancomycin Trough Salicylates Acetaminophen Plasma/Serum Alcohol Crossmatch 12/22/19 12/22/19 12/23/19 12:07 17:49 04:30 WBC 22.4 H RBC 2.68 L Hgb 7.6 L Hct 22.9 L MCH RDW 19.9 H Plt Count 998 H Lymph % (Auto) Hitchcock % (Auto) Hitchcock # Baso # Seg Neutrophils % Seg Neuts % (Manual) 88.0 H Lymphocytes % (Manual) 2.0 L Monocytes % (Manual) 9.0 H Seg Neutrophils # Seg Neutrophils # Man 19.7 H Lymphocytes # (Manual) 0.4 L Monocytes # (Manual) 2.0 H Eosinophils # (Manual) Basophils # (Manual) PT INR APTT ABG pH ABG pO2 ABG HCO3 ABG O2 Saturation ABG Base Excess ABG Hemoglobin Oxyhemoglobin Sodium Potassium Chloride Carbon Dioxide BUN Creatinine Glucose POC Glucose 140 H 116 H Lactic Acid Calcium Ionized Calcium Phosphorus Magnesium Total Bilirubin AST ALT Alkaline Phosphatase Ammonia Total Creatine Kinase CK-MB (CK-2) CK-MB (CK-2) Rel Index Total Protein Albumin Urine WBC (Auto) Vancomycin Trough Salicylates Acetaminophen Plasma/Serum Alcohol Crossmatch 12/23/19 12/23/19 12/23/19 04:30 12:00 18:06 WBC RBC Hgb Hct MCH RDW Plt Count Lymph % (Auto) Hitchcock % (Auto) Hitchcock # Baso # Seg Neutrophils % Seg Neuts % (Manual) Lymphocytes % (Manual) Monocytes % (Manual) Seg Neutrophils # Seg Neutrophils # Man Lymphocytes # (Manual) Monocytes # (Manual) Eosinophils # (Manual) Basophils # (Manual) PT INR APTT ABG pH ABG pO2 ABG HCO3 ABG O2 Saturation ABG Base Excess ABG Hemoglobin Oxyhemoglobin Sodium Potassium 5.2 H Chloride Carbon Dioxide 21 L BUN 69 H Creatinine 1.5 H Glucose 117 H POC Glucose 128 H 138 H Lactic Acid Calcium Ionized Calcium Phosphorus Magnesium Total Bilirubin AST ALT Alkaline Phosphatase Ammonia Total Creatine Kinase CK-MB (CK-2) CK-MB (CK-2) Rel Index Total Protein Albumin Urine WBC (Auto) Vancomycin Trough Salicylates Acetaminophen Plasma/Serum Alcohol Crossmatch 12/23/19 12/24/19 12/24/19 23:46 04:31 05:08 WBC RBC Hgb Hct MCH RDW Plt Count Lymph % (Auto) Hitchcock % (Auto) Hitchcock # Baso # Seg Neutrophils % Seg Neuts % (Manual) Lymphocytes % (Manual) Monocytes % (Manual) Seg Neutrophils # Seg Neutrophils # Man Lymphocytes # (Manual) Monocytes # (Manual) Eosinophils # (Manual) Basophils # (Manual) PT INR APTT ABG pH ABG pO2 ABG HCO3 ABG O2 Saturation ABG Base Excess ABG Hemoglobin Oxyhemoglobin Sodium Potassium 5.3 H Chloride 107.6 H Carbon Dioxide 20 L BUN 72 H Creatinine 1.6 H Glucose 120 H POC Glucose 120 H 140 H Lactic Acid Calcium Ionized Calcium Phosphorus Magnesium Total Bilirubin AST ALT Alkaline Phosphatase Ammonia Total Creatine Kinase CK-MB (CK-2) CK-MB (CK-2) Rel Index Total Protein Albumin Urine WBC (Auto) Vancomycin Trough Salicylates Acetaminophen Plasma/Serum Alcohol Crossmatch 12/24/19 12/24/19 12/25/19 11:58 17:49 03:47 WBC 36.2 H RBC 2.92 L Hgb 8.4 L Hct 26.1 L MCH RDW 20.2 H Plt Count 942 H Lymph % (Auto) Hitchcock % (Auto) Hitchcock # Baso # Seg Neutrophils % Seg Neuts % (Manual) 97.5 H Lymphocytes % (Manual) 1.0 L Monocytes % (Manual) Seg Neutrophils # Seg Neutrophils # Man 35.3 H Lymphocytes # (Manual) 0.4 L Monocytes # (Manual) Eosinophils # (Manual) Basophils # (Manual) PT INR APTT ABG pH ABG pO2 ABG HCO3 ABG O2 Saturation ABG Base Excess ABG Hemoglobin Oxyhemoglobin Sodium Potassium Chloride Carbon Dioxide BUN Creatinine Glucose POC Glucose 146 H 131 H Lactic Acid Calcium Ionized Calcium Phosphorus Magnesium Total Bilirubin AST ALT Alkaline Phosphatase Ammonia Total Creatine Kinase CK-MB (CK-2) CK-MB (CK-2) Rel Index Total Protein Albumin Urine WBC (Auto) Vancomycin Trough Salicylates Acetaminophen Plasma/Serum Alcohol Crossmatch 12/25/19 12/25/19 12/25/19 03:47 05:30 12:23 WBC RBC Hgb Hct MCH RDW Plt Count Lymph % (Auto) Hitchcock % (Auto) Hitchcock # Baso # Seg Neutrophils % Seg Neuts % (Manual) Lymphocytes % (Manual) Monocytes % (Manual) Seg Neutrophils # Seg Neutrophils # Man Lymphocytes # (Manual) Monocytes # (Manual) Eosinophils # (Manual) Basophils # (Manual) PT INR APTT ABG pH ABG pO2 ABG HCO3 ABG O2 Saturation ABG Base Excess ABG Hemoglobin Oxyhemoglobin Sodium Potassium Chloride Carbon Dioxide 15 L BUN 70 H Creatinine 1.7 H Glucose 153 H POC Glucose 169 H 135 H Lactic Acid Calcium Ionized Calcium Phosphorus Magnesium Total Bilirubin AST ALT Alkaline Phosphatase Ammonia Total Creatine Kinase CK-MB (CK-2) CK-MB (CK-2) Rel Index Total Protein Albumin Urine WBC (Auto) Vancomycin Trough Salicylates Acetaminophen Plasma/Serum Alcohol Crossmatch 12/25/19 12/25/19 12/26/19 17:37 23:29 09:47 WBC 22.1 H RBC 2.83 L Hgb 7.9 L Hct 25.5 L MCH RDW 20.0 H Plt Count 894 H Lymph % (Auto) Hitchcock % (Auto) Hitchcock # Baso # Seg Neutrophils % Seg Neuts % (Manual) Lymphocytes % (Manual) Monocytes % (Manual) Seg Neutrophils # Seg Neutrophils # Man Lymphocytes # (Manual) Monocytes # (Manual) Eosinophils # (Manual) Basophils # (Manual) PT INR APTT ABG pH ABG pO2 ABG HCO3 ABG O2 Saturation ABG Base Excess ABG Hemoglobin Oxyhemoglobin Sodium Potassium Chloride Carbon Dioxide BUN Creatinine Glucose POC Glucose 120 H 140 H Lactic Acid Calcium Ionized Calcium Phosphorus Magnesium Total Bilirubin AST ALT Alkaline Phosphatase Ammonia Total Creatine Kinase CK-MB (CK-2) CK-MB (CK-2) Rel Index Total Protein Albumin Urine WBC (Auto) Vancomycin Trough Salicylates Acetaminophen Plasma/Serum Alcohol Crossmatch 12/26/19 12/26/19 12/26/19 09:47 11:46 17:52 WBC RBC Hgb Hct MCH RDW Plt Count Lymph % (Auto) Hitchcock % (Auto) Hitchcock # Baso # Seg Neutrophils % Seg Neuts % (Manual) Lymphocytes % (Manual) Monocytes % (Manual) Seg Neutrophils # Seg Neutrophils # Man Lymphocytes # (Manual) Monocytes # (Manual) Eosinophils # (Manual) Basophils # (Manual) PT INR APTT ABG pH ABG pO2 ABG HCO3 ABG O2 Saturation ABG Base Excess ABG Hemoglobin Oxyhemoglobin Sodium Potassium Chloride Carbon Dioxide 18 L BUN 65 H Creatinine 1.4 H Glucose 132 H POC Glucose 110 H 145 H Lactic Acid Calcium Ionized Calcium Phosphorus Magnesium Total Bilirubin AST ALT Alkaline Phosphatase Ammonia Total Creatine Kinase CK-MB (CK-2) CK-MB (CK-2) Rel Index Total Protein Albumin Urine WBC (Auto) Vancomycin Trough Salicylates Acetaminophen Plasma/Serum Alcohol Crossmatch 0412/27/19 12/27/19 00:01 03:42 03:42 WBC 18.0 H RBC 2.86 L Hgb 8.0 L Hct 25.2 L MCH RDW 19.2 H Plt Count 873 H Lymph % (Auto) 8.4 L Hitchcock % (Auto) 7.5 H Hitchcock # 1.4 H Baso # 0.2 H Seg Neutrophils % 82.2 H Seg Neuts % (Manual) Lymphocytes % (Manual) Monocytes % (Manual) Seg Neutrophils # 14.8 H Seg Neutrophils # Man Lymphocytes # (Manual) Monocytes # (Manual) Eosinophils # (Manual) Basophils # (Manual) PT INR APTT ABG pH ABG pO2 ABG HCO3 ABG O2 Saturation ABG Base Excess ABG Hemoglobin Oxyhemoglobin Sodium Potassium Chloride Carbon Dioxide BUN 73 H Creatinine 1.4 H Glucose 119 H POC Glucose 124 H Lactic Acid Calcium Ionized Calcium Phosphorus Magnesium Total Bilirubin AST ALT Alkaline Phosphatase Ammonia Total Creatine Kinase CK-MB (CK-2) CK-MB (CK-2) Rel Index Total Protein Albumin Urine WBC (Auto) Vancomycin Trough Salicylates Acetaminophen Plasma/Serum Alcohol Crossmatch 12/27/19 12/27/19 12/27/19 05:45 11:45 17:29 WBC RBC Hgb Hct MCH RDW Plt Count Lymph % (Auto) Hitchcock % (Auto) Hitchcock # Baso # Seg Neutrophils % Seg Neuts % (Manual) Lymphocytes % (Manual) Monocytes % (Manual) Seg Neutrophils # Seg Neutrophils # Man Lymphocytes # (Manual) Monocytes # (Manual) Eosinophils # (Manual) Basophils # (Manual) PT INR APTT ABG pH ABG pO2 ABG HCO3 ABG O2 Saturation ABG Base Excess ABG Hemoglobin Oxyhemoglobin Sodium Potassium Chloride Carbon Dioxide BUN Creatinine Glucose POC Glucose 131 H 123 H 134 H Lactic Acid Calcium Ionized Calcium Phosphorus Magnesium Total Bilirubin AST ALT Alkaline Phosphatase Ammonia Total Creatine Kinase CK-MB (CK-2) CK-MB (CK-2) Rel Index Total Protein Albumin Urine WBC (Auto) Vancomycin Trough Salicylates Acetaminophen Plasma/Serum Alcohol Crossmatch 12/28/19 12/28/19 12/28/19 00:12 05:14 11:53 WBC RBC Hgb Hct MCH RDW Plt Count Lymph % (Auto) Hitchcock % (Auto) Hitchcock # Baso # Seg Neutrophils % Seg Neuts % (Manual) Lymphocytes % (Manual) Monocytes % (Manual) Seg Neutrophils # Seg Neutrophils # Man Lymphocytes # (Manual) Monocytes # (Manual) Eosinophils # (Manual) Basophils # (Manual) PT INR APTT ABG pH ABG pO2 ABG HCO3 ABG O2 Saturation ABG Base Excess ABG Hemoglobin Oxyhemoglobin Sodium Potassium Chloride Carbon Dioxide BUN Creatinine Glucose POC Glucose 138 H 130 H 146 H Lactic Acid Calcium Ionized Calcium Phosphorus Magnesium Total Bilirubin AST ALT Alkaline Phosphatase Ammonia Total Creatine Kinase CK-MB (CK-2) CK-MB (CK-2) Rel Index Total Protein Albumin Urine WBC (Auto) Vancomycin Trough Salicylates Acetaminophen Plasma/Serum Alcohol Crossmatch 12/28/19 12/29/19 12/29/19 17:39 00:01 18:11 WBC RBC Hgb Hct MCH RDW Plt Count Lymph % (Auto) Hitchcock % (Auto) Hitchcock # Baso # Seg Neutrophils % Seg Neuts % (Manual) Lymphocytes % (Manual) Monocytes % (Manual) Seg Neutrophils # Seg Neutrophils # Man Lymphocytes # (Manual) Monocytes # (Manual) Eosinophils # (Manual) Basophils # (Manual) PT INR APTT ABG pH ABG pO2 ABG HCO3 ABG O2 Saturation ABG Base Excess ABG Hemoglobin Oxyhemoglobin Sodium Potassium Chloride Carbon Dioxide BUN Creatinine Glucose POC Glucose 117 H 139 H 130 H Lactic Acid Calcium Ionized Calcium Phosphorus Magnesium Total Bilirubin AST ALT Alkaline Phosphatase Ammonia Total Creatine Kinase CK-MB (CK-2) CK-MB (CK-2) Rel Index Total Protein Albumin Urine WBC (Auto) Vancomycin Trough Salicylates Acetaminophen Plasma/Serum Alcohol Crossmatch 12/29/19 12/30/19 12/30/19 23:09 00:02 01:06 WBC 16.7 H RBC 2.91 L Hgb 8.2 L Hct 25.4 L MCH RDW 18.7 H Plt Count 708 H Lymph % (Auto) 9.4 L Hitchcock % (Auto) Hitchcock # 0.9 H Baso # Seg Neutrophils % 83.5 H Seg Neuts % (Manual) Lymphocytes % (Manual) Monocytes % (Manual) Seg Neutrophils # 14.0 H Seg Neutrophils # Man Lymphocytes # (Manual) Monocytes # (Manual) Eosinophils # (Manual) Basophils # (Manual) PT INR APTT ABG pH ABG pO2 ABG HCO3 ABG O2 Saturation ABG Base Excess ABG Hemoglobin Oxyhemoglobin Sodium Potassium Chloride Carbon Dioxide BUN Creatinine Glucose POC Glucose 120 H 114 H Lactic Acid Calcium Ionized Calcium Phosphorus Magnesium Total Bilirubin AST ALT Alkaline Phosphatase Ammonia Total Creatine Kinase CK-MB (CK-2) CK-MB (CK-2) Rel Index Total Protein Albumin Urine WBC (Auto) Vancomycin Trough Salicylates Acetaminophen Plasma/Serum Alcohol Crossmatch 12/30/19 12/30/19 12/30/19 01:06 04:23 05:18 WBC RBC Hgb Hct MCH RDW Plt Count Lymph % (Auto) Hitchcock % (Auto) Hitchcock # Baso # Seg Neutrophils % Seg Neuts % (Manual) Lymphocytes % (Manual) Monocytes % (Manual) Seg Neutrophils # Seg Neutrophils # Man Lymphocytes # (Manual) Monocytes # (Manual) Eosinophils # (Manual) Basophils # (Manual) PT INR APTT ABG pH ABG pO2 ABG HCO3 ABG O2 Saturation ABG Base Excess ABG Hemoglobin 8.3 L Oxyhemoglobin Sodium Potassium Chloride Carbon Dioxide BUN 70 H Creatinine Glucose 122 H POC Glucose 130 H Lactic Acid Calcium Ionized Calcium Phosphorus Magnesium Total Bilirubin AST ALT Alkaline Phosphatase Ammonia Total Creatine Kinase CK-MB (CK-2) CK-MB (CK-2) Rel Index Total Protein Albumin Urine WBC (Auto) Vancomycin Trough Salicylates Acetaminophen Plasma/Serum Alcohol Crossmatch 12/30/19 12/30/19 12/30/19 05:40 12:17 17:43 WBC RBC Hgb Hct MCH RDW Plt Count Lymph % (Auto) Hitchcock % (Auto) Hitchcock # Baso # Seg Neutrophils % Seg Neuts % (Manual) Lymphocytes % (Manual) Monocytes % (Manual) Seg Neutrophils # Seg Neutrophils # Man Lymphocytes # (Manual) Monocytes # (Manual) Eosinophils # (Manual) Basophils # (Manual) PT INR APTT ABG pH ABG pO2 ABG HCO3 ABG O2 Saturation ABG Base Excess ABG Hemoglobin Oxyhemoglobin Sodium Potassium Chloride Carbon Dioxide BUN Creatinine Glucose POC Glucose 135 H 132 H 118 H Lactic Acid Calcium Ionized Calcium Phosphorus Magnesium Total Bilirubin AST ALT Alkaline Phosphatase Ammonia Total Creatine Kinase CK-MB (CK-2) CK-MB (CK-2) Rel Index Total Protein Albumin Urine WBC (Auto) Vancomycin Trough Salicylates Acetaminophen Plasma/Serum Alcohol Crossmatch 12/30/19 12/31/19 12/31/19 23:29 05:19 17:50 WBC RBC Hgb Hct MCH RDW Plt Count Lymph % (Auto) Hitchcock % (Auto) Hitchcock # Baso # Seg Neutrophils % Seg Neuts % (Manual) Lymphocytes % (Manual) Monocytes % (Manual) Seg Neutrophils # Seg Neutrophils # Man Lymphocytes # (Manual) Monocytes # (Manual) Eosinophils # (Manual) Basophils # (Manual) PT INR APTT ABG pH ABG pO2 ABG HCO3 ABG O2 Saturation ABG Base Excess ABG Hemoglobin Oxyhemoglobin Sodium Potassium Chloride Carbon Dioxide BUN Creatinine Glucose POC Glucose 114 H 109 H 116 H Lactic Acid Calcium Ionized Calcium Phosphorus Magnesium Total Bilirubin AST ALT Alkaline Phosphatase Ammonia Total Creatine Kinase CK-MB (CK-2) CK-MB (CK-2) Rel Index Total Protein Albumin Urine WBC (Auto) Vancomycin Trough Salicylates Acetaminophen Plasma/Serum Alcohol Crossmatch 01/01/20 01/01/20 01/01/20 00:10 05:19 12:02 WBC RBC Hgb Hct MCH RDW Plt Count Lymph % (Auto) Hitchcock % (Auto) Hitchcock # Baso # Seg Neutrophils % Seg Neuts % (Manual) Lymphocytes % (Manual) Monocytes % (Manual) Seg Neutrophils # Seg Neutrophils # Man Lymphocytes # (Manual) Monocytes # (Manual) Eosinophils # (Manual) Basophils # (Manual) PT INR APTT ABG pH ABG pO2 ABG HCO3 ABG O2 Saturation ABG Base Excess ABG Hemoglobin Oxyhemoglobin Sodium Potassium Chloride Carbon Dioxide BUN Creatinine Glucose POC Glucose 131 H 122 H 136 H Lactic Acid Calcium Ionized Calcium Phosphorus Magnesium Total Bilirubin AST ALT Alkaline Phosphatase Ammonia Total Creatine Kinase CK-MB (CK-2) CK-MB (CK-2) Rel Index Total Protein Albumin Urine WBC (Auto) Vancomycin Trough Salicylates Acetaminophen Plasma/Serum Alcohol Crossmatch 01/02/20 01/02/20 01/02/20 00:24 05:36 11:41 WBC RBC Hgb Hct MCH RDW Plt Count Lymph % (Auto) Hitchcock % (Auto) Hitchcock # Baso # Seg Neutrophils % Seg Neuts % (Manual) Lymphocytes % (Manual) Monocytes % (Manual) Seg Neutrophils # Seg Neutrophils # Man Lymphocytes # (Manual) Monocytes # (Manual) Eosinophils # (Manual) Basophils # (Manual) PT INR APTT ABG pH ABG pO2 ABG HCO3 ABG O2 Saturation ABG Base Excess ABG Hemoglobin Oxyhemoglobin Sodium Potassium Chloride Carbon Dioxide BUN Creatinine Glucose POC Glucose 119 H 109 H 125 H Lactic Acid Calcium Ionized Calcium Phosphorus Magnesium Total Bilirubin AST ALT Alkaline Phosphatase Ammonia Total Creatine Kinase CK-MB (CK-2) CK-MB (CK-2) Rel Index Total Protein Albumin Urine WBC (Auto) Vancomycin Trough Salicylates Acetaminophen Plasma/Serum Alcohol Crossmatch 01/02/20 01/03/20 01/03/20 17:49 05:29 12:13 WBC RBC Hgb Hct MCH RDW Plt Count Lymph % (Auto) Hitchcock % (Auto) Hitchcock # Baso # Seg Neutrophils % Seg Neuts % (Manual) Lymphocytes % (Manual) Monocytes % (Manual) Seg Neutrophils # Seg Neutrophils # Man Lymphocytes # (Manual) Monocytes # (Manual) Eosinophils # (Manual) Basophils # (Manual) PT INR APTT ABG pH ABG pO2 ABG HCO3 ABG O2 Saturation ABG Base Excess ABG Hemoglobin Oxyhemoglobin Sodium Potassium Chloride Carbon Dioxide BUN Creatinine Glucose POC Glucose 130 H 132 H 113 H Lactic Acid Calcium Ionized Calcium Phosphorus Magnesium Total Bilirubin AST ALT Alkaline Phosphatase Ammonia Total Creatine Kinase CK-MB (CK-2) CK-MB (CK-2) Rel Index Total Protein Albumin Urine WBC (Auto) Vancomycin Trough Salicylates Acetaminophen Plasma/Serum Alcohol Crossmatch 01/03/20 01/04/20 01/04/20 17:32 00:19 05:26 WBC RBC Hgb Hct MCH RDW Plt Count Lymph % (Auto) Hitchcock % (Auto) Hitchcock # Baso # Seg Neutrophils % Seg Neuts % (Manual) Lymphocytes % (Manual) Monocytes % (Manual) Seg Neutrophils # Seg Neutrophils # Man Lymphocytes # (Manual) Monocytes # (Manual) Eosinophils # (Manual) Basophils # (Manual) PT INR APTT ABG pH ABG pO2 ABG HCO3 ABG O2 Saturation ABG Base Excess ABG Hemoglobin Oxyhemoglobin Sodium Potassium Chloride Carbon Dioxide BUN Creatinine Glucose POC Glucose 127 H 141 H 129 H Lactic Acid Calcium Ionized Calcium Phosphorus Magnesium Total Bilirubin AST ALT Alkaline Phosphatase Ammonia Total Creatine Kinase CK-MB (CK-2) CK-MB (CK-2) Rel Index Total Protein Albumin Urine WBC (Auto) Vancomycin Trough Salicylates Acetaminophen Plasma/Serum Alcohol Crossmatch 01/04/20 01/04/20 01/05/20 11:39 17:29 05:22 WBC RBC Hgb Hct MCH RDW Plt Count Lymph % (Auto) Hitchcock % (Auto) Hitchcock # Baso # Seg Neutrophils % Seg Neuts % (Manual) Lymphocytes % (Manual) Monocytes % (Manual) Seg Neutrophils # Seg Neutrophils # Man Lymphocytes # (Manual) Monocytes # (Manual) Eosinophils # (Manual) Basophils # (Manual) PT INR APTT ABG pH ABG pO2 ABG HCO3 ABG O2 Saturation ABG Base Excess ABG Hemoglobin Oxyhemoglobin Sodium Potassium Chloride Carbon Dioxide BUN Creatinine Glucose POC Glucose 167 H 132 H 121 H Lactic Acid Calcium Ionized Calcium Phosphorus Magnesium Total Bilirubin AST ALT Alkaline Phosphatase Ammonia Total Creatine Kinase CK-MB (CK-2) CK-MB (CK-2) Rel Index Total Protein Albumin Urine WBC (Auto) Vancomycin Trough Salicylates Acetaminophen Plasma/Serum Alcohol Crossmatch 01/05/20 01/05/20 01/05/20 12:25 17:40 18:06 WBC RBC Hgb Hct MCH RDW Plt Count Lymph % (Auto) Hitchcock % (Auto) Hitchcock # Baso # Seg Neutrophils % Seg Neuts % (Manual) Lymphocytes % (Manual) Monocytes % (Manual) Seg Neutrophils # Seg Neutrophils # Man Lymphocytes # (Manual) Monocytes # (Manual) Eosinophils # (Manual) Basophils # (Manual) PT INR APTT ABG pH 7.472 H ABG pO2 99.2 H ABG HCO3 ABG O2 Saturation ABG Base Excess ABG Hemoglobin 7.8 L Oxyhemoglobin Sodium Potassium Chloride Carbon Dioxide BUN Creatinine Glucose POC Glucose 106 H 110 H Lactic Acid Calcium Ionized Calcium Phosphorus Magnesium Total Bilirubin AST ALT Alkaline Phosphatase Ammonia Total Creatine Kinase CK-MB (CK-2) CK-MB (CK-2) Rel Index Total Protein Albumin Urine WBC (Auto) Vancomycin Trough Salicylates Acetaminophen Plasma/Serum Alcohol Crossmatch 01/06/20 01/06/20 01/06/20 00:11 05:16 11:30 WBC RBC Hgb Hct MCH RDW Plt Count Lymph % (Auto) Hitchcock % (Auto) Hitchcock # Baso # Seg Neutrophils % Seg Neuts % (Manual) Lymphocytes % (Manual) Monocytes % (Manual) Seg Neutrophils # Seg Neutrophils # Man Lymphocytes # (Manual) Monocytes # (Manual) Eosinophils # (Manual) Basophils # (Manual) PT INR APTT ABG pH ABG pO2 ABG HCO3 ABG O2 Saturation ABG Base Excess ABG Hemoglobin Oxyhemoglobin Sodium Potassium Chloride Carbon Dioxide BUN Creatinine Glucose POC Glucose 108 H 124 H 125 H Lactic Acid Calcium Ionized Calcium Phosphorus Magnesium Total Bilirubin AST ALT Alkaline Phosphatase Ammonia Total Creatine Kinase CK-MB (CK-2) CK-MB (CK-2) Rel Index Total Protein Albumin Urine WBC (Auto) Vancomycin Trough Salicylates Acetaminophen Plasma/Serum Alcohol Crossmatch 01/06/20 01/06/20 01/07/20 17:53 23:51 04:12 WBC 16.5 H RBC 3.29 L Hgb 9.3 L Hct 28.1 L MCH RDW 18.2 H Plt Count 526 H Lymph % (Auto) 8.4 L Hitchcock % (Auto) Hitchcock # 1.0 H Baso # Seg Neutrophils % 84.4 H Seg Neuts % (Manual) Lymphocytes % (Manual) Monocytes % (Manual) Seg Neutrophils # 13.9 H Seg Neutrophils # Man Lymphocytes # (Manual) Monocytes # (Manual) Eosinophils # (Manual) Basophils # (Manual) PT INR APTT ABG pH ABG pO2 ABG HCO3 ABG O2 Saturation ABG Base Excess ABG Hemoglobin Oxyhemoglobin Sodium Potassium Chloride Carbon Dioxide BUN Creatinine Glucose POC Glucose 166 H 128 H Lactic Acid Calcium Ionized Calcium Phosphorus Magnesium Total Bilirubin AST ALT Alkaline Phosphatase Ammonia Total Creatine Kinase CK-MB (CK-2) CK-MB (CK-2) Rel Index Total Protein Albumin Urine WBC (Auto) Vancomycin Trough Salicylates Acetaminophen Plasma/Serum Alcohol Crossmatch 01/07/20 01/07/20 01/07/20 04:12 04:45 11:51 WBC RBC Hgb Hct MCH RDW Plt Count Lymph % (Auto) Hitchcock % (Auto) Hitchcock # Baso # Seg Neutrophils % Seg Neuts % (Manual) Lymphocytes % (Manual) Monocytes % (Manual) Seg Neutrophils # Seg Neutrophils # Man Lymphocytes # (Manual) Monocytes # (Manual) Eosinophils # (Manual) Basophils # (Manual) PT INR APTT ABG pH ABG pO2 ABG HCO3 ABG O2 Saturation ABG Base Excess ABG Hemoglobin Oxyhemoglobin Sodium 136 L Potassium Chloride Carbon Dioxide 21 L BUN 44 H Creatinine 0.6 L Glucose 124 H POC Glucose 134 H 138 H Lactic Acid Calcium Ionized Calcium Phosphorus Magnesium Total Bilirubin AST ALT Alkaline Phosphatase Ammonia Total Creatine Kinase CK-MB (CK-2) CK-MB (CK-2) Rel Index Total Protein Albumin Urine WBC (Auto) Vancomycin Trough Salicylates Acetaminophen Plasma/Serum Alcohol Crossmatch 01/07/20 01/08/20 01/08/20 17:36 00:33 05:29 WBC RBC Hgb Hct MCH RDW Plt Count Lymph % (Auto) Hitchcock % (Auto) Hitchcock # Baso # Seg Neutrophils % Seg Neuts % (Manual) Lymphocytes % (Manual) Monocytes % (Manual) Seg Neutrophils # Seg Neutrophils # Man Lymphocytes # (Manual) Monocytes # (Manual) Eosinophils # (Manual) Basophils # (Manual) PT INR APTT ABG pH ABG pO2 ABG HCO3 ABG O2 Saturation ABG Base Excess ABG Hemoglobin Oxyhemoglobin Sodium Potassium Chloride Carbon Dioxide BUN Creatinine Glucose POC Glucose 128 H 119 H 124 H Lactic Acid Calcium Ionized Calcium Phosphorus Magnesium Total Bilirubin AST ALT Alkaline Phosphatase Ammonia Total Creatine Kinase CK-MB (CK-2) CK-MB (CK-2) Rel Index Total Protein Albumin Urine WBC (Auto) Vancomycin Trough Salicylates Acetaminophen Plasma/Serum Alcohol Crossmatch 01/08/20 01/08/20 01/08/20 12:51 20:25 23:22 WBC RBC Hgb Hct MCH RDW Plt Count Lymph % (Auto) Hitchcock % (Auto) Hitchcock # Baso # Seg Neutrophils % Seg Neuts % (Manual) Lymphocytes % (Manual) Monocytes % (Manual) Seg Neutrophils # Seg Neutrophils # Man Lymphocytes # (Manual) Monocytes # (Manual) Eosinophils # (Manual) Basophils # (Manual) PT INR APTT ABG pH ABG pO2 132.2 H ABG HCO3 ABG O2 Saturation ABG Base Excess ABG Hemoglobin Oxyhemoglobin Sodium Potassium Chloride Carbon Dioxide BUN Creatinine Glucose POC Glucose 128 H 127 H Lactic Acid Calcium Ionized Calcium Phosphorus Magnesium Total Bilirubin AST ALT Alkaline Phosphatase Ammonia Total Creatine Kinase CK-MB (CK-2) CK-MB (CK-2) Rel Index Total Protein Albumin Urine WBC (Auto) Vancomycin Trough Salicylates Acetaminophen Plasma/Serum Alcohol Crossmatch 01/09/20 01/09/20 01/09/20 05:48 08:51 11:29 WBC RBC Hgb Hct MCH RDW Plt Count Lymph % (Auto) Hitchcock % (Auto) Hitchcock # Baso # Seg Neutrophils % Seg Neuts % (Manual) Lymphocytes % (Manual) Monocytes % (Manual) Seg Neutrophils # Seg Neutrophils # Man Lymphocytes # (Manual) Monocytes # (Manual) Eosinophils # (Manual) Basophils # (Manual) PT INR APTT ABG pH ABG pO2 94.3 H ABG HCO3 ABG O2 Saturation ABG Base Excess ABG Hemoglobin 9.5 L Oxyhemoglobin Sodium Potassium Chloride Carbon Dioxide BUN Creatinine Glucose POC Glucose 120 H 112 H Lactic Acid Calcium Ionized Calcium Phosphorus Magnesium Total Bilirubin AST ALT Alkaline Phosphatase Ammonia Total Creatine Kinase CK-MB (CK-2) CK-MB (CK-2) Rel Index Total Protein Albumin Urine WBC (Auto) Vancomycin Trough Salicylates Acetaminophen Plasma/Serum Alcohol Crossmatch 01/09/20 01/10/20 01/10/20 17:57 05:17 12:28 WBC RBC Hgb Hct MCH RDW Plt Count Lymph % (Auto) Hitchcock % (Auto) Hitchcock # Baso # Seg Neutrophils % Seg Neuts % (Manual) Lymphocytes % (Manual) Monocytes % (Manual) Seg Neutrophils # Seg Neutrophils # Man Lymphocytes # (Manual) Monocytes # (Manual) Eosinophils # (Manual) Basophils # (Manual) PT INR APTT ABG pH ABG pO2 ABG HCO3 ABG O2 Saturation ABG Base Excess ABG Hemoglobin Oxyhemoglobin Sodium Potassium Chloride Carbon Dioxide BUN Creatinine Glucose POC Glucose 122 H 115 H 116 H Lactic Acid Calcium Ionized Calcium Phosphorus Magnesium Total Bilirubin AST ALT Alkaline Phosphatase Ammonia Total Creatine Kinase CK-MB (CK-2) CK-MB (CK-2) Rel Index Total Protein Albumin Urine WBC (Auto) Vancomycin Trough Salicylates Acetaminophen Plasma/Serum Alcohol Crossmatch 01/10/20 01/10/20 01/11/20 18:25 23:47 06:05 WBC RBC Hgb Hct MCH RDW Plt Count Lymph % (Auto) Hitchcock % (Auto) Hitchcock # Baso # Seg Neutrophils % Seg Neuts % (Manual) Lymphocytes % (Manual) Monocytes % (Manual) Seg Neutrophils # Seg Neutrophils # Man Lymphocytes # (Manual) Monocytes # (Manual) Eosinophils # (Manual) Basophils # (Manual) PT INR APTT ABG pH ABG pO2 ABG HCO3 ABG O2 Saturation ABG Base Excess ABG Hemoglobin Oxyhemoglobin Sodium Potassium Chloride Carbon Dioxide BUN Creatinine Glucose POC Glucose 123 H 115 H 151 H Lactic Acid Calcium Ionized Calcium Phosphorus Magnesium Total Bilirubin AST ALT Alkaline Phosphatase Ammonia Total Creatine Kinase CK-MB (CK-2) CK-MB (CK-2) Rel Index Total Protein Albumin Urine WBC (Auto) Vancomycin Trough Salicylates Acetaminophen Plasma/Serum Alcohol Crossmatch 01/11/20 01/11/20 01/11/20 07:00 07:00 12:27 WBC 11.8 H RBC 3.40 L Hgb 9.4 L Hct 29.3 L MCH RDW 18.1 H Plt Count 549 H Lymph % (Auto) Hitchcock % (Auto) 9.1 H Hitchcock # 1.1 H Baso # Seg Neutrophils % 73.3 H Seg Neuts % (Manual) Lymphocytes % (Manual) Monocytes % (Manual) Seg Neutrophils # 8.7 H Seg Neutrophils # Man Lymphocytes # (Manual) Monocytes # (Manual) Eosinophils # (Manual) Basophils # (Manual) PT INR APTT ABG pH ABG pO2 ABG HCO3 ABG O2 Saturation ABG Base Excess ABG Hemoglobin Oxyhemoglobin Sodium 134 L Potassium Chloride 97.7 L Carbon Dioxide 21 L BUN 38 H Creatinine 0.5 L Glucose 168 H POC Glucose 117 H Lactic Acid Calcium 10.5 H Ionized Calcium Phosphorus Magnesium Total Bilirubin AST ALT Alkaline Phosphatase Ammonia Total Creatine Kinase CK-MB (CK-2) CK-MB (CK-2) Rel Index Total Protein Albumin Urine WBC (Auto) Vancomycin Trough Salicylates Acetaminophen Plasma/Serum Alcohol Crossmatch 01/11/20 01/12/20 01/12/20 18:19 00:53 05:24 WBC RBC Hgb Hct MCH RDW Plt Count Lymph % (Auto) Hitchcock % (Auto) Hitchcock # Baso # Seg Neutrophils % Seg Neuts % (Manual) Lymphocytes % (Manual) Monocytes % (Manual) Seg Neutrophils # Seg Neutrophils # Man Lymphocytes # (Manual) Monocytes # (Manual) Eosinophils # (Manual) Basophils # (Manual) PT INR APTT ABG pH ABG pO2 ABG HCO3 ABG O2 Saturation ABG Base Excess ABG Hemoglobin Oxyhemoglobin Sodium Potassium Chloride Carbon Dioxide BUN Creatinine Glucose POC Glucose 126 H 126 H 128 H Lactic Acid Calcium Ionized Calcium Phosphorus Magnesium Total Bilirubin AST ALT Alkaline Phosphatase Ammonia Total Creatine Kinase CK-MB (CK-2) CK-MB (CK-2) Rel Index Total Protein Albumin Urine WBC (Auto) Vancomycin Trough Salicylates Acetaminophen Plasma/Serum Alcohol Crossmatch 01/12/20 01/12/20 01/13/20 13:39 18:02 00:27 WBC RBC Hgb Hct MCH RDW Plt Count Lymph % (Auto) Hitchcock % (Auto) Hitchcock # Baso # Seg Neutrophils % Seg Neuts % (Manual) Lymphocytes % (Manual) Monocytes % (Manual) Seg Neutrophils # Seg Neutrophils # Man Lymphocytes # (Manual) Monocytes # (Manual) Eosinophils # (Manual) Basophils # (Manual) PT INR APTT ABG pH ABG pO2 ABG HCO3 ABG O2 Saturation ABG Base Excess ABG Hemoglobin Oxyhemoglobin Sodium Potassium Chloride Carbon Dioxide BUN Creatinine Glucose POC Glucose 146 H 125 H 131 H Lactic Acid Calcium Ionized Calcium Phosphorus Magnesium Total Bilirubin AST ALT Alkaline Phosphatase Ammonia Total Creatine Kinase CK-MB (CK-2) CK-MB (CK-2) Rel Index Total Protein Albumin Urine WBC (Auto) Vancomycin Trough Salicylates Acetaminophen Plasma/Serum Alcohol Crossmatch 01/13/20 01/13/20 01/13/20 05:44 11:54 17:18 WBC RBC Hgb Hct MCH RDW Plt Count Lymph % (Auto) Hitchcock % (Auto) Hitchcock # Baso # Seg Neutrophils % Seg Neuts % (Manual) Lymphocytes % (Manual) Monocytes % (Manual) Seg Neutrophils # Seg Neutrophils # Man Lymphocytes # (Manual) Monocytes # (Manual) Eosinophils # (Manual) Basophils # (Manual) PT INR APTT ABG pH ABG pO2 ABG HCO3 ABG O2 Saturation ABG Base Excess ABG Hemoglobin Oxyhemoglobin Sodium Potassium Chloride Carbon Dioxide BUN Creatinine Glucose POC Glucose 148 H 140 H 130 H Lactic Acid Calcium Ionized Calcium Phosphorus Magnesium Total Bilirubin AST ALT Alkaline Phosphatase Ammonia Total Creatine Kinase CK-MB (CK-2) CK-MB (CK-2) Rel Index Total Protein Albumin Urine WBC (Auto) Vancomycin Trough Salicylates Acetaminophen Plasma/Serum Alcohol Crossmatch 01/14/20 01/14/20 01/14/20 00:16 05:45 12:19 WBC RBC Hgb Hct MCH RDW Plt Count Lymph % (Auto) Hitchcock % (Auto) Hitchcock # Baso # Seg Neutrophils % Seg Neuts % (Manual) Lymphocytes % (Manual) Monocytes % (Manual) Seg Neutrophils # Seg Neutrophils # Man Lymphocytes # (Manual) Monocytes # (Manual) Eosinophils # (Manual) Basophils # (Manual) PT INR APTT ABG pH ABG pO2 ABG HCO3 ABG O2 Saturation ABG Base Excess ABG Hemoglobin Oxyhemoglobin Sodium Potassium Chloride Carbon Dioxide BUN Creatinine Glucose POC Glucose 125 H 146 H 147 H Lactic Acid Calcium Ionized Calcium Phosphorus Magnesium Total Bilirubin AST ALT Alkaline Phosphatase Ammonia Total Creatine Kinase CK-MB (CK-2) CK-MB (CK-2) Rel Index Total Protein Albumin Urine WBC (Auto) Vancomycin Trough Salicylates Acetaminophen Plasma/Serum Alcohol Crossmatch 01/14/20 01/14/20 01/15/20 18:10 23:54 05:14 WBC RBC Hgb Hct MCH RDW Plt Count Lymph % (Auto) Hitchcock % (Auto) Hitchcock # Baso # Seg Neutrophils % Seg Neuts % (Manual) Lymphocytes % (Manual) Monocytes % (Manual) Seg Neutrophils # Seg Neutrophils # Man Lymphocytes # (Manual) Monocytes # (Manual) Eosinophils # (Manual) Basophils # (Manual) PT INR APTT ABG pH ABG pO2 ABG HCO3 ABG O2 Saturation ABG Base Excess ABG Hemoglobin Oxyhemoglobin Sodium Potassium Chloride Carbon Dioxide BUN Creatinine Glucose POC Glucose 136 H 109 H 111 H Lactic Acid Calcium Ionized Calcium Phosphorus Magnesium Total Bilirubin AST ALT Alkaline Phosphatase Ammonia Total Creatine Kinase CK-MB (CK-2) CK-MB (CK-2) Rel Index Total Protein Albumin Urine WBC (Auto) Vancomycin Trough Salicylates Acetaminophen Plasma/Serum Alcohol Crossmatch 01/15/20 01/15/20 01/16/20 12:34 23:25 05:06 WBC RBC Hgb Hct MCH RDW Plt Count Lymph % (Auto) Hitchcock % (Auto) Hitchcock # Baso # Seg Neutrophils % Seg Neuts % (Manual) Lymphocytes % (Manual) Monocytes % (Manual) Seg Neutrophils # Seg Neutrophils # Man Lymphocytes # (Manual) Monocytes # (Manual) Eosinophils # (Manual) Basophils # (Manual) PT INR APTT ABG pH ABG pO2 ABG HCO3 ABG O2 Saturation ABG Base Excess ABG Hemoglobin Oxyhemoglobin Sodium Potassium Chloride Carbon Dioxide BUN Creatinine Glucose POC Glucose 131 H 120 H 121 H Lactic Acid Calcium Ionized Calcium Phosphorus Magnesium Total Bilirubin AST ALT Alkaline Phosphatase Ammonia Total Creatine Kinase CK-MB (CK-2) CK-MB (CK-2) Rel Index Total Protein Albumin Urine WBC (Auto) Vancomycin Trough Salicylates Acetaminophen Plasma/Serum Alcohol Crossmatch 01/16/20 01/16/20 01/17/20 12:15 23:46 05:32 WBC 13.6 H RBC 3.27 L Hgb 9.3 L Hct 28.5 L MCH RDW 17.0 H Plt Count 490 H Lymph % (Auto) 13.1 L Hitchcock % (Auto) Hitchcock # 1.0 H Baso # Seg Neutrophils % 77.5 H Seg Neuts % (Manual) Lymphocytes % (Manual) Monocytes % (Manual) Seg Neutrophils # 10.5 H Seg Neutrophils # Man Lymphocytes # (Manual) Monocytes # (Manual) Eosinophils # (Manual) Basophils # (Manual) PT INR APTT ABG pH ABG pO2 ABG HCO3 ABG O2 Saturation ABG Base Excess ABG Hemoglobin Oxyhemoglobin Sodium Potassium Chloride Carbon Dioxide BUN Creatinine Glucose POC Glucose 152 H 107 H Lactic Acid Calcium Ionized Calcium Phosphorus Magnesium Total Bilirubin AST ALT Alkaline Phosphatase Ammonia Total Creatine Kinase CK-MB (CK-2) CK-MB (CK-2) Rel Index Total Protein Albumin Urine WBC (Auto) Vancomycin Trough Salicylates Acetaminophen Plasma/Serum Alcohol Crossmatch 01/17/20 01/17/20 01/17/20 06:47 12:16 17:21 WBC RBC Hgb Hct MCH RDW Plt Count Lymph % (Auto) Hitchcock % (Auto) Hitchcock # Baso # Seg Neutrophils % Seg Neuts % (Manual) Lymphocytes % (Manual) Monocytes % (Manual) Seg Neutrophils # Seg Neutrophils # Man Lymphocytes # (Manual) Monocytes # (Manual) Eosinophils # (Manual) Basophils # (Manual) PT INR APTT ABG pH ABG pO2 ABG HCO3 ABG O2 Saturation ABG Base Excess ABG Hemoglobin Oxyhemoglobin Sodium Potassium Chloride Carbon Dioxide BUN Creatinine Glucose POC Glucose 112 H 145 H 150 H Lactic Acid Calcium Ionized Calcium Phosphorus Magnesium Total Bilirubin AST ALT Alkaline Phosphatase Ammonia Total Creatine Kinase CK-MB (CK-2) CK-MB (CK-2) Rel Index Total Protein Albumin Urine WBC (Auto) Vancomycin Trough Salicylates Acetaminophen Plasma/Serum Alcohol Crossmatch 01/17/20 01/18/20 01/18/20 23:34 05:47 12:43 WBC RBC Hgb Hct MCH RDW Plt Count Lymph % (Auto) Hitchcock % (Auto) Hitchcock # Baso # Seg Neutrophils % Seg Neuts % (Manual) Lymphocytes % (Manual) Monocytes % (Manual) Seg Neutrophils # Seg Neutrophils # Man Lymphocytes # (Manual) Monocytes # (Manual) Eosinophils # (Manual) Basophils # (Manual) PT INR APTT ABG pH ABG pO2 ABG HCO3 ABG O2 Saturation ABG Base Excess ABG Hemoglobin Oxyhemoglobin Sodium Potassium Chloride Carbon Dioxide BUN Creatinine Glucose POC Glucose 160 H 130 H 124 H Lactic Acid Calcium Ionized Calcium Phosphorus Magnesium Total Bilirubin AST ALT Alkaline Phosphatase Ammonia Total Creatine Kinase CK-MB (CK-2) CK-MB (CK-2) Rel Index Total Protein Albumin Urine WBC (Auto) Vancomycin Trough Salicylates Acetaminophen Plasma/Serum Alcohol Crossmatch 01/18/20 01/19/20 01/19/20 18:26 00:14 06:24 WBC RBC Hgb Hct MCH RDW Plt Count Lymph % (Auto) Hitchcock % (Auto) Hitchcock # Baso # Seg Neutrophils % Seg Neuts % (Manual) Lymphocytes % (Manual) Monocytes % (Manual) Seg Neutrophils # Seg Neutrophils # Man Lymphocytes # (Manual) Monocytes # (Manual) Eosinophils # (Manual) Basophils # (Manual) PT INR APTT ABG pH ABG pO2 ABG HCO3 ABG O2 Saturation ABG Base Excess ABG Hemoglobin Oxyhemoglobin Sodium Potassium Chloride Carbon Dioxide BUN Creatinine Glucose POC Glucose 119 H 114 H 144 H Lactic Acid Calcium Ionized Calcium Phosphorus Magnesium Total Bilirubin AST ALT Alkaline Phosphatase Ammonia Total Creatine Kinase CK-MB (CK-2) CK-MB (CK-2) Rel Index Total Protein Albumin Urine WBC (Auto) Vancomycin Trough Salicylates Acetaminophen Plasma/Serum Alcohol Crossmatch 01/19/20 01/19/20 01/20/20 12:24 17:50 12:06 WBC RBC Hgb Hct MCH RDW Plt Count Lymph % (Auto) Hitchcock % (Auto) Hitchcock # Baso # Seg Neutrophils % Seg Neuts % (Manual) Lymphocytes % (Manual) Monocytes % (Manual) Seg Neutrophils # Seg Neutrophils # Man Lymphocytes # (Manual) Monocytes # (Manual) Eosinophils # (Manual) Basophils # (Manual) PT INR APTT ABG pH ABG pO2 ABG HCO3 ABG O2 Saturation ABG Base Excess ABG Hemoglobin Oxyhemoglobin Sodium Potassium Chloride Carbon Dioxide BUN Creatinine Glucose POC Glucose 132 H 144 H 135 H Lactic Acid Calcium Ionized Calcium Phosphorus Magnesium Total Bilirubin AST ALT Alkaline Phosphatase Ammonia Total Creatine Kinase CK-MB (CK-2) CK-MB (CK-2) Rel Index Total Protein Albumin Urine WBC (Auto) Vancomycin Trough Salicylates Acetaminophen Plasma/Serum Alcohol Crossmatch 01/21/20 01/21/20 01/21/20 05:46 13:02 23:49 WBC RBC Hgb Hct MCH RDW Plt Count Lymph % (Auto) Hitchcock % (Auto) Hitchcock # Baso # Seg Neutrophils % Seg Neuts % (Manual) Lymphocytes % (Manual) Monocytes % (Manual) Seg Neutrophils # Seg Neutrophils # Man Lymphocytes # (Manual) Monocytes # (Manual) Eosinophils # (Manual) Basophils # (Manual) PT INR APTT ABG pH ABG pO2 ABG HCO3 ABG O2 Saturation ABG Base Excess ABG Hemoglobin Oxyhemoglobin Sodium Potassium Chloride Carbon Dioxide BUN Creatinine Glucose POC Glucose 114 H 136 H 120 H Lactic Acid Calcium Ionized Calcium Phosphorus Magnesium Total Bilirubin AST ALT Alkaline Phosphatase Ammonia Total Creatine Kinase CK-MB (CK-2) CK-MB (CK-2) Rel Index Total Protein Albumin Urine WBC (Auto) Vancomycin Trough Salicylates Acetaminophen Plasma/Serum Alcohol Crossmatch 01/22/20 01/22/20 01/22/20 05:41 11:44 16:31 WBC RBC Hgb Hct MCH RDW Plt Count Lymph % (Auto) Hitchcock % (Auto) Hitchcock # Baso # Seg Neutrophils % Seg Neuts % (Manual) Lymphocytes % (Manual) Monocytes % (Manual) Seg Neutrophils # Seg Neutrophils # Man Lymphocytes # (Manual) Monocytes # (Manual) Eosinophils # (Manual) Basophils # (Manual) PT INR APTT ABG pH ABG pO2 ABG HCO3 ABG O2 Saturation ABG Base Excess ABG Hemoglobin Oxyhemoglobin Sodium Potassium Chloride Carbon Dioxide BUN Creatinine Glucose POC Glucose 124 H 173 H 111 H Lactic Acid Calcium Ionized Calcium Phosphorus Magnesium Total Bilirubin AST ALT Alkaline Phosphatase Ammonia Total Creatine Kinase CK-MB (CK-2) CK-MB (CK-2) Rel Index Total Protein Albumin Urine WBC (Auto) Vancomycin Trough Salicylates Acetaminophen Plasma/Serum Alcohol Crossmatch 01/22/20 01/23/20 01/23/20 23:25 05:15 12:15 WBC RBC Hgb Hct MCH RDW Plt Count Lymph % (Auto) Hitchcock % (Auto) Hitchcock # Baso # Seg Neutrophils % Seg Neuts % (Manual) Lymphocytes % (Manual) Monocytes % (Manual) Seg Neutrophils # Seg Neutrophils # Man Lymphocytes # (Manual) Monocytes # (Manual) Eosinophils # (Manual) Basophils # (Manual) PT INR APTT ABG pH ABG pO2 ABG HCO3 ABG O2 Saturation ABG Base Excess ABG Hemoglobin Oxyhemoglobin Sodium Potassium Chloride Carbon Dioxide BUN Creatinine Glucose POC Glucose 134 H 117 H 129 H Lactic Acid Calcium Ionized Calcium Phosphorus Magnesium Total Bilirubin AST ALT Alkaline Phosphatase Ammonia Total Creatine Kinase CK-MB (CK-2) CK-MB (CK-2) Rel Index Total Protein Albumin Urine WBC (Auto) Vancomycin Trough Salicylates Acetaminophen Plasma/Serum Alcohol Crossmatch 01/23/20 01/23/20 01/23/20 16:58 21:17 23:47 WBC RBC Hgb Hct MCH RDW Plt Count Lymph % (Auto) Hitchcock % (Auto) Hitchcock # Baso # Seg Neutrophils % Seg Neuts % (Manual) Lymphocytes % (Manual) Monocytes % (Manual) Seg Neutrophils # Seg Neutrophils # Man Lymphocytes # (Manual) Monocytes # (Manual) Eosinophils # (Manual) Basophils # (Manual) PT INR APTT ABG pH ABG pO2 ABG HCO3 ABG O2 Saturation ABG Base Excess ABG Hemoglobin Oxyhemoglobin Sodium Potassium Chloride Carbon Dioxide BUN Creatinine Glucose POC Glucose 156 H 185 H 156 H Lactic Acid Calcium Ionized Calcium Phosphorus Magnesium Total Bilirubin AST ALT Alkaline Phosphatase Ammonia Total Creatine Kinase CK-MB (CK-2) CK-MB (CK-2) Rel Index Total Protein Albumin Urine WBC (Auto) Vancomycin Trough Salicylates Acetaminophen Plasma/Serum Alcohol Crossmatch 01/24/20 01/24/20 01/24/20 04:47 04:47 05:59 WBC 17.8 H RBC 3.60 L Hgb Hct MCH RDW 16.2 H Plt Count 688 H Lymph % (Auto) 11.8 L Hitchcock % (Auto) 7.5 H Hitchcock # 1.3 H Baso # Seg Neutrophils % 79.9 H Seg Neuts % (Manual) Lymphocytes % (Manual) Monocytes % (Manual) Seg Neutrophils # 14.2 H Seg Neutrophils # Man Lymphocytes # (Manual) Monocytes # (Manual) Eosinophils # (Manual) Basophils # (Manual) PT INR APTT ABG pH ABG pO2 ABG HCO3 ABG O2 Saturation ABG Base Excess ABG Hemoglobin Oxyhemoglobin Sodium 131 L Potassium Chloride 91.2 L Carbon Dioxide BUN 22 H Creatinine 0.3 L Glucose 123 H POC Glucose 147 H Lactic Acid Calcium 10.9 H Ionized Calcium Phosphorus Magnesium Total Bilirubin AST ALT Alkaline Phosphatase Ammonia Total Creatine Kinase CK-MB (CK-2) CK-MB (CK-2) Rel Index Total Protein Albumin Urine WBC (Auto) Vancomycin Trough Salicylates Acetaminophen Plasma/Serum Alcohol Crossmatch 01/24/20 01/24/20 01/25/20 11:47 16:45 00:18 WBC RBC Hgb Hct MCH RDW Plt Count Lymph % (Auto) Hitchcock % (Auto) Hitchcock # Baso # Seg Neutrophils % Seg Neuts % (Manual) Lymphocytes % (Manual) Monocytes % (Manual) Seg Neutrophils # Seg Neutrophils # Man Lymphocytes # (Manual) Monocytes # (Manual) Eosinophils # (Manual) Basophils # (Manual) PT INR APTT ABG pH ABG pO2 ABG HCO3 ABG O2 Saturation ABG Base Excess ABG Hemoglobin Oxyhemoglobin Sodium Potassium Chloride Carbon Dioxide BUN Creatinine Glucose POC Glucose 114 H 108 H 119 H Lactic Acid Calcium Ionized Calcium Phosphorus Magnesium Total Bilirubin AST ALT Alkaline Phosphatase Ammonia Total Creatine Kinase CK-MB (CK-2) CK-MB (CK-2) Rel Index Total Protein Albumin Urine WBC (Auto) Vancomycin Trough Salicylates Acetaminophen Plasma/Serum Alcohol Crossmatch 01/25/20 01/25/20 01/25/20 07:18 11:58 16:56 WBC RBC Hgb Hct MCH RDW Plt Count Lymph % (Auto) Hitchcock % (Auto) Hitchcock # Baso # Seg Neutrophils % Seg Neuts % (Manual) Lymphocytes % (Manual) Monocytes % (Manual) Seg Neutrophils # Seg Neutrophils # Man Lymphocytes # (Manual) Monocytes # (Manual) Eosinophils # (Manual) Basophils # (Manual) PT INR APTT ABG pH ABG pO2 ABG HCO3 ABG O2 Saturation ABG Base Excess ABG Hemoglobin Oxyhemoglobin Sodium Potassium Chloride Carbon Dioxide BUN Creatinine Glucose POC Glucose 136 H 136 H 147 H Lactic Acid Calcium Ionized Calcium Phosphorus Magnesium Total Bilirubin AST ALT Alkaline Phosphatase Ammonia Total Creatine Kinase CK-MB (CK-2) CK-MB (CK-2) Rel Index Total Protein Albumin Urine WBC (Auto) Vancomycin Trough Salicylates Acetaminophen Plasma/Serum Alcohol Crossmatch 01/26/20 01/26/20 01/26/20 00:29 05:59 05:59 WBC 12.8 H RBC Hgb Hct MCH RDW 16.4 H Plt Count 743 H Lymph % (Auto) Hitchcock % (Auto) Hitchcock # 0.9 H Baso # Seg Neutrophils % 76.2 H Seg Neuts % (Manual) Lymphocytes % (Manual) Monocytes % (Manual) Seg Neutrophils # 9.8 H Seg Neutrophils # Man Lymphocytes # (Manual) Monocytes # (Manual) Eosinophils # (Manual) Basophils # (Manual) PT INR APTT ABG pH ABG pO2 ABG HCO3 ABG O2 Saturation ABG Base Excess ABG Hemoglobin Oxyhemoglobin Sodium 132 L Potassium Chloride 90.9 L Carbon Dioxide BUN 23 H Creatinine 0.4 L Glucose 122 H POC Glucose 107 H Lactic Acid Calcium 11.0 H Ionized Calcium Phosphorus Magnesium Total Bilirubin AST ALT Alkaline Phosphatase Ammonia Total Creatine Kinase CK-MB (CK-2) CK-MB (CK-2) Rel Index Total Protein Albumin Urine WBC (Auto) Vancomycin Trough Salicylates Acetaminophen Plasma/Serum Alcohol Crossmatch 01/26/20 01/26/20 01/26/20 06:27 12:06 16:49 WBC RBC Hgb Hct MCH RDW Plt Count Lymph % (Auto) Hitchcock % (Auto) Hitchcock # Baso # Seg Neutrophils % Seg Neuts % (Manual) Lymphocytes % (Manual) Monocytes % (Manual) Seg Neutrophils # Seg Neutrophils # Man Lymphocytes # (Manual) Monocytes # (Manual) Eosinophils # (Manual) Basophils # (Manual) PT INR APTT ABG pH ABG pO2 ABG HCO3 ABG O2 Saturation ABG Base Excess ABG Hemoglobin Oxyhemoglobin Sodium Potassium Chloride Carbon Dioxide BUN Creatinine Glucose POC Glucose 132 H 132 H 110 H Lactic Acid Calcium Ionized Calcium Phosphorus Magnesium Total Bilirubin AST ALT Alkaline Phosphatase Ammonia Total Creatine Kinase CK-MB (CK-2) CK-MB (CK-2) Rel Index Total Protein Albumin Urine WBC (Auto) Vancomycin Trough Salicylates Acetaminophen Plasma/Serum Alcohol Crossmatch 01/27/20 01/27/20 01/27/20 00:08 11:49 16:24 WBC RBC Hgb Hct MCH RDW Plt Count Lymph % (Auto) Hitchcock % (Auto) Hitchcock # Baso # Seg Neutrophils % Seg Neuts % (Manual) Lymphocytes % (Manual) Monocytes % (Manual) Seg Neutrophils # Seg Neutrophils # Man Lymphocytes # (Manual) Monocytes # (Manual) Eosinophils # (Manual) Basophils # (Manual) PT INR APTT ABG pH ABG pO2 ABG HCO3 ABG O2 Saturation ABG Base Excess ABG Hemoglobin Oxyhemoglobin Sodium Potassium Chloride Carbon Dioxide BUN Creatinine Glucose POC Glucose 107 H 119 H 129 H Lactic Acid Calcium Ionized Calcium Phosphorus Magnesium Total Bilirubin AST ALT Alkaline Phosphatase Ammonia Total Creatine Kinase CK-MB (CK-2) CK-MB (CK-2) Rel Index Total Protein Albumin Urine WBC (Auto) Vancomycin Trough Salicylates Acetaminophen Plasma/Serum Alcohol Crossmatch 01/27/20 01/28/20 01/28/20 18:28 01:00 06:22 WBC RBC Hgb Hct MCH RDW Plt Count Lymph % (Auto) Hitchcock % (Auto) Hitchcock # Baso # Seg Neutrophils % Seg Neuts % (Manual) Lymphocytes % (Manual) Monocytes % (Manual) Seg Neutrophils # Seg Neutrophils # Man Lymphocytes # (Manual) Monocytes # (Manual) Eosinophils # (Manual) Basophils # (Manual) PT INR APTT ABG pH ABG pO2 ABG HCO3 ABG O2 Saturation ABG Base Excess ABG Hemoglobin Oxyhemoglobin Sodium Potassium Chloride Carbon Dioxide BUN Creatinine Glucose POC Glucose 126 H 121 H 114 H Lactic Acid Calcium Ionized Calcium Phosphorus Magnesium Total Bilirubin AST ALT Alkaline Phosphatase Ammonia Total Creatine Kinase CK-MB (CK-2) CK-MB (CK-2) Rel Index Total Protein Albumin Urine WBC (Auto) Vancomycin Trough Salicylates Acetaminophen Plasma/Serum Alcohol Crossmatch 01/28/20 01/28/20 01/29/20 11:47 18:00 00:05 WBC RBC Hgb Hct MCH RDW Plt Count Lymph % (Auto) Hitchcock % (Auto) Hitchcock # Baso # Seg Neutrophils % Seg Neuts % (Manual) Lymphocytes % (Manual) Monocytes % (Manual) Seg Neutrophils # Seg Neutrophils # Man Lymphocytes # (Manual) Monocytes # (Manual) Eosinophils # (Manual) Basophils # (Manual) PT INR APTT ABG pH ABG pO2 ABG HCO3 ABG O2 Saturation ABG Base Excess ABG Hemoglobin Oxyhemoglobin Sodium Potassium Chloride Carbon Dioxide BUN Creatinine Glucose POC Glucose 106 H 117 H 127 H Lactic Acid Calcium Ionized Calcium Phosphorus Magnesium Total Bilirubin AST ALT Alkaline Phosphatase Ammonia Total Creatine Kinase CK-MB (CK-2) CK-MB (CK-2) Rel Index Total Protein Albumin Urine WBC (Auto) Vancomycin Trough Salicylates Acetaminophen Plasma/Serum Alcohol Crossmatch 01/29/20 01/29/20 01/29/20 06:04 11:40 16:38 WBC RBC Hgb Hct MCH RDW Plt Count Lymph % (Auto) Hitchcock % (Auto) Hitchcock # Baso # Seg Neutrophils % Seg Neuts % (Manual) Lymphocytes % (Manual) Monocytes % (Manual) Seg Neutrophils # Seg Neutrophils # Man Lymphocytes # (Manual) Monocytes # (Manual) Eosinophils # (Manual) Basophils # (Manual) PT INR APTT ABG pH ABG pO2 ABG HCO3 ABG O2 Saturation ABG Base Excess ABG Hemoglobin Oxyhemoglobin Sodium Potassium Chloride Carbon Dioxide BUN Creatinine Glucose POC Glucose 147 H 139 H 143 H Lactic Acid Calcium Ionized Calcium Phosphorus Magnesium Total Bilirubin AST ALT Alkaline Phosphatase Ammonia Total Creatine Kinase CK-MB (CK-2) CK-MB (CK-2) Rel Index Total Protein Albumin Urine WBC (Auto) Vancomycin Trough Salicylates Acetaminophen Plasma/Serum Alcohol Crossmatch 05/09/0701/30/20 01/30/20 23:46 06:43 12:07 WBC RBC Hgb Hct MCH RDW Plt Count Lymph % (Auto) Hitchcock % (Auto) Hitchcock # Baso # Seg Neutrophils % Seg Neuts % (Manual) Lymphocytes % (Manual) Monocytes % (Manual) Seg Neutrophils # Seg Neutrophils # Man Lymphocytes # (Manual) Monocytes # (Manual) Eosinophils # (Manual) Basophils # (Manual) PT INR APTT ABG pH ABG pO2 ABG HCO3 ABG O2 Saturation ABG Base Excess ABG Hemoglobin Oxyhemoglobin Sodium Potassium Chloride Carbon Dioxide BUN Creatinine Glucose POC Glucose 122 H 122 H 134 H Lactic Acid Calcium Ionized Calcium Phosphorus Magnesium Total Bilirubin AST ALT Alkaline Phosphatase Ammonia Total Creatine Kinase CK-MB (CK-2) CK-MB (CK-2) Rel Index Total Protein Albumin Urine WBC (Auto) Vancomycin Trough Salicylates Acetaminophen Plasma/Serum Alcohol Crossmatch 01/30/20 01/31/20 01/31/20 17:59 00:52 05:54 WBC RBC Hgb Hct MCH RDW Plt Count Lymph % (Auto) Hitchcock % (Auto) Hitchcock # Baso # Seg Neutrophils % Seg Neuts % (Manual) Lymphocytes % (Manual) Monocytes % (Manual) Seg Neutrophils # Seg Neutrophils # Man Lymphocytes # (Manual) Monocytes # (Manual) Eosinophils # (Manual) Basophils # (Manual) PT INR APTT ABG pH ABG pO2 ABG HCO3 ABG O2 Saturation ABG Base Excess ABG Hemoglobin Oxyhemoglobin Sodium Potassium Chloride Carbon Dioxide BUN Creatinine Glucose POC Glucose 116 H 127 H 127 H Lactic Acid Calcium Ionized Calcium Phosphorus Magnesium Total Bilirubin AST ALT Alkaline Phosphatase Ammonia Total Creatine Kinase CK-MB (CK-2) CK-MB (CK-2) Rel Index Total Protein Albumin Urine WBC (Auto) Vancomycin Trough Salicylates Acetaminophen Plasma/Serum Alcohol Crossmatch 01/31/20 02/01/20 02/01/20 12:20 00:48 12:21 WBC RBC Hgb Hct MCH RDW Plt Count Lymph % (Auto) Hitchcock % (Auto) Hitchcock # Baso # Seg Neutrophils % Seg Neuts % (Manual) Lymphocytes % (Manual) Monocytes % (Manual) Seg Neutrophils # Seg Neutrophils # Man Lymphocytes # (Manual) Monocytes # (Manual) Eosinophils # (Manual) Basophils # (Manual) PT INR APTT ABG pH ABG pO2 ABG HCO3 ABG O2 Saturation ABG Base Excess ABG Hemoglobin Oxyhemoglobin Sodium Potassium Chloride Carbon Dioxide BUN Creatinine Glucose POC Glucose 126 H 154 H 123 H Lactic Acid Calcium Ionized Calcium Phosphorus Magnesium Total Bilirubin AST ALT Alkaline Phosphatase Ammonia Total Creatine Kinase CK-MB (CK-2) CK-MB (CK-2) Rel Index Total Protein Albumin Urine WBC (Auto) Vancomycin Trough Salicylates Acetaminophen Plasma/Serum Alcohol Crossmatch 02/01/20 02/02/20 02/02/20 23:58 06:08 11:50 WBC RBC Hgb Hct MCH RDW Plt Count Lymph % (Auto) Hitchcock % (Auto) Hitchcock # Baso # Seg Neutrophils % Seg Neuts % (Manual) Lymphocytes % (Manual) Monocytes % (Manual) Seg Neutrophils # Seg Neutrophils # Man Lymphocytes # (Manual) Monocytes # (Manual) Eosinophils # (Manual) Basophils # (Manual) PT INR APTT ABG pH ABG pO2 ABG HCO3 ABG O2 Saturation ABG Base Excess ABG Hemoglobin Oxyhemoglobin Sodium Potassium Chloride Carbon Dioxide BUN Creatinine Glucose POC Glucose 125 H 144 H 131 H Lactic Acid Calcium Ionized Calcium Phosphorus Magnesium Total Bilirubin AST ALT Alkaline Phosphatase Ammonia Total Creatine Kinase CK-MB (CK-2) CK-MB (CK-2) Rel Index Total Protein Albumin Urine WBC (Auto) Vancomycin Trough Salicylates Acetaminophen Plasma/Serum Alcohol Crossmatch 02/02/20 02/03/20 02/03/20 17:53 00:14 05:47 WBC RBC Hgb Hct MCH RDW Plt Count Lymph % (Auto) Hitchcock % (Auto) Hitchcock # Baso # Seg Neutrophils % Seg Neuts % (Manual) Lymphocytes % (Manual) Monocytes % (Manual) Seg Neutrophils # Seg Neutrophils # Man Lymphocytes # (Manual) Monocytes # (Manual) Eosinophils # (Manual) Basophils # (Manual) PT INR APTT ABG pH ABG pO2 ABG HCO3 ABG O2 Saturation ABG Base Excess ABG Hemoglobin Oxyhemoglobin Sodium Potassium Chloride Carbon Dioxide BUN Creatinine Glucose POC Glucose 108 H 122 H 118 H Lactic Acid Calcium Ionized Calcium Phosphorus Magnesium Total Bilirubin AST ALT Alkaline Phosphatase Ammonia Total Creatine Kinase CK-MB (CK-2) CK-MB (CK-2) Rel Index Total Protein Albumin Urine WBC (Auto) Vancomycin Trough Salicylates Acetaminophen Plasma/Serum Alcohol Crossmatch 02/03/20 02/03/20 02/03/20 05:59 05:59 11:49 WBC RBC 3.48 L Hgb Hct 29.9 L MCH RDW 16.2 H Plt Count 707 H Lymph % (Auto) Hitchcock % (Auto) 9.3 H Hitchcock # 0.9 H Baso # Seg Neutrophils % Seg Neuts % (Manual) Lymphocytes % (Manual) Monocytes % (Manual) Seg Neutrophils # Seg Neutrophils # Man Lymphocytes # (Manual) Monocytes # (Manual) Eosinophils # (Manual) Basophils # (Manual) PT INR APTT ABG pH ABG pO2 ABG HCO3 ABG O2 Saturation ABG Base Excess ABG Hemoglobin Oxyhemoglobin Sodium 136 L Potassium Chloride 93.4 L Carbon Dioxide BUN 20 H Creatinine 0.5 L Glucose 101 H POC Glucose 133 H Lactic Acid Calcium 10.8 H Ionized Calcium Phosphorus Magnesium Total Bilirubin AST ALT Alkaline Phosphatase Ammonia Total Creatine Kinase CK-MB (CK-2) CK-MB (CK-2) Rel Index Total Protein Albumin Urine WBC (Auto) Vancomycin Trough Salicylates Acetaminophen Plasma/Serum Alcohol Crossmatch 02/03/20 02/04/20 02/04/20 23:19 05:37 23:56 WBC RBC Hgb Hct MCH RDW Plt Count Lymph % (Auto) Hitchcock % (Auto) Hitchcock # Baso # Seg Neutrophils % Seg Neuts % (Manual) Lymphocytes % (Manual) Monocytes % (Manual) Seg Neutrophils # Seg Neutrophils # Man Lymphocytes # (Manual) Monocytes # (Manual) Eosinophils # (Manual) Basophils # (Manual) PT INR APTT ABG pH ABG pO2 ABG HCO3 ABG O2 Saturation ABG Base Excess ABG Hemoglobin Oxyhemoglobin Sodium Potassium Chloride Carbon Dioxide BUN Creatinine Glucose POC Glucose 135 H 108 H 158 H Lactic Acid Calcium Ionized Calcium Phosphorus Magnesium Total Bilirubin AST ALT Alkaline Phosphatase Ammonia Total Creatine Kinase CK-MB (CK-2) CK-MB (CK-2) Rel Index Total Protein Albumin Urine WBC (Auto) Vancomycin Trough Salicylates Acetaminophen Plasma/Serum Alcohol Crossmatch 02/05/20 02/05/20 02/06/20 05:33 23:24 05:50 WBC RBC Hgb Hct MCH RDW Plt Count Lymph % (Auto) Hitchcock % (Auto) Hitchcock # Baso # Seg Neutrophils % Seg Neuts % (Manual) Lymphocytes % (Manual) Monocytes % (Manual) Seg Neutrophils # Seg Neutrophils # Man Lymphocytes # (Manual) Monocytes # (Manual) Eosinophils # (Manual) Basophils # (Manual) PT INR APTT ABG pH ABG pO2 ABG HCO3 ABG O2 Saturation ABG Base Excess ABG Hemoglobin Oxyhemoglobin Sodium Potassium Chloride Carbon Dioxide BUN Creatinine Glucose POC Glucose 152 H 158 H 110 H Lactic Acid Calcium Ionized Calcium Phosphorus Magnesium Total Bilirubin AST ALT Alkaline Phosphatase Ammonia Total Creatine Kinase CK-MB (CK-2) CK-MB (CK-2) Rel Index Total Protein Albumin Urine WBC (Auto) Vancomycin Trough Salicylates Acetaminophen Plasma/Serum Alcohol Crossmatch 02/06/20 02/07/20 02/07/20 16:03 00:13 05:27 WBC RBC Hgb Hct MCH RDW Plt Count Lymph % (Auto) Hitchcock % (Auto) Hitchcock # Baso # Seg Neutrophils % Seg Neuts % (Manual) Lymphocytes % (Manual) Monocytes % (Manual) Seg Neutrophils # Seg Neutrophils # Man Lymphocytes # (Manual) Monocytes # (Manual) Eosinophils # (Manual) Basophils # (Manual) PT INR APTT ABG pH ABG pO2 ABG HCO3 ABG O2 Saturation ABG Base Excess ABG Hemoglobin Oxyhemoglobin Sodium Potassium Chloride Carbon Dioxide BUN Creatinine Glucose POC Glucose 130 H 115 H 115 H Lactic Acid Calcium Ionized Calcium Phosphorus Magnesium Total Bilirubin AST ALT Alkaline Phosphatase Ammonia Total Creatine Kinase CK-MB (CK-2) CK-MB (CK-2) Rel Index Total Protein Albumin Urine WBC (Auto) Vancomycin Trough Salicylates Acetaminophen Plasma/Serum Alcohol Crossmatch 02/07/20 02/07/20 02/08/20 11:42 17:23 00:37 WBC RBC Hgb Hct MCH RDW Plt Count Lymph % (Auto) Hitchcock % (Auto) Hitchcock # Baso # Seg Neutrophils % Seg Neuts % (Manual) Lymphocytes % (Manual) Monocytes % (Manual) Seg Neutrophils # Seg Neutrophils # Man Lymphocytes # (Manual) Monocytes # (Manual) Eosinophils # (Manual) Basophils # (Manual) PT INR APTT ABG pH ABG pO2 ABG HCO3 ABG O2 Saturation ABG Base Excess ABG Hemoglobin Oxyhemoglobin Sodium Potassium Chloride Carbon Dioxide BUN Creatinine Glucose POC Glucose 113 H 114 H 136 H Lactic Acid Calcium Ionized Calcium Phosphorus Magnesium Total Bilirubin AST ALT Alkaline Phosphatase Ammonia Total Creatine Kinase CK-MB (CK-2) CK-MB (CK-2) Rel Index Total Protein Albumin Urine WBC (Auto) Vancomycin Trough Salicylates Acetaminophen Plasma/Serum Alcohol Crossmatch 02/08/20 02/08/20 02/08/20 08:52 11:42 17:02 WBC RBC Hgb Hct MCH RDW Plt Count Lymph % (Auto) Hitchcock % (Auto) Hitchcock # Baso # Seg Neutrophils % Seg Neuts % (Manual) Lymphocytes % (Manual) Monocytes % (Manual) Seg Neutrophils # Seg Neutrophils # Man Lymphocytes # (Manual) Monocytes # (Manual) Eosinophils # (Manual) Basophils # (Manual) PT INR APTT ABG pH ABG pO2 ABG HCO3 ABG O2 Saturation ABG Base Excess ABG Hemoglobin Oxyhemoglobin Sodium 136 L Potassium Chloride 95.7 L Carbon Dioxide BUN 21 H Creatinine 0.4 L Glucose POC Glucose 128 H 145 H Lactic Acid Calcium 10.4 H Ionized Calcium Phosphorus Magnesium Total Bilirubin AST ALT Alkaline Phosphatase Ammonia Total Creatine Kinase CK-MB (CK-2) CK-MB (CK-2) Rel Index Total Protein Albumin Urine WBC (Auto) Vancomycin Trough Salicylates Acetaminophen Plasma/Serum Alcohol Crossmatch 02/09/20 02/09/20 02/09/20 01:05 11:52 16:19 WBC RBC Hgb Hct MCH RDW Plt Count Lymph % (Auto) Hitchcock % (Auto) Hitchcock # Baso # Seg Neutrophils % Seg Neuts % (Manual) Lymphocytes % (Manual) Monocytes % (Manual) Seg Neutrophils # Seg Neutrophils # Man Lymphocytes # (Manual) Monocytes # (Manual) Eosinophils # (Manual) Basophils # (Manual) PT INR APTT ABG pH ABG pO2 ABG HCO3 ABG O2 Saturation ABG Base Excess ABG Hemoglobin Oxyhemoglobin Sodium Potassium Chloride Carbon Dioxide BUN Creatinine Glucose POC Glucose 117 H 141 H 113 H Lactic Acid Calcium Ionized Calcium Phosphorus Magnesium Total Bilirubin AST ALT Alkaline Phosphatase Ammonia Total Creatine Kinase CK-MB (CK-2) CK-MB (CK-2) Rel Index Total Protein Albumin Urine WBC (Auto) Vancomycin Trough Salicylates Acetaminophen Plasma/Serum Alcohol Crossmatch 02/10/20 02/10/20 02/10/20 05:25 12:50 17:08 WBC RBC Hgb Hct MCH RDW Plt Count Lymph % (Auto) Hitchcock % (Auto) Hitchcock # Baso # Seg Neutrophils % Seg Neuts % (Manual) Lymphocytes % (Manual) Monocytes % (Manual) Seg Neutrophils # Seg Neutrophils # Man Lymphocytes # (Manual) Monocytes # (Manual) Eosinophils # (Manual) Basophils # (Manual) PT INR APTT ABG pH ABG pO2 ABG HCO3 ABG O2 Saturation ABG Base Excess ABG Hemoglobin Oxyhemoglobin Sodium Potassium Chloride Carbon Dioxide BUN Creatinine Glucose POC Glucose 136 H 127 H 111 H Lactic Acid Calcium Ionized Calcium Phosphorus Magnesium Total Bilirubin AST ALT Alkaline Phosphatase Ammonia Total Creatine Kinase CK-MB (CK-2) CK-MB (CK-2) Rel Index Total Protein Albumin Urine WBC (Auto) Vancomycin Trough Salicylates Acetaminophen Plasma/Serum Alcohol Crossmatch 02/10/20 02/11/20 02/11/20 23:55 06:11 12:07 WBC RBC Hgb Hct MCH RDW Plt Count Lymph % (Auto) Hitchcock % (Auto) Hitchcock # Baso # Seg Neutrophils % Seg Neuts % (Manual) Lymphocytes % (Manual) Monocytes % (Manual) Seg Neutrophils # Seg Neutrophils # Man Lymphocytes # (Manual) Monocytes # (Manual) Eosinophils # (Manual) Basophils # (Manual) PT INR APTT ABG pH ABG pO2 ABG HCO3 ABG O2 Saturation ABG Base Excess ABG Hemoglobin Oxyhemoglobin Sodium Potassium Chloride Carbon Dioxide BUN Creatinine Glucose POC Glucose 129 H 128 H 141 H Lactic Acid Calcium Ionized Calcium Phosphorus Magnesium Total Bilirubin AST ALT Alkaline Phosphatase Ammonia Total Creatine Kinase CK-MB (CK-2) CK-MB (CK-2) Rel Index Total Protein Albumin Urine WBC (Auto) Vancomycin Trough Salicylates Acetaminophen Plasma/Serum Alcohol Crossmatch 02/11/20 02/12/20 02/13/20 18:22 02:39 06:45 WBC RBC Hgb Hct MCH RDW Plt Count Lymph % (Auto) Hitchcock % (Auto) Hitchcock # Baso # Seg Neutrophils % Seg Neuts % (Manual) Lymphocytes % (Manual) Monocytes % (Manual) Seg Neutrophils # Seg Neutrophils # Man Lymphocytes # (Manual) Monocytes # (Manual) Eosinophils # (Manual) Basophils # (Manual) PT INR APTT ABG pH ABG pO2 ABG HCO3 ABG O2 Saturation ABG Base Excess ABG Hemoglobin Oxyhemoglobin Sodium Potassium Chloride Carbon Dioxide BUN Creatinine Glucose POC Glucose 118 H 107 H 124 H Lactic Acid Calcium Ionized Calcium Phosphorus Magnesium Total Bilirubin AST ALT Alkaline Phosphatase Ammonia Total Creatine Kinase CK-MB (CK-2) CK-MB (CK-2) Rel Index Total Protein Albumin Urine WBC (Auto) Vancomycin Trough Salicylates Acetaminophen Plasma/Serum Alcohol Crossmatch 02/13/20 02/13/20 02/14/20 12:26 18:19 00:21 WBC RBC Hgb Hct MCH RDW Plt Count Lymph % (Auto) Hitchcock % (Auto) Hitchcock # Baso # Seg Neutrophils % Seg Neuts % (Manual) Lymphocytes % (Manual) Monocytes % (Manual) Seg Neutrophils # Seg Neutrophils # Man Lymphocytes # (Manual) Monocytes # (Manual) Eosinophils # (Manual) Basophils # (Manual) PT INR APTT ABG pH ABG pO2 ABG HCO3 ABG O2 Saturation ABG Base Excess ABG Hemoglobin Oxyhemoglobin Sodium Potassium Chloride Carbon Dioxide BUN Creatinine Glucose POC Glucose 124 H 118 H 130 H Lactic Acid Calcium Ionized Calcium Phosphorus Magnesium Total Bilirubin AST ALT Alkaline Phosphatase Ammonia Total Creatine Kinase CK-MB (CK-2) CK-MB (CK-2) Rel Index Total Protein Albumin Urine WBC (Auto) Vancomycin Trough Salicylates Acetaminophen Plasma/Serum Alcohol Crossmatch 02/14/20 02/14/20 02/16/20 11:19 16:16 00:58 WBC RBC Hgb Hct MCH RDW Plt Count Lymph % (Auto) Hitchcock % (Auto) Hitchcock # Baso # Seg Neutrophils % Seg Neuts % (Manual) Lymphocytes % (Manual) Monocytes % (Manual) Seg Neutrophils # Seg Neutrophils # Man Lymphocytes # (Manual) Monocytes # (Manual) Eosinophils # (Manual) Basophils # (Manual) PT INR APTT ABG pH ABG pO2 ABG HCO3 ABG O2 Saturation ABG Base Excess ABG Hemoglobin Oxyhemoglobin Sodium Potassium Chloride Carbon Dioxide BUN Creatinine Glucose POC Glucose 135 H 119 H 121 H Lactic Acid Calcium Ionized Calcium Phosphorus Magnesium Total Bilirubin AST ALT Alkaline Phosphatase Ammonia Total Creatine Kinase CK-MB (CK-2) CK-MB (CK-2) Rel Index Total Protein Albumin Urine WBC (Auto) Vancomycin Trough Salicylates Acetaminophen Plasma/Serum Alcohol Crossmatch 02/16/20 02/16/20 02/16/20 12:12 18:22 23:51 WBC RBC Hgb Hct MCH RDW Plt Count Lymph % (Auto) Hitchcock % (Auto) Hitchcock # Baso # Seg Neutrophils % Seg Neuts % (Manual) Lymphocytes % (Manual) Monocytes % (Manual) Seg Neutrophils # Seg Neutrophils # Man Lymphocytes # (Manual) Monocytes # (Manual) Eosinophils # (Manual) Basophils # (Manual) PT INR APTT ABG pH ABG pO2 ABG HCO3 ABG O2 Saturation ABG Base Excess ABG Hemoglobin Oxyhemoglobin Sodium Potassium Chloride Carbon Dioxide BUN Creatinine Glucose POC Glucose 107 H 106 H 128 H Lactic Acid Calcium Ionized Calcium Phosphorus Magnesium Total Bilirubin AST ALT Alkaline Phosphatase Ammonia Total Creatine Kinase CK-MB (CK-2) CK-MB (CK-2) Rel Index Total Protein Albumin Urine WBC (Auto) Vancomycin Trough Salicylates Acetaminophen Plasma/Serum Alcohol Crossmatch 02/17/20 02/17/20 02/17/20 05:50 07:57 07:57 WBC 12.6 H RBC 3.52 L Hgb Hct MCH RDW 15.3 H Plt Count 643 H Lymph % (Auto) Hitchcock % (Auto) 8.0 H Hitchcock # 1.0 H Baso # Seg Neutrophils % Seg Neuts % (Manual) Lymphocytes % (Manual) Monocytes % (Manual) Seg Neutrophils # 8.5 H Seg Neutrophils # Man Lymphocytes # (Manual) Monocytes # (Manual) Eosinophils # (Manual) Basophils # (Manual) PT INR APTT ABG pH ABG pO2 ABG HCO3 ABG O2 Saturation ABG Base Excess ABG Hemoglobin Oxyhemoglobin Sodium Potassium Chloride 96.9 L Carbon Dioxide BUN 21 H Creatinine 0.4 L Glucose 113 H POC Glucose 116 H Lactic Acid Calcium 10.5 H Ionized Calcium Phosphorus Magnesium Total Bilirubin AST ALT Alkaline Phosphatase Ammonia Total Creatine Kinase CK-MB (CK-2) CK-MB (CK-2) Rel Index Total Protein Albumin Urine WBC (Auto) Vancomycin Trough Salicylates Acetaminophen Plasma/Serum Alcohol Crossmatch 02/17/20 02/17/20 02/18/20 12:05 18:16 00:13 WBC RBC Hgb Hct MCH RDW Plt Count Lymph % (Auto) Hitchcock % (Auto) Hitchcock # Baso # Seg Neutrophils % Seg Neuts % (Manual) Lymphocytes % (Manual) Monocytes % (Manual) Seg Neutrophils # Seg Neutrophils # Man Lymphocytes # (Manual) Monocytes # (Manual) Eosinophils # (Manual) Basophils # (Manual) PT INR APTT ABG pH ABG pO2 ABG HCO3 ABG O2 Saturation ABG Base Excess ABG Hemoglobin Oxyhemoglobin Sodium Potassium Chloride Carbon Dioxide BUN Creatinine Glucose POC Glucose 139 H 127 H 144 H Lactic Acid Calcium Ionized Calcium Phosphorus Magnesium Total Bilirubin AST ALT Alkaline Phosphatase Ammonia Total Creatine Kinase CK-MB (CK-2) CK-MB (CK-2) Rel Index Total Protein Albumin Urine WBC (Auto) Vancomycin Trough Salicylates Acetaminophen Plasma/Serum Alcohol Crossmatch 02/18/20 02/18/20 02/19/20 17:41 23:28 05:17 WBC RBC Hgb Hct MCH RDW Plt Count Lymph % (Auto) Hitchcock % (Auto) Hitchcock # Baso # Seg Neutrophils % Seg Neuts % (Manual) Lymphocytes % (Manual) Monocytes % (Manual) Seg Neutrophils # Seg Neutrophils # Man Lymphocytes # (Manual) Monocytes # (Manual) Eosinophils # (Manual) Basophils # (Manual) PT INR APTT ABG pH ABG pO2 ABG HCO3 ABG O2 Saturation ABG Base Excess ABG Hemoglobin Oxyhemoglobin Sodium Potassium Chloride Carbon Dioxide BUN Creatinine Glucose POC Glucose 118 H 166 H 116 H Lactic Acid Calcium Ionized Calcium Phosphorus Magnesium Total Bilirubin AST ALT Alkaline Phosphatase Ammonia Total Creatine Kinase CK-MB (CK-2) CK-MB (CK-2) Rel Index Total Protein Albumin Urine WBC (Auto) Vancomycin Trough Salicylates Acetaminophen Plasma/Serum Alcohol Crossmatch 02/19/20 02/19/20 02/20/20 12:33 17:02 00:12 WBC RBC Hgb Hct MCH RDW Plt Count Lymph % (Auto) Hitchcock % (Auto) Hitchcock # Baso # Seg Neutrophils % Seg Neuts % (Manual) Lymphocytes % (Manual) Monocytes % (Manual) Seg Neutrophils # Seg Neutrophils # Man Lymphocytes # (Manual) Monocytes # (Manual) Eosinophils # (Manual) Basophils # (Manual) PT INR APTT ABG pH ABG pO2 ABG HCO3 ABG O2 Saturation ABG Base Excess ABG Hemoglobin Oxyhemoglobin Sodium Potassium Chloride Carbon Dioxide BUN Creatinine Glucose POC Glucose 115 H 108 H 153 H Lactic Acid Calcium Ionized Calcium Phosphorus Magnesium Total Bilirubin AST ALT Alkaline Phosphatase Ammonia Total Creatine Kinase CK-MB (CK-2) CK-MB (CK-2) Rel Index Total Protein Albumin Urine WBC (Auto) Vancomycin Trough Salicylates Acetaminophen Plasma/Serum Alcohol Crossmatch 02/20/20 02/20/20 02/21/20 12:00 23:13 05:07 WBC RBC Hgb Hct MCH RDW Plt Count Lymph % (Auto) Hitchcock % (Auto) Hitchcock # Baso # Seg Neutrophils % Seg Neuts % (Manual) Lymphocytes % (Manual) Monocytes % (Manual) Seg Neutrophils # Seg Neutrophils # Man Lymphocytes # (Manual) Monocytes # (Manual) Eosinophils # (Manual) Basophils # (Manual) PT INR APTT ABG pH ABG pO2 ABG HCO3 ABG O2 Saturation ABG Base Excess ABG Hemoglobin Oxyhemoglobin Sodium Potassium Chloride Carbon Dioxide BUN Creatinine Glucose POC Glucose 171 H 129 H 116 H Lactic Acid Calcium Ionized Calcium Phosphorus Magnesium Total Bilirubin AST ALT Alkaline Phosphatase Ammonia Total Creatine Kinase CK-MB (CK-2) CK-MB (CK-2) Rel Index Total Protein Albumin Urine WBC (Auto) Vancomycin Trough Salicylates Acetaminophen Plasma/Serum Alcohol Crossmatch 02/21/20 02/22/20 02/22/20 12:15 00:42 06:30 WBC RBC Hgb Hct MCH RDW Plt Count Lymph % (Auto) Hitchcock % (Auto) Hitchcock # Baso # Seg Neutrophils % Seg Neuts % (Manual) Lymphocytes % (Manual) Monocytes % (Manual) Seg Neutrophils # Seg Neutrophils # Man Lymphocytes # (Manual) Monocytes # (Manual) Eosinophils # (Manual) Basophils # (Manual) PT INR APTT ABG pH ABG pO2 ABG HCO3 ABG O2 Saturation ABG Base Excess ABG Hemoglobin Oxyhemoglobin Sodium Potassium Chloride Carbon Dioxide BUN Creatinine Glucose POC Glucose 124 H 142 H 117 H Lactic Acid Calcium Ionized Calcium Phosphorus Magnesium Total Bilirubin AST ALT Alkaline Phosphatase Ammonia Total Creatine Kinase CK-MB (CK-2) CK-MB (CK-2) Rel Index Total Protein Albumin Urine WBC (Auto) Vancomycin Trough Salicylates Acetaminophen Plasma/Serum Alcohol Crossmatch 02/22/20 02/22/20 02/23/20 12:20 17:55 12:46 WBC RBC Hgb Hct MCH RDW Plt Count Lymph % (Auto) Hitchcock % (Auto) Hitchcock # Baso # Seg Neutrophils % Seg Neuts % (Manual) Lymphocytes % (Manual) Monocytes % (Manual) Seg Neutrophils # Seg Neutrophils # Man Lymphocytes # (Manual) Monocytes # (Manual) Eosinophils # (Manual) Basophils # (Manual) PT INR APTT ABG pH ABG pO2 ABG HCO3 ABG O2 Saturation ABG Base Excess ABG Hemoglobin Oxyhemoglobin Sodium Potassium Chloride Carbon Dioxide BUN Creatinine Glucose POC Glucose 121 H 157 H 112 H Lactic Acid Calcium Ionized Calcium Phosphorus Magnesium Total Bilirubin AST ALT Alkaline Phosphatase Ammonia Total Creatine Kinase CK-MB (CK-2) CK-MB (CK-2) Rel Index Total Protein Albumin Urine WBC (Auto) Vancomycin Trough Salicylates Acetaminophen Plasma/Serum Alcohol Crossmatch 02/23/20 02/24/20 02/24/20 16:47 00:38 07:00 WBC RBC Hgb Hct MCH RDW Plt Count Lymph % (Auto) Hitchcock % (Auto) Hitchcock # Baso # Seg Neutrophils % Seg Neuts % (Manual) Lymphocytes % (Manual) Monocytes % (Manual) Seg Neutrophils # Seg Neutrophils # Man Lymphocytes # (Manual) Monocytes # (Manual) Eosinophils # (Manual) Basophils # (Manual) PT INR APTT ABG pH ABG pO2 ABG HCO3 ABG O2 Saturation ABG Base Excess ABG Hemoglobin Oxyhemoglobin Sodium Potassium Chloride Carbon Dioxide BUN Creatinine Glucose POC Glucose 142 H 138 H 118 H Lactic Acid Calcium Ionized Calcium Phosphorus Magnesium Total Bilirubin AST ALT Alkaline Phosphatase Ammonia Total Creatine Kinase CK-MB (CK-2) CK-MB (CK-2) Rel Index Total Protein Albumin Urine WBC (Auto) Vancomycin Trough Salicylates Acetaminophen Plasma/Serum Alcohol Crossmatch 02/24/20 02/24/20 02/25/20 11:41 18:33 18:24 WBC RBC Hgb Hct MCH RDW Plt Count Lymph % (Auto) Hitchcock % (Auto) Hitchcock # Baso # Seg Neutrophils % Seg Neuts % (Manual) Lymphocytes % (Manual) Monocytes % (Manual) Seg Neutrophils # Seg Neutrophils # Man Lymphocytes # (Manual) Monocytes # (Manual) Eosinophils # (Manual) Basophils # (Manual) PT INR APTT ABG pH ABG pO2 ABG HCO3 ABG O2 Saturation ABG Base Excess ABG Hemoglobin Oxyhemoglobin Sodium Potassium Chloride Carbon Dioxide BUN Creatinine Glucose POC Glucose 152 H 126 H 120 H Lactic Acid Calcium Ionized Calcium Phosphorus Magnesium Total Bilirubin AST ALT Alkaline Phosphatase Ammonia Total Creatine Kinase CK-MB (CK-2) CK-MB (CK-2) Rel Index Total Protein Albumin Urine WBC (Auto) Vancomycin Trough Salicylates Acetaminophen Plasma/Serum Alcohol Crossmatch 02/25/20 02/26/20 02/26/20 23:40 05:46 11:32 WBC RBC Hgb Hct MCH RDW Plt Count Lymph % (Auto) Hitchcock % (Auto) Hitchcock # Baso # Seg Neutrophils % Seg Neuts % (Manual) Lymphocytes % (Manual) Monocytes % (Manual) Seg Neutrophils # Seg Neutrophils # Man Lymphocytes # (Manual) Monocytes # (Manual) Eosinophils # (Manual) Basophils # (Manual) PT INR APTT ABG pH ABG pO2 ABG HCO3 ABG O2 Saturation ABG Base Excess ABG Hemoglobin Oxyhemoglobin Sodium Potassium Chloride Carbon Dioxide BUN Creatinine Glucose POC Glucose 114 H 113 H 106 H Lactic Acid Calcium Ionized Calcium Phosphorus Magnesium Total Bilirubin AST ALT Alkaline Phosphatase Ammonia Total Creatine Kinase CK-MB (CK-2) CK-MB (CK-2) Rel Index Total Protein Albumin Urine WBC (Auto) Vancomycin Trough Salicylates Acetaminophen Plasma/Serum Alcohol Crossmatch 02/26/20 02/27/20 02/27/20 16:14 11:53 17:54 WBC RBC Hgb Hct MCH RDW Plt Count Lymph % (Auto) Hitchcock % (Auto) Hitchcock # Baso # Seg Neutrophils % Seg Neuts % (Manual) Lymphocytes % (Manual) Monocytes % (Manual) Seg Neutrophils # Seg Neutrophils # Man Lymphocytes # (Manual) Monocytes # (Manual) Eosinophils # (Manual) Basophils # (Manual) PT INR APTT ABG pH ABG pO2 ABG HCO3 ABG O2 Saturation ABG Base Excess ABG Hemoglobin Oxyhemoglobin Sodium Potassium Chloride Carbon Dioxide BUN Creatinine Glucose POC Glucose 123 H 134 H 119 H Lactic Acid Calcium Ionized Calcium Phosphorus Magnesium Total Bilirubin AST ALT Alkaline Phosphatase Ammonia Total Creatine Kinase CK-MB (CK-2) CK-MB (CK-2) Rel Index Total Protein Albumin Urine WBC (Auto) Vancomycin Trough Salicylates Acetaminophen Plasma/Serum Alcohol Crossmatch 02/27/20 02/28/20 02/28/20 23:51 03:40 03:40 WBC RBC 3.58 L Hgb Hct MCH RDW Plt Count 575 H Lymph % (Auto) [place] % (Auto) 9.4 H [place] # 1.0 H Baso # Seg Neutrophils % Seg Neuts % (Manual) Lymphocytes % (Manual) Monocytes % (Manual) Seg Neutrophils # Seg Neutrophils # Man Lymphocytes # (Manual) Monocytes # (Manual) Eosinophils # (Manual) Basophils # (Manual) PT INR APTT ABG pH ABG pO2 ABG HCO3 ABG O2 Saturation ABG Base Excess ABG Hemoglobin Oxyhemoglobin Sodium Potassium Chloride Carbon Dioxide BUN 23 H Creatinine 0.5 L Glucose 114 H POC Glucose 138 H Lactic Acid Calcium Ionized Calcium Phosphorus Magnesium Total Bilirubin AST ALT Alkaline Phosphatase Ammonia Total Creatine Kinase CK-MB (CK-2) CK-MB (CK-2) Rel Index Total Protein Albumin Urine WBC (Auto) Vancomycin Trough Salicylates Acetaminophen Plasma/Serum Alcohol Crossmatch Allied health notes reviewed: RT
[2020-02-28] MEDS: HALOPERIDOL LACTATE 10 MG/5 ML ORAL LIQD FEEDTUBE PRN (13:25)
--- NOTE | 2020-02-28 14:46 | Progress Note ---
Assessment and Plan / Anoxic brain injury: suspected CT head: No acute abnormality. EEG ordered showed Generalized slowing. No seizures or epileptiform activity. -Patient now opening her eyes, can speak and able to follow minor command by nodding head /Acute Respiratory failure -s/p intubation, s/p trach and PEG on 12/12 with mechanical ventilation, now on T-piece - CTA was done and negative for PE, - Echo quality is poor, showed diastolic dysfunction - continue weaning as tolerated /Anemia, microcytic - Status post 3 units PRBC transfusion, H&H low stable /Acute metabolic encephalopathy/toxic encephalopathy due to the above - cont supportive care /Hyperammonemia - likely from liver disease related to EtOH abuse - Patient had elevated ammonia level and treated with lactulose /Metabolic Acidosis -Alcohol ketoacidosis vs hypoprofusion -Continue to monitor /ELevated LFTs, stable now - due to ischemic hepatitis. /Leucocytosis with sepsis - Source MRSA bacteremia and MSSA pneumonia. UA showed pyuria. RUQ US showed no ascites. - Repeat TTE negative for vegetation. Completed 7 days of Ceftriaxone on 11/29/2019. -Treated with Abx vancomycin 1 gm IV q 12 hour total 2 week till 12/30/2019 /MSSA pneumonia: Status post vancomycin till 12/30/2019 /ALcohol USe Disorder - given ongoing Alcohol use almost daily, s/p IV Thiamine - monitor /Severe hypokalemia -Repleted /Seizure disorder: treat with Keppra /H. Influenzae, tracheobronchitis, treated with abx /Moderate to severe fecal impaction - will add stool softner DNR CODE STATUS Disposition: prognosis guarded. Family okay for DNR, PT recommended subacute rehab, discharge pending on placement. negative for COVID 19 Brief History: 54-year-old female with a past medical history of Hypertension, Depression, Tobacco use Disorder, Alcohol use Disorder as confirmed by Daughter and pt's mother presents to the hospital status post cardiac arrest at home. EMS found [place]. They were unable to intubate patient with a ET tube because she was clenching down therefore Joe airway placed. Per the ED physician who evaluated pt, Patient presented with a pulse, intermittent respirations, and bagging support via Joe airway with O2 sat of 100%. Accu-Chek of 71 obtained by EMS. She was intubated in the ER and called for admission. Following admission patient was diagnosed with anoxic brain injury, sepsis with MRSA bacteremia and MSSA pneumonia, alcoholic liver disease. Family member initially wished for full code then changed to DNR, patient treated with IV antibiotics for sepsis, status post trach and PEG on 12/13/19. Weaned off from the vent and put on T- piece. Patient is uninsured, waiting for placement, guarded prognosis. Physical exam: General appearance: Present: other (elderly female, open eyes) - EENT Eyes: no scleral icterus, no conjunctival injection, pupil not reactive ENT: clear oral mucosa, dentition normal, no oropharyngeal erythema Ears: bilateral: normal - Neck Neck: trach on place - Respiratory Respiratory effort: other (on T-piece) Respiratory: bilateral: rales - Cardiovascular Rhythm: regular Heart Sounds: Present: S1 & S2. Absent: gallop, rub Extremities: pulses intact, No edema, normal color - Gastrointestinal General gastrointestinal: Present: soft, non-tender, non-distended, normal bowel sounds - Integumentary Integumentary: clear, warm, dry - Musculoskeletal Musculoskeletal: No joint swelling or tenderness - Neurologic Neurologic: other (2+ reflexes throughout). respond to commend and nods head. generalized weakness, verbal - Psychiatric Psychiatric: co-operative Subjective Date of service: 02/28/20 Principal diagnosis: Ac cardiopulmonary arrest; Ac hypoxemic resp failure; Acute encephalopathy Interval history: Patient seen and examined medical records reviewed Patient is alert and awake not in acute distress Tracheostomy on T-piece, Vital signs noted discharge pending on placement, remains on restraint Objective - Constitutional Vitals: Vital Signs - 12hr 02/28/20 02/28/20 02/28/20 04:30 05:00 07:55 Temperature 98.4 F Pulse Rate 105 H Respiratory 20 20 Rate Blood Pressure 110/75 O2 Sat by Pulse 97 Oximetry O2 Sat by Pulse 98 Oximetry [ Assessment] 02/28/20 02/28/20 08:12 12:27 Temperature 97.9 F 97.5 F L Pulse Rate 101 H 99 H Respiratory 18 18 Rate Blood Pressure 125/82 123/81 O2 Sat by Pulse 100 100 Oximetry O2 Sat by Pulse Oximetry [ Assessment] - Labs CBC & Chem 7: 02/28/20 03:40 02/28/20 03:40 Labs: Abnormal lab results 02/27/20 02/27/20 02/28/20 Range/Units 17:54 23:51 03:40 RBC 3.58 L (3.65-5.03) M/mm3 Plt Count 575 H (140-440) K/mm3 [place] % (Auto) 9.4 H (0.0-7.3) % [place] # 1.0 H (0.0-0.8) K/mm3 BUN (7-17) mg/dL Creatinine (0.7-1.2) mg/dL Glucose (65-100) mg/dL POC Glucose 119 H 138 H (70-105) 02/28/20 Range/Units 03:40 RBC (3.65-5.03) M/mm3 Plt Count (140-440) K/mm3 [place] % (Auto) (0.0-7.3) % [place] # (0.0-0.8) K/mm3 BUN 23 H (7-17) mg/dL Creatinine 0.5 L (0.7-1.2) mg/dL Glucose 114 H (65-100) mg/dL POC Glucose (70-105) HEART Score - HEART Score Troponin: Troponin T < 0.010 ng/mL (0.00-0.029) 11/22/19 23:27
[2020-02-28] MEDS: QUEtiapine 100 MG TAB FEEDTUBE SCH (22:45)
[2020-02-29] MEDS: LEVALBUTEROL 0.63 MG/3 ML NEBU IH SCH ×4 (03:32→21:36)
[2020-02-29] MEDS: ALPRAZolam 1 MG TAB PO PRN ×2 (06:30→23:55)
[2020-02-29] MEDS: ACETYLCYSTEINE 20% 200 MG/1 ML *FOR INHALATION USE INHALATION SCH ×2 (07:14→21:36)
[2020-02-29] MEDS: GLYCOPYRROLATE 1 MG TAB PO SCH ×3 (08:52→21:45)
[2020-02-29] MEDS: NICOTINE 21 MG/24 HR PATCH TD SCH (09:00)
[2020-02-29] MEDS: LANSOPRAZOLE 30 MG SOLUTAB FEEDTUBE SCH (09:02)
[2020-02-29] MEDS: SCOPOLAMINE TRANSDERMAL PATCH 72 HR TD SCH (09:02)
[2020-02-29] MEDS: DOCUSATE SODIUM 100 MG/10 ML ORAL LIQD FEEDTUBE SCH ×2 (09:02→21:44)
[2020-02-29] MEDS: MIRTAZAPINE 30 MG TAB PO SCH (09:03)
[2020-02-29] MEDS: SERTRALINE 50 MG TAB PO SCH (09:03)
[2020-02-29] MEDS: levETIRAcetam 500 MG/5 ML ORAL LIQD PO SCH ×2 (09:03→21:45)
[2020-02-29] MEDS: METOPROLOL TARTRATE 25 MG TAB PO SCH ×2 (09:04→21:44)
[2020-02-29] MEDS: hydrOXYzine PAMOATE 25 MG CAP PO SCH ×2 (09:07→21:45)
--- NOTE | 2020-02-29 14:25 | Progress Note ---
Assessment and Plan / Anoxic brain injury: suspected CT head: No acute abnormality. EEG ordered showed Generalized slowing. No seizures or epileptiform activity. -Patient now opening her eyes, can speak and able to follow minor command by nodding head /Acute Respiratory failure -s/p intubation, s/p trach and PEG on 12/12 with mechanical ventilation, now on T-piece - CTA was done and negative for PE, - Echo quality is poor, showed diastolic dysfunction - continue weaning as tolerated /Anemia, microcytic - Status post 3 units PRBC transfusion, H&H low stable /Acute metabolic encephalopathy/toxic encephalopathy due to the above - cont supportive care /Hyperammonemia - likely from liver disease related to EtOH abuse - Patient had elevated ammonia level and treated with lactulose /Metabolic Acidosis -Alcohol ketoacidosis vs hypoprofusion -Continue to monitor /ELevated LFTs, stable now - due to ischemic hepatitis. /Leucocytosis with sepsis - Source MRSA bacteremia and MSSA pneumonia. UA showed pyuria. RUQ US showed no ascites. - Repeat TTE negative for vegetation. Completed 7 days of Ceftriaxone on 11/29/2019. -Treated with Abx vancomycin 1 gm IV q 12 hour total 2 week till 12/30/2019 /MSSA pneumonia: Status post vancomycin till 12/30/2019 /ALcohol USe Disorder - given ongoing Alcohol use almost daily, s/p IV Thiamine - monitor /Severe hypokalemia -Repleted /Seizure disorder: treat with Keppra /H. Influenzae, tracheobronchitis, treated with abx /Moderate to severe fecal impaction - will add stool softner DNR CODE STATUS Disposition: prognosis guarded. Family okay for DNR, PT recommended subacute rehab, discharge pending on placement. negative for COVID 19 Brief History: 54-year-old female with a past medical history of Hypertension, Depression, Tobacco use Disorder, Alcohol use Disorder as confirmed by Daughter and pt's mother presents to the hospital status post cardiac arrest at home. EMS found pt [place]. They were unable to intubate patient with a ET tube because she was clenching down therefore Joe airway placed. Per the ED physician who evaluated pt, Patient presented with a pulse, intermittent respirations, and bagging support via Joe airway with O2 sat of 100%. Accu-Chek of 71 obtained by EMS. She was intubated in the ER and called for admission. Following admission patient was diagnosed with anoxic brain injury, sepsis with MRSA bacteremia and MSSA pneumonia, alcoholic liver disease. Family member initially wished for full code then changed to DNR, patient treated with IV antibiotics for sepsis, status post trach and PEG on 12/13/19. Weaned off from the vent and put on T- piece. Patient is uninsured, waiting for placement, guarded prognosis. Physical exam: General appearance: Present: other (elderly female, open eyes) - EENT Eyes: no scleral icterus, no conjunctival injection, pupil not reactive ENT: clear oral mucosa, dentition normal, no oropharyngeal erythema Ears: bilateral: normal - Neck Neck: trach on place - Respiratory Respiratory effort: other (on T-piece) Respiratory: bilateral: rales - Cardiovascular Rhythm: regular Heart Sounds: Present: S1 & S2. Absent: gallop, rub Extremities: pulses intact, No edema, normal color - Gastrointestinal General gastrointestinal: Present: soft, non-tender, non-distended, normal bowel sounds - Integumentary Integumentary: clear, warm, dry - Musculoskeletal Musculoskeletal: No joint swelling or tenderness - Neurologic Neurologic: other (2+ reflexes throughout). respond to commend and nods head. generalized weakness, verbal - Psychiatric Psychiatric: co-operative Subjective Date of service: 02/29/20 Principal diagnosis: Ac cardiopulmonary arrest; Ac hypoxemic resp failure; Acute encephalopathy Interval history: Patient seen and examined medical records reviewed Patient is alert and awake not in acute distress Tracheostomy on T-piece, Vital signs noted discharge pending on placement, remains on restraint Objective - Constitutional Vitals: Vital Signs - 12hr 02/29/20 02/29/20 02/29/20 04:00 04:21 07:14 Temperature 97.5 F L Pulse Rate 78 Pulse Rate [ 99 H Anterior Bilateral Throughout] Pulse Rate [ From Monitor] Respiratory 18 Rate Respiratory 20 Rate [Anterior Bilateral Throughout] Blood Pressure 106/72 O2 Sat by Pulse 95 Oximetry O2 Sat by Pulse Oximetry [ Assessment] 02/29/20 02/29/20 02/29/20 07:16 08:13 08:15 Temperature Pulse Rate 98 H Pulse Rate [ Anterior Bilateral Throughout] Pulse Rate [ 109 H From Monitor] Respiratory 20 Rate Respiratory Rate [Anterior Bilateral Throughout] Blood Pressure O2 Sat by Pulse 96 Oximetry O2 Sat by Pulse 96 Oximetry [ Assessment] 02/29/20 02/29/20 02/29/20 08:31 09:04 12:39 Temperature 99.3 F 97.9 F Pulse Rate 98 H 98 H 100 H Pulse Rate [ Anterior Bilateral Throughout] Pulse Rate [ From Monitor] Respiratory 18 18 Rate Respiratory Rate [Anterior Bilateral Throughout] Blood Pressure 124/80 124/80 120/84 O2 Sat by Pulse 100 100 Oximetry O2 Sat by Pulse Oximetry [ Assessment] - Labs CBC & Chem 7: 02/28/20 03:40 02/28/20 03:40 Labs: Abnormal lab results 02/28/20 02/28/20 02/29/20 Range/Units 12:37 18:38 05:50 POC Glucose 115 H 120 H 114 H (70-105) HEART Score - HEART Score Troponin: Troponin T < 0.010 ng/mL (0.00-0.029) 11/22/19 23:27
[2020-02-29] MEDS: QUEtiapine 100 MG TAB FEEDTUBE SCH (21:45)
[2020-03-01] MEDS: LEVALBUTEROL 0.63 MG/3 ML NEBU IH SCH ×5 (00:47→21:10)
[2020-03-01] MEDS: ACETYLCYSTEINE 20% 200 MG/1 ML *FOR INHALATION USE INHALATION SCH ×2 (08:04→21:10)
[2020-03-01] MEDS: GLYCOPYRROLATE 1 MG TAB PO SCH ×3 (08:57→22:39)
[2020-03-01] MEDS: DOCUSATE SODIUM 100 MG/10 ML ORAL LIQD FEEDTUBE SCH ×2 (09:01→22:39)
[2020-03-01] MEDS: ALPRAZolam 1 MG TAB PO PRN (09:01)
[2020-03-01] MEDS: levETIRAcetam 500 MG/5 ML ORAL LIQD PO SCH ×2 (09:01→22:39)
[2020-03-01] MEDS: SERTRALINE 50 MG TAB PO SCH (09:01)
[2020-03-01] MEDS: hydrOXYzine PAMOATE 25 MG CAP PO SCH ×2 (09:01→22:39)
[2020-03-01] MEDS: NICOTINE 21 MG/24 HR PATCH TD SCH (09:01)
[2020-03-01] MEDS: MIRTAZAPINE 30 MG TAB PO SCH (09:02)
[2020-03-01] MEDS: METOPROLOL TARTRATE 25 MG TAB PO SCH ×2 (09:02→22:39)
[2020-03-01] MEDS: LANSOPRAZOLE 30 MG SOLUTAB FEEDTUBE SCH (09:04)
--- NOTE | 2020-03-01 13:44 | Progress Note ---
Assessment and Plan / Anoxic brain injury: suspected CT head: No acute abnormality. EEG ordered showed Generalized slowing. No seizures or epileptiform activity. -Patient now opening her eyes, can speak and able to follow minor command by nodding head /Acute Respiratory failure -s/p intubation, s/p trach and PEG on 12/12 with mechanical ventilation, now on T-piece - CTA was done and negative for PE, - Echo quality is poor, showed diastolic dysfunction - continue weaning as tolerated /Anemia, microcytic - Status post 3 units PRBC transfusion, H&H low stable /Acute metabolic encephalopathy/toxic encephalopathy due to the above - cont supportive care /Hyperammonemia - likely from liver disease related to EtOH abuse - Patient had elevated ammonia level and treated with lactulose /Metabolic Acidosis -Alcohol ketoacidosis vs hypoprofusion -Continue to monitor /ELevated LFTs, stable now - due to ischemic hepatitis. /Leucocytosis with sepsis - Source MRSA bacteremia and MSSA pneumonia. UA showed pyuria. RUQ US showed no ascites. - Repeat TTE negative for vegetation. Completed 7 days of Ceftriaxone on 11/29/2019. -Treated with Abx vancomycin 1 gm IV q 12 hour total 2 week till 12/30/2019 /MSSA pneumonia: Status post vancomycin till 12/30/2019 /ALcohol USe Disorder - given ongoing Alcohol use almost daily, s/p IV Thiamine - monitor /Severe hypokalemia -Repleted /Seizure disorder: treat with Keppra /H. Influenzae, tracheobronchitis, treated with abx /Moderate to severe fecal impaction - will add stool softner DNR CODE STATUS Disposition: prognosis guarded. Family okay for DNR, PT recommended subacute rehab, discharge pending on placement. negative for COVID 19 Brief History: 54-year-old female with a past medical history of Hypertension, Depression, Tobacco use Disorder, Alcohol use Disorder as confirmed by Daughter and pt's mother presents to the hospital status post cardiac arrest at home. EMS found pt [place]. They were unable to intubate patient with a ET tube because she was clenching down therefore Joe airway placed. Per the ED physician who evaluated pt, Patient presented with a pulse, intermittent respirations, and bagging support via Joe airway with O2 sat of 100%. Accu-Chek of 71 obtained by EMS. She was intubated in the ER and called for admission. Following admission patient was diagnosed with anoxic brain injury, sepsis with MRSA bacteremia and MSSA pneumonia, alcoholic liver disease. Family member initially wished for full code then changed to DNR, patient treated with IV antibiotics for sepsis, status post trach and PEG on 12/13/19. Weaned off from the vent and put on T- piece. Patient is uninsured, waiting for placement, guarded prognosis. Physical exam: General appearance: Present: other (elderly female, open eyes) - EENT Eyes: no scleral icterus, no conjunctival injection, pupil not reactive ENT: clear oral mucosa, dentition normal, no oropharyngeal erythema Ears: bilateral: normal - Neck Neck: trach on place - Respiratory Respiratory effort: other (on T-piece) Respiratory: bilateral: rales - Cardiovascular Rhythm: regular Heart Sounds: Present: S1 & S2. Absent: gallop, rub Extremities: pulses intact, No edema, normal color - Gastrointestinal General gastrointestinal: Present: soft, non-tender, non-distended, normal bowel sounds - Integumentary Integumentary: clear, warm, dry - Musculoskeletal Musculoskeletal: No joint swelling or tenderness - Neurologic Neurologic: other (2+ reflexes throughout). respond to commend and nods head. generalized weakness, verbal - Psychiatric Psychiatric: co-operative Subjective Date of service: 03/01/20 Principal diagnosis: Ac cardiopulmonary arrest; Ac hypoxemic resp failure; Acute encephalopathy Interval history: Patient seen and examined medical records reviewed Patient is alert and awake not in acute distress Tracheostomy on T-piece, Vital signs noted discharge pending on placement, remains on restraint Objective - Constitutional Vitals: Vital Signs - 12hr 03/01/20 03/01/20 03/01/20 05:03 07:25 08:15 Temperature 98 F Pulse Rate 68 99 H Pulse Rate [ 112 H From Monitor] Respiratory 18 20 Rate Blood Pressure 110/68 [Left] O2 Sat by Pulse Oximetry 03/01/20 09:43 Temperature Pulse Rate Pulse Rate [ From Monitor] Respiratory Rate Blood Pressure [Left] O2 Sat by Pulse 97 Oximetry - Labs CBC & Chem 7: 02/28/20 03:40 02/28/20 03:40 Labs: Abnormal lab results 02/29/20 02/29/20 03/01/20 Range/Units 18:53 23:10 06:53 POC Glucose 112 H 147 H 131 H (70-105) HEART Score - HEART Score Troponin: Troponin T < 0.010 ng/mL (0.00-0.029) 11/22/19 23:27
[2020-03-01] MEDS: QUEtiapine 100 MG TAB FEEDTUBE SCH (22:40)
[2020-03-02] MEDS: LEVALBUTEROL 0.63 MG/3 ML NEBU IH SCH ×4 (01:29→22:02)
[2020-03-02] MEDS: ALPRAZolam 1 MG TAB PO PRN ×3 (03:25→20:27)
[2020-03-02] MEDS: ACETYLCYSTEINE 20% 200 MG/1 ML *FOR INHALATION USE INHALATION SCH ×2 (07:51→22:02)
[2020-03-02] MEDS: MIRTAZAPINE 30 MG TAB PO SCH (10:07)
[2020-03-02] MEDS: SERTRALINE 50 MG TAB PO SCH (10:07)
[2020-03-02] MEDS: GLYCOPYRROLATE 1 MG TAB PO SCH ×3 (10:07→20:26)
[2020-03-02] MEDS: NICOTINE 21 MG/24 HR PATCH TD SCH (10:07)
[2020-03-02] MEDS: hydrOXYzine PAMOATE 25 MG CAP PO SCH ×2 (10:07→22:23)
[2020-03-02] MEDS: levETIRAcetam 500 MG/5 ML ORAL LIQD PO SCH ×2 (10:10→22:20)
[2020-03-02] MEDS: METOPROLOL TARTRATE 25 MG TAB PO SCH ×2 (10:10→22:20)
[2020-03-02] MEDS: DOCUSATE SODIUM 100 MG/10 ML ORAL LIQD FEEDTUBE SCH ×2 (10:25→22:20)
[2020-03-02] MEDS: LANSOPRAZOLE 30 MG SOLUTAB FEEDTUBE SCH (10:26)
--- NOTE | 2020-03-02 13:26 | Progress Note ---
Assessment and Plan Acute cardiopulmonary arrest with ROSC Acute hypoxemic respiratory failure on MVS Acute metabolic-toxic encephalopathy Metabolic acidosis/alcoholic acidosis/Lactic acidosis Ischemic hepatitis Leucocytosis with lactic acidosis Tobacco use disorder ALcohol use Disorder Hypokalemia High grade fevers - continue scopolamine patch - continue mucomyst nebs - continue PMV trials as tolerated - advance diet per ROUSTAB[facility] HAND - no new issues; continue care as below otherwise - repeat CXR prn at this point - Continue to wean supplemental oxygen for target O2 sat's > 90% - continue bronchodilators with routine trach care and pulmonary hygiene per RT - Slow Seroquel taper - consider Provigil - s/p Antibiotics per ID recommendations - continue Reglan for G.I. motility - Continue VTE and Stress ulcer prophylaxis - Continue enteric nutritional support - Monitor glycemic control, with target blood glucose 140-180 mg/dL while critically ill (Avoid hypoglycemia) - ABG and CXR prn - Continue to avoid nephrotoxins, adjust all medications fro GFR and CrCL - Continue to avoid benzodiazepines , as much as possible, to reduce the possibility of delirium - Continue prn analgesia per CPOT score - Continue to maintain of sleep-wake cycle, avoid delirium - PT/OT/ROM exercises- awaiting PT/OT evaluation - Continue mobility protocol and skin assessment per protocol for pressure ulcer prevention - Continue to monitor for clinical seizures - Continue Nicotine withdrawal precautions, alcohol withdrawal precautions - continue other care per attending / other consultants - continue discharge planning ..... re-evaluate in am & prn CONDITION: STABLE PROGNOSIS: IMPROVED CODE STATUS: FULL CODE Subjective Date of service: 03/02/20 Principal diagnosis: Ac cardiopulmonary arrest; Ac hypoxemic resp failure; Acute encephalopathy Interval history: Patient is seen today for: Acute cardiopulmonary arrest with ROSC; Acute hypoxemic respiratory failure; Acute metabolic-toxic encephalopathy; Ischemic hepatitis; Leucocytosis with lactic acidosis; Tobacco use disorder; Alcohol use Disorder; Hypokalemia; High grade fevers Seen and examined at bedside; 24hour events reviewed; nursing and respiratory care staff consulted; no adverse overnight events reported to me; resting peacefully in bed; remains on [id number] oxygen; secretions moderate at times; No N/V/F/C Objective Vital Signs - 12hr 03/02/20 03/02/20 03/02/20 04:06 09:00 10:00 Temperature 98.0 F Pulse Rate 96 H 96 H Respiratory 20 Rate Blood Pressure 95/70 03/02/20 10:10 Temperature Pulse Rate 90 Respiratory Rate Blood Pressure Constitutional: no acute distress, other (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, with midline tracheostomy and with normal respiratory effort at rest) Eyes: non-icteric ENT: oropharynx moist, other (s/p trach) Neck: supple, no lymphadenopathy, no JVD Effort: normal Ascultation: Bilateral: diminished breath sounds, rhonchi Percussion: Bilateral: not dull Cardiovascular: regular rate and rhythm (tachycardia), other (S1,S2) Gastrointestinal: normoactive bowel sounds, soft, non-tender, non-distended Integumentary: normal Extremities: no cyanosis, no edema, pulses normal, no ischemia or petechiae Neurologic: normal mental status, non-focal exam, pupils equal and round Psychiatric: mood appropriate, affect normal CBC and BMP: 03/12/20 04:53 03/13/20 03:50 ABG, PT/INR, D-dimer: ABG ABG pH 7.429 pH Units (7.350-7.450) 01/09/20 08:51 ABG pCO2 39.1 mm Hg 01/09/20 08:51 ABG pO2 94.3 mm Hg (80.0-90.0) H 01/09/20 08:51 ABG O2 Saturation 97.4 % (95.0-99.0) 01/09/20 08:51 PT/INR, D-dimer PT 17.0 Sec. (12.2-14.9) H 11/23/19 03:47 INR 1.36 (0.87-1.13) H 11/23/19 03:47 Abnormal lab findings: Abnormal Labs 11/22/19 11/22/19 11/22/19 23:17 23:18 23:27 WBC 21.2 H RBC 3.59 L Hgb 9.8 L Hct MCH 27 L RDW 18.6 H Plt Count 454 H Lymph % (Auto) [facility] % (Auto) [facility] # Baso # Seg Neutrophils % Seg Neuts % (Manual) 86.0 H Lymphocytes % (Manual) 9.0 L Monocytes % (Manual) Seg Neutrophils # Seg Neutrophils # Man 18.2 H Lymphocytes # (Manual) Monocytes # (Manual) 1.1 H Eosinophils # (Manual) Basophils # (Manual) PT INR APTT ABG pH ABG pO2 ABG HCO3 ABG O2 Saturation ABG Base Excess ABG Hemoglobin Oxyhemoglobin Sodium Potassium Chloride Carbon Dioxide BUN Creatinine Glucose POC Glucose 53 L Lactic Acid Calcium Ionized Calcium Phosphorus Magnesium Total Bilirubin AST ALT Alkaline Phosphatase Ammonia Total Creatine Kinase CK-MB (CK-2) CK-MB (CK-2) Rel Index Total Protein Albumin Urine WBC (Auto) 40.0 H Vancomycin Trough Salicylates Acetaminophen Plasma/Serum Alcohol Crossmatch 11/22/19 11/22/19 11/22/19 23:27 23:27 23:27 WBC RBC Hgb Hct MCH RDW Plt Count Lymph % (Auto) [facility] % (Auto) [facility] # Baso # Seg Neutrophils % Seg Neuts % (Manual) Lymphocytes % (Manual) Monocytes % (Manual) Seg Neutrophils # Seg Neutrophils # Man Lymphocytes # (Manual) Monocytes # (Manual) Eosinophils # (Manual) Basophils # (Manual) PT INR APTT ABG pH ABG pO2 ABG HCO3 ABG O2 Saturation ABG Base Excess ABG Hemoglobin Oxyhemoglobin Sodium Potassium 2.4 L* Chloride 85.1 L Carbon Dioxide 19 L BUN Creatinine 0.5 L Glucose 261 H POC Glucose Lactic Acid Calcium Ionized Calcium Phosphorus Magnesium Total Bilirubin AST 609 H ALT 152 H Alkaline Phosphatase 160 H Ammonia 117.0 H Total Creatine Kinase 139 H CK-MB (CK-2) 8.3 H CK-MB (CK-2) Rel Index 5.9 H Total Protein Albumin 3.6 L Urine WBC (Auto) Vancomycin Trough Salicylates < 0.3 L Acetaminophen Plasma/Serum Alcohol Crossmatch 11/22/19 11/22/19 11/23/19 23:27 23:27 01:10 WBC RBC Hgb Hct MCH RDW Plt Count Lymph % (Auto) [facility] % (Auto) [facility] # Baso # Seg Neutrophils % Seg Neuts % (Manual) Lymphocytes % (Manual) Monocytes % (Manual) Seg Neutrophils # Seg Neutrophils # Man Lymphocytes # (Manual) Monocytes # (Manual) Eosinophils # (Manual) Basophils # (Manual) PT INR APTT ABG pH 7.273 L ABG pO2 209.7 H ABG HCO3 ABG O2 Saturation 99.2 H ABG Base Excess -3.9 L ABG Hemoglobin 10.6 L Oxyhemoglobin 93.9 L Sodium Potassium Chloride Carbon Dioxide BUN Creatinine Glucose POC Glucose Lactic Acid Calcium Ionized Calcium Phosphorus Magnesium Total Bilirubin AST ALT Alkaline Phosphatase Ammonia Total Creatine Kinase CK-MB (CK-2) CK-MB (CK-2) Rel Index Total Protein Albumin Urine WBC (Auto) Vancomycin Trough Salicylates Acetaminophen < 5.0 L Plasma/Serum Alcohol 0.08 H Crossmatch 11/23/19 11/23/19 11/23/19 01:19 01:19 03:47 WBC RBC Hgb Hct MCH RDW Plt Count Lymph % (Auto) [facility] % (Auto) [facility] # Baso # Seg Neutrophils % Seg Neuts % (Manual) Lymphocytes % (Manual) Monocytes % (Manual) Seg Neutrophils # Seg Neutrophils # Man Lymphocytes # (Manual) Monocytes # (Manual) Eosinophils # (Manual) Basophils # (Manual) PT 16.3 H INR 1.29 H APTT ABG pH ABG pO2 ABG HCO3 ABG O2 Saturation ABG Base Excess ABG Hemoglobin Oxyhemoglobin Sodium Potassium Chloride Carbon Dioxide BUN Creatinine Glucose POC Glucose Lactic Acid 2.10 H* 5.00 H* Calcium Ionized Calcium Phosphorus Magnesium Total Bilirubin AST ALT Alkaline Phosphatase Ammonia Total Creatine Kinase CK-MB (CK-2) CK-MB (CK-2) Rel Index Total Protein Albumin Urine WBC (Auto) Vancomycin Trough Salicylates Acetaminophen Plasma/Serum Alcohol Crossmatch 11/23/19 11/23/19 11/23/19 03:47 03:47 04:53 WBC RBC Hgb 9.4 L Hct MCH RDW Plt Count Lymph % (Auto) [facility] % (Auto) [facility] # Baso # Seg Neutrophils % Seg Neuts % (Manual) Lymphocytes % (Manual) Monocytes % (Manual) Seg Neutrophils # Seg Neutrophils # Man Lymphocytes # (Manual) Monocytes # (Manual) Eosinophils # (Manual) Basophils # (Manual) PT 17.0 H INR 1.36 H APTT 128.2 H* ABG pH ABG pO2 ABG HCO3 ABG O2 Saturation ABG Base Excess ABG Hemoglobin Oxyhemoglobin Sodium Potassium Chloride Carbon Dioxide 18 L BUN Creatinine 0.5 L Glucose 105 H POC Glucose Lactic Acid Calcium 8.3 L Ionized Calcium Phosphorus 2.40 L Magnesium Total Bilirubin 1.30 H AST 761 H ALT 158 H Alkaline Phosphatase 143 H Ammonia Total Creatine Kinase CK-MB (CK-2) CK-MB (CK-2) Rel Index Total Protein Albumin 2.8 L Urine WBC (Auto) Vancomycin Trough Salicylates Acetaminophen Plasma/Serum Alcohol Crossmatch 11/23/19 11/23/19 11/23/19 05:12 06:32 06:32 WBC 16.8 H RBC 3.31 L Hgb 8.9 L Hct 28.7 L MCH 27 L RDW 18.6 H Plt Count Lymph % (Auto) [facility] % (Auto) [facility] # Baso # Seg Neutrophils % Seg Neuts % (Manual) 94.0 H Lymphocytes % (Manual) 1.0 L Monocytes % (Manual) Seg Neutrophils # Seg Neutrophils # Man 15.8 H Lymphocytes # (Manual) 0.2 L Monocytes # (Manual) Eosinophils # (Manual) Basophils # (Manual) PT INR APTT ABG pH ABG pO2 ABG HCO3 ABG O2 Saturation ABG Base Excess -3.2 L ABG Hemoglobin 9.0 L Oxyhemoglobin 93.6 L Sodium Potassium Chloride Carbon Dioxide BUN Creatinine Glucose POC Glucose Lactic Acid Calcium Ionized Calcium 4.5 L Phosphorus Magnesium Total Bilirubin AST ALT Alkaline Phosphatase Ammonia Total Creatine Kinase CK-MB (CK-2) CK-MB (CK-2) Rel Index Total Protein Albumin Urine WBC (Auto) Vancomycin Trough Salicylates Acetaminophen Plasma/Serum Alcohol Crossmatch 11/23/19 11/24/19 11/24/19 06:32 04:35 04:35 WBC RBC Hgb Hct MCH RDW Plt Count Lymph % (Auto) [facility] % (Auto) [facility] # Baso # Seg Neutrophils % Seg Neuts % (Manual) Lymphocytes % (Manual) Monocytes % (Manual) Seg Neutrophils # Seg Neutrophils # Man Lymphocytes # (Manual) Monocytes # (Manual) Eosinophils # (Manual) Basophils # (Manual) PT INR APTT ABG pH ABG pO2 ABG HCO3 ABG O2 Saturation ABG Base Excess ABG Hemoglobin Oxyhemoglobin Sodium Potassium Chloride Carbon Dioxide BUN Creatinine Glucose POC Glucose Lactic Acid 3.30 H* Calcium Ionized Calcium Phosphorus Magnesium 1.40 L Total Bilirubin AST ALT Alkaline Phosphatase Ammonia 98.0 H Total Creatine Kinase CK-MB (CK-2) CK-MB (CK-2) Rel Index Total Protein Albumin Urine WBC (Auto) Vancomycin Trough Salicylates Acetaminophen Plasma/Serum Alcohol Crossmatch 11/24/19 11/25/19 11/25/19 05:22 04:34 05:05 WBC 17.3 H RBC 2.88 L Hgb 7.8 L Hct 24.6 L MCH 27 L RDW 18.5 H Plt Count Lymph % (Auto) 7.7 L [facility] % (Auto) 9.7 H [facility] # 1.7 H Baso # Seg Neutrophils % 82.2 H Seg Neuts % (Manual) Lymphocytes % (Manual) Monocytes % (Manual) Seg Neutrophils # 14.2 H Seg Neutrophils # Man Lymphocytes # (Manual) Monocytes # (Manual) Eosinophils # (Manual) Basophils # (Manual) PT INR APTT ABG pH 7.475 H ABG pO2 ABG HCO3 29.4 H 32.3 H ABG O2 Saturation ABG Base Excess 5.4 H 6.9 H ABG Hemoglobin 9.0 L 10.6 L Oxyhemoglobin 94.3 L Sodium Potassium Chloride Carbon Dioxide BUN Creatinine Glucose POC Glucose Lactic Acid Calcium Ionized Calcium Phosphorus Magnesium Total Bilirubin AST ALT Alkaline Phosphatase Ammonia Total Creatine Kinase CK-MB (CK-2) CK-MB (CK-2) Rel Index Total Protein Albumin Urine WBC (Auto) Vancomycin Trough Salicylates Acetaminophen Plasma/Serum Alcohol Crossmatch 11/25/19 11/25/19 11/26/19 05:05 22:46 03:31 WBC RBC Hgb Hct MCH RDW Plt Count Lymph % (Auto) [facility] % (Auto) [facility] # Baso # Seg Neutrophils % Seg Neuts % (Manual) Lymphocytes % (Manual) Monocytes % (Manual) Seg Neutrophils # Seg Neutrophils # Man Lymphocytes # (Manual) Monocytes # (Manual) Eosinophils # (Manual) Basophils # (Manual) PT INR APTT ABG pH 7.459 H ABG pO2 ABG HCO3 34.2 H ABG O2 Saturation ABG Base Excess 9.4 H ABG Hemoglobin 7.6 L Oxyhemoglobin 94.8 L Sodium 152 H D 147 H Potassium 2.3 L* D 2.8 L* D Chloride 107.8 H Carbon Dioxide 31 H D 33 H BUN Creatinine 0.6 L 0.6 L Glucose 148 H 177 H POC Glucose Lactic Acid Calcium Ionized Calcium Phosphorus Magnesium Total Bilirubin AST 105 H ALT 71 H Alkaline Phosphatase 155 H Ammonia Total Creatine Kinase CK-MB (CK-2) CK-MB (CK-2) Rel Index Total Protein 5.2 L D Albumin 2.9 L Urine WBC (Auto) Vancomycin Trough Salicylates Acetaminophen Plasma/Serum Alcohol Crossmatch 11/26/19 11/26/19 11/27/19 08:24 08:24 04:20 WBC 12.0 H RBC 3.00 L Hgb 8.0 L 9.3 L Hct 25.9 L 29.7 L MCH 27 L RDW 18.5 H Plt Count Lymph % (Auto) [facility] % (Auto) [facility] # Baso # Seg Neutrophils % Seg Neuts % (Manual) 89.0 H Lymphocytes % (Manual) 4.0 L Monocytes % (Manual) Seg Neutrophils # Seg Neutrophils # Man 10.7 H Lymphocytes # (Manual) 0.5 L Monocytes # (Manual) Eosinophils # (Manual) Basophils # (Manual) PT INR APTT ABG pH ABG pO2 ABG HCO3 ABG O2 Saturation ABG Base Excess ABG Hemoglobin Oxyhemoglobin Sodium 146 H Potassium 3.4 L D Chloride Carbon Dioxide BUN Creatinine 0.5 L Glucose 165 H POC Glucose Lactic Acid Calcium Ionized Calcium Phosphorus Magnesium Total Bilirubin AST 57 H ALT Alkaline Phosphatase 166 H Ammonia Total Creatine Kinase CK-MB (CK-2) CK-MB (CK-2) Rel Index Total Protein Albumin 2.9 L Urine WBC (Auto) Vancomycin Trough Salicylates Acetaminophen Plasma/Serum Alcohol Crossmatch 11/27/19 11/27/19 11/27/19 04:28 04:28 04:42 WBC RBC Hgb Hct MCH RDW Plt Count Lymph % (Auto) [facility] % (Auto) [facility] # Baso # Seg Neutrophils % Seg Neuts % (Manual) Lymphocytes % (Manual) Monocytes % (Manual) Seg Neutrophils # Seg Neutrophils # Man Lymphocytes # (Manual) Monocytes # (Manual) Eosinophils # (Manual) Basophils # (Manual) PT INR APTT ABG pH 7.470 H ABG pO2 74.0 L ABG HCO3 33.8 H ABG O2 Saturation ABG Base Excess 9.1 H ABG Hemoglobin 8.7 L Oxyhemoglobin 94.7 L Sodium 146 H Potassium 2.9 L* Chloride Carbon Dioxide BUN 25 H Creatinine Glucose 213 H POC Glucose Lactic Acid Calcium Ionized Calcium Phosphorus 1.00 L Magnesium Total Bilirubin AST ALT Alkaline Phosphatase Ammonia Total Creatine Kinase CK-MB (CK-2) CK-MB (CK-2) Rel Index Total Protein Albumin Urine WBC (Auto) Vancomycin Trough Salicylates Acetaminophen Plasma/Serum Alcohol Crossmatch 11/27/19 11/27/19 11/27/19 05:37 12:20 15:46 WBC RBC Hgb Hct MCH RDW Plt Count Lymph % (Auto) [facility] % (Auto) [facility] # Baso # Seg Neutrophils % Seg Neuts % (Manual) Lymphocytes % (Manual) Monocytes % (Manual) Seg Neutrophils # Seg Neutrophils # Man Lymphocytes # (Manual) Monocytes # (Manual) Eosinophils # (Manual) Basophils # (Manual) PT INR APTT ABG pH ABG pO2 ABG HCO3 ABG O2 Saturation ABG Base Excess ABG Hemoglobin Oxyhemoglobin Sodium 146 H Potassium 3.5 L D Chloride Carbon Dioxide BUN 24 H Creatinine 0.6 L Glucose 187 H POC Glucose 117 H 220 H Lactic Acid Calcium Ionized Calcium Phosphorus Magnesium Total Bilirubin AST ALT Alkaline Phosphatase Ammonia Total Creatine Kinase CK-MB (CK-2) CK-MB (CK-2) Rel Index Total Protein Albumin Urine WBC (Auto) Vancomycin Trough Salicylates Acetaminophen Plasma/Serum Alcohol Crossmatch 11/27/19 11/28/19 11/28/19 17:28 05:00 05:02 WBC RBC Hgb Hct MCH RDW Plt Count Lymph % (Auto) [facility] % (Auto) [facility] # Baso # Seg Neutrophils % Seg Neuts % (Manual) Lymphocytes % (Manual) Monocytes % (Manual) Seg Neutrophils # Seg Neutrophils # Man Lymphocytes # (Manual) Monocytes # (Manual) Eosinophils # (Manual) Basophils # (Manual) PT INR APTT ABG pH ABG pO2 72.4 L ABG HCO3 33.6 H ABG O2 Saturation 94.1 L ABG Base Excess 7.3 H ABG Hemoglobin Oxyhemoglobin 91.8 L Sodium 146 H Potassium 3.3 L Chloride Carbon Dioxide BUN 25 H Creatinine 0.6 L Glucose 176 H POC Glucose 198 H Lactic Acid Calcium Ionized Calcium Phosphorus Magnesium Total Bilirubin AST ALT Alkaline Phosphatase Ammonia Total Creatine Kinase CK-MB (CK-2) CK-MB (CK-2) Rel Index Total Protein Albumin Urine WBC (Auto) Vancomycin Trough Salicylates Acetaminophen Plasma/Serum Alcohol Crossmatch 11/28/19 11/28/19 11/29/19 05:02 18:55 10:43 WBC 15.2 H 19.0 H RBC 3.06 L 3.01 L Hgb 8.3 L 8.3 L Hct 27.0 L 26.4 L MCH 27 L RDW 19.0 H 19.7 H Plt Count 479 H 611 H Lymph % (Auto) [facility] % (Auto) [facility] # Baso # Seg Neutrophils % Seg Neuts % (Manual) 92.0 H Lymphocytes % (Manual) 2.0 L Monocytes % (Manual) Seg Neutrophils # Seg Neutrophils # Man 14.0 H Lymphocytes # (Manual) 0.3 L Monocytes # (Manual) Eosinophils # (Manual) Basophils # (Manual) PT INR APTT ABG pH ABG pO2 ABG HCO3 ABG O2 Saturation ABG Base Excess ABG Hemoglobin Oxyhemoglobin Sodium Potassium Chloride Carbon Dioxide BUN Creatinine Glucose POC Glucose 138 H Lactic Acid Calcium Ionized Calcium Phosphorus Magnesium Total Bilirubin AST ALT Alkaline Phosphatase Ammonia Total Creatine Kinase CK-MB (CK-2) CK-MB (CK-2) Rel Index Total Protein Albumin Urine WBC (Auto) Vancomycin Trough Salicylates Acetaminophen Plasma/Serum Alcohol Crossmatch 11/29/19 11/29/19 11/29/19 10:43 12:27 19:25 WBC RBC Hgb Hct MCH RDW Plt Count Lymph % (Auto) [facility] % (Auto) [facility] # Baso # Seg Neutrophils % Seg Neuts % (Manual) Lymphocytes % (Manual) Monocytes % (Manual) Seg Neutrophils # Seg Neutrophils # Man Lymphocytes # (Manual) Monocytes # (Manual) Eosinophils # (Manual) Basophils # (Manual) PT INR APTT ABG pH ABG pO2 ABG HCO3 ABG O2 Saturation ABG Base Excess ABG Hemoglobin Oxyhemoglobin Sodium Potassium 2.8 L* Chloride Carbon Dioxide BUN 20 H Creatinine 0.5 L Glucose 121 H POC Glucose 128 H 120 H Lactic Acid Calcium Ionized Calcium Phosphorus Magnesium Total Bilirubin AST ALT Alkaline Phosphatase Ammonia Total Creatine Kinase CK-MB (CK-2) CK-MB (CK-2) Rel Index Total Protein Albumin Urine WBC (Auto) Vancomycin Trough Salicylates Acetaminophen Plasma/Serum Alcohol Crossmatch 11/29/19 11/30/19 11/30/19 23:46 04:10 05:02 WBC RBC Hgb Hct MCH RDW Plt Count Lymph % (Auto) [facility] % (Auto) [facility] # Baso # Seg Neutrophils % Seg Neuts % (Manual) Lymphocytes % (Manual) Monocytes % (Manual) Seg Neutrophils # Seg Neutrophils # Man Lymphocytes # (Manual) Monocytes # (Manual) Eosinophils # (Manual) Basophils # (Manual) PT INR APTT ABG pH ABG pO2 76.3 L ABG HCO3 32.5 H ABG O2 Saturation ABG Base Excess 6.9 H ABG Hemoglobin 8.0 L Oxyhemoglobin 92.6 L Sodium Potassium Chloride Carbon Dioxide BUN Creatinine Glucose POC Glucose 116 H 128 H Lactic Acid Calcium Ionized Calcium Phosphorus Magnesium Total Bilirubin AST ALT Alkaline Phosphatase Ammonia Total Creatine Kinase CK-MB (CK-2) CK-MB (CK-2) Rel Index Total Protein Albumin Urine WBC (Auto) Vancomycin Trough Salicylates Acetaminophen Plasma/Serum Alcohol Crossmatch 11/30/19 11/30/19 11/30/19 05:25 05:25 12:59 WBC 18.4 H RBC 3.10 L Hgb 8.5 L Hct 27.5 L MCH 27 L RDW 20.9 H Plt Count 691 H Lymph % (Auto) 7.1 L [facility] % (Auto) 7.7 H [facility] # 1.4 H Baso # Seg Neutrophils % 83.4 H Seg Neuts % (Manual) Lymphocytes % (Manual) Monocytes % (Manual) Seg Neutrophils # 15.4 H Seg Neutrophils # Man Lymphocytes # (Manual) Monocytes # (Manual) Eosinophils # (Manual) Basophils # (Manual) PT INR APTT ABG pH ABG pO2 ABG HCO3 ABG O2 Saturation ABG Base Excess ABG Hemoglobin Oxyhemoglobin Sodium 146 H Potassium Chloride 107.2 H Carbon Dioxide BUN Creatinine 0.5 L Glucose 132 H POC Glucose 124 H Lactic Acid Calcium Ionized Calcium Phosphorus Magnesium Total Bilirubin AST 246 H ALT 274 H Alkaline Phosphatase 203 H Ammonia Total Creatine Kinase CK-MB (CK-2) CK-MB (CK-2) Rel Index Total Protein 5.4 L Albumin 2.9 L Urine WBC (Auto) Vancomycin Trough Salicylates Acetaminophen Plasma/Serum Alcohol Crossmatch 11/30/19 12/01/19 12/01/19 17:53 00:05 05:10 WBC RBC Hgb Hct MCH RDW Plt Count Lymph % (Auto) [facility] % (Auto) [facility] # Baso # Seg Neutrophils % Seg Neuts % (Manual) Lymphocytes % (Manual) Monocytes % (Manual) Seg Neutrophils # Seg Neutrophils # Man Lymphocytes # (Manual) Monocytes # (Manual) Eosinophils # (Manual) Basophils # (Manual) PT INR APTT ABG pH ABG pO2 ABG HCO3 ABG O2 Saturation ABG Base Excess ABG Hemoglobin Oxyhemoglobin Sodium Potassium Chloride Carbon Dioxide BUN Creatinine Glucose POC Glucose 113 H 143 H 145 H Lactic Acid Calcium Ionized Calcium Phosphorus Magnesium Total Bilirubin AST ALT Alkaline Phosphatase Ammonia Total Creatine Kinase CK-MB (CK-2) CK-MB (CK-2) Rel Index Total Protein Albumin Urine WBC (Auto) Vancomycin Trough Salicylates Acetaminophen Plasma/Serum Alcohol Crossmatch 12/01/19 12/01/19 12/01/19 05:33 08:23 08:23 WBC 22.7 H RBC 2.88 L Hgb 7.9 L Hct 25.2 L MCH 27 L RDW 21.0 H Plt Count 732 H Lymph % (Auto) [facility] % (Auto) [facility] # Baso # Seg Neutrophils % Seg Neuts % (Manual) 91.0 H Lymphocytes % (Manual) 3.0 L Monocytes % (Manual) Seg Neutrophils # Seg Neutrophils # Man 20.7 H Lymphocytes # (Manual) 0.7 L Monocytes # (Manual) 1.1 H Eosinophils # (Manual) Basophils # (Manual) PT INR APTT ABG pH ABG pO2 68.6 L ABG HCO3 34.1 H ABG O2 Saturation ABG Base Excess 9.0 H ABG Hemoglobin 6.5 L Oxyhemoglobin 94.7 L Sodium Potassium Chloride Carbon Dioxide BUN Creatinine 0.5 L Glucose 125 H POC Glucose Lactic Acid Calcium Ionized Calcium Phosphorus Magnesium Total Bilirubin AST ALT Alkaline Phosphatase Ammonia Total Creatine Kinase CK-MB (CK-2) CK-MB (CK-2) Rel Index Total Protein Albumin Urine WBC (Auto) Vancomycin Trough Salicylates Acetaminophen Plasma/Serum Alcohol Crossmatch 12/01/19 12/01/19 12/01/19 13:21 17:54 20:59 WBC RBC Hgb Hct MCH RDW Plt Count Lymph % (Auto) [facility] % (Auto) [facility] # Baso # Seg Neutrophils % Seg Neuts % (Manual) Lymphocytes % (Manual) Monocytes % (Manual) Seg Neutrophils # Seg Neutrophils # Man Lymphocytes # (Manual) Monocytes # (Manual) Eosinophils # (Manual) Basophils # (Manual) PT INR APTT ABG pH ABG pO2 78.3 L ABG HCO3 33.8 H ABG O2 Saturation 94.9 L ABG Base Excess 7.9 H ABG Hemoglobin 11.5 L Oxyhemoglobin 92.3 L Sodium Potassium Chloride Carbon Dioxide BUN Creatinine Glucose POC Glucose 111 H 115 H Lactic Acid Calcium Ionized Calcium Phosphorus Magnesium Total Bilirubin AST ALT Alkaline Phosphatase Ammonia Total Creatine Kinase CK-MB (CK-2) CK-MB (CK-2) Rel Index Total Protein Albumin Urine WBC (Auto) Vancomycin Trough Salicylates Acetaminophen Plasma/Serum Alcohol Crossmatch 03/12/03/19 12/04/19 12:55 20:00 04:26 WBC 15.2 H RBC 2.69 L Hgb 7.4 L Hct 23.6 L MCH 27 L RDW 19.9 H Plt Count 838 H Lymph % (Auto) [facility] % (Auto) [facility] # Baso # Seg Neutrophils % Seg Neuts % (Manual) Lymphocytes % (Manual) Monocytes % (Manual) Seg Neutrophils # Seg Neutrophils # Man Lymphocytes # (Manual) Monocytes # (Manual) Eosinophils # (Manual) Basophils # (Manual) PT INR APTT ABG pH ABG pO2 68.3 L ABG HCO3 33.5 H ABG O2 Saturation 93.5 L ABG Base Excess 8.4 H ABG Hemoglobin 7.3 L Oxyhemoglobin 90.9 L Sodium Potassium Chloride Carbon Dioxide BUN Creatinine Glucose POC Glucose 107 H Lactic Acid Calcium Ionized Calcium Phosphorus Magnesium Total Bilirubin AST ALT Alkaline Phosphatase Ammonia Total Creatine Kinase CK-MB (CK-2) CK-MB (CK-2) Rel Index Total Protein Albumin Urine WBC (Auto) Vancomycin Trough Salicylates Acetaminophen Plasma/Serum Alcohol Crossmatch 12/04/19 12/04/19 12/04/19 04:26 07:45 12:02 WBC 15.9 H RBC 2.88 L Hgb 7.9 L Hct 25.1 L MCH RDW 20.4 H Plt Count 839 H Lymph % (Auto) 11.3 L [facility] % (Auto) 15.2 H [facility] # 2.4 H Baso # Seg Neutrophils % 72.4 H Seg Neuts % (Manual) Lymphocytes % (Manual) Monocytes % (Manual) Seg Neutrophils # 11.5 H Seg Neutrophils # Man Lymphocytes # (Manual) Monocytes # (Manual) Eosinophils # (Manual) Basophils # (Manual) PT INR APTT ABG pH ABG pO2 ABG HCO3 ABG O2 Saturation ABG Base Excess ABG Hemoglobin Oxyhemoglobin Sodium Potassium Chloride 96.5 L Carbon Dioxide BUN 21 H Creatinine 0.6 L Glucose 107 H POC Glucose 138 H Lactic Acid Calcium Ionized Calcium Phosphorus Magnesium Total Bilirubin AST ALT Alkaline Phosphatase Ammonia Total Creatine Kinase CK-MB (CK-2) CK-MB (CK-2) Rel Index Total Protein Albumin Urine WBC (Auto) Vancomycin Trough Salicylates Acetaminophen Plasma/Serum Alcohol Crossmatch 12/04/19 12/05/19 12/05/19 18:16 11:55 18:36 WBC RBC Hgb Hct MCH RDW Plt Count Lymph % (Auto) [facility] % (Auto) [facility] # Baso # Seg Neutrophils % Seg Neuts % (Manual) Lymphocytes % (Manual) Monocytes % (Manual) Seg Neutrophils # Seg Neutrophils # Man Lymphocytes # (Manual) Monocytes # (Manual) Eosinophils # (Manual) Basophils # (Manual) PT INR APTT ABG pH ABG pO2 ABG HCO3 ABG O2 Saturation ABG Base Excess ABG Hemoglobin Oxyhemoglobin Sodium Potassium Chloride Carbon Dioxide BUN Creatinine Glucose POC Glucose 135 H 125 H 135 H Lactic Acid Calcium Ionized Calcium Phosphorus Magnesium Total Bilirubin AST ALT Alkaline Phosphatase Ammonia Total Creatine Kinase CK-MB (CK-2) CK-MB (CK-2) Rel Index Total Protein Albumin Urine WBC (Auto) Vancomycin Trough Salicylates Acetaminophen Plasma/Serum Alcohol Crossmatch 12/05/19 12/06/19 12/06/19 23:30 04:14 05:43 WBC RBC Hgb Hct MCH RDW Plt Count Lymph % (Auto) [facility] % (Auto) [facility] # Baso # Seg Neutrophils % Seg Neuts % (Manual) Lymphocytes % (Manual) Monocytes % (Manual) Seg Neutrophils # Seg Neutrophils # Man Lymphocytes # (Manual) Monocytes # (Manual) Eosinophils # (Manual) Basophils # (Manual) PT INR APTT ABG pH ABG pO2 ABG HCO3 ABG O2 Saturation ABG Base Excess ABG Hemoglobin Oxyhemoglobin Sodium Potassium 5.6 H Chloride 95.0 L Carbon Dioxide BUN 48 H Creatinine 1.3 H D Glucose POC Glucose 126 H 121 H Lactic Acid Calcium Ionized Calcium Phosphorus Magnesium Total Bilirubin AST 89 H ALT 98 H Alkaline Phosphatase 476 H Ammonia Total Creatine Kinase CK-MB (CK-2) CK-MB (CK-2) Rel Index Total Protein Albumin 2.8 L Urine WBC (Auto) Vancomycin Trough Salicylates Acetaminophen Plasma/Serum Alcohol Crossmatch 12/06/19 12/06/19 12/07/19 10:39 14:34 00:19 WBC 17.3 H RBC 2.60 L Hgb 7.1 L Hct 22.7 L MCH 27 L RDW 20.1 H Plt Count 832 H Lymph % (Auto) [facility] % (Auto) [facility] # Baso # Seg Neutrophils % Seg Neuts % (Manual) Lymphocytes % (Manual) Monocytes % (Manual) Seg Neutrophils # Seg Neutrophils # Man Lymphocytes # (Manual) Monocytes # (Manual) Eosinophils # (Manual) Basophils # (Manual) PT INR APTT ABG pH ABG pO2 ABG HCO3 ABG O2 Saturation ABG Base Excess ABG Hemoglobin Oxyhemoglobin Sodium Potassium Chloride Carbon Dioxide BUN Creatinine Glucose POC Glucose 128 H 136 H Lactic Acid Calcium Ionized Calcium Phosphorus Magnesium Total Bilirubin AST ALT Alkaline Phosphatase Ammonia Total Creatine Kinase CK-MB (CK-2) CK-MB (CK-2) Rel Index Total Protein Albumin Urine WBC (Auto) Vancomycin Trough Salicylates Acetaminophen Plasma/Serum Alcohol Crossmatch 12/07/19 12/07/19 12/07/19 03:44 03:44 05:53 WBC 16.2 H RBC 2.56 L Hgb 7.1 L Hct 22.3 L MCH RDW 19.4 H Plt Count 782 H Lymph % (Auto) [facility] % (Auto) [facility] # Baso # Seg Neutrophils % Seg Neuts % (Manual) Lymphocytes % (Manual) Monocytes % (Manual) Seg Neutrophils # Seg Neutrophils # Man Lymphocytes # (Manual) Monocytes # (Manual) Eosinophils # (Manual) Basophils # (Manual) PT INR APTT ABG pH ABG pO2 ABG HCO3 ABG O2 Saturation ABG Base Excess ABG Hemoglobin Oxyhemoglobin Sodium Potassium Chloride 95.6 L Carbon Dioxide BUN 56 H Creatinine 1.4 H Glucose 120 H POC Glucose 128 H Lactic Acid Calcium 10.3 H Ionized Calcium Phosphorus Magnesium Total Bilirubin AST ALT Alkaline Phosphatase Ammonia Total Creatine Kinase CK-MB (CK-2) CK-MB (CK-2) Rel Index Total Protein Albumin Urine WBC (Auto) Vancomycin Trough Salicylates Acetaminophen Plasma/Serum Alcohol Crossmatch 12/07/19 12/07/19 12/08/19 12:54 23:47 00:20 WBC RBC Hgb Hct MCH RDW Plt Count Lymph % (Auto) [facility] % (Auto) [facility] # Baso # Seg Neutrophils % Seg Neuts % (Manual) Lymphocytes % (Manual) Monocytes % (Manual) Seg Neutrophils # Seg Neutrophils # Man Lymphocytes # (Manual) Monocytes # (Manual) Eosinophils # (Manual) Basophils # (Manual) PT INR APTT ABG pH ABG pO2 ABG HCO3 ABG O2 Saturation ABG Base Excess ABG Hemoglobin Oxyhemoglobin Sodium Potassium Chloride Carbon Dioxide BUN Creatinine Glucose POC Glucose 128 H 130 H 124 H Lactic Acid Calcium Ionized Calcium Phosphorus Magnesium Total Bilirubin AST ALT Alkaline Phosphatase Ammonia Total Creatine Kinase CK-MB (CK-2) CK-MB (CK-2) Rel Index Total Protein Albumin Urine WBC (Auto) Vancomycin Trough Salicylates Acetaminophen Plasma/Serum Alcohol Crossmatch 12/08/19 12/08/19 12/08/19 06:38 12:04 18:26 WBC RBC Hgb Hct MCH RDW Plt Count Lymph % (Auto) [facility] % (Auto) [facility] # Baso # Seg Neutrophils % Seg Neuts % (Manual) Lymphocytes % (Manual) Monocytes % (Manual) Seg Neutrophils # Seg Neutrophils # Man Lymphocytes # (Manual) Monocytes # (Manual) Eosinophils # (Manual) Basophils # (Manual) PT INR APTT ABG pH ABG pO2 ABG HCO3 ABG O2 Saturation ABG Base Excess ABG Hemoglobin Oxyhemoglobin Sodium Potassium Chloride Carbon Dioxide BUN Creatinine Glucose POC Glucose 137 H 129 H 150 H Lactic Acid Calcium Ionized Calcium Phosphorus Magnesium Total Bilirubin AST ALT Alkaline Phosphatase Ammonia Total Creatine Kinase CK-MB (CK-2) CK-MB (CK-2) Rel Index Total Protein Albumin Urine WBC (Auto) Vancomycin Trough Salicylates Acetaminophen Plasma/Serum Alcohol Crossmatch 12/09/19 12/09/19 12/09/19 00:56 05:34 06:13 WBC RBC Hgb Hct MCH RDW Plt Count Lymph % (Auto) [facility] % (Auto) [facility] # Baso # Seg Neutrophils % Seg Neuts % (Manual) Lymphocytes % (Manual) Monocytes % (Manual) Seg Neutrophils # Seg Neutrophils # Man Lymphocytes # (Manual) Monocytes # (Manual) Eosinophils # (Manual) Basophils # (Manual) PT INR APTT ABG pH ABG pO2 ABG HCO3 ABG O2 Saturation ABG Base Excess ABG Hemoglobin Oxyhemoglobin Sodium 146 H Potassium Chloride Carbon Dioxide BUN 66 H Creatinine 1.9 H Glucose 116 H POC Glucose 130 H 130 H Lactic Acid Calcium Ionized Calcium Phosphorus Magnesium Total Bilirubin AST ALT Alkaline Phosphatase Ammonia Total Creatine Kinase CK-MB (CK-2) CK-MB (CK-2) Rel Index Total Protein Albumin Urine WBC (Auto) Vancomycin Trough Salicylates Acetaminophen Plasma/Serum Alcohol Crossmatch 12/09/19 12/09/19 12/10/19 11:52 17:50 00:14 WBC RBC Hgb Hct MCH RDW Plt Count Lymph % (Auto) [facility] % (Auto) [facility] # Baso # Seg Neutrophils % Seg Neuts % (Manual) Lymphocytes % (Manual) Monocytes % (Manual) Seg Neutrophils # Seg Neutrophils # Man Lymphocytes # (Manual) Monocytes # (Manual) Eosinophils # (Manual) Basophils # (Manual) PT INR APTT ABG pH ABG pO2 ABG HCO3 ABG O2 Saturation ABG Base Excess ABG Hemoglobin Oxyhemoglobin Sodium Potassium Chloride Carbon Dioxide BUN Creatinine Glucose POC Glucose 135 H 120 H 116 H Lactic Acid Calcium Ionized Calcium Phosphorus Magnesium Total Bilirubin AST ALT Alkaline Phosphatase Ammonia Total Creatine Kinase CK-MB (CK-2) CK-MB (CK-2) Rel Index Total Protein Albumin Urine WBC (Auto) Vancomycin Trough Salicylates Acetaminophen Plasma/Serum Alcohol Crossmatch 12/10/19 12/10/19 12/10/19 05:38 11:38 17:34 WBC RBC Hgb Hct MCH RDW Plt Count Lymph % (Auto) [facility] % (Auto) [facility] # Baso # Seg Neutrophils % Seg Neuts % (Manual) Lymphocytes % (Manual) Monocytes % (Manual) Seg Neutrophils # Seg Neutrophils # Man Lymphocytes # (Manual) Monocytes # (Manual) Eosinophils # (Manual) Basophils # (Manual) PT INR APTT ABG pH ABG pO2 ABG HCO3 ABG O2 Saturation ABG Base Excess ABG Hemoglobin Oxyhemoglobin Sodium Potassium Chloride Carbon Dioxide BUN Creatinine Glucose POC Glucose 115 H 112 H 130 H Lactic Acid Calcium Ionized Calcium Phosphorus Magnesium Total Bilirubin AST ALT Alkaline Phosphatase Ammonia Total Creatine Kinase CK-MB (CK-2) CK-MB (CK-2) Rel Index Total Protein Albumin Urine WBC (Auto) Vancomycin Trough Salicylates Acetaminophen Plasma/Serum Alcohol Crossmatch 12/11/19 12/11/19 12/11/19 00:20 05:31 12:22 WBC RBC Hgb Hct MCH RDW Plt Count Lymph % (Auto) [facility] % (Auto) [facility] # Baso # Seg Neutrophils % Seg Neuts % (Manual) Lymphocytes % (Manual) Monocytes % (Manual) Seg Neutrophils # Seg Neutrophils # Man Lymphocytes # (Manual) Monocytes # (Manual) Eosinophils # (Manual) Basophils # (Manual) PT INR APTT ABG pH ABG pO2 ABG HCO3 ABG O2 Saturation ABG Base Excess ABG Hemoglobin Oxyhemoglobin Sodium Potassium Chloride Carbon Dioxide BUN Creatinine Glucose POC Glucose 124 H 132 H 128 H Lactic Acid Calcium Ionized Calcium Phosphorus Magnesium Total Bilirubin AST ALT Alkaline Phosphatase Ammonia Total Creatine Kinase CK-MB (CK-2) CK-MB (CK-2) Rel Index Total Protein Albumin Urine WBC (Auto) Vancomycin Trough Salicylates Acetaminophen Plasma/Serum Alcohol Crossmatch 12/11/19 12/11/19 12/12/19 18:04 23:42 03:51 WBC RBC Hgb Hct MCH RDW Plt Count Lymph % (Auto) [facility] % (Auto) [facility] # Baso # Seg Neutrophils % Seg Neuts % (Manual) Lymphocytes % (Manual) Monocytes % (Manual) Seg Neutrophils # Seg Neutrophils # Man Lymphocytes # (Manual) Monocytes # (Manual) Eosinophils # (Manual) Basophils # (Manual) PT INR APTT ABG pH ABG pO2 ABG HCO3 ABG O2 Saturation ABG Base Excess ABG Hemoglobin Oxyhemoglobin Sodium 149 H Potassium Chloride Carbon Dioxide 20 L D BUN 77 H Creatinine 2.8 H Glucose POC Glucose 133 H 154 H Lactic Acid Calcium Ionized Calcium Phosphorus Magnesium Total Bilirubin AST ALT Alkaline Phosphatase Ammonia Total Creatine Kinase CK-MB (CK-2) CK-MB (CK-2) Rel Index Total Protein Albumin Urine WBC (Auto) Vancomycin Trough Salicylates Acetaminophen Plasma/Serum Alcohol Crossmatch 12/12/19 12/12/19 12/12/19 05:18 05:26 10:30 WBC 18.0 H RBC 2.51 L Hgb 6.8 L Hct 22.0 L MCH 27 L RDW 19.9 H Plt Count 582 H Lymph % (Auto) [facility] % (Auto) [facility] # Baso # Seg Neutrophils % Seg Neuts % (Manual) Lymphocytes % (Manual) Monocytes % (Manual) Seg Neutrophils # Seg Neutrophils # Man Lymphocytes # (Manual) Monocytes # (Manual) Eosinophils # (Manual) Basophils # (Manual) PT INR APTT ABG pH ABG pO2 ABG HCO3 ABG O2 Saturation ABG Base Excess ABG Hemoglobin Oxyhemoglobin Sodium Potassium Chloride Carbon Dioxide BUN Creatinine Glucose POC Glucose 135 H Lactic Acid Calcium Ionized Calcium Phosphorus Magnesium Total Bilirubin AST ALT Alkaline Phosphatase Ammonia Total Creatine Kinase CK-MB (CK-2) CK-MB (CK-2) Rel Index Total Protein Albumin Urine WBC (Auto) Vancomycin Trough Salicylates Acetaminophen Plasma/Serum Alcohol Crossmatch See Detail 12/12/19 12/12/19 12/12/19 11:44 18:10 23:21 WBC RBC Hgb Hct MCH RDW Plt Count Lymph % (Auto) [facility] % (Auto) [facility] # Baso # Seg Neutrophils % Seg Neuts % (Manual) Lymphocytes % (Manual) Monocytes % (Manual) Seg Neutrophils # Seg Neutrophils # Man Lymphocytes # (Manual) Monocytes # (Manual) Eosinophils # (Manual) Basophils # (Manual) PT INR APTT ABG pH ABG pO2 ABG HCO3 ABG O2 Saturation ABG Base Excess ABG Hemoglobin Oxyhemoglobin Sodium Potassium Chloride Carbon Dioxide BUN Creatinine Glucose POC Glucose 108 H 107 H 126 H Lactic Acid Calcium Ionized Calcium Phosphorus Magnesium Total Bilirubin AST ALT Alkaline Phosphatase Ammonia Total Creatine Kinase CK-MB (CK-2) CK-MB (CK-2) Rel Index Total Protein Albumin Urine WBC (Auto) Vancomycin Trough Salicylates Acetaminophen Plasma/Serum Alcohol Crossmatch 12/13/19 12/13/19 12/13/19 05:41 07:48 07:48 WBC 38.3 H RBC 2.37 L Hgb 6.3 L Hct 20.9 L MCH 27 L RDW 20.2 H Plt Count 546 H Lymph % (Auto) [facility] % (Auto) [facility] # Baso # Seg Neutrophils % Seg Neuts % (Manual) 93.0 H Lymphocytes % (Manual) 1.0 L Monocytes % (Manual) Seg Neutrophils # Seg Neutrophils # Man 35.6 H Lymphocytes # (Manual) 0.4 L Monocytes # (Manual) Eosinophils # (Manual) Basophils # (Manual) 0.4 H PT INR APTT ABG pH ABG pO2 ABG HCO3 ABG O2 Saturation ABG Base Excess ABG Hemoglobin Oxyhemoglobin Sodium 152 H Potassium 3.1 L D Chloride 111.9 H Carbon Dioxide 21 L BUN 53 H Creatinine 1.9 H Glucose 141 H POC Glucose 128 H Lactic Acid Calcium Ionized Calcium Phosphorus Magnesium Total Bilirubin AST ALT Alkaline Phosphatase 316 H Ammonia Total Creatine Kinase CK-MB (CK-2) CK-MB (CK-2) Rel Index Total Protein Albumin 2.4 L Urine WBC (Auto) Vancomycin Trough Salicylates Acetaminophen Plasma/Serum Alcohol Crossmatch 12/13/19 12/13/19 12/14/19 18:17 23:19 05:36 WBC RBC Hgb Hct MCH RDW Plt Count Lymph % (Auto) [facility] % (Auto) [facility] # Baso # Seg Neutrophils % Seg Neuts % (Manual) Lymphocytes % (Manual) Monocytes % (Manual) Seg Neutrophils # Seg Neutrophils # Man Lymphocytes # (Manual) Monocytes # (Manual) Eosinophils # (Manual) Basophils # (Manual) PT INR APTT ABG pH ABG pO2 ABG HCO3 ABG O2 Saturation ABG Base Excess ABG Hemoglobin Oxyhemoglobin Sodium Potassium Chloride Carbon Dioxide BUN Creatinine Glucose POC Glucose 141 H 158 H 182 H Lactic Acid Calcium Ionized Calcium Phosphorus Magnesium Total Bilirubin AST ALT Alkaline Phosphatase Ammonia Total Creatine Kinase CK-MB (CK-2) CK-MB (CK-2) Rel Index Total Protein Albumin Urine WBC (Auto) Vancomycin Trough Salicylates Acetaminophen Plasma/Serum Alcohol Crossmatch 12/14/19 12/14/19 12/14/19 08:48 08:48 10:31 WBC 33.3 H RBC 2.70 L Hgb 7.9 L 8.0 L Hct 25.3 L 24.0 L MCH RDW 19.2 H Plt Count 476 H Lymph % (Auto) [facility] % (Auto) [facility] # Baso # Seg Neutrophils % Seg Neuts % (Manual) Lymphocytes % (Manual) Monocytes % (Manual) Seg Neutrophils # Seg Neutrophils # Man Lymphocytes # (Manual) Monocytes # (Manual) Eosinophils # (Manual) Basophils # (Manual) PT INR APTT ABG pH ABG pO2 ABG HCO3 ABG O2 Saturation ABG Base Excess ABG Hemoglobin Oxyhemoglobin Sodium 153 H Potassium 2.5 L* Chloride 114.9 H Carbon Dioxide 20 L BUN 38 H Creatinine 1.4 H Glucose 177 H POC Glucose Lactic Acid Calcium Ionized Calcium Phosphorus Magnesium Total Bilirubin AST ALT Alkaline Phosphatase Ammonia Total Creatine Kinase CK-MB (CK-2) CK-MB (CK-2) Rel Index Total Protein Albumin Urine WBC (Auto) Vancomycin Trough Salicylates Acetaminophen Plasma/Serum Alcohol Crossmatch 12/14/19 12/14/19 12/14/19 12:57 16:15 17:50 WBC RBC Hgb Hct MCH RDW Plt Count Lymph % (Auto) [facility] % (Auto) [facility] # Baso # Seg Neutrophils % Seg Neuts % (Manual) Lymphocytes % (Manual) Monocytes % (Manual) Seg Neutrophils # Seg Neutrophils # Man Lymphocytes # (Manual) Monocytes # (Manual) Eosinophils # (Manual) Basophils # (Manual) PT INR APTT ABG pH ABG pO2 73.6 L ABG HCO3 ABG O2 Saturation ABG Base Excess ABG Hemoglobin 7.6 L Oxyhemoglobin 94.0 L Sodium Potassium Chloride Carbon Dioxide BUN Creatinine Glucose POC Glucose 174 H 150 H Lactic Acid Calcium Ionized Calcium Phosphorus Magnesium Total Bilirubin AST ALT Alkaline Phosphatase Ammonia Total Creatine Kinase CK-MB (CK-2) CK-MB (CK-2) Rel Index Total Protein Albumin Urine WBC (Auto) Vancomycin Trough Salicylates Acetaminophen Plasma/Serum Alcohol Crossmatch 12/15/19 12/15/19 12/15/19 00:28 05:27 07:23 WBC 30.0 H RBC 3.11 L Hgb 8.6 L Hct 27.7 L MCH RDW 20.0 H Plt Count 473 H Lymph % (Auto) [facility] % (Auto) [facility] # Baso # Seg Neutrophils % Seg Neuts % (Manual) Lymphocytes % (Manual) Monocytes % (Manual) Seg Neutrophils # Seg Neutrophils # Man Lymphocytes # (Manual) Monocytes # (Manual) Eosinophils # (Manual) Basophils # (Manual) PT INR APTT ABG pH ABG pO2 ABG HCO3 ABG O2 Saturation ABG Base Excess ABG Hemoglobin Oxyhemoglobin Sodium Potassium Chloride Carbon Dioxide BUN Creatinine Glucose POC Glucose 167 H 148 H Lactic Acid Calcium Ionized Calcium Phosphorus Magnesium Total Bilirubin AST ALT Alkaline Phosphatase Ammonia Total Creatine Kinase CK-MB (CK-2) CK-MB (CK-2) Rel Index Total Protein Albumin Urine WBC (Auto) Vancomycin Trough Salicylates Acetaminophen Plasma/Serum Alcohol Crossmatch 12/15/19 12/15/19 12/15/19 07:23 12:21 17:41 WBC RBC Hgb Hct MCH RDW Plt Count Lymph % (Auto) [facility] % (Auto) [facility] # Baso # Seg Neutrophils % Seg Neuts % (Manual) Lymphocytes % (Manual) Monocytes % (Manual) Seg Neutrophils # Seg Neutrophils # Man Lymphocytes # (Manual) Monocytes # (Manual) Eosinophils # (Manual) Basophils # (Manual) PT INR APTT ABG pH ABG pO2 ABG HCO3 ABG O2 Saturation ABG Base Excess ABG Hemoglobin Oxyhemoglobin Sodium 147 H Potassium 3.5 L D Chloride 111.2 H Carbon Dioxide 19 L BUN 29 H Creatinine Glucose 126 H POC Glucose 154 H 144 H Lactic Acid Calcium Ionized Calcium Phosphorus Magnesium Total Bilirubin AST ALT Alkaline Phosphatase Ammonia Total Creatine Kinase CK-MB (CK-2) CK-MB (CK-2) Rel Index Total Protein Albumin Urine WBC (Auto) Vancomycin Trough Salicylates Acetaminophen Plasma/Serum Alcohol Crossmatch 12/16/19 12/16/19 12/16/19 00:22 05:30 05:44 WBC 30.8 H RBC 2.58 L Hgb 7.1 L Hct 22.7 L MCH RDW 19.6 H Plt Count 451 H Lymph % (Auto) [facility] % (Auto) [facility] # Baso # Seg Neutrophils % Seg Neuts % (Manual) Lymphocytes % (Manual) Monocytes % (Manual) Seg Neutrophils # Seg Neutrophils # Man Lymphocytes # (Manual) Monocytes # (Manual) Eosinophils # (Manual) Basophils # (Manual) PT INR APTT ABG pH ABG pO2 ABG HCO3 ABG O2 Saturation ABG Base Excess ABG Hemoglobin Oxyhemoglobin Sodium Potassium Chloride Carbon Dioxide BUN Creatinine Glucose POC Glucose 139 H 126 H Lactic Acid Calcium Ionized Calcium Phosphorus Magnesium Total Bilirubin AST ALT Alkaline Phosphatase Ammonia Total Creatine Kinase CK-MB (CK-2) CK-MB (CK-2) Rel Index Total Protein Albumin Urine WBC (Auto) Vancomycin Trough Salicylates Acetaminophen Plasma/Serum Alcohol Crossmatch 12/16/19 12/16/19 12/16/19 05:44 11:48 17:37 WBC RBC Hgb Hct MCH RDW Plt Count Lymph % (Auto) [facility] % (Auto) [facility] # Baso # Seg Neutrophils % Seg Neuts % (Manual) Lymphocytes % (Manual) Monocytes % (Manual) Seg Neutrophils # Seg Neutrophils # Man Lymphocytes # (Manual) Monocytes # (Manual) Eosinophils # (Manual) Basophils # (Manual) PT INR APTT ABG pH ABG pO2 ABG HCO3 ABG O2 Saturation ABG Base Excess ABG Hemoglobin Oxyhemoglobin Sodium Potassium 3.4 L Chloride 109.2 H Carbon Dioxide 19 L BUN 27 H Creatinine Glucose 124 H POC Glucose 125 H 148 H Lactic Acid Calcium Ionized Calcium Phosphorus Magnesium Total Bilirubin AST ALT Alkaline Phosphatase Ammonia Total Creatine Kinase CK-MB (CK-2) CK-MB (CK-2) Rel Index Total Protein Albumin Urine WBC (Auto) Vancomycin Trough Salicylates Acetaminophen Plasma/Serum Alcohol Crossmatch 12/16/19 12/17/19 12/17/19 23:43 05:28 12:47 WBC RBC Hgb Hct MCH RDW Plt Count Lymph % (Auto) [facility] % (Auto) [facility] # Baso # Seg Neutrophils % Seg Neuts % (Manual) Lymphocytes % (Manual) Monocytes % (Manual) Seg Neutrophils # Seg Neutrophils # Man Lymphocytes # (Manual) Monocytes # (Manual) Eosinophils # (Manual) Basophils # (Manual) PT INR APTT ABG pH ABG pO2 ABG HCO3 ABG O2 Saturation ABG Base Excess ABG Hemoglobin Oxyhemoglobin Sodium Potassium Chloride Carbon Dioxide BUN Creatinine Glucose POC Glucose 142 H 140 H 125 H Lactic Acid Calcium Ionized Calcium Phosphorus Magnesium Total Bilirubin AST ALT Alkaline Phosphatase Ammonia Total Creatine Kinase CK-MB (CK-2) CK-MB (CK-2) Rel Index Total Protein Albumin Urine WBC (Auto) Vancomycin Trough Salicylates Acetaminophen Plasma/Serum Alcohol Crossmatch 12/17/19 12/17/19 12/17/19 17:05 18:00 Unknown WBC RBC Hgb Hct MCH RDW Plt Count Lymph % (Auto) [facility] % (Auto) [facility] # Baso # Seg Neutrophils % Seg Neuts % (Manual) Lymphocytes % (Manual) Monocytes % (Manual) Seg Neutrophils # Seg Neutrophils # Man Lymphocytes # (Manual) Monocytes # (Manual) Eosinophils # (Manual) Basophils # (Manual) PT INR APTT ABG pH ABG pO2 68.1 L ABG HCO3 ABG O2 Saturation 93.7 L ABG Base Excess ABG Hemoglobin 5.0 L Oxyhemoglobin 91.7 L Sodium Potassium Chloride Carbon Dioxide BUN Creatinine Glucose POC Glucose 140 H Lactic Acid Calcium Ionized Calcium Phosphorus Magnesium Total Bilirubin AST ALT Alkaline Phosphatase Ammonia Total Creatine Kinase CK-MB (CK-2) CK-MB (CK-2) Rel Index Total Protein Albumin Urine WBC (Auto) Vancomycin Trough Salicylates Acetaminophen Plasma/Serum Alcohol Crossmatch 12/18/19 12/18/19 12/18/19 00:16 04:53 04:53 WBC 28.6 H RBC 2.27 L Hgb 6.3 L Hct 19.5 L* MCH RDW 20.0 H Plt Count 497 H Lymph % (Auto) [facility] % (Auto) [facility] # Baso # Seg Neutrophils % Seg Neuts % (Manual) Lymphocytes % (Manual) Monocytes % (Manual) Seg Neutrophils # Seg Neutrophils # Man Lymphocytes # (Manual) Monocytes # (Manual) Eosinophils # (Manual) Basophils # (Manual) PT INR APTT ABG pH ABG pO2 ABG HCO3 ABG O2 Saturation ABG Base Excess ABG Hemoglobin Oxyhemoglobin Sodium Potassium Chloride 107.9 H Carbon Dioxide 20 L BUN 27 H Creatinine 0.6 L Glucose 116 H POC Glucose 123 H Lactic Acid Calcium Ionized Calcium Phosphorus Magnesium Total Bilirubin AST ALT Alkaline Phosphatase Ammonia Total Creatine Kinase CK-MB (CK-2) CK-MB (CK-2) Rel Index Total Protein Albumin Urine WBC (Auto) Vancomycin Trough Salicylates Acetaminophen Plasma/Serum Alcohol Crossmatch 12/18/19 12/18/19 12/18/19 06:38 11:22 12:08 WBC RBC Hgb Hct MCH RDW Plt Count Lymph % (Auto) [facility] % (Auto) [facility] # Baso # Seg Neutrophils % Seg Neuts % (Manual) Lymphocytes % (Manual) Monocytes % (Manual) Seg Neutrophils # Seg Neutrophils # Man Lymphocytes # (Manual) Monocytes # (Manual) Eosinophils # (Manual) Basophils # (Manual) PT INR APTT ABG pH ABG pO2 ABG HCO3 ABG O2 Saturation ABG Base Excess ABG Hemoglobin Oxyhemoglobin Sodium Potassium Chloride Carbon Dioxide BUN Creatinine Glucose POC Glucose 120 H 127 H Lactic Acid Calcium Ionized Calcium Phosphorus Magnesium Total Bilirubin AST ALT Alkaline Phosphatase Ammonia Total Creatine Kinase CK-MB (CK-2) CK-MB (CK-2) Rel Index Total Protein Albumin Urine WBC (Auto) Vancomycin Trough Salicylates Acetaminophen Plasma/Serum Alcohol Crossmatch See Detail 12/18/19 12/18/19 12/18/19 14:05 17:49 23:53 WBC RBC Hgb Hct MCH RDW Plt Count Lymph % (Auto) [facility] % (Auto) [facility] # Baso # Seg Neutrophils % Seg Neuts % (Manual) Lymphocytes % (Manual) Monocytes % (Manual) Seg Neutrophils # Seg Neutrophils # Man Lymphocytes # (Manual) Monocytes # (Manual) Eosinophils # (Manual) Basophils # (Manual) PT INR APTT ABG pH 7.267 L ABG pO2 69.8 L ABG HCO3 ABG O2 Saturation 88.4 L ABG Base Excess ABG Hemoglobin 7.1 L Oxyhemoglobin 86.4 L Sodium Potassium Chloride Carbon Dioxide BUN Creatinine Glucose POC Glucose 157 H 128 H Lactic Acid Calcium Ionized Calcium Phosphorus Magnesium Total Bilirubin AST ALT Alkaline Phosphatase Ammonia Total Creatine Kinase CK-MB (CK-2) CK-MB (CK-2) Rel Index Total Protein Albumin Urine WBC (Auto) Vancomycin Trough Salicylates Acetaminophen Plasma/Serum Alcohol Crossmatch 12/19/19 12/19/19 12/19/19 03:37 03:37 05:25 WBC 31.3 H RBC 2.60 L Hgb 7.6 L Hct 23.0 L MCH RDW 19.4 H Plt Count 530 H Lymph % (Auto) [facility] % (Auto) [facility] # Baso # Seg Neutrophils % Seg Neuts % (Manual) Lymphocytes % (Manual) Monocytes % (Manual) Seg Neutrophils # Seg Neutrophils # Man Lymphocytes # (Manual) Monocytes # (Manual) Eosinophils # (Manual) Basophils # (Manual) PT INR APTT ABG pH ABG pO2 ABG HCO3 ABG O2 Saturation ABG Base Excess ABG Hemoglobin Oxyhemoglobin Sodium Potassium Chloride Carbon Dioxide 18 L BUN 36 H Creatinine Glucose 111 H POC Glucose 123 H Lactic Acid Calcium Ionized Calcium Phosphorus Magnesium Total Bilirubin AST ALT Alkaline Phosphatase Ammonia Total Creatine Kinase CK-MB (CK-2) CK-MB (CK-2) Rel Index Total Protein Albumin Urine WBC (Auto) Vancomycin Trough Salicylates Acetaminophen Plasma/Serum Alcohol Crossmatch 12/19/19 12/19/19 12/20/19 12:59 18:33 00:00 WBC RBC Hgb Hct MCH RDW Plt Count Lymph % (Auto) [facility] % (Auto) [facility] # Baso # Seg Neutrophils % Seg Neuts % (Manual) Lymphocytes % (Manual) Monocytes % (Manual) Seg Neutrophils # Seg Neutrophils # Man Lymphocytes # (Manual) Monocytes # (Manual) Eosinophils # (Manual) Basophils # (Manual) PT INR APTT ABG pH ABG pO2 ABG HCO3 ABG O2 Saturation ABG Base Excess ABG Hemoglobin Oxyhemoglobin Sodium Potassium Chloride Carbon Dioxide BUN Creatinine Glucose POC Glucose 130 H 118 H 135 H Lactic Acid Calcium Ionized Calcium Phosphorus Magnesium Total Bilirubin AST ALT Alkaline Phosphatase Ammonia Total Creatine Kinase CK-MB (CK-2) CK-MB (CK-2) Rel Index Total Protein Albumin Urine WBC (Auto) Vancomycin Trough Salicylates Acetaminophen Plasma/Serum Alcohol Crossmatch 12/20/19 12/20/19 12/20/19 05:46 12:31 18:07 WBC RBC Hgb Hct MCH RDW Plt Count Lymph % (Auto) [facility] % (Auto) [facility] # Baso # Seg Neutrophils % Seg Neuts % (Manual) Lymphocytes % (Manual) Monocytes % (Manual) Seg Neutrophils # Seg Neutrophils # Man Lymphocytes # (Manual) Monocytes # (Manual) Eosinophils # (Manual) Basophils # (Manual) PT INR APTT ABG pH ABG pO2 ABG HCO3 ABG O2 Saturation ABG Base Excess ABG Hemoglobin Oxyhemoglobin Sodium Potassium Chloride Carbon Dioxide BUN Creatinine Glucose POC Glucose 131 H 128 H 134 H Lactic Acid Calcium Ionized Calcium Phosphorus Magnesium Total Bilirubin AST ALT Alkaline Phosphatase Ammonia Total Creatine Kinase CK-MB (CK-2) CK-MB (CK-2) Rel Index Total Protein Albumin Urine WBC (Auto) Vancomycin Trough Salicylates Acetaminophen Plasma/Serum Alcohol Crossmatch 12/21/19 12/21/19 12/21/19 03:28 03:28 07:21 WBC 29.4 H RBC 2.30 L Hgb 6.8 L Hct 20.2 L MCH RDW 20.2 H Plt Count 746 H Lymph % (Auto) [facility] % (Auto) [facility] # Baso # Seg Neutrophils % Seg Neuts % (Manual) 85.0 H Lymphocytes % (Manual) 8.0 L Monocytes % (Manual) Seg Neutrophils # Seg Neutrophils # Man 25.0 H Lymphocytes # (Manual) Monocytes # (Manual) 1.5 H Eosinophils # (Manual) 0.6 H Basophils # (Manual) PT INR APTT ABG pH ABG pO2 ABG HCO3 ABG O2 Saturation ABG Base Excess ABG Hemoglobin Oxyhemoglobin Sodium Potassium Chloride Carbon Dioxide 17 L BUN 57 H Creatinine 1.4 H D Glucose POC Glucose 124 H Lactic Acid Calcium Ionized Calcium Phosphorus Magnesium Total Bilirubin AST ALT Alkaline Phosphatase Ammonia Total Creatine Kinase CK-MB (CK-2) CK-MB (CK-2) Rel Index Total Protein Albumin Urine WBC (Auto) Vancomycin Trough Salicylates Acetaminophen Plasma/Serum Alcohol Crossmatch 12/21/19 12/21/19 12/21/19 08:56 12:06 14:53 WBC RBC Hgb 7.2 L Hct 22.9 L MCH RDW Plt Count Lymph % (Auto) [facility] % (Auto) [facility] # Baso # Seg Neutrophils % Seg Neuts % (Manual) Lymphocytes % (Manual) Monocytes % (Manual) Seg Neutrophils # Seg Neutrophils # Man Lymphocytes # (Manual) Monocytes # (Manual) Eosinophils # (Manual) Basophils # (Manual) PT INR APTT ABG pH ABG pO2 ABG HCO3 ABG O2 Saturation ABG Base Excess ABG Hemoglobin Oxyhemoglobin Sodium Potassium Chloride Carbon Dioxide BUN Creatinine Glucose POC Glucose 116 H Lactic Acid Calcium Ionized Calcium Phosphorus Magnesium Total Bilirubin AST ALT Alkaline Phosphatase Ammonia Total Creatine Kinase CK-MB (CK-2) CK-MB (CK-2) Rel Index Total Protein Albumin Urine WBC (Auto) Vancomycin Trough 33.8 H Salicylates Acetaminophen Plasma/Serum Alcohol Crossmatch 12/21/19 12/21/19 12/21/19 14:54 17:27 23:49 WBC RBC Hgb Hct MCH RDW Plt Count Lymph % (Auto) [facility] % (Auto) [facility] # Baso # Seg Neutrophils % Seg Neuts % (Manual) Lymphocytes % (Manual) Monocytes % (Manual) Seg Neutrophils # Seg Neutrophils # Man Lymphocytes # (Manual) Monocytes # (Manual) Eosinophils # (Manual) Basophils # (Manual) PT INR APTT ABG pH ABG pO2 ABG HCO3 ABG O2 Saturation ABG Base Excess ABG Hemoglobin Oxyhemoglobin Sodium Potassium Chloride Carbon Dioxide BUN Creatinine Glucose POC Glucose 145 H 127 H Lactic Acid Calcium Ionized Calcium Phosphorus Magnesium Total Bilirubin AST ALT Alkaline Phosphatase Ammonia Total Creatine Kinase CK-MB (CK-2) CK-MB (CK-2) Rel Index Total Protein Albumin Urine WBC (Auto) Vancomycin Trough Salicylates Acetaminophen Plasma/Serum Alcohol Crossmatch See Detail 12/22/19 12/22/19 12/22/19 04:43 05:56 08:40 WBC RBC Hgb Hct MCH RDW Plt Count Lymph % (Auto) [facility] % (Auto) [facility] # Baso # Seg Neutrophils % Seg Neuts % (Manual) Lymphocytes % (Manual) Monocytes % (Manual) Seg Neutrophils # Seg Neutrophils # Man Lymphocytes # (Manual) Monocytes # (Manual) Eosinophils # (Manual) Basophils # (Manual) PT INR APTT ABG pH ABG pO2 75.6 L ABG HCO3 ABG O2 Saturation ABG Base Excess -2.6 L ABG Hemoglobin 6.8 L Oxyhemoglobin 94.6 L Sodium Potassium Chloride Carbon Dioxide 17 L BUN 60 H Creatinine 1.4 H Glucose 126 H POC Glucose 153 H Lactic Acid Calcium Ionized Calcium Phosphorus Magnesium Total Bilirubin AST ALT Alkaline Phosphatase Ammonia Total Creatine Kinase CK-MB (CK-2) CK-MB (CK-2) Rel Index Total Protein Albumin Urine WBC (Auto) Vancomycin Trough Salicylates Acetaminophen Plasma/Serum Alcohol Crossmatch 12/22/19 12/22/19 12/23/19 12:07 17:49 04:30 WBC 22.4 H RBC 2.68 L Hgb 7.6 L Hct 22.9 L MCH RDW 19.9 H Plt Count 998 H Lymph % (Auto) [facility] % (Auto) [facility] # Baso # Seg Neutrophils % Seg Neuts % (Manual) 88.0 H Lymphocytes % (Manual) 2.0 L Monocytes % (Manual) 9.0 H Seg Neutrophils # Seg Neutrophils # Man 19.7 H Lymphocytes # (Manual) 0.4 L Monocytes # (Manual) 2.0 H Eosinophils # (Manual) Basophils # (Manual) PT INR APTT ABG pH ABG pO2 ABG HCO3 ABG O2 Saturation ABG Base Excess ABG Hemoglobin Oxyhemoglobin Sodium Potassium Chloride Carbon Dioxide BUN Creatinine Glucose POC Glucose 140 H 116 H Lactic Acid Calcium Ionized Calcium Phosphorus Magnesium Total Bilirubin AST ALT Alkaline Phosphatase Ammonia Total Creatine Kinase CK-MB (CK-2) CK-MB (CK-2) Rel Index Total Protein Albumin Urine WBC (Auto) Vancomycin Trough Salicylates Acetaminophen Plasma/Serum Alcohol Crossmatch 12/23/19 12/23/19 12/23/19 04:30 12:00 18:06 WBC RBC Hgb Hct MCH RDW Plt Count Lymph % (Auto) [facility] % (Auto) [facility] # Baso # Seg Neutrophils % Seg Neuts % (Manual) Lymphocytes % (Manual) Monocytes % (Manual) Seg Neutrophils # Seg Neutrophils # Man Lymphocytes # (Manual) Monocytes # (Manual) Eosinophils # (Manual) Basophils # (Manual) PT INR APTT ABG pH ABG pO2 ABG HCO3 ABG O2 Saturation ABG Base Excess ABG Hemoglobin Oxyhemoglobin Sodium Potassium 5.2 H Chloride Carbon Dioxide 21 L BUN 69 H Creatinine 1.5 H Glucose 117 H POC Glucose 128 H 138 H Lactic Acid Calcium Ionized Calcium Phosphorus Magnesium Total Bilirubin AST ALT Alkaline Phosphatase Ammonia Total Creatine Kinase CK-MB (CK-2) CK-MB (CK-2) Rel Index Total Protein Albumin Urine WBC (Auto) Vancomycin Trough Salicylates Acetaminophen Plasma/Serum Alcohol Crossmatch 12/23/19 12/24/19 12/24/19 23:46 04:31 05:08 WBC RBC Hgb Hct MCH RDW Plt Count Lymph % (Auto) [facility] % (Auto) [facility] # Baso # Seg Neutrophils % Seg Neuts % (Manual) Lymphocytes % (Manual) Monocytes % (Manual) Seg Neutrophils # Seg Neutrophils # Man Lymphocytes # (Manual) Monocytes # (Manual) Eosinophils # (Manual) Basophils # (Manual) PT INR APTT ABG pH ABG pO2 ABG HCO3 ABG O2 Saturation ABG Base Excess ABG Hemoglobin Oxyhemoglobin Sodium Potassium 5.3 H Chloride 107.6 H Carbon Dioxide 20 L BUN 72 H Creatinine 1.6 H Glucose 120 H POC Glucose 120 H 140 H Lactic Acid Calcium Ionized Calcium Phosphorus Magnesium Total Bilirubin AST ALT Alkaline Phosphatase Ammonia Total Creatine Kinase CK-MB (CK-2) CK-MB (CK-2) Rel Index Total Protein Albumin Urine WBC (Auto) Vancomycin Trough Salicylates Acetaminophen Plasma/Serum Alcohol Crossmatch 12/24/19 12/24/19 12/25/19 11:58 17:49 03:47 WBC 36.2 H RBC 2.92 L Hgb 8.4 L Hct 26.1 L MCH RDW 20.2 H Plt Count 942 H Lymph % (Auto) [facility] % (Auto) [facility] # Baso # Seg Neutrophils % Seg Neuts % (Manual) 97.5 H Lymphocytes % (Manual) 1.0 L Monocytes % (Manual) Seg Neutrophils # Seg Neutrophils # Man 35.3 H Lymphocytes # (Manual) 0.4 L Monocytes # (Manual) Eosinophils # (Manual) Basophils # (Manual) PT INR APTT ABG pH ABG pO2 ABG HCO3 ABG O2 Saturation ABG Base Excess ABG Hemoglobin Oxyhemoglobin Sodium Potassium Chloride Carbon Dioxide BUN Creatinine Glucose POC Glucose 146 H 131 H Lactic Acid Calcium Ionized Calcium Phosphorus Magnesium Total Bilirubin AST ALT Alkaline Phosphatase Ammonia Total Creatine Kinase CK-MB (CK-2) CK-MB (CK-2) Rel Index Total Protein Albumin Urine WBC (Auto) Vancomycin Trough Salicylates Acetaminophen Plasma/Serum Alcohol Crossmatch 12/25/19 12/25/19 12/25/19 03:47 05:30 12:23 WBC RBC Hgb Hct MCH RDW Plt Count Lymph % (Auto) [facility] % (Auto) [facility] # Baso # Seg Neutrophils % Seg Neuts % (Manual) Lymphocytes % (Manual) Monocytes % (Manual) Seg Neutrophils # Seg Neutrophils # Man Lymphocytes # (Manual) Monocytes # (Manual) Eosinophils # (Manual) Basophils # (Manual) PT INR APTT ABG pH ABG pO2 ABG HCO3 ABG O2 Saturation ABG Base Excess ABG Hemoglobin Oxyhemoglobin Sodium Potassium Chloride Carbon Dioxide 15 L BUN 70 H Creatinine 1.7 H Glucose 153 H POC Glucose 169 H 135 H Lactic Acid Calcium Ionized Calcium Phosphorus Magnesium Total Bilirubin AST ALT Alkaline Phosphatase Ammonia Total Creatine Kinase CK-MB (CK-2) CK-MB (CK-2) Rel Index Total Protein Albumin Urine WBC (Auto) Vancomycin Trough Salicylates Acetaminophen Plasma/Serum Alcohol Crossmatch 12/25/19 12/25/19 12/26/19 17:37 23:29 09:47 WBC 22.1 H RBC 2.83 L Hgb 7.9 L Hct 25.5 L MCH RDW 20.0 H Plt Count 894 H Lymph % (Auto) [facility] % (Auto) [facility] # Baso # Seg Neutrophils % Seg Neuts % (Manual) Lymphocytes % (Manual) Monocytes % (Manual) Seg Neutrophils # Seg Neutrophils # Man Lymphocytes # (Manual) Monocytes # (Manual) Eosinophils # (Manual) Basophils # (Manual) PT INR APTT ABG pH ABG pO2 ABG HCO3 ABG O2 Saturation ABG Base Excess ABG Hemoglobin Oxyhemoglobin Sodium Potassium Chloride Carbon Dioxide BUN Creatinine Glucose POC Glucose 120 H 140 H Lactic Acid Calcium Ionized Calcium Phosphorus Magnesium Total Bilirubin AST ALT Alkaline Phosphatase Ammonia Total Creatine Kinase CK-MB (CK-2) CK-MB (CK-2) Rel Index Total Protein Albumin Urine WBC (Auto) Vancomycin Trough Salicylates Acetaminophen Plasma/Serum Alcohol Crossmatch 12/26/19 12/26/19 12/26/19 09:47 11:46 17:52 WBC RBC Hgb Hct MCH RDW Plt Count Lymph % (Auto) [facility] % (Auto) [facility] # Baso # Seg Neutrophils % Seg Neuts % (Manual) Lymphocytes % (Manual) Monocytes % (Manual) Seg Neutrophils # Seg Neutrophils # Man Lymphocytes # (Manual) Monocytes # (Manual) Eosinophils # (Manual) Basophils # (Manual) PT INR APTT ABG pH ABG pO2 ABG HCO3 ABG O2 Saturation ABG Base Excess ABG Hemoglobin Oxyhemoglobin Sodium Potassium Chloride Carbon Dioxide 18 L BUN 65 H Creatinine 1.4 H Glucose 132 H POC Glucose 110 H 145 H Lactic Acid Calcium Ionized Calcium Phosphorus Magnesium Total Bilirubin AST ALT Alkaline Phosphatase Ammonia Total Creatine Kinase CK-MB (CK-2) CK-MB (CK-2) Rel Index Total Protein Albumin Urine WBC (Auto) Vancomycin Trough Salicylates Acetaminophen Plasma/Serum Alcohol Crossmatch 12/27/19 12/27/19 12/27/19 00:01 03:42 03:42 WBC 18.0 H RBC 2.86 L Hgb 8.0 L Hct 25.2 L MCH RDW 19.2 H Plt Count 873 H Lymph % (Auto) 8.4 L [facility] % (Auto) 7.5 H [facility] # 1.4 H Baso # 0.2 H Seg Neutrophils % 82.2 H Seg Neuts % (Manual) Lymphocytes % (Manual) Monocytes % (Manual) Seg Neutrophils # 14.8 H Seg Neutrophils # Man Lymphocytes # (Manual) Monocytes # (Manual) Eosinophils # (Manual) Basophils # (Manual) PT INR APTT ABG pH ABG pO2 ABG HCO3 ABG O2 Saturation ABG Base Excess ABG Hemoglobin Oxyhemoglobin Sodium Potassium Chloride Carbon Dioxide BUN 73 H Creatinine 1.4 H Glucose 119 H POC Glucose 124 H Lactic Acid Calcium Ionized Calcium Phosphorus Magnesium Total Bilirubin AST ALT Alkaline Phosphatase Ammonia Total Creatine Kinase CK-MB (CK-2) CK-MB (CK-2) Rel Index Total Protein Albumin Urine WBC (Auto) Vancomycin Trough Salicylates Acetaminophen Plasma/Serum Alcohol Crossmatch 12/27/19 12/27/19 12/27/19 05:45 11:45 17:29 WBC RBC Hgb Hct MCH RDW Plt Count Lymph % (Auto) [facility] % (Auto) [facility] # Baso # Seg Neutrophils % Seg Neuts % (Manual) Lymphocytes % (Manual) Monocytes % (Manual) Seg Neutrophils # Seg Neutrophils # Man Lymphocytes # (Manual) Monocytes # (Manual) Eosinophils # (Manual) Basophils # (Manual) PT INR APTT ABG pH ABG pO2 ABG HCO3 ABG O2 Saturation ABG Base Excess ABG Hemoglobin Oxyhemoglobin Sodium Potassium Chloride Carbon Dioxide BUN Creatinine Glucose POC Glucose 131 H 123 H 134 H Lactic Acid Calcium Ionized Calcium Phosphorus Magnesium Total Bilirubin AST ALT Alkaline Phosphatase Ammonia Total Creatine Kinase CK-MB (CK-2) CK-MB (CK-2) Rel Index Total Protein Albumin Urine WBC (Auto) Vancomycin Trough Salicylates Acetaminophen Plasma/Serum Alcohol Crossmatch 12/28/19 12/28/19 12/28/19 00:12 05:14 11:53 WBC RBC Hgb Hct MCH RDW Plt Count Lymph % (Auto) [facility] % (Auto) [facility] # Baso # Seg Neutrophils % Seg Neuts % (Manual) Lymphocytes % (Manual) Monocytes % (Manual) Seg Neutrophils # Seg Neutrophils # Man Lymphocytes # (Manual) Monocytes # (Manual) Eosinophils # (Manual) Basophils # (Manual) PT INR APTT ABG pH ABG pO2 ABG HCO3 ABG O2 Saturation ABG Base Excess ABG Hemoglobin Oxyhemoglobin Sodium Potassium Chloride Carbon Dioxide BUN Creatinine Glucose POC Glucose 138 H 130 H 146 H Lactic Acid Calcium Ionized Calcium Phosphorus Magnesium Total Bilirubin AST ALT Alkaline Phosphatase Ammonia Total Creatine Kinase CK-MB (CK-2) CK-MB (CK-2) Rel Index Total Protein Albumin Urine WBC (Auto) Vancomycin Trough Salicylates Acetaminophen Plasma/Serum Alcohol Crossmatch 12/28/19 12/29/19 12/29/19 17:39 00:01 18:11 WBC RBC Hgb Hct MCH RDW Plt Count Lymph % (Auto) [facility] % (Auto) [facility] # Baso # Seg Neutrophils % Seg Neuts % (Manual) Lymphocytes % (Manual) Monocytes % (Manual) Seg Neutrophils # Seg Neutrophils # Man Lymphocytes # (Manual) Monocytes # (Manual) Eosinophils # (Manual) Basophils # (Manual) PT INR APTT ABG pH ABG pO2 ABG HCO3 ABG O2 Saturation ABG Base Excess ABG Hemoglobin Oxyhemoglobin Sodium Potassium Chloride Carbon Dioxide BUN Creatinine Glucose POC Glucose 117 H 139 H 130 H Lactic Acid Calcium Ionized Calcium Phosphorus Magnesium Total Bilirubin AST ALT Alkaline Phosphatase Ammonia Total Creatine Kinase CK-MB (CK-2) CK-MB (CK-2) Rel Index Total Protein Albumin Urine WBC (Auto) Vancomycin Trough Salicylates Acetaminophen Plasma/Serum Alcohol Crossmatch 12/29/19 12/30/19 12/30/19 23:09 00:02 01:06 WBC 16.7 H RBC 2.91 L Hgb 8.2 L Hct 25.4 L MCH RDW 18.7 H Plt Count 708 H Lymph % (Auto) 9.4 L [facility] % (Auto) [facility] # 0.9 H Baso # Seg Neutrophils % 83.5 H Seg Neuts % (Manual) Lymphocytes % (Manual) Monocytes % (Manual) Seg Neutrophils # 14.0 H Seg Neutrophils # Man Lymphocytes # (Manual) Monocytes # (Manual) Eosinophils # (Manual) Basophils # (Manual) PT INR APTT ABG pH ABG pO2 ABG HCO3 ABG O2 Saturation ABG Base Excess ABG Hemoglobin Oxyhemoglobin Sodium Potassium Chloride Carbon Dioxide BUN Creatinine Glucose POC Glucose 120 H 114 H Lactic Acid Calcium Ionized Calcium Phosphorus Magnesium Total Bilirubin AST ALT Alkaline Phosphatase Ammonia Total Creatine Kinase CK-MB (CK-2) CK-MB (CK-2) Rel Index Total Protein Albumin Urine WBC (Auto) Vancomycin Trough Salicylates Acetaminophen Plasma/Serum Alcohol Crossmatch 12/30/19 12/30/19 12/30/19 01:06 04:23 05:18 WBC RBC Hgb Hct MCH RDW Plt Count Lymph % (Auto) [facility] % (Auto) [facility] # Baso # Seg Neutrophils % Seg Neuts % (Manual) Lymphocytes % (Manual) Monocytes % (Manual) Seg Neutrophils # Seg Neutrophils # Man Lymphocytes # (Manual) Monocytes # (Manual) Eosinophils # (Manual) Basophils # (Manual) PT INR APTT ABG pH ABG pO2 ABG HCO3 ABG O2 Saturation ABG Base Excess ABG Hemoglobin 8.3 L Oxyhemoglobin Sodium Potassium Chloride Carbon Dioxide BUN 70 H Creatinine Glucose 122 H POC Glucose 130 H Lactic Acid Calcium Ionized Calcium Phosphorus Magnesium Total Bilirubin AST ALT Alkaline Phosphatase Ammonia Total Creatine Kinase CK-MB (CK-2) CK-MB (CK-2) Rel Index Total Protein Albumin Urine WBC (Auto) Vancomycin Trough Salicylates Acetaminophen Plasma/Serum Alcohol Crossmatch 12/30/19 12/30/19 12/30/19 05:40 12:17 17:43 WBC RBC Hgb Hct MCH RDW Plt Count Lymph % (Auto) [facility] % (Auto) [facility] # Baso # Seg Neutrophils % Seg Neuts % (Manual) Lymphocytes % (Manual) Monocytes % (Manual) Seg Neutrophils # Seg Neutrophils # Man Lymphocytes # (Manual) Monocytes # (Manual) Eosinophils # (Manual) Basophils # (Manual) PT INR APTT ABG pH ABG pO2 ABG HCO3 ABG O2 Saturation ABG Base Excess ABG Hemoglobin Oxyhemoglobin Sodium Potassium Chloride Carbon Dioxide BUN Creatinine Glucose POC Glucose 135 H 132 H 118 H Lactic Acid Calcium Ionized Calcium Phosphorus Magnesium Total Bilirubin AST ALT Alkaline Phosphatase Ammonia Total Creatine Kinase CK-MB (CK-2) CK-MB (CK-2) Rel Index Total Protein Albumin Urine WBC (Auto) Vancomycin Trough Salicylates Acetaminophen Plasma/Serum Alcohol Crossmatch 12/30/19 12/31/19 12/31/19 23:29 05:19 17:50 WBC RBC Hgb Hct MCH RDW Plt Count Lymph % (Auto) [facility] % (Auto) [facility] # Baso # Seg Neutrophils % Seg Neuts % (Manual) Lymphocytes % (Manual) Monocytes % (Manual) Seg Neutrophils # Seg Neutrophils # Man Lymphocytes # (Manual) Monocytes # (Manual) Eosinophils # (Manual) Basophils # (Manual) PT INR APTT ABG pH ABG pO2 ABG HCO3 ABG O2 Saturation ABG Base Excess ABG Hemoglobin Oxyhemoglobin Sodium Potassium Chloride Carbon Dioxide BUN Creatinine Glucose POC Glucose 114 H 109 H 116 H Lactic Acid Calcium Ionized Calcium Phosphorus Magnesium Total Bilirubin AST ALT Alkaline Phosphatase Ammonia Total Creatine Kinase CK-MB (CK-2) CK-MB (CK-2) Rel Index Total Protein Albumin Urine WBC (Auto) Vancomycin Trough Salicylates Acetaminophen Plasma/Serum Alcohol Crossmatch 01/01/20 01/01/20 01/01/20 00:10 05:19 12:02 WBC RBC Hgb Hct MCH RDW Plt Count Lymph % (Auto) [facility] % (Auto) [facility] # Baso # Seg Neutrophils % Seg Neuts % (Manual) Lymphocytes % (Manual) Monocytes % (Manual) Seg Neutrophils # Seg Neutrophils # Man Lymphocytes # (Manual) Monocytes # (Manual) Eosinophils # (Manual) Basophils # (Manual) PT INR APTT ABG pH ABG pO2 ABG HCO3 ABG O2 Saturation ABG Base Excess ABG Hemoglobin Oxyhemoglobin Sodium Potassium Chloride Carbon Dioxide BUN Creatinine Glucose POC Glucose 131 H 122 H 136 H Lactic Acid Calcium Ionized Calcium Phosphorus Magnesium Total Bilirubin AST ALT Alkaline Phosphatase Ammonia Total Creatine Kinase CK-MB (CK-2) CK-MB (CK-2) Rel Index Total Protein Albumin Urine WBC (Auto) Vancomycin Trough Salicylates Acetaminophen Plasma/Serum Alcohol Crossmatch 01/02/20 01/02/20 01/02/20 00:24 05:36 11:41 WBC RBC Hgb Hct MCH RDW Plt Count Lymph % (Auto) [facility] % (Auto) [facility] # Baso # Seg Neutrophils % Seg Neuts % (Manual) Lymphocytes % (Manual) Monocytes % (Manual) Seg Neutrophils # Seg Neutrophils # Man Lymphocytes # (Manual) Monocytes # (Manual) Eosinophils # (Manual) Basophils # (Manual) PT INR APTT ABG pH ABG pO2 ABG HCO3 ABG O2 Saturation ABG Base Excess ABG Hemoglobin Oxyhemoglobin Sodium Potassium Chloride Carbon Dioxide BUN Creatinine Glucose POC Glucose 119 H 109 H 125 H Lactic Acid Calcium Ionized Calcium Phosphorus Magnesium Total Bilirubin AST ALT Alkaline Phosphatase Ammonia Total Creatine Kinase CK-MB (CK-2) CK-MB (CK-2) Rel Index Total Protein Albumin Urine WBC (Auto) Vancomycin Trough Salicylates Acetaminophen Plasma/Serum Alcohol Crossmatch 01/02/20 01/03/20 01/03/20 17:49 05:29 12:13 WBC RBC Hgb Hct MCH RDW Plt Count Lymph % (Auto) [facility] % (Auto) [facility] # Baso # Seg Neutrophils % Seg Neuts % (Manual) Lymphocytes % (Manual) Monocytes % (Manual) Seg Neutrophils # Seg Neutrophils # Man Lymphocytes # (Manual) Monocytes # (Manual) Eosinophils # (Manual) Basophils # (Manual) PT INR APTT ABG pH ABG pO2 ABG HCO3 ABG O2 Saturation ABG Base Excess ABG Hemoglobin Oxyhemoglobin Sodium Potassium Chloride Carbon Dioxide BUN Creatinine Glucose POC Glucose 130 H 132 H 113 H Lactic Acid Calcium Ionized Calcium Phosphorus Magnesium Total Bilirubin AST ALT Alkaline Phosphatase Ammonia Total Creatine Kinase CK-MB (CK-2) CK-MB (CK-2) Rel Index Total Protein Albumin Urine WBC (Auto) Vancomycin Trough Salicylates Acetaminophen Plasma/Serum Alcohol Crossmatch 01/03/20 01/04/20 01/04/20 17:32 00:19 05:26 WBC RBC Hgb Hct MCH RDW Plt Count Lymph % (Auto) [facility] % (Auto) [facility] # Baso # Seg Neutrophils % Seg Neuts % (Manual) Lymphocytes % (Manual) Monocytes % (Manual) Seg Neutrophils # Seg Neutrophils # Man Lymphocytes # (Manual) Monocytes # (Manual) Eosinophils # (Manual) Basophils # (Manual) PT INR APTT ABG pH ABG pO2 ABG HCO3 ABG O2 Saturation ABG Base Excess ABG Hemoglobin Oxyhemoglobin Sodium Potassium Chloride Carbon Dioxide BUN Creatinine Glucose POC Glucose 127 H 141 H 129 H Lactic Acid Calcium Ionized Calcium Phosphorus Magnesium Total Bilirubin AST ALT Alkaline Phosphatase Ammonia Total Creatine Kinase CK-MB (CK-2) CK-MB (CK-2) Rel Index Total Protein Albumin Urine WBC (Auto) Vancomycin Trough Salicylates Acetaminophen Plasma/Serum Alcohol Crossmatch 01/04/20 01/04/20 01/05/20 11:39 17:29 05:22 WBC RBC Hgb Hct MCH RDW Plt Count Lymph % (Auto) [facility] % (Auto) [facility] # Baso # Seg Neutrophils % Seg Neuts % (Manual) Lymphocytes % (Manual) Monocytes % (Manual) Seg Neutrophils # Seg Neutrophils # Man Lymphocytes # (Manual) Monocytes # (Manual) Eosinophils # (Manual) Basophils # (Manual) PT INR APTT ABG pH ABG pO2 ABG HCO3 ABG O2 Saturation ABG Base Excess ABG Hemoglobin Oxyhemoglobin Sodium Potassium Chloride Carbon Dioxide BUN Creatinine Glucose POC Glucose 167 H 132 H 121 H Lactic Acid Calcium Ionized Calcium Phosphorus Magnesium Total Bilirubin AST ALT Alkaline Phosphatase Ammonia Total Creatine Kinase CK-MB (CK-2) CK-MB (CK-2) Rel Index Total Protein Albumin Urine WBC (Auto) Vancomycin Trough Salicylates Acetaminophen Plasma/Serum Alcohol Crossmatch 01/05/20 01/05/20 01/05/20 12:25 17:40 18:06 WBC RBC Hgb Hct MCH RDW Plt Count Lymph % (Auto) [facility] % (Auto) [facility] # Baso # Seg Neutrophils % Seg Neuts % (Manual) Lymphocytes % (Manual) Monocytes % (Manual) Seg Neutrophils # Seg Neutrophils # Man Lymphocytes # (Manual) Monocytes # (Manual) Eosinophils # (Manual) Basophils # (Manual) PT INR APTT ABG pH 7.472 H ABG pO2 99.2 H ABG HCO3 ABG O2 Saturation ABG Base Excess ABG Hemoglobin 7.8 L Oxyhemoglobin Sodium Potassium Chloride Carbon Dioxide BUN Creatinine Glucose POC Glucose 106 H 110 H Lactic Acid Calcium Ionized Calcium Phosphorus Magnesium Total Bilirubin AST ALT Alkaline Phosphatase Ammonia Total Creatine Kinase CK-MB (CK-2) CK-MB (CK-2) Rel Index Total Protein Albumin Urine WBC (Auto) Vancomycin Trough Salicylates Acetaminophen Plasma/Serum Alcohol Crossmatch 01/06/20 01/06/20 01/06/20 00:11 05:16 11:30 WBC RBC Hgb Hct MCH RDW Plt Count Lymph % (Auto) [facility] % (Auto) [facility] # Baso # Seg Neutrophils % Seg Neuts % (Manual) Lymphocytes % (Manual) Monocytes % (Manual) Seg Neutrophils # Seg Neutrophils # Man Lymphocytes # (Manual) Monocytes # (Manual) Eosinophils # (Manual) Basophils # (Manual) PT INR APTT ABG pH ABG pO2 ABG HCO3 ABG O2 Saturation ABG Base Excess ABG Hemoglobin Oxyhemoglobin Sodium Potassium Chloride Carbon Dioxide BUN Creatinine Glucose POC Glucose 108 H 124 H 125 H Lactic Acid Calcium Ionized Calcium Phosphorus Magnesium Total Bilirubin AST ALT Alkaline Phosphatase Ammonia Total Creatine Kinase CK-MB (CK-2) CK-MB (CK-2) Rel Index Total Protein Albumin Urine WBC (Auto) Vancomycin Trough Salicylates Acetaminophen Plasma/Serum Alcohol Crossmatch 01/06/20 01/06/20 01/07/20 17:53 23:51 04:12 WBC 16.5 H RBC 3.29 L Hgb 9.3 L Hct 28.1 L MCH RDW 18.2 H Plt Count 526 H Lymph % (Auto) 8.4 L [facility] % (Auto) [facility] # 1.0 H Baso # Seg Neutrophils % 84.4 H Seg Neuts % (Manual) Lymphocytes % (Manual) Monocytes % (Manual) Seg Neutrophils # 13.9 H Seg Neutrophils # Man Lymphocytes # (Manual) Monocytes # (Manual) Eosinophils # (Manual) Basophils # (Manual) PT INR APTT ABG pH ABG pO2 ABG HCO3 ABG O2 Saturation ABG Base Excess ABG Hemoglobin Oxyhemoglobin Sodium Potassium Chloride Carbon Dioxide BUN Creatinine Glucose POC Glucose 166 H 128 H Lactic Acid Calcium Ionized Calcium Phosphorus Magnesium Total Bilirubin AST ALT Alkaline Phosphatase Ammonia Total Creatine Kinase CK-MB (CK-2) CK-MB (CK-2) Rel Index Total Protein Albumin Urine WBC (Auto) Vancomycin Trough Salicylates Acetaminophen Plasma/Serum Alcohol Crossmatch 01/07/20 01/07/20 01/07/20 04:12 04:45 11:51 WBC RBC Hgb Hct MCH RDW Plt Count Lymph % (Auto) [facility] % (Auto) [facility] # Baso # Seg Neutrophils % Seg Neuts % (Manual) Lymphocytes % (Manual) Monocytes % (Manual) Seg Neutrophils # Seg Neutrophils # Man Lymphocytes # (Manual) Monocytes # (Manual) Eosinophils # (Manual) Basophils # (Manual) PT INR APTT ABG pH ABG pO2 ABG HCO3 ABG O2 Saturation ABG Base Excess ABG Hemoglobin Oxyhemoglobin Sodium 136 L Potassium Chloride Carbon Dioxide 21 L BUN 44 H Creatinine 0.6 L Glucose 124 H POC Glucose 134 H 138 H Lactic Acid Calcium Ionized Calcium Phosphorus Magnesium Total Bilirubin AST ALT Alkaline Phosphatase Ammonia Total Creatine Kinase CK-MB (CK-2) CK-MB (CK-2) Rel Index Total Protein Albumin Urine WBC (Auto) Vancomycin Trough Salicylates Acetaminophen Plasma/Serum Alcohol Crossmatch 01/07/20 01/08/20 01/08/20 17:36 00:33 05:29 WBC RBC Hgb Hct MCH RDW Plt Count Lymph % (Auto) [facility] % (Auto) [facility] # Baso # Seg Neutrophils % Seg Neuts % (Manual) Lymphocytes % (Manual) Monocytes % (Manual) Seg Neutrophils # Seg Neutrophils # Man Lymphocytes # (Manual) Monocytes # (Manual) Eosinophils # (Manual) Basophils # (Manual) PT INR APTT ABG pH ABG pO2 ABG HCO3 ABG O2 Saturation ABG Base Excess ABG Hemoglobin Oxyhemoglobin Sodium Potassium Chloride Carbon Dioxide BUN Creatinine Glucose POC Glucose 128 H 119 H 124 H Lactic Acid Calcium Ionized Calcium Phosphorus Magnesium Total Bilirubin AST ALT Alkaline Phosphatase Ammonia Total Creatine Kinase CK-MB (CK-2) CK-MB (CK-2) Rel Index Total Protein Albumin Urine WBC (Auto) Vancomycin Trough Salicylates Acetaminophen Plasma/Serum Alcohol Crossmatch 01/08/20 01/08/20 01/08/20 12:51 20:25 23:22 WBC RBC Hgb Hct MCH RDW Plt Count Lymph % (Auto) [facility] % (Auto) [facility] # Baso # Seg Neutrophils % Seg Neuts % (Manual) Lymphocytes % (Manual) Monocytes % (Manual) Seg Neutrophils # Seg Neutrophils # Man Lymphocytes # (Manual) Monocytes # (Manual) Eosinophils # (Manual) Basophils # (Manual) PT INR APTT ABG pH ABG pO2 132.2 H ABG HCO3 ABG O2 Saturation ABG Base Excess ABG Hemoglobin Oxyhemoglobin Sodium Potassium Chloride Carbon Dioxide BUN Creatinine Glucose POC Glucose 128 H 127 H Lactic Acid Calcium Ionized Calcium Phosphorus Magnesium Total Bilirubin AST ALT Alkaline Phosphatase Ammonia Total Creatine Kinase CK-MB (CK-2) CK-MB (CK-2) Rel Index Total Protein Albumin Urine WBC (Auto) Vancomycin Trough Salicylates Acetaminophen Plasma/Serum Alcohol Crossmatch 01/09/20 01/09/20 01/09/20 05:48 08:51 11:29 WBC RBC Hgb Hct MCH RDW Plt Count Lymph % (Auto) [facility] % (Auto) [facility] # Baso # Seg Neutrophils % Seg Neuts % (Manual) Lymphocytes % (Manual) Monocytes % (Manual) Seg Neutrophils # Seg Neutrophils # Man Lymphocytes # (Manual) Monocytes # (Manual) Eosinophils # (Manual) Basophils # (Manual) PT INR APTT ABG pH ABG pO2 94.3 H ABG HCO3 ABG O2 Saturation ABG Base Excess ABG Hemoglobin 9.5 L Oxyhemoglobin Sodium Potassium Chloride Carbon Dioxide BUN Creatinine Glucose POC Glucose 120 H 112 H Lactic Acid Calcium Ionized Calcium Phosphorus Magnesium Total Bilirubin AST ALT Alkaline Phosphatase Ammonia Total Creatine Kinase CK-MB (CK-2) CK-MB (CK-2) Rel Index Total Protein Albumin Urine WBC (Auto) Vancomycin Trough Salicylates Acetaminophen Plasma/Serum Alcohol Crossmatch 01/09/20 01/10/20 01/10/20 17:57 05:17 12:28 WBC RBC Hgb Hct MCH RDW Plt Count Lymph % (Auto) [facility] % (Auto) [facility] # Baso # Seg Neutrophils % Seg Neuts % (Manual) Lymphocytes % (Manual) Monocytes % (Manual) Seg Neutrophils # Seg Neutrophils # Man Lymphocytes # (Manual) Monocytes # (Manual) Eosinophils # (Manual) Basophils # (Manual) PT INR APTT ABG pH ABG pO2 ABG HCO3 ABG O2 Saturation ABG Base Excess ABG Hemoglobin Oxyhemoglobin Sodium Potassium Chloride Carbon Dioxide BUN Creatinine Glucose POC Glucose 122 H 115 H 116 H Lactic Acid Calcium Ionized Calcium Phosphorus Magnesium Total Bilirubin AST ALT Alkaline Phosphatase Ammonia Total Creatine Kinase CK-MB (CK-2) CK-MB (CK-2) Rel Index Total Protein Albumin Urine WBC (Auto) Vancomycin Trough Salicylates Acetaminophen Plasma/Serum Alcohol Crossmatch 01/10/20 01/10/20 01/11/20 18:25 23:47 06:05 WBC RBC Hgb Hct MCH RDW Plt Count Lymph % (Auto) [facility] % (Auto) [facility] # Baso # Seg Neutrophils % Seg Neuts % (Manual) Lymphocytes % (Manual) Monocytes % (Manual) Seg Neutrophils # Seg Neutrophils # Man Lymphocytes # (Manual) Monocytes # (Manual) Eosinophils # (Manual) Basophils # (Manual) PT INR APTT ABG pH ABG pO2 ABG HCO3 ABG O2 Saturation ABG Base Excess ABG Hemoglobin Oxyhemoglobin Sodium Potassium Chloride Carbon Dioxide BUN Creatinine Glucose POC Glucose 123 H 115 H 151 H Lactic Acid Calcium Ionized Calcium Phosphorus Magnesium Total Bilirubin AST ALT Alkaline Phosphatase Ammonia Total Creatine Kinase CK-MB (CK-2) CK-MB (CK-2) Rel Index Total Protein Albumin Urine WBC (Auto) Vancomycin Trough Salicylates Acetaminophen Plasma/Serum Alcohol Crossmatch 01/11/20 01/11/20 01/11/20 07:00 07:00 12:27 WBC 11.8 H RBC 3.40 L Hgb 9.4 L Hct 29.3 L MCH RDW 18.1 H Plt Count 549 H Lymph % (Auto) [facility] % (Auto) 9.1 H [facility] # 1.1 H Baso # Seg Neutrophils % 73.3 H Seg Neuts % (Manual) Lymphocytes % (Manual) Monocytes % (Manual) Seg Neutrophils # 8.7 H Seg Neutrophils # Man Lymphocytes # (Manual) Monocytes # (Manual) Eosinophils # (Manual) Basophils # (Manual) PT INR APTT ABG pH ABG pO2 ABG HCO3 ABG O2 Saturation ABG Base Excess ABG Hemoglobin Oxyhemoglobin Sodium 134 L Potassium Chloride 97.7 L Carbon Dioxide 21 L BUN 38 H Creatinine 0.5 L Glucose 168 H POC Glucose 117 H Lactic Acid Calcium 10.5 H Ionized Calcium Phosphorus Magnesium Total Bilirubin AST ALT Alkaline Phosphatase Ammonia Total Creatine Kinase CK-MB (CK-2) CK-MB (CK-2) Rel Index Total Protein Albumin Urine WBC (Auto) Vancomycin Trough Salicylates Acetaminophen Plasma/Serum Alcohol Crossmatch 01/11/20 01/12/20 01/12/20 18:19 00:53 05:24 WBC RBC Hgb Hct MCH RDW Plt Count Lymph % (Auto) [facility] % (Auto) [facility] # Baso # Seg Neutrophils % Seg Neuts % (Manual) Lymphocytes % (Manual) Monocytes % (Manual) Seg Neutrophils # Seg Neutrophils # Man Lymphocytes # (Manual) Monocytes # (Manual) Eosinophils # (Manual) Basophils # (Manual) PT INR APTT ABG pH ABG pO2 ABG HCO3 ABG O2 Saturation ABG Base Excess ABG Hemoglobin Oxyhemoglobin Sodium Potassium Chloride Carbon Dioxide BUN Creatinine Glucose POC Glucose 126 H 126 H 128 H Lactic Acid Calcium Ionized Calcium Phosphorus Magnesium Total Bilirubin AST ALT Alkaline Phosphatase Ammonia Total Creatine Kinase CK-MB (CK-2) CK-MB (CK-2) Rel Index Total Protein Albumin Urine WBC (Auto) Vancomycin Trough Salicylates Acetaminophen Plasma/Serum Alcohol Crossmatch 01/12/20 01/12/20 01/13/20 13:39 18:02 00:27 WBC RBC Hgb Hct MCH RDW Plt Count Lymph % (Auto) [facility] % (Auto) [facility] # Baso # Seg Neutrophils % Seg Neuts % (Manual) Lymphocytes % (Manual) Monocytes % (Manual) Seg Neutrophils # Seg Neutrophils # Man Lymphocytes # (Manual) Monocytes # (Manual) Eosinophils # (Manual) Basophils # (Manual) PT INR APTT ABG pH ABG pO2 ABG HCO3 ABG O2 Saturation ABG Base Excess ABG Hemoglobin Oxyhemoglobin Sodium Potassium Chloride Carbon Dioxide BUN Creatinine Glucose POC Glucose 146 H 125 H 131 H Lactic Acid Calcium Ionized Calcium Phosphorus Magnesium Total Bilirubin AST ALT Alkaline Phosphatase Ammonia Total Creatine Kinase CK-MB (CK-2) CK-MB (CK-2) Rel Index Total Protein Albumin Urine WBC (Auto) Vancomycin Trough Salicylates Acetaminophen Plasma/Serum Alcohol Crossmatch 01/13/20 01/13/20 01/13/20 05:44 11:54 17:18 WBC RBC Hgb Hct MCH RDW Plt Count Lymph % (Auto) [facility] % (Auto) [facility] # Baso # Seg Neutrophils % Seg Neuts % (Manual) Lymphocytes % (Manual) Monocytes % (Manual) Seg Neutrophils # Seg Neutrophils # Man Lymphocytes # (Manual) Monocytes # (Manual) Eosinophils # (Manual) Basophils # (Manual) PT INR APTT ABG pH ABG pO2 ABG HCO3 ABG O2 Saturation ABG Base Excess ABG Hemoglobin Oxyhemoglobin Sodium Potassium Chloride Carbon Dioxide BUN Creatinine Glucose POC Glucose 148 H 140 H 130 H Lactic Acid Calcium Ionized Calcium Phosphorus Magnesium Total Bilirubin AST ALT Alkaline Phosphatase Ammonia Total Creatine Kinase CK-MB (CK-2) CK-MB (CK-2) Rel Index Total Protein Albumin Urine WBC (Auto) Vancomycin Trough Salicylates Acetaminophen Plasma/Serum Alcohol Crossmatch 01/14/20 01/14/20 01/14/20 00:16 05:45 12:19 WBC RBC Hgb Hct MCH RDW Plt Count Lymph % (Auto) [facility] % (Auto) [facility] # Baso # Seg Neutrophils % Seg Neuts % (Manual) Lymphocytes % (Manual) Monocytes % (Manual) Seg Neutrophils # Seg Neutrophils # Man Lymphocytes # (Manual) Monocytes # (Manual) Eosinophils # (Manual) Basophils # (Manual) PT INR APTT ABG pH ABG pO2 ABG HCO3 ABG O2 Saturation ABG Base Excess ABG Hemoglobin Oxyhemoglobin Sodium Potassium Chloride Carbon Dioxide BUN Creatinine Glucose POC Glucose 125 H 146 H 147 H Lactic Acid Calcium Ionized Calcium Phosphorus Magnesium Total Bilirubin AST ALT Alkaline Phosphatase Ammonia Total Creatine Kinase CK-MB (CK-2) CK-MB (CK-2) Rel Index Total Protein Albumin Urine WBC (Auto) Vancomycin Trough Salicylates Acetaminophen Plasma/Serum Alcohol Crossmatch 01/14/20 01/14/20 01/15/20 18:10 23:54 05:14 WBC RBC Hgb Hct MCH RDW Plt Count Lymph % (Auto) [facility] % (Auto) [facility] # Baso # Seg Neutrophils % Seg Neuts % (Manual) Lymphocytes % (Manual) Monocytes % (Manual) Seg Neutrophils # Seg Neutrophils # Man Lymphocytes # (Manual) Monocytes # (Manual) Eosinophils # (Manual) Basophils # (Manual) PT INR APTT ABG pH ABG pO2 ABG HCO3 ABG O2 Saturation ABG Base Excess ABG Hemoglobin Oxyhemoglobin Sodium Potassium Chloride Carbon Dioxide BUN Creatinine Glucose POC Glucose 136 H 109 H 111 H Lactic Acid Calcium Ionized Calcium Phosphorus Magnesium Total Bilirubin AST ALT Alkaline Phosphatase Ammonia Total Creatine Kinase CK-MB (CK-2) CK-MB (CK-2) Rel Index Total Protein Albumin Urine WBC (Auto) Vancomycin Trough Salicylates Acetaminophen Plasma/Serum Alcohol Crossmatch 01/15/20 01/15/20 01/16/20 12:34 23:25 05:06 WBC RBC Hgb Hct MCH RDW Plt Count Lymph % (Auto) [facility] % (Auto) [facility] # Baso # Seg Neutrophils % Seg Neuts % (Manual) Lymphocytes % (Manual) Monocytes % (Manual) Seg Neutrophils # Seg Neutrophils # Man Lymphocytes # (Manual) Monocytes # (Manual) Eosinophils # (Manual) Basophils # (Manual) PT INR APTT ABG pH ABG pO2 ABG HCO3 ABG O2 Saturation ABG Base Excess ABG Hemoglobin Oxyhemoglobin Sodium Potassium Chloride Carbon Dioxide BUN Creatinine Glucose POC Glucose 131 H 120 H 121 H Lactic Acid Calcium Ionized Calcium Phosphorus Magnesium Total Bilirubin AST ALT Alkaline Phosphatase Ammonia Total Creatine Kinase CK-MB (CK-2) CK-MB (CK-2) Rel Index Total Protein Albumin Urine WBC (Auto) Vancomycin Trough Salicylates Acetaminophen Plasma/Serum Alcohol Crossmatch 01/16/20 01/16/20 01/17/20 12:15 23:46 05:32 WBC 13.6 H RBC 3.27 L Hgb 9.3 L Hct 28.5 L MCH RDW 17.0 H Plt Count 490 H Lymph % (Auto) 13.1 L [facility] % (Auto) [facility] # 1.0 H Baso # Seg Neutrophils % 77.5 H Seg Neuts % (Manual) Lymphocytes % (Manual) Monocytes % (Manual) Seg Neutrophils # 10.5 H Seg Neutrophils # Man Lymphocytes # (Manual) Monocytes # (Manual) Eosinophils # (Manual) Basophils # (Manual) PT INR APTT ABG pH ABG pO2 ABG HCO3 ABG O2 Saturation ABG Base Excess ABG Hemoglobin Oxyhemoglobin Sodium Potassium Chloride Carbon Dioxide BUN Creatinine Glucose POC Glucose 152 H 107 H Lactic Acid Calcium Ionized Calcium Phosphorus Magnesium Total Bilirubin AST ALT Alkaline Phosphatase Ammonia Total Creatine Kinase CK-MB (CK-2) CK-MB (CK-2) Rel Index Total Protein Albumin Urine WBC (Auto) Vancomycin Trough Salicylates Acetaminophen Plasma/Serum Alcohol Crossmatch 01/17/20 01/17/20 01/17/20 06:47 12:16 17:21 WBC RBC Hgb Hct MCH RDW Plt Count Lymph % (Auto) [facility] % (Auto) [facility] # Baso # Seg Neutrophils % Seg Neuts % (Manual) Lymphocytes % (Manual) Monocytes % (Manual) Seg Neutrophils # Seg Neutrophils # Man Lymphocytes # (Manual) Monocytes # (Manual) Eosinophils # (Manual) Basophils # (Manual) PT INR APTT ABG pH ABG pO2 ABG HCO3 ABG O2 Saturation ABG Base Excess ABG Hemoglobin Oxyhemoglobin Sodium Potassium Chloride Carbon Dioxide BUN Creatinine Glucose POC Glucose 112 H 145 H 150 H Lactic Acid Calcium Ionized Calcium Phosphorus Magnesium Total Bilirubin AST ALT Alkaline Phosphatase Ammonia Total Creatine Kinase CK-MB (CK-2) CK-MB (CK-2) Rel Index Total Protein Albumin Urine WBC (Auto) Vancomycin Trough Salicylates Acetaminophen Plasma/Serum Alcohol Crossmatch 01/17/20 01/18/20 01/18/20 23:34 05:47 12:43 WBC RBC Hgb Hct MCH RDW Plt Count Lymph % (Auto) [facility] % (Auto) [facility] # Baso # Seg Neutrophils % Seg Neuts % (Manual) Lymphocytes % (Manual) Monocytes % (Manual) Seg Neutrophils # Seg Neutrophils # Man Lymphocytes # (Manual) Monocytes # (Manual) Eosinophils # (Manual) Basophils # (Manual) PT INR APTT ABG pH ABG pO2 ABG HCO3 ABG O2 Saturation ABG Base Excess ABG Hemoglobin Oxyhemoglobin Sodium Potassium Chloride Carbon Dioxide BUN Creatinine Glucose POC Glucose 160 H 130 H 124 H Lactic Acid Calcium Ionized Calcium Phosphorus Magnesium Total Bilirubin AST ALT Alkaline Phosphatase Ammonia Total Creatine Kinase CK-MB (CK-2) CK-MB (CK-2) Rel Index Total Protein Albumin Urine WBC (Auto) Vancomycin Trough Salicylates Acetaminophen Plasma/Serum Alcohol Crossmatch 01/18/20 01/19/20 01/19/20 18:26 00:14 06:24 WBC RBC Hgb Hct MCH RDW Plt Count Lymph % (Auto) [facility] % (Auto) [facility] # Baso # Seg Neutrophils % Seg Neuts % (Manual) Lymphocytes % (Manual) Monocytes % (Manual) Seg Neutrophils # Seg Neutrophils # Man Lymphocytes # (Manual) Monocytes # (Manual) Eosinophils # (Manual) Basophils # (Manual) PT INR APTT ABG pH ABG pO2 ABG HCO3 ABG O2 Saturation ABG Base Excess ABG Hemoglobin Oxyhemoglobin Sodium Potassium Chloride Carbon Dioxide BUN Creatinine Glucose POC Glucose 119 H 114 H 144 H Lactic Acid Calcium Ionized Calcium Phosphorus Magnesium Total Bilirubin AST ALT Alkaline Phosphatase Ammonia Total Creatine Kinase CK-MB (CK-2) CK-MB (CK-2) Rel Index Total Protein Albumin Urine WBC (Auto) Vancomycin Trough Salicylates Acetaminophen Plasma/Serum Alcohol Crossmatch 01/19/20 01/19/20 01/20/20 12:24 17:50 12:06 WBC RBC Hgb Hct MCH RDW Plt Count Lymph % (Auto) [facility] % (Auto) [facility] # Baso # Seg Neutrophils % Seg Neuts % (Manual) Lymphocytes % (Manual) Monocytes % (Manual) Seg Neutrophils # Seg Neutrophils # Man Lymphocytes # (Manual) Monocytes # (Manual) Eosinophils # (Manual) Basophils # (Manual) PT INR APTT ABG pH ABG pO2 ABG HCO3 ABG O2 Saturation ABG Base Excess ABG Hemoglobin Oxyhemoglobin Sodium Potassium Chloride Carbon Dioxide BUN Creatinine Glucose POC Glucose 132 H 144 H 135 H Lactic Acid Calcium Ionized Calcium Phosphorus Magnesium Total Bilirubin AST ALT Alkaline Phosphatase Ammonia Total Creatine Kinase CK-MB (CK-2) CK-MB (CK-2) Rel Index Total Protein Albumin Urine WBC (Auto) Vancomycin Trough Salicylates Acetaminophen Plasma/Serum Alcohol Crossmatch 01/21/20 01/21/20 01/21/20 05:46 13:02 23:49 WBC RBC Hgb Hct MCH RDW Plt Count Lymph % (Auto) [facility] % (Auto) [facility] # Baso # Seg Neutrophils % Seg Neuts % (Manual) Lymphocytes % (Manual) Monocytes % (Manual) Seg Neutrophils # Seg Neutrophils # Man Lymphocytes # (Manual) Monocytes # (Manual) Eosinophils # (Manual) Basophils # (Manual) PT INR APTT ABG pH ABG pO2 ABG HCO3 ABG O2 Saturation ABG Base Excess ABG Hemoglobin Oxyhemoglobin Sodium Potassium Chloride Carbon Dioxide BUN Creatinine Glucose POC Glucose 114 H 136 H 120 H Lactic Acid Calcium Ionized Calcium Phosphorus Magnesium Total Bilirubin AST ALT Alkaline Phosphatase Ammonia Total Creatine Kinase CK-MB (CK-2) CK-MB (CK-2) Rel Index Total Protein Albumin Urine WBC (Auto) Vancomycin Trough Salicylates Acetaminophen Plasma/Serum Alcohol Crossmatch 01/22/20 01/22/20 01/22/20 05:41 11:44 16:31 WBC RBC Hgb Hct MCH RDW Plt Count Lymph % (Auto) [facility] % (Auto) [facility] # Baso # Seg Neutrophils % Seg Neuts % (Manual) Lymphocytes % (Manual) Monocytes % (Manual) Seg Neutrophils # Seg Neutrophils # Man Lymphocytes # (Manual) Monocytes # (Manual) Eosinophils # (Manual) Basophils # (Manual) PT INR APTT ABG pH ABG pO2 ABG HCO3 ABG O2 Saturation ABG Base Excess ABG Hemoglobin Oxyhemoglobin Sodium Potassium Chloride Carbon Dioxide BUN Creatinine Glucose POC Glucose 124 H 173 H 111 H Lactic Acid Calcium Ionized Calcium Phosphorus Magnesium Total Bilirubin AST ALT Alkaline Phosphatase Ammonia Total Creatine Kinase CK-MB (CK-2) CK-MB (CK-2) Rel Index Total Protein Albumin Urine WBC (Auto) Vancomycin Trough Salicylates Acetaminophen Plasma/Serum Alcohol Crossmatch 01/22/20 01/23/20 01/23/20 23:25 05:15 12:15 WBC RBC Hgb Hct MCH RDW Plt Count Lymph % (Auto) [facility] % (Auto) [facility] # Baso # Seg Neutrophils % Seg Neuts % (Manual) Lymphocytes % (Manual) Monocytes % (Manual) Seg Neutrophils # Seg Neutrophils # Man Lymphocytes # (Manual) Monocytes # (Manual) Eosinophils # (Manual) Basophils # (Manual) PT INR APTT ABG pH ABG pO2 ABG HCO3 ABG O2 Saturation ABG Base Excess ABG Hemoglobin Oxyhemoglobin Sodium Potassium Chloride Carbon Dioxide BUN Creatinine Glucose POC Glucose 134 H 117 H 129 H Lactic Acid Calcium Ionized Calcium Phosphorus Magnesium Total Bilirubin AST ALT Alkaline Phosphatase Ammonia Total Creatine Kinase CK-MB (CK-2) CK-MB (CK-2) Rel Index Total Protein Albumin Urine WBC (Auto) Vancomycin Trough Salicylates Acetaminophen Plasma/Serum Alcohol Crossmatch 01/23/20 01/23/20 01/23/20 16:58 21:17 23:47 WBC RBC Hgb Hct MCH RDW Plt Count Lymph % (Auto) [facility] % (Auto) [facility] # Baso # Seg Neutrophils % Seg Neuts % (Manual) Lymphocytes % (Manual) Monocytes % (Manual) Seg Neutrophils # Seg Neutrophils # Man Lymphocytes # (Manual) Monocytes # (Manual) Eosinophils # (Manual) Basophils # (Manual) PT INR APTT ABG pH ABG pO2 ABG HCO3 ABG O2 Saturation ABG Base Excess ABG Hemoglobin Oxyhemoglobin Sodium Potassium Chloride Carbon Dioxide BUN Creatinine Glucose POC Glucose 156 H 185 H 156 H Lactic Acid Calcium Ionized Calcium Phosphorus Magnesium Total Bilirubin AST ALT Alkaline Phosphatase Ammonia Total Creatine Kinase CK-MB (CK-2) CK-MB (CK-2) Rel Index Total Protein Albumin Urine WBC (Auto) Vancomycin Trough Salicylates Acetaminophen Plasma/Serum Alcohol Crossmatch 01/24/20 01/24/20 01/24/20 04:47 04:47 05:59 WBC 17.8 H RBC 3.60 L Hgb Hct MCH RDW 16.2 H Plt Count 688 H Lymph % (Auto) 11.8 L [facility] % (Auto) 7.5 H [facility] # 1.3 H Baso # Seg Neutrophils % 79.9 H Seg Neuts % (Manual) Lymphocytes % (Manual) Monocytes % (Manual) Seg Neutrophils # 14.2 H Seg Neutrophils # Man Lymphocytes # (Manual) Monocytes # (Manual) Eosinophils # (Manual) Basophils # (Manual) PT INR APTT ABG pH ABG pO2 ABG HCO3 ABG O2 Saturation ABG Base Excess ABG Hemoglobin Oxyhemoglobin Sodium 131 L Potassium Chloride 91.2 L Carbon Dioxide BUN 22 H Creatinine 0.3 L Glucose 123 H POC Glucose 147 H Lactic Acid Calcium 10.9 H Ionized Calcium Phosphorus Magnesium Total Bilirubin AST ALT Alkaline Phosphatase Ammonia Total Creatine Kinase CK-MB (CK-2) CK-MB (CK-2) Rel Index Total Protein Albumin Urine WBC (Auto) Vancomycin Trough Salicylates Acetaminophen Plasma/Serum Alcohol Crossmatch 01/24/20 01/24/20 01/25/20 11:47 16:45 00:18 WBC RBC Hgb Hct MCH RDW Plt Count Lymph % (Auto) [facility] % (Auto) [facility] # Baso # Seg Neutrophils % Seg Neuts % (Manual) Lymphocytes % (Manual) Monocytes % (Manual) Seg Neutrophils # Seg Neutrophils # Man Lymphocytes # (Manual) Monocytes # (Manual) Eosinophils # (Manual) Basophils # (Manual) PT INR APTT ABG pH ABG pO2 ABG HCO3 ABG O2 Saturation ABG Base Excess ABG Hemoglobin Oxyhemoglobin Sodium Potassium Chloride Carbon Dioxide BUN Creatinine Glucose POC Glucose 114 H 108 H 119 H Lactic Acid Calcium Ionized Calcium Phosphorus Magnesium Total Bilirubin AST ALT Alkaline Phosphatase Ammonia Total Creatine Kinase CK-MB (CK-2) CK-MB (CK-2) Rel Index Total Protein Albumin Urine WBC (Auto) Vancomycin Trough Salicylates Acetaminophen Plasma/Serum Alcohol Crossmatch 01/25/20 01/25/20 01/25/20 07:18 11:58 16:56 WBC RBC Hgb Hct MCH RDW Plt Count Lymph % (Auto) [facility] % (Auto) [facility] # Baso # Seg Neutrophils % Seg Neuts % (Manual) Lymphocytes % (Manual) Monocytes % (Manual) Seg Neutrophils # Seg Neutrophils # Man Lymphocytes # (Manual) Monocytes # (Manual) Eosinophils # (Manual) Basophils # (Manual) PT INR APTT ABG pH ABG pO2 ABG HCO3 ABG O2 Saturation ABG Base Excess ABG Hemoglobin Oxyhemoglobin Sodium Potassium Chloride Carbon Dioxide BUN Creatinine Glucose POC Glucose 136 H 136 H 147 H Lactic Acid Calcium Ionized Calcium Phosphorus Magnesium Total Bilirubin AST ALT Alkaline Phosphatase Ammonia Total Creatine Kinase CK-MB (CK-2) CK-MB (CK-2) Rel Index Total Protein Albumin Urine WBC (Auto) Vancomycin Trough Salicylates Acetaminophen Plasma/Serum Alcohol Crossmatch 01/26/20 01/26/20 01/26/20 00:29 05:59 05:59 WBC 12.8 H RBC Hgb Hct MCH RDW 16.4 H Plt Count 743 H Lymph % (Auto) [facility] % (Auto) [facility] # 0.9 H Baso # Seg Neutrophils % 76.2 H Seg Neuts % (Manual) Lymphocytes % (Manual) Monocytes % (Manual) Seg Neutrophils # 9.8 H Seg Neutrophils # Man Lymphocytes # (Manual) Monocytes # (Manual) Eosinophils # (Manual) Basophils # (Manual) PT INR APTT ABG pH ABG pO2 ABG HCO3 ABG O2 Saturation ABG Base Excess ABG Hemoglobin Oxyhemoglobin Sodium 132 L Potassium Chloride 90.9 L Carbon Dioxide BUN 23 H Creatinine 0.4 L Glucose 122 H POC Glucose 107 H Lactic Acid Calcium 11.0 H Ionized Calcium Phosphorus Magnesium Total Bilirubin AST ALT Alkaline Phosphatase Ammonia Total Creatine Kinase CK-MB (CK-2) CK-MB (CK-2) Rel Index Total Protein Albumin Urine WBC (Auto) Vancomycin Trough Salicylates Acetaminophen Plasma/Serum Alcohol Crossmatch 01/26/20 01/26/20 01/26/20 06:27 12:06 16:49 WBC RBC Hgb Hct MCH RDW Plt Count Lymph % (Auto) [facility] % (Auto) [facility] # Baso # Seg Neutrophils % Seg Neuts % (Manual) Lymphocytes % (Manual) Monocytes % (Manual) Seg Neutrophils # Seg Neutrophils # Man Lymphocytes # (Manual) Monocytes # (Manual) Eosinophils # (Manual) Basophils # (Manual) PT INR APTT ABG pH ABG pO2 ABG HCO3 ABG O2 Saturation ABG Base Excess ABG Hemoglobin Oxyhemoglobin Sodium Potassium Chloride Carbon Dioxide BUN Creatinine Glucose POC Glucose 132 H 132 H 110 H Lactic Acid Calcium Ionized Calcium Phosphorus Magnesium Total Bilirubin AST ALT Alkaline Phosphatase Ammonia Total Creatine Kinase CK-MB (CK-2) CK-MB (CK-2) Rel Index Total Protein Albumin Urine WBC (Auto) Vancomycin Trough Salicylates Acetaminophen Plasma/Serum Alcohol Crossmatch 01/27/20 01/27/20 01/27/20 00:08 11:49 16:24 WBC RBC Hgb Hct MCH RDW Plt Count Lymph % (Auto) [facility] % (Auto) [facility] # Baso # Seg Neutrophils % Seg Neuts % (Manual) Lymphocytes % (Manual) Monocytes % (Manual) Seg Neutrophils # Seg Neutrophils # Man Lymphocytes # (Manual) Monocytes # (Manual) Eosinophils # (Manual) Basophils # (Manual) PT INR APTT ABG pH ABG pO2 ABG HCO3 ABG O2 Saturation ABG Base Excess ABG Hemoglobin Oxyhemoglobin Sodium Potassium Chloride Carbon Dioxide BUN Creatinine Glucose POC Glucose 107 H 119 H 129 H Lactic Acid Calcium Ionized Calcium Phosphorus Magnesium Total Bilirubin AST ALT Alkaline Phosphatase Ammonia Total Creatine Kinase CK-MB (CK-2) CK-MB (CK-2) Rel Index Total Protein Albumin Urine WBC (Auto) Vancomycin Trough Salicylates Acetaminophen Plasma/Serum Alcohol Crossmatch 01/27/20 01/28/20 01/28/20 18:28 01:00 06:22 WBC RBC Hgb Hct MCH RDW Plt Count Lymph % (Auto) [facility] % (Auto) [facility] # Baso # Seg Neutrophils % Seg Neuts % (Manual) Lymphocytes % (Manual) Monocytes % (Manual) Seg Neutrophils # Seg Neutrophils # Man Lymphocytes # (Manual) Monocytes # (Manual) Eosinophils # (Manual) Basophils # (Manual) PT INR APTT ABG pH ABG pO2 ABG HCO3 ABG O2 Saturation ABG Base Excess ABG Hemoglobin Oxyhemoglobin Sodium Potassium Chloride Carbon Dioxide BUN Creatinine Glucose POC Glucose 126 H 121 H 114 H Lactic Acid Calcium Ionized Calcium Phosphorus Magnesium Total Bilirubin AST ALT Alkaline Phosphatase Ammonia Total Creatine Kinase CK-MB (CK-2) CK-MB (CK-2) Rel Index Total Protein Albumin Urine WBC (Auto) Vancomycin Trough Salicylates Acetaminophen Plasma/Serum Alcohol Crossmatch 01/28/20 01/28/20 01/29/20 11:47 18:00 00:05 WBC RBC Hgb Hct MCH RDW Plt Count Lymph % (Auto) [facility] % (Auto) [facility] # Baso # Seg Neutrophils % Seg Neuts % (Manual) Lymphocytes % (Manual) Monocytes % (Manual) Seg Neutrophils # Seg Neutrophils # Man Lymphocytes # (Manual) Monocytes # (Manual) Eosinophils # (Manual) Basophils # (Manual) PT INR APTT ABG pH ABG pO2 ABG HCO3 ABG O2 Saturation ABG Base Excess ABG Hemoglobin Oxyhemoglobin Sodium Potassium Chloride Carbon Dioxide BUN Creatinine Glucose POC Glucose 106 H 117 H 127 H Lactic Acid Calcium Ionized Calcium Phosphorus Magnesium Total Bilirubin AST ALT Alkaline Phosphatase Ammonia Total Creatine Kinase CK-MB (CK-2) CK-MB (CK-2) Rel Index Total Protein Albumin Urine WBC (Auto) Vancomycin Trough Salicylates Acetaminophen Plasma/Serum Alcohol Crossmatch 01/29/20 01/29/20 01/29/20 06:04 11:40 16:38 WBC RBC Hgb Hct MCH RDW Plt Count Lymph % (Auto) [facility] % (Auto) [facility] # Baso # Seg Neutrophils % Seg Neuts % (Manual) Lymphocytes % (Manual) Monocytes % (Manual) Seg Neutrophils # Seg Neutrophils # Man Lymphocytes # (Manual) Monocytes # (Manual) Eosinophils # (Manual) Basophils # (Manual) PT INR APTT ABG pH ABG pO2 ABG HCO3 ABG O2 Saturation ABG Base Excess ABG Hemoglobin Oxyhemoglobin Sodium Potassium Chloride Carbon Dioxide BUN Creatinine Glucose POC Glucose 147 H 139 H 143 H Lactic Acid Calcium Ionized Calcium Phosphorus Magnesium Total Bilirubin AST ALT Alkaline Phosphatase Ammonia Total Creatine Kinase CK-MB (CK-2) CK-MB (CK-2) Rel Index Total Protein Albumin Urine WBC (Auto) Vancomycin Trough Salicylates Acetaminophen Plasma/Serum Alcohol Crossmatch 01/29/20 01/30/20 01/30/20 23:46 06:43 12:07 WBC RBC Hgb Hct MCH RDW Plt Count Lymph % (Auto) [facility] % (Auto) [facility] # Baso # Seg Neutrophils % Seg Neuts % (Manual) Lymphocytes % (Manual) Monocytes % (Manual) Seg Neutrophils # Seg Neutrophils # Man Lymphocytes # (Manual) Monocytes # (Manual) Eosinophils # (Manual) Basophils # (Manual) PT INR APTT ABG pH ABG pO2 ABG HCO3 ABG O2 Saturation ABG Base Excess ABG Hemoglobin Oxyhemoglobin Sodium Potassium Chloride Carbon Dioxide BUN Creatinine Glucose POC Glucose 122 H 122 H 134 H Lactic Acid Calcium Ionized Calcium Phosphorus Magnesium Total Bilirubin AST ALT Alkaline Phosphatase Ammonia Total Creatine Kinase CK-MB (CK-2) CK-MB (CK-2) Rel Index Total Protein Albumin Urine WBC (Auto) Vancomycin Trough Salicylates Acetaminophen Plasma/Serum Alcohol Crossmatch 01/30/20 01/31/20 01/31/20 17:59 00:52 05:54 WBC RBC Hgb Hct MCH RDW Plt Count Lymph % (Auto) [facility] % (Auto) [facility] # Baso # Seg Neutrophils % Seg Neuts % (Manual) Lymphocytes % (Manual) Monocytes % (Manual) Seg Neutrophils # Seg Neutrophils # Man Lymphocytes # (Manual) Monocytes # (Manual) Eosinophils # (Manual) Basophils # (Manual) PT INR APTT ABG pH ABG pO2 ABG HCO3 ABG O2 Saturation ABG Base Excess ABG Hemoglobin Oxyhemoglobin Sodium Potassium Chloride Carbon Dioxide BUN Creatinine Glucose POC Glucose 116 H 127 H 127 H Lactic Acid Calcium Ionized Calcium Phosphorus Magnesium Total Bilirubin AST ALT Alkaline Phosphatase Ammonia Total Creatine Kinase CK-MB (CK-2) CK-MB (CK-2) Rel Index Total Protein Albumin Urine WBC (Auto) Vancomycin Trough Salicylates Acetaminophen Plasma/Serum Alcohol Crossmatch 01/31/20 02/01/20 02/01/20 12:20 00:48 12:21 WBC RBC Hgb Hct MCH RDW Plt Count Lymph % (Auto) [facility] % (Auto) [facility] # Baso # Seg Neutrophils % Seg Neuts % (Manual) Lymphocytes % (Manual) Monocytes % (Manual) Seg Neutrophils # Seg Neutrophils # Man Lymphocytes # (Manual) Monocytes # (Manual) Eosinophils # (Manual) Basophils # (Manual) PT INR APTT ABG pH ABG pO2 ABG HCO3 ABG O2 Saturation ABG Base Excess ABG Hemoglobin Oxyhemoglobin Sodium Potassium Chloride Carbon Dioxide BUN Creatinine Glucose POC Glucose 126 H 154 H 123 H Lactic Acid Calcium Ionized Calcium Phosphorus Magnesium Total Bilirubin AST ALT Alkaline Phosphatase Ammonia Total Creatine Kinase CK-MB (CK-2) CK-MB (CK-2) Rel Index Total Protein Albumin Urine WBC (Auto) Vancomycin Trough Salicylates Acetaminophen Plasma/Serum Alcohol Crossmatch 02/01/20 02/02/20 02/02/20 23:58 06:08 11:50 WBC RBC Hgb Hct MCH RDW Plt Count Lymph % (Auto) [facility] % (Auto) [facility] # Baso # Seg Neutrophils % Seg Neuts % (Manual) Lymphocytes % (Manual) Monocytes % (Manual) Seg Neutrophils # Seg Neutrophils # Man Lymphocytes # (Manual) Monocytes # (Manual) Eosinophils # (Manual) Basophils # (Manual) PT INR APTT ABG pH ABG pO2 ABG HCO3 ABG O2 Saturation ABG Base Excess ABG Hemoglobin Oxyhemoglobin Sodium Potassium Chloride Carbon Dioxide BUN Creatinine Glucose POC Glucose 125 H 144 H 131 H Lactic Acid Calcium Ionized Calcium Phosphorus Magnesium Total Bilirubin AST ALT Alkaline Phosphatase Ammonia Total Creatine Kinase CK-MB (CK-2) CK-MB (CK-2) Rel Index Total Protein Albumin Urine WBC (Auto) Vancomycin Trough Salicylates Acetaminophen Plasma/Serum Alcohol Crossmatch 02/02/20 02/03/20 02/03/20 17:53 00:14 05:47 WBC RBC Hgb Hct MCH RDW Plt Count Lymph % (Auto) [facility] % (Auto) [facility] # Baso # Seg Neutrophils % Seg Neuts % (Manual) Lymphocytes % (Manual) Monocytes % (Manual) Seg Neutrophils # Seg Neutrophils # Man Lymphocytes # (Manual) Monocytes # (Manual) Eosinophils # (Manual) Basophils # (Manual) PT INR APTT ABG pH ABG pO2 ABG HCO3 ABG O2 Saturation ABG Base Excess ABG Hemoglobin Oxyhemoglobin Sodium Potassium Chloride Carbon Dioxide BUN Creatinine Glucose POC Glucose 108 H 122 H 118 H Lactic Acid Calcium Ionized Calcium Phosphorus Magnesium Total Bilirubin AST ALT Alkaline Phosphatase Ammonia Total Creatine Kinase CK-MB (CK-2) CK-MB (CK-2) Rel Index Total Protein Albumin Urine WBC (Auto) Vancomycin Trough Salicylates Acetaminophen Plasma/Serum Alcohol Crossmatch 02/03/20 02/03/20 02/03/20 05:59 05:59 11:49 WBC RBC 3.48 L Hgb Hct 29.9 L MCH RDW 16.2 H Plt Count 707 H Lymph % (Auto) [facility] % (Auto) 9.3 H [facility] # 0.9 H Baso # Seg Neutrophils % Seg Neuts % (Manual) Lymphocytes % (Manual) Monocytes % (Manual) Seg Neutrophils # Seg Neutrophils # Man Lymphocytes # (Manual) Monocytes # (Manual) Eosinophils # (Manual) Basophils # (Manual) PT INR APTT ABG pH ABG pO2 ABG HCO3 ABG O2 Saturation ABG Base Excess ABG Hemoglobin Oxyhemoglobin Sodium 136 L Potassium Chloride 93.4 L Carbon Dioxide BUN 20 H Creatinine 0.5 L Glucose 101 H POC Glucose 133 H Lactic Acid Calcium 10.8 H Ionized Calcium Phosphorus Magnesium Total Bilirubin AST ALT Alkaline Phosphatase Ammonia Total Creatine Kinase CK-MB (CK-2) CK-MB (CK-2) Rel Index Total Protein Albumin Urine WBC (Auto) Vancomycin Trough Salicylates Acetaminophen Plasma/Serum Alcohol Crossmatch 02/03/20 02/04/20 02/04/20 23:19 05:37 23:56 WBC RBC Hgb Hct MCH RDW Plt Count Lymph % (Auto) [facility] % (Auto) [facility] # Baso # Seg Neutrophils % Seg Neuts % (Manual) Lymphocytes % (Manual) Monocytes % (Manual) Seg Neutrophils # Seg Neutrophils # Man Lymphocytes # (Manual) Monocytes # (Manual) Eosinophils # (Manual) Basophils # (Manual) PT INR APTT ABG pH ABG pO2 ABG HCO3 ABG O2 Saturation ABG Base Excess ABG Hemoglobin Oxyhemoglobin Sodium Potassium Chloride Carbon Dioxide BUN Creatinine Glucose POC Glucose 135 H 108 H 158 H Lactic Acid Calcium Ionized Calcium Phosphorus Magnesium Total Bilirubin AST ALT Alkaline Phosphatase Ammonia Total Creatine Kinase CK-MB (CK-2) CK-MB (CK-2) Rel Index Total Protein Albumin Urine WBC (Auto) Vancomycin Trough Salicylates Acetaminophen Plasma/Serum Alcohol Crossmatch 02/05/20 02/05/20 02/06/20 05:33 23:24 05:50 WBC RBC Hgb Hct MCH RDW Plt Count Lymph % (Auto) [facility] % (Auto) [facility] # Baso # Seg Neutrophils % Seg Neuts % (Manual) Lymphocytes % (Manual) Monocytes % (Manual) Seg Neutrophils # Seg Neutrophils # Man Lymphocytes # (Manual) Monocytes # (Manual) Eosinophils # (Manual) Basophils # (Manual) PT INR APTT ABG pH ABG pO2 ABG HCO3 ABG O2 Saturation ABG Base Excess ABG Hemoglobin Oxyhemoglobin Sodium Potassium Chloride Carbon Dioxide BUN Creatinine Glucose POC Glucose 152 H 158 H 110 H Lactic Acid Calcium Ionized Calcium Phosphorus Magnesium Total Bilirubin AST ALT Alkaline Phosphatase Ammonia Total Creatine Kinase CK-MB (CK-2) CK-MB (CK-2) Rel Index Total Protein Albumin Urine WBC (Auto) Vancomycin Trough Salicylates Acetaminophen Plasma/Serum Alcohol Crossmatch 02/06/20 02/07/20 02/07/20 16:03 00:13 05:27 WBC RBC Hgb Hct MCH RDW Plt Count Lymph % (Auto) [facility] % (Auto) [facility] # Baso # Seg Neutrophils % Seg Neuts % (Manual) Lymphocytes % (Manual) Monocytes % (Manual) Seg Neutrophils # Seg Neutrophils # Man Lymphocytes # (Manual) Monocytes # (Manual) Eosinophils # (Manual) Basophils # (Manual) PT INR APTT ABG pH ABG pO2 ABG HCO3 ABG O2 Saturation ABG Base Excess ABG Hemoglobin Oxyhemoglobin Sodium Potassium Chloride Carbon Dioxide BUN Creatinine Glucose POC Glucose 130 H 115 H 115 H Lactic Acid Calcium Ionized Calcium Phosphorus Magnesium Total Bilirubin AST ALT Alkaline Phosphatase Ammonia Total Creatine Kinase CK-MB (CK-2) CK-MB (CK-2) Rel Index Total Protein Albumin Urine WBC (Auto) Vancomycin Trough Salicylates Acetaminophen Plasma/Serum Alcohol Crossmatch 02/07/20 02/07/20 02/08/20 11:42 17:23 00:37 WBC RBC Hgb Hct MCH RDW Plt Count Lymph % (Auto) [facility] % (Auto) [facility] # Baso # Seg Neutrophils % Seg Neuts % (Manual) Lymphocytes % (Manual) Monocytes % (Manual) Seg Neutrophils # Seg Neutrophils # Man Lymphocytes # (Manual) Monocytes # (Manual) Eosinophils # (Manual) Basophils # (Manual) PT INR APTT ABG pH ABG pO2 ABG HCO3 ABG O2 Saturation ABG Base Excess ABG Hemoglobin Oxyhemoglobin Sodium Potassium Chloride Carbon Dioxide BUN Creatinine Glucose POC Glucose 113 H 114 H 136 H Lactic Acid Calcium Ionized Calcium Phosphorus Magnesium Total Bilirubin AST ALT Alkaline Phosphatase Ammonia Total Creatine Kinase CK-MB (CK-2) CK-MB (CK-2) Rel Index Total Protein Albumin Urine WBC (Auto) Vancomycin Trough Salicylates Acetaminophen Plasma/Serum Alcohol Crossmatch 02/08/20 02/08/20 02/08/20 08:52 11:42 17:02 WBC RBC Hgb Hct MCH RDW Plt Count Lymph % (Auto) [facility] % (Auto) [facility] # Baso # Seg Neutrophils % Seg Neuts % (Manual) Lymphocytes % (Manual) Monocytes % (Manual) Seg Neutrophils # Seg Neutrophils # Man Lymphocytes # (Manual) Monocytes # (Manual) Eosinophils # (Manual) Basophils # (Manual) PT INR APTT ABG pH ABG pO2 ABG HCO3 ABG O2 Saturation ABG Base Excess ABG Hemoglobin Oxyhemoglobin Sodium 136 L Potassium Chloride 95.7 L Carbon Dioxide BUN 21 H Creatinine 0.4 L Glucose POC Glucose 128 H 145 H Lactic Acid Calcium 10.4 H Ionized Calcium Phosphorus Magnesium Total Bilirubin AST ALT Alkaline Phosphatase Ammonia Total Creatine Kinase CK-MB (CK-2) CK-MB (CK-2) Rel Index Total Protein Albumin Urine WBC (Auto) Vancomycin Trough Salicylates Acetaminophen Plasma/Serum Alcohol Crossmatch 02/09/20 02/09/20 02/09/20 01:05 11:52 16:19 WBC RBC Hgb Hct MCH RDW Plt Count Lymph % (Auto) [facility] % (Auto) [facility] # Baso # Seg Neutrophils % Seg Neuts % (Manual) Lymphocytes % (Manual) Monocytes % (Manual) Seg Neutrophils # Seg Neutrophils # Man Lymphocytes # (Manual) Monocytes # (Manual) Eosinophils # (Manual) Basophils # (Manual) PT INR APTT ABG pH ABG pO2 ABG HCO3 ABG O2 Saturation ABG Base Excess ABG Hemoglobin Oxyhemoglobin Sodium Potassium Chloride Carbon Dioxide BUN Creatinine Glucose POC Glucose 117 H 141 H 113 H Lactic Acid Calcium Ionized Calcium Phosphorus Magnesium Total Bilirubin AST ALT Alkaline Phosphatase Ammonia Total Creatine Kinase CK-MB (CK-2) CK-MB (CK-2) Rel Index Total Protein Albumin Urine WBC (Auto) Vancomycin Trough Salicylates Acetaminophen Plasma/Serum Alcohol Crossmatch 02/10/20 02/10/20 02/10/20 05:25 12:50 17:08 WBC RBC Hgb Hct MCH RDW Plt Count Lymph % (Auto) [facility] % (Auto) [facility] # Baso # Seg Neutrophils % Seg Neuts % (Manual) Lymphocytes % (Manual) Monocytes % (Manual) Seg Neutrophils # Seg Neutrophils # Man Lymphocytes # (Manual) Monocytes # (Manual) Eosinophils # (Manual) Basophils # (Manual) PT INR APTT ABG pH ABG pO2 ABG HCO3 ABG O2 Saturation ABG Base Excess ABG Hemoglobin Oxyhemoglobin Sodium Potassium Chloride Carbon Dioxide BUN Creatinine Glucose POC Glucose 136 H 127 H 111 H Lactic Acid Calcium Ionized Calcium Phosphorus Magnesium Total Bilirubin AST ALT Alkaline Phosphatase Ammonia Total Creatine Kinase CK-MB (CK-2) CK-MB (CK-2) Rel Index Total Protein Albumin Urine WBC (Auto) Vancomycin Trough Salicylates Acetaminophen Plasma/Serum Alcohol Crossmatch 02/10/20 02/11/20 02/11/20 23:55 06:11 12:07 WBC RBC Hgb Hct MCH RDW Plt Count Lymph % (Auto) [facility] % (Auto) [facility] # Baso # Seg Neutrophils % Seg Neuts % (Manual) Lymphocytes % (Manual) Monocytes % (Manual) Seg Neutrophils # Seg Neutrophils # Man Lymphocytes # (Manual) Monocytes # (Manual) Eosinophils # (Manual) Basophils # (Manual) PT INR APTT ABG pH ABG pO2 ABG HCO3 ABG O2 Saturation ABG Base Excess ABG Hemoglobin Oxyhemoglobin Sodium Potassium Chloride Carbon Dioxide BUN Creatinine Glucose POC Glucose 129 H 128 H 141 H Lactic Acid Calcium Ionized Calcium Phosphorus Magnesium Total Bilirubin AST ALT Alkaline Phosphatase Ammonia Total Creatine Kinase CK-MB (CK-2) CK-MB (CK-2) Rel Index Total Protein Albumin Urine WBC (Auto) Vancomycin Trough Salicylates Acetaminophen Plasma/Serum Alcohol Crossmatch 02/11/20 02/12/20 02/13/20 18:22 02:39 06:45 WBC RBC Hgb Hct MCH RDW Plt Count Lymph % (Auto) [facility] % (Auto) [facility] # Baso # Seg Neutrophils % Seg Neuts % (Manual) Lymphocytes % (Manual) Monocytes % (Manual) Seg Neutrophils # Seg Neutrophils # Man Lymphocytes # (Manual) Monocytes # (Manual) Eosinophils # (Manual) Basophils # (Manual) PT INR APTT ABG pH ABG pO2 ABG HCO3 ABG O2 Saturation ABG Base Excess ABG Hemoglobin Oxyhemoglobin Sodium Potassium Chloride Carbon Dioxide BUN Creatinine Glucose POC Glucose 118 H 107 H 124 H Lactic Acid Calcium Ionized Calcium Phosphorus Magnesium Total Bilirubin AST ALT Alkaline Phosphatase Ammonia Total Creatine Kinase CK-MB (CK-2) CK-MB (CK-2) Rel Index Total Protein Albumin Urine WBC (Auto) Vancomycin Trough Salicylates Acetaminophen Plasma/Serum Alcohol Crossmatch 02/13/20 02/13/20 02/14/20 12:26 18:19 00:21 WBC RBC Hgb Hct MCH RDW Plt Count Lymph % (Auto) [facility] % (Auto) [facility] # Baso # Seg Neutrophils % Seg Neuts % (Manual) Lymphocytes % (Manual) Monocytes % (Manual) Seg Neutrophils # Seg Neutrophils # Man Lymphocytes # (Manual) Monocytes # (Manual) Eosinophils # (Manual) Basophils # (Manual) PT INR APTT ABG pH ABG pO2 ABG HCO3 ABG O2 Saturation ABG Base Excess ABG Hemoglobin Oxyhemoglobin Sodium Potassium Chloride Carbon Dioxide BUN Creatinine Glucose POC Glucose 124 H 118 H 130 H Lactic Acid Calcium Ionized Calcium Phosphorus Magnesium Total Bilirubin AST ALT Alkaline Phosphatase Ammonia Total Creatine Kinase CK-MB (CK-2) CK-MB (CK-2) Rel Index Total Protein Albumin Urine WBC (Auto) Vancomycin Trough Salicylates Acetaminophen Plasma/Serum Alcohol Crossmatch 02/14/20 02/14/20 02/16/20 11:19 16:16 00:58 WBC RBC Hgb Hct MCH RDW Plt Count Lymph % (Auto) [facility] % (Auto) [facility] # Baso # Seg Neutrophils % Seg Neuts % (Manual) Lymphocytes % (Manual) Monocytes % (Manual) Seg Neutrophils # Seg Neutrophils # Man Lymphocytes # (Manual) Monocytes # (Manual) Eosinophils # (Manual) Basophils # (Manual) PT INR APTT ABG pH ABG pO2 ABG HCO3 ABG O2 Saturation ABG Base Excess ABG Hemoglobin Oxyhemoglobin Sodium Potassium Chloride Carbon Dioxide BUN Creatinine Glucose POC Glucose 135 H 119 H 121 H Lactic Acid Calcium Ionized Calcium Phosphorus Magnesium Total Bilirubin AST ALT Alkaline Phosphatase Ammonia Total Creatine Kinase CK-MB (CK-2) CK-MB (CK-2) Rel Index Total Protein Albumin Urine WBC (Auto) Vancomycin Trough Salicylates Acetaminophen Plasma/Serum Alcohol Crossmatch 02/16/20 02/16/20 02/16/20 12:12 18:22 23:51 WBC RBC Hgb Hct MCH RDW Plt Count Lymph % (Auto) [facility] % (Auto) [facility] # Baso # Seg Neutrophils % Seg Neuts % (Manual) Lymphocytes % (Manual) Monocytes % (Manual) Seg Neutrophils # Seg Neutrophils # Man Lymphocytes # (Manual) Monocytes # (Manual) Eosinophils # (Manual) Basophils # (Manual) PT INR APTT ABG pH ABG pO2 ABG HCO3 ABG O2 Saturation ABG Base Excess ABG Hemoglobin Oxyhemoglobin Sodium Potassium Chloride Carbon Dioxide BUN Creatinine Glucose POC Glucose 107 H 106 H 128 H Lactic Acid Calcium Ionized Calcium Phosphorus Magnesium Total Bilirubin AST ALT Alkaline Phosphatase Ammonia Total Creatine Kinase CK-MB (CK-2) CK-MB (CK-2) Rel Index Total Protein Albumin Urine WBC (Auto) Vancomycin Trough Salicylates Acetaminophen Plasma/Serum Alcohol Crossmatch 02/17/20 02/17/20 02/17/20 05:50 07:57 07:57 WBC 12.6 H RBC 3.52 L Hgb Hct MCH RDW 15.3 H Plt Count 643 H Lymph % (Auto) [facility] % (Auto) 8.0 H [facility] # 1.0 H Baso # Seg Neutrophils % Seg Neuts % (Manual) Lymphocytes % (Manual) Monocytes % (Manual) Seg Neutrophils # 8.5 H Seg Neutrophils # Man Lymphocytes # (Manual) Monocytes # (Manual) Eosinophils # (Manual) Basophils # (Manual) PT INR APTT ABG pH ABG pO2 ABG HCO3 ABG O2 Saturation ABG Base Excess ABG Hemoglobin Oxyhemoglobin Sodium Potassium Chloride 96.9 L Carbon Dioxide BUN 21 H Creatinine 0.4 L Glucose 113 H POC Glucose 116 H Lactic Acid Calcium 10.5 H Ionized Calcium Phosphorus Magnesium Total Bilirubin AST ALT Alkaline Phosphatase Ammonia Total Creatine Kinase CK-MB (CK-2) CK-MB (CK-2) Rel Index Total Protein Albumin Urine WBC (Auto) Vancomycin Trough Salicylates Acetaminophen Plasma/Serum Alcohol Crossmatch 02/17/20 02/17/20 02/18/20 12:05 18:16 00:13 WBC RBC Hgb Hct MCH RDW Plt Count Lymph % (Auto) [facility] % (Auto) [facility] # Baso # Seg Neutrophils % Seg Neuts % (Manual) Lymphocytes % (Manual) Monocytes % (Manual) Seg Neutrophils # Seg Neutrophils # Man Lymphocytes # (Manual) Monocytes # (Manual) Eosinophils # (Manual) Basophils # (Manual) PT INR APTT ABG pH ABG pO2 ABG HCO3 ABG O2 Saturation ABG Base Excess ABG Hemoglobin Oxyhemoglobin Sodium Potassium Chloride Carbon Dioxide BUN Creatinine Glucose POC Glucose 139 H 127 H 144 H Lactic Acid Calcium Ionized Calcium Phosphorus Magnesium Total Bilirubin AST ALT Alkaline Phosphatase Ammonia Total Creatine Kinase CK-MB (CK-2) CK-MB (CK-2) Rel Index Total Protein Albumin Urine WBC (Auto) Vancomycin Trough Salicylates Acetaminophen Plasma/Serum Alcohol Crossmatch 02/18/20 02/18/20 02/19/20 17:41 23:28 05:17 WBC RBC Hgb Hct MCH RDW Plt Count Lymph % (Auto) [facility] % (Auto) [facility] # Baso # Seg Neutrophils % Seg Neuts % (Manual) Lymphocytes % (Manual) Monocytes % (Manual) Seg Neutrophils # Seg Neutrophils # Man Lymphocytes # (Manual) Monocytes # (Manual) Eosinophils # (Manual) Basophils # (Manual) PT INR APTT ABG pH ABG pO2 ABG HCO3 ABG O2 Saturation ABG Base Excess ABG Hemoglobin Oxyhemoglobin Sodium Potassium Chloride Carbon Dioxide BUN Creatinine Glucose POC Glucose 118 H 166 H 116 H Lactic Acid Calcium Ionized Calcium Phosphorus Magnesium Total Bilirubin AST ALT Alkaline Phosphatase Ammonia Total Creatine Kinase CK-MB (CK-2) CK-MB (CK-2) Rel Index Total Protein Albumin Urine WBC (Auto) Vancomycin Trough Salicylates Acetaminophen Plasma/Serum Alcohol Crossmatch 02/19/20 02/19/20 02/20/20 12:33 17:02 00:12 WBC RBC Hgb Hct MCH RDW Plt Count Lymph % (Auto) [facility] % (Auto) [facility] # Baso # Seg Neutrophils % Seg Neuts % (Manual) Lymphocytes % (Manual) Monocytes % (Manual) Seg Neutrophils # Seg Neutrophils # Man Lymphocytes # (Manual) Monocytes # (Manual) Eosinophils # (Manual) Basophils # (Manual) PT INR APTT ABG pH ABG pO2 ABG HCO3 ABG O2 Saturation ABG Base Excess ABG Hemoglobin Oxyhemoglobin Sodium Potassium Chloride Carbon Dioxide BUN Creatinine Glucose POC Glucose 115 H 108 H 153 H Lactic Acid Calcium Ionized Calcium Phosphorus Magnesium Total Bilirubin AST ALT Alkaline Phosphatase Ammonia Total Creatine Kinase CK-MB (CK-2) CK-MB (CK-2) Rel Index Total Protein Albumin Urine WBC (Auto) Vancomycin Trough Salicylates Acetaminophen Plasma/Serum Alcohol Crossmatch 02/20/20 02/20/20 02/21/20 12:00 23:13 05:07 WBC RBC Hgb Hct MCH RDW Plt Count Lymph % (Auto) [facility] % (Auto) [facility] # Baso # Seg Neutrophils % Seg Neuts % (Manual) Lymphocytes % (Manual) Monocytes % (Manual) Seg Neutrophils # Seg Neutrophils # Man Lymphocytes # (Manual) Monocytes # (Manual) Eosinophils # (Manual) Basophils # (Manual) PT INR APTT ABG pH ABG pO2 ABG HCO3 ABG O2 Saturation ABG Base Excess ABG Hemoglobin Oxyhemoglobin Sodium Potassium Chloride Carbon Dioxide BUN Creatinine Glucose POC Glucose 171 H 129 H 116 H Lactic Acid Calcium Ionized Calcium Phosphorus Magnesium Total Bilirubin AST ALT Alkaline Phosphatase Ammonia Total Creatine Kinase CK-MB (CK-2) CK-MB (CK-2) Rel Index Total Protein Albumin Urine WBC (Auto) Vancomycin Trough Salicylates Acetaminophen Plasma/Serum Alcohol Crossmatch 02/21/20 02/22/20 02/22/20 12:15 00:42 06:30 WBC RBC Hgb Hct MCH RDW Plt Count Lymph % (Auto) [facility] % (Auto) [facility] # Baso # Seg Neutrophils % Seg Neuts % (Manual) Lymphocytes % (Manual) Monocytes % (Manual) Seg Neutrophils # Seg Neutrophils # Man Lymphocytes # (Manual) Monocytes # (Manual) Eosinophils # (Manual) Basophils # (Manual) PT INR APTT ABG pH ABG pO2 ABG HCO3 ABG O2 Saturation ABG Base Excess ABG Hemoglobin Oxyhemoglobin Sodium Potassium Chloride Carbon Dioxide BUN Creatinine Glucose POC Glucose 124 H 142 H 117 H Lactic Acid Calcium Ionized Calcium Phosphorus Magnesium Total Bilirubin AST ALT Alkaline Phosphatase Ammonia Total Creatine Kinase CK-MB (CK-2) CK-MB (CK-2) Rel Index Total Protein Albumin Urine WBC (Auto) Vancomycin Trough Salicylates Acetaminophen Plasma/Serum Alcohol Crossmatch 02/22/20 02/22/20 02/23/20 12:20 17:55 12:46 WBC RBC Hgb Hct MCH RDW Plt Count Lymph % (Auto) [facility] % (Auto) [facility] # Baso # Seg Neutrophils % Seg Neuts % (Manual) Lymphocytes % (Manual) Monocytes % (Manual) Seg Neutrophils # Seg Neutrophils # Man Lymphocytes # (Manual) Monocytes # (Manual) Eosinophils # (Manual) Basophils # (Manual) PT INR APTT ABG pH ABG pO2 ABG HCO3 ABG O2 Saturation ABG Base Excess ABG Hemoglobin Oxyhemoglobin Sodium Potassium Chloride Carbon Dioxide BUN Creatinine Glucose POC Glucose 121 H 157 H 112 H Lactic Acid Calcium Ionized Calcium Phosphorus Magnesium Total Bilirubin AST ALT Alkaline Phosphatase Ammonia Total Creatine Kinase CK-MB (CK-2) CK-MB (CK-2) Rel Index Total Protein Albumin Urine WBC (Auto) Vancomycin Trough Salicylates Acetaminophen Plasma/Serum Alcohol Crossmatch 02/23/20 02/24/20 02/24/20 16:47 00:38 07:00 WBC RBC Hgb Hct MCH RDW Plt Count Lymph % (Auto) [facility] % (Auto) [facility] # Baso # Seg Neutrophils % Seg Neuts % (Manual) Lymphocytes % (Manual) Monocytes % (Manual) Seg Neutrophils # Seg Neutrophils # Man Lymphocytes # (Manual) Monocytes # (Manual) Eosinophils # (Manual) Basophils # (Manual) PT INR APTT ABG pH ABG pO2 ABG HCO3 ABG O2 Saturation ABG Base Excess ABG Hemoglobin Oxyhemoglobin Sodium Potassium Chloride Carbon Dioxide BUN Creatinine Glucose POC Glucose 142 H 138 H 118 H Lactic Acid Calcium Ionized Calcium Phosphorus Magnesium Total Bilirubin AST ALT Alkaline Phosphatase Ammonia Total Creatine Kinase CK-MB (CK-2) CK-MB (CK-2) Rel Index Total Protein Albumin Urine WBC (Auto) Vancomycin Trough Salicylates Acetaminophen Plasma/Serum Alcohol Crossmatch 02/24/20 02/24/20 02/25/20 11:41 18:33 18:24 WBC RBC Hgb Hct MCH RDW Plt Count Lymph % (Auto) [facility] % (Auto) [facility] # Baso # Seg Neutrophils % Seg Neuts % (Manual) Lymphocytes % (Manual) Monocytes % (Manual) Seg Neutrophils # Seg Neutrophils # Man Lymphocytes # (Manual) Monocytes # (Manual) Eosinophils # (Manual) Basophils # (Manual) PT INR APTT ABG pH ABG pO2 ABG HCO3 ABG O2 Saturation ABG Base Excess ABG Hemoglobin Oxyhemoglobin Sodium Potassium Chloride Carbon Dioxide BUN Creatinine Glucose POC Glucose 152 H 126 H 120 H Lactic Acid Calcium Ionized Calcium Phosphorus Magnesium Total Bilirubin AST ALT Alkaline Phosphatase Ammonia Total Creatine Kinase CK-MB (CK-2) CK-MB (CK-2) Rel Index Total Protein Albumin Urine WBC (Auto) Vancomycin Trough Salicylates Acetaminophen Plasma/Serum Alcohol Crossmatch 02/25/20 02/26/20 02/26/20 23:40 05:46 11:32 WBC RBC Hgb Hct MCH RDW Plt Count Lymph % (Auto) [facility] % (Auto) [facility] # Baso # Seg Neutrophils % Seg Neuts % (Manual) Lymphocytes % (Manual) Monocytes % (Manual) Seg Neutrophils # Seg Neutrophils # Man Lymphocytes # (Manual) Monocytes # (Manual) Eosinophils # (Manual) Basophils # (Manual) PT INR APTT ABG pH ABG pO2 ABG HCO3 ABG O2 Saturation ABG Base Excess ABG Hemoglobin Oxyhemoglobin Sodium Potassium Chloride Carbon Dioxide BUN Creatinine Glucose POC Glucose 114 H 113 H 106 H Lactic Acid Calcium Ionized Calcium Phosphorus Magnesium Total Bilirubin AST ALT Alkaline Phosphatase Ammonia Total Creatine Kinase CK-MB (CK-2) CK-MB (CK-2) Rel Index Total Protein Albumin Urine WBC (Auto) Vancomycin Trough Salicylates Acetaminophen Plasma/Serum Alcohol Crossmatch 02/26/20 02/27/20 02/27/20 16:14 11:53 17:54 WBC RBC Hgb Hct MCH RDW Plt Count Lymph % (Auto) [facility] % (Auto) [facility] # Baso # Seg Neutrophils % Seg Neuts % (Manual) Lymphocytes % (Manual) Monocytes % (Manual) Seg Neutrophils # Seg Neutrophils # Man Lymphocytes # (Manual) Monocytes # (Manual) Eosinophils # (Manual) Basophils # (Manual) PT INR APTT ABG pH ABG pO2 ABG HCO3 ABG O2 Saturation ABG Base Excess ABG Hemoglobin Oxyhemoglobin Sodium Potassium Chloride Carbon Dioxide BUN Creatinine Glucose POC Glucose 123 H 134 H 119 H Lactic Acid Calcium Ionized Calcium Phosphorus Magnesium Total Bilirubin AST ALT Alkaline Phosphatase Ammonia Total Creatine Kinase CK-MB (CK-2) CK-MB (CK-2) Rel Index Total Protein Albumin Urine WBC (Auto) Vancomycin Trough Salicylates Acetaminophen Plasma/Serum Alcohol Crossmatch 02/27/20 02/28/20 02/28/20 23:51 03:40 03:40 WBC RBC 3.58 L Hgb Hct MCH RDW Plt Count 575 H Lymph % (Auto) [facility] % (Auto) 9.4 H [facility] # 1.0 H Baso # Seg Neutrophils % Seg Neuts % (Manual) Lymphocytes % (Manual) Monocytes % (Manual) Seg Neutrophils # Seg Neutrophils # Man Lymphocytes # (Manual) Monocytes # (Manual) Eosinophils # (Manual) Basophils # (Manual) PT INR APTT ABG pH ABG pO2 ABG HCO3 ABG O2 Saturation ABG Base Excess ABG Hemoglobin Oxyhemoglobin Sodium Potassium Chloride Carbon Dioxide BUN 23 H Creatinine 0.5 L Glucose 114 H POC Glucose 138 H Lactic Acid Calcium Ionized Calcium Phosphorus Magnesium Total Bilirubin AST ALT Alkaline Phosphatase Ammonia Total Creatine Kinase CK-MB (CK-2) CK-MB (CK-2) Rel Index Total Protein Albumin Urine WBC (Auto) Vancomycin Trough Salicylates Acetaminophen Plasma/Serum Alcohol Crossmatch 02/28/20 02/28/20 02/29/20 12:37 18:38 05:50 WBC RBC Hgb Hct MCH RDW Plt Count Lymph % (Auto) [facility] % (Auto) [facility] # Baso # Seg Neutrophils % Seg Neuts % (Manual) Lymphocytes % (Manual) Monocytes % (Manual) Seg Neutrophils # Seg Neutrophils # Man Lymphocytes # (Manual) Monocytes # (Manual) Eosinophils # (Manual) Basophils # (Manual) PT INR APTT ABG pH ABG pO2 ABG HCO3 ABG O2 Saturation ABG Base Excess ABG Hemoglobin Oxyhemoglobin Sodium Potassium Chloride Carbon Dioxide BUN Creatinine Glucose POC Glucose 115 H 120 H 114 H Lactic Acid Calcium Ionized Calcium Phosphorus Magnesium Total Bilirubin AST ALT Alkaline Phosphatase Ammonia Total Creatine Kinase CK-MB (CK-2) CK-MB (CK-2) Rel Index Total Protein Albumin Urine WBC (Auto) Vancomycin Trough Salicylates Acetaminophen Plasma/Serum Alcohol Crossmatch 02/29/20 02/29/20 03/01/20 18:53 23:10 06:53 WBC RBC Hgb Hct MCH RDW Plt Count Lymph % (Auto) [facility] % (Auto) [facility] # Baso # Seg Neutrophils % Seg Neuts % (Manual) Lymphocytes % (Manual) Monocytes % (Manual) Seg Neutrophils # Seg Neutrophils # Man Lymphocytes # (Manual) Monocytes # (Manual) Eosinophils # (Manual) Basophils # (Manual) PT INR APTT ABG pH ABG pO2 ABG HCO3 ABG O2 Saturation ABG Base Excess ABG Hemoglobin Oxyhemoglobin Sodium Potassium Chloride Carbon Dioxide BUN Creatinine Glucose POC Glucose 112 H 147 H 131 H Lactic Acid Calcium Ionized Calcium Phosphorus Magnesium Total Bilirubin AST ALT Alkaline Phosphatase Ammonia Total Creatine Kinase CK-MB (CK-2) CK-MB (CK-2) Rel Index Total Protein Albumin Urine WBC (Auto) Vancomycin Trough Salicylates Acetaminophen Plasma/Serum Alcohol Crossmatch 03/01/20 03/01/20 03/02/20 17:31 18:35 00:10 WBC RBC Hgb Hct MCH RDW Plt Count Lymph % (Auto) [facility] % (Auto) [facility] # Baso # Seg Neutrophils % Seg Neuts % (Manual) Lymphocytes % (Manual) Monocytes % (Manual) Seg Neutrophils # Seg Neutrophils # Man Lymphocytes # (Manual) Monocytes # (Manual) Eosinophils # (Manual) Basophils # (Manual) PT INR APTT ABG pH ABG pO2 ABG HCO3 ABG O2 Saturation ABG Base Excess ABG Hemoglobin Oxyhemoglobin Sodium Potassium Chloride Carbon Dioxide BUN Creatinine Glucose POC Glucose 61 L 129 H 117 H Lactic Acid Calcium Ionized Calcium Phosphorus Magnesium Total Bilirubin AST ALT Alkaline Phosphatase Ammonia Total Creatine Kinase CK-MB (CK-2) CK-MB (CK-2) Rel Index Total Protein Albumin Urine WBC (Auto) Vancomycin Trough Salicylates Acetaminophen Plasma/Serum Alcohol Crossmatch 03/02/20 03/02/20 06:56 12:02 WBC RBC Hgb Hct MCH RDW Plt Count Lymph % (Auto) [facility] % (Auto) [facility] # Baso # Seg Neutrophils % Seg Neuts % (Manual) Lymphocytes % (Manual) Monocytes % (Manual) Seg Neutrophils # Seg Neutrophils # Man Lymphocytes # (Manual) Monocytes # (Manual) Eosinophils # (Manual) Basophils # (Manual) PT INR APTT ABG pH ABG pO2 ABG HCO3 ABG O2 Saturation ABG Base Excess ABG Hemoglobin Oxyhemoglobin Sodium Potassium Chloride Carbon Dioxide BUN Creatinine Glucose POC Glucose 125 H 111 H Lactic Acid Calcium Ionized Calcium Phosphorus Magnesium Total Bilirubin AST ALT Alkaline Phosphatase Ammonia Total Creatine Kinase CK-MB (CK-2) CK-MB (CK-2) Rel Index Total Protein Albumin Urine WBC (Auto) Vancomycin Trough Salicylates Acetaminophen Plasma/Serum Alcohol Crossmatch Allied health notes reviewed: RT
[2020-03-02] MEDS: QUEtiapine 100 MG TAB FEEDTUBE SCH (22:20)
[2020-03-03] MEDS: LEVALBUTEROL 0.63 MG/3 ML NEBU IH SCH ×4 (02:34→21:39)
[2020-03-03] MEDS: hydrALAZINE 20 MG/1 ML INJ IV PRN (05:57)
--- NOTE | 2020-03-03 08:19 | Progress Note ---
Assessment and Plan Patient awake. .Patient S/P trach. Patient is presently on room air.O2 saturation 100%. No acute respiratory distress. Patient is agitating. Wound around trach tube. Recommend cleaning and tracheostomy care. Dressing applied.Recommend frequent respiratory suctioning. Continue bronchodilators.Patient afebrile and has mild leukocytosis. - Patient Problems (1) Acute respiratory failure Current Visit: Yes Status: Acute Qualifiers: Respiratory failure complication: hypoxia Qualified Code(s): J96.01 - Acute respiratory failure with hypoxia Plan to address problem: S/P Tracheostomy. Presently on room air. O2 saturation 100%. Recommend albuterol/atrovent aerosol treatments q 6 hours. Continue Mucomist. Respiratory suctioning. Trach care. Mobility protocol. (2) Alcohol abuse Current Visit: Yes Status: Acute Plan to address problem: Management as per primary care. (3) Cardiac arrest with successful resuscitation Current Visit: Yes Status: Acute Plan to address problem: Patient successfully resucitated. Alert, awake. On room air. O2 saturation 100%. (4) Increased ammonia level Current Visit: Yes Status: Acute Plan to address problem: Management as per primary care. (5) Seizure disorder Current Visit: Yes Status: Acute Plan to address problem: Management as per primary care and neurology. (6) HTN (hypertension) Current Visit: No Status: Acute Plan to address problem: Management as per primary care. Subjective Date of service: 03/03/20 Principal diagnosis: Ac cardiopulmonary arrest; Ac hypoxemic resp failure; Acute encephalopathy Interval history: Patient awake. .Patient S/P trach. Patient is presently on room air.O2 saturation 100%. No acute respiratory distress. Patient is agitating. Wound around trach tube. Recommend cleaning and tracheostomy care. Dressing applied.Recommend frequent respiratory suctioning. Continue bronchodilators.Patient afebrile and has mild leukocytosis. Objective Vital Signs - 12hr 03/02/20 03/02/20 03/02/20 22:08 22:09 22:20 Temperature Pulse Rate 102 H Pulse Rate [ 109 H Anterior Bilateral Throughout] Respiratory Rate Respiratory 20 Rate [Anterior Bilateral Throughout] Blood Pressure 119/85 O2 Sat by Pulse 100 Oximetry O2 Sat by Pulse Oximetry [ Assessment] 03/03/20 03/03/20 03/03/20 00:04 00:24 04:07 Temperature 98.2 F 98.4 F Pulse Rate 90 89 Pulse Rate [ Anterior Bilateral Throughout] Respiratory 18 18 Rate Respiratory Rate [Anterior Bilateral Throughout] Blood Pressure 123/85 168/95 O2 Sat by Pulse 100 100 Oximetry O2 Sat by Pulse 98 Oximetry [ Assessment] 03/03/20 05:57 Temperature Pulse Rate 94 H Pulse Rate [ Anterior Bilateral Throughout] Respiratory Rate Respiratory Rate [Anterior Bilateral Throughout] Blood Pressure 168/95 O2 Sat by Pulse Oximetry O2 Sat by Pulse Oximetry [ Assessment] Constitutional: no acute distress, alert, other (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, with midline tracheostomy and with normal respiratory effort at rest) Eyes: non-icteric ENT: oropharynx moist, other (s/p trach) Neck: supple, no lymphadenopathy, no JVD Effort: normal Ascultation: Bilateral: diminished breath sounds, rhonchi Percussion: Bilateral: not dull Cardiovascular: regular rate and rhythm (tachycardia), other (S1,S2) Gastrointestinal: normoactive bowel sounds, soft, non-tender, non-distended Integumentary: normal Extremities: no cyanosis, no edema, pulses normal, no ischemia or petechiae Neurologic: normal mental status, non-focal exam, pupils equal and round Psychiatric: mood appropriate, affect normal CBC and BMP: 02/28/20 03:40 02/28/20 03:40 ABG, PT/INR, D-dimer: ABG ABG pH 7.429 pH Units (7.350-7.450) 01/09/20 08:51 ABG pCO2 39.1 mm Hg 01/09/20 08:51 ABG pO2 94.3 mm Hg (80.0-90.0) H 01/09/20 08:51 ABG O2 Saturation 97.4 % (95.0-99.0) 01/09/20 08:51 PT/INR, D-dimer PT 17.0 Sec. (12.2-14.9) H 11/23/19 03:47 INR 1.36 (0.87-1.13) H 11/23/19 03:47 Abnormal lab findings: Abnormal Labs 11/22/19 11/22/19 11/22/19 23:17 23:18 23:27 WBC 21.2 H RBC 3.59 L Hgb 9.8 L Hct MCH 27 L RDW 18.6 H Plt Count 454 H Lymph % (Auto) [place] % (Auto) [place] # Baso # Seg Neutrophils % Seg Neuts % (Manual) 86.0 H Lymphocytes % (Manual) 9.0 L Monocytes % (Manual) Seg Neutrophils # Seg Neutrophils # Man 18.2 H Lymphocytes # (Manual) Monocytes # (Manual) 1.1 H Eosinophils # (Manual) Basophils # (Manual) PT INR APTT ABG pH ABG pO2 ABG HCO3 ABG O2 Saturation ABG Base Excess ABG Hemoglobin Oxyhemoglobin Sodium Potassium Chloride Carbon Dioxide BUN Creatinine Glucose POC Glucose 53 L Lactic Acid Calcium Ionized Calcium Phosphorus Magnesium Total Bilirubin AST ALT Alkaline Phosphatase Ammonia Total Creatine Kinase CK-MB (CK-2) CK-MB (CK-2) Rel Index Total Protein Albumin Urine WBC (Auto) 40.0 H Vancomycin Trough Salicylates Acetaminophen Plasma/Serum Alcohol Crossmatch 11/22/19 11/22/19 11/22/19 23:27 23:27 23:27 WBC RBC Hgb Hct MCH RDW Plt Count Lymph % (Auto) [place] % (Auto) [place] # Baso # Seg Neutrophils % Seg Neuts % (Manual) Lymphocytes % (Manual) Monocytes % (Manual) Seg Neutrophils # Seg Neutrophils # Man Lymphocytes # (Manual) Monocytes # (Manual) Eosinophils # (Manual) Basophils # (Manual) PT INR APTT ABG pH ABG pO2 ABG HCO3 ABG O2 Saturation ABG Base Excess ABG Hemoglobin Oxyhemoglobin Sodium Potassium 2.4 L* Chloride 85.1 L Carbon Dioxide 19 L BUN Creatinine 0.5 L Glucose 261 H POC Glucose Lactic Acid Calcium Ionized Calcium Phosphorus Magnesium Total Bilirubin AST 609 H ALT 152 H Alkaline Phosphatase 160 H Ammonia 117.0 H Total Creatine Kinase 139 H CK-MB (CK-2) 8.3 H CK-MB (CK-2) Rel Index 5.9 H Total Protein Albumin 3.6 L Urine WBC (Auto) Vancomycin Trough Salicylates < 0.3 L Acetaminophen Plasma/Serum Alcohol Crossmatch 11/22/19 11/22/19 11/23/19 23:27 23:27 01:10 WBC RBC Hgb Hct MCH RDW Plt Count Lymph % (Auto) [place] % (Auto) [place] # Baso # Seg Neutrophils % Seg Neuts % (Manual) Lymphocytes % (Manual) Monocytes % (Manual) Seg Neutrophils # Seg Neutrophils # Man Lymphocytes # (Manual) Monocytes # (Manual) Eosinophils # (Manual) Basophils # (Manual) PT INR APTT ABG pH 7.273 L ABG pO2 209.7 H ABG HCO3 ABG O2 Saturation 99.2 H ABG Base Excess -3.9 L ABG Hemoglobin 10.6 L Oxyhemoglobin 93.9 L Sodium Potassium Chloride Carbon Dioxide BUN Creatinine Glucose POC Glucose Lactic Acid Calcium Ionized Calcium Phosphorus Magnesium Total Bilirubin AST ALT Alkaline Phosphatase Ammonia Total Creatine Kinase CK-MB (CK-2) CK-MB (CK-2) Rel Index Total Protein Albumin Urine WBC (Auto) Vancomycin Trough Salicylates Acetaminophen < 5.0 L Plasma/Serum Alcohol 0.08 H Crossmatch 11/23/19 11/23/19 11/23/19 01:19 01:19 03:47 WBC RBC Hgb Hct MCH RDW Plt Count Lymph % (Auto) [place] % (Auto) [place] # Baso # Seg Neutrophils % Seg Neuts % (Manual) Lymphocytes % (Manual) Monocytes % (Manual) Seg Neutrophils # Seg Neutrophils # Man Lymphocytes # (Manual) Monocytes # (Manual) Eosinophils # (Manual) Basophils # (Manual) PT 16.3 H INR 1.29 H APTT ABG pH ABG pO2 ABG HCO3 ABG O2 Saturation ABG Base Excess ABG Hemoglobin Oxyhemoglobin Sodium Potassium Chloride Carbon Dioxide BUN Creatinine Glucose POC Glucose Lactic Acid 2.10 H* 5.00 H* Calcium Ionized Calcium Phosphorus Magnesium Total Bilirubin AST ALT Alkaline Phosphatase Ammonia Total Creatine Kinase CK-MB (CK-2) CK-MB (CK-2) Rel Index Total Protein Albumin Urine WBC (Auto) Vancomycin Trough Salicylates Acetaminophen Plasma/Serum Alcohol Crossmatch 11/23/19 11/23/19 11/23/19 03:47 03:47 04:53 WBC RBC Hgb 9.4 L Hct MCH RDW Plt Count Lymph % (Auto) [place] % (Auto) [place] # Baso # Seg Neutrophils % Seg Neuts % (Manual) Lymphocytes % (Manual) Monocytes % (Manual) Seg Neutrophils # Seg Neutrophils # Man Lymphocytes # (Manual) Monocytes # (Manual) Eosinophils # (Manual) Basophils # (Manual) PT 17.0 H INR 1.36 H APTT 128.2 H* ABG pH ABG pO2 ABG HCO3 ABG O2 Saturation ABG Base Excess ABG Hemoglobin Oxyhemoglobin Sodium Potassium Chloride Carbon Dioxide 18 L BUN Creatinine 0.5 L Glucose 105 H POC Glucose Lactic Acid Calcium 8.3 L Ionized Calcium Phosphorus 2.40 L Magnesium Total Bilirubin 1.30 H AST 761 H ALT 158 H Alkaline Phosphatase 143 H Ammonia Total Creatine Kinase CK-MB (CK-2) CK-MB (CK-2) Rel Index Total Protein Albumin 2.8 L Urine WBC (Auto) Vancomycin Trough Salicylates Acetaminophen Plasma/Serum Alcohol Crossmatch 11/23/19 11/23/19 11/23/19 05:12 06:32 06:32 WBC 16.8 H RBC 3.31 L Hgb 8.9 L Hct 28.7 L MCH 27 L RDW 18.6 H Plt Count Lymph % (Auto) [place] % (Auto) [place] # Baso # Seg Neutrophils % Seg Neuts % (Manual) 94.0 H Lymphocytes % (Manual) 1.0 L Monocytes % (Manual) Seg Neutrophils # Seg Neutrophils # Man 15.8 H Lymphocytes # (Manual) 0.2 L Monocytes # (Manual) Eosinophils # (Manual) Basophils # (Manual) PT INR APTT ABG pH ABG pO2 ABG HCO3 ABG O2 Saturation ABG Base Excess -3.2 L ABG Hemoglobin 9.0 L Oxyhemoglobin 93.6 L Sodium Potassium Chloride Carbon Dioxide BUN Creatinine Glucose POC Glucose Lactic Acid Calcium Ionized Calcium 4.5 L Phosphorus Magnesium Total Bilirubin AST ALT Alkaline Phosphatase Ammonia Total Creatine Kinase CK-MB (CK-2) CK-MB (CK-2) Rel Index Total Protein Albumin Urine WBC (Auto) Vancomycin Trough Salicylates Acetaminophen Plasma/Serum Alcohol Crossmatch 11/23/19 11/24/19 11/24/19 06:32 04:35 04:35 WBC RBC Hgb Hct MCH RDW Plt Count Lymph % (Auto) [place] % (Auto) [place] # Baso # Seg Neutrophils % Seg Neuts % (Manual) Lymphocytes % (Manual) Monocytes % (Manual) Seg Neutrophils # Seg Neutrophils # Man Lymphocytes # (Manual) Monocytes # (Manual) Eosinophils # (Manual) Basophils # (Manual) PT INR APTT ABG pH ABG pO2 ABG HCO3 ABG O2 Saturation ABG Base Excess ABG Hemoglobin Oxyhemoglobin Sodium Potassium Chloride Carbon Dioxide BUN Creatinine Glucose POC Glucose Lactic Acid 3.30 H* Calcium Ionized Calcium Phosphorus Magnesium 1.40 L Total Bilirubin AST ALT Alkaline Phosphatase Ammonia 98.0 H Total Creatine Kinase CK-MB (CK-2) CK-MB (CK-2) Rel Index Total Protein Albumin Urine WBC (Auto) Vancomycin Trough Salicylates Acetaminophen Plasma/Serum Alcohol Crossmatch 11/24/19 11/25/19 11/25/19 05:22 04:34 05:05 WBC 17.3 H RBC 2.88 L Hgb 7.8 L Hct 24.6 L MCH 27 L RDW 18.5 H Plt Count Lymph % (Auto) 7.7 L [place] % (Auto) 9.7 H [place] # 1.7 H Baso # Seg Neutrophils % 82.2 H Seg Neuts % (Manual) Lymphocytes % (Manual) Monocytes % (Manual) Seg Neutrophils # 14.2 H Seg Neutrophils # Man Lymphocytes # (Manual) Monocytes # (Manual) Eosinophils # (Manual) Basophils # (Manual) PT INR APTT ABG pH 7.475 H ABG pO2 ABG HCO3 29.4 H 32.3 H ABG O2 Saturation ABG Base Excess 5.4 H 6.9 H ABG Hemoglobin 9.0 L 10.6 L Oxyhemoglobin 94.3 L Sodium Potassium Chloride Carbon Dioxide BUN Creatinine Glucose POC Glucose Lactic Acid Calcium Ionized Calcium Phosphorus Magnesium Total Bilirubin AST ALT Alkaline Phosphatase Ammonia Total Creatine Kinase CK-MB (CK-2) CK-MB (CK-2) Rel Index Total Protein Albumin Urine WBC (Auto) Vancomycin Trough Salicylates Acetaminophen Plasma/Serum Alcohol Crossmatch 11/25/19 11/25/19 11/26/19 05:05 22:46 03:31 WBC RBC Hgb Hct MCH RDW Plt Count Lymph % (Auto) [place] % (Auto) [place] # Baso # Seg Neutrophils % Seg Neuts % (Manual) Lymphocytes % (Manual) Monocytes % (Manual) Seg Neutrophils # Seg Neutrophils # Man Lymphocytes # (Manual) Monocytes # (Manual) Eosinophils # (Manual) Basophils # (Manual) PT INR APTT ABG pH 7.459 H ABG pO2 ABG HCO3 34.2 H ABG O2 Saturation ABG Base Excess 9.4 H ABG Hemoglobin 7.6 L Oxyhemoglobin 94.8 L Sodium 152 H D 147 H Potassium 2.3 L* D 2.8 L* D Chloride 107.8 H Carbon Dioxide 31 H D 33 H BUN Creatinine 0.6 L 0.6 L Glucose 148 H 177 H POC Glucose Lactic Acid Calcium Ionized Calcium Phosphorus Magnesium Total Bilirubin AST 105 H ALT 71 H Alkaline Phosphatase 155 H Ammonia Total Creatine Kinase CK-MB (CK-2) CK-MB (CK-2) Rel Index Total Protein 5.2 L D Albumin 2.9 L Urine WBC (Auto) Vancomycin Trough Salicylates Acetaminophen Plasma/Serum Alcohol Crossmatch 11/26/19 11/26/19 11/27/19 08:24 08:24 04:20 WBC 12.0 H RBC 3.00 L Hgb 8.0 L 9.3 L Hct 25.9 L 29.7 L MCH 27 L RDW 18.5 H Plt Count Lymph % (Auto) [place] % (Auto) [place] # Baso # Seg Neutrophils % Seg Neuts % (Manual) 89.0 H Lymphocytes % (Manual) 4.0 L Monocytes % (Manual) Seg Neutrophils # Seg Neutrophils # Man 10.7 H Lymphocytes # (Manual) 0.5 L Monocytes # (Manual) Eosinophils # (Manual) Basophils # (Manual) PT INR APTT ABG pH ABG pO2 ABG HCO3 ABG O2 Saturation ABG Base Excess ABG Hemoglobin Oxyhemoglobin Sodium 146 H Potassium 3.4 L D Chloride Carbon Dioxide BUN Creatinine 0.5 L Glucose 165 H POC Glucose Lactic Acid Calcium Ionized Calcium Phosphorus Magnesium Total Bilirubin AST 57 H ALT Alkaline Phosphatase 166 H Ammonia Total Creatine Kinase CK-MB (CK-2) CK-MB (CK-2) Rel Index Total Protein Albumin 2.9 L Urine WBC (Auto) Vancomycin Trough Salicylates Acetaminophen Plasma/Serum Alcohol Crossmatch 11/27/19 11/27/19 11/27/19 04:28 04:28 04:42 WBC RBC Hgb Hct MCH RDW Plt Count Lymph % (Auto) [place] % (Auto) [place] # Baso # Seg Neutrophils % Seg Neuts % (Manual) Lymphocytes % (Manual) Monocytes % (Manual) Seg Neutrophils # Seg Neutrophils # Man Lymphocytes # (Manual) Monocytes # (Manual) Eosinophils # (Manual) Basophils # (Manual) PT INR APTT ABG pH 7.470 H ABG pO2 74.0 L ABG HCO3 33.8 H ABG O2 Saturation ABG Base Excess 9.1 H ABG Hemoglobin 8.7 L Oxyhemoglobin 94.7 L Sodium 146 H Potassium 2.9 L* Chloride Carbon Dioxide BUN 25 H Creatinine Glucose 213 H POC Glucose Lactic Acid Calcium Ionized Calcium Phosphorus 1.00 L Magnesium Total Bilirubin AST ALT Alkaline Phosphatase Ammonia Total Creatine Kinase CK-MB (CK-2) CK-MB (CK-2) Rel Index Total Protein Albumin Urine WBC (Auto) Vancomycin Trough Salicylates Acetaminophen Plasma/Serum Alcohol Crossmatch 11/27/19 11/27/19 11/27/19 05:37 12:20 15:46 WBC RBC Hgb Hct MCH RDW Plt Count Lymph % (Auto) [place] % (Auto) [place] # Baso # Seg Neutrophils % Seg Neuts % (Manual) Lymphocytes % (Manual) Monocytes % (Manual) Seg Neutrophils # Seg Neutrophils # Man Lymphocytes # (Manual) Monocytes # (Manual) Eosinophils # (Manual) Basophils # (Manual) PT INR APTT ABG pH ABG pO2 ABG HCO3 ABG O2 Saturation ABG Base Excess ABG Hemoglobin Oxyhemoglobin Sodium 146 H Potassium 3.5 L D Chloride Carbon Dioxide BUN 24 H Creatinine 0.6 L Glucose 187 H POC Glucose 117 H 220 H Lactic Acid Calcium Ionized Calcium Phosphorus Magnesium Total Bilirubin AST ALT Alkaline Phosphatase Ammonia Total Creatine Kinase CK-MB (CK-2) CK-MB (CK-2) Rel Index Total Protein Albumin Urine WBC (Auto) Vancomycin Trough Salicylates Acetaminophen Plasma/Serum Alcohol Crossmatch 11/27/19 11/28/19 11/28/19 17:28 05:00 05:02 WBC RBC Hgb Hct MCH RDW Plt Count Lymph % (Auto) [place] % (Auto) [place] # Baso # Seg Neutrophils % Seg Neuts % (Manual) Lymphocytes % (Manual) Monocytes % (Manual) Seg Neutrophils # Seg Neutrophils # Man Lymphocytes # (Manual) Monocytes # (Manual) Eosinophils # (Manual) Basophils # (Manual) PT INR APTT ABG pH ABG pO2 72.4 L ABG HCO3 33.6 H ABG O2 Saturation 94.1 L ABG Base Excess 7.3 H ABG Hemoglobin Oxyhemoglobin 91.8 L Sodium 146 H Potassium 3.3 L Chloride Carbon Dioxide BUN 25 H Creatinine 0.6 L Glucose 176 H POC Glucose 198 H Lactic Acid Calcium Ionized Calcium Phosphorus Magnesium Total Bilirubin AST ALT Alkaline Phosphatase Ammonia Total Creatine Kinase CK-MB (CK-2) CK-MB (CK-2) Rel Index Total Protein Albumin Urine WBC (Auto) Vancomycin Trough Salicylates Acetaminophen Plasma/Serum Alcohol Crossmatch 11/28/19 11/28/19 11/29/19 05:02 18:55 10:43 WBC 15.2 H 19.0 H RBC 3.06 L 3.01 L Hgb 8.3 L 8.3 L Hct 27.0 L 26.4 L MCH 27 L RDW 19.0 H 19.7 H Plt Count 479 H 611 H Lymph % (Auto) [place] % (Auto) [place] # Baso # Seg Neutrophils % Seg Neuts % (Manual) 92.0 H Lymphocytes % (Manual) 2.0 L Monocytes % (Manual) Seg Neutrophils # Seg Neutrophils # Man 14.0 H Lymphocytes # (Manual) 0.3 L Monocytes # (Manual) Eosinophils # (Manual) Basophils # (Manual) PT INR APTT ABG pH ABG pO2 ABG HCO3 ABG O2 Saturation ABG Base Excess ABG Hemoglobin Oxyhemoglobin Sodium Potassium Chloride Carbon Dioxide BUN Creatinine Glucose POC Glucose 138 H Lactic Acid Calcium Ionized Calcium Phosphorus Magnesium Total Bilirubin AST ALT Alkaline Phosphatase Ammonia Total Creatine Kinase CK-MB (CK-2) CK-MB (CK-2) Rel Index Total Protein Albumin Urine WBC (Auto) Vancomycin Trough Salicylates Acetaminophen Plasma/Serum Alcohol Crossmatch 11/29/19 11/29/19 11/29/19 10:43 12:27 19:25 WBC RBC Hgb Hct MCH RDW Plt Count Lymph % (Auto) [place] % (Auto) [place] # Baso # Seg Neutrophils % Seg Neuts % (Manual) Lymphocytes % (Manual) Monocytes % (Manual) Seg Neutrophils # Seg Neutrophils # Man Lymphocytes # (Manual) Monocytes # (Manual) Eosinophils # (Manual) Basophils # (Manual) PT INR APTT ABG pH ABG pO2 ABG HCO3 ABG O2 Saturation ABG Base Excess ABG Hemoglobin Oxyhemoglobin Sodium Potassium 2.8 L* Chloride Carbon Dioxide BUN 20 H Creatinine 0.5 L Glucose 121 H POC Glucose 128 H 120 H Lactic Acid Calcium Ionized Calcium Phosphorus Magnesium Total Bilirubin AST ALT Alkaline Phosphatase Ammonia Total Creatine Kinase CK-MB (CK-2) CK-MB (CK-2) Rel Index Total Protein Albumin Urine WBC (Auto) Vancomycin Trough Salicylates Acetaminophen Plasma/Serum Alcohol Crossmatch 11/29/19 11/30/19 11/30/19 23:46 04:10 05:02 WBC RBC Hgb Hct MCH RDW Plt Count Lymph % (Auto) [place] % (Auto) [place] # Baso # Seg Neutrophils % Seg Neuts % (Manual) Lymphocytes % (Manual) Monocytes % (Manual) Seg Neutrophils # Seg Neutrophils # Man Lymphocytes # (Manual) Monocytes # (Manual) Eosinophils # (Manual) Basophils # (Manual) PT INR APTT ABG pH ABG pO2 76.3 L ABG HCO3 32.5 H ABG O2 Saturation ABG Base Excess 6.9 H ABG Hemoglobin 8.0 L Oxyhemoglobin 92.6 L Sodium Potassium Chloride Carbon Dioxide BUN Creatinine Glucose POC Glucose 116 H 128 H Lactic Acid Calcium Ionized Calcium Phosphorus Magnesium Total Bilirubin AST ALT Alkaline Phosphatase Ammonia Total Creatine Kinase CK-MB (CK-2) CK-MB (CK-2) Rel Index Total Protein Albumin Urine WBC (Auto) Vancomycin Trough Salicylates Acetaminophen Plasma/Serum Alcohol Crossmatch 11/30/19 11/30/19 11/30/19 05:25 05:25 12:59 WBC 18.4 H RBC 3.10 L Hgb 8.5 L Hct 27.5 L MCH 27 L RDW 20.9 H Plt Count 691 H Lymph % (Auto) 7.1 L [place] % (Auto) 7.7 H [place] # 1.4 H Baso # Seg Neutrophils % 83.4 H Seg Neuts % (Manual) Lymphocytes % (Manual) Monocytes % (Manual) Seg Neutrophils # 15.4 H Seg Neutrophils # Man Lymphocytes # (Manual) Monocytes # (Manual) Eosinophils # (Manual) Basophils # (Manual) PT INR APTT ABG pH ABG pO2 ABG HCO3 ABG O2 Saturation ABG Base Excess ABG Hemoglobin Oxyhemoglobin Sodium 146 H Potassium Chloride 107.2 H Carbon Dioxide BUN Creatinine 0.5 L Glucose 132 H POC Glucose 124 H Lactic Acid Calcium Ionized Calcium Phosphorus Magnesium Total Bilirubin AST 246 H ALT 274 H Alkaline Phosphatase 203 H Ammonia Total Creatine Kinase CK-MB (CK-2) CK-MB (CK-2) Rel Index Total Protein 5.4 L Albumin 2.9 L Urine WBC (Auto) Vancomycin Trough Salicylates Acetaminophen Plasma/Serum Alcohol Crossmatch 11/30/19 12/01/19 12/01/19 17:53 00:05 05:10 WBC RBC Hgb Hct MCH RDW Plt Count Lymph % (Auto) [place] % (Auto) [place] # Baso # Seg Neutrophils % Seg Neuts % (Manual) Lymphocytes % (Manual) Monocytes % (Manual) Seg Neutrophils # Seg Neutrophils # Man Lymphocytes # (Manual) Monocytes # (Manual) Eosinophils # (Manual) Basophils # (Manual) PT INR APTT ABG pH ABG pO2 ABG HCO3 ABG O2 Saturation ABG Base Excess ABG Hemoglobin Oxyhemoglobin Sodium Potassium Chloride Carbon Dioxide BUN Creatinine Glucose POC Glucose 113 H 143 H 145 H Lactic Acid Calcium Ionized Calcium Phosphorus Magnesium Total Bilirubin AST ALT Alkaline Phosphatase Ammonia Total Creatine Kinase CK-MB (CK-2) CK-MB (CK-2) Rel Index Total Protein Albumin Urine WBC (Auto) Vancomycin Trough Salicylates Acetaminophen Plasma/Serum Alcohol Crossmatch 12/01/19 12/01/19 12/01/19 05:33 08:23 08:23 WBC 22.7 H RBC 2.88 L Hgb 7.9 L Hct 25.2 L MCH 27 L RDW 21.0 H Plt Count 732 H Lymph % (Auto) [place] % (Auto) [place] # Baso # Seg Neutrophils % Seg Neuts % (Manual) 91.0 H Lymphocytes % (Manual) 3.0 L Monocytes % (Manual) Seg Neutrophils # Seg Neutrophils # Man 20.7 H Lymphocytes # (Manual) 0.7 L Monocytes # (Manual) 1.1 H Eosinophils # (Manual) Basophils # (Manual) PT INR APTT ABG pH ABG pO2 68.6 L ABG HCO3 34.1 H ABG O2 Saturation ABG Base Excess 9.0 H ABG Hemoglobin 6.5 L Oxyhemoglobin 94.7 L Sodium Potassium Chloride Carbon Dioxide BUN Creatinine 0.5 L Glucose 125 H POC Glucose Lactic Acid Calcium Ionized Calcium Phosphorus Magnesium Total Bilirubin AST ALT Alkaline Phosphatase Ammonia Total Creatine Kinase CK-MB (CK-2) CK-MB (CK-2) Rel Index Total Protein Albumin Urine WBC (Auto) Vancomycin Trough Salicylates Acetaminophen Plasma/Serum Alcohol Crossmatch 12/01/19 12/01/19 12/01/19 13:21 17:54 20:59 WBC RBC Hgb Hct MCH RDW Plt Count Lymph % (Auto) [place] % (Auto) [place] # Baso # Seg Neutrophils % Seg Neuts % (Manual) Lymphocytes % (Manual) Monocytes % (Manual) Seg Neutrophils # Seg Neutrophils # Man Lymphocytes # (Manual) Monocytes # (Manual) Eosinophils # (Manual) Basophils # (Manual) PT INR APTT ABG pH ABG pO2 78.3 L ABG HCO3 33.8 H ABG O2 Saturation 94.9 L ABG Base Excess 7.9 H ABG Hemoglobin 11.5 L Oxyhemoglobin 92.3 L Sodium Potassium Chloride Carbon Dioxide BUN Creatinine Glucose POC Glucose 111 H 115 H Lactic Acid Calcium Ionized Calcium Phosphorus Magnesium Total Bilirubin AST ALT Alkaline Phosphatase Ammonia Total Creatine Kinase CK-MB (CK-2) CK-MB (CK-2) Rel Index Total Protein Albumin Urine WBC (Auto) Vancomycin Trough Salicylates Acetaminophen Plasma/Serum Alcohol Crossmatch 12/02/19 12/03/19 12/04/19 12:55 20:00 04:26 WBC 15.2 H RBC 2.69 L Hgb 7.4 L Hct 23.6 L MCH 27 L RDW 19.9 H Plt Count 838 H Lymph % (Auto) [place] % (Auto) [place] # Baso # Seg Neutrophils % Seg Neuts % (Manual) Lymphocytes % (Manual) Monocytes % (Manual) Seg Neutrophils # Seg Neutrophils # Man Lymphocytes # (Manual) Monocytes # (Manual) Eosinophils # (Manual) Basophils # (Manual) PT INR APTT ABG pH ABG pO2 68.3 L ABG HCO3 33.5 H ABG O2 Saturation 93.5 L ABG Base Excess 8.4 H ABG Hemoglobin 7.3 L Oxyhemoglobin 90.9 L Sodium Potassium Chloride Carbon Dioxide BUN Creatinine Glucose POC Glucose 107 H Lactic Acid Calcium Ionized Calcium Phosphorus Magnesium Total Bilirubin AST ALT Alkaline Phosphatase Ammonia Total Creatine Kinase CK-MB (CK-2) CK-MB (CK-2) Rel Index Total Protein Albumin Urine WBC (Auto) Vancomycin Trough Salicylates Acetaminophen Plasma/Serum Alcohol Crossmatch 12/04/19 12/04/19 12/04/19 04:26 07:45 12:02 WBC 15.9 H RBC 2.88 L Hgb 7.9 L Hct 25.1 L MCH RDW 20.4 H Plt Count 839 H Lymph % (Auto) 11.3 L [place] % (Auto) 15.2 H [place] # 2.4 H Baso # Seg Neutrophils % 72.4 H Seg Neuts % (Manual) Lymphocytes % (Manual) Monocytes % (Manual) Seg Neutrophils # 11.5 H Seg Neutrophils # Man Lymphocytes # (Manual) Monocytes # (Manual) Eosinophils # (Manual) Basophils # (Manual) PT INR APTT ABG pH ABG pO2 ABG HCO3 ABG O2 Saturation ABG Base Excess ABG Hemoglobin Oxyhemoglobin Sodium Potassium Chloride 96.5 L Carbon Dioxide BUN 21 H Creatinine 0.6 L Glucose 107 H POC Glucose 138 H Lactic Acid Calcium Ionized Calcium Phosphorus Magnesium Total Bilirubin AST ALT Alkaline Phosphatase Ammonia Total Creatine Kinase CK-MB (CK-2) CK-MB (CK-2) Rel Index Total Protein Albumin Urine WBC (Auto) Vancomycin Trough Salicylates Acetaminophen Plasma/Serum Alcohol Crossmatch 12/04/19 12/05/19 12/05/19 18:16 11:55 18:36 WBC RBC Hgb Hct MCH RDW Plt Count Lymph % (Auto) [place] % (Auto) [place] # Baso # Seg Neutrophils % Seg Neuts % (Manual) Lymphocytes % (Manual) Monocytes % (Manual) Seg Neutrophils # Seg Neutrophils # Man Lymphocytes # (Manual) Monocytes # (Manual) Eosinophils # (Manual) Basophils # (Manual) PT INR APTT ABG pH ABG pO2 ABG HCO3 ABG O2 Saturation ABG Base Excess ABG Hemoglobin Oxyhemoglobin Sodium Potassium Chloride Carbon Dioxide BUN Creatinine Glucose POC Glucose 135 H 125 H 135 H Lactic Acid Calcium Ionized Calcium Phosphorus Magnesium Total Bilirubin AST ALT Alkaline Phosphatase Ammonia Total Creatine Kinase CK-MB (CK-2) CK-MB (CK-2) Rel Index Total Protein Albumin Urine WBC (Auto) Vancomycin Trough Salicylates Acetaminophen Plasma/Serum Alcohol Crossmatch 12/05/19 12/06/19 12/06/19 23:30 04:14 05:43 WBC RBC Hgb Hct MCH RDW Plt Count Lymph % (Auto) [place] % (Auto) [place] # Baso # Seg Neutrophils % Seg Neuts % (Manual) Lymphocytes % (Manual) Monocytes % (Manual) Seg Neutrophils # Seg Neutrophils # Man Lymphocytes # (Manual) Monocytes # (Manual) Eosinophils # (Manual) Basophils # (Manual) PT INR APTT ABG pH ABG pO2 ABG HCO3 ABG O2 Saturation ABG Base Excess ABG Hemoglobin Oxyhemoglobin Sodium Potassium 5.6 H Chloride 95.0 L Carbon Dioxide BUN 48 H Creatinine 1.3 H D Glucose POC Glucose 126 H 121 H Lactic Acid Calcium Ionized Calcium Phosphorus Magnesium Total Bilirubin AST 89 H ALT 98 H Alkaline Phosphatase 476 H Ammonia Total Creatine Kinase CK-MB (CK-2) CK-MB (CK-2) Rel Index Total Protein Albumin 2.8 L Urine WBC (Auto) Vancomycin Trough Salicylates Acetaminophen Plasma/Serum Alcohol Crossmatch 12/06/19 12/06/19 12/07/19 10:39 14:34 00:19 WBC 17.3 H RBC 2.60 L Hgb 7.1 L Hct 22.7 L MCH 27 L RDW 20.1 H Plt Count 832 H Lymph % (Auto) [place] % (Auto) [place] # Baso # Seg Neutrophils % Seg Neuts % (Manual) Lymphocytes % (Manual) Monocytes % (Manual) Seg Neutrophils # Seg Neutrophils # Man Lymphocytes # (Manual) Monocytes # (Manual) Eosinophils # (Manual) Basophils # (Manual) PT INR APTT ABG pH ABG pO2 ABG HCO3 ABG O2 Saturation ABG Base Excess ABG Hemoglobin Oxyhemoglobin Sodium Potassium Chloride Carbon Dioxide BUN Creatinine Glucose POC Glucose 128 H 136 H Lactic Acid Calcium Ionized Calcium Phosphorus Magnesium Total Bilirubin AST ALT Alkaline Phosphatase Ammonia Total Creatine Kinase CK-MB (CK-2) CK-MB (CK-2) Rel Index Total Protein Albumin Urine WBC (Auto) Vancomycin Trough Salicylates Acetaminophen Plasma/Serum Alcohol Crossmatch 12/07/19 12/07/19 12/07/19 03:44 03:44 05:53 WBC 16.2 H RBC 2.56 L Hgb 7.1 L Hct 22.3 L MCH RDW 19.4 H Plt Count 782 H Lymph % (Auto) [place] % (Auto) [place] # Baso # Seg Neutrophils % Seg Neuts % (Manual) Lymphocytes % (Manual) Monocytes % (Manual) Seg Neutrophils # Seg Neutrophils # Man Lymphocytes # (Manual) Monocytes # (Manual) Eosinophils # (Manual) Basophils # (Manual) PT INR APTT ABG pH ABG pO2 ABG HCO3 ABG O2 Saturation ABG Base Excess ABG Hemoglobin Oxyhemoglobin Sodium Potassium Chloride 95.6 L Carbon Dioxide BUN 56 H Creatinine 1.4 H Glucose 120 H POC Glucose 128 H Lactic Acid Calcium 10.3 H Ionized Calcium Phosphorus Magnesium Total Bilirubin AST ALT Alkaline Phosphatase Ammonia Total Creatine Kinase CK-MB (CK-2) CK-MB (CK-2) Rel Index Total Protein Albumin Urine WBC (Auto) Vancomycin Trough Salicylates Acetaminophen Plasma/Serum Alcohol Crossmatch 12/07/19 12/07/19 12/08/19 12:54 23:47 00:20 WBC RBC Hgb Hct MCH RDW Plt Count Lymph % (Auto) [place] % (Auto) [place] # Baso # Seg Neutrophils % Seg Neuts % (Manual) Lymphocytes % (Manual) Monocytes % (Manual) Seg Neutrophils # Seg Neutrophils # Man Lymphocytes # (Manual) Monocytes # (Manual) Eosinophils # (Manual) Basophils # (Manual) PT INR APTT ABG pH ABG pO2 ABG HCO3 ABG O2 Saturation ABG Base Excess ABG Hemoglobin Oxyhemoglobin Sodium Potassium Chloride Carbon Dioxide BUN Creatinine Glucose POC Glucose 128 H 130 H 124 H Lactic Acid Calcium Ionized Calcium Phosphorus Magnesium Total Bilirubin AST ALT Alkaline Phosphatase Ammonia Total Creatine Kinase CK-MB (CK-2) CK-MB (CK-2) Rel Index Total Protein Albumin Urine WBC (Auto) Vancomycin Trough Salicylates Acetaminophen Plasma/Serum Alcohol Crossmatch 12/08/19 12/08/19 12/08/19 06:38 12:04 18:26 WBC RBC Hgb Hct MCH RDW Plt Count Lymph % (Auto) [place] % (Auto) [place] # Baso # Seg Neutrophils % Seg Neuts % (Manual) Lymphocytes % (Manual) Monocytes % (Manual) Seg Neutrophils # Seg Neutrophils # Man Lymphocytes # (Manual) Monocytes # (Manual) Eosinophils # (Manual) Basophils # (Manual) PT INR APTT ABG pH ABG pO2 ABG HCO3 ABG O2 Saturation ABG Base Excess ABG Hemoglobin Oxyhemoglobin Sodium Potassium Chloride Carbon Dioxide BUN Creatinine Glucose POC Glucose 137 H 129 H 150 H Lactic Acid Calcium Ionized Calcium Phosphorus Magnesium Total Bilirubin AST ALT Alkaline Phosphatase Ammonia Total Creatine Kinase CK-MB (CK-2) CK-MB (CK-2) Rel Index Total Protein Albumin Urine WBC (Auto) Vancomycin Trough Salicylates Acetaminophen Plasma/Serum Alcohol Crossmatch 12/09/19 12/09/19 12/09/19 00:56 05:34 06:13 WBC RBC Hgb Hct MCH RDW Plt Count Lymph % (Auto) [place] % (Auto) [place] # Baso # Seg Neutrophils % Seg Neuts % (Manual) Lymphocytes % (Manual) Monocytes % (Manual) Seg Neutrophils # Seg Neutrophils # Man Lymphocytes # (Manual) Monocytes # (Manual) Eosinophils # (Manual) Basophils # (Manual) PT INR APTT ABG pH ABG pO2 ABG HCO3 ABG O2 Saturation ABG Base Excess ABG Hemoglobin Oxyhemoglobin Sodium 146 H Potassium Chloride Carbon Dioxide BUN 66 H Creatinine 1.9 H Glucose 116 H POC Glucose 130 H 130 H Lactic Acid Calcium Ionized Calcium Phosphorus Magnesium Total Bilirubin AST ALT Alkaline Phosphatase Ammonia Total Creatine Kinase CK-MB (CK-2) CK-MB (CK-2) Rel Index Total Protein Albumin Urine WBC (Auto) Vancomycin Trough Salicylates Acetaminophen Plasma/Serum Alcohol Crossmatch 12/09/19 12/09/19 12/10/19 11:52 17:50 00:14 WBC RBC Hgb Hct MCH RDW Plt Count Lymph % (Auto) [place] % (Auto) [place] # Baso # Seg Neutrophils % Seg Neuts % (Manual) Lymphocytes % (Manual) Monocytes % (Manual) Seg Neutrophils # Seg Neutrophils # Man Lymphocytes # (Manual) Monocytes # (Manual) Eosinophils # (Manual) Basophils # (Manual) PT INR APTT ABG pH ABG pO2 ABG HCO3 ABG O2 Saturation ABG Base Excess ABG Hemoglobin Oxyhemoglobin Sodium Potassium Chloride Carbon Dioxide BUN Creatinine Glucose POC Glucose 135 H 120 H 116 H Lactic Acid Calcium Ionized Calcium Phosphorus Magnesium Total Bilirubin AST ALT Alkaline Phosphatase Ammonia Total Creatine Kinase CK-MB (CK-2) CK-MB (CK-2) Rel Index Total Protein Albumin Urine WBC (Auto) Vancomycin Trough Salicylates Acetaminophen Plasma/Serum Alcohol Crossmatch 12/10/19 12/10/19 12/10/19 05:38 11:38 17:34 WBC RBC Hgb Hct MCH RDW Plt Count Lymph % (Auto) [place] % (Auto) [place] # Baso # Seg Neutrophils % Seg Neuts % (Manual) Lymphocytes % (Manual) Monocytes % (Manual) Seg Neutrophils # Seg Neutrophils # Man Lymphocytes # (Manual) Monocytes # (Manual) Eosinophils # (Manual) Basophils # (Manual) PT INR APTT ABG pH ABG pO2 ABG HCO3 ABG O2 Saturation ABG Base Excess ABG Hemoglobin Oxyhemoglobin Sodium Potassium Chloride Carbon Dioxide BUN Creatinine Glucose POC Glucose 115 H 112 H 130 H Lactic Acid Calcium Ionized Calcium Phosphorus Magnesium Total Bilirubin AST ALT Alkaline Phosphatase Ammonia Total Creatine Kinase CK-MB (CK-2) CK-MB (CK-2) Rel Index Total Protein Albumin Urine WBC (Auto) Vancomycin Trough Salicylates Acetaminophen Plasma/Serum Alcohol Crossmatch 12/11/19 12/11/19 12/11/19 00:20 05:31 12:22 WBC RBC Hgb Hct MCH RDW Plt Count Lymph % (Auto) [place] % (Auto) [place] # Baso # Seg Neutrophils % Seg Neuts % (Manual) Lymphocytes % (Manual) Monocytes % (Manual) Seg Neutrophils # Seg Neutrophils # Man Lymphocytes # (Manual) Monocytes # (Manual) Eosinophils # (Manual) Basophils # (Manual) PT INR APTT ABG pH ABG pO2 ABG HCO3 ABG O2 Saturation ABG Base Excess ABG Hemoglobin Oxyhemoglobin Sodium Potassium Chloride Carbon Dioxide BUN Creatinine Glucose POC Glucose 124 H 132 H 128 H Lactic Acid Calcium Ionized Calcium Phosphorus Magnesium Total Bilirubin AST ALT Alkaline Phosphatase Ammonia Total Creatine Kinase CK-MB (CK-2) CK-MB (CK-2) Rel Index Total Protein Albumin Urine WBC (Auto) Vancomycin Trough Salicylates Acetaminophen Plasma/Serum Alcohol Crossmatch 12/11/19 12/11/19 12/12/19 18:04 23:42 03:51 WBC RBC Hgb Hct MCH RDW Plt Count Lymph % (Auto) [place] % (Auto) [place] # Baso # Seg Neutrophils % Seg Neuts % (Manual) Lymphocytes % (Manual) Monocytes % (Manual) Seg Neutrophils # Seg Neutrophils # Man Lymphocytes # (Manual) Monocytes # (Manual) Eosinophils # (Manual) Basophils # (Manual) PT INR APTT ABG pH ABG pO2 ABG HCO3 ABG O2 Saturation ABG Base Excess ABG Hemoglobin Oxyhemoglobin Sodium 149 H Potassium Chloride Carbon Dioxide 20 L D BUN 77 H Creatinine 2.8 H Glucose POC Glucose 133 H 154 H Lactic Acid Calcium Ionized Calcium Phosphorus Magnesium Total Bilirubin AST ALT Alkaline Phosphatase Ammonia Total Creatine Kinase CK-MB (CK-2) CK-MB (CK-2) Rel Index Total Protein Albumin Urine WBC (Auto) Vancomycin Trough Salicylates Acetaminophen Plasma/Serum Alcohol Crossmatch 12/12/19 12/12/19 12/12/19 05:18 05:26 10:30 WBC 18.0 H RBC 2.51 L Hgb 6.8 L Hct 22.0 L MCH 27 L RDW 19.9 H Plt Count 582 H Lymph % (Auto) [place] % (Auto) [place] # Baso # Seg Neutrophils % Seg Neuts % (Manual) Lymphocytes % (Manual) Monocytes % (Manual) Seg Neutrophils # Seg Neutrophils # Man Lymphocytes # (Manual) Monocytes # (Manual) Eosinophils # (Manual) Basophils # (Manual) PT INR APTT ABG pH ABG pO2 ABG HCO3 ABG O2 Saturation ABG Base Excess ABG Hemoglobin Oxyhemoglobin Sodium Potassium Chloride Carbon Dioxide BUN Creatinine Glucose POC Glucose 135 H Lactic Acid Calcium Ionized Calcium Phosphorus Magnesium Total Bilirubin AST ALT Alkaline Phosphatase Ammonia Total Creatine Kinase CK-MB (CK-2) CK-MB (CK-2) Rel Index Total Protein Albumin Urine WBC (Auto) Vancomycin Trough Salicylates Acetaminophen Plasma/Serum Alcohol Crossmatch See Detail 12/12/19 12/12/19 12/12/19 11:44 18:10 23:21 WBC RBC Hgb Hct MCH RDW Plt Count Lymph % (Auto) [place] % (Auto) [place] # Baso # Seg Neutrophils % Seg Neuts % (Manual) Lymphocytes % (Manual) Monocytes % (Manual) Seg Neutrophils # Seg Neutrophils # Man Lymphocytes # (Manual) Monocytes # (Manual) Eosinophils # (Manual) Basophils # (Manual) PT INR APTT ABG pH ABG pO2 ABG HCO3 ABG O2 Saturation ABG Base Excess ABG Hemoglobin Oxyhemoglobin Sodium Potassium Chloride Carbon Dioxide BUN Creatinine Glucose POC Glucose 108 H 107 H 126 H Lactic Acid Calcium Ionized Calcium Phosphorus Magnesium Total Bilirubin AST ALT Alkaline Phosphatase Ammonia Total Creatine Kinase CK-MB (CK-2) CK-MB (CK-2) Rel Index Total Protein Albumin Urine WBC (Auto) Vancomycin Trough Salicylates Acetaminophen Plasma/Serum Alcohol Crossmatch 12/13/19 12/13/19 12/13/19 05:41 07:48 07:48 WBC 38.3 H RBC 2.37 L Hgb 6.3 L Hct 20.9 L MCH 27 L RDW 20.2 H Plt Count 546 H Lymph % (Auto) [place] % (Auto) [place] # Baso # Seg Neutrophils % Seg Neuts % (Manual) 93.0 H Lymphocytes % (Manual) 1.0 L Monocytes % (Manual) Seg Neutrophils # Seg Neutrophils # Man 35.6 H Lymphocytes # (Manual) 0.4 L Monocytes # (Manual) Eosinophils # (Manual) Basophils # (Manual) 0.4 H PT INR APTT ABG pH ABG pO2 ABG HCO3 ABG O2 Saturation ABG Base Excess ABG Hemoglobin Oxyhemoglobin Sodium 152 H Potassium 3.1 L D Chloride 111.9 H Carbon Dioxide 21 L BUN 53 H Creatinine 1.9 H Glucose 141 H POC Glucose 128 H Lactic Acid Calcium Ionized Calcium Phosphorus Magnesium Total Bilirubin AST ALT Alkaline Phosphatase 316 H Ammonia Total Creatine Kinase CK-MB (CK-2) CK-MB (CK-2) Rel Index Total Protein Albumin 2.4 L Urine WBC (Auto) Vancomycin Trough Salicylates Acetaminophen Plasma/Serum Alcohol Crossmatch 12/13/19 12/13/19 12/14/19 18:17 23:19 05:36 WBC RBC Hgb Hct MCH RDW Plt Count Lymph % (Auto) [place] % (Auto) [place] # Baso # Seg Neutrophils % Seg Neuts % (Manual) Lymphocytes % (Manual) Monocytes % (Manual) Seg Neutrophils # Seg Neutrophils # Man Lymphocytes # (Manual) Monocytes # (Manual) Eosinophils # (Manual) Basophils # (Manual) PT INR APTT ABG pH ABG pO2 ABG HCO3 ABG O2 Saturation ABG Base Excess ABG Hemoglobin Oxyhemoglobin Sodium Potassium Chloride Carbon Dioxide BUN Creatinine Glucose POC Glucose 141 H 158 H 182 H Lactic Acid Calcium Ionized Calcium Phosphorus Magnesium Total Bilirubin AST ALT Alkaline Phosphatase Ammonia Total Creatine Kinase CK-MB (CK-2) CK-MB (CK-2) Rel Index Total Protein Albumin Urine WBC (Auto) Vancomycin Trough Salicylates Acetaminophen Plasma/Serum Alcohol Crossmatch 12/14/19 12/14/19 12/14/19 08:48 08:48 10:31 WBC 33.3 H RBC 2.70 L Hgb 7.9 L 8.0 L Hct 25.3 L 24.0 L MCH RDW 19.2 H Plt Count 476 H Lymph % (Auto) [place] % (Auto) [place] # Baso # Seg Neutrophils % Seg Neuts % (Manual) Lymphocytes % (Manual) Monocytes % (Manual) Seg Neutrophils # Seg Neutrophils # Man Lymphocytes # (Manual) Monocytes # (Manual) Eosinophils # (Manual) Basophils # (Manual) PT INR APTT ABG pH ABG pO2 ABG HCO3 ABG O2 Saturation ABG Base Excess ABG Hemoglobin Oxyhemoglobin Sodium 153 H Potassium 2.5 L* Chloride 114.9 H Carbon Dioxide 20 L BUN 38 H Creatinine 1.4 H Glucose 177 H POC Glucose Lactic Acid Calcium Ionized Calcium Phosphorus Magnesium Total Bilirubin AST ALT Alkaline Phosphatase Ammonia Total Creatine Kinase CK-MB (CK-2) CK-MB (CK-2) Rel Index Total Protein Albumin Urine WBC (Auto) Vancomycin Trough Salicylates Acetaminophen Plasma/Serum Alcohol Crossmatch 12/14/19 12/14/19 12/14/19 12:57 16:15 17:50 WBC RBC Hgb Hct MCH RDW Plt Count Lymph % (Auto) [place] % (Auto) [place] # Baso # Seg Neutrophils % Seg Neuts % (Manual) Lymphocytes % (Manual) Monocytes % (Manual) Seg Neutrophils # Seg Neutrophils # Man Lymphocytes # (Manual) Monocytes # (Manual) Eosinophils # (Manual) Basophils # (Manual) PT INR APTT ABG pH ABG pO2 73.6 L ABG HCO3 ABG O2 Saturation ABG Base Excess ABG Hemoglobin 7.6 L Oxyhemoglobin 94.0 L Sodium Potassium Chloride Carbon Dioxide BUN Creatinine Glucose POC Glucose 174 H 150 H Lactic Acid Calcium Ionized Calcium Phosphorus Magnesium Total Bilirubin AST ALT Alkaline Phosphatase Ammonia Total Creatine Kinase CK-MB (CK-2) CK-MB (CK-2) Rel Index Total Protein Albumin Urine WBC (Auto) Vancomycin Trough Salicylates Acetaminophen Plasma/Serum Alcohol Crossmatch 12/15/19 12/15/19 12/15/19 00:28 05:27 07:23 WBC 30.0 H RBC 3.11 L Hgb 8.6 L Hct 27.7 L MCH RDW 20.0 H Plt Count 473 H Lymph % (Auto) [place] % (Auto) [place] # Baso # Seg Neutrophils % Seg Neuts % (Manual) Lymphocytes % (Manual) Monocytes % (Manual) Seg Neutrophils # Seg Neutrophils # Man Lymphocytes # (Manual) Monocytes # (Manual) Eosinophils # (Manual) Basophils # (Manual) PT INR APTT ABG pH ABG pO2 ABG HCO3 ABG O2 Saturation ABG Base Excess ABG Hemoglobin Oxyhemoglobin Sodium Potassium Chloride Carbon Dioxide BUN Creatinine Glucose POC Glucose 167 H 148 H Lactic Acid Calcium Ionized Calcium Phosphorus Magnesium Total Bilirubin AST ALT Alkaline Phosphatase Ammonia Total Creatine Kinase CK-MB (CK-2) CK-MB (CK-2) Rel Index Total Protein Albumin Urine WBC (Auto) Vancomycin Trough Salicylates Acetaminophen Plasma/Serum Alcohol Crossmatch 12/15/19 12/15/19 12/15/19 07:23 12:21 17:41 WBC RBC Hgb Hct MCH RDW Plt Count Lymph % (Auto) [place] % (Auto) [place] # Baso # Seg Neutrophils % Seg Neuts % (Manual) Lymphocytes % (Manual) Monocytes % (Manual) Seg Neutrophils # Seg Neutrophils # Man Lymphocytes # (Manual) Monocytes # (Manual) Eosinophils # (Manual) Basophils # (Manual) PT INR APTT ABG pH ABG pO2 ABG HCO3 ABG O2 Saturation ABG Base Excess ABG Hemoglobin Oxyhemoglobin Sodium 147 H Potassium 3.5 L D Chloride 111.2 H Carbon Dioxide 19 L BUN 29 H Creatinine Glucose 126 H POC Glucose 154 H 144 H Lactic Acid Calcium Ionized Calcium Phosphorus Magnesium Total Bilirubin AST ALT Alkaline Phosphatase Ammonia Total Creatine Kinase CK-MB (CK-2) CK-MB (CK-2) Rel Index Total Protein Albumin Urine WBC (Auto) Vancomycin Trough Salicylates Acetaminophen Plasma/Serum Alcohol Crossmatch 12/16/19 12/16/19 12/16/19 00:22 05:30 05:44 WBC 30.8 H RBC 2.58 L Hgb 7.1 L Hct 22.7 L MCH RDW 19.6 H Plt Count 451 H Lymph % (Auto) [place] % (Auto) [place] # Baso # Seg Neutrophils % Seg Neuts % (Manual) Lymphocytes % (Manual) Monocytes % (Manual) Seg Neutrophils # Seg Neutrophils # Man Lymphocytes # (Manual) Monocytes # (Manual) Eosinophils # (Manual) Basophils # (Manual) PT INR APTT ABG pH ABG pO2 ABG HCO3 ABG O2 Saturation ABG Base Excess ABG Hemoglobin Oxyhemoglobin Sodium Potassium Chloride Carbon Dioxide BUN Creatinine Glucose POC Glucose 139 H 126 H Lactic Acid Calcium Ionized Calcium Phosphorus Magnesium Total Bilirubin AST ALT Alkaline Phosphatase Ammonia Total Creatine Kinase CK-MB (CK-2) CK-MB (CK-2) Rel Index Total Protein Albumin Urine WBC (Auto) Vancomycin Trough Salicylates Acetaminophen Plasma/Serum Alcohol Crossmatch 12/16/19 12/16/19 12/16/19 05:44 11:48 17:37 WBC RBC Hgb Hct MCH RDW Plt Count Lymph % (Auto) [place] % (Auto) [place] # Baso # Seg Neutrophils % Seg Neuts % (Manual) Lymphocytes % (Manual) Monocytes % (Manual) Seg Neutrophils # Seg Neutrophils # Man Lymphocytes # (Manual) Monocytes # (Manual) Eosinophils # (Manual) Basophils # (Manual) PT INR APTT ABG pH ABG pO2 ABG HCO3 ABG O2 Saturation ABG Base Excess ABG Hemoglobin Oxyhemoglobin Sodium Potassium 3.4 L Chloride 109.2 H Carbon Dioxide 19 L BUN 27 H Creatinine Glucose 124 H POC Glucose 125 H 148 H Lactic Acid Calcium Ionized Calcium Phosphorus Magnesium Total Bilirubin AST ALT Alkaline Phosphatase Ammonia Total Creatine Kinase CK-MB (CK-2) CK-MB (CK-2) Rel Index Total Protein Albumin Urine WBC (Auto) Vancomycin Trough Salicylates Acetaminophen Plasma/Serum Alcohol Crossmatch 12/16/19 12/17/19 12/17/19 23:43 05:28 12:47 WBC RBC Hgb Hct MCH RDW Plt Count Lymph % (Auto) [place] % (Auto) [place] # Baso # Seg Neutrophils % Seg Neuts % (Manual) Lymphocytes % (Manual) Monocytes % (Manual) Seg Neutrophils # Seg Neutrophils # Man Lymphocytes # (Manual) Monocytes # (Manual) Eosinophils # (Manual) Basophils # (Manual) PT INR APTT ABG pH ABG pO2 ABG HCO3 ABG O2 Saturation ABG Base Excess ABG Hemoglobin Oxyhemoglobin Sodium Potassium Chloride Carbon Dioxide BUN Creatinine Glucose POC Glucose 142 H 140 H 125 H Lactic Acid Calcium Ionized Calcium Phosphorus Magnesium Total Bilirubin AST ALT Alkaline Phosphatase Ammonia Total Creatine Kinase CK-MB (CK-2) CK-MB (CK-2) Rel Index Total Protein Albumin Urine WBC (Auto) Vancomycin Trough Salicylates Acetaminophen Plasma/Serum Alcohol Crossmatch 12/17/19 12/17/19 12/17/19 17:05 18:00 Unknown WBC RBC Hgb Hct MCH RDW Plt Count Lymph % (Auto) [place] % (Auto) [place] # Baso # Seg Neutrophils % Seg Neuts % (Manual) Lymphocytes % (Manual) Monocytes % (Manual) Seg Neutrophils # Seg Neutrophils # Man Lymphocytes # (Manual) Monocytes # (Manual) Eosinophils # (Manual) Basophils # (Manual) PT INR APTT ABG pH ABG pO2 68.1 L ABG HCO3 ABG O2 Saturation 93.7 L ABG Base Excess ABG Hemoglobin 5.0 L Oxyhemoglobin 91.7 L Sodium Potassium Chloride Carbon Dioxide BUN Creatinine Glucose POC Glucose 140 H Lactic Acid Calcium Ionized Calcium Phosphorus Magnesium Total Bilirubin AST ALT Alkaline Phosphatase Ammonia Total Creatine Kinase CK-MB (CK-2) CK-MB (CK-2) Rel Index Total Protein Albumin Urine WBC (Auto) Vancomycin Trough Salicylates Acetaminophen Plasma/Serum Alcohol Crossmatch 12/18/19 12/18/19 12/18/19 00:16 04:53 04:53 WBC 28.6 H RBC 2.27 L Hgb 6.3 L Hct 19.5 L* MCH RDW 20.0 H Plt Count 497 H Lymph % (Auto) [place] % (Auto) [place] # Baso # Seg Neutrophils % Seg Neuts % (Manual) Lymphocytes % (Manual) Monocytes % (Manual) Seg Neutrophils # Seg Neutrophils # Man Lymphocytes # (Manual) Monocytes # (Manual) Eosinophils # (Manual) Basophils # (Manual) PT INR APTT ABG pH ABG pO2 ABG HCO3 ABG O2 Saturation ABG Base Excess ABG Hemoglobin Oxyhemoglobin Sodium Potassium Chloride 107.9 H Carbon Dioxide 20 L BUN 27 H Creatinine 0.6 L Glucose 116 H POC Glucose 123 H Lactic Acid Calcium Ionized Calcium Phosphorus Magnesium Total Bilirubin AST ALT Alkaline Phosphatase Ammonia Total Creatine Kinase CK-MB (CK-2) CK-MB (CK-2) Rel Index Total Protein Albumin Urine WBC (Auto) Vancomycin Trough Salicylates Acetaminophen Plasma/Serum Alcohol Crossmatch 12/18/19 12/18/19 12/18/19 06:38 11:22 12:08 WBC RBC Hgb Hct MCH RDW Plt Count Lymph % (Auto) [place] % (Auto) [place] # Baso # Seg Neutrophils % Seg Neuts % (Manual) Lymphocytes % (Manual) Monocytes % (Manual) Seg Neutrophils # Seg Neutrophils # Man Lymphocytes # (Manual) Monocytes # (Manual) Eosinophils # (Manual) Basophils # (Manual) PT INR APTT ABG pH ABG pO2 ABG HCO3 ABG O2 Saturation ABG Base Excess ABG Hemoglobin Oxyhemoglobin Sodium Potassium Chloride Carbon Dioxide BUN Creatinine Glucose POC Glucose 120 H 127 H Lactic Acid Calcium Ionized Calcium Phosphorus Magnesium Total Bilirubin AST ALT Alkaline Phosphatase Ammonia Total Creatine Kinase CK-MB (CK-2) CK-MB (CK-2) Rel Index Total Protein Albumin Urine WBC (Auto) Vancomycin Trough Salicylates Acetaminophen Plasma/Serum Alcohol Crossmatch See Detail 12/18/19 12/18/19 12/18/19 14:05 17:49 23:53 WBC RBC Hgb Hct MCH RDW Plt Count Lymph % (Auto) [place] % (Auto) [place] # Baso # Seg Neutrophils % Seg Neuts % (Manual) Lymphocytes % (Manual) Monocytes % (Manual) Seg Neutrophils # Seg Neutrophils # Man Lymphocytes # (Manual) Monocytes # (Manual) Eosinophils # (Manual) Basophils # (Manual) PT INR APTT ABG pH 7.267 L ABG pO2 69.8 L ABG HCO3 ABG O2 Saturation 88.4 L ABG Base Excess ABG Hemoglobin 7.1 L Oxyhemoglobin 86.4 L Sodium Potassium Chloride Carbon Dioxide BUN Creatinine Glucose POC Glucose 157 H 128 H Lactic Acid Calcium Ionized Calcium Phosphorus Magnesium Total Bilirubin AST ALT Alkaline Phosphatase Ammonia Total Creatine Kinase CK-MB (CK-2) CK-MB (CK-2) Rel Index Total Protein Albumin Urine WBC (Auto) Vancomycin Trough Salicylates Acetaminophen Plasma/Serum Alcohol Crossmatch 12/19/19 12/19/19 12/19/19 03:37 03:37 05:25 WBC 31.3 H RBC 2.60 L Hgb 7.6 L Hct 23.0 L MCH RDW 19.4 H Plt Count 530 H Lymph % (Auto) [place] % (Auto) [place] # Baso # Seg Neutrophils % Seg Neuts % (Manual) Lymphocytes % (Manual) Monocytes % (Manual) Seg Neutrophils # Seg Neutrophils # Man Lymphocytes # (Manual) Monocytes # (Manual) Eosinophils # (Manual) Basophils # (Manual) PT INR APTT ABG pH ABG pO2 ABG HCO3 ABG O2 Saturation ABG Base Excess ABG Hemoglobin Oxyhemoglobin Sodium Potassium Chloride Carbon Dioxide 18 L BUN 36 H Creatinine Glucose 111 H POC Glucose 123 H Lactic Acid Calcium Ionized Calcium Phosphorus Magnesium Total Bilirubin AST ALT Alkaline Phosphatase Ammonia Total Creatine Kinase CK-MB (CK-2) CK-MB (CK-2) Rel Index Total Protein Albumin Urine WBC (Auto) Vancomycin Trough Salicylates Acetaminophen Plasma/Serum Alcohol Crossmatch 12/19/19 12/19/19 12/20/19 12:59 18:33 00:00 WBC RBC Hgb Hct MCH RDW Plt Count Lymph % (Auto) [place] % (Auto) [place] # Baso # Seg Neutrophils % Seg Neuts % (Manual) Lymphocytes % (Manual) Monocytes % (Manual) Seg Neutrophils # Seg Neutrophils # Man Lymphocytes # (Manual) Monocytes # (Manual) Eosinophils # (Manual) Basophils # (Manual) PT INR APTT ABG pH ABG pO2 ABG HCO3 ABG O2 Saturation ABG Base Excess ABG Hemoglobin Oxyhemoglobin Sodium Potassium Chloride Carbon Dioxide BUN Creatinine Glucose POC Glucose 130 H 118 H 135 H Lactic Acid Calcium Ionized Calcium Phosphorus Magnesium Total Bilirubin AST ALT Alkaline Phosphatase Ammonia Total Creatine Kinase CK-MB (CK-2) CK-MB (CK-2) Rel Index Total Protein Albumin Urine WBC (Auto) Vancomycin Trough Salicylates Acetaminophen Plasma/Serum Alcohol Crossmatch 12/20/19 12/20/19 12/20/19 05:46 12:31 18:07 WBC RBC Hgb Hct MCH RDW Plt Count Lymph % (Auto) [place] % (Auto) [place] # Baso # Seg Neutrophils % Seg Neuts % (Manual) Lymphocytes % (Manual) Monocytes % (Manual) Seg Neutrophils # Seg Neutrophils # Man Lymphocytes # (Manual) Monocytes # (Manual) Eosinophils # (Manual) Basophils # (Manual) PT INR APTT ABG pH ABG pO2 ABG HCO3 ABG O2 Saturation ABG Base Excess ABG Hemoglobin Oxyhemoglobin Sodium Potassium Chloride Carbon Dioxide BUN Creatinine Glucose POC Glucose 131 H 128 H 134 H Lactic Acid Calcium Ionized Calcium Phosphorus Magnesium Total Bilirubin AST ALT Alkaline Phosphatase Ammonia Total Creatine Kinase CK-MB (CK-2) CK-MB (CK-2) Rel Index Total Protein Albumin Urine WBC (Auto) Vancomycin Trough Salicylates Acetaminophen Plasma/Serum Alcohol Crossmatch 12/21/19 12/21/19 12/21/19 03:28 03:28 07:21 WBC 29.4 H RBC 2.30 L Hgb 6.8 L Hct 20.2 L MCH RDW 20.2 H Plt Count 746 H Lymph % (Auto) [place] % (Auto) [place] # Baso # Seg Neutrophils % Seg Neuts % (Manual) 85.0 H Lymphocytes % (Manual) 8.0 L Monocytes % (Manual) Seg Neutrophils # Seg Neutrophils # Man 25.0 H Lymphocytes # (Manual) Monocytes # (Manual) 1.5 H Eosinophils # (Manual) 0.6 H Basophils # (Manual) PT INR APTT ABG pH ABG pO2 ABG HCO3 ABG O2 Saturation ABG Base Excess ABG Hemoglobin Oxyhemoglobin Sodium Potassium Chloride Carbon Dioxide 17 L BUN 57 H Creatinine 1.4 H D Glucose POC Glucose 124 H Lactic Acid Calcium Ionized Calcium Phosphorus Magnesium Total Bilirubin AST ALT Alkaline Phosphatase Ammonia Total Creatine Kinase CK-MB (CK-2) CK-MB (CK-2) Rel Index Total Protein Albumin Urine WBC (Auto) Vancomycin Trough Salicylates Acetaminophen Plasma/Serum Alcohol Crossmatch 12/21/19 12/21/19 12/21/19 08:56 12:06 14:53 WBC RBC Hgb 7.2 L Hct 22.9 L MCH RDW Plt Count Lymph % (Auto) [place] % (Auto) [place] # Baso # Seg Neutrophils % Seg Neuts % (Manual) Lymphocytes % (Manual) Monocytes % (Manual) Seg Neutrophils # Seg Neutrophils # Man Lymphocytes # (Manual) Monocytes # (Manual) Eosinophils # (Manual) Basophils # (Manual) PT INR APTT ABG pH ABG pO2 ABG HCO3 ABG O2 Saturation ABG Base Excess ABG Hemoglobin Oxyhemoglobin Sodium Potassium Chloride Carbon Dioxide BUN Creatinine Glucose POC Glucose 116 H Lactic Acid Calcium Ionized Calcium Phosphorus Magnesium Total Bilirubin AST ALT Alkaline Phosphatase Ammonia Total Creatine Kinase CK-MB (CK-2) CK-MB (CK-2) Rel Index Total Protein Albumin Urine WBC (Auto) Vancomycin Trough 33.8 H Salicylates Acetaminophen Plasma/Serum Alcohol Crossmatch 12/21/19 12/21/19 12/21/19 14:54 17:27 23:49 WBC RBC Hgb Hct MCH RDW Plt Count Lymph % (Auto) [place] % (Auto) [place] # Baso # Seg Neutrophils % Seg Neuts % (Manual) Lymphocytes % (Manual) Monocytes % (Manual) Seg Neutrophils # Seg Neutrophils # Man Lymphocytes # (Manual) Monocytes # (Manual) Eosinophils # (Manual) Basophils # (Manual) PT INR APTT ABG pH ABG pO2 ABG HCO3 ABG O2 Saturation ABG Base Excess ABG Hemoglobin Oxyhemoglobin Sodium Potassium Chloride Carbon Dioxide BUN Creatinine Glucose POC Glucose 145 H 127 H Lactic Acid Calcium Ionized Calcium Phosphorus Magnesium Total Bilirubin AST ALT Alkaline Phosphatase Ammonia Total Creatine Kinase CK-MB (CK-2) CK-MB (CK-2) Rel Index Total Protein Albumin Urine WBC (Auto) Vancomycin Trough Salicylates Acetaminophen Plasma/Serum Alcohol Crossmatch See Detail 12/22/19 12/22/19 12/22/19 04:43 05:56 08:40 WBC RBC Hgb Hct MCH RDW Plt Count Lymph % (Auto) [place] % (Auto) [place] # Baso # Seg Neutrophils % Seg Neuts % (Manual) Lymphocytes % (Manual) Monocytes % (Manual) Seg Neutrophils # Seg Neutrophils # Man Lymphocytes # (Manual) Monocytes # (Manual) Eosinophils # (Manual) Basophils # (Manual) PT INR APTT ABG pH ABG pO2 75.6 L ABG HCO3 ABG O2 Saturation ABG Base Excess -2.6 L ABG Hemoglobin 6.8 L Oxyhemoglobin 94.6 L Sodium Potassium Chloride Carbon Dioxide 17 L BUN 60 H Creatinine 1.4 H Glucose 126 H POC Glucose 153 H Lactic Acid Calcium Ionized Calcium Phosphorus Magnesium Total Bilirubin AST ALT Alkaline Phosphatase Ammonia Total Creatine Kinase CK-MB (CK-2) CK-MB (CK-2) Rel Index Total Protein Albumin Urine WBC (Auto) Vancomycin Trough Salicylates Acetaminophen Plasma/Serum Alcohol Crossmatch 12/22/19 12/22/19 12/23/19 12:07 17:49 04:30 WBC 22.4 H RBC 2.68 L Hgb 7.6 L Hct 22.9 L MCH RDW 19.9 H Plt Count 998 H Lymph % (Auto) [place] % (Auto) [place] # Baso # Seg Neutrophils % Seg Neuts % (Manual) 88.0 H Lymphocytes % (Manual) 2.0 L Monocytes % (Manual) 9.0 H Seg Neutrophils # Seg Neutrophils # Man 19.7 H Lymphocytes # (Manual) 0.4 L Monocytes # (Manual) 2.0 H Eosinophils # (Manual) Basophils # (Manual) PT INR APTT ABG pH ABG pO2 ABG HCO3 ABG O2 Saturation ABG Base Excess ABG Hemoglobin Oxyhemoglobin Sodium Potassium Chloride Carbon Dioxide BUN Creatinine Glucose POC Glucose 140 H 116 H Lactic Acid Calcium Ionized Calcium Phosphorus Magnesium Total Bilirubin AST ALT Alkaline Phosphatase Ammonia Total Creatine Kinase CK-MB (CK-2) CK-MB (CK-2) Rel Index Total Protein Albumin Urine WBC (Auto) Vancomycin Trough Salicylates Acetaminophen Plasma/Serum Alcohol Crossmatch 12/23/19 12/23/19 12/23/19 04:30 12:00 18:06 WBC RBC Hgb Hct MCH RDW Plt Count Lymph % (Auto) [place] % (Auto) [place] # Baso # Seg Neutrophils % Seg Neuts % (Manual) Lymphocytes % (Manual) Monocytes % (Manual) Seg Neutrophils # Seg Neutrophils # Man Lymphocytes # (Manual) Monocytes # (Manual) Eosinophils # (Manual) Basophils # (Manual) PT INR APTT ABG pH ABG pO2 ABG HCO3 ABG O2 Saturation ABG Base Excess ABG Hemoglobin Oxyhemoglobin Sodium Potassium 5.2 H Chloride Carbon Dioxide 21 L BUN 69 H Creatinine 1.5 H Glucose 117 H POC Glucose 128 H 138 H Lactic Acid Calcium Ionized Calcium Phosphorus Magnesium Total Bilirubin AST ALT Alkaline Phosphatase Ammonia Total Creatine Kinase CK-MB (CK-2) CK-MB (CK-2) Rel Index Total Protein Albumin Urine WBC (Auto) Vancomycin Trough Salicylates Acetaminophen Plasma/Serum Alcohol Crossmatch 12/23/19 12/24/19 12/24/19 23:46 04:31 05:08 WBC RBC Hgb Hct MCH RDW Plt Count Lymph % (Auto) [place] % (Auto) [place] # Baso # Seg Neutrophils % Seg Neuts % (Manual) Lymphocytes % (Manual) Monocytes % (Manual) Seg Neutrophils # Seg Neutrophils # Man Lymphocytes # (Manual) Monocytes # (Manual) Eosinophils # (Manual) Basophils # (Manual) PT INR APTT ABG pH ABG pO2 ABG HCO3 ABG O2 Saturation ABG Base Excess ABG Hemoglobin Oxyhemoglobin Sodium Potassium 5.3 H Chloride 107.6 H Carbon Dioxide 20 L BUN 72 H Creatinine 1.6 H Glucose 120 H POC Glucose 120 H 140 H Lactic Acid Calcium Ionized Calcium Phosphorus Magnesium Total Bilirubin AST ALT Alkaline Phosphatase Ammonia Total Creatine Kinase CK-MB (CK-2) CK-MB (CK-2) Rel Index Total Protein Albumin Urine WBC (Auto) Vancomycin Trough Salicylates Acetaminophen Plasma/Serum Alcohol Crossmatch 12/24/19 12/24/19 12/25/19 11:58 17:49 03:47 WBC 36.2 H RBC 2.92 L Hgb 8.4 L Hct 26.1 L MCH RDW 20.2 H Plt Count 942 H Lymph % (Auto) [place] % (Auto) [place] # Baso # Seg Neutrophils % Seg Neuts % (Manual) 97.5 H Lymphocytes % (Manual) 1.0 L Monocytes % (Manual) Seg Neutrophils # Seg Neutrophils # Man 35.3 H Lymphocytes # (Manual) 0.4 L Monocytes # (Manual) Eosinophils # (Manual) Basophils # (Manual) PT INR APTT ABG pH ABG pO2 ABG HCO3 ABG O2 Saturation ABG Base Excess ABG Hemoglobin Oxyhemoglobin Sodium Potassium Chloride Carbon Dioxide BUN Creatinine Glucose POC Glucose 146 H 131 H Lactic Acid Calcium Ionized Calcium Phosphorus Magnesium Total Bilirubin AST ALT Alkaline Phosphatase Ammonia Total Creatine Kinase CK-MB (CK-2) CK-MB (CK-2) Rel Index Total Protein Albumin Urine WBC (Auto) Vancomycin Trough Salicylates Acetaminophen Plasma/Serum Alcohol Crossmatch 12/25/19 12/25/19 12/25/19 03:47 05:30 12:23 WBC RBC Hgb Hct MCH RDW Plt Count Lymph % (Auto) [place] % (Auto) [place] # Baso # Seg Neutrophils % Seg Neuts % (Manual) Lymphocytes % (Manual) Monocytes % (Manual) Seg Neutrophils # Seg Neutrophils # Man Lymphocytes # (Manual) Monocytes # (Manual) Eosinophils # (Manual) Basophils # (Manual) PT INR APTT ABG pH ABG pO2 ABG HCO3 ABG O2 Saturation ABG Base Excess ABG Hemoglobin Oxyhemoglobin Sodium Potassium Chloride Carbon Dioxide 15 L BUN 70 H Creatinine 1.7 H Glucose 153 H POC Glucose 169 H 135 H Lactic Acid Calcium Ionized Calcium Phosphorus Magnesium Total Bilirubin AST ALT Alkaline Phosphatase Ammonia Total Creatine Kinase CK-MB (CK-2) CK-MB (CK-2) Rel Index Total Protein Albumin Urine WBC (Auto) Vancomycin Trough Salicylates Acetaminophen Plasma/Serum Alcohol Crossmatch 12/25/19 12/25/19 12/26/19 17:37 23:29 09:47 WBC 22.1 H RBC 2.83 L Hgb 7.9 L Hct 25.5 L MCH RDW 20.0 H Plt Count 894 H Lymph % (Auto) [place] % (Auto) [place] # Baso # Seg Neutrophils % Seg Neuts % (Manual) Lymphocytes % (Manual) Monocytes % (Manual) Seg Neutrophils # Seg Neutrophils # Man Lymphocytes # (Manual) Monocytes # (Manual) Eosinophils # (Manual) Basophils # (Manual) PT INR APTT ABG pH ABG pO2 ABG HCO3 ABG O2 Saturation ABG Base Excess ABG Hemoglobin Oxyhemoglobin Sodium Potassium Chloride Carbon Dioxide BUN Creatinine Glucose POC Glucose 120 H 140 H Lactic Acid Calcium Ionized Calcium Phosphorus Magnesium Total Bilirubin AST ALT Alkaline Phosphatase Ammonia Total Creatine Kinase CK-MB (CK-2) CK-MB (CK-2) Rel Index Total Protein Albumin Urine WBC (Auto) Vancomycin Trough Salicylates Acetaminophen Plasma/Serum Alcohol Crossmatch 12/26/19 12/26/19 12/26/19 09:47 11:46 17:52 WBC RBC Hgb Hct MCH RDW Plt Count Lymph % (Auto) [place] % (Auto) [place] # Baso # Seg Neutrophils % Seg Neuts % (Manual) Lymphocytes % (Manual) Monocytes % (Manual) Seg Neutrophils # Seg Neutrophils # Man Lymphocytes # (Manual) Monocytes # (Manual) Eosinophils # (Manual) Basophils # (Manual) PT INR APTT ABG pH ABG pO2 ABG HCO3 ABG O2 Saturation ABG Base Excess ABG Hemoglobin Oxyhemoglobin Sodium Potassium Chloride Carbon Dioxide 18 L BUN 65 H Creatinine 1.4 H Glucose 132 H POC Glucose 110 H 145 H Lactic Acid Calcium Ionized Calcium Phosphorus Magnesium Total Bilirubin AST ALT Alkaline Phosphatase Ammonia Total Creatine Kinase CK-MB (CK-2) CK-MB (CK-2) Rel Index Total Protein Albumin Urine WBC (Auto) Vancomycin Trough Salicylates Acetaminophen Plasma/Serum Alcohol Crossmatch 12/27/19 12/27/19 12/27/19 00:01 03:42 03:42 WBC 18.0 H RBC 2.86 L Hgb 8.0 L Hct 25.2 L MCH RDW 19.2 H Plt Count 873 H Lymph % (Auto) 8.4 L [place] % (Auto) 7.5 H [place] # 1.4 H Baso # 0.2 H Seg Neutrophils % 82.2 H Seg Neuts % (Manual) Lymphocytes % (Manual) Monocytes % (Manual) Seg Neutrophils # 14.8 H Seg Neutrophils # Man Lymphocytes # (Manual) Monocytes # (Manual) Eosinophils # (Manual) Basophils # (Manual) PT INR APTT ABG pH ABG pO2 ABG HCO3 ABG O2 Saturation ABG Base Excess ABG Hemoglobin Oxyhemoglobin Sodium Potassium Chloride Carbon Dioxide BUN 73 H Creatinine 1.4 H Glucose 119 H POC Glucose 124 H Lactic Acid Calcium Ionized Calcium Phosphorus Magnesium Total Bilirubin AST ALT Alkaline Phosphatase Ammonia Total Creatine Kinase CK-MB (CK-2) CK-MB (CK-2) Rel Index Total Protein Albumin Urine WBC (Auto) Vancomycin Trough Salicylates Acetaminophen Plasma/Serum Alcohol Crossmatch 12/27/19 12/27/19 12/27/19 05:45 11:45 17:29 WBC RBC Hgb Hct MCH RDW Plt Count Lymph % (Auto) [place] % (Auto) [place] # Baso # Seg Neutrophils % Seg Neuts % (Manual) Lymphocytes % (Manual) Monocytes % (Manual) Seg Neutrophils # Seg Neutrophils # Man Lymphocytes # (Manual) Monocytes # (Manual) Eosinophils # (Manual) Basophils # (Manual) PT INR APTT ABG pH ABG pO2 ABG HCO3 ABG O2 Saturation ABG Base Excess ABG Hemoglobin Oxyhemoglobin Sodium Potassium Chloride Carbon Dioxide BUN Creatinine Glucose POC Glucose 131 H 123 H 134 H Lactic Acid Calcium Ionized Calcium Phosphorus Magnesium Total Bilirubin AST ALT Alkaline Phosphatase Ammonia Total Creatine Kinase CK-MB (CK-2) CK-MB (CK-2) Rel Index Total Protein Albumin Urine WBC (Auto) Vancomycin Trough Salicylates Acetaminophen Plasma/Serum Alcohol Crossmatch 12/28/19 12/28/19 12/28/19 00:12 05:14 11:53 WBC RBC Hgb Hct MCH RDW Plt Count Lymph % (Auto) [place] % (Auto) [place] # Baso # Seg Neutrophils % Seg Neuts % (Manual) Lymphocytes % (Manual) Monocytes % (Manual) Seg Neutrophils # Seg Neutrophils # Man Lymphocytes # (Manual) Monocytes # (Manual) Eosinophils # (Manual) Basophils # (Manual) PT INR APTT ABG pH ABG pO2 ABG HCO3 ABG O2 Saturation ABG Base Excess ABG Hemoglobin Oxyhemoglobin Sodium Potassium Chloride Carbon Dioxide BUN Creatinine Glucose POC Glucose 138 H 130 H 146 H Lactic Acid Calcium Ionized Calcium Phosphorus Magnesium Total Bilirubin AST ALT Alkaline Phosphatase Ammonia Total Creatine Kinase CK-MB (CK-2) CK-MB (CK-2) Rel Index Total Protein Albumin Urine WBC (Auto) Vancomycin Trough Salicylates Acetaminophen Plasma/Serum Alcohol Crossmatch 12/28/19 12/29/19 12/29/19 17:39 00:01 18:11 WBC RBC Hgb Hct MCH RDW Plt Count Lymph % (Auto) [place] % (Auto) [place] # Baso # Seg Neutrophils % Seg Neuts % (Manual) Lymphocytes % (Manual) Monocytes % (Manual) Seg Neutrophils # Seg Neutrophils # Man Lymphocytes # (Manual) Monocytes # (Manual) Eosinophils # (Manual) Basophils # (Manual) PT INR APTT ABG pH ABG pO2 ABG HCO3 ABG O2 Saturation ABG Base Excess ABG Hemoglobin Oxyhemoglobin Sodium Potassium Chloride Carbon Dioxide BUN Creatinine Glucose POC Glucose 117 H 139 H 130 H Lactic Acid Calcium Ionized Calcium Phosphorus Magnesium Total Bilirubin AST ALT Alkaline Phosphatase Ammonia Total Creatine Kinase CK-MB (CK-2) CK-MB (CK-2) Rel Index Total Protein Albumin Urine WBC (Auto) Vancomycin Trough Salicylates Acetaminophen Plasma/Serum Alcohol Crossmatch 12/29/19 12/30/19 12/30/19 23:09 00:02 01:06 WBC 16.7 H RBC 2.91 L Hgb 8.2 L Hct 25.4 L MCH RDW 18.7 H Plt Count 708 H Lymph % (Auto) 9.4 L [place] % (Auto) [place] # 0.9 H Baso # Seg Neutrophils % 83.5 H Seg Neuts % (Manual) Lymphocytes % (Manual) Monocytes % (Manual) Seg Neutrophils # 14.0 H Seg Neutrophils # Man Lymphocytes # (Manual) Monocytes # (Manual) Eosinophils # (Manual) Basophils # (Manual) PT INR APTT ABG pH ABG pO2 ABG HCO3 ABG O2 Saturation ABG Base Excess ABG Hemoglobin Oxyhemoglobin Sodium Potassium Chloride Carbon Dioxide BUN Creatinine Glucose POC Glucose 120 H 114 H Lactic Acid Calcium Ionized Calcium Phosphorus Magnesium Total Bilirubin AST ALT Alkaline Phosphatase Ammonia Total Creatine Kinase CK-MB (CK-2) CK-MB (CK-2) Rel Index Total Protein Albumin Urine WBC (Auto) Vancomycin Trough Salicylates Acetaminophen Plasma/Serum Alcohol Crossmatch 12/30/19 12/30/19 12/30/19 01:06 04:23 05:18 WBC RBC Hgb Hct MCH RDW Plt Count Lymph % (Auto) [place] % (Auto) [place] # Baso # Seg Neutrophils % Seg Neuts % (Manual) Lymphocytes % (Manual) Monocytes % (Manual) Seg Neutrophils # Seg Neutrophils # Man Lymphocytes # (Manual) Monocytes # (Manual) Eosinophils # (Manual) Basophils # (Manual) PT INR APTT ABG pH ABG pO2 ABG HCO3 ABG O2 Saturation ABG Base Excess ABG Hemoglobin 8.3 L Oxyhemoglobin Sodium Potassium Chloride Carbon Dioxide BUN 70 H Creatinine Glucose 122 H POC Glucose 130 H Lactic Acid Calcium Ionized Calcium Phosphorus Magnesium Total Bilirubin AST ALT Alkaline Phosphatase Ammonia Total Creatine Kinase CK-MB (CK-2) CK-MB (CK-2) Rel Index Total Protein Albumin Urine WBC (Auto) Vancomycin Trough Salicylates Acetaminophen Plasma/Serum Alcohol Crossmatch 12/30/19 12/30/19 12/30/19 05:40 12:17 17:43 WBC RBC Hgb Hct MCH RDW Plt Count Lymph % (Auto) [place] % (Auto) [place] # Baso # Seg Neutrophils % Seg Neuts % (Manual) Lymphocytes % (Manual) Monocytes % (Manual) Seg Neutrophils # Seg Neutrophils # Man Lymphocytes # (Manual) Monocytes # (Manual) Eosinophils # (Manual) Basophils # (Manual) PT INR APTT ABG pH ABG pO2 ABG HCO3 ABG O2 Saturation ABG Base Excess ABG Hemoglobin Oxyhemoglobin Sodium Potassium Chloride Carbon Dioxide BUN Creatinine Glucose POC Glucose 135 H 132 H 118 H Lactic Acid Calcium Ionized Calcium Phosphorus Magnesium Total Bilirubin AST ALT Alkaline Phosphatase Ammonia Total Creatine Kinase CK-MB (CK-2) CK-MB (CK-2) Rel Index Total Protein Albumin Urine WBC (Auto) Vancomycin Trough Salicylates Acetaminophen Plasma/Serum Alcohol Crossmatch 12/30/19 12/31/19 12/31/19 23:29 05:19 17:50 WBC RBC Hgb Hct MCH RDW Plt Count Lymph % (Auto) [place] % (Auto) [place] # Baso # Seg Neutrophils % Seg Neuts % (Manual) Lymphocytes % (Manual) Monocytes % (Manual) Seg Neutrophils # Seg Neutrophils # Man Lymphocytes # (Manual) Monocytes # (Manual) Eosinophils # (Manual) Basophils # (Manual) PT INR APTT ABG pH ABG pO2 ABG HCO3 ABG O2 Saturation ABG Base Excess ABG Hemoglobin Oxyhemoglobin Sodium Potassium Chloride Carbon Dioxide BUN Creatinine Glucose POC Glucose 114 H 109 H 116 H Lactic Acid Calcium Ionized Calcium Phosphorus Magnesium Total Bilirubin AST ALT Alkaline Phosphatase Ammonia Total Creatine Kinase CK-MB (CK-2) CK-MB (CK-2) Rel Index Total Protein Albumin Urine WBC (Auto) Vancomycin Trough Salicylates Acetaminophen Plasma/Serum Alcohol Crossmatch 01/01/20 01/01/20 01/01/20 00:10 05:19 12:02 WBC RBC Hgb Hct MCH RDW Plt Count Lymph % (Auto) [place] % (Auto) [place] # Baso # Seg Neutrophils % Seg Neuts % (Manual) Lymphocytes % (Manual) Monocytes % (Manual) Seg Neutrophils # Seg Neutrophils # Man Lymphocytes # (Manual) Monocytes # (Manual) Eosinophils # (Manual) Basophils # (Manual) PT INR APTT ABG pH ABG pO2 ABG HCO3 ABG O2 Saturation ABG Base Excess ABG Hemoglobin Oxyhemoglobin Sodium Potassium Chloride Carbon Dioxide BUN Creatinine Glucose POC Glucose 131 H 122 H 136 H Lactic Acid Calcium Ionized Calcium Phosphorus Magnesium Total Bilirubin AST ALT Alkaline Phosphatase Ammonia Total Creatine Kinase CK-MB (CK-2) CK-MB (CK-2) Rel Index Total Protein Albumin Urine WBC (Auto) Vancomycin Trough Salicylates Acetaminophen Plasma/Serum Alcohol Crossmatch 01/02/20 01/02/20 01/02/20 00:24 05:36 11:41 WBC RBC Hgb Hct MCH RDW Plt Count Lymph % (Auto) [place] % (Auto) [place] # Baso # Seg Neutrophils % Seg Neuts % (Manual) Lymphocytes % (Manual) Monocytes % (Manual) Seg Neutrophils # Seg Neutrophils # Man Lymphocytes # (Manual) Monocytes # (Manual) Eosinophils # (Manual) Basophils # (Manual) PT INR APTT ABG pH ABG pO2 ABG HCO3 ABG O2 Saturation ABG Base Excess ABG Hemoglobin Oxyhemoglobin Sodium Potassium Chloride Carbon Dioxide BUN Creatinine Glucose POC Glucose 119 H 109 H 125 H Lactic Acid Calcium Ionized Calcium Phosphorus Magnesium Total Bilirubin AST ALT Alkaline Phosphatase Ammonia Total Creatine Kinase CK-MB (CK-2) CK-MB (CK-2) Rel Index Total Protein Albumin Urine WBC (Auto) Vancomycin Trough Salicylates Acetaminophen Plasma/Serum Alcohol Crossmatch 01/02/20 01/03/20 01/03/20 17:49 05:29 12:13 WBC RBC Hgb Hct MCH RDW Plt Count Lymph % (Auto) [place] % (Auto) [place] # Baso # Seg Neutrophils % Seg Neuts % (Manual) Lymphocytes % (Manual) Monocytes % (Manual) Seg Neutrophils # Seg Neutrophils # Man Lymphocytes # (Manual) Monocytes # (Manual) Eosinophils # (Manual) Basophils # (Manual) PT INR APTT ABG pH ABG pO2 ABG HCO3 ABG O2 Saturation ABG Base Excess ABG Hemoglobin Oxyhemoglobin Sodium Potassium Chloride Carbon Dioxide BUN Creatinine Glucose POC Glucose 130 H 132 H 113 H Lactic Acid Calcium Ionized Calcium Phosphorus Magnesium Total Bilirubin AST ALT Alkaline Phosphatase Ammonia Total Creatine Kinase CK-MB (CK-2) CK-MB (CK-2) Rel Index Total Protein Albumin Urine WBC (Auto) Vancomycin Trough Salicylates Acetaminophen Plasma/Serum Alcohol Crossmatch 01/03/20 01/04/20 01/04/20 17:32 00:19 05:26 WBC RBC Hgb Hct MCH RDW Plt Count Lymph % (Auto) [place] % (Auto) [place] # Baso # Seg Neutrophils % Seg Neuts % (Manual) Lymphocytes % (Manual) Monocytes % (Manual) Seg Neutrophils # Seg Neutrophils # Man Lymphocytes # (Manual) Monocytes # (Manual) Eosinophils # (Manual) Basophils # (Manual) PT INR APTT ABG pH ABG pO2 ABG HCO3 ABG O2 Saturation ABG Base Excess ABG Hemoglobin Oxyhemoglobin Sodium Potassium Chloride Carbon Dioxide BUN Creatinine Glucose POC Glucose 127 H 141 H 129 H Lactic Acid Calcium Ionized Calcium Phosphorus Magnesium Total Bilirubin AST ALT Alkaline Phosphatase Ammonia Total Creatine Kinase CK-MB (CK-2) CK-MB (CK-2) Rel Index Total Protein Albumin Urine WBC (Auto) Vancomycin Trough Salicylates Acetaminophen Plasma/Serum Alcohol Crossmatch 01/04/20 01/04/20 01/05/20 11:39 17:29 05:22 WBC RBC Hgb Hct MCH RDW Plt Count Lymph % (Auto) [place] % (Auto) [place] # Baso # Seg Neutrophils % Seg Neuts % (Manual) Lymphocytes % (Manual) Monocytes % (Manual) Seg Neutrophils # Seg Neutrophils # Man Lymphocytes # (Manual) Monocytes # (Manual) Eosinophils # (Manual) Basophils # (Manual) PT INR APTT ABG pH ABG pO2 ABG HCO3 ABG O2 Saturation ABG Base Excess ABG Hemoglobin Oxyhemoglobin Sodium Potassium Chloride Carbon Dioxide BUN Creatinine Glucose POC Glucose 167 H 132 H 121 H Lactic Acid Calcium Ionized Calcium Phosphorus Magnesium Total Bilirubin AST ALT Alkaline Phosphatase Ammonia Total Creatine Kinase CK-MB (CK-2) CK-MB (CK-2) Rel Index Total Protein Albumin Urine WBC (Auto) Vancomycin Trough Salicylates Acetaminophen Plasma/Serum Alcohol Crossmatch 01/05/20 01/05/20 01/05/20 12:25 17:40 18:06 WBC RBC Hgb Hct MCH RDW Plt Count Lymph % (Auto) [place] % (Auto) [place] # Baso # Seg Neutrophils % Seg Neuts % (Manual) Lymphocytes % (Manual) Monocytes % (Manual) Seg Neutrophils # Seg Neutrophils # Man Lymphocytes # (Manual) Monocytes # (Manual) Eosinophils # (Manual) Basophils # (Manual) PT INR APTT ABG pH 7.472 H ABG pO2 99.2 H ABG HCO3 ABG O2 Saturation ABG Base Excess ABG Hemoglobin 7.8 L Oxyhemoglobin Sodium Potassium Chloride Carbon Dioxide BUN Creatinine Glucose POC Glucose 106 H 110 H Lactic Acid Calcium Ionized Calcium Phosphorus Magnesium Total Bilirubin AST ALT Alkaline Phosphatase Ammonia Total Creatine Kinase CK-MB (CK-2) CK-MB (CK-2) Rel Index Total Protein Albumin Urine WBC (Auto) Vancomycin Trough Salicylates Acetaminophen Plasma/Serum Alcohol Crossmatch 01/06/20 01/06/20 01/06/20 00:11 05:16 11:30 WBC RBC Hgb Hct MCH RDW Plt Count Lymph % (Auto) [place] % (Auto) [place] # Baso # Seg Neutrophils % Seg Neuts % (Manual) Lymphocytes % (Manual) Monocytes % (Manual) Seg Neutrophils # Seg Neutrophils # Man Lymphocytes # (Manual) Monocytes # (Manual) Eosinophils # (Manual) Basophils # (Manual) PT INR APTT ABG pH ABG pO2 ABG HCO3 ABG O2 Saturation ABG Base Excess ABG Hemoglobin Oxyhemoglobin Sodium Potassium Chloride Carbon Dioxide BUN Creatinine Glucose POC Glucose 108 H 124 H 125 H Lactic Acid Calcium Ionized Calcium Phosphorus Magnesium Total Bilirubin AST ALT Alkaline Phosphatase Ammonia Total Creatine Kinase CK-MB (CK-2) CK-MB (CK-2) Rel Index Total Protein Albumin Urine WBC (Auto) Vancomycin Trough Salicylates Acetaminophen Plasma/Serum Alcohol Crossmatch 01/06/20 01/06/20 01/07/20 17:53 23:51 04:12 WBC 16.5 H RBC 3.29 L Hgb 9.3 L Hct 28.1 L MCH RDW 18.2 H Plt Count 526 H Lymph % (Auto) 8.4 L [place] % (Auto) [place] # 1.0 H Baso # Seg Neutrophils % 84.4 H Seg Neuts % (Manual) Lymphocytes % (Manual) Monocytes % (Manual) Seg Neutrophils # 13.9 H Seg Neutrophils # Man Lymphocytes # (Manual) Monocytes # (Manual) Eosinophils # (Manual) Basophils # (Manual) PT INR APTT ABG pH ABG pO2 ABG HCO3 ABG O2 Saturation ABG Base Excess ABG Hemoglobin Oxyhemoglobin Sodium Potassium Chloride Carbon Dioxide BUN Creatinine Glucose POC Glucose 166 H 128 H Lactic Acid Calcium Ionized Calcium Phosphorus Magnesium Total Bilirubin AST ALT Alkaline Phosphatase Ammonia Total Creatine Kinase CK-MB (CK-2) CK-MB (CK-2) Rel Index Total Protein Albumin Urine WBC (Auto) Vancomycin Trough Salicylates Acetaminophen Plasma/Serum Alcohol Crossmatch 01/07/20 01/07/20 01/07/20 04:12 04:45 11:51 WBC RBC Hgb Hct MCH RDW Plt Count Lymph % (Auto) [place] % (Auto) [place] # Baso # Seg Neutrophils % Seg Neuts % (Manual) Lymphocytes % (Manual) Monocytes % (Manual) Seg Neutrophils # Seg Neutrophils # Man Lymphocytes # (Manual) Monocytes # (Manual) Eosinophils # (Manual) Basophils # (Manual) PT INR APTT ABG pH ABG pO2 ABG HCO3 ABG O2 Saturation ABG Base Excess ABG Hemoglobin Oxyhemoglobin Sodium 136 L Potassium Chloride Carbon Dioxide 21 L BUN 44 H Creatinine 0.6 L Glucose 124 H POC Glucose 134 H 138 H Lactic Acid Calcium Ionized Calcium Phosphorus Magnesium Total Bilirubin AST ALT Alkaline Phosphatase Ammonia Total Creatine Kinase CK-MB (CK-2) CK-MB (CK-2) Rel Index Total Protein Albumin Urine WBC (Auto) Vancomycin Trough Salicylates Acetaminophen Plasma/Serum Alcohol Crossmatch 01/07/20 01/08/20 01/08/20 17:36 00:33 05:29 WBC RBC Hgb Hct MCH RDW Plt Count Lymph % (Auto) [place] % (Auto) [place] # Baso # Seg Neutrophils % Seg Neuts % (Manual) Lymphocytes % (Manual) Monocytes % (Manual) Seg Neutrophils # Seg Neutrophils # Man Lymphocytes # (Manual) Monocytes # (Manual) Eosinophils # (Manual) Basophils # (Manual) PT INR APTT ABG pH ABG pO2 ABG HCO3 ABG O2 Saturation ABG Base Excess ABG Hemoglobin Oxyhemoglobin Sodium Potassium Chloride Carbon Dioxide BUN Creatinine Glucose POC Glucose 128 H 119 H 124 H Lactic Acid Calcium Ionized Calcium Phosphorus Magnesium Total Bilirubin AST ALT Alkaline Phosphatase Ammonia Total Creatine Kinase CK-MB (CK-2) CK-MB (CK-2) Rel Index Total Protein Albumin Urine WBC (Auto) Vancomycin Trough Salicylates Acetaminophen Plasma/Serum Alcohol Crossmatch 01/08/20 01/08/20 01/08/20 12:51 20:25 23:22 WBC RBC Hgb Hct MCH RDW Plt Count Lymph % (Auto) [place] % (Auto) [place] # Baso # Seg Neutrophils % Seg Neuts % (Manual) Lymphocytes % (Manual) Monocytes % (Manual) Seg Neutrophils # Seg Neutrophils # Man Lymphocytes # (Manual) Monocytes # (Manual) Eosinophils # (Manual) Basophils # (Manual) PT INR APTT ABG pH ABG pO2 132.2 H ABG HCO3 ABG O2 Saturation ABG Base Excess ABG Hemoglobin Oxyhemoglobin Sodium Potassium Chloride Carbon Dioxide BUN Creatinine Glucose POC Glucose 128 H 127 H Lactic Acid Calcium Ionized Calcium Phosphorus Magnesium Total Bilirubin AST ALT Alkaline Phosphatase Ammonia Total Creatine Kinase CK-MB (CK-2) CK-MB (CK-2) Rel Index Total Protein Albumin Urine WBC (Auto) Vancomycin Trough Salicylates Acetaminophen Plasma/Serum Alcohol Crossmatch 01/09/20 01/09/20 01/09/20 05:48 08:51 11:29 WBC RBC Hgb Hct MCH RDW Plt Count Lymph % (Auto) [place] % (Auto) [place] # Baso # Seg Neutrophils % Seg Neuts % (Manual) Lymphocytes % (Manual) Monocytes % (Manual) Seg Neutrophils # Seg Neutrophils # Man Lymphocytes # (Manual) Monocytes # (Manual) Eosinophils # (Manual) Basophils # (Manual) PT INR APTT ABG pH ABG pO2 94.3 H ABG HCO3 ABG O2 Saturation ABG Base Excess ABG Hemoglobin 9.5 L Oxyhemoglobin Sodium Potassium Chloride Carbon Dioxide BUN Creatinine Glucose POC Glucose 120 H 112 H Lactic Acid Calcium Ionized Calcium Phosphorus Magnesium Total Bilirubin AST ALT Alkaline Phosphatase Ammonia Total Creatine Kinase CK-MB (CK-2) CK-MB (CK-2) Rel Index Total Protein Albumin Urine WBC (Auto) Vancomycin Trough Salicylates Acetaminophen Plasma/Serum Alcohol Crossmatch 01/09/20 01/10/20 01/10/20 17:57 05:17 12:28 WBC RBC Hgb Hct MCH RDW Plt Count Lymph % (Auto) [place] % (Auto) [place] # Baso # Seg Neutrophils % Seg Neuts % (Manual) Lymphocytes % (Manual) Monocytes % (Manual) Seg Neutrophils # Seg Neutrophils # Man Lymphocytes # (Manual) Monocytes # (Manual) Eosinophils # (Manual) Basophils # (Manual) PT INR APTT ABG pH ABG pO2 ABG HCO3 ABG O2 Saturation ABG Base Excess ABG Hemoglobin Oxyhemoglobin Sodium Potassium Chloride Carbon Dioxide BUN Creatinine Glucose POC Glucose 122 H 115 H 116 H Lactic Acid Calcium Ionized Calcium Phosphorus Magnesium Total Bilirubin AST ALT Alkaline Phosphatase Ammonia Total Creatine Kinase CK-MB (CK-2) CK-MB (CK-2) Rel Index Total Protein Albumin Urine WBC (Auto) Vancomycin Trough Salicylates Acetaminophen Plasma/Serum Alcohol Crossmatch 01/10/20 01/10/20 01/11/20 18:25 23:47 06:05 WBC RBC Hgb Hct MCH RDW Plt Count Lymph % (Auto) [place] % (Auto) [place] # Baso # Seg Neutrophils % Seg Neuts % (Manual) Lymphocytes % (Manual) Monocytes % (Manual) Seg Neutrophils # Seg Neutrophils # Man Lymphocytes # (Manual) Monocytes # (Manual) Eosinophils # (Manual) Basophils # (Manual) PT INR APTT ABG pH ABG pO2 ABG HCO3 ABG O2 Saturation ABG Base Excess ABG Hemoglobin Oxyhemoglobin Sodium Potassium Chloride Carbon Dioxide BUN Creatinine Glucose POC Glucose 123 H 115 H 151 H Lactic Acid Calcium Ionized Calcium Phosphorus Magnesium Total Bilirubin AST ALT Alkaline Phosphatase Ammonia Total Creatine Kinase CK-MB (CK-2) CK-MB (CK-2) Rel Index Total Protein Albumin Urine WBC (Auto) Vancomycin Trough Salicylates Acetaminophen Plasma/Serum Alcohol Crossmatch 01/11/20 01/11/20 01/11/20 07:00 07:00 12:27 WBC 11.8 H RBC 3.40 L Hgb 9.4 L Hct 29.3 L MCH RDW 18.1 H Plt Count 549 H Lymph % (Auto) [place] % (Auto) 9.1 H [place] # 1.1 H Baso # Seg Neutrophils % 73.3 H Seg Neuts % (Manual) Lymphocytes % (Manual) Monocytes % (Manual) Seg Neutrophils # 8.7 H Seg Neutrophils # Man Lymphocytes # (Manual) Monocytes # (Manual) Eosinophils # (Manual) Basophils # (Manual) PT INR APTT ABG pH ABG pO2 ABG HCO3 ABG O2 Saturation ABG Base Excess ABG Hemoglobin Oxyhemoglobin Sodium 134 L Potassium Chloride 97.7 L Carbon Dioxide 21 L BUN 38 H Creatinine 0.5 L Glucose 168 H POC Glucose 117 H Lactic Acid Calcium 10.5 H Ionized Calcium Phosphorus Magnesium Total Bilirubin AST ALT Alkaline Phosphatase Ammonia Total Creatine Kinase CK-MB (CK-2) CK-MB (CK-2) Rel Index Total Protein Albumin Urine WBC (Auto) Vancomycin Trough Salicylates Acetaminophen Plasma/Serum Alcohol Crossmatch 01/11/20 01/12/20 01/12/20 18:19 00:53 05:24 WBC RBC Hgb Hct MCH RDW Plt Count Lymph % (Auto) [place] % (Auto) [place] # Baso # Seg Neutrophils % Seg Neuts % (Manual) Lymphocytes % (Manual) Monocytes % (Manual) Seg Neutrophils # Seg Neutrophils # Man Lymphocytes # (Manual) Monocytes # (Manual) Eosinophils # (Manual) Basophils # (Manual) PT INR APTT ABG pH ABG pO2 ABG HCO3 ABG O2 Saturation ABG Base Excess ABG Hemoglobin Oxyhemoglobin Sodium Potassium Chloride Carbon Dioxide BUN Creatinine Glucose POC Glucose 126 H 126 H 128 H Lactic Acid Calcium Ionized Calcium Phosphorus Magnesium Total Bilirubin AST ALT Alkaline Phosphatase Ammonia Total Creatine Kinase CK-MB (CK-2) CK-MB (CK-2) Rel Index Total Protein Albumin Urine WBC (Auto) Vancomycin Trough Salicylates Acetaminophen Plasma/Serum Alcohol Crossmatch 01/12/20 01/12/20 01/13/20 13:39 18:02 00:27 WBC RBC Hgb Hct MCH RDW Plt Count Lymph % (Auto) [place] % (Auto) [place] # Baso # Seg Neutrophils % Seg Neuts % (Manual) Lymphocytes % (Manual) Monocytes % (Manual) Seg Neutrophils # Seg Neutrophils # Man Lymphocytes # (Manual) Monocytes # (Manual) Eosinophils # (Manual) Basophils # (Manual) PT INR APTT ABG pH ABG pO2 ABG HCO3 ABG O2 Saturation ABG Base Excess ABG Hemoglobin Oxyhemoglobin Sodium Potassium Chloride Carbon Dioxide BUN Creatinine Glucose POC Glucose 146 H 125 H 131 H Lactic Acid Calcium Ionized Calcium Phosphorus Magnesium Total Bilirubin AST ALT Alkaline Phosphatase Ammonia Total Creatine Kinase CK-MB (CK-2) CK-MB (CK-2) Rel Index Total Protein Albumin Urine WBC (Auto) Vancomycin Trough Salicylates Acetaminophen Plasma/Serum Alcohol Crossmatch 01/13/20 01/13/20 01/13/20 05:44 11:54 17:18 WBC RBC Hgb Hct MCH RDW Plt Count Lymph % (Auto) [place] % (Auto) [place] # Baso # Seg Neutrophils % Seg Neuts % (Manual) Lymphocytes % (Manual) Monocytes % (Manual) Seg Neutrophils # Seg Neutrophils # Man Lymphocytes # (Manual) Monocytes # (Manual) Eosinophils # (Manual) Basophils # (Manual) PT INR APTT ABG pH ABG pO2 ABG HCO3 ABG O2 Saturation ABG Base Excess ABG Hemoglobin Oxyhemoglobin Sodium Potassium Chloride Carbon Dioxide BUN Creatinine Glucose POC Glucose 148 H 140 H 130 H Lactic Acid Calcium Ionized Calcium Phosphorus Magnesium Total Bilirubin AST ALT Alkaline Phosphatase Ammonia Total Creatine Kinase CK-MB (CK-2) CK-MB (CK-2) Rel Index Total Protein Albumin Urine WBC (Auto) Vancomycin Trough Salicylates Acetaminophen Plasma/Serum Alcohol Crossmatch 01/14/20 01/14/20 01/14/20 00:16 05:45 12:19 WBC RBC Hgb Hct MCH RDW Plt Count Lymph % (Auto) [place] % (Auto) [place] # Baso # Seg Neutrophils % Seg Neuts % (Manual) Lymphocytes % (Manual) Monocytes % (Manual) Seg Neutrophils # Seg Neutrophils # Man Lymphocytes # (Manual) Monocytes # (Manual) Eosinophils # (Manual) Basophils # (Manual) PT INR APTT ABG pH ABG pO2 ABG HCO3 ABG O2 Saturation ABG Base Excess ABG Hemoglobin Oxyhemoglobin Sodium Potassium Chloride Carbon Dioxide BUN Creatinine Glucose POC Glucose 125 H 146 H 147 H Lactic Acid Calcium Ionized Calcium Phosphorus Magnesium Total Bilirubin AST ALT Alkaline Phosphatase Ammonia Total Creatine Kinase CK-MB (CK-2) CK-MB (CK-2) Rel Index Total Protein Albumin Urine WBC (Auto) Vancomycin Trough Salicylates Acetaminophen Plasma/Serum Alcohol Crossmatch 01/14/20 01/14/20 01/15/20 18:10 23:54 05:14 WBC RBC Hgb Hct MCH RDW Plt Count Lymph % (Auto) [place] % (Auto) [place] # Baso # Seg Neutrophils % Seg Neuts % (Manual) Lymphocytes % (Manual) Monocytes % (Manual) Seg Neutrophils # Seg Neutrophils # Man Lymphocytes # (Manual) Monocytes # (Manual) Eosinophils # (Manual) Basophils # (Manual) PT INR APTT ABG pH ABG pO2 ABG HCO3 ABG O2 Saturation ABG Base Excess ABG Hemoglobin Oxyhemoglobin Sodium Potassium Chloride Carbon Dioxide BUN Creatinine Glucose POC Glucose 136 H 109 H 111 H Lactic Acid Calcium Ionized Calcium Phosphorus Magnesium Total Bilirubin AST ALT Alkaline Phosphatase Ammonia Total Creatine Kinase CK-MB (CK-2) CK-MB (CK-2) Rel Index Total Protein Albumin Urine WBC (Auto) Vancomycin Trough Salicylates Acetaminophen Plasma/Serum Alcohol Crossmatch 01/15/20 01/15/20 01/16/20 12:34 23:25 05:06 WBC RBC Hgb Hct MCH RDW Plt Count Lymph % (Auto) [place] % (Auto) [place] # Baso # Seg Neutrophils % Seg Neuts % (Manual) Lymphocytes % (Manual) Monocytes % (Manual) Seg Neutrophils # Seg Neutrophils # Man Lymphocytes # (Manual) Monocytes # (Manual) Eosinophils # (Manual) Basophils # (Manual) PT INR APTT ABG pH ABG pO2 ABG HCO3 ABG O2 Saturation ABG Base Excess ABG Hemoglobin Oxyhemoglobin Sodium Potassium Chloride Carbon Dioxide BUN Creatinine Glucose POC Glucose 131 H 120 H 121 H Lactic Acid Calcium Ionized Calcium Phosphorus Magnesium Total Bilirubin AST ALT Alkaline Phosphatase Ammonia Total Creatine Kinase CK-MB (CK-2) CK-MB (CK-2) Rel Index Total Protein Albumin Urine WBC (Auto) Vancomycin Trough Salicylates Acetaminophen Plasma/Serum Alcohol Crossmatch 01/16/20 01/16/20 01/17/20 12:15 23:46 05:32 WBC 13.6 H RBC 3.27 L Hgb 9.3 L Hct 28.5 L MCH RDW 17.0 H Plt Count 490 H Lymph % (Auto) 13.1 L [place] % (Auto) [place] # 1.0 H Baso # Seg Neutrophils % 77.5 H Seg Neuts % (Manual) Lymphocytes % (Manual) Monocytes % (Manual) Seg Neutrophils # 10.5 H Seg Neutrophils # Man Lymphocytes # (Manual) Monocytes # (Manual) Eosinophils # (Manual) Basophils # (Manual) PT INR APTT ABG pH ABG pO2 ABG HCO3 ABG O2 Saturation ABG Base Excess ABG Hemoglobin Oxyhemoglobin Sodium Potassium Chloride Carbon Dioxide BUN Creatinine Glucose POC Glucose 152 H 107 H Lactic Acid Calcium Ionized Calcium Phosphorus Magnesium Total Bilirubin AST ALT Alkaline Phosphatase Ammonia Total Creatine Kinase CK-MB (CK-2) CK-MB (CK-2) Rel Index Total Protein Albumin Urine WBC (Auto) Vancomycin Trough Salicylates Acetaminophen Plasma/Serum Alcohol Crossmatch 01/17/20 01/17/20 01/17/20 06:47 12:16 17:21 WBC RBC Hgb Hct MCH RDW Plt Count Lymph % (Auto) [place] % (Auto) [place] # Baso # Seg Neutrophils % Seg Neuts % (Manual) Lymphocytes % (Manual) Monocytes % (Manual) Seg Neutrophils # Seg Neutrophils # Man Lymphocytes # (Manual) Monocytes # (Manual) Eosinophils # (Manual) Basophils # (Manual) PT INR APTT ABG pH ABG pO2 ABG HCO3 ABG O2 Saturation ABG Base Excess ABG Hemoglobin Oxyhemoglobin Sodium Potassium Chloride Carbon Dioxide BUN Creatinine Glucose POC Glucose 112 H 145 H 150 H Lactic Acid Calcium Ionized Calcium Phosphorus Magnesium Total Bilirubin AST ALT Alkaline Phosphatase Ammonia Total Creatine Kinase CK-MB (CK-2) CK-MB (CK-2) Rel Index Total Protein Albumin Urine WBC (Auto) Vancomycin Trough Salicylates Acetaminophen Plasma/Serum Alcohol Crossmatch 01/17/20 01/18/20 01/18/20 23:34 05:47 12:43 WBC RBC Hgb Hct MCH RDW Plt Count Lymph % (Auto) [place] % (Auto) [place] # Baso # Seg Neutrophils % Seg Neuts % (Manual) Lymphocytes % (Manual) Monocytes % (Manual) Seg Neutrophils # Seg Neutrophils # Man Lymphocytes # (Manual) Monocytes # (Manual) Eosinophils # (Manual) Basophils # (Manual) PT INR APTT ABG pH ABG pO2 ABG HCO3 ABG O2 Saturation ABG Base Excess ABG Hemoglobin Oxyhemoglobin Sodium Potassium Chloride Carbon Dioxide BUN Creatinine Glucose POC Glucose 160 H 130 H 124 H Lactic Acid Calcium Ionized Calcium Phosphorus Magnesium Total Bilirubin AST ALT Alkaline Phosphatase Ammonia Total Creatine Kinase CK-MB (CK-2) CK-MB (CK-2) Rel Index Total Protein Albumin Urine WBC (Auto) Vancomycin Trough Salicylates Acetaminophen Plasma/Serum Alcohol Crossmatch 01/18/20 01/19/20 01/19/20 18:26 00:14 06:24 WBC RBC Hgb Hct MCH RDW Plt Count Lymph % (Auto) [place] % (Auto) [place] # Baso # Seg Neutrophils % Seg Neuts % (Manual) Lymphocytes % (Manual) Monocytes % (Manual) Seg Neutrophils # Seg Neutrophils # Man Lymphocytes # (Manual) Monocytes # (Manual) Eosinophils # (Manual) Basophils # (Manual) PT INR APTT ABG pH ABG pO2 ABG HCO3 ABG O2 Saturation ABG Base Excess ABG Hemoglobin Oxyhemoglobin Sodium Potassium Chloride Carbon Dioxide BUN Creatinine Glucose POC Glucose 119 H 114 H 144 H Lactic Acid Calcium Ionized Calcium Phosphorus Magnesium Total Bilirubin AST ALT Alkaline Phosphatase Ammonia Total Creatine Kinase CK-MB (CK-2) CK-MB (CK-2) Rel Index Total Protein Albumin Urine WBC (Auto) Vancomycin Trough Salicylates Acetaminophen Plasma/Serum Alcohol Crossmatch 01/19/20 01/19/20 01/20/20 12:24 17:50 12:06 WBC RBC Hgb Hct MCH RDW Plt Count Lymph % (Auto) [place] % (Auto) [place] # Baso # Seg Neutrophils % Seg Neuts % (Manual) Lymphocytes % (Manual) Monocytes % (Manual) Seg Neutrophils # Seg Neutrophils # Man Lymphocytes # (Manual) Monocytes # (Manual) Eosinophils # (Manual) Basophils # (Manual) PT INR APTT ABG pH ABG pO2 ABG HCO3 ABG O2 Saturation ABG Base Excess ABG Hemoglobin Oxyhemoglobin Sodium Potassium Chloride Carbon Dioxide BUN Creatinine Glucose POC Glucose 132 H 144 H 135 H Lactic Acid Calcium Ionized Calcium Phosphorus Magnesium Total Bilirubin AST ALT Alkaline Phosphatase Ammonia Total Creatine Kinase CK-MB (CK-2) CK-MB (CK-2) Rel Index Total Protein Albumin Urine WBC (Auto) Vancomycin Trough Salicylates Acetaminophen Plasma/Serum Alcohol Crossmatch 01/21/20 01/21/20 01/21/20 05:46 13:02 23:49 WBC RBC Hgb Hct MCH RDW Plt Count Lymph % (Auto) [place] % (Auto) [place] # Baso # Seg Neutrophils % Seg Neuts % (Manual) Lymphocytes % (Manual) Monocytes % (Manual) Seg Neutrophils # Seg Neutrophils # Man Lymphocytes # (Manual) Monocytes # (Manual) Eosinophils # (Manual) Basophils # (Manual) PT INR APTT ABG pH ABG pO2 ABG HCO3 ABG O2 Saturation ABG Base Excess ABG Hemoglobin Oxyhemoglobin Sodium Potassium Chloride Carbon Dioxide BUN Creatinine Glucose POC Glucose 114 H 136 H 120 H Lactic Acid Calcium Ionized Calcium Phosphorus Magnesium Total Bilirubin AST ALT Alkaline Phosphatase Ammonia Total Creatine Kinase CK-MB (CK-2) CK-MB (CK-2) Rel Index Total Protein Albumin Urine WBC (Auto) Vancomycin Trough Salicylates Acetaminophen Plasma/Serum Alcohol Crossmatch 01/22/20 01/22/20 01/22/20 05:41 11:44 16:31 WBC RBC Hgb Hct MCH RDW Plt Count Lymph % (Auto) [place] % (Auto) [place] # Baso # Seg Neutrophils % Seg Neuts % (Manual) Lymphocytes % (Manual) Monocytes % (Manual) Seg Neutrophils # Seg Neutrophils # Man Lymphocytes # (Manual) Monocytes # (Manual) Eosinophils # (Manual) Basophils # (Manual) PT INR APTT ABG pH ABG pO2 ABG HCO3 ABG O2 Saturation ABG Base Excess ABG Hemoglobin Oxyhemoglobin Sodium Potassium Chloride Carbon Dioxide BUN Creatinine Glucose POC Glucose 124 H 173 H 111 H Lactic Acid Calcium Ionized Calcium Phosphorus Magnesium Total Bilirubin AST ALT Alkaline Phosphatase Ammonia Total Creatine Kinase CK-MB (CK-2) CK-MB (CK-2) Rel Index Total Protein Albumin Urine WBC (Auto) Vancomycin Trough Salicylates Acetaminophen Plasma/Serum Alcohol Crossmatch 01/22/20 01/23/20 01/23/20 23:25 05:15 12:15 WBC RBC Hgb Hct MCH RDW Plt Count Lymph % (Auto) [place] % (Auto) [place] # Baso # Seg Neutrophils % Seg Neuts % (Manual) Lymphocytes % (Manual) Monocytes % (Manual) Seg Neutrophils # Seg Neutrophils # Man Lymphocytes # (Manual) Monocytes # (Manual) Eosinophils # (Manual) Basophils # (Manual) PT INR APTT ABG pH ABG pO2 ABG HCO3 ABG O2 Saturation ABG Base Excess ABG Hemoglobin Oxyhemoglobin Sodium Potassium Chloride Carbon Dioxide BUN Creatinine Glucose POC Glucose 134 H 117 H 129 H Lactic Acid Calcium Ionized Calcium Phosphorus Magnesium Total Bilirubin AST ALT Alkaline Phosphatase Ammonia Total Creatine Kinase CK-MB (CK-2) CK-MB (CK-2) Rel Index Total Protein Albumin Urine WBC (Auto) Vancomycin Trough Salicylates Acetaminophen Plasma/Serum Alcohol Crossmatch 01/23/20 01/23/20 01/23/20 16:58 21:17 23:47 WBC RBC Hgb Hct MCH RDW Plt Count Lymph % (Auto) [place] % (Auto) [place] # Baso # Seg Neutrophils % Seg Neuts % (Manual) Lymphocytes % (Manual) Monocytes % (Manual) Seg Neutrophils # Seg Neutrophils # Man Lymphocytes # (Manual) Monocytes # (Manual) Eosinophils # (Manual) Basophils # (Manual) PT INR APTT ABG pH ABG pO2 ABG HCO3 ABG O2 Saturation ABG Base Excess ABG Hemoglobin Oxyhemoglobin Sodium Potassium Chloride Carbon Dioxide BUN Creatinine Glucose POC Glucose 156 H 185 H 156 H Lactic Acid Calcium Ionized Calcium Phosphorus Magnesium Total Bilirubin AST ALT Alkaline Phosphatase Ammonia Total Creatine Kinase CK-MB (CK-2) CK-MB (CK-2) Rel Index Total Protein Albumin Urine WBC (Auto) Vancomycin Trough Salicylates Acetaminophen Plasma/Serum Alcohol Crossmatch 01/24/20 01/24/20 01/24/20 04:47 04:47 05:59 WBC 17.8 H RBC 3.60 L Hgb Hct MCH RDW 16.2 H Plt Count 688 H Lymph % (Auto) 11.8 L [place] % (Auto) 7.5 H [place] # 1.3 H Baso # Seg Neutrophils % 79.9 H Seg Neuts % (Manual) Lymphocytes % (Manual) Monocytes % (Manual) Seg Neutrophils # 14.2 H Seg Neutrophils # Man Lymphocytes # (Manual) Monocytes # (Manual) Eosinophils # (Manual) Basophils # (Manual) PT INR APTT ABG pH ABG pO2 ABG HCO3 ABG O2 Saturation ABG Base Excess ABG Hemoglobin Oxyhemoglobin Sodium 131 L Potassium Chloride 91.2 L Carbon Dioxide BUN 22 H Creatinine 0.3 L Glucose 123 H POC Glucose 147 H Lactic Acid Calcium 10.9 H Ionized Calcium Phosphorus Magnesium Total Bilirubin AST ALT Alkaline Phosphatase Ammonia Total Creatine Kinase CK-MB (CK-2) CK-MB (CK-2) Rel Index Total Protein Albumin Urine WBC (Auto) Vancomycin Trough Salicylates Acetaminophen Plasma/Serum Alcohol Crossmatch 01/24/20 01/24/20 01/25/20 11:47 16:45 00:18 WBC RBC Hgb Hct MCH RDW Plt Count Lymph % (Auto) [place] % (Auto) [place] # Baso # Seg Neutrophils % Seg Neuts % (Manual) Lymphocytes % (Manual) Monocytes % (Manual) Seg Neutrophils # Seg Neutrophils # Man Lymphocytes # (Manual) Monocytes # (Manual) Eosinophils # (Manual) Basophils # (Manual) PT INR APTT ABG pH ABG pO2 ABG HCO3 ABG O2 Saturation ABG Base Excess ABG Hemoglobin Oxyhemoglobin Sodium Potassium Chloride Carbon Dioxide BUN Creatinine Glucose POC Glucose 114 H 108 H 119 H Lactic Acid Calcium Ionized Calcium Phosphorus Magnesium Total Bilirubin AST ALT Alkaline Phosphatase Ammonia Total Creatine Kinase CK-MB (CK-2) CK-MB (CK-2) Rel Index Total Protein Albumin Urine WBC (Auto) Vancomycin Trough Salicylates Acetaminophen Plasma/Serum Alcohol Crossmatch 01/25/20 01/25/20 01/25/20 07:18 11:58 16:56 WBC RBC Hgb Hct MCH RDW Plt Count Lymph % (Auto) [place] % (Auto) [place] # Baso # Seg Neutrophils % Seg Neuts % (Manual) Lymphocytes % (Manual) Monocytes % (Manual) Seg Neutrophils # Seg Neutrophils # Man Lymphocytes # (Manual) Monocytes # (Manual) Eosinophils # (Manual) Basophils # (Manual) PT INR APTT ABG pH ABG pO2 ABG HCO3 ABG O2 Saturation ABG Base Excess ABG Hemoglobin Oxyhemoglobin Sodium Potassium Chloride Carbon Dioxide BUN Creatinine Glucose POC Glucose 136 H 136 H 147 H Lactic Acid Calcium Ionized Calcium Phosphorus Magnesium Total Bilirubin AST ALT Alkaline Phosphatase Ammonia Total Creatine Kinase CK-MB (CK-2) CK-MB (CK-2) Rel Index Total Protein Albumin Urine WBC (Auto) Vancomycin Trough Salicylates Acetaminophen Plasma/Serum Alcohol Crossmatch 01/26/20 01/26/20 01/26/20 00:29 05:59 05:59 WBC 12.8 H RBC Hgb Hct MCH RDW 16.4 H Plt Count 743 H Lymph % (Auto) [place] % (Auto) [place] # 0.9 H Baso # Seg Neutrophils % 76.2 H Seg Neuts % (Manual) Lymphocytes % (Manual) Monocytes % (Manual) Seg Neutrophils # 9.8 H Seg Neutrophils # Man Lymphocytes # (Manual) Monocytes # (Manual) Eosinophils # (Manual) Basophils # (Manual) PT INR APTT ABG pH ABG pO2 ABG HCO3 ABG O2 Saturation ABG Base Excess ABG Hemoglobin Oxyhemoglobin Sodium 132 L Potassium Chloride 90.9 L Carbon Dioxide BUN 23 H Creatinine 0.4 L Glucose 122 H POC Glucose 107 H Lactic Acid Calcium 11.0 H Ionized Calcium Phosphorus Magnesium Total Bilirubin AST ALT Alkaline Phosphatase Ammonia Total Creatine Kinase CK-MB (CK-2) CK-MB (CK-2) Rel Index Total Protein Albumin Urine WBC (Auto) Vancomycin Trough Salicylates Acetaminophen Plasma/Serum Alcohol Crossmatch 01/26/20 01/26/20 01/26/20 06:27 12:06 16:49 WBC RBC Hgb Hct MCH RDW Plt Count Lymph % (Auto) [place] % (Auto) [place] # Baso # Seg Neutrophils % Seg Neuts % (Manual) Lymphocytes % (Manual) Monocytes % (Manual) Seg Neutrophils # Seg Neutrophils # Man Lymphocytes # (Manual) Monocytes # (Manual) Eosinophils # (Manual) Basophils # (Manual) PT INR APTT ABG pH ABG pO2 ABG HCO3 ABG O2 Saturation ABG Base Excess ABG Hemoglobin Oxyhemoglobin Sodium Potassium Chloride Carbon Dioxide BUN Creatinine Glucose POC Glucose 132 H 132 H 110 H Lactic Acid Calcium Ionized Calcium Phosphorus Magnesium Total Bilirubin AST ALT Alkaline Phosphatase Ammonia Total Creatine Kinase CK-MB (CK-2) CK-MB (CK-2) Rel Index Total Protein Albumin Urine WBC (Auto) Vancomycin Trough Salicylates Acetaminophen Plasma/Serum Alcohol Crossmatch 01/27/20 01/27/20 01/27/20 00:08 11:49 16:24 WBC RBC Hgb Hct MCH RDW Plt Count Lymph % (Auto) [place] % (Auto) [place] # Baso # Seg Neutrophils % Seg Neuts % (Manual) Lymphocytes % (Manual) Monocytes % (Manual) Seg Neutrophils # Seg Neutrophils # Man Lymphocytes # (Manual) Monocytes # (Manual) Eosinophils # (Manual) Basophils # (Manual) PT INR APTT ABG pH ABG pO2 ABG HCO3 ABG O2 Saturation ABG Base Excess ABG Hemoglobin Oxyhemoglobin Sodium Potassium Chloride Carbon Dioxide BUN Creatinine Glucose POC Glucose 107 H 119 H 129 H Lactic Acid Calcium Ionized Calcium Phosphorus Magnesium Total Bilirubin AST ALT Alkaline Phosphatase Ammonia Total Creatine Kinase CK-MB (CK-2) CK-MB (CK-2) Rel Index Total Protein Albumin Urine WBC (Auto) Vancomycin Trough Salicylates Acetaminophen Plasma/Serum Alcohol Crossmatch 01/27/20 01/28/20 01/28/20 18:28 01:00 06:22 WBC RBC Hgb Hct MCH RDW Plt Count Lymph % (Auto) [place] % (Auto) [place] # Baso # Seg Neutrophils % Seg Neuts % (Manual) Lymphocytes % (Manual) Monocytes % (Manual) Seg Neutrophils # Seg Neutrophils # Man Lymphocytes # (Manual) Monocytes # (Manual) Eosinophils # (Manual) Basophils # (Manual) PT INR APTT ABG pH ABG pO2 ABG HCO3 ABG O2 Saturation ABG Base Excess ABG Hemoglobin Oxyhemoglobin Sodium Potassium Chloride Carbon Dioxide BUN Creatinine Glucose POC Glucose 126 H 121 H 114 H Lactic Acid Calcium Ionized Calcium Phosphorus Magnesium Total Bilirubin AST ALT Alkaline Phosphatase Ammonia Total Creatine Kinase CK-MB (CK-2) CK-MB (CK-2) Rel Index Total Protein Albumin Urine WBC (Auto) Vancomycin Trough Salicylates Acetaminophen Plasma/Serum Alcohol Crossmatch 01/28/20 01/28/20 01/29/20 11:47 18:00 00:05 WBC RBC Hgb Hct MCH RDW Plt Count Lymph % (Auto) [place] % (Auto) [place] # Baso # Seg Neutrophils % Seg Neuts % (Manual) Lymphocytes % (Manual) Monocytes % (Manual) Seg Neutrophils # Seg Neutrophils # Man Lymphocytes # (Manual) Monocytes # (Manual) Eosinophils # (Manual) Basophils # (Manual) PT INR APTT ABG pH ABG pO2 ABG HCO3 ABG O2 Saturation ABG Base Excess ABG Hemoglobin Oxyhemoglobin Sodium Potassium Chloride Carbon Dioxide BUN Creatinine Glucose POC Glucose 106 H 117 H 127 H Lactic Acid Calcium Ionized Calcium Phosphorus Magnesium Total Bilirubin AST ALT Alkaline Phosphatase Ammonia Total Creatine Kinase CK-MB (CK-2) CK-MB (CK-2) Rel Index Total Protein Albumin Urine WBC (Auto) Vancomycin Trough Salicylates Acetaminophen Plasma/Serum Alcohol Crossmatch 01/29/20 01/29/20 01/29/20 06:04 11:40 16:38 WBC RBC Hgb Hct MCH RDW Plt Count Lymph % (Auto) [place] % (Auto) [place] # Baso # Seg Neutrophils % Seg Neuts % (Manual) Lymphocytes % (Manual) Monocytes % (Manual) Seg Neutrophils # Seg Neutrophils # Man Lymphocytes # (Manual) Monocytes # (Manual) Eosinophils # (Manual) Basophils # (Manual) PT INR APTT ABG pH ABG pO2 ABG HCO3 ABG O2 Saturation ABG Base Excess ABG Hemoglobin Oxyhemoglobin Sodium Potassium Chloride Carbon Dioxide BUN Creatinine Glucose POC Glucose 147 H 139 H 143 H Lactic Acid Calcium Ionized Calcium Phosphorus Magnesium Total Bilirubin AST ALT Alkaline Phosphatase Ammonia Total Creatine Kinase CK-MB (CK-2) CK-MB (CK-2) Rel Index Total Protein Albumin Urine WBC (Auto) Vancomycin Trough Salicylates Acetaminophen Plasma/Serum Alcohol Crossmatch 01/29/20 01/30/20 01/30/20 23:46 06:43 12:07 WBC RBC Hgb Hct MCH RDW Plt Count Lymph % (Auto) [place] % (Auto) [place] # Baso # Seg Neutrophils % Seg Neuts % (Manual) Lymphocytes % (Manual) Monocytes % (Manual) Seg Neutrophils # Seg Neutrophils # Man Lymphocytes # (Manual) Monocytes # (Manual) Eosinophils # (Manual) Basophils # (Manual) PT INR APTT ABG pH ABG pO2 ABG HCO3 ABG O2 Saturation ABG Base Excess ABG Hemoglobin Oxyhemoglobin Sodium Potassium Chloride Carbon Dioxide BUN Creatinine Glucose POC Glucose 122 H 122 H 134 H Lactic Acid Calcium Ionized Calcium Phosphorus Magnesium Total Bilirubin AST ALT Alkaline Phosphatase Ammonia Total Creatine Kinase CK-MB (CK-2) CK-MB (CK-2) Rel Index Total Protein Albumin Urine WBC (Auto) Vancomycin Trough Salicylates Acetaminophen Plasma/Serum Alcohol Crossmatch 01/30/20 01/31/20 01/31/20 17:59 00:52 05:54 WBC RBC Hgb Hct MCH RDW Plt Count Lymph % (Auto) [place] % (Auto) [place] # Baso # Seg Neutrophils % Seg Neuts % (Manual) Lymphocytes % (Manual) Monocytes % (Manual) Seg Neutrophils # Seg Neutrophils # Man Lymphocytes # (Manual) Monocytes # (Manual) Eosinophils # (Manual) Basophils # (Manual) PT INR APTT ABG pH ABG pO2 ABG HCO3 ABG O2 Saturation ABG Base Excess ABG Hemoglobin Oxyhemoglobin Sodium Potassium Chloride Carbon Dioxide BUN Creatinine Glucose POC Glucose 116 H 127 H 127 H Lactic Acid Calcium Ionized Calcium Phosphorus Magnesium Total Bilirubin AST ALT Alkaline Phosphatase Ammonia Total Creatine Kinase CK-MB (CK-2) CK-MB (CK-2) Rel Index Total Protein Albumin Urine WBC (Auto) Vancomycin Trough Salicylates Acetaminophen Plasma/Serum Alcohol Crossmatch 01/31/20 02/01/20 02/01/20 12:20 00:48 12:21 WBC RBC Hgb Hct MCH RDW Plt Count Lymph % (Auto) [place] % (Auto) [place] # Baso # Seg Neutrophils % Seg Neuts % (Manual) Lymphocytes % (Manual) Monocytes % (Manual) Seg Neutrophils # Seg Neutrophils # Man Lymphocytes # (Manual) Monocytes # (Manual) Eosinophils # (Manual) Basophils # (Manual) PT INR APTT ABG pH ABG pO2 ABG HCO3 ABG O2 Saturation ABG Base Excess ABG Hemoglobin Oxyhemoglobin Sodium Potassium Chloride Carbon Dioxide BUN Creatinine Glucose POC Glucose 126 H 154 H 123 H Lactic Acid Calcium Ionized Calcium Phosphorus Magnesium Total Bilirubin AST ALT Alkaline Phosphatase Ammonia Total Creatine Kinase CK-MB (CK-2) CK-MB (CK-2) Rel Index Total Protein Albumin Urine WBC (Auto) Vancomycin Trough Salicylates Acetaminophen Plasma/Serum Alcohol Crossmatch 02/01/20 02/02/20 02/02/20 23:58 06:08 11:50 WBC RBC Hgb Hct MCH RDW Plt Count Lymph % (Auto) [place] % (Auto) [place] # Baso # Seg Neutrophils % Seg Neuts % (Manual) Lymphocytes % (Manual) Monocytes % (Manual) Seg Neutrophils # Seg Neutrophils # Man Lymphocytes # (Manual) Monocytes # (Manual) Eosinophils # (Manual) Basophils # (Manual) PT INR APTT ABG pH ABG pO2 ABG HCO3 ABG O2 Saturation ABG Base Excess ABG Hemoglobin Oxyhemoglobin Sodium Potassium Chloride Carbon Dioxide BUN Creatinine Glucose POC Glucose 125 H 144 H 131 H Lactic Acid Calcium Ionized Calcium Phosphorus Magnesium Total Bilirubin AST ALT Alkaline Phosphatase Ammonia Total Creatine Kinase CK-MB (CK-2) CK-MB (CK-2) Rel Index Total Protein Albumin Urine WBC (Auto) Vancomycin Trough Salicylates Acetaminophen Plasma/Serum Alcohol Crossmatch 02/02/20 02/03/20 02/03/20 17:53 00:14 05:47 WBC RBC Hgb Hct MCH RDW Plt Count Lymph % (Auto) [place] % (Auto) [place] # Baso # Seg Neutrophils % Seg Neuts % (Manual) Lymphocytes % (Manual) Monocytes % (Manual) Seg Neutrophils # Seg Neutrophils # Man Lymphocytes # (Manual) Monocytes # (Manual) Eosinophils # (Manual) Basophils # (Manual) PT INR APTT ABG pH ABG pO2 ABG HCO3 ABG O2 Saturation ABG Base Excess ABG Hemoglobin Oxyhemoglobin Sodium Potassium Chloride Carbon Dioxide BUN Creatinine Glucose POC Glucose 108 H 122 H 118 H Lactic Acid Calcium Ionized Calcium Phosphorus Magnesium Total Bilirubin AST ALT Alkaline Phosphatase Ammonia Total Creatine Kinase CK-MB (CK-2) CK-MB (CK-2) Rel Index Total Protein Albumin Urine WBC (Auto) Vancomycin Trough Salicylates Acetaminophen Plasma/Serum Alcohol Crossmatch 02/03/20 02/03/20 02/03/20 05:59 05:59 11:49 WBC RBC 3.48 L Hgb Hct 29.9 L MCH RDW 16.2 H Plt Count 707 H Lymph % (Auto) [place] % (Auto) 9.3 H [place] # 0.9 H Baso # Seg Neutrophils % Seg Neuts % (Manual) Lymphocytes % (Manual) Monocytes % (Manual) Seg Neutrophils # Seg Neutrophils # Man Lymphocytes # (Manual) Monocytes # (Manual) Eosinophils # (Manual) Basophils # (Manual) PT INR APTT ABG pH ABG pO2 ABG HCO3 ABG O2 Saturation ABG Base Excess ABG Hemoglobin Oxyhemoglobin Sodium 136 L Potassium Chloride 93.4 L Carbon Dioxide BUN 20 H Creatinine 0.5 L Glucose 101 H POC Glucose 133 H Lactic Acid Calcium 10.8 H Ionized Calcium Phosphorus Magnesium Total Bilirubin AST ALT Alkaline Phosphatase Ammonia Total Creatine Kinase CK-MB (CK-2) CK-MB (CK-2) Rel Index Total Protein Albumin Urine WBC (Auto) Vancomycin Trough Salicylates Acetaminophen Plasma/Serum Alcohol Crossmatch 02/03/20 02/04/20 02/04/20 23:19 05:37 23:56 WBC RBC Hgb Hct MCH RDW Plt Count Lymph % (Auto) [place] % (Auto) [place] # Baso # Seg Neutrophils % Seg Neuts % (Manual) Lymphocytes % (Manual) Monocytes % (Manual) Seg Neutrophils # Seg Neutrophils # Man Lymphocytes # (Manual) Monocytes # (Manual) Eosinophils # (Manual) Basophils # (Manual) PT INR APTT ABG pH ABG pO2 ABG HCO3 ABG O2 Saturation ABG Base Excess ABG Hemoglobin Oxyhemoglobin Sodium Potassium Chloride Carbon Dioxide BUN Creatinine Glucose POC Glucose 135 H 108 H 158 H Lactic Acid Calcium Ionized Calcium Phosphorus Magnesium Total Bilirubin AST ALT Alkaline Phosphatase Ammonia Total Creatine Kinase CK-MB (CK-2) CK-MB (CK-2) Rel Index Total Protein Albumin Urine WBC (Auto) Vancomycin Trough Salicylates Acetaminophen Plasma/Serum Alcohol Crossmatch 02/05/20 02/05/20 02/06/20 05:33 23:24 05:50 WBC RBC Hgb Hct MCH RDW Plt Count Lymph % (Auto) [place] % (Auto) [place] # Baso # Seg Neutrophils % Seg Neuts % (Manual) Lymphocytes % (Manual) Monocytes % (Manual) Seg Neutrophils # Seg Neutrophils # Man Lymphocytes # (Manual) Monocytes # (Manual) Eosinophils # (Manual) Basophils # (Manual) PT INR APTT ABG pH ABG pO2 ABG HCO3 ABG O2 Saturation ABG Base Excess ABG Hemoglobin Oxyhemoglobin Sodium Potassium Chloride Carbon Dioxide BUN Creatinine Glucose POC Glucose 152 H 158 H 110 H Lactic Acid Calcium Ionized Calcium Phosphorus Magnesium Total Bilirubin AST ALT Alkaline Phosphatase Ammonia Total Creatine Kinase CK-MB (CK-2) CK-MB (CK-2) Rel Index Total Protein Albumin Urine WBC (Auto) Vancomycin Trough Salicylates Acetaminophen Plasma/Serum Alcohol Crossmatch 02/06/20 02/07/20 02/07/20 16:03 00:13 05:27 WBC RBC Hgb Hct MCH RDW Plt Count Lymph % (Auto) [place] % (Auto) [place] # Baso # Seg Neutrophils % Seg Neuts % (Manual) Lymphocytes % (Manual) Monocytes % (Manual) Seg Neutrophils # Seg Neutrophils # Man Lymphocytes # (Manual) Monocytes # (Manual) Eosinophils # (Manual) Basophils # (Manual) PT INR APTT ABG pH ABG pO2 ABG HCO3 ABG O2 Saturation ABG Base Excess ABG Hemoglobin Oxyhemoglobin Sodium Potassium Chloride Carbon Dioxide BUN Creatinine Glucose POC Glucose 130 H 115 H 115 H Lactic Acid Calcium Ionized Calcium Phosphorus Magnesium Total Bilirubin AST ALT Alkaline Phosphatase Ammonia Total Creatine Kinase CK-MB (CK-2) CK-MB (CK-2) Rel Index Total Protein Albumin Urine WBC (Auto) Vancomycin Trough Salicylates Acetaminophen Plasma/Serum Alcohol Crossmatch 02/07/20 02/07/20 02/08/20 11:42 17:23 00:37 WBC RBC Hgb Hct MCH RDW Plt Count Lymph % (Auto) [place] % (Auto) [place] # Baso # Seg Neutrophils % Seg Neuts % (Manual) Lymphocytes % (Manual) Monocytes % (Manual) Seg Neutrophils # Seg Neutrophils # Man Lymphocytes # (Manual) Monocytes # (Manual) Eosinophils # (Manual) Basophils # (Manual) PT INR APTT ABG pH ABG pO2 ABG HCO3 ABG O2 Saturation ABG Base Excess ABG Hemoglobin Oxyhemoglobin Sodium Potassium Chloride Carbon Dioxide BUN Creatinine Glucose POC Glucose 113 H 114 H 136 H Lactic Acid Calcium Ionized Calcium Phosphorus Magnesium Total Bilirubin AST ALT Alkaline Phosphatase Ammonia Total Creatine Kinase CK-MB (CK-2) CK-MB (CK-2) Rel Index Total Protein Albumin Urine WBC (Auto) Vancomycin Trough Salicylates Acetaminophen Plasma/Serum Alcohol Crossmatch 02/08/20 02/08/20 02/08/20 08:52 11:42 17:02 WBC RBC Hgb Hct MCH RDW Plt Count Lymph % (Auto) [place] % (Auto) [place] # Baso # Seg Neutrophils % Seg Neuts % (Manual) Lymphocytes % (Manual) Monocytes % (Manual) Seg Neutrophils # Seg Neutrophils # Man Lymphocytes # (Manual) Monocytes # (Manual) Eosinophils # (Manual) Basophils # (Manual) PT INR APTT ABG pH ABG pO2 ABG HCO3 ABG O2 Saturation ABG Base Excess ABG Hemoglobin Oxyhemoglobin Sodium 136 L Potassium Chloride 95.7 L Carbon Dioxide BUN 21 H Creatinine 0.4 L Glucose POC Glucose 128 H 145 H Lactic Acid Calcium 10.4 H Ionized Calcium Phosphorus Magnesium Total Bilirubin AST ALT Alkaline Phosphatase Ammonia Total Creatine Kinase CK-MB (CK-2) CK-MB (CK-2) Rel Index Total Protein Albumin Urine WBC (Auto) Vancomycin Trough Salicylates Acetaminophen Plasma/Serum Alcohol Crossmatch 02/09/20 02/09/20 02/09/20 01:05 11:52 16:19 WBC RBC Hgb Hct MCH RDW Plt Count Lymph % (Auto) [place] % (Auto) [place] # Baso # Seg Neutrophils % Seg Neuts % (Manual) Lymphocytes % (Manual) Monocytes % (Manual) Seg Neutrophils # Seg Neutrophils # Man Lymphocytes # (Manual) Monocytes # (Manual) Eosinophils # (Manual) Basophils # (Manual) PT INR APTT ABG pH ABG pO2 ABG HCO3 ABG O2 Saturation ABG Base Excess ABG Hemoglobin Oxyhemoglobin Sodium Potassium Chloride Carbon Dioxide BUN Creatinine Glucose POC Glucose 117 H 141 H 113 H Lactic Acid Calcium Ionized Calcium Phosphorus Magnesium Total Bilirubin AST ALT Alkaline Phosphatase Ammonia Total Creatine Kinase CK-MB (CK-2) CK-MB (CK-2) Rel Index Total Protein Albumin Urine WBC (Auto) Vancomycin Trough Salicylates Acetaminophen Plasma/Serum Alcohol Crossmatch 02/10/20 02/10/20 02/10/20 05:25 12:50 17:08 WBC RBC Hgb Hct MCH RDW Plt Count Lymph % (Auto) [place] % (Auto) [place] # Baso # Seg Neutrophils % Seg Neuts % (Manual) Lymphocytes % (Manual) Monocytes % (Manual) Seg Neutrophils # Seg Neutrophils # Man Lymphocytes # (Manual) Monocytes # (Manual) Eosinophils # (Manual) Basophils # (Manual) PT INR APTT ABG pH ABG pO2 ABG HCO3 ABG O2 Saturation ABG Base Excess ABG Hemoglobin Oxyhemoglobin Sodium Potassium Chloride Carbon Dioxide BUN Creatinine Glucose POC Glucose 136 H 127 H 111 H Lactic Acid Calcium Ionized Calcium Phosphorus Magnesium Total Bilirubin AST ALT Alkaline Phosphatase Ammonia Total Creatine Kinase CK-MB (CK-2) CK-MB (CK-2) Rel Index Total Protein Albumin Urine WBC (Auto) Vancomycin Trough Salicylates Acetaminophen Plasma/Serum Alcohol Crossmatch 02/10/20 02/11/20 02/11/20 23:55 06:11 12:07 WBC RBC Hgb Hct MCH RDW Plt Count Lymph % (Auto) [place] % (Auto) [place] # Baso # Seg Neutrophils % Seg Neuts % (Manual) Lymphocytes % (Manual) Monocytes % (Manual) Seg Neutrophils # Seg Neutrophils # Man Lymphocytes # (Manual) Monocytes # (Manual) Eosinophils # (Manual) Basophils # (Manual) PT INR APTT ABG pH ABG pO2 ABG HCO3 ABG O2 Saturation ABG Base Excess ABG Hemoglobin Oxyhemoglobin Sodium Potassium Chloride Carbon Dioxide BUN Creatinine Glucose POC Glucose 129 H 128 H 141 H Lactic Acid Calcium Ionized Calcium Phosphorus Magnesium Total Bilirubin AST ALT Alkaline Phosphatase Ammonia Total Creatine Kinase CK-MB (CK-2) CK-MB (CK-2) Rel Index Total Protein Albumin Urine WBC (Auto) Vancomycin Trough Salicylates Acetaminophen Plasma/Serum Alcohol Crossmatch 02/11/20 02/12/20 02/13/20 18:22 02:39 06:45 WBC RBC Hgb Hct MCH RDW Plt Count Lymph % (Auto) [place] % (Auto) [place] # Baso # Seg Neutrophils % Seg Neuts % (Manual) Lymphocytes % (Manual) Monocytes % (Manual) Seg Neutrophils # Seg Neutrophils # Man Lymphocytes # (Manual) Monocytes # (Manual) Eosinophils # (Manual) Basophils # (Manual) PT INR APTT ABG pH ABG pO2 ABG HCO3 ABG O2 Saturation ABG Base Excess ABG Hemoglobin Oxyhemoglobin Sodium Potassium Chloride Carbon Dioxide BUN Creatinine Glucose POC Glucose 118 H 107 H 124 H Lactic Acid Calcium Ionized Calcium Phosphorus Magnesium Total Bilirubin AST ALT Alkaline Phosphatase Ammonia Total Creatine Kinase CK-MB (CK-2) CK-MB (CK-2) Rel Index Total Protein Albumin Urine WBC (Auto) Vancomycin Trough Salicylates Acetaminophen Plasma/Serum Alcohol Crossmatch 02/13/20 02/13/20 02/14/20 12:26 18:19 00:21 WBC RBC Hgb Hct MCH RDW Plt Count Lymph % (Auto) [place] % (Auto) [place] # Baso # Seg Neutrophils % Seg Neuts % (Manual) Lymphocytes % (Manual) Monocytes % (Manual) Seg Neutrophils # Seg Neutrophils # Man Lymphocytes # (Manual) Monocytes # (Manual) Eosinophils # (Manual) Basophils # (Manual) PT INR APTT ABG pH ABG pO2 ABG HCO3 ABG O2 Saturation ABG Base Excess ABG Hemoglobin Oxyhemoglobin Sodium Potassium Chloride Carbon Dioxide BUN Creatinine Glucose POC Glucose 124 H 118 H 130 H Lactic Acid Calcium Ionized Calcium Phosphorus Magnesium Total Bilirubin AST ALT Alkaline Phosphatase Ammonia Total Creatine Kinase CK-MB (CK-2) CK-MB (CK-2) Rel Index Total Protein Albumin Urine WBC (Auto) Vancomycin Trough Salicylates Acetaminophen Plasma/Serum Alcohol Crossmatch 02/14/20 02/14/20 02/16/20 11:19 16:16 00:58 WBC RBC Hgb Hct MCH RDW Plt Count Lymph % (Auto) [place] % (Auto) [place] # Baso # Seg Neutrophils % Seg Neuts % (Manual) Lymphocytes % (Manual) Monocytes % (Manual) Seg Neutrophils # Seg Neutrophils # Man Lymphocytes # (Manual) Monocytes # (Manual) Eosinophils # (Manual) Basophils # (Manual) PT INR APTT ABG pH ABG pO2 ABG HCO3 ABG O2 Saturation ABG Base Excess ABG Hemoglobin Oxyhemoglobin Sodium Potassium Chloride Carbon Dioxide BUN Creatinine Glucose POC Glucose 135 H 119 H 121 H Lactic Acid Calcium Ionized Calcium Phosphorus Magnesium Total Bilirubin AST ALT Alkaline Phosphatase Ammonia Total Creatine Kinase CK-MB (CK-2) CK-MB (CK-2) Rel Index Total Protein Albumin Urine WBC (Auto) Vancomycin Trough Salicylates Acetaminophen Plasma/Serum Alcohol Crossmatch 02/16/20 02/16/20 02/16/20 12:12 18:22 23:51 WBC RBC Hgb Hct MCH RDW Plt Count Lymph % (Auto) [place] % (Auto) [place] # Baso # Seg Neutrophils % Seg Neuts % (Manual) Lymphocytes % (Manual) Monocytes % (Manual) Seg Neutrophils # Seg Neutrophils # Man Lymphocytes # (Manual) Monocytes # (Manual) Eosinophils # (Manual) Basophils # (Manual) PT INR APTT ABG pH ABG pO2 ABG HCO3 ABG O2 Saturation ABG Base Excess ABG Hemoglobin Oxyhemoglobin Sodium Potassium Chloride Carbon Dioxide BUN Creatinine Glucose POC Glucose 107 H 106 H 128 H Lactic Acid Calcium Ionized Calcium Phosphorus Magnesium Total Bilirubin AST ALT Alkaline Phosphatase Ammonia Total Creatine Kinase CK-MB (CK-2) CK-MB (CK-2) Rel Index Total Protein Albumin Urine WBC (Auto) Vancomycin Trough Salicylates Acetaminophen Plasma/Serum Alcohol Crossmatch 02/17/20 02/17/20 02/17/20 05:50 07:57 07:57 WBC 12.6 H RBC 3.52 L Hgb Hct MCH RDW 15.3 H Plt Count 643 H Lymph % (Auto) [place] % (Auto) 8.0 H [place] # 1.0 H Baso # Seg Neutrophils % Seg Neuts % (Manual) Lymphocytes % (Manual) Monocytes % (Manual) Seg Neutrophils # 8.5 H Seg Neutrophils # Man Lymphocytes # (Manual) Monocytes # (Manual) Eosinophils # (Manual) Basophils # (Manual) PT INR APTT ABG pH ABG pO2 ABG HCO3 ABG O2 Saturation ABG Base Excess ABG Hemoglobin Oxyhemoglobin Sodium Potassium Chloride 96.9 L Carbon Dioxide BUN 21 H Creatinine 0.4 L Glucose 113 H POC Glucose 116 H Lactic Acid Calcium 10.5 H Ionized Calcium Phosphorus Magnesium Total Bilirubin AST ALT Alkaline Phosphatase Ammonia Total Creatine Kinase CK-MB (CK-2) CK-MB (CK-2) Rel Index Total Protein Albumin Urine WBC (Auto) Vancomycin Trough Salicylates Acetaminophen Plasma/Serum Alcohol Crossmatch 02/17/20 02/17/20 02/18/20 12:05 18:16 00:13 WBC RBC Hgb Hct MCH RDW Plt Count Lymph % (Auto) [place] % (Auto) [place] # Baso # Seg Neutrophils % Seg Neuts % (Manual) Lymphocytes % (Manual) Monocytes % (Manual) Seg Neutrophils # Seg Neutrophils # Man Lymphocytes # (Manual) Monocytes # (Manual) Eosinophils # (Manual) Basophils # (Manual) PT INR APTT ABG pH ABG pO2 ABG HCO3 ABG O2 Saturation ABG Base Excess ABG Hemoglobin Oxyhemoglobin Sodium Potassium Chloride Carbon Dioxide BUN Creatinine Glucose POC Glucose 139 H 127 H 144 H Lactic Acid Calcium Ionized Calcium Phosphorus Magnesium Total Bilirubin AST ALT Alkaline Phosphatase Ammonia Total Creatine Kinase CK-MB (CK-2) CK-MB (CK-2) Rel Index Total Protein Albumin Urine WBC (Auto) Vancomycin Trough Salicylates Acetaminophen Plasma/Serum Alcohol Crossmatch 02/18/20 02/18/20 02/19/20 17:41 23:28 05:17 WBC RBC Hgb Hct MCH RDW Plt Count Lymph % (Auto) [place] % (Auto) [place] # Baso # Seg Neutrophils % Seg Neuts % (Manual) Lymphocytes % (Manual) Monocytes % (Manual) Seg Neutrophils # Seg Neutrophils # Man Lymphocytes # (Manual) Monocytes # (Manual) Eosinophils # (Manual) Basophils # (Manual) PT INR APTT ABG pH ABG pO2 ABG HCO3 ABG O2 Saturation ABG Base Excess ABG Hemoglobin Oxyhemoglobin Sodium Potassium Chloride Carbon Dioxide BUN Creatinine Glucose POC Glucose 118 H 166 H 116 H Lactic Acid Calcium Ionized Calcium Phosphorus Magnesium Total Bilirubin AST ALT Alkaline Phosphatase Ammonia Total Creatine Kinase CK-MB (CK-2) CK-MB (CK-2) Rel Index Total Protein Albumin Urine WBC (Auto) Vancomycin Trough Salicylates Acetaminophen Plasma/Serum Alcohol Crossmatch 02/19/20 02/19/20 02/20/20 12:33 17:02 00:12 WBC RBC Hgb Hct MCH RDW Plt Count Lymph % (Auto) [place] % (Auto) [place] # Baso # Seg Neutrophils % Seg Neuts % (Manual) Lymphocytes % (Manual) Monocytes % (Manual) Seg Neutrophils # Seg Neutrophils # Man Lymphocytes # (Manual) Monocytes # (Manual) Eosinophils # (Manual) Basophils # (Manual) PT INR APTT ABG pH ABG pO2 ABG HCO3 ABG O2 Saturation ABG Base Excess ABG Hemoglobin Oxyhemoglobin Sodium Potassium Chloride Carbon Dioxide BUN Creatinine Glucose POC Glucose 115 H 108 H 153 H Lactic Acid Calcium Ionized Calcium Phosphorus Magnesium Total Bilirubin AST ALT Alkaline Phosphatase Ammonia Total Creatine Kinase CK-MB (CK-2) CK-MB (CK-2) Rel Index Total Protein Albumin Urine WBC (Auto) Vancomycin Trough Salicylates Acetaminophen Plasma/Serum Alcohol Crossmatch 02/20/20 02/20/20 02/21/20 12:00 23:13 05:07 WBC RBC Hgb Hct MCH RDW Plt Count Lymph % (Auto) [place] % (Auto) [place] # Baso # Seg Neutrophils % Seg Neuts % (Manual) Lymphocytes % (Manual) Monocytes % (Manual) Seg Neutrophils # Seg Neutrophils # Man Lymphocytes # (Manual) Monocytes # (Manual) Eosinophils # (Manual) Basophils # (Manual) PT INR APTT ABG pH ABG pO2 ABG HCO3 ABG O2 Saturation ABG Base Excess ABG Hemoglobin Oxyhemoglobin Sodium Potassium Chloride Carbon Dioxide BUN Creatinine Glucose POC Glucose 171 H 129 H 116 H Lactic Acid Calcium Ionized Calcium Phosphorus Magnesium Total Bilirubin AST ALT Alkaline Phosphatase Ammonia Total Creatine Kinase CK-MB (CK-2) CK-MB (CK-2) Rel Index Total Protein Albumin Urine WBC (Auto) Vancomycin Trough Salicylates Acetaminophen Plasma/Serum Alcohol Crossmatch 02/21/20 02/22/20 02/22/20 12:15 00:42 06:30 WBC RBC Hgb Hct MCH RDW Plt Count Lymph % (Auto) [place] % (Auto) [place] # Baso # Seg Neutrophils % Seg Neuts % (Manual) Lymphocytes % (Manual) Monocytes % (Manual) Seg Neutrophils # Seg Neutrophils # Man Lymphocytes # (Manual) Monocytes # (Manual) Eosinophils # (Manual) Basophils # (Manual) PT INR APTT ABG pH ABG pO2 ABG HCO3 ABG O2 Saturation ABG Base Excess ABG Hemoglobin Oxyhemoglobin Sodium Potassium Chloride Carbon Dioxide BUN Creatinine Glucose POC Glucose 124 H 142 H 117 H Lactic Acid Calcium Ionized Calcium Phosphorus Magnesium Total Bilirubin AST ALT Alkaline Phosphatase Ammonia Total Creatine Kinase CK-MB (CK-2) CK-MB (CK-2) Rel Index Total Protein Albumin Urine WBC (Auto) Vancomycin Trough Salicylates Acetaminophen Plasma/Serum Alcohol Crossmatch 02/22/20 02/22/20 02/23/20 12:20 17:55 12:46 WBC RBC Hgb Hct MCH RDW Plt Count Lymph % (Auto) [place] % (Auto) [place] # Baso # Seg Neutrophils % Seg Neuts % (Manual) Lymphocytes % (Manual) Monocytes % (Manual) Seg Neutrophils # Seg Neutrophils # Man Lymphocytes # (Manual) Monocytes # (Manual) Eosinophils # (Manual) Basophils # (Manual) PT INR APTT ABG pH ABG pO2 ABG HCO3 ABG O2 Saturation ABG Base Excess ABG Hemoglobin Oxyhemoglobin Sodium Potassium Chloride Carbon Dioxide BUN Creatinine Glucose POC Glucose 121 H 157 H 112 H Lactic Acid Calcium Ionized Calcium Phosphorus Magnesium Total Bilirubin AST ALT Alkaline Phosphatase Ammonia Total Creatine Kinase CK-MB (CK-2) CK-MB (CK-2) Rel Index Total Protein Albumin Urine WBC (Auto) Vancomycin Trough Salicylates Acetaminophen Plasma/Serum Alcohol Crossmatch 02/23/20 02/24/20 02/24/20 16:47 00:38 07:00 WBC RBC Hgb Hct MCH RDW Plt Count Lymph % (Auto) [place] % (Auto) [place] # Baso # Seg Neutrophils % Seg Neuts % (Manual) Lymphocytes % (Manual) Monocytes % (Manual) Seg Neutrophils # Seg Neutrophils # Man Lymphocytes # (Manual) Monocytes # (Manual) Eosinophils # (Manual) Basophils # (Manual) PT INR APTT ABG pH ABG pO2 ABG HCO3 ABG O2 Saturation ABG Base Excess ABG Hemoglobin Oxyhemoglobin Sodium Potassium Chloride Carbon Dioxide BUN Creatinine Glucose POC Glucose 142 H 138 H 118 H Lactic Acid Calcium Ionized Calcium Phosphorus Magnesium Total Bilirubin AST ALT Alkaline Phosphatase Ammonia Total Creatine Kinase CK-MB (CK-2) CK-MB (CK-2) Rel Index Total Protein Albumin Urine WBC (Auto) Vancomycin Trough Salicylates Acetaminophen Plasma/Serum Alcohol Crossmatch 02/24/20 02/24/20 02/25/20 11:41 18:33 18:24 WBC RBC Hgb Hct MCH RDW Plt Count Lymph % (Auto) [place] % (Auto) [place] # Baso # Seg Neutrophils % Seg Neuts % (Manual) Lymphocytes % (Manual) Monocytes % (Manual) Seg Neutrophils # Seg Neutrophils # Man Lymphocytes # (Manual) Monocytes # (Manual) Eosinophils # (Manual) Basophils # (Manual) PT INR APTT ABG pH ABG pO2 ABG HCO3 ABG O2 Saturation ABG Base Excess ABG Hemoglobin Oxyhemoglobin Sodium Potassium Chloride Carbon Dioxide BUN Creatinine Glucose POC Glucose 152 H 126 H 120 H Lactic Acid Calcium Ionized Calcium Phosphorus Magnesium Total Bilirubin AST ALT Alkaline Phosphatase Ammonia Total Creatine Kinase CK-MB (CK-2) CK-MB (CK-2) Rel Index Total Protein Albumin Urine WBC (Auto) Vancomycin Trough Salicylates Acetaminophen Plasma/Serum Alcohol Crossmatch 02/25/20 02/26/20 02/26/20 23:40 05:46 11:32 WBC RBC Hgb Hct MCH RDW Plt Count Lymph % (Auto) [place] % (Auto) [place] # Baso # Seg Neutrophils % Seg Neuts % (Manual) Lymphocytes % (Manual) Monocytes % (Manual) Seg Neutrophils # Seg Neutrophils # Man Lymphocytes # (Manual) Monocytes # (Manual) Eosinophils # (Manual) Basophils # (Manual) PT INR APTT ABG pH ABG pO2 ABG HCO3 ABG O2 Saturation ABG Base Excess ABG Hemoglobin Oxyhemoglobin Sodium Potassium Chloride Carbon Dioxide BUN Creatinine Glucose POC Glucose 114 H 113 H 106 H Lactic Acid Calcium Ionized Calcium Phosphorus Magnesium Total Bilirubin AST ALT Alkaline Phosphatase Ammonia Total Creatine Kinase CK-MB (CK-2) CK-MB (CK-2) Rel Index Total Protein Albumin Urine WBC (Auto) Vancomycin Trough Salicylates Acetaminophen Plasma/Serum Alcohol Crossmatch 02/26/20 02/27/20 02/27/20 16:14 11:53 17:54 WBC RBC Hgb Hct MCH RDW Plt Count Lymph % (Auto) [place] % (Auto) [place] # Baso # Seg Neutrophils % Seg Neuts % (Manual) Lymphocytes % (Manual) Monocytes % (Manual) Seg Neutrophils # Seg Neutrophils # Man Lymphocytes # (Manual) Monocytes # (Manual) Eosinophils # (Manual) Basophils # (Manual) PT INR APTT ABG pH ABG pO2 ABG HCO3 ABG O2 Saturation ABG Base Excess ABG Hemoglobin Oxyhemoglobin Sodium Potassium Chloride Carbon Dioxide BUN Creatinine Glucose POC Glucose 123 H 134 H 119 H Lactic Acid Calcium Ionized Calcium Phosphorus Magnesium Total Bilirubin AST ALT Alkaline Phosphatase Ammonia Total Creatine Kinase CK-MB (CK-2) CK-MB (CK-2) Rel Index Total Protein Albumin Urine WBC (Auto) Vancomycin Trough Salicylates Acetaminophen Plasma/Serum Alcohol Crossmatch 02/27/20 02/28/20 02/28/20 23:51 03:40 03:40 WBC RBC 3.58 L Hgb Hct MCH RDW Plt Count 575 H Lymph % (Auto) [place] % (Auto) 9.4 H [place] # 1.0 H Baso # Seg Neutrophils % Seg Neuts % (Manual) Lymphocytes % (Manual) Monocytes % (Manual) Seg Neutrophils # Seg Neutrophils # Man Lymphocytes # (Manual) Monocytes # (Manual) Eosinophils # (Manual) Basophils # (Manual) PT INR APTT ABG pH ABG pO2 ABG HCO3 ABG O2 Saturation ABG Base Excess ABG Hemoglobin Oxyhemoglobin Sodium Potassium Chloride Carbon Dioxide BUN 23 H Creatinine 0.5 L Glucose 114 H POC Glucose 138 H Lactic Acid Calcium Ionized Calcium Phosphorus Magnesium Total Bilirubin AST ALT Alkaline Phosphatase Ammonia Total Creatine Kinase CK-MB (CK-2) CK-MB (CK-2) Rel Index Total Protein Albumin Urine WBC (Auto) Vancomycin Trough Salicylates Acetaminophen Plasma/Serum Alcohol Crossmatch 02/28/20 02/28/20 02/29/20 12:37 18:38 05:50 WBC RBC Hgb Hct MCH RDW Plt Count Lymph % (Auto) [place] % (Auto) [place] # Baso # Seg Neutrophils % Seg Neuts % (Manual) Lymphocytes % (Manual) Monocytes % (Manual) Seg Neutrophils # Seg Neutrophils # Man Lymphocytes # (Manual) Monocytes # (Manual) Eosinophils # (Manual) Basophils # (Manual) PT INR APTT ABG pH ABG pO2 ABG HCO3 ABG O2 Saturation ABG Base Excess ABG Hemoglobin Oxyhemoglobin Sodium Potassium Chloride Carbon Dioxide BUN Creatinine Glucose POC Glucose 115 H 120 H 114 H Lactic Acid Calcium Ionized Calcium Phosphorus Magnesium Total Bilirubin AST ALT Alkaline Phosphatase Ammonia Total Creatine Kinase CK-MB (CK-2) CK-MB (CK-2) Rel Index Total Protein Albumin Urine WBC (Auto) Vancomycin Trough Salicylates Acetaminophen Plasma/Serum Alcohol Crossmatch 02/29/20 02/29/20 03/01/20 18:53 23:10 06:53 WBC RBC Hgb Hct MCH RDW Plt Count Lymph % (Auto) [place] % (Auto) [place] # Baso # Seg Neutrophils % Seg Neuts % (Manual) Lymphocytes % (Manual) Monocytes % (Manual) Seg Neutrophils # Seg Neutrophils # Man Lymphocytes # (Manual) Monocytes # (Manual) Eosinophils # (Manual) Basophils # (Manual) PT INR APTT ABG pH ABG pO2 ABG HCO3 ABG O2 Saturation ABG Base Excess ABG Hemoglobin Oxyhemoglobin Sodium Potassium Chloride Carbon Dioxide BUN Creatinine Glucose POC Glucose 112 H 147 H 131 H Lactic Acid Calcium Ionized Calcium Phosphorus Magnesium Total Bilirubin AST ALT Alkaline Phosphatase Ammonia Total Creatine Kinase CK-MB (CK-2) CK-MB (CK-2) Rel Index Total Protein Albumin Urine WBC (Auto) Vancomycin Trough Salicylates Acetaminophen Plasma/Serum Alcohol Crossmatch 03/01/20 03/01/20 03/02/20 17:31 18:35 00:10 WBC RBC Hgb Hct MCH RDW Plt Count Lymph % (Auto) [place] % (Auto) [place] # Baso # Seg Neutrophils % Seg Neuts % (Manual) Lymphocytes % (Manual) Monocytes % (Manual) Seg Neutrophils # Seg Neutrophils # Man Lymphocytes # (Manual) Monocytes # (Manual) Eosinophils # (Manual) Basophils # (Manual) PT INR APTT ABG pH ABG pO2 ABG HCO3 ABG O2 Saturation ABG Base Excess ABG Hemoglobin Oxyhemoglobin Sodium Potassium Chloride Carbon Dioxide BUN Creatinine Glucose POC Glucose 61 L 129 H 117 H Lactic Acid Calcium Ionized Calcium Phosphorus Magnesium Total Bilirubin AST ALT Alkaline Phosphatase Ammonia Total Creatine Kinase CK-MB (CK-2) CK-MB (CK-2) Rel Index Total Protein Albumin Urine WBC (Auto) Vancomycin Trough Salicylates Acetaminophen Plasma/Serum Alcohol Crossmatch 03/02/20 03/02/20 03/02/20 06:56 12:02 18:42 WBC RBC Hgb Hct MCH RDW Plt Count Lymph % (Auto) [place] % (Auto) [place] # Baso # Seg Neutrophils % Seg Neuts % (Manual) Lymphocytes % (Manual) Monocytes % (Manual) Seg Neutrophils # Seg Neutrophils # Man Lymphocytes # (Manual) Monocytes # (Manual) Eosinophils # (Manual) Basophils # (Manual) PT INR APTT ABG pH ABG pO2 ABG HCO3 ABG O2 Saturation ABG Base Excess ABG Hemoglobin Oxyhemoglobin Sodium Potassium Chloride Carbon Dioxide BUN Creatinine Glucose POC Glucose 125 H 111 H 126 H Lactic Acid Calcium Ionized Calcium Phosphorus Magnesium Total Bilirubin AST ALT Alkaline Phosphatase Ammonia Total Creatine Kinase CK-MB (CK-2) CK-MB (CK-2) Rel Index Total Protein Albumin Urine WBC (Auto) Vancomycin Trough Salicylates Acetaminophen Plasma/Serum Alcohol Crossmatch 03/03/20 03/03/20 00:18 06:11 WBC RBC Hgb Hct MCH RDW Plt Count Lymph % (Auto) [place] % (Auto) [place] # Baso # Seg Neutrophils % Seg Neuts % (Manual) Lymphocytes % (Manual) Monocytes % (Manual) Seg Neutrophils # Seg Neutrophils # Man Lymphocytes # (Manual) Monocytes # (Manual) Eosinophils # (Manual) Basophils # (Manual) PT INR APTT ABG pH ABG pO2 ABG HCO3 ABG O2 Saturation ABG Base Excess ABG Hemoglobin Oxyhemoglobin Sodium Potassium Chloride Carbon Dioxide BUN Creatinine Glucose POC Glucose 139 H 155 H Lactic Acid Calcium Ionized Calcium Phosphorus Magnesium Total Bilirubin AST ALT Alkaline Phosphatase Ammonia Total Creatine Kinase CK-MB (CK-2) CK-MB (CK-2) Rel Index Total Protein Albumin Urine WBC (Auto) Vancomycin Trough Salicylates Acetaminophen Plasma/Serum Alcohol Crossmatch Allied health notes reviewed: RT
--- NOTE | 2020-03-03 09:08 | Progress Note ---
Assessment and Plan / Anoxic brain injury: suspected CT head: No acute abnormality. EEG ordered showed Generalized slowing. No seizures or epileptiform activity. -Patient now opening her eyes, can speak and able to follow minor command by nodding head /Acute Respiratory failure -s/p intubation, s/p trach and PEG on 12/12 with mechanical ventilation, now on T-piece - CTA was done and negative for PE, - Echo quality is poor, showed diastolic dysfunction - continue weaning as tolerated /Anemia, microcytic - Status post 3 units PRBC transfusion, H&H low stable /Acute metabolic encephalopathy/toxic encephalopathy due to the above - cont supportive care /Hyperammonemia - likely from liver disease related to EtOH abuse - Patient had elevated ammonia level and treated with lactulose /Metabolic Acidosis -Alcohol ketoacidosis vs hypoprofusion -Continue to monitor /ELevated LFTs, stable now - due to ischemic hepatitis. /Leucocytosis with sepsis - Source MRSA bacteremia and MSSA pneumonia. UA showed pyuria. RUQ US showed no ascites. - Repeat TTE negative for vegetation. Completed 7 days of Ceftriaxone on 11/29/2019. -Treated with Abx vancomycin 1 gm IV q 12 hour total 2 week till 12/30/2019 /MSSA pneumonia: Status post vancomycin till 12/30/2019 /ALcohol USe Disorder - given ongoing Alcohol use almost daily, s/p IV Thiamine - monitor /Severe hypokalemia -Repleted /Seizure disorder: treat with Keppra /H. Influenzae, tracheobronchitis, treated with abx /Moderate to severe fecal impaction - will add stool softner DNR CODE STATUS Disposition: prognosis guarded. Family okay for DNR, PT recommended subacute rehab, discharge pending on placement. negative for COVID 19 Brief History: 54-year-old female with a past medical history of Hypertension, Depression, Tobacco use Disorder, Alcohol use Disorder as confirmed by Daughter and pt's mother presents to the hospital status post cardiac arrest at home. EMS found [place]. They were unable to intubate patient with a ET tube because she was clenching down therefore Joe airway placed. Per the ED physician who evaluated pt, Patient presented with a pulse, intermittent respirations, and bagging support via Joe airway with O2 sat of 100%. Accu-Chek of 71 obtained by EMS. She was intubated in the ER and called for admission. Following admission patient was diagnosed with anoxic brain injury, sepsis with MRSA bacteremia and MSSA pneumonia, alcoholic liver disease. Family member initially wished for full code then changed to DNR, patient treated with IV antibiotics for sepsis, status post trach and PEG on 12/13/19. Weaned off from the vent and put on T- piece. Patient is uninsured, waiting for placement, guarded prognosis. Physical exam: General appearance: Present: other (elderly female, open eyes) - EENT Eyes: no scleral icterus, no conjunctival injection, pupil not reactive ENT: clear oral mucosa, dentition normal, no oropharyngeal erythema Ears: bilateral: normal - Neck Neck: trach on place - Respiratory Respiratory effort: other (on T-piece) Respiratory: bilateral: rales - Cardiovascular Rhythm: regular Heart Sounds: Present: S1 & S2. Absent: gallop, rub Extremities: pulses intact, No edema, normal color - Gastrointestinal General gastrointestinal: Present: soft, non-tender, non-distended, normal bowel sounds - Integumentary Integumentary: clear, warm, dry - Musculoskeletal Musculoskeletal: No joint swelling or tenderness - Neurologic Neurologic: other (2+ reflexes throughout). respond to commend and nods head. generalized weakness, verbal - Psychiatric Psychiatric: co-operative Subjective Date of service: 03/02/20 Principal diagnosis: Ac cardiopulmonary arrest; Ac hypoxemic resp failure; Acute encephalopathy Interval history: Patient seen and examined medical records reviewed Patient is alert and awake not in acute distress Tracheostomy on T-piece, Vital signs noted discharge pending on placement, remains on restraint Objective - Constitutional Vitals: Vital Signs - 12hr 03/02/20 03/02/20 03/02/20 22:08 22:09 22:20 Temperature Pulse Rate 102 H Pulse Rate [ 109 H Anterior Bilateral Throughout] Respiratory Rate Respiratory 20 Rate [Anterior Bilateral Throughout] Blood Pressure 119/85 O2 Sat by Pulse 100 Oximetry O2 Sat by Pulse Oximetry [ Assessment] 03/03/20 03/03/20 03/03/20 00:04 00:24 04:07 Temperature 98.2 F 98.4 F Pulse Rate 90 89 Pulse Rate [ Anterior Bilateral Throughout] Respiratory 18 18 Rate Respiratory Rate [Anterior Bilateral Throughout] Blood Pressure 123/85 168/95 O2 Sat by Pulse 100 100 Oximetry O2 Sat by Pulse 98 Oximetry [ Assessment] 03/03/20 03/03/20 03/03/20 05:57 07:57 08:00 Temperature 98.1 F Pulse Rate 94 H 115 H Pulse Rate [ 94 H Anterior Bilateral Throughout] Respiratory 20 Rate Respiratory 18 Rate [Anterior Bilateral Throughout] Blood Pressure 168/95 117/78 O2 Sat by Pulse 99 Oximetry O2 Sat by Pulse Oximetry [ Assessment] - Labs CBC & Chem 7: 02/28/20 03:40 02/28/20 03:40 Labs: Abnormal lab results 03/02/20 03/02/20 03/03/20 Range/Units 12:02 18:42 00:18 POC Glucose 111 H 126 H 139 H (70-105) 03/03/20 Range/Units 06:11 POC Glucose 155 H (70-105) HEART Score - HEART Score Troponin: Troponin T < 0.010 ng/mL (0.00-0.029) 11/22/19 23:27
[2020-03-03] MEDS: ACETYLCYSTEINE 20% 200 MG/1 ML *FOR INHALATION USE INHALATION SCH ×2 (09:19→21:40)
[2020-03-03] MEDS: SERTRALINE 50 MG TAB PO SCH (09:36)
[2020-03-03] MEDS: GLYCOPYRROLATE 1 MG TAB PO SCH ×3 (09:36→20:34)
[2020-03-03] MEDS: levETIRAcetam 500 MG/5 ML ORAL LIQD PO SCH ×2 (09:36→22:02)
[2020-03-03] MEDS: METOPROLOL TARTRATE 25 MG TAB PO SCH ×2 (09:37→22:02)
[2020-03-03] MEDS: NICOTINE 21 MG/24 HR PATCH TD SCH (09:37)
[2020-03-03] MEDS: LANSOPRAZOLE 30 MG SOLUTAB FEEDTUBE SCH (09:37)
[2020-03-03] MEDS: DOCUSATE SODIUM 100 MG/10 ML ORAL LIQD FEEDTUBE SCH ×2 (09:37→22:02)
[2020-03-03] MEDS: MIRTAZAPINE 30 MG TAB PO SCH (09:39)
[2020-03-03] MEDS: ALPRAZolam 1 MG TAB PO PRN ×2 (14:00→22:02)
[2020-03-03] MEDS: hydrOXYzine PAMOATE 25 MG CAP PO SCH ×2 (14:00→22:06)
[2020-03-03] MEDS: SCOPOLAMINE TRANSDERMAL PATCH 72 HR TD SCH (18:33)
[2020-03-03] MEDS: QUEtiapine 100 MG TAB FEEDTUBE SCH (22:02)
[2020-03-04] MEDS: LEVALBUTEROL 0.63 MG/3 ML NEBU IH SCH ×4 (00:43→22:31)
[2020-03-04] MEDS: ALPRAZolam 1 MG TAB PO PRN ×2 (08:00→22:47)
[2020-03-04] MEDS: ACETYLCYSTEINE 20% 200 MG/1 ML *FOR INHALATION USE INHALATION SCH ×2 (09:53→22:30)
[2020-03-04] MEDS: hydrOXYzine PAMOATE 25 MG CAP PO SCH ×2 (10:36→22:47)
[2020-03-04] MEDS: LANSOPRAZOLE 30 MG SOLUTAB FEEDTUBE SCH (10:36)
[2020-03-04] MEDS: GLYCOPYRROLATE 1 MG TAB PO SCH ×3 (10:36→20:45)
[2020-03-04] MEDS: NICOTINE 21 MG/24 HR PATCH TD SCH (10:37)
[2020-03-04] MEDS: SERTRALINE 50 MG TAB PO SCH (10:37)
[2020-03-04] MEDS: METOPROLOL TARTRATE 25 MG TAB PO SCH ×2 (10:37→21:59)
[2020-03-04] MEDS: levETIRAcetam 500 MG/5 ML ORAL LIQD PO SCH ×2 (10:37→21:59)
[2020-03-04] MEDS: DOCUSATE SODIUM 100 MG/10 ML ORAL LIQD FEEDTUBE SCH ×2 (10:37→21:59)
[2020-03-04] MEDS: MIRTAZAPINE 30 MG TAB PO SCH (10:37)
--- NOTE | 2020-03-04 11:30 | Progress Note ---
Assessment and Plan / Anoxic brain injury: suspected CT head: No acute abnormality. EEG ordered showed Generalized slowing. No seizures or epileptiform activity. -Patient now opening her eyes, can speak and able to follow minor command by nodding head /Acute Respiratory failure -s/p intubation, s/p trach and PEG on 12/12 with mechanical ventilation, now on T-piece - CTA was done and negative for PE, - Echo quality is poor, showed diastolic dysfunction - continue weaning as tolerated /Anemia, microcytic - Status post 3 units PRBC transfusion, H&H low stable /Acute metabolic encephalopathy/toxic encephalopathy due to the above - cont supportive care /Hyperammonemia - likely from liver disease related to EtOH abuse - Patient had elevated ammonia level and treated with lactulose /Metabolic Acidosis -Alcohol ketoacidosis vs hypoprofusion -Continue to monitor /ELevated LFTs, stable now - due to ischemic hepatitis. /Leucocytosis with sepsis - Source MRSA bacteremia and MSSA pneumonia. UA showed pyuria. RUQ US showed no ascites. - Repeat TTE negative for vegetation. Completed 7 days of Ceftriaxone on 11/29/2019. -Treated with Abx vancomycin 1 gm IV q 12 hour total 2 week till 12/30/2019 /MSSA pneumonia: Status post vancomycin till 12/30/2019 /ALcohol USe Disorder - given ongoing Alcohol use almost daily, s/p IV Thiamine - monitor /Severe hypokalemia -Repleted /Seizure disorder: treat with Keppra /H. Influenzae, tracheobronchitis, treated with abx /Moderate to severe fecal impaction - will add stool softner DNR CODE STATUS Disposition: prognosis guarded. Family okay for DNR, PT recommended subacute rehab, discharge pending on placement. negative for COVID 19 Brief History: 54-year-old female with a past medical history of Hypertension, Depression, Tobacco use Disorder, Alcohol use Disorder as confirmed by Daughter and pt's mother presents to the hospital status post cardiac arrest at home. EMS found pt [place]. They were unable to intubate patient with a ET tube because she was clenching down therefore Joe airway placed. Per the ED physician who evaluated pt, Patient presented with a pulse, intermittent respirations, and bagging support via Joe airway with O2 sat of 100%. Accu-Chek of 71 obtained by EMS. She was intubated in the ER and called for admission. Following admission patient was diagnosed with anoxic brain injury, sepsis with MRSA bacteremia and MSSA pneumonia, alcoholic liver disease. Family member initially wished for full code then changed to DNR, patient treated with IV antibiotics for sepsis, status post trach and PEG on 12/13/19. Weaned off from the vent and put on T- piece. Patient is uninsured, waiting for placement, guarded prognosis. Physical exam: General appearance: Present: other (elderly female, open eyes) - EENT Eyes: no scleral icterus, no conjunctival injection, pupil not reactive ENT: clear oral mucosa, dentition normal, no oropharyngeal erythema Ears: bilateral: normal - Neck Neck: trach on place - Respiratory Respiratory effort: other (on T-piece) Respiratory: bilateral: rales - Cardiovascular Rhythm: regular Heart Sounds: Present: S1 & S2. Absent: gallop, rub Extremities: pulses intact, No edema, normal color - Gastrointestinal General gastrointestinal: Present: soft, non-tender, non-distended, normal bowel sounds - Integumentary Integumentary: clear, warm, dry - Musculoskeletal Musculoskeletal: No joint swelling or tenderness - Neurologic Neurologic: other (2+ reflexes throughout). respond to commend and nods head. generalized weakness, verbal - Psychiatric Psychiatric: co-operative Subjective Date of service: 03/04/20 Principal diagnosis: Ac cardiopulmonary arrest; Ac hypoxemic resp failure; Acute encephalopathy Interval history: Patient seen and examined medical records reviewed Patient is alert and awake not in acute distress Tracheostomy on T-piece, Vital signs noted discharge pending on placement, remains on restraint Objective - Constitutional Vitals: Vital Signs - 12hr 03/03/20 03/04/20 03/04/20 23:34 00:00 04:04 Temperature 98.2 F 98.1 F Pulse Rate 96 H 93 H Pulse Rate [ From Monitor] Respiratory 19 18 Rate Blood Pressure 98/71 122/76 O2 Sat by Pulse 94 99 Oximetry O2 Sat by Pulse 99 Oximetry [ Assessment] 03/04/20 03/04/20 03/04/20 06:35 07:26 08:02 Temperature 99.0 F Pulse Rate 113 H Pulse Rate [ 112 H From Monitor] Respiratory 18 22 Rate Blood Pressure 111/66 O2 Sat by Pulse 96 Oximetry O2 Sat by Pulse 99 Oximetry [ Assessment] 03/04/20 08:53 Temperature Pulse Rate 107 H Pulse Rate [ From Monitor] Respiratory Rate Blood Pressure O2 Sat by Pulse Oximetry O2 Sat by Pulse Oximetry [ Assessment] - Labs CBC & Chem 7: 02/28/20 03:40 02/28/20 03:40 Labs: Abnormal lab results 03/03/20 03/03/20 03/03/20 Range/Units 11:50 18:09 23:46 POC Glucose 118 H 109 H 132 H (70-105) 03/04/20 Range/Units 05:37 POC Glucose 111 H (70-105) HEART Score - HEART Score Troponin: Troponin T < 0.010 ng/mL (0.00-0.029) 11/22/19 23:27
[2020-03-04] MEDS: QUEtiapine 100 MG TAB FEEDTUBE SCH (21:59)
[2020-03-05] MEDS: LEVALBUTEROL 0.63 MG/3 ML NEBU IH SCH ×3 (00:36→22:22)
[2020-03-05] MEDS: ACETYLCYSTEINE 20% 200 MG/1 ML *FOR INHALATION USE INHALATION SCH ×2 (08:55→22:22)
[2020-03-05] MEDS: HALOPERIDOL LACTATE 5 MG/1 ML INJ IM PRN (09:30)
[2020-03-05] MEDS: ALPRAZolam 1 MG TAB PO PRN ×2 (09:30→16:49)
[2020-03-05] MEDS: NICOTINE 21 MG/24 HR PATCH TD SCH (10:48)
[2020-03-05] MEDS: GLYCOPYRROLATE 1 MG TAB PO SCH ×3 (10:48→22:00)
[2020-03-05] MEDS: SERTRALINE 50 MG TAB PO SCH (10:48)
[2020-03-05] MEDS: DOCUSATE SODIUM 100 MG/10 ML ORAL LIQD FEEDTUBE SCH ×2 (10:48→22:00)
[2020-03-05] MEDS: hydrOXYzine PAMOATE 25 MG CAP PO SCH ×2 (10:48→22:00)
[2020-03-05] MEDS: levETIRAcetam 500 MG/5 ML ORAL LIQD PO SCH ×2 (10:48→22:00)
[2020-03-05] MEDS: MIRTAZAPINE 30 MG TAB PO SCH (10:49)
[2020-03-05] MEDS: LANSOPRAZOLE 30 MG SOLUTAB FEEDTUBE SCH (10:49)
[2020-03-05] MEDS: METOPROLOL TARTRATE 25 MG TAB PO SCH ×2 (10:49→22:00)
--- NOTE | 2020-03-05 17:18 | Progress Note ---
Assessment and Plan / Anoxic brain injury: suspected CT head: No acute abnormality. EEG ordered showed Generalized slowing. No seizures or epileptiform activity. -Patient now opening her eyes, can speak and able to follow minor command by nodding head - as needed haldol for agitation /Acute Respiratory failure -s/p intubation, s/p trach and PEG on 12/12 with mechanical ventilation, now on T-piece - CTA was done and negative for PE, - Echo quality is poor, showed diastolic dysfunction - continue weaning as tolerated /Anemia, microcytic - Status post 3 units PRBC transfusion, H&H low stable /Acute metabolic encephalopathy/toxic encephalopathy due to the above - cont supportive care /Hyperammonemia - likely from liver disease related to EtOH abuse - Patient had elevated ammonia level and treated with lactulose /Metabolic Acidosis -Alcohol ketoacidosis vs hypoprofusion -Continue to monitor /ELevated LFTs, stable now - due to ischemic hepatitis. /Leucocytosis with sepsis - Source MRSA bacteremia and MSSA pneumonia. UA showed pyuria. RUQ US showed no ascites. - Repeat TTE negative for vegetation. Completed 7 days of Ceftriaxone on . -Treated with Abx vancomycin 1 gm IV q 12 hour total 2 week till 12/30/2019 /MSSA pneumonia: Status post vancomycin till 12/30/2019 /ALcohol USe Disorder - given ongoing Alcohol use almost daily, s/p IV Thiamine - monitor /Severe hypokalemia -Repleted /Seizure disorder: treat with Keppra /H. Influenzae, tracheobronchitis, treated with abx /Moderate to severe fecal impaction - will add stool softner DNR CODE STATUS Disposition: prognosis guarded. Family okay for DNR, PT recommended subacute rehab, discharge pending on placement. negative for COVID 19 Brief History: 54-year-old female with a past medical history of Hypertension, Depression, Tobacco use Disorder, Alcohol use Disorder as confirmed by Daughter and pt's mother presents to the hospital status post cardiac arrest at home. EMS found pt [place]. They were unable to intubate patient with a ET tube because she was clenching down therefore Joe airway placed. Per the ED physician who evaluated pt, Patient presented with a pulse, intermittent respirations, and bagging support via Joe airway with O2 sat of 100%. Accu-Chek of 71 obtained by EMS. She was intubated in the ER and called for admission. Following admission patient was diagnosed with anoxic brain injury, sepsis with MRSA bacteremia and MSSA pneumonia, alcoholic liver disease. Family member initially wished for full code then changed to DNR, patient treated with IV antibiotics for sepsis, status post trach and PEG on 12/13/19. Weaned off from the vent and put on T- piece. Patient is uninsured, waiting for placement, guarded prognosis. Physical exam: General appearance: Present: other (elderly female, open eyes) - EENT Eyes: no scleral icterus, no conjunctival injection, pupil not reactive ENT: clear oral mucosa, dentition normal, no oropharyngeal erythema Ears: bilateral: normal - Neck Neck: trach on place - Respiratory Respiratory effort: other (on T-piece) Respiratory: bilateral: rales - Cardiovascular Rhythm: regular Heart Sounds: Present: S1 & S2. Absent: gallop, rub Extremities: pulses intact, No edema, normal color - Gastrointestinal General gastrointestinal: Present: soft, non-tender, non-distended, normal bowel sounds - Integumentary Integumentary: clear, warm, dry - Musculoskeletal Musculoskeletal: No joint swelling or tenderness - Neurologic Neurologic: other (2+ reflexes throughout). respond to commend and nods head. generalized weakness, verbal - Psychiatric Psychiatric: co-operative Subjective Date of service: 03/05/20 Principal diagnosis: Ac cardiopulmonary arrest; Ac hypoxemic resp failure; Acute encephalopathy Interval history: Patient seen and examined medical records reviewed Patient is alert and awake not in acute distress Tracheostomy on T-piece, Vital signs noted discharge pending on placement, remains on restraint Objective - Constitutional Vitals: Vital Signs - 12hr 03/05/20 03/05/20 07:54 10:00 Pulse Rate 94 H Pulse Rate [ 112 H From Monitor] Respiratory 18 Rate - Labs CBC & Chem 7: 03/06/20 03:37 03/06/20 03:37 Labs: Abnormal lab results 03/04/20 03/05/20 Range/Units 17:54 00:14 POC Glucose 118 H 134 H (70-105) HEART Score - HEART Score Troponin: Troponin T < 0.010 ng/mL (0.00-0.029) 11/22/19 23:27
[2020-03-05] MEDS: QUEtiapine 100 MG TAB FEEDTUBE SCH (22:00)
[2020-03-06] MEDS: HALOPERIDOL LACTATE 5 MG/1 ML INJ IM PRN (00:58)
[2020-03-06] MEDS: LEVALBUTEROL 0.63 MG/3 ML NEBU IH SCH ×4 (02:12→21:50)
[2020-03-06] MEDS: ALPRAZolam 1 MG TAB PO PRN ×3 (02:37→20:39)
[2020-03-06 04:27] LABS: Basophils # (Auto) 0.1 K/mm3 (0.0-0.1); Basophils % (Auto) 0.7 % (0.0-1.8); Eosinophils # (Auto) 0.2 K/mm3 (0.0-0.4); Eosinophils % (Auto) 2.8 % (0.0-4.3); Hematocrit 33.3 % (30.3-42.9); Hemoglobin 11.2 gm/dl (10.1-14.3); Lymphocytes # (Auto) 2.2 K/mm3 (1.2-5.4); Lymphocytes % (Auto) 27.8 % (13.4-35.0); Mean Corpuscular HGB Conc 34 % (30-34); Mean Corpuscular Volume 88 fl (79-97); Monocytes # (Auto) 0.7 K/mm3 (0.0-0.8); Monocytes % (Auto) 9.1 % (0.0-7.3); Platelet Count 550 K/mm3 (140-440); Red Blood Count 3.79 M/mm3 (3.65-5.03); Red Cell Distribution Width 14.6 % (13.2-15.2)
[2020-03-06 04:42] LABS: BUN/Creatinine Ratio 52; Blood Urea Nitrogen 26 mg/dL (7-17); Calcium 10.4 mg/dL (8.4-10.2); Hemolysis Index 20
[2020-03-06] MEDS: GLYCOPYRROLATE 1 MG TAB PO SCH ×3 (07:47→20:39)
[2020-03-06] MEDS: ACETYLCYSTEINE 20% 200 MG/1 ML *FOR INHALATION USE INHALATION SCH ×2 (08:43→21:50)
[2020-03-06] MEDS: levETIRAcetam 500 MG/5 ML ORAL LIQD PO SCH ×2 (09:45→22:32)
[2020-03-06] MEDS: NICOTINE 21 MG/24 HR PATCH TD SCH (09:46)
[2020-03-06] MEDS: DOCUSATE SODIUM 100 MG/10 ML ORAL LIQD FEEDTUBE SCH ×2 (09:46→22:32)
[2020-03-06] MEDS: METOPROLOL TARTRATE 25 MG TAB PO SCH ×2 (09:46→22:32)
[2020-03-06] MEDS: SCOPOLAMINE TRANSDERMAL PATCH 72 HR TD SCH (09:47)
[2020-03-06] MEDS: hydrOXYzine PAMOATE 25 MG CAP PO SCH ×2 (09:48→22:32)
[2020-03-06] MEDS: LANSOPRAZOLE 30 MG SOLUTAB FEEDTUBE SCH (09:49)
[2020-03-06] MEDS: MIRTAZAPINE 30 MG TAB PO SCH (09:49)
[2020-03-06] MEDS: SERTRALINE 50 MG TAB PO SCH (10:13)
[2020-03-06] MEDS: QUEtiapine 100 MG TAB FEEDTUBE SCH ×2 (10:13→22:32)
--- NOTE | 2020-03-06 15:17 | Progress Note ---
Assessment and Plan / Anoxic brain injury: suspected CT head: No acute abnormality. EEG ordered showed Generalized slowing. No seizures or epileptiform activity. -Patient now opening her eyes, can speak and able to follow command - as needed haldol for agitation /Acute Respiratory failure - due to MSSA PNA -s/p intubation, s/p trach and PEG on 12/12 with mechanical ventilation, now on T-piece - CTA was done and negative for PE, - Echo quality is poor, showed diastolic dysfunction - continue weaning as tolerated /Anemia, microcytic - Status post 3 units PRBC transfusion, H&H low stable /Acute metabolic encephalopathy/toxic encephalopathy due to the above - cont supportive care /Hyperammonemia - likely from liver disease related to EtOH abuse - Patient had elevated ammonia level and treated with lactulose /Metabolic Acidosis -Alcohol ketoacidosis vs hypoprofusion -Continue to monitor /ELevated LFTs, stable now - due to ischemic hepatitis. /Leucocytosis with sepsis - Source MRSA bacteremia and MSSA pneumonia. UA showed pyuria. RUQ US showed no ascites. - Repeat TTE negative for vegetation. Completed 7 days of Ceftriaxone on 11/28. -Treated with Abx vancomycin 1 gm IV q 12 hour total 2 week till 12/30/2019 /MSSA pneumonia: Status post vancomycin till 12/30/2019 /ALcohol USe Disorder - given ongoing Alcohol use almost daily, s/p IV Thiamine - monitor /Severe hypokalemia -Repleted /Seizure disorder: treat with Keppra /H. Influenzae, tracheobronchitis, treated with abx /Moderate to severe fecal impaction - will add stool softner DNR CODE STATUS Disposition: prognosis guarded. Family okay for DNR, PT recommended subacute rehab, discharge pending on placement. negative for COVID 19 Brief History: 54-year-old female with a past medical history of Hypertension, Depression, Tobacco use Disorder, Alcohol use Disorder as confirmed by Daughter and pt's mother presents to the hospital status post cardiac arrest at home. EMS found pt in [place]. They were unable to intubate patient with a ET tube because she was clenching down therefore Joe airway placed. Per the ED physician who evaluated pt, Patient presented with a pulse, intermittent respirations, and bagging support via Joe airway with O2 sat of 100%. Accu-Chek of 71 obtained by EMS. She was intubated in the ER and called for admission. Following admission patient was diagnosed with anoxic brain injury, sepsis with MRSA bacteremia and MSSA pneumonia, alcoholic liver disease. Family member initially wished for full code then changed to DNR, patient treated with IV antibiotics for sepsis, status post trach and PEG on 12/13/19. Weaned off from the vent and put on T- piece. Patient is uninsured, waiting for placement, guarded prognosis. Physical exam: General appearance: Present: other (elderly female, open eyes) - EENT Eyes: no scleral icterus, no conjunctival injection, pupil not reactive ENT: clear oral mucosa, dentition normal, no oropharyngeal erythema Ears: bilateral: normal - Neck Neck: trach on place - Respiratory Respiratory effort: other (on T-piece) Respiratory: bilateral: rales - Cardiovascular Rhythm: regular Heart Sounds: Present: S1 & S2. Absent: gallop, rub Extremities: pulses intact, No edema, normal color - Gastrointestinal General gastrointestinal: Present: soft, non-tender, non-distended, normal bowel sounds - Integumentary Integumentary: clear, warm, dry - Musculoskeletal Musculoskeletal: No joint swelling or tenderness - Neurologic Neurologic: other (2+ reflexes throughout). respond to commend and nods head. generalized weakness, verbal - Psychiatric Psychiatric: co-operative Subjective Date of service: 03/06/20 Principal diagnosis: Ac cardiopulmonary arrest; Ac hypoxemic resp failure; Acute encephalopathy Interval history: Patient seen and examined medical records reviewed Patient is alert and awake not in acute distress Tracheostomy on T-piece, Vital signs noted discharge pending on placement, remains on restraint Objective - Constitutional Vitals: Vital Signs - 12hr 03/06/20 03/06/20 03/06/20 04:37 07:50 08:00 Temperature 98.0 F Pulse Rate 85 Pulse Rate [ Anterior Bilateral Throughout] Pulse Rate [ From Monitor] Respiratory 18 Rate Respiratory Rate [Anterior Bilateral Throughout] Blood Pressure 142/87 O2 Sat by Pulse Oximetry O2 Sat by Pulse 98 Oximetry [ Assessment] 03/06/20 03/06/20 03/06/20 08:27 08:44 08:45 Temperature 97.5 F L Pulse Rate 92 H Pulse Rate [ 95 H Anterior Bilateral Throughout] Pulse Rate [ From Monitor] Respiratory 18 Rate Respiratory 18 Rate [Anterior Bilateral Throughout] Blood Pressure 124/77 O2 Sat by Pulse 98 99 Oximetry O2 Sat by Pulse Oximetry [ Assessment] 03/06/20 03/06/20 09:46 10:00 Temperature Pulse Rate 98 H Pulse Rate [ Anterior Bilateral Throughout] Pulse Rate [ 85 From Monitor] Respiratory 18 Rate Respiratory Rate [Anterior Bilateral Throughout] Blood Pressure 124/77 O2 Sat by Pulse 98 Oximetry O2 Sat by Pulse Oximetry [ Assessment] - Labs CBC & Chem 7: 03/06/20 03:37 03/06/20 03:37 Labs: Abnormal lab results 03/06/20 03/06/20 03/06/20 Range/Units 03:37 03:37 06:29 Plt Count 550 H (140-440) K/mm3 Kinney % (Auto) 9.1 H (0.0-7.3) % BUN 26 H (7-17) mg/dL Creatinine 0.5 L (0.7-1.2) mg/dL POC Glucose 128 H (70-105) Calcium 10.4 H (8.4-10.2) mg/dL HEART Score - HEART Score Troponin: Troponin T < 0.010 ng/mL (0.00-0.029) 11/22/19 23:27
[2020-03-07] MEDS: LEVALBUTEROL 0.63 MG/3 ML NEBU IH SCH ×4 (02:26→21:56)
[2020-03-07] MEDS: ALPRAZolam 1 MG TAB PO PRN ×2 (05:38→16:35)
--- NOTE | 2020-03-07 08:11 | Progress Note ---
Assessment and Plan Assessment and plan: 54-year-old female with a past medical history of Hypertension, Depression, Tobacco use Disorder, Alcohol use Disorder as confirmed by Daughter and pt's mother presents to the hospital status post cardiac arrest at home. EMS found pt in [facility]. They were unable to intubate patient with a ET tube because she was clenching down therefore Joe airway placed. Per the ED physician who evaluated pt, Patient presented with a pulse, intermittent respirations, and bagging support via Joe airway with O2 sat of 100%. Accu-Chek of 71 obtained by EMS. She was intubated in the ER and called for admission. Following admission patient was diagnosed with anoxic brain injury, sepsis with MRSA bacteremia and MSSA pneumonia, alcoholic liver disease. Family member initially wished for full code then changed to DNR, patient treated with IV antibiotics for sepsis, status post trach and PEG on 12/13/19. Weaned off from the vent and put on T- piece. Patient is uninsured, waiting for placement, guarded prognosis. 03/07: Returning to service no acute changes are noted. Continue current management while awaiting placement. Intermittent labs. Base of neck also around tracheostomy tube preventing downgrading. Continue appropriate wound care. / Anoxic brain injury: suspected CT head: No acute abnormality. EEG ordered showed Generalized slowing. No seizures or epileptiform activity. -Patient now opening her eyes, can speak and able to follow command - as needed haldol for agitation /Acute Respiratory failure - due to MSSA PNA -s/p intubation, s/p trach and PEG on 12/12 with mechanical ventilation, now on T-piece - CTA was done and negative for PE, - Echo quality is poor, showed diastolic dysfunction - continue weaning as tolerated -Continue appropriate and adequate tracheostomy care /Tracheostomy site ulceration -Continue appropriate wound management try to keep area dry. /Anemia, microcytic - Status post 3 units PRBC transfusion, H&H low stable /Acute metabolic encephalopathy/toxic encephalopathy due to the above - cont supportive care /Hyperammonemia - likely from liver disease related to EtOH abuse - Patient had elevated ammonia level and treated with lactulose /Metabolic Acidosis -Alcohol ketoacidosis vs hypoprofusion -Continue to monitor /ELevated LFTs, stable now - due to ischemic hepatitis. /Leucocytosis with sepsis - Source MRSA bacteremia and MSSA pneumonia. UA showed pyuria. RUQ US showed no ascites. - Repeat TTE negative for vegetation. Completed 7 days of Ceftriaxone on 11/29/2019. -Treated with Abx vancomycin 1 gm IV q 12 hour total 2 week till 12/30/2019 /MSSA pneumonia: Status post vancomycin till 12/30/2019 /ALcohol USe Disorder - given ongoing Alcohol use almost daily, s/p IV Thiamine - monitor /Severe hypokalemia -Repleted /Seizure disorder: treat with Keppra /H. Influenzae, tracheobronchitis, treated with abx /Moderate to severe fecal impaction - will add stool softner DNR CODE STATUS Disposition: prognosis guarded. Family okay for DNR, PT recommended subacute rehab, discharge pending on placement. negative for COVID 19 History Interval history: Patient seen and examined no clinical change at this time continues on ATC at 28% off oxygen. Intermittent agitation persist. Hospitalist Physical - Physical exam Narrative exam: General appearance: Present: Appears older than stated age tries to talk. Intermittent agitation - EENT Eyes: no scleral icterus, no conjunctival injection, pupil not reactive ENT: clear oral mucosa, dentition normal, no oropharyngeal erythema Ears: bilateral: normal - Neck Neck: trach on place with mild ulceration at the base. - Respiratory Respiratory effort: other (on T-piece) Respiratory: bilateral: rales - Cardiovascular Rhythm: regular Heart Sounds: Present: S1 & S2. Absent: gallop, rub Extremities: pulses intact, No edema, normal color - Gastrointestinal General gastrointestinal: Present: soft, non-tender, non-distended, normal bowel sounds - Integumentary Integumentary: clear, warm, dry - Musculoskeletal Musculoskeletal: No joint swelling or tenderness - Neurologic Neurologic: other (2+ reflexes throughout). respond to commend and nods head. generalized weakness, verbal - Psychiatric Psychiatric: co-operative - Constitutional Vitals: Temp Pulse Resp BP Pulse Ox 98 F 68 20 100/68 99 03/07/20 00:17 03/07/20 00:17 03/07/20 00:17 03/07/20 00:17 03/07/20 01:45 General appearance: Present: mild distress, cachectic, disheveled, other (Noncommunicative) HEART Score - HEART Score Troponin: Troponin T < 0.010 ng/mL (0.00-0.029) 11/22/19 23:27 Results - Labs CBC & Chem 7: 06/18/20 03:37 03/06/20 03:37 Labs: Laboratory Last Values WBC 8.1 K/mm3 (4.5-11.0) 03/06/20 03:37 RBC 3.79 M/mm3 (3.65-5.03) 03/06/20 03:37 Hgb 11.2 gm/dl (10.1-14.3) 03/06/20 03:37 Hct 33.3 % (30.3-42.9) 03/06/20 03:37 MCV 88 fl (79-97) 03/06/20 03:37 MCH 30 pg (28-32) 03/06/20 03:37 MCHC 34 % (30-34) 03/06/20 03:37 RDW 14.6 % (13.2-15.2) 03/06/20 03:37 Plt Count 550 K/mm3 (140-440) H 03/06/20 03:37 Lymph % (Auto) 27.8 % (13.4-35.0) 03/06/20 03:37 [place] % (Auto) 9.1 % (0.0-7.3) H 03/06/20 03:37 Eos % (Auto) 2.8 % (0.0-4.3) 03/06/20 03:37 Baso % (Auto) 0.7 % (0.0-1.8) 03/06/20 03:37 Lymph # 2.2 K/mm3 (1.2-5.4) 03/06/20 03:37 [place] # 0.7 K/mm3 (0.0-0.8) 03/06/20 03:37 Eos # 0.2 K/mm3 (0.0-0.4) 03/06/20 03:37 Baso # 0.1 K/mm3 (0.0-0.1) 03/06/20 03:37 Add Manual Diff Complete 12/25/19 03:47 Total Counted 200 12/25/19 03:47 Seg Neutrophils % 59.6 % (40.0-70.0) 03/06/20 03:37 Seg Neuts % (Manual) 97.5 % (40.0-70.0) H 12/25/19 03:47 Band Neutrophils % 0 % 12/25/19 03:47 Lymphocytes % (Manual) 1.0 % (13.4-35.0) L 12/25/19 03:47 Reactive Lymphs % (Man) 0 % 12/25/19 03:47 Monocytes % (Manual) 1.5 % (0.0-7.3) 12/25/19 03:47 Eosinophils % (Manual) 0 % (0.0-4.3) 12/25/19 03:47 Basophils % (Manual) 0 % (0.0-1.8) 12/25/19 03:47 Metamyelocytes % 0 % 12/25/19 03:47 Myelocytes % 0 % 12/25/19 03:47 Promyelocytes % 0 % 12/25/19 03:47 Blast Cells % 0 % 12/25/19 03:47 Nucleated RBC % Not Reportable 12/25/19 03:47 Seg Neutrophils # 4.8 K/mm3 (1.8-7.7) 03/06/20 03:37 Seg Neutrophils # Man 35.3 K/mm3 (1.8-7.7) H 12/25/19 03:47 Band Neutrophils # 0.0 K/mm3 12/25/19 03:47 Lymphocytes # (Manual) 0.4 K/mm3 (1.2-5.4) L 12/25/19 03:47 Abs React Lymphs (Man) 0.0 K/mm3 12/25/19 03:47 Monocytes # (Manual) 0.5 K/mm3 (0.0-0.8) 12/25/19 03:47 Eosinophils # (Manual) 0.0 K/mm3 (0.0-0.4) 12/25/19 03:47 Basophils # (Manual) 0.0 K/mm3 (0.0-0.1) 12/25/19 03:47 Metamyelocytes # 0.0 K/mm3 12/25/19 03:47 Myelocytes # 0.0 K/mm3 12/25/19 03:47 Promyelocytes # 0.0 K/mm3 12/25/19 03:47 Blast Cells # 0.0 K/mm3 12/25/19 03:47 Pathologist Review 12/13/19 07:48 WBC Morphology Not Reportable 12/25/19 03:47 Hypersegmented Neuts Not Reportable 12/25/19 03:47 Hyposegmented Neuts Not Reportable 12/25/19 03:47 Hypogranular Neuts Not Reportable 12/25/19 03:47 Smudge Cells Not Reportable 12/25/19 03:47 Toxic Granulation Not Reportable 12/25/19 03:47 Toxic Vacuolation Not Reportable 12/25/19 03:47 Dohle Bodies Not Reportable 12/25/19 03:47 Pelger-Huet Anomaly Not Reportable 12/25/19 03:47 Dominique Rods Not Reportable 12/25/19 03:47 Platelet Estimate Consistent w auto 12/25/19 03:47 Clumped Platelets Not Reportable 12/25/19 03:47 Plt Clumps, EDTA Not Reportable 12/25/19 03:47 Large Platelets Not Reportable 12/25/19 03:47 Giant Platelets Not Reportable 12/25/19 03:47 Platelet Satelliting Not Reportable 12/25/19 03:47 Plt Morphology Comment Not Reportable 12/25/19 03:47 RBC Morphology Not Reportable 12/25/19 03:47 Dimorphic RBCs Not Reportable 12/25/19 03:47 Polychromasia Not Reportable 12/25/19 03:47 Hypochromasia Not Reportable 12/25/19 03:47 Poikilocytosis Not Reportable 12/25/19 03:47 Anisocytosis 1+ 12/25/19 03:47 Microcytosis Not Reportable 12/25/19 03:47 Macrocytosis Not Reportable 12/25/19 03:47 Spherocytes Not Reportable 12/25/19 03:47 Pappenheimer Bodies Not Reportable 12/25/19 03:47 Sickle Cells Not Reportable 12/25/19 03:47 Target Cells Not Reportable 12/25/19 03:47 Tear Drop Cells Not Reportable 12/25/19 03:47 Ovalocytes Not Reportable 12/25/19 03:47 Helmet Cells Not Reportable 12/25/19 03:47 [place] Bodies Not Reportable 12/25/19 03:47 [place] Rings Not Reportable 12/25/19 03:47 Jamshid Cells Not Reportable 12/25/19 03:47 Bite Cells Not Reportable 12/25/19 03:47 Crenated Cell Not Reportable 12/25/19 03:47 Elliptocytes Not Reportable 12/25/19 03:47 Acanthocytes (Spur) Not Reportable 12/25/19 03:47 Rouleaux Not Reportable 12/25/19 03:47 Hemoglobin C Crystals Not Reportable 12/25/19 03:47 Schistocytes Not Reportable 12/25/19 03:47 Malaria parasites Not Reportable 12/25/19 03:47 Gregg Bodies Not Reportable 12/25/19 03:47 Hem Pathologist Commnt No 12/25/19 03:47 PT 17.0 Sec. (12.2-14.9) H 11/23/19 03:47 INR 1.36 (0.87-1.13) H 11/23/19 03:47 APTT 128.2 Sec. (24.2-36.6) H* 11/23/19 03:47 Heparin Anti-Xa Level 0.31 U.I./ml (0.3-0.7) 11/23/19 09:03 ABG pH 7.429 pH Units (7.350-7.450) 01/09/20 08:51 ABG pCO2 39.1 mm Hg 01/09/20 08:51 ABG pO2 94.3 mm Hg (80.0-90.0) H 01/09/20 08:51 ABG HCO3 25.3 mmol/L (20.0-26.0) 01/09/20 08:51 ABG O2 Saturation 97.4 % (95.0-99.0) 01/09/20 08:51 ABG O2 Content 12.9 (0.0-44) 01/09/20 08:51 ABG Base Excess 1.0 mmol/L (-2.0-3.0) 01/09/20 08:51 ABG Hemoglobin 9.5 gm/dl (12.0-16.0) L 01/09/20 08:51 ABG Carboxyhemoglobin 1.3 % (0.0-5.0) 01/09/20 08:51 ABG Methemoglobin 0.4 % (0.0-1.5) 01/09/20 08:51 Oxyhemoglobin 95.7 % (95.0-99.0) 01/09/20 08:51 FiO2 35 % 01/09/20 08:51 Sodium 137 mmol/L (137-145) 03/06/20 03:37 Potassium 3.8 mmol/L (3.6-5.0) 03/06/20 03:37 Chloride 99.2 mmol/L (98-107) 03/06/20 03:37 Carbon Dioxide 24 mmol/L (22-30) 03/06/20 03:37 Anion Gap 18 mmol/L 03/06/20 03:37 BUN 26 mg/dL (7-17) H 03/06/20 03:37 Creatinine 0.5 mg/dL (0.7-1.2) L 03/06/20 03:37 Estimated GFR > 60 ml/min 03/06/20 03:37 BUN/Creatinine Ratio 52 % 03/06/20 03:37 Glucose 98 mg/dL (65-100) 03/06/20 03:37 POC Glucose 113 (70-105) H 03/07/20 06:37 Lactic Acid 1.80 mmol/L (0.7-2.0) 11/25/19 05:05 Calcium 10.4 mg/dL (8.4-10.2) H 03/06/20 03:37 Ionized Calcium 4.5 mg/dL (4.8-5.6) L 11/23/19 06:32 Phosphorus 4.20 mg/dL (2.5-4.5) D 11/28/19 08:59 Magnesium 1.90 mg/dL (1.7-2.3) 02/28/20 03:40 Total Bilirubin 0.40 mg/dL (0.1-1.2) 12/13/19 07:48 AST 27 units/L (5-40) 12/13/19 07:48 ALT 26 units/L (7-56) 12/13/19 07:48 Alkaline Phosphatase 316 units/L (35-129) H 12/13/19 07:48 Ammonia 42.0 umol/L (25-60) 11/29/19 13:41 Total Creatine Kinase 139 units/L (30-135) H 11/22/19 23:27 CK-MB (CK-2) 8.3 ng/mL (0.0-4.0) H 11/22/19 23:27 CK-MB (CK-2) Rel Index 5.9 (0-4) H 11/22/19 23:27 Troponin T < 0.010 ng/mL (0.00-0.029) 11/22/19 23:27 Total Protein 6.8 g/dL (6.3-8.2) 12/13/19 07:48 Albumin 2.4 g/dL (3.9-5) L 12/13/19 07:48 Albumin/Globulin Ratio 0.5 % 12/13/19 07:48 Lipase 18 units/L (13-60) 11/23/19 00:34 Procalcitonin 1.09 ng/mL (<0.15) 11/23/19 04:53 TSH 1.010 mlU/mL (0.270-4.200) 02/12/20 07:36 Free T4 1.08 ng/dL (0.76-1.46) 02/12/20 07:36 Urine Color Yellow (Yellow) 12/16/19 Unknown Urine Turbidity Slightly-cloudy (Clear) 12/16/19 Unknown Urine pH 5.0 (5.0-7.0) 12/16/19 Unknown Ur Specific [place] 1.018 (1.003-1.030) 12/16/19 Unknown Urine Protein 30 mg/dl mg/dL (Negative) 12/16/19 Unknown Urine Glucose (UA) Neg mg/dL (Negative) 12/16/19 Unknown Urine Ketones Neg mg/dL (Negative) 12/16/19 Unknown Urine Blood Sm (Negative) 12/16/19 Unknown Urine Nitrite Neg (Negative) 12/16/19 Unknown Urine Bilirubin Neg (Negative) 12/16/19 Unknown Urine Urobilinogen < 2.0 mg/dL (<2.0) 12/16/19 Unknown Ur Leukocyte Esterase Neg (Negative) 12/16/19 Unknown Urine WBC (Auto) 6.0 /HPF (0.0-6.0) 12/16/19 Unknown Urine RBC (Auto) 9.0 /HPF (0.0-6.0) 12/16/19 Unknown U Epithel Cells (Auto) < 1.0 /HPF (0-13.0) 12/16/19 Unknown Urine Bacteria (Auto) 2+ /HPF (Negative) 11/22/19 23:17 Hyaline Casts 3 /LPF 12/16/19 Unknown Granular Casts 3 /LPF 12/16/19 Unknown Urine Mucus Few /HPF 12/16/19 Unknown Vancomycin Trough 33.8 ug/mL (5.0-20.0) H 12/21/19 08:56 Random Vancomycin 16.2 ug/mL (0-40.0) 12/24/19 04:31 Salicylates < 0.3 mg/dL (2.8-20.0) L 11/22/19 23:27 Urine Opiates Screen Presumptive negative 11/22/19 23:17 Urine Methadone Screen Presumptive negative 11/22/19 23:17 Acetaminophen < 5.0 ug/mL (10.0-30.0) L 11/22/19 23:27 Ur Barbiturates Screen Presumptive negative 11/22/19 23:17 Ur Phencyclidine Scrn Presumptive negative 11/22/19 23:17 Ur Amphetamines Screen Presumptive negative 11/22/19 23:17 U Benzodiazepines Scrn Presumptive negative 11/22/19 23:17 Urine Cocaine Screen Presumptive negative 11/22/19 23:17 U Marijuana (THC) Screen Presumptive negative 11/22/19 23:17 Drugs of Abuse Note Disclamer 11/22/19 23:17 Plasma/Serum Alcohol 0.08 % (0-0.07) H 11/22/19 23:27 Coronavirus (PCR) Negative (Negative) 02/05/20 07:50 Hepatitis A IgM Ab Non-reactive (NonReactive) 11/23/19 01:19 Hep Bs Antigen Non-reactive (Negative) 11/23/19 01:19 Hep B Core IgM Ab Non-reactive (NonReactive) 11/23/19 01:19 Hepatitis C Antibody Non-reactive (NonReactive) 11/23/19 01:19 Blood Type O POSITIVE 12/21/19 14:54 Antibody Screen Negative 12/21/19 14:54 Crossmatch See Detail 12/21/19 14:54 - Diagnostic Impressions Diagnostic Impressions: Echocardiogram 11/23/19 03:58 Transthoracic Echocardiogram Indication: Cardiac arrest BP: 131/89 HR: 115 Conclusions *The study quality is technically difficult. *Global left ventricular wall motion and contractility are within normal limits. *The estimated ejection fraction is 55-60%. *Abnormal left ventricular diastolic filling is observed, consistent with impaired relaxation. *There is no pericardial effusion. Findings Procedure Info: The study quality is technically difficult. The study was technically limited due to the patient's inability to lay in the left lateral decubitus position. Left Ventricle: The left ventricular chamber size is normal. There is no left ventricular hypertrophy. Global left ventricular wall motion and contractility are within normal limits. Global left ventricular systolic function is normal. The estimated ejection fraction is 55-60%. Abnormal left ventricular diastolic filling is observed, consistent with impaired relaxation. Left Atrium: The left atrial chamber size is normal. Aortic Valve: The aortic valve leaflets are mildly thickened. Mitral Valve: The mitral valve leaflets are mildly thickened. There is no evidence of mitral regurgitation. Tricuspid Valve: The tricuspid valve leaflets are normal. There is trace tricuspid regurgitation. The right ventricular systolic pressure is calculated at 33 mmHg. Pulmonic Valve: The pulmonic valve appears normal. Pericardium: The pericardium appears normal. There is no pericardial effusion. Aorta: The aorta appears normal. Venous: The inferior vena cava appears normal in size. Measurements Chambers 2D Name Value Normal Range IVSd (2D) 0.94 cm (0.6 - 1.1) LVPWd (2D) 0.81 cm (0.6 - 1.1) LVIDd (2D) 3.6 cm (3.7 - 5.6) LVIDs (2D) 2.27 cm (2 - 3.8) LV FS (2D) 36.93 % - EF Teichholz (2D) 67.76 % - Ao root diameter (2D) 3.03 cm (2 - 3.7) Volumes/Mass Name Value Normal Range LA ESV SP 4CH (A/L) 16.89 ml - LA ESV SP 4CH (MOD) 15.52 ml - Diastolic/Systolic Function Name Value Normal Range MV E-wave Vmax 0.55 m/sec - MV deceleration time 200.89 msec - MV A-wave Vmax 0.68 m/sec - MV E:A ratio 0.82 ratio - Aortic Valve Name Value Normal Range AV Vmax 1.1 m/sec - AV VTI 15.9 cm - AV peak gradient 4.86 mmHg - AV mean gradient 2.59 mmHg - LVOT diameter 2 cm - LVOT Vmax 1.03 m/sec - LVOT VTI 15.87 cm - LVOT peak gradient 4.24 mmHg - LVOT mean gradient 2.41 mmHg - SV LVOT 49.77 ml - JOSÉ MIGUEL (continuity Vmax) 2.93 cm2 - JOSÉ MIGUEL (continuity VTI) 3.13 cm2 - Tricuspid Valve Name Value Normal Range TR Vmax 2.74 m/sec - TR peak gradient 303 mmHg - RAP 3 mmHg - RVSP 33 mmHg - IVC diameter 1.77 cm (1.2 - 2.3) Pulmonic Valve/Qp:Qs Name Value Normal Range PV Vmax 0.77 m/sec - PV peak gradient 2.4 mmHg - PV acceleration time 114.18 msec - Echocardiogram Limited Views 12/17/19 14:53 Transthoracic Echocardiogram Indication: R/O Vegetations BP: 144/83 HR: 133 Conclusions *Global left ventricular systolic function is mildly decreased. *The estimated ejection fraction is 45-50%. *A trivial pericardial effusion is visualized. Findings Left Ventricle: The left ventricular chamber size is normal. Global left ventricular systolic function is mildly decreased. The estimated ejection fraction is 45-50%. Left Atrium: The left atrial chamber size is normal. Right Ventricle: The right ventricular cavity size is normal. Right Atrium: The right atrial cavity size is normal. Aortic Valve: The aortic valve is not well visualized. There is no evidence of aortic regurgitation. Mitral Valve: The mitral valve leaflets are mildly thickened. There is trace of mitral regurgitation. Tricuspid Valve: The tricuspid valve leaflets are mildly thickened. There is trace tricuspid regurgitation. The right ventricular systolic pressure is calculated at 29 mmHg. Pulmonic Valve: The pulmonic valve is not well visualized. There is no evidence of pulmonic regurgitation. Pericardium: A trivial pericardial effusion is visualized. Aorta: There is no dilatation of the ascending aorta. There is no dilatation of the aortic root. Venous: The inferior vena cava appears normal in size. There is a greater than 50% respiratory change in the inferior vena cava dimension. Measurements Chambers 2D Name Value Normal Range IVSd (2D) 0.83 cm (0.6 - 1.1) LVPWd (2D) 0.98 cm (0.6 - 1.1) LVIDd (2D) 3.71 cm (3.7 - 5.6) LVIDs (2D) 2.93 cm (2 - 3.8) LV FS (2D) 21.12 % - EF Teichholz (2D) 43.71 % - Ao root diameter (2D) 3.02 cm (2 - 3.7) Volumes/Mass Name Value Normal Range LA ESV SP 4CH (A/L) 36.8 ml - LA ESV SP 2CH (A/L) 45.89 ml - LA ESV BP (A/L) 42.35 ml - LA ESV BP (A/L) index 26.63 ml/m2 - LA ESV SP 4CH (MOD) 34.42 ml - LA ESV SP 2CH (MOD) 44.21 ml - LA ESV BP (MOD) 39.82 ml - LA ESV BP (MOD) index 25.05 ml/m2 - Aortic Valve Name Value Normal Range LVOT diameter 1.63 cm - Tricuspid Valve Name Value Normal Range TR Vmax 2.56 m/sec - TR peak gradient 26 mmHg - RAP 3 mmHg - RVSP 29 mmHg - IVC diameter 1.83 cm (1.2 - 2.3) [place]/IV: Voiding Method Incontinent IV Catheter Type [Forearm] Peripheral IV IV Catheter Type [Left Forearm INT / Saline Lock ] IV Catheter Type [Right INT / Saline Lock Antecubital] IV Catheter Type [Right Hand] Peripheral IV IV Catheter Type [Right Wrist] Peripheral IV IV Catheter Type [Left Wrist] Peripheral IV IV Catheter Type [Left Peripheral IV Antecubital] IV Catheter Type [Right INT / Saline Lock Forearm] IV Catheter Type [Left Hand] INT / Saline Lock Active Medications - Current Medications Current Medications: Generic Name Dose Route Start Last Admin Trade Name Devanteq PRN Reason Stop Dose Admin Acetaminophen 650 mg 12/06/19 10:25 02/24/20 21:11 Tylenol FEEDTUBE 650 mg Q6H PRN Administration TEMP >/=100.3 Acetylcysteine 200 mg 02/16/20 20:00 03/06/20 21:50 Mucomyst Inhalation INHALATION 200 mg Q12HRT LUCHO Administration Alprazolam 1 mg 02/21/20 18:24 03/07/20 05:38 Xanax PO 1 mg Q8H PRN Administration Anxiety Lipase/Protease/Amylase 1 each 11/23/19 11:[address] 10,500 Unit FEEDTUBE PRN PRN Use w/ sod bicarb for FT Bisacodyl 10 mg 02/06/20 13:57 Dulcolax [place] QDAY PRN Constipation unrelieved by MOM Docusate Sodium 100 mg 02/18/20 22:00 03/06/20 22:32 Colace FEEDTUBE 100 mg BID LUCHO Administration Enoxaparin Sodium 40 mg 03/07/20 22:00 Enoxaparin SUB-Q QDAY@2200 LUCHO Glycopyrrolate 2 mg 12/31/19 20:00 03/06/20 20:39 Robinul PO 2 mg TID LUCHO Administration Haloperidol Lactate 5 mg 03/05/20 09:22 03/06/20 00:58 Haldol IM 5 mg Q6H PRN Administration Agitation Hydralazine HCl 10 mg 11/24/19 00:45 03/03/20 05:57 Apresoline IV 10 mg Q6H PRN Administration SBP > 160 Hydroxyzine Pamoate 25 mg 12/06/19 10:00 03/06/20 22:32 Vistaril PO 25 mg BID LUCHO Administration Lansoprazole 30 mg 11/27/19 10:00 03/06/20 09:49 Prevacid Solutab FEEDTUBE 30 mg QDAY LUCHO Administration Levalbuterol HCl 0.63 mg 02/17/20 00:00 03/07/20 02:26 Xopenex IH Not Given Q8HRT [facility] Levetiracetam 500 mg 11/29/19 10:00 03/06/20 22:32 Keppra PO 500 mg BID LUCHO Administration Metoprolol Tartrate 12.5 mg 02/23/20 22:00 03/06/20 22:32 Metoprolol PO 12.5 mg BID LUCHO Administration Mirtazapine 30 mg 12/06/19 10:00 03/06/20 09:49 Remeron PO 30 mg DAILY LUCHO Administration Nicotine 21 mg 02/16/20 13:00 03/06/20 09:46 Habitrol TD 21 mg QDAY LUCHO Administration Ondansetron HCl 4 mg 12/10/19 07:53 02/25/20 02:51 Zofran IV 4 mg Q4H PRN Administration Nausea And Vomiting Polyethylene Glycol 17 gm 02/06/20 13:57 Miralax 3350 PO QDAY PRN Constipation Quetiapine Fumarate 100 mg 03/06/20 10:00 03/06/20 22:32 Seroquel FEEDTUBE 100 mg BID LUCHO Administration Scopolamine 1 each 02/08/20 15:00 03/06/20 09:47 Transderm-Scop TD 1 each Q3D LUCHO Administration Sertraline HCl 25 mg 01/01/20 10:00 03/06/20 10:13 Zoloft PO 25 mg QDAY LUCHO Administration Simple Syrup 15 ml 11/23/19 11:50 Simple Syrup FEEDTUBE PRN PRN Hypoglycemia BG<70 Simple Syrup 30 ml 11/23/19 11:50 Simple Syrup FEEDTUBE PRN PRN Hypoglycemia Sodium Bicarbonate 325 mg 11/23/19 11:50 Sodium Bicarbonate FEEDTUBE PRN PRN For Clogged Feeding Tube Nutrition/Malnutrition Assess - Dietary Evaluation Nutrition/Malnutrition Findings: Nutrition Notes Start: 11/23/19 11:29 Freq: Status: Active Protocol: Document 02/29/20 13:36 LM (Rec: 02/29/20 13:39 LM [id number]) Nutrition Notes Initial or Follow up Reassessment Current Diagnosis Hypertension Other Pertinent Diagnosis Cardaic arrest, ETOH dependence, UTI Current Diet Jev[place] 1.2 at 60ml/hr Labs/Tests Reviewed Pertinent Medications Reviewed Height 5 ft 6 in Weight 49.8 kg [place] Body Weight (kg) 59.09 BMI 17.7 Weight change and time frame Wt change noted Subjective/Other Information TF running at goal and pt is tolerating. Percent of energy/protein needs met: 91%/100% Burn Absent Trauma Absent GI Symptoms None Current % PO Negligible Interpretation of Weight Loss (severe) >2% in 1 week Muscle Mass Mild Depletion (non-severe) #2 Nutrition Diagnosis Malnutrition As Evidenced by Signs and Symptoms Pt meeting over 80% of energy and protein needs Diagnosis Progress(for reassessment Improved documentation) #1 Nutrition Diagnosis Inadequate oral intake Diagnosis Progress(for reassessment Continues documentation) Is patient on ventilator? No Is Patient Ambulatory and/or Out of Bed No REE-([facility]-confined to bed) 1342.284 Kcal/Kg value to use for calculation 38 Approximate Energy Requirements Using 1892 kcal/Kg Calculation Used for Recommendations Kcal/kg Additional Notes Protein: 60-75g (1.2-1.5g/kg) Fluid: 1 ml/kcal Nutrition Intervention Change Diet Order: Continue TF Nutrition Support: Jev[place] 1.2 at 60ml/hr Flush 100ml q4h Kcal 1,728 Protein (gm) 80 Fluid (mL) 1,162 Goal #1 TF tolerance Goal #2 Meet at least 80% of energy and protein needs via TF Goal #3 Wt gain/maintenacne Anticipated Discharge Needs: TF Follow-Up By: 03/07/20 Additional Comments F/U for TF tolerance
[2020-03-07] MEDS: ACETYLCYSTEINE 20% 200 MG/1 ML *FOR INHALATION USE INHALATION SCH ×2 (08:22→21:56)
[2020-03-07] MEDS: SERTRALINE 50 MG TAB PO SCH (09:41)
[2020-03-07] MEDS: QUEtiapine 100 MG TAB FEEDTUBE SCH ×2 (09:41→22:32)
[2020-03-07] MEDS: HALOPERIDOL LACTATE 5 MG/1 ML INJ IM PRN ×2 (09:41→17:13)
[2020-03-07] MEDS: hydrOXYzine PAMOATE 25 MG CAP PO SCH ×2 (09:42→22:31)
[2020-03-07] MEDS: DOCUSATE SODIUM 100 MG/10 ML ORAL LIQD FEEDTUBE SCH ×2 (09:42→22:31)
[2020-03-07] MEDS: levETIRAcetam 500 MG/5 ML ORAL LIQD PO SCH ×2 (09:42→22:31)
[2020-03-07] MEDS: GLYCOPYRROLATE 1 MG TAB PO SCH ×3 (09:42→22:31)
[2020-03-07] MEDS: MIRTAZAPINE 30 MG TAB PO SCH (09:42)
[2020-03-07] MEDS: NICOTINE 21 MG/24 HR PATCH TD SCH (09:42)
[2020-03-07] MEDS: LANSOPRAZOLE 30 MG SOLUTAB FEEDTUBE SCH (09:43)
[2020-03-07] MEDS: METOPROLOL TARTRATE 25 MG TAB PO SCH ×2 (09:46→22:31)
--- NOTE | 2020-03-07 14:00 | Progress Note ---
Assessment and Plan Patient awake. Still agitating. .Patient S/P trach. Patient is presently on T tube, FIO2 28% and.O2 saturation 98%. Wound around trach tube. Recommend cleaning and tracheostomy care. Dressing applied.Recommend frequent respiratory suctioning. Continue bronchodilators.Patient afebrile and has no leukocytosis. - Patient Problems (1) Acute respiratory failure Current Visit: Yes Status: Acute Qualifiers: Respiratory failure complication: hypoxia Qualified Code(s): J96.01 - Acute respiratory failure with hypoxia Plan to address problem: S/P Tracheostomy. On T tube, FIO2 28%. O2 saturation 98%. Recommend albuterol/atrovent aerosol treatments q 6 hours. Continue Mucomist. Respiratory suctioning. Trach care. Mobility protocol. Chest xray and ABGs tomorrow. (2) Alcohol abuse Current Visit: Yes Status: Acute Plan to address problem: Management as per primary care. (3) Cardiac arrest with successful resuscitation Current Visit: Yes Status: Acute Plan to address problem: Patient successfully resucitated. Alert, awake. On T tube, FIO2 28%, O2 saturation 98%. (4) Increased ammonia level Current Visit: Yes Status: Acute Plan to address problem: Management as per primary care. (5) Seizure disorder Current Visit: Yes Status: Acute Plan to address problem: Management as per primary care and neurology. (6) HTN (hypertension) Current Visit: No Status: Acute Plan to address problem: Management as per primary care. Subjective Date of service: 03/07/20 Principal diagnosis: Ac cardiopulmonary arrest; Ac hypoxemic resp failure; Acute encephalopathy Interval history: Patient awake. Still agitating.Patient S/P trach. Patient is presently on T tube, FIO2 28% and.O2 saturation 98%. Wound around trach tube. Recommend cleaning and tracheostomy care. Dressing applied.Recommend frequent respiratory suctioning. Continue bronchodilators.Patient afebrile and has no leukocytosis. Objective Vital Signs - 12hr 03/07/20 03/07/20 03/07/20 04:51 08:00 08:04 Temperature 98.0 F Pulse Rate 93 H Pulse Rate [ 68 Anterior Bilateral Throughout] Pulse Rate [ From Monitor] Respiratory 18 18 Rate Respiratory 18 Rate [Anterior Bilateral Throughout] Blood Pressure 97/72 134/90 O2 Sat by Pulse 65 L Oximetry O2 Sat by Pulse 96 Oximetry [ Assessment] 03/07/20 03/07/20 08:52 09:46 Temperature Pulse Rate 86 Pulse Rate [ Anterior Bilateral Throughout] Pulse Rate [ 86 From Monitor] Respiratory 18 Rate Respiratory Rate [Anterior Bilateral Throughout] Blood Pressure 100/60 O2 Sat by Pulse 98 Oximetry O2 Sat by Pulse Oximetry [ Assessment] Constitutional: no acute distress, alert, agitated Eyes: non-icteric ENT: oropharynx moist, other (s/p trach) Neck: supple, no lymphadenopathy, no JVD Effort: normal Ascultation: Bilateral: diminished breath sounds, rhonchi Percussion: Bilateral: not dull Cardiovascular: regular rate and rhythm (tachycardia), other (S1,S2) Gastrointestinal: normoactive bowel sounds, soft, non-tender, non-distended Integumentary: normal Extremities: no cyanosis, no edema, pulses normal, no ischemia or petechiae Neurologic: normal mental status, non-focal exam, pupils equal and round Psychiatric: mood appropriate, affect normal, anxious, other (Agitating.) CBC and BMP: 03/06/20 03:37 03/06/20 03:37 ABG, PT/INR, D-dimer: ABG ABG pH 7.429 pH Units (7.350-7.450) 01/09/20 08:51 ABG pCO2 39.1 mm Hg 01/09/20 08:51 ABG pO2 94.3 mm Hg (80.0-90.0) H 01/09/20 08:51 ABG O2 Saturation 97.4 % (95.0-99.0) 01/09/20 08:51 PT/INR, D-dimer PT 17.0 Sec. (12.2-14.9) H 11/23/19 03:47 INR 1.36 (0.87-1.13) H 11/23/19 03:47 Abnormal lab findings: Abnormal Labs 11/22/19 11/22/19 11/22/19 23:17 23:18 23:27 WBC 21.2 H RBC 3.59 L Hgb 9.8 L Hct MCH 27 L RDW 18.6 H Plt Count 454 H Lymph % (Auto) Bremer % (Auto) Bremer # Baso # Seg Neutrophils % Seg Neuts % (Manual) 86.0 H Lymphocytes % (Manual) 9.0 L Monocytes % (Manual) Seg Neutrophils # Seg Neutrophils # Man 18.2 H Lymphocytes # (Manual) Monocytes # (Manual) 1.1 H Eosinophils # (Manual) Basophils # (Manual) PT INR APTT ABG pH ABG pO2 ABG HCO3 ABG O2 Saturation ABG Base Excess ABG Hemoglobin Oxyhemoglobin Sodium Potassium Chloride Carbon Dioxide BUN Creatinine Glucose POC Glucose 53 L Lactic Acid Calcium Ionized Calcium Phosphorus Magnesium Total Bilirubin AST ALT Alkaline Phosphatase Ammonia Total Creatine Kinase CK-MB (CK-2) CK-MB (CK-2) Rel Index Total Protein Albumin Urine WBC (Auto) 40.0 H Vancomycin Trough Salicylates Acetaminophen Plasma/Serum Alcohol Crossmatch 11/22/19 11/22/19 11/22/19 23:27 23:27 23:27 WBC RBC Hgb Hct MCH RDW Plt Count Lymph % (Auto) Bremer % (Auto) Bremer # Baso # Seg Neutrophils % Seg Neuts % (Manual) Lymphocytes % (Manual) Monocytes % (Manual) Seg Neutrophils # Seg Neutrophils # Man Lymphocytes # (Manual) Monocytes # (Manual) Eosinophils # (Manual) Basophils # (Manual) PT INR APTT ABG pH ABG pO2 ABG HCO3 ABG O2 Saturation ABG Base Excess ABG Hemoglobin Oxyhemoglobin Sodium Potassium 2.4 L* Chloride 85.1 L Carbon Dioxide 19 L BUN Creatinine 0.5 L Glucose 261 H POC Glucose Lactic Acid Calcium Ionized Calcium Phosphorus Magnesium Total Bilirubin AST 609 H ALT 152 H Alkaline Phosphatase 160 H Ammonia 117.0 H Total Creatine Kinase 139 H CK-MB (CK-2) 8.3 H CK-MB (CK-2) Rel Index 5.9 H Total Protein Albumin 3.6 L Urine WBC (Auto) Vancomycin Trough Salicylates < 0.3 L Acetaminophen Plasma/Serum Alcohol Crossmatch 11/22/19 11/22/19 11/23/19 23:27 23:27 01:10 WBC RBC Hgb Hct MCH RDW Plt Count Lymph % (Auto) Bremer % (Auto) Bremer # Baso # Seg Neutrophils % Seg Neuts % (Manual) Lymphocytes % (Manual) Monocytes % (Manual) Seg Neutrophils # Seg Neutrophils # Man Lymphocytes # (Manual) Monocytes # (Manual) Eosinophils # (Manual) Basophils # (Manual) PT INR APTT ABG pH 7.273 L ABG pO2 209.7 H ABG HCO3 ABG O2 Saturation 99.2 H ABG Base Excess -3.9 L ABG Hemoglobin 10.6 L Oxyhemoglobin 93.9 L Sodium Potassium Chloride Carbon Dioxide BUN Creatinine Glucose POC Glucose Lactic Acid Calcium Ionized Calcium Phosphorus Magnesium Total Bilirubin AST ALT Alkaline Phosphatase Ammonia Total Creatine Kinase CK-MB (CK-2) CK-MB (CK-2) Rel Index Total Protein Albumin Urine WBC (Auto) Vancomycin Trough Salicylates Acetaminophen < 5.0 L Plasma/Serum Alcohol 0.08 H Crossmatch 11/23/19 11/23/19 11/23/19 01:19 01:19 03:47 WBC RBC Hgb Hct MCH RDW Plt Count Lymph % (Auto) Bremer % (Auto) Bremer # Baso # Seg Neutrophils % Seg Neuts % (Manual) Lymphocytes % (Manual) Monocytes % (Manual) Seg Neutrophils # Seg Neutrophils # Man Lymphocytes # (Manual) Monocytes # (Manual) Eosinophils # (Manual) Basophils # (Manual) PT 16.3 H INR 1.29 H APTT ABG pH ABG pO2 ABG HCO3 ABG O2 Saturation ABG Base Excess ABG Hemoglobin Oxyhemoglobin Sodium Potassium Chloride Carbon Dioxide BUN Creatinine Glucose POC Glucose Lactic Acid 2.10 H* 5.00 H* Calcium Ionized Calcium Phosphorus Magnesium Total Bilirubin AST ALT Alkaline Phosphatase Ammonia Total Creatine Kinase CK-MB (CK-2) CK-MB (CK-2) Rel Index Total Protein Albumin Urine WBC (Auto) Vancomycin Trough Salicylates Acetaminophen Plasma/Serum Alcohol Crossmatch 11/23/19 11/23/19 11/23/19 03:47 03:47 04:53 WBC RBC Hgb 9.4 L Hct MCH RDW Plt Count Lymph % (Auto) Bremer % (Auto) Bremer # Baso # Seg Neutrophils % Seg Neuts % (Manual) Lymphocytes % (Manual) Monocytes % (Manual) Seg Neutrophils # Seg Neutrophils # Man Lymphocytes # (Manual) Monocytes # (Manual) Eosinophils # (Manual) Basophils # (Manual) PT 17.0 H INR 1.36 H APTT 128.2 H* ABG pH ABG pO2 ABG HCO3 ABG O2 Saturation ABG Base Excess ABG Hemoglobin Oxyhemoglobin Sodium Potassium Chloride Carbon Dioxide 18 L BUN Creatinine 0.5 L Glucose 105 H POC Glucose Lactic Acid Calcium 8.3 L Ionized Calcium Phosphorus 2.40 L Magnesium Total Bilirubin 1.30 H AST 761 H ALT 158 H Alkaline Phosphatase 143 H Ammonia Total Creatine Kinase CK-MB (CK-2) CK-MB (CK-2) Rel Index Total Protein Albumin 2.8 L Urine WBC (Auto) Vancomycin Trough Salicylates Acetaminophen Plasma/Serum Alcohol Crossmatch 11/23/19 11/23/19 11/23/19 05:12 06:32 06:32 WBC 16.8 H RBC 3.31 L Hgb 8.9 L Hct 28.7 L MCH 27 L RDW 18.6 H Plt Count Lymph % (Auto) Bremer % (Auto) Bremer # Baso # Seg Neutrophils % Seg Neuts % (Manual) 94.0 H Lymphocytes % (Manual) 1.0 L Monocytes % (Manual) Seg Neutrophils # Seg Neutrophils # Man 15.8 H Lymphocytes # (Manual) 0.2 L Monocytes # (Manual) Eosinophils # (Manual) Basophils # (Manual) PT INR APTT ABG pH ABG pO2 ABG HCO3 ABG O2 Saturation ABG Base Excess -3.2 L ABG Hemoglobin 9.0 L Oxyhemoglobin 93.6 L Sodium Potassium Chloride Carbon Dioxide BUN Creatinine Glucose POC Glucose Lactic Acid Calcium Ionized Calcium 4.5 L Phosphorus Magnesium Total Bilirubin AST ALT Alkaline Phosphatase Ammonia Total Creatine Kinase CK-MB (CK-2) CK-MB (CK-2) Rel Index Total Protein Albumin Urine WBC (Auto) Vancomycin Trough Salicylates Acetaminophen Plasma/Serum Alcohol Crossmatch 11/23/19 11/24/19 11/24/19 06:32 04:35 04:35 WBC RBC Hgb Hct MCH RDW Plt Count Lymph % (Auto) Bremer % (Auto) Bremer # Baso # Seg Neutrophils % Seg Neuts % (Manual) Lymphocytes % (Manual) Monocytes % (Manual) Seg Neutrophils # Seg Neutrophils # Man Lymphocytes # (Manual) Monocytes # (Manual) Eosinophils # (Manual) Basophils # (Manual) PT INR APTT ABG pH ABG pO2 ABG HCO3 ABG O2 Saturation ABG Base Excess ABG Hemoglobin Oxyhemoglobin Sodium Potassium Chloride Carbon Dioxide BUN Creatinine Glucose POC Glucose Lactic Acid 3.30 H* Calcium Ionized Calcium Phosphorus Magnesium 1.40 L Total Bilirubin AST ALT Alkaline Phosphatase Ammonia 98.0 H Total Creatine Kinase CK-MB (CK-2) CK-MB (CK-2) Rel Index Total Protein Albumin Urine WBC (Auto) Vancomycin Trough Salicylates Acetaminophen Plasma/Serum Alcohol Crossmatch 11/24/19 11/25/19 11/25/19 05:22 04:34 05:05 WBC 17.3 H RBC 2.88 L Hgb 7.8 L Hct 24.6 L MCH 27 L RDW 18.5 H Plt Count Lymph % (Auto) 7.7 L Bremer % (Auto) 9.7 H Bremer # 1.7 H Baso # Seg Neutrophils % 82.2 H Seg Neuts % (Manual) Lymphocytes % (Manual) Monocytes % (Manual) Seg Neutrophils # 14.2 H Seg Neutrophils # Man Lymphocytes # (Manual) Monocytes # (Manual) Eosinophils # (Manual) Basophils # (Manual) PT INR APTT ABG pH 7.475 H ABG pO2 ABG HCO3 29.4 H 32.3 H ABG O2 Saturation ABG Base Excess 5.4 H 6.9 H ABG Hemoglobin 9.0 L 10.6 L Oxyhemoglobin 94.3 L Sodium Potassium Chloride Carbon Dioxide BUN Creatinine Glucose POC Glucose Lactic Acid Calcium Ionized Calcium Phosphorus Magnesium Total Bilirubin AST ALT Alkaline Phosphatase Ammonia Total Creatine Kinase CK-MB (CK-2) CK-MB (CK-2) Rel Index Total Protein Albumin Urine WBC (Auto) Vancomycin Trough Salicylates Acetaminophen Plasma/Serum Alcohol Crossmatch 11/25/19 11/25/19 11/26/19 05:05 22:46 03:31 WBC RBC Hgb Hct MCH RDW Plt Count Lymph % (Auto) Bremer % (Auto) Bremer # Baso # Seg Neutrophils % Seg Neuts % (Manual) Lymphocytes % (Manual) Monocytes % (Manual) Seg Neutrophils # Seg Neutrophils # Man Lymphocytes # (Manual) Monocytes # (Manual) Eosinophils # (Manual) Basophils # (Manual) PT INR APTT ABG pH 7.459 H ABG pO2 ABG HCO3 34.2 H ABG O2 Saturation ABG Base Excess 9.4 H ABG Hemoglobin 7.6 L Oxyhemoglobin 94.8 L Sodium 152 H D 147 H Potassium 2.3 L* D 2.8 L* D Chloride 107.8 H Carbon Dioxide 31 H D 33 H BUN Creatinine 0.6 L 0.6 L Glucose 148 H 177 H POC Glucose Lactic Acid Calcium Ionized Calcium Phosphorus Magnesium Total Bilirubin AST 105 H ALT 71 H Alkaline Phosphatase 155 H Ammonia Total Creatine Kinase CK-MB (CK-2) CK-MB (CK-2) Rel Index Total Protein 5.2 L D Albumin 2.9 L Urine WBC (Auto) Vancomycin Trough Salicylates Acetaminophen Plasma/Serum Alcohol Crossmatch 11/26/19 11/26/19 11/27/19 08:24 08:24 04:20 WBC 12.0 H RBC 3.00 L Hgb 8.0 L 9.3 L Hct 25.9 L 29.7 L MCH 27 L RDW 18.5 H Plt Count Lymph % (Auto) Bremer % (Auto) Bremer # Baso # Seg Neutrophils % Seg Neuts % (Manual) 89.0 H Lymphocytes % (Manual) 4.0 L Monocytes % (Manual) Seg Neutrophils # Seg Neutrophils # Man 10.7 H Lymphocytes # (Manual) 0.5 L Monocytes # (Manual) Eosinophils # (Manual) Basophils # (Manual) PT INR APTT ABG pH ABG pO2 ABG HCO3 ABG O2 Saturation ABG Base Excess ABG Hemoglobin Oxyhemoglobin Sodium 146 H Potassium 3.4 L D Chloride Carbon Dioxide BUN Creatinine 0.5 L Glucose 165 H POC Glucose Lactic Acid Calcium Ionized Calcium Phosphorus Magnesium Total Bilirubin AST 57 H ALT Alkaline Phosphatase 166 H Ammonia Total Creatine Kinase CK-MB (CK-2) CK-MB (CK-2) Rel Index Total Protein Albumin 2.9 L Urine WBC (Auto) Vancomycin Trough Salicylates Acetaminophen Plasma/Serum Alcohol Crossmatch 11/27/19 11/27/19 11/27/19 04:28 04:28 04:42 WBC RBC Hgb Hct MCH RDW Plt Count Lymph % (Auto) Bremer % (Auto) Bremer # Baso # Seg Neutrophils % Seg Neuts % (Manual) Lymphocytes % (Manual) Monocytes % (Manual) Seg Neutrophils # Seg Neutrophils # Man Lymphocytes # (Manual) Monocytes # (Manual) Eosinophils # (Manual) Basophils # (Manual) PT INR APTT ABG pH 7.470 H ABG pO2 74.0 L ABG HCO3 33.8 H ABG O2 Saturation ABG Base Excess 9.1 H ABG Hemoglobin 8.7 L Oxyhemoglobin 94.7 L Sodium 146 H Potassium 2.9 L* Chloride Carbon Dioxide BUN 25 H Creatinine Glucose 213 H POC Glucose Lactic Acid Calcium Ionized Calcium Phosphorus 1.00 L Magnesium Total Bilirubin AST ALT Alkaline Phosphatase Ammonia Total Creatine Kinase CK-MB (CK-2) CK-MB (CK-2) Rel Index Total Protein Albumin Urine WBC (Auto) Vancomycin Trough Salicylates Acetaminophen Plasma/Serum Alcohol Crossmatch 11/27/19 11/27/19 11/27/19 05:37 12:20 15:46 WBC RBC Hgb Hct MCH RDW Plt Count Lymph % (Auto) Bremer % (Auto) Bremer # Baso # Seg Neutrophils % Seg Neuts % (Manual) Lymphocytes % (Manual) Monocytes % (Manual) Seg Neutrophils # Seg Neutrophils # Man Lymphocytes # (Manual) Monocytes # (Manual) Eosinophils # (Manual) Basophils # (Manual) PT INR APTT ABG pH ABG pO2 ABG HCO3 ABG O2 Saturation ABG Base Excess ABG Hemoglobin Oxyhemoglobin Sodium 146 H Potassium 3.5 L D Chloride Carbon Dioxide BUN 24 H Creatinine 0.6 L Glucose 187 H POC Glucose 117 H 220 H Lactic Acid Calcium Ionized Calcium Phosphorus Magnesium Total Bilirubin AST ALT Alkaline Phosphatase Ammonia Total Creatine Kinase CK-MB (CK-2) CK-MB (CK-2) Rel Index Total Protein Albumin Urine WBC (Auto) Vancomycin Trough Salicylates Acetaminophen Plasma/Serum Alcohol Crossmatch 11/27/19 11/28/19 11/28/19 17:28 05:00 05:02 WBC RBC Hgb Hct MCH RDW Plt Count Lymph % (Auto) Bremer % (Auto) Bremer # Baso # Seg Neutrophils % Seg Neuts % (Manual) Lymphocytes % (Manual) Monocytes % (Manual) Seg Neutrophils # Seg Neutrophils # Man Lymphocytes # (Manual) Monocytes # (Manual) Eosinophils # (Manual) Basophils # (Manual) PT INR APTT ABG pH ABG pO2 72.4 L ABG HCO3 33.6 H ABG O2 Saturation 94.1 L ABG Base Excess 7.3 H ABG Hemoglobin Oxyhemoglobin 91.8 L Sodium 146 H Potassium 3.3 L Chloride Carbon Dioxide BUN 25 H Creatinine 0.6 L Glucose 176 H POC Glucose 198 H Lactic Acid Calcium Ionized Calcium Phosphorus Magnesium Total Bilirubin AST ALT Alkaline Phosphatase Ammonia Total Creatine Kinase CK-MB (CK-2) CK-MB (CK-2) Rel Index Total Protein Albumin Urine WBC (Auto) Vancomycin Trough Salicylates Acetaminophen Plasma/Serum Alcohol Crossmatch 11/28/19 11/28/19 11/29/19 05:02 18:55 10:43 WBC 15.2 H 19.0 H RBC 3.06 L 3.01 L Hgb 8.3 L 8.3 L Hct 27.0 L 26.4 L MCH 27 L RDW 19.0 H 19.7 H Plt Count 479 H 611 H Lymph % (Auto) Bremer % (Auto) Bremer # Baso # Seg Neutrophils % Seg Neuts % (Manual) 92.0 H Lymphocytes % (Manual) 2.0 L Monocytes % (Manual) Seg Neutrophils # Seg Neutrophils # Man 14.0 H Lymphocytes # (Manual) 0.3 L Monocytes # (Manual) Eosinophils # (Manual) Basophils # (Manual) PT INR APTT ABG pH ABG pO2 ABG HCO3 ABG O2 Saturation ABG Base Excess ABG Hemoglobin Oxyhemoglobin Sodium Potassium Chloride Carbon Dioxide BUN Creatinine Glucose POC Glucose 138 H Lactic Acid Calcium Ionized Calcium Phosphorus Magnesium Total Bilirubin AST ALT Alkaline Phosphatase Ammonia Total Creatine Kinase CK-MB (CK-2) CK-MB (CK-2) Rel Index Total Protein Albumin Urine WBC (Auto) Vancomycin Trough Salicylates Acetaminophen Plasma/Serum Alcohol Crossmatch 11/29/19 11/29/19 11/29/19 10:43 12:27 19:25 WBC RBC Hgb Hct MCH RDW Plt Count Lymph % (Auto) Bremer % (Auto) Bremer # Baso # Seg Neutrophils % Seg Neuts % (Manual) Lymphocytes % (Manual) Monocytes % (Manual) Seg Neutrophils # Seg Neutrophils # Man Lymphocytes # (Manual) Monocytes # (Manual) Eosinophils # (Manual) Basophils # (Manual) PT INR APTT ABG pH ABG pO2 ABG HCO3 ABG O2 Saturation ABG Base Excess ABG Hemoglobin Oxyhemoglobin Sodium Potassium 2.8 L* Chloride Carbon Dioxide BUN 20 H Creatinine 0.5 L Glucose 121 H POC Glucose 128 H 120 H Lactic Acid Calcium Ionized Calcium Phosphorus Magnesium Total Bilirubin AST ALT Alkaline Phosphatase Ammonia Total Creatine Kinase CK-MB (CK-2) CK-MB (CK-2) Rel Index Total Protein Albumin Urine WBC (Auto) Vancomycin Trough Salicylates Acetaminophen Plasma/Serum Alcohol Crossmatch 11/29/19 11/30/19 11/30/19 23:46 04:10 05:02 WBC RBC Hgb Hct MCH RDW Plt Count Lymph % (Auto) Bremer % (Auto) Bremer # Baso # Seg Neutrophils % Seg Neuts % (Manual) Lymphocytes % (Manual) Monocytes % (Manual) Seg Neutrophils # Seg Neutrophils # Man Lymphocytes # (Manual) Monocytes # (Manual) Eosinophils # (Manual) Basophils # (Manual) PT INR APTT ABG pH ABG pO2 76.3 L ABG HCO3 32.5 H ABG O2 Saturation ABG Base Excess 6.9 H ABG Hemoglobin 8.0 L Oxyhemoglobin 92.6 L Sodium Potassium Chloride Carbon Dioxide BUN Creatinine Glucose POC Glucose 116 H 128 H Lactic Acid Calcium Ionized Calcium Phosphorus Magnesium Total Bilirubin AST ALT Alkaline Phosphatase Ammonia Total Creatine Kinase CK-MB (CK-2) CK-MB (CK-2) Rel Index Total Protein Albumin Urine WBC (Auto) Vancomycin Trough Salicylates Acetaminophen Plasma/Serum Alcohol Crossmatch 11/30/19 11/30/19 11/30/19 05:25 05:25 12:59 WBC 18.4 H RBC 3.10 L Hgb 8.5 L Hct 27.5 L MCH 27 L RDW 20.9 H Plt Count 691 H Lymph % (Auto) 7.1 L Bremer % (Auto) 7.7 H Bremer # 1.4 H Baso # Seg Neutrophils % 83.4 H Seg Neuts % (Manual) Lymphocytes % (Manual) Monocytes % (Manual) Seg Neutrophils # 15.4 H Seg Neutrophils # Man Lymphocytes # (Manual) Monocytes # (Manual) Eosinophils # (Manual) Basophils # (Manual) PT INR APTT ABG pH ABG pO2 ABG HCO3 ABG O2 Saturation ABG Base Excess ABG Hemoglobin Oxyhemoglobin Sodium 146 H Potassium Chloride 107.2 H Carbon Dioxide BUN Creatinine 0.5 L Glucose 132 H POC Glucose 124 H Lactic Acid Calcium Ionized Calcium Phosphorus Magnesium Total Bilirubin AST 246 H ALT 274 H Alkaline Phosphatase 203 H Ammonia Total Creatine Kinase CK-MB (CK-2) CK-MB (CK-2) Rel Index Total Protein 5.4 L Albumin 2.9 L Urine WBC (Auto) Vancomycin Trough Salicylates Acetaminophen Plasma/Serum Alcohol Crossmatch 11/30/19 12/01/19 12/01/19 17:53 00:05 05:10 WBC RBC Hgb Hct MCH RDW Plt Count Lymph % (Auto) Bremer % (Auto) Bremer # Baso # Seg Neutrophils % Seg Neuts % (Manual) Lymphocytes % (Manual) Monocytes % (Manual) Seg Neutrophils # Seg Neutrophils # Man Lymphocytes # (Manual) Monocytes # (Manual) Eosinophils # (Manual) Basophils # (Manual) PT INR APTT ABG pH ABG pO2 ABG HCO3 ABG O2 Saturation ABG Base Excess ABG Hemoglobin Oxyhemoglobin Sodium Potassium Chloride Carbon Dioxide BUN Creatinine Glucose POC Glucose 113 H 143 H 145 H Lactic Acid Calcium Ionized Calcium Phosphorus Magnesium Total Bilirubin AST ALT Alkaline Phosphatase Ammonia Total Creatine Kinase CK-MB (CK-2) CK-MB (CK-2) Rel Index Total Protein Albumin Urine WBC (Auto) Vancomycin Trough Salicylates Acetaminophen Plasma/Serum Alcohol Crossmatch 12/01/19 12/01/19 12/01/19 05:33 08:23 08:23 WBC 22.7 H RBC 2.88 L Hgb 7.9 L Hct 25.2 L MCH 27 L RDW 21.0 H Plt Count 732 H Lymph % (Auto) Bremer % (Auto) Bremer # Baso # Seg Neutrophils % Seg Neuts % (Manual) 91.0 H Lymphocytes % (Manual) 3.0 L Monocytes % (Manual) Seg Neutrophils # Seg Neutrophils # Man 20.7 H Lymphocytes # (Manual) 0.7 L Monocytes # (Manual) 1.1 H Eosinophils # (Manual) Basophils # (Manual) PT INR APTT ABG pH ABG pO2 68.6 L ABG HCO3 34.1 H ABG O2 Saturation ABG Base Excess 9.0 H ABG Hemoglobin 6.5 L Oxyhemoglobin 94.7 L Sodium Potassium Chloride Carbon Dioxide BUN Creatinine 0.5 L Glucose 125 H POC Glucose Lactic Acid Calcium Ionized Calcium Phosphorus Magnesium Total Bilirubin AST ALT Alkaline Phosphatase Ammonia Total Creatine Kinase CK-MB (CK-2) CK-MB (CK-2) Rel Index Total Protein Albumin Urine WBC (Auto) Vancomycin Trough Salicylates Acetaminophen Plasma/Serum Alcohol Crossmatch 12/01/19 12/01/19 12/01/19 13:21 17:54 20:59 WBC RBC Hgb Hct MCH RDW Plt Count Lymph % (Auto) Bremer % (Auto) Bremer # Baso # Seg Neutrophils % Seg Neuts % (Manual) Lymphocytes % (Manual) Monocytes % (Manual) Seg Neutrophils # Seg Neutrophils # Man Lymphocytes # (Manual) Monocytes # (Manual) Eosinophils # (Manual) Basophils # (Manual) PT INR APTT ABG pH ABG pO2 78.3 L ABG HCO3 33.8 H ABG O2 Saturation 94.9 L ABG Base Excess 7.9 H ABG Hemoglobin 11.5 L Oxyhemoglobin 92.3 L Sodium Potassium Chloride Carbon Dioxide BUN Creatinine Glucose POC Glucose 111 H 115 H Lactic Acid Calcium Ionized Calcium Phosphorus Magnesium Total Bilirubin AST ALT Alkaline Phosphatase Ammonia Total Creatine Kinase CK-MB (CK-2) CK-MB (CK-2) Rel Index Total Protein Albumin Urine WBC (Auto) Vancomycin Trough Salicylates Acetaminophen Plasma/Serum Alcohol Crossmatch 12/02/19 12/03/19 12/04/19 12:55 20:00 04:26 WBC 15.2 H RBC 2.69 L Hgb 7.4 L Hct 23.6 L MCH 27 L RDW 19.9 H Plt Count 838 H Lymph % (Auto) Bremer % (Auto) Bremer # Baso # Seg Neutrophils % Seg Neuts % (Manual) Lymphocytes % (Manual) Monocytes % (Manual) Seg Neutrophils # Seg Neutrophils # Man Lymphocytes # (Manual) Monocytes # (Manual) Eosinophils # (Manual) Basophils # (Manual) PT INR APTT ABG pH ABG pO2 68.3 L ABG HCO3 33.5 H ABG O2 Saturation 93.5 L ABG Base Excess 8.4 H ABG Hemoglobin 7.3 L Oxyhemoglobin 90.9 L Sodium Potassium Chloride Carbon Dioxide BUN Creatinine Glucose POC Glucose 107 H Lactic Acid Calcium Ionized Calcium Phosphorus Magnesium Total Bilirubin AST ALT Alkaline Phosphatase Ammonia Total Creatine Kinase CK-MB (CK-2) CK-MB (CK-2) Rel Index Total Protein Albumin Urine WBC (Auto) Vancomycin Trough Salicylates Acetaminophen Plasma/Serum Alcohol Crossmatch 12/04/19 12/04/19 12/04/19 04:26 07:45 12:02 WBC 15.9 H RBC 2.88 L Hgb 7.9 L Hct 25.1 L MCH RDW 20.4 H Plt Count 839 H Lymph % (Auto) 11.3 L Bremer % (Auto) 15.2 H Bremer # 2.4 H Baso # Seg Neutrophils % 72.4 H Seg Neuts % (Manual) Lymphocytes % (Manual) Monocytes % (Manual) Seg Neutrophils # 11.5 H Seg Neutrophils # Man Lymphocytes # (Manual) Monocytes # (Manual) Eosinophils # (Manual) Basophils # (Manual) PT INR APTT ABG pH ABG pO2 ABG HCO3 ABG O2 Saturation ABG Base Excess ABG Hemoglobin Oxyhemoglobin Sodium Potassium Chloride 96.5 L Carbon Dioxide BUN 21 H Creatinine 0.6 L Glucose 107 H POC Glucose 138 H Lactic Acid Calcium Ionized Calcium Phosphorus Magnesium Total Bilirubin AST ALT Alkaline Phosphatase Ammonia Total Creatine Kinase CK-MB (CK-2) CK-MB (CK-2) Rel Index Total Protein Albumin Urine WBC (Auto) Vancomycin Trough Salicylates Acetaminophen Plasma/Serum Alcohol Crossmatch 12/04/19 12/05/19 12/05/19 18:16 11:55 18:36 WBC RBC Hgb Hct MCH RDW Plt Count Lymph % (Auto) Bremer % (Auto) Bremer # Baso # Seg Neutrophils % Seg Neuts % (Manual) Lymphocytes % (Manual) Monocytes % (Manual) Seg Neutrophils # Seg Neutrophils # Man Lymphocytes # (Manual) Monocytes # (Manual) Eosinophils # (Manual) Basophils # (Manual) PT INR APTT ABG pH ABG pO2 ABG HCO3 ABG O2 Saturation ABG Base Excess ABG Hemoglobin Oxyhemoglobin Sodium Potassium Chloride Carbon Dioxide BUN Creatinine Glucose POC Glucose 135 H 125 H 135 H Lactic Acid Calcium Ionized Calcium Phosphorus Magnesium Total Bilirubin AST ALT Alkaline Phosphatase Ammonia Total Creatine Kinase CK-MB (CK-2) CK-MB (CK-2) Rel Index Total Protein Albumin Urine WBC (Auto) Vancomycin Trough Salicylates Acetaminophen Plasma/Serum Alcohol Crossmatch 12/05/19 12/06/19 12/06/19 23:30 04:14 05:43 WBC RBC Hgb Hct MCH RDW Plt Count Lymph % (Auto) Bremer % (Auto) Bremer # Baso # Seg Neutrophils % Seg Neuts % (Manual) Lymphocytes % (Manual) Monocytes % (Manual) Seg Neutrophils # Seg Neutrophils # Man Lymphocytes # (Manual) Monocytes # (Manual) Eosinophils # (Manual) Basophils # (Manual) PT INR APTT ABG pH ABG pO2 ABG HCO3 ABG O2 Saturation ABG Base Excess ABG Hemoglobin Oxyhemoglobin Sodium Potassium 5.6 H Chloride 95.0 L Carbon Dioxide BUN 48 H Creatinine 1.3 H D Glucose POC Glucose 126 H 121 H Lactic Acid Calcium Ionized Calcium Phosphorus Magnesium Total Bilirubin AST 89 H ALT 98 H Alkaline Phosphatase 476 H Ammonia Total Creatine Kinase CK-MB (CK-2) CK-MB (CK-2) Rel Index Total Protein Albumin 2.8 L Urine WBC (Auto) Vancomycin Trough Salicylates Acetaminophen Plasma/Serum Alcohol Crossmatch 12/06/19 12/06/19 12/07/19 10:39 14:34 00:19 WBC 17.3 H RBC 2.60 L Hgb 7.1 L Hct 22.7 L MCH 27 L RDW 20.1 H Plt Count 832 H Lymph % (Auto) [place] % (Auto) [place] # Baso # Seg Neutrophils % Seg Neuts % (Manual) Lymphocytes % (Manual) Monocytes % (Manual) Seg Neutrophils # Seg Neutrophils # Man Lymphocytes # (Manual) Monocytes # (Manual) Eosinophils # (Manual) Basophils # (Manual) PT INR APTT ABG pH ABG pO2 ABG HCO3 ABG O2 Saturation ABG Base Excess ABG Hemoglobin Oxyhemoglobin Sodium Potassium Chloride Carbon Dioxide BUN Creatinine Glucose POC Glucose 128 H 136 H Lactic Acid Calcium Ionized Calcium Phosphorus Magnesium Total Bilirubin AST ALT Alkaline Phosphatase Ammonia Total Creatine Kinase CK-MB (CK-2) CK-MB (CK-2) Rel Index Total Protein Albumin Urine WBC (Auto) Vancomycin Trough Salicylates Acetaminophen Plasma/Serum Alcohol Crossmatch 12/07/19 12/07/19 12/07/19 03:44 03:44 05:53 WBC 16.2 H RBC 2.56 L Hgb 7.1 L Hct 22.3 L MCH RDW 19.4 H Plt Count 782 H Lymph % (Auto) [place] % (Auto) [place] # Baso # Seg Neutrophils % Seg Neuts % (Manual) Lymphocytes % (Manual) Monocytes % (Manual) Seg Neutrophils # Seg Neutrophils # Man Lymphocytes # (Manual) Monocytes # (Manual) Eosinophils # (Manual) Basophils # (Manual) PT INR APTT ABG pH ABG pO2 ABG HCO3 ABG O2 Saturation ABG Base Excess ABG Hemoglobin Oxyhemoglobin Sodium Potassium Chloride 95.6 L Carbon Dioxide BUN 56 H Creatinine 1.4 H Glucose 120 H POC Glucose 128 H Lactic Acid Calcium 10.3 H Ionized Calcium Phosphorus Magnesium Total Bilirubin AST ALT Alkaline Phosphatase Ammonia Total Creatine Kinase CK-MB (CK-2) CK-MB (CK-2) Rel Index Total Protein Albumin Urine WBC (Auto) Vancomycin Trough Salicylates Acetaminophen Plasma/Serum Alcohol Crossmatch 12/07/19 12/07/19 12/08/19 12:54 23:47 00:20 WBC RBC Hgb Hct MCH RDW Plt Count Lymph % (Auto) [place] % (Auto) [place] # Baso # Seg Neutrophils % Seg Neuts % (Manual) Lymphocytes % (Manual) Monocytes % (Manual) Seg Neutrophils # Seg Neutrophils # Man Lymphocytes # (Manual) Monocytes # (Manual) Eosinophils # (Manual) Basophils # (Manual) PT INR APTT ABG pH ABG pO2 ABG HCO3 ABG O2 Saturation ABG Base Excess ABG Hemoglobin Oxyhemoglobin Sodium Potassium Chloride Carbon Dioxide BUN Creatinine Glucose POC Glucose 128 H 130 H 124 H Lactic Acid Calcium Ionized Calcium Phosphorus Magnesium Total Bilirubin AST ALT Alkaline Phosphatase Ammonia Total Creatine Kinase CK-MB (CK-2) CK-MB (CK-2) Rel Index Total Protein Albumin Urine WBC (Auto) Vancomycin Trough Salicylates Acetaminophen Plasma/Serum Alcohol Crossmatch 12/08/19 12/08/19 12/08/19 06:38 12:04 18:26 WBC RBC Hgb Hct MCH RDW Plt Count Lymph % (Auto) [place] % (Auto) [place] # Baso # Seg Neutrophils % Seg Neuts % (Manual) Lymphocytes % (Manual) Monocytes % (Manual) Seg Neutrophils # Seg Neutrophils # Man Lymphocytes # (Manual) Monocytes # (Manual) Eosinophils # (Manual) Basophils # (Manual) PT INR APTT ABG pH ABG pO2 ABG HCO3 ABG O2 Saturation ABG Base Excess ABG Hemoglobin Oxyhemoglobin Sodium Potassium Chloride Carbon Dioxide BUN Creatinine Glucose POC Glucose 137 H 129 H 150 H Lactic Acid Calcium Ionized Calcium Phosphorus Magnesium Total Bilirubin AST ALT Alkaline Phosphatase Ammonia Total Creatine Kinase CK-MB (CK-2) CK-MB (CK-2) Rel Index Total Protein Albumin Urine WBC (Auto) Vancomycin Trough Salicylates Acetaminophen Plasma/Serum Alcohol Crossmatch 12/09/19 12/09/19 12/09/19 00:56 05:34 06:13 WBC RBC Hgb Hct MCH RDW Plt Count Lymph % (Auto) [place] % (Auto) [place] # Baso # Seg Neutrophils % Seg Neuts % (Manual) Lymphocytes % (Manual) Monocytes % (Manual) Seg Neutrophils # Seg Neutrophils # Man Lymphocytes # (Manual) Monocytes # (Manual) Eosinophils # (Manual) Basophils # (Manual) PT INR APTT ABG pH ABG pO2 ABG HCO3 ABG O2 Saturation ABG Base Excess ABG Hemoglobin Oxyhemoglobin Sodium 146 H Potassium Chloride Carbon Dioxide BUN 66 H Creatinine 1.9 H Glucose 116 H POC Glucose 130 H 130 H Lactic Acid Calcium Ionized Calcium Phosphorus Magnesium Total Bilirubin AST ALT Alkaline Phosphatase Ammonia Total Creatine Kinase CK-MB (CK-2) CK-MB (CK-2) Rel Index Total Protein Albumin Urine WBC (Auto) Vancomycin Trough Salicylates Acetaminophen Plasma/Serum Alcohol Crossmatch 12/09/19 12/09/19 12/10/19 11:52 17:50 00:14 WBC RBC Hgb Hct MCH RDW Plt Count Lymph % (Auto) [place] % (Auto) [place] # Baso # Seg Neutrophils % Seg Neuts % (Manual) Lymphocytes % (Manual) Monocytes % (Manual) Seg Neutrophils # Seg Neutrophils # Man Lymphocytes # (Manual) Monocytes # (Manual) Eosinophils # (Manual) Basophils # (Manual) PT INR APTT ABG pH ABG pO2 ABG HCO3 ABG O2 Saturation ABG Base Excess ABG Hemoglobin Oxyhemoglobin Sodium Potassium Chloride Carbon Dioxide BUN Creatinine Glucose POC Glucose 135 H 120 H 116 H Lactic Acid Calcium Ionized Calcium Phosphorus Magnesium Total Bilirubin AST ALT Alkaline Phosphatase Ammonia Total Creatine Kinase CK-MB (CK-2) CK-MB (CK-2) Rel Index Total Protein Albumin Urine WBC (Auto) Vancomycin Trough Salicylates Acetaminophen Plasma/Serum Alcohol Crossmatch 12/10/19 12/10/19 12/10/19 05:38 11:38 17:34 WBC RBC Hgb Hct MCH RDW Plt Count Lymph % (Auto) [place] % (Auto) [place] # Baso # Seg Neutrophils % Seg Neuts % (Manual) Lymphocytes % (Manual) Monocytes % (Manual) Seg Neutrophils # Seg Neutrophils # Man Lymphocytes # (Manual) Monocytes # (Manual) Eosinophils # (Manual) Basophils # (Manual) PT INR APTT ABG pH ABG pO2 ABG HCO3 ABG O2 Saturation ABG Base Excess ABG Hemoglobin Oxyhemoglobin Sodium Potassium Chloride Carbon Dioxide BUN Creatinine Glucose POC Glucose 115 H 112 H 130 H Lactic Acid Calcium Ionized Calcium Phosphorus Magnesium Total Bilirubin AST ALT Alkaline Phosphatase Ammonia Total Creatine Kinase CK-MB (CK-2) CK-MB (CK-2) Rel Index Total Protein Albumin Urine WBC (Auto) Vancomycin Trough Salicylates Acetaminophen Plasma/Serum Alcohol Crossmatch 12/11/19 12/11/19 12/11/19 00:20 05:31 12:22 WBC RBC Hgb Hct MCH RDW Plt Count Lymph % (Auto) [place] % (Auto) [place] # Baso # Seg Neutrophils % Seg Neuts % (Manual) Lymphocytes % (Manual) Monocytes % (Manual) Seg Neutrophils # Seg Neutrophils # Man Lymphocytes # (Manual) Monocytes # (Manual) Eosinophils # (Manual) Basophils # (Manual) PT INR APTT ABG pH ABG pO2 ABG HCO3 ABG O2 Saturation ABG Base Excess ABG Hemoglobin Oxyhemoglobin Sodium Potassium Chloride Carbon Dioxide BUN Creatinine Glucose POC Glucose 124 H 132 H 128 H Lactic Acid Calcium Ionized Calcium Phosphorus Magnesium Total Bilirubin AST ALT Alkaline Phosphatase Ammonia Total Creatine Kinase CK-MB (CK-2) CK-MB (CK-2) Rel Index Total Protein Albumin Urine WBC (Auto) Vancomycin Trough Salicylates Acetaminophen Plasma/Serum Alcohol Crossmatch 12/11/19 12/11/19 12/12/19 18:04 23:42 03:51 WBC RBC Hgb Hct MCH RDW Plt Count Lymph % (Auto) [place] % (Auto) [place] # Baso # Seg Neutrophils % Seg Neuts % (Manual) Lymphocytes % (Manual) Monocytes % (Manual) Seg Neutrophils # Seg Neutrophils # Man Lymphocytes # (Manual) Monocytes # (Manual) Eosinophils # (Manual) Basophils # (Manual) PT INR APTT ABG pH ABG pO2 ABG HCO3 ABG O2 Saturation ABG Base Excess ABG Hemoglobin Oxyhemoglobin Sodium 149 H Potassium Chloride Carbon Dioxide 20 L D BUN 77 H Creatinine 2.8 H Glucose POC Glucose 133 H 154 H Lactic Acid Calcium Ionized Calcium Phosphorus Magnesium Total Bilirubin AST ALT Alkaline Phosphatase Ammonia Total Creatine Kinase CK-MB (CK-2) CK-MB (CK-2) Rel Index Total Protein Albumin Urine WBC (Auto) Vancomycin Trough Salicylates Acetaminophen Plasma/Serum Alcohol Crossmatch 12/12/19 12/12/19 12/12/19 05:18 05:26 10:30 WBC 18.0 H RBC 2.51 L Hgb 6.8 L Hct 22.0 L MCH 27 L RDW 19.9 H Plt Count 582 H Lymph % (Auto) [place] % (Auto) [place] # Baso # Seg Neutrophils % Seg Neuts % (Manual) Lymphocytes % (Manual) Monocytes % (Manual) Seg Neutrophils # Seg Neutrophils # Man Lymphocytes # (Manual) Monocytes # (Manual) Eosinophils # (Manual) Basophils # (Manual) PT INR APTT ABG pH ABG pO2 ABG HCO3 ABG O2 Saturation ABG Base Excess ABG Hemoglobin Oxyhemoglobin Sodium Potassium Chloride Carbon Dioxide BUN Creatinine Glucose POC Glucose 135 H Lactic Acid Calcium Ionized Calcium Phosphorus Magnesium Total Bilirubin AST ALT Alkaline Phosphatase Ammonia Total Creatine Kinase CK-MB (CK-2) CK-MB (CK-2) Rel Index Total Protein Albumin Urine WBC (Auto) Vancomycin Trough Salicylates Acetaminophen Plasma/Serum Alcohol Crossmatch See Detail 12/12/19 12/12/19 12/12/19 11:44 18:10 23:21 WBC RBC Hgb Hct MCH RDW Plt Count Lymph % (Auto) [place] % (Auto) [place] # Baso # Seg Neutrophils % Seg Neuts % (Manual) Lymphocytes % (Manual) Monocytes % (Manual) Seg Neutrophils # Seg Neutrophils # Man Lymphocytes # (Manual) Monocytes # (Manual) Eosinophils # (Manual) Basophils # (Manual) PT INR APTT ABG pH ABG pO2 ABG HCO3 ABG O2 Saturation ABG Base Excess ABG Hemoglobin Oxyhemoglobin Sodium Potassium Chloride Carbon Dioxide BUN Creatinine Glucose POC Glucose 108 H 107 H 126 H Lactic Acid Calcium Ionized Calcium Phosphorus Magnesium Total Bilirubin AST ALT Alkaline Phosphatase Ammonia Total Creatine Kinase CK-MB (CK-2) CK-MB (CK-2) Rel Index Total Protein Albumin Urine WBC (Auto) Vancomycin Trough Salicylates Acetaminophen Plasma/Serum Alcohol Crossmatch 12/13/19 12/13/19 12/13/19 05:41 07:48 07:48 WBC 38.3 H RBC 2.37 L Hgb 6.3 L Hct 20.9 L MCH 27 L RDW 20.2 H Plt Count 546 H Lymph % (Auto) [place] % (Auto) [place] # Baso # Seg Neutrophils % Seg Neuts % (Manual) 93.0 H Lymphocytes % (Manual) 1.0 L Monocytes % (Manual) Seg Neutrophils # Seg Neutrophils # Man 35.6 H Lymphocytes # (Manual) 0.4 L Monocytes # (Manual) Eosinophils # (Manual) Basophils # (Manual) 0.4 H PT INR APTT ABG pH ABG pO2 ABG HCO3 ABG O2 Saturation ABG Base Excess ABG Hemoglobin Oxyhemoglobin Sodium 152 H Potassium 3.1 L D Chloride 111.9 H Carbon Dioxide 21 L BUN 53 H Creatinine 1.9 H Glucose 141 H POC Glucose 128 H Lactic Acid Calcium Ionized Calcium Phosphorus Magnesium Total Bilirubin AST ALT Alkaline Phosphatase 316 H Ammonia Total Creatine Kinase CK-MB (CK-2) CK-MB (CK-2) Rel Index Total Protein Albumin 2.4 L Urine WBC (Auto) Vancomycin Trough Salicylates Acetaminophen Plasma/Serum Alcohol Crossmatch 12/13/19 12/13/19 12/14/19 18:17 23:19 05:36 WBC RBC Hgb Hct MCH RDW Plt Count Lymph % (Auto) [place] % (Auto) [place] # Baso # Seg Neutrophils % Seg Neuts % (Manual) Lymphocytes % (Manual) Monocytes % (Manual) Seg Neutrophils # Seg Neutrophils # Man Lymphocytes # (Manual) Monocytes # (Manual) Eosinophils # (Manual) Basophils # (Manual) PT INR APTT ABG pH ABG pO2 ABG HCO3 ABG O2 Saturation ABG Base Excess ABG Hemoglobin Oxyhemoglobin Sodium Potassium Chloride Carbon Dioxide BUN Creatinine Glucose POC Glucose 141 H 158 H 182 H Lactic Acid Calcium Ionized Calcium Phosphorus Magnesium Total Bilirubin AST ALT Alkaline Phosphatase Ammonia Total Creatine Kinase CK-MB (CK-2) CK-MB (CK-2) Rel Index Total Protein Albumin Urine WBC (Auto) Vancomycin Trough Salicylates Acetaminophen Plasma/Serum Alcohol Crossmatch 12/14/19 12/14/19 12/14/19 08:48 08:48 10:31 WBC 33.3 H RBC 2.70 L Hgb 7.9 L 8.0 L Hct 25.3 L 24.0 L MCH RDW 19.2 H Plt Count 476 H Lymph % (Auto) [place] % (Auto) [place] # Baso # Seg Neutrophils % Seg Neuts % (Manual) Lymphocytes % (Manual) Monocytes % (Manual) Seg Neutrophils # Seg Neutrophils # Man Lymphocytes # (Manual) Monocytes # (Manual) Eosinophils # (Manual) Basophils # (Manual) PT INR APTT ABG pH ABG pO2 ABG HCO3 ABG O2 Saturation ABG Base Excess ABG Hemoglobin Oxyhemoglobin Sodium 153 H Potassium 2.5 L* Chloride 114.9 H Carbon Dioxide 20 L BUN 38 H Creatinine 1.4 H Glucose 177 H POC Glucose Lactic Acid Calcium Ionized Calcium Phosphorus Magnesium Total Bilirubin AST ALT Alkaline Phosphatase Ammonia Total Creatine Kinase CK-MB (CK-2) CK-MB (CK-2) Rel Index Total Protein Albumin Urine WBC (Auto) Vancomycin Trough Salicylates Acetaminophen Plasma/Serum Alcohol Crossmatch 12/14/19 12/14/19 12/14/19 12:57 16:15 17:50 WBC RBC Hgb Hct MCH RDW Plt Count Lymph % (Auto) [place] % (Auto) [place] # Baso # Seg Neutrophils % Seg Neuts % (Manual) Lymphocytes % (Manual) Monocytes % (Manual) Seg Neutrophils # Seg Neutrophils # Man Lymphocytes # (Manual) Monocytes # (Manual) Eosinophils # (Manual) Basophils # (Manual) PT INR APTT ABG pH ABG pO2 73.6 L ABG HCO3 ABG O2 Saturation ABG Base Excess ABG Hemoglobin 7.6 L Oxyhemoglobin 94.0 L Sodium Potassium Chloride Carbon Dioxide BUN Creatinine Glucose POC Glucose 174 H 150 H Lactic Acid Calcium Ionized Calcium Phosphorus Magnesium Total Bilirubin AST ALT Alkaline Phosphatase Ammonia Total Creatine Kinase CK-MB (CK-2) CK-MB (CK-2) Rel Index Total Protein Albumin Urine WBC (Auto) Vancomycin Trough Salicylates Acetaminophen Plasma/Serum Alcohol Crossmatch 12/15/19 12/15/19 12/15/19 00:28 05:27 07:23 WBC 30.0 H RBC 3.11 L Hgb 8.6 L Hct 27.7 L MCH RDW 20.0 H Plt Count 473 H Lymph % (Auto) [place] % (Auto) [place] # Baso # Seg Neutrophils % Seg Neuts % (Manual) Lymphocytes % (Manual) Monocytes % (Manual) Seg Neutrophils # Seg Neutrophils # Man Lymphocytes # (Manual) Monocytes # (Manual) Eosinophils # (Manual) Basophils # (Manual) PT INR APTT ABG pH ABG pO2 ABG HCO3 ABG O2 Saturation ABG Base Excess ABG Hemoglobin Oxyhemoglobin Sodium Potassium Chloride Carbon Dioxide BUN Creatinine Glucose POC Glucose 167 H 148 H Lactic Acid Calcium Ionized Calcium Phosphorus Magnesium Total Bilirubin AST ALT Alkaline Phosphatase Ammonia Total Creatine Kinase CK-MB (CK-2) CK-MB (CK-2) Rel Index Total Protein Albumin Urine WBC (Auto) Vancomycin Trough Salicylates Acetaminophen Plasma/Serum Alcohol Crossmatch 12/15/19 12/15/19 12/15/19 07:23 12:21 17:41 WBC RBC Hgb Hct MCH RDW Plt Count Lymph % (Auto) [place] % (Auto) [place] # Baso # Seg Neutrophils % Seg Neuts % (Manual) Lymphocytes % (Manual) Monocytes % (Manual) Seg Neutrophils # Seg Neutrophils # Man Lymphocytes # (Manual) Monocytes # (Manual) Eosinophils # (Manual) Basophils # (Manual) PT INR APTT ABG pH ABG pO2 ABG HCO3 ABG O2 Saturation ABG Base Excess ABG Hemoglobin Oxyhemoglobin Sodium 147 H Potassium 3.5 L D Chloride 111.2 H Carbon Dioxide 19 L BUN 29 H Creatinine Glucose 126 H POC Glucose 154 H 144 H Lactic Acid Calcium Ionized Calcium Phosphorus Magnesium Total Bilirubin AST ALT Alkaline Phosphatase Ammonia Total Creatine Kinase CK-MB (CK-2) CK-MB (CK-2) Rel Index Total Protein Albumin Urine WBC (Auto) Vancomycin Trough Salicylates Acetaminophen Plasma/Serum Alcohol Crossmatch 12/16/19 12/16/19 12/16/19 00:22 05:30 05:44 WBC 30.8 H RBC 2.58 L Hgb 7.1 L Hct 22.7 L MCH RDW 19.6 H Plt Count 451 H Lymph % (Auto) [place] % (Auto) [place] # Baso # Seg Neutrophils % Seg Neuts % (Manual) Lymphocytes % (Manual) Monocytes % (Manual) Seg Neutrophils # Seg Neutrophils # Man Lymphocytes # (Manual) Monocytes # (Manual) Eosinophils # (Manual) Basophils # (Manual) PT INR APTT ABG pH ABG pO2 ABG HCO3 ABG O2 Saturation ABG Base Excess ABG Hemoglobin Oxyhemoglobin Sodium Potassium Chloride Carbon Dioxide BUN Creatinine Glucose POC Glucose 139 H 126 H Lactic Acid Calcium Ionized Calcium Phosphorus Magnesium Total Bilirubin AST ALT Alkaline Phosphatase Ammonia Total Creatine Kinase CK-MB (CK-2) CK-MB (CK-2) Rel Index Total Protein Albumin Urine WBC (Auto) Vancomycin Trough Salicylates Acetaminophen Plasma/Serum Alcohol Crossmatch 12/16/19 12/16/19 12/16/19 05:44 11:48 17:37 WBC RBC Hgb Hct MCH RDW Plt Count Lymph % (Auto) [place] % (Auto) [place] # Baso # Seg Neutrophils % Seg Neuts % (Manual) Lymphocytes % (Manual) Monocytes % (Manual) Seg Neutrophils # Seg Neutrophils # Man Lymphocytes # (Manual) Monocytes # (Manual) Eosinophils # (Manual) Basophils # (Manual) PT INR APTT ABG pH ABG pO2 ABG HCO3 ABG O2 Saturation ABG Base Excess ABG Hemoglobin Oxyhemoglobin Sodium Potassium 3.4 L Chloride 109.2 H Carbon Dioxide 19 L BUN 27 H Creatinine Glucose 124 H POC Glucose 125 H 148 H Lactic Acid Calcium Ionized Calcium Phosphorus Magnesium Total Bilirubin AST ALT Alkaline Phosphatase Ammonia Total Creatine Kinase CK-MB (CK-2) CK-MB (CK-2) Rel Index Total Protein Albumin Urine WBC (Auto) Vancomycin Trough Salicylates Acetaminophen Plasma/Serum Alcohol Crossmatch 12/16/19 12/17/19 12/17/19 23:43 05:28 12:47 WBC RBC Hgb Hct MCH RDW Plt Count Lymph % (Auto) [place] % (Auto) [place] # Baso # Seg Neutrophils % Seg Neuts % (Manual) Lymphocytes % (Manual) Monocytes % (Manual) Seg Neutrophils # Seg Neutrophils # Man Lymphocytes # (Manual) Monocytes # (Manual) Eosinophils # (Manual) Basophils # (Manual) PT INR APTT ABG pH ABG pO2 ABG HCO3 ABG O2 Saturation ABG Base Excess ABG Hemoglobin Oxyhemoglobin Sodium Potassium Chloride Carbon Dioxide BUN Creatinine Glucose POC Glucose 142 H 140 H 125 H Lactic Acid Calcium Ionized Calcium Phosphorus Magnesium Total Bilirubin AST ALT Alkaline Phosphatase Ammonia Total Creatine Kinase CK-MB (CK-2) CK-MB (CK-2) Rel Index Total Protein Albumin Urine WBC (Auto) Vancomycin Trough Salicylates Acetaminophen Plasma/Serum Alcohol Crossmatch 12/17/19 12/17/19 12/17/19 17:05 18:00 Unknown WBC RBC Hgb Hct MCH RDW Plt Count Lymph % (Auto) [place] % (Auto) [place] # Baso # Seg Neutrophils % Seg Neuts % (Manual) Lymphocytes % (Manual) Monocytes % (Manual) Seg Neutrophils # Seg Neutrophils # Man Lymphocytes # (Manual) Monocytes # (Manual) Eosinophils # (Manual) Basophils # (Manual) PT INR APTT ABG pH ABG pO2 68.1 L ABG HCO3 ABG O2 Saturation 93.7 L ABG Base Excess ABG Hemoglobin 5.0 L Oxyhemoglobin 91.7 L Sodium Potassium Chloride Carbon Dioxide BUN Creatinine Glucose POC Glucose 140 H Lactic Acid Calcium Ionized Calcium Phosphorus Magnesium Total Bilirubin AST ALT Alkaline Phosphatase Ammonia Total Creatine Kinase CK-MB (CK-2) CK-MB (CK-2) Rel Index Total Protein Albumin Urine WBC (Auto) Vancomycin Trough Salicylates Acetaminophen Plasma/Serum Alcohol Crossmatch 12/18/19 12/18/19 12/18/19 00:16 04:53 04:53 WBC 28.6 H RBC 2.27 L Hgb 6.3 L Hct 19.5 L* MCH RDW 20.0 H Plt Count 497 H Lymph % (Auto) [place] % (Auto) [place] # Baso # Seg Neutrophils % Seg Neuts % (Manual) Lymphocytes % (Manual) Monocytes % (Manual) Seg Neutrophils # Seg Neutrophils # Man Lymphocytes # (Manual) Monocytes # (Manual) Eosinophils # (Manual) Basophils # (Manual) PT INR APTT ABG pH ABG pO2 ABG HCO3 ABG O2 Saturation ABG Base Excess ABG Hemoglobin Oxyhemoglobin Sodium Potassium Chloride 107.9 H Carbon Dioxide 20 L BUN 27 H Creatinine 0.6 L Glucose 116 H POC Glucose 123 H Lactic Acid Calcium Ionized Calcium Phosphorus Magnesium Total Bilirubin AST ALT Alkaline Phosphatase Ammonia Total Creatine Kinase CK-MB (CK-2) CK-MB (CK-2) Rel Index Total Protein Albumin Urine WBC (Auto) Vancomycin Trough Salicylates Acetaminophen Plasma/Serum Alcohol Crossmatch 12/18/19 12/18/19 12/18/19 06:38 11:22 12:08 WBC RBC Hgb Hct MCH RDW Plt Count Lymph % (Auto) [place] % (Auto) [place] # Baso # Seg Neutrophils % Seg Neuts % (Manual) Lymphocytes % (Manual) Monocytes % (Manual) Seg Neutrophils # Seg Neutrophils # Man Lymphocytes # (Manual) Monocytes # (Manual) Eosinophils # (Manual) Basophils # (Manual) PT INR APTT ABG pH ABG pO2 ABG HCO3 ABG O2 Saturation ABG Base Excess ABG Hemoglobin Oxyhemoglobin Sodium Potassium Chloride Carbon Dioxide BUN Creatinine Glucose POC Glucose 120 H 127 H Lactic Acid Calcium Ionized Calcium Phosphorus Magnesium Total Bilirubin AST ALT Alkaline Phosphatase Ammonia Total Creatine Kinase CK-MB (CK-2) CK-MB (CK-2) Rel Index Total Protein Albumin Urine WBC (Auto) Vancomycin Trough Salicylates Acetaminophen Plasma/Serum Alcohol Crossmatch See Detail 12/18/19 12/18/19 12/18/19 14:05 17:49 23:53 WBC RBC Hgb Hct MCH RDW Plt Count Lymph % (Auto) [place] % (Auto) [place] # Baso # Seg Neutrophils % Seg Neuts % (Manual) Lymphocytes % (Manual) Monocytes % (Manual) Seg Neutrophils # Seg Neutrophils # Man Lymphocytes # (Manual) Monocytes # (Manual) Eosinophils # (Manual) Basophils # (Manual) PT INR APTT ABG pH 7.267 L ABG pO2 69.8 L ABG HCO3 ABG O2 Saturation 88.4 L ABG Base Excess ABG Hemoglobin 7.1 L Oxyhemoglobin 86.4 L Sodium Potassium Chloride Carbon Dioxide BUN Creatinine Glucose POC Glucose 157 H 128 H Lactic Acid Calcium Ionized Calcium Phosphorus Magnesium Total Bilirubin AST ALT Alkaline Phosphatase Ammonia Total Creatine Kinase CK-MB (CK-2) CK-MB (CK-2) Rel Index Total Protein Albumin Urine WBC (Auto) Vancomycin Trough Salicylates Acetaminophen Plasma/Serum Alcohol Crossmatch 12/19/19 12/19/19 12/19/19 03:37 03:37 05:25 WBC 31.3 H RBC 2.60 L Hgb 7.6 L Hct 23.0 L MCH RDW 19.4 H Plt Count 530 H Lymph % (Auto) [place] % (Auto) [place] # Baso # Seg Neutrophils % Seg Neuts % (Manual) Lymphocytes % (Manual) Monocytes % (Manual) Seg Neutrophils # Seg Neutrophils # Man Lymphocytes # (Manual) Monocytes # (Manual) Eosinophils # (Manual) Basophils # (Manual) PT INR APTT ABG pH ABG pO2 ABG HCO3 ABG O2 Saturation ABG Base Excess ABG Hemoglobin Oxyhemoglobin Sodium Potassium Chloride Carbon Dioxide 18 L BUN 36 H Creatinine Glucose 111 H POC Glucose 123 H Lactic Acid Calcium Ionized Calcium Phosphorus Magnesium Total Bilirubin AST ALT Alkaline Phosphatase Ammonia Total Creatine Kinase CK-MB (CK-2) CK-MB (CK-2) Rel Index Total Protein Albumin Urine WBC (Auto) Vancomycin Trough Salicylates Acetaminophen Plasma/Serum Alcohol Crossmatch 12/19/19 12/19/19 12/20/19 12:59 18:33 00:00 WBC RBC Hgb Hct MCH RDW Plt Count Lymph % (Auto) [place] % (Auto) [place] # Baso # Seg Neutrophils % Seg Neuts % (Manual) Lymphocytes % (Manual) Monocytes % (Manual) Seg Neutrophils # Seg Neutrophils # Man Lymphocytes # (Manual) Monocytes # (Manual) Eosinophils # (Manual) Basophils # (Manual) PT INR APTT ABG pH ABG pO2 ABG HCO3 ABG O2 Saturation ABG Base Excess ABG Hemoglobin Oxyhemoglobin Sodium Potassium Chloride Carbon Dioxide BUN Creatinine Glucose POC Glucose 130 H 118 H 135 H Lactic Acid Calcium Ionized Calcium Phosphorus Magnesium Total Bilirubin AST ALT Alkaline Phosphatase Ammonia Total Creatine Kinase CK-MB (CK-2) CK-MB (CK-2) Rel Index Total Protein Albumin Urine WBC (Auto) Vancomycin Trough Salicylates Acetaminophen Plasma/Serum Alcohol Crossmatch 12/20/19 12/20/19 12/20/19 05:46 12:31 18:07 WBC RBC Hgb Hct MCH RDW Plt Count Lymph % (Auto) [place] % (Auto) [place] # Baso # Seg Neutrophils % Seg Neuts % (Manual) Lymphocytes % (Manual) Monocytes % (Manual) Seg Neutrophils # Seg Neutrophils # Man Lymphocytes # (Manual) Monocytes # (Manual) Eosinophils # (Manual) Basophils # (Manual) PT INR APTT ABG pH ABG pO2 ABG HCO3 ABG O2 Saturation ABG Base Excess ABG Hemoglobin Oxyhemoglobin Sodium Potassium Chloride Carbon Dioxide BUN Creatinine Glucose POC Glucose 131 H 128 H 134 H Lactic Acid Calcium Ionized Calcium Phosphorus Magnesium Total Bilirubin AST ALT Alkaline Phosphatase Ammonia Total Creatine Kinase CK-MB (CK-2) CK-MB (CK-2) Rel Index Total Protein Albumin Urine WBC (Auto) Vancomycin Trough Salicylates Acetaminophen Plasma/Serum Alcohol Crossmatch 12/21/19 12/21/19 12/21/19 03:28 03:28 07:21 WBC 29.4 H RBC 2.30 L Hgb 6.8 L Hct 20.2 L MCH RDW 20.2 H Plt Count 746 H Lymph % (Auto) [place] % (Auto) [place] # Baso # Seg Neutrophils % Seg Neuts % (Manual) 85.0 H Lymphocytes % (Manual) 8.0 L Monocytes % (Manual) Seg Neutrophils # Seg Neutrophils # Man 25.0 H Lymphocytes # (Manual) Monocytes # (Manual) 1.5 H Eosinophils # (Manual) 0.6 H Basophils # (Manual) PT INR APTT ABG pH ABG pO2 ABG HCO3 ABG O2 Saturation ABG Base Excess ABG Hemoglobin Oxyhemoglobin Sodium Potassium Chloride Carbon Dioxide 17 L BUN 57 H Creatinine 1.4 H D Glucose POC Glucose 124 H Lactic Acid Calcium Ionized Calcium Phosphorus Magnesium Total Bilirubin AST ALT Alkaline Phosphatase Ammonia Total Creatine Kinase CK-MB (CK-2) CK-MB (CK-2) Rel Index Total Protein Albumin Urine WBC (Auto) Vancomycin Trough Salicylates Acetaminophen Plasma/Serum Alcohol Crossmatch 12/21/19 12/21/19 12/21/19 08:56 12:06 14:53 WBC RBC Hgb 7.2 L Hct 22.9 L MCH RDW Plt Count Lymph % (Auto) Bremer % (Auto) Bremer # Baso # Seg Neutrophils % Seg Neuts % (Manual) Lymphocytes % (Manual) Monocytes % (Manual) Seg Neutrophils # Seg Neutrophils # Man Lymphocytes # (Manual) Monocytes # (Manual) Eosinophils # (Manual) Basophils # (Manual) PT INR APTT ABG pH ABG pO2 ABG HCO3 ABG O2 Saturation ABG Base Excess ABG Hemoglobin Oxyhemoglobin Sodium Potassium Chloride Carbon Dioxide BUN Creatinine Glucose POC Glucose 116 H Lactic Acid Calcium Ionized Calcium Phosphorus Magnesium Total Bilirubin AST ALT Alkaline Phosphatase Ammonia Total Creatine Kinase CK-MB (CK-2) CK-MB (CK-2) Rel Index Total Protein Albumin Urine WBC (Auto) Vancomycin Trough 33.8 H Salicylates Acetaminophen Plasma/Serum Alcohol Crossmatch 12/21/19 12/21/19 12/21/19 14:54 17:27 23:49 WBC RBC Hgb Hct MCH RDW Plt Count Lymph % (Auto) [place] % (Auto) Bre[place] # Baso # Seg Neutrophils % Seg Neuts % (Manual) Lymphocytes % (Manual) Monocytes % (Manual) Seg Neutrophils # Seg Neutrophils # Man Lymphocytes # (Manual) Monocytes # (Manual) Eosinophils # (Manual) Basophils # (Manual) PT INR APTT ABG pH ABG pO2 ABG HCO3 ABG O2 Saturation ABG Base Excess ABG Hemoglobin Oxyhemoglobin Sodium Potassium Chloride Carbon Dioxide BUN Creatinine Glucose POC Glucose 145 H 127 H Lactic Acid Calcium Ionized Calcium Phosphorus Magnesium Total Bilirubin AST ALT Alkaline Phosphatase Ammonia Total Creatine Kinase CK-MB (CK-2) CK-MB (CK-2) Rel Index Total Protein Albumin Urine WBC (Auto) Vancomycin Trough Salicylates Acetaminophen Plasma/Serum Alcohol Crossmatch See Detail 12/22/19 12/22/19 12/22/19 04:43 05:56 08:40 WBC RBC Hgb Hct MCH RDW Plt Count Lymph % (Auto) [place] % (Auto) Bre[place] # Baso # Seg Neutrophils % Seg Neuts % (Manual) Lymphocytes % (Manual) Monocytes % (Manual) Seg Neutrophils # Seg Neutrophils # Man Lymphocytes # (Manual) Monocytes # (Manual) Eosinophils # (Manual) Basophils # (Manual) PT INR APTT ABG pH ABG pO2 75.6 L ABG HCO3 ABG O2 Saturation ABG Base Excess -2.6 L ABG Hemoglobin 6.8 L Oxyhemoglobin 94.6 L Sodium Potassium Chloride Carbon Dioxide 17 L BUN 60 H Creatinine 1.4 H Glucose 126 H POC Glucose 153 H Lactic Acid Calcium Ionized Calcium Phosphorus Magnesium Total Bilirubin AST ALT Alkaline Phosphatase Ammonia Total Creatine Kinase CK-MB (CK-2) CK-MB (CK-2) Rel Index Total Protein Albumin Urine WBC (Auto) Vancomycin Trough Salicylates Acetaminophen Plasma/Serum Alcohol Crossmatch 12/22/19 12/22/19 12/23/19 12:07 17:49 04:30 WBC 22.4 H RBC 2.68 L Hgb 7.6 L Hct 22.9 L MCH RDW 19.9 H Plt Count 998 H Lymph % (Auto) Bre[place] % (Auto) Bre[place] # Baso # Seg Neutrophils % Seg Neuts % (Manual) 88.0 H Lymphocytes % (Manual) 2.0 L Monocytes % (Manual) 9.0 H Seg Neutrophils # Seg Neutrophils # Man 19.7 H Lymphocytes # (Manual) 0.4 L Monocytes # (Manual) 2.0 H Eosinophils # (Manual) Basophils # (Manual) PT INR APTT ABG pH ABG pO2 ABG HCO3 ABG O2 Saturation ABG Base Excess ABG Hemoglobin Oxyhemoglobin Sodium Potassium Chloride Carbon Dioxide BUN Creatinine Glucose POC Glucose 140 H 116 H Lactic Acid Calcium Ionized Calcium Phosphorus Magnesium Total Bilirubin AST ALT Alkaline Phosphatase Ammonia Total Creatine Kinase CK-MB (CK-2) CK-MB (CK-2) Rel Index Total Protein Albumin Urine WBC (Auto) Vancomycin Trough Salicylates Acetaminophen Plasma/Serum Alcohol Crossmatch 12/23/19 12/23/19 12/23/19 04:30 12:00 18:06 WBC RBC Hgb Hct MCH RDW Plt Count Lymph % (Auto) [place] % (Auto) [place] # Baso # Seg Neutrophils % Seg Neuts % (Manual) Lymphocytes % (Manual) Monocytes % (Manual) Seg Neutrophils # Seg Neutrophils # Man Lymphocytes # (Manual) Monocytes # (Manual) Eosinophils # (Manual) Basophils # (Manual) PT INR APTT ABG pH ABG pO2 ABG HCO3 ABG O2 Saturation ABG Base Excess ABG Hemoglobin Oxyhemoglobin Sodium Potassium 5.2 H Chloride Carbon Dioxide 21 L BUN 69 H Creatinine 1.5 H Glucose 117 H POC Glucose 128 H 138 H Lactic Acid Calcium Ionized Calcium Phosphorus Magnesium Total Bilirubin AST ALT Alkaline Phosphatase Ammonia Total Creatine Kinase CK-MB (CK-2) CK-MB (CK-2) Rel Index Total Protein Albumin Urine WBC (Auto) Vancomycin Trough Salicylates Acetaminophen Plasma/Serum Alcohol Crossmatch 12/23/19 12/24/19 12/24/19 23:46 04:31 05:08 WBC RBC Hgb Hct MCH RDW Plt Count Lymph % (Auto) [place] % (Auto) [place] # Baso # Seg Neutrophils % Seg Neuts % (Manual) Lymphocytes % (Manual) Monocytes % (Manual) Seg Neutrophils # Seg Neutrophils # Man Lymphocytes # (Manual) Monocytes # (Manual) Eosinophils # (Manual) Basophils # (Manual) PT INR APTT ABG pH ABG pO2 ABG HCO3 ABG O2 Saturation ABG Base Excess ABG Hemoglobin Oxyhemoglobin Sodium Potassium 5.3 H Chloride 107.6 H Carbon Dioxide 20 L BUN 72 H Creatinine 1.6 H Glucose 120 H POC Glucose 120 H 140 H Lactic Acid Calcium Ionized Calcium Phosphorus Magnesium Total Bilirubin AST ALT Alkaline Phosphatase Ammonia Total Creatine Kinase CK-MB (CK-2) CK-MB (CK-2) Rel Index Total Protein Albumin Urine WBC (Auto) Vancomycin Trough Salicylates Acetaminophen Plasma/Serum Alcohol Crossmatch 12/24/19 12/24/19 12/25/19 11:58 17:49 03:47 WBC 36.2 H RBC 2.92 L Hgb 8.4 L Hct 26.1 L MCH RDW 20.2 H Plt Count 942 H Lymph % (Auto) Bre[place] % (Auto) Bre[place] # Baso # Seg Neutrophils % Seg Neuts % (Manual) 97.5 H Lymphocytes % (Manual) 1.0 L Monocytes % (Manual) Seg Neutrophils # Seg Neutrophils # Man 35.3 H Lymphocytes # (Manual) 0.4 L Monocytes # (Manual) Eosinophils # (Manual) Basophils # (Manual) PT INR APTT ABG pH ABG pO2 ABG HCO3 ABG O2 Saturation ABG Base Excess ABG Hemoglobin Oxyhemoglobin Sodium Potassium Chloride Carbon Dioxide BUN Creatinine Glucose POC Glucose 146 H 131 H Lactic Acid Calcium Ionized Calcium Phosphorus Magnesium Total Bilirubin AST ALT Alkaline Phosphatase Ammonia Total Creatine Kinase CK-MB (CK-2) CK-MB (CK-2) Rel Index Total Protein Albumin Urine WBC (Auto) Vancomycin Trough Salicylates Acetaminophen Plasma/Serum Alcohol Crossmatch 12/25/19 12/25/19 12/25/19 03:47 05:30 12:23 WBC RBC Hgb Hct MCH RDW Plt Count Lymph % (Auto) [place] % (Auto) [place] # Baso # Seg Neutrophils % Seg Neuts % (Manual) Lymphocytes % (Manual) Monocytes % (Manual) Seg Neutrophils # Seg Neutrophils # Man Lymphocytes # (Manual) Monocytes # (Manual) Eosinophils # (Manual) Basophils # (Manual) PT INR APTT ABG pH ABG pO2 ABG HCO3 ABG O2 Saturation ABG Base Excess ABG Hemoglobin Oxyhemoglobin Sodium Potassium Chloride Carbon Dioxide 15 L BUN 70 H Creatinine 1.7 H Glucose 153 H POC Glucose 169 H 135 H Lactic Acid Calcium Ionized Calcium Phosphorus Magnesium Total Bilirubin AST ALT Alkaline Phosphatase Ammonia Total Creatine Kinase CK-MB (CK-2) CK-MB (CK-2) Rel Index Total Protein Albumin Urine WBC (Auto) Vancomycin Trough Salicylates Acetaminophen Plasma/Serum Alcohol Crossmatch 12/25/19 12/25/19 12/26/19 17:37 23:29 09:47 WBC 22.1 H RBC 2.83 L Hgb 7.9 L Hct 25.5 L MCH RDW 20.0 H Plt Count 894 H Lymph % (Auto) [place] % (Auto) [place] # Baso # Seg Neutrophils % Seg Neuts % (Manual) Lymphocytes % (Manual) Monocytes % (Manual) Seg Neutrophils # Seg Neutrophils # Man Lymphocytes # (Manual) Monocytes # (Manual) Eosinophils # (Manual) Basophils # (Manual) PT INR APTT ABG pH ABG pO2 ABG HCO3 ABG O2 Saturation ABG Base Excess ABG Hemoglobin Oxyhemoglobin Sodium Potassium Chloride Carbon Dioxide BUN Creatinine Glucose POC Glucose 120 H 140 H Lactic Acid Calcium Ionized Calcium Phosphorus Magnesium Total Bilirubin AST ALT Alkaline Phosphatase Ammonia Total Creatine Kinase CK-MB (CK-2) CK-MB (CK-2) Rel Index Total Protein Albumin Urine WBC (Auto) Vancomycin Trough Salicylates Acetaminophen Plasma/Serum Alcohol Crossmatch 12/26/19 12/26/19 12/26/19 09:47 11:46 17:52 WBC RBC Hgb Hct MCH RDW Plt Count Lymph % (Auto) [place] % (Auto) [place] # Baso # Seg Neutrophils % Seg Neuts % (Manual) Lymphocytes % (Manual) Monocytes % (Manual) Seg Neutrophils # Seg Neutrophils # Man Lymphocytes # (Manual) Monocytes # (Manual) Eosinophils # (Manual) Basophils # (Manual) PT INR APTT ABG pH ABG pO2 ABG HCO3 ABG O2 Saturation ABG Base Excess ABG Hemoglobin Oxyhemoglobin Sodium Potassium Chloride Carbon Dioxide 18 L BUN 65 H Creatinine 1.4 H Glucose 132 H POC Glucose 110 H 145 H Lactic Acid Calcium Ionized Calcium Phosphorus Magnesium Total Bilirubin AST ALT Alkaline Phosphatase Ammonia Total Creatine Kinase CK-MB (CK-2) CK-MB (CK-2) Rel Index Total Protein Albumin Urine WBC (Auto) Vancomycin Trough Salicylates Acetaminophen Plasma/Serum Alcohol Crossmatch 12/27/19 12/27/19 12/27/19 00:01 03:42 03:42 WBC 18.0 H RBC 2.86 L Hgb 8.0 L Hct 25.2 L MCH RDW 19.2 H Plt Count 873 H Lymph % (Auto) 8.4 L Bremer % (Auto) 7.5 H Bremer # 1.4 H Baso # 0.2 H Seg Neutrophils % 82.2 H Seg Neuts % (Manual) Lymphocytes % (Manual) Monocytes % (Manual) Seg Neutrophils # 14.8 H Seg Neutrophils # Man Lymphocytes # (Manual) Monocytes # (Manual) Eosinophils # (Manual) Basophils # (Manual) PT INR APTT ABG pH ABG pO2 ABG HCO3 ABG O2 Saturation ABG Base Excess ABG Hemoglobin Oxyhemoglobin Sodium Potassium Chloride Carbon Dioxide BUN 73 H Creatinine 1.4 H Glucose 119 H POC Glucose 124 H Lactic Acid Calcium Ionized Calcium Phosphorus Magnesium Total Bilirubin AST ALT Alkaline Phosphatase Ammonia Total Creatine Kinase CK-MB (CK-2) CK-MB (CK-2) Rel Index Total Protein Albumin Urine WBC (Auto) Vancomycin Trough Salicylates Acetaminophen Plasma/Serum Alcohol Crossmatch 12/27/19 12/27/19 12/27/19 05:45 11:45 17:29 WBC RBC Hgb Hct MCH RDW Plt Count Lymph % (Auto) [place] % (Auto) [place] # Baso # Seg Neutrophils % Seg Neuts % (Manual) Lymphocytes % (Manual) Monocytes % (Manual) Seg Neutrophils # Seg Neutrophils # Man Lymphocytes # (Manual) Monocytes # (Manual) Eosinophils # (Manual) Basophils # (Manual) PT INR APTT ABG pH ABG pO2 ABG HCO3 ABG O2 Saturation ABG Base Excess ABG Hemoglobin Oxyhemoglobin Sodium Potassium Chloride Carbon Dioxide BUN Creatinine Glucose POC Glucose 131 H 123 H 134 H Lactic Acid Calcium Ionized Calcium Phosphorus Magnesium Total Bilirubin AST ALT Alkaline Phosphatase Ammonia Total Creatine Kinase CK-MB (CK-2) CK-MB (CK-2) Rel Index Total Protein Albumin Urine WBC (Auto) Vancomycin Trough Salicylates Acetaminophen Plasma/Serum Alcohol Crossmatch 12/28/19 12/28/19 12/28/19 00:12 05:14 11:53 WBC RBC Hgb Hct MCH RDW Plt Count Lymph % (Auto) [place] % (Auto) [place] # Baso # Seg Neutrophils % Seg Neuts % (Manual) Lymphocytes % (Manual) Monocytes % (Manual) Seg Neutrophils # Seg Neutrophils # Man Lymphocytes # (Manual) Monocytes # (Manual) Eosinophils # (Manual) Basophils # (Manual) PT INR APTT ABG pH ABG pO2 ABG HCO3 ABG O2 Saturation ABG Base Excess ABG Hemoglobin Oxyhemoglobin Sodium Potassium Chloride Carbon Dioxide BUN Creatinine Glucose POC Glucose 138 H 130 H 146 H Lactic Acid Calcium Ionized Calcium Phosphorus Magnesium Total Bilirubin AST ALT Alkaline Phosphatase Ammonia Total Creatine Kinase CK-MB (CK-2) CK-MB (CK-2) Rel Index Total Protein Albumin Urine WBC (Auto) Vancomycin Trough Salicylates Acetaminophen Plasma/Serum Alcohol Crossmatch 12/28/19 12/29/19 12/29/19 17:39 00:01 18:11 WBC RBC Hgb Hct MCH RDW Plt Count Lymph % (Auto) [place] % (Auto) [place] # Baso # Seg Neutrophils % Seg Neuts % (Manual) Lymphocytes % (Manual) Monocytes % (Manual) Seg Neutrophils # Seg Neutrophils # Man Lymphocytes # (Manual) Monocytes # (Manual) Eosinophils # (Manual) Basophils # (Manual) PT INR APTT ABG pH ABG pO2 ABG HCO3 ABG O2 Saturation ABG Base Excess ABG Hemoglobin Oxyhemoglobin Sodium Potassium Chloride Carbon Dioxide BUN Creatinine Glucose POC Glucose 117 H 139 H 130 H Lactic Acid Calcium Ionized Calcium Phosphorus Magnesium Total Bilirubin AST ALT Alkaline Phosphatase Ammonia Total Creatine Kinase CK-MB (CK-2) CK-MB (CK-2) Rel Index Total Protein Albumin Urine WBC (Auto) Vancomycin Trough Salicylates Acetaminophen Plasma/Serum Alcohol Crossmatch 12/29/19 12/30/19 12/30/19 23:09 00:02 01:06 WBC 16.7 H RBC 2.91 L Hgb 8.2 L Hct 25.4 L MCH RDW 18.7 H Plt Count 708 H Lymph % (Auto) 9.4 L Bre[place] % (Auto) Bremer # 0.9 H Baso # Seg Neutrophils % 83.5 H Seg Neuts % (Manual) Lymphocytes % (Manual) Monocytes % (Manual) Seg Neutrophils # 14.0 H Seg Neutrophils # Man Lymphocytes # (Manual) Monocytes # (Manual) Eosinophils # (Manual) Basophils # (Manual) PT INR APTT ABG pH ABG pO2 ABG HCO3 ABG O2 Saturation ABG Base Excess ABG Hemoglobin Oxyhemoglobin Sodium Potassium Chloride Carbon Dioxide BUN Creatinine Glucose POC Glucose 120 H 114 H Lactic Acid Calcium Ionized Calcium Phosphorus Magnesium Total Bilirubin AST ALT Alkaline Phosphatase Ammonia Total Creatine Kinase CK-MB (CK-2) CK-MB (CK-2) Rel Index Total Protein Albumin Urine WBC (Auto) Vancomycin Trough Salicylates Acetaminophen Plasma/Serum Alcohol Crossmatch 12/30/19 12/30/19 12/30/19 01:06 04:23 05:18 WBC RBC Hgb Hct MCH RDW Plt Count Lymph % (Auto) [place] % (Auto) [place] # Baso # Seg Neutrophils % Seg Neuts % (Manual) Lymphocytes % (Manual) Monocytes % (Manual) Seg Neutrophils # Seg Neutrophils # Man Lymphocytes # (Manual) Monocytes # (Manual) Eosinophils # (Manual) Basophils # (Manual) PT INR APTT ABG pH ABG pO2 ABG HCO3 ABG O2 Saturation ABG Base Excess ABG Hemoglobin 8.3 L Oxyhemoglobin Sodium Potassium Chloride Carbon Dioxide BUN 70 H Creatinine Glucose 122 H POC Glucose 130 H Lactic Acid Calcium Ionized Calcium Phosphorus Magnesium Total Bilirubin AST ALT Alkaline Phosphatase Ammonia Total Creatine Kinase CK-MB (CK-2) CK-MB (CK-2) Rel Index Total Protein Albumin Urine WBC (Auto) Vancomycin Trough Salicylates Acetaminophen Plasma/Serum Alcohol Crossmatch 12/30/19 12/30/19 12/30/19 05:40 12:17 17:43 WBC RBC Hgb Hct MCH RDW Plt Count Lymph % (Auto) [place] % (Auto) [place] # Baso # Seg Neutrophils % Seg Neuts % (Manual) Lymphocytes % (Manual) Monocytes % (Manual) Seg Neutrophils # Seg Neutrophils # Man Lymphocytes # (Manual) Monocytes # (Manual) Eosinophils # (Manual) Basophils # (Manual) PT INR APTT ABG pH ABG pO2 ABG HCO3 ABG O2 Saturation ABG Base Excess ABG Hemoglobin Oxyhemoglobin Sodium Potassium Chloride Carbon Dioxide BUN Creatinine Glucose POC Glucose 135 H 132 H 118 H Lactic Acid Calcium Ionized Calcium Phosphorus Magnesium Total Bilirubin AST ALT Alkaline Phosphatase Ammonia Total Creatine Kinase CK-MB (CK-2) CK-MB (CK-2) Rel Index Total Protein Albumin Urine WBC (Auto) Vancomycin Trough Salicylates Acetaminophen Plasma/Serum Alcohol Crossmatch 12/30/19 12/31/19 12/31/19 23:29 05:19 17:50 WBC RBC Hgb Hct MCH RDW Plt Count Lymph % (Auto) [place] % (Auto) [place] # Baso # Seg Neutrophils % Seg Neuts % (Manual) Lymphocytes % (Manual) Monocytes % (Manual) Seg Neutrophils # Seg Neutrophils # Man Lymphocytes # (Manual) Monocytes # (Manual) Eosinophils # (Manual) Basophils # (Manual) PT INR APTT ABG pH ABG pO2 ABG HCO3 ABG O2 Saturation ABG Base Excess ABG Hemoglobin Oxyhemoglobin Sodium Potassium Chloride Carbon Dioxide BUN Creatinine Glucose POC Glucose 114 H 109 H 116 H Lactic Acid Calcium Ionized Calcium Phosphorus Magnesium Total Bilirubin AST ALT Alkaline Phosphatase Ammonia Total Creatine Kinase CK-MB (CK-2) CK-MB (CK-2) Rel Index Total Protein Albumin Urine WBC (Auto) Vancomycin Trough Salicylates Acetaminophen Plasma/Serum Alcohol Crossmatch 01/01/20 01/01/20 01/01/20 00:10 05:19 12:02 WBC RBC Hgb Hct MCH RDW Plt Count Lymph % (Auto) [place] % (Auto) [place] # Baso # Seg Neutrophils % Seg Neuts % (Manual) Lymphocytes % (Manual) Monocytes % (Manual) Seg Neutrophils # Seg Neutrophils # Man Lymphocytes # (Manual) Monocytes # (Manual) Eosinophils # (Manual) Basophils # (Manual) PT INR APTT ABG pH ABG pO2 ABG HCO3 ABG O2 Saturation ABG Base Excess ABG Hemoglobin Oxyhemoglobin Sodium Potassium Chloride Carbon Dioxide BUN Creatinine Glucose POC Glucose 131 H 122 H 136 H Lactic Acid Calcium Ionized Calcium Phosphorus Magnesium Total Bilirubin AST ALT Alkaline Phosphatase Ammonia Total Creatine Kinase CK-MB (CK-2) CK-MB (CK-2) Rel Index Total Protein Albumin Urine WBC (Auto) Vancomycin Trough Salicylates Acetaminophen Plasma/Serum Alcohol Crossmatch 01/02/20 01/02/20 01/02/20 00:24 05:36 11:41 WBC RBC Hgb Hct MCH RDW Plt Count Lymph % (Auto) [place] % (Auto) [place] # Baso # Seg Neutrophils % Seg Neuts % (Manual) Lymphocytes % (Manual) Monocytes % (Manual) Seg Neutrophils # Seg Neutrophils # Man Lymphocytes # (Manual) Monocytes # (Manual) Eosinophils # (Manual) Basophils # (Manual) PT INR APTT ABG pH ABG pO2 ABG HCO3 ABG O2 Saturation ABG Base Excess ABG Hemoglobin Oxyhemoglobin Sodium Potassium Chloride Carbon Dioxide BUN Creatinine Glucose POC Glucose 119 H 109 H 125 H Lactic Acid Calcium Ionized Calcium Phosphorus Magnesium Total Bilirubin AST ALT Alkaline Phosphatase Ammonia Total Creatine Kinase CK-MB (CK-2) CK-MB (CK-2) Rel Index Total Protein Albumin Urine WBC (Auto) Vancomycin Trough Salicylates Acetaminophen Plasma/Serum Alcohol Crossmatch 01/02/20 01/03/20 01/03/20 17:49 05:29 12:13 WBC RBC Hgb Hct MCH RDW Plt Count Lymph % (Auto) [place] % (Auto) [place] # Baso # Seg Neutrophils % Seg Neuts % (Manual) Lymphocytes % (Manual) Monocytes % (Manual) Seg Neutrophils # Seg Neutrophils # Man Lymphocytes # (Manual) Monocytes # (Manual) Eosinophils # (Manual) Basophils # (Manual) PT INR APTT ABG pH ABG pO2 ABG HCO3 ABG O2 Saturation ABG Base Excess ABG Hemoglobin Oxyhemoglobin Sodium Potassium Chloride Carbon Dioxide BUN Creatinine Glucose POC Glucose 130 H 132 H 113 H Lactic Acid Calcium Ionized Calcium Phosphorus Magnesium Total Bilirubin AST ALT Alkaline Phosphatase Ammonia Total Creatine Kinase CK-MB (CK-2) CK-MB (CK-2) Rel Index Total Protein Albumin Urine WBC (Auto) Vancomycin Trough Salicylates Acetaminophen Plasma/Serum Alcohol Crossmatch 01/03/20 01/04/20 01/04/20 17:32 00:19 05:26 WBC RBC Hgb Hct MCH RDW Plt Count Lymph % (Auto) [place] % (Auto) [place] # Baso # Seg Neutrophils % Seg Neuts % (Manual) Lymphocytes % (Manual) Monocytes % (Manual) Seg Neutrophils # Seg Neutrophils # Man Lymphocytes # (Manual) Monocytes # (Manual) Eosinophils # (Manual) Basophils # (Manual) PT INR APTT ABG pH ABG pO2 ABG HCO3 ABG O2 Saturation ABG Base Excess ABG Hemoglobin Oxyhemoglobin Sodium Potassium Chloride Carbon Dioxide BUN Creatinine Glucose POC Glucose 127 H 141 H 129 H Lactic Acid Calcium Ionized Calcium Phosphorus Magnesium Total Bilirubin AST ALT Alkaline Phosphatase Ammonia Total Creatine Kinase CK-MB (CK-2) CK-MB (CK-2) Rel Index Total Protein Albumin Urine WBC (Auto) Vancomycin Trough Salicylates Acetaminophen Plasma/Serum Alcohol Crossmatch 01/04/20 01/04/20 01/05/20 11:39 17:29 05:22 WBC RBC Hgb Hct MCH RDW Plt Count Lymph % (Auto) [place] % (Auto) [place] # Baso # Seg Neutrophils % Seg Neuts % (Manual) Lymphocytes % (Manual) Monocytes % (Manual) Seg Neutrophils # Seg Neutrophils # Man Lymphocytes # (Manual) Monocytes # (Manual) Eosinophils # (Manual) Basophils # (Manual) PT INR APTT ABG pH ABG pO2 ABG HCO3 ABG O2 Saturation ABG Base Excess ABG Hemoglobin Oxyhemoglobin Sodium Potassium Chloride Carbon Dioxide BUN Creatinine Glucose POC Glucose 167 H 132 H 121 H Lactic Acid Calcium Ionized Calcium Phosphorus Magnesium Total Bilirubin AST ALT Alkaline Phosphatase Ammonia Total Creatine Kinase CK-MB (CK-2) CK-MB (CK-2) Rel Index Total Protein Albumin Urine WBC (Auto) Vancomycin Trough Salicylates Acetaminophen Plasma/Serum Alcohol Crossmatch 01/05/20 01/05/20 01/05/20 12:25 17:40 18:06 WBC RBC Hgb Hct MCH RDW Plt Count Lymph % (Auto) [place] % (Auto) [place] # Baso # Seg Neutrophils % Seg Neuts % (Manual) Lymphocytes % (Manual) Monocytes % (Manual) Seg Neutrophils # Seg Neutrophils # Man Lymphocytes # (Manual) Monocytes # (Manual) Eosinophils # (Manual) Basophils # (Manual) PT INR APTT ABG pH 7.472 H ABG pO2 99.2 H ABG HCO3 ABG O2 Saturation ABG Base Excess ABG Hemoglobin 7.8 L Oxyhemoglobin Sodium Potassium Chloride Carbon Dioxide BUN Creatinine Glucose POC Glucose 106 H 110 H Lactic Acid Calcium Ionized Calcium Phosphorus Magnesium Total Bilirubin AST ALT Alkaline Phosphatase Ammonia Total Creatine Kinase CK-MB (CK-2) CK-MB (CK-2) Rel Index Total Protein Albumin Urine WBC (Auto) Vancomycin Trough Salicylates Acetaminophen Plasma/Serum Alcohol Crossmatch 01/06/20 01/06/20 01/06/20 00:11 05:16 11:30 WBC RBC Hgb Hct MCH RDW Plt Count Lymph % (Auto) Bre[place] % (Auto) [place] # Baso # Seg Neutrophils % Seg Neuts % (Manual) Lymphocytes % (Manual) Monocytes % (Manual) Seg Neutrophils # Seg Neutrophils # Man Lymphocytes # (Manual) Monocytes # (Manual) Eosinophils # (Manual) Basophils # (Manual) PT INR APTT ABG pH ABG pO2 ABG HCO3 ABG O2 Saturation ABG Base Excess ABG Hemoglobin Oxyhemoglobin Sodium Potassium Chloride Carbon Dioxide BUN Creatinine Glucose POC Glucose 108 H 124 H 125 H Lactic Acid Calcium Ionized Calcium Phosphorus Magnesium Total Bilirubin AST ALT Alkaline Phosphatase Ammonia Total Creatine Kinase CK-MB (CK-2) CK-MB (CK-2) Rel Index Total Protein Albumin Urine WBC (Auto) Vancomycin Trough Salicylates Acetaminophen Plasma/Serum Alcohol Crossmatch 01/06/20 01/06/20 01/07/20 17:53 23:51 04:12 WBC 16.5 H RBC 3.29 L Hgb 9.3 L Hct 28.1 L MCH RDW 18.2 H Plt Count 526 H Lymph % (Auto) 8.4 L Bremer % (Auto) Bremer # 1.0 H Baso # Seg Neutrophils % 84.4 H Seg Neuts % (Manual) Lymphocytes % (Manual) Monocytes % (Manual) Seg Neutrophils # 13.9 H Seg Neutrophils # Man Lymphocytes # (Manual) Monocytes # (Manual) Eosinophils # (Manual) Basophils # (Manual) PT INR APTT ABG pH ABG pO2 ABG HCO3 ABG O2 Saturation ABG Base Excess ABG Hemoglobin Oxyhemoglobin Sodium Potassium Chloride Carbon Dioxide BUN Creatinine Glucose POC Glucose 166 H 128 H Lactic Acid Calcium Ionized Calcium Phosphorus Magnesium Total Bilirubin AST ALT Alkaline Phosphatase Ammonia Total Creatine Kinase CK-MB (CK-2) CK-MB (CK-2) Rel Index Total Protein Albumin Urine WBC (Auto) Vancomycin Trough Salicylates Acetaminophen Plasma/Serum Alcohol Crossmatch 01/07/20 01/07/20 01/07/20 04:12 04:45 11:51 WBC RBC Hgb Hct MCH RDW Plt Count Lymph % (Auto) [place] % (Auto) [place] # Baso # Seg Neutrophils % Seg Neuts % (Manual) Lymphocytes % (Manual) Monocytes % (Manual) Seg Neutrophils # Seg Neutrophils # Man Lymphocytes # (Manual) Monocytes # (Manual) Eosinophils # (Manual) Basophils # (Manual) PT INR APTT ABG pH ABG pO2 ABG HCO3 ABG O2 Saturation ABG Base Excess ABG Hemoglobin Oxyhemoglobin Sodium 136 L Potassium Chloride Carbon Dioxide 21 L BUN 44 H Creatinine 0.6 L Glucose 124 H POC Glucose 134 H 138 H Lactic Acid Calcium Ionized Calcium Phosphorus Magnesium Total Bilirubin AST ALT Alkaline Phosphatase Ammonia Total Creatine Kinase CK-MB (CK-2) CK-MB (CK-2) Rel Index Total Protein Albumin Urine WBC (Auto) Vancomycin Trough Salicylates Acetaminophen Plasma/Serum Alcohol Crossmatch 01/07/20 01/08/20 01/08/20 17:36 00:33 05:29 WBC RBC Hgb Hct MCH RDW Plt Count Lymph % (Auto) [place] % (Auto) [place] # Baso # Seg Neutrophils % Seg Neuts % (Manual) Lymphocytes % (Manual) Monocytes % (Manual) Seg Neutrophils # Seg Neutrophils # Man Lymphocytes # (Manual) Monocytes # (Manual) Eosinophils # (Manual) Basophils # (Manual) PT INR APTT ABG pH ABG pO2 ABG HCO3 ABG O2 Saturation ABG Base Excess ABG Hemoglobin Oxyhemoglobin Sodium Potassium Chloride Carbon Dioxide BUN Creatinine Glucose POC Glucose 128 H 119 H 124 H Lactic Acid Calcium Ionized Calcium Phosphorus Magnesium Total Bilirubin AST ALT Alkaline Phosphatase Ammonia Total Creatine Kinase CK-MB (CK-2) CK-MB (CK-2) Rel Index Total Protein Albumin Urine WBC (Auto) Vancomycin Trough Salicylates Acetaminophen Plasma/Serum Alcohol Crossmatch 01/08/20 01/08/20 01/08/20 12:51 20:25 23:22 WBC RBC Hgb Hct MCH RDW Plt Count Lymph % (Auto) [place] % (Auto) [place] # Baso # Seg Neutrophils % Seg Neuts % (Manual) Lymphocytes % (Manual) Monocytes % (Manual) Seg Neutrophils # Seg Neutrophils # Man Lymphocytes # (Manual) Monocytes # (Manual) Eosinophils # (Manual) Basophils # (Manual) PT INR APTT ABG pH ABG pO2 132.2 H ABG HCO3 ABG O2 Saturation ABG Base Excess ABG Hemoglobin Oxyhemoglobin Sodium Potassium Chloride Carbon Dioxide BUN Creatinine Glucose POC Glucose 128 H 127 H Lactic Acid Calcium Ionized Calcium Phosphorus Magnesium Total Bilirubin AST ALT Alkaline Phosphatase Ammonia Total Creatine Kinase CK-MB (CK-2) CK-MB (CK-2) Rel Index Total Protein Albumin Urine WBC (Auto) Vancomycin Trough Salicylates Acetaminophen Plasma/Serum Alcohol Crossmatch 01/09/20 01/09/20 01/09/20 05:48 08:51 11:29 WBC RBC Hgb Hct MCH RDW Plt Count Lymph % (Auto) Bremer % (Auto) Bremer # Baso # Seg Neutrophils % Seg Neuts % (Manual) Lymphocytes % (Manual) Monocytes % (Manual) Seg Neutrophils # Seg Neutrophils # Man Lymphocytes # (Manual) Monocytes # (Manual) Eosinophils # (Manual) Basophils # (Manual) PT INR APTT ABG pH ABG pO2 94.3 H ABG HCO3 ABG O2 Saturation ABG Base Excess ABG Hemoglobin 9.5 L Oxyhemoglobin Sodium Potassium Chloride Carbon Dioxide BUN Creatinine Glucose POC Glucose 120 H 112 H Lactic Acid Calcium Ionized Calcium Phosphorus Magnesium Total Bilirubin AST ALT Alkaline Phosphatase Ammonia Total Creatine Kinase CK-MB (CK-2) CK-MB (CK-2) Rel Index Total Protein Albumin Urine WBC (Auto) Vancomycin Trough Salicylates Acetaminophen Plasma/Serum Alcohol Crossmatch 0401/10/20 01/10/20 17:57 05:17 12:28 WBC RBC Hgb Hct MCH RDW Plt Count Lymph % (Auto) [place] % (Auto) Bre[place] # Baso # Seg Neutrophils % Seg Neuts % (Manual) Lymphocytes % (Manual) Monocytes % (Manual) Seg Neutrophils # Seg Neutrophils # Man Lymphocytes # (Manual) Monocytes # (Manual) Eosinophils # (Manual) Basophils # (Manual) PT INR APTT ABG pH ABG pO2 ABG HCO3 ABG O2 Saturation ABG Base Excess ABG Hemoglobin Oxyhemoglobin Sodium Potassium Chloride Carbon Dioxide BUN Creatinine Glucose POC Glucose 122 H 115 H 116 H Lactic Acid Calcium Ionized Calcium Phosphorus Magnesium Total Bilirubin AST ALT Alkaline Phosphatase Ammonia Total Creatine Kinase CK-MB (CK-2) CK-MB (CK-2) Rel Index Total Protein Albumin Urine WBC (Auto) Vancomycin Trough Salicylates Acetaminophen Plasma/Serum Alcohol Crossmatch 01/10/20 01/10/20 01/11/20 18:25 23:47 06:05 WBC RBC Hgb Hct MCH RDW Plt Count Lymph % (Auto) Bre[place] % (Auto) Bre[place] # Baso # Seg Neutrophils % Seg Neuts % (Manual) Lymphocytes % (Manual) Monocytes % (Manual) Seg Neutrophils # Seg Neutrophils # Man Lymphocytes # (Manual) Monocytes # (Manual) Eosinophils # (Manual) Basophils # (Manual) PT INR APTT ABG pH ABG pO2 ABG HCO3 ABG O2 Saturation ABG Base Excess ABG Hemoglobin Oxyhemoglobin Sodium Potassium Chloride Carbon Dioxide BUN Creatinine Glucose POC Glucose 123 H 115 H 151 H Lactic Acid Calcium Ionized Calcium Phosphorus Magnesium Total Bilirubin AST ALT Alkaline Phosphatase Ammonia Total Creatine Kinase CK-MB (CK-2) CK-MB (CK-2) Rel Index Total Protein Albumin Urine WBC (Auto) Vancomycin Trough Salicylates Acetaminophen Plasma/Serum Alcohol Crossmatch 01/11/20 01/11/20 01/11/20 07:00 07:00 12:27 WBC 11.8 H RBC 3.40 L Hgb 9.4 L Hct 29.3 L MCH RDW 18.1 H Plt Count 549 H Lymph % (Auto) Bremer % (Auto) 9.1 H Bremer # 1.1 H Baso # Seg Neutrophils % 73.3 H Seg Neuts % (Manual) Lymphocytes % (Manual) Monocytes % (Manual) Seg Neutrophils # 8.7 H Seg Neutrophils # Man Lymphocytes # (Manual) Monocytes # (Manual) Eosinophils # (Manual) Basophils # (Manual) PT INR APTT ABG pH ABG pO2 ABG HCO3 ABG O2 Saturation ABG Base Excess ABG Hemoglobin Oxyhemoglobin Sodium 134 L Potassium Chloride 97.7 L Carbon Dioxide 21 L BUN 38 H Creatinine 0.5 L Glucose 168 H POC Glucose 117 H Lactic Acid Calcium 10.5 H Ionized Calcium Phosphorus Magnesium Total Bilirubin AST ALT Alkaline Phosphatase Ammonia Total Creatine Kinase CK-MB (CK-2) CK-MB (CK-2) Rel Index Total Protein Albumin Urine WBC (Auto) Vancomycin Trough Salicylates Acetaminophen Plasma/Serum Alcohol Crossmatch 01/11/20 01/12/20 01/12/20 18:19 00:53 05:24 WBC RBC Hgb Hct MCH RDW Plt Count Lymph % (Auto) [place] % (Auto) Bre[place] # Baso # Seg Neutrophils % Seg Neuts % (Manual) Lymphocytes % (Manual) Monocytes % (Manual) Seg Neutrophils # Seg Neutrophils # Man Lymphocytes # (Manual) Monocytes # (Manual) Eosinophils # (Manual) Basophils # (Manual) PT INR APTT ABG pH ABG pO2 ABG HCO3 ABG O2 Saturation ABG Base Excess ABG Hemoglobin Oxyhemoglobin Sodium Potassium Chloride Carbon Dioxide BUN Creatinine Glucose POC Glucose 126 H 126 H 128 H Lactic Acid Calcium Ionized Calcium Phosphorus Magnesium Total Bilirubin AST ALT Alkaline Phosphatase Ammonia Total Creatine Kinase CK-MB (CK-2) CK-MB (CK-2) Rel Index Total Protein Albumin Urine WBC (Auto) Vancomycin Trough Salicylates Acetaminophen Plasma/Serum Alcohol Crossmatch 01/12/20 01/12/20 01/13/20 13:39 18:02 00:27 WBC RBC Hgb Hct MCH RDW Plt Count Lymph % (Auto) [place] % (Auto) [place] # Baso # Seg Neutrophils % Seg Neuts % (Manual) Lymphocytes % (Manual) Monocytes % (Manual) Seg Neutrophils # Seg Neutrophils # Man Lymphocytes # (Manual) Monocytes # (Manual) Eosinophils # (Manual) Basophils # (Manual) PT INR APTT ABG pH ABG pO2 ABG HCO3 ABG O2 Saturation ABG Base Excess ABG Hemoglobin Oxyhemoglobin Sodium Potassium Chloride Carbon Dioxide BUN Creatinine Glucose POC Glucose 146 H 125 H 131 H Lactic Acid Calcium Ionized Calcium Phosphorus Magnesium Total Bilirubin AST ALT Alkaline Phosphatase Ammonia Total Creatine Kinase CK-MB (CK-2) CK-MB (CK-2) Rel Index Total Protein Albumin Urine WBC (Auto) Vancomycin Trough Salicylates Acetaminophen Plasma/Serum Alcohol Crossmatch 01/13/20 01/13/20 01/13/20 05:44 11:54 17:18 WBC RBC Hgb Hct MCH RDW Plt Count Lymph % (Auto) [place] % (Auto) [place] # Baso # Seg Neutrophils % Seg Neuts % (Manual) Lymphocytes % (Manual) Monocytes % (Manual) Seg Neutrophils # Seg Neutrophils # Man Lymphocytes # (Manual) Monocytes # (Manual) Eosinophils # (Manual) Basophils # (Manual) PT INR APTT ABG pH ABG pO2 ABG HCO3 ABG O2 Saturation ABG Base Excess ABG Hemoglobin Oxyhemoglobin Sodium Potassium Chloride Carbon Dioxide BUN Creatinine Glucose POC Glucose 148 H 140 H 130 H Lactic Acid Calcium Ionized Calcium Phosphorus Magnesium Total Bilirubin AST ALT Alkaline Phosphatase Ammonia Total Creatine Kinase CK-MB (CK-2) CK-MB (CK-2) Rel Index Total Protein Albumin Urine WBC (Auto) Vancomycin Trough Salicylates Acetaminophen Plasma/Serum Alcohol Crossmatch 01/14/20 01/14/20 01/14/20 00:16 05:45 12:19 WBC RBC Hgb Hct MCH RDW Plt Count Lymph % (Auto) [place] % (Auto) [place] # Baso # Seg Neutrophils % Seg Neuts % (Manual) Lymphocytes % (Manual) Monocytes % (Manual) Seg Neutrophils # Seg Neutrophils # Man Lymphocytes # (Manual) Monocytes # (Manual) Eosinophils # (Manual) Basophils # (Manual) PT INR APTT ABG pH ABG pO2 ABG HCO3 ABG O2 Saturation ABG Base Excess ABG Hemoglobin Oxyhemoglobin Sodium Potassium Chloride Carbon Dioxide BUN Creatinine Glucose POC Glucose 125 H 146 H 147 H Lactic Acid Calcium Ionized Calcium Phosphorus Magnesium Total Bilirubin AST ALT Alkaline Phosphatase Ammonia Total Creatine Kinase CK-MB (CK-2) CK-MB (CK-2) Rel Index Total Protein Albumin Urine WBC (Auto) Vancomycin Trough Salicylates Acetaminophen Plasma/Serum Alcohol Crossmatch 01/14/20 01/14/20 01/15/20 18:10 23:54 05:14 WBC RBC Hgb Hct MCH RDW Plt Count Lymph % (Auto) [place] % (Auto) [place] # Baso # Seg Neutrophils % Seg Neuts % (Manual) Lymphocytes % (Manual) Monocytes % (Manual) Seg Neutrophils # Seg Neutrophils # Man Lymphocytes # (Manual) Monocytes # (Manual) Eosinophils # (Manual) Basophils # (Manual) PT INR APTT ABG pH ABG pO2 ABG HCO3 ABG O2 Saturation ABG Base Excess ABG Hemoglobin Oxyhemoglobin Sodium Potassium Chloride Carbon Dioxide BUN Creatinine Glucose POC Glucose 136 H 109 H 111 H Lactic Acid Calcium Ionized Calcium Phosphorus Magnesium Total Bilirubin AST ALT Alkaline Phosphatase Ammonia Total Creatine Kinase CK-MB (CK-2) CK-MB (CK-2) Rel Index Total Protein Albumin Urine WBC (Auto) Vancomycin Trough Salicylates Acetaminophen Plasma/Serum Alcohol Crossmatch 01/15/20 01/15/20 01/16/20 12:34 23:25 05:06 WBC RBC Hgb Hct MCH RDW Plt Count Lymph % (Auto) [place] % (Auto) [place] # Baso # Seg Neutrophils % Seg Neuts % (Manual) Lymphocytes % (Manual) Monocytes % (Manual) Seg Neutrophils # Seg Neutrophils # Man Lymphocytes # (Manual) Monocytes # (Manual) Eosinophils # (Manual) Basophils # (Manual) PT INR APTT ABG pH ABG pO2 ABG HCO3 ABG O2 Saturation ABG Base Excess ABG Hemoglobin Oxyhemoglobin Sodium Potassium Chloride Carbon Dioxide BUN Creatinine Glucose POC Glucose 131 H 120 H 121 H Lactic Acid Calcium Ionized Calcium Phosphorus Magnesium Total Bilirubin AST ALT Alkaline Phosphatase Ammonia Total Creatine Kinase CK-MB (CK-2) CK-MB (CK-2) Rel Index Total Protein Albumin Urine WBC (Auto) Vancomycin Trough Salicylates Acetaminophen Plasma/Serum Alcohol Crossmatch 01/16/20 01/16/20 01/17/20 12:15 23:46 05:32 WBC 13.6 H RBC 3.27 L Hgb 9.3 L Hct 28.5 L MCH RDW 17.0 H Plt Count 490 H Lymph % (Auto) 13.1 L Bremer % (Auto) Bremer # 1.0 H Baso # Seg Neutrophils % 77.5 H Seg Neuts % (Manual) Lymphocytes % (Manual) Monocytes % (Manual) Seg Neutrophils # 10.5 H Seg Neutrophils # Man Lymphocytes # (Manual) Monocytes # (Manual) Eosinophils # (Manual) Basophils # (Manual) PT INR APTT ABG pH ABG pO2 ABG HCO3 ABG O2 Saturation ABG Base Excess ABG Hemoglobin Oxyhemoglobin Sodium Potassium Chloride Carbon Dioxide BUN Creatinine Glucose POC Glucose 152 H 107 H Lactic Acid Calcium Ionized Calcium Phosphorus Magnesium Total Bilirubin AST ALT Alkaline Phosphatase Ammonia Total Creatine Kinase CK-MB (CK-2) CK-MB (CK-2) Rel Index Total Protein Albumin Urine WBC (Auto) Vancomycin Trough Salicylates Acetaminophen Plasma/Serum Alcohol Crossmatch 01/17/20 01/17/20 01/17/20 06:47 12:16 17:21 WBC RBC Hgb Hct MCH RDW Plt Count Lymph % (Auto) [place] % (Auto) [place] # Baso # Seg Neutrophils % Seg Neuts % (Manual) Lymphocytes % (Manual) Monocytes % (Manual) Seg Neutrophils # Seg Neutrophils # Man Lymphocytes # (Manual) Monocytes # (Manual) Eosinophils # (Manual) Basophils # (Manual) PT INR APTT ABG pH ABG pO2 ABG HCO3 ABG O2 Saturation ABG Base Excess ABG Hemoglobin Oxyhemoglobin Sodium Potassium Chloride Carbon Dioxide BUN Creatinine Glucose POC Glucose 112 H 145 H 150 H Lactic Acid Calcium Ionized Calcium Phosphorus Magnesium Total Bilirubin AST ALT Alkaline Phosphatase Ammonia Total Creatine Kinase CK-MB (CK-2) CK-MB (CK-2) Rel Index Total Protein Albumin Urine WBC (Auto) Vancomycin Trough Salicylates Acetaminophen Plasma/Serum Alcohol Crossmatch 01/17/20 01/18/20 01/18/20 23:34 05:47 12:43 WBC RBC Hgb Hct MCH RDW Plt Count Lymph % (Auto) [place] % (Auto) [place] # Baso # Seg Neutrophils % Seg Neuts % (Manual) Lymphocytes % (Manual) Monocytes % (Manual) Seg Neutrophils # Seg Neutrophils # Man Lymphocytes # (Manual) Monocytes # (Manual) Eosinophils # (Manual) Basophils # (Manual) PT INR APTT ABG pH ABG pO2 ABG HCO3 ABG O2 Saturation ABG Base Excess ABG Hemoglobin Oxyhemoglobin Sodium Potassium Chloride Carbon Dioxide BUN Creatinine Glucose POC Glucose 160 H 130 H 124 H Lactic Acid Calcium Ionized Calcium Phosphorus Magnesium Total Bilirubin AST ALT Alkaline Phosphatase Ammonia Total Creatine Kinase CK-MB (CK-2) CK-MB (CK-2) Rel Index Total Protein Albumin Urine WBC (Auto) Vancomycin Trough Salicylates Acetaminophen Plasma/Serum Alcohol Crossmatch 01/18/20 01/19/20 01/19/20 18:26 00:14 06:24 WBC RBC Hgb Hct MCH RDW Plt Count Lymph % (Auto) [place] % (Auto) [place] # Baso # Seg Neutrophils % Seg Neuts % (Manual) Lymphocytes % (Manual) Monocytes % (Manual) Seg Neutrophils # Seg Neutrophils # Man Lymphocytes # (Manual) Monocytes # (Manual) Eosinophils # (Manual) Basophils # (Manual) PT INR APTT ABG pH ABG pO2 ABG HCO3 ABG O2 Saturation ABG Base Excess ABG Hemoglobin Oxyhemoglobin Sodium Potassium Chloride Carbon Dioxide BUN Creatinine Glucose POC Glucose 119 H 114 H 144 H Lactic Acid Calcium Ionized Calcium Phosphorus Magnesium Total Bilirubin AST ALT Alkaline Phosphatase Ammonia Total Creatine Kinase CK-MB (CK-2) CK-MB (CK-2) Rel Index Total Protein Albumin Urine WBC (Auto) Vancomycin Trough Salicylates Acetaminophen Plasma/Serum Alcohol Crossmatch 01/19/20 01/19/20 01/20/20 12:24 17:50 12:06 WBC RBC Hgb Hct MCH RDW Plt Count Lymph % (Auto) [place] % (Auto) [place] # Baso # Seg Neutrophils % Seg Neuts % (Manual) Lymphocytes % (Manual) Monocytes % (Manual) Seg Neutrophils # Seg Neutrophils # Man Lymphocytes # (Manual) Monocytes # (Manual) Eosinophils # (Manual) Basophils # (Manual) PT INR APTT ABG pH ABG pO2 ABG HCO3 ABG O2 Saturation ABG Base Excess ABG Hemoglobin Oxyhemoglobin Sodium Potassium Chloride Carbon Dioxide BUN Creatinine Glucose POC Glucose 132 H 144 H 135 H Lactic Acid Calcium Ionized Calcium Phosphorus Magnesium Total Bilirubin AST ALT Alkaline Phosphatase Ammonia Total Creatine Kinase CK-MB (CK-2) CK-MB (CK-2) Rel Index Total Protein Albumin Urine WBC (Auto) Vancomycin Trough Salicylates Acetaminophen Plasma/Serum Alcohol Crossmatch 01/21/20 01/21/20 01/21/20 05:46 13:02 23:49 WBC RBC Hgb Hct MCH RDW Plt Count Lymph % (Auto) [place] % (Auto) [place] # Baso # Seg Neutrophils % Seg Neuts % (Manual) Lymphocytes % (Manual) Monocytes % (Manual) Seg Neutrophils # Seg Neutrophils # Man Lymphocytes # (Manual) Monocytes # (Manual) Eosinophils # (Manual) Basophils # (Manual) PT INR APTT ABG pH ABG pO2 ABG HCO3 ABG O2 Saturation ABG Base Excess ABG Hemoglobin Oxyhemoglobin Sodium Potassium Chloride Carbon Dioxide BUN Creatinine Glucose POC Glucose 114 H 136 H 120 H Lactic Acid Calcium Ionized Calcium Phosphorus Magnesium Total Bilirubin AST ALT Alkaline Phosphatase Ammonia Total Creatine Kinase CK-MB (CK-2) CK-MB (CK-2) Rel Index Total Protein Albumin Urine WBC (Auto) Vancomycin Trough Salicylates Acetaminophen Plasma/Serum Alcohol Crossmatch 01/22/20 01/22/20 01/22/20 05:41 11:44 16:31 WBC RBC Hgb Hct MCH RDW Plt Count Lymph % (Auto) [place] % (Auto) [place] # Baso # Seg Neutrophils % Seg Neuts % (Manual) Lymphocytes % (Manual) Monocytes % (Manual) Seg Neutrophils # Seg Neutrophils # Man Lymphocytes # (Manual) Monocytes # (Manual) Eosinophils # (Manual) Basophils # (Manual) PT INR APTT ABG pH ABG pO2 ABG HCO3 ABG O2 Saturation ABG Base Excess ABG Hemoglobin Oxyhemoglobin Sodium Potassium Chloride Carbon Dioxide BUN Creatinine Glucose POC Glucose 124 H 173 H 111 H Lactic Acid Calcium Ionized Calcium Phosphorus Magnesium Total Bilirubin AST ALT Alkaline Phosphatase Ammonia Total Creatine Kinase CK-MB (CK-2) CK-MB (CK-2) Rel Index Total Protein Albumin Urine WBC (Auto) Vancomycin Trough Salicylates Acetaminophen Plasma/Serum Alcohol Crossmatch 01/22/20 01/23/20 01/23/20 23:25 05:15 12:15 WBC RBC Hgb Hct MCH RDW Plt Count Lymph % (Auto) [place] % (Auto) [place] # Baso # Seg Neutrophils % Seg Neuts % (Manual) Lymphocytes % (Manual) Monocytes % (Manual) Seg Neutrophils # Seg Neutrophils # Man Lymphocytes # (Manual) Monocytes # (Manual) Eosinophils # (Manual) Basophils # (Manual) PT INR APTT ABG pH ABG pO2 ABG HCO3 ABG O2 Saturation ABG Base Excess ABG Hemoglobin Oxyhemoglobin Sodium Potassium Chloride Carbon Dioxide BUN Creatinine Glucose POC Glucose 134 H 117 H 129 H Lactic Acid Calcium Ionized Calcium Phosphorus Magnesium Total Bilirubin AST ALT Alkaline Phosphatase Ammonia Total Creatine Kinase CK-MB (CK-2) CK-MB (CK-2) Rel Index Total Protein Albumin Urine WBC (Auto) Vancomycin Trough Salicylates Acetaminophen Plasma/Serum Alcohol Crossmatch 01/23/20 01/23/20 01/23/20 16:58 21:17 23:47 WBC RBC Hgb Hct MCH RDW Plt Count Lymph % (Auto) [place] % (Auto) [place] # Baso # Seg Neutrophils % Seg Neuts % (Manual) Lymphocytes % (Manual) Monocytes % (Manual) Seg Neutrophils # Seg Neutrophils # Man Lymphocytes # (Manual) Monocytes # (Manual) Eosinophils # (Manual) Basophils # (Manual) PT INR APTT ABG pH ABG pO2 ABG HCO3 ABG O2 Saturation ABG Base Excess ABG Hemoglobin Oxyhemoglobin Sodium Potassium Chloride Carbon Dioxide BUN Creatinine Glucose POC Glucose 156 H 185 H 156 H Lactic Acid Calcium Ionized Calcium Phosphorus Magnesium Total Bilirubin AST ALT Alkaline Phosphatase Ammonia Total Creatine Kinase CK-MB (CK-2) CK-MB (CK-2) Rel Index Total Protein Albumin Urine WBC (Auto) Vancomycin Trough Salicylates Acetaminophen Plasma/Serum Alcohol Crossmatch 01/24/20 01/24/20 01/24/20 04:47 04:47 05:59 WBC 17.8 H RBC 3.60 L Hgb Hct MCH RDW 16.2 H Plt Count 688 H Lymph % (Auto) 11.8 L Bre[place] % (Auto) 7.5 H Bremer # 1.3 H Baso # Seg Neutrophils % 79.9 H Seg Neuts % (Manual) Lymphocytes % (Manual) Monocytes % (Manual) Seg Neutrophils # 14.2 H Seg Neutrophils # Man Lymphocytes # (Manual) Monocytes # (Manual) Eosinophils # (Manual) Basophils # (Manual) PT INR APTT ABG pH ABG pO2 ABG HCO3 ABG O2 Saturation ABG Base Excess ABG Hemoglobin Oxyhemoglobin Sodium 131 L Potassium Chloride 91.2 L Carbon Dioxide BUN 22 H Creatinine 0.3 L Glucose 123 H POC Glucose 147 H Lactic Acid Calcium 10.9 H Ionized Calcium Phosphorus Magnesium Total Bilirubin AST ALT Alkaline Phosphatase Ammonia Total Creatine Kinase CK-MB (CK-2) CK-MB (CK-2) Rel Index Total Protein Albumin Urine WBC (Auto) Vancomycin Trough Salicylates Acetaminophen Plasma/Serum Alcohol Crossmatch 01/24/20 01/24/20 01/25/20 11:47 16:45 00:18 WBC RBC Hgb Hct MCH RDW Plt Count Lymph % (Auto) [place] % (Auto) [place] # Baso # Seg Neutrophils % Seg Neuts % (Manual) Lymphocytes % (Manual) Monocytes % (Manual) Seg Neutrophils # Seg Neutrophils # Man Lymphocytes # (Manual) Monocytes # (Manual) Eosinophils # (Manual) Basophils # (Manual) PT INR APTT ABG pH ABG pO2 ABG HCO3 ABG O2 Saturation ABG Base Excess ABG Hemoglobin Oxyhemoglobin Sodium Potassium Chloride Carbon Dioxide BUN Creatinine Glucose POC Glucose 114 H 108 H 119 H Lactic Acid Calcium Ionized Calcium Phosphorus Magnesium Total Bilirubin AST ALT Alkaline Phosphatase Ammonia Total Creatine Kinase CK-MB (CK-2) CK-MB (CK-2) Rel Index Total Protein Albumin Urine WBC (Auto) Vancomycin Trough Salicylates Acetaminophen Plasma/Serum Alcohol Crossmatch 01/25/20 01/25/20 01/25/20 07:18 11:58 16:56 WBC RBC Hgb Hct MCH RDW Plt Count Lymph % (Auto) [place] % (Auto) [place] # Baso # Seg Neutrophils % Seg Neuts % (Manual) Lymphocytes % (Manual) Monocytes % (Manual) Seg Neutrophils # Seg Neutrophils # Man Lymphocytes # (Manual) Monocytes # (Manual) Eosinophils # (Manual) Basophils # (Manual) PT INR APTT ABG pH ABG pO2 ABG HCO3 ABG O2 Saturation ABG Base Excess ABG Hemoglobin Oxyhemoglobin Sodium Potassium Chloride Carbon Dioxide BUN Creatinine Glucose POC Glucose 136 H 136 H 147 H Lactic Acid Calcium Ionized Calcium Phosphorus Magnesium Total Bilirubin AST ALT Alkaline Phosphatase Ammonia Total Creatine Kinase CK-MB (CK-2) CK-MB (CK-2) Rel Index Total Protein Albumin Urine WBC (Auto) Vancomycin Trough Salicylates Acetaminophen Plasma/Serum Alcohol Crossmatch 01/26/20 01/26/20 01/26/20 00:29 05:59 05:59 WBC 12.8 H RBC Hgb Hct MCH RDW 16.4 H Plt Count 743 H Lymph % (Auto) [place] % (Auto) Bremer # 0.9 H Baso # Seg Neutrophils % 76.2 H Seg Neuts % (Manual) Lymphocytes % (Manual) Monocytes % (Manual) Seg Neutrophils # 9.8 H Seg Neutrophils # Man Lymphocytes # (Manual) Monocytes # (Manual) Eosinophils # (Manual) Basophils # (Manual) PT INR APTT ABG pH ABG pO2 ABG HCO3 ABG O2 Saturation ABG Base Excess ABG Hemoglobin Oxyhemoglobin Sodium 132 L Potassium Chloride 90.9 L Carbon Dioxide BUN 23 H Creatinine 0.4 L Glucose 122 H POC Glucose 107 H Lactic Acid Calcium 11.0 H Ionized Calcium Phosphorus Magnesium Total Bilirubin AST ALT Alkaline Phosphatase Ammonia Total Creatine Kinase CK-MB (CK-2) CK-MB (CK-2) Rel Index Total Protein Albumin Urine WBC (Auto) Vancomycin Trough Salicylates Acetaminophen Plasma/Serum Alcohol Crossmatch 01/26/20 01/26/20 01/26/20 06:27 12:06 16:49 WBC RBC Hgb Hct MCH RDW Plt Count Lymph % (Auto) [place] % (Auto) [place] # Baso # Seg Neutrophils % Seg Neuts % (Manual) Lymphocytes % (Manual) Monocytes % (Manual) Seg Neutrophils # Seg Neutrophils # Man Lymphocytes # (Manual) Monocytes # (Manual) Eosinophils # (Manual) Basophils # (Manual) PT INR APTT ABG pH ABG pO2 ABG HCO3 ABG O2 Saturation ABG Base Excess ABG Hemoglobin Oxyhemoglobin Sodium Potassium Chloride Carbon Dioxide BUN Creatinine Glucose POC Glucose 132 H 132 H 110 H Lactic Acid Calcium Ionized Calcium Phosphorus Magnesium Total Bilirubin AST ALT Alkaline Phosphatase Ammonia Total Creatine Kinase CK-MB (CK-2) CK-MB (CK-2) Rel Index Total Protein Albumin Urine WBC (Auto) Vancomycin Trough Salicylates Acetaminophen Plasma/Serum Alcohol Crossmatch 01/27/20 01/27/20 01/27/20 00:08 11:49 16:24 WBC RBC Hgb Hct MCH RDW Plt Count Lymph % (Auto) [place] % (Auto) [place] # Baso # Seg Neutrophils % Seg Neuts % (Manual) Lymphocytes % (Manual) Monocytes % (Manual) Seg Neutrophils # Seg Neutrophils # Man Lymphocytes # (Manual) Monocytes # (Manual) Eosinophils # (Manual) Basophils # (Manual) PT INR APTT ABG pH ABG pO2 ABG HCO3 ABG O2 Saturation ABG Base Excess ABG Hemoglobin Oxyhemoglobin Sodium Potassium Chloride Carbon Dioxide BUN Creatinine Glucose POC Glucose 107 H 119 H 129 H Lactic Acid Calcium Ionized Calcium Phosphorus Magnesium Total Bilirubin AST ALT Alkaline Phosphatase Ammonia Total Creatine Kinase CK-MB (CK-2) CK-MB (CK-2) Rel Index Total Protein Albumin Urine WBC (Auto) Vancomycin Trough Salicylates Acetaminophen Plasma/Serum Alcohol Crossmatch 01/27/20 01/28/20 01/28/20 18:28 01:00 06:22 WBC RBC Hgb Hct MCH RDW Plt Count Lymph % (Auto) [place] % (Auto) [place] # Baso # Seg Neutrophils % Seg Neuts % (Manual) Lymphocytes % (Manual) Monocytes % (Manual) Seg Neutrophils # Seg Neutrophils # Man Lymphocytes # (Manual) Monocytes # (Manual) Eosinophils # (Manual) Basophils # (Manual) PT INR APTT ABG pH ABG pO2 ABG HCO3 ABG O2 Saturation ABG Base Excess ABG Hemoglobin Oxyhemoglobin Sodium Potassium Chloride Carbon Dioxide BUN Creatinine Glucose POC Glucose 126 H 121 H 114 H Lactic Acid Calcium Ionized Calcium Phosphorus Magnesium Total Bilirubin AST ALT Alkaline Phosphatase Ammonia Total Creatine Kinase CK-MB (CK-2) CK-MB (CK-2) Rel Index Total Protein Albumin Urine WBC (Auto) Vancomycin Trough Salicylates Acetaminophen Plasma/Serum Alcohol Crossmatch 01/28/20 01/28/20 01/29/20 11:47 18:00 00:05 WBC RBC Hgb Hct MCH RDW Plt Count Lymph % (Auto) [place] % (Auto) [place] # Baso # Seg Neutrophils % Seg Neuts % (Manual) Lymphocytes % (Manual) Monocytes % (Manual) Seg Neutrophils # Seg Neutrophils # Man Lymphocytes # (Manual) Monocytes # (Manual) Eosinophils # (Manual) Basophils # (Manual) PT INR APTT ABG pH ABG pO2 ABG HCO3 ABG O2 Saturation ABG Base Excess ABG Hemoglobin Oxyhemoglobin Sodium Potassium Chloride Carbon Dioxide BUN Creatinine Glucose POC Glucose 106 H 117 H 127 H Lactic Acid Calcium Ionized Calcium Phosphorus Magnesium Total Bilirubin AST ALT Alkaline Phosphatase Ammonia Total Creatine Kinase CK-MB (CK-2) CK-MB (CK-2) Rel Index Total Protein Albumin Urine WBC (Auto) Vancomycin Trough Salicylates Acetaminophen Plasma/Serum Alcohol Crossmatch 01/29/20 01/29/20 01/29/20 06:04 11:40 16:38 WBC RBC Hgb Hct MCH RDW Plt Count Lymph % (Auto) [place] % (Auto) [place] # Baso # Seg Neutrophils % Seg Neuts % (Manual) Lymphocytes % (Manual) Monocytes % (Manual) Seg Neutrophils # Seg Neutrophils # Man Lymphocytes # (Manual) Monocytes # (Manual) Eosinophils # (Manual) Basophils # (Manual) PT INR APTT ABG pH ABG pO2 ABG HCO3 ABG O2 Saturation ABG Base Excess ABG Hemoglobin Oxyhemoglobin Sodium Potassium Chloride Carbon Dioxide BUN Creatinine Glucose POC Glucose 147 H 139 H 143 H Lactic Acid Calcium Ionized Calcium Phosphorus Magnesium Total Bilirubin AST ALT Alkaline Phosphatase Ammonia Total Creatine Kinase CK-MB (CK-2) CK-MB (CK-2) Rel Index Total Protein Albumin Urine WBC (Auto) Vancomycin Trough Salicylates Acetaminophen Plasma/Serum Alcohol Crossmatch 01/29/20 01/30/20 01/30/20 23:46 06:43 12:07 WBC RBC Hgb Hct MCH RDW Plt Count Lymph % (Auto) [place] % (Auto) [place] # Baso # Seg Neutrophils % Seg Neuts % (Manual) Lymphocytes % (Manual) Monocytes % (Manual) Seg Neutrophils # Seg Neutrophils # Man Lymphocytes # (Manual) Monocytes # (Manual) Eosinophils # (Manual) Basophils # (Manual) PT INR APTT ABG pH ABG pO2 ABG HCO3 ABG O2 Saturation ABG Base Excess ABG Hemoglobin Oxyhemoglobin Sodium Potassium Chloride Carbon Dioxide BUN Creatinine Glucose POC Glucose 122 H 122 H 134 H Lactic Acid Calcium Ionized Calcium Phosphorus Magnesium Total Bilirubin AST ALT Alkaline Phosphatase Ammonia Total Creatine Kinase CK-MB (CK-2) CK-MB (CK-2) Rel Index Total Protein Albumin Urine WBC (Auto) Vancomycin Trough Salicylates Acetaminophen Plasma/Serum Alcohol Crossmatch 01/30/20 01/31/20 01/31/20 17:59 00:52 05:54 WBC RBC Hgb Hct MCH RDW Plt Count Lymph % (Auto) Bre[place] % (Auto) Bre[place] # Baso # Seg Neutrophils % Seg Neuts % (Manual) Lymphocytes % (Manual) Monocytes % (Manual) Seg Neutrophils # Seg Neutrophils # Man Lymphocytes # (Manual) Monocytes # (Manual) Eosinophils # (Manual) Basophils # (Manual) PT INR APTT ABG pH ABG pO2 ABG HCO3 ABG O2 Saturation ABG Base Excess ABG Hemoglobin Oxyhemoglobin Sodium Potassium Chloride Carbon Dioxide BUN Creatinine Glucose POC Glucose 116 H 127 H 127 H Lactic Acid Calcium Ionized Calcium Phosphorus Magnesium Total Bilirubin AST ALT Alkaline Phosphatase Ammonia Total Creatine Kinase CK-MB (CK-2) CK-MB (CK-2) Rel Index Total Protein Albumin Urine WBC (Auto) Vancomycin Trough Salicylates Acetaminophen Plasma/Serum Alcohol Crossmatch 01/31/20 02/01/20 02/01/20 12:20 00:48 12:21 WBC RBC Hgb Hct MCH RDW Plt Count Lymph % (Auto) [place] % (Auto) [place] # Baso # Seg Neutrophils % Seg Neuts % (Manual) Lymphocytes % (Manual) Monocytes % (Manual) Seg Neutrophils # Seg Neutrophils # Man Lymphocytes # (Manual) Monocytes # (Manual) Eosinophils # (Manual) Basophils # (Manual) PT INR APTT ABG pH ABG pO2 ABG HCO3 ABG O2 Saturation ABG Base Excess ABG Hemoglobin Oxyhemoglobin Sodium Potassium Chloride Carbon Dioxide BUN Creatinine Glucose POC Glucose 126 H 154 H 123 H Lactic Acid Calcium Ionized Calcium Phosphorus Magnesium Total Bilirubin AST ALT Alkaline Phosphatase Ammonia Total Creatine Kinase CK-MB (CK-2) CK-MB (CK-2) Rel Index Total Protein Albumin Urine WBC (Auto) Vancomycin Trough Salicylates Acetaminophen Plasma/Serum Alcohol Crossmatch 02/01/20 02/02/20 02/02/20 23:58 06:08 11:50 WBC RBC Hgb Hct MCH RDW Plt Count Lymph % (Auto) [place] % (Auto) [place] # Baso # Seg Neutrophils % Seg Neuts % (Manual) Lymphocytes % (Manual) Monocytes % (Manual) Seg Neutrophils # Seg Neutrophils # Man Lymphocytes # (Manual) Monocytes # (Manual) Eosinophils # (Manual) Basophils # (Manual) PT INR APTT ABG pH ABG pO2 ABG HCO3 ABG O2 Saturation ABG Base Excess ABG Hemoglobin Oxyhemoglobin Sodium Potassium Chloride Carbon Dioxide BUN Creatinine Glucose POC Glucose 125 H 144 H 131 H Lactic Acid Calcium Ionized Calcium Phosphorus Magnesium Total Bilirubin AST ALT Alkaline Phosphatase Ammonia Total Creatine Kinase CK-MB (CK-2) CK-MB (CK-2) Rel Index Total Protein Albumin Urine WBC (Auto) Vancomycin Trough Salicylates Acetaminophen Plasma/Serum Alcohol Crossmatch 02/02/20 02/03/20 02/03/20 17:53 00:14 05:47 WBC RBC Hgb Hct MCH RDW Plt Count Lymph % (Auto) [place] % (Auto) [place] # Baso # Seg Neutrophils % Seg Neuts % (Manual) Lymphocytes % (Manual) Monocytes % (Manual) Seg Neutrophils # Seg Neutrophils # Man Lymphocytes # (Manual) Monocytes # (Manual) Eosinophils # (Manual) Basophils # (Manual) PT INR APTT ABG pH ABG pO2 ABG HCO3 ABG O2 Saturation ABG Base Excess ABG Hemoglobin Oxyhemoglobin Sodium Potassium Chloride Carbon Dioxide BUN Creatinine Glucose POC Glucose 108 H 122 H 118 H Lactic Acid Calcium Ionized Calcium Phosphorus Magnesium Total Bilirubin AST ALT Alkaline Phosphatase Ammonia Total Creatine Kinase CK-MB (CK-2) CK-MB (CK-2) Rel Index Total Protein Albumin Urine WBC (Auto) Vancomycin Trough Salicylates Acetaminophen Plasma/Serum Alcohol Crossmatch 02/03/20 02/03/20 02/03/20 05:59 05:59 11:49 WBC RBC 3.48 L Hgb Hct 29.9 L MCH RDW 16.2 H Plt Count 707 H Lymph % (Auto) Bre[place] % (Auto) 9.3 H Bremer # 0.9 H Baso # Seg Neutrophils % Seg Neuts % (Manual) Lymphocytes % (Manual) Monocytes % (Manual) Seg Neutrophils # Seg Neutrophils # Man Lymphocytes # (Manual) Monocytes # (Manual) Eosinophils # (Manual) Basophils # (Manual) PT INR APTT ABG pH ABG pO2 ABG HCO3 ABG O2 Saturation ABG Base Excess ABG Hemoglobin Oxyhemoglobin Sodium 136 L Potassium Chloride 93.4 L Carbon Dioxide BUN 20 H Creatinine 0.5 L Glucose 101 H POC Glucose 133 H Lactic Acid Calcium 10.8 H Ionized Calcium Phosphorus Magnesium Total Bilirubin AST ALT Alkaline Phosphatase Ammonia Total Creatine Kinase CK-MB (CK-2) CK-MB (CK-2) Rel Index Total Protein Albumin Urine WBC (Auto) Vancomycin Trough Salicylates Acetaminophen Plasma/Serum Alcohol Crossmatch 02/03/20 02/04/20 02/04/20 23:19 05:37 23:56 WBC RBC Hgb Hct MCH RDW Plt Count Lymph % (Auto) [place] % (Auto) [place] # Baso # Seg Neutrophils % Seg Neuts % (Manual) Lymphocytes % (Manual) Monocytes % (Manual) Seg Neutrophils # Seg Neutrophils # Man Lymphocytes # (Manual) Monocytes # (Manual) Eosinophils # (Manual) Basophils # (Manual) PT INR APTT ABG pH ABG pO2 ABG HCO3 ABG O2 Saturation ABG Base Excess ABG Hemoglobin Oxyhemoglobin Sodium Potassium Chloride Carbon Dioxide BUN Creatinine Glucose POC Glucose 135 H 108 H 158 H Lactic Acid Calcium Ionized Calcium Phosphorus Magnesium Total Bilirubin AST ALT Alkaline Phosphatase Ammonia Total Creatine Kinase CK-MB (CK-2) CK-MB (CK-2) Rel Index Total Protein Albumin Urine WBC (Auto) Vancomycin Trough Salicylates Acetaminophen Plasma/Serum Alcohol Crossmatch 02/05/20 02/05/20 02/06/20 05:33 23:24 05:50 WBC RBC Hgb Hct MCH RDW Plt Count Lymph % (Auto) [place] % (Auto) [place] # Baso # Seg Neutrophils % Seg Neuts % (Manual) Lymphocytes % (Manual) Monocytes % (Manual) Seg Neutrophils # Seg Neutrophils # Man Lymphocytes # (Manual) Monocytes # (Manual) Eosinophils # (Manual) Basophils # (Manual) PT INR APTT ABG pH ABG pO2 ABG HCO3 ABG O2 Saturation ABG Base Excess ABG Hemoglobin Oxyhemoglobin Sodium Potassium Chloride Carbon Dioxide BUN Creatinine Glucose POC Glucose 152 H 158 H 110 H Lactic Acid Calcium Ionized Calcium Phosphorus Magnesium Total Bilirubin AST ALT Alkaline Phosphatase Ammonia Total Creatine Kinase CK-MB (CK-2) CK-MB (CK-2) Rel Index Total Protein Albumin Urine WBC (Auto) Vancomycin Trough Salicylates Acetaminophen Plasma/Serum Alcohol Crossmatch 02/06/20 02/07/20 02/07/20 16:03 00:13 05:27 WBC RBC Hgb Hct MCH RDW Plt Count Lymph % (Auto) [place] % (Auto) [place] # Baso # Seg Neutrophils % Seg Neuts % (Manual) Lymphocytes % (Manual) Monocytes % (Manual) Seg Neutrophils # Seg Neutrophils # Man Lymphocytes # (Manual) Monocytes # (Manual) Eosinophils # (Manual) Basophils # (Manual) PT INR APTT ABG pH ABG pO2 ABG HCO3 ABG O2 Saturation ABG Base Excess ABG Hemoglobin Oxyhemoglobin Sodium Potassium Chloride Carbon Dioxide BUN Creatinine Glucose POC Glucose 130 H 115 H 115 H Lactic Acid Calcium Ionized Calcium Phosphorus Magnesium Total Bilirubin AST ALT Alkaline Phosphatase Ammonia Total Creatine Kinase CK-MB (CK-2) CK-MB (CK-2) Rel Index Total Protein Albumin Urine WBC (Auto) Vancomycin Trough Salicylates Acetaminophen Plasma/Serum Alcohol Crossmatch 02/07/20 02/07/20 02/08/20 11:42 17:23 00:37 WBC RBC Hgb Hct MCH RDW Plt Count Lymph % (Auto) [place] % (Auto) [place] # Baso # Seg Neutrophils % Seg Neuts % (Manual) Lymphocytes % (Manual) Monocytes % (Manual) Seg Neutrophils # Seg Neutrophils # Man Lymphocytes # (Manual) Monocytes # (Manual) Eosinophils # (Manual) Basophils # (Manual) PT INR APTT ABG pH ABG pO2 ABG HCO3 ABG O2 Saturation ABG Base Excess ABG Hemoglobin Oxyhemoglobin Sodium Potassium Chloride Carbon Dioxide BUN Creatinine Glucose POC Glucose 113 H 114 H 136 H Lactic Acid Calcium Ionized Calcium Phosphorus Magnesium Total Bilirubin AST ALT Alkaline Phosphatase Ammonia Total Creatine Kinase CK-MB (CK-2) CK-MB (CK-2) Rel Index Total Protein Albumin Urine WBC (Auto) Vancomycin Trough Salicylates Acetaminophen Plasma/Serum Alcohol Crossmatch 02/08/20 02/08/20 02/08/20 08:52 11:42 17:02 WBC RBC Hgb Hct MCH RDW Plt Count Lymph % (Auto) [place] % (Auto) [place] # Baso # Seg Neutrophils % Seg Neuts % (Manual) Lymphocytes % (Manual) Monocytes % (Manual) Seg Neutrophils # Seg Neutrophils # Man Lymphocytes # (Manual) Monocytes # (Manual) Eosinophils # (Manual) Basophils # (Manual) PT INR APTT ABG pH ABG pO2 ABG HCO3 ABG O2 Saturation ABG Base Excess ABG Hemoglobin Oxyhemoglobin Sodium 136 L Potassium Chloride 95.7 L Carbon Dioxide BUN 21 H Creatinine 0.4 L Glucose POC Glucose 128 H 145 H Lactic Acid Calcium 10.4 H Ionized Calcium Phosphorus Magnesium Total Bilirubin AST ALT Alkaline Phosphatase Ammonia Total Creatine Kinase CK-MB (CK-2) CK-MB (CK-2) Rel Index Total Protein Albumin Urine WBC (Auto) Vancomycin Trough Salicylates Acetaminophen Plasma/Serum Alcohol Crossmatch 02/09/20 02/09/20 02/09/20 01:05 11:52 16:19 WBC RBC Hgb Hct MCH RDW Plt Count Lymph % (Auto) [place] % (Auto) [place] # Baso # Seg Neutrophils % Seg Neuts % (Manual) Lymphocytes % (Manual) Monocytes % (Manual) Seg Neutrophils # Seg Neutrophils # Man Lymphocytes # (Manual) Monocytes # (Manual) Eosinophils # (Manual) Basophils # (Manual) PT INR APTT ABG pH ABG pO2 ABG HCO3 ABG O2 Saturation ABG Base Excess ABG Hemoglobin Oxyhemoglobin Sodium Potassium Chloride Carbon Dioxide BUN Creatinine Glucose POC Glucose 117 H 141 H 113 H Lactic Acid Calcium Ionized Calcium Phosphorus Magnesium Total Bilirubin AST ALT Alkaline Phosphatase Ammonia Total Creatine Kinase CK-MB (CK-2) CK-MB (CK-2) Rel Index Total Protein Albumin Urine WBC (Auto) Vancomycin Trough Salicylates Acetaminophen Plasma/Serum Alcohol Crossmatch 02/10/20 02/10/20 02/10/20 05:25 12:50 17:08 WBC RBC Hgb Hct MCH RDW Plt Count Lymph % (Auto) [place] % (Auto) [place] # Baso # Seg Neutrophils % Seg Neuts % (Manual) Lymphocytes % (Manual) Monocytes % (Manual) Seg Neutrophils # Seg Neutrophils # Man Lymphocytes # (Manual) Monocytes # (Manual) Eosinophils # (Manual) Basophils # (Manual) PT INR APTT ABG pH ABG pO2 ABG HCO3 ABG O2 Saturation ABG Base Excess ABG Hemoglobin Oxyhemoglobin Sodium Potassium Chloride Carbon Dioxide BUN Creatinine Glucose POC Glucose 136 H 127 H 111 H Lactic Acid Calcium Ionized Calcium Phosphorus Magnesium Total Bilirubin AST ALT Alkaline Phosphatase Ammonia Total Creatine Kinase CK-MB (CK-2) CK-MB (CK-2) Rel Index Total Protein Albumin Urine WBC (Auto) Vancomycin Trough Salicylates Acetaminophen Plasma/Serum Alcohol Crossmatch 02/10/20 02/11/20 02/11/20 23:55 06:11 12:07 WBC RBC Hgb Hct MCH RDW Plt Count Lymph % (Auto) [place] % (Auto) [place] # Baso # Seg Neutrophils % Seg Neuts % (Manual) Lymphocytes % (Manual) Monocytes % (Manual) Seg Neutrophils # Seg Neutrophils # Man Lymphocytes # (Manual) Monocytes # (Manual) Eosinophils # (Manual) Basophils # (Manual) PT INR APTT ABG pH ABG pO2 ABG HCO3 ABG O2 Saturation ABG Base Excess ABG Hemoglobin Oxyhemoglobin Sodium Potassium Chloride Carbon Dioxide BUN Creatinine Glucose POC Glucose 129 H 128 H 141 H Lactic Acid Calcium Ionized Calcium Phosphorus Magnesium Total Bilirubin AST ALT Alkaline Phosphatase Ammonia Total Creatine Kinase CK-MB (CK-2) CK-MB (CK-2) Rel Index Total Protein Albumin Urine WBC (Auto) Vancomycin Trough Salicylates Acetaminophen Plasma/Serum Alcohol Crossmatch 02/11/20 02/12/20 02/13/20 18:22 02:39 06:45 WBC RBC Hgb Hct MCH RDW Plt Count Lymph % (Auto) [place] % (Auto) [place] # Baso # Seg Neutrophils % Seg Neuts % (Manual) Lymphocytes % (Manual) Monocytes % (Manual) Seg Neutrophils # Seg Neutrophils # Man Lymphocytes # (Manual) Monocytes # (Manual) Eosinophils # (Manual) Basophils # (Manual) PT INR APTT ABG pH ABG pO2 ABG HCO3 ABG O2 Saturation ABG Base Excess ABG Hemoglobin Oxyhemoglobin Sodium Potassium Chloride Carbon Dioxide BUN Creatinine Glucose POC Glucose 118 H 107 H 124 H Lactic Acid Calcium Ionized Calcium Phosphorus Magnesium Total Bilirubin AST ALT Alkaline Phosphatase Ammonia Total Creatine Kinase CK-MB (CK-2) CK-MB (CK-2) Rel Index Total Protein Albumin Urine WBC (Auto) Vancomycin Trough Salicylates Acetaminophen Plasma/Serum Alcohol Crossmatch 02/13/20 02/13/20 02/14/20 12:26 18:19 00:21 WBC RBC Hgb Hct MCH RDW Plt Count Lymph % (Auto) [place] % (Auto) [place] # Baso # Seg Neutrophils % Seg Neuts % (Manual) Lymphocytes % (Manual) Monocytes % (Manual) Seg Neutrophils # Seg Neutrophils # Man Lymphocytes # (Manual) Monocytes # (Manual) Eosinophils # (Manual) Basophils # (Manual) PT INR APTT ABG pH ABG pO2 ABG HCO3 ABG O2 Saturation ABG Base Excess ABG Hemoglobin Oxyhemoglobin Sodium Potassium Chloride Carbon Dioxide BUN Creatinine Glucose POC Glucose 124 H 118 H 130 H Lactic Acid Calcium Ionized Calcium Phosphorus Magnesium Total Bilirubin AST ALT Alkaline Phosphatase Ammonia Total Creatine Kinase CK-MB (CK-2) CK-MB (CK-2) Rel Index Total Protein Albumin Urine WBC (Auto) Vancomycin Trough Salicylates Acetaminophen Plasma/Serum Alcohol Crossmatch 02/14/20 02/14/20 02/16/20 11:19 16:16 00:58 WBC RBC Hgb Hct MCH RDW Plt Count Lymph % (Auto) [place] % (Auto) [place] # Baso # Seg Neutrophils % Seg Neuts % (Manual) Lymphocytes % (Manual) Monocytes % (Manual) Seg Neutrophils # Seg Neutrophils # Man Lymphocytes # (Manual) Monocytes # (Manual) Eosinophils # (Manual) Basophils # (Manual) PT INR APTT ABG pH ABG pO2 ABG HCO3 ABG O2 Saturation ABG Base Excess ABG Hemoglobin Oxyhemoglobin Sodium Potassium Chloride Carbon Dioxide BUN Creatinine Glucose POC Glucose 135 H 119 H 121 H Lactic Acid Calcium Ionized Calcium Phosphorus Magnesium Total Bilirubin AST ALT Alkaline Phosphatase Ammonia Total Creatine Kinase CK-MB (CK-2) CK-MB (CK-2) Rel Index Total Protein Albumin Urine WBC (Auto) Vancomycin Trough Salicylates Acetaminophen Plasma/Serum Alcohol Crossmatch 02/16/20 02/16/20 02/16/20 12:12 18:22 23:51 WBC RBC Hgb Hct MCH RDW Plt Count Lymph % (Auto) [place] % (Auto) [place] # Baso # Seg Neutrophils % Seg Neuts % (Manual) Lymphocytes % (Manual) Monocytes % (Manual) Seg Neutrophils # Seg Neutrophils # Man Lymphocytes # (Manual) Monocytes # (Manual) Eosinophils # (Manual) Basophils # (Manual) PT INR APTT ABG pH ABG pO2 ABG HCO3 ABG O2 Saturation ABG Base Excess ABG Hemoglobin Oxyhemoglobin Sodium Potassium Chloride Carbon Dioxide BUN Creatinine Glucose POC Glucose 107 H 106 H 128 H Lactic Acid Calcium Ionized Calcium Phosphorus Magnesium Total Bilirubin AST ALT Alkaline Phosphatase Ammonia Total Creatine Kinase CK-MB (CK-2) CK-MB (CK-2) Rel Index Total Protein Albumin Urine WBC (Auto) Vancomycin Trough Salicylates Acetaminophen Plasma/Serum Alcohol Crossmatch 02/17/20 02/17/20 02/17/20 05:50 07:57 07:57 WBC 12.6 H RBC 3.52 L Hgb Hct MCH RDW 15.3 H Plt Count 643 H Lymph % (Auto) [place] % (Auto) 8.0 H Bre[place] # 1.0 H Baso # Seg Neutrophils % Seg Neuts % (Manual) Lymphocytes % (Manual) Monocytes % (Manual) Seg Neutrophils # 8.5 H Seg Neutrophils # Man Lymphocytes # (Manual) Monocytes # (Manual) Eosinophils # (Manual) Basophils # (Manual) PT INR APTT ABG pH ABG pO2 ABG HCO3 ABG O2 Saturation ABG Base Excess ABG Hemoglobin Oxyhemoglobin Sodium Potassium Chloride 96.9 L Carbon Dioxide BUN 21 H Creatinine 0.4 L Glucose 113 H POC Glucose 116 H Lactic Acid Calcium 10.5 H Ionized Calcium Phosphorus Magnesium Total Bilirubin AST ALT Alkaline Phosphatase Ammonia Total Creatine Kinase CK-MB (CK-2) CK-MB (CK-2) Rel Index Total Protein Albumin Urine WBC (Auto) Vancomycin Trough Salicylates Acetaminophen Plasma/Serum Alcohol Crossmatch 02/17/20 02/17/20 02/18/20 12:05 18:16 00:13 WBC RBC Hgb Hct MCH RDW Plt Count Lymph % (Auto) [place] % (Auto) [place] # Baso # Seg Neutrophils % Seg Neuts % (Manual) Lymphocytes % (Manual) Monocytes % (Manual) Seg Neutrophils # Seg Neutrophils # Man Lymphocytes # (Manual) Monocytes # (Manual) Eosinophils # (Manual) Basophils # (Manual) PT INR APTT ABG pH ABG pO2 ABG HCO3 ABG O2 Saturation ABG Base Excess ABG Hemoglobin Oxyhemoglobin Sodium Potassium Chloride Carbon Dioxide BUN Creatinine Glucose POC Glucose 139 H 127 H 144 H Lactic Acid Calcium Ionized Calcium Phosphorus Magnesium Total Bilirubin AST ALT Alkaline Phosphatase Ammonia Total Creatine Kinase CK-MB (CK-2) CK-MB (CK-2) Rel Index Total Protein Albumin Urine WBC (Auto) Vancomycin Trough Salicylates Acetaminophen Plasma/Serum Alcohol Crossmatch 02/18/20 02/18/20 02/19/20 17:41 23:28 05:17 WBC RBC Hgb Hct MCH RDW Plt Count Lymph % (Auto) [place] % (Auto) [place] # Baso # Seg Neutrophils % Seg Neuts % (Manual) Lymphocytes % (Manual) Monocytes % (Manual) Seg Neutrophils # Seg Neutrophils # Man Lymphocytes # (Manual) Monocytes # (Manual) Eosinophils # (Manual) Basophils # (Manual) PT INR APTT ABG pH ABG pO2 ABG HCO3 ABG O2 Saturation ABG Base Excess ABG Hemoglobin Oxyhemoglobin Sodium Potassium Chloride Carbon Dioxide BUN Creatinine Glucose POC Glucose 118 H 166 H 116 H Lactic Acid Calcium Ionized Calcium Phosphorus Magnesium Total Bilirubin AST ALT Alkaline Phosphatase Ammonia Total Creatine Kinase CK-MB (CK-2) CK-MB (CK-2) Rel Index Total Protein Albumin Urine WBC (Auto) Vancomycin Trough Salicylates Acetaminophen Plasma/Serum Alcohol Crossmatch 02/19/20 02/19/20 02/20/20 12:33 17:02 00:12 WBC RBC Hgb Hct MCH RDW Plt Count Lymph % (Auto) [place] % (Auto) [place] # Baso # Seg Neutrophils % Seg Neuts % (Manual) Lymphocytes % (Manual) Monocytes % (Manual) Seg Neutrophils # Seg Neutrophils # Man Lymphocytes # (Manual) Monocytes # (Manual) Eosinophils # (Manual) Basophils # (Manual) PT INR APTT ABG pH ABG pO2 ABG HCO3 ABG O2 Saturation ABG Base Excess ABG Hemoglobin Oxyhemoglobin Sodium Potassium Chloride Carbon Dioxide BUN Creatinine Glucose POC Glucose 115 H 108 H 153 H Lactic Acid Calcium Ionized Calcium Phosphorus Magnesium Total Bilirubin AST ALT Alkaline Phosphatase Ammonia Total Creatine Kinase CK-MB (CK-2) CK-MB (CK-2) Rel Index Total Protein Albumin Urine WBC (Auto) Vancomycin Trough Salicylates Acetaminophen Plasma/Serum Alcohol Crossmatch 02/20/20 02/20/20 02/21/20 12:00 23:13 05:07 WBC RBC Hgb Hct MCH RDW Plt Count Lymph % (Auto) [place] % (Auto) [place] # Baso # Seg Neutrophils % Seg Neuts % (Manual) Lymphocytes % (Manual) Monocytes % (Manual) Seg Neutrophils # Seg Neutrophils # Man Lymphocytes # (Manual) Monocytes # (Manual) Eosinophils # (Manual) Basophils # (Manual) PT INR APTT ABG pH ABG pO2 ABG HCO3 ABG O2 Saturation ABG Base Excess ABG Hemoglobin Oxyhemoglobin Sodium Potassium Chloride Carbon Dioxide BUN Creatinine Glucose POC Glucose 171 H 129 H 116 H Lactic Acid Calcium Ionized Calcium Phosphorus Magnesium Total Bilirubin AST ALT Alkaline Phosphatase Ammonia Total Creatine Kinase CK-MB (CK-2) CK-MB (CK-2) Rel Index Total Protein Albumin Urine WBC (Auto) Vancomycin Trough Salicylates Acetaminophen Plasma/Serum Alcohol Crossmatch 02/21/20 02/22/20 02/22/20 12:15 00:42 06:30 WBC RBC Hgb Hct MCH RDW Plt Count Lymph % (Auto) [place] % (Auto) [place] # Baso # Seg Neutrophils % Seg Neuts % (Manual) Lymphocytes % (Manual) Monocytes % (Manual) Seg Neutrophils # Seg Neutrophils # Man Lymphocytes # (Manual) Monocytes # (Manual) Eosinophils # (Manual) Basophils # (Manual) PT INR APTT ABG pH ABG pO2 ABG HCO3 ABG O2 Saturation ABG Base Excess ABG Hemoglobin Oxyhemoglobin Sodium Potassium Chloride Carbon Dioxide BUN Creatinine Glucose POC Glucose 124 H 142 H 117 H Lactic Acid Calcium Ionized Calcium Phosphorus Magnesium Total Bilirubin AST ALT Alkaline Phosphatase Ammonia Total Creatine Kinase CK-MB (CK-2) CK-MB (CK-2) Rel Index Total Protein Albumin Urine WBC (Auto) Vancomycin Trough Salicylates Acetaminophen Plasma/Serum Alcohol Crossmatch 02/22/20 02/22/20 02/23/20 12:20 17:55 12:46 WBC RBC Hgb Hct MCH RDW Plt Count Lymph % (Auto) [place] % (Auto) [place] # Baso # Seg Neutrophils % Seg Neuts % (Manual) Lymphocytes % (Manual) Monocytes % (Manual) Seg Neutrophils # Seg Neutrophils # Man Lymphocytes # (Manual) Monocytes # (Manual) Eosinophils # (Manual) Basophils # (Manual) PT INR APTT ABG pH ABG pO2 ABG HCO3 ABG O2 Saturation ABG Base Excess ABG Hemoglobin Oxyhemoglobin Sodium Potassium Chloride Carbon Dioxide BUN Creatinine Glucose POC Glucose 121 H 157 H 112 H Lactic Acid Calcium Ionized Calcium Phosphorus Magnesium Total Bilirubin AST ALT Alkaline Phosphatase Ammonia Total Creatine Kinase CK-MB (CK-2) CK-MB (CK-2) Rel Index Total Protein Albumin Urine WBC (Auto) Vancomycin Trough Salicylates Acetaminophen Plasma/Serum Alcohol Crossmatch 02/23/20 02/24/20 02/24/20 16:47 00:38 07:00 WBC RBC Hgb Hct MCH RDW Plt Count Lymph % (Auto) [place] % (Auto) [place] # Baso # Seg Neutrophils % Seg Neuts % (Manual) Lymphocytes % (Manual) Monocytes % (Manual) Seg Neutrophils # Seg Neutrophils # Man Lymphocytes # (Manual) Monocytes # (Manual) Eosinophils # (Manual) Basophils # (Manual) PT INR APTT ABG pH ABG pO2 ABG HCO3 ABG O2 Saturation ABG Base Excess ABG Hemoglobin Oxyhemoglobin Sodium Potassium Chloride Carbon Dioxide BUN Creatinine Glucose POC Glucose 142 H 138 H 118 H Lactic Acid Calcium Ionized Calcium Phosphorus Magnesium Total Bilirubin AST ALT Alkaline Phosphatase Ammonia Total Creatine Kinase CK-MB (CK-2) CK-MB (CK-2) Rel Index Total Protein Albumin Urine WBC (Auto) Vancomycin Trough Salicylates Acetaminophen Plasma/Serum Alcohol Crossmatch 02/24/20 02/24/20 02/25/20 11:41 18:33 18:24 WBC RBC Hgb Hct MCH RDW Plt Count Lymph % (Auto) [place] % (Auto) [place] # Baso # Seg Neutrophils % Seg Neuts % (Manual) Lymphocytes % (Manual) Monocytes % (Manual) Seg Neutrophils # Seg Neutrophils # Man Lymphocytes # (Manual) Monocytes # (Manual) Eosinophils # (Manual) Basophils # (Manual) PT INR APTT ABG pH ABG pO2 ABG HCO3 ABG O2 Saturation ABG Base Excess ABG Hemoglobin Oxyhemoglobin Sodium Potassium Chloride Carbon Dioxide BUN Creatinine Glucose POC Glucose 152 H 126 H 120 H Lactic Acid Calcium Ionized Calcium Phosphorus Magnesium Total Bilirubin AST ALT Alkaline Phosphatase Ammonia Total Creatine Kinase CK-MB (CK-2) CK-MB (CK-2) Rel Index Total Protein Albumin Urine WBC (Auto) Vancomycin Trough Salicylates Acetaminophen Plasma/Serum Alcohol Crossmatch 02/25/20 02/26/20 02/26/20 23:40 05:46 11:32 WBC RBC Hgb Hct MCH RDW Plt Count Lymph % (Auto) [place] % (Auto) [place] # Baso # Seg Neutrophils % Seg Neuts % (Manual) Lymphocytes % (Manual) Monocytes % (Manual) Seg Neutrophils # Seg Neutrophils # Man Lymphocytes # (Manual) Monocytes # (Manual) Eosinophils # (Manual) Basophils # (Manual) PT INR APTT ABG pH ABG pO2 ABG HCO3 ABG O2 Saturation ABG Base Excess ABG Hemoglobin Oxyhemoglobin Sodium Potassium Chloride Carbon Dioxide BUN Creatinine Glucose POC Glucose 114 H 113 H 106 H Lactic Acid Calcium Ionized Calcium Phosphorus Magnesium Total Bilirubin AST ALT Alkaline Phosphatase Ammonia Total Creatine Kinase CK-MB (CK-2) CK-MB (CK-2) Rel Index Total Protein Albumin Urine WBC (Auto) Vancomycin Trough Salicylates Acetaminophen Plasma/Serum Alcohol Crossmatch 02/26/20 02/27/20 02/27/20 16:14 11:53 17:54 WBC RBC Hgb Hct MCH RDW Plt Count Lymph % (Auto) [place] % (Auto) [place] # Baso # Seg Neutrophils % Seg Neuts % (Manual) Lymphocytes % (Manual) Monocytes % (Manual) Seg Neutrophils # Seg Neutrophils # Man Lymphocytes # (Manual) Monocytes # (Manual) Eosinophils # (Manual) Basophils # (Manual) PT INR APTT ABG pH ABG pO2 ABG HCO3 ABG O2 Saturation ABG Base Excess ABG Hemoglobin Oxyhemoglobin Sodium Potassium Chloride Carbon Dioxide BUN Creatinine Glucose POC Glucose 123 H 134 H 119 H Lactic Acid Calcium Ionized Calcium Phosphorus Magnesium Total Bilirubin AST ALT Alkaline Phosphatase Ammonia Total Creatine Kinase CK-MB (CK-2) CK-MB (CK-2) Rel Index Total Protein Albumin Urine WBC (Auto) Vancomycin Trough Salicylates Acetaminophen Plasma/Serum Alcohol Crossmatch 02/27/20 02/28/20 02/28/20 23:51 03:40 03:40 WBC RBC 3.58 L Hgb Hct MCH RDW Plt Count 575 H Lymph % (Auto) [place] % (Auto) 9.4 H Bremer # 1.0 H Baso # Seg Neutrophils % Seg Neuts % (Manual) Lymphocytes % (Manual) Monocytes % (Manual) Seg Neutrophils # Seg Neutrophils # Man Lymphocytes # (Manual) Monocytes # (Manual) Eosinophils # (Manual) Basophils # (Manual) PT INR APTT ABG pH ABG pO2 ABG HCO3 ABG O2 Saturation ABG Base Excess ABG Hemoglobin Oxyhemoglobin Sodium Potassium Chloride Carbon Dioxide BUN 23 H Creatinine 0.5 L Glucose 114 H POC Glucose 138 H Lactic Acid Calcium Ionized Calcium Phosphorus Magnesium Total Bilirubin AST ALT Alkaline Phosphatase Ammonia Total Creatine Kinase CK-MB (CK-2) CK-MB (CK-2) Rel Index Total Protein Albumin Urine WBC (Auto) Vancomycin Trough Salicylates Acetaminophen Plasma/Serum Alcohol Crossmatch 02/28/20 02/28/20 02/29/20 12:37 18:38 05:50 WBC RBC Hgb Hct MCH RDW Plt Count Lymph % (Auto) [place] % (Auto) [place] # Baso # Seg Neutrophils % Seg Neuts % (Manual) Lymphocytes % (Manual) Monocytes % (Manual) Seg Neutrophils # Seg Neutrophils # Man Lymphocytes # (Manual) Monocytes # (Manual) Eosinophils # (Manual) Basophils # (Manual) PT INR APTT ABG pH ABG pO2 ABG HCO3 ABG O2 Saturation ABG Base Excess ABG Hemoglobin Oxyhemoglobin Sodium Potassium Chloride Carbon Dioxide BUN Creatinine Glucose POC Glucose 115 H 120 H 114 H Lactic Acid Calcium Ionized Calcium Phosphorus Magnesium Total Bilirubin AST ALT Alkaline Phosphatase Ammonia Total Creatine Kinase CK-MB (CK-2) CK-MB (CK-2) Rel Index Total Protein Albumin Urine WBC (Auto) Vancomycin Trough Salicylates Acetaminophen Plasma/Serum Alcohol Crossmatch 02/29/20 02/29/20 03/01/20 18:53 23:10 06:53 WBC RBC Hgb Hct MCH RDW Plt Count Lymph % (Auto) [place] % (Auto) [place] # Baso # Seg Neutrophils % Seg Neuts % (Manual) Lymphocytes % (Manual) Monocytes % (Manual) Seg Neutrophils # Seg Neutrophils # Man Lymphocytes # (Manual) Monocytes # (Manual) Eosinophils # (Manual) Basophils # (Manual) PT INR APTT ABG pH ABG pO2 ABG HCO3 ABG O2 Saturation ABG Base Excess ABG Hemoglobin Oxyhemoglobin Sodium Potassium Chloride Carbon Dioxide BUN Creatinine Glucose POC Glucose 112 H 147 H 131 H Lactic Acid Calcium Ionized Calcium Phosphorus Magnesium Total Bilirubin AST ALT Alkaline Phosphatase Ammonia Total Creatine Kinase CK-MB (CK-2) CK-MB (CK-2) Rel Index Total Protein Albumin Urine WBC (Auto) Vancomycin Trough Salicylates Acetaminophen Plasma/Serum Alcohol Crossmatch 03/01/20 03/01/20 03/02/20 17:31 18:35 00:10 WBC RBC Hgb Hct MCH RDW Plt Count Lymph % (Auto) [place] % (Auto) [place] # Baso # Seg Neutrophils % Seg Neuts % (Manual) Lymphocytes % (Manual) Monocytes % (Manual) Seg Neutrophils # Seg Neutrophils # Man Lymphocytes # (Manual) Monocytes # (Manual) Eosinophils # (Manual) Basophils # (Manual) PT INR APTT ABG pH ABG pO2 ABG HCO3 ABG O2 Saturation ABG Base Excess ABG Hemoglobin Oxyhemoglobin Sodium Potassium Chloride Carbon Dioxide BUN Creatinine Glucose POC Glucose 61 L 129 H 117 H Lactic Acid Calcium Ionized Calcium Phosphorus Magnesium Total Bilirubin AST ALT Alkaline Phosphatase Ammonia Total Creatine Kinase CK-MB (CK-2) CK-MB (CK-2) Rel Index Total Protein Albumin Urine WBC (Auto) Vancomycin Trough Salicylates Acetaminophen Plasma/Serum Alcohol Crossmatch 03/02/20 03/02/20 03/02/20 06:56 12:02 18:42 WBC RBC Hgb Hct MCH RDW Plt Count Lymph % (Auto) [place] % (Auto) [place] # Baso # Seg Neutrophils % Seg Neuts % (Manual) Lymphocytes % (Manual) Monocytes % (Manual) Seg Neutrophils # Seg Neutrophils # Man Lymphocytes # (Manual) Monocytes # (Manual) Eosinophils # (Manual) Basophils # (Manual) PT INR APTT ABG pH ABG pO2 ABG HCO3 ABG O2 Saturation ABG Base Excess ABG Hemoglobin Oxyhemoglobin Sodium Potassium Chloride Carbon Dioxide BUN Creatinine Glucose POC Glucose 125 H 111 H 126 H Lactic Acid Calcium Ionized Calcium Phosphorus Magnesium Total Bilirubin AST ALT Alkaline Phosphatase Ammonia Total Creatine Kinase CK-MB (CK-2) CK-MB (CK-2) Rel Index Total Protein Albumin Urine WBC (Auto) Vancomycin Trough Salicylates Acetaminophen Plasma/Serum Alcohol Crossmatch 03/03/20 03/03/20 03/03/20 00:18 06:11 11:50 WBC RBC Hgb Hct MCH RDW Plt Count Lymph % (Auto) [place] % (Auto) [place] # Baso # Seg Neutrophils % Seg Neuts % (Manual) Lymphocytes % (Manual) Monocytes % (Manual) Seg Neutrophils # Seg Neutrophils # Man Lymphocytes # (Manual) Monocytes # (Manual) Eosinophils # (Manual) Basophils # (Manual) PT INR APTT ABG pH ABG pO2 ABG HCO3 ABG O2 Saturation ABG Base Excess ABG Hemoglobin Oxyhemoglobin Sodium Potassium Chloride Carbon Dioxide BUN Creatinine Glucose POC Glucose 139 H 155 H 118 H Lactic Acid Calcium Ionized Calcium Phosphorus Magnesium Total Bilirubin AST ALT Alkaline Phosphatase Ammonia Total Creatine Kinase CK-MB (CK-2) CK-MB (CK-2) Rel Index Total Protein Albumin Urine WBC (Auto) Vancomycin Trough Salicylates Acetaminophen Plasma/Serum Alcohol Crossmatch 03/03/20 03/03/20 03/04/20 18:09 23:46 05:37 WBC RBC Hgb Hct MCH RDW Plt Count Lymph % (Auto) [place] % (Auto) [place] # Baso # Seg Neutrophils % Seg Neuts % (Manual) Lymphocytes % (Manual) Monocytes % (Manual) Seg Neutrophils # Seg Neutrophils # Man Lymphocytes # (Manual) Monocytes # (Manual) Eosinophils # (Manual) Basophils # (Manual) PT INR APTT ABG pH ABG pO2 ABG HCO3 ABG O2 Saturation ABG Base Excess ABG Hemoglobin Oxyhemoglobin Sodium Potassium Chloride Carbon Dioxide BUN Creatinine Glucose POC Glucose 109 H 132 H 111 H Lactic Acid Calcium Ionized Calcium Phosphorus Magnesium Total Bilirubin AST ALT Alkaline Phosphatase Ammonia Total Creatine Kinase CK-MB (CK-2) CK-MB (CK-2) Rel Index Total Protein Albumin Urine WBC (Auto) Vancomycin Trough Salicylates Acetaminophen Plasma/Serum Alcohol Crossmatch 03/04/20 03/04/20 03/05/20 11:38 17:54 00:14 WBC RBC Hgb Hct MCH RDW Plt Count Lymph % (Auto) [place] % (Auto) [place] # Baso # Seg Neutrophils % Seg Neuts % (Manual) Lymphocytes % (Manual) Monocytes % (Manual) Seg Neutrophils # Seg Neutrophils # Man Lymphocytes # (Manual) Monocytes # (Manual) Eosinophils # (Manual) Basophils # (Manual) PT INR APTT ABG pH ABG pO2 ABG HCO3 ABG O2 Saturation ABG Base Excess ABG Hemoglobin Oxyhemoglobin Sodium Potassium Chloride Carbon Dioxide BUN Creatinine Glucose POC Glucose 138 H 118 H 134 H Lactic Acid Calcium Ionized Calcium Phosphorus Magnesium Total Bilirubin AST ALT Alkaline Phosphatase Ammonia Total Creatine Kinase CK-MB (CK-2) CK-MB (CK-2) Rel Index Total Protein Albumin Urine WBC (Auto) Vancomycin Trough Salicylates Acetaminophen Plasma/Serum Alcohol Crossmatch 03/06/20 03/06/20 03/06/20 03:37 03:37 06:29 WBC RBC Hgb Hct MCH RDW Plt Count 550 H Lymph % (Auto) [place] % (Auto) 9.1 H [place] # Baso # Seg Neutrophils % Seg Neuts % (Manual) Lymphocytes % (Manual) Monocytes % (Manual) Seg Neutrophils # Seg Neutrophils # Man Lymphocytes # (Manual) Monocytes # (Manual) Eosinophils # (Manual) Basophils # (Manual) PT INR APTT ABG pH ABG pO2 ABG HCO3 ABG O2 Saturation ABG Base Excess ABG Hemoglobin Oxyhemoglobin Sodium Potassium Chloride Carbon Dioxide BUN 26 H Creatinine 0.5 L Glucose POC Glucose 128 H Lactic Acid Calcium 10.4 H Ionized Calcium Phosphorus Magnesium Total Bilirubin AST ALT Alkaline Phosphatase Ammonia Total Creatine Kinase CK-MB (CK-2) CK-MB (CK-2) Rel Index Total Protein Albumin Urine WBC (Auto) Vancomycin Trough Salicylates Acetaminophen Plasma/Serum Alcohol Crossmatch 03/06/20 03/07/20 03/07/20 17:47 06:37 12:37 WBC RBC Hgb Hct MCH RDW Plt Count Lymph % (Auto) [place] % (Auto) [place] # Baso # Seg Neutrophils % Seg Neuts % (Manual) Lymphocytes % (Manual) Monocytes % (Manual) Seg Neutrophils # Seg Neutrophils # Man Lymphocytes # (Manual) Monocytes # (Manual) Eosinophils # (Manual) Basophils # (Manual) PT INR APTT ABG pH ABG pO2 ABG HCO3 ABG O2 Saturation ABG Base Excess ABG Hemoglobin Oxyhemoglobin Sodium Potassium Chloride Carbon Dioxide BUN Creatinine Glucose POC Glucose 120 H 113 H 118 H Lactic Acid Calcium Ionized Calcium Phosphorus Magnesium Total Bilirubin AST ALT Alkaline Phosphatase Ammonia Total Creatine Kinase CK-MB (CK-2) CK-MB (CK-2) Rel Index Total Protein Albumin Urine WBC (Auto) Vancomycin Trough Salicylates Acetaminophen Plasma/Serum Alcohol Crossmatch Allied health notes reviewed: RT
[2020-03-07] MEDS: ENOXAPARIN 40 MG/0.4 ML INJ SUB-Q SCH (22:31)
[2020-03-08] MEDS: ALPRAZolam 1 MG TAB PO PRN (01:02)
[2020-03-08] MEDS: LEVALBUTEROL 0.63 MG/3 ML NEBU IH SCH ×4 (01:08→16:25)
--- NOTE | 2020-03-08 08:09 | Progress Note ---
Assessment and Plan Assessment and plan: 54-year-old female with a past medical history of Hypertension, Depression, Tobacco use Disorder, Alcohol use Disorder as confirmed by Daughter and pt's mother presents to the hospital status post cardiac arrest at home. EMS found pt in [facility]. They were unable to intubate patient with a ET tube because she was clenching down therefore Joe airway placed. Per the ED physician who evaluated pt, Patient presented with a pulse, intermittent respirations, and bagging support via Joe airway with O2 sat of 100%. Accu-Chek of 71 obtained by EMS. She was intubated in the ER and called for admission. Following admission patient was diagnosed with anoxic brain injury, sepsis with MRSA bacteremia and MSSA pneumonia, alcoholic liver disease. Family member initially wished for full code then changed to DNR, patient treated with IV antibiotics for sepsis, status post trach and PEG on 12/13/19. Weaned off from the vent and put on T- piece. Patient is uninsured, waiting for placement, guarded prognosis. 03/07: Returning to service no acute changes are noted. Continue current management while awaiting placement. Intermittent labs. Base of neck also around tracheostomy tube preventing downgrading. Continue appropriate wound care. 03/08: Plan of care unchanged continues on aerosol trach collar 28% of oxygen. Continue wound care management placement still pending status decision. / Anoxic brain injury: suspected CT head: No acute abnormality. EEG ordered showed Generalized slowing. No seizures or epileptiform activity. -Patient now opening her eyes, can speak and able to follow command - as needed haldol for agitation /Acute Respiratory failure - due to MSSA PNA -s/p intubation, s/p trach and PEG on 12/12 with mechanical ventilation, now on T-piece - CTA was done and negative for PE, - Echo quality is poor, showed diastolic dysfunction - continue weaning as tolerated -Continue appropriate and adequate tracheostomy care /Tracheostomy site ulceration -Continue appropriate wound management try to keep area dry. /Anemia, microcytic - Status post 3 units PRBC transfusion, H&H low stable /Acute metabolic encephalopathy/toxic encephalopathy due to the above - cont supportive care /Hyperammonemia - likely from liver disease related to EtOH abuse - Patient had elevated ammonia level and treated with lactulose /Metabolic Acidosis -Alcohol ketoacidosis vs hypoprofusion -Continue to monitor /ELevated LFTs, stable now - due to ischemic hepatitis. /Leucocytosis with sepsis - Source MRSA bacteremia and MSSA pneumonia. UA showed pyuria. RUQ US showed no ascites. - Repeat TTE negative for vegetation. Completed 7 days of Ceftriaxone on 11/29/2019. -Treated with Abx vancomycin 1 gm IV q 12 hour total 2 week till 12/30/2019 /MSSA pneumonia: Status post vancomycin till 12/30/2019 /ALcohol USe Disorder - given ongoing Alcohol use almost daily, s/p IV Thiamine - monitor /Severe hypokalemia -Repleted /Seizure disorder: treat with Keppra /H. Influenzae, tracheobronchitis, treated with abx /Moderate to severe fecal impaction - will add stool softner DNR CODE STATUS Disposition: prognosis guarded. Family okay for DNR, PT recommended subacute rehab, discharge pending on placement. negative for COVID 19 History Interval history: Patient seen and examined no clinical change at this time continues on ATC at 28% off oxygen. calm this am Hospitalist Physical - Physical exam Narrative exam: General appearance: Present: Appears older than stated age tries to talk. Intermittent agitation - EENT Eyes: no scleral icterus, no conjunctival injection, pupil not reactive ENT: clear oral mucosa, dentition normal, no oropharyngeal erythema Ears: bilateral: normal - Neck Neck: trach on place with mild ulceration at the base. - Respiratory Respiratory effort: other (on T-piece) Respiratory: bilateral: rales - Cardiovascular Rhythm: regular Heart Sounds: Present: S1 & S2. Absent: gallop, rub Extremities: pulses intact, No edema, normal color - Gastrointestinal General gastrointestinal: Present: soft, non-tender, non-distended, normal bowel sounds - Integumentary Integumentary: clear, warm, dry - Musculoskeletal Musculoskeletal: No joint swelling or tenderness - Neurologic Neurologic: other (2+ reflexes throughout). respond to commend and nods head. generalized weakness, verbal - Psychiatric Psychiatric: co-operative - Constitutional Vitals: Temp Pulse Resp BP Pulse Ox 97.8 F 97 H 22 126/78 99 03/08/20 06:07 03/08/20 06:07 03/08/20 06:07 03/08/20 06:07 03/08/20 06:07 General appearance: Present: mild distress, cachectic, disheveled, other (Noncommunicative) HEART Score - HEART Score Troponin: Troponin T < 0.010 ng/mL (0.00-0.029) 11/22/19 23:27 Results - Labs CBC & Chem 7: 03/06/20 03:37 03/06/20 03:37 Labs: Laboratory Last Values WBC 8.1 K/mm3 (4.5-11.0) 03/06/20 03:37 RBC 3.79 M/mm3 (3.65-5.03) 03/06/20 03:37 Hgb 11.2 gm/dl (10.1-14.3) 03/06/20 03:37 Hct 33.3 % (30.3-42.9) 03/06/20 03:37 MCV 88 fl (79-97) 03/06/20 03:37 MCH 30 pg (28-32) 03/06/20 03:37 MCHC 34 % (30-34) 03/06/20 03:37 RDW 14.6 % (13.2-15.2) 03/06/20 03:37 Plt Count 550 K/mm3 (140-440) H 03/06/20 03:37 Lymph % (Auto) 27.8 % (13.4-35.0) 03/06/20 03:37 [place] % (Auto) 9.1 % (0.0-7.3) H 03/06/20 03:37 Eos % (Auto) 2.8 % (0.0-4.3) 03/06/20 03:37 Baso % (Auto) 0.7 % (0.0-1.8) 03/06/20 03:37 Lymph # 2.2 K/mm3 (1.2-5.4) 03/06/20 03:37 [place] # 0.7 K/mm3 (0.0-0.8) 03/06/20 03:37 Eos # 0.2 K/mm3 (0.0-0.4) 03/06/20 03:37 Baso # 0.1 K/mm3 (0.0-0.1) 03/06/20 03:37 Add Manual Diff Complete 12/25/19 03:47 Total Counted 200 12/25/19 03:47 Seg Neutrophils % 59.6 % (40.0-70.0) 03/06/20 03:37 Seg Neuts % (Manual) 97.5 % (40.0-70.0) H 12/25/19 03:47 Band Neutrophils % 0 % 12/25/19 03:47 Lymphocytes % (Manual) 1.0 % (13.4-35.0) L 12/25/19 03:47 Reactive Lymphs % (Man) 0 % 12/25/19 03:47 Monocytes % (Manual) 1.5 % (0.0-7.3) 12/25/19 03:47 Eosinophils % (Manual) 0 % (0.0-4.3) 12/25/19 03:47 Basophils % (Manual) 0 % (0.0-1.8) 12/25/19 03:47 Metamyelocytes % 0 % 12/25/19 03:47 Myelocytes % 0 % 12/25/19 03:47 Promyelocytes % 0 % 12/25/19 03:47 Blast Cells % 0 % 12/25/19 03:47 Nucleated RBC % Not Reportable 12/25/19 03:47 Seg Neutrophils # 4.8 K/mm3 (1.8-7.7) 03/06/20 03:37 Seg Neutrophils # Man 35.3 K/mm3 (1.8-7.7) H 12/25/19 03:47 Band Neutrophils # 0.0 K/mm3 12/25/19 03:47 Lymphocytes # (Manual) 0.4 K/mm3 (1.2-5.4) L 12/25/19 03:47 Abs React Lymphs (Man) 0.0 K/mm3 12/25/19 03:47 Monocytes # (Manual) 0.5 K/mm3 (0.0-0.8) 12/25/19 03:47 Eosinophils # (Manual) 0.0 K/mm3 (0.0-0.4) 12/25/19 03:47 Basophils # (Manual) 0.0 K/mm3 (0.0-0.1) 12/25/19 03:47 Metamyelocytes # 0.0 K/mm3 12/25/19 03:47 Myelocytes # 0.0 K/mm3 12/25/19 03:47 Promyelocytes # 0.0 K/mm3 12/25/19 03:47 Blast Cells # 0.0 K/mm3 12/25/19 03:47 Pathologist Review 12/13/19 07:48 WBC Morphology Not Reportable 12/25/19 03:47 Hypersegmented Neuts Not Reportable 12/25/19 03:47 Hyposegmented Neuts Not Reportable 12/25/19 03:47 Hypogranular Neuts Not Reportable 12/25/19 03:47 Smudge Cells Not Reportable 12/25/19 03:47 Toxic Granulation Not Reportable 12/25/19 03:47 Toxic Vacuolation Not Reportable 12/25/19 03:47 Dohle Bodies Not Reportable 12/25/19 03:47 Pelger-Huet Anomaly Not Reportable 12/25/19 03:47 Dominique Rods Not Reportable 12/25/19 03:47 Platelet Estimate Consistent w auto 12/25/19 03:47 Clumped Platelets Not Reportable 12/25/19 03:47 Plt Clumps, EDTA Not Reportable 12/25/19 03:47 Large Platelets Not Reportable 12/25/19 03:47 Giant Platelets Not Reportable 12/25/19 03:47 Platelet Satelliting Not Reportable 12/25/19 03:47 Plt Morphology Comment Not Reportable 12/25/19 03:47 RBC Morphology Not Reportable 12/25/19 03:47 Dimorphic RBCs Not Reportable 12/25/19 03:47 Polychromasia Not Reportable 12/25/19 03:47 Hypochromasia Not Reportable 12/25/19 03:47 Poikilocytosis Not Reportable 12/25/19 03:47 Anisocytosis 1+ 12/25/19 03:47 Microcytosis Not Reportable 12/25/19 03:47 Macrocytosis Not Reportable 12/25/19 03:47 Spherocytes Not Reportable 12/25/19 03:47 Pappenheimer Bodies Not Reportable 12/25/19 03:47 Sickle Cells Not Reportable 12/25/19 03:47 Target Cells Not Reportable 12/25/19 03:47 Tear Drop Cells Not Reportable 12/25/19 03:47 Ovalocytes Not Reportable 12/25/19 03:47 Helmet Cells Not Reportable 12/25/19 03:47 [place] Bodies Not Reportable 12/25/19 03:47 [place] Rings Not Reportable 12/25/19 03:47 [place] Cells Not Reportable 12/25/19 03:47 Bite Cells Not Reportable 12/25/19 03:47 Crenated Cell Not Reportable 12/25/19 03:47 Elliptocytes Not Reportable 12/25/19 03:47 Acanthocytes (Spur) Not Reportable 12/25/19 03:47 Rouleaux Not Reportable 12/25/19 03:47 Hemoglobin C Crystals Not Reportable 12/25/19 03:47 Schistocytes Not Reportable 12/25/19 03:47 Malaria parasites Not Reportable 12/25/19 03:47 Gregg Bodies Not Reportable 12/25/19 03:47 Hem Pathologist Commnt No 12/25/19 03:47 PT 17.0 Sec. (12.2-14.9) H 11/23/19 03:47 INR 1.36 (0.87-1.13) H 11/23/19 03:47 APTT 128.2 Sec. (24.2-36.6) H* 11/23/19 03:47 Heparin Anti-Xa Level 0.31 U.I./ml (0.3-0.7) 11/23/19 09:03 ABG pH 7.429 pH Units (7.350-7.450) 01/09/20 08:51 ABG pCO2 39.1 mm Hg 01/09/20 08:51 ABG pO2 94.3 mm Hg (80.0-90.0) H 01/09/20 08:51 ABG HCO3 25.3 mmol/L (20.0-26.0) 01/09/20 08:51 ABG O2 Saturation 97.4 % (95.0-99.0) 01/09/20 08:51 ABG O2 Content 12.9 (0.0-44) 01/09/20 08:51 ABG Base Excess 1.0 mmol/L (-2.0-3.0) 01/09/20 08:51 ABG Hemoglobin 9.5 gm/dl (12.0-16.0) L 01/09/20 08:51 ABG Carboxyhemoglobin 1.3 % (0.0-5.0) 01/09/20 08:51 ABG Methemoglobin 0.4 % (0.0-1.5) 01/09/20 08:51 Oxyhemoglobin 95.7 % (95.0-99.0) 01/09/20 08:51 FiO2 35 % 01/09/20 08:51 Sodium 137 mmol/L (137-145) 03/06/20 03:37 Potassium 3.8 mmol/L (3.6-5.0) 03/06/20 03:37 Chloride 99.2 mmol/L (98-107) 03/06/20 03:37 Carbon Dioxide 24 mmol/L (22-30) 03/06/20 03:37 Anion Gap 18 mmol/L 03/06/20 03:37 BUN 26 mg/dL (7-17) H 03/06/20 03:37 Creatinine 0.5 mg/dL (0.7-1.2) L 03/06/20 03:37 Estimated GFR > 60 ml/min 03/06/20 03:37 BUN/Creatinine Ratio 52 % 03/06/20 03:37 Glucose 98 mg/dL (65-100) 03/06/20 03:37 POC Glucose 139 (70-105) H 03/08/20 00:55 Lactic Acid 1.80 mmol/L (0.7-2.0) 11/25/19 05:05 Calcium 10.4 mg/dL (8.4-10.2) H 03/06/20 03:37 Ionized Calcium 4.5 mg/dL (4.8-5.6) L 11/23/19 06:32 Phosphorus 4.20 mg/dL (2.5-4.5) D 11/28/19 08:59 Magnesium 1.90 mg/dL (1.7-2.3) 02/28/20 03:40 Total Bilirubin 0.40 mg/dL (0.1-1.2) 12/13/19 07:48 AST 27 units/L (5-40) 12/13/19 07:48 ALT 26 units/L (7-56) 12/13/19 07:48 Alkaline Phosphatase 316 units/L (35-129) H 12/13/19 07:48 Ammonia 42.0 umol/L (25-60) 11/29/19 13:41 Total Creatine Kinase 139 units/L (30-135) H 11/22/19 23:27 CK-MB (CK-2) 8.3 ng/mL (0.0-4.0) H 11/22/19 23:27 CK-MB (CK-2) Rel Index 5.9 (0-4) H 11/22/19 23:27 Troponin T < 0.010 ng/mL (0.00-0.029) 11/22/19 23:27 Total Protein 6.8 g/dL (6.3-8.2) 12/13/19 07:48 Albumin 2.4 g/dL (3.9-5) L 12/13/19 07:48 Albumin/Globulin Ratio 0.5 % 12/13/19 07:48 Lipase 18 units/L (13-60) 11/23/19 00:34 Procalcitonin 1.09 ng/mL (<0.15) 11/23/19 04:53 TSH 1.010 mlU/mL (0.270-4.200) 02/12/20 07:36 Free T4 1.08 ng/dL (0.76-1.46) 02/12/20 07:36 Urine Color Yellow (Yellow) 12/16/19 Unknown Urine Turbidity Slightly-cloudy (Clear) 12/16/19 Unknown Urine pH 5.0 (5.0-7.0) 12/16/19 Unknown Ur Specific [place] 1.018 (1.003-1.030) 12/16/19 Unknown Urine Protein 30 mg/dl mg/dL (Negative) 12/16/19 Unknown Urine Glucose (UA) Neg mg/dL (Negative) 12/16/19 Unknown Urine Ketones Neg mg/dL (Negative) 12/16/19 Unknown Urine Blood Sm (Negative) 12/16/19 Unknown Urine Nitrite Neg (Negative) 12/16/19 Unknown Urine Bilirubin Neg (Negative) 12/16/19 Unknown Urine Urobilinogen < 2.0 mg/dL (<2.0) 12/16/19 Unknown Ur Leukocyte Esterase Neg (Negative) 12/16/19 Unknown Urine WBC (Auto) 6.0 /HPF (0.0-6.0) 12/16/19 Unknown Urine RBC (Auto) 9.0 /HPF (0.0-6.0) 12/16/19 Unknown U Epithel Cells (Auto) < 1.0 /HPF (0-13.0) 12/16/19 Unknown Urine Bacteria (Auto) 2+ /HPF (Negative) 11/22/19 23:17 Hyaline Casts 3 /LPF 12/16/19 Unknown Granular Casts 3 /LPF 12/16/19 Unknown Urine Mucus Few /HPF 12/16/19 Unknown Vancomycin Trough 33.8 ug/mL (5.0-20.0) H 12/21/19 08:56 Random Vancomycin 16.2 ug/mL (0-40.0) 12/24/19 04:31 Salicylates < 0.3 mg/dL (2.8-20.0) L 11/22/19 23:27 Urine Opiates Screen Presumptive negative 11/22/19 23:17 Urine Methadone Screen Presumptive negative 11/22/19 23:17 Acetaminophen < 5.0 ug/mL (10.0-30.0) L 11/22/19 23:27 Ur Barbiturates Screen Presumptive negative 11/22/19 23:17 Ur Phencyclidine Scrn Presumptive negative 11/22/19 23:17 Ur Amphetamines Screen Presumptive negative 11/22/19 23:17 U Benzodiazepines Scrn Presumptive negative 11/22/19 23:17 Urine Cocaine Screen Presumptive negative 11/22/19 23:17 U Marijuana (THC) Screen Presumptive negative 11/22/19 23:17 Drugs of Abuse Note Disclamer 11/22/19 23:17 Plasma/Serum Alcohol 0.08 % (0-0.07) H 11/22/19 23:27 Coronavirus (PCR) Negative (Negative) 02/05/20 07:50 Hepatitis A IgM Ab Non-reactive (NonReactive) 11/23/19 01:19 Hep Bs Antigen Non-reactive (Negative) 11/23/19 01:19 Hep B Core IgM Ab Non-reactive (NonReactive) 11/23/19 01:19 Hepatitis C Antibody Non-reactive (NonReactive) 11/23/19 01:19 Blood Type O POSITIVE 12/21/19 14:54 Antibody Screen Negative 12/21/19 14:54 Crossmatch See Detail 12/21/19 14:54 - Diagnostic Impressions Diagnostic Impressions: Echocardiogram 11/23/19 03:58 Transthoracic Echocardiogram Indication: Cardiac arrest BP: 131/89 HR: 115 Conclusions *The study quality is technically difficult. *Global left ventricular wall motion and contractility are within normal limits. *The estimated ejection fraction is 55-60%. *Abnormal left ventricular diastolic filling is observed, consistent with impaired relaxation. *There is no pericardial effusion. Findings Procedure Info: The study quality is technically difficult. The study was technically limited due to the patient's inability to lay in the left lateral decubitus position. Left Ventricle: The left ventricular chamber size is normal. There is no left ventricular hypertrophy. Global left ventricular wall motion and contractility are within normal limits. Global left ventricular systolic function is normal. The estimated ejection fraction is 55-60%. Abnormal left ventricular diastolic filling is observed, consistent with impaired relaxation. Left Atrium: The left atrial chamber size is normal. Aortic Valve: The aortic valve leaflets are mildly thickened. Mitral Valve: The mitral valve leaflets are mildly thickened. There is no evidence of mitral regurgitation. Tricuspid Valve: The tricuspid valve leaflets are normal. There is trace tricuspid regurgitation. The right ventricular systolic pressure is calculated at 33 mmHg. Pulmonic Valve: The pulmonic valve appears normal. Pericardium: The pericardium appears normal. There is no pericardial effusion. Aorta: The aorta appears normal. Venous: The inferior vena cava appears normal in size. Measurements Chambers 2D Name Value Normal Range IVSd (2D) 0.94 cm (0.6 - 1.1) LVPWd (2D) 0.81 cm (0.6 - 1.1) LVIDd (2D) 3.6 cm (3.7 - 5.6) LVIDs (2D) 2.27 cm (2 - 3.8) LV FS (2D) 36.93 % - EF Teichholz (2D) 67.76 % - Ao root diameter (2D) 3.03 cm (2 - 3.7) Volumes/Mass Name Value Normal Range LA ESV SP 4CH (A/L) 16.89 ml - LA ESV SP 4CH (MOD) 15.52 ml - Diastolic/Systolic Function Name Value Normal Range MV E-wave Vmax 0.55 m/sec - MV deceleration time 200.89 msec - MV A-wave Vmax 0.68 m/sec - MV E:A ratio 0.82 ratio - Aortic Valve Name Value Normal Range AV Vmax 1.1 m/sec - AV VTI 15.9 cm - AV peak gradient 4.86 mmHg - AV mean gradient 2.59 mmHg - LVOT diameter 2 cm - LVOT Vmax 1.03 m/sec - LVOT VTI 15.87 cm - LVOT peak gradient 4.24 mmHg - LVOT mean gradient 2.41 mmHg - SV LVOT 49.77 ml - JOSÉ MIGUEL (continuity Vmax) 2.93 cm2 - JOSÉ MIGUEL (continuity VTI) 3.13 cm2 - Tricuspid Valve Name Value Normal Range TR Vmax 2.74 m/sec - TR peak gradient 303 mmHg - RAP 3 mmHg - RVSP 33 mmHg - IVC diameter 1.77 cm (1.2 - 2.3) Pulmonic Valve/Qp:Qs Name Value Normal Range PV Vmax 0.77 m/sec - PV peak gradient 2.4 mmHg - PV acceleration time 114.18 msec - Echocardiogram Limited Views 12/17/19 14:53 Transthoracic Echocardiogram Indication: R/O Vegetations BP: 144/83 HR: 133 Conclusions *Global left ventricular systolic function is mildly decreased. *The estimated ejection fraction is 45-50%. *A trivial pericardial effusion is visualized. Findings Left Ventricle: The left ventricular chamber size is normal. Global left ventricular systolic function is mildly decreased. The estimated ejection fraction is 45-50%. Left Atrium: The left atrial chamber size is normal. Right Ventricle: The right ventricular cavity size is normal. Right Atrium: The right atrial cavity size is normal. Aortic Valve: The aortic valve is not well visualized. There is no evidence of aortic regurgitation. Mitral Valve: The mitral valve leaflets are mildly thickened. There is trace of mitral regurgitation. Tricuspid Valve: The tricuspid valve leaflets are mildly thickened. There is trace tricuspid regurgitation. The right ventricular systolic pressure is calculated at 29 mmHg. Pulmonic Valve: The pulmonic valve is not well visualized. There is no evidence of pulmonic regurgitation. Pericardium: A trivial pericardial effusion is visualized. Aorta: There is no dilatation of the ascending aorta. There is no dilatation of the aortic root. Venous: The inferior vena cava appears normal in size. There is a greater than 50% respiratory change in the inferior vena cava dimension. Measurements Chambers 2D Name Value Normal Range IVSd (2D) 0.83 cm (0.6 - 1.1) LVPWd (2D) 0.98 cm (0.6 - 1.1) LVIDd (2D) 3.71 cm (3.7 - 5.6) LVIDs (2D) 2.93 cm (2 - 3.8) LV FS (2D) 21.12 % - EF Teichholz (2D) 43.71 % - Ao root diameter (2D) 3.02 cm (2 - 3.7) Volumes/Mass Name Value Normal Range LA ESV SP 4CH (A/L) 36.8 ml - LA ESV SP 2CH (A/L) 45.89 ml - LA ESV BP (A/L) 42.35 ml - LA ESV BP (A/L) index 26.63 ml/m2 - LA ESV SP 4CH (MOD) 34.42 ml - LA ESV SP 2CH (MOD) 44.21 ml - LA ESV BP (MOD) 39.82 ml - LA ESV BP (MOD) index 25.05 ml/m2 - Aortic Valve Name Value Normal Range LVOT diameter 1.63 cm - Tricuspid Valve Name Value Normal Range TR Vmax 2.56 m/sec - TR peak gradient 26 mmHg - RAP 3 mmHg - RVSP 29 mmHg - IVC diameter 1.83 cm (1.2 - 2.3) [place]/IV: Voiding Method Incontinent IV Catheter Type [Forearm] Peripheral IV IV Catheter Type [Left Forearm INT / Saline Lock ] IV Catheter Type [Right INT / Saline Lock Antecubital] IV Catheter Type [Right Hand] Peripheral IV IV Catheter Type [Right Wrist] Peripheral IV IV Catheter Type [Left Wrist] Peripheral IV IV Catheter Type [Left Peripheral IV Antecubital] IV Catheter Type [Right INT / Saline Lock Forearm] IV Catheter Type [Left Hand] INT / Saline Lock Active Medications - Current Medications Current Medications: Generic Name Dose Route Start Last Admin Trade Name Freq PRN Reason Stop Dose Admin Acetaminophen 650 mg 12/06/19 10:25 02/24/20 21:11 Tylenol FEEDTUBE 650 mg Q6H PRN Administration TEMP >/=100.3 Acetylcysteine 200 mg 02/16/20 20:00 03/07/20 21:56 Mucomyst Inhalation INHALATION 200 mg Q12HRT LUCHO Administration Alprazolam 1 mg 02/21/20 18:24 03/08/20 01:02 Xanax PO 1 mg Q8H PRN Administration Anxiety Lipase/Protease/Amylase 1 each 11/23/19 11:[address] 10,500 Unit FEEDTUBE PRN PRN Use w/ sod bicarb for FT Bisacodyl 10 mg 02/06/20 13:[address] QDAY PRN Constipation unrelieved by MOM Docusate Sodium 100 mg 02/18/20 22:00 03/07/20 22:31 Colace FEEDTUBE 100 mg BID LUCHO Administration Enoxaparin Sodium 40 mg 03/07/20 22:00 03/07/20 22:31 Enoxaparin SUB-Q 40 mg QDAY@2200 LUCHO Administration Glycopyrrolate 2 mg 12/31/19 20:00 03/07/20 22:31 Robinul PO 2 mg TID LUCHO Administration Haloperidol Lactate 5 mg 03/05/20 09:22 03/07/20 17:13 Haldol IM 5 mg Q6H PRN Administration Agitation Hydralazine HCl 10 mg 11/24/19 00:45 03/03/20 05:57 Apresoline IV 10 mg Q6H PRN Administration SBP > 160 Hydroxyzine Pamoate 25 mg 12/06/19 10:00 03/07/20 22:31 Vistaril PO 25 mg BID LUCHO Administration Lansoprazole 30 mg 11/27/19 10:00 03/07/20 09:43 Prevacid Solutab FEEDTUBE 30 mg QDAY LUCHO Administration Levalbuterol HCl 0.63 mg 02/17/20 00:00 03/08/20 01:08 Xopenex IH Not Given Q8HRT [facility] Levetiracetam 500 mg 11/29/19 10:00 03/07/20 22:31 Keppra PO 500 mg BID LUCHO Administration Metoprolol Tartrate 12.5 mg 02/23/20 22:00 03/07/20 22:31 Metoprolol PO 12.5 mg BID LUCHO Administration Mirtazapine 30 mg 12/06/19 10:00 03/07/20 09:42 Remeron PO 30 mg DAILY LUCHO Administration Nicotine 21 mg 02/16/20 13:00 03/07/20 09:42 Habitrol TD 21 mg QDAY LUCHO Administration Ondansetron HCl 4 mg 12/10/19 07:53 02/25/20 02:51 Zofran IV 4 mg Q4H PRN Administration Nausea And Vomiting Polyethylene Glycol 17 gm 02/06/20 13:57 Miralax 3350 PO QDAY PRN Constipation Quetiapine Fumarate 100 mg 03/06/20 10:00 03/07/20 22:32 Seroquel FEEDTUBE 100 mg BID LUCHO Administration Scopolamine 1 each 02/08/20 15:00 03/06/20 09:47 Transderm-Scop TD 1 each Q3D LUCHO Administration Sertraline HCl 25 mg 01/01/20 10:00 03/07/20 09:41 Zoloft PO 25 mg QDAY LUCHO Administration Simple Syrup 15 ml 11/23/19 11:50 Simple Syrup FEEDTUBE PRN PRN Hypoglycemia BG<70 Simple Syrup 30 ml 11/23/19 11:50 Simple Syrup FEEDTUBE PRN PRN Hypoglycemia Sodium Bicarbonate 325 mg 11/23/19 11:50 Sodium Bicarbonate FEEDTUBE PRN PRN For Clogged Feeding Tube Nutrition/Malnutrition Assess - Dietary Evaluation Nutrition/Malnutrition Findings: Nutrition Notes Start: 11/23/19 11:29 Freq: Status: Active Protocol: Document 03/07/20 12:40 LM (Rec: 03/07/20 12:48 LM [id number]) Nutrition Notes Initial or Follow up Reassessment Current Diagnosis Hypertension Other Pertinent Diagnosis Cardaic arrest, ETOH dependence, UTI Current Diet Jevity 1.2 at 60ml/hr Labs/Tests Reviewed Pertinent Medications Reviewed Height 5 ft 6 in Weight 46.7 kg [place] Body Weight (kg) 59.09 BMI 16.6 Subjective/Other Information Jevity running at goal and pt is tolerating. Percent of energy/protein needs met: 97%/100% Burn Absent Trauma Absent GI Symptoms None Current % PO Negligible Interpretation of Weight Loss (severe) >2% in 1 week Muscle Mass Mild Depletion (non-severe) #2 Nutrition Diagnosis Malnutrition Diagnosis Progress(for reassessment Improved documentation) #1 Nutrition Diagnosis Inadequate oral intake Diagnosis Progress(for reassessment Continues documentation) Is patient on ventilator? No Is Patient Ambulatory and/or Out of Bed No REE-([facility]-confined to bed) 1305.120 Kcal/Kg value to use for calculation 38 Approximate Energy Requirements Using 1775 kcal/Kg Calculation Used for Recommendations Kcal/kg Additional Notes Protein: 60-75g (1.2-1.5g/kg) Fluid: 1 ml/kcal Nutrition Intervention Change Diet Order: Continue TF Nutrition Support: Jevity 1.2 at 60ml/hr Flush 100ml q4h Kcal 1,728 Protein (gm) 80 Fluid (mL) 1,162 Goal #1 TF tolerance Goal #2 Meet at least 80% of energy and protein needs via TF Goal #3 Wt gain/maintenacne Anticipated Discharge Needs: TF Follow-Up By: 03/13/20 Additional Comments F/U for TF tolerance
[2020-03-08] MEDS: ACETYLCYSTEINE 20% 200 MG/1 ML *FOR INHALATION USE INHALATION SCH (08:41)
--- NOTE | 2020-03-08 09:57 | XRay Report ---
CHEST 1 VIEW INDICATION / CLINICAL INFORMATION: Respiratory failure, tracheostomy.. COMPARISON: 02/17/2020 FINDINGS: SUPPORT DEVICES: Tracheostomy tube appears unchanged HEART / MEDIASTINUM: Unchanged LUNGS / PLEURA: No significant pulmonary or pleural abnormality.. No pneumothorax. ADDITIONAL FINDINGS: No significant additional findings. IMPRESSION: 1. No significant change. Signer Name: John Christine MD Signed: 03/08/2020 9:53 AM Workstation Name: [id number]
--- NOTE | 2020-03-08 10:19 | Progress Note ---
Assessment and Plan Acute cardiopulmonary arrest with ROSC Acute hypoxemic respiratory failure s/p MVS s/p Tracheostomy Oropharyngeal dysphagia s/p PEG MRSA Bacteremia- treated MRSA pneumonia-treated Acute ugtdirorw-[id number] encephalopathy Metabolic acidosis/alcoholic acidosis/Lactic acidosis( resolved) Ischemic hepatitis Erythrocytosis Tobacco use disorder Alcohol use Disorder Plan to trial dexamethasone and short course of antibiotics for tracheitis in view of stridor and her inability to tolerate PMV Continue all current care as documented below Continue all supportive care Fall precautions, remains impulsive Discharge planning -CBC, BMP prn -Replace and correct electrolytes as indicated -Trach care, airway clearance, secretion management(continue scopolamine patch and Robinul) -CXR, ABG prn -Weaning trials as tolerated- PMV and capping as tolerated -Continue contact isolation for MRSA -Trend WCC and temperature curve -PT/OT -Supportive transfusions as indicated for HgB <7g/dL -Continue aspiration precautions, HOB>40 -Continue enteric nutritional support at goal rate. -Continue to monitor glycemic control, with target blood glucose 140-180 mg/dL while critically ill. -Avoid hypoglycemia - Continue to wean supplemental oxygen for target O2 sat's > 90% -Continue thiamine, multivitamin and electrolyte replacement -Continue to avoid nephrotoxins, adjust all medications for GFR and CrCL - Continue bronchodilators with pulmonary hygiene - Continue to maintain of sleep-wake cycle, avoid delirium - Continue mobility protocol and skin assessment per protocol for pressure ulcer prevention - Continue to monitor for clinical seizures - continue other care per attending / other consultants CONDITION: FAIR PROGNOSIS: FAIR CODE STATUS: DNAR Subjective Date of service: 03/08/20 Principal diagnosis: Ac cardiopulmonary arrest; Ac hypoxemic resp failure; Acute encephalopathy Interval history: Patient is seen today for: Acute cardiopulmonary arrest with ROSC; Acute hypoxemic respiratory failure; Acute metabolic-toxic encephalopathy; Ischemic hepatitis; Leucocytosis with lactic acidosis; Tobacco use disorder; Alcohol use Disorder; s/p tracheostomy; s/p PEG Seen and examined at bedside; 24hour events reviewed; nursing and respiratory c are staff consulted; no adverse overnight events reported to me; resting peacefully in bed; continues to tolerate ATP- ongoing secretions. No fevers, no vomiting, continues to tolerate tube feedings Awake and alert, responsive but episodes of confusion On placement of PMV she has stridorous noise Objective Vital Signs - 12hr 03/07/20 03/08/20 03/08/20 22:31 00:36 01:19 Temperature 99.0 F Pulse Rate 115 H 107 H Respiratory 22 Rate Blood Pressure 140/93 129/79 O2 Sat by Pulse 95 Oximetry O2 Sat by Pulse 98 Oximetry [ Assessment] 03/08/20 03/08/20 06:07 09:08 Temperature 97.8 F 98.4 F Pulse Rate 97 H 101 H Respiratory 22 18 Rate Blood Pressure 126/78 112/60 O2 Sat by Pulse 99 79 L Oximetry O2 Sat by Pulse Oximetry [ Assessment] Constitutional: no acute distress, alert, agitated Eyes: non-icteric ENT: oropharynx moist, other (s/p trach) Neck: supple, no lymphadenopathy, no JVD Effort: normal Ascultation: Bilateral: diminished breath sounds, rhonchi Percussion: Bilateral: not dull Cardiovascular: regular rate and rhythm (tachycardia), other (S1,S2) Gastrointestinal: normoactive bowel sounds, soft, non-tender, non-distended Integumentary: normal Extremities: no cyanosis, no edema, pulses normal, no ischemia or petechiae Neurologic: normal mental status, non-focal exam, pupils equal and round Psychiatric: mood appropriate, affect normal, anxious, other (Agitated) CBC and BMP: 03/06/20 03:37 03/06/20 03:37 ABG, PT/INR, D-dimer: ABG ABG pH 7.429 pH Units (7.350-7.450) 01/09/20 08:51 ABG pCO2 39.1 mm Hg 01/09/20 08:51 ABG pO2 94.3 mm Hg (80.0-90.0) H 01/09/20 08:51 ABG O2 Saturation 97.4 % (95.0-99.0) 01/09/20 08:51 PT/INR, D-dimer PT 17.0 Sec. (12.2-14.9) H 11/23/19 03:47 INR 1.36 (0.87-1.13) H 11/23/19 03:47 Abnormal lab findings: Abnormal Labs 11/22/19 11/22/19 11/22/19 23:17 23:18 23:27 WBC 21.2 H RBC 3.59 L Hgb 9.8 L Hct MCH 27 L RDW 18.6 H Plt Count 454 H Lymph % (Auto) [place] % (Auto) [place] # Baso # Seg Neutrophils % Seg Neuts % (Manual) 86.0 H Lymphocytes % (Manual) 9.0 L Monocytes % (Manual) Seg Neutrophils # Seg Neutrophils # Man 18.2 H Lymphocytes # (Manual) Monocytes # (Manual) 1.1 H Eosinophils # (Manual) Basophils # (Manual) PT INR APTT ABG pH ABG pO2 ABG HCO3 ABG O2 Saturation ABG Base Excess ABG Hemoglobin Oxyhemoglobin Sodium Potassium Chloride Carbon Dioxide BUN Creatinine Glucose POC Glucose 53 L Lactic Acid Calcium Ionized Calcium Phosphorus Magnesium Total Bilirubin AST ALT Alkaline Phosphatase Ammonia Total Creatine Kinase CK-MB (CK-2) CK-MB (CK-2) Rel Index Total Protein Albumin Urine WBC (Auto) 40.0 H Vancomycin Trough Salicylates Acetaminophen Plasma/Serum Alcohol Crossmatch 11/22/19 11/22/19 11/22/19 23:27 23:27 23:27 WBC RBC Hgb Hct MCH RDW Plt Count Lymph % (Auto) [place] % (Auto) [place] # Baso # Seg Neutrophils % Seg Neuts % (Manual) Lymphocytes % (Manual) Monocytes % (Manual) Seg Neutrophils # Seg Neutrophils # Man Lymphocytes # (Manual) Monocytes # (Manual) Eosinophils # (Manual) Basophils # (Manual) PT INR APTT ABG pH ABG pO2 ABG HCO3 ABG O2 Saturation ABG Base Excess ABG Hemoglobin Oxyhemoglobin Sodium Potassium 2.4 L* Chloride 85.1 L Carbon Dioxide 19 L BUN Creatinine 0.5 L Glucose 261 H POC Glucose Lactic Acid Calcium Ionized Calcium Phosphorus Magnesium Total Bilirubin AST 609 H ALT 152 H Alkaline Phosphatase 160 H Ammonia 117.0 H Total Creatine Kinase 139 H CK-MB (CK-2) 8.3 H CK-MB (CK-2) Rel Index 5.9 H Total Protein Albumin 3.6 L Urine WBC (Auto) Vancomycin Trough Salicylates < 0.3 L Acetaminophen Plasma/Serum Alcohol Crossmatch 11/22/19 11/22/19 11/23/19 23:27 23:27 01:10 WBC RBC Hgb Hct MCH RDW Plt Count Lymph % (Auto) [place] % (Auto) [place] # Baso # Seg Neutrophils % Seg Neuts % (Manual) Lymphocytes % (Manual) Monocytes % (Manual) Seg Neutrophils # Seg Neutrophils # Man Lymphocytes # (Manual) Monocytes # (Manual) Eosinophils # (Manual) Basophils # (Manual) PT INR APTT ABG pH 7.273 L ABG pO2 209.7 H ABG HCO3 ABG O2 Saturation 99.2 H ABG Base Excess -3.9 L ABG Hemoglobin 10.6 L Oxyhemoglobin 93.9 L Sodium Potassium Chloride Carbon Dioxide BUN Creatinine Glucose POC Glucose Lactic Acid Calcium Ionized Calcium Phosphorus Magnesium Total Bilirubin AST ALT Alkaline Phosphatase Ammonia Total Creatine Kinase CK-MB (CK-2) CK-MB (CK-2) Rel Index Total Protein Albumin Urine WBC (Auto) Vancomycin Trough Salicylates Acetaminophen < 5.0 L Plasma/Serum Alcohol 0.08 H Crossmatch 11/23/19 11/23/19 11/23/19 01:19 01:19 03:47 WBC RBC Hgb Hct MCH RDW Plt Count Lymph % (Auto) [place] % (Auto) [place] # Baso # Seg Neutrophils % Seg Neuts % (Manual) Lymphocytes % (Manual) Monocytes % (Manual) Seg Neutrophils # Seg Neutrophils # Man Lymphocytes # (Manual) Monocytes # (Manual) Eosinophils # (Manual) Basophils # (Manual) PT 16.3 H INR 1.29 H APTT ABG pH ABG pO2 ABG HCO3 ABG O2 Saturation ABG Base Excess ABG Hemoglobin Oxyhemoglobin Sodium Potassium Chloride Carbon Dioxide BUN Creatinine Glucose POC Glucose Lactic Acid 2.10 H* 5.00 H* Calcium Ionized Calcium Phosphorus Magnesium Total Bilirubin AST ALT Alkaline Phosphatase Ammonia Total Creatine Kinase CK-MB (CK-2) CK-MB (CK-2) Rel Index Total Protein Albumin Urine WBC (Auto) Vancomycin Trough Salicylates Acetaminophen Plasma/Serum Alcohol Crossmatch 11/23/19 11/23/19 11/23/19 03:47 03:47 04:53 WBC RBC Hgb 9.4 L Hct MCH RDW Plt Count Lymph % (Auto) [place] % (Auto) [place] # Baso # Seg Neutrophils % Seg Neuts % (Manual) Lymphocytes % (Manual) Monocytes % (Manual) Seg Neutrophils # Seg Neutrophils # Man Lymphocytes # (Manual) Monocytes # (Manual) Eosinophils # (Manual) Basophils # (Manual) PT 17.0 H INR 1.36 H APTT 128.2 H* ABG pH ABG pO2 ABG HCO3 ABG O2 Saturation ABG Base Excess ABG Hemoglobin Oxyhemoglobin Sodium Potassium Chloride Carbon Dioxide 18 L BUN Creatinine 0.5 L Glucose 105 H POC Glucose Lactic Acid Calcium 8.3 L Ionized Calcium Phosphorus 2.40 L Magnesium Total Bilirubin 1.30 H AST 761 H ALT 158 H Alkaline Phosphatase 143 H Ammonia Total Creatine Kinase CK-MB (CK-2) CK-MB (CK-2) Rel Index Total Protein Albumin 2.8 L Urine WBC (Auto) Vancomycin Trough Salicylates Acetaminophen Plasma/Serum Alcohol Crossmatch 11/23/19 11/23/19 11/23/19 05:12 06:32 06:32 WBC 16.8 H RBC 3.31 L Hgb 8.9 L Hct 28.7 L MCH 27 L RDW 18.6 H Plt Count Lymph % (Auto) [place] % (Auto) [place] # Baso # Seg Neutrophils % Seg Neuts % (Manual) 94.0 H Lymphocytes % (Manual) 1.0 L Monocytes % (Manual) Seg Neutrophils # Seg Neutrophils # Man 15.8 H Lymphocytes # (Manual) 0.2 L Monocytes # (Manual) Eosinophils # (Manual) Basophils # (Manual) PT INR APTT ABG pH ABG pO2 ABG HCO3 ABG O2 Saturation ABG Base Excess -3.2 L ABG Hemoglobin 9.0 L Oxyhemoglobin 93.6 L Sodium Potassium Chloride Carbon Dioxide BUN Creatinine Glucose POC Glucose Lactic Acid Calcium Ionized Calcium 4.5 L Phosphorus Magnesium Total Bilirubin AST ALT Alkaline Phosphatase Ammonia Total Creatine Kinase CK-MB (CK-2) CK-MB (CK-2) Rel Index Total Protein Albumin Urine WBC (Auto) Vancomycin Trough Salicylates Acetaminophen Plasma/Serum Alcohol Crossmatch 11/23/19 11/24/19 11/24/19 06:32 04:35 04:35 WBC RBC Hgb Hct MCH RDW Plt Count Lymph % (Auto) [place] % (Auto) [place] # Baso # Seg Neutrophils % Seg Neuts % (Manual) Lymphocytes % (Manual) Monocytes % (Manual) Seg Neutrophils # Seg Neutrophils # Man Lymphocytes # (Manual) Monocytes # (Manual) Eosinophils # (Manual) Basophils # (Manual) PT INR APTT ABG pH ABG pO2 ABG HCO3 ABG O2 Saturation ABG Base Excess ABG Hemoglobin Oxyhemoglobin Sodium Potassium Chloride Carbon Dioxide BUN Creatinine Glucose POC Glucose Lactic Acid 3.30 H* Calcium Ionized Calcium Phosphorus Magnesium 1.40 L Total Bilirubin AST ALT Alkaline Phosphatase Ammonia 98.0 H Total Creatine Kinase CK-MB (CK-2) CK-MB (CK-2) Rel Index Total Protein Albumin Urine WBC (Auto) Vancomycin Trough Salicylates Acetaminophen Plasma/Serum Alcohol Crossmatch 11/24/19 11/25/19 11/25/19 05:22 04:34 05:05 WBC 17.3 H RBC 2.88 L Hgb 7.8 L Hct 24.6 L MCH 27 L RDW 18.5 H Plt Count Lymph % (Auto) 7.7 L [place] % (Auto) 9.7 H [place] # 1.7 H Baso # Seg Neutrophils % 82.2 H Seg Neuts % (Manual) Lymphocytes % (Manual) Monocytes % (Manual) Seg Neutrophils # 14.2 H Seg Neutrophils # Man Lymphocytes # (Manual) Monocytes # (Manual) Eosinophils # (Manual) Basophils # (Manual) PT INR APTT ABG pH 7.475 H ABG pO2 ABG HCO3 29.4 H 32.3 H ABG O2 Saturation ABG Base Excess 5.4 H 6.9 H ABG Hemoglobin 9.0 L 10.6 L Oxyhemoglobin 94.3 L Sodium Potassium Chloride Carbon Dioxide BUN Creatinine Glucose POC Glucose Lactic Acid Calcium Ionized Calcium Phosphorus Magnesium Total Bilirubin AST ALT Alkaline Phosphatase Ammonia Total Creatine Kinase CK-MB (CK-2) CK-MB (CK-2) Rel Index Total Protein Albumin Urine WBC (Auto) Vancomycin Trough Salicylates Acetaminophen Plasma/Serum Alcohol Crossmatch 11/25/19 11/25/19 11/26/19 05:05 22:46 03:31 WBC RBC Hgb Hct MCH RDW Plt Count Lymph % (Auto) [place] % (Auto) [place] # Baso # Seg Neutrophils % Seg Neuts % (Manual) Lymphocytes % (Manual) Monocytes % (Manual) Seg Neutrophils # Seg Neutrophils # Man Lymphocytes # (Manual) Monocytes # (Manual) Eosinophils # (Manual) Basophils # (Manual) PT INR APTT ABG pH 7.459 H ABG pO2 ABG HCO3 34.2 H ABG O2 Saturation ABG Base Excess 9.4 H ABG Hemoglobin 7.6 L Oxyhemoglobin 94.8 L Sodium 152 H D 147 H Potassium 2.3 L* D 2.8 L* D Chloride 107.8 H Carbon Dioxide 31 H D 33 H BUN Creatinine 0.6 L 0.6 L Glucose 148 H 177 H POC Glucose Lactic Acid Calcium Ionized Calcium Phosphorus Magnesium Total Bilirubin AST 105 H ALT 71 H Alkaline Phosphatase 155 H Ammonia Total Creatine Kinase CK-MB (CK-2) CK-MB (CK-2) Rel Index Total Protein 5.2 L D Albumin 2.9 L Urine WBC (Auto) Vancomycin Trough Salicylates Acetaminophen Plasma/Serum Alcohol Crossmatch 11/26/19 11/26/19 11/27/19 08:24 08:24 04:20 WBC 12.0 H RBC 3.00 L Hgb 8.0 L 9.3 L Hct 25.9 L 29.7 L MCH 27 L RDW 18.5 H Plt Count Lymph % (Auto) [place] % (Auto) [place] # Baso # Seg Neutrophils % Seg Neuts % (Manual) 89.0 H Lymphocytes % (Manual) 4.0 L Monocytes % (Manual) Seg Neutrophils # Seg Neutrophils # Man 10.7 H Lymphocytes # (Manual) 0.5 L Monocytes # (Manual) Eosinophils # (Manual) Basophils # (Manual) PT INR APTT ABG pH ABG pO2 ABG HCO3 ABG O2 Saturation ABG Base Excess ABG Hemoglobin Oxyhemoglobin Sodium 146 H Potassium 3.4 L D Chloride Carbon Dioxide BUN Creatinine 0.5 L Glucose 165 H POC Glucose Lactic Acid Calcium Ionized Calcium Phosphorus Magnesium Total Bilirubin AST 57 H ALT Alkaline Phosphatase 166 H Ammonia Total Creatine Kinase CK-MB (CK-2) CK-MB (CK-2) Rel Index Total Protein Albumin 2.9 L Urine WBC (Auto) Vancomycin Trough Salicylates Acetaminophen Plasma/Serum Alcohol Crossmatch 11/27/19 11/27/19 11/27/19 04:28 04:28 04:42 WBC RBC Hgb Hct MCH RDW Plt Count Lymph % (Auto) [place] % (Auto) [place] # Baso # Seg Neutrophils % Seg Neuts % (Manual) Lymphocytes % (Manual) Monocytes % (Manual) Seg Neutrophils # Seg Neutrophils # Man Lymphocytes # (Manual) Monocytes # (Manual) Eosinophils # (Manual) Basophils # (Manual) PT INR APTT ABG pH 7.470 H ABG pO2 74.0 L ABG HCO3 33.8 H ABG O2 Saturation ABG Base Excess 9.1 H ABG Hemoglobin 8.7 L Oxyhemoglobin 94.7 L Sodium 146 H Potassium 2.9 L* Chloride Carbon Dioxide BUN 25 H Creatinine Glucose 213 H POC Glucose Lactic Acid Calcium Ionized Calcium Phosphorus 1.00 L Magnesium Total Bilirubin AST ALT Alkaline Phosphatase Ammonia Total Creatine Kinase CK-MB (CK-2) CK-MB (CK-2) Rel Index Total Protein Albumin Urine WBC (Auto) Vancomycin Trough Salicylates Acetaminophen Plasma/Serum Alcohol Crossmatch 11/27/19 11/27/19 11/27/19 05:37 12:20 15:46 WBC RBC Hgb Hct MCH RDW Plt Count Lymph % (Auto) [place] % (Auto) [place] # Baso # Seg Neutrophils % Seg Neuts % (Manual) Lymphocytes % (Manual) Monocytes % (Manual) Seg Neutrophils # Seg Neutrophils # Man Lymphocytes # (Manual) Monocytes # (Manual) Eosinophils # (Manual) Basophils # (Manual) PT INR APTT ABG pH ABG pO2 ABG HCO3 ABG O2 Saturation ABG Base Excess ABG Hemoglobin Oxyhemoglobin Sodium 146 H Potassium 3.5 L D Chloride Carbon Dioxide BUN 24 H Creatinine 0.6 L Glucose 187 H POC Glucose 117 H 220 H Lactic Acid Calcium Ionized Calcium Phosphorus Magnesium Total Bilirubin AST ALT Alkaline Phosphatase Ammonia Total Creatine Kinase CK-MB (CK-2) CK-MB (CK-2) Rel Index Total Protein Albumin Urine WBC (Auto) Vancomycin Trough Salicylates Acetaminophen Plasma/Serum Alcohol Crossmatch 11/27/19 11/28/19 11/28/19 17:28 05:00 05:02 WBC RBC Hgb Hct MCH RDW Plt Count Lymph % (Auto) [place] % (Auto) [place] # Baso # Seg Neutrophils % Seg Neuts % (Manual) Lymphocytes % (Manual) Monocytes % (Manual) Seg Neutrophils # Seg Neutrophils # Man Lymphocytes # (Manual) Monocytes # (Manual) Eosinophils # (Manual) Basophils # (Manual) PT INR APTT ABG pH ABG pO2 72.4 L ABG HCO3 33.6 H ABG O2 Saturation 94.1 L ABG Base Excess 7.3 H ABG Hemoglobin Oxyhemoglobin 91.8 L Sodium 146 H Potassium 3.3 L Chloride Carbon Dioxide BUN 25 H Creatinine 0.6 L Glucose 176 H POC Glucose 198 H Lactic Acid Calcium Ionized Calcium Phosphorus Magnesium Total Bilirubin AST ALT Alkaline Phosphatase Ammonia Total Creatine Kinase CK-MB (CK-2) CK-MB (CK-2) Rel Index Total Protein Albumin Urine WBC (Auto) Vancomycin Trough Salicylates Acetaminophen Plasma/Serum Alcohol Crossmatch 11/28/19 11/28/19 11/29/19 05:02 18:55 10:43 WBC 15.2 H 19.0 H RBC 3.06 L 3.01 L Hgb 8.3 L 8.3 L Hct 27.0 L 26.4 L MCH 27 L RDW 19.0 H 19.7 H Plt Count 479 H 611 H Lymph % (Auto) [place] % (Auto) [place] # Baso # Seg Neutrophils % Seg Neuts % (Manual) 92.0 H Lymphocytes % (Manual) 2.0 L Monocytes % (Manual) Seg Neutrophils # Seg Neutrophils # Man 14.0 H Lymphocytes # (Manual) 0.3 L Monocytes # (Manual) Eosinophils # (Manual) Basophils # (Manual) PT INR APTT ABG pH ABG pO2 ABG HCO3 ABG O2 Saturation ABG Base Excess ABG Hemoglobin Oxyhemoglobin Sodium Potassium Chloride Carbon Dioxide BUN Creatinine Glucose POC Glucose 138 H Lactic Acid Calcium Ionized Calcium Phosphorus Magnesium Total Bilirubin AST ALT Alkaline Phosphatase Ammonia Total Creatine Kinase CK-MB (CK-2) CK-MB (CK-2) Rel Index Total Protein Albumin Urine WBC (Auto) Vancomycin Trough Salicylates Acetaminophen Plasma/Serum Alcohol Crossmatch 11/29/19 11/29/19 11/29/19 10:43 12:27 19:25 WBC RBC Hgb Hct MCH RDW Plt Count Lymph % (Auto) [place] % (Auto) [place] # Baso # Seg Neutrophils % Seg Neuts % (Manual) Lymphocytes % (Manual) Monocytes % (Manual) Seg Neutrophils # Seg Neutrophils # Man Lymphocytes # (Manual) Monocytes # (Manual) Eosinophils # (Manual) Basophils # (Manual) PT INR APTT ABG pH ABG pO2 ABG HCO3 ABG O2 Saturation ABG Base Excess ABG Hemoglobin Oxyhemoglobin Sodium Potassium 2.8 L* Chloride Carbon Dioxide BUN 20 H Creatinine 0.5 L Glucose 121 H POC Glucose 128 H 120 H Lactic Acid Calcium Ionized Calcium Phosphorus Magnesium Total Bilirubin AST ALT Alkaline Phosphatase Ammonia Total Creatine Kinase CK-MB (CK-2) CK-MB (CK-2) Rel Index Total Protein Albumin Urine WBC (Auto) Vancomycin Trough Salicylates Acetaminophen Plasma/Serum Alcohol Crossmatch 11/29/19 11/30/19 11/30/19 23:46 04:10 05:02 WBC RBC Hgb Hct MCH RDW Plt Count Lymph % (Auto) [place] % (Auto) [place] # Baso # Seg Neutrophils % Seg Neuts % (Manual) Lymphocytes % (Manual) Monocytes % (Manual) Seg Neutrophils # Seg Neutrophils # Man Lymphocytes # (Manual) Monocytes # (Manual) Eosinophils # (Manual) Basophils # (Manual) PT INR APTT ABG pH ABG pO2 76.3 L ABG HCO3 32.5 H ABG O2 Saturation ABG Base Excess 6.9 H ABG Hemoglobin 8.0 L Oxyhemoglobin 92.6 L Sodium Potassium Chloride Carbon Dioxide BUN Creatinine Glucose POC Glucose 116 H 128 H Lactic Acid Calcium Ionized Calcium Phosphorus Magnesium Total Bilirubin AST ALT Alkaline Phosphatase Ammonia Total Creatine Kinase CK-MB (CK-2) CK-MB (CK-2) Rel Index Total Protein Albumin Urine WBC (Auto) Vancomycin Trough Salicylates Acetaminophen Plasma/Serum Alcohol Crossmatch 11/30/19 11/30/19 11/30/19 05:25 05:25 12:59 WBC 18.4 H RBC 3.10 L Hgb 8.5 L Hct 27.5 L MCH 27 L RDW 20.9 H Plt Count 691 H Lymph % (Auto) 7.1 L [place] % (Auto) 7.7 H [place] # 1.4 H Baso # Seg Neutrophils % 83.4 H Seg Neuts % (Manual) Lymphocytes % (Manual) Monocytes % (Manual) Seg Neutrophils # 15.4 H Seg Neutrophils # Man Lymphocytes # (Manual) Monocytes # (Manual) Eosinophils # (Manual) Basophils # (Manual) PT INR APTT ABG pH ABG pO2 ABG HCO3 ABG O2 Saturation ABG Base Excess ABG Hemoglobin Oxyhemoglobin Sodium 146 H Potassium Chloride 107.2 H Carbon Dioxide BUN Creatinine 0.5 L Glucose 132 H POC Glucose 124 H Lactic Acid Calcium Ionized Calcium Phosphorus Magnesium Total Bilirubin AST 246 H ALT 274 H Alkaline Phosphatase 203 H Ammonia Total Creatine Kinase CK-MB (CK-2) CK-MB (CK-2) Rel Index Total Protein 5.4 L Albumin 2.9 L Urine WBC (Auto) Vancomycin Trough Salicylates Acetaminophen Plasma/Serum Alcohol Crossmatch 11/30/19 12/01/19 12/01/19 17:53 00:05 05:10 WBC RBC Hgb Hct MCH RDW Plt Count Lymph % (Auto) [place] % (Auto) [place] # Baso # Seg Neutrophils % Seg Neuts % (Manual) Lymphocytes % (Manual) Monocytes % (Manual) Seg Neutrophils # Seg Neutrophils # Man Lymphocytes # (Manual) Monocytes # (Manual) Eosinophils # (Manual) Basophils # (Manual) PT INR APTT ABG pH ABG pO2 ABG HCO3 ABG O2 Saturation ABG Base Excess ABG Hemoglobin Oxyhemoglobin Sodium Potassium Chloride Carbon Dioxide BUN Creatinine Glucose POC Glucose 113 H 143 H 145 H Lactic Acid Calcium Ionized Calcium Phosphorus Magnesium Total Bilirubin AST ALT Alkaline Phosphatase Ammonia Total Creatine Kinase CK-MB (CK-2) CK-MB (CK-2) Rel Index Total Protein Albumin Urine WBC (Auto) Vancomycin Trough Salicylates Acetaminophen Plasma/Serum Alcohol Crossmatch 12/01/19 12/01/19 12/01/19 05:33 08:23 08:23 WBC 22.7 H RBC 2.88 L Hgb 7.9 L Hct 25.2 L MCH 27 L RDW 21.0 H Plt Count 732 H Lymph % (Auto) [place] % (Auto) [place] # Baso # Seg Neutrophils % Seg Neuts % (Manual) 91.0 H Lymphocytes % (Manual) 3.0 L Monocytes % (Manual) Seg Neutrophils # Seg Neutrophils # Man 20.7 H Lymphocytes # (Manual) 0.7 L Monocytes # (Manual) 1.1 H Eosinophils # (Manual) Basophils # (Manual) PT INR APTT ABG pH ABG pO2 68.6 L ABG HCO3 34.1 H ABG O2 Saturation ABG Base Excess 9.0 H ABG Hemoglobin 6.5 L Oxyhemoglobin 94.7 L Sodium Potassium Chloride Carbon Dioxide BUN Creatinine 0.5 L Glucose 125 H POC Glucose Lactic Acid Calcium Ionized Calcium Phosphorus Magnesium Total Bilirubin AST ALT Alkaline Phosphatase Ammonia Total Creatine Kinase CK-MB (CK-2) CK-MB (CK-2) Rel Index Total Protein Albumin Urine WBC (Auto) Vancomycin Trough Salicylates Acetaminophen Plasma/Serum Alcohol Crossmatch 12/01/19 12/01/19 12/01/19 13:21 17:54 20:59 WBC RBC Hgb Hct MCH RDW Plt Count Lymph % (Auto) [place] % (Auto) [place] # Baso # Seg Neutrophils % Seg Neuts % (Manual) Lymphocytes % (Manual) Monocytes % (Manual) Seg Neutrophils # Seg Neutrophils # Man Lymphocytes # (Manual) Monocytes # (Manual) Eosinophils # (Manual) Basophils # (Manual) PT INR APTT ABG pH ABG pO2 78.3 L ABG HCO3 33.8 H ABG O2 Saturation 94.9 L ABG Base Excess 7.9 H ABG Hemoglobin 11.5 L Oxyhemoglobin 92.3 L Sodium Potassium Chloride Carbon Dioxide BUN Creatinine Glucose POC Glucose 111 H 115 H Lactic Acid Calcium Ionized Calcium Phosphorus Magnesium Total Bilirubin AST ALT Alkaline Phosphatase Ammonia Total Creatine Kinase CK-MB (CK-2) CK-MB (CK-2) Rel Index Total Protein Albumin Urine WBC (Auto) Vancomycin Trough Salicylates Acetaminophen Plasma/Serum Alcohol Crossmatch 12/02/19 12/03/19 12/04/19 12:55 20:00 04:26 WBC 15.2 H RBC 2.69 L Hgb 7.4 L Hct 23.6 L MCH 27 L RDW 19.9 H Plt Count 838 H Lymph % (Auto) [place] % (Auto) [place] # Baso # Seg Neutrophils % Seg Neuts % (Manual) Lymphocytes % (Manual) Monocytes % (Manual) Seg Neutrophils # Seg Neutrophils # Man Lymphocytes # (Manual) Monocytes # (Manual) Eosinophils # (Manual) Basophils # (Manual) PT INR APTT ABG pH ABG pO2 68.3 L ABG HCO3 33.5 H ABG O2 Saturation 93.5 L ABG Base Excess 8.4 H ABG Hemoglobin 7.3 L Oxyhemoglobin 90.9 L Sodium Potassium Chloride Carbon Dioxide BUN Creatinine Glucose POC Glucose 107 H Lactic Acid Calcium Ionized Calcium Phosphorus Magnesium Total Bilirubin AST ALT Alkaline Phosphatase Ammonia Total Creatine Kinase CK-MB (CK-2) CK-MB (CK-2) Rel Index Total Protein Albumin Urine WBC (Auto) Vancomycin Trough Salicylates Acetaminophen Plasma/Serum Alcohol Crossmatch 12/04/19 12/04/19 12/04/19 04:26 07:45 12:02 WBC 15.9 H RBC 2.88 L Hgb 7.9 L Hct 25.1 L MCH RDW 20.4 H Plt Count 839 H Lymph % (Auto) 11.3 L [place] % (Auto) 15.2 H [place] # 2.4 H Baso # Seg Neutrophils % 72.4 H Seg Neuts % (Manual) Lymphocytes % (Manual) Monocytes % (Manual) Seg Neutrophils # 11.5 H Seg Neutrophils # Man Lymphocytes # (Manual) Monocytes # (Manual) Eosinophils # (Manual) Basophils # (Manual) PT INR APTT ABG pH ABG pO2 ABG HCO3 ABG O2 Saturation ABG Base Excess ABG Hemoglobin Oxyhemoglobin Sodium Potassium Chloride 96.5 L Carbon Dioxide BUN 21 H Creatinine 0.6 L Glucose 107 H POC Glucose 138 H Lactic Acid Calcium Ionized Calcium Phosphorus Magnesium Total Bilirubin AST ALT Alkaline Phosphatase Ammonia Total Creatine Kinase CK-MB (CK-2) CK-MB (CK-2) Rel Index Total Protein Albumin Urine WBC (Auto) Vancomycin Trough Salicylates Acetaminophen Plasma/Serum Alcohol Crossmatch 12/04/19 12/05/19 12/05/19 18:16 11:55 18:36 WBC RBC Hgb Hct MCH RDW Plt Count Lymph % (Auto) [place] % (Auto) [place] # Baso # Seg Neutrophils % Seg Neuts % (Manual) Lymphocytes % (Manual) Monocytes % (Manual) Seg Neutrophils # Seg Neutrophils # Man Lymphocytes # (Manual) Monocytes # (Manual) Eosinophils # (Manual) Basophils # (Manual) PT INR APTT ABG pH ABG pO2 ABG HCO3 ABG O2 Saturation ABG Base Excess ABG Hemoglobin Oxyhemoglobin Sodium Potassium Chloride Carbon Dioxide BUN Creatinine Glucose POC Glucose 135 H 125 H 135 H Lactic Acid Calcium Ionized Calcium Phosphorus Magnesium Total Bilirubin AST ALT Alkaline Phosphatase Ammonia Total Creatine Kinase CK-MB (CK-2) CK-MB (CK-2) Rel Index Total Protein Albumin Urine WBC (Auto) Vancomycin Trough Salicylates Acetaminophen Plasma/Serum Alcohol Crossmatch 12/05/19 12/06/19 12/06/19 23:30 04:14 05:43 WBC RBC Hgb Hct MCH RDW Plt Count Lymph % (Auto) [place] % (Auto) [place] # Baso # Seg Neutrophils % Seg Neuts % (Manual) Lymphocytes % (Manual) Monocytes % (Manual) Seg Neutrophils # Seg Neutrophils # Man Lymphocytes # (Manual) Monocytes # (Manual) Eosinophils # (Manual) Basophils # (Manual) PT INR APTT ABG pH ABG pO2 ABG HCO3 ABG O2 Saturation ABG Base Excess ABG Hemoglobin Oxyhemoglobin Sodium Potassium 5.6 H Chloride 95.0 L Carbon Dioxide BUN 48 H Creatinine 1.3 H D Glucose POC Glucose 126 H 121 H Lactic Acid Calcium Ionized Calcium Phosphorus Magnesium Total Bilirubin AST 89 H ALT 98 H Alkaline Phosphatase 476 H Ammonia Total Creatine Kinase CK-MB (CK-2) CK-MB (CK-2) Rel Index Total Protein Albumin 2.8 L Urine WBC (Auto) Vancomycin Trough Salicylates Acetaminophen Plasma/Serum Alcohol Crossmatch 12/06/19 12/06/19 12/07/19 10:39 14:34 00:19 WBC 17.3 H RBC 2.60 L Hgb 7.1 L Hct 22.7 L MCH 27 L RDW 20.1 H Plt Count 832 H Lymph % (Auto) [place] % (Auto) [place] # Baso # Seg Neutrophils % Seg Neuts % (Manual) Lymphocytes % (Manual) Monocytes % (Manual) Seg Neutrophils # Seg Neutrophils # Man Lymphocytes # (Manual) Monocytes # (Manual) Eosinophils # (Manual) Basophils # (Manual) PT INR APTT ABG pH ABG pO2 ABG HCO3 ABG O2 Saturation ABG Base Excess ABG Hemoglobin Oxyhemoglobin Sodium Potassium Chloride Carbon Dioxide BUN Creatinine Glucose POC Glucose 128 H 136 H Lactic Acid Calcium Ionized Calcium Phosphorus Magnesium Total Bilirubin AST ALT Alkaline Phosphatase Ammonia Total Creatine Kinase CK-MB (CK-2) CK-MB (CK-2) Rel Index Total Protein Albumin Urine WBC (Auto) Vancomycin Trough Salicylates Acetaminophen Plasma/Serum Alcohol Crossmatch 12/07/19 12/07/19 12/07/19 03:44 03:44 05:53 WBC 16.2 H RBC 2.56 L Hgb 7.1 L Hct 22.3 L MCH RDW 19.4 H Plt Count 782 H Lymph % (Auto) [place] % (Auto) [place] # Baso # Seg Neutrophils % Seg Neuts % (Manual) Lymphocytes % (Manual) Monocytes % (Manual) Seg Neutrophils # Seg Neutrophils # Man Lymphocytes # (Manual) Monocytes # (Manual) Eosinophils # (Manual) Basophils # (Manual) PT INR APTT ABG pH ABG pO2 ABG HCO3 ABG O2 Saturation ABG Base Excess ABG Hemoglobin Oxyhemoglobin Sodium Potassium Chloride 95.6 L Carbon Dioxide BUN 56 H Creatinine 1.4 H Glucose 120 H POC Glucose 128 H Lactic Acid Calcium 10.3 H Ionized Calcium Phosphorus Magnesium Total Bilirubin AST ALT Alkaline Phosphatase Ammonia Total Creatine Kinase CK-MB (CK-2) CK-MB (CK-2) Rel Index Total Protein Albumin Urine WBC (Auto) Vancomycin Trough Salicylates Acetaminophen Plasma/Serum Alcohol Crossmatch 12/07/19 12/07/19 12/08/19 12:54 23:47 00:20 WBC RBC Hgb Hct MCH RDW Plt Count Lymph % (Auto) [place] % (Auto) [place] # Baso # Seg Neutrophils % Seg Neuts % (Manual) Lymphocytes % (Manual) Monocytes % (Manual) Seg Neutrophils # Seg Neutrophils # Man Lymphocytes # (Manual) Monocytes # (Manual) Eosinophils # (Manual) Basophils # (Manual) PT INR APTT ABG pH ABG pO2 ABG HCO3 ABG O2 Saturation ABG Base Excess ABG Hemoglobin Oxyhemoglobin Sodium Potassium Chloride Carbon Dioxide BUN Creatinine Glucose POC Glucose 128 H 130 H 124 H Lactic Acid Calcium Ionized Calcium Phosphorus Magnesium Total Bilirubin AST ALT Alkaline Phosphatase Ammonia Total Creatine Kinase CK-MB (CK-2) CK-MB (CK-2) Rel Index Total Protein Albumin Urine WBC (Auto) Vancomycin Trough Salicylates Acetaminophen Plasma/Serum Alcohol Crossmatch 12/08/19 12/08/19 12/08/19 06:38 12:04 18:26 WBC RBC Hgb Hct MCH RDW Plt Count Lymph % (Auto) [place] % (Auto) [place] # Baso # Seg Neutrophils % Seg Neuts % (Manual) Lymphocytes % (Manual) Monocytes % (Manual) Seg Neutrophils # Seg Neutrophils # Man Lymphocytes # (Manual) Monocytes # (Manual) Eosinophils # (Manual) Basophils # (Manual) PT INR APTT ABG pH ABG pO2 ABG HCO3 ABG O2 Saturation ABG Base Excess ABG Hemoglobin Oxyhemoglobin Sodium Potassium Chloride Carbon Dioxide BUN Creatinine Glucose POC Glucose 137 H 129 H 150 H Lactic Acid Calcium Ionized Calcium Phosphorus Magnesium Total Bilirubin AST ALT Alkaline Phosphatase Ammonia Total Creatine Kinase CK-MB (CK-2) CK-MB (CK-2) Rel Index Total Protein Albumin Urine WBC (Auto) Vancomycin Trough Salicylates Acetaminophen Plasma/Serum Alcohol Crossmatch 12/09/19 12/09/19 12/09/19 00:56 05:34 06:13 WBC RBC Hgb Hct MCH RDW Plt Count Lymph % (Auto) [place] % (Auto) [place] # Baso # Seg Neutrophils % Seg Neuts % (Manual) Lymphocytes % (Manual) Monocytes % (Manual) Seg Neutrophils # Seg Neutrophils # Man Lymphocytes # (Manual) Monocytes # (Manual) Eosinophils # (Manual) Basophils # (Manual) PT INR APTT ABG pH ABG pO2 ABG HCO3 ABG O2 Saturation ABG Base Excess ABG Hemoglobin Oxyhemoglobin Sodium 146 H Potassium Chloride Carbon Dioxide BUN 66 H Creatinine 1.9 H Glucose 116 H POC Glucose 130 H 130 H Lactic Acid Calcium Ionized Calcium Phosphorus Magnesium Total Bilirubin AST ALT Alkaline Phosphatase Ammonia Total Creatine Kinase CK-MB (CK-2) CK-MB (CK-2) Rel Index Total Protein Albumin Urine WBC (Auto) Vancomycin Trough Salicylates Acetaminophen Plasma/Serum Alcohol Crossmatch 12/09/19 12/09/19 12/10/19 11:52 17:50 00:14 WBC RBC Hgb Hct MCH RDW Plt Count Lymph % (Auto) [place] % (Auto) [place] # Baso # Seg Neutrophils % Seg Neuts % (Manual) Lymphocytes % (Manual) Monocytes % (Manual) Seg Neutrophils # Seg Neutrophils # Man Lymphocytes # (Manual) Monocytes # (Manual) Eosinophils # (Manual) Basophils # (Manual) PT INR APTT ABG pH ABG pO2 ABG HCO3 ABG O2 Saturation ABG Base Excess ABG Hemoglobin Oxyhemoglobin Sodium Potassium Chloride Carbon Dioxide BUN Creatinine Glucose POC Glucose 135 H 120 H 116 H Lactic Acid Calcium Ionized Calcium Phosphorus Magnesium Total Bilirubin AST ALT Alkaline Phosphatase Ammonia Total Creatine Kinase CK-MB (CK-2) CK-MB (CK-2) Rel Index Total Protein Albumin Urine WBC (Auto) Vancomycin Trough Salicylates Acetaminophen Plasma/Serum Alcohol Crossmatch 12/10/19 12/10/19 12/10/19 05:38 11:38 17:34 WBC RBC Hgb Hct MCH RDW Plt Count Lymph % (Auto) [place] % (Auto) [place] # Baso # Seg Neutrophils % Seg Neuts % (Manual) Lymphocytes % (Manual) Monocytes % (Manual) Seg Neutrophils # Seg Neutrophils # Man Lymphocytes # (Manual) Monocytes # (Manual) Eosinophils # (Manual) Basophils # (Manual) PT INR APTT ABG pH ABG pO2 ABG HCO3 ABG O2 Saturation ABG Base Excess ABG Hemoglobin Oxyhemoglobin Sodium Potassium Chloride Carbon Dioxide BUN Creatinine Glucose POC Glucose 115 H 112 H 130 H Lactic Acid Calcium Ionized Calcium Phosphorus Magnesium Total Bilirubin AST ALT Alkaline Phosphatase Ammonia Total Creatine Kinase CK-MB (CK-2) CK-MB (CK-2) Rel Index Total Protein Albumin Urine WBC (Auto) Vancomycin Trough Salicylates Acetaminophen Plasma/Serum Alcohol Crossmatch 12/11/19 12/11/19 12/11/19 00:20 05:31 12:22 WBC RBC Hgb Hct MCH RDW Plt Count Lymph % (Auto) [place] % (Auto) [place] # Baso # Seg Neutrophils % Seg Neuts % (Manual) Lymphocytes % (Manual) Monocytes % (Manual) Seg Neutrophils # Seg Neutrophils # Man Lymphocytes # (Manual) Monocytes # (Manual) Eosinophils # (Manual) Basophils # (Manual) PT INR APTT ABG pH ABG pO2 ABG HCO3 ABG O2 Saturation ABG Base Excess ABG Hemoglobin Oxyhemoglobin Sodium Potassium Chloride Carbon Dioxide BUN Creatinine Glucose POC Glucose 124 H 132 H 128 H Lactic Acid Calcium Ionized Calcium Phosphorus Magnesium Total Bilirubin AST ALT Alkaline Phosphatase Ammonia Total Creatine Kinase CK-MB (CK-2) CK-MB (CK-2) Rel Index Total Protein Albumin Urine WBC (Auto) Vancomycin Trough Salicylates Acetaminophen Plasma/Serum Alcohol Crossmatch 12/11/19 12/11/19 12/12/19 18:04 23:42 03:51 WBC RBC Hgb Hct MCH RDW Plt Count Lymph % (Auto) [place] % (Auto) [place] # Baso # Seg Neutrophils % Seg Neuts % (Manual) Lymphocytes % (Manual) Monocytes % (Manual) Seg Neutrophils # Seg Neutrophils # Man Lymphocytes # (Manual) Monocytes # (Manual) Eosinophils # (Manual) Basophils # (Manual) PT INR APTT ABG pH ABG pO2 ABG HCO3 ABG O2 Saturation ABG Base Excess ABG Hemoglobin Oxyhemoglobin Sodium 149 H Potassium Chloride Carbon Dioxide 20 L D BUN 77 H Creatinine 2.8 H Glucose POC Glucose 133 H 154 H Lactic Acid Calcium Ionized Calcium Phosphorus Magnesium Total Bilirubin AST ALT Alkaline Phosphatase Ammonia Total Creatine Kinase CK-MB (CK-2) CK-MB (CK-2) Rel Index Total Protein Albumin Urine WBC (Auto) Vancomycin Trough Salicylates Acetaminophen Plasma/Serum Alcohol Crossmatch 12/12/19 12/12/19 12/12/19 05:18 05:26 10:30 WBC 18.0 H RBC 2.51 L Hgb 6.8 L Hct 22.0 L MCH 27 L RDW 19.9 H Plt Count 582 H Lymph % (Auto) [place] % (Auto) [place] # Baso # Seg Neutrophils % Seg Neuts % (Manual) Lymphocytes % (Manual) Monocytes % (Manual) Seg Neutrophils # Seg Neutrophils # Man Lymphocytes # (Manual) Monocytes # (Manual) Eosinophils # (Manual) Basophils # (Manual) PT INR APTT ABG pH ABG pO2 ABG HCO3 ABG O2 Saturation ABG Base Excess ABG Hemoglobin Oxyhemoglobin Sodium Potassium Chloride Carbon Dioxide BUN Creatinine Glucose POC Glucose 135 H Lactic Acid Calcium Ionized Calcium Phosphorus Magnesium Total Bilirubin AST ALT Alkaline Phosphatase Ammonia Total Creatine Kinase CK-MB (CK-2) CK-MB (CK-2) Rel Index Total Protein Albumin Urine WBC (Auto) Vancomycin Trough Salicylates Acetaminophen Plasma/Serum Alcohol Crossmatch See Detail 12/12/19 12/12/19 12/12/19 11:44 18:10 23:21 WBC RBC Hgb Hct MCH RDW Plt Count Lymph % (Auto) [place] % (Auto) [place] # Baso # Seg Neutrophils % Seg Neuts % (Manual) Lymphocytes % (Manual) Monocytes % (Manual) Seg Neutrophils # Seg Neutrophils # Man Lymphocytes # (Manual) Monocytes # (Manual) Eosinophils # (Manual) Basophils # (Manual) PT INR APTT ABG pH ABG pO2 ABG HCO3 ABG O2 Saturation ABG Base Excess ABG Hemoglobin Oxyhemoglobin Sodium Potassium Chloride Carbon Dioxide BUN Creatinine Glucose POC Glucose 108 H 107 H 126 H Lactic Acid Calcium Ionized Calcium Phosphorus Magnesium Total Bilirubin AST ALT Alkaline Phosphatase Ammonia Total Creatine Kinase CK-MB (CK-2) CK-MB (CK-2) Rel Index Total Protein Albumin Urine WBC (Auto) Vancomycin Trough Salicylates Acetaminophen Plasma/Serum Alcohol Crossmatch 12/13/19 12/13/19 12/13/19 05:41 07:48 07:48 WBC 38.3 H RBC 2.37 L Hgb 6.3 L Hct 20.9 L MCH 27 L RDW 20.2 H Plt Count 546 H Lymph % (Auto) [place] % (Auto) [place] # Baso # Seg Neutrophils % Seg Neuts % (Manual) 93.0 H Lymphocytes % (Manual) 1.0 L Monocytes % (Manual) Seg Neutrophils # Seg Neutrophils # Man 35.6 H Lymphocytes # (Manual) 0.4 L Monocytes # (Manual) Eosinophils # (Manual) Basophils # (Manual) 0.4 H PT INR APTT ABG pH ABG pO2 ABG HCO3 ABG O2 Saturation ABG Base Excess ABG Hemoglobin Oxyhemoglobin Sodium 152 H Potassium 3.1 L D Chloride 111.9 H Carbon Dioxide 21 L BUN 53 H Creatinine 1.9 H Glucose 141 H POC Glucose 128 H Lactic Acid Calcium Ionized Calcium Phosphorus Magnesium Total Bilirubin AST ALT Alkaline Phosphatase 316 H Ammonia Total Creatine Kinase CK-MB (CK-2) CK-MB (CK-2) Rel Index Total Protein Albumin 2.4 L Urine WBC (Auto) Vancomycin Trough Salicylates Acetaminophen Plasma/Serum Alcohol Crossmatch 12/13/19 12/13/19 12/14/19 18:17 23:19 05:36 WBC RBC Hgb Hct MCH RDW Plt Count Lymph % (Auto) [place] % (Auto) [place] # Baso # Seg Neutrophils % Seg Neuts % (Manual) Lymphocytes % (Manual) Monocytes % (Manual) Seg Neutrophils # Seg Neutrophils # Man Lymphocytes # (Manual) Monocytes # (Manual) Eosinophils # (Manual) Basophils # (Manual) PT INR APTT ABG pH ABG pO2 ABG HCO3 ABG O2 Saturation ABG Base Excess ABG Hemoglobin Oxyhemoglobin Sodium Potassium Chloride Carbon Dioxide BUN Creatinine Glucose POC Glucose 141 H 158 H 182 H Lactic Acid Calcium Ionized Calcium Phosphorus Magnesium Total Bilirubin AST ALT Alkaline Phosphatase Ammonia Total Creatine Kinase CK-MB (CK-2) CK-MB (CK-2) Rel Index Total Protein Albumin Urine WBC (Auto) Vancomycin Trough Salicylates Acetaminophen Plasma/Serum Alcohol Crossmatch 12/14/19 12/14/19 12/14/19 08:48 08:48 10:31 WBC 33.3 H RBC 2.70 L Hgb 7.9 L 8.0 L Hct 25.3 L 24.0 L MCH RDW 19.2 H Plt Count 476 H Lymph % (Auto) [place] % (Auto) [place] # Baso # Seg Neutrophils % Seg Neuts % (Manual) Lymphocytes % (Manual) Monocytes % (Manual) Seg Neutrophils # Seg Neutrophils # Man Lymphocytes # (Manual) Monocytes # (Manual) Eosinophils # (Manual) Basophils # (Manual) PT INR APTT ABG pH ABG pO2 ABG HCO3 ABG O2 Saturation ABG Base Excess ABG Hemoglobin Oxyhemoglobin Sodium 153 H Potassium 2.5 L* Chloride 114.9 H Carbon Dioxide 20 L BUN 38 H Creatinine 1.4 H Glucose 177 H POC Glucose Lactic Acid Calcium Ionized Calcium Phosphorus Magnesium Total Bilirubin AST ALT Alkaline Phosphatase Ammonia Total Creatine Kinase CK-MB (CK-2) CK-MB (CK-2) Rel Index Total Protein Albumin Urine WBC (Auto) Vancomycin Trough Salicylates Acetaminophen Plasma/Serum Alcohol Crossmatch 12/14/19 12/14/19 12/14/19 12:57 16:15 17:50 WBC RBC Hgb Hct MCH RDW Plt Count Lymph % (Auto) [place] % (Auto) [place] # Baso # Seg Neutrophils % Seg Neuts % (Manual) Lymphocytes % (Manual) Monocytes % (Manual) Seg Neutrophils # Seg Neutrophils # Man Lymphocytes # (Manual) Monocytes # (Manual) Eosinophils # (Manual) Basophils # (Manual) PT INR APTT ABG pH ABG pO2 73.6 L ABG HCO3 ABG O2 Saturation ABG Base Excess ABG Hemoglobin 7.6 L Oxyhemoglobin 94.0 L Sodium Potassium Chloride Carbon Dioxide BUN Creatinine Glucose POC Glucose 174 H 150 H Lactic Acid Calcium Ionized Calcium Phosphorus Magnesium Total Bilirubin AST ALT Alkaline Phosphatase Ammonia Total Creatine Kinase CK-MB (CK-2) CK-MB (CK-2) Rel Index Total Protein Albumin Urine WBC (Auto) Vancomycin Trough Salicylates Acetaminophen Plasma/Serum Alcohol Crossmatch 12/15/19 12/15/19 12/15/19 00:28 05:27 07:23 WBC 30.0 H RBC 3.11 L Hgb 8.6 L Hct 27.7 L MCH RDW 20.0 H Plt Count 473 H Lymph % (Auto) [place] % (Auto) [place] # Baso # Seg Neutrophils % Seg Neuts % (Manual) Lymphocytes % (Manual) Monocytes % (Manual) Seg Neutrophils # Seg Neutrophils # Man Lymphocytes # (Manual) Monocytes # (Manual) Eosinophils # (Manual) Basophils # (Manual) PT INR APTT ABG pH ABG pO2 ABG HCO3 ABG O2 Saturation ABG Base Excess ABG Hemoglobin Oxyhemoglobin Sodium Potassium Chloride Carbon Dioxide BUN Creatinine Glucose POC Glucose 167 H 148 H Lactic Acid Calcium Ionized Calcium Phosphorus Magnesium Total Bilirubin AST ALT Alkaline Phosphatase Ammonia Total Creatine Kinase CK-MB (CK-2) CK-MB (CK-2) Rel Index Total Protein Albumin Urine WBC (Auto) Vancomycin Trough Salicylates Acetaminophen Plasma/Serum Alcohol Crossmatch 12/15/19 12/15/19 12/15/19 07:23 12:21 17:41 WBC RBC Hgb Hct MCH RDW Plt Count Lymph % (Auto) [place] % (Auto) [place] # Baso # Seg Neutrophils % Seg Neuts % (Manual) Lymphocytes % (Manual) Monocytes % (Manual) Seg Neutrophils # Seg Neutrophils # Man Lymphocytes # (Manual) Monocytes # (Manual) Eosinophils # (Manual) Basophils # (Manual) PT INR APTT ABG pH ABG pO2 ABG HCO3 ABG O2 Saturation ABG Base Excess ABG Hemoglobin Oxyhemoglobin Sodium 147 H Potassium 3.5 L D Chloride 111.2 H Carbon Dioxide 19 L BUN 29 H Creatinine Glucose 126 H POC Glucose 154 H 144 H Lactic Acid Calcium Ionized Calcium Phosphorus Magnesium Total Bilirubin AST ALT Alkaline Phosphatase Ammonia Total Creatine Kinase CK-MB (CK-2) CK-MB (CK-2) Rel Index Total Protein Albumin Urine WBC (Auto) Vancomycin Trough Salicylates Acetaminophen Plasma/Serum Alcohol Crossmatch 12/16/19 12/16/19 12/16/19 00:22 05:30 05:44 WBC 30.8 H RBC 2.58 L Hgb 7.1 L Hct 22.7 L MCH RDW 19.6 H Plt Count 451 H Lymph % (Auto) [place] % (Auto) [place] # Baso # Seg Neutrophils % Seg Neuts % (Manual) Lymphocytes % (Manual) Monocytes % (Manual) Seg Neutrophils # Seg Neutrophils # Man Lymphocytes # (Manual) Monocytes # (Manual) Eosinophils # (Manual) Basophils # (Manual) PT INR APTT ABG pH ABG pO2 ABG HCO3 ABG O2 Saturation ABG Base Excess ABG Hemoglobin Oxyhemoglobin Sodium Potassium Chloride Carbon Dioxide BUN Creatinine Glucose POC Glucose 139 H 126 H Lactic Acid Calcium Ionized Calcium Phosphorus Magnesium Total Bilirubin AST ALT Alkaline Phosphatase Ammonia Total Creatine Kinase CK-MB (CK-2) CK-MB (CK-2) Rel Index Total Protein Albumin Urine WBC (Auto) Vancomycin Trough Salicylates Acetaminophen Plasma/Serum Alcohol Crossmatch 12/16/19 12/16/19 12/16/19 05:44 11:48 17:37 WBC RBC Hgb Hct MCH RDW Plt Count Lymph % (Auto) [place] % (Auto) [place] # Baso # Seg Neutrophils % Seg Neuts % (Manual) Lymphocytes % (Manual) Monocytes % (Manual) Seg Neutrophils # Seg Neutrophils # Man Lymphocytes # (Manual) Monocytes # (Manual) Eosinophils # (Manual) Basophils # (Manual) PT INR APTT ABG pH ABG pO2 ABG HCO3 ABG O2 Saturation ABG Base Excess ABG Hemoglobin Oxyhemoglobin Sodium Potassium 3.4 L Chloride 109.2 H Carbon Dioxide 19 L BUN 27 H Creatinine Glucose 124 H POC Glucose 125 H 148 H Lactic Acid Calcium Ionized Calcium Phosphorus Magnesium Total Bilirubin AST ALT Alkaline Phosphatase Ammonia Total Creatine Kinase CK-MB (CK-2) CK-MB (CK-2) Rel Index Total Protein Albumin Urine WBC (Auto) Vancomycin Trough Salicylates Acetaminophen Plasma/Serum Alcohol Crossmatch 12/16/19 12/17/19 12/17/19 23:43 05:28 12:47 WBC RBC Hgb Hct MCH RDW Plt Count Lymph % (Auto) [place] % (Auto) [place] # Baso # Seg Neutrophils % Seg Neuts % (Manual) Lymphocytes % (Manual) Monocytes % (Manual) Seg Neutrophils # Seg Neutrophils # Man Lymphocytes # (Manual) Monocytes # (Manual) Eosinophils # (Manual) Basophils # (Manual) PT INR APTT ABG pH ABG pO2 ABG HCO3 ABG O2 Saturation ABG Base Excess ABG Hemoglobin Oxyhemoglobin Sodium Potassium Chloride Carbon Dioxide BUN Creatinine Glucose POC Glucose 142 H 140 H 125 H Lactic Acid Calcium Ionized Calcium Phosphorus Magnesium Total Bilirubin AST ALT Alkaline Phosphatase Ammonia Total Creatine Kinase CK-MB (CK-2) CK-MB (CK-2) Rel Index Total Protein Albumin Urine WBC (Auto) Vancomycin Trough Salicylates Acetaminophen Plasma/Serum Alcohol Crossmatch 12/17/19 12/17/19 12/17/19 17:05 18:00 Unknown WBC RBC Hgb Hct MCH RDW Plt Count Lymph % (Auto) [place] % (Auto) [place] # Baso # Seg Neutrophils % Seg Neuts % (Manual) Lymphocytes % (Manual) Monocytes % (Manual) Seg Neutrophils # Seg Neutrophils # Man Lymphocytes # (Manual) Monocytes # (Manual) Eosinophils # (Manual) Basophils # (Manual) PT INR APTT ABG pH ABG pO2 68.1 L ABG HCO3 ABG O2 Saturation 93.7 L ABG Base Excess ABG Hemoglobin 5.0 L Oxyhemoglobin 91.7 L Sodium Potassium Chloride Carbon Dioxide BUN Creatinine Glucose POC Glucose 140 H Lactic Acid Calcium Ionized Calcium Phosphorus Magnesium Total Bilirubin AST ALT Alkaline Phosphatase Ammonia Total Creatine Kinase CK-MB (CK-2) CK-MB (CK-2) Rel Index Total Protein Albumin Urine WBC (Auto) Vancomycin Trough Salicylates Acetaminophen Plasma/Serum Alcohol Crossmatch 12/18/19 12/18/19 12/18/19 00:16 04:53 04:53 WBC 28.6 H RBC 2.27 L Hgb 6.3 L Hct 19.5 L* MCH RDW 20.0 H Plt Count 497 H Lymph % (Auto) [place] % (Auto) [place] # Baso # Seg Neutrophils % Seg Neuts % (Manual) Lymphocytes % (Manual) Monocytes % (Manual) Seg Neutrophils # Seg Neutrophils # Man Lymphocytes # (Manual) Monocytes # (Manual) Eosinophils # (Manual) Basophils # (Manual) PT INR APTT ABG pH ABG pO2 ABG HCO3 ABG O2 Saturation ABG Base Excess ABG Hemoglobin Oxyhemoglobin Sodium Potassium Chloride 107.9 H Carbon Dioxide 20 L BUN 27 H Creatinine 0.6 L Glucose 116 H POC Glucose 123 H Lactic Acid Calcium Ionized Calcium Phosphorus Magnesium Total Bilirubin AST ALT Alkaline Phosphatase Ammonia Total Creatine Kinase CK-MB (CK-2) CK-MB (CK-2) Rel Index Total Protein Albumin Urine WBC (Auto) Vancomycin Trough Salicylates Acetaminophen Plasma/Serum Alcohol Crossmatch 12/18/19 12/18/19 12/18/19 06:38 11:22 12:08 WBC RBC Hgb Hct MCH RDW Plt Count Lymph % (Auto) [place] % (Auto) [place] # Baso # Seg Neutrophils % Seg Neuts % (Manual) Lymphocytes % (Manual) Monocytes % (Manual) Seg Neutrophils # Seg Neutrophils # Man Lymphocytes # (Manual) Monocytes # (Manual) Eosinophils # (Manual) Basophils # (Manual) PT INR APTT ABG pH ABG pO2 ABG HCO3 ABG O2 Saturation ABG Base Excess ABG Hemoglobin Oxyhemoglobin Sodium Potassium Chloride Carbon Dioxide BUN Creatinine Glucose POC Glucose 120 H 127 H Lactic Acid Calcium Ionized Calcium Phosphorus Magnesium Total Bilirubin AST ALT Alkaline Phosphatase Ammonia Total Creatine Kinase CK-MB (CK-2) CK-MB (CK-2) Rel Index Total Protein Albumin Urine WBC (Auto) Vancomycin Trough Salicylates Acetaminophen Plasma/Serum Alcohol Crossmatch See Detail 12/18/19 12/18/19 12/18/19 14:05 17:49 23:53 WBC RBC Hgb Hct MCH RDW Plt Count Lymph % (Auto) [place] % (Auto) [place] # Baso # Seg Neutrophils % Seg Neuts % (Manual) Lymphocytes % (Manual) Monocytes % (Manual) Seg Neutrophils # Seg Neutrophils # Man Lymphocytes # (Manual) Monocytes # (Manual) Eosinophils # (Manual) Basophils # (Manual) PT INR APTT ABG pH 7.267 L ABG pO2 69.8 L ABG HCO3 ABG O2 Saturation 88.4 L ABG Base Excess ABG Hemoglobin 7.1 L Oxyhemoglobin 86.4 L Sodium Potassium Chloride Carbon Dioxide BUN Creatinine Glucose POC Glucose 157 H 128 H Lactic Acid Calcium Ionized Calcium Phosphorus Magnesium Total Bilirubin AST ALT Alkaline Phosphatase Ammonia Total Creatine Kinase CK-MB (CK-2) CK-MB (CK-2) Rel Index Total Protein Albumin Urine WBC (Auto) Vancomycin Trough Salicylates Acetaminophen Plasma/Serum Alcohol Crossmatch 12/19/19 12/19/19 12/19/19 03:37 03:37 05:25 WBC 31.3 H RBC 2.60 L Hgb 7.6 L Hct 23.0 L MCH RDW 19.4 H Plt Count 530 H Lymph % (Auto) [place] % (Auto) [place] # Baso # Seg Neutrophils % Seg Neuts % (Manual) Lymphocytes % (Manual) Monocytes % (Manual) Seg Neutrophils # Seg Neutrophils # Man Lymphocytes # (Manual) Monocytes # (Manual) Eosinophils # (Manual) Basophils # (Manual) PT INR APTT ABG pH ABG pO2 ABG HCO3 ABG O2 Saturation ABG Base Excess ABG Hemoglobin Oxyhemoglobin Sodium Potassium Chloride Carbon Dioxide 18 L BUN 36 H Creatinine Glucose 111 H POC Glucose 123 H Lactic Acid Calcium Ionized Calcium Phosphorus Magnesium Total Bilirubin AST ALT Alkaline Phosphatase Ammonia Total Creatine Kinase CK-MB (CK-2) CK-MB (CK-2) Rel Index Total Protein Albumin Urine WBC (Auto) Vancomycin Trough Salicylates Acetaminophen Plasma/Serum Alcohol Crossmatch 12/19/19 12/19/19 12/20/19 12:59 18:33 00:00 WBC RBC Hgb Hct MCH RDW Plt Count Lymph % (Auto) [place] % (Auto) [place] # Baso # Seg Neutrophils % Seg Neuts % (Manual) Lymphocytes % (Manual) Monocytes % (Manual) Seg Neutrophils # Seg Neutrophils # Man Lymphocytes # (Manual) Monocytes # (Manual) Eosinophils # (Manual) Basophils # (Manual) PT INR APTT ABG pH ABG pO2 ABG HCO3 ABG O2 Saturation ABG Base Excess ABG Hemoglobin Oxyhemoglobin Sodium Potassium Chloride Carbon Dioxide BUN Creatinine Glucose POC Glucose 130 H 118 H 135 H Lactic Acid Calcium Ionized Calcium Phosphorus Magnesium Total Bilirubin AST ALT Alkaline Phosphatase Ammonia Total Creatine Kinase CK-MB (CK-2) CK-MB (CK-2) Rel Index Total Protein Albumin Urine WBC (Auto) Vancomycin Trough Salicylates Acetaminophen Plasma/Serum Alcohol Crossmatch 12/20/19 12/20/19 12/20/19 05:46 12:31 18:07 WBC RBC Hgb Hct MCH RDW Plt Count Lymph % (Auto) [place] % (Auto) [place] # Baso # Seg Neutrophils % Seg Neuts % (Manual) Lymphocytes % (Manual) Monocytes % (Manual) Seg Neutrophils # Seg Neutrophils # Man Lymphocytes # (Manual) Monocytes # (Manual) Eosinophils # (Manual) Basophils # (Manual) PT INR APTT ABG pH ABG pO2 ABG HCO3 ABG O2 Saturation ABG Base Excess ABG Hemoglobin Oxyhemoglobin Sodium Potassium Chloride Carbon Dioxide BUN Creatinine Glucose POC Glucose 131 H 128 H 134 H Lactic Acid Calcium Ionized Calcium Phosphorus Magnesium Total Bilirubin AST ALT Alkaline Phosphatase Ammonia Total Creatine Kinase CK-MB (CK-2) CK-MB (CK-2) Rel Index Total Protein Albumin Urine WBC (Auto) Vancomycin Trough Salicylates Acetaminophen Plasma/Serum Alcohol Crossmatch 12/21/19 12/21/19 12/21/19 03:28 03:28 07:21 WBC 29.4 H RBC 2.30 L Hgb 6.8 L Hct 20.2 L MCH RDW 20.2 H Plt Count 746 H Lymph % (Auto) [place] % (Auto) [place] # Baso # Seg Neutrophils % Seg Neuts % (Manual) 85.0 H Lymphocytes % (Manual) 8.0 L Monocytes % (Manual) Seg Neutrophils # Seg Neutrophils # Man 25.0 H Lymphocytes # (Manual) Monocytes # (Manual) 1.5 H Eosinophils # (Manual) 0.6 H Basophils # (Manual) PT INR APTT ABG pH ABG pO2 ABG HCO3 ABG O2 Saturation ABG Base Excess ABG Hemoglobin Oxyhemoglobin Sodium Potassium Chloride Carbon Dioxide 17 L BUN 57 H Creatinine 1.4 H D Glucose POC Glucose 124 H Lactic Acid Calcium Ionized Calcium Phosphorus Magnesium Total Bilirubin AST ALT Alkaline Phosphatase Ammonia Total Creatine Kinase CK-MB (CK-2) CK-MB (CK-2) Rel Index Total Protein Albumin Urine WBC (Auto) Vancomycin Trough Salicylates Acetaminophen Plasma/Serum Alcohol Crossmatch 12/21/19 12/21/19 12/21/19 08:56 12:06 14:53 WBC RBC Hgb 7.2 L Hct 22.9 L MCH RDW Plt Count Lymph % (Auto) [place] % (Auto) [place] # Baso # Seg Neutrophils % Seg Neuts % (Manual) Lymphocytes % (Manual) Monocytes % (Manual) Seg Neutrophils # Seg Neutrophils # Man Lymphocytes # (Manual) Monocytes # (Manual) Eosinophils # (Manual) Basophils # (Manual) PT INR APTT ABG pH ABG pO2 ABG HCO3 ABG O2 Saturation ABG Base Excess ABG Hemoglobin Oxyhemoglobin Sodium Potassium Chloride Carbon Dioxide BUN Creatinine Glucose POC Glucose 116 H Lactic Acid Calcium Ionized Calcium Phosphorus Magnesium Total Bilirubin AST ALT Alkaline Phosphatase Ammonia Total Creatine Kinase CK-MB (CK-2) CK-MB (CK-2) Rel Index Total Protein Albumin Urine WBC (Auto) Vancomycin Trough 33.8 H Salicylates Acetaminophen Plasma/Serum Alcohol Crossmatch 12/21/19 12/21/19 12/21/19 14:54 17:27 23:49 WBC RBC Hgb Hct MCH RDW Plt Count Lymph % (Auto) [place] % (Auto) [place] # Baso # Seg Neutrophils % Seg Neuts % (Manual) Lymphocytes % (Manual) Monocytes % (Manual) Seg Neutrophils # Seg Neutrophils # Man Lymphocytes # (Manual) Monocytes # (Manual) Eosinophils # (Manual) Basophils # (Manual) PT INR APTT ABG pH ABG pO2 ABG HCO3 ABG O2 Saturation ABG Base Excess ABG Hemoglobin Oxyhemoglobin Sodium Potassium Chloride Carbon Dioxide BUN Creatinine Glucose POC Glucose 145 H 127 H Lactic Acid Calcium Ionized Calcium Phosphorus Magnesium Total Bilirubin AST ALT Alkaline Phosphatase Ammonia Total Creatine Kinase CK-MB (CK-2) CK-MB (CK-2) Rel Index Total Protein Albumin Urine WBC (Auto) Vancomycin Trough Salicylates Acetaminophen Plasma/Serum Alcohol Crossmatch See Detail 12/22/19 12/22/19 12/22/19 04:43 05:56 08:40 WBC RBC Hgb Hct MCH RDW Plt Count Lymph % (Auto) [place] % (Auto) [place] # Baso # Seg Neutrophils % Seg Neuts % (Manual) Lymphocytes % (Manual) Monocytes % (Manual) Seg Neutrophils # Seg Neutrophils # Man Lymphocytes # (Manual) Monocytes # (Manual) Eosinophils # (Manual) Basophils # (Manual) PT INR APTT ABG pH ABG pO2 75.6 L ABG HCO3 ABG O2 Saturation ABG Base Excess -2.6 L ABG Hemoglobin 6.8 L Oxyhemoglobin 94.6 L Sodium Potassium Chloride Carbon Dioxide 17 L BUN 60 H Creatinine 1.4 H Glucose 126 H POC Glucose 153 H Lactic Acid Calcium Ionized Calcium Phosphorus Magnesium Total Bilirubin AST ALT Alkaline Phosphatase Ammonia Total Creatine Kinase CK-MB (CK-2) CK-MB (CK-2) Rel Index Total Protein Albumin Urine WBC (Auto) Vancomycin Trough Salicylates Acetaminophen Plasma/Serum Alcohol Crossmatch 12/22/19 12/22/19 12/23/19 12:07 17:49 04:30 WBC 22.4 H RBC 2.68 L Hgb 7.6 L Hct 22.9 L MCH RDW 19.9 H Plt Count 998 H Lymph % (Auto) [place] % (Auto) [place] # Baso # Seg Neutrophils % Seg Neuts % (Manual) 88.0 H Lymphocytes % (Manual) 2.0 L Monocytes % (Manual) 9.0 H Seg Neutrophils # Seg Neutrophils # Man 19.7 H Lymphocytes # (Manual) 0.4 L Monocytes # (Manual) 2.0 H Eosinophils # (Manual) Basophils # (Manual) PT INR APTT ABG pH ABG pO2 ABG HCO3 ABG O2 Saturation ABG Base Excess ABG Hemoglobin Oxyhemoglobin Sodium Potassium Chloride Carbon Dioxide BUN Creatinine Glucose POC Glucose 140 H 116 H Lactic Acid Calcium Ionized Calcium Phosphorus Magnesium Total Bilirubin AST ALT Alkaline Phosphatase Ammonia Total Creatine Kinase CK-MB (CK-2) CK-MB (CK-2) Rel Index Total Protein Albumin Urine WBC (Auto) Vancomycin Trough Salicylates Acetaminophen Plasma/Serum Alcohol Crossmatch 12/23/19 12/23/19 12/23/19 04:30 12:00 18:06 WBC RBC Hgb Hct MCH RDW Plt Count Lymph % (Auto) [place] % (Auto) [place] # Baso # Seg Neutrophils % Seg Neuts % (Manual) Lymphocytes % (Manual) Monocytes % (Manual) Seg Neutrophils # Seg Neutrophils # Man Lymphocytes # (Manual) Monocytes # (Manual) Eosinophils # (Manual) Basophils # (Manual) PT INR APTT ABG pH ABG pO2 ABG HCO3 ABG O2 Saturation ABG Base Excess ABG Hemoglobin Oxyhemoglobin Sodium Potassium 5.2 H Chloride Carbon Dioxide 21 L BUN 69 H Creatinine 1.5 H Glucose 117 H POC Glucose 128 H 138 H Lactic Acid Calcium Ionized Calcium Phosphorus Magnesium Total Bilirubin AST ALT Alkaline Phosphatase Ammonia Total Creatine Kinase CK-MB (CK-2) CK-MB (CK-2) Rel Index Total Protein Albumin Urine WBC (Auto) Vancomycin Trough Salicylates Acetaminophen Plasma/Serum Alcohol Crossmatch 12/23/19 12/24/19 12/24/19 23:46 04:31 05:08 WBC RBC Hgb Hct MCH RDW Plt Count Lymph % (Auto) [place] % (Auto) [place] # Baso # Seg Neutrophils % Seg Neuts % (Manual) Lymphocytes % (Manual) Monocytes % (Manual) Seg Neutrophils # Seg Neutrophils # Man Lymphocytes # (Manual) Monocytes # (Manual) Eosinophils # (Manual) Basophils # (Manual) PT INR APTT ABG pH ABG pO2 ABG HCO3 ABG O2 Saturation ABG Base Excess ABG Hemoglobin Oxyhemoglobin Sodium Potassium 5.3 H Chloride 107.6 H Carbon Dioxide 20 L BUN 72 H Creatinine 1.6 H Glucose 120 H POC Glucose 120 H 140 H Lactic Acid Calcium Ionized Calcium Phosphorus Magnesium Total Bilirubin AST ALT Alkaline Phosphatase Ammonia Total Creatine Kinase CK-MB (CK-2) CK-MB (CK-2) Rel Index Total Protein Albumin Urine WBC (Auto) Vancomycin Trough Salicylates Acetaminophen Plasma/Serum Alcohol Crossmatch 12/24/19 12/24/19 12/25/19 11:58 17:49 03:47 WBC 36.2 H RBC 2.92 L Hgb 8.4 L Hct 26.1 L MCH RDW 20.2 H Plt Count 942 H Lymph % (Auto) [place] % (Auto) [place] # Baso # Seg Neutrophils % Seg Neuts % (Manual) 97.5 H Lymphocytes % (Manual) 1.0 L Monocytes % (Manual) Seg Neutrophils # Seg Neutrophils # Man 35.3 H Lymphocytes # (Manual) 0.4 L Monocytes # (Manual) Eosinophils # (Manual) Basophils # (Manual) PT INR APTT ABG pH ABG pO2 ABG HCO3 ABG O2 Saturation ABG Base Excess ABG Hemoglobin Oxyhemoglobin Sodium Potassium Chloride Carbon Dioxide BUN Creatinine Glucose POC Glucose 146 H 131 H Lactic Acid Calcium Ionized Calcium Phosphorus Magnesium Total Bilirubin AST ALT Alkaline Phosphatase Ammonia Total Creatine Kinase CK-MB (CK-2) CK-MB (CK-2) Rel Index Total Protein Albumin Urine WBC (Auto) Vancomycin Trough Salicylates Acetaminophen Plasma/Serum Alcohol Crossmatch 12/25/19 12/25/19 12/25/19 03:47 05:30 12:23 WBC RBC Hgb Hct MCH RDW Plt Count Lymph % (Auto) [place] % (Auto) [place] # Baso # Seg Neutrophils % Seg Neuts % (Manual) Lymphocytes % (Manual) Monocytes % (Manual) Seg Neutrophils # Seg Neutrophils # Man Lymphocytes # (Manual) Monocytes # (Manual) Eosinophils # (Manual) Basophils # (Manual) PT INR APTT ABG pH ABG pO2 ABG HCO3 ABG O2 Saturation ABG Base Excess ABG Hemoglobin Oxyhemoglobin Sodium Potassium Chloride Carbon Dioxide 15 L BUN 70 H Creatinine 1.7 H Glucose 153 H POC Glucose 169 H 135 H Lactic Acid Calcium Ionized Calcium Phosphorus Magnesium Total Bilirubin AST ALT Alkaline Phosphatase Ammonia Total Creatine Kinase CK-MB (CK-2) CK-MB (CK-2) Rel Index Total Protein Albumin Urine WBC (Auto) Vancomycin Trough Salicylates Acetaminophen Plasma/Serum Alcohol Crossmatch 12/25/19 12/25/19 12/26/19 17:37 23:29 09:47 WBC 22.1 H RBC 2.83 L Hgb 7.9 L Hct 25.5 L MCH RDW 20.0 H Plt Count 894 H Lymph % (Auto) [place] % (Auto) [place] # Baso # Seg Neutrophils % Seg Neuts % (Manual) Lymphocytes % (Manual) Monocytes % (Manual) Seg Neutrophils # Seg Neutrophils # Man Lymphocytes # (Manual) Monocytes # (Manual) Eosinophils # (Manual) Basophils # (Manual) PT INR APTT ABG pH ABG pO2 ABG HCO3 ABG O2 Saturation ABG Base Excess ABG Hemoglobin Oxyhemoglobin Sodium Potassium Chloride Carbon Dioxide BUN Creatinine Glucose POC Glucose 120 H 140 H Lactic Acid Calcium Ionized Calcium Phosphorus Magnesium Total Bilirubin AST ALT Alkaline Phosphatase Ammonia Total Creatine Kinase CK-MB (CK-2) CK-MB (CK-2) Rel Index Total Protein Albumin Urine WBC (Auto) Vancomycin Trough Salicylates Acetaminophen Plasma/Serum Alcohol Crossmatch 12/26/19 12/26/19 12/26/19 09:47 11:46 17:52 WBC RBC Hgb Hct MCH RDW Plt Count Lymph % (Auto) [place] % (Auto) [place] # Baso # Seg Neutrophils % Seg Neuts % (Manual) Lymphocytes % (Manual) Monocytes % (Manual) Seg Neutrophils # Seg Neutrophils # Man Lymphocytes # (Manual) Monocytes # (Manual) Eosinophils # (Manual) Basophils # (Manual) PT INR APTT ABG pH ABG pO2 ABG HCO3 ABG O2 Saturation ABG Base Excess ABG Hemoglobin Oxyhemoglobin Sodium Potassium Chloride Carbon Dioxide 18 L BUN 65 H Creatinine 1.4 H Glucose 132 H POC Glucose 110 H 145 H Lactic Acid Calcium Ionized Calcium Phosphorus Magnesium Total Bilirubin AST ALT Alkaline Phosphatase Ammonia Total Creatine Kinase CK-MB (CK-2) CK-MB (CK-2) Rel Index Total Protein Albumin Urine WBC (Auto) Vancomycin Trough Salicylates Acetaminophen Plasma/Serum Alcohol Crossmatch 12/27/19 12/27/19 12/27/19 00:01 03:42 03:42 WBC 18.0 H RBC 2.86 L Hgb 8.0 L Hct 25.2 L MCH RDW 19.2 H Plt Count 873 H Lymph % (Auto) 8.4 L [place] % (Auto) 7.5 H [place] # 1.4 H Baso # 0.2 H Seg Neutrophils % 82.2 H Seg Neuts % (Manual) Lymphocytes % (Manual) Monocytes % (Manual) Seg Neutrophils # 14.8 H Seg Neutrophils # Man Lymphocytes # (Manual) Monocytes # (Manual) Eosinophils # (Manual) Basophils # (Manual) PT INR APTT ABG pH ABG pO2 ABG HCO3 ABG O2 Saturation ABG Base Excess ABG Hemoglobin Oxyhemoglobin Sodium Potassium Chloride Carbon Dioxide BUN 73 H Creatinine 1.4 H Glucose 119 H POC Glucose 124 H Lactic Acid Calcium Ionized Calcium Phosphorus Magnesium Total Bilirubin AST ALT Alkaline Phosphatase Ammonia Total Creatine Kinase CK-MB (CK-2) CK-MB (CK-2) Rel Index Total Protein Albumin Urine WBC (Auto) Vancomycin Trough Salicylates Acetaminophen Plasma/Serum Alcohol Crossmatch 12/27/19 12/27/19 12/27/19 05:45 11:45 17:29 WBC RBC Hgb Hct MCH RDW Plt Count Lymph % (Auto) [place] % (Auto) [place] # Baso # Seg Neutrophils % Seg Neuts % (Manual) Lymphocytes % (Manual) Monocytes % (Manual) Seg Neutrophils # Seg Neutrophils # Man Lymphocytes # (Manual) Monocytes # (Manual) Eosinophils # (Manual) Basophils # (Manual) PT INR APTT ABG pH ABG pO2 ABG HCO3 ABG O2 Saturation ABG Base Excess ABG Hemoglobin Oxyhemoglobin Sodium Potassium Chloride Carbon Dioxide BUN Creatinine Glucose POC Glucose 131 H 123 H 134 H Lactic Acid Calcium Ionized Calcium Phosphorus Magnesium Total Bilirubin AST ALT Alkaline Phosphatase Ammonia Total Creatine Kinase CK-MB (CK-2) CK-MB (CK-2) Rel Index Total Protein Albumin Urine WBC (Auto) Vancomycin Trough Salicylates Acetaminophen Plasma/Serum Alcohol Crossmatch 12/28/19 12/28/19 12/28/19 00:12 05:14 11:53 WBC RBC Hgb Hct MCH RDW Plt Count Lymph % (Auto) [place] % (Auto) [place] # Baso # Seg Neutrophils % Seg Neuts % (Manual) Lymphocytes % (Manual) Monocytes % (Manual) Seg Neutrophils # Seg Neutrophils # Man Lymphocytes # (Manual) Monocytes # (Manual) Eosinophils # (Manual) Basophils # (Manual) PT INR APTT ABG pH ABG pO2 ABG HCO3 ABG O2 Saturation ABG Base Excess ABG Hemoglobin Oxyhemoglobin Sodium Potassium Chloride Carbon Dioxide BUN Creatinine Glucose POC Glucose 138 H 130 H 146 H Lactic Acid Calcium Ionized Calcium Phosphorus Magnesium Total Bilirubin AST ALT Alkaline Phosphatase Ammonia Total Creatine Kinase CK-MB (CK-2) CK-MB (CK-2) Rel Index Total Protein Albumin Urine WBC (Auto) Vancomycin Trough Salicylates Acetaminophen Plasma/Serum Alcohol Crossmatch 12/28/19 12/29/19 12/29/19 17:39 00:01 18:11 WBC RBC Hgb Hct MCH RDW Plt Count Lymph % (Auto) [place] % (Auto) [place] # Baso # Seg Neutrophils % Seg Neuts % (Manual) Lymphocytes % (Manual) Monocytes % (Manual) Seg Neutrophils # Seg Neutrophils # Man Lymphocytes # (Manual) Monocytes # (Manual) Eosinophils # (Manual) Basophils # (Manual) PT INR APTT ABG pH ABG pO2 ABG HCO3 ABG O2 Saturation ABG Base Excess ABG Hemoglobin Oxyhemoglobin Sodium Potassium Chloride Carbon Dioxide BUN Creatinine Glucose POC Glucose 117 H 139 H 130 H Lactic Acid Calcium Ionized Calcium Phosphorus Magnesium Total Bilirubin AST ALT Alkaline Phosphatase Ammonia Total Creatine Kinase CK-MB (CK-2) CK-MB (CK-2) Rel Index Total Protein Albumin Urine WBC (Auto) Vancomycin Trough Salicylates Acetaminophen Plasma/Serum Alcohol Crossmatch 12/29/19 12/30/19 12/30/19 23:09 00:02 01:06 WBC 16.7 H RBC 2.91 L Hgb 8.2 L Hct 25.4 L MCH RDW 18.7 H Plt Count 708 H Lymph % (Auto) 9.4 L [place] % (Auto) [place] # 0.9 H Baso # Seg Neutrophils % 83.5 H Seg Neuts % (Manual) Lymphocytes % (Manual) Monocytes % (Manual) Seg Neutrophils # 14.0 H Seg Neutrophils # Man Lymphocytes # (Manual) Monocytes # (Manual) Eosinophils # (Manual) Basophils # (Manual) PT INR APTT ABG pH ABG pO2 ABG HCO3 ABG O2 Saturation ABG Base Excess ABG Hemoglobin Oxyhemoglobin Sodium Potassium Chloride Carbon Dioxide BUN Creatinine Glucose POC Glucose 120 H 114 H Lactic Acid Calcium Ionized Calcium Phosphorus Magnesium Total Bilirubin AST ALT Alkaline Phosphatase Ammonia Total Creatine Kinase CK-MB (CK-2) CK-MB (CK-2) Rel Index Total Protein Albumin Urine WBC (Auto) Vancomycin Trough Salicylates Acetaminophen Plasma/Serum Alcohol Crossmatch 12/30/19 12/30/19 12/30/19 01:06 04:23 05:18 WBC RBC Hgb Hct MCH RDW Plt Count Lymph % (Auto) [place] % (Auto) [place] # Baso # Seg Neutrophils % Seg Neuts % (Manual) Lymphocytes % (Manual) Monocytes % (Manual) Seg Neutrophils # Seg Neutrophils # Man Lymphocytes # (Manual) Monocytes # (Manual) Eosinophils # (Manual) Basophils # (Manual) PT INR APTT ABG pH ABG pO2 ABG HCO3 ABG O2 Saturation ABG Base Excess ABG Hemoglobin 8.3 L Oxyhemoglobin Sodium Potassium Chloride Carbon Dioxide BUN 70 H Creatinine Glucose 122 H POC Glucose 130 H Lactic Acid Calcium Ionized Calcium Phosphorus Magnesium Total Bilirubin AST ALT Alkaline Phosphatase Ammonia Total Creatine Kinase CK-MB (CK-2) CK-MB (CK-2) Rel Index Total Protein Albumin Urine WBC (Auto) Vancomycin Trough Salicylates Acetaminophen Plasma/Serum Alcohol Crossmatch 12/30/19 12/30/19 12/30/19 05:40 12:17 17:43 WBC RBC Hgb Hct MCH RDW Plt Count Lymph % (Auto) [place] % (Auto) [place] # Baso # Seg Neutrophils % Seg Neuts % (Manual) Lymphocytes % (Manual) Monocytes % (Manual) Seg Neutrophils # Seg Neutrophils # Man Lymphocytes # (Manual) Monocytes # (Manual) Eosinophils # (Manual) Basophils # (Manual) PT INR APTT ABG pH ABG pO2 ABG HCO3 ABG O2 Saturation ABG Base Excess ABG Hemoglobin Oxyhemoglobin Sodium Potassium Chloride Carbon Dioxide BUN Creatinine Glucose POC Glucose 135 H 132 H 118 H Lactic Acid Calcium Ionized Calcium Phosphorus Magnesium Total Bilirubin AST ALT Alkaline Phosphatase Ammonia Total Creatine Kinase CK-MB (CK-2) CK-MB (CK-2) Rel Index Total Protein Albumin Urine WBC (Auto) Vancomycin Trough Salicylates Acetaminophen Plasma/Serum Alcohol Crossmatch 12/30/19 12/31/19 12/31/19 23:29 05:19 17:50 WBC RBC Hgb Hct MCH RDW Plt Count Lymph % (Auto) [place] % (Auto) [place] # Baso # Seg Neutrophils % Seg Neuts % (Manual) Lymphocytes % (Manual) Monocytes % (Manual) Seg Neutrophils # Seg Neutrophils # Man Lymphocytes # (Manual) Monocytes # (Manual) Eosinophils # (Manual) Basophils # (Manual) PT INR APTT ABG pH ABG pO2 ABG HCO3 ABG O2 Saturation ABG Base Excess ABG Hemoglobin Oxyhemoglobin Sodium Potassium Chloride Carbon Dioxide BUN Creatinine Glucose POC Glucose 114 H 109 H 116 H Lactic Acid Calcium Ionized Calcium Phosphorus Magnesium Total Bilirubin AST ALT Alkaline Phosphatase Ammonia Total Creatine Kinase CK-MB (CK-2) CK-MB (CK-2) Rel Index Total Protein Albumin Urine WBC (Auto) Vancomycin Trough Salicylates Acetaminophen Plasma/Serum Alcohol Crossmatch 01/01/20 01/01/20 01/01/20 00:10 05:19 12:02 WBC RBC Hgb Hct MCH RDW Plt Count Lymph % (Auto) [place] % (Auto) [place] # Baso # Seg Neutrophils % Seg Neuts % (Manual) Lymphocytes % (Manual) Monocytes % (Manual) Seg Neutrophils # Seg Neutrophils # Man Lymphocytes # (Manual) Monocytes # (Manual) Eosinophils # (Manual) Basophils # (Manual) PT INR APTT ABG pH ABG pO2 ABG HCO3 ABG O2 Saturation ABG Base Excess ABG Hemoglobin Oxyhemoglobin Sodium Potassium Chloride Carbon Dioxide BUN Creatinine Glucose POC Glucose 131 H 122 H 136 H Lactic Acid Calcium Ionized Calcium Phosphorus Magnesium Total Bilirubin AST ALT Alkaline Phosphatase Ammonia Total Creatine Kinase CK-MB (CK-2) CK-MB (CK-2) Rel Index Total Protein Albumin Urine WBC (Auto) Vancomycin Trough Salicylates Acetaminophen Plasma/Serum Alcohol Crossmatch 01/02/20 01/02/20 01/02/20 00:24 05:36 11:41 WBC RBC Hgb Hct MCH RDW Plt Count Lymph % (Auto) [place] % (Auto) [place] # Baso # Seg Neutrophils % Seg Neuts % (Manual) Lymphocytes % (Manual) Monocytes % (Manual) Seg Neutrophils # Seg Neutrophils # Man Lymphocytes # (Manual) Monocytes # (Manual) Eosinophils # (Manual) Basophils # (Manual) PT INR APTT ABG pH ABG pO2 ABG HCO3 ABG O2 Saturation ABG Base Excess ABG Hemoglobin Oxyhemoglobin Sodium Potassium Chloride Carbon Dioxide BUN Creatinine Glucose POC Glucose 119 H 109 H 125 H Lactic Acid Calcium Ionized Calcium Phosphorus Magnesium Total Bilirubin AST ALT Alkaline Phosphatase Ammonia Total Creatine Kinase CK-MB (CK-2) CK-MB (CK-2) Rel Index Total Protein Albumin Urine WBC (Auto) Vancomycin Trough Salicylates Acetaminophen Plasma/Serum Alcohol Crossmatch 01/02/20 01/03/20 01/03/20 17:49 05:29 12:13 WBC RBC Hgb Hct MCH RDW Plt Count Lymph % (Auto) [place] % (Auto) [place] # Baso # Seg Neutrophils % Seg Neuts % (Manual) Lymphocytes % (Manual) Monocytes % (Manual) Seg Neutrophils # Seg Neutrophils # Man Lymphocytes # (Manual) Monocytes # (Manual) Eosinophils # (Manual) Basophils # (Manual) PT INR APTT ABG pH ABG pO2 ABG HCO3 ABG O2 Saturation ABG Base Excess ABG Hemoglobin Oxyhemoglobin Sodium Potassium Chloride Carbon Dioxide BUN Creatinine Glucose POC Glucose 130 H 132 H 113 H Lactic Acid Calcium Ionized Calcium Phosphorus Magnesium Total Bilirubin AST ALT Alkaline Phosphatase Ammonia Total Creatine Kinase CK-MB (CK-2) CK-MB (CK-2) Rel Index Total Protein Albumin Urine WBC (Auto) Vancomycin Trough Salicylates Acetaminophen Plasma/Serum Alcohol Crossmatch 01/03/20 01/04/20 01/04/20 17:32 00:19 05:26 WBC RBC Hgb Hct MCH RDW Plt Count Lymph % (Auto) [place] % (Auto) [place] # Baso # Seg Neutrophils % Seg Neuts % (Manual) Lymphocytes % (Manual) Monocytes % (Manual) Seg Neutrophils # Seg Neutrophils # Man Lymphocytes # (Manual) Monocytes # (Manual) Eosinophils # (Manual) Basophils # (Manual) PT INR APTT ABG pH ABG pO2 ABG HCO3 ABG O2 Saturation ABG Base Excess ABG Hemoglobin Oxyhemoglobin Sodium Potassium Chloride Carbon Dioxide BUN Creatinine Glucose POC Glucose 127 H 141 H 129 H Lactic Acid Calcium Ionized Calcium Phosphorus Magnesium Total Bilirubin AST ALT Alkaline Phosphatase Ammonia Total Creatine Kinase CK-MB (CK-2) CK-MB (CK-2) Rel Index Total Protein Albumin Urine WBC (Auto) Vancomycin Trough Salicylates Acetaminophen Plasma/Serum Alcohol Crossmatch 01/04/20 01/04/20 01/05/20 11:39 17:29 05:22 WBC RBC Hgb Hct MCH RDW Plt Count Lymph % (Auto) [place] % (Auto) [place] # Baso # Seg Neutrophils % Seg Neuts % (Manual) Lymphocytes % (Manual) Monocytes % (Manual) Seg Neutrophils # Seg Neutrophils # Man Lymphocytes # (Manual) Monocytes # (Manual) Eosinophils # (Manual) Basophils # (Manual) PT INR APTT ABG pH ABG pO2 ABG HCO3 ABG O2 Saturation ABG Base Excess ABG Hemoglobin Oxyhemoglobin Sodium Potassium Chloride Carbon Dioxide BUN Creatinine Glucose POC Glucose 167 H 132 H 121 H Lactic Acid Calcium Ionized Calcium Phosphorus Magnesium Total Bilirubin AST ALT Alkaline Phosphatase Ammonia Total Creatine Kinase CK-MB (CK-2) CK-MB (CK-2) Rel Index Total Protein Albumin Urine WBC (Auto) Vancomycin Trough Salicylates Acetaminophen Plasma/Serum Alcohol Crossmatch 01/05/20 01/05/20 01/05/20 12:25 17:40 18:06 WBC RBC Hgb Hct MCH RDW Plt Count Lymph % (Auto) [place] % (Auto) [place] # Baso # Seg Neutrophils % Seg Neuts % (Manual) Lymphocytes % (Manual) Monocytes % (Manual) Seg Neutrophils # Seg Neutrophils # Man Lymphocytes # (Manual) Monocytes # (Manual) Eosinophils # (Manual) Basophils # (Manual) PT INR APTT ABG pH 7.472 H ABG pO2 99.2 H ABG HCO3 ABG O2 Saturation ABG Base Excess ABG Hemoglobin 7.8 L Oxyhemoglobin Sodium Potassium Chloride Carbon Dioxide BUN Creatinine Glucose POC Glucose 106 H 110 H Lactic Acid Calcium Ionized Calcium Phosphorus Magnesium Total Bilirubin AST ALT Alkaline Phosphatase Ammonia Total Creatine Kinase CK-MB (CK-2) CK-MB (CK-2) Rel Index Total Protein Albumin Urine WBC (Auto) Vancomycin Trough Salicylates Acetaminophen Plasma/Serum Alcohol Crossmatch 01/06/20 01/06/20 01/06/20 00:11 05:16 11:30 WBC RBC Hgb Hct MCH RDW Plt Count Lymph % (Auto) [place] % (Auto) [place] # Baso # Seg Neutrophils % Seg Neuts % (Manual) Lymphocytes % (Manual) Monocytes % (Manual) Seg Neutrophils # Seg Neutrophils # Man Lymphocytes # (Manual) Monocytes # (Manual) Eosinophils # (Manual) Basophils # (Manual) PT INR APTT ABG pH ABG pO2 ABG HCO3 ABG O2 Saturation ABG Base Excess ABG Hemoglobin Oxyhemoglobin Sodium Potassium Chloride Carbon Dioxide BUN Creatinine Glucose POC Glucose 108 H 124 H 125 H Lactic Acid Calcium Ionized Calcium Phosphorus Magnesium Total Bilirubin AST ALT Alkaline Phosphatase Ammonia Total Creatine Kinase CK-MB (CK-2) CK-MB (CK-2) Rel Index Total Protein Albumin Urine WBC (Auto) Vancomycin Trough Salicylates Acetaminophen Plasma/Serum Alcohol Crossmatch 01/06/20 01/06/20 01/07/20 17:53 23:51 04:12 WBC 16.5 H RBC 3.29 L Hgb 9.3 L Hct 28.1 L MCH RDW 18.2 H Plt Count 526 H Lymph % (Auto) 8.4 L [place] % (Auto) [place] # 1.0 H Baso # Seg Neutrophils % 84.4 H Seg Neuts % (Manual) Lymphocytes % (Manual) Monocytes % (Manual) Seg Neutrophils # 13.9 H Seg Neutrophils # Man Lymphocytes # (Manual) Monocytes # (Manual) Eosinophils # (Manual) Basophils # (Manual) PT INR APTT ABG pH ABG pO2 ABG HCO3 ABG O2 Saturation ABG Base Excess ABG Hemoglobin Oxyhemoglobin Sodium Potassium Chloride Carbon Dioxide BUN Creatinine Glucose POC Glucose 166 H 128 H Lactic Acid Calcium Ionized Calcium Phosphorus Magnesium Total Bilirubin AST ALT Alkaline Phosphatase Ammonia Total Creatine Kinase CK-MB (CK-2) CK-MB (CK-2) Rel Index Total Protein Albumin Urine WBC (Auto) Vancomycin Trough Salicylates Acetaminophen Plasma/Serum Alcohol Crossmatch 01/07/20 01/07/20 01/07/20 04:12 04:45 11:51 WBC RBC Hgb Hct MCH RDW Plt Count Lymph % (Auto) [place] % (Auto) [place] # Baso # Seg Neutrophils % Seg Neuts % (Manual) Lymphocytes % (Manual) Monocytes % (Manual) Seg Neutrophils # Seg Neutrophils # Man Lymphocytes # (Manual) Monocytes # (Manual) Eosinophils # (Manual) Basophils # (Manual) PT INR APTT ABG pH ABG pO2 ABG HCO3 ABG O2 Saturation ABG Base Excess ABG Hemoglobin Oxyhemoglobin Sodium 136 L Potassium Chloride Carbon Dioxide 21 L BUN 44 H Creatinine 0.6 L Glucose 124 H POC Glucose 134 H 138 H Lactic Acid Calcium Ionized Calcium Phosphorus Magnesium Total Bilirubin AST ALT Alkaline Phosphatase Ammonia Total Creatine Kinase CK-MB (CK-2) CK-MB (CK-2) Rel Index Total Protein Albumin Urine WBC (Auto) Vancomycin Trough Salicylates Acetaminophen Plasma/Serum Alcohol Crossmatch 01/07/20 01/08/20 01/08/20 17:36 00:33 05:29 WBC RBC Hgb Hct MCH RDW Plt Count Lymph % (Auto) [place] % (Auto) [place] # Baso # Seg Neutrophils % Seg Neuts % (Manual) Lymphocytes % (Manual) Monocytes % (Manual) Seg Neutrophils # Seg Neutrophils # Man Lymphocytes # (Manual) Monocytes # (Manual) Eosinophils # (Manual) Basophils # (Manual) PT INR APTT ABG pH ABG pO2 ABG HCO3 ABG O2 Saturation ABG Base Excess ABG Hemoglobin Oxyhemoglobin Sodium Potassium Chloride Carbon Dioxide BUN Creatinine Glucose POC Glucose 128 H 119 H 124 H Lactic Acid Calcium Ionized Calcium Phosphorus Magnesium Total Bilirubin AST ALT Alkaline Phosphatase Ammonia Total Creatine Kinase CK-MB (CK-2) CK-MB (CK-2) Rel Index Total Protein Albumin Urine WBC (Auto) Vancomycin Trough Salicylates Acetaminophen Plasma/Serum Alcohol Crossmatch 01/08/20 01/08/20 01/08/20 12:51 20:25 23:22 WBC RBC Hgb Hct MCH RDW Plt Count Lymph % (Auto) [place] % (Auto) [place] # Baso # Seg Neutrophils % Seg Neuts % (Manual) Lymphocytes % (Manual) Monocytes % (Manual) Seg Neutrophils # Seg Neutrophils # Man Lymphocytes # (Manual) Monocytes # (Manual) Eosinophils # (Manual) Basophils # (Manual) PT INR APTT ABG pH ABG pO2 132.2 H ABG HCO3 ABG O2 Saturation ABG Base Excess ABG Hemoglobin Oxyhemoglobin Sodium Potassium Chloride Carbon Dioxide BUN Creatinine Glucose POC Glucose 128 H 127 H Lactic Acid Calcium Ionized Calcium Phosphorus Magnesium Total Bilirubin AST ALT Alkaline Phosphatase Ammonia Total Creatine Kinase CK-MB (CK-2) CK-MB (CK-2) Rel Index Total Protein Albumin Urine WBC (Auto) Vancomycin Trough Salicylates Acetaminophen Plasma/Serum Alcohol Crossmatch 01/09/20 01/09/20 01/09/20 05:48 08:51 11:29 WBC RBC Hgb Hct MCH RDW Plt Count Lymph % (Auto) [place] % (Auto) [place] # Baso # Seg Neutrophils % Seg Neuts % (Manual) Lymphocytes % (Manual) Monocytes % (Manual) Seg Neutrophils # Seg Neutrophils # Man Lymphocytes # (Manual) Monocytes # (Manual) Eosinophils # (Manual) Basophils # (Manual) PT INR APTT ABG pH ABG pO2 94.3 H ABG HCO3 ABG O2 Saturation ABG Base Excess ABG Hemoglobin 9.5 L Oxyhemoglobin Sodium Potassium Chloride Carbon Dioxide BUN Creatinine Glucose POC Glucose 120 H 112 H Lactic Acid Calcium Ionized Calcium Phosphorus Magnesium Total Bilirubin AST ALT Alkaline Phosphatase Ammonia Total Creatine Kinase CK-MB (CK-2) CK-MB (CK-2) Rel Index Total Protein Albumin Urine WBC (Auto) Vancomycin Trough Salicylates Acetaminophen Plasma/Serum Alcohol Crossmatch 01/09/20 01/10/20 01/10/20 17:57 05:17 12:28 WBC RBC Hgb Hct MCH RDW Plt Count Lymph % (Auto) [place] % (Auto) [place] # Baso # Seg Neutrophils % Seg Neuts % (Manual) Lymphocytes % (Manual) Monocytes % (Manual) Seg Neutrophils # Seg Neutrophils # Man Lymphocytes # (Manual) Monocytes # (Manual) Eosinophils # (Manual) Basophils # (Manual) PT INR APTT ABG pH ABG pO2 ABG HCO3 ABG O2 Saturation ABG Base Excess ABG Hemoglobin Oxyhemoglobin Sodium Potassium Chloride Carbon Dioxide BUN Creatinine Glucose POC Glucose 122 H 115 H 116 H Lactic Acid Calcium Ionized Calcium Phosphorus Magnesium Total Bilirubin AST ALT Alkaline Phosphatase Ammonia Total Creatine Kinase CK-MB (CK-2) CK-MB (CK-2) Rel Index Total Protein Albumin Urine WBC (Auto) Vancomycin Trough Salicylates Acetaminophen Plasma/Serum Alcohol Crossmatch 01/10/20 01/10/20 01/11/20 18:25 23:47 06:05 WBC RBC Hgb Hct MCH RDW Plt Count Lymph % (Auto) [place] % (Auto) [place] # Baso # Seg Neutrophils % Seg Neuts % (Manual) Lymphocytes % (Manual) Monocytes % (Manual) Seg Neutrophils # Seg Neutrophils # Man Lymphocytes # (Manual) Monocytes # (Manual) Eosinophils # (Manual) Basophils # (Manual) PT INR APTT ABG pH ABG pO2 ABG HCO3 ABG O2 Saturation ABG Base Excess ABG Hemoglobin Oxyhemoglobin Sodium Potassium Chloride Carbon Dioxide BUN Creatinine Glucose POC Glucose 123 H 115 H 151 H Lactic Acid Calcium Ionized Calcium Phosphorus Magnesium Total Bilirubin AST ALT Alkaline Phosphatase Ammonia Total Creatine Kinase CK-MB (CK-2) CK-MB (CK-2) Rel Index Total Protein Albumin Urine WBC (Auto) Vancomycin Trough Salicylates Acetaminophen Plasma/Serum Alcohol Crossmatch 01/11/20 01/11/20 01/11/20 07:00 07:00 12:27 WBC 11.8 H RBC 3.40 L Hgb 9.4 L Hct 29.3 L MCH RDW 18.1 H Plt Count 549 H Lymph % (Auto) [place] % (Auto) 9.1 H [place] # 1.1 H Baso # Seg Neutrophils % 73.3 H Seg Neuts % (Manual) Lymphocytes % (Manual) Monocytes % (Manual) Seg Neutrophils # 8.7 H Seg Neutrophils # Man Lymphocytes # (Manual) Monocytes # (Manual) Eosinophils # (Manual) Basophils # (Manual) PT INR APTT ABG pH ABG pO2 ABG HCO3 ABG O2 Saturation ABG Base Excess ABG Hemoglobin Oxyhemoglobin Sodium 134 L Potassium Chloride 97.7 L Carbon Dioxide 21 L BUN 38 H Creatinine 0.5 L Glucose 168 H POC Glucose 117 H Lactic Acid Calcium 10.5 H Ionized Calcium Phosphorus Magnesium Total Bilirubin AST ALT Alkaline Phosphatase Ammonia Total Creatine Kinase CK-MB (CK-2) CK-MB (CK-2) Rel Index Total Protein Albumin Urine WBC (Auto) Vancomycin Trough Salicylates Acetaminophen Plasma/Serum Alcohol Crossmatch 01/11/20 01/12/20 01/12/20 18:19 00:53 05:24 WBC RBC Hgb Hct MCH RDW Plt Count Lymph % (Auto) [place] % (Auto) [place] # Baso # Seg Neutrophils % Seg Neuts % (Manual) Lymphocytes % (Manual) Monocytes % (Manual) Seg Neutrophils # Seg Neutrophils # Man Lymphocytes # (Manual) Monocytes # (Manual) Eosinophils # (Manual) Basophils # (Manual) PT INR APTT ABG pH ABG pO2 ABG HCO3 ABG O2 Saturation ABG Base Excess ABG Hemoglobin Oxyhemoglobin Sodium Potassium Chloride Carbon Dioxide BUN Creatinine Glucose POC Glucose 126 H 126 H 128 H Lactic Acid Calcium Ionized Calcium Phosphorus Magnesium Total Bilirubin AST ALT Alkaline Phosphatase Ammonia Total Creatine Kinase CK-MB (CK-2) CK-MB (CK-2) Rel Index Total Protein Albumin Urine WBC (Auto) Vancomycin Trough Salicylates Acetaminophen Plasma/Serum Alcohol Crossmatch 01/12/20 01/12/20 01/13/20 13:39 18:02 00:27 WBC RBC Hgb Hct MCH RDW Plt Count Lymph % (Auto) [place] % (Auto) [place] # Baso # Seg Neutrophils % Seg Neuts % (Manual) Lymphocytes % (Manual) Monocytes % (Manual) Seg Neutrophils # Seg Neutrophils # Man Lymphocytes # (Manual) Monocytes # (Manual) Eosinophils # (Manual) Basophils # (Manual) PT INR APTT ABG pH ABG pO2 ABG HCO3 ABG O2 Saturation ABG Base Excess ABG Hemoglobin Oxyhemoglobin Sodium Potassium Chloride Carbon Dioxide BUN Creatinine Glucose POC Glucose 146 H 125 H 131 H Lactic Acid Calcium Ionized Calcium Phosphorus Magnesium Total Bilirubin AST ALT Alkaline Phosphatase Ammonia Total Creatine Kinase CK-MB (CK-2) CK-MB (CK-2) Rel Index Total Protein Albumin Urine WBC (Auto) Vancomycin Trough Salicylates Acetaminophen Plasma/Serum Alcohol Crossmatch 01/13/20 01/13/20 01/13/20 05:44 11:54 17:18 WBC RBC Hgb Hct MCH RDW Plt Count Lymph % (Auto) [place] % (Auto) [place] # Baso # Seg Neutrophils % Seg Neuts % (Manual) Lymphocytes % (Manual) Monocytes % (Manual) Seg Neutrophils # Seg Neutrophils # Man Lymphocytes # (Manual) Monocytes # (Manual) Eosinophils # (Manual) Basophils # (Manual) PT INR APTT ABG pH ABG pO2 ABG HCO3 ABG O2 Saturation ABG Base Excess ABG Hemoglobin Oxyhemoglobin Sodium Potassium Chloride Carbon Dioxide BUN Creatinine Glucose POC Glucose 148 H 140 H 130 H Lactic Acid Calcium Ionized Calcium Phosphorus Magnesium Total Bilirubin AST ALT Alkaline Phosphatase Ammonia Total Creatine Kinase CK-MB (CK-2) CK-MB (CK-2) Rel Index Total Protein Albumin Urine WBC (Auto) Vancomycin Trough Salicylates Acetaminophen Plasma/Serum Alcohol Crossmatch 01/14/20 01/14/20 01/14/20 00:16 05:45 12:19 WBC RBC Hgb Hct MCH RDW Plt Count Lymph % (Auto) [place] % (Auto) [place] # Baso # Seg Neutrophils % Seg Neuts % (Manual) Lymphocytes % (Manual) Monocytes % (Manual) Seg Neutrophils # Seg Neutrophils # Man Lymphocytes # (Manual) Monocytes # (Manual) Eosinophils # (Manual) Basophils # (Manual) PT INR APTT ABG pH ABG pO2 ABG HCO3 ABG O2 Saturation ABG Base Excess ABG Hemoglobin Oxyhemoglobin Sodium Potassium Chloride Carbon Dioxide BUN Creatinine Glucose POC Glucose 125 H 146 H 147 H Lactic Acid Calcium Ionized Calcium Phosphorus Magnesium Total Bilirubin AST ALT Alkaline Phosphatase Ammonia Total Creatine Kinase CK-MB (CK-2) CK-MB (CK-2) Rel Index Total Protein Albumin Urine WBC (Auto) Vancomycin Trough Salicylates Acetaminophen Plasma/Serum Alcohol Crossmatch 01/14/20 01/14/20 01/15/20 18:10 23:54 05:14 WBC RBC Hgb Hct MCH RDW Plt Count Lymph % (Auto) [place] % (Auto) [place] # Baso # Seg Neutrophils % Seg Neuts % (Manual) Lymphocytes % (Manual) Monocytes % (Manual) Seg Neutrophils # Seg Neutrophils # Man Lymphocytes # (Manual) Monocytes # (Manual) Eosinophils # (Manual) Basophils # (Manual) PT INR APTT ABG pH ABG pO2 ABG HCO3 ABG O2 Saturation ABG Base Excess ABG Hemoglobin Oxyhemoglobin Sodium Potassium Chloride Carbon Dioxide BUN Creatinine Glucose POC Glucose 136 H 109 H 111 H Lactic Acid Calcium Ionized Calcium Phosphorus Magnesium Total Bilirubin AST ALT Alkaline Phosphatase Ammonia Total Creatine Kinase CK-MB (CK-2) CK-MB (CK-2) Rel Index Total Protein Albumin Urine WBC (Auto) Vancomycin Trough Salicylates Acetaminophen Plasma/Serum Alcohol Crossmatch 01/15/20 01/15/20 01/16/20 12:34 23:25 05:06 WBC RBC Hgb Hct MCH RDW Plt Count Lymph % (Auto) [place] % (Auto) [place] # Baso # Seg Neutrophils % Seg Neuts % (Manual) Lymphocytes % (Manual) Monocytes % (Manual) Seg Neutrophils # Seg Neutrophils # Man Lymphocytes # (Manual) Monocytes # (Manual) Eosinophils # (Manual) Basophils # (Manual) PT INR APTT ABG pH ABG pO2 ABG HCO3 ABG O2 Saturation ABG Base Excess ABG Hemoglobin Oxyhemoglobin Sodium Potassium Chloride Carbon Dioxide BUN Creatinine Glucose POC Glucose 131 H 120 H 121 H Lactic Acid Calcium Ionized Calcium Phosphorus Magnesium Total Bilirubin AST ALT Alkaline Phosphatase Ammonia Total Creatine Kinase CK-MB (CK-2) CK-MB (CK-2) Rel Index Total Protein Albumin Urine WBC (Auto) Vancomycin Trough Salicylates Acetaminophen Plasma/Serum Alcohol Crossmatch 01/16/20 01/16/20 01/17/20 12:15 23:46 05:32 WBC 13.6 H RBC 3.27 L Hgb 9.3 L Hct 28.5 L MCH RDW 17.0 H Plt Count 490 H Lymph % (Auto) 13.1 L [place] % (Auto) [place] # 1.0 H Baso # Seg Neutrophils % 77.5 H Seg Neuts % (Manual) Lymphocytes % (Manual) Monocytes % (Manual) Seg Neutrophils # 10.5 H Seg Neutrophils # Man Lymphocytes # (Manual) Monocytes # (Manual) Eosinophils # (Manual) Basophils # (Manual) PT INR APTT ABG pH ABG pO2 ABG HCO3 ABG O2 Saturation ABG Base Excess ABG Hemoglobin Oxyhemoglobin Sodium Potassium Chloride Carbon Dioxide BUN Creatinine Glucose POC Glucose 152 H 107 H Lactic Acid Calcium Ionized Calcium Phosphorus Magnesium Total Bilirubin AST ALT Alkaline Phosphatase Ammonia Total Creatine Kinase CK-MB (CK-2) CK-MB (CK-2) Rel Index Total Protein Albumin Urine WBC (Auto) Vancomycin Trough Salicylates Acetaminophen Plasma/Serum Alcohol Crossmatch 01/17/20 01/17/20 01/17/20 06:47 12:16 17:21 WBC RBC Hgb Hct MCH RDW Plt Count Lymph % (Auto) [place] % (Auto) [place] # Baso # Seg Neutrophils % Seg Neuts % (Manual) Lymphocytes % (Manual) Monocytes % (Manual) Seg Neutrophils # Seg Neutrophils # Man Lymphocytes # (Manual) Monocytes # (Manual) Eosinophils # (Manual) Basophils # (Manual) PT INR APTT ABG pH ABG pO2 ABG HCO3 ABG O2 Saturation ABG Base Excess ABG Hemoglobin Oxyhemoglobin Sodium Potassium Chloride Carbon Dioxide BUN Creatinine Glucose POC Glucose 112 H 145 H 150 H Lactic Acid Calcium Ionized Calcium Phosphorus Magnesium Total Bilirubin AST ALT Alkaline Phosphatase Ammonia Total Creatine Kinase CK-MB (CK-2) CK-MB (CK-2) Rel Index Total Protein Albumin Urine WBC (Auto) Vancomycin Trough Salicylates Acetaminophen Plasma/Serum Alcohol Crossmatch 01/17/20 01/18/20 01/18/20 23:34 05:47 12:43 WBC RBC Hgb Hct MCH RDW Plt Count Lymph % (Auto) [place] % (Auto) [place] # Baso # Seg Neutrophils % Seg Neuts % (Manual) Lymphocytes % (Manual) Monocytes % (Manual) Seg Neutrophils # Seg Neutrophils # Man Lymphocytes # (Manual) Monocytes # (Manual) Eosinophils # (Manual) Basophils # (Manual) PT INR APTT ABG pH ABG pO2 ABG HCO3 ABG O2 Saturation ABG Base Excess ABG Hemoglobin Oxyhemoglobin Sodium Potassium Chloride Carbon Dioxide BUN Creatinine Glucose POC Glucose 160 H 130 H 124 H Lactic Acid Calcium Ionized Calcium Phosphorus Magnesium Total Bilirubin AST ALT Alkaline Phosphatase Ammonia Total Creatine Kinase CK-MB (CK-2) CK-MB (CK-2) Rel Index Total Protein Albumin Urine WBC (Auto) Vancomycin Trough Salicylates Acetaminophen Plasma/Serum Alcohol Crossmatch 01/18/20 01/19/20 01/19/20 18:26 00:14 06:24 WBC RBC Hgb Hct MCH RDW Plt Count Lymph % (Auto) [place] % (Auto) [place] # Baso # Seg Neutrophils % Seg Neuts % (Manual) Lymphocytes % (Manual) Monocytes % (Manual) Seg Neutrophils # Seg Neutrophils # Man Lymphocytes # (Manual) Monocytes # (Manual) Eosinophils # (Manual) Basophils # (Manual) PT INR APTT ABG pH ABG pO2 ABG HCO3 ABG O2 Saturation ABG Base Excess ABG Hemoglobin Oxyhemoglobin Sodium Potassium Chloride Carbon Dioxide BUN Creatinine Glucose POC Glucose 119 H 114 H 144 H Lactic Acid Calcium Ionized Calcium Phosphorus Magnesium Total Bilirubin AST ALT Alkaline Phosphatase Ammonia Total Creatine Kinase CK-MB (CK-2) CK-MB (CK-2) Rel Index Total Protein Albumin Urine WBC (Auto) Vancomycin Trough Salicylates Acetaminophen Plasma/Serum Alcohol Crossmatch 01/19/20 01/19/20 01/20/20 12:24 17:50 12:06 WBC RBC Hgb Hct MCH RDW Plt Count Lymph % (Auto) [place] % (Auto) [place] # Baso # Seg Neutrophils % Seg Neuts % (Manual) Lymphocytes % (Manual) Monocytes % (Manual) Seg Neutrophils # Seg Neutrophils # Man Lymphocytes # (Manual) Monocytes # (Manual) Eosinophils # (Manual) Basophils # (Manual) PT INR APTT ABG pH ABG pO2 ABG HCO3 ABG O2 Saturation ABG Base Excess ABG Hemoglobin Oxyhemoglobin Sodium Potassium Chloride Carbon Dioxide BUN Creatinine Glucose POC Glucose 132 H 144 H 135 H Lactic Acid Calcium Ionized Calcium Phosphorus Magnesium Total Bilirubin AST ALT Alkaline Phosphatase Ammonia Total Creatine Kinase CK-MB (CK-2) CK-MB (CK-2) Rel Index Total Protein Albumin Urine WBC (Auto) Vancomycin Trough Salicylates Acetaminophen Plasma/Serum Alcohol Crossmatch 01/21/20 01/21/20 01/21/20 05:46 13:02 23:49 WBC RBC Hgb Hct MCH RDW Plt Count Lymph % (Auto) [place] % (Auto) [place] # Baso # Seg Neutrophils % Seg Neuts % (Manual) Lymphocytes % (Manual) Monocytes % (Manual) Seg Neutrophils # Seg Neutrophils # Man Lymphocytes # (Manual) Monocytes # (Manual) Eosinophils # (Manual) Basophils # (Manual) PT INR APTT ABG pH ABG pO2 ABG HCO3 ABG O2 Saturation ABG Base Excess ABG Hemoglobin Oxyhemoglobin Sodium Potassium Chloride Carbon Dioxide BUN Creatinine Glucose POC Glucose 114 H 136 H 120 H Lactic Acid Calcium Ionized Calcium Phosphorus Magnesium Total Bilirubin AST ALT Alkaline Phosphatase Ammonia Total Creatine Kinase CK-MB (CK-2) CK-MB (CK-2) Rel Index Total Protein Albumin Urine WBC (Auto) Vancomycin Trough Salicylates Acetaminophen Plasma/Serum Alcohol Crossmatch 01/22/20 01/22/20 01/22/20 05:41 11:44 16:31 WBC RBC Hgb Hct MCH RDW Plt Count Lymph % (Auto) [place] % (Auto) [place] # Baso # Seg Neutrophils % Seg Neuts % (Manual) Lymphocytes % (Manual) Monocytes % (Manual) Seg Neutrophils # Seg Neutrophils # Man Lymphocytes # (Manual) Monocytes # (Manual) Eosinophils # (Manual) Basophils # (Manual) PT INR APTT ABG pH ABG pO2 ABG HCO3 ABG O2 Saturation ABG Base Excess ABG Hemoglobin Oxyhemoglobin Sodium Potassium Chloride Carbon Dioxide BUN Creatinine Glucose POC Glucose 124 H 173 H 111 H Lactic Acid Calcium Ionized Calcium Phosphorus Magnesium Total Bilirubin AST ALT Alkaline Phosphatase Ammonia Total Creatine Kinase CK-MB (CK-2) CK-MB (CK-2) Rel Index Total Protein Albumin Urine WBC (Auto) Vancomycin Trough Salicylates Acetaminophen Plasma/Serum Alcohol Crossmatch 01/22/20 01/23/20 01/23/20 23:25 05:15 12:15 WBC RBC Hgb Hct MCH RDW Plt Count Lymph % (Auto) [place] % (Auto) [place] # Baso # Seg Neutrophils % Seg Neuts % (Manual) Lymphocytes % (Manual) Monocytes % (Manual) Seg Neutrophils # Seg Neutrophils # Man Lymphocytes # (Manual) Monocytes # (Manual) Eosinophils # (Manual) Basophils # (Manual) PT INR APTT ABG pH ABG pO2 ABG HCO3 ABG O2 Saturation ABG Base Excess ABG Hemoglobin Oxyhemoglobin Sodium Potassium Chloride Carbon Dioxide BUN Creatinine Glucose POC Glucose 134 H 117 H 129 H Lactic Acid Calcium Ionized Calcium Phosphorus Magnesium Total Bilirubin AST ALT Alkaline Phosphatase Ammonia Total Creatine Kinase CK-MB (CK-2) CK-MB (CK-2) Rel Index Total Protein Albumin Urine WBC (Auto) Vancomycin Trough Salicylates Acetaminophen Plasma/Serum Alcohol Crossmatch 01/23/20 01/23/20 01/23/20 16:58 21:17 23:47 WBC RBC Hgb Hct MCH RDW Plt Count Lymph % (Auto) [place] % (Auto) [place] # Baso # Seg Neutrophils % Seg Neuts % (Manual) Lymphocytes % (Manual) Monocytes % (Manual) Seg Neutrophils # Seg Neutrophils # Man Lymphocytes # (Manual) Monocytes # (Manual) Eosinophils # (Manual) Basophils # (Manual) PT INR APTT ABG pH ABG pO2 ABG HCO3 ABG O2 Saturation ABG Base Excess ABG Hemoglobin Oxyhemoglobin Sodium Potassium Chloride Carbon Dioxide BUN Creatinine Glucose POC Glucose 156 H 185 H 156 H Lactic Acid Calcium Ionized Calcium Phosphorus Magnesium Total Bilirubin AST ALT Alkaline Phosphatase Ammonia Total Creatine Kinase CK-MB (CK-2) CK-MB (CK-2) Rel Index Total Protein Albumin Urine WBC (Auto) Vancomycin Trough Salicylates Acetaminophen Plasma/Serum Alcohol Crossmatch 01/24/20 01/24/20 01/24/20 04:47 04:47 05:59 WBC 17.8 H RBC 3.60 L Hgb Hct MCH RDW 16.2 H Plt Count 688 H Lymph % (Auto) 11.8 L [place] % (Auto) 7.5 H [place] # 1.3 H Baso # Seg Neutrophils % 79.9 H Seg Neuts % (Manual) Lymphocytes % (Manual) Monocytes % (Manual) Seg Neutrophils # 14.2 H Seg Neutrophils # Man Lymphocytes # (Manual) Monocytes # (Manual) Eosinophils # (Manual) Basophils # (Manual) PT INR APTT ABG pH ABG pO2 ABG HCO3 ABG O2 Saturation ABG Base Excess ABG Hemoglobin Oxyhemoglobin Sodium 131 L Potassium Chloride 91.2 L Carbon Dioxide BUN 22 H Creatinine 0.3 L Glucose 123 H POC Glucose 147 H Lactic Acid Calcium 10.9 H Ionized Calcium Phosphorus Magnesium Total Bilirubin AST ALT Alkaline Phosphatase Ammonia Total Creatine Kinase CK-MB (CK-2) CK-MB (CK-2) Rel Index Total Protein Albumin Urine WBC (Auto) Vancomycin Trough Salicylates Acetaminophen Plasma/Serum Alcohol Crossmatch 01/24/20 01/24/20 01/25/20 11:47 16:45 00:18 WBC RBC Hgb Hct MCH RDW Plt Count Lymph % (Auto) [place] % (Auto) [place] # Baso # Seg Neutrophils % Seg Neuts % (Manual) Lymphocytes % (Manual) Monocytes % (Manual) Seg Neutrophils # Seg Neutrophils # Man Lymphocytes # (Manual) Monocytes # (Manual) Eosinophils # (Manual) Basophils # (Manual) PT INR APTT ABG pH ABG pO2 ABG HCO3 ABG O2 Saturation ABG Base Excess ABG Hemoglobin Oxyhemoglobin Sodium Potassium Chloride Carbon Dioxide BUN Creatinine Glucose POC Glucose 114 H 108 H 119 H Lactic Acid Calcium Ionized Calcium Phosphorus Magnesium Total Bilirubin AST ALT Alkaline Phosphatase Ammonia Total Creatine Kinase CK-MB (CK-2) CK-MB (CK-2) Rel Index Total Protein Albumin Urine WBC (Auto) Vancomycin Trough Salicylates Acetaminophen Plasma/Serum Alcohol Crossmatch 01/25/20 01/25/20 01/25/20 07:18 11:58 16:56 WBC RBC Hgb Hct MCH RDW Plt Count Lymph % (Auto) [place] % (Auto) [place] # Baso # Seg Neutrophils % Seg Neuts % (Manual) Lymphocytes % (Manual) Monocytes % (Manual) Seg Neutrophils # Seg Neutrophils # Man Lymphocytes # (Manual) Monocytes # (Manual) Eosinophils # (Manual) Basophils # (Manual) PT INR APTT ABG pH ABG pO2 ABG HCO3 ABG O2 Saturation ABG Base Excess ABG Hemoglobin Oxyhemoglobin Sodium Potassium Chloride Carbon Dioxide BUN Creatinine Glucose POC Glucose 136 H 136 H 147 H Lactic Acid Calcium Ionized Calcium Phosphorus Magnesium Total Bilirubin AST ALT Alkaline Phosphatase Ammonia Total Creatine Kinase CK-MB (CK-2) CK-MB (CK-2) Rel Index Total Protein Albumin Urine WBC (Auto) Vancomycin Trough Salicylates Acetaminophen Plasma/Serum Alcohol Crossmatch 01/26/20 01/26/20 01/26/20 00:29 05:59 05:59 WBC 12.8 H RBC Hgb Hct MCH RDW 16.4 H Plt Count 743 H Lymph % (Auto) [place] % (Auto) [place] # 0.9 H Baso # Seg Neutrophils % 76.2 H Seg Neuts % (Manual) Lymphocytes % (Manual) Monocytes % (Manual) Seg Neutrophils # 9.8 H Seg Neutrophils # Man Lymphocytes # (Manual) Monocytes # (Manual) Eosinophils # (Manual) Basophils # (Manual) PT INR APTT ABG pH ABG pO2 ABG HCO3 ABG O2 Saturation ABG Base Excess ABG Hemoglobin Oxyhemoglobin Sodium 132 L Potassium Chloride 90.9 L Carbon Dioxide BUN 23 H Creatinine 0.4 L Glucose 122 H POC Glucose 107 H Lactic Acid Calcium 11.0 H Ionized Calcium Phosphorus Magnesium Total Bilirubin AST ALT Alkaline Phosphatase Ammonia Total Creatine Kinase CK-MB (CK-2) CK-MB (CK-2) Rel Index Total Protein Albumin Urine WBC (Auto) Vancomycin Trough Salicylates Acetaminophen Plasma/Serum Alcohol Crossmatch 01/26/20 01/26/20 01/26/20 06:27 12:06 16:49 WBC RBC Hgb Hct MCH RDW Plt Count Lymph % (Auto) [place] % (Auto) [place] # Baso # Seg Neutrophils % Seg Neuts % (Manual) Lymphocytes % (Manual) Monocytes % (Manual) Seg Neutrophils # Seg Neutrophils # Man Lymphocytes # (Manual) Monocytes # (Manual) Eosinophils # (Manual) Basophils # (Manual) PT INR APTT ABG pH ABG pO2 ABG HCO3 ABG O2 Saturation ABG Base Excess ABG Hemoglobin Oxyhemoglobin Sodium Potassium Chloride Carbon Dioxide BUN Creatinine Glucose POC Glucose 132 H 132 H 110 H Lactic Acid Calcium Ionized Calcium Phosphorus Magnesium Total Bilirubin AST ALT Alkaline Phosphatase Ammonia Total Creatine Kinase CK-MB (CK-2) CK-MB (CK-2) Rel Index Total Protein Albumin Urine WBC (Auto) Vancomycin Trough Salicylates Acetaminophen Plasma/Serum Alcohol Crossmatch 01/27/20 01/27/20 01/27/20 00:08 11:49 16:24 WBC RBC Hgb Hct MCH RDW Plt Count Lymph % (Auto) [place] % (Auto) [place] # Baso # Seg Neutrophils % Seg Neuts % (Manual) Lymphocytes % (Manual) Monocytes % (Manual) Seg Neutrophils # Seg Neutrophils # Man Lymphocytes # (Manual) Monocytes # (Manual) Eosinophils # (Manual) Basophils # (Manual) PT INR APTT ABG pH ABG pO2 ABG HCO3 ABG O2 Saturation ABG Base Excess ABG Hemoglobin Oxyhemoglobin Sodium Potassium Chloride Carbon Dioxide BUN Creatinine Glucose POC Glucose 107 H 119 H 129 H Lactic Acid Calcium Ionized Calcium Phosphorus Magnesium Total Bilirubin AST ALT Alkaline Phosphatase Ammonia Total Creatine Kinase CK-MB (CK-2) CK-MB (CK-2) Rel Index Total Protein Albumin Urine WBC (Auto) Vancomycin Trough Salicylates Acetaminophen Plasma/Serum Alcohol Crossmatch 01/27/20 01/28/20 01/28/20 18:28 01:00 06:22 WBC RBC Hgb Hct MCH RDW Plt Count Lymph % (Auto) [place] % (Auto) [place] # Baso # Seg Neutrophils % Seg Neuts % (Manual) Lymphocytes % (Manual) Monocytes % (Manual) Seg Neutrophils # Seg Neutrophils # Man Lymphocytes # (Manual) Monocytes # (Manual) Eosinophils # (Manual) Basophils # (Manual) PT INR APTT ABG pH ABG pO2 ABG HCO3 ABG O2 Saturation ABG Base Excess ABG Hemoglobin Oxyhemoglobin Sodium Potassium Chloride Carbon Dioxide BUN Creatinine Glucose POC Glucose 126 H 121 H 114 H Lactic Acid Calcium Ionized Calcium Phosphorus Magnesium Total Bilirubin AST ALT Alkaline Phosphatase Ammonia Total Creatine Kinase CK-MB (CK-2) CK-MB (CK-2) Rel Index Total Protein Albumin Urine WBC (Auto) Vancomycin Trough Salicylates Acetaminophen Plasma/Serum Alcohol Crossmatch 01/28/20 01/28/20 01/29/20 11:47 18:00 00:05 WBC RBC Hgb Hct MCH RDW Plt Count Lymph % (Auto) [place] % (Auto) [place] # Baso # Seg Neutrophils % Seg Neuts % (Manual) Lymphocytes % (Manual) Monocytes % (Manual) Seg Neutrophils # Seg Neutrophils # Man Lymphocytes # (Manual) Monocytes # (Manual) Eosinophils # (Manual) Basophils # (Manual) PT INR APTT ABG pH ABG pO2 ABG HCO3 ABG O2 Saturation ABG Base Excess ABG Hemoglobin Oxyhemoglobin Sodium Potassium Chloride Carbon Dioxide BUN Creatinine Glucose POC Glucose 106 H 117 H 127 H Lactic Acid Calcium Ionized Calcium Phosphorus Magnesium Total Bilirubin AST ALT Alkaline Phosphatase Ammonia Total Creatine Kinase CK-MB (CK-2) CK-MB (CK-2) Rel Index Total Protein Albumin Urine WBC (Auto) Vancomycin Trough Salicylates Acetaminophen Plasma/Serum Alcohol Crossmatch 01/29/20 01/29/20 01/29/20 06:04 11:40 16:38 WBC RBC Hgb Hct MCH RDW Plt Count Lymph % (Auto) [place] % (Auto) [place] # Baso # Seg Neutrophils % Seg Neuts % (Manual) Lymphocytes % (Manual) Monocytes % (Manual) Seg Neutrophils # Seg Neutrophils # Man Lymphocytes # (Manual) Monocytes # (Manual) Eosinophils # (Manual) Basophils # (Manual) PT INR APTT ABG pH ABG pO2 ABG HCO3 ABG O2 Saturation ABG Base Excess ABG Hemoglobin Oxyhemoglobin Sodium Potassium Chloride Carbon Dioxide BUN Creatinine Glucose POC Glucose 147 H 139 H 143 H Lactic Acid Calcium Ionized Calcium Phosphorus Magnesium Total Bilirubin AST ALT Alkaline Phosphatase Ammonia Total Creatine Kinase CK-MB (CK-2) CK-MB (CK-2) Rel Index Total Protein Albumin Urine WBC (Auto) Vancomycin Trough Salicylates Acetaminophen Plasma/Serum Alcohol Crossmatch 01/29/20 01/30/20 01/30/20 23:46 06:43 12:07 WBC RBC Hgb Hct MCH RDW Plt Count Lymph % (Auto) [place] % (Auto) [place] # Baso # Seg Neutrophils % Seg Neuts % (Manual) Lymphocytes % (Manual) Monocytes % (Manual) Seg Neutrophils # Seg Neutrophils # Man Lymphocytes # (Manual) Monocytes # (Manual) Eosinophils # (Manual) Basophils # (Manual) PT INR APTT ABG pH ABG pO2 ABG HCO3 ABG O2 Saturation ABG Base Excess ABG Hemoglobin Oxyhemoglobin Sodium Potassium Chloride Carbon Dioxide BUN Creatinine Glucose POC Glucose 122 H 122 H 134 H Lactic Acid Calcium Ionized Calcium Phosphorus Magnesium Total Bilirubin AST ALT Alkaline Phosphatase Ammonia Total Creatine Kinase CK-MB (CK-2) CK-MB (CK-2) Rel Index Total Protein Albumin Urine WBC (Auto) Vancomycin Trough Salicylates Acetaminophen Plasma/Serum Alcohol Crossmatch 01/30/20 01/31/20 01/31/20 17:59 00:52 05:54 WBC RBC Hgb Hct MCH RDW Plt Count Lymph % (Auto) [place] % (Auto) [place] # Baso # Seg Neutrophils % Seg Neuts % (Manual) Lymphocytes % (Manual) Monocytes % (Manual) Seg Neutrophils # Seg Neutrophils # Man Lymphocytes # (Manual) Monocytes # (Manual) Eosinophils # (Manual) Basophils # (Manual) PT INR APTT ABG pH ABG pO2 ABG HCO3 ABG O2 Saturation ABG Base Excess ABG Hemoglobin Oxyhemoglobin Sodium Potassium Chloride Carbon Dioxide BUN Creatinine Glucose POC Glucose 116 H 127 H 127 H Lactic Acid Calcium Ionized Calcium Phosphorus Magnesium Total Bilirubin AST ALT Alkaline Phosphatase Ammonia Total Creatine Kinase CK-MB (CK-2) CK-MB (CK-2) Rel Index Total Protein Albumin Urine WBC (Auto) Vancomycin Trough Salicylates Acetaminophen Plasma/Serum Alcohol Crossmatch 01/31/20 02/01/20 02/01/20 12:20 00:48 12:21 WBC RBC Hgb Hct MCH RDW Plt Count Lymph % (Auto) [place] % (Auto) [place] # Baso # Seg Neutrophils % Seg Neuts % (Manual) Lymphocytes % (Manual) Monocytes % (Manual) Seg Neutrophils # Seg Neutrophils # Man Lymphocytes # (Manual) Monocytes # (Manual) Eosinophils # (Manual) Basophils # (Manual) PT INR APTT ABG pH ABG pO2 ABG HCO3 ABG O2 Saturation ABG Base Excess ABG Hemoglobin Oxyhemoglobin Sodium Potassium Chloride Carbon Dioxide BUN Creatinine Glucose POC Glucose 126 H 154 H 123 H Lactic Acid Calcium Ionized Calcium Phosphorus Magnesium Total Bilirubin AST ALT Alkaline Phosphatase Ammonia Total Creatine Kinase CK-MB (CK-2) CK-MB (CK-2) Rel Index Total Protein Albumin Urine WBC (Auto) Vancomycin Trough Salicylates Acetaminophen Plasma/Serum Alcohol Crossmatch 02/01/20 02/02/20 02/02/20 23:58 06:08 11:50 WBC RBC Hgb Hct MCH RDW Plt Count Lymph % (Auto) [place] % (Auto) [place] # Baso # Seg Neutrophils % Seg Neuts % (Manual) Lymphocytes % (Manual) Monocytes % (Manual) Seg Neutrophils # Seg Neutrophils # Man Lymphocytes # (Manual) Monocytes # (Manual) Eosinophils # (Manual) Basophils # (Manual) PT INR APTT ABG pH ABG pO2 ABG HCO3 ABG O2 Saturation ABG Base Excess ABG Hemoglobin Oxyhemoglobin Sodium Potassium Chloride Carbon Dioxide BUN Creatinine Glucose POC Glucose 125 H 144 H 131 H Lactic Acid Calcium Ionized Calcium Phosphorus Magnesium Total Bilirubin AST ALT Alkaline Phosphatase Ammonia Total Creatine Kinase CK-MB (CK-2) CK-MB (CK-2) Rel Index Total Protein Albumin Urine WBC (Auto) Vancomycin Trough Salicylates Acetaminophen Plasma/Serum Alcohol Crossmatch 02/02/20 02/03/20 02/03/20 17:53 00:14 05:47 WBC RBC Hgb Hct MCH RDW Plt Count Lymph % (Auto) [place] % (Auto) [place] # Baso # Seg Neutrophils % Seg Neuts % (Manual) Lymphocytes % (Manual) Monocytes % (Manual) Seg Neutrophils # Seg Neutrophils # Man Lymphocytes # (Manual) Monocytes # (Manual) Eosinophils # (Manual) Basophils # (Manual) PT INR APTT ABG pH ABG pO2 ABG HCO3 ABG O2 Saturation ABG Base Excess ABG Hemoglobin Oxyhemoglobin Sodium Potassium Chloride Carbon Dioxide BUN Creatinine Glucose POC Glucose 108 H 122 H 118 H Lactic Acid Calcium Ionized Calcium Phosphorus Magnesium Total Bilirubin AST ALT Alkaline Phosphatase Ammonia Total Creatine Kinase CK-MB (CK-2) CK-MB (CK-2) Rel Index Total Protein Albumin Urine WBC (Auto) Vancomycin Trough Salicylates Acetaminophen Plasma/Serum Alcohol Crossmatch 02/03/20 02/03/20 02/03/20 05:59 05:59 11:49 WBC RBC 3.48 L Hgb Hct 29.9 L MCH RDW 16.2 H Plt Count 707 H Lymph % (Auto) [place] % (Auto) 9.3 H [place] # 0.9 H Baso # Seg Neutrophils % Seg Neuts % (Manual) Lymphocytes % (Manual) Monocytes % (Manual) Seg Neutrophils # Seg Neutrophils # Man Lymphocytes # (Manual) Monocytes # (Manual) Eosinophils # (Manual) Basophils # (Manual) PT INR APTT ABG pH ABG pO2 ABG HCO3 ABG O2 Saturation ABG Base Excess ABG Hemoglobin Oxyhemoglobin Sodium 136 L Potassium Chloride 93.4 L Carbon Dioxide BUN 20 H Creatinine 0.5 L Glucose 101 H POC Glucose 133 H Lactic Acid Calcium 10.8 H Ionized Calcium Phosphorus Magnesium Total Bilirubin AST ALT Alkaline Phosphatase Ammonia Total Creatine Kinase CK-MB (CK-2) CK-MB (CK-2) Rel Index Total Protein Albumin Urine WBC (Auto) Vancomycin Trough Salicylates Acetaminophen Plasma/Serum Alcohol Crossmatch 02/03/20 02/04/20 02/04/20 23:19 05:37 23:56 WBC RBC Hgb Hct MCH RDW Plt Count Lymph % (Auto) [place] % (Auto) [place] # Baso # Seg Neutrophils % Seg Neuts % (Manual) Lymphocytes % (Manual) Monocytes % (Manual) Seg Neutrophils # Seg Neutrophils # Man Lymphocytes # (Manual) Monocytes # (Manual) Eosinophils # (Manual) Basophils # (Manual) PT INR APTT ABG pH ABG pO2 ABG HCO3 ABG O2 Saturation ABG Base Excess ABG Hemoglobin Oxyhemoglobin Sodium Potassium Chloride Carbon Dioxide BUN Creatinine Glucose POC Glucose 135 H 108 H 158 H Lactic Acid Calcium Ionized Calcium Phosphorus Magnesium Total Bilirubin AST ALT Alkaline Phosphatase Ammonia Total Creatine Kinase CK-MB (CK-2) CK-MB (CK-2) Rel Index Total Protein Albumin Urine WBC (Auto) Vancomycin Trough Salicylates Acetaminophen Plasma/Serum Alcohol Crossmatch 02/05/20 02/05/20 02/06/20 05:33 23:24 05:50 WBC RBC Hgb Hct MCH RDW Plt Count Lymph % (Auto) [place] % (Auto) [place] # Baso # Seg Neutrophils % Seg Neuts % (Manual) Lymphocytes % (Manual) Monocytes % (Manual) Seg Neutrophils # Seg Neutrophils # Man Lymphocytes # (Manual) Monocytes # (Manual) Eosinophils # (Manual) Basophils # (Manual) PT INR APTT ABG pH ABG pO2 ABG HCO3 ABG O2 Saturation ABG Base Excess ABG Hemoglobin Oxyhemoglobin Sodium Potassium Chloride Carbon Dioxide BUN Creatinine Glucose POC Glucose 152 H 158 H 110 H Lactic Acid Calcium Ionized Calcium Phosphorus Magnesium Total Bilirubin AST ALT Alkaline Phosphatase Ammonia Total Creatine Kinase CK-MB (CK-2) CK-MB (CK-2) Rel Index Total Protein Albumin Urine WBC (Auto) Vancomycin Trough Salicylates Acetaminophen Plasma/Serum Alcohol Crossmatch 02/06/20 02/07/20 02/07/20 16:03 00:13 05:27 WBC RBC Hgb Hct MCH RDW Plt Count Lymph % (Auto) [place] % (Auto) [place] # Baso # Seg Neutrophils % Seg Neuts % (Manual) Lymphocytes % (Manual) Monocytes % (Manual) Seg Neutrophils # Seg Neutrophils # Man Lymphocytes # (Manual) Monocytes # (Manual) Eosinophils # (Manual) Basophils # (Manual) PT INR APTT ABG pH ABG pO2 ABG HCO3 ABG O2 Saturation ABG Base Excess ABG Hemoglobin Oxyhemoglobin Sodium Potassium Chloride Carbon Dioxide BUN Creatinine Glucose POC Glucose 130 H 115 H 115 H Lactic Acid Calcium Ionized Calcium Phosphorus Magnesium Total Bilirubin AST ALT Alkaline Phosphatase Ammonia Total Creatine Kinase CK-MB (CK-2) CK-MB (CK-2) Rel Index Total Protein Albumin Urine WBC (Auto) Vancomycin Trough Salicylates Acetaminophen Plasma/Serum Alcohol Crossmatch 02/07/20 02/07/20 02/08/20 11:42 17:23 00:37 WBC RBC Hgb Hct MCH RDW Plt Count Lymph % (Auto) [place] % (Auto) [place] # Baso # Seg Neutrophils % Seg Neuts % (Manual) Lymphocytes % (Manual) Monocytes % (Manual) Seg Neutrophils # Seg Neutrophils # Man Lymphocytes # (Manual) Monocytes # (Manual) Eosinophils # (Manual) Basophils # (Manual) PT INR APTT ABG pH ABG pO2 ABG HCO3 ABG O2 Saturation ABG Base Excess ABG Hemoglobin Oxyhemoglobin Sodium Potassium Chloride Carbon Dioxide BUN Creatinine Glucose POC Glucose 113 H 114 H 136 H Lactic Acid Calcium Ionized Calcium Phosphorus Magnesium Total Bilirubin AST ALT Alkaline Phosphatase Ammonia Total Creatine Kinase CK-MB (CK-2) CK-MB (CK-2) Rel Index Total Protein Albumin Urine WBC (Auto) Vancomycin Trough Salicylates Acetaminophen Plasma/Serum Alcohol Crossmatch 02/08/20 02/08/20 02/08/20 08:52 11:42 17:02 WBC RBC Hgb Hct MCH RDW Plt Count Lymph % (Auto) [place] % (Auto) [place] # Baso # Seg Neutrophils % Seg Neuts % (Manual) Lymphocytes % (Manual) Monocytes % (Manual) Seg Neutrophils # Seg Neutrophils # Man Lymphocytes # (Manual) Monocytes # (Manual) Eosinophils # (Manual) Basophils # (Manual) PT INR APTT ABG pH ABG pO2 ABG HCO3 ABG O2 Saturation ABG Base Excess ABG Hemoglobin Oxyhemoglobin Sodium 136 L Potassium Chloride 95.7 L Carbon Dioxide BUN 21 H Creatinine 0.4 L Glucose POC Glucose 128 H 145 H Lactic Acid Calcium 10.4 H Ionized Calcium Phosphorus Magnesium Total Bilirubin AST ALT Alkaline Phosphatase Ammonia Total Creatine Kinase CK-MB (CK-2) CK-MB (CK-2) Rel Index Total Protein Albumin Urine WBC (Auto) Vancomycin Trough Salicylates Acetaminophen Plasma/Serum Alcohol Crossmatch 02/09/20 02/09/20 02/09/20 01:05 11:52 16:19 WBC RBC Hgb Hct MCH RDW Plt Count Lymph % (Auto) [place] % (Auto) [place] # Baso # Seg Neutrophils % Seg Neuts % (Manual) Lymphocytes % (Manual) Monocytes % (Manual) Seg Neutrophils # Seg Neutrophils # Man Lymphocytes # (Manual) Monocytes # (Manual) Eosinophils # (Manual) Basophils # (Manual) PT INR APTT ABG pH ABG pO2 ABG HCO3 ABG O2 Saturation ABG Base Excess ABG Hemoglobin Oxyhemoglobin Sodium Potassium Chloride Carbon Dioxide BUN Creatinine Glucose POC Glucose 117 H 141 H 113 H Lactic Acid Calcium Ionized Calcium Phosphorus Magnesium Total Bilirubin AST ALT Alkaline Phosphatase Ammonia Total Creatine Kinase CK-MB (CK-2) CK-MB (CK-2) Rel Index Total Protein Albumin Urine WBC (Auto) Vancomycin Trough Salicylates Acetaminophen Plasma/Serum Alcohol Crossmatch 02/10/20 02/10/20 02/10/20 05:25 12:50 17:08 WBC RBC Hgb Hct MCH RDW Plt Count Lymph % (Auto) [place] % (Auto) [place] # Baso # Seg Neutrophils % Seg Neuts % (Manual) Lymphocytes % (Manual) Monocytes % (Manual) Seg Neutrophils # Seg Neutrophils # Man Lymphocytes # (Manual) Monocytes # (Manual) Eosinophils # (Manual) Basophils # (Manual) PT INR APTT ABG pH ABG pO2 ABG HCO3 ABG O2 Saturation ABG Base Excess ABG Hemoglobin Oxyhemoglobin Sodium Potassium Chloride Carbon Dioxide BUN Creatinine Glucose POC Glucose 136 H 127 H 111 H Lactic Acid Calcium Ionized Calcium Phosphorus Magnesium Total Bilirubin AST ALT Alkaline Phosphatase Ammonia Total Creatine Kinase CK-MB (CK-2) CK-MB (CK-2) Rel Index Total Protein Albumin Urine WBC (Auto) Vancomycin Trough Salicylates Acetaminophen Plasma/Serum Alcohol Crossmatch 02/10/20 02/11/20 02/11/20 23:55 06:11 12:07 WBC RBC Hgb Hct MCH RDW Plt Count Lymph % (Auto) [place] % (Auto) [place] # Baso # Seg Neutrophils % Seg Neuts % (Manual) Lymphocytes % (Manual) Monocytes % (Manual) Seg Neutrophils # Seg Neutrophils # Man Lymphocytes # (Manual) Monocytes # (Manual) Eosinophils # (Manual) Basophils # (Manual) PT INR APTT ABG pH ABG pO2 ABG HCO3 ABG O2 Saturation ABG Base Excess ABG Hemoglobin Oxyhemoglobin Sodium Potassium Chloride Carbon Dioxide BUN Creatinine Glucose POC Glucose 129 H 128 H 141 H Lactic Acid Calcium Ionized Calcium Phosphorus Magnesium Total Bilirubin AST ALT Alkaline Phosphatase Ammonia Total Creatine Kinase CK-MB (CK-2) CK-MB (CK-2) Rel Index Total Protein Albumin Urine WBC (Auto) Vancomycin Trough Salicylates Acetaminophen Plasma/Serum Alcohol Crossmatch 02/11/20 02/12/20 02/13/20 18:22 02:39 06:45 WBC RBC Hgb Hct MCH RDW Plt Count Lymph % (Auto) [place] % (Auto) [place] # Baso # Seg Neutrophils % Seg Neuts % (Manual) Lymphocytes % (Manual) Monocytes % (Manual) Seg Neutrophils # Seg Neutrophils # Man Lymphocytes # (Manual) Monocytes # (Manual) Eosinophils # (Manual) Basophils # (Manual) PT INR APTT ABG pH ABG pO2 ABG HCO3 ABG O2 Saturation ABG Base Excess ABG Hemoglobin Oxyhemoglobin Sodium Potassium Chloride Carbon Dioxide BUN Creatinine Glucose POC Glucose 118 H 107 H 124 H Lactic Acid Calcium Ionized Calcium Phosphorus Magnesium Total Bilirubin AST ALT Alkaline Phosphatase Ammonia Total Creatine Kinase CK-MB (CK-2) CK-MB (CK-2) Rel Index Total Protein Albumin Urine WBC (Auto) Vancomycin Trough Salicylates Acetaminophen Plasma/Serum Alcohol Crossmatch 02/13/20 02/13/20 02/14/20 12:26 18:19 00:21 WBC RBC Hgb Hct MCH RDW Plt Count Lymph % (Auto) [place] % (Auto) [place] # Baso # Seg Neutrophils % Seg Neuts % (Manual) Lymphocytes % (Manual) Monocytes % (Manual) Seg Neutrophils # Seg Neutrophils # Man Lymphocytes # (Manual) Monocytes # (Manual) Eosinophils # (Manual) Basophils # (Manual) PT INR APTT ABG pH ABG pO2 ABG HCO3 ABG O2 Saturation ABG Base Excess ABG Hemoglobin Oxyhemoglobin Sodium Potassium Chloride Carbon Dioxide BUN Creatinine Glucose POC Glucose 124 H 118 H 130 H Lactic Acid Calcium Ionized Calcium Phosphorus Magnesium Total Bilirubin AST ALT Alkaline Phosphatase Ammonia Total Creatine Kinase CK-MB (CK-2) CK-MB (CK-2) Rel Index Total Protein Albumin Urine WBC (Auto) Vancomycin Trough Salicylates Acetaminophen Plasma/Serum Alcohol Crossmatch 02/14/20 02/14/20 02/16/20 11:19 16:16 00:58 WBC RBC Hgb Hct MCH RDW Plt Count Lymph % (Auto) [place] % (Auto) [place] # Baso # Seg Neutrophils % Seg Neuts % (Manual) Lymphocytes % (Manual) Monocytes % (Manual) Seg Neutrophils # Seg Neutrophils # Man Lymphocytes # (Manual) Monocytes # (Manual) Eosinophils # (Manual) Basophils # (Manual) PT INR APTT ABG pH ABG pO2 ABG HCO3 ABG O2 Saturation ABG Base Excess ABG Hemoglobin Oxyhemoglobin Sodium Potassium Chloride Carbon Dioxide BUN Creatinine Glucose POC Glucose 135 H 119 H 121 H Lactic Acid Calcium Ionized Calcium Phosphorus Magnesium Total Bilirubin AST ALT Alkaline Phosphatase Ammonia Total Creatine Kinase CK-MB (CK-2) CK-MB (CK-2) Rel Index Total Protein Albumin Urine WBC (Auto) Vancomycin Trough Salicylates Acetaminophen Plasma/Serum Alcohol Crossmatch 02/16/20 02/16/20 02/16/20 12:12 18:22 23:51 WBC RBC Hgb Hct MCH RDW Plt Count Lymph % (Auto) [place] % (Auto) [place] # Baso # Seg Neutrophils % Seg Neuts % (Manual) Lymphocytes % (Manual) Monocytes % (Manual) Seg Neutrophils # Seg Neutrophils # Man Lymphocytes # (Manual) Monocytes # (Manual) Eosinophils # (Manual) Basophils # (Manual) PT INR APTT ABG pH ABG pO2 ABG HCO3 ABG O2 Saturation ABG Base Excess ABG Hemoglobin Oxyhemoglobin Sodium Potassium Chloride Carbon Dioxide BUN Creatinine Glucose POC Glucose 107 H 106 H 128 H Lactic Acid Calcium Ionized Calcium Phosphorus Magnesium Total Bilirubin AST ALT Alkaline Phosphatase Ammonia Total Creatine Kinase CK-MB (CK-2) CK-MB (CK-2) Rel Index Total Protein Albumin Urine WBC (Auto) Vancomycin Trough Salicylates Acetaminophen Plasma/Serum Alcohol Crossmatch 02/17/20 02/17/20 02/17/20 05:50 07:57 07:57 WBC 12.6 H RBC 3.52 L Hgb Hct MCH RDW 15.3 H Plt Count 643 H Lymph % (Auto) [place] % (Auto) 8.0 H [place] # 1.0 H Baso # Seg Neutrophils % Seg Neuts % (Manual) Lymphocytes % (Manual) Monocytes % (Manual) Seg Neutrophils # 8.5 H Seg Neutrophils # Man Lymphocytes # (Manual) Monocytes # (Manual) Eosinophils # (Manual) Basophils # (Manual) PT INR APTT ABG pH ABG pO2 ABG HCO3 ABG O2 Saturation ABG Base Excess ABG Hemoglobin Oxyhemoglobin Sodium Potassium Chloride 96.9 L Carbon Dioxide BUN 21 H Creatinine 0.4 L Glucose 113 H POC Glucose 116 H Lactic Acid Calcium 10.5 H Ionized Calcium Phosphorus Magnesium Total Bilirubin AST ALT Alkaline Phosphatase Ammonia Total Creatine Kinase CK-MB (CK-2) CK-MB (CK-2) Rel Index Total Protein Albumin Urine WBC (Auto) Vancomycin Trough Salicylates Acetaminophen Plasma/Serum Alcohol Crossmatch 02/17/20 02/17/20 02/18/20 12:05 18:16 00:13 WBC RBC Hgb Hct MCH RDW Plt Count Lymph % (Auto) [place] % (Auto) [place] # Baso # Seg Neutrophils % Seg Neuts % (Manual) Lymphocytes % (Manual) Monocytes % (Manual) Seg Neutrophils # Seg Neutrophils # Man Lymphocytes # (Manual) Monocytes # (Manual) Eosinophils # (Manual) Basophils # (Manual) PT INR APTT ABG pH ABG pO2 ABG HCO3 ABG O2 Saturation ABG Base Excess ABG Hemoglobin Oxyhemoglobin Sodium Potassium Chloride Carbon Dioxide BUN Creatinine Glucose POC Glucose 139 H 127 H 144 H Lactic Acid Calcium Ionized Calcium Phosphorus Magnesium Total Bilirubin AST ALT Alkaline Phosphatase Ammonia Total Creatine Kinase CK-MB (CK-2) CK-MB (CK-2) Rel Index Total Protein Albumin Urine WBC (Auto) Vancomycin Trough Salicylates Acetaminophen Plasma/Serum Alcohol Crossmatch 02/18/20 02/18/20 02/19/20 17:41 23:28 05:17 WBC RBC Hgb Hct MCH RDW Plt Count Lymph % (Auto) [place] % (Auto) [place] # Baso # Seg Neutrophils % Seg Neuts % (Manual) Lymphocytes % (Manual) Monocytes % (Manual) Seg Neutrophils # Seg Neutrophils # Man Lymphocytes # (Manual) Monocytes # (Manual) Eosinophils # (Manual) Basophils # (Manual) PT INR APTT ABG pH ABG pO2 ABG HCO3 ABG O2 Saturation ABG Base Excess ABG Hemoglobin Oxyhemoglobin Sodium Potassium Chloride Carbon Dioxide BUN Creatinine Glucose POC Glucose 118 H 166 H 116 H Lactic Acid Calcium Ionized Calcium Phosphorus Magnesium Total Bilirubin AST ALT Alkaline Phosphatase Ammonia Total Creatine Kinase CK-MB (CK-2) CK-MB (CK-2) Rel Index Total Protein Albumin Urine WBC (Auto) Vancomycin Trough Salicylates Acetaminophen Plasma/Serum Alcohol Crossmatch 02/19/20 02/19/20 02/20/20 12:33 17:02 00:12 WBC RBC Hgb Hct MCH RDW Plt Count Lymph % (Auto) [place] % (Auto) [place] # Baso # Seg Neutrophils % Seg Neuts % (Manual) Lymphocytes % (Manual) Monocytes % (Manual) Seg Neutrophils # Seg Neutrophils # Man Lymphocytes # (Manual) Monocytes # (Manual) Eosinophils # (Manual) Basophils # (Manual) PT INR APTT ABG pH ABG pO2 ABG HCO3 ABG O2 Saturation ABG Base Excess ABG Hemoglobin Oxyhemoglobin Sodium Potassium Chloride Carbon Dioxide BUN Creatinine Glucose POC Glucose 115 H 108 H 153 H Lactic Acid Calcium Ionized Calcium Phosphorus Magnesium Total Bilirubin AST ALT Alkaline Phosphatase Ammonia Total Creatine Kinase CK-MB (CK-2) CK-MB (CK-2) Rel Index Total Protein Albumin Urine WBC (Auto) Vancomycin Trough Salicylates Acetaminophen Plasma/Serum Alcohol Crossmatch 02/20/20 02/20/20 02/21/20 12:00 23:13 05:07 WBC RBC Hgb Hct MCH RDW Plt Count Lymph % (Auto) [place] % (Auto) [place] # Baso # Seg Neutrophils % Seg Neuts % (Manual) Lymphocytes % (Manual) Monocytes % (Manual) Seg Neutrophils # Seg Neutrophils # Man Lymphocytes # (Manual) Monocytes # (Manual) Eosinophils # (Manual) Basophils # (Manual) PT INR APTT ABG pH ABG pO2 ABG HCO3 ABG O2 Saturation ABG Base Excess ABG Hemoglobin Oxyhemoglobin Sodium Potassium Chloride Carbon Dioxide BUN Creatinine Glucose POC Glucose 171 H 129 H 116 H Lactic Acid Calcium Ionized Calcium Phosphorus Magnesium Total Bilirubin AST ALT Alkaline Phosphatase Ammonia Total Creatine Kinase CK-MB (CK-2) CK-MB (CK-2) Rel Index Total Protein Albumin Urine WBC (Auto) Vancomycin Trough Salicylates Acetaminophen Plasma/Serum Alcohol Crossmatch 02/21/20 02/22/20 02/22/20 12:15 00:42 06:30 WBC RBC Hgb Hct MCH RDW Plt Count Lymph % (Auto) [place] % (Auto) [place] # Baso # Seg Neutrophils % Seg Neuts % (Manual) Lymphocytes % (Manual) Monocytes % (Manual) Seg Neutrophils # Seg Neutrophils # Man Lymphocytes # (Manual) Monocytes # (Manual) Eosinophils # (Manual) Basophils # (Manual) PT INR APTT ABG pH ABG pO2 ABG HCO3 ABG O2 Saturation ABG Base Excess ABG Hemoglobin Oxyhemoglobin Sodium Potassium Chloride Carbon Dioxide BUN Creatinine Glucose POC Glucose 124 H 142 H 117 H Lactic Acid Calcium Ionized Calcium Phosphorus Magnesium Total Bilirubin AST ALT Alkaline Phosphatase Ammonia Total Creatine Kinase CK-MB (CK-2) CK-MB (CK-2) Rel Index Total Protein Albumin Urine WBC (Auto) Vancomycin Trough Salicylates Acetaminophen Plasma/Serum Alcohol Crossmatch 02/22/20 02/22/20 02/23/20 12:20 17:55 12:46 WBC RBC Hgb Hct MCH RDW Plt Count Lymph % (Auto) [place] % (Auto) [place] # Baso # Seg Neutrophils % Seg Neuts % (Manual) Lymphocytes % (Manual) Monocytes % (Manual) Seg Neutrophils # Seg Neutrophils # Man Lymphocytes # (Manual) Monocytes # (Manual) Eosinophils # (Manual) Basophils # (Manual) PT INR APTT ABG pH ABG pO2 ABG HCO3 ABG O2 Saturation ABG Base Excess ABG Hemoglobin Oxyhemoglobin Sodium Potassium Chloride Carbon Dioxide BUN Creatinine Glucose POC Glucose 121 H 157 H 112 H Lactic Acid Calcium Ionized Calcium Phosphorus Magnesium Total Bilirubin AST ALT Alkaline Phosphatase Ammonia Total Creatine Kinase CK-MB (CK-2) CK-MB (CK-2) Rel Index Total Protein Albumin Urine WBC (Auto) Vancomycin Trough Salicylates Acetaminophen Plasma/Serum Alcohol Crossmatch 02/23/20 02/24/20 02/24/20 16:47 00:38 07:00 WBC RBC Hgb Hct MCH RDW Plt Count Lymph % (Auto) [place] % (Auto) [place] # Baso # Seg Neutrophils % Seg Neuts % (Manual) Lymphocytes % (Manual) Monocytes % (Manual) Seg Neutrophils # Seg Neutrophils # Man Lymphocytes # (Manual) Monocytes # (Manual) Eosinophils # (Manual) Basophils # (Manual) PT INR APTT ABG pH ABG pO2 ABG HCO3 ABG O2 Saturation ABG Base Excess ABG Hemoglobin Oxyhemoglobin Sodium Potassium Chloride Carbon Dioxide BUN Creatinine Glucose POC Glucose 142 H 138 H 118 H Lactic Acid Calcium Ionized Calcium Phosphorus Magnesium Total Bilirubin AST ALT Alkaline Phosphatase Ammonia Total Creatine Kinase CK-MB (CK-2) CK-MB (CK-2) Rel Index Total Protein Albumin Urine WBC (Auto) Vancomycin Trough Salicylates Acetaminophen Plasma/Serum Alcohol Crossmatch 02/24/20 02/24/20 02/25/20 11:41 18:33 18:24 WBC RBC Hgb Hct MCH RDW Plt Count Lymph % (Auto) [place] % (Auto) [place] # Baso # Seg Neutrophils % Seg Neuts % (Manual) Lymphocytes % (Manual) Monocytes % (Manual) Seg Neutrophils # Seg Neutrophils # Man Lymphocytes # (Manual) Monocytes # (Manual) Eosinophils # (Manual) Basophils # (Manual) PT INR APTT ABG pH ABG pO2 ABG HCO3 ABG O2 Saturation ABG Base Excess ABG Hemoglobin Oxyhemoglobin Sodium Potassium Chloride Carbon Dioxide BUN Creatinine Glucose POC Glucose 152 H 126 H 120 H Lactic Acid Calcium Ionized Calcium Phosphorus Magnesium Total Bilirubin AST ALT Alkaline Phosphatase Ammonia Total Creatine Kinase CK-MB (CK-2) CK-MB (CK-2) Rel Index Total Protein Albumin Urine WBC (Auto) Vancomycin Trough Salicylates Acetaminophen Plasma/Serum Alcohol Crossmatch 02/25/20 02/26/20 02/26/20 23:40 05:46 11:32 WBC RBC Hgb Hct MCH RDW Plt Count Lymph % (Auto) [place] % (Auto) [place] # Baso # Seg Neutrophils % Seg Neuts % (Manual) Lymphocytes % (Manual) Monocytes % (Manual) Seg Neutrophils # Seg Neutrophils # Man Lymphocytes # (Manual) Monocytes # (Manual) Eosinophils # (Manual) Basophils # (Manual) PT INR APTT ABG pH ABG pO2 ABG HCO3 ABG O2 Saturation ABG Base Excess ABG Hemoglobin Oxyhemoglobin Sodium Potassium Chloride Carbon Dioxide BUN Creatinine Glucose POC Glucose 114 H 113 H 106 H Lactic Acid Calcium Ionized Calcium Phosphorus Magnesium Total Bilirubin AST ALT Alkaline Phosphatase Ammonia Total Creatine Kinase CK-MB (CK-2) CK-MB (CK-2) Rel Index Total Protein Albumin Urine WBC (Auto) Vancomycin Trough Salicylates Acetaminophen Plasma/Serum Alcohol Crossmatch 02/26/20 02/27/20 02/27/20 16:14 11:53 17:54 WBC RBC Hgb Hct MCH RDW Plt Count Lymph % (Auto) [place] % (Auto) [place] # Baso # Seg Neutrophils % Seg Neuts % (Manual) Lymphocytes % (Manual) Monocytes % (Manual) Seg Neutrophils # Seg Neutrophils # Man Lymphocytes # (Manual) Monocytes # (Manual) Eosinophils # (Manual) Basophils # (Manual) PT INR APTT ABG pH ABG pO2 ABG HCO3 ABG O2 Saturation ABG Base Excess ABG Hemoglobin Oxyhemoglobin Sodium Potassium Chloride Carbon Dioxide BUN Creatinine Glucose POC Glucose 123 H 134 H 119 H Lactic Acid Calcium Ionized Calcium Phosphorus Magnesium Total Bilirubin AST ALT Alkaline Phosphatase Ammonia Total Creatine Kinase CK-MB (CK-2) CK-MB (CK-2) Rel Index Total Protein Albumin Urine WBC (Auto) Vancomycin Trough Salicylates Acetaminophen Plasma/Serum Alcohol Crossmatch 02/27/20 02/28/20 02/28/20 23:51 03:40 03:40 WBC RBC 3.58 L Hgb Hct MCH RDW Plt Count 575 H Lymph % (Auto) [place] % (Auto) 9.4 H [place] # 1.0 H Baso # Seg Neutrophils % Seg Neuts % (Manual) Lymphocytes % (Manual) Monocytes % (Manual) Seg Neutrophils # Seg Neutrophils # Man Lymphocytes # (Manual) Monocytes # (Manual) Eosinophils # (Manual) Basophils # (Manual) PT INR APTT ABG pH ABG pO2 ABG HCO3 ABG O2 Saturation ABG Base Excess ABG Hemoglobin Oxyhemoglobin Sodium Potassium Chloride Carbon Dioxide BUN 23 H Creatinine 0.5 L Glucose 114 H POC Glucose 138 H Lactic Acid Calcium Ionized Calcium Phosphorus Magnesium Total Bilirubin AST ALT Alkaline Phosphatase Ammonia Total Creatine Kinase CK-MB (CK-2) CK-MB (CK-2) Rel Index Total Protein Albumin Urine WBC (Auto) Vancomycin Trough Salicylates Acetaminophen Plasma/Serum Alcohol Crossmatch 02/28/20 02/28/20 02/29/20 12:37 18:38 05:50 WBC RBC Hgb Hct MCH RDW Plt Count Lymph % (Auto) [place] % (Auto) [place] # Baso # Seg Neutrophils % Seg Neuts % (Manual) Lymphocytes % (Manual) Monocytes % (Manual) Seg Neutrophils # Seg Neutrophils # Man Lymphocytes # (Manual) Monocytes # (Manual) Eosinophils # (Manual) Basophils # (Manual) PT INR APTT ABG pH ABG pO2 ABG HCO3 ABG O2 Saturation ABG Base Excess ABG Hemoglobin Oxyhemoglobin Sodium Potassium Chloride Carbon Dioxide BUN Creatinine Glucose POC Glucose 115 H 120 H 114 H Lactic Acid Calcium Ionized Calcium Phosphorus Magnesium Total Bilirubin AST ALT Alkaline Phosphatase Ammonia Total Creatine Kinase CK-MB (CK-2) CK-MB (CK-2) Rel Index Total Protein Albumin Urine WBC (Auto) Vancomycin Trough Salicylates Acetaminophen Plasma/Serum Alcohol Crossmatch 02/29/20 02/29/20 03/01/20 18:53 23:10 06:53 WBC RBC Hgb Hct MCH RDW Plt Count Lymph % (Auto) [place] % (Auto) [place] # Baso # Seg Neutrophils % Seg Neuts % (Manual) Lymphocytes % (Manual) Monocytes % (Manual) Seg Neutrophils # Seg Neutrophils # Man Lymphocytes # (Manual) Monocytes # (Manual) Eosinophils # (Manual) Basophils # (Manual) PT INR APTT ABG pH ABG pO2 ABG HCO3 ABG O2 Saturation ABG Base Excess ABG Hemoglobin Oxyhemoglobin Sodium Potassium Chloride Carbon Dioxide BUN Creatinine Glucose POC Glucose 112 H 147 H 131 H Lactic Acid Calcium Ionized Calcium Phosphorus Magnesium Total Bilirubin AST ALT Alkaline Phosphatase Ammonia Total Creatine Kinase CK-MB (CK-2) CK-MB (CK-2) Rel Index Total Protein Albumin Urine WBC (Auto) Vancomycin Trough Salicylates Acetaminophen Plasma/Serum Alcohol Crossmatch 03/01/20 03/01/20 03/02/20 17:31 18:35 00:10 WBC RBC Hgb Hct MCH RDW Plt Count Lymph % (Auto) [place] % (Auto) [place] # Baso # Seg Neutrophils % Seg Neuts % (Manual) Lymphocytes % (Manual) Monocytes % (Manual) Seg Neutrophils # Seg Neutrophils # Man Lymphocytes # (Manual) Monocytes # (Manual) Eosinophils # (Manual) Basophils # (Manual) PT INR APTT ABG pH ABG pO2 ABG HCO3 ABG O2 Saturation ABG Base Excess ABG Hemoglobin Oxyhemoglobin Sodium Potassium Chloride Carbon Dioxide BUN Creatinine Glucose POC Glucose 61 L 129 H 117 H Lactic Acid Calcium Ionized Calcium Phosphorus Magnesium Total Bilirubin AST ALT Alkaline Phosphatase Ammonia Total Creatine Kinase CK-MB (CK-2) CK-MB (CK-2) Rel Index Total Protein Albumin Urine WBC (Auto) Vancomycin Trough Salicylates Acetaminophen Plasma/Serum Alcohol Crossmatch 03/02/20 03/02/20 03/02/20 06:56 12:02 18:42 WBC RBC Hgb Hct MCH RDW Plt Count Lymph % (Auto) [place] % (Auto) [place] # Baso # Seg Neutrophils % Seg Neuts % (Manual) Lymphocytes % (Manual) Monocytes % (Manual) Seg Neutrophils # Seg Neutrophils # Man Lymphocytes # (Manual) Monocytes # (Manual) Eosinophils # (Manual) Basophils # (Manual) PT INR APTT ABG pH ABG pO2 ABG HCO3 ABG O2 Saturation ABG Base Excess ABG Hemoglobin Oxyhemoglobin Sodium Potassium Chloride Carbon Dioxide BUN Creatinine Glucose POC Glucose 125 H 111 H 126 H Lactic Acid Calcium Ionized Calcium Phosphorus Magnesium Total Bilirubin AST ALT Alkaline Phosphatase Ammonia Total Creatine Kinase CK-MB (CK-2) CK-MB (CK-2) Rel Index Total Protein Albumin Urine WBC (Auto) Vancomycin Trough Salicylates Acetaminophen Plasma/Serum Alcohol Crossmatch 03/03/20 03/03/20 03/03/20 00:18 06:11 11:50 WBC RBC Hgb Hct MCH RDW Plt Count Lymph % (Auto) [place] % (Auto) [place] # Baso # Seg Neutrophils % Seg Neuts % (Manual) Lymphocytes % (Manual) Monocytes % (Manual) Seg Neutrophils # Seg Neutrophils # Man Lymphocytes # (Manual) Monocytes # (Manual) Eosinophils # (Manual) Basophils # (Manual) PT INR APTT ABG pH ABG pO2 ABG HCO3 ABG O2 Saturation ABG Base Excess ABG Hemoglobin Oxyhemoglobin Sodium Potassium Chloride Carbon Dioxide BUN Creatinine Glucose POC Glucose 139 H 155 H 118 H Lactic Acid Calcium Ionized Calcium Phosphorus Magnesium Total Bilirubin AST ALT Alkaline Phosphatase Ammonia Total Creatine Kinase CK-MB (CK-2) CK-MB (CK-2) Rel Index Total Protein Albumin Urine WBC (Auto) Vancomycin Trough Salicylates Acetaminophen Plasma/Serum Alcohol Crossmatch 03/03/20 03/03/20 03/04/20 18:09 23:46 05:37 WBC RBC Hgb Hct MCH RDW Plt Count Lymph % (Auto) [place] % (Auto) [place] # Baso # Seg Neutrophils % Seg Neuts % (Manual) Lymphocytes % (Manual) Monocytes % (Manual) Seg Neutrophils # Seg Neutrophils # Man Lymphocytes # (Manual) Monocytes # (Manual) Eosinophils # (Manual) Basophils # (Manual) PT INR APTT ABG pH ABG pO2 ABG HCO3 ABG O2 Saturation ABG Base Excess ABG Hemoglobin Oxyhemoglobin Sodium Potassium Chloride Carbon Dioxide BUN Creatinine Glucose POC Glucose 109 H 132 H 111 H Lactic Acid Calcium Ionized Calcium Phosphorus Magnesium Total Bilirubin AST ALT Alkaline Phosphatase Ammonia Total Creatine Kinase CK-MB (CK-2) CK-MB (CK-2) Rel Index Total Protein Albumin Urine WBC (Auto) Vancomycin Trough Salicylates Acetaminophen Plasma/Serum Alcohol Crossmatch 03/04/20 03/04/20 03/05/20 11:38 17:54 00:14 WBC RBC Hgb Hct MCH RDW Plt Count Lymph % (Auto) [place] % (Auto) [place] # Baso # Seg Neutrophils % Seg Neuts % (Manual) Lymphocytes % (Manual) Monocytes % (Manual) Seg Neutrophils # Seg Neutrophils # Man Lymphocytes # (Manual) Monocytes # (Manual) Eosinophils # (Manual) Basophils # (Manual) PT INR APTT ABG pH ABG pO2 ABG HCO3 ABG O2 Saturation ABG Base Excess ABG Hemoglobin Oxyhemoglobin Sodium Potassium Chloride Carbon Dioxide BUN Creatinine Glucose POC Glucose 138 H 118 H 134 H Lactic Acid Calcium Ionized Calcium Phosphorus Magnesium Total Bilirubin AST ALT Alkaline Phosphatase Ammonia Total Creatine Kinase CK-MB (CK-2) CK-MB (CK-2) Rel Index Total Protein Albumin Urine WBC (Auto) Vancomycin Trough Salicylates Acetaminophen Plasma/Serum Alcohol Crossmatch 03/06/20 03/06/20 03/06/20 03:37 03:37 06:29 WBC RBC Hgb Hct MCH RDW Plt Count 550 H Lymph % (Auto) [place] % (Auto) 9.1 H [place] # Baso # Seg Neutrophils % Seg Neuts % (Manual) Lymphocytes % (Manual) Monocytes % (Manual) Seg Neutrophils # Seg Neutrophils # Man Lymphocytes # (Manual) Monocytes # (Manual) Eosinophils # (Manual) Basophils # (Manual) PT INR APTT ABG pH ABG pO2 ABG HCO3 ABG O2 Saturation ABG Base Excess ABG Hemoglobin Oxyhemoglobin Sodium Potassium Chloride Carbon Dioxide BUN 26 H Creatinine 0.5 L Glucose POC Glucose 128 H Lactic Acid Calcium 10.4 H Ionized Calcium Phosphorus Magnesium Total Bilirubin AST ALT Alkaline Phosphatase Ammonia Total Creatine Kinase CK-MB (CK-2) CK-MB (CK-2) Rel Index Total Protein Albumin Urine WBC (Auto) Vancomycin Trough Salicylates Acetaminophen Plasma/Serum Alcohol Crossmatch 03/06/20 03/07/20 03/07/20 17:47 06:37 12:37 WBC RBC Hgb Hct MCH RDW Plt Count Lymph % (Auto) [place] % (Auto) [place] # Baso # Seg Neutrophils % Seg Neuts % (Manual) Lymphocytes % (Manual) Monocytes % (Manual) Seg Neutrophils # Seg Neutrophils # Man Lymphocytes # (Manual) Monocytes # (Manual) Eosinophils # (Manual) Basophils # (Manual) PT INR APTT ABG pH ABG pO2 ABG HCO3 ABG O2 Saturation ABG Base Excess ABG Hemoglobin Oxyhemoglobin Sodium Potassium Chloride Carbon Dioxide BUN Creatinine Glucose POC Glucose 120 H 113 H 118 H Lactic Acid Calcium Ionized Calcium Phosphorus Magnesium Total Bilirubin AST ALT Alkaline Phosphatase Ammonia Total Creatine Kinase CK-MB (CK-2) CK-MB (CK-2) Rel Index Total Protein Albumin Urine WBC (Auto) Vancomycin Trough Salicylates Acetaminophen Plasma/Serum Alcohol Crossmatch 03/07/20 03/08/20 16:41 00:55 WBC RBC Hgb Hct MCH RDW Plt Count Lymph % (Auto) [place] % (Auto) [place] # Baso # Seg Neutrophils % Seg Neuts % (Manual) Lymphocytes % (Manual) Monocytes % (Manual) Seg Neutrophils # Seg Neutrophils # Man Lymphocytes # (Manual) Monocytes # (Manual) Eosinophils # (Manual) Basophils # (Manual) PT INR APTT ABG pH ABG pO2 ABG HCO3 ABG O2 Saturation ABG Base Excess ABG Hemoglobin Oxyhemoglobin Sodium Potassium Chloride Carbon Dioxide BUN Creatinine Glucose POC Glucose 108 H 139 H Lactic Acid Calcium Ionized Calcium Phosphorus Magnesium Total Bilirubin AST ALT Alkaline Phosphatase Ammonia Total Creatine Kinase CK-MB (CK-2) CK-MB (CK-2) Rel Index Total Protein Albumin Urine WBC (Auto) Vancomycin Trough Salicylates Acetaminophen Plasma/Serum Alcohol Crossmatch Allied health notes reviewed: RT
[2020-03-08] MEDS: LANSOPRAZOLE 30 MG SOLUTAB FEEDTUBE SCH (10:40)
[2020-03-08] MEDS: MIRTAZAPINE 30 MG TAB PO SCH (10:40)
[2020-03-08] MEDS: QUEtiapine 100 MG TAB FEEDTUBE SCH ×2 (10:40→21:55)
[2020-03-08] MEDS: METOPROLOL TARTRATE 25 MG TAB PO SCH ×2 (10:40→21:51)
[2020-03-08] MEDS: SERTRALINE 50 MG TAB PO SCH (10:40)
[2020-03-08] MEDS: GLYCOPYRROLATE 1 MG TAB PO SCH ×3 (10:41→21:52)
[2020-03-08] MEDS: levETIRAcetam 500 MG/5 ML ORAL LIQD PO SCH ×2 (10:41→21:53)
[2020-03-08] MEDS: hydrOXYzine PAMOATE 25 MG CAP PO SCH ×2 (10:41→21:51)
[2020-03-08] MEDS: NICOTINE 21 MG/24 HR PATCH TD SCH (10:41)
[2020-03-08] MEDS: DOCUSATE SODIUM 100 MG/10 ML ORAL LIQD FEEDTUBE SCH ×2 (10:41→21:51)
[2020-03-08 13:39] LABS: ABG Base Excess 1.8 mmol/L (-2.0-3.0); ABG HCO3 26.2 mmol/L (20.0-26.0); ABG Methemoglobin 0.5 % (0.0-1.5); ABG PCO2 40.2 mm Hg; ABG PH 7.433 pH Units (7.350-7.450); ABG PO2 71.1 mm Hg (80.0-90.0)
[2020-03-08] MEDS: ENOXAPARIN 40 MG/0.4 ML INJ SUB-Q SCH (21:52)
[2020-03-09] MEDS: ACETYLCYSTEINE 20% 200 MG/1 ML *FOR INHALATION USE INHALATION SCH ×2 (01:13→08:45)
[2020-03-09] MEDS: LEVALBUTEROL 0.63 MG/3 ML NEBU IH SCH ×3 (01:13→15:23)
--- NOTE | 2020-03-09 11:08 | Progress Note ---
Assessment and Plan Assessment and plan: 54-year-old female with a past medical history of Hypertension, Depression, Tobacco use Disorder, Alcohol use Disorder as confirmed by Daughter and pt's mother presents to the hospital status post cardiac arrest at home. EMS found pt in [facility]. They were unable to intubate patient with a ET tube because she was clenching down therefore Joe airway placed. Per the ED physician who evaluated pt, Patient presented with a pulse, intermittent respirations, and bagging support via Joe airway with O2 sat of 100%. Accu-Chek of 71 obtained by EMS. She was intubated in the ER and called for admission. Following admission patient was diagnosed with anoxic brain injury, sepsis with MRSA bacteremia and MSSA pneumonia, alcoholic liver disease. Family member initially wished for full code then changed to DNR, patient treated with IV antibiotics for sepsis, status post trach and PEG on 12/13/19. Weaned off from the vent and put on T- piece. Patient is uninsured, waiting for placement, guarded prognosis. 03/07: Returning to service no acute changes are noted. Continue current management while awaiting placement. Intermittent labs. Base of neck also around tracheostomy tube preventing downgrading. Continue appropriate wound care. 03/08: Plan of care unchanged continues on aerosol trach collar 28% of oxygen. Continue wound care management placement still pending status decision. 03/09: Continue current treatment plan. Continue aspiration precaution / Anoxic brain injury: suspected CT head: No acute abnormality. EEG ordered showed Generalized slowing. No seizures or epileptiform activity. -Patient now opening her eyes, can speak and able to follow command - as needed haldol for agitation /Acute Respiratory failure - due to MSSA PNA -s/p intubation, s/p trach and PEG on 12/12 with mechanical ventilation, now on T-piece - CTA was done and negative for PE, - Echo quality is poor, showed diastolic dysfunction - continue weaning as tolerated -Continue appropriate and adequate tracheostomy care /Tracheostomy site ulceration -Continue appropriate wound management try to keep area dry. /Anemia, microcytic - Status post 3 units PRBC transfusion, H&H low stable /Acute metabolic encephalopathy/toxic encephalopathy due to the above - cont supportive care /Hyperammonemia - likely from liver disease related to EtOH abuse - Patient had elevated ammonia level and treated with lactulose /Metabolic Acidosis -Alcohol ketoacidosis vs hypoprofusion -Continue to monitor /ELevated LFTs, stable now - due to ischemic hepatitis. /Leucocytosis with sepsis - Source MRSA bacteremia and MSSA pneumonia. UA showed pyuria. RUQ US showed no ascites. - Repeat TTE negative for vegetation. Completed 7 days of Ceftriaxone on 11/29/2019. -Treated with Abx vancomycin 1 gm IV q 12 hour total 2 week till 12/30/2019 /MSSA pneumonia: Status post vancomycin till 12/30/2019 /ALcohol USe Disorder - given ongoing Alcohol use almost daily, s/p IV Thiamine - monitor /Severe hypokalemia -Repleted /Seizure disorder: treat with Keppra /H. Influenzae, tracheobronchitis, treated with abx /Moderate to severe fecal impaction - will add stool softner DNR CODE STATUS Disposition: prognosis guarded. Family okay for DNR, PT recommended subacute rehab, discharge pending on placement. negative for COVID 19 History Interval history: Patient seen and examined no clinical change at this time continues on ATC at 28% off oxygen. Admits agitated this morning Hospitalist Physical - Physical exam Narrative exam: General appearance: Present: Appears older than stated age tries to talk. Intermittent agitation - EENT Eyes: no scleral icterus, no conjunctival injection, pupil not reactive ENT: clear oral mucosa, dentition normal, no oropharyngeal erythema Ears: bilateral: normal - Neck Neck: trach on place with mild ulceration at the base. - Respiratory Respiratory effort: other (on T-piece) Respiratory: bilateral: rales - Cardiovascular Rhythm: regular Heart Sounds: Present: S1 & S2. Absent: gallop, rub Extremities: pulses intact, No edema, normal color - Gastrointestinal General gastrointestinal: Present: soft, non-tender, non-distended, normal bowel sounds - Integumentary Integumentary: clear, warm, dry - Musculoskeletal Musculoskeletal: No joint swelling or tenderness - Neurologic Neurologic: other (2+ reflexes throughout). respond to commend and nods head. generalized weakness, verbal - Psychiatric Psychiatric: co-operative - Constitutional Vitals: Temp Pulse Resp BP Pulse Ox 97.6 F 102 H 20 121/89 97 03/09/20 07:45 03/09/20 07:45 03/09/20 07:45 03/09/20 07:45 03/09/20 07:45 General appearance: Present: mild distress, cachectic, disheveled, other (Noncommunicative) HEART Score - HEART Score Troponin: Troponin T < 0.010 ng/mL (0.00-0.029) 11/22/19 23:27 Results - Labs CBC & Chem 7: 03/06/20 03:37 03/06/20 03:37 Labs: Laboratory Last Values WBC 8.1 K/mm3 (4.5-11.0) 03/06/20 03:37 RBC 3.79 M/mm3 (3.65-5.03) 03/06/20 03:37 Hgb 11.2 gm/dl (10.1-14.3) 03/06/20 03:37 Hct 33.3 % (30.3-42.9) 03/06/20 03:37 MCV 88 fl (79-97) 03/06/20 03:37 MCH 30 pg (28-32) 03/06/20 03:37 MCHC 34 % (30-34) 03/06/20 03:37 RDW 14.6 % (13.2-15.2) 03/06/20 03:37 Plt Count 550 K/mm3 (140-440) H 03/06/20 03:37 Lymph % (Auto) 27.8 % (13.4-35.0) 03/06/20 03:37 [place] % (Auto) 9.1 % (0.0-7.3) H 03/06/20 03:37 Eos % (Auto) 2.8 % (0.0-4.3) 03/06/20 03:37 Baso % (Auto) 0.7 % (0.0-1.8) 03/06/20 03:37 Lymph # 2.2 K/mm3 (1.2-5.4) 03/06/20 03:37 [place] # 0.7 K/mm3 (0.0-0.8) 03/06/20 03:37 Eos # 0.2 K/mm3 (0.0-0.4) 03/06/20 03:37 Baso # 0.1 K/mm3 (0.0-0.1) 03/06/20 03:37 Add Manual Diff Complete 12/25/19 03:47 Total Counted 200 12/25/19 03:47 Seg Neutrophils % 59.6 % (40.0-70.0) 03/06/20 03:37 Seg Neuts % (Manual) 97.5 % (40.0-70.0) H 12/25/19 03:47 Band Neutrophils % 0 % 12/25/19 03:47 Lymphocytes % (Manual) 1.0 % (13.4-35.0) L 12/25/19 03:47 Reactive Lymphs % (Man) 0 % 12/25/19 03:47 Monocytes % (Manual) 1.5 % (0.0-7.3) 12/25/19 03:47 Eosinophils % (Manual) 0 % (0.0-4.3) 12/25/19 03:47 Basophils % (Manual) 0 % (0.0-1.8) 12/25/19 03:47 Metamyelocytes % 0 % 12/25/19 03:47 Myelocytes % 0 % 12/25/19 03:47 Promyelocytes % 0 % 12/25/19 03:47 Blast Cells % 0 % 12/25/19 03:47 Nucleated RBC % Not Reportable 12/25/19 03:47 Seg Neutrophils # 4.8 K/mm3 (1.8-7.7) 03/06/20 03:37 Seg Neutrophils # Man 35.3 K/mm3 (1.8-7.7) H 12/25/19 03:47 Band Neutrophils # 0.0 K/mm3 12/25/19 03:47 Lymphocytes # (Manual) 0.4 K/mm3 (1.2-5.4) L 12/25/19 03:47 Abs React Lymphs (Man) 0.0 K/mm3 12/25/19 03:47 Monocytes # (Manual) 0.5 K/mm3 (0.0-0.8) 12/25/19 03:47 Eosinophils # (Manual) 0.0 K/mm3 (0.0-0.4) 12/25/19 03:47 Basophils # (Manual) 0.0 K/mm3 (0.0-0.1) 12/25/19 03:47 Metamyelocytes # 0.0 K/mm3 12/25/19 03:47 Myelocytes # 0.0 K/mm3 12/25/19 03:47 Promyelocytes # 0.0 K/mm3 12/25/19 03:47 Blast Cells # 0.0 K/mm3 12/25/19 03:47 Pathologist Review 12/13/19 07:48 WBC Morphology Not Reportable 12/25/19 03:47 Hypersegmented Neuts Not Reportable 12/25/19 03:47 Hyposegmented Neuts Not Reportable 12/25/19 03:47 Hypogranular Neuts Not Reportable 12/25/19 03:47 Smudge Cells Not Reportable 12/25/19 03:47 Toxic Granulation Not Reportable 12/25/19 03:47 Toxic Vacuolation Not Reportable 12/25/19 03:47 Dohle Bodies Not Reportable 12/25/19 03:47 Pelger-Huet Anomaly Not Reportable 12/25/19 03:47 Dominique Rods Not Reportable 12/25/19 03:47 Platelet Estimate Consistent w auto 12/25/19 03:47 Clumped Platelets Not Reportable 12/25/19 03:47 Plt Clumps, EDTA Not Reportable 12/25/19 03:47 Large Platelets Not Reportable 12/25/19 03:47 Giant Platelets Not Reportable 12/25/19 03:47 Platelet Satelliting Not Reportable 12/25/19 03:47 Plt Morphology Comment Not Reportable 12/25/19 03:47 RBC Morphology Not Reportable 12/25/19 03:47 Dimorphic RBCs Not Reportable 12/25/19 03:47 Polychromasia Not Reportable 12/25/19 03:47 Hypochromasia Not Reportable 12/25/19 03:47 Poikilocytosis Not Reportable 12/25/19 03:47 Anisocytosis 1+ 12/25/19 03:47 Microcytosis Not Reportable 12/25/19 03:47 Macrocytosis Not Reportable 12/25/19 03:47 Spherocytes Not Reportable 12/25/19 03:47 Pappenheimer Bodies Not Reportable 12/25/19 03:47 Sickle Cells Not Reportable 12/25/19 03:47 Target Cells Not Reportable 12/25/19 03:47 Tear Drop Cells Not Reportable 12/25/19 03:47 Ovalocytes Not Reportable 12/25/19 03:47 Helmet Cells Not Reportable 12/25/19 03:47 Frias-Henriette Bodies Not Reportable 12/25/19 03:47 Ossian Rings Not Reportable 12/25/19 03:47 Jamshid Cells Not Reportable 12/25/19 03:47 Bite Cells Not Reportable 12/25/19 03:47 Crenated Cell Not Reportable 12/25/19 03:47 Elliptocytes Not Reportable 12/25/19 03:47 Acanthocytes (Spur) Not Reportable 12/25/19 03:47 Rouleaux Not Reportable 12/25/19 03:47 Hemoglobin C Crystals Not Reportable 12/25/19 03:47 Schistocytes Not Reportable 12/25/19 03:47 Malaria parasites Not Reportable 12/25/19 03:47 Gregg Bodies Not Reportable 12/25/19 03:47 Hem Pathologist Commnt No 12/25/19 03:47 PT 17.0 Sec. (12.2-14.9) H 11/23/19 03:47 INR 1.36 (0.87-1.13) H 11/23/19 03:47 APTT 128.2 Sec. (24.2-36.6) H* 11/23/19 03:47 Heparin Anti-Xa Level 0.31 U.I./ml (0.3-0.7) 11/23/19 09:03 ABG pH 7.433 pH Units (7.350-7.450) 03/08/20 13:25 ABG pCO2 40.2 mm Hg 03/08/20 13:25 ABG pO2 71.1 mm Hg (80.0-90.0) L 03/08/20 13:25 ABG HCO3 26.2 mmol/L (20.0-26.0) H 03/08/20 13:25 ABG O2 Saturation 97.0 % (95.0-99.0) 03/08/20 13:25 ABG O2 Content 11.0 (0.0-44) 03/08/20 13:25 ABG Base Excess 1.8 mmol/L (-2.0-3.0) 03/08/20 13:25 ABG Hemoglobin 8.2 gm/dl (12.0-16.0) L 03/08/20 13:25 ABG Carboxyhemoglobin 1.7 % (0.0-5.0) 03/08/20 13:25 ABG Methemoglobin 0.5 % (0.0-1.5) 03/08/20 13:25 Oxyhemoglobin 94.8 % (95.0-99.0) L 03/08/20 13:25 FiO2 21 % 03/08/20 13:25 Sodium 137 mmol/L (137-145) 03/06/20 03:37 Potassium 3.8 mmol/L (3.6-5.0) 03/06/20 03:37 Chloride 99.2 mmol/L (98-107) 03/06/20 03:37 Carbon Dioxide 24 mmol/L (22-30) 03/06/20 03:37 Anion Gap 18 mmol/L 03/06/20 03:37 BUN 26 mg/dL (7-17) H 03/06/20 03:37 Creatinine 0.5 mg/dL (0.7-1.2) L 03/06/20 03:37 Estimated GFR > 60 ml/min 03/06/20 03:37 BUN/Creatinine Ratio 52 % 03/06/20 03:37 Glucose 98 mg/dL (65-100) 03/06/20 03:37 POC Glucose 139 (70-105) H 03/09/20 06:28 Lactic Acid 1.80 mmol/L (0.7-2.0) 11/25/19 05:05 Calcium 10.4 mg/dL (8.4-10.2) H 03/06/20 03:37 Ionized Calcium 4.5 mg/dL (4.8-5.6) L 11/23/19 06:32 Phosphorus 4.20 mg/dL (2.5-4.5) D 11/28/19 08:59 Magnesium 1.90 mg/dL (1.7-2.3) 02/28/20 03:40 Total Bilirubin 0.40 mg/dL (0.1-1.2) 12/13/19 07:48 AST 27 units/L (5-40) 12/13/19 07:48 ALT 26 units/L (7-56) 12/13/19 07:48 Alkaline Phosphatase 316 units/L (35-129) H 12/13/19 07:48 Ammonia 42.0 umol/L (25-60) 11/29/19 13:41 Total Creatine Kinase 139 units/L (30-135) H 11/22/19 23:27 CK-MB (CK-2) 8.3 ng/mL (0.0-4.0) H 11/22/19 23:27 CK-MB (CK-2) Rel Index 5.9 (0-4) H 11/22/19 23:27 Troponin T < 0.010 ng/mL (0.00-0.029) 11/22/19 23:27 Total Protein 6.8 g/dL (6.3-8.2) 12/13/19 07:48 Albumin 2.4 g/dL (3.9-5) L 12/13/19 07:48 Albumin/Globulin Ratio 0.5 % 12/13/19 07:48 Lipase 18 units/L (13-60) 11/23/19 00:34 Procalcitonin 1.09 ng/mL (<0.15) 11/23/19 04:53 TSH 1.010 mlU/mL (0.270-4.200) 02/12/20 07:36 Free T4 1.08 ng/dL (0.76-1.46) 02/12/20 07:36 Urine Color Yellow (Yellow) 12/16/19 Unknown Urine Turbidity Slightly-cloudy (Clear) 12/16/19 Unknown Urine pH 5.0 (5.0-7.0) 12/16/19 Unknown Ur Specific [place] 1.018 (1.003-1.030) 12/16/19 Unknown Urine Protein 30 mg/dl mg/dL (Negative) 12/16/19 Unknown Urine Glucose (UA) Neg mg/dL (Negative) 12/16/19 Unknown Urine Ketones Neg mg/dL (Negative) 12/16/19 Unknown Urine Blood Sm (Negative) 12/16/19 Unknown Urine Nitrite Neg (Negative) 12/16/19 Unknown Urine Bilirubin Neg (Negative) 12/16/19 Unknown Urine Urobilinogen < 2.0 mg/dL (<2.0) 12/16/19 Unknown Ur Leukocyte Esterase Neg (Negative) 12/16/19 Unknown Urine WBC (Auto) 6.0 /HPF (0.0-6.0) 12/16/19 Unknown Urine RBC (Auto) 9.0 /HPF (0.0-6.0) 12/16/19 Unknown U Epithel Cells (Auto) < 1.0 /HPF (0-13.0) 12/16/19 Unknown Urine Bacteria (Auto) 2+ /HPF (Negative) 11/22/19 23:17 Hyaline Casts 3 /LPF 12/16/19 Unknown Granular Casts 3 /LPF 12/16/19 Unknown Urine Mucus Few /HPF 12/16/19 Unknown Vancomycin Trough 33.8 ug/mL (5.0-20.0) H 12/21/19 08:56 Random Vancomycin 16.2 ug/mL (0-40.0) 12/24/19 04:31 Salicylates < 0.3 mg/dL (2.8-20.0) L 11/22/19 23:27 Urine Opiates Screen Presumptive negative 11/22/19 23:17 Urine Methadone Screen Presumptive negative 11/22/19 23:17 Acetaminophen < 5.0 ug/mL (10.0-30.0) L 11/22/19 23:27 Ur Barbiturates Screen Presumptive negative 11/22/19 23:17 Ur Phencyclidine Scrn Presumptive negative 11/22/19 23:17 Ur Amphetamines Screen Presumptive negative 11/22/19 23:17 U Benzodiazepines Scrn Presumptive negative 11/22/19 23:17 Urine Cocaine Screen Presumptive negative 11/22/19 23:17 U Marijuana (THC) Screen Presumptive negative 11/22/19 23:17 Drugs of Abuse Note Disclamer 11/22/19 23:17 Plasma/Serum Alcohol 0.08 % (0-0.07) H 11/22/19 23:27 Coronavirus (PCR) Negative (Negative) 02/05/20 07:50 Hepatitis A IgM Ab Non-reactive (NonReactive) 11/23/19 01:19 Hep Bs Antigen Non-reactive (Negative) 11/23/19 01:19 Hep B Core IgM Ab Non-reactive (NonReactive) 11/23/19 01:19 Hepatitis C Antibody Non-reactive (NonReactive) 11/23/19 01:19 Blood Type O POSITIVE 12/21/19 14:54 Antibody Screen Negative 12/21/19 14:54 Crossmatch See Detail 12/21/19 14:54 - Diagnostic Impressions Diagnostic Impressions: Echocardiogram 11/23/19 03:58 Transthoracic Echocardiogram Indication: Cardiac arrest BP: 131/89 HR: 115 Conclusions *The study quality is technically difficult. *Global left ventricular wall motion and contractility are within normal limits. *The estimated ejection fraction is 55-60%. *Abnormal left ventricular diastolic filling is observed, consistent with impaired relaxation. *There is no pericardial effusion. Findings Procedure Info: The study quality is technically difficult. The study was technically limited due to the patient's inability to lay in the left lateral decubitus position. Left Ventricle: The left ventricular chamber size is normal. There is no left ventricular hypertrophy. Global left ventricular wall motion and contractility are within normal limits. Global left ventricular systolic function is normal. The estimated ejection fraction is 55-60%. Abnormal left ventricular diastolic filling is observed, consistent with impaired relaxation. Left Atrium: The left atrial chamber size is normal. Aortic Valve: The aortic valve leaflets are mildly thickened. Mitral Valve: The mitral valve leaflets are mildly thickened. There is no evidence of mitral regurgitation. Tricuspid Valve: The tricuspid valve leaflets are normal. There is trace tricuspid regurgitation. The right ventricular systolic pressure is calculated at 33 mmHg. Pulmonic Valve: The pulmonic valve appears normal. Pericardium: The pericardium appears normal. There is no pericardial effusion. Aorta: The aorta appears normal. Venous: The inferior vena cava appears normal in size. Measurements Chambers 2D Name Value Normal Range IVSd (2D) 0.94 cm (0.6 - 1.1) LVPWd (2D) 0.81 cm (0.6 - 1.1) LVIDd (2D) 3.6 cm (3.7 - 5.6) LVIDs (2D) 2.27 cm (2 - 3.8) LV FS (2D) 36.93 % - EF Teichholz (2D) 67.76 % - Ao root diameter (2D) 3.03 cm (2 - 3.7) Volumes/Mass Name Value Normal Range LA ESV SP 4CH (A/L) 16.89 ml - LA ESV SP 4CH (MOD) 15.52 ml - Diastolic/Systolic Function Name Value Normal Range MV E-wave Vmax 0.55 m/sec - MV deceleration time 200.89 msec - MV A-wave Vmax 0.68 m/sec - MV E:A ratio 0.82 ratio - Aortic Valve Name Value Normal Range AV Vmax 1.1 m/sec - AV VTI 15.9 cm - AV peak gradient 4.86 mmHg - AV mean gradient 2.59 mmHg - LVOT diameter 2 cm - LVOT Vmax 1.03 m/sec - LVOT VTI 15.87 cm - LVOT peak gradient 4.24 mmHg - LVOT mean gradient 2.41 mmHg - SV LVOT 49.77 ml - JOSÉ MIGUEL (continuity Vmax) 2.93 cm2 - JOSÉ MIGUEL (continuity VTI) 3.13 cm2 - Tricuspid Valve Name Value Normal Range TR Vmax 2.74 m/sec - TR peak gradient 303 mmHg - RAP 3 mmHg - RVSP 33 mmHg - IVC diameter 1.77 cm (1.2 - 2.3) Pulmonic Valve/Qp:Qs Name Value Normal Range PV Vmax 0.77 m/sec - PV peak gradient 2.4 mmHg - PV acceleration time 114.18 msec - Echocardiogram Limited Views 12/17/19 14:53 Transthoracic Echocardiogram Indication: R/O Vegetations BP: 144/83 HR: 133 Conclusions *Global left ventricular systolic function is mildly decreased. *The estimated ejection fraction is 45-50%. *A trivial pericardial effusion is visualized. Findings Left Ventricle: The left ventricular chamber size is normal. Global left ventricular systolic function is mildly decreased. The estimated ejection fraction is 45-50%. Left Atrium: The left atrial chamber size is normal. Right Ventricle: The right ventricular cavity size is normal. Right Atrium: The right atrial cavity size is normal. Aortic Valve: The aortic valve is not well visualized. There is no evidence of aortic regurgitation. Mitral Valve: The mitral valve leaflets are mildly thickened. There is trace of mitral regurgitation. Tricuspid Valve: The tricuspid valve leaflets are mildly thickened. There is trace tricuspid regurgitation. The right ventricular systolic pressure is calculated at 29 mmHg. Pulmonic Valve: The pulmonic valve is not well visualized. There is no evidence of pulmonic regurgitation. Pericardium: A trivial pericardial effusion is visualized. Aorta: There is no dilatation of the ascending aorta. There is no dilatation of the aortic root. Venous: The inferior vena cava appears normal in size. There is a greater than 50% respiratory change in the inferior vena cava dimension. Measurements Chambers 2D Name Value Normal Range IVSd (2D) 0.83 cm (0.6 - 1.1) LVPWd (2D) 0.98 cm (0.6 - 1.1) LVIDd (2D) 3.71 cm (3.7 - 5.6) LVIDs (2D) 2.93 cm (2 - 3.8) LV FS (2D) 21.12 % - EF Teichholz (2D) 43.71 % - Ao root diameter (2D) 3.02 cm (2 - 3.7) Volumes/Mass Name Value Normal Range LA ESV SP 4CH (A/L) 36.8 ml - LA ESV SP 2CH (A/L) 45.89 ml - LA ESV BP (A/L) 42.35 ml - LA ESV BP (A/L) index 26.63 ml/m2 - LA ESV SP 4CH (MOD) 34.42 ml - LA ESV SP 2CH (MOD) 44.21 ml - LA ESV BP (MOD) 39.82 ml - LA ESV BP (MOD) index 25.05 ml/m2 - Aortic Valve Name Value Normal Range LVOT diameter 1.63 cm - Tricuspid Valve Name Value Normal Range TR Vmax 2.56 m/sec - TR peak gradient 26 mmHg - RAP 3 mmHg - RVSP 29 mmHg - IVC diameter 1.83 cm (1.2 - 2.3) Dela Cruz/IV: Voiding Method Incontinent IV Catheter Type [Forearm] Peripheral IV IV Catheter Type [Left Forearm INT / Saline Lock ] IV Catheter Type [Right INT / Saline Lock Antecubital] IV Catheter Type [Right Hand] Peripheral IV IV Catheter Type [Right Wrist] Peripheral IV IV Catheter Type [Left Wrist] Peripheral IV IV Catheter Type [Left Peripheral IV Antecubital] IV Catheter Type [Right INT / Saline Lock Forearm] IV Catheter Type [Left Hand] INT / Saline Lock Active Medications - Current Medications Current Medications: Generic Name Dose Route Start Last Admin Trade Name Freq PRN Reason Stop Dose Admin Acetaminophen 650 mg 12/06/19 10:25 02/24/20 21:11 Tylenol FEEDTUBE 650 mg Q6H PRN Administration TEMP >/=100.3 Acetylcysteine 200 mg 02/16/20 20:00 03/09/20 08:45 Mucomyst Inhalation INHALATION 200 mg Q12HRT LUCHO Administration Alprazolam 1 mg 02/21/20 18:24 03/08/20 01:02 Xanax PO 1 mg Q8H PRN Administration Anxiety Lipase/Protease/Amylase 1 each 11/23/19 11:[address] 10,500 Unit FEEDTUBE PRN PRN Use w/ sod bicarb for FT Bisacodyl 10 mg 02/06/20 13:57 Dulcolax CA QDAY PRN Constipation unrelieved by MOM Docusate Sodium 100 mg 02/18/20 22:00 03/08/20 21:51 Colace FEEDTUBE 100 mg BID LUCHO Administration Enoxaparin Sodium 40 mg 03/07/20 22:00 03/08/20 21:52 Enoxaparin SUB-Q 40 mg QDAY@2200 LUCHO Administration Glycopyrrolate 2 mg 12/31/19 20:00 03/08/20 21:52 Robinul PO 2 mg TID LUCHO Administration Haloperidol Lactate 5 mg 03/05/20 09:22 03/07/20 17:13 Haldol IM 5 mg Q6H PRN Administration Agitation Hydralazine HCl 10 mg 11/24/19 00:45 03/03/20 05:57 Apresoline IV 10 mg Q6H PRN Administration SBP > 160 Hydroxyzine Pamoate 25 mg 12/06/19 10:00 03/08/20 21:51 Vistaril PO 25 mg BID LUCHO Administration Lansoprazole 30 mg 11/27/19 10:00 03/08/20 10:40 Prevacid Solutab FEEDTUBE 30 mg QDAY LUCHO Administration Levalbuterol HCl 0.63 mg 02/17/20 00:00 03/09/20 08:45 Xopenex IH 0.63 mg Q8HRT LUCHO Administration Levetiracetam 500 mg 11/29/19 10:00 03/08/20 21:53 Keppra PO 500 mg BID LUCHO Administration Metoprolol Tartrate 12.5 mg 02/23/20 22:00 03/08/20 21:51 Metoprolol PO 12.5 mg BID LUCHO Administration Mirtazapine 30 mg 12/06/19 10:00 03/08/20 10:40 Remeron PO 30 mg DAILY LUCHO Administration Nicotine 21 mg 02/16/20 13:00 03/08/20 10:41 Habitrol TD 21 mg QDAY LUCHO Administration Ondansetron HCl 4 mg 12/10/19 07:53 02/25/20 02:51 Zofran IV 4 mg Q4H PRN Administration Nausea And Vomiting Polyethylene Glycol 17 gm 02/06/20 13:57 Miralax 3350 PO QDAY PRN Constipation Quetiapine Fumarate 100 mg 03/06/20 10:00 03/08/20 21:55 Seroquel FEEDTUBE 100 mg BID LUCHO Administration Scopolamine 1 each 02/08/20 15:00 03/06/20 09:47 Transderm-Scop TD 1 each Q3D LUCHO Administration Sertraline HCl 25 mg 01/01/20 10:00 03/08/20 10:40 Zoloft PO 25 mg QDAY LUCHO Administration Simple Syrup 15 ml 11/23/19 11:50 Simple Syrup FEEDTUBE PRN PRN Hypoglycemia BG<70 Simple Syrup 30 ml 11/23/19 11:50 Simple Syrup FEEDTUBE PRN PRN Hypoglycemia Sodium Bicarbonate 325 mg 11/23/19 11:50 Sodium Bicarbonate FEEDTUBE PRN PRN For Clogged Feeding Tube Nutrition/Malnutrition Assess - Dietary Evaluation Nutrition/Malnutrition Findings: Nutrition Notes Start: 11/23/19 11:29 Freq: Status: Active Protocol: Document 03/07/20 12:40 LM (Rec: 03/07/20 12:48 LM [id number]) Nutrition Notes Initial or Follow up Reassessment Current Diagnosis Hypertension Other Pertinent Diagnosis Cardaic arrest, ETOH dependence, UTI Current Diet Jevity 1.2 at 60ml/hr Labs/Tests Reviewed Pertinent Medications Reviewed Height 5 ft 6 in Weight 46.7 kg [place] Body Weight (kg) 59.09 BMI 16.6 Subjective/Other Information Jevity running at goal and pt is tolerating. Percent of energy/protein needs met: 97%/100% Burn Absent Trauma Absent GI Symptoms None Current % PO Negligible Interpretation of Weight Loss (severe) >2% in 1 week Muscle Mass Mild Depletion (non-severe) #2 Nutrition Diagnosis Malnutrition Diagnosis Progress(for reassessment Improved documentation) #1 Nutrition Diagnosis Inadequate oral intake Diagnosis Progress(for reassessment Continues documentation) Is patient on ventilator? No Is Patient Ambulatory and/or Out of Bed No REE-([place]-St. Jeor-confined to bed) 1305.120 Kcal/Kg value to use for calculation 38 Approximate Energy Requirements Using 1775 kcal/Kg Calculation Used for Recommendations Kcal/kg Additional Notes Protein: 60-75g (1.2-1.5g/kg) Fluid: 1 ml/kcal Nutrition Intervention Change Diet Order: Continue TF Nutrition Support: Jevity 1.2 at 60ml/hr Flush 100ml q4h Kcal 1,728 Protein (gm) 80 Fluid (mL) 1,162 Goal #1 TF tolerance Goal #2 Meet at least 80% of energy and protein needs via TF Goal #3 Wt gain/maintenacne Anticipated Discharge Needs: TF Follow-Up By: 03/13/20 Additional Comments F/U for TF tolerance
[2020-03-09] MEDS: SERTRALINE 50 MG TAB PO SCH (12:10)
[2020-03-09] MEDS: levETIRAcetam 500 MG/5 ML ORAL LIQD PO SCH ×2 (12:10→21:21)
[2020-03-09] MEDS: METOPROLOL TARTRATE 25 MG TAB PO SCH ×2 (12:11→21:57)
[2020-03-09] MEDS: NICOTINE 21 MG/24 HR PATCH TD SCH (12:11)
[2020-03-09] MEDS: QUEtiapine 100 MG TAB FEEDTUBE SCH ×2 (12:12→21:22)
[2020-03-09] MEDS: DOCUSATE SODIUM 100 MG/10 ML ORAL LIQD FEEDTUBE SCH ×2 (12:13→21:21)
[2020-03-09] MEDS: MIRTAZAPINE 30 MG TAB PO SCH (12:16)
[2020-03-09] MEDS: hydrOXYzine PAMOATE 25 MG CAP PO SCH ×2 (12:16→21:22)
[2020-03-09] MEDS: GLYCOPYRROLATE 1 MG TAB PO SCH ×3 (12:17→21:21)
[2020-03-09] MEDS: SCOPOLAMINE TRANSDERMAL PATCH 72 HR TD SCH (12:20)
[2020-03-09] MEDS: LANSOPRAZOLE 30 MG SOLUTAB FEEDTUBE SCH (12:27)
[2020-03-09] MEDS ORDERED: AMOXICILLIN/K CLAV 875/125MG TAB ONE (15:00)
[2020-03-09] MEDS: AMOXICILLIN/K CLAV 875/125MG TAB PO SCH ×2 (15:00→21:21)
[2020-03-09] MEDS: dexAMETHasone 4 MG/ML VIAL IV SCH ×3 (16:00→23:40)
[2020-03-09] MEDS: ENOXAPARIN 40 MG/0.4 ML INJ SUB-Q SCH (21:21)
[2020-03-09] MEDS: ALPRAZolam 1 MG TAB PO PRN (21:22)
[2020-03-09] MEDS: ACETAMINOPHEN 325 MG/10.15 ML ORAL LIQD UNIT DOSE FEEDTUBE PRN (21:22)
[2020-03-10] MEDS: LEVALBUTEROL 0.63 MG/3 ML NEBU IH SCH ×4 (01:07→21:15)
[2020-03-10] MEDS: ACETYLCYSTEINE 20% 200 MG/1 ML *FOR INHALATION USE INHALATION SCH ×3 (01:07→21:16)
[2020-03-10] MEDS: dexAMETHasone 4 MG/ML VIAL IV SCH ×4 (05:21→23:07)
--- NOTE | 2020-03-10 09:03 | Progress Note ---
Assessment and Plan Assessment and plan: 54-year-old female with a past medical history of Hypertension, Depression, Tobacco use Disorder, Alcohol use Disorder as confirmed by Daughter and pt's mother presents to the hospital status post cardiac arrest at home. EMS found pt in [facility]. They were unable to intubate patient with a ET tube because she was clenching down therefore Joe airway placed. Per the ED physician who evaluated pt, Patient presented with a pulse, intermittent respirations, and bagging support via Joe airway with O2 sat of 100%. Accu-Chek of 71 obtained by EMS. She was intubated in the ER and called for admission. Following admission patient was diagnosed with anoxic brain injury, sepsis with MRSA bacteremia and MSSA pneumonia, alcoholic liver disease. Family member initially wished for full code then changed to DNR, patient treated with IV antibiotics for sepsis, status post trach and PEG on 12/13/19. Weaned off from the vent and put on T- piece. Patient is uninsured, waiting for placement, guarded prognosis. 03/07: Returning to service no acute changes are noted. Continue current management while awaiting placement. Intermittent labs. Base of neck also around tracheostomy tube preventing downgrading. Continue appropriate wound care. 03/08: Plan of care unchanged continues on aerosol trach collar 28% of oxygen. Continue wound care management placement still pending status decision. 03/09: Continue current treatment plan. Continue aspiration precaution 03/10: Continue current management, Restraints as patient still pulling, awaiting placement / Anoxic brain injury: suspected CT head: No acute abnormality. EEG ordered showed Generalized slowing. No seizures or epileptiform activity. -Patient now opening her eyes, can speak and able to follow command - as needed haldol for agitation /Acute Respiratory failure -due to MSSA PNA -s/p intubation, s/p trach and PEG on 12/12 with mechanical ventilation, now on T-piece - CTA was done and negative for PE, - Echo quality is poor, showed diastolic dysfunction - continue weaning as tolerated -Continue appropriate and adequate tracheostomy care /Tracheostomy site ulceration -Continue appropriate wound management try to keep area dry. /Anemia, microcytic - Status post 3 units PRBC transfusion, H&H low stable /Acute metabolic encephalopathy/toxic encephalopathy due to the above - cont supportive care /Hyperammonemia - likely from liver disease related to EtOH abuse - Patient had elevated ammonia level and treated with lactulose /Metabolic Acidosis -Alcohol ketoacidosis vs hypoprofusion -Continue to monitor /ELevated LFTs, stable now - due to ischemic hepatitis. /Leucocytosis with sepsis - Source MRSA bacteremia and MSSA pneumonia. UA showed pyuria. RUQ US showed no ascites. - Repeat TTE negative for vegetation. Completed 7 days of Ceftriaxone on 11/29/2019. -Treated with Abx vancomycin 1 gm IV q 12 hour total 2 week till 12/30/2019 /MSSA pneumonia: Status post vancomycin till 12/30/2019 /Alcohol use Disorder - given ongoing Alcohol use almost daily, s/p IV Thiamine - monitor /Severe hypokalemia -Repleted /Seizure disorder: treat with Keppra /H. Influenzae, tracheobronchitis, treated with abx /Moderate to severe fecal impaction - will add stool softner DNR CODE STATUS Disposition: prognosis guarded. Family okay for DNR, PT recommended subacute rehab, discharge pending on placement. negative for COVID 19 History Interval history: Patient seen and examined no clinical change at this time continues on ATC at 28% off oxygen. Admits agitated this morning Hospitalist Physical - Physical exam Narrative exam: General appearance: Present: Appears older than stated age tries to talk. Intermittent agitation - EENT Eyes: no scleral icterus, no conjunctival injection, pupil not reactive ENT: clear oral mucosa, dentition normal, no oropharyngeal erythema Ears: bilateral: normal - Neck Neck: trach on place with mild ulceration at the base. - Respiratory Respiratory effort: other (on T-piece) Respiratory: bilateral: rales - Cardiovascular Rhythm: regular Heart Sounds: Present: S1 & S2. Absent: gallop, rub Extremities: pulses intact, No edema, normal color - Gastrointestinal General gastrointestinal: Present: soft, non-tender, non-distended, normal bowel sounds - Integumentary Integumentary: clear, warm, dry - Musculoskeletal Musculoskeletal: No joint swelling or tenderness - Neurologic Neurologic: other (2+ reflexes throughout). respond to commend and nods head. generalized weakness, verbal - Psychiatric Psychiatric: co-operative - Constitutional Vitals: Temp Pulse Resp BP Pulse Ox 98.0 F 80 18 137/94 100 03/10/20 04:40 03/10/20 01:02 03/10/20 04:40 03/10/20 04:40 03/10/20 01:04 General appearance: Present: mild distress, cachectic, disheveled, other (Noncommunicative) HEART Score - HEART Score Troponin: Troponin T < 0.010 ng/mL (0.00-0.029) 11/22/19 23:27 Results - Labs CBC & Chem 7: 03/06/20 03:37 03/06/20 03:37 Labs: Laboratory Last Values WBC 8.1 K/mm3 (4.5-11.0) 03/06/20 03:37 RBC 3.79 M/mm3 (3.65-5.03) 03/06/20 03:37 Hgb 11.2 gm/dl (10.1-14.3) 03/06/20 03:37 Hct 33.3 % (30.3-42.9) 03/06/20 03:37 MCV 88 fl (79-97) 03/06/20 03:37 MCH 30 pg (28-32) 03/06/20 03:37 MCHC 34 % (30-34) 03/06/20 03:37 RDW 14.6 % (13.2-15.2) 03/06/20 03:37 Plt Count 550 K/mm3 (140-440) H 03/06/20 03:37 Lymph % (Auto) 27.8 % (13.4-35.0) 03/06/20 03:37 [place] % (Auto) 9.1 % (0.0-7.3) H 03/06/20 03:37 Eos % (Auto) 2.8 % (0.0-4.3) 03/06/20 03:37 Baso % (Auto) 0.7 % (0.0-1.8) 03/06/20 03:37 Lymph # 2.2 K/mm3 (1.2-5.4) 03/06/20 03:37 [place] # 0.7 K/mm3 (0.0-0.8) 03/06/20 03:37 Eos # 0.2 K/mm3 (0.0-0.4) 03/06/20 03:37 Baso # 0.1 K/mm3 (0.0-0.1) 03/06/20 03:37 Add Manual Diff Complete 12/25/19 03:47 Total Counted 200 12/25/19 03:47 Seg Neutrophils % 59.6 % (40.0-70.0) 03/06/20 03:37 Seg Neuts % (Manual) 97.5 % (40.0-70.0) H 12/25/19 03:47 Band Neutrophils % 0 % 12/25/19 03:47 Lymphocytes % (Manual) 1.0 % (13.4-35.0) L 12/25/19 03:47 Reactive Lymphs % (Man) 0 % 12/25/19 03:47 Monocytes % (Manual) 1.5 % (0.0-7.3) 12/25/19 03:47 Eosinophils % (Manual) 0 % (0.0-4.3) 12/25/19 03:47 Basophils % (Manual) 0 % (0.0-1.8) 12/25/19 03:47 Metamyelocytes % 0 % 12/25/19 03:47 Myelocytes % 0 % 12/25/19 03:47 Promyelocytes % 0 % 12/25/19 03:47 Blast Cells % 0 % 12/25/19 03:47 Nucleated RBC % Not Reportable 12/25/19 03:47 Seg Neutrophils # 4.8 K/mm3 (1.8-7.7) 03/06/20 03:37 Seg Neutrophils # Man 35.3 K/mm3 (1.8-7.7) H 12/25/19 03:47 Band Neutrophils # 0.0 K/mm3 12/25/19 03:47 Lymphocytes # (Manual) 0.4 K/mm3 (1.2-5.4) L 12/25/19 03:47 Abs React Lymphs (Man) 0.0 K/mm3 12/25/19 03:47 Monocytes # (Manual) 0.5 K/mm3 (0.0-0.8) 12/25/19 03:47 Eosinophils # (Manual) 0.0 K/mm3 (0.0-0.4) 12/25/19 03:47 Basophils # (Manual) 0.0 K/mm3 (0.0-0.1) 12/25/19 03:47 Metamyelocytes # 0.0 K/mm3 12/25/19 03:47 Myelocytes # 0.0 K/mm3 12/25/19 03:47 Promyelocytes # 0.0 K/mm3 12/25/19 03:47 Blast Cells # 0.0 K/mm3 12/25/19 03:47 Pathologist Review 12/13/19 07:48 WBC Morphology Not Reportable 12/25/19 03:47 Hypersegmented Neuts Not Reportable 12/25/19 03:47 Hyposegmented Neuts Not Reportable 12/25/19 03:47 Hypogranular Neuts Not Reportable 12/25/19 03:47 Smudge Cells Not Reportable 12/25/19 03:47 Toxic Granulation Not Reportable 12/25/19 03:47 Toxic Vacuolation Not Reportable 12/25/19 03:47 Dohle Bodies Not Reportable 12/25/19 03:47 Pelger-Huet Anomaly Not Reportable 12/25/19 03:47 Dominique Rods Not Reportable 12/25/19 03:47 Platelet Estimate Consistent w auto 12/25/19 03:47 Clumped Platelets Not Reportable 12/25/19 03:47 Plt Clumps, EDTA Not Reportable 12/25/19 03:47 Large Platelets Not Reportable 12/25/19 03:47 Giant Platelets Not Reportable 12/25/19 03:47 Platelet Satelliting Not Reportable 12/25/19 03:47 Plt Morphology Comment Not Reportable 12/25/19 03:47 RBC Morphology Not Reportable 12/25/19 03:47 Dimorphic RBCs Not Reportable 12/25/19 03:47 Polychromasia Not Reportable 12/25/19 03:47 Hypochromasia Not Reportable 12/25/19 03:47 Poikilocytosis Not Reportable 12/25/19 03:47 Anisocytosis 1+ 12/25/19 03:47 Microcytosis Not Reportable 12/25/19 03:47 Macrocytosis Not Reportable 12/25/19 03:47 Spherocytes Not Reportable 12/25/19 03:47 Pappenheimer Bodies Not Reportable 12/25/19 03:47 Sickle Cells Not Reportable 12/25/19 03:47 Target Cells Not Reportable 12/25/19 03:47 Tear Drop Cells Not Reportable 12/25/19 03:47 Ovalocytes Not Reportable 12/25/19 03:47 Helmet Cells Not Reportable 12/25/19 03:47 [place] Bodies Not Reportable 12/25/19 03:47 [place] Rings Not Reportable 12/25/19 03:47 Jamshid Cells Not Reportable 12/25/19 03:47 Bite Cells Not Reportable 12/25/19 03:47 Crenated Cell Not Reportable 12/25/19 03:47 Elliptocytes Not Reportable 12/25/19 03:47 Acanthocytes (Spur) Not Reportable 12/25/19 03:47 Rouleaux Not Reportable 12/25/19 03:47 Hemoglobin C Crystals Not Reportable 12/25/19 03:47 Schistocytes Not Reportable 12/25/19 03:47 Malaria parasites Not Reportable 12/25/19 03:47 Gregg Bodies Not Reportable 12/25/19 03:47 Hem Pathologist Commnt No 12/25/19 03:47 PT 17.0 Sec. (12.2-14.9) H 11/23/19 03:47 INR 1.36 (0.87-1.13) H 11/23/19 03:47 APTT 128.2 Sec. (24.2-36.6) H* 11/23/19 03:47 Heparin Anti-Xa Level 0.31 U.I./ml (0.3-0.7) 11/23/19 09:03 ABG pH 7.433 pH Units (7.350-7.450) 03/08/20 13:25 ABG pCO2 40.2 mm Hg 03/08/20 13:25 ABG pO2 71.1 mm Hg (80.0-90.0) L 03/08/20 13:25 ABG HCO3 26.2 mmol/L (20.0-26.0) H 03/08/20 13:25 ABG O2 Saturation 97.0 % (95.0-99.0) 03/08/20 13:25 ABG O2 Content 11.0 (0.0-44) 03/08/20 13:25 ABG Base Excess 1.8 mmol/L (-2.0-3.0) 03/08/20 13:25 ABG Hemoglobin 8.2 gm/dl (12.0-16.0) L 03/08/20 13:25 ABG Carboxyhemoglobin 1.7 % (0.0-5.0) 03/08/20 13:25 ABG Methemoglobin 0.5 % (0.0-1.5) 03/08/20 13:25 Oxyhemoglobin 94.8 % (95.0-99.0) L 03/08/20 13:25 FiO2 21 % 03/08/20 13:25 Sodium 137 mmol/L (137-145) 03/06/20 03:37 Potassium 3.8 mmol/L (3.6-5.0) 03/06/20 03:37 Chloride 99.2 mmol/L (98-107) 03/06/20 03:37 Carbon Dioxide 24 mmol/L (22-30) 03/06/20 03:37 Anion Gap 18 mmol/L 03/06/20 03:37 BUN 26 mg/dL (7-17) H 03/06/20 03:37 Creatinine 0.5 mg/dL (0.7-1.2) L 03/06/20 03:37 Estimated GFR > 60 ml/min 03/06/20 03:37 BUN/Creatinine Ratio 52 % 03/06/20 03:37 Glucose 98 mg/dL (65-100) 03/06/20 03:37 POC Glucose 165 (70-105) H 03/10/20 06:32 Lactic Acid 1.80 mmol/L (0.7-2.0) 11/25/19 05:05 Calcium 10.4 mg/dL (8.4-10.2) H 03/06/20 03:37 Ionized Calcium 4.5 mg/dL (4.8-5.6) L 11/23/19 06:32 Phosphorus 4.20 mg/dL (2.5-4.5) D 11/28/19 08:59 Magnesium 1.90 mg/dL (1.7-2.3) 02/28/20 03:40 Total Bilirubin 0.40 mg/dL (0.1-1.2) 12/13/19 07:48 AST 27 units/L (5-40) 12/13/19 07:48 ALT 26 units/L (7-56) 12/13/19 07:48 Alkaline Phosphatase 316 units/L (35-129) H 12/13/19 07:48 Ammonia 42.0 umol/L (25-60) 11/29/19 13:41 Total Creatine Kinase 139 units/L (30-135) H 11/22/19 23:27 CK-MB (CK-2) 8.3 ng/mL (0.0-4.0) H 11/22/19 23:27 CK-MB (CK-2) Rel Index 5.9 (0-4) H 11/22/19 23:27 Troponin T < 0.010 ng/mL (0.00-0.029) 11/22/19 23:27 Total Protein 6.8 g/dL (6.3-8.2) 12/13/19 07:48 Albumin 2.4 g/dL (3.9-5) L 12/13/19 07:48 Albumin/Globulin Ratio 0.5 % 12/13/19 07:48 Lipase 18 units/L (13-60) 11/23/19 00:34 Procalcitonin 1.09 ng/mL (<0.15) 11/23/19 04:53 TSH 1.010 mlU/mL (0.270-4.200) 02/12/20 07:36 Free T4 1.08 ng/dL (0.76-1.46) 02/12/20 07:36 Urine Color Yellow (Yellow) 12/16/19 Unknown Urine Turbidity Slightly-cloudy (Clear) 12/16/19 Unknown Urine pH 5.0 (5.0-7.0) 12/16/19 Unknown Ur Specific Julian 1.018 (1.003-1.030) 12/16/19 Unknown Urine Protein 30 mg/dl mg/dL (Negative) 12/16/19 Unknown Urine Glucose (UA) Neg mg/dL (Negative) 12/16/19 Unknown Urine Ketones Neg mg/dL (Negative) 12/16/19 Unknown Urine Blood Sm (Negative) 12/16/19 Unknown Urine Nitrite Neg (Negative) 12/16/19 Unknown Urine Bilirubin Neg (Negative) 12/16/19 Unknown Urine Urobilinogen < 2.0 mg/dL (<2.0) 12/16/19 Unknown Ur Leukocyte Esterase Neg (Negative) 12/16/19 Unknown Urine WBC (Auto) 6.0 /HPF (0.0-6.0) 12/16/19 Unknown Urine RBC (Auto) 9.0 /HPF (0.0-6.0) 12/16/19 Unknown U Epithel Cells (Auto) < 1.0 /HPF (0-13.0) 12/16/19 Unknown Urine Bacteria (Auto) 2+ /HPF (Negative) 11/22/19 23:17 Hyaline Casts 3 /LPF 12/16/19 Unknown Granular Casts 3 /LPF 12/16/19 Unknown Urine Mucus Few /HPF 12/16/19 Unknown Vancomycin Trough 33.8 ug/mL (5.0-20.0) H 12/21/19 08:56 Random Vancomycin 16.2 ug/mL (0-40.0) 12/24/19 04:31 Salicylates < 0.3 mg/dL (2.8-20.0) L 11/22/19 23:27 Urine Opiates Screen Presumptive negative 11/22/19 23:17 Urine Methadone Screen Presumptive negative 11/22/19 23:17 Acetaminophen < 5.0 ug/mL (10.0-30.0) L 11/22/19 23:27 Ur Barbiturates Screen Presumptive negative 11/22/19 23:17 Ur Phencyclidine Scrn Presumptive negative 11/22/19 23:17 Ur Amphetamines Screen Presumptive negative 11/22/19 23:17 U Benzodiazepines Scrn Presumptive negative 11/22/19 23:17 Urine Cocaine Screen Presumptive negative 11/22/19 23:17 U Marijuana (THC) Screen Presumptive negative 11/22/19 23:17 Drugs of Abuse Note Disclamer 11/22/19 23:17 Plasma/Serum Alcohol 0.08 % (0-0.07) H 11/22/19 23:27 Coronavirus (PCR) Negative (Negative) 02/05/20 07:50 Hepatitis A IgM Ab Non-reactive (NonReactive) 11/23/19 01:19 Hep Bs Antigen Non-reactive (Negative) 11/23/19 01:19 Hep B Core IgM Ab Non-reactive (NonReactive) 11/23/19 01:19 Hepatitis C Antibody Non-reactive (NonReactive) 11/23/19 01:19 Blood Type O POSITIVE 12/21/19 14:54 Antibody Screen Negative 12/21/19 14:54 Crossmatch See Detail 12/21/19 14:54 - Diagnostic Impressions Diagnostic Impressions: Echocardiogram 11/23/19 03:58 Transthoracic Echocardiogram Indication: Cardiac arrest BP: 131/89 HR: 115 Conclusions *The study quality is technically difficult. *Global left ventricular wall motion and contractility are within normal limits. *The estimated ejection fraction is 55-60%. *Abnormal left ventricular diastolic filling is observed, consistent with impaired relaxation. *There is no pericardial effusion. Findings Procedure Info: The study quality is technically difficult. The study was technically limited due to the patient's inability to lay in the left lateral decubitus position. Left Ventricle: The left ventricular chamber size is normal. There is no left ventricular hypertrophy. Global left ventricular wall motion and contractility are within normal limits. Global left ventricular systolic function is normal. The estimated ejection fraction is 55-60%. Abnormal left ventricular diastolic filling is observed, consistent with impaired relaxation. Left Atrium: The left atrial chamber size is normal. Aortic Valve: The aortic valve leaflets are mildly thickened. Mitral Valve: The mitral valve leaflets are mildly thickened. There is no evidence of mitral regurgitation. Tricuspid Valve: The tricuspid valve leaflets are normal. There is trace tricuspid regurgitation. The right ventricular systolic pressure is calculated at 33 mmHg. Pulmonic Valve: The pulmonic valve appears normal. Pericardium: The pericardium appears normal. There is no pericardial effusion. Aorta: The aorta appears normal. Venous: The inferior vena cava appears normal in size. Measurements Chambers 2D Name Value Normal Range IVSd (2D) 0.94 cm (0.6 - 1.1) LVPWd (2D) 0.81 cm (0.6 - 1.1) LVIDd (2D) 3.6 cm (3.7 - 5.6) LVIDs (2D) 2.27 cm (2 - 3.8) LV FS (2D) 36.93 % - EF Teichholz (2D) 67.76 % - Ao root diameter (2D) 3.03 cm (2 - 3.7) Volumes/Mass Name Value Normal Range LA ESV SP 4CH (A/L) 16.89 ml - LA ESV SP 4CH (MOD) 15.52 ml - Diastolic/Systolic Function Name Value Normal Range MV E-wave Vmax 0.55 m/sec - MV deceleration time 200.89 msec - MV A-wave Vmax 0.68 m/sec - MV E:A ratio 0.82 ratio - Aortic Valve Name Value Normal Range AV Vmax 1.1 m/sec - AV VTI 15.9 cm - AV peak gradient 4.86 mmHg - AV mean gradient 2.59 mmHg - LVOT diameter 2 cm - LVOT Vmax 1.03 m/sec - LVOT VTI 15.87 cm - LVOT peak gradient 4.24 mmHg - LVOT mean gradient 2.41 mmHg - SV LVOT 49.77 ml - JOSÉ MIGUEL (continuity Vmax) 2.93 cm2 - JOSÉ MIGUEL (continuity VTI) 3.13 cm2 - Tricuspid Valve Name Value Normal Range TR Vmax 2.74 m/sec - TR peak gradient 303 mmHg - RAP 3 mmHg - RVSP 33 mmHg - IVC diameter 1.77 cm (1.2 - 2.3) Pulmonic Valve/Qp:Qs Name Value Normal Range PV Vmax 0.77 m/sec - PV peak gradient 2.4 mmHg - PV acceleration time 114.18 msec - Echocardiogram Limited Views 12/17/19 14:53 Transthoracic Echocardiogram Indication: R/O Vegetations BP: 144/83 HR: 133 Conclusions *Global left ventricular systolic function is mildly decreased. *The estimated ejection fraction is 45-50%. *A trivial pericardial effusion is visualized. Findings Left Ventricle: The left ventricular chamber size is normal. Global left ventricular systolic function is mildly decreased. The estimated ejection fraction is 45-50%. Left Atrium: The left atrial chamber size is normal. Right Ventricle: The right ventricular cavity size is normal. Right Atrium: The right atrial cavity size is normal. Aortic Valve: The aortic valve is not well visualized. There is no evidence of aortic regurgitation. Mitral Valve: The mitral valve leaflets are mildly thickened. There is trace of mitral regurgitation. Tricuspid Valve: The tricuspid valve leaflets are mildly thickened. There is trace tricuspid regurgitation. The right ventricular systolic pressure is calculated at 29 mmHg. Pulmonic Valve: The pulmonic valve is not well visualized. There is no evidence of pulmonic regurgitation. Pericardium: A trivial pericardial effusion is visualized. Aorta: There is no dilatation of the ascending aorta. There is no dilatation of the aortic root. Venous: The inferior vena cava appears normal in size. There is a greater than 50% respiratory change in the inferior vena cava dimension. Measurements Chambers 2D Name Value Normal Range IVSd (2D) 0.83 cm (0.6 - 1.1) LVPWd (2D) 0.98 cm (0.6 - 1.1) LVIDd (2D) 3.71 cm (3.7 - 5.6) LVIDs (2D) 2.93 cm (2 - 3.8) LV FS (2D) 21.12 % - EF Teichholz (2D) 43.71 % - Ao root diameter (2D) 3.02 cm (2 - 3.7) Volumes/Mass Name Value Normal Range LA ESV SP 4CH (A/L) 36.8 ml - LA ESV SP 2CH (A/L) 45.89 ml - LA ESV BP (A/L) 42.35 ml - LA ESV BP (A/L) index 26.63 ml/m2 - LA ESV SP 4CH (MOD) 34.42 ml - LA ESV SP 2CH (MOD) 44.21 ml - LA ESV BP (MOD) 39.82 ml - LA ESV BP (MOD) index 25.05 ml/m2 - Aortic Valve Name Value Normal Range LVOT diameter 1.63 cm - Tricuspid Valve Name Value Normal Range TR Vmax 2.56 m/sec - TR peak gradient 26 mmHg - RAP 3 mmHg - RVSP 29 mmHg - IVC diameter 1.83 cm (1.2 - 2.3) Dela Cruz/IV: Voiding Method Incontinent IV Catheter Type [Forearm] Peripheral IV IV Catheter Type [Left Forearm INT / Saline Lock ] IV Catheter Type [Right INT / Saline Lock Antecubital] IV Catheter Type [Right Hand] Peripheral IV IV Catheter Type [Right Wrist] Peripheral IV IV Catheter Type [Left Wrist] Peripheral IV IV Catheter Type [Left Peripheral IV Antecubital] IV Catheter Type [Right INT / Saline Lock Forearm] IV Catheter Type [Left Hand] INT / Saline Lock Active Medications - Current Medications Current Medications: Generic Name Dose Route Start Last Admin Trade Name Freq PRN Reason Stop Dose Admin Acetaminophen 650 mg 12/06/19 10:25 03/09/20 21:22 Tylenol FEEDTUBE 650 mg Q6H PRN Administration TEMP >/=100.3 Acetylcysteine 200 mg 02/16/20 20:00 03/10/20 08:45 Mucomyst Inhalation INHALATION 200 mg Q12HRT LUCHO Administration Alprazolam 1 mg 02/21/20 18:24 03/09/20 21:22 Xanax PO 1 mg Q8H PRN Administration Anxiety Amoxicillin/Clavulanate Potassium 1 each 03/09/20 14:00 03/09/20 21:21 Augmentin 875 Mg PO 03/15/20 22:01 1 each Q12HR LUCHO Administration Lipase/Protease/Amylase 1 each 11/23/19 11:[address] 10,500 Unit FEEDTUBE PRN PRN Use w/ sod bicarb for FT Bisacodyl 10 mg 02/06/20 13:57 Dulcolax VA QDAY PRN Constipation unrelieved by MOM Dexamethasone 8 mg 03/09/20 14:00 03/10/20 05:21 Decadron IV 03/14/20 23:59 8 mg Q6HR LUCHO Administration Docusate Sodium 100 mg 02/18/20 22:00 03/09/20 21:21 Colace FEEDTUBE 100 mg BID LUCHO Administration Enoxaparin Sodium 40 mg 03/07/20 22:00 03/09/20 21:21 Enoxaparin SUB-Q 40 mg QDAY@2200 ULCHO Administration Glycopyrrolate 2 mg 12/31/19 20:00 03/09/20 21:21 Robinul PO 2 mg TID LUCHO Administration Haloperidol Lactate 5 mg 03/05/20 09:22 03/07/20 17:13 Haldol IM 5 mg Q6H PRN Administration Agitation Hydralazine HCl 10 mg 11/24/19 00:45 03/03/20 05:57 Apresoline IV 10 mg Q6H PRN Administration SBP > 160 Hydroxyzine Pamoate 25 mg 12/06/19 10:00 03/09/20 21:22 Vistaril PO 25 mg BID LUCHO Administration Lansoprazole 30 mg 11/27/19 10:00 03/09/20 12:27 Prevacid Solutab FEEDTUBE 30 mg QDAY LUCHO Administration Levalbuterol HCl 0.63 mg 02/17/20 00:00 03/10/20 08:45 Xopenex IH 0.63 mg Q8HRT LUCHO Administration Levetiracetam 500 mg 11/29/19 10:00 03/09/20 21:21 Keppra PO 500 mg BID LUCHO Administration Metoprolol Tartrate 12.5 mg 02/23/20 22:00 03/09/20 21:57 Metoprolol PO 12.5 mg BID LUCHO Administration Mirtazapine 30 mg 12/06/19 10:00 03/09/20 12:16 Remeron PO 30 mg DAILY LUCHO Administration Nicotine 21 mg 02/16/20 13:00 03/09/20 12:11 Habitrol TD 21 mg QDAY LUCHO Administration Ondansetron HCl 4 mg 12/10/19 07:53 02/25/20 02:51 Zofran IV 4 mg Q4H PRN Administration Nausea And Vomiting Polyethylene Glycol 17 gm 02/06/20 13:57 Miralax 3350 PO QDAY PRN Constipation Quetiapine Fumarate 100 mg 03/06/20 10:00 03/09/20 21:22 Seroquel FEEDTUBE 100 mg BID LUCHO Administration Scopolamine 1 each 02/08/20 15:00 03/09/20 12:20 Transderm-Scop TD 1 each Q3D LUCHO Administration Sertraline HCl 25 mg 01/01/20 10:00 03/09/20 12:10 Zoloft PO 25 mg QDAY LUCHO Administration Simple Syrup 15 ml 11/23/19 11:50 Simple Syrup FEEDTUBE PRN PRN Hypoglycemia BG<70 Simple Syrup 30 ml 11/23/19 11:50 Simple Syrup FEEDTUBE PRN PRN Hypoglycemia Sodium Bicarbonate 325 mg 11/23/19 11:50 Sodium Bicarbonate FEEDTUBE PRN PRN For Clogged Feeding Tube Nutrition/Malnutrition Assess - Dietary Evaluation Nutrition/Malnutrition Findings: Nutrition Notes Start: 11/23/19 11:29 Freq: Status: Active Protocol: Document 03/07/20 12:40 LM (Rec: 03/07/20 12:48 LM [email or web address]) Nutrition Notes Initial or Follow up Reassessment Current Diagnosis Hypertension Other Pertinent Diagnosis Cardaic arrest, ETOH dependence, UTI Current Diet Jevity 1.2 at 60ml/hr Labs/Tests Reviewed Pertinent Medications Reviewed Height 5 ft 6 in Weight 46.7 kg [place] Body Weight (kg) 59.09 BMI 16.6 Subjective/Other Information Jevity running at goal and pt is tolerating. Percent of energy/protein needs met: 97%/100% Burn Absent Trauma Absent GI Symptoms None Current % PO Negligible Interpretation of Weight Loss (severe) >2% in 1 week Muscle Mass Mild Depletion (non-severe) #2 Nutrition Diagnosis Malnutrition Diagnosis Progress(for reassessment Improved documentation) #1 Nutrition Diagnosis Inadequate oral intake Diagnosis Progress(for reassessment Continues documentation) Is patient on ventilator? No Is Patient Ambulatory and/or Out of Bed No REE-([place]. Jeor-confined to bed) 1305.120 Kcal/Kg value to use for calculation 38 Approximate Energy Requirements Using 1775 kcal/Kg Calculation Used for Recommendations Kcal/kg Additional Notes Protein: 60-75g (1.2-1.5g/kg) Fluid: 1 ml/kcal Nutrition Intervention Change Diet Order: Continue TF Nutrition Support: Jevity 1.2 at 60ml/hr Flush 100ml q4h Kcal 1,728 Protein (gm) 80 Fluid (mL) 1,162 Goal #1 TF tolerance Goal #2 Meet at least 80% of energy and protein needs via TF Goal #3 Wt gain/maintenacne Anticipated Discharge Needs: TF Follow-Up By: 03/13/20 Additional Comments F/U for TF tolerance
[2020-03-10] MEDS: GLYCOPYRROLATE 1 MG TAB PO SCH ×3 (09:37→21:45)
[2020-03-10] MEDS: QUEtiapine 100 MG TAB FEEDTUBE SCH ×2 (11:31→22:55)
[2020-03-10] MEDS: levETIRAcetam 500 MG/5 ML ORAL LIQD PO SCH ×2 (11:37→22:55)
[2020-03-10] MEDS: hydrOXYzine PAMOATE 25 MG CAP PO SCH ×2 (11:37→22:55)
[2020-03-10] MEDS: METOPROLOL TARTRATE 25 MG TAB PO SCH ×2 (11:45→22:55)
[2020-03-10] MEDS: AMOXICILLIN/K CLAV 875/125MG TAB PO SCH ×2 (11:45→22:55)
[2020-03-10] MEDS: SERTRALINE 50 MG TAB PO SCH (11:46)
[2020-03-10] MEDS: ALPRAZolam 1 MG TAB PO PRN (11:46)
[2020-03-10] MEDS: NICOTINE 21 MG/24 HR PATCH TD SCH (11:47)
[2020-03-10] MEDS: MIRTAZAPINE 30 MG TAB PO SCH (11:47)
[2020-03-10] MEDS: DOCUSATE SODIUM 100 MG/10 ML ORAL LIQD FEEDTUBE SCH ×2 (11:47→22:55)
[2020-03-10] MEDS: LANSOPRAZOLE 30 MG SOLUTAB FEEDTUBE SCH (11:48)
[2020-03-10] MEDS: ENOXAPARIN 40 MG/0.4 ML INJ SUB-Q SCH (22:55)
[2020-03-11] MEDS: ALPRAZolam 1 MG TAB PO PRN ×3 (00:39→22:14)
[2020-03-11] MEDS: dexAMETHasone 4 MG/ML VIAL IV SCH ×4 (01:45→20:02)
[2020-03-11] MEDS: LEVALBUTEROL 0.63 MG/3 ML NEBU IH SCH ×4 (06:05→21:06)
[2020-03-11] MEDS: ACETYLCYSTEINE 20% 200 MG/1 ML *FOR INHALATION USE INHALATION SCH ×2 (08:00→21:06)
[2020-03-11] MEDS: DOCUSATE SODIUM 100 MG/10 ML ORAL LIQD FEEDTUBE SCH ×2 (08:59→22:15)
--- NOTE | 2020-03-11 09:16 | Progress Note ---
Assessment and Plan Assessment and plan: 54-year-old female with a past medical history of Hypertension, Depression, Tobacco use Disorder, Alcohol use Disorder as confirmed by Daughter and pt's mother presents to the hospital status post cardiac arrest at home. EMS found pt in [facility]. They were unable to intubate patient with a ET tube because she was clenching down therefore Joe airway placed. Per the ED physician who evaluated pt, Patient presented with a pulse, intermittent respirations, and bagging support via Joe airway with O2 sat of 100%. Accu-Chek of 71 obtained by EMS. She was intubated in the ER and called for admission. Following admission patient was diagnosed with anoxic brain injury, sepsis with MRSA bacteremia and MSSA pneumonia, alcoholic liver disease. Family member initially wished for full code then changed to DNR, patient treated with IV antibiotics for sepsis, status post trach and PEG on 12/13/19. Weaned off from the vent and put on T- piece. Patient is uninsured, waiting for placement, guarded prognosis. 03/07: Returning to service no acute changes are noted. Continue current management while awaiting placement. Intermittent labs. Base of neck also around tracheostomy tube preventing downgrading. Continue appropriate wound care. 03/08: Plan of care unchanged continues on aerosol trach collar 28% of oxygen. Continue wound care management placement still pending status decision. 03/09: Continue current treatment plan. Continue aspiration precaution 03/10: Continue current management, Restraints as patient still pulling, awaiting placement 03/11: Continue supportive care, intermittent suctioning and pulmonary toilet. awaiting placement. / Anoxic brain injury: suspected CT head: No acute abnormality. EEG ordered showed Generalized slowing. No seizures or epileptiform activity. -Patient now opening her eyes, can speak and able to follow command - as needed haldol for agitation /Acute Respiratory failure -due to MSSA PNA -s/p intubation, s/p trach and PEG on 12/12 with mechanical ventilation, now on T-piece - CTA was done and negative for PE, - Echo quality is poor, showed diastolic dysfunction - continue weaning as tolerated -Continue appropriate and adequate tracheostomy care /Tracheostomy site ulceration -Continue appropriate wound management try to keep area dry. /Anemia, microcytic - Status post 3 units PRBC transfusion, H&H low stable /Acute metabolic encephalopathy/toxic encephalopathy due to the above - cont supportive care /Hyperammonemia - likely from liver disease related to EtOH abuse - Patient had elevated ammonia level and treated with lactulose /Metabolic Acidosis -Alcohol ketoacidosis vs hypoprofusion -Continue to monitor /ELevated LFTs, stable now - due to ischemic hepatitis. /Leucocytosis with sepsis - Source MRSA bacteremia and MSSA pneumonia. UA showed pyuria. RUQ US showed no ascites. - Repeat TTE negative for vegetation. Completed 7 days of Ceftriaxone on 11/29/2019. -Treated with Abx vancomycin 1 gm IV q 12 hour total 2 week till 12/30/2019 /Severe protein calorie malnutrition Dietitian consult to assist in management. /MSSA pneumonia: Status post vancomycin till 12/30/2019 /Alcohol use Disorder - given ongoing Alcohol use almost daily, s/p IV Thiamine - monitor /Severe hypokalemia -Repleted /Seizure disorder: treat with Keppra /H. Influenzae, tracheobronchitis, treated with abx /Moderate to severe fecal impaction - will add stool softner DNR CODE STATUS Disposition: prognosis guarded. Family okay for DNR, PT recommended subacute rehab, discharge pending on placement. negative for COVID 19 History Interval history: Patient seen and examined no clinical change at this time continues on ATC at 28% off oxygen. Admits agitated this morning Hospitalist Physical - Physical exam Narrative exam: General appearance: Present: Appears older than stated age tries to talk. Intermittent agitation - EENT Eyes: no scleral icterus, no conjunctival injection, pupil not reactive ENT: clear oral mucosa, dentition normal, no oropharyngeal erythema Ears: bilateral: normal - Neck Neck: trach on place with mild ulceration at the base. - Respiratory Respiratory effort: other (on T-piece) Respiratory: bilateral: rales - Cardiovascular Rhythm: regular Heart Sounds: Present: S1 & S2. Absent: gallop, rub Extremities: pulses intact, No edema, normal color - Gastrointestinal General gastrointestinal: Present: soft, non-tender, non-distended, normal bowel sounds - Integumentary Integumentary: clear, warm, dry - Musculoskeletal Musculoskeletal: No joint swelling or tenderness - Neurologic Neurologic: other (2+ reflexes throughout). respond to commend and nods head. generalized weakness, verbal - Psychiatric Psychiatric: co-operative - Constitutional Vitals: Temp Pulse Resp BP Pulse Ox 98.3 F 84 18 119/71 95 03/11/20 03:56 03/11/20 03:56 03/11/20 03:56 03/11/20 03:56 03/11/20 03:56 General appearance: Present: mild distress, cachectic, disheveled, other (Noncommunicative) HEART Score - HEART Score Troponin: Troponin T < 0.010 ng/mL (0.00-0.029) 11/22/19 23:27 Results - Labs CBC & Chem 7: 03/06/20 03:37 03/06/20 03:37 Labs: Laboratory Last Values WBC 8.1 K/mm3 (4.5-11.0) 03/06/20 03:37 RBC 3.79 M/mm3 (3.65-5.03) 03/06/20 03:37 Hgb 11.2 gm/dl (10.1-14.3) 03/06/20 03:37 Hct 33.3 % (30.3-42.9) 03/06/20 03:37 MCV 88 fl (79-97) 03/06/20 03:37 MCH 30 pg (28-32) 03/06/20 03:37 MCHC 34 % (30-34) 03/06/20 03:37 RDW 14.6 % (13.2-15.2) 03/06/20 03:37 Plt Count 550 K/mm3 (140-440) H 03/06/20 03:37 Lymph % (Auto) 27.8 % (13.4-35.0) 03/06/20 03:37 Kerr % (Auto) 9.1 % (0.0-7.3) H 03/06/20 03:37 Eos % (Auto) 2.8 % (0.0-4.3) 03/06/20 03:37 Baso % (Auto) 0.7 % (0.0-1.8) 03/06/20 03:37 Lymph # 2.2 K/mm3 (1.2-5.4) 03/06/20 03:37 Kerr # 0.7 K/mm3 (0.0-0.8) 03/06/20 03:37 Eos # 0.2 K/mm3 (0.0-0.4) 03/06/20 03:37 Baso # 0.1 K/mm3 (0.0-0.1) 03/06/20 03:37 Add Manual Diff Complete 12/25/19 03:47 Total Counted 200 12/25/19 03:47 Seg Neutrophils % 59.6 % (40.0-70.0) 03/06/20 03:37 Seg Neuts % (Manual) 97.5 % (40.0-70.0) H 12/25/19 03:47 Band Neutrophils % 0 % 12/25/19 03:47 Lymphocytes % (Manual) 1.0 % (13.4-35.0) L 12/25/19 03:47 Reactive Lymphs % (Man) 0 % 12/25/19 03:47 Monocytes % (Manual) 1.5 % (0.0-7.3) 12/25/19 03:47 Eosinophils % (Manual) 0 % (0.0-4.3) 12/25/19 03:47 Basophils % (Manual) 0 % (0.0-1.8) 12/25/19 03:47 Metamyelocytes % 0 % 12/25/19 03:47 Myelocytes % 0 % 12/25/19 03:47 Promyelocytes % 0 % 12/25/19 03:47 Blast Cells % 0 % 12/25/19 03:47 Nucleated RBC % Not Reportable 12/25/19 03:47 Seg Neutrophils # 4.8 K/mm3 (1.8-7.7) 03/06/20 03:37 Seg Neutrophils # Man 35.3 K/mm3 (1.8-7.7) H 12/25/19 03:47 Band Neutrophils # 0.0 K/mm3 12/25/19 03:47 Lymphocytes # (Manual) 0.4 K/mm3 (1.2-5.4) L 12/25/19 03:47 Abs React Lymphs (Man) 0.0 K/mm3 12/25/19 03:47 Monocytes # (Manual) 0.5 K/mm3 (0.0-0.8) 12/25/19 03:47 Eosinophils # (Manual) 0.0 K/mm3 (0.0-0.4) 12/25/19 03:47 Basophils # (Manual) 0.0 K/mm3 (0.0-0.1) 12/25/19 03:47 Metamyelocytes # 0.0 K/mm3 12/25/19 03:47 Myelocytes # 0.0 K/mm3 12/25/19 03:47 Promyelocytes # 0.0 K/mm3 12/25/19 03:47 Blast Cells # 0.0 K/mm3 12/25/19 03:47 Pathologist Review 12/13/19 07:48 WBC Morphology Not Reportable 12/25/19 03:47 Hypersegmented Neuts Not Reportable 12/25/19 03:47 Hyposegmented Neuts Not Reportable 12/25/19 03:47 Hypogranular Neuts Not Reportable 12/25/19 03:47 Smudge Cells Not Reportable 12/25/19 03:47 Toxic Granulation Not Reportable 12/25/19 03:47 Toxic Vacuolation Not Reportable 12/25/19 03:47 Dohle Bodies Not Reportable 12/25/19 03:47 Pelger-Huet Anomaly Not Reportable 12/25/19 03:47 Dominique Rods Not Reportable 12/25/19 03:47 Platelet Estimate Consistent w auto 12/25/19 03:47 Clumped Platelets Not Reportable 12/25/19 03:47 Plt Clumps, EDTA Not Reportable 12/25/19 03:47 Large Platelets Not Reportable 12/25/19 03:47 Giant Platelets Not Reportable 12/25/19 03:47 Platelet Satelliting Not Reportable 12/25/19 03:47 Plt Morphology Comment Not Reportable 12/25/19 03:47 RBC Morphology Not Reportable 12/25/19 03:47 Dimorphic RBCs Not Reportable 12/25/19 03:47 Polychromasia Not Reportable 12/25/19 03:47 Hypochromasia Not Reportable 12/25/19 03:47 Poikilocytosis Not Reportable 12/25/19 03:47 Anisocytosis 1+ 12/25/19 03:47 Microcytosis Not Reportable 12/25/19 03:47 Macrocytosis Not Reportable 12/25/19 03:47 Spherocytes Not Reportable 12/25/19 03:47 Pappenheimer Bodies Not Reportable 12/25/19 03:47 Sickle Cells Not Reportable 12/25/19 03:47 Target Cells Not Reportable 12/25/19 03:47 Tear Drop Cells Not Reportable 12/25/19 03:47 Ovalocytes Not Reportable 12/25/19 03:47 Helmet Cells Not Reportable 12/25/19 03:47 Frias-Gumbranch Bodies Not Reportable 12/25/19 03:47 Ephraim Rings Not Reportable 12/25/19 03:47 Jamshid Cells Not Reportable 12/25/19 03:47 Bite Cells Not Reportable 12/25/19 03:47 Crenated Cell Not Reportable 12/25/19 03:47 Elliptocytes Not Reportable 12/25/19 03:47 Acanthocytes (Spur) Not Reportable 12/25/19 03:47 Rouleaux Not Reportable 12/25/19 03:47 Hemoglobin C Crystals Not Reportable 12/25/19 03:47 Schistocytes Not Reportable 12/25/19 03:47 Malaria parasites Not Reportable 12/25/19 03:47 Gregg Bodies Not Reportable 12/25/19 03:47 Hem Pathologist Commnt No 12/25/19 03:47 PT 17.0 Sec. (12.2-14.9) H 11/23/19 03:47 INR 1.36 (0.87-1.13) H 11/23/19 03:47 APTT 128.2 Sec. (24.2-36.6) H* 11/23/19 03:47 Heparin Anti-Xa Level 0.31 U.I./ml (0.3-0.7) 11/23/19 09:03 ABG pH 7.433 pH Units (7.350-7.450) 03/08/20 13:25 ABG pCO2 40.2 mm Hg 03/08/20 13:25 ABG pO2 71.1 mm Hg (80.0-90.0) L 03/08/20 13:25 ABG HCO3 26.2 mmol/L (20.0-26.0) H 03/08/20 13:25 ABG O2 Saturation 97.0 % (95.0-99.0) 03/08/20 13:25 ABG O2 Content 11.0 (0.0-44) 03/08/20 13:25 ABG Base Excess 1.8 mmol/L (-2.0-3.0) 03/08/20 13:25 ABG Hemoglobin 8.2 gm/dl (12.0-16.0) L 03/08/20 13:25 ABG Carboxyhemoglobin 1.7 % (0.0-5.0) 03/08/20 13:25 ABG Methemoglobin 0.5 % (0.0-1.5) 03/08/20 13:25 Oxyhemoglobin 94.8 % (95.0-99.0) L 03/08/20 13:25 FiO2 21 % 03/08/20 13:25 Sodium 137 mmol/L (137-145) 03/06/20 03:37 Potassium 3.8 mmol/L (3.6-5.0) 03/06/20 03:37 Chloride 99.2 mmol/L (98-107) 03/06/20 03:37 Carbon Dioxide 24 mmol/L (22-30) 03/06/20 03:37 Anion Gap 18 mmol/L 03/06/20 03:37 BUN 26 mg/dL (7-17) H 03/06/20 03:37 Creatinine 0.5 mg/dL (0.7-1.2) L 03/06/20 03:37 Estimated GFR > 60 ml/min 03/06/20 03:37 BUN/Creatinine Ratio 52 % 03/06/20 03:37 Glucose 98 mg/dL (65-100) 03/06/20 03:37 POC Glucose 139 (70-105) H 03/11/20 06:23 Lactic Acid 1.80 mmol/L (0.7-2.0) 11/25/19 05:05 Calcium 10.4 mg/dL (8.4-10.2) H 03/06/20 03:37 Ionized Calcium 4.5 mg/dL (4.8-5.6) L 11/23/19 06:32 Phosphorus 4.20 mg/dL (2.5-4.5) D 11/28/19 08:59 Magnesium 1.90 mg/dL (1.7-2.3) 02/28/20 03:40 Total Bilirubin 0.40 mg/dL (0.1-1.2) 12/13/19 07:48 AST 27 units/L (5-40) 12/13/19 07:48 ALT 26 units/L (7-56) 12/13/19 07:48 Alkaline Phosphatase 316 units/L (35-129) H 12/13/19 07:48 Ammonia 42.0 umol/L (25-60) 11/29/19 13:41 Total Creatine Kinase 139 units/L (30-135) H 11/22/19 23:27 CK-MB (CK-2) 8.3 ng/mL (0.0-4.0) H 11/22/19 23:27 CK-MB (CK-2) Rel Index 5.9 (0-4) H 11/22/19 23:27 Troponin T < 0.010 ng/mL (0.00-0.029) 11/22/19 23:27 Total Protein 6.8 g/dL (6.3-8.2) 12/13/19 07:48 Albumin 2.4 g/dL (3.9-5) L 12/13/19 07:48 Albumin/Globulin Ratio 0.5 % 12/13/19 07:48 Lipase 18 units/L (13-60) 11/23/19 00:34 Procalcitonin 1.09 ng/mL (<0.15) 11/23/19 04:53 TSH 1.010 mlU/mL (0.270-4.200) 02/12/20 07:36 Free T4 1.08 ng/dL (0.76-1.46) 02/12/20 07:36 Urine Color Yellow (Yellow) 12/16/19 Unknown Urine Turbidity Slightly-cloudy (Clear) 12/16/19 Unknown Urine pH 5.0 (5.0-7.0) 12/16/19 Unknown Ur Specific [place] 1.018 (1.003-1.030) 12/16/19 Unknown Urine Protein 30 mg/dl mg/dL (Negative) 12/16/19 Unknown Urine Glucose (UA) Neg mg/dL (Negative) 12/16/19 Unknown Urine Ketones Neg mg/dL (Negative) 12/16/19 Unknown Urine Blood Sm (Negative) 12/16/19 Unknown Urine Nitrite Neg (Negative) 12/16/19 Unknown Urine Bilirubin Neg (Negative) 12/16/19 Unknown Urine Urobilinogen < 2.0 mg/dL (<2.0) 12/16/19 Unknown Ur Leukocyte Esterase Neg (Negative) 12/16/19 Unknown Urine WBC (Auto) 6.0 /HPF (0.0-6.0) 12/16/19 Unknown Urine RBC (Auto) 9.0 /HPF (0.0-6.0) 12/16/19 Unknown U Epithel Cells (Auto) < 1.0 /HPF (0-13.0) 12/16/19 Unknown Urine Bacteria (Auto) 2+ /HPF (Negative) 11/22/19 23:17 Hyaline Casts 3 /LPF 12/16/19 Unknown Granular Casts 3 /LPF 12/16/19 Unknown Urine Mucus Few /HPF 12/16/19 Unknown Vancomycin Trough 33.8 ug/mL (5.0-20.0) H 12/21/19 08:56 Random Vancomycin 16.2 ug/mL (0-40.0) 12/24/19 04:31 Salicylates < 0.3 mg/dL (2.8-20.0) L 11/22/19 23:27 Urine Opiates Screen Presumptive negative 11/22/19 23:17 Urine Methadone Screen Presumptive negative 11/22/19 23:17 Acetaminophen < 5.0 ug/mL (10.0-30.0) L 11/22/19 23:27 Ur Barbiturates Screen Presumptive negative 11/22/19 23:17 Ur Phencyclidine Scrn Presumptive negative 11/22/19 23:17 Ur Amphetamines Screen Presumptive negative 11/22/19 23:17 U Benzodiazepines Scrn Presumptive negative 11/22/19 23:17 Urine Cocaine Screen Presumptive negative 11/22/19 23:17 U Marijuana (THC) Screen Presumptive negative 11/22/19 23:17 Drugs of Abuse Note Disclamer 11/22/19 23:17 Plasma/Serum Alcohol 0.08 % (0-0.07) H 11/22/19 23:27 Coronavirus (PCR) Negative (Negative) 02/05/20 07:50 Hepatitis A IgM Ab Non-reactive (NonReactive) 11/23/19 01:19 Hep Bs Antigen Non-reactive (Negative) 11/23/19 01:19 Hep B Core IgM Ab Non-reactive (NonReactive) 11/23/19 01:19 Hepatitis C Antibody Non-reactive (NonReactive) 11/23/19 01:19 Blood Type O POSITIVE 12/21/19 14:54 Antibody Screen Negative 12/21/19 14:54 Crossmatch See Detail 12/21/19 14:54 - Diagnostic Impressions Diagnostic Impressions: Echocardiogram 11/23/19 03:58 Transthoracic Echocardiogram Indication: Cardiac arrest BP: 131/89 HR: 115 Conclusions *The study quality is technically difficult. *Global left ventricular wall motion and contractility are within normal limits. *The estimated ejection fraction is 55-60%. *Abnormal left ventricular diastolic filling is observed, consistent with impaired relaxation. *There is no pericardial effusion. Findings Procedure Info: The study quality is technically difficult. The study was technically limited due to the patient's inability to lay in the left lateral decubitus position. Left Ventricle: The left ventricular chamber size is normal. There is no left ventricular hypertrophy. Global left ventricular wall motion and contractility are within normal limits. Global left ventricular systolic function is normal. The estimated ejection fraction is 55-60%. Abnormal left ventricular diastolic filling is observed, consistent with impaired relaxation. Left Atrium: The left atrial chamber size is normal. Aortic Valve: The aortic valve leaflets are mildly thickened. Mitral Valve: The mitral valve leaflets are mildly thickened. There is no evidence of mitral regurgitation. Tricuspid Valve: The tricuspid valve leaflets are normal. There is trace tricuspid regurgitation. The right ventricular systolic pressure is calculated at 33 mmHg. Pulmonic Valve: The pulmonic valve appears normal. Pericardium: The pericardium appears normal. There is no pericardial effusion. Aorta: The aorta appears normal. Venous: The inferior vena cava appears normal in size. Measurements Chambers 2D Name Value Normal Range IVSd (2D) 0.94 cm (0.6 - 1.1) LVPWd (2D) 0.81 cm (0.6 - 1.1) LVIDd (2D) 3.6 cm (3.7 - 5.6) LVIDs (2D) 2.27 cm (2 - 3.8) LV FS (2D) 36.93 % - EF Teichholz (2D) 67.76 % - Ao root diameter (2D) 3.03 cm (2 - 3.7) Volumes/Mass Name Value Normal Range LA ESV SP 4CH (A/L) 16.89 ml - LA ESV SP 4CH (MOD) 15.52 ml - Diastolic/Systolic Function Name Value Normal Range MV E-wave Vmax 0.55 m/sec - MV deceleration time 200.89 msec - MV A-wave Vmax 0.68 m/sec - MV E:A ratio 0.82 ratio - Aortic Valve Name Value Normal Range AV Vmax 1.1 m/sec - AV VTI 15.9 cm - AV peak gradient 4.86 mmHg - AV mean gradient 2.59 mmHg - LVOT diameter 2 cm - LVOT Vmax 1.03 m/sec - LVOT VTI 15.87 cm - LVOT peak gradient 4.24 mmHg - LVOT mean gradient 2.41 mmHg - SV LVOT 49.77 ml - JOSÉ MIGUEL (continuity Vmax) 2.93 cm2 - JOSÉ MIGUEL (continuity VTI) 3.13 cm2 - Tricuspid Valve Name Value Normal Range TR Vmax 2.74 m/sec - TR peak gradient 303 mmHg - RAP 3 mmHg - RVSP 33 mmHg - IVC diameter 1.77 cm (1.2 - 2.3) Pulmonic Valve/Qp:Qs Name Value Normal Range PV Vmax 0.77 m/sec - PV peak gradient 2.4 mmHg - PV acceleration time 114.18 msec - Echocardiogram Limited Views 12/17/19 14:53 Transthoracic Echocardiogram Indication: R/O Vegetations BP: 144/83 HR: 133 Conclusions *Global left ventricular systolic function is mildly decreased. *The estimated ejection fraction is 45-50%. *A trivial pericardial effusion is visualized. Findings Left Ventricle: The left ventricular chamber size is normal. Global left ventricular systolic function is mildly decreased. The estimated ejection fraction is 45-50%. Left Atrium: The left atrial chamber size is normal. Right Ventricle: The right ventricular cavity size is normal. Right Atrium: The right atrial cavity size is normal. Aortic Valve: The aortic valve is not well visualized. There is no evidence of aortic regurgitation. Mitral Valve: The mitral valve leaflets are mildly thickened. There is trace of mitral regurgitation. Tricuspid Valve: The tricuspid valve leaflets are mildly thickened. There is trace tricuspid regurgitation. The right ventricular systolic pressure is calculated at 29 mmHg. Pulmonic Valve: The pulmonic valve is not well visualized. There is no evidence of pulmonic regurgitation. Pericardium: A trivial pericardial effusion is visualized. Aorta: There is no dilatation of the ascending aorta. There is no dilatation of the aortic root. Venous: The inferior vena cava appears normal in size. There is a greater than 50% respiratory change in the inferior vena cava dimension. Measurements Chambers 2D Name Value Normal Range IVSd (2D) 0.83 cm (0.6 - 1.1) LVPWd (2D) 0.98 cm (0.6 - 1.1) LVIDd (2D) 3.71 cm (3.7 - 5.6) LVIDs (2D) 2.93 cm (2 - 3.8) LV FS (2D) 21.12 % - EF Teichholz (2D) 43.71 % - Ao root diameter (2D) 3.02 cm (2 - 3.7) Volumes/Mass Name Value Normal Range LA ESV SP 4CH (A/L) 36.8 ml - LA ESV SP 2CH (A/L) 45.89 ml - LA ESV BP (A/L) 42.35 ml - LA ESV BP (A/L) index 26.63 ml/m2 - LA ESV SP 4CH (MOD) 34.42 ml - LA ESV SP 2CH (MOD) 44.21 ml - LA ESV BP (MOD) 39.82 ml - LA ESV BP (MOD) index 25.05 ml/m2 - Aortic Valve Name Value Normal Range LVOT diameter 1.63 cm - Tricuspid Valve Name Value Normal Range TR Vmax 2.56 m/sec - TR peak gradient 26 mmHg - RAP 3 mmHg - RVSP 29 mmHg - IVC diameter 1.83 cm (1.2 - 2.3) Dela Cruz/IV: Voiding Method Incontinent IV Catheter Type [Forearm] Peripheral IV IV Catheter Type [Left Forearm INT / Saline Lock ] IV Catheter Type [Right INT / Saline Lock Antecubital] IV Catheter Type [Right Hand] Peripheral IV IV Catheter Type [Right Wrist] Peripheral IV IV Catheter Type [Left Wrist] Peripheral IV IV Catheter Type [Left Peripheral IV Antecubital] IV Catheter Type [Right INT / Saline Lock Forearm] IV Catheter Type [Left Hand] INT / Saline Lock Active Medications - Current Medications Current Medications: Generic Name Dose Route Start Last Admin Trade Name Freq PRN Reason Stop Dose Admin Acetaminophen 650 mg 12/06/19 10:25 03/09/20 21:22 Tylenol FEEDTUBE 650 mg Q6H PRN Administration TEMP >/=100.3 Acetylcysteine 200 mg 02/16/20 20:00 03/11/20 08:00 Mucomyst Inhalation INHALATION 200 mg Q12HRT LUCHO Administration Alprazolam 1 mg 02/21/20 18:24 03/11/20 00:39 Xanax PO 1 mg Q8H PRN Administration Anxiety Amoxicillin/Clavulanate Potassium 1 each 03/09/20 14:00 03/10/20 22:55 Augmentin 875 Mg PO 03/15/20 22:01 1 each Q12HR LUCHO Administration Lipase/Protease/Amylase 1 each 11/23/19 11:[address] 10,500 Unit FEEDTUBE PRN PRN Use w/ sod bicarb for FT Bisacodyl 10 mg 02/06/20 13:57 Dulcolax AL QDAY PRN Constipation unrelieved by MOM Dexamethasone 8 mg 03/09/20 14:00 03/11/20 06:42 Decadron IV 03/14/20 23:59 8 mg Q6HR LUCHO Administration Docusate Sodium 100 mg 02/18/20 22:00 03/10/20 22:55 Colace FEEDTUBE 100 mg BID LUCHO Administration Enoxaparin Sodium 40 mg 03/07/20 22:00 03/10/20 22:55 Enoxaparin SUB-Q 40 mg QDAY@2200 LUCHO Administration Glycopyrrolate 2 mg 12/31/19 20:00 03/10/20 21:45 Robinul PO 2 mg TID LUCHO Administration Haloperidol Lactate 5 mg 03/05/20 09:22 03/07/20 17:13 Haldol IM 5 mg Q6H PRN Administration Agitation Hydralazine HCl 10 mg 11/24/19 00:45 03/03/20 05:57 Apresoline IV 10 mg Q6H PRN Administration SBP > 160 Hydroxyzine Pamoate 25 mg 12/06/19 10:00 03/10/20 22:55 Vistaril PO 25 mg BID LUCHO Administration Lansoprazole 30 mg 11/27/19 10:00 03/10/20 11:48 Prevacid Solutab FEEDTUBE 30 mg QDAY LUCHO Administration Levalbuterol HCl 0.63 mg 02/17/20 00:00 03/11/20 08:00 Xopenex IH 0.63 mg Q8HRT LUCHO Administration Levetiracetam 500 mg 11/29/19 10:00 03/10/20 22:55 Keppra PO 500 mg BID LUCHO Administration Metoprolol Tartrate 12.5 mg 02/23/20 22:00 03/10/20 22:55 Metoprolol PO 12.5 mg BID LUCHO Administration Mirtazapine 30 mg 12/06/19 10:00 03/10/20 11:47 Remeron PO 30 mg DAILY LUCHO Administration Nicotine 21 mg 02/16/20 13:00 03/10/20 11:47 Habitrol TD 21 mg QDAY LUCHO Administration Ondansetron HCl 4 mg 12/10/19 07:53 02/25/20 02:51 Zofran IV 4 mg Q4H PRN Administration Nausea And Vomiting Polyethylene Glycol 17 gm 02/06/20 13:57 Miralax 3350 PO QDAY PRN Constipation Quetiapine Fumarate 100 mg 03/06/20 10:00 03/10/20 22:55 Seroquel FEEDTUBE 100 mg BID LUCHO Administration Scopolamine 1 each 02/08/20 15:00 03/09/20 12:20 Transderm-Scop TD 1 each Q3D LUCHO Administration Sertraline HCl 25 mg 01/01/20 10:00 03/10/20 11:46 Zoloft PO 25 mg QDAY LUCHO Administration Simple Syrup 15 ml 11/23/19 11:50 Simple Syrup FEEDTUBE PRN PRN Hypoglycemia BG<70 Simple Syrup 30 ml 11/23/19 11:50 Simple Syrup FEEDTUBE PRN PRN Hypoglycemia Sodium Bicarbonate 325 mg 11/23/19 11:50 Sodium Bicarbonate FEEDTUBE PRN PRN For Clogged Feeding Tube Nutrition/Malnutrition Assess - Dietary Evaluation Nutrition/Malnutrition Findings: Nutrition Notes Start: 11/23/19 11:29 Freq: Status: Active Protocol: Document 03/07/20 12:40 LM (Rec: 03/07/20 12:48 LM [email or web address]) Nutrition Notes Initial or Follow up Reassessment Current Diagnosis Hypertension Other Pertinent Diagnosis Cardaic arrest, ETOH dependence, UTI Current Diet Jevity 1.2 at 60ml/hr Labs/Tests Reviewed Pertinent Medications Reviewed Height 5 ft 6 in Weight 46.7 kg [place] Body Weight (kg) 59.09 BMI 16.6 Subjective/Other Information Jevity running at goal and pt is tolerating. Percent of energy/protein needs met: 97%/100% Burn Absent Trauma Absent GI Symptoms None Current % PO Negligible Interpretation of Weight Loss (severe) >2% in 1 week Muscle Mass Mild Depletion (non-severe) #2 Nutrition Diagnosis Malnutrition Diagnosis Progress(for reassessment Improved documentation) #1 Nutrition Diagnosis Inadequate oral intake Diagnosis Progress(for reassessment Continues documentation) Is patient on ventilator? No Is Patient Ambulatory and/or Out of Bed No REE-([place]-confined to bed) 1305.120 Kcal/Kg value to use for calculation 38 Approximate Energy Requirements Using 1775 kcal/Kg Calculation Used for Recommendations Kcal/kg Additional Notes Protein: 60-75g (1.2-1.5g/kg) Fluid: 1 ml/kcal Nutrition Intervention Change Diet Order: Continue TF Nutrition Support: Jevity 1.2 at 60ml/hr Flush 100ml q4h Kcal 1,728 Protein (gm) 80 Fluid (mL) 1,162 Goal #1 TF tolerance Goal #2 Meet at least 80% of energy and protein needs via TF Goal #3 Wt gain/maintenacne Anticipated Discharge Needs: TF Follow-Up By: 03/13/20 Additional Comments F/U for TF tolerance
[2020-03-11] MEDS: GLYCOPYRROLATE 1 MG TAB PO SCH ×3 (09:38→22:15)
[2020-03-11] MEDS: MIRTAZAPINE 30 MG TAB PO SCH (09:38)
[2020-03-11] MEDS: hydrOXYzine PAMOATE 25 MG CAP PO SCH ×2 (09:39→22:15)
[2020-03-11] MEDS: SERTRALINE 50 MG TAB PO SCH (09:42)
[2020-03-11] MEDS: levETIRAcetam 500 MG/5 ML ORAL LIQD PO SCH ×2 (09:46→22:16)
[2020-03-11] MEDS: QUEtiapine 100 MG TAB FEEDTUBE SCH ×2 (09:46→22:14)
[2020-03-11] MEDS: METOPROLOL TARTRATE 25 MG TAB PO SCH ×2 (09:46→22:19)
[2020-03-11] MEDS: LANSOPRAZOLE 30 MG SOLUTAB FEEDTUBE SCH (09:46)
[2020-03-11] MEDS: AMOXICILLIN/K CLAV 875/125MG TAB PO SCH ×2 (09:46→22:15)
[2020-03-11] MEDS: NICOTINE 21 MG/24 HR PATCH TD SCH (09:47)
[2020-03-11] MEDS: ENOXAPARIN 40 MG/0.4 ML INJ SUB-Q SCH (22:16)
[2020-03-12] MEDS: LEVALBUTEROL 0.63 MG/3 ML NEBU IH SCH ×5 (01:36→21:21)
[2020-03-12 05:11] LABS: Hematocrit 34.2 % (30.3-42.9); Hemoglobin 11.5 gm/dl (10.1-14.3); Mean Corpuscular HGB Conc 34 % (30-34); Mean Corpuscular Volume 88 fl (79-97); Platelet Count 625 K/mm3 (140-440); Red Cell Distribution Width 14.4 % (13.2-15.2)
[2020-03-12 05:23] LABS: BUN/Creatinine Ratio 49; Blood Urea Nitrogen 34 mg/dL (7-17); Calcium 10.7 mg/dL (8.4-10.2); Hemolysis Index 9
[2020-03-12] MEDS: dexAMETHasone 4 MG/ML VIAL IV SCH ×4 (06:42→23:36)
[2020-03-12] MEDS: ALPRAZolam 1 MG TAB PO PRN ×2 (06:42→17:54)
[2020-03-12] MEDS: ACETYLCYSTEINE 20% 200 MG/1 ML *FOR INHALATION USE INHALATION SCH ×2 (07:45→21:21)
[2020-03-12] MEDS ORDERED: SODIUM CHLORIDE 0.9% 1000 ML 1,000 ML IV ONE (08:45)
--- NOTE | 2020-03-12 08:46 | Progress Note ---
Assessment and Plan Assessment and plan: 54-year-old female with a past medical history of Hypertension, Depression, Tobacco use Disorder, Alcohol use Disorder as confirmed by Daughter and pt's mother presents to the hospital status post cardiac arrest at home. EMS found pt in [facility]. They were unable to intubate patient with a ET tube because she was clenching down therefore Joe airway placed. Per the ED physician who evaluated pt, Patient presented with a pulse, intermittent respirations, and bagging support via Joe airway with O2 sat of 100%. Accu-Chek of 71 obtained by EMS. She was intubated in the ER and called for admission. Following admission patient was diagnosed with anoxic brain injury, sepsis with MRSA bacteremia and MSSA pneumonia, alcoholic liver disease. Family member initially wished for full code then changed to DNR, patient treated with IV antibiotics for sepsis, status post trach and PEG on 12/13/19. Weaned off from the vent and put on T- piece. Patient is uninsured, waiting for placement, guarded prognosis. 03/07: Returning to service no acute changes are noted. Continue current management while awaiting placement. Intermittent labs. Base of neck also around tracheostomy tube preventing downgrading. Continue appropriate wound care. 03/08: Plan of care unchanged continues on aerosol trach collar 28% of oxygen. Continue wound care management placement still pending status decision. 03/09: Continue current treatment plan. Continue aspiration precaution 03/10: Continue current management, Restraints as patient still pulling, awaiting placement 03/11: Continue supportive care, intermittent suctioning and pulmonary toilet. awaiting placement. 03/12: Continue supportive care, Give a bolus of fluids due to Hypercalcemia, Monitor Hyperkalemia with labs in am, No arrhythmia. Patient vomiting, concern for aspiration, Chest xray ordered and no active disease noted. Keep HOB >45% / Anoxic brain injury: suspected CT head: No acute abnormality. EEG ordered showed Generalized slowing. No seizures or epileptiform activity. -Patient now opening her eyes, can speak and able to follow command -As needed haldol for agitation /Acute Respiratory failure -due to MSSA PNA -s/p intubation, s/p trach and PEG on 12/12 with mechanical ventilation, now on T-piece - CTA was done and negative for PE, - Echo quality is poor, showed diastolic dysfunction - continue weaning as tolerated -Continue appropriate and adequate tracheostomy care /Tracheostomy site ulceration -Continue appropriate wound management try to keep area dry. /Anemia, microcytic - Status post 3 units PRBC transfusion, H&H low stable /Acute metabolic encephalopathy/toxic encephalopathy due to the above - cont supportive care /Hyperammonemia - likely from liver disease related to EtOH abuse - Patient had elevated ammonia level and treated with lactulose /Metabolic Acidosis -Alcohol ketoacidosis vs hypoprofusion -Continue to monitor /ELevated LFTs, stable now - due to ischemic hepatitis. /Leucocytosis with sepsis - Source MRSA bacteremia and MSSA pneumonia. UA showed pyuria. RUQ US showed no ascites. - Repeat TTE negative for vegetation. Completed 7 days of Ceftriaxone on 11/29/2019. -Treated with Abx vancomycin 1 gm IV q 12 hour total 2 week till 12/30/2019 /Severe protein calorie malnutrition Dietitian consult to assist in management. /MSSA pneumonia: Status post vancomycin till 12/30/2019 /Alcohol use Disorder - given ongoing Alcohol use almost daily, s/p IV Thiamine - monitor /Severe hypokalemia -Repleted /Seizure disorder: treat with Keppra /H. Influenzae, tracheobronchitis, treated with abx /Moderate to severe fecal impaction - will add stool softner DNR CODE STATUS Disposition: prognosis guarded. Family okay for DNR, PT recommended subacute rehab, discharge pending on placement. negative for COVID 19 History Interval history: Patient seen and examined no clinical change at this time continues on ATC at 28% off oxygen. Admits agitated this morning Hospitalist Physical - Physical exam Narrative exam: General appearance: Present: Appears older than stated age tries to talk. Intermittent agitation - EENT Eyes: no scleral icterus, no conjunctival injection, pupil not reactive ENT: clear oral mucosa, dentition normal, no oropharyngeal erythema Ears: bilateral: normal - Neck Neck: trach on place with mild ulceration at the base. - Respiratory Respiratory effort: other (on T-piece) Respiratory: bilateral: rales - Cardiovascular Rhythm: regular Heart Sounds: Present: S1 & S2. Absent: gallop, rub Extremities: pulses intact, No edema, normal color - Gastrointestinal General gastrointestinal: Present: soft, non-tender, non-distended, normal bowel sounds - Integumentary Integumentary: clear, warm, dry - Musculoskeletal Musculoskeletal: No joint swelling or tenderness - Neurologic Neurologic: other (2+ reflexes throughout). respond to commend and nods head. generalized weakness, verbal - Psychiatric Psychiatric: co-operative - Constitutional Vitals: Temp Pulse Resp BP Pulse Ox 98.2 F 92 H 18 148/51 96 03/12/20 03:48 03/12/20 03:49 03/12/20 03:48 03/12/20 03:48 03/12/20 03:49 General appearance: Present: mild distress, cachectic, disheveled, other (Noncommunicative) HEART Score - HEART Score Troponin: Troponin T < 0.010 ng/mL (0.00-0.029) 11/22/19 23:27 Results - Labs CBC & Chem 7: 03/12/20 04:53 03/12/20 04:53 Labs: Laboratory Last Values WBC 9.1 K/mm3 (4.5-11.0) 03/12/20 04:53 RBC 3.90 M/mm3 (3.65-5.03) 03/12/20 04:53 Hgb 11.5 gm/dl (10.1-14.3) 03/12/20 04:53 Hct 34.2 % (30.3-42.9) 03/12/20 04:53 MCV 88 fl (79-97) 03/12/20 04:53 MCH 29 pg (28-32) 03/12/20 04:53 MCHC 34 % (30-34) 03/12/20 04:53 RDW 14.4 % (13.2-15.2) 03/12/20 04:53 Plt Count 625 K/mm3 (140-440) H 03/12/20 04:53 Lymph % (Auto) 27.8 % (13.4-35.0) 03/06/20 03:37 [place] % (Auto) 9.1 % (0.0-7.3) H 03/06/20 03:37 Eos % (Auto) 2.8 % (0.0-4.3) 03/06/20 03:37 Baso % (Auto) 0.7 % (0.0-1.8) 03/06/20 03:37 Lymph # 2.2 K/mm3 (1.2-5.4) 03/06/20 03:37 [place] # 0.7 K/mm3 (0.0-0.8) 03/06/20 03:37 Eos # 0.2 K/mm3 (0.0-0.4) 03/06/20 03:37 Baso # 0.1 K/mm3 (0.0-0.1) 03/06/20 03:37 Add Manual Diff Complete 12/25/19 03:47 Total Counted 200 12/25/19 03:47 Seg Neutrophils % 59.6 % (40.0-70.0) 03/06/20 03:37 Seg Neuts % (Manual) 97.5 % (40.0-70.0) H 12/25/19 03:47 Band Neutrophils % 0 % 12/25/19 03:47 Lymphocytes % (Manual) 1.0 % (13.4-35.0) L 12/25/19 03:47 Reactive Lymphs % (Man) 0 % 12/25/19 03:47 Monocytes % (Manual) 1.5 % (0.0-7.3) 12/25/19 03:47 Eosinophils % (Manual) 0 % (0.0-4.3) 12/25/19 03:47 Basophils % (Manual) 0 % (0.0-1.8) 12/25/19 03:47 Metamyelocytes % 0 % 12/25/19 03:47 Myelocytes % 0 % 12/25/19 03:47 Promyelocytes % 0 % 12/25/19 03:47 Blast Cells % 0 % 12/25/19 03:47 Nucleated RBC % Not Reportable 12/25/19 03:47 Seg Neutrophils # 4.8 K/mm3 (1.8-7.7) 03/06/20 03:37 Seg Neutrophils # Man 35.3 K/mm3 (1.8-7.7) H 12/25/19 03:47 Band Neutrophils # 0.0 K/mm3 12/25/19 03:47 Lymphocytes # (Manual) 0.4 K/mm3 (1.2-5.4) L 12/25/19 03:47 Abs React Lymphs (Man) 0.0 K/mm3 12/25/19 03:47 Monocytes # (Manual) 0.5 K/mm3 (0.0-0.8) 12/25/19 03:47 Eosinophils # (Manual) 0.0 K/mm3 (0.0-0.4) 12/25/19 03:47 Basophils # (Manual) 0.0 K/mm3 (0.0-0.1) 12/25/19 03:47 Metamyelocytes # 0.0 K/mm3 12/25/19 03:47 Myelocytes # 0.0 K/mm3 12/25/19 03:47 Promyelocytes # 0.0 K/mm3 12/25/19 03:47 Blast Cells # 0.0 K/mm3 12/25/19 03:47 Pathologist Review 12/13/19 07:48 WBC Morphology Not Reportable 12/25/19 03:47 Hypersegmented Neuts Not Reportable 12/25/19 03:47 Hyposegmented Neuts Not Reportable 12/25/19 03:47 Hypogranular Neuts Not Reportable 12/25/19 03:47 Smudge Cells Not Reportable 12/25/19 03:47 Toxic Granulation Not Reportable 12/25/19 03:47 Toxic Vacuolation Not Reportable 12/25/19 03:47 Dohle Bodies Not Reportable 12/25/19 03:47 Pelger-Huet Anomaly Not Reportable 12/25/19 03:47 Dominique Rods Not Reportable 12/25/19 03:47 Platelet Estimate Consistent w auto 12/25/19 03:47 Clumped Platelets Not Reportable 12/25/19 03:47 Plt Clumps, EDTA Not Reportable 12/25/19 03:47 Large Platelets Not Reportable 12/25/19 03:47 Giant Platelets Not Reportable 12/25/19 03:47 Platelet Satelliting Not Reportable 12/25/19 03:47 Plt Morphology Comment Not Reportable 12/25/19 03:47 RBC Morphology Not Reportable 12/25/19 03:47 Dimorphic RBCs Not Reportable 12/25/19 03:47 Polychromasia Not Reportable 12/25/19 03:47 Hypochromasia Not Reportable 12/25/19 03:47 Poikilocytosis Not Reportable 12/25/19 03:47 Anisocytosis 1+ 12/25/19 03:47 Microcytosis Not Reportable 12/25/19 03:47 Macrocytosis Not Reportable 12/25/19 03:47 Spherocytes Not Reportable 12/25/19 03:47 Pappenheimer Bodies Not Reportable 12/25/19 03:47 Sickle Cells Not Reportable 12/25/19 03:47 Target Cells Not Reportable 12/25/19 03:47 Tear Drop Cells Not Reportable 12/25/19 03:47 Ovalocytes Not Reportable 12/25/19 03:47 Helmet Cells Not Reportable 12/25/19 03:47 Rfias-Bingen Bodies Not Reportable 12/25/19 03:47 [place] Rings Not Reportable 12/25/19 03:47 [place] Cells Not Reportable 12/25/19 03:47 Bite Cells Not Reportable 12/25/19 03:47 Crenated Cell Not Reportable 12/25/19 03:47 Elliptocytes Not Reportable 12/25/19 03:47 Acanthocytes (Spur) Not Reportable 12/25/19 03:47 Rouleaux Not Reportable 12/25/19 03:47 Hemoglobin C Crystals Not Reportable 12/25/19 03:47 Schistocytes Not Reportable 12/25/19 03:47 Malaria parasites Not Reportable 12/25/19 03:47 Gregg Bodies Not Reportable 12/25/19 03:47 Hem Pathologist Commnt No 12/25/19 03:47 PT 17.0 Sec. (12.2-14.9) H 11/23/19 03:47 INR 1.36 (0.87-1.13) H 11/23/19 03:47 APTT 128.2 Sec. (24.2-36.6) H* 11/23/19 03:47 Heparin Anti-Xa Level 0.31 U.I./ml (0.3-0.7) 11/23/19 09:03 ABG pH 7.433 pH Units (7.350-7.450) 03/08/20 13:25 ABG pCO2 40.2 mm Hg 03/08/20 13:25 ABG pO2 71.1 mm Hg (80.0-90.0) L 03/08/20 13:25 ABG HCO3 26.2 mmol/L (20.0-26.0) H 03/08/20 13:25 ABG O2 Saturation 97.0 % (95.0-99.0) 03/08/20 13:25 ABG O2 Content 11.0 (0.0-44) 03/08/20 13:25 ABG Base Excess 1.8 mmol/L (-2.0-3.0) 03/08/20 13:25 ABG Hemoglobin 8.2 gm/dl (12.0-16.0) L 03/08/20 13:25 ABG Carboxyhemoglobin 1.7 % (0.0-5.0) 03/08/20 13:25 ABG Methemoglobin 0.5 % (0.0-1.5) 03/08/20 13:25 Oxyhemoglobin 94.8 % (95.0-99.0) L 03/08/20 13:25 FiO2 21 % 03/08/20 13:25 Sodium 137 mmol/L (137-145) 03/12/20 04:53 Potassium 5.3 mmol/L (3.6-5.0) H 03/12/20 04:53 Chloride 100.9 mmol/L (98-107) 03/12/20 04:53 Carbon Dioxide 23 mmol/L (22-30) 03/12/20 04:53 Anion Gap 18 mmol/L 03/12/20 04:53 BUN 34 mg/dL (7-17) H 03/12/20 04:53 Creatinine 0.7 mg/dL (0.7-1.2) 03/12/20 04:53 Estimated GFR > 60 ml/min 03/12/20 04:53 BUN/Creatinine Ratio 49 % 03/12/20 04:53 Glucose 159 mg/dL (65-100) H 03/12/20 04:53 POC Glucose 149 (70-105) H 03/12/20 06:26 Lactic Acid 1.80 mmol/L (0.7-2.0) 11/25/19 05:05 Calcium 10.7 mg/dL (8.4-10.2) H 03/12/20 04:53 Ionized Calcium 4.5 mg/dL (4.8-5.6) L 11/23/19 06:32 Phosphorus 4.20 mg/dL (2.5-4.5) D 11/28/19 08:59 Magnesium 1.90 mg/dL (1.7-2.3) 02/28/20 03:40 Total Bilirubin 0.40 mg/dL (0.1-1.2) 12/13/19 07:48 AST 27 units/L (5-40) 12/13/19 07:48 ALT 26 units/L (7-56) 12/13/19 07:48 Alkaline Phosphatase 316 units/L (35-129) H 12/13/19 07:48 Ammonia 42.0 umol/L (25-60) 11/29/19 13:41 Total Creatine Kinase 139 units/L (30-135) H 11/22/19 23:27 CK-MB (CK-2) 8.3 ng/mL (0.0-4.0) H 11/22/19 23:27 CK-MB (CK-2) Rel Index 5.9 (0-4) H 11/22/19 23:27 Troponin T < 0.010 ng/mL (0.00-0.029) 11/22/19 23:27 Total Protein 6.8 g/dL (6.3-8.2) 12/13/19 07:48 Albumin 2.4 g/dL (3.9-5) L 12/13/19 07:48 Albumin/Globulin Ratio 0.5 % 12/13/19 07:48 Lipase 18 units/L (13-60) 11/23/19 00:34 Procalcitonin 1.09 ng/mL (<0.15) 11/23/19 04:53 TSH 1.010 mlU/mL (0.270-4.200) 02/12/20 07:36 Free T4 1.08 ng/dL (0.76-1.46) 02/12/20 07:36 Urine Color Yellow (Yellow) 12/16/19 Unknown Urine Turbidity Slightly-cloudy (Clear) 12/16/19 Unknown Urine pH 5.0 (5.0-7.0) 12/16/19 Unknown Ur Specific [place] 1.018 (1.003-1.030) 12/16/19 Unknown Urine Protein 30 mg/dl mg/dL (Negative) 12/16/19 Unknown Urine Glucose (UA) Neg mg/dL (Negative) 12/16/19 Unknown Urine Ketones Neg mg/dL (Negative) 12/16/19 Unknown Urine Blood Sm (Negative) 12/16/19 Unknown Urine Nitrite Neg (Negative) 12/16/19 Unknown Urine Bilirubin Neg (Negative) 12/16/19 Unknown Urine Urobilinogen < 2.0 mg/dL (<2.0) 12/16/19 Unknown Ur Leukocyte Esterase Neg (Negative) 12/16/19 Unknown Urine WBC (Auto) 6.0 /HPF (0.0-6.0) 12/16/19 Unknown Urine RBC (Auto) 9.0 /HPF (0.0-6.0) 12/16/19 Unknown U Epithel Cells (Auto) < 1.0 /HPF (0-13.0) 12/16/19 Unknown Urine Bacteria (Auto) 2+ /HPF (Negative) 11/22/19 23:17 Hyaline Casts 3 /LPF 12/16/19 Unknown Granular Casts 3 /LPF 12/16/19 Unknown Urine Mucus Few /HPF 12/16/19 Unknown Vancomycin Trough 33.8 ug/mL (5.0-20.0) H 12/21/19 08:56 Random Vancomycin 16.2 ug/mL (0-40.0) 12/24/19 04:31 Salicylates < 0.3 mg/dL (2.8-20.0) L 11/22/19 23:27 Urine Opiates Screen Presumptive negative 11/22/19 23:17 Urine Methadone Screen Presumptive negative 11/22/19 23:17 Acetaminophen < 5.0 ug/mL (10.0-30.0) L 11/22/19 23:27 Ur Barbiturates Screen Presumptive negative 11/22/19 23:17 Ur Phencyclidine Scrn Presumptive negative 11/22/19 23:17 Ur Amphetamines Screen Presumptive negative 11/22/19 23:17 U Benzodiazepines Scrn Presumptive negative 11/22/19 23:17 Urine Cocaine Screen Presumptive negative 11/22/19 23:17 U Marijuana (THC) Screen Presumptive negative 11/22/19 23:17 Drugs of Abuse Note Disclamer 11/22/19 23:17 Plasma/Serum Alcohol 0.08 % (0-0.07) H 11/22/19 23:27 Coronavirus (PCR) Negative (Negative) 02/05/20 07:50 Hepatitis A IgM Ab Non-reactive (NonReactive) 11/23/19 01:19 Hep Bs Antigen Non-reactive (Negative) 11/23/19 01:19 Hep B Core IgM Ab Non-reactive (NonReactive) 11/23/19 01:19 Hepatitis C Antibody Non-reactive (NonReactive) 11/23/19 01:19 Blood Type O POSITIVE 12/21/19 14:54 Antibody Screen Negative 12/21/19 14:54 Crossmatch See Detail 12/21/19 14:54 - Diagnostic Impressions Diagnostic Impressions: Echocardiogram 11/23/19 03:58 Transthoracic Echocardiogram Indication: Cardiac arrest BP: 131/89 HR: 115 Conclusions *The study quality is technically difficult. *Global left ventricular wall motion and contractility are within normal limits. *The estimated ejection fraction is 55-60%. *Abnormal left ventricular diastolic filling is observed, consistent with impaired relaxation. *There is no pericardial effusion. Findings Procedure Info: The study quality is technically difficult. The study was technically limited due to the patient's inability to lay in the left lateral decubitus position. Left Ventricle: The left ventricular chamber size is normal. There is no left ventricular hypertrophy. Global left ventricular wall motion and contractility are within normal limits. Global left ventricular systolic function is normal. The estimated ejection fraction is 55-60%. Abnormal left ventricular diastolic filling is observed, consistent with impaired relaxation. Left Atrium: The left atrial chamber size is normal. Aortic Valve: The aortic valve leaflets are mildly thickened. Mitral Valve: The mitral valve leaflets are mildly thickened. There is no evidence of mitral regurgitation. Tricuspid Valve: The tricuspid valve leaflets are normal. There is trace tricuspid regurgitation. The right ventricular systolic pressure is calculated at 33 mmHg. Pulmonic Valve: The pulmonic valve appears normal. Pericardium: The pericardium appears normal. There is no pericardial effusion. Aorta: The aorta appears normal. Venous: The inferior vena cava appears normal in size. Measurements Chambers 2D Name Value Normal Range IVSd (2D) 0.94 cm (0.6 - 1.1) LVPWd (2D) 0.81 cm (0.6 - 1.1) LVIDd (2D) 3.6 cm (3.7 - 5.6) LVIDs (2D) 2.27 cm (2 - 3.8) LV FS (2D) 36.93 % - EF Teichholz (2D) 67.76 % - Ao root diameter (2D) 3.03 cm (2 - 3.7) Volumes/Mass Name Value Normal Range LA ESV SP 4CH (A/L) 16.89 ml - LA ESV SP 4CH (MOD) 15.52 ml - Diastolic/Systolic Function Name Value Normal Range MV E-wave Vmax 0.55 m/sec - MV deceleration time 200.89 msec - MV A-wave Vmax 0.68 m/sec - MV E:A ratio 0.82 ratio - Aortic Valve Name Value Normal Range AV Vmax 1.1 m/sec - AV VTI 15.9 cm - AV peak gradient 4.86 mmHg - AV mean gradient 2.59 mmHg - LVOT diameter 2 cm - LVOT Vmax 1.03 m/sec - LVOT VTI 15.87 cm - LVOT peak gradient 4.24 mmHg - LVOT mean gradient 2.41 mmHg - SV LVOT 49.77 ml - JOSÉ MIGUEL (continuity Vmax) 2.93 cm2 - JOSÉ MIGUEL (continuity VTI) 3.13 cm2 - Tricuspid Valve Name Value Normal Range TR Vmax 2.74 m/sec - TR peak gradient 303 mmHg - RAP 3 mmHg - RVSP 33 mmHg - IVC diameter 1.77 cm (1.2 - 2.3) Pulmonic Valve/Qp:Qs Name Value Normal Range PV Vmax 0.77 m/sec - PV peak gradient 2.4 mmHg - PV acceleration time 114.18 msec - Echocardiogram Limited Views 12/17/19 14:53 Transthoracic Echocardiogram Indication: R/O Vegetations BP: 144/83 HR: 133 Conclusions *Global left ventricular systolic function is mildly decreased. *The estimated ejection fraction is 45-50%. *A trivial pericardial effusion is visualized. Findings Left Ventricle: The left ventricular chamber size is normal. Global left ventricular systolic function is mildly decreased. The estimated ejection fraction is 45-50%. Left Atrium: The left atrial chamber size is normal. Right Ventricle: The right ventricular cavity size is normal. Right Atrium: The right atrial cavity size is normal. Aortic Valve: The aortic valve is not well visualized. There is no evidence of aortic regurgitation. Mitral Valve: The mitral valve leaflets are mildly thickened. There is trace of mitral regurgitation. Tricuspid Valve: The tricuspid valve leaflets are mildly thickened. There is trace tricuspid regurgitation. The right ventricular systolic pressure is calculated at 29 mmHg. Pulmonic Valve: The pulmonic valve is not well visualized. There is no evidence of pulmonic regurgitation. Pericardium: A trivial pericardial effusion is visualized. Aorta: There is no dilatation of the ascending aorta. There is no dilatation of the aortic root. Venous: The inferior vena cava appears normal in size. There is a greater than 50% respiratory change in the inferior vena cava dimension. Measurements Chambers 2D Name Value Normal Range IVSd (2D) 0.83 cm (0.6 - 1.1) LVPWd (2D) 0.98 cm (0.6 - 1.1) LVIDd (2D) 3.71 cm (3.7 - 5.6) LVIDs (2D) 2.93 cm (2 - 3.8) LV FS (2D) 21.12 % - EF Teichholz (2D) 43.71 % - Ao root diameter (2D) 3.02 cm (2 - 3.7) Volumes/Mass Name Value Normal Range LA ESV SP 4CH (A/L) 36.8 ml - LA ESV SP 2CH (A/L) 45.89 ml - LA ESV BP (A/L) 42.35 ml - LA ESV BP (A/L) index 26.63 ml/m2 - LA ESV SP 4CH (MOD) 34.42 ml - LA ESV SP 2CH (MOD) 44.21 ml - LA ESV BP (MOD) 39.82 ml - LA ESV BP (MOD) index 25.05 ml/m2 - Aortic Valve Name Value Normal Range LVOT diameter 1.63 cm - Tricuspid Valve Name Value Normal Range TR Vmax 2.56 m/sec - TR peak gradient 26 mmHg - RAP 3 mmHg - RVSP 29 mmHg - IVC diameter 1.83 cm (1.2 - 2.3) [place]/IV: Voiding Method Incontinent IV Catheter Type [Forearm] Peripheral IV IV Catheter Type [Left Forearm INT / Saline Lock ] IV Catheter Type [Right INT / Saline Lock Antecubital] IV Catheter Type [Right Hand] Peripheral IV IV Catheter Type [Right Wrist] Peripheral IV IV Catheter Type [Left Wrist] Peripheral IV IV Catheter Type [Left Peripheral IV Antecubital] IV Catheter Type [Right INT / Saline Lock Forearm] IV Catheter Type [Left Hand] INT / Saline Lock Active Medications - Current Medications Current Medications: Generic Name Dose Route Start Last Admin Trade Name Freq PRN Reason Stop Dose Admin Acetaminophen 650 mg 12/06/19 10:25 03/09/20 21:22 Tylenol FEEDTUBE 650 mg Q6H PRN Administration TEMP >/=100.3 Acetylcysteine 200 mg 02/16/20 20:00 03/12/20 07:45 Mucomyst Inhalation INHALATION 200 mg Q12HRT LUCHO Administration Alprazolam 1 mg 02/21/20 18:24 03/12/20 06:42 Xanax PO 1 mg Q8H PRN Administration Anxiety Amoxicillin/Clavulanate Potassium 1 each 03/09/20 14:00 03/11/20 22:15 Augmentin 875 Mg PO 03/15/20 22:01 1 each Q12HR LUCHO Administration Lipase/Protease/Amylase 1 each 11/23/19 11:[address] 10,500 Unit FEEDTUBE PRN PRN Use w/ sod bicarb for FT Bisacodyl 10 mg 02/06/20 13:[address] QDAY PRN Constipation unrelieved by MOM Dexamethasone 8 mg 03/09/20 14:00 03/12/20 06:42 Decadron IV 03/14/20 23:59 8 mg Q6HR LUCHO Administration Docusate Sodium 100 mg 02/18/20 22:00 03/11/20 22:15 Colace FEEDTUBE 100 mg BID LUCHO Administration Enoxaparin Sodium 40 mg 03/07/20 22:00 03/11/20 22:16 Enoxaparin SUB-Q 40 mg QDAY@2200 LUCHO Administration Glycopyrrolate 2 mg 12/31/19 20:00 03/11/20 22:15 Robinul PO 2 mg TID LUCHO Administration Haloperidol Lactate 5 mg 03/05/20 09:22 03/07/20 17:13 Haldol IM 5 mg Q6H PRN Administration Agitation Hydralazine HCl 10 mg 11/24/19 00:45 03/03/20 05:57 Apresoline IV 10 mg Q6H PRN Administration SBP > 160 Hydroxyzine Pamoate 25 mg 12/06/19 10:00 03/11/20 22:15 Vistaril PO 25 mg BID LUCHO Administration Sodium Chloride 1,000 mls @ 999 mls/hr 03/12/20 08:45 Nacl 0.9% 1000 Ml IV 03/12/20 09:45 BOLUS ONE Lansoprazole 30 mg 11/27/19 10:00 03/11/20 09:46 Prevacid Solutab FEEDTUBE 30 mg QDAY LUCHO Administration Levalbuterol HCl 0.63 mg 02/17/20 00:00 03/12/20 07:45 Xopenex IH 0.63 mg Q8HRT LUCHO Administration Levetiracetam 500 mg 11/29/19 10:00 03/11/20 22:16 Keppra PO 500 mg BID LUCHO Administration Metoprolol Tartrate 12.5 mg 02/23/20 22:00 03/11/20 22:19 Metoprolol PO 12.5 mg BID LUCHO Administration Mirtazapine 30 mg 12/06/19 10:00 03/11/20 09:38 Remeron PO 30 mg DAILY LUCHO Administration Nicotine 21 mg 02/16/20 13:00 03/11/20 09:47 Habitrol TD 21 mg QDAY LUCHO Administration Ondansetron HCl 4 mg 12/10/19 07:53 02/25/20 02:51 Zofran IV 4 mg Q4H PRN Administration Nausea And Vomiting Polyethylene Glycol 17 gm 02/06/20 13:57 Miralax 3350 PO QDAY PRN Constipation Quetiapine Fumarate 100 mg 03/06/20 10:00 03/11/20 22:14 Seroquel FEEDTUBE 100 mg BID LUCHO Administration Scopolamine 1 each 02/08/20 15:00 03/09/20 12:20 Transderm-Scop TD 1 each Q3D LUCHO Administration Sertraline HCl 25 mg 01/01/20 10:00 03/11/20 09:42 Zoloft PO 25 mg QDAY LUCHO Administration Simple Syrup 15 ml 11/23/19 11:50 Simple Syrup FEEDTUBE PRN PRN Hypoglycemia BG<70 Simple Syrup 30 ml 11/23/19 11:50 Simple Syrup FEEDTUBE PRN PRN Hypoglycemia Sodium Bicarbonate 325 mg 11/23/19 11:50 Sodium Bicarbonate FEEDTUBE PRN PRN For Clogged Feeding Tube Nutrition/Malnutrition Assess - Dietary Evaluation Nutrition/Malnutrition Findings: Nutrition Notes Start: 11/23/19 11:29 Freq: Status: Active Protocol: Document 03/07/20 12:40 LM (Rec: 03/07/20 12:48 LM [email or web address]) Nutrition Notes Initial or Follow up Reassessment Current Diagnosis Hypertension Other Pertinent Diagnosis Cardaic arrest, ETOH dependence, UTI Current Diet Jevity 1.2 at 60ml/hr Labs/Tests Reviewed Pertinent Medications Reviewed Height 5 ft 6 in Weight 46.7 kg [place] Body Weight (kg) 59.09 BMI 16.6 Subjective/Other Information Jevity running at goal and pt is tolerating. Percent of energy/protein needs met: 97%/100% Burn Absent Trauma Absent GI Symptoms None Current % PO Negligible Interpretation of Weight Loss (severe) >2% in 1 week Muscle Mass Mild Depletion (non-severe) #2 Nutrition Diagnosis Malnutrition Diagnosis Progress(for reassessment Improved documentation) #1 Nutrition Diagnosis Inadequate oral intake Diagnosis Progress(for reassessment Continues documentation) Is patient on ventilator? No Is Patient Ambulatory and/or Out of Bed No REE-([facility]-confined to bed) 1305.120 Kcal/Kg value to use for calculation 38 Approximate Energy Requirements Using 1775 kcal/Kg Calculation Used for Recommendations Kcal/kg Additional Notes Protein: 60-75g (1.2-1.5g/kg) Fluid: 1 ml/kcal Nutrition Intervention Change Diet Order: Continue TF Nutrition Support: Jevity 1.2 at 60ml/hr Flush 100ml q4h Kcal 1,728 Protein (gm) 80 Fluid (mL) 1,162 Goal #1 TF tolerance Goal #2 Meet at least 80% of energy and protein needs via TF Goal #3 Wt gain/maintenacne Anticipated Discharge Needs: TF Follow-Up By: 03/13/20 Additional Comments F/U for TF tolerance
[2020-03-12] MEDS: MIRTAZAPINE 30 MG TAB PO SCH (09:45)
[2020-03-12] MEDS: hydrOXYzine PAMOATE 25 MG CAP PO SCH ×2 (09:46→21:43)
[2020-03-12] MEDS: METOPROLOL TARTRATE 25 MG TAB PO SCH ×2 (09:46→21:44)
[2020-03-12] MEDS: levETIRAcetam 500 MG/5 ML ORAL LIQD PO SCH ×2 (09:46→21:44)
[2020-03-12] MEDS: AMOXICILLIN/K CLAV 875/125MG TAB PO SCH ×2 (09:46→21:44)
[2020-03-12] MEDS: QUEtiapine 100 MG TAB FEEDTUBE SCH ×2 (09:50→21:44)
[2020-03-12] MEDS: SERTRALINE 50 MG TAB PO SCH (09:50)
[2020-03-12] MEDS: LANSOPRAZOLE 30 MG SOLUTAB FEEDTUBE SCH (09:50)
[2020-03-12] MEDS: DOCUSATE SODIUM 100 MG/10 ML ORAL LIQD FEEDTUBE SCH ×2 (09:52→21:43)
[2020-03-12] MEDS: GLYCOPYRROLATE 1 MG TAB PO SCH ×3 (09:57→21:43)
[2020-03-12] MEDS: SCOPOLAMINE TRANSDERMAL PATCH 72 HR TD SCH (10:20)
[2020-03-12] MEDS: NICOTINE 21 MG/24 HR PATCH TD SCH (10:20)
--- NOTE | 2020-03-12 13:08 | XRay Report ---
CHEST 1 VIEW INDICATION / CLINICAL INFORMATION: resp failure, possible aspiration. COMPARISON: 03/08/2020 FINDINGS: SUPPORT DEVICES: Tracheostomy tube appears unchanged HEART / MEDIASTINUM: No significant abnormality. LUNGS / PLEURA: No significant pulmonary or pleural abnormality.. No pneumothorax. ADDITIONAL FINDINGS: No significant additional findings. IMPRESSION: 1. No acute findings. Signer Name: John Christine MD Signed: 03/12/2020 1:04 PM Workstation Name: [id number]
--- NOTE | 2020-03-12 13:29 | Progress Note ---
Assessment and Plan Patient Resting better to day.. On trach collar, FIO2 28% and o2 saturation running 96%.Patient S/P trach. Wound around trach tube. Recommend cleaning and tracheostomy care. Dressing applied.Recommend frequent respiratory suctioning. Continue bronchodilators.Patient afebrile and has no leukocytosis. Chest xray 03/08/20 reported no significant pulmonary or pleural abnormalities. Tracheostomy tube in place. ABGS: ABG pH 7.433 pH Units (7.350-7.450) 03/08/20 13:25 ABG pCO2 40.2 mm Hg 03/08/20 13:25 ABG pO2 71.1 mm Hg (80.0-90.0) L 03/08/20 13:25 ABG O2 Saturation 97.0 % (95.0-99.0) 03/08/20 13:25 on room air - Patient Problems (1) Acute respiratory failure Current Visit: Yes Status: Acute Qualifiers: Respiratory failure complication: hypoxia Qualified Code(s): J96.01 - Acute respiratory failure with hypoxia Plan to address problem: S/P Tracheostomy. On Trach collar, FIO2 28%. O2 saturation 96%. Recommend albuterol/atrovent aerosol treatments q 6 hours. Continue Mucomist. Respiratory suctioning. Trach care. Mobility protocol. (2) Alcohol abuse Current Visit: Yes Status: Acute Plan to address problem: Management as per primary care. (3) Cardiac arrest with successful resuscitation Current Visit: Yes Status: Acute Plan to address problem: Patient successfully resucitated. Alert, awake. On Trach collar, FIO2 28%, O2 saturation 96%. (4) Increased ammonia level Current Visit: Yes Status: Acute Plan to address problem: Management as per primary care. (5) Seizure disorder Current Visit: Yes Status: Acute Plan to address problem: Management as per primary care and neurology. (6) HTN (hypertension) Current Visit: No Status: Acute Plan to address problem: Management as per primary care. Subjective Date of service: 03/12/20 Principal diagnosis: Ac cardiopulmonary arrest; Ac hypoxemic resp failure; Acute encephalopathy Interval history: Patient resting better. On trach collar, FIO2 28% and o2 saturation running 96%.Patient S/P trach. Wound around trach tube. Recommend cleaning and tracheostomy care. Dressing applied.Recommend frequent respiratory suctioning. Continue bronchodilators.Patient afebrile and has no leukocytosis. Chest xray 03/08/20 reported no significant pulmonary or pleural abnormalities. Tracheostomy tube in place. ABGS: ABG pH 7.433 pH Units (7.350-7.450) 03/08/20 13:25 ABG pCO2 40.2 mm Hg 03/08/20 13:25 ABG pO2 71.1 mm Hg (80.0-90.0) L 03/08/20 13:25 ABG O2 Saturation 97.0 % (95.0-99.0) 03/08/20 13:25 on room air Objective Vital Signs - 12hr 03/12/20 03/12/20 03/12/20 03:48 03:49 08:00 Temperature 98.2 F Pulse Rate 92 H Pulse Rate [ 98 H Anterior Bilateral Throughout] Respiratory 18 Rate Respiratory 18 Rate [Anterior Bilateral Throughout] Blood Pressure 148/51 O2 Sat by Pulse 96 Oximetry O2 Sat by Pulse 98 Oximetry [ Assessment] 03/12/20 03/12/20 09:46 10:00 Temperature Pulse Rate 98 H Pulse Rate [ Anterior Bilateral Throughout] Respiratory Rate Respiratory Rate [Anterior Bilateral Throughout] Blood Pressure O2 Sat by Pulse 96 Oximetry O2 Sat by Pulse Oximetry [ Assessment] Constitutional: no acute distress, alert, agitated Eyes: non-icteric ENT: oropharynx moist, other (s/p trach) Neck: supple, no lymphadenopathy, no JVD Effort: normal Ascultation: Bilateral: diminished breath sounds, rhonchi Percussion: Bilateral: not dull Cardiovascular: regular rate and rhythm (tachycardia), other (S1,S2) Gastrointestinal: normoactive bowel sounds, soft, non-tender, non-distended Integumentary: normal Extremities: no cyanosis, no edema, pulses normal, no ischemia or petechiae Neurologic: normal mental status, non-focal exam, pupils equal and round Psychiatric: mood appropriate, affect normal, anxious, other (Agitated) CBC and BMP: 03/12/20 04:53 03/12/20 04:53 ABG, PT/INR, D-dimer: ABG ABG pH 7.433 pH Units (7.350-7.450) 03/08/20 13:25 ABG pCO2 40.2 mm Hg 03/08/20 13:25 ABG pO2 71.1 mm Hg (80.0-90.0) L 03/08/20 13:25 ABG O2 Saturation 97.0 % (95.0-99.0) 03/08/20 13:25 PT/INR, D-dimer PT 17.0 Sec. (12.2-14.9) H 11/23/19 03:47 INR 1.36 (0.87-1.13) H 11/23/19 03:47 Abnormal lab findings: Abnormal Labs 11/22/19 11/22/19 11/22/19 23:17 23:18 23:27 WBC 21.2 H RBC 3.59 L Hgb 9.8 L Hct MCH 27 L RDW 18.6 H Plt Count 454 H Lymph % (Auto) [place] % (Auto) [place] # Baso # Seg Neutrophils % Seg Neuts % (Manual) 86.0 H Lymphocytes % (Manual) 9.0 L Monocytes % (Manual) Seg Neutrophils # Seg Neutrophils # Man 18.2 H Lymphocytes # (Manual) Monocytes # (Manual) 1.1 H Eosinophils # (Manual) Basophils # (Manual) PT INR APTT ABG pH ABG pO2 ABG HCO3 ABG O2 Saturation ABG Base Excess ABG Hemoglobin Oxyhemoglobin Sodium Potassium Chloride Carbon Dioxide BUN Creatinine Glucose POC Glucose 53 L Lactic Acid Calcium Ionized Calcium Phosphorus Magnesium Total Bilirubin AST ALT Alkaline Phosphatase Ammonia Total Creatine Kinase CK-MB (CK-2) CK-MB (CK-2) Rel Index Total Protein Albumin Urine WBC (Auto) 40.0 H Vancomycin Trough Salicylates Acetaminophen Plasma/Serum Alcohol Crossmatch 11/22/19 11/22/19 11/22/19 23:27 23:27 23:27 WBC RBC Hgb Hct MCH RDW Plt Count Lymph % (Auto) [place] % (Auto) [place] # Baso # Seg Neutrophils % Seg Neuts % (Manual) Lymphocytes % (Manual) Monocytes % (Manual) Seg Neutrophils # Seg Neutrophils # Man Lymphocytes # (Manual) Monocytes # (Manual) Eosinophils # (Manual) Basophils # (Manual) PT INR APTT ABG pH ABG pO2 ABG HCO3 ABG O2 Saturation ABG Base Excess ABG Hemoglobin Oxyhemoglobin Sodium Potassium 2.4 L* Chloride 85.1 L Carbon Dioxide 19 L BUN Creatinine 0.5 L Glucose 261 H POC Glucose Lactic Acid Calcium Ionized Calcium Phosphorus Magnesium Total Bilirubin AST 609 H ALT 152 H Alkaline Phosphatase 160 H Ammonia 117.0 H Total Creatine Kinase 139 H CK-MB (CK-2) 8.3 H CK-MB (CK-2) Rel Index 5.9 H Total Protein Albumin 3.6 L Urine WBC (Auto) Vancomycin Trough Salicylates < 0.3 L Acetaminophen Plasma/Serum Alcohol Crossmatch 11/22/19 11/22/19 11/23/19 23:27 23:27 01:10 WBC RBC Hgb Hct MCH RDW Plt Count Lymph % (Auto) [place] % (Auto) [place] # Baso # Seg Neutrophils % Seg Neuts % (Manual) Lymphocytes % (Manual) Monocytes % (Manual) Seg Neutrophils # Seg Neutrophils # Man Lymphocytes # (Manual) Monocytes # (Manual) Eosinophils # (Manual) Basophils # (Manual) PT INR APTT ABG pH 7.273 L ABG pO2 209.7 H ABG HCO3 ABG O2 Saturation 99.2 H ABG Base Excess -3.9 L ABG Hemoglobin 10.6 L Oxyhemoglobin 93.9 L Sodium Potassium Chloride Carbon Dioxide BUN Creatinine Glucose POC Glucose Lactic Acid Calcium Ionized Calcium Phosphorus Magnesium Total Bilirubin AST ALT Alkaline Phosphatase Ammonia Total Creatine Kinase CK-MB (CK-2) CK-MB (CK-2) Rel Index Total Protein Albumin Urine WBC (Auto) Vancomycin Trough Salicylates Acetaminophen < 5.0 L Plasma/Serum Alcohol 0.08 H Crossmatch 11/23/19 11/23/19 11/23/19 01:19 01:19 03:47 WBC RBC Hgb Hct MCH RDW Plt Count Lymph % (Auto) [place] % (Auto) [place] # Baso # Seg Neutrophils % Seg Neuts % (Manual) Lymphocytes % (Manual) Monocytes % (Manual) Seg Neutrophils # Seg Neutrophils # Man Lymphocytes # (Manual) Monocytes # (Manual) Eosinophils # (Manual) Basophils # (Manual) PT 16.3 H INR 1.29 H APTT ABG pH ABG pO2 ABG HCO3 ABG O2 Saturation ABG Base Excess ABG Hemoglobin Oxyhemoglobin Sodium Potassium Chloride Carbon Dioxide BUN Creatinine Glucose POC Glucose Lactic Acid 2.10 H* 5.00 H* Calcium Ionized Calcium Phosphorus Magnesium Total Bilirubin AST ALT Alkaline Phosphatase Ammonia Total Creatine Kinase CK-MB (CK-2) CK-MB (CK-2) Rel Index Total Protein Albumin Urine WBC (Auto) Vancomycin Trough Salicylates Acetaminophen Plasma/Serum Alcohol Crossmatch 11/23/19 11/23/1911/22/20 03:47 03:47 04:53 WBC RBC Hgb 9.4 L Hct MCH RDW Plt Count Lymph % (Auto) [place] % (Auto) [place] # Baso # Seg Neutrophils % Seg Neuts % (Manual) Lymphocytes % (Manual) Monocytes % (Manual) Seg Neutrophils # Seg Neutrophils # Man Lymphocytes # (Manual) Monocytes # (Manual) Eosinophils # (Manual) Basophils # (Manual) PT 17.0 H INR 1.36 H APTT 128.2 H* ABG pH ABG pO2 ABG HCO3 ABG O2 Saturation ABG Base Excess ABG Hemoglobin Oxyhemoglobin Sodium Potassium Chloride Carbon Dioxide 18 L BUN Creatinine 0.5 L Glucose 105 H POC Glucose Lactic Acid Calcium 8.3 L Ionized Calcium Phosphorus 2.40 L Magnesium Total Bilirubin 1.30 H AST 761 H ALT 158 H Alkaline Phosphatase 143 H Ammonia Total Creatine Kinase CK-MB (CK-2) CK-MB (CK-2) Rel Index Total Protein Albumin 2.8 L Urine WBC (Auto) Vancomycin Trough Salicylates Acetaminophen Plasma/Serum Alcohol Crossmatch 11/23/19 11/23/19 11/23/19 05:12 06:32 06:32 WBC 16.8 H RBC 3.31 L Hgb 8.9 L Hct 28.7 L MCH 27 L RDW 18.6 H Plt Count Lymph % (Auto) [place] % (Auto) [place] # Baso # Seg Neutrophils % Seg Neuts % (Manual) 94.0 H Lymphocytes % (Manual) 1.0 L Monocytes % (Manual) Seg Neutrophils # Seg Neutrophils # Man 15.8 H Lymphocytes # (Manual) 0.2 L Monocytes # (Manual) Eosinophils # (Manual) Basophils # (Manual) PT INR APTT ABG pH ABG pO2 ABG HCO3 ABG O2 Saturation ABG Base Excess -3.2 L ABG Hemoglobin 9.0 L Oxyhemoglobin 93.6 L Sodium Potassium Chloride Carbon Dioxide BUN Creatinine Glucose POC Glucose Lactic Acid Calcium Ionized Calcium 4.5 L Phosphorus Magnesium Total Bilirubin AST ALT Alkaline Phosphatase Ammonia Total Creatine Kinase CK-MB (CK-2) CK-MB (CK-2) Rel Index Total Protein Albumin Urine WBC (Auto) Vancomycin Trough Salicylates Acetaminophen Plasma/Serum Alcohol Crossmatch 11/23/19 11/24/19 11/24/19 06:32 04:35 04:35 WBC RBC Hgb Hct MCH RDW Plt Count Lymph % (Auto) [place] % (Auto) [place] # Baso # Seg Neutrophils % Seg Neuts % (Manual) Lymphocytes % (Manual) Monocytes % (Manual) Seg Neutrophils # Seg Neutrophils # Man Lymphocytes # (Manual) Monocytes # (Manual) Eosinophils # (Manual) Basophils # (Manual) PT INR APTT ABG pH ABG pO2 ABG HCO3 ABG O2 Saturation ABG Base Excess ABG Hemoglobin Oxyhemoglobin Sodium Potassium Chloride Carbon Dioxide BUN Creatinine Glucose POC Glucose Lactic Acid 3.30 H* Calcium Ionized Calcium Phosphorus Magnesium 1.40 L Total Bilirubin AST ALT Alkaline Phosphatase Ammonia 98.0 H Total Creatine Kinase CK-MB (CK-2) CK-MB (CK-2) Rel Index Total Protein Albumin Urine WBC (Auto) Vancomycin Trough Salicylates Acetaminophen Plasma/Serum Alcohol Crossmatch 11/24/19 11/25/19 11/25/19 05:22 04:34 05:05 WBC 17.3 H RBC 2.88 L Hgb 7.8 L Hct 24.6 L MCH 27 L RDW 18.5 H Plt Count Lymph % (Auto) 7.7 L [place] % (Auto) 9.7 H [place] # 1.7 H Baso # Seg Neutrophils % 82.2 H Seg Neuts % (Manual) Lymphocytes % (Manual) Monocytes % (Manual) Seg Neutrophils # 14.2 H Seg Neutrophils # Man Lymphocytes # (Manual) Monocytes # (Manual) Eosinophils # (Manual) Basophils # (Manual) PT INR APTT ABG pH 7.475 H ABG pO2 ABG HCO3 29.4 H 32.3 H ABG O2 Saturation ABG Base Excess 5.4 H 6.9 H ABG Hemoglobin 9.0 L 10.6 L Oxyhemoglobin 94.3 L Sodium Potassium Chloride Carbon Dioxide BUN Creatinine Glucose POC Glucose Lactic Acid Calcium Ionized Calcium Phosphorus Magnesium Total Bilirubin AST ALT Alkaline Phosphatase Ammonia Total Creatine Kinase CK-MB (CK-2) CK-MB (CK-2) Rel Index Total Protein Albumin Urine WBC (Auto) Vancomycin Trough Salicylates Acetaminophen Plasma/Serum Alcohol Crossmatch 11/25/19 11/25/19 11/26/19 05:05 22:46 03:31 WBC RBC Hgb Hct MCH RDW Plt Count Lymph % (Auto) [place] % (Auto) [place] # Baso # Seg Neutrophils % Seg Neuts % (Manual) Lymphocytes % (Manual) Monocytes % (Manual) Seg Neutrophils # Seg Neutrophils # Man Lymphocytes # (Manual) Monocytes # (Manual) Eosinophils # (Manual) Basophils # (Manual) PT INR APTT ABG pH 7.459 H ABG pO2 ABG HCO3 34.2 H ABG O2 Saturation ABG Base Excess 9.4 H ABG Hemoglobin 7.6 L Oxyhemoglobin 94.8 L Sodium 152 H D 147 H Potassium 2.3 L* D 2.8 L* D Chloride 107.8 H Carbon Dioxide 31 H D 33 H BUN Creatinine 0.6 L 0.6 L Glucose 148 H 177 H POC Glucose Lactic Acid Calcium Ionized Calcium Phosphorus Magnesium Total Bilirubin AST 105 H ALT 71 H Alkaline Phosphatase 155 H Ammonia Total Creatine Kinase CK-MB (CK-2) CK-MB (CK-2) Rel Index Total Protein 5.2 L D Albumin 2.9 L Urine WBC (Auto) Vancomycin Trough Salicylates Acetaminophen Plasma/Serum Alcohol Crossmatch 11/26/19 11/26/19 11/27/19 08:24 08:24 04:20 WBC 12.0 H RBC 3.00 L Hgb 8.0 L 9.3 L Hct 25.9 L 29.7 L MCH 27 L RDW 18.5 H Plt Count Lymph % (Auto) [place] % (Auto) [place] # Baso # Seg Neutrophils % Seg Neuts % (Manual) 89.0 H Lymphocytes % (Manual) 4.0 L Monocytes % (Manual) Seg Neutrophils # Seg Neutrophils # Man 10.7 H Lymphocytes # (Manual) 0.5 L Monocytes # (Manual) Eosinophils # (Manual) Basophils # (Manual) PT INR APTT ABG pH ABG pO2 ABG HCO3 ABG O2 Saturation ABG Base Excess ABG Hemoglobin Oxyhemoglobin Sodium 146 H Potassium 3.4 L D Chloride Carbon Dioxide BUN Creatinine 0.5 L Glucose 165 H POC Glucose Lactic Acid Calcium Ionized Calcium Phosphorus Magnesium Total Bilirubin AST 57 H ALT Alkaline Phosphatase 166 H Ammonia Total Creatine Kinase CK-MB (CK-2) CK-MB (CK-2) Rel Index Total Protein Albumin 2.9 L Urine WBC (Auto) Vancomycin Trough Salicylates Acetaminophen Plasma/Serum Alcohol Crossmatch 11/27/19 11/27/19 11/27/19 04:28 04:28 04:42 WBC RBC Hgb Hct MCH RDW Plt Count Lymph % (Auto) [place] % (Auto) [place] # Baso # Seg Neutrophils % Seg Neuts % (Manual) Lymphocytes % (Manual) Monocytes % (Manual) Seg Neutrophils # Seg Neutrophils # Man Lymphocytes # (Manual) Monocytes # (Manual) Eosinophils # (Manual) Basophils # (Manual) PT INR APTT ABG pH 7.470 H ABG pO2 74.0 L ABG HCO3 33.8 H ABG O2 Saturation ABG Base Excess 9.1 H ABG Hemoglobin 8.7 L Oxyhemoglobin 94.7 L Sodium 146 H Potassium 2.9 L* Chloride Carbon Dioxide BUN 25 H Creatinine Glucose 213 H POC Glucose Lactic Acid Calcium Ionized Calcium Phosphorus 1.00 L Magnesium Total Bilirubin AST ALT Alkaline Phosphatase Ammonia Total Creatine Kinase CK-MB (CK-2) CK-MB (CK-2) Rel Index Total Protein Albumin Urine WBC (Auto) Vancomycin Trough Salicylates Acetaminophen Plasma/Serum Alcohol Crossmatch 11/27/19 11/27/19 11/27/19 05:37 12:20 15:46 WBC RBC Hgb Hct MCH RDW Plt Count Lymph % (Auto) [place] % (Auto) [place] # Baso # Seg Neutrophils % Seg Neuts % (Manual) Lymphocytes % (Manual) Monocytes % (Manual) Seg Neutrophils # Seg Neutrophils # Man Lymphocytes # (Manual) Monocytes # (Manual) Eosinophils # (Manual) Basophils # (Manual) PT INR APTT ABG pH ABG pO2 ABG HCO3 ABG O2 Saturation ABG Base Excess ABG Hemoglobin Oxyhemoglobin Sodium 146 H Potassium 3.5 L D Chloride Carbon Dioxide BUN 24 H Creatinine 0.6 L Glucose 187 H POC Glucose 117 H 220 H Lactic Acid Calcium Ionized Calcium Phosphorus Magnesium Total Bilirubin AST ALT Alkaline Phosphatase Ammonia Total Creatine Kinase CK-MB (CK-2) CK-MB (CK-2) Rel Index Total Protein Albumin Urine WBC (Auto) Vancomycin Trough Salicylates Acetaminophen Plasma/Serum Alcohol Crossmatch 11/27/19 11/28/19 11/28/19 17:28 05:00 05:02 WBC RBC Hgb Hct MCH RDW Plt Count Lymph % (Auto) [place] % (Auto) [place] # Baso # Seg Neutrophils % Seg Neuts % (Manual) Lymphocytes % (Manual) Monocytes % (Manual) Seg Neutrophils # Seg Neutrophils # Man Lymphocytes # (Manual) Monocytes # (Manual) Eosinophils # (Manual) Basophils # (Manual) PT INR APTT ABG pH ABG pO2 72.4 L ABG HCO3 33.6 H ABG O2 Saturation 94.1 L ABG Base Excess 7.3 H ABG Hemoglobin Oxyhemoglobin 91.8 L Sodium 146 H Potassium 3.3 L Chloride Carbon Dioxide BUN 25 H Creatinine 0.6 L Glucose 176 H POC Glucose 198 H Lactic Acid Calcium Ionized Calcium Phosphorus Magnesium Total Bilirubin AST ALT Alkaline Phosphatase Ammonia Total Creatine Kinase CK-MB (CK-2) CK-MB (CK-2) Rel Index Total Protein Albumin Urine WBC (Auto) Vancomycin Trough Salicylates Acetaminophen Plasma/Serum Alcohol Crossmatch 11/28/19 11/28/19 11/29/19 05:02 18:55 10:43 WBC 15.2 H 19.0 H RBC 3.06 L 3.01 L Hgb 8.3 L 8.3 L Hct 27.0 L 26.4 L MCH 27 L RDW 19.0 H 19.7 H Plt Count 479 H 611 H Lymph % (Auto) [place] % (Auto) [place] # Baso # Seg Neutrophils % Seg Neuts % (Manual) 92.0 H Lymphocytes % (Manual) 2.0 L Monocytes % (Manual) Seg Neutrophils # Seg Neutrophils # Man 14.0 H Lymphocytes # (Manual) 0.3 L Monocytes # (Manual) Eosinophils # (Manual) Basophils # (Manual) PT INR APTT ABG pH ABG pO2 ABG HCO3 ABG O2 Saturation ABG Base Excess ABG Hemoglobin Oxyhemoglobin Sodium Potassium Chloride Carbon Dioxide BUN Creatinine Glucose POC Glucose 138 H Lactic Acid Calcium Ionized Calcium Phosphorus Magnesium Total Bilirubin AST ALT Alkaline Phosphatase Ammonia Total Creatine Kinase CK-MB (CK-2) CK-MB (CK-2) Rel Index Total Protein Albumin Urine WBC (Auto) Vancomycin Trough Salicylates Acetaminophen Plasma/Serum Alcohol Crossmatch 11/29/19 11/29/19 11/29/19 10:43 12:27 19:25 WBC RBC Hgb Hct MCH RDW Plt Count Lymph % (Auto) [place] % (Auto) [place] # Baso # Seg Neutrophils % Seg Neuts % (Manual) Lymphocytes % (Manual) Monocytes % (Manual) Seg Neutrophils # Seg Neutrophils # Man Lymphocytes # (Manual) Monocytes # (Manual) Eosinophils # (Manual) Basophils # (Manual) PT INR APTT ABG pH ABG pO2 ABG HCO3 ABG O2 Saturation ABG Base Excess ABG Hemoglobin Oxyhemoglobin Sodium Potassium 2.8 L* Chloride Carbon Dioxide BUN 20 H Creatinine 0.5 L Glucose 121 H POC Glucose 128 H 120 H Lactic Acid Calcium Ionized Calcium Phosphorus Magnesium Total Bilirubin AST ALT Alkaline Phosphatase Ammonia Total Creatine Kinase CK-MB (CK-2) CK-MB (CK-2) Rel Index Total Protein Albumin Urine WBC (Auto) Vancomycin Trough Salicylates Acetaminophen Plasma/Serum Alcohol Crossmatch 11/29/19 11/30/19 11/30/19 23:46 04:10 05:02 WBC RBC Hgb Hct MCH RDW Plt Count Lymph % (Auto) [place] % (Auto) [place] # Baso # Seg Neutrophils % Seg Neuts % (Manual) Lymphocytes % (Manual) Monocytes % (Manual) Seg Neutrophils # Seg Neutrophils # Man Lymphocytes # (Manual) Monocytes # (Manual) Eosinophils # (Manual) Basophils # (Manual) PT INR APTT ABG pH ABG pO2 76.3 L ABG HCO3 32.5 H ABG O2 Saturation ABG Base Excess 6.9 H ABG Hemoglobin 8.0 L Oxyhemoglobin 92.6 L Sodium Potassium Chloride Carbon Dioxide BUN Creatinine Glucose POC Glucose 116 H 128 H Lactic Acid Calcium Ionized Calcium Phosphorus Magnesium Total Bilirubin AST ALT Alkaline Phosphatase Ammonia Total Creatine Kinase CK-MB (CK-2) CK-MB (CK-2) Rel Index Total Protein Albumin Urine WBC (Auto) Vancomycin Trough Salicylates Acetaminophen Plasma/Serum Alcohol Crossmatch 11/30/19 11/30/19 11/30/19 05:25 05:25 12:59 WBC 18.4 H RBC 3.10 L Hgb 8.5 L Hct 27.5 L MCH 27 L RDW 20.9 H Plt Count 691 H Lymph % (Auto) 7.1 L [place] % (Auto) 7.7 H [place] # 1.4 H Baso # Seg Neutrophils % 83.4 H Seg Neuts % (Manual) Lymphocytes % (Manual) Monocytes % (Manual) Seg Neutrophils # 15.4 H Seg Neutrophils # Man Lymphocytes # (Manual) Monocytes # (Manual) Eosinophils # (Manual) Basophils # (Manual) PT INR APTT ABG pH ABG pO2 ABG HCO3 ABG O2 Saturation ABG Base Excess ABG Hemoglobin Oxyhemoglobin Sodium 146 H Potassium Chloride 107.2 H Carbon Dioxide BUN Creatinine 0.5 L Glucose 132 H POC Glucose 124 H Lactic Acid Calcium Ionized Calcium Phosphorus Magnesium Total Bilirubin AST 246 H ALT 274 H Alkaline Phosphatase 203 H Ammonia Total Creatine Kinase CK-MB (CK-2) CK-MB (CK-2) Rel Index Total Protein 5.4 L Albumin 2.9 L Urine WBC (Auto) Vancomycin Trough Salicylates Acetaminophen Plasma/Serum Alcohol Crossmatch 11/30/19 12/01/19 12/01/19 17:53 00:05 05:10 WBC RBC Hgb Hct MCH RDW Plt Count Lymph % (Auto) [place] % (Auto) [place] # Baso # Seg Neutrophils % Seg Neuts % (Manual) Lymphocytes % (Manual) Monocytes % (Manual) Seg Neutrophils # Seg Neutrophils # Man Lymphocytes # (Manual) Monocytes # (Manual) Eosinophils # (Manual) Basophils # (Manual) PT INR APTT ABG pH ABG pO2 ABG HCO3 ABG O2 Saturation ABG Base Excess ABG Hemoglobin Oxyhemoglobin Sodium Potassium Chloride Carbon Dioxide BUN Creatinine Glucose POC Glucose 113 H 143 H 145 H Lactic Acid Calcium Ionized Calcium Phosphorus Magnesium Total Bilirubin AST ALT Alkaline Phosphatase Ammonia Total Creatine Kinase CK-MB (CK-2) CK-MB (CK-2) Rel Index Total Protein Albumin Urine WBC (Auto) Vancomycin Trough Salicylates Acetaminophen Plasma/Serum Alcohol Crossmatch 12/01/19 12/01/19 12/01/19 05:33 08:23 08:23 WBC 22.7 H RBC 2.88 L Hgb 7.9 L Hct 25.2 L MCH 27 L RDW 21.0 H Plt Count 732 H Lymph % (Auto) [place] % (Auto) [place] # Baso # Seg Neutrophils % Seg Neuts % (Manual) 91.0 H Lymphocytes % (Manual) 3.0 L Monocytes % (Manual) Seg Neutrophils # Seg Neutrophils # Man 20.7 H Lymphocytes # (Manual) 0.7 L Monocytes # (Manual) 1.1 H Eosinophils # (Manual) Basophils # (Manual) PT INR APTT ABG pH ABG pO2 68.6 L ABG HCO3 34.1 H ABG O2 Saturation ABG Base Excess 9.0 H ABG Hemoglobin 6.5 L Oxyhemoglobin 94.7 L Sodium Potassium Chloride Carbon Dioxide BUN Creatinine 0.5 L Glucose 125 H POC Glucose Lactic Acid Calcium Ionized Calcium Phosphorus Magnesium Total Bilirubin AST ALT Alkaline Phosphatase Ammonia Total Creatine Kinase CK-MB (CK-2) CK-MB (CK-2) Rel Index Total Protein Albumin Urine WBC (Auto) Vancomycin Trough Salicylates Acetaminophen Plasma/Serum Alcohol Crossmatch 12/01/19 12/01/19 12/01/19 13:21 17:54 20:59 WBC RBC Hgb Hct MCH RDW Plt Count Lymph % (Auto) [place] % (Auto) [place] # Baso # Seg Neutrophils % Seg Neuts % (Manual) Lymphocytes % (Manual) Monocytes % (Manual) Seg Neutrophils # Seg Neutrophils # Man Lymphocytes # (Manual) Monocytes # (Manual) Eosinophils # (Manual) Basophils # (Manual) PT INR APTT ABG pH ABG pO2 78.3 L ABG HCO3 33.8 H ABG O2 Saturation 94.9 L ABG Base Excess 7.9 H ABG Hemoglobin 11.5 L Oxyhemoglobin 92.3 L Sodium Potassium Chloride Carbon Dioxide BUN Creatinine Glucose POC Glucose 111 H 115 H Lactic Acid Calcium Ionized Calcium Phosphorus Magnesium Total Bilirubin AST ALT Alkaline Phosphatase Ammonia Total Creatine Kinase CK-MB (CK-2) CK-MB (CK-2) Rel Index Total Protein Albumin Urine WBC (Auto) Vancomycin Trough Salicylates Acetaminophen Plasma/Serum Alcohol Crossmatch 12/02/19 12/03/19 12/04/19 12:55 20:00 04:26 WBC 15.2 H RBC 2.69 L Hgb 7.4 L Hct 23.6 L MCH 27 L RDW 19.9 H Plt Count 838 H Lymph % (Auto) [place] % (Auto) [place] # Baso # Seg Neutrophils % Seg Neuts % (Manual) Lymphocytes % (Manual) Monocytes % (Manual) Seg Neutrophils # Seg Neutrophils # Man Lymphocytes # (Manual) Monocytes # (Manual) Eosinophils # (Manual) Basophils # (Manual) PT INR APTT ABG pH ABG pO2 68.3 L ABG HCO3 33.5 H ABG O2 Saturation 93.5 L ABG Base Excess 8.4 H ABG Hemoglobin 7.3 L Oxyhemoglobin 90.9 L Sodium Potassium Chloride Carbon Dioxide BUN Creatinine Glucose POC Glucose 107 H Lactic Acid Calcium Ionized Calcium Phosphorus Magnesium Total Bilirubin AST ALT Alkaline Phosphatase Ammonia Total Creatine Kinase CK-MB (CK-2) CK-MB (CK-2) Rel Index Total Protein Albumin Urine WBC (Auto) Vancomycin Trough Salicylates Acetaminophen Plasma/Serum Alcohol Crossmatch 12/04/19 12/04/19 12/04/19 04:26 07:45 12:02 WBC 15.9 H RBC 2.88 L Hgb 7.9 L Hct 25.1 L MCH RDW 20.4 H Plt Count 839 H Lymph % (Auto) 11.3 L [place] % (Auto) 15.2 H [place] # 2.4 H Baso # Seg Neutrophils % 72.4 H Seg Neuts % (Manual) Lymphocytes % (Manual) Monocytes % (Manual) Seg Neutrophils # 11.5 H Seg Neutrophils # Man Lymphocytes # (Manual) Monocytes # (Manual) Eosinophils # (Manual) Basophils # (Manual) PT INR APTT ABG pH ABG pO2 ABG HCO3 ABG O2 Saturation ABG Base Excess ABG Hemoglobin Oxyhemoglobin Sodium Potassium Chloride 96.5 L Carbon Dioxide BUN 21 H Creatinine 0.6 L Glucose 107 H POC Glucose 138 H Lactic Acid Calcium Ionized Calcium Phosphorus Magnesium Total Bilirubin AST ALT Alkaline Phosphatase Ammonia Total Creatine Kinase CK-MB (CK-2) CK-MB (CK-2) Rel Index Total Protein Albumin Urine WBC (Auto) Vancomycin Trough Salicylates Acetaminophen Plasma/Serum Alcohol Crossmatch 12/04/19 12/05/19 12/05/19 18:16 11:55 18:36 WBC RBC Hgb Hct MCH RDW Plt Count Lymph % (Auto) [place] % (Auto) [place] # Baso # Seg Neutrophils % Seg Neuts % (Manual) Lymphocytes % (Manual) Monocytes % (Manual) Seg Neutrophils # Seg Neutrophils # Man Lymphocytes # (Manual) Monocytes # (Manual) Eosinophils # (Manual) Basophils # (Manual) PT INR APTT ABG pH ABG pO2 ABG HCO3 ABG O2 Saturation ABG Base Excess ABG Hemoglobin Oxyhemoglobin Sodium Potassium Chloride Carbon Dioxide BUN Creatinine Glucose POC Glucose 135 H 125 H 135 H Lactic Acid Calcium Ionized Calcium Phosphorus Magnesium Total Bilirubin AST ALT Alkaline Phosphatase Ammonia Total Creatine Kinase CK-MB (CK-2) CK-MB (CK-2) Rel Index Total Protein Albumin Urine WBC (Auto) Vancomycin Trough Salicylates Acetaminophen Plasma/Serum Alcohol Crossmatch 12/05/19 12/06/19 12/06/19 23:30 04:14 05:43 WBC RBC Hgb Hct MCH RDW Plt Count Lymph % (Auto) [place] % (Auto) [place] # Baso # Seg Neutrophils % Seg Neuts % (Manual) Lymphocytes % (Manual) Monocytes % (Manual) Seg Neutrophils # Seg Neutrophils # Man Lymphocytes # (Manual) Monocytes # (Manual) Eosinophils # (Manual) Basophils # (Manual) PT INR APTT ABG pH ABG pO2 ABG HCO3 ABG O2 Saturation ABG Base Excess ABG Hemoglobin Oxyhemoglobin Sodium Potassium 5.6 H Chloride 95.0 L Carbon Dioxide BUN 48 H Creatinine 1.3 H D Glucose POC Glucose 126 H 121 H Lactic Acid Calcium Ionized Calcium Phosphorus Magnesium Total Bilirubin AST 89 H ALT 98 H Alkaline Phosphatase 476 H Ammonia Total Creatine Kinase CK-MB (CK-2) CK-MB (CK-2) Rel Index Total Protein Albumin 2.8 L Urine WBC (Auto) Vancomycin Trough Salicylates Acetaminophen Plasma/Serum Alcohol Crossmatch 12/06/19 12/06/19 12/07/19 10:39 14:34 00:19 WBC 17.3 H RBC 2.60 L Hgb 7.1 L Hct 22.7 L MCH 27 L RDW 20.1 H Plt Count 832 H Lymph % (Auto) [place] % (Auto) [place] # Baso # Seg Neutrophils % Seg Neuts % (Manual) Lymphocytes % (Manual) Monocytes % (Manual) Seg Neutrophils # Seg Neutrophils # Man Lymphocytes # (Manual) Monocytes # (Manual) Eosinophils # (Manual) Basophils # (Manual) PT INR APTT ABG pH ABG pO2 ABG HCO3 ABG O2 Saturation ABG Base Excess ABG Hemoglobin Oxyhemoglobin Sodium Potassium Chloride Carbon Dioxide BUN Creatinine Glucose POC Glucose 128 H 136 H Lactic Acid Calcium Ionized Calcium Phosphorus Magnesium Total Bilirubin AST ALT Alkaline Phosphatase Ammonia Total Creatine Kinase CK-MB (CK-2) CK-MB (CK-2) Rel Index Total Protein Albumin Urine WBC (Auto) Vancomycin Trough Salicylates Acetaminophen Plasma/Serum Alcohol Crossmatch 12/07/19 12/07/19 12/07/19 03:44 03:44 05:53 WBC 16.2 H RBC 2.56 L Hgb 7.1 L Hct 22.3 L MCH RDW 19.4 H Plt Count 782 H Lymph % (Auto) [place] % (Auto) [place] # Baso # Seg Neutrophils % Seg Neuts % (Manual) Lymphocytes % (Manual) Monocytes % (Manual) Seg Neutrophils # Seg Neutrophils # Man Lymphocytes # (Manual) Monocytes # (Manual) Eosinophils # (Manual) Basophils # (Manual) PT INR APTT ABG pH ABG pO2 ABG HCO3 ABG O2 Saturation ABG Base Excess ABG Hemoglobin Oxyhemoglobin Sodium Potassium Chloride 95.6 L Carbon Dioxide BUN 56 H Creatinine 1.4 H Glucose 120 H POC Glucose 128 H Lactic Acid Calcium 10.3 H Ionized Calcium Phosphorus Magnesium Total Bilirubin AST ALT Alkaline Phosphatase Ammonia Total Creatine Kinase CK-MB (CK-2) CK-MB (CK-2) Rel Index Total Protein Albumin Urine WBC (Auto) Vancomycin Trough Salicylates Acetaminophen Plasma/Serum Alcohol Crossmatch 12/07/19 12/07/19 12/08/19 12:54 23:47 00:20 WBC RBC Hgb Hct MCH RDW Plt Count Lymph % (Auto) [place] % (Auto) [place] # Baso # Seg Neutrophils % Seg Neuts % (Manual) Lymphocytes % (Manual) Monocytes % (Manual) Seg Neutrophils # Seg Neutrophils # Man Lymphocytes # (Manual) Monocytes # (Manual) Eosinophils # (Manual) Basophils # (Manual) PT INR APTT ABG pH ABG pO2 ABG HCO3 ABG O2 Saturation ABG Base Excess ABG Hemoglobin Oxyhemoglobin Sodium Potassium Chloride Carbon Dioxide BUN Creatinine Glucose POC Glucose 128 H 130 H 124 H Lactic Acid Calcium Ionized Calcium Phosphorus Magnesium Total Bilirubin AST ALT Alkaline Phosphatase Ammonia Total Creatine Kinase CK-MB (CK-2) CK-MB (CK-2) Rel Index Total Protein Albumin Urine WBC (Auto) Vancomycin Trough Salicylates Acetaminophen Plasma/Serum Alcohol Crossmatch 12/08/19 12/08/19 12/08/19 06:38 12:04 18:26 WBC RBC Hgb Hct MCH RDW Plt Count Lymph % (Auto) [place] % (Auto) [place] # Baso # Seg Neutrophils % Seg Neuts % (Manual) Lymphocytes % (Manual) Monocytes % (Manual) Seg Neutrophils # Seg Neutrophils # Man Lymphocytes # (Manual) Monocytes # (Manual) Eosinophils # (Manual) Basophils # (Manual) PT INR APTT ABG pH ABG pO2 ABG HCO3 ABG O2 Saturation ABG Base Excess ABG Hemoglobin Oxyhemoglobin Sodium Potassium Chloride Carbon Dioxide BUN Creatinine Glucose POC Glucose 137 H 129 H 150 H Lactic Acid Calcium Ionized Calcium Phosphorus Magnesium Total Bilirubin AST ALT Alkaline Phosphatase Ammonia Total Creatine Kinase CK-MB (CK-2) CK-MB (CK-2) Rel Index Total Protein Albumin Urine WBC (Auto) Vancomycin Trough Salicylates Acetaminophen Plasma/Serum Alcohol Crossmatch 12/09/19 12/09/19 12/09/19 00:56 05:34 06:13 WBC RBC Hgb Hct MCH RDW Plt Count Lymph % (Auto) [place] % (Auto) [place] # Baso # Seg Neutrophils % Seg Neuts % (Manual) Lymphocytes % (Manual) Monocytes % (Manual) Seg Neutrophils # Seg Neutrophils # Man Lymphocytes # (Manual) Monocytes # (Manual) Eosinophils # (Manual) Basophils # (Manual) PT INR APTT ABG pH ABG pO2 ABG HCO3 ABG O2 Saturation ABG Base Excess ABG Hemoglobin Oxyhemoglobin Sodium 146 H Potassium Chloride Carbon Dioxide BUN 66 H Creatinine 1.9 H Glucose 116 H POC Glucose 130 H 130 H Lactic Acid Calcium Ionized Calcium Phosphorus Magnesium Total Bilirubin AST ALT Alkaline Phosphatase Ammonia Total Creatine Kinase CK-MB (CK-2) CK-MB (CK-2) Rel Index Total Protein Albumin Urine WBC (Auto) Vancomycin Trough Salicylates Acetaminophen Plasma/Serum Alcohol Crossmatch 12/09/19 12/09/19 12/10/19 11:52 17:50 00:14 WBC RBC Hgb Hct MCH RDW Plt Count Lymph % (Auto) [place] % (Auto) [place] # Baso # Seg Neutrophils % Seg Neuts % (Manual) Lymphocytes % (Manual) Monocytes % (Manual) Seg Neutrophils # Seg Neutrophils # Man Lymphocytes # (Manual) Monocytes # (Manual) Eosinophils # (Manual) Basophils # (Manual) PT INR APTT ABG pH ABG pO2 ABG HCO3 ABG O2 Saturation ABG Base Excess ABG Hemoglobin Oxyhemoglobin Sodium Potassium Chloride Carbon Dioxide BUN Creatinine Glucose POC Glucose 135 H 120 H 116 H Lactic Acid Calcium Ionized Calcium Phosphorus Magnesium Total Bilirubin AST ALT Alkaline Phosphatase Ammonia Total Creatine Kinase CK-MB (CK-2) CK-MB (CK-2) Rel Index Total Protein Albumin Urine WBC (Auto) Vancomycin Trough Salicylates Acetaminophen Plasma/Serum Alcohol Crossmatch 12/10/19 12/10/19 12/10/19 05:38 11:38 17:34 WBC RBC Hgb Hct MCH RDW Plt Count Lymph % (Auto) [place] % (Auto) [place] # Baso # Seg Neutrophils % Seg Neuts % (Manual) Lymphocytes % (Manual) Monocytes % (Manual) Seg Neutrophils # Seg Neutrophils # Man Lymphocytes # (Manual) Monocytes # (Manual) Eosinophils # (Manual) Basophils # (Manual) PT INR APTT ABG pH ABG pO2 ABG HCO3 ABG O2 Saturation ABG Base Excess ABG Hemoglobin Oxyhemoglobin Sodium Potassium Chloride Carbon Dioxide BUN Creatinine Glucose POC Glucose 115 H 112 H 130 H Lactic Acid Calcium Ionized Calcium Phosphorus Magnesium Total Bilirubin AST ALT Alkaline Phosphatase Ammonia Total Creatine Kinase CK-MB (CK-2) CK-MB (CK-2) Rel Index Total Protein Albumin Urine WBC (Auto) Vancomycin Trough Salicylates Acetaminophen Plasma/Serum Alcohol Crossmatch 12/11/19 12/11/19 12/11/19 00:20 05:31 12:22 WBC RBC Hgb Hct MCH RDW Plt Count Lymph % (Auto) [place] % (Auto) [place] # Baso # Seg Neutrophils % Seg Neuts % (Manual) Lymphocytes % (Manual) Monocytes % (Manual) Seg Neutrophils # Seg Neutrophils # Man Lymphocytes # (Manual) Monocytes # (Manual) Eosinophils # (Manual) Basophils # (Manual) PT INR APTT ABG pH ABG pO2 ABG HCO3 ABG O2 Saturation ABG Base Excess ABG Hemoglobin Oxyhemoglobin Sodium Potassium Chloride Carbon Dioxide BUN Creatinine Glucose POC Glucose 124 H 132 H 128 H Lactic Acid Calcium Ionized Calcium Phosphorus Magnesium Total Bilirubin AST ALT Alkaline Phosphatase Ammonia Total Creatine Kinase CK-MB (CK-2) CK-MB (CK-2) Rel Index Total Protein Albumin Urine WBC (Auto) Vancomycin Trough Salicylates Acetaminophen Plasma/Serum Alcohol Crossmatch 12/11/19 12/11/19 12/12/19 18:04 23:42 03:51 WBC RBC Hgb Hct MCH RDW Plt Count Lymph % (Auto) [place] % (Auto) [place] # Baso # Seg Neutrophils % Seg Neuts % (Manual) Lymphocytes % (Manual) Monocytes % (Manual) Seg Neutrophils # Seg Neutrophils # Man Lymphocytes # (Manual) Monocytes # (Manual) Eosinophils # (Manual) Basophils # (Manual) PT INR APTT ABG pH ABG pO2 ABG HCO3 ABG O2 Saturation ABG Base Excess ABG Hemoglobin Oxyhemoglobin Sodium 149 H Potassium Chloride Carbon Dioxide 20 L D BUN 77 H Creatinine 2.8 H Glucose POC Glucose 133 H 154 H Lactic Acid Calcium Ionized Calcium Phosphorus Magnesium Total Bilirubin AST ALT Alkaline Phosphatase Ammonia Total Creatine Kinase CK-MB (CK-2) CK-MB (CK-2) Rel Index Total Protein Albumin Urine WBC (Auto) Vancomycin Trough Salicylates Acetaminophen Plasma/Serum Alcohol Crossmatch 12/12/19 12/12/19 12/12/19 05:18 05:26 10:30 WBC 18.0 H RBC 2.51 L Hgb 6.8 L Hct 22.0 L MCH 27 L RDW 19.9 H Plt Count 582 H Lymph % (Auto) [place] % (Auto) [place] # Baso # Seg Neutrophils % Seg Neuts % (Manual) Lymphocytes % (Manual) Monocytes % (Manual) Seg Neutrophils # Seg Neutrophils # Man Lymphocytes # (Manual) Monocytes # (Manual) Eosinophils # (Manual) Basophils # (Manual) PT INR APTT ABG pH ABG pO2 ABG HCO3 ABG O2 Saturation ABG Base Excess ABG Hemoglobin Oxyhemoglobin Sodium Potassium Chloride Carbon Dioxide BUN Creatinine Glucose POC Glucose 135 H Lactic Acid Calcium Ionized Calcium Phosphorus Magnesium Total Bilirubin AST ALT Alkaline Phosphatase Ammonia Total Creatine Kinase CK-MB (CK-2) CK-MB (CK-2) Rel Index Total Protein Albumin Urine WBC (Auto) Vancomycin Trough Salicylates Acetaminophen Plasma/Serum Alcohol Crossmatch See Detail 12/12/19 12/12/19 12/12/19 11:44 18:10 23:21 WBC RBC Hgb Hct MCH RDW Plt Count Lymph % (Auto) [place] % (Auto) [place] # Baso # Seg Neutrophils % Seg Neuts % (Manual) Lymphocytes % (Manual) Monocytes % (Manual) Seg Neutrophils # Seg Neutrophils # Man Lymphocytes # (Manual) Monocytes # (Manual) Eosinophils # (Manual) Basophils # (Manual) PT INR APTT ABG pH ABG pO2 ABG HCO3 ABG O2 Saturation ABG Base Excess ABG Hemoglobin Oxyhemoglobin Sodium Potassium Chloride Carbon Dioxide BUN Creatinine Glucose POC Glucose 108 H 107 H 126 H Lactic Acid Calcium Ionized Calcium Phosphorus Magnesium Total Bilirubin AST ALT Alkaline Phosphatase Ammonia Total Creatine Kinase CK-MB (CK-2) CK-MB (CK-2) Rel Index Total Protein Albumin Urine WBC (Auto) Vancomycin Trough Salicylates Acetaminophen Plasma/Serum Alcohol Crossmatch 12/13/19 12/13/19 12/13/19 05:41 07:48 07:48 WBC 38.3 H RBC 2.37 L Hgb 6.3 L Hct 20.9 L MCH 27 L RDW 20.2 H Plt Count 546 H Lymph % (Auto) [place] % (Auto) [place] # Baso # Seg Neutrophils % Seg Neuts % (Manual) 93.0 H Lymphocytes % (Manual) 1.0 L Monocytes % (Manual) Seg Neutrophils # Seg Neutrophils # Man 35.6 H Lymphocytes # (Manual) 0.4 L Monocytes # (Manual) Eosinophils # (Manual) Basophils # (Manual) 0.4 H PT INR APTT ABG pH ABG pO2 ABG HCO3 ABG O2 Saturation ABG Base Excess ABG Hemoglobin Oxyhemoglobin Sodium 152 H Potassium 3.1 L D Chloride 111.9 H Carbon Dioxide 21 L BUN 53 H Creatinine 1.9 H Glucose 141 H POC Glucose 128 H Lactic Acid Calcium Ionized Calcium Phosphorus Magnesium Total Bilirubin AST ALT Alkaline Phosphatase 316 H Ammonia Total Creatine Kinase CK-MB (CK-2) CK-MB (CK-2) Rel Index Total Protein Albumin 2.4 L Urine WBC (Auto) Vancomycin Trough Salicylates Acetaminophen Plasma/Serum Alcohol Crossmatch 12/13/19 12/13/19 12/14/19 18:17 23:19 05:36 WBC RBC Hgb Hct MCH RDW Plt Count Lymph % (Auto) [place] % (Auto) [place] # Baso # Seg Neutrophils % Seg Neuts % (Manual) Lymphocytes % (Manual) Monocytes % (Manual) Seg Neutrophils # Seg Neutrophils # Man Lymphocytes # (Manual) Monocytes # (Manual) Eosinophils # (Manual) Basophils # (Manual) PT INR APTT ABG pH ABG pO2 ABG HCO3 ABG O2 Saturation ABG Base Excess ABG Hemoglobin Oxyhemoglobin Sodium Potassium Chloride Carbon Dioxide BUN Creatinine Glucose POC Glucose 141 H 158 H 182 H Lactic Acid Calcium Ionized Calcium Phosphorus Magnesium Total Bilirubin AST ALT Alkaline Phosphatase Ammonia Total Creatine Kinase CK-MB (CK-2) CK-MB (CK-2) Rel Index Total Protein Albumin Urine WBC (Auto) Vancomycin Trough Salicylates Acetaminophen Plasma/Serum Alcohol Crossmatch 12/14/19 12/14/19 12/14/19 08:48 08:48 10:31 WBC 33.3 H RBC 2.70 L Hgb 7.9 L 8.0 L Hct 25.3 L 24.0 L MCH RDW 19.2 H Plt Count 476 H Lymph % (Auto) [place] % (Auto) [place] # Baso # Seg Neutrophils % Seg Neuts % (Manual) Lymphocytes % (Manual) Monocytes % (Manual) Seg Neutrophils # Seg Neutrophils # Man Lymphocytes # (Manual) Monocytes # (Manual) Eosinophils # (Manual) Basophils # (Manual) PT INR APTT ABG pH ABG pO2 ABG HCO3 ABG O2 Saturation ABG Base Excess ABG Hemoglobin Oxyhemoglobin Sodium 153 H Potassium 2.5 L* Chloride 114.9 H Carbon Dioxide 20 L BUN 38 H Creatinine 1.4 H Glucose 177 H POC Glucose Lactic Acid Calcium Ionized Calcium Phosphorus Magnesium Total Bilirubin AST ALT Alkaline Phosphatase Ammonia Total Creatine Kinase CK-MB (CK-2) CK-MB (CK-2) Rel Index Total Protein Albumin Urine WBC (Auto) Vancomycin Trough Salicylates Acetaminophen Plasma/Serum Alcohol Crossmatch 12/14/19 12/14/19 12/14/19 12:57 16:15 17:50 WBC RBC Hgb Hct MCH RDW Plt Count Lymph % (Auto) [place] % (Auto) [place] # Baso # Seg Neutrophils % Seg Neuts % (Manual) Lymphocytes % (Manual) Monocytes % (Manual) Seg Neutrophils # Seg Neutrophils # Man Lymphocytes # (Manual) Monocytes # (Manual) Eosinophils # (Manual) Basophils # (Manual) PT INR APTT ABG pH ABG pO2 73.6 L ABG HCO3 ABG O2 Saturation ABG Base Excess ABG Hemoglobin 7.6 L Oxyhemoglobin 94.0 L Sodium Potassium Chloride Carbon Dioxide BUN Creatinine Glucose POC Glucose 174 H 150 H Lactic Acid Calcium Ionized Calcium Phosphorus Magnesium Total Bilirubin AST ALT Alkaline Phosphatase Ammonia Total Creatine Kinase CK-MB (CK-2) CK-MB (CK-2) Rel Index Total Protein Albumin Urine WBC (Auto) Vancomycin Trough Salicylates Acetaminophen Plasma/Serum Alcohol Crossmatch 12/15/19 12/15/19 12/15/19 00:28 05:27 07:23 WBC 30.0 H RBC 3.11 L Hgb 8.6 L Hct 27.7 L MCH RDW 20.0 H Plt Count 473 H Lymph % (Auto) [place] % (Auto) [place] # Baso # Seg Neutrophils % Seg Neuts % (Manual) Lymphocytes % (Manual) Monocytes % (Manual) Seg Neutrophils # Seg Neutrophils # Man Lymphocytes # (Manual) Monocytes # (Manual) Eosinophils # (Manual) Basophils # (Manual) PT INR APTT ABG pH ABG pO2 ABG HCO3 ABG O2 Saturation ABG Base Excess ABG Hemoglobin Oxyhemoglobin Sodium Potassium Chloride Carbon Dioxide BUN Creatinine Glucose POC Glucose 167 H 148 H Lactic Acid Calcium Ionized Calcium Phosphorus Magnesium Total Bilirubin AST ALT Alkaline Phosphatase Ammonia Total Creatine Kinase CK-MB (CK-2) CK-MB (CK-2) Rel Index Total Protein Albumin Urine WBC (Auto) Vancomycin Trough Salicylates Acetaminophen Plasma/Serum Alcohol Crossmatch 12/15/19 12/15/19 12/15/19 07:23 12:21 17:41 WBC RBC Hgb Hct MCH RDW Plt Count Lymph % (Auto) [place] % (Auto) [place] # Baso # Seg Neutrophils % Seg Neuts % (Manual) Lymphocytes % (Manual) Monocytes % (Manual) Seg Neutrophils # Seg Neutrophils # Man Lymphocytes # (Manual) Monocytes # (Manual) Eosinophils # (Manual) Basophils # (Manual) PT INR APTT ABG pH ABG pO2 ABG HCO3 ABG O2 Saturation ABG Base Excess ABG Hemoglobin Oxyhemoglobin Sodium 147 H Potassium 3.5 L D Chloride 111.2 H Carbon Dioxide 19 L BUN 29 H Creatinine Glucose 126 H POC Glucose 154 H 144 H Lactic Acid Calcium Ionized Calcium Phosphorus Magnesium Total Bilirubin AST ALT Alkaline Phosphatase Ammonia Total Creatine Kinase CK-MB (CK-2) CK-MB (CK-2) Rel Index Total Protein Albumin Urine WBC (Auto) Vancomycin Trough Salicylates Acetaminophen Plasma/Serum Alcohol Crossmatch 12/16/19 12/16/19 12/16/19 00:22 05:30 05:44 WBC 30.8 H RBC 2.58 L Hgb 7.1 L Hct 22.7 L MCH RDW 19.6 H Plt Count 451 H Lymph % (Auto) [place] % (Auto) [place] # Baso # Seg Neutrophils % Seg Neuts % (Manual) Lymphocytes % (Manual) Monocytes % (Manual) Seg Neutrophils # Seg Neutrophils # Man Lymphocytes # (Manual) Monocytes # (Manual) Eosinophils # (Manual) Basophils # (Manual) PT INR APTT ABG pH ABG pO2 ABG HCO3 ABG O2 Saturation ABG Base Excess ABG Hemoglobin Oxyhemoglobin Sodium Potassium Chloride Carbon Dioxide BUN Creatinine Glucose POC Glucose 139 H 126 H Lactic Acid Calcium Ionized Calcium Phosphorus Magnesium Total Bilirubin AST ALT Alkaline Phosphatase Ammonia Total Creatine Kinase CK-MB (CK-2) CK-MB (CK-2) Rel Index Total Protein Albumin Urine WBC (Auto) Vancomycin Trough Salicylates Acetaminophen Plasma/Serum Alcohol Crossmatch 12/16/19 12/16/19 12/16/19 05:44 11:48 17:37 WBC RBC Hgb Hct MCH RDW Plt Count Lymph % (Auto) [place] % (Auto) [place] # Baso # Seg Neutrophils % Seg Neuts % (Manual) Lymphocytes % (Manual) Monocytes % (Manual) Seg Neutrophils # Seg Neutrophils # Man Lymphocytes # (Manual) Monocytes # (Manual) Eosinophils # (Manual) Basophils # (Manual) PT INR APTT ABG pH ABG pO2 ABG HCO3 ABG O2 Saturation ABG Base Excess ABG Hemoglobin Oxyhemoglobin Sodium Potassium 3.4 L Chloride 109.2 H Carbon Dioxide 19 L BUN 27 H Creatinine Glucose 124 H POC Glucose 125 H 148 H Lactic Acid Calcium Ionized Calcium Phosphorus Magnesium Total Bilirubin AST ALT Alkaline Phosphatase Ammonia Total Creatine Kinase CK-MB (CK-2) CK-MB (CK-2) Rel Index Total Protein Albumin Urine WBC (Auto) Vancomycin Trough Salicylates Acetaminophen Plasma/Serum Alcohol Crossmatch 12/16/19 12/17/19 12/17/19 23:43 05:28 12:47 WBC RBC Hgb Hct MCH RDW Plt Count Lymph % (Auto) [place] % (Auto) [place] # Baso # Seg Neutrophils % Seg Neuts % (Manual) Lymphocytes % (Manual) Monocytes % (Manual) Seg Neutrophils # Seg Neutrophils # Man Lymphocytes # (Manual) Monocytes # (Manual) Eosinophils # (Manual) Basophils # (Manual) PT INR APTT ABG pH ABG pO2 ABG HCO3 ABG O2 Saturation ABG Base Excess ABG Hemoglobin Oxyhemoglobin Sodium Potassium Chloride Carbon Dioxide BUN Creatinine Glucose POC Glucose 142 H 140 H 125 H Lactic Acid Calcium Ionized Calcium Phosphorus Magnesium Total Bilirubin AST ALT Alkaline Phosphatase Ammonia Total Creatine Kinase CK-MB (CK-2) CK-MB (CK-2) Rel Index Total Protein Albumin Urine WBC (Auto) Vancomycin Trough Salicylates Acetaminophen Plasma/Serum Alcohol Crossmatch 12/17/19 12/17/19 12/17/19 17:05 18:00 Unknown WBC RBC Hgb Hct MCH RDW Plt Count Lymph % (Auto) [place] % (Auto) [place] # Baso # Seg Neutrophils % Seg Neuts % (Manual) Lymphocytes % (Manual) Monocytes % (Manual) Seg Neutrophils # Seg Neutrophils # Man Lymphocytes # (Manual) Monocytes # (Manual) Eosinophils # (Manual) Basophils # (Manual) PT INR APTT ABG pH ABG pO2 68.1 L ABG HCO3 ABG O2 Saturation 93.7 L ABG Base Excess ABG Hemoglobin 5.0 L Oxyhemoglobin 91.7 L Sodium Potassium Chloride Carbon Dioxide BUN Creatinine Glucose POC Glucose 140 H Lactic Acid Calcium Ionized Calcium Phosphorus Magnesium Total Bilirubin AST ALT Alkaline Phosphatase Ammonia Total Creatine Kinase CK-MB (CK-2) CK-MB (CK-2) Rel Index Total Protein Albumin Urine WBC (Auto) Vancomycin Trough Salicylates Acetaminophen Plasma/Serum Alcohol Crossmatch 12/18/19 12/18/19 12/18/19 00:16 04:53 04:53 WBC 28.6 H RBC 2.27 L Hgb 6.3 L Hct 19.5 L* MCH RDW 20.0 H Plt Count 497 H Lymph % (Auto) [place] % (Auto) [place] # Baso # Seg Neutrophils % Seg Neuts % (Manual) Lymphocytes % (Manual) Monocytes % (Manual) Seg Neutrophils # Seg Neutrophils # Man Lymphocytes # (Manual) Monocytes # (Manual) Eosinophils # (Manual) Basophils # (Manual) PT INR APTT ABG pH ABG pO2 ABG HCO3 ABG O2 Saturation ABG Base Excess ABG Hemoglobin Oxyhemoglobin Sodium Potassium Chloride 107.9 H Carbon Dioxide 20 L BUN 27 H Creatinine 0.6 L Glucose 116 H POC Glucose 123 H Lactic Acid Calcium Ionized Calcium Phosphorus Magnesium Total Bilirubin AST ALT Alkaline Phosphatase Ammonia Total Creatine Kinase CK-MB (CK-2) CK-MB (CK-2) Rel Index Total Protein Albumin Urine WBC (Auto) Vancomycin Trough Salicylates Acetaminophen Plasma/Serum Alcohol Crossmatch 12/18/19 12/18/19 12/18/19 06:38 11:22 12:08 WBC RBC Hgb Hct MCH RDW Plt Count Lymph % (Auto) [place] % (Auto) [place] # Baso # Seg Neutrophils % Seg Neuts % (Manual) Lymphocytes % (Manual) Monocytes % (Manual) Seg Neutrophils # Seg Neutrophils # Man Lymphocytes # (Manual) Monocytes # (Manual) Eosinophils # (Manual) Basophils # (Manual) PT INR APTT ABG pH ABG pO2 ABG HCO3 ABG O2 Saturation ABG Base Excess ABG Hemoglobin Oxyhemoglobin Sodium Potassium Chloride Carbon Dioxide BUN Creatinine Glucose POC Glucose 120 H 127 H Lactic Acid Calcium Ionized Calcium Phosphorus Magnesium Total Bilirubin AST ALT Alkaline Phosphatase Ammonia Total Creatine Kinase CK-MB (CK-2) CK-MB (CK-2) Rel Index Total Protein Albumin Urine WBC (Auto) Vancomycin Trough Salicylates Acetaminophen Plasma/Serum Alcohol Crossmatch See Detail 12/18/19 12/18/19 12/18/19 14:05 17:49 23:53 WBC RBC Hgb Hct MCH RDW Plt Count Lymph % (Auto) [place] % (Auto) [place] # Baso # Seg Neutrophils % Seg Neuts % (Manual) Lymphocytes % (Manual) Monocytes % (Manual) Seg Neutrophils # Seg Neutrophils # Man Lymphocytes # (Manual) Monocytes # (Manual) Eosinophils # (Manual) Basophils # (Manual) PT INR APTT ABG pH 7.267 L ABG pO2 69.8 L ABG HCO3 ABG O2 Saturation 88.4 L ABG Base Excess ABG Hemoglobin 7.1 L Oxyhemoglobin 86.4 L Sodium Potassium Chloride Carbon Dioxide BUN Creatinine Glucose POC Glucose 157 H 128 H Lactic Acid Calcium Ionized Calcium Phosphorus Magnesium Total Bilirubin AST ALT Alkaline Phosphatase Ammonia Total Creatine Kinase CK-MB (CK-2) CK-MB (CK-2) Rel Index Total Protein Albumin Urine WBC (Auto) Vancomycin Trough Salicylates Acetaminophen Plasma/Serum Alcohol Crossmatch 12/19/19 12/19/19 12/19/19 03:37 03:37 05:25 WBC 31.3 H RBC 2.60 L Hgb 7.6 L Hct 23.0 L MCH RDW 19.4 H Plt Count 530 H Lymph % (Auto) [place] % (Auto) [place] # Baso # Seg Neutrophils % Seg Neuts % (Manual) Lymphocytes % (Manual) Monocytes % (Manual) Seg Neutrophils # Seg Neutrophils # Man Lymphocytes # (Manual) Monocytes # (Manual) Eosinophils # (Manual) Basophils # (Manual) PT INR APTT ABG pH ABG pO2 ABG HCO3 ABG O2 Saturation ABG Base Excess ABG Hemoglobin Oxyhemoglobin Sodium Potassium Chloride Carbon Dioxide 18 L BUN 36 H Creatinine Glucose 111 H POC Glucose 123 H Lactic Acid Calcium Ionized Calcium Phosphorus Magnesium Total Bilirubin AST ALT Alkaline Phosphatase Ammonia Total Creatine Kinase CK-MB (CK-2) CK-MB (CK-2) Rel Index Total Protein Albumin Urine WBC (Auto) Vancomycin Trough Salicylates Acetaminophen Plasma/Serum Alcohol Crossmatch 12/19/19 12/19/19 12/20/19 12:59 18:33 00:00 WBC RBC Hgb Hct MCH RDW Plt Count Lymph % (Auto) [place] % (Auto) [place] # Baso # Seg Neutrophils % Seg Neuts % (Manual) Lymphocytes % (Manual) Monocytes % (Manual) Seg Neutrophils # Seg Neutrophils # Man Lymphocytes # (Manual) Monocytes # (Manual) Eosinophils # (Manual) Basophils # (Manual) PT INR APTT ABG pH ABG pO2 ABG HCO3 ABG O2 Saturation ABG Base Excess ABG Hemoglobin Oxyhemoglobin Sodium Potassium Chloride Carbon Dioxide BUN Creatinine Glucose POC Glucose 130 H 118 H 135 H Lactic Acid Calcium Ionized Calcium Phosphorus Magnesium Total Bilirubin AST ALT Alkaline Phosphatase Ammonia Total Creatine Kinase CK-MB (CK-2) CK-MB (CK-2) Rel Index Total Protein Albumin Urine WBC (Auto) Vancomycin Trough Salicylates Acetaminophen Plasma/Serum Alcohol Crossmatch 12/20/19 12/20/19 12/20/19 05:46 12:31 18:07 WBC RBC Hgb Hct MCH RDW Plt Count Lymph % (Auto) [place] % (Auto) [place] # Baso # Seg Neutrophils % Seg Neuts % (Manual) Lymphocytes % (Manual) Monocytes % (Manual) Seg Neutrophils # Seg Neutrophils # Man Lymphocytes # (Manual) Monocytes # (Manual) Eosinophils # (Manual) Basophils # (Manual) PT INR APTT ABG pH ABG pO2 ABG HCO3 ABG O2 Saturation ABG Base Excess ABG Hemoglobin Oxyhemoglobin Sodium Potassium Chloride Carbon Dioxide BUN Creatinine Glucose POC Glucose 131 H 128 H 134 H Lactic Acid Calcium Ionized Calcium Phosphorus Magnesium Total Bilirubin AST ALT Alkaline Phosphatase Ammonia Total Creatine Kinase CK-MB (CK-2) CK-MB (CK-2) Rel Index Total Protein Albumin Urine WBC (Auto) Vancomycin Trough Salicylates Acetaminophen Plasma/Serum Alcohol Crossmatch 12/21/19 12/21/19 12/21/19 03:28 03:28 07:21 WBC 29.4 H RBC 2.30 L Hgb 6.8 L Hct 20.2 L MCH RDW 20.2 H Plt Count 746 H Lymph % (Auto) [place] % (Auto) [place] # Baso # Seg Neutrophils % Seg Neuts % (Manual) 85.0 H Lymphocytes % (Manual) 8.0 L Monocytes % (Manual) Seg Neutrophils # Seg Neutrophils # Man 25.0 H Lymphocytes # (Manual) Monocytes # (Manual) 1.5 H Eosinophils # (Manual) 0.6 H Basophils # (Manual) PT INR APTT ABG pH ABG pO2 ABG HCO3 ABG O2 Saturation ABG Base Excess ABG Hemoglobin Oxyhemoglobin Sodium Potassium Chloride Carbon Dioxide 17 L BUN 57 H Creatinine 1.4 H D Glucose POC Glucose 124 H Lactic Acid Calcium Ionized Calcium Phosphorus Magnesium Total Bilirubin AST ALT Alkaline Phosphatase Ammonia Total Creatine Kinase CK-MB (CK-2) CK-MB (CK-2) Rel Index Total Protein Albumin Urine WBC (Auto) Vancomycin Trough Salicylates Acetaminophen Plasma/Serum Alcohol Crossmatch 12/21/19 12/21/19 12/21/19 08:56 12:06 14:53 WBC RBC Hgb 7.2 L Hct 22.9 L MCH RDW Plt Count Lymph % (Auto) [place] % (Auto) [place] # Baso # Seg Neutrophils % Seg Neuts % (Manual) Lymphocytes % (Manual) Monocytes % (Manual) Seg Neutrophils # Seg Neutrophils # Man Lymphocytes # (Manual) Monocytes # (Manual) Eosinophils # (Manual) Basophils # (Manual) PT INR APTT ABG pH ABG pO2 ABG HCO3 ABG O2 Saturation ABG Base Excess ABG Hemoglobin Oxyhemoglobin Sodium Potassium Chloride Carbon Dioxide BUN Creatinine Glucose POC Glucose 116 H Lactic Acid Calcium Ionized Calcium Phosphorus Magnesium Total Bilirubin AST ALT Alkaline Phosphatase Ammonia Total Creatine Kinase CK-MB (CK-2) CK-MB (CK-2) Rel Index Total Protein Albumin Urine WBC (Auto) Vancomycin Trough 33.8 H Salicylates Acetaminophen Plasma/Serum Alcohol Crossmatch 12/21/19 12/21/19 12/21/19 14:54 17:27 23:49 WBC RBC Hgb Hct MCH RDW Plt Count Lymph % (Auto) [place] % (Auto) [place] # Baso # Seg Neutrophils % Seg Neuts % (Manual) Lymphocytes % (Manual) Monocytes % (Manual) Seg Neutrophils # Seg Neutrophils # Man Lymphocytes # (Manual) Monocytes # (Manual) Eosinophils # (Manual) Basophils # (Manual) PT INR APTT ABG pH ABG pO2 ABG HCO3 ABG O2 Saturation ABG Base Excess ABG Hemoglobin Oxyhemoglobin Sodium Potassium Chloride Carbon Dioxide BUN Creatinine Glucose POC Glucose 145 H 127 H Lactic Acid Calcium Ionized Calcium Phosphorus Magnesium Total Bilirubin AST ALT Alkaline Phosphatase Ammonia Total Creatine Kinase CK-MB (CK-2) CK-MB (CK-2) Rel Index Total Protein Albumin Urine WBC (Auto) Vancomycin Trough Salicylates Acetaminophen Plasma/Serum Alcohol Crossmatch See Detail 12/22/19 12/22/19 12/22/19 04:43 05:56 08:40 WBC RBC Hgb Hct MCH RDW Plt Count Lymph % (Auto) [place] % (Auto) [place] # Baso # Seg Neutrophils % Seg Neuts % (Manual) Lymphocytes % (Manual) Monocytes % (Manual) Seg Neutrophils # Seg Neutrophils # Man Lymphocytes # (Manual) Monocytes # (Manual) Eosinophils # (Manual) Basophils # (Manual) PT INR APTT ABG pH ABG pO2 75.6 L ABG HCO3 ABG O2 Saturation ABG Base Excess -2.6 L ABG Hemoglobin 6.8 L Oxyhemoglobin 94.6 L Sodium Potassium Chloride Carbon Dioxide 17 L BUN 60 H Creatinine 1.4 H Glucose 126 H POC Glucose 153 H Lactic Acid Calcium Ionized Calcium Phosphorus Magnesium Total Bilirubin AST ALT Alkaline Phosphatase Ammonia Total Creatine Kinase CK-MB (CK-2) CK-MB (CK-2) Rel Index Total Protein Albumin Urine WBC (Auto) Vancomycin Trough Salicylates Acetaminophen Plasma/Serum Alcohol Crossmatch 12/22/19 12/22/19 12/23/19 12:07 17:49 04:30 WBC 22.4 H RBC 2.68 L Hgb 7.6 L Hct 22.9 L MCH RDW 19.9 H Plt Count 998 H Lymph % (Auto) [place] % (Auto) [place] # Baso # Seg Neutrophils % Seg Neuts % (Manual) 88.0 H Lymphocytes % (Manual) 2.0 L Monocytes % (Manual) 9.0 H Seg Neutrophils # Seg Neutrophils # Man 19.7 H Lymphocytes # (Manual) 0.4 L Monocytes # (Manual) 2.0 H Eosinophils # (Manual) Basophils # (Manual) PT INR APTT ABG pH ABG pO2 ABG HCO3 ABG O2 Saturation ABG Base Excess ABG Hemoglobin Oxyhemoglobin Sodium Potassium Chloride Carbon Dioxide BUN Creatinine Glucose POC Glucose 140 H 116 H Lactic Acid Calcium Ionized Calcium Phosphorus Magnesium Total Bilirubin AST ALT Alkaline Phosphatase Ammonia Total Creatine Kinase CK-MB (CK-2) CK-MB (CK-2) Rel Index Total Protein Albumin Urine WBC (Auto) Vancomycin Trough Salicylates Acetaminophen Plasma/Serum Alcohol Crossmatch 12/23/19 12/23/19 12/23/19 04:30 12:00 18:06 WBC RBC Hgb Hct MCH RDW Plt Count Lymph % (Auto) [place] % (Auto) [place] # Baso # Seg Neutrophils % Seg Neuts % (Manual) Lymphocytes % (Manual) Monocytes % (Manual) Seg Neutrophils # Seg Neutrophils # Man Lymphocytes # (Manual) Monocytes # (Manual) Eosinophils # (Manual) Basophils # (Manual) PT INR APTT ABG pH ABG pO2 ABG HCO3 ABG O2 Saturation ABG Base Excess ABG Hemoglobin Oxyhemoglobin Sodium Potassium 5.2 H Chloride Carbon Dioxide 21 L BUN 69 H Creatinine 1.5 H Glucose 117 H POC Glucose 128 H 138 H Lactic Acid Calcium Ionized Calcium Phosphorus Magnesium Total Bilirubin AST ALT Alkaline Phosphatase Ammonia Total Creatine Kinase CK-MB (CK-2) CK-MB (CK-2) Rel Index Total Protein Albumin Urine WBC (Auto) Vancomycin Trough Salicylates Acetaminophen Plasma/Serum Alcohol Crossmatch 12/23/19 12/24/19 12/24/19 23:46 04:31 05:08 WBC RBC Hgb Hct MCH RDW Plt Count Lymph % (Auto) [place] % (Auto) [place] # Baso # Seg Neutrophils % Seg Neuts % (Manual) Lymphocytes % (Manual) Monocytes % (Manual) Seg Neutrophils # Seg Neutrophils # Man Lymphocytes # (Manual) Monocytes # (Manual) Eosinophils # (Manual) Basophils # (Manual) PT INR APTT ABG pH ABG pO2 ABG HCO3 ABG O2 Saturation ABG Base Excess ABG Hemoglobin Oxyhemoglobin Sodium Potassium 5.3 H Chloride 107.6 H Carbon Dioxide 20 L BUN 72 H Creatinine 1.6 H Glucose 120 H POC Glucose 120 H 140 H Lactic Acid Calcium Ionized Calcium Phosphorus Magnesium Total Bilirubin AST ALT Alkaline Phosphatase Ammonia Total Creatine Kinase CK-MB (CK-2) CK-MB (CK-2) Rel Index Total Protein Albumin Urine WBC (Auto) Vancomycin Trough Salicylates Acetaminophen Plasma/Serum Alcohol Crossmatch 12/24/19 12/24/19 12/25/19 11:58 17:49 03:47 WBC 36.2 H RBC 2.92 L Hgb 8.4 L Hct 26.1 L MCH RDW 20.2 H Plt Count 942 H Lymph % (Auto) [place] % (Auto) [place] # Baso # Seg Neutrophils % Seg Neuts % (Manual) 97.5 H Lymphocytes % (Manual) 1.0 L Monocytes % (Manual) Seg Neutrophils # Seg Neutrophils # Man 35.3 H Lymphocytes # (Manual) 0.4 L Monocytes # (Manual) Eosinophils # (Manual) Basophils # (Manual) PT INR APTT ABG pH ABG pO2 ABG HCO3 ABG O2 Saturation ABG Base Excess ABG Hemoglobin Oxyhemoglobin Sodium Potassium Chloride Carbon Dioxide BUN Creatinine Glucose POC Glucose 146 H 131 H Lactic Acid Calcium Ionized Calcium Phosphorus Magnesium Total Bilirubin AST ALT Alkaline Phosphatase Ammonia Total Creatine Kinase CK-MB (CK-2) CK-MB (CK-2) Rel Index Total Protein Albumin Urine WBC (Auto) Vancomycin Trough Salicylates Acetaminophen Plasma/Serum Alcohol Crossmatch 12/25/19 12/25/19 12/25/19 03:47 05:30 12:23 WBC RBC Hgb Hct MCH RDW Plt Count Lymph % (Auto) [place] % (Auto) [place] # Baso # Seg Neutrophils % Seg Neuts % (Manual) Lymphocytes % (Manual) Monocytes % (Manual) Seg Neutrophils # Seg Neutrophils # Man Lymphocytes # (Manual) Monocytes # (Manual) Eosinophils # (Manual) Basophils # (Manual) PT INR APTT ABG pH ABG pO2 ABG HCO3 ABG O2 Saturation ABG Base Excess ABG Hemoglobin Oxyhemoglobin Sodium Potassium Chloride Carbon Dioxide 15 L BUN 70 H Creatinine 1.7 H Glucose 153 H POC Glucose 169 H 135 H Lactic Acid Calcium Ionized Calcium Phosphorus Magnesium Total Bilirubin AST ALT Alkaline Phosphatase Ammonia Total Creatine Kinase CK-MB (CK-2) CK-MB (CK-2) Rel Index Total Protein Albumin Urine WBC (Auto) Vancomycin Trough Salicylates Acetaminophen Plasma/Serum Alcohol Crossmatch 12/25/19 12/25/19 12/26/19 17:37 23:29 09:47 WBC 22.1 H RBC 2.83 L Hgb 7.9 L Hct 25.5 L MCH RDW 20.0 H Plt Count 894 H Lymph % (Auto) [place] % (Auto) [place] # Baso # Seg Neutrophils % Seg Neuts % (Manual) Lymphocytes % (Manual) Monocytes % (Manual) Seg Neutrophils # Seg Neutrophils # Man Lymphocytes # (Manual) Monocytes # (Manual) Eosinophils # (Manual) Basophils # (Manual) PT INR APTT ABG pH ABG pO2 ABG HCO3 ABG O2 Saturation ABG Base Excess ABG Hemoglobin Oxyhemoglobin Sodium Potassium Chloride Carbon Dioxide BUN Creatinine Glucose POC Glucose 120 H 140 H Lactic Acid Calcium Ionized Calcium Phosphorus Magnesium Total Bilirubin AST ALT Alkaline Phosphatase Ammonia Total Creatine Kinase CK-MB (CK-2) CK-MB (CK-2) Rel Index Total Protein Albumin Urine WBC (Auto) Vancomycin Trough Salicylates Acetaminophen Plasma/Serum Alcohol Crossmatch 12/26/19 12/26/19 12/26/19 09:47 11:46 17:52 WBC RBC Hgb Hct MCH RDW Plt Count Lymph % (Auto) [place] % (Auto) [place] # Baso # Seg Neutrophils % Seg Neuts % (Manual) Lymphocytes % (Manual) Monocytes % (Manual) Seg Neutrophils # Seg Neutrophils # Man Lymphocytes # (Manual) Monocytes # (Manual) Eosinophils # (Manual) Basophils # (Manual) PT INR APTT ABG pH ABG pO2 ABG HCO3 ABG O2 Saturation ABG Base Excess ABG Hemoglobin Oxyhemoglobin Sodium Potassium Chloride Carbon Dioxide 18 L BUN 65 H Creatinine 1.4 H Glucose 132 H POC Glucose 110 H 145 H Lactic Acid Calcium Ionized Calcium Phosphorus Magnesium Total Bilirubin AST ALT Alkaline Phosphatase Ammonia Total Creatine Kinase CK-MB (CK-2) CK-MB (CK-2) Rel Index Total Protein Albumin Urine WBC (Auto) Vancomycin Trough Salicylates Acetaminophen Plasma/Serum Alcohol Crossmatch 12/27/19 12/27/19 12/27/19 00:01 03:42 03:42 WBC 18.0 H RBC 2.86 L Hgb 8.0 L Hct 25.2 L MCH RDW 19.2 H Plt Count 873 H Lymph % (Auto) 8.4 L [place] % (Auto) 7.5 H [place] # 1.4 H Baso # 0.2 H Seg Neutrophils % 82.2 H Seg Neuts % (Manual) Lymphocytes % (Manual) Monocytes % (Manual) Seg Neutrophils # 14.8 H Seg Neutrophils # Man Lymphocytes # (Manual) Monocytes # (Manual) Eosinophils # (Manual) Basophils # (Manual) PT INR APTT ABG pH ABG pO2 ABG HCO3 ABG O2 Saturation ABG Base Excess ABG Hemoglobin Oxyhemoglobin Sodium Potassium Chloride Carbon Dioxide BUN 73 H Creatinine 1.4 H Glucose 119 H POC Glucose 124 H Lactic Acid Calcium Ionized Calcium Phosphorus Magnesium Total Bilirubin AST ALT Alkaline Phosphatase Ammonia Total Creatine Kinase CK-MB (CK-2) CK-MB (CK-2) Rel Index Total Protein Albumin Urine WBC (Auto) Vancomycin Trough Salicylates Acetaminophen Plasma/Serum Alcohol Crossmatch 12/27/19 12/27/19 12/27/19 05:45 11:45 17:29 WBC RBC Hgb Hct MCH RDW Plt Count Lymph % (Auto) [place] % (Auto) [place] # Baso # Seg Neutrophils % Seg Neuts % (Manual) Lymphocytes % (Manual) Monocytes % (Manual) Seg Neutrophils # Seg Neutrophils # Man Lymphocytes # (Manual) Monocytes # (Manual) Eosinophils # (Manual) Basophils # (Manual) PT INR APTT ABG pH ABG pO2 ABG HCO3 ABG O2 Saturation ABG Base Excess ABG Hemoglobin Oxyhemoglobin Sodium Potassium Chloride Carbon Dioxide BUN Creatinine Glucose POC Glucose 131 H 123 H 134 H Lactic Acid Calcium Ionized Calcium Phosphorus Magnesium Total Bilirubin AST ALT Alkaline Phosphatase Ammonia Total Creatine Kinase CK-MB (CK-2) CK-MB (CK-2) Rel Index Total Protein Albumin Urine WBC (Auto) Vancomycin Trough Salicylates Acetaminophen Plasma/Serum Alcohol Crossmatch 12/28/19 12/28/19 12/28/19 00:12 05:14 11:53 WBC RBC Hgb Hct MCH RDW Plt Count Lymph % (Auto) [place] % (Auto) [place] # Baso # Seg Neutrophils % Seg Neuts % (Manual) Lymphocytes % (Manual) Monocytes % (Manual) Seg Neutrophils # Seg Neutrophils # Man Lymphocytes # (Manual) Monocytes # (Manual) Eosinophils # (Manual) Basophils # (Manual) PT INR APTT ABG pH ABG pO2 ABG HCO3 ABG O2 Saturation ABG Base Excess ABG Hemoglobin Oxyhemoglobin Sodium Potassium Chloride Carbon Dioxide BUN Creatinine Glucose POC Glucose 138 H 130 H 146 H Lactic Acid Calcium Ionized Calcium Phosphorus Magnesium Total Bilirubin AST ALT Alkaline Phosphatase Ammonia Total Creatine Kinase CK-MB (CK-2) CK-MB (CK-2) Rel Index Total Protein Albumin Urine WBC (Auto) Vancomycin Trough Salicylates Acetaminophen Plasma/Serum Alcohol Crossmatch 12/28/19 12/29/19 12/29/19 17:39 00:01 18:11 WBC RBC Hgb Hct MCH RDW Plt Count Lymph % (Auto) [place] % (Auto) [place] # Baso # Seg Neutrophils % Seg Neuts % (Manual) Lymphocytes % (Manual) Monocytes % (Manual) Seg Neutrophils # Seg Neutrophils # Man Lymphocytes # (Manual) Monocytes # (Manual) Eosinophils # (Manual) Basophils # (Manual) PT INR APTT ABG pH ABG pO2 ABG HCO3 ABG O2 Saturation ABG Base Excess ABG Hemoglobin Oxyhemoglobin Sodium Potassium Chloride Carbon Dioxide BUN Creatinine Glucose POC Glucose 117 H 139 H 130 H Lactic Acid Calcium Ionized Calcium Phosphorus Magnesium Total Bilirubin AST ALT Alkaline Phosphatase Ammonia Total Creatine Kinase CK-MB (CK-2) CK-MB (CK-2) Rel Index Total Protein Albumin Urine WBC (Auto) Vancomycin Trough Salicylates Acetaminophen Plasma/Serum Alcohol Crossmatch 12/29/19 12/30/19 12/30/19 23:09 00:02 01:06 WBC 16.7 H RBC 2.91 L Hgb 8.2 L Hct 25.4 L MCH RDW 18.7 H Plt Count 708 H Lymph % (Auto) 9.4 L [place] % (Auto) [place] # 0.9 H Baso # Seg Neutrophils % 83.5 H Seg Neuts % (Manual) Lymphocytes % (Manual) Monocytes % (Manual) Seg Neutrophils # 14.0 H Seg Neutrophils # Man Lymphocytes # (Manual) Monocytes # (Manual) Eosinophils # (Manual) Basophils # (Manual) PT INR APTT ABG pH ABG pO2 ABG HCO3 ABG O2 Saturation ABG Base Excess ABG Hemoglobin Oxyhemoglobin Sodium Potassium Chloride Carbon Dioxide BUN Creatinine Glucose POC Glucose 120 H 114 H Lactic Acid Calcium Ionized Calcium Phosphorus Magnesium Total Bilirubin AST ALT Alkaline Phosphatase Ammonia Total Creatine Kinase CK-MB (CK-2) CK-MB (CK-2) Rel Index Total Protein Albumin Urine WBC (Auto) Vancomycin Trough Salicylates Acetaminophen Plasma/Serum Alcohol Crossmatch 12/30/19 12/30/19 12/30/19 01:06 04:23 05:18 WBC RBC Hgb Hct MCH RDW Plt Count Lymph % (Auto) [place] % (Auto) [place] # Baso # Seg Neutrophils % Seg Neuts % (Manual) Lymphocytes % (Manual) Monocytes % (Manual) Seg Neutrophils # Seg Neutrophils # Man Lymphocytes # (Manual) Monocytes # (Manual) Eosinophils # (Manual) Basophils # (Manual) PT INR APTT ABG pH ABG pO2 ABG HCO3 ABG O2 Saturation ABG Base Excess ABG Hemoglobin 8.3 L Oxyhemoglobin Sodium Potassium Chloride Carbon Dioxide BUN 70 H Creatinine Glucose 122 H POC Glucose 130 H Lactic Acid Calcium Ionized Calcium Phosphorus Magnesium Total Bilirubin AST ALT Alkaline Phosphatase Ammonia Total Creatine Kinase CK-MB (CK-2) CK-MB (CK-2) Rel Index Total Protein Albumin Urine WBC (Auto) Vancomycin Trough Salicylates Acetaminophen Plasma/Serum Alcohol Crossmatch 12/30/19 12/30/19 12/30/19 05:40 12:17 17:43 WBC RBC Hgb Hct MCH RDW Plt Count Lymph % (Auto) [place] % (Auto) [place] # Baso # Seg Neutrophils % Seg Neuts % (Manual) Lymphocytes % (Manual) Monocytes % (Manual) Seg Neutrophils # Seg Neutrophils # Man Lymphocytes # (Manual) Monocytes # (Manual) Eosinophils # (Manual) Basophils # (Manual) PT INR APTT ABG pH ABG pO2 ABG HCO3 ABG O2 Saturation ABG Base Excess ABG Hemoglobin Oxyhemoglobin Sodium Potassium Chloride Carbon Dioxide BUN Creatinine Glucose POC Glucose 135 H 132 H 118 H Lactic Acid Calcium Ionized Calcium Phosphorus Magnesium Total Bilirubin AST ALT Alkaline Phosphatase Ammonia Total Creatine Kinase CK-MB (CK-2) CK-MB (CK-2) Rel Index Total Protein Albumin Urine WBC (Auto) Vancomycin Trough Salicylates Acetaminophen Plasma/Serum Alcohol Crossmatch 12/30/19 12/31/19 12/31/19 23:29 05:19 17:50 WBC RBC Hgb Hct MCH RDW Plt Count Lymph % (Auto) [place] % (Auto) [place] # Baso # Seg Neutrophils % Seg Neuts % (Manual) Lymphocytes % (Manual) Monocytes % (Manual) Seg Neutrophils # Seg Neutrophils # Man Lymphocytes # (Manual) Monocytes # (Manual) Eosinophils # (Manual) Basophils # (Manual) PT INR APTT ABG pH ABG pO2 ABG HCO3 ABG O2 Saturation ABG Base Excess ABG Hemoglobin Oxyhemoglobin Sodium Potassium Chloride Carbon Dioxide BUN Creatinine Glucose POC Glucose 114 H 109 H 116 H Lactic Acid Calcium Ionized Calcium Phosphorus Magnesium Total Bilirubin AST ALT Alkaline Phosphatase Ammonia Total Creatine Kinase CK-MB (CK-2) CK-MB (CK-2) Rel Index Total Protein Albumin Urine WBC (Auto) Vancomycin Trough Salicylates Acetaminophen Plasma/Serum Alcohol Crossmatch 01/01/20 01/01/20 01/01/20 00:10 05:19 12:02 WBC RBC Hgb Hct MCH RDW Plt Count Lymph % (Auto) [place] % (Auto) [place] # Baso # Seg Neutrophils % Seg Neuts % (Manual) Lymphocytes % (Manual) Monocytes % (Manual) Seg Neutrophils # Seg Neutrophils # Man Lymphocytes # (Manual) Monocytes # (Manual) Eosinophils # (Manual) Basophils # (Manual) PT INR APTT ABG pH ABG pO2 ABG HCO3 ABG O2 Saturation ABG Base Excess ABG Hemoglobin Oxyhemoglobin Sodium Potassium Chloride Carbon Dioxide BUN Creatinine Glucose POC Glucose 131 H 122 H 136 H Lactic Acid Calcium Ionized Calcium Phosphorus Magnesium Total Bilirubin AST ALT Alkaline Phosphatase Ammonia Total Creatine Kinase CK-MB (CK-2) CK-MB (CK-2) Rel Index Total Protein Albumin Urine WBC (Auto) Vancomycin Trough Salicylates Acetaminophen Plasma/Serum Alcohol Crossmatch 01/02/20 01/02/20 01/02/20 00:24 05:36 11:41 WBC RBC Hgb Hct MCH RDW Plt Count Lymph % (Auto) [place] % (Auto) [place] # Baso # Seg Neutrophils % Seg Neuts % (Manual) Lymphocytes % (Manual) Monocytes % (Manual) Seg Neutrophils # Seg Neutrophils # Man Lymphocytes # (Manual) Monocytes # (Manual) Eosinophils # (Manual) Basophils # (Manual) PT INR APTT ABG pH ABG pO2 ABG HCO3 ABG O2 Saturation ABG Base Excess ABG Hemoglobin Oxyhemoglobin Sodium Potassium Chloride Carbon Dioxide BUN Creatinine Glucose POC Glucose 119 H 109 H 125 H Lactic Acid Calcium Ionized Calcium Phosphorus Magnesium Total Bilirubin AST ALT Alkaline Phosphatase Ammonia Total Creatine Kinase CK-MB (CK-2) CK-MB (CK-2) Rel Index Total Protein Albumin Urine WBC (Auto) Vancomycin Trough Salicylates Acetaminophen Plasma/Serum Alcohol Crossmatch 01/02/20 01/03/20 01/03/20 17:49 05:29 12:13 WBC RBC Hgb Hct MCH RDW Plt Count Lymph % (Auto) [place] % (Auto) [place] # Baso # Seg Neutrophils % Seg Neuts % (Manual) Lymphocytes % (Manual) Monocytes % (Manual) Seg Neutrophils # Seg Neutrophils # Man Lymphocytes # (Manual) Monocytes # (Manual) Eosinophils # (Manual) Basophils # (Manual) PT INR APTT ABG pH ABG pO2 ABG HCO3 ABG O2 Saturation ABG Base Excess ABG Hemoglobin Oxyhemoglobin Sodium Potassium Chloride Carbon Dioxide BUN Creatinine Glucose POC Glucose 130 H 132 H 113 H Lactic Acid Calcium Ionized Calcium Phosphorus Magnesium Total Bilirubin AST ALT Alkaline Phosphatase Ammonia Total Creatine Kinase CK-MB (CK-2) CK-MB (CK-2) Rel Index Total Protein Albumin Urine WBC (Auto) Vancomycin Trough Salicylates Acetaminophen Plasma/Serum Alcohol Crossmatch 01/03/20 01/04/20 01/04/20 17:32 00:19 05:26 WBC RBC Hgb Hct MCH RDW Plt Count Lymph % (Auto) [place] % (Auto) [place] # Baso # Seg Neutrophils % Seg Neuts % (Manual) Lymphocytes % (Manual) Monocytes % (Manual) Seg Neutrophils # Seg Neutrophils # Man Lymphocytes # (Manual) Monocytes # (Manual) Eosinophils # (Manual) Basophils # (Manual) PT INR APTT ABG pH ABG pO2 ABG HCO3 ABG O2 Saturation ABG Base Excess ABG Hemoglobin Oxyhemoglobin Sodium Potassium Chloride Carbon Dioxide BUN Creatinine Glucose POC Glucose 127 H 141 H 129 H Lactic Acid Calcium Ionized Calcium Phosphorus Magnesium Total Bilirubin AST ALT Alkaline Phosphatase Ammonia Total Creatine Kinase CK-MB (CK-2) CK-MB (CK-2) Rel Index Total Protein Albumin Urine WBC (Auto) Vancomycin Trough Salicylates Acetaminophen Plasma/Serum Alcohol Crossmatch 01/04/20 01/04/20 01/05/20 11:39 17:29 05:22 WBC RBC Hgb Hct MCH RDW Plt Count Lymph % (Auto) [place] % (Auto) [place] # Baso # Seg Neutrophils % Seg Neuts % (Manual) Lymphocytes % (Manual) Monocytes % (Manual) Seg Neutrophils # Seg Neutrophils # Man Lymphocytes # (Manual) Monocytes # (Manual) Eosinophils # (Manual) Basophils # (Manual) PT INR APTT ABG pH ABG pO2 ABG HCO3 ABG O2 Saturation ABG Base Excess ABG Hemoglobin Oxyhemoglobin Sodium Potassium Chloride Carbon Dioxide BUN Creatinine Glucose POC Glucose 167 H 132 H 121 H Lactic Acid Calcium Ionized Calcium Phosphorus Magnesium Total Bilirubin AST ALT Alkaline Phosphatase Ammonia Total Creatine Kinase CK-MB (CK-2) CK-MB (CK-2) Rel Index Total Protein Albumin Urine WBC (Auto) Vancomycin Trough Salicylates Acetaminophen Plasma/Serum Alcohol Crossmatch 01/05/20 01/05/20 01/05/20 12:25 17:40 18:06 WBC RBC Hgb Hct MCH RDW Plt Count Lymph % (Auto) [place] % (Auto) [place] # Baso # Seg Neutrophils % Seg Neuts % (Manual) Lymphocytes % (Manual) Monocytes % (Manual) Seg Neutrophils # Seg Neutrophils # Man Lymphocytes # (Manual) Monocytes # (Manual) Eosinophils # (Manual) Basophils # (Manual) PT INR APTT ABG pH 7.472 H ABG pO2 99.2 H ABG HCO3 ABG O2 Saturation ABG Base Excess ABG Hemoglobin 7.8 L Oxyhemoglobin Sodium Potassium Chloride Carbon Dioxide BUN Creatinine Glucose POC Glucose 106 H 110 H Lactic Acid Calcium Ionized Calcium Phosphorus Magnesium Total Bilirubin AST ALT Alkaline Phosphatase Ammonia Total Creatine Kinase CK-MB (CK-2) CK-MB (CK-2) Rel Index Total Protein Albumin Urine WBC (Auto) Vancomycin Trough Salicylates Acetaminophen Plasma/Serum Alcohol Crossmatch 01/06/20 01/06/20 01/06/20 00:11 05:16 11:30 WBC RBC Hgb Hct MCH RDW Plt Count Lymph % (Auto) [place] % (Auto) [place] # Baso # Seg Neutrophils % Seg Neuts % (Manual) Lymphocytes % (Manual) Monocytes % (Manual) Seg Neutrophils # Seg Neutrophils # Man Lymphocytes # (Manual) Monocytes # (Manual) Eosinophils # (Manual) Basophils # (Manual) PT INR APTT ABG pH ABG pO2 ABG HCO3 ABG O2 Saturation ABG Base Excess ABG Hemoglobin Oxyhemoglobin Sodium Potassium Chloride Carbon Dioxide BUN Creatinine Glucose POC Glucose 108 H 124 H 125 H Lactic Acid Calcium Ionized Calcium Phosphorus Magnesium Total Bilirubin AST ALT Alkaline Phosphatase Ammonia Total Creatine Kinase CK-MB (CK-2) CK-MB (CK-2) Rel Index Total Protein Albumin Urine WBC (Auto) Vancomycin Trough Salicylates Acetaminophen Plasma/Serum Alcohol Crossmatch 01/06/20 01/06/20 01/07/20 17:53 23:51 04:12 WBC 16.5 H RBC 3.29 L Hgb 9.3 L Hct 28.1 L MCH RDW 18.2 H Plt Count 526 H Lymph % (Auto) 8.4 L [place] % (Auto) [place] # 1.0 H Baso # Seg Neutrophils % 84.4 H Seg Neuts % (Manual) Lymphocytes % (Manual) Monocytes % (Manual) Seg Neutrophils # 13.9 H Seg Neutrophils # Man Lymphocytes # (Manual) Monocytes # (Manual) Eosinophils # (Manual) Basophils # (Manual) PT INR APTT ABG pH ABG pO2 ABG HCO3 ABG O2 Saturation ABG Base Excess ABG Hemoglobin Oxyhemoglobin Sodium Potassium Chloride Carbon Dioxide BUN Creatinine Glucose POC Glucose 166 H 128 H Lactic Acid Calcium Ionized Calcium Phosphorus Magnesium Total Bilirubin AST ALT Alkaline Phosphatase Ammonia Total Creatine Kinase CK-MB (CK-2) CK-MB (CK-2) Rel Index Total Protein Albumin Urine WBC (Auto) Vancomycin Trough Salicylates Acetaminophen Plasma/Serum Alcohol Crossmatch 01/07/20 01/07/20 01/07/20 04:12 04:45 11:51 WBC RBC Hgb Hct MCH RDW Plt Count Lymph % (Auto) [place] % (Auto) [place] # Baso # Seg Neutrophils % Seg Neuts % (Manual) Lymphocytes % (Manual) Monocytes % (Manual) Seg Neutrophils # Seg Neutrophils # Man Lymphocytes # (Manual) Monocytes # (Manual) Eosinophils # (Manual) Basophils # (Manual) PT INR APTT ABG pH ABG pO2 ABG HCO3 ABG O2 Saturation ABG Base Excess ABG Hemoglobin Oxyhemoglobin Sodium 136 L Potassium Chloride Carbon Dioxide 21 L BUN 44 H Creatinine 0.6 L Glucose 124 H POC Glucose 134 H 138 H Lactic Acid Calcium Ionized Calcium Phosphorus Magnesium Total Bilirubin AST ALT Alkaline Phosphatase Ammonia Total Creatine Kinase CK-MB (CK-2) CK-MB (CK-2) Rel Index Total Protein Albumin Urine WBC (Auto) Vancomycin Trough Salicylates Acetaminophen Plasma/Serum Alcohol Crossmatch 01/07/20 01/08/20 01/08/20 17:36 00:33 05:29 WBC RBC Hgb Hct MCH RDW Plt Count Lymph % (Auto) [place] % (Auto) [place] # Baso # Seg Neutrophils % Seg Neuts % (Manual) Lymphocytes % (Manual) Monocytes % (Manual) Seg Neutrophils # Seg Neutrophils # Man Lymphocytes # (Manual) Monocytes # (Manual) Eosinophils # (Manual) Basophils # (Manual) PT INR APTT ABG pH ABG pO2 ABG HCO3 ABG O2 Saturation ABG Base Excess ABG Hemoglobin Oxyhemoglobin Sodium Potassium Chloride Carbon Dioxide BUN Creatinine Glucose POC Glucose 128 H 119 H 124 H Lactic Acid Calcium Ionized Calcium Phosphorus Magnesium Total Bilirubin AST ALT Alkaline Phosphatase Ammonia Total Creatine Kinase CK-MB (CK-2) CK-MB (CK-2) Rel Index Total Protein Albumin Urine WBC (Auto) Vancomycin Trough Salicylates Acetaminophen Plasma/Serum Alcohol Crossmatch 01/08/20 01/08/20 01/08/20 12:51 20:25 23:22 WBC RBC Hgb Hct MCH RDW Plt Count Lymph % (Auto) [place] % (Auto) [place] # Baso # Seg Neutrophils % Seg Neuts % (Manual) Lymphocytes % (Manual) Monocytes % (Manual) Seg Neutrophils # Seg Neutrophils # Man Lymphocytes # (Manual) Monocytes # (Manual) Eosinophils # (Manual) Basophils # (Manual) PT INR APTT ABG pH ABG pO2 132.2 H ABG HCO3 ABG O2 Saturation ABG Base Excess ABG Hemoglobin Oxyhemoglobin Sodium Potassium Chloride Carbon Dioxide BUN Creatinine Glucose POC Glucose 128 H 127 H Lactic Acid Calcium Ionized Calcium Phosphorus Magnesium Total Bilirubin AST ALT Alkaline Phosphatase Ammonia Total Creatine Kinase CK-MB (CK-2) CK-MB (CK-2) Rel Index Total Protein Albumin Urine WBC (Auto) Vancomycin Trough Salicylates Acetaminophen Plasma/Serum Alcohol Crossmatch 01/09/20 01/09/2001/08/20 05:48 08:51 11:29 WBC RBC Hgb Hct MCH RDW Plt Count Lymph % (Auto) [place] % (Auto) [place] # Baso # Seg Neutrophils % Seg Neuts % (Manual) Lymphocytes % (Manual) Monocytes % (Manual) Seg Neutrophils # Seg Neutrophils # Man Lymphocytes # (Manual) Monocytes # (Manual) Eosinophils # (Manual) Basophils # (Manual) PT INR APTT ABG pH ABG pO2 94.3 H ABG HCO3 ABG O2 Saturation ABG Base Excess ABG Hemoglobin 9.5 L Oxyhemoglobin Sodium Potassium Chloride Carbon Dioxide BUN Creatinine Glucose POC Glucose 120 H 112 H Lactic Acid Calcium Ionized Calcium Phosphorus Magnesium Total Bilirubin AST ALT Alkaline Phosphatase Ammonia Total Creatine Kinase CK-MB (CK-2) CK-MB (CK-2) Rel Index Total Protein Albumin Urine WBC (Auto) Vancomycin Trough Salicylates Acetaminophen Plasma/Serum Alcohol Crossmatch 01/09/20 01/10/20 01/10/20 17:57 05:17 12:28 WBC RBC Hgb Hct MCH RDW Plt Count Lymph % (Auto) [place] % (Auto) [place] # Baso # Seg Neutrophils % Seg Neuts % (Manual) Lymphocytes % (Manual) Monocytes % (Manual) Seg Neutrophils # Seg Neutrophils # Man Lymphocytes # (Manual) Monocytes # (Manual) Eosinophils # (Manual) Basophils # (Manual) PT INR APTT ABG pH ABG pO2 ABG HCO3 ABG O2 Saturation ABG Base Excess ABG Hemoglobin Oxyhemoglobin Sodium Potassium Chloride Carbon Dioxide BUN Creatinine Glucose POC Glucose 122 H 115 H 116 H Lactic Acid Calcium Ionized Calcium Phosphorus Magnesium Total Bilirubin AST ALT Alkaline Phosphatase Ammonia Total Creatine Kinase CK-MB (CK-2) CK-MB (CK-2) Rel Index Total Protein Albumin Urine WBC (Auto) Vancomycin Trough Salicylates Acetaminophen Plasma/Serum Alcohol Crossmatch 01/10/20 01/10/20 01/11/20 18:25 23:47 06:05 WBC RBC Hgb Hct MCH RDW Plt Count Lymph % (Auto) [place] % (Auto) [place] # Baso # Seg Neutrophils % Seg Neuts % (Manual) Lymphocytes % (Manual) Monocytes % (Manual) Seg Neutrophils # Seg Neutrophils # Man Lymphocytes # (Manual) Monocytes # (Manual) Eosinophils # (Manual) Basophils # (Manual) PT INR APTT ABG pH ABG pO2 ABG HCO3 ABG O2 Saturation ABG Base Excess ABG Hemoglobin Oxyhemoglobin Sodium Potassium Chloride Carbon Dioxide BUN Creatinine Glucose POC Glucose 123 H 115 H 151 H Lactic Acid Calcium Ionized Calcium Phosphorus Magnesium Total Bilirubin AST ALT Alkaline Phosphatase Ammonia Total Creatine Kinase CK-MB (CK-2) CK-MB (CK-2) Rel Index Total Protein Albumin Urine WBC (Auto) Vancomycin Trough Salicylates Acetaminophen Plasma/Serum Alcohol Crossmatch 01/11/20 01/11/20 01/11/20 07:00 07:00 12:27 WBC 11.8 H RBC 3.40 L Hgb 9.4 L Hct 29.3 L MCH RDW 18.1 H Plt Count 549 H Lymph % (Auto) [place] % (Auto) 9.1 H [place] # 1.1 H Baso # Seg Neutrophils % 73.3 H Seg Neuts % (Manual) Lymphocytes % (Manual) Monocytes % (Manual) Seg Neutrophils # 8.7 H Seg Neutrophils # Man Lymphocytes # (Manual) Monocytes # (Manual) Eosinophils # (Manual) Basophils # (Manual) PT INR APTT ABG pH ABG pO2 ABG HCO3 ABG O2 Saturation ABG Base Excess ABG Hemoglobin Oxyhemoglobin Sodium 134 L Potassium Chloride 97.7 L Carbon Dioxide 21 L BUN 38 H Creatinine 0.5 L Glucose 168 H POC Glucose 117 H Lactic Acid Calcium 10.5 H Ionized Calcium Phosphorus Magnesium Total Bilirubin AST ALT Alkaline Phosphatase Ammonia Total Creatine Kinase CK-MB (CK-2) CK-MB (CK-2) Rel Index Total Protein Albumin Urine WBC (Auto) Vancomycin Trough Salicylates Acetaminophen Plasma/Serum Alcohol Crossmatch 01/11/20 01/12/20 01/12/20 18:19 00:53 05:24 WBC RBC Hgb Hct MCH RDW Plt Count Lymph % (Auto) [place] % (Auto) [place] # Baso # Seg Neutrophils % Seg Neuts % (Manual) Lymphocytes % (Manual) Monocytes % (Manual) Seg Neutrophils # Seg Neutrophils # Man Lymphocytes # (Manual) Monocytes # (Manual) Eosinophils # (Manual) Basophils # (Manual) PT INR APTT ABG pH ABG pO2 ABG HCO3 ABG O2 Saturation ABG Base Excess ABG Hemoglobin Oxyhemoglobin Sodium Potassium Chloride Carbon Dioxide BUN Creatinine Glucose POC Glucose 126 H 126 H 128 H Lactic Acid Calcium Ionized Calcium Phosphorus Magnesium Total Bilirubin AST ALT Alkaline Phosphatase Ammonia Total Creatine Kinase CK-MB (CK-2) CK-MB (CK-2) Rel Index Total Protein Albumin Urine WBC (Auto) Vancomycin Trough Salicylates Acetaminophen Plasma/Serum Alcohol Crossmatch 01/12/20 01/12/20 01/13/20 13:39 18:02 00:27 WBC RBC Hgb Hct MCH RDW Plt Count Lymph % (Auto) [place] % (Auto) [place] # Baso # Seg Neutrophils % Seg Neuts % (Manual) Lymphocytes % (Manual) Monocytes % (Manual) Seg Neutrophils # Seg Neutrophils # Man Lymphocytes # (Manual) Monocytes # (Manual) Eosinophils # (Manual) Basophils # (Manual) PT INR APTT ABG pH ABG pO2 ABG HCO3 ABG O2 Saturation ABG Base Excess ABG Hemoglobin Oxyhemoglobin Sodium Potassium Chloride Carbon Dioxide BUN Creatinine Glucose POC Glucose 146 H 125 H 131 H Lactic Acid Calcium Ionized Calcium Phosphorus Magnesium Total Bilirubin AST ALT Alkaline Phosphatase Ammonia Total Creatine Kinase CK-MB (CK-2) CK-MB (CK-2) Rel Index Total Protein Albumin Urine WBC (Auto) Vancomycin Trough Salicylates Acetaminophen Plasma/Serum Alcohol Crossmatch 01/13/20 01/13/20 01/13/20 05:44 11:54 17:18 WBC RBC Hgb Hct MCH RDW Plt Count Lymph % (Auto) [place] % (Auto) [place] # Baso # Seg Neutrophils % Seg Neuts % (Manual) Lymphocytes % (Manual) Monocytes % (Manual) Seg Neutrophils # Seg Neutrophils # Man Lymphocytes # (Manual) Monocytes # (Manual) Eosinophils # (Manual) Basophils # (Manual) PT INR APTT ABG pH ABG pO2 ABG HCO3 ABG O2 Saturation ABG Base Excess ABG Hemoglobin Oxyhemoglobin Sodium Potassium Chloride Carbon Dioxide BUN Creatinine Glucose POC Glucose 148 H 140 H 130 H Lactic Acid Calcium Ionized Calcium Phosphorus Magnesium Total Bilirubin AST ALT Alkaline Phosphatase Ammonia Total Creatine Kinase CK-MB (CK-2) CK-MB (CK-2) Rel Index Total Protein Albumin Urine WBC (Auto) Vancomycin Trough Salicylates Acetaminophen Plasma/Serum Alcohol Crossmatch 01/14/20 01/14/20 01/14/20 00:16 05:45 12:19 WBC RBC Hgb Hct MCH RDW Plt Count Lymph % (Auto) [place] % (Auto) [place] # Baso # Seg Neutrophils % Seg Neuts % (Manual) Lymphocytes % (Manual) Monocytes % (Manual) Seg Neutrophils # Seg Neutrophils # Man Lymphocytes # (Manual) Monocytes # (Manual) Eosinophils # (Manual) Basophils # (Manual) PT INR APTT ABG pH ABG pO2 ABG HCO3 ABG O2 Saturation ABG Base Excess ABG Hemoglobin Oxyhemoglobin Sodium Potassium Chloride Carbon Dioxide BUN Creatinine Glucose POC Glucose 125 H 146 H 147 H Lactic Acid Calcium Ionized Calcium Phosphorus Magnesium Total Bilirubin AST ALT Alkaline Phosphatase Ammonia Total Creatine Kinase CK-MB (CK-2) CK-MB (CK-2) Rel Index Total Protein Albumin Urine WBC (Auto) Vancomycin Trough Salicylates Acetaminophen Plasma/Serum Alcohol Crossmatch 01/14/20 01/14/20 01/15/20 18:10 23:54 05:14 WBC RBC Hgb Hct MCH RDW Plt Count Lymph % (Auto) [place] % (Auto) [place] # Baso # Seg Neutrophils % Seg Neuts % (Manual) Lymphocytes % (Manual) Monocytes % (Manual) Seg Neutrophils # Seg Neutrophils # Man Lymphocytes # (Manual) Monocytes # (Manual) Eosinophils # (Manual) Basophils # (Manual) PT INR APTT ABG pH ABG pO2 ABG HCO3 ABG O2 Saturation ABG Base Excess ABG Hemoglobin Oxyhemoglobin Sodium Potassium Chloride Carbon Dioxide BUN Creatinine Glucose POC Glucose 136 H 109 H 111 H Lactic Acid Calcium Ionized Calcium Phosphorus Magnesium Total Bilirubin AST ALT Alkaline Phosphatase Ammonia Total Creatine Kinase CK-MB (CK-2) CK-MB (CK-2) Rel Index Total Protein Albumin Urine WBC (Auto) Vancomycin Trough Salicylates Acetaminophen Plasma/Serum Alcohol Crossmatch 01/15/20 01/15/20 01/16/20 12:34 23:25 05:06 WBC RBC Hgb Hct MCH RDW Plt Count Lymph % (Auto) [place] % (Auto) [place] # Baso # Seg Neutrophils % Seg Neuts % (Manual) Lymphocytes % (Manual) Monocytes % (Manual) Seg Neutrophils # Seg Neutrophils # Man Lymphocytes # (Manual) Monocytes # (Manual) Eosinophils # (Manual) Basophils # (Manual) PT INR APTT ABG pH ABG pO2 ABG HCO3 ABG O2 Saturation ABG Base Excess ABG Hemoglobin Oxyhemoglobin Sodium Potassium Chloride Carbon Dioxide BUN Creatinine Glucose POC Glucose 131 H 120 H 121 H Lactic Acid Calcium Ionized Calcium Phosphorus Magnesium Total Bilirubin AST ALT Alkaline Phosphatase Ammonia Total Creatine Kinase CK-MB (CK-2) CK-MB (CK-2) Rel Index Total Protein Albumin Urine WBC (Auto) Vancomycin Trough Salicylates Acetaminophen Plasma/Serum Alcohol Crossmatch 01/16/20 01/16/20 01/17/20 12:15 23:46 05:32 WBC 13.6 H RBC 3.27 L Hgb 9.3 L Hct 28.5 L MCH RDW 17.0 H Plt Count 490 H Lymph % (Auto) 13.1 L [place] % (Auto) [place] # 1.0 H Baso # Seg Neutrophils % 77.5 H Seg Neuts % (Manual) Lymphocytes % (Manual) Monocytes % (Manual) Seg Neutrophils # 10.5 H Seg Neutrophils # Man Lymphocytes # (Manual) Monocytes # (Manual) Eosinophils # (Manual) Basophils # (Manual) PT INR APTT ABG pH ABG pO2 ABG HCO3 ABG O2 Saturation ABG Base Excess ABG Hemoglobin Oxyhemoglobin Sodium Potassium Chloride Carbon Dioxide BUN Creatinine Glucose POC Glucose 152 H 107 H Lactic Acid Calcium Ionized Calcium Phosphorus Magnesium Total Bilirubin AST ALT Alkaline Phosphatase Ammonia Total Creatine Kinase CK-MB (CK-2) CK-MB (CK-2) Rel Index Total Protein Albumin Urine WBC (Auto) Vancomycin Trough Salicylates Acetaminophen Plasma/Serum Alcohol Crossmatch 01/17/20 01/17/20 01/17/20 06:47 12:16 17:21 WBC RBC Hgb Hct MCH RDW Plt Count Lymph % (Auto) [place] % (Auto) [place] # Baso # Seg Neutrophils % Seg Neuts % (Manual) Lymphocytes % (Manual) Monocytes % (Manual) Seg Neutrophils # Seg Neutrophils # Man Lymphocytes # (Manual) Monocytes # (Manual) Eosinophils # (Manual) Basophils # (Manual) PT INR APTT ABG pH ABG pO2 ABG HCO3 ABG O2 Saturation ABG Base Excess ABG Hemoglobin Oxyhemoglobin Sodium Potassium Chloride Carbon Dioxide BUN Creatinine Glucose POC Glucose 112 H 145 H 150 H Lactic Acid Calcium Ionized Calcium Phosphorus Magnesium Total Bilirubin AST ALT Alkaline Phosphatase Ammonia Total Creatine Kinase CK-MB (CK-2) CK-MB (CK-2) Rel Index Total Protein Albumin Urine WBC (Auto) Vancomycin Trough Salicylates Acetaminophen Plasma/Serum Alcohol Crossmatch 01/17/20 01/18/20 01/18/20 23:34 05:47 12:43 WBC RBC Hgb Hct MCH RDW Plt Count Lymph % (Auto) [place] % (Auto) [place] # Baso # Seg Neutrophils % Seg Neuts % (Manual) Lymphocytes % (Manual) Monocytes % (Manual) Seg Neutrophils # Seg Neutrophils # Man Lymphocytes # (Manual) Monocytes # (Manual) Eosinophils # (Manual) Basophils # (Manual) PT INR APTT ABG pH ABG pO2 ABG HCO3 ABG O2 Saturation ABG Base Excess ABG Hemoglobin Oxyhemoglobin Sodium Potassium Chloride Carbon Dioxide BUN Creatinine Glucose POC Glucose 160 H 130 H 124 H Lactic Acid Calcium Ionized Calcium Phosphorus Magnesium Total Bilirubin AST ALT Alkaline Phosphatase Ammonia Total Creatine Kinase CK-MB (CK-2) CK-MB (CK-2) Rel Index Total Protein Albumin Urine WBC (Auto) Vancomycin Trough Salicylates Acetaminophen Plasma/Serum Alcohol Crossmatch 01/18/20 01/19/20 01/19/20 18:26 00:14 06:24 WBC RBC Hgb Hct MCH RDW Plt Count Lymph % (Auto) [place] % (Auto) [place] # Baso # Seg Neutrophils % Seg Neuts % (Manual) Lymphocytes % (Manual) Monocytes % (Manual) Seg Neutrophils # Seg Neutrophils # Man Lymphocytes # (Manual) Monocytes # (Manual) Eosinophils # (Manual) Basophils # (Manual) PT INR APTT ABG pH ABG pO2 ABG HCO3 ABG O2 Saturation ABG Base Excess ABG Hemoglobin Oxyhemoglobin Sodium Potassium Chloride Carbon Dioxide BUN Creatinine Glucose POC Glucose 119 H 114 H 144 H Lactic Acid Calcium Ionized Calcium Phosphorus Magnesium Total Bilirubin AST ALT Alkaline Phosphatase Ammonia Total Creatine Kinase CK-MB (CK-2) CK-MB (CK-2) Rel Index Total Protein Albumin Urine WBC (Auto) Vancomycin Trough Salicylates Acetaminophen Plasma/Serum Alcohol Crossmatch 01/19/20 01/19/20 01/20/20 12:24 17:50 12:06 WBC RBC Hgb Hct MCH RDW Plt Count Lymph % (Auto) [place] % (Auto) [place] # Baso # Seg Neutrophils % Seg Neuts % (Manual) Lymphocytes % (Manual) Monocytes % (Manual) Seg Neutrophils # Seg Neutrophils # Man Lymphocytes # (Manual) Monocytes # (Manual) Eosinophils # (Manual) Basophils # (Manual) PT INR APTT ABG pH ABG pO2 ABG HCO3 ABG O2 Saturation ABG Base Excess ABG Hemoglobin Oxyhemoglobin Sodium Potassium Chloride Carbon Dioxide BUN Creatinine Glucose POC Glucose 132 H 144 H 135 H Lactic Acid Calcium Ionized Calcium Phosphorus Magnesium Total Bilirubin AST ALT Alkaline Phosphatase Ammonia Total Creatine Kinase CK-MB (CK-2) CK-MB (CK-2) Rel Index Total Protein Albumin Urine WBC (Auto) Vancomycin Trough Salicylates Acetaminophen Plasma/Serum Alcohol Crossmatch 01/21/20 01/21/20 01/21/20 05:46 13:02 23:49 WBC RBC Hgb Hct MCH RDW Plt Count Lymph % (Auto) [place] % (Auto) [place] # Baso # Seg Neutrophils % Seg Neuts % (Manual) Lymphocytes % (Manual) Monocytes % (Manual) Seg Neutrophils # Seg Neutrophils # Man Lymphocytes # (Manual) Monocytes # (Manual) Eosinophils # (Manual) Basophils # (Manual) PT INR APTT ABG pH ABG pO2 ABG HCO3 ABG O2 Saturation ABG Base Excess ABG Hemoglobin Oxyhemoglobin Sodium Potassium Chloride Carbon Dioxide BUN Creatinine Glucose POC Glucose 114 H 136 H 120 H Lactic Acid Calcium Ionized Calcium Phosphorus Magnesium Total Bilirubin AST ALT Alkaline Phosphatase Ammonia Total Creatine Kinase CK-MB (CK-2) CK-MB (CK-2) Rel Index Total Protein Albumin Urine WBC (Auto) Vancomycin Trough Salicylates Acetaminophen Plasma/Serum Alcohol Crossmatch 01/22/20 01/22/20 01/22/20 05:41 11:44 16:31 WBC RBC Hgb Hct MCH RDW Plt Count Lymph % (Auto) [place] % (Auto) [place] # Baso # Seg Neutrophils % Seg Neuts % (Manual) Lymphocytes % (Manual) Monocytes % (Manual) Seg Neutrophils # Seg Neutrophils # Man Lymphocytes # (Manual) Monocytes # (Manual) Eosinophils # (Manual) Basophils # (Manual) PT INR APTT ABG pH ABG pO2 ABG HCO3 ABG O2 Saturation ABG Base Excess ABG Hemoglobin Oxyhemoglobin Sodium Potassium Chloride Carbon Dioxide BUN Creatinine Glucose POC Glucose 124 H 173 H 111 H Lactic Acid Calcium Ionized Calcium Phosphorus Magnesium Total Bilirubin AST ALT Alkaline Phosphatase Ammonia Total Creatine Kinase CK-MB (CK-2) CK-MB (CK-2) Rel Index Total Protein Albumin Urine WBC (Auto) Vancomycin Trough Salicylates Acetaminophen Plasma/Serum Alcohol Crossmatch 01/22/20 01/23/20 01/23/20 23:25 05:15 12:15 WBC RBC Hgb Hct MCH RDW Plt Count Lymph % (Auto) [place] % (Auto) [place] # Baso # Seg Neutrophils % Seg Neuts % (Manual) Lymphocytes % (Manual) Monocytes % (Manual) Seg Neutrophils # Seg Neutrophils # Man Lymphocytes # (Manual) Monocytes # (Manual) Eosinophils # (Manual) Basophils # (Manual) PT INR APTT ABG pH ABG pO2 ABG HCO3 ABG O2 Saturation ABG Base Excess ABG Hemoglobin Oxyhemoglobin Sodium Potassium Chloride Carbon Dioxide BUN Creatinine Glucose POC Glucose 134 H 117 H 129 H Lactic Acid Calcium Ionized Calcium Phosphorus Magnesium Total Bilirubin AST ALT Alkaline Phosphatase Ammonia Total Creatine Kinase CK-MB (CK-2) CK-MB (CK-2) Rel Index Total Protein Albumin Urine WBC (Auto) Vancomycin Trough Salicylates Acetaminophen Plasma/Serum Alcohol Crossmatch 01/23/20 01/23/20 01/23/20 16:58 21:17 23:47 WBC RBC Hgb Hct MCH RDW Plt Count Lymph % (Auto) [place] % (Auto) [place] # Baso # Seg Neutrophils % Seg Neuts % (Manual) Lymphocytes % (Manual) Monocytes % (Manual) Seg Neutrophils # Seg Neutrophils # Man Lymphocytes # (Manual) Monocytes # (Manual) Eosinophils # (Manual) Basophils # (Manual) PT INR APTT ABG pH ABG pO2 ABG HCO3 ABG O2 Saturation ABG Base Excess ABG Hemoglobin Oxyhemoglobin Sodium Potassium Chloride Carbon Dioxide BUN Creatinine Glucose POC Glucose 156 H 185 H 156 H Lactic Acid Calcium Ionized Calcium Phosphorus Magnesium Total Bilirubin AST ALT Alkaline Phosphatase Ammonia Total Creatine Kinase CK-MB (CK-2) CK-MB (CK-2) Rel Index Total Protein Albumin Urine WBC (Auto) Vancomycin Trough Salicylates Acetaminophen Plasma/Serum Alcohol Crossmatch 01/24/20 01/24/20 01/24/20 04:47 04:47 05:59 WBC 17.8 H RBC 3.60 L Hgb Hct MCH RDW 16.2 H Plt Count 688 H Lymph % (Auto) 11.8 L [place] % (Auto) 7.5 H [place] # 1.3 H Baso # Seg Neutrophils % 79.9 H Seg Neuts % (Manual) Lymphocytes % (Manual) Monocytes % (Manual) Seg Neutrophils # 14.2 H Seg Neutrophils # Man Lymphocytes # (Manual) Monocytes # (Manual) Eosinophils # (Manual) Basophils # (Manual) PT INR APTT ABG pH ABG pO2 ABG HCO3 ABG O2 Saturation ABG Base Excess ABG Hemoglobin Oxyhemoglobin Sodium 131 L Potassium Chloride 91.2 L Carbon Dioxide BUN 22 H Creatinine 0.3 L Glucose 123 H POC Glucose 147 H Lactic Acid Calcium 10.9 H Ionized Calcium Phosphorus Magnesium Total Bilirubin AST ALT Alkaline Phosphatase Ammonia Total Creatine Kinase CK-MB (CK-2) CK-MB (CK-2) Rel Index Total Protein Albumin Urine WBC (Auto) Vancomycin Trough Salicylates Acetaminophen Plasma/Serum Alcohol Crossmatch 01/24/20 01/24/20 01/25/20 11:47 16:45 00:18 WBC RBC Hgb Hct MCH RDW Plt Count Lymph % (Auto) [place] % (Auto) [place] # Baso # Seg Neutrophils % Seg Neuts % (Manual) Lymphocytes % (Manual) Monocytes % (Manual) Seg Neutrophils # Seg Neutrophils # Man Lymphocytes # (Manual) Monocytes # (Manual) Eosinophils # (Manual) Basophils # (Manual) PT INR APTT ABG pH ABG pO2 ABG HCO3 ABG O2 Saturation ABG Base Excess ABG Hemoglobin Oxyhemoglobin Sodium Potassium Chloride Carbon Dioxide BUN Creatinine Glucose POC Glucose 114 H 108 H 119 H Lactic Acid Calcium Ionized Calcium Phosphorus Magnesium Total Bilirubin AST ALT Alkaline Phosphatase Ammonia Total Creatine Kinase CK-MB (CK-2) CK-MB (CK-2) Rel Index Total Protein Albumin Urine WBC (Auto) Vancomycin Trough Salicylates Acetaminophen Plasma/Serum Alcohol Crossmatch 01/25/20 01/25/20 01/25/20 07:18 11:58 16:56 WBC RBC Hgb Hct MCH RDW Plt Count Lymph % (Auto) [place] % (Auto) [place] # Baso # Seg Neutrophils % Seg Neuts % (Manual) Lymphocytes % (Manual) Monocytes % (Manual) Seg Neutrophils # Seg Neutrophils # Man Lymphocytes # (Manual) Monocytes # (Manual) Eosinophils # (Manual) Basophils # (Manual) PT INR APTT ABG pH ABG pO2 ABG HCO3 ABG O2 Saturation ABG Base Excess ABG Hemoglobin Oxyhemoglobin Sodium Potassium Chloride Carbon Dioxide BUN Creatinine Glucose POC Glucose 136 H 136 H 147 H Lactic Acid Calcium Ionized Calcium Phosphorus Magnesium Total Bilirubin AST ALT Alkaline Phosphatase Ammonia Total Creatine Kinase CK-MB (CK-2) CK-MB (CK-2) Rel Index Total Protein Albumin Urine WBC (Auto) Vancomycin Trough Salicylates Acetaminophen Plasma/Serum Alcohol Crossmatch 01/26/20 01/26/20 01/26/20 00:29 05:59 05:59 WBC 12.8 H RBC Hgb Hct MCH RDW 16.4 H Plt Count 743 H Lymph % (Auto) [place] % (Auto) [place] # 0.9 H Baso # Seg Neutrophils % 76.2 H Seg Neuts % (Manual) Lymphocytes % (Manual) Monocytes % (Manual) Seg Neutrophils # 9.8 H Seg Neutrophils # Man Lymphocytes # (Manual) Monocytes # (Manual) Eosinophils # (Manual) Basophils # (Manual) PT INR APTT ABG pH ABG pO2 ABG HCO3 ABG O2 Saturation ABG Base Excess ABG Hemoglobin Oxyhemoglobin Sodium 132 L Potassium Chloride 90.9 L Carbon Dioxide BUN 23 H Creatinine 0.4 L Glucose 122 H POC Glucose 107 H Lactic Acid Calcium 11.0 H Ionized Calcium Phosphorus Magnesium Total Bilirubin AST ALT Alkaline Phosphatase Ammonia Total Creatine Kinase CK-MB (CK-2) CK-MB (CK-2) Rel Index Total Protein Albumin Urine WBC (Auto) Vancomycin Trough Salicylates Acetaminophen Plasma/Serum Alcohol Crossmatch 01/26/20 01/26/20 01/26/20 06:27 12:06 16:49 WBC RBC Hgb Hct MCH RDW Plt Count Lymph % (Auto) [place] % (Auto) [place] # Baso # Seg Neutrophils % Seg Neuts % (Manual) Lymphocytes % (Manual) Monocytes % (Manual) Seg Neutrophils # Seg Neutrophils # Man Lymphocytes # (Manual) Monocytes # (Manual) Eosinophils # (Manual) Basophils # (Manual) PT INR APTT ABG pH ABG pO2 ABG HCO3 ABG O2 Saturation ABG Base Excess ABG Hemoglobin Oxyhemoglobin Sodium Potassium Chloride Carbon Dioxide BUN Creatinine Glucose POC Glucose 132 H 132 H 110 H Lactic Acid Calcium Ionized Calcium Phosphorus Magnesium Total Bilirubin AST ALT Alkaline Phosphatase Ammonia Total Creatine Kinase CK-MB (CK-2) CK-MB (CK-2) Rel Index Total Protein Albumin Urine WBC (Auto) Vancomycin Trough Salicylates Acetaminophen Plasma/Serum Alcohol Crossmatch 01/27/20 01/27/20 01/27/20 00:08 11:49 16:24 WBC RBC Hgb Hct MCH RDW Plt Count Lymph % (Auto) [place] % (Auto) [place] # Baso # Seg Neutrophils % Seg Neuts % (Manual) Lymphocytes % (Manual) Monocytes % (Manual) Seg Neutrophils # Seg Neutrophils # Man Lymphocytes # (Manual) Monocytes # (Manual) Eosinophils # (Manual) Basophils # (Manual) PT INR APTT ABG pH ABG pO2 ABG HCO3 ABG O2 Saturation ABG Base Excess ABG Hemoglobin Oxyhemoglobin Sodium Potassium Chloride Carbon Dioxide BUN Creatinine Glucose POC Glucose 107 H 119 H 129 H Lactic Acid Calcium Ionized Calcium Phosphorus Magnesium Total Bilirubin AST ALT Alkaline Phosphatase Ammonia Total Creatine Kinase CK-MB (CK-2) CK-MB (CK-2) Rel Index Total Protein Albumin Urine WBC (Auto) Vancomycin Trough Salicylates Acetaminophen Plasma/Serum Alcohol Crossmatch 01/27/20 01/28/20 01/28/20 18:28 01:00 06:22 WBC RBC Hgb Hct MCH RDW Plt Count Lymph % (Auto) [place] % (Auto) [place] # Baso # Seg Neutrophils % Seg Neuts % (Manual) Lymphocytes % (Manual) Monocytes % (Manual) Seg Neutrophils # Seg Neutrophils # Man Lymphocytes # (Manual) Monocytes # (Manual) Eosinophils # (Manual) Basophils # (Manual) PT INR APTT ABG pH ABG pO2 ABG HCO3 ABG O2 Saturation ABG Base Excess ABG Hemoglobin Oxyhemoglobin Sodium Potassium Chloride Carbon Dioxide BUN Creatinine Glucose POC Glucose 126 H 121 H 114 H Lactic Acid Calcium Ionized Calcium Phosphorus Magnesium Total Bilirubin AST ALT Alkaline Phosphatase Ammonia Total Creatine Kinase CK-MB (CK-2) CK-MB (CK-2) Rel Index Total Protein Albumin Urine WBC (Auto) Vancomycin Trough Salicylates Acetaminophen Plasma/Serum Alcohol Crossmatch 01/28/20 01/28/20 01/29/20 11:47 18:00 00:05 WBC RBC Hgb Hct MCH RDW Plt Count Lymph % (Auto) [place] % (Auto) [place] # Baso # Seg Neutrophils % Seg Neuts % (Manual) Lymphocytes % (Manual) Monocytes % (Manual) Seg Neutrophils # Seg Neutrophils # Man Lymphocytes # (Manual) Monocytes # (Manual) Eosinophils # (Manual) Basophils # (Manual) PT INR APTT ABG pH ABG pO2 ABG HCO3 ABG O2 Saturation ABG Base Excess ABG Hemoglobin Oxyhemoglobin Sodium Potassium Chloride Carbon Dioxide BUN Creatinine Glucose POC Glucose 106 H 117 H 127 H Lactic Acid Calcium Ionized Calcium Phosphorus Magnesium Total Bilirubin AST ALT Alkaline Phosphatase Ammonia Total Creatine Kinase CK-MB (CK-2) CK-MB (CK-2) Rel Index Total Protein Albumin Urine WBC (Auto) Vancomycin Trough Salicylates Acetaminophen Plasma/Serum Alcohol Crossmatch 01/29/20 01/29/20 01/29/20 06:04 11:40 16:38 WBC RBC Hgb Hct MCH RDW Plt Count Lymph % (Auto) [place] % (Auto) [place] # Baso # Seg Neutrophils % Seg Neuts % (Manual) Lymphocytes % (Manual) Monocytes % (Manual) Seg Neutrophils # Seg Neutrophils # Man Lymphocytes # (Manual) Monocytes # (Manual) Eosinophils # (Manual) Basophils # (Manual) PT INR APTT ABG pH ABG pO2 ABG HCO3 ABG O2 Saturation ABG Base Excess ABG Hemoglobin Oxyhemoglobin Sodium Potassium Chloride Carbon Dioxide BUN Creatinine Glucose POC Glucose 147 H 139 H 143 H Lactic Acid Calcium Ionized Calcium Phosphorus Magnesium Total Bilirubin AST ALT Alkaline Phosphatase Ammonia Total Creatine Kinase CK-MB (CK-2) CK-MB (CK-2) Rel Index Total Protein Albumin Urine WBC (Auto) Vancomycin Trough Salicylates Acetaminophen Plasma/Serum Alcohol Crossmatch 01/29/20 01/30/20 01/30/20 23:46 06:43 12:07 WBC RBC Hgb Hct MCH RDW Plt Count Lymph % (Auto) [place] % (Auto) [place] # Baso # Seg Neutrophils % Seg Neuts % (Manual) Lymphocytes % (Manual) Monocytes % (Manual) Seg Neutrophils # Seg Neutrophils # Man Lymphocytes # (Manual) Monocytes # (Manual) Eosinophils # (Manual) Basophils # (Manual) PT INR APTT ABG pH ABG pO2 ABG HCO3 ABG O2 Saturation ABG Base Excess ABG Hemoglobin Oxyhemoglobin Sodium Potassium Chloride Carbon Dioxide BUN Creatinine Glucose POC Glucose 122 H 122 H 134 H Lactic Acid Calcium Ionized Calcium Phosphorus Magnesium Total Bilirubin AST ALT Alkaline Phosphatase Ammonia Total Creatine Kinase CK-MB (CK-2) CK-MB (CK-2) Rel Index Total Protein Albumin Urine WBC (Auto) Vancomycin Trough Salicylates Acetaminophen Plasma/Serum Alcohol Crossmatch 01/30/20 01/31/20 01/31/20 17:59 00:52 05:54 WBC RBC Hgb Hct MCH RDW Plt Count Lymph % (Auto) [place] % (Auto) [place] # Baso # Seg Neutrophils % Seg Neuts % (Manual) Lymphocytes % (Manual) Monocytes % (Manual) Seg Neutrophils # Seg Neutrophils # Man Lymphocytes # (Manual) Monocytes # (Manual) Eosinophils # (Manual) Basophils # (Manual) PT INR APTT ABG pH ABG pO2 ABG HCO3 ABG O2 Saturation ABG Base Excess ABG Hemoglobin Oxyhemoglobin Sodium Potassium Chloride Carbon Dioxide BUN Creatinine Glucose POC Glucose 116 H 127 H 127 H Lactic Acid Calcium Ionized Calcium Phosphorus Magnesium Total Bilirubin AST ALT Alkaline Phosphatase Ammonia Total Creatine Kinase CK-MB (CK-2) CK-MB (CK-2) Rel Index Total Protein Albumin Urine WBC (Auto) Vancomycin Trough Salicylates Acetaminophen Plasma/Serum Alcohol Crossmatch 01/31/20 02/01/20 02/01/20 12:20 00:48 12:21 WBC RBC Hgb Hct MCH RDW Plt Count Lymph % (Auto) [place] % (Auto) [place] # Baso # Seg Neutrophils % Seg Neuts % (Manual) Lymphocytes % (Manual) Monocytes % (Manual) Seg Neutrophils # Seg Neutrophils # Man Lymphocytes # (Manual) Monocytes # (Manual) Eosinophils # (Manual) Basophils # (Manual) PT INR APTT ABG pH ABG pO2 ABG HCO3 ABG O2 Saturation ABG Base Excess ABG Hemoglobin Oxyhemoglobin Sodium Potassium Chloride Carbon Dioxide BUN Creatinine Glucose POC Glucose 126 H 154 H 123 H Lactic Acid Calcium Ionized Calcium Phosphorus Magnesium Total Bilirubin AST ALT Alkaline Phosphatase Ammonia Total Creatine Kinase CK-MB (CK-2) CK-MB (CK-2) Rel Index Total Protein Albumin Urine WBC (Auto) Vancomycin Trough Salicylates Acetaminophen Plasma/Serum Alcohol Crossmatch 02/01/20 02/02/20 02/02/20 23:58 06:08 11:50 WBC RBC Hgb Hct MCH RDW Plt Count Lymph % (Auto) [place] % (Auto) [place] # Baso # Seg Neutrophils % Seg Neuts % (Manual) Lymphocytes % (Manual) Monocytes % (Manual) Seg Neutrophils # Seg Neutrophils # Man Lymphocytes # (Manual) Monocytes # (Manual) Eosinophils # (Manual) Basophils # (Manual) PT INR APTT ABG pH ABG pO2 ABG HCO3 ABG O2 Saturation ABG Base Excess ABG Hemoglobin Oxyhemoglobin Sodium Potassium Chloride Carbon Dioxide BUN Creatinine Glucose POC Glucose 125 H 144 H 131 H Lactic Acid Calcium Ionized Calcium Phosphorus Magnesium Total Bilirubin AST ALT Alkaline Phosphatase Ammonia Total Creatine Kinase CK-MB (CK-2) CK-MB (CK-2) Rel Index Total Protein Albumin Urine WBC (Auto) Vancomycin Trough Salicylates Acetaminophen Plasma/Serum Alcohol Crossmatch 02/02/20 02/03/20 02/03/20 17:53 00:14 05:47 WBC RBC Hgb Hct MCH RDW Plt Count Lymph % (Auto) [place] % (Auto) [place] # Baso # Seg Neutrophils % Seg Neuts % (Manual) Lymphocytes % (Manual) Monocytes % (Manual) Seg Neutrophils # Seg Neutrophils # Man Lymphocytes # (Manual) Monocytes # (Manual) Eosinophils # (Manual) Basophils # (Manual) PT INR APTT ABG pH ABG pO2 ABG HCO3 ABG O2 Saturation ABG Base Excess ABG Hemoglobin Oxyhemoglobin Sodium Potassium Chloride Carbon Dioxide BUN Creatinine Glucose POC Glucose 108 H 122 H 118 H Lactic Acid Calcium Ionized Calcium Phosphorus Magnesium Total Bilirubin AST ALT Alkaline Phosphatase Ammonia Total Creatine Kinase CK-MB (CK-2) CK-MB (CK-2) Rel Index Total Protein Albumin Urine WBC (Auto) Vancomycin Trough Salicylates Acetaminophen Plasma/Serum Alcohol Crossmatch 02/03/20 02/03/20 02/03/20 05:59 05:59 11:49 WBC RBC 3.48 L Hgb Hct 29.9 L MCH RDW 16.2 H Plt Count 707 H Lymph % (Auto) [place] % (Auto) 9.3 H [place] # 0.9 H Baso # Seg Neutrophils % Seg Neuts % (Manual) Lymphocytes % (Manual) Monocytes % (Manual) Seg Neutrophils # Seg Neutrophils # Man Lymphocytes # (Manual) Monocytes # (Manual) Eosinophils # (Manual) Basophils # (Manual) PT INR APTT ABG pH ABG pO2 ABG HCO3 ABG O2 Saturation ABG Base Excess ABG Hemoglobin Oxyhemoglobin Sodium 136 L Potassium Chloride 93.4 L Carbon Dioxide BUN 20 H Creatinine 0.5 L Glucose 101 H POC Glucose 133 H Lactic Acid Calcium 10.8 H Ionized Calcium Phosphorus Magnesium Total Bilirubin AST ALT Alkaline Phosphatase Ammonia Total Creatine Kinase CK-MB (CK-2) CK-MB (CK-2) Rel Index Total Protein Albumin Urine WBC (Auto) Vancomycin Trough Salicylates Acetaminophen Plasma/Serum Alcohol Crossmatch 02/03/20 02/04/20 02/04/20 23:19 05:37 23:56 WBC RBC Hgb Hct MCH RDW Plt Count Lymph % (Auto) [place] % (Auto) [place] # Baso # Seg Neutrophils % Seg Neuts % (Manual) Lymphocytes % (Manual) Monocytes % (Manual) Seg Neutrophils # Seg Neutrophils # Man Lymphocytes # (Manual) Monocytes # (Manual) Eosinophils # (Manual) Basophils # (Manual) PT INR APTT ABG pH ABG pO2 ABG HCO3 ABG O2 Saturation ABG Base Excess ABG Hemoglobin Oxyhemoglobin Sodium Potassium Chloride Carbon Dioxide BUN Creatinine Glucose POC Glucose 135 H 108 H 158 H Lactic Acid Calcium Ionized Calcium Phosphorus Magnesium Total Bilirubin AST ALT Alkaline Phosphatase Ammonia Total Creatine Kinase CK-MB (CK-2) CK-MB (CK-2) Rel Index Total Protein Albumin Urine WBC (Auto) Vancomycin Trough Salicylates Acetaminophen Plasma/Serum Alcohol Crossmatch 02/05/20 02/05/20 02/06/20 05:33 23:24 05:50 WBC RBC Hgb Hct MCH RDW Plt Count Lymph % (Auto) [place] % (Auto) [place] # Baso # Seg Neutrophils % Seg Neuts % (Manual) Lymphocytes % (Manual) Monocytes % (Manual) Seg Neutrophils # Seg Neutrophils # Man Lymphocytes # (Manual) Monocytes # (Manual) Eosinophils # (Manual) Basophils # (Manual) PT INR APTT ABG pH ABG pO2 ABG HCO3 ABG O2 Saturation ABG Base Excess ABG Hemoglobin Oxyhemoglobin Sodium Potassium Chloride Carbon Dioxide BUN Creatinine Glucose POC Glucose 152 H 158 H 110 H Lactic Acid Calcium Ionized Calcium Phosphorus Magnesium Total Bilirubin AST ALT Alkaline Phosphatase Ammonia Total Creatine Kinase CK-MB (CK-2) CK-MB (CK-2) Rel Index Total Protein Albumin Urine WBC (Auto) Vancomycin Trough Salicylates Acetaminophen Plasma/Serum Alcohol Crossmatch 02/06/20 02/07/20 02/07/20 16:03 00:13 05:27 WBC RBC Hgb Hct MCH RDW Plt Count Lymph % (Auto) [place] % (Auto) [place] # Baso # Seg Neutrophils % Seg Neuts % (Manual) Lymphocytes % (Manual) Monocytes % (Manual) Seg Neutrophils # Seg Neutrophils # Man Lymphocytes # (Manual) Monocytes # (Manual) Eosinophils # (Manual) Basophils # (Manual) PT INR APTT ABG pH ABG pO2 ABG HCO3 ABG O2 Saturation ABG Base Excess ABG Hemoglobin Oxyhemoglobin Sodium Potassium Chloride Carbon Dioxide BUN Creatinine Glucose POC Glucose 130 H 115 H 115 H Lactic Acid Calcium Ionized Calcium Phosphorus Magnesium Total Bilirubin AST ALT Alkaline Phosphatase Ammonia Total Creatine Kinase CK-MB (CK-2) CK-MB (CK-2) Rel Index Total Protein Albumin Urine WBC (Auto) Vancomycin Trough Salicylates Acetaminophen Plasma/Serum Alcohol Crossmatch 02/07/20 02/07/20 02/08/20 11:42 17:23 00:37 WBC RBC Hgb Hct MCH RDW Plt Count Lymph % (Auto) [place] % (Auto) [place] # Baso # Seg Neutrophils % Seg Neuts % (Manual) Lymphocytes % (Manual) Monocytes % (Manual) Seg Neutrophils # Seg Neutrophils # Man Lymphocytes # (Manual) Monocytes # (Manual) Eosinophils # (Manual) Basophils # (Manual) PT INR APTT ABG pH ABG pO2 ABG HCO3 ABG O2 Saturation ABG Base Excess ABG Hemoglobin Oxyhemoglobin Sodium Potassium Chloride Carbon Dioxide BUN Creatinine Glucose POC Glucose 113 H 114 H 136 H Lactic Acid Calcium Ionized Calcium Phosphorus Magnesium Total Bilirubin AST ALT Alkaline Phosphatase Ammonia Total Creatine Kinase CK-MB (CK-2) CK-MB (CK-2) Rel Index Total Protein Albumin Urine WBC (Auto) Vancomycin Trough Salicylates Acetaminophen Plasma/Serum Alcohol Crossmatch 02/08/20 02/08/20 02/08/20 08:52 11:42 17:02 WBC RBC Hgb Hct MCH RDW Plt Count Lymph % (Auto) [place] % (Auto) [place] # Baso # Seg Neutrophils % Seg Neuts % (Manual) Lymphocytes % (Manual) Monocytes % (Manual) Seg Neutrophils # Seg Neutrophils # Man Lymphocytes # (Manual) Monocytes # (Manual) Eosinophils # (Manual) Basophils # (Manual) PT INR APTT ABG pH ABG pO2 ABG HCO3 ABG O2 Saturation ABG Base Excess ABG Hemoglobin Oxyhemoglobin Sodium 136 L Potassium Chloride 95.7 L Carbon Dioxide BUN 21 H Creatinine 0.4 L Glucose POC Glucose 128 H 145 H Lactic Acid Calcium 10.4 H Ionized Calcium Phosphorus Magnesium Total Bilirubin AST ALT Alkaline Phosphatase Ammonia Total Creatine Kinase CK-MB (CK-2) CK-MB (CK-2) Rel Index Total Protein Albumin Urine WBC (Auto) Vancomycin Trough Salicylates Acetaminophen Plasma/Serum Alcohol Crossmatch 02/09/20 02/09/20 02/09/20 01:05 11:52 16:19 WBC RBC Hgb Hct MCH RDW Plt Count Lymph % (Auto) [place] % (Auto) [place] # Baso # Seg Neutrophils % Seg Neuts % (Manual) Lymphocytes % (Manual) Monocytes % (Manual) Seg Neutrophils # Seg Neutrophils # Man Lymphocytes # (Manual) Monocytes # (Manual) Eosinophils # (Manual) Basophils # (Manual) PT INR APTT ABG pH ABG pO2 ABG HCO3 ABG O2 Saturation ABG Base Excess ABG Hemoglobin Oxyhemoglobin Sodium Potassium Chloride Carbon Dioxide BUN Creatinine Glucose POC Glucose 117 H 141 H 113 H Lactic Acid Calcium Ionized Calcium Phosphorus Magnesium Total Bilirubin AST ALT Alkaline Phosphatase Ammonia Total Creatine Kinase CK-MB (CK-2) CK-MB (CK-2) Rel Index Total Protein Albumin Urine WBC (Auto) Vancomycin Trough Salicylates Acetaminophen Plasma/Serum Alcohol Crossmatch 02/10/20 02/10/20 02/10/20 05:25 12:50 17:08 WBC RBC Hgb Hct MCH RDW Plt Count Lymph % (Auto) [place] % (Auto) [place] # Baso # Seg Neutrophils % Seg Neuts % (Manual) Lymphocytes % (Manual) Monocytes % (Manual) Seg Neutrophils # Seg Neutrophils # Man Lymphocytes # (Manual) Monocytes # (Manual) Eosinophils # (Manual) Basophils # (Manual) PT INR APTT ABG pH ABG pO2 ABG HCO3 ABG O2 Saturation ABG Base Excess ABG Hemoglobin Oxyhemoglobin Sodium Potassium Chloride Carbon Dioxide BUN Creatinine Glucose POC Glucose 136 H 127 H 111 H Lactic Acid Calcium Ionized Calcium Phosphorus Magnesium Total Bilirubin AST ALT Alkaline Phosphatase Ammonia Total Creatine Kinase CK-MB (CK-2) CK-MB (CK-2) Rel Index Total Protein Albumin Urine WBC (Auto) Vancomycin Trough Salicylates Acetaminophen Plasma/Serum Alcohol Crossmatch 02/10/20 02/11/20 02/11/20 23:55 06:11 12:07 WBC RBC Hgb Hct MCH RDW Plt Count Lymph % (Auto) [place] % (Auto) [place] # Baso # Seg Neutrophils % Seg Neuts % (Manual) Lymphocytes % (Manual) Monocytes % (Manual) Seg Neutrophils # Seg Neutrophils # Man Lymphocytes # (Manual) Monocytes # (Manual) Eosinophils # (Manual) Basophils # (Manual) PT INR APTT ABG pH ABG pO2 ABG HCO3 ABG O2 Saturation ABG Base Excess ABG Hemoglobin Oxyhemoglobin Sodium Potassium Chloride Carbon Dioxide BUN Creatinine Glucose POC Glucose 129 H 128 H 141 H Lactic Acid Calcium Ionized Calcium Phosphorus Magnesium Total Bilirubin AST ALT Alkaline Phosphatase Ammonia Total Creatine Kinase CK-MB (CK-2) CK-MB (CK-2) Rel Index Total Protein Albumin Urine WBC (Auto) Vancomycin Trough Salicylates Acetaminophen Plasma/Serum Alcohol Crossmatch 02/11/20 02/12/20 02/13/20 18:22 02:39 06:45 WBC RBC Hgb Hct MCH RDW Plt Count Lymph % (Auto) [place] % (Auto) [place] # Baso # Seg Neutrophils % Seg Neuts % (Manual) Lymphocytes % (Manual) Monocytes % (Manual) Seg Neutrophils # Seg Neutrophils # Man Lymphocytes # (Manual) Monocytes # (Manual) Eosinophils # (Manual) Basophils # (Manual) PT INR APTT ABG pH ABG pO2 ABG HCO3 ABG O2 Saturation ABG Base Excess ABG Hemoglobin Oxyhemoglobin Sodium Potassium Chloride Carbon Dioxide BUN Creatinine Glucose POC Glucose 118 H 107 H 124 H Lactic Acid Calcium Ionized Calcium Phosphorus Magnesium Total Bilirubin AST ALT Alkaline Phosphatase Ammonia Total Creatine Kinase CK-MB (CK-2) CK-MB (CK-2) Rel Index Total Protein Albumin Urine WBC (Auto) Vancomycin Trough Salicylates Acetaminophen Plasma/Serum Alcohol Crossmatch 02/13/20 02/13/20 02/14/20 12:26 18:19 00:21 WBC RBC Hgb Hct MCH RDW Plt Count Lymph % (Auto) [place] % (Auto) [place] # Baso # Seg Neutrophils % Seg Neuts % (Manual) Lymphocytes % (Manual) Monocytes % (Manual) Seg Neutrophils # Seg Neutrophils # Man Lymphocytes # (Manual) Monocytes # (Manual) Eosinophils # (Manual) Basophils # (Manual) PT INR APTT ABG pH ABG pO2 ABG HCO3 ABG O2 Saturation ABG Base Excess ABG Hemoglobin Oxyhemoglobin Sodium Potassium Chloride Carbon Dioxide BUN Creatinine Glucose POC Glucose 124 H 118 H 130 H Lactic Acid Calcium Ionized Calcium Phosphorus Magnesium Total Bilirubin AST ALT Alkaline Phosphatase Ammonia Total Creatine Kinase CK-MB (CK-2) CK-MB (CK-2) Rel Index Total Protein Albumin Urine WBC (Auto) Vancomycin Trough Salicylates Acetaminophen Plasma/Serum Alcohol Crossmatch 02/14/20 02/14/20 02/16/20 11:19 16:16 00:58 WBC RBC Hgb Hct MCH RDW Plt Count Lymph % (Auto) [place] % (Auto) [place] # Baso # Seg Neutrophils % Seg Neuts % (Manual) Lymphocytes % (Manual) Monocytes % (Manual) Seg Neutrophils # Seg Neutrophils # Man Lymphocytes # (Manual) Monocytes # (Manual) Eosinophils # (Manual) Basophils # (Manual) PT INR APTT ABG pH ABG pO2 ABG HCO3 ABG O2 Saturation ABG Base Excess ABG Hemoglobin Oxyhemoglobin Sodium Potassium Chloride Carbon Dioxide BUN Creatinine Glucose POC Glucose 135 H 119 H 121 H Lactic Acid Calcium Ionized Calcium Phosphorus Magnesium Total Bilirubin AST ALT Alkaline Phosphatase Ammonia Total Creatine Kinase CK-MB (CK-2) CK-MB (CK-2) Rel Index Total Protein Albumin Urine WBC (Auto) Vancomycin Trough Salicylates Acetaminophen Plasma/Serum Alcohol Crossmatch 02/16/20 02/16/20 02/16/20 12:12 18:22 23:51 WBC RBC Hgb Hct MCH RDW Plt Count Lymph % (Auto) [place] % (Auto) [place] # Baso # Seg Neutrophils % Seg Neuts % (Manual) Lymphocytes % (Manual) Monocytes % (Manual) Seg Neutrophils # Seg Neutrophils # Man Lymphocytes # (Manual) Monocytes # (Manual) Eosinophils # (Manual) Basophils # (Manual) PT INR APTT ABG pH ABG pO2 ABG HCO3 ABG O2 Saturation ABG Base Excess ABG Hemoglobin Oxyhemoglobin Sodium Potassium Chloride Carbon Dioxide BUN Creatinine Glucose POC Glucose 107 H 106 H 128 H Lactic Acid Calcium Ionized Calcium Phosphorus Magnesium Total Bilirubin AST ALT Alkaline Phosphatase Ammonia Total Creatine Kinase CK-MB (CK-2) CK-MB (CK-2) Rel Index Total Protein Albumin Urine WBC (Auto) Vancomycin Trough Salicylates Acetaminophen Plasma/Serum Alcohol Crossmatch 02/17/20 02/17/20 02/17/20 05:50 07:57 07:57 WBC 12.6 H RBC 3.52 L Hgb Hct MCH RDW 15.3 H Plt Count 643 H Lymph % (Auto) [place] % (Auto) 8.0 H [place] # 1.0 H Baso # Seg Neutrophils % Seg Neuts % (Manual) Lymphocytes % (Manual) Monocytes % (Manual) Seg Neutrophils # 8.5 H Seg Neutrophils # Man Lymphocytes # (Manual) Monocytes # (Manual) Eosinophils # (Manual) Basophils # (Manual) PT INR APTT ABG pH ABG pO2 ABG HCO3 ABG O2 Saturation ABG Base Excess ABG Hemoglobin Oxyhemoglobin Sodium Potassium Chloride 96.9 L Carbon Dioxide BUN 21 H Creatinine 0.4 L Glucose 113 H POC Glucose 116 H Lactic Acid Calcium 10.5 H Ionized Calcium Phosphorus Magnesium Total Bilirubin AST ALT Alkaline Phosphatase Ammonia Total Creatine Kinase CK-MB (CK-2) CK-MB (CK-2) Rel Index Total Protein Albumin Urine WBC (Auto) Vancomycin Trough Salicylates Acetaminophen Plasma/Serum Alcohol Crossmatch 02/17/20 02/17/20 02/18/20 12:05 18:16 00:13 WBC RBC Hgb Hct MCH RDW Plt Count Lymph % (Auto) [place] % (Auto) [place] # Baso # Seg Neutrophils % Seg Neuts % (Manual) Lymphocytes % (Manual) Monocytes % (Manual) Seg Neutrophils # Seg Neutrophils # Man Lymphocytes # (Manual) Monocytes # (Manual) Eosinophils # (Manual) Basophils # (Manual) PT INR APTT ABG pH ABG pO2 ABG HCO3 ABG O2 Saturation ABG Base Excess ABG Hemoglobin Oxyhemoglobin Sodium Potassium Chloride Carbon Dioxide BUN Creatinine Glucose POC Glucose 139 H 127 H 144 H Lactic Acid Calcium Ionized Calcium Phosphorus Magnesium Total Bilirubin AST ALT Alkaline Phosphatase Ammonia Total Creatine Kinase CK-MB (CK-2) CK-MB (CK-2) Rel Index Total Protein Albumin Urine WBC (Auto) Vancomycin Trough Salicylates Acetaminophen Plasma/Serum Alcohol Crossmatch 02/18/20 02/18/20 02/19/20 17:41 23:28 05:17 WBC RBC Hgb Hct MCH RDW Plt Count Lymph % (Auto) [place] % (Auto) [place] # Baso # Seg Neutrophils % Seg Neuts % (Manual) Lymphocytes % (Manual) Monocytes % (Manual) Seg Neutrophils # Seg Neutrophils # Man Lymphocytes # (Manual) Monocytes # (Manual) Eosinophils # (Manual) Basophils # (Manual) PT INR APTT ABG pH ABG pO2 ABG HCO3 ABG O2 Saturation ABG Base Excess ABG Hemoglobin Oxyhemoglobin Sodium Potassium Chloride Carbon Dioxide BUN Creatinine Glucose POC Glucose 118 H 166 H 116 H Lactic Acid Calcium Ionized Calcium Phosphorus Magnesium Total Bilirubin AST ALT Alkaline Phosphatase Ammonia Total Creatine Kinase CK-MB (CK-2) CK-MB (CK-2) Rel Index Total Protein Albumin Urine WBC (Auto) Vancomycin Trough Salicylates Acetaminophen Plasma/Serum Alcohol Crossmatch 02/19/20 02/19/20 02/20/20 12:33 17:02 00:12 WBC RBC Hgb Hct MCH RDW Plt Count Lymph % (Auto) [place] % (Auto) [place] # Baso # Seg Neutrophils % Seg Neuts % (Manual) Lymphocytes % (Manual) Monocytes % (Manual) Seg Neutrophils # Seg Neutrophils # Man Lymphocytes # (Manual) Monocytes # (Manual) Eosinophils # (Manual) Basophils # (Manual) PT INR APTT ABG pH ABG pO2 ABG HCO3 ABG O2 Saturation ABG Base Excess ABG Hemoglobin Oxyhemoglobin Sodium Potassium Chloride Carbon Dioxide BUN Creatinine Glucose POC Glucose 115 H 108 H 153 H Lactic Acid Calcium Ionized Calcium Phosphorus Magnesium Total Bilirubin AST ALT Alkaline Phosphatase Ammonia Total Creatine Kinase CK-MB (CK-2) CK-MB (CK-2) Rel Index Total Protein Albumin Urine WBC (Auto) Vancomycin Trough Salicylates Acetaminophen Plasma/Serum Alcohol Crossmatch 02/20/20 02/20/20 02/21/20 12:00 23:13 05:07 WBC RBC Hgb Hct MCH RDW Plt Count Lymph % (Auto) [place] % (Auto) [place] # Baso # Seg Neutrophils % Seg Neuts % (Manual) Lymphocytes % (Manual) Monocytes % (Manual) Seg Neutrophils # Seg Neutrophils # Man Lymphocytes # (Manual) Monocytes # (Manual) Eosinophils # (Manual) Basophils # (Manual) PT INR APTT ABG pH ABG pO2 ABG HCO3 ABG O2 Saturation ABG Base Excess ABG Hemoglobin Oxyhemoglobin Sodium Potassium Chloride Carbon Dioxide BUN Creatinine Glucose POC Glucose 171 H 129 H 116 H Lactic Acid Calcium Ionized Calcium Phosphorus Magnesium Total Bilirubin AST ALT Alkaline Phosphatase Ammonia Total Creatine Kinase CK-MB (CK-2) CK-MB (CK-2) Rel Index Total Protein Albumin Urine WBC (Auto) Vancomycin Trough Salicylates Acetaminophen Plasma/Serum Alcohol Crossmatch 02/21/20 02/22/20 02/22/20 12:15 00:42 06:30 WBC RBC Hgb Hct MCH RDW Plt Count Lymph % (Auto) [place] % (Auto) [place] # Baso # Seg Neutrophils % Seg Neuts % (Manual) Lymphocytes % (Manual) Monocytes % (Manual) Seg Neutrophils # Seg Neutrophils # Man Lymphocytes # (Manual) Monocytes # (Manual) Eosinophils # (Manual) Basophils # (Manual) PT INR APTT ABG pH ABG pO2 ABG HCO3 ABG O2 Saturation ABG Base Excess ABG Hemoglobin Oxyhemoglobin Sodium Potassium Chloride Carbon Dioxide BUN Creatinine Glucose POC Glucose 124 H 142 H 117 H Lactic Acid Calcium Ionized Calcium Phosphorus Magnesium Total Bilirubin AST ALT Alkaline Phosphatase Ammonia Total Creatine Kinase CK-MB (CK-2) CK-MB (CK-2) Rel Index Total Protein Albumin Urine WBC (Auto) Vancomycin Trough Salicylates Acetaminophen Plasma/Serum Alcohol Crossmatch 02/22/20 02/22/20 02/23/20 12:20 17:55 12:46 WBC RBC Hgb Hct MCH RDW Plt Count Lymph % (Auto) [place] % (Auto) [place] # Baso # Seg Neutrophils % Seg Neuts % (Manual) Lymphocytes % (Manual) Monocytes % (Manual) Seg Neutrophils # Seg Neutrophils # Man Lymphocytes # (Manual) Monocytes # (Manual) Eosinophils # (Manual) Basophils # (Manual) PT INR APTT ABG pH ABG pO2 ABG HCO3 ABG O2 Saturation ABG Base Excess ABG Hemoglobin Oxyhemoglobin Sodium Potassium Chloride Carbon Dioxide BUN Creatinine Glucose POC Glucose 121 H 157 H 112 H Lactic Acid Calcium Ionized Calcium Phosphorus Magnesium Total Bilirubin AST ALT Alkaline Phosphatase Ammonia Total Creatine Kinase CK-MB (CK-2) CK-MB (CK-2) Rel Index Total Protein Albumin Urine WBC (Auto) Vancomycin Trough Salicylates Acetaminophen Plasma/Serum Alcohol Crossmatch 02/23/20 02/24/20 02/24/20 16:47 00:38 07:00 WBC RBC Hgb Hct MCH RDW Plt Count Lymph % (Auto) [place] % (Auto) [place] # Baso # Seg Neutrophils % Seg Neuts % (Manual) Lymphocytes % (Manual) Monocytes % (Manual) Seg Neutrophils # Seg Neutrophils # Man Lymphocytes # (Manual) Monocytes # (Manual) Eosinophils # (Manual) Basophils # (Manual) PT INR APTT ABG pH ABG pO2 ABG HCO3 ABG O2 Saturation ABG Base Excess ABG Hemoglobin Oxyhemoglobin Sodium Potassium Chloride Carbon Dioxide BUN Creatinine Glucose POC Glucose 142 H 138 H 118 H Lactic Acid Calcium Ionized Calcium Phosphorus Magnesium Total Bilirubin AST ALT Alkaline Phosphatase Ammonia Total Creatine Kinase CK-MB (CK-2) CK-MB (CK-2) Rel Index Total Protein Albumin Urine WBC (Auto) Vancomycin Trough Salicylates Acetaminophen Plasma/Serum Alcohol Crossmatch 02/24/20 02/24/20 02/25/20 11:41 18:33 18:24 WBC RBC Hgb Hct MCH RDW Plt Count Lymph % (Auto) [place] % (Auto) [place] # Baso # Seg Neutrophils % Seg Neuts % (Manual) Lymphocytes % (Manual) Monocytes % (Manual) Seg Neutrophils # Seg Neutrophils # Man Lymphocytes # (Manual) Monocytes # (Manual) Eosinophils # (Manual) Basophils # (Manual) PT INR APTT ABG pH ABG pO2 ABG HCO3 ABG O2 Saturation ABG Base Excess ABG Hemoglobin Oxyhemoglobin Sodium Potassium Chloride Carbon Dioxide BUN Creatinine Glucose POC Glucose 152 H 126 H 120 H Lactic Acid Calcium Ionized Calcium Phosphorus Magnesium Total Bilirubin AST ALT Alkaline Phosphatase Ammonia Total Creatine Kinase CK-MB (CK-2) CK-MB (CK-2) Rel Index Total Protein Albumin Urine WBC (Auto) Vancomycin Trough Salicylates Acetaminophen Plasma/Serum Alcohol Crossmatch 02/25/20 02/26/20 02/26/20 23:40 05:46 11:32 WBC RBC Hgb Hct MCH RDW Plt Count Lymph % (Auto) [place] % (Auto) [place] # Baso # Seg Neutrophils % Seg Neuts % (Manual) Lymphocytes % (Manual) Monocytes % (Manual) Seg Neutrophils # Seg Neutrophils # Man Lymphocytes # (Manual) Monocytes # (Manual) Eosinophils # (Manual) Basophils # (Manual) PT INR APTT ABG pH ABG pO2 ABG HCO3 ABG O2 Saturation ABG Base Excess ABG Hemoglobin Oxyhemoglobin Sodium Potassium Chloride Carbon Dioxide BUN Creatinine Glucose POC Glucose 114 H 113 H 106 H Lactic Acid Calcium Ionized Calcium Phosphorus Magnesium Total Bilirubin AST ALT Alkaline Phosphatase Ammonia Total Creatine Kinase CK-MB (CK-2) CK-MB (CK-2) Rel Index Total Protein Albumin Urine WBC (Auto) Vancomycin Trough Salicylates Acetaminophen Plasma/Serum Alcohol Crossmatch 02/26/20 02/27/20 02/27/20 16:14 11:53 17:54 WBC RBC Hgb Hct MCH RDW Plt Count Lymph % (Auto) [place] % (Auto) [place] # Baso # Seg Neutrophils % Seg Neuts % (Manual) Lymphocytes % (Manual) Monocytes % (Manual) Seg Neutrophils # Seg Neutrophils # Man Lymphocytes # (Manual) Monocytes # (Manual) Eosinophils # (Manual) Basophils # (Manual) PT INR APTT ABG pH ABG pO2 ABG HCO3 ABG O2 Saturation ABG Base Excess ABG Hemoglobin Oxyhemoglobin Sodium Potassium Chloride Carbon Dioxide BUN Creatinine Glucose POC Glucose 123 H 134 H 119 H Lactic Acid Calcium Ionized Calcium Phosphorus Magnesium Total Bilirubin AST ALT Alkaline Phosphatase Ammonia Total Creatine Kinase CK-MB (CK-2) CK-MB (CK-2) Rel Index Total Protein Albumin Urine WBC (Auto) Vancomycin Trough Salicylates Acetaminophen Plasma/Serum Alcohol Crossmatch 02/27/20 02/28/20 02/28/20 23:51 03:40 03:40 WBC RBC 3.58 L Hgb Hct MCH RDW Plt Count 575 H Lymph % (Auto) [place] % (Auto) 9.4 H [place] # 1.0 H Baso # Seg Neutrophils % Seg Neuts % (Manual) Lymphocytes % (Manual) Monocytes % (Manual) Seg Neutrophils # Seg Neutrophils # Man Lymphocytes # (Manual) Monocytes # (Manual) Eosinophils # (Manual) Basophils # (Manual) PT INR APTT ABG pH ABG pO2 ABG HCO3 ABG O2 Saturation ABG Base Excess ABG Hemoglobin Oxyhemoglobin Sodium Potassium Chloride Carbon Dioxide BUN 23 H Creatinine 0.5 L Glucose 114 H POC Glucose 138 H Lactic Acid Calcium Ionized Calcium Phosphorus Magnesium Total Bilirubin AST ALT Alkaline Phosphatase Ammonia Total Creatine Kinase CK-MB (CK-2) CK-MB (CK-2) Rel Index Total Protein Albumin Urine WBC (Auto) Vancomycin Trough Salicylates Acetaminophen Plasma/Serum Alcohol Crossmatch 02/28/20 02/28/20 02/29/20 12:37 18:38 05:50 WBC RBC Hgb Hct MCH RDW Plt Count Lymph % (Auto) [place] % (Auto) [place] # Baso # Seg Neutrophils % Seg Neuts % (Manual) Lymphocytes % (Manual) Monocytes % (Manual) Seg Neutrophils # Seg Neutrophils # Man Lymphocytes # (Manual) Monocytes # (Manual) Eosinophils # (Manual) Basophils # (Manual) PT INR APTT ABG pH ABG pO2 ABG HCO3 ABG O2 Saturation ABG Base Excess ABG Hemoglobin Oxyhemoglobin Sodium Potassium Chloride Carbon Dioxide BUN Creatinine Glucose POC Glucose 115 H 120 H 114 H Lactic Acid Calcium Ionized Calcium Phosphorus Magnesium Total Bilirubin AST ALT Alkaline Phosphatase Ammonia Total Creatine Kinase CK-MB (CK-2) CK-MB (CK-2) Rel Index Total Protein Albumin Urine WBC (Auto) Vancomycin Trough Salicylates Acetaminophen Plasma/Serum Alcohol Crossmatch 02/29/20 02/29/20 03/01/20 18:53 23:10 06:53 WBC RBC Hgb Hct MCH RDW Plt Count Lymph % (Auto) [place] % (Auto) [place] # Baso # Seg Neutrophils % Seg Neuts % (Manual) Lymphocytes % (Manual) Monocytes % (Manual) Seg Neutrophils # Seg Neutrophils # Man Lymphocytes # (Manual) Monocytes # (Manual) Eosinophils # (Manual) Basophils # (Manual) PT INR APTT ABG pH ABG pO2 ABG HCO3 ABG O2 Saturation ABG Base Excess ABG Hemoglobin Oxyhemoglobin Sodium Potassium Chloride Carbon Dioxide BUN Creatinine Glucose POC Glucose 112 H 147 H 131 H Lactic Acid Calcium Ionized Calcium Phosphorus Magnesium Total Bilirubin AST ALT Alkaline Phosphatase Ammonia Total Creatine Kinase CK-MB (CK-2) CK-MB (CK-2) Rel Index Total Protein Albumin Urine WBC (Auto) Vancomycin Trough Salicylates Acetaminophen Plasma/Serum Alcohol Crossmatch 03/01/20 03/01/20 03/02/20 17:31 18:35 00:10 WBC RBC Hgb Hct MCH RDW Plt Count Lymph % (Auto) [place] % (Auto) [place] # Baso # Seg Neutrophils % Seg Neuts % (Manual) Lymphocytes % (Manual) Monocytes % (Manual) Seg Neutrophils # Seg Neutrophils # Man Lymphocytes # (Manual) Monocytes # (Manual) Eosinophils # (Manual) Basophils # (Manual) PT INR APTT ABG pH ABG pO2 ABG HCO3 ABG O2 Saturation ABG Base Excess ABG Hemoglobin Oxyhemoglobin Sodium Potassium Chloride Carbon Dioxide BUN Creatinine Glucose POC Glucose 61 L 129 H 117 H Lactic Acid Calcium Ionized Calcium Phosphorus Magnesium Total Bilirubin AST ALT Alkaline Phosphatase Ammonia Total Creatine Kinase CK-MB (CK-2) CK-MB (CK-2) Rel Index Total Protein Albumin Urine WBC (Auto) Vancomycin Trough Salicylates Acetaminophen Plasma/Serum Alcohol Crossmatch 03/02/20 03/02/20 03/02/20 06:56 12:02 18:42 WBC RBC Hgb Hct MCH RDW Plt Count Lymph % (Auto) [place] % (Auto) [place] # Baso # Seg Neutrophils % Seg Neuts % (Manual) Lymphocytes % (Manual) Monocytes % (Manual) Seg Neutrophils # Seg Neutrophils # Man Lymphocytes # (Manual) Monocytes # (Manual) Eosinophils # (Manual) Basophils # (Manual) PT INR APTT ABG pH ABG pO2 ABG HCO3 ABG O2 Saturation ABG Base Excess ABG Hemoglobin Oxyhemoglobin Sodium Potassium Chloride Carbon Dioxide BUN Creatinine Glucose POC Glucose 125 H 111 H 126 H Lactic Acid Calcium Ionized Calcium Phosphorus Magnesium Total Bilirubin AST ALT Alkaline Phosphatase Ammonia Total Creatine Kinase CK-MB (CK-2) CK-MB (CK-2) Rel Index Total Protein Albumin Urine WBC (Auto) Vancomycin Trough Salicylates Acetaminophen Plasma/Serum Alcohol Crossmatch 03/03/20 03/03/20 03/03/20 00:18 06:11 11:50 WBC RBC Hgb Hct MCH RDW Plt Count Lymph % (Auto) [place] % (Auto) [place] # Baso # Seg Neutrophils % Seg Neuts % (Manual) Lymphocytes % (Manual) Monocytes % (Manual) Seg Neutrophils # Seg Neutrophils # Man Lymphocytes # (Manual) Monocytes # (Manual) Eosinophils # (Manual) Basophils # (Manual) PT INR APTT ABG pH ABG pO2 ABG HCO3 ABG O2 Saturation ABG Base Excess ABG Hemoglobin Oxyhemoglobin Sodium Potassium Chloride Carbon Dioxide BUN Creatinine Glucose POC Glucose 139 H 155 H 118 H Lactic Acid Calcium Ionized Calcium Phosphorus Magnesium Total Bilirubin AST ALT Alkaline Phosphatase Ammonia Total Creatine Kinase CK-MB (CK-2) CK-MB (CK-2) Rel Index Total Protein Albumin Urine WBC (Auto) Vancomycin Trough Salicylates Acetaminophen Plasma/Serum Alcohol Crossmatch 03/03/20 03/03/20 03/04/20 18:09 23:46 05:37 WBC RBC Hgb Hct MCH RDW Plt Count Lymph % (Auto) [place] % (Auto) [place] # Baso # Seg Neutrophils % Seg Neuts % (Manual) Lymphocytes % (Manual) Monocytes % (Manual) Seg Neutrophils # Seg Neutrophils # Man Lymphocytes # (Manual) Monocytes # (Manual) Eosinophils # (Manual) Basophils # (Manual) PT INR APTT ABG pH ABG pO2 ABG HCO3 ABG O2 Saturation ABG Base Excess ABG Hemoglobin Oxyhemoglobin Sodium Potassium Chloride Carbon Dioxide BUN Creatinine Glucose POC Glucose 109 H 132 H 111 H Lactic Acid Calcium Ionized Calcium Phosphorus Magnesium Total Bilirubin AST ALT Alkaline Phosphatase Ammonia Total Creatine Kinase CK-MB (CK-2) CK-MB (CK-2) Rel Index Total Protein Albumin Urine WBC (Auto) Vancomycin Trough Salicylates Acetaminophen Plasma/Serum Alcohol Crossmatch 03/04/20 03/04/20 03/05/20 11:38 17:54 00:14 WBC RBC Hgb Hct MCH RDW Plt Count Lymph % (Auto) [place] % (Auto) [place] # Baso # Seg Neutrophils % Seg Neuts % (Manual) Lymphocytes % (Manual) Monocytes % (Manual) Seg Neutrophils # Seg Neutrophils # Man Lymphocytes # (Manual) Monocytes # (Manual) Eosinophils # (Manual) Basophils # (Manual) PT INR APTT ABG pH ABG pO2 ABG HCO3 ABG O2 Saturation ABG Base Excess ABG Hemoglobin Oxyhemoglobin Sodium Potassium Chloride Carbon Dioxide BUN Creatinine Glucose POC Glucose 138 H 118 H 134 H Lactic Acid Calcium Ionized Calcium Phosphorus Magnesium Total Bilirubin AST ALT Alkaline Phosphatase Ammonia Total Creatine Kinase CK-MB (CK-2) CK-MB (CK-2) Rel Index Total Protein Albumin Urine WBC (Auto) Vancomycin Trough Salicylates Acetaminophen Plasma/Serum Alcohol Crossmatch 03/06/20 03/06/20 03/06/20 03:37 03:37 06:29 WBC RBC Hgb Hct MCH RDW Plt Count 550 H Lymph % (Auto) [place] % (Auto) 9.1 H [place] # Baso # Seg Neutrophils % Seg Neuts % (Manual) Lymphocytes % (Manual) Monocytes % (Manual) Seg Neutrophils # Seg Neutrophils # Man Lymphocytes # (Manual) Monocytes # (Manual) Eosinophils # (Manual) Basophils # (Manual) PT INR APTT ABG pH ABG pO2 ABG HCO3 ABG O2 Saturation ABG Base Excess ABG Hemoglobin Oxyhemoglobin Sodium Potassium Chloride Carbon Dioxide BUN 26 H Creatinine 0.5 L Glucose POC Glucose 128 H Lactic Acid Calcium 10.4 H Ionized Calcium Phosphorus Magnesium Total Bilirubin AST ALT Alkaline Phosphatase Ammonia Total Creatine Kinase CK-MB (CK-2) CK-MB (CK-2) Rel Index Total Protein Albumin Urine WBC (Auto) Vancomycin Trough Salicylates Acetaminophen Plasma/Serum Alcohol Crossmatch 03/06/20 03/07/20 03/07/20 17:47 06:37 12:37 WBC RBC Hgb Hct MCH RDW Plt Count Lymph % (Auto) [place] % (Auto) [place] # Baso # Seg Neutrophils % Seg Neuts % (Manual) Lymphocytes % (Manual) Monocytes % (Manual) Seg Neutrophils # Seg Neutrophils # Man Lymphocytes # (Manual) Monocytes # (Manual) Eosinophils # (Manual) Basophils # (Manual) PT INR APTT ABG pH ABG pO2 ABG HCO3 ABG O2 Saturation ABG Base Excess ABG Hemoglobin Oxyhemoglobin Sodium Potassium Chloride Carbon Dioxide BUN Creatinine Glucose POC Glucose 120 H 113 H 118 H Lactic Acid Calcium Ionized Calcium Phosphorus Magnesium Total Bilirubin AST ALT Alkaline Phosphatase Ammonia Total Creatine Kinase CK-MB (CK-2) CK-MB (CK-2) Rel Index Total Protein Albumin Urine WBC (Auto) Vancomycin Trough Salicylates Acetaminophen Plasma/Serum Alcohol Crossmatch 03/07/20 03/08/20 03/08/20 16:41 00:55 06:25 WBC RBC Hgb Hct MCH RDW Plt Count Lymph % (Auto) [place] % (Auto) [place] # Baso # Seg Neutrophils % Seg Neuts % (Manual) Lymphocytes % (Manual) Monocytes % (Manual) Seg Neutrophils # Seg Neutrophils # Man Lymphocytes # (Manual) Monocytes # (Manual) Eosinophils # (Manual) Basophils # (Manual) PT INR APTT ABG pH ABG pO2 ABG HCO3 ABG O2 Saturation ABG Base Excess ABG Hemoglobin Oxyhemoglobin Sodium Potassium Chloride Carbon Dioxide BUN Creatinine Glucose POC Glucose 108 H 139 H 127 H Lactic Acid Calcium Ionized Calcium Phosphorus Magnesium Total Bilirubin AST ALT Alkaline Phosphatase Ammonia Total Creatine Kinase CK-MB (CK-2) CK-MB (CK-2) Rel Index Total Protein Albumin Urine WBC (Auto) Vancomycin Trough Salicylates Acetaminophen Plasma/Serum Alcohol Crossmatch 03/08/20 03/08/20 03/08/20 12:49 13:25 17:13 WBC RBC Hgb Hct MCH RDW Plt Count Lymph % (Auto) [place] % (Auto) [place] # Baso # Seg Neutrophils % Seg Neuts % (Manual) Lymphocytes % (Manual) Monocytes % (Manual) Seg Neutrophils # Seg Neutrophils # Man Lymphocytes # (Manual) Monocytes # (Manual) Eosinophils # (Manual) Basophils # (Manual) PT INR APTT ABG pH ABG pO2 71.1 L ABG HCO3 26.2 H ABG O2 Saturation ABG Base Excess ABG Hemoglobin 8.2 L Oxyhemoglobin 94.8 L Sodium Potassium Chloride Carbon Dioxide BUN Creatinine Glucose POC Glucose 127 H 147 H Lactic Acid Calcium Ionized Calcium Phosphorus Magnesium Total Bilirubin AST ALT Alkaline Phosphatase Ammonia Total Creatine Kinase CK-MB (CK-2) CK-MB (CK-2) Rel Index Total Protein Albumin Urine WBC (Auto) Vancomycin Trough Salicylates Acetaminophen Plasma/Serum Alcohol Crossmatch 03/09/20 03/09/20 03/09/20 06:28 08:36 23:58 WBC RBC Hgb Hct MCH RDW Plt Count Lymph % (Auto) [place] % (Auto) [place] # Baso # Seg Neutrophils % Seg Neuts % (Manual) Lymphocytes % (Manual) Monocytes % (Manual) Seg Neutrophils # Seg Neutrophils # Man Lymphocytes # (Manual) Monocytes # (Manual) Eosinophils # (Manual) Basophils # (Manual) PT INR APTT ABG pH ABG pO2 ABG HCO3 ABG O2 Saturation ABG Base Excess ABG Hemoglobin Oxyhemoglobin Sodium Potassium Chloride Carbon Dioxide BUN Creatinine Glucose POC Glucose 139 H 167 H 122 H Lactic Acid Calcium Ionized Calcium Phosphorus Magnesium Total Bilirubin AST ALT Alkaline Phosphatase Ammonia Total Creatine Kinase CK-MB (CK-2) CK-MB (CK-2) Rel Index Total Protein Albumin Urine WBC (Auto) Vancomycin Trough Salicylates Acetaminophen Plasma/Serum Alcohol Crossmatch 03/10/20 03/10/20 03/11/20 06:32 23:27 06:23 WBC RBC Hgb Hct MCH RDW Plt Count Lymph % (Auto) [place] % (Auto) [place] # Baso # Seg Neutrophils % Seg Neuts % (Manual) Lymphocytes % (Manual) Monocytes % (Manual) Seg Neutrophils # Seg Neutrophils # Man Lymphocytes # (Manual) Monocytes # (Manual) Eosinophils # (Manual) Basophils # (Manual) PT INR APTT ABG pH ABG pO2 ABG HCO3 ABG O2 Saturation ABG Base Excess ABG Hemoglobin Oxyhemoglobin Sodium Potassium Chloride Carbon Dioxide BUN Creatinine Glucose POC Glucose 165 H 115 H 139 H Lactic Acid Calcium Ionized Calcium Phosphorus Magnesium Total Bilirubin AST ALT Alkaline Phosphatase Ammonia Total Creatine Kinase CK-MB (CK-2) CK-MB (CK-2) Rel Index Total Protein Albumin Urine WBC (Auto) Vancomycin Trough Salicylates Acetaminophen Plasma/Serum Alcohol Crossmatch 03/11/20 03/11/20 03/12/20 12:29 18:02 04:53 WBC RBC Hgb Hct MCH RDW Plt Count 625 H Lymph % (Auto) [place] % (Auto) [place] # Baso # Seg Neutrophils % Seg Neuts % (Manual) Lymphocytes % (Manual) Monocytes % (Manual) Seg Neutrophils # Seg Neutrophils # Man Lymphocytes # (Manual) Monocytes # (Manual) Eosinophils # (Manual) Basophils # (Manual) PT INR APTT ABG pH ABG pO2 ABG HCO3 ABG O2 Saturation ABG Base Excess ABG Hemoglobin Oxyhemoglobin Sodium Potassium Chloride Carbon Dioxide BUN Creatinine Glucose POC Glucose 164 H 113 H Lactic Acid Calcium Ionized Calcium Phosphorus Magnesium Total Bilirubin AST ALT Alkaline Phosphatase Ammonia Total Creatine Kinase CK-MB (CK-2) CK-MB (CK-2) Rel Index Total Protein Albumin Urine WBC (Auto) Vancomycin Trough Salicylates Acetaminophen Plasma/Serum Alcohol Crossmatch 03/12/20 03/12/20 03/12/20 04:53 06:26 12:38 WBC RBC Hgb Hct MCH RDW Plt Count Lymph % (Auto) [place] % (Auto) [place] # Baso # Seg Neutrophils % Seg Neuts % (Manual) Lymphocytes % (Manual) Monocytes % (Manual) Seg Neutrophils # Seg Neutrophils # Man Lymphocytes # (Manual) Monocytes # (Manual) Eosinophils # (Manual) Basophils # (Manual) PT INR APTT ABG pH ABG pO2 ABG HCO3 ABG O2 Saturation ABG Base Excess ABG Hemoglobin Oxyhemoglobin Sodium Potassium 5.3 H Chloride Carbon Dioxide BUN 34 H Creatinine Glucose 159 H POC Glucose 149 H 130 H Lactic Acid Calcium 10.7 H Ionized Calcium Phosphorus Magnesium Total Bilirubin AST ALT Alkaline Phosphatase Ammonia Total Creatine Kinase CK-MB (CK-2) CK-MB (CK-2) Rel Index Total Protein Albumin Urine WBC (Auto) Vancomycin Trough Salicylates Acetaminophen Plasma/Serum Alcohol Crossmatch Chest x-ray: report reviewed, image reviewed Additional Studies: CHEST 1 VIEW 03/12/20 INDICATION / CLINICAL INFORMATION: resp failure, possible aspiration. COMPARISON: 03/08/2020 FINDINGS: SUPPORT DEVICES: Tracheostomy tube appears unchanged HEART / MEDIASTINUM: No significant abnormality. LUNGS / PLEURA: No significant pulmonary or pleural abnormality.. No pneumothorax. ADDITIONAL FINDINGS: No significant additional findings. IMPRESSION: 1. No acute findings. Signer Name: John Christine MD Signed: 03/12/2020 1:04 PM Allied health notes reviewed: RT
[2020-03-12] MEDS: ENOXAPARIN 40 MG/0.4 ML INJ SUB-Q SCH (21:43)
[2020-03-13] MEDS: LEVALBUTEROL 0.63 MG/3 ML NEBU IH SCH ×3 (00:22→15:12)
[2020-03-13] MEDS: ALPRAZolam 1 MG TAB PO PRN ×2 (03:13→20:35)
[2020-03-13 05:01] LABS: BUN/Creatinine Ratio 50; Blood Urea Nitrogen 30 mg/dL (7-17); Hemolysis Index 5
[2020-03-13] MEDS: dexAMETHasone 4 MG/ML VIAL IV SCH ×2 (05:21→12:33)
[2020-03-13] MEDS: ACETYLCYSTEINE 20% 200 MG/1 ML *FOR INHALATION USE INHALATION SCH ×2 (08:03→20:44)
[2020-03-13] MEDS: HALOPERIDOL LACTATE 5 MG/1 ML INJ IM PRN (08:50)
[2020-03-13] MEDS: ACETAMINOPHEN 325 MG/10.15 ML ORAL LIQD UNIT DOSE FEEDTUBE PRN ×2 (12:14→20:36)
[2020-03-13] MEDS: METOPROLOL TARTRATE 25 MG TAB PO SCH ×2 (12:16→21:16)
[2020-03-13] MEDS: NICOTINE 21 MG/24 HR PATCH TD SCH (12:16)
[2020-03-13] MEDS: LANSOPRAZOLE 30 MG SOLUTAB FEEDTUBE SCH (12:16)
[2020-03-13] MEDS: AMOXICILLIN/K CLAV 875/125MG TAB PO SCH ×2 (12:18→21:15)
[2020-03-13] MEDS: SERTRALINE 50 MG TAB PO SCH (12:19)
[2020-03-13] MEDS: MIRTAZAPINE 30 MG TAB PO SCH (12:19)
[2020-03-13] MEDS: GLYCOPYRROLATE 1 MG TAB PO SCH ×3 (12:20→21:15)
[2020-03-13] MEDS: DOCUSATE SODIUM 100 MG/10 ML ORAL LIQD FEEDTUBE SCH ×2 (12:20→21:16)
[2020-03-13] MEDS: QUEtiapine 100 MG TAB FEEDTUBE SCH ×2 (12:21→21:15)
[2020-03-13] MEDS: levETIRAcetam 500 MG/5 ML ORAL LIQD PO SCH ×2 (12:33→21:16)
[2020-03-13] MEDS: hydrOXYzine PAMOATE 25 MG CAP PO SCH ×4 (13:00→21:15)
--- NOTE | 2020-03-13 16:31 | Progress Note ---
Assessment and Plan Assessment and plan: 54-year-old female with a past medical history of Hypertension, Depression, Tobacco use Disorder, Alcohol use Disorder as confirmed by Daughter and pt's mother presents to the hospital status post cardiac arrest at home. EMS found pt in [facility]. They were unable to intubate patient with a ET tube because she was clenching down therefore Joe airway placed. Per the ED physician who evaluated pt, Patient presented with a pulse, intermittent respirations, and bagging support via Joe airway with O2 sat of 100%. Accu-Chek of 71 obtained by EMS. She was intubated in the ER and called for admission. Following admission patient was diagnosed with anoxic brain injury, sepsis with MRSA bacteremia and MSSA pneumonia, alcoholic liver disease. Family member initially wished for full code then changed to DNR, patient treated with IV antibiotics for sepsis, status post trach and PEG on 12/13/19. Weaned off from the vent and put on T- piece. Patient is uninsured, waiting for placement, guarded prognosis. 03/07: Returning to service no acute changes are noted. Continue current management while awaiting placement. Intermittent labs. Base of neck also around tracheostomy tube preventing downgrading. Continue appropriate wound care. 03/08: Plan of care unchanged continues on aerosol trach collar 28% of oxygen. Continue wound care management placement still pending status decision. 03/09: Continue current treatment plan. Continue aspiration precaution 03/10: Continue current management, Restraints as patient still pulling, awaiting placement 03/11: Continue supportive care, intermittent suctioning and pulmonary toilet. awaiting placement. 03/12: Continue supportive care, Give a bolus of fluids due to Hypercalcemia, Monitor Hyperkalemia with labs in am, No arrhythmia. Patient vomiting, concern for aspiration, Chest xray ordered and no active disease noted. Keep HOB >45% 03/13: No evidence of aspiration on xray. Continue supportive care. / Anoxic brain injury: suspected CT head: No acute abnormality. EEG ordered showed Generalized slowing. No seizures or epileptiform activity. -Patient now opening her eyes, can speak and able to follow command -As needed haldol for agitation /Acute Respiratory failure -due to MSSA PNA -s/p intubation, s/p trach and PEG on 12/12 with mechanical ventilation, now on T-piece - CTA was done and negative for PE, - Echo quality is poor, showed diastolic dysfunction - continue weaning as tolerated -Continue appropriate and adequate tracheostomy care /Tracheostomy site ulceration -Continue appropriate wound management try to keep area dry. /Anemia, microcytic - Status post 3 units PRBC transfusion, H&H low stable /Acute metabolic encephalopathy/toxic encephalopathy due to the above - cont supportive care /Hyperammonemia - likely from liver disease related to EtOH abuse - Patient had elevated ammonia level and treated with lactulose /Metabolic Acidosis -Alcohol ketoacidosis vs hypoprofusion -Continue to monitor /ELevated LFTs, stable now - due to ischemic hepatitis. /Leucocytosis with sepsis - Source MRSA bacteremia and MSSA pneumonia. UA showed pyuria. RUQ US showed no ascites. - Repeat TTE negative for vegetation. Completed 7 days of Ceftriaxone on 11/29/2019. -Treated with Abx vancomycin 1 gm IV q 12 hour total 2 week till 12/30/2019 /Severe protein calorie malnutrition Dietitian consult to assist in management. /MSSA pneumonia: Status post vancomycin till 12/30/2019 /Alcohol use Disorder - given ongoing Alcohol use almost daily, s/p IV Thiamine - monitor /Severe hypokalemia -Repleted /Seizure disorder: treat with Keppra /H. Influenzae, tracheobronchitis, treated with abx /Moderate to severe fecal impaction - will add stool softner DNR CODE STATUS Disposition: prognosis guarded. Family okay for DNR, PT recommended subacute r ehab, discharge pending on placement. negative for COVID 19 History Interval history: Patient seen and examined no clinical change at this time continues on ATC at 28% off oxygen. Hospitalist Physical - Physical exam Narrative exam: General appearance: Present: Appears older than stated age Intermittent agitation - EENT Eyes: no scleral icterus, no conjunctival injection, pupil not reactive ENT: clear oral mucosa, dentition normal, no oropharyngeal erythema Ears: bilateral: normal - Neck Neck: trach on place with mild ulceration at the base. - Respiratory Respiratory effort: other (on T-piece) Respiratory: bilateral: rales - Cardiovascular Rhythm: regular Heart Sounds: Present: S1 & S2. Absent: gallop, rub Extremities: pulses intact, No edema, normal color - Gastrointestinal General gastrointestinal: Present: soft, non-tender, non-distended, normal bowel sounds - Integumentary Integumentary: clear, warm, dry - Musculoskeletal Musculoskeletal: No joint swelling or tenderness - Neurologic Neurologic: other (2+ reflexes throughout). respond to commend and nods head. generalized weakness, verbal - Psychiatric Psychiatric: co-operative - Constitutional Vitals: Temp Pulse Resp BP Pulse Ox 98.1 F 88 19 109/72 98 03/13/20 16:00 03/13/20 16:00 03/13/20 16:00 03/13/20 16:00 03/13/20 16:00 General appearance: Present: mild distress, cachectic, disheveled, other (Noncommunicative) HEART Score - HEART Score Troponin: Troponin T < 0.010 ng/mL (0.00-0.029) 11/22/19 23:27 Results - Labs CBC & Chem 7: 03/12/20 04:53 03/13/20 03:50 Labs: Laboratory Last Values WBC 9.1 K/mm3 (4.5-11.0) 03/12/20 04:53 RBC 3.90 M/mm3 (3.65-5.03) 03/12/20 04:53 Hgb 11.5 gm/dl (10.1-14.3) 03/12/20 04:53 Hct 34.2 % (30.3-42.9) 03/12/20 04:53 MCV 88 fl (79-97) 03/12/20 04:53 MCH 29 pg (28-32) 03/12/20 04:53 MCHC 34 % (30-34) 03/12/20 04:53 RDW 14.4 % (13.2-15.2) 03/12/20 04:53 Plt Count 625 K/mm3 (140-440) H 03/12/20 04:53 Lymph % (Auto) 27.8 % (13.4-35.0) 03/06/20 03:37 [place] % (Auto) 9.1 % (0.0-7.3) H 03/06/20 03:37 Eos % (Auto) 2.8 % (0.0-4.3) 03/06/20 03:37 Baso % (Auto) 0.7 % (0.0-1.8) 03/06/20 03:37 Lymph # 2.2 K/mm3 (1.2-5.4) 03/06/20 03:37 [place] # 0.7 K/mm3 (0.0-0.8) 03/06/20 03:37 Eos # 0.2 K/mm3 (0.0-0.4) 03/06/20 03:37 Baso # 0.1 K/mm3 (0.0-0.1) 03/06/20 03:37 Add Manual Diff Complete 12/25/19 03:47 Total Counted 200 12/25/19 03:47 Seg Neutrophils % 59.6 % (40.0-70.0) 03/06/20 03:37 Seg Neuts % (Manual) 97.5 % (40.0-70.0) H 12/25/19 03:47 Band Neutrophils % 0 % 12/25/19 03:47 Lymphocytes % (Manual) 1.0 % (13.4-35.0) L 12/25/19 03:47 Reactive Lymphs % (Man) 0 % 12/25/19 03:47 Monocytes % (Manual) 1.5 % (0.0-7.3) 12/25/19 03:47 Eosinophils % (Manual) 0 % (0.0-4.3) 12/25/19 03:47 Basophils % (Manual) 0 % (0.0-1.8) 12/25/19 03:47 Metamyelocytes % 0 % 12/25/19 03:47 Myelocytes % 0 % 12/25/19 03:47 Promyelocytes % 0 % 12/25/19 03:47 Blast Cells % 0 % 12/25/19 03:47 Nucleated RBC % Not Reportable 12/25/19 03:47 Seg Neutrophils # 4.8 K/mm3 (1.8-7.7) 03/06/20 03:37 Seg Neutrophils # Man 35.3 K/mm3 (1.8-7.7) H 12/25/19 03:47 Band Neutrophils # 0.0 K/mm3 12/25/19 03:47 Lymphocytes # (Manual) 0.4 K/mm3 (1.2-5.4) L 12/25/19 03:47 Abs React Lymphs (Man) 0.0 K/mm3 12/25/19 03:47 Monocytes # (Manual) 0.5 K/mm3 (0.0-0.8) 12/25/19 03:47 Eosinophils # (Manual) 0.0 K/mm3 (0.0-0.4) 12/25/19 03:47 Basophils # (Manual) 0.0 K/mm3 (0.0-0.1) 12/25/19 03:47 Metamyelocytes # 0.0 K/mm3 12/25/19 03:47 Myelocytes # 0.0 K/mm3 12/25/19 03:47 Promyelocytes # 0.0 K/mm3 12/25/19 03:47 Blast Cells # 0.0 K/mm3 12/25/19 03:47 Pathologist Review 12/13/19 07:48 WBC Morphology Not Reportable 12/25/19 03:47 Hypersegmented Neuts Not Reportable 12/25/19 03:47 Hyposegmented Neuts Not Reportable 12/25/19 03:47 Hypogranular Neuts Not Reportable 12/25/19 03:47 Smudge Cells Not Reportable 12/25/19 03:47 Toxic Granulation Not Reportable 12/25/19 03:47 Toxic Vacuolation Not Reportable 12/25/19 03:47 Dohle Bodies Not Reportable 12/25/19 03:47 Pelger-Huet Anomaly Not Reportable 12/25/19 03:47 Dominique Rods Not Reportable 12/25/19 03:47 Platelet Estimate Consistent w auto 12/25/19 03:47 Clumped Platelets Not Reportable 12/25/19 03:47 Plt Clumps, EDTA Not Reportable 12/25/19 03:47 Large Platelets Not Reportable 12/25/19 03:47 Giant Platelets Not Reportable 12/25/19 03:47 Platelet Satelliting Not Reportable 12/25/19 03:47 Plt Morphology Comment Not Reportable 12/25/19 03:47 RBC Morphology Not Reportable 12/25/19 03:47 Dimorphic RBCs Not Reportable 12/25/19 03:47 Polychromasia Not Reportable 12/25/19 03:47 Hypochromasia Not Reportable 12/25/19 03:47 Poikilocytosis Not Reportable 12/25/19 03:47 Anisocytosis 1+ 12/25/19 03:47 Microcytosis Not Reportable 12/25/19 03:47 Macrocytosis Not Reportable 12/25/19 03:47 Spherocytes Not Reportable 12/25/19 03:47 Pappenheimer Bodies Not Reportable 12/25/19 03:47 Sickle Cells Not Reportable 12/25/19 03:47 Target Cells Not Reportable 12/25/19 03:47 Tear Drop Cells Not Reportable 12/25/19 03:47 Ovalocytes Not Reportable 12/25/19 03:47 Helmet Cells Not Reportable 12/25/19 03:47 Frias-Anton Ruiz Bodies Not Reportable 12/25/19 03:47 [place] Rings Not Reportable 12/25/19 03:47 [place] Cells Not Reportable 12/25/19 03:47 Bite Cells Not Reportable 12/25/19 03:47 Crenated Cell Not Reportable 12/25/19 03:47 Elliptocytes Not Reportable 12/25/19 03:47 Acanthocytes (Spur) Not Reportable 12/25/19 03:47 Rouleaux Not Reportable 12/25/19 03:47 Hemoglobin C Crystals Not Reportable 12/25/19 03:47 Schistocytes Not Reportable 12/25/19 03:47 Malaria parasites Not Reportable 12/25/19 03:47 Gregg Bodies Not Reportable 12/25/19 03:47 Hem Pathologist Commnt No 12/25/19 03:47 PT 17.0 Sec. (12.2-14.9) H 11/23/19 03:47 INR 1.36 (0.87-1.13) H 11/23/19 03:47 APTT 128.2 Sec. (24.2-36.6) H* 11/23/19 03:47 Heparin Anti-Xa Level 0.31 U.I./ml (0.3-0.7) 11/23/19 09:03 ABG pH 7.433 pH Units (7.350-7.450) 03/08/20 13:25 ABG pCO2 40.2 mm Hg 03/08/20 13:25 ABG pO2 71.1 mm Hg (80.0-90.0) L 03/08/20 13:25 ABG HCO3 26.2 mmol/L (20.0-26.0) H 03/08/20 13:25 ABG O2 Saturation 97.0 % (95.0-99.0) 03/08/20 13:25 ABG O2 Content 11.0 (0.0-44) 03/08/20 13:25 ABG Base Excess 1.8 mmol/L (-2.0-3.0) 03/08/20 13:25 ABG Hemoglobin 8.2 gm/dl (12.0-16.0) L 03/08/20 13:25 ABG Carboxyhemoglobin 1.7 % (0.0-5.0) 03/08/20 13:25 ABG Methemoglobin 0.5 % (0.0-1.5) 03/08/20 13:25 Oxyhemoglobin 94.8 % (95.0-99.0) L 03/08/20 13:25 FiO2 21 % 03/08/20 13:25 Sodium 137 mmol/L (137-145) 03/13/20 03:50 Potassium 3.8 mmol/L (3.6-5.0) D 03/13/20 03:50 Chloride 103.1 mmol/L (98-107) 03/13/20 03:50 Carbon Dioxide 20 mmol/L (22-30) L 03/13/20 03:50 Anion Gap 18 mmol/L 03/13/20 03:50 BUN 30 mg/dL (7-17) H 03/13/20 03:50 Creatinine 0.6 mg/dL (0.7-1.2) L 03/13/20 03:50 Estimated GFR > 60 ml/min 03/13/20 03:50 BUN/Creatinine Ratio 50 % 03/13/20 03:50 Glucose 153 mg/dL (65-100) H 03/13/20 03:50 POC Glucose 98 (70-105) 03/13/20 14:02 Lactic Acid 1.80 mmol/L (0.7-2.0) 11/25/19 05:05 Calcium 10.0 mg/dL (8.4-10.2) 03/13/20 03:50 Ionized Calcium 4.5 mg/dL (4.8-5.6) L 11/23/19 06:32 Phosphorus 4.20 mg/dL (2.5-4.5) D 11/28/19 08:59 Magnesium 1.90 mg/dL (1.7-2.3) 02/28/20 03:40 Total Bilirubin 0.40 mg/dL (0.1-1.2) 12/13/19 07:48 AST 27 units/L (5-40) 12/13/19 07:48 ALT 26 units/L (7-56) 12/13/19 07:48 Alkaline Phosphatase 316 units/L (35-129) H 12/13/19 07:48 Ammonia 42.0 umol/L (25-60) 11/29/19 13:41 Total Creatine Kinase 139 units/L (30-135) H 11/22/19 23:27 CK-MB (CK-2) 8.3 ng/mL (0.0-4.0) H 11/22/19 23:27 CK-MB (CK-2) Rel Index 5.9 (0-4) H 11/22/19 23:27 Troponin T < 0.010 ng/mL (0.00-0.029) 11/22/19 23:27 Total Protein 6.8 g/dL (6.3-8.2) 12/13/19 07:48 Albumin 2.4 g/dL (3.9-5) L 12/13/19 07:48 Albumin/Globulin Ratio 0.5 % 12/13/19 07:48 Lipase 18 units/L (13-60) 11/23/19 00:34 Procalcitonin 1.09 ng/mL (<0.15) 11/23/19 04:53 TSH 1.010 mlU/mL (0.270-4.200) 02/12/20 07:36 Free T4 1.08 ng/dL (0.76-1.46) 02/12/20 07:36 Urine Color Yellow (Yellow) 12/16/19 Unknown Urine Turbidity Slightly-cloudy (Clear) 12/16/19 Unknown Urine pH 5.0 (5.0-7.0) 12/16/19 Unknown Ur Specific [place] 1.018 (1.003-1.030) 12/16/19 Unknown Urine Protein 30 mg/dl mg/dL (Negative) 12/16/19 Unknown Urine Glucose (UA) Neg mg/dL (Negative) 12/16/19 Unknown Urine Ketones Neg mg/dL (Negative) 12/16/19 Unknown Urine Blood Sm (Negative) 12/16/19 Unknown Urine Nitrite Neg (Negative) 12/16/19 Unknown Urine Bilirubin Neg (Negative) 12/16/19 Unknown Urine Urobilinogen < 2.0 mg/dL (<2.0) 12/16/19 Unknown Ur Leukocyte Esterase Neg (Negative) 12/16/19 Unknown Urine WBC (Auto) 6.0 /HPF (0.0-6.0) 12/16/19 Unknown Urine RBC (Auto) 9.0 /HPF (0.0-6.0) 12/16/19 Unknown U Epithel Cells (Auto) < 1.0 /HPF (0-13.0) 12/16/19 Unknown Urine Bacteria (Auto) 2+ /HPF (Negative) 11/22/19 23:17 Hyaline Casts 3 /LPF 12/16/19 Unknown Granular Casts 3 /LPF 12/16/19 Unknown Urine Mucus Few /HPF 12/16/19 Unknown Vancomycin Trough 33.8 ug/mL (5.0-20.0) H 12/21/19 08:56 Random Vancomycin 16.2 ug/mL (0-40.0) 12/24/19 04:31 Salicylates < 0.3 mg/dL (2.8-20.0) L 11/22/19 23:27 Urine Opiates Screen Presumptive negative 11/22/19 23:17 Urine Methadone Screen Presumptive negative 11/22/19 23:17 Acetaminophen < 5.0 ug/mL (10.0-30.0) L 11/22/19 23:27 Ur Barbiturates Screen Presumptive negative 11/22/19 23:17 Ur Phencyclidine Scrn Presumptive negative 11/22/19 23:17 Ur Amphetamines Screen Presumptive negative 11/22/19 23:17 U Benzodiazepines Scrn Presumptive negative 11/22/19 23:17 Urine Cocaine Screen Presumptive negative 11/22/19 23:17 U Marijuana (THC) Screen Presumptive negative 11/22/19 23:17 Drugs of Abuse Note Disclamer 11/22/19 23:17 Plasma/Serum Alcohol 0.08 % (0-0.07) H 11/22/19 23:27 Coronavirus (PCR) Negative (Negative) 02/05/20 07:50 Hepatitis A IgM Ab Non-reactive (NonReactive) 11/23/19 01:19 Hep Bs Antigen Non-reactive (Negative) 11/23/19 01:19 Hep B Core IgM Ab Non-reactive (NonReactive) 11/23/19 01:19 Hepatitis C Antibody Non-reactive (NonReactive) 11/23/19 01:19 Blood Type O POSITIVE 12/21/19 14:54 Antibody Screen Negative 12/21/19 14:54 Crossmatch See Detail 12/21/19 14:54 - Diagnostic Impressions Diagnostic Impressions: Echocardiogram 11/23/19 03:58 Transthoracic Echocardiogram Indication: Cardiac arrest BP: 131/89 HR: 115 Conclusions *The study quality is technically difficult. *Global left ventricular wall motion and contractility are within normal limits. *The estimated ejection fraction is 55-60%. *Abnormal left ventricular diastolic filling is observed, consistent with impaired relaxation. *There is no pericardial effusion. Findings Procedure Info: The study quality is technically difficult. The study was technically limited due to the patient's inability to lay in the left lateral decubitus position. Left Ventricle: The left ventricular chamber size is normal. There is no left ventricular hypertrophy. Global left ventricular wall motion and contractility are within normal limits. Global left ventricular systolic function is normal. The estimated ejection fraction is 55-60%. Abnormal left ventricular diastolic filling is observed, consistent with impaired relaxation. Left Atrium: The left atrial chamber size is normal. Aortic Valve: The aortic valve leaflets are mildly thickened. Mitral Valve: The mitral valve leaflets are mildly thickened. There is no evidence of mitral regurgitation. Tricuspid Valve: The tricuspid valve leaflets are normal. There is trace tricuspid regurgitation. The right ventricular systolic pressure is calculated at 33 mmHg. Pulmonic Valve: The pulmonic valve appears normal. Pericardium: The pericardium appears normal. There is no pericardial effusion. Aorta: The aorta appears normal. Venous: The inferior vena cava appears normal in size. Measurements Chambers 2D Name Value Normal Range IVSd (2D) 0.94 cm (0.6 - 1.1) LVPWd (2D) 0.81 cm (0.6 - 1.1) LVIDd (2D) 3.6 cm (3.7 - 5.6) LVIDs (2D) 2.27 cm (2 - 3.8) LV FS (2D) 36.93 % - EF Teichholz (2D) 67.76 % - Ao root diameter (2D) 3.03 cm (2 - 3.7) Volumes/Mass Name Value Normal Range LA ESV SP 4CH (A/L) 16.89 ml - LA ESV SP 4CH (MOD) 15.52 ml - Diastolic/Systolic Function Name Value Normal Range MV E-wave Vmax 0.55 m/sec - MV deceleration time 200.89 msec - MV A-wave Vmax 0.68 m/sec - MV E:A ratio 0.82 ratio - Aortic Valve Name Value Normal Range AV Vmax 1.1 m/sec - AV VTI 15.9 cm - AV peak gradient 4.86 mmHg - AV mean gradient 2.59 mmHg - LVOT diameter 2 cm - LVOT Vmax 1.03 m/sec - LVOT VTI 15.87 cm - LVOT peak gradient 4.24 mmHg - LVOT mean gradient 2.41 mmHg - SV LVOT 49.77 ml - JOSÉ MIGUEL (continuity Vmax) 2.93 cm2 - JOSÉ MIGUEL (continuity VTI) 3.13 cm2 - Tricuspid Valve Name Value Normal Range TR Vmax 2.74 m/sec - TR peak gradient 303 mmHg - RAP 3 mmHg - RVSP 33 mmHg - IVC diameter 1.77 cm (1.2 - 2.3) Pulmonic Valve/Qp:Qs Name Value Normal Range PV Vmax 0.77 m/sec - PV peak gradient 2.4 mmHg - PV acceleration time 114.18 msec - Echocardiogram Limited Views 12/17/19 14:53 Transthoracic Echocardiogram Indication: R/O Vegetations BP: 144/83 HR: 133 Conclusions *Global left ventricular systolic function is mildly decreased. *The estimated ejection fraction is 45-50%. *A trivial pericardial effusion is visualized. Findings Left Ventricle: The left ventricular chamber size is normal. Global left ventricular systolic function is mildly decreased. The estimated ejection fraction is 45-50%. Left Atrium: The left atrial chamber size is normal. Right Ventricle: The right ventricular cavity size is normal. Right Atrium: The right atrial cavity size is normal. Aortic Valve: The aortic valve is not well visualized. There is no evidence of aortic regurgitation. Mitral Valve: The mitral valve leaflets are mildly thickened. There is trace of mitral regurgitation. Tricuspid Valve: The tricuspid valve leaflets are mildly thickened. There is trace tricuspid regurgitation. The right ventricular systolic pressure is calculated at 29 mmHg. Pulmonic Valve: The pulmonic valve is not well visualized. There is no evidence of pulmonic regurgitation. Pericardium: A trivial pericardial effusion is visualized. Aorta: There is no dilatation of the ascending aorta. There is no dilatation of the aortic root. Venous: The inferior vena cava appears normal in size. There is a greater than 50% respiratory change in the inferior vena cava dimension. Measurements Chambers 2D Name Value Normal Range IVSd (2D) 0.83 cm (0.6 - 1.1) LVPWd (2D) 0.98 cm (0.6 - 1.1) LVIDd (2D) 3.71 cm (3.7 - 5.6) LVIDs (2D) 2.93 cm (2 - 3.8) LV FS (2D) 21.12 % - EF Teichholz (2D) 43.71 % - Ao root diameter (2D) 3.02 cm (2 - 3.7) Volumes/Mass Name Value Normal Range LA ESV SP 4CH (A/L) 36.8 ml - LA ESV SP 2CH (A/L) 45.89 ml - LA ESV BP (A/L) 42.35 ml - LA ESV BP (A/L) index 26.63 ml/m2 - LA ESV SP 4CH (MOD) 34.42 ml - LA ESV SP 2CH (MOD) 44.21 ml - LA ESV BP (MOD) 39.82 ml - LA ESV BP (MOD) index 25.05 ml/m2 - Aortic Valve Name Value Normal Range LVOT diameter 1.63 cm - Tricuspid Valve Name Value Normal Range TR Vmax 2.56 m/sec - TR peak gradient 26 mmHg - RAP 3 mmHg - RVSP 29 mmHg - IVC diameter 1.83 cm (1.2 - 2.3) [place]/IV: Voiding Method Incontinent IV Catheter Type [Forearm] Peripheral IV IV Catheter Type [Left Forearm INT / Saline Lock ] IV Catheter Type [Right INT / Saline Lock Antecubital] IV Catheter Type [Right Hand] Peripheral IV IV Catheter Type [Right Wrist] Peripheral IV IV Catheter Type [Left Wrist] Peripheral IV IV Catheter Type [Left Peripheral IV Antecubital] IV Catheter Type [Right INT / Saline Lock Forearm] IV Catheter Type [Left Hand] INT / Saline Lock Active Medications - Current Medications Current Medications: Generic Name Dose Route Start Last Admin Trade Name Freq PRN Reason Stop Dose Admin Acetaminophen 650 mg 12/06/19 10:25 03/13/20 12:14 Tylenol FEEDTUBE 650 mg Q6H PRN Administration TEMP >/=100.3 Acetylcysteine 200 mg 02/16/20 20:00 03/13/20 08:03 Mucomyst Inhalation INHALATION 200 mg Q12HRT LUCHO Administration Alprazolam 1 mg 02/21/20 18:24 03/13/20 03:13 Xanax PO 1 mg Q8H PRN Administration Anxiety Amoxicillin/Clavulanate Potassium 1 each 03/09/20 14:00 03/13/20 12:18 Augmentin 875 Mg PO 03/15/20 22:01 1 each Q12HR LUCHO Administration Lipase/Protease/Amylase 1 each 11/23/19 11:[address] 10,500 Unit FEEDTUBE PRN PRN Use w/ sod bicarb for FT Bisacodyl 10 mg 02/06/20 13:57 Dulcolax GA QDAY PRN Constipation unrelieved by MOM Dexamethasone 8 mg 03/13/20 18:00 Decadron IV 03/14/20 23:59 Q6HR LUCHO Docusate Sodium 100 mg 02/18/20 22:00 03/13/20 12:20 Colace FEEDTUBE Not Given BID [facility] Enoxaparin Sodium 40 mg 03/07/20 22:00 03/12/20 21:43 Enoxaparin SUB-Q 40 mg QDAY@2200 LUCHO Administration Glycopyrrolate 2 mg 12/31/19 20:00 03/13/20 12:20 Robinul PO 2 mg TID LUCHO Administration Haloperidol Lactate 5 mg 03/05/20 09:22 03/13/20 08:50 Haldol IM 5 mg Q6H PRN Administration Agitation Hydralazine HCl 10 mg 11/24/19 00:45 03/03/20 05:57 Apresoline IV 10 mg Q6H PRN Administration SBP > 160 Hydroxyzine Pamoate 25 mg 12/06/19 10:00 03/13/20 13:00 Vistaril PO Not Given BID LUCHO Lansoprazole 30 mg 11/27/19 10:00 03/13/20 12:16 Prevacid Solutab FEEDTUBE 30 mg QDAY LUCHO Administration Levalbuterol HCl 0.63 mg 02/17/20 00:00 03/13/20 15:12 Xopenex IH 0.63 mg Q8HRT LUCHO Administration Levetiracetam 500 mg 11/29/19 10:00 03/13/20 12:33 Keppra PO 500 mg BID LUCHO Administration Metoprolol Tartrate 12.5 mg 02/23/20 22:00 03/13/20 12:16 Metoprolol PO 12.5 mg BID LUCHO Administration Mirtazapine 30 mg 12/06/19 10:00 03/13/20 12:19 Remeron PO 30 mg DAILY LUCHO Administration Nicotine 21 mg 02/16/20 13:00 03/13/20 12:16 Habitrol TD 21 mg QDAY LUCHO Administration Ondansetron HCl 4 mg 12/10/19 07:53 02/25/20 02:51 Zofran IV 4 mg Q4H PRN Administration Nausea And Vomiting Polyethylene Glycol 17 gm 02/06/20 13:57 Miralax 3350 PO QDAY PRN Constipation Quetiapine Fumarate 100 mg 03/06/20 10:00 03/13/20 12:21 Seroquel FEEDTUBE 100 mg BID LUCHO Administration Scopolamine 1 each 02/08/20 15:00 03/12/20 10:20 Transderm-Scop TD 1 each Q3D LUCHO Administration Sertraline HCl 25 mg 01/01/20 10:00 03/13/20 12:19 Zoloft PO 25 mg QDAY LUCHO Administration Simple Syrup 15 ml 11/23/19 11:50 Simple Syrup FEEDTUBE PRN PRN Hypoglycemia BG<70 Simple Syrup 30 ml 11/23/19 11:50 Simple Syrup FEEDTUBE PRN PRN Hypoglycemia Sodium Bicarbonate 325 mg 11/23/19 11:50 Sodium Bicarbonate FEEDTUBE PRN PRN For Clogged Feeding Tube Nutrition/Malnutrition Assess - Dietary Evaluation Nutrition/Malnutrition Findings: Nutrition Notes Start: 11/23/19 11:29 Freq: Status: Active Protocol: Document 03/13/20 14:31 LM (Rec: 03/13/20 14:32 LM [id number]) Nutrition Notes Initial or Follow up Reassessment Current Diagnosis Hypertension Other Pertinent Diagnosis Cardaic arrest, ETOH dependence, UTI Current Diet Jevity 1.2 at 60ml/hr Labs/Tests Reviewed Pertinent Medications Reviewed Height 5 ft 6 in Weight 46.7 kg [place] Body Weight (kg) 59.09 BMI 16.6 Subjective/Other Information Pt tolerating TF at goal. Percent of energy/protein needs met: 97%/100% Burn Absent Trauma Absent GI Symptoms None Current % PO Negligible Interpretation of Weight Loss (severe) >2% in 1 week Muscle Mass Mild Depletion (non-severe) #2 Nutrition Diagnosis Malnutrition Diagnosis Progress(for reassessment Continues documentation) #1 Diagnosis Progress(for reassessment Continues documentation) Is patient on ventilator? No Is Patient Ambulatory and/or Out of Bed No REE-([place]-confined to bed) 1305.120 Kcal/Kg value to use for calculation 38 Approximate Energy Requirements Using 1775 kcal/Kg Calculation Used for Recommendations Kcal/kg Additional Notes Protein: 60-75g (1.2-1.5g/kg) Fluid: 1 ml/kcal Nutrition Intervention Change Diet Order: Continue TF Nutrition Support: Jevity 1.2 at 60ml/hr Flush 100ml q4h Kcal 1,728 Protein (gm) 80 Fluid (mL) 1,162 Goal #1 TF tolerance Goal #2 Meet at least 80% of energy and protein needs via TF Goal #3 Wt gain/maintenacne Anticipated Discharge Needs: TF Follow-Up By: 03/20/20 Additional Comments F/U for TF tolerance
[2020-03-13] MEDS: dexAMETHasone 20 MG/5 ML VIAL IV SCH (18:34)
[2020-03-13] MEDS: ENOXAPARIN 40 MG/0.4 ML INJ SUB-Q SCH (21:19)
[2020-03-14] MEDS: dexAMETHasone 20 MG/5 ML VIAL IV SCH ×4 (00:12→17:24)
[2020-03-14] MEDS: HALOPERIDOL LACTATE 5 MG/1 ML INJ IM PRN ×2 (03:01→17:23)
[2020-03-14] MEDS: LEVALBUTEROL 0.63 MG/3 ML NEBU IH SCH ×4 (03:43→21:14)
[2020-03-14] MEDS: GLYCOPYRROLATE 1 MG TAB PO SCH ×3 (09:04→20:41)
[2020-03-14] MEDS: DOCUSATE SODIUM 100 MG/10 ML ORAL LIQD FEEDTUBE SCH ×2 (10:04→21:40)
[2020-03-14] MEDS: QUEtiapine 100 MG TAB FEEDTUBE SCH ×2 (10:05→21:41)
[2020-03-14] MEDS: levETIRAcetam 500 MG/5 ML ORAL LIQD PO SCH ×2 (10:05→21:41)
[2020-03-14] MEDS: LANSOPRAZOLE 30 MG SOLUTAB FEEDTUBE SCH (10:05)
[2020-03-14] MEDS: SERTRALINE 50 MG TAB PO SCH (10:05)
[2020-03-14] MEDS: MIRTAZAPINE 30 MG TAB PO SCH (10:05)
[2020-03-14] MEDS: AMOXICILLIN/K CLAV 875/125MG TAB PO SCH ×2 (10:06→21:41)
[2020-03-14] MEDS: METOPROLOL TARTRATE 25 MG TAB PO SCH ×2 (10:06→21:41)
[2020-03-14] MEDS: NICOTINE 21 MG/24 HR PATCH TD SCH (10:06)
[2020-03-14] MEDS: ACETYLCYSTEINE 20% 200 MG/1 ML *FOR INHALATION USE INHALATION SCH ×2 (10:38→21:14)
--- NOTE | 2020-03-14 12:25 | Progress Note ---
Assessment and Plan Acute cardiopulmonary arrest with ROSC Acute hypoxemic respiratory failure s/p MVS s/p Tracheostomy Oropharyngeal dysphagia s/p PEG MRSA Bacteremia- treated MRSA pneumonia-treated Acute pngmlyvro-[id number]-vukiro encephalopathy Metabolic acidosis/alcoholic acidosis/Lactic acidosis( resolved) Ischemic hepatitis Erythrocytosis Tobacco use disorder Alcohol use Disorder Start capping trials as tolerated PT/OT, increase activity Aspiration precautions Continue all supportive care Fall precautions, remains impulsive Discharge planning -CBC, BMP prn -Replace and correct electrolytes as indicated -Trach care, airway clearance, secretion management(continue scopolamine patch and Robinul) -CXR, ABG prn -Continue contact isolation for MRSA -Trend WCC and temperature curve -PT/OT -Supportive transfusions as indicated for HgB <7g/dL -Continue aspiration precautions, HOB>40 -Continue enteric nutritional support at goal rate. -Continue to monitor glycemic control, with target blood glucose 140-180 mg/dL while critically ill. -Avoid hypoglycemia - Continue to wean supplemental oxygen for target O2 sat's > 90% -Continue thiamine, multivitamin and electrolyte replacement -Continue to avoid nephrotoxins, adjust all medications for GFR and CrCL - Continue bronchodilators with pulmonary hygiene - Continue to maintain of sleep-wake cycle, avoid delirium - Continue mobility protocol and skin assessment per protocol for pressure ulcer prevention - Continue to monitor for clinical seizures - continue other care per attending / other consultants CONDITION: FAIR PROGNOSIS: FAIR CODE STATUS: DNAR Subjective Date of service: 03/14/20 Principal diagnosis: Ac cardiopulmonary arrest; Ac hypoxemic resp failure; Acute encephalopathy Interval history: Patient is seen today for: Acute cardiopulmonary arrest with ROSC; Acute hypoxemic respiratory failure; Acute metabolic-toxic encephalopathy; Ischemic hepatitis; Leucocytosis with lactic acidosis; Tobacco use disorder; Alcohol use Disorder; s/p tracheostomy; s/p PEG Seen and examined at bedside; 24hour events reviewed; nursing and respiratory care staff consulted; no adverse overnight events reported to me; resting peacefully in bed; continues to tolerate ATP- ongoing secretions. Vomited yesterday, CXR was ordered for concerns of aspiration- CXR was negative for any new infiltrates Awake and alert, responsive but episodes of confusion Objective Vital Signs - 12hr 03/14/20 03/14/20 03/14/20 03:46 03:47 03:56 Temperature 98.0 F Pulse Rate [ 86 Anterior Bilateral Throughout] Respiratory 18 Rate Respiratory 19 Rate [Anterior Bilateral Throughout] Blood Pressure 161/100 O2 Sat by Pulse 97 Oximetry [ Assessment] 03/14/20 03/14/20 08:49 10:00 Temperature 98.4 F Pulse Rate [ Anterior Bilateral Throughout] Respiratory 18 18 Rate Respiratory Rate [Anterior Bilateral Throughout] Blood Pressure 163/95 O2 Sat by Pulse Oximetry [ Assessment] Constitutional: no acute distress, asleep Eyes: non-icteric ENT: oropharynx moist, other (s/p trach) Neck: supple, no lymphadenopathy, no JVD Effort: normal Ascultation: Bilateral: diminished breath sounds, rhonchi Percussion: Bilateral: not dull Cardiovascular: regular rate and rhythm (tachycardia), other (S1,S2) Gastrointestinal: normoactive bowel sounds, soft, non-tender, non-distended Integumentary: normal Extremities: no cyanosis, no edema, pulses normal, no ischemia or petechiae Neurologic: normal mental status, non-focal exam, pupils equal and round Psychiatric: mood appropriate, affect normal, anxious, other (Agitated) CBC and BMP: 03/12/20 04:53 03/13/20 03:50 ABG, PT/INR, D-dimer: ABG ABG pH 7.433 pH Units (7.350-7.450) 03/08/20 13:25 ABG pCO2 40.2 mm Hg 03/08/20 13:25 ABG pO2 71.1 mm Hg (80.0-90.0) L 03/08/20 13:25 ABG O2 Saturation 97.0 % (95.0-99.0) 03/08/20 13:25 PT/INR, D-dimer PT 17.0 Sec. (12.2-14.9) H 11/23/19 03:47 INR 1.36 (0.87-1.13) H 11/23/19 03:47 Abnormal lab findings: Abnormal Labs 11/22/19 11/22/19 11/22/19 23:17 23:18 23:27 WBC 21.2 H RBC 3.59 L Hgb 9.8 L Hct MCH 27 L RDW 18.6 H Plt Count 454 H Lymph % (Auto) [place] % (Auto) [place] # Baso # Seg Neutrophils % Seg Neuts % (Manual) 86.0 H Lymphocytes % (Manual) 9.0 L Monocytes % (Manual) Seg Neutrophils # Seg Neutrophils # Man 18.2 H Lymphocytes # (Manual) Monocytes # (Manual) 1.1 H Eosinophils # (Manual) Basophils # (Manual) PT INR APTT ABG pH ABG pO2 ABG HCO3 ABG O2 Saturation ABG Base Excess ABG Hemoglobin Oxyhemoglobin Sodium Potassium Chloride Carbon Dioxide BUN Creatinine Glucose POC Glucose 53 L Lactic Acid Calcium Ionized Calcium Phosphorus Magnesium Total Bilirubin AST ALT Alkaline Phosphatase Ammonia Total Creatine Kinase CK-MB (CK-2) CK-MB (CK-2) Rel Index Total Protein Albumin Urine WBC (Auto) 40.0 H Vancomycin Trough Salicylates Acetaminophen Plasma/Serum Alcohol Crossmatch 11/22/19 11/22/19 11/22/19 23:27 23:27 23:27 WBC RBC Hgb Hct MCH RDW Plt Count Lymph % (Auto) [place] % (Auto) [place] # Baso # Seg Neutrophils % Seg Neuts % (Manual) Lymphocytes % (Manual) Monocytes % (Manual) Seg Neutrophils # Seg Neutrophils # Man Lymphocytes # (Manual) Monocytes # (Manual) Eosinophils # (Manual) Basophils # (Manual) PT INR APTT ABG pH ABG pO2 ABG HCO3 ABG O2 Saturation ABG Base Excess ABG Hemoglobin Oxyhemoglobin Sodium Potassium 2.4 L* Chloride 85.1 L Carbon Dioxide 19 L BUN Creatinine 0.5 L Glucose 261 H POC Glucose Lactic Acid Calcium Ionized Calcium Phosphorus Magnesium Total Bilirubin AST 609 H ALT 152 H Alkaline Phosphatase 160 H Ammonia 117.0 H Total Creatine Kinase 139 H CK-MB (CK-2) 8.3 H CK-MB (CK-2) Rel Index 5.9 H Total Protein Albumin 3.6 L Urine WBC (Auto) Vancomycin Trough Salicylates < 0.3 L Acetaminophen Plasma/Serum Alcohol Crossmatch 11/22/19 11/22/19 11/23/19 23:27 23:27 01:10 WBC RBC Hgb Hct MCH RDW Plt Count Lymph % (Auto) [place] % (Auto) [place] # Baso # Seg Neutrophils % Seg Neuts % (Manual) Lymphocytes % (Manual) Monocytes % (Manual) Seg Neutrophils # Seg Neutrophils # Man Lymphocytes # (Manual) Monocytes # (Manual) Eosinophils # (Manual) Basophils # (Manual) PT INR APTT ABG pH 7.273 L ABG pO2 209.7 H ABG HCO3 ABG O2 Saturation 99.2 H ABG Base Excess -3.9 L ABG Hemoglobin 10.6 L Oxyhemoglobin 93.9 L Sodium Potassium Chloride Carbon Dioxide BUN Creatinine Glucose POC Glucose Lactic Acid Calcium Ionized Calcium Phosphorus Magnesium Total Bilirubin AST ALT Alkaline Phosphatase Ammonia Total Creatine Kinase CK-MB (CK-2) CK-MB (CK-2) Rel Index Total Protein Albumin Urine WBC (Auto) Vancomycin Trough Salicylates Acetaminophen < 5.0 L Plasma/Serum Alcohol 0.08 H Crossmatch 11/23/19 11/23/19 11/23/19 01:19 01:19 03:47 WBC RBC Hgb Hct MCH RDW Plt Count Lymph % (Auto) [place] % (Auto) [place] # Baso # Seg Neutrophils % Seg Neuts % (Manual) Lymphocytes % (Manual) Monocytes % (Manual) Seg Neutrophils # Seg Neutrophils # Man Lymphocytes # (Manual) Monocytes # (Manual) Eosinophils # (Manual) Basophils # (Manual) PT 16.3 H INR 1.29 H APTT ABG pH ABG pO2 ABG HCO3 ABG O2 Saturation ABG Base Excess ABG Hemoglobin Oxyhemoglobin Sodium Potassium Chloride Carbon Dioxide BUN Creatinine Glucose POC Glucose Lactic Acid 2.10 H* 5.00 H* Calcium Ionized Calcium Phosphorus Magnesium Total Bilirubin AST ALT Alkaline Phosphatase Ammonia Total Creatine Kinase CK-MB (CK-2) CK-MB (CK-2) Rel Index Total Protein Albumin Urine WBC (Auto) Vancomycin Trough Salicylates Acetaminophen Plasma/Serum Alcohol Crossmatch 11/23/19 11/23/19 11/23/19 03:47 03:47 04:53 WBC RBC Hgb 9.4 L Hct MCH RDW Plt Count Lymph % (Auto) [place] % (Auto) [place] # Baso # Seg Neutrophils % Seg Neuts % (Manual) Lymphocytes % (Manual) Monocytes % (Manual) Seg Neutrophils # Seg Neutrophils # Man Lymphocytes # (Manual) Monocytes # (Manual) Eosinophils # (Manual) Basophils # (Manual) PT 17.0 H INR 1.36 H APTT 128.2 H* ABG pH ABG pO2 ABG HCO3 ABG O2 Saturation ABG Base Excess ABG Hemoglobin Oxyhemoglobin Sodium Potassium Chloride Carbon Dioxide 18 L BUN Creatinine 0.5 L Glucose 105 H POC Glucose Lactic Acid Calcium 8.3 L Ionized Calcium Phosphorus 2.40 L Magnesium Total Bilirubin 1.30 H AST 761 H ALT 158 H Alkaline Phosphatase 143 H Ammonia Total Creatine Kinase CK-MB (CK-2) CK-MB (CK-2) Rel Index Total Protein Albumin 2.8 L Urine WBC (Auto) Vancomycin Trough Salicylates Acetaminophen Plasma/Serum Alcohol Crossmatch 11/23/19 11/23/19 11/23/19 05:12 06:32 06:32 WBC 16.8 H RBC 3.31 L Hgb 8.9 L Hct 28.7 L MCH 27 L RDW 18.6 H Plt Count Lymph % (Auto) [place] % (Auto) [place] # Baso # Seg Neutrophils % Seg Neuts % (Manual) 94.0 H Lymphocytes % (Manual) 1.0 L Monocytes % (Manual) Seg Neutrophils # Seg Neutrophils # Man 15.8 H Lymphocytes # (Manual) 0.2 L Monocytes # (Manual) Eosinophils # (Manual) Basophils # (Manual) PT INR APTT ABG pH ABG pO2 ABG HCO3 ABG O2 Saturation ABG Base Excess -3.2 L ABG Hemoglobin 9.0 L Oxyhemoglobin 93.6 L Sodium Potassium Chloride Carbon Dioxide BUN Creatinine Glucose POC Glucose Lactic Acid Calcium Ionized Calcium 4.5 L Phosphorus Magnesium Total Bilirubin AST ALT Alkaline Phosphatase Ammonia Total Creatine Kinase CK-MB (CK-2) CK-MB (CK-2) Rel Index Total Protein Albumin Urine WBC (Auto) Vancomycin Trough Salicylates Acetaminophen Plasma/Serum Alcohol Crossmatch 11/23/19 11/24/19 11/24/19 06:32 04:35 04:35 WBC RBC Hgb Hct MCH RDW Plt Count Lymph % (Auto) [place] % (Auto) [place] # Baso # Seg Neutrophils % Seg Neuts % (Manual) Lymphocytes % (Manual) Monocytes % (Manual) Seg Neutrophils # Seg Neutrophils # Man Lymphocytes # (Manual) Monocytes # (Manual) Eosinophils # (Manual) Basophils # (Manual) PT INR APTT ABG pH ABG pO2 ABG HCO3 ABG O2 Saturation ABG Base Excess ABG Hemoglobin Oxyhemoglobin Sodium Potassium Chloride Carbon Dioxide BUN Creatinine Glucose POC Glucose Lactic Acid 3.30 H* Calcium Ionized Calcium Phosphorus Magnesium 1.40 L Total Bilirubin AST ALT Alkaline Phosphatase Ammonia 98.0 H Total Creatine Kinase CK-MB (CK-2) CK-MB (CK-2) Rel Index Total Protein Albumin Urine WBC (Auto) Vancomycin Trough Salicylates Acetaminophen Plasma/Serum Alcohol Crossmatch 11/24/19 11/25/19 11/25/19 05:22 04:34 05:05 WBC 17.3 H RBC 2.88 L Hgb 7.8 L Hct 24.6 L MCH 27 L RDW 18.5 H Plt Count Lymph % (Auto) 7.7 L [place] % (Auto) 9.7 H [place] # 1.7 H Baso # Seg Neutrophils % 82.2 H Seg Neuts % (Manual) Lymphocytes % (Manual) Monocytes % (Manual) Seg Neutrophils # 14.2 H Seg Neutrophils # Man Lymphocytes # (Manual) Monocytes # (Manual) Eosinophils # (Manual) Basophils # (Manual) PT INR APTT ABG pH 7.475 H ABG pO2 ABG HCO3 29.4 H 32.3 H ABG O2 Saturation ABG Base Excess 5.4 H 6.9 H ABG Hemoglobin 9.0 L 10.6 L Oxyhemoglobin 94.3 L Sodium Potassium Chloride Carbon Dioxide BUN Creatinine Glucose POC Glucose Lactic Acid Calcium Ionized Calcium Phosphorus Magnesium Total Bilirubin AST ALT Alkaline Phosphatase Ammonia Total Creatine Kinase CK-MB (CK-2) CK-MB (CK-2) Rel Index Total Protein Albumin Urine WBC (Auto) Vancomycin Trough Salicylates Acetaminophen Plasma/Serum Alcohol Crossmatch 11/25/19 11/25/19 11/26/19 05:05 22:46 03:31 WBC RBC Hgb Hct MCH RDW Plt Count Lymph % (Auto) [place] % (Auto) [place] # Baso # Seg Neutrophils % Seg Neuts % (Manual) Lymphocytes % (Manual) Monocytes % (Manual) Seg Neutrophils # Seg Neutrophils # Man Lymphocytes # (Manual) Monocytes # (Manual) Eosinophils # (Manual) Basophils # (Manual) PT INR APTT ABG pH 7.459 H ABG pO2 ABG HCO3 34.2 H ABG O2 Saturation ABG Base Excess 9.4 H ABG Hemoglobin 7.6 L Oxyhemoglobin 94.8 L Sodium 152 H D 147 H Potassium 2.3 L* D 2.8 L* D Chloride 107.8 H Carbon Dioxide 31 H D 33 H BUN Creatinine 0.6 L 0.6 L Glucose 148 H 177 H POC Glucose Lactic Acid Calcium Ionized Calcium Phosphorus Magnesium Total Bilirubin AST 105 H ALT 71 H Alkaline Phosphatase 155 H Ammonia Total Creatine Kinase CK-MB (CK-2) CK-MB (CK-2) Rel Index Total Protein 5.2 L D Albumin 2.9 L Urine WBC (Auto) Vancomycin Trough Salicylates Acetaminophen Plasma/Serum Alcohol Crossmatch 11/26/19 11/26/19 11/27/19 08:24 08:24 04:20 WBC 12.0 H RBC 3.00 L Hgb 8.0 L 9.3 L Hct 25.9 L 29.7 L MCH 27 L RDW 18.5 H Plt Count Lymph % (Auto) [place] % (Auto) [place] # Baso # Seg Neutrophils % Seg Neuts % (Manual) 89.0 H Lymphocytes % (Manual) 4.0 L Monocytes % (Manual) Seg Neutrophils # Seg Neutrophils # Man 10.7 H Lymphocytes # (Manual) 0.5 L Monocytes # (Manual) Eosinophils # (Manual) Basophils # (Manual) PT INR APTT ABG pH ABG pO2 ABG HCO3 ABG O2 Saturation ABG Base Excess ABG Hemoglobin Oxyhemoglobin Sodium 146 H Potassium 3.4 L D Chloride Carbon Dioxide BUN Creatinine 0.5 L Glucose 165 H POC Glucose Lactic Acid Calcium Ionized Calcium Phosphorus Magnesium Total Bilirubin AST 57 H ALT Alkaline Phosphatase 166 H Ammonia Total Creatine Kinase CK-MB (CK-2) CK-MB (CK-2) Rel Index Total Protein Albumin 2.9 L Urine WBC (Auto) Vancomycin Trough Salicylates Acetaminophen Plasma/Serum Alcohol Crossmatch 11/27/19 11/27/19 11/27/19 04:28 04:28 04:42 WBC RBC Hgb Hct MCH RDW Plt Count Lymph % (Auto) [place] % (Auto) [place] # Baso # Seg Neutrophils % Seg Neuts % (Manual) Lymphocytes % (Manual) Monocytes % (Manual) Seg Neutrophils # Seg Neutrophils # Man Lymphocytes # (Manual) Monocytes # (Manual) Eosinophils # (Manual) Basophils # (Manual) PT INR APTT ABG pH 7.470 H ABG pO2 74.0 L ABG HCO3 33.8 H ABG O2 Saturation ABG Base Excess 9.1 H ABG Hemoglobin 8.7 L Oxyhemoglobin 94.7 L Sodium 146 H Potassium 2.9 L* Chloride Carbon Dioxide BUN 25 H Creatinine Glucose 213 H POC Glucose Lactic Acid Calcium Ionized Calcium Phosphorus 1.00 L Magnesium Total Bilirubin AST ALT Alkaline Phosphatase Ammonia Total Creatine Kinase CK-MB (CK-2) CK-MB (CK-2) Rel Index Total Protein Albumin Urine WBC (Auto) Vancomycin Trough Salicylates Acetaminophen Plasma/Serum Alcohol Crossmatch 0311/27/19 11/27/19 05:37 12:20 15:46 WBC RBC Hgb Hct MCH RDW Plt Count Lymph % (Auto) [place] % (Auto) [place] # Baso # Seg Neutrophils % Seg Neuts % (Manual) Lymphocytes % (Manual) Monocytes % (Manual) Seg Neutrophils # Seg Neutrophils # Man Lymphocytes # (Manual) Monocytes # (Manual) Eosinophils # (Manual) Basophils # (Manual) PT INR APTT ABG pH ABG pO2 ABG HCO3 ABG O2 Saturation ABG Base Excess ABG Hemoglobin Oxyhemoglobin Sodium 146 H Potassium 3.5 L D Chloride Carbon Dioxide BUN 24 H Creatinine 0.6 L Glucose 187 H POC Glucose 117 H 220 H Lactic Acid Calcium Ionized Calcium Phosphorus Magnesium Total Bilirubin AST ALT Alkaline Phosphatase Ammonia Total Creatine Kinase CK-MB (CK-2) CK-MB (CK-2) Rel Index Total Protein Albumin Urine WBC (Auto) Vancomycin Trough Salicylates Acetaminophen Plasma/Serum Alcohol Crossmatch 11/27/19 11/28/19 11/28/19 17:28 05:00 05:02 WBC RBC Hgb Hct MCH RDW Plt Count Lymph % (Auto) [place] % (Auto) [place] # Baso # Seg Neutrophils % Seg Neuts % (Manual) Lymphocytes % (Manual) Monocytes % (Manual) Seg Neutrophils # Seg Neutrophils # Man Lymphocytes # (Manual) Monocytes # (Manual) Eosinophils # (Manual) Basophils # (Manual) PT INR APTT ABG pH ABG pO2 72.4 L ABG HCO3 33.6 H ABG O2 Saturation 94.1 L ABG Base Excess 7.3 H ABG Hemoglobin Oxyhemoglobin 91.8 L Sodium 146 H Potassium 3.3 L Chloride Carbon Dioxide BUN 25 H Creatinine 0.6 L Glucose 176 H POC Glucose 198 H Lactic Acid Calcium Ionized Calcium Phosphorus Magnesium Total Bilirubin AST ALT Alkaline Phosphatase Ammonia Total Creatine Kinase CK-MB (CK-2) CK-MB (CK-2) Rel Index Total Protein Albumin Urine WBC (Auto) Vancomycin Trough Salicylates Acetaminophen Plasma/Serum Alcohol Crossmatch 11/28/19 11/28/19 11/29/19 05:02 18:55 10:43 WBC 15.2 H 19.0 H RBC 3.06 L 3.01 L Hgb 8.3 L 8.3 L Hct 27.0 L 26.4 L MCH 27 L RDW 19.0 H 19.7 H Plt Count 479 H 611 H Lymph % (Auto) [place] % (Auto) [place] # Baso # Seg Neutrophils % Seg Neuts % (Manual) 92.0 H Lymphocytes % (Manual) 2.0 L Monocytes % (Manual) Seg Neutrophils # Seg Neutrophils # Man 14.0 H Lymphocytes # (Manual) 0.3 L Monocytes # (Manual) Eosinophils # (Manual) Basophils # (Manual) PT INR APTT ABG pH ABG pO2 ABG HCO3 ABG O2 Saturation ABG Base Excess ABG Hemoglobin Oxyhemoglobin Sodium Potassium Chloride Carbon Dioxide BUN Creatinine Glucose POC Glucose 138 H Lactic Acid Calcium Ionized Calcium Phosphorus Magnesium Total Bilirubin AST ALT Alkaline Phosphatase Ammonia Total Creatine Kinase CK-MB (CK-2) CK-MB (CK-2) Rel Index Total Protein Albumin Urine WBC (Auto) Vancomycin Trough Salicylates Acetaminophen Plasma/Serum Alcohol Crossmatch 11/29/19 11/29/19 11/29/19 10:43 12:27 19:25 WBC RBC Hgb Hct MCH RDW Plt Count Lymph % (Auto) [place] % (Auto) [place] # Baso # Seg Neutrophils % Seg Neuts % (Manual) Lymphocytes % (Manual) Monocytes % (Manual) Seg Neutrophils # Seg Neutrophils # Man Lymphocytes # (Manual) Monocytes # (Manual) Eosinophils # (Manual) Basophils # (Manual) PT INR APTT ABG pH ABG pO2 ABG HCO3 ABG O2 Saturation ABG Base Excess ABG Hemoglobin Oxyhemoglobin Sodium Potassium 2.8 L* Chloride Carbon Dioxide BUN 20 H Creatinine 0.5 L Glucose 121 H POC Glucose 128 H 120 H Lactic Acid Calcium Ionized Calcium Phosphorus Magnesium Total Bilirubin AST ALT Alkaline Phosphatase Ammonia Total Creatine Kinase CK-MB (CK-2) CK-MB (CK-2) Rel Index Total Protein Albumin Urine WBC (Auto) Vancomycin Trough Salicylates Acetaminophen Plasma/Serum Alcohol Crossmatch 11/29/19 11/30/19 11/30/19 23:46 04:10 05:02 WBC RBC Hgb Hct MCH RDW Plt Count Lymph % (Auto) [place] % (Auto) [place] # Baso # Seg Neutrophils % Seg Neuts % (Manual) Lymphocytes % (Manual) Monocytes % (Manual) Seg Neutrophils # Seg Neutrophils # Man Lymphocytes # (Manual) Monocytes # (Manual) Eosinophils # (Manual) Basophils # (Manual) PT INR APTT ABG pH ABG pO2 76.3 L ABG HCO3 32.5 H ABG O2 Saturation ABG Base Excess 6.9 H ABG Hemoglobin 8.0 L Oxyhemoglobin 92.6 L Sodium Potassium Chloride Carbon Dioxide BUN Creatinine Glucose POC Glucose 116 H 128 H Lactic Acid Calcium Ionized Calcium Phosphorus Magnesium Total Bilirubin AST ALT Alkaline Phosphatase Ammonia Total Creatine Kinase CK-MB (CK-2) CK-MB (CK-2) Rel Index Total Protein Albumin Urine WBC (Auto) Vancomycin Trough Salicylates Acetaminophen Plasma/Serum Alcohol Crossmatch 11/30/19 11/30/19 11/30/19 05:25 05:25 12:59 WBC 18.4 H RBC 3.10 L Hgb 8.5 L Hct 27.5 L MCH 27 L RDW 20.9 H Plt Count 691 H Lymph % (Auto) 7.1 L [place] % (Auto) 7.7 H [place] # 1.4 H Baso # Seg Neutrophils % 83.4 H Seg Neuts % (Manual) Lymphocytes % (Manual) Monocytes % (Manual) Seg Neutrophils # 15.4 H Seg Neutrophils # Man Lymphocytes # (Manual) Monocytes # (Manual) Eosinophils # (Manual) Basophils # (Manual) PT INR APTT ABG pH ABG pO2 ABG HCO3 ABG O2 Saturation ABG Base Excess ABG Hemoglobin Oxyhemoglobin Sodium 146 H Potassium Chloride 107.2 H Carbon Dioxide BUN Creatinine 0.5 L Glucose 132 H POC Glucose 124 H Lactic Acid Calcium Ionized Calcium Phosphorus Magnesium Total Bilirubin AST 246 H ALT 274 H Alkaline Phosphatase 203 H Ammonia Total Creatine Kinase CK-MB (CK-2) CK-MB (CK-2) Rel Index Total Protein 5.4 L Albumin 2.9 L Urine WBC (Auto) Vancomycin Trough Salicylates Acetaminophen Plasma/Serum Alcohol Crossmatch 11/30/19 12/01/19 12/01/19 17:53 00:05 05:10 WBC RBC Hgb Hct MCH RDW Plt Count Lymph % (Auto) [place] % (Auto) [place] # Baso # Seg Neutrophils % Seg Neuts % (Manual) Lymphocytes % (Manual) Monocytes % (Manual) Seg Neutrophils # Seg Neutrophils # Man Lymphocytes # (Manual) Monocytes # (Manual) Eosinophils # (Manual) Basophils # (Manual) PT INR APTT ABG pH ABG pO2 ABG HCO3 ABG O2 Saturation ABG Base Excess ABG Hemoglobin Oxyhemoglobin Sodium Potassium Chloride Carbon Dioxide BUN Creatinine Glucose POC Glucose 113 H 143 H 145 H Lactic Acid Calcium Ionized Calcium Phosphorus Magnesium Total Bilirubin AST ALT Alkaline Phosphatase Ammonia Total Creatine Kinase CK-MB (CK-2) CK-MB (CK-2) Rel Index Total Protein Albumin Urine WBC (Auto) Vancomycin Trough Salicylates Acetaminophen Plasma/Serum Alcohol Crossmatch 12/01/19 12/01/19 12/01/19 05:33 08:23 08:23 WBC 22.7 H RBC 2.88 L Hgb 7.9 L Hct 25.2 L MCH 27 L RDW 21.0 H Plt Count 732 H Lymph % (Auto) [place] % (Auto) [place] # Baso # Seg Neutrophils % Seg Neuts % (Manual) 91.0 H Lymphocytes % (Manual) 3.0 L Monocytes % (Manual) Seg Neutrophils # Seg Neutrophils # Man 20.7 H Lymphocytes # (Manual) 0.7 L Monocytes # (Manual) 1.1 H Eosinophils # (Manual) Basophils # (Manual) PT INR APTT ABG pH ABG pO2 68.6 L ABG HCO3 34.1 H ABG O2 Saturation ABG Base Excess 9.0 H ABG Hemoglobin 6.5 L Oxyhemoglobin 94.7 L Sodium Potassium Chloride Carbon Dioxide BUN Creatinine 0.5 L Glucose 125 H POC Glucose Lactic Acid Calcium Ionized Calcium Phosphorus Magnesium Total Bilirubin AST ALT Alkaline Phosphatase Ammonia Total Creatine Kinase CK-MB (CK-2) CK-MB (CK-2) Rel Index Total Protein Albumin Urine WBC (Auto) Vancomycin Trough Salicylates Acetaminophen Plasma/Serum Alcohol Crossmatch 12/01/19 12/01/19 12/01/19 13:21 17:54 20:59 WBC RBC Hgb Hct MCH RDW Plt Count Lymph % (Auto) [place] % (Auto) [place] # Baso # Seg Neutrophils % Seg Neuts % (Manual) Lymphocytes % (Manual) Monocytes % (Manual) Seg Neutrophils # Seg Neutrophils # Man Lymphocytes # (Manual) Monocytes # (Manual) Eosinophils # (Manual) Basophils # (Manual) PT INR APTT ABG pH ABG pO2 78.3 L ABG HCO3 33.8 H ABG O2 Saturation 94.9 L ABG Base Excess 7.9 H ABG Hemoglobin 11.5 L Oxyhemoglobin 92.3 L Sodium Potassium Chloride Carbon Dioxide BUN Creatinine Glucose POC Glucose 111 H 115 H Lactic Acid Calcium Ionized Calcium Phosphorus Magnesium Total Bilirubin AST ALT Alkaline Phosphatase Ammonia Total Creatine Kinase CK-MB (CK-2) CK-MB (CK-2) Rel Index Total Protein Albumin Urine WBC (Auto) Vancomycin Trough Salicylates Acetaminophen Plasma/Serum Alcohol Crossmatch 12/02/19 12/03/19 12/04/19 12:55 20:00 04:26 WBC 15.2 H RBC 2.69 L Hgb 7.4 L Hct 23.6 L MCH 27 L RDW 19.9 H Plt Count 838 H Lymph % (Auto) [place] % (Auto) [place] # Baso # Seg Neutrophils % Seg Neuts % (Manual) Lymphocytes % (Manual) Monocytes % (Manual) Seg Neutrophils # Seg Neutrophils # Man Lymphocytes # (Manual) Monocytes # (Manual) Eosinophils # (Manual) Basophils # (Manual) PT INR APTT ABG pH ABG pO2 68.3 L ABG HCO3 33.5 H ABG O2 Saturation 93.5 L ABG Base Excess 8.4 H ABG Hemoglobin 7.3 L Oxyhemoglobin 90.9 L Sodium Potassium Chloride Carbon Dioxide BUN Creatinine Glucose POC Glucose 107 H Lactic Acid Calcium Ionized Calcium Phosphorus Magnesium Total Bilirubin AST ALT Alkaline Phosphatase Ammonia Total Creatine Kinase CK-MB (CK-2) CK-MB (CK-2) Rel Index Total Protein Albumin Urine WBC (Auto) Vancomycin Trough Salicylates Acetaminophen Plasma/Serum Alcohol Crossmatch 12/04/19 12/04/19 12/04/19 04:26 07:45 12:02 WBC 15.9 H RBC 2.88 L Hgb 7.9 L Hct 25.1 L MCH RDW 20.4 H Plt Count 839 H Lymph % (Auto) 11.3 L [place] % (Auto) 15.2 H [place] # 2.4 H Baso # Seg Neutrophils % 72.4 H Seg Neuts % (Manual) Lymphocytes % (Manual) Monocytes % (Manual) Seg Neutrophils # 11.5 H Seg Neutrophils # Man Lymphocytes # (Manual) Monocytes # (Manual) Eosinophils # (Manual) Basophils # (Manual) PT INR APTT ABG pH ABG pO2 ABG HCO3 ABG O2 Saturation ABG Base Excess ABG Hemoglobin Oxyhemoglobin Sodium Potassium Chloride 96.5 L Carbon Dioxide BUN 21 H Creatinine 0.6 L Glucose 107 H POC Glucose 138 H Lactic Acid Calcium Ionized Calcium Phosphorus Magnesium Total Bilirubin AST ALT Alkaline Phosphatase Ammonia Total Creatine Kinase CK-MB (CK-2) CK-MB (CK-2) Rel Index Total Protein Albumin Urine WBC (Auto) Vancomycin Trough Salicylates Acetaminophen Plasma/Serum Alcohol Crossmatch 12/04/19 12/05/19 12/05/19 18:16 11:55 18:36 WBC RBC Hgb Hct MCH RDW Plt Count Lymph % (Auto) [place] % (Auto) [place] # Baso # Seg Neutrophils % Seg Neuts % (Manual) Lymphocytes % (Manual) Monocytes % (Manual) Seg Neutrophils # Seg Neutrophils # Man Lymphocytes # (Manual) Monocytes # (Manual) Eosinophils # (Manual) Basophils # (Manual) PT INR APTT ABG pH ABG pO2 ABG HCO3 ABG O2 Saturation ABG Base Excess ABG Hemoglobin Oxyhemoglobin Sodium Potassium Chloride Carbon Dioxide BUN Creatinine Glucose POC Glucose 135 H 125 H 135 H Lactic Acid Calcium Ionized Calcium Phosphorus Magnesium Total Bilirubin AST ALT Alkaline Phosphatase Ammonia Total Creatine Kinase CK-MB (CK-2) CK-MB (CK-2) Rel Index Total Protein Albumin Urine WBC (Auto) Vancomycin Trough Salicylates Acetaminophen Plasma/Serum Alcohol Crossmatch 12/05/19 12/06/19 12/06/19 23:30 04:14 05:43 WBC RBC Hgb Hct MCH RDW Plt Count Lymph % (Auto) [place] % (Auto) [place] # Baso # Seg Neutrophils % Seg Neuts % (Manual) Lymphocytes % (Manual) Monocytes % (Manual) Seg Neutrophils # Seg Neutrophils # Man Lymphocytes # (Manual) Monocytes # (Manual) Eosinophils # (Manual) Basophils # (Manual) PT INR APTT ABG pH ABG pO2 ABG HCO3 ABG O2 Saturation ABG Base Excess ABG Hemoglobin Oxyhemoglobin Sodium Potassium 5.6 H Chloride 95.0 L Carbon Dioxide BUN 48 H Creatinine 1.3 H D Glucose POC Glucose 126 H 121 H Lactic Acid Calcium Ionized Calcium Phosphorus Magnesium Total Bilirubin AST 89 H ALT 98 H Alkaline Phosphatase 476 H Ammonia Total Creatine Kinase CK-MB (CK-2) CK-MB (CK-2) Rel Index Total Protein Albumin 2.8 L Urine WBC (Auto) Vancomycin Trough Salicylates Acetaminophen Plasma/Serum Alcohol Crossmatch 12/06/19 12/06/19 12/07/19 10:39 14:34 00:19 WBC 17.3 H RBC 2.60 L Hgb 7.1 L Hct 22.7 L MCH 27 L RDW 20.1 H Plt Count 832 H Lymph % (Auto) [place] % (Auto) [place] # Baso # Seg Neutrophils % Seg Neuts % (Manual) Lymphocytes % (Manual) Monocytes % (Manual) Seg Neutrophils # Seg Neutrophils # Man Lymphocytes # (Manual) Monocytes # (Manual) Eosinophils # (Manual) Basophils # (Manual) PT INR APTT ABG pH ABG pO2 ABG HCO3 ABG O2 Saturation ABG Base Excess ABG Hemoglobin Oxyhemoglobin Sodium Potassium Chloride Carbon Dioxide BUN Creatinine Glucose POC Glucose 128 H 136 H Lactic Acid Calcium Ionized Calcium Phosphorus Magnesium Total Bilirubin AST ALT Alkaline Phosphatase Ammonia Total Creatine Kinase CK-MB (CK-2) CK-MB (CK-2) Rel Index Total Protein Albumin Urine WBC (Auto) Vancomycin Trough Salicylates Acetaminophen Plasma/Serum Alcohol Crossmatch 12/07/19 12/07/19 12/07/19 03:44 03:44 05:53 WBC 16.2 H RBC 2.56 L Hgb 7.1 L Hct 22.3 L MCH RDW 19.4 H Plt Count 782 H Lymph % (Auto) [place] % (Auto) [place] # Baso # Seg Neutrophils % Seg Neuts % (Manual) Lymphocytes % (Manual) Monocytes % (Manual) Seg Neutrophils # Seg Neutrophils # Man Lymphocytes # (Manual) Monocytes # (Manual) Eosinophils # (Manual) Basophils # (Manual) PT INR APTT ABG pH ABG pO2 ABG HCO3 ABG O2 Saturation ABG Base Excess ABG Hemoglobin Oxyhemoglobin Sodium Potassium Chloride 95.6 L Carbon Dioxide BUN 56 H Creatinine 1.4 H Glucose 120 H POC Glucose 128 H Lactic Acid Calcium 10.3 H Ionized Calcium Phosphorus Magnesium Total Bilirubin AST ALT Alkaline Phosphatase Ammonia Total Creatine Kinase CK-MB (CK-2) CK-MB (CK-2) Rel Index Total Protein Albumin Urine WBC (Auto) Vancomycin Trough Salicylates Acetaminophen Plasma/Serum Alcohol Crossmatch 12/07/19 12/07/19 12/08/19 12:54 23:47 00:20 WBC RBC Hgb Hct MCH RDW Plt Count Lymph % (Auto) [place] % (Auto) [place] # Baso # Seg Neutrophils % Seg Neuts % (Manual) Lymphocytes % (Manual) Monocytes % (Manual) Seg Neutrophils # Seg Neutrophils # Man Lymphocytes # (Manual) Monocytes # (Manual) Eosinophils # (Manual) Basophils # (Manual) PT INR APTT ABG pH ABG pO2 ABG HCO3 ABG O2 Saturation ABG Base Excess ABG Hemoglobin Oxyhemoglobin Sodium Potassium Chloride Carbon Dioxide BUN Creatinine Glucose POC Glucose 128 H 130 H 124 H Lactic Acid Calcium Ionized Calcium Phosphorus Magnesium Total Bilirubin AST ALT Alkaline Phosphatase Ammonia Total Creatine Kinase CK-MB (CK-2) CK-MB (CK-2) Rel Index Total Protein Albumin Urine WBC (Auto) Vancomycin Trough Salicylates Acetaminophen Plasma/Serum Alcohol Crossmatch 12/08/19 12/08/19 12/08/19 06:38 12:04 18:26 WBC RBC Hgb Hct MCH RDW Plt Count Lymph % (Auto) [place] % (Auto) [place] # Baso # Seg Neutrophils % Seg Neuts % (Manual) Lymphocytes % (Manual) Monocytes % (Manual) Seg Neutrophils # Seg Neutrophils # Man Lymphocytes # (Manual) Monocytes # (Manual) Eosinophils # (Manual) Basophils # (Manual) PT INR APTT ABG pH ABG pO2 ABG HCO3 ABG O2 Saturation ABG Base Excess ABG Hemoglobin Oxyhemoglobin Sodium Potassium Chloride Carbon Dioxide BUN Creatinine Glucose POC Glucose 137 H 129 H 150 H Lactic Acid Calcium Ionized Calcium Phosphorus Magnesium Total Bilirubin AST ALT Alkaline Phosphatase Ammonia Total Creatine Kinase CK-MB (CK-2) CK-MB (CK-2) Rel Index Total Protein Albumin Urine WBC (Auto) Vancomycin Trough Salicylates Acetaminophen Plasma/Serum Alcohol Crossmatch 12/09/19 12/09/19 12/09/19 00:56 05:34 06:13 WBC RBC Hgb Hct MCH RDW Plt Count Lymph % (Auto) [place] % (Auto) [place] # Baso # Seg Neutrophils % Seg Neuts % (Manual) Lymphocytes % (Manual) Monocytes % (Manual) Seg Neutrophils # Seg Neutrophils # Man Lymphocytes # (Manual) Monocytes # (Manual) Eosinophils # (Manual) Basophils # (Manual) PT INR APTT ABG pH ABG pO2 ABG HCO3 ABG O2 Saturation ABG Base Excess ABG Hemoglobin Oxyhemoglobin Sodium 146 H Potassium Chloride Carbon Dioxide BUN 66 H Creatinine 1.9 H Glucose 116 H POC Glucose 130 H 130 H Lactic Acid Calcium Ionized Calcium Phosphorus Magnesium Total Bilirubin AST ALT Alkaline Phosphatase Ammonia Total Creatine Kinase CK-MB (CK-2) CK-MB (CK-2) Rel Index Total Protein Albumin Urine WBC (Auto) Vancomycin Trough Salicylates Acetaminophen Plasma/Serum Alcohol Crossmatch 12/09/19 12/09/19 12/10/19 11:52 17:50 00:14 WBC RBC Hgb Hct MCH RDW Plt Count Lymph % (Auto) [place] % (Auto) [place] # Baso # Seg Neutrophils % Seg Neuts % (Manual) Lymphocytes % (Manual) Monocytes % (Manual) Seg Neutrophils # Seg Neutrophils # Man Lymphocytes # (Manual) Monocytes # (Manual) Eosinophils # (Manual) Basophils # (Manual) PT INR APTT ABG pH ABG pO2 ABG HCO3 ABG O2 Saturation ABG Base Excess ABG Hemoglobin Oxyhemoglobin Sodium Potassium Chloride Carbon Dioxide BUN Creatinine Glucose POC Glucose 135 H 120 H 116 H Lactic Acid Calcium Ionized Calcium Phosphorus Magnesium Total Bilirubin AST ALT Alkaline Phosphatase Ammonia Total Creatine Kinase CK-MB (CK-2) CK-MB (CK-2) Rel Index Total Protein Albumin Urine WBC (Auto) Vancomycin Trough Salicylates Acetaminophen Plasma/Serum Alcohol Crossmatch 12/10/19 12/10/19 12/10/19 05:38 11:38 17:34 WBC RBC Hgb Hct MCH RDW Plt Count Lymph % (Auto) [place] % (Auto) [place] # Baso # Seg Neutrophils % Seg Neuts % (Manual) Lymphocytes % (Manual) Monocytes % (Manual) Seg Neutrophils # Seg Neutrophils # Man Lymphocytes # (Manual) Monocytes # (Manual) Eosinophils # (Manual) Basophils # (Manual) PT INR APTT ABG pH ABG pO2 ABG HCO3 ABG O2 Saturation ABG Base Excess ABG Hemoglobin Oxyhemoglobin Sodium Potassium Chloride Carbon Dioxide BUN Creatinine Glucose POC Glucose 115 H 112 H 130 H Lactic Acid Calcium Ionized Calcium Phosphorus Magnesium Total Bilirubin AST ALT Alkaline Phosphatase Ammonia Total Creatine Kinase CK-MB (CK-2) CK-MB (CK-2) Rel Index Total Protein Albumin Urine WBC (Auto) Vancomycin Trough Salicylates Acetaminophen Plasma/Serum Alcohol Crossmatch 12/11/19 12/11/19 12/11/19 00:20 05:31 12:22 WBC RBC Hgb Hct MCH RDW Plt Count Lymph % (Auto) [place] % (Auto) [place] # Baso # Seg Neutrophils % Seg Neuts % (Manual) Lymphocytes % (Manual) Monocytes % (Manual) Seg Neutrophils # Seg Neutrophils # Man Lymphocytes # (Manual) Monocytes # (Manual) Eosinophils # (Manual) Basophils # (Manual) PT INR APTT ABG pH ABG pO2 ABG HCO3 ABG O2 Saturation ABG Base Excess ABG Hemoglobin Oxyhemoglobin Sodium Potassium Chloride Carbon Dioxide BUN Creatinine Glucose POC Glucose 124 H 132 H 128 H Lactic Acid Calcium Ionized Calcium Phosphorus Magnesium Total Bilirubin AST ALT Alkaline Phosphatase Ammonia Total Creatine Kinase CK-MB (CK-2) CK-MB (CK-2) Rel Index Total Protein Albumin Urine WBC (Auto) Vancomycin Trough Salicylates Acetaminophen Plasma/Serum Alcohol Crossmatch 12/11/19 12/11/19 12/12/19 18:04 23:42 03:51 WBC RBC Hgb Hct MCH RDW Plt Count Lymph % (Auto) [place] % (Auto) [place] # Baso # Seg Neutrophils % Seg Neuts % (Manual) Lymphocytes % (Manual) Monocytes % (Manual) Seg Neutrophils # Seg Neutrophils # Man Lymphocytes # (Manual) Monocytes # (Manual) Eosinophils # (Manual) Basophils # (Manual) PT INR APTT ABG pH ABG pO2 ABG HCO3 ABG O2 Saturation ABG Base Excess ABG Hemoglobin Oxyhemoglobin Sodium 149 H Potassium Chloride Carbon Dioxide 20 L D BUN 77 H Creatinine 2.8 H Glucose POC Glucose 133 H 154 H Lactic Acid Calcium Ionized Calcium Phosphorus Magnesium Total Bilirubin AST ALT Alkaline Phosphatase Ammonia Total Creatine Kinase CK-MB (CK-2) CK-MB (CK-2) Rel Index Total Protein Albumin Urine WBC (Auto) Vancomycin Trough Salicylates Acetaminophen Plasma/Serum Alcohol Crossmatch 12/12/19 12/12/19 12/12/19 05:18 05:26 10:30 WBC 18.0 H RBC 2.51 L Hgb 6.8 L Hct 22.0 L MCH 27 L RDW 19.9 H Plt Count 582 H Lymph % (Auto) [place] % (Auto) [place] # Baso # Seg Neutrophils % Seg Neuts % (Manual) Lymphocytes % (Manual) Monocytes % (Manual) Seg Neutrophils # Seg Neutrophils # Man Lymphocytes # (Manual) Monocytes # (Manual) Eosinophils # (Manual) Basophils # (Manual) PT INR APTT ABG pH ABG pO2 ABG HCO3 ABG O2 Saturation ABG Base Excess ABG Hemoglobin Oxyhemoglobin Sodium Potassium Chloride Carbon Dioxide BUN Creatinine Glucose POC Glucose 135 H Lactic Acid Calcium Ionized Calcium Phosphorus Magnesium Total Bilirubin AST ALT Alkaline Phosphatase Ammonia Total Creatine Kinase CK-MB (CK-2) CK-MB (CK-2) Rel Index Total Protein Albumin Urine WBC (Auto) Vancomycin Trough Salicylates Acetaminophen Plasma/Serum Alcohol Crossmatch See Detail 12/12/19 12/12/19 12/12/19 11:44 18:10 23:21 WBC RBC Hgb Hct MCH RDW Plt Count Lymph % (Auto) [place] % (Auto) [place] # Baso # Seg Neutrophils % Seg Neuts % (Manual) Lymphocytes % (Manual) Monocytes % (Manual) Seg Neutrophils # Seg Neutrophils # Man Lymphocytes # (Manual) Monocytes # (Manual) Eosinophils # (Manual) Basophils # (Manual) PT INR APTT ABG pH ABG pO2 ABG HCO3 ABG O2 Saturation ABG Base Excess ABG Hemoglobin Oxyhemoglobin Sodium Potassium Chloride Carbon Dioxide BUN Creatinine Glucose POC Glucose 108 H 107 H 126 H Lactic Acid Calcium Ionized Calcium Phosphorus Magnesium Total Bilirubin AST ALT Alkaline Phosphatase Ammonia Total Creatine Kinase CK-MB (CK-2) CK-MB (CK-2) Rel Index Total Protein Albumin Urine WBC (Auto) Vancomycin Trough Salicylates Acetaminophen Plasma/Serum Alcohol Crossmatch 12/13/19 12/13/19 12/13/19 05:41 07:48 07:48 WBC 38.3 H RBC 2.37 L Hgb 6.3 L Hct 20.9 L MCH 27 L RDW 20.2 H Plt Count 546 H Lymph % (Auto) [place] % (Auto) [place] # Baso # Seg Neutrophils % Seg Neuts % (Manual) 93.0 H Lymphocytes % (Manual) 1.0 L Monocytes % (Manual) Seg Neutrophils # Seg Neutrophils # Man 35.6 H Lymphocytes # (Manual) 0.4 L Monocytes # (Manual) Eosinophils # (Manual) Basophils # (Manual) 0.4 H PT INR APTT ABG pH ABG pO2 ABG HCO3 ABG O2 Saturation ABG Base Excess ABG Hemoglobin Oxyhemoglobin Sodium 152 H Potassium 3.1 L D Chloride 111.9 H Carbon Dioxide 21 L BUN 53 H Creatinine 1.9 H Glucose 141 H POC Glucose 128 H Lactic Acid Calcium Ionized Calcium Phosphorus Magnesium Total Bilirubin AST ALT Alkaline Phosphatase 316 H Ammonia Total Creatine Kinase CK-MB (CK-2) CK-MB (CK-2) Rel Index Total Protein Albumin 2.4 L Urine WBC (Auto) Vancomycin Trough Salicylates Acetaminophen Plasma/Serum Alcohol Crossmatch 12/13/19 12/13/19 12/14/19 18:17 23:19 05:36 WBC RBC Hgb Hct MCH RDW Plt Count Lymph % (Auto) [place] % (Auto) [place] # Baso # Seg Neutrophils % Seg Neuts % (Manual) Lymphocytes % (Manual) Monocytes % (Manual) Seg Neutrophils # Seg Neutrophils # Man Lymphocytes # (Manual) Monocytes # (Manual) Eosinophils # (Manual) Basophils # (Manual) PT INR APTT ABG pH ABG pO2 ABG HCO3 ABG O2 Saturation ABG Base Excess ABG Hemoglobin Oxyhemoglobin Sodium Potassium Chloride Carbon Dioxide BUN Creatinine Glucose POC Glucose 141 H 158 H 182 H Lactic Acid Calcium Ionized Calcium Phosphorus Magnesium Total Bilirubin AST ALT Alkaline Phosphatase Ammonia Total Creatine Kinase CK-MB (CK-2) CK-MB (CK-2) Rel Index Total Protein Albumin Urine WBC (Auto) Vancomycin Trough Salicylates Acetaminophen Plasma/Serum Alcohol Crossmatch 12/14/19 12/14/19 12/14/19 08:48 08:48 10:31 WBC 33.3 H RBC 2.70 L Hgb 7.9 L 8.0 L Hct 25.3 L 24.0 L MCH RDW 19.2 H Plt Count 476 H Lymph % (Auto) [place] % (Auto) [place] # Baso # Seg Neutrophils % Seg Neuts % (Manual) Lymphocytes % (Manual) Monocytes % (Manual) Seg Neutrophils # Seg Neutrophils # Man Lymphocytes # (Manual) Monocytes # (Manual) Eosinophils # (Manual) Basophils # (Manual) PT INR APTT ABG pH ABG pO2 ABG HCO3 ABG O2 Saturation ABG Base Excess ABG Hemoglobin Oxyhemoglobin Sodium 153 H Potassium 2.5 L* Chloride 114.9 H Carbon Dioxide 20 L BUN 38 H Creatinine 1.4 H Glucose 177 H POC Glucose Lactic Acid Calcium Ionized Calcium Phosphorus Magnesium Total Bilirubin AST ALT Alkaline Phosphatase Ammonia Total Creatine Kinase CK-MB (CK-2) CK-MB (CK-2) Rel Index Total Protein Albumin Urine WBC (Auto) Vancomycin Trough Salicylates Acetaminophen Plasma/Serum Alcohol Crossmatch 12/14/19 12/14/19 12/14/19 12:57 16:15 17:50 WBC RBC Hgb Hct MCH RDW Plt Count Lymph % (Auto) [place] % (Auto) [place] # Baso # Seg Neutrophils % Seg Neuts % (Manual) Lymphocytes % (Manual) Monocytes % (Manual) Seg Neutrophils # Seg Neutrophils # Man Lymphocytes # (Manual) Monocytes # (Manual) Eosinophils # (Manual) Basophils # (Manual) PT INR APTT ABG pH ABG pO2 73.6 L ABG HCO3 ABG O2 Saturation ABG Base Excess ABG Hemoglobin 7.6 L Oxyhemoglobin 94.0 L Sodium Potassium Chloride Carbon Dioxide BUN Creatinine Glucose POC Glucose 174 H 150 H Lactic Acid Calcium Ionized Calcium Phosphorus Magnesium Total Bilirubin AST ALT Alkaline Phosphatase Ammonia Total Creatine Kinase CK-MB (CK-2) CK-MB (CK-2) Rel Index Total Protein Albumin Urine WBC (Auto) Vancomycin Trough Salicylates Acetaminophen Plasma/Serum Alcohol Crossmatch 12/15/19 12/15/19 12/15/19 00:28 05:27 07:23 WBC 30.0 H RBC 3.11 L Hgb 8.6 L Hct 27.7 L MCH RDW 20.0 H Plt Count 473 H Lymph % (Auto) [place] % (Auto) [place] # Baso # Seg Neutrophils % Seg Neuts % (Manual) Lymphocytes % (Manual) Monocytes % (Manual) Seg Neutrophils # Seg Neutrophils # Man Lymphocytes # (Manual) Monocytes # (Manual) Eosinophils # (Manual) Basophils # (Manual) PT INR APTT ABG pH ABG pO2 ABG HCO3 ABG O2 Saturation ABG Base Excess ABG Hemoglobin Oxyhemoglobin Sodium Potassium Chloride Carbon Dioxide BUN Creatinine Glucose POC Glucose 167 H 148 H Lactic Acid Calcium Ionized Calcium Phosphorus Magnesium Total Bilirubin AST ALT Alkaline Phosphatase Ammonia Total Creatine Kinase CK-MB (CK-2) CK-MB (CK-2) Rel Index Total Protein Albumin Urine WBC (Auto) Vancomycin Trough Salicylates Acetaminophen Plasma/Serum Alcohol Crossmatch 12/15/19 12/15/19 12/15/19 07:23 12:21 17:41 WBC RBC Hgb Hct MCH RDW Plt Count Lymph % (Auto) [place] % (Auto) [place] # Baso # Seg Neutrophils % Seg Neuts % (Manual) Lymphocytes % (Manual) Monocytes % (Manual) Seg Neutrophils # Seg Neutrophils # Man Lymphocytes # (Manual) Monocytes # (Manual) Eosinophils # (Manual) Basophils # (Manual) PT INR APTT ABG pH ABG pO2 ABG HCO3 ABG O2 Saturation ABG Base Excess ABG Hemoglobin Oxyhemoglobin Sodium 147 H Potassium 3.5 L D Chloride 111.2 H Carbon Dioxide 19 L BUN 29 H Creatinine Glucose 126 H POC Glucose 154 H 144 H Lactic Acid Calcium Ionized Calcium Phosphorus Magnesium Total Bilirubin AST ALT Alkaline Phosphatase Ammonia Total Creatine Kinase CK-MB (CK-2) CK-MB (CK-2) Rel Index Total Protein Albumin Urine WBC (Auto) Vancomycin Trough Salicylates Acetaminophen Plasma/Serum Alcohol Crossmatch 12/16/19 12/16/19 12/16/19 00:22 05:30 05:44 WBC 30.8 H RBC 2.58 L Hgb 7.1 L Hct 22.7 L MCH RDW 19.6 H Plt Count 451 H Lymph % (Auto) [place] % (Auto) [place] # Baso # Seg Neutrophils % Seg Neuts % (Manual) Lymphocytes % (Manual) Monocytes % (Manual) Seg Neutrophils # Seg Neutrophils # Man Lymphocytes # (Manual) Monocytes # (Manual) Eosinophils # (Manual) Basophils # (Manual) PT INR APTT ABG pH ABG pO2 ABG HCO3 ABG O2 Saturation ABG Base Excess ABG Hemoglobin Oxyhemoglobin Sodium Potassium Chloride Carbon Dioxide BUN Creatinine Glucose POC Glucose 139 H 126 H Lactic Acid Calcium Ionized Calcium Phosphorus Magnesium Total Bilirubin AST ALT Alkaline Phosphatase Ammonia Total Creatine Kinase CK-MB (CK-2) CK-MB (CK-2) Rel Index Total Protein Albumin Urine WBC (Auto) Vancomycin Trough Salicylates Acetaminophen Plasma/Serum Alcohol Crossmatch 12/16/19 12/16/19 12/16/19 05:44 11:48 17:37 WBC RBC Hgb Hct MCH RDW Plt Count Lymph % (Auto) [place] % (Auto) [place] # Baso # Seg Neutrophils % Seg Neuts % (Manual) Lymphocytes % (Manual) Monocytes % (Manual) Seg Neutrophils # Seg Neutrophils # Man Lymphocytes # (Manual) Monocytes # (Manual) Eosinophils # (Manual) Basophils # (Manual) PT INR APTT ABG pH ABG pO2 ABG HCO3 ABG O2 Saturation ABG Base Excess ABG Hemoglobin Oxyhemoglobin Sodium Potassium 3.4 L Chloride 109.2 H Carbon Dioxide 19 L BUN 27 H Creatinine Glucose 124 H POC Glucose 125 H 148 H Lactic Acid Calcium Ionized Calcium Phosphorus Magnesium Total Bilirubin AST ALT Alkaline Phosphatase Ammonia Total Creatine Kinase CK-MB (CK-2) CK-MB (CK-2) Rel Index Total Protein Albumin Urine WBC (Auto) Vancomycin Trough Salicylates Acetaminophen Plasma/Serum Alcohol Crossmatch 12/16/19 12/17/19 12/17/19 23:43 05:28 12:47 WBC RBC Hgb Hct MCH RDW Plt Count Lymph % (Auto) [place] % (Auto) [place] # Baso # Seg Neutrophils % Seg Neuts % (Manual) Lymphocytes % (Manual) Monocytes % (Manual) Seg Neutrophils # Seg Neutrophils # Man Lymphocytes # (Manual) Monocytes # (Manual) Eosinophils # (Manual) Basophils # (Manual) PT INR APTT ABG pH ABG pO2 ABG HCO3 ABG O2 Saturation ABG Base Excess ABG Hemoglobin Oxyhemoglobin Sodium Potassium Chloride Carbon Dioxide BUN Creatinine Glucose POC Glucose 142 H 140 H 125 H Lactic Acid Calcium Ionized Calcium Phosphorus Magnesium Total Bilirubin AST ALT Alkaline Phosphatase Ammonia Total Creatine Kinase CK-MB (CK-2) CK-MB (CK-2) Rel Index Total Protein Albumin Urine WBC (Auto) Vancomycin Trough Salicylates Acetaminophen Plasma/Serum Alcohol Crossmatch 12/17/19 12/17/19 12/17/19 17:05 18:00 Unknown WBC RBC Hgb Hct MCH RDW Plt Count Lymph % (Auto) [place] % (Auto) [place] # Baso # Seg Neutrophils % Seg Neuts % (Manual) Lymphocytes % (Manual) Monocytes % (Manual) Seg Neutrophils # Seg Neutrophils # Man Lymphocytes # (Manual) Monocytes # (Manual) Eosinophils # (Manual) Basophils # (Manual) PT INR APTT ABG pH ABG pO2 68.1 L ABG HCO3 ABG O2 Saturation 93.7 L ABG Base Excess ABG Hemoglobin 5.0 L Oxyhemoglobin 91.7 L Sodium Potassium Chloride Carbon Dioxide BUN Creatinine Glucose POC Glucose 140 H Lactic Acid Calcium Ionized Calcium Phosphorus Magnesium Total Bilirubin AST ALT Alkaline Phosphatase Ammonia Total Creatine Kinase CK-MB (CK-2) CK-MB (CK-2) Rel Index Total Protein Albumin Urine WBC (Auto) Vancomycin Trough Salicylates Acetaminophen Plasma/Serum Alcohol Crossmatch 12/18/19 12/18/19 12/18/19 00:16 04:53 04:53 WBC 28.6 H RBC 2.27 L Hgb 6.3 L Hct 19.5 L* MCH RDW 20.0 H Plt Count 497 H Lymph % (Auto) [place] % (Auto) [place] # Baso # Seg Neutrophils % Seg Neuts % (Manual) Lymphocytes % (Manual) Monocytes % (Manual) Seg Neutrophils # Seg Neutrophils # Man Lymphocytes # (Manual) Monocytes # (Manual) Eosinophils # (Manual) Basophils # (Manual) PT INR APTT ABG pH ABG pO2 ABG HCO3 ABG O2 Saturation ABG Base Excess ABG Hemoglobin Oxyhemoglobin Sodium Potassium Chloride 107.9 H Carbon Dioxide 20 L BUN 27 H Creatinine 0.6 L Glucose 116 H POC Glucose 123 H Lactic Acid Calcium Ionized Calcium Phosphorus Magnesium Total Bilirubin AST ALT Alkaline Phosphatase Ammonia Total Creatine Kinase CK-MB (CK-2) CK-MB (CK-2) Rel Index Total Protein Albumin Urine WBC (Auto) Vancomycin Trough Salicylates Acetaminophen Plasma/Serum Alcohol Crossmatch 12/18/19 12/18/19 12/18/19 06:38 11:22 12:08 WBC RBC Hgb Hct MCH RDW Plt Count Lymph % (Auto) [place] % (Auto) [place] # Baso # Seg Neutrophils % Seg Neuts % (Manual) Lymphocytes % (Manual) Monocytes % (Manual) Seg Neutrophils # Seg Neutrophils # Man Lymphocytes # (Manual) Monocytes # (Manual) Eosinophils # (Manual) Basophils # (Manual) PT INR APTT ABG pH ABG pO2 ABG HCO3 ABG O2 Saturation ABG Base Excess ABG Hemoglobin Oxyhemoglobin Sodium Potassium Chloride Carbon Dioxide BUN Creatinine Glucose POC Glucose 120 H 127 H Lactic Acid Calcium Ionized Calcium Phosphorus Magnesium Total Bilirubin AST ALT Alkaline Phosphatase Ammonia Total Creatine Kinase CK-MB (CK-2) CK-MB (CK-2) Rel Index Total Protein Albumin Urine WBC (Auto) Vancomycin Trough Salicylates Acetaminophen Plasma/Serum Alcohol Crossmatch See Detail 12/18/19 12/18/19 12/18/19 14:05 17:49 23:53 WBC RBC Hgb Hct MCH RDW Plt Count Lymph % (Auto) [place] % (Auto) [place] # Baso # Seg Neutrophils % Seg Neuts % (Manual) Lymphocytes % (Manual) Monocytes % (Manual) Seg Neutrophils # Seg Neutrophils # Man Lymphocytes # (Manual) Monocytes # (Manual) Eosinophils # (Manual) Basophils # (Manual) PT INR APTT ABG pH 7.267 L ABG pO2 69.8 L ABG HCO3 ABG O2 Saturation 88.4 L ABG Base Excess ABG Hemoglobin 7.1 L Oxyhemoglobin 86.4 L Sodium Potassium Chloride Carbon Dioxide BUN Creatinine Glucose POC Glucose 157 H 128 H Lactic Acid Calcium Ionized Calcium Phosphorus Magnesium Total Bilirubin AST ALT Alkaline Phosphatase Ammonia Total Creatine Kinase CK-MB (CK-2) CK-MB (CK-2) Rel Index Total Protein Albumin Urine WBC (Auto) Vancomycin Trough Salicylates Acetaminophen Plasma/Serum Alcohol Crossmatch 12/19/19 12/19/19 12/19/19 03:37 03:37 05:25 WBC 31.3 H RBC 2.60 L Hgb 7.6 L Hct 23.0 L MCH RDW 19.4 H Plt Count 530 H Lymph % (Auto) [place] % (Auto) [place] # Baso # Seg Neutrophils % Seg Neuts % (Manual) Lymphocytes % (Manual) Monocytes % (Manual) Seg Neutrophils # Seg Neutrophils # Man Lymphocytes # (Manual) Monocytes # (Manual) Eosinophils # (Manual) Basophils # (Manual) PT INR APTT ABG pH ABG pO2 ABG HCO3 ABG O2 Saturation ABG Base Excess ABG Hemoglobin Oxyhemoglobin Sodium Potassium Chloride Carbon Dioxide 18 L BUN 36 H Creatinine Glucose 111 H POC Glucose 123 H Lactic Acid Calcium Ionized Calcium Phosphorus Magnesium Total Bilirubin AST ALT Alkaline Phosphatase Ammonia Total Creatine Kinase CK-MB (CK-2) CK-MB (CK-2) Rel Index Total Protein Albumin Urine WBC (Auto) Vancomycin Trough Salicylates Acetaminophen Plasma/Serum Alcohol Crossmatch 12/19/19 12/19/19 12/20/19 12:59 18:33 00:00 WBC RBC Hgb Hct MCH RDW Plt Count Lymph % (Auto) [place] % (Auto) [place] # Baso # Seg Neutrophils % Seg Neuts % (Manual) Lymphocytes % (Manual) Monocytes % (Manual) Seg Neutrophils # Seg Neutrophils # Man Lymphocytes # (Manual) Monocytes # (Manual) Eosinophils # (Manual) Basophils # (Manual) PT INR APTT ABG pH ABG pO2 ABG HCO3 ABG O2 Saturation ABG Base Excess ABG Hemoglobin Oxyhemoglobin Sodium Potassium Chloride Carbon Dioxide BUN Creatinine Glucose POC Glucose 130 H 118 H 135 H Lactic Acid Calcium Ionized Calcium Phosphorus Magnesium Total Bilirubin AST ALT Alkaline Phosphatase Ammonia Total Creatine Kinase CK-MB (CK-2) CK-MB (CK-2) Rel Index Total Protein Albumin Urine WBC (Auto) Vancomycin Trough Salicylates Acetaminophen Plasma/Serum Alcohol Crossmatch 12/20/19 12/20/19 12/20/19 05:46 12:31 18:07 WBC RBC Hgb Hct MCH RDW Plt Count Lymph % (Auto) [place] % (Auto) [place] # Baso # Seg Neutrophils % Seg Neuts % (Manual) Lymphocytes % (Manual) Monocytes % (Manual) Seg Neutrophils # Seg Neutrophils # Man Lymphocytes # (Manual) Monocytes # (Manual) Eosinophils # (Manual) Basophils # (Manual) PT INR APTT ABG pH ABG pO2 ABG HCO3 ABG O2 Saturation ABG Base Excess ABG Hemoglobin Oxyhemoglobin Sodium Potassium Chloride Carbon Dioxide BUN Creatinine Glucose POC Glucose 131 H 128 H 134 H Lactic Acid Calcium Ionized Calcium Phosphorus Magnesium Total Bilirubin AST ALT Alkaline Phosphatase Ammonia Total Creatine Kinase CK-MB (CK-2) CK-MB (CK-2) Rel Index Total Protein Albumin Urine WBC (Auto) Vancomycin Trough Salicylates Acetaminophen Plasma/Serum Alcohol Crossmatch 12/21/19 12/21/19 12/21/19 03:28 03:28 07:21 WBC 29.4 H RBC 2.30 L Hgb 6.8 L Hct 20.2 L MCH RDW 20.2 H Plt Count 746 H Lymph % (Auto) [place] % (Auto) [place] # Baso # Seg Neutrophils % Seg Neuts % (Manual) 85.0 H Lymphocytes % (Manual) 8.0 L Monocytes % (Manual) Seg Neutrophils # Seg Neutrophils # Man 25.0 H Lymphocytes # (Manual) Monocytes # (Manual) 1.5 H Eosinophils # (Manual) 0.6 H Basophils # (Manual) PT INR APTT ABG pH ABG pO2 ABG HCO3 ABG O2 Saturation ABG Base Excess ABG Hemoglobin Oxyhemoglobin Sodium Potassium Chloride Carbon Dioxide 17 L BUN 57 H Creatinine 1.4 H D Glucose POC Glucose 124 H Lactic Acid Calcium Ionized Calcium Phosphorus Magnesium Total Bilirubin AST ALT Alkaline Phosphatase Ammonia Total Creatine Kinase CK-MB (CK-2) CK-MB (CK-2) Rel Index Total Protein Albumin Urine WBC (Auto) Vancomycin Trough Salicylates Acetaminophen Plasma/Serum Alcohol Crossmatch 12/21/19 12/21/19 12/21/19 08:56 12:06 14:53 WBC RBC Hgb 7.2 L Hct 22.9 L MCH RDW Plt Count Lymph % (Auto) [place] % (Auto) [place] # Baso # Seg Neutrophils % Seg Neuts % (Manual) Lymphocytes % (Manual) Monocytes % (Manual) Seg Neutrophils # Seg Neutrophils # Man Lymphocytes # (Manual) Monocytes # (Manual) Eosinophils # (Manual) Basophils # (Manual) PT INR APTT ABG pH ABG pO2 ABG HCO3 ABG O2 Saturation ABG Base Excess ABG Hemoglobin Oxyhemoglobin Sodium Potassium Chloride Carbon Dioxide BUN Creatinine Glucose POC Glucose 116 H Lactic Acid Calcium Ionized Calcium Phosphorus Magnesium Total Bilirubin AST ALT Alkaline Phosphatase Ammonia Total Creatine Kinase CK-MB (CK-2) CK-MB (CK-2) Rel Index Total Protein Albumin Urine WBC (Auto) Vancomycin Trough 33.8 H Salicylates Acetaminophen Plasma/Serum Alcohol Crossmatch 12/21/19 12/21/19 12/21/19 14:54 17:27 23:49 WBC RBC Hgb Hct MCH RDW Plt Count Lymph % (Auto) [place] % (Auto) [place] # Baso # Seg Neutrophils % Seg Neuts % (Manual) Lymphocytes % (Manual) Monocytes % (Manual) Seg Neutrophils # Seg Neutrophils # Man Lymphocytes # (Manual) Monocytes # (Manual) Eosinophils # (Manual) Basophils # (Manual) PT INR APTT ABG pH ABG pO2 ABG HCO3 ABG O2 Saturation ABG Base Excess ABG Hemoglobin Oxyhemoglobin Sodium Potassium Chloride Carbon Dioxide BUN Creatinine Glucose POC Glucose 145 H 127 H Lactic Acid Calcium Ionized Calcium Phosphorus Magnesium Total Bilirubin AST ALT Alkaline Phosphatase Ammonia Total Creatine Kinase CK-MB (CK-2) CK-MB (CK-2) Rel Index Total Protein Albumin Urine WBC (Auto) Vancomycin Trough Salicylates Acetaminophen Plasma/Serum Alcohol Crossmatch See Detail 12/22/19 12/22/19 12/22/19 04:43 05:56 08:40 WBC RBC Hgb Hct MCH RDW Plt Count Lymph % (Auto) [place] % (Auto) [place] # Baso # Seg Neutrophils % Seg Neuts % (Manual) Lymphocytes % (Manual) Monocytes % (Manual) Seg Neutrophils # Seg Neutrophils # Man Lymphocytes # (Manual) Monocytes # (Manual) Eosinophils # (Manual) Basophils # (Manual) PT INR APTT ABG pH ABG pO2 75.6 L ABG HCO3 ABG O2 Saturation ABG Base Excess -2.6 L ABG Hemoglobin 6.8 L Oxyhemoglobin 94.6 L Sodium Potassium Chloride Carbon Dioxide 17 L BUN 60 H Creatinine 1.4 H Glucose 126 H POC Glucose 153 H Lactic Acid Calcium Ionized Calcium Phosphorus Magnesium Total Bilirubin AST ALT Alkaline Phosphatase Ammonia Total Creatine Kinase CK-MB (CK-2) CK-MB (CK-2) Rel Index Total Protein Albumin Urine WBC (Auto) Vancomycin Trough Salicylates Acetaminophen Plasma/Serum Alcohol Crossmatch 12/22/19 12/22/19 12/23/19 12:07 17:49 04:30 WBC 22.4 H RBC 2.68 L Hgb 7.6 L Hct 22.9 L MCH RDW 19.9 H Plt Count 998 H Lymph % (Auto) [place] % (Auto) [place] # Baso # Seg Neutrophils % Seg Neuts % (Manual) 88.0 H Lymphocytes % (Manual) 2.0 L Monocytes % (Manual) 9.0 H Seg Neutrophils # Seg Neutrophils # Man 19.7 H Lymphocytes # (Manual) 0.4 L Monocytes # (Manual) 2.0 H Eosinophils # (Manual) Basophils # (Manual) PT INR APTT ABG pH ABG pO2 ABG HCO3 ABG O2 Saturation ABG Base Excess ABG Hemoglobin Oxyhemoglobin Sodium Potassium Chloride Carbon Dioxide BUN Creatinine Glucose POC Glucose 140 H 116 H Lactic Acid Calcium Ionized Calcium Phosphorus Magnesium Total Bilirubin AST ALT Alkaline Phosphatase Ammonia Total Creatine Kinase CK-MB (CK-2) CK-MB (CK-2) Rel Index Total Protein Albumin Urine WBC (Auto) Vancomycin Trough Salicylates Acetaminophen Plasma/Serum Alcohol Crossmatch 12/23/19 12/23/19 12/23/19 04:30 12:00 18:06 WBC RBC Hgb Hct MCH RDW Plt Count Lymph % (Auto) [place] % (Auto) [place] # Baso # Seg Neutrophils % Seg Neuts % (Manual) Lymphocytes % (Manual) Monocytes % (Manual) Seg Neutrophils # Seg Neutrophils # Man Lymphocytes # (Manual) Monocytes # (Manual) Eosinophils # (Manual) Basophils # (Manual) PT INR APTT ABG pH ABG pO2 ABG HCO3 ABG O2 Saturation ABG Base Excess ABG Hemoglobin Oxyhemoglobin Sodium Potassium 5.2 H Chloride Carbon Dioxide 21 L BUN 69 H Creatinine 1.5 H Glucose 117 H POC Glucose 128 H 138 H Lactic Acid Calcium Ionized Calcium Phosphorus Magnesium Total Bilirubin AST ALT Alkaline Phosphatase Ammonia Total Creatine Kinase CK-MB (CK-2) CK-MB (CK-2) Rel Index Total Protein Albumin Urine WBC (Auto) Vancomycin Trough Salicylates Acetaminophen Plasma/Serum Alcohol Crossmatch 12/23/19 12/24/19 12/24/19 23:46 04:31 05:08 WBC RBC Hgb Hct MCH RDW Plt Count Lymph % (Auto) [place] % (Auto) [place] # Baso # Seg Neutrophils % Seg Neuts % (Manual) Lymphocytes % (Manual) Monocytes % (Manual) Seg Neutrophils # Seg Neutrophils # Man Lymphocytes # (Manual) Monocytes # (Manual) Eosinophils # (Manual) Basophils # (Manual) PT INR APTT ABG pH ABG pO2 ABG HCO3 ABG O2 Saturation ABG Base Excess ABG Hemoglobin Oxyhemoglobin Sodium Potassium 5.3 H Chloride 107.6 H Carbon Dioxide 20 L BUN 72 H Creatinine 1.6 H Glucose 120 H POC Glucose 120 H 140 H Lactic Acid Calcium Ionized Calcium Phosphorus Magnesium Total Bilirubin AST ALT Alkaline Phosphatase Ammonia Total Creatine Kinase CK-MB (CK-2) CK-MB (CK-2) Rel Index Total Protein Albumin Urine WBC (Auto) Vancomycin Trough Salicylates Acetaminophen Plasma/Serum Alcohol Crossmatch 12/24/19 12/24/19 12/25/19 11:58 17:49 03:47 WBC 36.2 H RBC 2.92 L Hgb 8.4 L Hct 26.1 L MCH RDW 20.2 H Plt Count 942 H Lymph % (Auto) [place] % (Auto) [place] # Baso # Seg Neutrophils % Seg Neuts % (Manual) 97.5 H Lymphocytes % (Manual) 1.0 L Monocytes % (Manual) Seg Neutrophils # Seg Neutrophils # Man 35.3 H Lymphocytes # (Manual) 0.4 L Monocytes # (Manual) Eosinophils # (Manual) Basophils # (Manual) PT INR APTT ABG pH ABG pO2 ABG HCO3 ABG O2 Saturation ABG Base Excess ABG Hemoglobin Oxyhemoglobin Sodium Potassium Chloride Carbon Dioxide BUN Creatinine Glucose POC Glucose 146 H 131 H Lactic Acid Calcium Ionized Calcium Phosphorus Magnesium Total Bilirubin AST ALT Alkaline Phosphatase Ammonia Total Creatine Kinase CK-MB (CK-2) CK-MB (CK-2) Rel Index Total Protein Albumin Urine WBC (Auto) Vancomycin Trough Salicylates Acetaminophen Plasma/Serum Alcohol Crossmatch 12/25/19 12/25/19 12/25/19 03:47 05:30 12:23 WBC RBC Hgb Hct MCH RDW Plt Count Lymph % (Auto) [place] % (Auto) [place] # Baso # Seg Neutrophils % Seg Neuts % (Manual) Lymphocytes % (Manual) Monocytes % (Manual) Seg Neutrophils # Seg Neutrophils # Man Lymphocytes # (Manual) Monocytes # (Manual) Eosinophils # (Manual) Basophils # (Manual) PT INR APTT ABG pH ABG pO2 ABG HCO3 ABG O2 Saturation ABG Base Excess ABG Hemoglobin Oxyhemoglobin Sodium Potassium Chloride Carbon Dioxide 15 L BUN 70 H Creatinine 1.7 H Glucose 153 H POC Glucose 169 H 135 H Lactic Acid Calcium Ionized Calcium Phosphorus Magnesium Total Bilirubin AST ALT Alkaline Phosphatase Ammonia Total Creatine Kinase CK-MB (CK-2) CK-MB (CK-2) Rel Index Total Protein Albumin Urine WBC (Auto) Vancomycin Trough Salicylates Acetaminophen Plasma/Serum Alcohol Crossmatch 12/25/19 12/25/19 12/26/19 17:37 23:29 09:47 WBC 22.1 H RBC 2.83 L Hgb 7.9 L Hct 25.5 L MCH RDW 20.0 H Plt Count 894 H Lymph % (Auto) [place] % (Auto) [place] # Baso # Seg Neutrophils % Seg Neuts % (Manual) Lymphocytes % (Manual) Monocytes % (Manual) Seg Neutrophils # Seg Neutrophils # Man Lymphocytes # (Manual) Monocytes # (Manual) Eosinophils # (Manual) Basophils # (Manual) PT INR APTT ABG pH ABG pO2 ABG HCO3 ABG O2 Saturation ABG Base Excess ABG Hemoglobin Oxyhemoglobin Sodium Potassium Chloride Carbon Dioxide BUN Creatinine Glucose POC Glucose 120 H 140 H Lactic Acid Calcium Ionized Calcium Phosphorus Magnesium Total Bilirubin AST ALT Alkaline Phosphatase Ammonia Total Creatine Kinase CK-MB (CK-2) CK-MB (CK-2) Rel Index Total Protein Albumin Urine WBC (Auto) Vancomycin Trough Salicylates Acetaminophen Plasma/Serum Alcohol Crossmatch 12/26/19 12/26/19 12/26/19 09:47 11:46 17:52 WBC RBC Hgb Hct MCH RDW Plt Count Lymph % (Auto) [place] % (Auto) [place] # Baso # Seg Neutrophils % Seg Neuts % (Manual) Lymphocytes % (Manual) Monocytes % (Manual) Seg Neutrophils # Seg Neutrophils # Man Lymphocytes # (Manual) Monocytes # (Manual) Eosinophils # (Manual) Basophils # (Manual) PT INR APTT ABG pH ABG pO2 ABG HCO3 ABG O2 Saturation ABG Base Excess ABG Hemoglobin Oxyhemoglobin Sodium Potassium Chloride Carbon Dioxide 18 L BUN 65 H Creatinine 1.4 H Glucose 132 H POC Glucose 110 H 145 H Lactic Acid Calcium Ionized Calcium Phosphorus Magnesium Total Bilirubin AST ALT Alkaline Phosphatase Ammonia Total Creatine Kinase CK-MB (CK-2) CK-MB (CK-2) Rel Index Total Protein Albumin Urine WBC (Auto) Vancomycin Trough Salicylates Acetaminophen Plasma/Serum Alcohol Crossmatch 12/27/19 12/27/19 12/27/19 00:01 03:42 03:42 WBC 18.0 H RBC 2.86 L Hgb 8.0 L Hct 25.2 L MCH RDW 19.2 H Plt Count 873 H Lymph % (Auto) 8.4 L [place] % (Auto) 7.5 H [place] # 1.4 H Baso # 0.2 H Seg Neutrophils % 82.2 H Seg Neuts % (Manual) Lymphocytes % (Manual) Monocytes % (Manual) Seg Neutrophils # 14.8 H Seg Neutrophils # Man Lymphocytes # (Manual) Monocytes # (Manual) Eosinophils # (Manual) Basophils # (Manual) PT INR APTT ABG pH ABG pO2 ABG HCO3 ABG O2 Saturation ABG Base Excess ABG Hemoglobin Oxyhemoglobin Sodium Potassium Chloride Carbon Dioxide BUN 73 H Creatinine 1.4 H Glucose 119 H POC Glucose 124 H Lactic Acid Calcium Ionized Calcium Phosphorus Magnesium Total Bilirubin AST ALT Alkaline Phosphatase Ammonia Total Creatine Kinase CK-MB (CK-2) CK-MB (CK-2) Rel Index Total Protein Albumin Urine WBC (Auto) Vancomycin Trough Salicylates Acetaminophen Plasma/Serum Alcohol Crossmatch 12/27/19 12/27/19 12/27/19 05:45 11:45 17:29 WBC RBC Hgb Hct MCH RDW Plt Count Lymph % (Auto) [place] % (Auto) [place] # Baso # Seg Neutrophils % Seg Neuts % (Manual) Lymphocytes % (Manual) Monocytes % (Manual) Seg Neutrophils # Seg Neutrophils # Man Lymphocytes # (Manual) Monocytes # (Manual) Eosinophils # (Manual) Basophils # (Manual) PT INR APTT ABG pH ABG pO2 ABG HCO3 ABG O2 Saturation ABG Base Excess ABG Hemoglobin Oxyhemoglobin Sodium Potassium Chloride Carbon Dioxide BUN Creatinine Glucose POC Glucose 131 H 123 H 134 H Lactic Acid Calcium Ionized Calcium Phosphorus Magnesium Total Bilirubin AST ALT Alkaline Phosphatase Ammonia Total Creatine Kinase CK-MB (CK-2) CK-MB (CK-2) Rel Index Total Protein Albumin Urine WBC (Auto) Vancomycin Trough Salicylates Acetaminophen Plasma/Serum Alcohol Crossmatch 12/28/19 12/28/19 12/28/19 00:12 05:14 11:53 WBC RBC Hgb Hct MCH RDW Plt Count Lymph % (Auto) [place] % (Auto) [place] # Baso # Seg Neutrophils % Seg Neuts % (Manual) Lymphocytes % (Manual) Monocytes % (Manual) Seg Neutrophils # Seg Neutrophils # Man Lymphocytes # (Manual) Monocytes # (Manual) Eosinophils # (Manual) Basophils # (Manual) PT INR APTT ABG pH ABG pO2 ABG HCO3 ABG O2 Saturation ABG Base Excess ABG Hemoglobin Oxyhemoglobin Sodium Potassium Chloride Carbon Dioxide BUN Creatinine Glucose POC Glucose 138 H 130 H 146 H Lactic Acid Calcium Ionized Calcium Phosphorus Magnesium Total Bilirubin AST ALT Alkaline Phosphatase Ammonia Total Creatine Kinase CK-MB (CK-2) CK-MB (CK-2) Rel Index Total Protein Albumin Urine WBC (Auto) Vancomycin Trough Salicylates Acetaminophen Plasma/Serum Alcohol Crossmatch 12/28/19 12/29/19 12/29/19 17:39 00:01 18:11 WBC RBC Hgb Hct MCH RDW Plt Count Lymph % (Auto) [place] % (Auto) [place] # Baso # Seg Neutrophils % Seg Neuts % (Manual) Lymphocytes % (Manual) Monocytes % (Manual) Seg Neutrophils # Seg Neutrophils # Man Lymphocytes # (Manual) Monocytes # (Manual) Eosinophils # (Manual) Basophils # (Manual) PT INR APTT ABG pH ABG pO2 ABG HCO3 ABG O2 Saturation ABG Base Excess ABG Hemoglobin Oxyhemoglobin Sodium Potassium Chloride Carbon Dioxide BUN Creatinine Glucose POC Glucose 117 H 139 H 130 H Lactic Acid Calcium Ionized Calcium Phosphorus Magnesium Total Bilirubin AST ALT Alkaline Phosphatase Ammonia Total Creatine Kinase CK-MB (CK-2) CK-MB (CK-2) Rel Index Total Protein Albumin Urine WBC (Auto) Vancomycin Trough Salicylates Acetaminophen Plasma/Serum Alcohol Crossmatch 12/29/19 12/30/19 12/30/19 23:09 00:02 01:06 WBC 16.7 H RBC 2.91 L Hgb 8.2 L Hct 25.4 L MCH RDW 18.7 H Plt Count 708 H Lymph % (Auto) 9.4 L [place] % (Auto) [place] # 0.9 H Baso # Seg Neutrophils % 83.5 H Seg Neuts % (Manual) Lymphocytes % (Manual) Monocytes % (Manual) Seg Neutrophils # 14.0 H Seg Neutrophils # Man Lymphocytes # (Manual) Monocytes # (Manual) Eosinophils # (Manual) Basophils # (Manual) PT INR APTT ABG pH ABG pO2 ABG HCO3 ABG O2 Saturation ABG Base Excess ABG Hemoglobin Oxyhemoglobin Sodium Potassium Chloride Carbon Dioxide BUN Creatinine Glucose POC Glucose 120 H 114 H Lactic Acid Calcium Ionized Calcium Phosphorus Magnesium Total Bilirubin AST ALT Alkaline Phosphatase Ammonia Total Creatine Kinase CK-MB (CK-2) CK-MB (CK-2) Rel Index Total Protein Albumin Urine WBC (Auto) Vancomycin Trough Salicylates Acetaminophen Plasma/Serum Alcohol Crossmatch 12/30/19 12/30/19 12/30/19 01:06 04:23 05:18 WBC RBC Hgb Hct MCH RDW Plt Count Lymph % (Auto) [place] % (Auto) [place] # Baso # Seg Neutrophils % Seg Neuts % (Manual) Lymphocytes % (Manual) Monocytes % (Manual) Seg Neutrophils # Seg Neutrophils # Man Lymphocytes # (Manual) Monocytes # (Manual) Eosinophils # (Manual) Basophils # (Manual) PT INR APTT ABG pH ABG pO2 ABG HCO3 ABG O2 Saturation ABG Base Excess ABG Hemoglobin 8.3 L Oxyhemoglobin Sodium Potassium Chloride Carbon Dioxide BUN 70 H Creatinine Glucose 122 H POC Glucose 130 H Lactic Acid Calcium Ionized Calcium Phosphorus Magnesium Total Bilirubin AST ALT Alkaline Phosphatase Ammonia Total Creatine Kinase CK-MB (CK-2) CK-MB (CK-2) Rel Index Total Protein Albumin Urine WBC (Auto) Vancomycin Trough Salicylates Acetaminophen Plasma/Serum Alcohol Crossmatch 12/30/19 12/30/19 12/30/19 05:40 12:17 17:43 WBC RBC Hgb Hct MCH RDW Plt Count Lymph % (Auto) [place] % (Auto) [place] # Baso # Seg Neutrophils % Seg Neuts % (Manual) Lymphocytes % (Manual) Monocytes % (Manual) Seg Neutrophils # Seg Neutrophils # Man Lymphocytes # (Manual) Monocytes # (Manual) Eosinophils # (Manual) Basophils # (Manual) PT INR APTT ABG pH ABG pO2 ABG HCO3 ABG O2 Saturation ABG Base Excess ABG Hemoglobin Oxyhemoglobin Sodium Potassium Chloride Carbon Dioxide BUN Creatinine Glucose POC Glucose 135 H 132 H 118 H Lactic Acid Calcium Ionized Calcium Phosphorus Magnesium Total Bilirubin AST ALT Alkaline Phosphatase Ammonia Total Creatine Kinase CK-MB (CK-2) CK-MB (CK-2) Rel Index Total Protein Albumin Urine WBC (Auto) Vancomycin Trough Salicylates Acetaminophen Plasma/Serum Alcohol Crossmatch 12/30/19 12/31/19 12/31/19 23:29 05:19 17:50 WBC RBC Hgb Hct MCH RDW Plt Count Lymph % (Auto) [place] % (Auto) [place] # Baso # Seg Neutrophils % Seg Neuts % (Manual) Lymphocytes % (Manual) Monocytes % (Manual) Seg Neutrophils # Seg Neutrophils # Man Lymphocytes # (Manual) Monocytes # (Manual) Eosinophils # (Manual) Basophils # (Manual) PT INR APTT ABG pH ABG pO2 ABG HCO3 ABG O2 Saturation ABG Base Excess ABG Hemoglobin Oxyhemoglobin Sodium Potassium Chloride Carbon Dioxide BUN Creatinine Glucose POC Glucose 114 H 109 H 116 H Lactic Acid Calcium Ionized Calcium Phosphorus Magnesium Total Bilirubin AST ALT Alkaline Phosphatase Ammonia Total Creatine Kinase CK-MB (CK-2) CK-MB (CK-2) Rel Index Total Protein Albumin Urine WBC (Auto) Vancomycin Trough Salicylates Acetaminophen Plasma/Serum Alcohol Crossmatch 01/01/20 01/01/20 01/01/20 00:10 05:19 12:02 WBC RBC Hgb Hct MCH RDW Plt Count Lymph % (Auto) [place] % (Auto) [place] # Baso # Seg Neutrophils % Seg Neuts % (Manual) Lymphocytes % (Manual) Monocytes % (Manual) Seg Neutrophils # Seg Neutrophils # Man Lymphocytes # (Manual) Monocytes # (Manual) Eosinophils # (Manual) Basophils # (Manual) PT INR APTT ABG pH ABG pO2 ABG HCO3 ABG O2 Saturation ABG Base Excess ABG Hemoglobin Oxyhemoglobin Sodium Potassium Chloride Carbon Dioxide BUN Creatinine Glucose POC Glucose 131 H 122 H 136 H Lactic Acid Calcium Ionized Calcium Phosphorus Magnesium Total Bilirubin AST ALT Alkaline Phosphatase Ammonia Total Creatine Kinase CK-MB (CK-2) CK-MB (CK-2) Rel Index Total Protein Albumin Urine WBC (Auto) Vancomycin Trough Salicylates Acetaminophen Plasma/Serum Alcohol Crossmatch 01/02/20 01/02/20 01/02/20 00:24 05:36 11:41 WBC RBC Hgb Hct MCH RDW Plt Count Lymph % (Auto) [place] % (Auto) [place] # Baso # Seg Neutrophils % Seg Neuts % (Manual) Lymphocytes % (Manual) Monocytes % (Manual) Seg Neutrophils # Seg Neutrophils # Man Lymphocytes # (Manual) Monocytes # (Manual) Eosinophils # (Manual) Basophils # (Manual) PT INR APTT ABG pH ABG pO2 ABG HCO3 ABG O2 Saturation ABG Base Excess ABG Hemoglobin Oxyhemoglobin Sodium Potassium Chloride Carbon Dioxide BUN Creatinine Glucose POC Glucose 119 H 109 H 125 H Lactic Acid Calcium Ionized Calcium Phosphorus Magnesium Total Bilirubin AST ALT Alkaline Phosphatase Ammonia Total Creatine Kinase CK-MB (CK-2) CK-MB (CK-2) Rel Index Total Protein Albumin Urine WBC (Auto) Vancomycin Trough Salicylates Acetaminophen Plasma/Serum Alcohol Crossmatch 01/02/20 01/03/20 01/03/20 17:49 05:29 12:13 WBC RBC Hgb Hct MCH RDW Plt Count Lymph % (Auto) [place] % (Auto) [place] # Baso # Seg Neutrophils % Seg Neuts % (Manual) Lymphocytes % (Manual) Monocytes % (Manual) Seg Neutrophils # Seg Neutrophils # Man Lymphocytes # (Manual) Monocytes # (Manual) Eosinophils # (Manual) Basophils # (Manual) PT INR APTT ABG pH ABG pO2 ABG HCO3 ABG O2 Saturation ABG Base Excess ABG Hemoglobin Oxyhemoglobin Sodium Potassium Chloride Carbon Dioxide BUN Creatinine Glucose POC Glucose 130 H 132 H 113 H Lactic Acid Calcium Ionized Calcium Phosphorus Magnesium Total Bilirubin AST ALT Alkaline Phosphatase Ammonia Total Creatine Kinase CK-MB (CK-2) CK-MB (CK-2) Rel Index Total Protein Albumin Urine WBC (Auto) Vancomycin Trough Salicylates Acetaminophen Plasma/Serum Alcohol Crossmatch 01/03/20 01/04/20 01/04/20 17:32 00:19 05:26 WBC RBC Hgb Hct MCH RDW Plt Count Lymph % (Auto) [place] % (Auto) [place] # Baso # Seg Neutrophils % Seg Neuts % (Manual) Lymphocytes % (Manual) Monocytes % (Manual) Seg Neutrophils # Seg Neutrophils # Man Lymphocytes # (Manual) Monocytes # (Manual) Eosinophils # (Manual) Basophils # (Manual) PT INR APTT ABG pH ABG pO2 ABG HCO3 ABG O2 Saturation ABG Base Excess ABG Hemoglobin Oxyhemoglobin Sodium Potassium Chloride Carbon Dioxide BUN Creatinine Glucose POC Glucose 127 H 141 H 129 H Lactic Acid Calcium Ionized Calcium Phosphorus Magnesium Total Bilirubin AST ALT Alkaline Phosphatase Ammonia Total Creatine Kinase CK-MB (CK-2) CK-MB (CK-2) Rel Index Total Protein Albumin Urine WBC (Auto) Vancomycin Trough Salicylates Acetaminophen Plasma/Serum Alcohol Crossmatch 01/04/20 01/04/20 01/05/20 11:39 17:29 05:22 WBC RBC Hgb Hct MCH RDW Plt Count Lymph % (Auto) [place] % (Auto) [place] # Baso # Seg Neutrophils % Seg Neuts % (Manual) Lymphocytes % (Manual) Monocytes % (Manual) Seg Neutrophils # Seg Neutrophils # Man Lymphocytes # (Manual) Monocytes # (Manual) Eosinophils # (Manual) Basophils # (Manual) PT INR APTT ABG pH ABG pO2 ABG HCO3 ABG O2 Saturation ABG Base Excess ABG Hemoglobin Oxyhemoglobin Sodium Potassium Chloride Carbon Dioxide BUN Creatinine Glucose POC Glucose 167 H 132 H 121 H Lactic Acid Calcium Ionized Calcium Phosphorus Magnesium Total Bilirubin AST ALT Alkaline Phosphatase Ammonia Total Creatine Kinase CK-MB (CK-2) CK-MB (CK-2) Rel Index Total Protein Albumin Urine WBC (Auto) Vancomycin Trough Salicylates Acetaminophen Plasma/Serum Alcohol Crossmatch 01/05/20 01/05/20 01/05/20 12:25 17:40 18:06 WBC RBC Hgb Hct MCH RDW Plt Count Lymph % (Auto) [place] % (Auto) [place] # Baso # Seg Neutrophils % Seg Neuts % (Manual) Lymphocytes % (Manual) Monocytes % (Manual) Seg Neutrophils # Seg Neutrophils # Man Lymphocytes # (Manual) Monocytes # (Manual) Eosinophils # (Manual) Basophils # (Manual) PT INR APTT ABG pH 7.472 H ABG pO2 99.2 H ABG HCO3 ABG O2 Saturation ABG Base Excess ABG Hemoglobin 7.8 L Oxyhemoglobin Sodium Potassium Chloride Carbon Dioxide BUN Creatinine Glucose POC Glucose 106 H 110 H Lactic Acid Calcium Ionized Calcium Phosphorus Magnesium Total Bilirubin AST ALT Alkaline Phosphatase Ammonia Total Creatine Kinase CK-MB (CK-2) CK-MB (CK-2) Rel Index Total Protein Albumin Urine WBC (Auto) Vancomycin Trough Salicylates Acetaminophen Plasma/Serum Alcohol Crossmatch 01/06/20 01/06/20 01/06/20 00:11 05:16 11:30 WBC RBC Hgb Hct MCH RDW Plt Count Lymph % (Auto) [place] % (Auto) [place] # Baso # Seg Neutrophils % Seg Neuts % (Manual) Lymphocytes % (Manual) Monocytes % (Manual) Seg Neutrophils # Seg Neutrophils # Man Lymphocytes # (Manual) Monocytes # (Manual) Eosinophils # (Manual) Basophils # (Manual) PT INR APTT ABG pH ABG pO2 ABG HCO3 ABG O2 Saturation ABG Base Excess ABG Hemoglobin Oxyhemoglobin Sodium Potassium Chloride Carbon Dioxide BUN Creatinine Glucose POC Glucose 108 H 124 H 125 H Lactic Acid Calcium Ionized Calcium Phosphorus Magnesium Total Bilirubin AST ALT Alkaline Phosphatase Ammonia Total Creatine Kinase CK-MB (CK-2) CK-MB (CK-2) Rel Index Total Protein Albumin Urine WBC (Auto) Vancomycin Trough Salicylates Acetaminophen Plasma/Serum Alcohol Crossmatch 01/06/20 01/06/20 01/07/20 17:53 23:51 04:12 WBC 16.5 H RBC 3.29 L Hgb 9.3 L Hct 28.1 L MCH RDW 18.2 H Plt Count 526 H Lymph % (Auto) 8.4 L [place] % (Auto) [place] # 1.0 H Baso # Seg Neutrophils % 84.4 H Seg Neuts % (Manual) Lymphocytes % (Manual) Monocytes % (Manual) Seg Neutrophils # 13.9 H Seg Neutrophils # Man Lymphocytes # (Manual) Monocytes # (Manual) Eosinophils # (Manual) Basophils # (Manual) PT INR APTT ABG pH ABG pO2 ABG HCO3 ABG O2 Saturation ABG Base Excess ABG Hemoglobin Oxyhemoglobin Sodium Potassium Chloride Carbon Dioxide BUN Creatinine Glucose POC Glucose 166 H 128 H Lactic Acid Calcium Ionized Calcium Phosphorus Magnesium Total Bilirubin AST ALT Alkaline Phosphatase Ammonia Total Creatine Kinase CK-MB (CK-2) CK-MB (CK-2) Rel Index Total Protein Albumin Urine WBC (Auto) Vancomycin Trough Salicylates Acetaminophen Plasma/Serum Alcohol Crossmatch 01/07/20 01/07/20 01/07/20 04:12 04:45 11:51 WBC RBC Hgb Hct MCH RDW Plt Count Lymph % (Auto) [place] % (Auto) [place] # Baso # Seg Neutrophils % Seg Neuts % (Manual) Lymphocytes % (Manual) Monocytes % (Manual) Seg Neutrophils # Seg Neutrophils # Man Lymphocytes # (Manual) Monocytes # (Manual) Eosinophils # (Manual) Basophils # (Manual) PT INR APTT ABG pH ABG pO2 ABG HCO3 ABG O2 Saturation ABG Base Excess ABG Hemoglobin Oxyhemoglobin Sodium 136 L Potassium Chloride Carbon Dioxide 21 L BUN 44 H Creatinine 0.6 L Glucose 124 H POC Glucose 134 H 138 H Lactic Acid Calcium Ionized Calcium Phosphorus Magnesium Total Bilirubin AST ALT Alkaline Phosphatase Ammonia Total Creatine Kinase CK-MB (CK-2) CK-MB (CK-2) Rel Index Total Protein Albumin Urine WBC (Auto) Vancomycin Trough Salicylates Acetaminophen Plasma/Serum Alcohol Crossmatch 01/07/20 01/08/20 01/08/20 17:36 00:33 05:29 WBC RBC Hgb Hct MCH RDW Plt Count Lymph % (Auto) [place] % (Auto) [place] # Baso # Seg Neutrophils % Seg Neuts % (Manual) Lymphocytes % (Manual) Monocytes % (Manual) Seg Neutrophils # Seg Neutrophils # Man Lymphocytes # (Manual) Monocytes # (Manual) Eosinophils # (Manual) Basophils # (Manual) PT INR APTT ABG pH ABG pO2 ABG HCO3 ABG O2 Saturation ABG Base Excess ABG Hemoglobin Oxyhemoglobin Sodium Potassium Chloride Carbon Dioxide BUN Creatinine Glucose POC Glucose 128 H 119 H 124 H Lactic Acid Calcium Ionized Calcium Phosphorus Magnesium Total Bilirubin AST ALT Alkaline Phosphatase Ammonia Total Creatine Kinase CK-MB (CK-2) CK-MB (CK-2) Rel Index Total Protein Albumin Urine WBC (Auto) Vancomycin Trough Salicylates Acetaminophen Plasma/Serum Alcohol Crossmatch 01/08/20 01/08/20 01/08/20 12:51 20:25 23:22 WBC RBC Hgb Hct MCH RDW Plt Count Lymph % (Auto) [place] % (Auto) [place] # Baso # Seg Neutrophils % Seg Neuts % (Manual) Lymphocytes % (Manual) Monocytes % (Manual) Seg Neutrophils # Seg Neutrophils # Man Lymphocytes # (Manual) Monocytes # (Manual) Eosinophils # (Manual) Basophils # (Manual) PT INR APTT ABG pH ABG pO2 132.2 H ABG HCO3 ABG O2 Saturation ABG Base Excess ABG Hemoglobin Oxyhemoglobin Sodium Potassium Chloride Carbon Dioxide BUN Creatinine Glucose POC Glucose 128 H 127 H Lactic Acid Calcium Ionized Calcium Phosphorus Magnesium Total Bilirubin AST ALT Alkaline Phosphatase Ammonia Total Creatine Kinase CK-MB (CK-2) CK-MB (CK-2) Rel Index Total Protein Albumin Urine WBC (Auto) Vancomycin Trough Salicylates Acetaminophen Plasma/Serum Alcohol Crossmatch 01/09/20 01/09/20 01/09/20 05:48 08:51 11:29 WBC RBC Hgb Hct MCH RDW Plt Count Lymph % (Auto) [place] % (Auto) [place] # Baso # Seg Neutrophils % Seg Neuts % (Manual) Lymphocytes % (Manual) Monocytes % (Manual) Seg Neutrophils # Seg Neutrophils # Man Lymphocytes # (Manual) Monocytes # (Manual) Eosinophils # (Manual) Basophils # (Manual) PT INR APTT ABG pH ABG pO2 94.3 H ABG HCO3 ABG O2 Saturation ABG Base Excess ABG Hemoglobin 9.5 L Oxyhemoglobin Sodium Potassium Chloride Carbon Dioxide BUN Creatinine Glucose POC Glucose 120 H 112 H Lactic Acid Calcium Ionized Calcium Phosphorus Magnesium Total Bilirubin AST ALT Alkaline Phosphatase Ammonia Total Creatine Kinase CK-MB (CK-2) CK-MB (CK-2) Rel Index Total Protein Albumin Urine WBC (Auto) Vancomycin Trough Salicylates Acetaminophen Plasma/Serum Alcohol Crossmatch 01/09/20 01/10/20 01/10/20 17:57 05:17 12:28 WBC RBC Hgb Hct MCH RDW Plt Count Lymph % (Auto) [place] % (Auto) [place] # Baso # Seg Neutrophils % Seg Neuts % (Manual) Lymphocytes % (Manual) Monocytes % (Manual) Seg Neutrophils # Seg Neutrophils # Man Lymphocytes # (Manual) Monocytes # (Manual) Eosinophils # (Manual) Basophils # (Manual) PT INR APTT ABG pH ABG pO2 ABG HCO3 ABG O2 Saturation ABG Base Excess ABG Hemoglobin Oxyhemoglobin Sodium Potassium Chloride Carbon Dioxide BUN Creatinine Glucose POC Glucose 122 H 115 H 116 H Lactic Acid Calcium Ionized Calcium Phosphorus Magnesium Total Bilirubin AST ALT Alkaline Phosphatase Ammonia Total Creatine Kinase CK-MB (CK-2) CK-MB (CK-2) Rel Index Total Protein Albumin Urine WBC (Auto) Vancomycin Trough Salicylates Acetaminophen Plasma/Serum Alcohol Crossmatch 01/10/20 01/10/20 01/11/20 18:25 23:47 06:05 WBC RBC Hgb Hct MCH RDW Plt Count Lymph % (Auto) [place] % (Auto) [place] # Baso # Seg Neutrophils % Seg Neuts % (Manual) Lymphocytes % (Manual) Monocytes % (Manual) Seg Neutrophils # Seg Neutrophils # Man Lymphocytes # (Manual) Monocytes # (Manual) Eosinophils # (Manual) Basophils # (Manual) PT INR APTT ABG pH ABG pO2 ABG HCO3 ABG O2 Saturation ABG Base Excess ABG Hemoglobin Oxyhemoglobin Sodium Potassium Chloride Carbon Dioxide BUN Creatinine Glucose POC Glucose 123 H 115 H 151 H Lactic Acid Calcium Ionized Calcium Phosphorus Magnesium Total Bilirubin AST ALT Alkaline Phosphatase Ammonia Total Creatine Kinase CK-MB (CK-2) CK-MB (CK-2) Rel Index Total Protein Albumin Urine WBC (Auto) Vancomycin Trough Salicylates Acetaminophen Plasma/Serum Alcohol Crossmatch 01/11/20 01/11/20 01/11/20 07:00 07:00 12:27 WBC 11.8 H RBC 3.40 L Hgb 9.4 L Hct 29.3 L MCH RDW 18.1 H Plt Count 549 H Lymph % (Auto) [place] % (Auto) 9.1 H [place] # 1.1 H Baso # Seg Neutrophils % 73.3 H Seg Neuts % (Manual) Lymphocytes % (Manual) Monocytes % (Manual) Seg Neutrophils # 8.7 H Seg Neutrophils # Man Lymphocytes # (Manual) Monocytes # (Manual) Eosinophils # (Manual) Basophils # (Manual) PT INR APTT ABG pH ABG pO2 ABG HCO3 ABG O2 Saturation ABG Base Excess ABG Hemoglobin Oxyhemoglobin Sodium 134 L Potassium Chloride 97.7 L Carbon Dioxide 21 L BUN 38 H Creatinine 0.5 L Glucose 168 H POC Glucose 117 H Lactic Acid Calcium 10.5 H Ionized Calcium Phosphorus Magnesium Total Bilirubin AST ALT Alkaline Phosphatase Ammonia Total Creatine Kinase CK-MB (CK-2) CK-MB (CK-2) Rel Index Total Protein Albumin Urine WBC (Auto) Vancomycin Trough Salicylates Acetaminophen Plasma/Serum Alcohol Crossmatch 01/11/20 01/12/20 01/12/20 18:19 00:53 05:24 WBC RBC Hgb Hct MCH RDW Plt Count Lymph % (Auto) [place] % (Auto) [place] # Baso # Seg Neutrophils % Seg Neuts % (Manual) Lymphocytes % (Manual) Monocytes % (Manual) Seg Neutrophils # Seg Neutrophils # Man Lymphocytes # (Manual) Monocytes # (Manual) Eosinophils # (Manual) Basophils # (Manual) PT INR APTT ABG pH ABG pO2 ABG HCO3 ABG O2 Saturation ABG Base Excess ABG Hemoglobin Oxyhemoglobin Sodium Potassium Chloride Carbon Dioxide BUN Creatinine Glucose POC Glucose 126 H 126 H 128 H Lactic Acid Calcium Ionized Calcium Phosphorus Magnesium Total Bilirubin AST ALT Alkaline Phosphatase Ammonia Total Creatine Kinase CK-MB (CK-2) CK-MB (CK-2) Rel Index Total Protein Albumin Urine WBC (Auto) Vancomycin Trough Salicylates Acetaminophen Plasma/Serum Alcohol Crossmatch 01/12/20 01/12/20 01/13/20 13:39 18:02 00:27 WBC RBC Hgb Hct MCH RDW Plt Count Lymph % (Auto) [place] % (Auto) [place] # Baso # Seg Neutrophils % Seg Neuts % (Manual) Lymphocytes % (Manual) Monocytes % (Manual) Seg Neutrophils # Seg Neutrophils # Man Lymphocytes # (Manual) Monocytes # (Manual) Eosinophils # (Manual) Basophils # (Manual) PT INR APTT ABG pH ABG pO2 ABG HCO3 ABG O2 Saturation ABG Base Excess ABG Hemoglobin Oxyhemoglobin Sodium Potassium Chloride Carbon Dioxide BUN Creatinine Glucose POC Glucose 146 H 125 H 131 H Lactic Acid Calcium Ionized Calcium Phosphorus Magnesium Total Bilirubin AST ALT Alkaline Phosphatase Ammonia Total Creatine Kinase CK-MB (CK-2) CK-MB (CK-2) Rel Index Total Protein Albumin Urine WBC (Auto) Vancomycin Trough Salicylates Acetaminophen Plasma/Serum Alcohol Crossmatch 01/13/20 01/13/20 01/13/20 05:44 11:54 17:18 WBC RBC Hgb Hct MCH RDW Plt Count Lymph % (Auto) [place] % (Auto) [place] # Baso # Seg Neutrophils % Seg Neuts % (Manual) Lymphocytes % (Manual) Monocytes % (Manual) Seg Neutrophils # Seg Neutrophils # Man Lymphocytes # (Manual) Monocytes # (Manual) Eosinophils # (Manual) Basophils # (Manual) PT INR APTT ABG pH ABG pO2 ABG HCO3 ABG O2 Saturation ABG Base Excess ABG Hemoglobin Oxyhemoglobin Sodium Potassium Chloride Carbon Dioxide BUN Creatinine Glucose POC Glucose 148 H 140 H 130 H Lactic Acid Calcium Ionized Calcium Phosphorus Magnesium Total Bilirubin AST ALT Alkaline Phosphatase Ammonia Total Creatine Kinase CK-MB (CK-2) CK-MB (CK-2) Rel Index Total Protein Albumin Urine WBC (Auto) Vancomycin Trough Salicylates Acetaminophen Plasma/Serum Alcohol Crossmatch 01/14/20 01/14/20 01/14/20 00:16 05:45 12:19 WBC RBC Hgb Hct MCH RDW Plt Count Lymph % (Auto) [place] % (Auto) [place] # Baso # Seg Neutrophils % Seg Neuts % (Manual) Lymphocytes % (Manual) Monocytes % (Manual) Seg Neutrophils # Seg Neutrophils # Man Lymphocytes # (Manual) Monocytes # (Manual) Eosinophils # (Manual) Basophils # (Manual) PT INR APTT ABG pH ABG pO2 ABG HCO3 ABG O2 Saturation ABG Base Excess ABG Hemoglobin Oxyhemoglobin Sodium Potassium Chloride Carbon Dioxide BUN Creatinine Glucose POC Glucose 125 H 146 H 147 H Lactic Acid Calcium Ionized Calcium Phosphorus Magnesium Total Bilirubin AST ALT Alkaline Phosphatase Ammonia Total Creatine Kinase CK-MB (CK-2) CK-MB (CK-2) Rel Index Total Protein Albumin Urine WBC (Auto) Vancomycin Trough Salicylates Acetaminophen Plasma/Serum Alcohol Crossmatch 01/14/20 01/14/20 01/15/20 18:10 23:54 05:14 WBC RBC Hgb Hct MCH RDW Plt Count Lymph % (Auto) [place] % (Auto) [place] # Baso # Seg Neutrophils % Seg Neuts % (Manual) Lymphocytes % (Manual) Monocytes % (Manual) Seg Neutrophils # Seg Neutrophils # Man Lymphocytes # (Manual) Monocytes # (Manual) Eosinophils # (Manual) Basophils # (Manual) PT INR APTT ABG pH ABG pO2 ABG HCO3 ABG O2 Saturation ABG Base Excess ABG Hemoglobin Oxyhemoglobin Sodium Potassium Chloride Carbon Dioxide BUN Creatinine Glucose POC Glucose 136 H 109 H 111 H Lactic Acid Calcium Ionized Calcium Phosphorus Magnesium Total Bilirubin AST ALT Alkaline Phosphatase Ammonia Total Creatine Kinase CK-MB (CK-2) CK-MB (CK-2) Rel Index Total Protein Albumin Urine WBC (Auto) Vancomycin Trough Salicylates Acetaminophen Plasma/Serum Alcohol Crossmatch 01/15/20 01/15/20 01/16/20 12:34 23:25 05:06 WBC RBC Hgb Hct MCH RDW Plt Count Lymph % (Auto) [place] % (Auto) [place] # Baso # Seg Neutrophils % Seg Neuts % (Manual) Lymphocytes % (Manual) Monocytes % (Manual) Seg Neutrophils # Seg Neutrophils # Man Lymphocytes # (Manual) Monocytes # (Manual) Eosinophils # (Manual) Basophils # (Manual) PT INR APTT ABG pH ABG pO2 ABG HCO3 ABG O2 Saturation ABG Base Excess ABG Hemoglobin Oxyhemoglobin Sodium Potassium Chloride Carbon Dioxide BUN Creatinine Glucose POC Glucose 131 H 120 H 121 H Lactic Acid Calcium Ionized Calcium Phosphorus Magnesium Total Bilirubin AST ALT Alkaline Phosphatase Ammonia Total Creatine Kinase CK-MB (CK-2) CK-MB (CK-2) Rel Index Total Protein Albumin Urine WBC (Auto) Vancomycin Trough Salicylates Acetaminophen Plasma/Serum Alcohol Crossmatch 01/16/20 01/16/20 01/17/20 12:15 23:46 05:32 WBC 13.6 H RBC 3.27 L Hgb 9.3 L Hct 28.5 L MCH RDW 17.0 H Plt Count 490 H Lymph % (Auto) 13.1 L [place] % (Auto) [place] # 1.0 H Baso # Seg Neutrophils % 77.5 H Seg Neuts % (Manual) Lymphocytes % (Manual) Monocytes % (Manual) Seg Neutrophils # 10.5 H Seg Neutrophils # Man Lymphocytes # (Manual) Monocytes # (Manual) Eosinophils # (Manual) Basophils # (Manual) PT INR APTT ABG pH ABG pO2 ABG HCO3 ABG O2 Saturation ABG Base Excess ABG Hemoglobin Oxyhemoglobin Sodium Potassium Chloride Carbon Dioxide BUN Creatinine Glucose POC Glucose 152 H 107 H Lactic Acid Calcium Ionized Calcium Phosphorus Magnesium Total Bilirubin AST ALT Alkaline Phosphatase Ammonia Total Creatine Kinase CK-MB (CK-2) CK-MB (CK-2) Rel Index Total Protein Albumin Urine WBC (Auto) Vancomycin Trough Salicylates Acetaminophen Plasma/Serum Alcohol Crossmatch 01/17/20 01/17/20 01/17/20 06:47 12:16 17:21 WBC RBC Hgb Hct MCH RDW Plt Count Lymph % (Auto) [place] % (Auto) [place] # Baso # Seg Neutrophils % Seg Neuts % (Manual) Lymphocytes % (Manual) Monocytes % (Manual) Seg Neutrophils # Seg Neutrophils # Man Lymphocytes # (Manual) Monocytes # (Manual) Eosinophils # (Manual) Basophils # (Manual) PT INR APTT ABG pH ABG pO2 ABG HCO3 ABG O2 Saturation ABG Base Excess ABG Hemoglobin Oxyhemoglobin Sodium Potassium Chloride Carbon Dioxide BUN Creatinine Glucose POC Glucose 112 H 145 H 150 H Lactic Acid Calcium Ionized Calcium Phosphorus Magnesium Total Bilirubin AST ALT Alkaline Phosphatase Ammonia Total Creatine Kinase CK-MB (CK-2) CK-MB (CK-2) Rel Index Total Protein Albumin Urine WBC (Auto) Vancomycin Trough Salicylates Acetaminophen Plasma/Serum Alcohol Crossmatch 01/17/20 01/18/20 01/18/20 23:34 05:47 12:43 WBC RBC Hgb Hct MCH RDW Plt Count Lymph % (Auto) [place] % (Auto) [place] # Baso # Seg Neutrophils % Seg Neuts % (Manual) Lymphocytes % (Manual) Monocytes % (Manual) Seg Neutrophils # Seg Neutrophils # Man Lymphocytes # (Manual) Monocytes # (Manual) Eosinophils # (Manual) Basophils # (Manual) PT INR APTT ABG pH ABG pO2 ABG HCO3 ABG O2 Saturation ABG Base Excess ABG Hemoglobin Oxyhemoglobin Sodium Potassium Chloride Carbon Dioxide BUN Creatinine Glucose POC Glucose 160 H 130 H 124 H Lactic Acid Calcium Ionized Calcium Phosphorus Magnesium Total Bilirubin AST ALT Alkaline Phosphatase Ammonia Total Creatine Kinase CK-MB (CK-2) CK-MB (CK-2) Rel Index Total Protein Albumin Urine WBC (Auto) Vancomycin Trough Salicylates Acetaminophen Plasma/Serum Alcohol Crossmatch 01/18/20 01/19/20 01/19/20 18:26 00:14 06:24 WBC RBC Hgb Hct MCH RDW Plt Count Lymph % (Auto) [place] % (Auto) [place] # Baso # Seg Neutrophils % Seg Neuts % (Manual) Lymphocytes % (Manual) Monocytes % (Manual) Seg Neutrophils # Seg Neutrophils # Man Lymphocytes # (Manual) Monocytes # (Manual) Eosinophils # (Manual) Basophils # (Manual) PT INR APTT ABG pH ABG pO2 ABG HCO3 ABG O2 Saturation ABG Base Excess ABG Hemoglobin Oxyhemoglobin Sodium Potassium Chloride Carbon Dioxide BUN Creatinine Glucose POC Glucose 119 H 114 H 144 H Lactic Acid Calcium Ionized Calcium Phosphorus Magnesium Total Bilirubin AST ALT Alkaline Phosphatase Ammonia Total Creatine Kinase CK-MB (CK-2) CK-MB (CK-2) Rel Index Total Protein Albumin Urine WBC (Auto) Vancomycin Trough Salicylates Acetaminophen Plasma/Serum Alcohol Crossmatch 01/19/20 01/19/20 01/20/20 12:24 17:50 12:06 WBC RBC Hgb Hct MCH RDW Plt Count Lymph % (Auto) [place] % (Auto) [place] # Baso # Seg Neutrophils % Seg Neuts % (Manual) Lymphocytes % (Manual) Monocytes % (Manual) Seg Neutrophils # Seg Neutrophils # Man Lymphocytes # (Manual) Monocytes # (Manual) Eosinophils # (Manual) Basophils # (Manual) PT INR APTT ABG pH ABG pO2 ABG HCO3 ABG O2 Saturation ABG Base Excess ABG Hemoglobin Oxyhemoglobin Sodium Potassium Chloride Carbon Dioxide BUN Creatinine Glucose POC Glucose 132 H 144 H 135 H Lactic Acid Calcium Ionized Calcium Phosphorus Magnesium Total Bilirubin AST ALT Alkaline Phosphatase Ammonia Total Creatine Kinase CK-MB (CK-2) CK-MB (CK-2) Rel Index Total Protein Albumin Urine WBC (Auto) Vancomycin Trough Salicylates Acetaminophen Plasma/Serum Alcohol Crossmatch 01/21/20 01/21/20 01/21/20 05:46 13:02 23:49 WBC RBC Hgb Hct MCH RDW Plt Count Lymph % (Auto) [place] % (Auto) [place] # Baso # Seg Neutrophils % Seg Neuts % (Manual) Lymphocytes % (Manual) Monocytes % (Manual) Seg Neutrophils # Seg Neutrophils # Man Lymphocytes # (Manual) Monocytes # (Manual) Eosinophils # (Manual) Basophils # (Manual) PT INR APTT ABG pH ABG pO2 ABG HCO3 ABG O2 Saturation ABG Base Excess ABG Hemoglobin Oxyhemoglobin Sodium Potassium Chloride Carbon Dioxide BUN Creatinine Glucose POC Glucose 114 H 136 H 120 H Lactic Acid Calcium Ionized Calcium Phosphorus Magnesium Total Bilirubin AST ALT Alkaline Phosphatase Ammonia Total Creatine Kinase CK-MB (CK-2) CK-MB (CK-2) Rel Index Total Protein Albumin Urine WBC (Auto) Vancomycin Trough Salicylates Acetaminophen Plasma/Serum Alcohol Crossmatch 01/22/20 01/22/20 01/22/20 05:41 11:44 16:31 WBC RBC Hgb Hct MCH RDW Plt Count Lymph % (Auto) [place] % (Auto) [place] # Baso # Seg Neutrophils % Seg Neuts % (Manual) Lymphocytes % (Manual) Monocytes % (Manual) Seg Neutrophils # Seg Neutrophils # Man Lymphocytes # (Manual) Monocytes # (Manual) Eosinophils # (Manual) Basophils # (Manual) PT INR APTT ABG pH ABG pO2 ABG HCO3 ABG O2 Saturation ABG Base Excess ABG Hemoglobin Oxyhemoglobin Sodium Potassium Chloride Carbon Dioxide BUN Creatinine Glucose POC Glucose 124 H 173 H 111 H Lactic Acid Calcium Ionized Calcium Phosphorus Magnesium Total Bilirubin AST ALT Alkaline Phosphatase Ammonia Total Creatine Kinase CK-MB (CK-2) CK-MB (CK-2) Rel Index Total Protein Albumin Urine WBC (Auto) Vancomycin Trough Salicylates Acetaminophen Plasma/Serum Alcohol Crossmatch 01/22/20 01/23/20 01/23/20 23:25 05:15 12:15 WBC RBC Hgb Hct MCH RDW Plt Count Lymph % (Auto) [place] % (Auto) [place] # Baso # Seg Neutrophils % Seg Neuts % (Manual) Lymphocytes % (Manual) Monocytes % (Manual) Seg Neutrophils # Seg Neutrophils # Man Lymphocytes # (Manual) Monocytes # (Manual) Eosinophils # (Manual) Basophils # (Manual) PT INR APTT ABG pH ABG pO2 ABG HCO3 ABG O2 Saturation ABG Base Excess ABG Hemoglobin Oxyhemoglobin Sodium Potassium Chloride Carbon Dioxide BUN Creatinine Glucose POC Glucose 134 H 117 H 129 H Lactic Acid Calcium Ionized Calcium Phosphorus Magnesium Total Bilirubin AST ALT Alkaline Phosphatase Ammonia Total Creatine Kinase CK-MB (CK-2) CK-MB (CK-2) Rel Index Total Protein Albumin Urine WBC (Auto) Vancomycin Trough Salicylates Acetaminophen Plasma/Serum Alcohol Crossmatch 01/23/20 01/23/20 01/23/20 16:58 21:17 23:47 WBC RBC Hgb Hct MCH RDW Plt Count Lymph % (Auto) [place] % (Auto) [place] # Baso # Seg Neutrophils % Seg Neuts % (Manual) Lymphocytes % (Manual) Monocytes % (Manual) Seg Neutrophils # Seg Neutrophils # Man Lymphocytes # (Manual) Monocytes # (Manual) Eosinophils # (Manual) Basophils # (Manual) PT INR APTT ABG pH ABG pO2 ABG HCO3 ABG O2 Saturation ABG Base Excess ABG Hemoglobin Oxyhemoglobin Sodium Potassium Chloride Carbon Dioxide BUN Creatinine Glucose POC Glucose 156 H 185 H 156 H Lactic Acid Calcium Ionized Calcium Phosphorus Magnesium Total Bilirubin AST ALT Alkaline Phosphatase Ammonia Total Creatine Kinase CK-MB (CK-2) CK-MB (CK-2) Rel Index Total Protein Albumin Urine WBC (Auto) Vancomycin Trough Salicylates Acetaminophen Plasma/Serum Alcohol Crossmatch 01/24/20 01/24/20 01/24/20 04:47 04:47 05:59 WBC 17.8 H RBC 3.60 L Hgb Hct MCH RDW 16.2 H Plt Count 688 H Lymph % (Auto) 11.8 L [place] % (Auto) 7.5 H [place] # 1.3 H Baso # Seg Neutrophils % 79.9 H Seg Neuts % (Manual) Lymphocytes % (Manual) Monocytes % (Manual) Seg Neutrophils # 14.2 H Seg Neutrophils # Man Lymphocytes # (Manual) Monocytes # (Manual) Eosinophils # (Manual) Basophils # (Manual) PT INR APTT ABG pH ABG pO2 ABG HCO3 ABG O2 Saturation ABG Base Excess ABG Hemoglobin Oxyhemoglobin Sodium 131 L Potassium Chloride 91.2 L Carbon Dioxide BUN 22 H Creatinine 0.3 L Glucose 123 H POC Glucose 147 H Lactic Acid Calcium 10.9 H Ionized Calcium Phosphorus Magnesium Total Bilirubin AST ALT Alkaline Phosphatase Ammonia Total Creatine Kinase CK-MB (CK-2) CK-MB (CK-2) Rel Index Total Protein Albumin Urine WBC (Auto) Vancomycin Trough Salicylates Acetaminophen Plasma/Serum Alcohol Crossmatch 01/24/20 01/24/20 01/25/20 11:47 16:45 00:18 WBC RBC Hgb Hct MCH RDW Plt Count Lymph % (Auto) [place] % (Auto) [place] # Baso # Seg Neutrophils % Seg Neuts % (Manual) Lymphocytes % (Manual) Monocytes % (Manual) Seg Neutrophils # Seg Neutrophils # Man Lymphocytes # (Manual) Monocytes # (Manual) Eosinophils # (Manual) Basophils # (Manual) PT INR APTT ABG pH ABG pO2 ABG HCO3 ABG O2 Saturation ABG Base Excess ABG Hemoglobin Oxyhemoglobin Sodium Potassium Chloride Carbon Dioxide BUN Creatinine Glucose POC Glucose 114 H 108 H 119 H Lactic Acid Calcium Ionized Calcium Phosphorus Magnesium Total Bilirubin AST ALT Alkaline Phosphatase Ammonia Total Creatine Kinase CK-MB (CK-2) CK-MB (CK-2) Rel Index Total Protein Albumin Urine WBC (Auto) Vancomycin Trough Salicylates Acetaminophen Plasma/Serum Alcohol Crossmatch 01/25/20 01/25/20 01/25/20 07:18 11:58 16:56 WBC RBC Hgb Hct MCH RDW Plt Count Lymph % (Auto) [place] % (Auto) [place] # Baso # Seg Neutrophils % Seg Neuts % (Manual) Lymphocytes % (Manual) Monocytes % (Manual) Seg Neutrophils # Seg Neutrophils # Man Lymphocytes # (Manual) Monocytes # (Manual) Eosinophils # (Manual) Basophils # (Manual) PT INR APTT ABG pH ABG pO2 ABG HCO3 ABG O2 Saturation ABG Base Excess ABG Hemoglobin Oxyhemoglobin Sodium Potassium Chloride Carbon Dioxide BUN Creatinine Glucose POC Glucose 136 H 136 H 147 H Lactic Acid Calcium Ionized Calcium Phosphorus Magnesium Total Bilirubin AST ALT Alkaline Phosphatase Ammonia Total Creatine Kinase CK-MB (CK-2) CK-MB (CK-2) Rel Index Total Protein Albumin Urine WBC (Auto) Vancomycin Trough Salicylates Acetaminophen Plasma/Serum Alcohol Crossmatch 01/26/20 01/26/20 01/26/20 00:29 05:59 05:59 WBC 12.8 H RBC Hgb Hct MCH RDW 16.4 H Plt Count 743 H Lymph % (Auto) [place] % (Auto) [place] # 0.9 H Baso # Seg Neutrophils % 76.2 H Seg Neuts % (Manual) Lymphocytes % (Manual) Monocytes % (Manual) Seg Neutrophils # 9.8 H Seg Neutrophils # Man Lymphocytes # (Manual) Monocytes # (Manual) Eosinophils # (Manual) Basophils # (Manual) PT INR APTT ABG pH ABG pO2 ABG HCO3 ABG O2 Saturation ABG Base Excess ABG Hemoglobin Oxyhemoglobin Sodium 132 L Potassium Chloride 90.9 L Carbon Dioxide BUN 23 H Creatinine 0.4 L Glucose 122 H POC Glucose 107 H Lactic Acid Calcium 11.0 H Ionized Calcium Phosphorus Magnesium Total Bilirubin AST ALT Alkaline Phosphatase Ammonia Total Creatine Kinase CK-MB (CK-2) CK-MB (CK-2) Rel Index Total Protein Albumin Urine WBC (Auto) Vancomycin Trough Salicylates Acetaminophen Plasma/Serum Alcohol Crossmatch 01/26/20 01/26/20 01/26/20 06:27 12:06 16:49 WBC RBC Hgb Hct MCH RDW Plt Count Lymph % (Auto) [place] % (Auto) [place] # Baso # Seg Neutrophils % Seg Neuts % (Manual) Lymphocytes % (Manual) Monocytes % (Manual) Seg Neutrophils # Seg Neutrophils # Man Lymphocytes # (Manual) Monocytes # (Manual) Eosinophils # (Manual) Basophils # (Manual) PT INR APTT ABG pH ABG pO2 ABG HCO3 ABG O2 Saturation ABG Base Excess ABG Hemoglobin Oxyhemoglobin Sodium Potassium Chloride Carbon Dioxide BUN Creatinine Glucose POC Glucose 132 H 132 H 110 H Lactic Acid Calcium Ionized Calcium Phosphorus Magnesium Total Bilirubin AST ALT Alkaline Phosphatase Ammonia Total Creatine Kinase CK-MB (CK-2) CK-MB (CK-2) Rel Index Total Protein Albumin Urine WBC (Auto) Vancomycin Trough Salicylates Acetaminophen Plasma/Serum Alcohol Crossmatch 01/27/20 01/27/20 01/27/20 00:08 11:49 16:24 WBC RBC Hgb Hct MCH RDW Plt Count Lymph % (Auto) [place] % (Auto) [place] # Baso # Seg Neutrophils % Seg Neuts % (Manual) Lymphocytes % (Manual) Monocytes % (Manual) Seg Neutrophils # Seg Neutrophils # Man Lymphocytes # (Manual) Monocytes # (Manual) Eosinophils # (Manual) Basophils # (Manual) PT INR APTT ABG pH ABG pO2 ABG HCO3 ABG O2 Saturation ABG Base Excess ABG Hemoglobin Oxyhemoglobin Sodium Potassium Chloride Carbon Dioxide BUN Creatinine Glucose POC Glucose 107 H 119 H 129 H Lactic Acid Calcium Ionized Calcium Phosphorus Magnesium Total Bilirubin AST ALT Alkaline Phosphatase Ammonia Total Creatine Kinase CK-MB (CK-2) CK-MB (CK-2) Rel Index Total Protein Albumin Urine WBC (Auto) Vancomycin Trough Salicylates Acetaminophen Plasma/Serum Alcohol Crossmatch 01/27/20 01/28/20 01/28/20 18:28 01:00 06:22 WBC RBC Hgb Hct MCH RDW Plt Count Lymph % (Auto) [place] % (Auto) [place] # Baso # Seg Neutrophils % Seg Neuts % (Manual) Lymphocytes % (Manual) Monocytes % (Manual) Seg Neutrophils # Seg Neutrophils # Man Lymphocytes # (Manual) Monocytes # (Manual) Eosinophils # (Manual) Basophils # (Manual) PT INR APTT ABG pH ABG pO2 ABG HCO3 ABG O2 Saturation ABG Base Excess ABG Hemoglobin Oxyhemoglobin Sodium Potassium Chloride Carbon Dioxide BUN Creatinine Glucose POC Glucose 126 H 121 H 114 H Lactic Acid Calcium Ionized Calcium Phosphorus Magnesium Total Bilirubin AST ALT Alkaline Phosphatase Ammonia Total Creatine Kinase CK-MB (CK-2) CK-MB (CK-2) Rel Index Total Protein Albumin Urine WBC (Auto) Vancomycin Trough Salicylates Acetaminophen Plasma/Serum Alcohol Crossmatch 01/28/20 01/28/20 01/29/20 11:47 18:00 00:05 WBC RBC Hgb Hct MCH RDW Plt Count Lymph % (Auto) [place] % (Auto) [place] # Baso # Seg Neutrophils % Seg Neuts % (Manual) Lymphocytes % (Manual) Monocytes % (Manual) Seg Neutrophils # Seg Neutrophils # Man Lymphocytes # (Manual) Monocytes # (Manual) Eosinophils # (Manual) Basophils # (Manual) PT INR APTT ABG pH ABG pO2 ABG HCO3 ABG O2 Saturation ABG Base Excess ABG Hemoglobin Oxyhemoglobin Sodium Potassium Chloride Carbon Dioxide BUN Creatinine Glucose POC Glucose 106 H 117 H 127 H Lactic Acid Calcium Ionized Calcium Phosphorus Magnesium Total Bilirubin AST ALT Alkaline Phosphatase Ammonia Total Creatine Kinase CK-MB (CK-2) CK-MB (CK-2) Rel Index Total Protein Albumin Urine WBC (Auto) Vancomycin Trough Salicylates Acetaminophen Plasma/Serum Alcohol Crossmatch 01/29/20 01/29/20 01/29/20 06:04 11:40 16:38 WBC RBC Hgb Hct MCH RDW Plt Count Lymph % (Auto) [place] % (Auto) [place] # Baso # Seg Neutrophils % Seg Neuts % (Manual) Lymphocytes % (Manual) Monocytes % (Manual) Seg Neutrophils # Seg Neutrophils # Man Lymphocytes # (Manual) Monocytes # (Manual) Eosinophils # (Manual) Basophils # (Manual) PT INR APTT ABG pH ABG pO2 ABG HCO3 ABG O2 Saturation ABG Base Excess ABG Hemoglobin Oxyhemoglobin Sodium Potassium Chloride Carbon Dioxide BUN Creatinine Glucose POC Glucose 147 H 139 H 143 H Lactic Acid Calcium Ionized Calcium Phosphorus Magnesium Total Bilirubin AST ALT Alkaline Phosphatase Ammonia Total Creatine Kinase CK-MB (CK-2) CK-MB (CK-2) Rel Index Total Protein Albumin Urine WBC (Auto) Vancomycin Trough Salicylates Acetaminophen Plasma/Serum Alcohol Crossmatch 01/29/20 01/30/20 01/30/20 23:46 06:43 12:07 WBC RBC Hgb Hct MCH RDW Plt Count Lymph % (Auto) [place] % (Auto) [place] # Baso # Seg Neutrophils % Seg Neuts % (Manual) Lymphocytes % (Manual) Monocytes % (Manual) Seg Neutrophils # Seg Neutrophils # Man Lymphocytes # (Manual) Monocytes # (Manual) Eosinophils # (Manual) Basophils # (Manual) PT INR APTT ABG pH ABG pO2 ABG HCO3 ABG O2 Saturation ABG Base Excess ABG Hemoglobin Oxyhemoglobin Sodium Potassium Chloride Carbon Dioxide BUN Creatinine Glucose POC Glucose 122 H 122 H 134 H Lactic Acid Calcium Ionized Calcium Phosphorus Magnesium Total Bilirubin AST ALT Alkaline Phosphatase Ammonia Total Creatine Kinase CK-MB (CK-2) CK-MB (CK-2) Rel Index Total Protein Albumin Urine WBC (Auto) Vancomycin Trough Salicylates Acetaminophen Plasma/Serum Alcohol Crossmatch 01/30/20 01/31/20 01/31/20 17:59 00:52 05:54 WBC RBC Hgb Hct MCH RDW Plt Count Lymph % (Auto) [place] % (Auto) [place] # Baso # Seg Neutrophils % Seg Neuts % (Manual) Lymphocytes % (Manual) Monocytes % (Manual) Seg Neutrophils # Seg Neutrophils # Man Lymphocytes # (Manual) Monocytes # (Manual) Eosinophils # (Manual) Basophils # (Manual) PT INR APTT ABG pH ABG pO2 ABG HCO3 ABG O2 Saturation ABG Base Excess ABG Hemoglobin Oxyhemoglobin Sodium Potassium Chloride Carbon Dioxide BUN Creatinine Glucose POC Glucose 116 H 127 H 127 H Lactic Acid Calcium Ionized Calcium Phosphorus Magnesium Total Bilirubin AST ALT Alkaline Phosphatase Ammonia Total Creatine Kinase CK-MB (CK-2) CK-MB (CK-2) Rel Index Total Protein Albumin Urine WBC (Auto) Vancomycin Trough Salicylates Acetaminophen Plasma/Serum Alcohol Crossmatch 01/31/20 02/01/20 02/01/20 12:20 00:48 12:21 WBC RBC Hgb Hct MCH RDW Plt Count Lymph % (Auto) [place] % (Auto) [place] # Baso # Seg Neutrophils % Seg Neuts % (Manual) Lymphocytes % (Manual) Monocytes % (Manual) Seg Neutrophils # Seg Neutrophils # Man Lymphocytes # (Manual) Monocytes # (Manual) Eosinophils # (Manual) Basophils # (Manual) PT INR APTT ABG pH ABG pO2 ABG HCO3 ABG O2 Saturation ABG Base Excess ABG Hemoglobin Oxyhemoglobin Sodium Potassium Chloride Carbon Dioxide BUN Creatinine Glucose POC Glucose 126 H 154 H 123 H Lactic Acid Calcium Ionized Calcium Phosphorus Magnesium Total Bilirubin AST ALT Alkaline Phosphatase Ammonia Total Creatine Kinase CK-MB (CK-2) CK-MB (CK-2) Rel Index Total Protein Albumin Urine WBC (Auto) Vancomycin Trough Salicylates Acetaminophen Plasma/Serum Alcohol Crossmatch 02/01/20 02/02/20 02/02/20 23:58 06:08 11:50 WBC RBC Hgb Hct MCH RDW Plt Count Lymph % (Auto) [place] % (Auto) [place] # Baso # Seg Neutrophils % Seg Neuts % (Manual) Lymphocytes % (Manual) Monocytes % (Manual) Seg Neutrophils # Seg Neutrophils # Man Lymphocytes # (Manual) Monocytes # (Manual) Eosinophils # (Manual) Basophils # (Manual) PT INR APTT ABG pH ABG pO2 ABG HCO3 ABG O2 Saturation ABG Base Excess ABG Hemoglobin Oxyhemoglobin Sodium Potassium Chloride Carbon Dioxide BUN Creatinine Glucose POC Glucose 125 H 144 H 131 H Lactic Acid Calcium Ionized Calcium Phosphorus Magnesium Total Bilirubin AST ALT Alkaline Phosphatase Ammonia Total Creatine Kinase CK-MB (CK-2) CK-MB (CK-2) Rel Index Total Protein Albumin Urine WBC (Auto) Vancomycin Trough Salicylates Acetaminophen Plasma/Serum Alcohol Crossmatch 02/02/20 02/03/20 02/03/20 17:53 00:14 05:47 WBC RBC Hgb Hct MCH RDW Plt Count Lymph % (Auto) [place] % (Auto) [place] # Baso # Seg Neutrophils % Seg Neuts % (Manual) Lymphocytes % (Manual) Monocytes % (Manual) Seg Neutrophils # Seg Neutrophils # Man Lymphocytes # (Manual) Monocytes # (Manual) Eosinophils # (Manual) Basophils # (Manual) PT INR APTT ABG pH ABG pO2 ABG HCO3 ABG O2 Saturation ABG Base Excess ABG Hemoglobin Oxyhemoglobin Sodium Potassium Chloride Carbon Dioxide BUN Creatinine Glucose POC Glucose 108 H 122 H 118 H Lactic Acid Calcium Ionized Calcium Phosphorus Magnesium Total Bilirubin AST ALT Alkaline Phosphatase Ammonia Total Creatine Kinase CK-MB (CK-2) CK-MB (CK-2) Rel Index Total Protein Albumin Urine WBC (Auto) Vancomycin Trough Salicylates Acetaminophen Plasma/Serum Alcohol Crossmatch 02/03/20 02/03/20 02/03/20 05:59 05:59 11:49 WBC RBC 3.48 L Hgb Hct 29.9 L MCH RDW 16.2 H Plt Count 707 H Lymph % (Auto) [place] % (Auto) 9.3 H [place] # 0.9 H Baso # Seg Neutrophils % Seg Neuts % (Manual) Lymphocytes % (Manual) Monocytes % (Manual) Seg Neutrophils # Seg Neutrophils # Man Lymphocytes # (Manual) Monocytes # (Manual) Eosinophils # (Manual) Basophils # (Manual) PT INR APTT ABG pH ABG pO2 ABG HCO3 ABG O2 Saturation ABG Base Excess ABG Hemoglobin Oxyhemoglobin Sodium 136 L Potassium Chloride 93.4 L Carbon Dioxide BUN 20 H Creatinine 0.5 L Glucose 101 H POC Glucose 133 H Lactic Acid Calcium 10.8 H Ionized Calcium Phosphorus Magnesium Total Bilirubin AST ALT Alkaline Phosphatase Ammonia Total Creatine Kinase CK-MB (CK-2) CK-MB (CK-2) Rel Index Total Protein Albumin Urine WBC (Auto) Vancomycin Trough Salicylates Acetaminophen Plasma/Serum Alcohol Crossmatch 02/03/20 02/04/20 02/04/20 23:19 05:37 23:56 WBC RBC Hgb Hct MCH RDW Plt Count Lymph % (Auto) [place] % (Auto) [place] # Baso # Seg Neutrophils % Seg Neuts % (Manual) Lymphocytes % (Manual) Monocytes % (Manual) Seg Neutrophils # Seg Neutrophils # Man Lymphocytes # (Manual) Monocytes # (Manual) Eosinophils # (Manual) Basophils # (Manual) PT INR APTT ABG pH ABG pO2 ABG HCO3 ABG O2 Saturation ABG Base Excess ABG Hemoglobin Oxyhemoglobin Sodium Potassium Chloride Carbon Dioxide BUN Creatinine Glucose POC Glucose 135 H 108 H 158 H Lactic Acid Calcium Ionized Calcium Phosphorus Magnesium Total Bilirubin AST ALT Alkaline Phosphatase Ammonia Total Creatine Kinase CK-MB (CK-2) CK-MB (CK-2) Rel Index Total Protein Albumin Urine WBC (Auto) Vancomycin Trough Salicylates Acetaminophen Plasma/Serum Alcohol Crossmatch 02/05/20 02/05/20 02/06/20 05:33 23:24 05:50 WBC RBC Hgb Hct MCH RDW Plt Count Lymph % (Auto) [place] % (Auto) [place] # Baso # Seg Neutrophils % Seg Neuts % (Manual) Lymphocytes % (Manual) Monocytes % (Manual) Seg Neutrophils # Seg Neutrophils # Man Lymphocytes # (Manual) Monocytes # (Manual) Eosinophils # (Manual) Basophils # (Manual) PT INR APTT ABG pH ABG pO2 ABG HCO3 ABG O2 Saturation ABG Base Excess ABG Hemoglobin Oxyhemoglobin Sodium Potassium Chloride Carbon Dioxide BUN Creatinine Glucose POC Glucose 152 H 158 H 110 H Lactic Acid Calcium Ionized Calcium Phosphorus Magnesium Total Bilirubin AST ALT Alkaline Phosphatase Ammonia Total Creatine Kinase CK-MB (CK-2) CK-MB (CK-2) Rel Index Total Protein Albumin Urine WBC (Auto) Vancomycin Trough Salicylates Acetaminophen Plasma/Serum Alcohol Crossmatch 02/06/20 02/07/20 02/07/20 16:03 00:13 05:27 WBC RBC Hgb Hct MCH RDW Plt Count Lymph % (Auto) [place] % (Auto) [place] # Baso # Seg Neutrophils % Seg Neuts % (Manual) Lymphocytes % (Manual) Monocytes % (Manual) Seg Neutrophils # Seg Neutrophils # Man Lymphocytes # (Manual) Monocytes # (Manual) Eosinophils # (Manual) Basophils # (Manual) PT INR APTT ABG pH ABG pO2 ABG HCO3 ABG O2 Saturation ABG Base Excess ABG Hemoglobin Oxyhemoglobin Sodium Potassium Chloride Carbon Dioxide BUN Creatinine Glucose POC Glucose 130 H 115 H 115 H Lactic Acid Calcium Ionized Calcium Phosphorus Magnesium Total Bilirubin AST ALT Alkaline Phosphatase Ammonia Total Creatine Kinase CK-MB (CK-2) CK-MB (CK-2) Rel Index Total Protein Albumin Urine WBC (Auto) Vancomycin Trough Salicylates Acetaminophen Plasma/Serum Alcohol Crossmatch 02/07/20 02/07/20 02/08/20 11:42 17:23 00:37 WBC RBC Hgb Hct MCH RDW Plt Count Lymph % (Auto) [place] % (Auto) [place] # Baso # Seg Neutrophils % Seg Neuts % (Manual) Lymphocytes % (Manual) Monocytes % (Manual) Seg Neutrophils # Seg Neutrophils # Man Lymphocytes # (Manual) Monocytes # (Manual) Eosinophils # (Manual) Basophils # (Manual) PT INR APTT ABG pH ABG pO2 ABG HCO3 ABG O2 Saturation ABG Base Excess ABG Hemoglobin Oxyhemoglobin Sodium Potassium Chloride Carbon Dioxide BUN Creatinine Glucose POC Glucose 113 H 114 H 136 H Lactic Acid Calcium Ionized Calcium Phosphorus Magnesium Total Bilirubin AST ALT Alkaline Phosphatase Ammonia Total Creatine Kinase CK-MB (CK-2) CK-MB (CK-2) Rel Index Total Protein Albumin Urine WBC (Auto) Vancomycin Trough Salicylates Acetaminophen Plasma/Serum Alcohol Crossmatch 02/08/20 02/08/20 02/08/20 08:52 11:42 17:02 WBC RBC Hgb Hct MCH RDW Plt Count Lymph % (Auto) [place] % (Auto) [place] # Baso # Seg Neutrophils % Seg Neuts % (Manual) Lymphocytes % (Manual) Monocytes % (Manual) Seg Neutrophils # Seg Neutrophils # Man Lymphocytes # (Manual) Monocytes # (Manual) Eosinophils # (Manual) Basophils # (Manual) PT INR APTT ABG pH ABG pO2 ABG HCO3 ABG O2 Saturation ABG Base Excess ABG Hemoglobin Oxyhemoglobin Sodium 136 L Potassium Chloride 95.7 L Carbon Dioxide BUN 21 H Creatinine 0.4 L Glucose POC Glucose 128 H 145 H Lactic Acid Calcium 10.4 H Ionized Calcium Phosphorus Magnesium Total Bilirubin AST ALT Alkaline Phosphatase Ammonia Total Creatine Kinase CK-MB (CK-2) CK-MB (CK-2) Rel Index Total Protein Albumin Urine WBC (Auto) Vancomycin Trough Salicylates Acetaminophen Plasma/Serum Alcohol Crossmatch 02/09/20 02/09/20 02/09/20 01:05 11:52 16:19 WBC RBC Hgb Hct MCH RDW Plt Count Lymph % (Auto) [place] % (Auto) [place] # Baso # Seg Neutrophils % Seg Neuts % (Manual) Lymphocytes % (Manual) Monocytes % (Manual) Seg Neutrophils # Seg Neutrophils # Man Lymphocytes # (Manual) Monocytes # (Manual) Eosinophils # (Manual) Basophils # (Manual) PT INR APTT ABG pH ABG pO2 ABG HCO3 ABG O2 Saturation ABG Base Excess ABG Hemoglobin Oxyhemoglobin Sodium Potassium Chloride Carbon Dioxide BUN Creatinine Glucose POC Glucose 117 H 141 H 113 H Lactic Acid Calcium Ionized Calcium Phosphorus Magnesium Total Bilirubin AST ALT Alkaline Phosphatase Ammonia Total Creatine Kinase CK-MB (CK-2) CK-MB (CK-2) Rel Index Total Protein Albumin Urine WBC (Auto) Vancomycin Trough Salicylates Acetaminophen Plasma/Serum Alcohol Crossmatch 02/10/20 02/10/20 02/10/20 05:25 12:50 17:08 WBC RBC Hgb Hct MCH RDW Plt Count Lymph % (Auto) [place] % (Auto) [place] # Baso # Seg Neutrophils % Seg Neuts % (Manual) Lymphocytes % (Manual) Monocytes % (Manual) Seg Neutrophils # Seg Neutrophils # Man Lymphocytes # (Manual) Monocytes # (Manual) Eosinophils # (Manual) Basophils # (Manual) PT INR APTT ABG pH ABG pO2 ABG HCO3 ABG O2 Saturation ABG Base Excess ABG Hemoglobin Oxyhemoglobin Sodium Potassium Chloride Carbon Dioxide BUN Creatinine Glucose POC Glucose 136 H 127 H 111 H Lactic Acid Calcium Ionized Calcium Phosphorus Magnesium Total Bilirubin AST ALT Alkaline Phosphatase Ammonia Total Creatine Kinase CK-MB (CK-2) CK-MB (CK-2) Rel Index Total Protein Albumin Urine WBC (Auto) Vancomycin Trough Salicylates Acetaminophen Plasma/Serum Alcohol Crossmatch 02/10/20 02/11/20 02/11/20 23:55 06:11 12:07 WBC RBC Hgb Hct MCH RDW Plt Count Lymph % (Auto) [place] % (Auto) [place] # Baso # Seg Neutrophils % Seg Neuts % (Manual) Lymphocytes % (Manual) Monocytes % (Manual) Seg Neutrophils # Seg Neutrophils # Man Lymphocytes # (Manual) Monocytes # (Manual) Eosinophils # (Manual) Basophils # (Manual) PT INR APTT ABG pH ABG pO2 ABG HCO3 ABG O2 Saturation ABG Base Excess ABG Hemoglobin Oxyhemoglobin Sodium Potassium Chloride Carbon Dioxide BUN Creatinine Glucose POC Glucose 129 H 128 H 141 H Lactic Acid Calcium Ionized Calcium Phosphorus Magnesium Total Bilirubin AST ALT Alkaline Phosphatase Ammonia Total Creatine Kinase CK-MB (CK-2) CK-MB (CK-2) Rel Index Total Protein Albumin Urine WBC (Auto) Vancomycin Trough Salicylates Acetaminophen Plasma/Serum Alcohol Crossmatch 02/11/20 02/12/20 02/13/20 18:22 02:39 06:45 WBC RBC Hgb Hct MCH RDW Plt Count Lymph % (Auto) [place] % (Auto) [place] # Baso # Seg Neutrophils % Seg Neuts % (Manual) Lymphocytes % (Manual) Monocytes % (Manual) Seg Neutrophils # Seg Neutrophils # Man Lymphocytes # (Manual) Monocytes # (Manual) Eosinophils # (Manual) Basophils # (Manual) PT INR APTT ABG pH ABG pO2 ABG HCO3 ABG O2 Saturation ABG Base Excess ABG Hemoglobin Oxyhemoglobin Sodium Potassium Chloride Carbon Dioxide BUN Creatinine Glucose POC Glucose 118 H 107 H 124 H Lactic Acid Calcium Ionized Calcium Phosphorus Magnesium Total Bilirubin AST ALT Alkaline Phosphatase Ammonia Total Creatine Kinase CK-MB (CK-2) CK-MB (CK-2) Rel Index Total Protein Albumin Urine WBC (Auto) Vancomycin Trough Salicylates Acetaminophen Plasma/Serum Alcohol Crossmatch 02/13/20 02/13/20 02/14/20 12:26 18:19 00:21 WBC RBC Hgb Hct MCH RDW Plt Count Lymph % (Auto) [place] % (Auto) [place] # Baso # Seg Neutrophils % Seg Neuts % (Manual) Lymphocytes % (Manual) Monocytes % (Manual) Seg Neutrophils # Seg Neutrophils # Man Lymphocytes # (Manual) Monocytes # (Manual) Eosinophils # (Manual) Basophils # (Manual) PT INR APTT ABG pH ABG pO2 ABG HCO3 ABG O2 Saturation ABG Base Excess ABG Hemoglobin Oxyhemoglobin Sodium Potassium Chloride Carbon Dioxide BUN Creatinine Glucose POC Glucose 124 H 118 H 130 H Lactic Acid Calcium Ionized Calcium Phosphorus Magnesium Total Bilirubin AST ALT Alkaline Phosphatase Ammonia Total Creatine Kinase CK-MB (CK-2) CK-MB (CK-2) Rel Index Total Protein Albumin Urine WBC (Auto) Vancomycin Trough Salicylates Acetaminophen Plasma/Serum Alcohol Crossmatch 02/14/20 02/14/20 02/16/20 11:19 16:16 00:58 WBC RBC Hgb Hct MCH RDW Plt Count Lymph % (Auto) [place] % (Auto) [place] # Baso # Seg Neutrophils % Seg Neuts % (Manual) Lymphocytes % (Manual) Monocytes % (Manual) Seg Neutrophils # Seg Neutrophils # Man Lymphocytes # (Manual) Monocytes # (Manual) Eosinophils # (Manual) Basophils # (Manual) PT INR APTT ABG pH ABG pO2 ABG HCO3 ABG O2 Saturation ABG Base Excess ABG Hemoglobin Oxyhemoglobin Sodium Potassium Chloride Carbon Dioxide BUN Creatinine Glucose POC Glucose 135 H 119 H 121 H Lactic Acid Calcium Ionized Calcium Phosphorus Magnesium Total Bilirubin AST ALT Alkaline Phosphatase Ammonia Total Creatine Kinase CK-MB (CK-2) CK-MB (CK-2) Rel Index Total Protein Albumin Urine WBC (Auto) Vancomycin Trough Salicylates Acetaminophen Plasma/Serum Alcohol Crossmatch 02/16/20 02/16/20 02/16/20 12:12 18:22 23:51 WBC RBC Hgb Hct MCH RDW Plt Count Lymph % (Auto) [place] % (Auto) [place] # Baso # Seg Neutrophils % Seg Neuts % (Manual) Lymphocytes % (Manual) Monocytes % (Manual) Seg Neutrophils # Seg Neutrophils # Man Lymphocytes # (Manual) Monocytes # (Manual) Eosinophils # (Manual) Basophils # (Manual) PT INR APTT ABG pH ABG pO2 ABG HCO3 ABG O2 Saturation ABG Base Excess ABG Hemoglobin Oxyhemoglobin Sodium Potassium Chloride Carbon Dioxide BUN Creatinine Glucose POC Glucose 107 H 106 H 128 H Lactic Acid Calcium Ionized Calcium Phosphorus Magnesium Total Bilirubin AST ALT Alkaline Phosphatase Ammonia Total Creatine Kinase CK-MB (CK-2) CK-MB (CK-2) Rel Index Total Protein Albumin Urine WBC (Auto) Vancomycin Trough Salicylates Acetaminophen Plasma/Serum Alcohol Crossmatch 02/17/20 02/17/20 02/17/20 05:50 07:57 07:57 WBC 12.6 H RBC 3.52 L Hgb Hct MCH RDW 15.3 H Plt Count 643 H Lymph % (Auto) [place] % (Auto) 8.0 H [place] # 1.0 H Baso # Seg Neutrophils % Seg Neuts % (Manual) Lymphocytes % (Manual) Monocytes % (Manual) Seg Neutrophils # 8.5 H Seg Neutrophils # Man Lymphocytes # (Manual) Monocytes # (Manual) Eosinophils # (Manual) Basophils # (Manual) PT INR APTT ABG pH ABG pO2 ABG HCO3 ABG O2 Saturation ABG Base Excess ABG Hemoglobin Oxyhemoglobin Sodium Potassium Chloride 96.9 L Carbon Dioxide BUN 21 H Creatinine 0.4 L Glucose 113 H POC Glucose 116 H Lactic Acid Calcium 10.5 H Ionized Calcium Phosphorus Magnesium Total Bilirubin AST ALT Alkaline Phosphatase Ammonia Total Creatine Kinase CK-MB (CK-2) CK-MB (CK-2) Rel Index Total Protein Albumin Urine WBC (Auto) Vancomycin Trough Salicylates Acetaminophen Plasma/Serum Alcohol Crossmatch 02/17/20 02/17/20 02/18/20 12:05 18:16 00:13 WBC RBC Hgb Hct MCH RDW Plt Count Lymph % (Auto) [place] % (Auto) [place] # Baso # Seg Neutrophils % Seg Neuts % (Manual) Lymphocytes % (Manual) Monocytes % (Manual) Seg Neutrophils # Seg Neutrophils # Man Lymphocytes # (Manual) Monocytes # (Manual) Eosinophils # (Manual) Basophils # (Manual) PT INR APTT ABG pH ABG pO2 ABG HCO3 ABG O2 Saturation ABG Base Excess ABG Hemoglobin Oxyhemoglobin Sodium Potassium Chloride Carbon Dioxide BUN Creatinine Glucose POC Glucose 139 H 127 H 144 H Lactic Acid Calcium Ionized Calcium Phosphorus Magnesium Total Bilirubin AST ALT Alkaline Phosphatase Ammonia Total Creatine Kinase CK-MB (CK-2) CK-MB (CK-2) Rel Index Total Protein Albumin Urine WBC (Auto) Vancomycin Trough Salicylates Acetaminophen Plasma/Serum Alcohol Crossmatch 02/18/20 02/18/20 02/19/20 17:41 23:28 05:17 WBC RBC Hgb Hct MCH RDW Plt Count Lymph % (Auto) [place] % (Auto) [place] # Baso # Seg Neutrophils % Seg Neuts % (Manual) Lymphocytes % (Manual) Monocytes % (Manual) Seg Neutrophils # Seg Neutrophils # Man Lymphocytes # (Manual) Monocytes # (Manual) Eosinophils # (Manual) Basophils # (Manual) PT INR APTT ABG pH ABG pO2 ABG HCO3 ABG O2 Saturation ABG Base Excess ABG Hemoglobin Oxyhemoglobin Sodium Potassium Chloride Carbon Dioxide BUN Creatinine Glucose POC Glucose 118 H 166 H 116 H Lactic Acid Calcium Ionized Calcium Phosphorus Magnesium Total Bilirubin AST ALT Alkaline Phosphatase Ammonia Total Creatine Kinase CK-MB (CK-2) CK-MB (CK-2) Rel Index Total Protein Albumin Urine WBC (Auto) Vancomycin Trough Salicylates Acetaminophen Plasma/Serum Alcohol Crossmatch 02/19/20 02/19/20 02/20/20 12:33 17:02 00:12 WBC RBC Hgb Hct MCH RDW Plt Count Lymph % (Auto) [place] % (Auto) [place] # Baso # Seg Neutrophils % Seg Neuts % (Manual) Lymphocytes % (Manual) Monocytes % (Manual) Seg Neutrophils # Seg Neutrophils # Man Lymphocytes # (Manual) Monocytes # (Manual) Eosinophils # (Manual) Basophils # (Manual) PT INR APTT ABG pH ABG pO2 ABG HCO3 ABG O2 Saturation ABG Base Excess ABG Hemoglobin Oxyhemoglobin Sodium Potassium Chloride Carbon Dioxide BUN Creatinine Glucose POC Glucose 115 H 108 H 153 H Lactic Acid Calcium Ionized Calcium Phosphorus Magnesium Total Bilirubin AST ALT Alkaline Phosphatase Ammonia Total Creatine Kinase CK-MB (CK-2) CK-MB (CK-2) Rel Index Total Protein Albumin Urine WBC (Auto) Vancomycin Trough Salicylates Acetaminophen Plasma/Serum Alcohol Crossmatch 02/20/20 02/20/20 02/21/20 12:00 23:13 05:07 WBC RBC Hgb Hct MCH RDW Plt Count Lymph % (Auto) [place] % (Auto) [place] # Baso # Seg Neutrophils % Seg Neuts % (Manual) Lymphocytes % (Manual) Monocytes % (Manual) Seg Neutrophils # Seg Neutrophils # Man Lymphocytes # (Manual) Monocytes # (Manual) Eosinophils # (Manual) Basophils # (Manual) PT INR APTT ABG pH ABG pO2 ABG HCO3 ABG O2 Saturation ABG Base Excess ABG Hemoglobin Oxyhemoglobin Sodium Potassium Chloride Carbon Dioxide BUN Creatinine Glucose POC Glucose 171 H 129 H 116 H Lactic Acid Calcium Ionized Calcium Phosphorus Magnesium Total Bilirubin AST ALT Alkaline Phosphatase Ammonia Total Creatine Kinase CK-MB (CK-2) CK-MB (CK-2) Rel Index Total Protein Albumin Urine WBC (Auto) Vancomycin Trough Salicylates Acetaminophen Plasma/Serum Alcohol Crossmatch 02/21/20 02/22/20 02/22/20 12:15 00:42 06:30 WBC RBC Hgb Hct MCH RDW Plt Count Lymph % (Auto) [place] % (Auto) [place] # Baso # Seg Neutrophils % Seg Neuts % (Manual) Lymphocytes % (Manual) Monocytes % (Manual) Seg Neutrophils # Seg Neutrophils # Man Lymphocytes # (Manual) Monocytes # (Manual) Eosinophils # (Manual) Basophils # (Manual) PT INR APTT ABG pH ABG pO2 ABG HCO3 ABG O2 Saturation ABG Base Excess ABG Hemoglobin Oxyhemoglobin Sodium Potassium Chloride Carbon Dioxide BUN Creatinine Glucose POC Glucose 124 H 142 H 117 H Lactic Acid Calcium Ionized Calcium Phosphorus Magnesium Total Bilirubin AST ALT Alkaline Phosphatase Ammonia Total Creatine Kinase CK-MB (CK-2) CK-MB (CK-2) Rel Index Total Protein Albumin Urine WBC (Auto) Vancomycin Trough Salicylates Acetaminophen Plasma/Serum Alcohol Crossmatch 02/22/20 02/22/20 02/23/20 12:20 17:55 12:46 WBC RBC Hgb Hct MCH RDW Plt Count Lymph % (Auto) [place] % (Auto) [place] # Baso # Seg Neutrophils % Seg Neuts % (Manual) Lymphocytes % (Manual) Monocytes % (Manual) Seg Neutrophils # Seg Neutrophils # Man Lymphocytes # (Manual) Monocytes # (Manual) Eosinophils # (Manual) Basophils # (Manual) PT INR APTT ABG pH ABG pO2 ABG HCO3 ABG O2 Saturation ABG Base Excess ABG Hemoglobin Oxyhemoglobin Sodium Potassium Chloride Carbon Dioxide BUN Creatinine Glucose POC Glucose 121 H 157 H 112 H Lactic Acid Calcium Ionized Calcium Phosphorus Magnesium Total Bilirubin AST ALT Alkaline Phosphatase Ammonia Total Creatine Kinase CK-MB (CK-2) CK-MB (CK-2) Rel Index Total Protein Albumin Urine WBC (Auto) Vancomycin Trough Salicylates Acetaminophen Plasma/Serum Alcohol Crossmatch 02/23/20 02/24/20 02/24/20 16:47 00:38 07:00 WBC RBC Hgb Hct MCH RDW Plt Count Lymph % (Auto) [place] % (Auto) [place] # Baso # Seg Neutrophils % Seg Neuts % (Manual) Lymphocytes % (Manual) Monocytes % (Manual) Seg Neutrophils # Seg Neutrophils # Man Lymphocytes # (Manual) Monocytes # (Manual) Eosinophils # (Manual) Basophils # (Manual) PT INR APTT ABG pH ABG pO2 ABG HCO3 ABG O2 Saturation ABG Base Excess ABG Hemoglobin Oxyhemoglobin Sodium Potassium Chloride Carbon Dioxide BUN Creatinine Glucose POC Glucose 142 H 138 H 118 H Lactic Acid Calcium Ionized Calcium Phosphorus Magnesium Total Bilirubin AST ALT Alkaline Phosphatase Ammonia Total Creatine Kinase CK-MB (CK-2) CK-MB (CK-2) Rel Index Total Protein Albumin Urine WBC (Auto) Vancomycin Trough Salicylates Acetaminophen Plasma/Serum Alcohol Crossmatch 02/24/20 02/24/20 02/25/20 11:41 18:33 18:24 WBC RBC Hgb Hct MCH RDW Plt Count Lymph % (Auto) [place] % (Auto) [place] # Baso # Seg Neutrophils % Seg Neuts % (Manual) Lymphocytes % (Manual) Monocytes % (Manual) Seg Neutrophils # Seg Neutrophils # Man Lymphocytes # (Manual) Monocytes # (Manual) Eosinophils # (Manual) Basophils # (Manual) PT INR APTT ABG pH ABG pO2 ABG HCO3 ABG O2 Saturation ABG Base Excess ABG Hemoglobin Oxyhemoglobin Sodium Potassium Chloride Carbon Dioxide BUN Creatinine Glucose POC Glucose 152 H 126 H 120 H Lactic Acid Calcium Ionized Calcium Phosphorus Magnesium Total Bilirubin AST ALT Alkaline Phosphatase Ammonia Total Creatine Kinase CK-MB (CK-2) CK-MB (CK-2) Rel Index Total Protein Albumin Urine WBC (Auto) Vancomycin Trough Salicylates Acetaminophen Plasma/Serum Alcohol Crossmatch 02/25/20 02/26/20 02/26/20 23:40 05:46 11:32 WBC RBC Hgb Hct MCH RDW Plt Count Lymph % (Auto) [place] % (Auto) [place] # Baso # Seg Neutrophils % Seg Neuts % (Manual) Lymphocytes % (Manual) Monocytes % (Manual) Seg Neutrophils # Seg Neutrophils # Man Lymphocytes # (Manual) Monocytes # (Manual) Eosinophils # (Manual) Basophils # (Manual) PT INR APTT ABG pH ABG pO2 ABG HCO3 ABG O2 Saturation ABG Base Excess ABG Hemoglobin Oxyhemoglobin Sodium Potassium Chloride Carbon Dioxide BUN Creatinine Glucose POC Glucose 114 H 113 H 106 H Lactic Acid Calcium Ionized Calcium Phosphorus Magnesium Total Bilirubin AST ALT Alkaline Phosphatase Ammonia Total Creatine Kinase CK-MB (CK-2) CK-MB (CK-2) Rel Index Total Protein Albumin Urine WBC (Auto) Vancomycin Trough Salicylates Acetaminophen Plasma/Serum Alcohol Crossmatch 06/06/0802/27/20 02/27/20 16:14 11:53 17:54 WBC RBC Hgb Hct MCH RDW Plt Count Lymph % (Auto) [place] % (Auto) [place] # Baso # Seg Neutrophils % Seg Neuts % (Manual) Lymphocytes % (Manual) Monocytes % (Manual) Seg Neutrophils # Seg Neutrophils # Man Lymphocytes # (Manual) Monocytes # (Manual) Eosinophils # (Manual) Basophils # (Manual) PT INR APTT ABG pH ABG pO2 ABG HCO3 ABG O2 Saturation ABG Base Excess ABG Hemoglobin Oxyhemoglobin Sodium Potassium Chloride Carbon Dioxide BUN Creatinine Glucose POC Glucose 123 H 134 H 119 H Lactic Acid Calcium Ionized Calcium Phosphorus Magnesium Total Bilirubin AST ALT Alkaline Phosphatase Ammonia Total Creatine Kinase CK-MB (CK-2) CK-MB (CK-2) Rel Index Total Protein Albumin Urine WBC (Auto) Vancomycin Trough Salicylates Acetaminophen Plasma/Serum Alcohol Crossmatch 02/27/20 02/28/20 02/28/20 23:51 03:40 03:40 WBC RBC 3.58 L Hgb Hct MCH RDW Plt Count 575 H Lymph % (Auto) [place] % (Auto) 9.4 H [place] # 1.0 H Baso # Seg Neutrophils % Seg Neuts % (Manual) Lymphocytes % (Manual) Monocytes % (Manual) Seg Neutrophils # Seg Neutrophils # Man Lymphocytes # (Manual) Monocytes # (Manual) Eosinophils # (Manual) Basophils # (Manual) PT INR APTT ABG pH ABG pO2 ABG HCO3 ABG O2 Saturation ABG Base Excess ABG Hemoglobin Oxyhemoglobin Sodium Potassium Chloride Carbon Dioxide BUN 23 H Creatinine 0.5 L Glucose 114 H POC Glucose 138 H Lactic Acid Calcium Ionized Calcium Phosphorus Magnesium Total Bilirubin AST ALT Alkaline Phosphatase Ammonia Total Creatine Kinase CK-MB (CK-2) CK-MB (CK-2) Rel Index Total Protein Albumin Urine WBC (Auto) Vancomycin Trough Salicylates Acetaminophen Plasma/Serum Alcohol Crossmatch 02/28/20 02/28/20 02/29/20 12:37 18:38 05:50 WBC RBC Hgb Hct MCH RDW Plt Count Lymph % (Auto) [place] % (Auto) [place] # Baso # Seg Neutrophils % Seg Neuts % (Manual) Lymphocytes % (Manual) Monocytes % (Manual) Seg Neutrophils # Seg Neutrophils # Man Lymphocytes # (Manual) Monocytes # (Manual) Eosinophils # (Manual) Basophils # (Manual) PT INR APTT ABG pH ABG pO2 ABG HCO3 ABG O2 Saturation ABG Base Excess ABG Hemoglobin Oxyhemoglobin Sodium Potassium Chloride Carbon Dioxide BUN Creatinine Glucose POC Glucose 115 H 120 H 114 H Lactic Acid Calcium Ionized Calcium Phosphorus Magnesium Total Bilirubin AST ALT Alkaline Phosphatase Ammonia Total Creatine Kinase CK-MB (CK-2) CK-MB (CK-2) Rel Index Total Protein Albumin Urine WBC (Auto) Vancomycin Trough Salicylates Acetaminophen Plasma/Serum Alcohol Crossmatch 02/29/20 02/29/20 03/01/20 18:53 23:10 06:53 WBC RBC Hgb Hct MCH RDW Plt Count Lymph % (Auto) [place] % (Auto) [place] # Baso # Seg Neutrophils % Seg Neuts % (Manual) Lymphocytes % (Manual) Monocytes % (Manual) Seg Neutrophils # Seg Neutrophils # Man Lymphocytes # (Manual) Monocytes # (Manual) Eosinophils # (Manual) Basophils # (Manual) PT INR APTT ABG pH ABG pO2 ABG HCO3 ABG O2 Saturation ABG Base Excess ABG Hemoglobin Oxyhemoglobin Sodium Potassium Chloride Carbon Dioxide BUN Creatinine Glucose POC Glucose 112 H 147 H 131 H Lactic Acid Calcium Ionized Calcium Phosphorus Magnesium Total Bilirubin AST ALT Alkaline Phosphatase Ammonia Total Creatine Kinase CK-MB (CK-2) CK-MB (CK-2) Rel Index Total Protein Albumin Urine WBC (Auto) Vancomycin Trough Salicylates Acetaminophen Plasma/Serum Alcohol Crossmatch 03/01/20 03/01/20 03/02/20 17:31 18:35 00:10 WBC RBC Hgb Hct MCH RDW Plt Count Lymph % (Auto) [place] % (Auto) [place] # Baso # Seg Neutrophils % Seg Neuts % (Manual) Lymphocytes % (Manual) Monocytes % (Manual) Seg Neutrophils # Seg Neutrophils # Man Lymphocytes # (Manual) Monocytes # (Manual) Eosinophils # (Manual) Basophils # (Manual) PT INR APTT ABG pH ABG pO2 ABG HCO3 ABG O2 Saturation ABG Base Excess ABG Hemoglobin Oxyhemoglobin Sodium Potassium Chloride Carbon Dioxide BUN Creatinine Glucose POC Glucose 61 L 129 H 117 H Lactic Acid Calcium Ionized Calcium Phosphorus Magnesium Total Bilirubin AST ALT Alkaline Phosphatase Ammonia Total Creatine Kinase CK-MB (CK-2) CK-MB (CK-2) Rel Index Total Protein Albumin Urine WBC (Auto) Vancomycin Trough Salicylates Acetaminophen Plasma/Serum Alcohol Crossmatch 03/02/20 03/02/20 03/02/20 06:56 12:02 18:42 WBC RBC Hgb Hct MCH RDW Plt Count Lymph % (Auto) [place] % (Auto) [place] # Baso # Seg Neutrophils % Seg Neuts % (Manual) Lymphocytes % (Manual) Monocytes % (Manual) Seg Neutrophils # Seg Neutrophils # Man Lymphocytes # (Manual) Monocytes # (Manual) Eosinophils # (Manual) Basophils # (Manual) PT INR APTT ABG pH ABG pO2 ABG HCO3 ABG O2 Saturation ABG Base Excess ABG Hemoglobin Oxyhemoglobin Sodium Potassium Chloride Carbon Dioxide BUN Creatinine Glucose POC Glucose 125 H 111 H 126 H Lactic Acid Calcium Ionized Calcium Phosphorus Magnesium Total Bilirubin AST ALT Alkaline Phosphatase Ammonia Total Creatine Kinase CK-MB (CK-2) CK-MB (CK-2) Rel Index Total Protein Albumin Urine WBC (Auto) Vancomycin Trough Salicylates Acetaminophen Plasma/Serum Alcohol Crossmatch 03/03/20 03/03/20 03/03/20 00:18 06:11 11:50 WBC RBC Hgb Hct MCH RDW Plt Count Lymph % (Auto) [place] % (Auto) [place] # Baso # Seg Neutrophils % Seg Neuts % (Manual) Lymphocytes % (Manual) Monocytes % (Manual) Seg Neutrophils # Seg Neutrophils # Man Lymphocytes # (Manual) Monocytes # (Manual) Eosinophils # (Manual) Basophils # (Manual) PT INR APTT ABG pH ABG pO2 ABG HCO3 ABG O2 Saturation ABG Base Excess ABG Hemoglobin Oxyhemoglobin Sodium Potassium Chloride Carbon Dioxide BUN Creatinine Glucose POC Glucose 139 H 155 H 118 H Lactic Acid Calcium Ionized Calcium Phosphorus Magnesium Total Bilirubin AST ALT Alkaline Phosphatase Ammonia Total Creatine Kinase CK-MB (CK-2) CK-MB (CK-2) Rel Index Total Protein Albumin Urine WBC (Auto) Vancomycin Trough Salicylates Acetaminophen Plasma/Serum Alcohol Crossmatch 03/03/20 03/03/20 03/04/20 18:09 23:46 05:37 WBC RBC Hgb Hct MCH RDW Plt Count Lymph % (Auto) [place] % (Auto) [place] # Baso # Seg Neutrophils % Seg Neuts % (Manual) Lymphocytes % (Manual) Monocytes % (Manual) Seg Neutrophils # Seg Neutrophils # Man Lymphocytes # (Manual) Monocytes # (Manual) Eosinophils # (Manual) Basophils # (Manual) PT INR APTT ABG pH ABG pO2 ABG HCO3 ABG O2 Saturation ABG Base Excess ABG Hemoglobin Oxyhemoglobin Sodium Potassium Chloride Carbon Dioxide BUN Creatinine Glucose POC Glucose 109 H 132 H 111 H Lactic Acid Calcium Ionized Calcium Phosphorus Magnesium Total Bilirubin AST ALT Alkaline Phosphatase Ammonia Total Creatine Kinase CK-MB (CK-2) CK-MB (CK-2) Rel Index Total Protein Albumin Urine WBC (Auto) Vancomycin Trough Salicylates Acetaminophen Plasma/Serum Alcohol Crossmatch 03/04/20 03/04/20 03/05/20 11:38 17:54 00:14 WBC RBC Hgb Hct MCH RDW Plt Count Lymph % (Auto) [place] % (Auto) [place] # Baso # Seg Neutrophils % Seg Neuts % (Manual) Lymphocytes % (Manual) Monocytes % (Manual) Seg Neutrophils # Seg Neutrophils # Man Lymphocytes # (Manual) Monocytes # (Manual) Eosinophils # (Manual) Basophils # (Manual) PT INR APTT ABG pH ABG pO2 ABG HCO3 ABG O2 Saturation ABG Base Excess ABG Hemoglobin Oxyhemoglobin Sodium Potassium Chloride Carbon Dioxide BUN Creatinine Glucose POC Glucose 138 H 118 H 134 H Lactic Acid Calcium Ionized Calcium Phosphorus Magnesium Total Bilirubin AST ALT Alkaline Phosphatase Ammonia Total Creatine Kinase CK-MB (CK-2) CK-MB (CK-2) Rel Index Total Protein Albumin Urine WBC (Auto) Vancomycin Trough Salicylates Acetaminophen Plasma/Serum Alcohol Crossmatch 03/06/20 03/06/20 03/06/20 03:37 03:37 06:29 WBC RBC Hgb Hct MCH RDW Plt Count 550 H Lymph % (Auto) [place] % (Auto) 9.1 H [place] # Baso # Seg Neutrophils % Seg Neuts % (Manual) Lymphocytes % (Manual) Monocytes % (Manual) Seg Neutrophils # Seg Neutrophils # Man Lymphocytes # (Manual) Monocytes # (Manual) Eosinophils # (Manual) Basophils # (Manual) PT INR APTT ABG pH ABG pO2 ABG HCO3 ABG O2 Saturation ABG Base Excess ABG Hemoglobin Oxyhemoglobin Sodium Potassium Chloride Carbon Dioxide BUN 26 H Creatinine 0.5 L Glucose POC Glucose 128 H Lactic Acid Calcium 10.4 H Ionized Calcium Phosphorus Magnesium Total Bilirubin AST ALT Alkaline Phosphatase Ammonia Total Creatine Kinase CK-MB (CK-2) CK-MB (CK-2) Rel Index Total Protein Albumin Urine WBC (Auto) Vancomycin Trough Salicylates Acetaminophen Plasma/Serum Alcohol Crossmatch 03/06/20 03/07/20 03/07/20 17:47 06:37 12:37 WBC RBC Hgb Hct MCH RDW Plt Count Lymph % (Auto) [place] % (Auto) [place] # Baso # Seg Neutrophils % Seg Neuts % (Manual) Lymphocytes % (Manual) Monocytes % (Manual) Seg Neutrophils # Seg Neutrophils # Man Lymphocytes # (Manual) Monocytes # (Manual) Eosinophils # (Manual) Basophils # (Manual) PT INR APTT ABG pH ABG pO2 ABG HCO3 ABG O2 Saturation ABG Base Excess ABG Hemoglobin Oxyhemoglobin Sodium Potassium Chloride Carbon Dioxide BUN Creatinine Glucose POC Glucose 120 H 113 H 118 H Lactic Acid Calcium Ionized Calcium Phosphorus Magnesium Total Bilirubin AST ALT Alkaline Phosphatase Ammonia Total Creatine Kinase CK-MB (CK-2) CK-MB (CK-2) Rel Index Total Protein Albumin Urine WBC (Auto) Vancomycin Trough Salicylates Acetaminophen Plasma/Serum Alcohol Crossmatch 03/07/20 03/08/20 03/08/20 16:41 00:55 06:25 WBC RBC Hgb Hct MCH RDW Plt Count Lymph % (Auto) [place] % (Auto) [place] # Baso # Seg Neutrophils % Seg Neuts % (Manual) Lymphocytes % (Manual) Monocytes % (Manual) Seg Neutrophils # Seg Neutrophils # Man Lymphocytes # (Manual) Monocytes # (Manual) Eosinophils # (Manual) Basophils # (Manual) PT INR APTT ABG pH ABG pO2 ABG HCO3 ABG O2 Saturation ABG Base Excess ABG Hemoglobin Oxyhemoglobin Sodium Potassium Chloride Carbon Dioxide BUN Creatinine Glucose POC Glucose 108 H 139 H 127 H Lactic Acid Calcium Ionized Calcium Phosphorus Magnesium Total Bilirubin AST ALT Alkaline Phosphatase Ammonia Total Creatine Kinase CK-MB (CK-2) CK-MB (CK-2) Rel Index Total Protein Albumin Urine WBC (Auto) Vancomycin Trough Salicylates Acetaminophen Plasma/Serum Alcohol Crossmatch 03/08/20 03/08/20 03/08/20 12:49 13:25 17:13 WBC RBC Hgb Hct MCH RDW Plt Count Lymph % (Auto) [place] % (Auto) [place] # Baso # Seg Neutrophils % Seg Neuts % (Manual) Lymphocytes % (Manual) Monocytes % (Manual) Seg Neutrophils # Seg Neutrophils # Man Lymphocytes # (Manual) Monocytes # (Manual) Eosinophils # (Manual) Basophils # (Manual) PT INR APTT ABG pH ABG pO2 71.1 L ABG HCO3 26.2 H ABG O2 Saturation ABG Base Excess ABG Hemoglobin 8.2 L Oxyhemoglobin 94.8 L Sodium Potassium Chloride Carbon Dioxide BUN Creatinine Glucose POC Glucose 127 H 147 H Lactic Acid Calcium Ionized Calcium Phosphorus Magnesium Total Bilirubin AST ALT Alkaline Phosphatase Ammonia Total Creatine Kinase CK-MB (CK-2) CK-MB (CK-2) Rel Index Total Protein Albumin Urine WBC (Auto) Vancomycin Trough Salicylates Acetaminophen Plasma/Serum Alcohol Crossmatch 03/09/20 03/09/20 03/09/20 06:28 08:36 23:58 WBC RBC Hgb Hct MCH RDW Plt Count Lymph % (Auto) [place] % (Auto) [place] # Baso # Seg Neutrophils % Seg Neuts % (Manual) Lymphocytes % (Manual) Monocytes % (Manual) Seg Neutrophils # Seg Neutrophils # Man Lymphocytes # (Manual) Monocytes # (Manual) Eosinophils # (Manual) Basophils # (Manual) PT INR APTT ABG pH ABG pO2 ABG HCO3 ABG O2 Saturation ABG Base Excess ABG Hemoglobin Oxyhemoglobin Sodium Potassium Chloride Carbon Dioxide BUN Creatinine Glucose POC Glucose 139 H 167 H 122 H Lactic Acid Calcium Ionized Calcium Phosphorus Magnesium Total Bilirubin AST ALT Alkaline Phosphatase Ammonia Total Creatine Kinase CK-MB (CK-2) CK-MB (CK-2) Rel Index Total Protein Albumin Urine WBC (Auto) Vancomycin Trough Salicylates Acetaminophen Plasma/Serum Alcohol Crossmatch 03/10/20 03/10/20 03/11/20 06:32 23:27 06:23 WBC RBC Hgb Hct MCH RDW Plt Count Lymph % (Auto) [place] % (Auto) [place] # Baso # Seg Neutrophils % Seg Neuts % (Manual) Lymphocytes % (Manual) Monocytes % (Manual) Seg Neutrophils # Seg Neutrophils # Man Lymphocytes # (Manual) Monocytes # (Manual) Eosinophils # (Manual) Basophils # (Manual) PT INR APTT ABG pH ABG pO2 ABG HCO3 ABG O2 Saturation ABG Base Excess ABG Hemoglobin Oxyhemoglobin Sodium Potassium Chloride Carbon Dioxide BUN Creatinine Glucose POC Glucose 165 H 115 H 139 H Lactic Acid Calcium Ionized Calcium Phosphorus Magnesium Total Bilirubin AST ALT Alkaline Phosphatase Ammonia Total Creatine Kinase CK-MB (CK-2) CK-MB (CK-2) Rel Index Total Protein Albumin Urine WBC (Auto) Vancomycin Trough Salicylates Acetaminophen Plasma/Serum Alcohol Crossmatch 03/11/20 03/11/20 03/12/20 12:29 18:02 04:53 WBC RBC Hgb Hct MCH RDW Plt Count 625 H Lymph % (Auto) [place] % (Auto) [place] # Baso # Seg Neutrophils % Seg Neuts % (Manual) Lymphocytes % (Manual) Monocytes % (Manual) Seg Neutrophils # Seg Neutrophils # Man Lymphocytes # (Manual) Monocytes # (Manual) Eosinophils # (Manual) Basophils # (Manual) PT INR APTT ABG pH ABG pO2 ABG HCO3 ABG O2 Saturation ABG Base Excess ABG Hemoglobin Oxyhemoglobin Sodium Potassium Chloride Carbon Dioxide BUN Creatinine Glucose POC Glucose 164 H 113 H Lactic Acid Calcium Ionized Calcium Phosphorus Magnesium Total Bilirubin AST ALT Alkaline Phosphatase Ammonia Total Creatine Kinase CK-MB (CK-2) CK-MB (CK-2) Rel Index Total Protein Albumin Urine WBC (Auto) Vancomycin Trough Salicylates Acetaminophen Plasma/Serum Alcohol Crossmatch 03/12/20 03/12/20 03/12/20 04:53 06:26 12:38 WBC RBC Hgb Hct MCH RDW Plt Count Lymph % (Auto) [place] % (Auto) [place] # Baso # Seg Neutrophils % Seg Neuts % (Manual) Lymphocytes % (Manual) Monocytes % (Manual) Seg Neutrophils # Seg Neutrophils # Man Lymphocytes # (Manual) Monocytes # (Manual) Eosinophils # (Manual) Basophils # (Manual) PT INR APTT ABG pH ABG pO2 ABG HCO3 ABG O2 Saturation ABG Base Excess ABG Hemoglobin Oxyhemoglobin Sodium Potassium 5.3 H Chloride Carbon Dioxide BUN 34 H Creatinine Glucose 159 H POC Glucose 149 H 130 H Lactic Acid Calcium 10.7 H Ionized Calcium Phosphorus Magnesium Total Bilirubin AST ALT Alkaline Phosphatase Ammonia Total Creatine Kinase CK-MB (CK-2) CK-MB (CK-2) Rel Index Total Protein Albumin Urine WBC (Auto) Vancomycin Trough Salicylates Acetaminophen Plasma/Serum Alcohol Crossmatch 03/13/20 03/13/20 03/13/20 03:50 06:12 18:11 WBC RBC Hgb Hct MCH RDW Plt Count Lymph % (Auto) [place] % (Auto) [place] # Baso # Seg Neutrophils % Seg Neuts % (Manual) Lymphocytes % (Manual) Monocytes % (Manual) Seg Neutrophils # Seg Neutrophils # Man Lymphocytes # (Manual) Monocytes # (Manual) Eosinophils # (Manual) Basophils # (Manual) PT INR APTT ABG pH ABG pO2 ABG HCO3 ABG O2 Saturation ABG Base Excess ABG Hemoglobin Oxyhemoglobin Sodium Potassium Chloride Carbon Dioxide 20 L BUN 30 H Creatinine 0.6 L Glucose 153 H POC Glucose 124 H 111 H Lactic Acid Calcium Ionized Calcium Phosphorus Magnesium Total Bilirubin AST ALT Alkaline Phosphatase Ammonia Total Creatine Kinase CK-MB (CK-2) CK-MB (CK-2) Rel Index Total Protein Albumin Urine WBC (Auto) Vancomycin Trough Salicylates Acetaminophen Plasma/Serum Alcohol Crossmatch 03/14/20 12:01 WBC RBC Hgb Hct MCH RDW Plt Count Lymph % (Auto) [place] % (Auto) [place] # Baso # Seg Neutrophils % Seg Neuts % (Manual) Lymphocytes % (Manual) Monocytes % (Manual) Seg Neutrophils # Seg Neutrophils # Man Lymphocytes # (Manual) Monocytes # (Manual) Eosinophils # (Manual) Basophils # (Manual) PT INR APTT ABG pH ABG pO2 ABG HCO3 ABG O2 Saturation ABG Base Excess ABG Hemoglobin Oxyhemoglobin Sodium Potassium Chloride Carbon Dioxide BUN Creatinine Glucose POC Glucose 116 H Lactic Acid Calcium Ionized Calcium Phosphorus Magnesium Total Bilirubin AST ALT Alkaline Phosphatase Ammonia Total Creatine Kinase CK-MB (CK-2) CK-MB (CK-2) Rel Index Total Protein Albumin Urine WBC (Auto) Vancomycin Trough Salicylates Acetaminophen Plasma/Serum Alcohol Crossmatch Allied health notes reviewed: RT
--- NOTE | 2020-03-14 13:13 | Progress Note ---
Assessment and Plan Assessment and plan: 54-year-old female with a past medical history of Hypertension, Depression, Tobacco use Disorder, Alcohol use Disorder as confirmed by Daughter and pt's mother presents to the hospital status post cardiac arrest at home. EMS found pt in [facility]. They were unable to intubate patient with a ET tube because she was clenching down therefore Joe airway placed. Per the ED physician who evaluated pt, Patient presented with a pulse, intermittent respirations, and bagging support via Joe airway with O2 sat of 100%. Accu-Chek of 71 obtained by EMS. She was intubated in the ER and called for admission. Following admission patient was diagnosed with anoxic brain injury, sepsis with MRSA bacteremia and MSSA pneumonia, alcoholic liver disease. Family member initially wished for full code then changed to DNR, patient treated with IV antibiotics for sepsis, status post trach and PEG on 12/13/19. Weaned off from the vent and put on T- piece. Patient is uninsured, waiting for placement, guarded prognosis. 03/07: Returning to service no acute changes are noted. Continue current management while awaiting placement. Intermittent labs. Base of neck also around tracheostomy tube preventing downgrading. Continue appropriate wound care. 03/08: Plan of care unchanged continues on aerosol trach collar 28% of oxygen. Continue wound care management placement still pending status decision. 03/09: Continue current treatment plan. Continue aspiration precaution 03/10: Continue current management, Restraints as patient still pulling, awaiting placement 03/11: Continue supportive care, intermittent suctioning and pulmonary toilet. awaiting placement. 03/12: Continue supportive care, Give a bolus of fluids due to Hypercalcemia, Monitor Hyperkalemia with labs in am, No arrhythmia. Patient vomiting, concern for aspiration, Chest xray ordered and no active disease noted. Keep HOB >45% 03/13: No evidence of aspiration on xray. Continue supportive care. 03/14: Continue supportive care. Capping trials to start. Discussed with patients nursing and case management to continue daily PT by the Rehab team. / Anoxic brain injury: suspected CT head: No acute abnormality. EEG ordered showed Generalized slowing. No seizures or epileptiform activity. -Patient now opening her eyes, can speak and able to follow command -As needed haldol for agitation /Acute Respiratory failure -due to MSSA PNA -s/p intubation, s/p trach and PEG on 12/12 with mechanical ventilation, now on T-piece - CTA was done and negative for PE, - Echo quality is poor, showed diastolic dysfunction - continue weaning as tolerated -Continue appropriate and adequate tracheostomy care /Tracheostomy site ulceration -Continue appropriate wound management try to keep area dry. /Anemia, microcytic - Status post 3 units PRBC transfusion, H&H low stable /Acute metabolic encephalopathy/toxic encephalopathy due to the above - cont supportive care /Hyperammonemia - likely from liver disease related to EtOH abuse - Patient had elevated ammonia level and treated with lactulose /Metabolic Acidosis -Alcohol ketoacidosis vs hypoprofusion -Continue to monitor /ELevated LFTs, stable now - due to ischemic hepatitis. /Leucocytosis with sepsis - Source MRSA bacteremia and MSSA pneumonia. UA showed pyuria. RUQ US showed no ascites. - Repeat TTE negative for vegetation. Completed 7 days of Ceftriaxone on 11/29/2019. -Treated with Abx vancomycin 1 gm IV q 12 hour total 2 week till 12/30/2019 /Severe protein calorie malnutrition Dietitian consult to assist in management. /MSSA pneumonia: Status post vancomycin till 12/30/2019 /Alcohol use Disorder - given ongoing Alcohol use almost daily, s/p IV Thiamine - monitor /Severe hypokalemia -Repleted /Seizure disorder: treat with Keppra /H. Influenzae, tracheobronchitis, treated with abx /Moderate to severe fecal impaction - will add stool softner DNR CODE STATUS Disposition: prognosis guarded. Family okay for DNR, PT recommended subacute rehab, discharge pending on placement. negative for COVID 19 History Interval history: Patient seen and examined no clinical change at this time continues on ATC at 28% off oxygen. Hospitalist Physical - Physical exam Narrative exam: General appearance: Present: Appears older than stated age Intermittent agita tion - EENT Eyes: no scleral icterus, no conjunctival injection, pupil not reactive ENT: clear oral mucosa, dentition normal, no oropharyngeal erythema Ears: bilateral: normal - Neck Neck: trach on place with mild ulceration at the base. - Respiratory Respiratory effort: other (on T-piece) Respiratory: bilateral: rales - Cardiovascular Rhythm: regular Heart Sounds: Present: S1 & S2. Absent: gallop, rub Extremities: pulses intact, No edema, normal color - Gastrointestinal General gastrointestinal: Present: soft, non-tender, non-distended, normal bowel sounds - Integumentary Integumentary: clear, warm, dry - Musculoskeletal Musculoskeletal: No joint swelling or tenderness - Neurologic Neurologic: other (2+ reflexes throughout). respond to commend and nods head. generalized weakness, verbal - Psychiatric Psychiatric: co-operative - Constitutional Vitals: Temp Pulse Resp BP Pulse Ox 98.4 F 86 18 163/95 97 03/14/20 08:49 03/14/20 03:46 03/14/20 10:00 03/14/20 08:49 03/14/20 03:47 General appearance: Present: mild distress, cachectic, disheveled, other (Noncommunicative) HEART Score - HEART Score Troponin: Troponin T < 0.010 ng/mL (0.00-0.029) 11/22/19 23:27 Results - Labs CBC & Chem 7: 03/12/20 04:53 03/13/20 03:50 Labs: Laboratory Last Values WBC 9.1 K/mm3 (4.5-11.0) 03/12/20 04:53 RBC 3.90 M/mm3 (3.65-5.03) 03/12/20 04:53 Hgb 11.5 gm/dl (10.1-14.3) 03/12/20 04:53 Hct 34.2 % (30.3-42.9) 03/12/20 04:53 MCV 88 fl (79-97) 03/12/20 04:53 MCH 29 pg (28-32) 03/12/20 04:53 MCHC 34 % (30-34) 03/12/20 04:53 RDW 14.4 % (13.2-15.2) 03/12/20 04:53 Plt Count 625 K/mm3 (140-440) H 03/12/20 04:53 Lymph % (Auto) 27.8 % (13.4-35.0) 03/06/20 03:37 [place] % (Auto) 9.1 % (0.0-7.3) H 03/06/20 03:37 Eos % (Auto) 2.8 % (0.0-4.3) 03/06/20 03:37 Baso % (Auto) 0.7 % (0.0-1.8) 03/06/20 03:37 Lymph # 2.2 K/mm3 (1.2-5.4) 03/06/20 03:37 [place] # 0.7 K/mm3 (0.0-0.8) 03/06/20 03:37 Eos # 0.2 K/mm3 (0.0-0.4) 03/06/20 03:37 Baso # 0.1 K/mm3 (0.0-0.1) 03/06/20 03:37 Add Manual Diff Complete 12/25/19 03:47 Total Counted 200 12/25/19 03:47 Seg Neutrophils % 59.6 % (40.0-70.0) 03/06/20 03:37 Seg Neuts % (Manual) 97.5 % (40.0-70.0) H 12/25/19 03:47 Band Neutrophils % 0 % 12/25/19 03:47 Lymphocytes % (Manual) 1.0 % (13.4-35.0) L 12/25/19 03:47 Reactive Lymphs % (Man) 0 % 12/25/19 03:47 Monocytes % (Manual) 1.5 % (0.0-7.3) 12/25/19 03:47 Eosinophils % (Manual) 0 % (0.0-4.3) 12/25/19 03:47 Basophils % (Manual) 0 % (0.0-1.8) 12/25/19 03:47 Metamyelocytes % 0 % 12/25/19 03:47 Myelocytes % 0 % 12/25/19 03:47 Promyelocytes % 0 % 12/25/19 03:47 Blast Cells % 0 % 12/25/19 03:47 Nucleated RBC % Not Reportable 12/25/19 03:47 Seg Neutrophils # 4.8 K/mm3 (1.8-7.7) 03/06/20 03:37 Seg Neutrophils # Man 35.3 K/mm3 (1.8-7.7) H 12/25/19 03:47 Band Neutrophils # 0.0 K/mm3 12/25/19 03:47 Lymphocytes # (Manual) 0.4 K/mm3 (1.2-5.4) L 12/25/19 03:47 Abs React Lymphs (Man) 0.0 K/mm3 12/25/19 03:47 Monocytes # (Manual) 0.5 K/mm3 (0.0-0.8) 12/25/19 03:47 Eosinophils # (Manual) 0.0 K/mm3 (0.0-0.4) 12/25/19 03:47 Basophils # (Manual) 0.0 K/mm3 (0.0-0.1) 12/25/19 03:47 Metamyelocytes # 0.0 K/mm3 12/25/19 03:47 Myelocytes # 0.0 K/mm3 12/25/19 03:47 Promyelocytes # 0.0 K/mm3 12/25/19 03:47 Blast Cells # 0.0 K/mm3 12/25/19 03:47 Pathologist Review 12/13/19 07:48 WBC Morphology Not Reportable 12/25/19 03:47 Hypersegmented Neuts Not Reportable 12/25/19 03:47 Hyposegmented Neuts Not Reportable 12/25/19 03:47 Hypogranular Neuts Not Reportable 12/25/19 03:47 Smudge Cells Not Reportable 12/25/19 03:47 Toxic Granulation Not Reportable 12/25/19 03:47 Toxic Vacuolation Not Reportable 12/25/19 03:47 Dohle Bodies Not Reportable 12/25/19 03:47 Pelger-Huet Anomaly Not Reportable 12/25/19 03:47 Dominique Rods Not Reportable 12/25/19 03:47 Platelet Estimate Consistent w auto 12/25/19 03:47 Clumped Platelets Not Reportable 12/25/19 03:47 Plt Clumps, EDTA Not Reportable 12/25/19 03:47 Large Platelets Not Reportable 12/25/19 03:47 Giant Platelets Not Reportable 12/25/19 03:47 Platelet Satelliting Not Reportable 12/25/19 03:47 Plt Morphology Comment Not Reportable 12/25/19 03:47 RBC Morphology Not Reportable 12/25/19 03:47 Dimorphic RBCs Not Reportable 12/25/19 03:47 Polychromasia Not Reportable 12/25/19 03:47 Hypochromasia Not Reportable 12/25/19 03:47 Poikilocytosis Not Reportable 12/25/19 03:47 Anisocytosis 1+ 12/25/19 03:47 Microcytosis Not Reportable 12/25/19 03:47 Macrocytosis Not Reportable 12/25/19 03:47 Spherocytes Not Reportable 12/25/19 03:47 Pappenheimer Bodies Not Reportable 12/25/19 03:47 Sickle Cells Not Reportable 12/25/19 03:47 Target Cells Not Reportable 12/25/19 03:47 Tear Drop Cells Not Reportable 12/25/19 03:47 Ovalocytes Not Reportable 12/25/19 03:47 Helmet Cells Not Reportable 12/25/19 03:47 [place] Bodies Not Reportable 12/25/19 03:47 [place] Rings Not Reportable 12/25/19 03:47 Jamshid Cells Not Reportable 12/25/19 03:47 Bite Cells Not Reportable 12/25/19 03:47 Crenated Cell Not Reportable 12/25/19 03:47 Elliptocytes Not Reportable 12/25/19 03:47 Acanthocytes (Spur) Not Reportable 12/25/19 03:47 Rouleaux Not Reportable 12/25/19 03:47 Hemoglobin C Crystals Not Reportable 12/25/19 03:47 Schistocytes Not Reportable 12/25/19 03:47 Malaria parasites Not Reportable 12/25/19 03:47 Gregg Bodies Not Reportable 12/25/19 03:47 Hem Pathologist Commnt No 12/25/19 03:47 PT 17.0 Sec. (12.2-14.9) H 11/23/19 03:47 INR 1.36 (0.87-1.13) H 11/23/19 03:47 APTT 128.2 Sec. (24.2-36.6) H* 11/23/19 03:47 Heparin Anti-Xa Level 0.31 U.I./ml (0.3-0.7) 11/23/19 09:03 ABG pH 7.433 pH Units (7.350-7.450) 03/08/20 13:25 ABG pCO2 40.2 mm Hg 03/08/20 13:25 ABG pO2 71.1 mm Hg (80.0-90.0) L 03/08/20 13:25 ABG HCO3 26.2 mmol/L (20.0-26.0) H 03/08/20 13:25 ABG O2 Saturation 97.0 % (95.0-99.0) 03/08/20 13:25 ABG O2 Content 11.0 (0.0-44) 03/08/20 13:25 ABG Base Excess 1.8 mmol/L (-2.0-3.0) 03/08/20 13:25 ABG Hemoglobin 8.2 gm/dl (12.0-16.0) L 03/08/20 13:25 ABG Carboxyhemoglobin 1.7 % (0.0-5.0) 03/08/20 13:25 ABG Methemoglobin 0.5 % (0.0-1.5) 03/08/20 13:25 Oxyhemoglobin 94.8 % (95.0-99.0) L 03/08/20 13:25 FiO2 21 % 03/08/20 13:25 Sodium 137 mmol/L (137-145) 03/13/20 03:50 Potassium 3.8 mmol/L (3.6-5.0) D 03/13/20 03:50 Chloride 103.1 mmol/L (98-107) 03/13/20 03:50 Carbon Dioxide 20 mmol/L (22-30) L 03/13/20 03:50 Anion Gap 18 mmol/L 03/13/20 03:50 BUN 30 mg/dL (7-17) H 03/13/20 03:50 Creatinine 0.6 mg/dL (0.7-1.2) L 03/13/20 03:50 Estimated GFR > 60 ml/min 03/13/20 03:50 BUN/Creatinine Ratio 50 % 03/13/20 03:50 Glucose 153 mg/dL (65-100) H 03/13/20 03:50 POC Glucose 116 (70-105) H 03/14/20 12:01 Lactic Acid 1.80 mmol/L (0.7-2.0) 11/25/19 05:05 Calcium 10.0 mg/dL (8.4-10.2) 03/13/20 03:50 Ionized Calcium 4.5 mg/dL (4.8-5.6) L 11/23/19 06:32 Phosphorus 4.20 mg/dL (2.5-4.5) D 11/28/19 08:59 Magnesium 1.90 mg/dL (1.7-2.3) 02/28/20 03:40 Total Bilirubin 0.40 mg/dL (0.1-1.2) 12/13/19 07:48 AST 27 units/L (5-40) 12/13/19 07:48 ALT 26 units/L (7-56) 12/13/19 07:48 Alkaline Phosphatase 316 units/L (35-129) H 12/13/19 07:48 Ammonia 42.0 umol/L (25-60) 11/29/19 13:41 Total Creatine Kinase 139 units/L (30-135) H 11/22/19 23:27 CK-MB (CK-2) 8.3 ng/mL (0.0-4.0) H 11/22/19 23:27 CK-MB (CK-2) Rel Index 5.9 (0-4) H 11/22/19 23:27 Troponin T < 0.010 ng/mL (0.00-0.029) 11/22/19 23:27 Total Protein 6.8 g/dL (6.3-8.2) 12/13/19 07:48 Albumin 2.4 g/dL (3.9-5) L 12/13/19 07:48 Albumin/Globulin Ratio 0.5 % 12/13/19 07:48 Lipase 18 units/L (13-60) 11/23/19 00:34 Procalcitonin 1.09 ng/mL (<0.15) 11/23/19 04:53 TSH 1.010 mlU/mL (0.270-4.200) 02/12/20 07:36 Free T4 1.08 ng/dL (0.76-1.46) 02/12/20 07:36 Urine Color Yellow (Yellow) 12/16/19 Unknown Urine Turbidity Slightly-cloudy (Clear) 12/16/19 Unknown Urine pH 5.0 (5.0-7.0) 12/16/19 Unknown Ur Specific [place] 1.018 (1.003-1.030) 12/16/19 Unknown Urine Protein 30 mg/dl mg/dL (Negative) 12/16/19 Unknown Urine Glucose (UA) Neg mg/dL (Negative) 12/16/19 Unknown Urine Ketones Neg mg/dL (Negative) 12/16/19 Unknown Urine Blood Sm (Negative) 12/16/19 Unknown Urine Nitrite Neg (Negative) 12/16/19 Unknown Urine Bilirubin Neg (Negative) 12/16/19 Unknown Urine Urobilinogen < 2.0 mg/dL (<2.0) 12/16/19 Unknown Ur Leukocyte Esterase Neg (Negative) 12/16/19 Unknown Urine WBC (Auto) 6.0 /HPF (0.0-6.0) 12/16/19 Unknown Urine RBC (Auto) 9.0 /HPF (0.0-6.0) 12/16/19 Unknown U Epithel Cells (Auto) < 1.0 /HPF (0-13.0) 12/16/19 Unknown Urine Bacteria (Auto) 2+ /HPF (Negative) 11/22/19 23:17 Hyaline Casts 3 /LPF 12/16/19 Unknown Granular Casts 3 /LPF 12/16/19 Unknown Urine Mucus Few /HPF 12/16/19 Unknown Vancomycin Trough 33.8 ug/mL (5.0-20.0) H 12/21/19 08:56 Random Vancomycin 16.2 ug/mL (0-40.0) 12/24/19 04:31 Salicylates < 0.3 mg/dL (2.8-20.0) L 11/22/19 23:27 Urine Opiates Screen Presumptive negative 11/22/19 23:17 Urine Methadone Screen Presumptive negative 11/22/19 23:17 Acetaminophen < 5.0 ug/mL (10.0-30.0) L 11/22/19 23:27 Ur Barbiturates Screen Presumptive negative 11/22/19 23:17 Ur Phencyclidine Scrn Presumptive negative 11/22/19 23:17 Ur Amphetamines Screen Presumptive negative 11/22/19 23:17 U Benzodiazepines Scrn Presumptive negative 11/22/19 23:17 Urine Cocaine Screen Presumptive negative 11/22/19 23:17 U Marijuana (THC) Screen Presumptive negative 11/22/19 23:17 Drugs of Abuse Note Disclamer 11/22/19 23:17 Plasma/Serum Alcohol 0.08 % (0-0.07) H 11/22/19 23:27 Coronavirus (PCR) Negative (Negative) 02/05/20 07:50 Hepatitis A IgM Ab Non-reactive (NonReactive) 11/23/19 01:19 Hep Bs Antigen Non-reactive (Negative) 11/23/19 01:19 Hep B Core IgM Ab Non-reactive (NonReactive) 11/23/19 01:19 Hepatitis C Antibody Non-reactive (NonReactive) 11/23/19 01:19 Blood Type O POSITIVE 12/21/19 14:54 Antibody Screen Negative 12/21/19 14:54 Crossmatch See Detail 12/21/19 14:54 - Diagnostic Impressions Diagnostic Impressions: Echocardiogram 11/23/19 03:58 Transthoracic Echocardiogram Indication: Cardiac arrest BP: 131/89 HR: 115 Conclusions *The study quality is technically difficult. *Global left ventricular wall motion and contractility are within normal limits. *The estimated ejection fraction is 55-60%. *Abnormal left ventricular diastolic filling is observed, consistent with impaired relaxation. *There is no pericardial effusion. Findings Procedure Info: The study quality is technically difficult. The study was technically limited due to the patient's inability to lay in the left lateral decubitus position. Left Ventricle: The left ventricular chamber size is normal. There is no left ventricular hypertrophy. Global left ventricular wall motion and contractility are within normal limits. Global left ventricular systolic function is normal. The estimated ejection fraction is 55-60%. Abnormal left ventricular diastolic filling is observed, consistent with impaired relaxation. Left Atrium: The left atrial chamber size is normal. Aortic Valve: The aortic valve leaflets are mildly thickened. Mitral Valve: The mitral valve leaflets are mildly thickened. There is no evidence of mitral regurgitation. Tricuspid Valve: The tricuspid valve leaflets are normal. There is trace tricuspid regurgitation. The right ventricular systolic pressure is calculated at 33 mmHg. Pulmonic Valve: The pulmonic valve appears normal. Pericardium: The pericardium appears normal. There is no pericardial effusion. Aorta: The aorta appears normal. Venous: The inferior vena cava appears normal in size. Measurements Chambers 2D Name Value Normal Range IVSd (2D) 0.94 cm (0.6 - 1.1) LVPWd (2D) 0.81 cm (0.6 - 1.1) LVIDd (2D) 3.6 cm (3.7 - 5.6) LVIDs (2D) 2.27 cm (2 - 3.8) LV FS (2D) 36.93 % - EF Teichholz (2D) 67.76 % - Ao root diameter (2D) 3.03 cm (2 - 3.7) Volumes/Mass Name Value Normal Range LA ESV SP 4CH (A/L) 16.89 ml - LA ESV SP 4CH (MOD) 15.52 ml - Diastolic/Systolic Function Name Value Normal Range MV E-wave Vmax 0.55 m/sec - MV deceleration time 200.89 msec - MV A-wave Vmax 0.68 m/sec - MV E:A ratio 0.82 ratio - Aortic Valve Name Value Normal Range AV Vmax 1.1 m/sec - AV VTI 15.9 cm - AV peak gradient 4.86 mmHg - AV mean gradient 2.59 mmHg - LVOT diameter 2 cm - LVOT Vmax 1.03 m/sec - LVOT VTI 15.87 cm - LVOT peak gradient 4.24 mmHg - LVOT mean gradient 2.41 mmHg - SV LVOT 49.77 ml - JOSÉ MIGUEL (continuity Vmax) 2.93 cm2 - JOSÉ MIGUEL (continuity VTI) 3.13 cm2 - Tricuspid Valve Name Value Normal Range TR Vmax 2.74 m/sec - TR peak gradient 303 mmHg - RAP 3 mmHg - RVSP 33 mmHg - IVC diameter 1.77 cm (1.2 - 2.3) Pulmonic Valve/Qp:Qs Name Value Normal Range PV Vmax 0.77 m/sec - PV peak gradient 2.4 mmHg - PV acceleration time 114.18 msec - Echocardiogram Limited Views 12/17/19 14:53 Transthoracic Echocardiogram Indication: R/O Vegetations BP: 144/83 HR: 133 Conclusions *Global left ventricular systolic function is mildly decreased. *The estimated ejection fraction is 45-50%. *A trivial pericardial effusion is visualized. Findings Left Ventricle: The left ventricular chamber size is normal. Global left ventricular systolic function is mildly decreased. The estimated ejection fraction is 45-50%. Left Atrium: The left atrial chamber size is normal. Right Ventricle: The right ventricular cavity size is normal. Right Atrium: The right atrial cavity size is normal. Aortic Valve: The aortic valve is not well visualized. There is no evidence of aortic regurgitation. Mitral Valve: The mitral valve leaflets are mildly thickened. There is trace of mitral regurgitation. Tricuspid Valve: The tricuspid valve leaflets are mildly thickened. There is trace tricuspid regurgitation. The right ventricular systolic pressure is calculated at 29 mmHg. Pulmonic Valve: The pulmonic valve is not well visualized. There is no evidence of pulmonic regurgitation. Pericardium: A trivial pericardial effusion is visualized. Aorta: There is no dilatation of the ascending aorta. There is no dilatation of the aortic root. Venous: The inferior vena cava appears normal in size. There is a greater than 50% respiratory change in the inferior vena cava dimension. Measurements Chambers 2D Name Value Normal Range IVSd (2D) 0.83 cm (0.6 - 1.1) LVPWd (2D) 0.98 cm (0.6 - 1.1) LVIDd (2D) 3.71 cm (3.7 - 5.6) LVIDs (2D) 2.93 cm (2 - 3.8) LV FS (2D) 21.12 % - EF Teichholz (2D) 43.71 % - Ao root diameter (2D) 3.02 cm (2 - 3.7) Volumes/Mass Name Value Normal Range LA ESV SP 4CH (A/L) 36.8 ml - LA ESV SP 2CH (A/L) 45.89 ml - LA ESV BP (A/L) 42.35 ml - LA ESV BP (A/L) index 26.63 ml/m2 - LA ESV SP 4CH (MOD) 34.42 ml - LA ESV SP 2CH (MOD) 44.21 ml - LA ESV BP (MOD) 39.82 ml - LA ESV BP (MOD) index 25.05 ml/m2 - Aortic Valve Name Value Normal Range LVOT diameter 1.63 cm - Tricuspid Valve Name Value Normal Range TR Vmax 2.56 m/sec - TR peak gradient 26 mmHg - RAP 3 mmHg - RVSP 29 mmHg - IVC diameter 1.83 cm (1.2 - 2.3) [place]/IV: Voiding Method Incontinent IV Catheter Type [Forearm] Peripheral IV IV Catheter Type [Left Forearm INT / Saline Lock ] IV Catheter Type [Right INT / Saline Lock Antecubital] IV Catheter Type [Right Hand] Peripheral IV IV Catheter Type [Right Wrist] Peripheral IV IV Catheter Type [Left Wrist] Peripheral IV IV Catheter Type [Left Peripheral IV Antecubital] IV Catheter Type [Right INT / Saline Lock Forearm] IV Catheter Type [Left Hand] INT / Saline Lock Active Medications - Current Medications Current Medications: Generic Name Dose Route Start Last Admin Trade Name Freq PRN Reason Stop Dose Admin Acetaminophen 650 mg 12/06/19 10:25 03/13/20 20:36 Tylenol FEEDTUBE 650 mg Q6H PRN Administration TEMP >/=100.3 Acetylcysteine 200 mg 02/16/20 20:00 03/14/20 10:38 Mucomyst Inhalation INHALATION 200 mg Q12HRT LUCHO Administration Alprazolam 1 mg 02/21/20 18:24 03/13/20 20:35 Xanax PO 1 mg Q8H PRN Administration Anxiety Amoxicillin/Clavulanate Potassium 1 each 03/09/20 14:00 03/14/20 10:06 Augmentin 875 Mg PO 03/15/20 22:01 1 each Q12HR LUCHO Administration Lipase/Protease/Amylase 1 each 11/23/19 11:[address] 10,500 Unit FEEDTUBE PRN PRN Use w/ sod bicarb for FT Bisacodyl 10 mg 02/06/20 13:57 Dulcolax VT QDAY PRN Constipation unrelieved by MOM Dexamethasone 8 mg 03/13/20 18:00 03/14/20 05:08 Decadron IV 03/14/20 23:59 8 mg Q6HR LUCHO Administration Docusate Sodium 100 mg 02/18/20 22:00 03/14/20 10:04 Colace FEEDTUBE 100 mg BID LUCHO Administration Enoxaparin Sodium 40 mg 03/07/20 22:00 03/13/20 21:19 Enoxaparin SUB-Q 40 mg QDAY@2200 LUCHO Administration Glycopyrrolate 2 mg 12/31/19 20:00 03/14/20 09:04 Robinul PO 2 mg TID LUCHO Administration Haloperidol Lactate 5 mg 03/05/20 09:22 03/14/20 03:01 Haldol IM 5 mg Q6H PRN Administration Agitation Hydralazine HCl 10 mg 11/24/19 00:45 03/03/20 05:57 Apresoline IV 10 mg Q6H PRN Administration SBP > 160 Hydroxyzine Pamoate 25 mg 12/06/19 10:00 03/13/20 21:15 Vistaril PO 25 mg BID LUCHO Administration Lansoprazole 30 mg 11/27/19 10:00 03/14/20 10:05 Prevacid Solutab FEEDTUBE 30 mg QDAY LUCHO Administration Levalbuterol HCl 0.63 mg 02/17/20 00:00 03/14/20 10:38 Xopenex IH 0.63 mg Q8HRT LUCHO Administration Levetiracetam 500 mg 11/29/19 10:00 03/14/20 10:05 Keppra PO 500 mg BID LUCHO Administration Metoprolol Tartrate 12.5 mg 02/23/20 22:00 03/14/20 10:06 Metoprolol PO 12.5 mg BID LUCHO Administration Mirtazapine 30 mg 12/06/19 10:00 03/14/20 10:05 Remeron PO 30 mg DAILY LUCHO Administration Nicotine 21 mg 02/16/20 13:00 03/14/20 10:06 Habitrol TD 21 mg QDAY LUCHO Administration Ondansetron HCl 4 mg 12/10/19 07:53 02/25/20 02:51 Zofran IV 4 mg Q4H PRN Administration Nausea And Vomiting Polyethylene Glycol 17 gm 02/06/20 13:57 Miralax 3350 PO QDAY PRN Constipation Quetiapine Fumarate 100 mg 03/06/20 10:00 03/14/20 10:05 Seroquel FEEDTUBE 100 mg BID LUCHO Administration Scopolamine 1 each 02/08/20 15:00 03/12/20 10:20 Transderm-Scop TD 1 each Q3D LUCHO Administration Sertraline HCl 25 mg 01/01/20 10:00 03/14/20 10:05 Zoloft PO 25 mg QDAY LUCHO Administration Simple Syrup 15 ml 11/23/19 11:50 Simple Syrup FEEDTUBE PRN PRN Hypoglycemia BG<70 Simple Syrup 30 ml 11/23/19 11:50 Simple Syrup FEEDTUBE PRN PRN Hypoglycemia Sodium Bicarbonate 325 mg 11/23/19 11:50 Sodium Bicarbonate FEEDTUBE PRN PRN For Clogged Feeding Tube Nutrition/Malnutrition Assess - Dietary Evaluation Nutrition/Malnutrition Findings: Nutrition Notes Start: 11/23/19 11:29 Freq: Status: Active Protocol: Document 03/13/20 14:31 LM (Rec: 03/13/20 14:32 LM [id number]) Nutrition Notes Initial or Follow up Reassessment Current Diagnosis Hypertension Other Pertinent Diagnosis Cardaic arrest, ETOH dependence, UTI Current Diet Jevity 1.2 at 60ml/hr Labs/Tests Reviewed Pertinent Medications Reviewed Height 5 ft 6 in Weight 46.7 kg [place] Body Weight (kg) 59.09 BMI 16.6 Subjective/Other Information Pt tolerating TF at goal. Percent of energy/protein needs met: 97%/100% Burn Absent Trauma Absent GI Symptoms None Current % PO Negligible Interpretation of Weight Loss (severe) >2% in 1 week Muscle Mass Mild Depletion (non-severe) #2 Nutrition Diagnosis Malnutrition Diagnosis Progress(for reassessment Continues documentation) #1 Diagnosis Progress(for reassessment Continues documentation) Is patient on ventilator? No Is Patient Ambulatory and/or Out of Bed No REE-([facility]-confined to bed) 1305.120 Kcal/Kg value to use for calculation 38 Approximate Energy Requirements Using 1775 kcal/Kg Calculation Used for Recommendations Kcal/kg Additional Notes Protein: 60-75g (1.2-1.5g/kg) Fluid: 1 ml/kcal Nutrition Intervention Change Diet Order: Continue TF Nutrition Support: Jevity 1.2 at 60ml/hr Flush 100ml q4h Kcal 1,728 Protein (gm) 80 Fluid (mL) 1,162 Goal #1 TF tolerance Goal #2 Meet at least 80% of energy and protein needs via TF Goal #3 Wt gain/maintenacne Anticipated Discharge Needs: TF Follow-Up By: 03/20/20 Additional Comments F/U for TF tolerance
[2020-03-14] MEDS: hydrOXYzine PAMOATE 25 MG CAP PO SCH ×2 (14:03→21:41)
[2020-03-14] MEDS: ENOXAPARIN 40 MG/0.4 ML INJ SUB-Q SCH (21:40)
[2020-03-15] MEDS: LEVALBUTEROL 0.63 MG/3 ML NEBU IH SCH ×4 (02:40→21:31)
[2020-03-15] MEDS: ACETYLCYSTEINE 20% 200 MG/1 ML *FOR INHALATION USE INHALATION SCH ×2 (08:24→21:30)
[2020-03-15] MEDS: GLYCOPYRROLATE 1 MG TAB PO SCH ×3 (09:00→21:46)
--- NOTE | 2020-03-15 09:06 | Progress Note ---
Assessment and Plan Assessment and plan: 54-year-old female with a past medical history of Hypertension, Depression, Tobacco use Disorder, Alcohol use Disorder as confirmed by Daughter and pt's mother presents to the hospital status post cardiac arrest at home. EMS found pt in [facility]. They were unable to intubate patient with a ET tube because she was clenching down therefore Joe airway placed. Per the ED physician who evaluated pt, Patient presented with a pulse, intermittent respirations, and bagging support via Joe airway with O2 sat of 100%. Accu-Chek of 71 obtained by EMS. She was intubated in the ER and called for admission. Following admission patient was diagnosed with anoxic brain injury, sepsis with MRSA bacteremia and MSSA pneumonia, alcoholic liver disease. Family member initially wished for full code then changed to DNR, patient treated with IV antibiotics for sepsis, status post trach and PEG on 12/13/19. Weaned off from the vent and put on T- piece. Patient is uninsured, waiting for placement, guarded prognosis. 03/07: Returning to service no acute changes are noted. Continue current management while awaiting placement. Intermittent labs. Base of neck also around tracheostomy tube preventing downgrading. Continue appropriate wound care. 03/08: Plan of care unchanged continues on aerosol trach collar 28% of oxygen. Continue wound care management placement still pending status decision. 03/09: Continue current treatment plan. Continue aspiration precaution 03/10: Continue current management, Restraints as patient still pulling, awaiting placement 03/11: Continue supportive care, intermittent suctioning and pulmonary toilet. awaiting placement. 03/12: Continue supportive care, Give a bolus of fluids due to Hypercalcemia, Monitor Hyperkalemia with labs in am, No arrhythmia. Patient vomiting, concern for aspiration, Chest xray ordered and no active disease noted. Keep HOB >45% 03/13: No evidence of aspiration on xray. Continue supportive care. 03/14: Continue supportive care. Capping trials to start. Discussed with patients nursing and case management to continue daily PT by the Rehab team. 03/15: Discussed again with staff to start capping trial. / Anoxic brain injury: suspected CT head: No acute abnormality. EEG ordered showed Generalized slowing. No seizures or epileptiform activity. -Patient now opening her eyes, can speak and able to follow command -As needed haldol for agitation /Acute Respiratory failure -due to MSSA PNA -s/p intubation, s/p trach and PEG on 12/12 with mechanical ventilation, now on T-piece - CTA was done and negative for PE, - Echo quality is poor, showed diastolic dysfunction - continue weaning as tolerated -Continue appropriate and adequate tracheostomy care /Tracheostomy site ulceration -Continue appropriate wound management try to keep area dry. /Anemia, microcytic - Status post 3 units PRBC transfusion, H&H low stable /Acute metabolic encephalopathy/toxic encephalopathy due to the above - cont supportive care /Hyperammonemia - likely from liver disease related to EtOH abuse - Patient had elevated ammonia level and treated with lactulose /Metabolic Acidosis -Alcohol ketoacidosis vs hypoprofusion -Continue to monitor /ELevated LFTs, stable now - due to ischemic hepatitis. /Leucocytosis with sepsis - Source MRSA bacteremia and MSSA pneumonia. UA showed pyuria. RUQ US showed no ascites. - Repeat TTE negative for vegetation. Completed 7 days of Ceftriaxone on 11/29/2019. -Treated with Abx vancomycin 1 gm IV q 12 hour total 2 week till 12/30/2019 /Severe protein calorie malnutrition Dietitian consult to assist in management. /MSSA pneumonia: Status post vancomycin till 12/30/2019 /Alcohol use Disorder - given ongoing Alcohol use almost daily, s/p IV Thiamine - monitor /Severe hypokalemia -Repleted /Seizure disorder: treat with Keppra /H. Influenzae, tracheobronchitis, treated with abx /Moderate to severe fecal impaction - will add stool softner DNR CODE STATUS Disposition: prognosis guarded. Family okay for DNR, PT recommended subacute rehab, discharge pending on placement. negative for COVID 19 History Interval history: Patient seen and examined no clinical change at this time continues on ATC at 28% off oxygen. Hospitalist Physical - Physical exam Narrative exam: General appearance: Present: Appears older than stated age Intermittent agitation - EENT Eyes: no scleral icterus, no conjunctival injection, pupil not reactive ENT: clear oral mucosa, dentition normal, no oropharyngeal erythema Ears: bilateral: normal - Neck Neck: trach on place with mild ulceration at the base. - Respiratory Respiratory effort: other (on T-piece) Respiratory: bilateral: rales - Cardiovascular Rhythm: regular Heart Sounds: Present: S1 & S2. Absent: gallop, rub Extremities: pulses intact, No edema, normal color - Gastrointestinal General gastrointestinal: Present: soft, non-tender, non-distended, normal bowel sounds - Integumentary Integumentary: clear, warm, dry - Musculoskeletal Musculoskeletal: No joint swelling or tenderness - Neurologic Neurologic: other (2+ reflexes throughout). respond to commend and nods head. generalized weakness, verbal - Psychiatric Psychiatric: co-operative - Constitutional Vitals: Temp Pulse Resp BP Pulse Ox 97.6 F 89 20 158/92 95 03/15/20 06:03 03/15/20 08:25 03/15/20 08:25 03/15/20 06:03 03/15/20 08:27 General appearance: Present: mild distress, cachectic, disheveled, other (Nonco mmunicative) HEART Score - HEART Score Troponin: Troponin T < 0.010 ng/mL (0.00-0.029) 11/22/19 23:27 Results - Labs CBC & Chem 7: 03/12/20 04:53 03/13/20 03:50 Labs: Laboratory Last Values WBC 9.1 K/mm3 (4.5-11.0) 03/12/20 04:53 RBC 3.90 M/mm3 (3.65-5.03) 03/12/20 04:53 Hgb 11.5 gm/dl (10.1-14.3) 03/12/20 04:53 Hct 34.2 % (30.3-42.9) 03/12/20 04:53 MCV 88 fl (79-97) 03/12/20 04:53 MCH 29 pg (28-32) 03/12/20 04:53 MCHC 34 % (30-34) 03/12/20 04:53 RDW 14.4 % (13.2-15.2) 03/12/20 04:53 Plt Count 625 K/mm3 (140-440) H 03/12/20 04:53 Lymph % (Auto) 27.8 % (13.4-35.0) 03/06/20 03:37 [place] % (Auto) 9.1 % (0.0-7.3) H 03/06/20 03:37 Eos % (Auto) 2.8 % (0.0-4.3) 03/06/20 03:37 Baso % (Auto) 0.7 % (0.0-1.8) 03/06/20 03:37 Lymph # 2.2 K/mm3 (1.2-5.4) 03/06/20 03:37 [place]son # 0.7 K/mm3 (0.0-0.8) 03/06/20 03:37 Eos # 0.2 K/mm3 (0.0-0.4) 03/06/20 03:37 Baso # 0.1 K/mm3 (0.0-0.1) 03/06/20 03:37 Add Manual Diff Complete 12/25/19 03:47 Total Counted 200 12/25/19 03:47 Seg Neutrophils % 59.6 % (40.0-70.0) 03/06/20 03:37 Seg Neuts % (Manual) 97.5 % (40.0-70.0) H 12/25/19 03:47 Band Neutrophils % 0 % 12/25/19 03:47 Lymphocytes % (Manual) 1.0 % (13.4-35.0) L 12/25/19 03:47 Reactive Lymphs % (Man) 0 % 12/25/19 03:47 Monocytes % (Manual) 1.5 % (0.0-7.3) 12/25/19 03:47 Eosinophils % (Manual) 0 % (0.0-4.3) 12/25/19 03:47 Basophils % (Manual) 0 % (0.0-1.8) 12/25/19 03:47 Metamyelocytes % 0 % 12/25/19 03:47 Myelocytes % 0 % 12/25/19 03:47 Promyelocytes % 0 % 12/25/19 03:47 Blast Cells % 0 % 12/25/19 03:47 Nucleated RBC % Not Reportable 12/25/19 03:47 Seg Neutrophils # 4.8 K/mm3 (1.8-7.7) 03/06/20 03:37 Seg Neutrophils # Man 35.3 K/mm3 (1.8-7.7) H 12/25/19 03:47 Band Neutrophils # 0.0 K/mm3 12/25/19 03:47 Lymphocytes # (Manual) 0.4 K/mm3 (1.2-5.4) L 12/25/19 03:47 Abs React Lymphs (Man) 0.0 K/mm3 12/25/19 03:47 Monocytes # (Manual) 0.5 K/mm3 (0.0-0.8) 12/25/19 03:47 Eosinophils # (Manual) 0.0 K/mm3 (0.0-0.4) 12/25/19 03:47 Basophils # (Manual) 0.0 K/mm3 (0.0-0.1) 12/25/19 03:47 Metamyelocytes # 0.0 K/mm3 12/25/19 03:47 Myelocytes # 0.0 K/mm3 12/25/19 03:47 Promyelocytes # 0.0 K/mm3 12/25/19 03:47 Blast Cells # 0.0 K/mm3 12/25/19 03:47 Pathologist Review 12/13/19 07:48 WBC Morphology Not Reportable 12/25/19 03:47 Hypersegmented Neuts Not Reportable 12/25/19 03:47 Hyposegmented Neuts Not Reportable 12/25/19 03:47 Hypogranular Neuts Not Reportable 12/25/19 03:47 Smudge Cells Not Reportable 12/25/19 03:47 Toxic Granulation Not Reportable 12/25/19 03:47 Toxic Vacuolation Not Reportable 12/25/19 03:47 Dohle Bodies Not Reportable 12/25/19 03:47 Pelger-Huet Anomaly Not Reportable 12/25/19 03:47 Dominique Rods Not Reportable 12/25/19 03:47 Platelet Estimate Consistent w auto 12/25/19 03:47 Clumped Platelets Not Reportable 12/25/19 03:47 Plt Clumps, EDTA Not Reportable 12/25/19 03:47 Large Platelets Not Reportable 12/25/19 03:47 Giant Platelets Not Reportable 12/25/19 03:47 Platelet Satelliting Not Reportable 12/25/19 03:47 Plt Morphology Comment Not Reportable 12/25/19 03:47 RBC Morphology Not Reportable 12/25/19 03:47 Dimorphic RBCs Not Reportable 12/25/19 03:47 Polychromasia Not Reportable 12/25/19 03:47 Hypochromasia Not Reportable 12/25/19 03:47 Poikilocytosis Not Reportable 12/25/19 03:47 Anisocytosis 1+ 12/25/19 03:47 Microcytosis Not Reportable 12/25/19 03:47 Macrocytosis Not Reportable 12/25/19 03:47 Spherocytes Not Reportable 12/25/19 03:47 Pappenheimer Bodies Not Reportable 12/25/19 03:47 Sickle Cells Not Reportable 12/25/19 03:47 Target Cells Not Reportable 12/25/19 03:47 Tear Drop Cells Not Reportable 12/25/19 03:47 Ovalocytes Not Reportable 12/25/19 03:47 Helmet Cells Not Reportable 12/25/19 03:47 Frias-Hawthorne Bodies Not Reportable 12/25/19 03:47 [place] Rings Not Reportable 12/25/19 03:47 Jamshid Cells Not Reportable 12/25/19 03:47 Bite Cells Not Reportable 12/25/19 03:47 Crenated Cell Not Reportable 12/25/19 03:47 Elliptocytes Not Reportable 12/25/19 03:47 Acanthocytes (Spur) Not Reportable 12/25/19 03:47 Rouleaux Not Reportable 12/25/19 03:47 Hemoglobin C Crystals Not Reportable 12/25/19 03:47 Schistocytes Not Reportable 12/25/19 03:47 Malaria parasites Not Reportable 12/25/19 03:47 Gregg Bodies Not Reportable 12/25/19 03:47 Hem Pathologist Commnt No 12/25/19 03:47 PT 17.0 Sec. (12.2-14.9) H 11/23/19 03:47 INR 1.36 (0.87-1.13) H 11/23/19 03:47 APTT 128.2 Sec. (24.2-36.6) H* 11/23/19 03:47 Heparin Anti-Xa Level 0.31 U.I./ml (0.3-0.7) 11/23/19 09:03 ABG pH 7.433 pH Units (7.350-7.450) 03/08/20 13:25 ABG pCO2 40.2 mm Hg 03/08/20 13:25 ABG pO2 71.1 mm Hg (80.0-90.0) L 03/08/20 13:25 ABG HCO3 26.2 mmol/L (20.0-26.0) H 03/08/20 13:25 ABG O2 Saturation 97.0 % (95.0-99.0) 03/08/20 13:25 ABG O2 Content 11.0 (0.0-44) 03/08/20 13:25 ABG Base Excess 1.8 mmol/L (-2.0-3.0) 03/08/20 13:25 ABG Hemoglobin 8.2 gm/dl (12.0-16.0) L 03/08/20 13:25 ABG Carboxyhemoglobin 1.7 % (0.0-5.0) 03/08/20 13:25 ABG Methemoglobin 0.5 % (0.0-1.5) 03/08/20 13:25 Oxyhemoglobin 94.8 % (95.0-99.0) L 03/08/20 13:25 FiO2 21 % 03/08/20 13:25 Sodium 137 mmol/L (137-145) 03/13/20 03:50 Potassium 3.8 mmol/L (3.6-5.0) D 03/13/20 03:50 Chloride 103.1 mmol/L (98-107) 03/13/20 03:50 Carbon Dioxide 20 mmol/L (22-30) L 03/13/20 03:50 Anion Gap 18 mmol/L 03/13/20 03:50 BUN 30 mg/dL (7-17) H 03/13/20 03:50 Creatinine 0.6 mg/dL (0.7-1.2) L 03/13/20 03:50 Estimated GFR > 60 ml/min 03/13/20 03:50 BUN/Creatinine Ratio 50 % 03/13/20 03:50 Glucose 153 mg/dL (65-100) H 03/13/20 03:50 POC Glucose 104 (70-105) 03/15/20 06:23 Lactic Acid 1.80 mmol/L (0.7-2.0) 11/25/19 05:05 Calcium 10.0 mg/dL (8.4-10.2) 03/13/20 03:50 Ionized Calcium 4.5 mg/dL (4.8-5.6) L 11/23/19 06:32 Phosphorus 4.20 mg/dL (2.5-4.5) D 11/28/19 08:59 Magnesium 1.90 mg/dL (1.7-2.3) 02/28/20 03:40 Total Bilirubin 0.40 mg/dL (0.1-1.2) 12/13/19 07:48 AST 27 units/L (5-40) 12/13/19 07:48 ALT 26 units/L (7-56) 12/13/19 07:48 Alkaline Phosphatase 316 units/L (35-129) H 12/13/19 07:48 Ammonia 42.0 umol/L (25-60) 11/29/19 13:41 Total Creatine Kinase 139 units/L (30-135) H 11/22/19 23:27 CK-MB (CK-2) 8.3 ng/mL (0.0-4.0) H 11/22/19 23:27 CK-MB (CK-2) Rel Index 5.9 (0-4) H 11/22/19 23:27 Troponin T < 0.010 ng/mL (0.00-0.029) 11/22/19 23:27 Total Protein 6.8 g/dL (6.3-8.2) 12/13/19 07:48 Albumin 2.4 g/dL (3.9-5) L 12/13/19 07:48 Albumin/Globulin Ratio 0.5 % 12/13/19 07:48 Lipase 18 units/L (13-60) 11/23/19 00:34 Procalcitonin 1.09 ng/mL (<0.15) 11/23/19 04:53 TSH 1.010 mlU/mL (0.270-4.200) 02/12/20 07:36 Free T4 1.08 ng/dL (0.76-1.46) 02/12/20 07:36 Urine Color Yellow (Yellow) 12/16/19 Unknown Urine Turbidity Slightly-cloudy (Clear) 12/16/19 Unknown Urine pH 5.0 (5.0-7.0) 12/16/19 Unknown Ur Specific [place] 1.018 (1.003-1.030) 12/16/19 Unknown Urine Protein 30 mg/dl mg/dL (Negative) 12/16/19 Unknown Urine Glucose (UA) Neg mg/dL (Negative) 12/16/19 Unknown Urine Ketones Neg mg/dL (Negative) 12/16/19 Unknown Urine Blood Sm (Negative) 12/16/19 Unknown Urine Nitrite Neg (Negative) 12/16/19 Unknown Urine Bilirubin Neg (Negative) 12/16/19 Unknown Urine Urobilinogen < 2.0 mg/dL (<2.0) 12/16/19 Unknown Ur Leukocyte Esterase Neg (Negative) 12/16/19 Unknown Urine WBC (Auto) 6.0 /HPF (0.0-6.0) 12/16/19 Unknown Urine RBC (Auto) 9.0 /HPF (0.0-6.0) 12/16/19 Unknown U Epithel Cells (Auto) < 1.0 /HPF (0-13.0) 12/16/19 Unknown Urine Bacteria (Auto) 2+ /HPF (Negative) 11/22/19 23:17 Hyaline Casts 3 /LPF 12/16/19 Unknown Granular Casts 3 /LPF 12/16/19 Unknown Urine Mucus Few /HPF 12/16/19 Unknown Vancomycin Trough 33.8 ug/mL (5.0-20.0) H 12/21/19 08:56 Random Vancomycin 16.2 ug/mL (0-40.0) 12/24/19 04:31 Salicylates < 0.3 mg/dL (2.8-20.0) L 11/22/19 23:27 Urine Opiates Screen Presumptive negative 11/22/19 23:17 Urine Methadone Screen Presumptive negative 11/22/19 23:17 Acetaminophen < 5.0 ug/mL (10.0-30.0) L 11/22/19 23:27 Ur Barbiturates Screen Presumptive negative 11/22/19 23:17 Ur Phencyclidine Scrn Presumptive negative 11/22/19 23:17 Ur Amphetamines Screen Presumptive negative 11/22/19 23:17 U Benzodiazepines Scrn Presumptive negative 11/22/19 23:17 Urine Cocaine Screen Presumptive negative 11/22/19 23:17 U Marijuana (THC) Screen Presumptive negative 11/22/19 23:17 Drugs of Abuse Note Disclamer 11/22/19 23:17 Plasma/Serum Alcohol 0.08 % (0-0.07) H 11/22/19 23:27 Coronavirus (PCR) Negative (Negative) 02/05/20 07:50 Hepatitis A IgM Ab Non-reactive (NonReactive) 11/23/19 01:19 Hep Bs Antigen Non-reactive (Negative) 11/23/19 01:19 Hep B Core IgM Ab Non-reactive (NonReactive) 11/23/19 01:19 Hepatitis C Antibody Non-reactive (NonReactive) 11/23/19 01:19 Blood Type O POSITIVE 12/21/19 14:54 Antibody Screen Negative 12/21/19 14:54 Crossmatch See Detail 12/21/19 14:54 - Diagnostic Impressions Diagnostic Impressions: Echocardiogram 11/23/19 03:58 Transthoracic Echocardiogram Indication: Cardiac arrest BP: 131/89 HR: 115 Conclusions *The study quality is technically difficult. *Global left ventricular wall motion and contractility are within normal limits. *The estimated ejection fraction is 55-60%. *Abnormal left ventricular diastolic filling is observed, consistent with impaired relaxation. *There is no pericardial effusion. Findings Procedure Info: The study quality is technically difficult. The study was technically limited due to the patient's inability to lay in the left lateral decubitus position. Left Ventricle: The left ventricular chamber size is normal. There is no left ventricular hypertrophy. Global left ventricular wall motion and contractility are within normal limits. Global left ventricular systolic function is normal. The estimated ejection fraction is 55-60%. Abnormal left ventricular diastolic filling is observed, consistent with impaired relaxation. Left Atrium: The left atrial chamber size is normal. Aortic Valve: The aortic valve leaflets are mildly thickened. Mitral Valve: The mitral valve leaflets are mildly thickened. There is no evidence of mitral regurgitation. Tricuspid Valve: The tricuspid valve leaflets are normal. There is trace tricuspid regurgitation. The right ventricular systolic pressure is calculated at 33 mmHg. Pulmonic Valve: The pulmonic valve appears normal. Pericardium: The pericardium appears normal. There is no pericardial effusion. Aorta: The aorta appears normal. Venous: The inferior vena cava appears normal in size. Measurements Chambers 2D Name Value Normal Range IVSd (2D) 0.94 cm (0.6 - 1.1) LVPWd (2D) 0.81 cm (0.6 - 1.1) LVIDd (2D) 3.6 cm (3.7 - 5.6) LVIDs (2D) 2.27 cm (2 - 3.8) LV FS (2D) 36.93 % - EF Teichholz (2D) 67.76 % - Ao root diameter (2D) 3.03 cm (2 - 3.7) Volumes/Mass Name Value Normal Range LA ESV SP 4CH (A/L) 16.89 ml - LA ESV SP 4CH (MOD) 15.52 ml - Diastolic/Systolic Function Name Value Normal Range MV E-wave Vmax 0.55 m/sec - MV deceleration time 200.89 msec - MV A-wave Vmax 0.68 m/sec - MV E:A ratio 0.82 ratio - Aortic Valve Name Value Normal Range AV Vmax 1.1 m/sec - AV VTI 15.9 cm - AV peak gradient 4.86 mmHg - AV mean gradient 2.59 mmHg - LVOT diameter 2 cm - LVOT Vmax 1.03 m/sec - LVOT VTI 15.87 cm - LVOT peak gradient 4.24 mmHg - LVOT mean gradient 2.41 mmHg - SV LVOT 49.77 ml - JOSÉ MIGUEL (continuity Vmax) 2.93 cm2 - JOSÉ MIGUEL (continuity VTI) 3.13 cm2 - Tricuspid Valve Name Value Normal Range TR Vmax 2.74 m/sec - TR peak gradient 303 mmHg - RAP 3 mmHg - RVSP 33 mmHg - IVC diameter 1.77 cm (1.2 - 2.3) Pulmonic Valve/Qp:Qs Name Value Normal Range PV Vmax 0.77 m/sec - PV peak gradient 2.4 mmHg - PV acceleration time 114.18 msec - Echocardiogram Limited Views 12/17/19 14:53 Transthoracic Echocardiogram Indication: R/O Vegetations BP: 144/83 HR: 133 Conclusions *Global left ventricular systolic function is mildly decreased. *The estimated ejection fraction is 45-50%. *A trivial pericardial effusion is visualized. Findings Left Ventricle: The left ventricular chamber size is normal. Global left ventricular systolic function is mildly decreased. The estimated ejection fraction is 45-50%. Left Atrium: The left atrial chamber size is normal. Right Ventricle: The right ventricular cavity size is normal. Right Atrium: The right atrial cavity size is normal. Aortic Valve: The aortic valve is not well visualized. There is no evidence of aortic regurgitation. Mitral Valve: The mitral valve leaflets are mildly thickened. There is trace of mitral regurgitation. Tricuspid Valve: The tricuspid valve leaflets are mildly thickened. There is trace tricuspid regurgitation. The right ventricular systolic pressure is calculated at 29 mmHg. Pulmonic Valve: The pulmonic valve is not well visualized. There is no evidence of pulmonic regurgitation. Pericardium: A trivial pericardial effusion is visualized. Aorta: There is no dilatation of the ascending aorta. There is no dilatation of the aortic root. Venous: The inferior vena cava appears normal in size. There is a greater than 50% respiratory change in the inferior vena cava dimension. Measurements Chambers 2D Name Value Normal Range IVSd (2D) 0.83 cm (0.6 - 1.1) LVPWd (2D) 0.98 cm (0.6 - 1.1) LVIDd (2D) 3.71 cm (3.7 - 5.6) LVIDs (2D) 2.93 cm (2 - 3.8) LV FS (2D) 21.12 % - EF Teichholz (2D) 43.71 % - Ao root diameter (2D) 3.02 cm (2 - 3.7) Volumes/Mass Name Value Normal Range LA ESV SP 4CH (A/L) 36.8 ml - LA ESV SP 2CH (A/L) 45.89 ml - LA ESV BP (A/L) 42.35 ml - LA ESV BP (A/L) index 26.63 ml/m2 - LA ESV SP 4CH (MOD) 34.42 ml - LA ESV SP 2CH (MOD) 44.21 ml - LA ESV BP (MOD) 39.82 ml - LA ESV BP (MOD) index 25.05 ml/m2 - Aortic Valve Name Value Normal Range LVOT diameter 1.63 cm - Tricuspid Valve Name Value Normal Range TR Vmax 2.56 m/sec - TR peak gradient 26 mmHg - RAP 3 mmHg - RVSP 29 mmHg - IVC diameter 1.83 cm (1.2 - 2.3) Dela Cruz/IV: Voiding Method Incontinent IV Catheter Type [Forearm] Peripheral IV IV Catheter Type [Left Forearm INT / Saline Lock ] IV Catheter Type [Right INT / Saline Lock Antecubital] IV Catheter Type [Right Hand] Peripheral IV IV Catheter Type [Right Wrist] Peripheral IV IV Catheter Type [Left Wrist] Peripheral IV IV Catheter Type [Left Peripheral IV Antecubital] IV Catheter Type [Right INT / Saline Lock Forearm] IV Catheter Type [Left Hand] INT / Saline Lock Active Medications - Current Medications Current Medications: Generic Name Dose Route Start Last Admin Trade Name Freq PRN Reason Stop Dose Admin Acetaminophen 650 mg 12/06/19 10:25 03/13/20 20:36 Tylenol FEEDTUBE 650 mg Q6H PRN Administration TEMP >/=100.3 Acetylcysteine 200 mg 02/16/20 20:00 03/15/20 08:24 Mucomyst Inhalation INHALATION 200 mg Q12HRT LUCHO Administration Alprazolam 1 mg 02/21/20 18:24 03/13/20 20:35 Xanax PO 1 mg Q8H PRN Administration Anxiety Amoxicillin/Clavulanate Potassium 1 each 03/09/20 14:00 03/14/20 21:41 Augmentin 875 Mg PO 03/15/20 22:01 1 each Q12HR LUCHO Administration Lipase/Protease/Amylase 1 each 11/23/19 11:[address] 10,500 Unit FEEDTUBE PRN PRN Use w/ sod bicarb for FT Bisacodyl 10 mg 02/06/20 13:57 Dulcolax MN QDAY PRN Constipation unrelieved by MOM Docusate Sodium 100 mg 02/18/20 22:00 03/14/20 21:40 Colace FEEDTUBE 100 mg BID LUCHO Administration Enoxaparin Sodium 40 mg 03/07/20 22:00 03/14/20 21:40 Enoxaparin SUB-Q 40 mg QDAY@2200 LUCHO Administration Glycopyrrolate 2 mg 12/31/19 20:00 03/14/20 20:41 Robinul PO 2 mg TID LUCHO Administration Haloperidol Lactate 5 mg 03/05/20 09:22 03/14/20 17:23 Haldol IM 5 mg Q6H PRN Administration Agitation Hydralazine HCl 10 mg 11/24/19 00:45 03/03/20 05:57 Apresoline IV 10 mg Q6H PRN Administration SBP > 160 Hydroxyzine Pamoate 25 mg 12/06/19 10:00 03/14/20 21:41 Vistaril PO 25 mg BID LUCHO Administration Lansoprazole 30 mg 11/27/19 10:00 03/14/20 10:05 Prevacid Solutab FEEDTUBE 30 mg QDAY LUCHO Administration Levalbuterol HCl 0.63 mg 02/17/20 00:00 03/15/20 08:24 Xopenex IH 0.63 mg Q8HRT LUCHO Administration Levetiracetam 500 mg 11/29/19 10:00 03/14/20 21:41 Keppra PO 500 mg BID LUCHO Administration Metoprolol Tartrate 12.5 mg 02/23/20 22:00 03/14/20 21:41 Metoprolol PO 12.5 mg BID LUCHO Administration Mirtazapine 30 mg 12/06/19 10:00 03/14/20 10:05 Remeron PO 30 mg DAILY LUCHO Administration Nicotine 21 mg 02/16/20 13:00 03/14/20 10:06 Habitrol TD 21 mg QDAY LUCHO Administration Ondansetron HCl 4 mg 12/10/19 07:53 02/25/20 02:51 Zofran IV 4 mg Q4H PRN Administration Nausea And Vomiting Polyethylene Glycol 17 gm 02/06/20 13:57 Miralax 3350 PO QDAY PRN Constipation Quetiapine Fumarate 100 mg 03/06/20 10:00 03/14/20 21:41 Seroquel FEEDTUBE 100 mg BID LUCHO Administration Scopolamine 1 each 02/08/20 15:00 03/12/20 10:20 Transderm-Scop TD 1 each Q3D LUCHO Administration Sertraline HCl 25 mg 01/01/20 10:00 03/14/20 10:05 Zoloft PO 25 mg QDAY LUCHO Administration Simple Syrup 15 ml 11/23/19 11:50 Simple Syrup FEEDTUBE PRN PRN Hypoglycemia BG<70 Simple Syrup 30 ml 11/23/19 11:50 Simple Syrup FEEDTUBE PRN PRN Hypoglycemia Sodium Bicarbonate 325 mg 11/23/19 11:50 Sodium Bicarbonate FEEDTUBE PRN PRN For Clogged Feeding Tube Nutrition/Malnutrition Assess - Dietary Evaluation Nutrition/Malnutrition Findings: Nutrition Notes Start: 11/23/19 11:29 Freq: Status: Active Protocol: Document 03/13/20 14:31 LM (Rec: 03/13/20 14:32 LM [email or web address]) Nutrition Notes Initial or Follow up Reassessment Current Diagnosis Hypertension Other Pertinent Diagnosis Cardaic arrest, ETOH dependence, UTI Current Diet Jevity 1.2 at 60ml/hr Labs/Tests Reviewed Pertinent Medications Reviewed Height 5 ft 6 in Weight 46.7 kg Godwin Body Weight (kg) 59.09 BMI 16.6 Subjective/Other Information Pt tolerating TF at goal. Percent of energy/protein needs met: 97%/100% Burn Absent Trauma Absent GI Symptoms None Current % PO Negligible Interpretation of Weight Loss (severe) >2% in 1 week Muscle Mass Mild Depletion (non-severe) #2 Nutrition Diagnosis Malnutrition Diagnosis Progress(for reassessment Continues documentation) #1 Diagnosis Progress(for reassessment Continues documentation) Is patient on ventilator? No Is Patient Ambulatory and/or Out of Bed No REE-([facility]-confined to bed) 1305.120 Kcal/Kg value to use for calculation 38 Approximate Energy Requirements Using 1775 kcal/Kg Calculation Used for Recommendations Kcal/kg Additional Notes Protein: 60-75g (1.2-1.5g/kg) Fluid: 1 ml/kcal Nutrition Intervention Change Diet Order: Continue TF Nutrition Support: Jevity 1.2 at 60ml/hr Flush 100ml q4h Kcal 1,728 Protein (gm) 80 Fluid (mL) 1,162 Goal #1 TF tolerance Goal #2 Meet at least 80% of energy and protein needs via TF Goal #3 Wt gain/maintenacne Anticipated Discharge Needs: TF Follow-Up By: 03/20/20 Additional Comments F/U for TF tolerance
[2020-03-15] MEDS: DOCUSATE SODIUM 100 MG/10 ML ORAL LIQD FEEDTUBE SCH ×2 (09:33→21:46)
[2020-03-15] MEDS: LANSOPRAZOLE 30 MG SOLUTAB FEEDTUBE SCH (09:33)
[2020-03-15] MEDS: SERTRALINE 50 MG TAB PO SCH (09:33)
[2020-03-15] MEDS: levETIRAcetam 500 MG/5 ML ORAL LIQD PO SCH ×2 (09:33→21:47)
[2020-03-15] MEDS: METOPROLOL TARTRATE 25 MG TAB PO SCH ×2 (09:34→21:46)
[2020-03-15] MEDS: QUEtiapine 100 MG TAB FEEDTUBE SCH ×2 (09:34→21:47)
[2020-03-15] MEDS: hydrOXYzine PAMOATE 25 MG CAP PO SCH ×2 (09:35→21:46)
[2020-03-15] MEDS: AMOXICILLIN/K CLAV 875/125MG TAB PO SCH ×2 (09:35→21:46)
[2020-03-15] MEDS: MIRTAZAPINE 30 MG TAB PO SCH (09:35)
[2020-03-15] MEDS: SCOPOLAMINE TRANSDERMAL PATCH 72 HR TD SCH (09:36)
[2020-03-15] MEDS: NICOTINE 21 MG/24 HR PATCH TD SCH (09:36)
--- NOTE | 2020-03-15 15:51 | Progress Note ---
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 motility - Continue VTE and Stress ulcer prophylaxis - Continue enteric nutritional support - Monitor glycemic control, with target blood glucose 140-180 mg/dL while critically ill (Avoid hypoglycemia) - ABG and CXR prn - Continue to avoid nephrotoxins, adjust all medications fro GFR and CrCL - Continue to avoid benzodiazepines , as much as possible, to reduce the possibility of delirium - Continue prn analgesia per CPOT score - Continue to maintain of sleep-wake cycle, avoid delirium - PT/OT/ROM exercises- awaiting PT/OT evaluation - Continue mobility protocol and skin assessment per protocol for pressure ulcer prevention - Continue to monitor for clinical seizures - Continue Nicotine withdrawal precautions, alcohol withdrawal precautions - continue other care per attending / other consultants - continue discharge planning ..... re-evaluate in am & prn CONDITION: STABLE PROGNOSIS: IMPROVED CODE STATUS: FULL CODE Subjective Date of service: 03/15/20 Principal diagnosis: Ac cardiopulmonary arrest; Ac hypoxemic resp failure; Acute encephalopathy Interval history: Patient is seen today for: Acute cardiopulmonary arrest with ROSC; Acute hypoxemic respiratory failure; Acute metabolic-toxic encephalopathy; Ischemic hepatitis; Leucocytosis with lactic acidosis; Tobacco use disorder; Alcohol use Disorder; Hypokalemia; High grade fevers Seen and examined at bedside; 24hour events reviewed; nursing and respiratory care staff consulted; no adverse overnight events reported to me; resting peacefully in bed; secretions overall improved; tolerated PMV at bedside; remains emotionally labile and ? delirious Objective Vital Signs - 12hr 03/15/20 03/15/20 03/15/20 06:03 08:20 08:25 Temperature 97.6 F 98.1 F Pulse Rate 77 96 H Pulse Rate [ 89 Anterior Bilateral Throughout] Pulse Rate [ 86 Apical] Respiratory 18 18 17 Rate Respiratory 20 Rate [Anterior Bilateral Throughout] Blood Pressure 158/92 116/81 O2 Sat by Pulse 100 100 100 Oximetry O2 Sat by Pulse 95 Oximetry [ Assessment] 03/15/20 03/15/20 03/15/20 08:27 09:32 09:34 Temperature Pulse Rate 95 H 88 Pulse Rate [ Anterior Bilateral Throughout] Pulse Rate [ Apical] Respiratory Rate Respiratory Rate [Anterior Bilateral Throughout] Blood Pressure 142/86 142/86 O2 Sat by Pulse 95 100 Oximetry O2 Sat by Pulse Oximetry [ Assessment] Constitutional: no acute distress, other (cachectic 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, with midline tracheostomy and with normal respiratory effort at rest) Eyes: non-icteric ENT: oropharynx moist, other (s/p trach) Neck: supple, no lymphadenopathy, no JVD Effort: normal Ascultation: Bilateral: diminished breath sounds, rhonchi Percussion: Bilateral: not dull Cardiovascular: regular rate and rhythm (tachycardia), other (S1,S2) Gastrointestinal: normoactive bowel sounds, soft, non-tender, non-distended Integumentary: normal Extremities: no cyanosis, no edema, pulses normal, no ischemia or petechiae Neurologic: normal mental status, non-focal exam, pupils equal and round, CN II- XII normal, motor strength normal and Psychiatric: anxious CBC and BMP: 03/12/20 04:53 03/13/20 03:50 ABG, PT/INR, D-dimer: ABG ABG pH 7.433 pH Units (7.350-7.450) 03/08/20 13:25 ABG pCO2 40.2 mm Hg 03/08/20 13:25 ABG pO2 71.1 mm Hg (80.0-90.0) L 03/08/20 13:25 ABG O2 Saturation 97.0 % (95.0-99.0) 03/08/20 13:25 PT/INR, D-dimer PT 17.0 Sec. (12.2-14.9) H 11/23/19 03:47 INR 1.36 (0.87-1.13) H 11/23/19 03:47 Abnormal lab findings: Abnormal Labs 11/22/19 11/22/19 11/22/19 23:17 23:18 23:27 WBC 21.2 H RBC 3.59 L Hgb 9.8 L Hct MCH 27 L RDW 18.6 H Plt Count 454 H Lymph % (Auto) [place] % (Auto) [place] # Baso # Seg Neutrophils % Seg Neuts % (Manual) 86.0 H Lymphocytes % (Manual) 9.0 L Monocytes % (Manual) Seg Neutrophils # Seg Neutrophils # Man 18.2 H Lymphocytes # (Manual) Monocytes # (Manual) 1.1 H Eosinophils # (Manual) Basophils # (Manual) PT INR APTT ABG pH ABG pO2 ABG HCO3 ABG O2 Saturation ABG Base Excess ABG Hemoglobin Oxyhemoglobin Sodium Potassium Chloride Carbon Dioxide BUN Creatinine Glucose POC Glucose 53 L Lactic Acid Calcium Ionized Calcium Phosphorus Magnesium Total Bilirubin AST ALT Alkaline Phosphatase Ammonia Total Creatine Kinase CK-MB (CK-2) CK-MB (CK-2) Rel Index Total Protein Albumin Urine WBC (Auto) 40.0 H Vancomycin Trough Salicylates Acetaminophen Plasma/Serum Alcohol Crossmatch 11/22/19 11/22/19 11/22/19 23:27 23:27 23:27 WBC RBC Hgb Hct MCH RDW Plt Count Lymph % (Auto) [place] % (Auto) [place] # Baso # Seg Neutrophils % Seg Neuts % (Manual) Lymphocytes % (Manual) Monocytes % (Manual) Seg Neutrophils # Seg Neutrophils # Man Lymphocytes # (Manual) Monocytes # (Manual) Eosinophils # (Manual) Basophils # (Manual) PT INR APTT ABG pH ABG pO2 ABG HCO3 ABG O2 Saturation ABG Base Excess ABG Hemoglobin Oxyhemoglobin Sodium Potassium 2.4 L* Chloride 85.1 L Carbon Dioxide 19 L BUN Creatinine 0.5 L Glucose 261 H POC Glucose Lactic Acid Calcium Ionized Calcium Phosphorus Magnesium Total Bilirubin AST 609 H ALT 152 H Alkaline Phosphatase 160 H Ammonia 117.0 H Total Creatine Kinase 139 H CK-MB (CK-2) 8.3 H CK-MB (CK-2) Rel Index 5.9 H Total Protein Albumin 3.6 L Urine WBC (Auto) Vancomycin Trough Salicylates < 0.3 L Acetaminophen Plasma/Serum Alcohol Crossmatch 11/22/19 11/22/19 11/23/19 23:27 23:27 01:10 WBC RBC Hgb Hct MCH RDW Plt Count Lymph % (Auto) [place] % (Auto) [place] # Baso # Seg Neutrophils % Seg Neuts % (Manual) Lymphocytes % (Manual) Monocytes % (Manual) Seg Neutrophils # Seg Neutrophils # Man Lymphocytes # (Manual) Monocytes # (Manual) Eosinophils # (Manual) Basophils # (Manual) PT INR APTT ABG pH 7.273 L ABG pO2 209.7 H ABG HCO3 ABG O2 Saturation 99.2 H ABG Base Excess -3.9 L ABG Hemoglobin 10.6 L Oxyhemoglobin 93.9 L Sodium Potassium Chloride Carbon Dioxide BUN Creatinine Glucose POC Glucose Lactic Acid Calcium Ionized Calcium Phosphorus Magnesium Total Bilirubin AST ALT Alkaline Phosphatase Ammonia Total Creatine Kinase CK-MB (CK-2) CK-MB (CK-2) Rel Index Total Protein Albumin Urine WBC (Auto) Vancomycin Trough Salicylates Acetaminophen < 5.0 L Plasma/Serum Alcohol 0.08 H Crossmatch 11/23/19 11/23/19 11/23/19 01:19 01:19 03:47 WBC RBC Hgb Hct MCH RDW Plt Count Lymph % (Auto) [place] % (Auto) [place] # Baso # Seg Neutrophils % Seg Neuts % (Manual) Lymphocytes % (Manual) Monocytes % (Manual) Seg Neutrophils # Seg Neutrophils # Man Lymphocytes # (Manual) Monocytes # (Manual) Eosinophils # (Manual) Basophils # (Manual) PT 16.3 H INR 1.29 H APTT ABG pH ABG pO2 ABG HCO3 ABG O2 Saturation ABG Base Excess ABG Hemoglobin Oxyhemoglobin Sodium Potassium Chloride Carbon Dioxide BUN Creatinine Glucose POC Glucose Lactic Acid 2.10 H* 5.00 H* Calcium Ionized Calcium Phosphorus Magnesium Total Bilirubin AST ALT Alkaline Phosphatase Ammonia Total Creatine Kinase CK-MB (CK-2) CK-MB (CK-2) Rel Index Total Protein Albumin Urine WBC (Auto) Vancomycin Trough Salicylates Acetaminophen Plasma/Serum Alcohol Crossmatch 11/23/19 11/23/19 11/23/19 03:47 03:47 04:53 WBC RBC Hgb 9.4 L Hct MCH RDW Plt Count Lymph % (Auto) [place] % (Auto) [place] # Baso # Seg Neutrophils % Seg Neuts % (Manual) Lymphocytes % (Manual) Monocytes % (Manual) Seg Neutrophils # Seg Neutrophils # Man Lymphocytes # (Manual) Monocytes # (Manual) Eosinophils # (Manual) Basophils # (Manual) PT 17.0 H INR 1.36 H APTT 128.2 H* ABG pH ABG pO2 ABG HCO3 ABG O2 Saturation ABG Base Excess ABG Hemoglobin Oxyhemoglobin Sodium Potassium Chloride Carbon Dioxide 18 L BUN Creatinine 0.5 L Glucose 105 H POC Glucose Lactic Acid Calcium 8.3 L Ionized Calcium Phosphorus 2.40 L Magnesium Total Bilirubin 1.30 H AST 761 H ALT 158 H Alkaline Phosphatase 143 H Ammonia Total Creatine Kinase CK-MB (CK-2) CK-MB (CK-2) Rel Index Total Protein Albumin 2.8 L Urine WBC (Auto) Vancomycin Trough Salicylates Acetaminophen Plasma/Serum Alcohol Crossmatch 11/23/19 11/23/19 11/23/19 05:12 06:32 06:32 WBC 16.8 H RBC 3.31 L Hgb 8.9 L Hct 28.7 L MCH 27 L RDW 18.6 H Plt Count Lymph % (Auto) [place] % (Auto) [place] # Baso # Seg Neutrophils % Seg Neuts % (Manual) 94.0 H Lymphocytes % (Manual) 1.0 L Monocytes % (Manual) Seg Neutrophils # Seg Neutrophils # Man 15.8 H Lymphocytes # (Manual) 0.2 L Monocytes # (Manual) Eosinophils # (Manual) Basophils # (Manual) PT INR APTT ABG pH ABG pO2 ABG HCO3 ABG O2 Saturation ABG Base Excess -3.2 L ABG Hemoglobin 9.0 L Oxyhemoglobin 93.6 L Sodium Potassium Chloride Carbon Dioxide BUN Creatinine Glucose POC Glucose Lactic Acid Calcium Ionized Calcium 4.5 L Phosphorus Magnesium Total Bilirubin AST ALT Alkaline Phosphatase Ammonia Total Creatine Kinase CK-MB (CK-2) CK-MB (CK-2) Rel Index Total Protein Albumin Urine WBC (Auto) Vancomycin Trough Salicylates Acetaminophen Plasma/Serum Alcohol Crossmatch 11/23/19 11/24/19 11/24/19 06:32 04:35 04:35 WBC RBC Hgb Hct MCH RDW Plt Count Lymph % (Auto) [place] % (Auto) [place] # Baso # Seg Neutrophils % Seg Neuts % (Manual) Lymphocytes % (Manual) Monocytes % (Manual) Seg Neutrophils # Seg Neutrophils # Man Lymphocytes # (Manual) Monocytes # (Manual) Eosinophils # (Manual) Basophils # (Manual) PT INR APTT ABG pH ABG pO2 ABG HCO3 ABG O2 Saturation ABG Base Excess ABG Hemoglobin Oxyhemoglobin Sodium Potassium Chloride Carbon Dioxide BUN Creatinine Glucose POC Glucose Lactic Acid 3.30 H* Calcium Ionized Calcium Phosphorus Magnesium 1.40 L Total Bilirubin AST ALT Alkaline Phosphatase Ammonia 98.0 H Total Creatine Kinase CK-MB (CK-2) CK-MB (CK-2) Rel Index Total Protein Albumin Urine WBC (Auto) Vancomycin Trough Salicylates Acetaminophen Plasma/Serum Alcohol Crossmatch 11/24/19 11/25/19 11/25/19 05:22 04:34 05:05 WBC 17.3 H RBC 2.88 L Hgb 7.8 L Hct 24.6 L MCH 27 L RDW 18.5 H Plt Count Lymph % (Auto) 7.7 L [place] % (Auto) 9.7 H [place] # 1.7 H Baso # Seg Neutrophils % 82.2 H Seg Neuts % (Manual) Lymphocytes % (Manual) Monocytes % (Manual) Seg Neutrophils # 14.2 H Seg Neutrophils # Man Lymphocytes # (Manual) Monocytes # (Manual) Eosinophils # (Manual) Basophils # (Manual) PT INR APTT ABG pH 7.475 H ABG pO2 ABG HCO3 29.4 H 32.3 H ABG O2 Saturation ABG Base Excess 5.4 H 6.9 H ABG Hemoglobin 9.0 L 10.6 L Oxyhemoglobin 94.3 L Sodium Potassium Chloride Carbon Dioxide BUN Creatinine Glucose POC Glucose Lactic Acid Calcium Ionized Calcium Phosphorus Magnesium Total Bilirubin AST ALT Alkaline Phosphatase Ammonia Total Creatine Kinase CK-MB (CK-2) CK-MB (CK-2) Rel Index Total Protein Albumin Urine WBC (Auto) Vancomycin Trough Salicylates Acetaminophen Plasma/Serum Alcohol Crossmatch 11/25/19 11/25/19 11/26/19 05:05 22:46 03:31 WBC RBC Hgb Hct MCH RDW Plt Count Lymph % (Auto) [place] % (Auto) [place] # Baso # Seg Neutrophils % Seg Neuts % (Manual) Lymphocytes % (Manual) Monocytes % (Manual) Seg Neutrophils # Seg Neutrophils # Man Lymphocytes # (Manual) Monocytes # (Manual) Eosinophils # (Manual) Basophils # (Manual) PT INR APTT ABG pH 7.459 H ABG pO2 ABG HCO3 34.2 H ABG O2 Saturation ABG Base Excess 9.4 H ABG Hemoglobin 7.6 L Oxyhemoglobin 94.8 L Sodium 152 H D 147 H Potassium 2.3 L* D 2.8 L* D Chloride 107.8 H Carbon Dioxide 31 H D 33 H BUN Creatinine 0.6 L 0.6 L Glucose 148 H 177 H POC Glucose Lactic Acid Calcium Ionized Calcium Phosphorus Magnesium Total Bilirubin AST 105 H ALT 71 H Alkaline Phosphatase 155 H Ammonia Total Creatine Kinase CK-MB (CK-2) CK-MB (CK-2) Rel Index Total Protein 5.2 L D Albumin 2.9 L Urine WBC (Auto) Vancomycin Trough Salicylates Acetaminophen Plasma/Serum Alcohol Crossmatch 11/26/19 11/26/19 11/27/19 08:24 08:24 04:20 WBC 12.0 H RBC 3.00 L Hgb 8.0 L 9.3 L Hct 25.9 L 29.7 L MCH 27 L RDW 18.5 H Plt Count Lymph % (Auto) [place] % (Auto) [place] # Baso # Seg Neutrophils % Seg Neuts % (Manual) 89.0 H Lymphocytes % (Manual) 4.0 L Monocytes % (Manual) Seg Neutrophils # Seg Neutrophils # Man 10.7 H Lymphocytes # (Manual) 0.5 L Monocytes # (Manual) Eosinophils # (Manual) Basophils # (Manual) PT INR APTT ABG pH ABG pO2 ABG HCO3 ABG O2 Saturation ABG Base Excess ABG Hemoglobin Oxyhemoglobin Sodium 146 H Potassium 3.4 L D Chloride Carbon Dioxide BUN Creatinine 0.5 L Glucose 165 H POC Glucose Lactic Acid Calcium Ionized Calcium Phosphorus Magnesium Total Bilirubin AST 57 H ALT Alkaline Phosphatase 166 H Ammonia Total Creatine Kinase CK-MB (CK-2) CK-MB (CK-2) Rel Index Total Protein Albumin 2.9 L Urine WBC (Auto) Vancomycin Trough Salicylates Acetaminophen Plasma/Serum Alcohol Crossmatch 11/27/19 11/27/19 11/27/19 04:28 04:28 04:42 WBC RBC Hgb Hct MCH RDW Plt Count Lymph % (Auto) [place] % (Auto) [place] # Baso # Seg Neutrophils % Seg Neuts % (Manual) Lymphocytes % (Manual) Monocytes % (Manual) Seg Neutrophils # Seg Neutrophils # Man Lymphocytes # (Manual) Monocytes # (Manual) Eosinophils # (Manual) Basophils # (Manual) PT INR APTT ABG pH 7.470 H ABG pO2 74.0 L ABG HCO3 33.8 H ABG O2 Saturation ABG Base Excess 9.1 H ABG Hemoglobin 8.7 L Oxyhemoglobin 94.7 L Sodium 146 H Potassium 2.9 L* Chloride Carbon Dioxide BUN 25 H Creatinine Glucose 213 H POC Glucose Lactic Acid Calcium Ionized Calcium Phosphorus 1.00 L Magnesium Total Bilirubin AST ALT Alkaline Phosphatase Ammonia Total Creatine Kinase CK-MB (CK-2) CK-MB (CK-2) Rel Index Total Protein Albumin Urine WBC (Auto) Vancomycin Trough Salicylates Acetaminophen Plasma/Serum Alcohol Crossmatch 11/27/19 11/27/19 11/27/19 05:37 12:20 15:46 WBC RBC Hgb Hct MCH RDW Plt Count Lymph % (Auto) [place] % (Auto) [place] # Baso # Seg Neutrophils % Seg Neuts % (Manual) Lymphocytes % (Manual) Monocytes % (Manual) Seg Neutrophils # Seg Neutrophils # Man Lymphocytes # (Manual) Monocytes # (Manual) Eosinophils # (Manual) Basophils # (Manual) PT INR APTT ABG pH ABG pO2 ABG HCO3 ABG O2 Saturation ABG Base Excess ABG Hemoglobin Oxyhemoglobin Sodium 146 H Potassium 3.5 L D Chloride Carbon Dioxide BUN 24 H Creatinine 0.6 L Glucose 187 H POC Glucose 117 H 220 H Lactic Acid Calcium Ionized Calcium Phosphorus Magnesium Total Bilirubin AST ALT Alkaline Phosphatase Ammonia Total Creatine Kinase CK-MB (CK-2) CK-MB (CK-2) Rel Index Total Protein Albumin Urine WBC (Auto) Vancomycin Trough Salicylates Acetaminophen Plasma/Serum Alcohol Crossmatch 11/27/19 11/28/19 11/28/19 17:28 05:00 05:02 WBC RBC Hgb Hct MCH RDW Plt Count Lymph % (Auto) [place] % (Auto) [place] # Baso # Seg Neutrophils % Seg Neuts % (Manual) Lymphocytes % (Manual) Monocytes % (Manual) Seg Neutrophils # Seg Neutrophils # Man Lymphocytes # (Manual) Monocytes # (Manual) Eosinophils # (Manual) Basophils # (Manual) PT INR APTT ABG pH ABG pO2 72.4 L ABG HCO3 33.6 H ABG O2 Saturation 94.1 L ABG Base Excess 7.3 H ABG Hemoglobin Oxyhemoglobin 91.8 L Sodium 146 H Potassium 3.3 L Chloride Carbon Dioxide BUN 25 H Creatinine 0.6 L Glucose 176 H POC Glucose 198 H Lactic Acid Calcium Ionized Calcium Phosphorus Magnesium Total Bilirubin AST ALT Alkaline Phosphatase Ammonia Total Creatine Kinase CK-MB (CK-2) CK-MB (CK-2) Rel Index Total Protein Albumin Urine WBC (Auto) Vancomycin Trough Salicylates Acetaminophen Plasma/Serum Alcohol Crossmatch 11/28/19 11/28/19 11/29/19 05:02 18:55 10:43 WBC 15.2 H 19.0 H RBC 3.06 L 3.01 L Hgb 8.3 L 8.3 L Hct 27.0 L 26.4 L MCH 27 L RDW 19.0 H 19.7 H Plt Count 479 H 611 H Lymph % (Auto) [place] % (Auto) [place] # Baso # Seg Neutrophils % Seg Neuts % (Manual) 92.0 H Lymphocytes % (Manual) 2.0 L Monocytes % (Manual) Seg Neutrophils # Seg Neutrophils # Man 14.0 H Lymphocytes # (Manual) 0.3 L Monocytes # (Manual) Eosinophils # (Manual) Basophils # (Manual) PT INR APTT ABG pH ABG pO2 ABG HCO3 ABG O2 Saturation ABG Base Excess ABG Hemoglobin Oxyhemoglobin Sodium Potassium Chloride Carbon Dioxide BUN Creatinine Glucose POC Glucose 138 H Lactic Acid Calcium Ionized Calcium Phosphorus Magnesium Total Bilirubin AST ALT Alkaline Phosphatase Ammonia Total Creatine Kinase CK-MB (CK-2) CK-MB (CK-2) Rel Index Total Protein Albumin Urine WBC (Auto) Vancomycin Trough Salicylates Acetaminophen Plasma/Serum Alcohol Crossmatch 11/29/19 11/29/19 11/29/19 10:43 12:27 19:25 WBC RBC Hgb Hct MCH RDW Plt Count Lymph % (Auto) [place] % (Auto) [place] # Baso # Seg Neutrophils % Seg Neuts % (Manual) Lymphocytes % (Manual) Monocytes % (Manual) Seg Neutrophils # Seg Neutrophils # Man Lymphocytes # (Manual) Monocytes # (Manual) Eosinophils # (Manual) Basophils # (Manual) PT INR APTT ABG pH ABG pO2 ABG HCO3 ABG O2 Saturation ABG Base Excess ABG Hemoglobin Oxyhemoglobin Sodium Potassium 2.8 L* Chloride Carbon Dioxide BUN 20 H Creatinine 0.5 L Glucose 121 H POC Glucose 128 H 120 H Lactic Acid Calcium Ionized Calcium Phosphorus Magnesium Total Bilirubin AST ALT Alkaline Phosphatase Ammonia Total Creatine Kinase CK-MB (CK-2) CK-MB (CK-2) Rel Index Total Protein Albumin Urine WBC (Auto) Vancomycin Trough Salicylates Acetaminophen Plasma/Serum Alcohol Crossmatch 11/29/19 11/30/19 11/30/19 23:46 04:10 05:02 WBC RBC Hgb Hct MCH RDW Plt Count Lymph % (Auto) [place] % (Auto) [place] # Baso # Seg Neutrophils % Seg Neuts % (Manual) Lymphocytes % (Manual) Monocytes % (Manual) Seg Neutrophils # Seg Neutrophils # Man Lymphocytes # (Manual) Monocytes # (Manual) Eosinophils # (Manual) Basophils # (Manual) PT INR APTT ABG pH ABG pO2 76.3 L ABG HCO3 32.5 H ABG O2 Saturation ABG Base Excess 6.9 H ABG Hemoglobin 8.0 L Oxyhemoglobin 92.6 L Sodium Potassium Chloride Carbon Dioxide BUN Creatinine Glucose POC Glucose 116 H 128 H Lactic Acid Calcium Ionized Calcium Phosphorus Magnesium Total Bilirubin AST ALT Alkaline Phosphatase Ammonia Total Creatine Kinase CK-MB (CK-2) CK-MB (CK-2) Rel Index Total Protein Albumin Urine WBC (Auto) Vancomycin Trough Salicylates Acetaminophen Plasma/Serum Alcohol Crossmatch 11/30/19 11/30/19 11/30/19 05:25 05:25 12:59 WBC 18.4 H RBC 3.10 L Hgb 8.5 L Hct 27.5 L MCH 27 L RDW 20.9 H Plt Count 691 H Lymph % (Auto) 7.1 L [place] % (Auto) 7.7 H [place] # 1.4 H Baso # Seg Neutrophils % 83.4 H Seg Neuts % (Manual) Lymphocytes % (Manual) Monocytes % (Manual) Seg Neutrophils # 15.4 H Seg Neutrophils # Man Lymphocytes # (Manual) Monocytes # (Manual) Eosinophils # (Manual) Basophils # (Manual) PT INR APTT ABG pH ABG pO2 ABG HCO3 ABG O2 Saturation ABG Base Excess ABG Hemoglobin Oxyhemoglobin Sodium 146 H Potassium Chloride 107.2 H Carbon Dioxide BUN Creatinine 0.5 L Glucose 132 H POC Glucose 124 H Lactic Acid Calcium Ionized Calcium Phosphorus Magnesium Total Bilirubin AST 246 H ALT 274 H Alkaline Phosphatase 203 H Ammonia Total Creatine Kinase CK-MB (CK-2) CK-MB (CK-2) Rel Index Total Protein 5.4 L Albumin 2.9 L Urine WBC (Auto) Vancomycin Trough Salicylates Acetaminophen Plasma/Serum Alcohol Crossmatch 11/30/19 12/01/19 12/01/19 17:53 00:05 05:10 WBC RBC Hgb Hct MCH RDW Plt Count Lymph % (Auto) [place] % (Auto) [place] # Baso # Seg Neutrophils % Seg Neuts % (Manual) Lymphocytes % (Manual) Monocytes % (Manual) Seg Neutrophils # Seg Neutrophils # Man Lymphocytes # (Manual) Monocytes # (Manual) Eosinophils # (Manual) Basophils # (Manual) PT INR APTT ABG pH ABG pO2 ABG HCO3 ABG O2 Saturation ABG Base Excess ABG Hemoglobin Oxyhemoglobin Sodium Potassium Chloride Carbon Dioxide BUN Creatinine Glucose POC Glucose 113 H 143 H 145 H Lactic Acid Calcium Ionized Calcium Phosphorus Magnesium Total Bilirubin AST ALT Alkaline Phosphatase Ammonia Total Creatine Kinase CK-MB (CK-2) CK-MB (CK-2) Rel Index Total Protein Albumin Urine WBC (Auto) Vancomycin Trough Salicylates Acetaminophen Plasma/Serum Alcohol Crossmatch 12/01/19 12/01/19 12/01/19 05:33 08:23 08:23 WBC 22.7 H RBC 2.88 L Hgb 7.9 L Hct 25.2 L MCH 27 L RDW 21.0 H Plt Count 732 H Lymph % (Auto) [place] % (Auto) [place] # Baso # Seg Neutrophils % Seg Neuts % (Manual) 91.0 H Lymphocytes % (Manual) 3.0 L Monocytes % (Manual) Seg Neutrophils # Seg Neutrophils # Man 20.7 H Lymphocytes # (Manual) 0.7 L Monocytes # (Manual) 1.1 H Eosinophils # (Manual) Basophils # (Manual) PT INR APTT ABG pH ABG pO2 68.6 L ABG HCO3 34.1 H ABG O2 Saturation ABG Base Excess 9.0 H ABG Hemoglobin 6.5 L Oxyhemoglobin 94.7 L Sodium Potassium Chloride Carbon Dioxide BUN Creatinine 0.5 L Glucose 125 H POC Glucose Lactic Acid Calcium Ionized Calcium Phosphorus Magnesium Total Bilirubin AST ALT Alkaline Phosphatase Ammonia Total Creatine Kinase CK-MB (CK-2) CK-MB (CK-2) Rel Index Total Protein Albumin Urine WBC (Auto) Vancomycin Trough Salicylates Acetaminophen Plasma/Serum Alcohol Crossmatch 12/01/19 12/01/19 12/01/19 13:21 17:54 20:59 WBC RBC Hgb Hct MCH RDW Plt Count Lymph % (Auto) [place] % (Auto) [place] # Baso # Seg Neutrophils % Seg Neuts % (Manual) Lymphocytes % (Manual) Monocytes % (Manual) Seg Neutrophils # Seg Neutrophils # Man Lymphocytes # (Manual) Monocytes # (Manual) Eosinophils # (Manual) Basophils # (Manual) PT INR APTT ABG pH ABG pO2 78.3 L ABG HCO3 33.8 H ABG O2 Saturation 94.9 L ABG Base Excess 7.9 H ABG Hemoglobin 11.5 L Oxyhemoglobin 92.3 L Sodium Potassium Chloride Carbon Dioxide BUN Creatinine Glucose POC Glucose 111 H 115 H Lactic Acid Calcium Ionized Calcium Phosphorus Magnesium Total Bilirubin AST ALT Alkaline Phosphatase Ammonia Total Creatine Kinase CK-MB (CK-2) CK-MB (CK-2) Rel Index Total Protein Albumin Urine WBC (Auto) Vancomycin Trough Salicylates Acetaminophen Plasma/Serum Alcohol Crossmatch 12/02/19 12/03/19 12/04/19 12:55 20:00 04:26 WBC 15.2 H RBC 2.69 L Hgb 7.4 L Hct 23.6 L MCH 27 L RDW 19.9 H Plt Count 838 H Lymph % (Auto) [place] % (Auto) [place] # Baso # Seg Neutrophils % Seg Neuts % (Manual) Lymphocytes % (Manual) Monocytes % (Manual) Seg Neutrophils # Seg Neutrophils # Man Lymphocytes # (Manual) Monocytes # (Manual) Eosinophils # (Manual) Basophils # (Manual) PT INR APTT ABG pH ABG pO2 68.3 L ABG HCO3 33.5 H ABG O2 Saturation 93.5 L ABG Base Excess 8.4 H ABG Hemoglobin 7.3 L Oxyhemoglobin 90.9 L Sodium Potassium Chloride Carbon Dioxide BUN Creatinine Glucose POC Glucose 107 H Lactic Acid Calcium Ionized Calcium Phosphorus Magnesium Total Bilirubin AST ALT Alkaline Phosphatase Ammonia Total Creatine Kinase CK-MB (CK-2) CK-MB (CK-2) Rel Index Total Protein Albumin Urine WBC (Auto) Vancomycin Trough Salicylates Acetaminophen Plasma/Serum Alcohol Crossmatch 12/04/19 12/04/19 12/04/19 04:26 07:45 12:02 WBC 15.9 H RBC 2.88 L Hgb 7.9 L Hct 25.1 L MCH RDW 20.4 H Plt Count 839 H Lymph % (Auto) 11.3 L [place] % (Auto) 15.2 H [place] # 2.4 H Baso # Seg Neutrophils % 72.4 H Seg Neuts % (Manual) Lymphocytes % (Manual) Monocytes % (Manual) Seg Neutrophils # 11.5 H Seg Neutrophils # Man Lymphocytes # (Manual) Monocytes # (Manual) Eosinophils # (Manual) Basophils # (Manual) PT INR APTT ABG pH ABG pO2 ABG HCO3 ABG O2 Saturation ABG Base Excess ABG Hemoglobin Oxyhemoglobin Sodium Potassium Chloride 96.5 L Carbon Dioxide BUN 21 H Creatinine 0.6 L Glucose 107 H POC Glucose 138 H Lactic Acid Calcium Ionized Calcium Phosphorus Magnesium Total Bilirubin AST ALT Alkaline Phosphatase Ammonia Total Creatine Kinase CK-MB (CK-2) CK-MB (CK-2) Rel Index Total Protein Albumin Urine WBC (Auto) Vancomycin Trough Salicylates Acetaminophen Plasma/Serum Alcohol Crossmatch 12/04/19 12/05/19 12/05/19 18:16 11:55 18:36 WBC RBC Hgb Hct MCH RDW Plt Count Lymph % (Auto) [place] % (Auto) [place] # Baso # Seg Neutrophils % Seg Neuts % (Manual) Lymphocytes % (Manual) Monocytes % (Manual) Seg Neutrophils # Seg Neutrophils # Man Lymphocytes # (Manual) Monocytes # (Manual) Eosinophils # (Manual) Basophils # (Manual) PT INR APTT ABG pH ABG pO2 ABG HCO3 ABG O2 Saturation ABG Base Excess ABG Hemoglobin Oxyhemoglobin Sodium Potassium Chloride Carbon Dioxide BUN Creatinine Glucose POC Glucose 135 H 125 H 135 H Lactic Acid Calcium Ionized Calcium Phosphorus Magnesium Total Bilirubin AST ALT Alkaline Phosphatase Ammonia Total Creatine Kinase CK-MB (CK-2) CK-MB (CK-2) Rel Index Total Protein Albumin Urine WBC (Auto) Vancomycin Trough Salicylates Acetaminophen Plasma/Serum Alcohol Crossmatch 12/05/19 12/06/19 12/06/19 23:30 04:14 05:43 WBC RBC Hgb Hct MCH RDW Plt Count Lymph % (Auto) [place] % (Auto) [place] # Baso # Seg Neutrophils % Seg Neuts % (Manual) Lymphocytes % (Manual) Monocytes % (Manual) Seg Neutrophils # Seg Neutrophils # Man Lymphocytes # (Manual) Monocytes # (Manual) Eosinophils # (Manual) Basophils # (Manual) PT INR APTT ABG pH ABG pO2 ABG HCO3 ABG O2 Saturation ABG Base Excess ABG Hemoglobin Oxyhemoglobin Sodium Potassium 5.6 H Chloride 95.0 L Carbon Dioxide BUN 48 H Creatinine 1.3 H D Glucose POC Glucose 126 H 121 H Lactic Acid Calcium Ionized Calcium Phosphorus Magnesium Total Bilirubin AST 89 H ALT 98 H Alkaline Phosphatase 476 H Ammonia Total Creatine Kinase CK-MB (CK-2) CK-MB (CK-2) Rel Index Total Protein Albumin 2.8 L Urine WBC (Auto) Vancomycin Trough Salicylates Acetaminophen Plasma/Serum Alcohol Crossmatch 12/06/19 12/06/19 12/07/19 10:39 14:34 00:19 WBC 17.3 H RBC 2.60 L Hgb 7.1 L Hct 22.7 L MCH 27 L RDW 20.1 H Plt Count 832 H Lymph % (Auto) [place] % (Auto) [place] # Baso # Seg Neutrophils % Seg Neuts % (Manual) Lymphocytes % (Manual) Monocytes % (Manual) Seg Neutrophils # Seg Neutrophils # Man Lymphocytes # (Manual) Monocytes # (Manual) Eosinophils # (Manual) Basophils # (Manual) PT INR APTT ABG pH ABG pO2 ABG HCO3 ABG O2 Saturation ABG Base Excess ABG Hemoglobin Oxyhemoglobin Sodium Potassium Chloride Carbon Dioxide BUN Creatinine Glucose POC Glucose 128 H 136 H Lactic Acid Calcium Ionized Calcium Phosphorus Magnesium Total Bilirubin AST ALT Alkaline Phosphatase Ammonia Total Creatine Kinase CK-MB (CK-2) CK-MB (CK-2) Rel Index Total Protein Albumin Urine WBC (Auto) Vancomycin Trough Salicylates Acetaminophen Plasma/Serum Alcohol Crossmatch 12/07/19 12/07/19 12/07/19 03:44 03:44 05:53 WBC 16.2 H RBC 2.56 L Hgb 7.1 L Hct 22.3 L MCH RDW 19.4 H Plt Count 782 H Lymph % (Auto) [place] % (Auto) [place] # Baso # Seg Neutrophils % Seg Neuts % (Manual) Lymphocytes % (Manual) Monocytes % (Manual) Seg Neutrophils # Seg Neutrophils # Man Lymphocytes # (Manual) Monocytes # (Manual) Eosinophils # (Manual) Basophils # (Manual) PT INR APTT ABG pH ABG pO2 ABG HCO3 ABG O2 Saturation ABG Base Excess ABG Hemoglobin Oxyhemoglobin Sodium Potassium Chloride 95.6 L Carbon Dioxide BUN 56 H Creatinine 1.4 H Glucose 120 H POC Glucose 128 H Lactic Acid Calcium 10.3 H Ionized Calcium Phosphorus Magnesium Total Bilirubin AST ALT Alkaline Phosphatase Ammonia Total Creatine Kinase CK-MB (CK-2) CK-MB (CK-2) Rel Index Total Protein Albumin Urine WBC (Auto) Vancomycin Trough Salicylates Acetaminophen Plasma/Serum Alcohol Crossmatch 12/07/19 12/07/19 12/08/19 12:54 23:47 00:20 WBC RBC Hgb Hct MCH RDW Plt Count Lymph % (Auto) [place] % (Auto) [place] # Baso # Seg Neutrophils % Seg Neuts % (Manual) Lymphocytes % (Manual) Monocytes % (Manual) Seg Neutrophils # Seg Neutrophils # Man Lymphocytes # (Manual) Monocytes # (Manual) Eosinophils # (Manual) Basophils # (Manual) PT INR APTT ABG pH ABG pO2 ABG HCO3 ABG O2 Saturation ABG Base Excess ABG Hemoglobin Oxyhemoglobin Sodium Potassium Chloride Carbon Dioxide BUN Creatinine Glucose POC Glucose 128 H 130 H 124 H Lactic Acid Calcium Ionized Calcium Phosphorus Magnesium Total Bilirubin AST ALT Alkaline Phosphatase Ammonia Total Creatine Kinase CK-MB (CK-2) CK-MB (CK-2) Rel Index Total Protein Albumin Urine WBC (Auto) Vancomycin Trough Salicylates Acetaminophen Plasma/Serum Alcohol Crossmatch 12/08/19 12/08/19 12/08/19 06:38 12:04 18:26 WBC RBC Hgb Hct MCH RDW Plt Count Lymph % (Auto) [place] % (Auto) [place] # Baso # Seg Neutrophils % Seg Neuts % (Manual) Lymphocytes % (Manual) Monocytes % (Manual) Seg Neutrophils # Seg Neutrophils # Man Lymphocytes # (Manual) Monocytes # (Manual) Eosinophils # (Manual) Basophils # (Manual) PT INR APTT ABG pH ABG pO2 ABG HCO3 ABG O2 Saturation ABG Base Excess ABG Hemoglobin Oxyhemoglobin Sodium Potassium Chloride Carbon Dioxide BUN Creatinine Glucose POC Glucose 137 H 129 H 150 H Lactic Acid Calcium Ionized Calcium Phosphorus Magnesium Total Bilirubin AST ALT Alkaline Phosphatase Ammonia Total Creatine Kinase CK-MB (CK-2) CK-MB (CK-2) Rel Index Total Protein Albumin Urine WBC (Auto) Vancomycin Trough Salicylates Acetaminophen Plasma/Serum Alcohol Crossmatch 12/09/19 12/09/19 12/09/19 00:56 05:34 06:13 WBC RBC Hgb Hct MCH RDW Plt Count Lymph % (Auto) [place] % (Auto) [place] # Baso # Seg Neutrophils % Seg Neuts % (Manual) Lymphocytes % (Manual) Monocytes % (Manual) Seg Neutrophils # Seg Neutrophils # Man Lymphocytes # (Manual) Monocytes # (Manual) Eosinophils # (Manual) Basophils # (Manual) PT INR APTT ABG pH ABG pO2 ABG HCO3 ABG O2 Saturation ABG Base Excess ABG Hemoglobin Oxyhemoglobin Sodium 146 H Potassium Chloride Carbon Dioxide BUN 66 H Creatinine 1.9 H Glucose 116 H POC Glucose 130 H 130 H Lactic Acid Calcium Ionized Calcium Phosphorus Magnesium Total Bilirubin AST ALT Alkaline Phosphatase Ammonia Total Creatine Kinase CK-MB (CK-2) CK-MB (CK-2) Rel Index Total Protein Albumin Urine WBC (Auto) Vancomycin Trough Salicylates Acetaminophen Plasma/Serum Alcohol Crossmatch 12/09/19 12/09/19 12/10/19 11:52 17:50 00:14 WBC RBC Hgb Hct MCH RDW Plt Count Lymph % (Auto) [place] % (Auto) [place] # Baso # Seg Neutrophils % Seg Neuts % (Manual) Lymphocytes % (Manual) Monocytes % (Manual) Seg Neutrophils # Seg Neutrophils # Man Lymphocytes # (Manual) Monocytes # (Manual) Eosinophils # (Manual) Basophils # (Manual) PT INR APTT ABG pH ABG pO2 ABG HCO3 ABG O2 Saturation ABG Base Excess ABG Hemoglobin Oxyhemoglobin Sodium Potassium Chloride Carbon Dioxide BUN Creatinine Glucose POC Glucose 135 H 120 H 116 H Lactic Acid Calcium Ionized Calcium Phosphorus Magnesium Total Bilirubin AST ALT Alkaline Phosphatase Ammonia Total Creatine Kinase CK-MB (CK-2) CK-MB (CK-2) Rel Index Total Protein Albumin Urine WBC (Auto) Vancomycin Trough Salicylates Acetaminophen Plasma/Serum Alcohol Crossmatch 12/10/19 12/10/19 12/10/19 05:38 11:38 17:34 WBC RBC Hgb Hct MCH RDW Plt Count Lymph % (Auto) [place] % (Auto) [place] # Baso # Seg Neutrophils % Seg Neuts % (Manual) Lymphocytes % (Manual) Monocytes % (Manual) Seg Neutrophils # Seg Neutrophils # Man Lymphocytes # (Manual) Monocytes # (Manual) Eosinophils # (Manual) Basophils # (Manual) PT INR APTT ABG pH ABG pO2 ABG HCO3 ABG O2 Saturation ABG Base Excess ABG Hemoglobin Oxyhemoglobin Sodium Potassium Chloride Carbon Dioxide BUN Creatinine Glucose POC Glucose 115 H 112 H 130 H Lactic Acid Calcium Ionized Calcium Phosphorus Magnesium Total Bilirubin AST ALT Alkaline Phosphatase Ammonia Total Creatine Kinase CK-MB (CK-2) CK-MB (CK-2) Rel Index Total Protein Albumin Urine WBC (Auto) Vancomycin Trough Salicylates Acetaminophen Plasma/Serum Alcohol Crossmatch 12/11/19 12/11/19 12/11/19 00:20 05:31 12:22 WBC RBC Hgb Hct MCH RDW Plt Count Lymph % (Auto) [place] % (Auto) [place] # Baso # Seg Neutrophils % Seg Neuts % (Manual) Lymphocytes % (Manual) Monocytes % (Manual) Seg Neutrophils # Seg Neutrophils # Man Lymphocytes # (Manual) Monocytes # (Manual) Eosinophils # (Manual) Basophils # (Manual) PT INR APTT ABG pH ABG pO2 ABG HCO3 ABG O2 Saturation ABG Base Excess ABG Hemoglobin Oxyhemoglobin Sodium Potassium Chloride Carbon Dioxide BUN Creatinine Glucose POC Glucose 124 H 132 H 128 H Lactic Acid Calcium Ionized Calcium Phosphorus Magnesium Total Bilirubin AST ALT Alkaline Phosphatase Ammonia Total Creatine Kinase CK-MB (CK-2) CK-MB (CK-2) Rel Index Total Protein Albumin Urine WBC (Auto) Vancomycin Trough Salicylates Acetaminophen Plasma/Serum Alcohol Crossmatch 12/11/19 12/11/19 12/12/19 18:04 23:42 03:51 WBC RBC Hgb Hct MCH RDW Plt Count Lymph % (Auto) [place] % (Auto) [place] # Baso # Seg Neutrophils % Seg Neuts % (Manual) Lymphocytes % (Manual) Monocytes % (Manual) Seg Neutrophils # Seg Neutrophils # Man Lymphocytes # (Manual) Monocytes # (Manual) Eosinophils # (Manual) Basophils # (Manual) PT INR APTT ABG pH ABG pO2 ABG HCO3 ABG O2 Saturation ABG Base Excess ABG Hemoglobin Oxyhemoglobin Sodium 149 H Potassium Chloride Carbon Dioxide 20 L D BUN 77 H Creatinine 2.8 H Glucose POC Glucose 133 H 154 H Lactic Acid Calcium Ionized Calcium Phosphorus Magnesium Total Bilirubin AST ALT Alkaline Phosphatase Ammonia Total Creatine Kinase CK-MB (CK-2) CK-MB (CK-2) Rel Index Total Protein Albumin Urine WBC (Auto) Vancomycin Trough Salicylates Acetaminophen Plasma/Serum Alcohol Crossmatch 12/12/19 12/12/19 12/12/19 05:18 05:26 10:30 WBC 18.0 H RBC 2.51 L Hgb 6.8 L Hct 22.0 L MCH 27 L RDW 19.9 H Plt Count 582 H Lymph % (Auto) [place] % (Auto) [place] # Baso # Seg Neutrophils % Seg Neuts % (Manual) Lymphocytes % (Manual) Monocytes % (Manual) Seg Neutrophils # Seg Neutrophils # Man Lymphocytes # (Manual) Monocytes # (Manual) Eosinophils # (Manual) Basophils # (Manual) PT INR APTT ABG pH ABG pO2 ABG HCO3 ABG O2 Saturation ABG Base Excess ABG Hemoglobin Oxyhemoglobin Sodium Potassium Chloride Carbon Dioxide BUN Creatinine Glucose POC Glucose 135 H Lactic Acid Calcium Ionized Calcium Phosphorus Magnesium Total Bilirubin AST ALT Alkaline Phosphatase Ammonia Total Creatine Kinase CK-MB (CK-2) CK-MB (CK-2) Rel Index Total Protein Albumin Urine WBC (Auto) Vancomycin Trough Salicylates Acetaminophen Plasma/Serum Alcohol Crossmatch See Detail 12/12/19 12/12/19 12/12/19 11:44 18:10 23:21 WBC RBC Hgb Hct MCH RDW Plt Count Lymph % (Auto) [place] % (Auto) [place] # Baso # Seg Neutrophils % Seg Neuts % (Manual) Lymphocytes % (Manual) Monocytes % (Manual) Seg Neutrophils # Seg Neutrophils # Man Lymphocytes # (Manual) Monocytes # (Manual) Eosinophils # (Manual) Basophils # (Manual) PT INR APTT ABG pH ABG pO2 ABG HCO3 ABG O2 Saturation ABG Base Excess ABG Hemoglobin Oxyhemoglobin Sodium Potassium Chloride Carbon Dioxide BUN Creatinine Glucose POC Glucose 108 H 107 H 126 H Lactic Acid Calcium Ionized Calcium Phosphorus Magnesium Total Bilirubin AST ALT Alkaline Phosphatase Ammonia Total Creatine Kinase CK-MB (CK-2) CK-MB (CK-2) Rel Index Total Protein Albumin Urine WBC (Auto) Vancomycin Trough Salicylates Acetaminophen Plasma/Serum Alcohol Crossmatch 12/13/19 12/13/19 12/13/19 05:41 07:48 07:48 WBC 38.3 H RBC 2.37 L Hgb 6.3 L Hct 20.9 L MCH 27 L RDW 20.2 H Plt Count 546 H Lymph % (Auto) [place] % (Auto) [place] # Baso # Seg Neutrophils % Seg Neuts % (Manual) 93.0 H Lymphocytes % (Manual) 1.0 L Monocytes % (Manual) Seg Neutrophils # Seg Neutrophils # Man 35.6 H Lymphocytes # (Manual) 0.4 L Monocytes # (Manual) Eosinophils # (Manual) Basophils # (Manual) 0.4 H PT INR APTT ABG pH ABG pO2 ABG HCO3 ABG O2 Saturation ABG Base Excess ABG Hemoglobin Oxyhemoglobin Sodium 152 H Potassium 3.1 L D Chloride 111.9 H Carbon Dioxide 21 L BUN 53 H Creatinine 1.9 H Glucose 141 H POC Glucose 128 H Lactic Acid Calcium Ionized Calcium Phosphorus Magnesium Total Bilirubin AST ALT Alkaline Phosphatase 316 H Ammonia Total Creatine Kinase CK-MB (CK-2) CK-MB (CK-2) Rel Index Total Protein Albumin 2.4 L Urine WBC (Auto) Vancomycin Trough Salicylates Acetaminophen Plasma/Serum Alcohol Crossmatch 12/13/19 12/13/19 12/14/19 18:17 23:19 05:36 WBC RBC Hgb Hct MCH RDW Plt Count Lymph % (Auto) [place] % (Auto) [place] # Baso # Seg Neutrophils % Seg Neuts % (Manual) Lymphocytes % (Manual) Monocytes % (Manual) Seg Neutrophils # Seg Neutrophils # Man Lymphocytes # (Manual) Monocytes # (Manual) Eosinophils # (Manual) Basophils # (Manual) PT INR APTT ABG pH ABG pO2 ABG HCO3 ABG O2 Saturation ABG Base Excess ABG Hemoglobin Oxyhemoglobin Sodium Potassium Chloride Carbon Dioxide BUN Creatinine Glucose POC Glucose 141 H 158 H 182 H Lactic Acid Calcium Ionized Calcium Phosphorus Magnesium Total Bilirubin AST ALT Alkaline Phosphatase Ammonia Total Creatine Kinase CK-MB (CK-2) CK-MB (CK-2) Rel Index Total Protein Albumin Urine WBC (Auto) Vancomycin Trough Salicylates Acetaminophen Plasma/Serum Alcohol Crossmatch 12/14/19 12/14/19 12/14/19 08:48 08:48 10:31 WBC 33.3 H RBC 2.70 L Hgb 7.9 L 8.0 L Hct 25.3 L 24.0 L MCH RDW 19.2 H Plt Count 476 H Lymph % (Auto) [place] % (Auto) [place] # Baso # Seg Neutrophils % Seg Neuts % (Manual) Lymphocytes % (Manual) Monocytes % (Manual) Seg Neutrophils # Seg Neutrophils # Man Lymphocytes # (Manual) Monocytes # (Manual) Eosinophils # (Manual) Basophils # (Manual) PT INR APTT ABG pH ABG pO2 ABG HCO3 ABG O2 Saturation ABG Base Excess ABG Hemoglobin Oxyhemoglobin Sodium 153 H Potassium 2.5 L* Chloride 114.9 H Carbon Dioxide 20 L BUN 38 H Creatinine 1.4 H Glucose 177 H POC Glucose Lactic Acid Calcium Ionized Calcium Phosphorus Magnesium Total Bilirubin AST ALT Alkaline Phosphatase Ammonia Total Creatine Kinase CK-MB (CK-2) CK-MB (CK-2) Rel Index Total Protein Albumin Urine WBC (Auto) Vancomycin Trough Salicylates Acetaminophen Plasma/Serum Alcohol Crossmatch 12/14/19 12/14/19 12/14/19 12:57 16:15 17:50 WBC RBC Hgb Hct MCH RDW Plt Count Lymph % (Auto) [place] % (Auto) [place] # Baso # Seg Neutrophils % Seg Neuts % (Manual) Lymphocytes % (Manual) Monocytes % (Manual) Seg Neutrophils # Seg Neutrophils # Man Lymphocytes # (Manual) Monocytes # (Manual) Eosinophils # (Manual) Basophils # (Manual) PT INR APTT ABG pH ABG pO2 73.6 L ABG HCO3 ABG O2 Saturation ABG Base Excess ABG Hemoglobin 7.6 L Oxyhemoglobin 94.0 L Sodium Potassium Chloride Carbon Dioxide BUN Creatinine Glucose POC Glucose 174 H 150 H Lactic Acid Calcium Ionized Calcium Phosphorus Magnesium Total Bilirubin AST ALT Alkaline Phosphatase Ammonia Total Creatine Kinase CK-MB (CK-2) CK-MB (CK-2) Rel Index Total Protein Albumin Urine WBC (Auto) Vancomycin Trough Salicylates Acetaminophen Plasma/Serum Alcohol Crossmatch 12/15/19 12/15/19 12/15/19 00:28 05:27 07:23 WBC 30.0 H RBC 3.11 L Hgb 8.6 L Hct 27.7 L MCH RDW 20.0 H Plt Count 473 H Lymph % (Auto) [place] % (Auto) [place] # Baso # Seg Neutrophils % Seg Neuts % (Manual) Lymphocytes % (Manual) Monocytes % (Manual) Seg Neutrophils # Seg Neutrophils # Man Lymphocytes # (Manual) Monocytes # (Manual) Eosinophils # (Manual) Basophils # (Manual) PT INR APTT ABG pH ABG pO2 ABG HCO3 ABG O2 Saturation ABG Base Excess ABG Hemoglobin Oxyhemoglobin Sodium Potassium Chloride Carbon Dioxide BUN Creatinine Glucose POC Glucose 167 H 148 H Lactic Acid Calcium Ionized Calcium Phosphorus Magnesium Total Bilirubin AST ALT Alkaline Phosphatase Ammonia Total Creatine Kinase CK-MB (CK-2) CK-MB (CK-2) Rel Index Total Protein Albumin Urine WBC (Auto) Vancomycin Trough Salicylates Acetaminophen Plasma/Serum Alcohol Crossmatch 12/15/19 12/15/19 12/15/19 07:23 12:21 17:41 WBC RBC Hgb Hct MCH RDW Plt Count Lymph % (Auto) [place] % (Auto) [place] # Baso # Seg Neutrophils % Seg Neuts % (Manual) Lymphocytes % (Manual) Monocytes % (Manual) Seg Neutrophils # Seg Neutrophils # Man Lymphocytes # (Manual) Monocytes # (Manual) Eosinophils # (Manual) Basophils # (Manual) PT INR APTT ABG pH ABG pO2 ABG HCO3 ABG O2 Saturation ABG Base Excess ABG Hemoglobin Oxyhemoglobin Sodium 147 H Potassium 3.5 L D Chloride 111.2 H Carbon Dioxide 19 L BUN 29 H Creatinine Glucose 126 H POC Glucose 154 H 144 H Lactic Acid Calcium Ionized Calcium Phosphorus Magnesium Total Bilirubin AST ALT Alkaline Phosphatase Ammonia Total Creatine Kinase CK-MB (CK-2) CK-MB (CK-2) Rel Index Total Protein Albumin Urine WBC (Auto) Vancomycin Trough Salicylates Acetaminophen Plasma/Serum Alcohol Crossmatch 12/16/19 12/16/19 12/16/19 00:22 05:30 05:44 WBC 30.8 H RBC 2.58 L Hgb 7.1 L Hct 22.7 L MCH RDW 19.6 H Plt Count 451 H Lymph % (Auto) [place] % (Auto) [place] # Baso # Seg Neutrophils % Seg Neuts % (Manual) Lymphocytes % (Manual) Monocytes % (Manual) Seg Neutrophils # Seg Neutrophils # Man Lymphocytes # (Manual) Monocytes # (Manual) Eosinophils # (Manual) Basophils # (Manual) PT INR APTT ABG pH ABG pO2 ABG HCO3 ABG O2 Saturation ABG Base Excess ABG Hemoglobin Oxyhemoglobin Sodium Potassium Chloride Carbon Dioxide BUN Creatinine Glucose POC Glucose 139 H 126 H Lactic Acid Calcium Ionized Calcium Phosphorus Magnesium Total Bilirubin AST ALT Alkaline Phosphatase Ammonia Total Creatine Kinase CK-MB (CK-2) CK-MB (CK-2) Rel Index Total Protein Albumin Urine WBC (Auto) Vancomycin Trough Salicylates Acetaminophen Plasma/Serum Alcohol Crossmatch 12/16/19 12/16/19 12/16/19 05:44 11:48 17:37 WBC RBC Hgb Hct MCH RDW Plt Count Lymph % (Auto) [place] % (Auto) [place] # Baso # Seg Neutrophils % Seg Neuts % (Manual) Lymphocytes % (Manual) Monocytes % (Manual) Seg Neutrophils # Seg Neutrophils # Man Lymphocytes # (Manual) Monocytes # (Manual) Eosinophils # (Manual) Basophils # (Manual) PT INR APTT ABG pH ABG pO2 ABG HCO3 ABG O2 Saturation ABG Base Excess ABG Hemoglobin Oxyhemoglobin Sodium Potassium 3.4 L Chloride 109.2 H Carbon Dioxide 19 L BUN 27 H Creatinine Glucose 124 H POC Glucose 125 H 148 H Lactic Acid Calcium Ionized Calcium Phosphorus Magnesium Total Bilirubin AST ALT Alkaline Phosphatase Ammonia Total Creatine Kinase CK-MB (CK-2) CK-MB (CK-2) Rel Index Total Protein Albumin Urine WBC (Auto) Vancomycin Trough Salicylates Acetaminophen Plasma/Serum Alcohol Crossmatch 12/16/19 12/17/19 12/17/19 23:43 05:28 12:47 WBC RBC Hgb Hct MCH RDW Plt Count Lymph % (Auto) [place] % (Auto) [place] # Baso # Seg Neutrophils % Seg Neuts % (Manual) Lymphocytes % (Manual) Monocytes % (Manual) Seg Neutrophils # Seg Neutrophils # Man Lymphocytes # (Manual) Monocytes # (Manual) Eosinophils # (Manual) Basophils # (Manual) PT INR APTT ABG pH ABG pO2 ABG HCO3 ABG O2 Saturation ABG Base Excess ABG Hemoglobin Oxyhemoglobin Sodium Potassium Chloride Carbon Dioxide BUN Creatinine Glucose POC Glucose 142 H 140 H 125 H Lactic Acid Calcium Ionized Calcium Phosphorus Magnesium Total Bilirubin AST ALT Alkaline Phosphatase Ammonia Total Creatine Kinase CK-MB (CK-2) CK-MB (CK-2) Rel Index Total Protein Albumin Urine WBC (Auto) Vancomycin Trough Salicylates Acetaminophen Plasma/Serum Alcohol Crossmatch 12/17/19 12/17/19 12/17/19 17:05 18:00 Unknown WBC RBC Hgb Hct MCH RDW Plt Count Lymph % (Auto) [place] % (Auto) [place] # Baso # Seg Neutrophils % Seg Neuts % (Manual) Lymphocytes % (Manual) Monocytes % (Manual) Seg Neutrophils # Seg Neutrophils # Man Lymphocytes # (Manual) Monocytes # (Manual) Eosinophils # (Manual) Basophils # (Manual) PT INR APTT ABG pH ABG pO2 68.1 L ABG HCO3 ABG O2 Saturation 93.7 L ABG Base Excess ABG Hemoglobin 5.0 L Oxyhemoglobin 91.7 L Sodium Potassium Chloride Carbon Dioxide BUN Creatinine Glucose POC Glucose 140 H Lactic Acid Calcium Ionized Calcium Phosphorus Magnesium Total Bilirubin AST ALT Alkaline Phosphatase Ammonia Total Creatine Kinase CK-MB (CK-2) CK-MB (CK-2) Rel Index Total Protein Albumin Urine WBC (Auto) Vancomycin Trough Salicylates Acetaminophen Plasma/Serum Alcohol Crossmatch 12/18/19 12/18/19 12/18/19 00:16 04:53 04:53 WBC 28.6 H RBC 2.27 L Hgb 6.3 L Hct 19.5 L* MCH RDW 20.0 H Plt Count 497 H Lymph % (Auto) [place] % (Auto) [place] # Baso # Seg Neutrophils % Seg Neuts % (Manual) Lymphocytes % (Manual) Monocytes % (Manual) Seg Neutrophils # Seg Neutrophils # Man Lymphocytes # (Manual) Monocytes # (Manual) Eosinophils # (Manual) Basophils # (Manual) PT INR APTT ABG pH ABG pO2 ABG HCO3 ABG O2 Saturation ABG Base Excess ABG Hemoglobin Oxyhemoglobin Sodium Potassium Chloride 107.9 H Carbon Dioxide 20 L BUN 27 H Creatinine 0.6 L Glucose 116 H POC Glucose 123 H Lactic Acid Calcium Ionized Calcium Phosphorus Magnesium Total Bilirubin AST ALT Alkaline Phosphatase Ammonia Total Creatine Kinase CK-MB (CK-2) CK-MB (CK-2) Rel Index Total Protein Albumin Urine WBC (Auto) Vancomycin Trough Salicylates Acetaminophen Plasma/Serum Alcohol Crossmatch 12/18/19 12/18/19 12/18/19 06:38 11:22 12:08 WBC RBC Hgb Hct MCH RDW Plt Count Lymph % (Auto) [place] % (Auto) [place] # Baso # Seg Neutrophils % Seg Neuts % (Manual) Lymphocytes % (Manual) Monocytes % (Manual) Seg Neutrophils # Seg Neutrophils # Man Lymphocytes # (Manual) Monocytes # (Manual) Eosinophils # (Manual) Basophils # (Manual) PT INR APTT ABG pH ABG pO2 ABG HCO3 ABG O2 Saturation ABG Base Excess ABG Hemoglobin Oxyhemoglobin Sodium Potassium Chloride Carbon Dioxide BUN Creatinine Glucose POC Glucose 120 H 127 H Lactic Acid Calcium Ionized Calcium Phosphorus Magnesium Total Bilirubin AST ALT Alkaline Phosphatase Ammonia Total Creatine Kinase CK-MB (CK-2) CK-MB (CK-2) Rel Index Total Protein Albumin Urine WBC (Auto) Vancomycin Trough Salicylates Acetaminophen Plasma/Serum Alcohol Crossmatch See Detail 12/18/19 12/18/19 12/18/19 14:05 17:49 23:53 WBC RBC Hgb Hct MCH RDW Plt Count Lymph % (Auto) [place] % (Auto) [place] # Baso # Seg Neutrophils % Seg Neuts % (Manual) Lymphocytes % (Manual) Monocytes % (Manual) Seg Neutrophils # Seg Neutrophils # Man Lymphocytes # (Manual) Monocytes # (Manual) Eosinophils # (Manual) Basophils # (Manual) PT INR APTT ABG pH 7.267 L ABG pO2 69.8 L ABG HCO3 ABG O2 Saturation 88.4 L ABG Base Excess ABG Hemoglobin 7.1 L Oxyhemoglobin 86.4 L Sodium Potassium Chloride Carbon Dioxide BUN Creatinine Glucose POC Glucose 157 H 128 H Lactic Acid Calcium Ionized Calcium Phosphorus Magnesium Total Bilirubin AST ALT Alkaline Phosphatase Ammonia Total Creatine Kinase CK-MB (CK-2) CK-MB (CK-2) Rel Index Total Protein Albumin Urine WBC (Auto) Vancomycin Trough Salicylates Acetaminophen Plasma/Serum Alcohol Crossmatch 12/19/19 12/19/19 12/19/19 03:37 03:37 05:25 WBC 31.3 H RBC 2.60 L Hgb 7.6 L Hct 23.0 L MCH RDW 19.4 H Plt Count 530 H Lymph % (Auto) [place] % (Auto) [place] # Baso # Seg Neutrophils % Seg Neuts % (Manual) Lymphocytes % (Manual) Monocytes % (Manual) Seg Neutrophils # Seg Neutrophils # Man Lymphocytes # (Manual) Monocytes # (Manual) Eosinophils # (Manual) Basophils # (Manual) PT INR APTT ABG pH ABG pO2 ABG HCO3 ABG O2 Saturation ABG Base Excess ABG Hemoglobin Oxyhemoglobin Sodium Potassium Chloride Carbon Dioxide 18 L BUN 36 H Creatinine Glucose 111 H POC Glucose 123 H Lactic Acid Calcium Ionized Calcium Phosphorus Magnesium Total Bilirubin AST ALT Alkaline Phosphatase Ammonia Total Creatine Kinase CK-MB (CK-2) CK-MB (CK-2) Rel Index Total Protein Albumin Urine WBC (Auto) Vancomycin Trough Salicylates Acetaminophen Plasma/Serum Alcohol Crossmatch 12/19/19 12/19/19 12/20/19 12:59 18:33 00:00 WBC RBC Hgb Hct MCH RDW Plt Count Lymph % (Auto) [place] % (Auto) [place] # Baso # Seg Neutrophils % Seg Neuts % (Manual) Lymphocytes % (Manual) Monocytes % (Manual) Seg Neutrophils # Seg Neutrophils # Man Lymphocytes # (Manual) Monocytes # (Manual) Eosinophils # (Manual) Basophils # (Manual) PT INR APTT ABG pH ABG pO2 ABG HCO3 ABG O2 Saturation ABG Base Excess ABG Hemoglobin Oxyhemoglobin Sodium Potassium Chloride Carbon Dioxide BUN Creatinine Glucose POC Glucose 130 H 118 H 135 H Lactic Acid Calcium Ionized Calcium Phosphorus Magnesium Total Bilirubin AST ALT Alkaline Phosphatase Ammonia Total Creatine Kinase CK-MB (CK-2) CK-MB (CK-2) Rel Index Total Protein Albumin Urine WBC (Auto) Vancomycin Trough Salicylates Acetaminophen Plasma/Serum Alcohol Crossmatch 12/20/19 12/20/19 12/20/19 05:46 12:31 18:07 WBC RBC Hgb Hct MCH RDW Plt Count Lymph % (Auto) [place] % (Auto) [place] # Baso # Seg Neutrophils % Seg Neuts % (Manual) Lymphocytes % (Manual) Monocytes % (Manual) Seg Neutrophils # Seg Neutrophils # Man Lymphocytes # (Manual) Monocytes # (Manual) Eosinophils # (Manual) Basophils # (Manual) PT INR APTT ABG pH ABG pO2 ABG HCO3 ABG O2 Saturation ABG Base Excess ABG Hemoglobin Oxyhemoglobin Sodium Potassium Chloride Carbon Dioxide BUN Creatinine Glucose POC Glucose 131 H 128 H 134 H Lactic Acid Calcium Ionized Calcium Phosphorus Magnesium Total Bilirubin AST ALT Alkaline Phosphatase Ammonia Total Creatine Kinase CK-MB (CK-2) CK-MB (CK-2) Rel Index Total Protein Albumin Urine WBC (Auto) Vancomycin Trough Salicylates Acetaminophen Plasma/Serum Alcohol Crossmatch 12/21/19 12/21/19 12/21/19 03:28 03:28 07:21 WBC 29.4 H RBC 2.30 L Hgb 6.8 L Hct 20.2 L MCH RDW 20.2 H Plt Count 746 H Lymph % (Auto) [place] % (Auto) [place] # Baso # Seg Neutrophils % Seg Neuts % (Manual) 85.0 H Lymphocytes % (Manual) 8.0 L Monocytes % (Manual) Seg Neutrophils # Seg Neutrophils # Man 25.0 H Lymphocytes # (Manual) Monocytes # (Manual) 1.5 H Eosinophils # (Manual) 0.6 H Basophils # (Manual) PT INR APTT ABG pH ABG pO2 ABG HCO3 ABG O2 Saturation ABG Base Excess ABG Hemoglobin Oxyhemoglobin Sodium Potassium Chloride Carbon Dioxide 17 L BUN 57 H Creatinine 1.4 H D Glucose POC Glucose 124 H Lactic Acid Calcium Ionized Calcium Phosphorus Magnesium Total Bilirubin AST ALT Alkaline Phosphatase Ammonia Total Creatine Kinase CK-MB (CK-2) CK-MB (CK-2) Rel Index Total Protein Albumin Urine WBC (Auto) Vancomycin Trough Salicylates Acetaminophen Plasma/Serum Alcohol Crossmatch 12/21/19 12/21/19 12/21/19 08:56 12:06 14:53 WBC RBC Hgb 7.2 L Hct 22.9 L MCH RDW Plt Count Lymph % (Auto) [place] % (Auto) [place] # Baso # Seg Neutrophils % Seg Neuts % (Manual) Lymphocytes % (Manual) Monocytes % (Manual) Seg Neutrophils # Seg Neutrophils # Man Lymphocytes # (Manual) Monocytes # (Manual) Eosinophils # (Manual) Basophils # (Manual) PT INR APTT ABG pH ABG pO2 ABG HCO3 ABG O2 Saturation ABG Base Excess ABG Hemoglobin Oxyhemoglobin Sodium Potassium Chloride Carbon Dioxide BUN Creatinine Glucose POC Glucose 116 H Lactic Acid Calcium Ionized Calcium Phosphorus Magnesium Total Bilirubin AST ALT Alkaline Phosphatase Ammonia Total Creatine Kinase CK-MB (CK-2) CK-MB (CK-2) Rel Index Total Protein Albumin Urine WBC (Auto) Vancomycin Trough 33.8 H Salicylates Acetaminophen Plasma/Serum Alcohol Crossmatch 12/21/19 12/21/19 12/21/19 14:54 17:27 23:49 WBC RBC Hgb Hct MCH RDW Plt Count Lymph % (Auto) [place] % (Auto) [place] # Baso # Seg Neutrophils % Seg Neuts % (Manual) Lymphocytes % (Manual) Monocytes % (Manual) Seg Neutrophils # Seg Neutrophils # Man Lymphocytes # (Manual) Monocytes # (Manual) Eosinophils # (Manual) Basophils # (Manual) PT INR APTT ABG pH ABG pO2 ABG HCO3 ABG O2 Saturation ABG Base Excess ABG Hemoglobin Oxyhemoglobin Sodium Potassium Chloride Carbon Dioxide BUN Creatinine Glucose POC Glucose 145 H 127 H Lactic Acid Calcium Ionized Calcium Phosphorus Magnesium Total Bilirubin AST ALT Alkaline Phosphatase Ammonia Total Creatine Kinase CK-MB (CK-2) CK-MB (CK-2) Rel Index Total Protein Albumin Urine WBC (Auto) Vancomycin Trough Salicylates Acetaminophen Plasma/Serum Alcohol Crossmatch See Detail 12/22/19 12/22/19 12/22/19 04:43 05:56 08:40 WBC RBC Hgb Hct MCH RDW Plt Count Lymph % (Auto) [place] % (Auto) [place] # Baso # Seg Neutrophils % Seg Neuts % (Manual) Lymphocytes % (Manual) Monocytes % (Manual) Seg Neutrophils # Seg Neutrophils # Man Lymphocytes # (Manual) Monocytes # (Manual) Eosinophils # (Manual) Basophils # (Manual) PT INR APTT ABG pH ABG pO2 75.6 L ABG HCO3 ABG O2 Saturation ABG Base Excess -2.6 L ABG Hemoglobin 6.8 L Oxyhemoglobin 94.6 L Sodium Potassium Chloride Carbon Dioxide 17 L BUN 60 H Creatinine 1.4 H Glucose 126 H POC Glucose 153 H Lactic Acid Calcium Ionized Calcium Phosphorus Magnesium Total Bilirubin AST ALT Alkaline Phosphatase Ammonia Total Creatine Kinase CK-MB (CK-2) CK-MB (CK-2) Rel Index Total Protein Albumin Urine WBC (Auto) Vancomycin Trough Salicylates Acetaminophen Plasma/Serum Alcohol Crossmatch 12/22/19 12/22/19 12/23/19 12:07 17:49 04:30 WBC 22.4 H RBC 2.68 L Hgb 7.6 L Hct 22.9 L MCH RDW 19.9 H Plt Count 998 H Lymph % (Auto) [place] % (Auto) [place] # Baso # Seg Neutrophils % Seg Neuts % (Manual) 88.0 H Lymphocytes % (Manual) 2.0 L Monocytes % (Manual) 9.0 H Seg Neutrophils # Seg Neutrophils # Man 19.7 H Lymphocytes # (Manual) 0.4 L Monocytes # (Manual) 2.0 H Eosinophils # (Manual) Basophils # (Manual) PT INR APTT ABG pH ABG pO2 ABG HCO3 ABG O2 Saturation ABG Base Excess ABG Hemoglobin Oxyhemoglobin Sodium Potassium Chloride Carbon Dioxide BUN Creatinine Glucose POC Glucose 140 H 116 H Lactic Acid Calcium Ionized Calcium Phosphorus Magnesium Total Bilirubin AST ALT Alkaline Phosphatase Ammonia Total Creatine Kinase CK-MB (CK-2) CK-MB (CK-2) Rel Index Total Protein Albumin Urine WBC (Auto) Vancomycin Trough Salicylates Acetaminophen Plasma/Serum Alcohol Crossmatch 12/23/19 12/23/19 12/23/19 04:30 12:00 18:06 WBC RBC Hgb Hct MCH RDW Plt Count Lymph % (Auto) [place] % (Auto) [place] # Baso # Seg Neutrophils % Seg Neuts % (Manual) Lymphocytes % (Manual) Monocytes % (Manual) Seg Neutrophils # Seg Neutrophils # Man Lymphocytes # (Manual) Monocytes # (Manual) Eosinophils # (Manual) Basophils # (Manual) PT INR APTT ABG pH ABG pO2 ABG HCO3 ABG O2 Saturation ABG Base Excess ABG Hemoglobin Oxyhemoglobin Sodium Potassium 5.2 H Chloride Carbon Dioxide 21 L BUN 69 H Creatinine 1.5 H Glucose 117 H POC Glucose 128 H 138 H Lactic Acid Calcium Ionized Calcium Phosphorus Magnesium Total Bilirubin AST ALT Alkaline Phosphatase Ammonia Total Creatine Kinase CK-MB (CK-2) CK-MB (CK-2) Rel Index Total Protein Albumin Urine WBC (Auto) Vancomycin Trough Salicylates Acetaminophen Plasma/Serum Alcohol Crossmatch 12/23/19 12/24/19 12/24/19 23:46 04:31 05:08 WBC RBC Hgb Hct MCH RDW Plt Count Lymph % (Auto) [place] % (Auto) [place] # Baso # Seg Neutrophils % Seg Neuts % (Manual) Lymphocytes % (Manual) Monocytes % (Manual) Seg Neutrophils # Seg Neutrophils # Man Lymphocytes # (Manual) Monocytes # (Manual) Eosinophils # (Manual) Basophils # (Manual) PT INR APTT ABG pH ABG pO2 ABG HCO3 ABG O2 Saturation ABG Base Excess ABG Hemoglobin Oxyhemoglobin Sodium Potassium 5.3 H Chloride 107.6 H Carbon Dioxide 20 L BUN 72 H Creatinine 1.6 H Glucose 120 H POC Glucose 120 H 140 H Lactic Acid Calcium Ionized Calcium Phosphorus Magnesium Total Bilirubin AST ALT Alkaline Phosphatase Ammonia Total Creatine Kinase CK-MB (CK-2) CK-MB (CK-2) Rel Index Total Protein Albumin Urine WBC (Auto) Vancomycin Trough Salicylates Acetaminophen Plasma/Serum Alcohol Crossmatch 12/24/19 12/24/19 12/25/19 11:58 17:49 03:47 WBC 36.2 H RBC 2.92 L Hgb 8.4 L Hct 26.1 L MCH RDW 20.2 H Plt Count 942 H Lymph % (Auto) [place] % (Auto) [place] # Baso # Seg Neutrophils % Seg Neuts % (Manual) 97.5 H Lymphocytes % (Manual) 1.0 L Monocytes % (Manual) Seg Neutrophils # Seg Neutrophils # Man 35.3 H Lymphocytes # (Manual) 0.4 L Monocytes # (Manual) Eosinophils # (Manual) Basophils # (Manual) PT INR APTT ABG pH ABG pO2 ABG HCO3 ABG O2 Saturation ABG Base Excess ABG Hemoglobin Oxyhemoglobin Sodium Potassium Chloride Carbon Dioxide BUN Creatinine Glucose POC Glucose 146 H 131 H Lactic Acid Calcium Ionized Calcium Phosphorus Magnesium Total Bilirubin AST ALT Alkaline Phosphatase Ammonia Total Creatine Kinase CK-MB (CK-2) CK-MB (CK-2) Rel Index Total Protein Albumin Urine WBC (Auto) Vancomycin Trough Salicylates Acetaminophen Plasma/Serum Alcohol Crossmatch 12/25/19 12/25/19 12/25/19 03:47 05:30 12:23 WBC RBC Hgb Hct MCH RDW Plt Count Lymph % (Auto) [place] % (Auto) [place] # Baso # Seg Neutrophils % Seg Neuts % (Manual) Lymphocytes % (Manual) Monocytes % (Manual) Seg Neutrophils # Seg Neutrophils # Man Lymphocytes # (Manual) Monocytes # (Manual) Eosinophils # (Manual) Basophils # (Manual) PT INR APTT ABG pH ABG pO2 ABG HCO3 ABG O2 Saturation ABG Base Excess ABG Hemoglobin Oxyhemoglobin Sodium Potassium Chloride Carbon Dioxide 15 L BUN 70 H Creatinine 1.7 H Glucose 153 H POC Glucose 169 H 135 H Lactic Acid Calcium Ionized Calcium Phosphorus Magnesium Total Bilirubin AST ALT Alkaline Phosphatase Ammonia Total Creatine Kinase CK-MB (CK-2) CK-MB (CK-2) Rel Index Total Protein Albumin Urine WBC (Auto) Vancomycin Trough Salicylates Acetaminophen Plasma/Serum Alcohol Crossmatch 12/25/19 12/25/19 12/26/19 17:37 23:29 09:47 WBC 22.1 H RBC 2.83 L Hgb 7.9 L Hct 25.5 L MCH RDW 20.0 H Plt Count 894 H Lymph % (Auto) [place] % (Auto) [place] # Baso # Seg Neutrophils % Seg Neuts % (Manual) Lymphocytes % (Manual) Monocytes % (Manual) Seg Neutrophils # Seg Neutrophils # Man Lymphocytes # (Manual) Monocytes # (Manual) Eosinophils # (Manual) Basophils # (Manual) PT INR APTT ABG pH ABG pO2 ABG HCO3 ABG O2 Saturation ABG Base Excess ABG Hemoglobin Oxyhemoglobin Sodium Potassium Chloride Carbon Dioxide BUN Creatinine Glucose POC Glucose 120 H 140 H Lactic Acid Calcium Ionized Calcium Phosphorus Magnesium Total Bilirubin AST ALT Alkaline Phosphatase Ammonia Total Creatine Kinase CK-MB (CK-2) CK-MB (CK-2) Rel Index Total Protein Albumin Urine WBC (Auto) Vancomycin Trough Salicylates Acetaminophen Plasma/Serum Alcohol Crossmatch 12/26/19 12/26/19 12/26/19 09:47 11:46 17:52 WBC RBC Hgb Hct MCH RDW Plt Count Lymph % (Auto) [place] % (Auto) [place] # Baso # Seg Neutrophils % Seg Neuts % (Manual) Lymphocytes % (Manual) Monocytes % (Manual) Seg Neutrophils # Seg Neutrophils # Man Lymphocytes # (Manual) Monocytes # (Manual) Eosinophils # (Manual) Basophils # (Manual) PT INR APTT ABG pH ABG pO2 ABG HCO3 ABG O2 Saturation ABG Base Excess ABG Hemoglobin Oxyhemoglobin Sodium Potassium Chloride Carbon Dioxide 18 L BUN 65 H Creatinine 1.4 H Glucose 132 H POC Glucose 110 H 145 H Lactic Acid Calcium Ionized Calcium Phosphorus Magnesium Total Bilirubin AST ALT Alkaline Phosphatase Ammonia Total Creatine Kinase CK-MB (CK-2) CK-MB (CK-2) Rel Index Total Protein Albumin Urine WBC (Auto) Vancomycin Trough Salicylates Acetaminophen Plasma/Serum Alcohol Crossmatch 12/27/19 12/27/19 12/27/19 00:01 03:42 03:42 WBC 18.0 H RBC 2.86 L Hgb 8.0 L Hct 25.2 L MCH RDW 19.2 H Plt Count 873 H Lymph % (Auto) 8.4 L [place] % (Auto) 7.5 H [place] # 1.4 H Baso # 0.2 H Seg Neutrophils % 82.2 H Seg Neuts % (Manual) Lymphocytes % (Manual) Monocytes % (Manual) Seg Neutrophils # 14.8 H Seg Neutrophils # Man Lymphocytes # (Manual) Monocytes # (Manual) Eosinophils # (Manual) Basophils # (Manual) PT INR APTT ABG pH ABG pO2 ABG HCO3 ABG O2 Saturation ABG Base Excess ABG Hemoglobin Oxyhemoglobin Sodium Potassium Chloride Carbon Dioxide BUN 73 H Creatinine 1.4 H Glucose 119 H POC Glucose 124 H Lactic Acid Calcium Ionized Calcium Phosphorus Magnesium Total Bilirubin AST ALT Alkaline Phosphatase Ammonia Total Creatine Kinase CK-MB (CK-2) CK-MB (CK-2) Rel Index Total Protein Albumin Urine WBC (Auto) Vancomycin Trough Salicylates Acetaminophen Plasma/Serum Alcohol Crossmatch 12/27/19 12/27/19 12/27/19 05:45 11:45 17:29 WBC RBC Hgb Hct MCH RDW Plt Count Lymph % (Auto) [place] % (Auto) [place] # Baso # Seg Neutrophils % Seg Neuts % (Manual) Lymphocytes % (Manual) Monocytes % (Manual) Seg Neutrophils # Seg Neutrophils # Man Lymphocytes # (Manual) Monocytes # (Manual) Eosinophils # (Manual) Basophils # (Manual) PT INR APTT ABG pH ABG pO2 ABG HCO3 ABG O2 Saturation ABG Base Excess ABG Hemoglobin Oxyhemoglobin Sodium Potassium Chloride Carbon Dioxide BUN Creatinine Glucose POC Glucose 131 H 123 H 134 H Lactic Acid Calcium Ionized Calcium Phosphorus Magnesium Total Bilirubin AST ALT Alkaline Phosphatase Ammonia Total Creatine Kinase CK-MB (CK-2) CK-MB (CK-2) Rel Index Total Protein Albumin Urine WBC (Auto) Vancomycin Trough Salicylates Acetaminophen Plasma/Serum Alcohol Crossmatch 12/28/19 12/28/19 12/28/19 00:12 05:14 11:53 WBC RBC Hgb Hct MCH RDW Plt Count Lymph % (Auto) [place] % (Auto) [place] # Baso # Seg Neutrophils % Seg Neuts % (Manual) Lymphocytes % (Manual) Monocytes % (Manual) Seg Neutrophils # Seg Neutrophils # Man Lymphocytes # (Manual) Monocytes # (Manual) Eosinophils # (Manual) Basophils # (Manual) PT INR APTT ABG pH ABG pO2 ABG HCO3 ABG O2 Saturation ABG Base Excess ABG Hemoglobin Oxyhemoglobin Sodium Potassium Chloride Carbon Dioxide BUN Creatinine Glucose POC Glucose 138 H 130 H 146 H Lactic Acid Calcium Ionized Calcium Phosphorus Magnesium Total Bilirubin AST ALT Alkaline Phosphatase Ammonia Total Creatine Kinase CK-MB (CK-2) CK-MB (CK-2) Rel Index Total Protein Albumin Urine WBC (Auto) Vancomycin Trough Salicylates Acetaminophen Plasma/Serum Alcohol Crossmatch 12/28/19 12/29/19 12/29/19 17:39 00:01 18:11 WBC RBC Hgb Hct MCH RDW Plt Count Lymph % (Auto) [place] % (Auto) [place] # Baso # Seg Neutrophils % Seg Neuts % (Manual) Lymphocytes % (Manual) Monocytes % (Manual) Seg Neutrophils # Seg Neutrophils # Man Lymphocytes # (Manual) Monocytes # (Manual) Eosinophils # (Manual) Basophils # (Manual) PT INR APTT ABG pH ABG pO2 ABG HCO3 ABG O2 Saturation ABG Base Excess ABG Hemoglobin Oxyhemoglobin Sodium Potassium Chloride Carbon Dioxide BUN Creatinine Glucose POC Glucose 117 H 139 H 130 H Lactic Acid Calcium Ionized Calcium Phosphorus Magnesium Total Bilirubin AST ALT Alkaline Phosphatase Ammonia Total Creatine Kinase CK-MB (CK-2) CK-MB (CK-2) Rel Index Total Protein Albumin Urine WBC (Auto) Vancomycin Trough Salicylates Acetaminophen Plasma/Serum Alcohol Crossmatch 12/29/19 12/30/19 12/30/19 23:09 00:02 01:06 WBC 16.7 H RBC 2.91 L Hgb 8.2 L Hct 25.4 L MCH RDW 18.7 H Plt Count 708 H Lymph % (Auto) 9.4 L [place] % (Auto) [place] # 0.9 H Baso # Seg Neutrophils % 83.5 H Seg Neuts % (Manual) Lymphocytes % (Manual) Monocytes % (Manual) Seg Neutrophils # 14.0 H Seg Neutrophils # Man Lymphocytes # (Manual) Monocytes # (Manual) Eosinophils # (Manual) Basophils # (Manual) PT INR APTT ABG pH ABG pO2 ABG HCO3 ABG O2 Saturation ABG Base Excess ABG Hemoglobin Oxyhemoglobin Sodium Potassium Chloride Carbon Dioxide BUN Creatinine Glucose POC Glucose 120 H 114 H Lactic Acid Calcium Ionized Calcium Phosphorus Magnesium Total Bilirubin AST ALT Alkaline Phosphatase Ammonia Total Creatine Kinase CK-MB (CK-2) CK-MB (CK-2) Rel Index Total Protein Albumin Urine WBC (Auto) Vancomycin Trough Salicylates Acetaminophen Plasma/Serum Alcohol Crossmatch 12/30/19 12/30/19 12/30/19 01:06 04:23 05:18 WBC RBC Hgb Hct MCH RDW Plt Count Lymph % (Auto) [place] % (Auto) [place] # Baso # Seg Neutrophils % Seg Neuts % (Manual) Lymphocytes % (Manual) Monocytes % (Manual) Seg Neutrophils # Seg Neutrophils # Man Lymphocytes # (Manual) Monocytes # (Manual) Eosinophils # (Manual) Basophils # (Manual) PT INR APTT ABG pH ABG pO2 ABG HCO3 ABG O2 Saturation ABG Base Excess ABG Hemoglobin 8.3 L Oxyhemoglobin Sodium Potassium Chloride Carbon Dioxide BUN 70 H Creatinine Glucose 122 H POC Glucose 130 H Lactic Acid Calcium Ionized Calcium Phosphorus Magnesium Total Bilirubin AST ALT Alkaline Phosphatase Ammonia Total Creatine Kinase CK-MB (CK-2) CK-MB (CK-2) Rel Index Total Protein Albumin Urine WBC (Auto) Vancomycin Trough Salicylates Acetaminophen Plasma/Serum Alcohol Crossmatch 12/30/19 12/30/19 12/30/19 05:40 12:17 17:43 WBC RBC Hgb Hct MCH RDW Plt Count Lymph % (Auto) [place] % (Auto) [place] # Baso # Seg Neutrophils % Seg Neuts % (Manual) Lymphocytes % (Manual) Monocytes % (Manual) Seg Neutrophils # Seg Neutrophils # Man Lymphocytes # (Manual) Monocytes # (Manual) Eosinophils # (Manual) Basophils # (Manual) PT INR APTT ABG pH ABG pO2 ABG HCO3 ABG O2 Saturation ABG Base Excess ABG Hemoglobin Oxyhemoglobin Sodium Potassium Chloride Carbon Dioxide BUN Creatinine Glucose POC Glucose 135 H 132 H 118 H Lactic Acid Calcium Ionized Calcium Phosphorus Magnesium Total Bilirubin AST ALT Alkaline Phosphatase Ammonia Total Creatine Kinase CK-MB (CK-2) CK-MB (CK-2) Rel Index Total Protein Albumin Urine WBC (Auto) Vancomycin Trough Salicylates Acetaminophen Plasma/Serum Alcohol Crossmatch 04/12/20 04/13/20 04/13/20 23:29 05:19 17:50 WBC RBC Hgb Hct MCH RDW Plt Count Lymph % (Auto) [place] % (Auto) [place] # Baso # Seg Neutrophils % Seg Neuts % (Manual) Lymphocytes % (Manual) Monocytes % (Manual) Seg Neutrophils # Seg Neutrophils # Man Lymphocytes # (Manual) Monocytes # (Manual) Eosinophils # (Manual) Basophils # (Manual) PT INR APTT ABG pH ABG pO2 ABG HCO3 ABG O2 Saturation ABG Base Excess ABG Hemoglobin Oxyhemoglobin Sodium Potassium Chloride Carbon Dioxide BUN Creatinine Glucose POC Glucose 114 H 109 H 116 H Lactic Acid Calcium Ionized Calcium Phosphorus Magnesium Total Bilirubin AST ALT Alkaline Phosphatase Ammonia Total Creatine Kinase CK-MB (CK-2) CK-MB (CK-2) Rel Index Total Protein Albumin Urine WBC (Auto) Vancomycin Trough Salicylates Acetaminophen Plasma/Serum Alcohol Crossmatch 01/01/20 01/01/20 01/01/20 00:10 05:19 12:02 WBC RBC Hgb Hct MCH RDW Plt Count Lymph % (Auto) [place] % (Auto) [place] # Baso # Seg Neutrophils % Seg Neuts % (Manual) Lymphocytes % (Manual) Monocytes % (Manual) Seg Neutrophils # Seg Neutrophils # Man Lymphocytes # (Manual) Monocytes # (Manual) Eosinophils # (Manual) Basophils # (Manual) PT INR APTT ABG pH ABG pO2 ABG HCO3 ABG O2 Saturation ABG Base Excess ABG Hemoglobin Oxyhemoglobin Sodium Potassium Chloride Carbon Dioxide BUN Creatinine Glucose POC Glucose 131 H 122 H 136 H Lactic Acid Calcium Ionized Calcium Phosphorus Magnesium Total Bilirubin AST ALT Alkaline Phosphatase Ammonia Total Creatine Kinase CK-MB (CK-2) CK-MB (CK-2) Rel Index Total Protein Albumin Urine WBC (Auto) Vancomycin Trough Salicylates Acetaminophen Plasma/Serum Alcohol Crossmatch 01/02/20 01/02/20 01/02/20 00:24 05:36 11:41 WBC RBC Hgb Hct MCH RDW Plt Count Lymph % (Auto) [place] % (Auto) [place] # Baso # Seg Neutrophils % Seg Neuts % (Manual) Lymphocytes % (Manual) Monocytes % (Manual) Seg Neutrophils # Seg Neutrophils # Man Lymphocytes # (Manual) Monocytes # (Manual) Eosinophils # (Manual) Basophils # (Manual) PT INR APTT ABG pH ABG pO2 ABG HCO3 ABG O2 Saturation ABG Base Excess ABG Hemoglobin Oxyhemoglobin Sodium Potassium Chloride Carbon Dioxide BUN Creatinine Glucose POC Glucose 119 H 109 H 125 H Lactic Acid Calcium Ionized Calcium Phosphorus Magnesium Total Bilirubin AST ALT Alkaline Phosphatase Ammonia Total Creatine Kinase CK-MB (CK-2) CK-MB (CK-2) Rel Index Total Protein Albumin Urine WBC (Auto) Vancomycin Trough Salicylates Acetaminophen Plasma/Serum Alcohol Crossmatch 01/02/20 01/03/20 01/03/20 17:49 05:29 12:13 WBC RBC Hgb Hct MCH RDW Plt Count Lymph % (Auto) [place] % (Auto) [place] # Baso # Seg Neutrophils % Seg Neuts % (Manual) Lymphocytes % (Manual) Monocytes % (Manual) Seg Neutrophils # Seg Neutrophils # Man Lymphocytes # (Manual) Monocytes # (Manual) Eosinophils # (Manual) Basophils # (Manual) PT INR APTT ABG pH ABG pO2 ABG HCO3 ABG O2 Saturation ABG Base Excess ABG Hemoglobin Oxyhemoglobin Sodium Potassium Chloride Carbon Dioxide BUN Creatinine Glucose POC Glucose 130 H 132 H 113 H Lactic Acid Calcium Ionized Calcium Phosphorus Magnesium Total Bilirubin AST ALT Alkaline Phosphatase Ammonia Total Creatine Kinase CK-MB (CK-2) CK-MB (CK-2) Rel Index Total Protein Albumin Urine WBC (Auto) Vancomycin Trough Salicylates Acetaminophen Plasma/Serum Alcohol Crossmatch 01/03/20 01/04/20 01/04/20 17:32 00:19 05:26 WBC RBC Hgb Hct MCH RDW Plt Count Lymph % (Auto) [place] % (Auto) [place] # Baso # Seg Neutrophils % Seg Neuts % (Manual) Lymphocytes % (Manual) Monocytes % (Manual) Seg Neutrophils # Seg Neutrophils # Man Lymphocytes # (Manual) Monocytes # (Manual) Eosinophils # (Manual) Basophils # (Manual) PT INR APTT ABG pH ABG pO2 ABG HCO3 ABG O2 Saturation ABG Base Excess ABG Hemoglobin Oxyhemoglobin Sodium Potassium Chloride Carbon Dioxide BUN Creatinine Glucose POC Glucose 127 H 141 H 129 H Lactic Acid Calcium Ionized Calcium Phosphorus Magnesium Total Bilirubin AST ALT Alkaline Phosphatase Ammonia Total Creatine Kinase CK-MB (CK-2) CK-MB (CK-2) Rel Index Total Protein Albumin Urine WBC (Auto) Vancomycin Trough Salicylates Acetaminophen Plasma/Serum Alcohol Crossmatch 01/04/20 01/04/20 01/05/20 11:39 17:29 05:22 WBC RBC Hgb Hct MCH RDW Plt Count Lymph % (Auto) [place] % (Auto) [place] # Baso # Seg Neutrophils % Seg Neuts % (Manual) Lymphocytes % (Manual) Monocytes % (Manual) Seg Neutrophils # Seg Neutrophils # Man Lymphocytes # (Manual) Monocytes # (Manual) Eosinophils # (Manual) Basophils # (Manual) PT INR APTT ABG pH ABG pO2 ABG HCO3 ABG O2 Saturation ABG Base Excess ABG Hemoglobin Oxyhemoglobin Sodium Potassium Chloride Carbon Dioxide BUN Creatinine Glucose POC Glucose 167 H 132 H 121 H Lactic Acid Calcium Ionized Calcium Phosphorus Magnesium Total Bilirubin AST ALT Alkaline Phosphatase Ammonia Total Creatine Kinase CK-MB (CK-2) CK-MB (CK-2) Rel Index Total Protein Albumin Urine WBC (Auto) Vancomycin Trough Salicylates Acetaminophen Plasma/Serum Alcohol Crossmatch 01/05/20 01/05/20 01/05/20 12:25 17:40 18:06 WBC RBC Hgb Hct MCH RDW Plt Count Lymph % (Auto) [place] % (Auto) [place] # Baso # Seg Neutrophils % Seg Neuts % (Manual) Lymphocytes % (Manual) Monocytes % (Manual) Seg Neutrophils # Seg Neutrophils # Man Lymphocytes # (Manual) Monocytes # (Manual) Eosinophils # (Manual) Basophils # (Manual) PT INR APTT ABG pH 7.472 H ABG pO2 99.2 H ABG HCO3 ABG O2 Saturation ABG Base Excess ABG Hemoglobin 7.8 L Oxyhemoglobin Sodium Potassium Chloride Carbon Dioxide BUN Creatinine Glucose POC Glucose 106 H 110 H Lactic Acid Calcium Ionized Calcium Phosphorus Magnesium Total Bilirubin AST ALT Alkaline Phosphatase Ammonia Total Creatine Kinase CK-MB (CK-2) CK-MB (CK-2) Rel Index Total Protein Albumin Urine WBC (Auto) Vancomycin Trough Salicylates Acetaminophen Plasma/Serum Alcohol Crossmatch 01/06/20 01/06/20 01/06/20 00:11 05:16 11:30 WBC RBC Hgb Hct MCH RDW Plt Count Lymph % (Auto) [place] % (Auto) [place] # Baso # Seg Neutrophils % Seg Neuts % (Manual) Lymphocytes % (Manual) Monocytes % (Manual) Seg Neutrophils # Seg Neutrophils # Man Lymphocytes # (Manual) Monocytes # (Manual) Eosinophils # (Manual) Basophils # (Manual) PT INR APTT ABG pH ABG pO2 ABG HCO3 ABG O2 Saturation ABG Base Excess ABG Hemoglobin Oxyhemoglobin Sodium Potassium Chloride Carbon Dioxide BUN Creatinine Glucose POC Glucose 108 H 124 H 125 H Lactic Acid Calcium Ionized Calcium Phosphorus Magnesium Total Bilirubin AST ALT Alkaline Phosphatase Ammonia Total Creatine Kinase CK-MB (CK-2) CK-MB (CK-2) Rel Index Total Protein Albumin Urine WBC (Auto) Vancomycin Trough Salicylates Acetaminophen Plasma/Serum Alcohol Crossmatch 01/06/20 01/06/20 01/07/20 17:53 23:51 04:12 WBC 16.5 H RBC 3.29 L Hgb 9.3 L Hct 28.1 L MCH RDW 18.2 H Plt Count 526 H Lymph % (Auto) 8.4 L [place] % (Auto) [place] # 1.0 H Baso # Seg Neutrophils % 84.4 H Seg Neuts % (Manual) Lymphocytes % (Manual) Monocytes % (Manual) Seg Neutrophils # 13.9 H Seg Neutrophils # Man Lymphocytes # (Manual) Monocytes # (Manual) Eosinophils # (Manual) Basophils # (Manual) PT INR APTT ABG pH ABG pO2 ABG HCO3 ABG O2 Saturation ABG Base Excess ABG Hemoglobin Oxyhemoglobin Sodium Potassium Chloride Carbon Dioxide BUN Creatinine Glucose POC Glucose 166 H 128 H Lactic Acid Calcium Ionized Calcium Phosphorus Magnesium Total Bilirubin AST ALT Alkaline Phosphatase Ammonia Total Creatine Kinase CK-MB (CK-2) CK-MB (CK-2) Rel Index Total Protein Albumin Urine WBC (Auto) Vancomycin Trough Salicylates Acetaminophen Plasma/Serum Alcohol Crossmatch 01/07/20 01/07/20 01/07/20 04:12 04:45 11:51 WBC RBC Hgb Hct MCH RDW Plt Count Lymph % (Auto) [place] % (Auto) [place] # Baso # Seg Neutrophils % Seg Neuts % (Manual) Lymphocytes % (Manual) Monocytes % (Manual) Seg Neutrophils # Seg Neutrophils # Man Lymphocytes # (Manual) Monocytes # (Manual) Eosinophils # (Manual) Basophils # (Manual) PT INR APTT ABG pH ABG pO2 ABG HCO3 ABG O2 Saturation ABG Base Excess ABG Hemoglobin Oxyhemoglobin Sodium 136 L Potassium Chloride Carbon Dioxide 21 L BUN 44 H Creatinine 0.6 L Glucose 124 H POC Glucose 134 H 138 H Lactic Acid Calcium Ionized Calcium Phosphorus Magnesium Total Bilirubin AST ALT Alkaline Phosphatase Ammonia Total Creatine Kinase CK-MB (CK-2) CK-MB (CK-2) Rel Index Total Protein Albumin Urine WBC (Auto) Vancomycin Trough Salicylates Acetaminophen Plasma/Serum Alcohol Crossmatch 01/07/20 01/08/20 01/08/20 17:36 00:33 05:29 WBC RBC Hgb Hct MCH RDW Plt Count Lymph % (Auto) [place] % (Auto) [place] # Baso # Seg Neutrophils % Seg Neuts % (Manual) Lymphocytes % (Manual) Monocytes % (Manual) Seg Neutrophils # Seg Neutrophils # Man Lymphocytes # (Manual) Monocytes # (Manual) Eosinophils # (Manual) Basophils # (Manual) PT INR APTT ABG pH ABG pO2 ABG HCO3 ABG O2 Saturation ABG Base Excess ABG Hemoglobin Oxyhemoglobin Sodium Potassium Chloride Carbon Dioxide BUN Creatinine Glucose POC Glucose 128 H 119 H 124 H Lactic Acid Calcium Ionized Calcium Phosphorus Magnesium Total Bilirubin AST ALT Alkaline Phosphatase Ammonia Total Creatine Kinase CK-MB (CK-2) CK-MB (CK-2) Rel Index Total Protein Albumin Urine WBC (Auto) Vancomycin Trough Salicylates Acetaminophen Plasma/Serum Alcohol Crossmatch 01/08/20 01/08/20 01/08/20 12:51 20:25 23:22 WBC RBC Hgb Hct MCH RDW Plt Count Lymph % (Auto) [place] % (Auto) [place] # Baso # Seg Neutrophils % Seg Neuts % (Manual) Lymphocytes % (Manual) Monocytes % (Manual) Seg Neutrophils # Seg Neutrophils # Man Lymphocytes # (Manual) Monocytes # (Manual) Eosinophils # (Manual) Basophils # (Manual) PT INR APTT ABG pH ABG pO2 132.2 H ABG HCO3 ABG O2 Saturation ABG Base Excess ABG Hemoglobin Oxyhemoglobin Sodium Potassium Chloride Carbon Dioxide BUN Creatinine Glucose POC Glucose 128 H 127 H Lactic Acid Calcium Ionized Calcium Phosphorus Magnesium Total Bilirubin AST ALT Alkaline Phosphatase Ammonia Total Creatine Kinase CK-MB (CK-2) CK-MB (CK-2) Rel Index Total Protein Albumin Urine WBC (Auto) Vancomycin Trough Salicylates Acetaminophen Plasma/Serum Alcohol Crossmatch 01/09/20 01/09/20 01/09/20 05:48 08:51 11:29 WBC RBC Hgb Hct MCH RDW Plt Count Lymph % (Auto) [place] % (Auto) [place] # Baso # Seg Neutrophils % Seg Neuts % (Manual) Lymphocytes % (Manual) Monocytes % (Manual) Seg Neutrophils # Seg Neutrophils # Man Lymphocytes # (Manual) Monocytes # (Manual) Eosinophils # (Manual) Basophils # (Manual) PT INR APTT ABG pH ABG pO2 94.3 H ABG HCO3 ABG O2 Saturation ABG Base Excess ABG Hemoglobin 9.5 L Oxyhemoglobin Sodium Potassium Chloride Carbon Dioxide BUN Creatinine Glucose POC Glucose 120 H 112 H Lactic Acid Calcium Ionized Calcium Phosphorus Magnesium Total Bilirubin AST ALT Alkaline Phosphatase Ammonia Total Creatine Kinase CK-MB (CK-2) CK-MB (CK-2) Rel Index Total Protein Albumin Urine WBC (Auto) Vancomycin Trough Salicylates Acetaminophen Plasma/Serum Alcohol Crossmatch 01/09/20 01/10/20 01/10/20 17:57 05:17 12:28 WBC RBC Hgb Hct MCH RDW Plt Count Lymph % (Auto) [place] % (Auto) [place] # Baso # Seg Neutrophils % Seg Neuts % (Manual) Lymphocytes % (Manual) Monocytes % (Manual) Seg Neutrophils # Seg Neutrophils # Man Lymphocytes # (Manual) Monocytes # (Manual) Eosinophils # (Manual) Basophils # (Manual) PT INR APTT ABG pH ABG pO2 ABG HCO3 ABG O2 Saturation ABG Base Excess ABG Hemoglobin Oxyhemoglobin Sodium Potassium Chloride Carbon Dioxide BUN Creatinine Glucose POC Glucose 122 H 115 H 116 H Lactic Acid Calcium Ionized Calcium Phosphorus Magnesium Total Bilirubin AST ALT Alkaline Phosphatase Ammonia Total Creatine Kinase CK-MB (CK-2) CK-MB (CK-2) Rel Index Total Protein Albumin Urine WBC (Auto) Vancomycin Trough Salicylates Acetaminophen Plasma/Serum Alcohol Crossmatch 01/10/20 01/10/20 01/11/20 18:25 23:47 06:05 WBC RBC Hgb Hct MCH RDW Plt Count Lymph % (Auto) [place] % (Auto) [place] # Baso # Seg Neutrophils % Seg Neuts % (Manual) Lymphocytes % (Manual) Monocytes % (Manual) Seg Neutrophils # Seg Neutrophils # Man Lymphocytes # (Manual) Monocytes # (Manual) Eosinophils # (Manual) Basophils # (Manual) PT INR APTT ABG pH ABG pO2 ABG HCO3 ABG O2 Saturation ABG Base Excess ABG Hemoglobin Oxyhemoglobin Sodium Potassium Chloride Carbon Dioxide BUN Creatinine Glucose POC Glucose 123 H 115 H 151 H Lactic Acid Calcium Ionized Calcium Phosphorus Magnesium Total Bilirubin AST ALT Alkaline Phosphatase Ammonia Total Creatine Kinase CK-MB (CK-2) CK-MB (CK-2) Rel Index Total Protein Albumin Urine WBC (Auto) Vancomycin Trough Salicylates Acetaminophen Plasma/Serum Alcohol Crossmatch 01/11/20 01/11/20 01/11/20 07:00 07:00 12:27 WBC 11.8 H RBC 3.40 L Hgb 9.4 L Hct 29.3 L MCH RDW 18.1 H Plt Count 549 H Lymph % (Auto) [place] % (Auto) 9.1 H [place] # 1.1 H Baso # Seg Neutrophils % 73.3 H Seg Neuts % (Manual) Lymphocytes % (Manual) Monocytes % (Manual) Seg Neutrophils # 8.7 H Seg Neutrophils # Man Lymphocytes # (Manual) Monocytes # (Manual) Eosinophils # (Manual) Basophils # (Manual) PT INR APTT ABG pH ABG pO2 ABG HCO3 ABG O2 Saturation ABG Base Excess ABG Hemoglobin Oxyhemoglobin Sodium 134 L Potassium Chloride 97.7 L Carbon Dioxide 21 L BUN 38 H Creatinine 0.5 L Glucose 168 H POC Glucose 117 H Lactic Acid Calcium 10.5 H Ionized Calcium Phosphorus Magnesium Total Bilirubin AST ALT Alkaline Phosphatase Ammonia Total Creatine Kinase CK-MB (CK-2) CK-MB (CK-2) Rel Index Total Protein Albumin Urine WBC (Auto) Vancomycin Trough Salicylates Acetaminophen Plasma/Serum Alcohol Crossmatch 01/11/20 01/12/20 01/12/20 18:19 00:53 05:24 WBC RBC Hgb Hct MCH RDW Plt Count Lymph % (Auto) [place] % (Auto) [place] # Baso # Seg Neutrophils % Seg Neuts % (Manual) Lymphocytes % (Manual) Monocytes % (Manual) Seg Neutrophils # Seg Neutrophils # Man Lymphocytes # (Manual) Monocytes # (Manual) Eosinophils # (Manual) Basophils # (Manual) PT INR APTT ABG pH ABG pO2 ABG HCO3 ABG O2 Saturation ABG Base Excess ABG Hemoglobin Oxyhemoglobin Sodium Potassium Chloride Carbon Dioxide BUN Creatinine Glucose POC Glucose 126 H 126 H 128 H Lactic Acid Calcium Ionized Calcium Phosphorus Magnesium Total Bilirubin AST ALT Alkaline Phosphatase Ammonia Total Creatine Kinase CK-MB (CK-2) CK-MB (CK-2) Rel Index Total Protein Albumin Urine WBC (Auto) Vancomycin Trough Salicylates Acetaminophen Plasma/Serum Alcohol Crossmatch 01/12/20 01/12/20 01/13/20 13:39 18:02 00:27 WBC RBC Hgb Hct MCH RDW Plt Count Lymph % (Auto) [place] % (Auto) [place] # Baso # Seg Neutrophils % Seg Neuts % (Manual) Lymphocytes % (Manual) Monocytes % (Manual) Seg Neutrophils # Seg Neutrophils # Man Lymphocytes # (Manual) Monocytes # (Manual) Eosinophils # (Manual) Basophils # (Manual) PT INR APTT ABG pH ABG pO2 ABG HCO3 ABG O2 Saturation ABG Base Excess ABG Hemoglobin Oxyhemoglobin Sodium Potassium Chloride Carbon Dioxide BUN Creatinine Glucose POC Glucose 146 H 125 H 131 H Lactic Acid Calcium Ionized Calcium Phosphorus Magnesium Total Bilirubin AST ALT Alkaline Phosphatase Ammonia Total Creatine Kinase CK-MB (CK-2) CK-MB (CK-2) Rel Index Total Protein Albumin Urine WBC (Auto) Vancomycin Trough Salicylates Acetaminophen Plasma/Serum Alcohol Crossmatch 01/13/20 01/13/20 01/13/20 05:44 11:54 17:18 WBC RBC Hgb Hct MCH RDW Plt Count Lymph % (Auto) [place] % (Auto) [place] # Baso # Seg Neutrophils % Seg Neuts % (Manual) Lymphocytes % (Manual) Monocytes % (Manual) Seg Neutrophils # Seg Neutrophils # Man Lymphocytes # (Manual) Monocytes # (Manual) Eosinophils # (Manual) Basophils # (Manual) PT INR APTT ABG pH ABG pO2 ABG HCO3 ABG O2 Saturation ABG Base Excess ABG Hemoglobin Oxyhemoglobin Sodium Potassium Chloride Carbon Dioxide BUN Creatinine Glucose POC Glucose 148 H 140 H 130 H Lactic Acid Calcium Ionized Calcium Phosphorus Magnesium Total Bilirubin AST ALT Alkaline Phosphatase Ammonia Total Creatine Kinase CK-MB (CK-2) CK-MB (CK-2) Rel Index Total Protein Albumin Urine WBC (Auto) Vancomycin Trough Salicylates Acetaminophen Plasma/Serum Alcohol Crossmatch 01/14/20 01/14/20 01/14/20 00:16 05:45 12:19 WBC RBC Hgb Hct MCH RDW Plt Count Lymph % (Auto) [place] % (Auto) [place] # Baso # Seg Neutrophils % Seg Neuts % (Manual) Lymphocytes % (Manual) Monocytes % (Manual) Seg Neutrophils # Seg Neutrophils # Man Lymphocytes # (Manual) Monocytes # (Manual) Eosinophils # (Manual) Basophils # (Manual) PT INR APTT ABG pH ABG pO2 ABG HCO3 ABG O2 Saturation ABG Base Excess ABG Hemoglobin Oxyhemoglobin Sodium Potassium Chloride Carbon Dioxide BUN Creatinine Glucose POC Glucose 125 H 146 H 147 H Lactic Acid Calcium Ionized Calcium Phosphorus Magnesium Total Bilirubin AST ALT Alkaline Phosphatase Ammonia Total Creatine Kinase CK-MB (CK-2) CK-MB (CK-2) Rel Index Total Protein Albumin Urine WBC (Auto) Vancomycin Trough Salicylates Acetaminophen Plasma/Serum Alcohol Crossmatch 01/14/20 01/14/20 01/15/20 18:10 23:54 05:14 WBC RBC Hgb Hct MCH RDW Plt Count Lymph % (Auto) [place] % (Auto) [place] # Baso # Seg Neutrophils % Seg Neuts % (Manual) Lymphocytes % (Manual) Monocytes % (Manual) Seg Neutrophils # Seg Neutrophils # Man Lymphocytes # (Manual) Monocytes # (Manual) Eosinophils # (Manual) Basophils # (Manual) PT INR APTT ABG pH ABG pO2 ABG HCO3 ABG O2 Saturation ABG Base Excess ABG Hemoglobin Oxyhemoglobin Sodium Potassium Chloride Carbon Dioxide BUN Creatinine Glucose POC Glucose 136 H 109 H 111 H Lactic Acid Calcium Ionized Calcium Phosphorus Magnesium Total Bilirubin AST ALT Alkaline Phosphatase Ammonia Total Creatine Kinase CK-MB (CK-2) CK-MB (CK-2) Rel Index Total Protein Albumin Urine WBC (Auto) Vancomycin Trough Salicylates Acetaminophen Plasma/Serum Alcohol Crossmatch 01/15/20 01/15/20 01/16/20 12:34 23:25 05:06 WBC RBC Hgb Hct MCH RDW Plt Count Lymph % (Auto) [place] % (Auto) [place] # Baso # Seg Neutrophils % Seg Neuts % (Manual) Lymphocytes % (Manual) Monocytes % (Manual) Seg Neutrophils # Seg Neutrophils # Man Lymphocytes # (Manual) Monocytes # (Manual) Eosinophils # (Manual) Basophils # (Manual) PT INR APTT ABG pH ABG pO2 ABG HCO3 ABG O2 Saturation ABG Base Excess ABG Hemoglobin Oxyhemoglobin Sodium Potassium Chloride Carbon Dioxide BUN Creatinine Glucose POC Glucose 131 H 120 H 121 H Lactic Acid Calcium Ionized Calcium Phosphorus Magnesium Total Bilirubin AST ALT Alkaline Phosphatase Ammonia Total Creatine Kinase CK-MB (CK-2) CK-MB (CK-2) Rel Index Total Protein Albumin Urine WBC (Auto) Vancomycin Trough Salicylates Acetaminophen Plasma/Serum Alcohol Crossmatch 01/16/20 01/16/20 01/17/20 12:15 23:46 05:32 WBC 13.6 H RBC 3.27 L Hgb 9.3 L Hct 28.5 L MCH RDW 17.0 H Plt Count 490 H Lymph % (Auto) 13.1 L [place] % (Auto) [place] # 1.0 H Baso # Seg Neutrophils % 77.5 H Seg Neuts % (Manual) Lymphocytes % (Manual) Monocytes % (Manual) Seg Neutrophils # 10.5 H Seg Neutrophils # Man Lymphocytes # (Manual) Monocytes # (Manual) Eosinophils # (Manual) Basophils # (Manual) PT INR APTT ABG pH ABG pO2 ABG HCO3 ABG O2 Saturation ABG Base Excess ABG Hemoglobin Oxyhemoglobin Sodium Potassium Chloride Carbon Dioxide BUN Creatinine Glucose POC Glucose 152 H 107 H Lactic Acid Calcium Ionized Calcium Phosphorus Magnesium Total Bilirubin AST ALT Alkaline Phosphatase Ammonia Total Creatine Kinase CK-MB (CK-2) CK-MB (CK-2) Rel Index Total Protein Albumin Urine WBC (Auto) Vancomycin Trough Salicylates Acetaminophen Plasma/Serum Alcohol Crossmatch 01/17/20 01/17/20 01/17/20 06:47 12:16 17:21 WBC RBC Hgb Hct MCH RDW Plt Count Lymph % (Auto) [place] % (Auto) [place] # Baso # Seg Neutrophils % Seg Neuts % (Manual) Lymphocytes % (Manual) Monocytes % (Manual) Seg Neutrophils # Seg Neutrophils # Man Lymphocytes # (Manual) Monocytes # (Manual) Eosinophils # (Manual) Basophils # (Manual) PT INR APTT ABG pH ABG pO2 ABG HCO3 ABG O2 Saturation ABG Base Excess ABG Hemoglobin Oxyhemoglobin Sodium Potassium Chloride Carbon Dioxide BUN Creatinine Glucose POC Glucose 112 H 145 H 150 H Lactic Acid Calcium Ionized Calcium Phosphorus Magnesium Total Bilirubin AST ALT Alkaline Phosphatase Ammonia Total Creatine Kinase CK-MB (CK-2) CK-MB (CK-2) Rel Index Total Protein Albumin Urine WBC (Auto) Vancomycin Trough Salicylates Acetaminophen Plasma/Serum Alcohol Crossmatch 01/17/20 01/18/20 01/18/20 23:34 05:47 12:43 WBC RBC Hgb Hct MCH RDW Plt Count Lymph % (Auto) [place] % (Auto) [place] # Baso # Seg Neutrophils % Seg Neuts % (Manual) Lymphocytes % (Manual) Monocytes % (Manual) Seg Neutrophils # Seg Neutrophils # Man Lymphocytes # (Manual) Monocytes # (Manual) Eosinophils # (Manual) Basophils # (Manual) PT INR APTT ABG pH ABG pO2 ABG HCO3 ABG O2 Saturation ABG Base Excess ABG Hemoglobin Oxyhemoglobin Sodium Potassium Chloride Carbon Dioxide BUN Creatinine Glucose POC Glucose 160 H 130 H 124 H Lactic Acid Calcium Ionized Calcium Phosphorus Magnesium Total Bilirubin AST ALT Alkaline Phosphatase Ammonia Total Creatine Kinase CK-MB (CK-2) CK-MB (CK-2) Rel Index Total Protein Albumin Urine WBC (Auto) Vancomycin Trough Salicylates Acetaminophen Plasma/Serum Alcohol Crossmatch 01/18/20 01/19/20 01/19/20 18:26 00:14 06:24 WBC RBC Hgb Hct MCH RDW Plt Count Lymph % (Auto) [place] % (Auto) [place] # Baso # Seg Neutrophils % Seg Neuts % (Manual) Lymphocytes % (Manual) Monocytes % (Manual) Seg Neutrophils # Seg Neutrophils # Man Lymphocytes # (Manual) Monocytes # (Manual) Eosinophils # (Manual) Basophils # (Manual) PT INR APTT ABG pH ABG pO2 ABG HCO3 ABG O2 Saturation ABG Base Excess ABG Hemoglobin Oxyhemoglobin Sodium Potassium Chloride Carbon Dioxide BUN Creatinine Glucose POC Glucose 119 H 114 H 144 H Lactic Acid Calcium Ionized Calcium Phosphorus Magnesium Total Bilirubin AST ALT Alkaline Phosphatase Ammonia Total Creatine Kinase CK-MB (CK-2) CK-MB (CK-2) Rel Index Total Protein Albumin Urine WBC (Auto) Vancomycin Trough Salicylates Acetaminophen Plasma/Serum Alcohol Crossmatch 01/19/20 01/19/20 01/20/20 12:24 17:50 12:06 WBC RBC Hgb Hct MCH RDW Plt Count Lymph % (Auto) [place] % (Auto) [place] # Baso # Seg Neutrophils % Seg Neuts % (Manual) Lymphocytes % (Manual) Monocytes % (Manual) Seg Neutrophils # Seg Neutrophils # Man Lymphocytes # (Manual) Monocytes # (Manual) Eosinophils # (Manual) Basophils # (Manual) PT INR APTT ABG pH ABG pO2 ABG HCO3 ABG O2 Saturation ABG Base Excess ABG Hemoglobin Oxyhemoglobin Sodium Potassium Chloride Carbon Dioxide BUN Creatinine Glucose POC Glucose 132 H 144 H 135 H Lactic Acid Calcium Ionized Calcium Phosphorus Magnesium Total Bilirubin AST ALT Alkaline Phosphatase Ammonia Total Creatine Kinase CK-MB (CK-2) CK-MB (CK-2) Rel Index Total Protein Albumin Urine WBC (Auto) Vancomycin Trough Salicylates Acetaminophen Plasma/Serum Alcohol Crossmatch 01/21/20 01/21/20 01/21/20 05:46 13:02 23:49 WBC RBC Hgb Hct MCH RDW Plt Count Lymph % (Auto) [place] % (Auto) [place] # Baso # Seg Neutrophils % Seg Neuts % (Manual) Lymphocytes % (Manual) Monocytes % (Manual) Seg Neutrophils # Seg Neutrophils # Man Lymphocytes # (Manual) Monocytes # (Manual) Eosinophils # (Manual) Basophils # (Manual) PT INR APTT ABG pH ABG pO2 ABG HCO3 ABG O2 Saturation ABG Base Excess ABG Hemoglobin Oxyhemoglobin Sodium Potassium Chloride Carbon Dioxide BUN Creatinine Glucose POC Glucose 114 H 136 H 120 H Lactic Acid Calcium Ionized Calcium Phosphorus Magnesium Total Bilirubin AST ALT Alkaline Phosphatase Ammonia Total Creatine Kinase CK-MB (CK-2) CK-MB (CK-2) Rel Index Total Protein Albumin Urine WBC (Auto) Vancomycin Trough Salicylates Acetaminophen Plasma/Serum Alcohol Crossmatch 01/22/20 01/22/20 01/22/20 05:41 11:44 16:31 WBC RBC Hgb Hct MCH RDW Plt Count Lymph % (Auto) [place] % (Auto) [place] # Baso # Seg Neutrophils % Seg Neuts % (Manual) Lymphocytes % (Manual) Monocytes % (Manual) Seg Neutrophils # Seg Neutrophils # Man Lymphocytes # (Manual) Monocytes # (Manual) Eosinophils # (Manual) Basophils # (Manual) PT INR APTT ABG pH ABG pO2 ABG HCO3 ABG O2 Saturation ABG Base Excess ABG Hemoglobin Oxyhemoglobin Sodium Potassium Chloride Carbon Dioxide BUN Creatinine Glucose POC Glucose 124 H 173 H 111 H Lactic Acid Calcium Ionized Calcium Phosphorus Magnesium Total Bilirubin AST ALT Alkaline Phosphatase Ammonia Total Creatine Kinase CK-MB (CK-2) CK-MB (CK-2) Rel Index Total Protein Albumin Urine WBC (Auto) Vancomycin Trough Salicylates Acetaminophen Plasma/Serum Alcohol Crossmatch 01/22/20 01/23/20 01/23/20 23:25 05:15 12:15 WBC RBC Hgb Hct MCH RDW Plt Count Lymph % (Auto) [place] % (Auto) [place] # Baso # Seg Neutrophils % Seg Neuts % (Manual) Lymphocytes % (Manual) Monocytes % (Manual) Seg Neutrophils # Seg Neutrophils # Man Lymphocytes # (Manual) Monocytes # (Manual) Eosinophils # (Manual) Basophils # (Manual) PT INR APTT ABG pH ABG pO2 ABG HCO3 ABG O2 Saturation ABG Base Excess ABG Hemoglobin Oxyhemoglobin Sodium Potassium Chloride Carbon Dioxide BUN Creatinine Glucose POC Glucose 134 H 117 H 129 H Lactic Acid Calcium Ionized Calcium Phosphorus Magnesium Total Bilirubin AST ALT Alkaline Phosphatase Ammonia Total Creatine Kinase CK-MB (CK-2) CK-MB (CK-2) Rel Index Total Protein Albumin Urine WBC (Auto) Vancomycin Trough Salicylates Acetaminophen Plasma/Serum Alcohol Crossmatch 01/23/20 01/23/20 01/23/20 16:58 21:17 23:47 WBC RBC Hgb Hct MCH RDW Plt Count Lymph % (Auto) [place] % (Auto) [place] # Baso # Seg Neutrophils % Seg Neuts % (Manual) Lymphocytes % (Manual) Monocytes % (Manual) Seg Neutrophils # Seg Neutrophils # Man Lymphocytes # (Manual) Monocytes # (Manual) Eosinophils # (Manual) Basophils # (Manual) PT INR APTT ABG pH ABG pO2 ABG HCO3 ABG O2 Saturation ABG Base Excess ABG Hemoglobin Oxyhemoglobin Sodium Potassium Chloride Carbon Dioxide BUN Creatinine Glucose POC Glucose 156 H 185 H 156 H Lactic Acid Calcium Ionized Calcium Phosphorus Magnesium Total Bilirubin AST ALT Alkaline Phosphatase Ammonia Total Creatine Kinase CK-MB (CK-2) CK-MB (CK-2) Rel Index Total Protein Albumin Urine WBC (Auto) Vancomycin Trough Salicylates Acetaminophen Plasma/Serum Alcohol Crossmatch 01/24/20 01/24/20 01/24/20 04:47 04:47 05:59 WBC 17.8 H RBC 3.60 L Hgb Hct MCH RDW 16.2 H Plt Count 688 H Lymph % (Auto) 11.8 L [place] % (Auto) 7.5 H [place] # 1.3 H Baso # Seg Neutrophils % 79.9 H Seg Neuts % (Manual) Lymphocytes % (Manual) Monocytes % (Manual) Seg Neutrophils # 14.2 H Seg Neutrophils # Man Lymphocytes # (Manual) Monocytes # (Manual) Eosinophils # (Manual) Basophils # (Manual) PT INR APTT ABG pH ABG pO2 ABG HCO3 ABG O2 Saturation ABG Base Excess ABG Hemoglobin Oxyhemoglobin Sodium 131 L Potassium Chloride 91.2 L Carbon Dioxide BUN 22 H Creatinine 0.3 L Glucose 123 H POC Glucose 147 H Lactic Acid Calcium 10.9 H Ionized Calcium Phosphorus Magnesium Total Bilirubin AST ALT Alkaline Phosphatase Ammonia Total Creatine Kinase CK-MB (CK-2) CK-MB (CK-2) Rel Index Total Protein Albumin Urine WBC (Auto) Vancomycin Trough Salicylates Acetaminophen Plasma/Serum Alcohol Crossmatch 01/24/20 01/24/20 01/25/20 11:47 16:45 00:18 WBC RBC Hgb Hct MCH RDW Plt Count Lymph % (Auto) [place] % (Auto) [place] # Baso # Seg Neutrophils % Seg Neuts % (Manual) Lymphocytes % (Manual) Monocytes % (Manual) Seg Neutrophils # Seg Neutrophils # Man Lymphocytes # (Manual) Monocytes # (Manual) Eosinophils # (Manual) Basophils # (Manual) PT INR APTT ABG pH ABG pO2 ABG HCO3 ABG O2 Saturation ABG Base Excess ABG Hemoglobin Oxyhemoglobin Sodium Potassium Chloride Carbon Dioxide BUN Creatinine Glucose POC Glucose 114 H 108 H 119 H Lactic Acid Calcium Ionized Calcium Phosphorus Magnesium Total Bilirubin AST ALT Alkaline Phosphatase Ammonia Total Creatine Kinase CK-MB (CK-2) CK-MB (CK-2) Rel Index Total Protein Albumin Urine WBC (Auto) Vancomycin Trough Salicylates Acetaminophen Plasma/Serum Alcohol Crossmatch 01/25/20 01/25/20 01/25/20 07:18 11:58 16:56 WBC RBC Hgb Hct MCH RDW Plt Count Lymph % (Auto) [place] % (Auto) [place] # Baso # Seg Neutrophils % Seg Neuts % (Manual) Lymphocytes % (Manual) Monocytes % (Manual) Seg Neutrophils # Seg Neutrophils # Man Lymphocytes # (Manual) Monocytes # (Manual) Eosinophils # (Manual) Basophils # (Manual) PT INR APTT ABG pH ABG pO2 ABG HCO3 ABG O2 Saturation ABG Base Excess ABG Hemoglobin Oxyhemoglobin Sodium Potassium Chloride Carbon Dioxide BUN Creatinine Glucose POC Glucose 136 H 136 H 147 H Lactic Acid Calcium Ionized Calcium Phosphorus Magnesium Total Bilirubin AST ALT Alkaline Phosphatase Ammonia Total Creatine Kinase CK-MB (CK-2) CK-MB (CK-2) Rel Index Total Protein Albumin Urine WBC (Auto) Vancomycin Trough Salicylates Acetaminophen Plasma/Serum Alcohol Crossmatch 01/26/20 01/26/20 01/26/20 00:29 05:59 05:59 WBC 12.8 H RBC Hgb Hct MCH RDW 16.4 H Plt Count 743 H Lymph % (Auto) [place] % (Auto) [place] # 0.9 H Baso # Seg Neutrophils % 76.2 H Seg Neuts % (Manual) Lymphocytes % (Manual) Monocytes % (Manual) Seg Neutrophils # 9.8 H Seg Neutrophils # Man Lymphocytes # (Manual) Monocytes # (Manual) Eosinophils # (Manual) Basophils # (Manual) PT INR APTT ABG pH ABG pO2 ABG HCO3 ABG O2 Saturation ABG Base Excess ABG Hemoglobin Oxyhemoglobin Sodium 132 L Potassium Chloride 90.9 L Carbon Dioxide BUN 23 H Creatinine 0.4 L Glucose 122 H POC Glucose 107 H Lactic Acid Calcium 11.0 H Ionized Calcium Phosphorus Magnesium Total Bilirubin AST ALT Alkaline Phosphatase Ammonia Total Creatine Kinase CK-MB (CK-2) CK-MB (CK-2) Rel Index Total Protein Albumin Urine WBC (Auto) Vancomycin Trough Salicylates Acetaminophen Plasma/Serum Alcohol Crossmatch 01/26/20 01/26/20 01/26/20 06:27 12:06 16:49 WBC RBC Hgb Hct MCH RDW Plt Count Lymph % (Auto) [place] % (Auto) [place] # Baso # Seg Neutrophils % Seg Neuts % (Manual) Lymphocytes % (Manual) Monocytes % (Manual) Seg Neutrophils # Seg Neutrophils # Man Lymphocytes # (Manual) Monocytes # (Manual) Eosinophils # (Manual) Basophils # (Manual) PT INR APTT ABG pH ABG pO2 ABG HCO3 ABG O2 Saturation ABG Base Excess ABG Hemoglobin Oxyhemoglobin Sodium Potassium Chloride Carbon Dioxide BUN Creatinine Glucose POC Glucose 132 H 132 H 110 H Lactic Acid Calcium Ionized Calcium Phosphorus Magnesium Total Bilirubin AST ALT Alkaline Phosphatase Ammonia Total Creatine Kinase CK-MB (CK-2) CK-MB (CK-2) Rel Index Total Protein Albumin Urine WBC (Auto) Vancomycin Trough Salicylates Acetaminophen Plasma/Serum Alcohol Crossmatch 01/27/20 01/27/20 01/27/20 00:08 11:49 16:24 WBC RBC Hgb Hct MCH RDW Plt Count Lymph % (Auto) [place] % (Auto) [place] # Baso # Seg Neutrophils % Seg Neuts % (Manual) Lymphocytes % (Manual) Monocytes % (Manual) Seg Neutrophils # Seg Neutrophils # Man Lymphocytes # (Manual) Monocytes # (Manual) Eosinophils # (Manual) Basophils # (Manual) PT INR APTT ABG pH ABG pO2 ABG HCO3 ABG O2 Saturation ABG Base Excess ABG Hemoglobin Oxyhemoglobin Sodium Potassium Chloride Carbon Dioxide BUN Creatinine Glucose POC Glucose 107 H 119 H 129 H Lactic Acid Calcium Ionized Calcium Phosphorus Magnesium Total Bilirubin AST ALT Alkaline Phosphatase Ammonia Total Creatine Kinase CK-MB (CK-2) CK-MB (CK-2) Rel Index Total Protein Albumin Urine WBC (Auto) Vancomycin Trough Salicylates Acetaminophen Plasma/Serum Alcohol Crossmatch 01/27/20 01/28/20 01/28/20 18:28 01:00 06:22 WBC RBC Hgb Hct MCH RDW Plt Count Lymph % (Auto) [place] % (Auto) [place] # Baso # Seg Neutrophils % Seg Neuts % (Manual) Lymphocytes % (Manual) Monocytes % (Manual) Seg Neutrophils # Seg Neutrophils # Man Lymphocytes # (Manual) Monocytes # (Manual) Eosinophils # (Manual) Basophils # (Manual) PT INR APTT ABG pH ABG pO2 ABG HCO3 ABG O2 Saturation ABG Base Excess ABG Hemoglobin Oxyhemoglobin Sodium Potassium Chloride Carbon Dioxide BUN Creatinine Glucose POC Glucose 126 H 121 H 114 H Lactic Acid Calcium Ionized Calcium Phosphorus Magnesium Total Bilirubin AST ALT Alkaline Phosphatase Ammonia Total Creatine Kinase CK-MB (CK-2) CK-MB (CK-2) Rel Index Total Protein Albumin Urine WBC (Auto) Vancomycin Trough Salicylates Acetaminophen Plasma/Serum Alcohol Crossmatch 01/28/20 01/28/20 01/29/20 11:47 18:00 00:05 WBC RBC Hgb Hct MCH RDW Plt Count Lymph % (Auto) [place] % (Auto) [place] # Baso # Seg Neutrophils % Seg Neuts % (Manual) Lymphocytes % (Manual) Monocytes % (Manual) Seg Neutrophils # Seg Neutrophils # Man Lymphocytes # (Manual) Monocytes # (Manual) Eosinophils # (Manual) Basophils # (Manual) PT INR APTT ABG pH ABG pO2 ABG HCO3 ABG O2 Saturation ABG Base Excess ABG Hemoglobin Oxyhemoglobin Sodium Potassium Chloride Carbon Dioxide BUN Creatinine Glucose POC Glucose 106 H 117 H 127 H Lactic Acid Calcium Ionized Calcium Phosphorus Magnesium Total Bilirubin AST ALT Alkaline Phosphatase Ammonia Total Creatine Kinase CK-MB (CK-2) CK-MB (CK-2) Rel Index Total Protein Albumin Urine WBC (Auto) Vancomycin Trough Salicylates Acetaminophen Plasma/Serum Alcohol Crossmatch 01/29/20 01/29/20 01/29/20 06:04 11:40 16:38 WBC RBC Hgb Hct MCH RDW Plt Count Lymph % (Auto) [place] % (Auto) [place] # Baso # Seg Neutrophils % Seg Neuts % (Manual) Lymphocytes % (Manual) Monocytes % (Manual) Seg Neutrophils # Seg Neutrophils # Man Lymphocytes # (Manual) Monocytes # (Manual) Eosinophils # (Manual) Basophils # (Manual) PT INR APTT ABG pH ABG pO2 ABG HCO3 ABG O2 Saturation ABG Base Excess ABG Hemoglobin Oxyhemoglobin Sodium Potassium Chloride Carbon Dioxide BUN Creatinine Glucose POC Glucose 147 H 139 H 143 H Lactic Acid Calcium Ionized Calcium Phosphorus Magnesium Total Bilirubin AST ALT Alkaline Phosphatase Ammonia Total Creatine Kinase CK-MB (CK-2) CK-MB (CK-2) Rel Index Total Protein Albumin Urine WBC (Auto) Vancomycin Trough Salicylates Acetaminophen Plasma/Serum Alcohol Crossmatch 01/29/20 01/30/20 01/30/20 23:46 06:43 12:07 WBC RBC Hgb Hct MCH RDW Plt Count Lymph % (Auto) [place] % (Auto) [place] # Baso # Seg Neutrophils % Seg Neuts % (Manual) Lymphocytes % (Manual) Monocytes % (Manual) Seg Neutrophils # Seg Neutrophils # Man Lymphocytes # (Manual) Monocytes # (Manual) Eosinophils # (Manual) Basophils # (Manual) PT INR APTT ABG pH ABG pO2 ABG HCO3 ABG O2 Saturation ABG Base Excess ABG Hemoglobin Oxyhemoglobin Sodium Potassium Chloride Carbon Dioxide BUN Creatinine Glucose POC Glucose 122 H 122 H 134 H Lactic Acid Calcium Ionized Calcium Phosphorus Magnesium Total Bilirubin AST ALT Alkaline Phosphatase Ammonia Total Creatine Kinase CK-MB (CK-2) CK-MB (CK-2) Rel Index Total Protein Albumin Urine WBC (Auto) Vancomycin Trough Salicylates Acetaminophen Plasma/Serum Alcohol Crossmatch 01/30/20 01/31/20 01/31/20 17:59 00:52 05:54 WBC RBC Hgb Hct MCH RDW Plt Count Lymph % (Auto) [place] % (Auto) [place] # Baso # Seg Neutrophils % Seg Neuts % (Manual) Lymphocytes % (Manual) Monocytes % (Manual) Seg Neutrophils # Seg Neutrophils # Man Lymphocytes # (Manual) Monocytes # (Manual) Eosinophils # (Manual) Basophils # (Manual) PT INR APTT ABG pH ABG pO2 ABG HCO3 ABG O2 Saturation ABG Base Excess ABG Hemoglobin Oxyhemoglobin Sodium Potassium Chloride Carbon Dioxide BUN Creatinine Glucose POC Glucose 116 H 127 H 127 H Lactic Acid Calcium Ionized Calcium Phosphorus Magnesium Total Bilirubin AST ALT Alkaline Phosphatase Ammonia Total Creatine Kinase CK-MB (CK-2) CK-MB (CK-2) Rel Index Total Protein Albumin Urine WBC (Auto) Vancomycin Trough Salicylates Acetaminophen Plasma/Serum Alcohol Crossmatch 01/31/20 02/01/20 02/01/20 12:20 00:48 12:21 WBC RBC Hgb Hct MCH RDW Plt Count Lymph % (Auto) [place] % (Auto) [place] # Baso # Seg Neutrophils % Seg Neuts % (Manual) Lymphocytes % (Manual) Monocytes % (Manual) Seg Neutrophils # Seg Neutrophils # Man Lymphocytes # (Manual) Monocytes # (Manual) Eosinophils # (Manual) Basophils # (Manual) PT INR APTT ABG pH ABG pO2 ABG HCO3 ABG O2 Saturation ABG Base Excess ABG Hemoglobin Oxyhemoglobin Sodium Potassium Chloride Carbon Dioxide BUN Creatinine Glucose POC Glucose 126 H 154 H 123 H Lactic Acid Calcium Ionized Calcium Phosphorus Magnesium Total Bilirubin AST ALT Alkaline Phosphatase Ammonia Total Creatine Kinase CK-MB (CK-2) CK-MB (CK-2) Rel Index Total Protein Albumin Urine WBC (Auto) Vancomycin Trough Salicylates Acetaminophen Plasma/Serum Alcohol Crossmatch 02/01/20 02/02/20 02/02/20 23:58 06:08 11:50 WBC RBC Hgb Hct MCH RDW Plt Count Lymph % (Auto) [place] % (Auto) [place] # Baso # Seg Neutrophils % Seg Neuts % (Manual) Lymphocytes % (Manual) Monocytes % (Manual) Seg Neutrophils # Seg Neutrophils # Man Lymphocytes # (Manual) Monocytes # (Manual) Eosinophils # (Manual) Basophils # (Manual) PT INR APTT ABG pH ABG pO2 ABG HCO3 ABG O2 Saturation ABG Base Excess ABG Hemoglobin Oxyhemoglobin Sodium Potassium Chloride Carbon Dioxide BUN Creatinine Glucose POC Glucose 125 H 144 H 131 H Lactic Acid Calcium Ionized Calcium Phosphorus Magnesium Total Bilirubin AST ALT Alkaline Phosphatase Ammonia Total Creatine Kinase CK-MB (CK-2) CK-MB (CK-2) Rel Index Total Protein Albumin Urine WBC (Auto) Vancomycin Trough Salicylates Acetaminophen Plasma/Serum Alcohol Crossmatch 02/02/20 02/03/20 02/03/20 17:53 00:14 05:47 WBC RBC Hgb Hct MCH RDW Plt Count Lymph % (Auto) [place] % (Auto) [place] # Baso # Seg Neutrophils % Seg Neuts % (Manual) Lymphocytes % (Manual) Monocytes % (Manual) Seg Neutrophils # Seg Neutrophils # Man Lymphocytes # (Manual) Monocytes # (Manual) Eosinophils # (Manual) Basophils # (Manual) PT INR APTT ABG pH ABG pO2 ABG HCO3 ABG O2 Saturation ABG Base Excess ABG Hemoglobin Oxyhemoglobin Sodium Potassium Chloride Carbon Dioxide BUN Creatinine Glucose POC Glucose 108 H 122 H 118 H Lactic Acid Calcium Ionized Calcium Phosphorus Magnesium Total Bilirubin AST ALT Alkaline Phosphatase Ammonia Total Creatine Kinase CK-MB (CK-2) CK-MB (CK-2) Rel Index Total Protein Albumin Urine WBC (Auto) Vancomycin Trough Salicylates Acetaminophen Plasma/Serum Alcohol Crossmatch 02/03/20 02/03/20 02/03/20 05:59 05:59 11:49 WBC RBC 3.48 L Hgb Hct 29.9 L MCH RDW 16.2 H Plt Count 707 H Lymph % (Auto) [place] % (Auto) 9.3 H [place] # 0.9 H Baso # Seg Neutrophils % Seg Neuts % (Manual) Lymphocytes % (Manual) Monocytes % (Manual) Seg Neutrophils # Seg Neutrophils # Man Lymphocytes # (Manual) Monocytes # (Manual) Eosinophils # (Manual) Basophils # (Manual) PT INR APTT ABG pH ABG pO2 ABG HCO3 ABG O2 Saturation ABG Base Excess ABG Hemoglobin Oxyhemoglobin Sodium 136 L Potassium Chloride 93.4 L Carbon Dioxide BUN 20 H Creatinine 0.5 L Glucose 101 H POC Glucose 133 H Lactic Acid Calcium 10.8 H Ionized Calcium Phosphorus Magnesium Total Bilirubin AST ALT Alkaline Phosphatase Ammonia Total Creatine Kinase CK-MB (CK-2) CK-MB (CK-2) Rel Index Total Protein Albumin Urine WBC (Auto) Vancomycin Trough Salicylates Acetaminophen Plasma/Serum Alcohol Crossmatch 02/03/20 02/04/20 02/04/20 23:19 05:37 23:56 WBC RBC Hgb Hct MCH RDW Plt Count Lymph % (Auto) [place] % (Auto) [place] # Baso # Seg Neutrophils % Seg Neuts % (Manual) Lymphocytes % (Manual) Monocytes % (Manual) Seg Neutrophils # Seg Neutrophils # Man Lymphocytes # (Manual) Monocytes # (Manual) Eosinophils # (Manual) Basophils # (Manual) PT INR APTT ABG pH ABG pO2 ABG HCO3 ABG O2 Saturation ABG Base Excess ABG Hemoglobin Oxyhemoglobin Sodium Potassium Chloride Carbon Dioxide BUN Creatinine Glucose POC Glucose 135 H 108 H 158 H Lactic Acid Calcium Ionized Calcium Phosphorus Magnesium Total Bilirubin AST ALT Alkaline Phosphatase Ammonia Total Creatine Kinase CK-MB (CK-2) CK-MB (CK-2) Rel Index Total Protein Albumin Urine WBC (Auto) Vancomycin Trough Salicylates Acetaminophen Plasma/Serum Alcohol Crossmatch 02/05/20 02/05/20 02/06/20 05:33 23:24 05:50 WBC RBC Hgb Hct MCH RDW Plt Count Lymph % (Auto) [place] % (Auto) [place] # Baso # Seg Neutrophils % Seg Neuts % (Manual) Lymphocytes % (Manual) Monocytes % (Manual) Seg Neutrophils # Seg Neutrophils # Man Lymphocytes # (Manual) Monocytes # (Manual) Eosinophils # (Manual) Basophils # (Manual) PT INR APTT ABG pH ABG pO2 ABG HCO3 ABG O2 Saturation ABG Base Excess ABG Hemoglobin Oxyhemoglobin Sodium Potassium Chloride Carbon Dioxide BUN Creatinine Glucose POC Glucose 152 H 158 H 110 H Lactic Acid Calcium Ionized Calcium Phosphorus Magnesium Total Bilirubin AST ALT Alkaline Phosphatase Ammonia Total Creatine Kinase CK-MB (CK-2) CK-MB (CK-2) Rel Index Total Protein Albumin Urine WBC (Auto) Vancomycin Trough Salicylates Acetaminophen Plasma/Serum Alcohol Crossmatch 02/06/20 02/07/20 02/07/20 16:03 00:13 05:27 WBC RBC Hgb Hct MCH RDW Plt Count Lymph % (Auto) [place] % (Auto) [place] # Baso # Seg Neutrophils % Seg Neuts % (Manual) Lymphocytes % (Manual) Monocytes % (Manual) Seg Neutrophils # Seg Neutrophils # Man Lymphocytes # (Manual) Monocytes # (Manual) Eosinophils # (Manual) Basophils # (Manual) PT INR APTT ABG pH ABG pO2 ABG HCO3 ABG O2 Saturation ABG Base Excess ABG Hemoglobin Oxyhemoglobin Sodium Potassium Chloride Carbon Dioxide BUN Creatinine Glucose POC Glucose 130 H 115 H 115 H Lactic Acid Calcium Ionized Calcium Phosphorus Magnesium Total Bilirubin AST ALT Alkaline Phosphatase Ammonia Total Creatine Kinase CK-MB (CK-2) CK-MB (CK-2) Rel Index Total Protein Albumin Urine WBC (Auto) Vancomycin Trough Salicylates Acetaminophen Plasma/Serum Alcohol Crossmatch 02/07/20 02/07/20 02/08/20 11:42 17:23 00:37 WBC RBC Hgb Hct MCH RDW Plt Count Lymph % (Auto) [place] % (Auto) [place] # Baso # Seg Neutrophils % Seg Neuts % (Manual) Lymphocytes % (Manual) Monocytes % (Manual) Seg Neutrophils # Seg Neutrophils # Man Lymphocytes # (Manual) Monocytes # (Manual) Eosinophils # (Manual) Basophils # (Manual) PT INR APTT ABG pH ABG pO2 ABG HCO3 ABG O2 Saturation ABG Base Excess ABG Hemoglobin Oxyhemoglobin Sodium Potassium Chloride Carbon Dioxide BUN Creatinine Glucose POC Glucose 113 H 114 H 136 H Lactic Acid Calcium Ionized Calcium Phosphorus Magnesium Total Bilirubin AST ALT Alkaline Phosphatase Ammonia Total Creatine Kinase CK-MB (CK-2) CK-MB (CK-2) Rel Index Total Protein Albumin Urine WBC (Auto) Vancomycin Trough Salicylates Acetaminophen Plasma/Serum Alcohol Crossmatch 02/08/20 02/08/20 02/08/20 08:52 11:42 17:02 WBC RBC Hgb Hct MCH RDW Plt Count Lymph % (Auto) [place] % (Auto) [place] # Baso # Seg Neutrophils % Seg Neuts % (Manual) Lymphocytes % (Manual) Monocytes % (Manual) Seg Neutrophils # Seg Neutrophils # Man Lymphocytes # (Manual) Monocytes # (Manual) Eosinophils # (Manual) Basophils # (Manual) PT INR APTT ABG pH ABG pO2 ABG HCO3 ABG O2 Saturation ABG Base Excess ABG Hemoglobin Oxyhemoglobin Sodium 136 L Potassium Chloride 95.7 L Carbon Dioxide BUN 21 H Creatinine 0.4 L Glucose POC Glucose 128 H 145 H Lactic Acid Calcium 10.4 H Ionized Calcium Phosphorus Magnesium Total Bilirubin AST ALT Alkaline Phosphatase Ammonia Total Creatine Kinase CK-MB (CK-2) CK-MB (CK-2) Rel Index Total Protein Albumin Urine WBC (Auto) Vancomycin Trough Salicylates Acetaminophen Plasma/Serum Alcohol Crossmatch 02/09/20 02/09/20 02/09/20 01:05 11:52 16:19 WBC RBC Hgb Hct MCH RDW Plt Count Lymph % (Auto) [place] % (Auto) [place] # Baso # Seg Neutrophils % Seg Neuts % (Manual) Lymphocytes % (Manual) Monocytes % (Manual) Seg Neutrophils # Seg Neutrophils # Man Lymphocytes # (Manual) Monocytes # (Manual) Eosinophils # (Manual) Basophils # (Manual) PT INR APTT ABG pH ABG pO2 ABG HCO3 ABG O2 Saturation ABG Base Excess ABG Hemoglobin Oxyhemoglobin Sodium Potassium Chloride Carbon Dioxide BUN Creatinine Glucose POC Glucose 117 H 141 H 113 H Lactic Acid Calcium Ionized Calcium Phosphorus Magnesium Total Bilirubin AST ALT Alkaline Phosphatase Ammonia Total Creatine Kinase CK-MB (CK-2) CK-MB (CK-2) Rel Index Total Protein Albumin Urine WBC (Auto) Vancomycin Trough Salicylates Acetaminophen Plasma/Serum Alcohol Crossmatch 02/10/20 02/10/20 02/10/20 05:25 12:50 17:08 WBC RBC Hgb Hct MCH RDW Plt Count Lymph % (Auto) [place] % (Auto) [place] # Baso # Seg Neutrophils % Seg Neuts % (Manual) Lymphocytes % (Manual) Monocytes % (Manual) Seg Neutrophils # Seg Neutrophils # Man Lymphocytes # (Manual) Monocytes # (Manual) Eosinophils # (Manual) Basophils # (Manual) PT INR APTT ABG pH ABG pO2 ABG HCO3 ABG O2 Saturation ABG Base Excess ABG Hemoglobin Oxyhemoglobin Sodium Potassium Chloride Carbon Dioxide BUN Creatinine Glucose POC Glucose 136 H 127 H 111 H Lactic Acid Calcium Ionized Calcium Phosphorus Magnesium Total Bilirubin AST ALT Alkaline Phosphatase Ammonia Total Creatine Kinase CK-MB (CK-2) CK-MB (CK-2) Rel Index Total Protein Albumin Urine WBC (Auto) Vancomycin Trough Salicylates Acetaminophen Plasma/Serum Alcohol Crossmatch 02/10/20 02/11/20 02/11/20 23:55 06:11 12:07 WBC RBC Hgb Hct MCH RDW Plt Count Lymph % (Auto) [place] % (Auto) [place] # Baso # Seg Neutrophils % Seg Neuts % (Manual) Lymphocytes % (Manual) Monocytes % (Manual) Seg Neutrophils # Seg Neutrophils # Man Lymphocytes # (Manual) Monocytes # (Manual) Eosinophils # (Manual) Basophils # (Manual) PT INR APTT ABG pH ABG pO2 ABG HCO3 ABG O2 Saturation ABG Base Excess ABG Hemoglobin Oxyhemoglobin Sodium Potassium Chloride Carbon Dioxide BUN Creatinine Glucose POC Glucose 129 H 128 H 141 H Lactic Acid Calcium Ionized Calcium Phosphorus Magnesium Total Bilirubin AST ALT Alkaline Phosphatase Ammonia Total Creatine Kinase CK-MB (CK-2) CK-MB (CK-2) Rel Index Total Protein Albumin Urine WBC (Auto) Vancomycin Trough Salicylates Acetaminophen Plasma/Serum Alcohol Crossmatch 02/11/20 02/12/20 02/13/20 18:22 02:39 06:45 WBC RBC Hgb Hct MCH RDW Plt Count Lymph % (Auto) [place] % (Auto) [place] # Baso # Seg Neutrophils % Seg Neuts % (Manual) Lymphocytes % (Manual) Monocytes % (Manual) Seg Neutrophils # Seg Neutrophils # Man Lymphocytes # (Manual) Monocytes # (Manual) Eosinophils # (Manual) Basophils # (Manual) PT INR APTT ABG pH ABG pO2 ABG HCO3 ABG O2 Saturation ABG Base Excess ABG Hemoglobin Oxyhemoglobin Sodium Potassium Chloride Carbon Dioxide BUN Creatinine Glucose POC Glucose 118 H 107 H 124 H Lactic Acid Calcium Ionized Calcium Phosphorus Magnesium Total Bilirubin AST ALT Alkaline Phosphatase Ammonia Total Creatine Kinase CK-MB (CK-2) CK-MB (CK-2) Rel Index Total Protein Albumin Urine WBC (Auto) Vancomycin Trough Salicylates Acetaminophen Plasma/Serum Alcohol Crossmatch 02/13/20 02/13/20 02/14/20 12:26 18:19 00:21 WBC RBC Hgb Hct MCH RDW Plt Count Lymph % (Auto) [place] % (Auto) [place] # Baso # Seg Neutrophils % Seg Neuts % (Manual) Lymphocytes % (Manual) Monocytes % (Manual) Seg Neutrophils # Seg Neutrophils # Man Lymphocytes # (Manual) Monocytes # (Manual) Eosinophils # (Manual) Basophils # (Manual) PT INR APTT ABG pH ABG pO2 ABG HCO3 ABG O2 Saturation ABG Base Excess ABG Hemoglobin Oxyhemoglobin Sodium Potassium Chloride Carbon Dioxide BUN Creatinine Glucose POC Glucose 124 H 118 H 130 H Lactic Acid Calcium Ionized Calcium Phosphorus Magnesium Total Bilirubin AST ALT Alkaline Phosphatase Ammonia Total Creatine Kinase CK-MB (CK-2) CK-MB (CK-2) Rel Index Total Protein Albumin Urine WBC (Auto) Vancomycin Trough Salicylates Acetaminophen Plasma/Serum Alcohol Crossmatch 02/14/20 02/14/20 02/16/20 11:19 16:16 00:58 WBC RBC Hgb Hct MCH RDW Plt Count Lymph % (Auto) [place] % (Auto) [place] # Baso # Seg Neutrophils % Seg Neuts % (Manual) Lymphocytes % (Manual) Monocytes % (Manual) Seg Neutrophils # Seg Neutrophils # Man Lymphocytes # (Manual) Monocytes # (Manual) Eosinophils # (Manual) Basophils # (Manual) PT INR APTT ABG pH ABG pO2 ABG HCO3 ABG O2 Saturation ABG Base Excess ABG Hemoglobin Oxyhemoglobin Sodium Potassium Chloride Carbon Dioxide BUN Creatinine Glucose POC Glucose 135 H 119 H 121 H Lactic Acid Calcium Ionized Calcium Phosphorus Magnesium Total Bilirubin AST ALT Alkaline Phosphatase Ammonia Total Creatine Kinase CK-MB (CK-2) CK-MB (CK-2) Rel Index Total Protein Albumin Urine WBC (Auto) Vancomycin Trough Salicylates Acetaminophen Plasma/Serum Alcohol Crossmatch 02/16/20 02/16/20 02/16/20 12:12 18:22 23:51 WBC RBC Hgb Hct MCH RDW Plt Count Lymph % (Auto) [place] % (Auto) [place] # Baso # Seg Neutrophils % Seg Neuts % (Manual) Lymphocytes % (Manual) Monocytes % (Manual) Seg Neutrophils # Seg Neutrophils # Man Lymphocytes # (Manual) Monocytes # (Manual) Eosinophils # (Manual) Basophils # (Manual) PT INR APTT ABG pH ABG pO2 ABG HCO3 ABG O2 Saturation ABG Base Excess ABG Hemoglobin Oxyhemoglobin Sodium Potassium Chloride Carbon Dioxide BUN Creatinine Glucose POC Glucose 107 H 106 H 128 H Lactic Acid Calcium Ionized Calcium Phosphorus Magnesium Total Bilirubin AST ALT Alkaline Phosphatase Ammonia Total Creatine Kinase CK-MB (CK-2) CK-MB (CK-2) Rel Index Total Protein Albumin Urine WBC (Auto) Vancomycin Trough Salicylates Acetaminophen Plasma/Serum Alcohol Crossmatch 02/17/20 02/17/20 02/17/20 05:50 07:57 07:57 WBC 12.6 H RBC 3.52 L Hgb Hct MCH RDW 15.3 H Plt Count 643 H Lymph % (Auto) [place] % (Auto) 8.0 H [place] # 1.0 H Baso # Seg Neutrophils % Seg Neuts % (Manual) Lymphocytes % (Manual) Monocytes % (Manual) Seg Neutrophils # 8.5 H Seg Neutrophils # Man Lymphocytes # (Manual) Monocytes # (Manual) Eosinophils # (Manual) Basophils # (Manual) PT INR APTT ABG pH ABG pO2 ABG HCO3 ABG O2 Saturation ABG Base Excess ABG Hemoglobin Oxyhemoglobin Sodium Potassium Chloride 96.9 L Carbon Dioxide BUN 21 H Creatinine 0.4 L Glucose 113 H POC Glucose 116 H Lactic Acid Calcium 10.5 H Ionized Calcium Phosphorus Magnesium Total Bilirubin AST ALT Alkaline Phosphatase Ammonia Total Creatine Kinase CK-MB (CK-2) CK-MB (CK-2) Rel Index Total Protein Albumin Urine WBC (Auto) Vancomycin Trough Salicylates Acetaminophen Plasma/Serum Alcohol Crossmatch 02/17/20 02/17/20 02/18/20 12:05 18:16 00:13 WBC RBC Hgb Hct MCH RDW Plt Count Lymph % (Auto) [place] % (Auto) [place] # Baso # Seg Neutrophils % Seg Neuts % (Manual) Lymphocytes % (Manual) Monocytes % (Manual) Seg Neutrophils # Seg Neutrophils # Man Lymphocytes # (Manual) Monocytes # (Manual) Eosinophils # (Manual) Basophils # (Manual) PT INR APTT ABG pH ABG pO2 ABG HCO3 ABG O2 Saturation ABG Base Excess ABG Hemoglobin Oxyhemoglobin Sodium Potassium Chloride Carbon Dioxide BUN Creatinine Glucose POC Glucose 139 H 127 H 144 H Lactic Acid Calcium Ionized Calcium Phosphorus Magnesium Total Bilirubin AST ALT Alkaline Phosphatase Ammonia Total Creatine Kinase CK-MB (CK-2) CK-MB (CK-2) Rel Index Total Protein Albumin Urine WBC (Auto) Vancomycin Trough Salicylates Acetaminophen Plasma/Serum Alcohol Crossmatch 02/18/20 02/18/20 02/19/20 17:41 23:28 05:17 WBC RBC Hgb Hct MCH RDW Plt Count Lymph % (Auto) [place] % (Auto) [place] # Baso # Seg Neutrophils % Seg Neuts % (Manual) Lymphocytes % (Manual) Monocytes % (Manual) Seg Neutrophils # Seg Neutrophils # Man Lymphocytes # (Manual) Monocytes # (Manual) Eosinophils # (Manual) Basophils # (Manual) PT INR APTT ABG pH ABG pO2 ABG HCO3 ABG O2 Saturation ABG Base Excess ABG Hemoglobin Oxyhemoglobin Sodium Potassium Chloride Carbon Dioxide BUN Creatinine Glucose POC Glucose 118 H 166 H 116 H Lactic Acid Calcium Ionized Calcium Phosphorus Magnesium Total Bilirubin AST ALT Alkaline Phosphatase Ammonia Total Creatine Kinase CK-MB (CK-2) CK-MB (CK-2) Rel Index Total Protein Albumin Urine WBC (Auto) Vancomycin Trough Salicylates Acetaminophen Plasma/Serum Alcohol Crossmatch 02/19/20 02/19/20 02/20/20 12:33 17:02 00:12 WBC RBC Hgb Hct MCH RDW Plt Count Lymph % (Auto) [place] % (Auto) [place] # Baso # Seg Neutrophils % Seg Neuts % (Manual) Lymphocytes % (Manual) Monocytes % (Manual) Seg Neutrophils # Seg Neutrophils # Man Lymphocytes # (Manual) Monocytes # (Manual) Eosinophils # (Manual) Basophils # (Manual) PT INR APTT ABG pH ABG pO2 ABG HCO3 ABG O2 Saturation ABG Base Excess ABG Hemoglobin Oxyhemoglobin Sodium Potassium Chloride Carbon Dioxide BUN Creatinine Glucose POC Glucose 115 H 108 H 153 H Lactic Acid Calcium Ionized Calcium Phosphorus Magnesium Total Bilirubin AST ALT Alkaline Phosphatase Ammonia Total Creatine Kinase CK-MB (CK-2) CK-MB (CK-2) Rel Index Total Protein Albumin Urine WBC (Auto) Vancomycin Trough Salicylates Acetaminophen Plasma/Serum Alcohol Crossmatch 02/20/20 02/20/20 02/21/20 12:00 23:13 05:07 WBC RBC Hgb Hct MCH RDW Plt Count Lymph % (Auto) [place] % (Auto) [place] # Baso # Seg Neutrophils % Seg Neuts % (Manual) Lymphocytes % (Manual) Monocytes % (Manual) Seg Neutrophils # Seg Neutrophils # Man Lymphocytes # (Manual) Monocytes # (Manual) Eosinophils # (Manual) Basophils # (Manual) PT INR APTT ABG pH ABG pO2 ABG HCO3 ABG O2 Saturation ABG Base Excess ABG Hemoglobin Oxyhemoglobin Sodium Potassium Chloride Carbon Dioxide BUN Creatinine Glucose POC Glucose 171 H 129 H 116 H Lactic Acid Calcium Ionized Calcium Phosphorus Magnesium Total Bilirubin AST ALT Alkaline Phosphatase Ammonia Total Creatine Kinase CK-MB (CK-2) CK-MB (CK-2) Rel Index Total Protein Albumin Urine WBC (Auto) Vancomycin Trough Salicylates Acetaminophen Plasma/Serum Alcohol Crossmatch 02/21/20 02/22/20 02/22/20 12:15 00:42 06:30 WBC RBC Hgb Hct MCH RDW Plt Count Lymph % (Auto) [place] % (Auto) [place] # Baso # Seg Neutrophils % Seg Neuts % (Manual) Lymphocytes % (Manual) Monocytes % (Manual) Seg Neutrophils # Seg Neutrophils # Man Lymphocytes # (Manual) Monocytes # (Manual) Eosinophils # (Manual) Basophils # (Manual) PT INR APTT ABG pH ABG pO2 ABG HCO3 ABG O2 Saturation ABG Base Excess ABG Hemoglobin Oxyhemoglobin Sodium Potassium Chloride Carbon Dioxide BUN Creatinine Glucose POC Glucose 124 H 142 H 117 H Lactic Acid Calcium Ionized Calcium Phosphorus Magnesium Total Bilirubin AST ALT Alkaline Phosphatase Ammonia Total Creatine Kinase CK-MB (CK-2) CK-MB (CK-2) Rel Index Total Protein Albumin Urine WBC (Auto) Vancomycin Trough Salicylates Acetaminophen Plasma/Serum Alcohol Crossmatch 02/22/20 02/22/20 02/23/20 12:20 17:55 12:46 WBC RBC Hgb Hct MCH RDW Plt Count Lymph % (Auto) [place] % (Auto) [place] # Baso # Seg Neutrophils % Seg Neuts % (Manual) Lymphocytes % (Manual) Monocytes % (Manual) Seg Neutrophils # Seg Neutrophils # Man Lymphocytes # (Manual) Monocytes # (Manual) Eosinophils # (Manual) Basophils # (Manual) PT INR APTT ABG pH ABG pO2 ABG HCO3 ABG O2 Saturation ABG Base Excess ABG Hemoglobin Oxyhemoglobin Sodium Potassium Chloride Carbon Dioxide BUN Creatinine Glucose POC Glucose 121 H 157 H 112 H Lactic Acid Calcium Ionized Calcium Phosphorus Magnesium Total Bilirubin AST ALT Alkaline Phosphatase Ammonia Total Creatine Kinase CK-MB (CK-2) CK-MB (CK-2) Rel Index Total Protein Albumin Urine WBC (Auto) Vancomycin Trough Salicylates Acetaminophen Plasma/Serum Alcohol Crossmatch 02/23/20 02/24/20 02/24/20 16:47 00:38 07:00 WBC RBC Hgb Hct MCH RDW Plt Count Lymph % (Auto) [place] % (Auto) [place] # Baso # Seg Neutrophils % Seg Neuts % (Manual) Lymphocytes % (Manual) Monocytes % (Manual) Seg Neutrophils # Seg Neutrophils # Man Lymphocytes # (Manual) Monocytes # (Manual) Eosinophils # (Manual) Basophils # (Manual) PT INR APTT ABG pH ABG pO2 ABG HCO3 ABG O2 Saturation ABG Base Excess ABG Hemoglobin Oxyhemoglobin Sodium Potassium Chloride Carbon Dioxide BUN Creatinine Glucose POC Glucose 142 H 138 H 118 H Lactic Acid Calcium Ionized Calcium Phosphorus Magnesium Total Bilirubin AST ALT Alkaline Phosphatase Ammonia Total Creatine Kinase CK-MB (CK-2) CK-MB (CK-2) Rel Index Total Protein Albumin Urine WBC (Auto) Vancomycin Trough Salicylates Acetaminophen Plasma/Serum Alcohol Crossmatch 02/24/20 02/24/20 02/25/20 11:41 18:33 18:24 WBC RBC Hgb Hct MCH RDW Plt Count Lymph % (Auto) [place] % (Auto) [place] # Baso # Seg Neutrophils % Seg Neuts % (Manual) Lymphocytes % (Manual) Monocytes % (Manual) Seg Neutrophils # Seg Neutrophils # Man Lymphocytes # (Manual) Monocytes # (Manual) Eosinophils # (Manual) Basophils # (Manual) PT INR APTT ABG pH ABG pO2 ABG HCO3 ABG O2 Saturation ABG Base Excess ABG Hemoglobin Oxyhemoglobin Sodium Potassium Chloride Carbon Dioxide BUN Creatinine Glucose POC Glucose 152 H 126 H 120 H Lactic Acid Calcium Ionized Calcium Phosphorus Magnesium Total Bilirubin AST ALT Alkaline Phosphatase Ammonia Total Creatine Kinase CK-MB (CK-2) CK-MB (CK-2) Rel Index Total Protein Albumin Urine WBC (Auto) Vancomycin Trough Salicylates Acetaminophen Plasma/Serum Alcohol Crossmatch 02/25/20 02/26/20 02/26/20 23:40 05:46 11:32 WBC RBC Hgb Hct MCH RDW Plt Count Lymph % (Auto) [place] % (Auto) [place] # Baso # Seg Neutrophils % Seg Neuts % (Manual) Lymphocytes % (Manual) Monocytes % (Manual) Seg Neutrophils # Seg Neutrophils # Man Lymphocytes # (Manual) Monocytes # (Manual) Eosinophils # (Manual) Basophils # (Manual) PT INR APTT ABG pH ABG pO2 ABG HCO3 ABG O2 Saturation ABG Base Excess ABG Hemoglobin Oxyhemoglobin Sodium Potassium Chloride Carbon Dioxide BUN Creatinine Glucose POC Glucose 114 H 113 H 106 H Lactic Acid Calcium Ionized Calcium Phosphorus Magnesium Total Bilirubin AST ALT Alkaline Phosphatase Ammonia Total Creatine Kinase CK-MB (CK-2) CK-MB (CK-2) Rel Index Total Protein Albumin Urine WBC (Auto) Vancomycin Trough Salicylates Acetaminophen Plasma/Serum Alcohol Crossmatch 02/26/20 02/27/20 02/27/20 16:14 11:53 17:54 WBC RBC Hgb Hct MCH RDW Plt Count Lymph % (Auto) [place] % (Auto) [place] # Baso # Seg Neutrophils % Seg Neuts % (Manual) Lymphocytes % (Manual) Monocytes % (Manual) Seg Neutrophils # Seg Neutrophils # Man Lymphocytes # (Manual) Monocytes # (Manual) Eosinophils # (Manual) Basophils # (Manual) PT INR APTT ABG pH ABG pO2 ABG HCO3 ABG O2 Saturation ABG Base Excess ABG Hemoglobin Oxyhemoglobin Sodium Potassium Chloride Carbon Dioxide BUN Creatinine Glucose POC Glucose 123 H 134 H 119 H Lactic Acid Calcium Ionized Calcium Phosphorus Magnesium Total Bilirubin AST ALT Alkaline Phosphatase Ammonia Total Creatine Kinase CK-MB (CK-2) CK-MB (CK-2) Rel Index Total Protein Albumin Urine WBC (Auto) Vancomycin Trough Salicylates Acetaminophen Plasma/Serum Alcohol Crossmatch 02/27/20 02/28/20 02/28/20 23:51 03:40 03:40 WBC RBC 3.58 L Hgb Hct MCH RDW Plt Count 575 H Lymph % (Auto) [place] % (Auto) 9.4 H [place] # 1.0 H Baso # Seg Neutrophils % Seg Neuts % (Manual) Lymphocytes % (Manual) Monocytes % (Manual) Seg Neutrophils # Seg Neutrophils # Man Lymphocytes # (Manual) Monocytes # (Manual) Eosinophils # (Manual) Basophils # (Manual) PT INR APTT ABG pH ABG pO2 ABG HCO3 ABG O2 Saturation ABG Base Excess ABG Hemoglobin Oxyhemoglobin Sodium Potassium Chloride Carbon Dioxide BUN 23 H Creatinine 0.5 L Glucose 114 H POC Glucose 138 H Lactic Acid Calcium Ionized Calcium Phosphorus Magnesium Total Bilirubin AST ALT Alkaline Phosphatase Ammonia Total Creatine Kinase CK-MB (CK-2) CK-MB (CK-2) Rel Index Total Protein Albumin Urine WBC (Auto) Vancomycin Trough Salicylates Acetaminophen Plasma/Serum Alcohol Crossmatch 02/28/20 02/28/20 02/29/20 12:37 18:38 05:50 WBC RBC Hgb Hct MCH RDW Plt Count Lymph % (Auto) [place] % (Auto) [place] # Baso # Seg Neutrophils % Seg Neuts % (Manual) Lymphocytes % (Manual) Monocytes % (Manual) Seg Neutrophils # Seg Neutrophils # Man Lymphocytes # (Manual) Monocytes # (Manual) Eosinophils # (Manual) Basophils # (Manual) PT INR APTT ABG pH ABG pO2 ABG HCO3 ABG O2 Saturation ABG Base Excess ABG Hemoglobin Oxyhemoglobin Sodium Potassium Chloride Carbon Dioxide BUN Creatinine Glucose POC Glucose 115 H 120 H 114 H Lactic Acid Calcium Ionized Calcium Phosphorus Magnesium Total Bilirubin AST ALT Alkaline Phosphatase Ammonia Total Creatine Kinase CK-MB (CK-2) CK-MB (CK-2) Rel Index Total Protein Albumin Urine WBC (Auto) Vancomycin Trough Salicylates Acetaminophen Plasma/Serum Alcohol Crossmatch 02/29/20 02/29/20 03/01/20 18:53 23:10 06:53 WBC RBC Hgb Hct MCH RDW Plt Count Lymph % (Auto) [place] % (Auto) [place] # Baso # Seg Neutrophils % Seg Neuts % (Manual) Lymphocytes % (Manual) Monocytes % (Manual) Seg Neutrophils # Seg Neutrophils # Man Lymphocytes # (Manual) Monocytes # (Manual) Eosinophils # (Manual) Basophils # (Manual) PT INR APTT ABG pH ABG pO2 ABG HCO3 ABG O2 Saturation ABG Base Excess ABG Hemoglobin Oxyhemoglobin Sodium Potassium Chloride Carbon Dioxide BUN Creatinine Glucose POC Glucose 112 H 147 H 131 H Lactic Acid Calcium Ionized Calcium Phosphorus Magnesium Total Bilirubin AST ALT Alkaline Phosphatase Ammonia Total Creatine Kinase CK-MB (CK-2) CK-MB (CK-2) Rel Index Total Protein Albumin Urine WBC (Auto) Vancomycin Trough Salicylates Acetaminophen Plasma/Serum Alcohol Crossmatch 03/01/20 03/01/20 03/02/20 17:31 18:35 00:10 WBC RBC Hgb Hct MCH RDW Plt Count Lymph % (Auto) [place] % (Auto) [place] # Baso # Seg Neutrophils % Seg Neuts % (Manual) Lymphocytes % (Manual) Monocytes % (Manual) Seg Neutrophils # Seg Neutrophils # Man Lymphocytes # (Manual) Monocytes # (Manual) Eosinophils # (Manual) Basophils # (Manual) PT INR APTT ABG pH ABG pO2 ABG HCO3 ABG O2 Saturation ABG Base Excess ABG Hemoglobin Oxyhemoglobin Sodium Potassium Chloride Carbon Dioxide BUN Creatinine Glucose POC Glucose 61 L 129 H 117 H Lactic Acid Calcium Ionized Calcium Phosphorus Magnesium Total Bilirubin AST ALT Alkaline Phosphatase Ammonia Total Creatine Kinase CK-MB (CK-2) CK-MB (CK-2) Rel Index Total Protein Albumin Urine WBC (Auto) Vancomycin Trough Salicylates Acetaminophen Plasma/Serum Alcohol Crossmatch 03/02/20 03/02/20 03/02/20 06:56 12:02 18:42 WBC RBC Hgb Hct MCH RDW Plt Count Lymph % (Auto) [place] % (Auto) [place] # Baso # Seg Neutrophils % Seg Neuts % (Manual) Lymphocytes % (Manual) Monocytes % (Manual) Seg Neutrophils # Seg Neutrophils # Man Lymphocytes # (Manual) Monocytes # (Manual) Eosinophils # (Manual) Basophils # (Manual) PT INR APTT ABG pH ABG pO2 ABG HCO3 ABG O2 Saturation ABG Base Excess ABG Hemoglobin Oxyhemoglobin Sodium Potassium Chloride Carbon Dioxide BUN Creatinine Glucose POC Glucose 125 H 111 H 126 H Lactic Acid Calcium Ionized Calcium Phosphorus Magnesium Total Bilirubin AST ALT Alkaline Phosphatase Ammonia Total Creatine Kinase CK-MB (CK-2) CK-MB (CK-2) Rel Index Total Protein Albumin Urine WBC (Auto) Vancomycin Trough Salicylates Acetaminophen Plasma/Serum Alcohol Crossmatch 03/03/20 03/03/20 03/03/20 00:18 06:11 11:50 WBC RBC Hgb Hct MCH RDW Plt Count Lymph % (Auto) [place] % (Auto) [place] # Baso # Seg Neutrophils % Seg Neuts % (Manual) Lymphocytes % (Manual) Monocytes % (Manual) Seg Neutrophils # Seg Neutrophils # Man Lymphocytes # (Manual) Monocytes # (Manual) Eosinophils # (Manual) Basophils # (Manual) PT INR APTT ABG pH ABG pO2 ABG HCO3 ABG O2 Saturation ABG Base Excess ABG Hemoglobin Oxyhemoglobin Sodium Potassium Chloride Carbon Dioxide BUN Creatinine Glucose POC Glucose 139 H 155 H 118 H Lactic Acid Calcium Ionized Calcium Phosphorus Magnesium Total Bilirubin AST ALT Alkaline Phosphatase Ammonia Total Creatine Kinase CK-MB (CK-2) CK-MB (CK-2) Rel Index Total Protein Albumin Urine WBC (Auto) Vancomycin Trough Salicylates Acetaminophen Plasma/Serum Alcohol Crossmatch 03/03/20 03/03/20 03/04/20 18:09 23:46 05:37 WBC RBC Hgb Hct MCH RDW Plt Count Lymph % (Auto) [place] % (Auto) [place] # Baso # Seg Neutrophils % Seg Neuts % (Manual) Lymphocytes % (Manual) Monocytes % (Manual) Seg Neutrophils # Seg Neutrophils # Man Lymphocytes # (Manual) Monocytes # (Manual) Eosinophils # (Manual) Basophils # (Manual) PT INR APTT ABG pH ABG pO2 ABG HCO3 ABG O2 Saturation ABG Base Excess ABG Hemoglobin Oxyhemoglobin Sodium Potassium Chloride Carbon Dioxide BUN Creatinine Glucose POC Glucose 109 H 132 H 111 H Lactic Acid Calcium Ionized Calcium Phosphorus Magnesium Total Bilirubin AST ALT Alkaline Phosphatase Ammonia Total Creatine Kinase CK-MB (CK-2) CK-MB (CK-2) Rel Index Total Protein Albumin Urine WBC (Auto) Vancomycin Trough Salicylates Acetaminophen Plasma/Serum Alcohol Crossmatch 03/04/20 03/04/20 03/05/20 11:38 17:54 00:14 WBC RBC Hgb Hct MCH RDW Plt Count Lymph % (Auto) [place] % (Auto) [place] # Baso # Seg Neutrophils % Seg Neuts % (Manual) Lymphocytes % (Manual) Monocytes % (Manual) Seg Neutrophils # Seg Neutrophils # Man Lymphocytes # (Manual) Monocytes # (Manual) Eosinophils # (Manual) Basophils # (Manual) PT INR APTT ABG pH ABG pO2 ABG HCO3 ABG O2 Saturation ABG Base Excess ABG Hemoglobin Oxyhemoglobin Sodium Potassium Chloride Carbon Dioxide BUN Creatinine Glucose POC Glucose 138 H 118 H 134 H Lactic Acid Calcium Ionized Calcium Phosphorus Magnesium Total Bilirubin AST ALT Alkaline Phosphatase Ammonia Total Creatine Kinase CK-MB (CK-2) CK-MB (CK-2) Rel Index Total Protein Albumin Urine WBC (Auto) Vancomycin Trough Salicylates Acetaminophen Plasma/Serum Alcohol Crossmatch 03/06/20 03/06/20 03/06/20 03:37 03:37 06:29 WBC RBC Hgb Hct MCH RDW Plt Count 550 H Lymph % (Auto) [place] % (Auto) 9.1 H [place] # Baso # Seg Neutrophils % Seg Neuts % (Manual) Lymphocytes % (Manual) Monocytes % (Manual) Seg Neutrophils # Seg Neutrophils # Man Lymphocytes # (Manual) Monocytes # (Manual) Eosinophils # (Manual) Basophils # (Manual) PT INR APTT ABG pH ABG pO2 ABG HCO3 ABG O2 Saturation ABG Base Excess ABG Hemoglobin Oxyhemoglobin Sodium Potassium Chloride Carbon Dioxide BUN 26 H Creatinine 0.5 L Glucose POC Glucose 128 H Lactic Acid Calcium 10.4 H Ionized Calcium Phosphorus Magnesium Total Bilirubin AST ALT Alkaline Phosphatase Ammonia Total Creatine Kinase CK-MB (CK-2) CK-MB (CK-2) Rel Index Total Protein Albumin Urine WBC (Auto) Vancomycin Trough Salicylates Acetaminophen Plasma/Serum Alcohol Crossmatch 03/06/20 03/07/20 03/07/20 17:47 06:37 12:37 WBC RBC Hgb Hct MCH RDW Plt Count Lymph % (Auto) [place] % (Auto) [place] # Baso # Seg Neutrophils % Seg Neuts % (Manual) Lymphocytes % (Manual) Monocytes % (Manual) Seg Neutrophils # Seg Neutrophils # Man Lymphocytes # (Manual) Monocytes # (Manual) Eosinophils # (Manual) Basophils # (Manual) PT INR APTT ABG pH ABG pO2 ABG HCO3 ABG O2 Saturation ABG Base Excess ABG Hemoglobin Oxyhemoglobin Sodium Potassium Chloride Carbon Dioxide BUN Creatinine Glucose POC Glucose 120 H 113 H 118 H Lactic Acid Calcium Ionized Calcium Phosphorus Magnesium Total Bilirubin AST ALT Alkaline Phosphatase Ammonia Total Creatine Kinase CK-MB (CK-2) CK-MB (CK-2) Rel Index Total Protein Albumin Urine WBC (Auto) Vancomycin Trough Salicylates Acetaminophen Plasma/Serum Alcohol Crossmatch 03/07/20 03/08/20 03/08/20 16:41 00:55 06:25 WBC RBC Hgb Hct MCH RDW Plt Count Lymph % (Auto) [place] % (Auto) [place] # Baso # Seg Neutrophils % Seg Neuts % (Manual) Lymphocytes % (Manual) Monocytes % (Manual) Seg Neutrophils # Seg Neutrophils # Man Lymphocytes # (Manual) Monocytes # (Manual) Eosinophils # (Manual) Basophils # (Manual) PT INR APTT ABG pH ABG pO2 ABG HCO3 ABG O2 Saturation ABG Base Excess ABG Hemoglobin Oxyhemoglobin Sodium Potassium Chloride Carbon Dioxide BUN Creatinine Glucose POC Glucose 108 H 139 H 127 H Lactic Acid Calcium Ionized Calcium Phosphorus Magnesium Total Bilirubin AST ALT Alkaline Phosphatase Ammonia Total Creatine Kinase CK-MB (CK-2) CK-MB (CK-2) Rel Index Total Protein Albumin Urine WBC (Auto) Vancomycin Trough Salicylates Acetaminophen Plasma/Serum Alcohol Crossmatch 03/08/20 03/08/20 03/08/20 12:49 13:25 17:13 WBC RBC Hgb Hct MCH RDW Plt Count Lymph % (Auto) [place] % (Auto) [place] # Baso # Seg Neutrophils % Seg Neuts % (Manual) Lymphocytes % (Manual) Monocytes % (Manual) Seg Neutrophils # Seg Neutrophils # Man Lymphocytes # (Manual) Monocytes # (Manual) Eosinophils # (Manual) Basophils # (Manual) PT INR APTT ABG pH ABG pO2 71.1 L ABG HCO3 26.2 H ABG O2 Saturation ABG Base Excess ABG Hemoglobin 8.2 L Oxyhemoglobin 94.8 L Sodium Potassium Chloride Carbon Dioxide BUN Creatinine Glucose POC Glucose 127 H 147 H Lactic Acid Calcium Ionized Calcium Phosphorus Magnesium Total Bilirubin AST ALT Alkaline Phosphatase Ammonia Total Creatine Kinase CK-MB (CK-2) CK-MB (CK-2) Rel Index Total Protein Albumin Urine WBC (Auto) Vancomycin Trough Salicylates Acetaminophen Plasma/Serum Alcohol Crossmatch 03/09/20 03/09/20 03/09/20 06:28 08:36 23:58 WBC RBC Hgb Hct MCH RDW Plt Count Lymph % (Auto) [place] % (Auto) [place] # Baso # Seg Neutrophils % Seg Neuts % (Manual) Lymphocytes % (Manual) Monocytes % (Manual) Seg Neutrophils # Seg Neutrophils # Man Lymphocytes # (Manual) Monocytes # (Manual) Eosinophils # (Manual) Basophils # (Manual) PT INR APTT ABG pH ABG pO2 ABG HCO3 ABG O2 Saturation ABG Base Excess ABG Hemoglobin Oxyhemoglobin Sodium Potassium Chloride Carbon Dioxide BUN Creatinine Glucose POC Glucose 139 H 167 H 122 H Lactic Acid Calcium Ionized Calcium Phosphorus Magnesium Total Bilirubin AST ALT Alkaline Phosphatase Ammonia Total Creatine Kinase CK-MB (CK-2) CK-MB (CK-2) Rel Index Total Protein Albumin Urine WBC (Auto) Vancomycin Trough Salicylates Acetaminophen Plasma/Serum Alcohol Crossmatch 03/10/20 03/10/20 03/11/20 06:32 23:27 06:23 WBC RBC Hgb Hct MCH RDW Plt Count Lymph % (Auto) [place] % (Auto) [place] # Baso # Seg Neutrophils % Seg Neuts % (Manual) Lymphocytes % (Manual) Monocytes % (Manual) Seg Neutrophils # Seg Neutrophils # Man Lymphocytes # (Manual) Monocytes # (Manual) Eosinophils # (Manual) Basophils # (Manual) PT INR APTT ABG pH ABG pO2 ABG HCO3 ABG O2 Saturation ABG Base Excess ABG Hemoglobin Oxyhemoglobin Sodium Potassium Chloride Carbon Dioxide BUN Creatinine Glucose POC Glucose 165 H 115 H 139 H Lactic Acid Calcium Ionized Calcium Phosphorus Magnesium Total Bilirubin AST ALT Alkaline Phosphatase Ammonia Total Creatine Kinase CK-MB (CK-2) CK-MB (CK-2) Rel Index Total Protein Albumin Urine WBC (Auto) Vancomycin Trough Salicylates Acetaminophen Plasma/Serum Alcohol Crossmatch 03/11/20 03/11/20 03/12/20 12:29 18:02 04:53 WBC RBC Hgb Hct MCH RDW Plt Count 625 H Lymph % (Auto) [place] % (Auto) [place] # Baso # Seg Neutrophils % Seg Neuts % (Manual) Lymphocytes % (Manual) Monocytes % (Manual) Seg Neutrophils # Seg Neutrophils # Man Lymphocytes # (Manual) Monocytes # (Manual) Eosinophils # (Manual) Basophils # (Manual) PT INR APTT ABG pH ABG pO2 ABG HCO3 ABG O2 Saturation ABG Base Excess ABG Hemoglobin Oxyhemoglobin Sodium Potassium Chloride Carbon Dioxide BUN Creatinine Glucose POC Glucose 164 H 113 H Lactic Acid Calcium Ionized Calcium Phosphorus Magnesium Total Bilirubin AST ALT Alkaline Phosphatase Ammonia Total Creatine Kinase CK-MB (CK-2) CK-MB (CK-2) Rel Index Total Protein Albumin Urine WBC (Auto) Vancomycin Trough Salicylates Acetaminophen Plasma/Serum Alcohol Crossmatch 03/12/20 03/12/20 03/12/20 04:53 06:26 12:38 WBC RBC Hgb Hct MCH RDW Plt Count Lymph % (Auto) [place] % (Auto) [place] # Baso # Seg Neutrophils % Seg Neuts % (Manual) Lymphocytes % (Manual) Monocytes % (Manual) Seg Neutrophils # Seg Neutrophils # Man Lymphocytes # (Manual) Monocytes # (Manual) Eosinophils # (Manual) Basophils # (Manual) PT INR APTT ABG pH ABG pO2 ABG HCO3 ABG O2 Saturation ABG Base Excess ABG Hemoglobin Oxyhemoglobin Sodium Potassium 5.3 H Chloride Carbon Dioxide BUN 34 H Creatinine Glucose 159 H POC Glucose 149 H 130 H Lactic Acid Calcium 10.7 H Ionized Calcium Phosphorus Magnesium Total Bilirubin AST ALT Alkaline Phosphatase Ammonia Total Creatine Kinase CK-MB (CK-2) CK-MB (CK-2) Rel Index Total Protein Albumin Urine WBC (Auto) Vancomycin Trough Salicylates Acetaminophen Plasma/Serum Alcohol Crossmatch 03/13/20 03/13/20 03/13/20 03:50 06:12 18:11 WBC RBC Hgb Hct MCH RDW Plt Count Lymph % (Auto) [place] % (Auto) [place] # Baso # Seg Neutrophils % Seg Neuts % (Manual) Lymphocytes % (Manual) Monocytes % (Manual) Seg Neutrophils # Seg Neutrophils # Man Lymphocytes # (Manual) Monocytes # (Manual) Eosinophils # (Manual) Basophils # (Manual) PT INR APTT ABG pH ABG pO2 ABG HCO3 ABG O2 Saturation ABG Base Excess ABG Hemoglobin Oxyhemoglobin Sodium Potassium Chloride Carbon Dioxide 20 L BUN 30 H Creatinine 0.6 L Glucose 153 H POC Glucose 124 H 111 H Lactic Acid Calcium Ionized Calcium Phosphorus Magnesium Total Bilirubin AST ALT Alkaline Phosphatase Ammonia Total Creatine Kinase CK-MB (CK-2) CK-MB (CK-2) Rel Index Total Protein Albumin Urine WBC (Auto) Vancomycin Trough Salicylates Acetaminophen Plasma/Serum Alcohol Crossmatch 03/14/20 03/14/20 03/15/20 12:01 15:40 00:02 WBC RBC Hgb Hct MCH RDW Plt Count Lymph % (Auto) [place] % (Auto) [place] # Baso # Seg Neutrophils % Seg Neuts % (Manual) Lymphocytes % (Manual) Monocytes % (Manual) Seg Neutrophils # Seg Neutrophils # Man Lymphocytes # (Manual) Monocytes # (Manual) Eosinophils # (Manual) Basophils # (Manual) PT INR APTT ABG pH ABG pO2 ABG HCO3 ABG O2 Saturation ABG Base Excess ABG Hemoglobin Oxyhemoglobin Sodium Potassium Chloride Carbon Dioxide BUN Creatinine Glucose POC Glucose 116 H 125 H 143 H Lactic Acid Calcium Ionized Calcium Phosphorus Magnesium Total Bilirubin AST ALT Alkaline Phosphatase Ammonia Total Creatine Kinase CK-MB (CK-2) CK-MB (CK-2) Rel Index Total Protein Albumin Urine WBC (Auto) Vancomycin Trough Salicylates Acetaminophen Plasma/Serum Alcohol Crossmatch 03/15/20 12:03 WBC RBC Hgb Hct MCH RDW Plt Count Lymph % (Auto) [place] % (Auto) [place] # Baso # Seg Neutrophils % Seg Neuts % (Manual) Lymphocytes % (Manual) Monocytes % (Manual) Seg Neutrophils # Seg Neutrophils # Man Lymphocytes # (Manual) Monocytes # (Manual) Eosinophils # (Manual) Basophils # (Manual) PT INR APTT ABG pH ABG pO2 ABG HCO3 ABG O2 Saturation ABG Base Excess ABG Hemoglobin Oxyhemoglobin Sodium Potassium Chloride Carbon Dioxide BUN Creatinine Glucose POC Glucose 106 H Lactic Acid Calcium Ionized Calcium Phosphorus Magnesium Total Bilirubin AST ALT Alkaline Phosphatase Ammonia Total Creatine Kinase CK-MB (CK-2) CK-MB (CK-2) Rel Index Total Protein Albumin Urine WBC (Auto) Vancomycin Trough Salicylates Acetaminophen Plasma/Serum Alcohol Crossmatch Chest x-ray: image reviewed (clear) Allied health notes reviewed: RT
[2020-03-15] MEDS: HALOPERIDOL LACTATE 5 MG/1 ML INJ IM PRN (17:02)
[2020-03-15] MEDS: ENOXAPARIN 40 MG/0.4 ML INJ SUB-Q SCH (21:46)
[2020-03-16] MEDS: LEVALBUTEROL 0.63 MG/3 ML NEBU IH SCH ×3 (06:20→17:21)
[2020-03-16] MEDS: HALOPERIDOL LACTATE 5 MG/1 ML INJ IM PRN (08:35)
--- NOTE | 2020-03-16 09:37 | Progress Note ---
Assessment and Plan Assessment and plan: 54-year-old female with a past medical history of Hypertension, Depression, Tobacco use Disorder, Alcohol use Disorder as confirmed by Daughter and pt's mother presents to the hospital status post cardiac arrest at home. EMS found pt in [facility]. They were unable to intubate patient with a ET tube because she was clenching down therefore Joe airway placed. Per the ED physician who evaluated pt, Patient presented with a pulse, intermittent respirations, and bagging support via Joe airway with O2 sat of 100%. Accu-Chek of 71 obtained by EMS. She was intubated in the ER and called for admission. Following admission patient was diagnosed with anoxic brain injury, sepsis with MRSA bacteremia and MSSA pneumonia, alcoholic liver disease. Family member initially wished for full code then changed to DNR, patient treated with IV antibiotics for sepsis, status post trach and PEG on 12/13/19. Weaned off from the vent and put on T- piece. Patient is uninsured, waiting for placement, guarded prognosis. 03/07: Returning to service no acute changes are noted. Continue current management while awaiting placement. Intermittent labs. Base of neck also around tracheostomy tube preventing downgrading. Continue appropriate wound care. 03/08: Plan of care unchanged continues on aerosol trach collar 28% of oxygen. Continue wound care management placement still pending status decision. 03/09: Continue current treatment plan. Continue aspiration precaution 03/10: Continue current management, Restraints as patient still pulling, awaiting placement 03/11: Continue supportive care, intermittent suctioning and pulmonary toilet. awaiting placement. 03/12: Continue supportive care, Give a bolus of fluids due to Hypercalcemia, Monitor Hyperkalemia with labs in am, No arrhythmia. Patient vomiting, concern for aspiration, Chest xray ordered and no active disease noted. Keep HOB >45% 03/13: No evidence of aspiration on xray. Continue supportive care. 03/14: Continue supportive care. Capping trials to start. Discussed with patients nursing and case management to continue daily PT by the Rehab team. 03/15: Discussed again with staff to start capping trial. 03/16: Do not see any indication the capping trial has started will discuss with respiratory therapist. Continue restraints. Still awaiting family decision patient has had some remarkable improvement considering the fact that she was able to stay around night without restraints. We will continue daily trial of this method. Discussed plan with nursing staff / Anoxic brain injury: suspected CT head: No acute abnormality. EEG ordered showed Generalized slowing. No seizures or epileptiform activity. -Patient now opening her eyes, can speak and able to follow command -As needed haldol for agitation /Acute Respiratory failure -due to MSSA PNA -s/p intubation, s/p trach and PEG on 12/12 with mechanical ventilation, now on T-piece - CTA was done and negative for PE, - Echo quality is poor, showed diastolic dysfunction - continue weaning as tolerated -Continue appropriate and adequate tracheostomy care /Tracheostomy site ulceration -Continue appropriate wound management try to keep area dry. /Anemia, microcytic - Status post 3 units PRBC transfusion, H&H low stable /Acute metabolic encephalopathy/toxic encephalopathy due to the above - cont supportive care /Hyperammonemia - likely from liver disease related to EtOH abuse - Patient had elevated ammonia level and treated with lactulose /Metabolic Acidosis -Alcohol ketoacidosis vs hypoprofusion -Continue to monitor /ELevated LFTs, stable now - due to ischemic hepatitis. /Leucocytosis with sepsis - Source MRSA bacteremia and MSSA pneumonia. UA showed pyuria. RUQ US showed no ascites. - Repeat TTE negative for vegetation. Completed 7 days of Ceftriaxone on 11/29/2019. -Treated with Abx vancomycin 1 gm IV q 12 hour total 2 week till 12/30/2019 /Severe protein calorie malnutrition Dietitian consult to assist in management. /MSSA pneumonia: Status post vancomycin till 12/30/2019 /Alcohol use Disorder - given ongoing Alcohol use almost daily, s/p IV Thiamine - monitor /Severe hypokalemia -Repleted /Seizure disorder: treat with Keppra /H. Influenzae, tracheobronchitis, treated with abx /Moderate to severe fecal impaction - will add stool softner DNR CODE STATUS Disposition: prognosis guarded. Family okay for DNR, PT recommended subacute rehab, discharge pending on placement. negative for COVID 19 History Interval history: Patient seen and examined no clinical change at this time continues on ATC at 28% off oxygen. Did well off restraints last night but this morning try to get out of bed and pulled on her trach. Restraints back on Hospitalist Physical - Physical exam Narrative exam: General appearance: Present: Appears older than stated age Intermittent agitation - EENT Eyes: no scleral icterus, no conjunctival injection, pupil not reactive ENT: clear oral mucosa, dentition normal, no oropharyngeal erythema Ears: bilateral: normal - Neck Neck: trach on place with mild ulceration at the base. - Respiratory Respiratory effort: other (on T-piece) Respiratory: bilateral: rales - Cardiovascular Rhythm: regular Heart Sounds: Present: S1 & S2. Absent: gallop, rub Extremities: pulses intact, No edema, normal color - Gastrointestinal General gastrointestinal: Present: soft, non-tender, non-distended, normal bowel sounds - Integumentary Integumentary: clear, warm, dry - Musculoskeletal Musculoskeletal: No joint swelling or tenderness - Neurologic Neurologic: other (2+ reflexes throughout). respond to commend and nods head. generalized weakness, verbal - Psychiatric Psychiatric: co-operative - Constitutional Vitals: Temp Pulse Resp BP Pulse Ox 97.7 F 94 H 18 118/81 100 03/16/20 07:53 03/16/20 07:53 03/16/20 07:53 03/16/20 07:53 03/16/20 07:53 General appearance: Present: mild distress, cachectic, disheveled, other (Noncommunicative) HEART Score - HEART Score Troponin: Troponin T < 0.010 ng/mL (0.00-0.029) 11/22/19 23:27 Results - Labs CBC & Chem 7: 03/12/20 04:53 03/13/20 03:50 Labs: Laboratory Last Values WBC 9.1 K/mm3 (4.5-11.0) 03/12/20 04:53 RBC 3.90 M/mm3 (3.65-5.03) 03/12/20 04:53 Hgb 11.5 gm/dl (10.1-14.3) 03/12/20 04:53 Hct 34.2 % (30.3-42.9) 03/12/20 04:53 MCV 88 fl (79-97) 03/12/20 04:53 MCH 29 pg (28-32) 03/12/20 04:53 MCHC 34 % (30-34) 03/12/20 04:53 RDW 14.4 % (13.2-15.2) 03/12/20 04:53 Plt Count 625 K/mm3 (140-440) H 03/12/20 04:53 Lymph % (Auto) 27.8 % (13.4-35.0) 03/06/20 03:37 [place] % (Auto) 9.1 % (0.0-7.3) H 03/06/20 03:37 Eos % (Auto) 2.8 % (0.0-4.3) 03/06/20 03:37 Baso % (Auto) 0.7 % (0.0-1.8) 03/06/20 03:37 Lymph # 2.2 K/mm3 (1.2-5.4) 03/06/20 03:37 [place] [place] # 0.7 K/mm3 (0.0-0.8) 03/06/20 03:37 Eos # 0.2 K/mm3 (0.0-0.4) 03/06/20 03:37 Baso # 0.1 K/mm3 (0.0-0.1) 03/06/20 03:37 Add Manual Diff Complete 12/25/19 03:47 Total Counted 200 12/25/19 03:47 Seg Neutrophils % 59.6 % (40.0-70.0) 03/06/20 03:37 Seg Neuts % (Manual) 97.5 % (40.0-70.0) H 12/25/19 03:47 Band Neutrophils % 0 % 12/25/19 03:47 Lymphocytes % (Manual) 1.0 % (13.4-35.0) L 12/25/19 03:47 Reactive Lymphs % (Man) 0 % 12/25/19 03:47 Monocytes % (Manual) 1.5 % (0.0-7.3) 12/25/19 03:47 Eosinophils % (Manual) 0 % (0.0-4.3) 12/25/19 03:47 Basophils % (Manual) 0 % (0.0-1.8) 12/25/19 03:47 Metamyelocytes % 0 % 12/25/19 03:47 Myelocytes % 0 % 12/25/19 03:47 Promyelocytes % 0 % 12/25/19 03:47 Blast Cells % 0 % 12/25/19 03:47 Nucleated RBC % Not Reportable 12/25/19 03:47 Seg Neutrophils # 4.8 K/mm3 (1.8-7.7) 03/06/20 03:37 Seg Neutrophils # Man 35.3 K/mm3 (1.8-7.7) H 12/25/19 03:47 Band Neutrophils # 0.0 K/mm3 12/25/19 03:47 Lymphocytes # (Manual) 0.4 K/mm3 (1.2-5.4) L 12/25/19 03:47 Abs React Lymphs (Man) 0.0 K/mm3 12/25/19 03:47 Monocytes # (Manual) 0.5 K/mm3 (0.0-0.8) 12/25/19 03:47 Eosinophils # (Manual) 0.0 K/mm3 (0.0-0.4) 12/25/19 03:47 Basophils # (Manual) 0.0 K/mm3 (0.0-0.1) 12/25/19 03:47 Metamyelocytes # 0.0 K/mm3 12/25/19 03:47 Myelocytes # 0.0 K/mm3 12/25/19 03:47 Promyelocytes # 0.0 K/mm3 12/25/19 03:47 Blast Cells # 0.0 K/mm3 12/25/19 03:47 Pathologist Review 12/13/19 07:48 WBC Morphology Not Reportable 12/25/19 03:47 Hypersegmented Neuts Not Reportable 12/25/19 03:47 Hyposegmented Neuts Not Reportable 12/25/19 03:47 Hypogranular Neuts Not Reportable 12/25/19 03:47 Smudge Cells Not Reportable 12/25/19 03:47 Toxic Granulation Not Reportable 12/25/19 03:47 Toxic Vacuolation Not Reportable 12/25/19 03:47 Dohle Bodies Not Reportable 12/25/19 03:47 Pelger-Huet Anomaly Not Reportable 12/25/19 03:47 Dominique Rods Not Reportable 12/25/19 03:47 Platelet Estimate Consistent w auto 12/25/19 03:47 Clumped Platelets Not Reportable 12/25/19 03:47 Plt Clumps, EDTA Not Reportable 12/25/19 03:47 Large Platelets Not Reportable 12/25/19 03:47 Giant Platelets Not Reportable 12/25/19 03:47 Platelet Satelliting Not Reportable 12/25/19 03:47 Plt Morphology Comment Not Reportable 12/25/19 03:47 RBC Morphology Not Reportable 12/25/19 03:47 Dimorphic RBCs Not Reportable 12/25/19 03:47 Polychromasia Not Reportable 12/25/19 03:47 Hypochromasia Not Reportable 12/25/19 03:47 Poikilocytosis Not Reportable 12/25/19 03:47 Anisocytosis 1+ 12/25/19 03:47 Microcytosis Not Reportable 12/25/19 03:47 Macrocytosis Not Reportable 12/25/19 03:47 Spherocytes Not Reportable 12/25/19 03:47 Pappenheimer Bodies Not Reportable 12/25/19 03:47 Sickle Cells Not Reportable 12/25/19 03:47 Target Cells Not Reportable 12/25/19 03:47 Tear Drop Cells Not Reportable 12/25/19 03:47 Ovalocytes Not Reportable 12/25/19 03:47 Helmet Cells Not Reportable 12/25/19 03:47 [place] Bodies Not Reportable 12/25/19 03:47 [place] Rings Not Reportable 12/25/19 03:47 [place] Cells Not Reportable 12/25/19 03:47 Bite Cells Not Reportable 12/25/19 03:47 Crenated Cell Not Reportable 12/25/19 03:47 Elliptocytes Not Reportable 12/25/19 03:47 Acanthocytes (Spur) Not Reportable 12/25/19 03:47 Rouleaux Not Reportable 12/25/19 03:47 Hemoglobin C Crystals Not Reportable 12/25/19 03:47 Schistocytes Not Reportable 12/25/19 03:47 Malaria parasites Not Reportable 12/25/19 03:47 Gregg Bodies Not Reportable 12/25/19 03:47 Hem Pathologist Commnt No 12/25/19 03:47 PT 17.0 Sec. (12.2-14.9) H 11/23/19 03:47 INR 1.36 (0.87-1.13) H 11/23/19 03:47 APTT 128.2 Sec. (24.2-36.6) H* 11/23/19 03:47 Heparin Anti-Xa Level 0.31 U.I./ml (0.3-0.7) 11/23/19 09:03 ABG pH 7.433 pH Units (7.350-7.450) 03/08/20 13:25 ABG pCO2 40.2 mm Hg 03/08/20 13:25 ABG pO2 71.1 mm Hg (80.0-90.0) L 03/08/20 13:25 ABG HCO3 26.2 mmol/L (20.0-26.0) H 03/08/20 13:25 ABG O2 Saturation 97.0 % (95.0-99.0) 03/08/20 13:25 ABG O2 Content 11.0 (0.0-44) 03/08/20 13:25 ABG Base Excess 1.8 mmol/L (-2.0-3.0) 03/08/20 13:25 ABG Hemoglobin 8.2 gm/dl (12.0-16.0) L 03/08/20 13:25 ABG Carboxyhemoglobin 1.7 % (0.0-5.0) 03/08/20 13:25 ABG Methemoglobin 0.5 % (0.0-1.5) 03/08/20 13:25 Oxyhemoglobin 94.8 % (95.0-99.0) L 03/08/20 13:25 FiO2 21 % 03/08/20 13:25 Sodium 137 mmol/L (137-145) 03/13/20 03:50 Potassium 3.8 mmol/L (3.6-5.0) D 03/13/20 03:50 Chloride 103.1 mmol/L (98-107) 03/13/20 03:50 Carbon Dioxide 20 mmol/L (22-30) L 03/13/20 03:50 Anion Gap 18 mmol/L 03/13/20 03:50 BUN 30 mg/dL (7-17) H 03/13/20 03:50 Creatinine 0.6 mg/dL (0.7-1.2) L 03/13/20 03:50 Estimated GFR > 60 ml/min 03/13/20 03:50 BUN/Creatinine Ratio 50 % 03/13/20 03:50 Glucose 153 mg/dL (65-100) H 03/13/20 03:50 POC Glucose 104 (70-105) 03/16/20 05:41 Lactic Acid 1.80 mmol/L (0.7-2.0) 11/25/19 05:05 Calcium 10.0 mg/dL (8.4-10.2) 03/13/20 03:50 Ionized Calcium 4.5 mg/dL (4.8-5.6) L 11/23/19 06:32 Phosphorus 4.20 mg/dL (2.5-4.5) D 11/28/19 08:59 Magnesium 1.90 mg/dL (1.7-2.3) 02/28/20 03:40 Total Bilirubin 0.40 mg/dL (0.1-1.2) 12/13/19 07:48 AST 27 units/L (5-40) 12/13/19 07:48 ALT 26 units/L (7-56) 12/13/19 07:48 Alkaline Phosphatase 316 units/L (35-129) H 12/13/19 07:48 Ammonia 42.0 umol/L (25-60) 11/29/19 13:41 Total Creatine Kinase 139 units/L (30-135) H 11/22/19 23:27 CK-MB (CK-2) 8.3 ng/mL (0.0-4.0) H 11/22/19 23:27 CK-MB (CK-2) Rel Index 5.9 (0-4) H 11/22/19 23:27 Troponin T < 0.010 ng/mL (0.00-0.029) 11/22/19 23:27 Total Protein 6.8 g/dL (6.3-8.2) 12/13/19 07:48 Albumin 2.4 g/dL (3.9-5) L 12/13/19 07:48 Albumin/Globulin Ratio 0.5 % 12/13/19 07:48 Lipase 18 units/L (13-60) 11/23/19 00:34 Procalcitonin 1.09 ng/mL (<0.15) 11/23/19 04:53 TSH 1.010 mlU/mL (0.270-4.200) 02/12/20 07:36 Free T4 1.08 ng/dL (0.76-1.46) 02/12/20 07:36 Urine Color Yellow (Yellow) 12/16/19 Unknown Urine Turbidity Slightly-cloudy (Clear) 12/16/19 Unknown Urine pH 5.0 (5.0-7.0) 12/16/19 Unknown Ur Specific [place] 1.018 (1.003-1.030) 12/16/19 Unknown Urine Protein 30 mg/dl mg/dL (Negative) 12/16/19 Unknown Urine Glucose (UA) Neg mg/dL (Negative) 12/16/19 Unknown Urine Ketones Neg mg/dL (Negative) 12/16/19 Unknown Urine Blood Sm (Negative) 12/16/19 Unknown Urine Nitrite Neg (Negative) 12/16/19 Unknown Urine Bilirubin Neg (Negative) 12/16/19 Unknown Urine Urobilinogen < 2.0 mg/dL (<2.0) 12/16/19 Unknown Ur Leukocyte Esterase Neg (Negative) 12/16/19 Unknown Urine WBC (Auto) 6.0 /HPF (0.0-6.0) 12/16/19 Unknown Urine RBC (Auto) 9.0 /HPF (0.0-6.0) 12/16/19 Unknown U Epithel Cells (Auto) < 1.0 /HPF (0-13.0) 12/16/19 Unknown Urine Bacteria (Auto) 2+ /HPF (Negative) 11/22/19 23:17 Hyaline Casts 3 /LPF 12/16/19 Unknown Granular Casts 3 /LPF 12/16/19 Unknown Urine Mucus Few /HPF 12/16/19 Unknown Vancomycin Trough 33.8 ug/mL (5.0-20.0) H 12/21/19 08:56 Random Vancomycin 16.2 ug/mL (0-40.0) 12/24/19 04:31 Salicylates < 0.3 mg/dL (2.8-20.0) L 11/22/19 23:27 Urine Opiates Screen Presumptive negative 11/22/19 23:17 Urine Methadone Screen Presumptive negative 11/22/19 23:17 Acetaminophen < 5.0 ug/mL (10.0-30.0) L 11/22/19 23:27 Ur Barbiturates Screen Presumptive negative 11/22/19 23:17 Ur Phencyclidine Scrn Presumptive negative 11/22/19 23:17 Ur Amphetamines Screen Presumptive negative 11/22/19 23:17 U Benzodiazepines Scrn Presumptive negative 11/22/19 23:17 Urine Cocaine Screen Presumptive negative 11/22/19 23:17 U Marijuana (THC) Screen Presumptive negative 11/22/19 23:17 Drugs of Abuse Note Disclamer 11/22/19 23:17 Plasma/Serum Alcohol 0.08 % (0-0.07) H 11/22/19 23:27 Coronavirus (PCR) Negative (Negative) 02/05/20 07:50 Hepatitis A IgM Ab Non-reactive (NonReactive) 11/23/19 01:19 Hep Bs Antigen Non-reactive (Negative) 11/23/19 01:19 Hep B Core IgM Ab Non-reactive (NonReactive) 11/23/19 01:19 Hepatitis C Antibody Non-reactive (NonReactive) 11/23/19 01:19 Blood Type O POSITIVE 12/21/19 14:54 Antibody Screen Negative 12/21/19 14:54 Crossmatch See Detail 12/21/19 14:54 - Diagnostic Impressions Diagnostic Impressions: Echocardiogram 11/23/19 03:58 Transthoracic Echocardiogram Indication: Cardiac arrest BP: 131/89 HR: 115 Conclusions *The study quality is technically difficult. *Global left ventricular wall motion and contractility are within normal limits. *The estimated ejection fraction is 55-60%. *Abnormal left ventricular diastolic filling is observed, consistent with impaired relaxation. *There is no pericardial effusion. Findings Procedure Info: The study quality is technically difficult. The study was technically limited due to the patient's inability to lay in the left lateral decubitus position. Left Ventricle: The left ventricular chamber size is normal. There is no left ventricular hypertrophy. Global left ventricular wall motion and contractility are within normal limits. Global left ventricular systolic function is normal. The estimated ejection fraction is 55-60%. Abnormal left ventricular diastolic filling is observed, consistent with impaired relaxation. Left Atrium: The left atrial chamber size is normal. Aortic Valve: The aortic valve leaflets are mildly thickened. Mitral Valve: The mitral valve leaflets are mildly thickened. There is no evidence of mitral regurgitation. Tricuspid Valve: The tricuspid valve leaflets are normal. There is trace tricuspid regurgitation. The right ventricular systolic pressure is calculated at 33 mmHg. Pulmonic Valve: The pulmonic valve appears normal. Pericardium: The pericardium appears normal. There is no pericardial effusion. Aorta: The aorta appears normal. Venous: The inferior vena cava appears normal in size. Measurements Chambers 2D Name Value Normal Range IVSd (2D) 0.94 cm (0.6 - 1.1) LVPWd (2D) 0.81 cm (0.6 - 1.1) LVIDd (2D) 3.6 cm (3.7 - 5.6) LVIDs (2D) 2.27 cm (2 - 3.8) LV FS (2D) 36.93 % - EF Teichholz (2D) 67.76 % - Ao root diameter (2D) 3.03 cm (2 - 3.7) Volumes/Mass Name Value Normal Range LA ESV SP 4CH (A/L) 16.89 ml - LA ESV SP 4CH (MOD) 15.52 ml - Diastolic/Systolic Function Name Value Normal Range MV E-wave Vmax 0.55 m/sec - MV deceleration time 200.89 msec - MV A-wave Vmax 0.68 m/sec - MV E:A ratio 0.82 ratio - Aortic Valve Name Value Normal Range AV Vmax 1.1 m/sec - AV VTI 15.9 cm - AV peak gradient 4.86 mmHg - AV mean gradient 2.59 mmHg - LVOT diameter 2 cm - LVOT Vmax 1.03 m/sec - LVOT VTI 15.87 cm - LVOT peak gradient 4.24 mmHg - LVOT mean gradient 2.41 mmHg - SV LVOT 49.77 ml - JOSÉ MIGUEL (continuity Vmax) 2.93 cm2 - JOSÉ MIGUEL (continuity VTI) 3.13 cm2 - Tricuspid Valve Name Value Normal Range TR Vmax 2.74 m/sec - TR peak gradient 303 mmHg - RAP 3 mmHg - RVSP 33 mmHg - IVC diameter 1.77 cm (1.2 - 2.3) Pulmonic Valve/Qp:Qs Name Value Normal Range PV Vmax 0.77 m/sec - PV peak gradient 2.4 mmHg - PV acceleration time 114.18 msec - Echocardiogram Limited Views 12/17/19 14:53 Transthoracic Echocardiogram Indication: R/O Vegetations BP: 144/83 HR: 133 Conclusions *Global left ventricular systolic function is mildly decreased. *The estimated ejection fraction is 45-50%. *A trivial pericardial effusion is visualized. Findings Left Ventricle: The left ventricular chamber size is normal. Global left ventricular systolic function is mildly decreased. The estimated ejection fraction is 45-50%. Left Atrium: The left atrial chamber size is normal. Right Ventricle: The right ventricular cavity size is normal. Right Atrium: The right atrial cavity size is normal. Aortic Valve: The aortic valve is not well visualized. There is no evidence of aortic regurgitation. Mitral Valve: The mitral valve leaflets are mildly thickened. There is trace of mitral regurgitation. Tricuspid Valve: The tricuspid valve leaflets are mildly thickened. There is trace tricuspid regurgitation. The right ventricular systolic pressure is calculated at 29 mmHg. Pulmonic Valve: The pulmonic valve is not well visualized. There is no evidence of pulmonic regurgitation. Pericardium: A trivial pericardial effusion is visualized. Aorta: There is no dilatation of the ascending aorta. There is no dilatation of the aortic root. Venous: The inferior vena cava appears normal in size. There is a greater than 50% respiratory change in the inferior vena cava dimension. Measurements Chambers 2D Name Value Normal Range IVSd (2D) 0.83 cm (0.6 - 1.1) LVPWd (2D) 0.98 cm (0.6 - 1.1) LVIDd (2D) 3.71 cm (3.7 - 5.6) LVIDs (2D) 2.93 cm (2 - 3.8) LV FS (2D) 21.12 % - EF Teichholz (2D) 43.71 % - Ao root diameter (2D) 3.02 cm (2 - 3.7) Volumes/Mass Name Value Normal Range LA ESV SP 4CH (A/L) 36.8 ml - LA ESV SP 2CH (A/L) 45.89 ml - LA ESV BP (A/L) 42.35 ml - LA ESV BP (A/L) index 26.63 ml/m2 - LA ESV SP 4CH (MOD) 34.42 ml - LA ESV SP 2CH (MOD) 44.21 ml - LA ESV BP (MOD) 39.82 ml - LA ESV BP (MOD) index 25.05 ml/m2 - Aortic Valve Name Value Normal Range LVOT diameter 1.63 cm - Tricuspid Valve Name Value Normal Range TR Vmax 2.56 m/sec - TR peak gradient 26 mmHg - RAP 3 mmHg - RVSP 29 mmHg - IVC diameter 1.83 cm (1.2 - 2.3) [place]/IV: Voiding Method Incontinent IV Catheter Type [Forearm] Peripheral IV IV Catheter Type [Left Forearm INT / Saline Lock ] IV Catheter Type [Right INT / Saline Lock Antecubital] IV Catheter Type [Right Hand] INT / Saline Lock IV Catheter Type [Right Wrist] Peripheral IV IV Catheter Type [Left Wrist] Peripheral IV IV Catheter Type [Left Peripheral IV Antecubital] IV Catheter Type [Right INT / Saline Lock Forearm] IV Catheter Type [Left Hand] INT / Saline Lock Active Medications - Current Medications Current Medications: Generic Name Dose Route Start Last Admin Trade Name Freq PRN Reason Stop Dose Admin Acetaminophen 650 mg 12/06/19 10:25 03/13/20 20:36 Tylenol FEEDTUBE 650 mg Q6H PRN Administration TEMP >/=100.3 Acetylcysteine 200 mg 02/16/20 20:00 03/15/20 21:30 Mucomyst Inhalation INHALATION 200 mg Q12HRT LUCHO Administration Alprazolam 1 mg 02/21/20 18:24 03/13/20 20:35 Xanax PO 1 mg Q8H PRN Administration Anxiety Lipase/Protease/Amylase 1 each 11/23/19 11:[address] 10,500 Unit FEEDTUBE PRN PRN Use w/ sod bicarb for FT Bisacodyl 10 mg 02/06/20 13:57 Dulcolax MA QDAY PRN Constipation unrelieved by MOM Docusate Sodium 100 mg 02/18/20 22:00 03/15/20 21:46 Colace FEEDTUBE 100 mg BID LUCHO Administration Enoxaparin Sodium 40 mg 03/07/20 22:00 03/15/20 21:46 Enoxaparin SUB-Q 40 mg QDAY@2200 LUCHO Administration Glycopyrrolate 2 mg 12/31/19 20:00 03/15/20 21:46 Robinul PO 2 mg TID LUCHO Administration Haloperidol Lactate 5 mg 03/05/20 09:22 03/16/20 08:35 Haldol IM 5 mg Q6H PRN Administration Agitation Hydralazine HCl 10 mg 11/24/19 00:45 03/03/20 05:57 Apresoline IV 10 mg Q6H PRN Administration SBP > 160 Hydroxyzine Pamoate 25 mg 12/06/19 10:00 03/15/20 21:46 Vistaril PO 25 mg BID LUCHO Administration Lansoprazole 30 mg 11/27/19 10:00 03/15/20 09:33 Prevacid Solutab FEEDTUBE 30 mg QDAY LUCHO Administration Levalbuterol HCl 0.63 mg 02/17/20 00:00 03/16/20 06:20 Xopenex IH Not Given Q8HRT LUCHO Levetiracetam 500 mg 11/29/19 10:00 03/15/20 21:47 Keppra PO 500 mg BID LUCHO Administration Metoprolol Tartrate 12.5 mg 02/23/20 22:00 03/15/20 21:46 Metoprolol PO 12.5 mg BID LUCHO Administration Mirtazapine 30 mg 12/06/19 10:00 03/15/20 09:35 Remeron PO 30 mg DAILY LUCHO Administration Nicotine 21 mg 02/16/20 13:00 03/15/20 09:36 Habitrol TD 21 mg QDAY LUCHO Administration Ondansetron HCl 4 mg 12/10/19 07:53 02/25/20 02:51 Zofran IV 4 mg Q4H PRN Administration Nausea And Vomiting Polyethylene Glycol 17 gm 02/06/20 13:57 Miralax 3350 PO QDAY PRN Constipation Quetiapine Fumarate 100 mg 03/06/20 10:00 03/15/20 21:47 Seroquel FEEDTUBE 100 mg BID LUCHO Administration Scopolamine 1 each 02/08/20 15:00 03/15/20 09:36 Transderm-Scop TD 1 each Q3D LUCHO Administration Sertraline HCl 25 mg 01/01/20 10:00 03/15/20 09:33 Zoloft PO 25 mg QDAY LUCHO Administration Simple Syrup 15 ml 11/23/19 11:50 Simple Syrup FEEDTUBE PRN PRN Hypoglycemia BG<70 Simple Syrup 30 ml 11/23/19 11:50 Simple Syrup FEEDTUBE PRN PRN Hypoglycemia Sodium Bicarbonate 325 mg 11/23/19 11:50 Sodium Bicarbonate FEEDTUBE PRN PRN For Clogged Feeding Tube Nutrition/Malnutrition Assess - Dietary Evaluation Nutrition/Malnutrition Findings: Nutrition Notes Start: 11/23/19 11:29 Freq: Status: Active Protocol: Document 03/13/20 14:31 LM (Rec: 03/13/20 14:32 LM -[email or web address]) Nutrition Notes Initial or Follow up Reassessment Current Diagnosis Hypertension Other Pertinent Diagnosis Cardaic arrest, ETOH dependence, UTI Current Diet Jevity 1.2 at 60ml/hr Labs/Tests Reviewed Pertinent Medications Reviewed Height 5 ft 6 in Weight 46.7 kg [place] Body Weight (kg) 59.09 BMI 16.6 Subjective/Other Information Pt tolerating TF at goal. Percent of energy/protein needs met: 97%/100% Burn Absent Trauma Absent GI Symptoms None Current % PO Negligible Interpretation of Weight Loss (severe) >2% in 1 week Muscle Mass Mild Depletion (non-severe) #2 Nutrition Diagnosis Malnutrition Diagnosis Progress(for reassessment Continues documentation) #1 Diagnosis Progress(for reassessment Continues documentation) Is patient on ventilator? No Is Patient Ambulatory and/or Out of Bed No REE-([facility]-confined to bed) 1305.120 Kcal/Kg value to use for calculation 38 Approximate Energy Requirements Using 1775 kcal/Kg Calculation Used for Recommendations Kcal/kg Additional Notes Protein: 60-75g (1.2-1.5g/kg) Fluid: 1 ml/kcal Nutrition Intervention Change Diet Order: Continue TF Nutrition Support: Jevity 1.2 at 60ml/hr Flush 100ml q4h Kcal 1,728 Protein (gm) 80 Fluid (mL) 1,162 Goal #1 TF tolerance Goal #2 Meet at least 80% of energy and protein needs via TF Goal #3 Wt gain/maintenacne Anticipated Discharge Needs: TF Follow-Up By: 03/20/20 Additional Comments F/U for TF tolerance
[2020-03-16] MEDS: GLYCOPYRROLATE 1 MG TAB PO SCH ×3 (10:09→20:42)
[2020-03-16] MEDS: MIRTAZAPINE 30 MG TAB PO SCH (10:09)
[2020-03-16] MEDS: LANSOPRAZOLE 30 MG SOLUTAB FEEDTUBE SCH (10:09)
[2020-03-16] MEDS: NICOTINE 21 MG/24 HR PATCH TD SCH (10:09)
[2020-03-16] MEDS: DOCUSATE SODIUM 100 MG/10 ML ORAL LIQD FEEDTUBE SCH ×2 (10:09→22:30)
[2020-03-16] MEDS: hydrOXYzine PAMOATE 25 MG CAP PO SCH ×2 (10:09→22:30)
[2020-03-16] MEDS: SERTRALINE 50 MG TAB PO SCH (10:10)
[2020-03-16] MEDS: METOPROLOL TARTRATE 25 MG TAB PO SCH ×2 (10:10→22:31)
[2020-03-16] MEDS: QUEtiapine 100 MG TAB FEEDTUBE SCH ×2 (10:11→22:30)
[2020-03-16] MEDS: levETIRAcetam 500 MG/5 ML ORAL LIQD PO SCH ×2 (10:11→22:30)
[2020-03-16] MEDS: ACETYLCYSTEINE 20% 200 MG/1 ML *FOR INHALATION USE INHALATION SCH (13:59)
--- NOTE | 2020-03-16 14:00 | Progress Note ---
Assessment and Plan Acute cardiopulmonary arrest with ROSC Acute hypoxemic respiratory failure on MVS Acute metabolic-toxic encephalopathy Metabolic acidosis/alcoholic acidosis/Lactic acidosis Ischemic hepatitis Leucocytosis with lactic acidosis Tobacco use disorder ALcohol use Disorder Hypokalemia High grade fevers - to begin capping trials as tolerated - continue scopolamine patch - prn mucomyst nebs - advance diet per [employer] - no new issues; continue care as below otherwise - repeat CXR prn at this point - Continue to wean supplemental oxygen for target O2 sat's > 90% - continue bronchodilators with routine trach care and pulmonary hygiene per RT - Slow Seroquel taper - s/p Antibiotics per ID recommendations - prn Reglan for G.I. motility - Continue VTE and Stress ulcer prophylaxis - Continue enteric nutritional support - Monitor glycemic control, with target blood glucose 140-180 mg/dL while critically ill (Avoid hypoglycemia) - ABG and CXR prn - Continue to avoid nephrotoxins, adjust all medications fro GFR and CrCL - Continue to avoid benzodiazepines , as much as possible, to reduce the possibility of delirium - Continue prn analgesia per CPOT score - Continue to maintain of sleep-wake cycle, avoid delirium - PT/OT/ROM exercises- awaiting PT/OT evaluation - Continue mobility protocol and skin assessment per protocol for pressure ulcer prevention - Continue to monitor for clinical seizures - Continue Nicotine withdrawal precautions, alcohol withdrawal precautions - continue other care per attending / other consultants - continue discharge planning ..... re-evaluate in am & prn CONDITION: STABLE PROGNOSIS: IMPROVED CODE STATUS: FULL CODE Subjective Date of service: 03/16/20 Principal diagnosis: Ac cardiopulmonary arrest; Ac hypoxemic resp failure; Acute encephalopathy Interval history: Patient is seen today for: Acute cardiopulmonary arrest with ROSC; Acute hy poxemic respiratory failure; Acute metabolic-toxic encephalopathy; Ischemic hepatitis; Leucocytosis with lactic acidosis; Tobacco use disorder; Alcohol use Disorder; Hypokalemia; High grade fevers Seen and examined at bedside; 24hour events reviewed; nursing and respiratory care staff consulted; no adverse overnight events reported to me; resting peacefully in bed; remains delirious; no N/V/F/C Objective Vital Signs - 12hr 03/16/20 03/16/20 03/16/20 05:00 05:46 07:53 Temperature 97.4 F L 97.7 F Pulse Rate 82 94 H Pulse Rate [ Anterior Bilateral Throughout] Pulse Rate [ Apical] Pulse Rate [ From Monitor] Respiratory 20 18 Rate Respiratory Rate [Anterior Bilateral Throughout] Blood Pressure 137/82 118/81 O2 Sat by Pulse 100 100 Oximetry O2 Sat by Pulse 98 Oximetry [ Assessment] 03/16/20 03/16/20 03/16/20 08:00 09:48 10:00 Temperature Pulse Rate 85 Pulse Rate [ 94 H Anterior Bilateral Throughout] Pulse Rate [ 78 Apical] Pulse Rate [ 78 From Monitor] Respiratory 16 Rate Respiratory 18 Rate [Anterior Bilateral Throughout] Blood Pressure O2 Sat by Pulse 98 100 Oximetry O2 Sat by Pulse Oximetry [ Assessment] 03/16/20 10:10 Temperature Pulse Rate 87 Pulse Rate [ Anterior Bilateral Throughout] Pulse Rate [ Apical] Pulse Rate [ From Monitor] Respiratory Rate Respiratory Rate [Anterior Bilateral Throughout] Blood Pressure 110/74 O2 Sat by Pulse Oximetry O2 Sat by Pulse Oximetry [ Assessment] Constitutional: no acute distress, other (cachectic 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, with midline tracheostomy and with normal respiratory effort at rest) Eyes: non-icteric ENT: oropharynx moist, other (s/p trach) Neck: supple, no lymphadenopathy, no JVD Effort: normal Ascultation: Bilateral: diminished breath sounds, rhonchi Percussion: Bilateral: not dull Cardiovascular: regular rate and rhythm (tachycardia), other (S1,S2) Gastrointestinal: normoactive bowel sounds, soft, non-tender, non-distended Integumentary: normal Extremities: no cyanosis, no edema, pulses normal, no ischemia or petechiae Neurologic: normal mental status, non-focal exam, pupils equal and round, CN II- XII normal, motor strength normal and Psychiatric: anxious CBC and BMP: 03/25/20 04:28 03/25/20 04:28 ABG, PT/INR, D-dimer: ABG ABG pH 7.433 pH Units (7.350-7.450) 03/08/20 13:25 ABG pCO2 40.2 mm Hg 03/08/20 13:25 ABG pO2 71.1 mm Hg (80.0-90.0) L 03/08/20 13:25 ABG O2 Saturation 97.0 % (95.0-99.0) 03/08/20 13:25 PT/INR, D-dimer PT 17.0 Sec. (12.2-14.9) H 11/23/19 03:47 INR 1.36 (0.87-1.13) H 11/23/19 03:47 Abnormal lab findings: Abnormal Labs 11/22/19 11/22/19 11/22/19 23:17 23:18 23:27 WBC 21.2 H RBC 3.59 L Hgb 9.8 L Hct MCH 27 L RDW 18.6 H Plt Count 454 H Lymph % (Auto) Burnett % (Auto) Burnett # Baso # Seg Neutrophils % Seg Neuts % (Manual) 86.0 H Lymphocytes % (Manual) 9.0 L Monocytes % (Manual) Seg Neutrophils # Seg Neutrophils # Man 18.2 H Lymphocytes # (Manual) Monocytes # (Manual) 1.1 H Eosinophils # (Manual) Basophils # (Manual) PT INR APTT ABG pH ABG pO2 ABG HCO3 ABG O2 Saturation ABG Base Excess ABG Hemoglobin Oxyhemoglobin Sodium Potassium Chloride Carbon Dioxide BUN Creatinine Glucose POC Glucose 53 L Lactic Acid Calcium Ionized Calcium Phosphorus Magnesium Total Bilirubin AST ALT Alkaline Phosphatase Ammonia Total Creatine Kinase CK-MB (CK-2) CK-MB (CK-2) Rel Index Total Protein Albumin Urine WBC (Auto) 40.0 H Vancomycin Trough Salicylates Acetaminophen Plasma/Serum Alcohol Crossmatch 11/22/19 11/22/19 11/22/19 23:27 23:27 23:27 WBC RBC Hgb Hct MCH RDW Plt Count Lymph % (Auto) Burnett % (Auto) Burnett # Baso # Seg Neutrophils % Seg Neuts % (Manual) Lymphocytes % (Manual) Monocytes % (Manual) Seg Neutrophils # Seg Neutrophils # Man Lymphocytes # (Manual) Monocytes # (Manual) Eosinophils # (Manual) Basophils # (Manual) PT INR APTT ABG pH ABG pO2 ABG HCO3 ABG O2 Saturation ABG Base Excess ABG Hemoglobin Oxyhemoglobin Sodium Potassium 2.4 L* Chloride 85.1 L Carbon Dioxide 19 L BUN Creatinine 0.5 L Glucose 261 H POC Glucose Lactic Acid Calcium Ionized Calcium Phosphorus Magnesium Total Bilirubin AST 609 H ALT 152 H Alkaline Phosphatase 160 H Ammonia 117.0 H Total Creatine Kinase 139 H CK-MB (CK-2) 8.3 H CK-MB (CK-2) Rel Index 5.9 H Total Protein Albumin 3.6 L Urine WBC (Auto) Vancomycin Trough Salicylates < 0.3 L Acetaminophen Plasma/Serum Alcohol Crossmatch 11/22/19 11/22/19 11/23/19 23:27 23:27 01:10 WBC RBC Hgb Hct MCH RDW Plt Count Lymph % (Auto) Burnett % (Auto) Burnett # Baso # Seg Neutrophils % Seg Neuts % (Manual) Lymphocytes % (Manual) Monocytes % (Manual) Seg Neutrophils # Seg Neutrophils # Man Lymphocytes # (Manual) Monocytes # (Manual) Eosinophils # (Manual) Basophils # (Manual) PT INR APTT ABG pH 7.273 L ABG pO2 209.7 H ABG HCO3 ABG O2 Saturation 99.2 H ABG Base Excess -3.9 L ABG Hemoglobin 10.6 L Oxyhemoglobin 93.9 L Sodium Potassium Chloride Carbon Dioxide BUN Creatinine Glucose POC Glucose Lactic Acid Calcium Ionized Calcium Phosphorus Magnesium Total Bilirubin AST ALT Alkaline Phosphatase Ammonia Total Creatine Kinase CK-MB (CK-2) CK-MB (CK-2) Rel Index Total Protein Albumin Urine WBC (Auto) Vancomycin Trough Salicylates Acetaminophen < 5.0 L Plasma/Serum Alcohol 0.08 H Crossmatch 11/23/19 11/23/19 11/23/19 01:19 01:19 03:47 WBC RBC Hgb Hct MCH RDW Plt Count Lymph % (Auto) Burnett % (Auto) Burnett # Baso # Seg Neutrophils % Seg Neuts % (Manual) Lymphocytes % (Manual) Monocytes % (Manual) Seg Neutrophils # Seg Neutrophils # Man Lymphocytes # (Manual) Monocytes # (Manual) Eosinophils # (Manual) Basophils # (Manual) PT 16.3 H INR 1.29 H APTT ABG pH ABG pO2 ABG HCO3 ABG O2 Saturation ABG Base Excess ABG Hemoglobin Oxyhemoglobin Sodium Potassium Chloride Carbon Dioxide BUN Creatinine Glucose POC Glucose Lactic Acid 2.10 H* 5.00 H* Calcium Ionized Calcium Phosphorus Magnesium Total Bilirubin AST ALT Alkaline Phosphatase Ammonia Total Creatine Kinase CK-MB (CK-2) CK-MB (CK-2) Rel Index Total Protein Albumin Urine WBC (Auto) Vancomycin Trough Salicylates Acetaminophen Plasma/Serum Alcohol Crossmatch 11/23/19 11/23/19 11/23/19 03:47 03:47 04:53 WBC RBC Hgb 9.4 L Hct MCH RDW Plt Count Lymph % (Auto) Burnett % (Auto) Burnett # Baso # Seg Neutrophils % Seg Neuts % (Manual) Lymphocytes % (Manual) Monocytes % (Manual) Seg Neutrophils # Seg Neutrophils # Man Lymphocytes # (Manual) Monocytes # (Manual) Eosinophils # (Manual) Basophils # (Manual) PT 17.0 H INR 1.36 H APTT 128.2 H* ABG pH ABG pO2 ABG HCO3 ABG O2 Saturation ABG Base Excess ABG Hemoglobin Oxyhemoglobin Sodium Potassium Chloride Carbon Dioxide 18 L BUN Creatinine 0.5 L Glucose 105 H POC Glucose Lactic Acid Calcium 8.3 L Ionized Calcium Phosphorus 2.40 L Magnesium Total Bilirubin 1.30 H AST 761 H ALT 158 H Alkaline Phosphatase 143 H Ammonia Total Creatine Kinase CK-MB (CK-2) CK-MB (CK-2) Rel Index Total Protein Albumin 2.8 L Urine WBC (Auto) Vancomycin Trough Salicylates Acetaminophen Plasma/Serum Alcohol Crossmatch 11/23/19 11/23/19 11/23/19 05:12 06:32 06:32 WBC 16.8 H RBC 3.31 L Hgb 8.9 L Hct 28.7 L MCH 27 L RDW 18.6 H Plt Count Lymph % (Auto) Burnett % (Auto) Burnett # Baso # Seg Neutrophils % Seg Neuts % (Manual) 94.0 H Lymphocytes % (Manual) 1.0 L Monocytes % (Manual) Seg Neutrophils # Seg Neutrophils # Man 15.8 H Lymphocytes # (Manual) 0.2 L Monocytes # (Manual) Eosinophils # (Manual) Basophils # (Manual) PT INR APTT ABG pH ABG pO2 ABG HCO3 ABG O2 Saturation ABG Base Excess -3.2 L ABG Hemoglobin 9.0 L Oxyhemoglobin 93.6 L Sodium Potassium Chloride Carbon Dioxide BUN Creatinine Glucose POC Glucose Lactic Acid Calcium Ionized Calcium 4.5 L Phosphorus Magnesium Total Bilirubin AST ALT Alkaline Phosphatase Ammonia Total Creatine Kinase CK-MB (CK-2) CK-MB (CK-2) Rel Index Total Protein Albumin Urine WBC (Auto) Vancomycin Trough Salicylates Acetaminophen Plasma/Serum Alcohol Crossmatch 11/23/19 11/24/19 11/24/19 06:32 04:35 04:35 WBC RBC Hgb Hct MCH RDW Plt Count Lymph % (Auto) Burnett % (Auto) Burnett # Baso # Seg Neutrophils % Seg Neuts % (Manual) Lymphocytes % (Manual) Monocytes % (Manual) Seg Neutrophils # Seg Neutrophils # Man Lymphocytes # (Manual) Monocytes # (Manual) Eosinophils # (Manual) Basophils # (Manual) PT INR APTT ABG pH ABG pO2 ABG HCO3 ABG O2 Saturation ABG Base Excess ABG Hemoglobin Oxyhemoglobin Sodium Potassium Chloride Carbon Dioxide BUN Creatinine Glucose POC Glucose Lactic Acid 3.30 H* Calcium Ionized Calcium Phosphorus Magnesium 1.40 L Total Bilirubin AST ALT Alkaline Phosphatase Ammonia 98.0 H Total Creatine Kinase CK-MB (CK-2) CK-MB (CK-2) Rel Index Total Protein Albumin Urine WBC (Auto) Vancomycin Trough Salicylates Acetaminophen Plasma/Serum Alcohol Crossmatch 11/24/19 11/25/19 11/25/19 05:22 04:34 05:05 WBC 17.3 H RBC 2.88 L Hgb 7.8 L Hct 24.6 L MCH 27 L RDW 18.5 H Plt Count Lymph % (Auto) 7.7 L Burnett % (Auto) 9.7 H Burnett # 1.7 H Baso # Seg Neutrophils % 82.2 H Seg Neuts % (Manual) Lymphocytes % (Manual) Monocytes % (Manual) Seg Neutrophils # 14.2 H Seg Neutrophils # Man Lymphocytes # (Manual) Monocytes # (Manual) Eosinophils # (Manual) Basophils # (Manual) PT INR APTT ABG pH 7.475 H ABG pO2 ABG HCO3 29.4 H 32.3 H ABG O2 Saturation ABG Base Excess 5.4 H 6.9 H ABG Hemoglobin 9.0 L 10.6 L Oxyhemoglobin 94.3 L Sodium Potassium Chloride Carbon Dioxide BUN Creatinine Glucose POC Glucose Lactic Acid Calcium Ionized Calcium Phosphorus Magnesium Total Bilirubin AST ALT Alkaline Phosphatase Ammonia Total Creatine Kinase CK-MB (CK-2) CK-MB (CK-2) Rel Index Total Protein Albumin Urine WBC (Auto) Vancomycin Trough Salicylates Acetaminophen Plasma/Serum Alcohol Crossmatch 11/25/19 11/25/19 11/26/19 05:05 22:46 03:31 WBC RBC Hgb Hct MCH RDW Plt Count Lymph % (Auto) Burnett % (Auto) Burnett # Baso # Seg Neutrophils % Seg Neuts % (Manual) Lymphocytes % (Manual) Monocytes % (Manual) Seg Neutrophils # Seg Neutrophils # Man Lymphocytes # (Manual) Monocytes # (Manual) Eosinophils # (Manual) Basophils # (Manual) PT INR APTT ABG pH 7.459 H ABG pO2 ABG HCO3 34.2 H ABG O2 Saturation ABG Base Excess 9.4 H ABG Hemoglobin 7.6 L Oxyhemoglobin 94.8 L Sodium 152 H D 147 H Potassium 2.3 L* D 2.8 L* D Chloride 107.8 H Carbon Dioxide 31 H D 33 H BUN Creatinine 0.6 L 0.6 L Glucose 148 H 177 H POC Glucose Lactic Acid Calcium Ionized Calcium Phosphorus Magnesium Total Bilirubin AST 105 H ALT 71 H Alkaline Phosphatase 155 H Ammonia Total Creatine Kinase CK-MB (CK-2) CK-MB (CK-2) Rel Index Total Protein 5.2 L D Albumin 2.9 L Urine WBC (Auto) Vancomycin Trough Salicylates Acetaminophen Plasma/Serum Alcohol Crossmatch 11/26/19 11/26/19 11/27/19 08:24 08:24 04:20 WBC 12.0 H RBC 3.00 L Hgb 8.0 L 9.3 L Hct 25.9 L 29.7 L MCH 27 L RDW 18.5 H Plt Count Lymph % (Auto) Burnett % (Auto) Burnett # Baso # Seg Neutrophils % Seg Neuts % (Manual) 89.0 H Lymphocytes % (Manual) 4.0 L Monocytes % (Manual) Seg Neutrophils # Seg Neutrophils # Man 10.7 H Lymphocytes # (Manual) 0.5 L Monocytes # (Manual) Eosinophils # (Manual) Basophils # (Manual) PT INR APTT ABG pH ABG pO2 ABG HCO3 ABG O2 Saturation ABG Base Excess ABG Hemoglobin Oxyhemoglobin Sodium 146 H Potassium 3.4 L D Chloride Carbon Dioxide BUN Creatinine 0.5 L Glucose 165 H POC Glucose Lactic Acid Calcium Ionized Calcium Phosphorus Magnesium Total Bilirubin AST 57 H ALT Alkaline Phosphatase 166 H Ammonia Total Creatine Kinase CK-MB (CK-2) CK-MB (CK-2) Rel Index Total Protein Albumin 2.9 L Urine WBC (Auto) Vancomycin Trough Salicylates Acetaminophen Plasma/Serum Alcohol Crossmatch 11/27/19 11/27/19 11/27/19 04:28 04:28 04:42 WBC RBC Hgb Hct MCH RDW Plt Count Lymph % (Auto) Burnett % (Auto) Burnett # Baso # Seg Neutrophils % Seg Neuts % (Manual) Lymphocytes % (Manual) Monocytes % (Manual) Seg Neutrophils # Seg Neutrophils # Man Lymphocytes # (Manual) Monocytes # (Manual) Eosinophils # (Manual) Basophils # (Manual) PT INR APTT ABG pH 7.470 H ABG pO2 74.0 L ABG HCO3 33.8 H ABG O2 Saturation ABG Base Excess 9.1 H ABG Hemoglobin 8.7 L Oxyhemoglobin 94.7 L Sodium 146 H Potassium 2.9 L* Chloride Carbon Dioxide BUN 25 H Creatinine Glucose 213 H POC Glucose Lactic Acid Calcium Ionized Calcium Phosphorus 1.00 L Magnesium Total Bilirubin AST ALT Alkaline Phosphatase Ammonia Total Creatine Kinase CK-MB (CK-2) CK-MB (CK-2) Rel Index Total Protein Albumin Urine WBC (Auto) Vancomycin Trough Salicylates Acetaminophen Plasma/Serum Alcohol Crossmatch 11/27/19 11/27/19 11/27/19 05:37 12:20 15:46 WBC RBC Hgb Hct MCH RDW Plt Count Lymph % (Auto) Burnett % (Auto) Burnett # Baso # Seg Neutrophils % Seg Neuts % (Manual) Lymphocytes % (Manual) Monocytes % (Manual) Seg Neutrophils # Seg Neutrophils # Man Lymphocytes # (Manual) Monocytes # (Manual) Eosinophils # (Manual) Basophils # (Manual) PT INR APTT ABG pH ABG pO2 ABG HCO3 ABG O2 Saturation ABG Base Excess ABG Hemoglobin Oxyhemoglobin Sodium 146 H Potassium 3.5 L D Chloride Carbon Dioxide BUN 24 H Creatinine 0.6 L Glucose 187 H POC Glucose 117 H 220 H Lactic Acid Calcium Ionized Calcium Phosphorus Magnesium Total Bilirubin AST ALT Alkaline Phosphatase Ammonia Total Creatine Kinase CK-MB (CK-2) CK-MB (CK-2) Rel Index Total Protein Albumin Urine WBC (Auto) Vancomycin Trough Salicylates Acetaminophen Plasma/Serum Alcohol Crossmatch 11/27/19 11/28/19 11/28/19 17:28 05:00 05:02 WBC RBC Hgb Hct MCH RDW Plt Count Lymph % (Auto) Burnett % (Auto) Burnett # Baso # Seg Neutrophils % Seg Neuts % (Manual) Lymphocytes % (Manual) Monocytes % (Manual) Seg Neutrophils # Seg Neutrophils # Man Lymphocytes # (Manual) Monocytes # (Manual) Eosinophils # (Manual) Basophils # (Manual) PT INR APTT ABG pH ABG pO2 72.4 L ABG HCO3 33.6 H ABG O2 Saturation 94.1 L ABG Base Excess 7.3 H ABG Hemoglobin Oxyhemoglobin 91.8 L Sodium 146 H Potassium 3.3 L Chloride Carbon Dioxide BUN 25 H Creatinine 0.6 L Glucose 176 H POC Glucose 198 H Lactic Acid Calcium Ionized Calcium Phosphorus Magnesium Total Bilirubin AST ALT Alkaline Phosphatase Ammonia Total Creatine Kinase CK-MB (CK-2) CK-MB (CK-2) Rel Index Total Protein Albumin Urine WBC (Auto) Vancomycin Trough Salicylates Acetaminophen Plasma/Serum Alcohol Crossmatch 11/28/19 11/28/19 11/29/19 05:02 18:55 10:43 WBC 15.2 H 19.0 H RBC 3.06 L 3.01 L Hgb 8.3 L 8.3 L Hct 27.0 L 26.4 L MCH 27 L RDW 19.0 H 19.7 H Plt Count 479 H 611 H Lymph % (Auto) Burnett % (Auto) Burnett # Baso # Seg Neutrophils % Seg Neuts % (Manual) 92.0 H Lymphocytes % (Manual) 2.0 L Monocytes % (Manual) Seg Neutrophils # Seg Neutrophils # Man 14.0 H Lymphocytes # (Manual) 0.3 L Monocytes # (Manual) Eosinophils # (Manual) Basophils # (Manual) PT INR APTT ABG pH ABG pO2 ABG HCO3 ABG O2 Saturation ABG Base Excess ABG Hemoglobin Oxyhemoglobin Sodium Potassium Chloride Carbon Dioxide BUN Creatinine Glucose POC Glucose 138 H Lactic Acid Calcium Ionized Calcium Phosphorus Magnesium Total Bilirubin AST ALT Alkaline Phosphatase Ammonia Total Creatine Kinase CK-MB (CK-2) CK-MB (CK-2) Rel Index Total Protein Albumin Urine WBC (Auto) Vancomycin Trough Salicylates Acetaminophen Plasma/Serum Alcohol Crossmatch 11/29/19 11/29/19 11/29/19 10:43 12:27 19:25 WBC RBC Hgb Hct MCH RDW Plt Count Lymph % (Auto) Burnett % (Auto) Burnett # Baso # Seg Neutrophils % Seg Neuts % (Manual) Lymphocytes % (Manual) Monocytes % (Manual) Seg Neutrophils # Seg Neutrophils # Man Lymphocytes # (Manual) Monocytes # (Manual) Eosinophils # (Manual) Basophils # (Manual) PT INR APTT ABG pH ABG pO2 ABG HCO3 ABG O2 Saturation ABG Base Excess ABG Hemoglobin Oxyhemoglobin Sodium Potassium 2.8 L* Chloride Carbon Dioxide BUN 20 H Creatinine 0.5 L Glucose 121 H POC Glucose 128 H 120 H Lactic Acid Calcium Ionized Calcium Phosphorus Magnesium Total Bilirubin AST ALT Alkaline Phosphatase Ammonia Total Creatine Kinase CK-MB (CK-2) CK-MB (CK-2) Rel Index Total Protein Albumin Urine WBC (Auto) Vancomycin Trough Salicylates Acetaminophen Plasma/Serum Alcohol Crossmatch 11/29/19 11/30/19 11/30/19 23:46 04:10 05:02 WBC RBC Hgb Hct MCH RDW Plt Count Lymph % (Auto) Burnett % (Auto) Burnett # Baso # Seg Neutrophils % Seg Neuts % (Manual) Lymphocytes % (Manual) Monocytes % (Manual) Seg Neutrophils # Seg Neutrophils # Man Lymphocytes # (Manual) Monocytes # (Manual) Eosinophils # (Manual) Basophils # (Manual) PT INR APTT ABG pH ABG pO2 76.3 L ABG HCO3 32.5 H ABG O2 Saturation ABG Base Excess 6.9 H ABG Hemoglobin 8.0 L Oxyhemoglobin 92.6 L Sodium Potassium Chloride Carbon Dioxide BUN Creatinine Glucose POC Glucose 116 H 128 H Lactic Acid Calcium Ionized Calcium Phosphorus Magnesium Total Bilirubin AST ALT Alkaline Phosphatase Ammonia Total Creatine Kinase CK-MB (CK-2) CK-MB (CK-2) Rel Index Total Protein Albumin Urine WBC (Auto) Vancomycin Trough Salicylates Acetaminophen Plasma/Serum Alcohol Crossmatch 11/30/19 11/30/19 11/30/19 05:25 05:25 12:59 WBC 18.4 H RBC 3.10 L Hgb 8.5 L Hct 27.5 L MCH 27 L RDW 20.9 H Plt Count 691 H Lymph % (Auto) 7.1 L Burnett % (Auto) 7.7 H Burnett # 1.4 H Baso # Seg Neutrophils % 83.4 H Seg Neuts % (Manual) Lymphocytes % (Manual) Monocytes % (Manual) Seg Neutrophils # 15.4 H Seg Neutrophils # Man Lymphocytes # (Manual) Monocytes # (Manual) Eosinophils # (Manual) Basophils # (Manual) PT INR APTT ABG pH ABG pO2 ABG HCO3 ABG O2 Saturation ABG Base Excess ABG Hemoglobin Oxyhemoglobin Sodium 146 H Potassium Chloride 107.2 H Carbon Dioxide BUN Creatinine 0.5 L Glucose 132 H POC Glucose 124 H Lactic Acid Calcium Ionized Calcium Phosphorus Magnesium Total Bilirubin AST 246 H ALT 274 H Alkaline Phosphatase 203 H Ammonia Total Creatine Kinase CK-MB (CK-2) CK-MB (CK-2) Rel Index Total Protein 5.4 L Albumin 2.9 L Urine WBC (Auto) Vancomycin Trough Salicylates Acetaminophen Plasma/Serum Alcohol Crossmatch 11/30/19 12/01/19 12/01/19 17:53 00:05 05:10 WBC RBC Hgb Hct MCH RDW Plt Count Lymph % (Auto) Burnett % (Auto) Burnett # Baso # Seg Neutrophils % Seg Neuts % (Manual) Lymphocytes % (Manual) Monocytes % (Manual) Seg Neutrophils # Seg Neutrophils # Man Lymphocytes # (Manual) Monocytes # (Manual) Eosinophils # (Manual) Basophils # (Manual) PT INR APTT ABG pH ABG pO2 ABG HCO3 ABG O2 Saturation ABG Base Excess ABG Hemoglobin Oxyhemoglobin Sodium Potassium Chloride Carbon Dioxide BUN Creatinine Glucose POC Glucose 113 H 143 H 145 H Lactic Acid Calcium Ionized Calcium Phosphorus Magnesium Total Bilirubin AST ALT Alkaline Phosphatase Ammonia Total Creatine Kinase CK-MB (CK-2) CK-MB (CK-2) Rel Index Total Protein Albumin Urine WBC (Auto) Vancomycin Trough Salicylates Acetaminophen Plasma/Serum Alcohol Crossmatch 12/01/19 12/01/19 12/01/19 05:33 08:23 08:23 WBC 22.7 H RBC 2.88 L Hgb 7.9 L Hct 25.2 L MCH 27 L RDW 21.0 H Plt Count 732 H Lymph % (Auto) Burnett % (Auto) [place] # Baso # Seg Neutrophils % Seg Neuts % (Manual) 91.0 H Lymphocytes % (Manual) 3.0 L Monocytes % (Manual) Seg Neutrophils # Seg Neutrophils # Man 20.7 H Lymphocytes # (Manual) 0.7 L Monocytes # (Manual) 1.1 H Eosinophils # (Manual) Basophils # (Manual) PT INR APTT ABG pH ABG pO2 68.6 L ABG HCO3 34.1 H ABG O2 Saturation ABG Base Excess 9.0 H ABG Hemoglobin 6.5 L Oxyhemoglobin 94.7 L Sodium Potassium Chloride Carbon Dioxide BUN Creatinine 0.5 L Glucose 125 H POC Glucose Lactic Acid Calcium Ionized Calcium Phosphorus Magnesium Total Bilirubin AST ALT Alkaline Phosphatase Ammonia Total Creatine Kinase CK-MB (CK-2) CK-MB (CK-2) Rel Index Total Protein Albumin Urine WBC (Auto) Vancomycin Trough Salicylates Acetaminophen Plasma/Serum Alcohol Crossmatch 12/01/19 12/01/19 12/01/19 13:21 17:54 20:59 WBC RBC Hgb Hct MCH RDW Plt Count Lymph % (Auto) Burnett % (Auto) [place]ett # Baso # Seg Neutrophils % Seg Neuts % (Manual) Lymphocytes % (Manual) Monocytes % (Manual) Seg Neutrophils # Seg Neutrophils # Man Lymphocytes # (Manual) Monocytes # (Manual) Eosinophils # (Manual) Basophils # (Manual) PT INR APTT ABG pH ABG pO2 78.3 L ABG HCO3 33.8 H ABG O2 Saturation 94.9 L ABG Base Excess 7.9 H ABG Hemoglobin 11.5 L Oxyhemoglobin 92.3 L Sodium Potassium Chloride Carbon Dioxide BUN Creatinine Glucose POC Glucose 111 H 115 H Lactic Acid Calcium Ionized Calcium Phosphorus Magnesium Total Bilirubin AST ALT Alkaline Phosphatase Ammonia Total Creatine Kinase CK-MB (CK-2) CK-MB (CK-2) Rel Index Total Protein Albumin Urine WBC (Auto) Vancomycin Trough Salicylates Acetaminophen Plasma/Serum Alcohol Crossmatch 12/02/19 12/03/19 12/04/19 12:55 20:00 04:26 WBC 15.2 H RBC 2.69 L Hgb 7.4 L Hct 23.6 L MCH 27 L RDW 19.9 H Plt Count 838 H Lymph % (Auto) Burnett % (Auto) Burnett # Baso # Seg Neutrophils % Seg Neuts % (Manual) Lymphocytes % (Manual) Monocytes % (Manual) Seg Neutrophils # Seg Neutrophils # Man Lymphocytes # (Manual) Monocytes # (Manual) Eosinophils # (Manual) Basophils # (Manual) PT INR APTT ABG pH ABG pO2 68.3 L ABG HCO3 33.5 H ABG O2 Saturation 93.5 L ABG Base Excess 8.4 H ABG Hemoglobin 7.3 L Oxyhemoglobin 90.9 L Sodium Potassium Chloride Carbon Dioxide BUN Creatinine Glucose POC Glucose 107 H Lactic Acid Calcium Ionized Calcium Phosphorus Magnesium Total Bilirubin AST ALT Alkaline Phosphatase Ammonia Total Creatine Kinase CK-MB (CK-2) CK-MB (CK-2) Rel Index Total Protein Albumin Urine WBC (Auto) Vancomycin Trough Salicylates Acetaminophen Plasma/Serum Alcohol Crossmatch 12/04/19 12/04/19 12/04/19 04:26 07:45 12:02 WBC 15.9 H RBC 2.88 L Hgb 7.9 L Hct 25.1 L MCH RDW 20.4 H Plt Count 839 H Lymph % (Auto) 11.3 L Burnett % (Auto) 15.2 H Burnett # 2.4 H Baso # Seg Neutrophils % 72.4 H Seg Neuts % (Manual) Lymphocytes % (Manual) Monocytes % (Manual) Seg Neutrophils # 11.5 H Seg Neutrophils # Man Lymphocytes # (Manual) Monocytes # (Manual) Eosinophils # (Manual) Basophils # (Manual) PT INR APTT ABG pH ABG pO2 ABG HCO3 ABG O2 Saturation ABG Base Excess ABG Hemoglobin Oxyhemoglobin Sodium Potassium Chloride 96.5 L Carbon Dioxide BUN 21 H Creatinine 0.6 L Glucose 107 H POC Glucose 138 H Lactic Acid Calcium Ionized Calcium Phosphorus Magnesium Total Bilirubin AST ALT Alkaline Phosphatase Ammonia Total Creatine Kinase CK-MB (CK-2) CK-MB (CK-2) Rel Index Total Protein Albumin Urine WBC (Auto) Vancomycin Trough Salicylates Acetaminophen Plasma/Serum Alcohol Crossmatch 12/04/19 12/05/19 12/05/19 18:16 11:55 18:36 WBC RBC Hgb Hct MCH RDW Plt Count Lymph % (Auto) Burnett % (Auto) Burnett # Baso # Seg Neutrophils % Seg Neuts % (Manual) Lymphocytes % (Manual) Monocytes % (Manual) Seg Neutrophils # Seg Neutrophils # Man Lymphocytes # (Manual) Monocytes # (Manual) Eosinophils # (Manual) Basophils # (Manual) PT INR APTT ABG pH ABG pO2 ABG HCO3 ABG O2 Saturation ABG Base Excess ABG Hemoglobin Oxyhemoglobin Sodium Potassium Chloride Carbon Dioxide BUN Creatinine Glucose POC Glucose 135 H 125 H 135 H Lactic Acid Calcium Ionized Calcium Phosphorus Magnesium Total Bilirubin AST ALT Alkaline Phosphatase Ammonia Total Creatine Kinase CK-MB (CK-2) CK-MB (CK-2) Rel Index Total Protein Albumin Urine WBC (Auto) Vancomycin Trough Salicylates Acetaminophen Plasma/Serum Alcohol Crossmatch 12/05/19 12/06/19 12/06/19 23:30 04:14 05:43 WBC RBC Hgb Hct MCH RDW Plt Count Lymph % (Auto) [place] % (Auto) [place] # Baso # Seg Neutrophils % Seg Neuts % (Manual) Lymphocytes % (Manual) Monocytes % (Manual) Seg Neutrophils # Seg Neutrophils # Man Lymphocytes # (Manual) Monocytes # (Manual) Eosinophils # (Manual) Basophils # (Manual) PT INR APTT ABG pH ABG pO2 ABG HCO3 ABG O2 Saturation ABG Base Excess ABG Hemoglobin Oxyhemoglobin Sodium Potassium 5.6 H Chloride 95.0 L Carbon Dioxide BUN 48 H Creatinine 1.3 H D Glucose POC Glucose 126 H 121 H Lactic Acid Calcium Ionized Calcium Phosphorus Magnesium Total Bilirubin AST 89 H ALT 98 H Alkaline Phosphatase 476 H Ammonia Total Creatine Kinase CK-MB (CK-2) CK-MB (CK-2) Rel Index Total Protein Albumin 2.8 L Urine WBC (Auto) Vancomycin Trough Salicylates Acetaminophen Plasma/Serum Alcohol Crossmatch 12/06/19 12/06/19 12/07/19 10:39 14:34 00:19 WBC 17.3 H RBC 2.60 L Hgb 7.1 L Hct 22.7 L MCH 27 L RDW 20.1 H Plt Count 832 H Lymph % (Auto) [place] % (Auto) [place] # Baso # Seg Neutrophils % Seg Neuts % (Manual) Lymphocytes % (Manual) Monocytes % (Manual) Seg Neutrophils # Seg Neutrophils # Man Lymphocytes # (Manual) Monocytes # (Manual) Eosinophils # (Manual) Basophils # (Manual) PT INR APTT ABG pH ABG pO2 ABG HCO3 ABG O2 Saturation ABG Base Excess ABG Hemoglobin Oxyhemoglobin Sodium Potassium Chloride Carbon Dioxide BUN Creatinine Glucose POC Glucose 128 H 136 H Lactic Acid Calcium Ionized Calcium Phosphorus Magnesium Total Bilirubin AST ALT Alkaline Phosphatase Ammonia Total Creatine Kinase CK-MB (CK-2) CK-MB (CK-2) Rel Index Total Protein Albumin Urine WBC (Auto) Vancomycin Trough Salicylates Acetaminophen Plasma/Serum Alcohol Crossmatch 12/07/19 12/07/19 12/07/19 03:44 03:44 05:53 WBC 16.2 H RBC 2.56 L Hgb 7.1 L Hct 22.3 L MCH RDW 19.4 H Plt Count 782 H Lymph % (Auto) [place] % (Auto) [place] # Baso # Seg Neutrophils % Seg Neuts % (Manual) Lymphocytes % (Manual) Monocytes % (Manual) Seg Neutrophils # Seg Neutrophils # Man Lymphocytes # (Manual) Monocytes # (Manual) Eosinophils # (Manual) Basophils # (Manual) PT INR APTT ABG pH ABG pO2 ABG HCO3 ABG O2 Saturation ABG Base Excess ABG Hemoglobin Oxyhemoglobin Sodium Potassium Chloride 95.6 L Carbon Dioxide BUN 56 H Creatinine 1.4 H Glucose 120 H POC Glucose 128 H Lactic Acid Calcium 10.3 H Ionized Calcium Phosphorus Magnesium Total Bilirubin AST ALT Alkaline Phosphatase Ammonia Total Creatine Kinase CK-MB (CK-2) CK-MB (CK-2) Rel Index Total Protein Albumin Urine WBC (Auto) Vancomycin Trough Salicylates Acetaminophen Plasma/Serum Alcohol Crossmatch 12/07/19 12/07/19 12/08/19 12:54 23:47 00:20 WBC RBC Hgb Hct MCH RDW Plt Count Lymph % (Auto) [place] % (Auto) [place] # Baso # Seg Neutrophils % Seg Neuts % (Manual) Lymphocytes % (Manual) Monocytes % (Manual) Seg Neutrophils # Seg Neutrophils # Man Lymphocytes # (Manual) Monocytes # (Manual) Eosinophils # (Manual) Basophils # (Manual) PT INR APTT ABG pH ABG pO2 ABG HCO3 ABG O2 Saturation ABG Base Excess ABG Hemoglobin Oxyhemoglobin Sodium Potassium Chloride Carbon Dioxide BUN Creatinine Glucose POC Glucose 128 H 130 H 124 H Lactic Acid Calcium Ionized Calcium Phosphorus Magnesium Total Bilirubin AST ALT Alkaline Phosphatase Ammonia Total Creatine Kinase CK-MB (CK-2) CK-MB (CK-2) Rel Index Total Protein Albumin Urine WBC (Auto) Vancomycin Trough Salicylates Acetaminophen Plasma/Serum Alcohol Crossmatch 12/08/19 12/08/19 12/08/19 06:38 12:04 18:26 WBC RBC Hgb Hct MCH RDW Plt Count Lymph % (Auto) [place] % (Auto) [place] # Baso # Seg Neutrophils % Seg Neuts % (Manual) Lymphocytes % (Manual) Monocytes % (Manual) Seg Neutrophils # Seg Neutrophils # Man Lymphocytes # (Manual) Monocytes # (Manual) Eosinophils # (Manual) Basophils # (Manual) PT INR APTT ABG pH ABG pO2 ABG HCO3 ABG O2 Saturation ABG Base Excess ABG Hemoglobin Oxyhemoglobin Sodium Potassium Chloride Carbon Dioxide BUN Creatinine Glucose POC Glucose 137 H 129 H 150 H Lactic Acid Calcium Ionized Calcium Phosphorus Magnesium Total Bilirubin AST ALT Alkaline Phosphatase Ammonia Total Creatine Kinase CK-MB (CK-2) CK-MB (CK-2) Rel Index Total Protein Albumin Urine WBC (Auto) Vancomycin Trough Salicylates Acetaminophen Plasma/Serum Alcohol Crossmatch 12/09/19 12/09/19 12/09/19 00:56 05:34 06:13 WBC RBC Hgb Hct MCH RDW Plt Count Lymph % (Auto) [place] % (Auto) [place] # Baso # Seg Neutrophils % Seg Neuts % (Manual) Lymphocytes % (Manual) Monocytes % (Manual) Seg Neutrophils # Seg Neutrophils # Man Lymphocytes # (Manual) Monocytes # (Manual) Eosinophils # (Manual) Basophils # (Manual) PT INR APTT ABG pH ABG pO2 ABG HCO3 ABG O2 Saturation ABG Base Excess ABG Hemoglobin Oxyhemoglobin Sodium 146 H Potassium Chloride Carbon Dioxide BUN 66 H Creatinine 1.9 H Glucose 116 H POC Glucose 130 H 130 H Lactic Acid Calcium Ionized Calcium Phosphorus Magnesium Total Bilirubin AST ALT Alkaline Phosphatase Ammonia Total Creatine Kinase CK-MB (CK-2) CK-MB (CK-2) Rel Index Total Protein Albumin Urine WBC (Auto) Vancomycin Trough Salicylates Acetaminophen Plasma/Serum Alcohol Crossmatch 12/09/19 12/09/19 12/10/19 11:52 17:50 00:14 WBC RBC Hgb Hct MCH RDW Plt Count Lymph % (Auto) [place] % (Auto) [place] # Baso # Seg Neutrophils % Seg Neuts % (Manual) Lymphocytes % (Manual) Monocytes % (Manual) Seg Neutrophils # Seg Neutrophils # Man Lymphocytes # (Manual) Monocytes # (Manual) Eosinophils # (Manual) Basophils # (Manual) PT INR APTT ABG pH ABG pO2 ABG HCO3 ABG O2 Saturation ABG Base Excess ABG Hemoglobin Oxyhemoglobin Sodium Potassium Chloride Carbon Dioxide BUN Creatinine Glucose POC Glucose 135 H 120 H 116 H Lactic Acid Calcium Ionized Calcium Phosphorus Magnesium Total Bilirubin AST ALT Alkaline Phosphatase Ammonia Total Creatine Kinase CK-MB (CK-2) CK-MB (CK-2) Rel Index Total Protein Albumin Urine WBC (Auto) Vancomycin Trough Salicylates Acetaminophen Plasma/Serum Alcohol Crossmatch 12/10/19 12/10/19 12/10/19 05:38 11:38 17:34 WBC RBC Hgb Hct MCH RDW Plt Count Lymph % (Auto) [place] % (Auto) [place] # Baso # Seg Neutrophils % Seg Neuts % (Manual) Lymphocytes % (Manual) Monocytes % (Manual) Seg Neutrophils # Seg Neutrophils # Man Lymphocytes # (Manual) Monocytes # (Manual) Eosinophils # (Manual) Basophils # (Manual) PT INR APTT ABG pH ABG pO2 ABG HCO3 ABG O2 Saturation ABG Base Excess ABG Hemoglobin Oxyhemoglobin Sodium Potassium Chloride Carbon Dioxide BUN Creatinine Glucose POC Glucose 115 H 112 H 130 H Lactic Acid Calcium Ionized Calcium Phosphorus Magnesium Total Bilirubin AST ALT Alkaline Phosphatase Ammonia Total Creatine Kinase CK-MB (CK-2) CK-MB (CK-2) Rel Index Total Protein Albumin Urine WBC (Auto) Vancomycin Trough Salicylates Acetaminophen Plasma/Serum Alcohol Crossmatch 12/11/19 12/11/19 12/11/19 00:20 05:31 12:22 WBC RBC Hgb Hct MCH RDW Plt Count Lymph % (Auto) [place] % (Auto) [place] # Baso # Seg Neutrophils % Seg Neuts % (Manual) Lymphocytes % (Manual) Monocytes % (Manual) Seg Neutrophils # Seg Neutrophils # Man Lymphocytes # (Manual) Monocytes # (Manual) Eosinophils # (Manual) Basophils # (Manual) PT INR APTT ABG pH ABG pO2 ABG HCO3 ABG O2 Saturation ABG Base Excess ABG Hemoglobin Oxyhemoglobin Sodium Potassium Chloride Carbon Dioxide BUN Creatinine Glucose POC Glucose 124 H 132 H 128 H Lactic Acid Calcium Ionized Calcium Phosphorus Magnesium Total Bilirubin AST ALT Alkaline Phosphatase Ammonia Total Creatine Kinase CK-MB (CK-2) CK-MB (CK-2) Rel Index Total Protein Albumin Urine WBC (Auto) Vancomycin Trough Salicylates Acetaminophen Plasma/Serum Alcohol Crossmatch 12/11/19 12/11/19 12/12/19 18:04 23:42 03:51 WBC RBC Hgb Hct MCH RDW Plt Count Lymph % (Auto) [place] % (Auto) [place] # Baso # Seg Neutrophils % Seg Neuts % (Manual) Lymphocytes % (Manual) Monocytes % (Manual) Seg Neutrophils # Seg Neutrophils # Man Lymphocytes # (Manual) Monocytes # (Manual) Eosinophils # (Manual) Basophils # (Manual) PT INR APTT ABG pH ABG pO2 ABG HCO3 ABG O2 Saturation ABG Base Excess ABG Hemoglobin Oxyhemoglobin Sodium 149 H Potassium Chloride Carbon Dioxide 20 L D BUN 77 H Creatinine 2.8 H Glucose POC Glucose 133 H 154 H Lactic Acid Calcium Ionized Calcium Phosphorus Magnesium Total Bilirubin AST ALT Alkaline Phosphatase Ammonia Total Creatine Kinase CK-MB (CK-2) CK-MB (CK-2) Rel Index Total Protein Albumin Urine WBC (Auto) Vancomycin Trough Salicylates Acetaminophen Plasma/Serum Alcohol Crossmatch 12/12/19 12/12/19 12/12/19 05:18 05:26 10:30 WBC 18.0 H RBC 2.51 L Hgb 6.8 L Hct 22.0 L MCH 27 L RDW 19.9 H Plt Count 582 H Lymph % (Auto) [place] % (Auto) [place] # Baso # Seg Neutrophils % Seg Neuts % (Manual) Lymphocytes % (Manual) Monocytes % (Manual) Seg Neutrophils # Seg Neutrophils # Man Lymphocytes # (Manual) Monocytes # (Manual) Eosinophils # (Manual) Basophils # (Manual) PT INR APTT ABG pH ABG pO2 ABG HCO3 ABG O2 Saturation ABG Base Excess ABG Hemoglobin Oxyhemoglobin Sodium Potassium Chloride Carbon Dioxide BUN Creatinine Glucose POC Glucose 135 H Lactic Acid Calcium Ionized Calcium Phosphorus Magnesium Total Bilirubin AST ALT Alkaline Phosphatase Ammonia Total Creatine Kinase CK-MB (CK-2) CK-MB (CK-2) Rel Index Total Protein Albumin Urine WBC (Auto) Vancomycin Trough Salicylates Acetaminophen Plasma/Serum Alcohol Crossmatch See Detail 12/12/19 12/12/19 12/12/19 11:44 18:10 23:21 WBC RBC Hgb Hct MCH RDW Plt Count Lymph % (Auto) [place] % (Auto) [place] # Baso # Seg Neutrophils % Seg Neuts % (Manual) Lymphocytes % (Manual) Monocytes % (Manual) Seg Neutrophils # Seg Neutrophils # Man Lymphocytes # (Manual) Monocytes # (Manual) Eosinophils # (Manual) Basophils # (Manual) PT INR APTT ABG pH ABG pO2 ABG HCO3 ABG O2 Saturation ABG Base Excess ABG Hemoglobin Oxyhemoglobin Sodium Potassium Chloride Carbon Dioxide BUN Creatinine Glucose POC Glucose 108 H 107 H 126 H Lactic Acid Calcium Ionized Calcium Phosphorus Magnesium Total Bilirubin AST ALT Alkaline Phosphatase Ammonia Total Creatine Kinase CK-MB (CK-2) CK-MB (CK-2) Rel Index Total Protein Albumin Urine WBC (Auto) Vancomycin Trough Salicylates Acetaminophen Plasma/Serum Alcohol Crossmatch 12/13/19 12/13/19 12/13/19 05:41 07:48 07:48 WBC 38.3 H RBC 2.37 L Hgb 6.3 L Hct 20.9 L MCH 27 L RDW 20.2 H Plt Count 546 H Lymph % (Auto) [place] % (Auto) [place] # Baso # Seg Neutrophils % Seg Neuts % (Manual) 93.0 H Lymphocytes % (Manual) 1.0 L Monocytes % (Manual) Seg Neutrophils # Seg Neutrophils # Man 35.6 H Lymphocytes # (Manual) 0.4 L Monocytes # (Manual) Eosinophils # (Manual) Basophils # (Manual) 0.4 H PT INR APTT ABG pH ABG pO2 ABG HCO3 ABG O2 Saturation ABG Base Excess ABG Hemoglobin Oxyhemoglobin Sodium 152 H Potassium 3.1 L D Chloride 111.9 H Carbon Dioxide 21 L BUN 53 H Creatinine 1.9 H Glucose 141 H POC Glucose 128 H Lactic Acid Calcium Ionized Calcium Phosphorus Magnesium Total Bilirubin AST ALT Alkaline Phosphatase 316 H Ammonia Total Creatine Kinase CK-MB (CK-2) CK-MB (CK-2) Rel Index Total Protein Albumin 2.4 L Urine WBC (Auto) Vancomycin Trough Salicylates Acetaminophen Plasma/Serum Alcohol Crossmatch 12/13/19 12/13/19 12/14/19 18:17 23:19 05:36 WBC RBC Hgb Hct MCH RDW Plt Count Lymph % (Auto) [place] % (Auto) [place] # Baso # Seg Neutrophils % Seg Neuts % (Manual) Lymphocytes % (Manual) Monocytes % (Manual) Seg Neutrophils # Seg Neutrophils # Man Lymphocytes # (Manual) Monocytes # (Manual) Eosinophils # (Manual) Basophils # (Manual) PT INR APTT ABG pH ABG pO2 ABG HCO3 ABG O2 Saturation ABG Base Excess ABG Hemoglobin Oxyhemoglobin Sodium Potassium Chloride Carbon Dioxide BUN Creatinine Glucose POC Glucose 141 H 158 H 182 H Lactic Acid Calcium Ionized Calcium Phosphorus Magnesium Total Bilirubin AST ALT Alkaline Phosphatase Ammonia Total Creatine Kinase CK-MB (CK-2) CK-MB (CK-2) Rel Index Total Protein Albumin Urine WBC (Auto) Vancomycin Trough Salicylates Acetaminophen Plasma/Serum Alcohol Crossmatch 12/14/19 12/14/19 12/14/19 08:48 08:48 10:31 WBC 33.3 H RBC 2.70 L Hgb 7.9 L 8.0 L Hct 25.3 L 24.0 L MCH RDW 19.2 H Plt Count 476 H Lymph % (Auto) [place] % (Auto) [place] # Baso # Seg Neutrophils % Seg Neuts % (Manual) Lymphocytes % (Manual) Monocytes % (Manual) Seg Neutrophils # Seg Neutrophils # Man Lymphocytes # (Manual) Monocytes # (Manual) Eosinophils # (Manual) Basophils # (Manual) PT INR APTT ABG pH ABG pO2 ABG HCO3 ABG O2 Saturation ABG Base Excess ABG Hemoglobin Oxyhemoglobin Sodium 153 H Potassium 2.5 L* Chloride 114.9 H Carbon Dioxide 20 L BUN 38 H Creatinine 1.4 H Glucose 177 H POC Glucose Lactic Acid Calcium Ionized Calcium Phosphorus Magnesium Total Bilirubin AST ALT Alkaline Phosphatase Ammonia Total Creatine Kinase CK-MB (CK-2) CK-MB (CK-2) Rel Index Total Protein Albumin Urine WBC (Auto) Vancomycin Trough Salicylates Acetaminophen Plasma/Serum Alcohol Crossmatch 12/14/19 12/14/19 12/14/19 12:57 16:15 17:50 WBC RBC Hgb Hct MCH RDW Plt Count Lymph % (Auto) [place] % (Auto) [place] # Baso # Seg Neutrophils % Seg Neuts % (Manual) Lymphocytes % (Manual) Monocytes % (Manual) Seg Neutrophils # Seg Neutrophils # Man Lymphocytes # (Manual) Monocytes # (Manual) Eosinophils # (Manual) Basophils # (Manual) PT INR APTT ABG pH ABG pO2 73.6 L ABG HCO3 ABG O2 Saturation ABG Base Excess ABG Hemoglobin 7.6 L Oxyhemoglobin 94.0 L Sodium Potassium Chloride Carbon Dioxide BUN Creatinine Glucose POC Glucose 174 H 150 H Lactic Acid Calcium Ionized Calcium Phosphorus Magnesium Total Bilirubin AST ALT Alkaline Phosphatase Ammonia Total Creatine Kinase CK-MB (CK-2) CK-MB (CK-2) Rel Index Total Protein Albumin Urine WBC (Auto) Vancomycin Trough Salicylates Acetaminophen Plasma/Serum Alcohol Crossmatch 12/15/19 12/15/19 12/15/19 00:28 05:27 07:23 WBC 30.0 H RBC 3.11 L Hgb 8.6 L Hct 27.7 L MCH RDW 20.0 H Plt Count 473 H Lymph % (Auto) [place] % (Auto) [place] # Baso # Seg Neutrophils % Seg Neuts % (Manual) Lymphocytes % (Manual) Monocytes % (Manual) Seg Neutrophils # Seg Neutrophils # Man Lymphocytes # (Manual) Monocytes # (Manual) Eosinophils # (Manual) Basophils # (Manual) PT INR APTT ABG pH ABG pO2 ABG HCO3 ABG O2 Saturation ABG Base Excess ABG Hemoglobin Oxyhemoglobin Sodium Potassium Chloride Carbon Dioxide BUN Creatinine Glucose POC Glucose 167 H 148 H Lactic Acid Calcium Ionized Calcium Phosphorus Magnesium Total Bilirubin AST ALT Alkaline Phosphatase Ammonia Total Creatine Kinase CK-MB (CK-2) CK-MB (CK-2) Rel Index Total Protein Albumin Urine WBC (Auto) Vancomycin Trough Salicylates Acetaminophen Plasma/Serum Alcohol Crossmatch 12/15/19 12/15/19 12/15/19 07:23 12:21 17:41 WBC RBC Hgb Hct MCH RDW Plt Count Lymph % (Auto) [place] % (Auto) [place] # Baso # Seg Neutrophils % Seg Neuts % (Manual) Lymphocytes % (Manual) Monocytes % (Manual) Seg Neutrophils # Seg Neutrophils # Man Lymphocytes # (Manual) Monocytes # (Manual) Eosinophils # (Manual) Basophils # (Manual) PT INR APTT ABG pH ABG pO2 ABG HCO3 ABG O2 Saturation ABG Base Excess ABG Hemoglobin Oxyhemoglobin Sodium 147 H Potassium 3.5 L D Chloride 111.2 H Carbon Dioxide 19 L BUN 29 H Creatinine Glucose 126 H POC Glucose 154 H 144 H Lactic Acid Calcium Ionized Calcium Phosphorus Magnesium Total Bilirubin AST ALT Alkaline Phosphatase Ammonia Total Creatine Kinase CK-MB (CK-2) CK-MB (CK-2) Rel Index Total Protein Albumin Urine WBC (Auto) Vancomycin Trough Salicylates Acetaminophen Plasma/Serum Alcohol Crossmatch 12/16/19 12/16/19 12/16/19 00:22 05:30 05:44 WBC 30.8 H RBC 2.58 L Hgb 7.1 L Hct 22.7 L MCH RDW 19.6 H Plt Count 451 H Lymph % (Auto) [place] % (Auto) [place] # Baso # Seg Neutrophils % Seg Neuts % (Manual) Lymphocytes % (Manual) Monocytes % (Manual) Seg Neutrophils # Seg Neutrophils # Man Lymphocytes # (Manual) Monocytes # (Manual) Eosinophils # (Manual) Basophils # (Manual) PT INR APTT ABG pH ABG pO2 ABG HCO3 ABG O2 Saturation ABG Base Excess ABG Hemoglobin Oxyhemoglobin Sodium Potassium Chloride Carbon Dioxide BUN Creatinine Glucose POC Glucose 139 H 126 H Lactic Acid Calcium Ionized Calcium Phosphorus Magnesium Total Bilirubin AST ALT Alkaline Phosphatase Ammonia Total Creatine Kinase CK-MB (CK-2) CK-MB (CK-2) Rel Index Total Protein Albumin Urine WBC (Auto) Vancomycin Trough Salicylates Acetaminophen Plasma/Serum Alcohol Crossmatch 12/16/19 12/16/19 12/16/19 05:44 11:48 17:37 WBC RBC Hgb Hct MCH RDW Plt Count Lymph % (Auto) [place] % (Auto) [place] # Baso # Seg Neutrophils % Seg Neuts % (Manual) Lymphocytes % (Manual) Monocytes % (Manual) Seg Neutrophils # Seg Neutrophils # Man Lymphocytes # (Manual) Monocytes # (Manual) Eosinophils # (Manual) Basophils # (Manual) PT INR APTT ABG pH ABG pO2 ABG HCO3 ABG O2 Saturation ABG Base Excess ABG Hemoglobin Oxyhemoglobin Sodium Potassium 3.4 L Chloride 109.2 H Carbon Dioxide 19 L BUN 27 H Creatinine Glucose 124 H POC Glucose 125 H 148 H Lactic Acid Calcium Ionized Calcium Phosphorus Magnesium Total Bilirubin AST ALT Alkaline Phosphatase Ammonia Total Creatine Kinase CK-MB (CK-2) CK-MB (CK-2) Rel Index Total Protein Albumin Urine WBC (Auto) Vancomycin Trough Salicylates Acetaminophen Plasma/Serum Alcohol Crossmatch 12/16/19 12/17/19 12/17/19 23:43 05:28 12:47 WBC RBC Hgb Hct MCH RDW Plt Count Lymph % (Auto) [place] % (Auto) [place] # Baso # Seg Neutrophils % Seg Neuts % (Manual) Lymphocytes % (Manual) Monocytes % (Manual) Seg Neutrophils # Seg Neutrophils # Man Lymphocytes # (Manual) Monocytes # (Manual) Eosinophils # (Manual) Basophils # (Manual) PT INR APTT ABG pH ABG pO2 ABG HCO3 ABG O2 Saturation ABG Base Excess ABG Hemoglobin Oxyhemoglobin Sodium Potassium Chloride Carbon Dioxide BUN Creatinine Glucose POC Glucose 142 H 140 H 125 H Lactic Acid Calcium Ionized Calcium Phosphorus Magnesium Total Bilirubin AST ALT Alkaline Phosphatase Ammonia Total Creatine Kinase CK-MB (CK-2) CK-MB (CK-2) Rel Index Total Protein Albumin Urine WBC (Auto) Vancomycin Trough Salicylates Acetaminophen Plasma/Serum Alcohol Crossmatch 12/17/19 12/17/19 12/17/19 17:05 18:00 Unknown WBC RBC Hgb Hct MCH RDW Plt Count Lymph % (Auto) [place] % (Auto) [place] # Baso # Seg Neutrophils % Seg Neuts % (Manual) Lymphocytes % (Manual) Monocytes % (Manual) Seg Neutrophils # Seg Neutrophils # Man Lymphocytes # (Manual) Monocytes # (Manual) Eosinophils # (Manual) Basophils # (Manual) PT INR APTT ABG pH ABG pO2 68.1 L ABG HCO3 ABG O2 Saturation 93.7 L ABG Base Excess ABG Hemoglobin 5.0 L Oxyhemoglobin 91.7 L Sodium Potassium Chloride Carbon Dioxide BUN Creatinine Glucose POC Glucose 140 H Lactic Acid Calcium Ionized Calcium Phosphorus Magnesium Total Bilirubin AST ALT Alkaline Phosphatase Ammonia Total Creatine Kinase CK-MB (CK-2) CK-MB (CK-2) Rel Index Total Protein Albumin Urine WBC (Auto) Vancomycin Trough Salicylates Acetaminophen Plasma/Serum Alcohol Crossmatch 12/18/19 12/18/19 12/18/19 00:16 04:53 04:53 WBC 28.6 H RBC 2.27 L Hgb 6.3 L Hct 19.5 L* MCH RDW 20.0 H Plt Count 497 H Lymph % (Auto) [place] % (Auto) [place] # Baso # Seg Neutrophils % Seg Neuts % (Manual) Lymphocytes % (Manual) Monocytes % (Manual) Seg Neutrophils # Seg Neutrophils # Man Lymphocytes # (Manual) Monocytes # (Manual) Eosinophils # (Manual) Basophils # (Manual) PT INR APTT ABG pH ABG pO2 ABG HCO3 ABG O2 Saturation ABG Base Excess ABG Hemoglobin Oxyhemoglobin Sodium Potassium Chloride 107.9 H Carbon Dioxide 20 L BUN 27 H Creatinine 0.6 L Glucose 116 H POC Glucose 123 H Lactic Acid Calcium Ionized Calcium Phosphorus Magnesium Total Bilirubin AST ALT Alkaline Phosphatase Ammonia Total Creatine Kinase CK-MB (CK-2) CK-MB (CK-2) Rel Index Total Protein Albumin Urine WBC (Auto) Vancomycin Trough Salicylates Acetaminophen Plasma/Serum Alcohol Crossmatch 12/18/19 12/18/19 12/18/19 06:38 11:22 12:08 WBC RBC Hgb Hct MCH RDW Plt Count Lymph % (Auto) [place] % (Auto) [place] # Baso # Seg Neutrophils % Seg Neuts % (Manual) Lymphocytes % (Manual) Monocytes % (Manual) Seg Neutrophils # Seg Neutrophils # Man Lymphocytes # (Manual) Monocytes # (Manual) Eosinophils # (Manual) Basophils # (Manual) PT INR APTT ABG pH ABG pO2 ABG HCO3 ABG O2 Saturation ABG Base Excess ABG Hemoglobin Oxyhemoglobin Sodium Potassium Chloride Carbon Dioxide BUN Creatinine Glucose POC Glucose 120 H 127 H Lactic Acid Calcium Ionized Calcium Phosphorus Magnesium Total Bilirubin AST ALT Alkaline Phosphatase Ammonia Total Creatine Kinase CK-MB (CK-2) CK-MB (CK-2) Rel Index Total Protein Albumin Urine WBC (Auto) Vancomycin Trough Salicylates Acetaminophen Plasma/Serum Alcohol Crossmatch See Detail 12/18/19 12/18/19 12/18/19 14:05 17:49 23:53 WBC RBC Hgb Hct MCH RDW Plt Count Lymph % (Auto) [place] % (Auto) [place] # Baso # Seg Neutrophils % Seg Neuts % (Manual) Lymphocytes % (Manual) Monocytes % (Manual) Seg Neutrophils # Seg Neutrophils # Man Lymphocytes # (Manual) Monocytes # (Manual) Eosinophils # (Manual) Basophils # (Manual) PT INR APTT ABG pH 7.267 L ABG pO2 69.8 L ABG HCO3 ABG O2 Saturation 88.4 L ABG Base Excess ABG Hemoglobin 7.1 L Oxyhemoglobin 86.4 L Sodium Potassium Chloride Carbon Dioxide BUN Creatinine Glucose POC Glucose 157 H 128 H Lactic Acid Calcium Ionized Calcium Phosphorus Magnesium Total Bilirubin AST ALT Alkaline Phosphatase Ammonia Total Creatine Kinase CK-MB (CK-2) CK-MB (CK-2) Rel Index Total Protein Albumin Urine WBC (Auto) Vancomycin Trough Salicylates Acetaminophen Plasma/Serum Alcohol Crossmatch 12/19/19 12/19/19 12/19/19 03:37 03:37 05:25 WBC 31.3 H RBC 2.60 L Hgb 7.6 L Hct 23.0 L MCH RDW 19.4 H Plt Count 530 H Lymph % (Auto) [place] % (Auto) [place] # Baso # Seg Neutrophils % Seg Neuts % (Manual) Lymphocytes % (Manual) Monocytes % (Manual) Seg Neutrophils # Seg Neutrophils # Man Lymphocytes # (Manual) Monocytes # (Manual) Eosinophils # (Manual) Basophils # (Manual) PT INR APTT ABG pH ABG pO2 ABG HCO3 ABG O2 Saturation ABG Base Excess ABG Hemoglobin Oxyhemoglobin Sodium Potassium Chloride Carbon Dioxide 18 L BUN 36 H Creatinine Glucose 111 H POC Glucose 123 H Lactic Acid Calcium Ionized Calcium Phosphorus Magnesium Total Bilirubin AST ALT Alkaline Phosphatase Ammonia Total Creatine Kinase CK-MB (CK-2) CK-MB (CK-2) Rel Index Total Protein Albumin Urine WBC (Auto) Vancomycin Trough Salicylates Acetaminophen Plasma/Serum Alcohol Crossmatch 12/19/19 12/19/19 12/20/19 12:59 18:33 00:00 WBC RBC Hgb Hct MCH RDW Plt Count Lymph % (Auto) [place] % (Auto) [place] # Baso # Seg Neutrophils % Seg Neuts % (Manual) Lymphocytes % (Manual) Monocytes % (Manual) Seg Neutrophils # Seg Neutrophils # Man Lymphocytes # (Manual) Monocytes # (Manual) Eosinophils # (Manual) Basophils # (Manual) PT INR APTT ABG pH ABG pO2 ABG HCO3 ABG O2 Saturation ABG Base Excess ABG Hemoglobin Oxyhemoglobin Sodium Potassium Chloride Carbon Dioxide BUN Creatinine Glucose POC Glucose 130 H 118 H 135 H Lactic Acid Calcium Ionized Calcium Phosphorus Magnesium Total Bilirubin AST ALT Alkaline Phosphatase Ammonia Total Creatine Kinase CK-MB (CK-2) CK-MB (CK-2) Rel Index Total Protein Albumin Urine WBC (Auto) Vancomycin Trough Salicylates Acetaminophen Plasma/Serum Alcohol Crossmatch 12/20/19 12/20/19 12/20/19 05:46 12:31 18:07 WBC RBC Hgb Hct MCH RDW Plt Count Lymph % (Auto) [place] % (Auto) [place] # Baso # Seg Neutrophils % Seg Neuts % (Manual) Lymphocytes % (Manual) Monocytes % (Manual) Seg Neutrophils # Seg Neutrophils # Man Lymphocytes # (Manual) Monocytes # (Manual) Eosinophils # (Manual) Basophils # (Manual) PT INR APTT ABG pH ABG pO2 ABG HCO3 ABG O2 Saturation ABG Base Excess ABG Hemoglobin Oxyhemoglobin Sodium Potassium Chloride Carbon Dioxide BUN Creatinine Glucose POC Glucose 131 H 128 H 134 H Lactic Acid Calcium Ionized Calcium Phosphorus Magnesium Total Bilirubin AST ALT Alkaline Phosphatase Ammonia Total Creatine Kinase CK-MB (CK-2) CK-MB (CK-2) Rel Index Total Protein Albumin Urine WBC (Auto) Vancomycin Trough Salicylates Acetaminophen Plasma/Serum Alcohol Crossmatch 12/21/19 12/21/19 12/21/19 03:28 03:28 07:21 WBC 29.4 H RBC 2.30 L Hgb 6.8 L Hct 20.2 L MCH RDW 20.2 H Plt Count 746 H Lymph % (Auto) [place] % (Auto) [place] # Baso # Seg Neutrophils % Seg Neuts % (Manual) 85.0 H Lymphocytes % (Manual) 8.0 L Monocytes % (Manual) Seg Neutrophils # Seg Neutrophils # Man 25.0 H Lymphocytes # (Manual) Monocytes # (Manual) 1.5 H Eosinophils # (Manual) 0.6 H Basophils # (Manual) PT INR APTT ABG pH ABG pO2 ABG HCO3 ABG O2 Saturation ABG Base Excess ABG Hemoglobin Oxyhemoglobin Sodium Potassium Chloride Carbon Dioxide 17 L BUN 57 H Creatinine 1.4 H D Glucose POC Glucose 124 H Lactic Acid Calcium Ionized Calcium Phosphorus Magnesium Total Bilirubin AST ALT Alkaline Phosphatase Ammonia Total Creatine Kinase CK-MB (CK-2) CK-MB (CK-2) Rel Index Total Protein Albumin Urine WBC (Auto) Vancomycin Trough Salicylates Acetaminophen Plasma/Serum Alcohol Crossmatch 12/21/19 12/21/19 12/21/19 08:56 12:06 14:53 WBC RBC Hgb 7.2 L Hct 22.9 L MCH RDW Plt Count Lymph % (Auto) [place] % (Auto) [place] # Baso # Seg Neutrophils % Seg Neuts % (Manual) Lymphocytes % (Manual) Monocytes % (Manual) Seg Neutrophils # Seg Neutrophils # Man Lymphocytes # (Manual) Monocytes # (Manual) Eosinophils # (Manual) Basophils # (Manual) PT INR APTT ABG pH ABG pO2 ABG HCO3 ABG O2 Saturation ABG Base Excess ABG Hemoglobin Oxyhemoglobin Sodium Potassium Chloride Carbon Dioxide BUN Creatinine Glucose POC Glucose 116 H Lactic Acid Calcium Ionized Calcium Phosphorus Magnesium Total Bilirubin AST ALT Alkaline Phosphatase Ammonia Total Creatine Kinase CK-MB (CK-2) CK-MB (CK-2) Rel Index Total Protein Albumin Urine WBC (Auto) Vancomycin Trough 33.8 H Salicylates Acetaminophen Plasma/Serum Alcohol Crossmatch 12/21/19 12/21/19 12/21/19 14:54 17:27 23:49 WBC RBC Hgb Hct MCH RDW Plt Count Lymph % (Auto) [place] % (Auto) [place] # Baso # Seg Neutrophils % Seg Neuts % (Manual) Lymphocytes % (Manual) Monocytes % (Manual) Seg Neutrophils # Seg Neutrophils # Man Lymphocytes # (Manual) Monocytes # (Manual) Eosinophils # (Manual) Basophils # (Manual) PT INR APTT ABG pH ABG pO2 ABG HCO3 ABG O2 Saturation ABG Base Excess ABG Hemoglobin Oxyhemoglobin Sodium Potassium Chloride Carbon Dioxide BUN Creatinine Glucose POC Glucose 145 H 127 H Lactic Acid Calcium Ionized Calcium Phosphorus Magnesium Total Bilirubin AST ALT Alkaline Phosphatase Ammonia Total Creatine Kinase CK-MB (CK-2) CK-MB (CK-2) Rel Index Total Protein Albumin Urine WBC (Auto) Vancomycin Trough Salicylates Acetaminophen Plasma/Serum Alcohol Crossmatch See Detail 12/22/19 12/22/19 12/22/19 04:43 05:56 08:40 WBC RBC Hgb Hct MCH RDW Plt Count Lymph % (Auto) [place] % (Auto) [place] # Baso # Seg Neutrophils % Seg Neuts % (Manual) Lymphocytes % (Manual) Monocytes % (Manual) Seg Neutrophils # Seg Neutrophils # Man Lymphocytes # (Manual) Monocytes # (Manual) Eosinophils # (Manual) Basophils # (Manual) PT INR APTT ABG pH ABG pO2 75.6 L ABG HCO3 ABG O2 Saturation ABG Base Excess -2.6 L ABG Hemoglobin 6.8 L Oxyhemoglobin 94.6 L Sodium Potassium Chloride Carbon Dioxide 17 L BUN 60 H Creatinine 1.4 H Glucose 126 H POC Glucose 153 H Lactic Acid Calcium Ionized Calcium Phosphorus Magnesium Total Bilirubin AST ALT Alkaline Phosphatase Ammonia Total Creatine Kinase CK-MB (CK-2) CK-MB (CK-2) Rel Index Total Protein Albumin Urine WBC (Auto) Vancomycin Trough Salicylates Acetaminophen Plasma/Serum Alcohol Crossmatch 12/22/19 12/22/19 12/23/19 12:07 17:49 04:30 WBC 22.4 H RBC 2.68 L Hgb 7.6 L Hct 22.9 L MCH RDW 19.9 H Plt Count 998 H Lymph % (Auto) [place] % (Auto) [place] # Baso # Seg Neutrophils % Seg Neuts % (Manual) 88.0 H Lymphocytes % (Manual) 2.0 L Monocytes % (Manual) 9.0 H Seg Neutrophils # Seg Neutrophils # Man 19.7 H Lymphocytes # (Manual) 0.4 L Monocytes # (Manual) 2.0 H Eosinophils # (Manual) Basophils # (Manual) PT INR APTT ABG pH ABG pO2 ABG HCO3 ABG O2 Saturation ABG Base Excess ABG Hemoglobin Oxyhemoglobin Sodium Potassium Chloride Carbon Dioxide BUN Creatinine Glucose POC Glucose 140 H 116 H Lactic Acid Calcium Ionized Calcium Phosphorus Magnesium Total Bilirubin AST ALT Alkaline Phosphatase Ammonia Total Creatine Kinase CK-MB (CK-2) CK-MB (CK-2) Rel Index Total Protein Albumin Urine WBC (Auto) Vancomycin Trough Salicylates Acetaminophen Plasma/Serum Alcohol Crossmatch 12/23/19 12/23/19 12/23/19 04:30 12:00 18:06 WBC RBC Hgb Hct MCH RDW Plt Count Lymph % (Auto) [place] % (Auto) [place] # Baso # Seg Neutrophils % Seg Neuts % (Manual) Lymphocytes % (Manual) Monocytes % (Manual) Seg Neutrophils # Seg Neutrophils # Man Lymphocytes # (Manual) Monocytes # (Manual) Eosinophils # (Manual) Basophils # (Manual) PT INR APTT ABG pH ABG pO2 ABG HCO3 ABG O2 Saturation ABG Base Excess ABG Hemoglobin Oxyhemoglobin Sodium Potassium 5.2 H Chloride Carbon Dioxide 21 L BUN 69 H Creatinine 1.5 H Glucose 117 H POC Glucose 128 H 138 H Lactic Acid Calcium Ionized Calcium Phosphorus Magnesium Total Bilirubin AST ALT Alkaline Phosphatase Ammonia Total Creatine Kinase CK-MB (CK-2) CK-MB (CK-2) Rel Index Total Protein Albumin Urine WBC (Auto) Vancomycin Trough Salicylates Acetaminophen Plasma/Serum Alcohol Crossmatch 12/23/19 12/24/19 12/24/19 23:46 04:31 05:08 WBC RBC Hgb Hct MCH RDW Plt Count Lymph % (Auto) [place] % (Auto) [place] # Baso # Seg Neutrophils % Seg Neuts % (Manual) Lymphocytes % (Manual) Monocytes % (Manual) Seg Neutrophils # Seg Neutrophils # Man Lymphocytes # (Manual) Monocytes # (Manual) Eosinophils # (Manual) Basophils # (Manual) PT INR APTT ABG pH ABG pO2 ABG HCO3 ABG O2 Saturation ABG Base Excess ABG Hemoglobin Oxyhemoglobin Sodium Potassium 5.3 H Chloride 107.6 H Carbon Dioxide 20 L BUN 72 H Creatinine 1.6 H Glucose 120 H POC Glucose 120 H 140 H Lactic Acid Calcium Ionized Calcium Phosphorus Magnesium Total Bilirubin AST ALT Alkaline Phosphatase Ammonia Total Creatine Kinase CK-MB (CK-2) CK-MB (CK-2) Rel Index Total Protein Albumin Urine WBC (Auto) Vancomycin Trough Salicylates Acetaminophen Plasma/Serum Alcohol Crossmatch 12/24/19 12/24/19 12/25/19 11:58 17:49 03:47 WBC 36.2 H RBC 2.92 L Hgb 8.4 L Hct 26.1 L MCH RDW 20.2 H Plt Count 942 H Lymph % (Auto) [place] % (Auto) [place] # Baso # Seg Neutrophils % Seg Neuts % (Manual) 97.5 H Lymphocytes % (Manual) 1.0 L Monocytes % (Manual) Seg Neutrophils # Seg Neutrophils # Man 35.3 H Lymphocytes # (Manual) 0.4 L Monocytes # (Manual) Eosinophils # (Manual) Basophils # (Manual) PT INR APTT ABG pH ABG pO2 ABG HCO3 ABG O2 Saturation ABG Base Excess ABG Hemoglobin Oxyhemoglobin Sodium Potassium Chloride Carbon Dioxide BUN Creatinine Glucose POC Glucose 146 H 131 H Lactic Acid Calcium Ionized Calcium Phosphorus Magnesium Total Bilirubin AST ALT Alkaline Phosphatase Ammonia Total Creatine Kinase CK-MB (CK-2) CK-MB (CK-2) Rel Index Total Protein Albumin Urine WBC (Auto) Vancomycin Trough Salicylates Acetaminophen Plasma/Serum Alcohol Crossmatch 12/25/19 12/25/19 12/25/19 03:47 05:30 12:23 WBC RBC Hgb Hct MCH RDW Plt Count Lymph % (Auto) [place] % (Auto) [place] # Baso # Seg Neutrophils % Seg Neuts % (Manual) Lymphocytes % (Manual) Monocytes % (Manual) Seg Neutrophils # Seg Neutrophils # Man Lymphocytes # (Manual) Monocytes # (Manual) Eosinophils # (Manual) Basophils # (Manual) PT INR APTT ABG pH ABG pO2 ABG HCO3 ABG O2 Saturation ABG Base Excess ABG Hemoglobin Oxyhemoglobin Sodium Potassium Chloride Carbon Dioxide 15 L BUN 70 H Creatinine 1.7 H Glucose 153 H POC Glucose 169 H 135 H Lactic Acid Calcium Ionized Calcium Phosphorus Magnesium Total Bilirubin AST ALT Alkaline Phosphatase Ammonia Total Creatine Kinase CK-MB (CK-2) CK-MB (CK-2) Rel Index Total Protein Albumin Urine WBC (Auto) Vancomycin Trough Salicylates Acetaminophen Plasma/Serum Alcohol Crossmatch 12/25/19 12/25/19 12/26/19 17:37 23:29 09:47 WBC 22.1 H RBC 2.83 L Hgb 7.9 L Hct 25.5 L MCH RDW 20.0 H Plt Count 894 H Lymph % (Auto) [place] % (Auto) [place] # Baso # Seg Neutrophils % Seg Neuts % (Manual) Lymphocytes % (Manual) Monocytes % (Manual) Seg Neutrophils # Seg Neutrophils # Man Lymphocytes # (Manual) Monocytes # (Manual) Eosinophils # (Manual) Basophils # (Manual) PT INR APTT ABG pH ABG pO2 ABG HCO3 ABG O2 Saturation ABG Base Excess ABG Hemoglobin Oxyhemoglobin Sodium Potassium Chloride Carbon Dioxide BUN Creatinine Glucose POC Glucose 120 H 140 H Lactic Acid Calcium Ionized Calcium Phosphorus Magnesium Total Bilirubin AST ALT Alkaline Phosphatase Ammonia Total Creatine Kinase CK-MB (CK-2) CK-MB (CK-2) Rel Index Total Protein Albumin Urine WBC (Auto) Vancomycin Trough Salicylates Acetaminophen Plasma/Serum Alcohol Crossmatch 12/26/19 12/26/19 12/26/19 09:47 11:46 17:52 WBC RBC Hgb Hct MCH RDW Plt Count Lymph % (Auto) [place] % (Auto) [place] # Baso # Seg Neutrophils % Seg Neuts % (Manual) Lymphocytes % (Manual) Monocytes % (Manual) Seg Neutrophils # Seg Neutrophils # Man Lymphocytes # (Manual) Monocytes # (Manual) Eosinophils # (Manual) Basophils # (Manual) PT INR APTT ABG pH ABG pO2 ABG HCO3 ABG O2 Saturation ABG Base Excess ABG Hemoglobin Oxyhemoglobin Sodium Potassium Chloride Carbon Dioxide 18 L BUN 65 H Creatinine 1.4 H Glucose 132 H POC Glucose 110 H 145 H Lactic Acid Calcium Ionized Calcium Phosphorus Magnesium Total Bilirubin AST ALT Alkaline Phosphatase Ammonia Total Creatine Kinase CK-MB (CK-2) CK-MB (CK-2) Rel Index Total Protein Albumin Urine WBC (Auto) Vancomycin Trough Salicylates Acetaminophen Plasma/Serum Alcohol Crossmatch 12/27/19 12/27/19 12/27/19 00:01 03:42 03:42 WBC 18.0 H RBC 2.86 L Hgb 8.0 L Hct 25.2 L MCH RDW 19.2 H Plt Count 873 H Lymph % (Auto) 8.4 L [place] % (Auto) 7.5 H [place] # 1.4 H Baso # 0.2 H Seg Neutrophils % 82.2 H Seg Neuts % (Manual) Lymphocytes % (Manual) Monocytes % (Manual) Seg Neutrophils # 14.8 H Seg Neutrophils # Man Lymphocytes # (Manual) Monocytes # (Manual) Eosinophils # (Manual) Basophils # (Manual) PT INR APTT ABG pH ABG pO2 ABG HCO3 ABG O2 Saturation ABG Base Excess ABG Hemoglobin Oxyhemoglobin Sodium Potassium Chloride Carbon Dioxide BUN 73 H Creatinine 1.4 H Glucose 119 H POC Glucose 124 H Lactic Acid Calcium Ionized Calcium Phosphorus Magnesium Total Bilirubin AST ALT Alkaline Phosphatase Ammonia Total Creatine Kinase CK-MB (CK-2) CK-MB (CK-2) Rel Index Total Protein Albumin Urine WBC (Auto) Vancomycin Trough Salicylates Acetaminophen Plasma/Serum Alcohol Crossmatch 12/27/19 12/27/19 12/27/19 05:45 11:45 17:29 WBC RBC Hgb Hct MCH RDW Plt Count Lymph % (Auto) [place] % (Auto) [place] # Baso # Seg Neutrophils % Seg Neuts % (Manual) Lymphocytes % (Manual) Monocytes % (Manual) Seg Neutrophils # Seg Neutrophils # Man Lymphocytes # (Manual) Monocytes # (Manual) Eosinophils # (Manual) Basophils # (Manual) PT INR APTT ABG pH ABG pO2 ABG HCO3 ABG O2 Saturation ABG Base Excess ABG Hemoglobin Oxyhemoglobin Sodium Potassium Chloride Carbon Dioxide BUN Creatinine Glucose POC Glucose 131 H 123 H 134 H Lactic Acid Calcium Ionized Calcium Phosphorus Magnesium Total Bilirubin AST ALT Alkaline Phosphatase Ammonia Total Creatine Kinase CK-MB (CK-2) CK-MB (CK-2) Rel Index Total Protein Albumin Urine WBC (Auto) Vancomycin Trough Salicylates Acetaminophen Plasma/Serum Alcohol Crossmatch 12/28/19 12/28/19 12/28/19 00:12 05:14 11:53 WBC RBC Hgb Hct MCH RDW Plt Count Lymph % (Auto) [place] % (Auto) [place] # Baso # Seg Neutrophils % Seg Neuts % (Manual) Lymphocytes % (Manual) Monocytes % (Manual) Seg Neutrophils # Seg Neutrophils # Man Lymphocytes # (Manual) Monocytes # (Manual) Eosinophils # (Manual) Basophils # (Manual) PT INR APTT ABG pH ABG pO2 ABG HCO3 ABG O2 Saturation ABG Base Excess ABG Hemoglobin Oxyhemoglobin Sodium Potassium Chloride Carbon Dioxide BUN Creatinine Glucose POC Glucose 138 H 130 H 146 H Lactic Acid Calcium Ionized Calcium Phosphorus Magnesium Total Bilirubin AST ALT Alkaline Phosphatase Ammonia Total Creatine Kinase CK-MB (CK-2) CK-MB (CK-2) Rel Index Total Protein Albumin Urine WBC (Auto) Vancomycin Trough Salicylates Acetaminophen Plasma/Serum Alcohol Crossmatch 12/28/19 12/29/19 12/29/19 17:39 00:01 18:11 WBC RBC Hgb Hct MCH RDW Plt Count Lymph % (Auto) [place] % (Auto) [place] # Baso # Seg Neutrophils % Seg Neuts % (Manual) Lymphocytes % (Manual) Monocytes % (Manual) Seg Neutrophils # Seg Neutrophils # Man Lymphocytes # (Manual) Monocytes # (Manual) Eosinophils # (Manual) Basophils # (Manual) PT INR APTT ABG pH ABG pO2 ABG HCO3 ABG O2 Saturation ABG Base Excess ABG Hemoglobin Oxyhemoglobin Sodium Potassium Chloride Carbon Dioxide BUN Creatinine Glucose POC Glucose 117 H 139 H 130 H Lactic Acid Calcium Ionized Calcium Phosphorus Magnesium Total Bilirubin AST ALT Alkaline Phosphatase Ammonia Total Creatine Kinase CK-MB (CK-2) CK-MB (CK-2) Rel Index Total Protein Albumin Urine WBC (Auto) Vancomycin Trough Salicylates Acetaminophen Plasma/Serum Alcohol Crossmatch 12/29/19 12/30/19 12/30/19 23:09 00:02 01:06 WBC 16.7 H RBC 2.91 L Hgb 8.2 L Hct 25.4 L MCH RDW 18.7 H Plt Count 708 H Lymph % (Auto) 9.4 L [place] % (Auto) [place] # 0.9 H Baso # Seg Neutrophils % 83.5 H Seg Neuts % (Manual) Lymphocytes % (Manual) Monocytes % (Manual) Seg Neutrophils # 14.0 H Seg Neutrophils # Man Lymphocytes # (Manual) Monocytes # (Manual) Eosinophils # (Manual) Basophils # (Manual) PT INR APTT ABG pH ABG pO2 ABG HCO3 ABG O2 Saturation ABG Base Excess ABG Hemoglobin Oxyhemoglobin Sodium Potassium Chloride Carbon Dioxide BUN Creatinine Glucose POC Glucose 120 H 114 H Lactic Acid Calcium Ionized Calcium Phosphorus Magnesium Total Bilirubin AST ALT Alkaline Phosphatase Ammonia Total Creatine Kinase CK-MB (CK-2) CK-MB (CK-2) Rel Index Total Protein Albumin Urine WBC (Auto) Vancomycin Trough Salicylates Acetaminophen Plasma/Serum Alcohol Crossmatch 12/30/19 12/30/19 12/30/19 01:06 04:23 05:18 WBC RBC Hgb Hct MCH RDW Plt Count Lymph % (Auto) [place] % (Auto) [place] # Baso # Seg Neutrophils % Seg Neuts % (Manual) Lymphocytes % (Manual) Monocytes % (Manual) Seg Neutrophils # Seg Neutrophils # Man Lymphocytes # (Manual) Monocytes # (Manual) Eosinophils # (Manual) Basophils # (Manual) PT INR APTT ABG pH ABG pO2 ABG HCO3 ABG O2 Saturation ABG Base Excess ABG Hemoglobin 8.3 L Oxyhemoglobin Sodium Potassium Chloride Carbon Dioxide BUN 70 H Creatinine Glucose 122 H POC Glucose 130 H Lactic Acid Calcium Ionized Calcium Phosphorus Magnesium Total Bilirubin AST ALT Alkaline Phosphatase Ammonia Total Creatine Kinase CK-MB (CK-2) CK-MB (CK-2) Rel Index Total Protein Albumin Urine WBC (Auto) Vancomycin Trough Salicylates Acetaminophen Plasma/Serum Alcohol Crossmatch 12/30/19 12/30/19 12/30/19 05:40 12:17 17:43 WBC RBC Hgb Hct MCH RDW Plt Count Lymph % (Auto) [place] % (Auto) [place] # Baso # Seg Neutrophils % Seg Neuts % (Manual) Lymphocytes % (Manual) Monocytes % (Manual) Seg Neutrophils # Seg Neutrophils # Man Lymphocytes # (Manual) Monocytes # (Manual) Eosinophils # (Manual) Basophils # (Manual) PT INR APTT ABG pH ABG pO2 ABG HCO3 ABG O2 Saturation ABG Base Excess ABG Hemoglobin Oxyhemoglobin Sodium Potassium Chloride Carbon Dioxide BUN Creatinine Glucose POC Glucose 135 H 132 H 118 H Lactic Acid Calcium Ionized Calcium Phosphorus Magnesium Total Bilirubin AST ALT Alkaline Phosphatase Ammonia Total Creatine Kinase CK-MB (CK-2) CK-MB (CK-2) Rel Index Total Protein Albumin Urine WBC (Auto) Vancomycin Trough Salicylates Acetaminophen Plasma/Serum Alcohol Crossmatch 12/30/19 12/31/19 12/31/19 23:29 05:19 17:50 WBC RBC Hgb Hct MCH RDW Plt Count Lymph % (Auto) [place] % (Auto) [place] # Baso # Seg Neutrophils % Seg Neuts % (Manual) Lymphocytes % (Manual) Monocytes % (Manual) Seg Neutrophils # Seg Neutrophils # Man Lymphocytes # (Manual) Monocytes # (Manual) Eosinophils # (Manual) Basophils # (Manual) PT INR APTT ABG pH ABG pO2 ABG HCO3 ABG O2 Saturation ABG Base Excess ABG Hemoglobin Oxyhemoglobin Sodium Potassium Chloride Carbon Dioxide BUN Creatinine Glucose POC Glucose 114 H 109 H 116 H Lactic Acid Calcium Ionized Calcium Phosphorus Magnesium Total Bilirubin AST ALT Alkaline Phosphatase Ammonia Total Creatine Kinase CK-MB (CK-2) CK-MB (CK-2) Rel Index Total Protein Albumin Urine WBC (Auto) Vancomycin Trough Salicylates Acetaminophen Plasma/Serum Alcohol Crossmatch 01/01/20 01/01/20 01/01/20 00:10 05:19 12:02 WBC RBC Hgb Hct MCH RDW Plt Count Lymph % (Auto) [place] % (Auto) [place] # Baso # Seg Neutrophils % Seg Neuts % (Manual) Lymphocytes % (Manual) Monocytes % (Manual) Seg Neutrophils # Seg Neutrophils # Man Lymphocytes # (Manual) Monocytes # (Manual) Eosinophils # (Manual) Basophils # (Manual) PT INR APTT ABG pH ABG pO2 ABG HCO3 ABG O2 Saturation ABG Base Excess ABG Hemoglobin Oxyhemoglobin Sodium Potassium Chloride Carbon Dioxide BUN Creatinine Glucose POC Glucose 131 H 122 H 136 H Lactic Acid Calcium Ionized Calcium Phosphorus Magnesium Total Bilirubin AST ALT Alkaline Phosphatase Ammonia Total Creatine Kinase CK-MB (CK-2) CK-MB (CK-2) Rel Index Total Protein Albumin Urine WBC (Auto) Vancomycin Trough Salicylates Acetaminophen Plasma/Serum Alcohol Crossmatch 01/02/20 01/02/20 01/02/20 00:24 05:36 11:41 WBC RBC Hgb Hct MCH RDW Plt Count Lymph % (Auto) [place] % (Auto) [place] # Baso # Seg Neutrophils % Seg Neuts % (Manual) Lymphocytes % (Manual) Monocytes % (Manual) Seg Neutrophils # Seg Neutrophils # Man Lymphocytes # (Manual) Monocytes # (Manual) Eosinophils # (Manual) Basophils # (Manual) PT INR APTT ABG pH ABG pO2 ABG HCO3 ABG O2 Saturation ABG Base Excess ABG Hemoglobin Oxyhemoglobin Sodium Potassium Chloride Carbon Dioxide BUN Creatinine Glucose POC Glucose 119 H 109 H 125 H Lactic Acid Calcium Ionized Calcium Phosphorus Magnesium Total Bilirubin AST ALT Alkaline Phosphatase Ammonia Total Creatine Kinase CK-MB (CK-2) CK-MB (CK-2) Rel Index Total Protein Albumin Urine WBC (Auto) Vancomycin Trough Salicylates Acetaminophen Plasma/Serum Alcohol Crossmatch 01/02/20 01/03/20 01/03/20 17:49 05:29 12:13 WBC RBC Hgb Hct MCH RDW Plt Count Lymph % (Auto) [place] % (Auto) [place] # Baso # Seg Neutrophils % Seg Neuts % (Manual) Lymphocytes % (Manual) Monocytes % (Manual) Seg Neutrophils # Seg Neutrophils # Man Lymphocytes # (Manual) Monocytes # (Manual) Eosinophils # (Manual) Basophils # (Manual) PT INR APTT ABG pH ABG pO2 ABG HCO3 ABG O2 Saturation ABG Base Excess ABG Hemoglobin Oxyhemoglobin Sodium Potassium Chloride Carbon Dioxide BUN Creatinine Glucose POC Glucose 130 H 132 H 113 H Lactic Acid Calcium Ionized Calcium Phosphorus Magnesium Total Bilirubin AST ALT Alkaline Phosphatase Ammonia Total Creatine Kinase CK-MB (CK-2) CK-MB (CK-2) Rel Index Total Protein Albumin Urine WBC (Auto) Vancomycin Trough Salicylates Acetaminophen Plasma/Serum Alcohol Crossmatch 01/03/20 01/04/20 01/04/20 17:32 00:19 05:26 WBC RBC Hgb Hct MCH RDW Plt Count Lymph % (Auto) [place] % (Auto) [place] # Baso # Seg Neutrophils % Seg Neuts % (Manual) Lymphocytes % (Manual) Monocytes % (Manual) Seg Neutrophils # Seg Neutrophils # Man Lymphocytes # (Manual) Monocytes # (Manual) Eosinophils # (Manual) Basophils # (Manual) PT INR APTT ABG pH ABG pO2 ABG HCO3 ABG O2 Saturation ABG Base Excess ABG Hemoglobin Oxyhemoglobin Sodium Potassium Chloride Carbon Dioxide BUN Creatinine Glucose POC Glucose 127 H 141 H 129 H Lactic Acid Calcium Ionized Calcium Phosphorus Magnesium Total Bilirubin AST ALT Alkaline Phosphatase Ammonia Total Creatine Kinase CK-MB (CK-2) CK-MB (CK-2) Rel Index Total Protein Albumin Urine WBC (Auto) Vancomycin Trough Salicylates Acetaminophen Plasma/Serum Alcohol Crossmatch 01/04/20 01/04/20 01/05/20 11:39 17:29 05:22 WBC RBC Hgb Hct MCH RDW Plt Count Lymph % (Auto) [place] % (Auto) [place] # Baso # Seg Neutrophils % Seg Neuts % (Manual) Lymphocytes % (Manual) Monocytes % (Manual) Seg Neutrophils # Seg Neutrophils # Man Lymphocytes # (Manual) Monocytes # (Manual) Eosinophils # (Manual) Basophils # (Manual) PT INR APTT ABG pH ABG pO2 ABG HCO3 ABG O2 Saturation ABG Base Excess ABG Hemoglobin Oxyhemoglobin Sodium Potassium Chloride Carbon Dioxide BUN Creatinine Glucose POC Glucose 167 H 132 H 121 H Lactic Acid Calcium Ionized Calcium Phosphorus Magnesium Total Bilirubin AST ALT Alkaline Phosphatase Ammonia Total Creatine Kinase CK-MB (CK-2) CK-MB (CK-2) Rel Index Total Protein Albumin Urine WBC (Auto) Vancomycin Trough Salicylates Acetaminophen Plasma/Serum Alcohol Crossmatch 01/05/20 01/05/20 01/05/20 12:25 17:40 18:06 WBC RBC Hgb Hct MCH RDW Plt Count Lymph % (Auto) [place] % (Auto) [place] # Baso # Seg Neutrophils % Seg Neuts % (Manual) Lymphocytes % (Manual) Monocytes % (Manual) Seg Neutrophils # Seg Neutrophils # Man Lymphocytes # (Manual) Monocytes # (Manual) Eosinophils # (Manual) Basophils # (Manual) PT INR APTT ABG pH 7.472 H ABG pO2 99.2 H ABG HCO3 ABG O2 Saturation ABG Base Excess ABG Hemoglobin 7.8 L Oxyhemoglobin Sodium Potassium Chloride Carbon Dioxide BUN Creatinine Glucose POC Glucose 106 H 110 H Lactic Acid Calcium Ionized Calcium Phosphorus Magnesium Total Bilirubin AST ALT Alkaline Phosphatase Ammonia Total Creatine Kinase CK-MB (CK-2) CK-MB (CK-2) Rel Index Total Protein Albumin Urine WBC (Auto) Vancomycin Trough Salicylates Acetaminophen Plasma/Serum Alcohol Crossmatch 01/06/20 01/06/20 01/06/20 00:11 05:16 11:30 WBC RBC Hgb Hct MCH RDW Plt Count Lymph % (Auto) [place] % (Auto) [place] # Baso # Seg Neutrophils % Seg Neuts % (Manual) Lymphocytes % (Manual) Monocytes % (Manual) Seg Neutrophils # Seg Neutrophils # Man Lymphocytes # (Manual) Monocytes # (Manual) Eosinophils # (Manual) Basophils # (Manual) PT INR APTT ABG pH ABG pO2 ABG HCO3 ABG O2 Saturation ABG Base Excess ABG Hemoglobin Oxyhemoglobin Sodium Potassium Chloride Carbon Dioxide BUN Creatinine Glucose POC Glucose 108 H 124 H 125 H Lactic Acid Calcium Ionized Calcium Phosphorus Magnesium Total Bilirubin AST ALT Alkaline Phosphatase Ammonia Total Creatine Kinase CK-MB (CK-2) CK-MB (CK-2) Rel Index Total Protein Albumin Urine WBC (Auto) Vancomycin Trough Salicylates Acetaminophen Plasma/Serum Alcohol Crossmatch 01/06/20 01/06/20 01/07/20 17:53 23:51 04:12 WBC 16.5 H RBC 3.29 L Hgb 9.3 L Hct 28.1 L MCH RDW 18.2 H Plt Count 526 H Lymph % (Auto) 8.4 L [place] % (Auto) [place] # 1.0 H Baso # Seg Neutrophils % 84.4 H Seg Neuts % (Manual) Lymphocytes % (Manual) Monocytes % (Manual) Seg Neutrophils # 13.9 H Seg Neutrophils # Man Lymphocytes # (Manual) Monocytes # (Manual) Eosinophils # (Manual) Basophils # (Manual) PT INR APTT ABG pH ABG pO2 ABG HCO3 ABG O2 Saturation ABG Base Excess ABG Hemoglobin Oxyhemoglobin Sodium Potassium Chloride Carbon Dioxide BUN Creatinine Glucose POC Glucose 166 H 128 H Lactic Acid Calcium Ionized Calcium Phosphorus Magnesium Total Bilirubin AST ALT Alkaline Phosphatase Ammonia Total Creatine Kinase CK-MB (CK-2) CK-MB (CK-2) Rel Index Total Protein Albumin Urine WBC (Auto) Vancomycin Trough Salicylates Acetaminophen Plasma/Serum Alcohol Crossmatch 01/07/20 01/07/20 01/07/20 04:12 04:45 11:51 WBC RBC Hgb Hct MCH RDW Plt Count Lymph % (Auto) [place] % (Auto) [place] # Baso # Seg Neutrophils % Seg Neuts % (Manual) Lymphocytes % (Manual) Monocytes % (Manual) Seg Neutrophils # Seg Neutrophils # Man Lymphocytes # (Manual) Monocytes # (Manual) Eosinophils # (Manual) Basophils # (Manual) PT INR APTT ABG pH ABG pO2 ABG HCO3 ABG O2 Saturation ABG Base Excess ABG Hemoglobin Oxyhemoglobin Sodium 136 L Potassium Chloride Carbon Dioxide 21 L BUN 44 H Creatinine 0.6 L Glucose 124 H POC Glucose 134 H 138 H Lactic Acid Calcium Ionized Calcium Phosphorus Magnesium Total Bilirubin AST ALT Alkaline Phosphatase Ammonia Total Creatine Kinase CK-MB (CK-2) CK-MB (CK-2) Rel Index Total Protein Albumin Urine WBC (Auto) Vancomycin Trough Salicylates Acetaminophen Plasma/Serum Alcohol Crossmatch 01/07/20 01/08/20 01/08/20 17:36 00:33 05:29 WBC RBC Hgb Hct MCH RDW Plt Count Lymph % (Auto) [place] % (Auto) [place] # Baso # Seg Neutrophils % Seg Neuts % (Manual) Lymphocytes % (Manual) Monocytes % (Manual) Seg Neutrophils # Seg Neutrophils # Man Lymphocytes # (Manual) Monocytes # (Manual) Eosinophils # (Manual) Basophils # (Manual) PT INR APTT ABG pH ABG pO2 ABG HCO3 ABG O2 Saturation ABG Base Excess ABG Hemoglobin Oxyhemoglobin Sodium Potassium Chloride Carbon Dioxide BUN Creatinine Glucose POC Glucose 128 H 119 H 124 H Lactic Acid Calcium Ionized Calcium Phosphorus Magnesium Total Bilirubin AST ALT Alkaline Phosphatase Ammonia Total Creatine Kinase CK-MB (CK-2) CK-MB (CK-2) Rel Index Total Protein Albumin Urine WBC (Auto) Vancomycin Trough Salicylates Acetaminophen Plasma/Serum Alcohol Crossmatch 01/08/20 01/08/20 01/08/20 12:51 20:25 23:22 WBC RBC Hgb Hct MCH RDW Plt Count Lymph % (Auto) [place] % (Auto) [place] # Baso # Seg Neutrophils % Seg Neuts % (Manual) Lymphocytes % (Manual) Monocytes % (Manual) Seg Neutrophils # Seg Neutrophils # Man Lymphocytes # (Manual) Monocytes # (Manual) Eosinophils # (Manual) Basophils # (Manual) PT INR APTT ABG pH ABG pO2 132.2 H ABG HCO3 ABG O2 Saturation ABG Base Excess ABG Hemoglobin Oxyhemoglobin Sodium Potassium Chloride Carbon Dioxide BUN Creatinine Glucose POC Glucose 128 H 127 H Lactic Acid Calcium Ionized Calcium Phosphorus Magnesium Total Bilirubin AST ALT Alkaline Phosphatase Ammonia Total Creatine Kinase CK-MB (CK-2) CK-MB (CK-2) Rel Index Total Protein Albumin Urine WBC (Auto) Vancomycin Trough Salicylates Acetaminophen Plasma/Serum Alcohol Crossmatch 01/09/20 01/09/20 01/09/20 05:48 08:51 11:29 WBC RBC Hgb Hct MCH RDW Plt Count Lymph % (Auto) [place] % (Auto) [place] # Baso # Seg Neutrophils % Seg Neuts % (Manual) Lymphocytes % (Manual) Monocytes % (Manual) Seg Neutrophils # Seg Neutrophils # Man Lymphocytes # (Manual) Monocytes # (Manual) Eosinophils # (Manual) Basophils # (Manual) PT INR APTT ABG pH ABG pO2 94.3 H ABG HCO3 ABG O2 Saturation ABG Base Excess ABG Hemoglobin 9.5 L Oxyhemoglobin Sodium Potassium Chloride Carbon Dioxide BUN Creatinine Glucose POC Glucose 120 H 112 H Lactic Acid Calcium Ionized Calcium Phosphorus Magnesium Total Bilirubin AST ALT Alkaline Phosphatase Ammonia Total Creatine Kinase CK-MB (CK-2) CK-MB (CK-2) Rel Index Total Protein Albumin Urine WBC (Auto) Vancomycin Trough Salicylates Acetaminophen Plasma/Serum Alcohol Crossmatch 01/09/20 01/10/20 01/10/20 17:57 05:17 12:28 WBC RBC Hgb Hct MCH RDW Plt Count Lymph % (Auto) [place] % (Auto) [place] # Baso # Seg Neutrophils % Seg Neuts % (Manual) Lymphocytes % (Manual) Monocytes % (Manual) Seg Neutrophils # Seg Neutrophils # Man Lymphocytes # (Manual) Monocytes # (Manual) Eosinophils # (Manual) Basophils # (Manual) PT INR APTT ABG pH ABG pO2 ABG HCO3 ABG O2 Saturation ABG Base Excess ABG Hemoglobin Oxyhemoglobin Sodium Potassium Chloride Carbon Dioxide BUN Creatinine Glucose POC Glucose 122 H 115 H 116 H Lactic Acid Calcium Ionized Calcium Phosphorus Magnesium Total Bilirubin AST ALT Alkaline Phosphatase Ammonia Total Creatine Kinase CK-MB (CK-2) CK-MB (CK-2) Rel Index Total Protein Albumin Urine WBC (Auto) Vancomycin Trough Salicylates Acetaminophen Plasma/Serum Alcohol Crossmatch 01/10/20 01/10/20 01/11/20 18:25 23:47 06:05 WBC RBC Hgb Hct MCH RDW Plt Count Lymph % (Auto) [place] % (Auto) [place] # Baso # Seg Neutrophils % Seg Neuts % (Manual) Lymphocytes % (Manual) Monocytes % (Manual) Seg Neutrophils # Seg Neutrophils # Man Lymphocytes # (Manual) Monocytes # (Manual) Eosinophils # (Manual) Basophils # (Manual) PT INR APTT ABG pH ABG pO2 ABG HCO3 ABG O2 Saturation ABG Base Excess ABG Hemoglobin Oxyhemoglobin Sodium Potassium Chloride Carbon Dioxide BUN Creatinine Glucose POC Glucose 123 H 115 H 151 H Lactic Acid Calcium Ionized Calcium Phosphorus Magnesium Total Bilirubin AST ALT Alkaline Phosphatase Ammonia Total Creatine Kinase CK-MB (CK-2) CK-MB (CK-2) Rel Index Total Protein Albumin Urine WBC (Auto) Vancomycin Trough Salicylates Acetaminophen Plasma/Serum Alcohol Crossmatch 01/11/20 01/11/20 01/11/20 07:00 07:00 12:27 WBC 11.8 H RBC 3.40 L Hgb 9.4 L Hct 29.3 L MCH RDW 18.1 H Plt Count 549 H Lymph % (Auto) [place] % (Auto) 9.1 H [place] # 1.1 H Baso # Seg Neutrophils % 73.3 H Seg Neuts % (Manual) Lymphocytes % (Manual) Monocytes % (Manual) Seg Neutrophils # 8.7 H Seg Neutrophils # Man Lymphocytes # (Manual) Monocytes # (Manual) Eosinophils # (Manual) Basophils # (Manual) PT INR APTT ABG pH ABG pO2 ABG HCO3 ABG O2 Saturation ABG Base Excess ABG Hemoglobin Oxyhemoglobin Sodium 134 L Potassium Chloride 97.7 L Carbon Dioxide 21 L BUN 38 H Creatinine 0.5 L Glucose 168 H POC Glucose 117 H Lactic Acid Calcium 10.5 H Ionized Calcium Phosphorus Magnesium Total Bilirubin AST ALT Alkaline Phosphatase Ammonia Total Creatine Kinase CK-MB (CK-2) CK-MB (CK-2) Rel Index Total Protein Albumin Urine WBC (Auto) Vancomycin Trough Salicylates Acetaminophen Plasma/Serum Alcohol Crossmatch 01/11/20 01/12/20 01/12/20 18:19 00:53 05:24 WBC RBC Hgb Hct MCH RDW Plt Count Lymph % (Auto) [place] % (Auto) [place] # Baso # Seg Neutrophils % Seg Neuts % (Manual) Lymphocytes % (Manual) Monocytes % (Manual) Seg Neutrophils # Seg Neutrophils # Man Lymphocytes # (Manual) Monocytes # (Manual) Eosinophils # (Manual) Basophils # (Manual) PT INR APTT ABG pH ABG pO2 ABG HCO3 ABG O2 Saturation ABG Base Excess ABG Hemoglobin Oxyhemoglobin Sodium Potassium Chloride Carbon Dioxide BUN Creatinine Glucose POC Glucose 126 H 126 H 128 H Lactic Acid Calcium Ionized Calcium Phosphorus Magnesium Total Bilirubin AST ALT Alkaline Phosphatase Ammonia Total Creatine Kinase CK-MB (CK-2) CK-MB (CK-2) Rel Index Total Protein Albumin Urine WBC (Auto) Vancomycin Trough Salicylates Acetaminophen Plasma/Serum Alcohol Crossmatch 01/12/20 01/12/20 01/13/20 13:39 18:02 00:27 WBC RBC Hgb Hct MCH RDW Plt Count Lymph % (Auto) [place] % (Auto) [place] # Baso # Seg Neutrophils % Seg Neuts % (Manual) Lymphocytes % (Manual) Monocytes % (Manual) Seg Neutrophils # Seg Neutrophils # Man Lymphocytes # (Manual) Monocytes # (Manual) Eosinophils # (Manual) Basophils # (Manual) PT INR APTT ABG pH ABG pO2 ABG HCO3 ABG O2 Saturation ABG Base Excess ABG Hemoglobin Oxyhemoglobin Sodium Potassium Chloride Carbon Dioxide BUN Creatinine Glucose POC Glucose 146 H 125 H 131 H Lactic Acid Calcium Ionized Calcium Phosphorus Magnesium Total Bilirubin AST ALT Alkaline Phosphatase Ammonia Total Creatine Kinase CK-MB (CK-2) CK-MB (CK-2) Rel Index Total Protein Albumin Urine WBC (Auto) Vancomycin Trough Salicylates Acetaminophen Plasma/Serum Alcohol Crossmatch 01/13/20 01/13/20 01/13/20 05:44 11:54 17:18 WBC RBC Hgb Hct MCH RDW Plt Count Lymph % (Auto) [place] % (Auto) [place] # Baso # Seg Neutrophils % Seg Neuts % (Manual) Lymphocytes % (Manual) Monocytes % (Manual) Seg Neutrophils # Seg Neutrophils # Man Lymphocytes # (Manual) Monocytes # (Manual) Eosinophils # (Manual) Basophils # (Manual) PT INR APTT ABG pH ABG pO2 ABG HCO3 ABG O2 Saturation ABG Base Excess ABG Hemoglobin Oxyhemoglobin Sodium Potassium Chloride Carbon Dioxide BUN Creatinine Glucose POC Glucose 148 H 140 H 130 H Lactic Acid Calcium Ionized Calcium Phosphorus Magnesium Total Bilirubin AST ALT Alkaline Phosphatase Ammonia Total Creatine Kinase CK-MB (CK-2) CK-MB (CK-2) Rel Index Total Protein Albumin Urine WBC (Auto) Vancomycin Trough Salicylates Acetaminophen Plasma/Serum Alcohol Crossmatch 01/14/20 01/14/20 01/14/20 00:16 05:45 12:19 WBC RBC Hgb Hct MCH RDW Plt Count Lymph % (Auto) [place] % (Auto) [place] # Baso # Seg Neutrophils % Seg Neuts % (Manual) Lymphocytes % (Manual) Monocytes % (Manual) Seg Neutrophils # Seg Neutrophils # Man Lymphocytes # (Manual) Monocytes # (Manual) Eosinophils # (Manual) Basophils # (Manual) PT INR APTT ABG pH ABG pO2 ABG HCO3 ABG O2 Saturation ABG Base Excess ABG Hemoglobin Oxyhemoglobin Sodium Potassium Chloride Carbon Dioxide BUN Creatinine Glucose POC Glucose 125 H 146 H 147 H Lactic Acid Calcium Ionized Calcium Phosphorus Magnesium Total Bilirubin AST ALT Alkaline Phosphatase Ammonia Total Creatine Kinase CK-MB (CK-2) CK-MB (CK-2) Rel Index Total Protein Albumin Urine WBC (Auto) Vancomycin Trough Salicylates Acetaminophen Plasma/Serum Alcohol Crossmatch 01/14/20 01/14/20 01/15/20 18:10 23:54 05:14 WBC RBC Hgb Hct MCH RDW Plt Count Lymph % (Auto) [place] % (Auto) [place] # Baso # Seg Neutrophils % Seg Neuts % (Manual) Lymphocytes % (Manual) Monocytes % (Manual) Seg Neutrophils # Seg Neutrophils # Man Lymphocytes # (Manual) Monocytes # (Manual) Eosinophils # (Manual) Basophils # (Manual) PT INR APTT ABG pH ABG pO2 ABG HCO3 ABG O2 Saturation ABG Base Excess ABG Hemoglobin Oxyhemoglobin Sodium Potassium Chloride Carbon Dioxide BUN Creatinine Glucose POC Glucose 136 H 109 H 111 H Lactic Acid Calcium Ionized Calcium Phosphorus Magnesium Total Bilirubin AST ALT Alkaline Phosphatase Ammonia Total Creatine Kinase CK-MB (CK-2) CK-MB (CK-2) Rel Index Total Protein Albumin Urine WBC (Auto) Vancomycin Trough Salicylates Acetaminophen Plasma/Serum Alcohol Crossmatch 01/15/20 01/15/20 01/16/20 12:34 23:25 05:06 WBC RBC Hgb Hct MCH RDW Plt Count Lymph % (Auto) [place] % (Auto) [place] # Baso # Seg Neutrophils % Seg Neuts % (Manual) Lymphocytes % (Manual) Monocytes % (Manual) Seg Neutrophils # Seg Neutrophils # Man Lymphocytes # (Manual) Monocytes # (Manual) Eosinophils # (Manual) Basophils # (Manual) PT INR APTT ABG pH ABG pO2 ABG HCO3 ABG O2 Saturation ABG Base Excess ABG Hemoglobin Oxyhemoglobin Sodium Potassium Chloride Carbon Dioxide BUN Creatinine Glucose POC Glucose 131 H 120 H 121 H Lactic Acid Calcium Ionized Calcium Phosphorus Magnesium Total Bilirubin AST ALT Alkaline Phosphatase Ammonia Total Creatine Kinase CK-MB (CK-2) CK-MB (CK-2) Rel Index Total Protein Albumin Urine WBC (Auto) Vancomycin Trough Salicylates Acetaminophen Plasma/Serum Alcohol Crossmatch 01/16/20 01/16/20 01/17/20 12:15 23:46 05:32 WBC 13.6 H RBC 3.27 L Hgb 9.3 L Hct 28.5 L MCH RDW 17.0 H Plt Count 490 H Lymph % (Auto) 13.1 L [place] % (Auto) [place] # 1.0 H Baso # Seg Neutrophils % 77.5 H Seg Neuts % (Manual) Lymphocytes % (Manual) Monocytes % (Manual) Seg Neutrophils # 10.5 H Seg Neutrophils # Man Lymphocytes # (Manual) Monocytes # (Manual) Eosinophils # (Manual) Basophils # (Manual) PT INR APTT ABG pH ABG pO2 ABG HCO3 ABG O2 Saturation ABG Base Excess ABG Hemoglobin Oxyhemoglobin Sodium Potassium Chloride Carbon Dioxide BUN Creatinine Glucose POC Glucose 152 H 107 H Lactic Acid Calcium Ionized Calcium Phosphorus Magnesium Total Bilirubin AST ALT Alkaline Phosphatase Ammonia Total Creatine Kinase CK-MB (CK-2) CK-MB (CK-2) Rel Index Total Protein Albumin Urine WBC (Auto) Vancomycin Trough Salicylates Acetaminophen Plasma/Serum Alcohol Crossmatch 01/17/20 01/17/20 01/17/20 06:47 12:16 17:21 WBC RBC Hgb Hct MCH RDW Plt Count Lymph % (Auto) [place] % (Auto) [place] # Baso # Seg Neutrophils % Seg Neuts % (Manual) Lymphocytes % (Manual) Monocytes % (Manual) Seg Neutrophils # Seg Neutrophils # Man Lymphocytes # (Manual) Monocytes # (Manual) Eosinophils # (Manual) Basophils # (Manual) PT INR APTT ABG pH ABG pO2 ABG HCO3 ABG O2 Saturation ABG Base Excess ABG Hemoglobin Oxyhemoglobin Sodium Potassium Chloride Carbon Dioxide BUN Creatinine Glucose POC Glucose 112 H 145 H 150 H Lactic Acid Calcium Ionized Calcium Phosphorus Magnesium Total Bilirubin AST ALT Alkaline Phosphatase Ammonia Total Creatine Kinase CK-MB (CK-2) CK-MB (CK-2) Rel Index Total Protein Albumin Urine WBC (Auto) Vancomycin Trough Salicylates Acetaminophen Plasma/Serum Alcohol Crossmatch 01/17/20 01/18/20 01/18/20 23:34 05:47 12:43 WBC RBC Hgb Hct MCH RDW Plt Count Lymph % (Auto) [place] % (Auto) [place] # Baso # Seg Neutrophils % Seg Neuts % (Manual) Lymphocytes % (Manual) Monocytes % (Manual) Seg Neutrophils # Seg Neutrophils # Man Lymphocytes # (Manual) Monocytes # (Manual) Eosinophils # (Manual) Basophils # (Manual) PT INR APTT ABG pH ABG pO2 ABG HCO3 ABG O2 Saturation ABG Base Excess ABG Hemoglobin Oxyhemoglobin Sodium Potassium Chloride Carbon Dioxide BUN Creatinine Glucose POC Glucose 160 H 130 H 124 H Lactic Acid Calcium Ionized Calcium Phosphorus Magnesium Total Bilirubin AST ALT Alkaline Phosphatase Ammonia Total Creatine Kinase CK-MB (CK-2) CK-MB (CK-2) Rel Index Total Protein Albumin Urine WBC (Auto) Vancomycin Trough Salicylates Acetaminophen Plasma/Serum Alcohol Crossmatch 01/18/20 01/19/20 01/19/20 18:26 00:14 06:24 WBC RBC Hgb Hct MCH RDW Plt Count Lymph % (Auto) [place] % (Auto) [place] # Baso # Seg Neutrophils % Seg Neuts % (Manual) Lymphocytes % (Manual) Monocytes % (Manual) Seg Neutrophils # Seg Neutrophils # Man Lymphocytes # (Manual) Monocytes # (Manual) Eosinophils # (Manual) Basophils # (Manual) PT INR APTT ABG pH ABG pO2 ABG HCO3 ABG O2 Saturation ABG Base Excess ABG Hemoglobin Oxyhemoglobin Sodium Potassium Chloride Carbon Dioxide BUN Creatinine Glucose POC Glucose 119 H 114 H 144 H Lactic Acid Calcium Ionized Calcium Phosphorus Magnesium Total Bilirubin AST ALT Alkaline Phosphatase Ammonia Total Creatine Kinase CK-MB (CK-2) CK-MB (CK-2) Rel Index Total Protein Albumin Urine WBC (Auto) Vancomycin Trough Salicylates Acetaminophen Plasma/Serum Alcohol Crossmatch 01/19/20 01/19/20 01/20/20 12:24 17:50 12:06 WBC RBC Hgb Hct MCH RDW Plt Count Lymph % (Auto) [place] % (Auto) [place] # Baso # Seg Neutrophils % Seg Neuts % (Manual) Lymphocytes % (Manual) Monocytes % (Manual) Seg Neutrophils # Seg Neutrophils # Man Lymphocytes # (Manual) Monocytes # (Manual) Eosinophils # (Manual) Basophils # (Manual) PT INR APTT ABG pH ABG pO2 ABG HCO3 ABG O2 Saturation ABG Base Excess ABG Hemoglobin Oxyhemoglobin Sodium Potassium Chloride Carbon Dioxide BUN Creatinine Glucose POC Glucose 132 H 144 H 135 H Lactic Acid Calcium Ionized Calcium Phosphorus Magnesium Total Bilirubin AST ALT Alkaline Phosphatase Ammonia Total Creatine Kinase CK-MB (CK-2) CK-MB (CK-2) Rel Index Total Protein Albumin Urine WBC (Auto) Vancomycin Trough Salicylates Acetaminophen Plasma/Serum Alcohol Crossmatch 01/21/20 01/21/20 01/21/20 05:46 13:02 23:49 WBC RBC Hgb Hct MCH RDW Plt Count Lymph % (Auto) [place] % (Auto) [place] # Baso # Seg Neutrophils % Seg Neuts % (Manual) Lymphocytes % (Manual) Monocytes % (Manual) Seg Neutrophils # Seg Neutrophils # Man Lymphocytes # (Manual) Monocytes # (Manual) Eosinophils # (Manual) Basophils # (Manual) PT INR APTT ABG pH ABG pO2 ABG HCO3 ABG O2 Saturation ABG Base Excess ABG Hemoglobin Oxyhemoglobin Sodium Potassium Chloride Carbon Dioxide BUN Creatinine Glucose POC Glucose 114 H 136 H 120 H Lactic Acid Calcium Ionized Calcium Phosphorus Magnesium Total Bilirubin AST ALT Alkaline Phosphatase Ammonia Total Creatine Kinase CK-MB (CK-2) CK-MB (CK-2) Rel Index Total Protein Albumin Urine WBC (Auto) Vancomycin Trough Salicylates Acetaminophen Plasma/Serum Alcohol Crossmatch 01/22/20 01/22/20 01/22/20 05:41 11:44 16:31 WBC RBC Hgb Hct MCH RDW Plt Count Lymph % (Auto) [place] % (Auto) [place] # Baso # Seg Neutrophils % Seg Neuts % (Manual) Lymphocytes % (Manual) Monocytes % (Manual) Seg Neutrophils # Seg Neutrophils # Man Lymphocytes # (Manual) Monocytes # (Manual) Eosinophils # (Manual) Basophils # (Manual) PT INR APTT ABG pH ABG pO2 ABG HCO3 ABG O2 Saturation ABG Base Excess ABG Hemoglobin Oxyhemoglobin Sodium Potassium Chloride Carbon Dioxide BUN Creatinine Glucose POC Glucose 124 H 173 H 111 H Lactic Acid Calcium Ionized Calcium Phosphorus Magnesium Total Bilirubin AST ALT Alkaline Phosphatase Ammonia Total Creatine Kinase CK-MB (CK-2) CK-MB (CK-2) Rel Index Total Protein Albumin Urine WBC (Auto) Vancomycin Trough Salicylates Acetaminophen Plasma/Serum Alcohol Crossmatch 01/22/20 01/23/20 01/23/20 23:25 05:15 12:15 WBC RBC Hgb Hct MCH RDW Plt Count Lymph % (Auto) [place] % (Auto) [place] # Baso # Seg Neutrophils % Seg Neuts % (Manual) Lymphocytes % (Manual) Monocytes % (Manual) Seg Neutrophils # Seg Neutrophils # Man Lymphocytes # (Manual) Monocytes # (Manual) Eosinophils # (Manual) Basophils # (Manual) PT INR APTT ABG pH ABG pO2 ABG HCO3 ABG O2 Saturation ABG Base Excess ABG Hemoglobin Oxyhemoglobin Sodium Potassium Chloride Carbon Dioxide BUN Creatinine Glucose POC Glucose 134 H 117 H 129 H Lactic Acid Calcium Ionized Calcium Phosphorus Magnesium Total Bilirubin AST ALT Alkaline Phosphatase Ammonia Total Creatine Kinase CK-MB (CK-2) CK-MB (CK-2) Rel Index Total Protein Albumin Urine WBC (Auto) Vancomycin Trough Salicylates Acetaminophen Plasma/Serum Alcohol Crossmatch 01/23/20 01/23/20 01/23/20 16:58 21:17 23:47 WBC RBC Hgb Hct MCH RDW Plt Count Lymph % (Auto) [place] % (Auto) [place] # Baso # Seg Neutrophils % Seg Neuts % (Manual) Lymphocytes % (Manual) Monocytes % (Manual) Seg Neutrophils # Seg Neutrophils # Man Lymphocytes # (Manual) Monocytes # (Manual) Eosinophils # (Manual) Basophils # (Manual) PT INR APTT ABG pH ABG pO2 ABG HCO3 ABG O2 Saturation ABG Base Excess ABG Hemoglobin Oxyhemoglobin Sodium Potassium Chloride Carbon Dioxide BUN Creatinine Glucose POC Glucose 156 H 185 H 156 H Lactic Acid Calcium Ionized Calcium Phosphorus Magnesium Total Bilirubin AST ALT Alkaline Phosphatase Ammonia Total Creatine Kinase CK-MB (CK-2) CK-MB (CK-2) Rel Index Total Protein Albumin Urine WBC (Auto) Vancomycin Trough Salicylates Acetaminophen Plasma/Serum Alcohol Crossmatch 01/24/20 01/24/20 01/24/20 04:47 04:47 05:59 WBC 17.8 H RBC 3.60 L Hgb Hct MCH RDW 16.2 H Plt Count 688 H Lymph % (Auto) 11.8 L [place] % (Auto) 7.5 H [place] # 1.3 H Baso # Seg Neutrophils % 79.9 H Seg Neuts % (Manual) Lymphocytes % (Manual) Monocytes % (Manual) Seg Neutrophils # 14.2 H Seg Neutrophils # Man Lymphocytes # (Manual) Monocytes # (Manual) Eosinophils # (Manual) Basophils # (Manual) PT INR APTT ABG pH ABG pO2 ABG HCO3 ABG O2 Saturation ABG Base Excess ABG Hemoglobin Oxyhemoglobin Sodium 131 L Potassium Chloride 91.2 L Carbon Dioxide BUN 22 H Creatinine 0.3 L Glucose 123 H POC Glucose 147 H Lactic Acid Calcium 10.9 H Ionized Calcium Phosphorus Magnesium Total Bilirubin AST ALT Alkaline Phosphatase Ammonia Total Creatine Kinase CK-MB (CK-2) CK-MB (CK-2) Rel Index Total Protein Albumin Urine WBC (Auto) Vancomycin Trough Salicylates Acetaminophen Plasma/Serum Alcohol Crossmatch 01/24/20 01/24/20 01/25/20 11:47 16:45 00:18 WBC RBC Hgb Hct MCH RDW Plt Count Lymph % (Auto) [place] % (Auto) [place] # Baso # Seg Neutrophils % Seg Neuts % (Manual) Lymphocytes % (Manual) Monocytes % (Manual) Seg Neutrophils # Seg Neutrophils # Man Lymphocytes # (Manual) Monocytes # (Manual) Eosinophils # (Manual) Basophils # (Manual) PT INR APTT ABG pH ABG pO2 ABG HCO3 ABG O2 Saturation ABG Base Excess ABG Hemoglobin Oxyhemoglobin Sodium Potassium Chloride Carbon Dioxide BUN Creatinine Glucose POC Glucose 114 H 108 H 119 H Lactic Acid Calcium Ionized Calcium Phosphorus Magnesium Total Bilirubin AST ALT Alkaline Phosphatase Ammonia Total Creatine Kinase CK-MB (CK-2) CK-MB (CK-2) Rel Index Total Protein Albumin Urine WBC (Auto) Vancomycin Trough Salicylates Acetaminophen Plasma/Serum Alcohol Crossmatch 01/25/20 01/25/20 01/25/20 07:18 11:58 16:56 WBC RBC Hgb Hct MCH RDW Plt Count Lymph % (Auto) [place] % (Auto) [place] # Baso # Seg Neutrophils % Seg Neuts % (Manual) Lymphocytes % (Manual) Monocytes % (Manual) Seg Neutrophils # Seg Neutrophils # Man Lymphocytes # (Manual) Monocytes # (Manual) Eosinophils # (Manual) Basophils # (Manual) PT INR APTT ABG pH ABG pO2 ABG HCO3 ABG O2 Saturation ABG Base Excess ABG Hemoglobin Oxyhemoglobin Sodium Potassium Chloride Carbon Dioxide BUN Creatinine Glucose POC Glucose 136 H 136 H 147 H Lactic Acid Calcium Ionized Calcium Phosphorus Magnesium Total Bilirubin AST ALT Alkaline Phosphatase Ammonia Total Creatine Kinase CK-MB (CK-2) CK-MB (CK-2) Rel Index Total Protein Albumin Urine WBC (Auto) Vancomycin Trough Salicylates Acetaminophen Plasma/Serum Alcohol Crossmatch 01/26/20 01/26/20 01/26/20 00:29 05:59 05:59 WBC 12.8 H RBC Hgb Hct MCH RDW 16.4 H Plt Count 743 H Lymph % (Auto) [place] % (Auto) [place] # 0.9 H Baso # Seg Neutrophils % 76.2 H Seg Neuts % (Manual) Lymphocytes % (Manual) Monocytes % (Manual) Seg Neutrophils # 9.8 H Seg Neutrophils # Man Lymphocytes # (Manual) Monocytes # (Manual) Eosinophils # (Manual) Basophils # (Manual) PT INR APTT ABG pH ABG pO2 ABG HCO3 ABG O2 Saturation ABG Base Excess ABG Hemoglobin Oxyhemoglobin Sodium 132 L Potassium Chloride 90.9 L Carbon Dioxide BUN 23 H Creatinine 0.4 L Glucose 122 H POC Glucose 107 H Lactic Acid Calcium 11.0 H Ionized Calcium Phosphorus Magnesium Total Bilirubin AST ALT Alkaline Phosphatase Ammonia Total Creatine Kinase CK-MB (CK-2) CK-MB (CK-2) Rel Index Total Protein Albumin Urine WBC (Auto) Vancomycin Trough Salicylates Acetaminophen Plasma/Serum Alcohol Crossmatch 01/26/20 01/26/20 01/26/20 06:27 12:06 16:49 WBC RBC Hgb Hct MCH RDW Plt Count Lymph % (Auto) [place] % (Auto) [place] # Baso # Seg Neutrophils % Seg Neuts % (Manual) Lymphocytes % (Manual) Monocytes % (Manual) Seg Neutrophils # Seg Neutrophils # Man Lymphocytes # (Manual) Monocytes # (Manual) Eosinophils # (Manual) Basophils # (Manual) PT INR APTT ABG pH ABG pO2 ABG HCO3 ABG O2 Saturation ABG Base Excess ABG Hemoglobin Oxyhemoglobin Sodium Potassium Chloride Carbon Dioxide BUN Creatinine Glucose POC Glucose 132 H 132 H 110 H Lactic Acid Calcium Ionized Calcium Phosphorus Magnesium Total Bilirubin AST ALT Alkaline Phosphatase Ammonia Total Creatine Kinase CK-MB (CK-2) CK-MB (CK-2) Rel Index Total Protein Albumin Urine WBC (Auto) Vancomycin Trough Salicylates Acetaminophen Plasma/Serum Alcohol Crossmatch 01/27/20 01/27/20 01/27/20 00:08 11:49 16:24 WBC RBC Hgb Hct MCH RDW Plt Count Lymph % (Auto) [place] % (Auto) [place] # Baso # Seg Neutrophils % Seg Neuts % (Manual) Lymphocytes % (Manual) Monocytes % (Manual) Seg Neutrophils # Seg Neutrophils # Man Lymphocytes # (Manual) Monocytes # (Manual) Eosinophils # (Manual) Basophils # (Manual) PT INR APTT ABG pH ABG pO2 ABG HCO3 ABG O2 Saturation ABG Base Excess ABG Hemoglobin Oxyhemoglobin Sodium Potassium Chloride Carbon Dioxide BUN Creatinine Glucose POC Glucose 107 H 119 H 129 H Lactic Acid Calcium Ionized Calcium Phosphorus Magnesium Total Bilirubin AST ALT Alkaline Phosphatase Ammonia Total Creatine Kinase CK-MB (CK-2) CK-MB (CK-2) Rel Index Total Protein Albumin Urine WBC (Auto) Vancomycin Trough Salicylates Acetaminophen Plasma/Serum Alcohol Crossmatch 01/27/20 01/28/20 01/28/20 18:28 01:00 06:22 WBC RBC Hgb Hct MCH RDW Plt Count Lymph % (Auto) [place] % (Auto) [place] # Baso # Seg Neutrophils % Seg Neuts % (Manual) Lymphocytes % (Manual) Monocytes % (Manual) Seg Neutrophils # Seg Neutrophils # Man Lymphocytes # (Manual) Monocytes # (Manual) Eosinophils # (Manual) Basophils # (Manual) PT INR APTT ABG pH ABG pO2 ABG HCO3 ABG O2 Saturation ABG Base Excess ABG Hemoglobin Oxyhemoglobin Sodium Potassium Chloride Carbon Dioxide BUN Creatinine Glucose POC Glucose 126 H 121 H 114 H Lactic Acid Calcium Ionized Calcium Phosphorus Magnesium Total Bilirubin AST ALT Alkaline Phosphatase Ammonia Total Creatine Kinase CK-MB (CK-2) CK-MB (CK-2) Rel Index Total Protein Albumin Urine WBC (Auto) Vancomycin Trough Salicylates Acetaminophen Plasma/Serum Alcohol Crossmatch 01/28/20 01/28/20 01/29/20 11:47 18:00 00:05 WBC RBC Hgb Hct MCH RDW Plt Count Lymph % (Auto) [place] % (Auto) [place] # Baso # Seg Neutrophils % Seg Neuts % (Manual) Lymphocytes % (Manual) Monocytes % (Manual) Seg Neutrophils # Seg Neutrophils # Man Lymphocytes # (Manual) Monocytes # (Manual) Eosinophils # (Manual) Basophils # (Manual) PT INR APTT ABG pH ABG pO2 ABG HCO3 ABG O2 Saturation ABG Base Excess ABG Hemoglobin Oxyhemoglobin Sodium Potassium Chloride Carbon Dioxide BUN Creatinine Glucose POC Glucose 106 H 117 H 127 H Lactic Acid Calcium Ionized Calcium Phosphorus Magnesium Total Bilirubin AST ALT Alkaline Phosphatase Ammonia Total Creatine Kinase CK-MB (CK-2) CK-MB (CK-2) Rel Index Total Protein Albumin Urine WBC (Auto) Vancomycin Trough Salicylates Acetaminophen Plasma/Serum Alcohol Crossmatch 01/29/20 01/29/20 01/29/20 06:04 11:40 16:38 WBC RBC Hgb Hct MCH RDW Plt Count Lymph % (Auto) [place] % (Auto) [place] # Baso # Seg Neutrophils % Seg Neuts % (Manual) Lymphocytes % (Manual) Monocytes % (Manual) Seg Neutrophils # Seg Neutrophils # Man Lymphocytes # (Manual) Monocytes # (Manual) Eosinophils # (Manual) Basophils # (Manual) PT INR APTT ABG pH ABG pO2 ABG HCO3 ABG O2 Saturation ABG Base Excess ABG Hemoglobin Oxyhemoglobin Sodium Potassium Chloride Carbon Dioxide BUN Creatinine Glucose POC Glucose 147 H 139 H 143 H Lactic Acid Calcium Ionized Calcium Phosphorus Magnesium Total Bilirubin AST ALT Alkaline Phosphatase Ammonia Total Creatine Kinase CK-MB (CK-2) CK-MB (CK-2) Rel Index Total Protein Albumin Urine WBC (Auto) Vancomycin Trough Salicylates Acetaminophen Plasma/Serum Alcohol Crossmatch 01/29/20 01/30/20 01/30/20 23:46 06:43 12:07 WBC RBC Hgb Hct MCH RDW Plt Count Lymph % (Auto) [place] % (Auto) [place] # Baso # Seg Neutrophils % Seg Neuts % (Manual) Lymphocytes % (Manual) Monocytes % (Manual) Seg Neutrophils # Seg Neutrophils # Man Lymphocytes # (Manual) Monocytes # (Manual) Eosinophils # (Manual) Basophils # (Manual) PT INR APTT ABG pH ABG pO2 ABG HCO3 ABG O2 Saturation ABG Base Excess ABG Hemoglobin Oxyhemoglobin Sodium Potassium Chloride Carbon Dioxide BUN Creatinine Glucose POC Glucose 122 H 122 H 134 H Lactic Acid Calcium Ionized Calcium Phosphorus Magnesium Total Bilirubin AST ALT Alkaline Phosphatase Ammonia Total Creatine Kinase CK-MB (CK-2) CK-MB (CK-2) Rel Index Total Protein Albumin Urine WBC (Auto) Vancomycin Trough Salicylates Acetaminophen Plasma/Serum Alcohol Crossmatch 01/30/20 01/31/20 01/31/20 17:59 00:52 05:54 WBC RBC Hgb Hct MCH RDW Plt Count Lymph % (Auto) [place] % (Auto) [place] # Baso # Seg Neutrophils % Seg Neuts % (Manual) Lymphocytes % (Manual) Monocytes % (Manual) Seg Neutrophils # Seg Neutrophils # Man Lymphocytes # (Manual) Monocytes # (Manual) Eosinophils # (Manual) Basophils # (Manual) PT INR APTT ABG pH ABG pO2 ABG HCO3 ABG O2 Saturation ABG Base Excess ABG Hemoglobin Oxyhemoglobin Sodium Potassium Chloride Carbon Dioxide BUN Creatinine Glucose POC Glucose 116 H 127 H 127 H Lactic Acid Calcium Ionized Calcium Phosphorus Magnesium Total Bilirubin AST ALT Alkaline Phosphatase Ammonia Total Creatine Kinase CK-MB (CK-2) CK-MB (CK-2) Rel Index Total Protein Albumin Urine WBC (Auto) Vancomycin Trough Salicylates Acetaminophen Plasma/Serum Alcohol Crossmatch 01/31/20 02/01/20 02/01/20 12:20 00:48 12:21 WBC RBC Hgb Hct MCH RDW Plt Count Lymph % (Auto) [place] % (Auto) [place] # Baso # Seg Neutrophils % Seg Neuts % (Manual) Lymphocytes % (Manual) Monocytes % (Manual) Seg Neutrophils # Seg Neutrophils # Man Lymphocytes # (Manual) Monocytes # (Manual) Eosinophils # (Manual) Basophils # (Manual) PT INR APTT ABG pH ABG pO2 ABG HCO3 ABG O2 Saturation ABG Base Excess ABG Hemoglobin Oxyhemoglobin Sodium Potassium Chloride Carbon Dioxide BUN Creatinine Glucose POC Glucose 126 H 154 H 123 H Lactic Acid Calcium Ionized Calcium Phosphorus Magnesium Total Bilirubin AST ALT Alkaline Phosphatase Ammonia Total Creatine Kinase CK-MB (CK-2) CK-MB (CK-2) Rel Index Total Protein Albumin Urine WBC (Auto) Vancomycin Trough Salicylates Acetaminophen Plasma/Serum Alcohol Crossmatch 02/01/20 02/02/20 02/02/20 23:58 06:08 11:50 WBC RBC Hgb Hct MCH RDW Plt Count Lymph % (Auto) [place] % (Auto) [place] # Baso # Seg Neutrophils % Seg Neuts % (Manual) Lymphocytes % (Manual) Monocytes % (Manual) Seg Neutrophils # Seg Neutrophils # Man Lymphocytes # (Manual) Monocytes # (Manual) Eosinophils # (Manual) Basophils # (Manual) PT INR APTT ABG pH ABG pO2 ABG HCO3 ABG O2 Saturation ABG Base Excess ABG Hemoglobin Oxyhemoglobin Sodium Potassium Chloride Carbon Dioxide BUN Creatinine Glucose POC Glucose 125 H 144 H 131 H Lactic Acid Calcium Ionized Calcium Phosphorus Magnesium Total Bilirubin AST ALT Alkaline Phosphatase Ammonia Total Creatine Kinase CK-MB (CK-2) CK-MB (CK-2) Rel Index Total Protein Albumin Urine WBC (Auto) Vancomycin Trough Salicylates Acetaminophen Plasma/Serum Alcohol Crossmatch 02/02/20 02/03/20 02/03/20 17:53 00:14 05:47 WBC RBC Hgb Hct MCH RDW Plt Count Lymph % (Auto) [place] % (Auto) [place] # Baso # Seg Neutrophils % Seg Neuts % (Manual) Lymphocytes % (Manual) Monocytes % (Manual) Seg Neutrophils # Seg Neutrophils # Man Lymphocytes # (Manual) Monocytes # (Manual) Eosinophils # (Manual) Basophils # (Manual) PT INR APTT ABG pH ABG pO2 ABG HCO3 ABG O2 Saturation ABG Base Excess ABG Hemoglobin Oxyhemoglobin Sodium Potassium Chloride Carbon Dioxide BUN Creatinine Glucose POC Glucose 108 H 122 H 118 H Lactic Acid Calcium Ionized Calcium Phosphorus Magnesium Total Bilirubin AST ALT Alkaline Phosphatase Ammonia Total Creatine Kinase CK-MB (CK-2) CK-MB (CK-2) Rel Index Total Protein Albumin Urine WBC (Auto) Vancomycin Trough Salicylates Acetaminophen Plasma/Serum Alcohol Crossmatch 02/03/20 02/03/20 02/03/20 05:59 05:59 11:49 WBC RBC 3.48 L Hgb Hct 29.9 L MCH RDW 16.2 H Plt Count 707 H Lymph % (Auto) [place] % (Auto) 9.3 H [place] # 0.9 H Baso # Seg Neutrophils % Seg Neuts % (Manual) Lymphocytes % (Manual) Monocytes % (Manual) Seg Neutrophils # Seg Neutrophils # Man Lymphocytes # (Manual) Monocytes # (Manual) Eosinophils # (Manual) Basophils # (Manual) PT INR APTT ABG pH ABG pO2 ABG HCO3 ABG O2 Saturation ABG Base Excess ABG Hemoglobin Oxyhemoglobin Sodium 136 L Potassium Chloride 93.4 L Carbon Dioxide BUN 20 H Creatinine 0.5 L Glucose 101 H POC Glucose 133 H Lactic Acid Calcium 10.8 H Ionized Calcium Phosphorus Magnesium Total Bilirubin AST ALT Alkaline Phosphatase Ammonia Total Creatine Kinase CK-MB (CK-2) CK-MB (CK-2) Rel Index Total Protein Albumin Urine WBC (Auto) Vancomycin Trough Salicylates Acetaminophen Plasma/Serum Alcohol Crossmatch 02/03/20 02/04/20 02/04/20 23:19 05:37 23:56 WBC RBC Hgb Hct MCH RDW Plt Count Lymph % (Auto) [place] % (Auto) [place] # Baso # Seg Neutrophils % Seg Neuts % (Manual) Lymphocytes % (Manual) Monocytes % (Manual) Seg Neutrophils # Seg Neutrophils # Man Lymphocytes # (Manual) Monocytes # (Manual) Eosinophils # (Manual) Basophils # (Manual) PT INR APTT ABG pH ABG pO2 ABG HCO3 ABG O2 Saturation ABG Base Excess ABG Hemoglobin Oxyhemoglobin Sodium Potassium Chloride Carbon Dioxide BUN Creatinine Glucose POC Glucose 135 H 108 H 158 H Lactic Acid Calcium Ionized Calcium Phosphorus Magnesium Total Bilirubin AST ALT Alkaline Phosphatase Ammonia Total Creatine Kinase CK-MB (CK-2) CK-MB (CK-2) Rel Index Total Protein Albumin Urine WBC (Auto) Vancomycin Trough Salicylates Acetaminophen Plasma/Serum Alcohol Crossmatch 02/05/20 02/05/20 02/06/20 05:33 23:24 05:50 WBC RBC Hgb Hct MCH RDW Plt Count Lymph % (Auto) [place] % (Auto) [place] # Baso # Seg Neutrophils % Seg Neuts % (Manual) Lymphocytes % (Manual) Monocytes % (Manual) Seg Neutrophils # Seg Neutrophils # Man Lymphocytes # (Manual) Monocytes # (Manual) Eosinophils # (Manual) Basophils # (Manual) PT INR APTT ABG pH ABG pO2 ABG HCO3 ABG O2 Saturation ABG Base Excess ABG Hemoglobin Oxyhemoglobin Sodium Potassium Chloride Carbon Dioxide BUN Creatinine Glucose POC Glucose 152 H 158 H 110 H Lactic Acid Calcium Ionized Calcium Phosphorus Magnesium Total Bilirubin AST ALT Alkaline Phosphatase Ammonia Total Creatine Kinase CK-MB (CK-2) CK-MB (CK-2) Rel Index Total Protein Albumin Urine WBC (Auto) Vancomycin Trough Salicylates Acetaminophen Plasma/Serum Alcohol Crossmatch 02/06/20 02/07/20 02/07/20 16:03 00:13 05:27 WBC RBC Hgb Hct MCH RDW Plt Count Lymph % (Auto) [place] % (Auto) [place] # Baso # Seg Neutrophils % Seg Neuts % (Manual) Lymphocytes % (Manual) Monocytes % (Manual) Seg Neutrophils # Seg Neutrophils # Man Lymphocytes # (Manual) Monocytes # (Manual) Eosinophils # (Manual) Basophils # (Manual) PT INR APTT ABG pH ABG pO2 ABG HCO3 ABG O2 Saturation ABG Base Excess ABG Hemoglobin Oxyhemoglobin Sodium Potassium Chloride Carbon Dioxide BUN Creatinine Glucose POC Glucose 130 H 115 H 115 H Lactic Acid Calcium Ionized Calcium Phosphorus Magnesium Total Bilirubin AST ALT Alkaline Phosphatase Ammonia Total Creatine Kinase CK-MB (CK-2) CK-MB (CK-2) Rel Index Total Protein Albumin Urine WBC (Auto) Vancomycin Trough Salicylates Acetaminophen Plasma/Serum Alcohol Crossmatch 02/07/20 02/07/20 02/08/20 11:42 17:23 00:37 WBC RBC Hgb Hct MCH RDW Plt Count Lymph % (Auto) [place] % (Auto) [place] # Baso # Seg Neutrophils % Seg Neuts % (Manual) Lymphocytes % (Manual) Monocytes % (Manual) Seg Neutrophils # Seg Neutrophils # Man Lymphocytes # (Manual) Monocytes # (Manual) Eosinophils # (Manual) Basophils # (Manual) PT INR APTT ABG pH ABG pO2 ABG HCO3 ABG O2 Saturation ABG Base Excess ABG Hemoglobin Oxyhemoglobin Sodium Potassium Chloride Carbon Dioxide BUN Creatinine Glucose POC Glucose 113 H 114 H 136 H Lactic Acid Calcium Ionized Calcium Phosphorus Magnesium Total Bilirubin AST ALT Alkaline Phosphatase Ammonia Total Creatine Kinase CK-MB (CK-2) CK-MB (CK-2) Rel Index Total Protein Albumin Urine WBC (Auto) Vancomycin Trough Salicylates Acetaminophen Plasma/Serum Alcohol Crossmatch 02/08/20 02/08/20 02/08/20 08:52 11:42 17:02 WBC RBC Hgb Hct MCH RDW Plt Count Lymph % (Auto) [place] % (Auto) [place] # Baso # Seg Neutrophils % Seg Neuts % (Manual) Lymphocytes % (Manual) Monocytes % (Manual) Seg Neutrophils # Seg Neutrophils # Man Lymphocytes # (Manual) Monocytes # (Manual) Eosinophils # (Manual) Basophils # (Manual) PT INR APTT ABG pH ABG pO2 ABG HCO3 ABG O2 Saturation ABG Base Excess ABG Hemoglobin Oxyhemoglobin Sodium 136 L Potassium Chloride 95.7 L Carbon Dioxide BUN 21 H Creatinine 0.4 L Glucose POC Glucose 128 H 145 H Lactic Acid Calcium 10.4 H Ionized Calcium Phosphorus Magnesium Total Bilirubin AST ALT Alkaline Phosphatase Ammonia Total Creatine Kinase CK-MB (CK-2) CK-MB (CK-2) Rel Index Total Protein Albumin Urine WBC (Auto) Vancomycin Trough Salicylates Acetaminophen Plasma/Serum Alcohol Crossmatch 02/09/20 02/09/20 02/09/20 01:05 11:52 16:19 WBC RBC Hgb Hct MCH RDW Plt Count Lymph % (Auto) [place] % (Auto) [place] # Baso # Seg Neutrophils % Seg Neuts % (Manual) Lymphocytes % (Manual) Monocytes % (Manual) Seg Neutrophils # Seg Neutrophils # Man Lymphocytes # (Manual) Monocytes # (Manual) Eosinophils # (Manual) Basophils # (Manual) PT INR APTT ABG pH ABG pO2 ABG HCO3 ABG O2 Saturation ABG Base Excess ABG Hemoglobin Oxyhemoglobin Sodium Potassium Chloride Carbon Dioxide BUN Creatinine Glucose POC Glucose 117 H 141 H 113 H Lactic Acid Calcium Ionized Calcium Phosphorus Magnesium Total Bilirubin AST ALT Alkaline Phosphatase Ammonia Total Creatine Kinase CK-MB (CK-2) CK-MB (CK-2) Rel Index Total Protein Albumin Urine WBC (Auto) Vancomycin Trough Salicylates Acetaminophen Plasma/Serum Alcohol Crossmatch 02/10/20 02/10/20 02/10/20 05:25 12:50 17:08 WBC RBC Hgb Hct MCH RDW Plt Count Lymph % (Auto) [place] % (Auto) [place] # Baso # Seg Neutrophils % Seg Neuts % (Manual) Lymphocytes % (Manual) Monocytes % (Manual) Seg Neutrophils # Seg Neutrophils # Man Lymphocytes # (Manual) Monocytes # (Manual) Eosinophils # (Manual) Basophils # (Manual) PT INR APTT ABG pH ABG pO2 ABG HCO3 ABG O2 Saturation ABG Base Excess ABG Hemoglobin Oxyhemoglobin Sodium Potassium Chloride Carbon Dioxide BUN Creatinine Glucose POC Glucose 136 H 127 H 111 H Lactic Acid Calcium Ionized Calcium Phosphorus Magnesium Total Bilirubin AST ALT Alkaline Phosphatase Ammonia Total Creatine Kinase CK-MB (CK-2) CK-MB (CK-2) Rel Index Total Protein Albumin Urine WBC (Auto) Vancomycin Trough Salicylates Acetaminophen Plasma/Serum Alcohol Crossmatch 02/10/20 02/11/20 02/11/20 23:55 06:11 12:07 WBC RBC Hgb Hct MCH RDW Plt Count Lymph % (Auto) [place] % (Auto) [place] # Baso # Seg Neutrophils % Seg Neuts % (Manual) Lymphocytes % (Manual) Monocytes % (Manual) Seg Neutrophils # Seg Neutrophils # Man Lymphocytes # (Manual) Monocytes # (Manual) Eosinophils # (Manual) Basophils # (Manual) PT INR APTT ABG pH ABG pO2 ABG HCO3 ABG O2 Saturation ABG Base Excess ABG Hemoglobin Oxyhemoglobin Sodium Potassium Chloride Carbon Dioxide BUN Creatinine Glucose POC Glucose 129 H 128 H 141 H Lactic Acid Calcium Ionized Calcium Phosphorus Magnesium Total Bilirubin AST ALT Alkaline Phosphatase Ammonia Total Creatine Kinase CK-MB (CK-2) CK-MB (CK-2) Rel Index Total Protein Albumin Urine WBC (Auto) Vancomycin Trough Salicylates Acetaminophen Plasma/Serum Alcohol Crossmatch 02/11/20 02/12/20 02/13/20 18:22 02:39 06:45 WBC RBC Hgb Hct MCH RDW Plt Count Lymph % (Auto) [place] % (Auto) [place] # Baso # Seg Neutrophils % Seg Neuts % (Manual) Lymphocytes % (Manual) Monocytes % (Manual) Seg Neutrophils # Seg Neutrophils # Man Lymphocytes # (Manual) Monocytes # (Manual) Eosinophils # (Manual) Basophils # (Manual) PT INR APTT ABG pH ABG pO2 ABG HCO3 ABG O2 Saturation ABG Base Excess ABG Hemoglobin Oxyhemoglobin Sodium Potassium Chloride Carbon Dioxide BUN Creatinine Glucose POC Glucose 118 H 107 H 124 H Lactic Acid Calcium Ionized Calcium Phosphorus Magnesium Total Bilirubin AST ALT Alkaline Phosphatase Ammonia Total Creatine Kinase CK-MB (CK-2) CK-MB (CK-2) Rel Index Total Protein Albumin Urine WBC (Auto) Vancomycin Trough Salicylates Acetaminophen Plasma/Serum Alcohol Crossmatch 02/13/20 02/13/20 02/14/20 12:26 18:19 00:21 WBC RBC Hgb Hct MCH RDW Plt Count Lymph % (Auto) [place] % (Auto) [place] # Baso # Seg Neutrophils % Seg Neuts % (Manual) Lymphocytes % (Manual) Monocytes % (Manual) Seg Neutrophils # Seg Neutrophils # Man Lymphocytes # (Manual) Monocytes # (Manual) Eosinophils # (Manual) Basophils # (Manual) PT INR APTT ABG pH ABG pO2 ABG HCO3 ABG O2 Saturation ABG Base Excess ABG Hemoglobin Oxyhemoglobin Sodium Potassium Chloride Carbon Dioxide BUN Creatinine Glucose POC Glucose 124 H 118 H 130 H Lactic Acid Calcium Ionized Calcium Phosphorus Magnesium Total Bilirubin AST ALT Alkaline Phosphatase Ammonia Total Creatine Kinase CK-MB (CK-2) CK-MB (CK-2) Rel Index Total Protein Albumin Urine WBC (Auto) Vancomycin Trough Salicylates Acetaminophen Plasma/Serum Alcohol Crossmatch 02/14/20 02/14/20 02/16/20 11:19 16:16 00:58 WBC RBC Hgb Hct MCH RDW Plt Count Lymph % (Auto) [place] % (Auto) [place] # Baso # Seg Neutrophils % Seg Neuts % (Manual) Lymphocytes % (Manual) Monocytes % (Manual) Seg Neutrophils # Seg Neutrophils # Man Lymphocytes # (Manual) Monocytes # (Manual) Eosinophils # (Manual) Basophils # (Manual) PT INR APTT ABG pH ABG pO2 ABG HCO3 ABG O2 Saturation ABG Base Excess ABG Hemoglobin Oxyhemoglobin Sodium Potassium Chloride Carbon Dioxide BUN Creatinine Glucose POC Glucose 135 H 119 H 121 H Lactic Acid Calcium Ionized Calcium Phosphorus Magnesium Total Bilirubin AST ALT Alkaline Phosphatase Ammonia Total Creatine Kinase CK-MB (CK-2) CK-MB (CK-2) Rel Index Total Protein Albumin Urine WBC (Auto) Vancomycin Trough Salicylates Acetaminophen Plasma/Serum Alcohol Crossmatch 02/16/20 02/16/20 02/16/20 12:12 18:22 23:51 WBC RBC Hgb Hct MCH RDW Plt Count Lymph % (Auto) [place] % (Auto) [place] # Baso # Seg Neutrophils % Seg Neuts % (Manual) Lymphocytes % (Manual) Monocytes % (Manual) Seg Neutrophils # Seg Neutrophils # Man Lymphocytes # (Manual) Monocytes # (Manual) Eosinophils # (Manual) Basophils # (Manual) PT INR APTT ABG pH ABG pO2 ABG HCO3 ABG O2 Saturation ABG Base Excess ABG Hemoglobin Oxyhemoglobin Sodium Potassium Chloride Carbon Dioxide BUN Creatinine Glucose POC Glucose 107 H 106 H 128 H Lactic Acid Calcium Ionized Calcium Phosphorus Magnesium Total Bilirubin AST ALT Alkaline Phosphatase Ammonia Total Creatine Kinase CK-MB (CK-2) CK-MB (CK-2) Rel Index Total Protein Albumin Urine WBC (Auto) Vancomycin Trough Salicylates Acetaminophen Plasma/Serum Alcohol Crossmatch 02/17/20 02/17/20 02/17/20 05:50 07:57 07:57 WBC 12.6 H RBC 3.52 L Hgb Hct MCH RDW 15.3 H Plt Count 643 H Lymph % (Auto) [place] % (Auto) 8.0 H [place] # 1.0 H Baso # Seg Neutrophils % Seg Neuts % (Manual) Lymphocytes % (Manual) Monocytes % (Manual) Seg Neutrophils # 8.5 H Seg Neutrophils # Man Lymphocytes # (Manual) Monocytes # (Manual) Eosinophils # (Manual) Basophils # (Manual) PT INR APTT ABG pH ABG pO2 ABG HCO3 ABG O2 Saturation ABG Base Excess ABG Hemoglobin Oxyhemoglobin Sodium Potassium Chloride 96.9 L Carbon Dioxide BUN 21 H Creatinine 0.4 L Glucose 113 H POC Glucose 116 H Lactic Acid Calcium 10.5 H Ionized Calcium Phosphorus Magnesium Total Bilirubin AST ALT Alkaline Phosphatase Ammonia Total Creatine Kinase CK-MB (CK-2) CK-MB (CK-2) Rel Index Total Protein Albumin Urine WBC (Auto) Vancomycin Trough Salicylates Acetaminophen Plasma/Serum Alcohol Crossmatch 02/17/20 02/17/20 02/18/20 12:05 18:16 00:13 WBC RBC Hgb Hct MCH RDW Plt Count Lymph % (Auto) [place] % (Auto) [place] # Baso # Seg Neutrophils % Seg Neuts % (Manual) Lymphocytes % (Manual) Monocytes % (Manual) Seg Neutrophils # Seg Neutrophils # Man Lymphocytes # (Manual) Monocytes # (Manual) Eosinophils # (Manual) Basophils # (Manual) PT INR APTT ABG pH ABG pO2 ABG HCO3 ABG O2 Saturation ABG Base Excess ABG Hemoglobin Oxyhemoglobin Sodium Potassium Chloride Carbon Dioxide BUN Creatinine Glucose POC Glucose 139 H 127 H 144 H Lactic Acid Calcium Ionized Calcium Phosphorus Magnesium Total Bilirubin AST ALT Alkaline Phosphatase Ammonia Total Creatine Kinase CK-MB (CK-2) CK-MB (CK-2) Rel Index Total Protein Albumin Urine WBC (Auto) Vancomycin Trough Salicylates Acetaminophen Plasma/Serum Alcohol Crossmatch 02/18/20 02/18/20 02/19/20 17:41 23:28 05:17 WBC RBC Hgb Hct MCH RDW Plt Count Lymph % (Auto) [place] % (Auto) [place] # Baso # Seg Neutrophils % Seg Neuts % (Manual) Lymphocytes % (Manual) Monocytes % (Manual) Seg Neutrophils # Seg Neutrophils # Man Lymphocytes # (Manual) Monocytes # (Manual) Eosinophils # (Manual) Basophils # (Manual) PT INR APTT ABG pH ABG pO2 ABG HCO3 ABG O2 Saturation ABG Base Excess ABG Hemoglobin Oxyhemoglobin Sodium Potassium Chloride Carbon Dioxide BUN Creatinine Glucose POC Glucose 118 H 166 H 116 H Lactic Acid Calcium Ionized Calcium Phosphorus Magnesium Total Bilirubin AST ALT Alkaline Phosphatase Ammonia Total Creatine Kinase CK-MB (CK-2) CK-MB (CK-2) Rel Index Total Protein Albumin Urine WBC (Auto) Vancomycin Trough Salicylates Acetaminophen Plasma/Serum Alcohol Crossmatch 02/19/20 02/19/20 02/20/20 12:33 17:02 00:12 WBC RBC Hgb Hct MCH RDW Plt Count Lymph % (Auto) [place] % (Auto) [place] # Baso # Seg Neutrophils % Seg Neuts % (Manual) Lymphocytes % (Manual) Monocytes % (Manual) Seg Neutrophils # Seg Neutrophils # Man Lymphocytes # (Manual) Monocytes # (Manual) Eosinophils # (Manual) Basophils # (Manual) PT INR APTT ABG pH ABG pO2 ABG HCO3 ABG O2 Saturation ABG Base Excess ABG Hemoglobin Oxyhemoglobin Sodium Potassium Chloride Carbon Dioxide BUN Creatinine Glucose POC Glucose 115 H 108 H 153 H Lactic Acid Calcium Ionized Calcium Phosphorus Magnesium Total Bilirubin AST ALT Alkaline Phosphatase Ammonia Total Creatine Kinase CK-MB (CK-2) CK-MB (CK-2) Rel Index Total Protein Albumin Urine WBC (Auto) Vancomycin Trough Salicylates Acetaminophen Plasma/Serum Alcohol Crossmatch 02/20/20 02/20/20 02/21/20 12:00 23:13 05:07 WBC RBC Hgb Hct MCH RDW Plt Count Lymph % (Auto) [place] % (Auto) [place] # Baso # Seg Neutrophils % Seg Neuts % (Manual) Lymphocytes % (Manual) Monocytes % (Manual) Seg Neutrophils # Seg Neutrophils # Man Lymphocytes # (Manual) Monocytes # (Manual) Eosinophils # (Manual) Basophils # (Manual) PT INR APTT ABG pH ABG pO2 ABG HCO3 ABG O2 Saturation ABG Base Excess ABG Hemoglobin Oxyhemoglobin Sodium Potassium Chloride Carbon Dioxide BUN Creatinine Glucose POC Glucose 171 H 129 H 116 H Lactic Acid Calcium Ionized Calcium Phosphorus Magnesium Total Bilirubin AST ALT Alkaline Phosphatase Ammonia Total Creatine Kinase CK-MB (CK-2) CK-MB (CK-2) Rel Index Total Protein Albumin Urine WBC (Auto) Vancomycin Trough Salicylates Acetaminophen Plasma/Serum Alcohol Crossmatch 02/21/20 02/22/20 02/22/20 12:15 00:42 06:30 WBC RBC Hgb Hct MCH RDW Plt Count Lymph % (Auto) [place] % (Auto) [place] # Baso # Seg Neutrophils % Seg Neuts % (Manual) Lymphocytes % (Manual) Monocytes % (Manual) Seg Neutrophils # Seg Neutrophils # Man Lymphocytes # (Manual) Monocytes # (Manual) Eosinophils # (Manual) Basophils # (Manual) PT INR APTT ABG pH ABG pO2 ABG HCO3 ABG O2 Saturation ABG Base Excess ABG Hemoglobin Oxyhemoglobin Sodium Potassium Chloride Carbon Dioxide BUN Creatinine Glucose POC Glucose 124 H 142 H 117 H Lactic Acid Calcium Ionized Calcium Phosphorus Magnesium Total Bilirubin AST ALT Alkaline Phosphatase Ammonia Total Creatine Kinase CK-MB (CK-2) CK-MB (CK-2) Rel Index Total Protein Albumin Urine WBC (Auto) Vancomycin Trough Salicylates Acetaminophen Plasma/Serum Alcohol Crossmatch 02/22/20 02/22/20 02/23/20 12:20 17:55 12:46 WBC RBC Hgb Hct MCH RDW Plt Count Lymph % (Auto) [place] % (Auto) [place] # Baso # Seg Neutrophils % Seg Neuts % (Manual) Lymphocytes % (Manual) Monocytes % (Manual) Seg Neutrophils # Seg Neutrophils # Man Lymphocytes # (Manual) Monocytes # (Manual) Eosinophils # (Manual) Basophils # (Manual) PT INR APTT ABG pH ABG pO2 ABG HCO3 ABG O2 Saturation ABG Base Excess ABG Hemoglobin Oxyhemoglobin Sodium Potassium Chloride Carbon Dioxide BUN Creatinine Glucose POC Glucose 121 H 157 H 112 H Lactic Acid Calcium Ionized Calcium Phosphorus Magnesium Total Bilirubin AST ALT Alkaline Phosphatase Ammonia Total Creatine Kinase CK-MB (CK-2) CK-MB (CK-2) Rel Index Total Protein Albumin Urine WBC (Auto) Vancomycin Trough Salicylates Acetaminophen Plasma/Serum Alcohol Crossmatch 02/23/20 02/24/20 02/24/20 16:47 00:38 07:00 WBC RBC Hgb Hct MCH RDW Plt Count Lymph % (Auto) [place] % (Auto) [place] # Baso # Seg Neutrophils % Seg Neuts % (Manual) Lymphocytes % (Manual) Monocytes % (Manual) Seg Neutrophils # Seg Neutrophils # Man Lymphocytes # (Manual) Monocytes # (Manual) Eosinophils # (Manual) Basophils # (Manual) PT INR APTT ABG pH ABG pO2 ABG HCO3 ABG O2 Saturation ABG Base Excess ABG Hemoglobin Oxyhemoglobin Sodium Potassium Chloride Carbon Dioxide BUN Creatinine Glucose POC Glucose 142 H 138 H 118 H Lactic Acid Calcium Ionized Calcium Phosphorus Magnesium Total Bilirubin AST ALT Alkaline Phosphatase Ammonia Total Creatine Kinase CK-MB (CK-2) CK-MB (CK-2) Rel Index Total Protein Albumin Urine WBC (Auto) Vancomycin Trough Salicylates Acetaminophen Plasma/Serum Alcohol Crossmatch 02/24/20 02/24/20 02/25/20 11:41 18:33 18:24 WBC RBC Hgb Hct MCH RDW Plt Count Lymph % (Auto) [place] % (Auto) [place] # Baso # Seg Neutrophils % Seg Neuts % (Manual) Lymphocytes % (Manual) Monocytes % (Manual) Seg Neutrophils # Seg Neutrophils # Man Lymphocytes # (Manual) Monocytes # (Manual) Eosinophils # (Manual) Basophils # (Manual) PT INR APTT ABG pH ABG pO2 ABG HCO3 ABG O2 Saturation ABG Base Excess ABG Hemoglobin Oxyhemoglobin Sodium Potassium Chloride Carbon Dioxide BUN Creatinine Glucose POC Glucose 152 H 126 H 120 H Lactic Acid Calcium Ionized Calcium Phosphorus Magnesium Total Bilirubin AST ALT Alkaline Phosphatase Ammonia Total Creatine Kinase CK-MB (CK-2) CK-MB (CK-2) Rel Index Total Protein Albumin Urine WBC (Auto) Vancomycin Trough Salicylates Acetaminophen Plasma/Serum Alcohol Crossmatch 02/25/20 02/26/20 02/26/20 23:40 05:46 11:32 WBC RBC Hgb Hct MCH RDW Plt Count Lymph % (Auto) [place] % (Auto) [place] # Baso # Seg Neutrophils % Seg Neuts % (Manual) Lymphocytes % (Manual) Monocytes % (Manual) Seg Neutrophils # Seg Neutrophils # Man Lymphocytes # (Manual) Monocytes # (Manual) Eosinophils # (Manual) Basophils # (Manual) PT INR APTT ABG pH ABG pO2 ABG HCO3 ABG O2 Saturation ABG Base Excess ABG Hemoglobin Oxyhemoglobin Sodium Potassium Chloride Carbon Dioxide BUN Creatinine Glucose POC Glucose 114 H 113 H 106 H Lactic Acid Calcium Ionized Calcium Phosphorus Magnesium Total Bilirubin AST ALT Alkaline Phosphatase Ammonia Total Creatine Kinase CK-MB (CK-2) CK-MB (CK-2) Rel Index Total Protein Albumin Urine WBC (Auto) Vancomycin Trough Salicylates Acetaminophen Plasma/Serum Alcohol Crossmatch 02/26/20 02/27/20 02/27/20 16:14 11:53 17:54 WBC RBC Hgb Hct MCH RDW Plt Count Lymph % (Auto) [place] % (Auto) [place] # Baso # Seg Neutrophils % Seg Neuts % (Manual) Lymphocytes % (Manual) Monocytes % (Manual) Seg Neutrophils # Seg Neutrophils # Man Lymphocytes # (Manual) Monocytes # (Manual) Eosinophils # (Manual) Basophils # (Manual) PT INR APTT ABG pH ABG pO2 ABG HCO3 ABG O2 Saturation ABG Base Excess ABG Hemoglobin Oxyhemoglobin Sodium Potassium Chloride Carbon Dioxide BUN Creatinine Glucose POC Glucose 123 H 134 H 119 H Lactic Acid Calcium Ionized Calcium Phosphorus Magnesium Total Bilirubin AST ALT Alkaline Phosphatase Ammonia Total Creatine Kinase CK-MB (CK-2) CK-MB (CK-2) Rel Index Total Protein Albumin Urine WBC (Auto) Vancomycin Trough Salicylates Acetaminophen Plasma/Serum Alcohol Crossmatch 02/27/20 02/28/20 02/28/20 23:51 03:40 03:40 WBC RBC 3.58 L Hgb Hct MCH RDW Plt Count 575 H Lymph % (Auto) [place] % (Auto) 9.4 H [place] # 1.0 H Baso # Seg Neutrophils % Seg Neuts % (Manual) Lymphocytes % (Manual) Monocytes % (Manual) Seg Neutrophils # Seg Neutrophils # Man Lymphocytes # (Manual) Monocytes # (Manual) Eosinophils # (Manual) Basophils # (Manual) PT INR APTT ABG pH ABG pO2 ABG HCO3 ABG O2 Saturation ABG Base Excess ABG Hemoglobin Oxyhemoglobin Sodium Potassium Chloride Carbon Dioxide BUN 23 H Creatinine 0.5 L Glucose 114 H POC Glucose 138 H Lactic Acid Calcium Ionized Calcium Phosphorus Magnesium Total Bilirubin AST ALT Alkaline Phosphatase Ammonia Total Creatine Kinase CK-MB (CK-2) CK-MB (CK-2) Rel Index Total Protein Albumin Urine WBC (Auto) Vancomycin Trough Salicylates Acetaminophen Plasma/Serum Alcohol Crossmatch 02/28/20 02/28/20 02/29/20 12:37 18:38 05:50 WBC RBC Hgb Hct MCH RDW Plt Count Lymph % (Auto) [place] % (Auto) [place] # Baso # Seg Neutrophils % Seg Neuts % (Manual) Lymphocytes % (Manual) Monocytes % (Manual) Seg Neutrophils # Seg Neutrophils # Man Lymphocytes # (Manual) Monocytes # (Manual) Eosinophils # (Manual) Basophils # (Manual) PT INR APTT ABG pH ABG pO2 ABG HCO3 ABG O2 Saturation ABG Base Excess ABG Hemoglobin Oxyhemoglobin Sodium Potassium Chloride Carbon Dioxide BUN Creatinine Glucose POC Glucose 115 H 120 H 114 H Lactic Acid Calcium Ionized Calcium Phosphorus Magnesium Total Bilirubin AST ALT Alkaline Phosphatase Ammonia Total Creatine Kinase CK-MB (CK-2) CK-MB (CK-2) Rel Index Total Protein Albumin Urine WBC (Auto) Vancomycin Trough Salicylates Acetaminophen Plasma/Serum Alcohol Crossmatch 02/29/20 02/29/20 03/01/20 18:53 23:10 06:53 WBC RBC Hgb Hct MCH RDW Plt Count Lymph % (Auto) [place] % (Auto) [place] # Baso # Seg Neutrophils % Seg Neuts % (Manual) Lymphocytes % (Manual) Monocytes % (Manual) Seg Neutrophils # Seg Neutrophils # Man Lymphocytes # (Manual) Monocytes # (Manual) Eosinophils # (Manual) Basophils # (Manual) PT INR APTT ABG pH ABG pO2 ABG HCO3 ABG O2 Saturation ABG Base Excess ABG Hemoglobin Oxyhemoglobin Sodium Potassium Chloride Carbon Dioxide BUN Creatinine Glucose POC Glucose 112 H 147 H 131 H Lactic Acid Calcium Ionized Calcium Phosphorus Magnesium Total Bilirubin AST ALT Alkaline Phosphatase Ammonia Total Creatine Kinase CK-MB (CK-2) CK-MB (CK-2) Rel Index Total Protein Albumin Urine WBC (Auto) Vancomycin Trough Salicylates Acetaminophen Plasma/Serum Alcohol Crossmatch 03/01/20 03/01/20 03/02/20 17:31 18:35 00:10 WBC RBC Hgb Hct MCH RDW Plt Count Lymph % (Auto) [place] % (Auto) [place] # Baso # Seg Neutrophils % Seg Neuts % (Manual) Lymphocytes % (Manual) Monocytes % (Manual) Seg Neutrophils # Seg Neutrophils # Man Lymphocytes # (Manual) Monocytes # (Manual) Eosinophils # (Manual) Basophils # (Manual) PT INR APTT ABG pH ABG pO2 ABG HCO3 ABG O2 Saturation ABG Base Excess ABG Hemoglobin Oxyhemoglobin Sodium Potassium Chloride Carbon Dioxide BUN Creatinine Glucose POC Glucose 61 L 129 H 117 H Lactic Acid Calcium Ionized Calcium Phosphorus Magnesium Total Bilirubin AST ALT Alkaline Phosphatase Ammonia Total Creatine Kinase CK-MB (CK-2) CK-MB (CK-2) Rel Index Total Protein Albumin Urine WBC (Auto) Vancomycin Trough Salicylates Acetaminophen Plasma/Serum Alcohol Crossmatch 03/02/20 03/02/20 03/02/20 06:56 12:02 18:42 WBC RBC Hgb Hct MCH RDW Plt Count Lymph % (Auto) [place] % (Auto) [place] # Baso # Seg Neutrophils % Seg Neuts % (Manual) Lymphocytes % (Manual) Monocytes % (Manual) Seg Neutrophils # Seg Neutrophils # Man Lymphocytes # (Manual) Monocytes # (Manual) Eosinophils # (Manual) Basophils # (Manual) PT INR APTT ABG pH ABG pO2 ABG HCO3 ABG O2 Saturation ABG Base Excess ABG Hemoglobin Oxyhemoglobin Sodium Potassium Chloride Carbon Dioxide BUN Creatinine Glucose POC Glucose 125 H 111 H 126 H Lactic Acid Calcium Ionized Calcium Phosphorus Magnesium Total Bilirubin AST ALT Alkaline Phosphatase Ammonia Total Creatine Kinase CK-MB (CK-2) CK-MB (CK-2) Rel Index Total Protein Albumin Urine WBC (Auto) Vancomycin Trough Salicylates Acetaminophen Plasma/Serum Alcohol Crossmatch 03/03/20 03/03/20 03/03/20 00:18 06:11 11:50 WBC RBC Hgb Hct MCH RDW Plt Count Lymph % (Auto) [place] % (Auto) [place] # Baso # Seg Neutrophils % Seg Neuts % (Manual) Lymphocytes % (Manual) Monocytes % (Manual) Seg Neutrophils # Seg Neutrophils # Man Lymphocytes # (Manual) Monocytes # (Manual) Eosinophils # (Manual) Basophils # (Manual) PT INR APTT ABG pH ABG pO2 ABG HCO3 ABG O2 Saturation ABG Base Excess ABG Hemoglobin Oxyhemoglobin Sodium Potassium Chloride Carbon Dioxide BUN Creatinine Glucose POC Glucose 139 H 155 H 118 H Lactic Acid Calcium Ionized Calcium Phosphorus Magnesium Total Bilirubin AST ALT Alkaline Phosphatase Ammonia Total Creatine Kinase CK-MB (CK-2) CK-MB (CK-2) Rel Index Total Protein Albumin Urine WBC (Auto) Vancomycin Trough Salicylates Acetaminophen Plasma/Serum Alcohol Crossmatch 03/03/20 03/03/20 03/04/20 18:09 23:46 05:37 WBC RBC Hgb Hct MCH RDW Plt Count Lymph % (Auto) [place] % (Auto) [place] # Baso # Seg Neutrophils % Seg Neuts % (Manual) Lymphocytes % (Manual) Monocytes % (Manual) Seg Neutrophils # Seg Neutrophils # Man Lymphocytes # (Manual) Monocytes # (Manual) Eosinophils # (Manual) Basophils # (Manual) PT INR APTT ABG pH ABG pO2 ABG HCO3 ABG O2 Saturation ABG Base Excess ABG Hemoglobin Oxyhemoglobin Sodium Potassium Chloride Carbon Dioxide BUN Creatinine Glucose POC Glucose 109 H 132 H 111 H Lactic Acid Calcium Ionized Calcium Phosphorus Magnesium Total Bilirubin AST ALT Alkaline Phosphatase Ammonia Total Creatine Kinase CK-MB (CK-2) CK-MB (CK-2) Rel Index Total Protein Albumin Urine WBC (Auto) Vancomycin Trough Salicylates Acetaminophen Plasma/Serum Alcohol Crossmatch 03/04/20 03/04/20 03/05/20 11:38 17:54 00:14 WBC RBC Hgb Hct MCH RDW Plt Count Lymph % (Auto) [place] % (Auto) [place] # Baso # Seg Neutrophils % Seg Neuts % (Manual) Lymphocytes % (Manual) Monocytes % (Manual) Seg Neutrophils # Seg Neutrophils # Man Lymphocytes # (Manual) Monocytes # (Manual) Eosinophils # (Manual) Basophils # (Manual) PT INR APTT ABG pH ABG pO2 ABG HCO3 ABG O2 Saturation ABG Base Excess ABG Hemoglobin Oxyhemoglobin Sodium Potassium Chloride Carbon Dioxide BUN Creatinine Glucose POC Glucose 138 H 118 H 134 H Lactic Acid Calcium Ionized Calcium Phosphorus Magnesium Total Bilirubin AST ALT Alkaline Phosphatase Ammonia Total Creatine Kinase CK-MB (CK-2) CK-MB (CK-2) Rel Index Total Protein Albumin Urine WBC (Auto) Vancomycin Trough Salicylates Acetaminophen Plasma/Serum Alcohol Crossmatch 03/06/20 03/06/20 03/06/20 03:37 03:37 06:29 WBC RBC Hgb Hct MCH RDW Plt Count 550 H Lymph % (Auto) [place] % (Auto) 9.1 H [place] # Baso # Seg Neutrophils % Seg Neuts % (Manual) Lymphocytes % (Manual) Monocytes % (Manual) Seg Neutrophils # Seg Neutrophils # Man Lymphocytes # (Manual) Monocytes # (Manual) Eosinophils # (Manual) Basophils # (Manual) PT INR APTT ABG pH ABG pO2 ABG HCO3 ABG O2 Saturation ABG Base Excess ABG Hemoglobin Oxyhemoglobin Sodium Potassium Chloride Carbon Dioxide BUN 26 H Creatinine 0.5 L Glucose POC Glucose 128 H Lactic Acid Calcium 10.4 H Ionized Calcium Phosphorus Magnesium Total Bilirubin AST ALT Alkaline Phosphatase Ammonia Total Creatine Kinase CK-MB (CK-2) CK-MB (CK-2) Rel Index Total Protein Albumin Urine WBC (Auto) Vancomycin Trough Salicylates Acetaminophen Plasma/Serum Alcohol Crossmatch 03/06/20 03/07/20 03/07/20 17:47 06:37 12:37 WBC RBC Hgb Hct MCH RDW Plt Count Lymph % (Auto) [place] % (Auto) [place] # Baso # Seg Neutrophils % Seg Neuts % (Manual) Lymphocytes % (Manual) Monocytes % (Manual) Seg Neutrophils # Seg Neutrophils # Man Lymphocytes # (Manual) Monocytes # (Manual) Eosinophils # (Manual) Basophils # (Manual) PT INR APTT ABG pH ABG pO2 ABG HCO3 ABG O2 Saturation ABG Base Excess ABG Hemoglobin Oxyhemoglobin Sodium Potassium Chloride Carbon Dioxide BUN Creatinine Glucose POC Glucose 120 H 113 H 118 H Lactic Acid Calcium Ionized Calcium Phosphorus Magnesium Total Bilirubin AST ALT Alkaline Phosphatase Ammonia Total Creatine Kinase CK-MB (CK-2) CK-MB (CK-2) Rel Index Total Protein Albumin Urine WBC (Auto) Vancomycin Trough Salicylates Acetaminophen Plasma/Serum Alcohol Crossmatch 03/07/20 03/08/20 03/08/20 16:41 00:55 06:25 WBC RBC Hgb Hct MCH RDW Plt Count Lymph % (Auto) [place] % (Auto) [place] # Baso # Seg Neutrophils % Seg Neuts % (Manual) Lymphocytes % (Manual) Monocytes % (Manual) Seg Neutrophils # Seg Neutrophils # Man Lymphocytes # (Manual) Monocytes # (Manual) Eosinophils # (Manual) Basophils # (Manual) PT INR APTT ABG pH ABG pO2 ABG HCO3 ABG O2 Saturation ABG Base Excess ABG Hemoglobin Oxyhemoglobin Sodium Potassium Chloride Carbon Dioxide BUN Creatinine Glucose POC Glucose 108 H 139 H 127 H Lactic Acid Calcium Ionized Calcium Phosphorus Magnesium Total Bilirubin AST ALT Alkaline Phosphatase Ammonia Total Creatine Kinase CK-MB (CK-2) CK-MB (CK-2) Rel Index Total Protein Albumin Urine WBC (Auto) Vancomycin Trough Salicylates Acetaminophen Plasma/Serum Alcohol Crossmatch 03/08/20 03/08/20 03/08/20 12:49 13:25 17:13 WBC RBC Hgb Hct MCH RDW Plt Count Lymph % (Auto) [place] % (Auto) [place] # Baso # Seg Neutrophils % Seg Neuts % (Manual) Lymphocytes % (Manual) Monocytes % (Manual) Seg Neutrophils # Seg Neutrophils # Man Lymphocytes # (Manual) Monocytes # (Manual) Eosinophils # (Manual) Basophils # (Manual) PT INR APTT ABG pH ABG pO2 71.1 L ABG HCO3 26.2 H ABG O2 Saturation ABG Base Excess ABG Hemoglobin 8.2 L Oxyhemoglobin 94.8 L Sodium Potassium Chloride Carbon Dioxide BUN Creatinine Glucose POC Glucose 127 H 147 H Lactic Acid Calcium Ionized Calcium Phosphorus Magnesium Total Bilirubin AST ALT Alkaline Phosphatase Ammonia Total Creatine Kinase CK-MB (CK-2) CK-MB (CK-2) Rel Index Total Protein Albumin Urine WBC (Auto) Vancomycin Trough Salicylates Acetaminophen Plasma/Serum Alcohol Crossmatch 03/09/20 03/09/20 03/09/20 06:28 08:36 23:58 WBC RBC Hgb Hct MCH RDW Plt Count Lymph % (Auto) [place] % (Auto) [place] # Baso # Seg Neutrophils % Seg Neuts % (Manual) Lymphocytes % (Manual) Monocytes % (Manual) Seg Neutrophils # Seg Neutrophils # Man Lymphocytes # (Manual) Monocytes # (Manual) Eosinophils # (Manual) Basophils # (Manual) PT INR APTT ABG pH ABG pO2 ABG HCO3 ABG O2 Saturation ABG Base Excess ABG Hemoglobin Oxyhemoglobin Sodium Potassium Chloride Carbon Dioxide BUN Creatinine Glucose POC Glucose 139 H 167 H 122 H Lactic Acid Calcium Ionized Calcium Phosphorus Magnesium Total Bilirubin AST ALT Alkaline Phosphatase Ammonia Total Creatine Kinase CK-MB (CK-2) CK-MB (CK-2) Rel Index Total Protein Albumin Urine WBC (Auto) Vancomycin Trough Salicylates Acetaminophen Plasma/Serum Alcohol Crossmatch 03/10/20 03/10/20 03/11/20 06:32 23:27 06:23 WBC RBC Hgb Hct MCH RDW Plt Count Lymph % (Auto) [place] % (Auto) [place] # Baso # Seg Neutrophils % Seg Neuts % (Manual) Lymphocytes % (Manual) Monocytes % (Manual) Seg Neutrophils # Seg Neutrophils # Man Lymphocytes # (Manual) Monocytes # (Manual) Eosinophils # (Manual) Basophils # (Manual) PT INR APTT ABG pH ABG pO2 ABG HCO3 ABG O2 Saturation ABG Base Excess ABG Hemoglobin Oxyhemoglobin Sodium Potassium Chloride Carbon Dioxide BUN Creatinine Glucose POC Glucose 165 H 115 H 139 H Lactic Acid Calcium Ionized Calcium Phosphorus Magnesium Total Bilirubin AST ALT Alkaline Phosphatase Ammonia Total Creatine Kinase CK-MB (CK-2) CK-MB (CK-2) Rel Index Total Protein Albumin Urine WBC (Auto) Vancomycin Trough Salicylates Acetaminophen Plasma/Serum Alcohol Crossmatch 03/11/20 03/11/20 03/12/20 12:29 18:02 04:53 WBC RBC Hgb Hct MCH RDW Plt Count 625 H Lymph % (Auto) [place] % (Auto) [place] # Baso # Seg Neutrophils % Seg Neuts % (Manual) Lymphocytes % (Manual) Monocytes % (Manual) Seg Neutrophils # Seg Neutrophils # Man Lymphocytes # (Manual) Monocytes # (Manual) Eosinophils # (Manual) Basophils # (Manual) PT INR APTT ABG pH ABG pO2 ABG HCO3 ABG O2 Saturation ABG Base Excess ABG Hemoglobin Oxyhemoglobin Sodium Potassium Chloride Carbon Dioxide BUN Creatinine Glucose POC Glucose 164 H 113 H Lactic Acid Calcium Ionized Calcium Phosphorus Magnesium Total Bilirubin AST ALT Alkaline Phosphatase Ammonia Total Creatine Kinase CK-MB (CK-2) CK-MB (CK-2) Rel Index Total Protein Albumin Urine WBC (Auto) Vancomycin Trough Salicylates Acetaminophen Plasma/Serum Alcohol Crossmatch 03/12/20 03/12/20 03/12/20 04:53 06:26 12:38 WBC RBC Hgb Hct MCH RDW Plt Count Lymph % (Auto) [place] % (Auto) [place] # Baso # Seg Neutrophils % Seg Neuts % (Manual) Lymphocytes % (Manual) Monocytes % (Manual) Seg Neutrophils # Seg Neutrophils # Man Lymphocytes # (Manual) Monocytes # (Manual) Eosinophils # (Manual) Basophils # (Manual) PT INR APTT ABG pH ABG pO2 ABG HCO3 ABG O2 Saturation ABG Base Excess ABG Hemoglobin Oxyhemoglobin Sodium Potassium 5.3 H Chloride Carbon Dioxide BUN 34 H Creatinine Glucose 159 H POC Glucose 149 H 130 H Lactic Acid Calcium 10.7 H Ionized Calcium Phosphorus Magnesium Total Bilirubin AST ALT Alkaline Phosphatase Ammonia Total Creatine Kinase CK-MB (CK-2) CK-MB (CK-2) Rel Index Total Protein Albumin Urine WBC (Auto) Vancomycin Trough Salicylates Acetaminophen Plasma/Serum Alcohol Crossmatch 03/13/20 03/13/20 03/13/20 03:50 06:12 18:11 WBC RBC Hgb Hct MCH RDW Plt Count Lymph % (Auto) [place] % (Auto) [place] # Baso # Seg Neutrophils % Seg Neuts % (Manual) Lymphocytes % (Manual) Monocytes % (Manual) Seg Neutrophils # Seg Neutrophils # Man Lymphocytes # (Manual) Monocytes # (Manual) Eosinophils # (Manual) Basophils # (Manual) PT INR APTT ABG pH ABG pO2 ABG HCO3 ABG O2 Saturation ABG Base Excess ABG Hemoglobin Oxyhemoglobin Sodium Potassium Chloride Carbon Dioxide 20 L BUN 30 H Creatinine 0.6 L Glucose 153 H POC Glucose 124 H 111 H Lactic Acid Calcium Ionized Calcium Phosphorus Magnesium Total Bilirubin AST ALT Alkaline Phosphatase Ammonia Total Creatine Kinase CK-MB (CK-2) CK-MB (CK-2) Rel Index Total Protein Albumin Urine WBC (Auto) Vancomycin Trough Salicylates Acetaminophen Plasma/Serum Alcohol Crossmatch 03/14/20 03/14/20 03/15/20 12:01 15:40 00:02 WBC RBC Hgb Hct MCH RDW Plt Count Lymph % (Auto) [place] % (Auto) [place] # Baso # Seg Neutrophils % Seg Neuts % (Manual) Lymphocytes % (Manual) Monocytes % (Manual) Seg Neutrophils # Seg Neutrophils # Man Lymphocytes # (Manual) Monocytes # (Manual) Eosinophils # (Manual) Basophils # (Manual) PT INR APTT ABG pH ABG pO2 ABG HCO3 ABG O2 Saturation ABG Base Excess ABG Hemoglobin Oxyhemoglobin Sodium Potassium Chloride Carbon Dioxide BUN Creatinine Glucose POC Glucose 116 H 125 H 143 H Lactic Acid Calcium Ionized Calcium Phosphorus Magnesium Total Bilirubin AST ALT Alkaline Phosphatase Ammonia Total Creatine Kinase CK-MB (CK-2) CK-MB (CK-2) Rel Index Total Protein Albumin Urine WBC (Auto) Vancomycin Trough Salicylates Acetaminophen Plasma/Serum Alcohol Crossmatch 03/15/20 03/15/20 03/16/20 12:03 18:14 12:14 WBC RBC Hgb Hct MCH RDW Plt Count Lymph % (Auto) [place] % (Auto) [place] # Baso # Seg Neutrophils % Seg Neuts % (Manual) Lymphocytes % (Manual) Monocytes % (Manual) Seg Neutrophils # Seg Neutrophils # Man Lymphocytes # (Manual) Monocytes # (Manual) Eosinophils # (Manual) Basophils # (Manual) PT INR APTT ABG pH ABG pO2 ABG HCO3 ABG O2 Saturation ABG Base Excess ABG Hemoglobin Oxyhemoglobin Sodium Potassium Chloride Carbon Dioxide BUN Creatinine Glucose POC Glucose 106 H 107 H 107 H Lactic Acid Calcium Ionized Calcium Phosphorus Magnesium Total Bilirubin AST ALT Alkaline Phosphatase Ammonia Total Creatine Kinase CK-MB (CK-2) CK-MB (CK-2) Rel Index Total Protein Albumin Urine WBC (Auto) Vancomycin Trough Salicylates Acetaminophen Plasma/Serum Alcohol Crossmatch Allied health notes reviewed: RT
[2020-03-16] MEDS: ALPRAZolam 1 MG TAB PO PRN ×2 (14:26→20:43)
[2020-03-16] MEDS: ENOXAPARIN 40 MG/0.4 ML INJ SUB-Q SCH (22:30)
[2020-03-17] MEDS: ACETYLCYSTEINE 20% 200 MG/1 ML *FOR INHALATION USE INHALATION SCH ×3 (00:10→22:08)
[2020-03-17] MEDS: LEVALBUTEROL 0.63 MG/3 ML NEBU IH SCH ×4 (00:10→22:08)
[2020-03-17] MEDS: MIRTAZAPINE 30 MG TAB PO SCH (09:12)
[2020-03-17] MEDS: GLYCOPYRROLATE 1 MG TAB PO SCH ×3 (09:13→22:17)
[2020-03-17] MEDS: hydrOXYzine PAMOATE 25 MG CAP PO SCH ×2 (09:13→22:18)
[2020-03-17] MEDS: DOCUSATE SODIUM 100 MG/10 ML ORAL LIQD FEEDTUBE SCH ×2 (09:13→22:19)
[2020-03-17] MEDS: QUEtiapine 100 MG TAB FEEDTUBE SCH ×2 (09:14→22:18)
[2020-03-17] MEDS: METOPROLOL TARTRATE 25 MG TAB PO SCH ×2 (09:14→22:18)
[2020-03-17] MEDS: SERTRALINE 50 MG TAB PO SCH (09:14)
[2020-03-17] MEDS: levETIRAcetam 500 MG/5 ML ORAL LIQD PO SCH ×2 (09:14→22:19)
[2020-03-17] MEDS: NICOTINE 21 MG/24 HR PATCH TD SCH (09:15)
[2020-03-17] MEDS: LANSOPRAZOLE 30 MG SOLUTAB FEEDTUBE SCH (09:16)
--- NOTE | 2020-03-17 13:35 | Progress Note ---
Assessment and Plan Assessment and plan: 54-year-old female with a past medical history of Hypertension, Depression, Tobacco use Disorder, Alcohol use Disorder as confirmed by Daughter and pt's mother presents to the hospital status post cardiac arrest at home. EMS found pt in [facility]. They were unable to intubate patient with a ET tube because she was clenching down therefore Joe airway placed. Per the ED physician who evaluated pt, Patient presented with a pulse, intermittent respirations, and bagging support via Joe airway with O2 sat of 100%. Accu-Chek of 71 obtained by EMS. She was intubated in the ER and called for admission. Following admission patient was diagnosed with anoxic brain injury, sepsis with MRSA bacteremia and MSSA pneumonia, alcoholic liver disease. Family member initially wished for full code then changed to DNR, patient treated with IV antibiotics for sepsis, status post trach and PEG on 12/13/19. Weaned off from the vent and put on T- piece. Patient is uninsured, waiting for placement, guarded prognosis. 03/07: Returning to service no acute changes are noted. Continue current management while awaiting placement. Intermittent labs. Base of neck also around tracheostomy tube preventing downgrading. Continue appropriate wound care. 03/08: Plan of care unchanged continues on aerosol trach collar 28% of oxygen. Continue wound care management placement still pending status decision. 03/09: Continue current treatment plan. Continue aspiration precaution 03/10: Continue current management, Restraints as patient still pulling, awaiting placement 03/11: Continue supportive care, intermittent suctioning and pulmonary toilet. awaiting placement. 03/12: Continue supportive care, Give a bolus of fluids due to Hypercalcemia, Monitor Hyperkalemia with labs in am, No arrhythmia. Patient vomiting, concern for aspiration, Chest xray ordered and no active disease noted. Keep HOB >45% 03/13: No evidence of aspiration on xray. Continue supportive care. 03/14: Continue supportive care. Capping trials to start. Discussed with patients nursing and case management to continue daily PT by the Rehab team. 03/15: Discussed again with staff to start capping trial. 03/16: Do not see any indication the capping trial has started will discuss with respiratory therapist. Continue restraints. Still awaiting family decision patient has had some remarkable improvement considering the fact that she was able to stay around night without restraints. We will continue daily trial of this method. Discussed plan with nursing staff 03/17: Continue current care. Currently. Continue restraints. Continue current management. Continue physical therapy daily. / Anoxic brain injury: suspected CT head: No acute abnormality. EEG ordered showed Generalized slowing. No seizures or epileptiform activity. -Patient now opening her eyes, can speak and able to follow command -As needed haldol for agitation /Acute Respiratory failure -due to MSSA PNA -s/p intubation, s/p trach and PEG on 12/12 with mechanical ventilation, now on T-piece - CTA was done and negative for PE, - Echo quality is poor, showed diastolic dysfunction - continue weaning as tolerated -Continue appropriate and adequate tracheostomy care /Tracheostomy site ulceration -Continue appropriate wound management try to keep area dry. /Anemia, microcytic - Status post 3 units PRBC transfusion, H&H low stable /Acute metabolic encephalopathy/toxic encephalopathy due to the above - cont supportive care /Hyperammonemia - likely from liver disease related to EtOH abuse - Patient had elevated ammonia level and treated with lactulose /Metabolic Acidosis -Alcohol ketoacidosis vs hypoprofusion -Continue to monitor /ELevated LFTs, stable now - due to ischemic hepatitis. /Leucocytosis with sepsis - Source MRSA bacteremia and MSSA pneumonia. UA showed pyuria. RUQ US showed no ascites. - Repeat TTE negative for vegetation. Completed 7 days of Ceftriaxone on 11/29/2019. -Treated with Abx vancomycin 1 gm IV q 12 hour total 2 week till 12/30/2019 /Severe protein calorie malnutrition Dietitian consult to assist in management. /MSSA pneumonia: Status post vancomycin till 12/30/2019 /Alcohol use Disorder - given ongoing Alcohol use almost daily, s/p IV Thiamine - monitor /Severe hypokalemia -Repleted /Seizure disorder: treat with Keppra /H. Influenzae, tracheobronchitis, treated with abx /Moderate to severe fecal impaction - will add stool softner DNR CODE STATUS Disposition: prognosis guarded. Family okay for DNR, PT recommended subacute rehab, discharge pending on placement. negative for COVID 19 History Interval history: Patient seen and examined no clinical change at this time continues on ATC at 28% off oxygen. Hospitalist Physical - Physical exam Narrative exam: General appearance: Present: Appears older than stated age Intermittent agitation - EENT Eyes: no scleral icterus, no conjunctival injection, pupil not reactive ENT: clear oral mucosa, dentition normal, no oropharyngeal erythema Ears: bilateral: normal - Neck Neck: trach on place with mild ulceration at the base. - Respiratory Respiratory effort: other (on T-piece) Respiratory: bilateral: rales - Cardiovascular Rhythm: regular Heart Sounds: Present: S1 & S2. Absent: gallop, rub Extremities: pulses intact, No edema, normal color - Gastrointestinal General gastrointestinal: Present: soft, non-tender, non-distended, normal bowel sounds - Integumentary Integumentary: clear, warm, dry - Musculoskeletal Musculoskeletal: No joint swelling or tenderness - Neurologic Neurologic: other (2+ reflexes throughout). respond to commend and nods head. generalized weakness, verbal - Psychiatric Psychiatric: co-operative - Constitutional Vitals: Temp Pulse Resp BP Pulse Ox 97.7 F 90 22 125/86 96 03/17/20 12:00 03/17/20 12:00 03/17/20 12:00 03/17/20 12:00 03/17/20 12:00 General appearance: Present: mild distress, cachectic, disheveled, other (Noncommunicative) HEART Score - HEART Score Troponin: Troponin T < 0.010 ng/mL (0.00-0.029) 11/22/19 23:27 Results - Labs CBC & Chem 7: 03/12/20 04:53 03/13/20 03:50 Labs: Laboratory Last Values WBC 9.1 K/mm3 (4.5-11.0) 03/12/20 04:53 RBC 3.90 M/mm3 (3.65-5.03) 03/12/20 04:53 Hgb 11.5 gm/dl (10.1-14.3) 03/12/20 04:53 Hct 34.2 % (30.3-42.9) 03/12/20 04:53 MCV 88 fl (79-97) 03/12/20 04:53 MCH 29 pg (28-32) 03/12/20 04:53 MCHC 34 % (30-34) 03/12/20 04:53 RDW 14.4 % (13.2-15.2) 03/12/20 04:53 Plt Count 625 K/mm3 (140-440) H 03/12/20 04:53 Lymph % (Auto) 27.8 % (13.4-35.0) 03/06/20 03:37 [place] % (Auto) 9.1 % (0.0-7.3) H 03/06/20 03:37 Eos % (Auto) 2.8 % (0.0-4.3) 03/06/20 03:37 Baso % (Auto) 0.7 % (0.0-1.8) 03/06/20 03:37 Lymph # 2.2 K/mm3 (1.2-5.4) 03/06/20 03:37 [place] # 0.7 K/mm3 (0.0-0.8) 03/06/20 03:37 Eos # 0.2 K/mm3 (0.0-0.4) 03/06/20 03:37 Baso # 0.1 K/mm3 (0.0-0.1) 03/06/20 03:37 Add Manual Diff Complete 12/25/19 03:47 Total Counted 200 12/25/19 03:47 Seg Neutrophils % 59.6 % (40.0-70.0) 03/06/20 03:37 Seg Neuts % (Manual) 97.5 % (40.0-70.0) H 12/25/19 03:47 Band Neutrophils % 0 % 12/25/19 03:47 Lymphocytes % (Manual) 1.0 % (13.4-35.0) L 12/25/19 03:47 Reactive Lymphs % (Man) 0 % 12/25/19 03:47 Monocytes % (Manual) 1.5 % (0.0-7.3) 12/25/19 03:47 Eosinophils % (Manual) 0 % (0.0-4.3) 12/25/19 03:47 Basophils % (Manual) 0 % (0.0-1.8) 12/25/19 03:47 Metamyelocytes % 0 % 12/25/19 03:47 Myelocytes % 0 % 12/25/19 03:47 Promyelocytes % 0 % 12/25/19 03:47 Blast Cells % 0 % 12/25/19 03:47 Nucleated RBC % Not Reportable 12/25/19 03:47 Seg Neutrophils # 4.8 K/mm3 (1.8-7.7) 03/06/20 03:37 Seg Neutrophils # Man 35.3 K/mm3 (1.8-7.7) H 12/25/19 03:47 Band Neutrophils # 0.0 K/mm3 12/25/19 03:47 Lymphocytes # (Manual) 0.4 K/mm3 (1.2-5.4) L 12/25/19 03:47 Abs React Lymphs (Man) 0.0 K/mm3 12/25/19 03:47 Monocytes # (Manual) 0.5 K/mm3 (0.0-0.8) 12/25/19 03:47 Eosinophils # (Manual) 0.0 K/mm3 (0.0-0.4) 12/25/19 03:47 Basophils # (Manual) 0.0 K/mm3 (0.0-0.1) 12/25/19 03:47 Metamyelocytes # 0.0 K/mm3 12/25/19 03:47 Myelocytes # 0.0 K/mm3 12/25/19 03:47 Promyelocytes # 0.0 K/mm3 12/25/19 03:47 Blast Cells # 0.0 K/mm3 12/25/19 03:47 Pathologist Review 12/13/19 07:48 WBC Morphology Not Reportable 12/25/19 03:47 Hypersegmented Neuts Not Reportable 12/25/19 03:47 Hyposegmented Neuts Not Reportable 12/25/19 03:47 Hypogranular Neuts Not Reportable 12/25/19 03:47 Smudge Cells Not Reportable 12/25/19 03:47 Toxic Granulation Not Reportable 12/25/19 03:47 Toxic Vacuolation Not Reportable 12/25/19 03:47 Dohle Bodies Not Reportable 12/25/19 03:47 Pelger-Huet Anomaly Not Reportable 12/25/19 03:47 Dominique Rods Not Reportable 12/25/19 03:47 Platelet Estimate Consistent w auto 12/25/19 03:47 Clumped Platelets Not Reportable 12/25/19 03:47 Plt Clumps, EDTA Not Reportable 12/25/19 03:47 Large Platelets Not Reportable 12/25/19 03:47 Giant Platelets Not Reportable 12/25/19 03:47 Platelet Satelliting Not Reportable 12/25/19 03:47 Plt Morphology Comment Not Reportable 12/25/19 03:47 RBC Morphology Not Reportable 12/25/19 03:47 Dimorphic RBCs Not Reportable 12/25/19 03:47 Polychromasia Not Reportable 12/25/19 03:47 Hypochromasia Not Reportable 12/25/19 03:47 Poikilocytosis Not Reportable 12/25/19 03:47 Anisocytosis 1+ 12/25/19 03:47 Microcytosis Not Reportable 12/25/19 03:47 Macrocytosis Not Reportable 12/25/19 03:47 Spherocytes Not Reportable 12/25/19 03:47 Pappenheimer Bodies Not Reportable 12/25/19 03:47 Sickle Cells Not Reportable 12/25/19 03:47 Target Cells Not Reportable 12/25/19 03:47 Tear Drop Cells Not Reportable 12/25/19 03:47 Ovalocytes Not Reportable 12/25/19 03:47 Helmet Cells Not Reportable 12/25/19 03:47 [place] Bodies Not Reportable 12/25/19 03:47 [place]om Rings Not Reportable 12/25/19 03:47 [place] Cells Not Reportable 12/25/19 03:47 Bite Cells Not Reportable 12/25/19 03:47 Crenated Cell Not Reportable 12/25/19 03:47 Elliptocytes Not Reportable 12/25/19 03:47 Acanthocytes (Spur) Not Reportable 12/25/19 03:47 Rouleaux Not Reportable 12/25/19 03:47 Hemoglobin C Crystals Not Reportable 12/25/19 03:47 Schistocytes Not Reportable 12/25/19 03:47 Malaria parasites Not Reportable 12/25/19 03:47 Gregg Bodies Not Reportable 12/25/19 03:47 Hem Pathologist Commnt No 12/25/19 03:47 PT 17.0 Sec. (12.2-14.9) H 11/23/19 03:47 INR 1.36 (0.87-1.13) H 11/23/19 03:47 APTT 128.2 Sec. (24.2-36.6) H* 11/23/19 03:47 Heparin Anti-Xa Level 0.31 U.I./ml (0.3-0.7) 11/23/19 09:03 ABG pH 7.433 pH Units (7.350-7.450) 03/08/20 13:25 ABG pCO2 40.2 mm Hg 03/08/20 13:25 ABG pO2 71.1 mm Hg (80.0-90.0) L 03/08/20 13:25 ABG HCO3 26.2 mmol/L (20.0-26.0) H 03/08/20 13:25 ABG O2 Saturation 97.0 % (95.0-99.0) 03/08/20 13:25 ABG O2 Content 11.0 (0.0-44) 03/08/20 13:25 ABG Base Excess 1.8 mmol/L (-2.0-3.0) 03/08/20 13:25 ABG Hemoglobin 8.2 gm/dl (12.0-16.0) L 03/08/20 13:25 ABG Carboxyhemoglobin 1.7 % (0.0-5.0) 03/08/20 13:25 ABG Methemoglobin 0.5 % (0.0-1.5) 03/08/20 13:25 Oxyhemoglobin 94.8 % (95.0-99.0) L 03/08/20 13:25 FiO2 21 % 03/08/20 13:25 Sodium 137 mmol/L (137-145) 03/13/20 03:50 Potassium 3.8 mmol/L (3.6-5.0) D 03/13/20 03:50 Chloride 103.1 mmol/L (98-107) 03/13/20 03:50 Carbon Dioxide 20 mmol/L (22-30) L 03/13/20 03:50 Anion Gap 18 mmol/L 03/13/20 03:50 BUN 30 mg/dL (7-17) H 03/13/20 03:50 Creatinine 0.6 mg/dL (0.7-1.2) L 03/13/20 03:50 Estimated GFR > 60 ml/min 03/13/20 03:50 BUN/Creatinine Ratio 50 % 03/13/20 03:50 Glucose 153 mg/dL (65-100) H 03/13/20 03:50 POC Glucose 120 (70-105) H 03/17/20 12:09 Lactic Acid 1.80 mmol/L (0.7-2.0) 11/25/19 05:05 Calcium 10.0 mg/dL (8.4-10.2) 03/13/20 03:50 Ionized Calcium 4.5 mg/dL (4.8-5.6) L 11/23/19 06:32 Phosphorus 4.20 mg/dL (2.5-4.5) D 11/28/19 08:59 Magnesium 1.90 mg/dL (1.7-2.3) 02/28/20 03:40 Total Bilirubin 0.40 mg/dL (0.1-1.2) 12/13/19 07:48 AST 27 units/L (5-40) 12/13/19 07:48 ALT 26 units/L (7-56) 12/13/19 07:48 Alkaline Phosphatase 316 units/L (35-129) H 12/13/19 07:48 Ammonia 42.0 umol/L (25-60) 11/29/19 13:41 Total Creatine Kinase 139 units/L (30-135) H 11/22/19 23:27 CK-MB (CK-2) 8.3 ng/mL (0.0-4.0) H 11/22/19 23:27 CK-MB (CK-2) Rel Index 5.9 (0-4) H 11/22/19 23:27 Troponin T < 0.010 ng/mL (0.00-0.029) 11/22/19 23:27 Total Protein 6.8 g/dL (6.3-8.2) 12/13/19 07:48 Albumin 2.4 g/dL (3.9-5) L 12/13/19 07:48 Albumin/Globulin Ratio 0.5 % 12/13/19 07:48 Lipase 18 units/L (13-60) 11/23/19 00:34 Procalcitonin 1.09 ng/mL (<0.15) 11/23/19 04:53 TSH 1.010 mlU/mL (0.270-4.200) 02/12/20 07:36 Free T4 1.08 ng/dL (0.76-1.46) 02/12/20 07:36 Urine Color Yellow (Yellow) 12/16/19 Unknown Urine Turbidity Slightly-cloudy (Clear) 12/16/19 Unknown Urine pH 5.0 (5.0-7.0) 12/16/19 Unknown Ur Specific [place] 1.018 (1.003-1.030) 12/16/19 Unknown Urine Protein 30 mg/dl mg/dL (Negative) 12/16/19 Unknown Urine Glucose (UA) Neg mg/dL (Negative) 12/16/19 Unknown Urine Ketones Neg mg/dL (Negative) 12/16/19 Unknown Urine Blood Sm (Negative) 12/16/19 Unknown Urine Nitrite Neg (Negative) 12/16/19 Unknown Urine Bilirubin Neg (Negative) 12/16/19 Unknown Urine Urobilinogen < 2.0 mg/dL (<2.0) 12/16/19 Unknown Ur Leukocyte Esterase Neg (Negative) 12/16/19 Unknown Urine WBC (Auto) 6.0 /HPF (0.0-6.0) 12/16/19 Unknown Urine RBC (Auto) 9.0 /HPF (0.0-6.0) 12/16/19 Unknown U Epithel Cells (Auto) < 1.0 /HPF (0-13.0) 12/16/19 Unknown Urine Bacteria (Auto) 2+ /HPF (Negative) 11/22/19 23:17 Hyaline Casts 3 /LPF 12/16/19 Unknown Granular Casts 3 /LPF 12/16/19 Unknown Urine Mucus Few /HPF 12/16/19 Unknown Vancomycin Trough 33.8 ug/mL (5.0-20.0) H 12/21/19 08:56 Random Vancomycin 16.2 ug/mL (0-40.0) 12/24/19 04:31 Salicylates < 0.3 mg/dL (2.8-20.0) L 11/22/19 23:27 Urine Opiates Screen Presumptive negative 11/22/19 23:17 Urine Methadone Screen Presumptive negative 11/22/19 23:17 Acetaminophen < 5.0 ug/mL (10.0-30.0) L 11/22/19 23:27 Ur Barbiturates Screen Presumptive negative 11/22/19 23:17 Ur Phencyclidine Scrn Presumptive negative 11/22/19 23:17 Ur Amphetamines Screen Presumptive negative 11/22/19 23:17 U Benzodiazepines Scrn Presumptive negative 11/22/19 23:17 Urine Cocaine Screen Presumptive negative 11/22/19 23:17 U Marijuana (THC) Screen Presumptive negative 11/22/19 23:17 Drugs of Abuse Note Disclamer 11/22/19 23:17 Plasma/Serum Alcohol 0.08 % (0-0.07) H 11/22/19 23:27 Coronavirus (PCR) Negative (Negative) 02/05/20 07:50 Hepatitis A IgM Ab Non-reactive (NonReactive) 11/23/19 01:19 Hep Bs Antigen Non-reactive (Negative) 11/23/19 01:19 Hep B Core IgM Ab Non-reactive (NonReactive) 11/23/19 01:19 Hepatitis C Antibody Non-reactive (NonReactive) 11/23/19 01:19 Blood Type O POSITIVE 12/21/19 14:54 Antibody Screen Negative 12/21/19 14:54 Crossmatch See Detail 12/21/19 14:54 - Diagnostic Impressions Diagnostic Impressions: Echocardiogram 11/23/19 03:58 Transthoracic Echocardiogram Indication: Cardiac arrest BP: 131/89 HR: 115 Conclusions *The study quality is technically difficult. *Global left ventricular wall motion and contractility are within normal limits. *The estimated ejection fraction is 55-60%. *Abnormal left ventricular diastolic filling is observed, consistent with impaired relaxation. *There is no pericardial effusion. Findings Procedure Info: The study quality is technically difficult. The study was technically limited due to the patient's inability to lay in the left lateral decubitus position. Left Ventricle: The left ventricular chamber size is normal. There is no left ventricular hypertrophy. Global left ventricular wall motion and contractility are within normal limits. Global left ventricular systolic function is normal. The estimated ejection fraction is 55-60%. Abnormal left ventricular diastolic filling is observed, consistent with impaired relaxation. Left Atrium: The left atrial chamber size is normal. Aortic Valve: The aortic valve leaflets are mildly thickened. Mitral Valve: The mitral valve leaflets are mildly thickened. There is no evidence of mitral regurgitation. Tricuspid Valve: The tricuspid valve leaflets are normal. There is trace tricuspid regurgitation. The right ventricular systolic pressure is calculated at 33 mmHg. Pulmonic Valve: The pulmonic valve appears normal. Pericardium: The pericardium appears normal. There is no pericardial effusion. Aorta: The aorta appears normal. Venous: The inferior vena cava appears normal in size. Measurements Chambers 2D Name Value Normal Range IVSd (2D) 0.94 cm (0.6 - 1.1) LVPWd (2D) 0.81 cm (0.6 - 1.1) LVIDd (2D) 3.6 cm (3.7 - 5.6) LVIDs (2D) 2.27 cm (2 - 3.8) LV FS (2D) 36.93 % - EF Teichholz (2D) 67.76 % - Ao root diameter (2D) 3.03 cm (2 - 3.7) Volumes/Mass Name Value Normal Range LA ESV SP 4CH (A/L) 16.89 ml - LA ESV SP 4CH (MOD) 15.52 ml - Diastolic/Systolic Function Name Value Normal Range MV E-wave Vmax 0.55 m/sec - MV deceleration time 200.89 msec - MV A-wave Vmax 0.68 m/sec - MV E:A ratio 0.82 ratio - Aortic Valve Name Value Normal Range AV Vmax 1.1 m/sec - AV VTI 15.9 cm - AV peak gradient 4.86 mmHg - AV mean gradient 2.59 mmHg - LVOT diameter 2 cm - LVOT Vmax 1.03 m/sec - LVOT VTI 15.87 cm - LVOT peak gradient 4.24 mmHg - LVOT mean gradient 2.41 mmHg - SV LVOT 49.77 ml - JOSÉ MIGUEL (continuity Vmax) 2.93 cm2 - JOSÉ MIGUEL (continuity VTI) 3.13 cm2 - Tricuspid Valve Name Value Normal Range TR Vmax 2.74 m/sec - TR peak gradient 303 mmHg - RAP 3 mmHg - RVSP 33 mmHg - IVC diameter 1.77 cm (1.2 - 2.3) Pulmonic Valve/Qp:Qs Name Value Normal Range PV Vmax 0.77 m/sec - PV peak gradient 2.4 mmHg - PV acceleration time 114.18 msec - Echocardiogram Limited Views 12/17/19 14:53 Transthoracic Echocardiogram Indication: R/O Vegetations BP: 144/83 HR: 133 Conclusions *Global left ventricular systolic function is mildly decreased. *The estimated ejection fraction is 45-50%. *A trivial pericardial effusion is visualized. Findings Left Ventricle: The left ventricular chamber size is normal. Global left ventricular systolic function is mildly decreased. The estimated ejection fraction is 45-50%. Left Atrium: The left atrial chamber size is normal. Right Ventricle: The right ventricular cavity size is normal. Right Atrium: The right atrial cavity size is normal. Aortic Valve: The aortic valve is not well visualized. There is no evidence of aortic regurgitation. Mitral Valve: The mitral valve leaflets are mildly thickened. There is trace of mitral regurgitation. Tricuspid Valve: The tricuspid valve leaflets are mildly thickened. There is trace tricuspid regurgitation. The right ventricular systolic pressure is calculated at 29 mmHg. Pulmonic Valve: The pulmonic valve is not well visualized. There is no evidence of pulmonic regurgitation. Pericardium: A trivial pericardial effusion is visualized. Aorta: There is no dilatation of the ascending aorta. There is no dilatation of the aortic root. Venous: The inferior vena cava appears normal in size. There is a greater than 50% respiratory change in the inferior vena cava dimension. Measurements Chambers 2D Name Value Normal Range IVSd (2D) 0.83 cm (0.6 - 1.1) LVPWd (2D) 0.98 cm (0.6 - 1.1) LVIDd (2D) 3.71 cm (3.7 - 5.6) LVIDs (2D) 2.93 cm (2 - 3.8) LV FS (2D) 21.12 % - EF Teichholz (2D) 43.71 % - Ao root diameter (2D) 3.02 cm (2 - 3.7) Volumes/Mass Name Value Normal Range LA ESV SP 4CH (A/L) 36.8 ml - LA ESV SP 2CH (A/L) 45.89 ml - LA ESV BP (A/L) 42.35 ml - LA ESV BP (A/L) index 26.63 ml/m2 - LA ESV SP 4CH (MOD) 34.42 ml - LA ESV SP 2CH (MOD) 44.21 ml - LA ESV BP (MOD) 39.82 ml - LA ESV BP (MOD) index 25.05 ml/m2 - Aortic Valve Name Value Normal Range LVOT diameter 1.63 cm - Tricuspid Valve Name Value Normal Range TR Vmax 2.56 m/sec - TR peak gradient 26 mmHg - RAP 3 mmHg - RVSP 29 mmHg - IVC diameter 1.83 cm (1.2 - 2.3) [place]/IV: Voiding Method Incontinent IV Catheter Type [Forearm] Peripheral IV IV Catheter Type [Left Forearm INT / Saline Lock ] IV Catheter Type [Right INT / Saline Lock Antecubital] IV Catheter Type [Right Hand] INT / Saline Lock IV Catheter Type [Right Wrist] Peripheral IV IV Catheter Type [Left Wrist] Peripheral IV IV Catheter Type [Left Peripheral IV Antecubital] IV Catheter Type [Right INT / Saline Lock Forearm] IV Catheter Type [Left Hand] INT / Saline Lock Active Medications - Current Medications Current Medications: Generic Name Dose Route Start Last Admin Trade Name Freq PRN Reason Stop Dose Admin Acetaminophen 650 mg 12/06/19 10:25 03/13/20 20:36 Tylenol FEEDTUBE 650 mg Q6H PRN Administration TEMP >/=100.3 Acetylcysteine 200 mg 02/16/20 20:00 03/17/20 08:30 Mucomyst Inhalation INHALATION 200 mg Q12HRT LUCHO Administration Alprazolam 1 mg 02/21/20 18:24 03/16/20 20:43 Xanax PO 1 mg Q8H PRN Administration Anxiety Lipase/Protease/Amylase 1 each 11/23/19 11:[address] 10,500 Unit FEEDTUBE PRN PRN Use w/ sod bicarb for FT Bisacodyl 10 mg 02/06/20 13:57 Dulcolax [place] QDAY PRN Constipation unrelieved by MOM Docusate Sodium 100 mg 02/18/20 22:00 03/17/20 09:13 Colace FEEDTUBE 100 mg BID LUCHO Administration Enoxaparin Sodium 40 mg 03/07/20 22:00 03/16/20 22:30 Enoxaparin SUB-Q 40 mg QDAY@2200 LUCHO Administration Glycopyrrolate 2 mg 12/31/19 20:00 03/17/20 09:13 Robinul PO 2 mg TID LUCHO Administration Haloperidol Lactate 5 mg 03/05/20 09:22 03/16/20 08:35 Haldol IM 5 mg Q6H PRN Administration Agitation Hydralazine HCl 10 mg 11/24/19 00:45 03/03/20 05:57 Apresoline IV 10 mg Q6H PRN Administration SBP > 160 Hydroxyzine Pamoate 25 mg 12/06/19 10:00 03/17/20 09:13 Vistaril PO 25 mg BID LUCHO Administration Lansoprazole 30 mg 11/27/19 10:00 03/17/20 09:16 Prevacid Solutab FEEDTUBE 30 mg QDAY LUCHO Administration Levalbuterol HCl 0.63 mg 02/17/20 00:00 03/17/20 08:30 Xopenex IH 0.63 mg Q8HRT LUCHO Administration Levetiracetam 500 mg 11/29/19 10:00 03/17/20 09:14 Keppra PO 500 mg BID LUCHO Administration Metoprolol Tartrate 12.5 mg 02/23/20 22:00 03/17/20 09:14 Metoprolol PO 12.5 mg BID LUCHO Administration Mirtazapine 30 mg 12/06/19 10:00 03/17/20 09:12 Remeron PO 30 mg DAILY LUCHO Administration Nicotine 21 mg 02/16/20 13:00 03/17/20 09:15 Habitrol TD 21 mg QDAY LUCHO Administration Ondansetron HCl 4 mg 12/10/19 07:53 02/25/20 02:51 Zofran IV 4 mg Q4H PRN Administration Nausea And Vomiting Polyethylene Glycol 17 gm 02/06/20 13:57 Miralax 3350 PO QDAY PRN Constipation Quetiapine Fumarate 100 mg 03/06/20 10:00 03/17/20 09:14 Seroquel FEEDTUBE 100 mg BID LUCHO Administration Scopolamine 1 each 02/08/20 15:00 03/15/20 09:36 Transderm-Scop TD 1 each Q3D LUCHO Administration Sertraline HCl 25 mg 01/01/20 10:00 03/17/20 09:14 Zoloft PO 25 mg QDAY LUCHO Administration Simple Syrup 15 ml 11/23/19 11:50 Simple Syrup FEEDTUBE PRN PRN Hypoglycemia BG<70 Simple Syrup 30 ml 11/23/19 11:50 Simple Syrup FEEDTUBE PRN PRN Hypoglycemia Sodium Bicarbonate 325 mg 11/23/19 11:50 Sodium Bicarbonate FEEDTUBE PRN PRN For Clogged Feeding Tube Nutrition/Malnutrition Assess - Dietary Evaluation Nutrition/Malnutrition Findings: Nutrition Notes Start: 11/23/19 11:29 Freq: Status: Active Protocol: Document 03/13/20 14:31 LM (Rec: 03/13/20 14:32 LM [email or web address]) Nutrition Notes Initial or Follow up Reassessment Current Diagnosis Hypertension Other Pertinent Diagnosis Cardaic arrest, ETOH dependence, UTI Current Diet Jevity 1.2 at 60ml/hr Labs/Tests Reviewed Pertinent Medications Reviewed Height 5 ft 6 in Weight 46.7 kg [place] Body Weight (kg) 59.09 BMI 16.6 Subjective/Other Information Pt tolerating TF at goal. Percent of energy/protein needs met: 97%/100% Burn Absent Trauma Absent GI Symptoms None Current % PO Negligible Interpretation of Weight Loss (severe) >2% in 1 week Muscle Mass Mild Depletion (non-severe) #2 Nutrition Diagnosis Malnutrition Diagnosis Progress(for reassessment Continues documentation) #1 Diagnosis Progress(for reassessment Continues documentation) Is patient on ventilator? No Is Patient Ambulatory and/or Out of Bed No REE-([place]-confined to bed) 1305.120 Kcal/Kg value to use for calculation 38 Approximate Energy Requirements Using 1775 kcal/Kg Calculation Used for Recommendations Kcal/kg Additional Notes Protein: 60-75g (1.2-1.5g/kg) Fluid: 1 ml/kcal Nutrition Intervention Change Diet Order: Continue TF Nutrition Support: Jevity 1.2 at 60ml/hr Flush 100ml q4h Kcal 1,728 Protein (gm) 80 Fluid (mL) 1,162 Goal #1 TF tolerance Goal #2 Meet at least 80% of energy and protein needs via TF Goal #3 Wt gain/maintenacne Anticipated Discharge Needs: TF Follow-Up By: 03/20/20 Additional Comments F/U for TF tolerance
[2020-03-17] MEDS: ALPRAZolam 1 MG TAB PO PRN ×2 (13:59→22:17)
--- NOTE | 2020-03-17 14:12 | Progress Note ---
Assessment and Plan Patients Trach tube is capped. Patient is on 3 litres O2. o2 saturation running 96%.Patient S/P Wound around trach tube. Recommend cleaning and tracheostomy care. Dressing applied.Recommend frequent respiratory suctioning. Continue bronchodilators.Patient afebrile and has no leukocytosis. Chest xray 03/12/20 reported no acute findings. Tracheostomy tube in place. ABGS: ABG pH 7.433 pH Units (7.350-7.450) 03/08/20 13:25 ABG pCO2 40.2 mm Hg 03/08/20 13:25 ABG pO2 71.1 mm Hg (80.0-90.0) L 03/08/20 13:25 ABG O2 Saturation 97.0 % (95.0-99.0) 03/08/20 13:25 on room air Patient alert, awake. Still agitating at times. No acute respiratory distress. - Patient Problems (1) Acute respiratory failure Current Visit: Yes Status: Acute Qualifiers: Respiratory failure complication: hypoxia Qualified Code(s): J96.01 - Acute respiratory failure with hypoxia Plan to address problem: S/P Tracheostomy. Trach tube capped. On 2 litres O2. O2 saturation 96%. Recommend albuterol/atrovent aerosol treatments q 6 hours. Continue Mucomist. Respiratory suctioning. Trach care. Mobility protocol. (2) Alcohol abuse Current Visit: Yes Status: Acute Plan to address problem: Management as per primary care. (3) Cardiac arrest with successful resuscitation Current Visit: Yes Status: Acute Plan to address problem: Patient successfully resucitated. Alert, awake. S/P trach. Trach tube capped. On 2 litres O2. O2 saturation 96%. (4) Increased ammonia level Current Visit: Yes Status: Acute Plan to address problem: Management as per primary care. (5) Seizure disorder Current Visit: Yes Status: Acute Plan to address problem: Management as per primary care and neurology. (6) HTN (hypertension) Current Visit: No Status: Acute Plan to address problem: Management as per primary care. Subjective Date of service: 03/17/20 Principal diagnosis: Ac cardiopulmonary arrest; Ac hypoxemic resp failure; Acute encephalopathy Interval history: Patients Trach tube is capped. Patient is on 3 litres O2. o2 saturation running 96%.Patient S/P Wound around trach tube. Recommend cleaning and tracheostomy care. Dressing applied.Recommend frequent respiratory suctioning. Continue bronchodilators.Patient afebrile and has no leukocytosis. Chest xray 03/12/20 reported no acute findings. Tracheostomy tube in place. ABGS: ABG pH 7.433 pH Units (7.350-7.450) 03/08/20 13:25 ABG pCO2 40.2 mm Hg 03/08/20 13:25 ABG pO2 71.1 mm Hg (80.0-90.0) L 03/08/20 13:25 ABG O2 Saturation 97.0 % (95.0-99.0) 03/08/20 13:25 on room air Patient alert, awake. Still agitating at times. No acute respiratory distress. Objective Vital Signs - 12hr 03/17/20 03/17/20 03/17/20 04:03 08:00 08:14 Temperature 98.2 F 98.0 F Pulse Rate 76 Respiratory 18 22 18 Rate Blood Pressure 142/78 119/82 Blood Pressure [Left] O2 Sat by Pulse 100 100 Oximetry 03/17/20 12:00 Temperature 97.7 F Pulse Rate 90 Respiratory 22 Rate Blood Pressure Blood Pressure 125/86 [Left] O2 Sat by Pulse 96 Oximetry Constitutional: no acute distress, alert, other (Agitating.) Eyes: non-icteric ENT: oropharynx moist, other (s/p trach) Neck: supple, no lymphadenopathy, no JVD Effort: normal Ascultation: Bilateral: diminished breath sounds, rhonchi Percussion: Bilateral: not dull Cardiovascular: regular rate and rhythm (tachycardia), other (S1,S2) Gastrointestinal: normoactive bowel sounds, soft, non-tender, non-distended Integumentary: normal Extremities: no cyanosis, no edema, pulses normal, no ischemia or petechiae Neurologic: normal mental status, non-focal exam, pupils equal and round, CN II- XII normal, motor strength normal and Psychiatric: anxious CBC and BMP: 03/12/20 04:53 03/13/20 03:50 ABG, PT/INR, D-dimer: ABG ABG pH 7.433 pH Units (7.350-7.450) 03/08/20 13:25 ABG pCO2 40.2 mm Hg 03/08/20 13:25 ABG pO2 71.1 mm Hg (80.0-90.0) L 03/08/20 13:25 ABG O2 Saturation 97.0 % (95.0-99.0) 03/08/20 13:25 PT/INR, D-dimer PT 17.0 Sec. (12.2-14.9) H 11/23/19 03:47 INR 1.36 (0.87-1.13) H 11/23/19 03:47 Abnormal lab findings: Abnormal Labs 11/22/19 11/22/19 11/22/19 23:17 23:18 23:27 WBC 21.2 H RBC 3.59 L Hgb 9.8 L Hct MCH 27 L RDW 18.6 H Plt Count 454 H Lymph % (Auto) [place] % (Auto) [place] # Baso # Seg Neutrophils % Seg Neuts % (Manual) 86.0 H Lymphocytes % (Manual) 9.0 L Monocytes % (Manual) Seg Neutrophils # Seg Neutrophils # Man 18.2 H Lymphocytes # (Manual) Monocytes # (Manual) 1.1 H Eosinophils # (Manual) Basophils # (Manual) PT INR APTT ABG pH ABG pO2 ABG HCO3 ABG O2 Saturation ABG Base Excess ABG Hemoglobin Oxyhemoglobin Sodium Potassium Chloride Carbon Dioxide BUN Creatinine Glucose POC Glucose 53 L Lactic Acid Calcium Ionized Calcium Phosphorus Magnesium Total Bilirubin AST ALT Alkaline Phosphatase Ammonia Total Creatine Kinase CK-MB (CK-2) CK-MB (CK-2) Rel Index Total Protein Albumin Urine WBC (Auto) 40.0 H Vancomycin Trough Salicylates Acetaminophen Plasma/Serum Alcohol Crossmatch 11/22/19 11/22/19 11/22/19 23:27 23:27 23:27 WBC RBC Hgb Hct MCH RDW Plt Count Lymph % (Auto) [place] % (Auto) [place] # Baso # Seg Neutrophils % Seg Neuts % (Manual) Lymphocytes % (Manual) Monocytes % (Manual) Seg Neutrophils # Seg Neutrophils # Man Lymphocytes # (Manual) Monocytes # (Manual) Eosinophils # (Manual) Basophils # (Manual) PT INR APTT ABG pH ABG pO2 ABG HCO3 ABG O2 Saturation ABG Base Excess ABG Hemoglobin Oxyhemoglobin Sodium Potassium 2.4 L* Chloride 85.1 L Carbon Dioxide 19 L BUN Creatinine 0.5 L Glucose 261 H POC Glucose Lactic Acid Calcium Ionized Calcium Phosphorus Magnesium Total Bilirubin AST 609 H ALT 152 H Alkaline Phosphatase 160 H Ammonia 117.0 H Total Creatine Kinase 139 H CK-MB (CK-2) 8.3 H CK-MB (CK-2) Rel Index 5.9 H Total Protein Albumin 3.6 L Urine WBC (Auto) Vancomycin Trough Salicylates < 0.3 L Acetaminophen Plasma/Serum Alcohol Crossmatch 11/22/19 11/22/19 11/23/19 23:27 23:27 01:10 WBC RBC Hgb Hct MCH RDW Plt Count Lymph % (Auto) [place] % (Auto) [place] # Baso # Seg Neutrophils % Seg Neuts % (Manual) Lymphocytes % (Manual) Monocytes % (Manual) Seg Neutrophils # Seg Neutrophils # Man Lymphocytes # (Manual) Monocytes # (Manual) Eosinophils # (Manual) Basophils # (Manual) PT INR APTT ABG pH 7.273 L ABG pO2 209.7 H ABG HCO3 ABG O2 Saturation 99.2 H ABG Base Excess -3.9 L ABG Hemoglobin 10.6 L Oxyhemoglobin 93.9 L Sodium Potassium Chloride Carbon Dioxide BUN Creatinine Glucose POC Glucose Lactic Acid Calcium Ionized Calcium Phosphorus Magnesium Total Bilirubin AST ALT Alkaline Phosphatase Ammonia Total Creatine Kinase CK-MB (CK-2) CK-MB (CK-2) Rel Index Total Protein Albumin Urine WBC (Auto) Vancomycin Trough Salicylates Acetaminophen < 5.0 L Plasma/Serum Alcohol 0.08 H Crossmatch 11/23/19 11/23/19 11/23/19 01:19 01:19 03:47 WBC RBC Hgb Hct MCH RDW Plt Count Lymph % (Auto) [place] % (Auto) [place] # Baso # Seg Neutrophils % Seg Neuts % (Manual) Lymphocytes % (Manual) Monocytes % (Manual) Seg Neutrophils # Seg Neutrophils # Man Lymphocytes # (Manual) Monocytes # (Manual) Eosinophils # (Manual) Basophils # (Manual) PT 16.3 H INR 1.29 H APTT ABG pH ABG pO2 ABG HCO3 ABG O2 Saturation ABG Base Excess ABG Hemoglobin Oxyhemoglobin Sodium Potassium Chloride Carbon Dioxide BUN Creatinine Glucose POC Glucose Lactic Acid 2.10 H* 5.00 H* Calcium Ionized Calcium Phosphorus Magnesium Total Bilirubin AST ALT Alkaline Phosphatase Ammonia Total Creatine Kinase CK-MB (CK-2) CK-MB (CK-2) Rel Index Total Protein Albumin Urine WBC (Auto) Vancomycin Trough Salicylates Acetaminophen Plasma/Serum Alcohol Crossmatch 11/23/19 11/23/19 11/23/19 03:47 03:47 04:53 WBC RBC Hgb 9.4 L Hct MCH RDW Plt Count Lymph % (Auto) [place] % (Auto) [place] # Baso # Seg Neutrophils % Seg Neuts % (Manual) Lymphocytes % (Manual) Monocytes % (Manual) Seg Neutrophils # Seg Neutrophils # Man Lymphocytes # (Manual) Monocytes # (Manual) Eosinophils # (Manual) Basophils # (Manual) PT 17.0 H INR 1.36 H APTT 128.2 H* ABG pH ABG pO2 ABG HCO3 ABG O2 Saturation ABG Base Excess ABG Hemoglobin Oxyhemoglobin Sodium Potassium Chloride Carbon Dioxide 18 L BUN Creatinine 0.5 L Glucose 105 H POC Glucose Lactic Acid Calcium 8.3 L Ionized Calcium Phosphorus 2.40 L Magnesium Total Bilirubin 1.30 H AST 761 H ALT 158 H Alkaline Phosphatase 143 H Ammonia Total Creatine Kinase CK-MB (CK-2) CK-MB (CK-2) Rel Index Total Protein Albumin 2.8 L Urine WBC (Auto) Vancomycin Trough Salicylates Acetaminophen Plasma/Serum Alcohol Crossmatch 11/23/19 11/23/19 11/23/19 05:12 06:32 06:32 WBC 16.8 H RBC 3.31 L Hgb 8.9 L Hct 28.7 L MCH 27 L RDW 18.6 H Plt Count Lymph % (Auto) [place] % (Auto) [place] # Baso # Seg Neutrophils % Seg Neuts % (Manual) 94.0 H Lymphocytes % (Manual) 1.0 L Monocytes % (Manual) Seg Neutrophils # Seg Neutrophils # Man 15.8 H Lymphocytes # (Manual) 0.2 L Monocytes # (Manual) Eosinophils # (Manual) Basophils # (Manual) PT INR APTT ABG pH ABG pO2 ABG HCO3 ABG O2 Saturation ABG Base Excess -3.2 L ABG Hemoglobin 9.0 L Oxyhemoglobin 93.6 L Sodium Potassium Chloride Carbon Dioxide BUN Creatinine Glucose POC Glucose Lactic Acid Calcium Ionized Calcium 4.5 L Phosphorus Magnesium Total Bilirubin AST ALT Alkaline Phosphatase Ammonia Total Creatine Kinase CK-MB (CK-2) CK-MB (CK-2) Rel Index Total Protein Albumin Urine WBC (Auto) Vancomycin Trough Salicylates Acetaminophen Plasma/Serum Alcohol Crossmatch 11/23/19 11/24/19 11/24/19 06:32 04:35 04:35 WBC RBC Hgb Hct MCH RDW Plt Count Lymph % (Auto) [place] % (Auto) [place] # Baso # Seg Neutrophils % Seg Neuts % (Manual) Lymphocytes % (Manual) Monocytes % (Manual) Seg Neutrophils # Seg Neutrophils # Man Lymphocytes # (Manual) Monocytes # (Manual) Eosinophils # (Manual) Basophils # (Manual) PT INR APTT ABG pH ABG pO2 ABG HCO3 ABG O2 Saturation ABG Base Excess ABG Hemoglobin Oxyhemoglobin Sodium Potassium Chloride Carbon Dioxide BUN Creatinine Glucose POC Glucose Lactic Acid 3.30 H* Calcium Ionized Calcium Phosphorus Magnesium 1.40 L Total Bilirubin AST ALT Alkaline Phosphatase Ammonia 98.0 H Total Creatine Kinase CK-MB (CK-2) CK-MB (CK-2) Rel Index Total Protein Albumin Urine WBC (Auto) Vancomycin Trough Salicylates Acetaminophen Plasma/Serum Alcohol Crossmatch 11/24/19 11/25/19 11/25/19 05:22 04:34 05:05 WBC 17.3 H RBC 2.88 L Hgb 7.8 L Hct 24.6 L MCH 27 L RDW 18.5 H Plt Count Lymph % (Auto) 7.7 L [place] % (Auto) 9.7 H [place] # 1.7 H Baso # Seg Neutrophils % 82.2 H Seg Neuts % (Manual) Lymphocytes % (Manual) Monocytes % (Manual) Seg Neutrophils # 14.2 H Seg Neutrophils # Man Lymphocytes # (Manual) Monocytes # (Manual) Eosinophils # (Manual) Basophils # (Manual) PT INR APTT ABG pH 7.475 H ABG pO2 ABG HCO3 29.4 H 32.3 H ABG O2 Saturation ABG Base Excess 5.4 H 6.9 H ABG Hemoglobin 9.0 L 10.6 L Oxyhemoglobin 94.3 L Sodium Potassium Chloride Carbon Dioxide BUN Creatinine Glucose POC Glucose Lactic Acid Calcium Ionized Calcium Phosphorus Magnesium Total Bilirubin AST ALT Alkaline Phosphatase Ammonia Total Creatine Kinase CK-MB (CK-2) CK-MB (CK-2) Rel Index Total Protein Albumin Urine WBC (Auto) Vancomycin Trough Salicylates Acetaminophen Plasma/Serum Alcohol Crossmatch 11/25/19 11/25/19 11/26/19 05:05 22:46 03:31 WBC RBC Hgb Hct MCH RDW Plt Count Lymph % (Auto) [place] % (Auto) [place] # Baso # Seg Neutrophils % Seg Neuts % (Manual) Lymphocytes % (Manual) Monocytes % (Manual) Seg Neutrophils # Seg Neutrophils # Man Lymphocytes # (Manual) Monocytes # (Manual) Eosinophils # (Manual) Basophils # (Manual) PT INR APTT ABG pH 7.459 H ABG pO2 ABG HCO3 34.2 H ABG O2 Saturation ABG Base Excess 9.4 H ABG Hemoglobin 7.6 L Oxyhemoglobin 94.8 L Sodium 152 H D 147 H Potassium 2.3 L* D 2.8 L* D Chloride 107.8 H Carbon Dioxide 31 H D 33 H BUN Creatinine 0.6 L 0.6 L Glucose 148 H 177 H POC Glucose Lactic Acid Calcium Ionized Calcium Phosphorus Magnesium Total Bilirubin AST 105 H ALT 71 H Alkaline Phosphatase 155 H Ammonia Total Creatine Kinase CK-MB (CK-2) CK-MB (CK-2) Rel Index Total Protein 5.2 L D Albumin 2.9 L Urine WBC (Auto) Vancomycin Trough Salicylates Acetaminophen Plasma/Serum Alcohol Crossmatch 11/26/19 11/26/19 11/27/19 08:24 08:24 04:20 WBC 12.0 H RBC 3.00 L Hgb 8.0 L 9.3 L Hct 25.9 L 29.7 L MCH 27 L RDW 18.5 H Plt Count Lymph % (Auto) [place] % (Auto) [place] # Baso # Seg Neutrophils % Seg Neuts % (Manual) 89.0 H Lymphocytes % (Manual) 4.0 L Monocytes % (Manual) Seg Neutrophils # Seg Neutrophils # Man 10.7 H Lymphocytes # (Manual) 0.5 L Monocytes # (Manual) Eosinophils # (Manual) Basophils # (Manual) PT INR APTT ABG pH ABG pO2 ABG HCO3 ABG O2 Saturation ABG Base Excess ABG Hemoglobin Oxyhemoglobin Sodium 146 H Potassium 3.4 L D Chloride Carbon Dioxide BUN Creatinine 0.5 L Glucose 165 H POC Glucose Lactic Acid Calcium Ionized Calcium Phosphorus Magnesium Total Bilirubin AST 57 H ALT Alkaline Phosphatase 166 H Ammonia Total Creatine Kinase CK-MB (CK-2) CK-MB (CK-2) Rel Index Total Protein Albumin 2.9 L Urine WBC (Auto) Vancomycin Trough Salicylates Acetaminophen Plasma/Serum Alcohol Crossmatch 11/27/19 11/27/19 11/27/19 04:28 04:28 04:42 WBC RBC Hgb Hct MCH RDW Plt Count Lymph % (Auto) [place] % (Auto) [place] # Baso # Seg Neutrophils % Seg Neuts % (Manual) Lymphocytes % (Manual) Monocytes % (Manual) Seg Neutrophils # Seg Neutrophils # Man Lymphocytes # (Manual) Monocytes # (Manual) Eosinophils # (Manual) Basophils # (Manual) PT INR APTT ABG pH 7.470 H ABG pO2 74.0 L ABG HCO3 33.8 H ABG O2 Saturation ABG Base Excess 9.1 H ABG Hemoglobin 8.7 L Oxyhemoglobin 94.7 L Sodium 146 H Potassium 2.9 L* Chloride Carbon Dioxide BUN 25 H Creatinine Glucose 213 H POC Glucose Lactic Acid Calcium Ionized Calcium Phosphorus 1.00 L Magnesium Total Bilirubin AST ALT Alkaline Phosphatase Ammonia Total Creatine Kinase CK-MB (CK-2) CK-MB (CK-2) Rel Index Total Protein Albumin Urine WBC (Auto) Vancomycin Trough Salicylates Acetaminophen Plasma/Serum Alcohol Crossmatch 11/27/19 11/27/19 11/27/19 05:37 12:20 15:46 WBC RBC Hgb Hct MCH RDW Plt Count Lymph % (Auto) [place] % (Auto) [place] # Baso # Seg Neutrophils % Seg Neuts % (Manual) Lymphocytes % (Manual) Monocytes % (Manual) Seg Neutrophils # Seg Neutrophils # Man Lymphocytes # (Manual) Monocytes # (Manual) Eosinophils # (Manual) Basophils # (Manual) PT INR APTT ABG pH ABG pO2 ABG HCO3 ABG O2 Saturation ABG Base Excess ABG Hemoglobin Oxyhemoglobin Sodium 146 H Potassium 3.5 L D Chloride Carbon Dioxide BUN 24 H Creatinine 0.6 L Glucose 187 H POC Glucose 117 H 220 H Lactic Acid Calcium Ionized Calcium Phosphorus Magnesium Total Bilirubin AST ALT Alkaline Phosphatase Ammonia Total Creatine Kinase CK-MB (CK-2) CK-MB (CK-2) Rel Index Total Protein Albumin Urine WBC (Auto) Vancomycin Trough Salicylates Acetaminophen Plasma/Serum Alcohol Crossmatch 11/27/19 11/28/19 11/28/19 17:28 05:00 05:02 WBC RBC Hgb Hct MCH RDW Plt Count Lymph % (Auto) [place] % (Auto) [place] # Baso # Seg Neutrophils % Seg Neuts % (Manual) Lymphocytes % (Manual) Monocytes % (Manual) Seg Neutrophils # Seg Neutrophils # Man Lymphocytes # (Manual) Monocytes # (Manual) Eosinophils # (Manual) Basophils # (Manual) PT INR APTT ABG pH ABG pO2 72.4 L ABG HCO3 33.6 H ABG O2 Saturation 94.1 L ABG Base Excess 7.3 H ABG Hemoglobin Oxyhemoglobin 91.8 L Sodium 146 H Potassium 3.3 L Chloride Carbon Dioxide BUN 25 H Creatinine 0.6 L Glucose 176 H POC Glucose 198 H Lactic Acid Calcium Ionized Calcium Phosphorus Magnesium Total Bilirubin AST ALT Alkaline Phosphatase Ammonia Total Creatine Kinase CK-MB (CK-2) CK-MB (CK-2) Rel Index Total Protein Albumin Urine WBC (Auto) Vancomycin Trough Salicylates Acetaminophen Plasma/Serum Alcohol Crossmatch 11/28/19 11/28/19 11/29/19 05:02 18:55 10:43 WBC 15.2 H 19.0 H RBC 3.06 L 3.01 L Hgb 8.3 L 8.3 L Hct 27.0 L 26.4 L MCH 27 L RDW 19.0 H 19.7 H Plt Count 479 H 611 H Lymph % (Auto) [place] % (Auto) [place] # Baso # Seg Neutrophils % Seg Neuts % (Manual) 92.0 H Lymphocytes % (Manual) 2.0 L Monocytes % (Manual) Seg Neutrophils # Seg Neutrophils # Man 14.0 H Lymphocytes # (Manual) 0.3 L Monocytes # (Manual) Eosinophils # (Manual) Basophils # (Manual) PT INR APTT ABG pH ABG pO2 ABG HCO3 ABG O2 Saturation ABG Base Excess ABG Hemoglobin Oxyhemoglobin Sodium Potassium Chloride Carbon Dioxide BUN Creatinine Glucose POC Glucose 138 H Lactic Acid Calcium Ionized Calcium Phosphorus Magnesium Total Bilirubin AST ALT Alkaline Phosphatase Ammonia Total Creatine Kinase CK-MB (CK-2) CK-MB (CK-2) Rel Index Total Protein Albumin Urine WBC (Auto) Vancomycin Trough Salicylates Acetaminophen Plasma/Serum Alcohol Crossmatch 11/29/19 11/29/19 11/29/19 10:43 12:27 19:25 WBC RBC Hgb Hct MCH RDW Plt Count Lymph % (Auto) [place] % (Auto) [place] # Baso # Seg Neutrophils % Seg Neuts % (Manual) Lymphocytes % (Manual) Monocytes % (Manual) Seg Neutrophils # Seg Neutrophils # Man Lymphocytes # (Manual) Monocytes # (Manual) Eosinophils # (Manual) Basophils # (Manual) PT INR APTT ABG pH ABG pO2 ABG HCO3 ABG O2 Saturation ABG Base Excess ABG Hemoglobin Oxyhemoglobin Sodium Potassium 2.8 L* Chloride Carbon Dioxide BUN 20 H Creatinine 0.5 L Glucose 121 H POC Glucose 128 H 120 H Lactic Acid Calcium Ionized Calcium Phosphorus Magnesium Total Bilirubin AST ALT Alkaline Phosphatase Ammonia Total Creatine Kinase CK-MB (CK-2) CK-MB (CK-2) Rel Index Total Protein Albumin Urine WBC (Auto) Vancomycin Trough Salicylates Acetaminophen Plasma/Serum Alcohol Crossmatch 11/29/19 11/30/19 11/30/19 23:46 04:10 05:02 WBC RBC Hgb Hct MCH RDW Plt Count Lymph % (Auto) [place] % (Auto) [place] # Baso # Seg Neutrophils % Seg Neuts % (Manual) Lymphocytes % (Manual) Monocytes % (Manual) Seg Neutrophils # Seg Neutrophils # Man Lymphocytes # (Manual) Monocytes # (Manual) Eosinophils # (Manual) Basophils # (Manual) PT INR APTT ABG pH ABG pO2 76.3 L ABG HCO3 32.5 H ABG O2 Saturation ABG Base Excess 6.9 H ABG Hemoglobin 8.0 L Oxyhemoglobin 92.6 L Sodium Potassium Chloride Carbon Dioxide BUN Creatinine Glucose POC Glucose 116 H 128 H Lactic Acid Calcium Ionized Calcium Phosphorus Magnesium Total Bilirubin AST ALT Alkaline Phosphatase Ammonia Total Creatine Kinase CK-MB (CK-2) CK-MB (CK-2) Rel Index Total Protein Albumin Urine WBC (Auto) Vancomycin Trough Salicylates Acetaminophen Plasma/Serum Alcohol Crossmatch 11/30/19 11/30/19 11/30/19 05:25 05:25 12:59 WBC 18.4 H RBC 3.10 L Hgb 8.5 L Hct 27.5 L MCH 27 L RDW 20.9 H Plt Count 691 H Lymph % (Auto) 7.1 L [place] % (Auto) 7.7 H [place] # 1.4 H Baso # Seg Neutrophils % 83.4 H Seg Neuts % (Manual) Lymphocytes % (Manual) Monocytes % (Manual) Seg Neutrophils # 15.4 H Seg Neutrophils # Man Lymphocytes # (Manual) Monocytes # (Manual) Eosinophils # (Manual) Basophils # (Manual) PT INR APTT ABG pH ABG pO2 ABG HCO3 ABG O2 Saturation ABG Base Excess ABG Hemoglobin Oxyhemoglobin Sodium 146 H Potassium Chloride 107.2 H Carbon Dioxide BUN Creatinine 0.5 L Glucose 132 H POC Glucose 124 H Lactic Acid Calcium Ionized Calcium Phosphorus Magnesium Total Bilirubin AST 246 H ALT 274 H Alkaline Phosphatase 203 H Ammonia Total Creatine Kinase CK-MB (CK-2) CK-MB (CK-2) Rel Index Total Protein 5.4 L Albumin 2.9 L Urine WBC (Auto) Vancomycin Trough Salicylates Acetaminophen Plasma/Serum Alcohol Crossmatch 11/30/19 12/01/19 12/01/19 17:53 00:05 05:10 WBC RBC Hgb Hct MCH RDW Plt Count Lymph % (Auto) [place] % (Auto) [place] # Baso # Seg Neutrophils % Seg Neuts % (Manual) Lymphocytes % (Manual) Monocytes % (Manual) Seg Neutrophils # Seg Neutrophils # Man Lymphocytes # (Manual) Monocytes # (Manual) Eosinophils # (Manual) Basophils # (Manual) PT INR APTT ABG pH ABG pO2 ABG HCO3 ABG O2 Saturation ABG Base Excess ABG Hemoglobin Oxyhemoglobin Sodium Potassium Chloride Carbon Dioxide BUN Creatinine Glucose POC Glucose 113 H 143 H 145 H Lactic Acid Calcium Ionized Calcium Phosphorus Magnesium Total Bilirubin AST ALT Alkaline Phosphatase Ammonia Total Creatine Kinase CK-MB (CK-2) CK-MB (CK-2) Rel Index Total Protein Albumin Urine WBC (Auto) Vancomycin Trough Salicylates Acetaminophen Plasma/Serum Alcohol Crossmatch 12/01/19 12/01/19 12/01/19 05:33 08:23 08:23 WBC 22.7 H RBC 2.88 L Hgb 7.9 L Hct 25.2 L MCH 27 L RDW 21.0 H Plt Count 732 H Lymph % (Auto) [place] % (Auto) [place] # Baso # Seg Neutrophils % Seg Neuts % (Manual) 91.0 H Lymphocytes % (Manual) 3.0 L Monocytes % (Manual) Seg Neutrophils # Seg Neutrophils # Man 20.7 H Lymphocytes # (Manual) 0.7 L Monocytes # (Manual) 1.1 H Eosinophils # (Manual) Basophils # (Manual) PT INR APTT ABG pH ABG pO2 68.6 L ABG HCO3 34.1 H ABG O2 Saturation ABG Base Excess 9.0 H ABG Hemoglobin 6.5 L Oxyhemoglobin 94.7 L Sodium Potassium Chloride Carbon Dioxide BUN Creatinine 0.5 L Glucose 125 H POC Glucose Lactic Acid Calcium Ionized Calcium Phosphorus Magnesium Total Bilirubin AST ALT Alkaline Phosphatase Ammonia Total Creatine Kinase CK-MB (CK-2) CK-MB (CK-2) Rel Index Total Protein Albumin Urine WBC (Auto) Vancomycin Trough Salicylates Acetaminophen Plasma/Serum Alcohol Crossmatch 12/01/19 12/01/19 12/01/19 13:21 17:54 20:59 WBC RBC Hgb Hct MCH RDW Plt Count Lymph % (Auto) [place] % (Auto) [place] # Baso # Seg Neutrophils % Seg Neuts % (Manual) Lymphocytes % (Manual) Monocytes % (Manual) Seg Neutrophils # Seg Neutrophils # Man Lymphocytes # (Manual) Monocytes # (Manual) Eosinophils # (Manual) Basophils # (Manual) PT INR APTT ABG pH ABG pO2 78.3 L ABG HCO3 33.8 H ABG O2 Saturation 94.9 L ABG Base Excess 7.9 H ABG Hemoglobin 11.5 L Oxyhemoglobin 92.3 L Sodium Potassium Chloride Carbon Dioxide BUN Creatinine Glucose POC Glucose 111 H 115 H Lactic Acid Calcium Ionized Calcium Phosphorus Magnesium Total Bilirubin AST ALT Alkaline Phosphatase Ammonia Total Creatine Kinase CK-MB (CK-2) CK-MB (CK-2) Rel Index Total Protein Albumin Urine WBC (Auto) Vancomycin Trough Salicylates Acetaminophen Plasma/Serum Alcohol Crossmatch 12/02/19 12/03/19 12/04/19 12:55 20:00 04:26 WBC 15.2 H RBC 2.69 L Hgb 7.4 L Hct 23.6 L MCH 27 L RDW 19.9 H Plt Count 838 H Lymph % (Auto) [place] % (Auto) [place] # Baso # Seg Neutrophils % Seg Neuts % (Manual) Lymphocytes % (Manual) Monocytes % (Manual) Seg Neutrophils # Seg Neutrophils # Man Lymphocytes # (Manual) Monocytes # (Manual) Eosinophils # (Manual) Basophils # (Manual) PT INR APTT ABG pH ABG pO2 68.3 L ABG HCO3 33.5 H ABG O2 Saturation 93.5 L ABG Base Excess 8.4 H ABG Hemoglobin 7.3 L Oxyhemoglobin 90.9 L Sodium Potassium Chloride Carbon Dioxide BUN Creatinine Glucose POC Glucose 107 H Lactic Acid Calcium Ionized Calcium Phosphorus Magnesium Total Bilirubin AST ALT Alkaline Phosphatase Ammonia Total Creatine Kinase CK-MB (CK-2) CK-MB (CK-2) Rel Index Total Protein Albumin Urine WBC (Auto) Vancomycin Trough Salicylates Acetaminophen Plasma/Serum Alcohol Crossmatch 12/04/19 12/04/19 12/04/19 04:26 07:45 12:02 WBC 15.9 H RBC 2.88 L Hgb 7.9 L Hct 25.1 L MCH RDW 20.4 H Plt Count 839 H Lymph % (Auto) 11.3 L [place] % (Auto) 15.2 H [place] # 2.4 H Baso # Seg Neutrophils % 72.4 H Seg Neuts % (Manual) Lymphocytes % (Manual) Monocytes % (Manual) Seg Neutrophils # 11.5 H Seg Neutrophils # Man Lymphocytes # (Manual) Monocytes # (Manual) Eosinophils # (Manual) Basophils # (Manual) PT INR APTT ABG pH ABG pO2 ABG HCO3 ABG O2 Saturation ABG Base Excess ABG Hemoglobin Oxyhemoglobin Sodium Potassium Chloride 96.5 L Carbon Dioxide BUN 21 H Creatinine 0.6 L Glucose 107 H POC Glucose 138 H Lactic Acid Calcium Ionized Calcium Phosphorus Magnesium Total Bilirubin AST ALT Alkaline Phosphatase Ammonia Total Creatine Kinase CK-MB (CK-2) CK-MB (CK-2) Rel Index Total Protein Albumin Urine WBC (Auto) Vancomycin Trough Salicylates Acetaminophen Plasma/Serum Alcohol Crossmatch 12/04/19 12/05/19 12/05/19 18:16 11:55 18:36 WBC RBC Hgb Hct MCH RDW Plt Count Lymph % (Auto) [place] % (Auto) [place] # Baso # Seg Neutrophils % Seg Neuts % (Manual) Lymphocytes % (Manual) Monocytes % (Manual) Seg Neutrophils # Seg Neutrophils # Man Lymphocytes # (Manual) Monocytes # (Manual) Eosinophils # (Manual) Basophils # (Manual) PT INR APTT ABG pH ABG pO2 ABG HCO3 ABG O2 Saturation ABG Base Excess ABG Hemoglobin Oxyhemoglobin Sodium Potassium Chloride Carbon Dioxide BUN Creatinine Glucose POC Glucose 135 H 125 H 135 H Lactic Acid Calcium Ionized Calcium Phosphorus Magnesium Total Bilirubin AST ALT Alkaline Phosphatase Ammonia Total Creatine Kinase CK-MB (CK-2) CK-MB (CK-2) Rel Index Total Protein Albumin Urine WBC (Auto) Vancomycin Trough Salicylates Acetaminophen Plasma/Serum Alcohol Crossmatch 12/05/19 12/06/19 12/06/19 23:30 04:14 05:43 WBC RBC Hgb Hct MCH RDW Plt Count Lymph % (Auto) [place] % (Auto) [place] # Baso # Seg Neutrophils % Seg Neuts % (Manual) Lymphocytes % (Manual) Monocytes % (Manual) Seg Neutrophils # Seg Neutrophils # Man Lymphocytes # (Manual) Monocytes # (Manual) Eosinophils # (Manual) Basophils # (Manual) PT INR APTT ABG pH ABG pO2 ABG HCO3 ABG O2 Saturation ABG Base Excess ABG Hemoglobin Oxyhemoglobin Sodium Potassium 5.6 H Chloride 95.0 L Carbon Dioxide BUN 48 H Creatinine 1.3 H D Glucose POC Glucose 126 H 121 H Lactic Acid Calcium Ionized Calcium Phosphorus Magnesium Total Bilirubin AST 89 H ALT 98 H Alkaline Phosphatase 476 H Ammonia Total Creatine Kinase CK-MB (CK-2) CK-MB (CK-2) Rel Index Total Protein Albumin 2.8 L Urine WBC (Auto) Vancomycin Trough Salicylates Acetaminophen Plasma/Serum Alcohol Crossmatch 12/06/19 12/06/19 12/07/19 10:39 14:34 00:19 WBC 17.3 H RBC 2.60 L Hgb 7.1 L Hct 22.7 L MCH 27 L RDW 20.1 H Plt Count 832 H Lymph % (Auto) [place] % (Auto) [place] # Baso # Seg Neutrophils % Seg Neuts % (Manual) Lymphocytes % (Manual) Monocytes % (Manual) Seg Neutrophils # Seg Neutrophils # Man Lymphocytes # (Manual) Monocytes # (Manual) Eosinophils # (Manual) Basophils # (Manual) PT INR APTT ABG pH ABG pO2 ABG HCO3 ABG O2 Saturation ABG Base Excess ABG Hemoglobin Oxyhemoglobin Sodium Potassium Chloride Carbon Dioxide BUN Creatinine Glucose POC Glucose 128 H 136 H Lactic Acid Calcium Ionized Calcium Phosphorus Magnesium Total Bilirubin AST ALT Alkaline Phosphatase Ammonia Total Creatine Kinase CK-MB (CK-2) CK-MB (CK-2) Rel Index Total Protein Albumin Urine WBC (Auto) Vancomycin Trough Salicylates Acetaminophen Plasma/Serum Alcohol Crossmatch 12/07/19 12/07/19 12/07/19 03:44 03:44 05:53 WBC 16.2 H RBC 2.56 L Hgb 7.1 L Hct 22.3 L MCH RDW 19.4 H Plt Count 782 H Lymph % (Auto) [place] % (Auto) [place] # Baso # Seg Neutrophils % Seg Neuts % (Manual) Lymphocytes % (Manual) Monocytes % (Manual) Seg Neutrophils # Seg Neutrophils # Man Lymphocytes # (Manual) Monocytes # (Manual) Eosinophils # (Manual) Basophils # (Manual) PT INR APTT ABG pH ABG pO2 ABG HCO3 ABG O2 Saturation ABG Base Excess ABG Hemoglobin Oxyhemoglobin Sodium Potassium Chloride 95.6 L Carbon Dioxide BUN 56 H Creatinine 1.4 H Glucose 120 H POC Glucose 128 H Lactic Acid Calcium 10.3 H Ionized Calcium Phosphorus Magnesium Total Bilirubin AST ALT Alkaline Phosphatase Ammonia Total Creatine Kinase CK-MB (CK-2) CK-MB (CK-2) Rel Index Total Protein Albumin Urine WBC (Auto) Vancomycin Trough Salicylates Acetaminophen Plasma/Serum Alcohol Crossmatch 12/07/19 12/07/19 12/08/19 12:54 23:47 00:20 WBC RBC Hgb Hct MCH RDW Plt Count Lymph % (Auto) [place] % (Auto) [place] # Baso # Seg Neutrophils % Seg Neuts % (Manual) Lymphocytes % (Manual) Monocytes % (Manual) Seg Neutrophils # Seg Neutrophils # Man Lymphocytes # (Manual) Monocytes # (Manual) Eosinophils # (Manual) Basophils # (Manual) PT INR APTT ABG pH ABG pO2 ABG HCO3 ABG O2 Saturation ABG Base Excess ABG Hemoglobin Oxyhemoglobin Sodium Potassium Chloride Carbon Dioxide BUN Creatinine Glucose POC Glucose 128 H 130 H 124 H Lactic Acid Calcium Ionized Calcium Phosphorus Magnesium Total Bilirubin AST ALT Alkaline Phosphatase Ammonia Total Creatine Kinase CK-MB (CK-2) CK-MB (CK-2) Rel Index Total Protein Albumin Urine WBC (Auto) Vancomycin Trough Salicylates Acetaminophen Plasma/Serum Alcohol Crossmatch 12/08/19 12/08/19 12/08/19 06:38 12:04 18:26 WBC RBC Hgb Hct MCH RDW Plt Count Lymph % (Auto) [place] % (Auto) [place] # Baso # Seg Neutrophils % Seg Neuts % (Manual) Lymphocytes % (Manual) Monocytes % (Manual) Seg Neutrophils # Seg Neutrophils # Man Lymphocytes # (Manual) Monocytes # (Manual) Eosinophils # (Manual) Basophils # (Manual) PT INR APTT ABG pH ABG pO2 ABG HCO3 ABG O2 Saturation ABG Base Excess ABG Hemoglobin Oxyhemoglobin Sodium Potassium Chloride Carbon Dioxide BUN Creatinine Glucose POC Glucose 137 H 129 H 150 H Lactic Acid Calcium Ionized Calcium Phosphorus Magnesium Total Bilirubin AST ALT Alkaline Phosphatase Ammonia Total Creatine Kinase CK-MB (CK-2) CK-MB (CK-2) Rel Index Total Protein Albumin Urine WBC (Auto) Vancomycin Trough Salicylates Acetaminophen Plasma/Serum Alcohol Crossmatch 12/09/19 12/09/19 12/09/19 00:56 05:34 06:13 WBC RBC Hgb Hct MCH RDW Plt Count Lymph % (Auto) [place] % (Auto) [place] # Baso # Seg Neutrophils % Seg Neuts % (Manual) Lymphocytes % (Manual) Monocytes % (Manual) Seg Neutrophils # Seg Neutrophils # Man Lymphocytes # (Manual) Monocytes # (Manual) Eosinophils # (Manual) Basophils # (Manual) PT INR APTT ABG pH ABG pO2 ABG HCO3 ABG O2 Saturation ABG Base Excess ABG Hemoglobin Oxyhemoglobin Sodium 146 H Potassium Chloride Carbon Dioxide BUN 66 H Creatinine 1.9 H Glucose 116 H POC Glucose 130 H 130 H Lactic Acid Calcium Ionized Calcium Phosphorus Magnesium Total Bilirubin AST ALT Alkaline Phosphatase Ammonia Total Creatine Kinase CK-MB (CK-2) CK-MB (CK-2) Rel Index Total Protein Albumin Urine WBC (Auto) Vancomycin Trough Salicylates Acetaminophen Plasma/Serum Alcohol Crossmatch 12/09/19 12/09/19 12/10/19 11:52 17:50 00:14 WBC RBC Hgb Hct MCH RDW Plt Count Lymph % (Auto) [place] % (Auto) [place] # Baso # Seg Neutrophils % Seg Neuts % (Manual) Lymphocytes % (Manual) Monocytes % (Manual) Seg Neutrophils # Seg Neutrophils # Man Lymphocytes # (Manual) Monocytes # (Manual) Eosinophils # (Manual) Basophils # (Manual) PT INR APTT ABG pH ABG pO2 ABG HCO3 ABG O2 Saturation ABG Base Excess ABG Hemoglobin Oxyhemoglobin Sodium Potassium Chloride Carbon Dioxide BUN Creatinine Glucose POC Glucose 135 H 120 H 116 H Lactic Acid Calcium Ionized Calcium Phosphorus Magnesium Total Bilirubin AST ALT Alkaline Phosphatase Ammonia Total Creatine Kinase CK-MB (CK-2) CK-MB (CK-2) Rel Index Total Protein Albumin Urine WBC (Auto) Vancomycin Trough Salicylates Acetaminophen Plasma/Serum Alcohol Crossmatch 12/10/19 12/10/19 12/10/19 05:38 11:38 17:34 WBC RBC Hgb Hct MCH RDW Plt Count Lymph % (Auto) [place] % (Auto) [place] # Baso # Seg Neutrophils % Seg Neuts % (Manual) Lymphocytes % (Manual) Monocytes % (Manual) Seg Neutrophils # Seg Neutrophils # Man Lymphocytes # (Manual) Monocytes # (Manual) Eosinophils # (Manual) Basophils # (Manual) PT INR APTT ABG pH ABG pO2 ABG HCO3 ABG O2 Saturation ABG Base Excess ABG Hemoglobin Oxyhemoglobin Sodium Potassium Chloride Carbon Dioxide BUN Creatinine Glucose POC Glucose 115 H 112 H 130 H Lactic Acid Calcium Ionized Calcium Phosphorus Magnesium Total Bilirubin AST ALT Alkaline Phosphatase Ammonia Total Creatine Kinase CK-MB (CK-2) CK-MB (CK-2) Rel Index Total Protein Albumin Urine WBC (Auto) Vancomycin Trough Salicylates Acetaminophen Plasma/Serum Alcohol Crossmatch 12/11/19 12/11/19 12/11/19 00:20 05:31 12:22 WBC RBC Hgb Hct MCH RDW Plt Count Lymph % (Auto) [place] % (Auto) [place] # Baso # Seg Neutrophils % Seg Neuts % (Manual) Lymphocytes % (Manual) Monocytes % (Manual) Seg Neutrophils # Seg Neutrophils # Man Lymphocytes # (Manual) Monocytes # (Manual) Eosinophils # (Manual) Basophils # (Manual) PT INR APTT ABG pH ABG pO2 ABG HCO3 ABG O2 Saturation ABG Base Excess ABG Hemoglobin Oxyhemoglobin Sodium Potassium Chloride Carbon Dioxide BUN Creatinine Glucose POC Glucose 124 H 132 H 128 H Lactic Acid Calcium Ionized Calcium Phosphorus Magnesium Total Bilirubin AST ALT Alkaline Phosphatase Ammonia Total Creatine Kinase CK-MB (CK-2) CK-MB (CK-2) Rel Index Total Protein Albumin Urine WBC (Auto) Vancomycin Trough Salicylates Acetaminophen Plasma/Serum Alcohol Crossmatch 12/11/19 12/11/19 12/12/19 18:04 23:42 03:51 WBC RBC Hgb Hct MCH RDW Plt Count Lymph % (Auto) [place] % (Auto) [place] # Baso # Seg Neutrophils % Seg Neuts % (Manual) Lymphocytes % (Manual) Monocytes % (Manual) Seg Neutrophils # Seg Neutrophils # Man Lymphocytes # (Manual) Monocytes # (Manual) Eosinophils # (Manual) Basophils # (Manual) PT INR APTT ABG pH ABG pO2 ABG HCO3 ABG O2 Saturation ABG Base Excess ABG Hemoglobin Oxyhemoglobin Sodium 149 H Potassium Chloride Carbon Dioxide 20 L D BUN 77 H Creatinine 2.8 H Glucose POC Glucose 133 H 154 H Lactic Acid Calcium Ionized Calcium Phosphorus Magnesium Total Bilirubin AST ALT Alkaline Phosphatase Ammonia Total Creatine Kinase CK-MB (CK-2) CK-MB (CK-2) Rel Index Total Protein Albumin Urine WBC (Auto) Vancomycin Trough Salicylates Acetaminophen Plasma/Serum Alcohol Crossmatch 12/12/19 12/12/19 12/12/19 05:18 05:26 10:30 WBC 18.0 H RBC 2.51 L Hgb 6.8 L Hct 22.0 L MCH 27 L RDW 19.9 H Plt Count 582 H Lymph % (Auto) [place] % (Auto) [place] # Baso # Seg Neutrophils % Seg Neuts % (Manual) Lymphocytes % (Manual) Monocytes % (Manual) Seg Neutrophils # Seg Neutrophils # Man Lymphocytes # (Manual) Monocytes # (Manual) Eosinophils # (Manual) Basophils # (Manual) PT INR APTT ABG pH ABG pO2 ABG HCO3 ABG O2 Saturation ABG Base Excess ABG Hemoglobin Oxyhemoglobin Sodium Potassium Chloride Carbon Dioxide BUN Creatinine Glucose POC Glucose 135 H Lactic Acid Calcium Ionized Calcium Phosphorus Magnesium Total Bilirubin AST ALT Alkaline Phosphatase Ammonia Total Creatine Kinase CK-MB (CK-2) CK-MB (CK-2) Rel Index Total Protein Albumin Urine WBC (Auto) Vancomycin Trough Salicylates Acetaminophen Plasma/Serum Alcohol Crossmatch See Detail 12/12/19 12/12/19 12/12/19 11:44 18:10 23:21 WBC RBC Hgb Hct MCH RDW Plt Count Lymph % (Auto) [place] % (Auto) [place] # Baso # Seg Neutrophils % Seg Neuts % (Manual) Lymphocytes % (Manual) Monocytes % (Manual) Seg Neutrophils # Seg Neutrophils # Man Lymphocytes # (Manual) Monocytes # (Manual) Eosinophils # (Manual) Basophils # (Manual) PT INR APTT ABG pH ABG pO2 ABG HCO3 ABG O2 Saturation ABG Base Excess ABG Hemoglobin Oxyhemoglobin Sodium Potassium Chloride Carbon Dioxide BUN Creatinine Glucose POC Glucose 108 H 107 H 126 H Lactic Acid Calcium Ionized Calcium Phosphorus Magnesium Total Bilirubin AST ALT Alkaline Phosphatase Ammonia Total Creatine Kinase CK-MB (CK-2) CK-MB (CK-2) Rel Index Total Protein Albumin Urine WBC (Auto) Vancomycin Trough Salicylates Acetaminophen Plasma/Serum Alcohol Crossmatch 12/13/19 12/13/19 12/13/19 05:41 07:48 07:48 WBC 38.3 H RBC 2.37 L Hgb 6.3 L Hct 20.9 L MCH 27 L RDW 20.2 H Plt Count 546 H Lymph % (Auto) [place] % (Auto) [place] # Baso # Seg Neutrophils % Seg Neuts % (Manual) 93.0 H Lymphocytes % (Manual) 1.0 L Monocytes % (Manual) Seg Neutrophils # Seg Neutrophils # Man 35.6 H Lymphocytes # (Manual) 0.4 L Monocytes # (Manual) Eosinophils # (Manual) Basophils # (Manual) 0.4 H PT INR APTT ABG pH ABG pO2 ABG HCO3 ABG O2 Saturation ABG Base Excess ABG Hemoglobin Oxyhemoglobin Sodium 152 H Potassium 3.1 L D Chloride 111.9 H Carbon Dioxide 21 L BUN 53 H Creatinine 1.9 H Glucose 141 H POC Glucose 128 H Lactic Acid Calcium Ionized Calcium Phosphorus Magnesium Total Bilirubin AST ALT Alkaline Phosphatase 316 H Ammonia Total Creatine Kinase CK-MB (CK-2) CK-MB (CK-2) Rel Index Total Protein Albumin 2.4 L Urine WBC (Auto) Vancomycin Trough Salicylates Acetaminophen Plasma/Serum Alcohol Crossmatch 12/13/19 12/13/19 12/14/19 18:17 23:19 05:36 WBC RBC Hgb Hct MCH RDW Plt Count Lymph % (Auto) [place] % (Auto) [place] # Baso # Seg Neutrophils % Seg Neuts % (Manual) Lymphocytes % (Manual) Monocytes % (Manual) Seg Neutrophils # Seg Neutrophils # Man Lymphocytes # (Manual) Monocytes # (Manual) Eosinophils # (Manual) Basophils # (Manual) PT INR APTT ABG pH ABG pO2 ABG HCO3 ABG O2 Saturation ABG Base Excess ABG Hemoglobin Oxyhemoglobin Sodium Potassium Chloride Carbon Dioxide BUN Creatinine Glucose POC Glucose 141 H 158 H 182 H Lactic Acid Calcium Ionized Calcium Phosphorus Magnesium Total Bilirubin AST ALT Alkaline Phosphatase Ammonia Total Creatine Kinase CK-MB (CK-2) CK-MB (CK-2) Rel Index Total Protein Albumin Urine WBC (Auto) Vancomycin Trough Salicylates Acetaminophen Plasma/Serum Alcohol Crossmatch 12/14/19 12/14/19 12/14/19 08:48 08:48 10:31 WBC 33.3 H RBC 2.70 L Hgb 7.9 L 8.0 L Hct 25.3 L 24.0 L MCH RDW 19.2 H Plt Count 476 H Lymph % (Auto) [place] % (Auto) [place] # Baso # Seg Neutrophils % Seg Neuts % (Manual) Lymphocytes % (Manual) Monocytes % (Manual) Seg Neutrophils # Seg Neutrophils # Man Lymphocytes # (Manual) Monocytes # (Manual) Eosinophils # (Manual) Basophils # (Manual) PT INR APTT ABG pH ABG pO2 ABG HCO3 ABG O2 Saturation ABG Base Excess ABG Hemoglobin Oxyhemoglobin Sodium 153 H Potassium 2.5 L* Chloride 114.9 H Carbon Dioxide 20 L BUN 38 H Creatinine 1.4 H Glucose 177 H POC Glucose Lactic Acid Calcium Ionized Calcium Phosphorus Magnesium Total Bilirubin AST ALT Alkaline Phosphatase Ammonia Total Creatine Kinase CK-MB (CK-2) CK-MB (CK-2) Rel Index Total Protein Albumin Urine WBC (Auto) Vancomycin Trough Salicylates Acetaminophen Plasma/Serum Alcohol Crossmatch 12/14/19 12/14/19 12/14/19 12:57 16:15 17:50 WBC RBC Hgb Hct MCH RDW Plt Count Lymph % (Auto) [place] % (Auto) [place] # Baso # Seg Neutrophils % Seg Neuts % (Manual) Lymphocytes % (Manual) Monocytes % (Manual) Seg Neutrophils # Seg Neutrophils # Man Lymphocytes # (Manual) Monocytes # (Manual) Eosinophils # (Manual) Basophils # (Manual) PT INR APTT ABG pH ABG pO2 73.6 L ABG HCO3 ABG O2 Saturation ABG Base Excess ABG Hemoglobin 7.6 L Oxyhemoglobin 94.0 L Sodium Potassium Chloride Carbon Dioxide BUN Creatinine Glucose POC Glucose 174 H 150 H Lactic Acid Calcium Ionized Calcium Phosphorus Magnesium Total Bilirubin AST ALT Alkaline Phosphatase Ammonia Total Creatine Kinase CK-MB (CK-2) CK-MB (CK-2) Rel Index Total Protein Albumin Urine WBC (Auto) Vancomycin Trough Salicylates Acetaminophen Plasma/Serum Alcohol Crossmatch 12/15/19 12/15/19 12/15/19 00:28 05:27 07:23 WBC 30.0 H RBC 3.11 L Hgb 8.6 L Hct 27.7 L MCH RDW 20.0 H Plt Count 473 H Lymph % (Auto) [place] % (Auto) [place] # Baso # Seg Neutrophils % Seg Neuts % (Manual) Lymphocytes % (Manual) Monocytes % (Manual) Seg Neutrophils # Seg Neutrophils # Man Lymphocytes # (Manual) Monocytes # (Manual) Eosinophils # (Manual) Basophils # (Manual) PT INR APTT ABG pH ABG pO2 ABG HCO3 ABG O2 Saturation ABG Base Excess ABG Hemoglobin Oxyhemoglobin Sodium Potassium Chloride Carbon Dioxide BUN Creatinine Glucose POC Glucose 167 H 148 H Lactic Acid Calcium Ionized Calcium Phosphorus Magnesium Total Bilirubin AST ALT Alkaline Phosphatase Ammonia Total Creatine Kinase CK-MB (CK-2) CK-MB (CK-2) Rel Index Total Protein Albumin Urine WBC (Auto) Vancomycin Trough Salicylates Acetaminophen Plasma/Serum Alcohol Crossmatch 12/15/19 12/15/1920 07:23 12:21 17:41 WBC RBC Hgb Hct MCH RDW Plt Count Lymph % (Auto) [place] % (Auto) [place] # Baso # Seg Neutrophils % Seg Neuts % (Manual) Lymphocytes % (Manual) Monocytes % (Manual) Seg Neutrophils # Seg Neutrophils # Man Lymphocytes # (Manual) Monocytes # (Manual) Eosinophils # (Manual) Basophils # (Manual) PT INR APTT ABG pH ABG pO2 ABG HCO3 ABG O2 Saturation ABG Base Excess ABG Hemoglobin Oxyhemoglobin Sodium 147 H Potassium 3.5 L D Chloride 111.2 H Carbon Dioxide 19 L BUN 29 H Creatinine Glucose 126 H POC Glucose 154 H 144 H Lactic Acid Calcium Ionized Calcium Phosphorus Magnesium Total Bilirubin AST ALT Alkaline Phosphatase Ammonia Total Creatine Kinase CK-MB (CK-2) CK-MB (CK-2) Rel Index Total Protein Albumin Urine WBC (Auto) Vancomycin Trough Salicylates Acetaminophen Plasma/Serum Alcohol Crossmatch 12/16/19 12/16/19 12/16/19 00:22 05:30 05:44 WBC 30.8 H RBC 2.58 L Hgb 7.1 L Hct 22.7 L MCH RDW 19.6 H Plt Count 451 H Lymph % (Auto) [place] % (Auto) [place] # Baso # Seg Neutrophils % Seg Neuts % (Manual) Lymphocytes % (Manual) Monocytes % (Manual) Seg Neutrophils # Seg Neutrophils # Man Lymphocytes # (Manual) Monocytes # (Manual) Eosinophils # (Manual) Basophils # (Manual) PT INR APTT ABG pH ABG pO2 ABG HCO3 ABG O2 Saturation ABG Base Excess ABG Hemoglobin Oxyhemoglobin Sodium Potassium Chloride Carbon Dioxide BUN Creatinine Glucose POC Glucose 139 H 126 H Lactic Acid Calcium Ionized Calcium Phosphorus Magnesium Total Bilirubin AST ALT Alkaline Phosphatase Ammonia Total Creatine Kinase CK-MB (CK-2) CK-MB (CK-2) Rel Index Total Protein Albumin Urine WBC (Auto) Vancomycin Trough Salicylates Acetaminophen Plasma/Serum Alcohol Crossmatch 12/16/19 12/16/19 12/16/19 05:44 11:48 17:37 WBC RBC Hgb Hct MCH RDW Plt Count Lymph % (Auto) [place] % (Auto) [place] # Baso # Seg Neutrophils % Seg Neuts % (Manual) Lymphocytes % (Manual) Monocytes % (Manual) Seg Neutrophils # Seg Neutrophils # Man Lymphocytes # (Manual) Monocytes # (Manual) Eosinophils # (Manual) Basophils # (Manual) PT INR APTT ABG pH ABG pO2 ABG HCO3 ABG O2 Saturation ABG Base Excess ABG Hemoglobin Oxyhemoglobin Sodium Potassium 3.4 L Chloride 109.2 H Carbon Dioxide 19 L BUN 27 H Creatinine Glucose 124 H POC Glucose 125 H 148 H Lactic Acid Calcium Ionized Calcium Phosphorus Magnesium Total Bilirubin AST ALT Alkaline Phosphatase Ammonia Total Creatine Kinase CK-MB (CK-2) CK-MB (CK-2) Rel Index Total Protein Albumin Urine WBC (Auto) Vancomycin Trough Salicylates Acetaminophen Plasma/Serum Alcohol Crossmatch 12/16/19 12/17/19 12/17/19 23:43 05:28 12:47 WBC RBC Hgb Hct MCH RDW Plt Count Lymph % (Auto) [place] % (Auto) [place] # Baso # Seg Neutrophils % Seg Neuts % (Manual) Lymphocytes % (Manual) Monocytes % (Manual) Seg Neutrophils # Seg Neutrophils # Man Lymphocytes # (Manual) Monocytes # (Manual) Eosinophils # (Manual) Basophils # (Manual) PT INR APTT ABG pH ABG pO2 ABG HCO3 ABG O2 Saturation ABG Base Excess ABG Hemoglobin Oxyhemoglobin Sodium Potassium Chloride Carbon Dioxide BUN Creatinine Glucose POC Glucose 142 H 140 H 125 H Lactic Acid Calcium Ionized Calcium Phosphorus Magnesium Total Bilirubin AST ALT Alkaline Phosphatase Ammonia Total Creatine Kinase CK-MB (CK-2) CK-MB (CK-2) Rel Index Total Protein Albumin Urine WBC (Auto) Vancomycin Trough Salicylates Acetaminophen Plasma/Serum Alcohol Crossmatch 12/17/19 12/17/19 12/17/19 17:05 18:00 Unknown WBC RBC Hgb Hct MCH RDW Plt Count Lymph % (Auto) [place] % (Auto) [place] # Baso # Seg Neutrophils % Seg Neuts % (Manual) Lymphocytes % (Manual) Monocytes % (Manual) Seg Neutrophils # Seg Neutrophils # Man Lymphocytes # (Manual) Monocytes # (Manual) Eosinophils # (Manual) Basophils # (Manual) PT INR APTT ABG pH ABG pO2 68.1 L ABG HCO3 ABG O2 Saturation 93.7 L ABG Base Excess ABG Hemoglobin 5.0 L Oxyhemoglobin 91.7 L Sodium Potassium Chloride Carbon Dioxide BUN Creatinine Glucose POC Glucose 140 H Lactic Acid Calcium Ionized Calcium Phosphorus Magnesium Total Bilirubin AST ALT Alkaline Phosphatase Ammonia Total Creatine Kinase CK-MB (CK-2) CK-MB (CK-2) Rel Index Total Protein Albumin Urine WBC (Auto) Vancomycin Trough Salicylates Acetaminophen Plasma/Serum Alcohol Crossmatch 12/18/19 12/18/19 12/18/19 00:16 04:53 04:53 WBC 28.6 H RBC 2.27 L Hgb 6.3 L Hct 19.5 L* MCH RDW 20.0 H Plt Count 497 H Lymph % (Auto) [place] % (Auto) [place] # Baso # Seg Neutrophils % Seg Neuts % (Manual) Lymphocytes % (Manual) Monocytes % (Manual) Seg Neutrophils # Seg Neutrophils # Man Lymphocytes # (Manual) Monocytes # (Manual) Eosinophils # (Manual) Basophils # (Manual) PT INR APTT ABG pH ABG pO2 ABG HCO3 ABG O2 Saturation ABG Base Excess ABG Hemoglobin Oxyhemoglobin Sodium Potassium Chloride 107.9 H Carbon Dioxide 20 L BUN 27 H Creatinine 0.6 L Glucose 116 H POC Glucose 123 H Lactic Acid Calcium Ionized Calcium Phosphorus Magnesium Total Bilirubin AST ALT Alkaline Phosphatase Ammonia Total Creatine Kinase CK-MB (CK-2) CK-MB (CK-2) Rel Index Total Protein Albumin Urine WBC (Auto) Vancomycin Trough Salicylates Acetaminophen Plasma/Serum Alcohol Crossmatch 12/18/19 12/18/19 12/18/19 06:38 11:22 12:08 WBC RBC Hgb Hct MCH RDW Plt Count Lymph % (Auto) [place] % (Auto) [place] # Baso # Seg Neutrophils % Seg Neuts % (Manual) Lymphocytes % (Manual) Monocytes % (Manual) Seg Neutrophils # Seg Neutrophils # Man Lymphocytes # (Manual) Monocytes # (Manual) Eosinophils # (Manual) Basophils # (Manual) PT INR APTT ABG pH ABG pO2 ABG HCO3 ABG O2 Saturation ABG Base Excess ABG Hemoglobin Oxyhemoglobin Sodium Potassium Chloride Carbon Dioxide BUN Creatinine Glucose POC Glucose 120 H 127 H Lactic Acid Calcium Ionized Calcium Phosphorus Magnesium Total Bilirubin AST ALT Alkaline Phosphatase Ammonia Total Creatine Kinase CK-MB (CK-2) CK-MB (CK-2) Rel Index Total Protein Albumin Urine WBC (Auto) Vancomycin Trough Salicylates Acetaminophen Plasma/Serum Alcohol Crossmatch See Detail 12/18/19 12/18/19 12/18/19 14:05 17:49 23:53 WBC RBC Hgb Hct MCH RDW Plt Count Lymph % (Auto) [place] % (Auto) [place] # Baso # Seg Neutrophils % Seg Neuts % (Manual) Lymphocytes % (Manual) Monocytes % (Manual) Seg Neutrophils # Seg Neutrophils # Man Lymphocytes # (Manual) Monocytes # (Manual) Eosinophils # (Manual) Basophils # (Manual) PT INR APTT ABG pH 7.267 L ABG pO2 69.8 L ABG HCO3 ABG O2 Saturation 88.4 L ABG Base Excess ABG Hemoglobin 7.1 L Oxyhemoglobin 86.4 L Sodium Potassium Chloride Carbon Dioxide BUN Creatinine Glucose POC Glucose 157 H 128 H Lactic Acid Calcium Ionized Calcium Phosphorus Magnesium Total Bilirubin AST ALT Alkaline Phosphatase Ammonia Total Creatine Kinase CK-MB (CK-2) CK-MB (CK-2) Rel Index Total Protein Albumin Urine WBC (Auto) Vancomycin Trough Salicylates Acetaminophen Plasma/Serum Alcohol Crossmatch 12/19/19 12/19/19 12/19/19 03:37 03:37 05:25 WBC 31.3 H RBC 2.60 L Hgb 7.6 L Hct 23.0 L MCH RDW 19.4 H Plt Count 530 H Lymph % (Auto) [place] % (Auto) [place] # Baso # Seg Neutrophils % Seg Neuts % (Manual) Lymphocytes % (Manual) Monocytes % (Manual) Seg Neutrophils # Seg Neutrophils # Man Lymphocytes # (Manual) Monocytes # (Manual) Eosinophils # (Manual) Basophils # (Manual) PT INR APTT ABG pH ABG pO2 ABG HCO3 ABG O2 Saturation ABG Base Excess ABG Hemoglobin Oxyhemoglobin Sodium Potassium Chloride Carbon Dioxide 18 L BUN 36 H Creatinine Glucose 111 H POC Glucose 123 H Lactic Acid Calcium Ionized Calcium Phosphorus Magnesium Total Bilirubin AST ALT Alkaline Phosphatase Ammonia Total Creatine Kinase CK-MB (CK-2) CK-MB (CK-2) Rel Index Total Protein Albumin Urine WBC (Auto) Vancomycin Trough Salicylates Acetaminophen Plasma/Serum Alcohol Crossmatch 12/19/19 12/19/19 12/20/19 12:59 18:33 00:00 WBC RBC Hgb Hct MCH RDW Plt Count Lymph % (Auto) [place] % (Auto) [place] # Baso # Seg Neutrophils % Seg Neuts % (Manual) Lymphocytes % (Manual) Monocytes % (Manual) Seg Neutrophils # Seg Neutrophils # Man Lymphocytes # (Manual) Monocytes # (Manual) Eosinophils # (Manual) Basophils # (Manual) PT INR APTT ABG pH ABG pO2 ABG HCO3 ABG O2 Saturation ABG Base Excess ABG Hemoglobin Oxyhemoglobin Sodium Potassium Chloride Carbon Dioxide BUN Creatinine Glucose POC Glucose 130 H 118 H 135 H Lactic Acid Calcium Ionized Calcium Phosphorus Magnesium Total Bilirubin AST ALT Alkaline Phosphatase Ammonia Total Creatine Kinase CK-MB (CK-2) CK-MB (CK-2) Rel Index Total Protein Albumin Urine WBC (Auto) Vancomycin Trough Salicylates Acetaminophen Plasma/Serum Alcohol Crossmatch 12/20/19 12/20/19 12/20/19 05:46 12:31 18:07 WBC RBC Hgb Hct MCH RDW Plt Count Lymph % (Auto) [place] % (Auto) [place] # Baso # Seg Neutrophils % Seg Neuts % (Manual) Lymphocytes % (Manual) Monocytes % (Manual) Seg Neutrophils # Seg Neutrophils # Man Lymphocytes # (Manual) Monocytes # (Manual) Eosinophils # (Manual) Basophils # (Manual) PT INR APTT ABG pH ABG pO2 ABG HCO3 ABG O2 Saturation ABG Base Excess ABG Hemoglobin Oxyhemoglobin Sodium Potassium Chloride Carbon Dioxide BUN Creatinine Glucose POC Glucose 131 H 128 H 134 H Lactic Acid Calcium Ionized Calcium Phosphorus Magnesium Total Bilirubin AST ALT Alkaline Phosphatase Ammonia Total Creatine Kinase CK-MB (CK-2) CK-MB (CK-2) Rel Index Total Protein Albumin Urine WBC (Auto) Vancomycin Trough Salicylates Acetaminophen Plasma/Serum Alcohol Crossmatch 12/21/19 12/21/19 12/21/19 03:28 03:28 07:21 WBC 29.4 H RBC 2.30 L Hgb 6.8 L Hct 20.2 L MCH RDW 20.2 H Plt Count 746 H Lymph % (Auto) [place] % (Auto) [place] # Baso # Seg Neutrophils % Seg Neuts % (Manual) 85.0 H Lymphocytes % (Manual) 8.0 L Monocytes % (Manual) Seg Neutrophils # Seg Neutrophils # Man 25.0 H Lymphocytes # (Manual) Monocytes # (Manual) 1.5 H Eosinophils # (Manual) 0.6 H Basophils # (Manual) PT INR APTT ABG pH ABG pO2 ABG HCO3 ABG O2 Saturation ABG Base Excess ABG Hemoglobin Oxyhemoglobin Sodium Potassium Chloride Carbon Dioxide 17 L BUN 57 H Creatinine 1.4 H D Glucose POC Glucose 124 H Lactic Acid Calcium Ionized Calcium Phosphorus Magnesium Total Bilirubin AST ALT Alkaline Phosphatase Ammonia Total Creatine Kinase CK-MB (CK-2) CK-MB (CK-2) Rel Index Total Protein Albumin Urine WBC (Auto) Vancomycin Trough Salicylates Acetaminophen Plasma/Serum Alcohol Crossmatch 12/21/19 12/21/19 12/21/19 08:56 12:06 14:53 WBC RBC Hgb 7.2 L Hct 22.9 L MCH RDW Plt Count Lymph % (Auto) [place] % (Auto) [place] # Baso # Seg Neutrophils % Seg Neuts % (Manual) Lymphocytes % (Manual) Monocytes % (Manual) Seg Neutrophils # Seg Neutrophils # Man Lymphocytes # (Manual) Monocytes # (Manual) Eosinophils # (Manual) Basophils # (Manual) PT INR APTT ABG pH ABG pO2 ABG HCO3 ABG O2 Saturation ABG Base Excess ABG Hemoglobin Oxyhemoglobin Sodium Potassium Chloride Carbon Dioxide BUN Creatinine Glucose POC Glucose 116 H Lactic Acid Calcium Ionized Calcium Phosphorus Magnesium Total Bilirubin AST ALT Alkaline Phosphatase Ammonia Total Creatine Kinase CK-MB (CK-2) CK-MB (CK-2) Rel Index Total Protein Albumin Urine WBC (Auto) Vancomycin Trough 33.8 H Salicylates Acetaminophen Plasma/Serum Alcohol Crossmatch 12/21/19 12/21/19 12/21/19 14:54 17:27 23:49 WBC RBC Hgb Hct MCH RDW Plt Count Lymph % (Auto) [place] % (Auto) [place] # Baso # Seg Neutrophils % Seg Neuts % (Manual) Lymphocytes % (Manual) Monocytes % (Manual) Seg Neutrophils # Seg Neutrophils # Man Lymphocytes # (Manual) Monocytes # (Manual) Eosinophils # (Manual) Basophils # (Manual) PT INR APTT ABG pH ABG pO2 ABG HCO3 ABG O2 Saturation ABG Base Excess ABG Hemoglobin Oxyhemoglobin Sodium Potassium Chloride Carbon Dioxide BUN Creatinine Glucose POC Glucose 145 H 127 H Lactic Acid Calcium Ionized Calcium Phosphorus Magnesium Total Bilirubin AST ALT Alkaline Phosphatase Ammonia Total Creatine Kinase CK-MB (CK-2) CK-MB (CK-2) Rel Index Total Protein Albumin Urine WBC (Auto) Vancomycin Trough Salicylates Acetaminophen Plasma/Serum Alcohol Crossmatch See Detail 12/22/19 12/22/19 12/22/19 04:43 05:56 08:40 WBC RBC Hgb Hct MCH RDW Plt Count Lymph % (Auto) [place] % (Auto) [place] # Baso # Seg Neutrophils % Seg Neuts % (Manual) Lymphocytes % (Manual) Monocytes % (Manual) Seg Neutrophils # Seg Neutrophils # Man Lymphocytes # (Manual) Monocytes # (Manual) Eosinophils # (Manual) Basophils # (Manual) PT INR APTT ABG pH ABG pO2 75.6 L ABG HCO3 ABG O2 Saturation ABG Base Excess -2.6 L ABG Hemoglobin 6.8 L Oxyhemoglobin 94.6 L Sodium Potassium Chloride Carbon Dioxide 17 L BUN 60 H Creatinine 1.4 H Glucose 126 H POC Glucose 153 H Lactic Acid Calcium Ionized Calcium Phosphorus Magnesium Total Bilirubin AST ALT Alkaline Phosphatase Ammonia Total Creatine Kinase CK-MB (CK-2) CK-MB (CK-2) Rel Index Total Protein Albumin Urine WBC (Auto) Vancomycin Trough Salicylates Acetaminophen Plasma/Serum Alcohol Crossmatch 12/22/19 12/22/19 12/23/19 12:07 17:49 04:30 WBC 22.4 H RBC 2.68 L Hgb 7.6 L Hct 22.9 L MCH RDW 19.9 H Plt Count 998 H Lymph % (Auto) [place] % (Auto) [place] # Baso # Seg Neutrophils % Seg Neuts % (Manual) 88.0 H Lymphocytes % (Manual) 2.0 L Monocytes % (Manual) 9.0 H Seg Neutrophils # Seg Neutrophils # Man 19.7 H Lymphocytes # (Manual) 0.4 L Monocytes # (Manual) 2.0 H Eosinophils # (Manual) Basophils # (Manual) PT INR APTT ABG pH ABG pO2 ABG HCO3 ABG O2 Saturation ABG Base Excess ABG Hemoglobin Oxyhemoglobin Sodium Potassium Chloride Carbon Dioxide BUN Creatinine Glucose POC Glucose 140 H 116 H Lactic Acid Calcium Ionized Calcium Phosphorus Magnesium Total Bilirubin AST ALT Alkaline Phosphatase Ammonia Total Creatine Kinase CK-MB (CK-2) CK-MB (CK-2) Rel Index Total Protein Albumin Urine WBC (Auto) Vancomycin Trough Salicylates Acetaminophen Plasma/Serum Alcohol Crossmatch 12/23/19 12/23/19 12/23/19 04:30 12:00 18:06 WBC RBC Hgb Hct MCH RDW Plt Count Lymph % (Auto) [place] % (Auto) [place] # Baso # Seg Neutrophils % Seg Neuts % (Manual) Lymphocytes % (Manual) Monocytes % (Manual) Seg Neutrophils # Seg Neutrophils # Man Lymphocytes # (Manual) Monocytes # (Manual) Eosinophils # (Manual) Basophils # (Manual) PT INR APTT ABG pH ABG pO2 ABG HCO3 ABG O2 Saturation ABG Base Excess ABG Hemoglobin Oxyhemoglobin Sodium Potassium 5.2 H Chloride Carbon Dioxide 21 L BUN 69 H Creatinine 1.5 H Glucose 117 H POC Glucose 128 H 138 H Lactic Acid Calcium Ionized Calcium Phosphorus Magnesium Total Bilirubin AST ALT Alkaline Phosphatase Ammonia Total Creatine Kinase CK-MB (CK-2) CK-MB (CK-2) Rel Index Total Protein Albumin Urine WBC (Auto) Vancomycin Trough Salicylates Acetaminophen Plasma/Serum Alcohol Crossmatch 12/23/19 12/24/19 12/24/19 23:46 04:31 05:08 WBC RBC Hgb Hct MCH RDW Plt Count Lymph % (Auto) [place] % (Auto) [place] # Baso # Seg Neutrophils % Seg Neuts % (Manual) Lymphocytes % (Manual) Monocytes % (Manual) Seg Neutrophils # Seg Neutrophils # Man Lymphocytes # (Manual) Monocytes # (Manual) Eosinophils # (Manual) Basophils # (Manual) PT INR APTT ABG pH ABG pO2 ABG HCO3 ABG O2 Saturation ABG Base Excess ABG Hemoglobin Oxyhemoglobin Sodium Potassium 5.3 H Chloride 107.6 H Carbon Dioxide 20 L BUN 72 H Creatinine 1.6 H Glucose 120 H POC Glucose 120 H 140 H Lactic Acid Calcium Ionized Calcium Phosphorus Magnesium Total Bilirubin AST ALT Alkaline Phosphatase Ammonia Total Creatine Kinase CK-MB (CK-2) CK-MB (CK-2) Rel Index Total Protein Albumin Urine WBC (Auto) Vancomycin Trough Salicylates Acetaminophen Plasma/Serum Alcohol Crossmatch 12/24/19 12/24/19 12/25/19 11:58 17:49 03:47 WBC 36.2 H RBC 2.92 L Hgb 8.4 L Hct 26.1 L MCH RDW 20.2 H Plt Count 942 H Lymph % (Auto) [place] % (Auto) [place] # Baso # Seg Neutrophils % Seg Neuts % (Manual) 97.5 H Lymphocytes % (Manual) 1.0 L Monocytes % (Manual) Seg Neutrophils # Seg Neutrophils # Man 35.3 H Lymphocytes # (Manual) 0.4 L Monocytes # (Manual) Eosinophils # (Manual) Basophils # (Manual) PT INR APTT ABG pH ABG pO2 ABG HCO3 ABG O2 Saturation ABG Base Excess ABG Hemoglobin Oxyhemoglobin Sodium Potassium Chloride Carbon Dioxide BUN Creatinine Glucose POC Glucose 146 H 131 H Lactic Acid Calcium Ionized Calcium Phosphorus Magnesium Total Bilirubin AST ALT Alkaline Phosphatase Ammonia Total Creatine Kinase CK-MB (CK-2) CK-MB (CK-2) Rel Index Total Protein Albumin Urine WBC (Auto) Vancomycin Trough Salicylates Acetaminophen Plasma/Serum Alcohol Crossmatch 12/25/19 12/25/19 12/25/19 03:47 05:30 12:23 WBC RBC Hgb Hct MCH RDW Plt Count Lymph % (Auto) [place] % (Auto) [place] # Baso # Seg Neutrophils % Seg Neuts % (Manual) Lymphocytes % (Manual) Monocytes % (Manual) Seg Neutrophils # Seg Neutrophils # Man Lymphocytes # (Manual) Monocytes # (Manual) Eosinophils # (Manual) Basophils # (Manual) PT INR APTT ABG pH ABG pO2 ABG HCO3 ABG O2 Saturation ABG Base Excess ABG Hemoglobin Oxyhemoglobin Sodium Potassium Chloride Carbon Dioxide 15 L BUN 70 H Creatinine 1.7 H Glucose 153 H POC Glucose 169 H 135 H Lactic Acid Calcium Ionized Calcium Phosphorus Magnesium Total Bilirubin AST ALT Alkaline Phosphatase Ammonia Total Creatine Kinase CK-MB (CK-2) CK-MB (CK-2) Rel Index Total Protein Albumin Urine WBC (Auto) Vancomycin Trough Salicylates Acetaminophen Plasma/Serum Alcohol Crossmatch 12/25/19 12/25/19 12/26/19 17:37 23:29 09:47 WBC 22.1 H RBC 2.83 L Hgb 7.9 L Hct 25.5 L MCH RDW 20.0 H Plt Count 894 H Lymph % (Auto) [place] % (Auto) [place] # Baso # Seg Neutrophils % Seg Neuts % (Manual) Lymphocytes % (Manual) Monocytes % (Manual) Seg Neutrophils # Seg Neutrophils # Man Lymphocytes # (Manual) Monocytes # (Manual) Eosinophils # (Manual) Basophils # (Manual) PT INR APTT ABG pH ABG pO2 ABG HCO3 ABG O2 Saturation ABG Base Excess ABG Hemoglobin Oxyhemoglobin Sodium Potassium Chloride Carbon Dioxide BUN Creatinine Glucose POC Glucose 120 H 140 H Lactic Acid Calcium Ionized Calcium Phosphorus Magnesium Total Bilirubin AST ALT Alkaline Phosphatase Ammonia Total Creatine Kinase CK-MB (CK-2) CK-MB (CK-2) Rel Index Total Protein Albumin Urine WBC (Auto) Vancomycin Trough Salicylates Acetaminophen Plasma/Serum Alcohol Crossmatch 12/26/19 12/26/19 12/26/19 09:47 11:46 17:52 WBC RBC Hgb Hct MCH RDW Plt Count Lymph % (Auto) [place] % (Auto) [place] # Baso # Seg Neutrophils % Seg Neuts % (Manual) Lymphocytes % (Manual) Monocytes % (Manual) Seg Neutrophils # Seg Neutrophils # Man Lymphocytes # (Manual) Monocytes # (Manual) Eosinophils # (Manual) Basophils # (Manual) PT INR APTT ABG pH ABG pO2 ABG HCO3 ABG O2 Saturation ABG Base Excess ABG Hemoglobin Oxyhemoglobin Sodium Potassium Chloride Carbon Dioxide 18 L BUN 65 H Creatinine 1.4 H Glucose 132 H POC Glucose 110 H 145 H Lactic Acid Calcium Ionized Calcium Phosphorus Magnesium Total Bilirubin AST ALT Alkaline Phosphatase Ammonia Total Creatine Kinase CK-MB (CK-2) CK-MB (CK-2) Rel Index Total Protein Albumin Urine WBC (Auto) Vancomycin Trough Salicylates Acetaminophen Plasma/Serum Alcohol Crossmatch 12/27/19 12/27/19 12/27/19 00:01 03:42 03:42 WBC 18.0 H RBC 2.86 L Hgb 8.0 L Hct 25.2 L MCH RDW 19.2 H Plt Count 873 H Lymph % (Auto) 8.4 L [place] % (Auto) 7.5 H [place] # 1.4 H Baso # 0.2 H Seg Neutrophils % 82.2 H Seg Neuts % (Manual) Lymphocytes % (Manual) Monocytes % (Manual) Seg Neutrophils # 14.8 H Seg Neutrophils # Man Lymphocytes # (Manual) Monocytes # (Manual) Eosinophils # (Manual) Basophils # (Manual) PT INR APTT ABG pH ABG pO2 ABG HCO3 ABG O2 Saturation ABG Base Excess ABG Hemoglobin Oxyhemoglobin Sodium Potassium Chloride Carbon Dioxide BUN 73 H Creatinine 1.4 H Glucose 119 H POC Glucose 124 H Lactic Acid Calcium Ionized Calcium Phosphorus Magnesium Total Bilirubin AST ALT Alkaline Phosphatase Ammonia Total Creatine Kinase CK-MB (CK-2) CK-MB (CK-2) Rel Index Total Protein Albumin Urine WBC (Auto) Vancomycin Trough Salicylates Acetaminophen Plasma/Serum Alcohol Crossmatch 12/27/19 12/27/19 12/27/19 05:45 11:45 17:29 WBC RBC Hgb Hct MCH RDW Plt Count Lymph % (Auto) [place] % (Auto) [place] # Baso # Seg Neutrophils % Seg Neuts % (Manual) Lymphocytes % (Manual) Monocytes % (Manual) Seg Neutrophils # Seg Neutrophils # Man Lymphocytes # (Manual) Monocytes # (Manual) Eosinophils # (Manual) Basophils # (Manual) PT INR APTT ABG pH ABG pO2 ABG HCO3 ABG O2 Saturation ABG Base Excess ABG Hemoglobin Oxyhemoglobin Sodium Potassium Chloride Carbon Dioxide BUN Creatinine Glucose POC Glucose 131 H 123 H 134 H Lactic Acid Calcium Ionized Calcium Phosphorus Magnesium Total Bilirubin AST ALT Alkaline Phosphatase Ammonia Total Creatine Kinase CK-MB (CK-2) CK-MB (CK-2) Rel Index Total Protein Albumin Urine WBC (Auto) Vancomycin Trough Salicylates Acetaminophen Plasma/Serum Alcohol Crossmatch 12/28/19 12/28/19 12/28/19 00:12 05:14 11:53 WBC RBC Hgb Hct MCH RDW Plt Count Lymph % (Auto) [place] % (Auto) [place] # Baso # Seg Neutrophils % Seg Neuts % (Manual) Lymphocytes % (Manual) Monocytes % (Manual) Seg Neutrophils # Seg Neutrophils # Man Lymphocytes # (Manual) Monocytes # (Manual) Eosinophils # (Manual) Basophils # (Manual) PT INR APTT ABG pH ABG pO2 ABG HCO3 ABG O2 Saturation ABG Base Excess ABG Hemoglobin Oxyhemoglobin Sodium Potassium Chloride Carbon Dioxide BUN Creatinine Glucose POC Glucose 138 H 130 H 146 H Lactic Acid Calcium Ionized Calcium Phosphorus Magnesium Total Bilirubin AST ALT Alkaline Phosphatase Ammonia Total Creatine Kinase CK-MB (CK-2) CK-MB (CK-2) Rel Index Total Protein Albumin Urine WBC (Auto) Vancomycin Trough Salicylates Acetaminophen Plasma/Serum Alcohol Crossmatch 12/28/19 12/29/19 12/29/19 17:39 00:01 18:11 WBC RBC Hgb Hct MCH RDW Plt Count Lymph % (Auto) [place] % (Auto) [place] # Baso # Seg Neutrophils % Seg Neuts % (Manual) Lymphocytes % (Manual) Monocytes % (Manual) Seg Neutrophils # Seg Neutrophils # Man Lymphocytes # (Manual) Monocytes # (Manual) Eosinophils # (Manual) Basophils # (Manual) PT INR APTT ABG pH ABG pO2 ABG HCO3 ABG O2 Saturation ABG Base Excess ABG Hemoglobin Oxyhemoglobin Sodium Potassium Chloride Carbon Dioxide BUN Creatinine Glucose POC Glucose 117 H 139 H 130 H Lactic Acid Calcium Ionized Calcium Phosphorus Magnesium Total Bilirubin AST ALT Alkaline Phosphatase Ammonia Total Creatine Kinase CK-MB (CK-2) CK-MB (CK-2) Rel Index Total Protein Albumin Urine WBC (Auto) Vancomycin Trough Salicylates Acetaminophen Plasma/Serum Alcohol Crossmatch 12/29/19 12/30/19 12/30/19 23:09 00:02 01:06 WBC 16.7 H RBC 2.91 L Hgb 8.2 L Hct 25.4 L MCH RDW 18.7 H Plt Count 708 H Lymph % (Auto) 9.4 L [place] % (Auto) [place] # 0.9 H Baso # Seg Neutrophils % 83.5 H Seg Neuts % (Manual) Lymphocytes % (Manual) Monocytes % (Manual) Seg Neutrophils # 14.0 H Seg Neutrophils # Man Lymphocytes # (Manual) Monocytes # (Manual) Eosinophils # (Manual) Basophils # (Manual) PT INR APTT ABG pH ABG pO2 ABG HCO3 ABG O2 Saturation ABG Base Excess ABG Hemoglobin Oxyhemoglobin Sodium Potassium Chloride Carbon Dioxide BUN Creatinine Glucose POC Glucose 120 H 114 H Lactic Acid Calcium Ionized Calcium Phosphorus Magnesium Total Bilirubin AST ALT Alkaline Phosphatase Ammonia Total Creatine Kinase CK-MB (CK-2) CK-MB (CK-2) Rel Index Total Protein Albumin Urine WBC (Auto) Vancomycin Trough Salicylates Acetaminophen Plasma/Serum Alcohol Crossmatch 12/30/19 12/30/19 12/30/19 01:06 04:23 05:18 WBC RBC Hgb Hct MCH RDW Plt Count Lymph % (Auto) [place] % (Auto) [place] # Baso # Seg Neutrophils % Seg Neuts % (Manual) Lymphocytes % (Manual) Monocytes % (Manual) Seg Neutrophils # Seg Neutrophils # Man Lymphocytes # (Manual) Monocytes # (Manual) Eosinophils # (Manual) Basophils # (Manual) PT INR APTT ABG pH ABG pO2 ABG HCO3 ABG O2 Saturation ABG Base Excess ABG Hemoglobin 8.3 L Oxyhemoglobin Sodium Potassium Chloride Carbon Dioxide BUN 70 H Creatinine Glucose 122 H POC Glucose 130 H Lactic Acid Calcium Ionized Calcium Phosphorus Magnesium Total Bilirubin AST ALT Alkaline Phosphatase Ammonia Total Creatine Kinase CK-MB (CK-2) CK-MB (CK-2) Rel Index Total Protein Albumin Urine WBC (Auto) Vancomycin Trough Salicylates Acetaminophen Plasma/Serum Alcohol Crossmatch 12/30/19 12/30/19 12/30/19 05:40 12:17 17:43 WBC RBC Hgb Hct MCH RDW Plt Count Lymph % (Auto) [place] % (Auto) [place] # Baso # Seg Neutrophils % Seg Neuts % (Manual) Lymphocytes % (Manual) Monocytes % (Manual) Seg Neutrophils # Seg Neutrophils # Man Lymphocytes # (Manual) Monocytes # (Manual) Eosinophils # (Manual) Basophils # (Manual) PT INR APTT ABG pH ABG pO2 ABG HCO3 ABG O2 Saturation ABG Base Excess ABG Hemoglobin Oxyhemoglobin Sodium Potassium Chloride Carbon Dioxide BUN Creatinine Glucose POC Glucose 135 H 132 H 118 H Lactic Acid Calcium Ionized Calcium Phosphorus Magnesium Total Bilirubin AST ALT Alkaline Phosphatase Ammonia Total Creatine Kinase CK-MB (CK-2) CK-MB (CK-2) Rel Index Total Protein Albumin Urine WBC (Auto) Vancomycin Trough Salicylates Acetaminophen Plasma/Serum Alcohol Crossmatch 12/30/19 12/31/19 12/31/19 23:29 05:19 17:50 WBC RBC Hgb Hct MCH RDW Plt Count Lymph % (Auto) [place] % (Auto) [place] # Baso # Seg Neutrophils % Seg Neuts % (Manual) Lymphocytes % (Manual) Monocytes % (Manual) Seg Neutrophils # Seg Neutrophils # Man Lymphocytes # (Manual) Monocytes # (Manual) Eosinophils # (Manual) Basophils # (Manual) PT INR APTT ABG pH ABG pO2 ABG HCO3 ABG O2 Saturation ABG Base Excess ABG Hemoglobin Oxyhemoglobin Sodium Potassium Chloride Carbon Dioxide BUN Creatinine Glucose POC Glucose 114 H 109 H 116 H Lactic Acid Calcium Ionized Calcium Phosphorus Magnesium Total Bilirubin AST ALT Alkaline Phosphatase Ammonia Total Creatine Kinase CK-MB (CK-2) CK-MB (CK-2) Rel Index Total Protein Albumin Urine WBC (Auto) Vancomycin Trough Salicylates Acetaminophen Plasma/Serum Alcohol Crossmatch 01/01/20 01/01/20 01/01/20 00:10 05:19 12:02 WBC RBC Hgb Hct MCH RDW Plt Count Lymph % (Auto) [place] % (Auto) [place] # Baso # Seg Neutrophils % Seg Neuts % (Manual) Lymphocytes % (Manual) Monocytes % (Manual) Seg Neutrophils # Seg Neutrophils # Man Lymphocytes # (Manual) Monocytes # (Manual) Eosinophils # (Manual) Basophils # (Manual) PT INR APTT ABG pH ABG pO2 ABG HCO3 ABG O2 Saturation ABG Base Excess ABG Hemoglobin Oxyhemoglobin Sodium Potassium Chloride Carbon Dioxide BUN Creatinine Glucose POC Glucose 131 H 122 H 136 H Lactic Acid Calcium Ionized Calcium Phosphorus Magnesium Total Bilirubin AST ALT Alkaline Phosphatase Ammonia Total Creatine Kinase CK-MB (CK-2) CK-MB (CK-2) Rel Index Total Protein Albumin Urine WBC (Auto) Vancomycin Trough Salicylates Acetaminophen Plasma/Serum Alcohol Crossmatch 01/02/20 01/02/20 01/02/20 00:24 05:36 11:41 WBC RBC Hgb Hct MCH RDW Plt Count Lymph % (Auto) [place] % (Auto) [place] # Baso # Seg Neutrophils % Seg Neuts % (Manual) Lymphocytes % (Manual) Monocytes % (Manual) Seg Neutrophils # Seg Neutrophils # Man Lymphocytes # (Manual) Monocytes # (Manual) Eosinophils # (Manual) Basophils # (Manual) PT INR APTT ABG pH ABG pO2 ABG HCO3 ABG O2 Saturation ABG Base Excess ABG Hemoglobin Oxyhemoglobin Sodium Potassium Chloride Carbon Dioxide BUN Creatinine Glucose POC Glucose 119 H 109 H 125 H Lactic Acid Calcium Ionized Calcium Phosphorus Magnesium Total Bilirubin AST ALT Alkaline Phosphatase Ammonia Total Creatine Kinase CK-MB (CK-2) CK-MB (CK-2) Rel Index Total Protein Albumin Urine WBC (Auto) Vancomycin Trough Salicylates Acetaminophen Plasma/Serum Alcohol Crossmatch 01/02/20 01/03/20 01/03/20 17:49 05:29 12:13 WBC RBC Hgb Hct MCH RDW Plt Count Lymph % (Auto) [place] % (Auto) [place] # Baso # Seg Neutrophils % Seg Neuts % (Manual) Lymphocytes % (Manual) Monocytes % (Manual) Seg Neutrophils # Seg Neutrophils # Man Lymphocytes # (Manual) Monocytes # (Manual) Eosinophils # (Manual) Basophils # (Manual) PT INR APTT ABG pH ABG pO2 ABG HCO3 ABG O2 Saturation ABG Base Excess ABG Hemoglobin Oxyhemoglobin Sodium Potassium Chloride Carbon Dioxide BUN Creatinine Glucose POC Glucose 130 H 132 H 113 H Lactic Acid Calcium Ionized Calcium Phosphorus Magnesium Total Bilirubin AST ALT Alkaline Phosphatase Ammonia Total Creatine Kinase CK-MB (CK-2) CK-MB (CK-2) Rel Index Total Protein Albumin Urine WBC (Auto) Vancomycin Trough Salicylates Acetaminophen Plasma/Serum Alcohol Crossmatch 01/03/20 01/04/20 01/04/20 17:32 00:19 05:26 WBC RBC Hgb Hct MCH RDW Plt Count Lymph % (Auto) [place] % (Auto) [place] # Baso # Seg Neutrophils % Seg Neuts % (Manual) Lymphocytes % (Manual) Monocytes % (Manual) Seg Neutrophils # Seg Neutrophils # Man Lymphocytes # (Manual) Monocytes # (Manual) Eosinophils # (Manual) Basophils # (Manual) PT INR APTT ABG pH ABG pO2 ABG HCO3 ABG O2 Saturation ABG Base Excess ABG Hemoglobin Oxyhemoglobin Sodium Potassium Chloride Carbon Dioxide BUN Creatinine Glucose POC Glucose 127 H 141 H 129 H Lactic Acid Calcium Ionized Calcium Phosphorus Magnesium Total Bilirubin AST ALT Alkaline Phosphatase Ammonia Total Creatine Kinase CK-MB (CK-2) CK-MB (CK-2) Rel Index Total Protein Albumin Urine WBC (Auto) Vancomycin Trough Salicylates Acetaminophen Plasma/Serum Alcohol Crossmatch 01/04/20 01/04/20 01/05/20 11:39 17:29 05:22 WBC RBC Hgb Hct MCH RDW Plt Count Lymph % (Auto) [place] % (Auto) [place] # Baso # Seg Neutrophils % Seg Neuts % (Manual) Lymphocytes % (Manual) Monocytes % (Manual) Seg Neutrophils # Seg Neutrophils # Man Lymphocytes # (Manual) Monocytes # (Manual) Eosinophils # (Manual) Basophils # (Manual) PT INR APTT ABG pH ABG pO2 ABG HCO3 ABG O2 Saturation ABG Base Excess ABG Hemoglobin Oxyhemoglobin Sodium Potassium Chloride Carbon Dioxide BUN Creatinine Glucose POC Glucose 167 H 132 H 121 H Lactic Acid Calcium Ionized Calcium Phosphorus Magnesium Total Bilirubin AST ALT Alkaline Phosphatase Ammonia Total Creatine Kinase CK-MB (CK-2) CK-MB (CK-2) Rel Index Total Protein Albumin Urine WBC (Auto) Vancomycin Trough Salicylates Acetaminophen Plasma/Serum Alcohol Crossmatch 01/05/20 01/05/20 01/05/20 12:25 17:40 18:06 WBC RBC Hgb Hct MCH RDW Plt Count Lymph % (Auto) [place] % (Auto) [place] # Baso # Seg Neutrophils % Seg Neuts % (Manual) Lymphocytes % (Manual) Monocytes % (Manual) Seg Neutrophils # Seg Neutrophils # Man Lymphocytes # (Manual) Monocytes # (Manual) Eosinophils # (Manual) Basophils # (Manual) PT INR APTT ABG pH 7.472 H ABG pO2 99.2 H ABG HCO3 ABG O2 Saturation ABG Base Excess ABG Hemoglobin 7.8 L Oxyhemoglobin Sodium Potassium Chloride Carbon Dioxide BUN Creatinine Glucose POC Glucose 106 H 110 H Lactic Acid Calcium Ionized Calcium Phosphorus Magnesium Total Bilirubin AST ALT Alkaline Phosphatase Ammonia Total Creatine Kinase CK-MB (CK-2) CK-MB (CK-2) Rel Index Total Protein Albumin Urine WBC (Auto) Vancomycin Trough Salicylates Acetaminophen Plasma/Serum Alcohol Crossmatch 01/06/20 01/06/20 01/06/20 00:11 05:16 11:30 WBC RBC Hgb Hct MCH RDW Plt Count Lymph % (Auto) [place] % (Auto) [place] # Baso # Seg Neutrophils % Seg Neuts % (Manual) Lymphocytes % (Manual) Monocytes % (Manual) Seg Neutrophils # Seg Neutrophils # Man Lymphocytes # (Manual) Monocytes # (Manual) Eosinophils # (Manual) Basophils # (Manual) PT INR APTT ABG pH ABG pO2 ABG HCO3 ABG O2 Saturation ABG Base Excess ABG Hemoglobin Oxyhemoglobin Sodium Potassium Chloride Carbon Dioxide BUN Creatinine Glucose POC Glucose 108 H 124 H 125 H Lactic Acid Calcium Ionized Calcium Phosphorus Magnesium Total Bilirubin AST ALT Alkaline Phosphatase Ammonia Total Creatine Kinase CK-MB (CK-2) CK-MB (CK-2) Rel Index Total Protein Albumin Urine WBC (Auto) Vancomycin Trough Salicylates Acetaminophen Plasma/Serum Alcohol Crossmatch 01/06/20 01/06/20 01/07/20 17:53 23:51 04:12 WBC 16.5 H RBC 3.29 L Hgb 9.3 L Hct 28.1 L MCH RDW 18.2 H Plt Count 526 H Lymph % (Auto) 8.4 L [place] % (Auto) [place] # 1.0 H Baso # Seg Neutrophils % 84.4 H Seg Neuts % (Manual) Lymphocytes % (Manual) Monocytes % (Manual) Seg Neutrophils # 13.9 H Seg Neutrophils # Man Lymphocytes # (Manual) Monocytes # (Manual) Eosinophils # (Manual) Basophils # (Manual) PT INR APTT ABG pH ABG pO2 ABG HCO3 ABG O2 Saturation ABG Base Excess ABG Hemoglobin Oxyhemoglobin Sodium Potassium Chloride Carbon Dioxide BUN Creatinine Glucose POC Glucose 166 H 128 H Lactic Acid Calcium Ionized Calcium Phosphorus Magnesium Total Bilirubin AST ALT Alkaline Phosphatase Ammonia Total Creatine Kinase CK-MB (CK-2) CK-MB (CK-2) Rel Index Total Protein Albumin Urine WBC (Auto) Vancomycin Trough Salicylates Acetaminophen Plasma/Serum Alcohol Crossmatch 01/07/20 01/07/20 01/07/20 04:12 04:45 11:51 WBC RBC Hgb Hct MCH RDW Plt Count Lymph % (Auto) [place] % (Auto) [place] # Baso # Seg Neutrophils % Seg Neuts % (Manual) Lymphocytes % (Manual) Monocytes % (Manual) Seg Neutrophils # Seg Neutrophils # Man Lymphocytes # (Manual) Monocytes # (Manual) Eosinophils # (Manual) Basophils # (Manual) PT INR APTT ABG pH ABG pO2 ABG HCO3 ABG O2 Saturation ABG Base Excess ABG Hemoglobin Oxyhemoglobin Sodium 136 L Potassium Chloride Carbon Dioxide 21 L BUN 44 H Creatinine 0.6 L Glucose 124 H POC Glucose 134 H 138 H Lactic Acid Calcium Ionized Calcium Phosphorus Magnesium Total Bilirubin AST ALT Alkaline Phosphatase Ammonia Total Creatine Kinase CK-MB (CK-2) CK-MB (CK-2) Rel Index Total Protein Albumin Urine WBC (Auto) Vancomycin Trough Salicylates Acetaminophen Plasma/Serum Alcohol Crossmatch 01/07/20 01/08/20 01/08/20 17:36 00:33 05:29 WBC RBC Hgb Hct MCH RDW Plt Count Lymph % (Auto) [place] % (Auto) [place] # Baso # Seg Neutrophils % Seg Neuts % (Manual) Lymphocytes % (Manual) Monocytes % (Manual) Seg Neutrophils # Seg Neutrophils # Man Lymphocytes # (Manual) Monocytes # (Manual) Eosinophils # (Manual) Basophils # (Manual) PT INR APTT ABG pH ABG pO2 ABG HCO3 ABG O2 Saturation ABG Base Excess ABG Hemoglobin Oxyhemoglobin Sodium Potassium Chloride Carbon Dioxide BUN Creatinine Glucose POC Glucose 128 H 119 H 124 H Lactic Acid Calcium Ionized Calcium Phosphorus Magnesium Total Bilirubin AST ALT Alkaline Phosphatase Ammonia Total Creatine Kinase CK-MB (CK-2) CK-MB (CK-2) Rel Index Total Protein Albumin Urine WBC (Auto) Vancomycin Trough Salicylates Acetaminophen Plasma/Serum Alcohol Crossmatch 01/08/20 01/08/20 01/08/20 12:51 20:25 23:22 WBC RBC Hgb Hct MCH RDW Plt Count Lymph % (Auto) [place] % (Auto) [place] # Baso # Seg Neutrophils % Seg Neuts % (Manual) Lymphocytes % (Manual) Monocytes % (Manual) Seg Neutrophils # Seg Neutrophils # Man Lymphocytes # (Manual) Monocytes # (Manual) Eosinophils # (Manual) Basophils # (Manual) PT INR APTT ABG pH ABG pO2 132.2 H ABG HCO3 ABG O2 Saturation ABG Base Excess ABG Hemoglobin Oxyhemoglobin Sodium Potassium Chloride Carbon Dioxide BUN Creatinine Glucose POC Glucose 128 H 127 H Lactic Acid Calcium Ionized Calcium Phosphorus Magnesium Total Bilirubin AST ALT Alkaline Phosphatase Ammonia Total Creatine Kinase CK-MB (CK-2) CK-MB (CK-2) Rel Index Total Protein Albumin Urine WBC (Auto) Vancomycin Trough Salicylates Acetaminophen Plasma/Serum Alcohol Crossmatch 01/09/20 01/09/20 01/09/20 05:48 08:51 11:29 WBC RBC Hgb Hct MCH RDW Plt Count Lymph % (Auto) [place] % (Auto) [place] # Baso # Seg Neutrophils % Seg Neuts % (Manual) Lymphocytes % (Manual) Monocytes % (Manual) Seg Neutrophils # Seg Neutrophils # Man Lymphocytes # (Manual) Monocytes # (Manual) Eosinophils # (Manual) Basophils # (Manual) PT INR APTT ABG pH ABG pO2 94.3 H ABG HCO3 ABG O2 Saturation ABG Base Excess ABG Hemoglobin 9.5 L Oxyhemoglobin Sodium Potassium Chloride Carbon Dioxide BUN Creatinine Glucose POC Glucose 120 H 112 H Lactic Acid Calcium Ionized Calcium Phosphorus Magnesium Total Bilirubin AST ALT Alkaline Phosphatase Ammonia Total Creatine Kinase CK-MB (CK-2) CK-MB (CK-2) Rel Index Total Protein Albumin Urine WBC (Auto) Vancomycin Trough Salicylates Acetaminophen Plasma/Serum Alcohol Crossmatch 01/09/20 01/10/20 01/10/20 17:57 05:17 12:28 WBC RBC Hgb Hct MCH RDW Plt Count Lymph % (Auto) [place] % (Auto) [place] # Baso # Seg Neutrophils % Seg Neuts % (Manual) Lymphocytes % (Manual) Monocytes % (Manual) Seg Neutrophils # Seg Neutrophils # Man Lymphocytes # (Manual) Monocytes # (Manual) Eosinophils # (Manual) Basophils # (Manual) PT INR APTT ABG pH ABG pO2 ABG HCO3 ABG O2 Saturation ABG Base Excess ABG Hemoglobin Oxyhemoglobin Sodium Potassium Chloride Carbon Dioxide BUN Creatinine Glucose POC Glucose 122 H 115 H 116 H Lactic Acid Calcium Ionized Calcium Phosphorus Magnesium Total Bilirubin AST ALT Alkaline Phosphatase Ammonia Total Creatine Kinase CK-MB (CK-2) CK-MB (CK-2) Rel Index Total Protein Albumin Urine WBC (Auto) Vancomycin Trough Salicylates Acetaminophen Plasma/Serum Alcohol Crossmatch 01/10/20 01/10/20 01/11/20 18:25 23:47 06:05 WBC RBC Hgb Hct MCH RDW Plt Count Lymph % (Auto) [place] % (Auto) [place] # Baso # Seg Neutrophils % Seg Neuts % (Manual) Lymphocytes % (Manual) Monocytes % (Manual) Seg Neutrophils # Seg Neutrophils # Man Lymphocytes # (Manual) Monocytes # (Manual) Eosinophils # (Manual) Basophils # (Manual) PT INR APTT ABG pH ABG pO2 ABG HCO3 ABG O2 Saturation ABG Base Excess ABG Hemoglobin Oxyhemoglobin Sodium Potassium Chloride Carbon Dioxide BUN Creatinine Glucose POC Glucose 123 H 115 H 151 H Lactic Acid Calcium Ionized Calcium Phosphorus Magnesium Total Bilirubin AST ALT Alkaline Phosphatase Ammonia Total Creatine Kinase CK-MB (CK-2) CK-MB (CK-2) Rel Index Total Protein Albumin Urine WBC (Auto) Vancomycin Trough Salicylates Acetaminophen Plasma/Serum Alcohol Crossmatch 01/11/20 01/11/20 01/11/20 07:00 07:00 12:27 WBC 11.8 H RBC 3.40 L Hgb 9.4 L Hct 29.3 L MCH RDW 18.1 H Plt Count 549 H Lymph % (Auto) [place] % (Auto) 9.1 H [place] # 1.1 H Baso # Seg Neutrophils % 73.3 H Seg Neuts % (Manual) Lymphocytes % (Manual) Monocytes % (Manual) Seg Neutrophils # 8.7 H Seg Neutrophils # Man Lymphocytes # (Manual) Monocytes # (Manual) Eosinophils # (Manual) Basophils # (Manual) PT INR APTT ABG pH ABG pO2 ABG HCO3 ABG O2 Saturation ABG Base Excess ABG Hemoglobin Oxyhemoglobin Sodium 134 L Potassium Chloride 97.7 L Carbon Dioxide 21 L BUN 38 H Creatinine 0.5 L Glucose 168 H POC Glucose 117 H Lactic Acid Calcium 10.5 H Ionized Calcium Phosphorus Magnesium Total Bilirubin AST ALT Alkaline Phosphatase Ammonia Total Creatine Kinase CK-MB (CK-2) CK-MB (CK-2) Rel Index Total Protein Albumin Urine WBC (Auto) Vancomycin Trough Salicylates Acetaminophen Plasma/Serum Alcohol Crossmatch 01/11/20 01/12/20 01/12/20 18:19 00:53 05:24 WBC RBC Hgb Hct MCH RDW Plt Count Lymph % (Auto) [place] % (Auto) [place] # Baso # Seg Neutrophils % Seg Neuts % (Manual) Lymphocytes % (Manual) Monocytes % (Manual) Seg Neutrophils # Seg Neutrophils # Man Lymphocytes # (Manual) Monocytes # (Manual) Eosinophils # (Manual) Basophils # (Manual) PT INR APTT ABG pH ABG pO2 ABG HCO3 ABG O2 Saturation ABG Base Excess ABG Hemoglobin Oxyhemoglobin Sodium Potassium Chloride Carbon Dioxide BUN Creatinine Glucose POC Glucose 126 H 126 H 128 H Lactic Acid Calcium Ionized Calcium Phosphorus Magnesium Total Bilirubin AST ALT Alkaline Phosphatase Ammonia Total Creatine Kinase CK-MB (CK-2) CK-MB (CK-2) Rel Index Total Protein Albumin Urine WBC (Auto) Vancomycin Trough Salicylates Acetaminophen Plasma/Serum Alcohol Crossmatch 01/12/20 01/12/20 01/13/20 13:39 18:02 00:27 WBC RBC Hgb Hct MCH RDW Plt Count Lymph % (Auto) [place] % (Auto) [place] # Baso # Seg Neutrophils % Seg Neuts % (Manual) Lymphocytes % (Manual) Monocytes % (Manual) Seg Neutrophils # Seg Neutrophils # Man Lymphocytes # (Manual) Monocytes # (Manual) Eosinophils # (Manual) Basophils # (Manual) PT INR APTT ABG pH ABG pO2 ABG HCO3 ABG O2 Saturation ABG Base Excess ABG Hemoglobin Oxyhemoglobin Sodium Potassium Chloride Carbon Dioxide BUN Creatinine Glucose POC Glucose 146 H 125 H 131 H Lactic Acid Calcium Ionized Calcium Phosphorus Magnesium Total Bilirubin AST ALT Alkaline Phosphatase Ammonia Total Creatine Kinase CK-MB (CK-2) CK-MB (CK-2) Rel Index Total Protein Albumin Urine WBC (Auto) Vancomycin Trough Salicylates Acetaminophen Plasma/Serum Alcohol Crossmatch 01/13/20 01/13/20 01/13/20 05:44 11:54 17:18 WBC RBC Hgb Hct MCH RDW Plt Count Lymph % (Auto) [place] % (Auto) [place] # Baso # Seg Neutrophils % Seg Neuts % (Manual) Lymphocytes % (Manual) Monocytes % (Manual) Seg Neutrophils # Seg Neutrophils # Man Lymphocytes # (Manual) Monocytes # (Manual) Eosinophils # (Manual) Basophils # (Manual) PT INR APTT ABG pH ABG pO2 ABG HCO3 ABG O2 Saturation ABG Base Excess ABG Hemoglobin Oxyhemoglobin Sodium Potassium Chloride Carbon Dioxide BUN Creatinine Glucose POC Glucose 148 H 140 H 130 H Lactic Acid Calcium Ionized Calcium Phosphorus Magnesium Total Bilirubin AST ALT Alkaline Phosphatase Ammonia Total Creatine Kinase CK-MB (CK-2) CK-MB (CK-2) Rel Index Total Protein Albumin Urine WBC (Auto) Vancomycin Trough Salicylates Acetaminophen Plasma/Serum Alcohol Crossmatch 01/14/20 01/14/20 01/14/20 00:16 05:45 12:19 WBC RBC Hgb Hct MCH RDW Plt Count Lymph % (Auto) [place] % (Auto) [place] # Baso # Seg Neutrophils % Seg Neuts % (Manual) Lymphocytes % (Manual) Monocytes % (Manual) Seg Neutrophils # Seg Neutrophils # Man Lymphocytes # (Manual) Monocytes # (Manual) Eosinophils # (Manual) Basophils # (Manual) PT INR APTT ABG pH ABG pO2 ABG HCO3 ABG O2 Saturation ABG Base Excess ABG Hemoglobin Oxyhemoglobin Sodium Potassium Chloride Carbon Dioxide BUN Creatinine Glucose POC Glucose 125 H 146 H 147 H Lactic Acid Calcium Ionized Calcium Phosphorus Magnesium Total Bilirubin AST ALT Alkaline Phosphatase Ammonia Total Creatine Kinase CK-MB (CK-2) CK-MB (CK-2) Rel Index Total Protein Albumin Urine WBC (Auto) Vancomycin Trough Salicylates Acetaminophen Plasma/Serum Alcohol Crossmatch 01/14/20 01/14/20 01/15/20 18:10 23:54 05:14 WBC RBC Hgb Hct MCH RDW Plt Count Lymph % (Auto) [place] % (Auto) [place] # Baso # Seg Neutrophils % Seg Neuts % (Manual) Lymphocytes % (Manual) Monocytes % (Manual) Seg Neutrophils # Seg Neutrophils # Man Lymphocytes # (Manual) Monocytes # (Manual) Eosinophils # (Manual) Basophils # (Manual) PT INR APTT ABG pH ABG pO2 ABG HCO3 ABG O2 Saturation ABG Base Excess ABG Hemoglobin Oxyhemoglobin Sodium Potassium Chloride Carbon Dioxide BUN Creatinine Glucose POC Glucose 136 H 109 H 111 H Lactic Acid Calcium Ionized Calcium Phosphorus Magnesium Total Bilirubin AST ALT Alkaline Phosphatase Ammonia Total Creatine Kinase CK-MB (CK-2) CK-MB (CK-2) Rel Index Total Protein Albumin Urine WBC (Auto) Vancomycin Trough Salicylates Acetaminophen Plasma/Serum Alcohol Crossmatch 01/15/20 01/15/20 01/16/20 12:34 23:25 05:06 WBC RBC Hgb Hct MCH RDW Plt Count Lymph % (Auto) [place] % (Auto) [place] # Baso # Seg Neutrophils % Seg Neuts % (Manual) Lymphocytes % (Manual) Monocytes % (Manual) Seg Neutrophils # Seg Neutrophils # Man Lymphocytes # (Manual) Monocytes # (Manual) Eosinophils # (Manual) Basophils # (Manual) PT INR APTT ABG pH ABG pO2 ABG HCO3 ABG O2 Saturation ABG Base Excess ABG Hemoglobin Oxyhemoglobin Sodium Potassium Chloride Carbon Dioxide BUN Creatinine Glucose POC Glucose 131 H 120 H 121 H Lactic Acid Calcium Ionized Calcium Phosphorus Magnesium Total Bilirubin AST ALT Alkaline Phosphatase Ammonia Total Creatine Kinase CK-MB (CK-2) CK-MB (CK-2) Rel Index Total Protein Albumin Urine WBC (Auto) Vancomycin Trough Salicylates Acetaminophen Plasma/Serum Alcohol Crossmatch 01/16/20 01/16/20 01/17/20 12:15 23:46 05:32 WBC 13.6 H RBC 3.27 L Hgb 9.3 L Hct 28.5 L MCH RDW 17.0 H Plt Count 490 H Lymph % (Auto) 13.1 L [place] % (Auto) [place] # 1.0 H Baso # Seg Neutrophils % 77.5 H Seg Neuts % (Manual) Lymphocytes % (Manual) Monocytes % (Manual) Seg Neutrophils # 10.5 H Seg Neutrophils # Man Lymphocytes # (Manual) Monocytes # (Manual) Eosinophils # (Manual) Basophils # (Manual) PT INR APTT ABG pH ABG pO2 ABG HCO3 ABG O2 Saturation ABG Base Excess ABG Hemoglobin Oxyhemoglobin Sodium Potassium Chloride Carbon Dioxide BUN Creatinine Glucose POC Glucose 152 H 107 H Lactic Acid Calcium Ionized Calcium Phosphorus Magnesium Total Bilirubin AST ALT Alkaline Phosphatase Ammonia Total Creatine Kinase CK-MB (CK-2) CK-MB (CK-2) Rel Index Total Protein Albumin Urine WBC (Auto) Vancomycin Trough Salicylates Acetaminophen Plasma/Serum Alcohol Crossmatch 01/17/20 01/17/20 01/17/20 06:47 12:16 17:21 WBC RBC Hgb Hct MCH RDW Plt Count Lymph % (Auto) [place] % (Auto) [place] # Baso # Seg Neutrophils % Seg Neuts % (Manual) Lymphocytes % (Manual) Monocytes % (Manual) Seg Neutrophils # Seg Neutrophils # Man Lymphocytes # (Manual) Monocytes # (Manual) Eosinophils # (Manual) Basophils # (Manual) PT INR APTT ABG pH ABG pO2 ABG HCO3 ABG O2 Saturation ABG Base Excess ABG Hemoglobin Oxyhemoglobin Sodium Potassium Chloride Carbon Dioxide BUN Creatinine Glucose POC Glucose 112 H 145 H 150 H Lactic Acid Calcium Ionized Calcium Phosphorus Magnesium Total Bilirubin AST ALT Alkaline Phosphatase Ammonia Total Creatine Kinase CK-MB (CK-2) CK-MB (CK-2) Rel Index Total Protein Albumin Urine WBC (Auto) Vancomycin Trough Salicylates Acetaminophen Plasma/Serum Alcohol Crossmatch 01/17/20 01/18/20 01/18/20 23:34 05:47 12:43 WBC RBC Hgb Hct MCH RDW Plt Count Lymph % (Auto) [place] % (Auto) [place] # Baso # Seg Neutrophils % Seg Neuts % (Manual) Lymphocytes % (Manual) Monocytes % (Manual) Seg Neutrophils # Seg Neutrophils # Man Lymphocytes # (Manual) Monocytes # (Manual) Eosinophils # (Manual) Basophils # (Manual) PT INR APTT ABG pH ABG pO2 ABG HCO3 ABG O2 Saturation ABG Base Excess ABG Hemoglobin Oxyhemoglobin Sodium Potassium Chloride Carbon Dioxide BUN Creatinine Glucose POC Glucose 160 H 130 H 124 H Lactic Acid Calcium Ionized Calcium Phosphorus Magnesium Total Bilirubin AST ALT Alkaline Phosphatase Ammonia Total Creatine Kinase CK-MB (CK-2) CK-MB (CK-2) Rel Index Total Protein Albumin Urine WBC (Auto) Vancomycin Trough Salicylates Acetaminophen Plasma/Serum Alcohol Crossmatch 01/18/20 01/19/20 01/19/20 18:26 00:14 06:24 WBC RBC Hgb Hct MCH RDW Plt Count Lymph % (Auto) [place] % (Auto) [place] # Baso # Seg Neutrophils % Seg Neuts % (Manual) Lymphocytes % (Manual) Monocytes % (Manual) Seg Neutrophils # Seg Neutrophils # Man Lymphocytes # (Manual) Monocytes # (Manual) Eosinophils # (Manual) Basophils # (Manual) PT INR APTT ABG pH ABG pO2 ABG HCO3 ABG O2 Saturation ABG Base Excess ABG Hemoglobin Oxyhemoglobin Sodium Potassium Chloride Carbon Dioxide BUN Creatinine Glucose POC Glucose 119 H 114 H 144 H Lactic Acid Calcium Ionized Calcium Phosphorus Magnesium Total Bilirubin AST ALT Alkaline Phosphatase Ammonia Total Creatine Kinase CK-MB (CK-2) CK-MB (CK-2) Rel Index Total Protein Albumin Urine WBC (Auto) Vancomycin Trough Salicylates Acetaminophen Plasma/Serum Alcohol Crossmatch 01/19/20 01/19/20 01/20/20 12:24 17:50 12:06 WBC RBC Hgb Hct MCH RDW Plt Count Lymph % (Auto) [place] % (Auto) [place] # Baso # Seg Neutrophils % Seg Neuts % (Manual) Lymphocytes % (Manual) Monocytes % (Manual) Seg Neutrophils # Seg Neutrophils # Man Lymphocytes # (Manual) Monocytes # (Manual) Eosinophils # (Manual) Basophils # (Manual) PT INR APTT ABG pH ABG pO2 ABG HCO3 ABG O2 Saturation ABG Base Excess ABG Hemoglobin Oxyhemoglobin Sodium Potassium Chloride Carbon Dioxide BUN Creatinine Glucose POC Glucose 132 H 144 H 135 H Lactic Acid Calcium Ionized Calcium Phosphorus Magnesium Total Bilirubin AST ALT Alkaline Phosphatase Ammonia Total Creatine Kinase CK-MB (CK-2) CK-MB (CK-2) Rel Index Total Protein Albumin Urine WBC (Auto) Vancomycin Trough Salicylates Acetaminophen Plasma/Serum Alcohol Crossmatch 01/21/20 01/21/20 01/21/20 05:46 13:02 23:49 WBC RBC Hgb Hct MCH RDW Plt Count Lymph % (Auto) [place] % (Auto) [place] # Baso # Seg Neutrophils % Seg Neuts % (Manual) Lymphocytes % (Manual) Monocytes % (Manual) Seg Neutrophils # Seg Neutrophils # Man Lymphocytes # (Manual) Monocytes # (Manual) Eosinophils # (Manual) Basophils # (Manual) PT INR APTT ABG pH ABG pO2 ABG HCO3 ABG O2 Saturation ABG Base Excess ABG Hemoglobin Oxyhemoglobin Sodium Potassium Chloride Carbon Dioxide BUN Creatinine Glucose POC Glucose 114 H 136 H 120 H Lactic Acid Calcium Ionized Calcium Phosphorus Magnesium Total Bilirubin AST ALT Alkaline Phosphatase Ammonia Total Creatine Kinase CK-MB (CK-2) CK-MB (CK-2) Rel Index Total Protein Albumin Urine WBC (Auto) Vancomycin Trough Salicylates Acetaminophen Plasma/Serum Alcohol Crossmatch 01/22/20 01/22/20 01/22/20 05:41 11:44 16:31 WBC RBC Hgb Hct MCH RDW Plt Count Lymph % (Auto) [place] % (Auto) [place] # Baso # Seg Neutrophils % Seg Neuts % (Manual) Lymphocytes % (Manual) Monocytes % (Manual) Seg Neutrophils # Seg Neutrophils # Man Lymphocytes # (Manual) Monocytes # (Manual) Eosinophils # (Manual) Basophils # (Manual) PT INR APTT ABG pH ABG pO2 ABG HCO3 ABG O2 Saturation ABG Base Excess ABG Hemoglobin Oxyhemoglobin Sodium Potassium Chloride Carbon Dioxide BUN Creatinine Glucose POC Glucose 124 H 173 H 111 H Lactic Acid Calcium Ionized Calcium Phosphorus Magnesium Total Bilirubin AST ALT Alkaline Phosphatase Ammonia Total Creatine Kinase CK-MB (CK-2) CK-MB (CK-2) Rel Index Total Protein Albumin Urine WBC (Auto) Vancomycin Trough Salicylates Acetaminophen Plasma/Serum Alcohol Crossmatch 01/22/20 01/23/20 01/23/20 23:25 05:15 12:15 WBC RBC Hgb Hct MCH RDW Plt Count Lymph % (Auto) [place] % (Auto) [place] # Baso # Seg Neutrophils % Seg Neuts % (Manual) Lymphocytes % (Manual) Monocytes % (Manual) Seg Neutrophils # Seg Neutrophils # Man Lymphocytes # (Manual) Monocytes # (Manual) Eosinophils # (Manual) Basophils # (Manual) PT INR APTT ABG pH ABG pO2 ABG HCO3 ABG O2 Saturation ABG Base Excess ABG Hemoglobin Oxyhemoglobin Sodium Potassium Chloride Carbon Dioxide BUN Creatinine Glucose POC Glucose 134 H 117 H 129 H Lactic Acid Calcium Ionized Calcium Phosphorus Magnesium Total Bilirubin AST ALT Alkaline Phosphatase Ammonia Total Creatine Kinase CK-MB (CK-2) CK-MB (CK-2) Rel Index Total Protein Albumin Urine WBC (Auto) Vancomycin Trough Salicylates Acetaminophen Plasma/Serum Alcohol Crossmatch 01/23/20 01/23/20 01/23/20 16:58 21:17 23:47 WBC RBC Hgb Hct MCH RDW Plt Count Lymph % (Auto) [place] % (Auto) [place] # Baso # Seg Neutrophils % Seg Neuts % (Manual) Lymphocytes % (Manual) Monocytes % (Manual) Seg Neutrophils # Seg Neutrophils # Man Lymphocytes # (Manual) Monocytes # (Manual) Eosinophils # (Manual) Basophils # (Manual) PT INR APTT ABG pH ABG pO2 ABG HCO3 ABG O2 Saturation ABG Base Excess ABG Hemoglobin Oxyhemoglobin Sodium Potassium Chloride Carbon Dioxide BUN Creatinine Glucose POC Glucose 156 H 185 H 156 H Lactic Acid Calcium Ionized Calcium Phosphorus Magnesium Total Bilirubin AST ALT Alkaline Phosphatase Ammonia Total Creatine Kinase CK-MB (CK-2) CK-MB (CK-2) Rel Index Total Protein Albumin Urine WBC (Auto) Vancomycin Trough Salicylates Acetaminophen Plasma/Serum Alcohol Crossmatch 01/24/20 01/24/20 01/24/20 04:47 04:47 05:59 WBC 17.8 H RBC 3.60 L Hgb Hct MCH RDW 16.2 H Plt Count 688 H Lymph % (Auto) 11.8 L [place] % (Auto) 7.5 H [place] # 1.3 H Baso # Seg Neutrophils % 79.9 H Seg Neuts % (Manual) Lymphocytes % (Manual) Monocytes % (Manual) Seg Neutrophils # 14.2 H Seg Neutrophils # Man Lymphocytes # (Manual) Monocytes # (Manual) Eosinophils # (Manual) Basophils # (Manual) PT INR APTT ABG pH ABG pO2 ABG HCO3 ABG O2 Saturation ABG Base Excess ABG Hemoglobin Oxyhemoglobin Sodium 131 L Potassium Chloride 91.2 L Carbon Dioxide BUN 22 H Creatinine 0.3 L Glucose 123 H POC Glucose 147 H Lactic Acid Calcium 10.9 H Ionized Calcium Phosphorus Magnesium Total Bilirubin AST ALT Alkaline Phosphatase Ammonia Total Creatine Kinase CK-MB (CK-2) CK-MB (CK-2) Rel Index Total Protein Albumin Urine WBC (Auto) Vancomycin Trough Salicylates Acetaminophen Plasma/Serum Alcohol Crossmatch 01/24/20 01/24/20 01/25/20 11:47 16:45 00:18 WBC RBC Hgb Hct MCH RDW Plt Count Lymph % (Auto) [place] % (Auto) [place] # Baso # Seg Neutrophils % Seg Neuts % (Manual) Lymphocytes % (Manual) Monocytes % (Manual) Seg Neutrophils # Seg Neutrophils # Man Lymphocytes # (Manual) Monocytes # (Manual) Eosinophils # (Manual) Basophils # (Manual) PT INR APTT ABG pH ABG pO2 ABG HCO3 ABG O2 Saturation ABG Base Excess ABG Hemoglobin Oxyhemoglobin Sodium Potassium Chloride Carbon Dioxide BUN Creatinine Glucose POC Glucose 114 H 108 H 119 H Lactic Acid Calcium Ionized Calcium Phosphorus Magnesium Total Bilirubin AST ALT Alkaline Phosphatase Ammonia Total Creatine Kinase CK-MB (CK-2) CK-MB (CK-2) Rel Index Total Protein Albumin Urine WBC (Auto) Vancomycin Trough Salicylates Acetaminophen Plasma/Serum Alcohol Crossmatch 01/25/20 01/25/20 01/25/20 07:18 11:58 16:56 WBC RBC Hgb Hct MCH RDW Plt Count Lymph % (Auto) [place] % (Auto) [place] # Baso # Seg Neutrophils % Seg Neuts % (Manual) Lymphocytes % (Manual) Monocytes % (Manual) Seg Neutrophils # Seg Neutrophils # Man Lymphocytes # (Manual) Monocytes # (Manual) Eosinophils # (Manual) Basophils # (Manual) PT INR APTT ABG pH ABG pO2 ABG HCO3 ABG O2 Saturation ABG Base Excess ABG Hemoglobin Oxyhemoglobin Sodium Potassium Chloride Carbon Dioxide BUN Creatinine Glucose POC Glucose 136 H 136 H 147 H Lactic Acid Calcium Ionized Calcium Phosphorus Magnesium Total Bilirubin AST ALT Alkaline Phosphatase Ammonia Total Creatine Kinase CK-MB (CK-2) CK-MB (CK-2) Rel Index Total Protein Albumin Urine WBC (Auto) Vancomycin Trough Salicylates Acetaminophen Plasma/Serum Alcohol Crossmatch 01/26/20 01/26/20 01/26/20 00:29 05:59 05:59 WBC 12.8 H RBC Hgb Hct MCH RDW 16.4 H Plt Count 743 H Lymph % (Auto) [place] % (Auto) [place] # 0.9 H Baso # Seg Neutrophils % 76.2 H Seg Neuts % (Manual) Lymphocytes % (Manual) Monocytes % (Manual) Seg Neutrophils # 9.8 H Seg Neutrophils # Man Lymphocytes # (Manual) Monocytes # (Manual) Eosinophils # (Manual) Basophils # (Manual) PT INR APTT ABG pH ABG pO2 ABG HCO3 ABG O2 Saturation ABG Base Excess ABG Hemoglobin Oxyhemoglobin Sodium 132 L Potassium Chloride 90.9 L Carbon Dioxide BUN 23 H Creatinine 0.4 L Glucose 122 H POC Glucose 107 H Lactic Acid Calcium 11.0 H Ionized Calcium Phosphorus Magnesium Total Bilirubin AST ALT Alkaline Phosphatase Ammonia Total Creatine Kinase CK-MB (CK-2) CK-MB (CK-2) Rel Index Total Protein Albumin Urine WBC (Auto) Vancomycin Trough Salicylates Acetaminophen Plasma/Serum Alcohol Crossmatch 01/26/20 01/26/20 01/26/20 06:27 12:06 16:49 WBC RBC Hgb Hct MCH RDW Plt Count Lymph % (Auto) [place] % (Auto) [place] # Baso # Seg Neutrophils % Seg Neuts % (Manual) Lymphocytes % (Manual) Monocytes % (Manual) Seg Neutrophils # Seg Neutrophils # Man Lymphocytes # (Manual) Monocytes # (Manual) Eosinophils # (Manual) Basophils # (Manual) PT INR APTT ABG pH ABG pO2 ABG HCO3 ABG O2 Saturation ABG Base Excess ABG Hemoglobin Oxyhemoglobin Sodium Potassium Chloride Carbon Dioxide BUN Creatinine Glucose POC Glucose 132 H 132 H 110 H Lactic Acid Calcium Ionized Calcium Phosphorus Magnesium Total Bilirubin AST ALT Alkaline Phosphatase Ammonia Total Creatine Kinase CK-MB (CK-2) CK-MB (CK-2) Rel Index Total Protein Albumin Urine WBC (Auto) Vancomycin Trough Salicylates Acetaminophen Plasma/Serum Alcohol Crossmatch 01/27/20 01/27/20 01/27/20 00:08 11:49 16:24 WBC RBC Hgb Hct MCH RDW Plt Count Lymph % (Auto) [place] % (Auto) [place] # Baso # Seg Neutrophils % Seg Neuts % (Manual) Lymphocytes % (Manual) Monocytes % (Manual) Seg Neutrophils # Seg Neutrophils # Man Lymphocytes # (Manual) Monocytes # (Manual) Eosinophils # (Manual) Basophils # (Manual) PT INR APTT ABG pH ABG pO2 ABG HCO3 ABG O2 Saturation ABG Base Excess ABG Hemoglobin Oxyhemoglobin Sodium Potassium Chloride Carbon Dioxide BUN Creatinine Glucose POC Glucose 107 H 119 H 129 H Lactic Acid Calcium Ionized Calcium Phosphorus Magnesium Total Bilirubin AST ALT Alkaline Phosphatase Ammonia Total Creatine Kinase CK-MB (CK-2) CK-MB (CK-2) Rel Index Total Protein Albumin Urine WBC (Auto) Vancomycin Trough Salicylates Acetaminophen Plasma/Serum Alcohol Crossmatch 01/27/20 01/28/20 01/28/20 18:28 01:00 06:22 WBC RBC Hgb Hct MCH RDW Plt Count Lymph % (Auto) [place] % (Auto) [place] # Baso # Seg Neutrophils % Seg Neuts % (Manual) Lymphocytes % (Manual) Monocytes % (Manual) Seg Neutrophils # Seg Neutrophils # Man Lymphocytes # (Manual) Monocytes # (Manual) Eosinophils # (Manual) Basophils # (Manual) PT INR APTT ABG pH ABG pO2 ABG HCO3 ABG O2 Saturation ABG Base Excess ABG Hemoglobin Oxyhemoglobin Sodium Potassium Chloride Carbon Dioxide BUN Creatinine Glucose POC Glucose 126 H 121 H 114 H Lactic Acid Calcium Ionized Calcium Phosphorus Magnesium Total Bilirubin AST ALT Alkaline Phosphatase Ammonia Total Creatine Kinase CK-MB (CK-2) CK-MB (CK-2) Rel Index Total Protein Albumin Urine WBC (Auto) Vancomycin Trough Salicylates Acetaminophen Plasma/Serum Alcohol Crossmatch 01/28/20 01/28/20 01/29/20 11:47 18:00 00:05 WBC RBC Hgb Hct MCH RDW Plt Count Lymph % (Auto) [place] % (Auto) [place] # Baso # Seg Neutrophils % Seg Neuts % (Manual) Lymphocytes % (Manual) Monocytes % (Manual) Seg Neutrophils # Seg Neutrophils # Man Lymphocytes # (Manual) Monocytes # (Manual) Eosinophils # (Manual) Basophils # (Manual) PT INR APTT ABG pH ABG pO2 ABG HCO3 ABG O2 Saturation ABG Base Excess ABG Hemoglobin Oxyhemoglobin Sodium Potassium Chloride Carbon Dioxide BUN Creatinine Glucose POC Glucose 106 H 117 H 127 H Lactic Acid Calcium Ionized Calcium Phosphorus Magnesium Total Bilirubin AST ALT Alkaline Phosphatase Ammonia Total Creatine Kinase CK-MB (CK-2) CK-MB (CK-2) Rel Index Total Protein Albumin Urine WBC (Auto) Vancomycin Trough Salicylates Acetaminophen Plasma/Serum Alcohol Crossmatch 01/29/20 01/29/20 01/29/20 06:04 11:40 16:38 WBC RBC Hgb Hct MCH RDW Plt Count Lymph % (Auto) [place] % (Auto) [place] # Baso # Seg Neutrophils % Seg Neuts % (Manual) Lymphocytes % (Manual) Monocytes % (Manual) Seg Neutrophils # Seg Neutrophils # Man Lymphocytes # (Manual) Monocytes # (Manual) Eosinophils # (Manual) Basophils # (Manual) PT INR APTT ABG pH ABG pO2 ABG HCO3 ABG O2 Saturation ABG Base Excess ABG Hemoglobin Oxyhemoglobin Sodium Potassium Chloride Carbon Dioxide BUN Creatinine Glucose POC Glucose 147 H 139 H 143 H Lactic Acid Calcium Ionized Calcium Phosphorus Magnesium Total Bilirubin AST ALT Alkaline Phosphatase Ammonia Total Creatine Kinase CK-MB (CK-2) CK-MB (CK-2) Rel Index Total Protein Albumin Urine WBC (Auto) Vancomycin Trough Salicylates Acetaminophen Plasma/Serum Alcohol Crossmatch 01/29/20 01/30/20 01/30/20 23:46 06:43 12:07 WBC RBC Hgb Hct MCH RDW Plt Count Lymph % (Auto) [place] % (Auto) [place] # Baso # Seg Neutrophils % Seg Neuts % (Manual) Lymphocytes % (Manual) Monocytes % (Manual) Seg Neutrophils # Seg Neutrophils # Man Lymphocytes # (Manual) Monocytes # (Manual) Eosinophils # (Manual) Basophils # (Manual) PT INR APTT ABG pH ABG pO2 ABG HCO3 ABG O2 Saturation ABG Base Excess ABG Hemoglobin Oxyhemoglobin Sodium Potassium Chloride Carbon Dioxide BUN Creatinine Glucose POC Glucose 122 H 122 H 134 H Lactic Acid Calcium Ionized Calcium Phosphorus Magnesium Total Bilirubin AST ALT Alkaline Phosphatase Ammonia Total Creatine Kinase CK-MB (CK-2) CK-MB (CK-2) Rel Index Total Protein Albumin Urine WBC (Auto) Vancomycin Trough Salicylates Acetaminophen Plasma/Serum Alcohol Crossmatch 01/30/20 01/31/20 01/31/20 17:59 00:52 05:54 WBC RBC Hgb Hct MCH RDW Plt Count Lymph % (Auto) [place] % (Auto) [place] # Baso # Seg Neutrophils % Seg Neuts % (Manual) Lymphocytes % (Manual) Monocytes % (Manual) Seg Neutrophils # Seg Neutrophils # Man Lymphocytes # (Manual) Monocytes # (Manual) Eosinophils # (Manual) Basophils # (Manual) PT INR APTT ABG pH ABG pO2 ABG HCO3 ABG O2 Saturation ABG Base Excess ABG Hemoglobin Oxyhemoglobin Sodium Potassium Chloride Carbon Dioxide BUN Creatinine Glucose POC Glucose 116 H 127 H 127 H Lactic Acid Calcium Ionized Calcium Phosphorus Magnesium Total Bilirubin AST ALT Alkaline Phosphatase Ammonia Total Creatine Kinase CK-MB (CK-2) CK-MB (CK-2) Rel Index Total Protein Albumin Urine WBC (Auto) Vancomycin Trough Salicylates Acetaminophen Plasma/Serum Alcohol Crossmatch 01/31/20 02/01/20 02/01/20 12:20 00:48 12:21 WBC RBC Hgb Hct MCH RDW Plt Count Lymph % (Auto) [place] % (Auto) [place] # Baso # Seg Neutrophils % Seg Neuts % (Manual) Lymphocytes % (Manual) Monocytes % (Manual) Seg Neutrophils # Seg Neutrophils # Man Lymphocytes # (Manual) Monocytes # (Manual) Eosinophils # (Manual) Basophils # (Manual) PT INR APTT ABG pH ABG pO2 ABG HCO3 ABG O2 Saturation ABG Base Excess ABG Hemoglobin Oxyhemoglobin Sodium Potassium Chloride Carbon Dioxide BUN Creatinine Glucose POC Glucose 126 H 154 H 123 H Lactic Acid Calcium Ionized Calcium Phosphorus Magnesium Total Bilirubin AST ALT Alkaline Phosphatase Ammonia Total Creatine Kinase CK-MB (CK-2) CK-MB (CK-2) Rel Index Total Protein Albumin Urine WBC (Auto) Vancomycin Trough Salicylates Acetaminophen Plasma/Serum Alcohol Crossmatch 02/01/20 02/02/20 02/02/20 23:58 06:08 11:50 WBC RBC Hgb Hct MCH RDW Plt Count Lymph % (Auto) [place] % (Auto) [place] # Baso # Seg Neutrophils % Seg Neuts % (Manual) Lymphocytes % (Manual) Monocytes % (Manual) Seg Neutrophils # Seg Neutrophils # Man Lymphocytes # (Manual) Monocytes # (Manual) Eosinophils # (Manual) Basophils # (Manual) PT INR APTT ABG pH ABG pO2 ABG HCO3 ABG O2 Saturation ABG Base Excess ABG Hemoglobin Oxyhemoglobin Sodium Potassium Chloride Carbon Dioxide BUN Creatinine Glucose POC Glucose 125 H 144 H 131 H Lactic Acid Calcium Ionized Calcium Phosphorus Magnesium Total Bilirubin AST ALT Alkaline Phosphatase Ammonia Total Creatine Kinase CK-MB (CK-2) CK-MB (CK-2) Rel Index Total Protein Albumin Urine WBC (Auto) Vancomycin Trough Salicylates Acetaminophen Plasma/Serum Alcohol Crossmatch 02/02/20 02/03/20 02/03/20 17:53 00:14 05:47 WBC RBC Hgb Hct MCH RDW Plt Count Lymph % (Auto) [place] % (Auto) [place] # Baso # Seg Neutrophils % Seg Neuts % (Manual) Lymphocytes % (Manual) Monocytes % (Manual) Seg Neutrophils # Seg Neutrophils # Man Lymphocytes # (Manual) Monocytes # (Manual) Eosinophils # (Manual) Basophils # (Manual) PT INR APTT ABG pH ABG pO2 ABG HCO3 ABG O2 Saturation ABG Base Excess ABG Hemoglobin Oxyhemoglobin Sodium Potassium Chloride Carbon Dioxide BUN Creatinine Glucose POC Glucose 108 H 122 H 118 H Lactic Acid Calcium Ionized Calcium Phosphorus Magnesium Total Bilirubin AST ALT Alkaline Phosphatase Ammonia Total Creatine Kinase CK-MB (CK-2) CK-MB (CK-2) Rel Index Total Protein Albumin Urine WBC (Auto) Vancomycin Trough Salicylates Acetaminophen Plasma/Serum Alcohol Crossmatch 02/03/20 02/03/20 02/03/20 05:59 05:59 11:49 WBC RBC 3.48 L Hgb Hct 29.9 L MCH RDW 16.2 H Plt Count 707 H Lymph % (Auto) [place] % (Auto) 9.3 H [place] # 0.9 H Baso # Seg Neutrophils % Seg Neuts % (Manual) Lymphocytes % (Manual) Monocytes % (Manual) Seg Neutrophils # Seg Neutrophils # Man Lymphocytes # (Manual) Monocytes # (Manual) Eosinophils # (Manual) Basophils # (Manual) PT INR APTT ABG pH ABG pO2 ABG HCO3 ABG O2 Saturation ABG Base Excess ABG Hemoglobin Oxyhemoglobin Sodium 136 L Potassium Chloride 93.4 L Carbon Dioxide BUN 20 H Creatinine 0.5 L Glucose 101 H POC Glucose 133 H Lactic Acid Calcium 10.8 H Ionized Calcium Phosphorus Magnesium Total Bilirubin AST ALT Alkaline Phosphatase Ammonia Total Creatine Kinase CK-MB (CK-2) CK-MB (CK-2) Rel Index Total Protein Albumin Urine WBC (Auto) Vancomycin Trough Salicylates Acetaminophen Plasma/Serum Alcohol Crossmatch 02/03/20 02/04/20 02/04/20 23:19 05:37 23:56 WBC RBC Hgb Hct MCH RDW Plt Count Lymph % (Auto) [place] % (Auto) [place] # Baso # Seg Neutrophils % Seg Neuts % (Manual) Lymphocytes % (Manual) Monocytes % (Manual) Seg Neutrophils # Seg Neutrophils # Man Lymphocytes # (Manual) Monocytes # (Manual) Eosinophils # (Manual) Basophils # (Manual) PT INR APTT ABG pH ABG pO2 ABG HCO3 ABG O2 Saturation ABG Base Excess ABG Hemoglobin Oxyhemoglobin Sodium Potassium Chloride Carbon Dioxide BUN Creatinine Glucose POC Glucose 135 H 108 H 158 H Lactic Acid Calcium Ionized Calcium Phosphorus Magnesium Total Bilirubin AST ALT Alkaline Phosphatase Ammonia Total Creatine Kinase CK-MB (CK-2) CK-MB (CK-2) Rel Index Total Protein Albumin Urine WBC (Auto) Vancomycin Trough Salicylates Acetaminophen Plasma/Serum Alcohol Crossmatch 02/05/20 02/05/20 02/06/20 05:33 23:24 05:50 WBC RBC Hgb Hct MCH RDW Plt Count Lymph % (Auto) [place] % (Auto) [place] # Baso # Seg Neutrophils % Seg Neuts % (Manual) Lymphocytes % (Manual) Monocytes % (Manual) Seg Neutrophils # Seg Neutrophils # Man Lymphocytes # (Manual) Monocytes # (Manual) Eosinophils # (Manual) Basophils # (Manual) PT INR APTT ABG pH ABG pO2 ABG HCO3 ABG O2 Saturation ABG Base Excess ABG Hemoglobin Oxyhemoglobin Sodium Potassium Chloride Carbon Dioxide BUN Creatinine Glucose POC Glucose 152 H 158 H 110 H Lactic Acid Calcium Ionized Calcium Phosphorus Magnesium Total Bilirubin AST ALT Alkaline Phosphatase Ammonia Total Creatine Kinase CK-MB (CK-2) CK-MB (CK-2) Rel Index Total Protein Albumin Urine WBC (Auto) Vancomycin Trough Salicylates Acetaminophen Plasma/Serum Alcohol Crossmatch 02/06/20 02/07/20 02/07/20 16:03 00:13 05:27 WBC RBC Hgb Hct MCH RDW Plt Count Lymph % (Auto) [place] % (Auto) [place] # Baso # Seg Neutrophils % Seg Neuts % (Manual) Lymphocytes % (Manual) Monocytes % (Manual) Seg Neutrophils # Seg Neutrophils # Man Lymphocytes # (Manual) Monocytes # (Manual) Eosinophils # (Manual) Basophils # (Manual) PT INR APTT ABG pH ABG pO2 ABG HCO3 ABG O2 Saturation ABG Base Excess ABG Hemoglobin Oxyhemoglobin Sodium Potassium Chloride Carbon Dioxide BUN Creatinine Glucose POC Glucose 130 H 115 H 115 H Lactic Acid Calcium Ionized Calcium Phosphorus Magnesium Total Bilirubin AST ALT Alkaline Phosphatase Ammonia Total Creatine Kinase CK-MB (CK-2) CK-MB (CK-2) Rel Index Total Protein Albumin Urine WBC (Auto) Vancomycin Trough Salicylates Acetaminophen Plasma/Serum Alcohol Crossmatch 02/07/20 02/07/20 02/08/20 11:42 17:23 00:37 WBC RBC Hgb Hct MCH RDW Plt Count Lymph % (Auto) [place] % (Auto) [place] # Baso # Seg Neutrophils % Seg Neuts % (Manual) Lymphocytes % (Manual) Monocytes % (Manual) Seg Neutrophils # Seg Neutrophils # Man Lymphocytes # (Manual) Monocytes # (Manual) Eosinophils # (Manual) Basophils # (Manual) PT INR APTT ABG pH ABG pO2 ABG HCO3 ABG O2 Saturation ABG Base Excess ABG Hemoglobin Oxyhemoglobin Sodium Potassium Chloride Carbon Dioxide BUN Creatinine Glucose POC Glucose 113 H 114 H 136 H Lactic Acid Calcium Ionized Calcium Phosphorus Magnesium Total Bilirubin AST ALT Alkaline Phosphatase Ammonia Total Creatine Kinase CK-MB (CK-2) CK-MB (CK-2) Rel Index Total Protein Albumin Urine WBC (Auto) Vancomycin Trough Salicylates Acetaminophen Plasma/Serum Alcohol Crossmatch 02/08/20 02/08/20 02/08/20 08:52 11:42 17:02 WBC RBC Hgb Hct MCH RDW Plt Count Lymph % (Auto) [place] % (Auto) [place] # Baso # Seg Neutrophils % Seg Neuts % (Manual) Lymphocytes % (Manual) Monocytes % (Manual) Seg Neutrophils # Seg Neutrophils # Man Lymphocytes # (Manual) Monocytes # (Manual) Eosinophils # (Manual) Basophils # (Manual) PT INR APTT ABG pH ABG pO2 ABG HCO3 ABG O2 Saturation ABG Base Excess ABG Hemoglobin Oxyhemoglobin Sodium 136 L Potassium Chloride 95.7 L Carbon Dioxide BUN 21 H Creatinine 0.4 L Glucose POC Glucose 128 H 145 H Lactic Acid Calcium 10.4 H Ionized Calcium Phosphorus Magnesium Total Bilirubin AST ALT Alkaline Phosphatase Ammonia Total Creatine Kinase CK-MB (CK-2) CK-MB (CK-2) Rel Index Total Protein Albumin Urine WBC (Auto) Vancomycin Trough Salicylates Acetaminophen Plasma/Serum Alcohol Crossmatch 02/09/20 02/09/20 02/09/20 01:05 11:52 16:19 WBC RBC Hgb Hct MCH RDW Plt Count Lymph % (Auto) [place] % (Auto) [place] # Baso # Seg Neutrophils % Seg Neuts % (Manual) Lymphocytes % (Manual) Monocytes % (Manual) Seg Neutrophils # Seg Neutrophils # Man Lymphocytes # (Manual) Monocytes # (Manual) Eosinophils # (Manual) Basophils # (Manual) PT INR APTT ABG pH ABG pO2 ABG HCO3 ABG O2 Saturation ABG Base Excess ABG Hemoglobin Oxyhemoglobin Sodium Potassium Chloride Carbon Dioxide BUN Creatinine Glucose POC Glucose 117 H 141 H 113 H Lactic Acid Calcium Ionized Calcium Phosphorus Magnesium Total Bilirubin AST ALT Alkaline Phosphatase Ammonia Total Creatine Kinase CK-MB (CK-2) CK-MB (CK-2) Rel Index Total Protein Albumin Urine WBC (Auto) Vancomycin Trough Salicylates Acetaminophen Plasma/Serum Alcohol Crossmatch 02/10/20 02/10/20 02/10/20 05:25 12:50 17:08 WBC RBC Hgb Hct MCH RDW Plt Count Lymph % (Auto) [place] % (Auto) [place] # Baso # Seg Neutrophils % Seg Neuts % (Manual) Lymphocytes % (Manual) Monocytes % (Manual) Seg Neutrophils # Seg Neutrophils # Man Lymphocytes # (Manual) Monocytes # (Manual) Eosinophils # (Manual) Basophils # (Manual) PT INR APTT ABG pH ABG pO2 ABG HCO3 ABG O2 Saturation ABG Base Excess ABG Hemoglobin Oxyhemoglobin Sodium Potassium Chloride Carbon Dioxide BUN Creatinine Glucose POC Glucose 136 H 127 H 111 H Lactic Acid Calcium Ionized Calcium Phosphorus Magnesium Total Bilirubin AST ALT Alkaline Phosphatase Ammonia Total Creatine Kinase CK-MB (CK-2) CK-MB (CK-2) Rel Index Total Protein Albumin Urine WBC (Auto) Vancomycin Trough Salicylates Acetaminophen Plasma/Serum Alcohol Crossmatch 02/10/20 02/11/20 02/11/20 23:55 06:11 12:07 WBC RBC Hgb Hct MCH RDW Plt Count Lymph % (Auto) [place] % (Auto) [place] # Baso # Seg Neutrophils % Seg Neuts % (Manual) Lymphocytes % (Manual) Monocytes % (Manual) Seg Neutrophils # Seg Neutrophils # Man Lymphocytes # (Manual) Monocytes # (Manual) Eosinophils # (Manual) Basophils # (Manual) PT INR APTT ABG pH ABG pO2 ABG HCO3 ABG O2 Saturation ABG Base Excess ABG Hemoglobin Oxyhemoglobin Sodium Potassium Chloride Carbon Dioxide BUN Creatinine Glucose POC Glucose 129 H 128 H 141 H Lactic Acid Calcium Ionized Calcium Phosphorus Magnesium Total Bilirubin AST ALT Alkaline Phosphatase Ammonia Total Creatine Kinase CK-MB (CK-2) CK-MB (CK-2) Rel Index Total Protein Albumin Urine WBC (Auto) Vancomycin Trough Salicylates Acetaminophen Plasma/Serum Alcohol Crossmatch 02/11/20 02/12/20 02/13/20 18:22 02:39 06:45 WBC RBC Hgb Hct MCH RDW Plt Count Lymph % (Auto) [place] % (Auto) [place] # Baso # Seg Neutrophils % Seg Neuts % (Manual) Lymphocytes % (Manual) Monocytes % (Manual) Seg Neutrophils # Seg Neutrophils # Man Lymphocytes # (Manual) Monocytes # (Manual) Eosinophils # (Manual) Basophils # (Manual) PT INR APTT ABG pH ABG pO2 ABG HCO3 ABG O2 Saturation ABG Base Excess ABG Hemoglobin Oxyhemoglobin Sodium Potassium Chloride Carbon Dioxide BUN Creatinine Glucose POC Glucose 118 H 107 H 124 H Lactic Acid Calcium Ionized Calcium Phosphorus Magnesium Total Bilirubin AST ALT Alkaline Phosphatase Ammonia Total Creatine Kinase CK-MB (CK-2) CK-MB (CK-2) Rel Index Total Protein Albumin Urine WBC (Auto) Vancomycin Trough Salicylates Acetaminophen Plasma/Serum Alcohol Crossmatch 02/13/20 02/13/20 02/14/20 12:26 18:19 00:21 WBC RBC Hgb Hct MCH RDW Plt Count Lymph % (Auto) [place] % (Auto) [place] # Baso # Seg Neutrophils % Seg Neuts % (Manual) Lymphocytes % (Manual) Monocytes % (Manual) Seg Neutrophils # Seg Neutrophils # Man Lymphocytes # (Manual) Monocytes # (Manual) Eosinophils # (Manual) Basophils # (Manual) PT INR APTT ABG pH ABG pO2 ABG HCO3 ABG O2 Saturation ABG Base Excess ABG Hemoglobin Oxyhemoglobin Sodium Potassium Chloride Carbon Dioxide BUN Creatinine Glucose POC Glucose 124 H 118 H 130 H Lactic Acid Calcium Ionized Calcium Phosphorus Magnesium Total Bilirubin AST ALT Alkaline Phosphatase Ammonia Total Creatine Kinase CK-MB (CK-2) CK-MB (CK-2) Rel Index Total Protein Albumin Urine WBC (Auto) Vancomycin Trough Salicylates Acetaminophen Plasma/Serum Alcohol Crossmatch 02/14/20 02/14/20 02/16/20 11:19 16:16 00:58 WBC RBC Hgb Hct MCH RDW Plt Count Lymph % (Auto) [place] % (Auto) [place] # Baso # Seg Neutrophils % Seg Neuts % (Manual) Lymphocytes % (Manual) Monocytes % (Manual) Seg Neutrophils # Seg Neutrophils # Man Lymphocytes # (Manual) Monocytes # (Manual) Eosinophils # (Manual) Basophils # (Manual) PT INR APTT ABG pH ABG pO2 ABG HCO3 ABG O2 Saturation ABG Base Excess ABG Hemoglobin Oxyhemoglobin Sodium Potassium Chloride Carbon Dioxide BUN Creatinine Glucose POC Glucose 135 H 119 H 121 H Lactic Acid Calcium Ionized Calcium Phosphorus Magnesium Total Bilirubin AST ALT Alkaline Phosphatase Ammonia Total Creatine Kinase CK-MB (CK-2) CK-MB (CK-2) Rel Index Total Protein Albumin Urine WBC (Auto) Vancomycin Trough Salicylates Acetaminophen Plasma/Serum Alcohol Crossmatch 02/16/20 02/16/20 02/16/20 12:12 18:22 23:51 WBC RBC Hgb Hct MCH RDW Plt Count Lymph % (Auto) [place] % (Auto) [place] # Baso # Seg Neutrophils % Seg Neuts % (Manual) Lymphocytes % (Manual) Monocytes % (Manual) Seg Neutrophils # Seg Neutrophils # Man Lymphocytes # (Manual) Monocytes # (Manual) Eosinophils # (Manual) Basophils # (Manual) PT INR APTT ABG pH ABG pO2 ABG HCO3 ABG O2 Saturation ABG Base Excess ABG Hemoglobin Oxyhemoglobin Sodium Potassium Chloride Carbon Dioxide BUN Creatinine Glucose POC Glucose 107 H 106 H 128 H Lactic Acid Calcium Ionized Calcium Phosphorus Magnesium Total Bilirubin AST ALT Alkaline Phosphatase Ammonia Total Creatine Kinase CK-MB (CK-2) CK-MB (CK-2) Rel Index Total Protein Albumin Urine WBC (Auto) Vancomycin Trough Salicylates Acetaminophen Plasma/Serum Alcohol Crossmatch 02/17/20 02/17/20 02/17/20 05:50 07:57 07:57 WBC 12.6 H RBC 3.52 L Hgb Hct MCH RDW 15.3 H Plt Count 643 H Lymph % (Auto) [place] % (Auto) 8.0 H [place] # 1.0 H Baso # Seg Neutrophils % Seg Neuts % (Manual) Lymphocytes % (Manual) Monocytes % (Manual) Seg Neutrophils # 8.5 H Seg Neutrophils # Man Lymphocytes # (Manual) Monocytes # (Manual) Eosinophils # (Manual) Basophils # (Manual) PT INR APTT ABG pH ABG pO2 ABG HCO3 ABG O2 Saturation ABG Base Excess ABG Hemoglobin Oxyhemoglobin Sodium Potassium Chloride 96.9 L Carbon Dioxide BUN 21 H Creatinine 0.4 L Glucose 113 H POC Glucose 116 H Lactic Acid Calcium 10.5 H Ionized Calcium Phosphorus Magnesium Total Bilirubin AST ALT Alkaline Phosphatase Ammonia Total Creatine Kinase CK-MB (CK-2) CK-MB (CK-2) Rel Index Total Protein Albumin Urine WBC (Auto) Vancomycin Trough Salicylates Acetaminophen Plasma/Serum Alcohol Crossmatch 02/17/20 02/17/20 02/18/20 12:05 18:16 00:13 WBC RBC Hgb Hct MCH RDW Plt Count Lymph % (Auto) [place] % (Auto) [place] # Baso # Seg Neutrophils % Seg Neuts % (Manual) Lymphocytes % (Manual) Monocytes % (Manual) Seg Neutrophils # Seg Neutrophils # Man Lymphocytes # (Manual) Monocytes # (Manual) Eosinophils # (Manual) Basophils # (Manual) PT INR APTT ABG pH ABG pO2 ABG HCO3 ABG O2 Saturation ABG Base Excess ABG Hemoglobin Oxyhemoglobin Sodium Potassium Chloride Carbon Dioxide BUN Creatinine Glucose POC Glucose 139 H 127 H 144 H Lactic Acid Calcium Ionized Calcium Phosphorus Magnesium Total Bilirubin AST ALT Alkaline Phosphatase Ammonia Total Creatine Kinase CK-MB (CK-2) CK-MB (CK-2) Rel Index Total Protein Albumin Urine WBC (Auto) Vancomycin Trough Salicylates Acetaminophen Plasma/Serum Alcohol Crossmatch 02/18/20 02/18/20 02/19/20 17:41 23:28 05:17 WBC RBC Hgb Hct MCH RDW Plt Count Lymph % (Auto) [place] % (Auto) [place] # Baso # Seg Neutrophils % Seg Neuts % (Manual) Lymphocytes % (Manual) Monocytes % (Manual) Seg Neutrophils # Seg Neutrophils # Man Lymphocytes # (Manual) Monocytes # (Manual) Eosinophils # (Manual) Basophils # (Manual) PT INR APTT ABG pH ABG pO2 ABG HCO3 ABG O2 Saturation ABG Base Excess ABG Hemoglobin Oxyhemoglobin Sodium Potassium Chloride Carbon Dioxide BUN Creatinine Glucose POC Glucose 118 H 166 H 116 H Lactic Acid Calcium Ionized Calcium Phosphorus Magnesium Total Bilirubin AST ALT Alkaline Phosphatase Ammonia Total Creatine Kinase CK-MB (CK-2) CK-MB (CK-2) Rel Index Total Protein Albumin Urine WBC (Auto) Vancomycin Trough Salicylates Acetaminophen Plasma/Serum Alcohol Crossmatch 02/19/20 02/19/20 02/20/20 12:33 17:02 00:12 WBC RBC Hgb Hct MCH RDW Plt Count Lymph % (Auto) [place] % (Auto) [place] # Baso # Seg Neutrophils % Seg Neuts % (Manual) Lymphocytes % (Manual) Monocytes % (Manual) Seg Neutrophils # Seg Neutrophils # Man Lymphocytes # (Manual) Monocytes # (Manual) Eosinophils # (Manual) Basophils # (Manual) PT INR APTT ABG pH ABG pO2 ABG HCO3 ABG O2 Saturation ABG Base Excess ABG Hemoglobin Oxyhemoglobin Sodium Potassium Chloride Carbon Dioxide BUN Creatinine Glucose POC Glucose 115 H 108 H 153 H Lactic Acid Calcium Ionized Calcium Phosphorus Magnesium Total Bilirubin AST ALT Alkaline Phosphatase Ammonia Total Creatine Kinase CK-MB (CK-2) CK-MB (CK-2) Rel Index Total Protein Albumin Urine WBC (Auto) Vancomycin Trough Salicylates Acetaminophen Plasma/Serum Alcohol Crossmatch 02/20/20 02/20/20 02/21/20 12:00 23:13 05:07 WBC RBC Hgb Hct MCH RDW Plt Count Lymph % (Auto) [place] % (Auto) [place] # Baso # Seg Neutrophils % Seg Neuts % (Manual) Lymphocytes % (Manual) Monocytes % (Manual) Seg Neutrophils # Seg Neutrophils # Man Lymphocytes # (Manual) Monocytes # (Manual) Eosinophils # (Manual) Basophils # (Manual) PT INR APTT ABG pH ABG pO2 ABG HCO3 ABG O2 Saturation ABG Base Excess ABG Hemoglobin Oxyhemoglobin Sodium Potassium Chloride Carbon Dioxide BUN Creatinine Glucose POC Glucose 171 H 129 H 116 H Lactic Acid Calcium Ionized Calcium Phosphorus Magnesium Total Bilirubin AST ALT Alkaline Phosphatase Ammonia Total Creatine Kinase CK-MB (CK-2) CK-MB (CK-2) Rel Index Total Protein Albumin Urine WBC (Auto) Vancomycin Trough Salicylates Acetaminophen Plasma/Serum Alcohol Crossmatch 02/21/20 02/22/20 02/22/20 12:15 00:42 06:30 WBC RBC Hgb Hct MCH RDW Plt Count Lymph % (Auto) [place] % (Auto) [place] # Baso # Seg Neutrophils % Seg Neuts % (Manual) Lymphocytes % (Manual) Monocytes % (Manual) Seg Neutrophils # Seg Neutrophils # Man Lymphocytes # (Manual) Monocytes # (Manual) Eosinophils # (Manual) Basophils # (Manual) PT INR APTT ABG pH ABG pO2 ABG HCO3 ABG O2 Saturation ABG Base Excess ABG Hemoglobin Oxyhemoglobin Sodium Potassium Chloride Carbon Dioxide BUN Creatinine Glucose POC Glucose 124 H 142 H 117 H Lactic Acid Calcium Ionized Calcium Phosphorus Magnesium Total Bilirubin AST ALT Alkaline Phosphatase Ammonia Total Creatine Kinase CK-MB (CK-2) CK-MB (CK-2) Rel Index Total Protein Albumin Urine WBC (Auto) Vancomycin Trough Salicylates Acetaminophen Plasma/Serum Alcohol Crossmatch 02/22/20 02/22/20 02/23/20 12:20 17:55 12:46 WBC RBC Hgb Hct MCH RDW Plt Count Lymph % (Auto) [place] % (Auto) [place] # Baso # Seg Neutrophils % Seg Neuts % (Manual) Lymphocytes % (Manual) Monocytes % (Manual) Seg Neutrophils # Seg Neutrophils # Man Lymphocytes # (Manual) Monocytes # (Manual) Eosinophils # (Manual) Basophils # (Manual) PT INR APTT ABG pH ABG pO2 ABG HCO3 ABG O2 Saturation ABG Base Excess ABG Hemoglobin Oxyhemoglobin Sodium Potassium Chloride Carbon Dioxide BUN Creatinine Glucose POC Glucose 121 H 157 H 112 H Lactic Acid Calcium Ionized Calcium Phosphorus Magnesium Total Bilirubin AST ALT Alkaline Phosphatase Ammonia Total Creatine Kinase CK-MB (CK-2) CK-MB (CK-2) Rel Index Total Protein Albumin Urine WBC (Auto) Vancomycin Trough Salicylates Acetaminophen Plasma/Serum Alcohol Crossmatch 02/23/20 02/24/20 02/24/20 16:47 00:38 07:00 WBC RBC Hgb Hct MCH RDW Plt Count Lymph % (Auto) [place] % (Auto) [place] # Baso # Seg Neutrophils % Seg Neuts % (Manual) Lymphocytes % (Manual) Monocytes % (Manual) Seg Neutrophils # Seg Neutrophils # Man Lymphocytes # (Manual) Monocytes # (Manual) Eosinophils # (Manual) Basophils # (Manual) PT INR APTT ABG pH ABG pO2 ABG HCO3 ABG O2 Saturation ABG Base Excess ABG Hemoglobin Oxyhemoglobin Sodium Potassium Chloride Carbon Dioxide BUN Creatinine Glucose POC Glucose 142 H 138 H 118 H Lactic Acid Calcium Ionized Calcium Phosphorus Magnesium Total Bilirubin AST ALT Alkaline Phosphatase Ammonia Total Creatine Kinase CK-MB (CK-2) CK-MB (CK-2) Rel Index Total Protein Albumin Urine WBC (Auto) Vancomycin Trough Salicylates Acetaminophen Plasma/Serum Alcohol Crossmatch 02/24/20 02/24/20 02/25/20 11:41 18:33 18:24 WBC RBC Hgb Hct MCH RDW Plt Count Lymph % (Auto) [place] % (Auto) [place] # Baso # Seg Neutrophils % Seg Neuts % (Manual) Lymphocytes % (Manual) Monocytes % (Manual) Seg Neutrophils # Seg Neutrophils # Man Lymphocytes # (Manual) Monocytes # (Manual) Eosinophils # (Manual) Basophils # (Manual) PT INR APTT ABG pH ABG pO2 ABG HCO3 ABG O2 Saturation ABG Base Excess ABG Hemoglobin Oxyhemoglobin Sodium Potassium Chloride Carbon Dioxide BUN Creatinine Glucose POC Glucose 152 H 126 H 120 H Lactic Acid Calcium Ionized Calcium Phosphorus Magnesium Total Bilirubin AST ALT Alkaline Phosphatase Ammonia Total Creatine Kinase CK-MB (CK-2) CK-MB (CK-2) Rel Index Total Protein Albumin Urine WBC (Auto) Vancomycin Trough Salicylates Acetaminophen Plasma/Serum Alcohol Crossmatch 06/05/0802/26/20 02/26/20 23:40 05:46 11:32 WBC RBC Hgb Hct MCH RDW Plt Count Lymph % (Auto) [place] % (Auto) [place] # Baso # Seg Neutrophils % Seg Neuts % (Manual) Lymphocytes % (Manual) Monocytes % (Manual) Seg Neutrophils # Seg Neutrophils # Man Lymphocytes # (Manual) Monocytes # (Manual) Eosinophils # (Manual) Basophils # (Manual) PT INR APTT ABG pH ABG pO2 ABG HCO3 ABG O2 Saturation ABG Base Excess ABG Hemoglobin Oxyhemoglobin Sodium Potassium Chloride Carbon Dioxide BUN Creatinine Glucose POC Glucose 114 H 113 H 106 H Lactic Acid Calcium Ionized Calcium Phosphorus Magnesium Total Bilirubin AST ALT Alkaline Phosphatase Ammonia Total Creatine Kinase CK-MB (CK-2) CK-MB (CK-2) Rel Index Total Protein Albumin Urine WBC (Auto) Vancomycin Trough Salicylates Acetaminophen Plasma/Serum Alcohol Crossmatch 02/26/20 02/27/20 02/27/20 16:14 11:53 17:54 WBC RBC Hgb Hct MCH RDW Plt Count Lymph % (Auto) [place] % (Auto) [place] # Baso # Seg Neutrophils % Seg Neuts % (Manual) Lymphocytes % (Manual) Monocytes % (Manual) Seg Neutrophils # Seg Neutrophils # Man Lymphocytes # (Manual) Monocytes # (Manual) Eosinophils # (Manual) Basophils # (Manual) PT INR APTT ABG pH ABG pO2 ABG HCO3 ABG O2 Saturation ABG Base Excess ABG Hemoglobin Oxyhemoglobin Sodium Potassium Chloride Carbon Dioxide BUN Creatinine Glucose POC Glucose 123 H 134 H 119 H Lactic Acid Calcium Ionized Calcium Phosphorus Magnesium Total Bilirubin AST ALT Alkaline Phosphatase Ammonia Total Creatine Kinase CK-MB (CK-2) CK-MB (CK-2) Rel Index Total Protein Albumin Urine WBC (Auto) Vancomycin Trough Salicylates Acetaminophen Plasma/Serum Alcohol Crossmatch 02/27/20 02/28/20 02/28/20 23:51 03:40 03:40 WBC RBC 3.58 L Hgb Hct MCH RDW Plt Count 575 H Lymph % (Auto) [place] % (Auto) 9.4 H [place] # 1.0 H Baso # Seg Neutrophils % Seg Neuts % (Manual) Lymphocytes % (Manual) Monocytes % (Manual) Seg Neutrophils # Seg Neutrophils # Man Lymphocytes # (Manual) Monocytes # (Manual) Eosinophils # (Manual) Basophils # (Manual) PT INR APTT ABG pH ABG pO2 ABG HCO3 ABG O2 Saturation ABG Base Excess ABG Hemoglobin Oxyhemoglobin Sodium Potassium Chloride Carbon Dioxide BUN 23 H Creatinine 0.5 L Glucose 114 H POC Glucose 138 H Lactic Acid Calcium Ionized Calcium Phosphorus Magnesium Total Bilirubin AST ALT Alkaline Phosphatase Ammonia Total Creatine Kinase CK-MB (CK-2) CK-MB (CK-2) Rel Index Total Protein Albumin Urine WBC (Auto) Vancomycin Trough Salicylates Acetaminophen Plasma/Serum Alcohol Crossmatch 02/28/20 02/28/20 02/29/20 12:37 18:38 05:50 WBC RBC Hgb Hct MCH RDW Plt Count Lymph % (Auto) [place] % (Auto) [place] # Baso # Seg Neutrophils % Seg Neuts % (Manual) Lymphocytes % (Manual) Monocytes % (Manual) Seg Neutrophils # Seg Neutrophils # Man Lymphocytes # (Manual) Monocytes # (Manual) Eosinophils # (Manual) Basophils # (Manual) PT INR APTT ABG pH ABG pO2 ABG HCO3 ABG O2 Saturation ABG Base Excess ABG Hemoglobin Oxyhemoglobin Sodium Potassium Chloride Carbon Dioxide BUN Creatinine Glucose POC Glucose 115 H 120 H 114 H Lactic Acid Calcium Ionized Calcium Phosphorus Magnesium Total Bilirubin AST ALT Alkaline Phosphatase Ammonia Total Creatine Kinase CK-MB (CK-2) CK-MB (CK-2) Rel Index Total Protein Albumin Urine WBC (Auto) Vancomycin Trough Salicylates Acetaminophen Plasma/Serum Alcohol Crossmatch 02/29/20 02/29/20 03/01/20 18:53 23:10 06:53 WBC RBC Hgb Hct MCH RDW Plt Count Lymph % (Auto) [place] % (Auto) [place] # Baso # Seg Neutrophils % Seg Neuts % (Manual) Lymphocytes % (Manual) Monocytes % (Manual) Seg Neutrophils # Seg Neutrophils # Man Lymphocytes # (Manual) Monocytes # (Manual) Eosinophils # (Manual) Basophils # (Manual) PT INR APTT ABG pH ABG pO2 ABG HCO3 ABG O2 Saturation ABG Base Excess ABG Hemoglobin Oxyhemoglobin Sodium Potassium Chloride Carbon Dioxide BUN Creatinine Glucose POC Glucose 112 H 147 H 131 H Lactic Acid Calcium Ionized Calcium Phosphorus Magnesium Total Bilirubin AST ALT Alkaline Phosphatase Ammonia Total Creatine Kinase CK-MB (CK-2) CK-MB (CK-2) Rel Index Total Protein Albumin Urine WBC (Auto) Vancomycin Trough Salicylates Acetaminophen Plasma/Serum Alcohol Crossmatch 03/01/20 03/01/20 03/02/20 17:31 18:35 00:10 WBC RBC Hgb Hct MCH RDW Plt Count Lymph % (Auto) [place] % (Auto) [place] # Baso # Seg Neutrophils % Seg Neuts % (Manual) Lymphocytes % (Manual) Monocytes % (Manual) Seg Neutrophils # Seg Neutrophils # Man Lymphocytes # (Manual) Monocytes # (Manual) Eosinophils # (Manual) Basophils # (Manual) PT INR APTT ABG pH ABG pO2 ABG HCO3 ABG O2 Saturation ABG Base Excess ABG Hemoglobin Oxyhemoglobin Sodium Potassium Chloride Carbon Dioxide BUN Creatinine Glucose POC Glucose 61 L 129 H 117 H Lactic Acid Calcium Ionized Calcium Phosphorus Magnesium Total Bilirubin AST ALT Alkaline Phosphatase Ammonia Total Creatine Kinase CK-MB (CK-2) CK-MB (CK-2) Rel Index Total Protein Albumin Urine WBC (Auto) Vancomycin Trough Salicylates Acetaminophen Plasma/Serum Alcohol Crossmatch 03/02/20 03/02/20 03/02/20 06:56 12:02 18:42 WBC RBC Hgb Hct MCH RDW Plt Count Lymph % (Auto) [place] % (Auto) [place] # Baso # Seg Neutrophils % Seg Neuts % (Manual) Lymphocytes % (Manual) Monocytes % (Manual) Seg Neutrophils # Seg Neutrophils # Man Lymphocytes # (Manual) Monocytes # (Manual) Eosinophils # (Manual) Basophils # (Manual) PT INR APTT ABG pH ABG pO2 ABG HCO3 ABG O2 Saturation ABG Base Excess ABG Hemoglobin Oxyhemoglobin Sodium Potassium Chloride Carbon Dioxide BUN Creatinine Glucose POC Glucose 125 H 111 H 126 H Lactic Acid Calcium Ionized Calcium Phosphorus Magnesium Total Bilirubin AST ALT Alkaline Phosphatase Ammonia Total Creatine Kinase CK-MB (CK-2) CK-MB (CK-2) Rel Index Total Protein Albumin Urine WBC (Auto) Vancomycin Trough Salicylates Acetaminophen Plasma/Serum Alcohol Crossmatch 03/03/20 03/03/20 03/03/20 00:18 06:11 11:50 WBC RBC Hgb Hct MCH RDW Plt Count Lymph % (Auto) [place] % (Auto) [place] # Baso # Seg Neutrophils % Seg Neuts % (Manual) Lymphocytes % (Manual) Monocytes % (Manual) Seg Neutrophils # Seg Neutrophils # Man Lymphocytes # (Manual) Monocytes # (Manual) Eosinophils # (Manual) Basophils # (Manual) PT INR APTT ABG pH ABG pO2 ABG HCO3 ABG O2 Saturation ABG Base Excess ABG Hemoglobin Oxyhemoglobin Sodium Potassium Chloride Carbon Dioxide BUN Creatinine Glucose POC Glucose 139 H 155 H 118 H Lactic Acid Calcium Ionized Calcium Phosphorus Magnesium Total Bilirubin AST ALT Alkaline Phosphatase Ammonia Total Creatine Kinase CK-MB (CK-2) CK-MB (CK-2) Rel Index Total Protein Albumin Urine WBC (Auto) Vancomycin Trough Salicylates Acetaminophen Plasma/Serum Alcohol Crossmatch 03/03/20 03/03/20 03/04/20 18:09 23:46 05:37 WBC RBC Hgb Hct MCH RDW Plt Count Lymph % (Auto) [place] % (Auto) [place] # Baso # Seg Neutrophils % Seg Neuts % (Manual) Lymphocytes % (Manual) Monocytes % (Manual) Seg Neutrophils # Seg Neutrophils # Man Lymphocytes # (Manual) Monocytes # (Manual) Eosinophils # (Manual) Basophils # (Manual) PT INR APTT ABG pH ABG pO2 ABG HCO3 ABG O2 Saturation ABG Base Excess ABG Hemoglobin Oxyhemoglobin Sodium Potassium Chloride Carbon Dioxide BUN Creatinine Glucose POC Glucose 109 H 132 H 111 H Lactic Acid Calcium Ionized Calcium Phosphorus Magnesium Total Bilirubin AST ALT Alkaline Phosphatase Ammonia Total Creatine Kinase CK-MB (CK-2) CK-MB (CK-2) Rel Index Total Protein Albumin Urine WBC (Auto) Vancomycin Trough Salicylates Acetaminophen Plasma/Serum Alcohol Crossmatch 03/04/20 03/04/20 03/05/20 11:38 17:54 00:14 WBC RBC Hgb Hct MCH RDW Plt Count Lymph % (Auto) [place] % (Auto) [place] # Baso # Seg Neutrophils % Seg Neuts % (Manual) Lymphocytes % (Manual) Monocytes % (Manual) Seg Neutrophils # Seg Neutrophils # Man Lymphocytes # (Manual) Monocytes # (Manual) Eosinophils # (Manual) Basophils # (Manual) PT INR APTT ABG pH ABG pO2 ABG HCO3 ABG O2 Saturation ABG Base Excess ABG Hemoglobin Oxyhemoglobin Sodium Potassium Chloride Carbon Dioxide BUN Creatinine Glucose POC Glucose 138 H 118 H 134 H Lactic Acid Calcium Ionized Calcium Phosphorus Magnesium Total Bilirubin AST ALT Alkaline Phosphatase Ammonia Total Creatine Kinase CK-MB (CK-2) CK-MB (CK-2) Rel Index Total Protein Albumin Urine WBC (Auto) Vancomycin Trough Salicylates Acetaminophen Plasma/Serum Alcohol Crossmatch 03/06/20 03/06/20 03/06/20 03:37 03:37 06:29 WBC RBC Hgb Hct MCH RDW Plt Count 550 H Lymph % (Auto) [place] % (Auto) 9.1 H [place] # Baso # Seg Neutrophils % Seg Neuts % (Manual) Lymphocytes % (Manual) Monocytes % (Manual) Seg Neutrophils # Seg Neutrophils # Man Lymphocytes # (Manual) Monocytes # (Manual) Eosinophils # (Manual) Basophils # (Manual) PT INR APTT ABG pH ABG pO2 ABG HCO3 ABG O2 Saturation ABG Base Excess ABG Hemoglobin Oxyhemoglobin Sodium Potassium Chloride Carbon Dioxide BUN 26 H Creatinine 0.5 L Glucose POC Glucose 128 H Lactic Acid Calcium 10.4 H Ionized Calcium Phosphorus Magnesium Total Bilirubin AST ALT Alkaline Phosphatase Ammonia Total Creatine Kinase CK-MB (CK-2) CK-MB (CK-2) Rel Index Total Protein Albumin Urine WBC (Auto) Vancomycin Trough Salicylates Acetaminophen Plasma/Serum Alcohol Crossmatch 03/06/20 03/07/20 03/07/20 17:47 06:37 12:37 WBC RBC Hgb Hct MCH RDW Plt Count Lymph % (Auto) [place] % (Auto) [place] # Baso # Seg Neutrophils % Seg Neuts % (Manual) Lymphocytes % (Manual) Monocytes % (Manual) Seg Neutrophils # Seg Neutrophils # Man Lymphocytes # (Manual) Monocytes # (Manual) Eosinophils # (Manual) Basophils # (Manual) PT INR APTT ABG pH ABG pO2 ABG HCO3 ABG O2 Saturation ABG Base Excess ABG Hemoglobin Oxyhemoglobin Sodium Potassium Chloride Carbon Dioxide BUN Creatinine Glucose POC Glucose 120 H 113 H 118 H Lactic Acid Calcium Ionized Calcium Phosphorus Magnesium Total Bilirubin AST ALT Alkaline Phosphatase Ammonia Total Creatine Kinase CK-MB (CK-2) CK-MB (CK-2) Rel Index Total Protein Albumin Urine WBC (Auto) Vancomycin Trough Salicylates Acetaminophen Plasma/Serum Alcohol Crossmatch 03/07/20 03/08/20 03/08/20 16:41 00:55 06:25 WBC RBC Hgb Hct MCH RDW Plt Count Lymph % (Auto) [place] % (Auto) [place] # Baso # Seg Neutrophils % Seg Neuts % (Manual) Lymphocytes % (Manual) Monocytes % (Manual) Seg Neutrophils # Seg Neutrophils # Man Lymphocytes # (Manual) Monocytes # (Manual) Eosinophils # (Manual) Basophils # (Manual) PT INR APTT ABG pH ABG pO2 ABG HCO3 ABG O2 Saturation ABG Base Excess ABG Hemoglobin Oxyhemoglobin Sodium Potassium Chloride Carbon Dioxide BUN Creatinine Glucose POC Glucose 108 H 139 H 127 H Lactic Acid Calcium Ionized Calcium Phosphorus Magnesium Total Bilirubin AST ALT Alkaline Phosphatase Ammonia Total Creatine Kinase CK-MB (CK-2) CK-MB (CK-2) Rel Index Total Protein Albumin Urine WBC (Auto) Vancomycin Trough Salicylates Acetaminophen Plasma/Serum Alcohol Crossmatch 03/08/20 03/08/20 03/08/20 12:49 13:25 17:13 WBC RBC Hgb Hct MCH RDW Plt Count Lymph % (Auto) [place] % (Auto) [place] # Baso # Seg Neutrophils % Seg Neuts % (Manual) Lymphocytes % (Manual) Monocytes % (Manual) Seg Neutrophils # Seg Neutrophils # Man Lymphocytes # (Manual) Monocytes # (Manual) Eosinophils # (Manual) Basophils # (Manual) PT INR APTT ABG pH ABG pO2 71.1 L ABG HCO3 26.2 H ABG O2 Saturation ABG Base Excess ABG Hemoglobin 8.2 L Oxyhemoglobin 94.8 L Sodium Potassium Chloride Carbon Dioxide BUN Creatinine Glucose POC Glucose 127 H 147 H Lactic Acid Calcium Ionized Calcium Phosphorus Magnesium Total Bilirubin AST ALT Alkaline Phosphatase Ammonia Total Creatine Kinase CK-MB (CK-2) CK-MB (CK-2) Rel Index Total Protein Albumin Urine WBC (Auto) Vancomycin Trough Salicylates Acetaminophen Plasma/Serum Alcohol Crossmatch 03/09/20 03/09/20 03/09/20 06:28 08:36 23:58 WBC RBC Hgb Hct MCH RDW Plt Count Lymph % (Auto) [place] % (Auto) [place] # Baso # Seg Neutrophils % Seg Neuts % (Manual) Lymphocytes % (Manual) Monocytes % (Manual) Seg Neutrophils # Seg Neutrophils # Man Lymphocytes # (Manual) Monocytes # (Manual) Eosinophils # (Manual) Basophils # (Manual) PT INR APTT ABG pH ABG pO2 ABG HCO3 ABG O2 Saturation ABG Base Excess ABG Hemoglobin Oxyhemoglobin Sodium Potassium Chloride Carbon Dioxide BUN Creatinine Glucose POC Glucose 139 H 167 H 122 H Lactic Acid Calcium Ionized Calcium Phosphorus Magnesium Total Bilirubin AST ALT Alkaline Phosphatase Ammonia Total Creatine Kinase CK-MB (CK-2) CK-MB (CK-2) Rel Index Total Protein Albumin Urine WBC (Auto) Vancomycin Trough Salicylates Acetaminophen Plasma/Serum Alcohol Crossmatch 03/10/20 03/10/20 03/11/20 06:32 23:27 06:23 WBC RBC Hgb Hct MCH RDW Plt Count Lymph % (Auto) [place] % (Auto) [place] # Baso # Seg Neutrophils % Seg Neuts % (Manual) Lymphocytes % (Manual) Monocytes % (Manual) Seg Neutrophils # Seg Neutrophils # Man Lymphocytes # (Manual) Monocytes # (Manual) Eosinophils # (Manual) Basophils # (Manual) PT INR APTT ABG pH ABG pO2 ABG HCO3 ABG O2 Saturation ABG Base Excess ABG Hemoglobin Oxyhemoglobin Sodium Potassium Chloride Carbon Dioxide BUN Creatinine Glucose POC Glucose 165 H 115 H 139 H Lactic Acid Calcium Ionized Calcium Phosphorus Magnesium Total Bilirubin AST ALT Alkaline Phosphatase Ammonia Total Creatine Kinase CK-MB (CK-2) CK-MB (CK-2) Rel Index Total Protein Albumin Urine WBC (Auto) Vancomycin Trough Salicylates Acetaminophen Plasma/Serum Alcohol Crossmatch 03/11/20 03/11/20 03/12/20 12:29 18:02 04:53 WBC RBC Hgb Hct MCH RDW Plt Count 625 H Lymph % (Auto) [place] % (Auto) [place] # Baso # Seg Neutrophils % Seg Neuts % (Manual) Lymphocytes % (Manual) Monocytes % (Manual) Seg Neutrophils # Seg Neutrophils # Man Lymphocytes # (Manual) Monocytes # (Manual) Eosinophils # (Manual) Basophils # (Manual) PT INR APTT ABG pH ABG pO2 ABG HCO3 ABG O2 Saturation ABG Base Excess ABG Hemoglobin Oxyhemoglobin Sodium Potassium Chloride Carbon Dioxide BUN Creatinine Glucose POC Glucose 164 H 113 H Lactic Acid Calcium Ionized Calcium Phosphorus Magnesium Total Bilirubin AST ALT Alkaline Phosphatase Ammonia Total Creatine Kinase CK-MB (CK-2) CK-MB (CK-2) Rel Index Total Protein Albumin Urine WBC (Auto) Vancomycin Trough Salicylates Acetaminophen Plasma/Serum Alcohol Crossmatch 03/12/20 03/12/20 03/12/20 04:53 06:26 12:38 WBC RBC Hgb Hct MCH RDW Plt Count Lymph % (Auto) [place] % (Auto) [place] # Baso # Seg Neutrophils % Seg Neuts % (Manual) Lymphocytes % (Manual) Monocytes % (Manual) Seg Neutrophils # Seg Neutrophils # Man Lymphocytes # (Manual) Monocytes # (Manual) Eosinophils # (Manual) Basophils # (Manual) PT INR APTT ABG pH ABG pO2 ABG HCO3 ABG O2 Saturation ABG Base Excess ABG Hemoglobin Oxyhemoglobin Sodium Potassium 5.3 H Chloride Carbon Dioxide BUN 34 H Creatinine Glucose 159 H POC Glucose 149 H 130 H Lactic Acid Calcium 10.7 H Ionized Calcium Phosphorus Magnesium Total Bilirubin AST ALT Alkaline Phosphatase Ammonia Total Creatine Kinase CK-MB (CK-2) CK-MB (CK-2) Rel Index Total Protein Albumin Urine WBC (Auto) Vancomycin Trough Salicylates Acetaminophen Plasma/Serum Alcohol Crossmatch 03/13/20 03/13/20 03/13/20 03:50 06:12 18:11 WBC RBC Hgb Hct MCH RDW Plt Count Lymph % (Auto) [place] % (Auto) [place] # Baso # Seg Neutrophils % Seg Neuts % (Manual) Lymphocytes % (Manual) Monocytes % (Manual) Seg Neutrophils # Seg Neutrophils # Man Lymphocytes # (Manual) Monocytes # (Manual) Eosinophils # (Manual) Basophils # (Manual) PT INR APTT ABG pH ABG pO2 ABG HCO3 ABG O2 Saturation ABG Base Excess ABG Hemoglobin Oxyhemoglobin Sodium Potassium Chloride Carbon Dioxide 20 L BUN 30 H Creatinine 0.6 L Glucose 153 H POC Glucose 124 H 111 H Lactic Acid Calcium Ionized Calcium Phosphorus Magnesium Total Bilirubin AST ALT Alkaline Phosphatase Ammonia Total Creatine Kinase CK-MB (CK-2) CK-MB (CK-2) Rel Index Total Protein Albumin Urine WBC (Auto) Vancomycin Trough Salicylates Acetaminophen Plasma/Serum Alcohol Crossmatch 03/14/20 03/14/20 03/15/20 12:01 15:40 00:02 WBC RBC Hgb Hct MCH RDW Plt Count Lymph % (Auto) [place] % (Auto) [place] # Baso # Seg Neutrophils % Seg Neuts % (Manual) Lymphocytes % (Manual) Monocytes % (Manual) Seg Neutrophils # Seg Neutrophils # Man Lymphocytes # (Manual) Monocytes # (Manual) Eosinophils # (Manual) Basophils # (Manual) PT INR APTT ABG pH ABG pO2 ABG HCO3 ABG O2 Saturation ABG Base Excess ABG Hemoglobin Oxyhemoglobin Sodium Potassium Chloride Carbon Dioxide BUN Creatinine Glucose POC Glucose 116 H 125 H 143 H Lactic Acid Calcium Ionized Calcium Phosphorus Magnesium Total Bilirubin AST ALT Alkaline Phosphatase Ammonia Total Creatine Kinase CK-MB (CK-2) CK-MB (CK-2) Rel Index Total Protein Albumin Urine WBC (Auto) Vancomycin Trough Salicylates Acetaminophen Plasma/Serum Alcohol Crossmatch 03/15/20 03/15/20 03/16/20 12:03 18:14 12:14 WBC RBC Hgb Hct MCH RDW Plt Count Lymph % (Auto) [place] % (Auto) [place] # Baso # Seg Neutrophils % Seg Neuts % (Manual) Lymphocytes % (Manual) Monocytes % (Manual) Seg Neutrophils # Seg Neutrophils # Man Lymphocytes # (Manual) Monocytes # (Manual) Eosinophils # (Manual) Basophils # (Manual) PT INR APTT ABG pH ABG pO2 ABG HCO3 ABG O2 Saturation ABG Base Excess ABG Hemoglobin Oxyhemoglobin Sodium Potassium Chloride Carbon Dioxide BUN Creatinine Glucose POC Glucose 106 H 107 H 107 H Lactic Acid Calcium Ionized Calcium Phosphorus Magnesium Total Bilirubin AST ALT Alkaline Phosphatase Ammonia Total Creatine Kinase CK-MB (CK-2) CK-MB (CK-2) Rel Index Total Protein Albumin Urine WBC (Auto) Vancomycin Trough Salicylates Acetaminophen Plasma/Serum Alcohol Crossmatch 03/16/20 03/17/20 03/17/20 18:30 05:44 12:09 WBC RBC Hgb Hct MCH RDW Plt Count Lymph % (Auto) [place] % (Auto) [place] # Baso # Seg Neutrophils % Seg Neuts % (Manual) Lymphocytes % (Manual) Monocytes % (Manual) Seg Neutrophils # Seg Neutrophils # Man Lymphocytes # (Manual) Monocytes # (Manual) Eosinophils # (Manual) Basophils # (Manual) PT INR APTT ABG pH ABG pO2 ABG HCO3 ABG O2 Saturation ABG Base Excess ABG Hemoglobin Oxyhemoglobin Sodium Potassium Chloride Carbon Dioxide BUN Creatinine Glucose POC Glucose 128 H 114 H 120 H Lactic Acid Calcium Ionized Calcium Phosphorus Magnesium Total Bilirubin AST ALT Alkaline Phosphatase Ammonia Total Creatine Kinase CK-MB (CK-2) CK-MB (CK-2) Rel Index Total Protein Albumin Urine WBC (Auto) Vancomycin Trough Salicylates Acetaminophen Plasma/Serum Alcohol Crossmatch Chest x-ray: report reviewed (03/12/20 reported no acute findings.), image reviewed Allied health notes reviewed: RT
[2020-03-17] MEDS: ENOXAPARIN 40 MG/0.4 ML INJ SUB-Q SCH (22:17)
[2020-03-17] MEDS: ACETAMINOPHEN 325 MG/10.15 ML ORAL LIQD UNIT DOSE FEEDTUBE PRN (22:19)
[2020-03-18] MEDS: LEVALBUTEROL 0.63 MG/3 ML NEBU IH SCH ×3 (01:54→13:59)
[2020-03-18] MEDS: GLYCOPYRROLATE 1 MG TAB PO SCH ×3 (08:00→21:31)
[2020-03-18] MEDS: ACETYLCYSTEINE 20% 200 MG/1 ML *FOR INHALATION USE INHALATION SCH ×2 (08:27→22:49)
[2020-03-18] MEDS: hydrOXYzine PAMOATE 25 MG CAP PO SCH ×2 (09:10→21:30)
[2020-03-18] MEDS: NICOTINE 21 MG/24 HR PATCH TD SCH (09:11)
[2020-03-18] MEDS: DOCUSATE SODIUM 100 MG/10 ML ORAL LIQD FEEDTUBE SCH ×2 (09:11→21:31)
[2020-03-18] MEDS: QUEtiapine 100 MG TAB FEEDTUBE SCH ×2 (09:11→21:31)
[2020-03-18] MEDS: levETIRAcetam 500 MG/5 ML ORAL LIQD PO SCH ×2 (09:11→21:31)
[2020-03-18] MEDS: METOPROLOL TARTRATE 25 MG TAB PO SCH ×2 (09:11→21:30)
[2020-03-18] MEDS: MIRTAZAPINE 30 MG TAB PO SCH (09:12)
[2020-03-18] MEDS: LANSOPRAZOLE 30 MG SOLUTAB FEEDTUBE SCH (09:12)
[2020-03-18] MEDS: SERTRALINE 50 MG TAB PO SCH (09:12)
[2020-03-18] MEDS: SCOPOLAMINE TRANSDERMAL PATCH 72 HR TD SCH (09:12)
--- NOTE | 2020-03-18 10:12 | Event Note ---
Date: 03/18/20 Discussed with RT, tolerating trach capping trials. 24 hours without need for suctioning. Plan to decannulate today
--- NOTE | 2020-03-18 14:59 | Progress Note ---
Assessment and Plan Assessment and plan: 54-year-old female with a past medical history of Hypertension, Depression, Tobacco use Disorder, Alcohol use Disorder as confirmed by Daughter and pt's mother presents to the hospital status post cardiac arrest at home. EMS found pt in [facility]. They were unable to intubate patient with a ET tube because she was clenching down therefore Joe airway placed. Per the ED physician who evaluated pt, Patient presented with a pulse, intermittent respirations, and bagging support via Joe airway with O2 sat of 100%. Accu-Chek of 71 obtained by EMS. She was intubated in the ER and called for admission. Following admission patient was diagnosed with anoxic brain injury, sepsis with MRSA bacteremia and MSSA pneumonia, alcoholic liver disease. Family member initially wished for full code then changed to DNR, patient treated with IV antibiotics for sepsis, status post trach and PEG on 12/13/19. Weaned off from the vent and put on T- piece. Patient is uninsured, waiting for placement, guarded prognosis. 03/07: Returning to service no acute changes are noted. Continue current management while awaiting placement. Intermittent labs. Base of neck also around tracheostomy tube preventing downgrading. Continue appropriate wound care. 03/08: Plan of care unchanged continues on aerosol trach collar 28% of oxygen. Continue wound care management placement still pending status decision. 03/09: Continue current treatment plan. Continue aspiration precaution 03/10: Continue current management, Restraints as patient still pulling, awaiting placement 03/11: Continue supportive care, intermittent suctioning and pulmonary toilet. awaiting placement. 03/12: Continue supportive care, Give a bolus of fluids due to Hypercalcemia, Monitor Hyperkalemia with labs in am, No arrhythmia. Patient vomiting, concern for aspiration, Chest xray ordered and no active disease noted. Keep HOB >45% 03/13: No evidence of aspiration on xray. Continue supportive care. 03/14: Continue supportive care. Capping trials to start. Discussed with patients nursing and case management to continue daily PT by the Rehab team. 03/15: Discussed again with staff to start capping trial. 03/16: Do not see any indication the capping trial has started will discuss with respiratory therapist. Continue restraints. Still awaiting family decision patient has had some remarkable improvement considering the fact that she was able to stay around night without restraints. We will continue daily trial of this method. Discussed plan with nursing staff 03/17: Continue current care. Currently continue restraints. Continue current management. Continue physical therapy daily. 03/18: Capping trial successful and will possibly get decannulated today. Continue placement. / Anoxic brain injury: suspected CT head: No acute abnormality. EEG ordered showed Generalized slowing. No seizures or epileptiform activity. -Patient now opening her eyes, can speak and able to follow command -As needed haldol for agitation /Acute Respiratory failure -due to MSSA PNA -s/p intubation, s/p trach and PEG on 12/12 with mechanical ventilation, now on T-piece - CTA was done and negative for PE, - Echo quality is poor, showed diastolic dysfunction - continue weaning as tolerated -Continue appropriate and adequate tracheostomy care /Tracheostomy site ulceration -Continue appropriate wound management try to keep area dry. /Anemia, microcytic - Status post 3 units PRBC transfusion, H&H low stable /Acute metabolic encephalopathy/toxic encephalopathy due to the above - cont supportive care /Hyperammonemia - likely from liver disease related to EtOH abuse - Patient had elevated ammonia level and treated with lactulose /Metabolic Acidosis -Alcohol ketoacidosis vs hypoprofusion -Continue to monitor /ELevated LFTs, stable now - due to ischemic hepatitis. /Leucocytosis with sepsis - Source MRSA bacteremia and MSSA pneumonia. UA showed pyuria. RUQ US showed no ascites. - Repeat TTE negative for vegetation. Completed 7 days of Ceftriaxone on 11/29/2019. -Treated with Abx vancomycin 1 gm IV q 12 hour total 2 week till 12/30/2019 /Severe protein calorie malnutrition Dietitian consult to assist in management. /MSSA pneumonia: Status post vancomycin till 12/30/2019 /Alcohol use Disorder - given ongoing Alcohol use almost daily, s/p IV Thiamine - monitor /Severe hypokalemia -Repleted /Seizure disorder: treat with Keppra /H. Influenzae, tracheobronchitis, treated with abx /Moderate to severe fecal impaction - will add stool softner DNR CODE STATUS Disposition: prognosis guarded. Family okay for DNR, PT recommended subacute rehab, discharge pending on placement. Negative for COVID 19 History Interval history: Patient seen and examined, this morning patient tolerating capping trials. Actually speaking asking who it is. . Hospitalist Physical - Physical exam Narrative exam: General appearance: Present: Appears older than stated age - EENT Eyes: no scleral icterus, no conjunctival injection, pupil not reactive ENT: clear oral mucosa, dentition normal, no oropharyngeal erythema Ears: bilateral: normal - Neck Neck: trach on place with mild ulceration at the base. - Respiratory Respiratory effort: other (on T-piece) trach capped. Respiratory: bilateral: rales - Cardiovascular Rhythm: regular Heart Sounds: Present: S1 & S2. Absent: gallop, rub Extremities: pulses intact, No edema, normal color - Gastrointestinal General gastrointestinal: Present: soft, non-tender, non-distended, normal bowel sounds - Integumentary Integumentary: clear, warm, dry - Musculoskeletal Musculoskeletal: No joint swelling or tenderness - Neurologic Neurologic: other (2+ reflexes throughout). respond to commend and nods head. generalized weakness, verbal - Psychiatric Psychiatric: co-operative - Constitutional Vitals: Temp Pulse Resp BP Pulse Ox 97.1 F L 92 H 18 115/80 97 03/18/20 11:36 03/18/20 14:04 03/18/20 14:04 03/18/20 11:36 03/18/20 11:52 General appearance: Present: mild distress, cachectic, disheveled, other (Noncommunicative) HEART Score - HEART Score Troponin: Troponin T < 0.010 ng/mL (0.00-0.029) 11/22/19 23:27 Results - Labs CBC & Chem 7: 03/12/20 04:53 03/13/20 03:50 Labs: Laboratory Last Values WBC 9.1 K/mm3 (4.5-11.0) 03/12/20 04:53 RBC 3.90 M/mm3 (3.65-5.03) 03/12/20 04:53 Hgb 11.5 gm/dl (10.1-14.3) 03/12/20 04:53 Hct 34.2 % (30.3-42.9) 03/12/20 04:53 MCV 88 fl (79-97) 03/12/20 04:53 MCH 29 pg (28-32) 03/12/20 04:53 MCHC 34 % (30-34) 03/12/20 04:53 RDW 14.4 % (13.2-15.2) 03/12/20 04:53 Plt Count 625 K/mm3 (140-440) H 03/12/20 04:53 Lymph % (Auto) 27.8 % (13.4-35.0) 03/06/20 03:37 [place] % (Auto) 9.1 % (0.0-7.3) H 03/06/20 03:37 Eos % (Auto) 2.8 % (0.0-4.3) 03/06/20 03:37 Baso % (Auto) 0.7 % (0.0-1.8) 03/06/20 03:37 Lymph # 2.2 K/mm3 (1.2-5.4) 03/06/20 03:37 [place] # 0.7 K/mm3 (0.0-0.8) 03/06/20 03:37 Eos # 0.2 K/mm3 (0.0-0.4) 03/06/20 03:37 Baso # 0.1 K/mm3 (0.0-0.1) 03/06/20 03:37 Add Manual Diff Complete 12/25/19 03:47 Total Counted 200 12/25/19 03:47 Seg Neutrophils % 59.6 % (40.0-70.0) 03/06/20 03:37 Seg Neuts % (Manual) 97.5 % (40.0-70.0) H 12/25/19 03:47 Band Neutrophils % 0 % 12/25/19 03:47 Lymphocytes % (Manual) 1.0 % (13.4-35.0) L 12/25/19 03:47 Reactive Lymphs % (Man) 0 % 12/25/19 03:47 Monocytes % (Manual) 1.5 % (0.0-7.3) 12/25/19 03:47 Eosinophils % (Manual) 0 % (0.0-4.3) 12/25/19 03:47 Basophils % (Manual) 0 % (0.0-1.8) 12/25/19 03:47 Metamyelocytes % 0 % 12/25/19 03:47 Myelocytes % 0 % 12/25/19 03:47 Promyelocytes % 0 % 12/25/19 03:47 Blast Cells % 0 % 12/25/19 03:47 Nucleated RBC % Not Reportable 12/25/19 03:47 Seg Neutrophils # 4.8 K/mm3 (1.8-7.7) 03/06/20 03:37 Seg Neutrophils # Man 35.3 K/mm3 (1.8-7.7) H 12/25/19 03:47 Band Neutrophils # 0.0 K/mm3 12/25/19 03:47 Lymphocytes # (Manual) 0.4 K/mm3 (1.2-5.4) L 12/25/19 03:47 Abs React Lymphs (Man) 0.0 K/mm3 12/25/19 03:47 Monocytes # (Manual) 0.5 K/mm3 (0.0-0.8) 12/25/19 03:47 Eosinophils # (Manual) 0.0 K/mm3 (0.0-0.4) 12/25/19 03:47 Basophils # (Manual) 0.0 K/mm3 (0.0-0.1) 12/25/19 03:47 Metamyelocytes # 0.0 K/mm3 12/25/19 03:47 Myelocytes # 0.0 K/mm3 12/25/19 03:47 Promyelocytes # 0.0 K/mm3 12/25/19 03:47 Blast Cells # 0.0 K/mm3 12/25/19 03:47 Pathologist Review 12/13/19 07:48 WBC Morphology Not Reportable 12/25/19 03:47 Hypersegmented Neuts Not Reportable 12/25/19 03:47 Hyposegmented Neuts Not Reportable 12/25/19 03:47 Hypogranular Neuts Not Reportable 12/25/19 03:47 Smudge Cells Not Reportable 12/25/19 03:47 Toxic Granulation Not Reportable 12/25/19 03:47 Toxic Vacuolation Not Reportable 12/25/19 03:47 Dohle Bodies Not Reportable 12/25/19 03:47 Pelger-Huet Anomaly Not Reportable 12/25/19 03:47 Dominique Rods Not Reportable 12/25/19 03:47 Platelet Estimate Consistent w auto 12/25/19 03:47 Clumped Platelets Not Reportable 12/25/19 03:47 Plt Clumps, EDTA Not Reportable 12/25/19 03:47 Large Platelets Not Reportable 12/25/19 03:47 Giant Platelets Not Reportable 12/25/19 03:47 Platelet Satelliting Not Reportable 12/25/19 03:47 Plt Morphology Comment Not Reportable 12/25/19 03:47 RBC Morphology Not Reportable 12/25/19 03:47 Dimorphic RBCs Not Reportable 12/25/19 03:47 Polychromasia Not Reportable 12/25/19 03:47 Hypochromasia Not Reportable 12/25/19 03:47 Poikilocytosis Not Reportable 12/25/19 03:47 Anisocytosis 1+ 12/25/19 03:47 Microcytosis Not Reportable 12/25/19 03:47 Macrocytosis Not Reportable 12/25/19 03:47 Spherocytes Not Reportable 12/25/19 03:47 Pappenheimer Bodies Not Reportable 12/25/19 03:47 Sickle Cells Not Reportable 12/25/19 03:47 Target Cells Not Reportable 12/25/19 03:47 Tear Drop Cells Not Reportable 12/25/19 03:47 Ovalocytes Not Reportable 12/25/19 03:47 Helmet Cells Not Reportable 12/25/19 03:47 [place] Bodies Not Reportable 12/25/19 03:47 [place] Rings Not Reportable 12/25/19 03:47 Jamshid Cells Not Reportable 12/25/19 03:47 Bite Cells Not Reportable 12/25/19 03:47 Crenated Cell Not Reportable 12/25/19 03:47 Elliptocytes Not Reportable 12/25/19 03:47 Acanthocytes (Spur) Not Reportable 12/25/19 03:47 Rouleaux Not Reportable 12/25/19 03:47 Hemoglobin C Crystals Not Reportable 12/25/19 03:47 Schistocytes Not Reportable 12/25/19 03:47 Malaria parasites Not Reportable 12/25/19 03:47 Gregg Bodies Not Reportable 12/25/19 03:47 Hem Pathologist Commnt No 12/25/19 03:47 PT 17.0 Sec. (12.2-14.9) H 11/23/19 03:47 INR 1.36 (0.87-1.13) H 11/23/19 03:47 APTT 128.2 Sec. (24.2-36.6) H* 11/23/19 03:47 Heparin Anti-Xa Level 0.31 U.I./ml (0.3-0.7) 11/23/19 09:03 ABG pH 7.433 pH Units (7.350-7.450) 03/08/20 13:25 ABG pCO2 40.2 mm Hg 03/08/20 13:25 ABG pO2 71.1 mm Hg (80.0-90.0) L 03/08/20 13:25 ABG HCO3 26.2 mmol/L (20.0-26.0) H 03/08/20 13:25 ABG O2 Saturation 97.0 % (95.0-99.0) 03/08/20 13:25 ABG O2 Content 11.0 (0.0-44) 03/08/20 13:25 ABG Base Excess 1.8 mmol/L (-2.0-3.0) 03/08/20 13:25 ABG Hemoglobin 8.2 gm/dl (12.0-16.0) L 03/08/20 13:25 ABG Carboxyhemoglobin 1.7 % (0.0-5.0) 03/08/20 13:25 ABG Methemoglobin 0.5 % (0.0-1.5) 03/08/20 13:25 Oxyhemoglobin 94.8 % (95.0-99.0) L 03/08/20 13:25 FiO2 21 % 03/08/20 13:25 Sodium 137 mmol/L (137-145) 03/13/20 03:50 Potassium 3.8 mmol/L (3.6-5.0) D 03/13/20 03:50 Chloride 103.1 mmol/L (98-107) 03/13/20 03:50 Carbon Dioxide 20 mmol/L (22-30) L 03/13/20 03:50 Anion Gap 18 mmol/L 03/13/20 03:50 BUN 30 mg/dL (7-17) H 03/13/20 03:50 Creatinine 0.6 mg/dL (0.7-1.2) L 03/13/20 03:50 Estimated GFR > 60 ml/min 03/13/20 03:50 BUN/Creatinine Ratio 50 % 03/13/20 03:50 Glucose 153 mg/dL (65-100) H 03/13/20 03:50 POC Glucose 98 (70-105) 03/18/20 11:46 Lactic Acid 1.80 mmol/L (0.7-2.0) 11/25/19 05:05 Calcium 10.0 mg/dL (8.4-10.2) 03/13/20 03:50 Ionized Calcium 4.5 mg/dL (4.8-5.6) L 11/23/19 06:32 Phosphorus 4.20 mg/dL (2.5-4.5) D 11/28/19 08:59 Magnesium 1.90 mg/dL (1.7-2.3) 02/28/20 03:40 Total Bilirubin 0.40 mg/dL (0.1-1.2) 12/13/19 07:48 AST 27 units/L (5-40) 12/13/19 07:48 ALT 26 units/L (7-56) 12/13/19 07:48 Alkaline Phosphatase 316 units/L (35-129) H 12/13/19 07:48 Ammonia 42.0 umol/L (25-60) 11/29/19 13:41 Total Creatine Kinase 139 units/L (30-135) H 11/22/19 23:27 CK-MB (CK-2) 8.3 ng/mL (0.0-4.0) H 11/22/19 23:27 CK-MB (CK-2) Rel Index 5.9 (0-4) H 11/22/19 23:27 Troponin T < 0.010 ng/mL (0.00-0.029) 11/22/19 23:27 Total Protein 6.8 g/dL (6.3-8.2) 12/13/19 07:48 Albumin 2.4 g/dL (3.9-5) L 12/13/19 07:48 Albumin/Globulin Ratio 0.5 % 12/13/19 07:48 Lipase 18 units/L (13-60) 11/23/19 00:34 Procalcitonin 1.09 ng/mL (<0.15) 11/23/19 04:53 TSH 1.010 mlU/mL (0.270-4.200) 02/12/20 07:36 Free T4 1.08 ng/dL (0.76-1.46) 02/12/20 07:36 Urine Color Yellow (Yellow) 12/16/19 Unknown Urine Turbidity Slightly-cloudy (Clear) 12/16/19 Unknown Urine pH 5.0 (5.0-7.0) 12/16/19 Unknown Ur Specific [place] 1.018 (1.003-1.030) 12/16/19 Unknown Urine Protein 30 mg/dl mg/dL (Negative) 12/16/19 Unknown Urine Glucose (UA) Neg mg/dL (Negative) 12/16/19 Unknown Urine Ketones Neg mg/dL (Negative) 12/16/19 Unknown Urine Blood Sm (Negative) 12/16/19 Unknown Urine Nitrite Neg (Negative) 12/16/19 Unknown Urine Bilirubin Neg (Negative) 12/16/19 Unknown Urine Urobilinogen < 2.0 mg/dL (<2.0) 12/16/19 Unknown Ur Leukocyte Esterase Neg (Negative) 12/16/19 Unknown Urine WBC (Auto) 6.0 /HPF (0.0-6.0) 12/16/19 Unknown Urine RBC (Auto) 9.0 /HPF (0.0-6.0) 12/16/19 Unknown U Epithel Cells (Auto) < 1.0 /HPF (0-13.0) 12/16/19 Unknown Urine Bacteria (Auto) 2+ /HPF (Negative) 11/22/19 23:17 Hyaline Casts 3 /LPF 12/16/19 Unknown Granular Casts 3 /LPF 12/16/19 Unknown Urine Mucus Few /HPF 12/16/19 Unknown Vancomycin Trough 33.8 ug/mL (5.0-20.0) H 12/21/19 08:56 Random Vancomycin 16.2 ug/mL (0-40.0) 12/24/19 04:31 Salicylates < 0.3 mg/dL (2.8-20.0) L 11/22/19 23:27 Urine Opiates Screen Presumptive negative 11/22/19 23:17 Urine Methadone Screen Presumptive negative 11/22/19 23:17 Acetaminophen < 5.0 ug/mL (10.0-30.0) L 11/22/19 23:27 Ur Barbiturates Screen Presumptive negative 11/22/19 23:17 Ur Phencyclidine Scrn Presumptive negative 11/22/19 23:17 Ur Amphetamines Screen Presumptive negative 11/22/19 23:17 U Benzodiazepines Scrn Presumptive negative 11/22/19 23:17 Urine Cocaine Screen Presumptive negative 11/22/19 23:17 U Marijuana (THC) Screen Presumptive negative 11/22/19 23:17 Drugs of Abuse Note Disclamer 11/22/19 23:17 Plasma/Serum Alcohol 0.08 % (0-0.07) H 11/22/19 23:27 Coronavirus (PCR) Negative (Negative) 02/05/20 07:50 Hepatitis A IgM Ab Non-reactive (NonReactive) 11/23/19 01:19 Hep Bs Antigen Non-reactive (Negative) 11/23/19 01:19 Hep B Core IgM Ab Non-reactive (NonReactive) 11/23/19 01:19 Hepatitis C Antibody Non-reactive (NonReactive) 11/23/19 01:19 Blood Type O POSITIVE 12/21/19 14:54 Antibody Screen Negative 12/21/19 14:54 Crossmatch See Detail 12/21/19 14:54 - Diagnostic Impressions Diagnostic Impressions: Echocardiogram 11/23/19 03:58 Transthoracic Echocardiogram Indication: Cardiac arrest BP: 131/89 HR: 115 Conclusions *The study quality is technically difficult. *Global left ventricular wall motion and contractility are within normal limits. *The estimated ejection fraction is 55-60%. *Abnormal left ventricular diastolic filling is observed, consistent with impaired relaxation. *There is no pericardial effusion. Findings Procedure Info: The study quality is technically difficult. The study was technically limited due to the patient's inability to lay in the left lateral decubitus position. Left Ventricle: The left ventricular chamber size is normal. There is no left ventricular hypertrophy. Global left ventricular wall motion and contractility are within normal limits. Global left ventricular systolic function is normal. The estimated ejection fraction is 55-60%. Abnormal left ventricular diastolic filling is observed, consistent with impaired relaxation. Left Atrium: The left atrial chamber size is normal. Aortic Valve: The aortic valve leaflets are mildly thickened. Mitral Valve: The mitral valve leaflets are mildly thickened. There is no evidence of mitral regurgitation. Tricuspid Valve: The tricuspid valve leaflets are normal. There is trace tricuspid regurgitation. The right ventricular systolic pressure is calculated at 33 mmHg. Pulmonic Valve: The pulmonic valve appears normal. Pericardium: The pericardium appears normal. There is no pericardial effusion. Aorta: The aorta appears normal. Venous: The inferior vena cava appears normal in size. Measurements Chambers 2D Name Value Normal Range IVSd (2D) 0.94 cm (0.6 - 1.1) LVPWd (2D) 0.81 cm (0.6 - 1.1) LVIDd (2D) 3.6 cm (3.7 - 5.6) LVIDs (2D) 2.27 cm (2 - 3.8) LV FS (2D) 36.93 % - EF Teichholz (2D) 67.76 % - Ao root diameter (2D) 3.03 cm (2 - 3.7) Volumes/Mass Name Value Normal Range LA ESV SP 4CH (A/L) 16.89 ml - LA ESV SP 4CH (MOD) 15.52 ml - Diastolic/Systolic Function Name Value Normal Range MV E-wave Vmax 0.55 m/sec - MV deceleration time 200.89 msec - MV A-wave Vmax 0.68 m/sec - MV E:A ratio 0.82 ratio - Aortic Valve Name Value Normal Range AV Vmax 1.1 m/sec - AV VTI 15.9 cm - AV peak gradient 4.86 mmHg - AV mean gradient 2.59 mmHg - LVOT diameter 2 cm - LVOT Vmax 1.03 m/sec - LVOT VTI 15.87 cm - LVOT peak gradient 4.24 mmHg - LVOT mean gradient 2.41 mmHg - SV LVOT 49.77 ml - JOSÉ MIGUEL (continuity Vmax) 2.93 cm2 - JOSÉ MIGUEL (continuity VTI) 3.13 cm2 - Tricuspid Valve Name Value Normal Range TR Vmax 2.74 m/sec - TR peak gradient 303 mmHg - RAP 3 mmHg - RVSP 33 mmHg - IVC diameter 1.77 cm (1.2 - 2.3) Pulmonic Valve/Qp:Qs Name Value Normal Range PV Vmax 0.77 m/sec - PV peak gradient 2.4 mmHg - PV acceleration time 114.18 msec - Echocardiogram Limited Views 12/17/19 14:53 Transthoracic Echocardiogram Indication: R/O Vegetations BP: 144/83 HR: 133 Conclusions *Global left ventricular systolic function is mildly decreased. *The estimated ejection fraction is 45-50%. *A trivial pericardial effusion is visualized. Findings Left Ventricle: The left ventricular chamber size is normal. Global left ventricular systolic function is mildly decreased. The estimated ejection fraction is 45-50%. Left Atrium: The left atrial chamber size is normal. Right Ventricle: The right ventricular cavity size is normal. Right Atrium: The right atrial cavity size is normal. Aortic Valve: The aortic valve is not well visualized. There is no evidence of aortic regurgitation. Mitral Valve: The mitral valve leaflets are mildly thickened. There is trace of mitral regurgitation. Tricuspid Valve: The tricuspid valve leaflets are mildly thickened. There is trace tricuspid regurgitation. The right ventricular systolic pressure is calculated at 29 mmHg. Pulmonic Valve: The pulmonic valve is not well visualized. There is no evidence of pulmonic regurgitation. Pericardium: A trivial pericardial effusion is visualized. Aorta: There is no dilatation of the ascending aorta. There is no dilatation of the aortic root. Venous: The inferior vena cava appears normal in size. There is a greater than 50% respiratory change in the inferior vena cava dimension. Measurements Chambers 2D Name Value Normal Range IVSd (2D) 0.83 cm (0.6 - 1.1) LVPWd (2D) 0.98 cm (0.6 - 1.1) LVIDd (2D) 3.71 cm (3.7 - 5.6) LVIDs (2D) 2.93 cm (2 - 3.8) LV FS (2D) 21.12 % - EF Teichholz (2D) 43.71 % - Ao root diameter (2D) 3.02 cm (2 - 3.7) Volumes/Mass Name Value Normal Range LA ESV SP 4CH (A/L) 36.8 ml - LA ESV SP 2CH (A/L) 45.89 ml - LA ESV BP (A/L) 42.35 ml - LA ESV BP (A/L) index 26.63 ml/m2 - LA ESV SP 4CH (MOD) 34.42 ml - LA ESV SP 2CH (MOD) 44.21 ml - LA ESV BP (MOD) 39.82 ml - LA ESV BP (MOD) index 25.05 ml/m2 - Aortic Valve Name Value Normal Range LVOT diameter 1.63 cm - Tricuspid Valve Name Value Normal Range TR Vmax 2.56 m/sec - TR peak gradient 26 mmHg - RAP 3 mmHg - RVSP 29 mmHg - IVC diameter 1.83 cm (1.2 - 2.3) [place]/IV: Voiding Method Incontinent IV Catheter Type [Forearm] Peripheral IV IV Catheter Type [Left Forearm INT / Saline Lock ] IV Catheter Type [Right INT / Saline Lock Antecubital] IV Catheter Type [Right Hand] INT / Saline Lock IV Catheter Type [Right Wrist] Peripheral IV IV Catheter Type [Left Wrist] Peripheral IV IV Catheter Type [Left Peripheral IV Antecubital] IV Catheter Type [Right INT / Saline Lock Forearm] IV Catheter Type [Left Hand] INT / Saline Lock Active Medications - Current Medications Current Medications: Generic Name Dose Route Start Last Admin Trade Name Freq PRN Reason Stop Dose Admin Acetaminophen 650 mg 12/06/19 10:25 03/17/20 22:19 Tylenol FEEDTUBE 650 mg Q6H PRN Administration TEMP >/=100.3 Acetylcysteine 200 mg 02/16/20 20:00 03/18/20 08:27 Mucomyst Inhalation INHALATION 200 mg Q12HRT LUCHO Administration Albuterol/Ipratropium 1 ampul 03/18/20 20:00 Duoneb *Not For Prn Use* IH Q6HRT [facility] Alprazolam 1 mg 02/21/20 18:24 03/17/20 22:17 Xanax PO 1 mg Q8H PRN Administration Anxiety Lipase/Protease/Amylase 1 each 11/23/19 11:[address] 10,500 Unit FEEDTUBE PRN PRN Use w/ sod bicarb for FT Bisacodyl 10 mg 02/06/20 13:57 Dulcolax MO QDAY PRN Constipation unrelieved by MOM Docusate Sodium 100 mg 02/18/20 22:00 03/18/20 09:11 Colace FEEDTUBE 100 mg BID LUCHO Administration Enoxaparin Sodium 40 mg 03/07/20 22:00 03/17/20 22:17 Enoxaparin SUB-Q 40 mg QDAY@2200 LUCHO Administration Glycopyrrolate 2 mg 12/31/19 20:00 03/18/20 13:25 Robinul PO 2 mg TID LUCHO Administration Haloperidol Lactate 5 mg 03/05/20 09:22 03/16/20 08:35 Haldol IM 5 mg Q6H PRN Administration Agitation Hydralazine HCl 10 mg 11/24/19 00:45 03/03/20 05:57 Apresoline IV 10 mg Q6H PRN Administration SBP > 160 Hydroxyzine Pamoate 25 mg 12/06/19 10:00 03/18/20 09:10 Vistaril PO 25 mg BID LUCHO Administration Lansoprazole 30 mg 11/27/19 10:00 03/18/20 09:12 Prevacid Solutab FEEDTUBE 30 mg QDAY LUCHO Administration Levetiracetam 500 mg 11/29/19 10:00 03/18/20 09:11 Keppra PO 500 mg BID LUCHO Administration Metoprolol Tartrate 12.5 mg 02/23/20 22:00 03/18/20 09:11 Metoprolol PO 12.5 mg BID LUCHO Administration Mirtazapine 30 mg 12/06/19 10:00 03/18/20 09:12 Remeron PO 30 mg DAILY LUCHO Administration Nicotine 21 mg 02/16/20 13:00 03/18/20 09:11 Habitrol TD 21 mg QDAY LUCHO Administration Ondansetron HCl 4 mg 12/10/19 07:53 02/25/20 02:51 Zofran IV 4 mg Q4H PRN Administration Nausea And Vomiting Polyethylene Glycol 17 gm 02/06/20 13:57 Miralax 3350 PO QDAY PRN Constipation Quetiapine Fumarate 100 mg 03/06/20 10:00 03/18/20 09:11 Seroquel FEEDTUBE 100 mg BID LUCHO Administration Scopolamine 1 each 02/08/20 15:00 03/18/20 09:12 Transderm-Scop TD 1 each Q3D LUCHO Administration Sertraline HCl 25 mg 01/01/20 10:00 03/18/20 09:12 Zoloft PO 25 mg QDAY LUCHO Administration Simple Syrup 15 ml 11/23/19 11:50 Simple Syrup FEEDTUBE PRN PRN Hypoglycemia BG<70 Simple Syrup 30 ml 11/23/19 11:50 Simple Syrup FEEDTUBE PRN PRN Hypoglycemia Sodium Bicarbonate 325 mg 11/23/19 11:50 Sodium Bicarbonate FEEDTUBE PRN PRN For Clogged Feeding Tube Nutrition/Malnutrition Assess - Dietary Evaluation Nutrition/Malnutrition Findings: Nutrition Notes Start: 11/23/19 11:29 Freq: Status: Active Protocol: Document 03/13/20 14:31 LM (Rec: 03/13/20 14:32 LM [id number]) Nutrition Notes Initial or Follow up Reassessment Current Diagnosis Hypertension Other Pertinent Diagnosis Cardaic arrest, ETOH dependence, UTI Current Diet Jevity 1.2 at 60ml/hr Labs/Tests Reviewed Pertinent Medications Reviewed Height 5 ft 6 in Weight 46.7 kg [place] Body Weight (kg) 59.09 BMI 16.6 Subjective/Other Information Pt tolerating TF at goal. Percent of energy/protein needs met: 97%/100% Burn Absent Trauma Absent GI Symptoms None Current % PO Negligible Interpretation of Weight Loss (severe) >2% in 1 week Muscle Mass Mild Depletion (non-severe) #2 Nutrition Diagnosis Malnutrition Diagnosis Progress(for reassessment Continues documentation) #1 Diagnosis Progress(for reassessment Continues documentation) Is patient on ventilator? No Is Patient Ambulatory and/or Out of Bed No REE-([place]-confined to bed) 1305.120 Kcal/Kg value to use for calculation 38 Approximate Energy Requirements Using 1775 kcal/Kg Calculation Used for Recommendations Kcal/kg Additional Notes Protein: 60-75g (1.2-1.5g/kg) Fluid: 1 ml/kcal Nutrition Intervention Change Diet Order: Continue TF Nutrition Support: Jevity 1.2 at 60ml/hr Flush 100ml q4h Kcal 1,728 Protein (gm) 80 Fluid (mL) 1,162 Goal #1 TF tolerance Goal #2 Meet at least 80% of energy and protein needs via TF Goal #3 Wt gain/maintenacne Anticipated Discharge Needs: TF Follow-Up By: 03/20/20 Additional Comments F/U for TF tolerance
--- NOTE | 2020-03-18 16:50 | Progress Note ---
Assessment and Plan Patient Decanulated. Patient placed on 2 litres O2 via nasal canula. Patient not using it. O2 saturation 96%. Patient awake and talking. Still not well oriented. - Patient Problems (1) Acute respiratory failure Current Visit: Yes Status: Acute Qualifiers: Respiratory failure complication: hypoxia Qualified Code(s): J96.01 - Acute respiratory failure with hypoxia Plan to address problem: Patient decanulated and on 2 litres O2. O2 saturation 96%. Aspiration precautions. Continue albuterol/atrovent aerosol treatments q 6 hours. (2) Alcohol abuse Current Visit: Yes Status: Acute Plan to address problem: Management as per primary care. (3) Cardiac arrest with successful resuscitation Current Visit: Yes Status: Acute Plan to address problem: Patient successfully resucitated. Alert, awake. Decanulated. On 2 litres O2. O2 saturation 96%. (4) Increased ammonia level Current Visit: Yes Status: Acute Plan to address problem: Management as per primary care. (5) Seizure disorder Current Visit: Yes Status: Acute Plan to address problem: Management as per primary care and neurology. (6) HTN (hypertension) Current Visit: No Status: Acute Plan to address problem: Management as per primary care. Subjective Date of service: 03/18/20 Principal diagnosis: Ac cardiopulmonary arrest; Ac hypoxemic resp failure; Acute encephalopathy Interval history: Patient Decanulated. Patient placed on 2 litres O2 via nasal canula. Patient not using it. O2 saturation 86. Patient awake and talking. Still not well oriented. Objective Vital Signs - 12hr 03/18/20 03/18/20 03/18/20 07:47 07:56 09:05 Temperature 97.2 F L Pulse Rate 83 39 L Pulse Rate [ 86 Anterior Bilateral Throughout] Pulse Rate [ Apical] Pulse Rate [ From Monitor] Pulse Rate [ Left Dorsalis Pedis] Pulse Rate [ Left Radial] Pulse Rate [ Right Dorsalis Pedis] Pulse Rate [ Right Radial] Respiratory 18 Rate Respiratory 18 Rate [Anterior Bilateral Throughout] Blood Pressure 119/80 Blood Pressure 126/82 [Left] O2 Sat by Pulse 98 78 L Oximetry O2 Sat by Pulse Oximetry [ Assessment] 03/18/20 03/18/20 03/18/20 09:11 10:00 11:36 Temperature 97.1 F L Pulse Rate 96 H 87 88 Pulse Rate [ Anterior Bilateral Throughout] Pulse Rate [ 83 Apical] Pulse Rate [ 83 From Monitor] Pulse Rate [ 83 Left Dorsalis Pedis] Pulse Rate [ 83 Left Radial] Pulse Rate [ 83 Right Dorsalis Pedis] Pulse Rate [ 83 Right Radial] Respiratory 19 18 Rate Respiratory Rate [Anterior Bilateral Throughout] Blood Pressure 119/80 Blood Pressure 115/80 [Left] O2 Sat by Pulse 96 97 Oximetry O2 Sat by Pulse Oximetry [ Assessment] 03/18/20 03/18/20 03/18/20 11:52 12:00 14:04 Temperature Pulse Rate 92 H Pulse Rate [ 92 H Anterior Bilateral Throughout] Pulse Rate [ Apical] Pulse Rate [ From Monitor] Pulse Rate [ Left Dorsalis Pedis] Pulse Rate [ Left Radial] Pulse Rate [ Right Dorsalis Pedis] Pulse Rate [ Right Radial] Respiratory Rate Respiratory 18 Rate [Anterior Bilateral Throughout] Blood Pressure Blood Pressure [Left] O2 Sat by Pulse Oximetry O2 Sat by Pulse 97 Oximetry [ Assessment] 03/18/20 16:00 Temperature 97.3 F L Pulse Rate 79 Pulse Rate [ Anterior Bilateral Throughout] Pulse Rate [ Apical] Pulse Rate [ From Monitor] Pulse Rate [ Left Dorsalis Pedis] Pulse Rate [ Left Radial] Pulse Rate [ Right Dorsalis Pedis] Pulse Rate [ Right Radial] Respiratory 18 Rate Respiratory Rate [Anterior Bilateral Throughout] Blood Pressure Blood Pressure 109/75 [Left] O2 Sat by Pulse 96 Oximetry O2 Sat by Pulse Oximetry [ Assessment] Constitutional: no acute distress, alert, other (Agitating.) Eyes: non-icteric ENT: oropharynx moist, other (Patient decaulated.) Neck: supple, no lymphadenopathy, no JVD Effort: normal Ascultation: Bilateral: diminished breath sounds, rhonchi Percussion: Bilateral: not dull Cardiovascular: regular rate and rhythm (tachycardia), other (S1,S2) Gastrointestinal: normoactive bowel sounds, soft, non-tender, non-distended Integumentary: normal Extremities: no cyanosis, no edema, pulses normal, no ischemia or petechiae Neurologic: normal mental status, non-focal exam, pupils equal and round, CN II- XII normal, motor strength normal and Psychiatric: anxious CBC and BMP: 03/12/20 04:53 03/13/20 03:50 ABG, PT/INR, D-dimer: ABG ABG pH 7.433 pH Units (7.350-7.450) 03/08/20 13:25 ABG pCO2 40.2 mm Hg 03/08/20 13:25 ABG pO2 71.1 mm Hg (80.0-90.0) L 03/08/20 13:25 ABG O2 Saturation 97.0 % (95.0-99.0) 03/08/20 13:25 PT/INR, D-dimer PT 17.0 Sec. (12.2-14.9) H 11/23/19 03:47 INR 1.36 (0.87-1.13) H 11/23/19 03:47 Abnormal lab findings: Abnormal Labs 11/22/19 11/22/19 11/22/19 23:17 23:18 23:27 WBC 21.2 H RBC 3.59 L Hgb 9.8 L Hct MCH 27 L RDW 18.6 H Plt Count 454 H Lymph % (Auto) Rowan % (Auto) Rowan # Baso # Seg Neutrophils % Seg Neuts % (Manual) 86.0 H Lymphocytes % (Manual) 9.0 L Monocytes % (Manual) Seg Neutrophils # Seg Neutrophils # Man 18.2 H Lymphocytes # (Manual) Monocytes # (Manual) 1.1 H Eosinophils # (Manual) Basophils # (Manual) PT INR APTT ABG pH ABG pO2 ABG HCO3 ABG O2 Saturation ABG Base Excess ABG Hemoglobin Oxyhemoglobin Sodium Potassium Chloride Carbon Dioxide BUN Creatinine Glucose POC Glucose 53 L Lactic Acid Calcium Ionized Calcium Phosphorus Magnesium Total Bilirubin AST ALT Alkaline Phosphatase Ammonia Total Creatine Kinase CK-MB (CK-2) CK-MB (CK-2) Rel Index Total Protein Albumin Urine WBC (Auto) 40.0 H Vancomycin Trough Salicylates Acetaminophen Plasma/Serum Alcohol Crossmatch 11/22/19 11/22/19 11/22/19 23:27 23:27 23:27 WBC RBC Hgb Hct MCH RDW Plt Count Lymph % (Auto) Rowan % (Auto) Rowan # Baso # Seg Neutrophils % Seg Neuts % (Manual) Lymphocytes % (Manual) Monocytes % (Manual) Seg Neutrophils # Seg Neutrophils # Man Lymphocytes # (Manual) Monocytes # (Manual) Eosinophils # (Manual) Basophils # (Manual) PT INR APTT ABG pH ABG pO2 ABG HCO3 ABG O2 Saturation ABG Base Excess ABG Hemoglobin Oxyhemoglobin Sodium Potassium 2.4 L* Chloride 85.1 L Carbon Dioxide 19 L BUN Creatinine 0.5 L Glucose 261 H POC Glucose Lactic Acid Calcium Ionized Calcium Phosphorus Magnesium Total Bilirubin AST 609 H ALT 152 H Alkaline Phosphatase 160 H Ammonia 117.0 H Total Creatine Kinase 139 H CK-MB (CK-2) 8.3 H CK-MB (CK-2) Rel Index 5.9 H Total Protein Albumin 3.6 L Urine WBC (Auto) Vancomycin Trough Salicylates < 0.3 L Acetaminophen Plasma/Serum Alcohol Crossmatch 11/22/19 11/22/19 11/23/19 23:27 23:27 01:10 WBC RBC Hgb Hct MCH RDW Plt Count Lymph % (Auto) Rowan % (Auto) Rowan # Baso # Seg Neutrophils % Seg Neuts % (Manual) Lymphocytes % (Manual) Monocytes % (Manual) Seg Neutrophils # Seg Neutrophils # Man Lymphocytes # (Manual) Monocytes # (Manual) Eosinophils # (Manual) Basophils # (Manual) PT INR APTT ABG pH 7.273 L ABG pO2 209.7 H ABG HCO3 ABG O2 Saturation 99.2 H ABG Base Excess -3.9 L ABG Hemoglobin 10.6 L Oxyhemoglobin 93.9 L Sodium Potassium Chloride Carbon Dioxide BUN Creatinine Glucose POC Glucose Lactic Acid Calcium Ionized Calcium Phosphorus Magnesium Total Bilirubin AST ALT Alkaline Phosphatase Ammonia Total Creatine Kinase CK-MB (CK-2) CK-MB (CK-2) Rel Index Total Protein Albumin Urine WBC (Auto) Vancomycin Trough Salicylates Acetaminophen < 5.0 L Plasma/Serum Alcohol 0.08 H Crossmatch 11/23/19 11/23/19 11/23/19 01:19 01:19 03:47 WBC RBC Hgb Hct MCH RDW Plt Count Lymph % (Auto) Rowan % (Auto) Rowan # Baso # Seg Neutrophils % Seg Neuts % (Manual) Lymphocytes % (Manual) Monocytes % (Manual) Seg Neutrophils # Seg Neutrophils # Man Lymphocytes # (Manual) Monocytes # (Manual) Eosinophils # (Manual) Basophils # (Manual) PT 16.3 H INR 1.29 H APTT ABG pH ABG pO2 ABG HCO3 ABG O2 Saturation ABG Base Excess ABG Hemoglobin Oxyhemoglobin Sodium Potassium Chloride Carbon Dioxide BUN Creatinine Glucose POC Glucose Lactic Acid 2.10 H* 5.00 H* Calcium Ionized Calcium Phosphorus Magnesium Total Bilirubin AST ALT Alkaline Phosphatase Ammonia Total Creatine Kinase CK-MB (CK-2) CK-MB (CK-2) Rel Index Total Protein Albumin Urine WBC (Auto) Vancomycin Trough Salicylates Acetaminophen Plasma/Serum Alcohol Crossmatch 11/23/19 11/23/19 11/23/19 03:47 03:47 04:53 WBC RBC Hgb 9.4 L Hct MCH RDW Plt Count Lymph % (Auto) Rowan % (Auto) Rowan # Baso # Seg Neutrophils % Seg Neuts % (Manual) Lymphocytes % (Manual) Monocytes % (Manual) Seg Neutrophils # Seg Neutrophils # Man Lymphocytes # (Manual) Monocytes # (Manual) Eosinophils # (Manual) Basophils # (Manual) PT 17.0 H INR 1.36 H APTT 128.2 H* ABG pH ABG pO2 ABG HCO3 ABG O2 Saturation ABG Base Excess ABG Hemoglobin Oxyhemoglobin Sodium Potassium Chloride Carbon Dioxide 18 L BUN Creatinine 0.5 L Glucose 105 H POC Glucose Lactic Acid Calcium 8.3 L Ionized Calcium Phosphorus 2.40 L Magnesium Total Bilirubin 1.30 H AST 761 H ALT 158 H Alkaline Phosphatase 143 H Ammonia Total Creatine Kinase CK-MB (CK-2) CK-MB (CK-2) Rel Index Total Protein Albumin 2.8 L Urine WBC (Auto) Vancomycin Trough Salicylates Acetaminophen Plasma/Serum Alcohol Crossmatch 11/23/19 11/23/19 11/23/19 05:12 06:32 06:32 WBC 16.8 H RBC 3.31 L Hgb 8.9 L Hct 28.7 L MCH 27 L RDW 18.6 H Plt Count Lymph % (Auto) Rowan % (Auto) Rowan # Baso # Seg Neutrophils % Seg Neuts % (Manual) 94.0 H Lymphocytes % (Manual) 1.0 L Monocytes % (Manual) Seg Neutrophils # Seg Neutrophils # Man 15.8 H Lymphocytes # (Manual) 0.2 L Monocytes # (Manual) Eosinophils # (Manual) Basophils # (Manual) PT INR APTT ABG pH ABG pO2 ABG HCO3 ABG O2 Saturation ABG Base Excess -3.2 L ABG Hemoglobin 9.0 L Oxyhemoglobin 93.6 L Sodium Potassium Chloride Carbon Dioxide BUN Creatinine Glucose POC Glucose Lactic Acid Calcium Ionized Calcium 4.5 L Phosphorus Magnesium Total Bilirubin AST ALT Alkaline Phosphatase Ammonia Total Creatine Kinase CK-MB (CK-2) CK-MB (CK-2) Rel Index Total Protein Albumin Urine WBC (Auto) Vancomycin Trough Salicylates Acetaminophen Plasma/Serum Alcohol Crossmatch 11/23/19 11/24/19 11/24/19 06:32 04:35 04:35 WBC RBC Hgb Hct MCH RDW Plt Count Lymph % (Auto) Rowan % (Auto) Rowan # Baso # Seg Neutrophils % Seg Neuts % (Manual) Lymphocytes % (Manual) Monocytes % (Manual) Seg Neutrophils # Seg Neutrophils # Man Lymphocytes # (Manual) Monocytes # (Manual) Eosinophils # (Manual) Basophils # (Manual) PT INR APTT ABG pH ABG pO2 ABG HCO3 ABG O2 Saturation ABG Base Excess ABG Hemoglobin Oxyhemoglobin Sodium Potassium Chloride Carbon Dioxide BUN Creatinine Glucose POC Glucose Lactic Acid 3.30 H* Calcium Ionized Calcium Phosphorus Magnesium 1.40 L Total Bilirubin AST ALT Alkaline Phosphatase Ammonia 98.0 H Total Creatine Kinase CK-MB (CK-2) CK-MB (CK-2) Rel Index Total Protein Albumin Urine WBC (Auto) Vancomycin Trough Salicylates Acetaminophen Plasma/Serum Alcohol Crossmatch 11/24/19 11/25/19 11/25/19 05:22 04:34 05:05 WBC 17.3 H RBC 2.88 L Hgb 7.8 L Hct 24.6 L MCH 27 L RDW 18.5 H Plt Count Lymph % (Auto) 7.7 L Rowan % (Auto) 9.7 H Rowan # 1.7 H Baso # Seg Neutrophils % 82.2 H Seg Neuts % (Manual) Lymphocytes % (Manual) Monocytes % (Manual) Seg Neutrophils # 14.2 H Seg Neutrophils # Man Lymphocytes # (Manual) Monocytes # (Manual) Eosinophils # (Manual) Basophils # (Manual) PT INR APTT ABG pH 7.475 H ABG pO2 ABG HCO3 29.4 H 32.3 H ABG O2 Saturation ABG Base Excess 5.4 H 6.9 H ABG Hemoglobin 9.0 L 10.6 L Oxyhemoglobin 94.3 L Sodium Potassium Chloride Carbon Dioxide BUN Creatinine Glucose POC Glucose Lactic Acid Calcium Ionized Calcium Phosphorus Magnesium Total Bilirubin AST ALT Alkaline Phosphatase Ammonia Total Creatine Kinase CK-MB (CK-2) CK-MB (CK-2) Rel Index Total Protein Albumin Urine WBC (Auto) Vancomycin Trough Salicylates Acetaminophen Plasma/Serum Alcohol Crossmatch 11/25/19 11/25/19 11/26/19 05:05 22:46 03:31 WBC RBC Hgb Hct MCH RDW Plt Count Lymph % (Auto) Rowan % (Auto) Rowan # Baso # Seg Neutrophils % Seg Neuts % (Manual) Lymphocytes % (Manual) Monocytes % (Manual) Seg Neutrophils # Seg Neutrophils # Man Lymphocytes # (Manual) Monocytes # (Manual) Eosinophils # (Manual) Basophils # (Manual) PT INR APTT ABG pH 7.459 H ABG pO2 ABG HCO3 34.2 H ABG O2 Saturation ABG Base Excess 9.4 H ABG Hemoglobin 7.6 L Oxyhemoglobin 94.8 L Sodium 152 H D 147 H Potassium 2.3 L* D 2.8 L* D Chloride 107.8 H Carbon Dioxide 31 H D 33 H BUN Creatinine 0.6 L 0.6 L Glucose 148 H 177 H POC Glucose Lactic Acid Calcium Ionized Calcium Phosphorus Magnesium Total Bilirubin AST 105 H ALT 71 H Alkaline Phosphatase 155 H Ammonia Total Creatine Kinase CK-MB (CK-2) CK-MB (CK-2) Rel Index Total Protein 5.2 L D Albumin 2.9 L Urine WBC (Auto) Vancomycin Trough Salicylates Acetaminophen Plasma/Serum Alcohol Crossmatch 11/26/19 11/26/19 11/27/19 08:24 08:24 04:20 WBC 12.0 H RBC 3.00 L Hgb 8.0 L 9.3 L Hct 25.9 L 29.7 L MCH 27 L RDW 18.5 H Plt Count Lymph % (Auto) Rowan % (Auto) Rowan # Baso # Seg Neutrophils % Seg Neuts % (Manual) 89.0 H Lymphocytes % (Manual) 4.0 L Monocytes % (Manual) Seg Neutrophils # Seg Neutrophils # Man 10.7 H Lymphocytes # (Manual) 0.5 L Monocytes # (Manual) Eosinophils # (Manual) Basophils # (Manual) PT INR APTT ABG pH ABG pO2 ABG HCO3 ABG O2 Saturation ABG Base Excess ABG Hemoglobin Oxyhemoglobin Sodium 146 H Potassium 3.4 L D Chloride Carbon Dioxide BUN Creatinine 0.5 L Glucose 165 H POC Glucose Lactic Acid Calcium Ionized Calcium Phosphorus Magnesium Total Bilirubin AST 57 H ALT Alkaline Phosphatase 166 H Ammonia Total Creatine Kinase CK-MB (CK-2) CK-MB (CK-2) Rel Index Total Protein Albumin 2.9 L Urine WBC (Auto) Vancomycin Trough Salicylates Acetaminophen Plasma/Serum Alcohol Crossmatch 11/27/19 11/27/19 11/27/19 04:28 04:28 04:42 WBC RBC Hgb Hct MCH RDW Plt Count Lymph % (Auto) Rowan % (Auto) Rowan # Baso # Seg Neutrophils % Seg Neuts % (Manual) Lymphocytes % (Manual) Monocytes % (Manual) Seg Neutrophils # Seg Neutrophils # Man Lymphocytes # (Manual) Monocytes # (Manual) Eosinophils # (Manual) Basophils # (Manual) PT INR APTT ABG pH 7.470 H ABG pO2 74.0 L ABG HCO3 33.8 H ABG O2 Saturation ABG Base Excess 9.1 H ABG Hemoglobin 8.7 L Oxyhemoglobin 94.7 L Sodium 146 H Potassium 2.9 L* Chloride Carbon Dioxide BUN 25 H Creatinine Glucose 213 H POC Glucose Lactic Acid Calcium Ionized Calcium Phosphorus 1.00 L Magnesium Total Bilirubin AST ALT Alkaline Phosphatase Ammonia Total Creatine Kinase CK-MB (CK-2) CK-MB (CK-2) Rel Index Total Protein Albumin Urine WBC (Auto) Vancomycin Trough Salicylates Acetaminophen Plasma/Serum Alcohol Crossmatch 11/27/19 11/27/19 11/27/19 05:37 12:20 15:46 WBC RBC Hgb Hct MCH RDW Plt Count Lymph % (Auto) Rowan % (Auto) Rowan # Baso # Seg Neutrophils % Seg Neuts % (Manual) Lymphocytes % (Manual) Monocytes % (Manual) Seg Neutrophils # Seg Neutrophils # Man Lymphocytes # (Manual) Monocytes # (Manual) Eosinophils # (Manual) Basophils # (Manual) PT INR APTT ABG pH ABG pO2 ABG HCO3 ABG O2 Saturation ABG Base Excess ABG Hemoglobin Oxyhemoglobin Sodium 146 H Potassium 3.5 L D Chloride Carbon Dioxide BUN 24 H Creatinine 0.6 L Glucose 187 H POC Glucose 117 H 220 H Lactic Acid Calcium Ionized Calcium Phosphorus Magnesium Total Bilirubin AST ALT Alkaline Phosphatase Ammonia Total Creatine Kinase CK-MB (CK-2) CK-MB (CK-2) Rel Index Total Protein Albumin Urine WBC (Auto) Vancomycin Trough Salicylates Acetaminophen Plasma/Serum Alcohol Crossmatch 11/27/19 11/28/19 11/28/19 17:28 05:00 05:02 WBC RBC Hgb Hct MCH RDW Plt Count Lymph % (Auto) Rowan % (Auto) Rowan # Baso # Seg Neutrophils % Seg Neuts % (Manual) Lymphocytes % (Manual) Monocytes % (Manual) Seg Neutrophils # Seg Neutrophils # Man Lymphocytes # (Manual) Monocytes # (Manual) Eosinophils # (Manual) Basophils # (Manual) PT INR APTT ABG pH ABG pO2 72.4 L ABG HCO3 33.6 H ABG O2 Saturation 94.1 L ABG Base Excess 7.3 H ABG Hemoglobin Oxyhemoglobin 91.8 L Sodium 146 H Potassium 3.3 L Chloride Carbon Dioxide BUN 25 H Creatinine 0.6 L Glucose 176 H POC Glucose 198 H Lactic Acid Calcium Ionized Calcium Phosphorus Magnesium Total Bilirubin AST ALT Alkaline Phosphatase Ammonia Total Creatine Kinase CK-MB (CK-2) CK-MB (CK-2) Rel Index Total Protein Albumin Urine WBC (Auto) Vancomycin Trough Salicylates Acetaminophen Plasma/Serum Alcohol Crossmatch 11/28/19 11/28/19 11/29/19 05:02 18:55 10:43 WBC 15.2 H 19.0 H RBC 3.06 L 3.01 L Hgb 8.3 L 8.3 L Hct 27.0 L 26.4 L MCH 27 L RDW 19.0 H 19.7 H Plt Count 479 H 611 H Lymph % (Auto) Rowan % (Auto) Rowan # Baso # Seg Neutrophils % Seg Neuts % (Manual) 92.0 H Lymphocytes % (Manual) 2.0 L Monocytes % (Manual) Seg Neutrophils # Seg Neutrophils # Man 14.0 H Lymphocytes # (Manual) 0.3 L Monocytes # (Manual) Eosinophils # (Manual) Basophils # (Manual) PT INR APTT ABG pH ABG pO2 ABG HCO3 ABG O2 Saturation ABG Base Excess ABG Hemoglobin Oxyhemoglobin Sodium Potassium Chloride Carbon Dioxide BUN Creatinine Glucose POC Glucose 138 H Lactic Acid Calcium Ionized Calcium Phosphorus Magnesium Total Bilirubin AST ALT Alkaline Phosphatase Ammonia Total Creatine Kinase CK-MB (CK-2) CK-MB (CK-2) Rel Index Total Protein Albumin Urine WBC (Auto) Vancomycin Trough Salicylates Acetaminophen Plasma/Serum Alcohol Crossmatch 11/29/19 11/29/19 11/29/19 10:43 12:27 19:25 WBC RBC Hgb Hct MCH RDW Plt Count Lymph % (Auto) Rowan % (Auto) Rowan # Baso # Seg Neutrophils % Seg Neuts % (Manual) Lymphocytes % (Manual) Monocytes % (Manual) Seg Neutrophils # Seg Neutrophils # Man Lymphocytes # (Manual) Monocytes # (Manual) Eosinophils # (Manual) Basophils # (Manual) PT INR APTT ABG pH ABG pO2 ABG HCO3 ABG O2 Saturation ABG Base Excess ABG Hemoglobin Oxyhemoglobin Sodium Potassium 2.8 L* Chloride Carbon Dioxide BUN 20 H Creatinine 0.5 L Glucose 121 H POC Glucose 128 H 120 H Lactic Acid Calcium Ionized Calcium Phosphorus Magnesium Total Bilirubin AST ALT Alkaline Phosphatase Ammonia Total Creatine Kinase CK-MB (CK-2) CK-MB (CK-2) Rel Index Total Protein Albumin Urine WBC (Auto) Vancomycin Trough Salicylates Acetaminophen Plasma/Serum Alcohol Crossmatch 11/29/19 11/30/19 11/30/19 23:46 04:10 05:02 WBC RBC Hgb Hct MCH RDW Plt Count Lymph % (Auto) Rowan % (Auto) Rowan # Baso # Seg Neutrophils % Seg Neuts % (Manual) Lymphocytes % (Manual) Monocytes % (Manual) Seg Neutrophils # Seg Neutrophils # Man Lymphocytes # (Manual) Monocytes # (Manual) Eosinophils # (Manual) Basophils # (Manual) PT INR APTT ABG pH ABG pO2 76.3 L ABG HCO3 32.5 H ABG O2 Saturation ABG Base Excess 6.9 H ABG Hemoglobin 8.0 L Oxyhemoglobin 92.6 L Sodium Potassium Chloride Carbon Dioxide BUN Creatinine Glucose POC Glucose 116 H 128 H Lactic Acid Calcium Ionized Calcium Phosphorus Magnesium Total Bilirubin AST ALT Alkaline Phosphatase Ammonia Total Creatine Kinase CK-MB (CK-2) CK-MB (CK-2) Rel Index Total Protein Albumin Urine WBC (Auto) Vancomycin Trough Salicylates Acetaminophen Plasma/Serum Alcohol Crossmatch 11/30/19 11/30/19 11/30/19 05:25 05:25 12:59 WBC 18.4 H RBC 3.10 L Hgb 8.5 L Hct 27.5 L MCH 27 L RDW 20.9 H Plt Count 691 H Lymph % (Auto) 7.1 L Rowan % (Auto) 7.7 H Rowan # 1.4 H Baso # Seg Neutrophils % 83.4 H Seg Neuts % (Manual) Lymphocytes % (Manual) Monocytes % (Manual) Seg Neutrophils # 15.4 H Seg Neutrophils # Man Lymphocytes # (Manual) Monocytes # (Manual) Eosinophils # (Manual) Basophils # (Manual) PT INR APTT ABG pH ABG pO2 ABG HCO3 ABG O2 Saturation ABG Base Excess ABG Hemoglobin Oxyhemoglobin Sodium 146 H Potassium Chloride 107.2 H Carbon Dioxide BUN Creatinine 0.5 L Glucose 132 H POC Glucose 124 H Lactic Acid Calcium Ionized Calcium Phosphorus Magnesium Total Bilirubin AST 246 H ALT 274 H Alkaline Phosphatase 203 H Ammonia Total Creatine Kinase CK-MB (CK-2) CK-MB (CK-2) Rel Index Total Protein 5.4 L Albumin 2.9 L Urine WBC (Auto) Vancomycin Trough Salicylates Acetaminophen Plasma/Serum Alcohol Crossmatch 11/30/19 12/01/19 12/01/19 17:53 00:05 05:10 WBC RBC Hgb Hct MCH RDW Plt Count Lymph % (Auto) Rowan % (Auto) Rowan # Baso # Seg Neutrophils % Seg Neuts % (Manual) Lymphocytes % (Manual) Monocytes % (Manual) Seg Neutrophils # Seg Neutrophils # Man Lymphocytes # (Manual) Monocytes # (Manual) Eosinophils # (Manual) Basophils # (Manual) PT INR APTT ABG pH ABG pO2 ABG HCO3 ABG O2 Saturation ABG Base Excess ABG Hemoglobin Oxyhemoglobin Sodium Potassium Chloride Carbon Dioxide BUN Creatinine Glucose POC Glucose 113 H 143 H 145 H Lactic Acid Calcium Ionized Calcium Phosphorus Magnesium Total Bilirubin AST ALT Alkaline Phosphatase Ammonia Total Creatine Kinase CK-MB (CK-2) CK-MB (CK-2) Rel Index Total Protein Albumin Urine WBC (Auto) Vancomycin Trough Salicylates Acetaminophen Plasma/Serum Alcohol Crossmatch 12/01/19 12/01/19 12/01/19 05:33 08:23 08:23 WBC 22.7 H RBC 2.88 L Hgb 7.9 L Hct 25.2 L MCH 27 L RDW 21.0 H Plt Count 732 H Lymph % (Auto) [place] % (Auto) Rowan # Baso # Seg Neutrophils % Seg Neuts % (Manual) 91.0 H Lymphocytes % (Manual) 3.0 L Monocytes % (Manual) Seg Neutrophils # Seg Neutrophils # Man 20.7 H Lymphocytes # (Manual) 0.7 L Monocytes # (Manual) 1.1 H Eosinophils # (Manual) Basophils # (Manual) PT INR APTT ABG pH ABG pO2 68.6 L ABG HCO3 34.1 H ABG O2 Saturation ABG Base Excess 9.0 H ABG Hemoglobin 6.5 L Oxyhemoglobin 94.7 L Sodium Potassium Chloride Carbon Dioxide BUN Creatinine 0.5 L Glucose 125 H POC Glucose Lactic Acid Calcium Ionized Calcium Phosphorus Magnesium Total Bilirubin AST ALT Alkaline Phosphatase Ammonia Total Creatine Kinase CK-MB (CK-2) CK-MB (CK-2) Rel Index Total Protein Albumin Urine WBC (Auto) Vancomycin Trough Salicylates Acetaminophen Plasma/Serum Alcohol Crossmatch 12/01/19 12/01/19 12/01/19 13:21 17:54 20:59 WBC RBC Hgb Hct MCH RDW Plt Count Lymph % (Auto) Rowan % (Auto) Rowan # Baso # Seg Neutrophils % Seg Neuts % (Manual) Lymphocytes % (Manual) Monocytes % (Manual) Seg Neutrophils # Seg Neutrophils # Man Lymphocytes # (Manual) Monocytes # (Manual) Eosinophils # (Manual) Basophils # (Manual) PT INR APTT ABG pH ABG pO2 78.3 L ABG HCO3 33.8 H ABG O2 Saturation 94.9 L ABG Base Excess 7.9 H ABG Hemoglobin 11.5 L Oxyhemoglobin 92.3 L Sodium Potassium Chloride Carbon Dioxide BUN Creatinine Glucose POC Glucose 111 H 115 H Lactic Acid Calcium Ionized Calcium Phosphorus Magnesium Total Bilirubin AST ALT Alkaline Phosphatase Ammonia Total Creatine Kinase CK-MB (CK-2) CK-MB (CK-2) Rel Index Total Protein Albumin Urine WBC (Auto) Vancomycin Trough Salicylates Acetaminophen Plasma/Serum Alcohol Crossmatch 12/02/19 12/03/19 12/04/19 12:55 20:00 04:26 WBC 15.2 H RBC 2.69 L Hgb 7.4 L Hct 23.6 L MCH 27 L RDW 19.9 H Plt Count 838 H Lymph % (Auto) Rowan % (Auto) Rowan # Baso # Seg Neutrophils % Seg Neuts % (Manual) Lymphocytes % (Manual) Monocytes % (Manual) Seg Neutrophils # Seg Neutrophils # Man Lymphocytes # (Manual) Monocytes # (Manual) Eosinophils # (Manual) Basophils # (Manual) PT INR APTT ABG pH ABG pO2 68.3 L ABG HCO3 33.5 H ABG O2 Saturation 93.5 L ABG Base Excess 8.4 H ABG Hemoglobin 7.3 L Oxyhemoglobin 90.9 L Sodium Potassium Chloride Carbon Dioxide BUN Creatinine Glucose POC Glucose 107 H Lactic Acid Calcium Ionized Calcium Phosphorus Magnesium Total Bilirubin AST ALT Alkaline Phosphatase Ammonia Total Creatine Kinase CK-MB (CK-2) CK-MB (CK-2) Rel Index Total Protein Albumin Urine WBC (Auto) Vancomycin Trough Salicylates Acetaminophen Plasma/Serum Alcohol Crossmatch 12/04/19 12/04/19 12/04/19 04:26 07:45 12:02 WBC 15.9 H RBC 2.88 L Hgb 7.9 L Hct 25.1 L MCH RDW 20.4 H Plt Count 839 H Lymph % (Auto) 11.3 L Rowan % (Auto) 15.2 H Rowan # 2.4 H Baso # Seg Neutrophils % 72.4 H Seg Neuts % (Manual) Lymphocytes % (Manual) Monocytes % (Manual) Seg Neutrophils # 11.5 H Seg Neutrophils # Man Lymphocytes # (Manual) Monocytes # (Manual) Eosinophils # (Manual) Basophils # (Manual) PT INR APTT ABG pH ABG pO2 ABG HCO3 ABG O2 Saturation ABG Base Excess ABG Hemoglobin Oxyhemoglobin Sodium Potassium Chloride 96.5 L Carbon Dioxide BUN 21 H Creatinine 0.6 L Glucose 107 H POC Glucose 138 H Lactic Acid Calcium Ionized Calcium Phosphorus Magnesium Total Bilirubin AST ALT Alkaline Phosphatase Ammonia Total Creatine Kinase CK-MB (CK-2) CK-MB (CK-2) Rel Index Total Protein Albumin Urine WBC (Auto) Vancomycin Trough Salicylates Acetaminophen Plasma/Serum Alcohol Crossmatch 12/04/19 12/05/19 12/05/19 18:16 11:55 18:36 WBC RBC Hgb Hct MCH RDW Plt Count Lymph % (Auto) Rowan % (Auto) Rowan # Baso # Seg Neutrophils % Seg Neuts % (Manual) Lymphocytes % (Manual) Monocytes % (Manual) Seg Neutrophils # Seg Neutrophils # Man Lymphocytes # (Manual) Monocytes # (Manual) Eosinophils # (Manual) Basophils # (Manual) PT INR APTT ABG pH ABG pO2 ABG HCO3 ABG O2 Saturation ABG Base Excess ABG Hemoglobin Oxyhemoglobin Sodium Potassium Chloride Carbon Dioxide BUN Creatinine Glucose POC Glucose 135 H 125 H 135 H Lactic Acid Calcium Ionized Calcium Phosphorus Magnesium Total Bilirubin AST ALT Alkaline Phosphatase Ammonia Total Creatine Kinase CK-MB (CK-2) CK-MB (CK-2) Rel Index Total Protein Albumin Urine WBC (Auto) Vancomycin Trough Salicylates Acetaminophen Plasma/Serum Alcohol Crossmatch 12/05/19 12/06/19 12/06/19 23:30 04:14 05:43 WBC RBC Hgb Hct MCH RDW Plt Count Lymph % (Auto) [place] % (Auto) [place] # Baso # Seg Neutrophils % Seg Neuts % (Manual) Lymphocytes % (Manual) Monocytes % (Manual) Seg Neutrophils # Seg Neutrophils # Man Lymphocytes # (Manual) Monocytes # (Manual) Eosinophils # (Manual) Basophils # (Manual) PT INR APTT ABG pH ABG pO2 ABG HCO3 ABG O2 Saturation ABG Base Excess ABG Hemoglobin Oxyhemoglobin Sodium Potassium 5.6 H Chloride 95.0 L Carbon Dioxide BUN 48 H Creatinine 1.3 H D Glucose POC Glucose 126 H 121 H Lactic Acid Calcium Ionized Calcium Phosphorus Magnesium Total Bilirubin AST 89 H ALT 98 H Alkaline Phosphatase 476 H Ammonia Total Creatine Kinase CK-MB (CK-2) CK-MB (CK-2) Rel Index Total Protein Albumin 2.8 L Urine WBC (Auto) Vancomycin Trough Salicylates Acetaminophen Plasma/Serum Alcohol Crossmatch 12/06/19 12/06/19 12/07/19 10:39 14:34 00:19 WBC 17.3 H RBC 2.60 L Hgb 7.1 L Hct 22.7 L MCH 27 L RDW 20.1 H Plt Count 832 H Lymph % (Auto) [place] % (Auto) [place] # Baso # Seg Neutrophils % Seg Neuts % (Manual) Lymphocytes % (Manual) Monocytes % (Manual) Seg Neutrophils # Seg Neutrophils # Man Lymphocytes # (Manual) Monocytes # (Manual) Eosinophils # (Manual) Basophils # (Manual) PT INR APTT ABG pH ABG pO2 ABG HCO3 ABG O2 Saturation ABG Base Excess ABG Hemoglobin Oxyhemoglobin Sodium Potassium Chloride Carbon Dioxide BUN Creatinine Glucose POC Glucose 128 H 136 H Lactic Acid Calcium Ionized Calcium Phosphorus Magnesium Total Bilirubin AST ALT Alkaline Phosphatase Ammonia Total Creatine Kinase CK-MB (CK-2) CK-MB (CK-2) Rel Index Total Protein Albumin Urine WBC (Auto) Vancomycin Trough Salicylates Acetaminophen Plasma/Serum Alcohol Crossmatch 12/07/19 12/07/19 12/07/19 03:44 03:44 05:53 WBC 16.2 H RBC 2.56 L Hgb 7.1 L Hct 22.3 L MCH RDW 19.4 H Plt Count 782 H Lymph % (Auto) [place] % (Auto) [place] # Baso # Seg Neutrophils % Seg Neuts % (Manual) Lymphocytes % (Manual) Monocytes % (Manual) Seg Neutrophils # Seg Neutrophils # Man Lymphocytes # (Manual) Monocytes # (Manual) Eosinophils # (Manual) Basophils # (Manual) PT INR APTT ABG pH ABG pO2 ABG HCO3 ABG O2 Saturation ABG Base Excess ABG Hemoglobin Oxyhemoglobin Sodium Potassium Chloride 95.6 L Carbon Dioxide BUN 56 H Creatinine 1.4 H Glucose 120 H POC Glucose 128 H Lactic Acid Calcium 10.3 H Ionized Calcium Phosphorus Magnesium Total Bilirubin AST ALT Alkaline Phosphatase Ammonia Total Creatine Kinase CK-MB (CK-2) CK-MB (CK-2) Rel Index Total Protein Albumin Urine WBC (Auto) Vancomycin Trough Salicylates Acetaminophen Plasma/Serum Alcohol Crossmatch 12/07/19 12/07/19 12/08/19 12:54 23:47 00:20 WBC RBC Hgb Hct MCH RDW Plt Count Lymph % (Auto) [place] % (Auto) [place] # Baso # Seg Neutrophils % Seg Neuts % (Manual) Lymphocytes % (Manual) Monocytes % (Manual) Seg Neutrophils # Seg Neutrophils # Man Lymphocytes # (Manual) Monocytes # (Manual) Eosinophils # (Manual) Basophils # (Manual) PT INR APTT ABG pH ABG pO2 ABG HCO3 ABG O2 Saturation ABG Base Excess ABG Hemoglobin Oxyhemoglobin Sodium Potassium Chloride Carbon Dioxide BUN Creatinine Glucose POC Glucose 128 H 130 H 124 H Lactic Acid Calcium Ionized Calcium Phosphorus Magnesium Total Bilirubin AST ALT Alkaline Phosphatase Ammonia Total Creatine Kinase CK-MB (CK-2) CK-MB (CK-2) Rel Index Total Protein Albumin Urine WBC (Auto) Vancomycin Trough Salicylates Acetaminophen Plasma/Serum Alcohol Crossmatch 12/08/19 12/08/19 12/08/19 06:38 12:04 18:26 WBC RBC Hgb Hct MCH RDW Plt Count Lymph % (Auto) [place] % (Auto) [place] # Baso # Seg Neutrophils % Seg Neuts % (Manual) Lymphocytes % (Manual) Monocytes % (Manual) Seg Neutrophils # Seg Neutrophils # Man Lymphocytes # (Manual) Monocytes # (Manual) Eosinophils # (Manual) Basophils # (Manual) PT INR APTT ABG pH ABG pO2 ABG HCO3 ABG O2 Saturation ABG Base Excess ABG Hemoglobin Oxyhemoglobin Sodium Potassium Chloride Carbon Dioxide BUN Creatinine Glucose POC Glucose 137 H 129 H 150 H Lactic Acid Calcium Ionized Calcium Phosphorus Magnesium Total Bilirubin AST ALT Alkaline Phosphatase Ammonia Total Creatine Kinase CK-MB (CK-2) CK-MB (CK-2) Rel Index Total Protein Albumin Urine WBC (Auto) Vancomycin Trough Salicylates Acetaminophen Plasma/Serum Alcohol Crossmatch 12/09/19 12/09/19 12/09/19 00:56 05:34 06:13 WBC RBC Hgb Hct MCH RDW Plt Count Lymph % (Auto) [place] % (Auto) [place] # Baso # Seg Neutrophils % Seg Neuts % (Manual) Lymphocytes % (Manual) Monocytes % (Manual) Seg Neutrophils # Seg Neutrophils # Man Lymphocytes # (Manual) Monocytes # (Manual) Eosinophils # (Manual) Basophils # (Manual) PT INR APTT ABG pH ABG pO2 ABG HCO3 ABG O2 Saturation ABG Base Excess ABG Hemoglobin Oxyhemoglobin Sodium 146 H Potassium Chloride Carbon Dioxide BUN 66 H Creatinine 1.9 H Glucose 116 H POC Glucose 130 H 130 H Lactic Acid Calcium Ionized Calcium Phosphorus Magnesium Total Bilirubin AST ALT Alkaline Phosphatase Ammonia Total Creatine Kinase CK-MB (CK-2) CK-MB (CK-2) Rel Index Total Protein Albumin Urine WBC (Auto) Vancomycin Trough Salicylates Acetaminophen Plasma/Serum Alcohol Crossmatch 12/09/19 12/09/19 12/10/19 11:52 17:50 00:14 WBC RBC Hgb Hct MCH RDW Plt Count Lymph % (Auto) [place] % (Auto) [place] # Baso # Seg Neutrophils % Seg Neuts % (Manual) Lymphocytes % (Manual) Monocytes % (Manual) Seg Neutrophils # Seg Neutrophils # Man Lymphocytes # (Manual) Monocytes # (Manual) Eosinophils # (Manual) Basophils # (Manual) PT INR APTT ABG pH ABG pO2 ABG HCO3 ABG O2 Saturation ABG Base Excess ABG Hemoglobin Oxyhemoglobin Sodium Potassium Chloride Carbon Dioxide BUN Creatinine Glucose POC Glucose 135 H 120 H 116 H Lactic Acid Calcium Ionized Calcium Phosphorus Magnesium Total Bilirubin AST ALT Alkaline Phosphatase Ammonia Total Creatine Kinase CK-MB (CK-2) CK-MB (CK-2) Rel Index Total Protein Albumin Urine WBC (Auto) Vancomycin Trough Salicylates Acetaminophen Plasma/Serum Alcohol Crossmatch 12/10/19 12/10/19 12/10/19 05:38 11:38 17:34 WBC RBC Hgb Hct MCH RDW Plt Count Lymph % (Auto) [place] % (Auto) [place] # Baso # Seg Neutrophils % Seg Neuts % (Manual) Lymphocytes % (Manual) Monocytes % (Manual) Seg Neutrophils # Seg Neutrophils # Man Lymphocytes # (Manual) Monocytes # (Manual) Eosinophils # (Manual) Basophils # (Manual) PT INR APTT ABG pH ABG pO2 ABG HCO3 ABG O2 Saturation ABG Base Excess ABG Hemoglobin Oxyhemoglobin Sodium Potassium Chloride Carbon Dioxide BUN Creatinine Glucose POC Glucose 115 H 112 H 130 H Lactic Acid Calcium Ionized Calcium Phosphorus Magnesium Total Bilirubin AST ALT Alkaline Phosphatase Ammonia Total Creatine Kinase CK-MB (CK-2) CK-MB (CK-2) Rel Index Total Protein Albumin Urine WBC (Auto) Vancomycin Trough Salicylates Acetaminophen Plasma/Serum Alcohol Crossmatch 12/11/19 12/11/19 12/11/19 00:20 05:31 12:22 WBC RBC Hgb Hct MCH RDW Plt Count Lymph % (Auto) [place] % (Auto) [place] # Baso # Seg Neutrophils % Seg Neuts % (Manual) Lymphocytes % (Manual) Monocytes % (Manual) Seg Neutrophils # Seg Neutrophils # Man Lymphocytes # (Manual) Monocytes # (Manual) Eosinophils # (Manual) Basophils # (Manual) PT INR APTT ABG pH ABG pO2 ABG HCO3 ABG O2 Saturation ABG Base Excess ABG Hemoglobin Oxyhemoglobin Sodium Potassium Chloride Carbon Dioxide BUN Creatinine Glucose POC Glucose 124 H 132 H 128 H Lactic Acid Calcium Ionized Calcium Phosphorus Magnesium Total Bilirubin AST ALT Alkaline Phosphatase Ammonia Total Creatine Kinase CK-MB (CK-2) CK-MB (CK-2) Rel Index Total Protein Albumin Urine WBC (Auto) Vancomycin Trough Salicylates Acetaminophen Plasma/Serum Alcohol Crossmatch 12/11/19 12/11/19 12/12/19 18:04 23:42 03:51 WBC RBC Hgb Hct MCH RDW Plt Count Lymph % (Auto) [place] % (Auto) [place] # Baso # Seg Neutrophils % Seg Neuts % (Manual) Lymphocytes % (Manual) Monocytes % (Manual) Seg Neutrophils # Seg Neutrophils # Man Lymphocytes # (Manual) Monocytes # (Manual) Eosinophils # (Manual) Basophils # (Manual) PT INR APTT ABG pH ABG pO2 ABG HCO3 ABG O2 Saturation ABG Base Excess ABG Hemoglobin Oxyhemoglobin Sodium 149 H Potassium Chloride Carbon Dioxide 20 L D BUN 77 H Creatinine 2.8 H Glucose POC Glucose 133 H 154 H Lactic Acid Calcium Ionized Calcium Phosphorus Magnesium Total Bilirubin AST ALT Alkaline Phosphatase Ammonia Total Creatine Kinase CK-MB (CK-2) CK-MB (CK-2) Rel Index Total Protein Albumin Urine WBC (Auto) Vancomycin Trough Salicylates Acetaminophen Plasma/Serum Alcohol Crossmatch 12/12/19 12/12/19 12/12/19 05:18 05:26 10:30 WBC 18.0 H RBC 2.51 L Hgb 6.8 L Hct 22.0 L MCH 27 L RDW 19.9 H Plt Count 582 H Lymph % (Auto) [place] % (Auto) [place] # Baso # Seg Neutrophils % Seg Neuts % (Manual) Lymphocytes % (Manual) Monocytes % (Manual) Seg Neutrophils # Seg Neutrophils # Man Lymphocytes # (Manual) Monocytes # (Manual) Eosinophils # (Manual) Basophils # (Manual) PT INR APTT ABG pH ABG pO2 ABG HCO3 ABG O2 Saturation ABG Base Excess ABG Hemoglobin Oxyhemoglobin Sodium Potassium Chloride Carbon Dioxide BUN Creatinine Glucose POC Glucose 135 H Lactic Acid Calcium Ionized Calcium Phosphorus Magnesium Total Bilirubin AST ALT Alkaline Phosphatase Ammonia Total Creatine Kinase CK-MB (CK-2) CK-MB (CK-2) Rel Index Total Protein Albumin Urine WBC (Auto) Vancomycin Trough Salicylates Acetaminophen Plasma/Serum Alcohol Crossmatch See Detail 12/12/19 12/12/19 12/12/19 11:44 18:10 23:21 WBC RBC Hgb Hct MCH RDW Plt Count Lymph % (Auto) [place] % (Auto) [place] # Baso # Seg Neutrophils % Seg Neuts % (Manual) Lymphocytes % (Manual) Monocytes % (Manual) Seg Neutrophils # Seg Neutrophils # Man Lymphocytes # (Manual) Monocytes # (Manual) Eosinophils # (Manual) Basophils # (Manual) PT INR APTT ABG pH ABG pO2 ABG HCO3 ABG O2 Saturation ABG Base Excess ABG Hemoglobin Oxyhemoglobin Sodium Potassium Chloride Carbon Dioxide BUN Creatinine Glucose POC Glucose 108 H 107 H 126 H Lactic Acid Calcium Ionized Calcium Phosphorus Magnesium Total Bilirubin AST ALT Alkaline Phosphatase Ammonia Total Creatine Kinase CK-MB (CK-2) CK-MB (CK-2) Rel Index Total Protein Albumin Urine WBC (Auto) Vancomycin Trough Salicylates Acetaminophen Plasma/Serum Alcohol Crossmatch 12/13/19 12/13/19 12/13/19 05:41 07:48 07:48 WBC 38.3 H RBC 2.37 L Hgb 6.3 L Hct 20.9 L MCH 27 L RDW 20.2 H Plt Count 546 H Lymph % (Auto) [place] % (Auto) [place] # Baso # Seg Neutrophils % Seg Neuts % (Manual) 93.0 H Lymphocytes % (Manual) 1.0 L Monocytes % (Manual) Seg Neutrophils # Seg Neutrophils # Man 35.6 H Lymphocytes # (Manual) 0.4 L Monocytes # (Manual) Eosinophils # (Manual) Basophils # (Manual) 0.4 H PT INR APTT ABG pH ABG pO2 ABG HCO3 ABG O2 Saturation ABG Base Excess ABG Hemoglobin Oxyhemoglobin Sodium 152 H Potassium 3.1 L D Chloride 111.9 H Carbon Dioxide 21 L BUN 53 H Creatinine 1.9 H Glucose 141 H POC Glucose 128 H Lactic Acid Calcium Ionized Calcium Phosphorus Magnesium Total Bilirubin AST ALT Alkaline Phosphatase 316 H Ammonia Total Creatine Kinase CK-MB (CK-2) CK-MB (CK-2) Rel Index Total Protein Albumin 2.4 L Urine WBC (Auto) Vancomycin Trough Salicylates Acetaminophen Plasma/Serum Alcohol Crossmatch 12/13/19 12/13/19 12/14/19 18:17 23:19 05:36 WBC RBC Hgb Hct MCH RDW Plt Count Lymph % (Auto) [place] % (Auto) [place] # Baso # Seg Neutrophils % Seg Neuts % (Manual) Lymphocytes % (Manual) Monocytes % (Manual) Seg Neutrophils # Seg Neutrophils # Man Lymphocytes # (Manual) Monocytes # (Manual) Eosinophils # (Manual) Basophils # (Manual) PT INR APTT ABG pH ABG pO2 ABG HCO3 ABG O2 Saturation ABG Base Excess ABG Hemoglobin Oxyhemoglobin Sodium Potassium Chloride Carbon Dioxide BUN Creatinine Glucose POC Glucose 141 H 158 H 182 H Lactic Acid Calcium Ionized Calcium Phosphorus Magnesium Total Bilirubin AST ALT Alkaline Phosphatase Ammonia Total Creatine Kinase CK-MB (CK-2) CK-MB (CK-2) Rel Index Total Protein Albumin Urine WBC (Auto) Vancomycin Trough Salicylates Acetaminophen Plasma/Serum Alcohol Crossmatch 12/14/19 12/14/19 12/14/19 08:48 08:48 10:31 WBC 33.3 H RBC 2.70 L Hgb 7.9 L 8.0 L Hct 25.3 L 24.0 L MCH RDW 19.2 H Plt Count 476 H Lymph % (Auto) [place] % (Auto) [place] # Baso # Seg Neutrophils % Seg Neuts % (Manual) Lymphocytes % (Manual) Monocytes % (Manual) Seg Neutrophils # Seg Neutrophils # Man Lymphocytes # (Manual) Monocytes # (Manual) Eosinophils # (Manual) Basophils # (Manual) PT INR APTT ABG pH ABG pO2 ABG HCO3 ABG O2 Saturation ABG Base Excess ABG Hemoglobin Oxyhemoglobin Sodium 153 H Potassium 2.5 L* Chloride 114.9 H Carbon Dioxide 20 L BUN 38 H Creatinine 1.4 H Glucose 177 H POC Glucose Lactic Acid Calcium Ionized Calcium Phosphorus Magnesium Total Bilirubin AST ALT Alkaline Phosphatase Ammonia Total Creatine Kinase CK-MB (CK-2) CK-MB (CK-2) Rel Index Total Protein Albumin Urine WBC (Auto) Vancomycin Trough Salicylates Acetaminophen Plasma/Serum Alcohol Crossmatch 12/14/19 12/14/19 12/14/19 12:57 16:15 17:50 WBC RBC Hgb Hct MCH RDW Plt Count Lymph % (Auto) [place] % (Auto) [place] # Baso # Seg Neutrophils % Seg Neuts % (Manual) Lymphocytes % (Manual) Monocytes % (Manual) Seg Neutrophils # Seg Neutrophils # Man Lymphocytes # (Manual) Monocytes # (Manual) Eosinophils # (Manual) Basophils # (Manual) PT INR APTT ABG pH ABG pO2 73.6 L ABG HCO3 ABG O2 Saturation ABG Base Excess ABG Hemoglobin 7.6 L Oxyhemoglobin 94.0 L Sodium Potassium Chloride Carbon Dioxide BUN Creatinine Glucose POC Glucose 174 H 150 H Lactic Acid Calcium Ionized Calcium Phosphorus Magnesium Total Bilirubin AST ALT Alkaline Phosphatase Ammonia Total Creatine Kinase CK-MB (CK-2) CK-MB (CK-2) Rel Index Total Protein Albumin Urine WBC (Auto) Vancomycin Trough Salicylates Acetaminophen Plasma/Serum Alcohol Crossmatch 12/15/19 12/15/19 12/15/19 00:28 05:27 07:23 WBC 30.0 H RBC 3.11 L Hgb 8.6 L Hct 27.7 L MCH RDW 20.0 H Plt Count 473 H Lymph % (Auto) [place] % (Auto) [place] # Baso # Seg Neutrophils % Seg Neuts % (Manual) Lymphocytes % (Manual) Monocytes % (Manual) Seg Neutrophils # Seg Neutrophils # Man Lymphocytes # (Manual) Monocytes # (Manual) Eosinophils # (Manual) Basophils # (Manual) PT INR APTT ABG pH ABG pO2 ABG HCO3 ABG O2 Saturation ABG Base Excess ABG Hemoglobin Oxyhemoglobin Sodium Potassium Chloride Carbon Dioxide BUN Creatinine Glucose POC Glucose 167 H 148 H Lactic Acid Calcium Ionized Calcium Phosphorus Magnesium Total Bilirubin AST ALT Alkaline Phosphatase Ammonia Total Creatine Kinase CK-MB (CK-2) CK-MB (CK-2) Rel Index Total Protein Albumin Urine WBC (Auto) Vancomycin Trough Salicylates Acetaminophen Plasma/Serum Alcohol Crossmatch 12/15/19 12/15/19 12/15/19 07:23 12:21 17:41 WBC RBC Hgb Hct MCH RDW Plt Count Lymph % (Auto) [place] % (Auto) [place] # Baso # Seg Neutrophils % Seg Neuts % (Manual) Lymphocytes % (Manual) Monocytes % (Manual) Seg Neutrophils # Seg Neutrophils # Man Lymphocytes # (Manual) Monocytes # (Manual) Eosinophils # (Manual) Basophils # (Manual) PT INR APTT ABG pH ABG pO2 ABG HCO3 ABG O2 Saturation ABG Base Excess ABG Hemoglobin Oxyhemoglobin Sodium 147 H Potassium 3.5 L D Chloride 111.2 H Carbon Dioxide 19 L BUN 29 H Creatinine Glucose 126 H POC Glucose 154 H 144 H Lactic Acid Calcium Ionized Calcium Phosphorus Magnesium Total Bilirubin AST ALT Alkaline Phosphatase Ammonia Total Creatine Kinase CK-MB (CK-2) CK-MB (CK-2) Rel Index Total Protein Albumin Urine WBC (Auto) Vancomycin Trough Salicylates Acetaminophen Plasma/Serum Alcohol Crossmatch 12/16/19 12/16/19 12/16/19 00:22 05:30 05:44 WBC 30.8 H RBC 2.58 L Hgb 7.1 L Hct 22.7 L MCH RDW 19.6 H Plt Count 451 H Lymph % (Auto) [place] % (Auto) [place] # Baso # Seg Neutrophils % Seg Neuts % (Manual) Lymphocytes % (Manual) Monocytes % (Manual) Seg Neutrophils # Seg Neutrophils # Man Lymphocytes # (Manual) Monocytes # (Manual) Eosinophils # (Manual) Basophils # (Manual) PT INR APTT ABG pH ABG pO2 ABG HCO3 ABG O2 Saturation ABG Base Excess ABG Hemoglobin Oxyhemoglobin Sodium Potassium Chloride Carbon Dioxide BUN Creatinine Glucose POC Glucose 139 H 126 H Lactic Acid Calcium Ionized Calcium Phosphorus Magnesium Total Bilirubin AST ALT Alkaline Phosphatase Ammonia Total Creatine Kinase CK-MB (CK-2) CK-MB (CK-2) Rel Index Total Protein Albumin Urine WBC (Auto) Vancomycin Trough Salicylates Acetaminophen Plasma/Serum Alcohol Crossmatch 12/16/19 12/16/19 12/16/19 05:44 11:48 17:37 WBC RBC Hgb Hct MCH RDW Plt Count Lymph % (Auto) [place] % (Auto) [place] # Baso # Seg Neutrophils % Seg Neuts % (Manual) Lymphocytes % (Manual) Monocytes % (Manual) Seg Neutrophils # Seg Neutrophils # Man Lymphocytes # (Manual) Monocytes # (Manual) Eosinophils # (Manual) Basophils # (Manual) PT INR APTT ABG pH ABG pO2 ABG HCO3 ABG O2 Saturation ABG Base Excess ABG Hemoglobin Oxyhemoglobin Sodium Potassium 3.4 L Chloride 109.2 H Carbon Dioxide 19 L BUN 27 H Creatinine Glucose 124 H POC Glucose 125 H 148 H Lactic Acid Calcium Ionized Calcium Phosphorus Magnesium Total Bilirubin AST ALT Alkaline Phosphatase Ammonia Total Creatine Kinase CK-MB (CK-2) CK-MB (CK-2) Rel Index Total Protein Albumin Urine WBC (Auto) Vancomycin Trough Salicylates Acetaminophen Plasma/Serum Alcohol Crossmatch 12/16/19 12/17/19 12/17/19 23:43 05:28 12:47 WBC RBC Hgb Hct MCH RDW Plt Count Lymph % (Auto) [place] % (Auto) [place] # Baso # Seg Neutrophils % Seg Neuts % (Manual) Lymphocytes % (Manual) Monocytes % (Manual) Seg Neutrophils # Seg Neutrophils # Man Lymphocytes # (Manual) Monocytes # (Manual) Eosinophils # (Manual) Basophils # (Manual) PT INR APTT ABG pH ABG pO2 ABG HCO3 ABG O2 Saturation ABG Base Excess ABG Hemoglobin Oxyhemoglobin Sodium Potassium Chloride Carbon Dioxide BUN Creatinine Glucose POC Glucose 142 H 140 H 125 H Lactic Acid Calcium Ionized Calcium Phosphorus Magnesium Total Bilirubin AST ALT Alkaline Phosphatase Ammonia Total Creatine Kinase CK-MB (CK-2) CK-MB (CK-2) Rel Index Total Protein Albumin Urine WBC (Auto) Vancomycin Trough Salicylates Acetaminophen Plasma/Serum Alcohol Crossmatch 12/17/19 12/17/19 12/17/19 17:05 18:00 Unknown WBC RBC Hgb Hct MCH RDW Plt Count Lymph % (Auto) [place] % (Auto) [place] # Baso # Seg Neutrophils % Seg Neuts % (Manual) Lymphocytes % (Manual) Monocytes % (Manual) Seg Neutrophils # Seg Neutrophils # Man Lymphocytes # (Manual) Monocytes # (Manual) Eosinophils # (Manual) Basophils # (Manual) PT INR APTT ABG pH ABG pO2 68.1 L ABG HCO3 ABG O2 Saturation 93.7 L ABG Base Excess ABG Hemoglobin 5.0 L Oxyhemoglobin 91.7 L Sodium Potassium Chloride Carbon Dioxide BUN Creatinine Glucose POC Glucose 140 H Lactic Acid Calcium Ionized Calcium Phosphorus Magnesium Total Bilirubin AST ALT Alkaline Phosphatase Ammonia Total Creatine Kinase CK-MB (CK-2) CK-MB (CK-2) Rel Index Total Protein Albumin Urine WBC (Auto) Vancomycin Trough Salicylates Acetaminophen Plasma/Serum Alcohol Crossmatch 12/18/19 12/18/19 12/18/19 00:16 04:53 04:53 WBC 28.6 H RBC 2.27 L Hgb 6.3 L Hct 19.5 L* MCH RDW 20.0 H Plt Count 497 H Lymph % (Auto) [place] % (Auto) [place] # Baso # Seg Neutrophils % Seg Neuts % (Manual) Lymphocytes % (Manual) Monocytes % (Manual) Seg Neutrophils # Seg Neutrophils # Man Lymphocytes # (Manual) Monocytes # (Manual) Eosinophils # (Manual) Basophils # (Manual) PT INR APTT ABG pH ABG pO2 ABG HCO3 ABG O2 Saturation ABG Base Excess ABG Hemoglobin Oxyhemoglobin Sodium Potassium Chloride 107.9 H Carbon Dioxide 20 L BUN 27 H Creatinine 0.6 L Glucose 116 H POC Glucose 123 H Lactic Acid Calcium Ionized Calcium Phosphorus Magnesium Total Bilirubin AST ALT Alkaline Phosphatase Ammonia Total Creatine Kinase CK-MB (CK-2) CK-MB (CK-2) Rel Index Total Protein Albumin Urine WBC (Auto) Vancomycin Trough Salicylates Acetaminophen Plasma/Serum Alcohol Crossmatch 12/18/19 12/18/19 12/18/19 06:38 11:22 12:08 WBC RBC Hgb Hct MCH RDW Plt Count Lymph % (Auto) [place] % (Auto) [place] # Baso # Seg Neutrophils % Seg Neuts % (Manual) Lymphocytes % (Manual) Monocytes % (Manual) Seg Neutrophils # Seg Neutrophils # Man Lymphocytes # (Manual) Monocytes # (Manual) Eosinophils # (Manual) Basophils # (Manual) PT INR APTT ABG pH ABG pO2 ABG HCO3 ABG O2 Saturation ABG Base Excess ABG Hemoglobin Oxyhemoglobin Sodium Potassium Chloride Carbon Dioxide BUN Creatinine Glucose POC Glucose 120 H 127 H Lactic Acid Calcium Ionized Calcium Phosphorus Magnesium Total Bilirubin AST ALT Alkaline Phosphatase Ammonia Total Creatine Kinase CK-MB (CK-2) CK-MB (CK-2) Rel Index Total Protein Albumin Urine WBC (Auto) Vancomycin Trough Salicylates Acetaminophen Plasma/Serum Alcohol Crossmatch See Detail 12/18/19 12/18/19 12/18/19 14:05 17:49 23:53 WBC RBC Hgb Hct MCH RDW Plt Count Lymph % (Auto) [place] % (Auto) [place] # Baso # Seg Neutrophils % Seg Neuts % (Manual) Lymphocytes % (Manual) Monocytes % (Manual) Seg Neutrophils # Seg Neutrophils # Man Lymphocytes # (Manual) Monocytes # (Manual) Eosinophils # (Manual) Basophils # (Manual) PT INR APTT ABG pH 7.267 L ABG pO2 69.8 L ABG HCO3 ABG O2 Saturation 88.4 L ABG Base Excess ABG Hemoglobin 7.1 L Oxyhemoglobin 86.4 L Sodium Potassium Chloride Carbon Dioxide BUN Creatinine Glucose POC Glucose 157 H 128 H Lactic Acid Calcium Ionized Calcium Phosphorus Magnesium Total Bilirubin AST ALT Alkaline Phosphatase Ammonia Total Creatine Kinase CK-MB (CK-2) CK-MB (CK-2) Rel Index Total Protein Albumin Urine WBC (Auto) Vancomycin Trough Salicylates Acetaminophen Plasma/Serum Alcohol Crossmatch 12/19/19 12/19/19 12/19/19 03:37 03:37 05:25 WBC 31.3 H RBC 2.60 L Hgb 7.6 L Hct 23.0 L MCH RDW 19.4 H Plt Count 530 H Lymph % (Auto) [place] % (Auto) [place] # Baso # Seg Neutrophils % Seg Neuts % (Manual) Lymphocytes % (Manual) Monocytes % (Manual) Seg Neutrophils # Seg Neutrophils # Man Lymphocytes # (Manual) Monocytes # (Manual) Eosinophils # (Manual) Basophils # (Manual) PT INR APTT ABG pH ABG pO2 ABG HCO3 ABG O2 Saturation ABG Base Excess ABG Hemoglobin Oxyhemoglobin Sodium Potassium Chloride Carbon Dioxide 18 L BUN 36 H Creatinine Glucose 111 H POC Glucose 123 H Lactic Acid Calcium Ionized Calcium Phosphorus Magnesium Total Bilirubin AST ALT Alkaline Phosphatase Ammonia Total Creatine Kinase CK-MB (CK-2) CK-MB (CK-2) Rel Index Total Protein Albumin Urine WBC (Auto) Vancomycin Trough Salicylates Acetaminophen Plasma/Serum Alcohol Crossmatch 12/19/19 12/19/19 12/20/19 12:59 18:33 00:00 WBC RBC Hgb Hct MCH RDW Plt Count Lymph % (Auto) [place] % (Auto) [place] # Baso # Seg Neutrophils % Seg Neuts % (Manual) Lymphocytes % (Manual) Monocytes % (Manual) Seg Neutrophils # Seg Neutrophils # Man Lymphocytes # (Manual) Monocytes # (Manual) Eosinophils # (Manual) Basophils # (Manual) PT INR APTT ABG pH ABG pO2 ABG HCO3 ABG O2 Saturation ABG Base Excess ABG Hemoglobin Oxyhemoglobin Sodium Potassium Chloride Carbon Dioxide BUN Creatinine Glucose POC Glucose 130 H 118 H 135 H Lactic Acid Calcium Ionized Calcium Phosphorus Magnesium Total Bilirubin AST ALT Alkaline Phosphatase Ammonia Total Creatine Kinase CK-MB (CK-2) CK-MB (CK-2) Rel Index Total Protein Albumin Urine WBC (Auto) Vancomycin Trough Salicylates Acetaminophen Plasma/Serum Alcohol Crossmatch 12/20/19 12/20/19 12/20/19 05:46 12:31 18:07 WBC RBC Hgb Hct MCH RDW Plt Count Lymph % (Auto) [place] % (Auto) [place] # Baso # Seg Neutrophils % Seg Neuts % (Manual) Lymphocytes % (Manual) Monocytes % (Manual) Seg Neutrophils # Seg Neutrophils # Man Lymphocytes # (Manual) Monocytes # (Manual) Eosinophils # (Manual) Basophils # (Manual) PT INR APTT ABG pH ABG pO2 ABG HCO3 ABG O2 Saturation ABG Base Excess ABG Hemoglobin Oxyhemoglobin Sodium Potassium Chloride Carbon Dioxide BUN Creatinine Glucose POC Glucose 131 H 128 H 134 H Lactic Acid Calcium Ionized Calcium Phosphorus Magnesium Total Bilirubin AST ALT Alkaline Phosphatase Ammonia Total Creatine Kinase CK-MB (CK-2) CK-MB (CK-2) Rel Index Total Protein Albumin Urine WBC (Auto) Vancomycin Trough Salicylates Acetaminophen Plasma/Serum Alcohol Crossmatch 12/21/19 12/21/19 12/21/19 03:28 03:28 07:21 WBC 29.4 H RBC 2.30 L Hgb 6.8 L Hct 20.2 L MCH RDW 20.2 H Plt Count 746 H Lymph % (Auto) [place] % (Auto) [place] # Baso # Seg Neutrophils % Seg Neuts % (Manual) 85.0 H Lymphocytes % (Manual) 8.0 L Monocytes % (Manual) Seg Neutrophils # Seg Neutrophils # Man 25.0 H Lymphocytes # (Manual) Monocytes # (Manual) 1.5 H Eosinophils # (Manual) 0.6 H Basophils # (Manual) PT INR APTT ABG pH ABG pO2 ABG HCO3 ABG O2 Saturation ABG Base Excess ABG Hemoglobin Oxyhemoglobin Sodium Potassium Chloride Carbon Dioxide 17 L BUN 57 H Creatinine 1.4 H D Glucose POC Glucose 124 H Lactic Acid Calcium Ionized Calcium Phosphorus Magnesium Total Bilirubin AST ALT Alkaline Phosphatase Ammonia Total Creatine Kinase CK-MB (CK-2) CK-MB (CK-2) Rel Index Total Protein Albumin Urine WBC (Auto) Vancomycin Trough Salicylates Acetaminophen Plasma/Serum Alcohol Crossmatch 12/21/19 12/21/19 12/21/19 08:56 12:06 14:53 WBC RBC Hgb 7.2 L Hct 22.9 L MCH RDW Plt Count Lymph % (Auto) [place] % (Auto) [place] # Baso # Seg Neutrophils % Seg Neuts % (Manual) Lymphocytes % (Manual) Monocytes % (Manual) Seg Neutrophils # Seg Neutrophils # Man Lymphocytes # (Manual) Monocytes # (Manual) Eosinophils # (Manual) Basophils # (Manual) PT INR APTT ABG pH ABG pO2 ABG HCO3 ABG O2 Saturation ABG Base Excess ABG Hemoglobin Oxyhemoglobin Sodium Potassium Chloride Carbon Dioxide BUN Creatinine Glucose POC Glucose 116 H Lactic Acid Calcium Ionized Calcium Phosphorus Magnesium Total Bilirubin AST ALT Alkaline Phosphatase Ammonia Total Creatine Kinase CK-MB (CK-2) CK-MB (CK-2) Rel Index Total Protein Albumin Urine WBC (Auto) Vancomycin Trough 33.8 H Salicylates Acetaminophen Plasma/Serum Alcohol Crossmatch 12/21/19 12/21/19 12/21/19 14:54 17:27 23:49 WBC RBC Hgb Hct MCH RDW Plt Count Lymph % (Auto) [place] % (Auto) [place] # Baso # Seg Neutrophils % Seg Neuts % (Manual) Lymphocytes % (Manual) Monocytes % (Manual) Seg Neutrophils # Seg Neutrophils # Man Lymphocytes # (Manual) Monocytes # (Manual) Eosinophils # (Manual) Basophils # (Manual) PT INR APTT ABG pH ABG pO2 ABG HCO3 ABG O2 Saturation ABG Base Excess ABG Hemoglobin Oxyhemoglobin Sodium Potassium Chloride Carbon Dioxide BUN Creatinine Glucose POC Glucose 145 H 127 H Lactic Acid Calcium Ionized Calcium Phosphorus Magnesium Total Bilirubin AST ALT Alkaline Phosphatase Ammonia Total Creatine Kinase CK-MB (CK-2) CK-MB (CK-2) Rel Index Total Protein Albumin Urine WBC (Auto) Vancomycin Trough Salicylates Acetaminophen Plasma/Serum Alcohol Crossmatch See Detail 12/22/19 12/22/19 12/22/19 04:43 05:56 08:40 WBC RBC Hgb Hct MCH RDW Plt Count Lymph % (Auto) [place] % (Auto) [place] # Baso # Seg Neutrophils % Seg Neuts % (Manual) Lymphocytes % (Manual) Monocytes % (Manual) Seg Neutrophils # Seg Neutrophils # Man Lymphocytes # (Manual) Monocytes # (Manual) Eosinophils # (Manual) Basophils # (Manual) PT INR APTT ABG pH ABG pO2 75.6 L ABG HCO3 ABG O2 Saturation ABG Base Excess -2.6 L ABG Hemoglobin 6.8 L Oxyhemoglobin 94.6 L Sodium Potassium Chloride Carbon Dioxide 17 L BUN 60 H Creatinine 1.4 H Glucose 126 H POC Glucose 153 H Lactic Acid Calcium Ionized Calcium Phosphorus Magnesium Total Bilirubin AST ALT Alkaline Phosphatase Ammonia Total Creatine Kinase CK-MB (CK-2) CK-MB (CK-2) Rel Index Total Protein Albumin Urine WBC (Auto) Vancomycin Trough Salicylates Acetaminophen Plasma/Serum Alcohol Crossmatch 12/22/19 12/22/19 12/23/19 12:07 17:49 04:30 WBC 22.4 H RBC 2.68 L Hgb 7.6 L Hct 22.9 L MCH RDW 19.9 H Plt Count 998 H Lymph % (Auto) [place] % (Auto) [place] # Baso # Seg Neutrophils % Seg Neuts % (Manual) 88.0 H Lymphocytes % (Manual) 2.0 L Monocytes % (Manual) 9.0 H Seg Neutrophils # Seg Neutrophils # Man 19.7 H Lymphocytes # (Manual) 0.4 L Monocytes # (Manual) 2.0 H Eosinophils # (Manual) Basophils # (Manual) PT INR APTT ABG pH ABG pO2 ABG HCO3 ABG O2 Saturation ABG Base Excess ABG Hemoglobin Oxyhemoglobin Sodium Potassium Chloride Carbon Dioxide BUN Creatinine Glucose POC Glucose 140 H 116 H Lactic Acid Calcium Ionized Calcium Phosphorus Magnesium Total Bilirubin AST ALT Alkaline Phosphatase Ammonia Total Creatine Kinase CK-MB (CK-2) CK-MB (CK-2) Rel Index Total Protein Albumin Urine WBC (Auto) Vancomycin Trough Salicylates Acetaminophen Plasma/Serum Alcohol Crossmatch 12/23/19 12/23/19 12/23/19 04:30 12:00 18:06 WBC RBC Hgb Hct MCH RDW Plt Count Lymph % (Auto) [place] % (Auto) [place] # Baso # Seg Neutrophils % Seg Neuts % (Manual) Lymphocytes % (Manual) Monocytes % (Manual) Seg Neutrophils # Seg Neutrophils # Man Lymphocytes # (Manual) Monocytes # (Manual) Eosinophils # (Manual) Basophils # (Manual) PT INR APTT ABG pH ABG pO2 ABG HCO3 ABG O2 Saturation ABG Base Excess ABG Hemoglobin Oxyhemoglobin Sodium Potassium 5.2 H Chloride Carbon Dioxide 21 L BUN 69 H Creatinine 1.5 H Glucose 117 H POC Glucose 128 H 138 H Lactic Acid Calcium Ionized Calcium Phosphorus Magnesium Total Bilirubin AST ALT Alkaline Phosphatase Ammonia Total Creatine Kinase CK-MB (CK-2) CK-MB (CK-2) Rel Index Total Protein Albumin Urine WBC (Auto) Vancomycin Trough Salicylates Acetaminophen Plasma/Serum Alcohol Crossmatch 12/23/19 12/24/19 12/24/19 23:46 04:31 05:08 WBC RBC Hgb Hct MCH RDW Plt Count Lymph % (Auto) [place] % (Auto) [place] # Baso # Seg Neutrophils % Seg Neuts % (Manual) Lymphocytes % (Manual) Monocytes % (Manual) Seg Neutrophils # Seg Neutrophils # Man Lymphocytes # (Manual) Monocytes # (Manual) Eosinophils # (Manual) Basophils # (Manual) PT INR APTT ABG pH ABG pO2 ABG HCO3 ABG O2 Saturation ABG Base Excess ABG Hemoglobin Oxyhemoglobin Sodium Potassium 5.3 H Chloride 107.6 H Carbon Dioxide 20 L BUN 72 H Creatinine 1.6 H Glucose 120 H POC Glucose 120 H 140 H Lactic Acid Calcium Ionized Calcium Phosphorus Magnesium Total Bilirubin AST ALT Alkaline Phosphatase Ammonia Total Creatine Kinase CK-MB (CK-2) CK-MB (CK-2) Rel Index Total Protein Albumin Urine WBC (Auto) Vancomycin Trough Salicylates Acetaminophen Plasma/Serum Alcohol Crossmatch 12/24/19 12/24/19 12/25/19 11:58 17:49 03:47 WBC 36.2 H RBC 2.92 L Hgb 8.4 L Hct 26.1 L MCH RDW 20.2 H Plt Count 942 H Lymph % (Auto) [place] % (Auto) [place] # Baso # Seg Neutrophils % Seg Neuts % (Manual) 97.5 H Lymphocytes % (Manual) 1.0 L Monocytes % (Manual) Seg Neutrophils # Seg Neutrophils # Man 35.3 H Lymphocytes # (Manual) 0.4 L Monocytes # (Manual) Eosinophils # (Manual) Basophils # (Manual) PT INR APTT ABG pH ABG pO2 ABG HCO3 ABG O2 Saturation ABG Base Excess ABG Hemoglobin Oxyhemoglobin Sodium Potassium Chloride Carbon Dioxide BUN Creatinine Glucose POC Glucose 146 H 131 H Lactic Acid Calcium Ionized Calcium Phosphorus Magnesium Total Bilirubin AST ALT Alkaline Phosphatase Ammonia Total Creatine Kinase CK-MB (CK-2) CK-MB (CK-2) Rel Index Total Protein Albumin Urine WBC (Auto) Vancomycin Trough Salicylates Acetaminophen Plasma/Serum Alcohol Crossmatch 12/25/19 12/25/19 12/25/19 03:47 05:30 12:23 WBC RBC Hgb Hct MCH RDW Plt Count Lymph % (Auto) [place] % (Auto) [place] # Baso # Seg Neutrophils % Seg Neuts % (Manual) Lymphocytes % (Manual) Monocytes % (Manual) Seg Neutrophils # Seg Neutrophils # Man Lymphocytes # (Manual) Monocytes # (Manual) Eosinophils # (Manual) Basophils # (Manual) PT INR APTT ABG pH ABG pO2 ABG HCO3 ABG O2 Saturation ABG Base Excess ABG Hemoglobin Oxyhemoglobin Sodium Potassium Chloride Carbon Dioxide 15 L BUN 70 H Creatinine 1.7 H Glucose 153 H POC Glucose 169 H 135 H Lactic Acid Calcium Ionized Calcium Phosphorus Magnesium Total Bilirubin AST ALT Alkaline Phosphatase Ammonia Total Creatine Kinase CK-MB (CK-2) CK-MB (CK-2) Rel Index Total Protein Albumin Urine WBC (Auto) Vancomycin Trough Salicylates Acetaminophen Plasma/Serum Alcohol Crossmatch 12/25/19 12/25/19 12/26/19 17:37 23:29 09:47 WBC 22.1 H RBC 2.83 L Hgb 7.9 L Hct 25.5 L MCH RDW 20.0 H Plt Count 894 H Lymph % (Auto) [place] % (Auto) [place] # Baso # Seg Neutrophils % Seg Neuts % (Manual) Lymphocytes % (Manual) Monocytes % (Manual) Seg Neutrophils # Seg Neutrophils # Man Lymphocytes # (Manual) Monocytes # (Manual) Eosinophils # (Manual) Basophils # (Manual) PT INR APTT ABG pH ABG pO2 ABG HCO3 ABG O2 Saturation ABG Base Excess ABG Hemoglobin Oxyhemoglobin Sodium Potassium Chloride Carbon Dioxide BUN Creatinine Glucose POC Glucose 120 H 140 H Lactic Acid Calcium Ionized Calcium Phosphorus Magnesium Total Bilirubin AST ALT Alkaline Phosphatase Ammonia Total Creatine Kinase CK-MB (CK-2) CK-MB (CK-2) Rel Index Total Protein Albumin Urine WBC (Auto) Vancomycin Trough Salicylates Acetaminophen Plasma/Serum Alcohol Crossmatch 12/26/19 12/26/19 12/26/19 09:47 11:46 17:52 WBC RBC Hgb Hct MCH RDW Plt Count Lymph % (Auto) [place] % (Auto) [place] # Baso # Seg Neutrophils % Seg Neuts % (Manual) Lymphocytes % (Manual) Monocytes % (Manual) Seg Neutrophils # Seg Neutrophils # Man Lymphocytes # (Manual) Monocytes # (Manual) Eosinophils # (Manual) Basophils # (Manual) PT INR APTT ABG pH ABG pO2 ABG HCO3 ABG O2 Saturation ABG Base Excess ABG Hemoglobin Oxyhemoglobin Sodium Potassium Chloride Carbon Dioxide 18 L BUN 65 H Creatinine 1.4 H Glucose 132 H POC Glucose 110 H 145 H Lactic Acid Calcium Ionized Calcium Phosphorus Magnesium Total Bilirubin AST ALT Alkaline Phosphatase Ammonia Total Creatine Kinase CK-MB (CK-2) CK-MB (CK-2) Rel Index Total Protein Albumin Urine WBC (Auto) Vancomycin Trough Salicylates Acetaminophen Plasma/Serum Alcohol Crossmatch 12/27/19 12/27/19 12/27/19 00:01 03:42 03:42 WBC 18.0 H RBC 2.86 L Hgb 8.0 L Hct 25.2 L MCH RDW 19.2 H Plt Count 873 H Lymph % (Auto) 8.4 L [place] % (Auto) 7.5 H [place]an # 1.4 H Baso # 0.2 H Seg Neutrophils % 82.2 H Seg Neuts % (Manual) Lymphocytes % (Manual) Monocytes % (Manual) Seg Neutrophils # 14.8 H Seg Neutrophils # Man Lymphocytes # (Manual) Monocytes # (Manual) Eosinophils # (Manual) Basophils # (Manual) PT INR APTT ABG pH ABG pO2 ABG HCO3 ABG O2 Saturation ABG Base Excess ABG Hemoglobin Oxyhemoglobin Sodium Potassium Chloride Carbon Dioxide BUN 73 H Creatinine 1.4 H Glucose 119 H POC Glucose 124 H Lactic Acid Calcium Ionized Calcium Phosphorus Magnesium Total Bilirubin AST ALT Alkaline Phosphatase Ammonia Total Creatine Kinase CK-MB (CK-2) CK-MB (CK-2) Rel Index Total Protein Albumin Urine WBC (Auto) Vancomycin Trough Salicylates Acetaminophen Plasma/Serum Alcohol Crossmatch 12/27/19 12/27/19 12/27/19 05:45 11:45 17:29 WBC RBC Hgb Hct MCH RDW Plt Count Lymph % (Auto) [place] % (Auto) [place] # Baso # Seg Neutrophils % Seg Neuts % (Manual) Lymphocytes % (Manual) Monocytes % (Manual) Seg Neutrophils # Seg Neutrophils # Man Lymphocytes # (Manual) Monocytes # (Manual) Eosinophils # (Manual) Basophils # (Manual) PT INR APTT ABG pH ABG pO2 ABG HCO3 ABG O2 Saturation ABG Base Excess ABG Hemoglobin Oxyhemoglobin Sodium Potassium Chloride Carbon Dioxide BUN Creatinine Glucose POC Glucose 131 H 123 H 134 H Lactic Acid Calcium Ionized Calcium Phosphorus Magnesium Total Bilirubin AST ALT Alkaline Phosphatase Ammonia Total Creatine Kinase CK-MB (CK-2) CK-MB (CK-2) Rel Index Total Protein Albumin Urine WBC (Auto) Vancomycin Trough Salicylates Acetaminophen Plasma/Serum Alcohol Crossmatch 12/28/19 12/28/19 12/28/19 00:12 05:14 11:53 WBC RBC Hgb Hct MCH RDW Plt Count Lymph % (Auto) [place] % (Auto) [place] # Baso # Seg Neutrophils % Seg Neuts % (Manual) Lymphocytes % (Manual) Monocytes % (Manual) Seg Neutrophils # Seg Neutrophils # Man Lymphocytes # (Manual) Monocytes # (Manual) Eosinophils # (Manual) Basophils # (Manual) PT INR APTT ABG pH ABG pO2 ABG HCO3 ABG O2 Saturation ABG Base Excess ABG Hemoglobin Oxyhemoglobin Sodium Potassium Chloride Carbon Dioxide BUN Creatinine Glucose POC Glucose 138 H 130 H 146 H Lactic Acid Calcium Ionized Calcium Phosphorus Magnesium Total Bilirubin AST ALT Alkaline Phosphatase Ammonia Total Creatine Kinase CK-MB (CK-2) CK-MB (CK-2) Rel Index Total Protein Albumin Urine WBC (Auto) Vancomycin Trough Salicylates Acetaminophen Plasma/Serum Alcohol Crossmatch 12/28/19 12/29/19 12/29/19 17:39 00:01 18:11 WBC RBC Hgb Hct MCH RDW Plt Count Lymph % (Auto) [place] % (Auto) [place] # Baso # Seg Neutrophils % Seg Neuts % (Manual) Lymphocytes % (Manual) Monocytes % (Manual) Seg Neutrophils # Seg Neutrophils # Man Lymphocytes # (Manual) Monocytes # (Manual) Eosinophils # (Manual) Basophils # (Manual) PT INR APTT ABG pH ABG pO2 ABG HCO3 ABG O2 Saturation ABG Base Excess ABG Hemoglobin Oxyhemoglobin Sodium Potassium Chloride Carbon Dioxide BUN Creatinine Glucose POC Glucose 117 H 139 H 130 H Lactic Acid Calcium Ionized Calcium Phosphorus Magnesium Total Bilirubin AST ALT Alkaline Phosphatase Ammonia Total Creatine Kinase CK-MB (CK-2) CK-MB (CK-2) Rel Index Total Protein Albumin Urine WBC (Auto) Vancomycin Trough Salicylates Acetaminophen Plasma/Serum Alcohol Crossmatch 12/29/19 12/30/19 12/30/19 23:09 00:02 01:06 WBC 16.7 H RBC 2.91 L Hgb 8.2 L Hct 25.4 L MCH RDW 18.7 H Plt Count 708 H Lymph % (Auto) 9.4 L [place] % (Auto) [place] # 0.9 H Baso # Seg Neutrophils % 83.5 H Seg Neuts % (Manual) Lymphocytes % (Manual) Monocytes % (Manual) Seg Neutrophils # 14.0 H Seg Neutrophils # Man Lymphocytes # (Manual) Monocytes # (Manual) Eosinophils # (Manual) Basophils # (Manual) PT INR APTT ABG pH ABG pO2 ABG HCO3 ABG O2 Saturation ABG Base Excess ABG Hemoglobin Oxyhemoglobin Sodium Potassium Chloride Carbon Dioxide BUN Creatinine Glucose POC Glucose 120 H 114 H Lactic Acid Calcium Ionized Calcium Phosphorus Magnesium Total Bilirubin AST ALT Alkaline Phosphatase Ammonia Total Creatine Kinase CK-MB (CK-2) CK-MB (CK-2) Rel Index Total Protein Albumin Urine WBC (Auto) Vancomycin Trough Salicylates Acetaminophen Plasma/Serum Alcohol Crossmatch 12/30/19 12/30/19 12/30/19 01:06 04:23 05:18 WBC RBC Hgb Hct MCH RDW Plt Count Lymph % (Auto) [place] % (Auto) [place] # Baso # Seg Neutrophils % Seg Neuts % (Manual) Lymphocytes % (Manual) Monocytes % (Manual) Seg Neutrophils # Seg Neutrophils # Man Lymphocytes # (Manual) Monocytes # (Manual) Eosinophils # (Manual) Basophils # (Manual) PT INR APTT ABG pH ABG pO2 ABG HCO3 ABG O2 Saturation ABG Base Excess ABG Hemoglobin 8.3 L Oxyhemoglobin Sodium Potassium Chloride Carbon Dioxide BUN 70 H Creatinine Glucose 122 H POC Glucose 130 H Lactic Acid Calcium Ionized Calcium Phosphorus Magnesium Total Bilirubin AST ALT Alkaline Phosphatase Ammonia Total Creatine Kinase CK-MB (CK-2) CK-MB (CK-2) Rel Index Total Protein Albumin Urine WBC (Auto) Vancomycin Trough Salicylates Acetaminophen Plasma/Serum Alcohol Crossmatch 12/30/19 12/30/19 12/30/19 05:40 12:17 17:43 WBC RBC Hgb Hct MCH RDW Plt Count Lymph % (Auto) [place] % (Auto) [place] # Baso # Seg Neutrophils % Seg Neuts % (Manual) Lymphocytes % (Manual) Monocytes % (Manual) Seg Neutrophils # Seg Neutrophils # Man Lymphocytes # (Manual) Monocytes # (Manual) Eosinophils # (Manual) Basophils # (Manual) PT INR APTT ABG pH ABG pO2 ABG HCO3 ABG O2 Saturation ABG Base Excess ABG Hemoglobin Oxyhemoglobin Sodium Potassium Chloride Carbon Dioxide BUN Creatinine Glucose POC Glucose 135 H 132 H 118 H Lactic Acid Calcium Ionized Calcium Phosphorus Magnesium Total Bilirubin AST ALT Alkaline Phosphatase Ammonia Total Creatine Kinase CK-MB (CK-2) CK-MB (CK-2) Rel Index Total Protein Albumin Urine WBC (Auto) Vancomycin Trough Salicylates Acetaminophen Plasma/Serum Alcohol Crossmatch 12/30/19 12/31/19 12/31/19 23:29 05:19 17:50 WBC RBC Hgb Hct MCH RDW Plt Count Lymph % (Auto) [place] % (Auto) [place] # Baso # Seg Neutrophils % Seg Neuts % (Manual) Lymphocytes % (Manual) Monocytes % (Manual) Seg Neutrophils # Seg Neutrophils # Man Lymphocytes # (Manual) Monocytes # (Manual) Eosinophils # (Manual) Basophils # (Manual) PT INR APTT ABG pH ABG pO2 ABG HCO3 ABG O2 Saturation ABG Base Excess ABG Hemoglobin Oxyhemoglobin Sodium Potassium Chloride Carbon Dioxide BUN Creatinine Glucose POC Glucose 114 H 109 H 116 H Lactic Acid Calcium Ionized Calcium Phosphorus Magnesium Total Bilirubin AST ALT Alkaline Phosphatase Ammonia Total Creatine Kinase CK-MB (CK-2) CK-MB (CK-2) Rel Index Total Protein Albumin Urine WBC (Auto) Vancomycin Trough Salicylates Acetaminophen Plasma/Serum Alcohol Crossmatch 01/01/20 01/01/20 01/01/20 00:10 05:19 12:02 WBC RBC Hgb Hct MCH RDW Plt Count Lymph % (Auto) [place] % (Auto) [place] # Baso # Seg Neutrophils % Seg Neuts % (Manual) Lymphocytes % (Manual) Monocytes % (Manual) Seg Neutrophils # Seg Neutrophils # Man Lymphocytes # (Manual) Monocytes # (Manual) Eosinophils # (Manual) Basophils # (Manual) PT INR APTT ABG pH ABG pO2 ABG HCO3 ABG O2 Saturation ABG Base Excess ABG Hemoglobin Oxyhemoglobin Sodium Potassium Chloride Carbon Dioxide BUN Creatinine Glucose POC Glucose 131 H 122 H 136 H Lactic Acid Calcium Ionized Calcium Phosphorus Magnesium Total Bilirubin AST ALT Alkaline Phosphatase Ammonia Total Creatine Kinase CK-MB (CK-2) CK-MB (CK-2) Rel Index Total Protein Albumin Urine WBC (Auto) Vancomycin Trough Salicylates Acetaminophen Plasma/Serum Alcohol Crossmatch 01/02/20 01/02/20 01/02/20 00:24 05:36 11:41 WBC RBC Hgb Hct MCH RDW Plt Count Lymph % (Auto) [place] % (Auto) [place] # Baso # Seg Neutrophils % Seg Neuts % (Manual) Lymphocytes % (Manual) Monocytes % (Manual) Seg Neutrophils # Seg Neutrophils # Man Lymphocytes # (Manual) Monocytes # (Manual) Eosinophils # (Manual) Basophils # (Manual) PT INR APTT ABG pH ABG pO2 ABG HCO3 ABG O2 Saturation ABG Base Excess ABG Hemoglobin Oxyhemoglobin Sodium Potassium Chloride Carbon Dioxide BUN Creatinine Glucose POC Glucose 119 H 109 H 125 H Lactic Acid Calcium Ionized Calcium Phosphorus Magnesium Total Bilirubin AST ALT Alkaline Phosphatase Ammonia Total Creatine Kinase CK-MB (CK-2) CK-MB (CK-2) Rel Index Total Protein Albumin Urine WBC (Auto) Vancomycin Trough Salicylates Acetaminophen Plasma/Serum Alcohol Crossmatch 01/02/20 01/03/20 01/03/20 17:49 05:29 12:13 WBC RBC Hgb Hct MCH RDW Plt Count Lymph % (Auto) [place] % (Auto) [place] # Baso # Seg Neutrophils % Seg Neuts % (Manual) Lymphocytes % (Manual) Monocytes % (Manual) Seg Neutrophils # Seg Neutrophils # Man Lymphocytes # (Manual) Monocytes # (Manual) Eosinophils # (Manual) Basophils # (Manual) PT INR APTT ABG pH ABG pO2 ABG HCO3 ABG O2 Saturation ABG Base Excess ABG Hemoglobin Oxyhemoglobin Sodium Potassium Chloride Carbon Dioxide BUN Creatinine Glucose POC Glucose 130 H 132 H 113 H Lactic Acid Calcium Ionized Calcium Phosphorus Magnesium Total Bilirubin AST ALT Alkaline Phosphatase Ammonia Total Creatine Kinase CK-MB (CK-2) CK-MB (CK-2) Rel Index Total Protein Albumin Urine WBC (Auto) Vancomycin Trough Salicylates Acetaminophen Plasma/Serum Alcohol Crossmatch 01/03/20 01/04/20 01/04/20 17:32 00:19 05:26 WBC RBC Hgb Hct MCH RDW Plt Count Lymph % (Auto) [place] % (Auto) [place] # Baso # Seg Neutrophils % Seg Neuts % (Manual) Lymphocytes % (Manual) Monocytes % (Manual) Seg Neutrophils # Seg Neutrophils # Man Lymphocytes # (Manual) Monocytes # (Manual) Eosinophils # (Manual) Basophils # (Manual) PT INR APTT ABG pH ABG pO2 ABG HCO3 ABG O2 Saturation ABG Base Excess ABG Hemoglobin Oxyhemoglobin Sodium Potassium Chloride Carbon Dioxide BUN Creatinine Glucose POC Glucose 127 H 141 H 129 H Lactic Acid Calcium Ionized Calcium Phosphorus Magnesium Total Bilirubin AST ALT Alkaline Phosphatase Ammonia Total Creatine Kinase CK-MB (CK-2) CK-MB (CK-2) Rel Index Total Protein Albumin Urine WBC (Auto) Vancomycin Trough Salicylates Acetaminophen Plasma/Serum Alcohol Crossmatch 01/04/20 01/04/20 01/05/20 11:39 17:29 05:22 WBC RBC Hgb Hct MCH RDW Plt Count Lymph % (Auto) [place] % (Auto) [place] # Baso # Seg Neutrophils % Seg Neuts % (Manual) Lymphocytes % (Manual) Monocytes % (Manual) Seg Neutrophils # Seg Neutrophils # Man Lymphocytes # (Manual) Monocytes # (Manual) Eosinophils # (Manual) Basophils # (Manual) PT INR APTT ABG pH ABG pO2 ABG HCO3 ABG O2 Saturation ABG Base Excess ABG Hemoglobin Oxyhemoglobin Sodium Potassium Chloride Carbon Dioxide BUN Creatinine Glucose POC Glucose 167 H 132 H 121 H Lactic Acid Calcium Ionized Calcium Phosphorus Magnesium Total Bilirubin AST ALT Alkaline Phosphatase Ammonia Total Creatine Kinase CK-MB (CK-2) CK-MB (CK-2) Rel Index Total Protein Albumin Urine WBC (Auto) Vancomycin Trough Salicylates Acetaminophen Plasma/Serum Alcohol Crossmatch 01/05/20 01/05/20 01/05/20 12:25 17:40 18:06 WBC RBC Hgb Hct MCH RDW Plt Count Lymph % (Auto) [place] % (Auto) [place] # Baso # Seg Neutrophils % Seg Neuts % (Manual) Lymphocytes % (Manual) Monocytes % (Manual) Seg Neutrophils # Seg Neutrophils # Man Lymphocytes # (Manual) Monocytes # (Manual) Eosinophils # (Manual) Basophils # (Manual) PT INR APTT ABG pH 7.472 H ABG pO2 99.2 H ABG HCO3 ABG O2 Saturation ABG Base Excess ABG Hemoglobin 7.8 L Oxyhemoglobin Sodium Potassium Chloride Carbon Dioxide BUN Creatinine Glucose POC Glucose 106 H 110 H Lactic Acid Calcium Ionized Calcium Phosphorus Magnesium Total Bilirubin AST ALT Alkaline Phosphatase Ammonia Total Creatine Kinase CK-MB (CK-2) CK-MB (CK-2) Rel Index Total Protein Albumin Urine WBC (Auto) Vancomycin Trough Salicylates Acetaminophen Plasma/Serum Alcohol Crossmatch 01/06/20 01/06/20 01/06/20 00:11 05:16 11:30 WBC RBC Hgb Hct MCH RDW Plt Count Lymph % (Auto) [place] % (Auto) [place] # Baso # Seg Neutrophils % Seg Neuts % (Manual) Lymphocytes % (Manual) Monocytes % (Manual) Seg Neutrophils # Seg Neutrophils # Man Lymphocytes # (Manual) Monocytes # (Manual) Eosinophils # (Manual) Basophils # (Manual) PT INR APTT ABG pH ABG pO2 ABG HCO3 ABG O2 Saturation ABG Base Excess ABG Hemoglobin Oxyhemoglobin Sodium Potassium Chloride Carbon Dioxide BUN Creatinine Glucose POC Glucose 108 H 124 H 125 H Lactic Acid Calcium Ionized Calcium Phosphorus Magnesium Total Bilirubin AST ALT Alkaline Phosphatase Ammonia Total Creatine Kinase CK-MB (CK-2) CK-MB (CK-2) Rel Index Total Protein Albumin Urine WBC (Auto) Vancomycin Trough Salicylates Acetaminophen Plasma/Serum Alcohol Crossmatch 01/06/20 01/06/20 01/07/20 17:53 23:51 04:12 WBC 16.5 H RBC 3.29 L Hgb 9.3 L Hct 28.1 L MCH RDW 18.2 H Plt Count 526 H Lymph % (Auto) 8.4 L [place] % (Auto) Rowan # 1.0 H Baso # Seg Neutrophils % 84.4 H Seg Neuts % (Manual) Lymphocytes % (Manual) Monocytes % (Manual) Seg Neutrophils # 13.9 H Seg Neutrophils # Man Lymphocytes # (Manual) Monocytes # (Manual) Eosinophils # (Manual) Basophils # (Manual) PT INR APTT ABG pH ABG pO2 ABG HCO3 ABG O2 Saturation ABG Base Excess ABG Hemoglobin Oxyhemoglobin Sodium Potassium Chloride Carbon Dioxide BUN Creatinine Glucose POC Glucose 166 H 128 H Lactic Acid Calcium Ionized Calcium Phosphorus Magnesium Total Bilirubin AST ALT Alkaline Phosphatase Ammonia Total Creatine Kinase CK-MB (CK-2) CK-MB (CK-2) Rel Index Total Protein Albumin Urine WBC (Auto) Vancomycin Trough Salicylates Acetaminophen Plasma/Serum Alcohol Crossmatch 01/07/20 01/07/20 01/07/20 04:12 04:45 11:51 WBC RBC Hgb Hct MCH RDW Plt Count Lymph % (Auto) [place] % (Auto) [place] # Baso # Seg Neutrophils % Seg Neuts % (Manual) Lymphocytes % (Manual) Monocytes % (Manual) Seg Neutrophils # Seg Neutrophils # Man Lymphocytes # (Manual) Monocytes # (Manual) Eosinophils # (Manual) Basophils # (Manual) PT INR APTT ABG pH ABG pO2 ABG HCO3 ABG O2 Saturation ABG Base Excess ABG Hemoglobin Oxyhemoglobin Sodium 136 L Potassium Chloride Carbon Dioxide 21 L BUN 44 H Creatinine 0.6 L Glucose 124 H POC Glucose 134 H 138 H Lactic Acid Calcium Ionized Calcium Phosphorus Magnesium Total Bilirubin AST ALT Alkaline Phosphatase Ammonia Total Creatine Kinase CK-MB (CK-2) CK-MB (CK-2) Rel Index Total Protein Albumin Urine WBC (Auto) Vancomycin Trough Salicylates Acetaminophen Plasma/Serum Alcohol Crossmatch 01/07/20 01/08/20 01/08/20 17:36 00:33 05:29 WBC RBC Hgb Hct MCH RDW Plt Count Lymph % (Auto) [place] % (Auto) [place] # Baso # Seg Neutrophils % Seg Neuts % (Manual) Lymphocytes % (Manual) Monocytes % (Manual) Seg Neutrophils # Seg Neutrophils # Man Lymphocytes # (Manual) Monocytes # (Manual) Eosinophils # (Manual) Basophils # (Manual) PT INR APTT ABG pH ABG pO2 ABG HCO3 ABG O2 Saturation ABG Base Excess ABG Hemoglobin Oxyhemoglobin Sodium Potassium Chloride Carbon Dioxide BUN Creatinine Glucose POC Glucose 128 H 119 H 124 H Lactic Acid Calcium Ionized Calcium Phosphorus Magnesium Total Bilirubin AST ALT Alkaline Phosphatase Ammonia Total Creatine Kinase CK-MB (CK-2) CK-MB (CK-2) Rel Index Total Protein Albumin Urine WBC (Auto) Vancomycin Trough Salicylates Acetaminophen Plasma/Serum Alcohol Crossmatch 01/08/20 01/08/20 01/08/20 12:51 20:25 23:22 WBC RBC Hgb Hct MCH RDW Plt Count Lymph % (Auto) [place] % (Auto) [place] # Baso # Seg Neutrophils % Seg Neuts % (Manual) Lymphocytes % (Manual) Monocytes % (Manual) Seg Neutrophils # Seg Neutrophils # Man Lymphocytes # (Manual) Monocytes # (Manual) Eosinophils # (Manual) Basophils # (Manual) PT INR APTT ABG pH ABG pO2 132.2 H ABG HCO3 ABG O2 Saturation ABG Base Excess ABG Hemoglobin Oxyhemoglobin Sodium Potassium Chloride Carbon Dioxide BUN Creatinine Glucose POC Glucose 128 H 127 H Lactic Acid Calcium Ionized Calcium Phosphorus Magnesium Total Bilirubin AST ALT Alkaline Phosphatase Ammonia Total Creatine Kinase CK-MB (CK-2) CK-MB (CK-2) Rel Index Total Protein Albumin Urine WBC (Auto) Vancomycin Trough Salicylates Acetaminophen Plasma/Serum Alcohol Crossmatch 01/09/20 01/09/20 01/09/20 05:48 08:51 11:29 WBC RBC Hgb Hct MCH RDW Plt Count Lymph % (Auto) [place] % (Auto) [place] # Baso # Seg Neutrophils % Seg Neuts % (Manual) Lymphocytes % (Manual) Monocytes % (Manual) Seg Neutrophils # Seg Neutrophils # Man Lymphocytes # (Manual) Monocytes # (Manual) Eosinophils # (Manual) Basophils # (Manual) PT INR APTT ABG pH ABG pO2 94.3 H ABG HCO3 ABG O2 Saturation ABG Base Excess ABG Hemoglobin 9.5 L Oxyhemoglobin Sodium Potassium Chloride Carbon Dioxide BUN Creatinine Glucose POC Glucose 120 H 112 H Lactic Acid Calcium Ionized Calcium Phosphorus Magnesium Total Bilirubin AST ALT Alkaline Phosphatase Ammonia Total Creatine Kinase CK-MB (CK-2) CK-MB (CK-2) Rel Index Total Protein Albumin Urine WBC (Auto) Vancomycin Trough Salicylates Acetaminophen Plasma/Serum Alcohol Crossmatch 01/09/20 01/10/20 01/10/20 17:57 05:17 12:28 WBC RBC Hgb Hct MCH RDW Plt Count Lymph % (Auto) [place] % (Auto) [place] # Baso # Seg Neutrophils % Seg Neuts % (Manual) Lymphocytes % (Manual) Monocytes % (Manual) Seg Neutrophils # Seg Neutrophils # Man Lymphocytes # (Manual) Monocytes # (Manual) Eosinophils # (Manual) Basophils # (Manual) PT INR APTT ABG pH ABG pO2 ABG HCO3 ABG O2 Saturation ABG Base Excess ABG Hemoglobin Oxyhemoglobin Sodium Potassium Chloride Carbon Dioxide BUN Creatinine Glucose POC Glucose 122 H 115 H 116 H Lactic Acid Calcium Ionized Calcium Phosphorus Magnesium Total Bilirubin AST ALT Alkaline Phosphatase Ammonia Total Creatine Kinase CK-MB (CK-2) CK-MB (CK-2) Rel Index Total Protein Albumin Urine WBC (Auto) Vancomycin Trough Salicylates Acetaminophen Plasma/Serum Alcohol Crossmatch 01/10/20 01/10/20 01/11/20 18:25 23:47 06:05 WBC RBC Hgb Hct MCH RDW Plt Count Lymph % (Auto) [place] % (Auto) [place] # Baso # Seg Neutrophils % Seg Neuts % (Manual) Lymphocytes % (Manual) Monocytes % (Manual) Seg Neutrophils # Seg Neutrophils # Man Lymphocytes # (Manual) Monocytes # (Manual) Eosinophils # (Manual) Basophils # (Manual) PT INR APTT ABG pH ABG pO2 ABG HCO3 ABG O2 Saturation ABG Base Excess ABG Hemoglobin Oxyhemoglobin Sodium Potassium Chloride Carbon Dioxide BUN Creatinine Glucose POC Glucose 123 H 115 H 151 H Lactic Acid Calcium Ionized Calcium Phosphorus Magnesium Total Bilirubin AST ALT Alkaline Phosphatase Ammonia Total Creatine Kinase CK-MB (CK-2) CK-MB (CK-2) Rel Index Total Protein Albumin Urine WBC (Auto) Vancomycin Trough Salicylates Acetaminophen Plasma/Serum Alcohol Crossmatch 01/11/20 01/11/20 01/11/20 07:00 07:00 12:27 WBC 11.8 H RBC 3.40 L Hgb 9.4 L Hct 29.3 L MCH RDW 18.1 H Plt Count 549 H Lymph % (Auto) [place] % (Auto) 9.1 H [place]an # 1.1 H Baso # Seg Neutrophils % 73.3 H Seg Neuts % (Manual) Lymphocytes % (Manual) Monocytes % (Manual) Seg Neutrophils # 8.7 H Seg Neutrophils # Man Lymphocytes # (Manual) Monocytes # (Manual) Eosinophils # (Manual) Basophils # (Manual) PT INR APTT ABG pH ABG pO2 ABG HCO3 ABG O2 Saturation ABG Base Excess ABG Hemoglobin Oxyhemoglobin Sodium 134 L Potassium Chloride 97.7 L Carbon Dioxide 21 L BUN 38 H Creatinine 0.5 L Glucose 168 H POC Glucose 117 H Lactic Acid Calcium 10.5 H Ionized Calcium Phosphorus Magnesium Total Bilirubin AST ALT Alkaline Phosphatase Ammonia Total Creatine Kinase CK-MB (CK-2) CK-MB (CK-2) Rel Index Total Protein Albumin Urine WBC (Auto) Vancomycin Trough Salicylates Acetaminophen Plasma/Serum Alcohol Crossmatch 01/11/20 01/12/20 01/12/20 18:19 00:53 05:24 WBC RBC Hgb Hct MCH RDW Plt Count Lymph % (Auto) [place] % (Auto) [place] # Baso # Seg Neutrophils % Seg Neuts % (Manual) Lymphocytes % (Manual) Monocytes % (Manual) Seg Neutrophils # Seg Neutrophils # Man Lymphocytes # (Manual) Monocytes # (Manual) Eosinophils # (Manual) Basophils # (Manual) PT INR APTT ABG pH ABG pO2 ABG HCO3 ABG O2 Saturation ABG Base Excess ABG Hemoglobin Oxyhemoglobin Sodium Potassium Chloride Carbon Dioxide BUN Creatinine Glucose POC Glucose 126 H 126 H 128 H Lactic Acid Calcium Ionized Calcium Phosphorus Magnesium Total Bilirubin AST ALT Alkaline Phosphatase Ammonia Total Creatine Kinase CK-MB (CK-2) CK-MB (CK-2) Rel Index Total Protein Albumin Urine WBC (Auto) Vancomycin Trough Salicylates Acetaminophen Plasma/Serum Alcohol Crossmatch 01/12/20 01/12/20 01/13/20 13:39 18:02 00:27 WBC RBC Hgb Hct MCH RDW Plt Count Lymph % (Auto) [place] % (Auto) [place] # Baso # Seg Neutrophils % Seg Neuts % (Manual) Lymphocytes % (Manual) Monocytes % (Manual) Seg Neutrophils # Seg Neutrophils # Man Lymphocytes # (Manual) Monocytes # (Manual) Eosinophils # (Manual) Basophils # (Manual) PT INR APTT ABG pH ABG pO2 ABG HCO3 ABG O2 Saturation ABG Base Excess ABG Hemoglobin Oxyhemoglobin Sodium Potassium Chloride Carbon Dioxide BUN Creatinine Glucose POC Glucose 146 H 125 H 131 H Lactic Acid Calcium Ionized Calcium Phosphorus Magnesium Total Bilirubin AST ALT Alkaline Phosphatase Ammonia Total Creatine Kinase CK-MB (CK-2) CK-MB (CK-2) Rel Index Total Protein Albumin Urine WBC (Auto) Vancomycin Trough Salicylates Acetaminophen Plasma/Serum Alcohol Crossmatch 01/13/20 01/13/20 01/13/20 05:44 11:54 17:18 WBC RBC Hgb Hct MCH RDW Plt Count Lymph % (Auto) [place] % (Auto) [place] # Baso # Seg Neutrophils % Seg Neuts % (Manual) Lymphocytes % (Manual) Monocytes % (Manual) Seg Neutrophils # Seg Neutrophils # Man Lymphocytes # (Manual) Monocytes # (Manual) Eosinophils # (Manual) Basophils # (Manual) PT INR APTT ABG pH ABG pO2 ABG HCO3 ABG O2 Saturation ABG Base Excess ABG Hemoglobin Oxyhemoglobin Sodium Potassium Chloride Carbon Dioxide BUN Creatinine Glucose POC Glucose 148 H 140 H 130 H Lactic Acid Calcium Ionized Calcium Phosphorus Magnesium Total Bilirubin AST ALT Alkaline Phosphatase Ammonia Total Creatine Kinase CK-MB (CK-2) CK-MB (CK-2) Rel Index Total Protein Albumin Urine WBC (Auto) Vancomycin Trough Salicylates Acetaminophen Plasma/Serum Alcohol Crossmatch 01/14/20 01/14/20 01/14/20 00:16 05:45 12:19 WBC RBC Hgb Hct MCH RDW Plt Count Lymph % (Auto) [place] % (Auto) [place] # Baso # Seg Neutrophils % Seg Neuts % (Manual) Lymphocytes % (Manual) Monocytes % (Manual) Seg Neutrophils # Seg Neutrophils # Man Lymphocytes # (Manual) Monocytes # (Manual) Eosinophils # (Manual) Basophils # (Manual) PT INR APTT ABG pH ABG pO2 ABG HCO3 ABG O2 Saturation ABG Base Excess ABG Hemoglobin Oxyhemoglobin Sodium Potassium Chloride Carbon Dioxide BUN Creatinine Glucose POC Glucose 125 H 146 H 147 H Lactic Acid Calcium Ionized Calcium Phosphorus Magnesium Total Bilirubin AST ALT Alkaline Phosphatase Ammonia Total Creatine Kinase CK-MB (CK-2) CK-MB (CK-2) Rel Index Total Protein Albumin Urine WBC (Auto) Vancomycin Trough Salicylates Acetaminophen Plasma/Serum Alcohol Crossmatch 01/14/20 01/14/20 01/15/20 18:10 23:54 05:14 WBC RBC Hgb Hct MCH RDW Plt Count Lymph % (Auto) [place] % (Auto) [place] # Baso # Seg Neutrophils % Seg Neuts % (Manual) Lymphocytes % (Manual) Monocytes % (Manual) Seg Neutrophils # Seg Neutrophils # Man Lymphocytes # (Manual) Monocytes # (Manual) Eosinophils # (Manual) Basophils # (Manual) PT INR APTT ABG pH ABG pO2 ABG HCO3 ABG O2 Saturation ABG Base Excess ABG Hemoglobin Oxyhemoglobin Sodium Potassium Chloride Carbon Dioxide BUN Creatinine Glucose POC Glucose 136 H 109 H 111 H Lactic Acid Calcium Ionized Calcium Phosphorus Magnesium Total Bilirubin AST ALT Alkaline Phosphatase Ammonia Total Creatine Kinase CK-MB (CK-2) CK-MB (CK-2) Rel Index Total Protein Albumin Urine WBC (Auto) Vancomycin Trough Salicylates Acetaminophen Plasma/Serum Alcohol Crossmatch 01/15/20 01/15/20 01/16/20 12:34 23:25 05:06 WBC RBC Hgb Hct MCH RDW Plt Count Lymph % (Auto) [place] % (Auto) [place] # Baso # Seg Neutrophils % Seg Neuts % (Manual) Lymphocytes % (Manual) Monocytes % (Manual) Seg Neutrophils # Seg Neutrophils # Man Lymphocytes # (Manual) Monocytes # (Manual) Eosinophils # (Manual) Basophils # (Manual) PT INR APTT ABG pH ABG pO2 ABG HCO3 ABG O2 Saturation ABG Base Excess ABG Hemoglobin Oxyhemoglobin Sodium Potassium Chloride Carbon Dioxide BUN Creatinine Glucose POC Glucose 131 H 120 H 121 H Lactic Acid Calcium Ionized Calcium Phosphorus Magnesium Total Bilirubin AST ALT Alkaline Phosphatase Ammonia Total Creatine Kinase CK-MB (CK-2) CK-MB (CK-2) Rel Index Total Protein Albumin Urine WBC (Auto) Vancomycin Trough Salicylates Acetaminophen Plasma/Serum Alcohol Crossmatch 01/16/20 01/16/20 01/17/20 12:15 23:46 05:32 WBC 13.6 H RBC 3.27 L Hgb 9.3 L Hct 28.5 L MCH RDW 17.0 H Plt Count 490 H Lymph % (Auto) 13.1 L [place] % (Auto) [place] # 1.0 H Baso # Seg Neutrophils % 77.5 H Seg Neuts % (Manual) Lymphocytes % (Manual) Monocytes % (Manual) Seg Neutrophils # 10.5 H Seg Neutrophils # Man Lymphocytes # (Manual) Monocytes # (Manual) Eosinophils # (Manual) Basophils # (Manual) PT INR APTT ABG pH ABG pO2 ABG HCO3 ABG O2 Saturation ABG Base Excess ABG Hemoglobin Oxyhemoglobin Sodium Potassium Chloride Carbon Dioxide BUN Creatinine Glucose POC Glucose 152 H 107 H Lactic Acid Calcium Ionized Calcium Phosphorus Magnesium Total Bilirubin AST ALT Alkaline Phosphatase Ammonia Total Creatine Kinase CK-MB (CK-2) CK-MB (CK-2) Rel Index Total Protein Albumin Urine WBC (Auto) Vancomycin Trough Salicylates Acetaminophen Plasma/Serum Alcohol Crossmatch 01/17/20 01/17/20 01/17/20 06:47 12:16 17:21 WBC RBC Hgb Hct MCH RDW Plt Count Lymph % (Auto) [place] % (Auto) [place] # Baso # Seg Neutrophils % Seg Neuts % (Manual) Lymphocytes % (Manual) Monocytes % (Manual) Seg Neutrophils # Seg Neutrophils # Man Lymphocytes # (Manual) Monocytes # (Manual) Eosinophils # (Manual) Basophils # (Manual) PT INR APTT ABG pH ABG pO2 ABG HCO3 ABG O2 Saturation ABG Base Excess ABG Hemoglobin Oxyhemoglobin Sodium Potassium Chloride Carbon Dioxide BUN Creatinine Glucose POC Glucose 112 H 145 H 150 H Lactic Acid Calcium Ionized Calcium Phosphorus Magnesium Total Bilirubin AST ALT Alkaline Phosphatase Ammonia Total Creatine Kinase CK-MB (CK-2) CK-MB (CK-2) Rel Index Total Protein Albumin Urine WBC (Auto) Vancomycin Trough Salicylates Acetaminophen Plasma/Serum Alcohol Crossmatch 01/17/20 01/18/20 01/18/20 23:34 05:47 12:43 WBC RBC Hgb Hct MCH RDW Plt Count Lymph % (Auto) [place] % (Auto) [place] # Baso # Seg Neutrophils % Seg Neuts % (Manual) Lymphocytes % (Manual) Monocytes % (Manual) Seg Neutrophils # Seg Neutrophils # Man Lymphocytes # (Manual) Monocytes # (Manual) Eosinophils # (Manual) Basophils # (Manual) PT INR APTT ABG pH ABG pO2 ABG HCO3 ABG O2 Saturation ABG Base Excess ABG Hemoglobin Oxyhemoglobin Sodium Potassium Chloride Carbon Dioxide BUN Creatinine Glucose POC Glucose 160 H 130 H 124 H Lactic Acid Calcium Ionized Calcium Phosphorus Magnesium Total Bilirubin AST ALT Alkaline Phosphatase Ammonia Total Creatine Kinase CK-MB (CK-2) CK-MB (CK-2) Rel Index Total Protein Albumin Urine WBC (Auto) Vancomycin Trough Salicylates Acetaminophen Plasma/Serum Alcohol Crossmatch 01/18/20 01/19/20 01/19/20 18:26 00:14 06:24 WBC RBC Hgb Hct MCH RDW Plt Count Lymph % (Auto) [place] % (Auto) [place] # Baso # Seg Neutrophils % Seg Neuts % (Manual) Lymphocytes % (Manual) Monocytes % (Manual) Seg Neutrophils # Seg Neutrophils # Man Lymphocytes # (Manual) Monocytes # (Manual) Eosinophils # (Manual) Basophils # (Manual) PT INR APTT ABG pH ABG pO2 ABG HCO3 ABG O2 Saturation ABG Base Excess ABG Hemoglobin Oxyhemoglobin Sodium Potassium Chloride Carbon Dioxide BUN Creatinine Glucose POC Glucose 119 H 114 H 144 H Lactic Acid Calcium Ionized Calcium Phosphorus Magnesium Total Bilirubin AST ALT Alkaline Phosphatase Ammonia Total Creatine Kinase CK-MB (CK-2) CK-MB (CK-2) Rel Index Total Protein Albumin Urine WBC (Auto) Vancomycin Trough Salicylates Acetaminophen Plasma/Serum Alcohol Crossmatch 01/19/20 01/19/20 01/20/20 12:24 17:50 12:06 WBC RBC Hgb Hct MCH RDW Plt Count Lymph % (Auto) [place] % (Auto) [place] # Baso # Seg Neutrophils % Seg Neuts % (Manual) Lymphocytes % (Manual) Monocytes % (Manual) Seg Neutrophils # Seg Neutrophils # Man Lymphocytes # (Manual) Monocytes # (Manual) Eosinophils # (Manual) Basophils # (Manual) PT INR APTT ABG pH ABG pO2 ABG HCO3 ABG O2 Saturation ABG Base Excess ABG Hemoglobin Oxyhemoglobin Sodium Potassium Chloride Carbon Dioxide BUN Creatinine Glucose POC Glucose 132 H 144 H 135 H Lactic Acid Calcium Ionized Calcium Phosphorus Magnesium Total Bilirubin AST ALT Alkaline Phosphatase Ammonia Total Creatine Kinase CK-MB (CK-2) CK-MB (CK-2) Rel Index Total Protein Albumin Urine WBC (Auto) Vancomycin Trough Salicylates Acetaminophen Plasma/Serum Alcohol Crossmatch 01/21/20 01/21/20 01/21/20 05:46 13:02 23:49 WBC RBC Hgb Hct MCH RDW Plt Count Lymph % (Auto) [place] % (Auto) [place] # Baso # Seg Neutrophils % Seg Neuts % (Manual) Lymphocytes % (Manual) Monocytes % (Manual) Seg Neutrophils # Seg Neutrophils # Man Lymphocytes # (Manual) Monocytes # (Manual) Eosinophils # (Manual) Basophils # (Manual) PT INR APTT ABG pH ABG pO2 ABG HCO3 ABG O2 Saturation ABG Base Excess ABG Hemoglobin Oxyhemoglobin Sodium Potassium Chloride Carbon Dioxide BUN Creatinine Glucose POC Glucose 114 H 136 H 120 H Lactic Acid Calcium Ionized Calcium Phosphorus Magnesium Total Bilirubin AST ALT Alkaline Phosphatase Ammonia Total Creatine Kinase CK-MB (CK-2) CK-MB (CK-2) Rel Index Total Protein Albumin Urine WBC (Auto) Vancomycin Trough Salicylates Acetaminophen Plasma/Serum Alcohol Crossmatch 01/22/20 01/22/20 01/22/20 05:41 11:44 16:31 WBC RBC Hgb Hct MCH RDW Plt Count Lymph % (Auto) [place] % (Auto) [place] # Baso # Seg Neutrophils % Seg Neuts % (Manual) Lymphocytes % (Manual) Monocytes % (Manual) Seg Neutrophils # Seg Neutrophils # Man Lymphocytes # (Manual) Monocytes # (Manual) Eosinophils # (Manual) Basophils # (Manual) PT INR APTT ABG pH ABG pO2 ABG HCO3 ABG O2 Saturation ABG Base Excess ABG Hemoglobin Oxyhemoglobin Sodium Potassium Chloride Carbon Dioxide BUN Creatinine Glucose POC Glucose 124 H 173 H 111 H Lactic Acid Calcium Ionized Calcium Phosphorus Magnesium Total Bilirubin AST ALT Alkaline Phosphatase Ammonia Total Creatine Kinase CK-MB (CK-2) CK-MB (CK-2) Rel Index Total Protein Albumin Urine WBC (Auto) Vancomycin Trough Salicylates Acetaminophen Plasma/Serum Alcohol Crossmatch 01/22/20 01/23/20 01/23/20 23:25 05:15 12:15 WBC RBC Hgb Hct MCH RDW Plt Count Lymph % (Auto) [place] % (Auto) [place] # Baso # Seg Neutrophils % Seg Neuts % (Manual) Lymphocytes % (Manual) Monocytes % (Manual) Seg Neutrophils # Seg Neutrophils # Man Lymphocytes # (Manual) Monocytes # (Manual) Eosinophils # (Manual) Basophils # (Manual) PT INR APTT ABG pH ABG pO2 ABG HCO3 ABG O2 Saturation ABG Base Excess ABG Hemoglobin Oxyhemoglobin Sodium Potassium Chloride Carbon Dioxide BUN Creatinine Glucose POC Glucose 134 H 117 H 129 H Lactic Acid Calcium Ionized Calcium Phosphorus Magnesium Total Bilirubin AST ALT Alkaline Phosphatase Ammonia Total Creatine Kinase CK-MB (CK-2) CK-MB (CK-2) Rel Index Total Protein Albumin Urine WBC (Auto) Vancomycin Trough Salicylates Acetaminophen Plasma/Serum Alcohol Crossmatch 01/23/20 01/23/20 01/23/20 16:58 21:17 23:47 WBC RBC Hgb Hct MCH RDW Plt Count Lymph % (Auto) [place] % (Auto) [place] # Baso # Seg Neutrophils % Seg Neuts % (Manual) Lymphocytes % (Manual) Monocytes % (Manual) Seg Neutrophils # Seg Neutrophils # Man Lymphocytes # (Manual) Monocytes # (Manual) Eosinophils # (Manual) Basophils # (Manual) PT INR APTT ABG pH ABG pO2 ABG HCO3 ABG O2 Saturation ABG Base Excess ABG Hemoglobin Oxyhemoglobin Sodium Potassium Chloride Carbon Dioxide BUN Creatinine Glucose POC Glucose 156 H 185 H 156 H Lactic Acid Calcium Ionized Calcium Phosphorus Magnesium Total Bilirubin AST ALT Alkaline Phosphatase Ammonia Total Creatine Kinase CK-MB (CK-2) CK-MB (CK-2) Rel Index Total Protein Albumin Urine WBC (Auto) Vancomycin Trough Salicylates Acetaminophen Plasma/Serum Alcohol Crossmatch 01/24/20 01/24/20 01/24/20 04:47 04:47 05:59 WBC 17.8 H RBC 3.60 L Hgb Hct MCH RDW 16.2 H Plt Count 688 H Lymph % (Auto) 11.8 L [place] % (Auto) 7.5 H [place] # 1.3 H Baso # Seg Neutrophils % 79.9 H Seg Neuts % (Manual) Lymphocytes % (Manual) Monocytes % (Manual) Seg Neutrophils # 14.2 H Seg Neutrophils # Man Lymphocytes # (Manual) Monocytes # (Manual) Eosinophils # (Manual) Basophils # (Manual) PT INR APTT ABG pH ABG pO2 ABG HCO3 ABG O2 Saturation ABG Base Excess ABG Hemoglobin Oxyhemoglobin Sodium 131 L Potassium Chloride 91.2 L Carbon Dioxide BUN 22 H Creatinine 0.3 L Glucose 123 H POC Glucose 147 H Lactic Acid Calcium 10.9 H Ionized Calcium Phosphorus Magnesium Total Bilirubin AST ALT Alkaline Phosphatase Ammonia Total Creatine Kinase CK-MB (CK-2) CK-MB (CK-2) Rel Index Total Protein Albumin Urine WBC (Auto) Vancomycin Trough Salicylates Acetaminophen Plasma/Serum Alcohol Crossmatch 01/24/20 01/24/20 01/25/20 11:47 16:45 00:18 WBC RBC Hgb Hct MCH RDW Plt Count Lymph % (Auto) [place] % (Auto) [place] # Baso # Seg Neutrophils % Seg Neuts % (Manual) Lymphocytes % (Manual) Monocytes % (Manual) Seg Neutrophils # Seg Neutrophils # Man Lymphocytes # (Manual) Monocytes # (Manual) Eosinophils # (Manual) Basophils # (Manual) PT INR APTT ABG pH ABG pO2 ABG HCO3 ABG O2 Saturation ABG Base Excess ABG Hemoglobin Oxyhemoglobin Sodium Potassium Chloride Carbon Dioxide BUN Creatinine Glucose POC Glucose 114 H 108 H 119 H Lactic Acid Calcium Ionized Calcium Phosphorus Magnesium Total Bilirubin AST ALT Alkaline Phosphatase Ammonia Total Creatine Kinase CK-MB (CK-2) CK-MB (CK-2) Rel Index Total Protein Albumin Urine WBC (Auto) Vancomycin Trough Salicylates Acetaminophen Plasma/Serum Alcohol Crossmatch 01/25/20 01/25/20 01/25/20 07:18 11:58 16:56 WBC RBC Hgb Hct MCH RDW Plt Count Lymph % (Auto) [place] % (Auto) [place] # Baso # Seg Neutrophils % Seg Neuts % (Manual) Lymphocytes % (Manual) Monocytes % (Manual) Seg Neutrophils # Seg Neutrophils # Man Lymphocytes # (Manual) Monocytes # (Manual) Eosinophils # (Manual) Basophils # (Manual) PT INR APTT ABG pH ABG pO2 ABG HCO3 ABG O2 Saturation ABG Base Excess ABG Hemoglobin Oxyhemoglobin Sodium Potassium Chloride Carbon Dioxide BUN Creatinine Glucose POC Glucose 136 H 136 H 147 H Lactic Acid Calcium Ionized Calcium Phosphorus Magnesium Total Bilirubin AST ALT Alkaline Phosphatase Ammonia Total Creatine Kinase CK-MB (CK-2) CK-MB (CK-2) Rel Index Total Protein Albumin Urine WBC (Auto) Vancomycin Trough Salicylates Acetaminophen Plasma/Serum Alcohol Crossmatch 01/26/20 01/26/20 01/26/20 00:29 05:59 05:59 WBC 12.8 H RBC Hgb Hct MCH RDW 16.4 H Plt Count 743 H Lymph % (Auto) [place] % (Auto) [place] # 0.9 H Baso # Seg Neutrophils % 76.2 H Seg Neuts % (Manual) Lymphocytes % (Manual) Monocytes % (Manual) Seg Neutrophils # 9.8 H Seg Neutrophils # Man Lymphocytes # (Manual) Monocytes # (Manual) Eosinophils # (Manual) Basophils # (Manual) PT INR APTT ABG pH ABG pO2 ABG HCO3 ABG O2 Saturation ABG Base Excess ABG Hemoglobin Oxyhemoglobin Sodium 132 L Potassium Chloride 90.9 L Carbon Dioxide BUN 23 H Creatinine 0.4 L Glucose 122 H POC Glucose 107 H Lactic Acid Calcium 11.0 H Ionized Calcium Phosphorus Magnesium Total Bilirubin AST ALT Alkaline Phosphatase Ammonia Total Creatine Kinase CK-MB (CK-2) CK-MB (CK-2) Rel Index Total Protein Albumin Urine WBC (Auto) Vancomycin Trough Salicylates Acetaminophen Plasma/Serum Alcohol Crossmatch 01/26/20 01/26/20 01/26/20 06:27 12:06 16:49 WBC RBC Hgb Hct MCH RDW Plt Count Lymph % (Auto) [place] % (Auto) [place] # Baso # Seg Neutrophils % Seg Neuts % (Manual) Lymphocytes % (Manual) Monocytes % (Manual) Seg Neutrophils # Seg Neutrophils # Man Lymphocytes # (Manual) Monocytes # (Manual) Eosinophils # (Manual) Basophils # (Manual) PT INR APTT ABG pH ABG pO2 ABG HCO3 ABG O2 Saturation ABG Base Excess ABG Hemoglobin Oxyhemoglobin Sodium Potassium Chloride Carbon Dioxide BUN Creatinine Glucose POC Glucose 132 H 132 H 110 H Lactic Acid Calcium Ionized Calcium Phosphorus Magnesium Total Bilirubin AST ALT Alkaline Phosphatase Ammonia Total Creatine Kinase CK-MB (CK-2) CK-MB (CK-2) Rel Index Total Protein Albumin Urine WBC (Auto) Vancomycin Trough Salicylates Acetaminophen Plasma/Serum Alcohol Crossmatch 01/27/20 01/27/20 01/27/20 00:08 11:49 16:24 WBC RBC Hgb Hct MCH RDW Plt Count Lymph % (Auto) [place] % (Auto) [place] # Baso # Seg Neutrophils % Seg Neuts % (Manual) Lymphocytes % (Manual) Monocytes % (Manual) Seg Neutrophils # Seg Neutrophils # Man Lymphocytes # (Manual) Monocytes # (Manual) Eosinophils # (Manual) Basophils # (Manual) PT INR APTT ABG pH ABG pO2 ABG HCO3 ABG O2 Saturation ABG Base Excess ABG Hemoglobin Oxyhemoglobin Sodium Potassium Chloride Carbon Dioxide BUN Creatinine Glucose POC Glucose 107 H 119 H 129 H Lactic Acid Calcium Ionized Calcium Phosphorus Magnesium Total Bilirubin AST ALT Alkaline Phosphatase Ammonia Total Creatine Kinase CK-MB (CK-2) CK-MB (CK-2) Rel Index Total Protein Albumin Urine WBC (Auto) Vancomycin Trough Salicylates Acetaminophen Plasma/Serum Alcohol Crossmatch 01/27/20 01/28/20 01/28/20 18:28 01:00 06:22 WBC RBC Hgb Hct MCH RDW Plt Count Lymph % (Auto) [place] % (Auto) [place] # Baso # Seg Neutrophils % Seg Neuts % (Manual) Lymphocytes % (Manual) Monocytes % (Manual) Seg Neutrophils # Seg Neutrophils # Man Lymphocytes # (Manual) Monocytes # (Manual) Eosinophils # (Manual) Basophils # (Manual) PT INR APTT ABG pH ABG pO2 ABG HCO3 ABG O2 Saturation ABG Base Excess ABG Hemoglobin Oxyhemoglobin Sodium Potassium Chloride Carbon Dioxide BUN Creatinine Glucose POC Glucose 126 H 121 H 114 H Lactic Acid Calcium Ionized Calcium Phosphorus Magnesium Total Bilirubin AST ALT Alkaline Phosphatase Ammonia Total Creatine Kinase CK-MB (CK-2) CK-MB (CK-2) Rel Index Total Protein Albumin Urine WBC (Auto) Vancomycin Trough Salicylates Acetaminophen Plasma/Serum Alcohol Crossmatch 01/28/20 01/28/20 01/29/20 11:47 18:00 00:05 WBC RBC Hgb Hct MCH RDW Plt Count Lymph % (Auto) [place] % (Auto) [place] # Baso # Seg Neutrophils % Seg Neuts % (Manual) Lymphocytes % (Manual) Monocytes % (Manual) Seg Neutrophils # Seg Neutrophils # Man Lymphocytes # (Manual) Monocytes # (Manual) Eosinophils # (Manual) Basophils # (Manual) PT INR APTT ABG pH ABG pO2 ABG HCO3 ABG O2 Saturation ABG Base Excess ABG Hemoglobin Oxyhemoglobin Sodium Potassium Chloride Carbon Dioxide BUN Creatinine Glucose POC Glucose 106 H 117 H 127 H Lactic Acid Calcium Ionized Calcium Phosphorus Magnesium Total Bilirubin AST ALT Alkaline Phosphatase Ammonia Total Creatine Kinase CK-MB (CK-2) CK-MB (CK-2) Rel Index Total Protein Albumin Urine WBC (Auto) Vancomycin Trough Salicylates Acetaminophen Plasma/Serum Alcohol Crossmatch 05/12/20 05/12/20 05/12/20 06:04 11:40 16:38 WBC RBC Hgb Hct MCH RDW Plt Count Lymph % (Auto) [place] % (Auto) [place] # Baso # Seg Neutrophils % Seg Neuts % (Manual) Lymphocytes % (Manual) Monocytes % (Manual) Seg Neutrophils # Seg Neutrophils # Man Lymphocytes # (Manual) Monocytes # (Manual) Eosinophils # (Manual) Basophils # (Manual) PT INR APTT ABG pH ABG pO2 ABG HCO3 ABG O2 Saturation ABG Base Excess ABG Hemoglobin Oxyhemoglobin Sodium Potassium Chloride Carbon Dioxide BUN Creatinine Glucose POC Glucose 147 H 139 H 143 H Lactic Acid Calcium Ionized Calcium Phosphorus Magnesium Total Bilirubin AST ALT Alkaline Phosphatase Ammonia Total Creatine Kinase CK-MB (CK-2) CK-MB (CK-2) Rel Index Total Protein Albumin Urine WBC (Auto) Vancomycin Trough Salicylates Acetaminophen Plasma/Serum Alcohol Crossmatch 01/29/20 01/30/20 01/30/20 23:46 06:43 12:07 WBC RBC Hgb Hct MCH RDW Plt Count Lymph % (Auto) [place] % (Auto) [place]an # Baso # Seg Neutrophils % Seg Neuts % (Manual) Lymphocytes % (Manual) Monocytes % (Manual) Seg Neutrophils # Seg Neutrophils # Man Lymphocytes # (Manual) Monocytes # (Manual) Eosinophils # (Manual) Basophils # (Manual) PT INR APTT ABG pH ABG pO2 ABG HCO3 ABG O2 Saturation ABG Base Excess ABG Hemoglobin Oxyhemoglobin Sodium Potassium Chloride Carbon Dioxide BUN Creatinine Glucose POC Glucose 122 H 122 H 134 H Lactic Acid Calcium Ionized Calcium Phosphorus Magnesium Total Bilirubin AST ALT Alkaline Phosphatase Ammonia Total Creatine Kinase CK-MB (CK-2) CK-MB (CK-2) Rel Index Total Protein Albumin Urine WBC (Auto) Vancomycin Trough Salicylates Acetaminophen Plasma/Serum Alcohol Crossmatch 01/30/20 01/31/20 01/31/20 17:59 00:52 05:54 WBC RBC Hgb Hct MCH RDW Plt Count Lymph % (Auto) [place] % (Auto) [place] # Baso # Seg Neutrophils % Seg Neuts % (Manual) Lymphocytes % (Manual) Monocytes % (Manual) Seg Neutrophils # Seg Neutrophils # Man Lymphocytes # (Manual) Monocytes # (Manual) Eosinophils # (Manual) Basophils # (Manual) PT INR APTT ABG pH ABG pO2 ABG HCO3 ABG O2 Saturation ABG Base Excess ABG Hemoglobin Oxyhemoglobin Sodium Potassium Chloride Carbon Dioxide BUN Creatinine Glucose POC Glucose 116 H 127 H 127 H Lactic Acid Calcium Ionized Calcium Phosphorus Magnesium Total Bilirubin AST ALT Alkaline Phosphatase Ammonia Total Creatine Kinase CK-MB (CK-2) CK-MB (CK-2) Rel Index Total Protein Albumin Urine WBC (Auto) Vancomycin Trough Salicylates Acetaminophen Plasma/Serum Alcohol Crossmatch 01/31/20 02/01/20 02/01/20 12:20 00:48 12:21 WBC RBC Hgb Hct MCH RDW Plt Count Lymph % (Auto) [place] % (Auto) [place] # Baso # Seg Neutrophils % Seg Neuts % (Manual) Lymphocytes % (Manual) Monocytes % (Manual) Seg Neutrophils # Seg Neutrophils # Man Lymphocytes # (Manual) Monocytes # (Manual) Eosinophils # (Manual) Basophils # (Manual) PT INR APTT ABG pH ABG pO2 ABG HCO3 ABG O2 Saturation ABG Base Excess ABG Hemoglobin Oxyhemoglobin Sodium Potassium Chloride Carbon Dioxide BUN Creatinine Glucose POC Glucose 126 H 154 H 123 H Lactic Acid Calcium Ionized Calcium Phosphorus Magnesium Total Bilirubin AST ALT Alkaline Phosphatase Ammonia Total Creatine Kinase CK-MB (CK-2) CK-MB (CK-2) Rel Index Total Protein Albumin Urine WBC (Auto) Vancomycin Trough Salicylates Acetaminophen Plasma/Serum Alcohol Crossmatch 02/01/20 02/02/20 02/02/20 23:58 06:08 11:50 WBC RBC Hgb Hct MCH RDW Plt Count Lymph % (Auto) [place] % (Auto) [place] # Baso # Seg Neutrophils % Seg Neuts % (Manual) Lymphocytes % (Manual) Monocytes % (Manual) Seg Neutrophils # Seg Neutrophils # Man Lymphocytes # (Manual) Monocytes # (Manual) Eosinophils # (Manual) Basophils # (Manual) PT INR APTT ABG pH ABG pO2 ABG HCO3 ABG O2 Saturation ABG Base Excess ABG Hemoglobin Oxyhemoglobin Sodium Potassium Chloride Carbon Dioxide BUN Creatinine Glucose POC Glucose 125 H 144 H 131 H Lactic Acid Calcium Ionized Calcium Phosphorus Magnesium Total Bilirubin AST ALT Alkaline Phosphatase Ammonia Total Creatine Kinase CK-MB (CK-2) CK-MB (CK-2) Rel Index Total Protein Albumin Urine WBC (Auto) Vancomycin Trough Salicylates Acetaminophen Plasma/Serum Alcohol Crossmatch 02/02/20 02/03/20 02/03/20 17:53 00:14 05:47 WBC RBC Hgb Hct MCH RDW Plt Count Lymph % (Auto) [place] % (Auto) [place] # Baso # Seg Neutrophils % Seg Neuts % (Manual) Lymphocytes % (Manual) Monocytes % (Manual) Seg Neutrophils # Seg Neutrophils # Man Lymphocytes # (Manual) Monocytes # (Manual) Eosinophils # (Manual) Basophils # (Manual) PT INR APTT ABG pH ABG pO2 ABG HCO3 ABG O2 Saturation ABG Base Excess ABG Hemoglobin Oxyhemoglobin Sodium Potassium Chloride Carbon Dioxide BUN Creatinine Glucose POC Glucose 108 H 122 H 118 H Lactic Acid Calcium Ionized Calcium Phosphorus Magnesium Total Bilirubin AST ALT Alkaline Phosphatase Ammonia Total Creatine Kinase CK-MB (CK-2) CK-MB (CK-2) Rel Index Total Protein Albumin Urine WBC (Auto) Vancomycin Trough Salicylates Acetaminophen Plasma/Serum Alcohol Crossmatch 02/03/20 02/03/20 02/03/20 05:59 05:59 11:49 WBC RBC 3.48 L Hgb Hct 29.9 L MCH RDW 16.2 H Plt Count 707 H Lymph % (Auto) [place] % (Auto) 9.3 H Rowan # 0.9 H Baso # Seg Neutrophils % Seg Neuts % (Manual) Lymphocytes % (Manual) Monocytes % (Manual) Seg Neutrophils # Seg Neutrophils # Man Lymphocytes # (Manual) Monocytes # (Manual) Eosinophils # (Manual) Basophils # (Manual) PT INR APTT ABG pH ABG pO2 ABG HCO3 ABG O2 Saturation ABG Base Excess ABG Hemoglobin Oxyhemoglobin Sodium 136 L Potassium Chloride 93.4 L Carbon Dioxide BUN 20 H Creatinine 0.5 L Glucose 101 H POC Glucose 133 H Lactic Acid Calcium 10.8 H Ionized Calcium Phosphorus Magnesium Total Bilirubin AST ALT Alkaline Phosphatase Ammonia Total Creatine Kinase CK-MB (CK-2) CK-MB (CK-2) Rel Index Total Protein Albumin Urine WBC (Auto) Vancomycin Trough Salicylates Acetaminophen Plasma/Serum Alcohol Crossmatch 02/03/20 02/04/20 02/04/20 23:19 05:37 23:56 WBC RBC Hgb Hct MCH RDW Plt Count Lymph % (Auto) [place] % (Auto) [place] # Baso # Seg Neutrophils % Seg Neuts % (Manual) Lymphocytes % (Manual) Monocytes % (Manual) Seg Neutrophils # Seg Neutrophils # Man Lymphocytes # (Manual) Monocytes # (Manual) Eosinophils # (Manual) Basophils # (Manual) PT INR APTT ABG pH ABG pO2 ABG HCO3 ABG O2 Saturation ABG Base Excess ABG Hemoglobin Oxyhemoglobin Sodium Potassium Chloride Carbon Dioxide BUN Creatinine Glucose POC Glucose 135 H 108 H 158 H Lactic Acid Calcium Ionized Calcium Phosphorus Magnesium Total Bilirubin AST ALT Alkaline Phosphatase Ammonia Total Creatine Kinase CK-MB (CK-2) CK-MB (CK-2) Rel Index Total Protein Albumin Urine WBC (Auto) Vancomycin Trough Salicylates Acetaminophen Plasma/Serum Alcohol Crossmatch 02/05/20 02/05/20 02/06/20 05:33 23:24 05:50 WBC RBC Hgb Hct MCH RDW Plt Count Lymph % (Auto) [place] % (Auto) [place] # Baso # Seg Neutrophils % Seg Neuts % (Manual) Lymphocytes % (Manual) Monocytes % (Manual) Seg Neutrophils # Seg Neutrophils # Man Lymphocytes # (Manual) Monocytes # (Manual) Eosinophils # (Manual) Basophils # (Manual) PT INR APTT ABG pH ABG pO2 ABG HCO3 ABG O2 Saturation ABG Base Excess ABG Hemoglobin Oxyhemoglobin Sodium Potassium Chloride Carbon Dioxide BUN Creatinine Glucose POC Glucose 152 H 158 H 110 H Lactic Acid Calcium Ionized Calcium Phosphorus Magnesium Total Bilirubin AST ALT Alkaline Phosphatase Ammonia Total Creatine Kinase CK-MB (CK-2) CK-MB (CK-2) Rel Index Total Protein Albumin Urine WBC (Auto) Vancomycin Trough Salicylates Acetaminophen Plasma/Serum Alcohol Crossmatch 02/06/20 02/07/20 02/07/20 16:03 00:13 05:27 WBC RBC Hgb Hct MCH RDW Plt Count Lymph % (Auto) [place] % (Auto) [place] # Baso # Seg Neutrophils % Seg Neuts % (Manual) Lymphocytes % (Manual) Monocytes % (Manual) Seg Neutrophils # Seg Neutrophils # Man Lymphocytes # (Manual) Monocytes # (Manual) Eosinophils # (Manual) Basophils # (Manual) PT INR APTT ABG pH ABG pO2 ABG HCO3 ABG O2 Saturation ABG Base Excess ABG Hemoglobin Oxyhemoglobin Sodium Potassium Chloride Carbon Dioxide BUN Creatinine Glucose POC Glucose 130 H 115 H 115 H Lactic Acid Calcium Ionized Calcium Phosphorus Magnesium Total Bilirubin AST ALT Alkaline Phosphatase Ammonia Total Creatine Kinase CK-MB (CK-2) CK-MB (CK-2) Rel Index Total Protein Albumin Urine WBC (Auto) Vancomycin Trough Salicylates Acetaminophen Plasma/Serum Alcohol Crossmatch 02/07/20 02/07/20 02/08/20 11:42 17:23 00:37 WBC RBC Hgb Hct MCH RDW Plt Count Lymph % (Auto) [place] % (Auto) [place] # Baso # Seg Neutrophils % Seg Neuts % (Manual) Lymphocytes % (Manual) Monocytes % (Manual) Seg Neutrophils # Seg Neutrophils # Man Lymphocytes # (Manual) Monocytes # (Manual) Eosinophils # (Manual) Basophils # (Manual) PT INR APTT ABG pH ABG pO2 ABG HCO3 ABG O2 Saturation ABG Base Excess ABG Hemoglobin Oxyhemoglobin Sodium Potassium Chloride Carbon Dioxide BUN Creatinine Glucose POC Glucose 113 H 114 H 136 H Lactic Acid Calcium Ionized Calcium Phosphorus Magnesium Total Bilirubin AST ALT Alkaline Phosphatase Ammonia Total Creatine Kinase CK-MB (CK-2) CK-MB (CK-2) Rel Index Total Protein Albumin Urine WBC (Auto) Vancomycin Trough Salicylates Acetaminophen Plasma/Serum Alcohol Crossmatch 02/08/20 02/08/20 02/08/20 08:52 11:42 17:02 WBC RBC Hgb Hct MCH RDW Plt Count Lymph % (Auto) [place] % (Auto) [place] # Baso # Seg Neutrophils % Seg Neuts % (Manual) Lymphocytes % (Manual) Monocytes % (Manual) Seg Neutrophils # Seg Neutrophils # Man Lymphocytes # (Manual) Monocytes # (Manual) Eosinophils # (Manual) Basophils # (Manual) PT INR APTT ABG pH ABG pO2 ABG HCO3 ABG O2 Saturation ABG Base Excess ABG Hemoglobin Oxyhemoglobin Sodium 136 L Potassium Chloride 95.7 L Carbon Dioxide BUN 21 H Creatinine 0.4 L Glucose POC Glucose 128 H 145 H Lactic Acid Calcium 10.4 H Ionized Calcium Phosphorus Magnesium Total Bilirubin AST ALT Alkaline Phosphatase Ammonia Total Creatine Kinase CK-MB (CK-2) CK-MB (CK-2) Rel Index Total Protein Albumin Urine WBC (Auto) Vancomycin Trough Salicylates Acetaminophen Plasma/Serum Alcohol Crossmatch 02/09/20 02/09/20 02/09/20 01:05 11:52 16:19 WBC RBC Hgb Hct MCH RDW Plt Count Lymph % (Auto) [place] % (Auto) [place] # Baso # Seg Neutrophils % Seg Neuts % (Manual) Lymphocytes % (Manual) Monocytes % (Manual) Seg Neutrophils # Seg Neutrophils # Man Lymphocytes # (Manual) Monocytes # (Manual) Eosinophils # (Manual) Basophils # (Manual) PT INR APTT ABG pH ABG pO2 ABG HCO3 ABG O2 Saturation ABG Base Excess ABG Hemoglobin Oxyhemoglobin Sodium Potassium Chloride Carbon Dioxide BUN Creatinine Glucose POC Glucose 117 H 141 H 113 H Lactic Acid Calcium Ionized Calcium Phosphorus Magnesium Total Bilirubin AST ALT Alkaline Phosphatase Ammonia Total Creatine Kinase CK-MB (CK-2) CK-MB (CK-2) Rel Index Total Protein Albumin Urine WBC (Auto) Vancomycin Trough Salicylates Acetaminophen Plasma/Serum Alcohol Crossmatch 02/10/20 02/10/20 02/10/20 05:25 12:50 17:08 WBC RBC Hgb Hct MCH RDW Plt Count Lymph % (Auto) [place] % (Auto) [place] # Baso # Seg Neutrophils % Seg Neuts % (Manual) Lymphocytes % (Manual) Monocytes % (Manual) Seg Neutrophils # Seg Neutrophils # Man Lymphocytes # (Manual) Monocytes # (Manual) Eosinophils # (Manual) Basophils # (Manual) PT INR APTT ABG pH ABG pO2 ABG HCO3 ABG O2 Saturation ABG Base Excess ABG Hemoglobin Oxyhemoglobin Sodium Potassium Chloride Carbon Dioxide BUN Creatinine Glucose POC Glucose 136 H 127 H 111 H Lactic Acid Calcium Ionized Calcium Phosphorus Magnesium Total Bilirubin AST ALT Alkaline Phosphatase Ammonia Total Creatine Kinase CK-MB (CK-2) CK-MB (CK-2) Rel Index Total Protein Albumin Urine WBC (Auto) Vancomycin Trough Salicylates Acetaminophen Plasma/Serum Alcohol Crossmatch 02/10/20 02/11/20 02/11/20 23:55 06:11 12:07 WBC RBC Hgb Hct MCH RDW Plt Count Lymph % (Auto) [place] % (Auto) [place] # Baso # Seg Neutrophils % Seg Neuts % (Manual) Lymphocytes % (Manual) Monocytes % (Manual) Seg Neutrophils # Seg Neutrophils # Man Lymphocytes # (Manual) Monocytes # (Manual) Eosinophils # (Manual) Basophils # (Manual) PT INR APTT ABG pH ABG pO2 ABG HCO3 ABG O2 Saturation ABG Base Excess ABG Hemoglobin Oxyhemoglobin Sodium Potassium Chloride Carbon Dioxide BUN Creatinine Glucose POC Glucose 129 H 128 H 141 H Lactic Acid Calcium Ionized Calcium Phosphorus Magnesium Total Bilirubin AST ALT Alkaline Phosphatase Ammonia Total Creatine Kinase CK-MB (CK-2) CK-MB (CK-2) Rel Index Total Protein Albumin Urine WBC (Auto) Vancomycin Trough Salicylates Acetaminophen Plasma/Serum Alcohol Crossmatch 02/11/20 02/12/20 02/13/20 18:22 02:39 06:45 WBC RBC Hgb Hct MCH RDW Plt Count Lymph % (Auto) [place] % (Auto) [place] # Baso # Seg Neutrophils % Seg Neuts % (Manual) Lymphocytes % (Manual) Monocytes % (Manual) Seg Neutrophils # Seg Neutrophils # Man Lymphocytes # (Manual) Monocytes # (Manual) Eosinophils # (Manual) Basophils # (Manual) PT INR APTT ABG pH ABG pO2 ABG HCO3 ABG O2 Saturation ABG Base Excess ABG Hemoglobin Oxyhemoglobin Sodium Potassium Chloride Carbon Dioxide BUN Creatinine Glucose POC Glucose 118 H 107 H 124 H Lactic Acid Calcium Ionized Calcium Phosphorus Magnesium Total Bilirubin AST ALT Alkaline Phosphatase Ammonia Total Creatine Kinase CK-MB (CK-2) CK-MB (CK-2) Rel Index Total Protein Albumin Urine WBC (Auto) Vancomycin Trough Salicylates Acetaminophen Plasma/Serum Alcohol Crossmatch 02/13/20 02/13/20 02/14/20 12:26 18:19 00:21 WBC RBC Hgb Hct MCH RDW Plt Count Lymph % (Auto) [place] % (Auto) [place] # Baso # Seg Neutrophils % Seg Neuts % (Manual) Lymphocytes % (Manual) Monocytes % (Manual) Seg Neutrophils # Seg Neutrophils # Man Lymphocytes # (Manual) Monocytes # (Manual) Eosinophils # (Manual) Basophils # (Manual) PT INR APTT ABG pH ABG pO2 ABG HCO3 ABG O2 Saturation ABG Base Excess ABG Hemoglobin Oxyhemoglobin Sodium Potassium Chloride Carbon Dioxide BUN Creatinine Glucose POC Glucose 124 H 118 H 130 H Lactic Acid Calcium Ionized Calcium Phosphorus Magnesium Total Bilirubin AST ALT Alkaline Phosphatase Ammonia Total Creatine Kinase CK-MB (CK-2) CK-MB (CK-2) Rel Index Total Protein Albumin Urine WBC (Auto) Vancomycin Trough Salicylates Acetaminophen Plasma/Serum Alcohol Crossmatch 02/14/20 02/14/20 02/16/20 11:19 16:16 00:58 WBC RBC Hgb Hct MCH RDW Plt Count Lymph % (Auto) [place] % (Auto) [place] # Baso # Seg Neutrophils % Seg Neuts % (Manual) Lymphocytes % (Manual) Monocytes % (Manual) Seg Neutrophils # Seg Neutrophils # Man Lymphocytes # (Manual) Monocytes # (Manual) Eosinophils # (Manual) Basophils # (Manual) PT INR APTT ABG pH ABG pO2 ABG HCO3 ABG O2 Saturation ABG Base Excess ABG Hemoglobin Oxyhemoglobin Sodium Potassium Chloride Carbon Dioxide BUN Creatinine Glucose POC Glucose 135 H 119 H 121 H Lactic Acid Calcium Ionized Calcium Phosphorus Magnesium Total Bilirubin AST ALT Alkaline Phosphatase Ammonia Total Creatine Kinase CK-MB (CK-2) CK-MB (CK-2) Rel Index Total Protein Albumin Urine WBC (Auto) Vancomycin Trough Salicylates Acetaminophen Plasma/Serum Alcohol Crossmatch 02/16/20 02/16/20 02/16/20 12:12 18:22 23:51 WBC RBC Hgb Hct MCH RDW Plt Count Lymph % (Auto) [place] % (Auto) [place] # Baso # Seg Neutrophils % Seg Neuts % (Manual) Lymphocytes % (Manual) Monocytes % (Manual) Seg Neutrophils # Seg Neutrophils # Man Lymphocytes # (Manual) Monocytes # (Manual) Eosinophils # (Manual) Basophils # (Manual) PT INR APTT ABG pH ABG pO2 ABG HCO3 ABG O2 Saturation ABG Base Excess ABG Hemoglobin Oxyhemoglobin Sodium Potassium Chloride Carbon Dioxide BUN Creatinine Glucose POC Glucose 107 H 106 H 128 H Lactic Acid Calcium Ionized Calcium Phosphorus Magnesium Total Bilirubin AST ALT Alkaline Phosphatase Ammonia Total Creatine Kinase CK-MB (CK-2) CK-MB (CK-2) Rel Index Total Protein Albumin Urine WBC (Auto) Vancomycin Trough Salicylates Acetaminophen Plasma/Serum Alcohol Crossmatch 02/17/20 02/17/20 02/17/20 05:50 07:57 07:57 WBC 12.6 H RBC 3.52 L Hgb Hct MCH RDW 15.3 H Plt Count 643 H Lymph % (Auto) [place] % (Auto) 8.0 H [place] # 1.0 H Baso # Seg Neutrophils % Seg Neuts % (Manual) Lymphocytes % (Manual) Monocytes % (Manual) Seg Neutrophils # 8.5 H Seg Neutrophils # Man Lymphocytes # (Manual) Monocytes # (Manual) Eosinophils # (Manual) Basophils # (Manual) PT INR APTT ABG pH ABG pO2 ABG HCO3 ABG O2 Saturation ABG Base Excess ABG Hemoglobin Oxyhemoglobin Sodium Potassium Chloride 96.9 L Carbon Dioxide BUN 21 H Creatinine 0.4 L Glucose 113 H POC Glucose 116 H Lactic Acid Calcium 10.5 H Ionized Calcium Phosphorus Magnesium Total Bilirubin AST ALT Alkaline Phosphatase Ammonia Total Creatine Kinase CK-MB (CK-2) CK-MB (CK-2) Rel Index Total Protein Albumin Urine WBC (Auto) Vancomycin Trough Salicylates Acetaminophen Plasma/Serum Alcohol Crossmatch 02/17/20 02/17/20 02/18/20 12:05 18:16 00:13 WBC RBC Hgb Hct MCH RDW Plt Count Lymph % (Auto) [place] % (Auto) [place] # Baso # Seg Neutrophils % Seg Neuts % (Manual) Lymphocytes % (Manual) Monocytes % (Manual) Seg Neutrophils # Seg Neutrophils # Man Lymphocytes # (Manual) Monocytes # (Manual) Eosinophils # (Manual) Basophils # (Manual) PT INR APTT ABG pH ABG pO2 ABG HCO3 ABG O2 Saturation ABG Base Excess ABG Hemoglobin Oxyhemoglobin Sodium Potassium Chloride Carbon Dioxide BUN Creatinine Glucose POC Glucose 139 H 127 H 144 H Lactic Acid Calcium Ionized Calcium Phosphorus Magnesium Total Bilirubin AST ALT Alkaline Phosphatase Ammonia Total Creatine Kinase CK-MB (CK-2) CK-MB (CK-2) Rel Index Total Protein Albumin Urine WBC (Auto) Vancomycin Trough Salicylates Acetaminophen Plasma/Serum Alcohol Crossmatch 02/18/20 02/18/20 02/19/20 17:41 23:28 05:17 WBC RBC Hgb Hct MCH RDW Plt Count Lymph % (Auto) [place] % (Auto) [place] # Baso # Seg Neutrophils % Seg Neuts % (Manual) Lymphocytes % (Manual) Monocytes % (Manual) Seg Neutrophils # Seg Neutrophils # Man Lymphocytes # (Manual) Monocytes # (Manual) Eosinophils # (Manual) Basophils # (Manual) PT INR APTT ABG pH ABG pO2 ABG HCO3 ABG O2 Saturation ABG Base Excess ABG Hemoglobin Oxyhemoglobin Sodium Potassium Chloride Carbon Dioxide BUN Creatinine Glucose POC Glucose 118 H 166 H 116 H Lactic Acid Calcium Ionized Calcium Phosphorus Magnesium Total Bilirubin AST ALT Alkaline Phosphatase Ammonia Total Creatine Kinase CK-MB (CK-2) CK-MB (CK-2) Rel Index Total Protein Albumin Urine WBC (Auto) Vancomycin Trough Salicylates Acetaminophen Plasma/Serum Alcohol Crossmatch 02/19/20 02/19/20 02/20/20 12:33 17:02 00:12 WBC RBC Hgb Hct MCH RDW Plt Count Lymph % (Auto) [place] % (Auto) [place] # Baso # Seg Neutrophils % Seg Neuts % (Manual) Lymphocytes % (Manual) Monocytes % (Manual) Seg Neutrophils # Seg Neutrophils # Man Lymphocytes # (Manual) Monocytes # (Manual) Eosinophils # (Manual) Basophils # (Manual) PT INR APTT ABG pH ABG pO2 ABG HCO3 ABG O2 Saturation ABG Base Excess ABG Hemoglobin Oxyhemoglobin Sodium Potassium Chloride Carbon Dioxide BUN Creatinine Glucose POC Glucose 115 H 108 H 153 H Lactic Acid Calcium Ionized Calcium Phosphorus Magnesium Total Bilirubin AST ALT Alkaline Phosphatase Ammonia Total Creatine Kinase CK-MB (CK-2) CK-MB (CK-2) Rel Index Total Protein Albumin Urine WBC (Auto) Vancomycin Trough Salicylates Acetaminophen Plasma/Serum Alcohol Crossmatch 02/20/20 02/20/20 02/21/20 12:00 23:13 05:07 WBC RBC Hgb Hct MCH RDW Plt Count Lymph % (Auto) [place] % (Auto) [place] # Baso # Seg Neutrophils % Seg Neuts % (Manual) Lymphocytes % (Manual) Monocytes % (Manual) Seg Neutrophils # Seg Neutrophils # Man Lymphocytes # (Manual) Monocytes # (Manual) Eosinophils # (Manual) Basophils # (Manual) PT INR APTT ABG pH ABG pO2 ABG HCO3 ABG O2 Saturation ABG Base Excess ABG Hemoglobin Oxyhemoglobin Sodium Potassium Chloride Carbon Dioxide BUN Creatinine Glucose POC Glucose 171 H 129 H 116 H Lactic Acid Calcium Ionized Calcium Phosphorus Magnesium Total Bilirubin AST ALT Alkaline Phosphatase Ammonia Total Creatine Kinase CK-MB (CK-2) CK-MB (CK-2) Rel Index Total Protein Albumin Urine WBC (Auto) Vancomycin Trough Salicylates Acetaminophen Plasma/Serum Alcohol Crossmatch 02/21/20 02/22/20 02/22/20 12:15 00:42 06:30 WBC RBC Hgb Hct MCH RDW Plt Count Lymph % (Auto) [place] % (Auto) [place] # Baso # Seg Neutrophils % Seg Neuts % (Manual) Lymphocytes % (Manual) Monocytes % (Manual) Seg Neutrophils # Seg Neutrophils # Man Lymphocytes # (Manual) Monocytes # (Manual) Eosinophils # (Manual) Basophils # (Manual) PT INR APTT ABG pH ABG pO2 ABG HCO3 ABG O2 Saturation ABG Base Excess ABG Hemoglobin Oxyhemoglobin Sodium Potassium Chloride Carbon Dioxide BUN Creatinine Glucose POC Glucose 124 H 142 H 117 H Lactic Acid Calcium Ionized Calcium Phosphorus Magnesium Total Bilirubin AST ALT Alkaline Phosphatase Ammonia Total Creatine Kinase CK-MB (CK-2) CK-MB (CK-2) Rel Index Total Protein Albumin Urine WBC (Auto) Vancomycin Trough Salicylates Acetaminophen Plasma/Serum Alcohol Crossmatch 02/22/20 02/22/20 02/23/20 12:20 17:55 12:46 WBC RBC Hgb Hct MCH RDW Plt Count Lymph % (Auto) [place] % (Auto) [place] # Baso # Seg Neutrophils % Seg Neuts % (Manual) Lymphocytes % (Manual) Monocytes % (Manual) Seg Neutrophils # Seg Neutrophils # Man Lymphocytes # (Manual) Monocytes # (Manual) Eosinophils # (Manual) Basophils # (Manual) PT INR APTT ABG pH ABG pO2 ABG HCO3 ABG O2 Saturation ABG Base Excess ABG Hemoglobin Oxyhemoglobin Sodium Potassium Chloride Carbon Dioxide BUN Creatinine Glucose POC Glucose 121 H 157 H 112 H Lactic Acid Calcium Ionized Calcium Phosphorus Magnesium Total Bilirubin AST ALT Alkaline Phosphatase Ammonia Total Creatine Kinase CK-MB (CK-2) CK-MB (CK-2) Rel Index Total Protein Albumin Urine WBC (Auto) Vancomycin Trough Salicylates Acetaminophen Plasma/Serum Alcohol Crossmatch 02/23/20 02/24/20 02/24/20 16:47 00:38 07:00 WBC RBC Hgb Hct MCH RDW Plt Count Lymph % (Auto) [place] % (Auto) [place] # Baso # Seg Neutrophils % Seg Neuts % (Manual) Lymphocytes % (Manual) Monocytes % (Manual) Seg Neutrophils # Seg Neutrophils # Man Lymphocytes # (Manual) Monocytes # (Manual) Eosinophils # (Manual) Basophils # (Manual) PT INR APTT ABG pH ABG pO2 ABG HCO3 ABG O2 Saturation ABG Base Excess ABG Hemoglobin Oxyhemoglobin Sodium Potassium Chloride Carbon Dioxide BUN Creatinine Glucose POC Glucose 142 H 138 H 118 H Lactic Acid Calcium Ionized Calcium Phosphorus Magnesium Total Bilirubin AST ALT Alkaline Phosphatase Ammonia Total Creatine Kinase CK-MB (CK-2) CK-MB (CK-2) Rel Index Total Protein Albumin Urine WBC (Auto) Vancomycin Trough Salicylates Acetaminophen Plasma/Serum Alcohol Crossmatch 02/24/20 02/24/20 02/25/20 11:41 18:33 18:24 WBC RBC Hgb Hct MCH RDW Plt Count Lymph % (Auto) [place] % (Auto) [place] # Baso # Seg Neutrophils % Seg Neuts % (Manual) Lymphocytes % (Manual) Monocytes % (Manual) Seg Neutrophils # Seg Neutrophils # Man Lymphocytes # (Manual) Monocytes # (Manual) Eosinophils # (Manual) Basophils # (Manual) PT INR APTT ABG pH ABG pO2 ABG HCO3 ABG O2 Saturation ABG Base Excess ABG Hemoglobin Oxyhemoglobin Sodium Potassium Chloride Carbon Dioxide BUN Creatinine Glucose POC Glucose 152 H 126 H 120 H Lactic Acid Calcium Ionized Calcium Phosphorus Magnesium Total Bilirubin AST ALT Alkaline Phosphatase Ammonia Total Creatine Kinase CK-MB (CK-2) CK-MB (CK-2) Rel Index Total Protein Albumin Urine WBC (Auto) Vancomycin Trough Salicylates Acetaminophen Plasma/Serum Alcohol Crossmatch 02/25/20 02/26/20 02/26/20 23:40 05:46 11:32 WBC RBC Hgb Hct MCH RDW Plt Count Lymph % (Auto) [place] % (Auto) [place] # Baso # Seg Neutrophils % Seg Neuts % (Manual) Lymphocytes % (Manual) Monocytes % (Manual) Seg Neutrophils # Seg Neutrophils # Man Lymphocytes # (Manual) Monocytes # (Manual) Eosinophils # (Manual) Basophils # (Manual) PT INR APTT ABG pH ABG pO2 ABG HCO3 ABG O2 Saturation ABG Base Excess ABG Hemoglobin Oxyhemoglobin Sodium Potassium Chloride Carbon Dioxide BUN Creatinine Glucose POC Glucose 114 H 113 H 106 H Lactic Acid Calcium Ionized Calcium Phosphorus Magnesium Total Bilirubin AST ALT Alkaline Phosphatase Ammonia Total Creatine Kinase CK-MB (CK-2) CK-MB (CK-2) Rel Index Total Protein Albumin Urine WBC (Auto) Vancomycin Trough Salicylates Acetaminophen Plasma/Serum Alcohol Crossmatch 02/26/20 02/27/20 02/27/20 16:14 11:53 17:54 WBC RBC Hgb Hct MCH RDW Plt Count Lymph % (Auto) [place] % (Auto) [place] # Baso # Seg Neutrophils % Seg Neuts % (Manual) Lymphocytes % (Manual) Monocytes % (Manual) Seg Neutrophils # Seg Neutrophils # Man Lymphocytes # (Manual) Monocytes # (Manual) Eosinophils # (Manual) Basophils # (Manual) PT INR APTT ABG pH ABG pO2 ABG HCO3 ABG O2 Saturation ABG Base Excess ABG Hemoglobin Oxyhemoglobin Sodium Potassium Chloride Carbon Dioxide BUN Creatinine Glucose POC Glucose 123 H 134 H 119 H Lactic Acid Calcium Ionized Calcium Phosphorus Magnesium Total Bilirubin AST ALT Alkaline Phosphatase Ammonia Total Creatine Kinase CK-MB (CK-2) CK-MB (CK-2) Rel Index Total Protein Albumin Urine WBC (Auto) Vancomycin Trough Salicylates Acetaminophen Plasma/Serum Alcohol Crossmatch 02/27/20 02/28/20 02/28/20 23:51 03:40 03:40 WBC RBC 3.58 L Hgb Hct MCH RDW Plt Count 575 H Lymph % (Auto) [place] % (Auto) 9.4 H [place] # 1.0 H Baso # Seg Neutrophils % Seg Neuts % (Manual) Lymphocytes % (Manual) Monocytes % (Manual) Seg Neutrophils # Seg Neutrophils # Man Lymphocytes # (Manual) Monocytes # (Manual) Eosinophils # (Manual) Basophils # (Manual) PT INR APTT ABG pH ABG pO2 ABG HCO3 ABG O2 Saturation ABG Base Excess ABG Hemoglobin Oxyhemoglobin Sodium Potassium Chloride Carbon Dioxide BUN 23 H Creatinine 0.5 L Glucose 114 H POC Glucose 138 H Lactic Acid Calcium Ionized Calcium Phosphorus Magnesium Total Bilirubin AST ALT Alkaline Phosphatase Ammonia Total Creatine Kinase CK-MB (CK-2) CK-MB (CK-2) Rel Index Total Protein Albumin Urine WBC (Auto) Vancomycin Trough Salicylates Acetaminophen Plasma/Serum Alcohol Crossmatch 02/28/20 02/28/20 02/29/20 12:37 18:38 05:50 WBC RBC Hgb Hct MCH RDW Plt Count Lymph % (Auto) [place] % (Auto) [place] # Baso # Seg Neutrophils % Seg Neuts % (Manual) Lymphocytes % (Manual) Monocytes % (Manual) Seg Neutrophils # Seg Neutrophils # Man Lymphocytes # (Manual) Monocytes # (Manual) Eosinophils # (Manual) Basophils # (Manual) PT INR APTT ABG pH ABG pO2 ABG HCO3 ABG O2 Saturation ABG Base Excess ABG Hemoglobin Oxyhemoglobin Sodium Potassium Chloride Carbon Dioxide BUN Creatinine Glucose POC Glucose 115 H 120 H 114 H Lactic Acid Calcium Ionized Calcium Phosphorus Magnesium Total Bilirubin AST ALT Alkaline Phosphatase Ammonia Total Creatine Kinase CK-MB (CK-2) CK-MB (CK-2) Rel Index Total Protein Albumin Urine WBC (Auto) Vancomycin Trough Salicylates Acetaminophen Plasma/Serum Alcohol Crossmatch 02/29/20 02/29/20 03/01/20 18:53 23:10 06:53 WBC RBC Hgb Hct MCH RDW Plt Count Lymph % (Auto) [place] % (Auto) [place] # Baso # Seg Neutrophils % Seg Neuts % (Manual) Lymphocytes % (Manual) Monocytes % (Manual) Seg Neutrophils # Seg Neutrophils # Man Lymphocytes # (Manual) Monocytes # (Manual) Eosinophils # (Manual) Basophils # (Manual) PT INR APTT ABG pH ABG pO2 ABG HCO3 ABG O2 Saturation ABG Base Excess ABG Hemoglobin Oxyhemoglobin Sodium Potassium Chloride Carbon Dioxide BUN Creatinine Glucose POC Glucose 112 H 147 H 131 H Lactic Acid Calcium Ionized Calcium Phosphorus Magnesium Total Bilirubin AST ALT Alkaline Phosphatase Ammonia Total Creatine Kinase CK-MB (CK-2) CK-MB (CK-2) Rel Index Total Protein Albumin Urine WBC (Auto) Vancomycin Trough Salicylates Acetaminophen Plasma/Serum Alcohol Crossmatch 03/01/20 03/01/20 03/02/20 17:31 18:35 00:10 WBC RBC Hgb Hct MCH RDW Plt Count Lymph % (Auto) [place] % (Auto) [place] # Baso # Seg Neutrophils % Seg Neuts % (Manual) Lymphocytes % (Manual) Monocytes % (Manual) Seg Neutrophils # Seg Neutrophils # Man Lymphocytes # (Manual) Monocytes # (Manual) Eosinophils # (Manual) Basophils # (Manual) PT INR APTT ABG pH ABG pO2 ABG HCO3 ABG O2 Saturation ABG Base Excess ABG Hemoglobin Oxyhemoglobin Sodium Potassium Chloride Carbon Dioxide BUN Creatinine Glucose POC Glucose 61 L 129 H 117 H Lactic Acid Calcium Ionized Calcium Phosphorus Magnesium Total Bilirubin AST ALT Alkaline Phosphatase Ammonia Total Creatine Kinase CK-MB (CK-2) CK-MB (CK-2) Rel Index Total Protein Albumin Urine WBC (Auto) Vancomycin Trough Salicylates Acetaminophen Plasma/Serum Alcohol Crossmatch 03/02/20 03/02/20 03/02/20 06:56 12:02 18:42 WBC RBC Hgb Hct MCH RDW Plt Count Lymph % (Auto) [place] % (Auto) [place] # Baso # Seg Neutrophils % Seg Neuts % (Manual) Lymphocytes % (Manual) Monocytes % (Manual) Seg Neutrophils # Seg Neutrophils # Man Lymphocytes # (Manual) Monocytes # (Manual) Eosinophils # (Manual) Basophils # (Manual) PT INR APTT ABG pH ABG pO2 ABG HCO3 ABG O2 Saturation ABG Base Excess ABG Hemoglobin Oxyhemoglobin Sodium Potassium Chloride Carbon Dioxide BUN Creatinine Glucose POC Glucose 125 H 111 H 126 H Lactic Acid Calcium Ionized Calcium Phosphorus Magnesium Total Bilirubin AST ALT Alkaline Phosphatase Ammonia Total Creatine Kinase CK-MB (CK-2) CK-MB (CK-2) Rel Index Total Protein Albumin Urine WBC (Auto) Vancomycin Trough Salicylates Acetaminophen Plasma/Serum Alcohol Crossmatch 03/03/20 03/03/20 03/03/20 00:18 06:11 11:50 WBC RBC Hgb Hct MCH RDW Plt Count Lymph % (Auto) [place] % (Auto) [place] # Baso # Seg Neutrophils % Seg Neuts % (Manual) Lymphocytes % (Manual) Monocytes % (Manual) Seg Neutrophils # Seg Neutrophils # Man Lymphocytes # (Manual) Monocytes # (Manual) Eosinophils # (Manual) Basophils # (Manual) PT INR APTT ABG pH ABG pO2 ABG HCO3 ABG O2 Saturation ABG Base Excess ABG Hemoglobin Oxyhemoglobin Sodium Potassium Chloride Carbon Dioxide BUN Creatinine Glucose POC Glucose 139 H 155 H 118 H Lactic Acid Calcium Ionized Calcium Phosphorus Magnesium Total Bilirubin AST ALT Alkaline Phosphatase Ammonia Total Creatine Kinase CK-MB (CK-2) CK-MB (CK-2) Rel Index Total Protein Albumin Urine WBC (Auto) Vancomycin Trough Salicylates Acetaminophen Plasma/Serum Alcohol Crossmatch 03/03/20 03/03/20 03/04/20 18:09 23:46 05:37 WBC RBC Hgb Hct MCH RDW Plt Count Lymph % (Auto) [place] % (Auto) [place] # Baso # Seg Neutrophils % Seg Neuts % (Manual) Lymphocytes % (Manual) Monocytes % (Manual) Seg Neutrophils # Seg Neutrophils # Man Lymphocytes # (Manual) Monocytes # (Manual) Eosinophils # (Manual) Basophils # (Manual) PT INR APTT ABG pH ABG pO2 ABG HCO3 ABG O2 Saturation ABG Base Excess ABG Hemoglobin Oxyhemoglobin Sodium Potassium Chloride Carbon Dioxide BUN Creatinine Glucose POC Glucose 109 H 132 H 111 H Lactic Acid Calcium Ionized Calcium Phosphorus Magnesium Total Bilirubin AST ALT Alkaline Phosphatase Ammonia Total Creatine Kinase CK-MB (CK-2) CK-MB (CK-2) Rel Index Total Protein Albumin Urine WBC (Auto) Vancomycin Trough Salicylates Acetaminophen Plasma/Serum Alcohol Crossmatch 03/04/20 03/04/20 03/05/20 11:38 17:54 00:14 WBC RBC Hgb Hct MCH RDW Plt Count Lymph % (Auto) [place] % (Auto) [place] # Baso # Seg Neutrophils % Seg Neuts % (Manual) Lymphocytes % (Manual) Monocytes % (Manual) Seg Neutrophils # Seg Neutrophils # Man Lymphocytes # (Manual) Monocytes # (Manual) Eosinophils # (Manual) Basophils # (Manual) PT INR APTT ABG pH ABG pO2 ABG HCO3 ABG O2 Saturation ABG Base Excess ABG Hemoglobin Oxyhemoglobin Sodium Potassium Chloride Carbon Dioxide BUN Creatinine Glucose POC Glucose 138 H 118 H 134 H Lactic Acid Calcium Ionized Calcium Phosphorus Magnesium Total Bilirubin AST ALT Alkaline Phosphatase Ammonia Total Creatine Kinase CK-MB (CK-2) CK-MB (CK-2) Rel Index Total Protein Albumin Urine WBC (Auto) Vancomycin Trough Salicylates Acetaminophen Plasma/Serum Alcohol Crossmatch 03/06/20 03/06/20 03/06/20 03:37 03:37 06:29 WBC RBC Hgb Hct MCH RDW Plt Count 550 H Lymph % (Auto) [place] % (Auto) 9.1 H [place] # Baso # Seg Neutrophils % Seg Neuts % (Manual) Lymphocytes % (Manual) Monocytes % (Manual) Seg Neutrophils # Seg Neutrophils # Man Lymphocytes # (Manual) Monocytes # (Manual) Eosinophils # (Manual) Basophils # (Manual) PT INR APTT ABG pH ABG pO2 ABG HCO3 ABG O2 Saturation ABG Base Excess ABG Hemoglobin Oxyhemoglobin Sodium Potassium Chloride Carbon Dioxide BUN 26 H Creatinine 0.5 L Glucose POC Glucose 128 H Lactic Acid Calcium 10.4 H Ionized Calcium Phosphorus Magnesium Total Bilirubin AST ALT Alkaline Phosphatase Ammonia Total Creatine Kinase CK-MB (CK-2) CK-MB (CK-2) Rel Index Total Protein Albumin Urine WBC (Auto) Vancomycin Trough Salicylates Acetaminophen Plasma/Serum Alcohol Crossmatch 03/06/20 03/07/20 03/07/20 17:47 06:37 12:37 WBC RBC Hgb Hct MCH RDW Plt Count Lymph % (Auto) [place] % (Auto) [place] # Baso # Seg Neutrophils % Seg Neuts % (Manual) Lymphocytes % (Manual) Monocytes % (Manual) Seg Neutrophils # Seg Neutrophils # Man Lymphocytes # (Manual) Monocytes # (Manual) Eosinophils # (Manual) Basophils # (Manual) PT INR APTT ABG pH ABG pO2 ABG HCO3 ABG O2 Saturation ABG Base Excess ABG Hemoglobin Oxyhemoglobin Sodium Potassium Chloride Carbon Dioxide BUN Creatinine Glucose POC Glucose 120 H 113 H 118 H Lactic Acid Calcium Ionized Calcium Phosphorus Magnesium Total Bilirubin AST ALT Alkaline Phosphatase Ammonia Total Creatine Kinase CK-MB (CK-2) CK-MB (CK-2) Rel Index Total Protein Albumin Urine WBC (Auto) Vancomycin Trough Salicylates Acetaminophen Plasma/Serum Alcohol Crossmatch 03/07/20 03/08/20 03/08/20 16:41 00:55 06:25 WBC RBC Hgb Hct MCH RDW Plt Count Lymph % (Auto) [place] % (Auto) [place] # Baso # Seg Neutrophils % Seg Neuts % (Manual) Lymphocytes % (Manual) Monocytes % (Manual) Seg Neutrophils # Seg Neutrophils # Man Lymphocytes # (Manual) Monocytes # (Manual) Eosinophils # (Manual) Basophils # (Manual) PT INR APTT ABG pH ABG pO2 ABG HCO3 ABG O2 Saturation ABG Base Excess ABG Hemoglobin Oxyhemoglobin Sodium Potassium Chloride Carbon Dioxide BUN Creatinine Glucose POC Glucose 108 H 139 H 127 H Lactic Acid Calcium Ionized Calcium Phosphorus Magnesium Total Bilirubin AST ALT Alkaline Phosphatase Ammonia Total Creatine Kinase CK-MB (CK-2) CK-MB (CK-2) Rel Index Total Protein Albumin Urine WBC (Auto) Vancomycin Trough Salicylates Acetaminophen Plasma/Serum Alcohol Crossmatch 03/08/20 03/08/20 03/08/20 12:49 13:25 17:13 WBC RBC Hgb Hct MCH RDW Plt Count Lymph % (Auto) [place] % (Auto) [place] # Baso # Seg Neutrophils % Seg Neuts % (Manual) Lymphocytes % (Manual) Monocytes % (Manual) Seg Neutrophils # Seg Neutrophils # Man Lymphocytes # (Manual) Monocytes # (Manual) Eosinophils # (Manual) Basophils # (Manual) PT INR APTT ABG pH ABG pO2 71.1 L ABG HCO3 26.2 H ABG O2 Saturation ABG Base Excess ABG Hemoglobin 8.2 L Oxyhemoglobin 94.8 L Sodium Potassium Chloride Carbon Dioxide BUN Creatinine Glucose POC Glucose 127 H 147 H Lactic Acid Calcium Ionized Calcium Phosphorus Magnesium Total Bilirubin AST ALT Alkaline Phosphatase Ammonia Total Creatine Kinase CK-MB (CK-2) CK-MB (CK-2) Rel Index Total Protein Albumin Urine WBC (Auto) Vancomycin Trough Salicylates Acetaminophen Plasma/Serum Alcohol Crossmatch 03/09/20 03/09/20 03/09/20 06:28 08:36 23:58 WBC RBC Hgb Hct MCH RDW Plt Count Lymph % (Auto) [place] % (Auto) [place] # Baso # Seg Neutrophils % Seg Neuts % (Manual) Lymphocytes % (Manual) Monocytes % (Manual) Seg Neutrophils # Seg Neutrophils # Man Lymphocytes # (Manual) Monocytes # (Manual) Eosinophils # (Manual) Basophils # (Manual) PT INR APTT ABG pH ABG pO2 ABG HCO3 ABG O2 Saturation ABG Base Excess ABG Hemoglobin Oxyhemoglobin Sodium Potassium Chloride Carbon Dioxide BUN Creatinine Glucose POC Glucose 139 H 167 H 122 H Lactic Acid Calcium Ionized Calcium Phosphorus Magnesium Total Bilirubin AST ALT Alkaline Phosphatase Ammonia Total Creatine Kinase CK-MB (CK-2) CK-MB (CK-2) Rel Index Total Protein Albumin Urine WBC (Auto) Vancomycin Trough Salicylates Acetaminophen Plasma/Serum Alcohol Crossmatch 03/10/20 03/10/20 03/11/20 06:32 23:27 06:23 WBC RBC Hgb Hct MCH RDW Plt Count Lymph % (Auto) [place] % (Auto) [place] # Baso # Seg Neutrophils % Seg Neuts % (Manual) Lymphocytes % (Manual) Monocytes % (Manual) Seg Neutrophils # Seg Neutrophils # Man Lymphocytes # (Manual) Monocytes # (Manual) Eosinophils # (Manual) Basophils # (Manual) PT INR APTT ABG pH ABG pO2 ABG HCO3 ABG O2 Saturation ABG Base Excess ABG Hemoglobin Oxyhemoglobin Sodium Potassium Chloride Carbon Dioxide BUN Creatinine Glucose POC Glucose 165 H 115 H 139 H Lactic Acid Calcium Ionized Calcium Phosphorus Magnesium Total Bilirubin AST ALT Alkaline Phosphatase Ammonia Total Creatine Kinase CK-MB (CK-2) CK-MB (CK-2) Rel Index Total Protein Albumin Urine WBC (Auto) Vancomycin Trough Salicylates Acetaminophen Plasma/Serum Alcohol Crossmatch 03/11/20 03/11/20 03/12/20 12:29 18:02 04:53 WBC RBC Hgb Hct MCH RDW Plt Count 625 H Lymph % (Auto) [place] % (Auto) [place] # Baso # Seg Neutrophils % Seg Neuts % (Manual) Lymphocytes % (Manual) Monocytes % (Manual) Seg Neutrophils # Seg Neutrophils # Man Lymphocytes # (Manual) Monocytes # (Manual) Eosinophils # (Manual) Basophils # (Manual) PT INR APTT ABG pH ABG pO2 ABG HCO3 ABG O2 Saturation ABG Base Excess ABG Hemoglobin Oxyhemoglobin Sodium Potassium Chloride Carbon Dioxide BUN Creatinine Glucose POC Glucose 164 H 113 H Lactic Acid Calcium Ionized Calcium Phosphorus Magnesium Total Bilirubin AST ALT Alkaline Phosphatase Ammonia Total Creatine Kinase CK-MB (CK-2) CK-MB (CK-2) Rel Index Total Protein Albumin Urine WBC (Auto) Vancomycin Trough Salicylates Acetaminophen Plasma/Serum Alcohol Crossmatch 03/12/20 03/12/20 03/12/20 04:53 06:26 12:38 WBC RBC Hgb Hct MCH RDW Plt Count Lymph % (Auto) [place] % (Auto) [place] # Baso # Seg Neutrophils % Seg Neuts % (Manual) Lymphocytes % (Manual) Monocytes % (Manual) Seg Neutrophils # Seg Neutrophils # Man Lymphocytes # (Manual) Monocytes # (Manual) Eosinophils # (Manual) Basophils # (Manual) PT INR APTT ABG pH ABG pO2 ABG HCO3 ABG O2 Saturation ABG Base Excess ABG Hemoglobin Oxyhemoglobin Sodium Potassium 5.3 H Chloride Carbon Dioxide BUN 34 H Creatinine Glucose 159 H POC Glucose 149 H 130 H Lactic Acid Calcium 10.7 H Ionized Calcium Phosphorus Magnesium Total Bilirubin AST ALT Alkaline Phosphatase Ammonia Total Creatine Kinase CK-MB (CK-2) CK-MB (CK-2) Rel Index Total Protein Albumin Urine WBC (Auto) Vancomycin Trough Salicylates Acetaminophen Plasma/Serum Alcohol Crossmatch 03/13/20 03/13/20 03/13/20 03:50 06:12 18:11 WBC RBC Hgb Hct MCH RDW Plt Count Lymph % (Auto) [place] % (Auto) [place] # Baso # Seg Neutrophils % Seg Neuts % (Manual) Lymphocytes % (Manual) Monocytes % (Manual) Seg Neutrophils # Seg Neutrophils # Man Lymphocytes # (Manual) Monocytes # (Manual) Eosinophils # (Manual) Basophils # (Manual) PT INR APTT ABG pH ABG pO2 ABG HCO3 ABG O2 Saturation ABG Base Excess ABG Hemoglobin Oxyhemoglobin Sodium Potassium Chloride Carbon Dioxide 20 L BUN 30 H Creatinine 0.6 L Glucose 153 H POC Glucose 124 H 111 H Lactic Acid Calcium Ionized Calcium Phosphorus Magnesium Total Bilirubin AST ALT Alkaline Phosphatase Ammonia Total Creatine Kinase CK-MB (CK-2) CK-MB (CK-2) Rel Index Total Protein Albumin Urine WBC (Auto) Vancomycin Trough Salicylates Acetaminophen Plasma/Serum Alcohol Crossmatch 03/14/20 03/14/20 03/15/20 12:01 15:40 00:02 WBC RBC Hgb Hct MCH RDW Plt Count Lymph % (Auto) [place] % (Auto) [place] # Baso # Seg Neutrophils % Seg Neuts % (Manual) Lymphocytes % (Manual) Monocytes % (Manual) Seg Neutrophils # Seg Neutrophils # Man Lymphocytes # (Manual) Monocytes # (Manual) Eosinophils # (Manual) Basophils # (Manual) PT INR APTT ABG pH ABG pO2 ABG HCO3 ABG O2 Saturation ABG Base Excess ABG Hemoglobin Oxyhemoglobin Sodium Potassium Chloride Carbon Dioxide BUN Creatinine Glucose POC Glucose 116 H 125 H 143 H Lactic Acid Calcium Ionized Calcium Phosphorus Magnesium Total Bilirubin AST ALT Alkaline Phosphatase Ammonia Total Creatine Kinase CK-MB (CK-2) CK-MB (CK-2) Rel Index Total Protein Albumin Urine WBC (Auto) Vancomycin Trough Salicylates Acetaminophen Plasma/Serum Alcohol Crossmatch 0603/15/20 03/16/20 12:03 18:14 12:14 WBC RBC Hgb Hct MCH RDW Plt Count Lymph % (Auto) [place] % (Auto) [place] # Baso # Seg Neutrophils % Seg Neuts % (Manual) Lymphocytes % (Manual) Monocytes % (Manual) Seg Neutrophils # Seg Neutrophils # Man Lymphocytes # (Manual) Monocytes # (Manual) Eosinophils # (Manual) Basophils # (Manual) PT INR APTT ABG pH ABG pO2 ABG HCO3 ABG O2 Saturation ABG Base Excess ABG Hemoglobin Oxyhemoglobin Sodium Potassium Chloride Carbon Dioxide BUN Creatinine Glucose POC Glucose 106 H 107 H 107 H Lactic Acid Calcium Ionized Calcium Phosphorus Magnesium Total Bilirubin AST ALT Alkaline Phosphatase Ammonia Total Creatine Kinase CK-MB (CK-2) CK-MB (CK-2) Rel Index Total Protein Albumin Urine WBC (Auto) Vancomycin Trough Salicylates Acetaminophen Plasma/Serum Alcohol Crossmatch 03/16/20 03/17/20 03/17/20 18:30 05:44 12:09 WBC RBC Hgb Hct MCH RDW Plt Count Lymph % (Auto) [place] % (Auto) [place] # Baso # Seg Neutrophils % Seg Neuts % (Manual) Lymphocytes % (Manual) Monocytes % (Manual) Seg Neutrophils # Seg Neutrophils # Man Lymphocytes # (Manual) Monocytes # (Manual) Eosinophils # (Manual) Basophils # (Manual) PT INR APTT ABG pH ABG pO2 ABG HCO3 ABG O2 Saturation ABG Base Excess ABG Hemoglobin Oxyhemoglobin Sodium Potassium Chloride Carbon Dioxide BUN Creatinine Glucose POC Glucose 128 H 114 H 120 H Lactic Acid Calcium Ionized Calcium Phosphorus Magnesium Total Bilirubin AST ALT Alkaline Phosphatase Ammonia Total Creatine Kinase CK-MB (CK-2) CK-MB (CK-2) Rel Index Total Protein Albumin Urine WBC (Auto) Vancomycin Trough Salicylates Acetaminophen Plasma/Serum Alcohol Crossmatch 03/17/20 03/17/20 03/18/20 16:51 23:36 07:07 WBC RBC Hgb Hct MCH RDW Plt Count Lymph % (Auto) [place] % (Auto) [place] # Baso # Seg Neutrophils % Seg Neuts % (Manual) Lymphocytes % (Manual) Monocytes % (Manual) Seg Neutrophils # Seg Neutrophils # Man Lymphocytes # (Manual) Monocytes # (Manual) Eosinophils # (Manual) Basophils # (Manual) PT INR APTT ABG pH ABG pO2 ABG HCO3 ABG O2 Saturation ABG Base Excess ABG Hemoglobin Oxyhemoglobin Sodium Potassium Chloride Carbon Dioxide BUN Creatinine Glucose POC Glucose 108 H 145 H 116 H Lactic Acid Calcium Ionized Calcium Phosphorus Magnesium Total Bilirubin AST ALT Alkaline Phosphatase Ammonia Total Creatine Kinase CK-MB (CK-2) CK-MB (CK-2) Rel Index Total Protein Albumin Urine WBC (Auto) Vancomycin Trough Salicylates Acetaminophen Plasma/Serum Alcohol Crossmatch Allied health notes reviewed: RT
[2020-03-18] MEDS: ALPRAZolam 1 MG TAB PO PRN (21:31)
[2020-03-18] MEDS: ENOXAPARIN 40 MG/0.4 ML INJ SUB-Q SCH (21:31)
[2020-03-18] MEDS: IPRATROPIUM/ALBUTEROL SULFATE 3 ML AMPUL.NEB IH SCH (22:49)
[2020-03-19] MEDS: IPRATROPIUM/ALBUTEROL SULFATE 3 ML AMPUL.NEB IH SCH ×4 (05:11→20:31)
[2020-03-19] MEDS: ALPRAZolam 1 MG TAB PO PRN ×3 (07:21→22:30)
[2020-03-19] MEDS: ACETYLCYSTEINE 20% 200 MG/1 ML *FOR INHALATION USE INHALATION SCH ×2 (07:57→20:30)
[2020-03-19] MEDS: GLYCOPYRROLATE 1 MG TAB PO SCH ×3 (09:15→22:33)
--- NOTE | 2020-03-19 09:40 | Progress Note ---
Assessment and Plan Assessment and plan: 54-year-old female with a past medical history of Hypertension, Depression, Tobacco use Disorder, Alcohol use Disorder as confirmed by Daughter and pt's mother presents to the hospital status post cardiac arrest at home. EMS found pt in [facility]. They were unable to intubate patient with a ET tube because she was clenching down therefore Joe airway placed. Per the ED physician who evaluated pt, Patient presented with a pulse, intermittent respirations, and bagging support via Joe airway with O2 sat of 100%. Accu-Chek of 71 obtained by EMS. She was intubated in the ER and called for admission. Following admission patient was diagnosed with anoxic brain injury, sepsis with MRSA bacteremia and MSSA pneumonia, alcoholic liver disease. Family member initially wished for full code then changed to DNR, patient treated with IV antibiotics for sepsis, status post trach and PEG on 12/13/19. Weaned off from the vent and put on T- piece. Patient is uninsured, waiting for placement, guarded prognosis. 03/07: Returning to service no acute changes are noted. Continue current management while awaiting placement. Intermittent labs. Base of neck also around tracheostomy tube preventing downgrading. Continue appropriate wound care. 03/08: Plan of care unchanged continues on aerosol trach collar 28% of oxygen. Continue wound care management placement still pending status decision. 03/09: Continue current treatment plan. Continue aspiration precaution 03/10: Continue current management, Restraints as patient still pulling, awaiting placement 03/11: Continue supportive care, intermittent suctioning and pulmonary toilet. awaiting placement. 03/12: Continue supportive care, Give a bolus of fluids due to Hypercalcemia, Monitor Hyperkalemia with labs in am, No arrhythmia. Patient vomiting, concern for aspiration, Chest xray ordered and no active disease noted. Keep HOB >45% 03/13: No evidence of aspiration on xray. Continue supportive care. 03/14: Continue supportive care. Capping trials to start. Discussed with patients nursing and case management to continue daily PT by the Rehab team. 03/15: Discussed again with staff to start capping trial. 03/16: Do not see any indication the capping trial has started will discuss with respiratory therapist. Continue restraints. Still awaiting family decision patient has had some remarkable improvement considering the fact that she was able to stay around night without restraints. We will continue daily trial of this method. Discussed plan with nursing staff 03/17: Continue current care. Currently continue restraints. Continue current management. Continue physical therapy daily. 03/18: Capping trial successful and will possibly get decannulated today. Continue placement. 03/19: Now decannulated and doing well. Begin discharge planning. / Anoxic brain injury: suspected CT head: No acute abnormality. EEG ordered showed Generalized slowing. No seizures or epileptiform activity. -Patient now opening her eyes, can speak and able to follow command -As needed haldol for agitation /Acute Respiratory failure -due to MSSA PNA -s/p intubation, s/p trach and PEG on 12/12 with mechanical ventilation, now on T-piece - CTA was done and negative for PE, - Echo quality is poor, showed diastolic dysfunction - continue weaning as tolerated -Continue appropriate and adequate tracheostomy care /Tracheostomy site ulceration -Continue appropriate wound management try to keep area dry. /Anemia, microcytic - Status post 3 units PRBC transfusion, H&H low stable /Acute metabolic encephalopathy/toxic encephalopathy due to the above - cont supportive care /Hyperammonemia - likely from liver disease related to EtOH abuse - Patient had elevated ammonia level and treated with lactulose /Metabolic Acidosis -Alcohol ketoacidosis vs hypoprofusion -Continue to monitor /ELevated LFTs, stable now - due to ischemic hepatitis. /Leucocytosis with sepsis - Source MRSA bacteremia and MSSA pneumonia. UA showed pyuria. RUQ US showed no ascites. - Repeat TTE negative for vegetation. Completed 7 days of Ceftriaxone on 11/29/2019. -Treated with Abx vancomycin 1 gm IV q 12 hour total 2 week till 12/30/2019 /Severe protein calorie malnutrition Dietitian consult to assist in management. /MSSA pneumonia: Status post vancomycin till 12/30/2019 /Alcohol use Disorder - given ongoing Alcohol use almost daily, s/p IV Thiamine - monitor /Severe hypokalemia -Repleted /Seizure disorder: treat with Keppra /H. Influenzae, tracheobronchitis, treated with abx /Moderate to severe fecal impaction - will add stool softner DNR CODE STATUS Disposition: prognosis guarded. Family okay for DNR, PT recommended subacute rehab, discharge pending on placement. Negative for COVID 19 History Interval history: Patient seen and examined, Now decannulated and doing well. Hospitalist Physical - Physical exam Narrative exam: General appearance: Present: Appears older than stated age - EENT Eyes: no scleral icterus, no conjunctival injection, pupil not reactive ENT: clear oral mucosa, dentition normal, no oropharyngeal erythema Ears: bilateral: normal - Neck Neck: trach on place with mild ulceration at the base. - Respiratory Respiratory effort: other dressing over the stoma Respiratory: bilateral: rales - Cardiovascular Rhythm: regular Heart Sounds: Present: S1 & S2. Absent: gallop, rub Extremities: pulses intact, No edema, normal color - Gastrointestinal General gastrointestinal: Present: soft, non-tender, non-distended, normal bowel sounds - Integumentary Integumentary: clear, warm, dry - Musculoskeletal Musculoskeletal: No joint swelling or tenderness - Neurologic Neurologic: other (2+ reflexes throughout). respond to commend and nods head. generalized weakness, verbal - Psychiatric Psychiatric: co-operative - Constitutional Vitals: Temp Pulse Resp BP Pulse Ox 97.0 F L 85 18 112/73 96 03/19/20 07:51 03/19/20 07:00 03/19/20 07:51 03/19/20 07:51 03/19/20 07:00 General appearance: Present: mild distress, cachectic, disheveled, other (Nonc ommunicative) HEART Score - HEART Score Troponin: Troponin T < 0.010 ng/mL (0.00-0.029) 11/22/19 23:27 Results - Labs CBC & Chem 7: 03/12/20 04:53 03/13/20 03:50 Labs: Laboratory Last Values WBC 9.1 K/mm3 (4.5-11.0) 03/12/20 04:53 RBC 3.90 M/mm3 (3.65-5.03) 03/12/20 04:53 Hgb 11.5 gm/dl (10.1-14.3) 03/12/20 04:53 Hct 34.2 % (30.3-42.9) 03/12/20 04:53 MCV 88 fl (79-97) 03/12/20 04:53 MCH 29 pg (28-32) 03/12/20 04:53 MCHC 34 % (30-34) 03/12/20 04:53 RDW 14.4 % (13.2-15.2) 03/12/20 04:53 Plt Count 625 K/mm3 (140-440) H 03/12/20 04:53 Lymph % (Auto) 27.8 % (13.4-35.0) 03/06/20 03:37 [place] % (Auto) 9.1 % (0.0-7.3) H 03/06/20 03:37 Eos % (Auto) 2.8 % (0.0-4.3) 03/06/20 03:37 Baso % (Auto) 0.7 % (0.0-1.8) 03/06/20 03:37 Lymph # 2.2 K/mm3 (1.2-5.4) 03/06/20 03:37 [place] # 0.7 K/mm3 (0.0-0.8) 03/06/20 03:37 Eos # 0.2 K/mm3 (0.0-0.4) 03/06/20 03:37 Baso # 0.1 K/mm3 (0.0-0.1) 03/06/20 03:37 Add Manual Diff Complete 12/25/19 03:47 Total Counted 200 12/25/19 03:47 Seg Neutrophils % 59.6 % (40.0-70.0) 03/06/20 03:37 Seg Neuts % (Manual) 97.5 % (40.0-70.0) H 12/25/19 03:47 Band Neutrophils % 0 % 12/25/19 03:47 Lymphocytes % (Manual) 1.0 % (13.4-35.0) L 12/25/19 03:47 Reactive Lymphs % (Man) 0 % 12/25/19 03:47 Monocytes % (Manual) 1.5 % (0.0-7.3) 12/25/19 03:47 Eosinophils % (Manual) 0 % (0.0-4.3) 12/25/19 03:47 Basophils % (Manual) 0 % (0.0-1.8) 12/25/19 03:47 Metamyelocytes % 0 % 12/25/19 03:47 Myelocytes % 0 % 12/25/19 03:47 Promyelocytes % 0 % 12/25/19 03:47 Blast Cells % 0 % 12/25/19 03:47 Nucleated RBC % Not Reportable 12/25/19 03:47 Seg Neutrophils # 4.8 K/mm3 (1.8-7.7) 03/06/20 03:37 Seg Neutrophils # Man 35.3 K/mm3 (1.8-7.7) H 12/25/19 03:47 Band Neutrophils # 0.0 K/mm3 12/25/19 03:47 Lymphocytes # (Manual) 0.4 K/mm3 (1.2-5.4) L 12/25/19 03:47 Abs React Lymphs (Man) 0.0 K/mm3 12/25/19 03:47 Monocytes # (Manual) 0.5 K/mm3 (0.0-0.8) 12/25/19 03:47 Eosinophils # (Manual) 0.0 K/mm3 (0.0-0.4) 12/25/19 03:47 Basophils # (Manual) 0.0 K/mm3 (0.0-0.1) 12/25/19 03:47 Metamyelocytes # 0.0 K/mm3 12/25/19 03:47 Myelocytes # 0.0 K/mm3 12/25/19 03:47 Promyelocytes # 0.0 K/mm3 12/25/19 03:47 Blast Cells # 0.0 K/mm3 12/25/19 03:47 Pathologist Review 12/13/19 07:48 WBC Morphology Not Reportable 12/25/19 03:47 Hypersegmented Neuts Not Reportable 12/25/19 03:47 Hyposegmented Neuts Not Reportable 12/25/19 03:47 Hypogranular Neuts Not Reportable 12/25/19 03:47 Smudge Cells Not Reportable 12/25/19 03:47 Toxic Granulation Not Reportable 12/25/19 03:47 Toxic Vacuolation Not Reportable 12/25/19 03:47 Dohle Bodies Not Reportable 12/25/19 03:47 Pelger-Huet Anomaly Not Reportable 12/25/19 03:47 Dominique Rods Not Reportable 12/25/19 03:47 Platelet Estimate Consistent w auto 12/25/19 03:47 Clumped Platelets Not Reportable 12/25/19 03:47 Plt Clumps, EDTA Not Reportable 12/25/19 03:47 Large Platelets Not Reportable 12/25/19 03:47 Giant Platelets Not Reportable 12/25/19 03:47 Platelet Satelliting Not Reportable 12/25/19 03:47 Plt Morphology Comment Not Reportable 12/25/19 03:47 RBC Morphology Not Reportable 12/25/19 03:47 Dimorphic RBCs Not Reportable 12/25/19 03:47 Polychromasia Not Reportable 12/25/19 03:47 Hypochromasia Not Reportable 12/25/19 03:47 Poikilocytosis Not Reportable 12/25/19 03:47 Anisocytosis 1+ 12/25/19 03:47 Microcytosis Not Reportable 12/25/19 03:47 Macrocytosis Not Reportable 12/25/19 03:47 Spherocytes Not Reportable 12/25/19 03:47 Pappenheimer Bodies Not Reportable 12/25/19 03:47 Sickle Cells Not Reportable 12/25/19 03:47 Target Cells Not Reportable 12/25/19 03:47 Tear Drop Cells Not Reportable 12/25/19 03:47 Ovalocytes Not Reportable 12/25/19 03:47 Helmet Cells Not Reportable 12/25/19 03:47 [place] Bodies Not Reportable 12/25/19 03:47 [place] Rings Not Reportable 12/25/19 03:47 [place] Cells Not Reportable 12/25/19 03:47 Bite Cells Not Reportable 12/25/19 03:47 Crenated Cell Not Reportable 12/25/19 03:47 Elliptocytes Not Reportable 12/25/19 03:47 Acanthocytes (Spur) Not Reportable 12/25/19 03:47 Rouleaux Not Reportable 12/25/19 03:47 Hemoglobin C Crystals Not Reportable 12/25/19 03:47 Schistocytes Not Reportable 12/25/19 03:47 Malaria parasites Not Reportable 12/25/19 03:47 [place] Bodies Not Reportable 12/25/19 03:47 Hem Pathologist Commnt No 12/25/19 03:47 PT 17.0 Sec. (12.2-14.9) H 11/23/19 03:47 INR 1.36 (0.87-1.13) H 11/23/19 03:47 APTT 128.2 Sec. (24.2-36.6) H* 11/23/19 03:47 Heparin Anti-Xa Level 0.31 U.I./ml (0.3-0.7) 11/23/19 09:03 ABG pH 7.433 pH Units (7.350-7.450) 03/08/20 13:25 ABG pCO2 40.2 mm Hg 03/08/20 13:25 ABG pO2 71.1 mm Hg (80.0-90.0) L 03/08/20 13:25 ABG HCO3 26.2 mmol/L (20.0-26.0) H 03/08/20 13:25 ABG O2 Saturation 97.0 % (95.0-99.0) 03/08/20 13:25 ABG O2 Content 11.0 (0.0-44) 03/08/20 13:25 ABG Base Excess 1.8 mmol/L (-2.0-3.0) 03/08/20 13:25 ABG Hemoglobin 8.2 gm/dl (12.0-16.0) L 03/08/20 13:25 ABG Carboxyhemoglobin 1.7 % (0.0-5.0) 03/08/20 13:25 ABG Methemoglobin 0.5 % (0.0-1.5) 03/08/20 13:25 Oxyhemoglobin 94.8 % (95.0-99.0) L 03/08/20 13:25 FiO2 21 % 03/08/20 13:25 Sodium 137 mmol/L (137-145) 03/13/20 03:50 Potassium 3.8 mmol/L (3.6-5.0) D 03/13/20 03:50 Chloride 103.1 mmol/L (98-107) 03/13/20 03:50 Carbon Dioxide 20 mmol/L (22-30) L 03/13/20 03:50 Anion Gap 18 mmol/L 03/13/20 03:50 BUN 30 mg/dL (7-17) H 03/13/20 03:50 Creatinine 0.6 mg/dL (0.7-1.2) L 03/13/20 03:50 Estimated GFR > 60 ml/min 03/13/20 03:50 BUN/Creatinine Ratio 50 % 03/13/20 03:50 Glucose 153 mg/dL (65-100) H 03/13/20 03:50 POC Glucose 160 (70-105) H 03/19/20 06:09 Lactic Acid 1.80 mmol/L (0.7-2.0) 11/25/19 05:05 Calcium 10.0 mg/dL (8.4-10.2) 03/13/20 03:50 Ionized Calcium 4.5 mg/dL (4.8-5.6) L 11/23/19 06:32 Phosphorus 4.20 mg/dL (2.5-4.5) D 11/28/19 08:59 Magnesium 1.90 mg/dL (1.7-2.3) 02/28/20 03:40 Total Bilirubin 0.40 mg/dL (0.1-1.2) 12/13/19 07:48 AST 27 units/L (5-40) 12/13/19 07:48 ALT 26 units/L (7-56) 12/13/19 07:48 Alkaline Phosphatase 316 units/L (35-129) H 12/13/19 07:48 Ammonia 42.0 umol/L (25-60) 11/29/19 13:41 Total Creatine Kinase 139 units/L (30-135) H 11/22/19 23:27 CK-MB (CK-2) 8.3 ng/mL (0.0-4.0) H 11/22/19 23:27 CK-MB (CK-2) Rel Index 5.9 (0-4) H 11/22/19 23:27 Troponin T < 0.010 ng/mL (0.00-0.029) 11/22/19 23:27 Total Protein 6.8 g/dL (6.3-8.2) 12/13/19 07:48 Albumin 2.4 g/dL (3.9-5) L 12/13/19 07:48 Albumin/Globulin Ratio 0.5 % 12/13/19 07:48 Lipase 18 units/L (13-60) 11/23/19 00:34 Procalcitonin 1.09 ng/mL (<0.15) 11/23/19 04:53 TSH 1.010 mlU/mL (0.270-4.200) 02/12/20 07:36 Free T4 1.08 ng/dL (0.76-1.46) 02/12/20 07:36 Urine Color Yellow (Yellow) 12/16/19 Unknown Urine Turbidity Slightly-cloudy (Clear) 12/16/19 Unknown Urine pH 5.0 (5.0-7.0) 12/16/19 Unknown Ur Specific [place] 1.018 (1.003-1.030) 12/16/19 Unknown Urine Protein 30 mg/dl mg/dL (Negative) 12/16/19 Unknown Urine Glucose (UA) Neg mg/dL (Negative) 12/16/19 Unknown Urine Ketones Neg mg/dL (Negative) 12/16/19 Unknown Urine Blood Sm (Negative) 12/16/19 Unknown Urine Nitrite Neg (Negative) 12/16/19 Unknown Urine Bilirubin Neg (Negative) 12/16/19 Unknown Urine Urobilinogen < 2.0 mg/dL (<2.0) 12/16/19 Unknown Ur Leukocyte Esterase Neg (Negative) 12/16/19 Unknown Urine WBC (Auto) 6.0 /HPF (0.0-6.0) 12/16/19 Unknown Urine RBC (Auto) 9.0 /HPF (0.0-6.0) 12/16/19 Unknown U Epithel Cells (Auto) < 1.0 /HPF (0-13.0) 12/16/19 Unknown Urine Bacteria (Auto) 2+ /HPF (Negative) 11/22/19 23:17 Hyaline Casts 3 /LPF 12/16/19 Unknown Granular Casts 3 /LPF 12/16/19 Unknown Urine Mucus Few /HPF 12/16/19 Unknown Vancomycin Trough 33.8 ug/mL (5.0-20.0) H 12/21/19 08:56 Random Vancomycin 16.2 ug/mL (0-40.0) 12/24/19 04:31 Salicylates < 0.3 mg/dL (2.8-20.0) L 11/22/19 23:27 Urine Opiates Screen Presumptive negative 11/22/19 23:17 Urine Methadone Screen Presumptive negative 11/22/19 23:17 Acetaminophen < 5.0 ug/mL (10.0-30.0) L 11/22/19 23:27 Ur Barbiturates Screen Presumptive negative 11/22/19 23:17 Ur Phencyclidine Scrn Presumptive negative 03/05/20 23:17 Ur Amphetamines Screen Presumptive negative 11/22/19 23:17 U Benzodiazepines Scrn Presumptive negative 11/22/19 23:17 Urine Cocaine Screen Presumptive negative 11/22/19 23:17 U Marijuana (THC) Screen Presumptive negative 11/22/19 23:17 Drugs of Abuse Note Disclamer 11/22/19 23:17 Plasma/Serum Alcohol 0.08 % (0-0.07) H 11/22/19 23:27 Coronavirus (PCR) Negative (Negative) 02/05/20 07:50 Hepatitis A IgM Ab Non-reactive (NonReactive) 11/23/19 01:19 Hep Bs Antigen Non-reactive (Negative) 11/23/19 01:19 Hep B Core IgM Ab Non-reactive (NonReactive) 11/23/19 01:19 Hepatitis C Antibody Non-reactive (NonReactive) 11/23/19 01:19 Blood Type O POSITIVE 12/21/19 14:54 Antibody Screen Negative 12/21/19 14:54 Crossmatch See Detail 12/21/19 14:54 - Diagnostic Impressions Diagnostic Impressions: Echocardiogram 11/23/19 03:58 Transthoracic Echocardiogram Indication: Cardiac arrest BP: 131/89 HR: 115 Conclusions *The study quality is technically difficult. *Global left ventricular wall motion and contractility are within normal limits. *The estimated ejection fraction is 55-60%. *Abnormal left ventricular diastolic filling is observed, consistent with impaired relaxation. *There is no pericardial effusion. Findings Procedure Info: The study quality is technically difficult. The study was technically limited due to the patient's inability to lay in the left lateral decubitus position. Left Ventricle: The left ventricular chamber size is normal. There is no left ventricular hypertrophy. Global left ventricular wall motion and contractility are within normal limits. Global left ventricular systolic function is normal. The estimated ejection fraction is 55-60%. Abnormal left ventricular diastolic filling is observed, consistent with impaired relaxation. Left Atrium: The left atrial chamber size is normal. Aortic Valve: The aortic valve leaflets are mildly thickened. Mitral Valve: The mitral valve leaflets are mildly thickened. There is no evidence of mitral regurgitation. Tricuspid Valve: The tricuspid valve leaflets are normal. There is trace tricuspid regurgitation. The right ventricular systolic pressure is calculated at 33 mmHg. Pulmonic Valve: The pulmonic valve appears normal. Pericardium: The pericardium appears normal. There is no pericardial effusion. Aorta: The aorta appears normal. Venous: The inferior vena cava appears normal in size. Measurements Chambers 2D Name Value Normal Range IVSd (2D) 0.94 cm (0.6 - 1.1) LVPWd (2D) 0.81 cm (0.6 - 1.1) LVIDd (2D) 3.6 cm (3.7 - 5.6) LVIDs (2D) 2.27 cm (2 - 3.8) LV FS (2D) 36.93 % - EF Teichholz (2D) 67.76 % - Ao root diameter (2D) 3.03 cm (2 - 3.7) Volumes/Mass Name Value Normal Range LA ESV SP 4CH (A/L) 16.89 ml - LA ESV SP 4CH (MOD) 15.52 ml - Diastolic/Systolic Function Name Value Normal Range MV E-wave Vmax 0.55 m/sec - MV deceleration time 200.89 msec - MV A-wave Vmax 0.68 m/sec - MV E:A ratio 0.82 ratio - Aortic Valve Name Value Normal Range AV Vmax 1.1 m/sec - AV VTI 15.9 cm - AV peak gradient 4.86 mmHg - AV mean gradient 2.59 mmHg - LVOT diameter 2 cm - LVOT Vmax 1.03 m/sec - LVOT VTI 15.87 cm - LVOT peak gradient 4.24 mmHg - LVOT mean gradient 2.41 mmHg - SV LVOT 49.77 ml - JOSÉ MIGUEL (continuity Vmax) 2.93 cm2 - JOSÉ MIGUEL (continuity VTI) 3.13 cm2 - Tricuspid Valve Name Value Normal Range TR Vmax 2.74 m/sec - TR peak gradient 303 mmHg - RAP 3 mmHg - RVSP 33 mmHg - IVC diameter 1.77 cm (1.2 - 2.3) Pulmonic Valve/Qp:Qs Name Value Normal Range PV Vmax 0.77 m/sec - PV peak gradient 2.4 mmHg - PV acceleration time 114.18 msec - Echocardiogram Limited Views 12/17/19 14:53 Transthoracic Echocardiogram Indication: R/O Vegetations BP: 144/83 HR: 133 Conclusions *Global left ventricular systolic function is mildly decreased. *The estimated ejection fraction is 45-50%. *A trivial pericardial effusion is visualized. Findings Left Ventricle: The left ventricular chamber size is normal. Global left ventricular systolic function is mildly decreased. The estimated ejection fraction is 45-50%. Left Atrium: The left atrial chamber size is normal. Right Ventricle: The right ventricular cavity size is normal. Right Atrium: The right atrial cavity size is normal. Aortic Valve: The aortic valve is not well visualized. There is no evidence of aortic regurgitation. Mitral Valve: The mitral valve leaflets are mildly thickened. There is trace of mitral regurgitation. Tricuspid Valve: The tricuspid valve leaflets are mildly thickened. There is trace tricuspid regurgitation. The right ventricular systolic pressure is calculated at 29 mmHg. Pulmonic Valve: The pulmonic valve is not well visualized. There is no evidence of pulmonic regurgitation. Pericardium: A trivial pericardial effusion is visualized. Aorta: There is no dilatation of the ascending aorta. There is no dilatation of the aortic root. Venous: The inferior vena cava appears normal in size. There is a greater than 50% respiratory change in the inferior vena cava dimension. Measurements Chambers 2D Name Value Normal Range IVSd (2D) 0.83 cm (0.6 - 1.1) LVPWd (2D) 0.98 cm (0.6 - 1.1) LVIDd (2D) 3.71 cm (3.7 - 5.6) LVIDs (2D) 2.93 cm (2 - 3.8) LV FS (2D) 21.12 % - EF Teichholz (2D) 43.71 % - Ao root diameter (2D) 3.02 cm (2 - 3.7) Volumes/Mass Name Value Normal Range LA ESV SP 4CH (A/L) 36.8 ml - LA ESV SP 2CH (A/L) 45.89 ml - LA ESV BP (A/L) 42.35 ml - LA ESV BP (A/L) index 26.63 ml/m2 - LA ESV SP 4CH (MOD) 34.42 ml - LA ESV SP 2CH (MOD) 44.21 ml - LA ESV BP (MOD) 39.82 ml - LA ESV BP (MOD) index 25.05 ml/m2 - Aortic Valve Name Value Normal Range LVOT diameter 1.63 cm - Tricuspid Valve Name Value Normal Range TR Vmax 2.56 m/sec - TR peak gradient 26 mmHg - RAP 3 mmHg - RVSP 29 mmHg - IVC diameter 1.83 cm (1.2 - 2.3) [place]/IV: Voiding Method Incontinent IV Catheter Type [Forearm] Peripheral IV IV Catheter Type [Left Forearm INT / Saline Lock ] IV Catheter Type [Right INT / Saline Lock Antecubital] IV Catheter Type [Right Hand] INT / Saline Lock IV Catheter Type [Right Wrist] Peripheral IV IV Catheter Type [Left Wrist] Peripheral IV IV Catheter Type [Left Peripheral IV Antecubital] IV Catheter Type [Right INT / Saline Lock Forearm] IV Catheter Type [Left Hand] INT / Saline Lock Active Medications - Current Medications Current Medications: Generic Name Dose Route Start Last Admin Trade Name Freq PRN Reason Stop Dose Admin Acetaminophen 650 mg 12/06/19 10:25 03/17/20 22:19 Tylenol FEEDTUBE 650 mg Q6H PRN Administration TEMP >/=100.3 Acetylcysteine 200 mg 02/16/20 20:00 03/19/20 07:57 Mucomyst Inhalation INHALATION 200 mg Q12HRT LUCHO Administration Albuterol/Ipratropium 1 ampul 03/18/20 20:00 03/19/20 07:57 Duoneb *Not For Prn Use* IH 1 ampul Q6HRT LUCHO Administration Alprazolam 1 mg 02/21/20 18:24 03/19/20 07:21 Xanax PO 1 mg Q8H PRN Administration Anxiety Lipase/Protease/Amylase 1 each 11/23/19 11:[address] 10,500 Unit FEEDTUBE PRN PRN Use w/ sod bicarb for FT Bisacodyl 10 mg 02/06/20 13:57 Dulcolax [place] QDAY PRN Constipation unrelieved by MOM Docusate Sodium 100 mg 02/18/20 22:00 03/18/20 21:31 Colace FEEDTUBE 100 mg BID LUCHO Administration Enoxaparin Sodium 40 mg 03/07/20 22:00 03/18/20 21:31 Enoxaparin SUB-Q 40 mg QDAY@2200 LUCHO Administration Glycopyrrolate 2 mg 12/31/19 20:00 03/18/20 21:31 Robinul PO 2 mg TID LCUHO Administration Haloperidol Lactate 5 mg 03/05/20 09:22 03/16/20 08:35 Haldol IM 5 mg Q6H PRN Administration Agitation Hydralazine HCl 10 mg 11/24/19 00:45 03/03/20 05:57 Apresoline IV 10 mg Q6H PRN Administration SBP > 160 Hydroxyzine Pamoate 25 mg 12/06/19 10:00 03/18/20 21:30 Vistaril PO 25 mg BID LUCHO Administration Lansoprazole 30 mg 11/27/19 10:00 03/18/20 09:12 Prevacid Solutab FEEDTUBE 30 mg QDAY LUCHO Administration Levetiracetam 500 mg 11/29/19 10:00 03/18/20 21:31 Keppra PO 500 mg BID LUCHO Administration Metoprolol Tartrate 12.5 mg 02/23/20 22:00 03/18/20 21:30 Metoprolol PO 12.5 mg BID LUCHO Administration Mirtazapine 30 mg 12/06/19 10:00 03/18/20 09:12 Remeron PO 30 mg DAILY LUCHO Administration Nicotine 21 mg 02/16/20 13:00 03/18/20 09:11 Habitrol TD 21 mg QDAY LUCHO Administration Ondansetron HCl 4 mg 12/10/19 07:53 02/25/20 02:51 Zofran IV 4 mg Q4H PRN Administration Nausea And Vomiting Polyethylene Glycol 17 gm 02/06/20 13:57 Miralax 3350 PO QDAY PRN Constipation Quetiapine Fumarate 100 mg 03/06/20 10:00 03/18/20 21:31 Seroquel FEEDTUBE 100 mg BID LUCHO Administration Scopolamine 1 each 02/08/20 15:00 03/18/20 09:12 Transderm-Scop TD 1 each Q3D LUCHO Administration Sertraline HCl 25 mg 01/01/20 10:00 03/18/20 09:12 Zoloft PO 25 mg QDAY LCUHO Administration Simple Syrup 15 ml 11/23/19 11:50 Simple Syrup FEEDTUBE PRN PRN Hypoglycemia BG<70 Simple Syrup 30 ml 11/23/19 11:50 Simple Syrup FEEDTUBE PRN PRN Hypoglycemia Sodium Bicarbonate 325 mg 11/23/19 11:50 Sodium Bicarbonate FEEDTUBE PRN PRN For Clogged Feeding Tube Nutrition/Malnutrition Assess - Dietary Evaluation Nutrition/Malnutrition Findings: Nutrition Notes Start: 11/23/19 11 :29 Freq: Status: Active Protocol: Document 03/13/20 14:31 LM (Rec: 03/13/20 14:32 LM [email or web address]) Nutrition Notes Initial or Follow up Reassessment Current Diagnosis Hypertension Other Pertinent Diagnosis Cardaic arrest, ETOH dependence, UTI Current Diet Jevity 1.2 at 60ml/hr Labs/Tests Reviewed Pertinent Medications Reviewed Height 5 ft 6 in Weight 46.7 kg [place] Body Weight (kg) 59.09 BMI 16.6 Subjective/Other Information Pt tolerating TF at goal. Percent of energy/protein needs met: 97%/100% Burn Absent Trauma Absent GI Symptoms None Current % PO Negligible Interpretation of Weight Loss (severe) >2% in 1 week Muscle Mass Mild Depletion (non-severe) #2 Nutrition Diagnosis Malnutrition Diagnosis Progress(for reassessment Continues documentation) #1 Diagnosis Progress(for reassessment Continues documentation) Is patient on ventilator? No Is Patient Ambulatory and/or Out of Bed No REE-([place]-confined to bed) 1305.120 Kcal/Kg value to use for calculation 38 Approximate Energy Requirements Using 1775 kcal/Kg Calculation Used for Recommendations Kcal/kg Additional Notes Protein: 60-75g (1.2-1.5g/kg) Fluid: 1 ml/kcal Nutrition Intervention Change Diet Order: Continue TF Nutrition Support: Jevity 1.2 at 60ml/hr Flush 100ml q4h Kcal 1,728 Protein (gm) 80 Fluid (mL) 1,162 Goal #1 TF tolerance Goal #2 Meet at least 80% of energy and protein needs via TF Goal #3 Wt gain/maintenacne Anticipated Discharge Needs: TF Follow-Up By: 03/20/20 Additional Comments F/U for TF tolerance
[2020-03-19] MEDS: levETIRAcetam 500 MG/5 ML ORAL LIQD PO SCH ×2 (09:47→22:30)
[2020-03-19] MEDS: QUEtiapine 100 MG TAB FEEDTUBE SCH ×2 (09:47→22:31)
[2020-03-19] MEDS: LANSOPRAZOLE 30 MG SOLUTAB FEEDTUBE SCH (09:47)
[2020-03-19] MEDS: DOCUSATE SODIUM 100 MG/10 ML ORAL LIQD FEEDTUBE SCH ×2 (09:47→22:30)
[2020-03-19] MEDS: SERTRALINE 50 MG TAB PO SCH (09:47)
[2020-03-19] MEDS: NICOTINE 21 MG/24 HR PATCH TD SCH (09:48)
[2020-03-19] MEDS: METOPROLOL TARTRATE 25 MG TAB PO SCH ×2 (09:48→22:31)
[2020-03-19] MEDS: MIRTAZAPINE 30 MG TAB PO SCH (09:48)
[2020-03-19] MEDS: hydrOXYzine PAMOATE 25 MG CAP PO SCH ×2 (13:31→22:31)
[2020-03-19] MEDS: ENOXAPARIN 40 MG/0.4 ML INJ SUB-Q SCH (22:30)
[2020-03-20] MEDS: IPRATROPIUM/ALBUTEROL SULFATE 3 ML AMPUL.NEB IH SCH ×4 (02:41→20:34)
[2020-03-20] MEDS: ALPRAZolam 1 MG TAB PO PRN ×2 (07:40→16:12)
[2020-03-20] MEDS: ACETYLCYSTEINE 20% 200 MG/1 ML *FOR INHALATION USE INHALATION SCH ×2 (08:16→20:34)
[2020-03-20] MEDS: GLYCOPYRROLATE 1 MG TAB PO SCH ×3 (08:30→21:13)
--- NOTE | 2020-03-20 10:07 | Progress Note ---
Assessment and Plan Assessment and plan: 54-year-old female with a past medical history of Hypertension, Depression, Tobacco use Disorder, Alcohol use Disorder as confirmed by Daughter and pt's mother presents to the hospital status post cardiac arrest at home. EMS found pt in [facility]. They were unable to intubate patient with a ET tube because she was clenching down therefore Joe airway placed. Per the ED physician who evaluated pt, Patient presented with a pulse, intermittent respirations, and bagging support via Joe airway with O2 sat of 100%. Accu-Chek of 71 obtained by EMS. She was intubated in the ER and called for admission. Following admission patient was diagnosed with anoxic brain injury, sepsis with MRSA bacteremia and MSSA pneumonia, alcoholic liver disease. Family member initially wished for full code then changed to DNR, patient treated with IV antibiotics for sepsis, status post trach and PEG on 12/13/19. Weaned off from the vent and put on T- piece. Patient is uninsured, waiting for placement, guarded prognosis. 03/07: Returning to service no acute changes are noted. Continue current management while awaiting placement. Intermittent labs. Base of neck also around tracheostomy tube preventing downgrading. Continue appropriate wound care. 03/08: Plan of care unchanged continues on aerosol trach collar 28% of oxygen. Continue wound care management placement still pending status decision. 03/09: Continue current treatment plan. Continue aspiration precaution 03/10: Continue current management, Restraints as patient still pulling, awaiting placement 03/11: Continue supportive care, intermittent suctioning and pulmonary toilet. awaiting placement. 03/12: Continue supportive care, Give a bolus of fluids due to Hypercalcemia, Monitor Hyperkalemia with labs in am, No arrhythmia. Patient vomiting, concern for aspiration, Chest xray ordered and no active disease noted. Keep HOB >45% 03/13: No evidence of aspiration on xray. Continue supportive care. 03/14: Continue supportive care. Capping trials to start. Discussed with patients nursing and case management to continue daily PT by the Rehab team. 03/15: Discussed again with staff to start capping trial. 03/16: Do not see any indication the capping trial has started will discuss with respiratory therapist. Continue restraints. Still awaiting family decision patient has had some remarkable improvement considering the fact that she was able to stay around night without restraints. We will continue daily trial of this method. Discussed plan with nursing staff 03/17: Continue current care. Currently continue restraints. Continue current management. Continue physical therapy daily. 03/18: Capping trial successful and will possibly get decannulated today. Continue placement. 03/19: Now decannulated and doing well. Begin discharge planning. / Anoxic brain injury: suspected CT head: No acute abnormality. EEG ordered showed Generalized slowing. No seizures or epileptiform activity. -Patient now opening her eyes, can speak and able to follow command -As needed haldol for agitation /Acute Respiratory failure -due to MSSA PNA -s/p intubation, s/p trach and PEG on 12/12 with mechanical ventilation, now on T-piece - CTA was done and negative for PE, - Echo quality is poor, showed diastolic dysfunction - continue weaning as tolerated -Continue appropriate and adequate tracheostomy care /Tracheostomy site ulceration -Continue appropriate wound management try to keep area dry. /Anemia, microcytic - Status post 3 units PRBC transfusion, H&H low stable /Acute metabolic encephalopathy/toxic encephalopathy due to the above - cont supportive care /Hyperammonemia - likely from liver disease related to EtOH abuse - Patient had elevated ammonia level and treated with lactulose /Metabolic Acidosis -Alcohol ketoacidosis vs hypoprofusion -Continue to monitor /ELevated LFTs, stable now - due to ischemic hepatitis. /Leucocytosis with sepsis - Source MRSA bacteremia and MSSA pneumonia. UA showed pyuria. RUQ US showed no ascites. - Repeat TTE negative for vegetation. Completed 7 days of Ceftriaxone on 11/29/2019. -Treated with Abx vancomycin 1 gm IV q 12 hour total 2 week till 12/30/2019 /Severe protein calorie malnutrition Dietitian consult to assist in management. /MSSA pneumonia: Status post vancomycin till 12/30/2019 /Alcohol use Disorder - given ongoing Alcohol use almost daily, s/p IV Thiamine - monitor /Severe hypokalemia -Repleted /Seizure disorder: treat with Keppra /H. Influenzae, tracheobronchitis, treated with abx /Moderate to severe fecal impaction - will add stool softner DNR CODE STATUS Disposition: prognosis guarded. Family okay for DNR, PT recommended subacute rehab, discharge pending on placement. 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 - Respiratory Respiratory effort: other dressing over the stoma Respiratory: bilateral: rales - Cardiovascular Rhythm: regular Heart Sounds: Present: S1 & S2. Absent: gallop, rub Extremities: pulses intact, No edema, normal color - Gastrointestinal General gastrointestinal: Present: soft, non-tender, non-distended, normal bowel sounds - Integumentary Integumentary: clear, warm, dry - Musculoskeletal Musculoskeletal: No joint swelling or tenderness - Neurologic Neurologic: other (2+ reflexes throughout). respond to commend and nods head. generalized weakness, verbal - Psychiatric Psychiatric: co-operative - Constitutional Vitals: Temp Pulse Resp BP Pulse Ox 97.5 F L 88 22 132/77 92 03/20/20 05:29 03/20/20 02:41 03/20/20 05:29 03/20/20 05:29 03/20/20 05:34 General appearance: Present: mild distress, cachectic, disheveled, other (Noncommunicative) HEART Score - HEART Score Troponin: Troponin T < 0.010 ng/mL (0.00-0.029) 11/22/19 23:27 Results - Labs CBC & Chem 7: 03/12/20 04:53 03/13/20 03:50 Labs: Laboratory Last Values WBC 9.1 K/mm3 (4.5-11.0) 03/12/20 04:53 RBC 3.90 M/mm3 (3.65-5.03) 03/12/20 04:53 Hgb 11.5 gm/dl (10.1-14.3) 03/12/20 04:53 Hct 34.2 % (30.3-42.9) 03/12/20 04:53 MCV 88 fl (79-97) 03/12/20 04:53 MCH 29 pg (28-32) 03/12/20 04:53 MCHC 34 % (30-34) 03/12/20 04:53 RDW 14.4 % (13.2-15.2) 03/12/20 04:53 Plt Count 625 K/mm3 (140-440) H 03/12/20 04:53 Lymph % (Auto) 27.8 % (13.4-35.0) 03/06/20 03:37 Granite % (Auto) 9.1 % (0.0-7.3) H 03/06/20 03:37 Eos % (Auto) 2.8 % (0.0-4.3) 03/06/20 03:37 Baso % (Auto) 0.7 % (0.0-1.8) 03/06/20 03:37 Lymph # 2.2 K/mm3 (1.2-5.4) 03/06/20 03:37 Granite # 0.7 K/mm3 (0.0-0.8) 03/06/20 03:37 Eos # 0.2 K/mm3 (0.0-0.4) 03/06/20 03:37 Baso # 0.1 K/mm3 (0.0-0.1) 03/06/20 03:37 Add Manual Diff Complete 12/25/19 03:47 Total Counted 200 12/25/19 03:47 Seg Neutrophils % 59.6 % (40.0-70.0) 03/06/20 03:37 Seg Neuts % (Manual) 97.5 % (40.0-70.0) H 12/25/19 03:47 Band Neutrophils % 0 % 12/25/19 03:47 Lymphocytes % (Manual) 1.0 % (13.4-35.0) L 12/25/19 03:47 Reactive Lymphs % (Man) 0 % 12/25/19 03:47 Monocytes % (Manual) 1.5 % (0.0-7.3) 12/25/19 03:47 Eosinophils % (Manual) 0 % (0.0-4.3) 12/25/19 03:47 Basophils % (Manual) 0 % (0.0-1.8) 12/25/19 03:47 Metamyelocytes % 0 % 12/25/19 03:47 Myelocytes % 0 % 12/25/19 03:47 Promyelocytes % 0 % 12/25/19 03:47 Blast Cells % 0 % 12/25/19 03:47 Nucleated RBC % Not Reportable 12/25/19 03:47 Seg Neutrophils # 4.8 K/mm3 (1.8-7.7) 03/06/20 03:37 Seg Neutrophils # Man 35.3 K/mm3 (1.8-7.7) H 12/25/19 03:47 Band Neutrophils # 0.0 K/mm3 12/25/19 03:47 Lymphocytes # (Manual) 0.4 K/mm3 (1.2-5.4) L 12/25/19 03:47 Abs React Lymphs (Man) 0.0 K/mm3 12/25/19 03:47 Monocytes # (Manual) 0.5 K/mm3 (0.0-0.8) 12/25/19 03:47 Eosinophils # (Manual) 0.0 K/mm3 (0.0-0.4) 12/25/19 03:47 Basophils # (Manual) 0.0 K/mm3 (0.0-0.1) 12/25/19 03:47 Metamyelocytes # 0.0 K/mm3 12/25/19 03:47 Myelocytes # 0.0 K/mm3 12/25/19 03:47 Promyelocytes # 0.0 K/mm3 12/25/19 03:47 Blast Cells # 0.0 K/mm3 12/25/19 03:47 Pathologist Review 12/13/19 07:48 WBC Morphology Not Reportable 12/25/19 03:47 Hypersegmented Neuts Not Reportable 12/25/19 03:47 Hyposegmented Neuts Not Reportable 12/25/19 03:47 Hypogranular Neuts Not Reportable 12/25/19 03:47 Smudge Cells Not Reportable 12/25/19 03:47 Toxic Granulation Not Reportable 12/25/19 03:47 Toxic Vacuolation Not Reportable 12/25/19 03:47 Dohle Bodies Not Reportable 12/25/19 03:47 Pelger-Huet Anomaly Not Reportable 12/25/19 03:47 Dominique Rods Not Reportable 12/25/19 03:47 Platelet Estimate Consistent w auto 12/25/19 03:47 Clumped Platelets Not Reportable 12/25/19 03:47 Plt Clumps, EDTA Not Reportable 12/25/19 03:47 Large Platelets Not Reportable 12/25/19 03:47 Giant Platelets Not Reportable 12/25/19 03:47 Platelet Satelliting Not Reportable 12/25/19 03:47 Plt Morphology Comment Not Reportable 12/25/19 03:47 RBC Morphology Not Reportable 12/25/19 03:47 Dimorphic RBCs Not Reportable 12/25/19 03:47 Polychromasia Not Reportable 12/25/19 03:47 Hypochromasia Not Reportable 12/25/19 03:47 Poikilocytosis Not Reportable 12/25/19 03:47 Anisocytosis 1+ 12/25/19 03:47 Microcytosis Not Reportable 12/25/19 03:47 Macrocytosis Not Reportable 12/25/19 03:47 Spherocytes Not Reportable 12/25/19 03:47 Pappenheimer Bodies Not Reportable 12/25/19 03:47 Sickle Cells Not Reportable 12/25/19 03:47 Target Cells Not Reportable 12/25/19 03:47 Tear Drop Cells Not Reportable 12/25/19 03:47 Ovalocytes Not Reportable 12/25/19 03:47 Helmet Cells Not Reportable 12/25/19 03:47 Frias-Lometa Bodies Not Reportable 12/25/19 03:47 Kingsley Rings Not Reportable 12/25/19 03:47 Jamshid Cells Not Reportable 12/25/19 03:47 Bite Cells Not Reportable 12/25/19 03:47 Crenated Cell Not Reportable 12/25/19 03:47 Elliptocytes Not Reportable 12/25/19 03:47 Acanthocytes (Spur) Not Reportable 12/25/19 03:47 Rouleaux Not Reportable 12/25/19 03:47 Hemoglobin C Crystals Not Reportable 12/25/19 03:47 Schistocytes Not Reportable 12/25/19 03:47 Malaria parasites Not Reportable 12/25/19 03:47 Gregg Bodies Not Reportable 12/25/19 03:47 Hem Pathologist Commnt No 12/25/19 03:47 PT 17.0 Sec. (12.2-14.9) H 11/23/19 03:47 INR 1.36 (0.87-1.13) H 11/23/19 03:47 APTT 128.2 Sec. (24.2-36.6) H* 11/23/19 03:47 Heparin Anti-Xa Level 0.31 U.I./ml (0.3-0.7) 11/23/19 09:03 ABG pH 7.433 pH Units (7.350-7.450) 03/08/20 13:25 ABG pCO2 40.2 mm Hg 03/08/20 13:25 ABG pO2 71.1 mm Hg (80.0-90.0) L 03/08/20 13:25 ABG HCO3 26.2 mmol/L (20.0-26.0) H 03/08/20 13:25 ABG O2 Saturation 97.0 % (95.0-99.0) 03/08/20 13:25 ABG O2 Content 11.0 (0.0-44) 03/08/20 13:25 ABG Base Excess 1.8 mmol/L (-2.0-3.0) 03/08/20 13:25 ABG Hemoglobin 8.2 gm/dl (12.0-16.0) L 03/08/20 13:25 ABG Carboxyhemoglobin 1.7 % (0.0-5.0) 03/08/20 13:25 ABG Methemoglobin 0.5 % (0.0-1.5) 03/08/20 13:25 Oxyhemoglobin 94.8 % (95.0-99.0) L 03/08/20 13:25 FiO2 21 % 03/08/20 13:25 Sodium 137 mmol/L (137-145) 03/13/20 03:50 Potassium 3.8 mmol/L (3.6-5.0) D 03/13/20 03:50 Chloride 103.1 mmol/L (98-107) 03/13/20 03:50 Carbon Dioxide 20 mmol/L (22-30) L 03/13/20 03:50 Anion Gap 18 mmol/L 03/13/20 03:50 BUN 30 mg/dL (7-17) H 03/13/20 03:50 Creatinine 0.6 mg/dL (0.7-1.2) L 03/13/20 03:50 Estimated GFR > 60 ml/min 03/13/20 03:50 BUN/Creatinine Ratio 50 % 03/13/20 03:50 Glucose 153 mg/dL (65-100) H 03/13/20 03:50 POC Glucose 122 (70-105) H 03/20/20 06:14 Lactic Acid 1.80 mmol/L (0.7-2.0) 11/25/19 05:05 Calcium 10.0 mg/dL (8.4-10.2) 03/13/20 03:50 Ionized Calcium 4.5 mg/dL (4.8-5.6) L 11/23/19 06:32 Phosphorus 4.20 mg/dL (2.5-4.5) D 11/28/19 08:59 Magnesium 1.90 mg/dL (1.7-2.3) 02/28/20 03:40 Total Bilirubin 0.40 mg/dL (0.1-1.2) 12/13/19 07:48 AST 27 units/L (5-40) 12/13/19 07:48 ALT 26 units/L (7-56) 12/13/19 07:48 Alkaline Phosphatase 316 units/L (35-129) H 12/13/19 07:48 Ammonia 42.0 umol/L (25-60) 11/29/19 13:41 Total Creatine Kinase 139 units/L (30-135) H 11/22/19 23:27 CK-MB (CK-2) 8.3 ng/mL (0.0-4.0) H 11/22/19 23:27 CK-MB (CK-2) Rel Index 5.9 (0-4) H 11/22/19 23:27 Troponin T < 0.010 ng/mL (0.00-0.029) 11/22/19 23:27 Total Protein 6.8 g/dL (6.3-8.2) 12/13/19 07:48 Albumin 2.4 g/dL (3.9-5) L 12/13/19 07:48 Albumin/Globulin Ratio 0.5 % 12/13/19 07:48 Lipase 18 units/L (13-60) 11/23/19 00:34 Procalcitonin 1.09 ng/mL (<0.15) 11/23/19 04:53 TSH 1.010 mlU/mL (0.270-4.200) 02/12/20 07:36 Free T4 1.08 ng/dL (0.76-1.46) 02/12/20 07:36 Urine Color Yellow (Yellow) 12/16/19 Unknown Urine Turbidity Slightly-cloudy (Clear) 12/16/19 Unknown Urine pH 5.0 (5.0-7.0) 12/16/19 Unknown Ur Specific [place] 1.018 (1.003-1.030) 12/16/19 Unknown Urine Protein 30 mg/dl mg/dL (Negative) 12/16/19 Unknown Urine Glucose (UA) Neg mg/dL (Negative) 12/16/19 Unknown Urine Ketones Neg mg/dL (Negative) 12/16/19 Unknown Urine Blood Sm (Negative) 12/16/19 Unknown Urine Nitrite Neg (Negative) 12/16/19 Unknown Urine Bilirubin Neg (Negative) 12/16/19 Unknown Urine Urobilinogen < 2.0 mg/dL (<2.0) 12/16/19 Unknown Ur Leukocyte Esterase Neg (Negative) 12/16/19 Unknown Urine WBC (Auto) 6.0 /HPF (0.0-6.0) 12/16/19 Unknown Urine RBC (Auto) 9.0 /HPF (0.0-6.0) 12/16/19 Unknown U Epithel Cells (Auto) < 1.0 /HPF (0-13.0) 12/16/19 Unknown Urine Bacteria (Auto) 2+ /HPF (Negative) 11/22/19 23:17 Hyaline Casts 3 /LPF 12/16/19 Unknown Granular Casts 3 /LPF 12/16/19 Unknown Urine Mucus Few /HPF 12/16/19 Unknown Vancomycin Trough 33.8 ug/mL (5.0-20.0) H 12/21/19 08:56 Random Vancomycin 16.2 ug/mL (0-40.0) 12/24/19 04:31 Salicylates < 0.3 mg/dL (2.8-20.0) L 11/22/19 23:27 Urine Opiates Screen Presumptive negative 11/22/19 23:17 Urine Methadone Screen Presumptive negative 11/22/19 23:17 Acetaminophen < 5.0 ug/mL (10.0-30.0) L 11/22/19 23:27 Ur Barbiturates Screen Presumptive negative 11/22/19 23:17 Ur Phencyclidine Scrn Presumptive negative 11/22/19 23:17 Ur Amphetamines Screen Presumptive negative 11/22/19 23:17 U Benzodiazepines Scrn Presumptive negative 11/22/19 23:17 Urine Cocaine Screen Presumptive negative 11/22/19 23:17 U Marijuana (THC) Screen Presumptive negative 11/22/19 23:17 Drugs of Abuse Note Disclamer 11/22/19 23:17 Plasma/Serum Alcohol 0.08 % (0-0.07) H 11/22/19 23:27 Coronavirus (PCR) Negative (Negative) 02/05/20 07:50 Hepatitis A IgM Ab Non-reactive (NonReactive) 11/23/19 01:19 Hep Bs Antigen Non-reactive (Negative) 11/23/19 01:19 Hep B Core IgM Ab Non-reactive (NonReactive) 11/23/19 01:19 Hepatitis C Antibody Non-reactive (NonReactive) 11/23/19 01:19 Blood Type O POSITIVE 12/21/19 14:54 Antibody Screen Negative 12/21/19 14:54 Crossmatch See Detail 12/21/19 14:54 - Diagnostic Impressions Diagnostic Impressions: Echocardiogram 11/23/19 03:58 Transthoracic Echocardiogram Indication: Cardiac arrest BP: 131/89 HR: 115 Conclusions *The study quality is technically difficult. *Global left ventricular wall motion and contractility are within normal limits. *The estimated ejection fraction is 55-60%. *Abnormal left ventricular diastolic filling is observed, consistent with impaired relaxation. *There is no pericardial effusion. Findings Procedure Info: The study quality is technically difficult. The study was technically limited due to the patient's inability to lay in the left lateral decubitus position. Left Ventricle: The left ventricular chamber size is normal. There is no left ventricular hypertrophy. Global left ventricular wall motion and contractility are within normal limits. Global left ventricular systolic function is normal. The estimated ejection fraction is 55-60%. Abnormal left ventricular diastolic filling is observed, consistent with impaired relaxation. Left Atrium: The left atrial chamber size is normal. Aortic Valve: The aortic valve leaflets are mildly thickened. Mitral Valve: The mitral valve leaflets are mildly thickened. There is no evidence of mitral regurgitation. Tricuspid Valve: The tricuspid valve leaflets are normal. There is trace tricuspid regurgitation. The right ventricular systolic pressure is calculated at 33 mmHg. Pulmonic Valve: The pulmonic valve appears normal. Pericardium: The pericardium appears normal. There is no pericardial effusion. Aorta: The aorta appears normal. Venous: The inferior vena cava appears normal in size. Measurements Chambers 2D Name Value Normal Range IVSd (2D) 0.94 cm (0.6 - 1.1) LVPWd (2D) 0.81 cm (0.6 - 1.1) LVIDd (2D) 3.6 cm (3.7 - 5.6) LVIDs (2D) 2.27 cm (2 - 3.8) LV FS (2D) 36.93 % - EF Teichholz (2D) 67.76 % - Ao root diameter (2D) 3.03 cm (2 - 3.7) Volumes/Mass Name Value Normal Range LA ESV SP 4CH (A/L) 16.89 ml - LA ESV SP 4CH (MOD) 15.52 ml - Diastolic/Systolic Function Name Value Normal Range MV E-wave Vmax 0.55 m/sec - MV deceleration time 200.89 msec - MV A-wave Vmax 0.68 m/sec - MV E:A ratio 0.82 ratio - Aortic Valve Name Value Normal Range AV Vmax 1.1 m/sec - AV VTI 15.9 cm - AV peak gradient 4.86 mmHg - AV mean gradient 2.59 mmHg - LVOT diameter 2 cm - LVOT Vmax 1.03 m/sec - LVOT VTI 15.87 cm - LVOT peak gradient 4.24 mmHg - LVOT mean gradient 2.41 mmHg - SV LVOT 49.77 ml - JOSÉ MIGUEL (continuity Vmax) 2.93 cm2 - JOSÉ MIGUEL (continuity VTI) 3.13 cm2 - Tricuspid Valve Name Value Normal Range TR Vmax 2.74 m/sec - TR peak gradient 303 mmHg - RAP 3 mmHg - RVSP 33 mmHg - IVC diameter 1.77 cm (1.2 - 2.3) Pulmonic Valve/Qp:Qs Name Value Normal Range PV Vmax 0.77 m/sec - PV peak gradient 2.4 mmHg - PV acceleration time 114.18 msec - Echocardiogram Limited Views 12/17/19 14:53 Transthoracic Echocardiogram Indication: R/O Vegetations BP: 144/83 HR: 133 Conclusions *Global left ventricular systolic function is mildly decreased. *The estimated ejection fraction is 45-50%. *A trivial pericardial effusion is visualized. Findings Left Ventricle: The left ventricular chamber size is normal. Global left ventricular systolic function is mildly decreased. The estimated ejection fraction is 45-50%. Left Atrium: The left atrial chamber size is normal. Right Ventricle: The right ventricular cavity size is normal. Right Atrium: The right atrial cavity size is normal. Aortic Valve: The aortic valve is not well visualized. There is no evidence of aortic regurgitation. Mitral Valve: The mitral valve leaflets are mildly thickened. There is trace of mitral regurgitation. Tricuspid Valve: The tricuspid valve leaflets are mildly thickened. There is trace tricuspid regurgitation. The right ventricular systolic pressure is calculated at 29 mmHg. Pulmonic Valve: The pulmonic valve is not well visualized. There is no evidence of pulmonic regurgitation. Pericardium: A trivial pericardial effusion is visualized. Aorta: There is no dilatation of the ascending aorta. There is no dilatation of the aortic root. Venous: The inferior vena cava appears normal in size. There is a greater than 50% respiratory change in the inferior vena cava dimension. Measurements Chambers 2D Name Value Normal Range IVSd (2D) 0.83 cm (0.6 - 1.1) LVPWd (2D) 0.98 cm (0.6 - 1.1) LVIDd (2D) 3.71 cm (3.7 - 5.6) LVIDs (2D) 2.93 cm (2 - 3.8) LV FS (2D) 21.12 % - EF Teichholz (2D) 43.71 % - Ao root diameter (2D) 3.02 cm (2 - 3.7) Volumes/Mass Name Value Normal Range LA ESV SP 4CH (A/L) 36.8 ml - LA ESV SP 2CH (A/L) 45.89 ml - LA ESV BP (A/L) 42.35 ml - LA ESV BP (A/L) index 26.63 ml/m2 - LA ESV SP 4CH (MOD) 34.42 ml - LA ESV SP 2CH (MOD) 44.21 ml - LA ESV BP (MOD) 39.82 ml - LA ESV BP (MOD) index 25.05 ml/m2 - Aortic Valve Name Value Normal Range LVOT diameter 1.63 cm - Tricuspid Valve Name Value Normal Range TR Vmax 2.56 m/sec - TR peak gradient 26 mmHg - RAP 3 mmHg - RVSP 29 mmHg - IVC diameter 1.83 cm (1.2 - 2.3) Del[place] Cruz/IV: Voiding Method Incontinent IV Catheter Type [Forearm] Peripheral IV IV Catheter Type [Left Forearm INT / Saline Lock ] IV Catheter Type [Right INT / Saline Lock Antecubital] IV Catheter Type [Right Hand] INT / Saline Lock IV Catheter Type [Right Wrist] Peripheral IV IV Catheter Type [Left Wrist] Peripheral IV IV Catheter Type [Left Peripheral IV Antecubital] IV Catheter Type [Right INT / Saline Lock Forearm] IV Catheter Type [Left Hand] INT / Saline Lock Active Medications - Current Medications Current Medications: Generic Name Dose Route Start Last Admin Trade Name Freq PRN Reason Stop Dose Admin Acetaminophen 650 mg 12/06/19 10:25 03/17/20 22:19 Tylenol FEEDTUBE 650 mg Q6H PRN Administration TEMP >/=100.3 Acetylcysteine 200 mg 02/16/20 20:00 03/20/20 08:16 Mucomyst Inhalation INHALATION 200 mg Q12HRT LUCHO Administration Albuterol/Ipratropium 1 ampul 03/18/20 20:00 03/20/20 08:28 Duoneb *Not For Prn Use* IH 1 ampul Q6HRT LUCHO Administration Alprazolam 1 mg 02/21/20 18:24 03/20/20 07:40 Xanax PO 1 mg Q8H PRN Administration Anxiety Lipase/Protease/Amylase 1 each 11/23/19 11:[address] 10,500 Unit FEEDTUBE PRN PRN Use w/ sod bicarb for FT Bisacodyl 10 mg 02/06/20 13:57 Dulcolax IA QDAY PRN Constipation unrelieved by MOM Docusate Sodium 100 mg 02/18/20 22:00 03/19/20 22:30 Colace FEEDTUBE 100 mg BID LUCHO Administration Enoxaparin Sodium 40 mg 03/07/20 22:00 03/19/20 22:30 Enoxaparin SUB-Q 40 mg QDAY@2200 LUCHO Administration Glycopyrrolate 2 mg 12/31/19 20:00 03/19/20 22:33 Robinul PO 2 mg TID LUCHO Administration Haloperidol Lactate 5 mg 03/05/20 09:22 03/16/20 08:35 Haldol IM 5 mg Q6H PRN Administration Agitation Hydralazine HCl 10 mg 11/24/19 00:45 03/03/20 05:57 Apresoline IV 10 mg Q6H PRN Administration SBP > 160 Hydroxyzine Pamoate 25 mg 12/06/19 10:00 03/19/20 22:31 Vistaril PO 25 mg BID LUCHO Administration Lansoprazole 30 mg 11/27/19 10:00 03/19/20 09:47 Prevacid Solutab FEEDTUBE 30 mg QDAY LUCHO Administration Levetiracetam 500 mg 11/29/19 10:00 03/19/20 22:30 Keppra PO 500 mg BID LUCHO Administration Metoprolol Tartrate 12.5 mg 02/23/20 22:00 03/19/20 22:31 Metoprolol PO 12.5 mg BID LUCHO Administration Mirtazapine 30 mg 12/06/19 10:00 03/19/20 09:48 Remeron PO 30 mg DAILY LUCHO Administration Nicotine 21 mg 02/16/20 13:00 03/19/20 09:48 Habitrol TD 21 mg QDAY LUCHO Administration Ondansetron HCl 4 mg 12/10/19 07:53 02/25/20 02:51 Zofran IV 4 mg Q4H PRN Administration Nausea And Vomiting Polyethylene Glycol 17 gm 02/06/20 13:57 Miralax 3350 PO QDAY PRN Constipation Quetiapine Fumarate 100 mg 03/06/20 10:00 03/19/20 22:31 Seroquel FEEDTUBE 100 mg BID LUCHO Administration Scopolamine 1 each 02/08/20 15:00 03/18/20 09:12 Transderm-Scop TD 1 each Q3D LUCHO Administration Sertraline HCl 25 mg 01/01/20 10:00 03/19/20 09:47 Zoloft PO 25 mg QDAY LUCHO Administration Simple Syrup 15 ml 11/23/19 11:50 Simple Syrup FEEDTUBE PRN PRN Hypoglycemia BG<70 Simple Syrup 30 ml 11/23/19 11:50 Simple Syrup FEEDTUBE PRN PRN Hypoglycemia Sodium Bicarbonate 325 mg 11/23/19 11:50 Sodium Bicarbonate FEEDTUBE PRN PRN For Clogged Feeding Tube Nutrition/Malnutrition Assess - Dietary Evaluation Nutrition/Malnutrition Findings: Nutrition Notes Start: 11/23/19 11:29 Freq: Status: Active Protocol: Document 03/13/20 14:31 LM (Rec: 03/13/20 14:32 LM [id number]) Nutrition Notes Initial or Follow up Reassessment Current Diagnosis Hypertension Other Pertinent Diagnosis Cardaic arrest, ETOH dependence, UTI Current Diet Jevity 1.2 at 60ml/hr Labs/Tests Reviewed Pertinent Medications Reviewed Height 5 ft 6 in Weight 46.7 kg [place] Body Weight (kg) 59.09 BMI 16.6 Subjective/Other Information Pt tolerating TF at goal. Percent of energy/protein needs met: 97%/100% Burn Absent Trauma Absent GI Symptoms None Current % PO Negligible Interpretation of Weight Loss (severe) >2% in 1 week Muscle Mass Mild Depletion (non-severe) #2 Nutrition Diagnosis Malnutrition Diagnosis Progress(for reassessment Continues documentation) #1 Diagnosis Progress(for reassessment Continues documentation) Is patient on ventilator? No Is Patient Ambulatory and/or Out of Bed No REE-([facility]-confined to bed) 1305.120 Kcal/Kg value to use for calculation 38 Approximate Energy Requirements Using 1775 kcal/Kg Calculation Used for Recommendations Kcal/kg Additional Notes Protein: 60-75g (1.2-1.5g/kg) Fluid: 1 ml/kcal Nutrition Intervention Change Diet Order: Continue TF Nutrition Support: Jevity 1.2 at 60ml/hr Flush 100ml q4h Kcal 1,728 Protein (gm) 80 Fluid (mL) 1,162 Goal #1 TF tolerance Goal #2 Meet at least 80% of energy and protein needs via TF Goal #3 Wt gain/maintenacne Anticipated Discharge Needs: TF Follow-Up By: 03/20/20 Additional Comments F/U for TF tolerance
[2020-03-20] MEDS: DOCUSATE SODIUM 100 MG/10 ML ORAL LIQD FEEDTUBE SCH (10:23)
[2020-03-20] MEDS: METOPROLOL TARTRATE 25 MG TAB PO SCH ×2 (10:23→21:12)
[2020-03-20] MEDS: NICOTINE 21 MG/24 HR PATCH TD SCH (10:23)
[2020-03-20] MEDS: QUEtiapine 100 MG TAB FEEDTUBE SCH ×2 (10:23→21:14)
[2020-03-20] MEDS: levETIRAcetam 500 MG/5 ML ORAL LIQD PO SCH ×2 (10:23→21:13)
[2020-03-20] MEDS: SERTRALINE 50 MG TAB PO SCH (10:24)
[2020-03-20] MEDS: LANSOPRAZOLE 30 MG SOLUTAB FEEDTUBE SCH (10:25)
[2020-03-20] MEDS: hydrOXYzine PAMOATE 25 MG CAP PO SCH ×2 (10:27→21:14)
[2020-03-20] MEDS: MIRTAZAPINE 30 MG TAB PO SCH (10:27)
--- NOTE | 2020-03-20 13:53 | Progress Note ---
Assessment and Plan Patient Decanulated. Patient placed on 2 litres O2 via nasal canula. O2 saturation 99%. Patient sleeping at this time. No acute respiratory distress. - Patient Problems (1) Acute respiratory failure Current Visit: Yes Status: Acute Qualifiers: Respiratory failure complication: hypoxia Qualified Code(s): J96.01 - Acute respiratory failure with hypoxia Plan to address problem: Patient decanulated and on 2 litres O2. O2 saturation 99%. Aspiration precautions. Continue albuterol/atrovent aerosol treatments q 6 hours. (2) Alcohol abuse Current Visit: Yes Status: Acute Plan to address problem: Management as per primary care. (3) Cardiac arrest with successful resuscitation Current Visit: Yes Status: Acute Plan to address problem: Patient successfully resucitated. Alert, awake. Decanulated. On O2 2 litres. O2 saturation 99%. (4) Increased ammonia level Current Visit: Yes Status: Acute Plan to address problem: Management as per primary care. (5) Seizure disorder Current Visit: Yes Status: Acute Plan to address problem: Management as per primary care and neurology. (6) HTN (hypertension) Current Visit: No Status: Acute Plan to address problem: Management as per primary care. Subjective Date of service: 03/20/20 Principal diagnosis: Ac cardiopulmonary arrest; Ac hypoxemic resp failure; Acute encephalopathy Interval history: Patient Decanulated. Patient placed on 2 litres O2 via nasal canula. O2 saturation 99%. Patient sleeping at this time. No acute respiratory distress. Objective Vital Signs - 12hr 03/20/20 03/20/20 03/20/20 02:41 05:29 05:34 Temperature 97.5 F L Pulse Rate Pulse Rate [ 88 Anterior Bilateral Throughout] Respiratory 22 Rate Respiratory 18 Rate [Anterior Bilateral Throughout] Blood Pressure 132/77 Blood Pressure [Left] O2 Sat by Pulse 92 Oximetry 03/20/20 03/20/20 03/20/20 08:15 08:30 10:00 Temperature Pulse Rate 92 H Pulse Rate [ 94 H Anterior Bilateral Throughout] Respiratory 18 Rate Respiratory 20 Rate [Anterior Bilateral Throughout] Blood Pressure Blood Pressure [Left] O2 Sat by Pulse 97 98 Oximetry 03/20/20 11:00 Temperature 99.2 F Pulse Rate 97 H Pulse Rate [ Anterior Bilateral Throughout] Respiratory 19 Rate Respiratory Rate [Anterior Bilateral Throughout] Blood Pressure Blood Pressure 123/82 [Left] O2 Sat by Pulse 99 Oximetry Constitutional: no acute distress, asleep, other (Agitating.) Eyes: non-icteric ENT: oropharynx moist, other (Patient decaulated.) Neck: supple, no lymphadenopathy, no JVD Effort: normal Ascultation: Bilateral: diminished breath sounds, rhonchi Percussion: Bilateral: not dull Cardiovascular: regular rate and rhythm (tachycardia), other (S1,S2) Gastrointestinal: normoactive bowel sounds, soft, non-tender, non-distended Integumentary: normal Extremities: no cyanosis, no edema, pulses normal, no ischemia or petechiae Neurologic: normal mental status, non-focal exam, pupils equal and round, CN II- XII normal, motor strength normal and Psychiatric: anxious CBC and BMP: 03/12/20 04:53 03/13/20 03:50 ABG, PT/INR, D-dimer: ABG ABG pH 7.433 pH Units (7.350-7.450) 03/08/20 13:25 ABG pCO2 40.2 mm Hg 03/08/20 13:25 ABG pO2 71.1 mm Hg (80.0-90.0) L 03/08/20 13:25 ABG O2 Saturation 97.0 % (95.0-99.0) 03/08/20 13:25 PT/INR, D-dimer PT 17.0 Sec. (12.2-14.9) H 11/23/19 03:47 INR 1.36 (0.87-1.13) H 11/23/19 03:47 Abnormal lab findings: Abnormal Labs 11/22/19 11/22/19 11/22/19 23:17 23:18 23:27 WBC 21.2 H RBC 3.59 L Hgb 9.8 L Hct MCH 27 L RDW 18.6 H Plt Count 454 H Lymph % (Auto) [place] % (Auto) [place] # Baso # Seg Neutrophils % Seg Neuts % (Manual) 86.0 H Lymphocytes % (Manual) 9.0 L Monocytes % (Manual) Seg Neutrophils # Seg Neutrophils # Man 18.2 H Lymphocytes # (Manual) Monocytes # (Manual) 1.1 H Eosinophils # (Manual) Basophils # (Manual) PT INR APTT ABG pH ABG pO2 ABG HCO3 ABG O2 Saturation ABG Base Excess ABG Hemoglobin Oxyhemoglobin Sodium Potassium Chloride Carbon Dioxide BUN Creatinine Glucose POC Glucose 53 L Lactic Acid Calcium Ionized Calcium Phosphorus Magnesium Total Bilirubin AST ALT Alkaline Phosphatase Ammonia Total Creatine Kinase CK-MB (CK-2) CK-MB (CK-2) Rel Index Total Protein Albumin Urine WBC (Auto) 40.0 H Vancomycin Trough Salicylates Acetaminophen Plasma/Serum Alcohol Crossmatch 11/22/19 11/22/19 11/22/19 23:27 23:27 23:27 WBC RBC Hgb Hct MCH RDW Plt Count Lymph % (Auto) [place] % (Auto) [place] # Baso # Seg Neutrophils % Seg Neuts % (Manual) Lymphocytes % (Manual) Monocytes % (Manual) Seg Neutrophils # Seg Neutrophils # Man Lymphocytes # (Manual) Monocytes # (Manual) Eosinophils # (Manual) Basophils # (Manual) PT INR APTT ABG pH ABG pO2 ABG HCO3 ABG O2 Saturation ABG Base Excess ABG Hemoglobin Oxyhemoglobin Sodium Potassium 2.4 L* Chloride 85.1 L Carbon Dioxide 19 L BUN Creatinine 0.5 L Glucose 261 H POC Glucose Lactic Acid Calcium Ionized Calcium Phosphorus Magnesium Total Bilirubin AST 609 H ALT 152 H Alkaline Phosphatase 160 H Ammonia 117.0 H Total Creatine Kinase 139 H CK-MB (CK-2) 8.3 H CK-MB (CK-2) Rel Index 5.9 H Total Protein Albumin 3.6 L Urine WBC (Auto) Vancomycin Trough Salicylates < 0.3 L Acetaminophen Plasma/Serum Alcohol Crossmatch 11/22/19 11/22/19 11/23/19 23:27 23:27 01:10 WBC RBC Hgb Hct MCH RDW Plt Count Lymph % (Auto) [place] % (Auto) [place] # Baso # Seg Neutrophils % Seg Neuts % (Manual) Lymphocytes % (Manual) Monocytes % (Manual) Seg Neutrophils # Seg Neutrophils # Man Lymphocytes # (Manual) Monocytes # (Manual) Eosinophils # (Manual) Basophils # (Manual) PT INR APTT ABG pH 7.273 L ABG pO2 209.7 H ABG HCO3 ABG O2 Saturation 99.2 H ABG Base Excess -3.9 L ABG Hemoglobin 10.6 L Oxyhemoglobin 93.9 L Sodium Potassium Chloride Carbon Dioxide BUN Creatinine Glucose POC Glucose Lactic Acid Calcium Ionized Calcium Phosphorus Magnesium Total Bilirubin AST ALT Alkaline Phosphatase Ammonia Total Creatine Kinase CK-MB (CK-2) CK-MB (CK-2) Rel Index Total Protein Albumin Urine WBC (Auto) Vancomycin Trough Salicylates Acetaminophen < 5.0 L Plasma/Serum Alcohol 0.08 H Crossmatch 11/23/19 11/23/19 11/23/19 01:19 01:19 03:47 WBC RBC Hgb Hct MCH RDW Plt Count Lymph % (Auto) [place] % (Auto) [place] # Baso # Seg Neutrophils % Seg Neuts % (Manual) Lymphocytes % (Manual) Monocytes % (Manual) Seg Neutrophils # Seg Neutrophils # Man Lymphocytes # (Manual) Monocytes # (Manual) Eosinophils # (Manual) Basophils # (Manual) PT 16.3 H INR 1.29 H APTT ABG pH ABG pO2 ABG HCO3 ABG O2 Saturation ABG Base Excess ABG Hemoglobin Oxyhemoglobin Sodium Potassium Chloride Carbon Dioxide BUN Creatinine Glucose POC Glucose Lactic Acid 2.10 H* 5.00 H* Calcium Ionized Calcium Phosphorus Magnesium Total Bilirubin AST ALT Alkaline Phosphatase Ammonia Total Creatine Kinase CK-MB (CK-2) CK-MB (CK-2) Rel Index Total Protein Albumin Urine WBC (Auto) Vancomycin Trough Salicylates Acetaminophen Plasma/Serum Alcohol Crossmatch 11/23/19 11/23/19 11/23/19 03:47 03:47 04:53 WBC RBC Hgb 9.4 L Hct MCH RDW Plt Count Lymph % (Auto) [place] % (Auto) [place] # Baso # Seg Neutrophils % Seg Neuts % (Manual) Lymphocytes % (Manual) Monocytes % (Manual) Seg Neutrophils # Seg Neutrophils # Man Lymphocytes # (Manual) Monocytes # (Manual) Eosinophils # (Manual) Basophils # (Manual) PT 17.0 H INR 1.36 H APTT 128.2 H* ABG pH ABG pO2 ABG HCO3 ABG O2 Saturation ABG Base Excess ABG Hemoglobin Oxyhemoglobin Sodium Potassium Chloride Carbon Dioxide 18 L BUN Creatinine 0.5 L Glucose 105 H POC Glucose Lactic Acid Calcium 8.3 L Ionized Calcium Phosphorus 2.40 L Magnesium Total Bilirubin 1.30 H AST 761 H ALT 158 H Alkaline Phosphatase 143 H Ammonia Total Creatine Kinase CK-MB (CK-2) CK-MB (CK-2) Rel Index Total Protein Albumin 2.8 L Urine WBC (Auto) Vancomycin Trough Salicylates Acetaminophen Plasma/Serum Alcohol Crossmatch 11/23/19 11/23/19 11/23/19 05:12 06:32 06:32 WBC 16.8 H RBC 3.31 L Hgb 8.9 L Hct 28.7 L MCH 27 L RDW 18.6 H Plt Count Lymph % (Auto) [place] % (Auto) [place] # Baso # Seg Neutrophils % Seg Neuts % (Manual) 94.0 H Lymphocytes % (Manual) 1.0 L Monocytes % (Manual) Seg Neutrophils # Seg Neutrophils # Man 15.8 H Lymphocytes # (Manual) 0.2 L Monocytes # (Manual) Eosinophils # (Manual) Basophils # (Manual) PT INR APTT ABG pH ABG pO2 ABG HCO3 ABG O2 Saturation ABG Base Excess -3.2 L ABG Hemoglobin 9.0 L Oxyhemoglobin 93.6 L Sodium Potassium Chloride Carbon Dioxide BUN Creatinine Glucose POC Glucose Lactic Acid Calcium Ionized Calcium 4.5 L Phosphorus Magnesium Total Bilirubin AST ALT Alkaline Phosphatase Ammonia Total Creatine Kinase CK-MB (CK-2) CK-MB (CK-2) Rel Index Total Protein Albumin Urine WBC (Auto) Vancomycin Trough Salicylates Acetaminophen Plasma/Serum Alcohol Crossmatch 11/23/19 11/24/19 11/24/19 06:32 04:35 04:35 WBC RBC Hgb Hct MCH RDW Plt Count Lymph % (Auto) [place] % (Auto) [place] # Baso # Seg Neutrophils % Seg Neuts % (Manual) Lymphocytes % (Manual) Monocytes % (Manual) Seg Neutrophils # Seg Neutrophils # Man Lymphocytes # (Manual) Monocytes # (Manual) Eosinophils # (Manual) Basophils # (Manual) PT INR APTT ABG pH ABG pO2 ABG HCO3 ABG O2 Saturation ABG Base Excess ABG Hemoglobin Oxyhemoglobin Sodium Potassium Chloride Carbon Dioxide BUN Creatinine Glucose POC Glucose Lactic Acid 3.30 H* Calcium Ionized Calcium Phosphorus Magnesium 1.40 L Total Bilirubin AST ALT Alkaline Phosphatase Ammonia 98.0 H Total Creatine Kinase CK-MB (CK-2) CK-MB (CK-2) Rel Index Total Protein Albumin Urine WBC (Auto) Vancomycin Trough Salicylates Acetaminophen Plasma/Serum Alcohol Crossmatch 11/24/19 11/25/19 11/25/19 05:22 04:34 05:05 WBC 17.3 H RBC 2.88 L Hgb 7.8 L Hct 24.6 L MCH 27 L RDW 18.5 H Plt Count Lymph % (Auto) 7.7 L [place] % (Auto) 9.7 H [place] # 1.7 H Baso # Seg Neutrophils % 82.2 H Seg Neuts % (Manual) Lymphocytes % (Manual) Monocytes % (Manual) Seg Neutrophils # 14.2 H Seg Neutrophils # Man Lymphocytes # (Manual) Monocytes # (Manual) Eosinophils # (Manual) Basophils # (Manual) PT INR APTT ABG pH 7.475 H ABG pO2 ABG HCO3 29.4 H 32.3 H ABG O2 Saturation ABG Base Excess 5.4 H 6.9 H ABG Hemoglobin 9.0 L 10.6 L Oxyhemoglobin 94.3 L Sodium Potassium Chloride Carbon Dioxide BUN Creatinine Glucose POC Glucose Lactic Acid Calcium Ionized Calcium Phosphorus Magnesium Total Bilirubin AST ALT Alkaline Phosphatase Ammonia Total Creatine Kinase CK-MB (CK-2) CK-MB (CK-2) Rel Index Total Protein Albumin Urine WBC (Auto) Vancomycin Trough Salicylates Acetaminophen Plasma/Serum Alcohol Crossmatch 11/25/19 11/25/19 11/26/19 05:05 22:46 03:31 WBC RBC Hgb Hct MCH RDW Plt Count Lymph % (Auto) [place] % (Auto) [place] # Baso # Seg Neutrophils % Seg Neuts % (Manual) Lymphocytes % (Manual) Monocytes % (Manual) Seg Neutrophils # Seg Neutrophils # Man Lymphocytes # (Manual) Monocytes # (Manual) Eosinophils # (Manual) Basophils # (Manual) PT INR APTT ABG pH 7.459 H ABG pO2 ABG HCO3 34.2 H ABG O2 Saturation ABG Base Excess 9.4 H ABG Hemoglobin 7.6 L Oxyhemoglobin 94.8 L Sodium 152 H D 147 H Potassium 2.3 L* D 2.8 L* D Chloride 107.8 H Carbon Dioxide 31 H D 33 H BUN Creatinine 0.6 L 0.6 L Glucose 148 H 177 H POC Glucose Lactic Acid Calcium Ionized Calcium Phosphorus Magnesium Total Bilirubin AST 105 H ALT 71 H Alkaline Phosphatase 155 H Ammonia Total Creatine Kinase CK-MB (CK-2) CK-MB (CK-2) Rel Index Total Protein 5.2 L D Albumin 2.9 L Urine WBC (Auto) Vancomycin Trough Salicylates Acetaminophen Plasma/Serum Alcohol Crossmatch 11/26/19 11/26/19 11/27/19 08:24 08:24 04:20 WBC 12.0 H RBC 3.00 L Hgb 8.0 L 9.3 L Hct 25.9 L 29.7 L MCH 27 L RDW 18.5 H Plt Count Lymph % (Auto) [place] % (Auto) [place] # Baso # Seg Neutrophils % Seg Neuts % (Manual) 89.0 H Lymphocytes % (Manual) 4.0 L Monocytes % (Manual) Seg Neutrophils # Seg Neutrophils # Man 10.7 H Lymphocytes # (Manual) 0.5 L Monocytes # (Manual) Eosinophils # (Manual) Basophils # (Manual) PT INR APTT ABG pH ABG pO2 ABG HCO3 ABG O2 Saturation ABG Base Excess ABG Hemoglobin Oxyhemoglobin Sodium 146 H Potassium 3.4 L D Chloride Carbon Dioxide BUN Creatinine 0.5 L Glucose 165 H POC Glucose Lactic Acid Calcium Ionized Calcium Phosphorus Magnesium Total Bilirubin AST 57 H ALT Alkaline Phosphatase 166 H Ammonia Total Creatine Kinase CK-MB (CK-2) CK-MB (CK-2) Rel Index Total Protein Albumin 2.9 L Urine WBC (Auto) Vancomycin Trough Salicylates Acetaminophen Plasma/Serum Alcohol Crossmatch 11/27/19 11/27/19 11/27/19 04:28 04:28 04:42 WBC RBC Hgb Hct MCH RDW Plt Count Lymph % (Auto) [place] % (Auto) [place] # Baso # Seg Neutrophils % Seg Neuts % (Manual) Lymphocytes % (Manual) Monocytes % (Manual) Seg Neutrophils # Seg Neutrophils # Man Lymphocytes # (Manual) Monocytes # (Manual) Eosinophils # (Manual) Basophils # (Manual) PT INR APTT ABG pH 7.470 H ABG pO2 74.0 L ABG HCO3 33.8 H ABG O2 Saturation ABG Base Excess 9.1 H ABG Hemoglobin 8.7 L Oxyhemoglobin 94.7 L Sodium 146 H Potassium 2.9 L* Chloride Carbon Dioxide BUN 25 H Creatinine Glucose 213 H POC Glucose Lactic Acid Calcium Ionized Calcium Phosphorus 1.00 L Magnesium Total Bilirubin AST ALT Alkaline Phosphatase Ammonia Total Creatine Kinase CK-MB (CK-2) CK-MB (CK-2) Rel Index Total Protein Albumin Urine WBC (Auto) Vancomycin Trough Salicylates Acetaminophen Plasma/Serum Alcohol Crossmatch 11/27/19 11/27/19 11/27/19 05:37 12:20 15:46 WBC RBC Hgb Hct MCH RDW Plt Count Lymph % (Auto) [place] % (Auto) [place] # Baso # Seg Neutrophils % Seg Neuts % (Manual) Lymphocytes % (Manual) Monocytes % (Manual) Seg Neutrophils # Seg Neutrophils # Man Lymphocytes # (Manual) Monocytes # (Manual) Eosinophils # (Manual) Basophils # (Manual) PT INR APTT ABG pH ABG pO2 ABG HCO3 ABG O2 Saturation ABG Base Excess ABG Hemoglobin Oxyhemoglobin Sodium 146 H Potassium 3.5 L D Chloride Carbon Dioxide BUN 24 H Creatinine 0.6 L Glucose 187 H POC Glucose 117 H 220 H Lactic Acid Calcium Ionized Calcium Phosphorus Magnesium Total Bilirubin AST ALT Alkaline Phosphatase Ammonia Total Creatine Kinase CK-MB (CK-2) CK-MB (CK-2) Rel Index Total Protein Albumin Urine WBC (Auto) Vancomycin Trough Salicylates Acetaminophen Plasma/Serum Alcohol Crossmatch 11/27/19 11/28/19 11/28/19 17:28 05:00 05:02 WBC RBC Hgb Hct MCH RDW Plt Count Lymph % (Auto) [place] % (Auto) [place] # Baso # Seg Neutrophils % Seg Neuts % (Manual) Lymphocytes % (Manual) Monocytes % (Manual) Seg Neutrophils # Seg Neutrophils # Man Lymphocytes # (Manual) Monocytes # (Manual) Eosinophils # (Manual) Basophils # (Manual) PT INR APTT ABG pH ABG pO2 72.4 L ABG HCO3 33.6 H ABG O2 Saturation 94.1 L ABG Base Excess 7.3 H ABG Hemoglobin Oxyhemoglobin 91.8 L Sodium 146 H Potassium 3.3 L Chloride Carbon Dioxide BUN 25 H Creatinine 0.6 L Glucose 176 H POC Glucose 198 H Lactic Acid Calcium Ionized Calcium Phosphorus Magnesium Total Bilirubin AST ALT Alkaline Phosphatase Ammonia Total Creatine Kinase CK-MB (CK-2) CK-MB (CK-2) Rel Index Total Protein Albumin Urine WBC (Auto) Vancomycin Trough Salicylates Acetaminophen Plasma/Serum Alcohol Crossmatch 11/28/19 11/28/19 11/29/19 05:02 18:55 10:43 WBC 15.2 H 19.0 H RBC 3.06 L 3.01 L Hgb 8.3 L 8.3 L Hct 27.0 L 26.4 L MCH 27 L RDW 19.0 H 19.7 H Plt Count 479 H 611 H Lymph % (Auto) [place] % (Auto) [place] # Baso # Seg Neutrophils % Seg Neuts % (Manual) 92.0 H Lymphocytes % (Manual) 2.0 L Monocytes % (Manual) Seg Neutrophils # Seg Neutrophils # Man 14.0 H Lymphocytes # (Manual) 0.3 L Monocytes # (Manual) Eosinophils # (Manual) Basophils # (Manual) PT INR APTT ABG pH ABG pO2 ABG HCO3 ABG O2 Saturation ABG Base Excess ABG Hemoglobin Oxyhemoglobin Sodium Potassium Chloride Carbon Dioxide BUN Creatinine Glucose POC Glucose 138 H Lactic Acid Calcium Ionized Calcium Phosphorus Magnesium Total Bilirubin AST ALT Alkaline Phosphatase Ammonia Total Creatine Kinase CK-MB (CK-2) CK-MB (CK-2) Rel Index Total Protein Albumin Urine WBC (Auto) Vancomycin Trough Salicylates Acetaminophen Plasma/Serum Alcohol Crossmatch 11/29/19 11/29/19 11/29/19 10:43 12:27 19:25 WBC RBC Hgb Hct MCH RDW Plt Count Lymph % (Auto) [place] % (Auto) [place] # Baso # Seg Neutrophils % Seg Neuts % (Manual) Lymphocytes % (Manual) Monocytes % (Manual) Seg Neutrophils # Seg Neutrophils # Man Lymphocytes # (Manual) Monocytes # (Manual) Eosinophils # (Manual) Basophils # (Manual) PT INR APTT ABG pH ABG pO2 ABG HCO3 ABG O2 Saturation ABG Base Excess ABG Hemoglobin Oxyhemoglobin Sodium Potassium 2.8 L* Chloride Carbon Dioxide BUN 20 H Creatinine 0.5 L Glucose 121 H POC Glucose 128 H 120 H Lactic Acid Calcium Ionized Calcium Phosphorus Magnesium Total Bilirubin AST ALT Alkaline Phosphatase Ammonia Total Creatine Kinase CK-MB (CK-2) CK-MB (CK-2) Rel Index Total Protein Albumin Urine WBC (Auto) Vancomycin Trough Salicylates Acetaminophen Plasma/Serum Alcohol Crossmatch 11/29/19 11/30/19 11/30/19 23:46 04:10 05:02 WBC RBC Hgb Hct MCH RDW Plt Count Lymph % (Auto) [place] % (Auto) [place] # Baso # Seg Neutrophils % Seg Neuts % (Manual) Lymphocytes % (Manual) Monocytes % (Manual) Seg Neutrophils # Seg Neutrophils # Man Lymphocytes # (Manual) Monocytes # (Manual) Eosinophils # (Manual) Basophils # (Manual) PT INR APTT ABG pH ABG pO2 76.3 L ABG HCO3 32.5 H ABG O2 Saturation ABG Base Excess 6.9 H ABG Hemoglobin 8.0 L Oxyhemoglobin 92.6 L Sodium Potassium Chloride Carbon Dioxide BUN Creatinine Glucose POC Glucose 116 H 128 H Lactic Acid Calcium Ionized Calcium Phosphorus Magnesium Total Bilirubin AST ALT Alkaline Phosphatase Ammonia Total Creatine Kinase CK-MB (CK-2) CK-MB (CK-2) Rel Index Total Protein Albumin Urine WBC (Auto) Vancomycin Trough Salicylates Acetaminophen Plasma/Serum Alcohol Crossmatch 11/30/19 11/30/19 11/30/19 05:25 05:25 12:59 WBC 18.4 H RBC 3.10 L Hgb 8.5 L Hct 27.5 L MCH 27 L RDW 20.9 H Plt Count 691 H Lymph % (Auto) 7.1 L [place] % (Auto) 7.7 H [place] # 1.4 H Baso # Seg Neutrophils % 83.4 H Seg Neuts % (Manual) Lymphocytes % (Manual) Monocytes % (Manual) Seg Neutrophils # 15.4 H Seg Neutrophils # Man Lymphocytes # (Manual) Monocytes # (Manual) Eosinophils # (Manual) Basophils # (Manual) PT INR APTT ABG pH ABG pO2 ABG HCO3 ABG O2 Saturation ABG Base Excess ABG Hemoglobin Oxyhemoglobin Sodium 146 H Potassium Chloride 107.2 H Carbon Dioxide BUN Creatinine 0.5 L Glucose 132 H POC Glucose 124 H Lactic Acid Calcium Ionized Calcium Phosphorus Magnesium Total Bilirubin AST 246 H ALT 274 H Alkaline Phosphatase 203 H Ammonia Total Creatine Kinase CK-MB (CK-2) CK-MB (CK-2) Rel Index Total Protein 5.4 L Albumin 2.9 L Urine WBC (Auto) Vancomycin Trough Salicylates Acetaminophen Plasma/Serum Alcohol Crossmatch 11/30/19 12/01/19 12/01/19 17:53 00:05 05:10 WBC RBC Hgb Hct MCH RDW Plt Count Lymph % (Auto) [place] % (Auto) [place] # Baso # Seg Neutrophils % Seg Neuts % (Manual) Lymphocytes % (Manual) Monocytes % (Manual) Seg Neutrophils # Seg Neutrophils # Man Lymphocytes # (Manual) Monocytes # (Manual) Eosinophils # (Manual) Basophils # (Manual) PT INR APTT ABG pH ABG pO2 ABG HCO3 ABG O2 Saturation ABG Base Excess ABG Hemoglobin Oxyhemoglobin Sodium Potassium Chloride Carbon Dioxide BUN Creatinine Glucose POC Glucose 113 H 143 H 145 H Lactic Acid Calcium Ionized Calcium Phosphorus Magnesium Total Bilirubin AST ALT Alkaline Phosphatase Ammonia Total Creatine Kinase CK-MB (CK-2) CK-MB (CK-2) Rel Index Total Protein Albumin Urine WBC (Auto) Vancomycin Trough Salicylates Acetaminophen Plasma/Serum Alcohol Crossmatch 12/01/19 12/01/19 12/01/19 05:33 08:23 08:23 WBC 22.7 H RBC 2.88 L Hgb 7.9 L Hct 25.2 L MCH 27 L RDW 21.0 H Plt Count 732 H Lymph % (Auto) [place] % (Auto) [place] # Baso # Seg Neutrophils % Seg Neuts % (Manual) 91.0 H Lymphocytes % (Manual) 3.0 L Monocytes % (Manual) Seg Neutrophils # Seg Neutrophils # Man 20.7 H Lymphocytes # (Manual) 0.7 L Monocytes # (Manual) 1.1 H Eosinophils # (Manual) Basophils # (Manual) PT INR APTT ABG pH ABG pO2 68.6 L ABG HCO3 34.1 H ABG O2 Saturation ABG Base Excess 9.0 H ABG Hemoglobin 6.5 L Oxyhemoglobin 94.7 L Sodium Potassium Chloride Carbon Dioxide BUN Creatinine 0.5 L Glucose 125 H POC Glucose Lactic Acid Calcium Ionized Calcium Phosphorus Magnesium Total Bilirubin AST ALT Alkaline Phosphatase Ammonia Total Creatine Kinase CK-MB (CK-2) CK-MB (CK-2) Rel Index Total Protein Albumin Urine WBC (Auto) Vancomycin Trough Salicylates Acetaminophen Plasma/Serum Alcohol Crossmatch 12/01/19 12/01/19 12/01/19 13:21 17:54 20:59 WBC RBC Hgb Hct MCH RDW Plt Count Lymph % (Auto) [place] % (Auto) [place] # Baso # Seg Neutrophils % Seg Neuts % (Manual) Lymphocytes % (Manual) Monocytes % (Manual) Seg Neutrophils # Seg Neutrophils # Man Lymphocytes # (Manual) Monocytes # (Manual) Eosinophils # (Manual) Basophils # (Manual) PT INR APTT ABG pH ABG pO2 78.3 L ABG HCO3 33.8 H ABG O2 Saturation 94.9 L ABG Base Excess 7.9 H ABG Hemoglobin 11.5 L Oxyhemoglobin 92.3 L Sodium Potassium Chloride Carbon Dioxide BUN Creatinine Glucose POC Glucose 111 H 115 H Lactic Acid Calcium Ionized Calcium Phosphorus Magnesium Total Bilirubin AST ALT Alkaline Phosphatase Ammonia Total Creatine Kinase CK-MB (CK-2) CK-MB (CK-2) Rel Index Total Protein Albumin Urine WBC (Auto) Vancomycin Trough Salicylates Acetaminophen Plasma/Serum Alcohol Crossmatch 12/02/19 12/03/19 12/04/19 12:55 20:00 04:26 WBC 15.2 H RBC 2.69 L Hgb 7.4 L Hct 23.6 L MCH 27 L RDW 19.9 H Plt Count 838 H Lymph % (Auto) [place] % (Auto) [place] # Baso # Seg Neutrophils % Seg Neuts % (Manual) Lymphocytes % (Manual) Monocytes % (Manual) Seg Neutrophils # Seg Neutrophils # Man Lymphocytes # (Manual) Monocytes # (Manual) Eosinophils # (Manual) Basophils # (Manual) PT INR APTT ABG pH ABG pO2 68.3 L ABG HCO3 33.5 H ABG O2 Saturation 93.5 L ABG Base Excess 8.4 H ABG Hemoglobin 7.3 L Oxyhemoglobin 90.9 L Sodium Potassium Chloride Carbon Dioxide BUN Creatinine Glucose POC Glucose 107 H Lactic Acid Calcium Ionized Calcium Phosphorus Magnesium Total Bilirubin AST ALT Alkaline Phosphatase Ammonia Total Creatine Kinase CK-MB (CK-2) CK-MB (CK-2) Rel Index Total Protein Albumin Urine WBC (Auto) Vancomycin Trough Salicylates Acetaminophen Plasma/Serum Alcohol Crossmatch 12/04/19 12/04/19 12/04/19 04:26 07:45 12:02 WBC 15.9 H RBC 2.88 L Hgb 7.9 L Hct 25.1 L MCH RDW 20.4 H Plt Count 839 H Lymph % (Auto) 11.3 L [place] % (Auto) 15.2 H [place] # 2.4 H Baso # Seg Neutrophils % 72.4 H Seg Neuts % (Manual) Lymphocytes % (Manual) Monocytes % (Manual) Seg Neutrophils # 11.5 H Seg Neutrophils # Man Lymphocytes # (Manual) Monocytes # (Manual) Eosinophils # (Manual) Basophils # (Manual) PT INR APTT ABG pH ABG pO2 ABG HCO3 ABG O2 Saturation ABG Base Excess ABG Hemoglobin Oxyhemoglobin Sodium Potassium Chloride 96.5 L Carbon Dioxide BUN 21 H Creatinine 0.6 L Glucose 107 H POC Glucose 138 H Lactic Acid Calcium Ionized Calcium Phosphorus Magnesium Total Bilirubin AST ALT Alkaline Phosphatase Ammonia Total Creatine Kinase CK-MB (CK-2) CK-MB (CK-2) Rel Index Total Protein Albumin Urine WBC (Auto) Vancomycin Trough Salicylates Acetaminophen Plasma/Serum Alcohol Crossmatch 12/04/19 12/05/19 12/05/19 18:16 11:55 18:36 WBC RBC Hgb Hct MCH RDW Plt Count Lymph % (Auto) [place] % (Auto) [place] # Baso # Seg Neutrophils % Seg Neuts % (Manual) Lymphocytes % (Manual) Monocytes % (Manual) Seg Neutrophils # Seg Neutrophils # Man Lymphocytes # (Manual) Monocytes # (Manual) Eosinophils # (Manual) Basophils # (Manual) PT INR APTT ABG pH ABG pO2 ABG HCO3 ABG O2 Saturation ABG Base Excess ABG Hemoglobin Oxyhemoglobin Sodium Potassium Chloride Carbon Dioxide BUN Creatinine Glucose POC Glucose 135 H 125 H 135 H Lactic Acid Calcium Ionized Calcium Phosphorus Magnesium Total Bilirubin AST ALT Alkaline Phosphatase Ammonia Total Creatine Kinase CK-MB (CK-2) CK-MB (CK-2) Rel Index Total Protein Albumin Urine WBC (Auto) Vancomycin Trough Salicylates Acetaminophen Plasma/Serum Alcohol Crossmatch 12/05/19 12/06/19 12/06/19 23:30 04:14 05:43 WBC RBC Hgb Hct MCH RDW Plt Count Lymph % (Auto) [place] % (Auto) [place] # Baso # Seg Neutrophils % Seg Neuts % (Manual) Lymphocytes % (Manual) Monocytes % (Manual) Seg Neutrophils # Seg Neutrophils # Man Lymphocytes # (Manual) Monocytes # (Manual) Eosinophils # (Manual) Basophils # (Manual) PT INR APTT ABG pH ABG pO2 ABG HCO3 ABG O2 Saturation ABG Base Excess ABG Hemoglobin Oxyhemoglobin Sodium Potassium 5.6 H Chloride 95.0 L Carbon Dioxide BUN 48 H Creatinine 1.3 H D Glucose POC Glucose 126 H 121 H Lactic Acid Calcium Ionized Calcium Phosphorus Magnesium Total Bilirubin AST 89 H ALT 98 H Alkaline Phosphatase 476 H Ammonia Total Creatine Kinase CK-MB (CK-2) CK-MB (CK-2) Rel Index Total Protein Albumin 2.8 L Urine WBC (Auto) Vancomycin Trough Salicylates Acetaminophen Plasma/Serum Alcohol Crossmatch 12/06/19 12/06/19 12/07/19 10:39 14:34 00:19 WBC 17.3 H RBC 2.60 L Hgb 7.1 L Hct 22.7 L MCH 27 L RDW 20.1 H Plt Count 832 H Lymph % (Auto) [place] % (Auto) [place] # Baso # Seg Neutrophils % Seg Neuts % (Manual) Lymphocytes % (Manual) Monocytes % (Manual) Seg Neutrophils # Seg Neutrophils # Man Lymphocytes # (Manual) Monocytes # (Manual) Eosinophils # (Manual) Basophils # (Manual) PT INR APTT ABG pH ABG pO2 ABG HCO3 ABG O2 Saturation ABG Base Excess ABG Hemoglobin Oxyhemoglobin Sodium Potassium Chloride Carbon Dioxide BUN Creatinine Glucose POC Glucose 128 H 136 H Lactic Acid Calcium Ionized Calcium Phosphorus Magnesium Total Bilirubin AST ALT Alkaline Phosphatase Ammonia Total Creatine Kinase CK-MB (CK-2) CK-MB (CK-2) Rel Index Total Protein Albumin Urine WBC (Auto) Vancomycin Trough Salicylates Acetaminophen Plasma/Serum Alcohol Crossmatch 12/07/19 12/07/19 12/07/19 03:44 03:44 05:53 WBC 16.2 H RBC 2.56 L Hgb 7.1 L Hct 22.3 L MCH RDW 19.4 H Plt Count 782 H Lymph % (Auto) [place] % (Auto) [place] # Baso # Seg Neutrophils % Seg Neuts % (Manual) Lymphocytes % (Manual) Monocytes % (Manual) Seg Neutrophils # Seg Neutrophils # Man Lymphocytes # (Manual) Monocytes # (Manual) Eosinophils # (Manual) Basophils # (Manual) PT INR APTT ABG pH ABG pO2 ABG HCO3 ABG O2 Saturation ABG Base Excess ABG Hemoglobin Oxyhemoglobin Sodium Potassium Chloride 95.6 L Carbon Dioxide BUN 56 H Creatinine 1.4 H Glucose 120 H POC Glucose 128 H Lactic Acid Calcium 10.3 H Ionized Calcium Phosphorus Magnesium Total Bilirubin AST ALT Alkaline Phosphatase Ammonia Total Creatine Kinase CK-MB (CK-2) CK-MB (CK-2) Rel Index Total Protein Albumin Urine WBC (Auto) Vancomycin Trough Salicylates Acetaminophen Plasma/Serum Alcohol Crossmatch 12/07/19 12/07/19 12/08/19 12:54 23:47 00:20 WBC RBC Hgb Hct MCH RDW Plt Count Lymph % (Auto) [place] % (Auto) [place] # Baso # Seg Neutrophils % Seg Neuts % (Manual) Lymphocytes % (Manual) Monocytes % (Manual) Seg Neutrophils # Seg Neutrophils # Man Lymphocytes # (Manual) Monocytes # (Manual) Eosinophils # (Manual) Basophils # (Manual) PT INR APTT ABG pH ABG pO2 ABG HCO3 ABG O2 Saturation ABG Base Excess ABG Hemoglobin Oxyhemoglobin Sodium Potassium Chloride Carbon Dioxide BUN Creatinine Glucose POC Glucose 128 H 130 H 124 H Lactic Acid Calcium Ionized Calcium Phosphorus Magnesium Total Bilirubin AST ALT Alkaline Phosphatase Ammonia Total Creatine Kinase CK-MB (CK-2) CK-MB (CK-2) Rel Index Total Protein Albumin Urine WBC (Auto) Vancomycin Trough Salicylates Acetaminophen Plasma/Serum Alcohol Crossmatch 12/08/19 12/08/19 12/08/19 06:38 12:04 18:26 WBC RBC Hgb Hct MCH RDW Plt Count Lymph % (Auto) [place] % (Auto) [place] # Baso # Seg Neutrophils % Seg Neuts % (Manual) Lymphocytes % (Manual) Monocytes % (Manual) Seg Neutrophils # Seg Neutrophils # Man Lymphocytes # (Manual) Monocytes # (Manual) Eosinophils # (Manual) Basophils # (Manual) PT INR APTT ABG pH ABG pO2 ABG HCO3 ABG O2 Saturation ABG Base Excess ABG Hemoglobin Oxyhemoglobin Sodium Potassium Chloride Carbon Dioxide BUN Creatinine Glucose POC Glucose 137 H 129 H 150 H Lactic Acid Calcium Ionized Calcium Phosphorus Magnesium Total Bilirubin AST ALT Alkaline Phosphatase Ammonia Total Creatine Kinase CK-MB (CK-2) CK-MB (CK-2) Rel Index Total Protein Albumin Urine WBC (Auto) Vancomycin Trough Salicylates Acetaminophen Plasma/Serum Alcohol Crossmatch 12/09/19 12/09/19 12/09/19 00:56 05:34 06:13 WBC RBC Hgb Hct MCH RDW Plt Count Lymph % (Auto) [place] % (Auto) [place] # Baso # Seg Neutrophils % Seg Neuts % (Manual) Lymphocytes % (Manual) Monocytes % (Manual) Seg Neutrophils # Seg Neutrophils # Man Lymphocytes # (Manual) Monocytes # (Manual) Eosinophils # (Manual) Basophils # (Manual) PT INR APTT ABG pH ABG pO2 ABG HCO3 ABG O2 Saturation ABG Base Excess ABG Hemoglobin Oxyhemoglobin Sodium 146 H Potassium Chloride Carbon Dioxide BUN 66 H Creatinine 1.9 H Glucose 116 H POC Glucose 130 H 130 H Lactic Acid Calcium Ionized Calcium Phosphorus Magnesium Total Bilirubin AST ALT Alkaline Phosphatase Ammonia Total Creatine Kinase CK-MB (CK-2) CK-MB (CK-2) Rel Index Total Protein Albumin Urine WBC (Auto) Vancomycin Trough Salicylates Acetaminophen Plasma/Serum Alcohol Crossmatch 12/09/19 12/09/19 12/10/19 11:52 17:50 00:14 WBC RBC Hgb Hct MCH RDW Plt Count Lymph % (Auto) [place] % (Auto) [place] # Baso # Seg Neutrophils % Seg Neuts % (Manual) Lymphocytes % (Manual) Monocytes % (Manual) Seg Neutrophils # Seg Neutrophils # Man Lymphocytes # (Manual) Monocytes # (Manual) Eosinophils # (Manual) Basophils # (Manual) PT INR APTT ABG pH ABG pO2 ABG HCO3 ABG O2 Saturation ABG Base Excess ABG Hemoglobin Oxyhemoglobin Sodium Potassium Chloride Carbon Dioxide BUN Creatinine Glucose POC Glucose 135 H 120 H 116 H Lactic Acid Calcium Ionized Calcium Phosphorus Magnesium Total Bilirubin AST ALT Alkaline Phosphatase Ammonia Total Creatine Kinase CK-MB (CK-2) CK-MB (CK-2) Rel Index Total Protein Albumin Urine WBC (Auto) Vancomycin Trough Salicylates Acetaminophen Plasma/Serum Alcohol Crossmatch 12/10/19 12/10/19 12/10/19 05:38 11:38 17:34 WBC RBC Hgb Hct MCH RDW Plt Count Lymph % (Auto) [place] % (Auto) [place] # Baso # Seg Neutrophils % Seg Neuts % (Manual) Lymphocytes % (Manual) Monocytes % (Manual) Seg Neutrophils # Seg Neutrophils # Man Lymphocytes # (Manual) Monocytes # (Manual) Eosinophils # (Manual) Basophils # (Manual) PT INR APTT ABG pH ABG pO2 ABG HCO3 ABG O2 Saturation ABG Base Excess ABG Hemoglobin Oxyhemoglobin Sodium Potassium Chloride Carbon Dioxide BUN Creatinine Glucose POC Glucose 115 H 112 H 130 H Lactic Acid Calcium Ionized Calcium Phosphorus Magnesium Total Bilirubin AST ALT Alkaline Phosphatase Ammonia Total Creatine Kinase CK-MB (CK-2) CK-MB (CK-2) Rel Index Total Protein Albumin Urine WBC (Auto) Vancomycin Trough Salicylates Acetaminophen Plasma/Serum Alcohol Crossmatch 12/11/19 12/11/19 12/11/19 00:20 05:31 12:22 WBC RBC Hgb Hct MCH RDW Plt Count Lymph % (Auto) [place] % (Auto) [place] # Baso # Seg Neutrophils % Seg Neuts % (Manual) Lymphocytes % (Manual) Monocytes % (Manual) Seg Neutrophils # Seg Neutrophils # Man Lymphocytes # (Manual) Monocytes # (Manual) Eosinophils # (Manual) Basophils # (Manual) PT INR APTT ABG pH ABG pO2 ABG HCO3 ABG O2 Saturation ABG Base Excess ABG Hemoglobin Oxyhemoglobin Sodium Potassium Chloride Carbon Dioxide BUN Creatinine Glucose POC Glucose 124 H 132 H 128 H Lactic Acid Calcium Ionized Calcium Phosphorus Magnesium Total Bilirubin AST ALT Alkaline Phosphatase Ammonia Total Creatine Kinase CK-MB (CK-2) CK-MB (CK-2) Rel Index Total Protein Albumin Urine WBC (Auto) Vancomycin Trough Salicylates Acetaminophen Plasma/Serum Alcohol Crossmatch 12/11/19 12/11/19 12/12/19 18:04 23:42 03:51 WBC RBC Hgb Hct MCH RDW Plt Count Lymph % (Auto) [place] % (Auto) [place] # Baso # Seg Neutrophils % Seg Neuts % (Manual) Lymphocytes % (Manual) Monocytes % (Manual) Seg Neutrophils # Seg Neutrophils # Man Lymphocytes # (Manual) Monocytes # (Manual) Eosinophils # (Manual) Basophils # (Manual) PT INR APTT ABG pH ABG pO2 ABG HCO3 ABG O2 Saturation ABG Base Excess ABG Hemoglobin Oxyhemoglobin Sodium 149 H Potassium Chloride Carbon Dioxide 20 L D BUN 77 H Creatinine 2.8 H Glucose POC Glucose 133 H 154 H Lactic Acid Calcium Ionized Calcium Phosphorus Magnesium Total Bilirubin AST ALT Alkaline Phosphatase Ammonia Total Creatine Kinase CK-MB (CK-2) CK-MB (CK-2) Rel Index Total Protein Albumin Urine WBC (Auto) Vancomycin Trough Salicylates Acetaminophen Plasma/Serum Alcohol Crossmatch 12/12/19 12/12/19 12/12/19 05:18 05:26 10:30 WBC 18.0 H RBC 2.51 L Hgb 6.8 L Hct 22.0 L MCH 27 L RDW 19.9 H Plt Count 582 H Lymph % (Auto) [place] % (Auto) [place] # Baso # Seg Neutrophils % Seg Neuts % (Manual) Lymphocytes % (Manual) Monocytes % (Manual) Seg Neutrophils # Seg Neutrophils # Man Lymphocytes # (Manual) Monocytes # (Manual) Eosinophils # (Manual) Basophils # (Manual) PT INR APTT ABG pH ABG pO2 ABG HCO3 ABG O2 Saturation ABG Base Excess ABG Hemoglobin Oxyhemoglobin Sodium Potassium Chloride Carbon Dioxide BUN Creatinine Glucose POC Glucose 135 H Lactic Acid Calcium Ionized Calcium Phosphorus Magnesium Total Bilirubin AST ALT Alkaline Phosphatase Ammonia Total Creatine Kinase CK-MB (CK-2) CK-MB (CK-2) Rel Index Total Protein Albumin Urine WBC (Auto) Vancomycin Trough Salicylates Acetaminophen Plasma/Serum Alcohol Crossmatch See Detail 12/12/19 12/12/19 12/12/19 11:44 18:10 23:21 WBC RBC Hgb Hct MCH RDW Plt Count Lymph % (Auto) [place] % (Auto) [place] # Baso # Seg Neutrophils % Seg Neuts % (Manual) Lymphocytes % (Manual) Monocytes % (Manual) Seg Neutrophils # Seg Neutrophils # Man Lymphocytes # (Manual) Monocytes # (Manual) Eosinophils # (Manual) Basophils # (Manual) PT INR APTT ABG pH ABG pO2 ABG HCO3 ABG O2 Saturation ABG Base Excess ABG Hemoglobin Oxyhemoglobin Sodium Potassium Chloride Carbon Dioxide BUN Creatinine Glucose POC Glucose 108 H 107 H 126 H Lactic Acid Calcium Ionized Calcium Phosphorus Magnesium Total Bilirubin AST ALT Alkaline Phosphatase Ammonia Total Creatine Kinase CK-MB (CK-2) CK-MB (CK-2) Rel Index Total Protein Albumin Urine WBC (Auto) Vancomycin Trough Salicylates Acetaminophen Plasma/Serum Alcohol Crossmatch 12/13/19 12/13/19 12/13/19 05:41 07:48 07:48 WBC 38.3 H RBC 2.37 L Hgb 6.3 L Hct 20.9 L MCH 27 L RDW 20.2 H Plt Count 546 H Lymph % (Auto) [place] % (Auto) [place] # Baso # Seg Neutrophils % Seg Neuts % (Manual) 93.0 H Lymphocytes % (Manual) 1.0 L Monocytes % (Manual) Seg Neutrophils # Seg Neutrophils # Man 35.6 H Lymphocytes # (Manual) 0.4 L Monocytes # (Manual) Eosinophils # (Manual) Basophils # (Manual) 0.4 H PT INR APTT ABG pH ABG pO2 ABG HCO3 ABG O2 Saturation ABG Base Excess ABG Hemoglobin Oxyhemoglobin Sodium 152 H Potassium 3.1 L D Chloride 111.9 H Carbon Dioxide 21 L BUN 53 H Creatinine 1.9 H Glucose 141 H POC Glucose 128 H Lactic Acid Calcium Ionized Calcium Phosphorus Magnesium Total Bilirubin AST ALT Alkaline Phosphatase 316 H Ammonia Total Creatine Kinase CK-MB (CK-2) CK-MB (CK-2) Rel Index Total Protein Albumin 2.4 L Urine WBC (Auto) Vancomycin Trough Salicylates Acetaminophen Plasma/Serum Alcohol Crossmatch 12/13/19 12/13/19 12/14/19 18:17 23:19 05:36 WBC RBC Hgb Hct MCH RDW Plt Count Lymph % (Auto) [place] % (Auto) [place] # Baso # Seg Neutrophils % Seg Neuts % (Manual) Lymphocytes % (Manual) Monocytes % (Manual) Seg Neutrophils # Seg Neutrophils # Man Lymphocytes # (Manual) Monocytes # (Manual) Eosinophils # (Manual) Basophils # (Manual) PT INR APTT ABG pH ABG pO2 ABG HCO3 ABG O2 Saturation ABG Base Excess ABG Hemoglobin Oxyhemoglobin Sodium Potassium Chloride Carbon Dioxide BUN Creatinine Glucose POC Glucose 141 H 158 H 182 H Lactic Acid Calcium Ionized Calcium Phosphorus Magnesium Total Bilirubin AST ALT Alkaline Phosphatase Ammonia Total Creatine Kinase CK-MB (CK-2) CK-MB (CK-2) Rel Index Total Protein Albumin Urine WBC (Auto) Vancomycin Trough Salicylates Acetaminophen Plasma/Serum Alcohol Crossmatch 12/14/19 12/14/19 12/14/19 08:48 08:48 10:31 WBC 33.3 H RBC 2.70 L Hgb 7.9 L 8.0 L Hct 25.3 L 24.0 L MCH RDW 19.2 H Plt Count 476 H Lymph % (Auto) [place] % (Auto) [place] # Baso # Seg Neutrophils % Seg Neuts % (Manual) Lymphocytes % (Manual) Monocytes % (Manual) Seg Neutrophils # Seg Neutrophils # Man Lymphocytes # (Manual) Monocytes # (Manual) Eosinophils # (Manual) Basophils # (Manual) PT INR APTT ABG pH ABG pO2 ABG HCO3 ABG O2 Saturation ABG Base Excess ABG Hemoglobin Oxyhemoglobin Sodium 153 H Potassium 2.5 L* Chloride 114.9 H Carbon Dioxide 20 L BUN 38 H Creatinine 1.4 H Glucose 177 H POC Glucose Lactic Acid Calcium Ionized Calcium Phosphorus Magnesium Total Bilirubin AST ALT Alkaline Phosphatase Ammonia Total Creatine Kinase CK-MB (CK-2) CK-MB (CK-2) Rel Index Total Protein Albumin Urine WBC (Auto) Vancomycin Trough Salicylates Acetaminophen Plasma/Serum Alcohol Crossmatch 12/14/19 12/14/19 12/14/19 12:57 16:15 17:50 WBC RBC Hgb Hct MCH RDW Plt Count Lymph % (Auto) [place] % (Auto) [place] # Baso # Seg Neutrophils % Seg Neuts % (Manual) Lymphocytes % (Manual) Monocytes % (Manual) Seg Neutrophils # Seg Neutrophils # Man Lymphocytes # (Manual) Monocytes # (Manual) Eosinophils # (Manual) Basophils # (Manual) PT INR APTT ABG pH ABG pO2 73.6 L ABG HCO3 ABG O2 Saturation ABG Base Excess ABG Hemoglobin 7.6 L Oxyhemoglobin 94.0 L Sodium Potassium Chloride Carbon Dioxide BUN Creatinine Glucose POC Glucose 174 H 150 H Lactic Acid Calcium Ionized Calcium Phosphorus Magnesium Total Bilirubin AST ALT Alkaline Phosphatase Ammonia Total Creatine Kinase CK-MB (CK-2) CK-MB (CK-2) Rel Index Total Protein Albumin Urine WBC (Auto) Vancomycin Trough Salicylates Acetaminophen Plasma/Serum Alcohol Crossmatch 12/15/19 12/15/19 12/15/19 00:28 05:27 07:23 WBC 30.0 H RBC 3.11 L Hgb 8.6 L Hct 27.7 L MCH RDW 20.0 H Plt Count 473 H Lymph % (Auto) [place] % (Auto) [place] # Baso # Seg Neutrophils % Seg Neuts % (Manual) Lymphocytes % (Manual) Monocytes % (Manual) Seg Neutrophils # Seg Neutrophils # Man Lymphocytes # (Manual) Monocytes # (Manual) Eosinophils # (Manual) Basophils # (Manual) PT INR APTT ABG pH ABG pO2 ABG HCO3 ABG O2 Saturation ABG Base Excess ABG Hemoglobin Oxyhemoglobin Sodium Potassium Chloride Carbon Dioxide BUN Creatinine Glucose POC Glucose 167 H 148 H Lactic Acid Calcium Ionized Calcium Phosphorus Magnesium Total Bilirubin AST ALT Alkaline Phosphatase Ammonia Total Creatine Kinase CK-MB (CK-2) CK-MB (CK-2) Rel Index Total Protein Albumin Urine WBC (Auto) Vancomycin Trough Salicylates Acetaminophen Plasma/Serum Alcohol Crossmatch 12/15/19 12/15/19 12/15/19 07:23 12:21 17:41 WBC RBC Hgb Hct MCH RDW Plt Count Lymph % (Auto) [place] % (Auto) [place] # Baso # Seg Neutrophils % Seg Neuts % (Manual) Lymphocytes % (Manual) Monocytes % (Manual) Seg Neutrophils # Seg Neutrophils # Man Lymphocytes # (Manual) Monocytes # (Manual) Eosinophils # (Manual) Basophils # (Manual) PT INR APTT ABG pH ABG pO2 ABG HCO3 ABG O2 Saturation ABG Base Excess ABG Hemoglobin Oxyhemoglobin Sodium 147 H Potassium 3.5 L D Chloride 111.2 H Carbon Dioxide 19 L BUN 29 H Creatinine Glucose 126 H POC Glucose 154 H 144 H Lactic Acid Calcium Ionized Calcium Phosphorus Magnesium Total Bilirubin AST ALT Alkaline Phosphatase Ammonia Total Creatine Kinase CK-MB (CK-2) CK-MB (CK-2) Rel Index Total Protein Albumin Urine WBC (Auto) Vancomycin Trough Salicylates Acetaminophen Plasma/Serum Alcohol Crossmatch 12/16/19 12/16/19 12/16/19 00:22 05:30 05:44 WBC 30.8 H RBC 2.58 L Hgb 7.1 L Hct 22.7 L MCH RDW 19.6 H Plt Count 451 H Lymph % (Auto) [place] % (Auto) [place] # Baso # Seg Neutrophils % Seg Neuts % (Manual) Lymphocytes % (Manual) Monocytes % (Manual) Seg Neutrophils # Seg Neutrophils # Man Lymphocytes # (Manual) Monocytes # (Manual) Eosinophils # (Manual) Basophils # (Manual) PT INR APTT ABG pH ABG pO2 ABG HCO3 ABG O2 Saturation ABG Base Excess ABG Hemoglobin Oxyhemoglobin Sodium Potassium Chloride Carbon Dioxide BUN Creatinine Glucose POC Glucose 139 H 126 H Lactic Acid Calcium Ionized Calcium Phosphorus Magnesium Total Bilirubin AST ALT Alkaline Phosphatase Ammonia Total Creatine Kinase CK-MB (CK-2) CK-MB (CK-2) Rel Index Total Protein Albumin Urine WBC (Auto) Vancomycin Trough Salicylates Acetaminophen Plasma/Serum Alcohol Crossmatch 12/16/19 12/16/19 12/16/19 05:44 11:48 17:37 WBC RBC Hgb Hct MCH RDW Plt Count Lymph % (Auto) [place] % (Auto) [place] # Baso # Seg Neutrophils % Seg Neuts % (Manual) Lymphocytes % (Manual) Monocytes % (Manual) Seg Neutrophils # Seg Neutrophils # Man Lymphocytes # (Manual) Monocytes # (Manual) Eosinophils # (Manual) Basophils # (Manual) PT INR APTT ABG pH ABG pO2 ABG HCO3 ABG O2 Saturation ABG Base Excess ABG Hemoglobin Oxyhemoglobin Sodium Potassium 3.4 L Chloride 109.2 H Carbon Dioxide 19 L BUN 27 H Creatinine Glucose 124 H POC Glucose 125 H 148 H Lactic Acid Calcium Ionized Calcium Phosphorus Magnesium Total Bilirubin AST ALT Alkaline Phosphatase Ammonia Total Creatine Kinase CK-MB (CK-2) CK-MB (CK-2) Rel Index Total Protein Albumin Urine WBC (Auto) Vancomycin Trough Salicylates Acetaminophen Plasma/Serum Alcohol Crossmatch 12/16/19 12/17/19 12/17/19 23:43 05:28 12:47 WBC RBC Hgb Hct MCH RDW Plt Count Lymph % (Auto) [place] % (Auto) [place] # Baso # Seg Neutrophils % Seg Neuts % (Manual) Lymphocytes % (Manual) Monocytes % (Manual) Seg Neutrophils # Seg Neutrophils # Man Lymphocytes # (Manual) Monocytes # (Manual) Eosinophils # (Manual) Basophils # (Manual) PT INR APTT ABG pH ABG pO2 ABG HCO3 ABG O2 Saturation ABG Base Excess ABG Hemoglobin Oxyhemoglobin Sodium Potassium Chloride Carbon Dioxide BUN Creatinine Glucose POC Glucose 142 H 140 H 125 H Lactic Acid Calcium Ionized Calcium Phosphorus Magnesium Total Bilirubin AST ALT Alkaline Phosphatase Ammonia Total Creatine Kinase CK-MB (CK-2) CK-MB (CK-2) Rel Index Total Protein Albumin Urine WBC (Auto) Vancomycin Trough Salicylates Acetaminophen Plasma/Serum Alcohol Crossmatch 12/17/19 12/17/19 12/17/19 17:05 18:00 Unknown WBC RBC Hgb Hct MCH RDW Plt Count Lymph % (Auto) [place] % (Auto) [place] # Baso # Seg Neutrophils % Seg Neuts % (Manual) Lymphocytes % (Manual) Monocytes % (Manual) Seg Neutrophils # Seg Neutrophils # Man Lymphocytes # (Manual) Monocytes # (Manual) Eosinophils # (Manual) Basophils # (Manual) PT INR APTT ABG pH ABG pO2 68.1 L ABG HCO3 ABG O2 Saturation 93.7 L ABG Base Excess ABG Hemoglobin 5.0 L Oxyhemoglobin 91.7 L Sodium Potassium Chloride Carbon Dioxide BUN Creatinine Glucose POC Glucose 140 H Lactic Acid Calcium Ionized Calcium Phosphorus Magnesium Total Bilirubin AST ALT Alkaline Phosphatase Ammonia Total Creatine Kinase CK-MB (CK-2) CK-MB (CK-2) Rel Index Total Protein Albumin Urine WBC (Auto) Vancomycin Trough Salicylates Acetaminophen Plasma/Serum Alcohol Crossmatch 12/18/19 12/18/19 12/18/19 00:16 04:53 04:53 WBC 28.6 H RBC 2.27 L Hgb 6.3 L Hct 19.5 L* MCH RDW 20.0 H Plt Count 497 H Lymph % (Auto) [place] % (Auto) [place] # Baso # Seg Neutrophils % Seg Neuts % (Manual) Lymphocytes % (Manual) Monocytes % (Manual) Seg Neutrophils # Seg Neutrophils # Man Lymphocytes # (Manual) Monocytes # (Manual) Eosinophils # (Manual) Basophils # (Manual) PT INR APTT ABG pH ABG pO2 ABG HCO3 ABG O2 Saturation ABG Base Excess ABG Hemoglobin Oxyhemoglobin Sodium Potassium Chloride 107.9 H Carbon Dioxide 20 L BUN 27 H Creatinine 0.6 L Glucose 116 H POC Glucose 123 H Lactic Acid Calcium Ionized Calcium Phosphorus Magnesium Total Bilirubin AST ALT Alkaline Phosphatase Ammonia Total Creatine Kinase CK-MB (CK-2) CK-MB (CK-2) Rel Index Total Protein Albumin Urine WBC (Auto) Vancomycin Trough Salicylates Acetaminophen Plasma/Serum Alcohol Crossmatch 12/18/19 12/18/19 12/18/19 06:38 11:22 12:08 WBC RBC Hgb Hct MCH RDW Plt Count Lymph % (Auto) [place] % (Auto) [place] # Baso # Seg Neutrophils % Seg Neuts % (Manual) Lymphocytes % (Manual) Monocytes % (Manual) Seg Neutrophils # Seg Neutrophils # Man Lymphocytes # (Manual) Monocytes # (Manual) Eosinophils # (Manual) Basophils # (Manual) PT INR APTT ABG pH ABG pO2 ABG HCO3 ABG O2 Saturation ABG Base Excess ABG Hemoglobin Oxyhemoglobin Sodium Potassium Chloride Carbon Dioxide BUN Creatinine Glucose POC Glucose 120 H 127 H Lactic Acid Calcium Ionized Calcium Phosphorus Magnesium Total Bilirubin AST ALT Alkaline Phosphatase Ammonia Total Creatine Kinase CK-MB (CK-2) CK-MB (CK-2) Rel Index Total Protein Albumin Urine WBC (Auto) Vancomycin Trough Salicylates Acetaminophen Plasma/Serum Alcohol Crossmatch See Detail 12/18/19 12/18/19 12/18/19 14:05 17:49 23:53 WBC RBC Hgb Hct MCH RDW Plt Count Lymph % (Auto) [place] % (Auto) [place] # Baso # Seg Neutrophils % Seg Neuts % (Manual) Lymphocytes % (Manual) Monocytes % (Manual) Seg Neutrophils # Seg Neutrophils # Man Lymphocytes # (Manual) Monocytes # (Manual) Eosinophils # (Manual) Basophils # (Manual) PT INR APTT ABG pH 7.267 L ABG pO2 69.8 L ABG HCO3 ABG O2 Saturation 88.4 L ABG Base Excess ABG Hemoglobin 7.1 L Oxyhemoglobin 86.4 L Sodium Potassium Chloride Carbon Dioxide BUN Creatinine Glucose POC Glucose 157 H 128 H Lactic Acid Calcium Ionized Calcium Phosphorus Magnesium Total Bilirubin AST ALT Alkaline Phosphatase Ammonia Total Creatine Kinase CK-MB (CK-2) CK-MB (CK-2) Rel Index Total Protein Albumin Urine WBC (Auto) Vancomycin Trough Salicylates Acetaminophen Plasma/Serum Alcohol Crossmatch 12/19/19 12/19/19 12/19/19 03:37 03:37 05:25 WBC 31.3 H RBC 2.60 L Hgb 7.6 L Hct 23.0 L MCH RDW 19.4 H Plt Count 530 H Lymph % (Auto) [place] % (Auto) [place] # Baso # Seg Neutrophils % Seg Neuts % (Manual) Lymphocytes % (Manual) Monocytes % (Manual) Seg Neutrophils # Seg Neutrophils # Man Lymphocytes # (Manual) Monocytes # (Manual) Eosinophils # (Manual) Basophils # (Manual) PT INR APTT ABG pH ABG pO2 ABG HCO3 ABG O2 Saturation ABG Base Excess ABG Hemoglobin Oxyhemoglobin Sodium Potassium Chloride Carbon Dioxide 18 L BUN 36 H Creatinine Glucose 111 H POC Glucose 123 H Lactic Acid Calcium Ionized Calcium Phosphorus Magnesium Total Bilirubin AST ALT Alkaline Phosphatase Ammonia Total Creatine Kinase CK-MB (CK-2) CK-MB (CK-2) Rel Index Total Protein Albumin Urine WBC (Auto) Vancomycin Trough Salicylates Acetaminophen Plasma/Serum Alcohol Crossmatch 12/19/19 12/19/19 12/20/19 12:59 18:33 00:00 WBC RBC Hgb Hct MCH RDW Plt Count Lymph % (Auto) [place] % (Auto) [place] # Baso # Seg Neutrophils % Seg Neuts % (Manual) Lymphocytes % (Manual) Monocytes % (Manual) Seg Neutrophils # Seg Neutrophils # Man Lymphocytes # (Manual) Monocytes # (Manual) Eosinophils # (Manual) Basophils # (Manual) PT INR APTT ABG pH ABG pO2 ABG HCO3 ABG O2 Saturation ABG Base Excess ABG Hemoglobin Oxyhemoglobin Sodium Potassium Chloride Carbon Dioxide BUN Creatinine Glucose POC Glucose 130 H 118 H 135 H Lactic Acid Calcium Ionized Calcium Phosphorus Magnesium Total Bilirubin AST ALT Alkaline Phosphatase Ammonia Total Creatine Kinase CK-MB (CK-2) CK-MB (CK-2) Rel Index Total Protein Albumin Urine WBC (Auto) Vancomycin Trough Salicylates Acetaminophen Plasma/Serum Alcohol Crossmatch 12/20/19 12/20/19 12/20/19 05:46 12:31 18:07 WBC RBC Hgb Hct MCH RDW Plt Count Lymph % (Auto) [place] % (Auto) [place] # Baso # Seg Neutrophils % Seg Neuts % (Manual) Lymphocytes % (Manual) Monocytes % (Manual) Seg Neutrophils # Seg Neutrophils # Man Lymphocytes # (Manual) Monocytes # (Manual) Eosinophils # (Manual) Basophils # (Manual) PT INR APTT ABG pH ABG pO2 ABG HCO3 ABG O2 Saturation ABG Base Excess ABG Hemoglobin Oxyhemoglobin Sodium Potassium Chloride Carbon Dioxide BUN Creatinine Glucose POC Glucose 131 H 128 H 134 H Lactic Acid Calcium Ionized Calcium Phosphorus Magnesium Total Bilirubin AST ALT Alkaline Phosphatase Ammonia Total Creatine Kinase CK-MB (CK-2) CK-MB (CK-2) Rel Index Total Protein Albumin Urine WBC (Auto) Vancomycin Trough Salicylates Acetaminophen Plasma/Serum Alcohol Crossmatch 12/21/19 12/21/19 12/21/19 03:28 03:28 07:21 WBC 29.4 H RBC 2.30 L Hgb 6.8 L Hct 20.2 L MCH RDW 20.2 H Plt Count 746 H Lymph % (Auto) [place] % (Auto) [place] # Baso # Seg Neutrophils % Seg Neuts % (Manual) 85.0 H Lymphocytes % (Manual) 8.0 L Monocytes % (Manual) Seg Neutrophils # Seg Neutrophils # Man 25.0 H Lymphocytes # (Manual) Monocytes # (Manual) 1.5 H Eosinophils # (Manual) 0.6 H Basophils # (Manual) PT INR APTT ABG pH ABG pO2 ABG HCO3 ABG O2 Saturation ABG Base Excess ABG Hemoglobin Oxyhemoglobin Sodium Potassium Chloride Carbon Dioxide 17 L BUN 57 H Creatinine 1.4 H D Glucose POC Glucose 124 H Lactic Acid Calcium Ionized Calcium Phosphorus Magnesium Total Bilirubin AST ALT Alkaline Phosphatase Ammonia Total Creatine Kinase CK-MB (CK-2) CK-MB (CK-2) Rel Index Total Protein Albumin Urine WBC (Auto) Vancomycin Trough Salicylates Acetaminophen Plasma/Serum Alcohol Crossmatch 12/21/19 12/21/19 12/21/19 08:56 12:06 14:53 WBC RBC Hgb 7.2 L Hct 22.9 L MCH RDW Plt Count Lymph % (Auto) [place] % (Auto) [place] # Baso # Seg Neutrophils % Seg Neuts % (Manual) Lymphocytes % (Manual) Monocytes % (Manual) Seg Neutrophils # Seg Neutrophils # Man Lymphocytes # (Manual) Monocytes # (Manual) Eosinophils # (Manual) Basophils # (Manual) PT INR APTT ABG pH ABG pO2 ABG HCO3 ABG O2 Saturation ABG Base Excess ABG Hemoglobin Oxyhemoglobin Sodium Potassium Chloride Carbon Dioxide BUN Creatinine Glucose POC Glucose 116 H Lactic Acid Calcium Ionized Calcium Phosphorus Magnesium Total Bilirubin AST ALT Alkaline Phosphatase Ammonia Total Creatine Kinase CK-MB (CK-2) CK-MB (CK-2) Rel Index Total Protein Albumin Urine WBC (Auto) Vancomycin Trough 33.8 H Salicylates Acetaminophen Plasma/Serum Alcohol Crossmatch 12/21/19 12/21/19 12/21/19 14:54 17:27 23:49 WBC RBC Hgb Hct MCH RDW Plt Count Lymph % (Auto) [place] % (Auto) [place] # Baso # Seg Neutrophils % Seg Neuts % (Manual) Lymphocytes % (Manual) Monocytes % (Manual) Seg Neutrophils # Seg Neutrophils # Man Lymphocytes # (Manual) Monocytes # (Manual) Eosinophils # (Manual) Basophils # (Manual) PT INR APTT ABG pH ABG pO2 ABG HCO3 ABG O2 Saturation ABG Base Excess ABG Hemoglobin Oxyhemoglobin Sodium Potassium Chloride Carbon Dioxide BUN Creatinine Glucose POC Glucose 145 H 127 H Lactic Acid Calcium Ionized Calcium Phosphorus Magnesium Total Bilirubin AST ALT Alkaline Phosphatase Ammonia Total Creatine Kinase CK-MB (CK-2) CK-MB (CK-2) Rel Index Total Protein Albumin Urine WBC (Auto) Vancomycin Trough Salicylates Acetaminophen Plasma/Serum Alcohol Crossmatch See Detail 12/22/19 12/22/19 12/22/19 04:43 05:56 08:40 WBC RBC Hgb Hct MCH RDW Plt Count Lymph % (Auto) [place] % (Auto) [place] # Baso # Seg Neutrophils % Seg Neuts % (Manual) Lymphocytes % (Manual) Monocytes % (Manual) Seg Neutrophils # Seg Neutrophils # Man Lymphocytes # (Manual) Monocytes # (Manual) Eosinophils # (Manual) Basophils # (Manual) PT INR APTT ABG pH ABG pO2 75.6 L ABG HCO3 ABG O2 Saturation ABG Base Excess -2.6 L ABG Hemoglobin 6.8 L Oxyhemoglobin 94.6 L Sodium Potassium Chloride Carbon Dioxide 17 L BUN 60 H Creatinine 1.4 H Glucose 126 H POC Glucose 153 H Lactic Acid Calcium Ionized Calcium Phosphorus Magnesium Total Bilirubin AST ALT Alkaline Phosphatase Ammonia Total Creatine Kinase CK-MB (CK-2) CK-MB (CK-2) Rel Index Total Protein Albumin Urine WBC (Auto) Vancomycin Trough Salicylates Acetaminophen Plasma/Serum Alcohol Crossmatch 12/22/19 12/22/19 12/23/19 12:07 17:49 04:30 WBC 22.4 H RBC 2.68 L Hgb 7.6 L Hct 22.9 L MCH RDW 19.9 H Plt Count 998 H Lymph % (Auto) [place] % (Auto) [place] # Baso # Seg Neutrophils % Seg Neuts % (Manual) 88.0 H Lymphocytes % (Manual) 2.0 L Monocytes % (Manual) 9.0 H Seg Neutrophils # Seg Neutrophils # Man 19.7 H Lymphocytes # (Manual) 0.4 L Monocytes # (Manual) 2.0 H Eosinophils # (Manual) Basophils # (Manual) PT INR APTT ABG pH ABG pO2 ABG HCO3 ABG O2 Saturation ABG Base Excess ABG Hemoglobin Oxyhemoglobin Sodium Potassium Chloride Carbon Dioxide BUN Creatinine Glucose POC Glucose 140 H 116 H Lactic Acid Calcium Ionized Calcium Phosphorus Magnesium Total Bilirubin AST ALT Alkaline Phosphatase Ammonia Total Creatine Kinase CK-MB (CK-2) CK-MB (CK-2) Rel Index Total Protein Albumin Urine WBC (Auto) Vancomycin Trough Salicylates Acetaminophen Plasma/Serum Alcohol Crossmatch 12/23/19 12/23/19 12/23/19 04:30 12:00 18:06 WBC RBC Hgb Hct MCH RDW Plt Count Lymph % (Auto) [place] % (Auto) [place] # Baso # Seg Neutrophils % Seg Neuts % (Manual) Lymphocytes % (Manual) Monocytes % (Manual) Seg Neutrophils # Seg Neutrophils # Man Lymphocytes # (Manual) Monocytes # (Manual) Eosinophils # (Manual) Basophils # (Manual) PT INR APTT ABG pH ABG pO2 ABG HCO3 ABG O2 Saturation ABG Base Excess ABG Hemoglobin Oxyhemoglobin Sodium Potassium 5.2 H Chloride Carbon Dioxide 21 L BUN 69 H Creatinine 1.5 H Glucose 117 H POC Glucose 128 H 138 H Lactic Acid Calcium Ionized Calcium Phosphorus Magnesium Total Bilirubin AST ALT Alkaline Phosphatase Ammonia Total Creatine Kinase CK-MB (CK-2) CK-MB (CK-2) Rel Index Total Protein Albumin Urine WBC (Auto) Vancomycin Trough Salicylates Acetaminophen Plasma/Serum Alcohol Crossmatch 12/23/19 12/24/19 12/24/19 23:46 04:31 05:08 WBC RBC Hgb Hct MCH RDW Plt Count Lymph % (Auto) [place] % (Auto) [place] # Baso # Seg Neutrophils % Seg Neuts % (Manual) Lymphocytes % (Manual) Monocytes % (Manual) Seg Neutrophils # Seg Neutrophils # Man Lymphocytes # (Manual) Monocytes # (Manual) Eosinophils # (Manual) Basophils # (Manual) PT INR APTT ABG pH ABG pO2 ABG HCO3 ABG O2 Saturation ABG Base Excess ABG Hemoglobin Oxyhemoglobin Sodium Potassium 5.3 H Chloride 107.6 H Carbon Dioxide 20 L BUN 72 H Creatinine 1.6 H Glucose 120 H POC Glucose 120 H 140 H Lactic Acid Calcium Ionized Calcium Phosphorus Magnesium Total Bilirubin AST ALT Alkaline Phosphatase Ammonia Total Creatine Kinase CK-MB (CK-2) CK-MB (CK-2) Rel Index Total Protein Albumin Urine WBC (Auto) Vancomycin Trough Salicylates Acetaminophen Plasma/Serum Alcohol Crossmatch 12/24/19 12/24/19 12/25/19 11:58 17:49 03:47 WBC 36.2 H RBC 2.92 L Hgb 8.4 L Hct 26.1 L MCH RDW 20.2 H Plt Count 942 H Lymph % (Auto) [place] % (Auto) [place] # Baso # Seg Neutrophils % Seg Neuts % (Manual) 97.5 H Lymphocytes % (Manual) 1.0 L Monocytes % (Manual) Seg Neutrophils # Seg Neutrophils # Man 35.3 H Lymphocytes # (Manual) 0.4 L Monocytes # (Manual) Eosinophils # (Manual) Basophils # (Manual) PT INR APTT ABG pH ABG pO2 ABG HCO3 ABG O2 Saturation ABG Base Excess ABG Hemoglobin Oxyhemoglobin Sodium Potassium Chloride Carbon Dioxide BUN Creatinine Glucose POC Glucose 146 H 131 H Lactic Acid Calcium Ionized Calcium Phosphorus Magnesium Total Bilirubin AST ALT Alkaline Phosphatase Ammonia Total Creatine Kinase CK-MB (CK-2) CK-MB (CK-2) Rel Index Total Protein Albumin Urine WBC (Auto) Vancomycin Trough Salicylates Acetaminophen Plasma/Serum Alcohol Crossmatch 12/25/19 12/25/19 12/25/19 03:47 05:30 12:23 WBC RBC Hgb Hct MCH RDW Plt Count Lymph % (Auto) [place] % (Auto) [place] # Baso # Seg Neutrophils % Seg Neuts % (Manual) Lymphocytes % (Manual) Monocytes % (Manual) Seg Neutrophils # Seg Neutrophils # Man Lymphocytes # (Manual) Monocytes # (Manual) Eosinophils # (Manual) Basophils # (Manual) PT INR APTT ABG pH ABG pO2 ABG HCO3 ABG O2 Saturation ABG Base Excess ABG Hemoglobin Oxyhemoglobin Sodium Potassium Chloride Carbon Dioxide 15 L BUN 70 H Creatinine 1.7 H Glucose 153 H POC Glucose 169 H 135 H Lactic Acid Calcium Ionized Calcium Phosphorus Magnesium Total Bilirubin AST ALT Alkaline Phosphatase Ammonia Total Creatine Kinase CK-MB (CK-2) CK-MB (CK-2) Rel Index Total Protein Albumin Urine WBC (Auto) Vancomycin Trough Salicylates Acetaminophen Plasma/Serum Alcohol Crossmatch 12/25/19 12/25/19 12/26/19 17:37 23:29 09:47 WBC 22.1 H RBC 2.83 L Hgb 7.9 L Hct 25.5 L MCH RDW 20.0 H Plt Count 894 H Lymph % (Auto) [place] % (Auto) [place] # Baso # Seg Neutrophils % Seg Neuts % (Manual) Lymphocytes % (Manual) Monocytes % (Manual) Seg Neutrophils # Seg Neutrophils # Man Lymphocytes # (Manual) Monocytes # (Manual) Eosinophils # (Manual) Basophils # (Manual) PT INR APTT ABG pH ABG pO2 ABG HCO3 ABG O2 Saturation ABG Base Excess ABG Hemoglobin Oxyhemoglobin Sodium Potassium Chloride Carbon Dioxide BUN Creatinine Glucose POC Glucose 120 H 140 H Lactic Acid Calcium Ionized Calcium Phosphorus Magnesium Total Bilirubin AST ALT Alkaline Phosphatase Ammonia Total Creatine Kinase CK-MB (CK-2) CK-MB (CK-2) Rel Index Total Protein Albumin Urine WBC (Auto) Vancomycin Trough Salicylates Acetaminophen Plasma/Serum Alcohol Crossmatch 12/26/19 12/26/19 12/26/19 09:47 11:46 17:52 WBC RBC Hgb Hct MCH RDW Plt Count Lymph % (Auto) [place] % (Auto) [place] # Baso # Seg Neutrophils % Seg Neuts % (Manual) Lymphocytes % (Manual) Monocytes % (Manual) Seg Neutrophils # Seg Neutrophils # Man Lymphocytes # (Manual) Monocytes # (Manual) Eosinophils # (Manual) Basophils # (Manual) PT INR APTT ABG pH ABG pO2 ABG HCO3 ABG O2 Saturation ABG Base Excess ABG Hemoglobin Oxyhemoglobin Sodium Potassium Chloride Carbon Dioxide 18 L BUN 65 H Creatinine 1.4 H Glucose 132 H POC Glucose 110 H 145 H Lactic Acid Calcium Ionized Calcium Phosphorus Magnesium Total Bilirubin AST ALT Alkaline Phosphatase Ammonia Total Creatine Kinase CK-MB (CK-2) CK-MB (CK-2) Rel Index Total Protein Albumin Urine WBC (Auto) Vancomycin Trough Salicylates Acetaminophen Plasma/Serum Alcohol Crossmatch 12/27/19 12/27/19 12/27/19 00:01 03:42 03:42 WBC 18.0 H RBC 2.86 L Hgb 8.0 L Hct 25.2 L MCH RDW 19.2 H Plt Count 873 H Lymph % (Auto) 8.4 L [place] % (Auto) 7.5 H [place] # 1.4 H Baso # 0.2 H Seg Neutrophils % 82.2 H Seg Neuts % (Manual) Lymphocytes % (Manual) Monocytes % (Manual) Seg Neutrophils # 14.8 H Seg Neutrophils # Man Lymphocytes # (Manual) Monocytes # (Manual) Eosinophils # (Manual) Basophils # (Manual) PT INR APTT ABG pH ABG pO2 ABG HCO3 ABG O2 Saturation ABG Base Excess ABG Hemoglobin Oxyhemoglobin Sodium Potassium Chloride Carbon Dioxide BUN 73 H Creatinine 1.4 H Glucose 119 H POC Glucose 124 H Lactic Acid Calcium Ionized Calcium Phosphorus Magnesium Total Bilirubin AST ALT Alkaline Phosphatase Ammonia Total Creatine Kinase CK-MB (CK-2) CK-MB (CK-2) Rel Index Total Protein Albumin Urine WBC (Auto) Vancomycin Trough Salicylates Acetaminophen Plasma/Serum Alcohol Crossmatch 12/27/19 12/27/19 12/27/19 05:45 11:45 17:29 WBC RBC Hgb Hct MCH RDW Plt Count Lymph % (Auto) [place] % (Auto) [place] # Baso # Seg Neutrophils % Seg Neuts % (Manual) Lymphocytes % (Manual) Monocytes % (Manual) Seg Neutrophils # Seg Neutrophils # Man Lymphocytes # (Manual) Monocytes # (Manual) Eosinophils # (Manual) Basophils # (Manual) PT INR APTT ABG pH ABG pO2 ABG HCO3 ABG O2 Saturation ABG Base Excess ABG Hemoglobin Oxyhemoglobin Sodium Potassium Chloride Carbon Dioxide BUN Creatinine Glucose POC Glucose 131 H 123 H 134 H Lactic Acid Calcium Ionized Calcium Phosphorus Magnesium Total Bilirubin AST ALT Alkaline Phosphatase Ammonia Total Creatine Kinase CK-MB (CK-2) CK-MB (CK-2) Rel Index Total Protein Albumin Urine WBC (Auto) Vancomycin Trough Salicylates Acetaminophen Plasma/Serum Alcohol Crossmatch 12/28/19 12/28/19 12/28/19 00:12 05:14 11:53 WBC RBC Hgb Hct MCH RDW Plt Count Lymph % (Auto) [place] % (Auto) [place] # Baso # Seg Neutrophils % Seg Neuts % (Manual) Lymphocytes % (Manual) Monocytes % (Manual) Seg Neutrophils # Seg Neutrophils # Man Lymphocytes # (Manual) Monocytes # (Manual) Eosinophils # (Manual) Basophils # (Manual) PT INR APTT ABG pH ABG pO2 ABG HCO3 ABG O2 Saturation ABG Base Excess ABG Hemoglobin Oxyhemoglobin Sodium Potassium Chloride Carbon Dioxide BUN Creatinine Glucose POC Glucose 138 H 130 H 146 H Lactic Acid Calcium Ionized Calcium Phosphorus Magnesium Total Bilirubin AST ALT Alkaline Phosphatase Ammonia Total Creatine Kinase CK-MB (CK-2) CK-MB (CK-2) Rel Index Total Protein Albumin Urine WBC (Auto) Vancomycin Trough Salicylates Acetaminophen Plasma/Serum Alcohol Crossmatch 12/28/19 12/29/19 12/29/19 17:39 00:01 18:11 WBC RBC Hgb Hct MCH RDW Plt Count Lymph % (Auto) [place] % (Auto) [place] # Baso # Seg Neutrophils % Seg Neuts % (Manual) Lymphocytes % (Manual) Monocytes % (Manual) Seg Neutrophils # Seg Neutrophils # Man Lymphocytes # (Manual) Monocytes # (Manual) Eosinophils # (Manual) Basophils # (Manual) PT INR APTT ABG pH ABG pO2 ABG HCO3 ABG O2 Saturation ABG Base Excess ABG Hemoglobin Oxyhemoglobin Sodium Potassium Chloride Carbon Dioxide BUN Creatinine Glucose POC Glucose 117 H 139 H 130 H Lactic Acid Calcium Ionized Calcium Phosphorus Magnesium Total Bilirubin AST ALT Alkaline Phosphatase Ammonia Total Creatine Kinase CK-MB (CK-2) CK-MB (CK-2) Rel Index Total Protein Albumin Urine WBC (Auto) Vancomycin Trough Salicylates Acetaminophen Plasma/Serum Alcohol Crossmatch 12/29/19 12/30/19 12/30/19 23:09 00:02 01:06 WBC 16.7 H RBC 2.91 L Hgb 8.2 L Hct 25.4 L MCH RDW 18.7 H Plt Count 708 H Lymph % (Auto) 9.4 L [place] % (Auto) [place] # 0.9 H Baso # Seg Neutrophils % 83.5 H Seg Neuts % (Manual) Lymphocytes % (Manual) Monocytes % (Manual) Seg Neutrophils # 14.0 H Seg Neutrophils # Man Lymphocytes # (Manual) Monocytes # (Manual) Eosinophils # (Manual) Basophils # (Manual) PT INR APTT ABG pH ABG pO2 ABG HCO3 ABG O2 Saturation ABG Base Excess ABG Hemoglobin Oxyhemoglobin Sodium Potassium Chloride Carbon Dioxide BUN Creatinine Glucose POC Glucose 120 H 114 H Lactic Acid Calcium Ionized Calcium Phosphorus Magnesium Total Bilirubin AST ALT Alkaline Phosphatase Ammonia Total Creatine Kinase CK-MB (CK-2) CK-MB (CK-2) Rel Index Total Protein Albumin Urine WBC (Auto) Vancomycin Trough Salicylates Acetaminophen Plasma/Serum Alcohol Crossmatch 12/30/19 12/30/19 12/30/19 01:06 04:23 05:18 WBC RBC Hgb Hct MCH RDW Plt Count Lymph % (Auto) [place] % (Auto) [place] # Baso # Seg Neutrophils % Seg Neuts % (Manual) Lymphocytes % (Manual) Monocytes % (Manual) Seg Neutrophils # Seg Neutrophils # Man Lymphocytes # (Manual) Monocytes # (Manual) Eosinophils # (Manual) Basophils # (Manual) PT INR APTT ABG pH ABG pO2 ABG HCO3 ABG O2 Saturation ABG Base Excess ABG Hemoglobin 8.3 L Oxyhemoglobin Sodium Potassium Chloride Carbon Dioxide BUN 70 H Creatinine Glucose 122 H POC Glucose 130 H Lactic Acid Calcium Ionized Calcium Phosphorus Magnesium Total Bilirubin AST ALT Alkaline Phosphatase Ammonia Total Creatine Kinase CK-MB (CK-2) CK-MB (CK-2) Rel Index Total Protein Albumin Urine WBC (Auto) Vancomycin Trough Salicylates Acetaminophen Plasma/Serum Alcohol Crossmatch 12/30/19 12/30/19 12/30/19 05:40 12:17 17:43 WBC RBC Hgb Hct MCH RDW Plt Count Lymph % (Auto) [place] % (Auto) [place] # Baso # Seg Neutrophils % Seg Neuts % (Manual) Lymphocytes % (Manual) Monocytes % (Manual) Seg Neutrophils # Seg Neutrophils # Man Lymphocytes # (Manual) Monocytes # (Manual) Eosinophils # (Manual) Basophils # (Manual) PT INR APTT ABG pH ABG pO2 ABG HCO3 ABG O2 Saturation ABG Base Excess ABG Hemoglobin Oxyhemoglobin Sodium Potassium Chloride Carbon Dioxide BUN Creatinine Glucose POC Glucose 135 H 132 H 118 H Lactic Acid Calcium Ionized Calcium Phosphorus Magnesium Total Bilirubin AST ALT Alkaline Phosphatase Ammonia Total Creatine Kinase CK-MB (CK-2) CK-MB (CK-2) Rel Index Total Protein Albumin Urine WBC (Auto) Vancomycin Trough Salicylates Acetaminophen Plasma/Serum Alcohol Crossmatch 12/30/19 12/31/19 12/31/19 23:29 05:19 17:50 WBC RBC Hgb Hct MCH RDW Plt Count Lymph % (Auto) [place] % (Auto) [place] # Baso # Seg Neutrophils % Seg Neuts % (Manual) Lymphocytes % (Manual) Monocytes % (Manual) Seg Neutrophils # Seg Neutrophils # Man Lymphocytes # (Manual) Monocytes # (Manual) Eosinophils # (Manual) Basophils # (Manual) PT INR APTT ABG pH ABG pO2 ABG HCO3 ABG O2 Saturation ABG Base Excess ABG Hemoglobin Oxyhemoglobin Sodium Potassium Chloride Carbon Dioxide BUN Creatinine Glucose POC Glucose 114 H 109 H 116 H Lactic Acid Calcium Ionized Calcium Phosphorus Magnesium Total Bilirubin AST ALT Alkaline Phosphatase Ammonia Total Creatine Kinase CK-MB (CK-2) CK-MB (CK-2) Rel Index Total Protein Albumin Urine WBC (Auto) Vancomycin Trough Salicylates Acetaminophen Plasma/Serum Alcohol Crossmatch 01/01/20 01/01/20 01/01/20 00:10 05:19 12:02 WBC RBC Hgb Hct MCH RDW Plt Count Lymph % (Auto) [place] % (Auto) [place] # Baso # Seg Neutrophils % Seg Neuts % (Manual) Lymphocytes % (Manual) Monocytes % (Manual) Seg Neutrophils # Seg Neutrophils # Man Lymphocytes # (Manual) Monocytes # (Manual) Eosinophils # (Manual) Basophils # (Manual) PT INR APTT ABG pH ABG pO2 ABG HCO3 ABG O2 Saturation ABG Base Excess ABG Hemoglobin Oxyhemoglobin Sodium Potassium Chloride Carbon Dioxide BUN Creatinine Glucose POC Glucose 131 H 122 H 136 H Lactic Acid Calcium Ionized Calcium Phosphorus Magnesium Total Bilirubin AST ALT Alkaline Phosphatase Ammonia Total Creatine Kinase CK-MB (CK-2) CK-MB (CK-2) Rel Index Total Protein Albumin Urine WBC (Auto) Vancomycin Trough Salicylates Acetaminophen Plasma/Serum Alcohol Crossmatch 01/02/20 01/02/20 01/02/20 00:24 05:36 11:41 WBC RBC Hgb Hct MCH RDW Plt Count Lymph % (Auto) [place] % (Auto) [place] # Baso # Seg Neutrophils % Seg Neuts % (Manual) Lymphocytes % (Manual) Monocytes % (Manual) Seg Neutrophils # Seg Neutrophils # Man Lymphocytes # (Manual) Monocytes # (Manual) Eosinophils # (Manual) Basophils # (Manual) PT INR APTT ABG pH ABG pO2 ABG HCO3 ABG O2 Saturation ABG Base Excess ABG Hemoglobin Oxyhemoglobin Sodium Potassium Chloride Carbon Dioxide BUN Creatinine Glucose POC Glucose 119 H 109 H 125 H Lactic Acid Calcium Ionized Calcium Phosphorus Magnesium Total Bilirubin AST ALT Alkaline Phosphatase Ammonia Total Creatine Kinase CK-MB (CK-2) CK-MB (CK-2) Rel Index Total Protein Albumin Urine WBC (Auto) Vancomycin Trough Salicylates Acetaminophen Plasma/Serum Alcohol Crossmatch 01/02/20 01/03/20 01/03/20 17:49 05:29 12:13 WBC RBC Hgb Hct MCH RDW Plt Count Lymph % (Auto) [place] % (Auto) [place] # Baso # Seg Neutrophils % Seg Neuts % (Manual) Lymphocytes % (Manual) Monocytes % (Manual) Seg Neutrophils # Seg Neutrophils # Man Lymphocytes # (Manual) Monocytes # (Manual) Eosinophils # (Manual) Basophils # (Manual) PT INR APTT ABG pH ABG pO2 ABG HCO3 ABG O2 Saturation ABG Base Excess ABG Hemoglobin Oxyhemoglobin Sodium Potassium Chloride Carbon Dioxide BUN Creatinine Glucose POC Glucose 130 H 132 H 113 H Lactic Acid Calcium Ionized Calcium Phosphorus Magnesium Total Bilirubin AST ALT Alkaline Phosphatase Ammonia Total Creatine Kinase CK-MB (CK-2) CK-MB (CK-2) Rel Index Total Protein Albumin Urine WBC (Auto) Vancomycin Trough Salicylates Acetaminophen Plasma/Serum Alcohol Crossmatch 01/03/20 01/04/20 01/04/20 17:32 00:19 05:26 WBC RBC Hgb Hct MCH RDW Plt Count Lymph % (Auto) [place] % (Auto) [place] # Baso # Seg Neutrophils % Seg Neuts % (Manual) Lymphocytes % (Manual) Monocytes % (Manual) Seg Neutrophils # Seg Neutrophils # Man Lymphocytes # (Manual) Monocytes # (Manual) Eosinophils # (Manual) Basophils # (Manual) PT INR APTT ABG pH ABG pO2 ABG HCO3 ABG O2 Saturation ABG Base Excess ABG Hemoglobin Oxyhemoglobin Sodium Potassium Chloride Carbon Dioxide BUN Creatinine Glucose POC Glucose 127 H 141 H 129 H Lactic Acid Calcium Ionized Calcium Phosphorus Magnesium Total Bilirubin AST ALT Alkaline Phosphatase Ammonia Total Creatine Kinase CK-MB (CK-2) CK-MB (CK-2) Rel Index Total Protein Albumin Urine WBC (Auto) Vancomycin Trough Salicylates Acetaminophen Plasma/Serum Alcohol Crossmatch 01/04/20 01/04/20 01/05/20 11:39 17:29 05:22 WBC RBC Hgb Hct MCH RDW Plt Count Lymph % (Auto) [place] % (Auto) [place] # Baso # Seg Neutrophils % Seg Neuts % (Manual) Lymphocytes % (Manual) Monocytes % (Manual) Seg Neutrophils # Seg Neutrophils # Man Lymphocytes # (Manual) Monocytes # (Manual) Eosinophils # (Manual) Basophils # (Manual) PT INR APTT ABG pH ABG pO2 ABG HCO3 ABG O2 Saturation ABG Base Excess ABG Hemoglobin Oxyhemoglobin Sodium Potassium Chloride Carbon Dioxide BUN Creatinine Glucose POC Glucose 167 H 132 H 121 H Lactic Acid Calcium Ionized Calcium Phosphorus Magnesium Total Bilirubin AST ALT Alkaline Phosphatase Ammonia Total Creatine Kinase CK-MB (CK-2) CK-MB (CK-2) Rel Index Total Protein Albumin Urine WBC (Auto) Vancomycin Trough Salicylates Acetaminophen Plasma/Serum Alcohol Crossmatch 01/05/20 01/05/20 01/05/20 12:25 17:40 18:06 WBC RBC Hgb Hct MCH RDW Plt Count Lymph % (Auto) [place] % (Auto) [place] # Baso # Seg Neutrophils % Seg Neuts % (Manual) Lymphocytes % (Manual) Monocytes % (Manual) Seg Neutrophils # Seg Neutrophils # Man Lymphocytes # (Manual) Monocytes # (Manual) Eosinophils # (Manual) Basophils # (Manual) PT INR APTT ABG pH 7.472 H ABG pO2 99.2 H ABG HCO3 ABG O2 Saturation ABG Base Excess ABG Hemoglobin 7.8 L Oxyhemoglobin Sodium Potassium Chloride Carbon Dioxide BUN Creatinine Glucose POC Glucose 106 H 110 H Lactic Acid Calcium Ionized Calcium Phosphorus Magnesium Total Bilirubin AST ALT Alkaline Phosphatase Ammonia Total Creatine Kinase CK-MB (CK-2) CK-MB (CK-2) Rel Index Total Protein Albumin Urine WBC (Auto) Vancomycin Trough Salicylates Acetaminophen Plasma/Serum Alcohol Crossmatch 01/06/20 01/06/20 01/06/20 00:11 05:16 11:30 WBC RBC Hgb Hct MCH RDW Plt Count Lymph % (Auto) [place] % (Auto) [place] # Baso # Seg Neutrophils % Seg Neuts % (Manual) Lymphocytes % (Manual) Monocytes % (Manual) Seg Neutrophils # Seg Neutrophils # Man Lymphocytes # (Manual) Monocytes # (Manual) Eosinophils # (Manual) Basophils # (Manual) PT INR APTT ABG pH ABG pO2 ABG HCO3 ABG O2 Saturation ABG Base Excess ABG Hemoglobin Oxyhemoglobin Sodium Potassium Chloride Carbon Dioxide BUN Creatinine Glucose POC Glucose 108 H 124 H 125 H Lactic Acid Calcium Ionized Calcium Phosphorus Magnesium Total Bilirubin AST ALT Alkaline Phosphatase Ammonia Total Creatine Kinase CK-MB (CK-2) CK-MB (CK-2) Rel Index Total Protein Albumin Urine WBC (Auto) Vancomycin Trough Salicylates Acetaminophen Plasma/Serum Alcohol Crossmatch 01/06/20 01/06/20 01/07/20 17:53 23:51 04:12 WBC 16.5 H RBC 3.29 L Hgb 9.3 L Hct 28.1 L MCH RDW 18.2 H Plt Count 526 H Lymph % (Auto) 8.4 L [place] % (Auto) [place] # 1.0 H Baso # Seg Neutrophils % 84.4 H Seg Neuts % (Manual) Lymphocytes % (Manual) Monocytes % (Manual) Seg Neutrophils # 13.9 H Seg Neutrophils # Man Lymphocytes # (Manual) Monocytes # (Manual) Eosinophils # (Manual) Basophils # (Manual) PT INR APTT ABG pH ABG pO2 ABG HCO3 ABG O2 Saturation ABG Base Excess ABG Hemoglobin Oxyhemoglobin Sodium Potassium Chloride Carbon Dioxide BUN Creatinine Glucose POC Glucose 166 H 128 H Lactic Acid Calcium Ionized Calcium Phosphorus Magnesium Total Bilirubin AST ALT Alkaline Phosphatase Ammonia Total Creatine Kinase CK-MB (CK-2) CK-MB (CK-2) Rel Index Total Protein Albumin Urine WBC (Auto) Vancomycin Trough Salicylates Acetaminophen Plasma/Serum Alcohol Crossmatch 01/07/20 01/07/20 01/07/20 04:12 04:45 11:51 WBC RBC Hgb Hct MCH RDW Plt Count Lymph % (Auto) [place] % (Auto) [place] # Baso # Seg Neutrophils % Seg Neuts % (Manual) Lymphocytes % (Manual) Monocytes % (Manual) Seg Neutrophils # Seg Neutrophils # Man Lymphocytes # (Manual) Monocytes # (Manual) Eosinophils # (Manual) Basophils # (Manual) PT INR APTT ABG pH ABG pO2 ABG HCO3 ABG O2 Saturation ABG Base Excess ABG Hemoglobin Oxyhemoglobin Sodium 136 L Potassium Chloride Carbon Dioxide 21 L BUN 44 H Creatinine 0.6 L Glucose 124 H POC Glucose 134 H 138 H Lactic Acid Calcium Ionized Calcium Phosphorus Magnesium Total Bilirubin AST ALT Alkaline Phosphatase Ammonia Total Creatine Kinase CK-MB (CK-2) CK-MB (CK-2) Rel Index Total Protein Albumin Urine WBC (Auto) Vancomycin Trough Salicylates Acetaminophen Plasma/Serum Alcohol Crossmatch 01/07/20 01/08/20 01/08/20 17:36 00:33 05:29 WBC RBC Hgb Hct MCH RDW Plt Count Lymph % (Auto) [place] % (Auto) [place] # Baso # Seg Neutrophils % Seg Neuts % (Manual) Lymphocytes % (Manual) Monocytes % (Manual) Seg Neutrophils # Seg Neutrophils # Man Lymphocytes # (Manual) Monocytes # (Manual) Eosinophils # (Manual) Basophils # (Manual) PT INR APTT ABG pH ABG pO2 ABG HCO3 ABG O2 Saturation ABG Base Excess ABG Hemoglobin Oxyhemoglobin Sodium Potassium Chloride Carbon Dioxide BUN Creatinine Glucose POC Glucose 128 H 119 H 124 H Lactic Acid Calcium Ionized Calcium Phosphorus Magnesium Total Bilirubin AST ALT Alkaline Phosphatase Ammonia Total Creatine Kinase CK-MB (CK-2) CK-MB (CK-2) Rel Index Total Protein Albumin Urine WBC (Auto) Vancomycin Trough Salicylates Acetaminophen Plasma/Serum Alcohol Crossmatch 01/08/20 01/08/20 01/08/20 12:51 20:25 23:22 WBC RBC Hgb Hct MCH RDW Plt Count Lymph % (Auto) [place] % (Auto) [place] # Baso # Seg Neutrophils % Seg Neuts % (Manual) Lymphocytes % (Manual) Monocytes % (Manual) Seg Neutrophils # Seg Neutrophils # Man Lymphocytes # (Manual) Monocytes # (Manual) Eosinophils # (Manual) Basophils # (Manual) PT INR APTT ABG pH ABG pO2 132.2 H ABG HCO3 ABG O2 Saturation ABG Base Excess ABG Hemoglobin Oxyhemoglobin Sodium Potassium Chloride Carbon Dioxide BUN Creatinine Glucose POC Glucose 128 H 127 H Lactic Acid Calcium Ionized Calcium Phosphorus Magnesium Total Bilirubin AST ALT Alkaline Phosphatase Ammonia Total Creatine Kinase CK-MB (CK-2) CK-MB (CK-2) Rel Index Total Protein Albumin Urine WBC (Auto) Vancomycin Trough Salicylates Acetaminophen Plasma/Serum Alcohol Crossmatch 01/09/20 01/09/20 01/09/20 05:48 08:51 11:29 WBC RBC Hgb Hct MCH RDW Plt Count Lymph % (Auto) [place] % (Auto) [place] # Baso # Seg Neutrophils % Seg Neuts % (Manual) Lymphocytes % (Manual) Monocytes % (Manual) Seg Neutrophils # Seg Neutrophils # Man Lymphocytes # (Manual) Monocytes # (Manual) Eosinophils # (Manual) Basophils # (Manual) PT INR APTT ABG pH ABG pO2 94.3 H ABG HCO3 ABG O2 Saturation ABG Base Excess ABG Hemoglobin 9.5 L Oxyhemoglobin Sodium Potassium Chloride Carbon Dioxide BUN Creatinine Glucose POC Glucose 120 H 112 H Lactic Acid Calcium Ionized Calcium Phosphorus Magnesium Total Bilirubin AST ALT Alkaline Phosphatase Ammonia Total Creatine Kinase CK-MB (CK-2) CK-MB (CK-2) Rel Index Total Protein Albumin Urine WBC (Auto) Vancomycin Trough Salicylates Acetaminophen Plasma/Serum Alcohol Crossmatch 01/09/20 01/10/20 01/10/20 17:57 05:17 12:28 WBC RBC Hgb Hct MCH RDW Plt Count Lymph % (Auto) [place] % (Auto) [place] # Baso # Seg Neutrophils % Seg Neuts % (Manual) Lymphocytes % (Manual) Monocytes % (Manual) Seg Neutrophils # Seg Neutrophils # Man Lymphocytes # (Manual) Monocytes # (Manual) Eosinophils # (Manual) Basophils # (Manual) PT INR APTT ABG pH ABG pO2 ABG HCO3 ABG O2 Saturation ABG Base Excess ABG Hemoglobin Oxyhemoglobin Sodium Potassium Chloride Carbon Dioxide BUN Creatinine Glucose POC Glucose 122 H 115 H 116 H Lactic Acid Calcium Ionized Calcium Phosphorus Magnesium Total Bilirubin AST ALT Alkaline Phosphatase Ammonia Total Creatine Kinase CK-MB (CK-2) CK-MB (CK-2) Rel Index Total Protein Albumin Urine WBC (Auto) Vancomycin Trough Salicylates Acetaminophen Plasma/Serum Alcohol Crossmatch 01/10/20 01/10/20 01/11/20 18:25 23:47 06:05 WBC RBC Hgb Hct MCH RDW Plt Count Lymph % (Auto) [place] % (Auto) [place] # Baso # Seg Neutrophils % Seg Neuts % (Manual) Lymphocytes % (Manual) Monocytes % (Manual) Seg Neutrophils # Seg Neutrophils # Man Lymphocytes # (Manual) Monocytes # (Manual) Eosinophils # (Manual) Basophils # (Manual) PT INR APTT ABG pH ABG pO2 ABG HCO3 ABG O2 Saturation ABG Base Excess ABG Hemoglobin Oxyhemoglobin Sodium Potassium Chloride Carbon Dioxide BUN Creatinine Glucose POC Glucose 123 H 115 H 151 H Lactic Acid Calcium Ionized Calcium Phosphorus Magnesium Total Bilirubin AST ALT Alkaline Phosphatase Ammonia Total Creatine Kinase CK-MB (CK-2) CK-MB (CK-2) Rel Index Total Protein Albumin Urine WBC (Auto) Vancomycin Trough Salicylates Acetaminophen Plasma/Serum Alcohol Crossmatch 01/11/20 01/11/20 01/11/20 07:00 07:00 12:27 WBC 11.8 H RBC 3.40 L Hgb 9.4 L Hct 29.3 L MCH RDW 18.1 H Plt Count 549 H Lymph % (Auto) [place] % (Auto) 9.1 H [place] # 1.1 H Baso # Seg Neutrophils % 73.3 H Seg Neuts % (Manual) Lymphocytes % (Manual) Monocytes % (Manual) Seg Neutrophils # 8.7 H Seg Neutrophils # Man Lymphocytes # (Manual) Monocytes # (Manual) Eosinophils # (Manual) Basophils # (Manual) PT INR APTT ABG pH ABG pO2 ABG HCO3 ABG O2 Saturation ABG Base Excess ABG Hemoglobin Oxyhemoglobin Sodium 134 L Potassium Chloride 97.7 L Carbon Dioxide 21 L BUN 38 H Creatinine 0.5 L Glucose 168 H POC Glucose 117 H Lactic Acid Calcium 10.5 H Ionized Calcium Phosphorus Magnesium Total Bilirubin AST ALT Alkaline Phosphatase Ammonia Total Creatine Kinase CK-MB (CK-2) CK-MB (CK-2) Rel Index Total Protein Albumin Urine WBC (Auto) Vancomycin Trough Salicylates Acetaminophen Plasma/Serum Alcohol Crossmatch 01/11/20 01/12/20 01/12/20 18:19 00:53 05:24 WBC RBC Hgb Hct MCH RDW Plt Count Lymph % (Auto) [place] % (Auto) [place] # Baso # Seg Neutrophils % Seg Neuts % (Manual) Lymphocytes % (Manual) Monocytes % (Manual) Seg Neutrophils # Seg Neutrophils # Man Lymphocytes # (Manual) Monocytes # (Manual) Eosinophils # (Manual) Basophils # (Manual) PT INR APTT ABG pH ABG pO2 ABG HCO3 ABG O2 Saturation ABG Base Excess ABG Hemoglobin Oxyhemoglobin Sodium Potassium Chloride Carbon Dioxide BUN Creatinine Glucose POC Glucose 126 H 126 H 128 H Lactic Acid Calcium Ionized Calcium Phosphorus Magnesium Total Bilirubin AST ALT Alkaline Phosphatase Ammonia Total Creatine Kinase CK-MB (CK-2) CK-MB (CK-2) Rel Index Total Protein Albumin Urine WBC (Auto) Vancomycin Trough Salicylates Acetaminophen Plasma/Serum Alcohol Crossmatch 01/12/20 01/12/20 01/13/20 13:39 18:02 00:27 WBC RBC Hgb Hct MCH RDW Plt Count Lymph % (Auto) [place] % (Auto) [place] # Baso # Seg Neutrophils % Seg Neuts % (Manual) Lymphocytes % (Manual) Monocytes % (Manual) Seg Neutrophils # Seg Neutrophils # Man Lymphocytes # (Manual) Monocytes # (Manual) Eosinophils # (Manual) Basophils # (Manual) PT INR APTT ABG pH ABG pO2 ABG HCO3 ABG O2 Saturation ABG Base Excess ABG Hemoglobin Oxyhemoglobin Sodium Potassium Chloride Carbon Dioxide BUN Creatinine Glucose POC Glucose 146 H 125 H 131 H Lactic Acid Calcium Ionized Calcium Phosphorus Magnesium Total Bilirubin AST ALT Alkaline Phosphatase Ammonia Total Creatine Kinase CK-MB (CK-2) CK-MB (CK-2) Rel Index Total Protein Albumin Urine WBC (Auto) Vancomycin Trough Salicylates Acetaminophen Plasma/Serum Alcohol Crossmatch 01/13/20 01/13/20 01/13/20 05:44 11:54 17:18 WBC RBC Hgb Hct MCH RDW Plt Count Lymph % (Auto) [place] % (Auto) [place] # Baso # Seg Neutrophils % Seg Neuts % (Manual) Lymphocytes % (Manual) Monocytes % (Manual) Seg Neutrophils # Seg Neutrophils # Man Lymphocytes # (Manual) Monocytes # (Manual) Eosinophils # (Manual) Basophils # (Manual) PT INR APTT ABG pH ABG pO2 ABG HCO3 ABG O2 Saturation ABG Base Excess ABG Hemoglobin Oxyhemoglobin Sodium Potassium Chloride Carbon Dioxide BUN Creatinine Glucose POC Glucose 148 H 140 H 130 H Lactic Acid Calcium Ionized Calcium Phosphorus Magnesium Total Bilirubin AST ALT Alkaline Phosphatase Ammonia Total Creatine Kinase CK-MB (CK-2) CK-MB (CK-2) Rel Index Total Protein Albumin Urine WBC (Auto) Vancomycin Trough Salicylates Acetaminophen Plasma/Serum Alcohol Crossmatch 01/14/20 01/14/20 01/14/20 00:16 05:45 12:19 WBC RBC Hgb Hct MCH RDW Plt Count Lymph % (Auto) [place] % (Auto) [place] # Baso # Seg Neutrophils % Seg Neuts % (Manual) Lymphocytes % (Manual) Monocytes % (Manual) Seg Neutrophils # Seg Neutrophils # Man Lymphocytes # (Manual) Monocytes # (Manual) Eosinophils # (Manual) Basophils # (Manual) PT INR APTT ABG pH ABG pO2 ABG HCO3 ABG O2 Saturation ABG Base Excess ABG Hemoglobin Oxyhemoglobin Sodium Potassium Chloride Carbon Dioxide BUN Creatinine Glucose POC Glucose 125 H 146 H 147 H Lactic Acid Calcium Ionized Calcium Phosphorus Magnesium Total Bilirubin AST ALT Alkaline Phosphatase Ammonia Total Creatine Kinase CK-MB (CK-2) CK-MB (CK-2) Rel Index Total Protein Albumin Urine WBC (Auto) Vancomycin Trough Salicylates Acetaminophen Plasma/Serum Alcohol Crossmatch 01/14/20 01/14/20 01/15/20 18:10 23:54 05:14 WBC RBC Hgb Hct MCH RDW Plt Count Lymph % (Auto) [place] % (Auto) [place] # Baso # Seg Neutrophils % Seg Neuts % (Manual) Lymphocytes % (Manual) Monocytes % (Manual) Seg Neutrophils # Seg Neutrophils # Man Lymphocytes # (Manual) Monocytes # (Manual) Eosinophils # (Manual) Basophils # (Manual) PT INR APTT ABG pH ABG pO2 ABG HCO3 ABG O2 Saturation ABG Base Excess ABG Hemoglobin Oxyhemoglobin Sodium Potassium Chloride Carbon Dioxide BUN Creatinine Glucose POC Glucose 136 H 109 H 111 H Lactic Acid Calcium Ionized Calcium Phosphorus Magnesium Total Bilirubin AST ALT Alkaline Phosphatase Ammonia Total Creatine Kinase CK-MB (CK-2) CK-MB (CK-2) Rel Index Total Protein Albumin Urine WBC (Auto) Vancomycin Trough Salicylates Acetaminophen Plasma/Serum Alcohol Crossmatch 01/15/20 01/15/20 01/16/20 12:34 23:25 05:06 WBC RBC Hgb Hct MCH RDW Plt Count Lymph % (Auto) [place] % (Auto) [place] # Baso # Seg Neutrophils % Seg Neuts % (Manual) Lymphocytes % (Manual) Monocytes % (Manual) Seg Neutrophils # Seg Neutrophils # Man Lymphocytes # (Manual) Monocytes # (Manual) Eosinophils # (Manual) Basophils # (Manual) PT INR APTT ABG pH ABG pO2 ABG HCO3 ABG O2 Saturation ABG Base Excess ABG Hemoglobin Oxyhemoglobin Sodium Potassium Chloride Carbon Dioxide BUN Creatinine Glucose POC Glucose 131 H 120 H 121 H Lactic Acid Calcium Ionized Calcium Phosphorus Magnesium Total Bilirubin AST ALT Alkaline Phosphatase Ammonia Total Creatine Kinase CK-MB (CK-2) CK-MB (CK-2) Rel Index Total Protein Albumin Urine WBC (Auto) Vancomycin Trough Salicylates Acetaminophen Plasma/Serum Alcohol Crossmatch 01/16/20 01/16/20 01/17/20 12:15 23:46 05:32 WBC 13.6 H RBC 3.27 L Hgb 9.3 L Hct 28.5 L MCH RDW 17.0 H Plt Count 490 H Lymph % (Auto) 13.1 L [place] % (Auto) [place] # 1.0 H Baso # Seg Neutrophils % 77.5 H Seg Neuts % (Manual) Lymphocytes % (Manual) Monocytes % (Manual) Seg Neutrophils # 10.5 H Seg Neutrophils # Man Lymphocytes # (Manual) Monocytes # (Manual) Eosinophils # (Manual) Basophils # (Manual) PT INR APTT ABG pH ABG pO2 ABG HCO3 ABG O2 Saturation ABG Base Excess ABG Hemoglobin Oxyhemoglobin Sodium Potassium Chloride Carbon Dioxide BUN Creatinine Glucose POC Glucose 152 H 107 H Lactic Acid Calcium Ionized Calcium Phosphorus Magnesium Total Bilirubin AST ALT Alkaline Phosphatase Ammonia Total Creatine Kinase CK-MB (CK-2) CK-MB (CK-2) Rel Index Total Protein Albumin Urine WBC (Auto) Vancomycin Trough Salicylates Acetaminophen Plasma/Serum Alcohol Crossmatch 01/17/20 01/17/20 01/17/20 06:47 12:16 17:21 WBC RBC Hgb Hct MCH RDW Plt Count Lymph % (Auto) [place] % (Auto) [place] # Baso # Seg Neutrophils % Seg Neuts % (Manual) Lymphocytes % (Manual) Monocytes % (Manual) Seg Neutrophils # Seg Neutrophils # Man Lymphocytes # (Manual) Monocytes # (Manual) Eosinophils # (Manual) Basophils # (Manual) PT INR APTT ABG pH ABG pO2 ABG HCO3 ABG O2 Saturation ABG Base Excess ABG Hemoglobin Oxyhemoglobin Sodium Potassium Chloride Carbon Dioxide BUN Creatinine Glucose POC Glucose 112 H 145 H 150 H Lactic Acid Calcium Ionized Calcium Phosphorus Magnesium Total Bilirubin AST ALT Alkaline Phosphatase Ammonia Total Creatine Kinase CK-MB (CK-2) CK-MB (CK-2) Rel Index Total Protein Albumin Urine WBC (Auto) Vancomycin Trough Salicylates Acetaminophen Plasma/Serum Alcohol Crossmatch 01/17/20 01/18/20 01/18/20 23:34 05:47 12:43 WBC RBC Hgb Hct MCH RDW Plt Count Lymph % (Auto) [place] % (Auto) [place] # Baso # Seg Neutrophils % Seg Neuts % (Manual) Lymphocytes % (Manual) Monocytes % (Manual) Seg Neutrophils # Seg Neutrophils # Man Lymphocytes # (Manual) Monocytes # (Manual) Eosinophils # (Manual) Basophils # (Manual) PT INR APTT ABG pH ABG pO2 ABG HCO3 ABG O2 Saturation ABG Base Excess ABG Hemoglobin Oxyhemoglobin Sodium Potassium Chloride Carbon Dioxide BUN Creatinine Glucose POC Glucose 160 H 130 H 124 H Lactic Acid Calcium Ionized Calcium Phosphorus Magnesium Total Bilirubin AST ALT Alkaline Phosphatase Ammonia Total Creatine Kinase CK-MB (CK-2) CK-MB (CK-2) Rel Index Total Protein Albumin Urine WBC (Auto) Vancomycin Trough Salicylates Acetaminophen Plasma/Serum Alcohol Crossmatch 01/18/20 01/19/20 01/19/20 18:26 00:14 06:24 WBC RBC Hgb Hct MCH RDW Plt Count Lymph % (Auto) [place] % (Auto) [place] # Baso # Seg Neutrophils % Seg Neuts % (Manual) Lymphocytes % (Manual) Monocytes % (Manual) Seg Neutrophils # Seg Neutrophils # Man Lymphocytes # (Manual) Monocytes # (Manual) Eosinophils # (Manual) Basophils # (Manual) PT INR APTT ABG pH ABG pO2 ABG HCO3 ABG O2 Saturation ABG Base Excess ABG Hemoglobin Oxyhemoglobin Sodium Potassium Chloride Carbon Dioxide BUN Creatinine Glucose POC Glucose 119 H 114 H 144 H Lactic Acid Calcium Ionized Calcium Phosphorus Magnesium Total Bilirubin AST ALT Alkaline Phosphatase Ammonia Total Creatine Kinase CK-MB (CK-2) CK-MB (CK-2) Rel Index Total Protein Albumin Urine WBC (Auto) Vancomycin Trough Salicylates Acetaminophen Plasma/Serum Alcohol Crossmatch 01/19/20 01/19/20 01/20/20 12:24 17:50 12:06 WBC RBC Hgb Hct MCH RDW Plt Count Lymph % (Auto) [place] % (Auto) [place] # Baso # Seg Neutrophils % Seg Neuts % (Manual) Lymphocytes % (Manual) Monocytes % (Manual) Seg Neutrophils # Seg Neutrophils # Man Lymphocytes # (Manual) Monocytes # (Manual) Eosinophils # (Manual) Basophils # (Manual) PT INR APTT ABG pH ABG pO2 ABG HCO3 ABG O2 Saturation ABG Base Excess ABG Hemoglobin Oxyhemoglobin Sodium Potassium Chloride Carbon Dioxide BUN Creatinine Glucose POC Glucose 132 H 144 H 135 H Lactic Acid Calcium Ionized Calcium Phosphorus Magnesium Total Bilirubin AST ALT Alkaline Phosphatase Ammonia Total Creatine Kinase CK-MB (CK-2) CK-MB (CK-2) Rel Index Total Protein Albumin Urine WBC (Auto) Vancomycin Trough Salicylates Acetaminophen Plasma/Serum Alcohol Crossmatch 01/21/20 01/21/20 01/21/20 05:46 13:02 23:49 WBC RBC Hgb Hct MCH RDW Plt Count Lymph % (Auto) [place] % (Auto) [place] # Baso # Seg Neutrophils % Seg Neuts % (Manual) Lymphocytes % (Manual) Monocytes % (Manual) Seg Neutrophils # Seg Neutrophils # Man Lymphocytes # (Manual) Monocytes # (Manual) Eosinophils # (Manual) Basophils # (Manual) PT INR APTT ABG pH ABG pO2 ABG HCO3 ABG O2 Saturation ABG Base Excess ABG Hemoglobin Oxyhemoglobin Sodium Potassium Chloride Carbon Dioxide BUN Creatinine Glucose POC Glucose 114 H 136 H 120 H Lactic Acid Calcium Ionized Calcium Phosphorus Magnesium Total Bilirubin AST ALT Alkaline Phosphatase Ammonia Total Creatine Kinase CK-MB (CK-2) CK-MB (CK-2) Rel Index Total Protein Albumin Urine WBC (Auto) Vancomycin Trough Salicylates Acetaminophen Plasma/Serum Alcohol Crossmatch 01/22/20 01/22/20 01/22/20 05:41 11:44 16:31 WBC RBC Hgb Hct MCH RDW Plt Count Lymph % (Auto) [place] % (Auto) [place] # Baso # Seg Neutrophils % Seg Neuts % (Manual) Lymphocytes % (Manual) Monocytes % (Manual) Seg Neutrophils # Seg Neutrophils # Man Lymphocytes # (Manual) Monocytes # (Manual) Eosinophils # (Manual) Basophils # (Manual) PT INR APTT ABG pH ABG pO2 ABG HCO3 ABG O2 Saturation ABG Base Excess ABG Hemoglobin Oxyhemoglobin Sodium Potassium Chloride Carbon Dioxide BUN Creatinine Glucose POC Glucose 124 H 173 H 111 H Lactic Acid Calcium Ionized Calcium Phosphorus Magnesium Total Bilirubin AST ALT Alkaline Phosphatase Ammonia Total Creatine Kinase CK-MB (CK-2) CK-MB (CK-2) Rel Index Total Protein Albumin Urine WBC (Auto) Vancomycin Trough Salicylates Acetaminophen Plasma/Serum Alcohol Crossmatch 01/22/20 01/23/20 01/23/20 23:25 05:15 12:15 WBC RBC Hgb Hct MCH RDW Plt Count Lymph % (Auto) [place] % (Auto) [place] # Baso # Seg Neutrophils % Seg Neuts % (Manual) Lymphocytes % (Manual) Monocytes % (Manual) Seg Neutrophils # Seg Neutrophils # Man Lymphocytes # (Manual) Monocytes # (Manual) Eosinophils # (Manual) Basophils # (Manual) PT INR APTT ABG pH ABG pO2 ABG HCO3 ABG O2 Saturation ABG Base Excess ABG Hemoglobin Oxyhemoglobin Sodium Potassium Chloride Carbon Dioxide BUN Creatinine Glucose POC Glucose 134 H 117 H 129 H Lactic Acid Calcium Ionized Calcium Phosphorus Magnesium Total Bilirubin AST ALT Alkaline Phosphatase Ammonia Total Creatine Kinase CK-MB (CK-2) CK-MB (CK-2) Rel Index Total Protein Albumin Urine WBC (Auto) Vancomycin Trough Salicylates Acetaminophen Plasma/Serum Alcohol Crossmatch 01/23/20 01/23/20 01/23/20 16:58 21:17 23:47 WBC RBC Hgb Hct MCH RDW Plt Count Lymph % (Auto) [place] % (Auto) [place] # Baso # Seg Neutrophils % Seg Neuts % (Manual) Lymphocytes % (Manual) Monocytes % (Manual) Seg Neutrophils # Seg Neutrophils # Man Lymphocytes # (Manual) Monocytes # (Manual) Eosinophils # (Manual) Basophils # (Manual) PT INR APTT ABG pH ABG pO2 ABG HCO3 ABG O2 Saturation ABG Base Excess ABG Hemoglobin Oxyhemoglobin Sodium Potassium Chloride Carbon Dioxide BUN Creatinine Glucose POC Glucose 156 H 185 H 156 H Lactic Acid Calcium Ionized Calcium Phosphorus Magnesium Total Bilirubin AST ALT Alkaline Phosphatase Ammonia Total Creatine Kinase CK-MB (CK-2) CK-MB (CK-2) Rel Index Total Protein Albumin Urine WBC (Auto) Vancomycin Trough Salicylates Acetaminophen Plasma/Serum Alcohol Crossmatch 01/24/20 01/24/20 01/24/20 04:47 04:47 05:59 WBC 17.8 H RBC 3.60 L Hgb Hct MCH RDW 16.2 H Plt Count 688 H Lymph % (Auto) 11.8 L [place] % (Auto) 7.5 H [place] # 1.3 H Baso # Seg Neutrophils % 79.9 H Seg Neuts % (Manual) Lymphocytes % (Manual) Monocytes % (Manual) Seg Neutrophils # 14.2 H Seg Neutrophils # Man Lymphocytes # (Manual) Monocytes # (Manual) Eosinophils # (Manual) Basophils # (Manual) PT INR APTT ABG pH ABG pO2 ABG HCO3 ABG O2 Saturation ABG Base Excess ABG Hemoglobin Oxyhemoglobin Sodium 131 L Potassium Chloride 91.2 L Carbon Dioxide BUN 22 H Creatinine 0.3 L Glucose 123 H POC Glucose 147 H Lactic Acid Calcium 10.9 H Ionized Calcium Phosphorus Magnesium Total Bilirubin AST ALT Alkaline Phosphatase Ammonia Total Creatine Kinase CK-MB (CK-2) CK-MB (CK-2) Rel Index Total Protein Albumin Urine WBC (Auto) Vancomycin Trough Salicylates Acetaminophen Plasma/Serum Alcohol Crossmatch 01/24/20 01/24/20 01/25/20 11:47 16:45 00:18 WBC RBC Hgb Hct MCH RDW Plt Count Lymph % (Auto) [place] % (Auto) [place] # Baso # Seg Neutrophils % Seg Neuts % (Manual) Lymphocytes % (Manual) Monocytes % (Manual) Seg Neutrophils # Seg Neutrophils # Man Lymphocytes # (Manual) Monocytes # (Manual) Eosinophils # (Manual) Basophils # (Manual) PT INR APTT ABG pH ABG pO2 ABG HCO3 ABG O2 Saturation ABG Base Excess ABG Hemoglobin Oxyhemoglobin Sodium Potassium Chloride Carbon Dioxide BUN Creatinine Glucose POC Glucose 114 H 108 H 119 H Lactic Acid Calcium Ionized Calcium Phosphorus Magnesium Total Bilirubin AST ALT Alkaline Phosphatase Ammonia Total Creatine Kinase CK-MB (CK-2) CK-MB (CK-2) Rel Index Total Protein Albumin Urine WBC (Auto) Vancomycin Trough Salicylates Acetaminophen Plasma/Serum Alcohol Crossmatch 01/25/20 01/25/20 01/25/20 07:18 11:58 16:56 WBC RBC Hgb Hct MCH RDW Plt Count Lymph % (Auto) [place] % (Auto) [place] # Baso # Seg Neutrophils % Seg Neuts % (Manual) Lymphocytes % (Manual) Monocytes % (Manual) Seg Neutrophils # Seg Neutrophils # Man Lymphocytes # (Manual) Monocytes # (Manual) Eosinophils # (Manual) Basophils # (Manual) PT INR APTT ABG pH ABG pO2 ABG HCO3 ABG O2 Saturation ABG Base Excess ABG Hemoglobin Oxyhemoglobin Sodium Potassium Chloride Carbon Dioxide BUN Creatinine Glucose POC Glucose 136 H 136 H 147 H Lactic Acid Calcium Ionized Calcium Phosphorus Magnesium Total Bilirubin AST ALT Alkaline Phosphatase Ammonia Total Creatine Kinase CK-MB (CK-2) CK-MB (CK-2) Rel Index Total Protein Albumin Urine WBC (Auto) Vancomycin Trough Salicylates Acetaminophen Plasma/Serum Alcohol Crossmatch 01/26/20 01/26/20 01/26/20 00:29 05:59 05:59 WBC 12.8 H RBC Hgb Hct MCH RDW 16.4 H Plt Count 743 H Lymph % (Auto) [place] % (Auto) [place] # 0.9 H Baso # Seg Neutrophils % 76.2 H Seg Neuts % (Manual) Lymphocytes % (Manual) Monocytes % (Manual) Seg Neutrophils # 9.8 H Seg Neutrophils # Man Lymphocytes # (Manual) Monocytes # (Manual) Eosinophils # (Manual) Basophils # (Manual) PT INR APTT ABG pH ABG pO2 ABG HCO3 ABG O2 Saturation ABG Base Excess ABG Hemoglobin Oxyhemoglobin Sodium 132 L Potassium Chloride 90.9 L Carbon Dioxide BUN 23 H Creatinine 0.4 L Glucose 122 H POC Glucose 107 H Lactic Acid Calcium 11.0 H Ionized Calcium Phosphorus Magnesium Total Bilirubin AST ALT Alkaline Phosphatase Ammonia Total Creatine Kinase CK-MB (CK-2) CK-MB (CK-2) Rel Index Total Protein Albumin Urine WBC (Auto) Vancomycin Trough Salicylates Acetaminophen Plasma/Serum Alcohol Crossmatch 01/26/20 01/26/20 01/26/20 06:27 12:06 16:49 WBC RBC Hgb Hct MCH RDW Plt Count Lymph % (Auto) [place] % (Auto) [place] # Baso # Seg Neutrophils % Seg Neuts % (Manual) Lymphocytes % (Manual) Monocytes % (Manual) Seg Neutrophils # Seg Neutrophils # Man Lymphocytes # (Manual) Monocytes # (Manual) Eosinophils # (Manual) Basophils # (Manual) PT INR APTT ABG pH ABG pO2 ABG HCO3 ABG O2 Saturation ABG Base Excess ABG Hemoglobin Oxyhemoglobin Sodium Potassium Chloride Carbon Dioxide BUN Creatinine Glucose POC Glucose 132 H 132 H 110 H Lactic Acid Calcium Ionized Calcium Phosphorus Magnesium Total Bilirubin AST ALT Alkaline Phosphatase Ammonia Total Creatine Kinase CK-MB (CK-2) CK-MB (CK-2) Rel Index Total Protein Albumin Urine WBC (Auto) Vancomycin Trough Salicylates Acetaminophen Plasma/Serum Alcohol Crossmatch 01/27/20 01/27/20 01/27/20 00:08 11:49 16:24 WBC RBC Hgb Hct MCH RDW Plt Count Lymph % (Auto) [place] % (Auto) [place] # Baso # Seg Neutrophils % Seg Neuts % (Manual) Lymphocytes % (Manual) Monocytes % (Manual) Seg Neutrophils # Seg Neutrophils # Man Lymphocytes # (Manual) Monocytes # (Manual) Eosinophils # (Manual) Basophils # (Manual) PT INR APTT ABG pH ABG pO2 ABG HCO3 ABG O2 Saturation ABG Base Excess ABG Hemoglobin Oxyhemoglobin Sodium Potassium Chloride Carbon Dioxide BUN Creatinine Glucose POC Glucose 107 H 119 H 129 H Lactic Acid Calcium Ionized Calcium Phosphorus Magnesium Total Bilirubin AST ALT Alkaline Phosphatase Ammonia Total Creatine Kinase CK-MB (CK-2) CK-MB (CK-2) Rel Index Total Protein Albumin Urine WBC (Auto) Vancomycin Trough Salicylates Acetaminophen Plasma/Serum Alcohol Crossmatch 01/27/20 01/28/20 01/28/20 18:28 01:00 06:22 WBC RBC Hgb Hct MCH RDW Plt Count Lymph % (Auto) [place] % (Auto) [place] # Baso # Seg Neutrophils % Seg Neuts % (Manual) Lymphocytes % (Manual) Monocytes % (Manual) Seg Neutrophils # Seg Neutrophils # Man Lymphocytes # (Manual) Monocytes # (Manual) Eosinophils # (Manual) Basophils # (Manual) PT INR APTT ABG pH ABG pO2 ABG HCO3 ABG O2 Saturation ABG Base Excess ABG Hemoglobin Oxyhemoglobin Sodium Potassium Chloride Carbon Dioxide BUN Creatinine Glucose POC Glucose 126 H 121 H 114 H Lactic Acid Calcium Ionized Calcium Phosphorus Magnesium Total Bilirubin AST ALT Alkaline Phosphatase Ammonia Total Creatine Kinase CK-MB (CK-2) CK-MB (CK-2) Rel Index Total Protein Albumin Urine WBC (Auto) Vancomycin Trough Salicylates Acetaminophen Plasma/Serum Alcohol Crossmatch 0501/28/20 01/29/20 11:47 18:00 00:05 WBC RBC Hgb Hct MCH RDW Plt Count Lymph % (Auto) [place] % (Auto) [place] # Baso # Seg Neutrophils % Seg Neuts % (Manual) Lymphocytes % (Manual) Monocytes % (Manual) Seg Neutrophils # Seg Neutrophils # Man Lymphocytes # (Manual) Monocytes # (Manual) Eosinophils # (Manual) Basophils # (Manual) PT INR APTT ABG pH ABG pO2 ABG HCO3 ABG O2 Saturation ABG Base Excess ABG Hemoglobin Oxyhemoglobin Sodium Potassium Chloride Carbon Dioxide BUN Creatinine Glucose POC Glucose 106 H 117 H 127 H Lactic Acid Calcium Ionized Calcium Phosphorus Magnesium Total Bilirubin AST ALT Alkaline Phosphatase Ammonia Total Creatine Kinase CK-MB (CK-2) CK-MB (CK-2) Rel Index Total Protein Albumin Urine WBC (Auto) Vancomycin Trough Salicylates Acetaminophen Plasma/Serum Alcohol Crossmatch 01/29/20 01/29/20 01/29/20 06:04 11:40 16:38 WBC RBC Hgb Hct MCH RDW Plt Count Lymph % (Auto) [place] % (Auto) [place] # Baso # Seg Neutrophils % Seg Neuts % (Manual) Lymphocytes % (Manual) Monocytes % (Manual) Seg Neutrophils # Seg Neutrophils # Man Lymphocytes # (Manual) Monocytes # (Manual) Eosinophils # (Manual) Basophils # (Manual) PT INR APTT ABG pH ABG pO2 ABG HCO3 ABG O2 Saturation ABG Base Excess ABG Hemoglobin Oxyhemoglobin Sodium Potassium Chloride Carbon Dioxide BUN Creatinine Glucose POC Glucose 147 H 139 H 143 H Lactic Acid Calcium Ionized Calcium Phosphorus Magnesium Total Bilirubin AST ALT Alkaline Phosphatase Ammonia Total Creatine Kinase CK-MB (CK-2) CK-MB (CK-2) Rel Index Total Protein Albumin Urine WBC (Auto) Vancomycin Trough Salicylates Acetaminophen Plasma/Serum Alcohol Crossmatch 01/29/20 01/30/20 01/30/20 23:46 06:43 12:07 WBC RBC Hgb Hct MCH RDW Plt Count Lymph % (Auto) [place] % (Auto) [place] # Baso # Seg Neutrophils % Seg Neuts % (Manual) Lymphocytes % (Manual) Monocytes % (Manual) Seg Neutrophils # Seg Neutrophils # Man Lymphocytes # (Manual) Monocytes # (Manual) Eosinophils # (Manual) Basophils # (Manual) PT INR APTT ABG pH ABG pO2 ABG HCO3 ABG O2 Saturation ABG Base Excess ABG Hemoglobin Oxyhemoglobin Sodium Potassium Chloride Carbon Dioxide BUN Creatinine Glucose POC Glucose 122 H 122 H 134 H Lactic Acid Calcium Ionized Calcium Phosphorus Magnesium Total Bilirubin AST ALT Alkaline Phosphatase Ammonia Total Creatine Kinase CK-MB (CK-2) CK-MB (CK-2) Rel Index Total Protein Albumin Urine WBC (Auto) Vancomycin Trough Salicylates Acetaminophen Plasma/Serum Alcohol Crossmatch 01/30/20 01/31/20 01/31/20 17:59 00:52 05:54 WBC RBC Hgb Hct MCH RDW Plt Count Lymph % (Auto) [place] % (Auto) [place] # Baso # Seg Neutrophils % Seg Neuts % (Manual) Lymphocytes % (Manual) Monocytes % (Manual) Seg Neutrophils # Seg Neutrophils # Man Lymphocytes # (Manual) Monocytes # (Manual) Eosinophils # (Manual) Basophils # (Manual) PT INR APTT ABG pH ABG pO2 ABG HCO3 ABG O2 Saturation ABG Base Excess ABG Hemoglobin Oxyhemoglobin Sodium Potassium Chloride Carbon Dioxide BUN Creatinine Glucose POC Glucose 116 H 127 H 127 H Lactic Acid Calcium Ionized Calcium Phosphorus Magnesium Total Bilirubin AST ALT Alkaline Phosphatase Ammonia Total Creatine Kinase CK-MB (CK-2) CK-MB (CK-2) Rel Index Total Protein Albumin Urine WBC (Auto) Vancomycin Trough Salicylates Acetaminophen Plasma/Serum Alcohol Crossmatch 01/31/20 02/01/20 02/01/20 12:20 00:48 12:21 WBC RBC Hgb Hct MCH RDW Plt Count Lymph % (Auto) [place] % (Auto) [place] # Baso # Seg Neutrophils % Seg Neuts % (Manual) Lymphocytes % (Manual) Monocytes % (Manual) Seg Neutrophils # Seg Neutrophils # Man Lymphocytes # (Manual) Monocytes # (Manual) Eosinophils # (Manual) Basophils # (Manual) PT INR APTT ABG pH ABG pO2 ABG HCO3 ABG O2 Saturation ABG Base Excess ABG Hemoglobin Oxyhemoglobin Sodium Potassium Chloride Carbon Dioxide BUN Creatinine Glucose POC Glucose 126 H 154 H 123 H Lactic Acid Calcium Ionized Calcium Phosphorus Magnesium Total Bilirubin AST ALT Alkaline Phosphatase Ammonia Total Creatine Kinase CK-MB (CK-2) CK-MB (CK-2) Rel Index Total Protein Albumin Urine WBC (Auto) Vancomycin Trough Salicylates Acetaminophen Plasma/Serum Alcohol Crossmatch 02/01/20 02/02/20 02/02/20 23:58 06:08 11:50 WBC RBC Hgb Hct MCH RDW Plt Count Lymph % (Auto) [place] % (Auto) [place] # Baso # Seg Neutrophils % Seg Neuts % (Manual) Lymphocytes % (Manual) Monocytes % (Manual) Seg Neutrophils # Seg Neutrophils # Man Lymphocytes # (Manual) Monocytes # (Manual) Eosinophils # (Manual) Basophils # (Manual) PT INR APTT ABG pH ABG pO2 ABG HCO3 ABG O2 Saturation ABG Base Excess ABG Hemoglobin Oxyhemoglobin Sodium Potassium Chloride Carbon Dioxide BUN Creatinine Glucose POC Glucose 125 H 144 H 131 H Lactic Acid Calcium Ionized Calcium Phosphorus Magnesium Total Bilirubin AST ALT Alkaline Phosphatase Ammonia Total Creatine Kinase CK-MB (CK-2) CK-MB (CK-2) Rel Index Total Protein Albumin Urine WBC (Auto) Vancomycin Trough Salicylates Acetaminophen Plasma/Serum Alcohol Crossmatch 02/02/20 02/03/20 02/03/20 17:53 00:14 05:47 WBC RBC Hgb Hct MCH RDW Plt Count Lymph % (Auto) [place] % (Auto) [place] # Baso # Seg Neutrophils % Seg Neuts % (Manual) Lymphocytes % (Manual) Monocytes % (Manual) Seg Neutrophils # Seg Neutrophils # Man Lymphocytes # (Manual) Monocytes # (Manual) Eosinophils # (Manual) Basophils # (Manual) PT INR APTT ABG pH ABG pO2 ABG HCO3 ABG O2 Saturation ABG Base Excess ABG Hemoglobin Oxyhemoglobin Sodium Potassium Chloride Carbon Dioxide BUN Creatinine Glucose POC Glucose 108 H 122 H 118 H Lactic Acid Calcium Ionized Calcium Phosphorus Magnesium Total Bilirubin AST ALT Alkaline Phosphatase Ammonia Total Creatine Kinase CK-MB (CK-2) CK-MB (CK-2) Rel Index Total Protein Albumin Urine WBC (Auto) Vancomycin Trough Salicylates Acetaminophen Plasma/Serum Alcohol Crossmatch 02/03/20 02/03/20 02/03/20 05:59 05:59 11:49 WBC RBC 3.48 L Hgb Hct 29.9 L MCH RDW 16.2 H Plt Count 707 H Lymph % (Auto) [place] % (Auto) 9.3 H [place] # 0.9 H Baso # Seg Neutrophils % Seg Neuts % (Manual) Lymphocytes % (Manual) Monocytes % (Manual) Seg Neutrophils # Seg Neutrophils # Man Lymphocytes # (Manual) Monocytes # (Manual) Eosinophils # (Manual) Basophils # (Manual) PT INR APTT ABG pH ABG pO2 ABG HCO3 ABG O2 Saturation ABG Base Excess ABG Hemoglobin Oxyhemoglobin Sodium 136 L Potassium Chloride 93.4 L Carbon Dioxide BUN 20 H Creatinine 0.5 L Glucose 101 H POC Glucose 133 H Lactic Acid Calcium 10.8 H Ionized Calcium Phosphorus Magnesium Total Bilirubin AST ALT Alkaline Phosphatase Ammonia Total Creatine Kinase CK-MB (CK-2) CK-MB (CK-2) Rel Index Total Protein Albumin Urine WBC (Auto) Vancomycin Trough Salicylates Acetaminophen Plasma/Serum Alcohol Crossmatch 02/03/20 02/04/20 02/04/20 23:19 05:37 23:56 WBC RBC Hgb Hct MCH RDW Plt Count Lymph % (Auto) [place] % (Auto) [place] # Baso # Seg Neutrophils % Seg Neuts % (Manual) Lymphocytes % (Manual) Monocytes % (Manual) Seg Neutrophils # Seg Neutrophils # Man Lymphocytes # (Manual) Monocytes # (Manual) Eosinophils # (Manual) Basophils # (Manual) PT INR APTT ABG pH ABG pO2 ABG HCO3 ABG O2 Saturation ABG Base Excess ABG Hemoglobin Oxyhemoglobin Sodium Potassium Chloride Carbon Dioxide BUN Creatinine Glucose POC Glucose 135 H 108 H 158 H Lactic Acid Calcium Ionized Calcium Phosphorus Magnesium Total Bilirubin AST ALT Alkaline Phosphatase Ammonia Total Creatine Kinase CK-MB (CK-2) CK-MB (CK-2) Rel Index Total Protein Albumin Urine WBC (Auto) Vancomycin Trough Salicylates Acetaminophen Plasma/Serum Alcohol Crossmatch 02/05/20 02/05/20 02/06/20 05:33 23:24 05:50 WBC RBC Hgb Hct MCH RDW Plt Count Lymph % (Auto) [place] % (Auto) [place] # Baso # Seg Neutrophils % Seg Neuts % (Manual) Lymphocytes % (Manual) Monocytes % (Manual) Seg Neutrophils # Seg Neutrophils # Man Lymphocytes # (Manual) Monocytes # (Manual) Eosinophils # (Manual) Basophils # (Manual) PT INR APTT ABG pH ABG pO2 ABG HCO3 ABG O2 Saturation ABG Base Excess ABG Hemoglobin Oxyhemoglobin Sodium Potassium Chloride Carbon Dioxide BUN Creatinine Glucose POC Glucose 152 H 158 H 110 H Lactic Acid Calcium Ionized Calcium Phosphorus Magnesium Total Bilirubin AST ALT Alkaline Phosphatase Ammonia Total Creatine Kinase CK-MB (CK-2) CK-MB (CK-2) Rel Index Total Protein Albumin Urine WBC (Auto) Vancomycin Trough Salicylates Acetaminophen Plasma/Serum Alcohol Crossmatch 05/20/20 05/21/20 05/21/20 16:03 00:13 05:27 WBC RBC Hgb Hct MCH RDW Plt Count Lymph % (Auto) [place] % (Auto) [place] # Baso # Seg Neutrophils % Seg Neuts % (Manual) Lymphocytes % (Manual) Monocytes % (Manual) Seg Neutrophils # Seg Neutrophils # Man Lymphocytes # (Manual) Monocytes # (Manual) Eosinophils # (Manual) Basophils # (Manual) PT INR APTT ABG pH ABG pO2 ABG HCO3 ABG O2 Saturation ABG Base Excess ABG Hemoglobin Oxyhemoglobin Sodium Potassium Chloride Carbon Dioxide BUN Creatinine Glucose POC Glucose 130 H 115 H 115 H Lactic Acid Calcium Ionized Calcium Phosphorus Magnesium Total Bilirubin AST ALT Alkaline Phosphatase Ammonia Total Creatine Kinase CK-MB (CK-2) CK-MB (CK-2) Rel Index Total Protein Albumin Urine WBC (Auto) Vancomycin Trough Salicylates Acetaminophen Plasma/Serum Alcohol Crossmatch 02/07/20 02/07/20 02/08/20 11:42 17:23 00:37 WBC RBC Hgb Hct MCH RDW Plt Count Lymph % (Auto) [place] % (Auto) [place] # Baso # Seg Neutrophils % Seg Neuts % (Manual) Lymphocytes % (Manual) Monocytes % (Manual) Seg Neutrophils # Seg Neutrophils # Man Lymphocytes # (Manual) Monocytes # (Manual) Eosinophils # (Manual) Basophils # (Manual) PT INR APTT ABG pH ABG pO2 ABG HCO3 ABG O2 Saturation ABG Base Excess ABG Hemoglobin Oxyhemoglobin Sodium Potassium Chloride Carbon Dioxide BUN Creatinine Glucose POC Glucose 113 H 114 H 136 H Lactic Acid Calcium Ionized Calcium Phosphorus Magnesium Total Bilirubin AST ALT Alkaline Phosphatase Ammonia Total Creatine Kinase CK-MB (CK-2) CK-MB (CK-2) Rel Index Total Protein Albumin Urine WBC (Auto) Vancomycin Trough Salicylates Acetaminophen Plasma/Serum Alcohol Crossmatch 02/08/20 02/08/20 02/08/20 08:52 11:42 17:02 WBC RBC Hgb Hct MCH RDW Plt Count Lymph % (Auto) [place] % (Auto) [place] # Baso # Seg Neutrophils % Seg Neuts % (Manual) Lymphocytes % (Manual) Monocytes % (Manual) Seg Neutrophils # Seg Neutrophils # Man Lymphocytes # (Manual) Monocytes # (Manual) Eosinophils # (Manual) Basophils # (Manual) PT INR APTT ABG pH ABG pO2 ABG HCO3 ABG O2 Saturation ABG Base Excess ABG Hemoglobin Oxyhemoglobin Sodium 136 L Potassium Chloride 95.7 L Carbon Dioxide BUN 21 H Creatinine 0.4 L Glucose POC Glucose 128 H 145 H Lactic Acid Calcium 10.4 H Ionized Calcium Phosphorus Magnesium Total Bilirubin AST ALT Alkaline Phosphatase Ammonia Total Creatine Kinase CK-MB (CK-2) CK-MB (CK-2) Rel Index Total Protein Albumin Urine WBC (Auto) Vancomycin Trough Salicylates Acetaminophen Plasma/Serum Alcohol Crossmatch 02/09/20 02/09/20 02/09/20 01:05 11:52 16:19 WBC RBC Hgb Hct MCH RDW Plt Count Lymph % (Auto) [place] % (Auto) [place] # Baso # Seg Neutrophils % Seg Neuts % (Manual) Lymphocytes % (Manual) Monocytes % (Manual) Seg Neutrophils # Seg Neutrophils # Man Lymphocytes # (Manual) Monocytes # (Manual) Eosinophils # (Manual) Basophils # (Manual) PT INR APTT ABG pH ABG pO2 ABG HCO3 ABG O2 Saturation ABG Base Excess ABG Hemoglobin Oxyhemoglobin Sodium Potassium Chloride Carbon Dioxide BUN Creatinine Glucose POC Glucose 117 H 141 H 113 H Lactic Acid Calcium Ionized Calcium Phosphorus Magnesium Total Bilirubin AST ALT Alkaline Phosphatase Ammonia Total Creatine Kinase CK-MB (CK-2) CK-MB (CK-2) Rel Index Total Protein Albumin Urine WBC (Auto) Vancomycin Trough Salicylates Acetaminophen Plasma/Serum Alcohol Crossmatch 02/10/20 02/10/20 02/10/20 05:25 12:50 17:08 WBC RBC Hgb Hct MCH RDW Plt Count Lymph % (Auto) [place] % (Auto) [place] # Baso # Seg Neutrophils % Seg Neuts % (Manual) Lymphocytes % (Manual) Monocytes % (Manual) Seg Neutrophils # Seg Neutrophils # Man Lymphocytes # (Manual) Monocytes # (Manual) Eosinophils # (Manual) Basophils # (Manual) PT INR APTT ABG pH ABG pO2 ABG HCO3 ABG O2 Saturation ABG Base Excess ABG Hemoglobin Oxyhemoglobin Sodium Potassium Chloride Carbon Dioxide BUN Creatinine Glucose POC Glucose 136 H 127 H 111 H Lactic Acid Calcium Ionized Calcium Phosphorus Magnesium Total Bilirubin AST ALT Alkaline Phosphatase Ammonia Total Creatine Kinase CK-MB (CK-2) CK-MB (CK-2) Rel Index Total Protein Albumin Urine WBC (Auto) Vancomycin Trough Salicylates Acetaminophen Plasma/Serum Alcohol Crossmatch 02/10/20 02/11/20 02/11/20 23:55 06:11 12:07 WBC RBC Hgb Hct MCH RDW Plt Count Lymph % (Auto) [place] % (Auto) [place] # Baso # Seg Neutrophils % Seg Neuts % (Manual) Lymphocytes % (Manual) Monocytes % (Manual) Seg Neutrophils # Seg Neutrophils # Man Lymphocytes # (Manual) Monocytes # (Manual) Eosinophils # (Manual) Basophils # (Manual) PT INR APTT ABG pH ABG pO2 ABG HCO3 ABG O2 Saturation ABG Base Excess ABG Hemoglobin Oxyhemoglobin Sodium Potassium Chloride Carbon Dioxide BUN Creatinine Glucose POC Glucose 129 H 128 H 141 H Lactic Acid Calcium Ionized Calcium Phosphorus Magnesium Total Bilirubin AST ALT Alkaline Phosphatase Ammonia Total Creatine Kinase CK-MB (CK-2) CK-MB (CK-2) Rel Index Total Protein Albumin Urine WBC (Auto) Vancomycin Trough Salicylates Acetaminophen Plasma/Serum Alcohol Crossmatch 02/11/20 02/12/20 02/13/20 18:22 02:39 06:45 WBC RBC Hgb Hct MCH RDW Plt Count Lymph % (Auto) [place] % (Auto) [place] # Baso # Seg Neutrophils % Seg Neuts % (Manual) Lymphocytes % (Manual) Monocytes % (Manual) Seg Neutrophils # Seg Neutrophils # Man Lymphocytes # (Manual) Monocytes # (Manual) Eosinophils # (Manual) Basophils # (Manual) PT INR APTT ABG pH ABG pO2 ABG HCO3 ABG O2 Saturation ABG Base Excess ABG Hemoglobin Oxyhemoglobin Sodium Potassium Chloride Carbon Dioxide BUN Creatinine Glucose POC Glucose 118 H 107 H 124 H Lactic Acid Calcium Ionized Calcium Phosphorus Magnesium Total Bilirubin AST ALT Alkaline Phosphatase Ammonia Total Creatine Kinase CK-MB (CK-2) CK-MB (CK-2) Rel Index Total Protein Albumin Urine WBC (Auto) Vancomycin Trough Salicylates Acetaminophen Plasma/Serum Alcohol Crossmatch 02/13/20 02/13/20 02/14/20 12:26 18:19 00:21 WBC RBC Hgb Hct MCH RDW Plt Count Lymph % (Auto) [place] % (Auto) [place] # Baso # Seg Neutrophils % Seg Neuts % (Manual) Lymphocytes % (Manual) Monocytes % (Manual) Seg Neutrophils # Seg Neutrophils # Man Lymphocytes # (Manual) Monocytes # (Manual) Eosinophils # (Manual) Basophils # (Manual) PT INR APTT ABG pH ABG pO2 ABG HCO3 ABG O2 Saturation ABG Base Excess ABG Hemoglobin Oxyhemoglobin Sodium Potassium Chloride Carbon Dioxide BUN Creatinine Glucose POC Glucose 124 H 118 H 130 H Lactic Acid Calcium Ionized Calcium Phosphorus Magnesium Total Bilirubin AST ALT Alkaline Phosphatase Ammonia Total Creatine Kinase CK-MB (CK-2) CK-MB (CK-2) Rel Index Total Protein Albumin Urine WBC (Auto) Vancomycin Trough Salicylates Acetaminophen Plasma/Serum Alcohol Crossmatch 02/14/20 02/14/20 02/16/20 11:19 16:16 00:58 WBC RBC Hgb Hct MCH RDW Plt Count Lymph % (Auto) [place] % (Auto) [place] # Baso # Seg Neutrophils % Seg Neuts % (Manual) Lymphocytes % (Manual) Monocytes % (Manual) Seg Neutrophils # Seg Neutrophils # Man Lymphocytes # (Manual) Monocytes # (Manual) Eosinophils # (Manual) Basophils # (Manual) PT INR APTT ABG pH ABG pO2 ABG HCO3 ABG O2 Saturation ABG Base Excess ABG Hemoglobin Oxyhemoglobin Sodium Potassium Chloride Carbon Dioxide BUN Creatinine Glucose POC Glucose 135 H 119 H 121 H Lactic Acid Calcium Ionized Calcium Phosphorus Magnesium Total Bilirubin AST ALT Alkaline Phosphatase Ammonia Total Creatine Kinase CK-MB (CK-2) CK-MB (CK-2) Rel Index Total Protein Albumin Urine WBC (Auto) Vancomycin Trough Salicylates Acetaminophen Plasma/Serum Alcohol Crossmatch 02/16/20 02/16/20 02/16/20 12:12 18:22 23:51 WBC RBC Hgb Hct MCH RDW Plt Count Lymph % (Auto) [place] % (Auto) [place] # Baso # Seg Neutrophils % Seg Neuts % (Manual) Lymphocytes % (Manual) Monocytes % (Manual) Seg Neutrophils # Seg Neutrophils # Man Lymphocytes # (Manual) Monocytes # (Manual) Eosinophils # (Manual) Basophils # (Manual) PT INR APTT ABG pH ABG pO2 ABG HCO3 ABG O2 Saturation ABG Base Excess ABG Hemoglobin Oxyhemoglobin Sodium Potassium Chloride Carbon Dioxide BUN Creatinine Glucose POC Glucose 107 H 106 H 128 H Lactic Acid Calcium Ionized Calcium Phosphorus Magnesium Total Bilirubin AST ALT Alkaline Phosphatase Ammonia Total Creatine Kinase CK-MB (CK-2) CK-MB (CK-2) Rel Index Total Protein Albumin Urine WBC (Auto) Vancomycin Trough Salicylates Acetaminophen Plasma/Serum Alcohol Crossmatch 02/17/20 02/17/20 02/17/20 05:50 07:57 07:57 WBC 12.6 H RBC 3.52 L Hgb Hct MCH RDW 15.3 H Plt Count 643 H Lymph % (Auto) [place] % (Auto) 8.0 H [place] # 1.0 H Baso # Seg Neutrophils % Seg Neuts % (Manual) Lymphocytes % (Manual) Monocytes % (Manual) Seg Neutrophils # 8.5 H Seg Neutrophils # Man Lymphocytes # (Manual) Monocytes # (Manual) Eosinophils # (Manual) Basophils # (Manual) PT INR APTT ABG pH ABG pO2 ABG HCO3 ABG O2 Saturation ABG Base Excess ABG Hemoglobin Oxyhemoglobin Sodium Potassium Chloride 96.9 L Carbon Dioxide BUN 21 H Creatinine 0.4 L Glucose 113 H POC Glucose 116 H Lactic Acid Calcium 10.5 H Ionized Calcium Phosphorus Magnesium Total Bilirubin AST ALT Alkaline Phosphatase Ammonia Total Creatine Kinase CK-MB (CK-2) CK-MB (CK-2) Rel Index Total Protein Albumin Urine WBC (Auto) Vancomycin Trough Salicylates Acetaminophen Plasma/Serum Alcohol Crossmatch 02/17/20 02/17/20 02/18/20 12:05 18:16 00:13 WBC RBC Hgb Hct MCH RDW Plt Count Lymph % (Auto) [place] % (Auto) [place] # Baso # Seg Neutrophils % Seg Neuts % (Manual) Lymphocytes % (Manual) Monocytes % (Manual) Seg Neutrophils # Seg Neutrophils # Man Lymphocytes # (Manual) Monocytes # (Manual) Eosinophils # (Manual) Basophils # (Manual) PT INR APTT ABG pH ABG pO2 ABG HCO3 ABG O2 Saturation ABG Base Excess ABG Hemoglobin Oxyhemoglobin Sodium Potassium Chloride Carbon Dioxide BUN Creatinine Glucose POC Glucose 139 H 127 H 144 H Lactic Acid Calcium Ionized Calcium Phosphorus Magnesium Total Bilirubin AST ALT Alkaline Phosphatase Ammonia Total Creatine Kinase CK-MB (CK-2) CK-MB (CK-2) Rel Index Total Protein Albumin Urine WBC (Auto) Vancomycin Trough Salicylates Acetaminophen Plasma/Serum Alcohol Crossmatch 02/18/20 02/18/20 02/19/20 17:41 23:28 05:17 WBC RBC Hgb Hct MCH RDW Plt Count Lymph % (Auto) [place] % (Auto) [place] # Baso # Seg Neutrophils % Seg Neuts % (Manual) Lymphocytes % (Manual) Monocytes % (Manual) Seg Neutrophils # Seg Neutrophils # Man Lymphocytes # (Manual) Monocytes # (Manual) Eosinophils # (Manual) Basophils # (Manual) PT INR APTT ABG pH ABG pO2 ABG HCO3 ABG O2 Saturation ABG Base Excess ABG Hemoglobin Oxyhemoglobin Sodium Potassium Chloride Carbon Dioxide BUN Creatinine Glucose POC Glucose 118 H 166 H 116 H Lactic Acid Calcium Ionized Calcium Phosphorus Magnesium Total Bilirubin AST ALT Alkaline Phosphatase Ammonia Total Creatine Kinase CK-MB (CK-2) CK-MB (CK-2) Rel Index Total Protein Albumin Urine WBC (Auto) Vancomycin Trough Salicylates Acetaminophen Plasma/Serum Alcohol Crossmatch 02/19/20 02/19/20 02/20/20 12:33 17:02 00:12 WBC RBC Hgb Hct MCH RDW Plt Count Lymph % (Auto) [place] % (Auto) [place] # Baso # Seg Neutrophils % Seg Neuts % (Manual) Lymphocytes % (Manual) Monocytes % (Manual) Seg Neutrophils # Seg Neutrophils # Man Lymphocytes # (Manual) Monocytes # (Manual) Eosinophils # (Manual) Basophils # (Manual) PT INR APTT ABG pH ABG pO2 ABG HCO3 ABG O2 Saturation ABG Base Excess ABG Hemoglobin Oxyhemoglobin Sodium Potassium Chloride Carbon Dioxide BUN Creatinine Glucose POC Glucose 115 H 108 H 153 H Lactic Acid Calcium Ionized Calcium Phosphorus Magnesium Total Bilirubin AST ALT Alkaline Phosphatase Ammonia Total Creatine Kinase CK-MB (CK-2) CK-MB (CK-2) Rel Index Total Protein Albumin Urine WBC (Auto) Vancomycin Trough Salicylates Acetaminophen Plasma/Serum Alcohol Crossmatch 02/20/20 02/20/20 02/21/20 12:00 23:13 05:07 WBC RBC Hgb Hct MCH RDW Plt Count Lymph % (Auto) [place] % (Auto) [place] # Baso # Seg Neutrophils % Seg Neuts % (Manual) Lymphocytes % (Manual) Monocytes % (Manual) Seg Neutrophils # Seg Neutrophils # Man Lymphocytes # (Manual) Monocytes # (Manual) Eosinophils # (Manual) Basophils # (Manual) PT INR APTT ABG pH ABG pO2 ABG HCO3 ABG O2 Saturation ABG Base Excess ABG Hemoglobin Oxyhemoglobin Sodium Potassium Chloride Carbon Dioxide BUN Creatinine Glucose POC Glucose 171 H 129 H 116 H Lactic Acid Calcium Ionized Calcium Phosphorus Magnesium Total Bilirubin AST ALT Alkaline Phosphatase Ammonia Total Creatine Kinase CK-MB (CK-2) CK-MB (CK-2) Rel Index Total Protein Albumin Urine WBC (Auto) Vancomycin Trough Salicylates Acetaminophen Plasma/Serum Alcohol Crossmatch 02/21/20 02/22/20 02/22/20 12:15 00:42 06:30 WBC RBC Hgb Hct MCH RDW Plt Count Lymph % (Auto) [place] % (Auto) [place] # Baso # Seg Neutrophils % Seg Neuts % (Manual) Lymphocytes % (Manual) Monocytes % (Manual) Seg Neutrophils # Seg Neutrophils # Man Lymphocytes # (Manual) Monocytes # (Manual) Eosinophils # (Manual) Basophils # (Manual) PT INR APTT ABG pH ABG pO2 ABG HCO3 ABG O2 Saturation ABG Base Excess ABG Hemoglobin Oxyhemoglobin Sodium Potassium Chloride Carbon Dioxide BUN Creatinine Glucose POC Glucose 124 H 142 H 117 H Lactic Acid Calcium Ionized Calcium Phosphorus Magnesium Total Bilirubin AST ALT Alkaline Phosphatase Ammonia Total Creatine Kinase CK-MB (CK-2) CK-MB (CK-2) Rel Index Total Protein Albumin Urine WBC (Auto) Vancomycin Trough Salicylates Acetaminophen Plasma/Serum Alcohol Crossmatch 02/22/20 02/22/20 02/23/20 12:20 17:55 12:46 WBC RBC Hgb Hct MCH RDW Plt Count Lymph % (Auto) [place] % (Auto) [place] # Baso # Seg Neutrophils % Seg Neuts % (Manual) Lymphocytes % (Manual) Monocytes % (Manual) Seg Neutrophils # Seg Neutrophils # Man Lymphocytes # (Manual) Monocytes # (Manual) Eosinophils # (Manual) Basophils # (Manual) PT INR APTT ABG pH ABG pO2 ABG HCO3 ABG O2 Saturation ABG Base Excess ABG Hemoglobin Oxyhemoglobin Sodium Potassium Chloride Carbon Dioxide BUN Creatinine Glucose POC Glucose 121 H 157 H 112 H Lactic Acid Calcium Ionized Calcium Phosphorus Magnesium Total Bilirubin AST ALT Alkaline Phosphatase Ammonia Total Creatine Kinase CK-MB (CK-2) CK-MB (CK-2) Rel Index Total Protein Albumin Urine WBC (Auto) Vancomycin Trough Salicylates Acetaminophen Plasma/Serum Alcohol Crossmatch 02/23/20 02/24/20 02/24/20 16:47 00:38 07:00 WBC RBC Hgb Hct MCH RDW Plt Count Lymph % (Auto) [place] % (Auto) [place] # Baso # Seg Neutrophils % Seg Neuts % (Manual) Lymphocytes % (Manual) Monocytes % (Manual) Seg Neutrophils # Seg Neutrophils # Man Lymphocytes # (Manual) Monocytes # (Manual) Eosinophils # (Manual) Basophils # (Manual) PT INR APTT ABG pH ABG pO2 ABG HCO3 ABG O2 Saturation ABG Base Excess ABG Hemoglobin Oxyhemoglobin Sodium Potassium Chloride Carbon Dioxide BUN Creatinine Glucose POC Glucose 142 H 138 H 118 H Lactic Acid Calcium Ionized Calcium Phosphorus Magnesium Total Bilirubin AST ALT Alkaline Phosphatase Ammonia Total Creatine Kinase CK-MB (CK-2) CK-MB (CK-2) Rel Index Total Protein Albumin Urine WBC (Auto) Vancomycin Trough Salicylates Acetaminophen Plasma/Serum Alcohol Crossmatch 02/24/20 02/24/20 02/25/20 11:41 18:33 18:24 WBC RBC Hgb Hct MCH RDW Plt Count Lymph % (Auto) [place] % (Auto) [place] # Baso # Seg Neutrophils % Seg Neuts % (Manual) Lymphocytes % (Manual) Monocytes % (Manual) Seg Neutrophils # Seg Neutrophils # Man Lymphocytes # (Manual) Monocytes # (Manual) Eosinophils # (Manual) Basophils # (Manual) PT INR APTT ABG pH ABG pO2 ABG HCO3 ABG O2 Saturation ABG Base Excess ABG Hemoglobin Oxyhemoglobin Sodium Potassium Chloride Carbon Dioxide BUN Creatinine Glucose POC Glucose 152 H 126 H 120 H Lactic Acid Calcium Ionized Calcium Phosphorus Magnesium Total Bilirubin AST ALT Alkaline Phosphatase Ammonia Total Creatine Kinase CK-MB (CK-2) CK-MB (CK-2) Rel Index Total Protein Albumin Urine WBC (Auto) Vancomycin Trough Salicylates Acetaminophen Plasma/Serum Alcohol Crossmatch 02/25/20 02/26/20 02/26/20 23:40 05:46 11:32 WBC RBC Hgb Hct MCH RDW Plt Count Lymph % (Auto) [place] % (Auto) [place] # Baso # Seg Neutrophils % Seg Neuts % (Manual) Lymphocytes % (Manual) Monocytes % (Manual) Seg Neutrophils # Seg Neutrophils # Man Lymphocytes # (Manual) Monocytes # (Manual) Eosinophils # (Manual) Basophils # (Manual) PT INR APTT ABG pH ABG pO2 ABG HCO3 ABG O2 Saturation ABG Base Excess ABG Hemoglobin Oxyhemoglobin Sodium Potassium Chloride Carbon Dioxide BUN Creatinine Glucose POC Glucose 114 H 113 H 106 H Lactic Acid Calcium Ionized Calcium Phosphorus Magnesium Total Bilirubin AST ALT Alkaline Phosphatase Ammonia Total Creatine Kinase CK-MB (CK-2) CK-MB (CK-2) Rel Index Total Protein Albumin Urine WBC (Auto) Vancomycin Trough Salicylates Acetaminophen Plasma/Serum Alcohol Crossmatch 02/26/20 02/27/20 02/27/20 16:14 11:53 17:54 WBC RBC Hgb Hct MCH RDW Plt Count Lymph % (Auto) [place] % (Auto) [place] # Baso # Seg Neutrophils % Seg Neuts % (Manual) Lymphocytes % (Manual) Monocytes % (Manual) Seg Neutrophils # Seg Neutrophils # Man Lymphocytes # (Manual) Monocytes # (Manual) Eosinophils # (Manual) Basophils # (Manual) PT INR APTT ABG pH ABG pO2 ABG HCO3 ABG O2 Saturation ABG Base Excess ABG Hemoglobin Oxyhemoglobin Sodium Potassium Chloride Carbon Dioxide BUN Creatinine Glucose POC Glucose 123 H 134 H 119 H Lactic Acid Calcium Ionized Calcium Phosphorus Magnesium Total Bilirubin AST ALT Alkaline Phosphatase Ammonia Total Creatine Kinase CK-MB (CK-2) CK-MB (CK-2) Rel Index Total Protein Albumin Urine WBC (Auto) Vancomycin Trough Salicylates Acetaminophen Plasma/Serum Alcohol Crossmatch 02/27/20 02/28/20 02/28/20 23:51 03:40 03:40 WBC RBC 3.58 L Hgb Hct MCH RDW Plt Count 575 H Lymph % (Auto) [place] % (Auto) 9.4 H [place] # 1.0 H Baso # Seg Neutrophils % Seg Neuts % (Manual) Lymphocytes % (Manual) Monocytes % (Manual) Seg Neutrophils # Seg Neutrophils # Man Lymphocytes # (Manual) Monocytes # (Manual) Eosinophils # (Manual) Basophils # (Manual) PT INR APTT ABG pH ABG pO2 ABG HCO3 ABG O2 Saturation ABG Base Excess ABG Hemoglobin Oxyhemoglobin Sodium Potassium Chloride Carbon Dioxide BUN 23 H Creatinine 0.5 L Glucose 114 H POC Glucose 138 H Lactic Acid Calcium Ionized Calcium Phosphorus Magnesium Total Bilirubin AST ALT Alkaline Phosphatase Ammonia Total Creatine Kinase CK-MB (CK-2) CK-MB (CK-2) Rel Index Total Protein Albumin Urine WBC (Auto) Vancomycin Trough Salicylates Acetaminophen Plasma/Serum Alcohol Crossmatch 02/28/20 02/28/20 02/29/20 12:37 18:38 05:50 WBC RBC Hgb Hct MCH RDW Plt Count Lymph % (Auto) [place] % (Auto) [place] # Baso # Seg Neutrophils % Seg Neuts % (Manual) Lymphocytes % (Manual) Monocytes % (Manual) Seg Neutrophils # Seg Neutrophils # Man Lymphocytes # (Manual) Monocytes # (Manual) Eosinophils # (Manual) Basophils # (Manual) PT INR APTT ABG pH ABG pO2 ABG HCO3 ABG O2 Saturation ABG Base Excess ABG Hemoglobin Oxyhemoglobin Sodium Potassium Chloride Carbon Dioxide BUN Creatinine Glucose POC Glucose 115 H 120 H 114 H Lactic Acid Calcium Ionized Calcium Phosphorus Magnesium Total Bilirubin AST ALT Alkaline Phosphatase Ammonia Total Creatine Kinase CK-MB (CK-2) CK-MB (CK-2) Rel Index Total Protein Albumin Urine WBC (Auto) Vancomycin Trough Salicylates Acetaminophen Plasma/Serum Alcohol Crossmatch 02/29/20 02/29/20 03/01/20 18:53 23:10 06:53 WBC RBC Hgb Hct MCH RDW Plt Count Lymph % (Auto) [place] % (Auto) [place] # Baso # Seg Neutrophils % Seg Neuts % (Manual) Lymphocytes % (Manual) Monocytes % (Manual) Seg Neutrophils # Seg Neutrophils # Man Lymphocytes # (Manual) Monocytes # (Manual) Eosinophils # (Manual) Basophils # (Manual) PT INR APTT ABG pH ABG pO2 ABG HCO3 ABG O2 Saturation ABG Base Excess ABG Hemoglobin Oxyhemoglobin Sodium Potassium Chloride Carbon Dioxide BUN Creatinine Glucose POC Glucose 112 H 147 H 131 H Lactic Acid Calcium Ionized Calcium Phosphorus Magnesium Total Bilirubin AST ALT Alkaline Phosphatase Ammonia Total Creatine Kinase CK-MB (CK-2) CK-MB (CK-2) Rel Index Total Protein Albumin Urine WBC (Auto) Vancomycin Trough Salicylates Acetaminophen Plasma/Serum Alcohol Crossmatch 03/01/20 03/01/20 03/02/20 17:31 18:35 00:10 WBC RBC Hgb Hct MCH RDW Plt Count Lymph % (Auto) [place] % (Auto) [place] # Baso # Seg Neutrophils % Seg Neuts % (Manual) Lymphocytes % (Manual) Monocytes % (Manual) Seg Neutrophils # Seg Neutrophils # Man Lymphocytes # (Manual) Monocytes # (Manual) Eosinophils # (Manual) Basophils # (Manual) PT INR APTT ABG pH ABG pO2 ABG HCO3 ABG O2 Saturation ABG Base Excess ABG Hemoglobin Oxyhemoglobin Sodium Potassium Chloride Carbon Dioxide BUN Creatinine Glucose POC Glucose 61 L 129 H 117 H Lactic Acid Calcium Ionized Calcium Phosphorus Magnesium Total Bilirubin AST ALT Alkaline Phosphatase Ammonia Total Creatine Kinase CK-MB (CK-2) CK-MB (CK-2) Rel Index Total Protein Albumin Urine WBC (Auto) Vancomycin Trough Salicylates Acetaminophen Plasma/Serum Alcohol Crossmatch 03/02/20 03/02/20 03/02/20 06:56 12:02 18:42 WBC RBC Hgb Hct MCH RDW Plt Count Lymph % (Auto) [place] % (Auto) [place] # Baso # Seg Neutrophils % Seg Neuts % (Manual) Lymphocytes % (Manual) Monocytes % (Manual) Seg Neutrophils # Seg Neutrophils # Man Lymphocytes # (Manual) Monocytes # (Manual) Eosinophils # (Manual) Basophils # (Manual) PT INR APTT ABG pH ABG pO2 ABG HCO3 ABG O2 Saturation ABG Base Excess ABG Hemoglobin Oxyhemoglobin Sodium Potassium Chloride Carbon Dioxide BUN Creatinine Glucose POC Glucose 125 H 111 H 126 H Lactic Acid Calcium Ionized Calcium Phosphorus Magnesium Total Bilirubin AST ALT Alkaline Phosphatase Ammonia Total Creatine Kinase CK-MB (CK-2) CK-MB (CK-2) Rel Index Total Protein Albumin Urine WBC (Auto) Vancomycin Trough Salicylates Acetaminophen Plasma/Serum Alcohol Crossmatch 03/03/20 03/03/20 03/03/20 00:18 06:11 11:50 WBC RBC Hgb Hct MCH RDW Plt Count Lymph % (Auto) [place] % (Auto) [place] # Baso # Seg Neutrophils % Seg Neuts % (Manual) Lymphocytes % (Manual) Monocytes % (Manual) Seg Neutrophils # Seg Neutrophils # Man Lymphocytes # (Manual) Monocytes # (Manual) Eosinophils # (Manual) Basophils # (Manual) PT INR APTT ABG pH ABG pO2 ABG HCO3 ABG O2 Saturation ABG Base Excess ABG Hemoglobin Oxyhemoglobin Sodium Potassium Chloride Carbon Dioxide BUN Creatinine Glucose POC Glucose 139 H 155 H 118 H Lactic Acid Calcium Ionized Calcium Phosphorus Magnesium Total Bilirubin AST ALT Alkaline Phosphatase Ammonia Total Creatine Kinase CK-MB (CK-2) CK-MB (CK-2) Rel Index Total Protein Albumin Urine WBC (Auto) Vancomycin Trough Salicylates Acetaminophen Plasma/Serum Alcohol Crossmatch 03/03/20 03/03/20 03/04/20 18:09 23:46 05:37 WBC RBC Hgb Hct MCH RDW Plt Count Lymph % (Auto) [place] % (Auto) [place] # Baso # Seg Neutrophils % Seg Neuts % (Manual) Lymphocytes % (Manual) Monocytes % (Manual) Seg Neutrophils # Seg Neutrophils # Man Lymphocytes # (Manual) Monocytes # (Manual) Eosinophils # (Manual) Basophils # (Manual) PT INR APTT ABG pH ABG pO2 ABG HCO3 ABG O2 Saturation ABG Base Excess ABG Hemoglobin Oxyhemoglobin Sodium Potassium Chloride Carbon Dioxide BUN Creatinine Glucose POC Glucose 109 H 132 H 111 H Lactic Acid Calcium Ionized Calcium Phosphorus Magnesium Total Bilirubin AST ALT Alkaline Phosphatase Ammonia Total Creatine Kinase CK-MB (CK-2) CK-MB (CK-2) Rel Index Total Protein Albumin Urine WBC (Auto) Vancomycin Trough Salicylates Acetaminophen Plasma/Serum Alcohol Crossmatch 03/04/20 03/04/20 03/05/20 11:38 17:54 00:14 WBC RBC Hgb Hct MCH RDW Plt Count Lymph % (Auto) [place] % (Auto) [place] # Baso # Seg Neutrophils % Seg Neuts % (Manual) Lymphocytes % (Manual) Monocytes % (Manual) Seg Neutrophils # Seg Neutrophils # Man Lymphocytes # (Manual) Monocytes # (Manual) Eosinophils # (Manual) Basophils # (Manual) PT INR APTT ABG pH ABG pO2 ABG HCO3 ABG O2 Saturation ABG Base Excess ABG Hemoglobin Oxyhemoglobin Sodium Potassium Chloride Carbon Dioxide BUN Creatinine Glucose POC Glucose 138 H 118 H 134 H Lactic Acid Calcium Ionized Calcium Phosphorus Magnesium Total Bilirubin AST ALT Alkaline Phosphatase Ammonia Total Creatine Kinase CK-MB (CK-2) CK-MB (CK-2) Rel Index Total Protein Albumin Urine WBC (Auto) Vancomycin Trough Salicylates Acetaminophen Plasma/Serum Alcohol Crossmatch 03/06/20 03/06/20 03/06/20 03:37 03:37 06:29 WBC RBC Hgb Hct MCH RDW Plt Count 550 H Lymph % (Auto) [place] % (Auto) 9.1 H [place] # Baso # Seg Neutrophils % Seg Neuts % (Manual) Lymphocytes % (Manual) Monocytes % (Manual) Seg Neutrophils # Seg Neutrophils # Man Lymphocytes # (Manual) Monocytes # (Manual) Eosinophils # (Manual) Basophils # (Manual) PT INR APTT ABG pH ABG pO2 ABG HCO3 ABG O2 Saturation ABG Base Excess ABG Hemoglobin Oxyhemoglobin Sodium Potassium Chloride Carbon Dioxide BUN 26 H Creatinine 0.5 L Glucose POC Glucose 128 H Lactic Acid Calcium 10.4 H Ionized Calcium Phosphorus Magnesium Total Bilirubin AST ALT Alkaline Phosphatase Ammonia Total Creatine Kinase CK-MB (CK-2) CK-MB (CK-2) Rel Index Total Protein Albumin Urine WBC (Auto) Vancomycin Trough Salicylates Acetaminophen Plasma/Serum Alcohol Crossmatch 03/06/20 03/07/20 03/07/20 17:47 06:37 12:37 WBC RBC Hgb Hct MCH RDW Plt Count Lymph % (Auto) [place] % (Auto) [place] # Baso # Seg Neutrophils % Seg Neuts % (Manual) Lymphocytes % (Manual) Monocytes % (Manual) Seg Neutrophils # Seg Neutrophils # Man Lymphocytes # (Manual) Monocytes # (Manual) Eosinophils # (Manual) Basophils # (Manual) PT INR APTT ABG pH ABG pO2 ABG HCO3 ABG O2 Saturation ABG Base Excess ABG Hemoglobin Oxyhemoglobin Sodium Potassium Chloride Carbon Dioxide BUN Creatinine Glucose POC Glucose 120 H 113 H 118 H Lactic Acid Calcium Ionized Calcium Phosphorus Magnesium Total Bilirubin AST ALT Alkaline Phosphatase Ammonia Total Creatine Kinase CK-MB (CK-2) CK-MB (CK-2) Rel Index Total Protein Albumin Urine WBC (Auto) Vancomycin Trough Salicylates Acetaminophen Plasma/Serum Alcohol Crossmatch 03/07/20 03/08/20 03/08/20 16:41 00:55 06:25 WBC RBC Hgb Hct MCH RDW Plt Count Lymph % (Auto) [place] % (Auto) [place] # Baso # Seg Neutrophils % Seg Neuts % (Manual) Lymphocytes % (Manual) Monocytes % (Manual) Seg Neutrophils # Seg Neutrophils # Man Lymphocytes # (Manual) Monocytes # (Manual) Eosinophils # (Manual) Basophils # (Manual) PT INR APTT ABG pH ABG pO2 ABG HCO3 ABG O2 Saturation ABG Base Excess ABG Hemoglobin Oxyhemoglobin Sodium Potassium Chloride Carbon Dioxide BUN Creatinine Glucose POC Glucose 108 H 139 H 127 H Lactic Acid Calcium Ionized Calcium Phosphorus Magnesium Total Bilirubin AST ALT Alkaline Phosphatase Ammonia Total Creatine Kinase CK-MB (CK-2) CK-MB (CK-2) Rel Index Total Protein Albumin Urine WBC (Auto) Vancomycin Trough Salicylates Acetaminophen Plasma/Serum Alcohol Crossmatch 03/08/20 03/08/20 03/08/20 12:49 13:25 17:13 WBC RBC Hgb Hct MCH RDW Plt Count Lymph % (Auto) [place] % (Auto) [place] # Baso # Seg Neutrophils % Seg Neuts % (Manual) Lymphocytes % (Manual) Monocytes % (Manual) Seg Neutrophils # Seg Neutrophils # Man Lymphocytes # (Manual) Monocytes # (Manual) Eosinophils # (Manual) Basophils # (Manual) PT INR APTT ABG pH ABG pO2 71.1 L ABG HCO3 26.2 H ABG O2 Saturation ABG Base Excess ABG Hemoglobin 8.2 L Oxyhemoglobin 94.8 L Sodium Potassium Chloride Carbon Dioxide BUN Creatinine Glucose POC Glucose 127 H 147 H Lactic Acid Calcium Ionized Calcium Phosphorus Magnesium Total Bilirubin AST ALT Alkaline Phosphatase Ammonia Total Creatine Kinase CK-MB (CK-2) CK-MB (CK-2) Rel Index Total Protein Albumin Urine WBC (Auto) Vancomycin Trough Salicylates Acetaminophen Plasma/Serum Alcohol Crossmatch 03/09/20 03/09/20 03/09/20 06:28 08:36 23:58 WBC RBC Hgb Hct MCH RDW Plt Count Lymph % (Auto) [place] % (Auto) [place] # Baso # Seg Neutrophils % Seg Neuts % (Manual) Lymphocytes % (Manual) Monocytes % (Manual) Seg Neutrophils # Seg Neutrophils # Man Lymphocytes # (Manual) Monocytes # (Manual) Eosinophils # (Manual) Basophils # (Manual) PT INR APTT ABG pH ABG pO2 ABG HCO3 ABG O2 Saturation ABG Base Excess ABG Hemoglobin Oxyhemoglobin Sodium Potassium Chloride Carbon Dioxide BUN Creatinine Glucose POC Glucose 139 H 167 H 122 H Lactic Acid Calcium Ionized Calcium Phosphorus Magnesium Total Bilirubin AST ALT Alkaline Phosphatase Ammonia Total Creatine Kinase CK-MB (CK-2) CK-MB (CK-2) Rel Index Total Protein Albumin Urine WBC (Auto) Vancomycin Trough Salicylates Acetaminophen Plasma/Serum Alcohol Crossmatch 03/10/20 03/10/20 03/11/20 06:32 23:27 06:23 WBC RBC Hgb Hct MCH RDW Plt Count Lymph % (Auto) [place] % (Auto) [place] # Baso # Seg Neutrophils % Seg Neuts % (Manual) Lymphocytes % (Manual) Monocytes % (Manual) Seg Neutrophils # Seg Neutrophils # Man Lymphocytes # (Manual) Monocytes # (Manual) Eosinophils # (Manual) Basophils # (Manual) PT INR APTT ABG pH ABG pO2 ABG HCO3 ABG O2 Saturation ABG Base Excess ABG Hemoglobin Oxyhemoglobin Sodium Potassium Chloride Carbon Dioxide BUN Creatinine Glucose POC Glucose 165 H 115 H 139 H Lactic Acid Calcium Ionized Calcium Phosphorus Magnesium Total Bilirubin AST ALT Alkaline Phosphatase Ammonia Total Creatine Kinase CK-MB (CK-2) CK-MB (CK-2) Rel Index Total Protein Albumin Urine WBC (Auto) Vancomycin Trough Salicylates Acetaminophen Plasma/Serum Alcohol Crossmatch 03/11/20 03/11/20 03/12/20 12:29 18:02 04:53 WBC RBC Hgb Hct MCH RDW Plt Count 625 H Lymph % (Auto) [place] % (Auto) [place] # Baso # Seg Neutrophils % Seg Neuts % (Manual) Lymphocytes % (Manual) Monocytes % (Manual) Seg Neutrophils # Seg Neutrophils # Man Lymphocytes # (Manual) Monocytes # (Manual) Eosinophils # (Manual) Basophils # (Manual) PT INR APTT ABG pH ABG pO2 ABG HCO3 ABG O2 Saturation ABG Base Excess ABG Hemoglobin Oxyhemoglobin Sodium Potassium Chloride Carbon Dioxide BUN Creatinine Glucose POC Glucose 164 H 113 H Lactic Acid Calcium Ionized Calcium Phosphorus Magnesium Total Bilirubin AST ALT Alkaline Phosphatase Ammonia Total Creatine Kinase CK-MB (CK-2) CK-MB (CK-2) Rel Index Total Protein Albumin Urine WBC (Auto) Vancomycin Trough Salicylates Acetaminophen Plasma/Serum Alcohol Crossmatch 03/12/20 03/12/20 03/12/20 04:53 06:26 12:38 WBC RBC Hgb Hct MCH RDW Plt Count Lymph % (Auto) [place] % (Auto) [place] # Baso # Seg Neutrophils % Seg Neuts % (Manual) Lymphocytes % (Manual) Monocytes % (Manual) Seg Neutrophils # Seg Neutrophils # Man Lymphocytes # (Manual) Monocytes # (Manual) Eosinophils # (Manual) Basophils # (Manual) PT INR APTT ABG pH ABG pO2 ABG HCO3 ABG O2 Saturation ABG Base Excess ABG Hemoglobin Oxyhemoglobin Sodium Potassium 5.3 H Chloride Carbon Dioxide BUN 34 H Creatinine Glucose 159 H POC Glucose 149 H 130 H Lactic Acid Calcium 10.7 H Ionized Calcium Phosphorus Magnesium Total Bilirubin AST ALT Alkaline Phosphatase Ammonia Total Creatine Kinase CK-MB (CK-2) CK-MB (CK-2) Rel Index Total Protein Albumin Urine WBC (Auto) Vancomycin Trough Salicylates Acetaminophen Plasma/Serum Alcohol Crossmatch 03/13/20 03/13/20 03/13/20 03:50 06:12 18:11 WBC RBC Hgb Hct MCH RDW Plt Count Lymph % (Auto) [place] % (Auto) [place] # Baso # Seg Neutrophils % Seg Neuts % (Manual) Lymphocytes % (Manual) Monocytes % (Manual) Seg Neutrophils # Seg Neutrophils # Man Lymphocytes # (Manual) Monocytes # (Manual) Eosinophils # (Manual) Basophils # (Manual) PT INR APTT ABG pH ABG pO2 ABG HCO3 ABG O2 Saturation ABG Base Excess ABG Hemoglobin Oxyhemoglobin Sodium Potassium Chloride Carbon Dioxide 20 L BUN 30 H Creatinine 0.6 L Glucose 153 H POC Glucose 124 H 111 H Lactic Acid Calcium Ionized Calcium Phosphorus Magnesium Total Bilirubin AST ALT Alkaline Phosphatase Ammonia Total Creatine Kinase CK-MB (CK-2) CK-MB (CK-2) Rel Index Total Protein Albumin Urine WBC (Auto) Vancomycin Trough Salicylates Acetaminophen Plasma/Serum Alcohol Crossmatch 03/14/20 03/14/20 03/15/20 12:01 15:40 00:02 WBC RBC Hgb Hct MCH RDW Plt Count Lymph % (Auto) [place] % (Auto) [place] # Baso # Seg Neutrophils % Seg Neuts % (Manual) Lymphocytes % (Manual) Monocytes % (Manual) Seg Neutrophils # Seg Neutrophils # Man Lymphocytes # (Manual) Monocytes # (Manual) Eosinophils # (Manual) Basophils # (Manual) PT INR APTT ABG pH ABG pO2 ABG HCO3 ABG O2 Saturation ABG Base Excess ABG Hemoglobin Oxyhemoglobin Sodium Potassium Chloride Carbon Dioxide BUN Creatinine Glucose POC Glucose 116 H 125 H 143 H Lactic Acid Calcium Ionized Calcium Phosphorus Magnesium Total Bilirubin AST ALT Alkaline Phosphatase Ammonia Total Creatine Kinase CK-MB (CK-2) CK-MB (CK-2) Rel Index Total Protein Albumin Urine WBC (Auto) Vancomycin Trough Salicylates Acetaminophen Plasma/Serum Alcohol Crossmatch 03/15/20 03/15/20 03/16/20 12:03 18:14 12:14 WBC RBC Hgb Hct MCH RDW Plt Count Lymph % (Auto) [place] % (Auto) [place] # Baso # Seg Neutrophils % Seg Neuts % (Manual) Lymphocytes % (Manual) Monocytes % (Manual) Seg Neutrophils # Seg Neutrophils # Man Lymphocytes # (Manual) Monocytes # (Manual) Eosinophils # (Manual) Basophils # (Manual) PT INR APTT ABG pH ABG pO2 ABG HCO3 ABG O2 Saturation ABG Base Excess ABG Hemoglobin Oxyhemoglobin Sodium Potassium Chloride Carbon Dioxide BUN Creatinine Glucose POC Glucose 106 H 107 H 107 H Lactic Acid Calcium Ionized Calcium Phosphorus Magnesium Total Bilirubin AST ALT Alkaline Phosphatase Ammonia Total Creatine Kinase CK-MB (CK-2) CK-MB (CK-2) Rel Index Total Protein Albumin Urine WBC (Auto) Vancomycin Trough Salicylates Acetaminophen Plasma/Serum Alcohol Crossmatch 03/16/20 03/17/20 03/17/20 18:30 05:44 12:09 WBC RBC Hgb Hct MCH RDW Plt Count Lymph % (Auto) [place] % (Auto) [place] # Baso # Seg Neutrophils % Seg Neuts % (Manual) Lymphocytes % (Manual) Monocytes % (Manual) Seg Neutrophils # Seg Neutrophils # Man Lymphocytes # (Manual) Monocytes # (Manual) Eosinophils # (Manual) Basophils # (Manual) PT INR APTT ABG pH ABG pO2 ABG HCO3 ABG O2 Saturation ABG Base Excess ABG Hemoglobin Oxyhemoglobin Sodium Potassium Chloride Carbon Dioxide BUN Creatinine Glucose POC Glucose 128 H 114 H 120 H Lactic Acid Calcium Ionized Calcium Phosphorus Magnesium Total Bilirubin AST ALT Alkaline Phosphatase Ammonia Total Creatine Kinase CK-MB (CK-2) CK-MB (CK-2) Rel Index Total Protein Albumin Urine WBC (Auto) Vancomycin Trough Salicylates Acetaminophen Plasma/Serum Alcohol Crossmatch 03/17/20 03/17/20 03/18/20 16:51 23:36 07:07 WBC RBC Hgb Hct MCH RDW Plt Count Lymph % (Auto) [place] % (Auto) [place] # Baso # Seg Neutrophils % Seg Neuts % (Manual) Lymphocytes % (Manual) Monocytes % (Manual) Seg Neutrophils # Seg Neutrophils # Man Lymphocytes # (Manual) Monocytes # (Manual) Eosinophils # (Manual) Basophils # (Manual) PT INR APTT ABG pH ABG pO2 ABG HCO3 ABG O2 Saturation ABG Base Excess ABG Hemoglobin Oxyhemoglobin Sodium Potassium Chloride Carbon Dioxide BUN Creatinine Glucose POC Glucose 108 H 145 H 116 H Lactic Acid Calcium Ionized Calcium Phosphorus Magnesium Total Bilirubin AST ALT Alkaline Phosphatase Ammonia Total Creatine Kinase CK-MB (CK-2) CK-MB (CK-2) Rel Index Total Protein Albumin Urine WBC (Auto) Vancomycin Trough Salicylates Acetaminophen Plasma/Serum Alcohol Crossmatch 03/18/20 03/19/20 03/19/20 18:11 06:09 11:49 WBC RBC Hgb Hct MCH RDW Plt Count Lymph % (Auto) [place] % (Auto) [place] # Baso # Seg Neutrophils % Seg Neuts % (Manual) Lymphocytes % (Manual) Monocytes % (Manual) Seg Neutrophils # Seg Neutrophils # Man Lymphocytes # (Manual) Monocytes # (Manual) Eosinophils # (Manual) Basophils # (Manual) PT INR APTT ABG pH ABG pO2 ABG HCO3 ABG O2 Saturation ABG Base Excess ABG Hemoglobin Oxyhemoglobin Sodium Potassium Chloride Carbon Dioxide BUN Creatinine Glucose POC Glucose 106 H 160 H 145 H Lactic Acid Calcium Ionized Calcium Phosphorus Magnesium Total Bilirubin AST ALT Alkaline Phosphatase Ammonia Total Creatine Kinase CK-MB (CK-2) CK-MB (CK-2) Rel Index Total Protein Albumin Urine WBC (Auto) Vancomycin Trough Salicylates Acetaminophen Plasma/Serum Alcohol Crossmatch 03/20/20 03/20/20 01:01 06:14 WBC RBC Hgb Hct MCH RDW Plt Count Lymph % (Auto) [place] % (Auto) [place] # Baso # Seg Neutrophils % Seg Neuts % (Manual) Lymphocytes % (Manual) Monocytes % (Manual) Seg Neutrophils # Seg Neutrophils # Man Lymphocytes # (Manual) Monocytes # (Manual) Eosinophils # (Manual) Basophils # (Manual) PT INR APTT ABG pH ABG pO2 ABG HCO3 ABG O2 Saturation ABG Base Excess ABG Hemoglobin Oxyhemoglobin Sodium Potassium Chloride Carbon Dioxide BUN Creatinine Glucose POC Glucose 109 H 122 H Lactic Acid Calcium Ionized Calcium Phosphorus Magnesium Total Bilirubin AST ALT Alkaline Phosphatase Ammonia Total Creatine Kinase CK-MB (CK-2) CK-MB (CK-2) Rel Index Total Protein Albumin Urine WBC (Auto) Vancomycin Trough Salicylates Acetaminophen Plasma/Serum Alcohol Crossmatch Allied health notes reviewed: RT
[2020-03-20] MEDS: ENOXAPARIN 40 MG/0.4 ML INJ SUB-Q SCH (21:14)
[2020-03-21] MEDS: IPRATROPIUM/ALBUTEROL SULFATE 3 ML AMPUL.NEB IH SCH ×4 (04:03→22:00)
[2020-03-21] MEDS: ACETYLCYSTEINE 20% 200 MG/1 ML *FOR INHALATION USE INHALATION SCH ×2 (07:23→22:00)
[2020-03-21] MEDS: ACETAMINOPHEN 325 MG/10.15 ML ORAL LIQD UNIT DOSE FEEDTUBE PRN (10:28)
[2020-03-21] MEDS: SCOPOLAMINE TRANSDERMAL PATCH 72 HR TD SCH (10:29)
[2020-03-21] MEDS: MIRTAZAPINE 30 MG TAB PO SCH (10:29)
[2020-03-21] MEDS: hydrOXYzine PAMOATE 25 MG CAP PO SCH ×2 (10:29→21:43)
[2020-03-21] MEDS: QUEtiapine 100 MG TAB FEEDTUBE SCH ×2 (10:30→21:44)
[2020-03-21] MEDS: SERTRALINE 50 MG TAB PO SCH (10:30)
[2020-03-21] MEDS: NICOTINE 21 MG/24 HR PATCH TD SCH (10:31)
[2020-03-21] MEDS: LANSOPRAZOLE 30 MG SOLUTAB FEEDTUBE SCH (10:31)
[2020-03-21] MEDS: levETIRAcetam 500 MG/5 ML ORAL LIQD PO SCH ×2 (10:31→21:44)
[2020-03-21] MEDS: METOPROLOL TARTRATE 25 MG TAB PO SCH ×2 (10:33→21:43)
--- NOTE | 2020-03-21 10:54 | Progress Note ---
Assessment and Plan Acute cardiopulmonary arrest with ROSC Acute hypoxemic respiratory failure s/p MVS s/p Tracheostomy- decannulated Oropharyngeal dysphagia s/p PEG MRSA Bacteremia- treated MRSA pneumonia-treated Acute [id number] encephalopathy Metabolic acidosis/alcoholic acidosis/Lactic acidosis( resolved) Ischemic hepatitis Erythrocytosis Tobacco use disorder Alcohol use Disorder PT/OT, increase activity Aspiration precautions Continue all supportive care Fall precautions, remains impulsive Discharge planning -CBC, BMP prn -CXR, ABG prn -Continue contact isolation for MRSA -Supportive transfusions as indicated for HgB <7g/dL -Continue aspiration precautions, HOB>40 -Continue enteric nutritional support at goal rate. -Continue to monitor glycemic control, with target blood glucose 140-180 mg/dL -Avoid hypoglycemia - Continue to wean supplemental oxygen for target O2 sats > 90% -Continue thiamine, multivitamin and electrolyte replacement -Continue to avoid nephrotoxins, adjust all medications for GFR and CrCL - Continue bronchodilators with pulmonary hygiene - Continue to maintain of sleep-wake cycle, avoid delirium - Continue mobility protocol and skin assessment per protocol for pressure ulcer prevention - Continue to monitor for clinical seizures - continue other care per attending / other consultants CONDITION: FAIR PROGNOSIS: FAIR CODE STATUS: DNAR Subjective Date of service: 03/21/20 Principal diagnosis: Ac cardiopulmonary arrest; Ac hypoxemic resp failure; Acute encephalopathy Interval history: Patient is seen today for: Acute cardiopulmonary arrest with ROSC; Acute hypoxemic respiratory failure; Acute metabolic-toxic encephalopathy; Ischemic hepatitis; Leucocytosis with lactic acidosis; Tobacco use disorder; Alcohol use Disorder; s/p tracheostomy; s/p PEG Seen and examined at bedside; 24hour events reviewed; nursing and respiratory care staff consulted; no adverse overnight events reported to me; resting peacefully in bed; decanulated and is doing well from a respiratory standpoint Objective Vital Signs - 12hr 03/21/20 03/21/20 03/21/20 03:41 04:00 08:00 Temperature 98.1 F 98.0 F Pulse Rate Pulse Rate [ 104 H Anterior Bilateral Throughout] Respiratory 18 20 Rate Respiratory 18 Rate [Anterior Bilateral Throughout] Blood Pressure 134/96 128/86 03/21/20 10:33 Temperature Pulse Rate 106 H Pulse Rate [ Anterior Bilateral Throughout] Respiratory Rate Respiratory Rate [Anterior Bilateral Throughout] Blood Pressure 128/86 Constitutional: no acute distress, asleep, other (Agitating.) Eyes: non-icteric ENT: oropharynx moist, other (Patient decannulated.) Neck: supple, no lymphadenopathy, no JVD Effort: normal Ascultation: Bilateral: diminished breath sounds, rhonchi Percussion: Bilateral: not dull Cardiovascular: regular rate and rhythm (tachycardia), other (S1,S2) Gastrointestinal: normoactive bowel sounds, soft, non-tender, non-distended Integumentary: normal Extremities: no cyanosis, no edema, pulses normal, no ischemia or petechiae Neurologic: non-focal exam, pupils equal and round, CN II-XII normal Psychiatric: affect normal CBC and BMP: 03/12/20 04:53 03/13/20 03:50 ABG, PT/INR, D-dimer: ABG ABG pH 7.433 pH Units (7.350-7.450) 03/08/20 13:25 ABG pCO2 40.2 mm Hg 03/08/20 13:25 ABG pO2 71.1 mm Hg (80.0-90.0) L 03/08/20 13:25 ABG O2 Saturation 97.0 % (95.0-99.0) 03/08/20 13:25 PT/INR, D-dimer PT 17.0 Sec. (12.2-14.9) H 11/23/19 03:47 INR 1.36 (0.87-1.13) H 11/23/19 03:47 Abnormal lab findings: Abnormal Labs 11/22/19 11/22/19 11/22/19 23:17 23:18 23:27 WBC 21.2 H RBC 3.59 L Hgb 9.8 L Hct MCH 27 L RDW 18.6 H Plt Count 454 H Lymph % (Auto) [place] % (Auto) [place] # Baso # Seg Neutrophils % Seg Neuts % (Manual) 86.0 H Lymphocytes % (Manual) 9.0 L Monocytes % (Manual) Seg Neutrophils # Seg Neutrophils # Man 18.2 H Lymphocytes # (Manual) Monocytes # (Manual) 1.1 H Eosinophils # (Manual) Basophils # (Manual) PT INR APTT ABG pH ABG pO2 ABG HCO3 ABG O2 Saturation ABG Base Excess ABG Hemoglobin Oxyhemoglobin Sodium Potassium Chloride Carbon Dioxide BUN Creatinine Glucose POC Glucose 53 L Lactic Acid Calcium Ionized Calcium Phosphorus Magnesium Total Bilirubin AST ALT Alkaline Phosphatase Ammonia Total Creatine Kinase CK-MB (CK-2) CK-MB (CK-2) Rel Index Total Protein Albumin Urine WBC (Auto) 40.0 H Vancomycin Trough Salicylates Acetaminophen Plasma/Serum Alcohol Crossmatch 11/22/19 11/22/19 11/22/19 23:27 23:27 23:27 WBC RBC Hgb Hct MCH RDW Plt Count Lymph % (Auto) [place] % (Auto) [place] # Baso # Seg Neutrophils % Seg Neuts % (Manual) Lymphocytes % (Manual) Monocytes % (Manual) Seg Neutrophils # Seg Neutrophils # Man Lymphocytes # (Manual) Monocytes # (Manual) Eosinophils # (Manual) Basophils # (Manual) PT INR APTT ABG pH ABG pO2 ABG HCO3 ABG O2 Saturation ABG Base Excess ABG Hemoglobin Oxyhemoglobin Sodium Potassium 2.4 L* Chloride 85.1 L Carbon Dioxide 19 L BUN Creatinine 0.5 L Glucose 261 H POC Glucose Lactic Acid Calcium Ionized Calcium Phosphorus Magnesium Total Bilirubin AST 609 H ALT 152 H Alkaline Phosphatase 160 H Ammonia 117.0 H Total Creatine Kinase 139 H CK-MB (CK-2) 8.3 H CK-MB (CK-2) Rel Index 5.9 H Total Protein Albumin 3.6 L Urine WBC (Auto) Vancomycin Trough Salicylates < 0.3 L Acetaminophen Plasma/Serum Alcohol Crossmatch 11/22/19 11/22/19 11/23/19 23:27 23:27 01:10 WBC RBC Hgb Hct MCH RDW Plt Count Lymph % (Auto) [place] % (Auto) [place] # Baso # Seg Neutrophils % Seg Neuts % (Manual) Lymphocytes % (Manual) Monocytes % (Manual) Seg Neutrophils # Seg Neutrophils # Man Lymphocytes # (Manual) Monocytes # (Manual) Eosinophils # (Manual) Basophils # (Manual) PT INR APTT ABG pH 7.273 L ABG pO2 209.7 H ABG HCO3 ABG O2 Saturation 99.2 H ABG Base Excess -3.9 L ABG Hemoglobin 10.6 L Oxyhemoglobin 93.9 L Sodium Potassium Chloride Carbon Dioxide BUN Creatinine Glucose POC Glucose Lactic Acid Calcium Ionized Calcium Phosphorus Magnesium Total Bilirubin AST ALT Alkaline Phosphatase Ammonia Total Creatine Kinase CK-MB (CK-2) CK-MB (CK-2) Rel Index Total Protein Albumin Urine WBC (Auto) Vancomycin Trough Salicylates Acetaminophen < 5.0 L Plasma/Serum Alcohol 0.08 H Crossmatch 03/06/20 03/06/20 03/06/20 01:19 01:19 03:47 WBC RBC Hgb Hct MCH RDW Plt Count Lymph % (Auto) [place] % (Auto) [place] # Baso # Seg Neutrophils % Seg Neuts % (Manual) Lymphocytes % (Manual) Monocytes % (Manual) Seg Neutrophils # Seg Neutrophils # Man Lymphocytes # (Manual) Monocytes # (Manual) Eosinophils # (Manual) Basophils # (Manual) PT 16.3 H INR 1.29 H APTT ABG pH ABG pO2 ABG HCO3 ABG O2 Saturation ABG Base Excess ABG Hemoglobin Oxyhemoglobin Sodium Potassium Chloride Carbon Dioxide BUN Creatinine Glucose POC Glucose Lactic Acid 2.10 H* 5.00 H* Calcium Ionized Calcium Phosphorus Magnesium Total Bilirubin AST ALT Alkaline Phosphatase Ammonia Total Creatine Kinase CK-MB (CK-2) CK-MB (CK-2) Rel Index Total Protein Albumin Urine WBC (Auto) Vancomycin Trough Salicylates Acetaminophen Plasma/Serum Alcohol Crossmatch 11/23/19 11/23/19 11/23/19 03:47 03:47 04:53 WBC RBC Hgb 9.4 L Hct MCH RDW Plt Count Lymph % (Auto) [place] % (Auto) [place] # Baso # Seg Neutrophils % Seg Neuts % (Manual) Lymphocytes % (Manual) Monocytes % (Manual) Seg Neutrophils # Seg Neutrophils # Man Lymphocytes # (Manual) Monocytes # (Manual) Eosinophils # (Manual) Basophils # (Manual) PT 17.0 H INR 1.36 H APTT 128.2 H* ABG pH ABG pO2 ABG HCO3 ABG O2 Saturation ABG Base Excess ABG Hemoglobin Oxyhemoglobin Sodium Potassium Chloride Carbon Dioxide 18 L BUN Creatinine 0.5 L Glucose 105 H POC Glucose Lactic Acid Calcium 8.3 L Ionized Calcium Phosphorus 2.40 L Magnesium Total Bilirubin 1.30 H AST 761 H ALT 158 H Alkaline Phosphatase 143 H Ammonia Total Creatine Kinase CK-MB (CK-2) CK-MB (CK-2) Rel Index Total Protein Albumin 2.8 L Urine WBC (Auto) Vancomycin Trough Salicylates Acetaminophen Plasma/Serum Alcohol Crossmatch 11/23/19 11/23/19 11/23/19 05:12 06:32 06:32 WBC 16.8 H RBC 3.31 L Hgb 8.9 L Hct 28.7 L MCH 27 L RDW 18.6 H Plt Count Lymph % (Auto) [place] % (Auto) [place] # Baso # Seg Neutrophils % Seg Neuts % (Manual) 94.0 H Lymphocytes % (Manual) 1.0 L Monocytes % (Manual) Seg Neutrophils # Seg Neutrophils # Man 15.8 H Lymphocytes # (Manual) 0.2 L Monocytes # (Manual) Eosinophils # (Manual) Basophils # (Manual) PT INR APTT ABG pH ABG pO2 ABG HCO3 ABG O2 Saturation ABG Base Excess -3.2 L ABG Hemoglobin 9.0 L Oxyhemoglobin 93.6 L Sodium Potassium Chloride Carbon Dioxide BUN Creatinine Glucose POC Glucose Lactic Acid Calcium Ionized Calcium 4.5 L Phosphorus Magnesium Total Bilirubin AST ALT Alkaline Phosphatase Ammonia Total Creatine Kinase CK-MB (CK-2) CK-MB (CK-2) Rel Index Total Protein Albumin Urine WBC (Auto) Vancomycin Trough Salicylates Acetaminophen Plasma/Serum Alcohol Crossmatch 11/23/19 11/24/19 11/24/19 06:32 04:35 04:35 WBC RBC Hgb Hct MCH RDW Plt Count Lymph % (Auto) [place] % (Auto) [place] # Baso # Seg Neutrophils % Seg Neuts % (Manual) Lymphocytes % (Manual) Monocytes % (Manual) Seg Neutrophils # Seg Neutrophils # Man Lymphocytes # (Manual) Monocytes # (Manual) Eosinophils # (Manual) Basophils # (Manual) PT INR APTT ABG pH ABG pO2 ABG HCO3 ABG O2 Saturation ABG Base Excess ABG Hemoglobin Oxyhemoglobin Sodium Potassium Chloride Carbon Dioxide BUN Creatinine Glucose POC Glucose Lactic Acid 3.30 H* Calcium Ionized Calcium Phosphorus Magnesium 1.40 L Total Bilirubin AST ALT Alkaline Phosphatase Ammonia 98.0 H Total Creatine Kinase CK-MB (CK-2) CK-MB (CK-2) Rel Index Total Protein Albumin Urine WBC (Auto) Vancomycin Trough Salicylates Acetaminophen Plasma/Serum Alcohol Crossmatch 11/24/19 11/25/19 11/25/19 05:22 04:34 05:05 WBC 17.3 H RBC 2.88 L Hgb 7.8 L Hct 24.6 L MCH 27 L RDW 18.5 H Plt Count Lymph % (Auto) 7.7 L [place] % (Auto) 9.7 H [place] # 1.7 H Baso # Seg Neutrophils % 82.2 H Seg Neuts % (Manual) Lymphocytes % (Manual) Monocytes % (Manual) Seg Neutrophils # 14.2 H Seg Neutrophils # Man Lymphocytes # (Manual) Monocytes # (Manual) Eosinophils # (Manual) Basophils # (Manual) PT INR APTT ABG pH 7.475 H ABG pO2 ABG HCO3 29.4 H 32.3 H ABG O2 Saturation ABG Base Excess 5.4 H 6.9 H ABG Hemoglobin 9.0 L 10.6 L Oxyhemoglobin 94.3 L Sodium Potassium Chloride Carbon Dioxide BUN Creatinine Glucose POC Glucose Lactic Acid Calcium Ionized Calcium Phosphorus Magnesium Total Bilirubin AST ALT Alkaline Phosphatase Ammonia Total Creatine Kinase CK-MB (CK-2) CK-MB (CK-2) Rel Index Total Protein Albumin Urine WBC (Auto) Vancomycin Trough Salicylates Acetaminophen Plasma/Serum Alcohol Crossmatch 11/25/19 11/25/19 11/26/19 05:05 22:46 03:31 WBC RBC Hgb Hct MCH RDW Plt Count Lymph % (Auto) [place] % (Auto) [place] # Baso # Seg Neutrophils % Seg Neuts % (Manual) Lymphocytes % (Manual) Monocytes % (Manual) Seg Neutrophils # Seg Neutrophils # Man Lymphocytes # (Manual) Monocytes # (Manual) Eosinophils # (Manual) Basophils # (Manual) PT INR APTT ABG pH 7.459 H ABG pO2 ABG HCO3 34.2 H ABG O2 Saturation ABG Base Excess 9.4 H ABG Hemoglobin 7.6 L Oxyhemoglobin 94.8 L Sodium 152 H D 147 H Potassium 2.3 L* D 2.8 L* D Chloride 107.8 H Carbon Dioxide 31 H D 33 H BUN Creatinine 0.6 L 0.6 L Glucose 148 H 177 H POC Glucose Lactic Acid Calcium Ionized Calcium Phosphorus Magnesium Total Bilirubin AST 105 H ALT 71 H Alkaline Phosphatase 155 H Ammonia Total Creatine Kinase CK-MB (CK-2) CK-MB (CK-2) Rel Index Total Protein 5.2 L D Albumin 2.9 L Urine WBC (Auto) Vancomycin Trough Salicylates Acetaminophen Plasma/Serum Alcohol Crossmatch 11/26/19 11/26/19 11/27/19 08:24 08:24 04:20 WBC 12.0 H RBC 3.00 L Hgb 8.0 L 9.3 L Hct 25.9 L 29.7 L MCH 27 L RDW 18.5 H Plt Count Lymph % (Auto) [place] % (Auto) [place] # Baso # Seg Neutrophils % Seg Neuts % (Manual) 89.0 H Lymphocytes % (Manual) 4.0 L Monocytes % (Manual) Seg Neutrophils # Seg Neutrophils # Man 10.7 H Lymphocytes # (Manual) 0.5 L Monocytes # (Manual) Eosinophils # (Manual) Basophils # (Manual) PT INR APTT ABG pH ABG pO2 ABG HCO3 ABG O2 Saturation ABG Base Excess ABG Hemoglobin Oxyhemoglobin Sodium 146 H Potassium 3.4 L D Chloride Carbon Dioxide BUN Creatinine 0.5 L Glucose 165 H POC Glucose Lactic Acid Calcium Ionized Calcium Phosphorus Magnesium Total Bilirubin AST 57 H ALT Alkaline Phosphatase 166 H Ammonia Total Creatine Kinase CK-MB (CK-2) CK-MB (CK-2) Rel Index Total Protein Albumin 2.9 L Urine WBC (Auto) Vancomycin Trough Salicylates Acetaminophen Plasma/Serum Alcohol Crossmatch 11/27/19 11/27/19 11/27/19 04:28 04:28 04:42 WBC RBC Hgb Hct MCH RDW Plt Count Lymph % (Auto) [place] % (Auto) [place] # Baso # Seg Neutrophils % Seg Neuts % (Manual) Lymphocytes % (Manual) Monocytes % (Manual) Seg Neutrophils # Seg Neutrophils # Man Lymphocytes # (Manual) Monocytes # (Manual) Eosinophils # (Manual) Basophils # (Manual) PT INR APTT ABG pH 7.470 H ABG pO2 74.0 L ABG HCO3 33.8 H ABG O2 Saturation ABG Base Excess 9.1 H ABG Hemoglobin 8.7 L Oxyhemoglobin 94.7 L Sodium 146 H Potassium 2.9 L* Chloride Carbon Dioxide BUN 25 H Creatinine Glucose 213 H POC Glucose Lactic Acid Calcium Ionized Calcium Phosphorus 1.00 L Magnesium Total Bilirubin AST ALT Alkaline Phosphatase Ammonia Total Creatine Kinase CK-MB (CK-2) CK-MB (CK-2) Rel Index Total Protein Albumin Urine WBC (Auto) Vancomycin Trough Salicylates Acetaminophen Plasma/Serum Alcohol Crossmatch 11/27/19 11/27/19 11/27/19 05:37 12:20 15:46 WBC RBC Hgb Hct MCH RDW Plt Count Lymph % (Auto) [place] % (Auto) [place] # Baso # Seg Neutrophils % Seg Neuts % (Manual) Lymphocytes % (Manual) Monocytes % (Manual) Seg Neutrophils # Seg Neutrophils # Man Lymphocytes # (Manual) Monocytes # (Manual) Eosinophils # (Manual) Basophils # (Manual) PT INR APTT ABG pH ABG pO2 ABG HCO3 ABG O2 Saturation ABG Base Excess ABG Hemoglobin Oxyhemoglobin Sodium 146 H Potassium 3.5 L D Chloride Carbon Dioxide BUN 24 H Creatinine 0.6 L Glucose 187 H POC Glucose 117 H 220 H Lactic Acid Calcium Ionized Calcium Phosphorus Magnesium Total Bilirubin AST ALT Alkaline Phosphatase Ammonia Total Creatine Kinase CK-MB (CK-2) CK-MB (CK-2) Rel Index Total Protein Albumin Urine WBC (Auto) Vancomycin Trough Salicylates Acetaminophen Plasma/Serum Alcohol Crossmatch 11/27/19 11/28/19 11/28/19 17:28 05:00 05:02 WBC RBC Hgb Hct MCH RDW Plt Count Lymph % (Auto) [place] % (Auto) [place] # Baso # Seg Neutrophils % Seg Neuts % (Manual) Lymphocytes % (Manual) Monocytes % (Manual) Seg Neutrophils # Seg Neutrophils # Man Lymphocytes # (Manual) Monocytes # (Manual) Eosinophils # (Manual) Basophils # (Manual) PT INR APTT ABG pH ABG pO2 72.4 L ABG HCO3 33.6 H ABG O2 Saturation 94.1 L ABG Base Excess 7.3 H ABG Hemoglobin Oxyhemoglobin 91.8 L Sodium 146 H Potassium 3.3 L Chloride Carbon Dioxide BUN 25 H Creatinine 0.6 L Glucose 176 H POC Glucose 198 H Lactic Acid Calcium Ionized Calcium Phosphorus Magnesium Total Bilirubin AST ALT Alkaline Phosphatase Ammonia Total Creatine Kinase CK-MB (CK-2) CK-MB (CK-2) Rel Index Total Protein Albumin Urine WBC (Auto) Vancomycin Trough Salicylates Acetaminophen Plasma/Serum Alcohol Crossmatch 11/28/19 11/28/19 11/29/19 05:02 18:55 10:43 WBC 15.2 H 19.0 H RBC 3.06 L 3.01 L Hgb 8.3 L 8.3 L Hct 27.0 L 26.4 L MCH 27 L RDW 19.0 H 19.7 H Plt Count 479 H 611 H Lymph % (Auto) [place] % (Auto) [place] # Baso # Seg Neutrophils % Seg Neuts % (Manual) 92.0 H Lymphocytes % (Manual) 2.0 L Monocytes % (Manual) Seg Neutrophils # Seg Neutrophils # Man 14.0 H Lymphocytes # (Manual) 0.3 L Monocytes # (Manual) Eosinophils # (Manual) Basophils # (Manual) PT INR APTT ABG pH ABG pO2 ABG HCO3 ABG O2 Saturation ABG Base Excess ABG Hemoglobin Oxyhemoglobin Sodium Potassium Chloride Carbon Dioxide BUN Creatinine Glucose POC Glucose 138 H Lactic Acid Calcium Ionized Calcium Phosphorus Magnesium Total Bilirubin AST ALT Alkaline Phosphatase Ammonia Total Creatine Kinase CK-MB (CK-2) CK-MB (CK-2) Rel Index Total Protein Albumin Urine WBC (Auto) Vancomycin Trough Salicylates Acetaminophen Plasma/Serum Alcohol Crossmatch 11/29/19 11/29/19 11/29/19 10:43 12:27 19:25 WBC RBC Hgb Hct MCH RDW Plt Count Lymph % (Auto) [place] % (Auto) [place] # Baso # Seg Neutrophils % Seg Neuts % (Manual) Lymphocytes % (Manual) Monocytes % (Manual) Seg Neutrophils # Seg Neutrophils # Man Lymphocytes # (Manual) Monocytes # (Manual) Eosinophils # (Manual) Basophils # (Manual) PT INR APTT ABG pH ABG pO2 ABG HCO3 ABG O2 Saturation ABG Base Excess ABG Hemoglobin Oxyhemoglobin Sodium Potassium 2.8 L* Chloride Carbon Dioxide BUN 20 H Creatinine 0.5 L Glucose 121 H POC Glucose 128 H 120 H Lactic Acid Calcium Ionized Calcium Phosphorus Magnesium Total Bilirubin AST ALT Alkaline Phosphatase Ammonia Total Creatine Kinase CK-MB (CK-2) CK-MB (CK-2) Rel Index Total Protein Albumin Urine WBC (Auto) Vancomycin Trough Salicylates Acetaminophen Plasma/Serum Alcohol Crossmatch 11/29/19 11/30/19 11/30/19 23:46 04:10 05:02 WBC RBC Hgb Hct MCH RDW Plt Count Lymph % (Auto) [place] % (Auto) [place] # Baso # Seg Neutrophils % Seg Neuts % (Manual) Lymphocytes % (Manual) Monocytes % (Manual) Seg Neutrophils # Seg Neutrophils # Man Lymphocytes # (Manual) Monocytes # (Manual) Eosinophils # (Manual) Basophils # (Manual) PT INR APTT ABG pH ABG pO2 76.3 L ABG HCO3 32.5 H ABG O2 Saturation ABG Base Excess 6.9 H ABG Hemoglobin 8.0 L Oxyhemoglobin 92.6 L Sodium Potassium Chloride Carbon Dioxide BUN Creatinine Glucose POC Glucose 116 H 128 H Lactic Acid Calcium Ionized Calcium Phosphorus Magnesium Total Bilirubin AST ALT Alkaline Phosphatase Ammonia Total Creatine Kinase CK-MB (CK-2) CK-MB (CK-2) Rel Index Total Protein Albumin Urine WBC (Auto) Vancomycin Trough Salicylates Acetaminophen Plasma/Serum Alcohol Crossmatch 11/30/19 11/30/19 11/30/19 05:25 05:25 12:59 WBC 18.4 H RBC 3.10 L Hgb 8.5 L Hct 27.5 L MCH 27 L RDW 20.9 H Plt Count 691 H Lymph % (Auto) 7.1 L [place] % (Auto) 7.7 H [place] # 1.4 H Baso # Seg Neutrophils % 83.4 H Seg Neuts % (Manual) Lymphocytes % (Manual) Monocytes % (Manual) Seg Neutrophils # 15.4 H Seg Neutrophils # Man Lymphocytes # (Manual) Monocytes # (Manual) Eosinophils # (Manual) Basophils # (Manual) PT INR APTT ABG pH ABG pO2 ABG HCO3 ABG O2 Saturation ABG Base Excess ABG Hemoglobin Oxyhemoglobin Sodium 146 H Potassium Chloride 107.2 H Carbon Dioxide BUN Creatinine 0.5 L Glucose 132 H POC Glucose 124 H Lactic Acid Calcium Ionized Calcium Phosphorus Magnesium Total Bilirubin AST 246 H ALT 274 H Alkaline Phosphatase 203 H Ammonia Total Creatine Kinase CK-MB (CK-2) CK-MB (CK-2) Rel Index Total Protein 5.4 L Albumin 2.9 L Urine WBC (Auto) Vancomycin Trough Salicylates Acetaminophen Plasma/Serum Alcohol Crossmatch 11/30/19 12/01/19 12/01/19 17:53 00:05 05:10 WBC RBC Hgb Hct MCH RDW Plt Count Lymph % (Auto) [place] % (Auto) [place] # Baso # Seg Neutrophils % Seg Neuts % (Manual) Lymphocytes % (Manual) Monocytes % (Manual) Seg Neutrophils # Seg Neutrophils # Man Lymphocytes # (Manual) Monocytes # (Manual) Eosinophils # (Manual) Basophils # (Manual) PT INR APTT ABG pH ABG pO2 ABG HCO3 ABG O2 Saturation ABG Base Excess ABG Hemoglobin Oxyhemoglobin Sodium Potassium Chloride Carbon Dioxide BUN Creatinine Glucose POC Glucose 113 H 143 H 145 H Lactic Acid Calcium Ionized Calcium Phosphorus Magnesium Total Bilirubin AST ALT Alkaline Phosphatase Ammonia Total Creatine Kinase CK-MB (CK-2) CK-MB (CK-2) Rel Index Total Protein Albumin Urine WBC (Auto) Vancomycin Trough Salicylates Acetaminophen Plasma/Serum Alcohol Crossmatch 12/01/19 12/01/19 12/01/19 05:33 08:23 08:23 WBC 22.7 H RBC 2.88 L Hgb 7.9 L Hct 25.2 L MCH 27 L RDW 21.0 H Plt Count 732 H Lymph % (Auto) [place] % (Auto) [place] # Baso # Seg Neutrophils % Seg Neuts % (Manual) 91.0 H Lymphocytes % (Manual) 3.0 L Monocytes % (Manual) Seg Neutrophils # Seg Neutrophils # Man 20.7 H Lymphocytes # (Manual) 0.7 L Monocytes # (Manual) 1.1 H Eosinophils # (Manual) Basophils # (Manual) PT INR APTT ABG pH ABG pO2 68.6 L ABG HCO3 34.1 H ABG O2 Saturation ABG Base Excess 9.0 H ABG Hemoglobin 6.5 L Oxyhemoglobin 94.7 L Sodium Potassium Chloride Carbon Dioxide BUN Creatinine 0.5 L Glucose 125 H POC Glucose Lactic Acid Calcium Ionized Calcium Phosphorus Magnesium Total Bilirubin AST ALT Alkaline Phosphatase Ammonia Total Creatine Kinase CK-MB (CK-2) CK-MB (CK-2) Rel Index Total Protein Albumin Urine WBC (Auto) Vancomycin Trough Salicylates Acetaminophen Plasma/Serum Alcohol Crossmatch 12/01/19 12/01/19 12/01/19 13:21 17:54 20:59 WBC RBC Hgb Hct MCH RDW Plt Count Lymph % (Auto) [place] % (Auto) [place] # Baso # Seg Neutrophils % Seg Neuts % (Manual) Lymphocytes % (Manual) Monocytes % (Manual) Seg Neutrophils # Seg Neutrophils # Man Lymphocytes # (Manual) Monocytes # (Manual) Eosinophils # (Manual) Basophils # (Manual) PT INR APTT ABG pH ABG pO2 78.3 L ABG HCO3 33.8 H ABG O2 Saturation 94.9 L ABG Base Excess 7.9 H ABG Hemoglobin 11.5 L Oxyhemoglobin 92.3 L Sodium Potassium Chloride Carbon Dioxide BUN Creatinine Glucose POC Glucose 111 H 115 H Lactic Acid Calcium Ionized Calcium Phosphorus Magnesium Total Bilirubin AST ALT Alkaline Phosphatase Ammonia Total Creatine Kinase CK-MB (CK-2) CK-MB (CK-2) Rel Index Total Protein Albumin Urine WBC (Auto) Vancomycin Trough Salicylates Acetaminophen Plasma/Serum Alcohol Crossmatch 12/02/19 12/03/19 12/04/19 12:55 20:00 04:26 WBC 15.2 H RBC 2.69 L Hgb 7.4 L Hct 23.6 L MCH 27 L RDW 19.9 H Plt Count 838 H Lymph % (Auto) [place] % (Auto) [place] # Baso # Seg Neutrophils % Seg Neuts % (Manual) Lymphocytes % (Manual) Monocytes % (Manual) Seg Neutrophils # Seg Neutrophils # Man Lymphocytes # (Manual) Monocytes # (Manual) Eosinophils # (Manual) Basophils # (Manual) PT INR APTT ABG pH ABG pO2 68.3 L ABG HCO3 33.5 H ABG O2 Saturation 93.5 L ABG Base Excess 8.4 H ABG Hemoglobin 7.3 L Oxyhemoglobin 90.9 L Sodium Potassium Chloride Carbon Dioxide BUN Creatinine Glucose POC Glucose 107 H Lactic Acid Calcium Ionized Calcium Phosphorus Magnesium Total Bilirubin AST ALT Alkaline Phosphatase Ammonia Total Creatine Kinase CK-MB (CK-2) CK-MB (CK-2) Rel Index Total Protein Albumin Urine WBC (Auto) Vancomycin Trough Salicylates Acetaminophen Plasma/Serum Alcohol Crossmatch 12/04/19 12/04/19 12/04/19 04:26 07:45 12:02 WBC 15.9 H RBC 2.88 L Hgb 7.9 L Hct 25.1 L MCH RDW 20.4 H Plt Count 839 H Lymph % (Auto) 11.3 L [place] % (Auto) 15.2 H [place] # 2.4 H Baso # Seg Neutrophils % 72.4 H Seg Neuts % (Manual) Lymphocytes % (Manual) Monocytes % (Manual) Seg Neutrophils # 11.5 H Seg Neutrophils # Man Lymphocytes # (Manual) Monocytes # (Manual) Eosinophils # (Manual) Basophils # (Manual) PT INR APTT ABG pH ABG pO2 ABG HCO3 ABG O2 Saturation ABG Base Excess ABG Hemoglobin Oxyhemoglobin Sodium Potassium Chloride 96.5 L Carbon Dioxide BUN 21 H Creatinine 0.6 L Glucose 107 H POC Glucose 138 H Lactic Acid Calcium Ionized Calcium Phosphorus Magnesium Total Bilirubin AST ALT Alkaline Phosphatase Ammonia Total Creatine Kinase CK-MB (CK-2) CK-MB (CK-2) Rel Index Total Protein Albumin Urine WBC (Auto) Vancomycin Trough Salicylates Acetaminophen Plasma/Serum Alcohol Crossmatch 12/04/19 12/05/19 12/05/19 18:16 11:55 18:36 WBC RBC Hgb Hct MCH RDW Plt Count Lymph % (Auto) [place] % (Auto) [place] # Baso # Seg Neutrophils % Seg Neuts % (Manual) Lymphocytes % (Manual) Monocytes % (Manual) Seg Neutrophils # Seg Neutrophils # Man Lymphocytes # (Manual) Monocytes # (Manual) Eosinophils # (Manual) Basophils # (Manual) PT INR APTT ABG pH ABG pO2 ABG HCO3 ABG O2 Saturation ABG Base Excess ABG Hemoglobin Oxyhemoglobin Sodium Potassium Chloride Carbon Dioxide BUN Creatinine Glucose POC Glucose 135 H 125 H 135 H Lactic Acid Calcium Ionized Calcium Phosphorus Magnesium Total Bilirubin AST ALT Alkaline Phosphatase Ammonia Total Creatine Kinase CK-MB (CK-2) CK-MB (CK-2) Rel Index Total Protein Albumin Urine WBC (Auto) Vancomycin Trough Salicylates Acetaminophen Plasma/Serum Alcohol Crossmatch 12/05/19 12/06/19 12/06/19 23:30 04:14 05:43 WBC RBC Hgb Hct MCH RDW Plt Count Lymph % (Auto) [place] % (Auto) [place] # Baso # Seg Neutrophils % Seg Neuts % (Manual) Lymphocytes % (Manual) Monocytes % (Manual) Seg Neutrophils # Seg Neutrophils # Man Lymphocytes # (Manual) Monocytes # (Manual) Eosinophils # (Manual) Basophils # (Manual) PT INR APTT ABG pH ABG pO2 ABG HCO3 ABG O2 Saturation ABG Base Excess ABG Hemoglobin Oxyhemoglobin Sodium Potassium 5.6 H Chloride 95.0 L Carbon Dioxide BUN 48 H Creatinine 1.3 H D Glucose POC Glucose 126 H 121 H Lactic Acid Calcium Ionized Calcium Phosphorus Magnesium Total Bilirubin AST 89 H ALT 98 H Alkaline Phosphatase 476 H Ammonia Total Creatine Kinase CK-MB (CK-2) CK-MB (CK-2) Rel Index Total Protein Albumin 2.8 L Urine WBC (Auto) Vancomycin Trough Salicylates Acetaminophen Plasma/Serum Alcohol Crossmatch 12/06/19 12/06/19 12/07/19 10:39 14:34 00:19 WBC 17.3 H RBC 2.60 L Hgb 7.1 L Hct 22.7 L MCH 27 L RDW 20.1 H Plt Count 832 H Lymph % (Auto) [place] % (Auto) [place] # Baso # Seg Neutrophils % Seg Neuts % (Manual) Lymphocytes % (Manual) Monocytes % (Manual) Seg Neutrophils # Seg Neutrophils # Man Lymphocytes # (Manual) Monocytes # (Manual) Eosinophils # (Manual) Basophils # (Manual) PT INR APTT ABG pH ABG pO2 ABG HCO3 ABG O2 Saturation ABG Base Excess ABG Hemoglobin Oxyhemoglobin Sodium Potassium Chloride Carbon Dioxide BUN Creatinine Glucose POC Glucose 128 H 136 H Lactic Acid Calcium Ionized Calcium Phosphorus Magnesium Total Bilirubin AST ALT Alkaline Phosphatase Ammonia Total Creatine Kinase CK-MB (CK-2) CK-MB (CK-2) Rel Index Total Protein Albumin Urine WBC (Auto) Vancomycin Trough Salicylates Acetaminophen Plasma/Serum Alcohol Crossmatch 12/07/19 12/07/19 12/07/19 03:44 03:44 05:53 WBC 16.2 H RBC 2.56 L Hgb 7.1 L Hct 22.3 L MCH RDW 19.4 H Plt Count 782 H Lymph % (Auto) [place] % (Auto) [place] # Baso # Seg Neutrophils % Seg Neuts % (Manual) Lymphocytes % (Manual) Monocytes % (Manual) Seg Neutrophils # Seg Neutrophils # Man Lymphocytes # (Manual) Monocytes # (Manual) Eosinophils # (Manual) Basophils # (Manual) PT INR APTT ABG pH ABG pO2 ABG HCO3 ABG O2 Saturation ABG Base Excess ABG Hemoglobin Oxyhemoglobin Sodium Potassium Chloride 95.6 L Carbon Dioxide BUN 56 H Creatinine 1.4 H Glucose 120 H POC Glucose 128 H Lactic Acid Calcium 10.3 H Ionized Calcium Phosphorus Magnesium Total Bilirubin AST ALT Alkaline Phosphatase Ammonia Total Creatine Kinase CK-MB (CK-2) CK-MB (CK-2) Rel Index Total Protein Albumin Urine WBC (Auto) Vancomycin Trough Salicylates Acetaminophen Plasma/Serum Alcohol Crossmatch 12/07/19 12/07/19 12/08/19 12:54 23:47 00:20 WBC RBC Hgb Hct MCH RDW Plt Count Lymph % (Auto) [place] % (Auto) [place] # Baso # Seg Neutrophils % Seg Neuts % (Manual) Lymphocytes % (Manual) Monocytes % (Manual) Seg Neutrophils # Seg Neutrophils # Man Lymphocytes # (Manual) Monocytes # (Manual) Eosinophils # (Manual) Basophils # (Manual) PT INR APTT ABG pH ABG pO2 ABG HCO3 ABG O2 Saturation ABG Base Excess ABG Hemoglobin Oxyhemoglobin Sodium Potassium Chloride Carbon Dioxide BUN Creatinine Glucose POC Glucose 128 H 130 H 124 H Lactic Acid Calcium Ionized Calcium Phosphorus Magnesium Total Bilirubin AST ALT Alkaline Phosphatase Ammonia Total Creatine Kinase CK-MB (CK-2) CK-MB (CK-2) Rel Index Total Protein Albumin Urine WBC (Auto) Vancomycin Trough Salicylates Acetaminophen Plasma/Serum Alcohol Crossmatch 12/08/19 12/08/19 12/08/19 06:38 12:04 18:26 WBC RBC Hgb Hct MCH RDW Plt Count Lymph % (Auto) [place] % (Auto) [place] # Baso # Seg Neutrophils % Seg Neuts % (Manual) Lymphocytes % (Manual) Monocytes % (Manual) Seg Neutrophils # Seg Neutrophils # Man Lymphocytes # (Manual) Monocytes # (Manual) Eosinophils # (Manual) Basophils # (Manual) PT INR APTT ABG pH ABG pO2 ABG HCO3 ABG O2 Saturation ABG Base Excess ABG Hemoglobin Oxyhemoglobin Sodium Potassium Chloride Carbon Dioxide BUN Creatinine Glucose POC Glucose 137 H 129 H 150 H Lactic Acid Calcium Ionized Calcium Phosphorus Magnesium Total Bilirubin AST ALT Alkaline Phosphatase Ammonia Total Creatine Kinase CK-MB (CK-2) CK-MB (CK-2) Rel Index Total Protein Albumin Urine WBC (Auto) Vancomycin Trough Salicylates Acetaminophen Plasma/Serum Alcohol Crossmatch 12/09/19 12/09/19 12/09/19 00:56 05:34 06:13 WBC RBC Hgb Hct MCH RDW Plt Count Lymph % (Auto) [place] % (Auto) [place] # Baso # Seg Neutrophils % Seg Neuts % (Manual) Lymphocytes % (Manual) Monocytes % (Manual) Seg Neutrophils # Seg Neutrophils # Man Lymphocytes # (Manual) Monocytes # (Manual) Eosinophils # (Manual) Basophils # (Manual) PT INR APTT ABG pH ABG pO2 ABG HCO3 ABG O2 Saturation ABG Base Excess ABG Hemoglobin Oxyhemoglobin Sodium 146 H Potassium Chloride Carbon Dioxide BUN 66 H Creatinine 1.9 H Glucose 116 H POC Glucose 130 H 130 H Lactic Acid Calcium Ionized Calcium Phosphorus Magnesium Total Bilirubin AST ALT Alkaline Phosphatase Ammonia Total Creatine Kinase CK-MB (CK-2) CK-MB (CK-2) Rel Index Total Protein Albumin Urine WBC (Auto) Vancomycin Trough Salicylates Acetaminophen Plasma/Serum Alcohol Crossmatch 12/09/19 12/09/19 12/10/19 11:52 17:50 00:14 WBC RBC Hgb Hct MCH RDW Plt Count Lymph % (Auto) [place] % (Auto) [place] # Baso # Seg Neutrophils % Seg Neuts % (Manual) Lymphocytes % (Manual) Monocytes % (Manual) Seg Neutrophils # Seg Neutrophils # Man Lymphocytes # (Manual) Monocytes # (Manual) Eosinophils # (Manual) Basophils # (Manual) PT INR APTT ABG pH ABG pO2 ABG HCO3 ABG O2 Saturation ABG Base Excess ABG Hemoglobin Oxyhemoglobin Sodium Potassium Chloride Carbon Dioxide BUN Creatinine Glucose POC Glucose 135 H 120 H 116 H Lactic Acid Calcium Ionized Calcium Phosphorus Magnesium Total Bilirubin AST ALT Alkaline Phosphatase Ammonia Total Creatine Kinase CK-MB (CK-2) CK-MB (CK-2) Rel Index Total Protein Albumin Urine WBC (Auto) Vancomycin Trough Salicylates Acetaminophen Plasma/Serum Alcohol Crossmatch 12/10/19 12/10/19 12/10/19 05:38 11:38 17:34 WBC RBC Hgb Hct MCH RDW Plt Count Lymph % (Auto) [place] % (Auto) [place] # Baso # Seg Neutrophils % Seg Neuts % (Manual) Lymphocytes % (Manual) Monocytes % (Manual) Seg Neutrophils # Seg Neutrophils # Man Lymphocytes # (Manual) Monocytes # (Manual) Eosinophils # (Manual) Basophils # (Manual) PT INR APTT ABG pH ABG pO2 ABG HCO3 ABG O2 Saturation ABG Base Excess ABG Hemoglobin Oxyhemoglobin Sodium Potassium Chloride Carbon Dioxide BUN Creatinine Glucose POC Glucose 115 H 112 H 130 H Lactic Acid Calcium Ionized Calcium Phosphorus Magnesium Total Bilirubin AST ALT Alkaline Phosphatase Ammonia Total Creatine Kinase CK-MB (CK-2) CK-MB (CK-2) Rel Index Total Protein Albumin Urine WBC (Auto) Vancomycin Trough Salicylates Acetaminophen Plasma/Serum Alcohol Crossmatch 12/11/19 12/11/19 12/11/19 00:20 05:31 12:22 WBC RBC Hgb Hct MCH RDW Plt Count Lymph % (Auto) [place] % (Auto) [place] # Baso # Seg Neutrophils % Seg Neuts % (Manual) Lymphocytes % (Manual) Monocytes % (Manual) Seg Neutrophils # Seg Neutrophils # Man Lymphocytes # (Manual) Monocytes # (Manual) Eosinophils # (Manual) Basophils # (Manual) PT INR APTT ABG pH ABG pO2 ABG HCO3 ABG O2 Saturation ABG Base Excess ABG Hemoglobin Oxyhemoglobin Sodium Potassium Chloride Carbon Dioxide BUN Creatinine Glucose POC Glucose 124 H 132 H 128 H Lactic Acid Calcium Ionized Calcium Phosphorus Magnesium Total Bilirubin AST ALT Alkaline Phosphatase Ammonia Total Creatine Kinase CK-MB (CK-2) CK-MB (CK-2) Rel Index Total Protein Albumin Urine WBC (Auto) Vancomycin Trough Salicylates Acetaminophen Plasma/Serum Alcohol Crossmatch 12/11/19 12/11/19 12/12/19 18:04 23:42 03:51 WBC RBC Hgb Hct MCH RDW Plt Count Lymph % (Auto) [place] % (Auto) [place] # Baso # Seg Neutrophils % Seg Neuts % (Manual) Lymphocytes % (Manual) Monocytes % (Manual) Seg Neutrophils # Seg Neutrophils # Man Lymphocytes # (Manual) Monocytes # (Manual) Eosinophils # (Manual) Basophils # (Manual) PT INR APTT ABG pH ABG pO2 ABG HCO3 ABG O2 Saturation ABG Base Excess ABG Hemoglobin Oxyhemoglobin Sodium 149 H Potassium Chloride Carbon Dioxide 20 L D BUN 77 H Creatinine 2.8 H Glucose POC Glucose 133 H 154 H Lactic Acid Calcium Ionized Calcium Phosphorus Magnesium Total Bilirubin AST ALT Alkaline Phosphatase Ammonia Total Creatine Kinase CK-MB (CK-2) CK-MB (CK-2) Rel Index Total Protein Albumin Urine WBC (Auto) Vancomycin Trough Salicylates Acetaminophen Plasma/Serum Alcohol Crossmatch 12/12/19 12/12/19 12/12/19 05:18 05:26 10:30 WBC 18.0 H RBC 2.51 L Hgb 6.8 L Hct 22.0 L MCH 27 L RDW 19.9 H Plt Count 582 H Lymph % (Auto) [place] % (Auto) [place] # Baso # Seg Neutrophils % Seg Neuts % (Manual) Lymphocytes % (Manual) Monocytes % (Manual) Seg Neutrophils # Seg Neutrophils # Man Lymphocytes # (Manual) Monocytes # (Manual) Eosinophils # (Manual) Basophils # (Manual) PT INR APTT ABG pH ABG pO2 ABG HCO3 ABG O2 Saturation ABG Base Excess ABG Hemoglobin Oxyhemoglobin Sodium Potassium Chloride Carbon Dioxide BUN Creatinine Glucose POC Glucose 135 H Lactic Acid Calcium Ionized Calcium Phosphorus Magnesium Total Bilirubin AST ALT Alkaline Phosphatase Ammonia Total Creatine Kinase CK-MB (CK-2) CK-MB (CK-2) Rel Index Total Protein Albumin Urine WBC (Auto) Vancomycin Trough Salicylates Acetaminophen Plasma/Serum Alcohol Crossmatch See Detail 12/12/19 12/12/19 12/12/19 11:44 18:10 23:21 WBC RBC Hgb Hct MCH RDW Plt Count Lymph % (Auto) [place] % (Auto) [place] # Baso # Seg Neutrophils % Seg Neuts % (Manual) Lymphocytes % (Manual) Monocytes % (Manual) Seg Neutrophils # Seg Neutrophils # Man Lymphocytes # (Manual) Monocytes # (Manual) Eosinophils # (Manual) Basophils # (Manual) PT INR APTT ABG pH ABG pO2 ABG HCO3 ABG O2 Saturation ABG Base Excess ABG Hemoglobin Oxyhemoglobin Sodium Potassium Chloride Carbon Dioxide BUN Creatinine Glucose POC Glucose 108 H 107 H 126 H Lactic Acid Calcium Ionized Calcium Phosphorus Magnesium Total Bilirubin AST ALT Alkaline Phosphatase Ammonia Total Creatine Kinase CK-MB (CK-2) CK-MB (CK-2) Rel Index Total Protein Albumin Urine WBC (Auto) Vancomycin Trough Salicylates Acetaminophen Plasma/Serum Alcohol Crossmatch 12/13/19 12/13/19 12/13/19 05:41 07:48 07:48 WBC 38.3 H RBC 2.37 L Hgb 6.3 L Hct 20.9 L MCH 27 L RDW 20.2 H Plt Count 546 H Lymph % (Auto) [place] % (Auto) [place] # Baso # Seg Neutrophils % Seg Neuts % (Manual) 93.0 H Lymphocytes % (Manual) 1.0 L Monocytes % (Manual) Seg Neutrophils # Seg Neutrophils # Man 35.6 H Lymphocytes # (Manual) 0.4 L Monocytes # (Manual) Eosinophils # (Manual) Basophils # (Manual) 0.4 H PT INR APTT ABG pH ABG pO2 ABG HCO3 ABG O2 Saturation ABG Base Excess ABG Hemoglobin Oxyhemoglobin Sodium 152 H Potassium 3.1 L D Chloride 111.9 H Carbon Dioxide 21 L BUN 53 H Creatinine 1.9 H Glucose 141 H POC Glucose 128 H Lactic Acid Calcium Ionized Calcium Phosphorus Magnesium Total Bilirubin AST ALT Alkaline Phosphatase 316 H Ammonia Total Creatine Kinase CK-MB (CK-2) CK-MB (CK-2) Rel Index Total Protein Albumin 2.4 L Urine WBC (Auto) Vancomycin Trough Salicylates Acetaminophen Plasma/Serum Alcohol Crossmatch 12/13/19 12/13/19 12/14/19 18:17 23:19 05:36 WBC RBC Hgb Hct MCH RDW Plt Count Lymph % (Auto) [place] % (Auto) [place] # Baso # Seg Neutrophils % Seg Neuts % (Manual) Lymphocytes % (Manual) Monocytes % (Manual) Seg Neutrophils # Seg Neutrophils # Man Lymphocytes # (Manual) Monocytes # (Manual) Eosinophils # (Manual) Basophils # (Manual) PT INR APTT ABG pH ABG pO2 ABG HCO3 ABG O2 Saturation ABG Base Excess ABG Hemoglobin Oxyhemoglobin Sodium Potassium Chloride Carbon Dioxide BUN Creatinine Glucose POC Glucose 141 H 158 H 182 H Lactic Acid Calcium Ionized Calcium Phosphorus Magnesium Total Bilirubin AST ALT Alkaline Phosphatase Ammonia Total Creatine Kinase CK-MB (CK-2) CK-MB (CK-2) Rel Index Total Protein Albumin Urine WBC (Auto) Vancomycin Trough Salicylates Acetaminophen Plasma/Serum Alcohol Crossmatch 12/14/19 12/14/19 12/14/19 08:48 08:48 10:31 WBC 33.3 H RBC 2.70 L Hgb 7.9 L 8.0 L Hct 25.3 L 24.0 L MCH RDW 19.2 H Plt Count 476 H Lymph % (Auto) [place] % (Auto) [place] # Baso # Seg Neutrophils % Seg Neuts % (Manual) Lymphocytes % (Manual) Monocytes % (Manual) Seg Neutrophils # Seg Neutrophils # Man Lymphocytes # (Manual) Monocytes # (Manual) Eosinophils # (Manual) Basophils # (Manual) PT INR APTT ABG pH ABG pO2 ABG HCO3 ABG O2 Saturation ABG Base Excess ABG Hemoglobin Oxyhemoglobin Sodium 153 H Potassium 2.5 L* Chloride 114.9 H Carbon Dioxide 20 L BUN 38 H Creatinine 1.4 H Glucose 177 H POC Glucose Lactic Acid Calcium Ionized Calcium Phosphorus Magnesium Total Bilirubin AST ALT Alkaline Phosphatase Ammonia Total Creatine Kinase CK-MB (CK-2) CK-MB (CK-2) Rel Index Total Protein Albumin Urine WBC (Auto) Vancomycin Trough Salicylates Acetaminophen Plasma/Serum Alcohol Crossmatch 12/14/19 12/14/19 12/14/19 12:57 16:15 17:50 WBC RBC Hgb Hct MCH RDW Plt Count Lymph % (Auto) [place] % (Auto) [place] # Baso # Seg Neutrophils % Seg Neuts % (Manual) Lymphocytes % (Manual) Monocytes % (Manual) Seg Neutrophils # Seg Neutrophils # Man Lymphocytes # (Manual) Monocytes # (Manual) Eosinophils # (Manual) Basophils # (Manual) PT INR APTT ABG pH ABG pO2 73.6 L ABG HCO3 ABG O2 Saturation ABG Base Excess ABG Hemoglobin 7.6 L Oxyhemoglobin 94.0 L Sodium Potassium Chloride Carbon Dioxide BUN Creatinine Glucose POC Glucose 174 H 150 H Lactic Acid Calcium Ionized Calcium Phosphorus Magnesium Total Bilirubin AST ALT Alkaline Phosphatase Ammonia Total Creatine Kinase CK-MB (CK-2) CK-MB (CK-2) Rel Index Total Protein Albumin Urine WBC (Auto) Vancomycin Trough Salicylates Acetaminophen Plasma/Serum Alcohol Crossmatch 12/15/19 12/15/1920 00:28 05:27 07:23 WBC 30.0 H RBC 3.11 L Hgb 8.6 L Hct 27.7 L MCH RDW 20.0 H Plt Count 473 H Lymph % (Auto) [place] % (Auto) [place] # Baso # Seg Neutrophils % Seg Neuts % (Manual) Lymphocytes % (Manual) Monocytes % (Manual) Seg Neutrophils # Seg Neutrophils # Man Lymphocytes # (Manual) Monocytes # (Manual) Eosinophils # (Manual) Basophils # (Manual) PT INR APTT ABG pH ABG pO2 ABG HCO3 ABG O2 Saturation ABG Base Excess ABG Hemoglobin Oxyhemoglobin Sodium Potassium Chloride Carbon Dioxide BUN Creatinine Glucose POC Glucose 167 H 148 H Lactic Acid Calcium Ionized Calcium Phosphorus Magnesium Total Bilirubin AST ALT Alkaline Phosphatase Ammonia Total Creatine Kinase CK-MB (CK-2) CK-MB (CK-2) Rel Index Total Protein Albumin Urine WBC (Auto) Vancomycin Trough Salicylates Acetaminophen Plasma/Serum Alcohol Crossmatch 12/15/19 12/15/19 12/15/19 07:23 12:21 17:41 WBC RBC Hgb Hct MCH RDW Plt Count Lymph % (Auto) [place] % (Auto) [place] # Baso # Seg Neutrophils % Seg Neuts % (Manual) Lymphocytes % (Manual) Monocytes % (Manual) Seg Neutrophils # Seg Neutrophils # Man Lymphocytes # (Manual) Monocytes # (Manual) Eosinophils # (Manual) Basophils # (Manual) PT INR APTT ABG pH ABG pO2 ABG HCO3 ABG O2 Saturation ABG Base Excess ABG Hemoglobin Oxyhemoglobin Sodium 147 H Potassium 3.5 L D Chloride 111.2 H Carbon Dioxide 19 L BUN 29 H Creatinine Glucose 126 H POC Glucose 154 H 144 H Lactic Acid Calcium Ionized Calcium Phosphorus Magnesium Total Bilirubin AST ALT Alkaline Phosphatase Ammonia Total Creatine Kinase CK-MB (CK-2) CK-MB (CK-2) Rel Index Total Protein Albumin Urine WBC (Auto) Vancomycin Trough Salicylates Acetaminophen Plasma/Serum Alcohol Crossmatch 12/16/19 12/16/19 12/16/19 00:22 05:30 05:44 WBC 30.8 H RBC 2.58 L Hgb 7.1 L Hct 22.7 L MCH RDW 19.6 H Plt Count 451 H Lymph % (Auto) [place] % (Auto) [place] # Baso # Seg Neutrophils % Seg Neuts % (Manual) Lymphocytes % (Manual) Monocytes % (Manual) Seg Neutrophils # Seg Neutrophils # Man Lymphocytes # (Manual) Monocytes # (Manual) Eosinophils # (Manual) Basophils # (Manual) PT INR APTT ABG pH ABG pO2 ABG HCO3 ABG O2 Saturation ABG Base Excess ABG Hemoglobin Oxyhemoglobin Sodium Potassium Chloride Carbon Dioxide BUN Creatinine Glucose POC Glucose 139 H 126 H Lactic Acid Calcium Ionized Calcium Phosphorus Magnesium Total Bilirubin AST ALT Alkaline Phosphatase Ammonia Total Creatine Kinase CK-MB (CK-2) CK-MB (CK-2) Rel Index Total Protein Albumin Urine WBC (Auto) Vancomycin Trough Salicylates Acetaminophen Plasma/Serum Alcohol Crossmatch 12/16/19 12/16/19 12/16/19 05:44 11:48 17:37 WBC RBC Hgb Hct MCH RDW Plt Count Lymph % (Auto) [place] % (Auto) [place] # Baso # Seg Neutrophils % Seg Neuts % (Manual) Lymphocytes % (Manual) Monocytes % (Manual) Seg Neutrophils # Seg Neutrophils # Man Lymphocytes # (Manual) Monocytes # (Manual) Eosinophils # (Manual) Basophils # (Manual) PT INR APTT ABG pH ABG pO2 ABG HCO3 ABG O2 Saturation ABG Base Excess ABG Hemoglobin Oxyhemoglobin Sodium Potassium 3.4 L Chloride 109.2 H Carbon Dioxide 19 L BUN 27 H Creatinine Glucose 124 H POC Glucose 125 H 148 H Lactic Acid Calcium Ionized Calcium Phosphorus Magnesium Total Bilirubin AST ALT Alkaline Phosphatase Ammonia Total Creatine Kinase CK-MB (CK-2) CK-MB (CK-2) Rel Index Total Protein Albumin Urine WBC (Auto) Vancomycin Trough Salicylates Acetaminophen Plasma/Serum Alcohol Crossmatch 12/16/19 12/17/19 12/17/19 23:43 05:28 12:47 WBC RBC Hgb Hct MCH RDW Plt Count Lymph % (Auto) [place] % (Auto) [place] # Baso # Seg Neutrophils % Seg Neuts % (Manual) Lymphocytes % (Manual) Monocytes % (Manual) Seg Neutrophils # Seg Neutrophils # Man Lymphocytes # (Manual) Monocytes # (Manual) Eosinophils # (Manual) Basophils # (Manual) PT INR APTT ABG pH ABG pO2 ABG HCO3 ABG O2 Saturation ABG Base Excess ABG Hemoglobin Oxyhemoglobin Sodium Potassium Chloride Carbon Dioxide BUN Creatinine Glucose POC Glucose 142 H 140 H 125 H Lactic Acid Calcium Ionized Calcium Phosphorus Magnesium Total Bilirubin AST ALT Alkaline Phosphatase Ammonia Total Creatine Kinase CK-MB (CK-2) CK-MB (CK-2) Rel Index Total Protein Albumin Urine WBC (Auto) Vancomycin Trough Salicylates Acetaminophen Plasma/Serum Alcohol Crossmatch 12/17/19 12/17/19 12/17/19 17:05 18:00 Unknown WBC RBC Hgb Hct MCH RDW Plt Count Lymph % (Auto) [place] % (Auto) [place] # Baso # Seg Neutrophils % Seg Neuts % (Manual) Lymphocytes % (Manual) Monocytes % (Manual) Seg Neutrophils # Seg Neutrophils # Man Lymphocytes # (Manual) Monocytes # (Manual) Eosinophils # (Manual) Basophils # (Manual) PT INR APTT ABG pH ABG pO2 68.1 L ABG HCO3 ABG O2 Saturation 93.7 L ABG Base Excess ABG Hemoglobin 5.0 L Oxyhemoglobin 91.7 L Sodium Potassium Chloride Carbon Dioxide BUN Creatinine Glucose POC Glucose 140 H Lactic Acid Calcium Ionized Calcium Phosphorus Magnesium Total Bilirubin AST ALT Alkaline Phosphatase Ammonia Total Creatine Kinase CK-MB (CK-2) CK-MB (CK-2) Rel Index Total Protein Albumin Urine WBC (Auto) Vancomycin Trough Salicylates Acetaminophen Plasma/Serum Alcohol Crossmatch 12/18/19 12/18/19 12/18/19 00:16 04:53 04:53 WBC 28.6 H RBC 2.27 L Hgb 6.3 L Hct 19.5 L* MCH RDW 20.0 H Plt Count 497 H Lymph % (Auto) [place] % (Auto) [place] # Baso # Seg Neutrophils % Seg Neuts % (Manual) Lymphocytes % (Manual) Monocytes % (Manual) Seg Neutrophils # Seg Neutrophils # Man Lymphocytes # (Manual) Monocytes # (Manual) Eosinophils # (Manual) Basophils # (Manual) PT INR APTT ABG pH ABG pO2 ABG HCO3 ABG O2 Saturation ABG Base Excess ABG Hemoglobin Oxyhemoglobin Sodium Potassium Chloride 107.9 H Carbon Dioxide 20 L BUN 27 H Creatinine 0.6 L Glucose 116 H POC Glucose 123 H Lactic Acid Calcium Ionized Calcium Phosphorus Magnesium Total Bilirubin AST ALT Alkaline Phosphatase Ammonia Total Creatine Kinase CK-MB (CK-2) CK-MB (CK-2) Rel Index Total Protein Albumin Urine WBC (Auto) Vancomycin Trough Salicylates Acetaminophen Plasma/Serum Alcohol Crossmatch 12/18/19 12/18/19 12/18/19 06:38 11:22 12:08 WBC RBC Hgb Hct MCH RDW Plt Count Lymph % (Auto) [place] % (Auto) [place] # Baso # Seg Neutrophils % Seg Neuts % (Manual) Lymphocytes % (Manual) Monocytes % (Manual) Seg Neutrophils # Seg Neutrophils # Man Lymphocytes # (Manual) Monocytes # (Manual) Eosinophils # (Manual) Basophils # (Manual) PT INR APTT ABG pH ABG pO2 ABG HCO3 ABG O2 Saturation ABG Base Excess ABG Hemoglobin Oxyhemoglobin Sodium Potassium Chloride Carbon Dioxide BUN Creatinine Glucose POC Glucose 120 H 127 H Lactic Acid Calcium Ionized Calcium Phosphorus Magnesium Total Bilirubin AST ALT Alkaline Phosphatase Ammonia Total Creatine Kinase CK-MB (CK-2) CK-MB (CK-2) Rel Index Total Protein Albumin Urine WBC (Auto) Vancomycin Trough Salicylates Acetaminophen Plasma/Serum Alcohol Crossmatch See Detail 12/18/19 12/18/19 12/18/19 14:05 17:49 23:53 WBC RBC Hgb Hct MCH RDW Plt Count Lymph % (Auto) [place] % (Auto) [place] # Baso # Seg Neutrophils % Seg Neuts % (Manual) Lymphocytes % (Manual) Monocytes % (Manual) Seg Neutrophils # Seg Neutrophils # Man Lymphocytes # (Manual) Monocytes # (Manual) Eosinophils # (Manual) Basophils # (Manual) PT INR APTT ABG pH 7.267 L ABG pO2 69.8 L ABG HCO3 ABG O2 Saturation 88.4 L ABG Base Excess ABG Hemoglobin 7.1 L Oxyhemoglobin 86.4 L Sodium Potassium Chloride Carbon Dioxide BUN Creatinine Glucose POC Glucose 157 H 128 H Lactic Acid Calcium Ionized Calcium Phosphorus Magnesium Total Bilirubin AST ALT Alkaline Phosphatase Ammonia Total Creatine Kinase CK-MB (CK-2) CK-MB (CK-2) Rel Index Total Protein Albumin Urine WBC (Auto) Vancomycin Trough Salicylates Acetaminophen Plasma/Serum Alcohol Crossmatch 12/19/19 12/19/19 12/19/19 03:37 03:37 05:25 WBC 31.3 H RBC 2.60 L Hgb 7.6 L Hct 23.0 L MCH RDW 19.4 H Plt Count 530 H Lymph % (Auto) [place] % (Auto) [place] # Baso # Seg Neutrophils % Seg Neuts % (Manual) Lymphocytes % (Manual) Monocytes % (Manual) Seg Neutrophils # Seg Neutrophils # Man Lymphocytes # (Manual) Monocytes # (Manual) Eosinophils # (Manual) Basophils # (Manual) PT INR APTT ABG pH ABG pO2 ABG HCO3 ABG O2 Saturation ABG Base Excess ABG Hemoglobin Oxyhemoglobin Sodium Potassium Chloride Carbon Dioxide 18 L BUN 36 H Creatinine Glucose 111 H POC Glucose 123 H Lactic Acid Calcium Ionized Calcium Phosphorus Magnesium Total Bilirubin AST ALT Alkaline Phosphatase Ammonia Total Creatine Kinase CK-MB (CK-2) CK-MB (CK-2) Rel Index Total Protein Albumin Urine WBC (Auto) Vancomycin Trough Salicylates Acetaminophen Plasma/Serum Alcohol Crossmatch 12/19/19 12/19/19 12/20/19 12:59 18:33 00:00 WBC RBC Hgb Hct MCH RDW Plt Count Lymph % (Auto) [place] % (Auto) [place] # Baso # Seg Neutrophils % Seg Neuts % (Manual) Lymphocytes % (Manual) Monocytes % (Manual) Seg Neutrophils # Seg Neutrophils # Man Lymphocytes # (Manual) Monocytes # (Manual) Eosinophils # (Manual) Basophils # (Manual) PT INR APTT ABG pH ABG pO2 ABG HCO3 ABG O2 Saturation ABG Base Excess ABG Hemoglobin Oxyhemoglobin Sodium Potassium Chloride Carbon Dioxide BUN Creatinine Glucose POC Glucose 130 H 118 H 135 H Lactic Acid Calcium Ionized Calcium Phosphorus Magnesium Total Bilirubin AST ALT Alkaline Phosphatase Ammonia Total Creatine Kinase CK-MB (CK-2) CK-MB (CK-2) Rel Index Total Protein Albumin Urine WBC (Auto) Vancomycin Trough Salicylates Acetaminophen Plasma/Serum Alcohol Crossmatch 12/20/19 12/20/19 12/20/19 05:46 12:31 18:07 WBC RBC Hgb Hct MCH RDW Plt Count Lymph % (Auto) [place] % (Auto) [place] # Baso # Seg Neutrophils % Seg Neuts % (Manual) Lymphocytes % (Manual) Monocytes % (Manual) Seg Neutrophils # Seg Neutrophils # Man Lymphocytes # (Manual) Monocytes # (Manual) Eosinophils # (Manual) Basophils # (Manual) PT INR APTT ABG pH ABG pO2 ABG HCO3 ABG O2 Saturation ABG Base Excess ABG Hemoglobin Oxyhemoglobin Sodium Potassium Chloride Carbon Dioxide BUN Creatinine Glucose POC Glucose 131 H 128 H 134 H Lactic Acid Calcium Ionized Calcium Phosphorus Magnesium Total Bilirubin AST ALT Alkaline Phosphatase Ammonia Total Creatine Kinase CK-MB (CK-2) CK-MB (CK-2) Rel Index Total Protein Albumin Urine WBC (Auto) Vancomycin Trough Salicylates Acetaminophen Plasma/Serum Alcohol Crossmatch 12/21/19 12/21/19 12/21/19 03:28 03:28 07:21 WBC 29.4 H RBC 2.30 L Hgb 6.8 L Hct 20.2 L MCH RDW 20.2 H Plt Count 746 H Lymph % (Auto) [place] % (Auto) [place] # Baso # Seg Neutrophils % Seg Neuts % (Manual) 85.0 H Lymphocytes % (Manual) 8.0 L Monocytes % (Manual) Seg Neutrophils # Seg Neutrophils # Man 25.0 H Lymphocytes # (Manual) Monocytes # (Manual) 1.5 H Eosinophils # (Manual) 0.6 H Basophils # (Manual) PT INR APTT ABG pH ABG pO2 ABG HCO3 ABG O2 Saturation ABG Base Excess ABG Hemoglobin Oxyhemoglobin Sodium Potassium Chloride Carbon Dioxide 17 L BUN 57 H Creatinine 1.4 H D Glucose POC Glucose 124 H Lactic Acid Calcium Ionized Calcium Phosphorus Magnesium Total Bilirubin AST ALT Alkaline Phosphatase Ammonia Total Creatine Kinase CK-MB (CK-2) CK-MB (CK-2) Rel Index Total Protein Albumin Urine WBC (Auto) Vancomycin Trough Salicylates Acetaminophen Plasma/Serum Alcohol Crossmatch 12/21/19 12/21/19 12/21/19 08:56 12:06 14:53 WBC RBC Hgb 7.2 L Hct 22.9 L MCH RDW Plt Count Lymph % (Auto) [place] % (Auto) [place] # Baso # Seg Neutrophils % Seg Neuts % (Manual) Lymphocytes % (Manual) Monocytes % (Manual) Seg Neutrophils # Seg Neutrophils # Man Lymphocytes # (Manual) Monocytes # (Manual) Eosinophils # (Manual) Basophils # (Manual) PT INR APTT ABG pH ABG pO2 ABG HCO3 ABG O2 Saturation ABG Base Excess ABG Hemoglobin Oxyhemoglobin Sodium Potassium Chloride Carbon Dioxide BUN Creatinine Glucose POC Glucose 116 H Lactic Acid Calcium Ionized Calcium Phosphorus Magnesium Total Bilirubin AST ALT Alkaline Phosphatase Ammonia Total Creatine Kinase CK-MB (CK-2) CK-MB (CK-2) Rel Index Total Protein Albumin Urine WBC (Auto) Vancomycin Trough 33.8 H Salicylates Acetaminophen Plasma/Serum Alcohol Crossmatch 12/21/19 12/21/19 12/21/19 14:54 17:27 23:49 WBC RBC Hgb Hct MCH RDW Plt Count Lymph % (Auto) [place] % (Auto) [place] # Baso # Seg Neutrophils % Seg Neuts % (Manual) Lymphocytes % (Manual) Monocytes % (Manual) Seg Neutrophils # Seg Neutrophils # Man Lymphocytes # (Manual) Monocytes # (Manual) Eosinophils # (Manual) Basophils # (Manual) PT INR APTT ABG pH ABG pO2 ABG HCO3 ABG O2 Saturation ABG Base Excess ABG Hemoglobin Oxyhemoglobin Sodium Potassium Chloride Carbon Dioxide BUN Creatinine Glucose POC Glucose 145 H 127 H Lactic Acid Calcium Ionized Calcium Phosphorus Magnesium Total Bilirubin AST ALT Alkaline Phosphatase Ammonia Total Creatine Kinase CK-MB (CK-2) CK-MB (CK-2) Rel Index Total Protein Albumin Urine WBC (Auto) Vancomycin Trough Salicylates Acetaminophen Plasma/Serum Alcohol Crossmatch See Detail 12/22/19 12/22/19 12/22/19 04:43 05:56 08:40 WBC RBC Hgb Hct MCH RDW Plt Count Lymph % (Auto) [place] % (Auto) [place] # Baso # Seg Neutrophils % Seg Neuts % (Manual) Lymphocytes % (Manual) Monocytes % (Manual) Seg Neutrophils # Seg Neutrophils # Man Lymphocytes # (Manual) Monocytes # (Manual) Eosinophils # (Manual) Basophils # (Manual) PT INR APTT ABG pH ABG pO2 75.6 L ABG HCO3 ABG O2 Saturation ABG Base Excess -2.6 L ABG Hemoglobin 6.8 L Oxyhemoglobin 94.6 L Sodium Potassium Chloride Carbon Dioxide 17 L BUN 60 H Creatinine 1.4 H Glucose 126 H POC Glucose 153 H Lactic Acid Calcium Ionized Calcium Phosphorus Magnesium Total Bilirubin AST ALT Alkaline Phosphatase Ammonia Total Creatine Kinase CK-MB (CK-2) CK-MB (CK-2) Rel Index Total Protein Albumin Urine WBC (Auto) Vancomycin Trough Salicylates Acetaminophen Plasma/Serum Alcohol Crossmatch 12/22/19 12/22/19 12/23/19 12:07 17:49 04:30 WBC 22.4 H RBC 2.68 L Hgb 7.6 L Hct 22.9 L MCH RDW 19.9 H Plt Count 998 H Lymph % (Auto) [place] % (Auto) [place] # Baso # Seg Neutrophils % Seg Neuts % (Manual) 88.0 H Lymphocytes % (Manual) 2.0 L Monocytes % (Manual) 9.0 H Seg Neutrophils # Seg Neutrophils # Man 19.7 H Lymphocytes # (Manual) 0.4 L Monocytes # (Manual) 2.0 H Eosinophils # (Manual) Basophils # (Manual) PT INR APTT ABG pH ABG pO2 ABG HCO3 ABG O2 Saturation ABG Base Excess ABG Hemoglobin Oxyhemoglobin Sodium Potassium Chloride Carbon Dioxide BUN Creatinine Glucose POC Glucose 140 H 116 H Lactic Acid Calcium Ionized Calcium Phosphorus Magnesium Total Bilirubin AST ALT Alkaline Phosphatase Ammonia Total Creatine Kinase CK-MB (CK-2) CK-MB (CK-2) Rel Index Total Protein Albumin Urine WBC (Auto) Vancomycin Trough Salicylates Acetaminophen Plasma/Serum Alcohol Crossmatch 12/23/19 12/23/19 12/23/19 04:30 12:00 18:06 WBC RBC Hgb Hct MCH RDW Plt Count Lymph % (Auto) [place] % (Auto) [place] # Baso # Seg Neutrophils % Seg Neuts % (Manual) Lymphocytes % (Manual) Monocytes % (Manual) Seg Neutrophils # Seg Neutrophils # Man Lymphocytes # (Manual) Monocytes # (Manual) Eosinophils # (Manual) Basophils # (Manual) PT INR APTT ABG pH ABG pO2 ABG HCO3 ABG O2 Saturation ABG Base Excess ABG Hemoglobin Oxyhemoglobin Sodium Potassium 5.2 H Chloride Carbon Dioxide 21 L BUN 69 H Creatinine 1.5 H Glucose 117 H POC Glucose 128 H 138 H Lactic Acid Calcium Ionized Calcium Phosphorus Magnesium Total Bilirubin AST ALT Alkaline Phosphatase Ammonia Total Creatine Kinase CK-MB (CK-2) CK-MB (CK-2) Rel Index Total Protein Albumin Urine WBC (Auto) Vancomycin Trough Salicylates Acetaminophen Plasma/Serum Alcohol Crossmatch 12/23/19 12/24/19 12/24/19 23:46 04:31 05:08 WBC RBC Hgb Hct MCH RDW Plt Count Lymph % (Auto) [place] % (Auto) [place] # Baso # Seg Neutrophils % Seg Neuts % (Manual) Lymphocytes % (Manual) Monocytes % (Manual) Seg Neutrophils # Seg Neutrophils # Man Lymphocytes # (Manual) Monocytes # (Manual) Eosinophils # (Manual) Basophils # (Manual) PT INR APTT ABG pH ABG pO2 ABG HCO3 ABG O2 Saturation ABG Base Excess ABG Hemoglobin Oxyhemoglobin Sodium Potassium 5.3 H Chloride 107.6 H Carbon Dioxide 20 L BUN 72 H Creatinine 1.6 H Glucose 120 H POC Glucose 120 H 140 H Lactic Acid Calcium Ionized Calcium Phosphorus Magnesium Total Bilirubin AST ALT Alkaline Phosphatase Ammonia Total Creatine Kinase CK-MB (CK-2) CK-MB (CK-2) Rel Index Total Protein Albumin Urine WBC (Auto) Vancomycin Trough Salicylates Acetaminophen Plasma/Serum Alcohol Crossmatch 12/24/19 12/24/19 12/25/19 11:58 17:49 03:47 WBC 36.2 H RBC 2.92 L Hgb 8.4 L Hct 26.1 L MCH RDW 20.2 H Plt Count 942 H Lymph % (Auto) [place] % (Auto) [place] # Baso # Seg Neutrophils % Seg Neuts % (Manual) 97.5 H Lymphocytes % (Manual) 1.0 L Monocytes % (Manual) Seg Neutrophils # Seg Neutrophils # Man 35.3 H Lymphocytes # (Manual) 0.4 L Monocytes # (Manual) Eosinophils # (Manual) Basophils # (Manual) PT INR APTT ABG pH ABG pO2 ABG HCO3 ABG O2 Saturation ABG Base Excess ABG Hemoglobin Oxyhemoglobin Sodium Potassium Chloride Carbon Dioxide BUN Creatinine Glucose POC Glucose 146 H 131 H Lactic Acid Calcium Ionized Calcium Phosphorus Magnesium Total Bilirubin AST ALT Alkaline Phosphatase Ammonia Total Creatine Kinase CK-MB (CK-2) CK-MB (CK-2) Rel Index Total Protein Albumin Urine WBC (Auto) Vancomycin Trough Salicylates Acetaminophen Plasma/Serum Alcohol Crossmatch 12/25/19 12/25/19 12/25/19 03:47 05:30 12:23 WBC RBC Hgb Hct MCH RDW Plt Count Lymph % (Auto) [place] % (Auto) [place] # Baso # Seg Neutrophils % Seg Neuts % (Manual) Lymphocytes % (Manual) Monocytes % (Manual) Seg Neutrophils # Seg Neutrophils # Man Lymphocytes # (Manual) Monocytes # (Manual) Eosinophils # (Manual) Basophils # (Manual) PT INR APTT ABG pH ABG pO2 ABG HCO3 ABG O2 Saturation ABG Base Excess ABG Hemoglobin Oxyhemoglobin Sodium Potassium Chloride Carbon Dioxide 15 L BUN 70 H Creatinine 1.7 H Glucose 153 H POC Glucose 169 H 135 H Lactic Acid Calcium Ionized Calcium Phosphorus Magnesium Total Bilirubin AST ALT Alkaline Phosphatase Ammonia Total Creatine Kinase CK-MB (CK-2) CK-MB (CK-2) Rel Index Total Protein Albumin Urine WBC (Auto) Vancomycin Trough Salicylates Acetaminophen Plasma/Serum Alcohol Crossmatch 12/25/19 12/25/19 12/26/19 17:37 23:29 09:47 WBC 22.1 H RBC 2.83 L Hgb 7.9 L Hct 25.5 L MCH RDW 20.0 H Plt Count 894 H Lymph % (Auto) [place] % (Auto) [place] # Baso # Seg Neutrophils % Seg Neuts % (Manual) Lymphocytes % (Manual) Monocytes % (Manual) Seg Neutrophils # Seg Neutrophils # Man Lymphocytes # (Manual) Monocytes # (Manual) Eosinophils # (Manual) Basophils # (Manual) PT INR APTT ABG pH ABG pO2 ABG HCO3 ABG O2 Saturation ABG Base Excess ABG Hemoglobin Oxyhemoglobin Sodium Potassium Chloride Carbon Dioxide BUN Creatinine Glucose POC Glucose 120 H 140 H Lactic Acid Calcium Ionized Calcium Phosphorus Magnesium Total Bilirubin AST ALT Alkaline Phosphatase Ammonia Total Creatine Kinase CK-MB (CK-2) CK-MB (CK-2) Rel Index Total Protein Albumin Urine WBC (Auto) Vancomycin Trough Salicylates Acetaminophen Plasma/Serum Alcohol Crossmatch 12/26/19 12/26/19 12/26/19 09:47 11:46 17:52 WBC RBC Hgb Hct MCH RDW Plt Count Lymph % (Auto) [place] % (Auto) [place] # Baso # Seg Neutrophils % Seg Neuts % (Manual) Lymphocytes % (Manual) Monocytes % (Manual) Seg Neutrophils # Seg Neutrophils # Man Lymphocytes # (Manual) Monocytes # (Manual) Eosinophils # (Manual) Basophils # (Manual) PT INR APTT ABG pH ABG pO2 ABG HCO3 ABG O2 Saturation ABG Base Excess ABG Hemoglobin Oxyhemoglobin Sodium Potassium Chloride Carbon Dioxide 18 L BUN 65 H Creatinine 1.4 H Glucose 132 H POC Glucose 110 H 145 H Lactic Acid Calcium Ionized Calcium Phosphorus Magnesium Total Bilirubin AST ALT Alkaline Phosphatase Ammonia Total Creatine Kinase CK-MB (CK-2) CK-MB (CK-2) Rel Index Total Protein Albumin Urine WBC (Auto) Vancomycin Trough Salicylates Acetaminophen Plasma/Serum Alcohol Crossmatch 12/27/19 12/27/19 12/27/19 00:01 03:42 03:42 WBC 18.0 H RBC 2.86 L Hgb 8.0 L Hct 25.2 L MCH RDW 19.2 H Plt Count 873 H Lymph % (Auto) 8.4 L [place] % (Auto) 7.5 H [place] # 1.4 H Baso # 0.2 H Seg Neutrophils % 82.2 H Seg Neuts % (Manual) Lymphocytes % (Manual) Monocytes % (Manual) Seg Neutrophils # 14.8 H Seg Neutrophils # Man Lymphocytes # (Manual) Monocytes # (Manual) Eosinophils # (Manual) Basophils # (Manual) PT INR APTT ABG pH ABG pO2 ABG HCO3 ABG O2 Saturation ABG Base Excess ABG Hemoglobin Oxyhemoglobin Sodium Potassium Chloride Carbon Dioxide BUN 73 H Creatinine 1.4 H Glucose 119 H POC Glucose 124 H Lactic Acid Calcium Ionized Calcium Phosphorus Magnesium Total Bilirubin AST ALT Alkaline Phosphatase Ammonia Total Creatine Kinase CK-MB (CK-2) CK-MB (CK-2) Rel Index Total Protein Albumin Urine WBC (Auto) Vancomycin Trough Salicylates Acetaminophen Plasma/Serum Alcohol Crossmatch 12/27/19 12/27/19 12/27/19 05:45 11:45 17:29 WBC RBC Hgb Hct MCH RDW Plt Count Lymph % (Auto) [place] % (Auto) [place] # Baso # Seg Neutrophils % Seg Neuts % (Manual) Lymphocytes % (Manual) Monocytes % (Manual) Seg Neutrophils # Seg Neutrophils # Man Lymphocytes # (Manual) Monocytes # (Manual) Eosinophils # (Manual) Basophils # (Manual) PT INR APTT ABG pH ABG pO2 ABG HCO3 ABG O2 Saturation ABG Base Excess ABG Hemoglobin Oxyhemoglobin Sodium Potassium Chloride Carbon Dioxide BUN Creatinine Glucose POC Glucose 131 H 123 H 134 H Lactic Acid Calcium Ionized Calcium Phosphorus Magnesium Total Bilirubin AST ALT Alkaline Phosphatase Ammonia Total Creatine Kinase CK-MB (CK-2) CK-MB (CK-2) Rel Index Total Protein Albumin Urine WBC (Auto) Vancomycin Trough Salicylates Acetaminophen Plasma/Serum Alcohol Crossmatch 12/28/19 12/28/19 12/28/19 00:12 05:14 11:53 WBC RBC Hgb Hct MCH RDW Plt Count Lymph % (Auto) [place] % (Auto) [place] # Baso # Seg Neutrophils % Seg Neuts % (Manual) Lymphocytes % (Manual) Monocytes % (Manual) Seg Neutrophils # Seg Neutrophils # Man Lymphocytes # (Manual) Monocytes # (Manual) Eosinophils # (Manual) Basophils # (Manual) PT INR APTT ABG pH ABG pO2 ABG HCO3 ABG O2 Saturation ABG Base Excess ABG Hemoglobin Oxyhemoglobin Sodium Potassium Chloride Carbon Dioxide BUN Creatinine Glucose POC Glucose 138 H 130 H 146 H Lactic Acid Calcium Ionized Calcium Phosphorus Magnesium Total Bilirubin AST ALT Alkaline Phosphatase Ammonia Total Creatine Kinase CK-MB (CK-2) CK-MB (CK-2) Rel Index Total Protein Albumin Urine WBC (Auto) Vancomycin Trough Salicylates Acetaminophen Plasma/Serum Alcohol Crossmatch 12/28/19 12/29/19 12/29/19 17:39 00:01 18:11 WBC RBC Hgb Hct MCH RDW Plt Count Lymph % (Auto) [place] % (Auto) [place] # Baso # Seg Neutrophils % Seg Neuts % (Manual) Lymphocytes % (Manual) Monocytes % (Manual) Seg Neutrophils # Seg Neutrophils # Man Lymphocytes # (Manual) Monocytes # (Manual) Eosinophils # (Manual) Basophils # (Manual) PT INR APTT ABG pH ABG pO2 ABG HCO3 ABG O2 Saturation ABG Base Excess ABG Hemoglobin Oxyhemoglobin Sodium Potassium Chloride Carbon Dioxide BUN Creatinine Glucose POC Glucose 117 H 139 H 130 H Lactic Acid Calcium Ionized Calcium Phosphorus Magnesium Total Bilirubin AST ALT Alkaline Phosphatase Ammonia Total Creatine Kinase CK-MB (CK-2) CK-MB (CK-2) Rel Index Total Protein Albumin Urine WBC (Auto) Vancomycin Trough Salicylates Acetaminophen Plasma/Serum Alcohol Crossmatch 12/29/19 12/30/19 12/30/19 23:09 00:02 01:06 WBC 16.7 H RBC 2.91 L Hgb 8.2 L Hct 25.4 L MCH RDW 18.7 H Plt Count 708 H Lymph % (Auto) 9.4 L [place] % (Auto) [place] # 0.9 H Baso # Seg Neutrophils % 83.5 H Seg Neuts % (Manual) Lymphocytes % (Manual) Monocytes % (Manual) Seg Neutrophils # 14.0 H Seg Neutrophils # Man Lymphocytes # (Manual) Monocytes # (Manual) Eosinophils # (Manual) Basophils # (Manual) PT INR APTT ABG pH ABG pO2 ABG HCO3 ABG O2 Saturation ABG Base Excess ABG Hemoglobin Oxyhemoglobin Sodium Potassium Chloride Carbon Dioxide BUN Creatinine Glucose POC Glucose 120 H 114 H Lactic Acid Calcium Ionized Calcium Phosphorus Magnesium Total Bilirubin AST ALT Alkaline Phosphatase Ammonia Total Creatine Kinase CK-MB (CK-2) CK-MB (CK-2) Rel Index Total Protein Albumin Urine WBC (Auto) Vancomycin Trough Salicylates Acetaminophen Plasma/Serum Alcohol Crossmatch 12/30/19 12/30/19 12/30/19 01:06 04:23 05:18 WBC RBC Hgb Hct MCH RDW Plt Count Lymph % (Auto) [place] % (Auto) [place] # Baso # Seg Neutrophils % Seg Neuts % (Manual) Lymphocytes % (Manual) Monocytes % (Manual) Seg Neutrophils # Seg Neutrophils # Man Lymphocytes # (Manual) Monocytes # (Manual) Eosinophils # (Manual) Basophils # (Manual) PT INR APTT ABG pH ABG pO2 ABG HCO3 ABG O2 Saturation ABG Base Excess ABG Hemoglobin 8.3 L Oxyhemoglobin Sodium Potassium Chloride Carbon Dioxide BUN 70 H Creatinine Glucose 122 H POC Glucose 130 H Lactic Acid Calcium Ionized Calcium Phosphorus Magnesium Total Bilirubin AST ALT Alkaline Phosphatase Ammonia Total Creatine Kinase CK-MB (CK-2) CK-MB (CK-2) Rel Index Total Protein Albumin Urine WBC (Auto) Vancomycin Trough Salicylates Acetaminophen Plasma/Serum Alcohol Crossmatch 12/30/19 12/30/19 12/30/19 05:40 12:17 17:43 WBC RBC Hgb Hct MCH RDW Plt Count Lymph % (Auto) [place] % (Auto) [place] # Baso # Seg Neutrophils % Seg Neuts % (Manual) Lymphocytes % (Manual) Monocytes % (Manual) Seg Neutrophils # Seg Neutrophils # Man Lymphocytes # (Manual) Monocytes # (Manual) Eosinophils # (Manual) Basophils # (Manual) PT INR APTT ABG pH ABG pO2 ABG HCO3 ABG O2 Saturation ABG Base Excess ABG Hemoglobin Oxyhemoglobin Sodium Potassium Chloride Carbon Dioxide BUN Creatinine Glucose POC Glucose 135 H 132 H 118 H Lactic Acid Calcium Ionized Calcium Phosphorus Magnesium Total Bilirubin AST ALT Alkaline Phosphatase Ammonia Total Creatine Kinase CK-MB (CK-2) CK-MB (CK-2) Rel Index Total Protein Albumin Urine WBC (Auto) Vancomycin Trough Salicylates Acetaminophen Plasma/Serum Alcohol Crossmatch 12/30/19 12/31/19 12/31/19 23:29 05:19 17:50 WBC RBC Hgb Hct MCH RDW Plt Count Lymph % (Auto) [place] % (Auto) [place] # Baso # Seg Neutrophils % Seg Neuts % (Manual) Lymphocytes % (Manual) Monocytes % (Manual) Seg Neutrophils # Seg Neutrophils # Man Lymphocytes # (Manual) Monocytes # (Manual) Eosinophils # (Manual) Basophils # (Manual) PT INR APTT ABG pH ABG pO2 ABG HCO3 ABG O2 Saturation ABG Base Excess ABG Hemoglobin Oxyhemoglobin Sodium Potassium Chloride Carbon Dioxide BUN Creatinine Glucose POC Glucose 114 H 109 H 116 H Lactic Acid Calcium Ionized Calcium Phosphorus Magnesium Total Bilirubin AST ALT Alkaline Phosphatase Ammonia Total Creatine Kinase CK-MB (CK-2) CK-MB (CK-2) Rel Index Total Protein Albumin Urine WBC (Auto) Vancomycin Trough Salicylates Acetaminophen Plasma/Serum Alcohol Crossmatch 01/01/20 01/01/20 01/01/20 00:10 05:19 12:02 WBC RBC Hgb Hct MCH RDW Plt Count Lymph % (Auto) [place] % (Auto) [place] # Baso # Seg Neutrophils % Seg Neuts % (Manual) Lymphocytes % (Manual) Monocytes % (Manual) Seg Neutrophils # Seg Neutrophils # Man Lymphocytes # (Manual) Monocytes # (Manual) Eosinophils # (Manual) Basophils # (Manual) PT INR APTT ABG pH ABG pO2 ABG HCO3 ABG O2 Saturation ABG Base Excess ABG Hemoglobin Oxyhemoglobin Sodium Potassium Chloride Carbon Dioxide BUN Creatinine Glucose POC Glucose 131 H 122 H 136 H Lactic Acid Calcium Ionized Calcium Phosphorus Magnesium Total Bilirubin AST ALT Alkaline Phosphatase Ammonia Total Creatine Kinase CK-MB (CK-2) CK-MB (CK-2) Rel Index Total Protein Albumin Urine WBC (Auto) Vancomycin Trough Salicylates Acetaminophen Plasma/Serum Alcohol Crossmatch 01/02/20 01/02/20 01/02/20 00:24 05:36 11:41 WBC RBC Hgb Hct MCH RDW Plt Count Lymph % (Auto) [place] % (Auto) [place] # Baso # Seg Neutrophils % Seg Neuts % (Manual) Lymphocytes % (Manual) Monocytes % (Manual) Seg Neutrophils # Seg Neutrophils # Man Lymphocytes # (Manual) Monocytes # (Manual) Eosinophils # (Manual) Basophils # (Manual) PT INR APTT ABG pH ABG pO2 ABG HCO3 ABG O2 Saturation ABG Base Excess ABG Hemoglobin Oxyhemoglobin Sodium Potassium Chloride Carbon Dioxide BUN Creatinine Glucose POC Glucose 119 H 109 H 125 H Lactic Acid Calcium Ionized Calcium Phosphorus Magnesium Total Bilirubin AST ALT Alkaline Phosphatase Ammonia Total Creatine Kinase CK-MB (CK-2) CK-MB (CK-2) Rel Index Total Protein Albumin Urine WBC (Auto) Vancomycin Trough Salicylates Acetaminophen Plasma/Serum Alcohol Crossmatch 01/02/20 01/03/20 01/03/20 17:49 05:29 12:13 WBC RBC Hgb Hct MCH RDW Plt Count Lymph % (Auto) [place] % (Auto) [place] # Baso # Seg Neutrophils % Seg Neuts % (Manual) Lymphocytes % (Manual) Monocytes % (Manual) Seg Neutrophils # Seg Neutrophils # Man Lymphocytes # (Manual) Monocytes # (Manual) Eosinophils # (Manual) Basophils # (Manual) PT INR APTT ABG pH ABG pO2 ABG HCO3 ABG O2 Saturation ABG Base Excess ABG Hemoglobin Oxyhemoglobin Sodium Potassium Chloride Carbon Dioxide BUN Creatinine Glucose POC Glucose 130 H 132 H 113 H Lactic Acid Calcium Ionized Calcium Phosphorus Magnesium Total Bilirubin AST ALT Alkaline Phosphatase Ammonia Total Creatine Kinase CK-MB (CK-2) CK-MB (CK-2) Rel Index Total Protein Albumin Urine WBC (Auto) Vancomycin Trough Salicylates Acetaminophen Plasma/Serum Alcohol Crossmatch 01/03/20 01/04/20 01/04/20 17:32 00:19 05:26 WBC RBC Hgb Hct MCH RDW Plt Count Lymph % (Auto) [place] % (Auto) [place] # Baso # Seg Neutrophils % Seg Neuts % (Manual) Lymphocytes % (Manual) Monocytes % (Manual) Seg Neutrophils # Seg Neutrophils # Man Lymphocytes # (Manual) Monocytes # (Manual) Eosinophils # (Manual) Basophils # (Manual) PT INR APTT ABG pH ABG pO2 ABG HCO3 ABG O2 Saturation ABG Base Excess ABG Hemoglobin Oxyhemoglobin Sodium Potassium Chloride Carbon Dioxide BUN Creatinine Glucose POC Glucose 127 H 141 H 129 H Lactic Acid Calcium Ionized Calcium Phosphorus Magnesium Total Bilirubin AST ALT Alkaline Phosphatase Ammonia Total Creatine Kinase CK-MB (CK-2) CK-MB (CK-2) Rel Index Total Protein Albumin Urine WBC (Auto) Vancomycin Trough Salicylates Acetaminophen Plasma/Serum Alcohol Crossmatch 01/04/20 01/04/20 01/05/20 11:39 17:29 05:22 WBC RBC Hgb Hct MCH RDW Plt Count Lymph % (Auto) [place] % (Auto) [place] # Baso # Seg Neutrophils % Seg Neuts % (Manual) Lymphocytes % (Manual) Monocytes % (Manual) Seg Neutrophils # Seg Neutrophils # Man Lymphocytes # (Manual) Monocytes # (Manual) Eosinophils # (Manual) Basophils # (Manual) PT INR APTT ABG pH ABG pO2 ABG HCO3 ABG O2 Saturation ABG Base Excess ABG Hemoglobin Oxyhemoglobin Sodium Potassium Chloride Carbon Dioxide BUN Creatinine Glucose POC Glucose 167 H 132 H 121 H Lactic Acid Calcium Ionized Calcium Phosphorus Magnesium Total Bilirubin AST ALT Alkaline Phosphatase Ammonia Total Creatine Kinase CK-MB (CK-2) CK-MB (CK-2) Rel Index Total Protein Albumin Urine WBC (Auto) Vancomycin Trough Salicylates Acetaminophen Plasma/Serum Alcohol Crossmatch 04/18/20 04/18/20 04/18/20 12:25 17:40 18:06 WBC RBC Hgb Hct MCH RDW Plt Count Lymph % (Auto) [place] % (Auto) [place] # Baso # Seg Neutrophils % Seg Neuts % (Manual) Lymphocytes % (Manual) Monocytes % (Manual) Seg Neutrophils # Seg Neutrophils # Man Lymphocytes # (Manual) Monocytes # (Manual) Eosinophils # (Manual) Basophils # (Manual) PT INR APTT ABG pH 7.472 H ABG pO2 99.2 H ABG HCO3 ABG O2 Saturation ABG Base Excess ABG Hemoglobin 7.8 L Oxyhemoglobin Sodium Potassium Chloride Carbon Dioxide BUN Creatinine Glucose POC Glucose 106 H 110 H Lactic Acid Calcium Ionized Calcium Phosphorus Magnesium Total Bilirubin AST ALT Alkaline Phosphatase Ammonia Total Creatine Kinase CK-MB (CK-2) CK-MB (CK-2) Rel Index Total Protein Albumin Urine WBC (Auto) Vancomycin Trough Salicylates Acetaminophen Plasma/Serum Alcohol Crossmatch 01/06/20 01/06/20 01/06/20 00:11 05:16 11:30 WBC RBC Hgb Hct MCH RDW Plt Count Lymph % (Auto) [place] % (Auto) [place] # Baso # Seg Neutrophils % Seg Neuts % (Manual) Lymphocytes % (Manual) Monocytes % (Manual) Seg Neutrophils # Seg Neutrophils # Man Lymphocytes # (Manual) Monocytes # (Manual) Eosinophils # (Manual) Basophils # (Manual) PT INR APTT ABG pH ABG pO2 ABG HCO3 ABG O2 Saturation ABG Base Excess ABG Hemoglobin Oxyhemoglobin Sodium Potassium Chloride Carbon Dioxide BUN Creatinine Glucose POC Glucose 108 H 124 H 125 H Lactic Acid Calcium Ionized Calcium Phosphorus Magnesium Total Bilirubin AST ALT Alkaline Phosphatase Ammonia Total Creatine Kinase CK-MB (CK-2) CK-MB (CK-2) Rel Index Total Protein Albumin Urine WBC (Auto) Vancomycin Trough Salicylates Acetaminophen Plasma/Serum Alcohol Crossmatch 01/06/20 01/06/20 01/07/20 17:53 23:51 04:12 WBC 16.5 H RBC 3.29 L Hgb 9.3 L Hct 28.1 L MCH RDW 18.2 H Plt Count 526 H Lymph % (Auto) 8.4 L [place] % (Auto) [place] # 1.0 H Baso # Seg Neutrophils % 84.4 H Seg Neuts % (Manual) Lymphocytes % (Manual) Monocytes % (Manual) Seg Neutrophils # 13.9 H Seg Neutrophils # Man Lymphocytes # (Manual) Monocytes # (Manual) Eosinophils # (Manual) Basophils # (Manual) PT INR APTT ABG pH ABG pO2 ABG HCO3 ABG O2 Saturation ABG Base Excess ABG Hemoglobin Oxyhemoglobin Sodium Potassium Chloride Carbon Dioxide BUN Creatinine Glucose POC Glucose 166 H 128 H Lactic Acid Calcium Ionized Calcium Phosphorus Magnesium Total Bilirubin AST ALT Alkaline Phosphatase Ammonia Total Creatine Kinase CK-MB (CK-2) CK-MB (CK-2) Rel Index Total Protein Albumin Urine WBC (Auto) Vancomycin Trough Salicylates Acetaminophen Plasma/Serum Alcohol Crossmatch 01/07/20 01/07/20 01/07/20 04:12 04:45 11:51 WBC RBC Hgb Hct MCH RDW Plt Count Lymph % (Auto) [place] % (Auto) [place] # Baso # Seg Neutrophils % Seg Neuts % (Manual) Lymphocytes % (Manual) Monocytes % (Manual) Seg Neutrophils # Seg Neutrophils # Man Lymphocytes # (Manual) Monocytes # (Manual) Eosinophils # (Manual) Basophils # (Manual) PT INR APTT ABG pH ABG pO2 ABG HCO3 ABG O2 Saturation ABG Base Excess ABG Hemoglobin Oxyhemoglobin Sodium 136 L Potassium Chloride Carbon Dioxide 21 L BUN 44 H Creatinine 0.6 L Glucose 124 H POC Glucose 134 H 138 H Lactic Acid Calcium Ionized Calcium Phosphorus Magnesium Total Bilirubin AST ALT Alkaline Phosphatase Ammonia Total Creatine Kinase CK-MB (CK-2) CK-MB (CK-2) Rel Index Total Protein Albumin Urine WBC (Auto) Vancomycin Trough Salicylates Acetaminophen Plasma/Serum Alcohol Crossmatch 01/07/20 01/08/20 01/08/20 17:36 00:33 05:29 WBC RBC Hgb Hct MCH RDW Plt Count Lymph % (Auto) [place] % (Auto) [place] # Baso # Seg Neutrophils % Seg Neuts % (Manual) Lymphocytes % (Manual) Monocytes % (Manual) Seg Neutrophils # Seg Neutrophils # Man Lymphocytes # (Manual) Monocytes # (Manual) Eosinophils # (Manual) Basophils # (Manual) PT INR APTT ABG pH ABG pO2 ABG HCO3 ABG O2 Saturation ABG Base Excess ABG Hemoglobin Oxyhemoglobin Sodium Potassium Chloride Carbon Dioxide BUN Creatinine Glucose POC Glucose 128 H 119 H 124 H Lactic Acid Calcium Ionized Calcium Phosphorus Magnesium Total Bilirubin AST ALT Alkaline Phosphatase Ammonia Total Creatine Kinase CK-MB (CK-2) CK-MB (CK-2) Rel Index Total Protein Albumin Urine WBC (Auto) Vancomycin Trough Salicylates Acetaminophen Plasma/Serum Alcohol Crossmatch 01/08/20 01/08/20 01/08/20 12:51 20:25 23:22 WBC RBC Hgb Hct MCH RDW Plt Count Lymph % (Auto) [place] % (Auto) [place] # Baso # Seg Neutrophils % Seg Neuts % (Manual) Lymphocytes % (Manual) Monocytes % (Manual) Seg Neutrophils # Seg Neutrophils # Man Lymphocytes # (Manual) Monocytes # (Manual) Eosinophils # (Manual) Basophils # (Manual) PT INR APTT ABG pH ABG pO2 132.2 H ABG HCO3 ABG O2 Saturation ABG Base Excess ABG Hemoglobin Oxyhemoglobin Sodium Potassium Chloride Carbon Dioxide BUN Creatinine Glucose POC Glucose 128 H 127 H Lactic Acid Calcium Ionized Calcium Phosphorus Magnesium Total Bilirubin AST ALT Alkaline Phosphatase Ammonia Total Creatine Kinase CK-MB (CK-2) CK-MB (CK-2) Rel Index Total Protein Albumin Urine WBC (Auto) Vancomycin Trough Salicylates Acetaminophen Plasma/Serum Alcohol Crossmatch 01/09/20 01/09/20 01/09/20 05:48 08:51 11:29 WBC RBC Hgb Hct MCH RDW Plt Count Lymph % (Auto) [place] % (Auto) [place] # Baso # Seg Neutrophils % Seg Neuts % (Manual) Lymphocytes % (Manual) Monocytes % (Manual) Seg Neutrophils # Seg Neutrophils # Man Lymphocytes # (Manual) Monocytes # (Manual) Eosinophils # (Manual) Basophils # (Manual) PT INR APTT ABG pH ABG pO2 94.3 H ABG HCO3 ABG O2 Saturation ABG Base Excess ABG Hemoglobin 9.5 L Oxyhemoglobin Sodium Potassium Chloride Carbon Dioxide BUN Creatinine Glucose POC Glucose 120 H 112 H Lactic Acid Calcium Ionized Calcium Phosphorus Magnesium Total Bilirubin AST ALT Alkaline Phosphatase Ammonia Total Creatine Kinase CK-MB (CK-2) CK-MB (CK-2) Rel Index Total Protein Albumin Urine WBC (Auto) Vancomycin Trough Salicylates Acetaminophen Plasma/Serum Alcohol Crossmatch 01/09/20 01/10/20 01/10/20 17:57 05:17 12:28 WBC RBC Hgb Hct MCH RDW Plt Count Lymph % (Auto) [place] % (Auto) [place] # Baso # Seg Neutrophils % Seg Neuts % (Manual) Lymphocytes % (Manual) Monocytes % (Manual) Seg Neutrophils # Seg Neutrophils # Man Lymphocytes # (Manual) Monocytes # (Manual) Eosinophils # (Manual) Basophils # (Manual) PT INR APTT ABG pH ABG pO2 ABG HCO3 ABG O2 Saturation ABG Base Excess ABG Hemoglobin Oxyhemoglobin Sodium Potassium Chloride Carbon Dioxide BUN Creatinine Glucose POC Glucose 122 H 115 H 116 H Lactic Acid Calcium Ionized Calcium Phosphorus Magnesium Total Bilirubin AST ALT Alkaline Phosphatase Ammonia Total Creatine Kinase CK-MB (CK-2) CK-MB (CK-2) Rel Index Total Protein Albumin Urine WBC (Auto) Vancomycin Trough Salicylates Acetaminophen Plasma/Serum Alcohol Crossmatch 01/10/20 01/10/20 01/11/20 18:25 23:47 06:05 WBC RBC Hgb Hct MCH RDW Plt Count Lymph % (Auto) [place] % (Auto) [place] # Baso # Seg Neutrophils % Seg Neuts % (Manual) Lymphocytes % (Manual) Monocytes % (Manual) Seg Neutrophils # Seg Neutrophils # Man Lymphocytes # (Manual) Monocytes # (Manual) Eosinophils # (Manual) Basophils # (Manual) PT INR APTT ABG pH ABG pO2 ABG HCO3 ABG O2 Saturation ABG Base Excess ABG Hemoglobin Oxyhemoglobin Sodium Potassium Chloride Carbon Dioxide BUN Creatinine Glucose POC Glucose 123 H 115 H 151 H Lactic Acid Calcium Ionized Calcium Phosphorus Magnesium Total Bilirubin AST ALT Alkaline Phosphatase Ammonia Total Creatine Kinase CK-MB (CK-2) CK-MB (CK-2) Rel Index Total Protein Albumin Urine WBC (Auto) Vancomycin Trough Salicylates Acetaminophen Plasma/Serum Alcohol Crossmatch 01/11/20 01/11/20 01/11/20 07:00 07:00 12:27 WBC 11.8 H RBC 3.40 L Hgb 9.4 L Hct 29.3 L MCH RDW 18.1 H Plt Count 549 H Lymph % (Auto) [place] % (Auto) 9.1 H [place] # 1.1 H Baso # Seg Neutrophils % 73.3 H Seg Neuts % (Manual) Lymphocytes % (Manual) Monocytes % (Manual) Seg Neutrophils # 8.7 H Seg Neutrophils # Man Lymphocytes # (Manual) Monocytes # (Manual) Eosinophils # (Manual) Basophils # (Manual) PT INR APTT ABG pH ABG pO2 ABG HCO3 ABG O2 Saturation ABG Base Excess ABG Hemoglobin Oxyhemoglobin Sodium 134 L Potassium Chloride 97.7 L Carbon Dioxide 21 L BUN 38 H Creatinine 0.5 L Glucose 168 H POC Glucose 117 H Lactic Acid Calcium 10.5 H Ionized Calcium Phosphorus Magnesium Total Bilirubin AST ALT Alkaline Phosphatase Ammonia Total Creatine Kinase CK-MB (CK-2) CK-MB (CK-2) Rel Index Total Protein Albumin Urine WBC (Auto) Vancomycin Trough Salicylates Acetaminophen Plasma/Serum Alcohol Crossmatch 01/11/20 01/12/20 01/12/20 18:19 00:53 05:24 WBC RBC Hgb Hct MCH RDW Plt Count Lymph % (Auto) [place] % (Auto) [place] # Baso # Seg Neutrophils % Seg Neuts % (Manual) Lymphocytes % (Manual) Monocytes % (Manual) Seg Neutrophils # Seg Neutrophils # Man Lymphocytes # (Manual) Monocytes # (Manual) Eosinophils # (Manual) Basophils # (Manual) PT INR APTT ABG pH ABG pO2 ABG HCO3 ABG O2 Saturation ABG Base Excess ABG Hemoglobin Oxyhemoglobin Sodium Potassium Chloride Carbon Dioxide BUN Creatinine Glucose POC Glucose 126 H 126 H 128 H Lactic Acid Calcium Ionized Calcium Phosphorus Magnesium Total Bilirubin AST ALT Alkaline Phosphatase Ammonia Total Creatine Kinase CK-MB (CK-2) CK-MB (CK-2) Rel Index Total Protein Albumin Urine WBC (Auto) Vancomycin Trough Salicylates Acetaminophen Plasma/Serum Alcohol Crossmatch 01/12/20 01/12/20 01/13/20 13:39 18:02 00:27 WBC RBC Hgb Hct MCH RDW Plt Count Lymph % (Auto) [place] % (Auto) [place] # Baso # Seg Neutrophils % Seg Neuts % (Manual) Lymphocytes % (Manual) Monocytes % (Manual) Seg Neutrophils # Seg Neutrophils # Man Lymphocytes # (Manual) Monocytes # (Manual) Eosinophils # (Manual) Basophils # (Manual) PT INR APTT ABG pH ABG pO2 ABG HCO3 ABG O2 Saturation ABG Base Excess ABG Hemoglobin Oxyhemoglobin Sodium Potassium Chloride Carbon Dioxide BUN Creatinine Glucose POC Glucose 146 H 125 H 131 H Lactic Acid Calcium Ionized Calcium Phosphorus Magnesium Total Bilirubin AST ALT Alkaline Phosphatase Ammonia Total Creatine Kinase CK-MB (CK-2) CK-MB (CK-2) Rel Index Total Protein Albumin Urine WBC (Auto) Vancomycin Trough Salicylates Acetaminophen Plasma/Serum Alcohol Crossmatch 01/13/20 01/13/20 01/13/20 05:44 11:54 17:18 WBC RBC Hgb Hct MCH RDW Plt Count Lymph % (Auto) [place] % (Auto) [place] # Baso # Seg Neutrophils % Seg Neuts % (Manual) Lymphocytes % (Manual) Monocytes % (Manual) Seg Neutrophils # Seg Neutrophils # Man Lymphocytes # (Manual) Monocytes # (Manual) Eosinophils # (Manual) Basophils # (Manual) PT INR APTT ABG pH ABG pO2 ABG HCO3 ABG O2 Saturation ABG Base Excess ABG Hemoglobin Oxyhemoglobin Sodium Potassium Chloride Carbon Dioxide BUN Creatinine Glucose POC Glucose 148 H 140 H 130 H Lactic Acid Calcium Ionized Calcium Phosphorus Magnesium Total Bilirubin AST ALT Alkaline Phosphatase Ammonia Total Creatine Kinase CK-MB (CK-2) CK-MB (CK-2) Rel Index Total Protein Albumin Urine WBC (Auto) Vancomycin Trough Salicylates Acetaminophen Plasma/Serum Alcohol Crossmatch 01/14/20 01/14/20 01/14/20 00:16 05:45 12:19 WBC RBC Hgb Hct MCH RDW Plt Count Lymph % (Auto) [place] % (Auto) [place] # Baso # Seg Neutrophils % Seg Neuts % (Manual) Lymphocytes % (Manual) Monocytes % (Manual) Seg Neutrophils # Seg Neutrophils # Man Lymphocytes # (Manual) Monocytes # (Manual) Eosinophils # (Manual) Basophils # (Manual) PT INR APTT ABG pH ABG pO2 ABG HCO3 ABG O2 Saturation ABG Base Excess ABG Hemoglobin Oxyhemoglobin Sodium Potassium Chloride Carbon Dioxide BUN Creatinine Glucose POC Glucose 125 H 146 H 147 H Lactic Acid Calcium Ionized Calcium Phosphorus Magnesium Total Bilirubin AST ALT Alkaline Phosphatase Ammonia Total Creatine Kinase CK-MB (CK-2) CK-MB (CK-2) Rel Index Total Protein Albumin Urine WBC (Auto) Vancomycin Trough Salicylates Acetaminophen Plasma/Serum Alcohol Crossmatch 01/14/20 01/14/20 01/15/20 18:10 23:54 05:14 WBC RBC Hgb Hct MCH RDW Plt Count Lymph % (Auto) [place] % (Auto) [place] # Baso # Seg Neutrophils % Seg Neuts % (Manual) Lymphocytes % (Manual) Monocytes % (Manual) Seg Neutrophils # Seg Neutrophils # Man Lymphocytes # (Manual) Monocytes # (Manual) Eosinophils # (Manual) Basophils # (Manual) PT INR APTT ABG pH ABG pO2 ABG HCO3 ABG O2 Saturation ABG Base Excess ABG Hemoglobin Oxyhemoglobin Sodium Potassium Chloride Carbon Dioxide BUN Creatinine Glucose POC Glucose 136 H 109 H 111 H Lactic Acid Calcium Ionized Calcium Phosphorus Magnesium Total Bilirubin AST ALT Alkaline Phosphatase Ammonia Total Creatine Kinase CK-MB (CK-2) CK-MB (CK-2) Rel Index Total Protein Albumin Urine WBC (Auto) Vancomycin Trough Salicylates Acetaminophen Plasma/Serum Alcohol Crossmatch 01/15/20 01/15/20 01/16/20 12:34 23:25 05:06 WBC RBC Hgb Hct MCH RDW Plt Count Lymph % (Auto) [place] % (Auto) [place] # Baso # Seg Neutrophils % Seg Neuts % (Manual) Lymphocytes % (Manual) Monocytes % (Manual) Seg Neutrophils # Seg Neutrophils # Man Lymphocytes # (Manual) Monocytes # (Manual) Eosinophils # (Manual) Basophils # (Manual) PT INR APTT ABG pH ABG pO2 ABG HCO3 ABG O2 Saturation ABG Base Excess ABG Hemoglobin Oxyhemoglobin Sodium Potassium Chloride Carbon Dioxide BUN Creatinine Glucose POC Glucose 131 H 120 H 121 H Lactic Acid Calcium Ionized Calcium Phosphorus Magnesium Total Bilirubin AST ALT Alkaline Phosphatase Ammonia Total Creatine Kinase CK-MB (CK-2) CK-MB (CK-2) Rel Index Total Protein Albumin Urine WBC (Auto) Vancomycin Trough Salicylates Acetaminophen Plasma/Serum Alcohol Crossmatch 01/16/20 01/16/20 01/17/20 12:15 23:46 05:32 WBC 13.6 H RBC 3.27 L Hgb 9.3 L Hct 28.5 L MCH RDW 17.0 H Plt Count 490 H Lymph % (Auto) 13.1 L [place] % (Auto) [place] # 1.0 H Baso # Seg Neutrophils % 77.5 H Seg Neuts % (Manual) Lymphocytes % (Manual) Monocytes % (Manual) Seg Neutrophils # 10.5 H Seg Neutrophils # Man Lymphocytes # (Manual) Monocytes # (Manual) Eosinophils # (Manual) Basophils # (Manual) PT INR APTT ABG pH ABG pO2 ABG HCO3 ABG O2 Saturation ABG Base Excess ABG Hemoglobin Oxyhemoglobin Sodium Potassium Chloride Carbon Dioxide BUN Creatinine Glucose POC Glucose 152 H 107 H Lactic Acid Calcium Ionized Calcium Phosphorus Magnesium Total Bilirubin AST ALT Alkaline Phosphatase Ammonia Total Creatine Kinase CK-MB (CK-2) CK-MB (CK-2) Rel Index Total Protein Albumin Urine WBC (Auto) Vancomycin Trough Salicylates Acetaminophen Plasma/Serum Alcohol Crossmatch 01/17/20 01/17/20 01/17/20 06:47 12:16 17:21 WBC RBC Hgb Hct MCH RDW Plt Count Lymph % (Auto) [place] % (Auto) [place] # Baso # Seg Neutrophils % Seg Neuts % (Manual) Lymphocytes % (Manual) Monocytes % (Manual) Seg Neutrophils # Seg Neutrophils # Man Lymphocytes # (Manual) Monocytes # (Manual) Eosinophils # (Manual) Basophils # (Manual) PT INR APTT ABG pH ABG pO2 ABG HCO3 ABG O2 Saturation ABG Base Excess ABG Hemoglobin Oxyhemoglobin Sodium Potassium Chloride Carbon Dioxide BUN Creatinine Glucose POC Glucose 112 H 145 H 150 H Lactic Acid Calcium Ionized Calcium Phosphorus Magnesium Total Bilirubin AST ALT Alkaline Phosphatase Ammonia Total Creatine Kinase CK-MB (CK-2) CK-MB (CK-2) Rel Index Total Protein Albumin Urine WBC (Auto) Vancomycin Trough Salicylates Acetaminophen Plasma/Serum Alcohol Crossmatch 01/17/20 01/18/20 01/18/20 23:34 05:47 12:43 WBC RBC Hgb Hct MCH RDW Plt Count Lymph % (Auto) [place] % (Auto) [place] # Baso # Seg Neutrophils % Seg Neuts % (Manual) Lymphocytes % (Manual) Monocytes % (Manual) Seg Neutrophils # Seg Neutrophils # Man Lymphocytes # (Manual) Monocytes # (Manual) Eosinophils # (Manual) Basophils # (Manual) PT INR APTT ABG pH ABG pO2 ABG HCO3 ABG O2 Saturation ABG Base Excess ABG Hemoglobin Oxyhemoglobin Sodium Potassium Chloride Carbon Dioxide BUN Creatinine Glucose POC Glucose 160 H 130 H 124 H Lactic Acid Calcium Ionized Calcium Phosphorus Magnesium Total Bilirubin AST ALT Alkaline Phosphatase Ammonia Total Creatine Kinase CK-MB (CK-2) CK-MB (CK-2) Rel Index Total Protein Albumin Urine WBC (Auto) Vancomycin Trough Salicylates Acetaminophen Plasma/Serum Alcohol Crossmatch 01/18/20 01/19/20 01/19/20 18:26 00:14 06:24 WBC RBC Hgb Hct MCH RDW Plt Count Lymph % (Auto) [place] % (Auto) [place] # Baso # Seg Neutrophils % Seg Neuts % (Manual) Lymphocytes % (Manual) Monocytes % (Manual) Seg Neutrophils # Seg Neutrophils # Man Lymphocytes # (Manual) Monocytes # (Manual) Eosinophils # (Manual) Basophils # (Manual) PT INR APTT ABG pH ABG pO2 ABG HCO3 ABG O2 Saturation ABG Base Excess ABG Hemoglobin Oxyhemoglobin Sodium Potassium Chloride Carbon Dioxide BUN Creatinine Glucose POC Glucose 119 H 114 H 144 H Lactic Acid Calcium Ionized Calcium Phosphorus Magnesium Total Bilirubin AST ALT Alkaline Phosphatase Ammonia Total Creatine Kinase CK-MB (CK-2) CK-MB (CK-2) Rel Index Total Protein Albumin Urine WBC (Auto) Vancomycin Trough Salicylates Acetaminophen Plasma/Serum Alcohol Crossmatch 01/19/20 01/19/20 01/20/20 12:24 17:50 12:06 WBC RBC Hgb Hct MCH RDW Plt Count Lymph % (Auto) [place] % (Auto) [place] # Baso # Seg Neutrophils % Seg Neuts % (Manual) Lymphocytes % (Manual) Monocytes % (Manual) Seg Neutrophils # Seg Neutrophils # Man Lymphocytes # (Manual) Monocytes # (Manual) Eosinophils # (Manual) Basophils # (Manual) PT INR APTT ABG pH ABG pO2 ABG HCO3 ABG O2 Saturation ABG Base Excess ABG Hemoglobin Oxyhemoglobin Sodium Potassium Chloride Carbon Dioxide BUN Creatinine Glucose POC Glucose 132 H 144 H 135 H Lactic Acid Calcium Ionized Calcium Phosphorus Magnesium Total Bilirubin AST ALT Alkaline Phosphatase Ammonia Total Creatine Kinase CK-MB (CK-2) CK-MB (CK-2) Rel Index Total Protein Albumin Urine WBC (Auto) Vancomycin Trough Salicylates Acetaminophen Plasma/Serum Alcohol Crossmatch 01/21/20 01/21/20 01/21/20 05:46 13:02 23:49 WBC RBC Hgb Hct MCH RDW Plt Count Lymph % (Auto) [place] % (Auto) [place] # Baso # Seg Neutrophils % Seg Neuts % (Manual) Lymphocytes % (Manual) Monocytes % (Manual) Seg Neutrophils # Seg Neutrophils # Man Lymphocytes # (Manual) Monocytes # (Manual) Eosinophils # (Manual) Basophils # (Manual) PT INR APTT ABG pH ABG pO2 ABG HCO3 ABG O2 Saturation ABG Base Excess ABG Hemoglobin Oxyhemoglobin Sodium Potassium Chloride Carbon Dioxide BUN Creatinine Glucose POC Glucose 114 H 136 H 120 H Lactic Acid Calcium Ionized Calcium Phosphorus Magnesium Total Bilirubin AST ALT Alkaline Phosphatase Ammonia Total Creatine Kinase CK-MB (CK-2) CK-MB (CK-2) Rel Index Total Protein Albumin Urine WBC (Auto) Vancomycin Trough Salicylates Acetaminophen Plasma/Serum Alcohol Crossmatch 01/22/20 01/22/20 01/22/20 05:41 11:44 16:31 WBC RBC Hgb Hct MCH RDW Plt Count Lymph % (Auto) [place] % (Auto) [place] # Baso # Seg Neutrophils % Seg Neuts % (Manual) Lymphocytes % (Manual) Monocytes % (Manual) Seg Neutrophils # Seg Neutrophils # Man Lymphocytes # (Manual) Monocytes # (Manual) Eosinophils # (Manual) Basophils # (Manual) PT INR APTT ABG pH ABG pO2 ABG HCO3 ABG O2 Saturation ABG Base Excess ABG Hemoglobin Oxyhemoglobin Sodium Potassium Chloride Carbon Dioxide BUN Creatinine Glucose POC Glucose 124 H 173 H 111 H Lactic Acid Calcium Ionized Calcium Phosphorus Magnesium Total Bilirubin AST ALT Alkaline Phosphatase Ammonia Total Creatine Kinase CK-MB (CK-2) CK-MB (CK-2) Rel Index Total Protein Albumin Urine WBC (Auto) Vancomycin Trough Salicylates Acetaminophen Plasma/Serum Alcohol Crossmatch 01/22/20 01/23/20 01/23/20 23:25 05:15 12:15 WBC RBC Hgb Hct MCH RDW Plt Count Lymph % (Auto) [place] % (Auto) [place] # Baso # Seg Neutrophils % Seg Neuts % (Manual) Lymphocytes % (Manual) Monocytes % (Manual) Seg Neutrophils # Seg Neutrophils # Man Lymphocytes # (Manual) Monocytes # (Manual) Eosinophils # (Manual) Basophils # (Manual) PT INR APTT ABG pH ABG pO2 ABG HCO3 ABG O2 Saturation ABG Base Excess ABG Hemoglobin Oxyhemoglobin Sodium Potassium Chloride Carbon Dioxide BUN Creatinine Glucose POC Glucose 134 H 117 H 129 H Lactic Acid Calcium Ionized Calcium Phosphorus Magnesium Total Bilirubin AST ALT Alkaline Phosphatase Ammonia Total Creatine Kinase CK-MB (CK-2) CK-MB (CK-2) Rel Index Total Protein Albumin Urine WBC (Auto) Vancomycin Trough Salicylates Acetaminophen Plasma/Serum Alcohol Crossmatch 01/23/20 01/23/20 01/23/20 16:58 21:17 23:47 WBC RBC Hgb Hct MCH RDW Plt Count Lymph % (Auto) [place] % (Auto) [place] # Baso # Seg Neutrophils % Seg Neuts % (Manual) Lymphocytes % (Manual) Monocytes % (Manual) Seg Neutrophils # Seg Neutrophils # Man Lymphocytes # (Manual) Monocytes # (Manual) Eosinophils # (Manual) Basophils # (Manual) PT INR APTT ABG pH ABG pO2 ABG HCO3 ABG O2 Saturation ABG Base Excess ABG Hemoglobin Oxyhemoglobin Sodium Potassium Chloride Carbon Dioxide BUN Creatinine Glucose POC Glucose 156 H 185 H 156 H Lactic Acid Calcium Ionized Calcium Phosphorus Magnesium Total Bilirubin AST ALT Alkaline Phosphatase Ammonia Total Creatine Kinase CK-MB (CK-2) CK-MB (CK-2) Rel Index Total Protein Albumin Urine WBC (Auto) Vancomycin Trough Salicylates Acetaminophen Plasma/Serum Alcohol Crossmatch 01/24/20 01/24/20 01/24/20 04:47 04:47 05:59 WBC 17.8 H RBC 3.60 L Hgb Hct MCH RDW 16.2 H Plt Count 688 H Lymph % (Auto) 11.8 L [place] % (Auto) 7.5 H [place] # 1.3 H Baso # Seg Neutrophils % 79.9 H Seg Neuts % (Manual) Lymphocytes % (Manual) Monocytes % (Manual) Seg Neutrophils # 14.2 H Seg Neutrophils # Man Lymphocytes # (Manual) Monocytes # (Manual) Eosinophils # (Manual) Basophils # (Manual) PT INR APTT ABG pH ABG pO2 ABG HCO3 ABG O2 Saturation ABG Base Excess ABG Hemoglobin Oxyhemoglobin Sodium 131 L Potassium Chloride 91.2 L Carbon Dioxide BUN 22 H Creatinine 0.3 L Glucose 123 H POC Glucose 147 H Lactic Acid Calcium 10.9 H Ionized Calcium Phosphorus Magnesium Total Bilirubin AST ALT Alkaline Phosphatase Ammonia Total Creatine Kinase CK-MB (CK-2) CK-MB (CK-2) Rel Index Total Protein Albumin Urine WBC (Auto) Vancomycin Trough Salicylates Acetaminophen Plasma/Serum Alcohol Crossmatch 01/24/20 01/24/20 01/25/20 11:47 16:45 00:18 WBC RBC Hgb Hct MCH RDW Plt Count Lymph % (Auto) [place] % (Auto) [place] # Baso # Seg Neutrophils % Seg Neuts % (Manual) Lymphocytes % (Manual) Monocytes % (Manual) Seg Neutrophils # Seg Neutrophils # Man Lymphocytes # (Manual) Monocytes # (Manual) Eosinophils # (Manual) Basophils # (Manual) PT INR APTT ABG pH ABG pO2 ABG HCO3 ABG O2 Saturation ABG Base Excess ABG Hemoglobin Oxyhemoglobin Sodium Potassium Chloride Carbon Dioxide BUN Creatinine Glucose POC Glucose 114 H 108 H 119 H Lactic Acid Calcium Ionized Calcium Phosphorus Magnesium Total Bilirubin AST ALT Alkaline Phosphatase Ammonia Total Creatine Kinase CK-MB (CK-2) CK-MB (CK-2) Rel Index Total Protein Albumin Urine WBC (Auto) Vancomycin Trough Salicylates Acetaminophen Plasma/Serum Alcohol Crossmatch 01/25/20 01/25/20 01/25/20 07:18 11:58 16:56 WBC RBC Hgb Hct MCH RDW Plt Count Lymph % (Auto) [place] % (Auto) [place] # Baso # Seg Neutrophils % Seg Neuts % (Manual) Lymphocytes % (Manual) Monocytes % (Manual) Seg Neutrophils # Seg Neutrophils # Man Lymphocytes # (Manual) Monocytes # (Manual) Eosinophils # (Manual) Basophils # (Manual) PT INR APTT ABG pH ABG pO2 ABG HCO3 ABG O2 Saturation ABG Base Excess ABG Hemoglobin Oxyhemoglobin Sodium Potassium Chloride Carbon Dioxide BUN Creatinine Glucose POC Glucose 136 H 136 H 147 H Lactic Acid Calcium Ionized Calcium Phosphorus Magnesium Total Bilirubin AST ALT Alkaline Phosphatase Ammonia Total Creatine Kinase CK-MB (CK-2) CK-MB (CK-2) Rel Index Total Protein Albumin Urine WBC (Auto) Vancomycin Trough Salicylates Acetaminophen Plasma/Serum Alcohol Crossmatch 01/26/20 01/26/20 01/26/20 00:29 05:59 05:59 WBC 12.8 H RBC Hgb Hct MCH RDW 16.4 H Plt Count 743 H Lymph % (Auto) [place] % (Auto) [place] # 0.9 H Baso # Seg Neutrophils % 76.2 H Seg Neuts % (Manual) Lymphocytes % (Manual) Monocytes % (Manual) Seg Neutrophils # 9.8 H Seg Neutrophils # Man Lymphocytes # (Manual) Monocytes # (Manual) Eosinophils # (Manual) Basophils # (Manual) PT INR APTT ABG pH ABG pO2 ABG HCO3 ABG O2 Saturation ABG Base Excess ABG Hemoglobin Oxyhemoglobin Sodium 132 L Potassium Chloride 90.9 L Carbon Dioxide BUN 23 H Creatinine 0.4 L Glucose 122 H POC Glucose 107 H Lactic Acid Calcium 11.0 H Ionized Calcium Phosphorus Magnesium Total Bilirubin AST ALT Alkaline Phosphatase Ammonia Total Creatine Kinase CK-MB (CK-2) CK-MB (CK-2) Rel Index Total Protein Albumin Urine WBC (Auto) Vancomycin Trough Salicylates Acetaminophen Plasma/Serum Alcohol Crossmatch 01/26/20 01/26/20 01/26/20 06:27 12:06 16:49 WBC RBC Hgb Hct MCH RDW Plt Count Lymph % (Auto) [place] % (Auto) [place] # Baso # Seg Neutrophils % Seg Neuts % (Manual) Lymphocytes % (Manual) Monocytes % (Manual) Seg Neutrophils # Seg Neutrophils # Man Lymphocytes # (Manual) Monocytes # (Manual) Eosinophils # (Manual) Basophils # (Manual) PT INR APTT ABG pH ABG pO2 ABG HCO3 ABG O2 Saturation ABG Base Excess ABG Hemoglobin Oxyhemoglobin Sodium Potassium Chloride Carbon Dioxide BUN Creatinine Glucose POC Glucose 132 H 132 H 110 H Lactic Acid Calcium Ionized Calcium Phosphorus Magnesium Total Bilirubin AST ALT Alkaline Phosphatase Ammonia Total Creatine Kinase CK-MB (CK-2) CK-MB (CK-2) Rel Index Total Protein Albumin Urine WBC (Auto) Vancomycin Trough Salicylates Acetaminophen Plasma/Serum Alcohol Crossmatch 01/27/20 01/27/20 01/27/20 00:08 11:49 16:24 WBC RBC Hgb Hct MCH RDW Plt Count Lymph % (Auto) [place] % (Auto) [place] # Baso # Seg Neutrophils % Seg Neuts % (Manual) Lymphocytes % (Manual) Monocytes % (Manual) Seg Neutrophils # Seg Neutrophils # Man Lymphocytes # (Manual) Monocytes # (Manual) Eosinophils # (Manual) Basophils # (Manual) PT INR APTT ABG pH ABG pO2 ABG HCO3 ABG O2 Saturation ABG Base Excess ABG Hemoglobin Oxyhemoglobin Sodium Potassium Chloride Carbon Dioxide BUN Creatinine Glucose POC Glucose 107 H 119 H 129 H Lactic Acid Calcium Ionized Calcium Phosphorus Magnesium Total Bilirubin AST ALT Alkaline Phosphatase Ammonia Total Creatine Kinase CK-MB (CK-2) CK-MB (CK-2) Rel Index Total Protein Albumin Urine WBC (Auto) Vancomycin Trough Salicylates Acetaminophen Plasma/Serum Alcohol Crossmatch 01/27/20 01/28/20 01/28/20 18:28 01:00 06:22 WBC RBC Hgb Hct MCH RDW Plt Count Lymph % (Auto) [place] % (Auto) [place] # Baso # Seg Neutrophils % Seg Neuts % (Manual) Lymphocytes % (Manual) Monocytes % (Manual) Seg Neutrophils # Seg Neutrophils # Man Lymphocytes # (Manual) Monocytes # (Manual) Eosinophils # (Manual) Basophils # (Manual) PT INR APTT ABG pH ABG pO2 ABG HCO3 ABG O2 Saturation ABG Base Excess ABG Hemoglobin Oxyhemoglobin Sodium Potassium Chloride Carbon Dioxide BUN Creatinine Glucose POC Glucose 126 H 121 H 114 H Lactic Acid Calcium Ionized Calcium Phosphorus Magnesium Total Bilirubin AST ALT Alkaline Phosphatase Ammonia Total Creatine Kinase CK-MB (CK-2) CK-MB (CK-2) Rel Index Total Protein Albumin Urine WBC (Auto) Vancomycin Trough Salicylates Acetaminophen Plasma/Serum Alcohol Crossmatch 01/28/20 01/28/20 01/29/20 11:47 18:00 00:05 WBC RBC Hgb Hct MCH RDW Plt Count Lymph % (Auto) [place] % (Auto) [place] # Baso # Seg Neutrophils % Seg Neuts % (Manual) Lymphocytes % (Manual) Monocytes % (Manual) Seg Neutrophils # Seg Neutrophils # Man Lymphocytes # (Manual) Monocytes # (Manual) Eosinophils # (Manual) Basophils # (Manual) PT INR APTT ABG pH ABG pO2 ABG HCO3 ABG O2 Saturation ABG Base Excess ABG Hemoglobin Oxyhemoglobin Sodium Potassium Chloride Carbon Dioxide BUN Creatinine Glucose POC Glucose 106 H 117 H 127 H Lactic Acid Calcium Ionized Calcium Phosphorus Magnesium Total Bilirubin AST ALT Alkaline Phosphatase Ammonia Total Creatine Kinase CK-MB (CK-2) CK-MB (CK-2) Rel Index Total Protein Albumin Urine WBC (Auto) Vancomycin Trough Salicylates Acetaminophen Plasma/Serum Alcohol Crossmatch 01/29/20 01/29/20 01/29/20 06:04 11:40 16:38 WBC RBC Hgb Hct MCH RDW Plt Count Lymph % (Auto) [place] % (Auto) [place] # Baso # Seg Neutrophils % Seg Neuts % (Manual) Lymphocytes % (Manual) Monocytes % (Manual) Seg Neutrophils # Seg Neutrophils # Man Lymphocytes # (Manual) Monocytes # (Manual) Eosinophils # (Manual) Basophils # (Manual) PT INR APTT ABG pH ABG pO2 ABG HCO3 ABG O2 Saturation ABG Base Excess ABG Hemoglobin Oxyhemoglobin Sodium Potassium Chloride Carbon Dioxide BUN Creatinine Glucose POC Glucose 147 H 139 H 143 H Lactic Acid Calcium Ionized Calcium Phosphorus Magnesium Total Bilirubin AST ALT Alkaline Phosphatase Ammonia Total Creatine Kinase CK-MB (CK-2) CK-MB (CK-2) Rel Index Total Protein Albumin Urine WBC (Auto) Vancomycin Trough Salicylates Acetaminophen Plasma/Serum Alcohol Crossmatch 01/29/20 01/30/20 01/30/20 23:46 06:43 12:07 WBC RBC Hgb Hct MCH RDW Plt Count Lymph % (Auto) [place] % (Auto) [place] # Baso # Seg Neutrophils % Seg Neuts % (Manual) Lymphocytes % (Manual) Monocytes % (Manual) Seg Neutrophils # Seg Neutrophils # Man Lymphocytes # (Manual) Monocytes # (Manual) Eosinophils # (Manual) Basophils # (Manual) PT INR APTT ABG pH ABG pO2 ABG HCO3 ABG O2 Saturation ABG Base Excess ABG Hemoglobin Oxyhemoglobin Sodium Potassium Chloride Carbon Dioxide BUN Creatinine Glucose POC Glucose 122 H 122 H 134 H Lactic Acid Calcium Ionized Calcium Phosphorus Magnesium Total Bilirubin AST ALT Alkaline Phosphatase Ammonia Total Creatine Kinase CK-MB (CK-2) CK-MB (CK-2) Rel Index Total Protein Albumin Urine WBC (Auto) Vancomycin Trough Salicylates Acetaminophen Plasma/Serum Alcohol Crossmatch 01/30/20 01/31/20 01/31/20 17:59 00:52 05:54 WBC RBC Hgb Hct MCH RDW Plt Count Lymph % (Auto) [place] % (Auto) [place] # Baso # Seg Neutrophils % Seg Neuts % (Manual) Lymphocytes % (Manual) Monocytes % (Manual) Seg Neutrophils # Seg Neutrophils # Man Lymphocytes # (Manual) Monocytes # (Manual) Eosinophils # (Manual) Basophils # (Manual) PT INR APTT ABG pH ABG pO2 ABG HCO3 ABG O2 Saturation ABG Base Excess ABG Hemoglobin Oxyhemoglobin Sodium Potassium Chloride Carbon Dioxide BUN Creatinine Glucose POC Glucose 116 H 127 H 127 H Lactic Acid Calcium Ionized Calcium Phosphorus Magnesium Total Bilirubin AST ALT Alkaline Phosphatase Ammonia Total Creatine Kinase CK-MB (CK-2) CK-MB (CK-2) Rel Index Total Protein Albumin Urine WBC (Auto) Vancomycin Trough Salicylates Acetaminophen Plasma/Serum Alcohol Crossmatch 01/31/20 02/01/20 02/01/20 12:20 00:48 12:21 WBC RBC Hgb Hct MCH RDW Plt Count Lymph % (Auto) [place] % (Auto) [place] # Baso # Seg Neutrophils % Seg Neuts % (Manual) Lymphocytes % (Manual) Monocytes % (Manual) Seg Neutrophils # Seg Neutrophils # Man Lymphocytes # (Manual) Monocytes # (Manual) Eosinophils # (Manual) Basophils # (Manual) PT INR APTT ABG pH ABG pO2 ABG HCO3 ABG O2 Saturation ABG Base Excess ABG Hemoglobin Oxyhemoglobin Sodium Potassium Chloride Carbon Dioxide BUN Creatinine Glucose POC Glucose 126 H 154 H 123 H Lactic Acid Calcium Ionized Calcium Phosphorus Magnesium Total Bilirubin AST ALT Alkaline Phosphatase Ammonia Total Creatine Kinase CK-MB (CK-2) CK-MB (CK-2) Rel Index Total Protein Albumin Urine WBC (Auto) Vancomycin Trough Salicylates Acetaminophen Plasma/Serum Alcohol Crossmatch 02/01/20 02/02/20 02/02/20 23:58 06:08 11:50 WBC RBC Hgb Hct MCH RDW Plt Count Lymph % (Auto) [place] % (Auto) [place] # Baso # Seg Neutrophils % Seg Neuts % (Manual) Lymphocytes % (Manual) Monocytes % (Manual) Seg Neutrophils # Seg Neutrophils # Man Lymphocytes # (Manual) Monocytes # (Manual) Eosinophils # (Manual) Basophils # (Manual) PT INR APTT ABG pH ABG pO2 ABG HCO3 ABG O2 Saturation ABG Base Excess ABG Hemoglobin Oxyhemoglobin Sodium Potassium Chloride Carbon Dioxide BUN Creatinine Glucose POC Glucose 125 H 144 H 131 H Lactic Acid Calcium Ionized Calcium Phosphorus Magnesium Total Bilirubin AST ALT Alkaline Phosphatase Ammonia Total Creatine Kinase CK-MB (CK-2) CK-MB (CK-2) Rel Index Total Protein Albumin Urine WBC (Auto) Vancomycin Trough Salicylates Acetaminophen Plasma/Serum Alcohol Crossmatch 02/02/20 02/03/20 02/03/20 17:53 00:14 05:47 WBC RBC Hgb Hct MCH RDW Plt Count Lymph % (Auto) [place] % (Auto) [place] # Baso # Seg Neutrophils % Seg Neuts % (Manual) Lymphocytes % (Manual) Monocytes % (Manual) Seg Neutrophils # Seg Neutrophils # Man Lymphocytes # (Manual) Monocytes # (Manual) Eosinophils # (Manual) Basophils # (Manual) PT INR APTT ABG pH ABG pO2 ABG HCO3 ABG O2 Saturation ABG Base Excess ABG Hemoglobin Oxyhemoglobin Sodium Potassium Chloride Carbon Dioxide BUN Creatinine Glucose POC Glucose 108 H 122 H 118 H Lactic Acid Calcium Ionized Calcium Phosphorus Magnesium Total Bilirubin AST ALT Alkaline Phosphatase Ammonia Total Creatine Kinase CK-MB (CK-2) CK-MB (CK-2) Rel Index Total Protein Albumin Urine WBC (Auto) Vancomycin Trough Salicylates Acetaminophen Plasma/Serum Alcohol Crossmatch 02/03/20 02/03/20 02/03/20 05:59 05:59 11:49 WBC RBC 3.48 L Hgb Hct 29.9 L MCH RDW 16.2 H Plt Count 707 H Lymph % (Auto) [place] % (Auto) 9.3 H [place] # 0.9 H Baso # Seg Neutrophils % Seg Neuts % (Manual) Lymphocytes % (Manual) Monocytes % (Manual) Seg Neutrophils # Seg Neutrophils # Man Lymphocytes # (Manual) Monocytes # (Manual) Eosinophils # (Manual) Basophils # (Manual) PT INR APTT ABG pH ABG pO2 ABG HCO3 ABG O2 Saturation ABG Base Excess ABG Hemoglobin Oxyhemoglobin Sodium 136 L Potassium Chloride 93.4 L Carbon Dioxide BUN 20 H Creatinine 0.5 L Glucose 101 H POC Glucose 133 H Lactic Acid Calcium 10.8 H Ionized Calcium Phosphorus Magnesium Total Bilirubin AST ALT Alkaline Phosphatase Ammonia Total Creatine Kinase CK-MB (CK-2) CK-MB (CK-2) Rel Index Total Protein Albumin Urine WBC (Auto) Vancomycin Trough Salicylates Acetaminophen Plasma/Serum Alcohol Crossmatch 02/03/20 02/04/20 02/04/20 23:19 05:37 23:56 WBC RBC Hgb Hct MCH RDW Plt Count Lymph % (Auto) [place] % (Auto) [place] # Baso # Seg Neutrophils % Seg Neuts % (Manual) Lymphocytes % (Manual) Monocytes % (Manual) Seg Neutrophils # Seg Neutrophils # Man Lymphocytes # (Manual) Monocytes # (Manual) Eosinophils # (Manual) Basophils # (Manual) PT INR APTT ABG pH ABG pO2 ABG HCO3 ABG O2 Saturation ABG Base Excess ABG Hemoglobin Oxyhemoglobin Sodium Potassium Chloride Carbon Dioxide BUN Creatinine Glucose POC Glucose 135 H 108 H 158 H Lactic Acid Calcium Ionized Calcium Phosphorus Magnesium Total Bilirubin AST ALT Alkaline Phosphatase Ammonia Total Creatine Kinase CK-MB (CK-2) CK-MB (CK-2) Rel Index Total Protein Albumin Urine WBC (Auto) Vancomycin Trough Salicylates Acetaminophen Plasma/Serum Alcohol Crossmatch 02/05/20 02/05/20 02/06/20 05:33 23:24 05:50 WBC RBC Hgb Hct MCH RDW Plt Count Lymph % (Auto) [place] % (Auto) [place] # Baso # Seg Neutrophils % Seg Neuts % (Manual) Lymphocytes % (Manual) Monocytes % (Manual) Seg Neutrophils # Seg Neutrophils # Man Lymphocytes # (Manual) Monocytes # (Manual) Eosinophils # (Manual) Basophils # (Manual) PT INR APTT ABG pH ABG pO2 ABG HCO3 ABG O2 Saturation ABG Base Excess ABG Hemoglobin Oxyhemoglobin Sodium Potassium Chloride Carbon Dioxide BUN Creatinine Glucose POC Glucose 152 H 158 H 110 H Lactic Acid Calcium Ionized Calcium Phosphorus Magnesium Total Bilirubin AST ALT Alkaline Phosphatase Ammonia Total Creatine Kinase CK-MB (CK-2) CK-MB (CK-2) Rel Index Total Protein Albumin Urine WBC (Auto) Vancomycin Trough Salicylates Acetaminophen Plasma/Serum Alcohol Crossmatch 02/06/20 02/07/20 02/07/20 16:03 00:13 05:27 WBC RBC Hgb Hct MCH RDW Plt Count Lymph % (Auto) [place] % (Auto) [place] # Baso # Seg Neutrophils % Seg Neuts % (Manual) Lymphocytes % (Manual) Monocytes % (Manual) Seg Neutrophils # Seg Neutrophils # Man Lymphocytes # (Manual) Monocytes # (Manual) Eosinophils # (Manual) Basophils # (Manual) PT INR APTT ABG pH ABG pO2 ABG HCO3 ABG O2 Saturation ABG Base Excess ABG Hemoglobin Oxyhemoglobin Sodium Potassium Chloride Carbon Dioxide BUN Creatinine Glucose POC Glucose 130 H 115 H 115 H Lactic Acid Calcium Ionized Calcium Phosphorus Magnesium Total Bilirubin AST ALT Alkaline Phosphatase Ammonia Total Creatine Kinase CK-MB (CK-2) CK-MB (CK-2) Rel Index Total Protein Albumin Urine WBC (Auto) Vancomycin Trough Salicylates Acetaminophen Plasma/Serum Alcohol Crossmatch 02/07/20 02/07/20 02/08/20 11:42 17:23 00:37 WBC RBC Hgb Hct MCH RDW Plt Count Lymph % (Auto) [place] % (Auto) [place] # Baso # Seg Neutrophils % Seg Neuts % (Manual) Lymphocytes % (Manual) Monocytes % (Manual) Seg Neutrophils # Seg Neutrophils # Man Lymphocytes # (Manual) Monocytes # (Manual) Eosinophils # (Manual) Basophils # (Manual) PT INR APTT ABG pH ABG pO2 ABG HCO3 ABG O2 Saturation ABG Base Excess ABG Hemoglobin Oxyhemoglobin Sodium Potassium Chloride Carbon Dioxide BUN Creatinine Glucose POC Glucose 113 H 114 H 136 H Lactic Acid Calcium Ionized Calcium Phosphorus Magnesium Total Bilirubin AST ALT Alkaline Phosphatase Ammonia Total Creatine Kinase CK-MB (CK-2) CK-MB (CK-2) Rel Index Total Protein Albumin Urine WBC (Auto) Vancomycin Trough Salicylates Acetaminophen Plasma/Serum Alcohol Crossmatch 02/08/20 02/08/20 02/08/20 08:52 11:42 17:02 WBC RBC Hgb Hct MCH RDW Plt Count Lymph % (Auto) [place] % (Auto) [place] # Baso # Seg Neutrophils % Seg Neuts % (Manual) Lymphocytes % (Manual) Monocytes % (Manual) Seg Neutrophils # Seg Neutrophils # Man Lymphocytes # (Manual) Monocytes # (Manual) Eosinophils # (Manual) Basophils # (Manual) PT INR APTT ABG pH ABG pO2 ABG HCO3 ABG O2 Saturation ABG Base Excess ABG Hemoglobin Oxyhemoglobin Sodium 136 L Potassium Chloride 95.7 L Carbon Dioxide BUN 21 H Creatinine 0.4 L Glucose POC Glucose 128 H 145 H Lactic Acid Calcium 10.4 H Ionized Calcium Phosphorus Magnesium Total Bilirubin AST ALT Alkaline Phosphatase Ammonia Total Creatine Kinase CK-MB (CK-2) CK-MB (CK-2) Rel Index Total Protein Albumin Urine WBC (Auto) Vancomycin Trough Salicylates Acetaminophen Plasma/Serum Alcohol Crossmatch 02/09/20 02/09/20 02/09/20 01:05 11:52 16:19 WBC RBC Hgb Hct MCH RDW Plt Count Lymph % (Auto) [place] % (Auto) [place] # Baso # Seg Neutrophils % Seg Neuts % (Manual) Lymphocytes % (Manual) Monocytes % (Manual) Seg Neutrophils # Seg Neutrophils # Man Lymphocytes # (Manual) Monocytes # (Manual) Eosinophils # (Manual) Basophils # (Manual) PT INR APTT ABG pH ABG pO2 ABG HCO3 ABG O2 Saturation ABG Base Excess ABG Hemoglobin Oxyhemoglobin Sodium Potassium Chloride Carbon Dioxide BUN Creatinine Glucose POC Glucose 117 H 141 H 113 H Lactic Acid Calcium Ionized Calcium Phosphorus Magnesium Total Bilirubin AST ALT Alkaline Phosphatase Ammonia Total Creatine Kinase CK-MB (CK-2) CK-MB (CK-2) Rel Index Total Protein Albumin Urine WBC (Auto) Vancomycin Trough Salicylates Acetaminophen Plasma/Serum Alcohol Crossmatch 02/10/20 02/10/20 02/10/20 05:25 12:50 17:08 WBC RBC Hgb Hct MCH RDW Plt Count Lymph % (Auto) [place] % (Auto) [place] # Baso # Seg Neutrophils % Seg Neuts % (Manual) Lymphocytes % (Manual) Monocytes % (Manual) Seg Neutrophils # Seg Neutrophils # Man Lymphocytes # (Manual) Monocytes # (Manual) Eosinophils # (Manual) Basophils # (Manual) PT INR APTT ABG pH ABG pO2 ABG HCO3 ABG O2 Saturation ABG Base Excess ABG Hemoglobin Oxyhemoglobin Sodium Potassium Chloride Carbon Dioxide BUN Creatinine Glucose POC Glucose 136 H 127 H 111 H Lactic Acid Calcium Ionized Calcium Phosphorus Magnesium Total Bilirubin AST ALT Alkaline Phosphatase Ammonia Total Creatine Kinase CK-MB (CK-2) CK-MB (CK-2) Rel Index Total Protein Albumin Urine WBC (Auto) Vancomycin Trough Salicylates Acetaminophen Plasma/Serum Alcohol Crossmatch 02/10/20 02/11/20 02/11/20 23:55 06:11 12:07 WBC RBC Hgb Hct MCH RDW Plt Count Lymph % (Auto) [place] % (Auto) [place] # Baso # Seg Neutrophils % Seg Neuts % (Manual) Lymphocytes % (Manual) Monocytes % (Manual) Seg Neutrophils # Seg Neutrophils # Man Lymphocytes # (Manual) Monocytes # (Manual) Eosinophils # (Manual) Basophils # (Manual) PT INR APTT ABG pH ABG pO2 ABG HCO3 ABG O2 Saturation ABG Base Excess ABG Hemoglobin Oxyhemoglobin Sodium Potassium Chloride Carbon Dioxide BUN Creatinine Glucose POC Glucose 129 H 128 H 141 H Lactic Acid Calcium Ionized Calcium Phosphorus Magnesium Total Bilirubin AST ALT Alkaline Phosphatase Ammonia Total Creatine Kinase CK-MB (CK-2) CK-MB (CK-2) Rel Index Total Protein Albumin Urine WBC (Auto) Vancomycin Trough Salicylates Acetaminophen Plasma/Serum Alcohol Crossmatch 02/11/20 02/12/20 02/13/20 18:22 02:39 06:45 WBC RBC Hgb Hct MCH RDW Plt Count Lymph % (Auto) [place] % (Auto) [place] # Baso # Seg Neutrophils % Seg Neuts % (Manual) Lymphocytes % (Manual) Monocytes % (Manual) Seg Neutrophils # Seg Neutrophils # Man Lymphocytes # (Manual) Monocytes # (Manual) Eosinophils # (Manual) Basophils # (Manual) PT INR APTT ABG pH ABG pO2 ABG HCO3 ABG O2 Saturation ABG Base Excess ABG Hemoglobin Oxyhemoglobin Sodium Potassium Chloride Carbon Dioxide BUN Creatinine Glucose POC Glucose 118 H 107 H 124 H Lactic Acid Calcium Ionized Calcium Phosphorus Magnesium Total Bilirubin AST ALT Alkaline Phosphatase Ammonia Total Creatine Kinase CK-MB (CK-2) CK-MB (CK-2) Rel Index Total Protein Albumin Urine WBC (Auto) Vancomycin Trough Salicylates Acetaminophen Plasma/Serum Alcohol Crossmatch 02/13/20 02/13/20 02/14/20 12:26 18:19 00:21 WBC RBC Hgb Hct MCH RDW Plt Count Lymph % (Auto) [place] % (Auto) [place] # Baso # Seg Neutrophils % Seg Neuts % (Manual) Lymphocytes % (Manual) Monocytes % (Manual) Seg Neutrophils # Seg Neutrophils # Man Lymphocytes # (Manual) Monocytes # (Manual) Eosinophils # (Manual) Basophils # (Manual) PT INR APTT ABG pH ABG pO2 ABG HCO3 ABG O2 Saturation ABG Base Excess ABG Hemoglobin Oxyhemoglobin Sodium Potassium Chloride Carbon Dioxide BUN Creatinine Glucose POC Glucose 124 H 118 H 130 H Lactic Acid Calcium Ionized Calcium Phosphorus Magnesium Total Bilirubin AST ALT Alkaline Phosphatase Ammonia Total Creatine Kinase CK-MB (CK-2) CK-MB (CK-2) Rel Index Total Protein Albumin Urine WBC (Auto) Vancomycin Trough Salicylates Acetaminophen Plasma/Serum Alcohol Crossmatch 02/14/20 02/14/20 02/16/20 11:19 16:16 00:58 WBC RBC Hgb Hct MCH RDW Plt Count Lymph % (Auto) [place] % (Auto) [place] # Baso # Seg Neutrophils % Seg Neuts % (Manual) Lymphocytes % (Manual) Monocytes % (Manual) Seg Neutrophils # Seg Neutrophils # Man Lymphocytes # (Manual) Monocytes # (Manual) Eosinophils # (Manual) Basophils # (Manual) PT INR APTT ABG pH ABG pO2 ABG HCO3 ABG O2 Saturation ABG Base Excess ABG Hemoglobin Oxyhemoglobin Sodium Potassium Chloride Carbon Dioxide BUN Creatinine Glucose POC Glucose 135 H 119 H 121 H Lactic Acid Calcium Ionized Calcium Phosphorus Magnesium Total Bilirubin AST ALT Alkaline Phosphatase Ammonia Total Creatine Kinase CK-MB (CK-2) CK-MB (CK-2) Rel Index Total Protein Albumin Urine WBC (Auto) Vancomycin Trough Salicylates Acetaminophen Plasma/Serum Alcohol Crossmatch 02/16/20 02/16/20 02/16/20 12:12 18:22 23:51 WBC RBC Hgb Hct MCH RDW Plt Count Lymph % (Auto) [place] % (Auto) [place] # Baso # Seg Neutrophils % Seg Neuts % (Manual) Lymphocytes % (Manual) Monocytes % (Manual) Seg Neutrophils # Seg Neutrophils # Man Lymphocytes # (Manual) Monocytes # (Manual) Eosinophils # (Manual) Basophils # (Manual) PT INR APTT ABG pH ABG pO2 ABG HCO3 ABG O2 Saturation ABG Base Excess ABG Hemoglobin Oxyhemoglobin Sodium Potassium Chloride Carbon Dioxide BUN Creatinine Glucose POC Glucose 107 H 106 H 128 H Lactic Acid Calcium Ionized Calcium Phosphorus Magnesium Total Bilirubin AST ALT Alkaline Phosphatase Ammonia Total Creatine Kinase CK-MB (CK-2) CK-MB (CK-2) Rel Index Total Protein Albumin Urine WBC (Auto) Vancomycin Trough Salicylates Acetaminophen Plasma/Serum Alcohol Crossmatch 02/17/20 02/17/20 02/17/20 05:50 07:57 07:57 WBC 12.6 H RBC 3.52 L Hgb Hct MCH RDW 15.3 H Plt Count 643 H Lymph % (Auto) [place] % (Auto) 8.0 H [place] # 1.0 H Baso # Seg Neutrophils % Seg Neuts % (Manual) Lymphocytes % (Manual) Monocytes % (Manual) Seg Neutrophils # 8.5 H Seg Neutrophils # Man Lymphocytes # (Manual) Monocytes # (Manual) Eosinophils # (Manual) Basophils # (Manual) PT INR APTT ABG pH ABG pO2 ABG HCO3 ABG O2 Saturation ABG Base Excess ABG Hemoglobin Oxyhemoglobin Sodium Potassium Chloride 96.9 L Carbon Dioxide BUN 21 H Creatinine 0.4 L Glucose 113 H POC Glucose 116 H Lactic Acid Calcium 10.5 H Ionized Calcium Phosphorus Magnesium Total Bilirubin AST ALT Alkaline Phosphatase Ammonia Total Creatine Kinase CK-MB (CK-2) CK-MB (CK-2) Rel Index Total Protein Albumin Urine WBC (Auto) Vancomycin Trough Salicylates Acetaminophen Plasma/Serum Alcohol Crossmatch 02/17/20 02/17/20 02/18/20 12:05 18:16 00:13 WBC RBC Hgb Hct MCH RDW Plt Count Lymph % (Auto) [place] % (Auto) [place] # Baso # Seg Neutrophils % Seg Neuts % (Manual) Lymphocytes % (Manual) Monocytes % (Manual) Seg Neutrophils # Seg Neutrophils # Man Lymphocytes # (Manual) Monocytes # (Manual) Eosinophils # (Manual) Basophils # (Manual) PT INR APTT ABG pH ABG pO2 ABG HCO3 ABG O2 Saturation ABG Base Excess ABG Hemoglobin Oxyhemoglobin Sodium Potassium Chloride Carbon Dioxide BUN Creatinine Glucose POC Glucose 139 H 127 H 144 H Lactic Acid Calcium Ionized Calcium Phosphorus Magnesium Total Bilirubin AST ALT Alkaline Phosphatase Ammonia Total Creatine Kinase CK-MB (CK-2) CK-MB (CK-2) Rel Index Total Protein Albumin Urine WBC (Auto) Vancomycin Trough Salicylates Acetaminophen Plasma/Serum Alcohol Crossmatch 02/18/20 02/18/20 02/19/20 17:41 23:28 05:17 WBC RBC Hgb Hct MCH RDW Plt Count Lymph % (Auto) [place] % (Auto) [place] # Baso # Seg Neutrophils % Seg Neuts % (Manual) Lymphocytes % (Manual) Monocytes % (Manual) Seg Neutrophils # Seg Neutrophils # Man Lymphocytes # (Manual) Monocytes # (Manual) Eosinophils # (Manual) Basophils # (Manual) PT INR APTT ABG pH ABG pO2 ABG HCO3 ABG O2 Saturation ABG Base Excess ABG Hemoglobin Oxyhemoglobin Sodium Potassium Chloride Carbon Dioxide BUN Creatinine Glucose POC Glucose 118 H 166 H 116 H Lactic Acid Calcium Ionized Calcium Phosphorus Magnesium Total Bilirubin AST ALT Alkaline Phosphatase Ammonia Total Creatine Kinase CK-MB (CK-2) CK-MB (CK-2) Rel Index Total Protein Albumin Urine WBC (Auto) Vancomycin Trough Salicylates Acetaminophen Plasma/Serum Alcohol Crossmatch 02/19/20 02/19/20 02/20/20 12:33 17:02 00:12 WBC RBC Hgb Hct MCH RDW Plt Count Lymph % (Auto) [place] % (Auto) [place] # Baso # Seg Neutrophils % Seg Neuts % (Manual) Lymphocytes % (Manual) Monocytes % (Manual) Seg Neutrophils # Seg Neutrophils # Man Lymphocytes # (Manual) Monocytes # (Manual) Eosinophils # (Manual) Basophils # (Manual) PT INR APTT ABG pH ABG pO2 ABG HCO3 ABG O2 Saturation ABG Base Excess ABG Hemoglobin Oxyhemoglobin Sodium Potassium Chloride Carbon Dioxide BUN Creatinine Glucose POC Glucose 115 H 108 H 153 H Lactic Acid Calcium Ionized Calcium Phosphorus Magnesium Total Bilirubin AST ALT Alkaline Phosphatase Ammonia Total Creatine Kinase CK-MB (CK-2) CK-MB (CK-2) Rel Index Total Protein Albumin Urine WBC (Auto) Vancomycin Trough Salicylates Acetaminophen Plasma/Serum Alcohol Crossmatch 02/20/20 02/20/20 02/21/20 12:00 23:13 05:07 WBC RBC Hgb Hct MCH RDW Plt Count Lymph % (Auto) [place] % (Auto) [place] # Baso # Seg Neutrophils % Seg Neuts % (Manual) Lymphocytes % (Manual) Monocytes % (Manual) Seg Neutrophils # Seg Neutrophils # Man Lymphocytes # (Manual) Monocytes # (Manual) Eosinophils # (Manual) Basophils # (Manual) PT INR APTT ABG pH ABG pO2 ABG HCO3 ABG O2 Saturation ABG Base Excess ABG Hemoglobin Oxyhemoglobin Sodium Potassium Chloride Carbon Dioxide BUN Creatinine Glucose POC Glucose 171 H 129 H 116 H Lactic Acid Calcium Ionized Calcium Phosphorus Magnesium Total Bilirubin AST ALT Alkaline Phosphatase Ammonia Total Creatine Kinase CK-MB (CK-2) CK-MB (CK-2) Rel Index Total Protein Albumin Urine WBC (Auto) Vancomycin Trough Salicylates Acetaminophen Plasma/Serum Alcohol Crossmatch 02/21/20 02/22/20 02/22/20 12:15 00:42 06:30 WBC RBC Hgb Hct MCH RDW Plt Count Lymph % (Auto) [place] % (Auto) [place] # Baso # Seg Neutrophils % Seg Neuts % (Manual) Lymphocytes % (Manual) Monocytes % (Manual) Seg Neutrophils # Seg Neutrophils # Man Lymphocytes # (Manual) Monocytes # (Manual) Eosinophils # (Manual) Basophils # (Manual) PT INR APTT ABG pH ABG pO2 ABG HCO3 ABG O2 Saturation ABG Base Excess ABG Hemoglobin Oxyhemoglobin Sodium Potassium Chloride Carbon Dioxide BUN Creatinine Glucose POC Glucose 124 H 142 H 117 H Lactic Acid Calcium Ionized Calcium Phosphorus Magnesium Total Bilirubin AST ALT Alkaline Phosphatase Ammonia Total Creatine Kinase CK-MB (CK-2) CK-MB (CK-2) Rel Index Total Protein Albumin Urine WBC (Auto) Vancomycin Trough Salicylates Acetaminophen Plasma/Serum Alcohol Crossmatch 02/22/20 02/22/20 02/23/20 12:20 17:55 12:46 WBC RBC Hgb Hct MCH RDW Plt Count Lymph % (Auto) [place] % (Auto) [place] # Baso # Seg Neutrophils % Seg Neuts % (Manual) Lymphocytes % (Manual) Monocytes % (Manual) Seg Neutrophils # Seg Neutrophils # Man Lymphocytes # (Manual) Monocytes # (Manual) Eosinophils # (Manual) Basophils # (Manual) PT INR APTT ABG pH ABG pO2 ABG HCO3 ABG O2 Saturation ABG Base Excess ABG Hemoglobin Oxyhemoglobin Sodium Potassium Chloride Carbon Dioxide BUN Creatinine Glucose POC Glucose 121 H 157 H 112 H Lactic Acid Calcium Ionized Calcium Phosphorus Magnesium Total Bilirubin AST ALT Alkaline Phosphatase Ammonia Total Creatine Kinase CK-MB (CK-2) CK-MB (CK-2) Rel Index Total Protein Albumin Urine WBC (Auto) Vancomycin Trough Salicylates Acetaminophen Plasma/Serum Alcohol Crossmatch 02/23/20 02/24/20 02/24/20 16:47 00:38 07:00 WBC RBC Hgb Hct MCH RDW Plt Count Lymph % (Auto) [place] % (Auto) [place] # Baso # Seg Neutrophils % Seg Neuts % (Manual) Lymphocytes % (Manual) Monocytes % (Manual) Seg Neutrophils # Seg Neutrophils # Man Lymphocytes # (Manual) Monocytes # (Manual) Eosinophils # (Manual) Basophils # (Manual) PT INR APTT ABG pH ABG pO2 ABG HCO3 ABG O2 Saturation ABG Base Excess ABG Hemoglobin Oxyhemoglobin Sodium Potassium Chloride Carbon Dioxide BUN Creatinine Glucose POC Glucose 142 H 138 H 118 H Lactic Acid Calcium Ionized Calcium Phosphorus Magnesium Total Bilirubin AST ALT Alkaline Phosphatase Ammonia Total Creatine Kinase CK-MB (CK-2) CK-MB (CK-2) Rel Index Total Protein Albumin Urine WBC (Auto) Vancomycin Trough Salicylates Acetaminophen Plasma/Serum Alcohol Crossmatch 02/24/20 02/24/20 02/25/20 11:41 18:33 18:24 WBC RBC Hgb Hct MCH RDW Plt Count Lymph % (Auto) [place] % (Auto) [place] # Baso # Seg Neutrophils % Seg Neuts % (Manual) Lymphocytes % (Manual) Monocytes % (Manual) Seg Neutrophils # Seg Neutrophils # Man Lymphocytes # (Manual) Monocytes # (Manual) Eosinophils # (Manual) Basophils # (Manual) PT INR APTT ABG pH ABG pO2 ABG HCO3 ABG O2 Saturation ABG Base Excess ABG Hemoglobin Oxyhemoglobin Sodium Potassium Chloride Carbon Dioxide BUN Creatinine Glucose POC Glucose 152 H 126 H 120 H Lactic Acid Calcium Ionized Calcium Phosphorus Magnesium Total Bilirubin AST ALT Alkaline Phosphatase Ammonia Total Creatine Kinase CK-MB (CK-2) CK-MB (CK-2) Rel Index Total Protein Albumin Urine WBC (Auto) Vancomycin Trough Salicylates Acetaminophen Plasma/Serum Alcohol Crossmatch 02/25/20 02/26/20 02/26/20 23:40 05:46 11:32 WBC RBC Hgb Hct MCH RDW Plt Count Lymph % (Auto) [place] % (Auto) [place] # Baso # Seg Neutrophils % Seg Neuts % (Manual) Lymphocytes % (Manual) Monocytes % (Manual) Seg Neutrophils # Seg Neutrophils # Man Lymphocytes # (Manual) Monocytes # (Manual) Eosinophils # (Manual) Basophils # (Manual) PT INR APTT ABG pH ABG pO2 ABG HCO3 ABG O2 Saturation ABG Base Excess ABG Hemoglobin Oxyhemoglobin Sodium Potassium Chloride Carbon Dioxide BUN Creatinine Glucose POC Glucose 114 H 113 H 106 H Lactic Acid Calcium Ionized Calcium Phosphorus Magnesium Total Bilirubin AST ALT Alkaline Phosphatase Ammonia Total Creatine Kinase CK-MB (CK-2) CK-MB (CK-2) Rel Index Total Protein Albumin Urine WBC (Auto) Vancomycin Trough Salicylates Acetaminophen Plasma/Serum Alcohol Crossmatch 02/26/20 02/27/20 02/27/20 16:14 11:53 17:54 WBC RBC Hgb Hct MCH RDW Plt Count Lymph % (Auto) [place] % (Auto) [place] # Baso # Seg Neutrophils % Seg Neuts % (Manual) Lymphocytes % (Manual) Monocytes % (Manual) Seg Neutrophils # Seg Neutrophils # Man Lymphocytes # (Manual) Monocytes # (Manual) Eosinophils # (Manual) Basophils # (Manual) PT INR APTT ABG pH ABG pO2 ABG HCO3 ABG O2 Saturation ABG Base Excess ABG Hemoglobin Oxyhemoglobin Sodium Potassium Chloride Carbon Dioxide BUN Creatinine Glucose POC Glucose 123 H 134 H 119 H Lactic Acid Calcium Ionized Calcium Phosphorus Magnesium Total Bilirubin AST ALT Alkaline Phosphatase Ammonia Total Creatine Kinase CK-MB (CK-2) CK-MB (CK-2) Rel Index Total Protein Albumin Urine WBC (Auto) Vancomycin Trough Salicylates Acetaminophen Plasma/Serum Alcohol Crossmatch 02/27/20 02/28/20 02/28/20 23:51 03:40 03:40 WBC RBC 3.58 L Hgb Hct MCH RDW Plt Count 575 H Lymph % (Auto) [place] % (Auto) 9.4 H [place] # 1.0 H Baso # Seg Neutrophils % Seg Neuts % (Manual) Lymphocytes % (Manual) Monocytes % (Manual) Seg Neutrophils # Seg Neutrophils # Man Lymphocytes # (Manual) Monocytes # (Manual) Eosinophils # (Manual) Basophils # (Manual) PT INR APTT ABG pH ABG pO2 ABG HCO3 ABG O2 Saturation ABG Base Excess ABG Hemoglobin Oxyhemoglobin Sodium Potassium Chloride Carbon Dioxide BUN 23 H Creatinine 0.5 L Glucose 114 H POC Glucose 138 H Lactic Acid Calcium Ionized Calcium Phosphorus Magnesium Total Bilirubin AST ALT Alkaline Phosphatase Ammonia Total Creatine Kinase CK-MB (CK-2) CK-MB (CK-2) Rel Index Total Protein Albumin Urine WBC (Auto) Vancomycin Trough Salicylates Acetaminophen Plasma/Serum Alcohol Crossmatch 02/28/20 02/28/20 02/29/20 12:37 18:38 05:50 WBC RBC Hgb Hct MCH RDW Plt Count Lymph % (Auto) [place] % (Auto) [place] # Baso # Seg Neutrophils % Seg Neuts % (Manual) Lymphocytes % (Manual) Monocytes % (Manual) Seg Neutrophils # Seg Neutrophils # Man Lymphocytes # (Manual) Monocytes # (Manual) Eosinophils # (Manual) Basophils # (Manual) PT INR APTT ABG pH ABG pO2 ABG HCO3 ABG O2 Saturation ABG Base Excess ABG Hemoglobin Oxyhemoglobin Sodium Potassium Chloride Carbon Dioxide BUN Creatinine Glucose POC Glucose 115 H 120 H 114 H Lactic Acid Calcium Ionized Calcium Phosphorus Magnesium Total Bilirubin AST ALT Alkaline Phosphatase Ammonia Total Creatine Kinase CK-MB (CK-2) CK-MB (CK-2) Rel Index Total Protein Albumin Urine WBC (Auto) Vancomycin Trough Salicylates Acetaminophen Plasma/Serum Alcohol Crossmatch 02/29/20 02/29/20 03/01/20 18:53 23:10 06:53 WBC RBC Hgb Hct MCH RDW Plt Count Lymph % (Auto) [place] % (Auto) [place] # Baso # Seg Neutrophils % Seg Neuts % (Manual) Lymphocytes % (Manual) Monocytes % (Manual) Seg Neutrophils # Seg Neutrophils # Man Lymphocytes # (Manual) Monocytes # (Manual) Eosinophils # (Manual) Basophils # (Manual) PT INR APTT ABG pH ABG pO2 ABG HCO3 ABG O2 Saturation ABG Base Excess ABG Hemoglobin Oxyhemoglobin Sodium Potassium Chloride Carbon Dioxide BUN Creatinine Glucose POC Glucose 112 H 147 H 131 H Lactic Acid Calcium Ionized Calcium Phosphorus Magnesium Total Bilirubin AST ALT Alkaline Phosphatase Ammonia Total Creatine Kinase CK-MB (CK-2) CK-MB (CK-2) Rel Index Total Protein Albumin Urine WBC (Auto) Vancomycin Trough Salicylates Acetaminophen Plasma/Serum Alcohol Crossmatch 03/01/20 03/01/20 03/02/20 17:31 18:35 00:10 WBC RBC Hgb Hct MCH RDW Plt Count Lymph % (Auto) [place] % (Auto) [place] # Baso # Seg Neutrophils % Seg Neuts % (Manual) Lymphocytes % (Manual) Monocytes % (Manual) Seg Neutrophils # Seg Neutrophils # Man Lymphocytes # (Manual) Monocytes # (Manual) Eosinophils # (Manual) Basophils # (Manual) PT INR APTT ABG pH ABG pO2 ABG HCO3 ABG O2 Saturation ABG Base Excess ABG Hemoglobin Oxyhemoglobin Sodium Potassium Chloride Carbon Dioxide BUN Creatinine Glucose POC Glucose 61 L 129 H 117 H Lactic Acid Calcium Ionized Calcium Phosphorus Magnesium Total Bilirubin AST ALT Alkaline Phosphatase Ammonia Total Creatine Kinase CK-MB (CK-2) CK-MB (CK-2) Rel Index Total Protein Albumin Urine WBC (Auto) Vancomycin Trough Salicylates Acetaminophen Plasma/Serum Alcohol Crossmatch 03/02/20 03/02/20 03/02/20 06:56 12:02 18:42 WBC RBC Hgb Hct MCH RDW Plt Count Lymph % (Auto) [place] % (Auto) [place] # Baso # Seg Neutrophils % Seg Neuts % (Manual) Lymphocytes % (Manual) Monocytes % (Manual) Seg Neutrophils # Seg Neutrophils # Man Lymphocytes # (Manual) Monocytes # (Manual) Eosinophils # (Manual) Basophils # (Manual) PT INR APTT ABG pH ABG pO2 ABG HCO3 ABG O2 Saturation ABG Base Excess ABG Hemoglobin Oxyhemoglobin Sodium Potassium Chloride Carbon Dioxide BUN Creatinine Glucose POC Glucose 125 H 111 H 126 H Lactic Acid Calcium Ionized Calcium Phosphorus Magnesium Total Bilirubin AST ALT Alkaline Phosphatase Ammonia Total Creatine Kinase CK-MB (CK-2) CK-MB (CK-2) Rel Index Total Protein Albumin Urine WBC (Auto) Vancomycin Trough Salicylates Acetaminophen Plasma/Serum Alcohol Crossmatch 03/03/20 03/03/20 03/03/20 00:18 06:11 11:50 WBC RBC Hgb Hct MCH RDW Plt Count Lymph % (Auto) [place] % (Auto) [place] # Baso # Seg Neutrophils % Seg Neuts % (Manual) Lymphocytes % (Manual) Monocytes % (Manual) Seg Neutrophils # Seg Neutrophils # Man Lymphocytes # (Manual) Monocytes # (Manual) Eosinophils # (Manual) Basophils # (Manual) PT INR APTT ABG pH ABG pO2 ABG HCO3 ABG O2 Saturation ABG Base Excess ABG Hemoglobin Oxyhemoglobin Sodium Potassium Chloride Carbon Dioxide BUN Creatinine Glucose POC Glucose 139 H 155 H 118 H Lactic Acid Calcium Ionized Calcium Phosphorus Magnesium Total Bilirubin AST ALT Alkaline Phosphatase Ammonia Total Creatine Kinase CK-MB (CK-2) CK-MB (CK-2) Rel Index Total Protein Albumin Urine WBC (Auto) Vancomycin Trough Salicylates Acetaminophen Plasma/Serum Alcohol Crossmatch 03/03/20 03/03/20 03/04/20 18:09 23:46 05:37 WBC RBC Hgb Hct MCH RDW Plt Count Lymph % (Auto) [place] % (Auto) [place] # Baso # Seg Neutrophils % Seg Neuts % (Manual) Lymphocytes % (Manual) Monocytes % (Manual) Seg Neutrophils # Seg Neutrophils # Man Lymphocytes # (Manual) Monocytes # (Manual) Eosinophils # (Manual) Basophils # (Manual) PT INR APTT ABG pH ABG pO2 ABG HCO3 ABG O2 Saturation ABG Base Excess ABG Hemoglobin Oxyhemoglobin Sodium Potassium Chloride Carbon Dioxide BUN Creatinine Glucose POC Glucose 109 H 132 H 111 H Lactic Acid Calcium Ionized Calcium Phosphorus Magnesium Total Bilirubin AST ALT Alkaline Phosphatase Ammonia Total Creatine Kinase CK-MB (CK-2) CK-MB (CK-2) Rel Index Total Protein Albumin Urine WBC (Auto) Vancomycin Trough Salicylates Acetaminophen Plasma/Serum Alcohol Crossmatch 03/04/20 03/04/20 03/05/20 11:38 17:54 00:14 WBC RBC Hgb Hct MCH RDW Plt Count Lymph % (Auto) [place] % (Auto) [place] # Baso # Seg Neutrophils % Seg Neuts % (Manual) Lymphocytes % (Manual) Monocytes % (Manual) Seg Neutrophils # Seg Neutrophils # Man Lymphocytes # (Manual) Monocytes # (Manual) Eosinophils # (Manual) Basophils # (Manual) PT INR APTT ABG pH ABG pO2 ABG HCO3 ABG O2 Saturation ABG Base Excess ABG Hemoglobin Oxyhemoglobin Sodium Potassium Chloride Carbon Dioxide BUN Creatinine Glucose POC Glucose 138 H 118 H 134 H Lactic Acid Calcium Ionized Calcium Phosphorus Magnesium Total Bilirubin AST ALT Alkaline Phosphatase Ammonia Total Creatine Kinase CK-MB (CK-2) CK-MB (CK-2) Rel Index Total Protein Albumin Urine WBC (Auto) Vancomycin Trough Salicylates Acetaminophen Plasma/Serum Alcohol Crossmatch 03/06/20 03/06/20 03/06/20 03:37 03:37 06:29 WBC RBC Hgb Hct MCH RDW Plt Count 550 H Lymph % (Auto) [place] % (Auto) 9.1 H [place] # Baso # Seg Neutrophils % Seg Neuts % (Manual) Lymphocytes % (Manual) Monocytes % (Manual) Seg Neutrophils # Seg Neutrophils # Man Lymphocytes # (Manual) Monocytes # (Manual) Eosinophils # (Manual) Basophils # (Manual) PT INR APTT ABG pH ABG pO2 ABG HCO3 ABG O2 Saturation ABG Base Excess ABG Hemoglobin Oxyhemoglobin Sodium Potassium Chloride Carbon Dioxide BUN 26 H Creatinine 0.5 L Glucose POC Glucose 128 H Lactic Acid Calcium 10.4 H Ionized Calcium Phosphorus Magnesium Total Bilirubin AST ALT Alkaline Phosphatase Ammonia Total Creatine Kinase CK-MB (CK-2) CK-MB (CK-2) Rel Index Total Protein Albumin Urine WBC (Auto) Vancomycin Trough Salicylates Acetaminophen Plasma/Serum Alcohol Crossmatch 03/06/20 03/07/20 03/07/20 17:47 06:37 12:37 WBC RBC Hgb Hct MCH RDW Plt Count Lymph % (Auto) [place] % (Auto) [place] # Baso # Seg Neutrophils % Seg Neuts % (Manual) Lymphocytes % (Manual) Monocytes % (Manual) Seg Neutrophils # Seg Neutrophils # Man Lymphocytes # (Manual) Monocytes # (Manual) Eosinophils # (Manual) Basophils # (Manual) PT INR APTT ABG pH ABG pO2 ABG HCO3 ABG O2 Saturation ABG Base Excess ABG Hemoglobin Oxyhemoglobin Sodium Potassium Chloride Carbon Dioxide BUN Creatinine Glucose POC Glucose 120 H 113 H 118 H Lactic Acid Calcium Ionized Calcium Phosphorus Magnesium Total Bilirubin AST ALT Alkaline Phosphatase Ammonia Total Creatine Kinase CK-MB (CK-2) CK-MB (CK-2) Rel Index Total Protein Albumin Urine WBC (Auto) Vancomycin Trough Salicylates Acetaminophen Plasma/Serum Alcohol Crossmatch 03/07/20 03/08/20 03/08/20 16:41 00:55 06:25 WBC RBC Hgb Hct MCH RDW Plt Count Lymph % (Auto) [place] % (Auto) [place] # Baso # Seg Neutrophils % Seg Neuts % (Manual) Lymphocytes % (Manual) Monocytes % (Manual) Seg Neutrophils # Seg Neutrophils # Man Lymphocytes # (Manual) Monocytes # (Manual) Eosinophils # (Manual) Basophils # (Manual) PT INR APTT ABG pH ABG pO2 ABG HCO3 ABG O2 Saturation ABG Base Excess ABG Hemoglobin Oxyhemoglobin Sodium Potassium Chloride Carbon Dioxide BUN Creatinine Glucose POC Glucose 108 H 139 H 127 H Lactic Acid Calcium Ionized Calcium Phosphorus Magnesium Total Bilirubin AST ALT Alkaline Phosphatase Ammonia Total Creatine Kinase CK-MB (CK-2) CK-MB (CK-2) Rel Index Total Protein Albumin Urine WBC (Auto) Vancomycin Trough Salicylates Acetaminophen Plasma/Serum Alcohol Crossmatch 03/08/20 03/08/20 03/08/20 12:49 13:25 17:13 WBC RBC Hgb Hct MCH RDW Plt Count Lymph % (Auto) [place] % (Auto) [place] # Baso # Seg Neutrophils % Seg Neuts % (Manual) Lymphocytes % (Manual) Monocytes % (Manual) Seg Neutrophils # Seg Neutrophils # Man Lymphocytes # (Manual) Monocytes # (Manual) Eosinophils # (Manual) Basophils # (Manual) PT INR APTT ABG pH ABG pO2 71.1 L ABG HCO3 26.2 H ABG O2 Saturation ABG Base Excess ABG Hemoglobin 8.2 L Oxyhemoglobin 94.8 L Sodium Potassium Chloride Carbon Dioxide BUN Creatinine Glucose POC Glucose 127 H 147 H Lactic Acid Calcium Ionized Calcium Phosphorus Magnesium Total Bilirubin AST ALT Alkaline Phosphatase Ammonia Total Creatine Kinase CK-MB (CK-2) CK-MB (CK-2) Rel Index Total Protein Albumin Urine WBC (Auto) Vancomycin Trough Salicylates Acetaminophen Plasma/Serum Alcohol Crossmatch 03/09/20 03/09/20 03/09/20 06:28 08:36 23:58 WBC RBC Hgb Hct MCH RDW Plt Count Lymph % (Auto) [place] % (Auto) [place] # Baso # Seg Neutrophils % Seg Neuts % (Manual) Lymphocytes % (Manual) Monocytes % (Manual) Seg Neutrophils # Seg Neutrophils # Man Lymphocytes # (Manual) Monocytes # (Manual) Eosinophils # (Manual) Basophils # (Manual) PT INR APTT ABG pH ABG pO2 ABG HCO3 ABG O2 Saturation ABG Base Excess ABG Hemoglobin Oxyhemoglobin Sodium Potassium Chloride Carbon Dioxide BUN Creatinine Glucose POC Glucose 139 H 167 H 122 H Lactic Acid Calcium Ionized Calcium Phosphorus Magnesium Total Bilirubin AST ALT Alkaline Phosphatase Ammonia Total Creatine Kinase CK-MB (CK-2) CK-MB (CK-2) Rel Index Total Protein Albumin Urine WBC (Auto) Vancomycin Trough Salicylates Acetaminophen Plasma/Serum Alcohol Crossmatch 03/10/20 03/10/20 03/11/20 06:32 23:27 06:23 WBC RBC Hgb Hct MCH RDW Plt Count Lymph % (Auto) [place] % (Auto) [place] # Baso # Seg Neutrophils % Seg Neuts % (Manual) Lymphocytes % (Manual) Monocytes % (Manual) Seg Neutrophils # Seg Neutrophils # Man Lymphocytes # (Manual) Monocytes # (Manual) Eosinophils # (Manual) Basophils # (Manual) PT INR APTT ABG pH ABG pO2 ABG HCO3 ABG O2 Saturation ABG Base Excess ABG Hemoglobin Oxyhemoglobin Sodium Potassium Chloride Carbon Dioxide BUN Creatinine Glucose POC Glucose 165 H 115 H 139 H Lactic Acid Calcium Ionized Calcium Phosphorus Magnesium Total Bilirubin AST ALT Alkaline Phosphatase Ammonia Total Creatine Kinase CK-MB (CK-2) CK-MB (CK-2) Rel Index Total Protein Albumin Urine WBC (Auto) Vancomycin Trough Salicylates Acetaminophen Plasma/Serum Alcohol Crossmatch 03/11/20 03/11/20 03/12/20 12:29 18:02 04:53 WBC RBC Hgb Hct MCH RDW Plt Count 625 H Lymph % (Auto) [place] % (Auto) [place] # Baso # Seg Neutrophils % Seg Neuts % (Manual) Lymphocytes % (Manual) Monocytes % (Manual) Seg Neutrophils # Seg Neutrophils # Man Lymphocytes # (Manual) Monocytes # (Manual) Eosinophils # (Manual) Basophils # (Manual) PT INR APTT ABG pH ABG pO2 ABG HCO3 ABG O2 Saturation ABG Base Excess ABG Hemoglobin Oxyhemoglobin Sodium Potassium Chloride Carbon Dioxide BUN Creatinine Glucose POC Glucose 164 H 113 H Lactic Acid Calcium Ionized Calcium Phosphorus Magnesium Total Bilirubin AST ALT Alkaline Phosphatase Ammonia Total Creatine Kinase CK-MB (CK-2) CK-MB (CK-2) Rel Index Total Protein Albumin Urine WBC (Auto) Vancomycin Trough Salicylates Acetaminophen Plasma/Serum Alcohol Crossmatch 03/12/20 03/12/20 03/12/20 04:53 06:26 12:38 WBC RBC Hgb Hct MCH RDW Plt Count Lymph % (Auto) [place] % (Auto) [place] # Baso # Seg Neutrophils % Seg Neuts % (Manual) Lymphocytes % (Manual) Monocytes % (Manual) Seg Neutrophils # Seg Neutrophils # Man Lymphocytes # (Manual) Monocytes # (Manual) Eosinophils # (Manual) Basophils # (Manual) PT INR APTT ABG pH ABG pO2 ABG HCO3 ABG O2 Saturation ABG Base Excess ABG Hemoglobin Oxyhemoglobin Sodium Potassium 5.3 H Chloride Carbon Dioxide BUN 34 H Creatinine Glucose 159 H POC Glucose 149 H 130 H Lactic Acid Calcium 10.7 H Ionized Calcium Phosphorus Magnesium Total Bilirubin AST ALT Alkaline Phosphatase Ammonia Total Creatine Kinase CK-MB (CK-2) CK-MB (CK-2) Rel Index Total Protein Albumin Urine WBC (Auto) Vancomycin Trough Salicylates Acetaminophen Plasma/Serum Alcohol Crossmatch 03/13/20 03/13/20 03/13/20 03:50 06:12 18:11 WBC RBC Hgb Hct MCH RDW Plt Count Lymph % (Auto) [place] % (Auto) [place] # Baso # Seg Neutrophils % Seg Neuts % (Manual) Lymphocytes % (Manual) Monocytes % (Manual) Seg Neutrophils # Seg Neutrophils # Man Lymphocytes # (Manual) Monocytes # (Manual) Eosinophils # (Manual) Basophils # (Manual) PT INR APTT ABG pH ABG pO2 ABG HCO3 ABG O2 Saturation ABG Base Excess ABG Hemoglobin Oxyhemoglobin Sodium Potassium Chloride Carbon Dioxide 20 L BUN 30 H Creatinine 0.6 L Glucose 153 H POC Glucose 124 H 111 H Lactic Acid Calcium Ionized Calcium Phosphorus Magnesium Total Bilirubin AST ALT Alkaline Phosphatase Ammonia Total Creatine Kinase CK-MB (CK-2) CK-MB (CK-2) Rel Index Total Protein Albumin Urine WBC (Auto) Vancomycin Trough Salicylates Acetaminophen Plasma/Serum Alcohol Crossmatch 03/14/20 03/14/20 03/15/20 12:01 15:40 00:02 WBC RBC Hgb Hct MCH RDW Plt Count Lymph % (Auto) [place] % (Auto) [place] # Baso # Seg Neutrophils % Seg Neuts % (Manual) Lymphocytes % (Manual) Monocytes % (Manual) Seg Neutrophils # Seg Neutrophils # Man Lymphocytes # (Manual) Monocytes # (Manual) Eosinophils # (Manual) Basophils # (Manual) PT INR APTT ABG pH ABG pO2 ABG HCO3 ABG O2 Saturation ABG Base Excess ABG Hemoglobin Oxyhemoglobin Sodium Potassium Chloride Carbon Dioxide BUN Creatinine Glucose POC Glucose 116 H 125 H 143 H Lactic Acid Calcium Ionized Calcium Phosphorus Magnesium Total Bilirubin AST ALT Alkaline Phosphatase Ammonia Total Creatine Kinase CK-MB (CK-2) CK-MB (CK-2) Rel Index Total Protein Albumin Urine WBC (Auto) Vancomycin Trough Salicylates Acetaminophen Plasma/Serum Alcohol Crossmatch 03/15/20 03/15/20 03/16/20 12:03 18:14 12:14 WBC RBC Hgb Hct MCH RDW Plt Count Lymph % (Auto) [place] % (Auto) [place] # Baso # Seg Neutrophils % Seg Neuts % (Manual) Lymphocytes % (Manual) Monocytes % (Manual) Seg Neutrophils # Seg Neutrophils # Man Lymphocytes # (Manual) Monocytes # (Manual) Eosinophils # (Manual) Basophils # (Manual) PT INR APTT ABG pH ABG pO2 ABG HCO3 ABG O2 Saturation ABG Base Excess ABG Hemoglobin Oxyhemoglobin Sodium Potassium Chloride Carbon Dioxide BUN Creatinine Glucose POC Glucose 106 H 107 H 107 H Lactic Acid Calcium Ionized Calcium Phosphorus Magnesium Total Bilirubin AST ALT Alkaline Phosphatase Ammonia Total Creatine Kinase CK-MB (CK-2) CK-MB (CK-2) Rel Index Total Protein Albumin Urine WBC (Auto) Vancomycin Trough Salicylates Acetaminophen Plasma/Serum Alcohol Crossmatch 03/16/20 03/17/20 03/17/20 18:30 05:44 12:09 WBC RBC Hgb Hct MCH RDW Plt Count Lymph % (Auto) [place] % (Auto) [place] # Baso # Seg Neutrophils % Seg Neuts % (Manual) Lymphocytes % (Manual) Monocytes % (Manual) Seg Neutrophils # Seg Neutrophils # Man Lymphocytes # (Manual) Monocytes # (Manual) Eosinophils # (Manual) Basophils # (Manual) PT INR APTT ABG pH ABG pO2 ABG HCO3 ABG O2 Saturation ABG Base Excess ABG Hemoglobin Oxyhemoglobin Sodium Potassium Chloride Carbon Dioxide BUN Creatinine Glucose POC Glucose 128 H 114 H 120 H Lactic Acid Calcium Ionized Calcium Phosphorus Magnesium Total Bilirubin AST ALT Alkaline Phosphatase Ammonia Total Creatine Kinase CK-MB (CK-2) CK-MB (CK-2) Rel Index Total Protein Albumin Urine WBC (Auto) Vancomycin Trough Salicylates Acetaminophen Plasma/Serum Alcohol Crossmatch 03/17/20 03/17/20 03/18/20 16:51 23:36 07:07 WBC RBC Hgb Hct MCH RDW Plt Count Lymph % (Auto) [place] % (Auto) [place] # Baso # Seg Neutrophils % Seg Neuts % (Manual) Lymphocytes % (Manual) Monocytes % (Manual) Seg Neutrophils # Seg Neutrophils # Man Lymphocytes # (Manual) Monocytes # (Manual) Eosinophils # (Manual) Basophils # (Manual) PT INR APTT ABG pH ABG pO2 ABG HCO3 ABG O2 Saturation ABG Base Excess ABG Hemoglobin Oxyhemoglobin Sodium Potassium Chloride Carbon Dioxide BUN Creatinine Glucose POC Glucose 108 H 145 H 116 H Lactic Acid Calcium Ionized Calcium Phosphorus Magnesium Total Bilirubin AST ALT Alkaline Phosphatase Ammonia Total Creatine Kinase CK-MB (CK-2) CK-MB (CK-2) Rel Index Total Protein Albumin Urine WBC (Auto) Vancomycin Trough Salicylates Acetaminophen Plasma/Serum Alcohol Crossmatch 03/18/20 03/19/20 03/19/20 18:11 06:09 11:49 WBC RBC Hgb Hct MCH RDW Plt Count Lymph % (Auto) [place] % (Auto) [place] # Baso # Seg Neutrophils % Seg Neuts % (Manual) Lymphocytes % (Manual) Monocytes % (Manual) Seg Neutrophils # Seg Neutrophils # Man Lymphocytes # (Manual) Monocytes # (Manual) Eosinophils # (Manual) Basophils # (Manual) PT INR APTT ABG pH ABG pO2 ABG HCO3 ABG O2 Saturation ABG Base Excess ABG Hemoglobin Oxyhemoglobin Sodium Potassium Chloride Carbon Dioxide BUN Creatinine Glucose POC Glucose 106 H 160 H 145 H Lactic Acid Calcium Ionized Calcium Phosphorus Magnesium Total Bilirubin AST ALT Alkaline Phosphatase Ammonia Total Creatine Kinase CK-MB (CK-2) CK-MB (CK-2) Rel Index Total Protein Albumin Urine WBC (Auto) Vancomycin Trough Salicylates Acetaminophen Plasma/Serum Alcohol Crossmatch 03/20/20 03/20/20 03/20/20 01:01 06:14 12:52 WBC RBC Hgb Hct MCH RDW Plt Count Lymph % (Auto) [place] % (Auto) [place] # Baso # Seg Neutrophils % Seg Neuts % (Manual) Lymphocytes % (Manual) Monocytes % (Manual) Seg Neutrophils # Seg Neutrophils # Man Lymphocytes # (Manual) Monocytes # (Manual) Eosinophils # (Manual) Basophils # (Manual) PT INR APTT ABG pH ABG pO2 ABG HCO3 ABG O2 Saturation ABG Base Excess ABG Hemoglobin Oxyhemoglobin Sodium Potassium Chloride Carbon Dioxide BUN Creatinine Glucose POC Glucose 109 H 122 H 106 H Lactic Acid Calcium Ionized Calcium Phosphorus Magnesium Total Bilirubin AST ALT Alkaline Phosphatase Ammonia Total Creatine Kinase CK-MB (CK-2) CK-MB (CK-2) Rel Index Total Protein Albumin Urine WBC (Auto) Vancomycin Trough Salicylates Acetaminophen Plasma/Serum Alcohol Crossmatch 03/20/20 03/21/20 03/21/20 18:56 00:18 05:21 WBC RBC Hgb Hct MCH RDW Plt Count Lymph % (Auto) [place] % (Auto) [place] # Baso # Seg Neutrophils % Seg Neuts % (Manual) Lymphocytes % (Manual) Monocytes % (Manual) Seg Neutrophils # Seg Neutrophils # Man Lymphocytes # (Manual) Monocytes # (Manual) Eosinophils # (Manual) Basophils # (Manual) PT INR APTT ABG pH ABG pO2 ABG HCO3 ABG O2 Saturation ABG Base Excess ABG Hemoglobin Oxyhemoglobin Sodium Potassium Chloride Carbon Dioxide BUN Creatinine Glucose POC Glucose 110 H 140 H 112 H Lactic Acid Calcium Ionized Calcium Phosphorus Magnesium Total Bilirubin AST ALT Alkaline Phosphatase Ammonia Total Creatine Kinase CK-MB (CK-2) CK-MB (CK-2) Rel Index Total Protein Albumin Urine WBC (Auto) Vancomycin Trough Salicylates Acetaminophen Plasma/Serum Alcohol Crossmatch Allied health notes reviewed: RT
[2020-03-21] MEDS: GLYCOPYRROLATE 1 MG TAB PO SCH ×3 (11:03→21:44)
--- NOTE | 2020-03-21 11:35 | Progress Note ---
Assessment and Plan Assessment and plan: 54-year-old female with a past medical history of Hypertension, Depression, Tobacco use Disorder, Alcohol use Disorder as confirmed by Daughter and pt's mother presents to the hospital status post cardiac arrest at home. EMS found pt in [facility]. They were unable to intubate patient with a ET tube because she was clenching down therefore Joe airway placed. Per the ED physician who evaluated pt, Patient presented with a pulse, intermittent respirations, and bagging support via Joe airway with O2 sat of 100%. Accu-Chek of 71 obtained by EMS. She was intubated in the ER and called for admission. Following admission patient was diagnosed with anoxic brain injury, sepsis with MRSA bacteremia and MSSA pneumonia, alcoholic liver disease. Family member initially wished for full code then changed to DNR, patient treated with IV antibiotics for sepsis, status post trach and PEG on 12/13/19. Weaned off from the vent and put on T- piece. Patient is uninsured, waiting for placement, guarded prognosis. 03/07: Returning to service no acute changes are noted. Continue current management while awaiting placement. Intermittent labs. Base of neck also around tracheostomy tube preventing downgrading. Continue appropriate wound care. 03/08: Plan of care unchanged continues on aerosol trach collar 28% of oxygen. Continue wound care management placement still pending status decision. 03/09: Continue current treatment plan. Continue aspiration precaution 03/10: Continue current management, Restraints as patient still pulling, awaiting placement 03/11: Continue supportive care, intermittent suctioning and pulmonary toilet. awaiting placement. 03/12: Continue supportive care, Give a bolus of fluids due to Hypercalcemia, Monitor Hyperkalemia with labs in am, No arrhythmia. Patient vomiting, concern for aspiration, Chest xray ordered and no active disease noted. Keep HOB >45% 03/13: No evidence of aspiration on xray. Continue supportive care. 03/14: Continue supportive care. Capping trials to start. Discussed with patients nursing and case management to continue daily PT by the Rehab team. 03/15: Discussed again with staff to start capping trial. 03/16: Do not see any indication the capping trial has started will discuss with respiratory therapist. Continue restraints. Still awaiting family decision patient has had some remarkable improvement considering the fact that she was able to stay around night without restraints. We will continue daily trial of this method. Discussed plan with nursing staff 03/17: Continue current care. Currently continue restraints. Continue current management. Continue physical therapy daily. 03/18: Capping trial successful and will possibly get decannulated today. Continue placement. 03/19: Now decannulated and doing well. Begin discharge planning. 03/20: Stable, no new complaints. 03/21: No new complaints. Continue supportive / Anoxic brain injury: suspected CT head: No acute abnormality. EEG ordered showed Generalized slowing. No seizures or epileptiform activity. -Patient now opening her eyes, can speak and able to follow command -As needed haldol for agitation /Acute Respiratory failure -due to MSSA PNA -s/p intubation, s/p trach and PEG on 12/12 with mechanical ventilation, now on T-piece - CTA was done and negative for PE, - Echo quality is poor, showed diastolic dysfunction - continue weaning as tolerated -Continue appropriate and adequate tracheostomy care /Tracheostomy site ulceration -Continue appropriate wound management try to keep area dry. /Anemia, microcytic - Status post 3 units PRBC transfusion, H&H low stable /Acute metabolic encephalopathy/toxic encephalopathy due to the above - cont supportive care /Hyperammonemia - likely from liver disease related to EtOH abuse - Patient had elevated ammonia level and treated with lactulose /Metabolic Acidosis -Alcohol ketoacidosis vs hypoprofusion -Continue to monitor /ELevated LFTs, stable now - due to ischemic hepatitis. /Leucocytosis with sepsis - Source MRSA bacteremia and MSSA pneumonia. UA showed pyuria. RUQ US showed no ascites. - Repeat TTE negative for vegetation. Completed 7 days of Ceftriaxone on 11/29/2019. -Treated with Abx vancomycin 1 gm IV q 12 hour total 2 week till 12/30/2019 /Severe protein calorie malnutrition Dietitian consult to assist in management. /MSSA pneumonia: Status post vancomycin till 12/30/2019 /Alcohol use Disorder - given ongoing Alcohol use almost daily, s/p IV Thiamine - monitor /Severe hypokalemia -Repleted /Seizure disorder: treat with Keppra /H. Influenzae, tracheobronchitis, treated with abx /Moderate to severe fecal impaction - will add stool softner DNR CODE STATUS Disposition: prognosis guarded. Family okay for DNR, PT recommended subacute rehab, discharge pending on placement. Negative for COVID 19 History Interval history: Patient seen and examined, resting comfortable. No new complaints. still with confusion Hospitalist Physical - Physical exam Narrative exam: General appearance: Present: Appears older than stated age, Agitated - EENT Eyes: no scleral icterus, no conjunctival injection, pupil not reactive ENT: clear oral mucosa, dentition normal, no oropharyngeal erythema Ears: bilateral: normal - Neck Neck: trach on place with mild ulceration at the base. - Respiratory Respiratory effort: other dressing over the stoma Respiratory: bilateral: rales - Cardiovascular Rhythm: regular Heart Sounds: Present: S1 & S2. Absent: gallop, rub Extremities: pulses intact, No edema, normal color - Gastrointestinal General gastrointestinal: Present: soft, non-tender, non-distended, normal bowel sounds - Integumentary Integumentary: clear, warm, dry - Musculoskeletal Musculoskeletal: No joint swelling or tenderness - Neurologic Neurologic: other (2+ reflexes throughout). respond to commend and nods head. generalized weakness, verbal - Psychiatric Psychiatric: co-operative - Constitutional Vitals: Temp Pulse Resp BP Pulse Ox 98.0 F 106 H 20 128/86 100 03/21/20 08:00 03/21/20 10:33 03/21/20 08:00 03/21/20 10:33 03/20/20 22:00 General appearance: Present: mild distress, cachectic, disheveled, other (Noncommunicative) HEART Score - HEART Score Troponin: Troponin T < 0.010 ng/mL (0.00-0.029) 11/22/19 23:27 Results - Labs CBC & Chem 7: 03/12/20 04:53 03/13/20 03:50 Labs: Laboratory Last Values WBC 9.1 K/mm3 (4.5-11.0) 03/12/20 04:53 RBC 3.90 M/mm3 (3.65-5.03) 03/12/20 04:53 Hgb 11.5 gm/dl (10.1-14.3) 03/12/20 04:53 Hct 34.2 % (30.3-42.9) 03/12/20 04:53 MCV 88 fl (79-97) 03/12/20 04:53 MCH 29 pg (28-32) 03/12/20 04:53 MCHC 34 % (30-34) 03/12/20 04:53 RDW 14.4 % (13.2-15.2) 03/12/20 04:53 Plt Count 625 K/mm3 (140-440) H 03/12/20 04:53 Lymph % (Auto) 27.8 % (13.4-35.0) 03/06/20 03:37 [place] % (Auto) 9.1 % (0.0-7.3) H 03/06/20 03:37 Eos % (Auto) 2.8 % (0.0-4.3) 03/06/20 03:37 Baso % (Auto) 0.7 % (0.0-1.8) 03/06/20 03:37 Lymph # 2.2 K/mm3 (1.2-5.4) 03/06/20 03:37 [place] # 0.7 K/mm3 (0.0-0.8) 03/06/20 03:37 Eos # 0.2 K/mm3 (0.0-0.4) 03/06/20 03:37 Baso # 0.1 K/mm3 (0.0-0.1) 03/06/20 03:37 Add Manual Diff Complete 12/25/19 03:47 Total Counted 200 12/25/19 03:47 Seg Neutrophils % 59.6 % (40.0-70.0) 03/06/20 03:37 Seg Neuts % (Manual) 97.5 % (40.0-70.0) H 12/25/19 03:47 Band Neutrophils % 0 % 12/25/19 03:47 Lymphocytes % (Manual) 1.0 % (13.4-35.0) L 12/25/19 03:47 Reactive Lymphs % (Man) 0 % 12/25/19 03:47 Monocytes % (Manual) 1.5 % (0.0-7.3) 12/25/19 03:47 Eosinophils % (Manual) 0 % (0.0-4.3) 12/25/19 03:47 Basophils % (Manual) 0 % (0.0-1.8) 12/25/19 03:47 Metamyelocytes % 0 % 12/25/19 03:47 Myelocytes % 0 % 12/25/19 03:47 Promyelocytes % 0 % 12/25/19 03:47 Blast Cells % 0 % 12/25/19 03:47 Nucleated RBC % Not Reportable 12/25/19 03:47 Seg Neutrophils # 4.8 K/mm3 (1.8-7.7) 03/06/20 03:37 Seg Neutrophils # Man 35.3 K/mm3 (1.8-7.7) H 12/25/19 03:47 Band Neutrophils # 0.0 K/mm3 12/25/19 03:47 Lymphocytes # (Manual) 0.4 K/mm3 (1.2-5.4) L 12/25/19 03:47 Abs React Lymphs (Man) 0.0 K/mm3 12/25/19 03:47 Monocytes # (Manual) 0.5 K/mm3 (0.0-0.8) 12/25/19 03:47 Eosinophils # (Manual) 0.0 K/mm3 (0.0-0.4) 12/25/19 03:47 Basophils # (Manual) 0.0 K/mm3 (0.0-0.1) 12/25/19 03:47 Metamyelocytes # 0.0 K/mm3 12/25/19 03:47 Myelocytes # 0.0 K/mm3 12/25/19 03:47 Promyelocytes # 0.0 K/mm3 12/25/19 03:47 Blast Cells # 0.0 K/mm3 12/25/19 03:47 Pathologist Review 12/13/19 07:48 WBC Morphology Not Reportable 12/25/19 03:47 Hypersegmented Neuts Not Reportable 12/25/19 03:47 Hyposegmented Neuts Not Reportable 12/25/19 03:47 Hypogranular Neuts Not Reportable 12/25/19 03:47 Smudge Cells Not Reportable 12/25/19 03:47 Toxic Granulation Not Reportable 12/25/19 03:47 Toxic Vacuolation Not Reportable 12/25/19 03:47 Dohle Bodies Not Reportable 12/25/19 03:47 Pelger-Huet Anomaly Not Reportable 12/25/19 03:47 Dominique Rods Not Reportable 12/25/19 03:47 Platelet Estimate Consistent w auto 12/25/19 03:47 Clumped Platelets Not Reportable 12/25/19 03:47 Plt Clumps, EDTA Not Reportable 12/25/19 03:47 Large Platelets Not Reportable 12/25/19 03:47 Giant Platelets Not Reportable 12/25/19 03:47 Platelet Satelliting Not Reportable 12/25/19 03:47 Plt Morphology Comment Not Reportable 12/25/19 03:47 RBC Morphology Not Reportable 12/25/19 03:47 Dimorphic RBCs Not Reportable 12/25/19 03:47 Polychromasia Not Reportable 12/25/19 03:47 Hypochromasia Not Reportable 12/25/19 03:47 Poikilocytosis Not Reportable 12/25/19 03:47 Anisocytosis 1+ 12/25/19 03:47 Microcytosis Not Reportable 12/25/19 03:47 Macrocytosis Not Reportable 12/25/19 03:47 Spherocytes Not Reportable 12/25/19 03:47 Pappenheimer Bodies Not Reportable 12/25/19 03:47 Sickle Cells Not Reportable 12/25/19 03:47 Target Cells Not Reportable 12/25/19 03:47 Tear Drop Cells Not Reportable 12/25/19 03:47 Ovalocytes Not Reportable 12/25/19 03:47 Helmet Cells Not Reportable 12/25/19 03:47 Frias-[place] Bodies Not Reportable 12/25/19 03:47 [place] Rings Not Reportable 12/25/19 03:47 Jamshid Cells Not Reportable 12/25/19 03:47 Bite Cells Not Reportable 12/25/19 03:47 Crenated Cell Not Reportable 12/25/19 03:47 Elliptocytes Not Reportable 12/25/19 03:47 Acanthocytes (Spur) Not Reportable 12/25/19 03:47 Rouleaux Not Reportable 12/25/19 03:47 Hemoglobin C Crystals Not Reportable 12/25/19 03:47 Schistocytes Not Reportable 12/25/19 03:47 Malaria parasites Not Reportable 12/25/19 03:47 Gregg Bodies Not Reportable 12/25/19 03:47 Hem Pathologist Commnt No 12/25/19 03:47 PT 17.0 Sec. (12.2-14.9) H 11/23/19 03:47 INR 1.36 (0.87-1.13) H 11/23/19 03:47 APTT 128.2 Sec. (24.2-36.6) H* 11/23/19 03:47 Heparin Anti-Xa Level 0.31 U.I./ml (0.3-0.7) 11/23/19 09:03 ABG pH 7.433 pH Units (7.350-7.450) 03/08/20 13:25 ABG pCO2 40.2 mm Hg 03/08/20 13:25 ABG pO2 71.1 mm Hg (80.0-90.0) L 03/08/20 13:25 ABG HCO3 26.2 mmol/L (20.0-26.0) H 03/08/20 13:25 ABG O2 Saturation 97.0 % (95.0-99.0) 03/08/20 13:25 ABG O2 Content 11.0 (0.0-44) 03/08/20 13:25 ABG Base Excess 1.8 mmol/L (-2.0-3.0) 03/08/20 13:25 ABG Hemoglobin 8.2 gm/dl (12.0-16.0) L 03/08/20 13:25 ABG Carboxyhemoglobin 1.7 % (0.0-5.0) 03/08/20 13:25 ABG Methemoglobin 0.5 % (0.0-1.5) 03/08/20 13:25 Oxyhemoglobin 94.8 % (95.0-99.0) L 03/08/20 13:25 FiO2 21 % 03/08/20 13:25 Sodium 137 mmol/L (137-145) 03/13/20 03:50 Potassium 3.8 mmol/L (3.6-5.0) D 03/13/20 03:50 Chloride 103.1 mmol/L (98-107) 03/13/20 03:50 Carbon Dioxide 20 mmol/L (22-30) L 03/13/20 03:50 Anion Gap 18 mmol/L 03/13/20 03:50 BUN 30 mg/dL (7-17) H 03/13/20 03:50 Creatinine 0.6 mg/dL (0.7-1.2) L 03/13/20 03:50 Estimated GFR > 60 ml/min 03/13/20 03:50 BUN/Creatinine Ratio 50 % 03/13/20 03:50 Glucose 153 mg/dL (65-100) H 03/13/20 03:50 POC Glucose 112 (70-105) H 03/21/20 05:21 Lactic Acid 1.80 mmol/L (0.7-2.0) 11/25/19 05:05 Calcium 10.0 mg/dL (8.4-10.2) 03/13/20 03:50 Ionized Calcium 4.5 mg/dL (4.8-5.6) L 11/23/19 06:32 Phosphorus 4.20 mg/dL (2.5-4.5) D 11/28/19 08:59 Magnesium 1.90 mg/dL (1.7-2.3) 02/28/20 03:40 Total Bilirubin 0.40 mg/dL (0.1-1.2) 12/13/19 07:48 AST 27 units/L (5-40) 12/13/19 07:48 ALT 26 units/L (7-56) 12/13/19 07:48 Alkaline Phosphatase 316 units/L (35-129) H 12/13/19 07:48 Ammonia 42.0 umol/L (25-60) 11/29/19 13:41 Total Creatine Kinase 139 units/L (30-135) H 11/22/19 23:27 CK-MB (CK-2) 8.3 ng/mL (0.0-4.0) H 11/22/19 23:27 CK-MB (CK-2) Rel Index 5.9 (0-4) H 11/22/19 23:27 Troponin T < 0.010 ng/mL (0.00-0.029) 11/22/19 23:27 Total Protein 6.8 g/dL (6.3-8.2) 12/13/19 07:48 Albumin 2.4 g/dL (3.9-5) L 12/13/19 07:48 Albumin/Globulin Ratio 0.5 % 12/13/19 07:48 Lipase 18 units/L (13-60) 11/23/19 00:34 Procalcitonin 1.09 ng/mL (<0.15) 11/23/19 04:53 TSH 1.010 mlU/mL (0.270-4.200) 02/12/20 07:36 Free T4 1.08 ng/dL (0.76-1.46) 02/12/20 07:36 Urine Color Yellow (Yellow) 12/16/19 Unknown Urine Turbidity Slightly-cloudy (Clear) 12/16/19 Unknown Urine pH 5.0 (5.0-7.0) 12/16/19 Unknown Ur Specific [place] 1.018 (1.003-1.030) 12/16/19 Unknown Urine Protein 30 mg/dl mg/dL (Negative) 12/16/19 Unknown Urine Glucose (UA) Neg mg/dL (Negative) 12/16/19 Unknown Urine Ketones Neg mg/dL (Negative) 12/16/19 Unknown Urine Blood Sm (Negative) 12/16/19 Unknown Urine Nitrite Neg (Negative) 12/16/19 Unknown Urine Bilirubin Neg (Negative) 12/16/19 Unknown Urine Urobilinogen < 2.0 mg/dL (<2.0) 12/16/19 Unknown Ur Leukocyte Esterase Neg (Negative) 12/16/19 Unknown Urine WBC (Auto) 6.0 /HPF (0.0-6.0) 12/16/19 Unknown Urine RBC (Auto) 9.0 /HPF (0.0-6.0) 12/16/19 Unknown U Epithel Cells (Auto) < 1.0 /HPF (0-13.0) 12/16/19 Unknown Urine Bacteria (Auto) 2+ /HPF (Negative) 11/22/19 23:17 Hyaline Casts 3 /LPF 12/16/19 Unknown Granular Casts 3 /LPF 12/16/19 Unknown Urine Mucus Few /HPF 12/16/19 Unknown Vancomycin Trough 33.8 ug/mL (5.0-20.0) H 12/21/19 08:56 Random Vancomycin 16.2 ug/mL (0-40.0) 12/24/19 04:31 Salicylates < 0.3 mg/dL (2.8-20.0) L 11/22/19 23:27 Urine Opiates Screen Presumptive negative 11/22/19 23:17 Urine Methadone Screen Presumptive negative 11/22/19 23:17 Acetaminophen < 5.0 ug/mL (10.0-30.0) L 11/22/19 23:27 Ur Barbiturates Screen Presumptive negative 11/22/19 23:17 Ur Phencyclidine Scrn Presumptive negative 11/22/19 23:17 Ur Amphetamines Screen Presumptive negative 11/22/19 23:17 U Benzodiazepines Scrn Presumptive negative 11/22/19 23:17 Urine Cocaine Screen Presumptive negative 11/22/19 23:17 U Marijuana (THC) Screen Presumptive negative 11/22/19 23:17 Drugs of Abuse Note Disclamer 11/22/19 23:17 Plasma/Serum Alcohol 0.08 % (0-0.07) H 11/22/19 23:27 Coronavirus (PCR) Negative (Negative) 02/05/20 07:50 Hepatitis A IgM Ab Non-reactive (NonReactive) 11/23/19 01:19 Hep Bs Antigen Non-reactive (Negative) 11/23/19 01:19 Hep B Core IgM Ab Non-reactive (NonReactive) 11/23/19 01:19 Hepatitis C Antibody Non-reactive (NonReactive) 11/23/19 01:19 Blood Type O POSITIVE 12/21/19 14:54 Antibody Screen Negative 12/21/19 14:54 Crossmatch See Detail 12/21/19 14:54 - Diagnostic Impressions Diagnostic Impressions: Echocardiogram 11/23/19 03:58 Transthoracic Echocardiogram Indication: Cardiac arrest BP: 131/89 HR: 115 Conclusions *The study quality is technically difficult. *Global left ventricular wall motion and contractility are within normal limits. *The estimated ejection fraction is 55-60%. *Abnormal left ventricular diastolic filling is observed, consistent with impaired relaxation. *There is no pericardial effusion. Findings Procedure Info: The study quality is technically difficult. The study was technically limited due to the patient's inability to lay in the left lateral decubitus position. Left Ventricle: The left ventricular chamber size is normal. There is no left ventricular hypertrophy. Global left ventricular wall motion and contractility are within normal limits. Global left ventricular systolic function is normal. The estimated ejection fraction is 55-60%. Abnormal left ventricular diastolic filling is observed, consistent with impaired relaxation. Left Atrium: The left atrial chamber size is normal. Aortic Valve: The aortic valve leaflets are mildly thickened. Mitral Valve: The mitral valve leaflets are mildly thickened. There is no evidence of mitral regurgitation. Tricuspid Valve: The tricuspid valve leaflets are normal. There is trace tricuspid regurgitation. The right ventricular systolic pressure is calculated at 33 mmHg. Pulmonic Valve: The pulmonic valve appears normal. Pericardium: The pericardium appears normal. There is no pericardial effusion. Aorta: The aorta appears normal. Venous: The inferior vena cava appears normal in size. Measurements Chambers 2D Name Value Normal Range IVSd (2D) 0.94 cm (0.6 - 1.1) LVPWd (2D) 0.81 cm (0.6 - 1.1) LVIDd (2D) 3.6 cm (3.7 - 5.6) LVIDs (2D) 2.27 cm (2 - 3.8) LV FS (2D) 36.93 % - EF Teichholz (2D) 67.76 % - Ao root diameter (2D) 3.03 cm (2 - 3.7) Volumes/Mass Name Value Normal Range LA ESV SP 4CH (A/L) 16.89 ml - LA ESV SP 4CH (MOD) 15.52 ml - Diastolic/Systolic Function Name Value Normal Range MV E-wave Vmax 0.55 m/sec - MV deceleration time 200.89 msec - MV A-wave Vmax 0.68 m/sec - MV E:A ratio 0.82 ratio - Aortic Valve Name Value Normal Range AV Vmax 1.1 m/sec - AV VTI 15.9 cm - AV peak gradient 4.86 mmHg - AV mean gradient 2.59 mmHg - LVOT diameter 2 cm - LVOT Vmax 1.03 m/sec - LVOT VTI 15.87 cm - LVOT peak gradient 4.24 mmHg - LVOT mean gradient 2.41 mmHg - SV LVOT 49.77 ml - JOSÉ MIGUEL (continuity Vmax) 2.93 cm2 - JOSÉ MIGUEL (continuity VTI) 3.13 cm2 - Tricuspid Valve Name Value Normal Range TR Vmax 2.74 m/sec - TR peak gradient 303 mmHg - RAP 3 mmHg - RVSP 33 mmHg - IVC diameter 1.77 cm (1.2 - 2.3) Pulmonic Valve/Qp:Qs Name Value Normal Range PV Vmax 0.77 m/sec - PV peak gradient 2.4 mmHg - PV acceleration time 114.18 msec - Echocardiogram Limited Views 12/17/19 14:53 Transthoracic Echocardiogram Indication: R/O Vegetations BP: 144/83 HR: 133 Conclusions *Global left ventricular systolic function is mildly decreased. *The estimated ejection fraction is 45-50%. *A trivial pericardial effusion is visualized. Findings Left Ventricle: The left ventricular chamber size is normal. Global left ventricular systolic function is mildly decreased. The estimated ejection fraction is 45-50%. Left Atrium: The left atrial chamber size is normal. Right Ventricle: The right ventricular cavity size is normal. Right Atrium: The right atrial cavity size is normal. Aortic Valve: The aortic valve is not well visualized. There is no evidence of aortic regurgitation. Mitral Valve: The mitral valve leaflets are mildly thickened. There is trace of mitral regurgitation. Tricuspid Valve: The tricuspid valve leaflets are mildly thickened. There is trace tricuspid regurgitation. The right ventricular systolic pressure is calculated at 29 mmHg. Pulmonic Valve: The pulmonic valve is not well visualized. There is no evidence of pulmonic regurgitation. Pericardium: A trivial pericardial effusion is visualized. Aorta: There is no dilatation of the ascending aorta. There is no dilatation of the aortic root. Venous: The inferior vena cava appears normal in size. There is a greater than 50% respiratory change in the inferior vena cava dimension. Measurements Chambers 2D Name Value Normal Range IVSd (2D) 0.83 cm (0.6 - 1.1) LVPWd (2D) 0.98 cm (0.6 - 1.1) LVIDd (2D) 3.71 cm (3.7 - 5.6) LVIDs (2D) 2.93 cm (2 - 3.8) LV FS (2D) 21.12 % - EF Teichholz (2D) 43.71 % - Ao root diameter (2D) 3.02 cm (2 - 3.7) Volumes/Mass Name Value Normal Range LA ESV SP 4CH (A/L) 36.8 ml - LA ESV SP 2CH (A/L) 45.89 ml - LA ESV BP (A/L) 42.35 ml - LA ESV BP (A/L) index 26.63 ml/m2 - LA ESV SP 4CH (MOD) 34.42 ml - LA ESV SP 2CH (MOD) 44.21 ml - LA ESV BP (MOD) 39.82 ml - LA ESV BP (MOD) index 25.05 ml/m2 - Aortic Valve Name Value Normal Range LVOT diameter 1.63 cm - Tricuspid Valve Name Value Normal Range TR Vmax 2.56 m/sec - TR peak gradient 26 mmHg - RAP 3 mmHg - RVSP 29 mmHg - IVC diameter 1.83 cm (1.2 - 2.3) [place]/IV: Voiding Method Incontinent IV Catheter Type [Forearm] Peripheral IV IV Catheter Type [Left Forearm INT / Saline Lock ] IV Catheter Type [Right INT / Saline Lock Antecubital] IV Catheter Type [Right Hand] INT / Saline Lock IV Catheter Type [Right Wrist] Peripheral IV IV Catheter Type [Left Wrist] Peripheral IV IV Catheter Type [Left Peripheral IV Antecubital] IV Catheter Type [Right INT / Saline Lock Forearm] IV Catheter Type [Left Hand] INT / Saline Lock Active Medications - Current Medications Current Medications: Generic Name Dose Route Start Last Admin Trade Name Freq PRN Reason Stop Dose Admin Acetaminophen 650 mg 12/06/19 10:25 03/21/20 10:28 Tylenol FEEDTUBE 650 mg Q6H PRN Administration TEMP >/=100.3 Acetylcysteine 200 mg 02/16/20 20:00 03/21/20 07:23 Mucomyst Inhalation INHALATION 200 mg Q12HRT LUCHO Administration Albuterol/Ipratropium 1 ampul 03/18/20 20:00 03/21/20 07:21 Duoneb *Not For Prn Use* IH 1 ampul Q6HRT LUCHO Administration Alprazolam 1 mg 02/21/20 18:24 03/20/20 16:12 Xanax PO 1 mg Q8H PRN Administration Anxiety Lipase/Protease/Amylase 1 each 11/23/19 11:50 Pancreaze 10,500 Unit FEEDTUBE PRN PRN Use w/ sod bicarb for FT Bisacodyl 10 mg 02/06/20 13:57 Dulcolax ME QDAY PRN Constipation unrelieved by MOM Enoxaparin Sodium 40 mg 03/07/20 22:00 03/20/20 21:14 Enoxaparin SUB-Q 40 mg QDAY@2200 LUCHO Administration Glycopyrrolate 2 mg 12/31/19 20:00 03/21/20 11:03 Robinul PO 2 mg TID LUCHO Administration Haloperidol Lactate 5 mg 03/05/20 09:22 03/16/20 08:35 Haldol IM 5 mg Q6H PRN Administration Agitation Hydralazine HCl 10 mg 11/24/19 00:45 03/03/20 05:57 Apresoline IV 10 mg Q6H PRN Administration SBP > 160 Hydroxyzine Pamoate 25 mg 12/06/19 10:00 03/21/20 10:29 Vistaril PO 25 mg BID LUCHO Administration Lansoprazole 30 mg 11/27/19 10:00 03/21/20 10:31 Prevacid Solutab FEEDTUBE 30 mg QDAY LUCHO Administration Levetiracetam 500 mg 11/29/19 10:00 03/21/20 10:31 Keppra PO 500 mg BID LUCHO Administration Metoprolol Tartrate 12.5 mg 02/23/20 22:00 03/21/20 10:33 Metoprolol PO 12.5 mg BID LUCHO Administration Mirtazapine 30 mg 12/06/19 10:00 03/21/20 10:29 Remeron PO 30 mg DAILY LUCHO Administration Nicotine 21 mg 02/16/20 13:00 03/21/20 10:31 Habitrol TD 21 mg QDAY LUCHO Administration Ondansetron HCl 4 mg 12/10/19 07:53 02/25/20 02:51 Zofran IV 4 mg Q4H PRN Administration Nausea And Vomiting Polyethylene Glycol 17 gm 02/06/20 13:57 Miralax 3350 PO QDAY PRN Constipation Quetiapine Fumarate 100 mg 03/06/20 10:00 03/21/20 10:30 Seroquel FEEDTUBE 100 mg BID LUCHO Administration Scopolamine 1 each 02/08/20 15:00 03/21/20 10:29 Transderm-Scop TD 1 each Q3D LUCHO Administration Sertraline HCl 25 mg 01/01/20 10:00 03/21/20 10:30 Zoloft PO 25 mg QDAY LUCHO Administration Simple Syrup 15 ml 11/23/19 11:50 Simple Syrup FEEDTUBE PRN PRN Hypoglycemia BG<70 Simple Syrup 30 ml 11/23/19 11:50 Simple Syrup FEEDTUBE PRN PRN Hypoglycemia Sodium Bicarbonate 325 mg 11/23/19 11:50 Sodium Bicarbonate FEEDTUBE PRN PRN For Clogged Feeding Tube Nutrition/Malnutrition Assess - Dietary Evaluation Nutrition/Malnutrition Findings: Nutrition Notes Start: 11/23/19 11: 29 Freq: Status: Active Protocol: Document 03/20/20 12:53 LM (Rec: 03/20/20 12:55 LM [email or web address]) Nutrition Notes Initial or Follow up Reassessment Current Diagnosis Hypertension Other Pertinent Diagnosis Cardaic arrest, ETOH dependence, UTI Current Diet Jevity 1.2 at 60ml/hr Labs/Tests Reviewed Pertinent Medications Reviewed Height 5 ft 6 in Weight 45.6 kg [place] Body Weight (kg) 59.09 BMI 16.2 Subjective/Other Information TF running at goal. Percent of energy/protein needs met: 100%/100% Burn Absent Trauma Absent GI Symptoms None Current % PO Negligible Interpretation of Weight Loss (severe) >2% in 1 week Muscle Mass Mild Depletion (non-severe) #2 Nutrition Diagnosis Malnutrition Diagnosis Progress(for reassessment Continues documentation) #1 Nutrition Diagnosis Inadequate oral intake Diagnosis Progress(for reassessment Continues documentation) Is patient on ventilator? No Is Patient Ambulatory and/or Out of Bed No REE-([facility]-confined to bed) 1286.028 Kcal/Kg value to use for calculation 38 Approximate Energy Requirements Using 1733 kcal/Kg Calculation Used for Recommendations Kcal/kg Additional Notes Protein: 60-75g (1.2-1.5g/kg) Fluid: 1 ml/kcal Nutrition Intervention Change Diet Order: Continue TF Nutrition Support: Jevity 1.2 at 60ml/hr Flush 100ml q4h Kcal 1,728 Protein (gm) 80 Fluid (mL) 1,162 Goal #1 TF tolerance Goal #2 Meet at least 80% of energy and protein needs via TF Goal #3 Wt gain/maintenacne Anticipated Discharge Needs: TF Follow-Up By: 03/27/20 Additional Comments F/u for TF tolerance
[2020-03-21] MEDS: ENOXAPARIN 40 MG/0.4 ML INJ SUB-Q SCH (21:43)
[2020-03-21] MEDS: ALPRAZolam 1 MG TAB PO PRN (21:43)
[2020-03-22] MEDS: IPRATROPIUM/ALBUTEROL SULFATE 3 ML AMPUL.NEB IH SCH ×4 (03:04→20:25)
[2020-03-22] MEDS: ACETYLCYSTEINE 20% 200 MG/1 ML *FOR INHALATION USE INHALATION SCH ×2 (07:38→20:25)
[2020-03-22] MEDS: METOPROLOL TARTRATE 25 MG TAB PO SCH ×2 (09:53→21:14)
[2020-03-22] MEDS: levETIRAcetam 500 MG/5 ML ORAL LIQD PO SCH ×2 (09:54→21:15)
[2020-03-22] MEDS: LANSOPRAZOLE 30 MG SOLUTAB FEEDTUBE SCH (09:54)
[2020-03-22] MEDS: SERTRALINE 50 MG TAB PO SCH (09:54)
[2020-03-22] MEDS: MIRTAZAPINE 30 MG TAB PO SCH (09:55)
[2020-03-22] MEDS: QUEtiapine 100 MG TAB FEEDTUBE SCH ×2 (09:55→21:15)
[2020-03-22] MEDS: GLYCOPYRROLATE 1 MG TAB PO SCH ×3 (09:55→21:14)
[2020-03-22] MEDS: hydrOXYzine PAMOATE 25 MG CAP PO SCH ×2 (09:56→21:14)
[2020-03-22] MEDS: NICOTINE 21 MG/24 HR PATCH TD SCH (09:56)
[2020-03-22] MEDS: ALPRAZolam 1 MG TAB PO PRN ×2 (10:00→21:14)
--- NOTE | 2020-03-22 11:05 | Progress Note ---
Assessment and Plan Assessment and plan: 54-year-old female with a past medical history of Hypertension, Depression, Tobacco use Disorder, Alcohol use Disorder as confirmed by Daughter and pt's mother presents to the hospital status post cardiac arrest at home. EMS found pt in [facility]. They were unable to intubate patient with a ET tube because she was clenching down therefore Joe airway placed. Per the ED physician who evaluated pt, Patient presented with a pulse, intermittent respirations, and bagging support via Joe airway with O2 sat of 100%. Accu-Chek of 71 obtained by EMS. She was intubated in the ER and called for admission. Following admission patient was diagnosed with anoxic brain injury, sepsis with MRSA bacteremia and MSSA pneumonia, alcoholic liver disease. Family member initially wished for full code then changed to DNR, patient treated with IV antibiotics for sepsis, status post trach and PEG on 12/13/19. Weaned off from the vent and put on T- piece. Patient is uninsured, waiting for placement, guarded prognosis. 03/07: Returning to service no acute changes are noted. Continue current management while awaiting placement. Intermittent labs. Base of neck also around tracheostomy tube preventing downgrading. Continue appropriate wound care. 03/08: Plan of care unchanged continues on aerosol trach collar 28% of oxygen. Continue wound care management placement still pending status decision. 03/09: Continue current treatment plan. Continue aspiration precaution 03/10: Continue current management, Restraints as patient still pulling, awaiting placement 03/11: Continue supportive care, intermittent suctioning and pulmonary toilet. awaiting placement. 03/12: Continue supportive care, Give a bolus of fluids due to Hypercalcemia, Monitor Hyperkalemia with labs in am, No arrhythmia. Patient vomiting, concern for aspiration, Chest xray ordered and no active disease noted. Keep HOB >45% 03/13: No evidence of aspiration on xray. Continue supportive care. 03/14: Continue supportive care. Capping trials to start. Discussed with patients nursing and case management to continue daily PT by the Rehab team. 03/15: Discussed again with staff to start capping trial. 03/16: Do not see any indication the capping trial has started will discuss with respiratory therapist. Continue restraints. Still awaiting family decision patient has had some remarkable improvement considering the fact that she was able to stay around night without restraints. We will continue daily trial of this method. Discussed plan with nursing staff 03/17: Continue current care. Currently continue restraints. Continue current management. Continue physical therapy daily. 03/18: Capping trial successful and will possibly get decannulated today. Continue placement. 03/19: Now decannulated and doing well. Begin discharge planning. 03/20: Stable, no new complaints. 03/21: No new complaints. Continue supportive 03/22: No new complaints, still with some confusion, and agitation requiring restraints. Will require daily PT/OT and continue to work with Case management for placement / Anoxic brain injury: suspected CT head: No acute abnormality. EEG ordered showed Generalized slowing. No seizures or epileptiform activity. -Patient now opening her eyes, can speak and able to follow command -As needed haldol for agitation /Acute Respiratory failure -due to MSSA PNA -s/p intubation, s/p trach and PEG on 12/12 with mechanical ventilation, now on T-piece - CTA was done and negative for PE, - Echo quality is poor, showed diastolic dysfunction - continue weaning as tolerated -Continue appropriate and adequate tracheostomy care /Tracheostomy site ulceration -Continue appropriate wound management try to keep area dry. /Anemia, microcytic - Status post 3 units PRBC transfusion, H&H low stable /Acute metabolic encephalopathy/toxic encephalopathy due to the above - cont supportive care /Hyperammonemia - likely from liver disease related to EtOH abuse - Patient had elevated ammonia level and treated with lactulose /Metabolic Acidosis -Alcohol ketoacidosis vs hypoprofusion -Continue to monitor /ELevated LFTs, stable now - due to ischemic hepatitis. /Leucocytosis with sepsis - Source MRSA bacteremia and MSSA pneumonia. UA showed pyuria. RUQ US showed no ascites. - Repeat TTE negative for vegetation. Completed 7 days of Ceftriaxone on 11/29/2019. -Treated with Abx vancomycin 1 gm IV q 12 hour total 2 week till 12/30/2019 /Severe protein calorie malnutrition Dietitian consult to assist in management. /MSSA pneumonia: Status post vancomycin till 12/30/2019 /Alcohol use Disorder - given ongoing Alcohol use almost daily, s/p IV Thiamine - monitor /Severe hypokalemia -Repleted /Seizure disorder: treat with Keppra /H. Influenzae, tracheobronchitis, treated with abx /Moderate to severe fecal impaction - will add stool softner DNR CODE STATUS Disposition: prognosis guarded. Family okay for DNR, PT recommended subacute rehab, discharge pending on placement. Negative for COVID 19 History Interval history: Patient seen and examined, resting comfortable. No new complaints. still with confusion Hospitalist Physical - Physical exam Narrative exam: General appearance: Present: Appears older than stated age, restful - EENT Eyes: no scleral icterus, no conjunctival injection, pupil not reactive ENT: clear oral mucosa, dentition normal, no oropharyngeal erythema Ears: bilateral: normal - Neck Neck: stoma clena and dry - Respiratory Respiratory effort: other dressing over the stoma Respiratory: bilateral: rales - Cardiovascular Rhythm: regular Heart Sounds: Present: S1 & S2. Absent: gallop, rub Extremities: pulses intact, No edema, normal color - Gastrointestinal General gastrointestinal: Present: soft, non-tender, non-distended, normal bowel sounds - Integumentary Integumentary: clear, warm, dry - Musculoskeletal Musculoskeletal: No joint swelling or tenderness - Neurologic Neurologic: other (2+ reflexes throughout). respond to commend and nods head. generalized weakness, verbal - Psychiatric Psychiatric: co-operative - Constitutional Vitals: Temp Pulse Resp BP Pulse Ox 97.4 F L 88 16 120/76 99 03/22/20 04:25 03/22/20 09:53 03/22/20 07:39 03/22/20 09:53 03/22/20 07:40 General appearance: Present: mild distress, cachectic, disheveled, other (Noncommunicative) HEART Score - HEART Score Troponin: Troponin T < 0.010 ng/mL (0.00-0.029) 11/22/19 23:27 Results - Labs CBC & Chem 7: 03/12/20 04:53 03/13/20 03:50 Labs: Laboratory Last Values WBC 9.1 K/mm3 (4.5-11.0) 03/12/20 04:53 RBC 3.90 M/mm3 (3.65-5.03) 03/12/20 04:53 Hgb 11.5 gm/dl (10.1-14.3) 03/12/20 04:53 Hct 34.2 % (30.3-42.9) 03/12/20 04:53 MCV 88 fl (79-97) 03/12/20 04:53 MCH 29 pg (28-32) 03/12/20 04:53 MCHC 34 % (30-34) 03/12/20 04:53 RDW 14.4 % (13.2-15.2) 03/12/20 04:53 Plt Count 625 K/mm3 (140-440) H 03/12/20 04:53 Lymph % (Auto) 27.8 % (13.4-35.0) 03/06/20 03:37 [place] % (Auto) 9.1 % (0.0-7.3) H 03/06/20 03:37 Eos % (Auto) 2.8 % (0.0-4.3) 03/06/20 03:37 Baso % (Auto) 0.7 % (0.0-1.8) 03/06/20 03:37 Lymph # 2.2 K/mm3 (1.2-5.4) 03/06/20 03:37 [place] # 0.7 K/mm3 (0.0-0.8) 03/06/20 03:37 Eos # 0.2 K/mm3 (0.0-0.4) 03/06/20 03:37 Baso # 0.1 K/mm3 (0.0-0.1) 03/06/20 03:37 Add Manual Diff Complete 12/25/19 03:47 Total Counted 200 12/25/19 03:47 Seg Neutrophils % 59.6 % (40.0-70.0) 03/06/20 03:37 Seg Neuts % (Manual) 97.5 % (40.0-70.0) H 12/25/19 03:47 Band Neutrophils % 0 % 12/25/19 03:47 Lymphocytes % (Manual) 1.0 % (13.4-35.0) L 12/25/19 03:47 Reactive Lymphs % (Man) 0 % 12/25/19 03:47 Monocytes % (Manual) 1.5 % (0.0-7.3) 12/25/19 03:47 Eosinophils % (Manual) 0 % (0.0-4.3) 12/25/19 03:47 Basophils % (Manual) 0 % (0.0-1.8) 12/25/19 03:47 Metamyelocytes % 0 % 12/25/19 03:47 Myelocytes % 0 % 12/25/19 03:47 Promyelocytes % 0 % 12/25/19 03:47 Blast Cells % 0 % 12/25/19 03:47 Nucleated RBC % Not Reportable 12/25/19 03:47 Seg Neutrophils # 4.8 K/mm3 (1.8-7.7) 03/06/20 03:37 Seg Neutrophils # Man 35.3 K/mm3 (1.8-7.7) H 12/25/19 03:47 Band Neutrophils # 0.0 K/mm3 12/25/19 03:47 Lymphocytes # (Manual) 0.4 K/mm3 (1.2-5.4) L 12/25/19 03:47 Abs React Lymphs (Man) 0.0 K/mm3 12/25/19 03:47 Monocytes # (Manual) 0.5 K/mm3 (0.0-0.8) 12/25/19 03:47 Eosinophils # (Manual) 0.0 K/mm3 (0.0-0.4) 12/25/19 03:47 Basophils # (Manual) 0.0 K/mm3 (0.0-0.1) 12/25/19 03:47 Metamyelocytes # 0.0 K/mm3 12/25/19 03:47 Myelocytes # 0.0 K/mm3 12/25/19 03:47 Promyelocytes # 0.0 K/mm3 12/25/19 03:47 Blast Cells # 0.0 K/mm3 12/25/19 03:47 Pathologist Review 12/13/19 07:48 WBC Morphology Not Reportable 12/25/19 03:47 Hypersegmented Neuts Not Reportable 12/25/19 03:47 Hyposegmented Neuts Not Reportable 12/25/19 03:47 Hypogranular Neuts Not Reportable 12/25/19 03:47 Smudge Cells Not Reportable 12/25/19 03:47 Toxic Granulation Not Reportable 12/25/19 03:47 Toxic Vacuolation Not Reportable 12/25/19 03:47 Dohle Bodies Not Reportable 12/25/19 03:47 Pelger-Huet Anomaly Not Reportable 12/25/19 03:47 Dominique Rods Not Reportable 12/25/19 03:47 Platelet Estimate Consistent w auto 12/25/19 03:47 Clumped Platelets Not Reportable 12/25/19 03:47 Plt Clumps, EDTA Not Reportable 12/25/19 03:47 Large Platelets Not Reportable 12/25/19 03:47 Giant Platelets Not Reportable 12/25/19 03:47 Platelet Satelliting Not Reportable 12/25/19 03:47 Plt Morphology Comment Not Reportable 12/25/19 03:47 RBC Morphology Not Reportable 12/25/19 03:47 Dimorphic RBCs Not Reportable 12/25/19 03:47 Polychromasia Not Reportable 12/25/19 03:47 Hypochromasia Not Reportable 12/25/19 03:47 Poikilocytosis Not Reportable 12/25/19 03:47 Anisocytosis 1+ 12/25/19 03:47 Microcytosis Not Reportable 12/25/19 03:47 Macrocytosis Not Reportable 12/25/19 03:47 Spherocytes Not Reportable 12/25/19 03:47 Pappenheimer Bodies Not Reportable 12/25/19 03:47 Sickle Cells Not Reportable 12/25/19 03:47 Target Cells Not Reportable 12/25/19 03:47 Tear Drop Cells Not Reportable 12/25/19 03:47 Ovalocytes Not Reportable 12/25/19 03:47 Helmet Cells Not Reportable 12/25/19 03:47 Fri[place] Bodies Not Reportable 12/25/19 03:47 [place] Rings Not Reportable 12/25/19 03:47 [place] Cells Not Reportable 12/25/19 03:47 Bite Cells Not Reportable 12/25/19 03:47 Crenated Cell Not Reportable 12/25/19 03:47 Elliptocytes Not Reportable 12/25/19 03:47 Acanthocytes (Spur) Not Reportable 12/25/19 03:47 Rouleaux Not Reportable 12/25/19 03:47 Hemoglobin C Crystals Not Reportable 12/25/19 03:47 Schistocytes Not Reportable 12/25/19 03:47 Malaria parasites Not Reportable 12/25/19 03:47 Gregg Bodies Not Reportable 12/25/19 03:47 Hem Pathologist Commnt No 12/25/19 03:47 PT 17.0 Sec. (12.2-14.9) H 11/23/19 03:47 INR 1.36 (0.87-1.13) H 11/23/19 03:47 APTT 128.2 Sec. (24.2-36.6) H* 11/23/19 03:47 Heparin Anti-Xa Level 0.31 U.I./ml (0.3-0.7) 11/23/19 09:03 ABG pH 7.433 pH Units (7.350-7.450) 03/08/20 13:25 ABG pCO2 40.2 mm Hg 03/08/20 13:25 ABG pO2 71.1 mm Hg (80.0-90.0) L 03/08/20 13:25 ABG HCO3 26.2 mmol/L (20.0-26.0) H 03/08/20 13:25 ABG O2 Saturation 97.0 % (95.0-99.0) 03/08/20 13:25 ABG O2 Content 11.0 (0.0-44) 03/08/20 13:25 ABG Base Excess 1.8 mmol/L (-2.0-3.0) 03/08/20 13:25 ABG Hemoglobin 8.2 gm/dl (12.0-16.0) L 03/08/20 13:25 ABG Carboxyhemoglobin 1.7 % (0.0-5.0) 03/08/20 13:25 ABG Methemoglobin 0.5 % (0.0-1.5) 03/08/20 13:25 Oxyhemoglobin 94.8 % (95.0-99.0) L 03/08/20 13:25 FiO2 21 % 03/08/20 13:25 Sodium 137 mmol/L (137-145) 03/13/20 03:50 Potassium 3.8 mmol/L (3.6-5.0) D 03/13/20 03:50 Chloride 103.1 mmol/L (98-107) 03/13/20 03:50 Carbon Dioxide 20 mmol/L (22-30) L 03/13/20 03:50 Anion Gap 18 mmol/L 03/13/20 03:50 BUN 30 mg/dL (7-17) H 03/13/20 03:50 Creatinine 0.6 mg/dL (0.7-1.2) L 03/13/20 03:50 Estimated GFR > 60 ml/min 03/13/20 03:50 BUN/Creatinine Ratio 50 % 03/13/20 03:50 Glucose 153 mg/dL (65-100) H 03/13/20 03:50 POC Glucose 157 (70-105) H 03/22/20 01:14 Lactic Acid 1.80 mmol/L (0.7-2.0) 11/25/19 05:05 Calcium 10.0 mg/dL (8.4-10.2) 03/13/20 03:50 Ionized Calcium 4.5 mg/dL (4.8-5.6) L 11/23/19 06:32 Phosphorus 4.20 mg/dL (2.5-4.5) D 11/28/19 08:59 Magnesium 1.90 mg/dL (1.7-2.3) 02/28/20 03:40 Total Bilirubin 0.40 mg/dL (0.1-1.2) 12/13/19 07:48 AST 27 units/L (5-40) 12/13/19 07:48 ALT 26 units/L (7-56) 12/13/19 07:48 Alkaline Phosphatase 316 units/L (35-129) H 12/13/19 07:48 Ammonia 42.0 umol/L (25-60) 11/29/19 13:41 Total Creatine Kinase 139 units/L (30-135) H 11/22/19 23:27 CK-MB (CK-2) 8.3 ng/mL (0.0-4.0) H 11/22/19 23:27 CK-MB (CK-2) Rel Index 5.9 (0-4) H 11/22/19 23:27 Troponin T < 0.010 ng/mL (0.00-0.029) 11/22/19 23:27 Total Protein 6.8 g/dL (6.3-8.2) 12/13/19 07:48 Albumin 2.4 g/dL (3.9-5) L 12/13/19 07:48 Albumin/Globulin Ratio 0.5 % 12/13/19 07:48 Lipase 18 units/L (13-60) 11/23/19 00:34 Procalcitonin 1.09 ng/mL (<0.15) 11/23/19 04:53 TSH 1.010 mlU/mL (0.270-4.200) 02/12/20 07:36 Free T4 1.08 ng/dL (0.76-1.46) 02/12/20 07:36 Urine Color Yellow (Yellow) 12/16/19 Unknown Urine Turbidity Slightly-cloudy (Clear) 12/16/19 Unknown Urine pH 5.0 (5.0-7.0) 12/16/19 Unknown Ur Specific [place] 1.018 (1.003-1.030) 12/16/19 Unknown Urine Protein 30 mg/dl mg/dL (Negative) 12/16/19 Unknown Urine Glucose (UA) Neg mg/dL (Negative) 12/16/19 Unknown Urine Ketones Neg mg/dL (Negative) 12/16/19 Unknown Urine Blood Sm (Negative) 12/16/19 Unknown Urine Nitrite Neg (Negative) 12/16/19 Unknown Urine Bilirubin Neg (Negative) 12/16/19 Unknown Urine Urobilinogen < 2.0 mg/dL (<2.0) 12/16/19 Unknown Ur Leukocyte Esterase Neg (Negative) 12/16/19 Unknown Urine WBC (Auto) 6.0 /HPF (0.0-6.0) 12/16/19 Unknown Urine RBC (Auto) 9.0 /HPF (0.0-6.0) 12/16/19 Unknown U Epithel Cells (Auto) < 1.0 /HPF (0-13.0) 12/16/19 Unknown Urine Bacteria (Auto) 2+ /HPF (Negative) 11/22/19 23:17 Hyaline Casts 3 /LPF 12/16/19 Unknown Granular Casts 3 /LPF 12/16/19 Unknown Urine Mucus Few /HPF 12/16/19 Unknown Vancomycin Trough 33.8 ug/mL (5.0-20.0) H 12/21/19 08:56 Random Vancomycin 16.2 ug/mL (0-40.0) 12/24/19 04:31 Salicylates < 0.3 mg/dL (2.8-20.0) L 11/22/19 23:27 Urine Opiates Screen Presumptive negative 11/22/19 23:17 Urine Methadone Screen Presumptive negative 11/22/19 23:17 Acetaminophen < 5.0 ug/mL (10.0-30.0) L 11/22/19 23:27 Ur Barbiturates Screen Presumptive negative 11/22/19 23:17 Ur Phencyclidine Scrn Presumptive negative 11/22/19 23:17 Ur Amphetamines Screen Presumptive negative 11/22/19 23:17 U Benzodiazepines Scrn Presumptive negative 11/22/19 23:17 Urine Cocaine Screen Presumptive negative 11/22/19 23:17 U Marijuana (THC) Screen Presumptive negative 11/22/19 23:17 Drugs of Abuse Note Disclamer 11/22/19 23:17 Plasma/Serum Alcohol 0.08 % (0-0.07) H 11/22/19 23:27 Coronavirus (PCR) Negative (Negative) 02/05/20 07:50 Hepatitis A IgM Ab Non-reactive (NonReactive) 11/23/19 01:19 Hep Bs Antigen Non-reactive (Negative) 11/23/19 01:19 Hep B Core IgM Ab Non-reactive (NonReactive) 11/23/19 01:19 Hepatitis C Antibody Non-reactive (NonReactive) 11/23/19 01:19 Blood Type O POSITIVE 12/21/19 14:54 Antibody Screen Negative 12/21/19 14:54 Crossmatch See Detail 12/21/19 14:54 - Diagnostic Impressions Diagnostic Impressions: Echocardiogram 11/23/19 03:58 Transthoracic Echocardiogram Indication: Cardiac arrest BP: 131/89 HR: 115 Conclusions *The study quality is technically difficult. *Global left ventricular wall motion and contractility are within normal limits. *The estimated ejection fraction is 55-60%. *Abnormal left ventricular diastolic filling is observed, consistent with impaired relaxation. *There is no pericardial effusion. Findings Procedure Info: The study quality is technically difficult. The study was technically limited due to the patient's inability to lay in the left lateral decubitus position. Left Ventricle: The left ventricular chamber size is normal. There is no left ventricular hypertrophy. Global left ventricular wall motion and contractility are within normal limits. Global left ventricular systolic function is normal. The estimated ejection fraction is 55-60%. Abnormal left ventricular diastolic filling is observed, consistent with impaired relaxation. Left Atrium: The left atrial chamber size is normal. Aortic Valve: The aortic valve leaflets are mildly thickened. Mitral Valve: The mitral valve leaflets are mildly thickened. There is no evidence of mitral regurgitation. Tricuspid Valve: The tricuspid valve leaflets are normal. There is trace tricuspid regurgitation. The right ventricular systolic pressure is calculated at 33 mmHg. Pulmonic Valve: The pulmonic valve appears normal. Pericardium: The pericardium appears normal. There is no pericardial effusion. Aorta: The aorta appears normal. Venous: The inferior vena cava appears normal in size. Measurements Chambers 2D Name Value Normal Range IVSd (2D) 0.94 cm (0.6 - 1.1) LVPWd (2D) 0.81 cm (0.6 - 1.1) LVIDd (2D) 3.6 cm (3.7 - 5.6) LVIDs (2D) 2.27 cm (2 - 3.8) LV FS (2D) 36.93 % - EF Teichholz (2D) 67.76 % - Ao root diameter (2D) 3.03 cm (2 - 3.7) Volumes/Mass Name Value Normal Range LA ESV SP 4CH (A/L) 16.89 ml - LA ESV SP 4CH (MOD) 15.52 ml - Diastolic/Systolic Function Name Value Normal Range MV E-wave Vmax 0.55 m/sec - MV deceleration time 200.89 msec - MV A-wave Vmax 0.68 m/sec - MV E:A ratio 0.82 ratio - Aortic Valve Name Value Normal Range AV Vmax 1.1 m/sec - AV VTI 15.9 cm - AV peak gradient 4.86 mmHg - AV mean gradient 2.59 mmHg - LVOT diameter 2 cm - LVOT Vmax 1.03 m/sec - LVOT VTI 15.87 cm - LVOT peak gradient 4.24 mmHg - LVOT mean gradient 2.41 mmHg - SV LVOT 49.77 ml - JOSÉ MIGUEL (continuity Vmax) 2.93 cm2 - JOSÉ MIGUEL (continuity VTI) 3.13 cm2 - Tricuspid Valve Name Value Normal Range TR Vmax 2.74 m/sec - TR peak gradient 303 mmHg - RAP 3 mmHg - RVSP 33 mmHg - IVC diameter 1.77 cm (1.2 - 2.3) Pulmonic Valve/Qp:Qs Name Value Normal Range PV Vmax 0.77 m/sec - PV peak gradient 2.4 mmHg - PV acceleration time 114.18 msec - Echocardiogram Limited Views 12/17/19 14:53 Transthoracic Echocardiogram Indication: R/O Vegetations BP: 144/83 HR: 133 Conclusions *Global left ventricular systolic function is mildly decreased. *The estimated ejection fraction is 45-50%. *A trivial pericardial effusion is visualized. Findings Left Ventricle: The left ventricular chamber size is normal. Global left ventricular systolic function is mildly decreased. The estimated ejection fraction is 45-50%. Left Atrium: The left atrial chamber size is normal. Right Ventricle: The right ventricular cavity size is normal. Right Atrium: The right atrial cavity size is normal. Aortic Valve: The aortic valve is not well visualized. There is no evidence of aortic regurgitation. Mitral Valve: The mitral valve leaflets are mildly thickened. There is trace of mitral regurgitation. Tricuspid Valve: The tricuspid valve leaflets are mildly thickened. There is trace tricuspid regurgitation. The right ventricular systolic pressure is calculated at 29 mmHg. Pulmonic Valve: The pulmonic valve is not well visualized. There is no evidence of pulmonic regurgitation. Pericardium: A trivial pericardial effusion is visualized. Aorta: There is no dilatation of the ascending aorta. There is no dilatation of the aortic root. Venous: The inferior vena cava appears normal in size. There is a greater than 50% respiratory change in the inferior vena cava dimension. Measurements Chambers 2D Name Value Normal Range IVSd (2D) 0.83 cm (0.6 - 1.1) LVPWd (2D) 0.98 cm (0.6 - 1.1) LVIDd (2D) 3.71 cm (3.7 - 5.6) LVIDs (2D) 2.93 cm (2 - 3.8) LV FS (2D) 21.12 % - EF Teichholz (2D) 43.71 % - Ao root diameter (2D) 3.02 cm (2 - 3.7) Volumes/Mass Name Value Normal Range LA ESV SP 4CH (A/L) 36.8 ml - LA ESV SP 2CH (A/L) 45.89 ml - LA ESV BP (A/L) 42.35 ml - LA ESV BP (A/L) index 26.63 ml/m2 - LA ESV SP 4CH (MOD) 34.42 ml - LA ESV SP 2CH (MOD) 44.21 ml - LA ESV BP (MOD) 39.82 ml - LA ESV BP (MOD) index 25.05 ml/m2 - Aortic Valve Name Value Normal Range LVOT diameter 1.63 cm - Tricuspid Valve Name Value Normal Range TR Vmax 2.56 m/sec - TR peak gradient 26 mmHg - RAP 3 mmHg - RVSP 29 mmHg - IVC diameter 1.83 cm (1.2 - 2.3) Del[place] Cruz/IV: Voiding Method Incontinent IV Catheter Type [Forearm] Peripheral IV IV Catheter Type [Left Forearm INT / Saline Lock ] IV Catheter Type [Right INT / Saline Lock Antecubital] IV Catheter Type [Right Hand] INT / Saline Lock IV Catheter Type [Right Wrist] Peripheral IV IV Catheter Type [Left Wrist] Peripheral IV IV Catheter Type [Left Peripheral IV Antecubital] IV Catheter Type [Right INT / Saline Lock Forearm] IV Catheter Type [Left Hand] INT / Saline Lock Active Medications - Current Medications Current Medications: Generic Name Dose Route Start Last Admin Trade Name Freq PRN Reason Stop Dose Admin Acetaminophen 650 mg 12/06/19 10:25 03/21/20 10:28 Tylenol FEEDTUBE 650 mg Q6H PRN Administration TEMP >/=100.3 Acetylcysteine 200 mg 02/16/20 20:00 03/22/20 07:38 Mucomyst Inhalation INHALATION 200 mg Q12HRT LUCHO Administration Albuterol/Ipratropium 1 ampul 03/18/20 20:00 03/22/20 07:38 Duoneb *Not For Prn Use* IH 1 ampul Q6HRT LUCHO Administration Alprazolam 1 mg 02/21/20 18:24 03/22/20 10:00 Xanax PO 1 mg Q8H PRN Administration Anxiety Lipase/Protease/Amylase 1 each 11/23/19 11:[address] 10,500 Unit FEEDTUBE PRN PRN Use w/ sod bicarb for FT Bisacodyl 10 mg 02/06/20 13:57 Dulcolax PA QDAY PRN Constipation unrelieved by MOM Enoxaparin Sodium 40 mg 03/07/20 22:00 03/21/20 21:43 Enoxaparin SUB-Q 40 mg QDAY@2200 LUCHO Administration Glycopyrrolate 2 mg 12/31/19 20:00 03/22/20 09:55 Robinul PO 2 mg TID LUCHO Administration Haloperidol Lactate 5 mg 03/05/20 09:22 03/16/20 08:35 Haldol IM 5 mg Q6H PRN Administration Agitation Hydralazine HCl 10 mg 11/24/19 00:45 03/03/20 05:57 Apresoline IV 10 mg Q6H PRN Administration SBP > 160 Hydroxyzine Pamoate 25 mg 12/06/19 10:00 03/22/20 09:56 Vistaril PO 25 mg BID LUCHO Administration Lansoprazole 30 mg 11/27/19 10:00 03/22/20 09:54 Prevacid Solutab FEEDTUBE 30 mg QDAY LUCHO Administration Levetiracetam 500 mg 11/29/19 10:00 03/22/20 09:54 Keppra PO 500 mg BID LUCHO Administration Metoprolol Tartrate 12.5 mg 02/23/20 22:00 03/22/20 09:53 Metoprolol PO 12.5 mg BID LUCHO Administration Mirtazapine 30 mg 12/06/19 10:00 03/22/20 09:55 Remeron PO 30 mg DAILY LUCHO Administration Nicotine 21 mg 02/16/20 13:00 03/22/20 09:56 Habitrol TD 21 mg QDAY LUCHO Administration Ondansetron HCl 4 mg 12/10/19 07:53 02/25/20 02:51 Zofran IV 4 mg Q4H PRN Administration Nausea And Vomiting Polyethylene Glycol 17 gm 02/06/20 13:57 Miralax 3350 PO QDAY PRN Constipation Quetiapine Fumarate 100 mg 03/06/20 10:00 03/22/20 09:55 Seroquel FEEDTUBE 100 mg BID LUCHO Administration Scopolamine 1 each 02/08/20 15:00 03/21/20 10:29 Transderm-Scop TD 1 each Q3D LUCHO Administration Sertraline HCl 25 mg 01/01/20 10:00 03/22/20 09:54 Zoloft PO 25 mg QDAY LUCHO Administration Simple Syrup 15 ml 11/23/19 11:50 Simple Syrup FEEDTUBE PRN PRN Hypoglycemia BG<70 Simple Syrup 30 ml 11/23/19 11:50 Simple Syrup FEEDTUBE PRN PRN Hypoglycemia Sodium Bicarbonate 325 mg 11/23/19 11:50 Sodium Bicarbonate FEEDTUBE PRN PRN For Clogged Feeding Tube Nutrition/Malnutrition Assess - Dietary Evaluation Nutrition/Malnutrition Findings: Nutrition Notes Start: 11/23/19 11:29 Freq: Status: Active Protocol: Document 03/20/20 12:53 LM (Rec: 03/20/20 12:55 LM [email or web address]) Nutrition Notes Initial or Follow up Reassessment Current Diagnosis Hypertension Other Pertinent Diagnosis Cardaic arrest, ETOH dependence, UTI Current Diet Jevity 1.2 at 60ml/hr Labs/Tests Reviewed Pertinent Medications Reviewed Height 5 ft 6 in Weight 45.6 kg [place] Body Weight (kg) 59.09 BMI 16.2 Subjective/Other Information TF running at goal. Percent of energy/protein needs met: 100%/100% Burn Absent Trauma Absent GI Symptoms None Current % PO Negligible Interpretation of Weight Loss (severe) >2% in 1 week Muscle Mass Mild Depletion (non-severe) #2 Nutrition Diagnosis Malnutrition Diagnosis Progress(for reassessment Continues documentation) #1 Nutrition Diagnosis Inadequate oral intake Diagnosis Progress(for reassessment Continues documentation) Is patient on ventilator? No Is Patient Ambulatory and/or Out of Bed No REE-([facility]-confined to bed) 1286.028 Kcal/Kg value to use for calculation 38 Approximate Energy Requirements Using 1733 kcal/Kg Calculation Used for Recommendations Kcal/kg Additional Notes Protein: 60-75g (1.2-1.5g/kg) Fluid: 1 ml/kcal Nutrition Intervention Change Diet Order: Continue TF Nutrition Support: Jevity 1.2 at 60ml/hr Flush 100ml q4h Kcal 1,728 Protein (gm) 80 Fluid (mL) 1,162 Goal #1 TF tolerance Goal #2 Meet at least 80% of energy and protein needs via TF Goal #3 Wt gain/maintenacne Anticipated Discharge Needs: TF Follow-Up By: 03/27/20 Additional Comments F/u for TF tolerance
[2020-03-22] MEDS: ENOXAPARIN 40 MG/0.4 ML INJ SUB-Q SCH (21:14)
[2020-03-23] MEDS: IPRATROPIUM/ALBUTEROL SULFATE 3 ML AMPUL.NEB IH SCH ×5 (03:32→19:15)
[2020-03-23] MEDS: ACETYLCYSTEINE 20% 200 MG/1 ML *FOR INHALATION USE INHALATION SCH ×2 (07:27→19:16)
[2020-03-23] MEDS: HALOPERIDOL LACTATE 5 MG/1 ML INJ IM PRN ×2 (08:23→20:59)
[2020-03-23] MEDS: ALPRAZolam 1 MG TAB PO PRN ×2 (08:46→17:10)
[2020-03-23] MEDS: GLYCOPYRROLATE 1 MG TAB PO SCH ×3 (09:00→22:36)
--- NOTE | 2020-03-23 09:05 | Progress Note ---
Assessment and Plan Assessment and plan: 54-year-old female with a past medical history of Hypertension, Depression, Tobacco use Disorder, Alcohol use Disorder as confirmed by Daughter and pt's mother presents to the hospital status post cardiac arrest at home. EMS found pt in [facility]. They were unable to intubate patient with a ET tube because she was clenching down therefore Joe airway placed. Per the ED physician who evaluated pt, Patient presented with a pulse, intermittent respirations, and bagging support via Joe airway with O2 sat of 100%. Accu-Chek of 71 obtained by EMS. She was intubated in the ER and called for admission. Following admission patient was diagnosed with anoxic brain injury, sepsis with MRSA bacteremia and MSSA pneumonia, alcoholic liver disease. Family member initially wished for full code then changed to DNR, patient treated with IV antibiotics for sepsis, status post trach and PEG on 12/13/19. Weaned off from the vent and put on T- piece. Patient is uninsured, waiting for placement, guarded prognosis. 03/07: Returning to service no acute changes are noted. Continue current management while awaiting placement. Intermittent labs. Base of neck also around tracheostomy tube preventing downgrading. Continue appropriate wound care. 03/08: Plan of care unchanged continues on aerosol trach collar 28% of oxygen. Continue wound care management placement still pending status decision. 03/09: Continue current treatment plan. Continue aspiration precaution 03/10: Continue current management, Restraints as patient still pulling, awaiting placement 03/11: Continue supportive care, intermittent suctioning and pulmonary toilet. awaiting placement. 03/12: Continue supportive care, Give a bolus of fluids due to Hypercalcemia, Monitor Hyperkalemia with labs in am, No arrhythmia. Patient vomiting, concern for aspiration, Chest xray ordered and no active disease noted. Keep HOB >45% 03/13: No evidence of aspiration on xray. Continue supportive care. 03/14: Continue supportive care. Capping trials to start. Discussed with patients nursing and case management to continue daily PT by the Rehab team. 03/15: Discussed again with staff to start capping trial. 03/16: Do not see any indication the capping trial has started will discuss with respiratory therapist. Continue restraints. Still awaiting family decision patient has had some remarkable improvement considering the fact that she was able to stay around night without restraints. We will continue daily trial of this method. Discussed plan with nursing staff 03/17: Continue current care. Currently continue restraints. Continue current management. Continue physical therapy daily. 03/18: Capping trial successful and will possibly get decannulated today. Continue placement. 03/19: Now decannulated and doing well. Begin discharge planning. 03/20: Stable, no new complaints. 03/21: No new complaints. Continue supportive 03/22: No new complaints, still with some confusion, and agitation requiring restraints. Will require daily PT/OT and continue to work with Case management for placement 03/23: continue current management, daily PT/OT. stoma care. No new seizure, slow but gradual improvement noted daily / Anoxic brain injury: suspected CT head: No acute abnormality. EEG ordered showed Generalized slowing. No seizures or epileptiform activity. -Patient now opening her eyes, can speak and able to follow command -As needed haldol for agitation /Acute Respiratory failure -due to MSSA PNA -s/p intubation, s/p trach and PEG on 12/12 with mechanical ventilation, now on T-piece - CTA was done and negative for PE, - Echo quality is poor, showed diastolic dysfunction - continue weaning as tolerated -Continue appropriate and adequate tracheostomy care /Tracheostomy site ulceration -Continue appropriate wound management try to keep area dry. /Anemia, microcytic - Status post 3 units PRBC transfusion, H&H low stable /Acute metabolic encephalopathy/toxic encephalopathy due to the above - cont supportive care /Hyperammonemia - likely from liver disease related to EtOH abuse - Patient had elevated ammonia level and treated with lactulose /Metabolic Acidosis -Alcohol ketoacidosis vs hypoprofusion -Continue to monitor /ELevated LFTs, stable now - due to ischemic hepatitis. /Leucocytosis with sepsis - Source MRSA bacteremia and MSSA pneumonia. UA showed pyuria. RUQ US showed no ascites. - Repeat TTE negative for vegetation. Completed 7 days of Ceftriaxone on 11/29/2019. -Treated with Abx vancomycin 1 gm IV q 12 hour total 2 week till 12/30/2019 /Severe protein calorie malnutrition Dietitian consult to assist in management. /MSSA pneumonia: Status post vancomycin till 12/30/2019 /Alcohol use Disorder - given ongoing Alcohol use almost daily, s/p IV Thiamine - monitor /Severe hypokalemia -Repleted /Seizure disorder: treat with Keppra /H. Influenzae, tracheobronchitis, treated with abx /Moderate to severe fecal impaction - will add stool softner DNR CODE STATUS Disposition: prognosis guarded. Family okay for DNR, PT recommended subacute rehab, discharge pending on placement. Negative for COVID 19 History Interval history: Patient seen and examined, resting comfortable. No new complaints. still with confusion Hospitalist Physical - Physical exam Narrative exam: General appearance: Present: Appears older than stated age, restful - EENT Eyes: no scleral icterus, no conjunctival injection, pupil not reactive ENT: clear oral mucosa, dentition normal, no oropharyngeal erythema Ears: bilateral: normal - Neck Neck: stoma clena and dry - Respiratory Respiratory effort: other dressing over the stoma Respiratory: bilateral: rales - Cardiovascular Rhythm: regular Heart Sounds: Present: S1 & S2. Absent: gallop, rub Extremities: pulses intact, No edema, normal color - Gastrointestinal General gastrointestinal: Present: soft, non-tender, non-distended, normal bowel sounds - Integumentary Integumentary: clear, warm, dry - Musculoskeletal Musculoskeletal: No joint swelling or tenderness - Neurologic Neurologic: other (2+ reflexes throughout). respond to commend and nods head. generalized weakness, verbal - Psychiatric Psychiatric: co-operative - Constitutional Vitals: Temp Pulse Resp BP Pulse Ox 97.8 F 95 H 18 131/90 97 03/23/20 05:10 03/23/20 07:43 03/23/20 07:43 03/23/20 05:10 03/23/20 07:44 General appearance: Present: mild distress, cachectic, disheveled, other (Noncommunicative) HEART Score - HEART Score Troponin: Troponin T < 0.010 ng/mL (0.00-0.029) 11/22/19 23:27 Results - Labs CBC & Chem 7: 03/12/20 04:53 03/13/20 03:50 Labs: Laboratory Last Values WBC 9.1 K/mm3 (4.5-11.0) 03/12/20 04:53 RBC 3.90 M/mm3 (3.65-5.03) 03/12/20 04:53 Hgb 11.5 gm/dl (10.1-14.3) 03/12/20 04:53 Hct 34.2 % (30.3-42.9) 03/12/20 04:53 MCV 88 fl (79-97) 03/12/20 04:53 MCH 29 pg (28-32) 03/12/20 04:53 MCHC 34 % (30-34) 03/12/20 04:53 RDW 14.4 % (13.2-15.2) 03/12/20 04:53 Plt Count 625 K/mm3 (140-440) H 03/12/20 04:53 Lymph % (Auto) 27.8 % (13.4-35.0) 03/06/20 03:37 [place] % (Auto) 9.1 % (0.0-7.3) H 03/06/20 03:37 Eos % (Auto) 2.8 % (0.0-4.3) 03/06/20 03:37 Baso % (Auto) 0.7 % (0.0-1.8) 03/06/20 03:37 Lymph # 2.2 K/mm3 (1.2-5.4) 03/06/20 03:37 [place] # 0.7 K/mm3 (0.0-0.8) 03/06/20 03:37 Eos # 0.2 K/mm3 (0.0-0.4) 03/06/20 03:37 Baso # 0.1 K/mm3 (0.0-0.1) 03/06/20 03:37 Add Manual Diff Complete 12/25/19 03:47 Total Counted 200 12/25/19 03:47 Seg Neutrophils % 59.6 % (40.0-70.0) 03/06/20 03:37 Seg Neuts % (Manual) 97.5 % (40.0-70.0) H 12/25/19 03:47 Band Neutrophils % 0 % 12/25/19 03:47 Lymphocytes % (Manual) 1.0 % (13.4-35.0) L 12/25/19 03:47 Reactive Lymphs % (Man) 0 % 12/25/19 03:47 Monocytes % (Manual) 1.5 % (0.0-7.3) 12/25/19 03:47 Eosinophils % (Manual) 0 % (0.0-4.3) 12/25/19 03:47 Basophils % (Manual) 0 % (0.0-1.8) 12/25/19 03:47 Metamyelocytes % 0 % 12/25/19 03:47 Myelocytes % 0 % 12/25/19 03:47 Promyelocytes % 0 % 12/25/19 03:47 Blast Cells % 0 % 12/25/19 03:47 Nucleated RBC % Not Reportable 12/25/19 03:47 Seg Neutrophils # 4.8 K/mm3 (1.8-7.7) 03/06/20 03:37 Seg Neutrophils # Man 35.3 K/mm3 (1.8-7.7) H 12/25/19 03:47 Band Neutrophils # 0.0 K/mm3 12/25/19 03:47 Lymphocytes # (Manual) 0.4 K/mm3 (1.2-5.4) L 12/25/19 03:47 Abs React Lymphs (Man) 0.0 K/mm3 12/25/19 03:47 Monocytes # (Manual) 0.5 K/mm3 (0.0-0.8) 12/25/19 03:47 Eosinophils # (Manual) 0.0 K/mm3 (0.0-0.4) 12/25/19 03:47 Basophils # (Manual) 0.0 K/mm3 (0.0-0.1) 12/25/19 03:47 Metamyelocytes # 0.0 K/mm3 12/25/19 03:47 Myelocytes # 0.0 K/mm3 12/25/19 03:47 Promyelocytes # 0.0 K/mm3 12/25/19 03:47 Blast Cells # 0.0 K/mm3 12/25/19 03:47 Pathologist Review 12/13/19 07:48 WBC Morphology Not Reportable 12/25/19 03:47 Hypersegmented Neuts Not Reportable 12/25/19 03:47 Hyposegmented Neuts Not Reportable 12/25/19 03:47 Hypogranular Neuts Not Reportable 12/25/19 03:47 Smudge Cells Not Reportable 12/25/19 03:47 Toxic Granulation Not Reportable 12/25/19 03:47 Toxic Vacuolation Not Reportable 12/25/19 03:47 Dohle Bodies Not Reportable 12/25/19 03:47 Pelger-Huet Anomaly Not Reportable 12/25/19 03:47 Dominique Rods Not Reportable 12/25/19 03:47 Platelet Estimate Consistent w auto 12/25/19 03:47 Clumped Platelets Not Reportable 12/25/19 03:47 Plt Clumps, EDTA Not Reportable 12/25/19 03:47 Large Platelets Not Reportable 12/25/19 03:47 Giant Platelets Not Reportable 12/25/19 03:47 Platelet Satelliting Not Reportable 12/25/19 03:47 Plt Morphology Comment Not Reportable 12/25/19 03:47 RBC Morphology Not Reportable 12/25/19 03:47 Dimorphic RBCs Not Reportable 12/25/19 03:47 Polychromasia Not Reportable 12/25/19 03:47 Hypochromasia Not Reportable 12/25/19 03:47 Poikilocytosis Not Reportable 12/25/19 03:47 Anisocytosis 1+ 12/25/19 03:47 Microcytosis Not Reportable 12/25/19 03:47 Macrocytosis Not Reportable 12/25/19 03:47 Spherocytes Not Reportable 12/25/19 03:47 Pappenheimer Bodies Not Reportable 12/25/19 03:47 Sickle Cells Not Reportable 12/25/19 03:47 Target Cells Not Reportable 12/25/19 03:47 Tear Drop Cells Not Reportable 12/25/19 03:47 Ovalocytes Not Reportable 12/25/19 03:47 Helmet Cells Not Reportable 12/25/19 03:47 [place] Bodies Not Reportable 12/25/19 03:47 [place] Rings Not Reportable 12/25/19 03:47 [place] Cells Not Reportable 12/25/19 03:47 Bite Cells Not Reportable 12/25/19 03:47 Crenated Cell Not Reportable 12/25/19 03:47 Elliptocytes Not Reportable 12/25/19 03:47 Acanthocytes (Spur) Not Reportable 12/25/19 03:47 Rouleaux Not Reportable 12/25/19 03:47 Hemoglobin C Crystals Not Reportable 12/25/19 03:47 Schistocytes Not Reportable 12/25/19 03:47 Malaria parasites Not Reportable 12/25/19 03:47 [place] Bodies Not Reportable 12/25/19 03:47 Hem Pathologist Commnt No 12/25/19 03:47 PT 17.0 Sec. (12.2-14.9) H 11/23/19 03:47 INR 1.36 (0.87-1.13) H 11/23/19 03:47 APTT 128.2 Sec. (24.2-36.6) H* 11/23/19 03:47 Heparin Anti-Xa Level 0.31 U.I./ml (0.3-0.7) 11/23/19 09:03 ABG pH 7.433 pH Units (7.350-7.450) 03/08/20 13:25 ABG pCO2 40.2 mm Hg 03/08/20 13:25 ABG pO2 71.1 mm Hg (80.0-90.0) L 03/08/20 13:25 ABG HCO3 26.2 mmol/L (20.0-26.0) H 03/08/20 13:25 ABG O2 Saturation 97.0 % (95.0-99.0) 03/08/20 13:25 ABG O2 Content 11.0 (0.0-44) 03/08/20 13:25 ABG Base Excess 1.8 mmol/L (-2.0-3.0) 03/08/20 13:25 ABG Hemoglobin 8.2 gm/dl (12.0-16.0) L 03/08/20 13:25 ABG Carboxyhemoglobin 1.7 % (0.0-5.0) 03/08/20 13:25 ABG Methemoglobin 0.5 % (0.0-1.5) 03/08/20 13:25 Oxyhemoglobin 94.8 % (95.0-99.0) L 03/08/20 13:25 FiO2 21 % 03/08/20 13:25 Sodium 137 mmol/L (137-145) 03/13/20 03:50 Potassium 3.8 mmol/L (3.6-5.0) D 03/13/20 03:50 Chloride 103.1 mmol/L (98-107) 03/13/20 03:50 Carbon Dioxide 20 mmol/L (22-30) L 03/13/20 03:50 Anion Gap 18 mmol/L 03/13/20 03:50 BUN 30 mg/dL (7-17) H 03/13/20 03:50 Creatinine 0.6 mg/dL (0.7-1.2) L 03/13/20 03:50 Estimated GFR > 60 ml/min 03/13/20 03:50 BUN/Creatinine Ratio 50 % 03/13/20 03:50 Glucose 153 mg/dL (65-100) H 03/13/20 03:50 POC Glucose 153 (70-105) H 03/23/20 01:00 Lactic Acid 1.80 mmol/L (0.7-2.0) 11/25/19 05:05 Calcium 10.0 mg/dL (8.4-10.2) 03/13/20 03:50 Ionized Calcium 4.5 mg/dL (4.8-5.6) L 11/23/19 06:32 Phosphorus 4.20 mg/dL (2.5-4.5) D 11/28/19 08:59 Magnesium 1.90 mg/dL (1.7-2.3) 02/28/20 03:40 Total Bilirubin 0.40 mg/dL (0.1-1.2) 12/13/19 07:48 AST 27 units/L (5-40) 12/13/19 07:48 ALT 26 units/L (7-56) 12/13/19 07:48 Alkaline Phosphatase 316 units/L (35-129) H 12/13/19 07:48 Ammonia 42.0 umol/L (25-60) 11/29/19 13:41 Total Creatine Kinase 139 units/L (30-135) H 11/22/19 23:27 CK-MB (CK-2) 8.3 ng/mL (0.0-4.0) H 11/22/19 23:27 CK-MB (CK-2) Rel Index 5.9 (0-4) H 11/22/19 23:27 Troponin T < 0.010 ng/mL (0.00-0.029) 11/22/19 23:27 Total Protein 6.8 g/dL (6.3-8.2) 12/13/19 07:48 Albumin 2.4 g/dL (3.9-5) L 12/13/19 07:48 Albumin/Globulin Ratio 0.5 % 12/13/19 07:48 Lipase 18 units/L (13-60) 11/23/19 00:34 Procalcitonin 1.09 ng/mL (<0.15) 11/23/19 04:53 TSH 1.010 mlU/mL (0.270-4.200) 02/12/20 07:36 Free T4 1.08 ng/dL (0.76-1.46) 02/12/20 07:36 Urine Color Yellow (Yellow) 12/16/19 Unknown Urine Turbidity Slightly-cloudy (Clear) 12/16/19 Unknown Urine pH 5.0 (5.0-7.0) 12/16/19 Unknown Ur Specific [place] 1.018 (1.003-1.030) 12/16/19 Unknown Urine Protein 30 mg/dl mg/dL (Negative) 12/16/19 Unknown Urine Glucose (UA) Neg mg/dL (Negative) 12/16/19 Unknown Urine Ketones Neg mg/dL (Negative) 12/16/19 Unknown Urine Blood Sm (Negative) 12/16/19 Unknown Urine Nitrite Neg (Negative) 12/16/19 Unknown Urine Bilirubin Neg (Negative) 12/16/19 Unknown Urine Urobilinogen < 2.0 mg/dL (<2.0) 12/16/19 Unknown Ur Leukocyte Esterase Neg (Negative) 12/16/19 Unknown Urine WBC (Auto) 6.0 /HPF (0.0-6.0) 12/16/19 Unknown Urine RBC (Auto) 9.0 /HPF (0.0-6.0) 12/16/19 Unknown U Epithel Cells (Auto) < 1.0 /HPF (0-13.0) 12/16/19 Unknown Urine Bacteria (Auto) 2+ /HPF (Negative) 11/22/19 23:17 Hyaline Casts 3 /LPF 12/16/19 Unknown Granular Casts 3 /LPF 12/16/19 Unknown Urine Mucus Few /HPF 12/16/19 Unknown Vancomycin Trough 33.8 ug/mL (5.0-20.0) H 12/21/19 08:56 Random Vancomycin 16.2 ug/mL (0-40.0) 12/24/19 04:31 Salicylates < 0.3 mg/dL (2.8-20.0) L 11/22/19 23:27 Urine Opiates Screen Presumptive negative 11/22/19 23:17 Urine Methadone Screen Presumptive negative 11/22/19 23:17 Acetaminophen < 5.0 ug/mL (10.0-30.0) L 11/22/19 23:27 Ur Barbiturates Screen Presumptive negative 11/22/19 23:17 Ur Phencyclidine Scrn Presumptive negative 11/22/19 23:17 Ur Amphetamines Screen Presumptive negative 11/22/19 23:17 U Benzodiazepines Scrn Presumptive negative 11/22/19 23:17 Urine Cocaine Screen Presumptive negative 11/22/19 23:17 U Marijuana (THC) Screen Presumptive negative 11/22/19 23:17 Drugs of Abuse Note Disclamer 11/22/19 23:17 Plasma/Serum Alcohol 0.08 % (0-0.07) H 11/22/19 23:27 Coronavirus (PCR) Negative (Negative) 02/05/20 07:50 Hepatitis A IgM Ab Non-reactive (NonReactive) 11/23/19 01:19 Hep Bs Antigen Non-reactive (Negative) 11/23/19 01:19 Hep B Core IgM Ab Non-reactive (NonReactive) 11/23/19 01:19 Hepatitis C Antibody Non-reactive (NonReactive) 11/23/19 01:19 Blood Type O POSITIVE 12/21/19 14:54 Antibody Screen Negative 12/21/19 14:54 Crossmatch See Detail 12/21/19 14:54 - Diagnostic Impressions Diagnostic Impressions: Echocardiogram 11/23/19 03:58 Transthoracic Echocardiogram Indication: Cardiac arrest BP: 131/89 HR: 115 Conclusions *The study quality is technically difficult. *Global left ventricular wall motion and contractility are within normal limits. *The estimated ejection fraction is 55-60%. *Abnormal left ventricular diastolic filling is observed, consistent with impaired relaxation. *There is no pericardial effusion. Findings Procedure Info: The study quality is technically difficult. The study was technically limited due to the patient's inability to lay in the left lateral decubitus position. Left Ventricle: The left ventricular chamber size is normal. There is no left ventricular hypertrophy. Global left ventricular wall motion and contractility are within normal limits. Global left ventricular systolic function is normal. The estimated ejection fraction is 55-60%. Abnormal left ventricular diastolic filling is observed, consistent with impaired relaxation. Left Atrium: The left atrial chamber size is normal. Aortic Valve: The aortic valve leaflets are mildly thickened. Mitral Valve: The mitral valve leaflets are mildly thickened. There is no evidence of mitral regurgitation. Tricuspid Valve: The tricuspid valve leaflets are normal. There is trace tricuspid regurgitation. The right ventricular systolic pressure is calculated at 33 mmHg. Pulmonic Valve: The pulmonic valve appears normal. Pericardium: The pericardium appears normal. There is no pericardial effusion. Aorta: The aorta appears normal. Venous: The inferior vena cava appears normal in size. Measurements Chambers 2D Name Value Normal Range IVSd (2D) 0.94 cm (0.6 - 1.1) LVPWd (2D) 0.81 cm (0.6 - 1.1) LVIDd (2D) 3.6 cm (3.7 - 5.6) LVIDs (2D) 2.27 cm (2 - 3.8) LV FS (2D) 36.93 % - EF Teichholz (2D) 67.76 % - Ao root diameter (2D) 3.03 cm (2 - 3.7) Volumes/Mass Name Value Normal Range LA ESV SP 4CH (A/L) 16.89 ml - LA ESV SP 4CH (MOD) 15.52 ml - Diastolic/Systolic Function Name Value Normal Range MV E-wave Vmax 0.55 m/sec - MV deceleration time 200.89 msec - MV A-wave Vmax 0.68 m/sec - MV E:A ratio 0.82 ratio - Aortic Valve Name Value Normal Range AV Vmax 1.1 m/sec - AV VTI 15.9 cm - AV peak gradient 4.86 mmHg - AV mean gradient 2.59 mmHg - LVOT diameter 2 cm - LVOT Vmax 1.03 m/sec - LVOT VTI 15.87 cm - LVOT peak gradient 4.24 mmHg - LVOT mean gradient 2.41 mmHg - SV LVOT 49.77 ml - JOSÉ MIGUEL (continuity Vmax) 2.93 cm2 - JOSÉ MIGUEL (continuity VTI) 3.13 cm2 - Tricuspid Valve Name Value Normal Range TR Vmax 2.74 m/sec - TR peak gradient 303 mmHg - RAP 3 mmHg - RVSP 33 mmHg - IVC diameter 1.77 cm (1.2 - 2.3) Pulmonic Valve/Qp:Qs Name Value Normal Range PV Vmax 0.77 m/sec - PV peak gradient 2.4 mmHg - PV acceleration time 114.18 msec - Echocardiogram Limited Views 12/17/19 14:53 Transthoracic Echocardiogram Indication: R/O Vegetations BP: 144/83 HR: 133 Conclusions *Global left ventricular systolic function is mildly decreased. *The estimated ejection fraction is 45-50%. *A trivial pericardial effusion is visualized. Findings Left Ventricle: The left ventricular chamber size is normal. Global left ventricular systolic function is mildly decreased. The estimated ejection fraction is 45-50%. Left Atrium: The left atrial chamber size is normal. Right Ventricle: The right ventricular cavity size is normal. Right Atrium: The right atrial cavity size is normal. Aortic Valve: The aortic valve is not well visualized. There is no evidence of aortic regurgitation. Mitral Valve: The mitral valve leaflets are mildly thickened. There is trace of mitral regurgitation. Tricuspid Valve: The tricuspid valve leaflets are mildly thickened. There is trace tricuspid regurgitation. The right ventricular systolic pressure is calculated at 29 mmHg. Pulmonic Valve: The pulmonic valve is not well visualized. There is no evidence of pulmonic regurgitation. Pericardium: A trivial pericardial effusion is visualized. Aorta: There is no dilatation of the ascending aorta. There is no dilatation of the aortic root. Venous: The inferior vena cava appears normal in size. There is a greater than 50% respiratory change in the inferior vena cava dimension. Measurements Chambers 2D Name Value Normal Range IVSd (2D) 0.83 cm (0.6 - 1.1) LVPWd (2D) 0.98 cm (0.6 - 1.1) LVIDd (2D) 3.71 cm (3.7 - 5.6) LVIDs (2D) 2.93 cm (2 - 3.8) LV FS (2D) 21.12 % - EF Teichholz (2D) 43.71 % - Ao root diameter (2D) 3.02 cm (2 - 3.7) Volumes/Mass Name Value Normal Range LA ESV SP 4CH (A/L) 36.8 ml - LA ESV SP 2CH (A/L) 45.89 ml - LA ESV BP (A/L) 42.35 ml - LA ESV BP (A/L) index 26.63 ml/m2 - LA ESV SP 4CH (MOD) 34.42 ml - LA ESV SP 2CH (MOD) 44.21 ml - LA ESV BP (MOD) 39.82 ml - LA ESV BP (MOD) index 25.05 ml/m2 - Aortic Valve Name Value Normal Range LVOT diameter 1.63 cm - Tricuspid Valve Name Value Normal Range TR Vmax 2.56 m/sec - TR peak gradient 26 mmHg - RAP 3 mmHg - RVSP 29 mmHg - IVC diameter 1.83 cm (1.2 - 2.3) [place]/IV: Voiding Method Incontinent IV Catheter Type [Forearm] Peripheral IV IV Catheter Type [Left Forearm INT / Saline Lock ] IV Catheter Type [Right INT / Saline Lock Antecubital] IV Catheter Type [Right Hand] INT / Saline Lock IV Catheter Type [Right Wrist] Peripheral IV IV Catheter Type [Left Wrist] Peripheral IV IV Catheter Type [Left Peripheral IV Antecubital] IV Catheter Type [Right INT / Saline Lock Forearm] IV Catheter Type [Left Hand] INT / Saline Lock Active Medications - Current Medications Current Medications: Generic Name Dose Route Start Last Admin Trade Name Freq PRN Reason Stop Dose Admin Acetaminophen 650 mg 12/06/19 10:25 03/21/20 10:28 Tylenol FEEDTUBE 650 mg Q6H PRN Administration TEMP >/=100.3 Acetylcysteine 200 mg 02/16/20 20:00 03/23/20 07:27 Mucomyst Inhalation INHALATION 200 mg Q12HRT LUCHO Administration Albuterol/Ipratropium 1 ampul 03/18/20 20:00 03/23/20 07:27 Duoneb *Not For Prn Use* IH 1 ampul Q6HRT LUCHO Administration Alprazolam 1 mg 02/21/20 18:24 03/23/20 08:46 Xanax PO 1 mg Q8H PRN Administration Anxiety Lipase/Protease/Amylase 1 each 11/23/19 11:50 Pancreaze 10,500 Unit FEEDTUBE PRN PRN Use w/ sod bicarb for FT Bisacodyl 10 mg 02/06/20 13:57 Dulcolax RI QDAY PRN Constipation unrelieved by MOM Enoxaparin Sodium 40 mg 03/07/20 22:00 03/22/20 21:14 Enoxaparin SUB-Q 40 mg QDAY@2200 LUCHO Administration Glycopyrrolate 2 mg 12/31/19 20:00 03/22/20 21:14 Robinul PO 2 mg TID LUCHO Administration Haloperidol Lactate 5 mg 03/05/20 09:22 03/23/20 08:23 Haldol IM 5 mg Q6H PRN Administration Agitation Hydralazine HCl 10 mg 11/24/19 00:45 03/03/20 05:57 Apresoline IV 10 mg Q6H PRN Administration SBP > 160 Hydroxyzine Pamoate 25 mg 12/06/19 10:00 03/22/20 21:14 Vistaril PO 25 mg BID LUCHO Administration Lansoprazole 30 mg 11/27/19 10:00 03/22/20 09:54 Prevacid Solutab FEEDTUBE 30 mg QDAY LUCHO Administration Levetiracetam 500 mg 11/29/19 10:00 03/22/20 21:15 Keppra PO 500 mg BID LUCHO Administration Metoprolol Tartrate 12.5 mg 02/23/20 22:00 03/22/20 21:14 Metoprolol PO 12.5 mg BID LUCHO Administration Mirtazapine 30 mg 12/06/19 10:00 03/22/20 09:55 Remeron PO 30 mg DAILY LUCHO Administration Nicotine 21 mg 02/16/20 13:00 03/22/20 09:56 Habitrol TD 21 mg QDAY LUCHO Administration Ondansetron HCl 4 mg 12/10/19 07:53 02/25/20 02:51 Zofran IV 4 mg Q4H PRN Administration Nausea And Vomiting Polyethylene Glycol 17 gm 02/06/20 13:57 Miralax 3350 PO QDAY PRN Constipation Quetiapine Fumarate 100 mg 03/06/20 10:00 03/22/20 21:15 Seroquel FEEDTUBE 100 mg BID LUCHO Administration Scopolamine 1 each 02/08/20 15:00 03/21/20 10:29 Transderm-Scop TD 1 each Q3D LUCHO Administration Sertraline HCl 25 mg 01/01/20 10:00 03/22/20 09:54 Zoloft PO 25 mg QDAY LUCHO Administration Simple Syrup 15 ml 11/23/19 11:50 Simple Syrup FEEDTUBE PRN PRN Hypoglycemia BG<70 Simple Syrup 30 ml 11/23/19 11:50 Simple Syrup FEEDTUBE PRN PRN Hypoglycemia Sodium Bicarbonate 325 mg 11/23/19 11:50 Sodium Bicarbonate FEEDTUBE PRN PRN For Clogged Feeding Tube Nutrition/Malnutrition Assess - Dietary Evaluation Nutrition/Malnutrition Findings: Nutrition Notes Start: 11/23/19 11:29 Freq: Status: Active Protocol: Document 03/20/20 12:53 LM (Rec: 03/20/20 12:55 LM [email or web address]) Nutrition Notes Initial or Follow up Reassessment Current Diagnosis Hypertension Other Pertinent Diagnosis Cardaic arrest, ETOH dependence, UTI Current Diet Jevity 1.2 at 60ml/hr Labs/Tests Reviewed Pertinent Medications Reviewed Height 5 ft 6 in Weight 45.6 kg [place] Body Weight (kg) 59.09 BMI 16.2 Subjective/Other Information TF running at goal. Percent of energy/protein needs met: 100%/100% Burn Absent Trauma Absent GI Symptoms None Current % PO Negligible Interpretation of Weight Loss (severe) >2% in 1 week Muscle Mass Mild Depletion (non-severe) #2 Nutrition Diagnosis Malnutrition Diagnosis Progress(for reassessment Continues documentation) #1 Nutrition Diagnosis Inadequate oral intake Diagnosis Progress(for reassessment Continues documentation) Is patient on ventilator? No Is Patient Ambulatory and/or Out of Bed No REE-([facility]-confined to bed) 1286.028 Kcal/Kg value to use for calculation 38 Approximate Energy Requirements Using 1733 kcal/Kg Calculation Used for Recommendations Kcal/kg Additional Notes Protein: 60-75g (1.2-1.5g/kg) Fluid: 1 ml/kcal Nutrition Intervention Change Diet Order: Continue TF Nutrition Support: Jevity 1.2 at 60ml/hr Flush 100ml q4h Kcal 1,728 Protein (gm) 80 Fluid (mL) 1,162 Goal #1 TF tolerance Goal #2 Meet at least 80% of energy and protein needs via TF Goal #3 Wt gain/maintenacne Anticipated Discharge Needs: TF Follow-Up By: 03/27/20 Additional Comments F/u for TF tolerance
[2020-03-23] MEDS: NICOTINE 21 MG/24 HR PATCH TD SCH (09:09)
[2020-03-23] MEDS: SERTRALINE 50 MG TAB PO SCH (09:09)
[2020-03-23] MEDS: hydrOXYzine PAMOATE 25 MG CAP PO SCH ×2 (09:10→22:36)
[2020-03-23] MEDS: levETIRAcetam 500 MG/5 ML ORAL LIQD PO SCH ×2 (09:10→22:37)
[2020-03-23] MEDS: MIRTAZAPINE 30 MG TAB PO SCH (09:10)
[2020-03-23] MEDS: METOPROLOL TARTRATE 25 MG TAB PO SCH ×2 (09:11→22:37)
[2020-03-23] MEDS: QUEtiapine 100 MG TAB FEEDTUBE SCH ×2 (09:12→22:36)
[2020-03-23] MEDS: LANSOPRAZOLE 30 MG SOLUTAB FEEDTUBE SCH (09:19)
--- NOTE | 2020-03-23 21:08 | Progress Note ---
Assessment and Plan Patient Decanulated. Patient placed on 2 litres O2 via nasal canula. O2 saturation 100%. Patient awake. No acute respiratory distress. Recommend physical therapy.. - Patient Problems (1) Acute respiratory failure Current Visit: Yes Status: Acute Qualifiers: Respiratory failure complication: hypoxia Qualified Code(s): J96.01 - Acute respiratory failure with hypoxia Plan to address problem: Patient decanulated and on 2 litres O2. O2 saturation 100%. Aspiration precautions. Continue albuterol/atrovent aerosol treatments q 6 hours. (2) Alcohol abuse Current Visit: Yes Status: Acute Plan to address problem: Management as per primary care. (3) Cardiac arrest with successful resuscitation Current Visit: Yes Status: Acute Plan to address problem: Patient successfully resucitated. S/P tracheostomy, Decanulated.Resting On O2 2 litres. O2 saturation 100%. (4) Increased ammonia level Current Visit: Yes Status: Acute Plan to address problem: Management as per primary care. (5) Seizure disorder Current Visit: Yes Status: Acute Plan to address problem: Management as per primary care and neurology. (6) HTN (hypertension) Current Visit: No Status: Acute Plan to address problem: Management as per primary care. Subjective Date of service: 03/23/20 Principal diagnosis: Ac cardiopulmonary arrest; Ac hypoxemic resp failure; Acute encephalopathy Interval history: Patient Decanulated. Patient placed on 2 litres O2 via nasal canula. O2 saturation 100%. Patient awake. No acute respiratory distress. Recommend physical therapy. Objective Vital Signs - 12hr 03/23/20 03/23/20 03/23/20 09:11 10:00 11:56 Temperature 97.5 F L Pulse Rate 82 90 Pulse Rate [ Anterior Bilateral Throughout] Respiratory 18 18 Rate Respiratory Rate [Anterior Bilateral Throughout] Blood Pressure 128/82 126/81 O2 Sat by Pulse 99 Oximetry 03/23/20 03/23/20 03/23/20 13:18 16:02 18:16 Temperature 98.0 F Pulse Rate 106 H Pulse Rate [ 88 106 H Anterior Bilateral Throughout] Respiratory 18 Rate Respiratory 16 18 Rate [Anterior Bilateral Throughout] Blood Pressure 141/100 O2 Sat by Pulse 99 99 Oximetry 03/23/20 19:17 Temperature 98.0 F Pulse Rate Pulse Rate [ Anterior Bilateral Throughout] Respiratory 20 Rate Respiratory Rate [Anterior Bilateral Throughout] Blood Pressure 133/88 O2 Sat by Pulse Oximetry Constitutional: no acute distress, alert Eyes: non-icteric ENT: oropharynx moist, other (Patient decannulated.) Neck: supple, no lymphadenopathy, no JVD Effort: normal Ascultation: Bilateral: diminished breath sounds, rhonchi Percussion: Bilateral: not dull Cardiovascular: regular rate and rhythm (tachycardia), other (S1,S2) Gastrointestinal: normoactive bowel sounds, soft, non-tender, non-distended Integumentary: normal Extremities: no cyanosis, no edema, pulses normal, no ischemia or petechiae Neurologic: non-focal exam, pupils equal and round, CN II-XII normal Psychiatric: affect normal CBC and BMP: 03/12/20 04:53 03/13/20 03:50 ABG, PT/INR, D-dimer: ABG ABG pH 7.433 pH Units (7.350-7.450) 03/08/20 13:25 ABG pCO2 40.2 mm Hg 03/08/20 13:25 ABG pO2 71.1 mm Hg (80.0-90.0) L 03/08/20 13:25 ABG O2 Saturation 97.0 % (95.0-99.0) 03/08/20 13:25 PT/INR, D-dimer PT 17.0 Sec. (12.2-14.9) H 11/23/19 03:47 INR 1.36 (0.87-1.13) H 11/23/19 03:47 Abnormal lab findings: Abnormal Labs 11/22/19 11/22/19 11/22/19 23:17 23:18 23:27 WBC 21.2 H RBC 3.59 L Hgb 9.8 L Hct MCH 27 L RDW 18.6 H Plt Count 454 H Lymph % (Auto) [place] % (Auto) [place] # Baso # Seg Neutrophils % Seg Neuts % (Manual) 86.0 H Lymphocytes % (Manual) 9.0 L Monocytes % (Manual) Seg Neutrophils # Seg Neutrophils # Man 18.2 H Lymphocytes # (Manual) Monocytes # (Manual) 1.1 H Eosinophils # (Manual) Basophils # (Manual) PT INR APTT ABG pH ABG pO2 ABG HCO3 ABG O2 Saturation ABG Base Excess ABG Hemoglobin Oxyhemoglobin Sodium Potassium Chloride Carbon Dioxide BUN Creatinine Glucose POC Glucose 53 L Lactic Acid Calcium Ionized Calcium Phosphorus Magnesium Total Bilirubin AST ALT Alkaline Phosphatase Ammonia Total Creatine Kinase CK-MB (CK-2) CK-MB (CK-2) Rel Index Total Protein Albumin Urine WBC (Auto) 40.0 H Vancomycin Trough Salicylates Acetaminophen Plasma/Serum Alcohol Crossmatch 11/22/19 11/22/19 11/22/19 23:27 23:27 23:27 WBC RBC Hgb Hct MCH RDW Plt Count Lymph % (Auto) [place] % (Auto) [place] # Baso # Seg Neutrophils % Seg Neuts % (Manual) Lymphocytes % (Manual) Monocytes % (Manual) Seg Neutrophils # Seg Neutrophils # Man Lymphocytes # (Manual) Monocytes # (Manual) Eosinophils # (Manual) Basophils # (Manual) PT INR APTT ABG pH ABG pO2 ABG HCO3 ABG O2 Saturation ABG Base Excess ABG Hemoglobin Oxyhemoglobin Sodium Potassium 2.4 L* Chloride 85.1 L Carbon Dioxide 19 L BUN Creatinine 0.5 L Glucose 261 H POC Glucose Lactic Acid Calcium Ionized Calcium Phosphorus Magnesium Total Bilirubin AST 609 H ALT 152 H Alkaline Phosphatase 160 H Ammonia 117.0 H Total Creatine Kinase 139 H CK-MB (CK-2) 8.3 H CK-MB (CK-2) Rel Index 5.9 H Total Protein Albumin 3.6 L Urine WBC (Auto) Vancomycin Trough Salicylates < 0.3 L Acetaminophen Plasma/Serum Alcohol Crossmatch 11/22/19 11/22/19 11/23/19 23:27 23:27 01:10 WBC RBC Hgb Hct MCH RDW Plt Count Lymph % (Auto) [place] % (Auto) [place] # Baso # Seg Neutrophils % Seg Neuts % (Manual) Lymphocytes % (Manual) Monocytes % (Manual) Seg Neutrophils # Seg Neutrophils # Man Lymphocytes # (Manual) Monocytes # (Manual) Eosinophils # (Manual) Basophils # (Manual) PT INR APTT ABG pH 7.273 L ABG pO2 209.7 H ABG HCO3 ABG O2 Saturation 99.2 H ABG Base Excess -3.9 L ABG Hemoglobin 10.6 L Oxyhemoglobin 93.9 L Sodium Potassium Chloride Carbon Dioxide BUN Creatinine Glucose POC Glucose Lactic Acid Calcium Ionized Calcium Phosphorus Magnesium Total Bilirubin AST ALT Alkaline Phosphatase Ammonia Total Creatine Kinase CK-MB (CK-2) CK-MB (CK-2) Rel Index Total Protein Albumin Urine WBC (Auto) Vancomycin Trough Salicylates Acetaminophen < 5.0 L Plasma/Serum Alcohol 0.08 H Crossmatch 11/23/19 11/23/19 11/23/19 01:19 01:19 03:47 WBC RBC Hgb Hct MCH RDW Plt Count Lymph % (Auto) [place] % (Auto) [place] # Baso # Seg Neutrophils % Seg Neuts % (Manual) Lymphocytes % (Manual) Monocytes % (Manual) Seg Neutrophils # Seg Neutrophils # Man Lymphocytes # (Manual) Monocytes # (Manual) Eosinophils # (Manual) Basophils # (Manual) PT 16.3 H INR 1.29 H APTT ABG pH ABG pO2 ABG HCO3 ABG O2 Saturation ABG Base Excess ABG Hemoglobin Oxyhemoglobin Sodium Potassium Chloride Carbon Dioxide BUN Creatinine Glucose POC Glucose Lactic Acid 2.10 H* 5.00 H* Calcium Ionized Calcium Phosphorus Magnesium Total Bilirubin AST ALT Alkaline Phosphatase Ammonia Total Creatine Kinase CK-MB (CK-2) CK-MB (CK-2) Rel Index Total Protein Albumin Urine WBC (Auto) Vancomycin Trough Salicylates Acetaminophen Plasma/Serum Alcohol Crossmatch 11/23/19 11/23/19 11/23/19 03:47 03:47 04:53 WBC RBC Hgb 9.4 L Hct MCH RDW Plt Count Lymph % (Auto) [place] % (Auto) [place] # Baso # Seg Neutrophils % Seg Neuts % (Manual) Lymphocytes % (Manual) Monocytes % (Manual) Seg Neutrophils # Seg Neutrophils # Man Lymphocytes # (Manual) Monocytes # (Manual) Eosinophils # (Manual) Basophils # (Manual) PT 17.0 H INR 1.36 H APTT 128.2 H* ABG pH ABG pO2 ABG HCO3 ABG O2 Saturation ABG Base Excess ABG Hemoglobin Oxyhemoglobin Sodium Potassium Chloride Carbon Dioxide 18 L BUN Creatinine 0.5 L Glucose 105 H POC Glucose Lactic Acid Calcium 8.3 L Ionized Calcium Phosphorus 2.40 L Magnesium Total Bilirubin 1.30 H AST 761 H ALT 158 H Alkaline Phosphatase 143 H Ammonia Total Creatine Kinase CK-MB (CK-2) CK-MB (CK-2) Rel Index Total Protein Albumin 2.8 L Urine WBC (Auto) Vancomycin Trough Salicylates Acetaminophen Plasma/Serum Alcohol Crossmatch 11/23/19 11/23/19 11/23/19 05:12 06:32 06:32 WBC 16.8 H RBC 3.31 L Hgb 8.9 L Hct 28.7 L MCH 27 L RDW 18.6 H Plt Count Lymph % (Auto) [place] % (Auto) [place] # Baso # Seg Neutrophils % Seg Neuts % (Manual) 94.0 H Lymphocytes % (Manual) 1.0 L Monocytes % (Manual) Seg Neutrophils # Seg Neutrophils # Man 15.8 H Lymphocytes # (Manual) 0.2 L Monocytes # (Manual) Eosinophils # (Manual) Basophils # (Manual) PT INR APTT ABG pH ABG pO2 ABG HCO3 ABG O2 Saturation ABG Base Excess -3.2 L ABG Hemoglobin 9.0 L Oxyhemoglobin 93.6 L Sodium Potassium Chloride Carbon Dioxide BUN Creatinine Glucose POC Glucose Lactic Acid Calcium Ionized Calcium 4.5 L Phosphorus Magnesium Total Bilirubin AST ALT Alkaline Phosphatase Ammonia Total Creatine Kinase CK-MB (CK-2) CK-MB (CK-2) Rel Index Total Protein Albumin Urine WBC (Auto) Vancomycin Trough Salicylates Acetaminophen Plasma/Serum Alcohol Crossmatch 11/23/19 11/24/19 11/24/19 06:32 04:35 04:35 WBC RBC Hgb Hct MCH RDW Plt Count Lymph % (Auto) [place] % (Auto) [place] # Baso # Seg Neutrophils % Seg Neuts % (Manual) Lymphocytes % (Manual) Monocytes % (Manual) Seg Neutrophils # Seg Neutrophils # Man Lymphocytes # (Manual) Monocytes # (Manual) Eosinophils # (Manual) Basophils # (Manual) PT INR APTT ABG pH ABG pO2 ABG HCO3 ABG O2 Saturation ABG Base Excess ABG Hemoglobin Oxyhemoglobin Sodium Potassium Chloride Carbon Dioxide BUN Creatinine Glucose POC Glucose Lactic Acid 3.30 H* Calcium Ionized Calcium Phosphorus Magnesium 1.40 L Total Bilirubin AST ALT Alkaline Phosphatase Ammonia 98.0 H Total Creatine Kinase CK-MB (CK-2) CK-MB (CK-2) Rel Index Total Protein Albumin Urine WBC (Auto) Vancomycin Trough Salicylates Acetaminophen Plasma/Serum Alcohol Crossmatch 11/24/19 11/25/19 11/25/19 05:22 04:34 05:05 WBC 17.3 H RBC 2.88 L Hgb 7.8 L Hct 24.6 L MCH 27 L RDW 18.5 H Plt Count Lymph % (Auto) 7.7 L [place] % (Auto) 9.7 H [place] # 1.7 H Baso # Seg Neutrophils % 82.2 H Seg Neuts % (Manual) Lymphocytes % (Manual) Monocytes % (Manual) Seg Neutrophils # 14.2 H Seg Neutrophils # Man Lymphocytes # (Manual) Monocytes # (Manual) Eosinophils # (Manual) Basophils # (Manual) PT INR APTT ABG pH 7.475 H ABG pO2 ABG HCO3 29.4 H 32.3 H ABG O2 Saturation ABG Base Excess 5.4 H 6.9 H ABG Hemoglobin 9.0 L 10.6 L Oxyhemoglobin 94.3 L Sodium Potassium Chloride Carbon Dioxide BUN Creatinine Glucose POC Glucose Lactic Acid Calcium Ionized Calcium Phosphorus Magnesium Total Bilirubin AST ALT Alkaline Phosphatase Ammonia Total Creatine Kinase CK-MB (CK-2) CK-MB (CK-2) Rel Index Total Protein Albumin Urine WBC (Auto) Vancomycin Trough Salicylates Acetaminophen Plasma/Serum Alcohol Crossmatch 11/25/19 11/25/19 11/26/19 05:05 22:46 03:31 WBC RBC Hgb Hct MCH RDW Plt Count Lymph % (Auto) [place] % (Auto) [place] # Baso # Seg Neutrophils % Seg Neuts % (Manual) Lymphocytes % (Manual) Monocytes % (Manual) Seg Neutrophils # Seg Neutrophils # Man Lymphocytes # (Manual) Monocytes # (Manual) Eosinophils # (Manual) Basophils # (Manual) PT INR APTT ABG pH 7.459 H ABG pO2 ABG HCO3 34.2 H ABG O2 Saturation ABG Base Excess 9.4 H ABG Hemoglobin 7.6 L Oxyhemoglobin 94.8 L Sodium 152 H D 147 H Potassium 2.3 L* D 2.8 L* D Chloride 107.8 H Carbon Dioxide 31 H D 33 H BUN Creatinine 0.6 L 0.6 L Glucose 148 H 177 H POC Glucose Lactic Acid Calcium Ionized Calcium Phosphorus Magnesium Total Bilirubin AST 105 H ALT 71 H Alkaline Phosphatase 155 H Ammonia Total Creatine Kinase CK-MB (CK-2) CK-MB (CK-2) Rel Index Total Protein 5.2 L D Albumin 2.9 L Urine WBC (Auto) Vancomycin Trough Salicylates Acetaminophen Plasma/Serum Alcohol Crossmatch 11/26/19 11/26/19 11/27/19 08:24 08:24 04:20 WBC 12.0 H RBC 3.00 L Hgb 8.0 L 9.3 L Hct 25.9 L 29.7 L MCH 27 L RDW 18.5 H Plt Count Lymph % (Auto) [place] % (Auto) [place] # Baso # Seg Neutrophils % Seg Neuts % (Manual) 89.0 H Lymphocytes % (Manual) 4.0 L Monocytes % (Manual) Seg Neutrophils # Seg Neutrophils # Man 10.7 H Lymphocytes # (Manual) 0.5 L Monocytes # (Manual) Eosinophils # (Manual) Basophils # (Manual) PT INR APTT ABG pH ABG pO2 ABG HCO3 ABG O2 Saturation ABG Base Excess ABG Hemoglobin Oxyhemoglobin Sodium 146 H Potassium 3.4 L D Chloride Carbon Dioxide BUN Creatinine 0.5 L Glucose 165 H POC Glucose Lactic Acid Calcium Ionized Calcium Phosphorus Magnesium Total Bilirubin AST 57 H ALT Alkaline Phosphatase 166 H Ammonia Total Creatine Kinase CK-MB (CK-2) CK-MB (CK-2) Rel Index Total Protein Albumin 2.9 L Urine WBC (Auto) Vancomycin Trough Salicylates Acetaminophen Plasma/Serum Alcohol Crossmatch 11/27/19 11/27/19 11/27/19 04:28 04:28 04:42 WBC RBC Hgb Hct MCH RDW Plt Count Lymph % (Auto) [place] % (Auto) [place] # Baso # Seg Neutrophils % Seg Neuts % (Manual) Lymphocytes % (Manual) Monocytes % (Manual) Seg Neutrophils # Seg Neutrophils # Man Lymphocytes # (Manual) Monocytes # (Manual) Eosinophils # (Manual) Basophils # (Manual) PT INR APTT ABG pH 7.470 H ABG pO2 74.0 L ABG HCO3 33.8 H ABG O2 Saturation ABG Base Excess 9.1 H ABG Hemoglobin 8.7 L Oxyhemoglobin 94.7 L Sodium 146 H Potassium 2.9 L* Chloride Carbon Dioxide BUN 25 H Creatinine Glucose 213 H POC Glucose Lactic Acid Calcium Ionized Calcium Phosphorus 1.00 L Magnesium Total Bilirubin AST ALT Alkaline Phosphatase Ammonia Total Creatine Kinase CK-MB (CK-2) CK-MB (CK-2) Rel Index Total Protein Albumin Urine WBC (Auto) Vancomycin Trough Salicylates Acetaminophen Plasma/Serum Alcohol Crossmatch 11/27/19 11/27/19 11/27/19 05:37 12:20 15:46 WBC RBC Hgb Hct MCH RDW Plt Count Lymph % (Auto) [place] % (Auto) [place] # Baso # Seg Neutrophils % Seg Neuts % (Manual) Lymphocytes % (Manual) Monocytes % (Manual) Seg Neutrophils # Seg Neutrophils # Man Lymphocytes # (Manual) Monocytes # (Manual) Eosinophils # (Manual) Basophils # (Manual) PT INR APTT ABG pH ABG pO2 ABG HCO3 ABG O2 Saturation ABG Base Excess ABG Hemoglobin Oxyhemoglobin Sodium 146 H Potassium 3.5 L D Chloride Carbon Dioxide BUN 24 H Creatinine 0.6 L Glucose 187 H POC Glucose 117 H 220 H Lactic Acid Calcium Ionized Calcium Phosphorus Magnesium Total Bilirubin AST ALT Alkaline Phosphatase Ammonia Total Creatine Kinase CK-MB (CK-2) CK-MB (CK-2) Rel Index Total Protein Albumin Urine WBC (Auto) Vancomycin Trough Salicylates Acetaminophen Plasma/Serum Alcohol Crossmatch 11/27/19 11/28/19 11/28/19 17:28 05:00 05:02 WBC RBC Hgb Hct MCH RDW Plt Count Lymph % (Auto) [place] % (Auto) [place] # Baso # Seg Neutrophils % Seg Neuts % (Manual) Lymphocytes % (Manual) Monocytes % (Manual) Seg Neutrophils # Seg Neutrophils # Man Lymphocytes # (Manual) Monocytes # (Manual) Eosinophils # (Manual) Basophils # (Manual) PT INR APTT ABG pH ABG pO2 72.4 L ABG HCO3 33.6 H ABG O2 Saturation 94.1 L ABG Base Excess 7.3 H ABG Hemoglobin Oxyhemoglobin 91.8 L Sodium 146 H Potassium 3.3 L Chloride Carbon Dioxide BUN 25 H Creatinine 0.6 L Glucose 176 H POC Glucose 198 H Lactic Acid Calcium Ionized Calcium Phosphorus Magnesium Total Bilirubin AST ALT Alkaline Phosphatase Ammonia Total Creatine Kinase CK-MB (CK-2) CK-MB (CK-2) Rel Index Total Protein Albumin Urine WBC (Auto) Vancomycin Trough Salicylates Acetaminophen Plasma/Serum Alcohol Crossmatch 11/28/19 11/28/19 11/29/19 05:02 18:55 10:43 WBC 15.2 H 19.0 H RBC 3.06 L 3.01 L Hgb 8.3 L 8.3 L Hct 27.0 L 26.4 L MCH 27 L RDW 19.0 H 19.7 H Plt Count 479 H 611 H Lymph % (Auto) [place] % (Auto) [place] # Baso # Seg Neutrophils % Seg Neuts % (Manual) 92.0 H Lymphocytes % (Manual) 2.0 L Monocytes % (Manual) Seg Neutrophils # Seg Neutrophils # Man 14.0 H Lymphocytes # (Manual) 0.3 L Monocytes # (Manual) Eosinophils # (Manual) Basophils # (Manual) PT INR APTT ABG pH ABG pO2 ABG HCO3 ABG O2 Saturation ABG Base Excess ABG Hemoglobin Oxyhemoglobin Sodium Potassium Chloride Carbon Dioxide BUN Creatinine Glucose POC Glucose 138 H Lactic Acid Calcium Ionized Calcium Phosphorus Magnesium Total Bilirubin AST ALT Alkaline Phosphatase Ammonia Total Creatine Kinase CK-MB (CK-2) CK-MB (CK-2) Rel Index Total Protein Albumin Urine WBC (Auto) Vancomycin Trough Salicylates Acetaminophen Plasma/Serum Alcohol Crossmatch 11/29/19 11/29/19 11/29/19 10:43 12:27 19:25 WBC RBC Hgb Hct MCH RDW Plt Count Lymph % (Auto) [place] % (Auto) [place] # Baso # Seg Neutrophils % Seg Neuts % (Manual) Lymphocytes % (Manual) Monocytes % (Manual) Seg Neutrophils # Seg Neutrophils # Man Lymphocytes # (Manual) Monocytes # (Manual) Eosinophils # (Manual) Basophils # (Manual) PT INR APTT ABG pH ABG pO2 ABG HCO3 ABG O2 Saturation ABG Base Excess ABG Hemoglobin Oxyhemoglobin Sodium Potassium 2.8 L* Chloride Carbon Dioxide BUN 20 H Creatinine 0.5 L Glucose 121 H POC Glucose 128 H 120 H Lactic Acid Calcium Ionized Calcium Phosphorus Magnesium Total Bilirubin AST ALT Alkaline Phosphatase Ammonia Total Creatine Kinase CK-MB (CK-2) CK-MB (CK-2) Rel Index Total Protein Albumin Urine WBC (Auto) Vancomycin Trough Salicylates Acetaminophen Plasma/Serum Alcohol Crossmatch 11/29/19 11/30/19 11/30/19 23:46 04:10 05:02 WBC RBC Hgb Hct MCH RDW Plt Count Lymph % (Auto) [place] % (Auto) [place] # Baso # Seg Neutrophils % Seg Neuts % (Manual) Lymphocytes % (Manual) Monocytes % (Manual) Seg Neutrophils # Seg Neutrophils # Man Lymphocytes # (Manual) Monocytes # (Manual) Eosinophils # (Manual) Basophils # (Manual) PT INR APTT ABG pH ABG pO2 76.3 L ABG HCO3 32.5 H ABG O2 Saturation ABG Base Excess 6.9 H ABG Hemoglobin 8.0 L Oxyhemoglobin 92.6 L Sodium Potassium Chloride Carbon Dioxide BUN Creatinine Glucose POC Glucose 116 H 128 H Lactic Acid Calcium Ionized Calcium Phosphorus Magnesium Total Bilirubin AST ALT Alkaline Phosphatase Ammonia Total Creatine Kinase CK-MB (CK-2) CK-MB (CK-2) Rel Index Total Protein Albumin Urine WBC (Auto) Vancomycin Trough Salicylates Acetaminophen Plasma/Serum Alcohol Crossmatch 11/30/19 11/30/19 11/30/19 05:25 05:25 12:59 WBC 18.4 H RBC 3.10 L Hgb 8.5 L Hct 27.5 L MCH 27 L RDW 20.9 H Plt Count 691 H Lymph % (Auto) 7.1 L [place] % (Auto) 7.7 H [place] # 1.4 H Baso # Seg Neutrophils % 83.4 H Seg Neuts % (Manual) Lymphocytes % (Manual) Monocytes % (Manual) Seg Neutrophils # 15.4 H Seg Neutrophils # Man Lymphocytes # (Manual) Monocytes # (Manual) Eosinophils # (Manual) Basophils # (Manual) PT INR APTT ABG pH ABG pO2 ABG HCO3 ABG O2 Saturation ABG Base Excess ABG Hemoglobin Oxyhemoglobin Sodium 146 H Potassium Chloride 107.2 H Carbon Dioxide BUN Creatinine 0.5 L Glucose 132 H POC Glucose 124 H Lactic Acid Calcium Ionized Calcium Phosphorus Magnesium Total Bilirubin AST 246 H ALT 274 H Alkaline Phosphatase 203 H Ammonia Total Creatine Kinase CK-MB (CK-2) CK-MB (CK-2) Rel Index Total Protein 5.4 L Albumin 2.9 L Urine WBC (Auto) Vancomycin Trough Salicylates Acetaminophen Plasma/Serum Alcohol Crossmatch 11/30/19 12/01/19 12/01/19 17:53 00:05 05:10 WBC RBC Hgb Hct MCH RDW Plt Count Lymph % (Auto) [place] % (Auto) [place] # Baso # Seg Neutrophils % Seg Neuts % (Manual) Lymphocytes % (Manual) Monocytes % (Manual) Seg Neutrophils # Seg Neutrophils # Man Lymphocytes # (Manual) Monocytes # (Manual) Eosinophils # (Manual) Basophils # (Manual) PT INR APTT ABG pH ABG pO2 ABG HCO3 ABG O2 Saturation ABG Base Excess ABG Hemoglobin Oxyhemoglobin Sodium Potassium Chloride Carbon Dioxide BUN Creatinine Glucose POC Glucose 113 H 143 H 145 H Lactic Acid Calcium Ionized Calcium Phosphorus Magnesium Total Bilirubin AST ALT Alkaline Phosphatase Ammonia Total Creatine Kinase CK-MB (CK-2) CK-MB (CK-2) Rel Index Total Protein Albumin Urine WBC (Auto) Vancomycin Trough Salicylates Acetaminophen Plasma/Serum Alcohol Crossmatch 12/01/19 12/01/19 12/01/19 05:33 08:23 08:23 WBC 22.7 H RBC 2.88 L Hgb 7.9 L Hct 25.2 L MCH 27 L RDW 21.0 H Plt Count 732 H Lymph % (Auto) [place] % (Auto) [place] # Baso # Seg Neutrophils % Seg Neuts % (Manual) 91.0 H Lymphocytes % (Manual) 3.0 L Monocytes % (Manual) Seg Neutrophils # Seg Neutrophils # Man 20.7 H Lymphocytes # (Manual) 0.7 L Monocytes # (Manual) 1.1 H Eosinophils # (Manual) Basophils # (Manual) PT INR APTT ABG pH ABG pO2 68.6 L ABG HCO3 34.1 H ABG O2 Saturation ABG Base Excess 9.0 H ABG Hemoglobin 6.5 L Oxyhemoglobin 94.7 L Sodium Potassium Chloride Carbon Dioxide BUN Creatinine 0.5 L Glucose 125 H POC Glucose Lactic Acid Calcium Ionized Calcium Phosphorus Magnesium Total Bilirubin AST ALT Alkaline Phosphatase Ammonia Total Creatine Kinase CK-MB (CK-2) CK-MB (CK-2) Rel Index Total Protein Albumin Urine WBC (Auto) Vancomycin Trough Salicylates Acetaminophen Plasma/Serum Alcohol Crossmatch 12/01/19 12/01/19 12/01/19 13:21 17:54 20:59 WBC RBC Hgb Hct MCH RDW Plt Count Lymph % (Auto) [place] % (Auto) [place] # Baso # Seg Neutrophils % Seg Neuts % (Manual) Lymphocytes % (Manual) Monocytes % (Manual) Seg Neutrophils # Seg Neutrophils # Man Lymphocytes # (Manual) Monocytes # (Manual) Eosinophils # (Manual) Basophils # (Manual) PT INR APTT ABG pH ABG pO2 78.3 L ABG HCO3 33.8 H ABG O2 Saturation 94.9 L ABG Base Excess 7.9 H ABG Hemoglobin 11.5 L Oxyhemoglobin 92.3 L Sodium Potassium Chloride Carbon Dioxide BUN Creatinine Glucose POC Glucose 111 H 115 H Lactic Acid Calcium Ionized Calcium Phosphorus Magnesium Total Bilirubin AST ALT Alkaline Phosphatase Ammonia Total Creatine Kinase CK-MB (CK-2) CK-MB (CK-2) Rel Index Total Protein Albumin Urine WBC (Auto) Vancomycin Trough Salicylates Acetaminophen Plasma/Serum Alcohol Crossmatch 12/02/19 12/03/19 12/04/19 12:55 20:00 04:26 WBC 15.2 H RBC 2.69 L Hgb 7.4 L Hct 23.6 L MCH 27 L RDW 19.9 H Plt Count 838 H Lymph % (Auto) [place] % (Auto) [place] # Baso # Seg Neutrophils % Seg Neuts % (Manual) Lymphocytes % (Manual) Monocytes % (Manual) Seg Neutrophils # Seg Neutrophils # Man Lymphocytes # (Manual) Monocytes # (Manual) Eosinophils # (Manual) Basophils # (Manual) PT INR APTT ABG pH ABG pO2 68.3 L ABG HCO3 33.5 H ABG O2 Saturation 93.5 L ABG Base Excess 8.4 H ABG Hemoglobin 7.3 L Oxyhemoglobin 90.9 L Sodium Potassium Chloride Carbon Dioxide BUN Creatinine Glucose POC Glucose 107 H Lactic Acid Calcium Ionized Calcium Phosphorus Magnesium Total Bilirubin AST ALT Alkaline Phosphatase Ammonia Total Creatine Kinase CK-MB (CK-2) CK-MB (CK-2) Rel Index Total Protein Albumin Urine WBC (Auto) Vancomycin Trough Salicylates Acetaminophen Plasma/Serum Alcohol Crossmatch 12/04/19 12/04/19 12/04/19 04:26 07:45 12:02 WBC 15.9 H RBC 2.88 L Hgb 7.9 L Hct 25.1 L MCH RDW 20.4 H Plt Count 839 H Lymph % (Auto) 11.3 L [place] % (Auto) 15.2 H [place] # 2.4 H Baso # Seg Neutrophils % 72.4 H Seg Neuts % (Manual) Lymphocytes % (Manual) Monocytes % (Manual) Seg Neutrophils # 11.5 H Seg Neutrophils # Man Lymphocytes # (Manual) Monocytes # (Manual) Eosinophils # (Manual) Basophils # (Manual) PT INR APTT ABG pH ABG pO2 ABG HCO3 ABG O2 Saturation ABG Base Excess ABG Hemoglobin Oxyhemoglobin Sodium Potassium Chloride 96.5 L Carbon Dioxide BUN 21 H Creatinine 0.6 L Glucose 107 H POC Glucose 138 H Lactic Acid Calcium Ionized Calcium Phosphorus Magnesium Total Bilirubin AST ALT Alkaline Phosphatase Ammonia Total Creatine Kinase CK-MB (CK-2) CK-MB (CK-2) Rel Index Total Protein Albumin Urine WBC (Auto) Vancomycin Trough Salicylates Acetaminophen Plasma/Serum Alcohol Crossmatch 12/04/19 12/05/19 12/05/19 18:16 11:55 18:36 WBC RBC Hgb Hct MCH RDW Plt Count Lymph % (Auto) [place] % (Auto) [place] # Baso # Seg Neutrophils % Seg Neuts % (Manual) Lymphocytes % (Manual) Monocytes % (Manual) Seg Neutrophils # Seg Neutrophils # Man Lymphocytes # (Manual) Monocytes # (Manual) Eosinophils # (Manual) Basophils # (Manual) PT INR APTT ABG pH ABG pO2 ABG HCO3 ABG O2 Saturation ABG Base Excess ABG Hemoglobin Oxyhemoglobin Sodium Potassium Chloride Carbon Dioxide BUN Creatinine Glucose POC Glucose 135 H 125 H 135 H Lactic Acid Calcium Ionized Calcium Phosphorus Magnesium Total Bilirubin AST ALT Alkaline Phosphatase Ammonia Total Creatine Kinase CK-MB (CK-2) CK-MB (CK-2) Rel Index Total Protein Albumin Urine WBC (Auto) Vancomycin Trough Salicylates Acetaminophen Plasma/Serum Alcohol Crossmatch 12/05/19 12/06/19 12/06/19 23:30 04:14 05:43 WBC RBC Hgb Hct MCH RDW Plt Count Lymph % (Auto) [place] % (Auto) [place] # Baso # Seg Neutrophils % Seg Neuts % (Manual) Lymphocytes % (Manual) Monocytes % (Manual) Seg Neutrophils # Seg Neutrophils # Man Lymphocytes # (Manual) Monocytes # (Manual) Eosinophils # (Manual) Basophils # (Manual) PT INR APTT ABG pH ABG pO2 ABG HCO3 ABG O2 Saturation ABG Base Excess ABG Hemoglobin Oxyhemoglobin Sodium Potassium 5.6 H Chloride 95.0 L Carbon Dioxide BUN 48 H Creatinine 1.3 H D Glucose POC Glucose 126 H 121 H Lactic Acid Calcium Ionized Calcium Phosphorus Magnesium Total Bilirubin AST 89 H ALT 98 H Alkaline Phosphatase 476 H Ammonia Total Creatine Kinase CK-MB (CK-2) CK-MB (CK-2) Rel Index Total Protein Albumin 2.8 L Urine WBC (Auto) Vancomycin Trough Salicylates Acetaminophen Plasma/Serum Alcohol Crossmatch 12/06/19 12/06/19 12/07/19 10:39 14:34 00:19 WBC 17.3 H RBC 2.60 L Hgb 7.1 L Hct 22.7 L MCH 27 L RDW 20.1 H Plt Count 832 H Lymph % (Auto) [place] % (Auto) [place] # Baso # Seg Neutrophils % Seg Neuts % (Manual) Lymphocytes % (Manual) Monocytes % (Manual) Seg Neutrophils # Seg Neutrophils # Man Lymphocytes # (Manual) Monocytes # (Manual) Eosinophils # (Manual) Basophils # (Manual) PT INR APTT ABG pH ABG pO2 ABG HCO3 ABG O2 Saturation ABG Base Excess ABG Hemoglobin Oxyhemoglobin Sodium Potassium Chloride Carbon Dioxide BUN Creatinine Glucose POC Glucose 128 H 136 H Lactic Acid Calcium Ionized Calcium Phosphorus Magnesium Total Bilirubin AST ALT Alkaline Phosphatase Ammonia Total Creatine Kinase CK-MB (CK-2) CK-MB (CK-2) Rel Index Total Protein Albumin Urine WBC (Auto) Vancomycin Trough Salicylates Acetaminophen Plasma/Serum Alcohol Crossmatch 12/07/19 12/07/19 12/07/19 03:44 03:44 05:53 WBC 16.2 H RBC 2.56 L Hgb 7.1 L Hct 22.3 L MCH RDW 19.4 H Plt Count 782 H Lymph % (Auto) [place] % (Auto) [place] # Baso # Seg Neutrophils % Seg Neuts % (Manual) Lymphocytes % (Manual) Monocytes % (Manual) Seg Neutrophils # Seg Neutrophils # Man Lymphocytes # (Manual) Monocytes # (Manual) Eosinophils # (Manual) Basophils # (Manual) PT INR APTT ABG pH ABG pO2 ABG HCO3 ABG O2 Saturation ABG Base Excess ABG Hemoglobin Oxyhemoglobin Sodium Potassium Chloride 95.6 L Carbon Dioxide BUN 56 H Creatinine 1.4 H Glucose 120 H POC Glucose 128 H Lactic Acid Calcium 10.3 H Ionized Calcium Phosphorus Magnesium Total Bilirubin AST ALT Alkaline Phosphatase Ammonia Total Creatine Kinase CK-MB (CK-2) CK-MB (CK-2) Rel Index Total Protein Albumin Urine WBC (Auto) Vancomycin Trough Salicylates Acetaminophen Plasma/Serum Alcohol Crossmatch 12/07/19 12/07/19 12/08/19 12:54 23:47 00:20 WBC RBC Hgb Hct MCH RDW Plt Count Lymph % (Auto) [place] % (Auto) [place] # Baso # Seg Neutrophils % Seg Neuts % (Manual) Lymphocytes % (Manual) Monocytes % (Manual) Seg Neutrophils # Seg Neutrophils # Man Lymphocytes # (Manual) Monocytes # (Manual) Eosinophils # (Manual) Basophils # (Manual) PT INR APTT ABG pH ABG pO2 ABG HCO3 ABG O2 Saturation ABG Base Excess ABG Hemoglobin Oxyhemoglobin Sodium Potassium Chloride Carbon Dioxide BUN Creatinine Glucose POC Glucose 128 H 130 H 124 H Lactic Acid Calcium Ionized Calcium Phosphorus Magnesium Total Bilirubin AST ALT Alkaline Phosphatase Ammonia Total Creatine Kinase CK-MB (CK-2) CK-MB (CK-2) Rel Index Total Protein Albumin Urine WBC (Auto) Vancomycin Trough Salicylates Acetaminophen Plasma/Serum Alcohol Crossmatch 12/08/19 12/08/19 12/08/19 06:38 12:04 18:26 WBC RBC Hgb Hct MCH RDW Plt Count Lymph % (Auto) [place] % (Auto) [place] # Baso # Seg Neutrophils % Seg Neuts % (Manual) Lymphocytes % (Manual) Monocytes % (Manual) Seg Neutrophils # Seg Neutrophils # Man Lymphocytes # (Manual) Monocytes # (Manual) Eosinophils # (Manual) Basophils # (Manual) PT INR APTT ABG pH ABG pO2 ABG HCO3 ABG O2 Saturation ABG Base Excess ABG Hemoglobin Oxyhemoglobin Sodium Potassium Chloride Carbon Dioxide BUN Creatinine Glucose POC Glucose 137 H 129 H 150 H Lactic Acid Calcium Ionized Calcium Phosphorus Magnesium Total Bilirubin AST ALT Alkaline Phosphatase Ammonia Total Creatine Kinase CK-MB (CK-2) CK-MB (CK-2) Rel Index Total Protein Albumin Urine WBC (Auto) Vancomycin Trough Salicylates Acetaminophen Plasma/Serum Alcohol Crossmatch 12/09/19 12/09/19 12/09/19 00:56 05:34 06:13 WBC RBC Hgb Hct MCH RDW Plt Count Lymph % (Auto) [place] % (Auto) [place] # Baso # Seg Neutrophils % Seg Neuts % (Manual) Lymphocytes % (Manual) Monocytes % (Manual) Seg Neutrophils # Seg Neutrophils # Man Lymphocytes # (Manual) Monocytes # (Manual) Eosinophils # (Manual) Basophils # (Manual) PT INR APTT ABG pH ABG pO2 ABG HCO3 ABG O2 Saturation ABG Base Excess ABG Hemoglobin Oxyhemoglobin Sodium 146 H Potassium Chloride Carbon Dioxide BUN 66 H Creatinine 1.9 H Glucose 116 H POC Glucose 130 H 130 H Lactic Acid Calcium Ionized Calcium Phosphorus Magnesium Total Bilirubin AST ALT Alkaline Phosphatase Ammonia Total Creatine Kinase CK-MB (CK-2) CK-MB (CK-2) Rel Index Total Protein Albumin Urine WBC (Auto) Vancomycin Trough Salicylates Acetaminophen Plasma/Serum Alcohol Crossmatch 12/09/19 12/09/19 12/10/19 11:52 17:50 00:14 WBC RBC Hgb Hct MCH RDW Plt Count Lymph % (Auto) [place] % (Auto) [place] # Baso # Seg Neutrophils % Seg Neuts % (Manual) Lymphocytes % (Manual) Monocytes % (Manual) Seg Neutrophils # Seg Neutrophils # Man Lymphocytes # (Manual) Monocytes # (Manual) Eosinophils # (Manual) Basophils # (Manual) PT INR APTT ABG pH ABG pO2 ABG HCO3 ABG O2 Saturation ABG Base Excess ABG Hemoglobin Oxyhemoglobin Sodium Potassium Chloride Carbon Dioxide BUN Creatinine Glucose POC Glucose 135 H 120 H 116 H Lactic Acid Calcium Ionized Calcium Phosphorus Magnesium Total Bilirubin AST ALT Alkaline Phosphatase Ammonia Total Creatine Kinase CK-MB (CK-2) CK-MB (CK-2) Rel Index Total Protein Albumin Urine WBC (Auto) Vancomycin Trough Salicylates Acetaminophen Plasma/Serum Alcohol Crossmatch 12/10/19 12/10/19 12/10/19 05:38 11:38 17:34 WBC RBC Hgb Hct MCH RDW Plt Count Lymph % (Auto) [place] % (Auto) [place] # Baso # Seg Neutrophils % Seg Neuts % (Manual) Lymphocytes % (Manual) Monocytes % (Manual) Seg Neutrophils # Seg Neutrophils # Man Lymphocytes # (Manual) Monocytes # (Manual) Eosinophils # (Manual) Basophils # (Manual) PT INR APTT ABG pH ABG pO2 ABG HCO3 ABG O2 Saturation ABG Base Excess ABG Hemoglobin Oxyhemoglobin Sodium Potassium Chloride Carbon Dioxide BUN Creatinine Glucose POC Glucose 115 H 112 H 130 H Lactic Acid Calcium Ionized Calcium Phosphorus Magnesium Total Bilirubin AST ALT Alkaline Phosphatase Ammonia Total Creatine Kinase CK-MB (CK-2) CK-MB (CK-2) Rel Index Total Protein Albumin Urine WBC (Auto) Vancomycin Trough Salicylates Acetaminophen Plasma/Serum Alcohol Crossmatch 12/11/19 12/11/19 12/11/19 00:20 05:31 12:22 WBC RBC Hgb Hct MCH RDW Plt Count Lymph % (Auto) [place] % (Auto) [place] # Baso # Seg Neutrophils % Seg Neuts % (Manual) Lymphocytes % (Manual) Monocytes % (Manual) Seg Neutrophils # Seg Neutrophils # Man Lymphocytes # (Manual) Monocytes # (Manual) Eosinophils # (Manual) Basophils # (Manual) PT INR APTT ABG pH ABG pO2 ABG HCO3 ABG O2 Saturation ABG Base Excess ABG Hemoglobin Oxyhemoglobin Sodium Potassium Chloride Carbon Dioxide BUN Creatinine Glucose POC Glucose 124 H 132 H 128 H Lactic Acid Calcium Ionized Calcium Phosphorus Magnesium Total Bilirubin AST ALT Alkaline Phosphatase Ammonia Total Creatine Kinase CK-MB (CK-2) CK-MB (CK-2) Rel Index Total Protein Albumin Urine WBC (Auto) Vancomycin Trough Salicylates Acetaminophen Plasma/Serum Alcohol Crossmatch 12/11/19 12/11/19 12/12/19 18:04 23:42 03:51 WBC RBC Hgb Hct MCH RDW Plt Count Lymph % (Auto) [place] % (Auto) [place] # Baso # Seg Neutrophils % Seg Neuts % (Manual) Lymphocytes % (Manual) Monocytes % (Manual) Seg Neutrophils # Seg Neutrophils # Man Lymphocytes # (Manual) Monocytes # (Manual) Eosinophils # (Manual) Basophils # (Manual) PT INR APTT ABG pH ABG pO2 ABG HCO3 ABG O2 Saturation ABG Base Excess ABG Hemoglobin Oxyhemoglobin Sodium 149 H Potassium Chloride Carbon Dioxide 20 L D BUN 77 H Creatinine 2.8 H Glucose POC Glucose 133 H 154 H Lactic Acid Calcium Ionized Calcium Phosphorus Magnesium Total Bilirubin AST ALT Alkaline Phosphatase Ammonia Total Creatine Kinase CK-MB (CK-2) CK-MB (CK-2) Rel Index Total Protein Albumin Urine WBC (Auto) Vancomycin Trough Salicylates Acetaminophen Plasma/Serum Alcohol Crossmatch 12/12/19 12/12/19 12/12/19 05:18 05:26 10:30 WBC 18.0 H RBC 2.51 L Hgb 6.8 L Hct 22.0 L MCH 27 L RDW 19.9 H Plt Count 582 H Lymph % (Auto) [place] % (Auto) [place] # Baso # Seg Neutrophils % Seg Neuts % (Manual) Lymphocytes % (Manual) Monocytes % (Manual) Seg Neutrophils # Seg Neutrophils # Man Lymphocytes # (Manual) Monocytes # (Manual) Eosinophils # (Manual) Basophils # (Manual) PT INR APTT ABG pH ABG pO2 ABG HCO3 ABG O2 Saturation ABG Base Excess ABG Hemoglobin Oxyhemoglobin Sodium Potassium Chloride Carbon Dioxide BUN Creatinine Glucose POC Glucose 135 H Lactic Acid Calcium Ionized Calcium Phosphorus Magnesium Total Bilirubin AST ALT Alkaline Phosphatase Ammonia Total Creatine Kinase CK-MB (CK-2) CK-MB (CK-2) Rel Index Total Protein Albumin Urine WBC (Auto) Vancomycin Trough Salicylates Acetaminophen Plasma/Serum Alcohol Crossmatch See Detail 12/12/19 12/12/19 12/12/19 11:44 18:10 23:21 WBC RBC Hgb Hct MCH RDW Plt Count Lymph % (Auto) [place] % (Auto) [place] # Baso # Seg Neutrophils % Seg Neuts % (Manual) Lymphocytes % (Manual) Monocytes % (Manual) Seg Neutrophils # Seg Neutrophils # Man Lymphocytes # (Manual) Monocytes # (Manual) Eosinophils # (Manual) Basophils # (Manual) PT INR APTT ABG pH ABG pO2 ABG HCO3 ABG O2 Saturation ABG Base Excess ABG Hemoglobin Oxyhemoglobin Sodium Potassium Chloride Carbon Dioxide BUN Creatinine Glucose POC Glucose 108 H 107 H 126 H Lactic Acid Calcium Ionized Calcium Phosphorus Magnesium Total Bilirubin AST ALT Alkaline Phosphatase Ammonia Total Creatine Kinase CK-MB (CK-2) CK-MB (CK-2) Rel Index Total Protein Albumin Urine WBC (Auto) Vancomycin Trough Salicylates Acetaminophen Plasma/Serum Alcohol Crossmatch 12/13/19 12/13/19 12/13/19 05:41 07:48 07:48 WBC 38.3 H RBC 2.37 L Hgb 6.3 L Hct 20.9 L MCH 27 L RDW 20.2 H Plt Count 546 H Lymph % (Auto) [place] % (Auto) [place] # Baso # Seg Neutrophils % Seg Neuts % (Manual) 93.0 H Lymphocytes % (Manual) 1.0 L Monocytes % (Manual) Seg Neutrophils # Seg Neutrophils # Man 35.6 H Lymphocytes # (Manual) 0.4 L Monocytes # (Manual) Eosinophils # (Manual) Basophils # (Manual) 0.4 H PT INR APTT ABG pH ABG pO2 ABG HCO3 ABG O2 Saturation ABG Base Excess ABG Hemoglobin Oxyhemoglobin Sodium 152 H Potassium 3.1 L D Chloride 111.9 H Carbon Dioxide 21 L BUN 53 H Creatinine 1.9 H Glucose 141 H POC Glucose 128 H Lactic Acid Calcium Ionized Calcium Phosphorus Magnesium Total Bilirubin AST ALT Alkaline Phosphatase 316 H Ammonia Total Creatine Kinase CK-MB (CK-2) CK-MB (CK-2) Rel Index Total Protein Albumin 2.4 L Urine WBC (Auto) Vancomycin Trough Salicylates Acetaminophen Plasma/Serum Alcohol Crossmatch 12/13/19 12/13/19 12/14/19 18:17 23:19 05:36 WBC RBC Hgb Hct MCH RDW Plt Count Lymph % (Auto) [place] % (Auto) [place] # Baso # Seg Neutrophils % Seg Neuts % (Manual) Lymphocytes % (Manual) Monocytes % (Manual) Seg Neutrophils # Seg Neutrophils # Man Lymphocytes # (Manual) Monocytes # (Manual) Eosinophils # (Manual) Basophils # (Manual) PT INR APTT ABG pH ABG pO2 ABG HCO3 ABG O2 Saturation ABG Base Excess ABG Hemoglobin Oxyhemoglobin Sodium Potassium Chloride Carbon Dioxide BUN Creatinine Glucose POC Glucose 141 H 158 H 182 H Lactic Acid Calcium Ionized Calcium Phosphorus Magnesium Total Bilirubin AST ALT Alkaline Phosphatase Ammonia Total Creatine Kinase CK-MB (CK-2) CK-MB (CK-2) Rel Index Total Protein Albumin Urine WBC (Auto) Vancomycin Trough Salicylates Acetaminophen Plasma/Serum Alcohol Crossmatch 12/14/19 12/14/19 12/14/19 08:48 08:48 10:31 WBC 33.3 H RBC 2.70 L Hgb 7.9 L 8.0 L Hct 25.3 L 24.0 L MCH RDW 19.2 H Plt Count 476 H Lymph % (Auto) [place] % (Auto) [place] # Baso # Seg Neutrophils % Seg Neuts % (Manual) Lymphocytes % (Manual) Monocytes % (Manual) Seg Neutrophils # Seg Neutrophils # Man Lymphocytes # (Manual) Monocytes # (Manual) Eosinophils # (Manual) Basophils # (Manual) PT INR APTT ABG pH ABG pO2 ABG HCO3 ABG O2 Saturation ABG Base Excess ABG Hemoglobin Oxyhemoglobin Sodium 153 H Potassium 2.5 L* Chloride 114.9 H Carbon Dioxide 20 L BUN 38 H Creatinine 1.4 H Glucose 177 H POC Glucose Lactic Acid Calcium Ionized Calcium Phosphorus Magnesium Total Bilirubin AST ALT Alkaline Phosphatase Ammonia Total Creatine Kinase CK-MB (CK-2) CK-MB (CK-2) Rel Index Total Protein Albumin Urine WBC (Auto) Vancomycin Trough Salicylates Acetaminophen Plasma/Serum Alcohol Crossmatch 12/14/19 12/14/19 12/14/19 12:57 16:15 17:50 WBC RBC Hgb Hct MCH RDW Plt Count Lymph % (Auto) [place] % (Auto) [place] # Baso # Seg Neutrophils % Seg Neuts % (Manual) Lymphocytes % (Manual) Monocytes % (Manual) Seg Neutrophils # Seg Neutrophils # Man Lymphocytes # (Manual) Monocytes # (Manual) Eosinophils # (Manual) Basophils # (Manual) PT INR APTT ABG pH ABG pO2 73.6 L ABG HCO3 ABG O2 Saturation ABG Base Excess ABG Hemoglobin 7.6 L Oxyhemoglobin 94.0 L Sodium Potassium Chloride Carbon Dioxide BUN Creatinine Glucose POC Glucose 174 H 150 H Lactic Acid Calcium Ionized Calcium Phosphorus Magnesium Total Bilirubin AST ALT Alkaline Phosphatase Ammonia Total Creatine Kinase CK-MB (CK-2) CK-MB (CK-2) Rel Index Total Protein Albumin Urine WBC (Auto) Vancomycin Trough Salicylates Acetaminophen Plasma/Serum Alcohol Crossmatch 12/15/19 12/15/19 12/15/19 00:28 05:27 07:23 WBC 30.0 H RBC 3.11 L Hgb 8.6 L Hct 27.7 L MCH RDW 20.0 H Plt Count 473 H Lymph % (Auto) [place] % (Auto) [place] # Baso # Seg Neutrophils % Seg Neuts % (Manual) Lymphocytes % (Manual) Monocytes % (Manual) Seg Neutrophils # Seg Neutrophils # Man Lymphocytes # (Manual) Monocytes # (Manual) Eosinophils # (Manual) Basophils # (Manual) PT INR APTT ABG pH ABG pO2 ABG HCO3 ABG O2 Saturation ABG Base Excess ABG Hemoglobin Oxyhemoglobin Sodium Potassium Chloride Carbon Dioxide BUN Creatinine Glucose POC Glucose 167 H 148 H Lactic Acid Calcium Ionized Calcium Phosphorus Magnesium Total Bilirubin AST ALT Alkaline Phosphatase Ammonia Total Creatine Kinase CK-MB (CK-2) CK-MB (CK-2) Rel Index Total Protein Albumin Urine WBC (Auto) Vancomycin Trough Salicylates Acetaminophen Plasma/Serum Alcohol Crossmatch 12/15/19 12/15/19 12/15/19 07:23 12:21 17:41 WBC RBC Hgb Hct MCH RDW Plt Count Lymph % (Auto) [place] % (Auto) [place] # Baso # Seg Neutrophils % Seg Neuts % (Manual) Lymphocytes % (Manual) Monocytes % (Manual) Seg Neutrophils # Seg Neutrophils # Man Lymphocytes # (Manual) Monocytes # (Manual) Eosinophils # (Manual) Basophils # (Manual) PT INR APTT ABG pH ABG pO2 ABG HCO3 ABG O2 Saturation ABG Base Excess ABG Hemoglobin Oxyhemoglobin Sodium 147 H Potassium 3.5 L D Chloride 111.2 H Carbon Dioxide 19 L BUN 29 H Creatinine Glucose 126 H POC Glucose 154 H 144 H Lactic Acid Calcium Ionized Calcium Phosphorus Magnesium Total Bilirubin AST ALT Alkaline Phosphatase Ammonia Total Creatine Kinase CK-MB (CK-2) CK-MB (CK-2) Rel Index Total Protein Albumin Urine WBC (Auto) Vancomycin Trough Salicylates Acetaminophen Plasma/Serum Alcohol Crossmatch 12/16/19 12/16/19 12/16/19 00:22 05:30 05:44 WBC 30.8 H RBC 2.58 L Hgb 7.1 L Hct 22.7 L MCH RDW 19.6 H Plt Count 451 H Lymph % (Auto) [place] % (Auto) [place] # Baso # Seg Neutrophils % Seg Neuts % (Manual) Lymphocytes % (Manual) Monocytes % (Manual) Seg Neutrophils # Seg Neutrophils # Man Lymphocytes # (Manual) Monocytes # (Manual) Eosinophils # (Manual) Basophils # (Manual) PT INR APTT ABG pH ABG pO2 ABG HCO3 ABG O2 Saturation ABG Base Excess ABG Hemoglobin Oxyhemoglobin Sodium Potassium Chloride Carbon Dioxide BUN Creatinine Glucose POC Glucose 139 H 126 H Lactic Acid Calcium Ionized Calcium Phosphorus Magnesium Total Bilirubin AST ALT Alkaline Phosphatase Ammonia Total Creatine Kinase CK-MB (CK-2) CK-MB (CK-2) Rel Index Total Protein Albumin Urine WBC (Auto) Vancomycin Trough Salicylates Acetaminophen Plasma/Serum Alcohol Crossmatch 12/16/19 12/16/19 12/16/19 05:44 11:48 17:37 WBC RBC Hgb Hct MCH RDW Plt Count Lymph % (Auto) [place] % (Auto) [place] # Baso # Seg Neutrophils % Seg Neuts % (Manual) Lymphocytes % (Manual) Monocytes % (Manual) Seg Neutrophils # Seg Neutrophils # Man Lymphocytes # (Manual) Monocytes # (Manual) Eosinophils # (Manual) Basophils # (Manual) PT INR APTT ABG pH ABG pO2 ABG HCO3 ABG O2 Saturation ABG Base Excess ABG Hemoglobin Oxyhemoglobin Sodium Potassium 3.4 L Chloride 109.2 H Carbon Dioxide 19 L BUN 27 H Creatinine Glucose 124 H POC Glucose 125 H 148 H Lactic Acid Calcium Ionized Calcium Phosphorus Magnesium Total Bilirubin AST ALT Alkaline Phosphatase Ammonia Total Creatine Kinase CK-MB (CK-2) CK-MB (CK-2) Rel Index Total Protein Albumin Urine WBC (Auto) Vancomycin Trough Salicylates Acetaminophen Plasma/Serum Alcohol Crossmatch 12/16/19 12/17/19 12/17/19 23:43 05:28 12:47 WBC RBC Hgb Hct MCH RDW Plt Count Lymph % (Auto) [place] % (Auto) [place] # Baso # Seg Neutrophils % Seg Neuts % (Manual) Lymphocytes % (Manual) Monocytes % (Manual) Seg Neutrophils # Seg Neutrophils # Man Lymphocytes # (Manual) Monocytes # (Manual) Eosinophils # (Manual) Basophils # (Manual) PT INR APTT ABG pH ABG pO2 ABG HCO3 ABG O2 Saturation ABG Base Excess ABG Hemoglobin Oxyhemoglobin Sodium Potassium Chloride Carbon Dioxide BUN Creatinine Glucose POC Glucose 142 H 140 H 125 H Lactic Acid Calcium Ionized Calcium Phosphorus Magnesium Total Bilirubin AST ALT Alkaline Phosphatase Ammonia Total Creatine Kinase CK-MB (CK-2) CK-MB (CK-2) Rel Index Total Protein Albumin Urine WBC (Auto) Vancomycin Trough Salicylates Acetaminophen Plasma/Serum Alcohol Crossmatch 12/17/19 12/17/19 12/17/19 17:05 18:00 Unknown WBC RBC Hgb Hct MCH RDW Plt Count Lymph % (Auto) [place] % (Auto) [place] # Baso # Seg Neutrophils % Seg Neuts % (Manual) Lymphocytes % (Manual) Monocytes % (Manual) Seg Neutrophils # Seg Neutrophils # Man Lymphocytes # (Manual) Monocytes # (Manual) Eosinophils # (Manual) Basophils # (Manual) PT INR APTT ABG pH ABG pO2 68.1 L ABG HCO3 ABG O2 Saturation 93.7 L ABG Base Excess ABG Hemoglobin 5.0 L Oxyhemoglobin 91.7 L Sodium Potassium Chloride Carbon Dioxide BUN Creatinine Glucose POC Glucose 140 H Lactic Acid Calcium Ionized Calcium Phosphorus Magnesium Total Bilirubin AST ALT Alkaline Phosphatase Ammonia Total Creatine Kinase CK-MB (CK-2) CK-MB (CK-2) Rel Index Total Protein Albumin Urine WBC (Auto) Vancomycin Trough Salicylates Acetaminophen Plasma/Serum Alcohol Crossmatch 12/18/19 12/18/19 12/18/19 00:16 04:53 04:53 WBC 28.6 H RBC 2.27 L Hgb 6.3 L Hct 19.5 L* MCH RDW 20.0 H Plt Count 497 H Lymph % (Auto) [place] % (Auto) [place] # Baso # Seg Neutrophils % Seg Neuts % (Manual) Lymphocytes % (Manual) Monocytes % (Manual) Seg Neutrophils # Seg Neutrophils # Man Lymphocytes # (Manual) Monocytes # (Manual) Eosinophils # (Manual) Basophils # (Manual) PT INR APTT ABG pH ABG pO2 ABG HCO3 ABG O2 Saturation ABG Base Excess ABG Hemoglobin Oxyhemoglobin Sodium Potassium Chloride 107.9 H Carbon Dioxide 20 L BUN 27 H Creatinine 0.6 L Glucose 116 H POC Glucose 123 H Lactic Acid Calcium Ionized Calcium Phosphorus Magnesium Total Bilirubin AST ALT Alkaline Phosphatase Ammonia Total Creatine Kinase CK-MB (CK-2) CK-MB (CK-2) Rel Index Total Protein Albumin Urine WBC (Auto) Vancomycin Trough Salicylates Acetaminophen Plasma/Serum Alcohol Crossmatch 03/31/20 03/31/20 03/31/20 06:38 11:22 12:08 WBC RBC Hgb Hct MCH RDW Plt Count Lymph % (Auto) [place] % (Auto) [place] # Baso # Seg Neutrophils % Seg Neuts % (Manual) Lymphocytes % (Manual) Monocytes % (Manual) Seg Neutrophils # Seg Neutrophils # Man Lymphocytes # (Manual) Monocytes # (Manual) Eosinophils # (Manual) Basophils # (Manual) PT INR APTT ABG pH ABG pO2 ABG HCO3 ABG O2 Saturation ABG Base Excess ABG Hemoglobin Oxyhemoglobin Sodium Potassium Chloride Carbon Dioxide BUN Creatinine Glucose POC Glucose 120 H 127 H Lactic Acid Calcium Ionized Calcium Phosphorus Magnesium Total Bilirubin AST ALT Alkaline Phosphatase Ammonia Total Creatine Kinase CK-MB (CK-2) CK-MB (CK-2) Rel Index Total Protein Albumin Urine WBC (Auto) Vancomycin Trough Salicylates Acetaminophen Plasma/Serum Alcohol Crossmatch See Detail 12/18/19 12/18/19 12/18/19 14:05 17:49 23:53 WBC RBC Hgb Hct MCH RDW Plt Count Lymph % (Auto) [place] % (Auto) [place] # Baso # Seg Neutrophils % Seg Neuts % (Manual) Lymphocytes % (Manual) Monocytes % (Manual) Seg Neutrophils # Seg Neutrophils # Man Lymphocytes # (Manual) Monocytes # (Manual) Eosinophils # (Manual) Basophils # (Manual) PT INR APTT ABG pH 7.267 L ABG pO2 69.8 L ABG HCO3 ABG O2 Saturation 88.4 L ABG Base Excess ABG Hemoglobin 7.1 L Oxyhemoglobin 86.4 L Sodium Potassium Chloride Carbon Dioxide BUN Creatinine Glucose POC Glucose 157 H 128 H Lactic Acid Calcium Ionized Calcium Phosphorus Magnesium Total Bilirubin AST ALT Alkaline Phosphatase Ammonia Total Creatine Kinase CK-MB (CK-2) CK-MB (CK-2) Rel Index Total Protein Albumin Urine WBC (Auto) Vancomycin Trough Salicylates Acetaminophen Plasma/Serum Alcohol Crossmatch 12/19/19 12/19/19 12/19/19 03:37 03:37 05:25 WBC 31.3 H RBC 2.60 L Hgb 7.6 L Hct 23.0 L MCH RDW 19.4 H Plt Count 530 H Lymph % (Auto) [place] % (Auto) [place] # Baso # Seg Neutrophils % Seg Neuts % (Manual) Lymphocytes % (Manual) Monocytes % (Manual) Seg Neutrophils # Seg Neutrophils # Man Lymphocytes # (Manual) Monocytes # (Manual) Eosinophils # (Manual) Basophils # (Manual) PT INR APTT ABG pH ABG pO2 ABG HCO3 ABG O2 Saturation ABG Base Excess ABG Hemoglobin Oxyhemoglobin Sodium Potassium Chloride Carbon Dioxide 18 L BUN 36 H Creatinine Glucose 111 H POC Glucose 123 H Lactic Acid Calcium Ionized Calcium Phosphorus Magnesium Total Bilirubin AST ALT Alkaline Phosphatase Ammonia Total Creatine Kinase CK-MB (CK-2) CK-MB (CK-2) Rel Index Total Protein Albumin Urine WBC (Auto) Vancomycin Trough Salicylates Acetaminophen Plasma/Serum Alcohol Crossmatch 12/19/19 12/19/19 12/20/19 12:59 18:33 00:00 WBC RBC Hgb Hct MCH RDW Plt Count Lymph % (Auto) [place] % (Auto) [place] # Baso # Seg Neutrophils % Seg Neuts % (Manual) Lymphocytes % (Manual) Monocytes % (Manual) Seg Neutrophils # Seg Neutrophils # Man Lymphocytes # (Manual) Monocytes # (Manual) Eosinophils # (Manual) Basophils # (Manual) PT INR APTT ABG pH ABG pO2 ABG HCO3 ABG O2 Saturation ABG Base Excess ABG Hemoglobin Oxyhemoglobin Sodium Potassium Chloride Carbon Dioxide BUN Creatinine Glucose POC Glucose 130 H 118 H 135 H Lactic Acid Calcium Ionized Calcium Phosphorus Magnesium Total Bilirubin AST ALT Alkaline Phosphatase Ammonia Total Creatine Kinase CK-MB (CK-2) CK-MB (CK-2) Rel Index Total Protein Albumin Urine WBC (Auto) Vancomycin Trough Salicylates Acetaminophen Plasma/Serum Alcohol Crossmatch 12/20/19 12/20/19 12/20/19 05:46 12:31 18:07 WBC RBC Hgb Hct MCH RDW Plt Count Lymph % (Auto) [place] % (Auto) [place] # Baso # Seg Neutrophils % Seg Neuts % (Manual) Lymphocytes % (Manual) Monocytes % (Manual) Seg Neutrophils # Seg Neutrophils # Man Lymphocytes # (Manual) Monocytes # (Manual) Eosinophils # (Manual) Basophils # (Manual) PT INR APTT ABG pH ABG pO2 ABG HCO3 ABG O2 Saturation ABG Base Excess ABG Hemoglobin Oxyhemoglobin Sodium Potassium Chloride Carbon Dioxide BUN Creatinine Glucose POC Glucose 131 H 128 H 134 H Lactic Acid Calcium Ionized Calcium Phosphorus Magnesium Total Bilirubin AST ALT Alkaline Phosphatase Ammonia Total Creatine Kinase CK-MB (CK-2) CK-MB (CK-2) Rel Index Total Protein Albumin Urine WBC (Auto) Vancomycin Trough Salicylates Acetaminophen Plasma/Serum Alcohol Crossmatch 12/21/19 12/21/19 12/21/19 03:28 03:28 07:21 WBC 29.4 H RBC 2.30 L Hgb 6.8 L Hct 20.2 L MCH RDW 20.2 H Plt Count 746 H Lymph % (Auto) [place] % (Auto) [place] # Baso # Seg Neutrophils % Seg Neuts % (Manual) 85.0 H Lymphocytes % (Manual) 8.0 L Monocytes % (Manual) Seg Neutrophils # Seg Neutrophils # Man 25.0 H Lymphocytes # (Manual) Monocytes # (Manual) 1.5 H Eosinophils # (Manual) 0.6 H Basophils # (Manual) PT INR APTT ABG pH ABG pO2 ABG HCO3 ABG O2 Saturation ABG Base Excess ABG Hemoglobin Oxyhemoglobin Sodium Potassium Chloride Carbon Dioxide 17 L BUN 57 H Creatinine 1.4 H D Glucose POC Glucose 124 H Lactic Acid Calcium Ionized Calcium Phosphorus Magnesium Total Bilirubin AST ALT Alkaline Phosphatase Ammonia Total Creatine Kinase CK-MB (CK-2) CK-MB (CK-2) Rel Index Total Protein Albumin Urine WBC (Auto) Vancomycin Trough Salicylates Acetaminophen Plasma/Serum Alcohol Crossmatch 12/21/19 12/21/19 12/21/19 08:56 12:06 14:53 WBC RBC Hgb 7.2 L Hct 22.9 L MCH RDW Plt Count Lymph % (Auto) [place] % (Auto) [place] # Baso # Seg Neutrophils % Seg Neuts % (Manual) Lymphocytes % (Manual) Monocytes % (Manual) Seg Neutrophils # Seg Neutrophils # Man Lymphocytes # (Manual) Monocytes # (Manual) Eosinophils # (Manual) Basophils # (Manual) PT INR APTT ABG pH ABG pO2 ABG HCO3 ABG O2 Saturation ABG Base Excess ABG Hemoglobin Oxyhemoglobin Sodium Potassium Chloride Carbon Dioxide BUN Creatinine Glucose POC Glucose 116 H Lactic Acid Calcium Ionized Calcium Phosphorus Magnesium Total Bilirubin AST ALT Alkaline Phosphatase Ammonia Total Creatine Kinase CK-MB (CK-2) CK-MB (CK-2) Rel Index Total Protein Albumin Urine WBC (Auto) Vancomycin Trough 33.8 H Salicylates Acetaminophen Plasma/Serum Alcohol Crossmatch 12/21/19 12/21/19 12/21/19 14:54 17:27 23:49 WBC RBC Hgb Hct MCH RDW Plt Count Lymph % (Auto) [place] % (Auto) [place] # Baso # Seg Neutrophils % Seg Neuts % (Manual) Lymphocytes % (Manual) Monocytes % (Manual) Seg Neutrophils # Seg Neutrophils # Man Lymphocytes # (Manual) Monocytes # (Manual) Eosinophils # (Manual) Basophils # (Manual) PT INR APTT ABG pH ABG pO2 ABG HCO3 ABG O2 Saturation ABG Base Excess ABG Hemoglobin Oxyhemoglobin Sodium Potassium Chloride Carbon Dioxide BUN Creatinine Glucose POC Glucose 145 H 127 H Lactic Acid Calcium Ionized Calcium Phosphorus Magnesium Total Bilirubin AST ALT Alkaline Phosphatase Ammonia Total Creatine Kinase CK-MB (CK-2) CK-MB (CK-2) Rel Index Total Protein Albumin Urine WBC (Auto) Vancomycin Trough Salicylates Acetaminophen Plasma/Serum Alcohol Crossmatch See Detail 12/22/19 12/22/19 12/22/19 04:43 05:56 08:40 WBC RBC Hgb Hct MCH RDW Plt Count Lymph % (Auto) [place] % (Auto) [place] # Baso # Seg Neutrophils % Seg Neuts % (Manual) Lymphocytes % (Manual) Monocytes % (Manual) Seg Neutrophils # Seg Neutrophils # Man Lymphocytes # (Manual) Monocytes # (Manual) Eosinophils # (Manual) Basophils # (Manual) PT INR APTT ABG pH ABG pO2 75.6 L ABG HCO3 ABG O2 Saturation ABG Base Excess -2.6 L ABG Hemoglobin 6.8 L Oxyhemoglobin 94.6 L Sodium Potassium Chloride Carbon Dioxide 17 L BUN 60 H Creatinine 1.4 H Glucose 126 H POC Glucose 153 H Lactic Acid Calcium Ionized Calcium Phosphorus Magnesium Total Bilirubin AST ALT Alkaline Phosphatase Ammonia Total Creatine Kinase CK-MB (CK-2) CK-MB (CK-2) Rel Index Total Protein Albumin Urine WBC (Auto) Vancomycin Trough Salicylates Acetaminophen Plasma/Serum Alcohol Crossmatch 12/22/19 12/22/19 12/23/19 12:07 17:49 04:30 WBC 22.4 H RBC 2.68 L Hgb 7.6 L Hct 22.9 L MCH RDW 19.9 H Plt Count 998 H Lymph % (Auto) [place] % (Auto) [place] # Baso # Seg Neutrophils % Seg Neuts % (Manual) 88.0 H Lymphocytes % (Manual) 2.0 L Monocytes % (Manual) 9.0 H Seg Neutrophils # Seg Neutrophils # Man 19.7 H Lymphocytes # (Manual) 0.4 L Monocytes # (Manual) 2.0 H Eosinophils # (Manual) Basophils # (Manual) PT INR APTT ABG pH ABG pO2 ABG HCO3 ABG O2 Saturation ABG Base Excess ABG Hemoglobin Oxyhemoglobin Sodium Potassium Chloride Carbon Dioxide BUN Creatinine Glucose POC Glucose 140 H 116 H Lactic Acid Calcium Ionized Calcium Phosphorus Magnesium Total Bilirubin AST ALT Alkaline Phosphatase Ammonia Total Creatine Kinase CK-MB (CK-2) CK-MB (CK-2) Rel Index Total Protein Albumin Urine WBC (Auto) Vancomycin Trough Salicylates Acetaminophen Plasma/Serum Alcohol Crossmatch 12/23/19 12/23/19 12/23/19 04:30 12:00 18:06 WBC RBC Hgb Hct MCH RDW Plt Count Lymph % (Auto) [place] % (Auto) [place] # Baso # Seg Neutrophils % Seg Neuts % (Manual) Lymphocytes % (Manual) Monocytes % (Manual) Seg Neutrophils # Seg Neutrophils # Man Lymphocytes # (Manual) Monocytes # (Manual) Eosinophils # (Manual) Basophils # (Manual) PT INR APTT ABG pH ABG pO2 ABG HCO3 ABG O2 Saturation ABG Base Excess ABG Hemoglobin Oxyhemoglobin Sodium Potassium 5.2 H Chloride Carbon Dioxide 21 L BUN 69 H Creatinine 1.5 H Glucose 117 H POC Glucose 128 H 138 H Lactic Acid Calcium Ionized Calcium Phosphorus Magnesium Total Bilirubin AST ALT Alkaline Phosphatase Ammonia Total Creatine Kinase CK-MB (CK-2) CK-MB (CK-2) Rel Index Total Protein Albumin Urine WBC (Auto) Vancomycin Trough Salicylates Acetaminophen Plasma/Serum Alcohol Crossmatch 12/23/19 12/24/19 12/24/19 23:46 04:31 05:08 WBC RBC Hgb Hct MCH RDW Plt Count Lymph % (Auto) [place] % (Auto) [place] # Baso # Seg Neutrophils % Seg Neuts % (Manual) Lymphocytes % (Manual) Monocytes % (Manual) Seg Neutrophils # Seg Neutrophils # Man Lymphocytes # (Manual) Monocytes # (Manual) Eosinophils # (Manual) Basophils # (Manual) PT INR APTT ABG pH ABG pO2 ABG HCO3 ABG O2 Saturation ABG Base Excess ABG Hemoglobin Oxyhemoglobin Sodium Potassium 5.3 H Chloride 107.6 H Carbon Dioxide 20 L BUN 72 H Creatinine 1.6 H Glucose 120 H POC Glucose 120 H 140 H Lactic Acid Calcium Ionized Calcium Phosphorus Magnesium Total Bilirubin AST ALT Alkaline Phosphatase Ammonia Total Creatine Kinase CK-MB (CK-2) CK-MB (CK-2) Rel Index Total Protein Albumin Urine WBC (Auto) Vancomycin Trough Salicylates Acetaminophen Plasma/Serum Alcohol Crossmatch 12/24/19 12/24/19 12/25/19 11:58 17:49 03:47 WBC 36.2 H RBC 2.92 L Hgb 8.4 L Hct 26.1 L MCH RDW 20.2 H Plt Count 942 H Lymph % (Auto) [place] % (Auto) [place] # Baso # Seg Neutrophils % Seg Neuts % (Manual) 97.5 H Lymphocytes % (Manual) 1.0 L Monocytes % (Manual) Seg Neutrophils # Seg Neutrophils # Man 35.3 H Lymphocytes # (Manual) 0.4 L Monocytes # (Manual) Eosinophils # (Manual) Basophils # (Manual) PT INR APTT ABG pH ABG pO2 ABG HCO3 ABG O2 Saturation ABG Base Excess ABG Hemoglobin Oxyhemoglobin Sodium Potassium Chloride Carbon Dioxide BUN Creatinine Glucose POC Glucose 146 H 131 H Lactic Acid Calcium Ionized Calcium Phosphorus Magnesium Total Bilirubin AST ALT Alkaline Phosphatase Ammonia Total Creatine Kinase CK-MB (CK-2) CK-MB (CK-2) Rel Index Total Protein Albumin Urine WBC (Auto) Vancomycin Trough Salicylates Acetaminophen Plasma/Serum Alcohol Crossmatch 12/25/19 12/25/19 12/25/19 03:47 05:30 12:23 WBC RBC Hgb Hct MCH RDW Plt Count Lymph % (Auto) [place] % (Auto) [place] # Baso # Seg Neutrophils % Seg Neuts % (Manual) Lymphocytes % (Manual) Monocytes % (Manual) Seg Neutrophils # Seg Neutrophils # Man Lymphocytes # (Manual) Monocytes # (Manual) Eosinophils # (Manual) Basophils # (Manual) PT INR APTT ABG pH ABG pO2 ABG HCO3 ABG O2 Saturation ABG Base Excess ABG Hemoglobin Oxyhemoglobin Sodium Potassium Chloride Carbon Dioxide 15 L BUN 70 H Creatinine 1.7 H Glucose 153 H POC Glucose 169 H 135 H Lactic Acid Calcium Ionized Calcium Phosphorus Magnesium Total Bilirubin AST ALT Alkaline Phosphatase Ammonia Total Creatine Kinase CK-MB (CK-2) CK-MB (CK-2) Rel Index Total Protein Albumin Urine WBC (Auto) Vancomycin Trough Salicylates Acetaminophen Plasma/Serum Alcohol Crossmatch 12/25/19 12/25/19 12/26/19 17:37 23:29 09:47 WBC 22.1 H RBC 2.83 L Hgb 7.9 L Hct 25.5 L MCH RDW 20.0 H Plt Count 894 H Lymph % (Auto) [place] % (Auto) [place] # Baso # Seg Neutrophils % Seg Neuts % (Manual) Lymphocytes % (Manual) Monocytes % (Manual) Seg Neutrophils # Seg Neutrophils # Man Lymphocytes # (Manual) Monocytes # (Manual) Eosinophils # (Manual) Basophils # (Manual) PT INR APTT ABG pH ABG pO2 ABG HCO3 ABG O2 Saturation ABG Base Excess ABG Hemoglobin Oxyhemoglobin Sodium Potassium Chloride Carbon Dioxide BUN Creatinine Glucose POC Glucose 120 H 140 H Lactic Acid Calcium Ionized Calcium Phosphorus Magnesium Total Bilirubin AST ALT Alkaline Phosphatase Ammonia Total Creatine Kinase CK-MB (CK-2) CK-MB (CK-2) Rel Index Total Protein Albumin Urine WBC (Auto) Vancomycin Trough Salicylates Acetaminophen Plasma/Serum Alcohol Crossmatch 12/26/19 12/26/19 12/26/19 09:47 11:46 17:52 WBC RBC Hgb Hct MCH RDW Plt Count Lymph % (Auto) [place] % (Auto) [place] # Baso # Seg Neutrophils % Seg Neuts % (Manual) Lymphocytes % (Manual) Monocytes % (Manual) Seg Neutrophils # Seg Neutrophils # Man Lymphocytes # (Manual) Monocytes # (Manual) Eosinophils # (Manual) Basophils # (Manual) PT INR APTT ABG pH ABG pO2 ABG HCO3 ABG O2 Saturation ABG Base Excess ABG Hemoglobin Oxyhemoglobin Sodium Potassium Chloride Carbon Dioxide 18 L BUN 65 H Creatinine 1.4 H Glucose 132 H POC Glucose 110 H 145 H Lactic Acid Calcium Ionized Calcium Phosphorus Magnesium Total Bilirubin AST ALT Alkaline Phosphatase Ammonia Total Creatine Kinase CK-MB (CK-2) CK-MB (CK-2) Rel Index Total Protein Albumin Urine WBC (Auto) Vancomycin Trough Salicylates Acetaminophen Plasma/Serum Alcohol Crossmatch 12/27/19 12/27/19 12/27/19 00:01 03:42 03:42 WBC 18.0 H RBC 2.86 L Hgb 8.0 L Hct 25.2 L MCH RDW 19.2 H Plt Count 873 H Lymph % (Auto) 8.4 L [place] % (Auto) 7.5 H [place] # 1.4 H Baso # 0.2 H Seg Neutrophils % 82.2 H Seg Neuts % (Manual) Lymphocytes % (Manual) Monocytes % (Manual) Seg Neutrophils # 14.8 H Seg Neutrophils # Man Lymphocytes # (Manual) Monocytes # (Manual) Eosinophils # (Manual) Basophils # (Manual) PT INR APTT ABG pH ABG pO2 ABG HCO3 ABG O2 Saturation ABG Base Excess ABG Hemoglobin Oxyhemoglobin Sodium Potassium Chloride Carbon Dioxide BUN 73 H Creatinine 1.4 H Glucose 119 H POC Glucose 124 H Lactic Acid Calcium Ionized Calcium Phosphorus Magnesium Total Bilirubin AST ALT Alkaline Phosphatase Ammonia Total Creatine Kinase CK-MB (CK-2) CK-MB (CK-2) Rel Index Total Protein Albumin Urine WBC (Auto) Vancomycin Trough Salicylates Acetaminophen Plasma/Serum Alcohol Crossmatch 12/27/19 12/27/19 12/27/19 05:45 11:45 17:29 WBC RBC Hgb Hct MCH RDW Plt Count Lymph % (Auto) [place] % (Auto) [place] # Baso # Seg Neutrophils % Seg Neuts % (Manual) Lymphocytes % (Manual) Monocytes % (Manual) Seg Neutrophils # Seg Neutrophils # Man Lymphocytes # (Manual) Monocytes # (Manual) Eosinophils # (Manual) Basophils # (Manual) PT INR APTT ABG pH ABG pO2 ABG HCO3 ABG O2 Saturation ABG Base Excess ABG Hemoglobin Oxyhemoglobin Sodium Potassium Chloride Carbon Dioxide BUN Creatinine Glucose POC Glucose 131 H 123 H 134 H Lactic Acid Calcium Ionized Calcium Phosphorus Magnesium Total Bilirubin AST ALT Alkaline Phosphatase Ammonia Total Creatine Kinase CK-MB (CK-2) CK-MB (CK-2) Rel Index Total Protein Albumin Urine WBC (Auto) Vancomycin Trough Salicylates Acetaminophen Plasma/Serum Alcohol Crossmatch 12/28/19 12/28/19 12/28/19 00:12 05:14 11:53 WBC RBC Hgb Hct MCH RDW Plt Count Lymph % (Auto) [place] % (Auto) [place] # Baso # Seg Neutrophils % Seg Neuts % (Manual) Lymphocytes % (Manual) Monocytes % (Manual) Seg Neutrophils # Seg Neutrophils # Man Lymphocytes # (Manual) Monocytes # (Manual) Eosinophils # (Manual) Basophils # (Manual) PT INR APTT ABG pH ABG pO2 ABG HCO3 ABG O2 Saturation ABG Base Excess ABG Hemoglobin Oxyhemoglobin Sodium Potassium Chloride Carbon Dioxide BUN Creatinine Glucose POC Glucose 138 H 130 H 146 H Lactic Acid Calcium Ionized Calcium Phosphorus Magnesium Total Bilirubin AST ALT Alkaline Phosphatase Ammonia Total Creatine Kinase CK-MB (CK-2) CK-MB (CK-2) Rel Index Total Protein Albumin Urine WBC (Auto) Vancomycin Trough Salicylates Acetaminophen Plasma/Serum Alcohol Crossmatch 12/28/19 12/29/19 12/29/19 17:39 00:01 18:11 WBC RBC Hgb Hct MCH RDW Plt Count Lymph % (Auto) [place] % (Auto) [place] # Baso # Seg Neutrophils % Seg Neuts % (Manual) Lymphocytes % (Manual) Monocytes % (Manual) Seg Neutrophils # Seg Neutrophils # Man Lymphocytes # (Manual) Monocytes # (Manual) Eosinophils # (Manual) Basophils # (Manual) PT INR APTT ABG pH ABG pO2 ABG HCO3 ABG O2 Saturation ABG Base Excess ABG Hemoglobin Oxyhemoglobin Sodium Potassium Chloride Carbon Dioxide BUN Creatinine Glucose POC Glucose 117 H 139 H 130 H Lactic Acid Calcium Ionized Calcium Phosphorus Magnesium Total Bilirubin AST ALT Alkaline Phosphatase Ammonia Total Creatine Kinase CK-MB (CK-2) CK-MB (CK-2) Rel Index Total Protein Albumin Urine WBC (Auto) Vancomycin Trough Salicylates Acetaminophen Plasma/Serum Alcohol Crossmatch 12/29/19 12/30/19 12/30/19 23:09 00:02 01:06 WBC 16.7 H RBC 2.91 L Hgb 8.2 L Hct 25.4 L MCH RDW 18.7 H Plt Count 708 H Lymph % (Auto) 9.4 L [place] % (Auto) [place] # 0.9 H Baso # Seg Neutrophils % 83.5 H Seg Neuts % (Manual) Lymphocytes % (Manual) Monocytes % (Manual) Seg Neutrophils # 14.0 H Seg Neutrophils # Man Lymphocytes # (Manual) Monocytes # (Manual) Eosinophils # (Manual) Basophils # (Manual) PT INR APTT ABG pH ABG pO2 ABG HCO3 ABG O2 Saturation ABG Base Excess ABG Hemoglobin Oxyhemoglobin Sodium Potassium Chloride Carbon Dioxide BUN Creatinine Glucose POC Glucose 120 H 114 H Lactic Acid Calcium Ionized Calcium Phosphorus Magnesium Total Bilirubin AST ALT Alkaline Phosphatase Ammonia Total Creatine Kinase CK-MB (CK-2) CK-MB (CK-2) Rel Index Total Protein Albumin Urine WBC (Auto) Vancomycin Trough Salicylates Acetaminophen Plasma/Serum Alcohol Crossmatch 12/30/19 12/30/19 12/30/19 01:06 04:23 05:18 WBC RBC Hgb Hct MCH RDW Plt Count Lymph % (Auto) [place] % (Auto) [place] # Baso # Seg Neutrophils % Seg Neuts % (Manual) Lymphocytes % (Manual) Monocytes % (Manual) Seg Neutrophils # Seg Neutrophils # Man Lymphocytes # (Manual) Monocytes # (Manual) Eosinophils # (Manual) Basophils # (Manual) PT INR APTT ABG pH ABG pO2 ABG HCO3 ABG O2 Saturation ABG Base Excess ABG Hemoglobin 8.3 L Oxyhemoglobin Sodium Potassium Chloride Carbon Dioxide BUN 70 H Creatinine Glucose 122 H POC Glucose 130 H Lactic Acid Calcium Ionized Calcium Phosphorus Magnesium Total Bilirubin AST ALT Alkaline Phosphatase Ammonia Total Creatine Kinase CK-MB (CK-2) CK-MB (CK-2) Rel Index Total Protein Albumin Urine WBC (Auto) Vancomycin Trough Salicylates Acetaminophen Plasma/Serum Alcohol Crossmatch 12/30/19 12/30/19 12/30/19 05:40 12:17 17:43 WBC RBC Hgb Hct MCH RDW Plt Count Lymph % (Auto) [place] % (Auto) [place] # Baso # Seg Neutrophils % Seg Neuts % (Manual) Lymphocytes % (Manual) Monocytes % (Manual) Seg Neutrophils # Seg Neutrophils # Man Lymphocytes # (Manual) Monocytes # (Manual) Eosinophils # (Manual) Basophils # (Manual) PT INR APTT ABG pH ABG pO2 ABG HCO3 ABG O2 Saturation ABG Base Excess ABG Hemoglobin Oxyhemoglobin Sodium Potassium Chloride Carbon Dioxide BUN Creatinine Glucose POC Glucose 135 H 132 H 118 H Lactic Acid Calcium Ionized Calcium Phosphorus Magnesium Total Bilirubin AST ALT Alkaline Phosphatase Ammonia Total Creatine Kinase CK-MB (CK-2) CK-MB (CK-2) Rel Index Total Protein Albumin Urine WBC (Auto) Vancomycin Trough Salicylates Acetaminophen Plasma/Serum Alcohol Crossmatch 12/30/19 12/31/19 12/31/19 23:29 05:19 17:50 WBC RBC Hgb Hct MCH RDW Plt Count Lymph % (Auto) [place] % (Auto) [place] # Baso # Seg Neutrophils % Seg Neuts % (Manual) Lymphocytes % (Manual) Monocytes % (Manual) Seg Neutrophils # Seg Neutrophils # Man Lymphocytes # (Manual) Monocytes # (Manual) Eosinophils # (Manual) Basophils # (Manual) PT INR APTT ABG pH ABG pO2 ABG HCO3 ABG O2 Saturation ABG Base Excess ABG Hemoglobin Oxyhemoglobin Sodium Potassium Chloride Carbon Dioxide BUN Creatinine Glucose POC Glucose 114 H 109 H 116 H Lactic Acid Calcium Ionized Calcium Phosphorus Magnesium Total Bilirubin AST ALT Alkaline Phosphatase Ammonia Total Creatine Kinase CK-MB (CK-2) CK-MB (CK-2) Rel Index Total Protein Albumin Urine WBC (Auto) Vancomycin Trough Salicylates Acetaminophen Plasma/Serum Alcohol Crossmatch 01/01/20 01/01/20 01/01/20 00:10 05:19 12:02 WBC RBC Hgb Hct MCH RDW Plt Count Lymph % (Auto) [place] % (Auto) [place] # Baso # Seg Neutrophils % Seg Neuts % (Manual) Lymphocytes % (Manual) Monocytes % (Manual) Seg Neutrophils # Seg Neutrophils # Man Lymphocytes # (Manual) Monocytes # (Manual) Eosinophils # (Manual) Basophils # (Manual) PT INR APTT ABG pH ABG pO2 ABG HCO3 ABG O2 Saturation ABG Base Excess ABG Hemoglobin Oxyhemoglobin Sodium Potassium Chloride Carbon Dioxide BUN Creatinine Glucose POC Glucose 131 H 122 H 136 H Lactic Acid Calcium Ionized Calcium Phosphorus Magnesium Total Bilirubin AST ALT Alkaline Phosphatase Ammonia Total Creatine Kinase CK-MB (CK-2) CK-MB (CK-2) Rel Index Total Protein Albumin Urine WBC (Auto) Vancomycin Trough Salicylates Acetaminophen Plasma/Serum Alcohol Crossmatch 01/02/20 01/02/20 01/02/20 00:24 05:36 11:41 WBC RBC Hgb Hct MCH RDW Plt Count Lymph % (Auto) [place] % (Auto) [place] # Baso # Seg Neutrophils % Seg Neuts % (Manual) Lymphocytes % (Manual) Monocytes % (Manual) Seg Neutrophils # Seg Neutrophils # Man Lymphocytes # (Manual) Monocytes # (Manual) Eosinophils # (Manual) Basophils # (Manual) PT INR APTT ABG pH ABG pO2 ABG HCO3 ABG O2 Saturation ABG Base Excess ABG Hemoglobin Oxyhemoglobin Sodium Potassium Chloride Carbon Dioxide BUN Creatinine Glucose POC Glucose 119 H 109 H 125 H Lactic Acid Calcium Ionized Calcium Phosphorus Magnesium Total Bilirubin AST ALT Alkaline Phosphatase Ammonia Total Creatine Kinase CK-MB (CK-2) CK-MB (CK-2) Rel Index Total Protein Albumin Urine WBC (Auto) Vancomycin Trough Salicylates Acetaminophen Plasma/Serum Alcohol Crossmatch 01/02/20 01/03/20 01/03/20 17:49 05:29 12:13 WBC RBC Hgb Hct MCH RDW Plt Count Lymph % (Auto) [place] % (Auto) [place] # Baso # Seg Neutrophils % Seg Neuts % (Manual) Lymphocytes % (Manual) Monocytes % (Manual) Seg Neutrophils # Seg Neutrophils # Man Lymphocytes # (Manual) Monocytes # (Manual) Eosinophils # (Manual) Basophils # (Manual) PT INR APTT ABG pH ABG pO2 ABG HCO3 ABG O2 Saturation ABG Base Excess ABG Hemoglobin Oxyhemoglobin Sodium Potassium Chloride Carbon Dioxide BUN Creatinine Glucose POC Glucose 130 H 132 H 113 H Lactic Acid Calcium Ionized Calcium Phosphorus Magnesium Total Bilirubin AST ALT Alkaline Phosphatase Ammonia Total Creatine Kinase CK-MB (CK-2) CK-MB (CK-2) Rel Index Total Protein Albumin Urine WBC (Auto) Vancomycin Trough Salicylates Acetaminophen Plasma/Serum Alcohol Crossmatch 01/03/20 01/04/20 01/04/20 17:32 00:19 05:26 WBC RBC Hgb Hct MCH RDW Plt Count Lymph % (Auto) [place] % (Auto) [place] # Baso # Seg Neutrophils % Seg Neuts % (Manual) Lymphocytes % (Manual) Monocytes % (Manual) Seg Neutrophils # Seg Neutrophils # Man Lymphocytes # (Manual) Monocytes # (Manual) Eosinophils # (Manual) Basophils # (Manual) PT INR APTT ABG pH ABG pO2 ABG HCO3 ABG O2 Saturation ABG Base Excess ABG Hemoglobin Oxyhemoglobin Sodium Potassium Chloride Carbon Dioxide BUN Creatinine Glucose POC Glucose 127 H 141 H 129 H Lactic Acid Calcium Ionized Calcium Phosphorus Magnesium Total Bilirubin AST ALT Alkaline Phosphatase Ammonia Total Creatine Kinase CK-MB (CK-2) CK-MB (CK-2) Rel Index Total Protein Albumin Urine WBC (Auto) Vancomycin Trough Salicylates Acetaminophen Plasma/Serum Alcohol Crossmatch 01/04/20 01/04/20 01/05/20 11:39 17:29 05:22 WBC RBC Hgb Hct MCH RDW Plt Count Lymph % (Auto) [place] % (Auto) [place] # Baso # Seg Neutrophils % Seg Neuts % (Manual) Lymphocytes % (Manual) Monocytes % (Manual) Seg Neutrophils # Seg Neutrophils # Man Lymphocytes # (Manual) Monocytes # (Manual) Eosinophils # (Manual) Basophils # (Manual) PT INR APTT ABG pH ABG pO2 ABG HCO3 ABG O2 Saturation ABG Base Excess ABG Hemoglobin Oxyhemoglobin Sodium Potassium Chloride Carbon Dioxide BUN Creatinine Glucose POC Glucose 167 H 132 H 121 H Lactic Acid Calcium Ionized Calcium Phosphorus Magnesium Total Bilirubin AST ALT Alkaline Phosphatase Ammonia Total Creatine Kinase CK-MB (CK-2) CK-MB (CK-2) Rel Index Total Protein Albumin Urine WBC (Auto) Vancomycin Trough Salicylates Acetaminophen Plasma/Serum Alcohol Crossmatch 01/05/20 01/05/20 01/05/20 12:25 17:40 18:06 WBC RBC Hgb Hct MCH RDW Plt Count Lymph % (Auto) [place] % (Auto) [place] # Baso # Seg Neutrophils % Seg Neuts % (Manual) Lymphocytes % (Manual) Monocytes % (Manual) Seg Neutrophils # Seg Neutrophils # Man Lymphocytes # (Manual) Monocytes # (Manual) Eosinophils # (Manual) Basophils # (Manual) PT INR APTT ABG pH 7.472 H ABG pO2 99.2 H ABG HCO3 ABG O2 Saturation ABG Base Excess ABG Hemoglobin 7.8 L Oxyhemoglobin Sodium Potassium Chloride Carbon Dioxide BUN Creatinine Glucose POC Glucose 106 H 110 H Lactic Acid Calcium Ionized Calcium Phosphorus Magnesium Total Bilirubin AST ALT Alkaline Phosphatase Ammonia Total Creatine Kinase CK-MB (CK-2) CK-MB (CK-2) Rel Index Total Protein Albumin Urine WBC (Auto) Vancomycin Trough Salicylates Acetaminophen Plasma/Serum Alcohol Crossmatch 01/06/20 01/06/20 01/06/20 00:11 05:16 11:30 WBC RBC Hgb Hct MCH RDW Plt Count Lymph % (Auto) [place] % (Auto) [place] # Baso # Seg Neutrophils % Seg Neuts % (Manual) Lymphocytes % (Manual) Monocytes % (Manual) Seg Neutrophils # Seg Neutrophils # Man Lymphocytes # (Manual) Monocytes # (Manual) Eosinophils # (Manual) Basophils # (Manual) PT INR APTT ABG pH ABG pO2 ABG HCO3 ABG O2 Saturation ABG Base Excess ABG Hemoglobin Oxyhemoglobin Sodium Potassium Chloride Carbon Dioxide BUN Creatinine Glucose POC Glucose 108 H 124 H 125 H Lactic Acid Calcium Ionized Calcium Phosphorus Magnesium Total Bilirubin AST ALT Alkaline Phosphatase Ammonia Total Creatine Kinase CK-MB (CK-2) CK-MB (CK-2) Rel Index Total Protein Albumin Urine WBC (Auto) Vancomycin Trough Salicylates Acetaminophen Plasma/Serum Alcohol Crossmatch 01/06/20 01/06/20 01/07/20 17:53 23:51 04:12 WBC 16.5 H RBC 3.29 L Hgb 9.3 L Hct 28.1 L MCH RDW 18.2 H Plt Count 526 H Lymph % (Auto) 8.4 L [place] % (Auto) [place] # 1.0 H Baso # Seg Neutrophils % 84.4 H Seg Neuts % (Manual) Lymphocytes % (Manual) Monocytes % (Manual) Seg Neutrophils # 13.9 H Seg Neutrophils # Man Lymphocytes # (Manual) Monocytes # (Manual) Eosinophils # (Manual) Basophils # (Manual) PT INR APTT ABG pH ABG pO2 ABG HCO3 ABG O2 Saturation ABG Base Excess ABG Hemoglobin Oxyhemoglobin Sodium Potassium Chloride Carbon Dioxide BUN Creatinine Glucose POC Glucose 166 H 128 H Lactic Acid Calcium Ionized Calcium Phosphorus Magnesium Total Bilirubin AST ALT Alkaline Phosphatase Ammonia Total Creatine Kinase CK-MB (CK-2) CK-MB (CK-2) Rel Index Total Protein Albumin Urine WBC (Auto) Vancomycin Trough Salicylates Acetaminophen Plasma/Serum Alcohol Crossmatch 01/07/20 01/07/20 01/07/20 04:12 04:45 11:51 WBC RBC Hgb Hct MCH RDW Plt Count Lymph % (Auto) [place] % (Auto) [place] # Baso # Seg Neutrophils % Seg Neuts % (Manual) Lymphocytes % (Manual) Monocytes % (Manual) Seg Neutrophils # Seg Neutrophils # Man Lymphocytes # (Manual) Monocytes # (Manual) Eosinophils # (Manual) Basophils # (Manual) PT INR APTT ABG pH ABG pO2 ABG HCO3 ABG O2 Saturation ABG Base Excess ABG Hemoglobin Oxyhemoglobin Sodium 136 L Potassium Chloride Carbon Dioxide 21 L BUN 44 H Creatinine 0.6 L Glucose 124 H POC Glucose 134 H 138 H Lactic Acid Calcium Ionized Calcium Phosphorus Magnesium Total Bilirubin AST ALT Alkaline Phosphatase Ammonia Total Creatine Kinase CK-MB (CK-2) CK-MB (CK-2) Rel Index Total Protein Albumin Urine WBC (Auto) Vancomycin Trough Salicylates Acetaminophen Plasma/Serum Alcohol Crossmatch 01/07/20 01/08/20 01/08/20 17:36 00:33 05:29 WBC RBC Hgb Hct MCH RDW Plt Count Lymph % (Auto) [place] % (Auto) [place] # Baso # Seg Neutrophils % Seg Neuts % (Manual) Lymphocytes % (Manual) Monocytes % (Manual) Seg Neutrophils # Seg Neutrophils # Man Lymphocytes # (Manual) Monocytes # (Manual) Eosinophils # (Manual) Basophils # (Manual) PT INR APTT ABG pH ABG pO2 ABG HCO3 ABG O2 Saturation ABG Base Excess ABG Hemoglobin Oxyhemoglobin Sodium Potassium Chloride Carbon Dioxide BUN Creatinine Glucose POC Glucose 128 H 119 H 124 H Lactic Acid Calcium Ionized Calcium Phosphorus Magnesium Total Bilirubin AST ALT Alkaline Phosphatase Ammonia Total Creatine Kinase CK-MB (CK-2) CK-MB (CK-2) Rel Index Total Protein Albumin Urine WBC (Auto) Vancomycin Trough Salicylates Acetaminophen Plasma/Serum Alcohol Crossmatch 01/08/20 01/08/20 01/08/20 12:51 20:25 23:22 WBC RBC Hgb Hct MCH RDW Plt Count Lymph % (Auto) [place] % (Auto) [place] # Baso # Seg Neutrophils % Seg Neuts % (Manual) Lymphocytes % (Manual) Monocytes % (Manual) Seg Neutrophils # Seg Neutrophils # Man Lymphocytes # (Manual) Monocytes # (Manual) Eosinophils # (Manual) Basophils # (Manual) PT INR APTT ABG pH ABG pO2 132.2 H ABG HCO3 ABG O2 Saturation ABG Base Excess ABG Hemoglobin Oxyhemoglobin Sodium Potassium Chloride Carbon Dioxide BUN Creatinine Glucose POC Glucose 128 H 127 H Lactic Acid Calcium Ionized Calcium Phosphorus Magnesium Total Bilirubin AST ALT Alkaline Phosphatase Ammonia Total Creatine Kinase CK-MB (CK-2) CK-MB (CK-2) Rel Index Total Protein Albumin Urine WBC (Auto) Vancomycin Trough Salicylates Acetaminophen Plasma/Serum Alcohol Crossmatch 01/09/20 01/09/20 01/09/20 05:48 08:51 11:29 WBC RBC Hgb Hct MCH RDW Plt Count Lymph % (Auto) [place] % (Auto) [place] # Baso # Seg Neutrophils % Seg Neuts % (Manual) Lymphocytes % (Manual) Monocytes % (Manual) Seg Neutrophils # Seg Neutrophils # Man Lymphocytes # (Manual) Monocytes # (Manual) Eosinophils # (Manual) Basophils # (Manual) PT INR APTT ABG pH ABG pO2 94.3 H ABG HCO3 ABG O2 Saturation ABG Base Excess ABG Hemoglobin 9.5 L Oxyhemoglobin Sodium Potassium Chloride Carbon Dioxide BUN Creatinine Glucose POC Glucose 120 H 112 H Lactic Acid Calcium Ionized Calcium Phosphorus Magnesium Total Bilirubin AST ALT Alkaline Phosphatase Ammonia Total Creatine Kinase CK-MB (CK-2) CK-MB (CK-2) Rel Index Total Protein Albumin Urine WBC (Auto) Vancomycin Trough Salicylates Acetaminophen Plasma/Serum Alcohol Crossmatch 01/09/20 01/10/20 01/10/20 17:57 05:17 12:28 WBC RBC Hgb Hct MCH RDW Plt Count Lymph % (Auto) [place] % (Auto) [place] # Baso # Seg Neutrophils % Seg Neuts % (Manual) Lymphocytes % (Manual) Monocytes % (Manual) Seg Neutrophils # Seg Neutrophils # Man Lymphocytes # (Manual) Monocytes # (Manual) Eosinophils # (Manual) Basophils # (Manual) PT INR APTT ABG pH ABG pO2 ABG HCO3 ABG O2 Saturation ABG Base Excess ABG Hemoglobin Oxyhemoglobin Sodium Potassium Chloride Carbon Dioxide BUN Creatinine Glucose POC Glucose 122 H 115 H 116 H Lactic Acid Calcium Ionized Calcium Phosphorus Magnesium Total Bilirubin AST ALT Alkaline Phosphatase Ammonia Total Creatine Kinase CK-MB (CK-2) CK-MB (CK-2) Rel Index Total Protein Albumin Urine WBC (Auto) Vancomycin Trough Salicylates Acetaminophen Plasma/Serum Alcohol Crossmatch 01/10/20 01/10/20 01/11/20 18:25 23:47 06:05 WBC RBC Hgb Hct MCH RDW Plt Count Lymph % (Auto) [place] % (Auto) [place] # Baso # Seg Neutrophils % Seg Neuts % (Manual) Lymphocytes % (Manual) Monocytes % (Manual) Seg Neutrophils # Seg Neutrophils # Man Lymphocytes # (Manual) Monocytes # (Manual) Eosinophils # (Manual) Basophils # (Manual) PT INR APTT ABG pH ABG pO2 ABG HCO3 ABG O2 Saturation ABG Base Excess ABG Hemoglobin Oxyhemoglobin Sodium Potassium Chloride Carbon Dioxide BUN Creatinine Glucose POC Glucose 123 H 115 H 151 H Lactic Acid Calcium Ionized Calcium Phosphorus Magnesium Total Bilirubin AST ALT Alkaline Phosphatase Ammonia Total Creatine Kinase CK-MB (CK-2) CK-MB (CK-2) Rel Index Total Protein Albumin Urine WBC (Auto) Vancomycin Trough Salicylates Acetaminophen Plasma/Serum Alcohol Crossmatch 01/11/20 01/11/20 01/11/20 07:00 07:00 12:27 WBC 11.8 H RBC 3.40 L Hgb 9.4 L Hct 29.3 L MCH RDW 18.1 H Plt Count 549 H Lymph % (Auto) [place] % (Auto) 9.1 H [place] # 1.1 H Baso # Seg Neutrophils % 73.3 H Seg Neuts % (Manual) Lymphocytes % (Manual) Monocytes % (Manual) Seg Neutrophils # 8.7 H Seg Neutrophils # Man Lymphocytes # (Manual) Monocytes # (Manual) Eosinophils # (Manual) Basophils # (Manual) PT INR APTT ABG pH ABG pO2 ABG HCO3 ABG O2 Saturation ABG Base Excess ABG Hemoglobin Oxyhemoglobin Sodium 134 L Potassium Chloride 97.7 L Carbon Dioxide 21 L BUN 38 H Creatinine 0.5 L Glucose 168 H POC Glucose 117 H Lactic Acid Calcium 10.5 H Ionized Calcium Phosphorus Magnesium Total Bilirubin AST ALT Alkaline Phosphatase Ammonia Total Creatine Kinase CK-MB (CK-2) CK-MB (CK-2) Rel Index Total Protein Albumin Urine WBC (Auto) Vancomycin Trough Salicylates Acetaminophen Plasma/Serum Alcohol Crossmatch 01/11/20 01/12/20 01/12/20 18:19 00:53 05:24 WBC RBC Hgb Hct MCH RDW Plt Count Lymph % (Auto) [place] % (Auto) [place] # Baso # Seg Neutrophils % Seg Neuts % (Manual) Lymphocytes % (Manual) Monocytes % (Manual) Seg Neutrophils # Seg Neutrophils # Man Lymphocytes # (Manual) Monocytes # (Manual) Eosinophils # (Manual) Basophils # (Manual) PT INR APTT ABG pH ABG pO2 ABG HCO3 ABG O2 Saturation ABG Base Excess ABG Hemoglobin Oxyhemoglobin Sodium Potassium Chloride Carbon Dioxide BUN Creatinine Glucose POC Glucose 126 H 126 H 128 H Lactic Acid Calcium Ionized Calcium Phosphorus Magnesium Total Bilirubin AST ALT Alkaline Phosphatase Ammonia Total Creatine Kinase CK-MB (CK-2) CK-MB (CK-2) Rel Index Total Protein Albumin Urine WBC (Auto) Vancomycin Trough Salicylates Acetaminophen Plasma/Serum Alcohol Crossmatch 01/12/20 01/12/20 01/13/20 13:39 18:02 00:27 WBC RBC Hgb Hct MCH RDW Plt Count Lymph % (Auto) [place] % (Auto) [place] # Baso # Seg Neutrophils % Seg Neuts % (Manual) Lymphocytes % (Manual) Monocytes % (Manual) Seg Neutrophils # Seg Neutrophils # Man Lymphocytes # (Manual) Monocytes # (Manual) Eosinophils # (Manual) Basophils # (Manual) PT INR APTT ABG pH ABG pO2 ABG HCO3 ABG O2 Saturation ABG Base Excess ABG Hemoglobin Oxyhemoglobin Sodium Potassium Chloride Carbon Dioxide BUN Creatinine Glucose POC Glucose 146 H 125 H 131 H Lactic Acid Calcium Ionized Calcium Phosphorus Magnesium Total Bilirubin AST ALT Alkaline Phosphatase Ammonia Total Creatine Kinase CK-MB (CK-2) CK-MB (CK-2) Rel Index Total Protein Albumin Urine WBC (Auto) Vancomycin Trough Salicylates Acetaminophen Plasma/Serum Alcohol Crossmatch 01/13/20 01/13/20 01/13/20 05:44 11:54 17:18 WBC RBC Hgb Hct MCH RDW Plt Count Lymph % (Auto) [place] % (Auto) [place] # Baso # Seg Neutrophils % Seg Neuts % (Manual) Lymphocytes % (Manual) Monocytes % (Manual) Seg Neutrophils # Seg Neutrophils # Man Lymphocytes # (Manual) Monocytes # (Manual) Eosinophils # (Manual) Basophils # (Manual) PT INR APTT ABG pH ABG pO2 ABG HCO3 ABG O2 Saturation ABG Base Excess ABG Hemoglobin Oxyhemoglobin Sodium Potassium Chloride Carbon Dioxide BUN Creatinine Glucose POC Glucose 148 H 140 H 130 H Lactic Acid Calcium Ionized Calcium Phosphorus Magnesium Total Bilirubin AST ALT Alkaline Phosphatase Ammonia Total Creatine Kinase CK-MB (CK-2) CK-MB (CK-2) Rel Index Total Protein Albumin Urine WBC (Auto) Vancomycin Trough Salicylates Acetaminophen Plasma/Serum Alcohol Crossmatch 01/14/20 01/14/20 01/14/20 00:16 05:45 12:19 WBC RBC Hgb Hct MCH RDW Plt Count Lymph % (Auto) [place] % (Auto) [place] # Baso # Seg Neutrophils % Seg Neuts % (Manual) Lymphocytes % (Manual) Monocytes % (Manual) Seg Neutrophils # Seg Neutrophils # Man Lymphocytes # (Manual) Monocytes # (Manual) Eosinophils # (Manual) Basophils # (Manual) PT INR APTT ABG pH ABG pO2 ABG HCO3 ABG O2 Saturation ABG Base Excess ABG Hemoglobin Oxyhemoglobin Sodium Potassium Chloride Carbon Dioxide BUN Creatinine Glucose POC Glucose 125 H 146 H 147 H Lactic Acid Calcium Ionized Calcium Phosphorus Magnesium Total Bilirubin AST ALT Alkaline Phosphatase Ammonia Total Creatine Kinase CK-MB (CK-2) CK-MB (CK-2) Rel Index Total Protein Albumin Urine WBC (Auto) Vancomycin Trough Salicylates Acetaminophen Plasma/Serum Alcohol Crossmatch 01/14/20 01/14/20 01/15/20 18:10 23:54 05:14 WBC RBC Hgb Hct MCH RDW Plt Count Lymph % (Auto) [place] % (Auto) [place] # Baso # Seg Neutrophils % Seg Neuts % (Manual) Lymphocytes % (Manual) Monocytes % (Manual) Seg Neutrophils # Seg Neutrophils # Man Lymphocytes # (Manual) Monocytes # (Manual) Eosinophils # (Manual) Basophils # (Manual) PT INR APTT ABG pH ABG pO2 ABG HCO3 ABG O2 Saturation ABG Base Excess ABG Hemoglobin Oxyhemoglobin Sodium Potassium Chloride Carbon Dioxide BUN Creatinine Glucose POC Glucose 136 H 109 H 111 H Lactic Acid Calcium Ionized Calcium Phosphorus Magnesium Total Bilirubin AST ALT Alkaline Phosphatase Ammonia Total Creatine Kinase CK-MB (CK-2) CK-MB (CK-2) Rel Index Total Protein Albumin Urine WBC (Auto) Vancomycin Trough Salicylates Acetaminophen Plasma/Serum Alcohol Crossmatch 01/15/20 01/15/20 01/16/20 12:34 23:25 05:06 WBC RBC Hgb Hct MCH RDW Plt Count Lymph % (Auto) [place] % (Auto) [place] # Baso # Seg Neutrophils % Seg Neuts % (Manual) Lymphocytes % (Manual) Monocytes % (Manual) Seg Neutrophils # Seg Neutrophils # Man Lymphocytes # (Manual) Monocytes # (Manual) Eosinophils # (Manual) Basophils # (Manual) PT INR APTT ABG pH ABG pO2 ABG HCO3 ABG O2 Saturation ABG Base Excess ABG Hemoglobin Oxyhemoglobin Sodium Potassium Chloride Carbon Dioxide BUN Creatinine Glucose POC Glucose 131 H 120 H 121 H Lactic Acid Calcium Ionized Calcium Phosphorus Magnesium Total Bilirubin AST ALT Alkaline Phosphatase Ammonia Total Creatine Kinase CK-MB (CK-2) CK-MB (CK-2) Rel Index Total Protein Albumin Urine WBC (Auto) Vancomycin Trough Salicylates Acetaminophen Plasma/Serum Alcohol Crossmatch 01/16/20 01/16/20 01/17/20 12:15 23:46 05:32 WBC 13.6 H RBC 3.27 L Hgb 9.3 L Hct 28.5 L MCH RDW 17.0 H Plt Count 490 H Lymph % (Auto) 13.1 L [place] % (Auto) [place] # 1.0 H Baso # Seg Neutrophils % 77.5 H Seg Neuts % (Manual) Lymphocytes % (Manual) Monocytes % (Manual) Seg Neutrophils # 10.5 H Seg Neutrophils # Man Lymphocytes # (Manual) Monocytes # (Manual) Eosinophils # (Manual) Basophils # (Manual) PT INR APTT ABG pH ABG pO2 ABG HCO3 ABG O2 Saturation ABG Base Excess ABG Hemoglobin Oxyhemoglobin Sodium Potassium Chloride Carbon Dioxide BUN Creatinine Glucose POC Glucose 152 H 107 H Lactic Acid Calcium Ionized Calcium Phosphorus Magnesium Total Bilirubin AST ALT Alkaline Phosphatase Ammonia Total Creatine Kinase CK-MB (CK-2) CK-MB (CK-2) Rel Index Total Protein Albumin Urine WBC (Auto) Vancomycin Trough Salicylates Acetaminophen Plasma/Serum Alcohol Crossmatch 01/17/20 01/17/20 01/17/20 06:47 12:16 17:21 WBC RBC Hgb Hct MCH RDW Plt Count Lymph % (Auto) [place] % (Auto) [place] # Baso # Seg Neutrophils % Seg Neuts % (Manual) Lymphocytes % (Manual) Monocytes % (Manual) Seg Neutrophils # Seg Neutrophils # Man Lymphocytes # (Manual) Monocytes # (Manual) Eosinophils # (Manual) Basophils # (Manual) PT INR APTT ABG pH ABG pO2 ABG HCO3 ABG O2 Saturation ABG Base Excess ABG Hemoglobin Oxyhemoglobin Sodium Potassium Chloride Carbon Dioxide BUN Creatinine Glucose POC Glucose 112 H 145 H 150 H Lactic Acid Calcium Ionized Calcium Phosphorus Magnesium Total Bilirubin AST ALT Alkaline Phosphatase Ammonia Total Creatine Kinase CK-MB (CK-2) CK-MB (CK-2) Rel Index Total Protein Albumin Urine WBC (Auto) Vancomycin Trough Salicylates Acetaminophen Plasma/Serum Alcohol Crossmatch 01/17/20 01/18/20 01/18/20 23:34 05:47 12:43 WBC RBC Hgb Hct MCH RDW Plt Count Lymph % (Auto) [place] % (Auto) [place] # Baso # Seg Neutrophils % Seg Neuts % (Manual) Lymphocytes % (Manual) Monocytes % (Manual) Seg Neutrophils # Seg Neutrophils # Man Lymphocytes # (Manual) Monocytes # (Manual) Eosinophils # (Manual) Basophils # (Manual) PT INR APTT ABG pH ABG pO2 ABG HCO3 ABG O2 Saturation ABG Base Excess ABG Hemoglobin Oxyhemoglobin Sodium Potassium Chloride Carbon Dioxide BUN Creatinine Glucose POC Glucose 160 H 130 H 124 H Lactic Acid Calcium Ionized Calcium Phosphorus Magnesium Total Bilirubin AST ALT Alkaline Phosphatase Ammonia Total Creatine Kinase CK-MB (CK-2) CK-MB (CK-2) Rel Index Total Protein Albumin Urine WBC (Auto) Vancomycin Trough Salicylates Acetaminophen Plasma/Serum Alcohol Crossmatch 01/18/20 01/19/20 01/19/20 18:26 00:14 06:24 WBC RBC Hgb Hct MCH RDW Plt Count Lymph % (Auto) [place] % (Auto) [place] # Baso # Seg Neutrophils % Seg Neuts % (Manual) Lymphocytes % (Manual) Monocytes % (Manual) Seg Neutrophils # Seg Neutrophils # Man Lymphocytes # (Manual) Monocytes # (Manual) Eosinophils # (Manual) Basophils # (Manual) PT INR APTT ABG pH ABG pO2 ABG HCO3 ABG O2 Saturation ABG Base Excess ABG Hemoglobin Oxyhemoglobin Sodium Potassium Chloride Carbon Dioxide BUN Creatinine Glucose POC Glucose 119 H 114 H 144 H Lactic Acid Calcium Ionized Calcium Phosphorus Magnesium Total Bilirubin AST ALT Alkaline Phosphatase Ammonia Total Creatine Kinase CK-MB (CK-2) CK-MB (CK-2) Rel Index Total Protein Albumin Urine WBC (Auto) Vancomycin Trough Salicylates Acetaminophen Plasma/Serum Alcohol Crossmatch 01/19/20 01/19/20 01/20/20 12:24 17:50 12:06 WBC RBC Hgb Hct MCH RDW Plt Count Lymph % (Auto) [place] % (Auto) [place] # Baso # Seg Neutrophils % Seg Neuts % (Manual) Lymphocytes % (Manual) Monocytes % (Manual) Seg Neutrophils # Seg Neutrophils # Man Lymphocytes # (Manual) Monocytes # (Manual) Eosinophils # (Manual) Basophils # (Manual) PT INR APTT ABG pH ABG pO2 ABG HCO3 ABG O2 Saturation ABG Base Excess ABG Hemoglobin Oxyhemoglobin Sodium Potassium Chloride Carbon Dioxide BUN Creatinine Glucose POC Glucose 132 H 144 H 135 H Lactic Acid Calcium Ionized Calcium Phosphorus Magnesium Total Bilirubin AST ALT Alkaline Phosphatase Ammonia Total Creatine Kinase CK-MB (CK-2) CK-MB (CK-2) Rel Index Total Protein Albumin Urine WBC (Auto) Vancomycin Trough Salicylates Acetaminophen Plasma/Serum Alcohol Crossmatch 01/21/20 01/21/20 01/21/20 05:46 13:02 23:49 WBC RBC Hgb Hct MCH RDW Plt Count Lymph % (Auto) [place] % (Auto) [place] # Baso # Seg Neutrophils % Seg Neuts % (Manual) Lymphocytes % (Manual) Monocytes % (Manual) Seg Neutrophils # Seg Neutrophils # Man Lymphocytes # (Manual) Monocytes # (Manual) Eosinophils # (Manual) Basophils # (Manual) PT INR APTT ABG pH ABG pO2 ABG HCO3 ABG O2 Saturation ABG Base Excess ABG Hemoglobin Oxyhemoglobin Sodium Potassium Chloride Carbon Dioxide BUN Creatinine Glucose POC Glucose 114 H 136 H 120 H Lactic Acid Calcium Ionized Calcium Phosphorus Magnesium Total Bilirubin AST ALT Alkaline Phosphatase Ammonia Total Creatine Kinase CK-MB (CK-2) CK-MB (CK-2) Rel Index Total Protein Albumin Urine WBC (Auto) Vancomycin Trough Salicylates Acetaminophen Plasma/Serum Alcohol Crossmatch 01/22/20 01/22/20 01/22/20 05:41 11:44 16:31 WBC RBC Hgb Hct MCH RDW Plt Count Lymph % (Auto) [place] % (Auto) [place] # Baso # Seg Neutrophils % Seg Neuts % (Manual) Lymphocytes % (Manual) Monocytes % (Manual) Seg Neutrophils # Seg Neutrophils # Man Lymphocytes # (Manual) Monocytes # (Manual) Eosinophils # (Manual) Basophils # (Manual) PT INR APTT ABG pH ABG pO2 ABG HCO3 ABG O2 Saturation ABG Base Excess ABG Hemoglobin Oxyhemoglobin Sodium Potassium Chloride Carbon Dioxide BUN Creatinine Glucose POC Glucose 124 H 173 H 111 H Lactic Acid Calcium Ionized Calcium Phosphorus Magnesium Total Bilirubin AST ALT Alkaline Phosphatase Ammonia Total Creatine Kinase CK-MB (CK-2) CK-MB (CK-2) Rel Index Total Protein Albumin Urine WBC (Auto) Vancomycin Trough Salicylates Acetaminophen Plasma/Serum Alcohol Crossmatch 01/22/20 01/23/20 01/23/20 23:25 05:15 12:15 WBC RBC Hgb Hct MCH RDW Plt Count Lymph % (Auto) [place] % (Auto) [place] # Baso # Seg Neutrophils % Seg Neuts % (Manual) Lymphocytes % (Manual) Monocytes % (Manual) Seg Neutrophils # Seg Neutrophils # Man Lymphocytes # (Manual) Monocytes # (Manual) Eosinophils # (Manual) Basophils # (Manual) PT INR APTT ABG pH ABG pO2 ABG HCO3 ABG O2 Saturation ABG Base Excess ABG Hemoglobin Oxyhemoglobin Sodium Potassium Chloride Carbon Dioxide BUN Creatinine Glucose POC Glucose 134 H 117 H 129 H Lactic Acid Calcium Ionized Calcium Phosphorus Magnesium Total Bilirubin AST ALT Alkaline Phosphatase Ammonia Total Creatine Kinase CK-MB (CK-2) CK-MB (CK-2) Rel Index Total Protein Albumin Urine WBC (Auto) Vancomycin Trough Salicylates Acetaminophen Plasma/Serum Alcohol Crossmatch 01/23/20 01/23/20 01/23/20 16:58 21:17 23:47 WBC RBC Hgb Hct MCH RDW Plt Count Lymph % (Auto) [place] % (Auto) [place] # Baso # Seg Neutrophils % Seg Neuts % (Manual) Lymphocytes % (Manual) Monocytes % (Manual) Seg Neutrophils # Seg Neutrophils # Man Lymphocytes # (Manual) Monocytes # (Manual) Eosinophils # (Manual) Basophils # (Manual) PT INR APTT ABG pH ABG pO2 ABG HCO3 ABG O2 Saturation ABG Base Excess ABG Hemoglobin Oxyhemoglobin Sodium Potassium Chloride Carbon Dioxide BUN Creatinine Glucose POC Glucose 156 H 185 H 156 H Lactic Acid Calcium Ionized Calcium Phosphorus Magnesium Total Bilirubin AST ALT Alkaline Phosphatase Ammonia Total Creatine Kinase CK-MB (CK-2) CK-MB (CK-2) Rel Index Total Protein Albumin Urine WBC (Auto) Vancomycin Trough Salicylates Acetaminophen Plasma/Serum Alcohol Crossmatch 01/24/20 01/24/20 01/24/20 04:47 04:47 05:59 WBC 17.8 H RBC 3.60 L Hgb Hct MCH RDW 16.2 H Plt Count 688 H Lymph % (Auto) 11.8 L [place] % (Auto) 7.5 H [place] # 1.3 H Baso # Seg Neutrophils % 79.9 H Seg Neuts % (Manual) Lymphocytes % (Manual) Monocytes % (Manual) Seg Neutrophils # 14.2 H Seg Neutrophils # Man Lymphocytes # (Manual) Monocytes # (Manual) Eosinophils # (Manual) Basophils # (Manual) PT INR APTT ABG pH ABG pO2 ABG HCO3 ABG O2 Saturation ABG Base Excess ABG Hemoglobin Oxyhemoglobin Sodium 131 L Potassium Chloride 91.2 L Carbon Dioxide BUN 22 H Creatinine 0.3 L Glucose 123 H POC Glucose 147 H Lactic Acid Calcium 10.9 H Ionized Calcium Phosphorus Magnesium Total Bilirubin AST ALT Alkaline Phosphatase Ammonia Total Creatine Kinase CK-MB (CK-2) CK-MB (CK-2) Rel Index Total Protein Albumin Urine WBC (Auto) Vancomycin Trough Salicylates Acetaminophen Plasma/Serum Alcohol Crossmatch 01/24/20 01/24/20 01/25/20 11:47 16:45 00:18 WBC RBC Hgb Hct MCH RDW Plt Count Lymph % (Auto) [place] % (Auto) [place] # Baso # Seg Neutrophils % Seg Neuts % (Manual) Lymphocytes % (Manual) Monocytes % (Manual) Seg Neutrophils # Seg Neutrophils # Man Lymphocytes # (Manual) Monocytes # (Manual) Eosinophils # (Manual) Basophils # (Manual) PT INR APTT ABG pH ABG pO2 ABG HCO3 ABG O2 Saturation ABG Base Excess ABG Hemoglobin Oxyhemoglobin Sodium Potassium Chloride Carbon Dioxide BUN Creatinine Glucose POC Glucose 114 H 108 H 119 H Lactic Acid Calcium Ionized Calcium Phosphorus Magnesium Total Bilirubin AST ALT Alkaline Phosphatase Ammonia Total Creatine Kinase CK-MB (CK-2) CK-MB (CK-2) Rel Index Total Protein Albumin Urine WBC (Auto) Vancomycin Trough Salicylates Acetaminophen Plasma/Serum Alcohol Crossmatch 01/25/20 01/25/20 01/25/20 07:18 11:58 16:56 WBC RBC Hgb Hct MCH RDW Plt Count Lymph % (Auto) [place] % (Auto) [place] # Baso # Seg Neutrophils % Seg Neuts % (Manual) Lymphocytes % (Manual) Monocytes % (Manual) Seg Neutrophils # Seg Neutrophils # Man Lymphocytes # (Manual) Monocytes # (Manual) Eosinophils # (Manual) Basophils # (Manual) PT INR APTT ABG pH ABG pO2 ABG HCO3 ABG O2 Saturation ABG Base Excess ABG Hemoglobin Oxyhemoglobin Sodium Potassium Chloride Carbon Dioxide BUN Creatinine Glucose POC Glucose 136 H 136 H 147 H Lactic Acid Calcium Ionized Calcium Phosphorus Magnesium Total Bilirubin AST ALT Alkaline Phosphatase Ammonia Total Creatine Kinase CK-MB (CK-2) CK-MB (CK-2) Rel Index Total Protein Albumin Urine WBC (Auto) Vancomycin Trough Salicylates Acetaminophen Plasma/Serum Alcohol Crossmatch 01/26/20 01/26/20 01/26/20 00:29 05:59 05:59 WBC 12.8 H RBC Hgb Hct MCH RDW 16.4 H Plt Count 743 H Lymph % (Auto) [place] % (Auto) [place] # 0.9 H Baso # Seg Neutrophils % 76.2 H Seg Neuts % (Manual) Lymphocytes % (Manual) Monocytes % (Manual) Seg Neutrophils # 9.8 H Seg Neutrophils # Man Lymphocytes # (Manual) Monocytes # (Manual) Eosinophils # (Manual) Basophils # (Manual) PT INR APTT ABG pH ABG pO2 ABG HCO3 ABG O2 Saturation ABG Base Excess ABG Hemoglobin Oxyhemoglobin Sodium 132 L Potassium Chloride 90.9 L Carbon Dioxide BUN 23 H Creatinine 0.4 L Glucose 122 H POC Glucose 107 H Lactic Acid Calcium 11.0 H Ionized Calcium Phosphorus Magnesium Total Bilirubin AST ALT Alkaline Phosphatase Ammonia Total Creatine Kinase CK-MB (CK-2) CK-MB (CK-2) Rel Index Total Protein Albumin Urine WBC (Auto) Vancomycin Trough Salicylates Acetaminophen Plasma/Serum Alcohol Crossmatch 01/26/20 01/26/20 01/26/20 06:27 12:06 16:49 WBC RBC Hgb Hct MCH RDW Plt Count Lymph % (Auto) [place] % (Auto) [place] # Baso # Seg Neutrophils % Seg Neuts % (Manual) Lymphocytes % (Manual) Monocytes % (Manual) Seg Neutrophils # Seg Neutrophils # Man Lymphocytes # (Manual) Monocytes # (Manual) Eosinophils # (Manual) Basophils # (Manual) PT INR APTT ABG pH ABG pO2 ABG HCO3 ABG O2 Saturation ABG Base Excess ABG Hemoglobin Oxyhemoglobin Sodium Potassium Chloride Carbon Dioxide BUN Creatinine Glucose POC Glucose 132 H 132 H 110 H Lactic Acid Calcium Ionized Calcium Phosphorus Magnesium Total Bilirubin AST ALT Alkaline Phosphatase Ammonia Total Creatine Kinase CK-MB (CK-2) CK-MB (CK-2) Rel Index Total Protein Albumin Urine WBC (Auto) Vancomycin Trough Salicylates Acetaminophen Plasma/Serum Alcohol Crossmatch 01/27/20 01/27/20 01/27/20 00:08 11:49 16:24 WBC RBC Hgb Hct MCH RDW Plt Count Lymph % (Auto) [place] % (Auto) [place] # Baso # Seg Neutrophils % Seg Neuts % (Manual) Lymphocytes % (Manual) Monocytes % (Manual) Seg Neutrophils # Seg Neutrophils # Man Lymphocytes # (Manual) Monocytes # (Manual) Eosinophils # (Manual) Basophils # (Manual) PT INR APTT ABG pH ABG pO2 ABG HCO3 ABG O2 Saturation ABG Base Excess ABG Hemoglobin Oxyhemoglobin Sodium Potassium Chloride Carbon Dioxide BUN Creatinine Glucose POC Glucose 107 H 119 H 129 H Lactic Acid Calcium Ionized Calcium Phosphorus Magnesium Total Bilirubin AST ALT Alkaline Phosphatase Ammonia Total Creatine Kinase CK-MB (CK-2) CK-MB (CK-2) Rel Index Total Protein Albumin Urine WBC (Auto) Vancomycin Trough Salicylates Acetaminophen Plasma/Serum Alcohol Crossmatch 01/27/20 01/28/20 01/28/20 18:28 01:00 06:22 WBC RBC Hgb Hct MCH RDW Plt Count Lymph % (Auto) [place] % (Auto) [place] # Baso # Seg Neutrophils % Seg Neuts % (Manual) Lymphocytes % (Manual) Monocytes % (Manual) Seg Neutrophils # Seg Neutrophils # Man Lymphocytes # (Manual) Monocytes # (Manual) Eosinophils # (Manual) Basophils # (Manual) PT INR APTT ABG pH ABG pO2 ABG HCO3 ABG O2 Saturation ABG Base Excess ABG Hemoglobin Oxyhemoglobin Sodium Potassium Chloride Carbon Dioxide BUN Creatinine Glucose POC Glucose 126 H 121 H 114 H Lactic Acid Calcium Ionized Calcium Phosphorus Magnesium Total Bilirubin AST ALT Alkaline Phosphatase Ammonia Total Creatine Kinase CK-MB (CK-2) CK-MB (CK-2) Rel Index Total Protein Albumin Urine WBC (Auto) Vancomycin Trough Salicylates Acetaminophen Plasma/Serum Alcohol Crossmatch 01/28/20 01/28/20 01/29/20 11:47 18:00 00:05 WBC RBC Hgb Hct MCH RDW Plt Count Lymph % (Auto) [place] % (Auto) [place] # Baso # Seg Neutrophils % Seg Neuts % (Manual) Lymphocytes % (Manual) Monocytes % (Manual) Seg Neutrophils # Seg Neutrophils # Man Lymphocytes # (Manual) Monocytes # (Manual) Eosinophils # (Manual) Basophils # (Manual) PT INR APTT ABG pH ABG pO2 ABG HCO3 ABG O2 Saturation ABG Base Excess ABG Hemoglobin Oxyhemoglobin Sodium Potassium Chloride Carbon Dioxide BUN Creatinine Glucose POC Glucose 106 H 117 H 127 H Lactic Acid Calcium Ionized Calcium Phosphorus Magnesium Total Bilirubin AST ALT Alkaline Phosphatase Ammonia Total Creatine Kinase CK-MB (CK-2) CK-MB (CK-2) Rel Index Total Protein Albumin Urine WBC (Auto) Vancomycin Trough Salicylates Acetaminophen Plasma/Serum Alcohol Crossmatch 01/29/20 01/29/20 01/29/20 06:04 11:40 16:38 WBC RBC Hgb Hct MCH RDW Plt Count Lymph % (Auto) [place] % (Auto) [place] # Baso # Seg Neutrophils % Seg Neuts % (Manual) Lymphocytes % (Manual) Monocytes % (Manual) Seg Neutrophils # Seg Neutrophils # Man Lymphocytes # (Manual) Monocytes # (Manual) Eosinophils # (Manual) Basophils # (Manual) PT INR APTT ABG pH ABG pO2 ABG HCO3 ABG O2 Saturation ABG Base Excess ABG Hemoglobin Oxyhemoglobin Sodium Potassium Chloride Carbon Dioxide BUN Creatinine Glucose POC Glucose 147 H 139 H 143 H Lactic Acid Calcium Ionized Calcium Phosphorus Magnesium Total Bilirubin AST ALT Alkaline Phosphatase Ammonia Total Creatine Kinase CK-MB (CK-2) CK-MB (CK-2) Rel Index Total Protein Albumin Urine WBC (Auto) Vancomycin Trough Salicylates Acetaminophen Plasma/Serum Alcohol Crossmatch 01/29/20 01/30/20 01/30/20 23:46 06:43 12:07 WBC RBC Hgb Hct MCH RDW Plt Count Lymph % (Auto) [place] % (Auto) [place] # Baso # Seg Neutrophils % Seg Neuts % (Manual) Lymphocytes % (Manual) Monocytes % (Manual) Seg Neutrophils # Seg Neutrophils # Man Lymphocytes # (Manual) Monocytes # (Manual) Eosinophils # (Manual) Basophils # (Manual) PT INR APTT ABG pH ABG pO2 ABG HCO3 ABG O2 Saturation ABG Base Excess ABG Hemoglobin Oxyhemoglobin Sodium Potassium Chloride Carbon Dioxide BUN Creatinine Glucose POC Glucose 122 H 122 H 134 H Lactic Acid Calcium Ionized Calcium Phosphorus Magnesium Total Bilirubin AST ALT Alkaline Phosphatase Ammonia Total Creatine Kinase CK-MB (CK-2) CK-MB (CK-2) Rel Index Total Protein Albumin Urine WBC (Auto) Vancomycin Trough Salicylates Acetaminophen Plasma/Serum Alcohol Crossmatch 01/30/20 01/31/20 01/31/20 17:59 00:52 05:54 WBC RBC Hgb Hct MCH RDW Plt Count Lymph % (Auto) [place] % (Auto) [place] # Baso # Seg Neutrophils % Seg Neuts % (Manual) Lymphocytes % (Manual) Monocytes % (Manual) Seg Neutrophils # Seg Neutrophils # Man Lymphocytes # (Manual) Monocytes # (Manual) Eosinophils # (Manual) Basophils # (Manual) PT INR APTT ABG pH ABG pO2 ABG HCO3 ABG O2 Saturation ABG Base Excess ABG Hemoglobin Oxyhemoglobin Sodium Potassium Chloride Carbon Dioxide BUN Creatinine Glucose POC Glucose 116 H 127 H 127 H Lactic Acid Calcium Ionized Calcium Phosphorus Magnesium Total Bilirubin AST ALT Alkaline Phosphatase Ammonia Total Creatine Kinase CK-MB (CK-2) CK-MB (CK-2) Rel Index Total Protein Albumin Urine WBC (Auto) Vancomycin Trough Salicylates Acetaminophen Plasma/Serum Alcohol Crossmatch 01/31/20 02/01/20 02/01/20 12:20 00:48 12:21 WBC RBC Hgb Hct MCH RDW Plt Count Lymph % (Auto) [place] % (Auto) [place] # Baso # Seg Neutrophils % Seg Neuts % (Manual) Lymphocytes % (Manual) Monocytes % (Manual) Seg Neutrophils # Seg Neutrophils # Man Lymphocytes # (Manual) Monocytes # (Manual) Eosinophils # (Manual) Basophils # (Manual) PT INR APTT ABG pH ABG pO2 ABG HCO3 ABG O2 Saturation ABG Base Excess ABG Hemoglobin Oxyhemoglobin Sodium Potassium Chloride Carbon Dioxide BUN Creatinine Glucose POC Glucose 126 H 154 H 123 H Lactic Acid Calcium Ionized Calcium Phosphorus Magnesium Total Bilirubin AST ALT Alkaline Phosphatase Ammonia Total Creatine Kinase CK-MB (CK-2) CK-MB (CK-2) Rel Index Total Protein Albumin Urine WBC (Auto) Vancomycin Trough Salicylates Acetaminophen Plasma/Serum Alcohol Crossmatch 02/01/20 02/02/20 02/02/20 23:58 06:08 11:50 WBC RBC Hgb Hct MCH RDW Plt Count Lymph % (Auto) [place] % (Auto) [place] # Baso # Seg Neutrophils % Seg Neuts % (Manual) Lymphocytes % (Manual) Monocytes % (Manual) Seg Neutrophils # Seg Neutrophils # Man Lymphocytes # (Manual) Monocytes # (Manual) Eosinophils # (Manual) Basophils # (Manual) PT INR APTT ABG pH ABG pO2 ABG HCO3 ABG O2 Saturation ABG Base Excess ABG Hemoglobin Oxyhemoglobin Sodium Potassium Chloride Carbon Dioxide BUN Creatinine Glucose POC Glucose 125 H 144 H 131 H Lactic Acid Calcium Ionized Calcium Phosphorus Magnesium Total Bilirubin AST ALT Alkaline Phosphatase Ammonia Total Creatine Kinase CK-MB (CK-2) CK-MB (CK-2) Rel Index Total Protein Albumin Urine WBC (Auto) Vancomycin Trough Salicylates Acetaminophen Plasma/Serum Alcohol Crossmatch 02/02/20 02/03/20 02/03/20 17:53 00:14 05:47 WBC RBC Hgb Hct MCH RDW Plt Count Lymph % (Auto) [place] % (Auto) [place] # Baso # Seg Neutrophils % Seg Neuts % (Manual) Lymphocytes % (Manual) Monocytes % (Manual) Seg Neutrophils # Seg Neutrophils # Man Lymphocytes # (Manual) Monocytes # (Manual) Eosinophils # (Manual) Basophils # (Manual) PT INR APTT ABG pH ABG pO2 ABG HCO3 ABG O2 Saturation ABG Base Excess ABG Hemoglobin Oxyhemoglobin Sodium Potassium Chloride Carbon Dioxide BUN Creatinine Glucose POC Glucose 108 H 122 H 118 H Lactic Acid Calcium Ionized Calcium Phosphorus Magnesium Total Bilirubin AST ALT Alkaline Phosphatase Ammonia Total Creatine Kinase CK-MB (CK-2) CK-MB (CK-2) Rel Index Total Protein Albumin Urine WBC (Auto) Vancomycin Trough Salicylates Acetaminophen Plasma/Serum Alcohol Crossmatch 02/03/20 02/03/20 02/03/20 05:59 05:59 11:49 WBC RBC 3.48 L Hgb Hct 29.9 L MCH RDW 16.2 H Plt Count 707 H Lymph % (Auto) [place] % (Auto) 9.3 H [place] # 0.9 H Baso # Seg Neutrophils % Seg Neuts % (Manual) Lymphocytes % (Manual) Monocytes % (Manual) Seg Neutrophils # Seg Neutrophils # Man Lymphocytes # (Manual) Monocytes # (Manual) Eosinophils # (Manual) Basophils # (Manual) PT INR APTT ABG pH ABG pO2 ABG HCO3 ABG O2 Saturation ABG Base Excess ABG Hemoglobin Oxyhemoglobin Sodium 136 L Potassium Chloride 93.4 L Carbon Dioxide BUN 20 H Creatinine 0.5 L Glucose 101 H POC Glucose 133 H Lactic Acid Calcium 10.8 H Ionized Calcium Phosphorus Magnesium Total Bilirubin AST ALT Alkaline Phosphatase Ammonia Total Creatine Kinase CK-MB (CK-2) CK-MB (CK-2) Rel Index Total Protein Albumin Urine WBC (Auto) Vancomycin Trough Salicylates Acetaminophen Plasma/Serum Alcohol Crossmatch 02/03/20 02/04/20 02/04/20 23:19 05:37 23:56 WBC RBC Hgb Hct MCH RDW Plt Count Lymph % (Auto) [place] % (Auto) [place] # Baso # Seg Neutrophils % Seg Neuts % (Manual) Lymphocytes % (Manual) Monocytes % (Manual) Seg Neutrophils # Seg Neutrophils # Man Lymphocytes # (Manual) Monocytes # (Manual) Eosinophils # (Manual) Basophils # (Manual) PT INR APTT ABG pH ABG pO2 ABG HCO3 ABG O2 Saturation ABG Base Excess ABG Hemoglobin Oxyhemoglobin Sodium Potassium Chloride Carbon Dioxide BUN Creatinine Glucose POC Glucose 135 H 108 H 158 H Lactic Acid Calcium Ionized Calcium Phosphorus Magnesium Total Bilirubin AST ALT Alkaline Phosphatase Ammonia Total Creatine Kinase CK-MB (CK-2) CK-MB (CK-2) Rel Index Total Protein Albumin Urine WBC (Auto) Vancomycin Trough Salicylates Acetaminophen Plasma/Serum Alcohol Crossmatch 02/05/20 02/05/20 02/06/20 05:33 23:24 05:50 WBC RBC Hgb Hct MCH RDW Plt Count Lymph % (Auto) [place] % (Auto) [place] # Baso # Seg Neutrophils % Seg Neuts % (Manual) Lymphocytes % (Manual) Monocytes % (Manual) Seg Neutrophils # Seg Neutrophils # Man Lymphocytes # (Manual) Monocytes # (Manual) Eosinophils # (Manual) Basophils # (Manual) PT INR APTT ABG pH ABG pO2 ABG HCO3 ABG O2 Saturation ABG Base Excess ABG Hemoglobin Oxyhemoglobin Sodium Potassium Chloride Carbon Dioxide BUN Creatinine Glucose POC Glucose 152 H 158 H 110 H Lactic Acid Calcium Ionized Calcium Phosphorus Magnesium Total Bilirubin AST ALT Alkaline Phosphatase Ammonia Total Creatine Kinase CK-MB (CK-2) CK-MB (CK-2) Rel Index Total Protein Albumin Urine WBC (Auto) Vancomycin Trough Salicylates Acetaminophen Plasma/Serum Alcohol Crossmatch 02/06/20 02/07/20 02/07/20 16:03 00:13 05:27 WBC RBC Hgb Hct MCH RDW Plt Count Lymph % (Auto) [place] % (Auto) [place] # Baso # Seg Neutrophils % Seg Neuts % (Manual) Lymphocytes % (Manual) Monocytes % (Manual) Seg Neutrophils # Seg Neutrophils # Man Lymphocytes # (Manual) Monocytes # (Manual) Eosinophils # (Manual) Basophils # (Manual) PT INR APTT ABG pH ABG pO2 ABG HCO3 ABG O2 Saturation ABG Base Excess ABG Hemoglobin Oxyhemoglobin Sodium Potassium Chloride Carbon Dioxide BUN Creatinine Glucose POC Glucose 130 H 115 H 115 H Lactic Acid Calcium Ionized Calcium Phosphorus Magnesium Total Bilirubin AST ALT Alkaline Phosphatase Ammonia Total Creatine Kinase CK-MB (CK-2) CK-MB (CK-2) Rel Index Total Protein Albumin Urine WBC (Auto) Vancomycin Trough Salicylates Acetaminophen Plasma/Serum Alcohol Crossmatch 02/07/20 02/07/20 02/08/20 11:42 17:23 00:37 WBC RBC Hgb Hct MCH RDW Plt Count Lymph % (Auto) [place] % (Auto) [place] # Baso # Seg Neutrophils % Seg Neuts % (Manual) Lymphocytes % (Manual) Monocytes % (Manual) Seg Neutrophils # Seg Neutrophils # Man Lymphocytes # (Manual) Monocytes # (Manual) Eosinophils # (Manual) Basophils # (Manual) PT INR APTT ABG pH ABG pO2 ABG HCO3 ABG O2 Saturation ABG Base Excess ABG Hemoglobin Oxyhemoglobin Sodium Potassium Chloride Carbon Dioxide BUN Creatinine Glucose POC Glucose 113 H 114 H 136 H Lactic Acid Calcium Ionized Calcium Phosphorus Magnesium Total Bilirubin AST ALT Alkaline Phosphatase Ammonia Total Creatine Kinase CK-MB (CK-2) CK-MB (CK-2) Rel Index Total Protein Albumin Urine WBC (Auto) Vancomycin Trough Salicylates Acetaminophen Plasma/Serum Alcohol Crossmatch 02/08/20 02/08/20 02/08/20 08:52 11:42 17:02 WBC RBC Hgb Hct MCH RDW Plt Count Lymph % (Auto) [place] % (Auto) [place] # Baso # Seg Neutrophils % Seg Neuts % (Manual) Lymphocytes % (Manual) Monocytes % (Manual) Seg Neutrophils # Seg Neutrophils # Man Lymphocytes # (Manual) Monocytes # (Manual) Eosinophils # (Manual) Basophils # (Manual) PT INR APTT ABG pH ABG pO2 ABG HCO3 ABG O2 Saturation ABG Base Excess ABG Hemoglobin Oxyhemoglobin Sodium 136 L Potassium Chloride 95.7 L Carbon Dioxide BUN 21 H Creatinine 0.4 L Glucose POC Glucose 128 H 145 H Lactic Acid Calcium 10.4 H Ionized Calcium Phosphorus Magnesium Total Bilirubin AST ALT Alkaline Phosphatase Ammonia Total Creatine Kinase CK-MB (CK-2) CK-MB (CK-2) Rel Index Total Protein Albumin Urine WBC (Auto) Vancomycin Trough Salicylates Acetaminophen Plasma/Serum Alcohol Crossmatch 02/09/20 02/09/20 02/09/20 01:05 11:52 16:19 WBC RBC Hgb Hct MCH RDW Plt Count Lymph % (Auto) [place] % (Auto) [place] # Baso # Seg Neutrophils % Seg Neuts % (Manual) Lymphocytes % (Manual) Monocytes % (Manual) Seg Neutrophils # Seg Neutrophils # Man Lymphocytes # (Manual) Monocytes # (Manual) Eosinophils # (Manual) Basophils # (Manual) PT INR APTT ABG pH ABG pO2 ABG HCO3 ABG O2 Saturation ABG Base Excess ABG Hemoglobin Oxyhemoglobin Sodium Potassium Chloride Carbon Dioxide BUN Creatinine Glucose POC Glucose 117 H 141 H 113 H Lactic Acid Calcium Ionized Calcium Phosphorus Magnesium Total Bilirubin AST ALT Alkaline Phosphatase Ammonia Total Creatine Kinase CK-MB (CK-2) CK-MB (CK-2) Rel Index Total Protein Albumin Urine WBC (Auto) Vancomycin Trough Salicylates Acetaminophen Plasma/Serum Alcohol Crossmatch 02/10/20 02/10/20 02/10/20 05:25 12:50 17:08 WBC RBC Hgb Hct MCH RDW Plt Count Lymph % (Auto) [place] % (Auto) [place] # Baso # Seg Neutrophils % Seg Neuts % (Manual) Lymphocytes % (Manual) Monocytes % (Manual) Seg Neutrophils # Seg Neutrophils # Man Lymphocytes # (Manual) Monocytes # (Manual) Eosinophils # (Manual) Basophils # (Manual) PT INR APTT ABG pH ABG pO2 ABG HCO3 ABG O2 Saturation ABG Base Excess ABG Hemoglobin Oxyhemoglobin Sodium Potassium Chloride Carbon Dioxide BUN Creatinine Glucose POC Glucose 136 H 127 H 111 H Lactic Acid Calcium Ionized Calcium Phosphorus Magnesium Total Bilirubin AST ALT Alkaline Phosphatase Ammonia Total Creatine Kinase CK-MB (CK-2) CK-MB (CK-2) Rel Index Total Protein Albumin Urine WBC (Auto) Vancomycin Trough Salicylates Acetaminophen Plasma/Serum Alcohol Crossmatch 02/10/20 02/11/20 02/11/20 23:55 06:11 12:07 WBC RBC Hgb Hct MCH RDW Plt Count Lymph % (Auto) [place] % (Auto) [place] # Baso # Seg Neutrophils % Seg Neuts % (Manual) Lymphocytes % (Manual) Monocytes % (Manual) Seg Neutrophils # Seg Neutrophils # Man Lymphocytes # (Manual) Monocytes # (Manual) Eosinophils # (Manual) Basophils # (Manual) PT INR APTT ABG pH ABG pO2 ABG HCO3 ABG O2 Saturation ABG Base Excess ABG Hemoglobin Oxyhemoglobin Sodium Potassium Chloride Carbon Dioxide BUN Creatinine Glucose POC Glucose 129 H 128 H 141 H Lactic Acid Calcium Ionized Calcium Phosphorus Magnesium Total Bilirubin AST ALT Alkaline Phosphatase Ammonia Total Creatine Kinase CK-MB (CK-2) CK-MB (CK-2) Rel Index Total Protein Albumin Urine WBC (Auto) Vancomycin Trough Salicylates Acetaminophen Plasma/Serum Alcohol Crossmatch 02/11/20 02/12/20 02/13/20 18:22 02:39 06:45 WBC RBC Hgb Hct MCH RDW Plt Count Lymph % (Auto) [place] % (Auto) [place] # Baso # Seg Neutrophils % Seg Neuts % (Manual) Lymphocytes % (Manual) Monocytes % (Manual) Seg Neutrophils # Seg Neutrophils # Man Lymphocytes # (Manual) Monocytes # (Manual) Eosinophils # (Manual) Basophils # (Manual) PT INR APTT ABG pH ABG pO2 ABG HCO3 ABG O2 Saturation ABG Base Excess ABG Hemoglobin Oxyhemoglobin Sodium Potassium Chloride Carbon Dioxide BUN Creatinine Glucose POC Glucose 118 H 107 H 124 H Lactic Acid Calcium Ionized Calcium Phosphorus Magnesium Total Bilirubin AST ALT Alkaline Phosphatase Ammonia Total Creatine Kinase CK-MB (CK-2) CK-MB (CK-2) Rel Index Total Protein Albumin Urine WBC (Auto) Vancomycin Trough Salicylates Acetaminophen Plasma/Serum Alcohol Crossmatch 02/13/20 02/13/20 02/14/20 12:26 18:19 00:21 WBC RBC Hgb Hct MCH RDW Plt Count Lymph % (Auto) [place] % (Auto) [place] # Baso # Seg Neutrophils % Seg Neuts % (Manual) Lymphocytes % (Manual) Monocytes % (Manual) Seg Neutrophils # Seg Neutrophils # Man Lymphocytes # (Manual) Monocytes # (Manual) Eosinophils # (Manual) Basophils # (Manual) PT INR APTT ABG pH ABG pO2 ABG HCO3 ABG O2 Saturation ABG Base Excess ABG Hemoglobin Oxyhemoglobin Sodium Potassium Chloride Carbon Dioxide BUN Creatinine Glucose POC Glucose 124 H 118 H 130 H Lactic Acid Calcium Ionized Calcium Phosphorus Magnesium Total Bilirubin AST ALT Alkaline Phosphatase Ammonia Total Creatine Kinase CK-MB (CK-2) CK-MB (CK-2) Rel Index Total Protein Albumin Urine WBC (Auto) Vancomycin Trough Salicylates Acetaminophen Plasma/Serum Alcohol Crossmatch 02/14/20 02/14/20 02/16/20 11:19 16:16 00:58 WBC RBC Hgb Hct MCH RDW Plt Count Lymph % (Auto) [place] % (Auto) [place] # Baso # Seg Neutrophils % Seg Neuts % (Manual) Lymphocytes % (Manual) Monocytes % (Manual) Seg Neutrophils # Seg Neutrophils # Man Lymphocytes # (Manual) Monocytes # (Manual) Eosinophils # (Manual) Basophils # (Manual) PT INR APTT ABG pH ABG pO2 ABG HCO3 ABG O2 Saturation ABG Base Excess ABG Hemoglobin Oxyhemoglobin Sodium Potassium Chloride Carbon Dioxide BUN Creatinine Glucose POC Glucose 135 H 119 H 121 H Lactic Acid Calcium Ionized Calcium Phosphorus Magnesium Total Bilirubin AST ALT Alkaline Phosphatase Ammonia Total Creatine Kinase CK-MB (CK-2) CK-MB (CK-2) Rel Index Total Protein Albumin Urine WBC (Auto) Vancomycin Trough Salicylates Acetaminophen Plasma/Serum Alcohol Crossmatch 02/16/20 02/16/20 02/16/20 12:12 18:22 23:51 WBC RBC Hgb Hct MCH RDW Plt Count Lymph % (Auto) [place] % (Auto) [place] # Baso # Seg Neutrophils % Seg Neuts % (Manual) Lymphocytes % (Manual) Monocytes % (Manual) Seg Neutrophils # Seg Neutrophils # Man Lymphocytes # (Manual) Monocytes # (Manual) Eosinophils # (Manual) Basophils # (Manual) PT INR APTT ABG pH ABG pO2 ABG HCO3 ABG O2 Saturation ABG Base Excess ABG Hemoglobin Oxyhemoglobin Sodium Potassium Chloride Carbon Dioxide BUN Creatinine Glucose POC Glucose 107 H 106 H 128 H Lactic Acid Calcium Ionized Calcium Phosphorus Magnesium Total Bilirubin AST ALT Alkaline Phosphatase Ammonia Total Creatine Kinase CK-MB (CK-2) CK-MB (CK-2) Rel Index Total Protein Albumin Urine WBC (Auto) Vancomycin Trough Salicylates Acetaminophen Plasma/Serum Alcohol Crossmatch 02/17/20 02/17/20 02/17/20 05:50 07:57 07:57 WBC 12.6 H RBC 3.52 L Hgb Hct MCH RDW 15.3 H Plt Count 643 H Lymph % (Auto) [place] % (Auto) 8.0 H [place] # 1.0 H Baso # Seg Neutrophils % Seg Neuts % (Manual) Lymphocytes % (Manual) Monocytes % (Manual) Seg Neutrophils # 8.5 H Seg Neutrophils # Man Lymphocytes # (Manual) Monocytes # (Manual) Eosinophils # (Manual) Basophils # (Manual) PT INR APTT ABG pH ABG pO2 ABG HCO3 ABG O2 Saturation ABG Base Excess ABG Hemoglobin Oxyhemoglobin Sodium Potassium Chloride 96.9 L Carbon Dioxide BUN 21 H Creatinine 0.4 L Glucose 113 H POC Glucose 116 H Lactic Acid Calcium 10.5 H Ionized Calcium Phosphorus Magnesium Total Bilirubin AST ALT Alkaline Phosphatase Ammonia Total Creatine Kinase CK-MB (CK-2) CK-MB (CK-2) Rel Index Total Protein Albumin Urine WBC (Auto) Vancomycin Trough Salicylates Acetaminophen Plasma/Serum Alcohol Crossmatch 02/17/20 02/17/20 02/18/20 12:05 18:16 00:13 WBC RBC Hgb Hct MCH RDW Plt Count Lymph % (Auto) [place] % (Auto) [place] # Baso # Seg Neutrophils % Seg Neuts % (Manual) Lymphocytes % (Manual) Monocytes % (Manual) Seg Neutrophils # Seg Neutrophils # Man Lymphocytes # (Manual) Monocytes # (Manual) Eosinophils # (Manual) Basophils # (Manual) PT INR APTT ABG pH ABG pO2 ABG HCO3 ABG O2 Saturation ABG Base Excess ABG Hemoglobin Oxyhemoglobin Sodium Potassium Chloride Carbon Dioxide BUN Creatinine Glucose POC Glucose 139 H 127 H 144 H Lactic Acid Calcium Ionized Calcium Phosphorus Magnesium Total Bilirubin AST ALT Alkaline Phosphatase Ammonia Total Creatine Kinase CK-MB (CK-2) CK-MB (CK-2) Rel Index Total Protein Albumin Urine WBC (Auto) Vancomycin Trough Salicylates Acetaminophen Plasma/Serum Alcohol Crossmatch 02/18/20 02/18/20 02/19/20 17:41 23:28 05:17 WBC RBC Hgb Hct MCH RDW Plt Count Lymph % (Auto) [place] % (Auto) [place] # Baso # Seg Neutrophils % Seg Neuts % (Manual) Lymphocytes % (Manual) Monocytes % (Manual) Seg Neutrophils # Seg Neutrophils # Man Lymphocytes # (Manual) Monocytes # (Manual) Eosinophils # (Manual) Basophils # (Manual) PT INR APTT ABG pH ABG pO2 ABG HCO3 ABG O2 Saturation ABG Base Excess ABG Hemoglobin Oxyhemoglobin Sodium Potassium Chloride Carbon Dioxide BUN Creatinine Glucose POC Glucose 118 H 166 H 116 H Lactic Acid Calcium Ionized Calcium Phosphorus Magnesium Total Bilirubin AST ALT Alkaline Phosphatase Ammonia Total Creatine Kinase CK-MB (CK-2) CK-MB (CK-2) Rel Index Total Protein Albumin Urine WBC (Auto) Vancomycin Trough Salicylates Acetaminophen Plasma/Serum Alcohol Crossmatch 02/19/20 02/19/20 02/20/20 12:33 17:02 00:12 WBC RBC Hgb Hct MCH RDW Plt Count Lymph % (Auto) [place] % (Auto) [place] # Baso # Seg Neutrophils % Seg Neuts % (Manual) Lymphocytes % (Manual) Monocytes % (Manual) Seg Neutrophils # Seg Neutrophils # Man Lymphocytes # (Manual) Monocytes # (Manual) Eosinophils # (Manual) Basophils # (Manual) PT INR APTT ABG pH ABG pO2 ABG HCO3 ABG O2 Saturation ABG Base Excess ABG Hemoglobin Oxyhemoglobin Sodium Potassium Chloride Carbon Dioxide BUN Creatinine Glucose POC Glucose 115 H 108 H 153 H Lactic Acid Calcium Ionized Calcium Phosphorus Magnesium Total Bilirubin AST ALT Alkaline Phosphatase Ammonia Total Creatine Kinase CK-MB (CK-2) CK-MB (CK-2) Rel Index Total Protein Albumin Urine WBC (Auto) Vancomycin Trough Salicylates Acetaminophen Plasma/Serum Alcohol Crossmatch 02/20/20 02/20/20 02/21/20 12:00 23:13 05:07 WBC RBC Hgb Hct MCH RDW Plt Count Lymph % (Auto) [place] % (Auto) [place] # Baso # Seg Neutrophils % Seg Neuts % (Manual) Lymphocytes % (Manual) Monocytes % (Manual) Seg Neutrophils # Seg Neutrophils # Man Lymphocytes # (Manual) Monocytes # (Manual) Eosinophils # (Manual) Basophils # (Manual) PT INR APTT ABG pH ABG pO2 ABG HCO3 ABG O2 Saturation ABG Base Excess ABG Hemoglobin Oxyhemoglobin Sodium Potassium Chloride Carbon Dioxide BUN Creatinine Glucose POC Glucose 171 H 129 H 116 H Lactic Acid Calcium Ionized Calcium Phosphorus Magnesium Total Bilirubin AST ALT Alkaline Phosphatase Ammonia Total Creatine Kinase CK-MB (CK-2) CK-MB (CK-2) Rel Index Total Protein Albumin Urine WBC (Auto) Vancomycin Trough Salicylates Acetaminophen Plasma/Serum Alcohol Crossmatch 02/21/20 02/22/20 02/22/20 12:15 00:42 06:30 WBC RBC Hgb Hct MCH RDW Plt Count Lymph % (Auto) [place] % (Auto) [place] # Baso # Seg Neutrophils % Seg Neuts % (Manual) Lymphocytes % (Manual) Monocytes % (Manual) Seg Neutrophils # Seg Neutrophils # Man Lymphocytes # (Manual) Monocytes # (Manual) Eosinophils # (Manual) Basophils # (Manual) PT INR APTT ABG pH ABG pO2 ABG HCO3 ABG O2 Saturation ABG Base Excess ABG Hemoglobin Oxyhemoglobin Sodium Potassium Chloride Carbon Dioxide BUN Creatinine Glucose POC Glucose 124 H 142 H 117 H Lactic Acid Calcium Ionized Calcium Phosphorus Magnesium Total Bilirubin AST ALT Alkaline Phosphatase Ammonia Total Creatine Kinase CK-MB (CK-2) CK-MB (CK-2) Rel Index Total Protein Albumin Urine WBC (Auto) Vancomycin Trough Salicylates Acetaminophen Plasma/Serum Alcohol Crossmatch 02/22/20 02/22/20 02/23/20 12:20 17:55 12:46 WBC RBC Hgb Hct MCH RDW Plt Count Lymph % (Auto) [place] % (Auto) [place] # Baso # Seg Neutrophils % Seg Neuts % (Manual) Lymphocytes % (Manual) Monocytes % (Manual) Seg Neutrophils # Seg Neutrophils # Man Lymphocytes # (Manual) Monocytes # (Manual) Eosinophils # (Manual) Basophils # (Manual) PT INR APTT ABG pH ABG pO2 ABG HCO3 ABG O2 Saturation ABG Base Excess ABG Hemoglobin Oxyhemoglobin Sodium Potassium Chloride Carbon Dioxide BUN Creatinine Glucose POC Glucose 121 H 157 H 112 H Lactic Acid Calcium Ionized Calcium Phosphorus Magnesium Total Bilirubin AST ALT Alkaline Phosphatase Ammonia Total Creatine Kinase CK-MB (CK-2) CK-MB (CK-2) Rel Index Total Protein Albumin Urine WBC (Auto) Vancomycin Trough Salicylates Acetaminophen Plasma/Serum Alcohol Crossmatch 02/23/20 02/24/20 02/24/20 16:47 00:38 07:00 WBC RBC Hgb Hct MCH RDW Plt Count Lymph % (Auto) [place] % (Auto) [place] # Baso # Seg Neutrophils % Seg Neuts % (Manual) Lymphocytes % (Manual) Monocytes % (Manual) Seg Neutrophils # Seg Neutrophils # Man Lymphocytes # (Manual) Monocytes # (Manual) Eosinophils # (Manual) Basophils # (Manual) PT INR APTT ABG pH ABG pO2 ABG HCO3 ABG O2 Saturation ABG Base Excess ABG Hemoglobin Oxyhemoglobin Sodium Potassium Chloride Carbon Dioxide BUN Creatinine Glucose POC Glucose 142 H 138 H 118 H Lactic Acid Calcium Ionized Calcium Phosphorus Magnesium Total Bilirubin AST ALT Alkaline Phosphatase Ammonia Total Creatine Kinase CK-MB (CK-2) CK-MB (CK-2) Rel Index Total Protein Albumin Urine WBC (Auto) Vancomycin Trough Salicylates Acetaminophen Plasma/Serum Alcohol Crossmatch 02/24/20 02/24/20 02/25/20 11:41 18:33 18:24 WBC RBC Hgb Hct MCH RDW Plt Count Lymph % (Auto) [place] % (Auto) [place] # Baso # Seg Neutrophils % Seg Neuts % (Manual) Lymphocytes % (Manual) Monocytes % (Manual) Seg Neutrophils # Seg Neutrophils # Man Lymphocytes # (Manual) Monocytes # (Manual) Eosinophils # (Manual) Basophils # (Manual) PT INR APTT ABG pH ABG pO2 ABG HCO3 ABG O2 Saturation ABG Base Excess ABG Hemoglobin Oxyhemoglobin Sodium Potassium Chloride Carbon Dioxide BUN Creatinine Glucose POC Glucose 152 H 126 H 120 H Lactic Acid Calcium Ionized Calcium Phosphorus Magnesium Total Bilirubin AST ALT Alkaline Phosphatase Ammonia Total Creatine Kinase CK-MB (CK-2) CK-MB (CK-2) Rel Index Total Protein Albumin Urine WBC (Auto) Vancomycin Trough Salicylates Acetaminophen Plasma/Serum Alcohol Crossmatch 02/25/20 02/26/20 02/26/20 23:40 05:46 11:32 WBC RBC Hgb Hct MCH RDW Plt Count Lymph % (Auto) [place] % (Auto) [place] # Baso # Seg Neutrophils % Seg Neuts % (Manual) Lymphocytes % (Manual) Monocytes % (Manual) Seg Neutrophils # Seg Neutrophils # Man Lymphocytes # (Manual) Monocytes # (Manual) Eosinophils # (Manual) Basophils # (Manual) PT INR APTT ABG pH ABG pO2 ABG HCO3 ABG O2 Saturation ABG Base Excess ABG Hemoglobin Oxyhemoglobin Sodium Potassium Chloride Carbon Dioxide BUN Creatinine Glucose POC Glucose 114 H 113 H 106 H Lactic Acid Calcium Ionized Calcium Phosphorus Magnesium Total Bilirubin AST ALT Alkaline Phosphatase Ammonia Total Creatine Kinase CK-MB (CK-2) CK-MB (CK-2) Rel Index Total Protein Albumin Urine WBC (Auto) Vancomycin Trough Salicylates Acetaminophen Plasma/Serum Alcohol Crossmatch 02/26/20 02/27/20 02/27/20 16:14 11:53 17:54 WBC RBC Hgb Hct MCH RDW Plt Count Lymph % (Auto) [place] % (Auto) [place] # Baso # Seg Neutrophils % Seg Neuts % (Manual) Lymphocytes % (Manual) Monocytes % (Manual) Seg Neutrophils # Seg Neutrophils # Man Lymphocytes # (Manual) Monocytes # (Manual) Eosinophils # (Manual) Basophils # (Manual) PT INR APTT ABG pH ABG pO2 ABG HCO3 ABG O2 Saturation ABG Base Excess ABG Hemoglobin Oxyhemoglobin Sodium Potassium Chloride Carbon Dioxide BUN Creatinine Glucose POC Glucose 123 H 134 H 119 H Lactic Acid Calcium Ionized Calcium Phosphorus Magnesium Total Bilirubin AST ALT Alkaline Phosphatase Ammonia Total Creatine Kinase CK-MB (CK-2) CK-MB (CK-2) Rel Index Total Protein Albumin Urine WBC (Auto) Vancomycin Trough Salicylates Acetaminophen Plasma/Serum Alcohol Crossmatch 02/27/20 02/28/20 02/28/20 23:51 03:40 03:40 WBC RBC 3.58 L Hgb Hct MCH RDW Plt Count 575 H Lymph % (Auto) [place] % (Auto) 9.4 H [place] # 1.0 H Baso # Seg Neutrophils % Seg Neuts % (Manual) Lymphocytes % (Manual) Monocytes % (Manual) Seg Neutrophils # Seg Neutrophils # Man Lymphocytes # (Manual) Monocytes # (Manual) Eosinophils # (Manual) Basophils # (Manual) PT INR APTT ABG pH ABG pO2 ABG HCO3 ABG O2 Saturation ABG Base Excess ABG Hemoglobin Oxyhemoglobin Sodium Potassium Chloride Carbon Dioxide BUN 23 H Creatinine 0.5 L Glucose 114 H POC Glucose 138 H Lactic Acid Calcium Ionized Calcium Phosphorus Magnesium Total Bilirubin AST ALT Alkaline Phosphatase Ammonia Total Creatine Kinase CK-MB (CK-2) CK-MB (CK-2) Rel Index Total Protein Albumin Urine WBC (Auto) Vancomycin Trough Salicylates Acetaminophen Plasma/Serum Alcohol Crossmatch 02/28/20 02/28/20 02/29/20 12:37 18:38 05:50 WBC RBC Hgb Hct MCH RDW Plt Count Lymph % (Auto) [place] % (Auto) [place] # Baso # Seg Neutrophils % Seg Neuts % (Manual) Lymphocytes % (Manual) Monocytes % (Manual) Seg Neutrophils # Seg Neutrophils # Man Lymphocytes # (Manual) Monocytes # (Manual) Eosinophils # (Manual) Basophils # (Manual) PT INR APTT ABG pH ABG pO2 ABG HCO3 ABG O2 Saturation ABG Base Excess ABG Hemoglobin Oxyhemoglobin Sodium Potassium Chloride Carbon Dioxide BUN Creatinine Glucose POC Glucose 115 H 120 H 114 H Lactic Acid Calcium Ionized Calcium Phosphorus Magnesium Total Bilirubin AST ALT Alkaline Phosphatase Ammonia Total Creatine Kinase CK-MB (CK-2) CK-MB (CK-2) Rel Index Total Protein Albumin Urine WBC (Auto) Vancomycin Trough Salicylates Acetaminophen Plasma/Serum Alcohol Crossmatch 02/29/20 02/29/20 03/01/20 18:53 23:10 06:53 WBC RBC Hgb Hct MCH RDW Plt Count Lymph % (Auto) [place] % (Auto) [place] # Baso # Seg Neutrophils % Seg Neuts % (Manual) Lymphocytes % (Manual) Monocytes % (Manual) Seg Neutrophils # Seg Neutrophils # Man Lymphocytes # (Manual) Monocytes # (Manual) Eosinophils # (Manual) Basophils # (Manual) PT INR APTT ABG pH ABG pO2 ABG HCO3 ABG O2 Saturation ABG Base Excess ABG Hemoglobin Oxyhemoglobin Sodium Potassium Chloride Carbon Dioxide BUN Creatinine Glucose POC Glucose 112 H 147 H 131 H Lactic Acid Calcium Ionized Calcium Phosphorus Magnesium Total Bilirubin AST ALT Alkaline Phosphatase Ammonia Total Creatine Kinase CK-MB (CK-2) CK-MB (CK-2) Rel Index Total Protein Albumin Urine WBC (Auto) Vancomycin Trough Salicylates Acetaminophen Plasma/Serum Alcohol Crossmatch 03/01/20 03/01/20 03/02/20 17:31 18:35 00:10 WBC RBC Hgb Hct MCH RDW Plt Count Lymph % (Auto) [place] % (Auto) [place] # Baso # Seg Neutrophils % Seg Neuts % (Manual) Lymphocytes % (Manual) Monocytes % (Manual) Seg Neutrophils # Seg Neutrophils # Man Lymphocytes # (Manual) Monocytes # (Manual) Eosinophils # (Manual) Basophils # (Manual) PT INR APTT ABG pH ABG pO2 ABG HCO3 ABG O2 Saturation ABG Base Excess ABG Hemoglobin Oxyhemoglobin Sodium Potassium Chloride Carbon Dioxide BUN Creatinine Glucose POC Glucose 61 L 129 H 117 H Lactic Acid Calcium Ionized Calcium Phosphorus Magnesium Total Bilirubin AST ALT Alkaline Phosphatase Ammonia Total Creatine Kinase CK-MB (CK-2) CK-MB (CK-2) Rel Index Total Protein Albumin Urine WBC (Auto) Vancomycin Trough Salicylates Acetaminophen Plasma/Serum Alcohol Crossmatch 03/02/20 03/02/20 03/02/20 06:56 12:02 18:42 WBC RBC Hgb Hct MCH RDW Plt Count Lymph % (Auto) [place] % (Auto) [place] # Baso # Seg Neutrophils % Seg Neuts % (Manual) Lymphocytes % (Manual) Monocytes % (Manual) Seg Neutrophils # Seg Neutrophils # Man Lymphocytes # (Manual) Monocytes # (Manual) Eosinophils # (Manual) Basophils # (Manual) PT INR APTT ABG pH ABG pO2 ABG HCO3 ABG O2 Saturation ABG Base Excess ABG Hemoglobin Oxyhemoglobin Sodium Potassium Chloride Carbon Dioxide BUN Creatinine Glucose POC Glucose 125 H 111 H 126 H Lactic Acid Calcium Ionized Calcium Phosphorus Magnesium Total Bilirubin AST ALT Alkaline Phosphatase Ammonia Total Creatine Kinase CK-MB (CK-2) CK-MB (CK-2) Rel Index Total Protein Albumin Urine WBC (Auto) Vancomycin Trough Salicylates Acetaminophen Plasma/Serum Alcohol Crossmatch 03/03/20 03/03/20 03/03/20 00:18 06:11 11:50 WBC RBC Hgb Hct MCH RDW Plt Count Lymph % (Auto) [place] % (Auto) [place] # Baso # Seg Neutrophils % Seg Neuts % (Manual) Lymphocytes % (Manual) Monocytes % (Manual) Seg Neutrophils # Seg Neutrophils # Man Lymphocytes # (Manual) Monocytes # (Manual) Eosinophils # (Manual) Basophils # (Manual) PT INR APTT ABG pH ABG pO2 ABG HCO3 ABG O2 Saturation ABG Base Excess ABG Hemoglobin Oxyhemoglobin Sodium Potassium Chloride Carbon Dioxide BUN Creatinine Glucose POC Glucose 139 H 155 H 118 H Lactic Acid Calcium Ionized Calcium Phosphorus Magnesium Total Bilirubin AST ALT Alkaline Phosphatase Ammonia Total Creatine Kinase CK-MB (CK-2) CK-MB (CK-2) Rel Index Total Protein Albumin Urine WBC (Auto) Vancomycin Trough Salicylates Acetaminophen Plasma/Serum Alcohol Crossmatch 03/03/20 03/03/20 03/04/20 18:09 23:46 05:37 WBC RBC Hgb Hct MCH RDW Plt Count Lymph % (Auto) [place] % (Auto) [place] # Baso # Seg Neutrophils % Seg Neuts % (Manual) Lymphocytes % (Manual) Monocytes % (Manual) Seg Neutrophils # Seg Neutrophils # Man Lymphocytes # (Manual) Monocytes # (Manual) Eosinophils # (Manual) Basophils # (Manual) PT INR APTT ABG pH ABG pO2 ABG HCO3 ABG O2 Saturation ABG Base Excess ABG Hemoglobin Oxyhemoglobin Sodium Potassium Chloride Carbon Dioxide BUN Creatinine Glucose POC Glucose 109 H 132 H 111 H Lactic Acid Calcium Ionized Calcium Phosphorus Magnesium Total Bilirubin AST ALT Alkaline Phosphatase Ammonia Total Creatine Kinase CK-MB (CK-2) CK-MB (CK-2) Rel Index Total Protein Albumin Urine WBC (Auto) Vancomycin Trough Salicylates Acetaminophen Plasma/Serum Alcohol Crossmatch 03/04/20 03/04/20 03/05/20 11:38 17:54 00:14 WBC RBC Hgb Hct MCH RDW Plt Count Lymph % (Auto) [place] % (Auto) [place] # Baso # Seg Neutrophils % Seg Neuts % (Manual) Lymphocytes % (Manual) Monocytes % (Manual) Seg Neutrophils # Seg Neutrophils # Man Lymphocytes # (Manual) Monocytes # (Manual) Eosinophils # (Manual) Basophils # (Manual) PT INR APTT ABG pH ABG pO2 ABG HCO3 ABG O2 Saturation ABG Base Excess ABG Hemoglobin Oxyhemoglobin Sodium Potassium Chloride Carbon Dioxide BUN Creatinine Glucose POC Glucose 138 H 118 H 134 H Lactic Acid Calcium Ionized Calcium Phosphorus Magnesium Total Bilirubin AST ALT Alkaline Phosphatase Ammonia Total Creatine Kinase CK-MB (CK-2) CK-MB (CK-2) Rel Index Total Protein Albumin Urine WBC (Auto) Vancomycin Trough Salicylates Acetaminophen Plasma/Serum Alcohol Crossmatch 03/06/20 03/06/20 03/06/20 03:37 03:37 06:29 WBC RBC Hgb Hct MCH RDW Plt Count 550 H Lymph % (Auto) [place] % (Auto) 9.1 H [place] # Baso # Seg Neutrophils % Seg Neuts % (Manual) Lymphocytes % (Manual) Monocytes % (Manual) Seg Neutrophils # Seg Neutrophils # Man Lymphocytes # (Manual) Monocytes # (Manual) Eosinophils # (Manual) Basophils # (Manual) PT INR APTT ABG pH ABG pO2 ABG HCO3 ABG O2 Saturation ABG Base Excess ABG Hemoglobin Oxyhemoglobin Sodium Potassium Chloride Carbon Dioxide BUN 26 H Creatinine 0.5 L Glucose POC Glucose 128 H Lactic Acid Calcium 10.4 H Ionized Calcium Phosphorus Magnesium Total Bilirubin AST ALT Alkaline Phosphatase Ammonia Total Creatine Kinase CK-MB (CK-2) CK-MB (CK-2) Rel Index Total Protein Albumin Urine WBC (Auto) Vancomycin Trough Salicylates Acetaminophen Plasma/Serum Alcohol Crossmatch 03/06/20 03/07/20 03/07/20 17:47 06:37 12:37 WBC RBC Hgb Hct MCH RDW Plt Count Lymph % (Auto) [place] % (Auto) [place] # Baso # Seg Neutrophils % Seg Neuts % (Manual) Lymphocytes % (Manual) Monocytes % (Manual) Seg Neutrophils # Seg Neutrophils # Man Lymphocytes # (Manual) Monocytes # (Manual) Eosinophils # (Manual) Basophils # (Manual) PT INR APTT ABG pH ABG pO2 ABG HCO3 ABG O2 Saturation ABG Base Excess ABG Hemoglobin Oxyhemoglobin Sodium Potassium Chloride Carbon Dioxide BUN Creatinine Glucose POC Glucose 120 H 113 H 118 H Lactic Acid Calcium Ionized Calcium Phosphorus Magnesium Total Bilirubin AST ALT Alkaline Phosphatase Ammonia Total Creatine Kinase CK-MB (CK-2) CK-MB (CK-2) Rel Index Total Protein Albumin Urine WBC (Auto) Vancomycin Trough Salicylates Acetaminophen Plasma/Serum Alcohol Crossmatch 03/07/20 03/08/20 03/08/20 16:41 00:55 06:25 WBC RBC Hgb Hct MCH RDW Plt Count Lymph % (Auto) [place] % (Auto) [place] # Baso # Seg Neutrophils % Seg Neuts % (Manual) Lymphocytes % (Manual) Monocytes % (Manual) Seg Neutrophils # Seg Neutrophils # Man Lymphocytes # (Manual) Monocytes # (Manual) Eosinophils # (Manual) Basophils # (Manual) PT INR APTT ABG pH ABG pO2 ABG HCO3 ABG O2 Saturation ABG Base Excess ABG Hemoglobin Oxyhemoglobin Sodium Potassium Chloride Carbon Dioxide BUN Creatinine Glucose POC Glucose 108 H 139 H 127 H Lactic Acid Calcium Ionized Calcium Phosphorus Magnesium Total Bilirubin AST ALT Alkaline Phosphatase Ammonia Total Creatine Kinase CK-MB (CK-2) CK-MB (CK-2) Rel Index Total Protein Albumin Urine WBC (Auto) Vancomycin Trough Salicylates Acetaminophen Plasma/Serum Alcohol Crossmatch 03/08/20 03/08/20 03/08/20 12:49 13:25 17:13 WBC RBC Hgb Hct MCH RDW Plt Count Lymph % (Auto) [place] % (Auto) [place] # Baso # Seg Neutrophils % Seg Neuts % (Manual) Lymphocytes % (Manual) Monocytes % (Manual) Seg Neutrophils # Seg Neutrophils # Man Lymphocytes # (Manual) Monocytes # (Manual) Eosinophils # (Manual) Basophils # (Manual) PT INR APTT ABG pH ABG pO2 71.1 L ABG HCO3 26.2 H ABG O2 Saturation ABG Base Excess ABG Hemoglobin 8.2 L Oxyhemoglobin 94.8 L Sodium Potassium Chloride Carbon Dioxide BUN Creatinine Glucose POC Glucose 127 H 147 H Lactic Acid Calcium Ionized Calcium Phosphorus Magnesium Total Bilirubin AST ALT Alkaline Phosphatase Ammonia Total Creatine Kinase CK-MB (CK-2) CK-MB (CK-2) Rel Index Total Protein Albumin Urine WBC (Auto) Vancomycin Trough Salicylates Acetaminophen Plasma/Serum Alcohol Crossmatch 03/09/20 03/09/20 03/09/20 06:28 08:36 23:58 WBC RBC Hgb Hct MCH RDW Plt Count Lymph % (Auto) [place] % (Auto) [place] # Baso # Seg Neutrophils % Seg Neuts % (Manual) Lymphocytes % (Manual) Monocytes % (Manual) Seg Neutrophils # Seg Neutrophils # Man Lymphocytes # (Manual) Monocytes # (Manual) Eosinophils # (Manual) Basophils # (Manual) PT INR APTT ABG pH ABG pO2 ABG HCO3 ABG O2 Saturation ABG Base Excess ABG Hemoglobin Oxyhemoglobin Sodium Potassium Chloride Carbon Dioxide BUN Creatinine Glucose POC Glucose 139 H 167 H 122 H Lactic Acid Calcium Ionized Calcium Phosphorus Magnesium Total Bilirubin AST ALT Alkaline Phosphatase Ammonia Total Creatine Kinase CK-MB (CK-2) CK-MB (CK-2) Rel Index Total Protein Albumin Urine WBC (Auto) Vancomycin Trough Salicylates Acetaminophen Plasma/Serum Alcohol Crossmatch 03/10/20 03/10/20 03/11/20 06:32 23:27 06:23 WBC RBC Hgb Hct MCH RDW Plt Count Lymph % (Auto) [place] % (Auto) [place] # Baso # Seg Neutrophils % Seg Neuts % (Manual) Lymphocytes % (Manual) Monocytes % (Manual) Seg Neutrophils # Seg Neutrophils # Man Lymphocytes # (Manual) Monocytes # (Manual) Eosinophils # (Manual) Basophils # (Manual) PT INR APTT ABG pH ABG pO2 ABG HCO3 ABG O2 Saturation ABG Base Excess ABG Hemoglobin Oxyhemoglobin Sodium Potassium Chloride Carbon Dioxide BUN Creatinine Glucose POC Glucose 165 H 115 H 139 H Lactic Acid Calcium Ionized Calcium Phosphorus Magnesium Total Bilirubin AST ALT Alkaline Phosphatase Ammonia Total Creatine Kinase CK-MB (CK-2) CK-MB (CK-2) Rel Index Total Protein Albumin Urine WBC (Auto) Vancomycin Trough Salicylates Acetaminophen Plasma/Serum Alcohol Crossmatch 03/11/20 03/11/20 03/12/20 12:29 18:02 04:53 WBC RBC Hgb Hct MCH RDW Plt Count 625 H Lymph % (Auto) [place] % (Auto) [place] # Baso # Seg Neutrophils % Seg Neuts % (Manual) Lymphocytes % (Manual) Monocytes % (Manual) Seg Neutrophils # Seg Neutrophils # Man Lymphocytes # (Manual) Monocytes # (Manual) Eosinophils # (Manual) Basophils # (Manual) PT INR APTT ABG pH ABG pO2 ABG HCO3 ABG O2 Saturation ABG Base Excess ABG Hemoglobin Oxyhemoglobin Sodium Potassium Chloride Carbon Dioxide BUN Creatinine Glucose POC Glucose 164 H 113 H Lactic Acid Calcium Ionized Calcium Phosphorus Magnesium Total Bilirubin AST ALT Alkaline Phosphatase Ammonia Total Creatine Kinase CK-MB (CK-2) CK-MB (CK-2) Rel Index Total Protein Albumin Urine WBC (Auto) Vancomycin Trough Salicylates Acetaminophen Plasma/Serum Alcohol Crossmatch 03/12/20 03/12/20 03/12/20 04:53 06:26 12:38 WBC RBC Hgb Hct MCH RDW Plt Count Lymph % (Auto) [place] % (Auto) [place] # Baso # Seg Neutrophils % Seg Neuts % (Manual) Lymphocytes % (Manual) Monocytes % (Manual) Seg Neutrophils # Seg Neutrophils # Man Lymphocytes # (Manual) Monocytes # (Manual) Eosinophils # (Manual) Basophils # (Manual) PT INR APTT ABG pH ABG pO2 ABG HCO3 ABG O2 Saturation ABG Base Excess ABG Hemoglobin Oxyhemoglobin Sodium Potassium 5.3 H Chloride Carbon Dioxide BUN 34 H Creatinine Glucose 159 H POC Glucose 149 H 130 H Lactic Acid Calcium 10.7 H Ionized Calcium Phosphorus Magnesium Total Bilirubin AST ALT Alkaline Phosphatase Ammonia Total Creatine Kinase CK-MB (CK-2) CK-MB (CK-2) Rel Index Total Protein Albumin Urine WBC (Auto) Vancomycin Trough Salicylates Acetaminophen Plasma/Serum Alcohol Crossmatch 03/13/20 03/13/20 03/13/20 03:50 06:12 18:11 WBC RBC Hgb Hct MCH RDW Plt Count Lymph % (Auto) [place] % (Auto) [place] # Baso # Seg Neutrophils % Seg Neuts % (Manual) Lymphocytes % (Manual) Monocytes % (Manual) Seg Neutrophils # Seg Neutrophils # Man Lymphocytes # (Manual) Monocytes # (Manual) Eosinophils # (Manual) Basophils # (Manual) PT INR APTT ABG pH ABG pO2 ABG HCO3 ABG O2 Saturation ABG Base Excess ABG Hemoglobin Oxyhemoglobin Sodium Potassium Chloride Carbon Dioxide 20 L BUN 30 H Creatinine 0.6 L Glucose 153 H POC Glucose 124 H 111 H Lactic Acid Calcium Ionized Calcium Phosphorus Magnesium Total Bilirubin AST ALT Alkaline Phosphatase Ammonia Total Creatine Kinase CK-MB (CK-2) CK-MB (CK-2) Rel Index Total Protein Albumin Urine WBC (Auto) Vancomycin Trough Salicylates Acetaminophen Plasma/Serum Alcohol Crossmatch 03/14/20 03/14/2020 12:01 15:40 00:02 WBC RBC Hgb Hct MCH RDW Plt Count Lymph % (Auto) [place] % (Auto) [place] # Baso # Seg Neutrophils % Seg Neuts % (Manual) Lymphocytes % (Manual) Monocytes % (Manual) Seg Neutrophils # Seg Neutrophils # Man Lymphocytes # (Manual) Monocytes # (Manual) Eosinophils # (Manual) Basophils # (Manual) PT INR APTT ABG pH ABG pO2 ABG HCO3 ABG O2 Saturation ABG Base Excess ABG Hemoglobin Oxyhemoglobin Sodium Potassium Chloride Carbon Dioxide BUN Creatinine Glucose POC Glucose 116 H 125 H 143 H Lactic Acid Calcium Ionized Calcium Phosphorus Magnesium Total Bilirubin AST ALT Alkaline Phosphatase Ammonia Total Creatine Kinase CK-MB (CK-2) CK-MB (CK-2) Rel Index Total Protein Albumin Urine WBC (Auto) Vancomycin Trough Salicylates Acetaminophen Plasma/Serum Alcohol Crossmatch 03/15/20 03/15/20 03/16/20 12:03 18:14 12:14 WBC RBC Hgb Hct MCH RDW Plt Count Lymph % (Auto) [place] % (Auto) [place] # Baso # Seg Neutrophils % Seg Neuts % (Manual) Lymphocytes % (Manual) Monocytes % (Manual) Seg Neutrophils # Seg Neutrophils # Man Lymphocytes # (Manual) Monocytes # (Manual) Eosinophils # (Manual) Basophils # (Manual) PT INR APTT ABG pH ABG pO2 ABG HCO3 ABG O2 Saturation ABG Base Excess ABG Hemoglobin Oxyhemoglobin Sodium Potassium Chloride Carbon Dioxide BUN Creatinine Glucose POC Glucose 106 H 107 H 107 H Lactic Acid Calcium Ionized Calcium Phosphorus Magnesium Total Bilirubin AST ALT Alkaline Phosphatase Ammonia Total Creatine Kinase CK-MB (CK-2) CK-MB (CK-2) Rel Index Total Protein Albumin Urine WBC (Auto) Vancomycin Trough Salicylates Acetaminophen Plasma/Serum Alcohol Crossmatch 03/16/20 03/17/20 03/17/20 18:30 05:44 12:09 WBC RBC Hgb Hct MCH RDW Plt Count Lymph % (Auto) [place] % (Auto) [place] # Baso # Seg Neutrophils % Seg Neuts % (Manual) Lymphocytes % (Manual) Monocytes % (Manual) Seg Neutrophils # Seg Neutrophils # Man Lymphocytes # (Manual) Monocytes # (Manual) Eosinophils # (Manual) Basophils # (Manual) PT INR APTT ABG pH ABG pO2 ABG HCO3 ABG O2 Saturation ABG Base Excess ABG Hemoglobin Oxyhemoglobin Sodium Potassium Chloride Carbon Dioxide BUN Creatinine Glucose POC Glucose 128 H 114 H 120 H Lactic Acid Calcium Ionized Calcium Phosphorus Magnesium Total Bilirubin AST ALT Alkaline Phosphatase Ammonia Total Creatine Kinase CK-MB (CK-2) CK-MB (CK-2) Rel Index Total Protein Albumin Urine WBC (Auto) Vancomycin Trough Salicylates Acetaminophen Plasma/Serum Alcohol Crossmatch 03/17/20 03/17/20 03/18/20 16:51 23:36 07:07 WBC RBC Hgb Hct MCH RDW Plt Count Lymph % (Auto) [place] % (Auto) [place] # Baso # Seg Neutrophils % Seg Neuts % (Manual) Lymphocytes % (Manual) Monocytes % (Manual) Seg Neutrophils # Seg Neutrophils # Man Lymphocytes # (Manual) Monocytes # (Manual) Eosinophils # (Manual) Basophils # (Manual) PT INR APTT ABG pH ABG pO2 ABG HCO3 ABG O2 Saturation ABG Base Excess ABG Hemoglobin Oxyhemoglobin Sodium Potassium Chloride Carbon Dioxide BUN Creatinine Glucose POC Glucose 108 H 145 H 116 H Lactic Acid Calcium Ionized Calcium Phosphorus Magnesium Total Bilirubin AST ALT Alkaline Phosphatase Ammonia Total Creatine Kinase CK-MB (CK-2) CK-MB (CK-2) Rel Index Total Protein Albumin Urine WBC (Auto) Vancomycin Trough Salicylates Acetaminophen Plasma/Serum Alcohol Crossmatch 03/18/20 03/19/20 03/19/20 18:11 06:09 11:49 WBC RBC Hgb Hct MCH RDW Plt Count Lymph % (Auto) [place] % (Auto) [place] # Baso # Seg Neutrophils % Seg Neuts % (Manual) Lymphocytes % (Manual) Monocytes % (Manual) Seg Neutrophils # Seg Neutrophils # Man Lymphocytes # (Manual) Monocytes # (Manual) Eosinophils # (Manual) Basophils # (Manual) PT INR APTT ABG pH ABG pO2 ABG HCO3 ABG O2 Saturation ABG Base Excess ABG Hemoglobin Oxyhemoglobin Sodium Potassium Chloride Carbon Dioxide BUN Creatinine Glucose POC Glucose 106 H 160 H 145 H Lactic Acid Calcium Ionized Calcium Phosphorus Magnesium Total Bilirubin AST ALT Alkaline Phosphatase Ammonia Total Creatine Kinase CK-MB (CK-2) CK-MB (CK-2) Rel Index Total Protein Albumin Urine WBC (Auto) Vancomycin Trough Salicylates Acetaminophen Plasma/Serum Alcohol Crossmatch 03/20/20 03/20/20 03/20/20 01:01 06:14 12:52 WBC RBC Hgb Hct MCH RDW Plt Count Lymph % (Auto) [place] % (Auto) [place] # Baso # Seg Neutrophils % Seg Neuts % (Manual) Lymphocytes % (Manual) Monocytes % (Manual) Seg Neutrophils # Seg Neutrophils # Man Lymphocytes # (Manual) Monocytes # (Manual) Eosinophils # (Manual) Basophils # (Manual) PT INR APTT ABG pH ABG pO2 ABG HCO3 ABG O2 Saturation ABG Base Excess ABG Hemoglobin Oxyhemoglobin Sodium Potassium Chloride Carbon Dioxide BUN Creatinine Glucose POC Glucose 109 H 122 H 106 H Lactic Acid Calcium Ionized Calcium Phosphorus Magnesium Total Bilirubin AST ALT Alkaline Phosphatase Ammonia Total Creatine Kinase CK-MB (CK-2) CK-MB (CK-2) Rel Index Total Protein Albumin Urine WBC (Auto) Vancomycin Trough Salicylates Acetaminophen Plasma/Serum Alcohol Crossmatch 03/20/20 03/21/20 03/21/20 18:56 00:18 05:21 WBC RBC Hgb Hct MCH RDW Plt Count Lymph % (Auto) [place] % (Auto) [place] # Baso # Seg Neutrophils % Seg Neuts % (Manual) Lymphocytes % (Manual) Monocytes % (Manual) Seg Neutrophils # Seg Neutrophils # Man Lymphocytes # (Manual) Monocytes # (Manual) Eosinophils # (Manual) Basophils # (Manual) PT INR APTT ABG pH ABG pO2 ABG HCO3 ABG O2 Saturation ABG Base Excess ABG Hemoglobin Oxyhemoglobin Sodium Potassium Chloride Carbon Dioxide BUN Creatinine Glucose POC Glucose 110 H 140 H 112 H Lactic Acid Calcium Ionized Calcium Phosphorus Magnesium Total Bilirubin AST ALT Alkaline Phosphatase Ammonia Total Creatine Kinase CK-MB (CK-2) CK-MB (CK-2) Rel Index Total Protein Albumin Urine WBC (Auto) Vancomycin Trough Salicylates Acetaminophen Plasma/Serum Alcohol Crossmatch 03/21/20 03/22/20 03/22/20 17:15 01:14 12:08 WBC RBC Hgb Hct MCH RDW Plt Count Lymph % (Auto) [place] % (Auto) [place] # Baso # Seg Neutrophils % Seg Neuts % (Manual) Lymphocytes % (Manual) Monocytes % (Manual) Seg Neutrophils # Seg Neutrophils # Man Lymphocytes # (Manual) Monocytes # (Manual) Eosinophils # (Manual) Basophils # (Manual) PT INR APTT ABG pH ABG pO2 ABG HCO3 ABG O2 Saturation ABG Base Excess ABG Hemoglobin Oxyhemoglobin Sodium Potassium Chloride Carbon Dioxide BUN Creatinine Glucose POC Glucose 158 H 157 H 133 H Lactic Acid Calcium Ionized Calcium Phosphorus Magnesium Total Bilirubin AST ALT Alkaline Phosphatase Ammonia Total Creatine Kinase CK-MB (CK-2) CK-MB (CK-2) Rel Index Total Protein Albumin Urine WBC (Auto) Vancomycin Trough Salicylates Acetaminophen Plasma/Serum Alcohol Crossmatch 03/22/20 03/23/20 03/23/20 16:48 01:00 06:54 WBC RBC Hgb Hct MCH RDW Plt Count Lymph % (Auto) [place] % (Auto) [place] # Baso # Seg Neutrophils % Seg Neuts % (Manual) Lymphocytes % (Manual) Monocytes % (Manual) Seg Neutrophils # Seg Neutrophils # Man Lymphocytes # (Manual) Monocytes # (Manual) Eosinophils # (Manual) Basophils # (Manual) PT INR APTT ABG pH ABG pO2 ABG HCO3 ABG O2 Saturation ABG Base Excess ABG Hemoglobin Oxyhemoglobin Sodium Potassium Chloride Carbon Dioxide BUN Creatinine Glucose POC Glucose 111 H 153 H 129 H Lactic Acid Calcium Ionized Calcium Phosphorus Magnesium Total Bilirubin AST ALT Alkaline Phosphatase Ammonia Total Creatine Kinase CK-MB (CK-2) CK-MB (CK-2) Rel Index Total Protein Albumin Urine WBC (Auto) Vancomycin Trough Salicylates Acetaminophen Plasma/Serum Alcohol Crossmatch 03/23/20 03/23/20 12:08 15:54 WBC RBC Hgb Hct MCH RDW Plt Count Lymph % (Auto) [place] % (Auto) [place] # Baso # Seg Neutrophils % Seg Neuts % (Manual) Lymphocytes % (Manual) Monocytes % (Manual) Seg Neutrophils # Seg Neutrophils # Man Lymphocytes # (Manual) Monocytes # (Manual) Eosinophils # (Manual) Basophils # (Manual) PT INR APTT ABG pH ABG pO2 ABG HCO3 ABG O2 Saturation ABG Base Excess ABG Hemoglobin Oxyhemoglobin Sodium Potassium Chloride Carbon Dioxide BUN Creatinine Glucose POC Glucose 126 H 142 H Lactic Acid Calcium Ionized Calcium Phosphorus Magnesium Total Bilirubin AST ALT Alkaline Phosphatase Ammonia Total Creatine Kinase CK-MB (CK-2) CK-MB (CK-2) Rel Index Total Protein Albumin Urine WBC (Auto) Vancomycin Trough Salicylates Acetaminophen Plasma/Serum Alcohol Crossmatch Allied health notes reviewed: RT
[2020-03-23] MEDS: ACETAMINOPHEN 325 MG/10.15 ML ORAL LIQD UNIT DOSE FEEDTUBE PRN (22:36)
[2020-03-23] MEDS: ENOXAPARIN 40 MG/0.4 ML INJ SUB-Q SCH (22:37)
[2020-03-24] MEDS: IPRATROPIUM/ALBUTEROL SULFATE 3 ML AMPUL.NEB IH SCH ×4 (02:57→20:39)
[2020-03-24] MEDS: ACETYLCYSTEINE 20% 200 MG/1 ML *FOR INHALATION USE INHALATION SCH ×2 (07:53→20:39)
--- NOTE | 2020-03-24 08:09 | Progress Note ---
Assessment and Plan Assessment and plan: 54-year-old female with a past medical history of Hypertension, Depression, Tobacco use Disorder, Alcohol use Disorder as confirmed by Daughter and pt's mother presents to the hospital status post cardiac arrest at home. EMS found pt in [facility]. They were unable to intubate patient with a ET tube because she was clenching down therefore Joe airway placed. Per the ED physician who evaluated pt, Patient presented with a pulse, intermittent respirations, and bagging support via Joe airway with O2 sat of 100%. Accu-Chek of 71 obtained by EMS. She was intubated in the ER and called for admission. Following admission patient was diagnosed with anoxic brain injury, sepsis with MRSA bacteremia and MSSA pneumonia, alcoholic liver disease. Family member initially wished for full code then changed to DNR, patient treated with IV antibiotics for sepsis, status post trach and PEG on 12/13/19. Weaned off from the vent and put on T- piece. Patient is uninsured, waiting for placement, guarded prognosis. 03/07: Returning to service no acute changes are noted. Continue current management while awaiting placement. Intermittent labs. Base of neck also around tracheostomy tube preventing downgrading. Continue appropriate wound care. 03/08: Plan of care unchanged continues on aerosol trach collar 28% of oxygen. Continue wound care management placement still pending status decision. 03/09: Continue current treatment plan. Continue aspiration precaution 03/10: Continue current management, Restraints as patient still pulling, awaiting placement 03/11: Continue supportive care, intermittent suctioning and pulmonary toilet. awaiting placement. 03/12: Continue supportive care, Give a bolus of fluids due to Hypercalcemia, Monitor Hyperkalemia with labs in am, No arrhythmia. Patient vomiting, concern for aspiration, Chest xray ordered and no active disease noted. Keep HOB >45% 03/13: No evidence of aspiration on xray. Continue supportive care. 03/14: Continue supportive care. Capping trials to start. Discussed with patients nursing and case management to continue daily PT by the Rehab team. 03/15: Discussed again with staff to start capping trial. 03/16: Do not see any indication the capping trial has started will discuss with respiratory therapist. Continue restraints. Still awaiting family decision patient has had some remarkable improvement considering the fact that she was able to stay around night without restraints. We will continue daily trial of this method. Discussed plan with nursing staff 03/17: Continue current care. Currently continue restraints. Continue current management. Continue physical therapy daily. 03/18: Capping trial successful and will possibly get decannulated today. Continue placement. 03/19: Now decannulated and doing well. Begin discharge planning. 03/20: Stable, no new complaints. 03/21: No new complaints. Continue supportive 03/22: No new complaints, still with some confusion, and agitation requiring restraints. Will require daily PT/OT and continue to work with Case management for placement 03/23: continue current management, daily PT/OT. stoma care. No new seizure, slow but gradual improvement noted daily 03/24: Mr. Amaya is a 55-year-old female who presented to the hospital was admitted post cardiac arrest at home she has remarkably done well been extubated and decannulated with stoma healing. She still does experience some intermittent delirious process and as a result is on restraints. I have discussed with nursing staff to see if they can provide a sitter for her and continue daily PT as this will aid in reintroducing her to the community. Case management is working on placement for her. Will check labs in a.m. / Anoxic brain injury: suspected CT head: No acute abnormality. EEG ordered showed Generalized slowing. No seizures or epileptiform activity. -Patient now opening her eyes, can speak and able to follow command -As needed haldol for agitation /Acute Respiratory failure -due to MSSA PNA -s/p intubation, s/p trach and PEG on 12/12 with mechanical ventilation, now on T-piece - CTA was done and negative for PE, - Echo quality is poor, showed diastolic dysfunction - continue weaning as tolerated -Continue appropriate and adequate tracheostomy care /Tracheostomy site ulceration -Continue appropriate wound management try to keep area dry. /Anemia, microcytic - Status post 3 units PRBC transfusion, H&H low stable /Acute metabolic encephalopathy/toxic encephalopathy due to the above - cont supportive care /Hyperammonemia - likely from liver disease related to EtOH abuse - Patient had elevated ammonia level and treated with lactulose /Metabolic Acidosis -Alcohol ketoacidosis vs hypoprofusion -Continue to monitor /ELevated LFTs, stable now - due to ischemic hepatitis. /Leucocytosis with sepsis - Source MRSA bacteremia and MSSA pneumonia. UA showed pyuria. RUQ US showed no ascites. - Repeat TTE negative for vegetation. Completed 7 days of Ceftriaxone on 11/29/2019. -Treated with Abx vancomycin 1 gm IV q 12 hour total 2 week till 12/30/2019 /Severe protein calorie malnutrition Dietitian consult to assist in management. /MSSA pneumonia: Status post vancomycin till 12/30/2019 /Alcohol use Disorder - given ongoing Alcohol use almost daily, s/p IV Thiamine - monitor /Severe hypokalemia -Repleted /Seizure disorder: treat with Keppra /H. Influenzae, tracheobronchitis, treated with abx /Moderate to severe fecal impaction - will add stool softner DNR CODE STATUS Disposition: prognosis guarded. Family okay for DNR, PT recommended subacute rehab, discharge pending on placement. Negative for COVID 19 History Interval history: Patient seen and examined, resting comfortable. No new complaints. Exhibits more clarity today. Discussed with nursing staff Hospitalist Physical - Physical exam Narrative exam: General appearance: Present: Appears older than stated age, restful - EENT Eyes: no scleral icterus, no conjunctival injection, pupil not reactive ENT: clear oral mucosa, dentition normal, no oropharyngeal erythema Ears: bilateral: normal - Neck Neck: stoma clena and dry - Respiratory Respiratory effort: other dressing over the stoma Respiratory: bilateral: rales - Cardiovascular Rhythm: regular Heart Sounds: Present: S1 & S2. Absent: gallop, rub Extremities: pulses intact, No edema, normal color - Gastrointestinal General gastrointestinal: Present: soft, non-tender, non-distended, normal bowel sounds - Integumentary Integumentary: clear, warm, dry - Musculoskeletal Musculoskeletal: No joint swelling or tenderness - Neurologic Neurologic: other (2+ reflexes throughout). respond to commend answers questions appropriately today - Psychiatric Psychiatric: co-operative - Constitutional Vitals: Temp Pulse Resp BP Pulse Ox 98.0 F 94 H 18 117/79 100 03/24/20 04:15 03/24/20 02:58 03/24/20 04:15 03/24/20 04:15 03/23/20 23:41 General appearance: Present: mild distress, cachectic, disheveled, other (Noncommunicative) HEART Score - HEART Score Troponin: Troponin T < 0.010 ng/mL (0.00-0.029) 11/22/19 23:27 Results - Labs CBC & Chem 7: 03/12/20 04:53 03/13/20 03:50 Labs: Laboratory Last Values WBC 9.1 K/mm3 (4.5-11.0) 03/12/20 04:53 RBC 3.90 M/mm3 (3.65-5.03) 03/12/20 04:53 Hgb 11.5 gm/dl (10.1-14.3) 03/12/20 04:53 Hct 34.2 % (30.3-42.9) 03/12/20 04:53 MCV 88 fl (79-97) 03/12/20 04:53 MCH 29 pg (28-32) 03/12/20 04:53 MCHC 34 % (30-34) 03/12/20 04:53 RDW 14.4 % (13.2-15.2) 03/12/20 04:53 Plt Count 625 K/mm3 (140-440) H 03/12/20 04:53 Lymph % (Auto) 27.8 % (13.4-35.0) 03/06/20 03:37 [place] % (Auto) 9.1 % (0.0-7.3) H 03/06/20 03:37 Eos % (Auto) 2.8 % (0.0-4.3) 03/06/20 03:37 Baso % (Auto) 0.7 % (0.0-1.8) 03/06/20 03:37 Lymph # 2.2 K/mm3 (1.2-5.4) 03/06/20 03:37 [place] # 0.7 K/mm3 (0.0-0.8) 03/06/20 03:37 Eos # 0.2 K/mm3 (0.0-0.4) 03/06/20 03:37 Baso # 0.1 K/mm3 (0.0-0.1) 03/06/20 03:37 Add Manual Diff Complete 12/25/19 03:47 Total Counted 200 12/25/19 03:47 Seg Neutrophils % 59.6 % (40.0-70.0) 03/06/20 03:37 Seg Neuts % (Manual) 97.5 % (40.0-70.0) H 12/25/19 03:47 Band Neutrophils % 0 % 12/25/19 03:47 Lymphocytes % (Manual) 1.0 % (13.4-35.0) L 12/25/19 03:47 Reactive Lymphs % (Man) 0 % 12/25/19 03:47 Monocytes % (Manual) 1.5 % (0.0-7.3) 12/25/19 03:47 Eosinophils % (Manual) 0 % (0.0-4.3) 12/25/19 03:47 Basophils % (Manual) 0 % (0.0-1.8) 12/25/19 03:47 Metamyelocytes % 0 % 12/25/19 03:47 Myelocytes % 0 % 12/25/19 03:47 Promyelocytes % 0 % 12/25/19 03:47 Blast Cells % 0 % 12/25/19 03:47 Nucleated RBC % Not Reportable 12/25/19 03:47 Seg Neutrophils # 4.8 K/mm3 (1.8-7.7) 03/06/20 03:37 Seg Neutrophils # Man 35.3 K/mm3 (1.8-7.7) H 12/25/19 03:47 Band Neutrophils # 0.0 K/mm3 12/25/19 03:47 Lymphocytes # (Manual) 0.4 K/mm3 (1.2-5.4) L 12/25/19 03:47 Abs React Lymphs (Man) 0.0 K/mm3 12/25/19 03:47 Monocytes # (Manual) 0.5 K/mm3 (0.0-0.8) 12/25/19 03:47 Eosinophils # (Manual) 0.0 K/mm3 (0.0-0.4) 12/25/19 03:47 Basophils # (Manual) 0.0 K/mm3 (0.0-0.1) 12/25/19 03:47 Metamyelocytes # 0.0 K/mm3 12/25/19 03:47 Myelocytes # 0.0 K/mm3 12/25/19 03:47 Promyelocytes # 0.0 K/mm3 12/25/19 03:47 Blast Cells # 0.0 K/mm3 12/25/19 03:47 Pathologist Review 12/13/19 07:48 WBC Morphology Not Reportable 12/25/19 03:47 Hypersegmented Neuts Not Reportable 12/25/19 03:47 Hyposegmented Neuts Not Reportable 12/25/19 03:47 Hypogranular Neuts Not Reportable 12/25/19 03:47 Smudge Cells Not Reportable 12/25/19 03:47 Toxic Granulation Not Reportable 12/25/19 03:47 Toxic Vacuolation Not Reportable 12/25/19 03:47 Dohle Bodies Not Reportable 12/25/19 03:47 Pelger-Huet Anomaly Not Reportable 12/25/19 03:47 Dominique Rods Not Reportable 12/25/19 03:47 Platelet Estimate Consistent w auto 12/25/19 03:47 Clumped Platelets Not Reportable 12/25/19 03:47 Plt Clumps, EDTA Not Reportable 12/25/19 03:47 Large Platelets Not Reportable 12/25/19 03:47 Giant Platelets Not Reportable 12/25/19 03:47 Platelet Satelliting Not Reportable 12/25/19 03:47 Plt Morphology Comment Not Reportable 12/25/19 03:47 RBC Morphology Not Reportable 12/25/19 03:47 Dimorphic RBCs Not Reportable 12/25/19 03:47 Polychromasia Not Reportable 12/25/19 03:47 Hypochromasia Not Reportable 12/25/19 03:47 Poikilocytosis Not Reportable 12/25/19 03:47 Anisocytosis 1+ 12/25/19 03:47 Microcytosis Not Reportable 12/25/19 03:47 Macrocytosis Not Reportable 12/25/19 03:47 Spherocytes Not Reportable 12/25/19 03:47 Pappenheimer Bodies Not Reportable 12/25/19 03:47 Sickle Cells Not Reportable 12/25/19 03:47 Target Cells Not Reportable 12/25/19 03:47 Tear Drop Cells Not Reportable 12/25/19 03:47 Ovalocytes Not Reportable 12/25/19 03:47 Helmet Cells Not Reportable 12/25/19 03:47 [place] Bodies Not Reportable 12/25/19 03:47 [place] Rings Not Reportable 12/25/19 03:47 Jamshid Cells Not Reportable 12/25/19 03:47 Bite Cells Not Reportable 12/25/19 03:47 Crenated Cell Not Reportable 12/25/19 03:47 Elliptocytes Not Reportable 12/25/19 03:47 Acanthocytes (Spur) Not Reportable 12/25/19 03:47 Rouleaux Not Reportable 12/25/19 03:47 Hemoglobin C Crystals Not Reportable 12/25/19 03:47 Schistocytes Not Reportable 12/25/19 03:47 Malaria parasites Not Reportable 12/25/19 03:47 Gregg Bodies Not Reportable 12/25/19 03:47 Hem Pathologist Commnt No 12/25/19 03:47 PT 17.0 Sec. (12.2-14.9) H 11/23/19 03:47 INR 1.36 (0.87-1.13) H 11/23/19 03:47 APTT 128.2 Sec. (24.2-36.6) H* 11/23/19 03:47 Heparin Anti-Xa Level 0.31 U.I./ml (0.3-0.7) 11/23/19 09:03 ABG pH 7.433 pH Units (7.350-7.450) 03/08/20 13:25 ABG pCO2 40.2 mm Hg 03/08/20 13:25 ABG pO2 71.1 mm Hg (80.0-90.0) L 03/08/20 13:25 ABG HCO3 26.2 mmol/L (20.0-26.0) H 03/08/20 13:25 ABG O2 Saturation 97.0 % (95.0-99.0) 03/08/20 13:25 ABG O2 Content 11.0 (0.0-44) 03/08/20 13:25 ABG Base Excess 1.8 mmol/L (-2.0-3.0) 03/08/20 13:25 ABG Hemoglobin 8.2 gm/dl (12.0-16.0) L 03/08/20 13:25 ABG Carboxyhemoglobin 1.7 % (0.0-5.0) 03/08/20 13:25 ABG Methemoglobin 0.5 % (0.0-1.5) 03/08/20 13:25 Oxyhemoglobin 94.8 % (95.0-99.0) L 03/08/20 13:25 FiO2 21 % 03/08/20 13:25 Sodium 137 mmol/L (137-145) 03/13/20 03:50 Potassium 3.8 mmol/L (3.6-5.0) D 03/13/20 03:50 Chloride 103.1 mmol/L (98-107) 03/13/20 03:50 Carbon Dioxide 20 mmol/L (22-30) L 03/13/20 03:50 Anion Gap 18 mmol/L 03/13/20 03:50 BUN 30 mg/dL (7-17) H 03/13/20 03:50 Creatinine 0.6 mg/dL (0.7-1.2) L 03/13/20 03:50 Estimated GFR > 60 ml/min 03/13/20 03:50 BUN/Creatinine Ratio 50 % 03/13/20 03:50 Glucose 153 mg/dL (65-100) H 03/13/20 03:50 POC Glucose 122 (70-105) H 03/24/20 06:33 Lactic Acid 1.80 mmol/L (0.7-2.0) 11/25/19 05:05 Calcium 10.0 mg/dL (8.4-10.2) 03/13/20 03:50 Ionized Calcium 4.5 mg/dL (4.8-5.6) L 11/23/19 06:32 Phosphorus 4.20 mg/dL (2.5-4.5) D 11/28/19 08:59 Magnesium 1.90 mg/dL (1.7-2.3) 02/28/20 03:40 Total Bilirubin 0.40 mg/dL (0.1-1.2) 12/13/19 07:48 AST 27 units/L (5-40) 12/13/19 07:48 ALT 26 units/L (7-56) 12/13/19 07:48 Alkaline Phosphatase 316 units/L (35-129) H 12/13/19 07:48 Ammonia 42.0 umol/L (25-60) 11/29/19 13:41 Total Creatine Kinase 139 units/L (30-135) H 11/22/19 23:27 CK-MB (CK-2) 8.3 ng/mL (0.0-4.0) H 11/22/19 23:27 CK-MB (CK-2) Rel Index 5.9 (0-4) H 11/22/19 23:27 Troponin T < 0.010 ng/mL (0.00-0.029) 11/22/19 23:27 Total Protein 6.8 g/dL (6.3-8.2) 12/13/19 07:48 Albumin 2.4 g/dL (3.9-5) L 12/13/19 07:48 Albumin/Globulin Ratio 0.5 % 12/13/19 07:48 Lipase 18 units/L (13-60) 11/23/19 00:34 Procalcitonin 1.09 ng/mL (<0.15) 11/23/19 04:53 TSH 1.010 mlU/mL (0.270-4.200) 02/12/20 07:36 Free T4 1.08 ng/dL (0.76-1.46) 02/12/20 07:36 Urine Color Yellow (Yellow) 12/16/19 Unknown Urine Turbidity Slightly-cloudy (Clear) 12/16/19 Unknown Urine pH 5.0 (5.0-7.0) 12/16/19 Unknown Ur Specific [place] 1.018 (1.003-1.030) 12/16/19 Unknown Urine Protein 30 mg/dl mg/dL (Negative) 12/16/19 Unknown Urine Glucose (UA) Neg mg/dL (Negative) 12/16/19 Unknown Urine Ketones Neg mg/dL (Negative) 12/16/19 Unknown Urine Blood Sm (Negative) 12/16/19 Unknown Urine Nitrite Neg (Negative) 12/16/19 Unknown Urine Bilirubin Neg (Negative) 12/16/19 Unknown Urine Urobilinogen < 2.0 mg/dL (<2.0) 12/16/19 Unknown Ur Leukocyte Esterase Neg (Negative) 12/16/19 Unknown Urine WBC (Auto) 6.0 /HPF (0.0-6.0) 12/16/19 Unknown Urine RBC (Auto) 9.0 /HPF (0.0-6.0) 12/16/19 Unknown U Epithel Cells (Auto) < 1.0 /HPF (0-13.0) 12/16/19 Unknown Urine Bacteria (Auto) 2+ /HPF (Negative) 11/22/19 23:17 Hyaline Casts 3 /LPF 12/16/19 Unknown Granular Casts 3 /LPF 12/16/19 Unknown Urine Mucus Few /HPF 12/16/19 Unknown Vancomycin Trough 33.8 ug/mL (5.0-20.0) H 12/21/19 08:56 Random Vancomycin 16.2 ug/mL (0-40.0) 12/24/19 04:31 Salicylates < 0.3 mg/dL (2.8-20.0) L 11/22/19 23:27 Urine Opiates Screen Presumptive negative 11/22/19 23:17 Urine Methadone Screen Presumptive negative 11/22/19 23:17 Acetaminophen < 5.0 ug/mL (10.0-30.0) L 11/22/19 23:27 Ur Barbiturates Screen Presumptive negative 11/22/19 23:17 Ur Phencyclidine Scrn Presumptive negative 11/22/19 23:17 Ur Amphetamines Screen Presumptive negative 11/22/19 23:17 U Benzodiazepines Scrn Presumptive negative 11/22/19 23:17 Urine Cocaine Screen Presumptive negative 11/22/19 23:17 U Marijuana (THC) Screen Presumptive negative 11/22/19 23:17 Drugs of Abuse Note Disclamer 11/22/19 23:17 Plasma/Serum Alcohol 0.08 % (0-0.07) H 11/22/19 23:27 Coronavirus (PCR) Negative (Negative) 02/05/20 07:50 Hepatitis A IgM Ab Non-reactive (NonReactive) 11/23/19 01:19 Hep Bs Antigen Non-reactive (Negative) 11/23/19 01:19 Hep B Core IgM Ab Non-reactive (NonReactive) 11/23/19 01:19 Hepatitis C Antibody Non-reactive (NonReactive) 11/23/19 01:19 Blood Type O POSITIVE 12/21/19 14:54 Antibody Screen Negative 12/21/19 14:54 Crossmatch See Detail 12/21/19 14:54 - Diagnostic Impressions Diagnostic Impressions: Echocardiogram 11/23/19 03:58 Transthoracic Echocardiogram Indication: Cardiac arrest BP: 131/89 HR: 115 Conclusions *The study quality is technically difficult. *Global left ventricular wall motion and contractility are within normal limits. *The estimated ejection fraction is 55-60%. *Abnormal left ventricular diastolic filling is observed, consistent with impaired relaxation. *There is no pericardial effusion. Findings Procedure Info: The study quality is technically difficult. The study was technically limited due to the patient's inability to lay in the left lateral decubitus position. Left Ventricle: The left ventricular chamber size is normal. There is no left ventricular hypertrophy. Global left ventricular wall motion and contractility are within normal limits. Global left ventricular systolic function is normal. The estimated ejection fraction is 55-60%. Abnormal left ventricular diastolic filling is observed, consistent with impaired relaxation. Left Atrium: The left atrial chamber size is normal. Aortic Valve: The aortic valve leaflets are mildly thickened. Mitral Valve: The mitral valve leaflets are mildly thickened. There is no evidence of mitral regurgitation. Tricuspid Valve: The tricuspid valve leaflets are normal. There is trace tricuspid regurgitation. The right ventricular systolic pressure is calculated at 33 mmHg. Pulmonic Valve: The pulmonic valve appears normal. Pericardium: The pericardium appears normal. There is no pericardial effusion. Aorta: The aorta appears normal. Venous: The inferior vena cava appears normal in size. Measurements Chambers 2D Name Value Normal Range IVSd (2D) 0.94 cm (0.6 - 1.1) LVPWd (2D) 0.81 cm (0.6 - 1.1) LVIDd (2D) 3.6 cm (3.7 - 5.6) LVIDs (2D) 2.27 cm (2 - 3.8) LV FS (2D) 36.93 % - EF Teichholz (2D) 67.76 % - Ao root diameter (2D) 3.03 cm (2 - 3.7) Volumes/Mass Name Value Normal Range LA ESV SP 4CH (A/L) 16.89 ml - LA ESV SP 4CH (MOD) 15.52 ml - Diastolic/Systolic Function Name Value Normal Range MV E-wave Vmax 0.55 m/sec - MV deceleration time 200.89 msec - MV A-wave Vmax 0.68 m/sec - MV E:A ratio 0.82 ratio - Aortic Valve Name Value Normal Range AV Vmax 1.1 m/sec - AV VTI 15.9 cm - AV peak gradient 4.86 mmHg - AV mean gradient 2.59 mmHg - LVOT diameter 2 cm - LVOT Vmax 1.03 m/sec - LVOT VTI 15.87 cm - LVOT peak gradient 4.24 mmHg - LVOT mean gradient 2.41 mmHg - SV LVOT 49.77 ml - JOSÉ MIGUEL (continuity Vmax) 2.93 cm2 - JOSÉ MIGUEL (continuity VTI) 3.13 cm2 - Tricuspid Valve Name Value Normal Range TR Vmax 2.74 m/sec - TR peak gradient 303 mmHg - RAP 3 mmHg - RVSP 33 mmHg - IVC diameter 1.77 cm (1.2 - 2.3) Pulmonic Valve/Qp:Qs Name Value Normal Range PV Vmax 0.77 m/sec - PV peak gradient 2.4 mmHg - PV acceleration time 114.18 msec - Echocardiogram Limited Views 12/17/19 14:53 Transthoracic Echocardiogram Indication: R/O Vegetations BP: 144/83 HR: 133 Conclusions *Global left ventricular systolic function is mildly decreased. *The estimated ejection fraction is 45-50%. *A trivial pericardial effusion is visualized. Findings Left Ventricle: The left ventricular chamber size is normal. Global left ventricular systolic function is mildly decreased. The estimated ejection fraction is 45-50%. Left Atrium: The left atrial chamber size is normal. Right Ventricle: The right ventricular cavity size is normal. Right Atrium: The right atrial cavity size is normal. Aortic Valve: The aortic valve is not well visualized. There is no evidence of aortic regurgitation. Mitral Valve: The mitral valve leaflets are mildly thickened. There is trace of mitral regurgitation. Tricuspid Valve: The tricuspid valve leaflets are mildly thickened. There is trace tricuspid regurgitation. The right ventricular systolic pressure is calculated at 29 mmHg. Pulmonic Valve: The pulmonic valve is not well visualized. There is no evidence of pulmonic regurgitation. Pericardium: A trivial pericardial effusion is visualized. Aorta: There is no dilatation of the ascending aorta. There is no dilatation of the aortic root. Venous: The inferior vena cava appears normal in size. There is a greater than 50% respiratory change in the inferior vena cava dimension. Measurements Chambers 2D Name Value Normal Range IVSd (2D) 0.83 cm (0.6 - 1.1) LVPWd (2D) 0.98 cm (0.6 - 1.1) LVIDd (2D) 3.71 cm (3.7 - 5.6) LVIDs (2D) 2.93 cm (2 - 3.8) LV FS (2D) 21.12 % - EF Teichholz (2D) 43.71 % - Ao root diameter (2D) 3.02 cm (2 - 3.7) Volumes/Mass Name Value Normal Range LA ESV SP 4CH (A/L) 36.8 ml - LA ESV SP 2CH (A/L) 45.89 ml - LA ESV BP (A/L) 42.35 ml - LA ESV BP (A/L) index 26.63 ml/m2 - LA ESV SP 4CH (MOD) 34.42 ml - LA ESV SP 2CH (MOD) 44.21 ml - LA ESV BP (MOD) 39.82 ml - LA ESV BP (MOD) index 25.05 ml/m2 - Aortic Valve Name Value Normal Range LVOT diameter 1.63 cm - Tricuspid Valve Name Value Normal Range TR Vmax 2.56 m/sec - TR peak gradient 26 mmHg - RAP 3 mmHg - RVSP 29 mmHg - IVC diameter 1.83 cm (1.2 - 2.3) Dela Cruz/IV: Voiding Method Incontinent IV Catheter Type [Forearm] Peripheral IV IV Catheter Type [Left Forearm INT / Saline Lock ] IV Catheter Type [Right INT / Saline Lock Antecubital] IV Catheter Type [Right Hand] INT / Saline Lock IV Catheter Type [Right Wrist] Peripheral IV IV Catheter Type [Left Wrist] Peripheral IV IV Catheter Type [Left Peripheral IV Antecubital] IV Catheter Type [Right INT / Saline Lock Forearm] IV Catheter Type [Left Hand] INT / Saline Lock Active Medications - Current Medications Current Medications: Generic Name Dose Route Start Last Admin Trade Name Luh PRN Reason Stop Dose Admin Acetaminophen 650 mg 12/06/19 10:25 03/23/20 22:36 Tylenol FEEDTUBE 650 mg Q6H PRN Administration TEMP >/=100.3 Acetylcysteine 200 mg 02/16/20 20:00 03/24/20 07:53 Mucomyst Inhalation INHALATION Not Given Q12HRT LUCHO Albuterol/Ipratropium 1 ampul 03/18/20 20:00 03/24/20 07:52 Duoneb *Not For Prn Use* IH 1 ampul Q6HRT LUCHO Administration Lipase/Protease/Amylase 1 each 11/23/19 11:50 Pancrestefani Crenshaw 10,500 Unit FEEDTUBE PRN PRN Use w/ sod bicarb for FT Bisacodyl 10 mg 02/06/20 13:57 Dulcolax AL QDAY PRN Constipation unrelieved by MOM Enoxaparin Sodium 40 mg 03/07/20 22:00 03/23/20 22:37 Enoxaparin SUB-Q 40 mg QDAY@2200 LUCHO Administration Glycopyrrolate 2 mg 12/31/19 20:00 03/23/20 22:36 Robinul PO 2 mg TID LUCHO Administration Haloperidol Lactate 5 mg 03/05/20 09:22 03/23/20 20:59 Haldol IM 5 mg Q6H PRN Administration Agitation Hydralazine HCl 10 mg 11/24/19 00:45 03/03/20 05:57 Apresoline IV 10 mg Q6H PRN Administration SBP > 160 Hydroxyzine Pamoate 25 mg 12/06/19 10:00 03/23/20 22:36 Vistaril PO 25 mg BID LUCHO Administration Lansoprazole 30 mg 11/27/19 10:00 03/23/20 09:19 Prevacid Solutab FEEDTUBE 30 mg QDAY LUCHO Administration Levetiracetam 500 mg 11/29/19 10:00 03/23/20 22:37 Keppra PO 500 mg BID LUCHO Administration Metoprolol Tartrate 12.5 mg 02/23/20 22:00 03/23/20 22:37 Metoprolol PO 12.5 mg BID LUCHO Administration Mirtazapine 30 mg 12/06/19 10:00 03/23/20 09:10 Remeron PO 30 mg DAILY LUCHO Administration Nicotine 21 mg 02/16/20 13:00 03/23/20 09:09 Habitrol TD 21 mg QDAY LUCHO Administration Ondansetron HCl 4 mg 12/10/19 07:53 02/25/20 02:51 Zofran IV 4 mg Q4H PRN Administration Nausea And Vomiting Polyethylene Glycol 17 gm 02/06/20 13:57 Miralax 3350 PO QDAY PRN Constipation Quetiapine Fumarate 100 mg 03/06/20 10:00 03/23/20 22:36 Seroquel FEEDTUBE 100 mg BID LUCHO Administration Scopolamine 1 each 02/08/20 15:00 07/03/20 10:29 Transderm-Scop TD 1 each Q3D LUCHO Administration Sertraline HCl 25 mg 01/01/20 10:00 03/23/20 09:09 Zoloft PO 25 mg QDAY LUCHO Administration Simple Syrup 15 ml 11/23/19 11:50 Simple Syrup FEEDTUBE PRN PRN Hypoglycemia BG<70 Simple Syrup 30 ml 11/23/19 11:50 Simple Syrup FEEDTUBE PRN PRN Hypoglycemia Sodium Bicarbonate 325 mg 11/23/19 11:50 Sodium Bicarbonate FEEDTUBE PRN PRN For Clogged Feeding Tube Nutrition/Malnutrition Assess - Dietary Evaluation Nutrition/Malnutrition Findings: Nutrition Notes Start: 11/23/19 11:29 Freq: Status: Active Protocol: Document 03/20/20 12:53 LM (Rec: 03/20/20 12:55 LM [email or web address]) Nutrition Notes Initial or Follow up Reassessment Current Diagnosis Hypertension Other Pertinent Diagnosis Cardaic arrest, ETOH dependence, UTI Current Diet Jevity 1.2 at 60ml/hr Labs/Tests Reviewed Pertinent Medications Reviewed Height 5 ft 6 in Weight 45.6 kg Tat[place] Body Weight (kg) 59.09 BMI 16.2 Subjective/Other Information TF running at goal. Percent of energy/protein needs met: 100%/100% Burn Absent Trauma Absent GI Symptoms None Current % PO Negligible Interpretation of Weight Loss (severe) >2% in 1 week Muscle Mass Mild Depletion (non-severe) #2 Nutrition Diagnosis Malnutrition Diagnosis Progress(for reassessment Continues documentation) #1 Nutrition Diagnosis Inadequate oral intake Diagnosis Progress(for reassessment Continues documentation) Is patient on ventilator? No Is Patient Ambulatory and/or Out of Bed No REE-([facility]-confined to bed) 1286.028 Kcal/Kg value to use for calculation 38 Approximate Energy Requirements Using 1733 kcal/Kg Calculation Used for Recommendations Kcal/kg Additional Notes Protein: 60-75g (1.2-1.5g/kg) Fluid: 1 ml/kcal Nutrition Intervention Change Diet Order: Continue TF Nutrition Support: Jevity 1.2 at 60ml/hr Flush 100ml q4h Kcal 1,728 Protein (gm) 80 Fluid (mL) 1,162 Goal #1 TF tolerance Goal #2 Meet at least 80% of energy and protein needs via TF Goal #3 Wt gain/maintenacne Anticipated Discharge Needs: TF Follow-Up By: 03/27/20 Additional Comments F/u for TF tolerance
[2020-03-24] MEDS: GLYCOPYRROLATE 1 MG TAB PO SCH ×3 (08:58→21:46)
[2020-03-24] MEDS: MIRTAZAPINE 30 MG TAB PO SCH (09:00)
[2020-03-24] MEDS: hydrOXYzine PAMOATE 25 MG CAP PO SCH ×2 (09:00→21:46)
[2020-03-24] MEDS: SCOPOLAMINE TRANSDERMAL PATCH 72 HR TD SCH (09:00)
[2020-03-24] MEDS: NICOTINE 21 MG/24 HR PATCH TD SCH (09:01)
[2020-03-24] MEDS: LANSOPRAZOLE 30 MG SOLUTAB FEEDTUBE SCH (09:01)
[2020-03-24] MEDS: METOPROLOL TARTRATE 25 MG TAB PO SCH ×2 (09:01→21:46)
[2020-03-24] MEDS: levETIRAcetam 500 MG/5 ML ORAL LIQD PO SCH ×2 (09:01→21:46)
[2020-03-24] MEDS: QUEtiapine 100 MG TAB FEEDTUBE SCH ×2 (09:02→21:46)
[2020-03-24] MEDS: SERTRALINE 50 MG TAB PO SCH (09:03)
[2020-03-24] MEDS: HALOPERIDOL LACTATE 5 MG/1 ML INJ IM PRN (15:48)
[2020-03-24] MEDS: ACETAMINOPHEN 325 MG/10.15 ML ORAL LIQD UNIT DOSE FEEDTUBE PRN (17:33)
[2020-03-24] MEDS: ENOXAPARIN 40 MG/0.4 ML INJ SUB-Q SCH (21:46)
[2020-03-25] MEDS: HALOPERIDOL LACTATE 5 MG/1 ML INJ IM PRN (00:17)
[2020-03-25] MEDS: ACETAMINOPHEN 325 MG/10.15 ML ORAL LIQD UNIT DOSE FEEDTUBE PRN (00:17)
[2020-03-25] MEDS: IPRATROPIUM/ALBUTEROL SULFATE 3 ML AMPUL.NEB IH SCH ×4 (01:38→19:14)
[2020-03-25 05:10] LABS: Hematocrit 32.5 % (30.3-42.9); Hemoglobin 10.8 gm/dl (10.1-14.3); Mean Corpuscular HGB Conc 33 % (30-34); Mean Corpuscular Volume 89 fl (79-97); Platelet Count 423 K/mm3 (140-440); Red Blood Count 3.65 M/mm3 (3.65-5.03); Red Cell Distribution Width 14.1 % (13.2-15.2)
[2020-03-25 05:34] LABS: BUN/Creatinine Ratio 46; Blood Urea Nitrogen 23 mg/dL (7-17); Calcium 10.3 mg/dL (8.4-10.2); Hemolysis Index 9
[2020-03-25] MEDS: GLYCOPYRROLATE 1 MG TAB PO SCH ×3 (08:27→22:29)
--- NOTE | 2020-03-25 10:12 | Progress Note ---
Assessment and Plan Assessment and plan: 54-year-old female with a past medical history of Hypertension, Depression, Tobacco use Disorder, Alcohol use Disorder as confirmed by Daughter and pt's mother presents to the hospital status post cardiac arrest at home. EMS found pt in [facility]. They were unable to intubate patient with a ET tube because she was clenching down therefore Joe airway placed. Per the ED physician who evaluated pt, Patient presented with a pulse, intermittent respirations, and bagging support via Joe airway with O2 sat of 100%. Accu-Chek of 71 obtained by EMS. She was intubated in the ER and called for admission. Following admission patient was diagnosed with anoxic brain injury, sepsis with MRSA bacteremia and MSSA pneumonia, alcoholic liver disease. Family member initially wished for full code then changed to DNR, patient treated with IV antibiotics for sepsis, status post trach and PEG on 12/13/19. Weaned off from the vent and put on T- piece. Patient is uninsured, waiting for placement, guarded prognosis. Anoxic brain injury: suspected CT head: No acute abnormality. EEG ordered showed Generalized slowing. No seizures or epileptiform activity. -Patient now opening her eyes, can speak and able to follow command -As needed haldol for agitation Acute Respiratory failure -due to MSSA PNA -s/p intubation, s/p trach and PEG on 12/12 with mechanical ventilation, now on T-piece - CTA was done and negative for PE, - Echo quality is poor, showed diastolic dysfunction - continue weaning as tolerated -Continue appropriate and adequate tracheostomy care Tracheostomy site ulceration -Continue appropriate wound management try to keep area dry. Anemia, microcytic - Status post 3 units PRBC transfusion, H&H low stable Acute metabolic encephalopathy/toxic encephalopathy due to the above - cont supportive care Hyperammonemia - likely from liver disease related to EtOH abuse - Patient had elevated ammonia level and treated with lactulose Metabolic Acidosis -Alcohol ketoacidosis vs hypoprofusion -Continue to monitor ELevated LFTs, stable now - due to ischemic hepatitis. Leucocytosis with sepsis - Source MRSA bacteremia and MSSA pneumonia. UA showed pyuria. RUQ US showed no ascites. - Repeat TTE negative for vegetation. Completed 7 days of Ceftriaxone on 11/29/2019. -Treated with Abx vancomycin 1 gm IV q 12 hour total 2 week till 12/30/2019 Severe protein calorie malnutrition Dietitian following MSSA pneumonia: Status post vancomycin till 12/30/2019 Alcohol use Disorder - given ongoing Alcohol use almost daily, s/p IV Thiamine - monitor Severe hypokalemia -Repleted Seizure disorder: treated with Keppra H. Influenzae, tracheobronchitis, treated with abx Moderate to severe fecal impaction - will add stool softner DNR CODE STATUS Disposition: prognosis guarded. Family okay for DNR, PT recommended subacute rehab, discharge pending on placement. Negative for COVID 19 03/07: Returning to service no acute changes are noted. Continue current management while awaiting placement. Intermittent labs. Base of neck also around tracheostomy tube preventing downgrading. Continue appropriate wound care. 03/08: Plan of care unchanged continues on aerosol trach collar 28% of oxygen. Continue wound care management placement still pending status decision. 03/09: Continue current treatment plan. Continue aspiration precaution 03/10: Continue current management, Restraints as patient still pulling, awaiting placement 03/11: Continue supportive care, intermittent suctioning and pulmonary toilet. awaiting placement. 03/12: Continue supportive care, Give a bolus of fluids due to Hypercalcemia, Monitor Hyperkalemia with labs in am, No arrhythmia. Patient vomiting, concern for aspiration, Chest xray ordered and no active disease noted. Keep HOB >45% 03/13: No evidence of aspiration on xray. Continue supportive care. 03/14: Continue supportive care. Capping trials to start. Discussed with patients nursing and case management to continue daily PT by the Rehab team. 03/15: Discussed again with staff to start capping trial. 03/16: Do not see any indication the capping trial has started will discuss with respiratory therapist. Continue restraints. Still awaiting family decision patient has had some remarkable improvement considering the fact that she was able to stay around night without restraints. We will continue daily trial of this method. Discussed plan with nursing staff 03/17: Continue current care. Currently continue restraints. Continue current management. Continue physical therapy daily. 03/18: Capping trial successful and will possibly get decannulated today. Continue placement. 03/19: Now decannulated and doing well. Begin discharge planning. 03/20: Stable, no new complaints. 03/21: No new complaints. Continue supportive 03/22: No new complaints, still with some confusion, and agitation requiring restraints. Will require daily PT/OT and continue to work with Case management for placement 03/23: continue current management, daily PT/OT. stoma care. No new seizure, slow but gradual improvement noted daily 03/24: Mr. Amaya is a 55-year-old female who presented to the hospital was admitted post cardiac arrest at home she has remarkably done well been extubated and decannulated with stoma healing. She still does experience some intermittent delirious process and as a result is on restraints. I have discussed with nursing staff to see if they can provide a sitter for her and continue daily PT as this will aid in reintroducing her to the community. Case management is working on placement for her. Will check labs in a.m. 03/25/2020. Patient is s/p cardiac arrest, extubated and decannulated with stoma healing. Await placement per case management. History Interval history: No new issues overnight. Hospitalist Physical - Constitutional Vitals: Temp Pulse Resp BP Pulse Ox 97.9 F 98 H 22 116/74 98 03/25/20 04:43 03/25/20 04:43 03/25/20 04:43 03/25/20 04:43 03/25/20 04:43 General appearance: Present: mild distress, cachectic, disheveled, other (Noncommunicative) - EENT Eyes: Present: PERRL, EOM intact ENT: hearing intact, clear oral mucosa, dentition normal - Neck Neck: Present: supple, normal ROM - Respiratory Respiratory effort: normal Respiratory: bilateral: CTA - Cardiovascular Rhythm: regular Heart Sounds: Present: S1 & S2. Absent: gallop, rub - Extremities Extremities: no ischemia, No edema, Full ROM - Abdominal General gastrointestinal: soft, non-tender, non-distended, normal bowel sounds - Integumentary Integumentary: Present: clear, warm, dry - Neurologic Neurologic: CNII-XII intact, moves all extremities HEART Score - HEART Score Troponin: Troponin T < 0.010 ng/mL (0.00-0.029) 11/22/19 23:27 Results - Labs CBC & Chem 7: 03/25/20 04:28 03/25/20 04:28 Labs: Laboratory Last Values WBC 9.0 K/mm3 (4.5-11.0) 03/25/20 04:28 RBC 3.65 M/mm3 (3.65-5.03) 03/25/20 04:28 Hgb 10.8 gm/dl (10.1-14.3) 03/25/20 04:28 Hct 32.5 % (30.3-42.9) 03/25/20 04:28 MCV 89 fl (79-97) 03/25/20 04:28 MCH 30 pg (28-32) 03/25/20 04:28 MCHC 33 % (30-34) 03/25/20 04:28 RDW 14.1 % (13.2-15.2) 03/25/20 04:28 Plt Count 423 K/mm3 (140-440) 03/25/20 04:28 Lymph % (Auto) 27.8 % (13.4-35.0) 03/06/20 03:37 [place] % (Auto) 9.1 % (0.0-7.3) H 03/06/20 03:37 Eos % (Auto) 2.8 % (0.0-4.3) 03/06/20 03:37 Baso % (Auto) 0.7 % (0.0-1.8) 03/06/20 03:37 Lymph # 2.2 K/mm3 (1.2-5.4) 03/06/20 03:37 Hudson # 0.7 K/mm3 (0.0-0.8) 03/06/20 03:37 Eos # 0.2 K/mm3 (0.0-0.4) 03/06/20 03:37 Baso # 0.1 K/mm3 (0.0-0.1) 03/06/20 03:37 Add Manual Diff Complete 12/25/19 03:47 Total Counted 200 12/25/19 03:47 Seg Neutrophils % 59.6 % (40.0-70.0) 03/06/20 03:37 Seg Neuts % (Manual) 97.5 % (40.0-70.0) H 12/25/19 03:47 Band Neutrophils % 0 % 12/25/19 03:47 Lymphocytes % (Manual) 1.0 % (13.4-35.0) L 12/25/19 03:47 Reactive Lymphs % (Man) 0 % 12/25/19 03:47 Monocytes % (Manual) 1.5 % (0.0-7.3) 12/25/19 03:47 Eosinophils % (Manual) 0 % (0.0-4.3) 12/25/19 03:47 Basophils % (Manual) 0 % (0.0-1.8) 12/25/19 03:47 Metamyelocytes % 0 % 12/25/19 03:47 Myelocytes % 0 % 12/25/19 03:47 Promyelocytes % 0 % 12/25/19 03:47 Blast Cells % 0 % 12/25/19 03:47 Nucleated RBC % Not Reportable 12/25/19 03:47 Seg Neutrophils # 4.8 K/mm3 (1.8-7.7) 03/06/20 03:37 Seg Neutrophils # Man 35.3 K/mm3 (1.8-7.7) H 12/25/19 03:47 Band Neutrophils # 0.0 K/mm3 12/25/19 03:47 Lymphocytes # (Manual) 0.4 K/mm3 (1.2-5.4) L 12/25/19 03:47 Abs React Lymphs (Man) 0.0 K/mm3 12/25/19 03:47 Monocytes # (Manual) 0.5 K/mm3 (0.0-0.8) 12/25/19 03:47 Eosinophils # (Manual) 0.0 K/mm3 (0.0-0.4) 12/25/19 03:47 Basophils # (Manual) 0.0 K/mm3 (0.0-0.1) 12/25/19 03:47 Metamyelocytes # 0.0 K/mm3 12/25/19 03:47 Myelocytes # 0.0 K/mm3 12/25/19 03:47 Promyelocytes # 0.0 K/mm3 12/25/19 03:47 Blast Cells # 0.0 K/mm3 12/25/19 03:47 Pathologist Review 12/13/19 07:48 WBC Morphology Not Reportable 12/25/19 03:47 Hypersegmented Neuts Not Reportable 12/25/19 03:47 Hyposegmented Neuts Not Reportable 12/25/19 03:47 Hypogranular Neuts Not Reportable 12/25/19 03:47 Smudge Cells Not Reportable 12/25/19 03:47 Toxic Granulation Not Reportable 12/25/19 03:47 Toxic Vacuolation Not Reportable 12/25/19 03:47 Dohle Bodies Not Reportable 12/25/19 03:47 Pelger-Huet Anomaly Not Reportable 12/25/19 03:47 Dominique Rods Not Reportable 12/25/19 03:47 Platelet Estimate Consistent w auto 12/25/19 03:47 Clumped Platelets Not Reportable 12/25/19 03:47 Plt Clumps, EDTA Not Reportable 12/25/19 03:47 Large Platelets Not Reportable 12/25/19 03:47 Giant Platelets Not Reportable 12/25/19 03:47 Platelet Satelliting Not Reportable 12/25/19 03:47 Plt Morphology Comment Not Reportable 12/25/19 03:47 RBC Morphology Not Reportable 12/25/19 03:47 Dimorphic RBCs Not Reportable 12/25/19 03:47 Polychromasia Not Reportable 12/25/19 03:47 Hypochromasia Not Reportable 12/25/19 03:47 Poikilocytosis Not Reportable 12/25/19 03:47 Anisocytosis 1+ 12/25/19 03:47 Microcytosis Not Reportable 12/25/19 03:47 Macrocytosis Not Reportable 12/25/19 03:47 Spherocytes Not Reportable 12/25/19 03:47 Pappenheimer Bodies Not Reportable 12/25/19 03:47 Sickle Cells Not Reportable 12/25/19 03:47 Target Cells Not Reportable 12/25/19 03:47 Tear Drop Cells Not Reportable 12/25/19 03:47 Ovalocytes Not Reportable 12/25/19 03:47 Helmet Cells Not Reportable 12/25/19 03:47 [place] Bodies Not Reportable 12/25/19 03:47 [place] Rings Not Reportable 12/25/19 03:47 Jamshid Cells Not Reportable 12/25/19 03:47 Bite Cells Not Reportable 12/25/19 03:47 Crenated Cell Not Reportable 12/25/19 03:47 Elliptocytes Not Reportable 12/25/19 03:47 Acanthocytes (Spur) Not Reportable 12/25/19 03:47 Rouleaux Not Reportable 12/25/19 03:47 Hemoglobin C Crystals Not Reportable 12/25/19 03:47 Schistocytes Not Reportable 12/25/19 03:47 Malaria parasites Not Reportable 12/25/19 03:47 Gregg Bodies Not Reportable 12/25/19 03:47 Hem Pathologist Commnt No 12/25/19 03:47 PT 17.0 Sec. (12.2-14.9) H 11/23/19 03:47 INR 1.36 (0.87-1.13) H 11/23/19 03:47 APTT 128.2 Sec. (24.2-36.6) H* 11/23/19 03:47 Heparin Anti-Xa Level 0.31 U.I./ml (0.3-0.7) 11/23/19 09:03 ABG pH 7.433 pH Units (7.350-7.450) 03/08/20 13:25 ABG pCO2 40.2 mm Hg 03/08/20 13:25 ABG pO2 71.1 mm Hg (80.0-90.0) L 03/08/20 13:25 ABG HCO3 26.2 mmol/L (20.0-26.0) H 03/08/20 13:25 ABG O2 Saturation 97.0 % (95.0-99.0) 03/08/20 13:25 ABG O2 Content 11.0 (0.0-44) 03/08/20 13:25 ABG Base Excess 1.8 mmol/L (-2.0-3.0) 03/08/20 13:25 ABG Hemoglobin 8.2 gm/dl (12.0-16.0) L 03/08/20 13:25 ABG Carboxyhemoglobin 1.7 % (0.0-5.0) 03/08/20 13:25 ABG Methemoglobin 0.5 % (0.0-1.5) 03/08/20 13:25 Oxyhemoglobin 94.8 % (95.0-99.0) L 03/08/20 13:25 FiO2 21 % 03/08/20 13:25 Sodium 138 mmol/L (137-145) 03/25/20 04:28 Potassium 4.2 mmol/L (3.6-5.0) 03/25/20 04:28 Chloride 99.3 mmol/L (98-107) 03/25/20 04:28 Carbon Dioxide 28 mmol/L (22-30) 03/25/20 04:28 Anion Gap 15 mmol/L 03/25/20 04:28 BUN 23 mg/dL (7-17) H 03/25/20 04:28 Creatinine 0.5 mg/dL (0.7-1.2) L 03/25/20 04:28 Estimated GFR > 60 ml/min 03/25/20 04:28 BUN/Creatinine Ratio 46 % 03/25/20 04:28 Glucose 121 mg/dL (65-100) H 03/25/20 04:28 POC Glucose 130 (70-105) H 03/25/20 06:45 Lactic Acid 1.80 mmol/L (0.7-2.0) 11/25/19 05:05 Calcium 10.3 mg/dL (8.4-10.2) H 03/25/20 04:28 Ionized Calcium 4.5 mg/dL (4.8-5.6) L 11/23/19 06:32 Phosphorus 4.20 mg/dL (2.5-4.5) D 11/28/19 08:59 Magnesium 1.90 mg/dL (1.7-2.3) 02/28/20 03:40 Total Bilirubin 0.40 mg/dL (0.1-1.2) 12/13/19 07:48 AST 27 units/L (5-40) 12/13/19 07:48 ALT 26 units/L (7-56) 12/13/19 07:48 Alkaline Phosphatase 316 units/L (35-129) H 12/13/19 07:48 Ammonia 42.0 umol/L (25-60) 11/29/19 13:41 Total Creatine Kinase 139 units/L (30-135) H 11/22/19 23:27 CK-MB (CK-2) 8.3 ng/mL (0.0-4.0) H 11/22/19 23:27 CK-MB (CK-2) Rel Index 5.9 (0-4) H 11/22/19 23:27 Troponin T < 0.010 ng/mL (0.00-0.029) 11/22/19 23:27 Total Protein 6.8 g/dL (6.3-8.2) 12/13/19 07:48 Albumin 2.4 g/dL (3.9-5) L 12/13/19 07:48 Albumin/Globulin Ratio 0.5 % 12/13/19 07:48 Lipase 18 units/L (13-60) 11/23/19 00:34 Procalcitonin 1.09 ng/mL (<0.15) 11/23/19 04:53 TSH 1.010 mlU/mL (0.270-4.200) 02/12/20 07:36 Free T4 1.08 ng/dL (0.76-1.46) 02/12/20 07:36 Urine Color Yellow (Yellow) 12/16/19 Unknown Urine Turbidity Slightly-cloudy (Clear) 12/16/19 Unknown Urine pH 5.0 (5.0-7.0) 12/16/19 Unknown Ur Specific Sapphire 1.018 (1.003-1.030) 12/16/19 Unknown Urine Protein 30 mg/dl mg/dL (Negative) 12/16/19 Unknown Urine Glucose (UA) Neg mg/dL (Negative) 12/16/19 Unknown Urine Ketones Neg mg/dL (Negative) 12/16/19 Unknown Urine Blood Sm (Negative) 12/16/19 Unknown Urine Nitrite Neg (Negative) 12/16/19 Unknown Urine Bilirubin Neg (Negative) 12/16/19 Unknown Urine Urobilinogen < 2.0 mg/dL (<2.0) 12/16/19 Unknown Ur Leukocyte Esterase Neg (Negative) 12/16/19 Unknown Urine WBC (Auto) 6.0 /HPF (0.0-6.0) 12/16/19 Unknown Urine RBC (Auto) 9.0 /HPF (0.0-6.0) 12/16/19 Unknown U Epithel Cells (Auto) < 1.0 /HPF (0-13.0) 12/16/19 Unknown Urine Bacteria (Auto) 2+ /HPF (Negative) 11/22/19 23:17 Hyaline Casts 3 /LPF 12/16/19 Unknown Granular Casts 3 /LPF 12/16/19 Unknown Urine Mucus Few /HPF 12/16/19 Unknown Vancomycin Trough 33.8 ug/mL (5.0-20.0) H 12/21/19 08:56 Random Vancomycin 16.2 ug/mL (0-40.0) 12/24/19 04:31 Salicylates < 0.3 mg/dL (2.8-20.0) L 11/22/19 23:27 Urine Opiates Screen Presumptive negative 11/22/19 23:17 Urine Methadone Screen Presumptive negative 11/22/19 23:17 Acetaminophen < 5.0 ug/mL (10.0-30.0) L 11/22/19 23:27 Ur Barbiturates Screen Presumptive negative 11/22/19 23:17 Ur Phencyclidine Scrn Presumptive negative 11/22/19 23:17 Ur Amphetamines Screen Presumptive negative 11/22/19 23:17 U Benzodiazepines Scrn Presumptive negative 11/22/19 23:17 Urine Cocaine Screen Presumptive negative 11/22/19 23:17 U Marijuana (THC) Screen Presumptive negative 11/22/19 23:17 Drugs of Abuse Note Disclamer 11/22/19 23:17 Plasma/Serum Alcohol 0.08 % (0-0.07) H 11/22/19 23:27 Coronavirus (PCR) Negative (Negative) 02/05/20 07:50 Hepatitis A IgM Ab Non-reactive (NonReactive) 11/23/19 01:19 Hep Bs Antigen Non-reactive (Negative) 11/23/19 01:19 Hep B Core IgM Ab Non-reactive (NonReactive) 11/23/19 01:19 Hepatitis C Antibody Non-reactive (NonReactive) 11/23/19 01:19 Blood Type O POSITIVE 12/21/19 14:54 Antibody Screen Negative 12/21/19 14:54 Crossmatch See Detail 12/21/19 14:54 - Diagnostic Impressions Diagnostic Impressions: Echocardiogram 11/23/19 03:58 Transthoracic Echocardiogram Indication: Cardiac arrest BP: 131/89 HR: 115 Conclusions *The study quality is technically difficult. *Global left ventricular wall motion and contractility are within normal limits. *The estimated ejection fraction is 55-60%. *Abnormal left ventricular diastolic filling is observed, consistent with impaired relaxation. *There is no pericardial effusion. Findings Procedure Info: The study quality is technically difficult. The study was technically limited due to the patient's inability to lay in the left lateral decubitus position. Left Ventricle: The left ventricular chamber size is normal. There is no left ventricular hypertrophy. Global left ventricular wall motion and contractility are within normal limits. Global left ventricular systolic function is normal. The estimated ejection fraction is 55-60%. Abnormal left ventricular diastolic filling is observed, consistent with impaired relaxation. Left Atrium: The left atrial chamber size is normal. Aortic Valve: The aortic valve leaflets are mildly thickened. Mitral Valve: The mitral valve leaflets are mildly thickened. There is no evidence of mitral regurgitation. Tricuspid Valve: The tricuspid valve leaflets are normal. There is trace tricuspid regurgitation. The right ventricular systolic pressure is calculated at 33 mmHg. Pulmonic Valve: The pulmonic valve appears normal. Pericardium: The pericardium appears normal. There is no pericardial effusion. Aorta: The aorta appears normal. Venous: The inferior vena cava appears normal in size. Measurements Chambers 2D Name Value Normal Range IVSd (2D) 0.94 cm (0.6 - 1.1) LVPWd (2D) 0.81 cm (0.6 - 1.1) LVIDd (2D) 3.6 cm (3.7 - 5.6) LVIDs (2D) 2.27 cm (2 - 3.8) LV FS (2D) 36.93 % - EF Teichholz (2D) 67.76 % - Ao root diameter (2D) 3.03 cm (2 - 3.7) Volumes/Mass Name Value Normal Range LA ESV SP 4CH (A/L) 16.89 ml - LA ESV SP 4CH (MOD) 15.52 ml - Diastolic/Systolic Function Name Value Normal Range MV E-wave Vmax 0.55 m/sec - MV deceleration time 200.89 msec - MV A-wave Vmax 0.68 m/sec - MV E:A ratio 0.82 ratio - Aortic Valve Name Value Normal Range AV Vmax 1.1 m/sec - AV VTI 15.9 cm - AV peak gradient 4.86 mmHg - AV mean gradient 2.59 mmHg - LVOT diameter 2 cm - LVOT Vmax 1.03 m/sec - LVOT VTI 15.87 cm - LVOT peak gradient 4.24 mmHg - LVOT mean gradient 2.41 mmHg - SV LVOT 49.77 ml - JOSÉ MIGUEL (continuity Vmax) 2.93 cm2 - JOSÉ MIGUEL (continuity VTI) 3.13 cm2 - Tricuspid Valve Name Value Normal Range TR Vmax 2.74 m/sec - TR peak gradient 303 mmHg - RAP 3 mmHg - RVSP 33 mmHg - IVC diameter 1.77 cm (1.2 - 2.3) Pulmonic Valve/Qp:Qs Name Value Normal Range PV Vmax 0.77 m/sec - PV peak gradient 2.4 mmHg - PV acceleration time 114.18 msec - Echocardiogram Limited Views 12/17/19 14:53 Transthoracic Echocardiogram Indication: R/O Vegetations BP: 144/83 HR: 133 Conclusions *Global left ventricular systolic function is mildly decreased. *The estimated ejection fraction is 45-50%. *A trivial pericardial effusion is visualized. Findings Left Ventricle: The left ventricular chamber size is normal. Global left ventricular systolic function is mildly decreased. The estimated ejection fraction is 45-50%. Left Atrium: The left atrial chamber size is normal. Right Ventricle: The right ventricular cavity size is normal. Right Atrium: The right atrial cavity size is normal. Aortic Valve: The aortic valve is not well visualized. There is no evidence of aortic regurgitation. Mitral Valve: The mitral valve leaflets are mildly thickened. There is trace of mitral regurgitation. Tricuspid Valve: The tricuspid valve leaflets are mildly thickened. There is trace tricuspid regurgitation. The right ventricular systolic pressure is calculated at 29 mmHg. Pulmonic Valve: The pulmonic valve is not well visualized. There is no evidence of pulmonic regurgitation. Pericardium: A trivial pericardial effusion is visualized. Aorta: There is no dilatation of the ascending aorta. There is no dilatation of the aortic root. Venous: The inferior vena cava appears normal in size. There is a greater than 50% respiratory change in the inferior vena cava dimension. Measurements Chambers 2D Name Value Normal Range IVSd (2D) 0.83 cm (0.6 - 1.1) LVPWd (2D) 0.98 cm (0.6 - 1.1) LVIDd (2D) 3.71 cm (3.7 - 5.6) LVIDs (2D) 2.93 cm (2 - 3.8) LV FS (2D) 21.12 % - EF Teichholz (2D) 43.71 % - Ao root diameter (2D) 3.02 cm (2 - 3.7) Volumes/Mass Name Value Normal Range LA ESV SP 4CH (A/L) 36.8 ml - LA ESV SP 2CH (A/L) 45.89 ml - LA ESV BP (A/L) 42.35 ml - LA ESV BP (A/L) index 26.63 ml/m2 - LA ESV SP 4CH (MOD) 34.42 ml - LA ESV SP 2CH (MOD) 44.21 ml - LA ESV BP (MOD) 39.82 ml - LA ESV BP (MOD) index 25.05 ml/m2 - Aortic Valve Name Value Normal Range LVOT diameter 1.63 cm - Tricuspid Valve Name Value Normal Range TR Vmax 2.56 m/sec - TR peak gradient 26 mmHg - RAP 3 mmHg - RVSP 29 mmHg - IVC diameter 1.83 cm (1.2 - 2.3) Dela Cruz/IV: Voiding Method Incontinent IV Catheter Type [Forearm] Peripheral IV IV Catheter Type [Left Forearm INT / Saline Lock ] IV Catheter Type [Right INT / Saline Lock Antecubital] IV Catheter Type [Right Hand] INT / Saline Lock IV Catheter Type [Right Wrist] Peripheral IV IV Catheter Type [Left Wrist] Peripheral IV IV Catheter Type [Left Peripheral IV Antecubital] IV Catheter Type [Right INT / Saline Lock Forearm] IV Catheter Type [Left Hand] INT / Saline Lock Active Medications - Current Medications Current Medications: Generic Name Dose Route Start Last Admin Trade Name Freq PRN Reason Stop Dose Admin Acetaminophen 650 mg 12/06/19 10:25 03/25/20 00:17 Tylenol FEEDTUBE 650 mg Q6H PRN Administration TEMP >/=100.3 Acetylcysteine 200 mg 02/16/20 20:00 03/24/20 20:39 Mucomyst Inhalation INHALATION 200 mg Q12HRT LUCHO Administration Albuterol/Ipratropium 1 ampul 03/18/20 20:00 03/25/20 01:38 Duoneb *Not For Prn Use* IH 1 ampul Q6HRT LUCHO Administration Lipase/Protease/Amylase 1 each 11/23/19 11:50 Pancreazalayna Crenshaw 10,500 Unit FEEDTUBE PRN PRN Use w/ sod bicarb for FT Bisacodyl 10 mg 02/06/20 13:57 Dulcolax MT QDAY PRN Constipation unrelieved by MOM Enoxaparin Sodium 40 mg 03/07/20 22:00 03/24/20 21:46 Enoxaparin SUB-Q 40 mg QDAY@2200 LUCHO Administration Glycopyrrolate 2 mg 12/31/19 20:00 03/24/20 21:46 Robinul PO 2 mg TID LUCHO Administration Haloperidol Lactate 5 mg 03/05/20 09:22 03/25/20 00:17 Haldol IM 5 mg Q6H PRN Administration Agitation Hydralazine HCl 10 mg 11/24/19 00:45 03/03/20 05:57 Apresoline IV 10 mg Q6H PRN Administration SBP > 160 Hydroxyzine Pamoate 25 mg 12/06/19 10:00 03/24/20 21:46 Vistaril PO 25 mg BID LUCHO Administration Lansoprazole 30 mg 11/27/19 10:00 03/24/20 09:01 Prevacid Solutab FEEDTUBE 30 mg QDAY LUCHO Administration Levetiracetam 500 mg 11/29/19 10:00 03/24/20 21:46 Keppra PO 500 mg BID LUCHO Administration Metoprolol Tartrate 12.5 mg 02/23/20 22:00 03/24/20 21:46 Metoprolol PO 12.5 mg BID LUCHO Administration Mirtazapine 30 mg 12/06/19 10:00 03/24/20 09:00 Remeron PO 30 mg DAILY LUCHO Administration Nicotine 21 mg 02/16/20 13:00 03/24/20 09:01 Habitrol TD 21 mg QDAY LUCHO Administration Ondansetron HCl 4 mg 12/10/19 07:53 02/25/20 02:51 Zofran IV 4 mg Q4H PRN Administration Nausea And Vomiting Polyethylene Glycol 17 gm 02/06/20 13:57 Miralax 3350 PO QDAY PRN Constipation Quetiapine Fumarate 100 mg 03/06/20 10:00 03/24/20 21:46 Seroquel FEEDTUBE 100 mg BID LUCHO Administration Scopolamine 1 each 02/08/20 15:00 03/24/20 09:00 Transderm-Scop TD 1 each Q3D LUCHO Administration Sertraline HCl 25 mg 01/01/20 10:00 03/24/20 09:03 Zoloft PO 25 mg QDAY LUCHO Administration Simple Syrup 15 ml 11/23/19 11:50 Simple Syrup FEEDTUBE PRN PRN Hypoglycemia BG<70 Simple Syrup 30 ml 11/23/19 11:50 Simple Syrup FEEDTUBE PRN PRN Hypoglycemia Sodium Bicarbonate 325 mg 11/23/19 11:50 Sodium Bicarbonate FEEDTUBE PRN PRN For Clogged Feeding Tube Nutrition/Malnutrition Assess - Dietary Evaluation Nutrition/Malnutrition Findings: Nutrition Notes Start: 11/23/19 11:29 Freq: Status: Active Protocol: Document 03/20/20 12:53 LM (Rec: 03/20/20 12:55 LM [id number]) Nutrition Notes Initial or Follow up Reassessment Current Diagnosis Hypertension Other Pertinent Diagnosis Cardaic arrest, ETOH dependence, UTI Current Diet Jevity 1.2 at 60ml/hr Labs/Tests Reviewed Pertinent Medications Reviewed Height 5 ft 6 in Weight 45.6 kg [place] Body Weight (kg) 59.09 BMI 16.2 Subjective/Other Information TF running at goal. Percent of energy/protein needs met: 100%/100% Burn Absent Trauma Absent GI Symptoms None Current % PO Negligible Interpretation of Weight Loss (severe) >2% in 1 week Muscle Mass Mild Depletion (non-severe) #2 Nutrition Diagnosis Malnutrition Diagnosis Progress(for reassessment Continues documentation) #1 Nutrition Diagnosis Inadequate oral intake Diagnosis Progress(for reassessment Continues documentation) Is patient on ventilator? No Is Patient Ambulatory and/or Out of Bed No REE-([facility]-confined to bed) 1286.028 Kcal/Kg value to use for calculation 38 Approximate Energy Requirements Using 1733 kcal/Kg Calculation Used for Recommendations Kcal/kg Additional Notes Protein: 60-75g (1.2-1.5g/kg) Fluid: 1 ml/kcal Nutrition Intervention Change Diet Order: Continue TF Nutrition Support: Jevity 1.2 at 60ml/hr Flush 100ml q4h Kcal 1,728 Protein (gm) 80 Fluid (mL) 1,162 Goal #1 TF tolerance Goal #2 Meet at least 80% of energy and protein needs via TF Goal #3 Wt gain/maintenacne Anticipated Discharge Needs: TF Follow-Up By: 03/27/20 Additional Comments F/u for TF tolerance
[2020-03-25] MEDS: SERTRALINE 50 MG TAB PO SCH (10:46)
[2020-03-25] MEDS: METOPROLOL TARTRATE 25 MG TAB PO SCH (10:46)
[2020-03-25] MEDS: hydrOXYzine PAMOATE 25 MG CAP PO SCH ×2 (10:47→22:29)
[2020-03-25] MEDS: MIRTAZAPINE 30 MG TAB PO SCH (10:47)
[2020-03-25] MEDS: levETIRAcetam 500 MG/5 ML ORAL LIQD PO SCH ×2 (10:47→22:29)
[2020-03-25] MEDS: QUEtiapine 100 MG TAB FEEDTUBE SCH ×2 (10:47→22:29)
[2020-03-25] MEDS: NICOTINE 21 MG/24 HR PATCH TD SCH (10:47)
[2020-03-25] MEDS: LANSOPRAZOLE 30 MG SOLUTAB FEEDTUBE SCH (10:47)
[2020-03-25] MEDS: ACETYLCYSTEINE 20% 200 MG/1 ML *FOR INHALATION USE INHALATION SCH ×2 (11:27→19:14)
[2020-03-25] MEDS ORDERED: ALBUTEROL 2.5 MG/3 ML NEBU IH PRN (19:25)
[2020-03-25] MEDS: ENOXAPARIN 40 MG/0.4 ML INJ SUB-Q SCH (22:29)
[2020-03-26] MEDS: IPRATROPIUM/ALBUTEROL SULFATE 3 ML AMPUL.NEB IH SCH ×3 (08:58→22:47)
[2020-03-26] MEDS: ACETYLCYSTEINE 20% 200 MG/1 ML *FOR INHALATION USE INHALATION SCH ×2 (08:58→22:47)
[2020-03-26] MEDS: MIRTAZAPINE 30 MG TAB PO SCH (10:15)
[2020-03-26] MEDS: levETIRAcetam 500 MG/5 ML ORAL LIQD PO SCH ×2 (11:03→22:33)
[2020-03-26] MEDS: GLYCOPYRROLATE 1 MG TAB PO SCH ×3 (11:03→22:33)
[2020-03-26] MEDS: SERTRALINE 50 MG TAB PO SCH (11:03)
[2020-03-26] MEDS: NICOTINE 21 MG/24 HR PATCH TD SCH (11:03)
[2020-03-26] MEDS: LANSOPRAZOLE 30 MG SOLUTAB FEEDTUBE SCH (11:03)
[2020-03-26] MEDS: QUEtiapine 100 MG TAB FEEDTUBE SCH ×2 (11:03→22:33)
[2020-03-26] MEDS: hydrOXYzine PAMOATE 25 MG CAP PO SCH ×2 (11:04→22:33)
--- NOTE | 2020-03-26 11:39 | Progress Note ---
Assessment and Plan Assessment and plan: 54-year-old female with a past medical history of Hypertension, Depression, Tobacco use Disorder, Alcohol use Disorder as confirmed by Daughter and pt's mother presents to the hospital status post cardiac arrest at home. EMS found pt in [facility]. They were unable to intubate patient with a ET tube because she was clenching down therefore Joe airway placed. Per the ED physician who evaluated pt, Patient presented with a pulse, intermittent respirations, and bagging support via Joe airway with O2 sat of 100%. Accu-Chek of 71 obtained by EMS. She was intubated in the ER and called for admission. Following admission patient was diagnosed with anoxic brain injury, sepsis with MRSA bacteremia and MSSA pneumonia, alcoholic liver disease. Family member initially wished for full code then changed to DNR, patient treated with IV antibiotics for sepsis, status post trach and PEG on 12/13/19. Weaned off from the vent and put on T- piece. Patient is uninsured, waiting for placement, guarded prognosis. Anoxic brain injury: suspected CT head: No acute abnormality. EEG ordered showed Generalized slowing. No seizures or epileptiform activity. -Patient now opening her eyes, can speak and able to follow command -As needed haldol for agitation Acute Respiratory failure -due to MSSA PNA -s/p intubation, s/p trach and PEG on 12/12 with mechanical ventilation, now on T-piece - CTA was done and negative for PE, - Echo quality is poor, showed diastolic dysfunction - continue weaning as tolerated -Continue appropriate and adequate tracheostomy care Tracheostomy site ulceration -Continue appropriate wound management try to keep area dry. Anemia, microcytic - Status post 3 units PRBC transfusion, H&H low stable Acute metabolic encephalopathy/toxic encephalopathy due to the above - cont supportive care Hyperammonemia - likely from liver disease related to EtOH abuse - Patient had elevated ammonia level and treated with lactulose Metabolic Acidosis -Alcohol ketoacidosis vs hypoprofusion -Continue to monitor ELevated LFTs, stable now - due to ischemic hepatitis. Leucocytosis with sepsis - Source MRSA bacteremia and MSSA pneumonia. UA showed pyuria. RUQ US showed no ascites. - Repeat TTE negative for vegetation. Completed 7 days of Ceftriaxone on 11/29/2019. -Treated with Abx vancomycin 1 gm IV q 12 hour total 2 week till 12/30/2019 Severe protein calorie malnutrition Dietitian following MSSA pneumonia: Status post vancomycin till 12/30/2019 Alcohol use Disorder - given ongoing Alcohol use almost daily, s/p IV Thiamine - monitor Severe hypokalemia -Repleted Seizure disorder: treated with Keppra H. Influenzae, tracheobronchitis, treated with abx Moderate to severe fecal impaction - will add stool softner DNR CODE STATUS Disposition: prognosis guarded. Family okay for DNR, PT recommended subacute rehab, discharge pending on placement. Negative for COVID 19 03/07: Returning to service no acute changes are noted. Continue current management while awaiting placement. Intermittent labs. Base of neck also around tracheostomy tube preventing downgrading. Continue appropriate wound care. 03/08: Plan of care unchanged continues on aerosol trach collar 28% of oxygen. Continue wound care management placement still pending status decision. 03/09: Continue current treatment plan. Continue aspiration precaution 03/10: Continue current management, Restraints as patient still pulling, awaiting placement 03/11: Continue supportive care, intermittent suctioning and pulmonary toilet. awaiting placement. 03/12: Continue supportive care, Give a bolus of fluids due to Hypercalcemia, Monitor Hyperkalemia with labs in am, No arrhythmia. Patient vomiting, concern for aspiration, Chest xray ordered and no active disease noted. Keep HOB >45% 03/13: No evidence of aspiration on xray. Continue supportive care. 03/14: Continue supportive care. Capping trials to start. Discussed with patients nursing and case management to continue daily PT by the Rehab team. 03/15: Discussed again with staff to start capping trial. 03/16: Do not see any indication the capping trial has started will discuss with respiratory therapist. Continue restraints. Still awaiting family decision patient has had some remarkable improvement considering the fact that she was able to stay around night without restraints. We will continue daily trial of this method. Discussed plan with nursing staff 03/17: Continue current care. Currently continue restraints. Continue current management. Continue physical therapy daily. 03/18: Capping trial successful and will possibly get decannulated today. Continue placement. 03/19: Now decannulated and doing well. Begin discharge planning. 03/20: Stable, no new complaints. 03/21: No new complaints. Continue supportive 03/22: No new complaints, still with some confusion, and agitation requiring restraints. Will require daily PT/OT and continue to work with Case management for placement 03/23: continue current management, daily PT/OT. stoma care. No new seizure, slow but gradual improvement noted daily 03/24: Mr. Amaya is a 55-year-old female who presented to the hospital was admitted post cardiac arrest at home she has remarkably done well been extubated and decannulated with stoma healing. She still does experience some intermittent delirious process and as a result is on restraints. I have discussed with nursing staff to see if they can provide a sitter for her and continue daily PT as this will aid in reintroducing her to the community. Case management is working on placement for her. Will check labs in a.m. 03/25/2020. Patient is s/p cardiac arrest, extubated and decannulated with stoma healing. Await placement per case management. 03/26/2020. Awaiting placement. History Interval history: No new issues overnight. Hospitalist Physical - Constitutional Vitals: Temp Pulse Resp BP Pulse Ox 98.3 F 102 H 16 144/94 98 03/26/20 03:33 03/26/20 08:58 03/26/20 08:58 03/26/20 03:32 03/26/20 09:02 General appearance: Present: mild distress, cachectic, disheveled, other (Noncommunicative) - EENT Eyes: Present: PERRL, EOM intact ENT: hearing intact, clear oral mucosa, dentition normal - Neck Neck: Present: supple, normal ROM - Respiratory Respiratory effort: normal Respiratory: bilateral: CTA - Cardiovascular Rhythm: regular Heart Sounds: Present: S1 & S2. Absent: gallop, rub - Extremities Extremities: no ischemia, No edema, Full ROM - Abdominal General gastrointestinal: soft, non-tender, non-distended, normal bowel sounds - Integumentary Integumentary: Present: clear, warm, dry - Neurologic Neurologic: CNII-XII intact, moves all extremities HEART Score - HEART Score Troponin: Troponin T < 0.010 ng/mL (0.00-0.029) 11/22/19 23:27 Results - Labs CBC & Chem 7: 03/25/20 04:28 03/25/20 04:28 Labs: Laboratory Last Values WBC 9.0 K/mm3 (4.5-11.0) 03/25/20 04:28 RBC 3.65 M/mm3 (3.65-5.03) 03/25/20 04:28 Hgb 10.8 gm/dl (10.1-14.3) 03/25/20 04:28 Hct 32.5 % (30.3-42.9) 03/25/20 04:28 MCV 89 fl (79-97) 03/25/20 04:28 MCH 30 pg (28-32) 03/25/20 04:28 MCHC 33 % (30-34) 03/25/20 04:28 RDW 14.1 % (13.2-15.2) 03/25/20 04:28 Plt Count 423 K/mm3 (140-440) 03/25/20 04:28 Lymph % (Auto) 27.8 % (13.4-35.0) 03/06/20 03:37 Schley % (Auto) 9.1 % (0.0-7.3) H 03/06/20 03:37 Eos % (Auto) 2.8 % (0.0-4.3) 03/06/20 03:37 Baso % (Auto) 0.7 % (0.0-1.8) 03/06/20 03:37 Lymph # 2.2 K/mm3 (1.2-5.4) 03/06/20 03:37 Schley # 0.7 K/mm3 (0.0-0.8) 03/06/20 03:37 Eos # 0.2 K/mm3 (0.0-0.4) 03/06/20 03:37 Baso # 0.1 K/mm3 (0.0-0.1) 03/06/20 03:37 Add Manual Diff Complete 12/25/19 03:47 Total Counted 200 12/25/19 03:47 Seg Neutrophils % 59.6 % (40.0-70.0) 03/06/20 03:37 Seg Neuts % (Manual) 97.5 % (40.0-70.0) H 12/25/19 03:47 Band Neutrophils % 0 % 12/25/19 03:47 Lymphocytes % (Manual) 1.0 % (13.4-35.0) L 12/25/19 03:47 Reactive Lymphs % (Man) 0 % 12/25/19 03:47 Monocytes % (Manual) 1.5 % (0.0-7.3) 12/25/19 03:47 Eosinophils % (Manual) 0 % (0.0-4.3) 12/25/19 03:47 Basophils % (Manual) 0 % (0.0-1.8) 12/25/19 03:47 Metamyelocytes % 0 % 12/25/19 03:47 Myelocytes % 0 % 12/25/19 03:47 Promyelocytes % 0 % 12/25/19 03:47 Blast Cells % 0 % 12/25/19 03:47 Nucleated RBC % Not Reportable 12/25/19 03:47 Seg Neutrophils # 4.8 K/mm3 (1.8-7.7) 03/06/20 03:37 Seg Neutrophils # Man 35.3 K/mm3 (1.8-7.7) H 12/25/19 03:47 Band Neutrophils # 0.0 K/mm3 12/25/19 03:47 Lymphocytes # (Manual) 0.4 K/mm3 (1.2-5.4) L 12/25/19 03:47 Abs React Lymphs (Man) 0.0 K/mm3 12/25/19 03:47 Monocytes # (Manual) 0.5 K/mm3 (0.0-0.8) 12/25/19 03:47 Eosinophils # (Manual) 0.0 K/mm3 (0.0-0.4) 12/25/19 03:47 Basophils # (Manual) 0.0 K/mm3 (0.0-0.1) 12/25/19 03:47 Metamyelocytes # 0.0 K/mm3 12/25/19 03:47 Myelocytes # 0.0 K/mm3 12/25/19 03:47 Promyelocytes # 0.0 K/mm3 12/25/19 03:47 Blast Cells # 0.0 K/mm3 12/25/19 03:47 Pathologist Review 12/13/19 07:48 WBC Morphology Not Reportable 12/25/19 03:47 Hypersegmented Neuts Not Reportable 12/25/19 03:47 Hyposegmented Neuts Not Reportable 12/25/19 03:47 Hypogranular Neuts Not Reportable 12/25/19 03:47 Smudge Cells Not Reportable 12/25/19 03:47 Toxic Granulation Not Reportable 12/25/19 03:47 Toxic Vacuolation Not Reportable 12/25/19 03:47 Dohle Bodies Not Reportable 12/25/19 03:47 Pelger-Huet Anomaly Not Reportable 12/25/19 03:47 Dominique Rods Not Reportable 12/25/19 03:47 Platelet Estimate Consistent w auto 12/25/19 03:47 Clumped Platelets Not Reportable 12/25/19 03:47 Plt Clumps, EDTA Not Reportable 12/25/19 03:47 Large Platelets Not Reportable 12/25/19 03:47 Giant Platelets Not Reportable 12/25/19 03:47 Platelet Satelliting Not Reportable 12/25/19 03:47 Plt Morphology Comment Not Reportable 12/25/19 03:47 RBC Morphology Not Reportable 12/25/19 03:47 Dimorphic RBCs Not Reportable 12/25/19 03:47 Polychromasia Not Reportable 12/25/19 03:47 Hypochromasia Not Reportable 12/25/19 03:47 Poikilocytosis Not Reportable 12/25/19 03:47 Anisocytosis 1+ 12/25/19 03:47 Microcytosis Not Reportable 12/25/19 03:47 Macrocytosis Not Reportable 12/25/19 03:47 Spherocytes Not Reportable 12/25/19 03:47 Pappenheimer Bodies Not Reportable 12/25/19 03:47 Sickle Cells Not Reportable 12/25/19 03:47 Target Cells Not Reportable 12/25/19 03:47 Tear Drop Cells Not Reportable 12/25/19 03:47 Ovalocytes Not Reportable 12/25/19 03:47 Helmet Cells Not Reportable 12/25/19 03:47 [place] Bodies Not Reportable 12/25/19 03:47 [place] Rings Not Reportable 12/25/19 03:47 Jamshid Cells Not Reportable 12/25/19 03:47 Bite Cells Not Reportable 12/25/19 03:47 Crenated Cell Not Reportable 12/25/19 03:47 Elliptocytes Not Reportable 12/25/19 03:47 Acanthocytes (Spur) Not Reportable 12/25/19 03:47 Rouleaux Not Reportable 12/25/19 03:47 Hemoglobin C Crystals Not Reportable 12/25/19 03:47 Schistocytes Not Reportable 12/25/19 03:47 Malaria parasites Not Reportable 12/25/19 03:47 Gregg Bodies Not Reportable 12/25/19 03:47 Hem Pathologist Commnt No 12/25/19 03:47 PT 17.0 Sec. (12.2-14.9) H 11/23/19 03:47 INR 1.36 (0.87-1.13) H 11/23/19 03:47 APTT 128.2 Sec. (24.2-36.6) H* 11/23/19 03:47 Heparin Anti-Xa Level 0.31 U.I./ml (0.3-0.7) 11/23/19 09:03 ABG pH 7.433 pH Units (7.350-7.450) 03/08/20 13:25 ABG pCO2 40.2 mm Hg 03/08/20 13:25 ABG pO2 71.1 mm Hg (80.0-90.0) L 03/08/20 13:25 ABG HCO3 26.2 mmol/L (20.0-26.0) H 03/08/20 13:25 ABG O2 Saturation 97.0 % (95.0-99.0) 03/08/20 13:25 ABG O2 Content 11.0 (0.0-44) 03/08/20 13:25 ABG Base Excess 1.8 mmol/L (-2.0-3.0) 03/08/20 13:25 ABG Hemoglobin 8.2 gm/dl (12.0-16.0) L 03/08/20 13:25 ABG Carboxyhemoglobin 1.7 % (0.0-5.0) 03/08/20 13:25 ABG Methemoglobin 0.5 % (0.0-1.5) 03/08/20 13:25 Oxyhemoglobin 94.8 % (95.0-99.0) L 03/08/20 13:25 FiO2 21 % 03/08/20 13:25 Sodium 138 mmol/L (137-145) 03/25/20 04:28 Potassium 4.2 mmol/L (3.6-5.0) 03/25/20 04:28 Chloride 99.3 mmol/L (98-107) 03/25/20 04:28 Carbon Dioxide 28 mmol/L (22-30) 03/25/20 04:28 Anion Gap 15 mmol/L 03/25/20 04:28 BUN 23 mg/dL (7-17) H 03/25/20 04:28 Creatinine 0.5 mg/dL (0.7-1.2) L 03/25/20 04:28 Estimated GFR > 60 ml/min 03/25/20 04:28 BUN/Creatinine Ratio 46 % 03/25/20 04:28 Glucose 121 mg/dL (65-100) H 03/25/20 04:28 POC Glucose 118 (70-105) H 03/25/20 15:57 Lactic Acid 1.80 mmol/L (0.7-2.0) 11/25/19 05:05 Calcium 10.3 mg/dL (8.4-10.2) H 03/25/20 04:28 Ionized Calcium 4.5 mg/dL (4.8-5.6) L 11/23/19 06:32 Phosphorus 4.20 mg/dL (2.5-4.5) D 11/28/19 08:59 Magnesium 1.90 mg/dL (1.7-2.3) 02/28/20 03:40 Total Bilirubin 0.40 mg/dL (0.1-1.2) 12/13/19 07:48 AST 27 units/L (5-40) 12/13/19 07:48 ALT 26 units/L (7-56) 12/13/19 07:48 Alkaline Phosphatase 316 units/L (35-129) H 12/13/19 07:48 Ammonia 42.0 umol/L (25-60) 11/29/19 13:41 Total Creatine Kinase 139 units/L (30-135) H 11/22/19 23:27 CK-MB (CK-2) 8.3 ng/mL (0.0-4.0) H 11/22/19 23:27 CK-MB (CK-2) Rel Index 5.9 (0-4) H 11/22/19 23:27 Troponin T < 0.010 ng/mL (0.00-0.029) 11/22/19 23:27 Total Protein 6.8 g/dL (6.3-8.2) 12/13/19 07:48 Albumin 2.4 g/dL (3.9-5) L 12/13/19 07:48 Albumin/Globulin Ratio 0.5 % 12/13/19 07:48 Lipase 18 units/L (13-60) 11/23/19 00:34 Procalcitonin 1.09 ng/mL (<0.15) 11/23/19 04:53 TSH 1.010 mlU/mL (0.270-4.200) 02/12/20 07:36 Free T4 1.08 ng/dL (0.76-1.46) 02/12/20 07:36 Urine Color Yellow (Yellow) 12/16/19 Unknown Urine Turbidity Slightly-cloudy (Clear) 12/16/19 Unknown Urine pH 5.0 (5.0-7.0) 12/16/19 Unknown Ur Specific [place] 1.018 (1.003-1.030) 12/16/19 Unknown Urine Protein 30 mg/dl mg/dL (Negative) 12/16/19 Unknown Urine Glucose (UA) Neg mg/dL (Negative) 12/16/19 Unknown Urine Ketones Neg mg/dL (Negative) 12/16/19 Unknown Urine Blood Sm (Negative) 12/16/19 Unknown Urine Nitrite Neg (Negative) 12/16/19 Unknown Urine Bilirubin Neg (Negative) 12/16/19 Unknown Urine Urobilinogen < 2.0 mg/dL (<2.0) 12/16/19 Unknown Ur Leukocyte Esterase Neg (Negative) 12/16/19 Unknown Urine WBC (Auto) 6.0 /HPF (0.0-6.0) 12/16/19 Unknown Urine RBC (Auto) 9.0 /HPF (0.0-6.0) 12/16/19 Unknown U Epithel Cells (Auto) < 1.0 /HPF (0-13.0) 12/16/19 Unknown Urine Bacteria (Auto) 2+ /HPF (Negative) 11/22/19 23:17 Hyaline Casts 3 /LPF 12/16/19 Unknown Granular Casts 3 /LPF 12/16/19 Unknown Urine Mucus Few /HPF 12/16/19 Unknown Vancomycin Trough 33.8 ug/mL (5.0-20.0) H 12/21/19 08:56 Random Vancomycin 16.2 ug/mL (0-40.0) 12/24/19 04:31 Salicylates < 0.3 mg/dL (2.8-20.0) L 11/22/19 23:27 Urine Opiates Screen Presumptive negative 11/22/19 23:17 Urine Methadone Screen Presumptive negative 11/22/19 23:17 Acetaminophen < 5.0 ug/mL (10.0-30.0) L 11/22/19 23:27 Ur Barbiturates Screen Presumptive negative 11/22/19 23:17 Ur Phencyclidine Scrn Presumptive negative 11/22/19 23:17 Ur Amphetamines Screen Presumptive negative 11/22/19 23:17 U Benzodiazepines Scrn Presumptive negative 11/22/19 23:17 Urine Cocaine Screen Presumptive negative 11/22/19 23:17 U Marijuana (THC) Screen Presumptive negative 11/22/19 23:17 Drugs of Abuse Note Disclamer 11/22/19 23:17 Plasma/Serum Alcohol 0.08 % (0-0.07) H 11/22/19 23:27 Coronavirus (PCR) Negative (Negative) 02/05/20 07:50 Hepatitis A IgM Ab Non-reactive (NonReactive) 11/23/19 01:19 Hep Bs Antigen Non-reactive (Negative) 11/23/19 01:19 Hep B Core IgM Ab Non-reactive (NonReactive) 11/23/19 01:19 Hepatitis C Antibody Non-reactive (NonReactive) 11/23/19 01:19 Blood Type O POSITIVE 12/21/19 14:54 Antibody Screen Negative 12/21/19 14:54 Crossmatch See Detail 12/21/19 14:54 - Diagnostic Impressions Diagnostic Impressions: Echocardiogram 11/23/19 03:58 Transthoracic Echocardiogram Indication: Cardiac arrest BP: 131/89 HR: 115 Conclusions *The study quality is technically difficult. *Global left ventricular wall motion and contractility are within normal limits. *The estimated ejection fraction is 55-60%. *Abnormal left ventricular diastolic filling is observed, consistent with impaired relaxation. *There is no pericardial effusion. Findings Procedure Info: The study quality is technically difficult. The study was technically limited due to the patient's inability to lay in the left lateral decubitus position. Left Ventricle: The left ventricular chamber size is normal. There is no left ventricular hypertrophy. Global left ventricular wall motion and contractility are within normal limits. Global left ventricular systolic function is normal. The estimated ejection fraction is 55-60%. Abnormal left ventricular diastolic filling is observed, consistent with impaired relaxation. Left Atrium: The left atrial chamber size is normal. Aortic Valve: The aortic valve leaflets are mildly thickened. Mitral Valve: The mitral valve leaflets are mildly thickened. There is no evidence of mitral regurgitation. Tricuspid Valve: The tricuspid valve leaflets are normal. There is trace tricuspid regurgitation. The right ventricular systolic pressure is calculated at 33 mmHg. Pulmonic Valve: The pulmonic valve appears normal. Pericardium: The pericardium appears normal. There is no pericardial effusion. Aorta: The aorta appears normal. Venous: The inferior vena cava appears normal in size. Measurements Chambers 2D Name Value Normal Range IVSd (2D) 0.94 cm (0.6 - 1.1) LVPWd (2D) 0.81 cm (0.6 - 1.1) LVIDd (2D) 3.6 cm (3.7 - 5.6) LVIDs (2D) 2.27 cm (2 - 3.8) LV FS (2D) 36.93 % - EF Teichholz (2D) 67.76 % - Ao root diameter (2D) 3.03 cm (2 - 3.7) Volumes/Mass Name Value Normal Range LA ESV SP 4CH (A/L) 16.89 ml - LA ESV SP 4CH (MOD) 15.52 ml - Diastolic/Systolic Function Name Value Normal Range MV E-wave Vmax 0.55 m/sec - MV deceleration time 200.89 msec - MV A-wave Vmax 0.68 m/sec - MV E:A ratio 0.82 ratio - Aortic Valve Name Value Normal Range AV Vmax 1.1 m/sec - AV VTI 15.9 cm - AV peak gradient 4.86 mmHg - AV mean gradient 2.59 mmHg - LVOT diameter 2 cm - LVOT Vmax 1.03 m/sec - LVOT VTI 15.87 cm - LVOT peak gradient 4.24 mmHg - LVOT mean gradient 2.41 mmHg - SV LVOT 49.77 ml - JOSÉ MIGUEL (continuity Vmax) 2.93 cm2 - JOSÉ MIGUEL (continuity VTI) 3.13 cm2 - Tricuspid Valve Name Value Normal Range TR Vmax 2.74 m/sec - TR peak gradient 303 mmHg - RAP 3 mmHg - RVSP 33 mmHg - IVC diameter 1.77 cm (1.2 - 2.3) Pulmonic Valve/Qp:Qs Name Value Normal Range PV Vmax 0.77 m/sec - PV peak gradient 2.4 mmHg - PV acceleration time 114.18 msec - Echocardiogram Limited Views 12/17/19 14:53 Transthoracic Echocardiogram Indication: R/O Vegetations BP: 144/83 HR: 133 Conclusions *Global left ventricular systolic function is mildly decreased. *The estimated ejection fraction is 45-50%. *A trivial pericardial effusion is visualized. Findings Left Ventricle: The left ventricular chamber size is normal. Global left ventricular systolic function is mildly decreased. The estimated ejection fraction is 45-50%. Left Atrium: The left atrial chamber size is normal. Right Ventricle: The right ventricular cavity size is normal. Right Atrium: The right atrial cavity size is normal. Aortic Valve: The aortic valve is not well visualized. There is no evidence of aortic regurgitation. Mitral Valve: The mitral valve leaflets are mildly thickened. There is trace of mitral regurgitation. Tricuspid Valve: The tricuspid valve leaflets are mildly thickened. There is trace tricuspid regurgitation. The right ventricular systolic pressure is calculated at 29 mmHg. Pulmonic Valve: The pulmonic valve is not well visualized. There is no evidence of pulmonic regurgitation. Pericardium: A trivial pericardial effusion is visualized. Aorta: There is no dilatation of the ascending aorta. There is no dilatation of the aortic root. Venous: The inferior vena cava appears normal in size. There is a greater than 50% respiratory change in the inferior vena cava dimension. Measurements Chambers 2D Name Value Normal Range IVSd (2D) 0.83 cm (0.6 - 1.1) LVPWd (2D) 0.98 cm (0.6 - 1.1) LVIDd (2D) 3.71 cm (3.7 - 5.6) LVIDs (2D) 2.93 cm (2 - 3.8) LV FS (2D) 21.12 % - EF Teichholz (2D) 43.71 % - Ao root diameter (2D) 3.02 cm (2 - 3.7) Volumes/Mass Name Value Normal Range LA ESV SP 4CH (A/L) 36.8 ml - LA ESV SP 2CH (A/L) 45.89 ml - LA ESV BP (A/L) 42.35 ml - LA ESV BP (A/L) index 26.63 ml/m2 - LA ESV SP 4CH (MOD) 34.42 ml - LA ESV SP 2CH (MOD) 44.21 ml - LA ESV BP (MOD) 39.82 ml - LA ESV BP (MOD) index 25.05 ml/m2 - Aortic Valve Name Value Normal Range LVOT diameter 1.63 cm - Tricuspid Valve Name Value Normal Range TR Vmax 2.56 m/sec - TR peak gradient 26 mmHg - RAP 3 mmHg - RVSP 29 mmHg - IVC diameter 1.83 cm (1.2 - 2.3) Del[place] Cruz/IV: Voiding Method Incontinent IV Catheter Type [Forearm] Peripheral IV IV Catheter Type [Left Forearm INT / Saline Lock ] IV Catheter Type [Right INT / Saline Lock Antecubital] IV Catheter Type [Right Hand] INT / Saline Lock IV Catheter Type [Right Wrist] Peripheral IV IV Catheter Type [Left Wrist] Peripheral IV IV Catheter Type [Left Peripheral IV Antecubital] IV Catheter Type [Right INT / Saline Lock Forearm] IV Catheter Type [Left Hand] INT / Saline Lock Active Medications - Current Medications Current Medications: Generic Name Dose Route Start Last Admin Trade Name Freq PRN Reason Stop Dose Admin Acetaminophen 650 mg 12/06/19 10:25 03/25/20 00:17 Tylenol FEEDTUBE 650 mg Q6H PRN Administration TEMP >/=100.3 Acetylcysteine 200 mg 02/16/20 20:00 03/26/20 08:58 Mucomyst Inhalation INHALATION 200 mg Q12HRT LUCHO Administration Albuterol 2.5 mg 03/25/20 19:25 Proventil IH Q4HRT PRN Shortness Of Breath Albuterol/Ipratropium 1 ampul 03/26/20 08:00 03/26/20 08:58 Duoneb *Not For Prn Use* IH 1 ampul TIDRT LUCHO Administration Lipase/Protease/Amylase 1 each 11/23/19 11:[address] 10,500 Unit FEEDTUBE PRN PRN Use w/ sod bicarb for FT Bisacodyl 10 mg 02/06/20 13:57 Dulcolax RI QDAY PRN Constipation unrelieved by MOM Enoxaparin Sodium 40 mg 03/07/20 22:00 03/25/20 22:29 Enoxaparin SUB-Q 40 mg QDAY@2200 LUCHO Administration Glycopyrrolate 2 mg 12/31/19 20:00 03/26/20 11:03 Robinul PO 2 mg TID LUCHO Administration Haloperidol Lactate 5 mg 03/05/20 09:22 03/25/20 00:17 Haldol IM 5 mg Q6H PRN Administration Agitation Hydralazine HCl 10 mg 11/24/19 00:45 03/03/20 05:57 Apresoline IV 10 mg Q6H PRN Administration SBP > 160 Hydroxyzine Pamoate 25 mg 12/06/19 10:00 03/26/20 11:04 Vistaril PO 25 mg BID LUCHO Administration Lansoprazole 30 mg 11/27/19 10:00 03/26/20 11:03 Prevacid Solutab FEEDTUBE 30 mg QDAY LUCHO Administration Levetiracetam 500 mg 11/29/19 10:00 03/26/20 11:03 Keppra PO 500 mg BID LUCHO Administration Mirtazapine 30 mg 12/06/19 10:00 03/25/20 10:47 Remeron PO 30 mg DAILY LUCHO Administration Nicotine 21 mg 02/16/20 13:00 03/26/20 11:03 Habitrol TD 21 mg QDAY LUCHO Administration Ondansetron HCl 4 mg 12/10/19 07:53 02/25/20 02:51 Zofran IV 4 mg Q4H PRN Administration Nausea And Vomiting Polyethylene Glycol 17 gm 02/06/20 13:57 Miralax 3350 PO QDAY PRN Constipation Quetiapine Fumarate 100 mg 03/06/20 10:00 03/26/20 11:03 Seroquel FEEDTUBE 100 mg BID LUCHO Administration Scopolamine 1 each 02/08/20 15:00 03/24/20 09:00 Transderm-Scop TD 1 each Q3D LUCHO Administration Sertraline HCl 25 mg 01/01/20 10:00 03/26/20 11:03 Zoloft PO 25 mg QDAY LUCHO Administration Simple Syrup 15 ml 11/23/19 11:50 Simple Syrup FEEDTUBE PRN PRN Hypoglycemia BG<70 Simple Syrup 30 ml 11/23/19 11:50 Simple Syrup FEEDTUBE PRN PRN Hypoglycemia Sodium Bicarbonate 325 mg 11/23/19 11:50 Sodium Bicarbonate FEEDTUBE PRN PRN For Clogged Feeding Tube Nutrition/Malnutrition Assess - Dietary Evaluation Nutrition/Malnutrition Findings: Nutrition Notes Start: 11/23/19 11:29 Freq: Status: Active Protocol: Document 03/20/20 12:53 LM (Rec: 03/20/20 12:55 LM [id number]) Nutrition Notes Initial or Follow up Reassessment Current Diagnosis Hypertension Other Pertinent Diagnosis Cardaic arrest, ETOH dependence, UTI Current Diet Jevity 1.2 at 60ml/hr Labs/Tests Reviewed Pertinent Medications Reviewed Height 5 ft 6 in Weight 45.6 kg [place] Body Weight (kg) 59.09 BMI 16.2 Subjective/Other Information TF running at goal. Percent of energy/protein needs met: 100%/100% Burn Absent Trauma Absent GI Symptoms None Current % PO Negligible Interpretation of Weight Loss (severe) >2% in 1 week Muscle Mass Mild Depletion (non-severe) #2 Nutrition Diagnosis Malnutrition Diagnosis Progress(for reassessment Continues documentation) #1 Nutrition Diagnosis Inadequate oral intake Diagnosis Progress(for reassessment Continues documentation) Is patient on ventilator? No Is Patient Ambulatory and/or Out of Bed No REE-([facility]-confined to bed) 1286.028 Kcal/Kg value to use for calculation 38 Approximate Energy Requirements Using 1733 kcal/Kg Calculation Used for Recommendations Kcal/kg Additional Notes Protein: 60-75g (1.2-1.5g/kg) Fluid: 1 ml/kcal Nutrition Intervention Change Diet Order: Continue TF Nutrition Support: Jevity 1.2 at 60ml/hr Flush 100ml q4h Kcal 1,728 Protein (gm) 80 Fluid (mL) 1,162 Goal #1 TF tolerance Goal #2 Meet at least 80% of energy and protein needs via TF Goal #3 Wt gain/maintenacne Anticipated Discharge Needs: TF Follow-Up By: 03/27/20 Additional Comments F/u for TF tolerance
--- NOTE | 2020-03-26 12:53 | Progress Note ---
Assessment and Plan Patient Decanulated. Patient awake.Patient is on 2 1/2 litres O2 via nasal canula. O2 saturation 100%. No acute respiratory distress. Recommend physical therapy. - Patient Problems (1) Acute respiratory failure Current Visit: Yes Status: Acute Qualifiers: Respiratory failure complication: hypoxia Qualified Code(s): J96.01 - Acute respiratory failure with hypoxia Plan to address problem: Patient decanulated and on 2 1/2 litres O2. O2 saturation 100%. Aspiration precautions. Continue albuterol/atrovent aerosol treatments q 6 hours. (2) Alcohol abuse Current Visit: Yes Status: Acute Plan to address problem: Management as per primary care. (3) Cardiac arrest with successful resuscitation Current Visit: Yes Status: Acute Plan to address problem: Patient successfully resucitated. S/P tracheostomy, Decanulated.Resting On O2 2 1/2 litres. O2 saturation 100%. (4) Increased ammonia level Current Visit: Yes Status: Acute Plan to address problem: Management as per primary care. (5) Seizure disorder Current Visit: Yes Status: Acute Plan to address problem: Management as per primary care and neurology. (6) HTN (hypertension) Current Visit: No Status: Acute Plan to address problem: Management as per primary care. Subjective Date of service: 03/26/20 Principal diagnosis: Ac cardiopulmonary arrest; Ac hypoxemic resp failure; Acute encephalopathy Interval history: Patient Decanulated. Patient awake.Patient is on 2 1/2 litres O2 via nasal canula. O2 saturation 100%. No acute respiratory distress. Recommend physical therapy. Objective Vital Signs - 12hr 03/26/20 03/26/20 03/26/20 03:32 03:33 08:58 Temperature 98.3 F 98.3 F Pulse Rate 62 Pulse Rate [ 102 H Anterior Bilateral Throughout] Respiratory 18 18 Rate Respiratory 16 Rate [Anterior Bilateral Throughout] Blood Pressure 144/94 O2 Sat by Pulse 97 Oximetry 03/26/20 09:02 Temperature Pulse Rate Pulse Rate [ Anterior Bilateral Throughout] Respiratory Rate Respiratory Rate [Anterior Bilateral Throughout] Blood Pressure O2 Sat by Pulse 98 Oximetry Constitutional: no acute distress, alert Eyes: non-icteric ENT: oropharynx moist, other (Patient decannulated.) Neck: supple, no lymphadenopathy, no JVD Effort: normal Ascultation: Bilateral: diminished breath sounds, rhonchi Percussion: Bilateral: not dull Cardiovascular: regular rate and rhythm (tachycardia), other (S1,S2) Gastrointestinal: normoactive bowel sounds, soft, non-tender, non-distended Integumentary: normal Extremities: no cyanosis, no edema, pulses normal, no ischemia or petechiae Neurologic: non-focal exam, pupils equal and round, CN II-XII normal Psychiatric: affect normal CBC and BMP: 03/25/20 04:28 03/25/20 04:28 ABG, PT/INR, D-dimer: ABG ABG pH 7.433 pH Units (7.350-7.450) 03/08/20 13:25 ABG pCO2 40.2 mm Hg 03/08/20 13:25 ABG pO2 71.1 mm Hg (80.0-90.0) L 03/08/20 13:25 ABG O2 Saturation 97.0 % (95.0-99.0) 03/08/20 13:25 PT/INR, D-dimer PT 17.0 Sec. (12.2-14.9) H 11/23/19 03:47 INR 1.36 (0.87-1.13) H 11/23/19 03:47 Abnormal lab findings: Abnormal Labs 11/22/19 11/22/19 11/22/19 23:17 23:18 23:27 WBC 21.2 H RBC 3.59 L Hgb 9.8 L Hct MCH 27 L RDW 18.6 H Plt Count 454 H Lymph % (Auto) [place] % (Auto) [place] # Baso # Seg Neutrophils % Seg Neuts % (Manual) 86.0 H Lymphocytes % (Manual) 9.0 L Monocytes % (Manual) Seg Neutrophils # Seg Neutrophils # Man 18.2 H Lymphocytes # (Manual) Monocytes # (Manual) 1.1 H Eosinophils # (Manual) Basophils # (Manual) PT INR APTT ABG pH ABG pO2 ABG HCO3 ABG O2 Saturation ABG Base Excess ABG Hemoglobin Oxyhemoglobin Sodium Potassium Chloride Carbon Dioxide BUN Creatinine Glucose POC Glucose 53 L Lactic Acid Calcium Ionized Calcium Phosphorus Magnesium Total Bilirubin AST ALT Alkaline Phosphatase Ammonia Total Creatine Kinase CK-MB (CK-2) CK-MB (CK-2) Rel Index Total Protein Albumin Urine WBC (Auto) 40.0 H Vancomycin Trough Salicylates Acetaminophen Plasma/Serum Alcohol Crossmatch 11/22/19 11/22/19 11/22/19 23:27 23:27 23:27 WBC RBC Hgb Hct MCH RDW Plt Count Lymph % (Auto) [place] % (Auto) [place] # Baso # Seg Neutrophils % Seg Neuts % (Manual) Lymphocytes % (Manual) Monocytes % (Manual) Seg Neutrophils # Seg Neutrophils # Man Lymphocytes # (Manual) Monocytes # (Manual) Eosinophils # (Manual) Basophils # (Manual) PT INR APTT ABG pH ABG pO2 ABG HCO3 ABG O2 Saturation ABG Base Excess ABG Hemoglobin Oxyhemoglobin Sodium Potassium 2.4 L* Chloride 85.1 L Carbon Dioxide 19 L BUN Creatinine 0.5 L Glucose 261 H POC Glucose Lactic Acid Calcium Ionized Calcium Phosphorus Magnesium Total Bilirubin AST 609 H ALT 152 H Alkaline Phosphatase 160 H Ammonia 117.0 H Total Creatine Kinase 139 H CK-MB (CK-2) 8.3 H CK-MB (CK-2) Rel Index 5.9 H Total Protein Albumin 3.6 L Urine WBC (Auto) Vancomycin Trough Salicylates < 0.3 L Acetaminophen Plasma/Serum Alcohol Crossmatch 11/22/19 11/22/19 11/23/19 23:27 23:27 01:10 WBC RBC Hgb Hct MCH RDW Plt Count Lymph % (Auto) [place] % (Auto) [place] # Baso # Seg Neutrophils % Seg Neuts % (Manual) Lymphocytes % (Manual) Monocytes % (Manual) Seg Neutrophils # Seg Neutrophils # Man Lymphocytes # (Manual) Monocytes # (Manual) Eosinophils # (Manual) Basophils # (Manual) PT INR APTT ABG pH 7.273 L ABG pO2 209.7 H ABG HCO3 ABG O2 Saturation 99.2 H ABG Base Excess -3.9 L ABG Hemoglobin 10.6 L Oxyhemoglobin 93.9 L Sodium Potassium Chloride Carbon Dioxide BUN Creatinine Glucose POC Glucose Lactic Acid Calcium Ionized Calcium Phosphorus Magnesium Total Bilirubin AST ALT Alkaline Phosphatase Ammonia Total Creatine Kinase CK-MB (CK-2) CK-MB (CK-2) Rel Index Total Protein Albumin Urine WBC (Auto) Vancomycin Trough Salicylates Acetaminophen < 5.0 L Plasma/Serum Alcohol 0.08 H Crossmatch 11/23/19 11/23/19 11/23/19 01:19 01:19 03:47 WBC RBC Hgb Hct MCH RDW Plt Count Lymph % (Auto) [place] % (Auto) [place] # Baso # Seg Neutrophils % Seg Neuts % (Manual) Lymphocytes % (Manual) Monocytes % (Manual) Seg Neutrophils # Seg Neutrophils # Man Lymphocytes # (Manual) Monocytes # (Manual) Eosinophils # (Manual) Basophils # (Manual) PT 16.3 H INR 1.29 H APTT ABG pH ABG pO2 ABG HCO3 ABG O2 Saturation ABG Base Excess ABG Hemoglobin Oxyhemoglobin Sodium Potassium Chloride Carbon Dioxide BUN Creatinine Glucose POC Glucose Lactic Acid 2.10 H* 5.00 H* Calcium Ionized Calcium Phosphorus Magnesium Total Bilirubin AST ALT Alkaline Phosphatase Ammonia Total Creatine Kinase CK-MB (CK-2) CK-MB (CK-2) Rel Index Total Protein Albumin Urine WBC (Auto) Vancomycin Trough Salicylates Acetaminophen Plasma/Serum Alcohol Crossmatch 11/23/19 11/23/19 11/23/19 03:47 03:47 04:53 WBC RBC Hgb 9.4 L Hct MCH RDW Plt Count Lymph % (Auto) [place] % (Auto) [place] # Baso # Seg Neutrophils % Seg Neuts % (Manual) Lymphocytes % (Manual) Monocytes % (Manual) Seg Neutrophils # Seg Neutrophils # Man Lymphocytes # (Manual) Monocytes # (Manual) Eosinophils # (Manual) Basophils # (Manual) PT 17.0 H INR 1.36 H APTT 128.2 H* ABG pH ABG pO2 ABG HCO3 ABG O2 Saturation ABG Base Excess ABG Hemoglobin Oxyhemoglobin Sodium Potassium Chloride Carbon Dioxide 18 L BUN Creatinine 0.5 L Glucose 105 H POC Glucose Lactic Acid Calcium 8.3 L Ionized Calcium Phosphorus 2.40 L Magnesium Total Bilirubin 1.30 H AST 761 H ALT 158 H Alkaline Phosphatase 143 H Ammonia Total Creatine Kinase CK-MB (CK-2) CK-MB (CK-2) Rel Index Total Protein Albumin 2.8 L Urine WBC (Auto) Vancomycin Trough Salicylates Acetaminophen Plasma/Serum Alcohol Crossmatch 11/23/19 11/23/19 11/23/19 05:12 06:32 06:32 WBC 16.8 H RBC 3.31 L Hgb 8.9 L Hct 28.7 L MCH 27 L RDW 18.6 H Plt Count Lymph % (Auto) [place] % (Auto) [place] # Baso # Seg Neutrophils % Seg Neuts % (Manual) 94.0 H Lymphocytes % (Manual) 1.0 L Monocytes % (Manual) Seg Neutrophils # Seg Neutrophils # Man 15.8 H Lymphocytes # (Manual) 0.2 L Monocytes # (Manual) Eosinophils # (Manual) Basophils # (Manual) PT INR APTT ABG pH ABG pO2 ABG HCO3 ABG O2 Saturation ABG Base Excess -3.2 L ABG Hemoglobin 9.0 L Oxyhemoglobin 93.6 L Sodium Potassium Chloride Carbon Dioxide BUN Creatinine Glucose POC Glucose Lactic Acid Calcium Ionized Calcium 4.5 L Phosphorus Magnesium Total Bilirubin AST ALT Alkaline Phosphatase Ammonia Total Creatine Kinase CK-MB (CK-2) CK-MB (CK-2) Rel Index Total Protein Albumin Urine WBC (Auto) Vancomycin Trough Salicylates Acetaminophen Plasma/Serum Alcohol Crossmatch 11/23/19 11/24/19 11/24/19 06:32 04:35 04:35 WBC RBC Hgb Hct MCH RDW Plt Count Lymph % (Auto) [place] % (Auto) [place] # Baso # Seg Neutrophils % Seg Neuts % (Manual) Lymphocytes % (Manual) Monocytes % (Manual) Seg Neutrophils # Seg Neutrophils # Man Lymphocytes # (Manual) Monocytes # (Manual) Eosinophils # (Manual) Basophils # (Manual) PT INR APTT ABG pH ABG pO2 ABG HCO3 ABG O2 Saturation ABG Base Excess ABG Hemoglobin Oxyhemoglobin Sodium Potassium Chloride Carbon Dioxide BUN Creatinine Glucose POC Glucose Lactic Acid 3.30 H* Calcium Ionized Calcium Phosphorus Magnesium 1.40 L Total Bilirubin AST ALT Alkaline Phosphatase Ammonia 98.0 H Total Creatine Kinase CK-MB (CK-2) CK-MB (CK-2) Rel Index Total Protein Albumin Urine WBC (Auto) Vancomycin Trough Salicylates Acetaminophen Plasma/Serum Alcohol Crossmatch 11/24/19 11/25/19 11/25/19 05:22 04:34 05:05 WBC 17.3 H RBC 2.88 L Hgb 7.8 L Hct 24.6 L MCH 27 L RDW 18.5 H Plt Count Lymph % (Auto) 7.7 L [place] % (Auto) 9.7 H [place] # 1.7 H Baso # Seg Neutrophils % 82.2 H Seg Neuts % (Manual) Lymphocytes % (Manual) Monocytes % (Manual) Seg Neutrophils # 14.2 H Seg Neutrophils # Man Lymphocytes # (Manual) Monocytes # (Manual) Eosinophils # (Manual) Basophils # (Manual) PT INR APTT ABG pH 7.475 H ABG pO2 ABG HCO3 29.4 H 32.3 H ABG O2 Saturation ABG Base Excess 5.4 H 6.9 H ABG Hemoglobin 9.0 L 10.6 L Oxyhemoglobin 94.3 L Sodium Potassium Chloride Carbon Dioxide BUN Creatinine Glucose POC Glucose Lactic Acid Calcium Ionized Calcium Phosphorus Magnesium Total Bilirubin AST ALT Alkaline Phosphatase Ammonia Total Creatine Kinase CK-MB (CK-2) CK-MB (CK-2) Rel Index Total Protein Albumin Urine WBC (Auto) Vancomycin Trough Salicylates Acetaminophen Plasma/Serum Alcohol Crossmatch 11/25/19 11/25/19 11/26/19 05:05 22:46 03:31 WBC RBC Hgb Hct MCH RDW Plt Count Lymph % (Auto) [place] % (Auto) [place] # Baso # Seg Neutrophils % Seg Neuts % (Manual) Lymphocytes % (Manual) Monocytes % (Manual) Seg Neutrophils # Seg Neutrophils # Man Lymphocytes # (Manual) Monocytes # (Manual) Eosinophils # (Manual) Basophils # (Manual) PT INR APTT ABG pH 7.459 H ABG pO2 ABG HCO3 34.2 H ABG O2 Saturation ABG Base Excess 9.4 H ABG Hemoglobin 7.6 L Oxyhemoglobin 94.8 L Sodium 152 H D 147 H Potassium 2.3 L* D 2.8 L* D Chloride 107.8 H Carbon Dioxide 31 H D 33 H BUN Creatinine 0.6 L 0.6 L Glucose 148 H 177 H POC Glucose Lactic Acid Calcium Ionized Calcium Phosphorus Magnesium Total Bilirubin AST 105 H ALT 71 H Alkaline Phosphatase 155 H Ammonia Total Creatine Kinase CK-MB (CK-2) CK-MB (CK-2) Rel Index Total Protein 5.2 L D Albumin 2.9 L Urine WBC (Auto) Vancomycin Trough Salicylates Acetaminophen Plasma/Serum Alcohol Crossmatch 11/26/19 11/26/19 11/27/19 08:24 08:24 04:20 WBC 12.0 H RBC 3.00 L Hgb 8.0 L 9.3 L Hct 25.9 L 29.7 L MCH 27 L RDW 18.5 H Plt Count Lymph % (Auto) [place] % (Auto) [place] # Baso # Seg Neutrophils % Seg Neuts % (Manual) 89.0 H Lymphocytes % (Manual) 4.0 L Monocytes % (Manual) Seg Neutrophils # Seg Neutrophils # Man 10.7 H Lymphocytes # (Manual) 0.5 L Monocytes # (Manual) Eosinophils # (Manual) Basophils # (Manual) PT INR APTT ABG pH ABG pO2 ABG HCO3 ABG O2 Saturation ABG Base Excess ABG Hemoglobin Oxyhemoglobin Sodium 146 H Potassium 3.4 L D Chloride Carbon Dioxide BUN Creatinine 0.5 L Glucose 165 H POC Glucose Lactic Acid Calcium Ionized Calcium Phosphorus Magnesium Total Bilirubin AST 57 H ALT Alkaline Phosphatase 166 H Ammonia Total Creatine Kinase CK-MB (CK-2) CK-MB (CK-2) Rel Index Total Protein Albumin 2.9 L Urine WBC (Auto) Vancomycin Trough Salicylates Acetaminophen Plasma/Serum Alcohol Crossmatch 11/27/19 11/27/19 11/27/19 04:28 04:28 04:42 WBC RBC Hgb Hct MCH RDW Plt Count Lymph % (Auto) [place] % (Auto) [place] # Baso # Seg Neutrophils % Seg Neuts % (Manual) Lymphocytes % (Manual) Monocytes % (Manual) Seg Neutrophils # Seg Neutrophils # Man Lymphocytes # (Manual) Monocytes # (Manual) Eosinophils # (Manual) Basophils # (Manual) PT INR APTT ABG pH 7.470 H ABG pO2 74.0 L ABG HCO3 33.8 H ABG O2 Saturation ABG Base Excess 9.1 H ABG Hemoglobin 8.7 L Oxyhemoglobin 94.7 L Sodium 146 H Potassium 2.9 L* Chloride Carbon Dioxide BUN 25 H Creatinine Glucose 213 H POC Glucose Lactic Acid Calcium Ionized Calcium Phosphorus 1.00 L Magnesium Total Bilirubin AST ALT Alkaline Phosphatase Ammonia Total Creatine Kinase CK-MB (CK-2) CK-MB (CK-2) Rel Index Total Protein Albumin Urine WBC (Auto) Vancomycin Trough Salicylates Acetaminophen Plasma/Serum Alcohol Crossmatch 11/27/19 11/27/19 11/27/19 05:37 12:20 15:46 WBC RBC Hgb Hct MCH RDW Plt Count Lymph % (Auto) [place] % (Auto) [place] # Baso # Seg Neutrophils % Seg Neuts % (Manual) Lymphocytes % (Manual) Monocytes % (Manual) Seg Neutrophils # Seg Neutrophils # Man Lymphocytes # (Manual) Monocytes # (Manual) Eosinophils # (Manual) Basophils # (Manual) PT INR APTT ABG pH ABG pO2 ABG HCO3 ABG O2 Saturation ABG Base Excess ABG Hemoglobin Oxyhemoglobin Sodium 146 H Potassium 3.5 L D Chloride Carbon Dioxide BUN 24 H Creatinine 0.6 L Glucose 187 H POC Glucose 117 H 220 H Lactic Acid Calcium Ionized Calcium Phosphorus Magnesium Total Bilirubin AST ALT Alkaline Phosphatase Ammonia Total Creatine Kinase CK-MB (CK-2) CK-MB (CK-2) Rel Index Total Protein Albumin Urine WBC (Auto) Vancomycin Trough Salicylates Acetaminophen Plasma/Serum Alcohol Crossmatch 11/27/19 11/28/19 11/28/19 17:28 05:00 05:02 WBC RBC Hgb Hct MCH RDW Plt Count Lymph % (Auto) [place] % (Auto) [place] # Baso # Seg Neutrophils % Seg Neuts % (Manual) Lymphocytes % (Manual) Monocytes % (Manual) Seg Neutrophils # Seg Neutrophils # Man Lymphocytes # (Manual) Monocytes # (Manual) Eosinophils # (Manual) Basophils # (Manual) PT INR APTT ABG pH ABG pO2 72.4 L ABG HCO3 33.6 H ABG O2 Saturation 94.1 L ABG Base Excess 7.3 H ABG Hemoglobin Oxyhemoglobin 91.8 L Sodium 146 H Potassium 3.3 L Chloride Carbon Dioxide BUN 25 H Creatinine 0.6 L Glucose 176 H POC Glucose 198 H Lactic Acid Calcium Ionized Calcium Phosphorus Magnesium Total Bilirubin AST ALT Alkaline Phosphatase Ammonia Total Creatine Kinase CK-MB (CK-2) CK-MB (CK-2) Rel Index Total Protein Albumin Urine WBC (Auto) Vancomycin Trough Salicylates Acetaminophen Plasma/Serum Alcohol Crossmatch 11/28/19 11/28/19 11/29/19 05:02 18:55 10:43 WBC 15.2 H 19.0 H RBC 3.06 L 3.01 L Hgb 8.3 L 8.3 L Hct 27.0 L 26.4 L MCH 27 L RDW 19.0 H 19.7 H Plt Count 479 H 611 H Lymph % (Auto) [place] % (Auto) [place] # Baso # Seg Neutrophils % Seg Neuts % (Manual) 92.0 H Lymphocytes % (Manual) 2.0 L Monocytes % (Manual) Seg Neutrophils # Seg Neutrophils # Man 14.0 H Lymphocytes # (Manual) 0.3 L Monocytes # (Manual) Eosinophils # (Manual) Basophils # (Manual) PT INR APTT ABG pH ABG pO2 ABG HCO3 ABG O2 Saturation ABG Base Excess ABG Hemoglobin Oxyhemoglobin Sodium Potassium Chloride Carbon Dioxide BUN Creatinine Glucose POC Glucose 138 H Lactic Acid Calcium Ionized Calcium Phosphorus Magnesium Total Bilirubin AST ALT Alkaline Phosphatase Ammonia Total Creatine Kinase CK-MB (CK-2) CK-MB (CK-2) Rel Index Total Protein Albumin Urine WBC (Auto) Vancomycin Trough Salicylates Acetaminophen Plasma/Serum Alcohol Crossmatch 11/29/19 11/29/19 11/29/19 10:43 12:27 19:25 WBC RBC Hgb Hct MCH RDW Plt Count Lymph % (Auto) [place] % (Auto) [place] # Baso # Seg Neutrophils % Seg Neuts % (Manual) Lymphocytes % (Manual) Monocytes % (Manual) Seg Neutrophils # Seg Neutrophils # Man Lymphocytes # (Manual) Monocytes # (Manual) Eosinophils # (Manual) Basophils # (Manual) PT INR APTT ABG pH ABG pO2 ABG HCO3 ABG O2 Saturation ABG Base Excess ABG Hemoglobin Oxyhemoglobin Sodium Potassium 2.8 L* Chloride Carbon Dioxide BUN 20 H Creatinine 0.5 L Glucose 121 H POC Glucose 128 H 120 H Lactic Acid Calcium Ionized Calcium Phosphorus Magnesium Total Bilirubin AST ALT Alkaline Phosphatase Ammonia Total Creatine Kinase CK-MB (CK-2) CK-MB (CK-2) Rel Index Total Protein Albumin Urine WBC (Auto) Vancomycin Trough Salicylates Acetaminophen Plasma/Serum Alcohol Crossmatch 11/29/19 11/30/19 11/30/19 23:46 04:10 05:02 WBC RBC Hgb Hct MCH RDW Plt Count Lymph % (Auto) [place] % (Auto) [place] # Baso # Seg Neutrophils % Seg Neuts % (Manual) Lymphocytes % (Manual) Monocytes % (Manual) Seg Neutrophils # Seg Neutrophils # Man Lymphocytes # (Manual) Monocytes # (Manual) Eosinophils # (Manual) Basophils # (Manual) PT INR APTT ABG pH ABG pO2 76.3 L ABG HCO3 32.5 H ABG O2 Saturation ABG Base Excess 6.9 H ABG Hemoglobin 8.0 L Oxyhemoglobin 92.6 L Sodium Potassium Chloride Carbon Dioxide BUN Creatinine Glucose POC Glucose 116 H 128 H Lactic Acid Calcium Ionized Calcium Phosphorus Magnesium Total Bilirubin AST ALT Alkaline Phosphatase Ammonia Total Creatine Kinase CK-MB (CK-2) CK-MB (CK-2) Rel Index Total Protein Albumin Urine WBC (Auto) Vancomycin Trough Salicylates Acetaminophen Plasma/Serum Alcohol Crossmatch 11/30/19 11/30/19 11/30/19 05:25 05:25 12:59 WBC 18.4 H RBC 3.10 L Hgb 8.5 L Hct 27.5 L MCH 27 L RDW 20.9 H Plt Count 691 H Lymph % (Auto) 7.1 L [place] % (Auto) 7.7 H [place] # 1.4 H Baso # Seg Neutrophils % 83.4 H Seg Neuts % (Manual) Lymphocytes % (Manual) Monocytes % (Manual) Seg Neutrophils # 15.4 H Seg Neutrophils # Man Lymphocytes # (Manual) Monocytes # (Manual) Eosinophils # (Manual) Basophils # (Manual) PT INR APTT ABG pH ABG pO2 ABG HCO3 ABG O2 Saturation ABG Base Excess ABG Hemoglobin Oxyhemoglobin Sodium 146 H Potassium Chloride 107.2 H Carbon Dioxide BUN Creatinine 0.5 L Glucose 132 H POC Glucose 124 H Lactic Acid Calcium Ionized Calcium Phosphorus Magnesium Total Bilirubin AST 246 H ALT 274 H Alkaline Phosphatase 203 H Ammonia Total Creatine Kinase CK-MB (CK-2) CK-MB (CK-2) Rel Index Total Protein 5.4 L Albumin 2.9 L Urine WBC (Auto) Vancomycin Trough Salicylates Acetaminophen Plasma/Serum Alcohol Crossmatch 11/30/19 12/01/19 12/01/19 17:53 00:05 05:10 WBC RBC Hgb Hct MCH RDW Plt Count Lymph % (Auto) [place] % (Auto) [place] # Baso # Seg Neutrophils % Seg Neuts % (Manual) Lymphocytes % (Manual) Monocytes % (Manual) Seg Neutrophils # Seg Neutrophils # Man Lymphocytes # (Manual) Monocytes # (Manual) Eosinophils # (Manual) Basophils # (Manual) PT INR APTT ABG pH ABG pO2 ABG HCO3 ABG O2 Saturation ABG Base Excess ABG Hemoglobin Oxyhemoglobin Sodium Potassium Chloride Carbon Dioxide BUN Creatinine Glucose POC Glucose 113 H 143 H 145 H Lactic Acid Calcium Ionized Calcium Phosphorus Magnesium Total Bilirubin AST ALT Alkaline Phosphatase Ammonia Total Creatine Kinase CK-MB (CK-2) CK-MB (CK-2) Rel Index Total Protein Albumin Urine WBC (Auto) Vancomycin Trough Salicylates Acetaminophen Plasma/Serum Alcohol Crossmatch 12/01/19 12/01/19 12/01/19 05:33 08:23 08:23 WBC 22.7 H RBC 2.88 L Hgb 7.9 L Hct 25.2 L MCH 27 L RDW 21.0 H Plt Count 732 H Lymph % (Auto) [place] % (Auto) [place] # Baso # Seg Neutrophils % Seg Neuts % (Manual) 91.0 H Lymphocytes % (Manual) 3.0 L Monocytes % (Manual) Seg Neutrophils # Seg Neutrophils # Man 20.7 H Lymphocytes # (Manual) 0.7 L Monocytes # (Manual) 1.1 H Eosinophils # (Manual) Basophils # (Manual) PT INR APTT ABG pH ABG pO2 68.6 L ABG HCO3 34.1 H ABG O2 Saturation ABG Base Excess 9.0 H ABG Hemoglobin 6.5 L Oxyhemoglobin 94.7 L Sodium Potassium Chloride Carbon Dioxide BUN Creatinine 0.5 L Glucose 125 H POC Glucose Lactic Acid Calcium Ionized Calcium Phosphorus Magnesium Total Bilirubin AST ALT Alkaline Phosphatase Ammonia Total Creatine Kinase CK-MB (CK-2) CK-MB (CK-2) Rel Index Total Protein Albumin Urine WBC (Auto) Vancomycin Trough Salicylates Acetaminophen Plasma/Serum Alcohol Crossmatch 12/01/19 12/01/19 12/01/19 13:21 17:54 20:59 WBC RBC Hgb Hct MCH RDW Plt Count Lymph % (Auto) [place] % (Auto) [place] # Baso # Seg Neutrophils % Seg Neuts % (Manual) Lymphocytes % (Manual) Monocytes % (Manual) Seg Neutrophils # Seg Neutrophils # Man Lymphocytes # (Manual) Monocytes # (Manual) Eosinophils # (Manual) Basophils # (Manual) PT INR APTT ABG pH ABG pO2 78.3 L ABG HCO3 33.8 H ABG O2 Saturation 94.9 L ABG Base Excess 7.9 H ABG Hemoglobin 11.5 L Oxyhemoglobin 92.3 L Sodium Potassium Chloride Carbon Dioxide BUN Creatinine Glucose POC Glucose 111 H 115 H Lactic Acid Calcium Ionized Calcium Phosphorus Magnesium Total Bilirubin AST ALT Alkaline Phosphatase Ammonia Total Creatine Kinase CK-MB (CK-2) CK-MB (CK-2) Rel Index Total Protein Albumin Urine WBC (Auto) Vancomycin Trough Salicylates Acetaminophen Plasma/Serum Alcohol Crossmatch 12/02/19 12/03/19 12/04/19 12:55 20:00 04:26 WBC 15.2 H RBC 2.69 L Hgb 7.4 L Hct 23.6 L MCH 27 L RDW 19.9 H Plt Count 838 H Lymph % (Auto) [place] % (Auto) [place] # Baso # Seg Neutrophils % Seg Neuts % (Manual) Lymphocytes % (Manual) Monocytes % (Manual) Seg Neutrophils # Seg Neutrophils # Man Lymphocytes # (Manual) Monocytes # (Manual) Eosinophils # (Manual) Basophils # (Manual) PT INR APTT ABG pH ABG pO2 68.3 L ABG HCO3 33.5 H ABG O2 Saturation 93.5 L ABG Base Excess 8.4 H ABG Hemoglobin 7.3 L Oxyhemoglobin 90.9 L Sodium Potassium Chloride Carbon Dioxide BUN Creatinine Glucose POC Glucose 107 H Lactic Acid Calcium Ionized Calcium Phosphorus Magnesium Total Bilirubin AST ALT Alkaline Phosphatase Ammonia Total Creatine Kinase CK-MB (CK-2) CK-MB (CK-2) Rel Index Total Protein Albumin Urine WBC (Auto) Vancomycin Trough Salicylates Acetaminophen Plasma/Serum Alcohol Crossmatch 12/04/19 12/04/19 12/04/19 04:26 07:45 12:02 WBC 15.9 H RBC 2.88 L Hgb 7.9 L Hct 25.1 L MCH RDW 20.4 H Plt Count 839 H Lymph % (Auto) 11.3 L [place] % (Auto) 15.2 H [place] # 2.4 H Baso # Seg Neutrophils % 72.4 H Seg Neuts % (Manual) Lymphocytes % (Manual) Monocytes % (Manual) Seg Neutrophils # 11.5 H Seg Neutrophils # Man Lymphocytes # (Manual) Monocytes # (Manual) Eosinophils # (Manual) Basophils # (Manual) PT INR APTT ABG pH ABG pO2 ABG HCO3 ABG O2 Saturation ABG Base Excess ABG Hemoglobin Oxyhemoglobin Sodium Potassium Chloride 96.5 L Carbon Dioxide BUN 21 H Creatinine 0.6 L Glucose 107 H POC Glucose 138 H Lactic Acid Calcium Ionized Calcium Phosphorus Magnesium Total Bilirubin AST ALT Alkaline Phosphatase Ammonia Total Creatine Kinase CK-MB (CK-2) CK-MB (CK-2) Rel Index Total Protein Albumin Urine WBC (Auto) Vancomycin Trough Salicylates Acetaminophen Plasma/Serum Alcohol Crossmatch 12/04/19 12/05/19 12/05/19 18:16 11:55 18:36 WBC RBC Hgb Hct MCH RDW Plt Count Lymph % (Auto) [place] % (Auto) [place] # Baso # Seg Neutrophils % Seg Neuts % (Manual) Lymphocytes % (Manual) Monocytes % (Manual) Seg Neutrophils # Seg Neutrophils # Man Lymphocytes # (Manual) Monocytes # (Manual) Eosinophils # (Manual) Basophils # (Manual) PT INR APTT ABG pH ABG pO2 ABG HCO3 ABG O2 Saturation ABG Base Excess ABG Hemoglobin Oxyhemoglobin Sodium Potassium Chloride Carbon Dioxide BUN Creatinine Glucose POC Glucose 135 H 125 H 135 H Lactic Acid Calcium Ionized Calcium Phosphorus Magnesium Total Bilirubin AST ALT Alkaline Phosphatase Ammonia Total Creatine Kinase CK-MB (CK-2) CK-MB (CK-2) Rel Index Total Protein Albumin Urine WBC (Auto) Vancomycin Trough Salicylates Acetaminophen Plasma/Serum Alcohol Crossmatch 12/05/19 12/06/19 12/06/19 23:30 04:14 05:43 WBC RBC Hgb Hct MCH RDW Plt Count Lymph % (Auto) [place] % (Auto) [place] # Baso # Seg Neutrophils % Seg Neuts % (Manual) Lymphocytes % (Manual) Monocytes % (Manual) Seg Neutrophils # Seg Neutrophils # Man Lymphocytes # (Manual) Monocytes # (Manual) Eosinophils # (Manual) Basophils # (Manual) PT INR APTT ABG pH ABG pO2 ABG HCO3 ABG O2 Saturation ABG Base Excess ABG Hemoglobin Oxyhemoglobin Sodium Potassium 5.6 H Chloride 95.0 L Carbon Dioxide BUN 48 H Creatinine 1.3 H D Glucose POC Glucose 126 H 121 H Lactic Acid Calcium Ionized Calcium Phosphorus Magnesium Total Bilirubin AST 89 H ALT 98 H Alkaline Phosphatase 476 H Ammonia Total Creatine Kinase CK-MB (CK-2) CK-MB (CK-2) Rel Index Total Protein Albumin 2.8 L Urine WBC (Auto) Vancomycin Trough Salicylates Acetaminophen Plasma/Serum Alcohol Crossmatch 12/06/19 12/06/19 12/07/19 10:39 14:34 00:19 WBC 17.3 H RBC 2.60 L Hgb 7.1 L Hct 22.7 L MCH 27 L RDW 20.1 H Plt Count 832 H Lymph % (Auto) [place] % (Auto) [place] # Baso # Seg Neutrophils % Seg Neuts % (Manual) Lymphocytes % (Manual) Monocytes % (Manual) Seg Neutrophils # Seg Neutrophils # Man Lymphocytes # (Manual) Monocytes # (Manual) Eosinophils # (Manual) Basophils # (Manual) PT INR APTT ABG pH ABG pO2 ABG HCO3 ABG O2 Saturation ABG Base Excess ABG Hemoglobin Oxyhemoglobin Sodium Potassium Chloride Carbon Dioxide BUN Creatinine Glucose POC Glucose 128 H 136 H Lactic Acid Calcium Ionized Calcium Phosphorus Magnesium Total Bilirubin AST ALT Alkaline Phosphatase Ammonia Total Creatine Kinase CK-MB (CK-2) CK-MB (CK-2) Rel Index Total Protein Albumin Urine WBC (Auto) Vancomycin Trough Salicylates Acetaminophen Plasma/Serum Alcohol Crossmatch 12/07/19 12/07/19 12/07/19 03:44 03:44 05:53 WBC 16.2 H RBC 2.56 L Hgb 7.1 L Hct 22.3 L MCH RDW 19.4 H Plt Count 782 H Lymph % (Auto) [place] % (Auto) [place] # Baso # Seg Neutrophils % Seg Neuts % (Manual) Lymphocytes % (Manual) Monocytes % (Manual) Seg Neutrophils # Seg Neutrophils # Man Lymphocytes # (Manual) Monocytes # (Manual) Eosinophils # (Manual) Basophils # (Manual) PT INR APTT ABG pH ABG pO2 ABG HCO3 ABG O2 Saturation ABG Base Excess ABG Hemoglobin Oxyhemoglobin Sodium Potassium Chloride 95.6 L Carbon Dioxide BUN 56 H Creatinine 1.4 H Glucose 120 H POC Glucose 128 H Lactic Acid Calcium 10.3 H Ionized Calcium Phosphorus Magnesium Total Bilirubin AST ALT Alkaline Phosphatase Ammonia Total Creatine Kinase CK-MB (CK-2) CK-MB (CK-2) Rel Index Total Protein Albumin Urine WBC (Auto) Vancomycin Trough Salicylates Acetaminophen Plasma/Serum Alcohol Crossmatch 12/07/19 12/07/19 12/08/19 12:54 23:47 00:20 WBC RBC Hgb Hct MCH RDW Plt Count Lymph % (Auto) [place] % (Auto) [place] # Baso # Seg Neutrophils % Seg Neuts % (Manual) Lymphocytes % (Manual) Monocytes % (Manual) Seg Neutrophils # Seg Neutrophils # Man Lymphocytes # (Manual) Monocytes # (Manual) Eosinophils # (Manual) Basophils # (Manual) PT INR APTT ABG pH ABG pO2 ABG HCO3 ABG O2 Saturation ABG Base Excess ABG Hemoglobin Oxyhemoglobin Sodium Potassium Chloride Carbon Dioxide BUN Creatinine Glucose POC Glucose 128 H 130 H 124 H Lactic Acid Calcium Ionized Calcium Phosphorus Magnesium Total Bilirubin AST ALT Alkaline Phosphatase Ammonia Total Creatine Kinase CK-MB (CK-2) CK-MB (CK-2) Rel Index Total Protein Albumin Urine WBC (Auto) Vancomycin Trough Salicylates Acetaminophen Plasma/Serum Alcohol Crossmatch 12/08/19 12/08/19 12/08/19 06:38 12:04 18:26 WBC RBC Hgb Hct MCH RDW Plt Count Lymph % (Auto) [place] % (Auto) [place] # Baso # Seg Neutrophils % Seg Neuts % (Manual) Lymphocytes % (Manual) Monocytes % (Manual) Seg Neutrophils # Seg Neutrophils # Man Lymphocytes # (Manual) Monocytes # (Manual) Eosinophils # (Manual) Basophils # (Manual) PT INR APTT ABG pH ABG pO2 ABG HCO3 ABG O2 Saturation ABG Base Excess ABG Hemoglobin Oxyhemoglobin Sodium Potassium Chloride Carbon Dioxide BUN Creatinine Glucose POC Glucose 137 H 129 H 150 H Lactic Acid Calcium Ionized Calcium Phosphorus Magnesium Total Bilirubin AST ALT Alkaline Phosphatase Ammonia Total Creatine Kinase CK-MB (CK-2) CK-MB (CK-2) Rel Index Total Protein Albumin Urine WBC (Auto) Vancomycin Trough Salicylates Acetaminophen Plasma/Serum Alcohol Crossmatch 12/09/19 12/09/19 12/09/19 00:56 05:34 06:13 WBC RBC Hgb Hct MCH RDW Plt Count Lymph % (Auto) [place] % (Auto) [place] # Baso # Seg Neutrophils % Seg Neuts % (Manual) Lymphocytes % (Manual) Monocytes % (Manual) Seg Neutrophils # Seg Neutrophils # Man Lymphocytes # (Manual) Monocytes # (Manual) Eosinophils # (Manual) Basophils # (Manual) PT INR APTT ABG pH ABG pO2 ABG HCO3 ABG O2 Saturation ABG Base Excess ABG Hemoglobin Oxyhemoglobin Sodium 146 H Potassium Chloride Carbon Dioxide BUN 66 H Creatinine 1.9 H Glucose 116 H POC Glucose 130 H 130 H Lactic Acid Calcium Ionized Calcium Phosphorus Magnesium Total Bilirubin AST ALT Alkaline Phosphatase Ammonia Total Creatine Kinase CK-MB (CK-2) CK-MB (CK-2) Rel Index Total Protein Albumin Urine WBC (Auto) Vancomycin Trough Salicylates Acetaminophen Plasma/Serum Alcohol Crossmatch 12/09/19 12/09/19 12/10/19 11:52 17:50 00:14 WBC RBC Hgb Hct MCH RDW Plt Count Lymph % (Auto) [place] % (Auto) [place] # Baso # Seg Neutrophils % Seg Neuts % (Manual) Lymphocytes % (Manual) Monocytes % (Manual) Seg Neutrophils # Seg Neutrophils # Man Lymphocytes # (Manual) Monocytes # (Manual) Eosinophils # (Manual) Basophils # (Manual) PT INR APTT ABG pH ABG pO2 ABG HCO3 ABG O2 Saturation ABG Base Excess ABG Hemoglobin Oxyhemoglobin Sodium Potassium Chloride Carbon Dioxide BUN Creatinine Glucose POC Glucose 135 H 120 H 116 H Lactic Acid Calcium Ionized Calcium Phosphorus Magnesium Total Bilirubin AST ALT Alkaline Phosphatase Ammonia Total Creatine Kinase CK-MB (CK-2) CK-MB (CK-2) Rel Index Total Protein Albumin Urine WBC (Auto) Vancomycin Trough Salicylates Acetaminophen Plasma/Serum Alcohol Crossmatch 12/10/19 12/10/19 12/10/19 05:38 11:38 17:34 WBC RBC Hgb Hct MCH RDW Plt Count Lymph % (Auto) [place] % (Auto) [place] # Baso # Seg Neutrophils % Seg Neuts % (Manual) Lymphocytes % (Manual) Monocytes % (Manual) Seg Neutrophils # Seg Neutrophils # Man Lymphocytes # (Manual) Monocytes # (Manual) Eosinophils # (Manual) Basophils # (Manual) PT INR APTT ABG pH ABG pO2 ABG HCO3 ABG O2 Saturation ABG Base Excess ABG Hemoglobin Oxyhemoglobin Sodium Potassium Chloride Carbon Dioxide BUN Creatinine Glucose POC Glucose 115 H 112 H 130 H Lactic Acid Calcium Ionized Calcium Phosphorus Magnesium Total Bilirubin AST ALT Alkaline Phosphatase Ammonia Total Creatine Kinase CK-MB (CK-2) CK-MB (CK-2) Rel Index Total Protein Albumin Urine WBC (Auto) Vancomycin Trough Salicylates Acetaminophen Plasma/Serum Alcohol Crossmatch 12/11/19 12/11/19 12/11/19 00:20 05:31 12:22 WBC RBC Hgb Hct MCH RDW Plt Count Lymph % (Auto) [place] % (Auto) [place] # Baso # Seg Neutrophils % Seg Neuts % (Manual) Lymphocytes % (Manual) Monocytes % (Manual) Seg Neutrophils # Seg Neutrophils # Man Lymphocytes # (Manual) Monocytes # (Manual) Eosinophils # (Manual) Basophils # (Manual) PT INR APTT ABG pH ABG pO2 ABG HCO3 ABG O2 Saturation ABG Base Excess ABG Hemoglobin Oxyhemoglobin Sodium Potassium Chloride Carbon Dioxide BUN Creatinine Glucose POC Glucose 124 H 132 H 128 H Lactic Acid Calcium Ionized Calcium Phosphorus Magnesium Total Bilirubin AST ALT Alkaline Phosphatase Ammonia Total Creatine Kinase CK-MB (CK-2) CK-MB (CK-2) Rel Index Total Protein Albumin Urine WBC (Auto) Vancomycin Trough Salicylates Acetaminophen Plasma/Serum Alcohol Crossmatch 12/11/19 12/11/19 12/12/19 18:04 23:42 03:51 WBC RBC Hgb Hct MCH RDW Plt Count Lymph % (Auto) [place] % (Auto) [place] # Baso # Seg Neutrophils % Seg Neuts % (Manual) Lymphocytes % (Manual) Monocytes % (Manual) Seg Neutrophils # Seg Neutrophils # Man Lymphocytes # (Manual) Monocytes # (Manual) Eosinophils # (Manual) Basophils # (Manual) PT INR APTT ABG pH ABG pO2 ABG HCO3 ABG O2 Saturation ABG Base Excess ABG Hemoglobin Oxyhemoglobin Sodium 149 H Potassium Chloride Carbon Dioxide 20 L D BUN 77 H Creatinine 2.8 H Glucose POC Glucose 133 H 154 H Lactic Acid Calcium Ionized Calcium Phosphorus Magnesium Total Bilirubin AST ALT Alkaline Phosphatase Ammonia Total Creatine Kinase CK-MB (CK-2) CK-MB (CK-2) Rel Index Total Protein Albumin Urine WBC (Auto) Vancomycin Trough Salicylates Acetaminophen Plasma/Serum Alcohol Crossmatch 12/12/19 12/12/19 12/12/19 05:18 05:26 10:30 WBC 18.0 H RBC 2.51 L Hgb 6.8 L Hct 22.0 L MCH 27 L RDW 19.9 H Plt Count 582 H Lymph % (Auto) [place] % (Auto) [place] # Baso # Seg Neutrophils % Seg Neuts % (Manual) Lymphocytes % (Manual) Monocytes % (Manual) Seg Neutrophils # Seg Neutrophils # Man Lymphocytes # (Manual) Monocytes # (Manual) Eosinophils # (Manual) Basophils # (Manual) PT INR APTT ABG pH ABG pO2 ABG HCO3 ABG O2 Saturation ABG Base Excess ABG Hemoglobin Oxyhemoglobin Sodium Potassium Chloride Carbon Dioxide BUN Creatinine Glucose POC Glucose 135 H Lactic Acid Calcium Ionized Calcium Phosphorus Magnesium Total Bilirubin AST ALT Alkaline Phosphatase Ammonia Total Creatine Kinase CK-MB (CK-2) CK-MB (CK-2) Rel Index Total Protein Albumin Urine WBC (Auto) Vancomycin Trough Salicylates Acetaminophen Plasma/Serum Alcohol Crossmatch See Detail 12/12/19 12/12/19 12/12/19 11:44 18:10 23:21 WBC RBC Hgb Hct MCH RDW Plt Count Lymph % (Auto) [place] % (Auto) [place] # Baso # Seg Neutrophils % Seg Neuts % (Manual) Lymphocytes % (Manual) Monocytes % (Manual) Seg Neutrophils # Seg Neutrophils # Man Lymphocytes # (Manual) Monocytes # (Manual) Eosinophils # (Manual) Basophils # (Manual) PT INR APTT ABG pH ABG pO2 ABG HCO3 ABG O2 Saturation ABG Base Excess ABG Hemoglobin Oxyhemoglobin Sodium Potassium Chloride Carbon Dioxide BUN Creatinine Glucose POC Glucose 108 H 107 H 126 H Lactic Acid Calcium Ionized Calcium Phosphorus Magnesium Total Bilirubin AST ALT Alkaline Phosphatase Ammonia Total Creatine Kinase CK-MB (CK-2) CK-MB (CK-2) Rel Index Total Protein Albumin Urine WBC (Auto) Vancomycin Trough Salicylates Acetaminophen Plasma/Serum Alcohol Crossmatch 12/13/19 12/13/19 12/13/19 05:41 07:48 07:48 WBC 38.3 H RBC 2.37 L Hgb 6.3 L Hct 20.9 L MCH 27 L RDW 20.2 H Plt Count 546 H Lymph % (Auto) [place] % (Auto) [place] # Baso # Seg Neutrophils % Seg Neuts % (Manual) 93.0 H Lymphocytes % (Manual) 1.0 L Monocytes % (Manual) Seg Neutrophils # Seg Neutrophils # Man 35.6 H Lymphocytes # (Manual) 0.4 L Monocytes # (Manual) Eosinophils # (Manual) Basophils # (Manual) 0.4 H PT INR APTT ABG pH ABG pO2 ABG HCO3 ABG O2 Saturation ABG Base Excess ABG Hemoglobin Oxyhemoglobin Sodium 152 H Potassium 3.1 L D Chloride 111.9 H Carbon Dioxide 21 L BUN 53 H Creatinine 1.9 H Glucose 141 H POC Glucose 128 H Lactic Acid Calcium Ionized Calcium Phosphorus Magnesium Total Bilirubin AST ALT Alkaline Phosphatase 316 H Ammonia Total Creatine Kinase CK-MB (CK-2) CK-MB (CK-2) Rel Index Total Protein Albumin 2.4 L Urine WBC (Auto) Vancomycin Trough Salicylates Acetaminophen Plasma/Serum Alcohol Crossmatch 12/13/19 12/13/19 12/14/19 18:17 23:19 05:36 WBC RBC Hgb Hct MCH RDW Plt Count Lymph % (Auto) [place] % (Auto) [place] # Baso # Seg Neutrophils % Seg Neuts % (Manual) Lymphocytes % (Manual) Monocytes % (Manual) Seg Neutrophils # Seg Neutrophils # Man Lymphocytes # (Manual) Monocytes # (Manual) Eosinophils # (Manual) Basophils # (Manual) PT INR APTT ABG pH ABG pO2 ABG HCO3 ABG O2 Saturation ABG Base Excess ABG Hemoglobin Oxyhemoglobin Sodium Potassium Chloride Carbon Dioxide BUN Creatinine Glucose POC Glucose 141 H 158 H 182 H Lactic Acid Calcium Ionized Calcium Phosphorus Magnesium Total Bilirubin AST ALT Alkaline Phosphatase Ammonia Total Creatine Kinase CK-MB (CK-2) CK-MB (CK-2) Rel Index Total Protein Albumin Urine WBC (Auto) Vancomycin Trough Salicylates Acetaminophen Plasma/Serum Alcohol Crossmatch 12/14/19 12/14/19 12/14/19 08:48 08:48 10:31 WBC 33.3 H RBC 2.70 L Hgb 7.9 L 8.0 L Hct 25.3 L 24.0 L MCH RDW 19.2 H Plt Count 476 H Lymph % (Auto) [place] % (Auto) [place] # Baso # Seg Neutrophils % Seg Neuts % (Manual) Lymphocytes % (Manual) Monocytes % (Manual) Seg Neutrophils # Seg Neutrophils # Man Lymphocytes # (Manual) Monocytes # (Manual) Eosinophils # (Manual) Basophils # (Manual) PT INR APTT ABG pH ABG pO2 ABG HCO3 ABG O2 Saturation ABG Base Excess ABG Hemoglobin Oxyhemoglobin Sodium 153 H Potassium 2.5 L* Chloride 114.9 H Carbon Dioxide 20 L BUN 38 H Creatinine 1.4 H Glucose 177 H POC Glucose Lactic Acid Calcium Ionized Calcium Phosphorus Magnesium Total Bilirubin AST ALT Alkaline Phosphatase Ammonia Total Creatine Kinase CK-MB (CK-2) CK-MB (CK-2) Rel Index Total Protein Albumin Urine WBC (Auto) Vancomycin Trough Salicylates Acetaminophen Plasma/Serum Alcohol Crossmatch 12/14/19 12/14/19 12/14/19 12:57 16:15 17:50 WBC RBC Hgb Hct MCH RDW Plt Count Lymph % (Auto) [place] % (Auto) [place] # Baso # Seg Neutrophils % Seg Neuts % (Manual) Lymphocytes % (Manual) Monocytes % (Manual) Seg Neutrophils # Seg Neutrophils # Man Lymphocytes # (Manual) Monocytes # (Manual) Eosinophils # (Manual) Basophils # (Manual) PT INR APTT ABG pH ABG pO2 73.6 L ABG HCO3 ABG O2 Saturation ABG Base Excess ABG Hemoglobin 7.6 L Oxyhemoglobin 94.0 L Sodium Potassium Chloride Carbon Dioxide BUN Creatinine Glucose POC Glucose 174 H 150 H Lactic Acid Calcium Ionized Calcium Phosphorus Magnesium Total Bilirubin AST ALT Alkaline Phosphatase Ammonia Total Creatine Kinase CK-MB (CK-2) CK-MB (CK-2) Rel Index Total Protein Albumin Urine WBC (Auto) Vancomycin Trough Salicylates Acetaminophen Plasma/Serum Alcohol Crossmatch 12/15/19 12/15/19 12/15/19 00:28 05:27 07:23 WBC 30.0 H RBC 3.11 L Hgb 8.6 L Hct 27.7 L MCH RDW 20.0 H Plt Count 473 H Lymph % (Auto) [place] % (Auto) [place] # Baso # Seg Neutrophils % Seg Neuts % (Manual) Lymphocytes % (Manual) Monocytes % (Manual) Seg Neutrophils # Seg Neutrophils # Man Lymphocytes # (Manual) Monocytes # (Manual) Eosinophils # (Manual) Basophils # (Manual) PT INR APTT ABG pH ABG pO2 ABG HCO3 ABG O2 Saturation ABG Base Excess ABG Hemoglobin Oxyhemoglobin Sodium Potassium Chloride Carbon Dioxide BUN Creatinine Glucose POC Glucose 167 H 148 H Lactic Acid Calcium Ionized Calcium Phosphorus Magnesium Total Bilirubin AST ALT Alkaline Phosphatase Ammonia Total Creatine Kinase CK-MB (CK-2) CK-MB (CK-2) Rel Index Total Protein Albumin Urine WBC (Auto) Vancomycin Trough Salicylates Acetaminophen Plasma/Serum Alcohol Crossmatch 12/15/19 12/15/19 12/15/19 07:23 12:21 17:41 WBC RBC Hgb Hct MCH RDW Plt Count Lymph % (Auto) [place] % (Auto) [place] # Baso # Seg Neutrophils % Seg Neuts % (Manual) Lymphocytes % (Manual) Monocytes % (Manual) Seg Neutrophils # Seg Neutrophils # Man Lymphocytes # (Manual) Monocytes # (Manual) Eosinophils # (Manual) Basophils # (Manual) PT INR APTT ABG pH ABG pO2 ABG HCO3 ABG O2 Saturation ABG Base Excess ABG Hemoglobin Oxyhemoglobin Sodium 147 H Potassium 3.5 L D Chloride 111.2 H Carbon Dioxide 19 L BUN 29 H Creatinine Glucose 126 H POC Glucose 154 H 144 H Lactic Acid Calcium Ionized Calcium Phosphorus Magnesium Total Bilirubin AST ALT Alkaline Phosphatase Ammonia Total Creatine Kinase CK-MB (CK-2) CK-MB (CK-2) Rel Index Total Protein Albumin Urine WBC (Auto) Vancomycin Trough Salicylates Acetaminophen Plasma/Serum Alcohol Crossmatch 12/16/19 12/16/19 12/16/19 00:22 05:30 05:44 WBC 30.8 H RBC 2.58 L Hgb 7.1 L Hct 22.7 L MCH RDW 19.6 H Plt Count 451 H Lymph % (Auto) [place] % (Auto) [place] # Baso # Seg Neutrophils % Seg Neuts % (Manual) Lymphocytes % (Manual) Monocytes % (Manual) Seg Neutrophils # Seg Neutrophils # Man Lymphocytes # (Manual) Monocytes # (Manual) Eosinophils # (Manual) Basophils # (Manual) PT INR APTT ABG pH ABG pO2 ABG HCO3 ABG O2 Saturation ABG Base Excess ABG Hemoglobin Oxyhemoglobin Sodium Potassium Chloride Carbon Dioxide BUN Creatinine Glucose POC Glucose 139 H 126 H Lactic Acid Calcium Ionized Calcium Phosphorus Magnesium Total Bilirubin AST ALT Alkaline Phosphatase Ammonia Total Creatine Kinase CK-MB (CK-2) CK-MB (CK-2) Rel Index Total Protein Albumin Urine WBC (Auto) Vancomycin Trough Salicylates Acetaminophen Plasma/Serum Alcohol Crossmatch 12/16/19 12/16/19 12/16/19 05:44 11:48 17:37 WBC RBC Hgb Hct MCH RDW Plt Count Lymph % (Auto) [place] % (Auto) [place] # Baso # Seg Neutrophils % Seg Neuts % (Manual) Lymphocytes % (Manual) Monocytes % (Manual) Seg Neutrophils # Seg Neutrophils # Man Lymphocytes # (Manual) Monocytes # (Manual) Eosinophils # (Manual) Basophils # (Manual) PT INR APTT ABG pH ABG pO2 ABG HCO3 ABG O2 Saturation ABG Base Excess ABG Hemoglobin Oxyhemoglobin Sodium Potassium 3.4 L Chloride 109.2 H Carbon Dioxide 19 L BUN 27 H Creatinine Glucose 124 H POC Glucose 125 H 148 H Lactic Acid Calcium Ionized Calcium Phosphorus Magnesium Total Bilirubin AST ALT Alkaline Phosphatase Ammonia Total Creatine Kinase CK-MB (CK-2) CK-MB (CK-2) Rel Index Total Protein Albumin Urine WBC (Auto) Vancomycin Trough Salicylates Acetaminophen Plasma/Serum Alcohol Crossmatch 12/16/19 12/17/19 12/17/19 23:43 05:28 12:47 WBC RBC Hgb Hct MCH RDW Plt Count Lymph % (Auto) [place] % (Auto) [place] # Baso # Seg Neutrophils % Seg Neuts % (Manual) Lymphocytes % (Manual) Monocytes % (Manual) Seg Neutrophils # Seg Neutrophils # Man Lymphocytes # (Manual) Monocytes # (Manual) Eosinophils # (Manual) Basophils # (Manual) PT INR APTT ABG pH ABG pO2 ABG HCO3 ABG O2 Saturation ABG Base Excess ABG Hemoglobin Oxyhemoglobin Sodium Potassium Chloride Carbon Dioxide BUN Creatinine Glucose POC Glucose 142 H 140 H 125 H Lactic Acid Calcium Ionized Calcium Phosphorus Magnesium Total Bilirubin AST ALT Alkaline Phosphatase Ammonia Total Creatine Kinase CK-MB (CK-2) CK-MB (CK-2) Rel Index Total Protein Albumin Urine WBC (Auto) Vancomycin Trough Salicylates Acetaminophen Plasma/Serum Alcohol Crossmatch 12/17/19 12/17/19 12/17/19 17:05 18:00 Unknown WBC RBC Hgb Hct MCH RDW Plt Count Lymph % (Auto) [place] % (Auto) [place] # Baso # Seg Neutrophils % Seg Neuts % (Manual) Lymphocytes % (Manual) Monocytes % (Manual) Seg Neutrophils # Seg Neutrophils # Man Lymphocytes # (Manual) Monocytes # (Manual) Eosinophils # (Manual) Basophils # (Manual) PT INR APTT ABG pH ABG pO2 68.1 L ABG HCO3 ABG O2 Saturation 93.7 L ABG Base Excess ABG Hemoglobin 5.0 L Oxyhemoglobin 91.7 L Sodium Potassium Chloride Carbon Dioxide BUN Creatinine Glucose POC Glucose 140 H Lactic Acid Calcium Ionized Calcium Phosphorus Magnesium Total Bilirubin AST ALT Alkaline Phosphatase Ammonia Total Creatine Kinase CK-MB (CK-2) CK-MB (CK-2) Rel Index Total Protein Albumin Urine WBC (Auto) Vancomycin Trough Salicylates Acetaminophen Plasma/Serum Alcohol Crossmatch 12/18/19 12/18/19 12/18/19 00:16 04:53 04:53 WBC 28.6 H RBC 2.27 L Hgb 6.3 L Hct 19.5 L* MCH RDW 20.0 H Plt Count 497 H Lymph % (Auto) [place] % (Auto) [place] # Baso # Seg Neutrophils % Seg Neuts % (Manual) Lymphocytes % (Manual) Monocytes % (Manual) Seg Neutrophils # Seg Neutrophils # Man Lymphocytes # (Manual) Monocytes # (Manual) Eosinophils # (Manual) Basophils # (Manual) PT INR APTT ABG pH ABG pO2 ABG HCO3 ABG O2 Saturation ABG Base Excess ABG Hemoglobin Oxyhemoglobin Sodium Potassium Chloride 107.9 H Carbon Dioxide 20 L BUN 27 H Creatinine 0.6 L Glucose 116 H POC Glucose 123 H Lactic Acid Calcium Ionized Calcium Phosphorus Magnesium Total Bilirubin AST ALT Alkaline Phosphatase Ammonia Total Creatine Kinase CK-MB (CK-2) CK-MB (CK-2) Rel Index Total Protein Albumin Urine WBC (Auto) Vancomycin Trough Salicylates Acetaminophen Plasma/Serum Alcohol Crossmatch 12/18/19 12/18/19 12/18/19 06:38 11:22 12:08 WBC RBC Hgb Hct MCH RDW Plt Count Lymph % (Auto) [place] % (Auto) [place] # Baso # Seg Neutrophils % Seg Neuts % (Manual) Lymphocytes % (Manual) Monocytes % (Manual) Seg Neutrophils # Seg Neutrophils # Man Lymphocytes # (Manual) Monocytes # (Manual) Eosinophils # (Manual) Basophils # (Manual) PT INR APTT ABG pH ABG pO2 ABG HCO3 ABG O2 Saturation ABG Base Excess ABG Hemoglobin Oxyhemoglobin Sodium Potassium Chloride Carbon Dioxide BUN Creatinine Glucose POC Glucose 120 H 127 H Lactic Acid Calcium Ionized Calcium Phosphorus Magnesium Total Bilirubin AST ALT Alkaline Phosphatase Ammonia Total Creatine Kinase CK-MB (CK-2) CK-MB (CK-2) Rel Index Total Protein Albumin Urine WBC (Auto) Vancomycin Trough Salicylates Acetaminophen Plasma/Serum Alcohol Crossmatch See Detail 12/18/19 12/18/19 12/18/19 14:05 17:49 23:53 WBC RBC Hgb Hct MCH RDW Plt Count Lymph % (Auto) [place] % (Auto) [place] # Baso # Seg Neutrophils % Seg Neuts % (Manual) Lymphocytes % (Manual) Monocytes % (Manual) Seg Neutrophils # Seg Neutrophils # Man Lymphocytes # (Manual) Monocytes # (Manual) Eosinophils # (Manual) Basophils # (Manual) PT INR APTT ABG pH 7.267 L ABG pO2 69.8 L ABG HCO3 ABG O2 Saturation 88.4 L ABG Base Excess ABG Hemoglobin 7.1 L Oxyhemoglobin 86.4 L Sodium Potassium Chloride Carbon Dioxide BUN Creatinine Glucose POC Glucose 157 H 128 H Lactic Acid Calcium Ionized Calcium Phosphorus Magnesium Total Bilirubin AST ALT Alkaline Phosphatase Ammonia Total Creatine Kinase CK-MB (CK-2) CK-MB (CK-2) Rel Index Total Protein Albumin Urine WBC (Auto) Vancomycin Trough Salicylates Acetaminophen Plasma/Serum Alcohol Crossmatch 12/19/19 12/19/19 12/19/19 03:37 03:37 05:25 WBC 31.3 H RBC 2.60 L Hgb 7.6 L Hct 23.0 L MCH RDW 19.4 H Plt Count 530 H Lymph % (Auto) [place] % (Auto) [place] # Baso # Seg Neutrophils % Seg Neuts % (Manual) Lymphocytes % (Manual) Monocytes % (Manual) Seg Neutrophils # Seg Neutrophils # Man Lymphocytes # (Manual) Monocytes # (Manual) Eosinophils # (Manual) Basophils # (Manual) PT INR APTT ABG pH ABG pO2 ABG HCO3 ABG O2 Saturation ABG Base Excess ABG Hemoglobin Oxyhemoglobin Sodium Potassium Chloride Carbon Dioxide 18 L BUN 36 H Creatinine Glucose 111 H POC Glucose 123 H Lactic Acid Calcium Ionized Calcium Phosphorus Magnesium Total Bilirubin AST ALT Alkaline Phosphatase Ammonia Total Creatine Kinase CK-MB (CK-2) CK-MB (CK-2) Rel Index Total Protein Albumin Urine WBC (Auto) Vancomycin Trough Salicylates Acetaminophen Plasma/Serum Alcohol Crossmatch 12/19/19 12/19/19 12/20/19 12:59 18:33 00:00 WBC RBC Hgb Hct MCH RDW Plt Count Lymph % (Auto) [place] % (Auto) [place] # Baso # Seg Neutrophils % Seg Neuts % (Manual) Lymphocytes % (Manual) Monocytes % (Manual) Seg Neutrophils # Seg Neutrophils # Man Lymphocytes # (Manual) Monocytes # (Manual) Eosinophils # (Manual) Basophils # (Manual) PT INR APTT ABG pH ABG pO2 ABG HCO3 ABG O2 Saturation ABG Base Excess ABG Hemoglobin Oxyhemoglobin Sodium Potassium Chloride Carbon Dioxide BUN Creatinine Glucose POC Glucose 130 H 118 H 135 H Lactic Acid Calcium Ionized Calcium Phosphorus Magnesium Total Bilirubin AST ALT Alkaline Phosphatase Ammonia Total Creatine Kinase CK-MB (CK-2) CK-MB (CK-2) Rel Index Total Protein Albumin Urine WBC (Auto) Vancomycin Trough Salicylates Acetaminophen Plasma/Serum Alcohol Crossmatch 12/20/19 12/20/19 12/20/19 05:46 12:31 18:07 WBC RBC Hgb Hct MCH RDW Plt Count Lymph % (Auto) [place] % (Auto) [place] # Baso # Seg Neutrophils % Seg Neuts % (Manual) Lymphocytes % (Manual) Monocytes % (Manual) Seg Neutrophils # Seg Neutrophils # Man Lymphocytes # (Manual) Monocytes # (Manual) Eosinophils # (Manual) Basophils # (Manual) PT INR APTT ABG pH ABG pO2 ABG HCO3 ABG O2 Saturation ABG Base Excess ABG Hemoglobin Oxyhemoglobin Sodium Potassium Chloride Carbon Dioxide BUN Creatinine Glucose POC Glucose 131 H 128 H 134 H Lactic Acid Calcium Ionized Calcium Phosphorus Magnesium Total Bilirubin AST ALT Alkaline Phosphatase Ammonia Total Creatine Kinase CK-MB (CK-2) CK-MB (CK-2) Rel Index Total Protein Albumin Urine WBC (Auto) Vancomycin Trough Salicylates Acetaminophen Plasma/Serum Alcohol Crossmatch 12/21/19 12/21/19 12/21/19 03:28 03:28 07:21 WBC 29.4 H RBC 2.30 L Hgb 6.8 L Hct 20.2 L MCH RDW 20.2 H Plt Count 746 H Lymph % (Auto) [place] % (Auto) [place] # Baso # Seg Neutrophils % Seg Neuts % (Manual) 85.0 H Lymphocytes % (Manual) 8.0 L Monocytes % (Manual) Seg Neutrophils # Seg Neutrophils # Man 25.0 H Lymphocytes # (Manual) Monocytes # (Manual) 1.5 H Eosinophils # (Manual) 0.6 H Basophils # (Manual) PT INR APTT ABG pH ABG pO2 ABG HCO3 ABG O2 Saturation ABG Base Excess ABG Hemoglobin Oxyhemoglobin Sodium Potassium Chloride Carbon Dioxide 17 L BUN 57 H Creatinine 1.4 H D Glucose POC Glucose 124 H Lactic Acid Calcium Ionized Calcium Phosphorus Magnesium Total Bilirubin AST ALT Alkaline Phosphatase Ammonia Total Creatine Kinase CK-MB (CK-2) CK-MB (CK-2) Rel Index Total Protein Albumin Urine WBC (Auto) Vancomycin Trough Salicylates Acetaminophen Plasma/Serum Alcohol Crossmatch 12/21/19 12/21/19 12/21/19 08:56 12:06 14:53 WBC RBC Hgb 7.2 L Hct 22.9 L MCH RDW Plt Count Lymph % (Auto) [place] % (Auto) [place] # Baso # Seg Neutrophils % Seg Neuts % (Manual) Lymphocytes % (Manual) Monocytes % (Manual) Seg Neutrophils # Seg Neutrophils # Man Lymphocytes # (Manual) Monocytes # (Manual) Eosinophils # (Manual) Basophils # (Manual) PT INR APTT ABG pH ABG pO2 ABG HCO3 ABG O2 Saturation ABG Base Excess ABG Hemoglobin Oxyhemoglobin Sodium Potassium Chloride Carbon Dioxide BUN Creatinine Glucose POC Glucose 116 H Lactic Acid Calcium Ionized Calcium Phosphorus Magnesium Total Bilirubin AST ALT Alkaline Phosphatase Ammonia Total Creatine Kinase CK-MB (CK-2) CK-MB (CK-2) Rel Index Total Protein Albumin Urine WBC (Auto) Vancomycin Trough 33.8 H Salicylates Acetaminophen Plasma/Serum Alcohol Crossmatch 12/21/19 12/21/19 12/21/19 14:54 17:27 23:49 WBC RBC Hgb Hct MCH RDW Plt Count Lymph % (Auto) [place] % (Auto) [place] # Baso # Seg Neutrophils % Seg Neuts % (Manual) Lymphocytes % (Manual) Monocytes % (Manual) Seg Neutrophils # Seg Neutrophils # Man Lymphocytes # (Manual) Monocytes # (Manual) Eosinophils # (Manual) Basophils # (Manual) PT INR APTT ABG pH ABG pO2 ABG HCO3 ABG O2 Saturation ABG Base Excess ABG Hemoglobin Oxyhemoglobin Sodium Potassium Chloride Carbon Dioxide BUN Creatinine Glucose POC Glucose 145 H 127 H Lactic Acid Calcium Ionized Calcium Phosphorus Magnesium Total Bilirubin AST ALT Alkaline Phosphatase Ammonia Total Creatine Kinase CK-MB (CK-2) CK-MB (CK-2) Rel Index Total Protein Albumin Urine WBC (Auto) Vancomycin Trough Salicylates Acetaminophen Plasma/Serum Alcohol Crossmatch See Detail 12/22/19 12/22/19 12/22/19 04:43 05:56 08:40 WBC RBC Hgb Hct MCH RDW Plt Count Lymph % (Auto) [place] % (Auto) [place] # Baso # Seg Neutrophils % Seg Neuts % (Manual) Lymphocytes % (Manual) Monocytes % (Manual) Seg Neutrophils # Seg Neutrophils # Man Lymphocytes # (Manual) Monocytes # (Manual) Eosinophils # (Manual) Basophils # (Manual) PT INR APTT ABG pH ABG pO2 75.6 L ABG HCO3 ABG O2 Saturation ABG Base Excess -2.6 L ABG Hemoglobin 6.8 L Oxyhemoglobin 94.6 L Sodium Potassium Chloride Carbon Dioxide 17 L BUN 60 H Creatinine 1.4 H Glucose 126 H POC Glucose 153 H Lactic Acid Calcium Ionized Calcium Phosphorus Magnesium Total Bilirubin AST ALT Alkaline Phosphatase Ammonia Total Creatine Kinase CK-MB (CK-2) CK-MB (CK-2) Rel Index Total Protein Albumin Urine WBC (Auto) Vancomycin Trough Salicylates Acetaminophen Plasma/Serum Alcohol Crossmatch 12/22/19 12/22/19 12/23/19 12:07 17:49 04:30 WBC 22.4 H RBC 2.68 L Hgb 7.6 L Hct 22.9 L MCH RDW 19.9 H Plt Count 998 H Lymph % (Auto) [place] % (Auto) [place] # Baso # Seg Neutrophils % Seg Neuts % (Manual) 88.0 H Lymphocytes % (Manual) 2.0 L Monocytes % (Manual) 9.0 H Seg Neutrophils # Seg Neutrophils # Man 19.7 H Lymphocytes # (Manual) 0.4 L Monocytes # (Manual) 2.0 H Eosinophils # (Manual) Basophils # (Manual) PT INR APTT ABG pH ABG pO2 ABG HCO3 ABG O2 Saturation ABG Base Excess ABG Hemoglobin Oxyhemoglobin Sodium Potassium Chloride Carbon Dioxide BUN Creatinine Glucose POC Glucose 140 H 116 H Lactic Acid Calcium Ionized Calcium Phosphorus Magnesium Total Bilirubin AST ALT Alkaline Phosphatase Ammonia Total Creatine Kinase CK-MB (CK-2) CK-MB (CK-2) Rel Index Total Protein Albumin Urine WBC (Auto) Vancomycin Trough Salicylates Acetaminophen Plasma/Serum Alcohol Crossmatch 12/23/19 12/23/19 12/23/19 04:30 12:00 18:06 WBC RBC Hgb Hct MCH RDW Plt Count Lymph % (Auto) [place] % (Auto) [place] # Baso # Seg Neutrophils % Seg Neuts % (Manual) Lymphocytes % (Manual) Monocytes % (Manual) Seg Neutrophils # Seg Neutrophils # Man Lymphocytes # (Manual) Monocytes # (Manual) Eosinophils # (Manual) Basophils # (Manual) PT INR APTT ABG pH ABG pO2 ABG HCO3 ABG O2 Saturation ABG Base Excess ABG Hemoglobin Oxyhemoglobin Sodium Potassium 5.2 H Chloride Carbon Dioxide 21 L BUN 69 H Creatinine 1.5 H Glucose 117 H POC Glucose 128 H 138 H Lactic Acid Calcium Ionized Calcium Phosphorus Magnesium Total Bilirubin AST ALT Alkaline Phosphatase Ammonia Total Creatine Kinase CK-MB (CK-2) CK-MB (CK-2) Rel Index Total Protein Albumin Urine WBC (Auto) Vancomycin Trough Salicylates Acetaminophen Plasma/Serum Alcohol Crossmatch 12/23/19 12/24/19 12/24/19 23:46 04:31 05:08 WBC RBC Hgb Hct MCH RDW Plt Count Lymph % (Auto) [place] % (Auto) [place] # Baso # Seg Neutrophils % Seg Neuts % (Manual) Lymphocytes % (Manual) Monocytes % (Manual) Seg Neutrophils # Seg Neutrophils # Man Lymphocytes # (Manual) Monocytes # (Manual) Eosinophils # (Manual) Basophils # (Manual) PT INR APTT ABG pH ABG pO2 ABG HCO3 ABG O2 Saturation ABG Base Excess ABG Hemoglobin Oxyhemoglobin Sodium Potassium 5.3 H Chloride 107.6 H Carbon Dioxide 20 L BUN 72 H Creatinine 1.6 H Glucose 120 H POC Glucose 120 H 140 H Lactic Acid Calcium Ionized Calcium Phosphorus Magnesium Total Bilirubin AST ALT Alkaline Phosphatase Ammonia Total Creatine Kinase CK-MB (CK-2) CK-MB (CK-2) Rel Index Total Protein Albumin Urine WBC (Auto) Vancomycin Trough Salicylates Acetaminophen Plasma/Serum Alcohol Crossmatch 12/24/19 12/24/19 12/25/19 11:58 17:49 03:47 WBC 36.2 H RBC 2.92 L Hgb 8.4 L Hct 26.1 L MCH RDW 20.2 H Plt Count 942 H Lymph % (Auto) [place] % (Auto) [place] # Baso # Seg Neutrophils % Seg Neuts % (Manual) 97.5 H Lymphocytes % (Manual) 1.0 L Monocytes % (Manual) Seg Neutrophils # Seg Neutrophils # Man 35.3 H Lymphocytes # (Manual) 0.4 L Monocytes # (Manual) Eosinophils # (Manual) Basophils # (Manual) PT INR APTT ABG pH ABG pO2 ABG HCO3 ABG O2 Saturation ABG Base Excess ABG Hemoglobin Oxyhemoglobin Sodium Potassium Chloride Carbon Dioxide BUN Creatinine Glucose POC Glucose 146 H 131 H Lactic Acid Calcium Ionized Calcium Phosphorus Magnesium Total Bilirubin AST ALT Alkaline Phosphatase Ammonia Total Creatine Kinase CK-MB (CK-2) CK-MB (CK-2) Rel Index Total Protein Albumin Urine WBC (Auto) Vancomycin Trough Salicylates Acetaminophen Plasma/Serum Alcohol Crossmatch 12/25/19 12/25/19 12/25/19 03:47 05:30 12:23 WBC RBC Hgb Hct MCH RDW Plt Count Lymph % (Auto) [place] % (Auto) [place] # Baso # Seg Neutrophils % Seg Neuts % (Manual) Lymphocytes % (Manual) Monocytes % (Manual) Seg Neutrophils # Seg Neutrophils # Man Lymphocytes # (Manual) Monocytes # (Manual) Eosinophils # (Manual) Basophils # (Manual) PT INR APTT ABG pH ABG pO2 ABG HCO3 ABG O2 Saturation ABG Base Excess ABG Hemoglobin Oxyhemoglobin Sodium Potassium Chloride Carbon Dioxide 15 L BUN 70 H Creatinine 1.7 H Glucose 153 H POC Glucose 169 H 135 H Lactic Acid Calcium Ionized Calcium Phosphorus Magnesium Total Bilirubin AST ALT Alkaline Phosphatase Ammonia Total Creatine Kinase CK-MB (CK-2) CK-MB (CK-2) Rel Index Total Protein Albumin Urine WBC (Auto) Vancomycin Trough Salicylates Acetaminophen Plasma/Serum Alcohol Crossmatch 12/25/19 12/25/19 12/26/19 17:37 23:29 09:47 WBC 22.1 H RBC 2.83 L Hgb 7.9 L Hct 25.5 L MCH RDW 20.0 H Plt Count 894 H Lymph % (Auto) [place] % (Auto) [place] # Baso # Seg Neutrophils % Seg Neuts % (Manual) Lymphocytes % (Manual) Monocytes % (Manual) Seg Neutrophils # Seg Neutrophils # Man Lymphocytes # (Manual) Monocytes # (Manual) Eosinophils # (Manual) Basophils # (Manual) PT INR APTT ABG pH ABG pO2 ABG HCO3 ABG O2 Saturation ABG Base Excess ABG Hemoglobin Oxyhemoglobin Sodium Potassium Chloride Carbon Dioxide BUN Creatinine Glucose POC Glucose 120 H 140 H Lactic Acid Calcium Ionized Calcium Phosphorus Magnesium Total Bilirubin AST ALT Alkaline Phosphatase Ammonia Total Creatine Kinase CK-MB (CK-2) CK-MB (CK-2) Rel Index Total Protein Albumin Urine WBC (Auto) Vancomycin Trough Salicylates Acetaminophen Plasma/Serum Alcohol Crossmatch 12/26/19 12/26/19 12/26/19 09:47 11:46 17:52 WBC RBC Hgb Hct MCH RDW Plt Count Lymph % (Auto) [place] % (Auto) [place] # Baso # Seg Neutrophils % Seg Neuts % (Manual) Lymphocytes % (Manual) Monocytes % (Manual) Seg Neutrophils # Seg Neutrophils # Man Lymphocytes # (Manual) Monocytes # (Manual) Eosinophils # (Manual) Basophils # (Manual) PT INR APTT ABG pH ABG pO2 ABG HCO3 ABG O2 Saturation ABG Base Excess ABG Hemoglobin Oxyhemoglobin Sodium Potassium Chloride Carbon Dioxide 18 L BUN 65 H Creatinine 1.4 H Glucose 132 H POC Glucose 110 H 145 H Lactic Acid Calcium Ionized Calcium Phosphorus Magnesium Total Bilirubin AST ALT Alkaline Phosphatase Ammonia Total Creatine Kinase CK-MB (CK-2) CK-MB (CK-2) Rel Index Total Protein Albumin Urine WBC (Auto) Vancomycin Trough Salicylates Acetaminophen Plasma/Serum Alcohol Crossmatch 12/27/19 12/27/19 12/27/19 00:01 03:42 03:42 WBC 18.0 H RBC 2.86 L Hgb 8.0 L Hct 25.2 L MCH RDW 19.2 H Plt Count 873 H Lymph % (Auto) 8.4 L [place] % (Auto) 7.5 H [place] # 1.4 H Baso # 0.2 H Seg Neutrophils % 82.2 H Seg Neuts % (Manual) Lymphocytes % (Manual) Monocytes % (Manual) Seg Neutrophils # 14.8 H Seg Neutrophils # Man Lymphocytes # (Manual) Monocytes # (Manual) Eosinophils # (Manual) Basophils # (Manual) PT INR APTT ABG pH ABG pO2 ABG HCO3 ABG O2 Saturation ABG Base Excess ABG Hemoglobin Oxyhemoglobin Sodium Potassium Chloride Carbon Dioxide BUN 73 H Creatinine 1.4 H Glucose 119 H POC Glucose 124 H Lactic Acid Calcium Ionized Calcium Phosphorus Magnesium Total Bilirubin AST ALT Alkaline Phosphatase Ammonia Total Creatine Kinase CK-MB (CK-2) CK-MB (CK-2) Rel Index Total Protein Albumin Urine WBC (Auto) Vancomycin Trough Salicylates Acetaminophen Plasma/Serum Alcohol Crossmatch 12/27/19 12/27/19 12/27/19 05:45 11:45 17:29 WBC RBC Hgb Hct MCH RDW Plt Count Lymph % (Auto) [place] % (Auto) [place] # Baso # Seg Neutrophils % Seg Neuts % (Manual) Lymphocytes % (Manual) Monocytes % (Manual) Seg Neutrophils # Seg Neutrophils # Man Lymphocytes # (Manual) Monocytes # (Manual) Eosinophils # (Manual) Basophils # (Manual) PT INR APTT ABG pH ABG pO2 ABG HCO3 ABG O2 Saturation ABG Base Excess ABG Hemoglobin Oxyhemoglobin Sodium Potassium Chloride Carbon Dioxide BUN Creatinine Glucose POC Glucose 131 H 123 H 134 H Lactic Acid Calcium Ionized Calcium Phosphorus Magnesium Total Bilirubin AST ALT Alkaline Phosphatase Ammonia Total Creatine Kinase CK-MB (CK-2) CK-MB (CK-2) Rel Index Total Protein Albumin Urine WBC (Auto) Vancomycin Trough Salicylates Acetaminophen Plasma/Serum Alcohol Crossmatch 12/28/19 12/28/19 12/28/19 00:12 05:14 11:53 WBC RBC Hgb Hct MCH RDW Plt Count Lymph % (Auto) [place] % (Auto) [place] # Baso # Seg Neutrophils % Seg Neuts % (Manual) Lymphocytes % (Manual) Monocytes % (Manual) Seg Neutrophils # Seg Neutrophils # Man Lymphocytes # (Manual) Monocytes # (Manual) Eosinophils # (Manual) Basophils # (Manual) PT INR APTT ABG pH ABG pO2 ABG HCO3 ABG O2 Saturation ABG Base Excess ABG Hemoglobin Oxyhemoglobin Sodium Potassium Chloride Carbon Dioxide BUN Creatinine Glucose POC Glucose 138 H 130 H 146 H Lactic Acid Calcium Ionized Calcium Phosphorus Magnesium Total Bilirubin AST ALT Alkaline Phosphatase Ammonia Total Creatine Kinase CK-MB (CK-2) CK-MB (CK-2) Rel Index Total Protein Albumin Urine WBC (Auto) Vancomycin Trough Salicylates Acetaminophen Plasma/Serum Alcohol Crossmatch 12/28/19 12/29/19 12/29/19 17:39 00:01 18:11 WBC RBC Hgb Hct MCH RDW Plt Count Lymph % (Auto) [place] % (Auto) [place] # Baso # Seg Neutrophils % Seg Neuts % (Manual) Lymphocytes % (Manual) Monocytes % (Manual) Seg Neutrophils # Seg Neutrophils # Man Lymphocytes # (Manual) Monocytes # (Manual) Eosinophils # (Manual) Basophils # (Manual) PT INR APTT ABG pH ABG pO2 ABG HCO3 ABG O2 Saturation ABG Base Excess ABG Hemoglobin Oxyhemoglobin Sodium Potassium Chloride Carbon Dioxide BUN Creatinine Glucose POC Glucose 117 H 139 H 130 H Lactic Acid Calcium Ionized Calcium Phosphorus Magnesium Total Bilirubin AST ALT Alkaline Phosphatase Ammonia Total Creatine Kinase CK-MB (CK-2) CK-MB (CK-2) Rel Index Total Protein Albumin Urine WBC (Auto) Vancomycin Trough Salicylates Acetaminophen Plasma/Serum Alcohol Crossmatch 12/29/19 12/30/19 12/30/19 23:09 00:02 01:06 WBC 16.7 H RBC 2.91 L Hgb 8.2 L Hct 25.4 L MCH RDW 18.7 H Plt Count 708 H Lymph % (Auto) 9.4 L [place] % (Auto) [place] # 0.9 H Baso # Seg Neutrophils % 83.5 H Seg Neuts % (Manual) Lymphocytes % (Manual) Monocytes % (Manual) Seg Neutrophils # 14.0 H Seg Neutrophils # Man Lymphocytes # (Manual) Monocytes # (Manual) Eosinophils # (Manual) Basophils # (Manual) PT INR APTT ABG pH ABG pO2 ABG HCO3 ABG O2 Saturation ABG Base Excess ABG Hemoglobin Oxyhemoglobin Sodium Potassium Chloride Carbon Dioxide BUN Creatinine Glucose POC Glucose 120 H 114 H Lactic Acid Calcium Ionized Calcium Phosphorus Magnesium Total Bilirubin AST ALT Alkaline Phosphatase Ammonia Total Creatine Kinase CK-MB (CK-2) CK-MB (CK-2) Rel Index Total Protein Albumin Urine WBC (Auto) Vancomycin Trough Salicylates Acetaminophen Plasma/Serum Alcohol Crossmatch 12/30/19 12/30/19 12/30/19 01:06 04:23 05:18 WBC RBC Hgb Hct MCH RDW Plt Count Lymph % (Auto) [place] % (Auto) [place] # Baso # Seg Neutrophils % Seg Neuts % (Manual) Lymphocytes % (Manual) Monocytes % (Manual) Seg Neutrophils # Seg Neutrophils # Man Lymphocytes # (Manual) Monocytes # (Manual) Eosinophils # (Manual) Basophils # (Manual) PT INR APTT ABG pH ABG pO2 ABG HCO3 ABG O2 Saturation ABG Base Excess ABG Hemoglobin 8.3 L Oxyhemoglobin Sodium Potassium Chloride Carbon Dioxide BUN 70 H Creatinine Glucose 122 H POC Glucose 130 H Lactic Acid Calcium Ionized Calcium Phosphorus Magnesium Total Bilirubin AST ALT Alkaline Phosphatase Ammonia Total Creatine Kinase CK-MB (CK-2) CK-MB (CK-2) Rel Index Total Protein Albumin Urine WBC (Auto) Vancomycin Trough Salicylates Acetaminophen Plasma/Serum Alcohol Crossmatch 12/30/19 12/30/19 12/30/19 05:40 12:17 17:43 WBC RBC Hgb Hct MCH RDW Plt Count Lymph % (Auto) [place] % (Auto) [place] # Baso # Seg Neutrophils % Seg Neuts % (Manual) Lymphocytes % (Manual) Monocytes % (Manual) Seg Neutrophils # Seg Neutrophils # Man Lymphocytes # (Manual) Monocytes # (Manual) Eosinophils # (Manual) Basophils # (Manual) PT INR APTT ABG pH ABG pO2 ABG HCO3 ABG O2 Saturation ABG Base Excess ABG Hemoglobin Oxyhemoglobin Sodium Potassium Chloride Carbon Dioxide BUN Creatinine Glucose POC Glucose 135 H 132 H 118 H Lactic Acid Calcium Ionized Calcium Phosphorus Magnesium Total Bilirubin AST ALT Alkaline Phosphatase Ammonia Total Creatine Kinase CK-MB (CK-2) CK-MB (CK-2) Rel Index Total Protein Albumin Urine WBC (Auto) Vancomycin Trough Salicylates Acetaminophen Plasma/Serum Alcohol Crossmatch 12/30/19 12/31/19 12/31/19 23:29 05:19 17:50 WBC RBC Hgb Hct MCH RDW Plt Count Lymph % (Auto) [place] % (Auto) [place] # Baso # Seg Neutrophils % Seg Neuts % (Manual) Lymphocytes % (Manual) Monocytes % (Manual) Seg Neutrophils # Seg Neutrophils # Man Lymphocytes # (Manual) Monocytes # (Manual) Eosinophils # (Manual) Basophils # (Manual) PT INR APTT ABG pH ABG pO2 ABG HCO3 ABG O2 Saturation ABG Base Excess ABG Hemoglobin Oxyhemoglobin Sodium Potassium Chloride Carbon Dioxide BUN Creatinine Glucose POC Glucose 114 H 109 H 116 H Lactic Acid Calcium Ionized Calcium Phosphorus Magnesium Total Bilirubin AST ALT Alkaline Phosphatase Ammonia Total Creatine Kinase CK-MB (CK-2) CK-MB (CK-2) Rel Index Total Protein Albumin Urine WBC (Auto) Vancomycin Trough Salicylates Acetaminophen Plasma/Serum Alcohol Crossmatch 01/01/20 01/01/20 01/01/20 00:10 05:19 12:02 WBC RBC Hgb Hct MCH RDW Plt Count Lymph % (Auto) [place] % (Auto) [place] # Baso # Seg Neutrophils % Seg Neuts % (Manual) Lymphocytes % (Manual) Monocytes % (Manual) Seg Neutrophils # Seg Neutrophils # Man Lymphocytes # (Manual) Monocytes # (Manual) Eosinophils # (Manual) Basophils # (Manual) PT INR APTT ABG pH ABG pO2 ABG HCO3 ABG O2 Saturation ABG Base Excess ABG Hemoglobin Oxyhemoglobin Sodium Potassium Chloride Carbon Dioxide BUN Creatinine Glucose POC Glucose 131 H 122 H 136 H Lactic Acid Calcium Ionized Calcium Phosphorus Magnesium Total Bilirubin AST ALT Alkaline Phosphatase Ammonia Total Creatine Kinase CK-MB (CK-2) CK-MB (CK-2) Rel Index Total Protein Albumin Urine WBC (Auto) Vancomycin Trough Salicylates Acetaminophen Plasma/Serum Alcohol Crossmatch 01/02/20 01/02/20 01/02/20 00:24 05:36 11:41 WBC RBC Hgb Hct MCH RDW Plt Count Lymph % (Auto) [place] % (Auto) [place] # Baso # Seg Neutrophils % Seg Neuts % (Manual) Lymphocytes % (Manual) Monocytes % (Manual) Seg Neutrophils # Seg Neutrophils # Man Lymphocytes # (Manual) Monocytes # (Manual) Eosinophils # (Manual) Basophils # (Manual) PT INR APTT ABG pH ABG pO2 ABG HCO3 ABG O2 Saturation ABG Base Excess ABG Hemoglobin Oxyhemoglobin Sodium Potassium Chloride Carbon Dioxide BUN Creatinine Glucose POC Glucose 119 H 109 H 125 H Lactic Acid Calcium Ionized Calcium Phosphorus Magnesium Total Bilirubin AST ALT Alkaline Phosphatase Ammonia Total Creatine Kinase CK-MB (CK-2) CK-MB (CK-2) Rel Index Total Protein Albumin Urine WBC (Auto) Vancomycin Trough Salicylates Acetaminophen Plasma/Serum Alcohol Crossmatch 01/02/20 01/03/20 01/03/20 17:49 05:29 12:13 WBC RBC Hgb Hct MCH RDW Plt Count Lymph % (Auto) [place] % (Auto) [place] # Baso # Seg Neutrophils % Seg Neuts % (Manual) Lymphocytes % (Manual) Monocytes % (Manual) Seg Neutrophils # Seg Neutrophils # Man Lymphocytes # (Manual) Monocytes # (Manual) Eosinophils # (Manual) Basophils # (Manual) PT INR APTT ABG pH ABG pO2 ABG HCO3 ABG O2 Saturation ABG Base Excess ABG Hemoglobin Oxyhemoglobin Sodium Potassium Chloride Carbon Dioxide BUN Creatinine Glucose POC Glucose 130 H 132 H 113 H Lactic Acid Calcium Ionized Calcium Phosphorus Magnesium Total Bilirubin AST ALT Alkaline Phosphatase Ammonia Total Creatine Kinase CK-MB (CK-2) CK-MB (CK-2) Rel Index Total Protein Albumin Urine WBC (Auto) Vancomycin Trough Salicylates Acetaminophen Plasma/Serum Alcohol Crossmatch 01/03/20 01/04/20 01/04/20 17:32 00:19 05:26 WBC RBC Hgb Hct MCH RDW Plt Count Lymph % (Auto) [place] % (Auto) [place] # Baso # Seg Neutrophils % Seg Neuts % (Manual) Lymphocytes % (Manual) Monocytes % (Manual) Seg Neutrophils # Seg Neutrophils # Man Lymphocytes # (Manual) Monocytes # (Manual) Eosinophils # (Manual) Basophils # (Manual) PT INR APTT ABG pH ABG pO2 ABG HCO3 ABG O2 Saturation ABG Base Excess ABG Hemoglobin Oxyhemoglobin Sodium Potassium Chloride Carbon Dioxide BUN Creatinine Glucose POC Glucose 127 H 141 H 129 H Lactic Acid Calcium Ionized Calcium Phosphorus Magnesium Total Bilirubin AST ALT Alkaline Phosphatase Ammonia Total Creatine Kinase CK-MB (CK-2) CK-MB (CK-2) Rel Index Total Protein Albumin Urine WBC (Auto) Vancomycin Trough Salicylates Acetaminophen Plasma/Serum Alcohol Crossmatch 01/04/20 01/04/20 01/05/20 11:39 17:29 05:22 WBC RBC Hgb Hct MCH RDW Plt Count Lymph % (Auto) [place] % (Auto) [place] # Baso # Seg Neutrophils % Seg Neuts % (Manual) Lymphocytes % (Manual) Monocytes % (Manual) Seg Neutrophils # Seg Neutrophils # Man Lymphocytes # (Manual) Monocytes # (Manual) Eosinophils # (Manual) Basophils # (Manual) PT INR APTT ABG pH ABG pO2 ABG HCO3 ABG O2 Saturation ABG Base Excess ABG Hemoglobin Oxyhemoglobin Sodium Potassium Chloride Carbon Dioxide BUN Creatinine Glucose POC Glucose 167 H 132 H 121 H Lactic Acid Calcium Ionized Calcium Phosphorus Magnesium Total Bilirubin AST ALT Alkaline Phosphatase Ammonia Total Creatine Kinase CK-MB (CK-2) CK-MB (CK-2) Rel Index Total Protein Albumin Urine WBC (Auto) Vancomycin Trough Salicylates Acetaminophen Plasma/Serum Alcohol Crossmatch 01/05/20 01/05/20 01/05/20 12:25 17:40 18:06 WBC RBC Hgb Hct MCH RDW Plt Count Lymph % (Auto) [place] % (Auto) [place] # Baso # Seg Neutrophils % Seg Neuts % (Manual) Lymphocytes % (Manual) Monocytes % (Manual) Seg Neutrophils # Seg Neutrophils # Man Lymphocytes # (Manual) Monocytes # (Manual) Eosinophils # (Manual) Basophils # (Manual) PT INR APTT ABG pH 7.472 H ABG pO2 99.2 H ABG HCO3 ABG O2 Saturation ABG Base Excess ABG Hemoglobin 7.8 L Oxyhemoglobin Sodium Potassium Chloride Carbon Dioxide BUN Creatinine Glucose POC Glucose 106 H 110 H Lactic Acid Calcium Ionized Calcium Phosphorus Magnesium Total Bilirubin AST ALT Alkaline Phosphatase Ammonia Total Creatine Kinase CK-MB (CK-2) CK-MB (CK-2) Rel Index Total Protein Albumin Urine WBC (Auto) Vancomycin Trough Salicylates Acetaminophen Plasma/Serum Alcohol Crossmatch 01/06/20 01/06/20 01/06/20 00:11 05:16 11:30 WBC RBC Hgb Hct MCH RDW Plt Count Lymph % (Auto) [place] % (Auto) [place] # Baso # Seg Neutrophils % Seg Neuts % (Manual) Lymphocytes % (Manual) Monocytes % (Manual) Seg Neutrophils # Seg Neutrophils # Man Lymphocytes # (Manual) Monocytes # (Manual) Eosinophils # (Manual) Basophils # (Manual) PT INR APTT ABG pH ABG pO2 ABG HCO3 ABG O2 Saturation ABG Base Excess ABG Hemoglobin Oxyhemoglobin Sodium Potassium Chloride Carbon Dioxide BUN Creatinine Glucose POC Glucose 108 H 124 H 125 H Lactic Acid Calcium Ionized Calcium Phosphorus Magnesium Total Bilirubin AST ALT Alkaline Phosphatase Ammonia Total Creatine Kinase CK-MB (CK-2) CK-MB (CK-2) Rel Index Total Protein Albumin Urine WBC (Auto) Vancomycin Trough Salicylates Acetaminophen Plasma/Serum Alcohol Crossmatch 01/06/20 01/06/20 01/07/20 17:53 23:51 04:12 WBC 16.5 H RBC 3.29 L Hgb 9.3 L Hct 28.1 L MCH RDW 18.2 H Plt Count 526 H Lymph % (Auto) 8.4 L [place] % (Auto) [place] # 1.0 H Baso # Seg Neutrophils % 84.4 H Seg Neuts % (Manual) Lymphocytes % (Manual) Monocytes % (Manual) Seg Neutrophils # 13.9 H Seg Neutrophils # Man Lymphocytes # (Manual) Monocytes # (Manual) Eosinophils # (Manual) Basophils # (Manual) PT INR APTT ABG pH ABG pO2 ABG HCO3 ABG O2 Saturation ABG Base Excess ABG Hemoglobin Oxyhemoglobin Sodium Potassium Chloride Carbon Dioxide BUN Creatinine Glucose POC Glucose 166 H 128 H Lactic Acid Calcium Ionized Calcium Phosphorus Magnesium Total Bilirubin AST ALT Alkaline Phosphatase Ammonia Total Creatine Kinase CK-MB (CK-2) CK-MB (CK-2) Rel Index Total Protein Albumin Urine WBC (Auto) Vancomycin Trough Salicylates Acetaminophen Plasma/Serum Alcohol Crossmatch 01/07/20 01/07/20 01/07/20 04:12 04:45 11:51 WBC RBC Hgb Hct MCH RDW Plt Count Lymph % (Auto) [place] % (Auto) [place] # Baso # Seg Neutrophils % Seg Neuts % (Manual) Lymphocytes % (Manual) Monocytes % (Manual) Seg Neutrophils # Seg Neutrophils # Man Lymphocytes # (Manual) Monocytes # (Manual) Eosinophils # (Manual) Basophils # (Manual) PT INR APTT ABG pH ABG pO2 ABG HCO3 ABG O2 Saturation ABG Base Excess ABG Hemoglobin Oxyhemoglobin Sodium 136 L Potassium Chloride Carbon Dioxide 21 L BUN 44 H Creatinine 0.6 L Glucose 124 H POC Glucose 134 H 138 H Lactic Acid Calcium Ionized Calcium Phosphorus Magnesium Total Bilirubin AST ALT Alkaline Phosphatase Ammonia Total Creatine Kinase CK-MB (CK-2) CK-MB (CK-2) Rel Index Total Protein Albumin Urine WBC (Auto) Vancomycin Trough Salicylates Acetaminophen Plasma/Serum Alcohol Crossmatch 01/07/20 01/08/20 01/08/20 17:36 00:33 05:29 WBC RBC Hgb Hct MCH RDW Plt Count Lymph % (Auto) [place] % (Auto) [place] # Baso # Seg Neutrophils % Seg Neuts % (Manual) Lymphocytes % (Manual) Monocytes % (Manual) Seg Neutrophils # Seg Neutrophils # Man Lymphocytes # (Manual) Monocytes # (Manual) Eosinophils # (Manual) Basophils # (Manual) PT INR APTT ABG pH ABG pO2 ABG HCO3 ABG O2 Saturation ABG Base Excess ABG Hemoglobin Oxyhemoglobin Sodium Potassium Chloride Carbon Dioxide BUN Creatinine Glucose POC Glucose 128 H 119 H 124 H Lactic Acid Calcium Ionized Calcium Phosphorus Magnesium Total Bilirubin AST ALT Alkaline Phosphatase Ammonia Total Creatine Kinase CK-MB (CK-2) CK-MB (CK-2) Rel Index Total Protein Albumin Urine WBC (Auto) Vancomycin Trough Salicylates Acetaminophen Plasma/Serum Alcohol Crossmatch 01/08/20 01/08/20 01/08/20 12:51 20:25 23:22 WBC RBC Hgb Hct MCH RDW Plt Count Lymph % (Auto) [place] % (Auto) [place] # Baso # Seg Neutrophils % Seg Neuts % (Manual) Lymphocytes % (Manual) Monocytes % (Manual) Seg Neutrophils # Seg Neutrophils # Man Lymphocytes # (Manual) Monocytes # (Manual) Eosinophils # (Manual) Basophils # (Manual) PT INR APTT ABG pH ABG pO2 132.2 H ABG HCO3 ABG O2 Saturation ABG Base Excess ABG Hemoglobin Oxyhemoglobin Sodium Potassium Chloride Carbon Dioxide BUN Creatinine Glucose POC Glucose 128 H 127 H Lactic Acid Calcium Ionized Calcium Phosphorus Magnesium Total Bilirubin AST ALT Alkaline Phosphatase Ammonia Total Creatine Kinase CK-MB (CK-2) CK-MB (CK-2) Rel Index Total Protein Albumin Urine WBC (Auto) Vancomycin Trough Salicylates Acetaminophen Plasma/Serum Alcohol Crossmatch 01/09/20 01/09/20 01/09/20 05:48 08:51 11:29 WBC RBC Hgb Hct MCH RDW Plt Count Lymph % (Auto) [place] % (Auto) [place] # Baso # Seg Neutrophils % Seg Neuts % (Manual) Lymphocytes % (Manual) Monocytes % (Manual) Seg Neutrophils # Seg Neutrophils # Man Lymphocytes # (Manual) Monocytes # (Manual) Eosinophils # (Manual) Basophils # (Manual) PT INR APTT ABG pH ABG pO2 94.3 H ABG HCO3 ABG O2 Saturation ABG Base Excess ABG Hemoglobin 9.5 L Oxyhemoglobin Sodium Potassium Chloride Carbon Dioxide BUN Creatinine Glucose POC Glucose 120 H 112 H Lactic Acid Calcium Ionized Calcium Phosphorus Magnesium Total Bilirubin AST ALT Alkaline Phosphatase Ammonia Total Creatine Kinase CK-MB (CK-2) CK-MB (CK-2) Rel Index Total Protein Albumin Urine WBC (Auto) Vancomycin Trough Salicylates Acetaminophen Plasma/Serum Alcohol Crossmatch 01/09/20 01/10/20 01/10/20 17:57 05:17 12:28 WBC RBC Hgb Hct MCH RDW Plt Count Lymph % (Auto) [place] % (Auto) [place] # Baso # Seg Neutrophils % Seg Neuts % (Manual) Lymphocytes % (Manual) Monocytes % (Manual) Seg Neutrophils # Seg Neutrophils # Man Lymphocytes # (Manual) Monocytes # (Manual) Eosinophils # (Manual) Basophils # (Manual) PT INR APTT ABG pH ABG pO2 ABG HCO3 ABG O2 Saturation ABG Base Excess ABG Hemoglobin Oxyhemoglobin Sodium Potassium Chloride Carbon Dioxide BUN Creatinine Glucose POC Glucose 122 H 115 H 116 H Lactic Acid Calcium Ionized Calcium Phosphorus Magnesium Total Bilirubin AST ALT Alkaline Phosphatase Ammonia Total Creatine Kinase CK-MB (CK-2) CK-MB (CK-2) Rel Index Total Protein Albumin Urine WBC (Auto) Vancomycin Trough Salicylates Acetaminophen Plasma/Serum Alcohol Crossmatch 01/10/20 01/10/20 01/11/20 18:25 23:47 06:05 WBC RBC Hgb Hct MCH RDW Plt Count Lymph % (Auto) [place] % (Auto) [place] # Baso # Seg Neutrophils % Seg Neuts % (Manual) Lymphocytes % (Manual) Monocytes % (Manual) Seg Neutrophils # Seg Neutrophils # Man Lymphocytes # (Manual) Monocytes # (Manual) Eosinophils # (Manual) Basophils # (Manual) PT INR APTT ABG pH ABG pO2 ABG HCO3 ABG O2 Saturation ABG Base Excess ABG Hemoglobin Oxyhemoglobin Sodium Potassium Chloride Carbon Dioxide BUN Creatinine Glucose POC Glucose 123 H 115 H 151 H Lactic Acid Calcium Ionized Calcium Phosphorus Magnesium Total Bilirubin AST ALT Alkaline Phosphatase Ammonia Total Creatine Kinase CK-MB (CK-2) CK-MB (CK-2) Rel Index Total Protein Albumin Urine WBC (Auto) Vancomycin Trough Salicylates Acetaminophen Plasma/Serum Alcohol Crossmatch 01/11/20 01/11/20 01/11/20 07:00 07:00 12:27 WBC 11.8 H RBC 3.40 L Hgb 9.4 L Hct 29.3 L MCH RDW 18.1 H Plt Count 549 H Lymph % (Auto) [place] % (Auto) 9.1 H [place] # 1.1 H Baso # Seg Neutrophils % 73.3 H Seg Neuts % (Manual) Lymphocytes % (Manual) Monocytes % (Manual) Seg Neutrophils # 8.7 H Seg Neutrophils # Man Lymphocytes # (Manual) Monocytes # (Manual) Eosinophils # (Manual) Basophils # (Manual) PT INR APTT ABG pH ABG pO2 ABG HCO3 ABG O2 Saturation ABG Base Excess ABG Hemoglobin Oxyhemoglobin Sodium 134 L Potassium Chloride 97.7 L Carbon Dioxide 21 L BUN 38 H Creatinine 0.5 L Glucose 168 H POC Glucose 117 H Lactic Acid Calcium 10.5 H Ionized Calcium Phosphorus Magnesium Total Bilirubin AST ALT Alkaline Phosphatase Ammonia Total Creatine Kinase CK-MB (CK-2) CK-MB (CK-2) Rel Index Total Protein Albumin Urine WBC (Auto) Vancomycin Trough Salicylates Acetaminophen Plasma/Serum Alcohol Crossmatch 01/11/20 01/12/20 01/12/20 18:19 00:53 05:24 WBC RBC Hgb Hct MCH RDW Plt Count Lymph % (Auto) [place] % (Auto) [place] # Baso # Seg Neutrophils % Seg Neuts % (Manual) Lymphocytes % (Manual) Monocytes % (Manual) Seg Neutrophils # Seg Neutrophils # Man Lymphocytes # (Manual) Monocytes # (Manual) Eosinophils # (Manual) Basophils # (Manual) PT INR APTT ABG pH ABG pO2 ABG HCO3 ABG O2 Saturation ABG Base Excess ABG Hemoglobin Oxyhemoglobin Sodium Potassium Chloride Carbon Dioxide BUN Creatinine Glucose POC Glucose 126 H 126 H 128 H Lactic Acid Calcium Ionized Calcium Phosphorus Magnesium Total Bilirubin AST ALT Alkaline Phosphatase Ammonia Total Creatine Kinase CK-MB (CK-2) CK-MB (CK-2) Rel Index Total Protein Albumin Urine WBC (Auto) Vancomycin Trough Salicylates Acetaminophen Plasma/Serum Alcohol Crossmatch 01/12/20 01/12/20 01/13/20 13:39 18:02 00:27 WBC RBC Hgb Hct MCH RDW Plt Count Lymph % (Auto) [place] % (Auto) [place] # Baso # Seg Neutrophils % Seg Neuts % (Manual) Lymphocytes % (Manual) Monocytes % (Manual) Seg Neutrophils # Seg Neutrophils # Man Lymphocytes # (Manual) Monocytes # (Manual) Eosinophils # (Manual) Basophils # (Manual) PT INR APTT ABG pH ABG pO2 ABG HCO3 ABG O2 Saturation ABG Base Excess ABG Hemoglobin Oxyhemoglobin Sodium Potassium Chloride Carbon Dioxide BUN Creatinine Glucose POC Glucose 146 H 125 H 131 H Lactic Acid Calcium Ionized Calcium Phosphorus Magnesium Total Bilirubin AST ALT Alkaline Phosphatase Ammonia Total Creatine Kinase CK-MB (CK-2) CK-MB (CK-2) Rel Index Total Protein Albumin Urine WBC (Auto) Vancomycin Trough Salicylates Acetaminophen Plasma/Serum Alcohol Crossmatch 01/13/20 01/13/20 01/13/20 05:44 11:54 17:18 WBC RBC Hgb Hct MCH RDW Plt Count Lymph % (Auto) [place] % (Auto) [place] # Baso # Seg Neutrophils % Seg Neuts % (Manual) Lymphocytes % (Manual) Monocytes % (Manual) Seg Neutrophils # Seg Neutrophils # Man Lymphocytes # (Manual) Monocytes # (Manual) Eosinophils # (Manual) Basophils # (Manual) PT INR APTT ABG pH ABG pO2 ABG HCO3 ABG O2 Saturation ABG Base Excess ABG Hemoglobin Oxyhemoglobin Sodium Potassium Chloride Carbon Dioxide BUN Creatinine Glucose POC Glucose 148 H 140 H 130 H Lactic Acid Calcium Ionized Calcium Phosphorus Magnesium Total Bilirubin AST ALT Alkaline Phosphatase Ammonia Total Creatine Kinase CK-MB (CK-2) CK-MB (CK-2) Rel Index Total Protein Albumin Urine WBC (Auto) Vancomycin Trough Salicylates Acetaminophen Plasma/Serum Alcohol Crossmatch 01/14/20 01/14/20 01/14/20 00:16 05:45 12:19 WBC RBC Hgb Hct MCH RDW Plt Count Lymph % (Auto) [place] % (Auto) [place] # Baso # Seg Neutrophils % Seg Neuts % (Manual) Lymphocytes % (Manual) Monocytes % (Manual) Seg Neutrophils # Seg Neutrophils # Man Lymphocytes # (Manual) Monocytes # (Manual) Eosinophils # (Manual) Basophils # (Manual) PT INR APTT ABG pH ABG pO2 ABG HCO3 ABG O2 Saturation ABG Base Excess ABG Hemoglobin Oxyhemoglobin Sodium Potassium Chloride Carbon Dioxide BUN Creatinine Glucose POC Glucose 125 H 146 H 147 H Lactic Acid Calcium Ionized Calcium Phosphorus Magnesium Total Bilirubin AST ALT Alkaline Phosphatase Ammonia Total Creatine Kinase CK-MB (CK-2) CK-MB (CK-2) Rel Index Total Protein Albumin Urine WBC (Auto) Vancomycin Trough Salicylates Acetaminophen Plasma/Serum Alcohol Crossmatch 01/14/20 01/14/20 01/15/20 18:10 23:54 05:14 WBC RBC Hgb Hct MCH RDW Plt Count Lymph % (Auto) [place] % (Auto) [place] # Baso # Seg Neutrophils % Seg Neuts % (Manual) Lymphocytes % (Manual) Monocytes % (Manual) Seg Neutrophils # Seg Neutrophils # Man Lymphocytes # (Manual) Monocytes # (Manual) Eosinophils # (Manual) Basophils # (Manual) PT INR APTT ABG pH ABG pO2 ABG HCO3 ABG O2 Saturation ABG Base Excess ABG Hemoglobin Oxyhemoglobin Sodium Potassium Chloride Carbon Dioxide BUN Creatinine Glucose POC Glucose 136 H 109 H 111 H Lactic Acid Calcium Ionized Calcium Phosphorus Magnesium Total Bilirubin AST ALT Alkaline Phosphatase Ammonia Total Creatine Kinase CK-MB (CK-2) CK-MB (CK-2) Rel Index Total Protein Albumin Urine WBC (Auto) Vancomycin Trough Salicylates Acetaminophen Plasma/Serum Alcohol Crossmatch 01/15/20 01/15/20 01/16/20 12:34 23:25 05:06 WBC RBC Hgb Hct MCH RDW Plt Count Lymph % (Auto) [place] % (Auto) [place] # Baso # Seg Neutrophils % Seg Neuts % (Manual) Lymphocytes % (Manual) Monocytes % (Manual) Seg Neutrophils # Seg Neutrophils # Man Lymphocytes # (Manual) Monocytes # (Manual) Eosinophils # (Manual) Basophils # (Manual) PT INR APTT ABG pH ABG pO2 ABG HCO3 ABG O2 Saturation ABG Base Excess ABG Hemoglobin Oxyhemoglobin Sodium Potassium Chloride Carbon Dioxide BUN Creatinine Glucose POC Glucose 131 H 120 H 121 H Lactic Acid Calcium Ionized Calcium Phosphorus Magnesium Total Bilirubin AST ALT Alkaline Phosphatase Ammonia Total Creatine Kinase CK-MB (CK-2) CK-MB (CK-2) Rel Index Total Protein Albumin Urine WBC (Auto) Vancomycin Trough Salicylates Acetaminophen Plasma/Serum Alcohol Crossmatch 01/16/20 01/16/20 01/17/20 12:15 23:46 05:32 WBC 13.6 H RBC 3.27 L Hgb 9.3 L Hct 28.5 L MCH RDW 17.0 H Plt Count 490 H Lymph % (Auto) 13.1 L [place] % (Auto) [place] # 1.0 H Baso # Seg Neutrophils % 77.5 H Seg Neuts % (Manual) Lymphocytes % (Manual) Monocytes % (Manual) Seg Neutrophils # 10.5 H Seg Neutrophils # Man Lymphocytes # (Manual) Monocytes # (Manual) Eosinophils # (Manual) Basophils # (Manual) PT INR APTT ABG pH ABG pO2 ABG HCO3 ABG O2 Saturation ABG Base Excess ABG Hemoglobin Oxyhemoglobin Sodium Potassium Chloride Carbon Dioxide BUN Creatinine Glucose POC Glucose 152 H 107 H Lactic Acid Calcium Ionized Calcium Phosphorus Magnesium Total Bilirubin AST ALT Alkaline Phosphatase Ammonia Total Creatine Kinase CK-MB (CK-2) CK-MB (CK-2) Rel Index Total Protein Albumin Urine WBC (Auto) Vancomycin Trough Salicylates Acetaminophen Plasma/Serum Alcohol Crossmatch 01/17/20 01/17/20 01/17/20 06:47 12:16 17:21 WBC RBC Hgb Hct MCH RDW Plt Count Lymph % (Auto) [place] % (Auto) [place] # Baso # Seg Neutrophils % Seg Neuts % (Manual) Lymphocytes % (Manual) Monocytes % (Manual) Seg Neutrophils # Seg Neutrophils # Man Lymphocytes # (Manual) Monocytes # (Manual) Eosinophils # (Manual) Basophils # (Manual) PT INR APTT ABG pH ABG pO2 ABG HCO3 ABG O2 Saturation ABG Base Excess ABG Hemoglobin Oxyhemoglobin Sodium Potassium Chloride Carbon Dioxide BUN Creatinine Glucose POC Glucose 112 H 145 H 150 H Lactic Acid Calcium Ionized Calcium Phosphorus Magnesium Total Bilirubin AST ALT Alkaline Phosphatase Ammonia Total Creatine Kinase CK-MB (CK-2) CK-MB (CK-2) Rel Index Total Protein Albumin Urine WBC (Auto) Vancomycin Trough Salicylates Acetaminophen Plasma/Serum Alcohol Crossmatch 01/17/20 01/18/20 01/18/20 23:34 05:47 12:43 WBC RBC Hgb Hct MCH RDW Plt Count Lymph % (Auto) [place] % (Auto) [place] # Baso # Seg Neutrophils % Seg Neuts % (Manual) Lymphocytes % (Manual) Monocytes % (Manual) Seg Neutrophils # Seg Neutrophils # Man Lymphocytes # (Manual) Monocytes # (Manual) Eosinophils # (Manual) Basophils # (Manual) PT INR APTT ABG pH ABG pO2 ABG HCO3 ABG O2 Saturation ABG Base Excess ABG Hemoglobin Oxyhemoglobin Sodium Potassium Chloride Carbon Dioxide BUN Creatinine Glucose POC Glucose 160 H 130 H 124 H Lactic Acid Calcium Ionized Calcium Phosphorus Magnesium Total Bilirubin AST ALT Alkaline Phosphatase Ammonia Total Creatine Kinase CK-MB (CK-2) CK-MB (CK-2) Rel Index Total Protein Albumin Urine WBC (Auto) Vancomycin Trough Salicylates Acetaminophen Plasma/Serum Alcohol Crossmatch 01/18/20 01/19/20 01/19/20 18:26 00:14 06:24 WBC RBC Hgb Hct MCH RDW Plt Count Lymph % (Auto) [place] % (Auto) [place] # Baso # Seg Neutrophils % Seg Neuts % (Manual) Lymphocytes % (Manual) Monocytes % (Manual) Seg Neutrophils # Seg Neutrophils # Man Lymphocytes # (Manual) Monocytes # (Manual) Eosinophils # (Manual) Basophils # (Manual) PT INR APTT ABG pH ABG pO2 ABG HCO3 ABG O2 Saturation ABG Base Excess ABG Hemoglobin Oxyhemoglobin Sodium Potassium Chloride Carbon Dioxide BUN Creatinine Glucose POC Glucose 119 H 114 H 144 H Lactic Acid Calcium Ionized Calcium Phosphorus Magnesium Total Bilirubin AST ALT Alkaline Phosphatase Ammonia Total Creatine Kinase CK-MB (CK-2) CK-MB (CK-2) Rel Index Total Protein Albumin Urine WBC (Auto) Vancomycin Trough Salicylates Acetaminophen Plasma/Serum Alcohol Crossmatch 01/19/20 01/19/20 01/20/20 12:24 17:50 12:06 WBC RBC Hgb Hct MCH RDW Plt Count Lymph % (Auto) [place] % (Auto) [place] # Baso # Seg Neutrophils % Seg Neuts % (Manual) Lymphocytes % (Manual) Monocytes % (Manual) Seg Neutrophils # Seg Neutrophils # Man Lymphocytes # (Manual) Monocytes # (Manual) Eosinophils # (Manual) Basophils # (Manual) PT INR APTT ABG pH ABG pO2 ABG HCO3 ABG O2 Saturation ABG Base Excess ABG Hemoglobin Oxyhemoglobin Sodium Potassium Chloride Carbon Dioxide BUN Creatinine Glucose POC Glucose 132 H 144 H 135 H Lactic Acid Calcium Ionized Calcium Phosphorus Magnesium Total Bilirubin AST ALT Alkaline Phosphatase Ammonia Total Creatine Kinase CK-MB (CK-2) CK-MB (CK-2) Rel Index Total Protein Albumin Urine WBC (Auto) Vancomycin Trough Salicylates Acetaminophen Plasma/Serum Alcohol Crossmatch 01/21/20 01/21/20 01/21/20 05:46 13:02 23:49 WBC RBC Hgb Hct MCH RDW Plt Count Lymph % (Auto) [place] % (Auto) [place] # Baso # Seg Neutrophils % Seg Neuts % (Manual) Lymphocytes % (Manual) Monocytes % (Manual) Seg Neutrophils # Seg Neutrophils # Man Lymphocytes # (Manual) Monocytes # (Manual) Eosinophils # (Manual) Basophils # (Manual) PT INR APTT ABG pH ABG pO2 ABG HCO3 ABG O2 Saturation ABG Base Excess ABG Hemoglobin Oxyhemoglobin Sodium Potassium Chloride Carbon Dioxide BUN Creatinine Glucose POC Glucose 114 H 136 H 120 H Lactic Acid Calcium Ionized Calcium Phosphorus Magnesium Total Bilirubin AST ALT Alkaline Phosphatase Ammonia Total Creatine Kinase CK-MB (CK-2) CK-MB (CK-2) Rel Index Total Protein Albumin Urine WBC (Auto) Vancomycin Trough Salicylates Acetaminophen Plasma/Serum Alcohol Crossmatch 01/22/20 01/22/20 01/22/20 05:41 11:44 16:31 WBC RBC Hgb Hct MCH RDW Plt Count Lymph % (Auto) [place] % (Auto) [place] # Baso # Seg Neutrophils % Seg Neuts % (Manual) Lymphocytes % (Manual) Monocytes % (Manual) Seg Neutrophils # Seg Neutrophils # Man Lymphocytes # (Manual) Monocytes # (Manual) Eosinophils # (Manual) Basophils # (Manual) PT INR APTT ABG pH ABG pO2 ABG HCO3 ABG O2 Saturation ABG Base Excess ABG Hemoglobin Oxyhemoglobin Sodium Potassium Chloride Carbon Dioxide BUN Creatinine Glucose POC Glucose 124 H 173 H 111 H Lactic Acid Calcium Ionized Calcium Phosphorus Magnesium Total Bilirubin AST ALT Alkaline Phosphatase Ammonia Total Creatine Kinase CK-MB (CK-2) CK-MB (CK-2) Rel Index Total Protein Albumin Urine WBC (Auto) Vancomycin Trough Salicylates Acetaminophen Plasma/Serum Alcohol Crossmatch 01/22/20 01/23/20 01/23/20 23:25 05:15 12:15 WBC RBC Hgb Hct MCH RDW Plt Count Lymph % (Auto) [place] % (Auto) [place] # Baso # Seg Neutrophils % Seg Neuts % (Manual) Lymphocytes % (Manual) Monocytes % (Manual) Seg Neutrophils # Seg Neutrophils # Man Lymphocytes # (Manual) Monocytes # (Manual) Eosinophils # (Manual) Basophils # (Manual) PT INR APTT ABG pH ABG pO2 ABG HCO3 ABG O2 Saturation ABG Base Excess ABG Hemoglobin Oxyhemoglobin Sodium Potassium Chloride Carbon Dioxide BUN Creatinine Glucose POC Glucose 134 H 117 H 129 H Lactic Acid Calcium Ionized Calcium Phosphorus Magnesium Total Bilirubin AST ALT Alkaline Phosphatase Ammonia Total Creatine Kinase CK-MB (CK-2) CK-MB (CK-2) Rel Index Total Protein Albumin Urine WBC (Auto) Vancomycin Trough Salicylates Acetaminophen Plasma/Serum Alcohol Crossmatch 01/23/20 01/23/20 01/23/20 16:58 21:17 23:47 WBC RBC Hgb Hct MCH RDW Plt Count Lymph % (Auto) [place] % (Auto) [place] # Baso # Seg Neutrophils % Seg Neuts % (Manual) Lymphocytes % (Manual) Monocytes % (Manual) Seg Neutrophils # Seg Neutrophils # Man Lymphocytes # (Manual) Monocytes # (Manual) Eosinophils # (Manual) Basophils # (Manual) PT INR APTT ABG pH ABG pO2 ABG HCO3 ABG O2 Saturation ABG Base Excess ABG Hemoglobin Oxyhemoglobin Sodium Potassium Chloride Carbon Dioxide BUN Creatinine Glucose POC Glucose 156 H 185 H 156 H Lactic Acid Calcium Ionized Calcium Phosphorus Magnesium Total Bilirubin AST ALT Alkaline Phosphatase Ammonia Total Creatine Kinase CK-MB (CK-2) CK-MB (CK-2) Rel Index Total Protein Albumin Urine WBC (Auto) Vancomycin Trough Salicylates Acetaminophen Plasma/Serum Alcohol Crossmatch 01/24/20 01/24/20 01/24/20 04:47 04:47 05:59 WBC 17.8 H RBC 3.60 L Hgb Hct MCH RDW 16.2 H Plt Count 688 H Lymph % (Auto) 11.8 L [place] % (Auto) 7.5 H [place] # 1.3 H Baso # Seg Neutrophils % 79.9 H Seg Neuts % (Manual) Lymphocytes % (Manual) Monocytes % (Manual) Seg Neutrophils # 14.2 H Seg Neutrophils # Man Lymphocytes # (Manual) Monocytes # (Manual) Eosinophils # (Manual) Basophils # (Manual) PT INR APTT ABG pH ABG pO2 ABG HCO3 ABG O2 Saturation ABG Base Excess ABG Hemoglobin Oxyhemoglobin Sodium 131 L Potassium Chloride 91.2 L Carbon Dioxide BUN 22 H Creatinine 0.3 L Glucose 123 H POC Glucose 147 H Lactic Acid Calcium 10.9 H Ionized Calcium Phosphorus Magnesium Total Bilirubin AST ALT Alkaline Phosphatase Ammonia Total Creatine Kinase CK-MB (CK-2) CK-MB (CK-2) Rel Index Total Protein Albumin Urine WBC (Auto) Vancomycin Trough Salicylates Acetaminophen Plasma/Serum Alcohol Crossmatch 01/24/20 01/24/20 01/25/20 11:47 16:45 00:18 WBC RBC Hgb Hct MCH RDW Plt Count Lymph % (Auto) [place] % (Auto) [place] # Baso # Seg Neutrophils % Seg Neuts % (Manual) Lymphocytes % (Manual) Monocytes % (Manual) Seg Neutrophils # Seg Neutrophils # Man Lymphocytes # (Manual) Monocytes # (Manual) Eosinophils # (Manual) Basophils # (Manual) PT INR APTT ABG pH ABG pO2 ABG HCO3 ABG O2 Saturation ABG Base Excess ABG Hemoglobin Oxyhemoglobin Sodium Potassium Chloride Carbon Dioxide BUN Creatinine Glucose POC Glucose 114 H 108 H 119 H Lactic Acid Calcium Ionized Calcium Phosphorus Magnesium Total Bilirubin AST ALT Alkaline Phosphatase Ammonia Total Creatine Kinase CK-MB (CK-2) CK-MB (CK-2) Rel Index Total Protein Albumin Urine WBC (Auto) Vancomycin Trough Salicylates Acetaminophen Plasma/Serum Alcohol Crossmatch 01/25/20 01/25/20 01/25/20 07:18 11:58 16:56 WBC RBC Hgb Hct MCH RDW Plt Count Lymph % (Auto) [place] % (Auto) [place] # Baso # Seg Neutrophils % Seg Neuts % (Manual) Lymphocytes % (Manual) Monocytes % (Manual) Seg Neutrophils # Seg Neutrophils # Man Lymphocytes # (Manual) Monocytes # (Manual) Eosinophils # (Manual) Basophils # (Manual) PT INR APTT ABG pH ABG pO2 ABG HCO3 ABG O2 Saturation ABG Base Excess ABG Hemoglobin Oxyhemoglobin Sodium Potassium Chloride Carbon Dioxide BUN Creatinine Glucose POC Glucose 136 H 136 H 147 H Lactic Acid Calcium Ionized Calcium Phosphorus Magnesium Total Bilirubin AST ALT Alkaline Phosphatase Ammonia Total Creatine Kinase CK-MB (CK-2) CK-MB (CK-2) Rel Index Total Protein Albumin Urine WBC (Auto) Vancomycin Trough Salicylates Acetaminophen Plasma/Serum Alcohol Crossmatch 01/26/20 01/26/20 01/26/20 00:29 05:59 05:59 WBC 12.8 H RBC Hgb Hct MCH RDW 16.4 H Plt Count 743 H Lymph % (Auto) [place] % (Auto) [place] # 0.9 H Baso # Seg Neutrophils % 76.2 H Seg Neuts % (Manual) Lymphocytes % (Manual) Monocytes % (Manual) Seg Neutrophils # 9.8 H Seg Neutrophils # Man Lymphocytes # (Manual) Monocytes # (Manual) Eosinophils # (Manual) Basophils # (Manual) PT INR APTT ABG pH ABG pO2 ABG HCO3 ABG O2 Saturation ABG Base Excess ABG Hemoglobin Oxyhemoglobin Sodium 132 L Potassium Chloride 90.9 L Carbon Dioxide BUN 23 H Creatinine 0.4 L Glucose 122 H POC Glucose 107 H Lactic Acid Calcium 11.0 H Ionized Calcium Phosphorus Magnesium Total Bilirubin AST ALT Alkaline Phosphatase Ammonia Total Creatine Kinase CK-MB (CK-2) CK-MB (CK-2) Rel Index Total Protein Albumin Urine WBC (Auto) Vancomycin Trough Salicylates Acetaminophen Plasma/Serum Alcohol Crossmatch 01/26/20 01/26/20 01/26/20 06:27 12:06 16:49 WBC RBC Hgb Hct MCH RDW Plt Count Lymph % (Auto) [place] % (Auto) [place] # Baso # Seg Neutrophils % Seg Neuts % (Manual) Lymphocytes % (Manual) Monocytes % (Manual) Seg Neutrophils # Seg Neutrophils # Man Lymphocytes # (Manual) Monocytes # (Manual) Eosinophils # (Manual) Basophils # (Manual) PT INR APTT ABG pH ABG pO2 ABG HCO3 ABG O2 Saturation ABG Base Excess ABG Hemoglobin Oxyhemoglobin Sodium Potassium Chloride Carbon Dioxide BUN Creatinine Glucose POC Glucose 132 H 132 H 110 H Lactic Acid Calcium Ionized Calcium Phosphorus Magnesium Total Bilirubin AST ALT Alkaline Phosphatase Ammonia Total Creatine Kinase CK-MB (CK-2) CK-MB (CK-2) Rel Index Total Protein Albumin Urine WBC (Auto) Vancomycin Trough Salicylates Acetaminophen Plasma/Serum Alcohol Crossmatch 01/27/20 01/27/20 01/27/20 00:08 11:49 16:24 WBC RBC Hgb Hct MCH RDW Plt Count Lymph % (Auto) [place] % (Auto) [place] # Baso # Seg Neutrophils % Seg Neuts % (Manual) Lymphocytes % (Manual) Monocytes % (Manual) Seg Neutrophils # Seg Neutrophils # Man Lymphocytes # (Manual) Monocytes # (Manual) Eosinophils # (Manual) Basophils # (Manual) PT INR APTT ABG pH ABG pO2 ABG HCO3 ABG O2 Saturation ABG Base Excess ABG Hemoglobin Oxyhemoglobin Sodium Potassium Chloride Carbon Dioxide BUN Creatinine Glucose POC Glucose 107 H 119 H 129 H Lactic Acid Calcium Ionized Calcium Phosphorus Magnesium Total Bilirubin AST ALT Alkaline Phosphatase Ammonia Total Creatine Kinase CK-MB (CK-2) CK-MB (CK-2) Rel Index Total Protein Albumin Urine WBC (Auto) Vancomycin Trough Salicylates Acetaminophen Plasma/Serum Alcohol Crossmatch 01/27/20 01/28/20 01/28/20 18:28 01:00 06:22 WBC RBC Hgb Hct MCH RDW Plt Count Lymph % (Auto) [place] % (Auto) [place] # Baso # Seg Neutrophils % Seg Neuts % (Manual) Lymphocytes % (Manual) Monocytes % (Manual) Seg Neutrophils # Seg Neutrophils # Man Lymphocytes # (Manual) Monocytes # (Manual) Eosinophils # (Manual) Basophils # (Manual) PT INR APTT ABG pH ABG pO2 ABG HCO3 ABG O2 Saturation ABG Base Excess ABG Hemoglobin Oxyhemoglobin Sodium Potassium Chloride Carbon Dioxide BUN Creatinine Glucose POC Glucose 126 H 121 H 114 H Lactic Acid Calcium Ionized Calcium Phosphorus Magnesium Total Bilirubin AST ALT Alkaline Phosphatase Ammonia Total Creatine Kinase CK-MB (CK-2) CK-MB (CK-2) Rel Index Total Protein Albumin Urine WBC (Auto) Vancomycin Trough Salicylates Acetaminophen Plasma/Serum Alcohol Crossmatch 01/28/20 01/28/20 01/29/20 11:47 18:00 00:05 WBC RBC Hgb Hct MCH RDW Plt Count Lymph % (Auto) [place] % (Auto) [place] # Baso # Seg Neutrophils % Seg Neuts % (Manual) Lymphocytes % (Manual) Monocytes % (Manual) Seg Neutrophils # Seg Neutrophils # Man Lymphocytes # (Manual) Monocytes # (Manual) Eosinophils # (Manual) Basophils # (Manual) PT INR APTT ABG pH ABG pO2 ABG HCO3 ABG O2 Saturation ABG Base Excess ABG Hemoglobin Oxyhemoglobin Sodium Potassium Chloride Carbon Dioxide BUN Creatinine Glucose POC Glucose 106 H 117 H 127 H Lactic Acid Calcium Ionized Calcium Phosphorus Magnesium Total Bilirubin AST ALT Alkaline Phosphatase Ammonia Total Creatine Kinase CK-MB (CK-2) CK-MB (CK-2) Rel Index Total Protein Albumin Urine WBC (Auto) Vancomycin Trough Salicylates Acetaminophen Plasma/Serum Alcohol Crossmatch 01/29/20 01/29/20 01/29/20 06:04 11:40 16:38 WBC RBC Hgb Hct MCH RDW Plt Count Lymph % (Auto) [place] % (Auto) [place] # Baso # Seg Neutrophils % Seg Neuts % (Manual) Lymphocytes % (Manual) Monocytes % (Manual) Seg Neutrophils # Seg Neutrophils # Man Lymphocytes # (Manual) Monocytes # (Manual) Eosinophils # (Manual) Basophils # (Manual) PT INR APTT ABG pH ABG pO2 ABG HCO3 ABG O2 Saturation ABG Base Excess ABG Hemoglobin Oxyhemoglobin Sodium Potassium Chloride Carbon Dioxide BUN Creatinine Glucose POC Glucose 147 H 139 H 143 H Lactic Acid Calcium Ionized Calcium Phosphorus Magnesium Total Bilirubin AST ALT Alkaline Phosphatase Ammonia Total Creatine Kinase CK-MB (CK-2) CK-MB (CK-2) Rel Index Total Protein Albumin Urine WBC (Auto) Vancomycin Trough Salicylates Acetaminophen Plasma/Serum Alcohol Crossmatch 01/29/20 01/30/20 01/30/20 23:46 06:43 12:07 WBC RBC Hgb Hct MCH RDW Plt Count Lymph % (Auto) [place] % (Auto) [place] # Baso # Seg Neutrophils % Seg Neuts % (Manual) Lymphocytes % (Manual) Monocytes % (Manual) Seg Neutrophils # Seg Neutrophils # Man Lymphocytes # (Manual) Monocytes # (Manual) Eosinophils # (Manual) Basophils # (Manual) PT INR APTT ABG pH ABG pO2 ABG HCO3 ABG O2 Saturation ABG Base Excess ABG Hemoglobin Oxyhemoglobin Sodium Potassium Chloride Carbon Dioxide BUN Creatinine Glucose POC Glucose 122 H 122 H 134 H Lactic Acid Calcium Ionized Calcium Phosphorus Magnesium Total Bilirubin AST ALT Alkaline Phosphatase Ammonia Total Creatine Kinase CK-MB (CK-2) CK-MB (CK-2) Rel Index Total Protein Albumin Urine WBC (Auto) Vancomycin Trough Salicylates Acetaminophen Plasma/Serum Alcohol Crossmatch 01/30/20 01/31/20 01/31/20 17:59 00:52 05:54 WBC RBC Hgb Hct MCH RDW Plt Count Lymph % (Auto) [place] % (Auto) [place] # Baso # Seg Neutrophils % Seg Neuts % (Manual) Lymphocytes % (Manual) Monocytes % (Manual) Seg Neutrophils # Seg Neutrophils # Man Lymphocytes # (Manual) Monocytes # (Manual) Eosinophils # (Manual) Basophils # (Manual) PT INR APTT ABG pH ABG pO2 ABG HCO3 ABG O2 Saturation ABG Base Excess ABG Hemoglobin Oxyhemoglobin Sodium Potassium Chloride Carbon Dioxide BUN Creatinine Glucose POC Glucose 116 H 127 H 127 H Lactic Acid Calcium Ionized Calcium Phosphorus Magnesium Total Bilirubin AST ALT Alkaline Phosphatase Ammonia Total Creatine Kinase CK-MB (CK-2) CK-MB (CK-2) Rel Index Total Protein Albumin Urine WBC (Auto) Vancomycin Trough Salicylates Acetaminophen Plasma/Serum Alcohol Crossmatch 01/31/20 02/01/20 02/01/20 12:20 00:48 12:21 WBC RBC Hgb Hct MCH RDW Plt Count Lymph % (Auto) [place] % (Auto) [place] # Baso # Seg Neutrophils % Seg Neuts % (Manual) Lymphocytes % (Manual) Monocytes % (Manual) Seg Neutrophils # Seg Neutrophils # Man Lymphocytes # (Manual) Monocytes # (Manual) Eosinophils # (Manual) Basophils # (Manual) PT INR APTT ABG pH ABG pO2 ABG HCO3 ABG O2 Saturation ABG Base Excess ABG Hemoglobin Oxyhemoglobin Sodium Potassium Chloride Carbon Dioxide BUN Creatinine Glucose POC Glucose 126 H 154 H 123 H Lactic Acid Calcium Ionized Calcium Phosphorus Magnesium Total Bilirubin AST ALT Alkaline Phosphatase Ammonia Total Creatine Kinase CK-MB (CK-2) CK-MB (CK-2) Rel Index Total Protein Albumin Urine WBC (Auto) Vancomycin Trough Salicylates Acetaminophen Plasma/Serum Alcohol Crossmatch 02/01/20 02/02/20 02/02/20 23:58 06:08 11:50 WBC RBC Hgb Hct MCH RDW Plt Count Lymph % (Auto) [place] % (Auto) [place] # Baso # Seg Neutrophils % Seg Neuts % (Manual) Lymphocytes % (Manual) Monocytes % (Manual) Seg Neutrophils # Seg Neutrophils # Man Lymphocytes # (Manual) Monocytes # (Manual) Eosinophils # (Manual) Basophils # (Manual) PT INR APTT ABG pH ABG pO2 ABG HCO3 ABG O2 Saturation ABG Base Excess ABG Hemoglobin Oxyhemoglobin Sodium Potassium Chloride Carbon Dioxide BUN Creatinine Glucose POC Glucose 125 H 144 H 131 H Lactic Acid Calcium Ionized Calcium Phosphorus Magnesium Total Bilirubin AST ALT Alkaline Phosphatase Ammonia Total Creatine Kinase CK-MB (CK-2) CK-MB (CK-2) Rel Index Total Protein Albumin Urine WBC (Auto) Vancomycin Trough Salicylates Acetaminophen Plasma/Serum Alcohol Crossmatch 02/02/20 02/03/20 02/03/20 17:53 00:14 05:47 WBC RBC Hgb Hct MCH RDW Plt Count Lymph % (Auto) [place] % (Auto) [place] # Baso # Seg Neutrophils % Seg Neuts % (Manual) Lymphocytes % (Manual) Monocytes % (Manual) Seg Neutrophils # Seg Neutrophils # Man Lymphocytes # (Manual) Monocytes # (Manual) Eosinophils # (Manual) Basophils # (Manual) PT INR APTT ABG pH ABG pO2 ABG HCO3 ABG O2 Saturation ABG Base Excess ABG Hemoglobin Oxyhemoglobin Sodium Potassium Chloride Carbon Dioxide BUN Creatinine Glucose POC Glucose 108 H 122 H 118 H Lactic Acid Calcium Ionized Calcium Phosphorus Magnesium Total Bilirubin AST ALT Alkaline Phosphatase Ammonia Total Creatine Kinase CK-MB (CK-2) CK-MB (CK-2) Rel Index Total Protein Albumin Urine WBC (Auto) Vancomycin Trough Salicylates Acetaminophen Plasma/Serum Alcohol Crossmatch 02/03/20 02/03/20 02/03/20 05:59 05:59 11:49 WBC RBC 3.48 L Hgb Hct 29.9 L MCH RDW 16.2 H Plt Count 707 H Lymph % (Auto) [place] % (Auto) 9.3 H [place] # 0.9 H Baso # Seg Neutrophils % Seg Neuts % (Manual) Lymphocytes % (Manual) Monocytes % (Manual) Seg Neutrophils # Seg Neutrophils # Man Lymphocytes # (Manual) Monocytes # (Manual) Eosinophils # (Manual) Basophils # (Manual) PT INR APTT ABG pH ABG pO2 ABG HCO3 ABG O2 Saturation ABG Base Excess ABG Hemoglobin Oxyhemoglobin Sodium 136 L Potassium Chloride 93.4 L Carbon Dioxide BUN 20 H Creatinine 0.5 L Glucose 101 H POC Glucose 133 H Lactic Acid Calcium 10.8 H Ionized Calcium Phosphorus Magnesium Total Bilirubin AST ALT Alkaline Phosphatase Ammonia Total Creatine Kinase CK-MB (CK-2) CK-MB (CK-2) Rel Index Total Protein Albumin Urine WBC (Auto) Vancomycin Trough Salicylates Acetaminophen Plasma/Serum Alcohol Crossmatch 02/03/20 02/04/20 02/04/20 23:19 05:37 23:56 WBC RBC Hgb Hct MCH RDW Plt Count Lymph % (Auto) [place] % (Auto) [place] # Baso # Seg Neutrophils % Seg Neuts % (Manual) Lymphocytes % (Manual) Monocytes % (Manual) Seg Neutrophils # Seg Neutrophils # Man Lymphocytes # (Manual) Monocytes # (Manual) Eosinophils # (Manual) Basophils # (Manual) PT INR APTT ABG pH ABG pO2 ABG HCO3 ABG O2 Saturation ABG Base Excess ABG Hemoglobin Oxyhemoglobin Sodium Potassium Chloride Carbon Dioxide BUN Creatinine Glucose POC Glucose 135 H 108 H 158 H Lactic Acid Calcium Ionized Calcium Phosphorus Magnesium Total Bilirubin AST ALT Alkaline Phosphatase Ammonia Total Creatine Kinase CK-MB (CK-2) CK-MB (CK-2) Rel Index Total Protein Albumin Urine WBC (Auto) Vancomycin Trough Salicylates Acetaminophen Plasma/Serum Alcohol Crossmatch 02/05/20 02/05/20 02/06/20 05:33 23:24 05:50 WBC RBC Hgb Hct MCH RDW Plt Count Lymph % (Auto) [place] % (Auto) [place] # Baso # Seg Neutrophils % Seg Neuts % (Manual) Lymphocytes % (Manual) Monocytes % (Manual) Seg Neutrophils # Seg Neutrophils # Man Lymphocytes # (Manual) Monocytes # (Manual) Eosinophils # (Manual) Basophils # (Manual) PT INR APTT ABG pH ABG pO2 ABG HCO3 ABG O2 Saturation ABG Base Excess ABG Hemoglobin Oxyhemoglobin Sodium Potassium Chloride Carbon Dioxide BUN Creatinine Glucose POC Glucose 152 H 158 H 110 H Lactic Acid Calcium Ionized Calcium Phosphorus Magnesium Total Bilirubin AST ALT Alkaline Phosphatase Ammonia Total Creatine Kinase CK-MB (CK-2) CK-MB (CK-2) Rel Index Total Protein Albumin Urine WBC (Auto) Vancomycin Trough Salicylates Acetaminophen Plasma/Serum Alcohol Crossmatch 02/06/20 02/07/20 02/07/20 16:03 00:13 05:27 WBC RBC Hgb Hct MCH RDW Plt Count Lymph % (Auto) [place] % (Auto) [place] # Baso # Seg Neutrophils % Seg Neuts % (Manual) Lymphocytes % (Manual) Monocytes % (Manual) Seg Neutrophils # Seg Neutrophils # Man Lymphocytes # (Manual) Monocytes # (Manual) Eosinophils # (Manual) Basophils # (Manual) PT INR APTT ABG pH ABG pO2 ABG HCO3 ABG O2 Saturation ABG Base Excess ABG Hemoglobin Oxyhemoglobin Sodium Potassium Chloride Carbon Dioxide BUN Creatinine Glucose POC Glucose 130 H 115 H 115 H Lactic Acid Calcium Ionized Calcium Phosphorus Magnesium Total Bilirubin AST ALT Alkaline Phosphatase Ammonia Total Creatine Kinase CK-MB (CK-2) CK-MB (CK-2) Rel Index Total Protein Albumin Urine WBC (Auto) Vancomycin Trough Salicylates Acetaminophen Plasma/Serum Alcohol Crossmatch 02/07/20 02/07/20 02/08/20 11:42 17:23 00:37 WBC RBC Hgb Hct MCH RDW Plt Count Lymph % (Auto) [place] % (Auto) [place] # Baso # Seg Neutrophils % Seg Neuts % (Manual) Lymphocytes % (Manual) Monocytes % (Manual) Seg Neutrophils # Seg Neutrophils # Man Lymphocytes # (Manual) Monocytes # (Manual) Eosinophils # (Manual) Basophils # (Manual) PT INR APTT ABG pH ABG pO2 ABG HCO3 ABG O2 Saturation ABG Base Excess ABG Hemoglobin Oxyhemoglobin Sodium Potassium Chloride Carbon Dioxide BUN Creatinine Glucose POC Glucose 113 H 114 H 136 H Lactic Acid Calcium Ionized Calcium Phosphorus Magnesium Total Bilirubin AST ALT Alkaline Phosphatase Ammonia Total Creatine Kinase CK-MB (CK-2) CK-MB (CK-2) Rel Index Total Protein Albumin Urine WBC (Auto) Vancomycin Trough Salicylates Acetaminophen Plasma/Serum Alcohol Crossmatch 02/08/20 02/08/20 02/08/20 08:52 11:42 17:02 WBC RBC Hgb Hct MCH RDW Plt Count Lymph % (Auto) [place] % (Auto) [place] # Baso # Seg Neutrophils % Seg Neuts % (Manual) Lymphocytes % (Manual) Monocytes % (Manual) Seg Neutrophils # Seg Neutrophils # Man Lymphocytes # (Manual) Monocytes # (Manual) Eosinophils # (Manual) Basophils # (Manual) PT INR APTT ABG pH ABG pO2 ABG HCO3 ABG O2 Saturation ABG Base Excess ABG Hemoglobin Oxyhemoglobin Sodium 136 L Potassium Chloride 95.7 L Carbon Dioxide BUN 21 H Creatinine 0.4 L Glucose POC Glucose 128 H 145 H Lactic Acid Calcium 10.4 H Ionized Calcium Phosphorus Magnesium Total Bilirubin AST ALT Alkaline Phosphatase Ammonia Total Creatine Kinase CK-MB (CK-2) CK-MB (CK-2) Rel Index Total Protein Albumin Urine WBC (Auto) Vancomycin Trough Salicylates Acetaminophen Plasma/Serum Alcohol Crossmatch 02/09/20 02/09/20 02/09/20 01:05 11:52 16:19 WBC RBC Hgb Hct MCH RDW Plt Count Lymph % (Auto) [place] % (Auto) [place] # Baso # Seg Neutrophils % Seg Neuts % (Manual) Lymphocytes % (Manual) Monocytes % (Manual) Seg Neutrophils # Seg Neutrophils # Man Lymphocytes # (Manual) Monocytes # (Manual) Eosinophils # (Manual) Basophils # (Manual) PT INR APTT ABG pH ABG pO2 ABG HCO3 ABG O2 Saturation ABG Base Excess ABG Hemoglobin Oxyhemoglobin Sodium Potassium Chloride Carbon Dioxide BUN Creatinine Glucose POC Glucose 117 H 141 H 113 H Lactic Acid Calcium Ionized Calcium Phosphorus Magnesium Total Bilirubin AST ALT Alkaline Phosphatase Ammonia Total Creatine Kinase CK-MB (CK-2) CK-MB (CK-2) Rel Index Total Protein Albumin Urine WBC (Auto) Vancomycin Trough Salicylates Acetaminophen Plasma/Serum Alcohol Crossmatch 02/10/20 02/10/20 02/10/20 05:25 12:50 17:08 WBC RBC Hgb Hct MCH RDW Plt Count Lymph % (Auto) [place] % (Auto) [place] # Baso # Seg Neutrophils % Seg Neuts % (Manual) Lymphocytes % (Manual) Monocytes % (Manual) Seg Neutrophils # Seg Neutrophils # Man Lymphocytes # (Manual) Monocytes # (Manual) Eosinophils # (Manual) Basophils # (Manual) PT INR APTT ABG pH ABG pO2 ABG HCO3 ABG O2 Saturation ABG Base Excess ABG Hemoglobin Oxyhemoglobin Sodium Potassium Chloride Carbon Dioxide BUN Creatinine Glucose POC Glucose 136 H 127 H 111 H Lactic Acid Calcium Ionized Calcium Phosphorus Magnesium Total Bilirubin AST ALT Alkaline Phosphatase Ammonia Total Creatine Kinase CK-MB (CK-2) CK-MB (CK-2) Rel Index Total Protein Albumin Urine WBC (Auto) Vancomycin Trough Salicylates Acetaminophen Plasma/Serum Alcohol Crossmatch 02/10/20 02/11/20 02/11/20 23:55 06:11 12:07 WBC RBC Hgb Hct MCH RDW Plt Count Lymph % (Auto) [place] % (Auto) [place] # Baso # Seg Neutrophils % Seg Neuts % (Manual) Lymphocytes % (Manual) Monocytes % (Manual) Seg Neutrophils # Seg Neutrophils # Man Lymphocytes # (Manual) Monocytes # (Manual) Eosinophils # (Manual) Basophils # (Manual) PT INR APTT ABG pH ABG pO2 ABG HCO3 ABG O2 Saturation ABG Base Excess ABG Hemoglobin Oxyhemoglobin Sodium Potassium Chloride Carbon Dioxide BUN Creatinine Glucose POC Glucose 129 H 128 H 141 H Lactic Acid Calcium Ionized Calcium Phosphorus Magnesium Total Bilirubin AST ALT Alkaline Phosphatase Ammonia Total Creatine Kinase CK-MB (CK-2) CK-MB (CK-2) Rel Index Total Protein Albumin Urine WBC (Auto) Vancomycin Trough Salicylates Acetaminophen Plasma/Serum Alcohol Crossmatch 02/11/20 02/12/20 02/13/20 18:22 02:39 06:45 WBC RBC Hgb Hct MCH RDW Plt Count Lymph % (Auto) [place] % (Auto) [place] # Baso # Seg Neutrophils % Seg Neuts % (Manual) Lymphocytes % (Manual) Monocytes % (Manual) Seg Neutrophils # Seg Neutrophils # Man Lymphocytes # (Manual) Monocytes # (Manual) Eosinophils # (Manual) Basophils # (Manual) PT INR APTT ABG pH ABG pO2 ABG HCO3 ABG O2 Saturation ABG Base Excess ABG Hemoglobin Oxyhemoglobin Sodium Potassium Chloride Carbon Dioxide BUN Creatinine Glucose POC Glucose 118 H 107 H 124 H Lactic Acid Calcium Ionized Calcium Phosphorus Magnesium Total Bilirubin AST ALT Alkaline Phosphatase Ammonia Total Creatine Kinase CK-MB (CK-2) CK-MB (CK-2) Rel Index Total Protein Albumin Urine WBC (Auto) Vancomycin Trough Salicylates Acetaminophen Plasma/Serum Alcohol Crossmatch 02/13/20 02/13/20 02/14/20 12:26 18:19 00:21 WBC RBC Hgb Hct MCH RDW Plt Count Lymph % (Auto) [place] % (Auto) [place] # Baso # Seg Neutrophils % Seg Neuts % (Manual) Lymphocytes % (Manual) Monocytes % (Manual) Seg Neutrophils # Seg Neutrophils # Man Lymphocytes # (Manual) Monocytes # (Manual) Eosinophils # (Manual) Basophils # (Manual) PT INR APTT ABG pH ABG pO2 ABG HCO3 ABG O2 Saturation ABG Base Excess ABG Hemoglobin Oxyhemoglobin Sodium Potassium Chloride Carbon Dioxide BUN Creatinine Glucose POC Glucose 124 H 118 H 130 H Lactic Acid Calcium Ionized Calcium Phosphorus Magnesium Total Bilirubin AST ALT Alkaline Phosphatase Ammonia Total Creatine Kinase CK-MB (CK-2) CK-MB (CK-2) Rel Index Total Protein Albumin Urine WBC (Auto) Vancomycin Trough Salicylates Acetaminophen Plasma/Serum Alcohol Crossmatch 02/14/20 02/14/20 02/16/20 11:19 16:16 00:58 WBC RBC Hgb Hct MCH RDW Plt Count Lymph % (Auto) [place] % (Auto) [place] # Baso # Seg Neutrophils % Seg Neuts % (Manual) Lymphocytes % (Manual) Monocytes % (Manual) Seg Neutrophils # Seg Neutrophils # Man Lymphocytes # (Manual) Monocytes # (Manual) Eosinophils # (Manual) Basophils # (Manual) PT INR APTT ABG pH ABG pO2 ABG HCO3 ABG O2 Saturation ABG Base Excess ABG Hemoglobin Oxyhemoglobin Sodium Potassium Chloride Carbon Dioxide BUN Creatinine Glucose POC Glucose 135 H 119 H 121 H Lactic Acid Calcium Ionized Calcium Phosphorus Magnesium Total Bilirubin AST ALT Alkaline Phosphatase Ammonia Total Creatine Kinase CK-MB (CK-2) CK-MB (CK-2) Rel Index Total Protein Albumin Urine WBC (Auto) Vancomycin Trough Salicylates Acetaminophen Plasma/Serum Alcohol Crossmatch 02/16/20 02/16/20 02/16/20 12:12 18:22 23:51 WBC RBC Hgb Hct MCH RDW Plt Count Lymph % (Auto) [place] % (Auto) [place] # Baso # Seg Neutrophils % Seg Neuts % (Manual) Lymphocytes % (Manual) Monocytes % (Manual) Seg Neutrophils # Seg Neutrophils # Man Lymphocytes # (Manual) Monocytes # (Manual) Eosinophils # (Manual) Basophils # (Manual) PT INR APTT ABG pH ABG pO2 ABG HCO3 ABG O2 Saturation ABG Base Excess ABG Hemoglobin Oxyhemoglobin Sodium Potassium Chloride Carbon Dioxide BUN Creatinine Glucose POC Glucose 107 H 106 H 128 H Lactic Acid Calcium Ionized Calcium Phosphorus Magnesium Total Bilirubin AST ALT Alkaline Phosphatase Ammonia Total Creatine Kinase CK-MB (CK-2) CK-MB (CK-2) Rel Index Total Protein Albumin Urine WBC (Auto) Vancomycin Trough Salicylates Acetaminophen Plasma/Serum Alcohol Crossmatch 02/17/20 02/17/20 02/17/20 05:50 07:57 07:57 WBC 12.6 H RBC 3.52 L Hgb Hct MCH RDW 15.3 H Plt Count 643 H Lymph % (Auto) [place] % (Auto) 8.0 H [place] # 1.0 H Baso # Seg Neutrophils % Seg Neuts % (Manual) Lymphocytes % (Manual) Monocytes % (Manual) Seg Neutrophils # 8.5 H Seg Neutrophils # Man Lymphocytes # (Manual) Monocytes # (Manual) Eosinophils # (Manual) Basophils # (Manual) PT INR APTT ABG pH ABG pO2 ABG HCO3 ABG O2 Saturation ABG Base Excess ABG Hemoglobin Oxyhemoglobin Sodium Potassium Chloride 96.9 L Carbon Dioxide BUN 21 H Creatinine 0.4 L Glucose 113 H POC Glucose 116 H Lactic Acid Calcium 10.5 H Ionized Calcium Phosphorus Magnesium Total Bilirubin AST ALT Alkaline Phosphatase Ammonia Total Creatine Kinase CK-MB (CK-2) CK-MB (CK-2) Rel Index Total Protein Albumin Urine WBC (Auto) Vancomycin Trough Salicylates Acetaminophen Plasma/Serum Alcohol Crossmatch 02/17/20 02/17/20 02/18/20 12:05 18:16 00:13 WBC RBC Hgb Hct MCH RDW Plt Count Lymph % (Auto) [place] % (Auto) [place] # Baso # Seg Neutrophils % Seg Neuts % (Manual) Lymphocytes % (Manual) Monocytes % (Manual) Seg Neutrophils # Seg Neutrophils # Man Lymphocytes # (Manual) Monocytes # (Manual) Eosinophils # (Manual) Basophils # (Manual) PT INR APTT ABG pH ABG pO2 ABG HCO3 ABG O2 Saturation ABG Base Excess ABG Hemoglobin Oxyhemoglobin Sodium Potassium Chloride Carbon Dioxide BUN Creatinine Glucose POC Glucose 139 H 127 H 144 H Lactic Acid Calcium Ionized Calcium Phosphorus Magnesium Total Bilirubin AST ALT Alkaline Phosphatase Ammonia Total Creatine Kinase CK-MB (CK-2) CK-MB (CK-2) Rel Index Total Protein Albumin Urine WBC (Auto) Vancomycin Trough Salicylates Acetaminophen Plasma/Serum Alcohol Crossmatch 02/18/20 02/18/20 02/19/20 17:41 23:28 05:17 WBC RBC Hgb Hct MCH RDW Plt Count Lymph % (Auto) [place] % (Auto) [place] # Baso # Seg Neutrophils % Seg Neuts % (Manual) Lymphocytes % (Manual) Monocytes % (Manual) Seg Neutrophils # Seg Neutrophils # Man Lymphocytes # (Manual) Monocytes # (Manual) Eosinophils # (Manual) Basophils # (Manual) PT INR APTT ABG pH ABG pO2 ABG HCO3 ABG O2 Saturation ABG Base Excess ABG Hemoglobin Oxyhemoglobin Sodium Potassium Chloride Carbon Dioxide BUN Creatinine Glucose POC Glucose 118 H 166 H 116 H Lactic Acid Calcium Ionized Calcium Phosphorus Magnesium Total Bilirubin AST ALT Alkaline Phosphatase Ammonia Total Creatine Kinase CK-MB (CK-2) CK-MB (CK-2) Rel Index Total Protein Albumin Urine WBC (Auto) Vancomycin Trough Salicylates Acetaminophen Plasma/Serum Alcohol Crossmatch 02/19/20 02/19/2020 12:33 17:02 00:12 WBC RBC Hgb Hct MCH RDW Plt Count Lymph % (Auto) [place] % (Auto) [place] # Baso # Seg Neutrophils % Seg Neuts % (Manual) Lymphocytes % (Manual) Monocytes % (Manual) Seg Neutrophils # Seg Neutrophils # Man Lymphocytes # (Manual) Monocytes # (Manual) Eosinophils # (Manual) Basophils # (Manual) PT INR APTT ABG pH ABG pO2 ABG HCO3 ABG O2 Saturation ABG Base Excess ABG Hemoglobin Oxyhemoglobin Sodium Potassium Chloride Carbon Dioxide BUN Creatinine Glucose POC Glucose 115 H 108 H 153 H Lactic Acid Calcium Ionized Calcium Phosphorus Magnesium Total Bilirubin AST ALT Alkaline Phosphatase Ammonia Total Creatine Kinase CK-MB (CK-2) CK-MB (CK-2) Rel Index Total Protein Albumin Urine WBC (Auto) Vancomycin Trough Salicylates Acetaminophen Plasma/Serum Alcohol Crossmatch 02/20/20 02/20/20 02/21/20 12:00 23:13 05:07 WBC RBC Hgb Hct MCH RDW Plt Count Lymph % (Auto) [place] % (Auto) [place] # Baso # Seg Neutrophils % Seg Neuts % (Manual) Lymphocytes % (Manual) Monocytes % (Manual) Seg Neutrophils # Seg Neutrophils # Man Lymphocytes # (Manual) Monocytes # (Manual) Eosinophils # (Manual) Basophils # (Manual) PT INR APTT ABG pH ABG pO2 ABG HCO3 ABG O2 Saturation ABG Base Excess ABG Hemoglobin Oxyhemoglobin Sodium Potassium Chloride Carbon Dioxide BUN Creatinine Glucose POC Glucose 171 H 129 H 116 H Lactic Acid Calcium Ionized Calcium Phosphorus Magnesium Total Bilirubin AST ALT Alkaline Phosphatase Ammonia Total Creatine Kinase CK-MB (CK-2) CK-MB (CK-2) Rel Index Total Protein Albumin Urine WBC (Auto) Vancomycin Trough Salicylates Acetaminophen Plasma/Serum Alcohol Crossmatch 02/21/20 02/22/20 02/22/20 12:15 00:42 06:30 WBC RBC Hgb Hct MCH RDW Plt Count Lymph % (Auto) [place] % (Auto) [place] # Baso # Seg Neutrophils % Seg Neuts % (Manual) Lymphocytes % (Manual) Monocytes % (Manual) Seg Neutrophils # Seg Neutrophils # Man Lymphocytes # (Manual) Monocytes # (Manual) Eosinophils # (Manual) Basophils # (Manual) PT INR APTT ABG pH ABG pO2 ABG HCO3 ABG O2 Saturation ABG Base Excess ABG Hemoglobin Oxyhemoglobin Sodium Potassium Chloride Carbon Dioxide BUN Creatinine Glucose POC Glucose 124 H 142 H 117 H Lactic Acid Calcium Ionized Calcium Phosphorus Magnesium Total Bilirubin AST ALT Alkaline Phosphatase Ammonia Total Creatine Kinase CK-MB (CK-2) CK-MB (CK-2) Rel Index Total Protein Albumin Urine WBC (Auto) Vancomycin Trough Salicylates Acetaminophen Plasma/Serum Alcohol Crossmatch 02/22/20 02/22/20 02/23/20 12:20 17:55 12:46 WBC RBC Hgb Hct MCH RDW Plt Count Lymph % (Auto) [place] % (Auto) [place] # Baso # Seg Neutrophils % Seg Neuts % (Manual) Lymphocytes % (Manual) Monocytes % (Manual) Seg Neutrophils # Seg Neutrophils # Man Lymphocytes # (Manual) Monocytes # (Manual) Eosinophils # (Manual) Basophils # (Manual) PT INR APTT ABG pH ABG pO2 ABG HCO3 ABG O2 Saturation ABG Base Excess ABG Hemoglobin Oxyhemoglobin Sodium Potassium Chloride Carbon Dioxide BUN Creatinine Glucose POC Glucose 121 H 157 H 112 H Lactic Acid Calcium Ionized Calcium Phosphorus Magnesium Total Bilirubin AST ALT Alkaline Phosphatase Ammonia Total Creatine Kinase CK-MB (CK-2) CK-MB (CK-2) Rel Index Total Protein Albumin Urine WBC (Auto) Vancomycin Trough Salicylates Acetaminophen Plasma/Serum Alcohol Crossmatch 02/23/20 02/24/20 02/24/20 16:47 00:38 07:00 WBC RBC Hgb Hct MCH RDW Plt Count Lymph % (Auto) [place] % (Auto) [place] # Baso # Seg Neutrophils % Seg Neuts % (Manual) Lymphocytes % (Manual) Monocytes % (Manual) Seg Neutrophils # Seg Neutrophils # Man Lymphocytes # (Manual) Monocytes # (Manual) Eosinophils # (Manual) Basophils # (Manual) PT INR APTT ABG pH ABG pO2 ABG HCO3 ABG O2 Saturation ABG Base Excess ABG Hemoglobin Oxyhemoglobin Sodium Potassium Chloride Carbon Dioxide BUN Creatinine Glucose POC Glucose 142 H 138 H 118 H Lactic Acid Calcium Ionized Calcium Phosphorus Magnesium Total Bilirubin AST ALT Alkaline Phosphatase Ammonia Total Creatine Kinase CK-MB (CK-2) CK-MB (CK-2) Rel Index Total Protein Albumin Urine WBC (Auto) Vancomycin Trough Salicylates Acetaminophen Plasma/Serum Alcohol Crossmatch 02/24/20 02/24/20 02/25/20 11:41 18:33 18:24 WBC RBC Hgb Hct MCH RDW Plt Count Lymph % (Auto) [place] % (Auto) [place] # Baso # Seg Neutrophils % Seg Neuts % (Manual) Lymphocytes % (Manual) Monocytes % (Manual) Seg Neutrophils # Seg Neutrophils # Man Lymphocytes # (Manual) Monocytes # (Manual) Eosinophils # (Manual) Basophils # (Manual) PT INR APTT ABG pH ABG pO2 ABG HCO3 ABG O2 Saturation ABG Base Excess ABG Hemoglobin Oxyhemoglobin Sodium Potassium Chloride Carbon Dioxide BUN Creatinine Glucose POC Glucose 152 H 126 H 120 H Lactic Acid Calcium Ionized Calcium Phosphorus Magnesium Total Bilirubin AST ALT Alkaline Phosphatase Ammonia Total Creatine Kinase CK-MB (CK-2) CK-MB (CK-2) Rel Index Total Protein Albumin Urine WBC (Auto) Vancomycin Trough Salicylates Acetaminophen Plasma/Serum Alcohol Crossmatch 02/25/20 02/26/20 02/26/20 23:40 05:46 11:32 WBC RBC Hgb Hct MCH RDW Plt Count Lymph % (Auto) [place] % (Auto) [place] # Baso # Seg Neutrophils % Seg Neuts % (Manual) Lymphocytes % (Manual) Monocytes % (Manual) Seg Neutrophils # Seg Neutrophils # Man Lymphocytes # (Manual) Monocytes # (Manual) Eosinophils # (Manual) Basophils # (Manual) PT INR APTT ABG pH ABG pO2 ABG HCO3 ABG O2 Saturation ABG Base Excess ABG Hemoglobin Oxyhemoglobin Sodium Potassium Chloride Carbon Dioxide BUN Creatinine Glucose POC Glucose 114 H 113 H 106 H Lactic Acid Calcium Ionized Calcium Phosphorus Magnesium Total Bilirubin AST ALT Alkaline Phosphatase Ammonia Total Creatine Kinase CK-MB (CK-2) CK-MB (CK-2) Rel Index Total Protein Albumin Urine WBC (Auto) Vancomycin Trough Salicylates Acetaminophen Plasma/Serum Alcohol Crossmatch 02/26/20 02/27/20 02/27/20 16:14 11:53 17:54 WBC RBC Hgb Hct MCH RDW Plt Count Lymph % (Auto) [place] % (Auto) [place] # Baso # Seg Neutrophils % Seg Neuts % (Manual) Lymphocytes % (Manual) Monocytes % (Manual) Seg Neutrophils # Seg Neutrophils # Man Lymphocytes # (Manual) Monocytes # (Manual) Eosinophils # (Manual) Basophils # (Manual) PT INR APTT ABG pH ABG pO2 ABG HCO3 ABG O2 Saturation ABG Base Excess ABG Hemoglobin Oxyhemoglobin Sodium Potassium Chloride Carbon Dioxide BUN Creatinine Glucose POC Glucose 123 H 134 H 119 H Lactic Acid Calcium Ionized Calcium Phosphorus Magnesium Total Bilirubin AST ALT Alkaline Phosphatase Ammonia Total Creatine Kinase CK-MB (CK-2) CK-MB (CK-2) Rel Index Total Protein Albumin Urine WBC (Auto) Vancomycin Trough Salicylates Acetaminophen Plasma/Serum Alcohol Crossmatch 02/27/20 02/28/20 02/28/20 23:51 03:40 03:40 WBC RBC 3.58 L Hgb Hct MCH RDW Plt Count 575 H Lymph % (Auto) [place] % (Auto) 9.4 H [place] # 1.0 H Baso # Seg Neutrophils % Seg Neuts % (Manual) Lymphocytes % (Manual) Monocytes % (Manual) Seg Neutrophils # Seg Neutrophils # Man Lymphocytes # (Manual) Monocytes # (Manual) Eosinophils # (Manual) Basophils # (Manual) PT INR APTT ABG pH ABG pO2 ABG HCO3 ABG O2 Saturation ABG Base Excess ABG Hemoglobin Oxyhemoglobin Sodium Potassium Chloride Carbon Dioxide BUN 23 H Creatinine 0.5 L Glucose 114 H POC Glucose 138 H Lactic Acid Calcium Ionized Calcium Phosphorus Magnesium Total Bilirubin AST ALT Alkaline Phosphatase Ammonia Total Creatine Kinase CK-MB (CK-2) CK-MB (CK-2) Rel Index Total Protein Albumin Urine WBC (Auto) Vancomycin Trough Salicylates Acetaminophen Plasma/Serum Alcohol Crossmatch 02/28/20 02/28/20 02/29/20 12:37 18:38 05:50 WBC RBC Hgb Hct MCH RDW Plt Count Lymph % (Auto) [place] % (Auto) [place] # Baso # Seg Neutrophils % Seg Neuts % (Manual) Lymphocytes % (Manual) Monocytes % (Manual) Seg Neutrophils # Seg Neutrophils # Man Lymphocytes # (Manual) Monocytes # (Manual) Eosinophils # (Manual) Basophils # (Manual) PT INR APTT ABG pH ABG pO2 ABG HCO3 ABG O2 Saturation ABG Base Excess ABG Hemoglobin Oxyhemoglobin Sodium Potassium Chloride Carbon Dioxide BUN Creatinine Glucose POC Glucose 115 H 120 H 114 H Lactic Acid Calcium Ionized Calcium Phosphorus Magnesium Total Bilirubin AST ALT Alkaline Phosphatase Ammonia Total Creatine Kinase CK-MB (CK-2) CK-MB (CK-2) Rel Index Total Protein Albumin Urine WBC (Auto) Vancomycin Trough Salicylates Acetaminophen Plasma/Serum Alcohol Crossmatch 02/29/20 02/29/20 03/01/20 18:53 23:10 06:53 WBC RBC Hgb Hct MCH RDW Plt Count Lymph % (Auto) [place] % (Auto) [place] # Baso # Seg Neutrophils % Seg Neuts % (Manual) Lymphocytes % (Manual) Monocytes % (Manual) Seg Neutrophils # Seg Neutrophils # Man Lymphocytes # (Manual) Monocytes # (Manual) Eosinophils # (Manual) Basophils # (Manual) PT INR APTT ABG pH ABG pO2 ABG HCO3 ABG O2 Saturation ABG Base Excess ABG Hemoglobin Oxyhemoglobin Sodium Potassium Chloride Carbon Dioxide BUN Creatinine Glucose POC Glucose 112 H 147 H 131 H Lactic Acid Calcium Ionized Calcium Phosphorus Magnesium Total Bilirubin AST ALT Alkaline Phosphatase Ammonia Total Creatine Kinase CK-MB (CK-2) CK-MB (CK-2) Rel Index Total Protein Albumin Urine WBC (Auto) Vancomycin Trough Salicylates Acetaminophen Plasma/Serum Alcohol Crossmatch 03/01/20 03/01/20 03/02/20 17:31 18:35 00:10 WBC RBC Hgb Hct MCH RDW Plt Count Lymph % (Auto) [place] % (Auto) [place] # Baso # Seg Neutrophils % Seg Neuts % (Manual) Lymphocytes % (Manual) Monocytes % (Manual) Seg Neutrophils # Seg Neutrophils # Man Lymphocytes # (Manual) Monocytes # (Manual) Eosinophils # (Manual) Basophils # (Manual) PT INR APTT ABG pH ABG pO2 ABG HCO3 ABG O2 Saturation ABG Base Excess ABG Hemoglobin Oxyhemoglobin Sodium Potassium Chloride Carbon Dioxide BUN Creatinine Glucose POC Glucose 61 L 129 H 117 H Lactic Acid Calcium Ionized Calcium Phosphorus Magnesium Total Bilirubin AST ALT Alkaline Phosphatase Ammonia Total Creatine Kinase CK-MB (CK-2) CK-MB (CK-2) Rel Index Total Protein Albumin Urine WBC (Auto) Vancomycin Trough Salicylates Acetaminophen Plasma/Serum Alcohol Crossmatch 03/02/20 03/02/20 03/02/20 06:56 12:02 18:42 WBC RBC Hgb Hct MCH RDW Plt Count Lymph % (Auto) [place] % (Auto) [place] # Baso # Seg Neutrophils % Seg Neuts % (Manual) Lymphocytes % (Manual) Monocytes % (Manual) Seg Neutrophils # Seg Neutrophils # Man Lymphocytes # (Manual) Monocytes # (Manual) Eosinophils # (Manual) Basophils # (Manual) PT INR APTT ABG pH ABG pO2 ABG HCO3 ABG O2 Saturation ABG Base Excess ABG Hemoglobin Oxyhemoglobin Sodium Potassium Chloride Carbon Dioxide BUN Creatinine Glucose POC Glucose 125 H 111 H 126 H Lactic Acid Calcium Ionized Calcium Phosphorus Magnesium Total Bilirubin AST ALT Alkaline Phosphatase Ammonia Total Creatine Kinase CK-MB (CK-2) CK-MB (CK-2) Rel Index Total Protein Albumin Urine WBC (Auto) Vancomycin Trough Salicylates Acetaminophen Plasma/Serum Alcohol Crossmatch 03/03/20 03/03/20 03/03/20 00:18 06:11 11:50 WBC RBC Hgb Hct MCH RDW Plt Count Lymph % (Auto) [place] % (Auto) [place] # Baso # Seg Neutrophils % Seg Neuts % (Manual) Lymphocytes % (Manual) Monocytes % (Manual) Seg Neutrophils # Seg Neutrophils # Man Lymphocytes # (Manual) Monocytes # (Manual) Eosinophils # (Manual) Basophils # (Manual) PT INR APTT ABG pH ABG pO2 ABG HCO3 ABG O2 Saturation ABG Base Excess ABG Hemoglobin Oxyhemoglobin Sodium Potassium Chloride Carbon Dioxide BUN Creatinine Glucose POC Glucose 139 H 155 H 118 H Lactic Acid Calcium Ionized Calcium Phosphorus Magnesium Total Bilirubin AST ALT Alkaline Phosphatase Ammonia Total Creatine Kinase CK-MB (CK-2) CK-MB (CK-2) Rel Index Total Protein Albumin Urine WBC (Auto) Vancomycin Trough Salicylates Acetaminophen Plasma/Serum Alcohol Crossmatch 03/03/20 03/03/20 03/04/20 18:09 23:46 05:37 WBC RBC Hgb Hct MCH RDW Plt Count Lymph % (Auto) [place] % (Auto) [place] # Baso # Seg Neutrophils % Seg Neuts % (Manual) Lymphocytes % (Manual) Monocytes % (Manual) Seg Neutrophils # Seg Neutrophils # Man Lymphocytes # (Manual) Monocytes # (Manual) Eosinophils # (Manual) Basophils # (Manual) PT INR APTT ABG pH ABG pO2 ABG HCO3 ABG O2 Saturation ABG Base Excess ABG Hemoglobin Oxyhemoglobin Sodium Potassium Chloride Carbon Dioxide BUN Creatinine Glucose POC Glucose 109 H 132 H 111 H Lactic Acid Calcium Ionized Calcium Phosphorus Magnesium Total Bilirubin AST ALT Alkaline Phosphatase Ammonia Total Creatine Kinase CK-MB (CK-2) CK-MB (CK-2) Rel Index Total Protein Albumin Urine WBC (Auto) Vancomycin Trough Salicylates Acetaminophen Plasma/Serum Alcohol Crossmatch 03/04/20 03/04/20 03/05/20 11:38 17:54 00:14 WBC RBC Hgb Hct MCH RDW Plt Count Lymph % (Auto) [place] % (Auto) [place] # Baso # Seg Neutrophils % Seg Neuts % (Manual) Lymphocytes % (Manual) Monocytes % (Manual) Seg Neutrophils # Seg Neutrophils # Man Lymphocytes # (Manual) Monocytes # (Manual) Eosinophils # (Manual) Basophils # (Manual) PT INR APTT ABG pH ABG pO2 ABG HCO3 ABG O2 Saturation ABG Base Excess ABG Hemoglobin Oxyhemoglobin Sodium Potassium Chloride Carbon Dioxide BUN Creatinine Glucose POC Glucose 138 H 118 H 134 H Lactic Acid Calcium Ionized Calcium Phosphorus Magnesium Total Bilirubin AST ALT Alkaline Phosphatase Ammonia Total Creatine Kinase CK-MB (CK-2) CK-MB (CK-2) Rel Index Total Protein Albumin Urine WBC (Auto) Vancomycin Trough Salicylates Acetaminophen Plasma/Serum Alcohol Crossmatch 03/06/20 03/06/20 03/06/20 03:37 03:37 06:29 WBC RBC Hgb Hct MCH RDW Plt Count 550 H Lymph % (Auto) [place] % (Auto) 9.1 H [place] # Baso # Seg Neutrophils % Seg Neuts % (Manual) Lymphocytes % (Manual) Monocytes % (Manual) Seg Neutrophils # Seg Neutrophils # Man Lymphocytes # (Manual) Monocytes # (Manual) Eosinophils # (Manual) Basophils # (Manual) PT INR APTT ABG pH ABG pO2 ABG HCO3 ABG O2 Saturation ABG Base Excess ABG Hemoglobin Oxyhemoglobin Sodium Potassium Chloride Carbon Dioxide BUN 26 H Creatinine 0.5 L Glucose POC Glucose 128 H Lactic Acid Calcium 10.4 H Ionized Calcium Phosphorus Magnesium Total Bilirubin AST ALT Alkaline Phosphatase Ammonia Total Creatine Kinase CK-MB (CK-2) CK-MB (CK-2) Rel Index Total Protein Albumin Urine WBC (Auto) Vancomycin Trough Salicylates Acetaminophen Plasma/Serum Alcohol Crossmatch 03/06/20 03/07/20 03/07/20 17:47 06:37 12:37 WBC RBC Hgb Hct MCH RDW Plt Count Lymph % (Auto) [place] % (Auto) [place] # Baso # Seg Neutrophils % Seg Neuts % (Manual) Lymphocytes % (Manual) Monocytes % (Manual) Seg Neutrophils # Seg Neutrophils # Man Lymphocytes # (Manual) Monocytes # (Manual) Eosinophils # (Manual) Basophils # (Manual) PT INR APTT ABG pH ABG pO2 ABG HCO3 ABG O2 Saturation ABG Base Excess ABG Hemoglobin Oxyhemoglobin Sodium Potassium Chloride Carbon Dioxide BUN Creatinine Glucose POC Glucose 120 H 113 H 118 H Lactic Acid Calcium Ionized Calcium Phosphorus Magnesium Total Bilirubin AST ALT Alkaline Phosphatase Ammonia Total Creatine Kinase CK-MB (CK-2) CK-MB (CK-2) Rel Index Total Protein Albumin Urine WBC (Auto) Vancomycin Trough Salicylates Acetaminophen Plasma/Serum Alcohol Crossmatch 03/07/20 03/08/20 03/08/20 16:41 00:55 06:25 WBC RBC Hgb Hct MCH RDW Plt Count Lymph % (Auto) [place] % (Auto) [place] # Baso # Seg Neutrophils % Seg Neuts % (Manual) Lymphocytes % (Manual) Monocytes % (Manual) Seg Neutrophils # Seg Neutrophils # Man Lymphocytes # (Manual) Monocytes # (Manual) Eosinophils # (Manual) Basophils # (Manual) PT INR APTT ABG pH ABG pO2 ABG HCO3 ABG O2 Saturation ABG Base Excess ABG Hemoglobin Oxyhemoglobin Sodium Potassium Chloride Carbon Dioxide BUN Creatinine Glucose POC Glucose 108 H 139 H 127 H Lactic Acid Calcium Ionized Calcium Phosphorus Magnesium Total Bilirubin AST ALT Alkaline Phosphatase Ammonia Total Creatine Kinase CK-MB (CK-2) CK-MB (CK-2) Rel Index Total Protein Albumin Urine WBC (Auto) Vancomycin Trough Salicylates Acetaminophen Plasma/Serum Alcohol Crossmatch 03/08/20 03/08/20 03/08/20 12:49 13:25 17:13 WBC RBC Hgb Hct MCH RDW Plt Count Lymph % (Auto) [place] % (Auto) [place] # Baso # Seg Neutrophils % Seg Neuts % (Manual) Lymphocytes % (Manual) Monocytes % (Manual) Seg Neutrophils # Seg Neutrophils # Man Lymphocytes # (Manual) Monocytes # (Manual) Eosinophils # (Manual) Basophils # (Manual) PT INR APTT ABG pH ABG pO2 71.1 L ABG HCO3 26.2 H ABG O2 Saturation ABG Base Excess ABG Hemoglobin 8.2 L Oxyhemoglobin 94.8 L Sodium Potassium Chloride Carbon Dioxide BUN Creatinine Glucose POC Glucose 127 H 147 H Lactic Acid Calcium Ionized Calcium Phosphorus Magnesium Total Bilirubin AST ALT Alkaline Phosphatase Ammonia Total Creatine Kinase CK-MB (CK-2) CK-MB (CK-2) Rel Index Total Protein Albumin Urine WBC (Auto) Vancomycin Trough Salicylates Acetaminophen Plasma/Serum Alcohol Crossmatch 03/09/20 03/09/20 03/09/20 06:28 08:36 23:58 WBC RBC Hgb Hct MCH RDW Plt Count Lymph % (Auto) [place] % (Auto) [place] # Baso # Seg Neutrophils % Seg Neuts % (Manual) Lymphocytes % (Manual) Monocytes % (Manual) Seg Neutrophils # Seg Neutrophils # Man Lymphocytes # (Manual) Monocytes # (Manual) Eosinophils # (Manual) Basophils # (Manual) PT INR APTT ABG pH ABG pO2 ABG HCO3 ABG O2 Saturation ABG Base Excess ABG Hemoglobin Oxyhemoglobin Sodium Potassium Chloride Carbon Dioxide BUN Creatinine Glucose POC Glucose 139 H 167 H 122 H Lactic Acid Calcium Ionized Calcium Phosphorus Magnesium Total Bilirubin AST ALT Alkaline Phosphatase Ammonia Total Creatine Kinase CK-MB (CK-2) CK-MB (CK-2) Rel Index Total Protein Albumin Urine WBC (Auto) Vancomycin Trough Salicylates Acetaminophen Plasma/Serum Alcohol Crossmatch 03/10/20 03/10/20 03/11/20 06:32 23:27 06:23 WBC RBC Hgb Hct MCH RDW Plt Count Lymph % (Auto) [place] % (Auto) [place] # Baso # Seg Neutrophils % Seg Neuts % (Manual) Lymphocytes % (Manual) Monocytes % (Manual) Seg Neutrophils # Seg Neutrophils # Man Lymphocytes # (Manual) Monocytes # (Manual) Eosinophils # (Manual) Basophils # (Manual) PT INR APTT ABG pH ABG pO2 ABG HCO3 ABG O2 Saturation ABG Base Excess ABG Hemoglobin Oxyhemoglobin Sodium Potassium Chloride Carbon Dioxide BUN Creatinine Glucose POC Glucose 165 H 115 H 139 H Lactic Acid Calcium Ionized Calcium Phosphorus Magnesium Total Bilirubin AST ALT Alkaline Phosphatase Ammonia Total Creatine Kinase CK-MB (CK-2) CK-MB (CK-2) Rel Index Total Protein Albumin Urine WBC (Auto) Vancomycin Trough Salicylates Acetaminophen Plasma/Serum Alcohol Crossmatch 03/11/20 03/11/20 03/12/20 12:29 18:02 04:53 WBC RBC Hgb Hct MCH RDW Plt Count 625 H Lymph % (Auto) [place] % (Auto) [place] # Baso # Seg Neutrophils % Seg Neuts % (Manual) Lymphocytes % (Manual) Monocytes % (Manual) Seg Neutrophils # Seg Neutrophils # Man Lymphocytes # (Manual) Monocytes # (Manual) Eosinophils # (Manual) Basophils # (Manual) PT INR APTT ABG pH ABG pO2 ABG HCO3 ABG O2 Saturation ABG Base Excess ABG Hemoglobin Oxyhemoglobin Sodium Potassium Chloride Carbon Dioxide BUN Creatinine Glucose POC Glucose 164 H 113 H Lactic Acid Calcium Ionized Calcium Phosphorus Magnesium Total Bilirubin AST ALT Alkaline Phosphatase Ammonia Total Creatine Kinase CK-MB (CK-2) CK-MB (CK-2) Rel Index Total Protein Albumin Urine WBC (Auto) Vancomycin Trough Salicylates Acetaminophen Plasma/Serum Alcohol Crossmatch 03/12/20 03/12/20 03/12/20 04:53 06:26 12:38 WBC RBC Hgb Hct MCH RDW Plt Count Lymph % (Auto) [place] % (Auto) [place] # Baso # Seg Neutrophils % Seg Neuts % (Manual) Lymphocytes % (Manual) Monocytes % (Manual) Seg Neutrophils # Seg Neutrophils # Man Lymphocytes # (Manual) Monocytes # (Manual) Eosinophils # (Manual) Basophils # (Manual) PT INR APTT ABG pH ABG pO2 ABG HCO3 ABG O2 Saturation ABG Base Excess ABG Hemoglobin Oxyhemoglobin Sodium Potassium 5.3 H Chloride Carbon Dioxide BUN 34 H Creatinine Glucose 159 H POC Glucose 149 H 130 H Lactic Acid Calcium 10.7 H Ionized Calcium Phosphorus Magnesium Total Bilirubin AST ALT Alkaline Phosphatase Ammonia Total Creatine Kinase CK-MB (CK-2) CK-MB (CK-2) Rel Index Total Protein Albumin Urine WBC (Auto) Vancomycin Trough Salicylates Acetaminophen Plasma/Serum Alcohol Crossmatch 03/13/20 03/13/20 03/13/20 03:50 06:12 18:11 WBC RBC Hgb Hct MCH RDW Plt Count Lymph % (Auto) [place] % (Auto) [place] # Baso # Seg Neutrophils % Seg Neuts % (Manual) Lymphocytes % (Manual) Monocytes % (Manual) Seg Neutrophils # Seg Neutrophils # Man Lymphocytes # (Manual) Monocytes # (Manual) Eosinophils # (Manual) Basophils # (Manual) PT INR APTT ABG pH ABG pO2 ABG HCO3 ABG O2 Saturation ABG Base Excess ABG Hemoglobin Oxyhemoglobin Sodium Potassium Chloride Carbon Dioxide 20 L BUN 30 H Creatinine 0.6 L Glucose 153 H POC Glucose 124 H 111 H Lactic Acid Calcium Ionized Calcium Phosphorus Magnesium Total Bilirubin AST ALT Alkaline Phosphatase Ammonia Total Creatine Kinase CK-MB (CK-2) CK-MB (CK-2) Rel Index Total Protein Albumin Urine WBC (Auto) Vancomycin Trough Salicylates Acetaminophen Plasma/Serum Alcohol Crossmatch 03/14/20 03/14/20 03/15/20 12:01 15:40 00:02 WBC RBC Hgb Hct MCH RDW Plt Count Lymph % (Auto) [place] % (Auto) [place] # Baso # Seg Neutrophils % Seg Neuts % (Manual) Lymphocytes % (Manual) Monocytes % (Manual) Seg Neutrophils # Seg Neutrophils # Man Lymphocytes # (Manual) Monocytes # (Manual) Eosinophils # (Manual) Basophils # (Manual) PT INR APTT ABG pH ABG pO2 ABG HCO3 ABG O2 Saturation ABG Base Excess ABG Hemoglobin Oxyhemoglobin Sodium Potassium Chloride Carbon Dioxide BUN Creatinine Glucose POC Glucose 116 H 125 H 143 H Lactic Acid Calcium Ionized Calcium Phosphorus Magnesium Total Bilirubin AST ALT Alkaline Phosphatase Ammonia Total Creatine Kinase CK-MB (CK-2) CK-MB (CK-2) Rel Index Total Protein Albumin Urine WBC (Auto) Vancomycin Trough Salicylates Acetaminophen Plasma/Serum Alcohol Crossmatch 03/15/20 03/15/20 03/16/20 12:03 18:14 12:14 WBC RBC Hgb Hct MCH RDW Plt Count Lymph % (Auto) [place] % (Auto) [place] # Baso # Seg Neutrophils % Seg Neuts % (Manual) Lymphocytes % (Manual) Monocytes % (Manual) Seg Neutrophils # Seg Neutrophils # Man Lymphocytes # (Manual) Monocytes # (Manual) Eosinophils # (Manual) Basophils # (Manual) PT INR APTT ABG pH ABG pO2 ABG HCO3 ABG O2 Saturation ABG Base Excess ABG Hemoglobin Oxyhemoglobin Sodium Potassium Chloride Carbon Dioxide BUN Creatinine Glucose POC Glucose 106 H 107 H 107 H Lactic Acid Calcium Ionized Calcium Phosphorus Magnesium Total Bilirubin AST ALT Alkaline Phosphatase Ammonia Total Creatine Kinase CK-MB (CK-2) CK-MB (CK-2) Rel Index Total Protein Albumin Urine WBC (Auto) Vancomycin Trough Salicylates Acetaminophen Plasma/Serum Alcohol Crossmatch 03/16/20 03/17/20 03/17/20 18:30 05:44 12:09 WBC RBC Hgb Hct MCH RDW Plt Count Lymph % (Auto) [place] % (Auto) [place] # Baso # Seg Neutrophils % Seg Neuts % (Manual) Lymphocytes % (Manual) Monocytes % (Manual) Seg Neutrophils # Seg Neutrophils # Man Lymphocytes # (Manual) Monocytes # (Manual) Eosinophils # (Manual) Basophils # (Manual) PT INR APTT ABG pH ABG pO2 ABG HCO3 ABG O2 Saturation ABG Base Excess ABG Hemoglobin Oxyhemoglobin Sodium Potassium Chloride Carbon Dioxide BUN Creatinine Glucose POC Glucose 128 H 114 H 120 H Lactic Acid Calcium Ionized Calcium Phosphorus Magnesium Total Bilirubin AST ALT Alkaline Phosphatase Ammonia Total Creatine Kinase CK-MB (CK-2) CK-MB (CK-2) Rel Index Total Protein Albumin Urine WBC (Auto) Vancomycin Trough Salicylates Acetaminophen Plasma/Serum Alcohol Crossmatch 03/17/20 03/17/20 03/18/20 16:51 23:36 07:07 WBC RBC Hgb Hct MCH RDW Plt Count Lymph % (Auto) [place] % (Auto) [place] # Baso # Seg Neutrophils % Seg Neuts % (Manual) Lymphocytes % (Manual) Monocytes % (Manual) Seg Neutrophils # Seg Neutrophils # Man Lymphocytes # (Manual) Monocytes # (Manual) Eosinophils # (Manual) Basophils # (Manual) PT INR APTT ABG pH ABG pO2 ABG HCO3 ABG O2 Saturation ABG Base Excess ABG Hemoglobin Oxyhemoglobin Sodium Potassium Chloride Carbon Dioxide BUN Creatinine Glucose POC Glucose 108 H 145 H 116 H Lactic Acid Calcium Ionized Calcium Phosphorus Magnesium Total Bilirubin AST ALT Alkaline Phosphatase Ammonia Total Creatine Kinase CK-MB (CK-2) CK-MB (CK-2) Rel Index Total Protein Albumin Urine WBC (Auto) Vancomycin Trough Salicylates Acetaminophen Plasma/Serum Alcohol Crossmatch 03/18/20 03/19/20 03/19/20 18:11 06:09 11:49 WBC RBC Hgb Hct MCH RDW Plt Count Lymph % (Auto) [place] % (Auto) [place] # Baso # Seg Neutrophils % Seg Neuts % (Manual) Lymphocytes % (Manual) Monocytes % (Manual) Seg Neutrophils # Seg Neutrophils # Man Lymphocytes # (Manual) Monocytes # (Manual) Eosinophils # (Manual) Basophils # (Manual) PT INR APTT ABG pH ABG pO2 ABG HCO3 ABG O2 Saturation ABG Base Excess ABG Hemoglobin Oxyhemoglobin Sodium Potassium Chloride Carbon Dioxide BUN Creatinine Glucose POC Glucose 106 H 160 H 145 H Lactic Acid Calcium Ionized Calcium Phosphorus Magnesium Total Bilirubin AST ALT Alkaline Phosphatase Ammonia Total Creatine Kinase CK-MB (CK-2) CK-MB (CK-2) Rel Index Total Protein Albumin Urine WBC (Auto) Vancomycin Trough Salicylates Acetaminophen Plasma/Serum Alcohol Crossmatch 03/20/20 03/20/20 03/20/20 01:01 06:14 12:52 WBC RBC Hgb Hct MCH RDW Plt Count Lymph % (Auto) [place] % (Auto) [place] # Baso # Seg Neutrophils % Seg Neuts % (Manual) Lymphocytes % (Manual) Monocytes % (Manual) Seg Neutrophils # Seg Neutrophils # Man Lymphocytes # (Manual) Monocytes # (Manual) Eosinophils # (Manual) Basophils # (Manual) PT INR APTT ABG pH ABG pO2 ABG HCO3 ABG O2 Saturation ABG Base Excess ABG Hemoglobin Oxyhemoglobin Sodium Potassium Chloride Carbon Dioxide BUN Creatinine Glucose POC Glucose 109 H 122 H 106 H Lactic Acid Calcium Ionized Calcium Phosphorus Magnesium Total Bilirubin AST ALT Alkaline Phosphatase Ammonia Total Creatine Kinase CK-MB (CK-2) CK-MB (CK-2) Rel Index Total Protein Albumin Urine WBC (Auto) Vancomycin Trough Salicylates Acetaminophen Plasma/Serum Alcohol Crossmatch 03/20/20 03/21/20 03/21/20 18:56 00:18 05:21 WBC RBC Hgb Hct MCH RDW Plt Count Lymph % (Auto) [place] % (Auto) [place] # Baso # Seg Neutrophils % Seg Neuts % (Manual) Lymphocytes % (Manual) Monocytes % (Manual) Seg Neutrophils # Seg Neutrophils # Man Lymphocytes # (Manual) Monocytes # (Manual) Eosinophils # (Manual) Basophils # (Manual) PT INR APTT ABG pH ABG pO2 ABG HCO3 ABG O2 Saturation ABG Base Excess ABG Hemoglobin Oxyhemoglobin Sodium Potassium Chloride Carbon Dioxide BUN Creatinine Glucose POC Glucose 110 H 140 H 112 H Lactic Acid Calcium Ionized Calcium Phosphorus Magnesium Total Bilirubin AST ALT Alkaline Phosphatase Ammonia Total Creatine Kinase CK-MB (CK-2) CK-MB (CK-2) Rel Index Total Protein Albumin Urine WBC (Auto) Vancomycin Trough Salicylates Acetaminophen Plasma/Serum Alcohol Crossmatch 03/21/20 03/22/20 03/22/20 17:15 01:14 12:08 WBC RBC Hgb Hct MCH RDW Plt Count Lymph % (Auto) [place] % (Auto) [place] # Baso # Seg Neutrophils % Seg Neuts % (Manual) Lymphocytes % (Manual) Monocytes % (Manual) Seg Neutrophils # Seg Neutrophils # Man Lymphocytes # (Manual) Monocytes # (Manual) Eosinophils # (Manual) Basophils # (Manual) PT INR APTT ABG pH ABG pO2 ABG HCO3 ABG O2 Saturation ABG Base Excess ABG Hemoglobin Oxyhemoglobin Sodium Potassium Chloride Carbon Dioxide BUN Creatinine Glucose POC Glucose 158 H 157 H 133 H Lactic Acid Calcium Ionized Calcium Phosphorus Magnesium Total Bilirubin AST ALT Alkaline Phosphatase Ammonia Total Creatine Kinase CK-MB (CK-2) CK-MB (CK-2) Rel Index Total Protein Albumin Urine WBC (Auto) Vancomycin Trough Salicylates Acetaminophen Plasma/Serum Alcohol Crossmatch 03/22/20 03/23/20 03/23/20 16:48 01:00 06:54 WBC RBC Hgb Hct MCH RDW Plt Count Lymph % (Auto) [place] % (Auto) [place] # Baso # Seg Neutrophils % Seg Neuts % (Manual) Lymphocytes % (Manual) Monocytes % (Manual) Seg Neutrophils # Seg Neutrophils # Man Lymphocytes # (Manual) Monocytes # (Manual) Eosinophils # (Manual) Basophils # (Manual) PT INR APTT ABG pH ABG pO2 ABG HCO3 ABG O2 Saturation ABG Base Excess ABG Hemoglobin Oxyhemoglobin Sodium Potassium Chloride Carbon Dioxide BUN Creatinine Glucose POC Glucose 111 H 153 H 129 H Lactic Acid Calcium Ionized Calcium Phosphorus Magnesium Total Bilirubin AST ALT Alkaline Phosphatase Ammonia Total Creatine Kinase CK-MB (CK-2) CK-MB (CK-2) Rel Index Total Protein Albumin Urine WBC (Auto) Vancomycin Trough Salicylates Acetaminophen Plasma/Serum Alcohol Crossmatch 03/23/20 03/23/20 03/23/20 12:08 15:54 23:20 WBC RBC Hgb Hct MCH RDW Plt Count Lymph % (Auto) [place] % (Auto) [place] # Baso # Seg Neutrophils % Seg Neuts % (Manual) Lymphocytes % (Manual) Monocytes % (Manual) Seg Neutrophils # Seg Neutrophils # Man Lymphocytes # (Manual) Monocytes # (Manual) Eosinophils # (Manual) Basophils # (Manual) PT INR APTT ABG pH ABG pO2 ABG HCO3 ABG O2 Saturation ABG Base Excess ABG Hemoglobin Oxyhemoglobin Sodium Potassium Chloride Carbon Dioxide BUN Creatinine Glucose POC Glucose 126 H 142 H 115 H Lactic Acid Calcium Ionized Calcium Phosphorus Magnesium Total Bilirubin AST ALT Alkaline Phosphatase Ammonia Total Creatine Kinase CK-MB (CK-2) CK-MB (CK-2) Rel Index Total Protein Albumin Urine WBC (Auto) Vancomycin Trough Salicylates Acetaminophen Plasma/Serum Alcohol Crossmatch 03/24/20 03/24/20 03/24/20 06:33 12:19 16:46 WBC RBC Hgb Hct MCH RDW Plt Count Lymph % (Auto) [place] % (Auto) [place] # Baso # Seg Neutrophils % Seg Neuts % (Manual) Lymphocytes % (Manual) Monocytes % (Manual) Seg Neutrophils # Seg Neutrophils # Man Lymphocytes # (Manual) Monocytes # (Manual) Eosinophils # (Manual) Basophils # (Manual) PT INR APTT ABG pH ABG pO2 ABG HCO3 ABG O2 Saturation ABG Base Excess ABG Hemoglobin Oxyhemoglobin Sodium Potassium Chloride Carbon Dioxide BUN Creatinine Glucose POC Glucose 122 H 156 H 140 H Lactic Acid Calcium Ionized Calcium Phosphorus Magnesium Total Bilirubin AST ALT Alkaline Phosphatase Ammonia Total Creatine Kinase CK-MB (CK-2) CK-MB (CK-2) Rel Index Total Protein Albumin Urine WBC (Auto) Vancomycin Trough Salicylates Acetaminophen Plasma/Serum Alcohol Crossmatch 03/24/20 03/25/20 03/25/20 23:56 04:28 06:45 WBC RBC Hgb Hct MCH RDW Plt Count Lymph % (Auto) [place] % (Auto) [place] # Baso # Seg Neutrophils % Seg Neuts % (Manual) Lymphocytes % (Manual) Monocytes % (Manual) Seg Neutrophils # Seg Neutrophils # Man Lymphocytes # (Manual) Monocytes # (Manual) Eosinophils # (Manual) Basophils # (Manual) PT INR APTT ABG pH ABG pO2 ABG HCO3 ABG O2 Saturation ABG Base Excess ABG Hemoglobin Oxyhemoglobin Sodium Potassium Chloride Carbon Dioxide BUN 23 H Creatinine 0.5 L Glucose 121 H POC Glucose 127 H 130 H Lactic Acid Calcium 10.3 H Ionized Calcium Phosphorus Magnesium Total Bilirubin AST ALT Alkaline Phosphatase Ammonia Total Creatine Kinase CK-MB (CK-2) CK-MB (CK-2) Rel Index Total Protein Albumin Urine WBC (Auto) Vancomycin Trough Salicylates Acetaminophen Plasma/Serum Alcohol Crossmatch 03/25/20 03/25/20 03/26/20 12:50 15:57 05:39 WBC RBC Hgb Hct MCH RDW Plt Count Lymph % (Auto) [place] % (Auto) [place] # Baso # Seg Neutrophils % Seg Neuts % (Manual) Lymphocytes % (Manual) Monocytes % (Manual) Seg Neutrophils # Seg Neutrophils # Man Lymphocytes # (Manual) Monocytes # (Manual) Eosinophils # (Manual) Basophils # (Manual) PT INR APTT ABG pH ABG pO2 ABG HCO3 ABG O2 Saturation ABG Base Excess ABG Hemoglobin Oxyhemoglobin Sodium Potassium Chloride Carbon Dioxide BUN Creatinine Glucose POC Glucose 145 H 118 H 136 H Lactic Acid Calcium Ionized Calcium Phosphorus Magnesium Total Bilirubin AST ALT Alkaline Phosphatase Ammonia Total Creatine Kinase CK-MB (CK-2) CK-MB (CK-2) Rel Index Total Protein Albumin Urine WBC (Auto) Vancomycin Trough Salicylates Acetaminophen Plasma/Serum Alcohol Crossmatch Allied health notes reviewed: RT
[2020-03-26] MEDS: ENOXAPARIN 40 MG/0.4 ML INJ SUB-Q SCH (22:33)
[2020-03-27] MEDS: IPRATROPIUM/ALBUTEROL SULFATE 3 ML AMPUL.NEB IH SCH ×2 (07:45→17:33)
[2020-03-27] MEDS: ACETYLCYSTEINE 20% 200 MG/1 ML *FOR INHALATION USE INHALATION SCH (09:50)
[2020-03-27] MEDS: hydrOXYzine PAMOATE 25 MG CAP PO SCH ×2 (10:26→21:48)
[2020-03-27] MEDS: MIRTAZAPINE 30 MG TAB PO SCH (10:28)
[2020-03-27] MEDS: SCOPOLAMINE TRANSDERMAL PATCH 72 HR TD SCH (10:29)
[2020-03-27] MEDS: NICOTINE 21 MG/24 HR PATCH TD SCH (10:29)
[2020-03-27] MEDS: SERTRALINE 50 MG TAB PO SCH (10:30)
[2020-03-27] MEDS: LANSOPRAZOLE 30 MG SOLUTAB FEEDTUBE SCH (10:30)
[2020-03-27] MEDS: levETIRAcetam 500 MG/5 ML ORAL LIQD PO SCH ×2 (10:30→21:48)
[2020-03-27] MEDS: QUEtiapine 100 MG TAB FEEDTUBE SCH ×2 (10:31→21:50)
[2020-03-27] MEDS: GLYCOPYRROLATE 1 MG TAB PO SCH ×3 (10:31→21:49)
--- NOTE | 2020-03-27 11:35 | Progress Note ---
Assessment and Plan Assessment and plan: 54-year-old female with a past medical history of Hypertension, Depression, Tobacco use Disorder, Alcohol use Disorder as confirmed by Daughter and pt's mother presents to the hospital status post cardiac arrest at home. EMS found pt in [facility]. They were unable to intubate patient with a ET tube because she was clenching down therefore Joe airway placed. Per the ED physician who evaluated pt, Patient presented with a pulse, intermittent respirations, and bagging support via Joe airway with O2 sat of 100%. Accu-Chek of 71 obtained by EMS. She was intubated in the ER and called for admission. Following admission patient was diagnosed with anoxic brain injury, sepsis with MRSA bacteremia and MSSA pneumonia, alcoholic liver disease. Family member initially wished for full code then changed to DNR, patient treated with IV antibiotics for sepsis, status post trach and PEG on 12/13/19. Weaned off from the vent and put on T- piece. Patient is uninsured, waiting for placement, guarded prognosis. Anoxic brain injury: suspected CT head: No acute abnormality. EEG ordered showed Generalized slowing. No seizures or epileptiform activity. -Patient now opening her eyes, can speak and able to follow command -As needed haldol for agitation Acute Respiratory failure -due to MSSA PNA -s/p intubation, s/p trach and PEG on 12/12 with mechanical ventilation, now on T-piece - CTA was done and negative for PE, - Echo quality is poor, showed diastolic dysfunction - continue weaning as tolerated -Continue appropriate and adequate tracheostomy care Tracheostomy site ulceration -Continue appropriate wound management try to keep area dry. Anemia, microcytic - Status post 3 units PRBC transfusion, H&H low stable Acute metabolic encephalopathy/toxic encephalopathy due to the above - cont supportive care Hyperammonemia - likely from liver disease related to EtOH abuse - Patient had elevated ammonia level and treated with lactulose Metabolic Acidosis -Alcohol ketoacidosis vs hypoprofusion -Continue to monitor ELevated LFTs, stable now - due to ischemic hepatitis. Leucocytosis with sepsis - Source MRSA bacteremia and MSSA pneumonia. UA showed pyuria. RUQ US showed no ascites. - Repeat TTE negative for vegetation. Completed 7 days of Ceftriaxone on 11/29/2019. -Treated with Abx vancomycin 1 gm IV q 12 hour total 2 week till 12/30/2019 Severe protein calorie malnutrition Dietitian following MSSA pneumonia: Status post vancomycin till 12/30/2019 Alcohol use Disorder - given ongoing Alcohol use almost daily, s/p IV Thiamine - monitor Severe hypokalemia -Repleted Seizure disorder: treated with Keppra H. Influenzae, tracheobronchitis, treated with abx Moderate to severe fecal impaction - will add stool softner DNR CODE STATUS Disposition: prognosis guarded. Family okay for DNR, PT recommended subacute rehab, discharge pending on placement. Negative for COVID 19 03/07: Returning to service no acute changes are noted. Continue current management while awaiting placement. Intermittent labs. Base of neck also around tracheostomy tube preventing downgrading. Continue appropriate wound care. 03/08: Plan of care unchanged continues on aerosol trach collar 28% of oxygen. Continue wound care management placement still pending status decision. 03/09: Continue current treatment plan. Continue aspiration precaution 03/10: Continue current management, Restraints as patient still pulling, awaiting placement 03/11: Continue supportive care, intermittent suctioning and pulmonary toilet. awaiting placement. 03/12: Continue supportive care, Give a bolus of fluids due to Hypercalcemia, Monitor Hyperkalemia with labs in am, No arrhythmia. Patient vomiting, concern for aspiration, Chest xray ordered and no active disease noted. Keep HOB >45% 03/13: No evidence of aspiration on xray. Continue supportive care. 03/14: Continue supportive care. Capping trials to start. Discussed with patients nursing and case management to continue daily PT by the Rehab team. 03/15: Discussed again with staff to start capping trial. 03/16: Do not see any indication the capping trial has started will discuss with respiratory therapist. Continue restraints. Still awaiting family decision patient has had some remarkable improvement considering the fact that she was able to stay around night without restraints. We will continue daily trial of this method. Discussed plan with nursing staff 03/17: Continue current care. Currently continue restraints. Continue current management. Continue physical therapy daily. 03/18: Capping trial successful and will possibly get decannulated today. Continue placement. 03/19: Now decannulated and doing well. Begin discharge planning. 03/20: Stable, no new complaints. 03/21: No new complaints. Continue supportive 03/22: No new complaints, still with some confusion, and agitation requiring restraints. Will require daily PT/OT and continue to work with Case management for placement 03/23: continue current management, daily PT/OT. stoma care. No new seizure, slow but gradual improvement noted daily 03/24: Mr. Amaya is a 55-year-old female who presented to the hospital was admitted post cardiac arrest at home she has remarkably done well been extubated and decannulated with stoma healing. She still does experience some intermittent delirious process and as a result is on restraints. I have discussed with nursing staff to see if they can provide a sitter for her and continue daily PT as this will aid in reintroducing her to the community. Case management is working on placement for her. Will check labs in a.m. 03/25/2020. Patient is s/p cardiac arrest, extubated and decannulated with stoma healing. Await placement per case management. 03/26/2020. Awaiting placement. 03/27/2020. Continue to work with case management for placement. Patient requir ing restraints for safety. History Interval history: No new issues overnight. Hospitalist Physical - Constitutional Vitals: Temp Pulse Resp BP Pulse Ox 98.1 F 119 H 22 128/80 99 03/27/20 07:00 03/27/20 07:00 03/27/20 07:00 03/27/20 07:00 03/27/20 10:00 General appearance: Present: mild distress, cachectic, disheveled, other (Noncommunicative) - EENT Eyes: Present: PERRL, EOM intact ENT: hearing intact, clear oral mucosa, dentition normal - Neck Neck: Present: supple, normal ROM - Respiratory Respiratory effort: normal Respiratory: bilateral: CTA - Cardiovascular Rhythm: regular Heart Sounds: Present: S1 & S2. Absent: gallop, rub - Extremities Extremities: no ischemia, No edema, Full ROM - Abdominal General gastrointestinal: soft, non-tender, non-distended, normal bowel sounds - Integumentary Integumentary: Present: clear, warm, dry - Neurologic Neurologic: CNII-XII intact, moves all extremities HEART Score - HEART Score Troponin: Troponin T < 0.010 ng/mL (0.00-0.029) 11/22/19 23:27 Results - Labs CBC & Chem 7: 03/25/20 04:28 03/25/20 04:28 Labs: Laboratory Last Values WBC 9.0 K/mm3 (4.5-11.0) 03/25/20 04:28 RBC 3.65 M/mm3 (3.65-5.03) 03/25/20 04:28 Hgb 10.8 gm/dl (10.1-14.3) 03/25/20 04:28 Hct 32.5 % (30.3-42.9) 03/25/20 04:28 MCV 89 fl (79-97) 03/25/20 04:28 MCH 30 pg (28-32) 03/25/20 04:28 MCHC 33 % (30-34) 03/25/20 04:28 RDW 14.1 % (13.2-15.2) 03/25/20 04:28 Plt Count 423 K/mm3 (140-440) 03/25/20 04:28 Lymph % (Auto) 27.8 % (13.4-35.0) 03/06/20 03:37 [place] % (Auto) 9.1 % (0.0-7.3) H 03/06/20 03:37 Eos % (Auto) 2.8 % (0.0-4.3) 03/06/20 03:37 Baso % (Auto) 0.7 % (0.0-1.8) 03/06/20 03:37 Lymph # 2.2 K/mm3 (1.2-5.4) 03/06/20 03:37 [place] # 0.7 K/mm3 (0.0-0.8) 03/06/20 03:37 Eos # 0.2 K/mm3 (0.0-0.4) 03/06/20 03:37 Baso # 0.1 K/mm3 (0.0-0.1) 03/06/20 03:37 Add Manual Diff Complete 12/25/19 03:47 Total Counted 200 12/25/19 03:47 Seg Neutrophils % 59.6 % (40.0-70.0) 03/06/20 03:37 Seg Neuts % (Manual) 97.5 % (40.0-70.0) H 12/25/19 03:47 Band Neutrophils % 0 % 12/25/19 03:47 Lymphocytes % (Manual) 1.0 % (13.4-35.0) L 12/25/19 03:47 Reactive Lymphs % (Man) 0 % 12/25/19 03:47 Monocytes % (Manual) 1.5 % (0.0-7.3) 12/25/19 03:47 Eosinophils % (Manual) 0 % (0.0-4.3) 12/25/19 03:47 Basophils % (Manual) 0 % (0.0-1.8) 12/25/19 03:47 Metamyelocytes % 0 % 12/25/19 03:47 Myelocytes % 0 % 12/25/19 03:47 Promyelocytes % 0 % 12/25/19 03:47 Blast Cells % 0 % 12/25/19 03:47 Nucleated RBC % Not Reportable 12/25/19 03:47 Seg Neutrophils # 4.8 K/mm3 (1.8-7.7) 03/06/20 03:37 Seg Neutrophils # Man 35.3 K/mm3 (1.8-7.7) H 12/25/19 03:47 Band Neutrophils # 0.0 K/mm3 12/25/19 03:47 Lymphocytes # (Manual) 0.4 K/mm3 (1.2-5.4) L 12/25/19 03:47 Abs React Lymphs (Man) 0.0 K/mm3 12/25/19 03:47 Monocytes # (Manual) 0.5 K/mm3 (0.0-0.8) 12/25/19 03:47 Eosinophils # (Manual) 0.0 K/mm3 (0.0-0.4) 12/25/19 03:47 Basophils # (Manual) 0.0 K/mm3 (0.0-0.1) 12/25/19 03:47 Metamyelocytes # 0.0 K/mm3 12/25/19 03:47 Myelocytes # 0.0 K/mm3 12/25/19 03:47 Promyelocytes # 0.0 K/mm3 12/25/19 03:47 Blast Cells # 0.0 K/mm3 12/25/19 03:47 Pathologist Review 12/13/19 07:48 WBC Morphology Not Reportable 12/25/19 03:47 Hypersegmented Neuts Not Reportable 12/25/19 03:47 Hyposegmented Neuts Not Reportable 12/25/19 03:47 Hypogranular Neuts Not Reportable 12/25/19 03:47 Smudge Cells Not Reportable 12/25/19 03:47 Toxic Granulation Not Reportable 12/25/19 03:47 Toxic Vacuolation Not Reportable 12/25/19 03:47 Dohle Bodies Not Reportable 12/25/19 03:47 Pelger-Huet Anomaly Not Reportable 12/25/19 03:47 Dominique Rods Not Reportable 12/25/19 03:47 Platelet Estimate Consistent w auto 12/25/19 03:47 Clumped Platelets Not Reportable 12/25/19 03:47 Plt Clumps, EDTA Not Reportable 12/25/19 03:47 Large Platelets Not Reportable 12/25/19 03:47 Giant Platelets Not Reportable 12/25/19 03:47 Platelet Satelliting Not Reportable 12/25/19 03:47 Plt Morphology Comment Not Reportable 12/25/19 03:47 RBC Morphology Not Reportable 12/25/19 03:47 Dimorphic RBCs Not Reportable 12/25/19 03:47 Polychromasia Not Reportable 12/25/19 03:47 Hypochromasia Not Reportable 12/25/19 03:47 Poikilocytosis Not Reportable 12/25/19 03:47 Anisocytosis 1+ 12/25/19 03:47 Microcytosis Not Reportable 12/25/19 03:47 Macrocytosis Not Reportable 12/25/19 03:47 Spherocytes Not Reportable 12/25/19 03:47 Pappenheimer Bodies Not Reportable 12/25/19 03:47 Sickle Cells Not Reportable 12/25/19 03:47 Target Cells Not Reportable 12/25/19 03:47 Tear Drop Cells Not Reportable 12/25/19 03:47 Ovalocytes Not Reportable 12/25/19 03:47 Helmet Cells Not Reportable 12/25/19 03:47 [facility] Bodies Not Reportable 12/25/19 03:47 [place] Rings Not Reportable 12/25/19 03:47 [place] Cells Not Reportable 12/25/19 03:47 Bite Cells Not Reportable 12/25/19 03:47 Crenated Cell Not Reportable 12/25/19 03:47 Elliptocytes Not Reportable 12/25/19 03:47 Acanthocytes (Spur) Not Reportable 12/25/19 03:47 Rouleaux Not Reportable 12/25/19 03:47 Hemoglobin C Crystals Not Reportable 12/25/19 03:47 Schistocytes Not Reportable 12/25/19 03:47 Malaria parasites Not Reportable 12/25/19 03:47 Gregg Bodies Not Reportable 12/25/19 03:47 Hem Pathologist Commnt No 12/25/19 03:47 PT 17.0 Sec. (12.2-14.9) H 11/23/19 03:47 INR 1.36 (0.87-1.13) H 11/23/19 03:47 APTT 128.2 Sec. (24.2-36.6) H* 11/23/19 03:47 Heparin Anti-Xa Level 0.31 U.I./ml (0.3-0.7) 11/23/19 09:03 ABG pH 7.433 pH Units (7.350-7.450) 03/08/20 13:25 ABG pCO2 40.2 mm Hg 03/08/20 13:25 ABG pO2 71.1 mm Hg (80.0-90.0) L 03/08/20 13:25 ABG HCO3 26.2 mmol/L (20.0-26.0) H 03/08/20 13:25 ABG O2 Saturation 97.0 % (95.0-99.0) 03/08/20 13:25 ABG O2 Content 11.0 (0.0-44) 03/08/20 13:25 ABG Base Excess 1.8 mmol/L (-2.0-3.0) 03/08/20 13:25 ABG Hemoglobin 8.2 gm/dl (12.0-16.0) L 03/08/20 13:25 ABG Carboxyhemoglobin 1.7 % (0.0-5.0) 03/08/20 13:25 ABG Methemoglobin 0.5 % (0.0-1.5) 03/08/20 13:25 Oxyhemoglobin 94.8 % (95.0-99.0) L 03/08/20 13:25 FiO2 21 % 03/08/20 13:25 Sodium 138 mmol/L (137-145) 03/25/20 04:28 Potassium 4.2 mmol/L (3.6-5.0) 03/25/20 04:28 Chloride 99.3 mmol/L (98-107) 03/25/20 04:28 Carbon Dioxide 28 mmol/L (22-30) 03/25/20 04:28 Anion Gap 15 mmol/L 03/25/20 04:28 BUN 23 mg/dL (7-17) H 03/25/20 04:28 Creatinine 0.5 mg/dL (0.7-1.2) L 03/25/20 04:28 Estimated GFR > 60 ml/min 03/25/20 04:28 BUN/Creatinine Ratio 46 % 03/25/20 04:28 Glucose 121 mg/dL (65-100) H 03/25/20 04:28 POC Glucose 157 (70-105) H 03/26/20 23:17 Lactic Acid 1.80 mmol/L (0.7-2.0) 11/25/19 05:05 Calcium 10.3 mg/dL (8.4-10.2) H 03/25/20 04:28 Ionized Calcium 4.5 mg/dL (4.8-5.6) L 11/23/19 06:32 Phosphorus 4.20 mg/dL (2.5-4.5) D 11/28/19 08:59 Magnesium 1.90 mg/dL (1.7-2.3) 02/28/20 03:40 Total Bilirubin 0.40 mg/dL (0.1-1.2) 12/13/19 07:48 AST 27 units/L (5-40) 12/13/19 07:48 ALT 26 units/L (7-56) 12/13/19 07:48 Alkaline Phosphatase 316 units/L (35-129) H 12/13/19 07:48 Ammonia 42.0 umol/L (25-60) 11/29/19 13:41 Total Creatine Kinase 139 units/L (30-135) H 11/22/19 23:27 CK-MB (CK-2) 8.3 ng/mL (0.0-4.0) H 11/22/19 23:27 CK-MB (CK-2) Rel Index 5.9 (0-4) H 11/22/19 23:27 Troponin T < 0.010 ng/mL (0.00-0.029) 11/22/19 23:27 Total Protein 6.8 g/dL (6.3-8.2) 12/13/19 07:48 Albumin 2.4 g/dL (3.9-5) L 12/13/19 07:48 Albumin/Globulin Ratio 0.5 % 12/13/19 07:48 Lipase 18 units/L (13-60) 11/23/19 00:34 Procalcitonin 1.09 ng/mL (<0.15) 11/23/19 04:53 TSH 1.010 mlU/mL (0.270-4.200) 02/12/20 07:36 Free T4 1.08 ng/dL (0.76-1.46) 02/12/20 07:36 Urine Color Yellow (Yellow) 12/16/19 Unknown Urine Turbidity Slightly-cloudy (Clear) 12/16/19 Unknown Urine pH 5.0 (5.0-7.0) 12/16/19 Unknown Ur Specific [place] 1.018 (1.003-1.030) 12/16/19 Unknown Urine Protein 30 mg/dl mg/dL (Negative) 12/16/19 Unknown Urine Glucose (UA) Neg mg/dL (Negative) 12/16/19 Unknown Urine Ketones Neg mg/dL (Negative) 12/16/19 Unknown Urine Blood Sm (Negative) 12/16/19 Unknown Urine Nitrite Neg (Negative) 12/16/19 Unknown Urine Bilirubin Neg (Negative) 12/16/19 Unknown Urine Urobilinogen < 2.0 mg/dL (<2.0) 12/16/19 Unknown Ur Leukocyte Esterase Neg (Negative) 12/16/19 Unknown Urine WBC (Auto) 6.0 /HPF (0.0-6.0) 12/16/19 Unknown Urine RBC (Auto) 9.0 /HPF (0.0-6.0) 12/16/19 Unknown U Epithel Cells (Auto) < 1.0 /HPF (0-13.0) 12/16/19 Unknown Urine Bacteria (Auto) 2+ /HPF (Negative) 11/22/19 23:17 Hyaline Casts 3 /LPF 12/16/19 Unknown Granular Casts 3 /LPF 12/16/19 Unknown Urine Mucus Few /HPF 12/16/19 Unknown Vancomycin Trough 33.8 ug/mL (5.0-20.0) H 12/21/19 08:56 Random Vancomycin 16.2 ug/mL (0-40.0) 12/24/19 04:31 Salicylates < 0.3 mg/dL (2.8-20.0) L 11/22/19 23:27 Urine Opiates Screen Presumptive negative 11/22/19 23:17 Urine Methadone Screen Presumptive negative 11/22/19 23:17 Acetaminophen < 5.0 ug/mL (10.0-30.0) L 11/22/19 23:27 Ur Barbiturates Screen Presumptive negative 11/22/19 23:17 Ur Phencyclidine Scrn Presumptive negative 11/22/19 23:17 Ur Amphetamines Screen Presumptive negative 11/22/19 23:17 U Benzodiazepines Scrn Presumptive negative 11/22/19 23:17 Urine Cocaine Screen Presumptive negative 11/22/19 23:17 U Marijuana (THC) Screen Presumptive negative 11/22/19 23:17 Drugs of Abuse Note Disclamer 11/22/19 23:17 Plasma/Serum Alcohol 0.08 % (0-0.07) H 11/22/19 23:27 Coronavirus (PCR) Negative (Negative) 02/05/20 07:50 Hepatitis A IgM Ab Non-reactive (NonReactive) 11/23/19 01:19 Hep Bs Antigen Non-reactive (Negative) 11/23/19 01:19 Hep B Core IgM Ab Non-reactive (NonReactive) 11/23/19 01:19 Hepatitis C Antibody Non-reactive (NonReactive) 11/23/19 01:19 Blood Type O POSITIVE 12/21/19 14:54 Antibody Screen Negative 12/21/19 14:54 Crossmatch See Detail 12/21/19 14:54 - Diagnostic Impressions Diagnostic Impressions: Echocardiogram 11/23/19 03:58 Transthoracic Echocardiogram Indication: Cardiac arrest BP: 131/89 HR: 115 Conclusions *The study quality is technically difficult. *Global left ventricular wall motion and contractility are within normal limits. *The estimated ejection fraction is 55-60%. *Abnormal left ventricular diastolic filling is observed, consistent with impaired relaxation. *There is no pericardial effusion. Findings Procedure Info: The study quality is technically difficult. The study was technically limited due to the patient's inability to lay in the left lateral decubitus position. Left Ventricle: The left ventricular chamber size is normal. There is no left ventricular hypertrophy. Global left ventricular wall motion and contractility are within normal limits. Global left ventricular systolic function is normal. The estimated ejection fraction is 55-60%. Abnormal left ventricular diastolic filling is observed, consistent with impaired relaxation. Left Atrium: The left atrial chamber size is normal. Aortic Valve: The aortic valve leaflets are mildly thickened. Mitral Valve: The mitral valve leaflets are mildly thickened. There is no evidence of mitral regurgitation. Tricuspid Valve: The tricuspid valve leaflets are normal. There is trace tricuspid regurgitation. The right ventricular systolic pressure is calculated at 33 mmHg. Pulmonic Valve: The pulmonic valve appears normal. Pericardium: The pericardium appears normal. There is no pericardial effusion. Aorta: The aorta appears normal. Venous: The inferior vena cava appears normal in size. Measurements Chambers 2D Name Value Normal Range IVSd (2D) 0.94 cm (0.6 - 1.1) LVPWd (2D) 0.81 cm (0.6 - 1.1) LVIDd (2D) 3.6 cm (3.7 - 5.6) LVIDs (2D) 2.27 cm (2 - 3.8) LV FS (2D) 36.93 % - EF Teichholz (2D) 67.76 % - Ao root diameter (2D) 3.03 cm (2 - 3.7) Volumes/Mass Name Value Normal Range LA ESV SP 4CH (A/L) 16.89 ml - LA ESV SP 4CH (MOD) 15.52 ml - Diastolic/Systolic Function Name Value Normal Range MV E-wave Vmax 0.55 m/sec - MV deceleration time 200.89 msec - MV A-wave Vmax 0.68 m/sec - MV E:A ratio 0.82 ratio - Aortic Valve Name Value Normal Range AV Vmax 1.1 m/sec - AV VTI 15.9 cm - AV peak gradient 4.86 mmHg - AV mean gradient 2.59 mmHg - LVOT diameter 2 cm - LVOT Vmax 1.03 m/sec - LVOT VTI 15.87 cm - LVOT peak gradient 4.24 mmHg - LVOT mean gradient 2.41 mmHg - SV LVOT 49.77 ml - JOSÉ MIGUEL (continuity Vmax) 2.93 cm2 - JOSÉ MIGUEL (continuity VTI) 3.13 cm2 - Tricuspid Valve Name Value Normal Range TR Vmax 2.74 m/sec - TR peak gradient 303 mmHg - RAP 3 mmHg - RVSP 33 mmHg - IVC diameter 1.77 cm (1.2 - 2.3) Pulmonic Valve/Qp:Qs Name Value Normal Range PV Vmax 0.77 m/sec - PV peak gradient 2.4 mmHg - PV acceleration time 114.18 msec - Echocardiogram Limited Views 12/17/19 14:53 Transthoracic Echocardiogram Indication: R/O Vegetations BP: 144/83 HR: 133 Conclusions *Global left ventricular systolic function is mildly decreased. *The estimated ejection fraction is 45-50%. *A trivial pericardial effusion is visualized. Findings Left Ventricle: The left ventricular chamber size is normal. Global left ventricular systolic function is mildly decreased. The estimated ejection fraction is 45-50%. Left Atrium: The left atrial chamber size is normal. Right Ventricle: The right ventricular cavity size is normal. Right Atrium: The right atrial cavity size is normal. Aortic Valve: The aortic valve is not well visualized. There is no evidence of aortic regurgitation. Mitral Valve: The mitral valve leaflets are mildly thickened. There is trace of mitral regurgitation. Tricuspid Valve: The tricuspid valve leaflets are mildly thickened. There is trace tricuspid regurgitation. The right ventricular systolic pressure is calculated at 29 mmHg. Pulmonic Valve: The pulmonic valve is not well visualized. There is no evidence of pulmonic regurgitation. Pericardium: A trivial pericardial effusion is visualized. Aorta: There is no dilatation of the ascending aorta. There is no dilatation of the aortic root. Venous: The inferior vena cava appears normal in size. There is a greater than 50% respiratory change in the inferior vena cava dimension. Measurements Chambers 2D Name Value Normal Range IVSd (2D) 0.83 cm (0.6 - 1.1) LVPWd (2D) 0.98 cm (0.6 - 1.1) LVIDd (2D) 3.71 cm (3.7 - 5.6) LVIDs (2D) 2.93 cm (2 - 3.8) LV FS (2D) 21.12 % - EF Teichholz (2D) 43.71 % - Ao root diameter (2D) 3.02 cm (2 - 3.7) Volumes/Mass Name Value Normal Range LA ESV SP 4CH (A/L) 36.8 ml - LA ESV SP 2CH (A/L) 45.89 ml - LA ESV BP (A/L) 42.35 ml - LA ESV BP (A/L) index 26.63 ml/m2 - LA ESV SP 4CH (MOD) 34.42 ml - LA ESV SP 2CH (MOD) 44.21 ml - LA ESV BP (MOD) 39.82 ml - LA ESV BP (MOD) index 25.05 ml/m2 - Aortic Valve Name Value Normal Range LVOT diameter 1.63 cm - Tricuspid Valve Name Value Normal Range TR Vmax 2.56 m/sec - TR peak gradient 26 mmHg - RAP 3 mmHg - RVSP 29 mmHg - IVC diameter 1.83 cm (1.2 - 2.3) Del[place]/IV: Voiding Method Incontinent IV Catheter Type [Forearm] Peripheral IV IV Catheter Type [Left Forearm INT / Saline Lock ] IV Catheter Type [Right INT / Saline Lock Antecubital] IV Catheter Type [Right Hand] INT / Saline Lock IV Catheter Type [Right Wrist] Peripheral IV IV Catheter Type [Left Wrist] Peripheral IV IV Catheter Type [Left Peripheral IV Antecubital] IV Catheter Type [Right INT / Saline Lock Forearm] IV Catheter Type [Left Hand] INT / Saline Lock Active Medications - Current Medications Current Medications: Generic Name Dose Route Start Last Admin Trade Name Freq PRN Reason Stop Dose Admin Acetaminophen 650 mg 12/06/19 10:25 03/25/20 00:17 Tylenol FEEDTUBE 650 mg Q6H PRN Administration TEMP >/=100.3 Albuterol 2.5 mg 03/25/20 19:25 Proventil IH Q4HRT PRN Shortness Of Breath Albuterol/Ipratropium 1 ampul 03/26/20 08:00 03/27/20 07:45 Duoneb *Not For Prn Use* IH 1 ampul TIDRT LUCHO Administration Lipase/Protease/Amylase 1 each 11/23/19 11:[address] 10,500 Unit FEEDTUBE PRN PRN Use w/ sod bicarb for FT Bisacodyl 10 mg 02/06/20 13:57 Dulcolax [place] QDAY PRN Constipation unrelieved by MOM Enoxaparin Sodium 40 mg 03/07/20 22:00 03/26/20 22:33 Enoxaparin SUB-Q 40 mg QDAY@2200 LUCHO Administration Glycopyrrolate 2 mg 12/31/19 20:00 03/27/20 10:31 Robinul PO 2 mg TID LUCHO Administration Haloperidol Lactate 5 mg 03/05/20 09:22 03/25/20 00:17 Haldol IM 5 mg Q6H PRN Administration Agitation Hydralazine HCl 10 mg 11/24/19 00:45 03/03/20 05:57 Apresoline IV 10 mg Q6H PRN Administration SBP > 160 Hydroxyzine Pamoate 25 mg 12/06/19 10:00 03/27/20 10:26 Vistaril PO 25 mg BID LUCHO Administration Lansoprazole 30 mg 11/27/19 10:00 03/27/20 10:30 Prevacid Solutab FEEDTUBE 30 mg QDAY LUCOH Administration Levetiracetam 500 mg 11/29/19 10:00 03/27/20 10:30 Keppra PO 500 mg BID LUCHO Administration Mirtazapine 30 mg 12/06/19 10:00 03/27/20 10:28 Remeron PO 30 mg DAILY LUCHO Administration Nicotine 21 mg 02/16/20 13:00 03/27/20 10:29 Habitrol TD 21 mg QDAY LUCHO Administration Ondansetron HCl 4 mg 12/10/19 07:53 02/25/20 02:51 Zofran IV 4 mg Q4H PRN Administration Nausea And Vomiting Polyethylene Glycol 17 gm 02/06/20 13:57 Miralax 3350 PO QDAY PRN Constipation Quetiapine Fumarate 100 mg 03/06/20 10:00 03/27/20 10:31 Seroquel FEEDTUBE 100 mg BID LUCHO Administration Scopolamine 1 each 02/08/20 15:00 03/27/20 10:29 Transderm-Scop TD 1 each Q3D LUCHO Administration Sertraline HCl 25 mg 01/01/20 10:00 03/27/20 10:30 Zoloft PO 25 mg QDAY LUCHO Administration Simple Syrup 15 ml 11/23/19 11:50 Simple Syrup FEEDTUBE PRN PRN Hypoglycemia BG<70 Simple Syrup 30 ml 11/23/19 11:50 Simple Syrup FEEDTUBE PRN PRN Hypoglycemia Sodium Bicarbonate 325 mg 11/23/19 11:50 Sodium Bicarbonate FEEDTUBE PRN PRN For Clogged Feeding Tube Nutrition/Malnutrition Assess - Dietary Evaluation Nutrition/Malnutrition Findings: Nutrition Notes Start: 11/23/19 11:29 Freq: Status: Active Protocol: Document 03/27/20 10:42 EVELIA (Rec: 03/27/20 10:48 EVELIA [email or web address]) Nutrition Notes Initial or Follow up Reassessment Other Pertinent Diagnosis s/p Cardiac arrest, acute metabolic encephalopathy Current Diet Jevity 1.2 at 60ml/hr Labs/Tests Reviewed Pertinent Medications Reviewed Height 5 ft 6 in Weight 49 kg [place] Body Weight (kg) 59.09 BMI 17.4 Subjective/Other Information RD spoke with RN via telephone this am (10:39). Pt tolerating TF at goal rate. Pt receiving Osmolite 1.5 at this time, however, Jevity 1.2 back in stock today. Pt awaiting placement. Burn Absent Trauma Absent #2 Nutrition Diagnosis Malnutrition Diagnosis Progress(for reassessment Continues documentation) #1 Nutrition Diagnosis Inadequate oral intake Diagnosis Progress(for reassessment Continues documentation) Is patient on ventilator? No Is Patient Ambulatory and/or Out of Bed No REE-([facility]-confined to bed) 1326.792 Kcal/Kg value to use for calculation 35 Approximate Energy Requirements Using 1715 kcal/Kg Calculation Used for Recommendations Kcal/kg Additional Notes Pro needs 1.2-1.5g/k-74g/ day Fluid needs 1ml/kcal Nutrition Intervention Nutrition Support: Change TF back to Jevity 1.2 at 60ml/hr Flush 100ml q4h Kcal 1,728 Protein (gm) 80 Fluid (mL) 1,162 Fiber (gm) 26 Goal #1 TF tolerance Goal #2 TF to meet 100% energy and pro needs Goal #3 Wt maintenance and/or gain Follow-Up By: 04/03/20 Additional Comments F/U: stable TF, wt
[2020-03-27] MEDS ORDERED: IPRATROPIUM/ALBUTEROL SULFATE 3 ML AMPUL.NEB IH ONE (19:15)
[2020-03-27] MEDS: ENOXAPARIN 40 MG/0.4 ML INJ SUB-Q SCH (21:49)
[2020-03-28] MEDS: IPRATROPIUM/ALBUTEROL SULFATE 3 ML AMPUL.NEB IH SCH ×4 (07:51→19:40)
--- NOTE | 2020-03-28 08:59 | Progress Note ---
Assessment and Plan Assessment and plan: 54-year-old female with a past medical history of Hypertension, Depression, Tobacco use Disorder, Alcohol use Disorder as confirmed by Daughter and pt's mother presents to the hospital status post cardiac arrest at home. EMS found pt in [facility]. They were unable to intubate patient with a ET tube because she was clenching down therefore Joe airway placed. Per the ED physician who evaluated pt, Patient presented with a pulse, intermittent respirations, and bagging support via Joe airway with O2 sat of 100%. Accu-Chek of 71 obtained by EMS. She was intubated in the ER and called for admission. Following admission patient was diagnosed with anoxic brain injury, sepsis with MRSA bacteremia and MSSA pneumonia, alcoholic liver disease. Family member initially wished for full code then changed to DNR, patient treated with IV antibiotics for sepsis, status post trach and PEG on 12/13/19. Weaned off from the vent and put on T- piece. Patient is uninsured, waiting for placement, guarded prognosis. Anoxic brain injury: suspected CT head: No acute abnormality. EEG ordered showed Generalized slowing. No seizures or epileptiform activity. -Patient now opening her eyes, can speak and able to follow command -As needed haldol for agitation Acute Respiratory failure -due to MSSA PNA -s/p intubation, s/p trach and PEG on 12/12 with mechanical ventilation, now on T-piece - CTA was done and negative for PE, - Echo quality is poor, showed diastolic dysfunction - continue weaning as tolerated -Continue appropriate and adequate tracheostomy care Tracheostomy site ulceration -Continue appropriate wound management try to keep area dry. Anemia, microcytic - Status post 3 units PRBC transfusion, H&H low stable Acute metabolic encephalopathy/toxic encephalopathy due to the above - cont supportive care Hyperammonemia - likely from liver disease related to EtOH abuse - Patient had elevated ammonia level and treated with lactulose Metabolic Acidosis -Alcohol ketoacidosis vs hypoprofusion -Continue to monitor ELevated LFTs, stable now - due to ischemic hepatitis. Leucocytosis with sepsis - Source MRSA bacteremia and MSSA pneumonia. UA showed pyuria. RUQ US showed no ascites. - Repeat TTE negative for vegetation. Completed 7 days of Ceftriaxone on 11/29/2019. -Treated with Abx vancomycin 1 gm IV q 12 hour total 2 week till 12/30/2019 Severe protein calorie malnutrition Dietitian following MSSA pneumonia: Status post vancomycin till 12/30/2019 Alcohol use Disorder - given ongoing Alcohol use almost daily, s/p IV Thiamine - monitor Severe hypokalemia -Repleted Seizure disorder: treated with Keppra H. Influenzae, tracheobronchitis, treated with abx Moderate to severe fecal impaction - will add stool softner DNR CODE STATUS Disposition: prognosis guarded. Family okay for DNR, PT recommended subacute rehab, discharge pending on placement. Negative for COVID 19 03/07: Returning to service no acute changes are noted. Continue current management while awaiting placement. Intermittent labs. Base of neck also around tracheostomy tube preventing downgrading. Continue appropriate wound care. 03/08: Plan of care unchanged continues on aerosol trach collar 28% of oxygen. Continue wound care management placement still pending status decision. 03/09: Continue current treatment plan. Continue aspiration precaution 03/10: Continue current management, Restraints as patient still pulling, awaiting placement 03/11: Continue supportive care, intermittent suctioning and pulmonary toilet. awaiting placement. 03/12: Continue supportive care, Give a bolus of fluids due to Hypercalcemia, Monitor Hyperkalemia with labs in am, No arrhythmia. Patient vomiting, concern for aspiration, Chest xray ordered and no active disease noted. Keep HOB >45% 03/13: No evidence of aspiration on xray. Continue supportive care. 03/14: Continue supportive care. Capping trials to start. Discussed with patients nursing and case management to continue daily PT by the Rehab team. 03/15: Discussed again with staff to start capping trial. 03/16: Do not see any indication the capping trial has started will discuss with respiratory therapist. Continue restraints. Still awaiting family decision patient has had some remarkable improvement considering the fact that she was able to stay around night without restraints. We will continue daily trial of this method. Discussed plan with nursing staff 03/17: Continue current care. Currently continue restraints. Continue current management. Continue physical therapy daily. 03/18: Capping trial successful and will possibly get decannulated today. Continue placement. 03/19: Now decannulated and doing well. Begin discharge planning. 03/20: Stable, no new complaints. 03/21: No new complaints. Continue supportive 03/22: No new complaints, still with some confusion, and agitation requiring restraints. Will require daily PT/OT and continue to work with Case management for placement 03/23: continue current management, daily PT/OT. stoma care. No new seizure, slow but gradual improvement noted daily 03/24: Mr. Amaya is a 55-year-old female who presented to the hospital was admitted post cardiac arrest at home she has remarkably done well been extubated and decannulated with stoma healing. She still does experience some intermittent delirious process and as a result is on restraints. I have discussed with nursing staff to see if they can provide a sitter for her and continue daily PT as this will aid in reintroducing her to the community. Case management is working on placement for her. Will check labs in a.m. 03/25/2020. Patient is s/p cardiac arrest, extubated and decannulated with stoma healing. Await placement per case management. 03/26/2020. Awaiting placement. 03/27/2020. Continue to work with case management for placement. Patient requir ing restraints for safety. 03/28/2020. Awaiting placement. History Interval history: No new issues overnight. Hospitalist Physical - Constitutional Vitals: Temp Pulse Resp BP Pulse Ox 98.0 F 82 18 106/68 94 03/28/20 04:11 03/28/20 07:51 03/28/20 07:51 03/28/20 04:11 03/28/20 07:52 General appearance: Present: no acute distress, cachectic, disheveled, other (Noncommunicative) - EENT Eyes: Present: PERRL, EOM intact ENT: hearing intact, clear oral mucosa, dentition normal - Neck Neck: Present: supple, normal ROM - Respiratory Respiratory effort: normal Respiratory: bilateral: CTA - Cardiovascular Rhythm: regular Heart Sounds: Present: S1 & S2. Absent: gallop, rub - Extremities Extremities: no ischemia, No edema, Full ROM - Abdominal General gastrointestinal: soft, non-tender, non-distended, normal bowel sounds - Integumentary Integumentary: Present: clear, warm, dry - Neurologic Neurologic: CNII-XII intact, moves all extremities HEART Score - HEART Score Troponin: Troponin T < 0.010 ng/mL (0.00-0.029) 11/22/19 23:27 Results - Labs CBC & Chem 7: 03/25/20 04:28 03/25/20 04:28 Labs: Laboratory Last Values WBC 9.0 K/mm3 (4.5-11.0) 03/25/20 04:28 RBC 3.65 M/mm3 (3.65-5.03) 03/25/20 04:28 Hgb 10.8 gm/dl (10.1-14.3) 03/25/20 04:28 Hct 32.5 % (30.3-42.9) 03/25/20 04:28 MCV 89 fl (79-97) 03/25/20 04:28 MCH 30 pg (28-32) 03/25/20 04:28 MCHC 33 % (30-34) 03/25/20 04:28 RDW 14.1 % (13.2-15.2) 03/25/20 04:28 Plt Count 423 K/mm3 (140-440) 03/25/20 04:28 Lymph % (Auto) 27.8 % (13.4-35.0) 03/06/20 03:37 Thurston % (Auto) 9.1 % (0.0-7.3) H 03/06/20 03:37 Eos % (Auto) 2.8 % (0.0-4.3) 03/06/20 03:37 Baso % (Auto) 0.7 % (0.0-1.8) 03/06/20 03:37 Lymph # 2.2 K/mm3 (1.2-5.4) 03/06/20 03:37 Thurston # 0.7 K/mm3 (0.0-0.8) 03/06/20 03:37 Eos # 0.2 K/mm3 (0.0-0.4) 03/06/20 03:37 Baso # 0.1 K/mm3 (0.0-0.1) 03/06/20 03:37 Add Manual Diff Complete 12/25/19 03:47 Total Counted 200 12/25/19 03:47 Seg Neutrophils % 59.6 % (40.0-70.0) 03/06/20 03:37 Seg Neuts % (Manual) 97.5 % (40.0-70.0) H 12/25/19 03:47 Band Neutrophils % 0 % 12/25/19 03:47 Lymphocytes % (Manual) 1.0 % (13.4-35.0) L 12/25/19 03:47 Reactive Lymphs % (Man) 0 % 12/25/19 03:47 Monocytes % (Manual) 1.5 % (0.0-7.3) 12/25/19 03:47 Eosinophils % (Manual) 0 % (0.0-4.3) 12/25/19 03:47 Basophils % (Manual) 0 % (0.0-1.8) 12/25/19 03:47 Metamyelocytes % 0 % 12/25/19 03:47 Myelocytes % 0 % 12/25/19 03:47 Promyelocytes % 0 % 12/25/19 03:47 Blast Cells % 0 % 12/25/19 03:47 Nucleated RBC % Not Reportable 12/25/19 03:47 Seg Neutrophils # 4.8 K/mm3 (1.8-7.7) 03/06/20 03:37 Seg Neutrophils # Man 35.3 K/mm3 (1.8-7.7) H 12/25/19 03:47 Band Neutrophils # 0.0 K/mm3 12/25/19 03:47 Lymphocytes # (Manual) 0.4 K/mm3 (1.2-5.4) L 12/25/19 03:47 Abs React Lymphs (Man) 0.0 K/mm3 12/25/19 03:47 Monocytes # (Manual) 0.5 K/mm3 (0.0-0.8) 12/25/19 03:47 Eosinophils # (Manual) 0.0 K/mm3 (0.0-0.4) 12/25/19 03:47 Basophils # (Manual) 0.0 K/mm3 (0.0-0.1) 12/25/19 03:47 Metamyelocytes # 0.0 K/mm3 12/25/19 03:47 Myelocytes # 0.0 K/mm3 12/25/19 03:47 Promyelocytes # 0.0 K/mm3 12/25/19 03:47 Blast Cells # 0.0 K/mm3 12/25/19 03:47 Pathologist Review 12/13/19 07:48 WBC Morphology Not Reportable 12/25/19 03:47 Hypersegmented Neuts Not Reportable 12/25/19 03:47 Hyposegmented Neuts Not Reportable 12/25/19 03:47 Hypogranular Neuts Not Reportable 12/25/19 03:47 Smudge Cells Not Reportable 12/25/19 03:47 Toxic Granulation Not Reportable 12/25/19 03:47 Toxic Vacuolation Not Reportable 12/25/19 03:47 Dohle Bodies Not Reportable 12/25/19 03:47 Pelger-Huet Anomaly Not Reportable 12/25/19 03:47 Dominique Rods Not Reportable 12/25/19 03:47 Platelet Estimate Consistent w auto 12/25/19 03:47 Clumped Platelets Not Reportable 12/25/19 03:47 Plt Clumps, EDTA Not Reportable 12/25/19 03:47 Large Platelets Not Reportable 12/25/19 03:47 Giant Platelets Not Reportable 12/25/19 03:47 Platelet Satelliting Not Reportable 12/25/19 03:47 Plt Morphology Comment Not Reportable 12/25/19 03:47 RBC Morphology Not Reportable 12/25/19 03:47 Dimorphic RBCs Not Reportable 12/25/19 03:47 Polychromasia Not Reportable 12/25/19 03:47 Hypochromasia Not Reportable 12/25/19 03:47 Poikilocytosis Not Reportable 12/25/19 03:47 Anisocytosis 1+ 12/25/19 03:47 Microcytosis Not Reportable 12/25/19 03:47 Macrocytosis Not Reportable 12/25/19 03:47 Spherocytes Not Reportable 12/25/19 03:47 Pappenheimer Bodies Not Reportable 12/25/19 03:47 Sickle Cells Not Reportable 12/25/19 03:47 Target Cells Not Reportable 12/25/19 03:47 Tear Drop Cells Not Reportable 12/25/19 03:47 Ovalocytes Not Reportable 12/25/19 03:47 Helmet Cells Not Reportable 12/25/19 03:47 [place] Bodies Not Reportable 12/25/19 03:47 Ensign Rings Not Reportable 12/25/19 03:47 [place] Cells Not Reportable 12/25/19 03:47 Bite Cells Not Reportable 12/25/19 03:47 Crenated Cell Not Reportable 12/25/19 03:47 Elliptocytes Not Reportable 12/25/19 03:47 Acanthocytes (Spur) Not Reportable 12/25/19 03:47 Rouleaux Not Reportable 12/25/19 03:47 Hemoglobin C Crystals Not Reportable 12/25/19 03:47 Schistocytes Not Reportable 12/25/19 03:47 Malaria parasites Not Reportable 12/25/19 03:47 Gregg Bodies Not Reportable 12/25/19 03:47 Hem Pathologist Commnt No 12/25/19 03:47 PT 17.0 Sec. (12.2-14.9) H 11/23/19 03:47 INR 1.36 (0.87-1.13) H 11/23/19 03:47 APTT 128.2 Sec. (24.2-36.6) H* 11/23/19 03:47 Heparin Anti-Xa Level 0.31 U.I./ml (0.3-0.7) 11/23/19 09:03 ABG pH 7.433 pH Units (7.350-7.450) 03/08/20 13:25 ABG pCO2 40.2 mm Hg 03/08/20 13:25 ABG pO2 71.1 mm Hg (80.0-90.0) L 03/08/20 13:25 ABG HCO3 26.2 mmol/L (20.0-26.0) H 03/08/20 13:25 ABG O2 Saturation 97.0 % (95.0-99.0) 03/08/20 13:25 ABG O2 Content 11.0 (0.0-44) 03/08/20 13:25 ABG Base Excess 1.8 mmol/L (-2.0-3.0) 03/08/20 13:25 ABG Hemoglobin 8.2 gm/dl (12.0-16.0) L 03/08/20 13:25 ABG Carboxyhemoglobin 1.7 % (0.0-5.0) 03/08/20 13:25 ABG Methemoglobin 0.5 % (0.0-1.5) 03/08/20 13:25 Oxyhemoglobin 94.8 % (95.0-99.0) L 03/08/20 13:25 FiO2 21 % 03/08/20 13:25 Sodium 138 mmol/L (137-145) 03/25/20 04:28 Potassium 4.2 mmol/L (3.6-5.0) 03/25/20 04:28 Chloride 99.3 mmol/L (98-107) 03/25/20 04:28 Carbon Dioxide 28 mmol/L (22-30) 03/25/20 04:28 Anion Gap 15 mmol/L 03/25/20 04:28 BUN 23 mg/dL (7-17) H 03/25/20 04:28 Creatinine 0.5 mg/dL (0.7-1.2) L 03/25/20 04:28 Estimated GFR > 60 ml/min 03/25/20 04:28 BUN/Creatinine Ratio 46 % 03/25/20 04:28 Glucose 121 mg/dL (65-100) H 03/25/20 04:28 POC Glucose 89 (70-105) 03/28/20 06:43 Lactic Acid 1.80 mmol/L (0.7-2.0) 11/25/19 05:05 Calcium 10.3 mg/dL (8.4-10.2) H 03/25/20 04:28 Ionized Calcium 4.5 mg/dL (4.8-5.6) L 11/23/19 06:32 Phosphorus 4.20 mg/dL (2.5-4.5) D 11/28/19 08:59 Magnesium 1.90 mg/dL (1.7-2.3) 02/28/20 03:40 Total Bilirubin 0.40 mg/dL (0.1-1.2) 12/13/19 07:48 AST 27 units/L (5-40) 12/13/19 07:48 ALT 26 units/L (7-56) 12/13/19 07:48 Alkaline Phosphatase 316 units/L (35-129) H 12/13/19 07:48 Ammonia 42.0 umol/L (25-60) 11/29/19 13:41 Total Creatine Kinase 139 units/L (30-135) H 11/22/19 23:27 CK-MB (CK-2) 8.3 ng/mL (0.0-4.0) H 11/22/19 23:27 CK-MB (CK-2) Rel Index 5.9 (0-4) H 11/22/19 23:27 Troponin T < 0.010 ng/mL (0.00-0.029) 11/22/19 23:27 Total Protein 6.8 g/dL (6.3-8.2) 12/13/19 07:48 Albumin 2.4 g/dL (3.9-5) L 12/13/19 07:48 Albumin/Globulin Ratio 0.5 % 12/13/19 07:48 Lipase 18 units/L (13-60) 11/23/19 00:34 Procalcitonin 1.09 ng/mL (<0.15) 11/23/19 04:53 TSH 1.010 mlU/mL (0.270-4.200) 02/12/20 07:36 Free T4 1.08 ng/dL (0.76-1.46) 02/12/20 07:36 Urine Color Yellow (Yellow) 12/16/19 Unknown Urine Turbidity Slightly-cloudy (Clear) 12/16/19 Unknown Urine pH 5.0 (5.0-7.0) 12/16/19 Unknown Ur Specific [place] 1.018 (1.003-1.030) 12/16/19 Unknown Urine Protein 30 mg/dl mg/dL (Negative) 12/16/19 Unknown Urine Glucose (UA) Neg mg/dL (Negative) 12/16/19 Unknown Urine Ketones Neg mg/dL (Negative) 12/16/19 Unknown Urine Blood Sm (Negative) 12/16/19 Unknown Urine Nitrite Neg (Negative) 12/16/19 Unknown Urine Bilirubin Neg (Negative) 12/16/19 Unknown Urine Urobilinogen < 2.0 mg/dL (<2.0) 12/16/19 Unknown Ur Leukocyte Esterase Neg (Negative) 12/16/19 Unknown Urine WBC (Auto) 6.0 /HPF (0.0-6.0) 12/16/19 Unknown Urine RBC (Auto) 9.0 /HPF (0.0-6.0) 12/16/19 Unknown U Epithel Cells (Auto) < 1.0 /HPF (0-13.0) 12/16/19 Unknown Urine Bacteria (Auto) 2+ /HPF (Negative) 11/22/19 23:17 Hyaline Casts 3 /LPF 12/16/19 Unknown Granular Casts 3 /LPF 12/16/19 Unknown Urine Mucus Few /HPF 12/16/19 Unknown Vancomycin Trough 33.8 ug/mL (5.0-20.0) H 12/21/19 08:56 Random Vancomycin 16.2 ug/mL (0-40.0) 12/24/19 04:31 Salicylates < 0.3 mg/dL (2.8-20.0) L 11/22/19 23:27 Urine Opiates Screen Presumptive negative 11/22/19 23:17 Urine Methadone Screen Presumptive negative 11/22/19 23:17 Acetaminophen < 5.0 ug/mL (10.0-30.0) L 11/22/19 23:27 Ur Barbiturates Screen Presumptive negative 11/22/19 23:17 Ur Phencyclidine Scrn Presumptive negative 11/22/19 23:17 Ur Amphetamines Screen Presumptive negative 11/22/19 23:17 U Benzodiazepines Scrn Presumptive negative 11/22/19 23:17 Urine Cocaine Screen Presumptive negative 11/22/19 23:17 U Marijuana (THC) Screen Presumptive negative 11/22/19 23:17 Drugs of Abuse Note Disclamer 11/22/19 23:17 Plasma/Serum Alcohol 0.08 % (0-0.07) H 11/22/19 23:27 Coronavirus (PCR) Negative (Negative) 02/05/20 07:50 Hepatitis A IgM Ab Non-reactive (NonReactive) 11/23/19 01:19 Hep Bs Antigen Non-reactive (Negative) 11/23/19 01:19 Hep B Core IgM Ab Non-reactive (NonReactive) 11/23/19 01:19 Hepatitis C Antibody Non-reactive (NonReactive) 11/23/19 01:19 Blood Type O POSITIVE 12/21/19 14:54 Antibody Screen Negative 12/21/19 14:54 Crossmatch See Detail 12/21/19 14:54 - Diagnostic Impressions Diagnostic Impressions: Echocardiogram 11/23/19 03:58 Transthoracic Echocardiogram Indication: Cardiac arrest BP: 131/89 HR: 115 Conclusions *The study quality is technically difficult. *Global left ventricular wall motion and contractility are within normal limits. *The estimated ejection fraction is 55-60%. *Abnormal left ventricular diastolic filling is observed, consistent with impaired relaxation. *There is no pericardial effusion. Findings Procedure Info: The study quality is technically difficult. The study was technically limited due to the patient's inability to lay in the left lateral decubitus position. Left Ventricle: The left ventricular chamber size is normal. There is no left ventricular hypertrophy. Global left ventricular wall motion and contractility are within normal limits. Global left ventricular systolic function is normal. The estimated ejection fraction is 55-60%. Abnormal left ventricular diastolic filling is observed, consistent with impaired relaxation. Left Atrium: The left atrial chamber size is normal. Aortic Valve: The aortic valve leaflets are mildly thickened. Mitral Valve: The mitral valve leaflets are mildly thickened. There is no evidence of mitral regurgitation. Tricuspid Valve: The tricuspid valve leaflets are normal. There is trace tricuspid regurgitation. The right ventricular systolic pressure is calculated at 33 mmHg. Pulmonic Valve: The pulmonic valve appears normal. Pericardium: The pericardium appears normal. There is no pericardial effusion. Aorta: The aorta appears normal. Venous: The inferior vena cava appears normal in size. Measurements Chambers 2D Name Value Normal Range IVSd (2D) 0.94 cm (0.6 - 1.1) LVPWd (2D) 0.81 cm (0.6 - 1.1) LVIDd (2D) 3.6 cm (3.7 - 5.6) LVIDs (2D) 2.27 cm (2 - 3.8) LV FS (2D) 36.93 % - EF Teichholz (2D) 67.76 % - Ao root diameter (2D) 3.03 cm (2 - 3.7) Volumes/Mass Name Value Normal Range LA ESV SP 4CH (A/L) 16.89 ml - LA ESV SP 4CH (MOD) 15.52 ml - Diastolic/Systolic Function Name Value Normal Range MV E-wave Vmax 0.55 m/sec - MV deceleration time 200.89 msec - MV A-wave Vmax 0.68 m/sec - MV E:A ratio 0.82 ratio - Aortic Valve Name Value Normal Range AV Vmax 1.1 m/sec - AV VTI 15.9 cm - AV peak gradient 4.86 mmHg - AV mean gradient 2.59 mmHg - LVOT diameter 2 cm - LVOT Vmax 1.03 m/sec - LVOT VTI 15.87 cm - LVOT peak gradient 4.24 mmHg - LVOT mean gradient 2.41 mmHg - SV LVOT 49.77 ml - JOSÉ MIGUEL (continuity Vmax) 2.93 cm2 - JOSÉ MIGUEL (continuity VTI) 3.13 cm2 - Tricuspid Valve Name Value Normal Range TR Vmax 2.74 m/sec - TR peak gradient 303 mmHg - RAP 3 mmHg - RVSP 33 mmHg - IVC diameter 1.77 cm (1.2 - 2.3) Pulmonic Valve/Qp:Qs Name Value Normal Range PV Vmax 0.77 m/sec - PV peak gradient 2.4 mmHg - PV acceleration time 114.18 msec - Echocardiogram Limited Views 12/17/19 14:53 Transthoracic Echocardiogram Indication: R/O Vegetations BP: 144/83 HR: 133 Conclusions *Global left ventricular systolic function is mildly decreased. *The estimated ejection fraction is 45-50%. *A trivial pericardial effusion is visualized. Findings Left Ventricle: The left ventricular chamber size is normal. Global left ventricular systolic function is mildly decreased. The estimated ejection fraction is 45-50%. Left Atrium: The left atrial chamber size is normal. Right Ventricle: The right ventricular cavity size is normal. Right Atrium: The right atrial cavity size is normal. Aortic Valve: The aortic valve is not well visualized. There is no evidence of aortic regurgitation. Mitral Valve: The mitral valve leaflets are mildly thickened. There is trace of mitral regurgitation. Tricuspid Valve: The tricuspid valve leaflets are mildly thickened. There is trace tricuspid regurgitation. The right ventricular systolic pressure is calculated at 29 mmHg. Pulmonic Valve: The pulmonic valve is not well visualized. There is no evidence of pulmonic regurgitation. Pericardium: A trivial pericardial effusion is visualized. Aorta: There is no dilatation of the ascending aorta. There is no dilatation of the aortic root. Venous: The inferior vena cava appears normal in size. There is a greater than 50% respiratory change in the inferior vena cava dimension. Measurements Chambers 2D Name Value Normal Range IVSd (2D) 0.83 cm (0.6 - 1.1) LVPWd (2D) 0.98 cm (0.6 - 1.1) LVIDd (2D) 3.71 cm (3.7 - 5.6) LVIDs (2D) 2.93 cm (2 - 3.8) LV FS (2D) 21.12 % - EF Teichholz (2D) 43.71 % - Ao root diameter (2D) 3.02 cm (2 - 3.7) Volumes/Mass Name Value Normal Range LA ESV SP 4CH (A/L) 36.8 ml - LA ESV SP 2CH (A/L) 45.89 ml - LA ESV BP (A/L) 42.35 ml - LA ESV BP (A/L) index 26.63 ml/m2 - LA ESV SP 4CH (MOD) 34.42 ml - LA ESV SP 2CH (MOD) 44.21 ml - LA ESV BP (MOD) 39.82 ml - LA ESV BP (MOD) index 25.05 ml/m2 - Aortic Valve Name Value Normal Range LVOT diameter 1.63 cm - Tricuspid Valve Name Value Normal Range TR Vmax 2.56 m/sec - TR peak gradient 26 mmHg - RAP 3 mmHg - RVSP 29 mmHg - IVC diameter 1.83 cm (1.2 - 2.3) Dela Cruz/IV: Voiding Method Incontinent IV Catheter Type [Forearm] Peripheral IV IV Catheter Type [Left Forearm INT / Saline Lock ] IV Catheter Type [Right INT / Saline Lock Antecubital] IV Catheter Type [Right Hand] INT / Saline Lock IV Catheter Type [Right Wrist] Peripheral IV IV Catheter Type [Left Wrist] Peripheral IV IV Catheter Type [Left Peripheral IV Antecubital] IV Catheter Type [Right INT / Saline Lock Forearm] IV Catheter Type [Left Hand] INT / Saline Lock Active Medications - Current Medications Current Medications: Generic Name Dose Route Start Last Admin Trade Name Luh PRN Reason Stop Dose Admin Acetaminophen 650 mg 12/06/19 10:25 03/25/20 00:17 Tylenol FEEDTUBE 650 mg Q6H PRN Administration TEMP >/=100.3 Albuterol 2.5 mg 03/25/20 19:25 Proventil IH Q4HRT PRN Shortness Of Breath Albuterol/Ipratropium 1 ampul 03/26/20 08:00 03/28/20 07:51 Duoneb *Not For Prn Use* IH Not Given TIDRT LUCHO Lipase/Protease/Amylase 1 each 11/23/19 11:50 Pancreaze 10,500 Unit FEEDTUBE PRN PRN Use w/ sod bicarb for FT Bisacodyl 10 mg 02/06/20 13:57 Dulcolax NM QDAY PRN Constipation unrelieved by MOM Enoxaparin Sodium 40 mg 03/07/20 22:00 03/27/20 21:49 Enoxaparin SUB-Q 40 mg QDAY@2200 LUCHO Administration Glycopyrrolate 2 mg 12/31/19 20:00 03/27/20 21:49 Robinul PO 2 mg TID LUCHO Administration Haloperidol Lactate 5 mg 03/05/20 09:22 03/25/20 00:17 Haldol IM 5 mg Q6H PRN Administration Agitation Hydralazine HCl 10 mg 11/24/19 00:45 03/03/20 05:57 Apresoline IV 10 mg Q6H PRN Administration SBP > 160 Hydroxyzine Pamoate 25 mg 12/06/19 10:00 03/27/20 21:48 Vistaril PO 25 mg BID LUCHO Administration Lansoprazole 30 mg 11/27/19 10:00 03/27/20 10:30 Prevacid Solutab FEEDTUBE 30 mg QDAY LUCHO Administration Levetiracetam 500 mg 11/29/19 10:00 03/27/20 21:48 Keppra PO 500 mg BID LUCHO Administration Mirtazapine 30 mg 12/06/19 10:00 03/27/20 10:28 Remeron PO 30 mg DAILY LUCHO Administration Nicotine 21 mg 02/16/20 13:00 03/27/20 10:29 Habitrol TD 21 mg QDAY LUCHO Administration Ondansetron HCl 4 mg 12/10/19 07:53 02/25/20 02:51 Zofran IV 4 mg Q4H PRN Administration Nausea And Vomiting Polyethylene Glycol 17 gm 02/06/20 13:57 Miralax 3350 PO QDAY PRN Constipation Quetiapine Fumarate 100 mg 03/06/20 10:00 03/27/20 21:50 Seroquel FEEDTUBE 100 mg BID LUCHO Administration Scopolamine 1 each 02/08/20 15:00 03/27/20 10:29 Transderm-Scop TD 1 each Q3D LUCHO Administration Sertraline HCl 25 mg 01/01/20 10:00 03/27/20 10:30 Zoloft PO 25 mg QDAY LUCHO Administration Simple Syrup 15 ml 11/23/19 11:50 Simple Syrup FEEDTUBE PRN PRN Hypoglycemia BG<70 Simple Syrup 30 ml 11/23/19 11:50 Simple Syrup FEEDTUBE PRN PRN Hypoglycemia Sodium Bicarbonate 325 mg 11/23/19 11:50 Sodium Bicarbonate FEEDTUBE PRN PRN For Clogged Feeding Tube Nutrition/Malnutrition Assess - Dietary Evaluation Nutrition/Malnutrition Findings: Nutrition Notes Start: 11/23/19 11:29 Freq: Status: Active Protocol: Document 03/27/20 10:42 EVELIA (Rec: 03/27/20 10:48 [email or web address] [email or web address]) Nutrition Notes Initial or Follow up Reassessment Other Pertinent Diagnosis s/p Cardiac arrest, acute metabolic encephalopathy Current Diet Jevity 1.2 at 60ml/hr Labs/Tests Reviewed Pertinent Medications Reviewed Height 5 ft 6 in Weight 49 kg [place] Body Weight (kg) 59.09 BMI 17.4 Subjective/Other Information RD spoke with RN via telephone this am (10:39). Pt tolerating TF at goal rate. Pt receiving Osmolite 1.5 at this time, however, Jevity 1.2 back in stock today. Pt awaiting placement. Burn Absent Trauma Absent #2 Nutrition Diagnosis Malnutrition Diagnosis Progress(for reassessment Continues documentation) #1 Nutrition Diagnosis Inadequate oral intake Diagnosis Progress(for reassessment Continues documentation) Is patient on ventilator? No Is Patient Ambulatory and/or Out of Bed No REE-([facility]-confined to bed) 1326.792 Kcal/Kg value to use for calculation 35 Approximate Energy Requirements Using 1715 kcal/Kg Calculation Used for Recommendations Kcal/kg Additional Notes Pro needs 1.2-1.5g/k-74g/ day Fluid needs 1ml/kcal Nutrition Intervention Nutrition Support: Change TF back to Jevity 1.2 at 60ml/hr Flush 100ml q4h Kcal 1,728 Protein (gm) 80 Fluid (mL) 1,162 Fiber (gm) 26 Goal #1 TF tolerance Goal #2 TF to meet 100% energy and pro needs Goal #3 Wt maintenance and/or gain Follow-Up By: 04/03/20 Additional Comments F/U: stable TF, wt
[2020-03-28] MEDS: hydrOXYzine PAMOATE 25 MG CAP PO SCH ×2 (10:51→21:41)
[2020-03-28] MEDS: GLYCOPYRROLATE 1 MG TAB PO SCH ×3 (10:51→21:41)
[2020-03-28] MEDS: levETIRAcetam 500 MG/5 ML ORAL LIQD PO SCH ×2 (10:51→21:41)
[2020-03-28] MEDS: LANSOPRAZOLE 30 MG SOLUTAB FEEDTUBE SCH (10:51)
[2020-03-28] MEDS: MIRTAZAPINE 30 MG TAB PO SCH (10:51)
[2020-03-28] MEDS: QUEtiapine 100 MG TAB FEEDTUBE SCH ×2 (10:52→21:41)
[2020-03-28] MEDS: SERTRALINE 50 MG TAB PO SCH (10:52)
[2020-03-28] MEDS: NICOTINE 21 MG/24 HR PATCH TD SCH (10:59)
[2020-03-28] MEDS: ENOXAPARIN 40 MG/0.4 ML INJ SUB-Q SCH (21:41)
[2020-03-29] MEDS: GLYCOPYRROLATE 1 MG TAB PO SCH ×3 (08:00→22:22)
--- NOTE | 2020-03-29 08:10 | Progress Note ---
Assessment and Plan Assessment and plan: 54-year-old female with a past medical history of Hypertension, Depression, Tobacco use Disorder, Alcohol use Disorder as confirmed by Daughter and pt's mother presents to the hospital status post cardiac arrest at home. EMS found pt in [facility]. They were unable to intubate patient with a ET tube because she was clenching down therefore Joe airway placed. Per the ED physician who evaluated pt, Patient presented with a pulse, intermittent respirations, and bagging support via Joe airway with O2 sat of 100%. Accu-Chek of 71 obtained by EMS. She was intubated in the ER and called for admission. Following admission patient was diagnosed with anoxic brain injury, sepsis with MRSA bacteremia and MSSA pneumonia, alcoholic liver disease. Family member initially wished for full code then changed to DNR, patient treated with IV antibiotics for sepsis, status post trach and PEG on 12/13/19. Weaned off from the vent and put on T- piece. Patient is uninsured, waiting for placement, guarded prognosis. Anoxic brain injury: suspected CT head: No acute abnormality. EEG ordered showed Generalized slowing. No seizures or epileptiform activity. -Patient now opening her eyes, can speak and able to follow command -As needed haldol for agitation Acute Respiratory failure -due to MSSA PNA -s/p intubation, s/p trach and PEG on 12/12 with mechanical ventilation, now on T-piece - CTA was done and negative for PE, - Echo quality is poor, showed diastolic dysfunction - continue weaning as tolerated -Continue appropriate and adequate tracheostomy care Tracheostomy site ulceration -Continue appropriate wound management try to keep area dry. Anemia, microcytic - Status post 3 units PRBC transfusion, H&H low stable Acute metabolic encephalopathy/toxic encephalopathy due to the above - cont supportive care Hyperammonemia - likely from liver disease related to EtOH abuse - Patient had elevated ammonia level and treated with lactulose Metabolic Acidosis -Alcohol ketoacidosis vs hypoprofusion -Continue to monitor ELevated LFTs, stable now - due to ischemic hepatitis. Leucocytosis with sepsis - Source MRSA bacteremia and MSSA pneumonia. UA showed pyuria. RUQ US showed no ascites. - Repeat TTE negative for vegetation. Completed 7 days of Ceftriaxone on 11/29/2019. -Treated with Abx vancomycin 1 gm IV q 12 hour total 2 week till 12/30/2019 Severe protein calorie malnutrition Dietitian following MSSA pneumonia: Status post vancomycin till 12/30/2019 Alcohol use Disorder - given ongoing Alcohol use almost daily, s/p IV Thiamine - monitor Severe hypokalemia -Repleted Seizure disorder: treated with Keppra H. Influenzae, tracheobronchitis, treated with abx Moderate to severe fecal impaction - will add stool softner DNR CODE STATUS Disposition: prognosis guarded. Family okay for DNR, PT recommended subacute rehab, discharge pending on placement. Negative for COVID 19 03/07: Returning to service no acute changes are noted. Continue current management while awaiting placement. Intermittent labs. Base of neck also around tracheostomy tube preventing downgrading. Continue appropriate wound care. 03/08: Plan of care unchanged continues on aerosol trach collar 28% of oxygen. Continue wound care management placement still pending status decision. 03/09: Continue current treatment plan. Continue aspiration precaution 03/10: Continue current management, Restraints as patient still pulling, awaiting placement 03/11: Continue supportive care, intermittent suctioning and pulmonary toilet. awaiting placement. 03/12: Continue supportive care, Give a bolus of fluids due to Hypercalcemia, Monitor Hyperkalemia with labs in am, No arrhythmia. Patient vomiting, concern for aspiration, Chest xray ordered and no active disease noted. Keep HOB >45% 03/13: No evidence of aspiration on xray. Continue supportive care. 03/14: Continue supportive care. Capping trials to start. Discussed with patients nursing and case management to continue daily PT by the Rehab team. 03/15: Discussed again with staff to start capping trial. 03/16: Do not see any indication the capping trial has started will discuss with respiratory therapist. Continue restraints. Still awaiting family decision patient has had some remarkable improvement considering the fact that she was able to stay around night without restraints. We will continue daily trial of this method. Discussed plan with nursing staff 03/17: Continue current care. Currently continue restraints. Continue current management. Continue physical therapy daily. 03/18: Capping trial successful and will possibly get decannulated today. Continue placement. 03/19: Now decannulated and doing well. Begin discharge planning. 03/20: Stable, no new complaints. 03/21: No new complaints. Continue supportive 03/22: No new complaints, still with some confusion, and agitation requiring restraints. Will require daily PT/OT and continue to work with Case management for placement 03/23: continue current management, daily PT/OT. stoma care. No new seizure, slow but gradual improvement noted daily 03/24: Mr. Amaya is a 55-year-old female who presented to the hospital was admitted post cardiac arrest at home she has remarkably done well been extubated and decannulated with stoma healing. She still does experience some intermittent delirious process and as a result is on restraints. I have discussed with nursing staff to see if they can provide a sitter for her and continue daily PT as this will aid in reintroducing her to the community. Case management is working on placement for her. Will check labs in a.m. 03/25/2020. Patient is s/p cardiac arrest, extubated and decannulated with stoma healing. Await placement per case management. 03/26/2020. Awaiting placement. 03/27/2020. Continue to work with case management for placement. Patient requir ing restraints for safety. 03/28/2020. Awaiting placement. 03/29/2020. Patient is s/p cardiac arrest, extubated and decannulated with stoma healing. Reconsulted physical therapy and speech therapy for reassessment and evaluation. Await placement per case management. History Interval history: No new issues overnight. Hospitalist Physical - Constitutional Vitals: Temp Pulse Resp BP Pulse Ox 98.2 F 101 H 18 122/85 97 03/29/20 05:20 03/29/20 05:20 03/29/20 05:20 03/29/20 05:20 03/29/20 05:20 General appearance: Present: no acute distress, cachectic, disheveled, other (Noncommunicative) - EENT Eyes: Present: PERRL, EOM intact ENT: hearing intact, clear oral mucosa, dentition normal - Neck Neck: Present: supple, normal ROM - Respiratory Respiratory effort: normal Respiratory: bilateral: CTA - Cardiovascular Rhythm: regular Heart Sounds: Present: S1 & S2. Absent: gallop, rub - Extremities Extremities: no ischemia, No edema, Full ROM - Abdominal General gastrointestinal: soft, non-tender, non-distended, normal bowel sounds - Integumentary Integumentary: Present: clear, warm, dry - Neurologic Neurologic: CNII-XII intact, moves all extremities HEART Score - HEART Score Troponin: Troponin T < 0.010 ng/mL (0.00-0.029) 11/22/19 23:27 Results - Labs CBC & Chem 7: 03/25/20 04:28 03/25/20 04:28 Labs: Laboratory Last Values WBC 9.0 K/mm3 (4.5-11.0) 03/25/20 04:28 RBC 3.65 M/mm3 (3.65-5.03) 03/25/20 04:28 Hgb 10.8 gm/dl (10.1-14.3) 03/25/20 04:28 Hct 32.5 % (30.3-42.9) 03/25/20 04:28 MCV 89 fl (79-97) 03/25/20 04:28 MCH 30 pg (28-32) 03/25/20 04:28 MCHC 33 % (30-34) 03/25/20 04:28 RDW 14.1 % (13.2-15.2) 03/25/20 04:28 Plt Count 423 K/mm3 (140-440) 03/25/20 04:28 Lymph % (Auto) 27.8 % (13.4-35.0) 03/06/20 03:37 [place] % (Auto) 9.1 % (0.0-7.3) H 03/06/20 03:37 Eos % (Auto) 2.8 % (0.0-4.3) 03/06/20 03:37 Baso % (Auto) 0.7 % (0.0-1.8) 03/06/20 03:37 Lymph # 2.2 K/mm3 (1.2-5.4) 03/06/20 03:37 [place] # 0.7 K/mm3 (0.0-0.8) 03/06/20 03:37 Eos # 0.2 K/mm3 (0.0-0.4) 03/06/20 03:37 Baso # 0.1 K/mm3 (0.0-0.1) 03/06/20 03:37 Add Manual Diff Complete 12/25/19 03:47 Total Counted 200 12/25/19 03:47 Seg Neutrophils % 59.6 % (40.0-70.0) 03/06/20 03:37 Seg Neuts % (Manual) 97.5 % (40.0-70.0) H 12/25/19 03:47 Band Neutrophils % 0 % 12/25/19 03:47 Lymphocytes % (Manual) 1.0 % (13.4-35.0) L 12/25/19 03:47 Reactive Lymphs % (Man) 0 % 12/25/19 03:47 Monocytes % (Manual) 1.5 % (0.0-7.3) 12/25/19 03:47 Eosinophils % (Manual) 0 % (0.0-4.3) 12/25/19 03:47 Basophils % (Manual) 0 % (0.0-1.8) 12/25/19 03:47 Metamyelocytes % 0 % 12/25/19 03:47 Myelocytes % 0 % 12/25/19 03:47 Promyelocytes % 0 % 12/25/19 03:47 Blast Cells % 0 % 12/25/19 03:47 Nucleated RBC % Not Reportable 12/25/19 03:47 Seg Neutrophils # 4.8 K/mm3 (1.8-7.7) 03/06/20 03:37 Seg Neutrophils # Man 35.3 K/mm3 (1.8-7.7) H 12/25/19 03:47 Band Neutrophils # 0.0 K/mm3 12/25/19 03:47 Lymphocytes # (Manual) 0.4 K/mm3 (1.2-5.4) L 12/25/19 03:47 Abs React Lymphs (Man) 0.0 K/mm3 12/25/19 03:47 Monocytes # (Manual) 0.5 K/mm3 (0.0-0.8) 12/25/19 03:47 Eosinophils # (Manual) 0.0 K/mm3 (0.0-0.4) 12/25/19 03:47 Basophils # (Manual) 0.0 K/mm3 (0.0-0.1) 12/25/19 03:47 Metamyelocytes # 0.0 K/mm3 12/25/19 03:47 Myelocytes # 0.0 K/mm3 12/25/19 03:47 Promyelocytes # 0.0 K/mm3 12/25/19 03:47 Blast Cells # 0.0 K/mm3 12/25/19 03:47 Pathologist Review 12/13/19 07:48 WBC Morphology Not Reportable 12/25/19 03:47 Hypersegmented Neuts Not Reportable 12/25/19 03:47 Hyposegmented Neuts Not Reportable 12/25/19 03:47 Hypogranular Neuts Not Reportable 12/25/19 03:47 Smudge Cells Not Reportable 12/25/19 03:47 Toxic Granulation Not Reportable 12/25/19 03:47 Toxic Vacuolation Not Reportable 12/25/19 03:47 Dohle Bodies Not Reportable 12/25/19 03:47 Pelger-Huet Anomaly Not Reportable 12/25/19 03:47 Dominique Rods Not Reportable 12/25/19 03:47 Platelet Estimate Consistent w auto 12/25/19 03:47 Clumped Platelets Not Reportable 12/25/19 03:47 Plt Clumps, EDTA Not Reportable 12/25/19 03:47 Large Platelets Not Reportable 12/25/19 03:47 Giant Platelets Not Reportable 12/25/19 03:47 Platelet Satelliting Not Reportable 12/25/19 03:47 Plt Morphology Comment Not Reportable 12/25/19 03:47 RBC Morphology Not Reportable 12/25/19 03:47 Dimorphic RBCs Not Reportable 12/25/19 03:47 Polychromasia Not Reportable 12/25/19 03:47 Hypochromasia Not Reportable 12/25/19 03:47 Poikilocytosis Not Reportable 12/25/19 03:47 Anisocytosis 1+ 12/25/19 03:47 Microcytosis Not Reportable 12/25/19 03:47 Macrocytosis Not Reportable 12/25/19 03:47 Spherocytes Not Reportable 12/25/19 03:47 Pappenheimer Bodies Not Reportable 12/25/19 03:47 Sickle Cells Not Reportable 12/25/19 03:47 Target Cells Not Reportable 12/25/19 03:47 Tear Drop Cells Not Reportable 12/25/19 03:47 Ovalocytes Not Reportable 12/25/19 03:47 Helmet Cells Not Reportable 12/25/19 03:47 [place] Bodies Not Reportable 12/25/19 03:47 Stuart Rings Not Reportable 12/25/19 03:47 Jamshid Cells Not Reportable 12/25/19 03:47 Bite Cells Not Reportable 12/25/19 03:47 Crenated Cell Not Reportable 12/25/19 03:47 Elliptocytes Not Reportable 12/25/19 03:47 Acanthocytes (Spur) Not Reportable 12/25/19 03:47 Rouleaux Not Reportable 12/25/19 03:47 Hemoglobin C Crystals Not Reportable 12/25/19 03:47 Schistocytes Not Reportable 12/25/19 03:47 Malaria parasites Not Reportable 12/25/19 03:47 Gregg Bodies Not Reportable 12/25/19 03:47 Hem Pathologist Commnt No 12/25/19 03:47 PT 17.0 Sec. (12.2-14.9) H 11/23/19 03:47 INR 1.36 (0.87-1.13) H 11/23/19 03:47 APTT 128.2 Sec. (24.2-36.6) H* 11/23/19 03:47 Heparin Anti-Xa Level 0.31 U.I./ml (0.3-0.7) 11/23/19 09:03 ABG pH 7.433 pH Units (7.350-7.450) 03/08/20 13:25 ABG pCO2 40.2 mm Hg 03/08/20 13:25 ABG pO2 71.1 mm Hg (80.0-90.0) L 03/08/20 13:25 ABG HCO3 26.2 mmol/L (20.0-26.0) H 03/08/20 13:25 ABG O2 Saturation 97.0 % (95.0-99.0) 03/08/20 13:25 ABG O2 Content 11.0 (0.0-44) 03/08/20 13:25 ABG Base Excess 1.8 mmol/L (-2.0-3.0) 03/08/20 13:25 ABG Hemoglobin 8.2 gm/dl (12.0-16.0) L 03/08/20 13:25 ABG Carboxyhemoglobin 1.7 % (0.0-5.0) 03/08/20 13:25 ABG Methemoglobin 0.5 % (0.0-1.5) 03/08/20 13:25 Oxyhemoglobin 94.8 % (95.0-99.0) L 03/08/20 13:25 FiO2 21 % 03/08/20 13:25 Sodium 138 mmol/L (137-145) 03/25/20 04:28 Potassium 4.2 mmol/L (3.6-5.0) 03/25/20 04:28 Chloride 99.3 mmol/L (98-107) 03/25/20 04:28 Carbon Dioxide 28 mmol/L (22-30) 03/25/20 04:28 Anion Gap 15 mmol/L 03/25/20 04:28 BUN 23 mg/dL (7-17) H 03/25/20 04:28 Creatinine 0.5 mg/dL (0.7-1.2) L 03/25/20 04:28 Estimated GFR > 60 ml/min 03/25/20 04:28 BUN/Creatinine Ratio 46 % 03/25/20 04:28 Glucose 121 mg/dL (65-100) H 03/25/20 04:28 POC Glucose 154 (70-105) H 03/29/20 06:41 Lactic Acid 1.80 mmol/L (0.7-2.0) 11/25/19 05:05 Calcium 10.3 mg/dL (8.4-10.2) H 03/25/20 04:28 Ionized Calcium 4.5 mg/dL (4.8-5.6) L 11/23/19 06:32 Phosphorus 4.20 mg/dL (2.5-4.5) D 11/28/19 08:59 Magnesium 1.90 mg/dL (1.7-2.3) 02/28/20 03:40 Total Bilirubin 0.40 mg/dL (0.1-1.2) 12/13/19 07:48 AST 27 units/L (5-40) 12/13/19 07:48 ALT 26 units/L (7-56) 12/13/19 07:48 Alkaline Phosphatase 316 units/L (35-129) H 12/13/19 07:48 Ammonia 42.0 umol/L (25-60) 11/29/19 13:41 Total Creatine Kinase 139 units/L (30-135) H 11/22/19 23:27 CK-MB (CK-2) 8.3 ng/mL (0.0-4.0) H 11/22/19 23:27 CK-MB (CK-2) Rel Index 5.9 (0-4) H 11/22/19 23:27 Troponin T < 0.010 ng/mL (0.00-0.029) 11/22/19 23:27 Total Protein 6.8 g/dL (6.3-8.2) 12/13/19 07:48 Albumin 2.4 g/dL (3.9-5) L 12/13/19 07:48 Albumin/Globulin Ratio 0.5 % 12/13/19 07:48 Lipase 18 units/L (13-60) 11/23/19 00:34 Procalcitonin 1.09 ng/mL (<0.15) 11/23/19 04:53 TSH 1.010 mlU/mL (0.270-4.200) 02/12/20 07:36 Free T4 1.08 ng/dL (0.76-1.46) 02/12/20 07:36 Urine Color Yellow (Yellow) 12/16/19 Unknown Urine Turbidity Slightly-cloudy (Clear) 12/16/19 Unknown Urine pH 5.0 (5.0-7.0) 12/16/19 Unknown Ur Specific [place] 1.018 (1.003-1.030) 12/16/19 Unknown Urine Protein 30 mg/dl mg/dL (Negative) 12/16/19 Unknown Urine Glucose (UA) Neg mg/dL (Negative) 12/16/19 Unknown Urine Ketones Neg mg/dL (Negative) 12/16/19 Unknown Urine Blood Sm (Negative) 12/16/19 Unknown Urine Nitrite Neg (Negative) 12/16/19 Unknown Urine Bilirubin Neg (Negative) 12/16/19 Unknown Urine Urobilinogen < 2.0 mg/dL (<2.0) 12/16/19 Unknown Ur Leukocyte Esterase Neg (Negative) 12/16/19 Unknown Urine WBC (Auto) 6.0 /HPF (0.0-6.0) 12/16/19 Unknown Urine RBC (Auto) 9.0 /HPF (0.0-6.0) 12/16/19 Unknown U Epithel Cells (Auto) < 1.0 /HPF (0-13.0) 12/16/19 Unknown Urine Bacteria (Auto) 2+ /HPF (Negative) 11/22/19 23:17 Hyaline Casts 3 /LPF 12/16/19 Unknown Granular Casts 3 /LPF 12/16/19 Unknown Urine Mucus Few /HPF 12/16/19 Unknown Vancomycin Trough 33.8 ug/mL (5.0-20.0) H 12/21/19 08:56 Random Vancomycin 16.2 ug/mL (0-40.0) 12/24/19 04:31 Salicylates < 0.3 mg/dL (2.8-20.0) L 11/22/19 23:27 Urine Opiates Screen Presumptive negative 11/22/19 23:17 Urine Methadone Screen Presumptive negative 11/22/19 23:17 Acetaminophen < 5.0 ug/mL (10.0-30.0) L 11/22/19 23:27 Ur Barbiturates Screen Presumptive negative 11/22/19 23:17 Ur Phencyclidine Scrn Presumptive negative 11/22/19 23:17 Ur Amphetamines Screen Presumptive negative 11/22/19 23:17 U Benzodiazepines Scrn Presumptive negative 11/22/19 23:17 Urine Cocaine Screen Presumptive negative 11/22/19 23:17 U Marijuana (THC) Screen Presumptive negative 11/22/19 23:17 Drugs of Abuse Note Disclamer 11/22/19 23:17 Plasma/Serum Alcohol 0.08 % (0-0.07) H 11/22/19 23:27 Coronavirus (PCR) Negative (Negative) 02/05/20 07:50 Hepatitis A IgM Ab Non-reactive (NonReactive) 11/23/19 01:19 Hep Bs Antigen Non-reactive (Negative) 11/23/19 01:19 Hep B Core IgM Ab Non-reactive (NonReactive) 11/23/19 01:19 Hepatitis C Antibody Non-reactive (NonReactive) 11/23/19 01:19 Blood Type O POSITIVE 12/21/19 14:54 Antibody Screen Negative 12/21/19 14:54 Crossmatch See Detail 12/21/19 14:54 - Diagnostic Impressions Diagnostic Impressions: Echocardiogram 11/23/19 03:58 Transthoracic Echocardiogram Indication: Cardiac arrest BP: 131/89 HR: 115 Conclusions *The study quality is technically difficult. *Global left ventricular wall motion and contractility are within normal limits. *The estimated ejection fraction is 55-60%. *Abnormal left ventricular diastolic filling is observed, consistent with impaired relaxation. *There is no pericardial effusion. Findings Procedure Info: The study quality is technically difficult. The study was technically limited due to the patient's inability to lay in the left lateral decubitus position. Left Ventricle: The left ventricular chamber size is normal. There is no left ventricular hypertrophy. Global left ventricular wall motion and contractility are within normal limits. Global left ventricular systolic function is normal. The estimated ejection fraction is 55-60%. Abnormal left ventricular diastolic filling is observed, consistent with impaired relaxation. Left Atrium: The left atrial chamber size is normal. Aortic Valve: The aortic valve leaflets are mildly thickened. Mitral Valve: The mitral valve leaflets are mildly thickened. There is no evidence of mitral regurgitation. Tricuspid Valve: The tricuspid valve leaflets are normal. There is trace tricuspid regurgitation. The right ventricular systolic pressure is calculated at 33 mmHg. Pulmonic Valve: The pulmonic valve appears normal. Pericardium: The pericardium appears normal. There is no pericardial effusion. Aorta: The aorta appears normal. Venous: The inferior vena cava appears normal in size. Measurements Chambers 2D Name Value Normal Range IVSd (2D) 0.94 cm (0.6 - 1.1) LVPWd (2D) 0.81 cm (0.6 - 1.1) LVIDd (2D) 3.6 cm (3.7 - 5.6) LVIDs (2D) 2.27 cm (2 - 3.8) LV FS (2D) 36.93 % - EF Teichholz (2D) 67.76 % - Ao root diameter (2D) 3.03 cm (2 - 3.7) Volumes/Mass Name Value Normal Range LA ESV SP 4CH (A/L) 16.89 ml - LA ESV SP 4CH (MOD) 15.52 ml - Diastolic/Systolic Function Name Value Normal Range MV E-wave Vmax 0.55 m/sec - MV deceleration time 200.89 msec - MV A-wave Vmax 0.68 m/sec - MV E:A ratio 0.82 ratio - Aortic Valve Name Value Normal Range AV Vmax 1.1 m/sec - AV VTI 15.9 cm - AV peak gradient 4.86 mmHg - AV mean gradient 2.59 mmHg - LVOT diameter 2 cm - LVOT Vmax 1.03 m/sec - LVOT VTI 15.87 cm - LVOT peak gradient 4.24 mmHg - LVOT mean gradient 2.41 mmHg - SV LVOT 49.77 ml - JOSÉ MIGUEL (continuity Vmax) 2.93 cm2 - JOSÉ MIGUEL (continuity VTI) 3.13 cm2 - Tricuspid Valve Name Value Normal Range TR Vmax 2.74 m/sec - TR peak gradient 303 mmHg - RAP 3 mmHg - RVSP 33 mmHg - IVC diameter 1.77 cm (1.2 - 2.3) Pulmonic Valve/Qp:Qs Name Value Normal Range PV Vmax 0.77 m/sec - PV peak gradient 2.4 mmHg - PV acceleration time 114.18 msec - Echocardiogram Limited Views 12/17/19 14:53 Transthoracic Echocardiogram Indication: R/O Vegetations BP: 144/83 HR: 133 Conclusions *Global left ventricular systolic function is mildly decreased. *The estimated ejection fraction is 45-50%. *A trivial pericardial effusion is visualized. Findings Left Ventricle: The left ventricular chamber size is normal. Global left ventricular systolic function is mildly decreased. The estimated ejection fraction is 45-50%. Left Atrium: The left atrial chamber size is normal. Right Ventricle: The right ventricular cavity size is normal. Right Atrium: The right atrial cavity size is normal. Aortic Valve: The aortic valve is not well visualized. There is no evidence of aortic regurgitation. Mitral Valve: The mitral valve leaflets are mildly thickened. There is trace of mitral regurgitation. Tricuspid Valve: The tricuspid valve leaflets are mildly thickened. There is trace tricuspid regurgitation. The right ventricular systolic pressure is calculated at 29 mmHg. Pulmonic Valve: The pulmonic valve is not well visualized. There is no evidence of pulmonic regurgitation. Pericardium: A trivial pericardial effusion is visualized. Aorta: There is no dilatation of the ascending aorta. There is no dilatation of the aortic root. Venous: The inferior vena cava appears normal in size. There is a greater than 50% respiratory change in the inferior vena cava dimension. Measurements Chambers 2D Name Value Normal Range IVSd (2D) 0.83 cm (0.6 - 1.1) LVPWd (2D) 0.98 cm (0.6 - 1.1) LVIDd (2D) 3.71 cm (3.7 - 5.6) LVIDs (2D) 2.93 cm (2 - 3.8) LV FS (2D) 21.12 % - EF Teichholz (2D) 43.71 % - Ao root diameter (2D) 3.02 cm (2 - 3.7) Volumes/Mass Name Value Normal Range LA ESV SP 4CH (A/L) 36.8 ml - LA ESV SP 2CH (A/L) 45.89 ml - LA ESV BP (A/L) 42.35 ml - LA ESV BP (A/L) index 26.63 ml/m2 - LA ESV SP 4CH (MOD) 34.42 ml - LA ESV SP 2CH (MOD) 44.21 ml - LA ESV BP (MOD) 39.82 ml - LA ESV BP (MOD) index 25.05 ml/m2 - Aortic Valve Name Value Normal Range LVOT diameter 1.63 cm - Tricuspid Valve Name Value Normal Range TR Vmax 2.56 m/sec - TR peak gradient 26 mmHg - RAP 3 mmHg - RVSP 29 mmHg - IVC diameter 1.83 cm (1.2 - 2.3) [place]/IV: Voiding Method Incontinent IV Catheter Type [Forearm] Peripheral IV IV Catheter Type [Left Forearm INT / Saline Lock ] IV Catheter Type [Right INT / Saline Lock Antecubital] IV Catheter Type [Right Hand] INT / Saline Lock IV Catheter Type [Right Wrist] Peripheral IV IV Catheter Type [Left Wrist] Peripheral IV IV Catheter Type [Left Peripheral IV Antecubital] IV Catheter Type [Right INT / Saline Lock Forearm] IV Catheter Type [Left Hand] INT / Saline Lock Active Medications - Current Medications Current Medications: Generic Name Dose Route Start Last Admin Trade Name Freq PRN Reason Stop Dose Admin Acetaminophen 650 mg 12/06/19 10:25 03/25/20 00:17 Tylenol FEEDTUBE 650 mg Q6H PRN Administration TEMP >/=100.3 Albuterol 2.5 mg 03/25/20 19:25 Proventil IH Q4HRT PRN Shortness Of Breath Albuterol/Ipratropium 1 ampul 03/26/20 08:00 03/28/20 19:40 Duoneb *Not For Prn Use* IH 1 ampul TIDRT LUCHO Administration Lipase/Protease/Amylase 1 each 11/23/19 11:[address] 10,500 Unit FEEDTUBE PRN PRN Use w/ sod bicarb for FT Bisacodyl 10 mg 02/06/20 13:57 Dulcolax [place] QDAY PRN Constipation unrelieved by MOM Enoxaparin Sodium 40 mg 03/07/20 22:00 03/28/20 21:41 Enoxaparin SUB-Q 40 mg QDAY@2200 LUCHO Administration Glycopyrrolate 2 mg 12/31/19 20:00 03/28/20 21:41 Robinul PO 2 mg TID LUCHO Administration Haloperidol Lactate 5 mg 03/05/20 09:22 03/25/20 00:17 Haldol IM 5 mg Q6H PRN Administration Agitation Hydralazine HCl 10 mg 11/24/19 00:45 03/03/20 05:57 Apresoline IV 10 mg Q6H PRN Administration SBP > 160 Hydroxyzine Pamoate 25 mg 12/06/19 10:00 03/28/20 21:41 Vistaril PO 25 mg BID LUCHO Administration Lansoprazole 30 mg 11/27/19 10:00 03/28/20 10:51 Prevacid Solutab FEEDTUBE 30 mg QDAY LUCHO Administration Levetiracetam 500 mg 11/29/19 10:00 03/28/20 21:41 Keppra PO 500 mg BID LUCHO Administration Mirtazapine 30 mg 12/06/19 10:00 03/28/20 10:51 Remeron PO 30 mg DAILY LUCHO Administration Nicotine 21 mg 02/16/20 13:00 03/28/20 10:59 Habitrol TD 21 mg QDAY LUCHO Administration Ondansetron HCl 4 mg 12/10/19 07:53 02/25/20 02:51 Zofran IV 4 mg Q4H PRN Administration Nausea And Vomiting Polyethylene Glycol 17 gm 02/06/20 13:57 Miralax 3350 PO QDAY PRN Constipation Quetiapine Fumarate 100 mg 03/06/20 10:00 03/28/20 21:41 Seroquel FEEDTUBE 100 mg BID LUCHO Administration Scopolamine 1 each 02/08/20 15:00 03/27/20 10:29 Transderm-Scop TD 1 each Q3D LUCHO Administration Sertraline HCl 25 mg 04/14/20 10:00 03/28/20 10:52 Zoloft PO 25 mg QDAY LUCHO Administration Simple Syrup 15 ml 11/23/19 11:50 Simple Syrup FEEDTUBE PRN PRN Hypoglycemia BG<70 Simple Syrup 30 ml 11/23/19 11:50 Simple Syrup FEEDTUBE PRN PRN Hypoglycemia Sodium Bicarbonate 325 mg 11/23/19 11:50 Sodium Bicarbonate FEEDTUBE PRN PRN For Clogged Feeding Tube Nutrition/Malnutrition Assess - Dietary Evaluation Nutrition/Malnutrition Findings: Nutrition Notes Start: 11/23/19 11:29 Freq: Status: Active Protocol: Document 03/27/20 10:42 EVELIA (Rec: 03/27/20 10:48 [id number]) Nutrition Notes Initial or Follow up Reassessment Other Pertinent Diagnosis s/p Cardiac arrest, acute metabolic encephalopathy Current Diet Jevity 1.2 at 60ml/hr Labs/Tests Reviewed Pertinent Medications Reviewed Height 5 ft 6 in Weight 49 kg [place] Body Weight (kg) 59.09 BMI 17.4 Subjective/Other Information RD spoke with RN via telephone this am (10:39). Pt tolerating TF at goal rate. Pt receiving Osmolite 1.5 at this time, however, Jevity 1.2 back in stock today. Pt awaiting placement. Burn Absent Trauma Absent #2 Nutrition Diagnosis Malnutrition Diagnosis Progress(for reassessment Continues documentation) #1 Nutrition Diagnosis Inadequate oral intake Diagnosis Progress(for reassessment Continues documentation) Is patient on ventilator? No Is Patient Ambulatory and/or Out of Bed No REE-([facility]-confined to bed) 1326.792 Kcal/Kg value to use for calculation 35 Approximate Energy Requirements Using 1715 kcal/Kg Calculation Used for Recommendations Kcal/kg Additional Notes Pro needs 1.2-1.5g/k-74g/ day Fluid needs 1ml/kcal Nutrition Intervention Nutrition Support: Change TF back to Jevity 1.2 at 60ml/hr Flush 100ml q4h Kcal 1,728 Protein (gm) 80 Fluid (mL) 1,162 Fiber (gm) 26 Goal #1 TF tolerance Goal #2 TF to meet 100% energy and pro needs Goal #3 Wt maintenance and/or gain Follow-Up By: 07/16/20 Additional Comments F/U: stable TF, wt
[2020-03-29] MEDS: levETIRAcetam 500 MG/5 ML ORAL LIQD PO SCH ×2 (10:24→22:22)
[2020-03-29] MEDS: SERTRALINE 50 MG TAB PO SCH (10:25)
[2020-03-29] MEDS: QUEtiapine 100 MG TAB FEEDTUBE SCH ×2 (10:25→22:23)
[2020-03-29] MEDS: LANSOPRAZOLE 30 MG SOLUTAB FEEDTUBE SCH (10:25)
[2020-03-29] MEDS: hydrOXYzine PAMOATE 25 MG CAP PO SCH ×2 (10:26→22:24)
[2020-03-29] MEDS: NICOTINE 21 MG/24 HR PATCH TD SCH (10:26)
[2020-03-29] MEDS: MIRTAZAPINE 30 MG TAB PO SCH (10:26)
[2020-03-29] MEDS: IPRATROPIUM/ALBUTEROL SULFATE 3 ML AMPUL.NEB IH SCH ×3 (11:43→20:08)
[2020-03-29] MEDS: ENOXAPARIN 40 MG/0.4 ML INJ SUB-Q SCH (22:23)
[2020-03-30] MEDS: GLYCOPYRROLATE 1 MG TAB PO SCH ×3 (08:00→22:39)
--- NOTE | 2020-03-30 09:54 | Progress Note ---
Assessment and Plan Assessment and plan: 54-year-old female with a past medical history of Hypertension, Depression, Tobacco use Disorder, Alcohol use Disorder as confirmed by Daughter and pt's mother presents to the hospital status post cardiac arrest at home. EMS found pt in [facility]. They were unable to intubate patient with a ET tube because she was clenching down therefore Joe airway placed. Per the ED physician who evaluated pt, Patient presented with a pulse, intermittent respirations, and bagging support via Joe airway with O2 sat of 100%. Accu-Chek of 71 obtained by EMS. She was intubated in the ER and called for admission. Following admission patient was diagnosed with anoxic brain injury, sepsis with MRSA bacteremia and MSSA pneumonia, alcoholic liver disease. Family member initially wished for full code then changed to DNR, patient treated with IV antibiotics for sepsis, status post trach and PEG on 12/13/19. Weaned off from the vent and put on T- piece. Patient is uninsured, waiting for placement, guarded prognosis. Anoxic brain injury: suspected CT head: No acute abnormality. EEG ordered showed Generalized slowing. No seizures or epileptiform activity. -Patient now opening her eyes, can speak and able to follow command -As needed haldol for agitation Acute Respiratory failure -due to MSSA PNA -s/p intubation, s/p trach and PEG on 12/12 with mechanical ventilation, now on T-piece - CTA was done and negative for PE, - Echo quality is poor, showed diastolic dysfunction - continue weaning as tolerated -Continue appropriate and adequate tracheostomy care Tracheostomy site ulceration -Continue appropriate wound management try to keep area dry. Anemia, microcytic - Status post 3 units PRBC transfusion, H&H low stable Acute metabolic encephalopathy/toxic encephalopathy due to the above - cont supportive care Hyperammonemia - likely from liver disease related to EtOH abuse - Patient had elevated ammonia level and treated with lactulose Metabolic Acidosis -Alcohol ketoacidosis vs hypoprofusion -Continue to monitor ELevated LFTs, stable now - due to ischemic hepatitis. Leucocytosis with sepsis - Source MRSA bacteremia and MSSA pneumonia. UA showed pyuria. RUQ US showed no ascites. - Repeat TTE negative for vegetation. Completed 7 days of Ceftriaxone on 11/29/2019. -Treated with Abx vancomycin 1 gm IV q 12 hour total 2 week till 12/30/2019 Severe protein calorie malnutrition Dietitian following MSSA pneumonia: Status post vancomycin till 12/30/2019 Alcohol use Disorder - given ongoing Alcohol use almost daily, s/p IV Thiamine - monitor Severe hypokalemia -Repleted Seizure disorder: treated with Keppra H. Influenzae, tracheobronchitis, treated with abx Moderate to severe fecal impaction - will add stool softner DNR CODE STATUS Disposition: prognosis guarded. Family okay for DNR, PT recommended subacute rehab, discharge pending on placement. Negative for COVID 19 03/07: Returning to service no acute changes are noted. Continue current management while awaiting placement. Intermittent labs. Base of neck also around tracheostomy tube preventing downgrading. Continue appropriate wound care. 03/08: Plan of care unchanged continues on aerosol trach collar 28% of oxygen. Continue wound care management placement still pending status decision. 03/09: Continue current treatment plan. Continue aspiration precaution 03/10: Continue current management, Restraints as patient still pulling, awaiting placement 03/11: Continue supportive care, intermittent suctioning and pulmonary toilet. awaiting placement. 03/12: Continue supportive care, Give a bolus of fluids due to Hypercalcemia, Monitor Hyperkalemia with labs in am, No arrhythmia. Patient vomiting, concern for aspiration, Chest xray ordered and no active disease noted. Keep HOB >45% 03/13: No evidence of aspiration on xray. Continue supportive care. 03/14: Continue supportive care. Capping trials to start. Discussed with patients nursing and case management to continue daily PT by the Rehab team. 03/15: Discussed again with staff to start capping trial. 03/16: Do not see any indication the capping trial has started will discuss with respiratory therapist. Continue restraints. Still awaiting family decision patient has had some remarkable improvement considering the fact that she was able to stay around night without restraints. We will continue daily trial of this method. Discussed plan with nursing staff 03/17: Continue current care. Currently continue restraints. Continue current management. Continue physical therapy daily. 03/18: Capping trial successful and will possibly get decannulated today. Continue placement. 03/19: Now decannulated and doing well. Begin discharge planning. 03/20: Stable, no new complaints. 03/21: No new complaints. Continue supportive 03/22: No new complaints, still with some confusion, and agitation requiring restraints. Will require daily PT/OT and continue to work with Case management for placement 03/23: continue current management, daily PT/OT. stoma care. No new seizure, slow but gradual improvement noted daily 03/24: Mr. Amaya is a 55-year-old female who presented to the hospital was admitted post cardiac arrest at home she has remarkably done well been extubated and decannulated with stoma healing. She still does experience some intermittent delirious process and as a result is on restraints. I have discussed with nursing staff to see if they can provide a sitter for her and continue daily PT as this will aid in reintroducing her to the community. Case management is working on placement for her. Will check labs in a.m. 03/25/2020. Patient is s/p cardiac arrest, extubated and decannulated with stoma healing. Await placement per case management. 03/26/2020. Awaiting placement. 03/27/2020. Continue to work with case management for placement. Patient requir ing restraints for safety. 03/28/2020. Awaiting placement. 03/29/2020. Patient is s/p cardiac arrest, extubated and decannulated with stoma healing. Reconsulted physical therapy and speech therapy for reassessment and evaluation. Await placement per case management. 03/30/2020. Patient remains confused and in need of restraints for safety. Await placement per case management. History Interval history: No new issues overnight. Hospitalist Physical - Constitutional Vitals: Temp Pulse Resp BP Pulse Ox 98.1 F 104 H 18 132/86 95 03/30/20 05:12 03/30/20 05:12 03/30/20 05:12 03/30/20 05:12 03/30/20 05:12 General appearance: Present: no acute distress, cachectic, disheveled, other (Noncommunicative) - EENT Eyes: Present: PERRL, EOM intact ENT: hearing intact, clear oral mucosa, dentition normal - Neck Neck: Present: supple, normal ROM - Respiratory Respiratory effort: normal Respiratory: bilateral: CTA - Cardiovascular Rhythm: regular Heart Sounds: Present: S1 & S2. Absent: gallop, rub - Extremities Extremities: no ischemia, No edema, Full ROM - Abdominal General gastrointestinal: soft, non-tender, non-distended, normal bowel sounds - Integumentary Integumentary: Present: clear, warm, dry - Neurologic Neurologic: CNII-XII intact, moves all extremities HEART Score - HEART Score Troponin: Troponin T < 0.010 ng/mL (0.00-0.029) 11/22/19 23:27 Results - Labs CBC & Chem 7: 03/25/20 04:28 03/25/20 04:28 Labs: Laboratory Last Values WBC 9.0 K/mm3 (4.5-11.0) 03/25/20 04:28 RBC 3.65 M/mm3 (3.65-5.03) 03/25/20 04:28 Hgb 10.8 gm/dl (10.1-14.3) 03/25/20 04:28 Hct 32.5 % (30.3-42.9) 03/25/20 04:28 MCV 89 fl (79-97) 03/25/20 04:28 MCH 30 pg (28-32) 03/25/20 04:28 MCHC 33 % (30-34) 03/25/20 04:28 RDW 14.1 % (13.2-15.2) 03/25/20 04:28 Plt Count 423 K/mm3 (140-440) 03/25/20 04:28 Lymph % (Auto) 27.8 % (13.4-35.0) 03/06/20 03:37 [place] % (Auto) 9.1 % (0.0-7.3) H 03/06/20 03:37 Eos % (Auto) 2.8 % (0.0-4.3) 03/06/20 03:37 Baso % (Auto) 0.7 % (0.0-1.8) 03/06/20 03:37 Lymph # 2.2 K/mm3 (1.2-5.4) 03/06/20 03:37 [place] # 0.7 K/mm3 (0.0-0.8) 03/06/20 03:37 Eos # 0.2 K/mm3 (0.0-0.4) 03/06/20 03:37 Baso # 0.1 K/mm3 (0.0-0.1) 03/06/20 03:37 Add Manual Diff Complete 12/25/19 03:47 Total Counted 200 12/25/19 03:47 Seg Neutrophils % 59.6 % (40.0-70.0) 03/06/20 03:37 Seg Neuts % (Manual) 97.5 % (40.0-70.0) H 12/25/19 03:47 Band Neutrophils % 0 % 12/25/19 03:47 Lymphocytes % (Manual) 1.0 % (13.4-35.0) L 12/25/19 03:47 Reactive Lymphs % (Man) 0 % 12/25/19 03:47 Monocytes % (Manual) 1.5 % (0.0-7.3) 12/25/19 03:47 Eosinophils % (Manual) 0 % (0.0-4.3) 12/25/19 03:47 Basophils % (Manual) 0 % (0.0-1.8) 12/25/19 03:47 Metamyelocytes % 0 % 12/25/19 03:47 Myelocytes % 0 % 12/25/19 03:47 Promyelocytes % 0 % 12/25/19 03:47 Blast Cells % 0 % 12/25/19 03:47 Nucleated RBC % Not Reportable 12/25/19 03:47 Seg Neutrophils # 4.8 K/mm3 (1.8-7.7) 03/06/20 03:37 Seg Neutrophils # Man 35.3 K/mm3 (1.8-7.7) H 12/25/19 03:47 Band Neutrophils # 0.0 K/mm3 12/25/19 03:47 Lymphocytes # (Manual) 0.4 K/mm3 (1.2-5.4) L 12/25/19 03:47 Abs React Lymphs (Man) 0.0 K/mm3 12/25/19 03:47 Monocytes # (Manual) 0.5 K/mm3 (0.0-0.8) 12/25/19 03:47 Eosinophils # (Manual) 0.0 K/mm3 (0.0-0.4) 12/25/19 03:47 Basophils # (Manual) 0.0 K/mm3 (0.0-0.1) 12/25/19 03:47 Metamyelocytes # 0.0 K/mm3 12/25/19 03:47 Myelocytes # 0.0 K/mm3 12/25/19 03:47 Promyelocytes # 0.0 K/mm3 12/25/19 03:47 Blast Cells # 0.0 K/mm3 12/25/19 03:47 Pathologist Review 12/13/19 07:48 WBC Morphology Not Reportable 12/25/19 03:47 Hypersegmented Neuts Not Reportable 12/25/19 03:47 Hyposegmented Neuts Not Reportable 12/25/19 03:47 Hypogranular Neuts Not Reportable 12/25/19 03:47 Smudge Cells Not Reportable 12/25/19 03:47 Toxic Granulation Not Reportable 12/25/19 03:47 Toxic Vacuolation Not Reportable 12/25/19 03:47 Dohle Bodies Not Reportable 12/25/19 03:47 Pelger-Huet Anomaly Not Reportable 12/25/19 03:47 Dominique Rods Not Reportable 12/25/19 03:47 Platelet Estimate Consistent w auto 12/25/19 03:47 Clumped Platelets Not Reportable 12/25/19 03:47 Plt Clumps, EDTA Not Reportable 12/25/19 03:47 Large Platelets Not Reportable 12/25/19 03:47 Giant Platelets Not Reportable 12/25/19 03:47 Platelet Satelliting Not Reportable 12/25/19 03:47 Plt Morphology Comment Not Reportable 12/25/19 03:47 RBC Morphology Not Reportable 12/25/19 03:47 Dimorphic RBCs Not Reportable 12/25/19 03:47 Polychromasia Not Reportable 12/25/19 03:47 Hypochromasia Not Reportable 12/25/19 03:47 Poikilocytosis Not Reportable 12/25/19 03:47 Anisocytosis 1+ 12/25/19 03:47 Microcytosis Not Reportable 12/25/19 03:47 Macrocytosis Not Reportable 12/25/19 03:47 Spherocytes Not Reportable 12/25/19 03:47 Pappenheimer Bodies Not Reportable 12/25/19 03:47 Sickle Cells Not Reportable 12/25/19 03:47 Target Cells Not Reportable 12/25/19 03:47 Tear Drop Cells Not Reportable 12/25/19 03:47 Ovalocytes Not Reportable 12/25/19 03:47 Helmet Cells Not Reportable 12/25/19 03:47 Frias-Reddell Bodies Not Reportable 12/25/19 03:47 Weldon Rings Not Reportable 12/25/19 03:47 Jamshid Cells Not Reportable 12/25/19 03:47 Bite Cells Not Reportable 12/25/19 03:47 Crenated Cell Not Reportable 12/25/19 03:47 Elliptocytes Not Reportable 12/25/19 03:47 Acanthocytes (Spur) Not Reportable 12/25/19 03:47 Rouleaux Not Reportable 12/25/19 03:47 Hemoglobin C Crystals Not Reportable 12/25/19 03:47 Schistocytes Not Reportable 12/25/19 03:47 Malaria parasites Not Reportable 12/25/19 03:47 Gregg Bodies Not Reportable 12/25/19 03:47 Hem Pathologist Commnt No 12/25/19 03:47 PT 17.0 Sec. (12.2-14.9) H 11/23/19 03:47 INR 1.36 (0.87-1.13) H 11/23/19 03:47 APTT 128.2 Sec. (24.2-36.6) H* 11/23/19 03:47 Heparin Anti-Xa Level 0.31 U.I./ml (0.3-0.7) 11/23/19 09:03 ABG pH 7.433 pH Units (7.350-7.450) 03/08/20 13:25 ABG pCO2 40.2 mm Hg 03/08/20 13:25 ABG pO2 71.1 mm Hg (80.0-90.0) L 03/08/20 13:25 ABG HCO3 26.2 mmol/L (20.0-26.0) H 03/08/20 13:25 ABG O2 Saturation 97.0 % (95.0-99.0) 03/08/20 13:25 ABG O2 Content 11.0 (0.0-44) 03/08/20 13:25 ABG Base Excess 1.8 mmol/L (-2.0-3.0) 03/08/20 13:25 ABG Hemoglobin 8.2 gm/dl (12.0-16.0) L 03/08/20 13:25 ABG Carboxyhemoglobin 1.7 % (0.0-5.0) 03/08/20 13:25 ABG Methemoglobin 0.5 % (0.0-1.5) 03/08/20 13:25 Oxyhemoglobin 94.8 % (95.0-99.0) L 03/08/20 13:25 FiO2 21 % 03/08/20 13:25 Sodium 138 mmol/L (137-145) 03/25/20 04:28 Potassium 4.2 mmol/L (3.6-5.0) 03/25/20 04:28 Chloride 99.3 mmol/L (98-107) 03/25/20 04:28 Carbon Dioxide 28 mmol/L (22-30) 03/25/20 04:28 Anion Gap 15 mmol/L 03/25/20 04:28 BUN 23 mg/dL (7-17) H 03/25/20 04:28 Creatinine 0.5 mg/dL (0.7-1.2) L 03/25/20 04:28 Estimated GFR > 60 ml/min 03/25/20 04:28 BUN/Creatinine Ratio 46 % 03/25/20 04:28 Glucose 121 mg/dL (65-100) H 03/25/20 04:28 POC Glucose 110 (70-105) H 03/30/20 05:44 Lactic Acid 1.80 mmol/L (0.7-2.0) 11/25/19 05:05 Calcium 10.3 mg/dL (8.4-10.2) H 03/25/20 04:28 Ionized Calcium 4.5 mg/dL (4.8-5.6) L 11/23/19 06:32 Phosphorus 4.20 mg/dL (2.5-4.5) D 11/28/19 08:59 Magnesium 1.90 mg/dL (1.7-2.3) 02/28/20 03:40 Total Bilirubin 0.40 mg/dL (0.1-1.2) 12/13/19 07:48 AST 27 units/L (5-40) 12/13/19 07:48 ALT 26 units/L (7-56) 12/13/19 07:48 Alkaline Phosphatase 316 units/L (35-129) H 12/13/19 07:48 Ammonia 42.0 umol/L (25-60) 11/29/19 13:41 Total Creatine Kinase 139 units/L (30-135) H 11/22/19 23:27 CK-MB (CK-2) 8.3 ng/mL (0.0-4.0) H 11/22/19 23:27 CK-MB (CK-2) Rel Index 5.9 (0-4) H 11/22/19 23:27 Troponin T < 0.010 ng/mL (0.00-0.029) 11/22/19 23:27 Total Protein 6.8 g/dL (6.3-8.2) 12/13/19 07:48 Albumin 2.4 g/dL (3.9-5) L 12/13/19 07:48 Albumin/Globulin Ratio 0.5 % 12/13/19 07:48 Lipase 18 units/L (13-60) 11/23/19 00:34 Procalcitonin 1.09 ng/mL (<0.15) 11/23/19 04:53 TSH 1.010 mlU/mL (0.270-4.200) 02/12/20 07:36 Free T4 1.08 ng/dL (0.76-1.46) 02/12/20 07:36 Urine Color Yellow (Yellow) 12/16/19 Unknown Urine Turbidity Slightly-cloudy (Clear) 12/16/19 Unknown Urine pH 5.0 (5.0-7.0) 12/16/19 Unknown Ur Specific [place] 1.018 (1.003-1.030) 12/16/19 Unknown Urine Protein 30 mg/dl mg/dL (Negative) 12/16/19 Unknown Urine Glucose (UA) Neg mg/dL (Negative) 12/16/19 Unknown Urine Ketones Neg mg/dL (Negative) 12/16/19 Unknown Urine Blood Sm (Negative) 12/16/19 Unknown Urine Nitrite Neg (Negative) 12/16/19 Unknown Urine Bilirubin Neg (Negative) 12/16/19 Unknown Urine Urobilinogen < 2.0 mg/dL (<2.0) 12/16/19 Unknown Ur Leukocyte Esterase Neg (Negative) 12/16/19 Unknown Urine WBC (Auto) 6.0 /HPF (0.0-6.0) 12/16/19 Unknown Urine RBC (Auto) 9.0 /HPF (0.0-6.0) 12/16/19 Unknown U Epithel Cells (Auto) < 1.0 /HPF (0-13.0) 12/16/19 Unknown Urine Bacteria (Auto) 2+ /HPF (Negative) 11/22/19 23:17 Hyaline Casts 3 /LPF 12/16/19 Unknown Granular Casts 3 /LPF 12/16/19 Unknown Urine Mucus Few /HPF 12/16/19 Unknown Vancomycin Trough 33.8 ug/mL (5.0-20.0) H 12/21/19 08:56 Random Vancomycin 16.2 ug/mL (0-40.0) 12/24/19 04:31 Salicylates < 0.3 mg/dL (2.8-20.0) L 11/22/19 23:27 Urine Opiates Screen Presumptive negative 11/22/19 23:17 Urine Methadone Screen Presumptive negative 11/22/19 23:17 Acetaminophen < 5.0 ug/mL (10.0-30.0) L 11/22/19 23:27 Ur Barbiturates Screen Presumptive negative 11/22/19 23:17 Ur Phencyclidine Scrn Presumptive negative 11/22/19 23:17 Ur Amphetamines Screen Presumptive negative 11/22/19 23:17 U Benzodiazepines Scrn Presumptive negative 11/22/19 23:17 Urine Cocaine Screen Presumptive negative 11/22/19 23:17 U Marijuana (THC) Screen Presumptive negative 11/22/19 23:17 Drugs of Abuse Note Disclamer 11/22/19 23:17 Plasma/Serum Alcohol 0.08 % (0-0.07) H 11/22/19 23:27 Coronavirus (PCR) Negative (Negative) 02/05/20 07:50 Hepatitis A IgM Ab Non-reactive (NonReactive) 11/23/19 01:19 Hep Bs Antigen Non-reactive (Negative) 11/23/19 01:19 Hep B Core IgM Ab Non-reactive (NonReactive) 11/23/19 01:19 Hepatitis C Antibody Non-reactive (NonReactive) 11/23/19 01:19 Blood Type O POSITIVE 12/21/19 14:54 Antibody Screen Negative 12/21/19 14:54 Crossmatch See Detail 12/21/19 14:54 - Diagnostic Impressions Diagnostic Impressions: Echocardiogram 11/23/19 03:58 Transthoracic Echocardiogram Indication: Cardiac arrest BP: 131/89 HR: 115 Conclusions *The study quality is technically difficult. *Global left ventricular wall motion and contractility are within normal limits. *The estimated ejection fraction is 55-60%. *Abnormal left ventricular diastolic filling is observed, consistent with impaired relaxation. *There is no pericardial effusion. Findings Procedure Info: The study quality is technically difficult. The study was technically limited due to the patient's inability to lay in the left lateral decubitus position. Left Ventricle: The left ventricular chamber size is normal. There is no left ventricular hypertrophy. Global left ventricular wall motion and contractility are within normal limits. Global left ventricular systolic function is normal. The estimated ejection fraction is 55-60%. Abnormal left ventricular diastolic filling is observed, consistent with impaired relaxation. Left Atrium: The left atrial chamber size is normal. Aortic Valve: The aortic valve leaflets are mildly thickened. Mitral Valve: The mitral valve leaflets are mildly thickened. There is no evidence of mitral regurgitation. Tricuspid Valve: The tricuspid valve leaflets are normal. There is trace tricuspid regurgitation. The right ventricular systolic pressure is calculated at 33 mmHg. Pulmonic Valve: The pulmonic valve appears normal. Pericardium: The pericardium appears normal. There is no pericardial effusion. Aorta: The aorta appears normal. Venous: The inferior vena cava appears normal in size. Measurements Chambers 2D Name Value Normal Range IVSd (2D) 0.94 cm (0.6 - 1.1) LVPWd (2D) 0.81 cm (0.6 - 1.1) LVIDd (2D) 3.6 cm (3.7 - 5.6) LVIDs (2D) 2.27 cm (2 - 3.8) LV FS (2D) 36.93 % - EF Teichholz (2D) 67.76 % - Ao root diameter (2D) 3.03 cm (2 - 3.7) Volumes/Mass Name Value Normal Range LA ESV SP 4CH (A/L) 16.89 ml - LA ESV SP 4CH (MOD) 15.52 ml - Diastolic/Systolic Function Name Value Normal Range MV E-wave Vmax 0.55 m/sec - MV deceleration time 200.89 msec - MV A-wave Vmax 0.68 m/sec - MV E:A ratio 0.82 ratio - Aortic Valve Name Value Normal Range AV Vmax 1.1 m/sec - AV VTI 15.9 cm - AV peak gradient 4.86 mmHg - AV mean gradient 2.59 mmHg - LVOT diameter 2 cm - LVOT Vmax 1.03 m/sec - LVOT VTI 15.87 cm - LVOT peak gradient 4.24 mmHg - LVOT mean gradient 2.41 mmHg - SV LVOT 49.77 ml - JOSÉ MIGUEL (continuity Vmax) 2.93 cm2 - JOSÉ MIGUEL (continuity VTI) 3.13 cm2 - Tricuspid Valve Name Value Normal Range TR Vmax 2.74 m/sec - TR peak gradient 303 mmHg - RAP 3 mmHg - RVSP 33 mmHg - IVC diameter 1.77 cm (1.2 - 2.3) Pulmonic Valve/Qp:Qs Name Value Normal Range PV Vmax 0.77 m/sec - PV peak gradient 2.4 mmHg - PV acceleration time 114.18 msec - Echocardiogram Limited Views 12/17/19 14:53 Transthoracic Echocardiogram Indication: R/O Vegetations BP: 144/83 HR: 133 Conclusions *Global left ventricular systolic function is mildly decreased. *The estimated ejection fraction is 45-50%. *A trivial pericardial effusion is visualized. Findings Left Ventricle: The left ventricular chamber size is normal. Global left ventricular systolic function is mildly decreased. The estimated ejection fraction is 45-50%. Left Atrium: The left atrial chamber size is normal. Right Ventricle: The right ventricular cavity size is normal. Right Atrium: The right atrial cavity size is normal. Aortic Valve: The aortic valve is not well visualized. There is no evidence of aortic regurgitation. Mitral Valve: The mitral valve leaflets are mildly thickened. There is trace of mitral regurgitation. Tricuspid Valve: The tricuspid valve leaflets are mildly thickened. There is trace tricuspid regurgitation. The right ventricular systolic pressure is calculated at 29 mmHg. Pulmonic Valve: The pulmonic valve is not well visualized. There is no evidence of pulmonic regurgitation. Pericardium: A trivial pericardial effusion is visualized. Aorta: There is no dilatation of the ascending aorta. There is no dilatation of the aortic root. Venous: The inferior vena cava appears normal in size. There is a greater than 50% respiratory change in the inferior vena cava dimension. Measurements Chambers 2D Name Value Normal Range IVSd (2D) 0.83 cm (0.6 - 1.1) LVPWd (2D) 0.98 cm (0.6 - 1.1) LVIDd (2D) 3.71 cm (3.7 - 5.6) LVIDs (2D) 2.93 cm (2 - 3.8) LV FS (2D) 21.12 % - EF Teichholz (2D) 43.71 % - Ao root diameter (2D) 3.02 cm (2 - 3.7) Volumes/Mass Name Value Normal Range LA ESV SP 4CH (A/L) 36.8 ml - LA ESV SP 2CH (A/L) 45.89 ml - LA ESV BP (A/L) 42.35 ml - LA ESV BP (A/L) index 26.63 ml/m2 - LA ESV SP 4CH (MOD) 34.42 ml - LA ESV SP 2CH (MOD) 44.21 ml - LA ESV BP (MOD) 39.82 ml - LA ESV BP (MOD) index 25.05 ml/m2 - Aortic Valve Name Value Normal Range LVOT diameter 1.63 cm - Tricuspid Valve Name Value Normal Range TR Vmax 2.56 m/sec - TR peak gradient 26 mmHg - RAP 3 mmHg - RVSP 29 mmHg - IVC diameter 1.83 cm (1.2 - 2.3) Del[place] Cruz/IV: Voiding Method Incontinent IV Catheter Type [Forearm] Peripheral IV IV Catheter Type [Left Forearm INT / Saline Lock ] IV Catheter Type [Right INT / Saline Lock Antecubital] IV Catheter Type [Right Hand] INT / Saline Lock IV Catheter Type [Right Wrist] Peripheral IV IV Catheter Type [Left Wrist] Peripheral IV IV Catheter Type [Left Peripheral IV Antecubital] IV Catheter Type [Right INT / Saline Lock Forearm] IV Catheter Type [Left Hand] INT / Saline Lock Active Medications - Current Medications Current Medications: Generic Name Dose Route Start Last Admin Trade Name Freq PRN Reason Stop Dose Admin Acetaminophen 650 mg 12/06/19 10:25 03/25/20 00:17 Tylenol FEEDTUBE 650 mg Q6H PRN Administration TEMP >/=100.3 Albuterol 2.5 mg 03/25/20 19:25 Proventil IH Q4HRT PRN Shortness Of Breath Albuterol/Ipratropium 1 ampul 03/26/20 08:00 03/29/20 20:08 Duoneb *Not For Prn Use* IH 1 ampul TIDRT LUCHO Administration Lipase/Protease/Amylase 1 each 11/23/19 11:50 Pancreaze 10,500 Unit FEEDTUBE PRN PRN Use w/ sod bicarb for FT Bisacodyl 10 mg 02/06/20 13:57 Dulcolax NE QDAY PRN Constipation unrelieved by MOM Enoxaparin Sodium 40 mg 03/07/20 22:00 03/29/20 22:23 Enoxaparin SUB-Q 40 mg QDAY@2200 LUCHO Administration Glycopyrrolate 2 mg 12/31/19 20:00 03/29/20 22:22 Robinul PO 2 mg TID LUCHO Administration Haloperidol Lactate 5 mg 03/05/20 09:22 03/25/20 00:17 Haldol IM 5 mg Q6H PRN Administration Agitation Hydralazine HCl 10 mg 11/24/19 00:45 03/03/20 05:57 Apresoline IV 10 mg Q6H PRN Administration SBP > 160 Hydroxyzine Pamoate 25 mg 12/06/19 10:00 03/29/20 22:24 Vistaril PO 25 mg BID LUCHO Administration Lansoprazole 30 mg 11/27/19 10:00 03/29/20 10:25 Prevacid Solutab FEEDTUBE 30 mg QDAY LUCHO Administration Levetiracetam 500 mg 11/29/19 10:00 03/29/20 22:22 Keppra PO 500 mg BID LUCHO Administration Mirtazapine 30 mg 12/06/19 10:00 03/29/20 10:26 Remeron PO 30 mg DAILY LUCHO Administration Nicotine 21 mg 02/16/20 13:00 03/29/20 10:26 Habitrol TD 21 mg QDAY LUCHO Administration Ondansetron HCl 4 mg 12/10/19 07:53 02/25/20 02:51 Zofran IV 4 mg Q4H PRN Administration Nausea And Vomiting Polyethylene Glycol 17 gm 02/06/20 13:57 Miralax 3350 PO QDAY PRN Constipation Quetiapine Fumarate 100 mg 03/06/20 10:00 03/29/20 22:23 Seroquel FEEDTUBE 100 mg BID LUCHO Administration Scopolamine 1 each 02/08/20 15:00 03/27/20 10:29 Transderm-Scop TD 1 each Q3D LUCHO Administration Sertraline HCl 25 mg 01/01/20 10:00 03/29/20 10:25 Zoloft PO 25 mg QDAY LUCHO Administration Simple Syrup 15 ml 11/23/19 11:50 Simple Syrup FEEDTUBE PRN PRN Hypoglycemia BG<70 Simple Syrup 30 ml 11/23/19 11:50 Simple Syrup FEEDTUBE PRN PRN Hypoglycemia Sodium Bicarbonate 325 mg 11/23/19 11:50 Sodium Bicarbonate FEEDTUBE PRN PRN For Clogged Feeding Tube Nutrition/Malnutrition Assess - Dietary Evaluation Nutrition/Malnutrition Findings: Nutrition Notes Start: 11/23/19 11:29 Freq: Status: Active Protocol: Document 03/27/20 10:42 EVELIA (Rec: 03/27/20 10:48 [email or web address] [email or web address]) Nutrition Notes Initial or Follow up Reassessment Other Pertinent Diagnosis s/p Cardiac arrest, acute metabolic encephalopathy Current Diet Jevity 1.2 at 60ml/hr Labs/Tests Reviewed Pertinent Medications Reviewed Height 5 ft 6 in Weight 49 kg [place] Body Weight (kg) 59.09 BMI 17.4 Subjective/Other Information RD spoke with RN via telephone this am (10:39). Pt tolerating TF at goal rate. Pt receiving Osmolite 1.5 at this time, however, Jevity 1.2 back in stock today. Pt awaiting placement. Burn Absent Trauma Absent #2 Nutrition Diagnosis Malnutrition Diagnosis Progress(for reassessment Continues documentation) #1 Nutrition Diagnosis Inadequate oral intake Diagnosis Progress(for reassessment Continues documentation) Is patient on ventilator? No Is Patient Ambulatory and/or Out of Bed No REE-([facility]-confined to bed) 1326.792 Kcal/Kg value to use for calculation 35 Approximate Energy Requirements Using 1715 kcal/Kg Calculation Used for Recommendations Kcal/kg Additional Notes Pro needs 1.2-1.5g/k-74g/ day Fluid needs 1ml/kcal Nutrition Intervention Nutrition Support: Change TF back to Jevity 1.2 at 60ml/hr Flush 100ml q4h Kcal 1,728 Protein (gm) 80 Fluid (mL) 1,162 Fiber (gm) 26 Goal #1 TF tolerance Goal #2 TF to meet 100% energy and pro needs Goal #3 Wt maintenance and/or gain Follow-Up By: 04/03/20 Additional Comments F/U: stable TF, wt
[2020-03-30] MEDS: LANSOPRAZOLE 30 MG SOLUTAB FEEDTUBE SCH (10:23)
[2020-03-30] MEDS: SERTRALINE 50 MG TAB PO SCH (10:23)
[2020-03-30] MEDS: QUEtiapine 100 MG TAB FEEDTUBE SCH ×2 (10:23→21:47)
[2020-03-30] MEDS: NICOTINE 21 MG/24 HR PATCH TD SCH (10:24)
[2020-03-30] MEDS: MIRTAZAPINE 30 MG TAB PO SCH (10:24)
[2020-03-30] MEDS: levETIRAcetam 500 MG/5 ML ORAL LIQD PO SCH ×2 (10:24→21:47)
[2020-03-30] MEDS: hydrOXYzine PAMOATE 25 MG CAP PO SCH ×2 (10:24→21:47)
[2020-03-30] MEDS: SCOPOLAMINE TRANSDERMAL PATCH 72 HR TD SCH (10:24)
[2020-03-30] MEDS: IPRATROPIUM/ALBUTEROL SULFATE 3 ML AMPUL.NEB IH SCH ×2 (13:13→20:53)
--- NOTE | 2020-03-30 13:35 | Progress Note ---
Assessment and Plan Patient confused and agitated to day.Patient Decanulated. Patient not using her O2. Patient is on room air. O2 saturation 77%. Recommend to keep O2 all the time. No acute respiratory distress. Recommend physical therapy. - Patient Problems (1) Acute respiratory failure Current Visit: Yes Status: Acute Qualifiers: Respiratory failure complication: hypoxia Qualified Code(s): J96.01 - Acute respiratory failure with hypoxia Plan to address problem: Patient decanulated . O2 3 litres via nasal canula. Aspiration precautions. Continue albuterol/atrovent aerosol treatments q 6 hours. (2) Alcohol abuse Current Visit: Yes Status: Acute Plan to address problem: Management as per primary care. (3) Cardiac arrest with successful resuscitation Current Visit: Yes Status: Acute Plan to address problem: Patient successfully resucitated. S/P tracheostomy, Decanulated. O2 3 litres via nasal canula. (4) Increased ammonia level Current Visit: Yes Status: Acute Plan to address problem: Management as per primary care. (5) Seizure disorder Current Visit: Yes Status: Acute Plan to address problem: Management as per primary care and neurology. (6) HTN (hypertension) Current Visit: No Status: Acute Plan to address problem: Management as per primary care. Subjective Date of service: 03/30/20 Principal diagnosis: Ac cardiopulmonary arrest; Ac hypoxemic resp failure; Acute encephalopathy Interval history: Patient confused and agitated to day.Patient Decanulated. Patient not using her O2. Patient is on room air. O2 saturation 77%. Recommend to keep O2 all the time. No acute respiratory distress. Recommend physical therapy. Objective Vital Signs - 12hr 03/30/20 03/30/20 03/30/20 05:12 08:13 10:00 Temperature 98.1 F Pulse Rate 104 H 94 H 112 H Pulse Rate [ 112 H Apical] Pulse Rate [ 112 H From Monitor] Pulse Rate [ 112 H Left Dorsalis Pedis] Pulse Rate [ 112 H Left Radial] Pulse Rate [ 112 H Right Dorsalis Pedis] Pulse Rate [ 112 H Right Radial] Respiratory 18 19 Rate Blood Pressure 132/86 146/89 O2 Sat by Pulse 95 90 98 Oximetry 03/30/20 11:40 Temperature Pulse Rate 59 L Pulse Rate [ Apical] Pulse Rate [ From Monitor] Pulse Rate [ Left Dorsalis Pedis] Pulse Rate [ Left Radial] Pulse Rate [ Right Dorsalis Pedis] Pulse Rate [ Right Radial] Respiratory Rate Blood Pressure 130/87 O2 Sat by Pulse 77 L Oximetry Constitutional: no acute distress, alert, agitated Eyes: non-icteric ENT: oropharynx moist, other (Patient decannulated.) Neck: supple, no lymphadenopathy, no JVD Effort: normal Ascultation: Bilateral: diminished breath sounds, rhonchi Percussion: Bilateral: not dull Cardiovascular: regular rate and rhythm (tachycardia), other (S1,S2) Gastrointestinal: normoactive bowel sounds, soft, non-tender, non-distended Integumentary: normal Extremities: no cyanosis, no edema, pulses normal, no ischemia or petechiae Neurologic: non-focal exam, pupils equal and round, CN II-XII normal Psychiatric: affect normal CBC and BMP: 03/25/20 04:28 03/25/20 04:28 ABG, PT/INR, D-dimer: ABG ABG pH 7.433 pH Units (7.350-7.450) 03/08/20 13:25 ABG pCO2 40.2 mm Hg 03/08/20 13:25 ABG pO2 71.1 mm Hg (80.0-90.0) L 03/08/20 13:25 ABG O2 Saturation 97.0 % (95.0-99.0) 03/08/20 13:25 PT/INR, D-dimer PT 17.0 Sec. (12.2-14.9) H 11/23/19 03:47 INR 1.36 (0.87-1.13) H 11/23/19 03:47 Abnormal lab findings: Abnormal Labs 11/22/19 11/22/19 11/22/19 23:17 23:18 23:27 WBC 21.2 H RBC 3.59 L Hgb 9.8 L Hct MCH 27 L RDW 18.6 H Plt Count 454 H Lymph % (Auto) [place] % (Auto) [place] # Baso # Seg Neutrophils % Seg Neuts % (Manual) 86.0 H Lymphocytes % (Manual) 9.0 L Monocytes % (Manual) Seg Neutrophils # Seg Neutrophils # Man 18.2 H Lymphocytes # (Manual) Monocytes # (Manual) 1.1 H Eosinophils # (Manual) Basophils # (Manual) PT INR APTT ABG pH ABG pO2 ABG HCO3 ABG O2 Saturation ABG Base Excess ABG Hemoglobin Oxyhemoglobin Sodium Potassium Chloride Carbon Dioxide BUN Creatinine Glucose POC Glucose 53 L Lactic Acid Calcium Ionized Calcium Phosphorus Magnesium Total Bilirubin AST ALT Alkaline Phosphatase Ammonia Total Creatine Kinase CK-MB (CK-2) CK-MB (CK-2) Rel Index Total Protein Albumin Urine WBC (Auto) 40.0 H Vancomycin Trough Salicylates Acetaminophen Plasma/Serum Alcohol Crossmatch 11/22/19 11/22/19 11/22/19 23:27 23:27 23:27 WBC RBC Hgb Hct MCH RDW Plt Count Lymph % (Auto) [place] % (Auto) [place] # Baso # Seg Neutrophils % Seg Neuts % (Manual) Lymphocytes % (Manual) Monocytes % (Manual) Seg Neutrophils # Seg Neutrophils # Man Lymphocytes # (Manual) Monocytes # (Manual) Eosinophils # (Manual) Basophils # (Manual) PT INR APTT ABG pH ABG pO2 ABG HCO3 ABG O2 Saturation ABG Base Excess ABG Hemoglobin Oxyhemoglobin Sodium Potassium 2.4 L* Chloride 85.1 L Carbon Dioxide 19 L BUN Creatinine 0.5 L Glucose 261 H POC Glucose Lactic Acid Calcium Ionized Calcium Phosphorus Magnesium Total Bilirubin AST 609 H ALT 152 H Alkaline Phosphatase 160 H Ammonia 117.0 H Total Creatine Kinase 139 H CK-MB (CK-2) 8.3 H CK-MB (CK-2) Rel Index 5.9 H Total Protein Albumin 3.6 L Urine WBC (Auto) Vancomycin Trough Salicylates < 0.3 L Acetaminophen Plasma/Serum Alcohol Crossmatch 11/22/19 11/22/19 11/23/19 23:27 23:27 01:10 WBC RBC Hgb Hct MCH RDW Plt Count Lymph % (Auto) [place] % (Auto) [place] # Baso # Seg Neutrophils % Seg Neuts % (Manual) Lymphocytes % (Manual) Monocytes % (Manual) Seg Neutrophils # Seg Neutrophils # Man Lymphocytes # (Manual) Monocytes # (Manual) Eosinophils # (Manual) Basophils # (Manual) PT INR APTT ABG pH 7.273 L ABG pO2 209.7 H ABG HCO3 ABG O2 Saturation 99.2 H ABG Base Excess -3.9 L ABG Hemoglobin 10.6 L Oxyhemoglobin 93.9 L Sodium Potassium Chloride Carbon Dioxide BUN Creatinine Glucose POC Glucose Lactic Acid Calcium Ionized Calcium Phosphorus Magnesium Total Bilirubin AST ALT Alkaline Phosphatase Ammonia Total Creatine Kinase CK-MB (CK-2) CK-MB (CK-2) Rel Index Total Protein Albumin Urine WBC (Auto) Vancomycin Trough Salicylates Acetaminophen < 5.0 L Plasma/Serum Alcohol 0.08 H Crossmatch 11/23/19 11/23/19 11/23/19 01:19 01:19 03:47 WBC RBC Hgb Hct MCH RDW Plt Count Lymph % (Auto) [place] % (Auto) [place] # Baso # Seg Neutrophils % Seg Neuts % (Manual) Lymphocytes % (Manual) Monocytes % (Manual) Seg Neutrophils # Seg Neutrophils # Man Lymphocytes # (Manual) Monocytes # (Manual) Eosinophils # (Manual) Basophils # (Manual) PT 16.3 H INR 1.29 H APTT ABG pH ABG pO2 ABG HCO3 ABG O2 Saturation ABG Base Excess ABG Hemoglobin Oxyhemoglobin Sodium Potassium Chloride Carbon Dioxide BUN Creatinine Glucose POC Glucose Lactic Acid 2.10 H* 5.00 H* Calcium Ionized Calcium Phosphorus Magnesium Total Bilirubin AST ALT Alkaline Phosphatase Ammonia Total Creatine Kinase CK-MB (CK-2) CK-MB (CK-2) Rel Index Total Protein Albumin Urine WBC (Auto) Vancomycin Trough Salicylates Acetaminophen Plasma/Serum Alcohol Crossmatch 11/23/19 11/23/19 11/23/19 03:47 03:47 04:53 WBC RBC Hgb 9.4 L Hct MCH RDW Plt Count Lymph % (Auto) [place] % (Auto) [place] # Baso # Seg Neutrophils % Seg Neuts % (Manual) Lymphocytes % (Manual) Monocytes % (Manual) Seg Neutrophils # Seg Neutrophils # Man Lymphocytes # (Manual) Monocytes # (Manual) Eosinophils # (Manual) Basophils # (Manual) PT 17.0 H INR 1.36 H APTT 128.2 H* ABG pH ABG pO2 ABG HCO3 ABG O2 Saturation ABG Base Excess ABG Hemoglobin Oxyhemoglobin Sodium Potassium Chloride Carbon Dioxide 18 L BUN Creatinine 0.5 L Glucose 105 H POC Glucose Lactic Acid Calcium 8.3 L Ionized Calcium Phosphorus 2.40 L Magnesium Total Bilirubin 1.30 H AST 761 H ALT 158 H Alkaline Phosphatase 143 H Ammonia Total Creatine Kinase CK-MB (CK-2) CK-MB (CK-2) Rel Index Total Protein Albumin 2.8 L Urine WBC (Auto) Vancomycin Trough Salicylates Acetaminophen Plasma/Serum Alcohol Crossmatch 11/23/19 11/23/19 11/23/19 05:12 06:32 06:32 WBC 16.8 H RBC 3.31 L Hgb 8.9 L Hct 28.7 L MCH 27 L RDW 18.6 H Plt Count Lymph % (Auto) [place] % (Auto) [place] # Baso # Seg Neutrophils % Seg Neuts % (Manual) 94.0 H Lymphocytes % (Manual) 1.0 L Monocytes % (Manual) Seg Neutrophils # Seg Neutrophils # Man 15.8 H Lymphocytes # (Manual) 0.2 L Monocytes # (Manual) Eosinophils # (Manual) Basophils # (Manual) PT INR APTT ABG pH ABG pO2 ABG HCO3 ABG O2 Saturation ABG Base Excess -3.2 L ABG Hemoglobin 9.0 L Oxyhemoglobin 93.6 L Sodium Potassium Chloride Carbon Dioxide BUN Creatinine Glucose POC Glucose Lactic Acid Calcium Ionized Calcium 4.5 L Phosphorus Magnesium Total Bilirubin AST ALT Alkaline Phosphatase Ammonia Total Creatine Kinase CK-MB (CK-2) CK-MB (CK-2) Rel Index Total Protein Albumin Urine WBC (Auto) Vancomycin Trough Salicylates Acetaminophen Plasma/Serum Alcohol Crossmatch 11/23/19 11/24/19 11/24/19 06:32 04:35 04:35 WBC RBC Hgb Hct MCH RDW Plt Count Lymph % (Auto) [place] % (Auto) [place] # Baso # Seg Neutrophils % Seg Neuts % (Manual) Lymphocytes % (Manual) Monocytes % (Manual) Seg Neutrophils # Seg Neutrophils # Man Lymphocytes # (Manual) Monocytes # (Manual) Eosinophils # (Manual) Basophils # (Manual) PT INR APTT ABG pH ABG pO2 ABG HCO3 ABG O2 Saturation ABG Base Excess ABG Hemoglobin Oxyhemoglobin Sodium Potassium Chloride Carbon Dioxide BUN Creatinine Glucose POC Glucose Lactic Acid 3.30 H* Calcium Ionized Calcium Phosphorus Magnesium 1.40 L Total Bilirubin AST ALT Alkaline Phosphatase Ammonia 98.0 H Total Creatine Kinase CK-MB (CK-2) CK-MB (CK-2) Rel Index Total Protein Albumin Urine WBC (Auto) Vancomycin Trough Salicylates Acetaminophen Plasma/Serum Alcohol Crossmatch 11/24/19 11/25/19 11/25/19 05:22 04:34 05:05 WBC 17.3 H RBC 2.88 L Hgb 7.8 L Hct 24.6 L MCH 27 L RDW 18.5 H Plt Count Lymph % (Auto) 7.7 L [place] % (Auto) 9.7 H [place] # 1.7 H Baso # Seg Neutrophils % 82.2 H Seg Neuts % (Manual) Lymphocytes % (Manual) Monocytes % (Manual) Seg Neutrophils # 14.2 H Seg Neutrophils # Man Lymphocytes # (Manual) Monocytes # (Manual) Eosinophils # (Manual) Basophils # (Manual) PT INR APTT ABG pH 7.475 H ABG pO2 ABG HCO3 29.4 H 32.3 H ABG O2 Saturation ABG Base Excess 5.4 H 6.9 H ABG Hemoglobin 9.0 L 10.6 L Oxyhemoglobin 94.3 L Sodium Potassium Chloride Carbon Dioxide BUN Creatinine Glucose POC Glucose Lactic Acid Calcium Ionized Calcium Phosphorus Magnesium Total Bilirubin AST ALT Alkaline Phosphatase Ammonia Total Creatine Kinase CK-MB (CK-2) CK-MB (CK-2) Rel Index Total Protein Albumin Urine WBC (Auto) Vancomycin Trough Salicylates Acetaminophen Plasma/Serum Alcohol Crossmatch 11/25/19 11/25/19 11/26/19 05:05 22:46 03:31 WBC RBC Hgb Hct MCH RDW Plt Count Lymph % (Auto) [place] % (Auto) [place] # Baso # Seg Neutrophils % Seg Neuts % (Manual) Lymphocytes % (Manual) Monocytes % (Manual) Seg Neutrophils # Seg Neutrophils # Man Lymphocytes # (Manual) Monocytes # (Manual) Eosinophils # (Manual) Basophils # (Manual) PT INR APTT ABG pH 7.459 H ABG pO2 ABG HCO3 34.2 H ABG O2 Saturation ABG Base Excess 9.4 H ABG Hemoglobin 7.6 L Oxyhemoglobin 94.8 L Sodium 152 H D 147 H Potassium 2.3 L* D 2.8 L* D Chloride 107.8 H Carbon Dioxide 31 H D 33 H BUN Creatinine 0.6 L 0.6 L Glucose 148 H 177 H POC Glucose Lactic Acid Calcium Ionized Calcium Phosphorus Magnesium Total Bilirubin AST 105 H ALT 71 H Alkaline Phosphatase 155 H Ammonia Total Creatine Kinase CK-MB (CK-2) CK-MB (CK-2) Rel Index Total Protein 5.2 L D Albumin 2.9 L Urine WBC (Auto) Vancomycin Trough Salicylates Acetaminophen Plasma/Serum Alcohol Crossmatch 11/26/19 11/26/19 11/27/19 08:24 08:24 04:20 WBC 12.0 H RBC 3.00 L Hgb 8.0 L 9.3 L Hct 25.9 L 29.7 L MCH 27 L RDW 18.5 H Plt Count Lymph % (Auto) [place] % (Auto) [place] # Baso # Seg Neutrophils % Seg Neuts % (Manual) 89.0 H Lymphocytes % (Manual) 4.0 L Monocytes % (Manual) Seg Neutrophils # Seg Neutrophils # Man 10.7 H Lymphocytes # (Manual) 0.5 L Monocytes # (Manual) Eosinophils # (Manual) Basophils # (Manual) PT INR APTT ABG pH ABG pO2 ABG HCO3 ABG O2 Saturation ABG Base Excess ABG Hemoglobin Oxyhemoglobin Sodium 146 H Potassium 3.4 L D Chloride Carbon Dioxide BUN Creatinine 0.5 L Glucose 165 H POC Glucose Lactic Acid Calcium Ionized Calcium Phosphorus Magnesium Total Bilirubin AST 57 H ALT Alkaline Phosphatase 166 H Ammonia Total Creatine Kinase CK-MB (CK-2) CK-MB (CK-2) Rel Index Total Protein Albumin 2.9 L Urine WBC (Auto) Vancomycin Trough Salicylates Acetaminophen Plasma/Serum Alcohol Crossmatch 11/27/19 11/27/19 11/27/19 04:28 04:28 04:42 WBC RBC Hgb Hct MCH RDW Plt Count Lymph % (Auto) [place] % (Auto) [place] # Baso # Seg Neutrophils % Seg Neuts % (Manual) Lymphocytes % (Manual) Monocytes % (Manual) Seg Neutrophils # Seg Neutrophils # Man Lymphocytes # (Manual) Monocytes # (Manual) Eosinophils # (Manual) Basophils # (Manual) PT INR APTT ABG pH 7.470 H ABG pO2 74.0 L ABG HCO3 33.8 H ABG O2 Saturation ABG Base Excess 9.1 H ABG Hemoglobin 8.7 L Oxyhemoglobin 94.7 L Sodium 146 H Potassium 2.9 L* Chloride Carbon Dioxide BUN 25 H Creatinine Glucose 213 H POC Glucose Lactic Acid Calcium Ionized Calcium Phosphorus 1.00 L Magnesium Total Bilirubin AST ALT Alkaline Phosphatase Ammonia Total Creatine Kinase CK-MB (CK-2) CK-MB (CK-2) Rel Index Total Protein Albumin Urine WBC (Auto) Vancomycin Trough Salicylates Acetaminophen Plasma/Serum Alcohol Crossmatch 11/27/19 11/27/19 11/27/19 05:37 12:20 15:46 WBC RBC Hgb Hct MCH RDW Plt Count Lymph % (Auto) [place] % (Auto) [place] # Baso # Seg Neutrophils % Seg Neuts % (Manual) Lymphocytes % (Manual) Monocytes % (Manual) Seg Neutrophils # Seg Neutrophils # Man Lymphocytes # (Manual) Monocytes # (Manual) Eosinophils # (Manual) Basophils # (Manual) PT INR APTT ABG pH ABG pO2 ABG HCO3 ABG O2 Saturation ABG Base Excess ABG Hemoglobin Oxyhemoglobin Sodium 146 H Potassium 3.5 L D Chloride Carbon Dioxide BUN 24 H Creatinine 0.6 L Glucose 187 H POC Glucose 117 H 220 H Lactic Acid Calcium Ionized Calcium Phosphorus Magnesium Total Bilirubin AST ALT Alkaline Phosphatase Ammonia Total Creatine Kinase CK-MB (CK-2) CK-MB (CK-2) Rel Index Total Protein Albumin Urine WBC (Auto) Vancomycin Trough Salicylates Acetaminophen Plasma/Serum Alcohol Crossmatch 11/27/19 11/28/19 11/28/19 17:28 05:00 05:02 WBC RBC Hgb Hct MCH RDW Plt Count Lymph % (Auto) [place] % (Auto) [place] # Baso # Seg Neutrophils % Seg Neuts % (Manual) Lymphocytes % (Manual) Monocytes % (Manual) Seg Neutrophils # Seg Neutrophils # Man Lymphocytes # (Manual) Monocytes # (Manual) Eosinophils # (Manual) Basophils # (Manual) PT INR APTT ABG pH ABG pO2 72.4 L ABG HCO3 33.6 H ABG O2 Saturation 94.1 L ABG Base Excess 7.3 H ABG Hemoglobin Oxyhemoglobin 91.8 L Sodium 146 H Potassium 3.3 L Chloride Carbon Dioxide BUN 25 H Creatinine 0.6 L Glucose 176 H POC Glucose 198 H Lactic Acid Calcium Ionized Calcium Phosphorus Magnesium Total Bilirubin AST ALT Alkaline Phosphatase Ammonia Total Creatine Kinase CK-MB (CK-2) CK-MB (CK-2) Rel Index Total Protein Albumin Urine WBC (Auto) Vancomycin Trough Salicylates Acetaminophen Plasma/Serum Alcohol Crossmatch 11/28/19 11/28/19 11/29/19 05:02 18:55 10:43 WBC 15.2 H 19.0 H RBC 3.06 L 3.01 L Hgb 8.3 L 8.3 L Hct 27.0 L 26.4 L MCH 27 L RDW 19.0 H 19.7 H Plt Count 479 H 611 H Lymph % (Auto) [place] % (Auto) [place] # Baso # Seg Neutrophils % Seg Neuts % (Manual) 92.0 H Lymphocytes % (Manual) 2.0 L Monocytes % (Manual) Seg Neutrophils # Seg Neutrophils # Man 14.0 H Lymphocytes # (Manual) 0.3 L Monocytes # (Manual) Eosinophils # (Manual) Basophils # (Manual) PT INR APTT ABG pH ABG pO2 ABG HCO3 ABG O2 Saturation ABG Base Excess ABG Hemoglobin Oxyhemoglobin Sodium Potassium Chloride Carbon Dioxide BUN Creatinine Glucose POC Glucose 138 H Lactic Acid Calcium Ionized Calcium Phosphorus Magnesium Total Bilirubin AST ALT Alkaline Phosphatase Ammonia Total Creatine Kinase CK-MB (CK-2) CK-MB (CK-2) Rel Index Total Protein Albumin Urine WBC (Auto) Vancomycin Trough Salicylates Acetaminophen Plasma/Serum Alcohol Crossmatch 11/29/19 11/29/19 11/29/19 10:43 12:27 19:25 WBC RBC Hgb Hct MCH RDW Plt Count Lymph % (Auto) [place] % (Auto) [place] # Baso # Seg Neutrophils % Seg Neuts % (Manual) Lymphocytes % (Manual) Monocytes % (Manual) Seg Neutrophils # Seg Neutrophils # Man Lymphocytes # (Manual) Monocytes # (Manual) Eosinophils # (Manual) Basophils # (Manual) PT INR APTT ABG pH ABG pO2 ABG HCO3 ABG O2 Saturation ABG Base Excess ABG Hemoglobin Oxyhemoglobin Sodium Potassium 2.8 L* Chloride Carbon Dioxide BUN 20 H Creatinine 0.5 L Glucose 121 H POC Glucose 128 H 120 H Lactic Acid Calcium Ionized Calcium Phosphorus Magnesium Total Bilirubin AST ALT Alkaline Phosphatase Ammonia Total Creatine Kinase CK-MB (CK-2) CK-MB (CK-2) Rel Index Total Protein Albumin Urine WBC (Auto) Vancomycin Trough Salicylates Acetaminophen Plasma/Serum Alcohol Crossmatch 11/29/19 11/30/19 11/30/19 23:46 04:10 05:02 WBC RBC Hgb Hct MCH RDW Plt Count Lymph % (Auto) [place] % (Auto) [place] # Baso # Seg Neutrophils % Seg Neuts % (Manual) Lymphocytes % (Manual) Monocytes % (Manual) Seg Neutrophils # Seg Neutrophils # Man Lymphocytes # (Manual) Monocytes # (Manual) Eosinophils # (Manual) Basophils # (Manual) PT INR APTT ABG pH ABG pO2 76.3 L ABG HCO3 32.5 H ABG O2 Saturation ABG Base Excess 6.9 H ABG Hemoglobin 8.0 L Oxyhemoglobin 92.6 L Sodium Potassium Chloride Carbon Dioxide BUN Creatinine Glucose POC Glucose 116 H 128 H Lactic Acid Calcium Ionized Calcium Phosphorus Magnesium Total Bilirubin AST ALT Alkaline Phosphatase Ammonia Total Creatine Kinase CK-MB (CK-2) CK-MB (CK-2) Rel Index Total Protein Albumin Urine WBC (Auto) Vancomycin Trough Salicylates Acetaminophen Plasma/Serum Alcohol Crossmatch 11/30/19 11/30/19 11/30/19 05:25 05:25 12:59 WBC 18.4 H RBC 3.10 L Hgb 8.5 L Hct 27.5 L MCH 27 L RDW 20.9 H Plt Count 691 H Lymph % (Auto) 7.1 L [place] % (Auto) 7.7 H [place] # 1.4 H Baso # Seg Neutrophils % 83.4 H Seg Neuts % (Manual) Lymphocytes % (Manual) Monocytes % (Manual) Seg Neutrophils # 15.4 H Seg Neutrophils # Man Lymphocytes # (Manual) Monocytes # (Manual) Eosinophils # (Manual) Basophils # (Manual) PT INR APTT ABG pH ABG pO2 ABG HCO3 ABG O2 Saturation ABG Base Excess ABG Hemoglobin Oxyhemoglobin Sodium 146 H Potassium Chloride 107.2 H Carbon Dioxide BUN Creatinine 0.5 L Glucose 132 H POC Glucose 124 H Lactic Acid Calcium Ionized Calcium Phosphorus Magnesium Total Bilirubin AST 246 H ALT 274 H Alkaline Phosphatase 203 H Ammonia Total Creatine Kinase CK-MB (CK-2) CK-MB (CK-2) Rel Index Total Protein 5.4 L Albumin 2.9 L Urine WBC (Auto) Vancomycin Trough Salicylates Acetaminophen Plasma/Serum Alcohol Crossmatch 11/30/19 12/01/19 12/01/19 17:53 00:05 05:10 WBC RBC Hgb Hct MCH RDW Plt Count Lymph % (Auto) [place] % (Auto) [place] # Baso # Seg Neutrophils % Seg Neuts % (Manual) Lymphocytes % (Manual) Monocytes % (Manual) Seg Neutrophils # Seg Neutrophils # Man Lymphocytes # (Manual) Monocytes # (Manual) Eosinophils # (Manual) Basophils # (Manual) PT INR APTT ABG pH ABG pO2 ABG HCO3 ABG O2 Saturation ABG Base Excess ABG Hemoglobin Oxyhemoglobin Sodium Potassium Chloride Carbon Dioxide BUN Creatinine Glucose POC Glucose 113 H 143 H 145 H Lactic Acid Calcium Ionized Calcium Phosphorus Magnesium Total Bilirubin AST ALT Alkaline Phosphatase Ammonia Total Creatine Kinase CK-MB (CK-2) CK-MB (CK-2) Rel Index Total Protein Albumin Urine WBC (Auto) Vancomycin Trough Salicylates Acetaminophen Plasma/Serum Alcohol Crossmatch 12/01/19 12/01/19 12/01/19 05:33 08:23 08:23 WBC 22.7 H RBC 2.88 L Hgb 7.9 L Hct 25.2 L MCH 27 L RDW 21.0 H Plt Count 732 H Lymph % (Auto) [place] % (Auto) [place] # Baso # Seg Neutrophils % Seg Neuts % (Manual) 91.0 H Lymphocytes % (Manual) 3.0 L Monocytes % (Manual) Seg Neutrophils # Seg Neutrophils # Man 20.7 H Lymphocytes # (Manual) 0.7 L Monocytes # (Manual) 1.1 H Eosinophils # (Manual) Basophils # (Manual) PT INR APTT ABG pH ABG pO2 68.6 L ABG HCO3 34.1 H ABG O2 Saturation ABG Base Excess 9.0 H ABG Hemoglobin 6.5 L Oxyhemoglobin 94.7 L Sodium Potassium Chloride Carbon Dioxide BUN Creatinine 0.5 L Glucose 125 H POC Glucose Lactic Acid Calcium Ionized Calcium Phosphorus Magnesium Total Bilirubin AST ALT Alkaline Phosphatase Ammonia Total Creatine Kinase CK-MB (CK-2) CK-MB (CK-2) Rel Index Total Protein Albumin Urine WBC (Auto) Vancomycin Trough Salicylates Acetaminophen Plasma/Serum Alcohol Crossmatch 12/01/19 12/01/19 12/01/19 13:21 17:54 20:59 WBC RBC Hgb Hct MCH RDW Plt Count Lymph % (Auto) [place] % (Auto) [place] # Baso # Seg Neutrophils % Seg Neuts % (Manual) Lymphocytes % (Manual) Monocytes % (Manual) Seg Neutrophils # Seg Neutrophils # Man Lymphocytes # (Manual) Monocytes # (Manual) Eosinophils # (Manual) Basophils # (Manual) PT INR APTT ABG pH ABG pO2 78.3 L ABG HCO3 33.8 H ABG O2 Saturation 94.9 L ABG Base Excess 7.9 H ABG Hemoglobin 11.5 L Oxyhemoglobin 92.3 L Sodium Potassium Chloride Carbon Dioxide BUN Creatinine Glucose POC Glucose 111 H 115 H Lactic Acid Calcium Ionized Calcium Phosphorus Magnesium Total Bilirubin AST ALT Alkaline Phosphatase Ammonia Total Creatine Kinase CK-MB (CK-2) CK-MB (CK-2) Rel Index Total Protein Albumin Urine WBC (Auto) Vancomycin Trough Salicylates Acetaminophen Plasma/Serum Alcohol Crossmatch 12/02/19 12/03/19 12/04/19 12:55 20:00 04:26 WBC 15.2 H RBC 2.69 L Hgb 7.4 L Hct 23.6 L MCH 27 L RDW 19.9 H Plt Count 838 H Lymph % (Auto) [place] % (Auto) [place] # Baso # Seg Neutrophils % Seg Neuts % (Manual) Lymphocytes % (Manual) Monocytes % (Manual) Seg Neutrophils # Seg Neutrophils # Man Lymphocytes # (Manual) Monocytes # (Manual) Eosinophils # (Manual) Basophils # (Manual) PT INR APTT ABG pH ABG pO2 68.3 L ABG HCO3 33.5 H ABG O2 Saturation 93.5 L ABG Base Excess 8.4 H ABG Hemoglobin 7.3 L Oxyhemoglobin 90.9 L Sodium Potassium Chloride Carbon Dioxide BUN Creatinine Glucose POC Glucose 107 H Lactic Acid Calcium Ionized Calcium Phosphorus Magnesium Total Bilirubin AST ALT Alkaline Phosphatase Ammonia Total Creatine Kinase CK-MB (CK-2) CK-MB (CK-2) Rel Index Total Protein Albumin Urine WBC (Auto) Vancomycin Trough Salicylates Acetaminophen Plasma/Serum Alcohol Crossmatch 12/04/19 12/04/19 12/04/19 04:26 07:45 12:02 WBC 15.9 H RBC 2.88 L Hgb 7.9 L Hct 25.1 L MCH RDW 20.4 H Plt Count 839 H Lymph % (Auto) 11.3 L [place] % (Auto) 15.2 H [place] # 2.4 H Baso # Seg Neutrophils % 72.4 H Seg Neuts % (Manual) Lymphocytes % (Manual) Monocytes % (Manual) Seg Neutrophils # 11.5 H Seg Neutrophils # Man Lymphocytes # (Manual) Monocytes # (Manual) Eosinophils # (Manual) Basophils # (Manual) PT INR APTT ABG pH ABG pO2 ABG HCO3 ABG O2 Saturation ABG Base Excess ABG Hemoglobin Oxyhemoglobin Sodium Potassium Chloride 96.5 L Carbon Dioxide BUN 21 H Creatinine 0.6 L Glucose 107 H POC Glucose 138 H Lactic Acid Calcium Ionized Calcium Phosphorus Magnesium Total Bilirubin AST ALT Alkaline Phosphatase Ammonia Total Creatine Kinase CK-MB (CK-2) CK-MB (CK-2) Rel Index Total Protein Albumin Urine WBC (Auto) Vancomycin Trough Salicylates Acetaminophen Plasma/Serum Alcohol Crossmatch 12/04/19 12/05/19 12/05/19 18:16 11:55 18:36 WBC RBC Hgb Hct MCH RDW Plt Count Lymph % (Auto) [place] % (Auto) [place] # Baso # Seg Neutrophils % Seg Neuts % (Manual) Lymphocytes % (Manual) Monocytes % (Manual) Seg Neutrophils # Seg Neutrophils # Man Lymphocytes # (Manual) Monocytes # (Manual) Eosinophils # (Manual) Basophils # (Manual) PT INR APTT ABG pH ABG pO2 ABG HCO3 ABG O2 Saturation ABG Base Excess ABG Hemoglobin Oxyhemoglobin Sodium Potassium Chloride Carbon Dioxide BUN Creatinine Glucose POC Glucose 135 H 125 H 135 H Lactic Acid Calcium Ionized Calcium Phosphorus Magnesium Total Bilirubin AST ALT Alkaline Phosphatase Ammonia Total Creatine Kinase CK-MB (CK-2) CK-MB (CK-2) Rel Index Total Protein Albumin Urine WBC (Auto) Vancomycin Trough Salicylates Acetaminophen Plasma/Serum Alcohol Crossmatch 12/05/19 12/06/19 12/06/19 23:30 04:14 05:43 WBC RBC Hgb Hct MCH RDW Plt Count Lymph % (Auto) [place] [place] % (Auto) [place] # Baso # Seg Neutrophils % Seg Neuts % (Manual) Lymphocytes % (Manual) Monocytes % (Manual) Seg Neutrophils # Seg Neutrophils # Man Lymphocytes # (Manual) Monocytes # (Manual) Eosinophils # (Manual) Basophils # (Manual) PT INR APTT ABG pH ABG pO2 ABG HCO3 ABG O2 Saturation ABG Base Excess ABG Hemoglobin Oxyhemoglobin Sodium Potassium 5.6 H Chloride 95.0 L Carbon Dioxide BUN 48 H Creatinine 1.3 H D Glucose POC Glucose 126 H 121 H Lactic Acid Calcium Ionized Calcium Phosphorus Magnesium Total Bilirubin AST 89 H ALT 98 H Alkaline Phosphatase 476 H Ammonia Total Creatine Kinase CK-MB (CK-2) CK-MB (CK-2) Rel Index Total Protein Albumin 2.8 L Urine WBC (Auto) Vancomycin Trough Salicylates Acetaminophen Plasma/Serum Alcohol Crossmatch 12/06/19 12/06/19 12/07/19 10:39 14:34 00:19 WBC 17.3 H RBC 2.60 L Hgb 7.1 L Hct 22.7 L MCH 27 L RDW 20.1 H Plt Count 832 H Lymph % (Auto) [place] % (Auto) [place] # Baso # Seg Neutrophils % Seg Neuts % (Manual) Lymphocytes % (Manual) Monocytes % (Manual) Seg Neutrophils # Seg Neutrophils # Man Lymphocytes # (Manual) Monocytes # (Manual) Eosinophils # (Manual) Basophils # (Manual) PT INR APTT ABG pH ABG pO2 ABG HCO3 ABG O2 Saturation ABG Base Excess ABG Hemoglobin Oxyhemoglobin Sodium Potassium Chloride Carbon Dioxide BUN Creatinine Glucose POC Glucose 128 H 136 H Lactic Acid Calcium Ionized Calcium Phosphorus Magnesium Total Bilirubin AST ALT Alkaline Phosphatase Ammonia Total Creatine Kinase CK-MB (CK-2) CK-MB (CK-2) Rel Index Total Protein Albumin Urine WBC (Auto) Vancomycin Trough Salicylates Acetaminophen Plasma/Serum Alcohol Crossmatch 12/07/19 12/07/19 12/07/19 03:44 03:44 05:53 WBC 16.2 H RBC 2.56 L Hgb 7.1 L Hct 22.3 L MCH RDW 19.4 H Plt Count 782 H Lymph % (Auto) [place] % (Auto) [place] # Baso # Seg Neutrophils % Seg Neuts % (Manual) Lymphocytes % (Manual) Monocytes % (Manual) Seg Neutrophils # Seg Neutrophils # Man Lymphocytes # (Manual) Monocytes # (Manual) Eosinophils # (Manual) Basophils # (Manual) PT INR APTT ABG pH ABG pO2 ABG HCO3 ABG O2 Saturation ABG Base Excess ABG Hemoglobin Oxyhemoglobin Sodium Potassium Chloride 95.6 L Carbon Dioxide BUN 56 H Creatinine 1.4 H Glucose 120 H POC Glucose 128 H Lactic Acid Calcium 10.3 H Ionized Calcium Phosphorus Magnesium Total Bilirubin AST ALT Alkaline Phosphatase Ammonia Total Creatine Kinase CK-MB (CK-2) CK-MB (CK-2) Rel Index Total Protein Albumin Urine WBC (Auto) Vancomycin Trough Salicylates Acetaminophen Plasma/Serum Alcohol Crossmatch 12/07/19 12/07/19 12/08/19 12:54 23:47 00:20 WBC RBC Hgb Hct MCH RDW Plt Count Lymph % (Auto) [place] % (Auto) [place] # Baso # Seg Neutrophils % Seg Neuts % (Manual) Lymphocytes % (Manual) Monocytes % (Manual) Seg Neutrophils # Seg Neutrophils # Man Lymphocytes # (Manual) Monocytes # (Manual) Eosinophils # (Manual) Basophils # (Manual) PT INR APTT ABG pH ABG pO2 ABG HCO3 ABG O2 Saturation ABG Base Excess ABG Hemoglobin Oxyhemoglobin Sodium Potassium Chloride Carbon Dioxide BUN Creatinine Glucose POC Glucose 128 H 130 H 124 H Lactic Acid Calcium Ionized Calcium Phosphorus Magnesium Total Bilirubin AST ALT Alkaline Phosphatase Ammonia Total Creatine Kinase CK-MB (CK-2) CK-MB (CK-2) Rel Index Total Protein Albumin Urine WBC (Auto) Vancomycin Trough Salicylates Acetaminophen Plasma/Serum Alcohol Crossmatch 12/08/19 12/08/19 12/08/19 06:38 12:04 18:26 WBC RBC Hgb Hct MCH RDW Plt Count Lymph % (Auto) [place] % (Auto) [place] # Baso # Seg Neutrophils % Seg Neuts % (Manual) Lymphocytes % (Manual) Monocytes % (Manual) Seg Neutrophils # Seg Neutrophils # Man Lymphocytes # (Manual) Monocytes # (Manual) Eosinophils # (Manual) Basophils # (Manual) PT INR APTT ABG pH ABG pO2 ABG HCO3 ABG O2 Saturation ABG Base Excess ABG Hemoglobin Oxyhemoglobin Sodium Potassium Chloride Carbon Dioxide BUN Creatinine Glucose POC Glucose 137 H 129 H 150 H Lactic Acid Calcium Ionized Calcium Phosphorus Magnesium Total Bilirubin AST ALT Alkaline Phosphatase Ammonia Total Creatine Kinase CK-MB (CK-2) CK-MB (CK-2) Rel Index Total Protein Albumin Urine WBC (Auto) Vancomycin Trough Salicylates Acetaminophen Plasma/Serum Alcohol Crossmatch 12/09/19 12/09/19 12/09/19 00:56 05:34 06:13 WBC RBC Hgb Hct MCH RDW Plt Count Lymph % (Auto) [place] % (Auto) [place] # Baso # Seg Neutrophils % Seg Neuts % (Manual) Lymphocytes % (Manual) Monocytes % (Manual) Seg Neutrophils # Seg Neutrophils # Man Lymphocytes # (Manual) Monocytes # (Manual) Eosinophils # (Manual) Basophils # (Manual) PT INR APTT ABG pH ABG pO2 ABG HCO3 ABG O2 Saturation ABG Base Excess ABG Hemoglobin Oxyhemoglobin Sodium 146 H Potassium Chloride Carbon Dioxide BUN 66 H Creatinine 1.9 H Glucose 116 H POC Glucose 130 H 130 H Lactic Acid Calcium Ionized Calcium Phosphorus Magnesium Total Bilirubin AST ALT Alkaline Phosphatase Ammonia Total Creatine Kinase CK-MB (CK-2) CK-MB (CK-2) Rel Index Total Protein Albumin Urine WBC (Auto) Vancomycin Trough Salicylates Acetaminophen Plasma/Serum Alcohol Crossmatch 12/09/19 12/09/19 12/10/19 11:52 17:50 00:14 WBC RBC Hgb Hct MCH RDW Plt Count Lymph % (Auto) [place] % (Auto) [place] # Baso # Seg Neutrophils % Seg Neuts % (Manual) Lymphocytes % (Manual) Monocytes % (Manual) Seg Neutrophils # Seg Neutrophils # Man Lymphocytes # (Manual) Monocytes # (Manual) Eosinophils # (Manual) Basophils # (Manual) PT INR APTT ABG pH ABG pO2 ABG HCO3 ABG O2 Saturation ABG Base Excess ABG Hemoglobin Oxyhemoglobin Sodium Potassium Chloride Carbon Dioxide BUN Creatinine Glucose POC Glucose 135 H 120 H 116 H Lactic Acid Calcium Ionized Calcium Phosphorus Magnesium Total Bilirubin AST ALT Alkaline Phosphatase Ammonia Total Creatine Kinase CK-MB (CK-2) CK-MB (CK-2) Rel Index Total Protein Albumin Urine WBC (Auto) Vancomycin Trough Salicylates Acetaminophen Plasma/Serum Alcohol Crossmatch 12/10/19 12/10/19 12/10/19 05:38 11:38 17:34 WBC RBC Hgb Hct MCH RDW Plt Count Lymph % (Auto) [place] % (Auto) [place] # Baso # Seg Neutrophils % Seg Neuts % (Manual) Lymphocytes % (Manual) Monocytes % (Manual) Seg Neutrophils # Seg Neutrophils # Man Lymphocytes # (Manual) Monocytes # (Manual) Eosinophils # (Manual) Basophils # (Manual) PT INR APTT ABG pH ABG pO2 ABG HCO3 ABG O2 Saturation ABG Base Excess ABG Hemoglobin Oxyhemoglobin Sodium Potassium Chloride Carbon Dioxide BUN Creatinine Glucose POC Glucose 115 H 112 H 130 H Lactic Acid Calcium Ionized Calcium Phosphorus Magnesium Total Bilirubin AST ALT Alkaline Phosphatase Ammonia Total Creatine Kinase CK-MB (CK-2) CK-MB (CK-2) Rel Index Total Protein Albumin Urine WBC (Auto) Vancomycin Trough Salicylates Acetaminophen Plasma/Serum Alcohol Crossmatch 12/11/19 12/11/19 12/11/19 00:20 05:31 12:22 WBC RBC Hgb Hct MCH RDW Plt Count Lymph % (Auto) [place] % (Auto) [place] # Baso # Seg Neutrophils % Seg Neuts % (Manual) Lymphocytes % (Manual) Monocytes % (Manual) Seg Neutrophils # Seg Neutrophils # Man Lymphocytes # (Manual) Monocytes # (Manual) Eosinophils # (Manual) Basophils # (Manual) PT INR APTT ABG pH ABG pO2 ABG HCO3 ABG O2 Saturation ABG Base Excess ABG Hemoglobin Oxyhemoglobin Sodium Potassium Chloride Carbon Dioxide BUN Creatinine Glucose POC Glucose 124 H 132 H 128 H Lactic Acid Calcium Ionized Calcium Phosphorus Magnesium Total Bilirubin AST ALT Alkaline Phosphatase Ammonia Total Creatine Kinase CK-MB (CK-2) CK-MB (CK-2) Rel Index Total Protein Albumin Urine WBC (Auto) Vancomycin Trough Salicylates Acetaminophen Plasma/Serum Alcohol Crossmatch 12/11/19 12/11/19 12/12/19 18:04 23:42 03:51 WBC RBC Hgb Hct MCH RDW Plt Count Lymph % (Auto) [place] % (Auto) [place] # Baso # Seg Neutrophils % Seg Neuts % (Manual) Lymphocytes % (Manual) Monocytes % (Manual) Seg Neutrophils # Seg Neutrophils # Man Lymphocytes # (Manual) Monocytes # (Manual) Eosinophils # (Manual) Basophils # (Manual) PT INR APTT ABG pH ABG pO2 ABG HCO3 ABG O2 Saturation ABG Base Excess ABG Hemoglobin Oxyhemoglobin Sodium 149 H Potassium Chloride Carbon Dioxide 20 L D BUN 77 H Creatinine 2.8 H Glucose POC Glucose 133 H 154 H Lactic Acid Calcium Ionized Calcium Phosphorus Magnesium Total Bilirubin AST ALT Alkaline Phosphatase Ammonia Total Creatine Kinase CK-MB (CK-2) CK-MB (CK-2) Rel Index Total Protein Albumin Urine WBC (Auto) Vancomycin Trough Salicylates Acetaminophen Plasma/Serum Alcohol Crossmatch 12/12/19 12/12/19 12/12/19 05:18 05:26 10:30 WBC 18.0 H RBC 2.51 L Hgb 6.8 L Hct 22.0 L MCH 27 L RDW 19.9 H Plt Count 582 H Lymph % (Auto) [place] % (Auto) [place] # Baso # Seg Neutrophils % Seg Neuts % (Manual) Lymphocytes % (Manual) Monocytes % (Manual) Seg Neutrophils # Seg Neutrophils # Man Lymphocytes # (Manual) Monocytes # (Manual) Eosinophils # (Manual) Basophils # (Manual) PT INR APTT ABG pH ABG pO2 ABG HCO3 ABG O2 Saturation ABG Base Excess ABG Hemoglobin Oxyhemoglobin Sodium Potassium Chloride Carbon Dioxide BUN Creatinine Glucose POC Glucose 135 H Lactic Acid Calcium Ionized Calcium Phosphorus Magnesium Total Bilirubin AST ALT Alkaline Phosphatase Ammonia Total Creatine Kinase CK-MB (CK-2) CK-MB (CK-2) Rel Index Total Protein Albumin Urine WBC (Auto) Vancomycin Trough Salicylates Acetaminophen Plasma/Serum Alcohol Crossmatch See Detail 12/12/19 12/12/19 12/12/19 11:44 18:10 23:21 WBC RBC Hgb Hct MCH RDW Plt Count Lymph % (Auto) [place] % (Auto) [place] # Baso # Seg Neutrophils % Seg Neuts % (Manual) Lymphocytes % (Manual) Monocytes % (Manual) Seg Neutrophils # Seg Neutrophils # Man Lymphocytes # (Manual) Monocytes # (Manual) Eosinophils # (Manual) Basophils # (Manual) PT INR APTT ABG pH ABG pO2 ABG HCO3 ABG O2 Saturation ABG Base Excess ABG Hemoglobin Oxyhemoglobin Sodium Potassium Chloride Carbon Dioxide BUN Creatinine Glucose POC Glucose 108 H 107 H 126 H Lactic Acid Calcium Ionized Calcium Phosphorus Magnesium Total Bilirubin AST ALT Alkaline Phosphatase Ammonia Total Creatine Kinase CK-MB (CK-2) CK-MB (CK-2) Rel Index Total Protein Albumin Urine WBC (Auto) Vancomycin Trough Salicylates Acetaminophen Plasma/Serum Alcohol Crossmatch 12/13/19 12/13/19 12/13/19 05:41 07:48 07:48 WBC 38.3 H RBC 2.37 L Hgb 6.3 L Hct 20.9 L MCH 27 L RDW 20.2 H Plt Count 546 H Lymph % (Auto) [place] % (Auto) [place] # Baso # Seg Neutrophils % Seg Neuts % (Manual) 93.0 H Lymphocytes % (Manual) 1.0 L Monocytes % (Manual) Seg Neutrophils # Seg Neutrophils # Man 35.6 H Lymphocytes # (Manual) 0.4 L Monocytes # (Manual) Eosinophils # (Manual) Basophils # (Manual) 0.4 H PT INR APTT ABG pH ABG pO2 ABG HCO3 ABG O2 Saturation ABG Base Excess ABG Hemoglobin Oxyhemoglobin Sodium 152 H Potassium 3.1 L D Chloride 111.9 H Carbon Dioxide 21 L BUN 53 H Creatinine 1.9 H Glucose 141 H POC Glucose 128 H Lactic Acid Calcium Ionized Calcium Phosphorus Magnesium Total Bilirubin AST ALT Alkaline Phosphatase 316 H Ammonia Total Creatine Kinase CK-MB (CK-2) CK-MB (CK-2) Rel Index Total Protein Albumin 2.4 L Urine WBC (Auto) Vancomycin Trough Salicylates Acetaminophen Plasma/Serum Alcohol Crossmatch 12/13/19 12/13/19 12/14/19 18:17 23:19 05:36 WBC RBC Hgb Hct MCH RDW Plt Count Lymph % (Auto) [place] % (Auto) [place] # Baso # Seg Neutrophils % Seg Neuts % (Manual) Lymphocytes % (Manual) Monocytes % (Manual) Seg Neutrophils # Seg Neutrophils # Man Lymphocytes # (Manual) Monocytes # (Manual) Eosinophils # (Manual) Basophils # (Manual) PT INR APTT ABG pH ABG pO2 ABG HCO3 ABG O2 Saturation ABG Base Excess ABG Hemoglobin Oxyhemoglobin Sodium Potassium Chloride Carbon Dioxide BUN Creatinine Glucose POC Glucose 141 H 158 H 182 H Lactic Acid Calcium Ionized Calcium Phosphorus Magnesium Total Bilirubin AST ALT Alkaline Phosphatase Ammonia Total Creatine Kinase CK-MB (CK-2) CK-MB (CK-2) Rel Index Total Protein Albumin Urine WBC (Auto) Vancomycin Trough Salicylates Acetaminophen Plasma/Serum Alcohol Crossmatch 12/14/19 12/14/19 12/14/19 08:48 08:48 10:31 WBC 33.3 H RBC 2.70 L Hgb 7.9 L 8.0 L Hct 25.3 L 24.0 L MCH RDW 19.2 H Plt Count 476 H Lymph % (Auto) [place] % (Auto) [place] # Baso # Seg Neutrophils % Seg Neuts % (Manual) Lymphocytes % (Manual) Monocytes % (Manual) Seg Neutrophils # Seg Neutrophils # Man Lymphocytes # (Manual) Monocytes # (Manual) Eosinophils # (Manual) Basophils # (Manual) PT INR APTT ABG pH ABG pO2 ABG HCO3 ABG O2 Saturation ABG Base Excess ABG Hemoglobin Oxyhemoglobin Sodium 153 H Potassium 2.5 L* Chloride 114.9 H Carbon Dioxide 20 L BUN 38 H Creatinine 1.4 H Glucose 177 H POC Glucose Lactic Acid Calcium Ionized Calcium Phosphorus Magnesium Total Bilirubin AST ALT Alkaline Phosphatase Ammonia Total Creatine Kinase CK-MB (CK-2) CK-MB (CK-2) Rel Index Total Protein Albumin Urine WBC (Auto) Vancomycin Trough Salicylates Acetaminophen Plasma/Serum Alcohol Crossmatch 12/14/19 12/14/19 12/14/19 12:57 16:15 17:50 WBC RBC Hgb Hct MCH RDW Plt Count Lymph % (Auto) [place] % (Auto) [place] # Baso # Seg Neutrophils % Seg Neuts % (Manual) Lymphocytes % (Manual) Monocytes % (Manual) Seg Neutrophils # Seg Neutrophils # Man Lymphocytes # (Manual) Monocytes # (Manual) Eosinophils # (Manual) Basophils # (Manual) PT INR APTT ABG pH ABG pO2 73.6 L ABG HCO3 ABG O2 Saturation ABG Base Excess ABG Hemoglobin 7.6 L Oxyhemoglobin 94.0 L Sodium Potassium Chloride Carbon Dioxide BUN Creatinine Glucose POC Glucose 174 H 150 H Lactic Acid Calcium Ionized Calcium Phosphorus Magnesium Total Bilirubin AST ALT Alkaline Phosphatase Ammonia Total Creatine Kinase CK-MB (CK-2) CK-MB (CK-2) Rel Index Total Protein Albumin Urine WBC (Auto) Vancomycin Trough Salicylates Acetaminophen Plasma/Serum Alcohol Crossmatch 12/15/19 12/15/19 12/15/19 00:28 05:27 07:23 WBC 30.0 H RBC 3.11 L Hgb 8.6 L Hct 27.7 L MCH RDW 20.0 H Plt Count 473 H Lymph % (Auto) [place] % (Auto) [place] # Baso # Seg Neutrophils % Seg Neuts % (Manual) Lymphocytes % (Manual) Monocytes % (Manual) Seg Neutrophils # Seg Neutrophils # Man Lymphocytes # (Manual) Monocytes # (Manual) Eosinophils # (Manual) Basophils # (Manual) PT INR APTT ABG pH ABG pO2 ABG HCO3 ABG O2 Saturation ABG Base Excess ABG Hemoglobin Oxyhemoglobin Sodium Potassium Chloride Carbon Dioxide BUN Creatinine Glucose POC Glucose 167 H 148 H Lactic Acid Calcium Ionized Calcium Phosphorus Magnesium Total Bilirubin AST ALT Alkaline Phosphatase Ammonia Total Creatine Kinase CK-MB (CK-2) CK-MB (CK-2) Rel Index Total Protein Albumin Urine WBC (Auto) Vancomycin Trough Salicylates Acetaminophen Plasma/Serum Alcohol Crossmatch 12/15/19 12/15/19 12/15/19 07:23 12:21 17:41 WBC RBC Hgb Hct MCH RDW Plt Count Lymph % (Auto) [place] % (Auto) [place] # Baso # Seg Neutrophils % Seg Neuts % (Manual) Lymphocytes % (Manual) Monocytes % (Manual) Seg Neutrophils # Seg Neutrophils # Man Lymphocytes # (Manual) Monocytes # (Manual) Eosinophils # (Manual) Basophils # (Manual) PT INR APTT ABG pH ABG pO2 ABG HCO3 ABG O2 Saturation ABG Base Excess ABG Hemoglobin Oxyhemoglobin Sodium 147 H Potassium 3.5 L D Chloride 111.2 H Carbon Dioxide 19 L BUN 29 H Creatinine Glucose 126 H POC Glucose 154 H 144 H Lactic Acid Calcium Ionized Calcium Phosphorus Magnesium Total Bilirubin AST ALT Alkaline Phosphatase Ammonia Total Creatine Kinase CK-MB (CK-2) CK-MB (CK-2) Rel Index Total Protein Albumin Urine WBC (Auto) Vancomycin Trough Salicylates Acetaminophen Plasma/Serum Alcohol Crossmatch 12/16/19 12/16/19 12/16/19 00:22 05:30 05:44 WBC 30.8 H RBC 2.58 L Hgb 7.1 L Hct 22.7 L MCH RDW 19.6 H Plt Count 451 H Lymph % (Auto) [place] % (Auto) [place] # Baso # Seg Neutrophils % Seg Neuts % (Manual) Lymphocytes % (Manual) Monocytes % (Manual) Seg Neutrophils # Seg Neutrophils # Man Lymphocytes # (Manual) Monocytes # (Manual) Eosinophils # (Manual) Basophils # (Manual) PT INR APTT ABG pH ABG pO2 ABG HCO3 ABG O2 Saturation ABG Base Excess ABG Hemoglobin Oxyhemoglobin Sodium Potassium Chloride Carbon Dioxide BUN Creatinine Glucose POC Glucose 139 H 126 H Lactic Acid Calcium Ionized Calcium Phosphorus Magnesium Total Bilirubin AST ALT Alkaline Phosphatase Ammonia Total Creatine Kinase CK-MB (CK-2) CK-MB (CK-2) Rel Index Total Protein Albumin Urine WBC (Auto) Vancomycin Trough Salicylates Acetaminophen Plasma/Serum Alcohol Crossmatch 12/16/19 12/16/19 12/16/19 05:44 11:48 17:37 WBC RBC Hgb Hct MCH RDW Plt Count Lymph % (Auto) [place] % (Auto) [place] # Baso # Seg Neutrophils % Seg Neuts % (Manual) Lymphocytes % (Manual) Monocytes % (Manual) Seg Neutrophils # Seg Neutrophils # Man Lymphocytes # (Manual) Monocytes # (Manual) Eosinophils # (Manual) Basophils # (Manual) PT INR APTT ABG pH ABG pO2 ABG HCO3 ABG O2 Saturation ABG Base Excess ABG Hemoglobin Oxyhemoglobin Sodium Potassium 3.4 L Chloride 109.2 H Carbon Dioxide 19 L BUN 27 H Creatinine Glucose 124 H POC Glucose 125 H 148 H Lactic Acid Calcium Ionized Calcium Phosphorus Magnesium Total Bilirubin AST ALT Alkaline Phosphatase Ammonia Total Creatine Kinase CK-MB (CK-2) CK-MB (CK-2) Rel Index Total Protein Albumin Urine WBC (Auto) Vancomycin Trough Salicylates Acetaminophen Plasma/Serum Alcohol Crossmatch 12/16/19 12/17/19 12/17/19 23:43 05:28 12:47 WBC RBC Hgb Hct MCH RDW Plt Count Lymph % (Auto) [place] % (Auto) [place] # Baso # Seg Neutrophils % Seg Neuts % (Manual) Lymphocytes % (Manual) Monocytes % (Manual) Seg Neutrophils # Seg Neutrophils # Man Lymphocytes # (Manual) Monocytes # (Manual) Eosinophils # (Manual) Basophils # (Manual) PT INR APTT ABG pH ABG pO2 ABG HCO3 ABG O2 Saturation ABG Base Excess ABG Hemoglobin Oxyhemoglobin Sodium Potassium Chloride Carbon Dioxide BUN Creatinine Glucose POC Glucose 142 H 140 H 125 H Lactic Acid Calcium Ionized Calcium Phosphorus Magnesium Total Bilirubin AST ALT Alkaline Phosphatase Ammonia Total Creatine Kinase CK-MB (CK-2) CK-MB (CK-2) Rel Index Total Protein Albumin Urine WBC (Auto) Vancomycin Trough Salicylates Acetaminophen Plasma/Serum Alcohol Crossmatch 12/17/19 12/17/19 12/17/19 17:05 18:00 Unknown WBC RBC Hgb Hct MCH RDW Plt Count Lymph % (Auto) [place] % (Auto) [place] # Baso # Seg Neutrophils % Seg Neuts % (Manual) Lymphocytes % (Manual) Monocytes % (Manual) Seg Neutrophils # Seg Neutrophils # Man Lymphocytes # (Manual) Monocytes # (Manual) Eosinophils # (Manual) Basophils # (Manual) PT INR APTT ABG pH ABG pO2 68.1 L ABG HCO3 ABG O2 Saturation 93.7 L ABG Base Excess ABG Hemoglobin 5.0 L Oxyhemoglobin 91.7 L Sodium Potassium Chloride Carbon Dioxide BUN Creatinine Glucose POC Glucose 140 H Lactic Acid Calcium Ionized Calcium Phosphorus Magnesium Total Bilirubin AST ALT Alkaline Phosphatase Ammonia Total Creatine Kinase CK-MB (CK-2) CK-MB (CK-2) Rel Index Total Protein Albumin Urine WBC (Auto) Vancomycin Trough Salicylates Acetaminophen Plasma/Serum Alcohol Crossmatch 12/18/19 12/18/19 12/18/19 00:16 04:53 04:53 WBC 28.6 H RBC 2.27 L Hgb 6.3 L Hct 19.5 L* MCH RDW 20.0 H Plt Count 497 H Lymph % (Auto) [place] % (Auto) [place] # Baso # Seg Neutrophils % Seg Neuts % (Manual) Lymphocytes % (Manual) Monocytes % (Manual) Seg Neutrophils # Seg Neutrophils # Man Lymphocytes # (Manual) Monocytes # (Manual) Eosinophils # (Manual) Basophils # (Manual) PT INR APTT ABG pH ABG pO2 ABG HCO3 ABG O2 Saturation ABG Base Excess ABG Hemoglobin Oxyhemoglobin Sodium Potassium Chloride 107.9 H Carbon Dioxide 20 L BUN 27 H Creatinine 0.6 L Glucose 116 H POC Glucose 123 H Lactic Acid Calcium Ionized Calcium Phosphorus Magnesium Total Bilirubin AST ALT Alkaline Phosphatase Ammonia Total Creatine Kinase CK-MB (CK-2) CK-MB (CK-2) Rel Index Total Protein Albumin Urine WBC (Auto) Vancomycin Trough Salicylates Acetaminophen Plasma/Serum Alcohol Crossmatch 12/18/19 12/18/19 12/18/19 06:38 11:22 12:08 WBC RBC Hgb Hct MCH RDW Plt Count Lymph % (Auto) [place] % (Auto) [place] # Baso # Seg Neutrophils % Seg Neuts % (Manual) Lymphocytes % (Manual) Monocytes % (Manual) Seg Neutrophils # Seg Neutrophils # Man Lymphocytes # (Manual) Monocytes # (Manual) Eosinophils # (Manual) Basophils # (Manual) PT INR APTT ABG pH ABG pO2 ABG HCO3 ABG O2 Saturation ABG Base Excess ABG Hemoglobin Oxyhemoglobin Sodium Potassium Chloride Carbon Dioxide BUN Creatinine Glucose POC Glucose 120 H 127 H Lactic Acid Calcium Ionized Calcium Phosphorus Magnesium Total Bilirubin AST ALT Alkaline Phosphatase Ammonia Total Creatine Kinase CK-MB (CK-2) CK-MB (CK-2) Rel Index Total Protein Albumin Urine WBC (Auto) Vancomycin Trough Salicylates Acetaminophen Plasma/Serum Alcohol Crossmatch See Detail 12/18/19 12/18/19 12/18/19 14:05 17:49 23:53 WBC RBC Hgb Hct MCH RDW Plt Count Lymph % (Auto) [place] % (Auto) [place] # Baso # Seg Neutrophils % Seg Neuts % (Manual) Lymphocytes % (Manual) Monocytes % (Manual) Seg Neutrophils # Seg Neutrophils # Man Lymphocytes # (Manual) Monocytes # (Manual) Eosinophils # (Manual) Basophils # (Manual) PT INR APTT ABG pH 7.267 L ABG pO2 69.8 L ABG HCO3 ABG O2 Saturation 88.4 L ABG Base Excess ABG Hemoglobin 7.1 L Oxyhemoglobin 86.4 L Sodium Potassium Chloride Carbon Dioxide BUN Creatinine Glucose POC Glucose 157 H 128 H Lactic Acid Calcium Ionized Calcium Phosphorus Magnesium Total Bilirubin AST ALT Alkaline Phosphatase Ammonia Total Creatine Kinase CK-MB (CK-2) CK-MB (CK-2) Rel Index Total Protein Albumin Urine WBC (Auto) Vancomycin Trough Salicylates Acetaminophen Plasma/Serum Alcohol Crossmatch 12/19/19 12/19/19 12/19/19 03:37 03:37 05:25 WBC 31.3 H RBC 2.60 L Hgb 7.6 L Hct 23.0 L MCH RDW 19.4 H Plt Count 530 H Lymph % (Auto) [place] % (Auto) [place] # Baso # Seg Neutrophils % Seg Neuts % (Manual) Lymphocytes % (Manual) Monocytes % (Manual) Seg Neutrophils # Seg Neutrophils # Man Lymphocytes # (Manual) Monocytes # (Manual) Eosinophils # (Manual) Basophils # (Manual) PT INR APTT ABG pH ABG pO2 ABG HCO3 ABG O2 Saturation ABG Base Excess ABG Hemoglobin Oxyhemoglobin Sodium Potassium Chloride Carbon Dioxide 18 L BUN 36 H Creatinine Glucose 111 H POC Glucose 123 H Lactic Acid Calcium Ionized Calcium Phosphorus Magnesium Total Bilirubin AST ALT Alkaline Phosphatase Ammonia Total Creatine Kinase CK-MB (CK-2) CK-MB (CK-2) Rel Index Total Protein Albumin Urine WBC (Auto) Vancomycin Trough Salicylates Acetaminophen Plasma/Serum Alcohol Crossmatch 12/19/19 12/19/19 12/20/19 12:59 18:33 00:00 WBC RBC Hgb Hct MCH RDW Plt Count Lymph % (Auto) [place] % (Auto) [place] # Baso # Seg Neutrophils % Seg Neuts % (Manual) Lymphocytes % (Manual) Monocytes % (Manual) Seg Neutrophils # Seg Neutrophils # Man Lymphocytes # (Manual) Monocytes # (Manual) Eosinophils # (Manual) Basophils # (Manual) PT INR APTT ABG pH ABG pO2 ABG HCO3 ABG O2 Saturation ABG Base Excess ABG Hemoglobin Oxyhemoglobin Sodium Potassium Chloride Carbon Dioxide BUN Creatinine Glucose POC Glucose 130 H 118 H 135 H Lactic Acid Calcium Ionized Calcium Phosphorus Magnesium Total Bilirubin AST ALT Alkaline Phosphatase Ammonia Total Creatine Kinase CK-MB (CK-2) CK-MB (CK-2) Rel Index Total Protein Albumin Urine WBC (Auto) Vancomycin Trough Salicylates Acetaminophen Plasma/Serum Alcohol Crossmatch 12/20/19 12/20/19 12/20/19 05:46 12:31 18:07 WBC RBC Hgb Hct MCH RDW Plt Count Lymph % (Auto) [place] % (Auto) [place] # Baso # Seg Neutrophils % Seg Neuts % (Manual) Lymphocytes % (Manual) Monocytes % (Manual) Seg Neutrophils # Seg Neutrophils # Man Lymphocytes # (Manual) Monocytes # (Manual) Eosinophils # (Manual) Basophils # (Manual) PT INR APTT ABG pH ABG pO2 ABG HCO3 ABG O2 Saturation ABG Base Excess ABG Hemoglobin Oxyhemoglobin Sodium Potassium Chloride Carbon Dioxide BUN Creatinine Glucose POC Glucose 131 H 128 H 134 H Lactic Acid Calcium Ionized Calcium Phosphorus Magnesium Total Bilirubin AST ALT Alkaline Phosphatase Ammonia Total Creatine Kinase CK-MB (CK-2) CK-MB (CK-2) Rel Index Total Protein Albumin Urine WBC (Auto) Vancomycin Trough Salicylates Acetaminophen Plasma/Serum Alcohol Crossmatch 12/21/19 12/21/19 12/21/19 03:28 03:28 07:21 WBC 29.4 H RBC 2.30 L Hgb 6.8 L Hct 20.2 L MCH RDW 20.2 H Plt Count 746 H Lymph % (Auto) [place] % (Auto) [place] # Baso # Seg Neutrophils % Seg Neuts % (Manual) 85.0 H Lymphocytes % (Manual) 8.0 L Monocytes % (Manual) Seg Neutrophils # Seg Neutrophils # Man 25.0 H Lymphocytes # (Manual) Monocytes # (Manual) 1.5 H Eosinophils # (Manual) 0.6 H Basophils # (Manual) PT INR APTT ABG pH ABG pO2 ABG HCO3 ABG O2 Saturation ABG Base Excess ABG Hemoglobin Oxyhemoglobin Sodium Potassium Chloride Carbon Dioxide 17 L BUN 57 H Creatinine 1.4 H D Glucose POC Glucose 124 H Lactic Acid Calcium Ionized Calcium Phosphorus Magnesium Total Bilirubin AST ALT Alkaline Phosphatase Ammonia Total Creatine Kinase CK-MB (CK-2) CK-MB (CK-2) Rel Index Total Protein Albumin Urine WBC (Auto) Vancomycin Trough Salicylates Acetaminophen Plasma/Serum Alcohol Crossmatch 12/21/19 12/21/19 12/21/19 08:56 12:06 14:53 WBC RBC Hgb 7.2 L Hct 22.9 L MCH RDW Plt Count Lymph % (Auto) [place] % (Auto) [place] # Baso # Seg Neutrophils % Seg Neuts % (Manual) Lymphocytes % (Manual) Monocytes % (Manual) Seg Neutrophils # Seg Neutrophils # Man Lymphocytes # (Manual) Monocytes # (Manual) Eosinophils # (Manual) Basophils # (Manual) PT INR APTT ABG pH ABG pO2 ABG HCO3 ABG O2 Saturation ABG Base Excess ABG Hemoglobin Oxyhemoglobin Sodium Potassium Chloride Carbon Dioxide BUN Creatinine Glucose POC Glucose 116 H Lactic Acid Calcium Ionized Calcium Phosphorus Magnesium Total Bilirubin AST ALT Alkaline Phosphatase Ammonia Total Creatine Kinase CK-MB (CK-2) CK-MB (CK-2) Rel Index Total Protein Albumin Urine WBC (Auto) Vancomycin Trough 33.8 H Salicylates Acetaminophen Plasma/Serum Alcohol Crossmatch 12/21/19 12/21/19 12/21/19 14:54 17:27 23:49 WBC RBC Hgb Hct MCH RDW Plt Count Lymph % (Auto) [place] % (Auto) [place] # Baso # Seg Neutrophils % Seg Neuts % (Manual) Lymphocytes % (Manual) Monocytes % (Manual) Seg Neutrophils # Seg Neutrophils # Man Lymphocytes # (Manual) Monocytes # (Manual) Eosinophils # (Manual) Basophils # (Manual) PT INR APTT ABG pH ABG pO2 ABG HCO3 ABG O2 Saturation ABG Base Excess ABG Hemoglobin Oxyhemoglobin Sodium Potassium Chloride Carbon Dioxide BUN Creatinine Glucose POC Glucose 145 H 127 H Lactic Acid Calcium Ionized Calcium Phosphorus Magnesium Total Bilirubin AST ALT Alkaline Phosphatase Ammonia Total Creatine Kinase CK-MB (CK-2) CK-MB (CK-2) Rel Index Total Protein Albumin Urine WBC (Auto) Vancomycin Trough Salicylates Acetaminophen Plasma/Serum Alcohol Crossmatch See Detail 12/22/19 12/22/19 12/22/19 04:43 05:56 08:40 WBC RBC Hgb Hct MCH RDW Plt Count Lymph % (Auto) [place] % (Auto) [place] # Baso # Seg Neutrophils % Seg Neuts % (Manual) Lymphocytes % (Manual) Monocytes % (Manual) Seg Neutrophils # Seg Neutrophils # Man Lymphocytes # (Manual) Monocytes # (Manual) Eosinophils # (Manual) Basophils # (Manual) PT INR APTT ABG pH ABG pO2 75.6 L ABG HCO3 ABG O2 Saturation ABG Base Excess -2.6 L ABG Hemoglobin 6.8 L Oxyhemoglobin 94.6 L Sodium Potassium Chloride Carbon Dioxide 17 L BUN 60 H Creatinine 1.4 H Glucose 126 H POC Glucose 153 H Lactic Acid Calcium Ionized Calcium Phosphorus Magnesium Total Bilirubin AST ALT Alkaline Phosphatase Ammonia Total Creatine Kinase CK-MB (CK-2) CK-MB (CK-2) Rel Index Total Protein Albumin Urine WBC (Auto) Vancomycin Trough Salicylates Acetaminophen Plasma/Serum Alcohol Crossmatch 12/22/19 12/22/19 12/23/19 12:07 17:49 04:30 WBC 22.4 H RBC 2.68 L Hgb 7.6 L Hct 22.9 L MCH RDW 19.9 H Plt Count 998 H Lymph % (Auto) [place] % (Auto) [place] # Baso # Seg Neutrophils % Seg Neuts % (Manual) 88.0 H Lymphocytes % (Manual) 2.0 L Monocytes % (Manual) 9.0 H Seg Neutrophils # Seg Neutrophils # Man 19.7 H Lymphocytes # (Manual) 0.4 L Monocytes # (Manual) 2.0 H Eosinophils # (Manual) Basophils # (Manual) PT INR APTT ABG pH ABG pO2 ABG HCO3 ABG O2 Saturation ABG Base Excess ABG Hemoglobin Oxyhemoglobin Sodium Potassium Chloride Carbon Dioxide BUN Creatinine Glucose POC Glucose 140 H 116 H Lactic Acid Calcium Ionized Calcium Phosphorus Magnesium Total Bilirubin AST ALT Alkaline Phosphatase Ammonia Total Creatine Kinase CK-MB (CK-2) CK-MB (CK-2) Rel Index Total Protein Albumin Urine WBC (Auto) Vancomycin Trough Salicylates Acetaminophen Plasma/Serum Alcohol Crossmatch 12/23/19 12/23/19 12/23/19 04:30 12:00 18:06 WBC RBC Hgb Hct MCH RDW Plt Count Lymph % (Auto) [place] % (Auto) [place] # Baso # Seg Neutrophils % Seg Neuts % (Manual) Lymphocytes % (Manual) Monocytes % (Manual) Seg Neutrophils # Seg Neutrophils # Man Lymphocytes # (Manual) Monocytes # (Manual) Eosinophils # (Manual) Basophils # (Manual) PT INR APTT ABG pH ABG pO2 ABG HCO3 ABG O2 Saturation ABG Base Excess ABG Hemoglobin Oxyhemoglobin Sodium Potassium 5.2 H Chloride Carbon Dioxide 21 L BUN 69 H Creatinine 1.5 H Glucose 117 H POC Glucose 128 H 138 H Lactic Acid Calcium Ionized Calcium Phosphorus Magnesium Total Bilirubin AST ALT Alkaline Phosphatase Ammonia Total Creatine Kinase CK-MB (CK-2) CK-MB (CK-2) Rel Index Total Protein Albumin Urine WBC (Auto) Vancomycin Trough Salicylates Acetaminophen Plasma/Serum Alcohol Crossmatch 12/23/19 12/24/19 12/24/19 23:46 04:31 05:08 WBC RBC Hgb Hct MCH RDW Plt Count Lymph % (Auto) [place] % (Auto) [place] # Baso # Seg Neutrophils % Seg Neuts % (Manual) Lymphocytes % (Manual) Monocytes % (Manual) Seg Neutrophils # Seg Neutrophils # Man Lymphocytes # (Manual) Monocytes # (Manual) Eosinophils # (Manual) Basophils # (Manual) PT INR APTT ABG pH ABG pO2 ABG HCO3 ABG O2 Saturation ABG Base Excess ABG Hemoglobin Oxyhemoglobin Sodium Potassium 5.3 H Chloride 107.6 H Carbon Dioxide 20 L BUN 72 H Creatinine 1.6 H Glucose 120 H POC Glucose 120 H 140 H Lactic Acid Calcium Ionized Calcium Phosphorus Magnesium Total Bilirubin AST ALT Alkaline Phosphatase Ammonia Total Creatine Kinase CK-MB (CK-2) CK-MB (CK-2) Rel Index Total Protein Albumin Urine WBC (Auto) Vancomycin Trough Salicylates Acetaminophen Plasma/Serum Alcohol Crossmatch 12/24/19 12/24/19 12/25/19 11:58 17:49 03:47 WBC 36.2 H RBC 2.92 L Hgb 8.4 L Hct 26.1 L MCH RDW 20.2 H Plt Count 942 H Lymph % (Auto) [place] % (Auto) [place] # Baso # Seg Neutrophils % Seg Neuts % (Manual) 97.5 H Lymphocytes % (Manual) 1.0 L Monocytes % (Manual) Seg Neutrophils # Seg Neutrophils # Man 35.3 H Lymphocytes # (Manual) 0.4 L Monocytes # (Manual) Eosinophils # (Manual) Basophils # (Manual) PT INR APTT ABG pH ABG pO2 ABG HCO3 ABG O2 Saturation ABG Base Excess ABG Hemoglobin Oxyhemoglobin Sodium Potassium Chloride Carbon Dioxide BUN Creatinine Glucose POC Glucose 146 H 131 H Lactic Acid Calcium Ionized Calcium Phosphorus Magnesium Total Bilirubin AST ALT Alkaline Phosphatase Ammonia Total Creatine Kinase CK-MB (CK-2) CK-MB (CK-2) Rel Index Total Protein Albumin Urine WBC (Auto) Vancomycin Trough Salicylates Acetaminophen Plasma/Serum Alcohol Crossmatch 12/25/19 12/25/19 12/25/19 03:47 05:30 12:23 WBC RBC Hgb Hct MCH RDW Plt Count Lymph % (Auto) [place] % (Auto) [place] # Baso # Seg Neutrophils % Seg Neuts % (Manual) Lymphocytes % (Manual) Monocytes % (Manual) Seg Neutrophils # Seg Neutrophils # Man Lymphocytes # (Manual) Monocytes # (Manual) Eosinophils # (Manual) Basophils # (Manual) PT INR APTT ABG pH ABG pO2 ABG HCO3 ABG O2 Saturation ABG Base Excess ABG Hemoglobin Oxyhemoglobin Sodium Potassium Chloride Carbon Dioxide 15 L BUN 70 H Creatinine 1.7 H Glucose 153 H POC Glucose 169 H 135 H Lactic Acid Calcium Ionized Calcium Phosphorus Magnesium Total Bilirubin AST ALT Alkaline Phosphatase Ammonia Total Creatine Kinase CK-MB (CK-2) CK-MB (CK-2) Rel Index Total Protein Albumin Urine WBC (Auto) Vancomycin Trough Salicylates Acetaminophen Plasma/Serum Alcohol Crossmatch 12/25/19 12/25/19 12/26/19 17:37 23:29 09:47 WBC 22.1 H RBC 2.83 L Hgb 7.9 L Hct 25.5 L MCH RDW 20.0 H Plt Count 894 H Lymph % (Auto) [place] % (Auto) [place] # Baso # Seg Neutrophils % Seg Neuts % (Manual) Lymphocytes % (Manual) Monocytes % (Manual) Seg Neutrophils # Seg Neutrophils # Man Lymphocytes # (Manual) Monocytes # (Manual) Eosinophils # (Manual) Basophils # (Manual) PT INR APTT ABG pH ABG pO2 ABG HCO3 ABG O2 Saturation ABG Base Excess ABG Hemoglobin Oxyhemoglobin Sodium Potassium Chloride Carbon Dioxide BUN Creatinine Glucose POC Glucose 120 H 140 H Lactic Acid Calcium Ionized Calcium Phosphorus Magnesium Total Bilirubin AST ALT Alkaline Phosphatase Ammonia Total Creatine Kinase CK-MB (CK-2) CK-MB (CK-2) Rel Index Total Protein Albumin Urine WBC (Auto) Vancomycin Trough Salicylates Acetaminophen Plasma/Serum Alcohol Crossmatch 12/26/19 12/26/19 12/26/19 09:47 11:46 17:52 WBC RBC Hgb Hct MCH RDW Plt Count Lymph % (Auto) [place] % (Auto) [place] # Baso # Seg Neutrophils % Seg Neuts % (Manual) Lymphocytes % (Manual) Monocytes % (Manual) Seg Neutrophils # Seg Neutrophils # Man Lymphocytes # (Manual) Monocytes # (Manual) Eosinophils # (Manual) Basophils # (Manual) PT INR APTT ABG pH ABG pO2 ABG HCO3 ABG O2 Saturation ABG Base Excess ABG Hemoglobin Oxyhemoglobin Sodium Potassium Chloride Carbon Dioxide 18 L BUN 65 H Creatinine 1.4 H Glucose 132 H POC Glucose 110 H 145 H Lactic Acid Calcium Ionized Calcium Phosphorus Magnesium Total Bilirubin AST ALT Alkaline Phosphatase Ammonia Total Creatine Kinase CK-MB (CK-2) CK-MB (CK-2) Rel Index Total Protein Albumin Urine WBC (Auto) Vancomycin Trough Salicylates Acetaminophen Plasma/Serum Alcohol Crossmatch 12/27/19 12/27/19 12/27/19 00:01 03:42 03:42 WBC 18.0 H RBC 2.86 L Hgb 8.0 L Hct 25.2 L MCH RDW 19.2 H Plt Count 873 H Lymph % (Auto) 8.4 L [place] % (Auto) 7.5 H [place] # 1.4 H Baso # 0.2 H Seg Neutrophils % 82.2 H Seg Neuts % (Manual) Lymphocytes % (Manual) Monocytes % (Manual) Seg Neutrophils # 14.8 H Seg Neutrophils # Man Lymphocytes # (Manual) Monocytes # (Manual) Eosinophils # (Manual) Basophils # (Manual) PT INR APTT ABG pH ABG pO2 ABG HCO3 ABG O2 Saturation ABG Base Excess ABG Hemoglobin Oxyhemoglobin Sodium Potassium Chloride Carbon Dioxide BUN 73 H Creatinine 1.4 H Glucose 119 H POC Glucose 124 H Lactic Acid Calcium Ionized Calcium Phosphorus Magnesium Total Bilirubin AST ALT Alkaline Phosphatase Ammonia Total Creatine Kinase CK-MB (CK-2) CK-MB (CK-2) Rel Index Total Protein Albumin Urine WBC (Auto) Vancomycin Trough Salicylates Acetaminophen Plasma/Serum Alcohol Crossmatch 12/27/19 12/27/19 12/27/19 05:45 11:45 17:29 WBC RBC Hgb Hct MCH RDW Plt Count Lymph % (Auto) [place] % (Auto) [place] # Baso # Seg Neutrophils % Seg Neuts % (Manual) Lymphocytes % (Manual) Monocytes % (Manual) Seg Neutrophils # Seg Neutrophils # Man Lymphocytes # (Manual) Monocytes # (Manual) Eosinophils # (Manual) Basophils # (Manual) PT INR APTT ABG pH ABG pO2 ABG HCO3 ABG O2 Saturation ABG Base Excess ABG Hemoglobin Oxyhemoglobin Sodium Potassium Chloride Carbon Dioxide BUN Creatinine Glucose POC Glucose 131 H 123 H 134 H Lactic Acid Calcium Ionized Calcium Phosphorus Magnesium Total Bilirubin AST ALT Alkaline Phosphatase Ammonia Total Creatine Kinase CK-MB (CK-2) CK-MB (CK-2) Rel Index Total Protein Albumin Urine WBC (Auto) Vancomycin Trough Salicylates Acetaminophen Plasma/Serum Alcohol Crossmatch 12/28/19 12/28/19 12/28/19 00:12 05:14 11:53 WBC RBC Hgb Hct MCH RDW Plt Count Lymph % (Auto) [place] % (Auto) [place] # Baso # Seg Neutrophils % Seg Neuts % (Manual) Lymphocytes % (Manual) Monocytes % (Manual) Seg Neutrophils # Seg Neutrophils # Man Lymphocytes # (Manual) Monocytes # (Manual) Eosinophils # (Manual) Basophils # (Manual) PT INR APTT ABG pH ABG pO2 ABG HCO3 ABG O2 Saturation ABG Base Excess ABG Hemoglobin Oxyhemoglobin Sodium Potassium Chloride Carbon Dioxide BUN Creatinine Glucose POC Glucose 138 H 130 H 146 H Lactic Acid Calcium Ionized Calcium Phosphorus Magnesium Total Bilirubin AST ALT Alkaline Phosphatase Ammonia Total Creatine Kinase CK-MB (CK-2) CK-MB (CK-2) Rel Index Total Protein Albumin Urine WBC (Auto) Vancomycin Trough Salicylates Acetaminophen Plasma/Serum Alcohol Crossmatch 12/28/19 12/29/19 12/29/19 17:39 00:01 18:11 WBC RBC Hgb Hct MCH RDW Plt Count Lymph % (Auto) [place] % (Auto) [place] # Baso # Seg Neutrophils % Seg Neuts % (Manual) Lymphocytes % (Manual) Monocytes % (Manual) Seg Neutrophils # Seg Neutrophils # Man Lymphocytes # (Manual) Monocytes # (Manual) Eosinophils # (Manual) Basophils # (Manual) PT INR APTT ABG pH ABG pO2 ABG HCO3 ABG O2 Saturation ABG Base Excess ABG Hemoglobin Oxyhemoglobin Sodium Potassium Chloride Carbon Dioxide BUN Creatinine Glucose POC Glucose 117 H 139 H 130 H Lactic Acid Calcium Ionized Calcium Phosphorus Magnesium Total Bilirubin AST ALT Alkaline Phosphatase Ammonia Total Creatine Kinase CK-MB (CK-2) CK-MB (CK-2) Rel Index Total Protein Albumin Urine WBC (Auto) Vancomycin Trough Salicylates Acetaminophen Plasma/Serum Alcohol Crossmatch 12/29/19 12/30/19 12/30/19 23:09 00:02 01:06 WBC 16.7 H RBC 2.91 L Hgb 8.2 L Hct 25.4 L MCH RDW 18.7 H Plt Count 708 H Lymph % (Auto) 9.4 L [place] % (Auto) [place] # 0.9 H Baso # Seg Neutrophils % 83.5 H Seg Neuts % (Manual) Lymphocytes % (Manual) Monocytes % (Manual) Seg Neutrophils # 14.0 H Seg Neutrophils # Man Lymphocytes # (Manual) Monocytes # (Manual) Eosinophils # (Manual) Basophils # (Manual) PT INR APTT ABG pH ABG pO2 ABG HCO3 ABG O2 Saturation ABG Base Excess ABG Hemoglobin Oxyhemoglobin Sodium Potassium Chloride Carbon Dioxide BUN Creatinine Glucose POC Glucose 120 H 114 H Lactic Acid Calcium Ionized Calcium Phosphorus Magnesium Total Bilirubin AST ALT Alkaline Phosphatase Ammonia Total Creatine Kinase CK-MB (CK-2) CK-MB (CK-2) Rel Index Total Protein Albumin Urine WBC (Auto) Vancomycin Trough Salicylates Acetaminophen Plasma/Serum Alcohol Crossmatch 12/30/19 12/30/19 12/30/19 01:06 04:23 05:18 WBC RBC Hgb Hct MCH RDW Plt Count Lymph % (Auto) [place] % (Auto) [place] # Baso # Seg Neutrophils % Seg Neuts % (Manual) Lymphocytes % (Manual) Monocytes % (Manual) Seg Neutrophils # Seg Neutrophils # Man Lymphocytes # (Manual) Monocytes # (Manual) Eosinophils # (Manual) Basophils # (Manual) PT INR APTT ABG pH ABG pO2 ABG HCO3 ABG O2 Saturation ABG Base Excess ABG Hemoglobin 8.3 L Oxyhemoglobin Sodium Potassium Chloride Carbon Dioxide BUN 70 H Creatinine Glucose 122 H POC Glucose 130 H Lactic Acid Calcium Ionized Calcium Phosphorus Magnesium Total Bilirubin AST ALT Alkaline Phosphatase Ammonia Total Creatine Kinase CK-MB (CK-2) CK-MB (CK-2) Rel Index Total Protein Albumin Urine WBC (Auto) Vancomycin Trough Salicylates Acetaminophen Plasma/Serum Alcohol Crossmatch 12/30/19 12/30/19 12/30/19 05:40 12:17 17:43 WBC RBC Hgb Hct MCH RDW Plt Count Lymph % (Auto) [place] % (Auto) [place] # Baso # Seg Neutrophils % Seg Neuts % (Manual) Lymphocytes % (Manual) Monocytes % (Manual) Seg Neutrophils # Seg Neutrophils # Man Lymphocytes # (Manual) Monocytes # (Manual) Eosinophils # (Manual) Basophils # (Manual) PT INR APTT ABG pH ABG pO2 ABG HCO3 ABG O2 Saturation ABG Base Excess ABG Hemoglobin Oxyhemoglobin Sodium Potassium Chloride Carbon Dioxide BUN Creatinine Glucose POC Glucose 135 H 132 H 118 H Lactic Acid Calcium Ionized Calcium Phosphorus Magnesium Total Bilirubin AST ALT Alkaline Phosphatase Ammonia Total Creatine Kinase CK-MB (CK-2) CK-MB (CK-2) Rel Index Total Protein Albumin Urine WBC (Auto) Vancomycin Trough Salicylates Acetaminophen Plasma/Serum Alcohol Crossmatch 12/30/19 12/31/19 12/31/19 23:29 05:19 17:50 WBC RBC Hgb Hct MCH RDW Plt Count Lymph % (Auto) [place] % (Auto) [place] # Baso # Seg Neutrophils % Seg Neuts % (Manual) Lymphocytes % (Manual) Monocytes % (Manual) Seg Neutrophils # Seg Neutrophils # Man Lymphocytes # (Manual) Monocytes # (Manual) Eosinophils # (Manual) Basophils # (Manual) PT INR APTT ABG pH ABG pO2 ABG HCO3 ABG O2 Saturation ABG Base Excess ABG Hemoglobin Oxyhemoglobin Sodium Potassium Chloride Carbon Dioxide BUN Creatinine Glucose POC Glucose 114 H 109 H 116 H Lactic Acid Calcium Ionized Calcium Phosphorus Magnesium Total Bilirubin AST ALT Alkaline Phosphatase Ammonia Total Creatine Kinase CK-MB (CK-2) CK-MB (CK-2) Rel Index Total Protein Albumin Urine WBC (Auto) Vancomycin Trough Salicylates Acetaminophen Plasma/Serum Alcohol Crossmatch 01/01/20 01/01/20 01/01/20 00:10 05:19 12:02 WBC RBC Hgb Hct MCH RDW Plt Count Lymph % (Auto) [place] % (Auto) [place] # Baso # Seg Neutrophils % Seg Neuts % (Manual) Lymphocytes % (Manual) Monocytes % (Manual) Seg Neutrophils # Seg Neutrophils # Man Lymphocytes # (Manual) Monocytes # (Manual) Eosinophils # (Manual) Basophils # (Manual) PT INR APTT ABG pH ABG pO2 ABG HCO3 ABG O2 Saturation ABG Base Excess ABG Hemoglobin Oxyhemoglobin Sodium Potassium Chloride Carbon Dioxide BUN Creatinine Glucose POC Glucose 131 H 122 H 136 H Lactic Acid Calcium Ionized Calcium Phosphorus Magnesium Total Bilirubin AST ALT Alkaline Phosphatase Ammonia Total Creatine Kinase CK-MB (CK-2) CK-MB (CK-2) Rel Index Total Protein Albumin Urine WBC (Auto) Vancomycin Trough Salicylates Acetaminophen Plasma/Serum Alcohol Crossmatch 01/02/20 01/02/20 01/02/20 00:24 05:36 11:41 WBC RBC Hgb Hct MCH RDW Plt Count Lymph % (Auto) [place] % (Auto) [place] # Baso # Seg Neutrophils % Seg Neuts % (Manual) Lymphocytes % (Manual) Monocytes % (Manual) Seg Neutrophils # Seg Neutrophils # Man Lymphocytes # (Manual) Monocytes # (Manual) Eosinophils # (Manual) Basophils # (Manual) PT INR APTT ABG pH ABG pO2 ABG HCO3 ABG O2 Saturation ABG Base Excess ABG Hemoglobin Oxyhemoglobin Sodium Potassium Chloride Carbon Dioxide BUN Creatinine Glucose POC Glucose 119 H 109 H 125 H Lactic Acid Calcium Ionized Calcium Phosphorus Magnesium Total Bilirubin AST ALT Alkaline Phosphatase Ammonia Total Creatine Kinase CK-MB (CK-2) CK-MB (CK-2) Rel Index Total Protein Albumin Urine WBC (Auto) Vancomycin Trough Salicylates Acetaminophen Plasma/Serum Alcohol Crossmatch 01/02/20 01/03/20 01/03/20 17:49 05:29 12:13 WBC RBC Hgb Hct MCH RDW Plt Count Lymph % (Auto) [place] % (Auto) [place] # Baso # Seg Neutrophils % Seg Neuts % (Manual) Lymphocytes % (Manual) Monocytes % (Manual) Seg Neutrophils # Seg Neutrophils # Man Lymphocytes # (Manual) Monocytes # (Manual) Eosinophils # (Manual) Basophils # (Manual) PT INR APTT ABG pH ABG pO2 ABG HCO3 ABG O2 Saturation ABG Base Excess ABG Hemoglobin Oxyhemoglobin Sodium Potassium Chloride Carbon Dioxide BUN Creatinine Glucose POC Glucose 130 H 132 H 113 H Lactic Acid Calcium Ionized Calcium Phosphorus Magnesium Total Bilirubin AST ALT Alkaline Phosphatase Ammonia Total Creatine Kinase CK-MB (CK-2) CK-MB (CK-2) Rel Index Total Protein Albumin Urine WBC (Auto) Vancomycin Trough Salicylates Acetaminophen Plasma/Serum Alcohol Crossmatch 01/03/20 01/04/20 01/04/20 17:32 00:19 05:26 WBC RBC Hgb Hct MCH RDW Plt Count Lymph % (Auto) [place] % (Auto) [place] # Baso # Seg Neutrophils % Seg Neuts % (Manual) Lymphocytes % (Manual) Monocytes % (Manual) Seg Neutrophils # Seg Neutrophils # Man Lymphocytes # (Manual) Monocytes # (Manual) Eosinophils # (Manual) Basophils # (Manual) PT INR APTT ABG pH ABG pO2 ABG HCO3 ABG O2 Saturation ABG Base Excess ABG Hemoglobin Oxyhemoglobin Sodium Potassium Chloride Carbon Dioxide BUN Creatinine Glucose POC Glucose 127 H 141 H 129 H Lactic Acid Calcium Ionized Calcium Phosphorus Magnesium Total Bilirubin AST ALT Alkaline Phosphatase Ammonia Total Creatine Kinase CK-MB (CK-2) CK-MB (CK-2) Rel Index Total Protein Albumin Urine WBC (Auto) Vancomycin Trough Salicylates Acetaminophen Plasma/Serum Alcohol Crossmatch 01/04/20 01/04/20 01/05/20 11:39 17:29 05:22 WBC RBC Hgb Hct MCH RDW Plt Count Lymph % (Auto) [place] % (Auto) [place] # Baso # Seg Neutrophils % Seg Neuts % (Manual) Lymphocytes % (Manual) Monocytes % (Manual) Seg Neutrophils # Seg Neutrophils # Man Lymphocytes # (Manual) Monocytes # (Manual) Eosinophils # (Manual) Basophils # (Manual) PT INR APTT ABG pH ABG pO2 ABG HCO3 ABG O2 Saturation ABG Base Excess ABG Hemoglobin Oxyhemoglobin Sodium Potassium Chloride Carbon Dioxide BUN Creatinine Glucose POC Glucose 167 H 132 H 121 H Lactic Acid Calcium Ionized Calcium Phosphorus Magnesium Total Bilirubin AST ALT Alkaline Phosphatase Ammonia Total Creatine Kinase CK-MB (CK-2) CK-MB (CK-2) Rel Index Total Protein Albumin Urine WBC (Auto) Vancomycin Trough Salicylates Acetaminophen Plasma/Serum Alcohol Crossmatch 01/05/20 01/05/20 01/05/20 12:25 17:40 18:06 WBC RBC Hgb Hct MCH RDW Plt Count Lymph % (Auto) [place] % (Auto) [place] # Baso # Seg Neutrophils % Seg Neuts % (Manual) Lymphocytes % (Manual) Monocytes % (Manual) Seg Neutrophils # Seg Neutrophils # Man Lymphocytes # (Manual) Monocytes # (Manual) Eosinophils # (Manual) Basophils # (Manual) PT INR APTT ABG pH 7.472 H ABG pO2 99.2 H ABG HCO3 ABG O2 Saturation ABG Base Excess ABG Hemoglobin 7.8 L Oxyhemoglobin Sodium Potassium Chloride Carbon Dioxide BUN Creatinine Glucose POC Glucose 106 H 110 H Lactic Acid Calcium Ionized Calcium Phosphorus Magnesium Total Bilirubin AST ALT Alkaline Phosphatase Ammonia Total Creatine Kinase CK-MB (CK-2) CK-MB (CK-2) Rel Index Total Protein Albumin Urine WBC (Auto) Vancomycin Trough Salicylates Acetaminophen Plasma/Serum Alcohol Crossmatch 01/06/20 01/06/20 01/06/20 00:11 05:16 11:30 WBC RBC Hgb Hct MCH RDW Plt Count Lymph % (Auto) [place] % (Auto) [place] # Baso # Seg Neutrophils % Seg Neuts % (Manual) Lymphocytes % (Manual) Monocytes % (Manual) Seg Neutrophils # Seg Neutrophils # Man Lymphocytes # (Manual) Monocytes # (Manual) Eosinophils # (Manual) Basophils # (Manual) PT INR APTT ABG pH ABG pO2 ABG HCO3 ABG O2 Saturation ABG Base Excess ABG Hemoglobin Oxyhemoglobin Sodium Potassium Chloride Carbon Dioxide BUN Creatinine Glucose POC Glucose 108 H 124 H 125 H Lactic Acid Calcium Ionized Calcium Phosphorus Magnesium Total Bilirubin AST ALT Alkaline Phosphatase Ammonia Total Creatine Kinase CK-MB (CK-2) CK-MB (CK-2) Rel Index Total Protein Albumin Urine WBC (Auto) Vancomycin Trough Salicylates Acetaminophen Plasma/Serum Alcohol Crossmatch 01/06/20 01/06/20 01/07/20 17:53 23:51 04:12 WBC 16.5 H RBC 3.29 L Hgb 9.3 L Hct 28.1 L MCH RDW 18.2 H Plt Count 526 H Lymph % (Auto) 8.4 L [place] % (Auto) [place] # 1.0 H Baso # Seg Neutrophils % 84.4 H Seg Neuts % (Manual) Lymphocytes % (Manual) Monocytes % (Manual) Seg Neutrophils # 13.9 H Seg Neutrophils # Man Lymphocytes # (Manual) Monocytes # (Manual) Eosinophils # (Manual) Basophils # (Manual) PT INR APTT ABG pH ABG pO2 ABG HCO3 ABG O2 Saturation ABG Base Excess ABG Hemoglobin Oxyhemoglobin Sodium Potassium Chloride Carbon Dioxide BUN Creatinine Glucose POC Glucose 166 H 128 H Lactic Acid Calcium Ionized Calcium Phosphorus Magnesium Total Bilirubin AST ALT Alkaline Phosphatase Ammonia Total Creatine Kinase CK-MB (CK-2) CK-MB (CK-2) Rel Index Total Protein Albumin Urine WBC (Auto) Vancomycin Trough Salicylates Acetaminophen Plasma/Serum Alcohol Crossmatch 01/07/20 01/07/20 01/07/20 04:12 04:45 11:51 WBC RBC Hgb Hct MCH RDW Plt Count Lymph % (Auto) [place] % (Auto) [place] # Baso # Seg Neutrophils % Seg Neuts % (Manual) Lymphocytes % (Manual) Monocytes % (Manual) Seg Neutrophils # Seg Neutrophils # Man Lymphocytes # (Manual) Monocytes # (Manual) Eosinophils # (Manual) Basophils # (Manual) PT INR APTT ABG pH ABG pO2 ABG HCO3 ABG O2 Saturation ABG Base Excess ABG Hemoglobin Oxyhemoglobin Sodium 136 L Potassium Chloride Carbon Dioxide 21 L BUN 44 H Creatinine 0.6 L Glucose 124 H POC Glucose 134 H 138 H Lactic Acid Calcium Ionized Calcium Phosphorus Magnesium Total Bilirubin AST ALT Alkaline Phosphatase Ammonia Total Creatine Kinase CK-MB (CK-2) CK-MB (CK-2) Rel Index Total Protein Albumin Urine WBC (Auto) Vancomycin Trough Salicylates Acetaminophen Plasma/Serum Alcohol Crossmatch 01/07/20 01/08/20 01/08/20 17:36 00:33 05:29 WBC RBC Hgb Hct MCH RDW Plt Count Lymph % (Auto) [place] % (Auto) [place] # Baso # Seg Neutrophils % Seg Neuts % (Manual) Lymphocytes % (Manual) Monocytes % (Manual) Seg Neutrophils # Seg Neutrophils # Man Lymphocytes # (Manual) Monocytes # (Manual) Eosinophils # (Manual) Basophils # (Manual) PT INR APTT ABG pH ABG pO2 ABG HCO3 ABG O2 Saturation ABG Base Excess ABG Hemoglobin Oxyhemoglobin Sodium Potassium Chloride Carbon Dioxide BUN Creatinine Glucose POC Glucose 128 H 119 H 124 H Lactic Acid Calcium Ionized Calcium Phosphorus Magnesium Total Bilirubin AST ALT Alkaline Phosphatase Ammonia Total Creatine Kinase CK-MB (CK-2) CK-MB (CK-2) Rel Index Total Protein Albumin Urine WBC (Auto) Vancomycin Trough Salicylates Acetaminophen Plasma/Serum Alcohol Crossmatch 01/08/20 01/08/20 01/08/20 12:51 20:25 23:22 WBC RBC Hgb Hct MCH RDW Plt Count Lymph % (Auto) [place] % (Auto) [place] # Baso # Seg Neutrophils % Seg Neuts % (Manual) Lymphocytes % (Manual) Monocytes % (Manual) Seg Neutrophils # Seg Neutrophils # Man Lymphocytes # (Manual) Monocytes # (Manual) Eosinophils # (Manual) Basophils # (Manual) PT INR APTT ABG pH ABG pO2 132.2 H ABG HCO3 ABG O2 Saturation ABG Base Excess ABG Hemoglobin Oxyhemoglobin Sodium Potassium Chloride Carbon Dioxide BUN Creatinine Glucose POC Glucose 128 H 127 H Lactic Acid Calcium Ionized Calcium Phosphorus Magnesium Total Bilirubin AST ALT Alkaline Phosphatase Ammonia Total Creatine Kinase CK-MB (CK-2) CK-MB (CK-2) Rel Index Total Protein Albumin Urine WBC (Auto) Vancomycin Trough Salicylates Acetaminophen Plasma/Serum Alcohol Crossmatch 01/09/20 01/09/20 01/09/20 05:48 08:51 11:29 WBC RBC Hgb Hct MCH RDW Plt Count Lymph % (Auto) [place] % (Auto) [place] # Baso # Seg Neutrophils % Seg Neuts % (Manual) Lymphocytes % (Manual) Monocytes % (Manual) Seg Neutrophils # Seg Neutrophils # Man Lymphocytes # (Manual) Monocytes # (Manual) Eosinophils # (Manual) Basophils # (Manual) PT INR APTT ABG pH ABG pO2 94.3 H ABG HCO3 ABG O2 Saturation ABG Base Excess ABG Hemoglobin 9.5 L Oxyhemoglobin Sodium Potassium Chloride Carbon Dioxide BUN Creatinine Glucose POC Glucose 120 H 112 H Lactic Acid Calcium Ionized Calcium Phosphorus Magnesium Total Bilirubin AST ALT Alkaline Phosphatase Ammonia Total Creatine Kinase CK-MB (CK-2) CK-MB (CK-2) Rel Index Total Protein Albumin Urine WBC (Auto) Vancomycin Trough Salicylates Acetaminophen Plasma/Serum Alcohol Crossmatch 01/09/20 01/10/20 01/10/20 17:57 05:17 12:28 WBC RBC Hgb Hct MCH RDW Plt Count Lymph % (Auto) [place] % (Auto) [place] # Baso # Seg Neutrophils % Seg Neuts % (Manual) Lymphocytes % (Manual) Monocytes % (Manual) Seg Neutrophils # Seg Neutrophils # Man Lymphocytes # (Manual) Monocytes # (Manual) Eosinophils # (Manual) Basophils # (Manual) PT INR APTT ABG pH ABG pO2 ABG HCO3 ABG O2 Saturation ABG Base Excess ABG Hemoglobin Oxyhemoglobin Sodium Potassium Chloride Carbon Dioxide BUN Creatinine Glucose POC Glucose 122 H 115 H 116 H Lactic Acid Calcium Ionized Calcium Phosphorus Magnesium Total Bilirubin AST ALT Alkaline Phosphatase Ammonia Total Creatine Kinase CK-MB (CK-2) CK-MB (CK-2) Rel Index Total Protein Albumin Urine WBC (Auto) Vancomycin Trough Salicylates Acetaminophen Plasma/Serum Alcohol Crossmatch 01/10/20 01/10/20 01/11/20 18:25 23:47 06:05 WBC RBC Hgb Hct MCH RDW Plt Count Lymph % (Auto) [place] % (Auto) [place] # Baso # Seg Neutrophils % Seg Neuts % (Manual) Lymphocytes % (Manual) Monocytes % (Manual) Seg Neutrophils # Seg Neutrophils # Man Lymphocytes # (Manual) Monocytes # (Manual) Eosinophils # (Manual) Basophils # (Manual) PT INR APTT ABG pH ABG pO2 ABG HCO3 ABG O2 Saturation ABG Base Excess ABG Hemoglobin Oxyhemoglobin Sodium Potassium Chloride Carbon Dioxide BUN Creatinine Glucose POC Glucose 123 H 115 H 151 H Lactic Acid Calcium Ionized Calcium Phosphorus Magnesium Total Bilirubin AST ALT Alkaline Phosphatase Ammonia Total Creatine Kinase CK-MB (CK-2) CK-MB (CK-2) Rel Index Total Protein Albumin Urine WBC (Auto) Vancomycin Trough Salicylates Acetaminophen Plasma/Serum Alcohol Crossmatch 01/11/20 01/11/20 01/11/20 07:00 07:00 12:27 WBC 11.8 H RBC 3.40 L Hgb 9.4 L Hct 29.3 L MCH RDW 18.1 H Plt Count 549 H Lymph % (Auto) [place] % (Auto) 9.1 H [place] # 1.1 H Baso # Seg Neutrophils % 73.3 H Seg Neuts % (Manual) Lymphocytes % (Manual) Monocytes % (Manual) Seg Neutrophils # 8.7 H Seg Neutrophils # Man Lymphocytes # (Manual) Monocytes # (Manual) Eosinophils # (Manual) Basophils # (Manual) PT INR APTT ABG pH ABG pO2 ABG HCO3 ABG O2 Saturation ABG Base Excess ABG Hemoglobin Oxyhemoglobin Sodium 134 L Potassium Chloride 97.7 L Carbon Dioxide 21 L BUN 38 H Creatinine 0.5 L Glucose 168 H POC Glucose 117 H Lactic Acid Calcium 10.5 H Ionized Calcium Phosphorus Magnesium Total Bilirubin AST ALT Alkaline Phosphatase Ammonia Total Creatine Kinase CK-MB (CK-2) CK-MB (CK-2) Rel Index Total Protein Albumin Urine WBC (Auto) Vancomycin Trough Salicylates Acetaminophen Plasma/Serum Alcohol Crossmatch 01/11/20 01/12/20 01/12/20 18:19 00:53 05:24 WBC RBC Hgb Hct MCH RDW Plt Count Lymph % (Auto) [place] % (Auto) [place] # Baso # Seg Neutrophils % Seg Neuts % (Manual) Lymphocytes % (Manual) Monocytes % (Manual) Seg Neutrophils # Seg Neutrophils # Man Lymphocytes # (Manual) Monocytes # (Manual) Eosinophils # (Manual) Basophils # (Manual) PT INR APTT ABG pH ABG pO2 ABG HCO3 ABG O2 Saturation ABG Base Excess ABG Hemoglobin Oxyhemoglobin Sodium Potassium Chloride Carbon Dioxide BUN Creatinine Glucose POC Glucose 126 H 126 H 128 H Lactic Acid Calcium Ionized Calcium Phosphorus Magnesium Total Bilirubin AST ALT Alkaline Phosphatase Ammonia Total Creatine Kinase CK-MB (CK-2) CK-MB (CK-2) Rel Index Total Protein Albumin Urine WBC (Auto) Vancomycin Trough Salicylates Acetaminophen Plasma/Serum Alcohol Crossmatch 01/12/20 01/12/20 01/13/20 13:39 18:02 00:27 WBC RBC Hgb Hct MCH RDW Plt Count Lymph % (Auto) [place] % (Auto) [place] # Baso # Seg Neutrophils % Seg Neuts % (Manual) Lymphocytes % (Manual) Monocytes % (Manual) Seg Neutrophils # Seg Neutrophils # Man Lymphocytes # (Manual) Monocytes # (Manual) Eosinophils # (Manual) Basophils # (Manual) PT INR APTT ABG pH ABG pO2 ABG HCO3 ABG O2 Saturation ABG Base Excess ABG Hemoglobin Oxyhemoglobin Sodium Potassium Chloride Carbon Dioxide BUN Creatinine Glucose POC Glucose 146 H 125 H 131 H Lactic Acid Calcium Ionized Calcium Phosphorus Magnesium Total Bilirubin AST ALT Alkaline Phosphatase Ammonia Total Creatine Kinase CK-MB (CK-2) CK-MB (CK-2) Rel Index Total Protein Albumin Urine WBC (Auto) Vancomycin Trough Salicylates Acetaminophen Plasma/Serum Alcohol Crossmatch 04/26/20 04/26/20 04/26/20 05:44 11:54 17:18 WBC RBC Hgb Hct MCH RDW Plt Count Lymph % (Auto) [place] % (Auto) [place] # Baso # Seg Neutrophils % Seg Neuts % (Manual) Lymphocytes % (Manual) Monocytes % (Manual) Seg Neutrophils # Seg Neutrophils # Man Lymphocytes # (Manual) Monocytes # (Manual) Eosinophils # (Manual) Basophils # (Manual) PT INR APTT ABG pH ABG pO2 ABG HCO3 ABG O2 Saturation ABG Base Excess ABG Hemoglobin Oxyhemoglobin Sodium Potassium Chloride Carbon Dioxide BUN Creatinine Glucose POC Glucose 148 H 140 H 130 H Lactic Acid Calcium Ionized Calcium Phosphorus Magnesium Total Bilirubin AST ALT Alkaline Phosphatase Ammonia Total Creatine Kinase CK-MB (CK-2) CK-MB (CK-2) Rel Index Total Protein Albumin Urine WBC (Auto) Vancomycin Trough Salicylates Acetaminophen Plasma/Serum Alcohol Crossmatch 01/14/20 01/14/20 01/14/20 00:16 05:45 12:19 WBC RBC Hgb Hct MCH RDW Plt Count Lymph % (Auto) [place] % (Auto) [place] # Baso # Seg Neutrophils % Seg Neuts % (Manual) Lymphocytes % (Manual) Monocytes % (Manual) Seg Neutrophils # Seg Neutrophils # Man Lymphocytes # (Manual) Monocytes # (Manual) Eosinophils # (Manual) Basophils # (Manual) PT INR APTT ABG pH ABG pO2 ABG HCO3 ABG O2 Saturation ABG Base Excess ABG Hemoglobin Oxyhemoglobin Sodium Potassium Chloride Carbon Dioxide BUN Creatinine Glucose POC Glucose 125 H 146 H 147 H Lactic Acid Calcium Ionized Calcium Phosphorus Magnesium Total Bilirubin AST ALT Alkaline Phosphatase Ammonia Total Creatine Kinase CK-MB (CK-2) CK-MB (CK-2) Rel Index Total Protein Albumin Urine WBC (Auto) Vancomycin Trough Salicylates Acetaminophen Plasma/Serum Alcohol Crossmatch 01/14/20 01/14/20 01/15/20 18:10 23:54 05:14 WBC RBC Hgb Hct MCH RDW Plt Count Lymph % (Auto) [place] % (Auto) [place] # Baso # Seg Neutrophils % Seg Neuts % (Manual) Lymphocytes % (Manual) Monocytes % (Manual) Seg Neutrophils # Seg Neutrophils # Man Lymphocytes # (Manual) Monocytes # (Manual) Eosinophils # (Manual) Basophils # (Manual) PT INR APTT ABG pH ABG pO2 ABG HCO3 ABG O2 Saturation ABG Base Excess ABG Hemoglobin Oxyhemoglobin Sodium Potassium Chloride Carbon Dioxide BUN Creatinine Glucose POC Glucose 136 H 109 H 111 H Lactic Acid Calcium Ionized Calcium Phosphorus Magnesium Total Bilirubin AST ALT Alkaline Phosphatase Ammonia Total Creatine Kinase CK-MB (CK-2) CK-MB (CK-2) Rel Index Total Protein Albumin Urine WBC (Auto) Vancomycin Trough Salicylates Acetaminophen Plasma/Serum Alcohol Crossmatch 01/15/20 01/15/20 01/16/20 12:34 23:25 05:06 WBC RBC Hgb Hct MCH RDW Plt Count Lymph % (Auto) [place] % (Auto) [place] # Baso # Seg Neutrophils % Seg Neuts % (Manual) Lymphocytes % (Manual) Monocytes % (Manual) Seg Neutrophils # Seg Neutrophils # Man Lymphocytes # (Manual) Monocytes # (Manual) Eosinophils # (Manual) Basophils # (Manual) PT INR APTT ABG pH ABG pO2 ABG HCO3 ABG O2 Saturation ABG Base Excess ABG Hemoglobin Oxyhemoglobin Sodium Potassium Chloride Carbon Dioxide BUN Creatinine Glucose POC Glucose 131 H 120 H 121 H Lactic Acid Calcium Ionized Calcium Phosphorus Magnesium Total Bilirubin AST ALT Alkaline Phosphatase Ammonia Total Creatine Kinase CK-MB (CK-2) CK-MB (CK-2) Rel Index Total Protein Albumin Urine WBC (Auto) Vancomycin Trough Salicylates Acetaminophen Plasma/Serum Alcohol Crossmatch 01/16/20 01/16/20 01/17/20 12:15 23:46 05:32 WBC 13.6 H RBC 3.27 L Hgb 9.3 L Hct 28.5 L MCH RDW 17.0 H Plt Count 490 H Lymph % (Auto) 13.1 L [place] % (Auto) [place] # 1.0 H Baso # Seg Neutrophils % 77.5 H Seg Neuts % (Manual) Lymphocytes % (Manual) Monocytes % (Manual) Seg Neutrophils # 10.5 H Seg Neutrophils # Man Lymphocytes # (Manual) Monocytes # (Manual) Eosinophils # (Manual) Basophils # (Manual) PT INR APTT ABG pH ABG pO2 ABG HCO3 ABG O2 Saturation ABG Base Excess ABG Hemoglobin Oxyhemoglobin Sodium Potassium Chloride Carbon Dioxide BUN Creatinine Glucose POC Glucose 152 H 107 H Lactic Acid Calcium Ionized Calcium Phosphorus Magnesium Total Bilirubin AST ALT Alkaline Phosphatase Ammonia Total Creatine Kinase CK-MB (CK-2) CK-MB (CK-2) Rel Index Total Protein Albumin Urine WBC (Auto) Vancomycin Trough Salicylates Acetaminophen Plasma/Serum Alcohol Crossmatch 01/17/20 01/17/2001/16/20 06:47 12:16 17:21 WBC RBC Hgb Hct MCH RDW Plt Count Lymph % (Auto) [place] % (Auto) [place] # Baso # Seg Neutrophils % Seg Neuts % (Manual) Lymphocytes % (Manual) Monocytes % (Manual) Seg Neutrophils # Seg Neutrophils # Man Lymphocytes # (Manual) Monocytes # (Manual) Eosinophils # (Manual) Basophils # (Manual) PT INR APTT ABG pH ABG pO2 ABG HCO3 ABG O2 Saturation ABG Base Excess ABG Hemoglobin Oxyhemoglobin Sodium Potassium Chloride Carbon Dioxide BUN Creatinine Glucose POC Glucose 112 H 145 H 150 H Lactic Acid Calcium Ionized Calcium Phosphorus Magnesium Total Bilirubin AST ALT Alkaline Phosphatase Ammonia Total Creatine Kinase CK-MB (CK-2) CK-MB (CK-2) Rel Index Total Protein Albumin Urine WBC (Auto) Vancomycin Trough Salicylates Acetaminophen Plasma/Serum Alcohol Crossmatch 01/17/20 01/18/20 01/18/20 23:34 05:47 12:43 WBC RBC Hgb Hct MCH RDW Plt Count Lymph % (Auto) [place] % (Auto) [place] # Baso # Seg Neutrophils % Seg Neuts % (Manual) Lymphocytes % (Manual) Monocytes % (Manual) Seg Neutrophils # Seg Neutrophils # Man Lymphocytes # (Manual) Monocytes # (Manual) Eosinophils # (Manual) Basophils # (Manual) PT INR APTT ABG pH ABG pO2 ABG HCO3 ABG O2 Saturation ABG Base Excess ABG Hemoglobin Oxyhemoglobin Sodium Potassium Chloride Carbon Dioxide BUN Creatinine Glucose POC Glucose 160 H 130 H 124 H Lactic Acid Calcium Ionized Calcium Phosphorus Magnesium Total Bilirubin AST ALT Alkaline Phosphatase Ammonia Total Creatine Kinase CK-MB (CK-2) CK-MB (CK-2) Rel Index Total Protein Albumin Urine WBC (Auto) Vancomycin Trough Salicylates Acetaminophen Plasma/Serum Alcohol Crossmatch 01/18/20 01/19/20 01/19/20 18:26 00:14 06:24 WBC RBC Hgb Hct MCH RDW Plt Count Lymph % (Auto) [place] % (Auto) [place] # Baso # Seg Neutrophils % Seg Neuts % (Manual) Lymphocytes % (Manual) Monocytes % (Manual) Seg Neutrophils # Seg Neutrophils # Man Lymphocytes # (Manual) Monocytes # (Manual) Eosinophils # (Manual) Basophils # (Manual) PT INR APTT ABG pH ABG pO2 ABG HCO3 ABG O2 Saturation ABG Base Excess ABG Hemoglobin Oxyhemoglobin Sodium Potassium Chloride Carbon Dioxide BUN Creatinine Glucose POC Glucose 119 H 114 H 144 H Lactic Acid Calcium Ionized Calcium Phosphorus Magnesium Total Bilirubin AST ALT Alkaline Phosphatase Ammonia Total Creatine Kinase CK-MB (CK-2) CK-MB (CK-2) Rel Index Total Protein Albumin Urine WBC (Auto) Vancomycin Trough Salicylates Acetaminophen Plasma/Serum Alcohol Crossmatch 01/19/20 01/19/20 01/20/20 12:24 17:50 12:06 WBC RBC Hgb Hct MCH RDW Plt Count Lymph % (Auto) [place] % (Auto) [place] # Baso # Seg Neutrophils % Seg Neuts % (Manual) Lymphocytes % (Manual) Monocytes % (Manual) Seg Neutrophils # Seg Neutrophils # Man Lymphocytes # (Manual) Monocytes # (Manual) Eosinophils # (Manual) Basophils # (Manual) PT INR APTT ABG pH ABG pO2 ABG HCO3 ABG O2 Saturation ABG Base Excess ABG Hemoglobin Oxyhemoglobin Sodium Potassium Chloride Carbon Dioxide BUN Creatinine Glucose POC Glucose 132 H 144 H 135 H Lactic Acid Calcium Ionized Calcium Phosphorus Magnesium Total Bilirubin AST ALT Alkaline Phosphatase Ammonia Total Creatine Kinase CK-MB (CK-2) CK-MB (CK-2) Rel Index Total Protein Albumin Urine WBC (Auto) Vancomycin Trough Salicylates Acetaminophen Plasma/Serum Alcohol Crossmatch 01/21/20 01/21/20 01/21/20 05:46 13:02 23:49 WBC RBC Hgb Hct MCH RDW Plt Count Lymph % (Auto) [place] % (Auto) [place] # Baso # Seg Neutrophils % Seg Neuts % (Manual) Lymphocytes % (Manual) Monocytes % (Manual) Seg Neutrophils # Seg Neutrophils # Man Lymphocytes # (Manual) Monocytes # (Manual) Eosinophils # (Manual) Basophils # (Manual) PT INR APTT ABG pH ABG pO2 ABG HCO3 ABG O2 Saturation ABG Base Excess ABG Hemoglobin Oxyhemoglobin Sodium Potassium Chloride Carbon Dioxide BUN Creatinine Glucose POC Glucose 114 H 136 H 120 H Lactic Acid Calcium Ionized Calcium Phosphorus Magnesium Total Bilirubin AST ALT Alkaline Phosphatase Ammonia Total Creatine Kinase CK-MB (CK-2) CK-MB (CK-2) Rel Index Total Protein Albumin Urine WBC (Auto) Vancomycin Trough Salicylates Acetaminophen Plasma/Serum Alcohol Crossmatch 01/22/20 01/22/20 01/22/20 05:41 11:44 16:31 WBC RBC Hgb Hct MCH RDW Plt Count Lymph % (Auto) [place] % (Auto) [place] # Baso # Seg Neutrophils % Seg Neuts % (Manual) Lymphocytes % (Manual) Monocytes % (Manual) Seg Neutrophils # Seg Neutrophils # Man Lymphocytes # (Manual) Monocytes # (Manual) Eosinophils # (Manual) Basophils # (Manual) PT INR APTT ABG pH ABG pO2 ABG HCO3 ABG O2 Saturation ABG Base Excess ABG Hemoglobin Oxyhemoglobin Sodium Potassium Chloride Carbon Dioxide BUN Creatinine Glucose POC Glucose 124 H 173 H 111 H Lactic Acid Calcium Ionized Calcium Phosphorus Magnesium Total Bilirubin AST ALT Alkaline Phosphatase Ammonia Total Creatine Kinase CK-MB (CK-2) CK-MB (CK-2) Rel Index Total Protein Albumin Urine WBC (Auto) Vancomycin Trough Salicylates Acetaminophen Plasma/Serum Alcohol Crossmatch 01/22/20 01/23/20 01/23/20 23:25 05:15 12:15 WBC RBC Hgb Hct MCH RDW Plt Count Lymph % (Auto) [place] % (Auto) [place] # Baso # Seg Neutrophils % Seg Neuts % (Manual) Lymphocytes % (Manual) Monocytes % (Manual) Seg Neutrophils # Seg Neutrophils # Man Lymphocytes # (Manual) Monocytes # (Manual) Eosinophils # (Manual) Basophils # (Manual) PT INR APTT ABG pH ABG pO2 ABG HCO3 ABG O2 Saturation ABG Base Excess ABG Hemoglobin Oxyhemoglobin Sodium Potassium Chloride Carbon Dioxide BUN Creatinine Glucose POC Glucose 134 H 117 H 129 H Lactic Acid Calcium Ionized Calcium Phosphorus Magnesium Total Bilirubin AST ALT Alkaline Phosphatase Ammonia Total Creatine Kinase CK-MB (CK-2) CK-MB (CK-2) Rel Index Total Protein Albumin Urine WBC (Auto) Vancomycin Trough Salicylates Acetaminophen Plasma/Serum Alcohol Crossmatch 01/23/20 01/23/20 01/23/20 16:58 21:17 23:47 WBC RBC Hgb Hct MCH RDW Plt Count Lymph % (Auto) [place] % (Auto) [place] # Baso # Seg Neutrophils % Seg Neuts % (Manual) Lymphocytes % (Manual) Monocytes % (Manual) Seg Neutrophils # Seg Neutrophils # Man Lymphocytes # (Manual) Monocytes # (Manual) Eosinophils # (Manual) Basophils # (Manual) PT INR APTT ABG pH ABG pO2 ABG HCO3 ABG O2 Saturation ABG Base Excess ABG Hemoglobin Oxyhemoglobin Sodium Potassium Chloride Carbon Dioxide BUN Creatinine Glucose POC Glucose 156 H 185 H 156 H Lactic Acid Calcium Ionized Calcium Phosphorus Magnesium Total Bilirubin AST ALT Alkaline Phosphatase Ammonia Total Creatine Kinase CK-MB (CK-2) CK-MB (CK-2) Rel Index Total Protein Albumin Urine WBC (Auto) Vancomycin Trough Salicylates Acetaminophen Plasma/Serum Alcohol Crossmatch 01/24/20 01/24/20 01/24/20 04:47 04:47 05:59 WBC 17.8 H RBC 3.60 L Hgb Hct MCH RDW 16.2 H Plt Count 688 H Lymph % (Auto) 11.8 L [place] % (Auto) 7.5 H [place] # 1.3 H Baso # Seg Neutrophils % 79.9 H Seg Neuts % (Manual) Lymphocytes % (Manual) Monocytes % (Manual) Seg Neutrophils # 14.2 H Seg Neutrophils # Man Lymphocytes # (Manual) Monocytes # (Manual) Eosinophils # (Manual) Basophils # (Manual) PT INR APTT ABG pH ABG pO2 ABG HCO3 ABG O2 Saturation ABG Base Excess ABG Hemoglobin Oxyhemoglobin Sodium 131 L Potassium Chloride 91.2 L Carbon Dioxide BUN 22 H Creatinine 0.3 L Glucose 123 H POC Glucose 147 H Lactic Acid Calcium 10.9 H Ionized Calcium Phosphorus Magnesium Total Bilirubin AST ALT Alkaline Phosphatase Ammonia Total Creatine Kinase CK-MB (CK-2) CK-MB (CK-2) Rel Index Total Protein Albumin Urine WBC (Auto) Vancomycin Trough Salicylates Acetaminophen Plasma/Serum Alcohol Crossmatch 01/24/20 01/24/20 01/25/20 11:47 16:45 00:18 WBC RBC Hgb Hct MCH RDW Plt Count Lymph % (Auto) [place] % (Auto) [place] # Baso # Seg Neutrophils % Seg Neuts % (Manual) Lymphocytes % (Manual) Monocytes % (Manual) Seg Neutrophils # Seg Neutrophils # Man Lymphocytes # (Manual) Monocytes # (Manual) Eosinophils # (Manual) Basophils # (Manual) PT INR APTT ABG pH ABG pO2 ABG HCO3 ABG O2 Saturation ABG Base Excess ABG Hemoglobin Oxyhemoglobin Sodium Potassium Chloride Carbon Dioxide BUN Creatinine Glucose POC Glucose 114 H 108 H 119 H Lactic Acid Calcium Ionized Calcium Phosphorus Magnesium Total Bilirubin AST ALT Alkaline Phosphatase Ammonia Total Creatine Kinase CK-MB (CK-2) CK-MB (CK-2) Rel Index Total Protein Albumin Urine WBC (Auto) Vancomycin Trough Salicylates Acetaminophen Plasma/Serum Alcohol Crossmatch 01/25/20 01/25/2020 07:18 11:58 16:56 WBC RBC Hgb Hct MCH RDW Plt Count Lymph % (Auto) [place] % (Auto) [place] # Baso # Seg Neutrophils % Seg Neuts % (Manual) Lymphocytes % (Manual) Monocytes % (Manual) Seg Neutrophils # Seg Neutrophils # Man Lymphocytes # (Manual) Monocytes # (Manual) Eosinophils # (Manual) Basophils # (Manual) PT INR APTT ABG pH ABG pO2 ABG HCO3 ABG O2 Saturation ABG Base Excess ABG Hemoglobin Oxyhemoglobin Sodium Potassium Chloride Carbon Dioxide BUN Creatinine Glucose POC Glucose 136 H 136 H 147 H Lactic Acid Calcium Ionized Calcium Phosphorus Magnesium Total Bilirubin AST ALT Alkaline Phosphatase Ammonia Total Creatine Kinase CK-MB (CK-2) CK-MB (CK-2) Rel Index Total Protein Albumin Urine WBC (Auto) Vancomycin Trough Salicylates Acetaminophen Plasma/Serum Alcohol Crossmatch 01/26/20 01/26/20 01/26/20 00:29 05:59 05:59 WBC 12.8 H RBC Hgb Hct MCH RDW 16.4 H Plt Count 743 H Lymph % (Auto) [place] % (Auto) [place] # 0.9 H Baso # Seg Neutrophils % 76.2 H Seg Neuts % (Manual) Lymphocytes % (Manual) Monocytes % (Manual) Seg Neutrophils # 9.8 H Seg Neutrophils # Man Lymphocytes # (Manual) Monocytes # (Manual) Eosinophils # (Manual) Basophils # (Manual) PT INR APTT ABG pH ABG pO2 ABG HCO3 ABG O2 Saturation ABG Base Excess ABG Hemoglobin Oxyhemoglobin Sodium 132 L Potassium Chloride 90.9 L Carbon Dioxide BUN 23 H Creatinine 0.4 L Glucose 122 H POC Glucose 107 H Lactic Acid Calcium 11.0 H Ionized Calcium Phosphorus Magnesium Total Bilirubin AST ALT Alkaline Phosphatase Ammonia Total Creatine Kinase CK-MB (CK-2) CK-MB (CK-2) Rel Index Total Protein Albumin Urine WBC (Auto) Vancomycin Trough Salicylates Acetaminophen Plasma/Serum Alcohol Crossmatch 01/26/20 01/26/20 01/26/20 06:27 12:06 16:49 WBC RBC Hgb Hct MCH RDW Plt Count Lymph % (Auto) [place] % (Auto) [place] # Baso # Seg Neutrophils % Seg Neuts % (Manual) Lymphocytes % (Manual) Monocytes % (Manual) Seg Neutrophils # Seg Neutrophils # Man Lymphocytes # (Manual) Monocytes # (Manual) Eosinophils # (Manual) Basophils # (Manual) PT INR APTT ABG pH ABG pO2 ABG HCO3 ABG O2 Saturation ABG Base Excess ABG Hemoglobin Oxyhemoglobin Sodium Potassium Chloride Carbon Dioxide BUN Creatinine Glucose POC Glucose 132 H 132 H 110 H Lactic Acid Calcium Ionized Calcium Phosphorus Magnesium Total Bilirubin AST ALT Alkaline Phosphatase Ammonia Total Creatine Kinase CK-MB (CK-2) CK-MB (CK-2) Rel Index Total Protein Albumin Urine WBC (Auto) Vancomycin Trough Salicylates Acetaminophen Plasma/Serum Alcohol Crossmatch 01/27/20 01/27/20 01/27/20 00:08 11:49 16:24 WBC RBC Hgb Hct MCH RDW Plt Count Lymph % (Auto) [place] % (Auto) [place] # Baso # Seg Neutrophils % Seg Neuts % (Manual) Lymphocytes % (Manual) Monocytes % (Manual) Seg Neutrophils # Seg Neutrophils # Man Lymphocytes # (Manual) Monocytes # (Manual) Eosinophils # (Manual) Basophils # (Manual) PT INR APTT ABG pH ABG pO2 ABG HCO3 ABG O2 Saturation ABG Base Excess ABG Hemoglobin Oxyhemoglobin Sodium Potassium Chloride Carbon Dioxide BUN Creatinine Glucose POC Glucose 107 H 119 H 129 H Lactic Acid Calcium Ionized Calcium Phosphorus Magnesium Total Bilirubin AST ALT Alkaline Phosphatase Ammonia Total Creatine Kinase CK-MB (CK-2) CK-MB (CK-2) Rel Index Total Protein Albumin Urine WBC (Auto) Vancomycin Trough Salicylates Acetaminophen Plasma/Serum Alcohol Crossmatch 01/27/20 01/28/20 01/28/20 18:28 01:00 06:22 WBC RBC Hgb Hct MCH RDW Plt Count Lymph % (Auto) [place] % (Auto) [place] # Baso # Seg Neutrophils % Seg Neuts % (Manual) Lymphocytes % (Manual) Monocytes % (Manual) Seg Neutrophils # Seg Neutrophils # Man Lymphocytes # (Manual) Monocytes # (Manual) Eosinophils # (Manual) Basophils # (Manual) PT INR APTT ABG pH ABG pO2 ABG HCO3 ABG O2 Saturation ABG Base Excess ABG Hemoglobin Oxyhemoglobin Sodium Potassium Chloride Carbon Dioxide BUN Creatinine Glucose POC Glucose 126 H 121 H 114 H Lactic Acid Calcium Ionized Calcium Phosphorus Magnesium Total Bilirubin AST ALT Alkaline Phosphatase Ammonia Total Creatine Kinase CK-MB (CK-2) CK-MB (CK-2) Rel Index Total Protein Albumin Urine WBC (Auto) Vancomycin Trough Salicylates Acetaminophen Plasma/Serum Alcohol Crossmatch 01/28/20 01/28/20 01/29/20 11:47 18:00 00:05 WBC RBC Hgb Hct MCH RDW Plt Count Lymph % (Auto) [place] % (Auto) [place] # Baso # Seg Neutrophils % Seg Neuts % (Manual) Lymphocytes % (Manual) Monocytes % (Manual) Seg Neutrophils # Seg Neutrophils # Man Lymphocytes # (Manual) Monocytes # (Manual) Eosinophils # (Manual) Basophils # (Manual) PT INR APTT ABG pH ABG pO2 ABG HCO3 ABG O2 Saturation ABG Base Excess ABG Hemoglobin Oxyhemoglobin Sodium Potassium Chloride Carbon Dioxide BUN Creatinine Glucose POC Glucose 106 H 117 H 127 H Lactic Acid Calcium Ionized Calcium Phosphorus Magnesium Total Bilirubin AST ALT Alkaline Phosphatase Ammonia Total Creatine Kinase CK-MB (CK-2) CK-MB (CK-2) Rel Index Total Protein Albumin Urine WBC (Auto) Vancomycin Trough Salicylates Acetaminophen Plasma/Serum Alcohol Crossmatch 01/29/20 01/29/20 01/29/20 06:04 11:40 16:38 WBC RBC Hgb Hct MCH RDW Plt Count Lymph % (Auto) [place] % (Auto) [place] # Baso # Seg Neutrophils % Seg Neuts % (Manual) Lymphocytes % (Manual) Monocytes % (Manual) Seg Neutrophils # Seg Neutrophils # Man Lymphocytes # (Manual) Monocytes # (Manual) Eosinophils # (Manual) Basophils # (Manual) PT INR APTT ABG pH ABG pO2 ABG HCO3 ABG O2 Saturation ABG Base Excess ABG Hemoglobin Oxyhemoglobin Sodium Potassium Chloride Carbon Dioxide BUN Creatinine Glucose POC Glucose 147 H 139 H 143 H Lactic Acid Calcium Ionized Calcium Phosphorus Magnesium Total Bilirubin AST ALT Alkaline Phosphatase Ammonia Total Creatine Kinase CK-MB (CK-2) CK-MB (CK-2) Rel Index Total Protein Albumin Urine WBC (Auto) Vancomycin Trough Salicylates Acetaminophen Plasma/Serum Alcohol Crossmatch 01/29/20 01/30/20 01/30/20 23:46 06:43 12:07 WBC RBC Hgb Hct MCH RDW Plt Count Lymph % (Auto) [place] % (Auto) [place] # Baso # Seg Neutrophils % Seg Neuts % (Manual) Lymphocytes % (Manual) Monocytes % (Manual) Seg Neutrophils # Seg Neutrophils # Man Lymphocytes # (Manual) Monocytes # (Manual) Eosinophils # (Manual) Basophils # (Manual) PT INR APTT ABG pH ABG pO2 ABG HCO3 ABG O2 Saturation ABG Base Excess ABG Hemoglobin Oxyhemoglobin Sodium Potassium Chloride Carbon Dioxide BUN Creatinine Glucose POC Glucose 122 H 122 H 134 H Lactic Acid Calcium Ionized Calcium Phosphorus Magnesium Total Bilirubin AST ALT Alkaline Phosphatase Ammonia Total Creatine Kinase CK-MB (CK-2) CK-MB (CK-2) Rel Index Total Protein Albumin Urine WBC (Auto) Vancomycin Trough Salicylates Acetaminophen Plasma/Serum Alcohol Crossmatch 01/30/20 01/31/20 01/31/20 17:59 00:52 05:54 WBC RBC Hgb Hct MCH RDW Plt Count Lymph % (Auto) [place] % (Auto) [place] # Baso # Seg Neutrophils % Seg Neuts % (Manual) Lymphocytes % (Manual) Monocytes % (Manual) Seg Neutrophils # Seg Neutrophils # Man Lymphocytes # (Manual) Monocytes # (Manual) Eosinophils # (Manual) Basophils # (Manual) PT INR APTT ABG pH ABG pO2 ABG HCO3 ABG O2 Saturation ABG Base Excess ABG Hemoglobin Oxyhemoglobin Sodium Potassium Chloride Carbon Dioxide BUN Creatinine Glucose POC Glucose 116 H 127 H 127 H Lactic Acid Calcium Ionized Calcium Phosphorus Magnesium Total Bilirubin AST ALT Alkaline Phosphatase Ammonia Total Creatine Kinase CK-MB (CK-2) CK-MB (CK-2) Rel Index Total Protein Albumin Urine WBC (Auto) Vancomycin Trough Salicylates Acetaminophen Plasma/Serum Alcohol Crossmatch 01/31/20 02/01/20 02/01/20 12:20 00:48 12:21 WBC RBC Hgb Hct MCH RDW Plt Count Lymph % (Auto) [place] % (Auto) [place] # Baso # Seg Neutrophils % Seg Neuts % (Manual) Lymphocytes % (Manual) Monocytes % (Manual) Seg Neutrophils # Seg Neutrophils # Man Lymphocytes # (Manual) Monocytes # (Manual) Eosinophils # (Manual) Basophils # (Manual) PT INR APTT ABG pH ABG pO2 ABG HCO3 ABG O2 Saturation ABG Base Excess ABG Hemoglobin Oxyhemoglobin Sodium Potassium Chloride Carbon Dioxide BUN Creatinine Glucose POC Glucose 126 H 154 H 123 H Lactic Acid Calcium Ionized Calcium Phosphorus Magnesium Total Bilirubin AST ALT Alkaline Phosphatase Ammonia Total Creatine Kinase CK-MB (CK-2) CK-MB (CK-2) Rel Index Total Protein Albumin Urine WBC (Auto) Vancomycin Trough Salicylates Acetaminophen Plasma/Serum Alcohol Crossmatch 02/01/20 02/02/20 02/02/20 23:58 06:08 11:50 WBC RBC Hgb Hct MCH RDW Plt Count Lymph % (Auto) [place] % (Auto) [place] # Baso # Seg Neutrophils % Seg Neuts % (Manual) Lymphocytes % (Manual) Monocytes % (Manual) Seg Neutrophils # Seg Neutrophils # Man Lymphocytes # (Manual) Monocytes # (Manual) Eosinophils # (Manual) Basophils # (Manual) PT INR APTT ABG pH ABG pO2 ABG HCO3 ABG O2 Saturation ABG Base Excess ABG Hemoglobin Oxyhemoglobin Sodium Potassium Chloride Carbon Dioxide BUN Creatinine Glucose POC Glucose 125 H 144 H 131 H Lactic Acid Calcium Ionized Calcium Phosphorus Magnesium Total Bilirubin AST ALT Alkaline Phosphatase Ammonia Total Creatine Kinase CK-MB (CK-2) CK-MB (CK-2) Rel Index Total Protein Albumin Urine WBC (Auto) Vancomycin Trough Salicylates Acetaminophen Plasma/Serum Alcohol Crossmatch 02/02/20 02/03/20 02/03/20 17:53 00:14 05:47 WBC RBC Hgb Hct MCH RDW Plt Count Lymph % (Auto) [place] % (Auto) [place] # Baso # Seg Neutrophils % Seg Neuts % (Manual) Lymphocytes % (Manual) Monocytes % (Manual) Seg Neutrophils # Seg Neutrophils # Man Lymphocytes # (Manual) Monocytes # (Manual) Eosinophils # (Manual) Basophils # (Manual) PT INR APTT ABG pH ABG pO2 ABG HCO3 ABG O2 Saturation ABG Base Excess ABG Hemoglobin Oxyhemoglobin Sodium Potassium Chloride Carbon Dioxide BUN Creatinine Glucose POC Glucose 108 H 122 H 118 H Lactic Acid Calcium Ionized Calcium Phosphorus Magnesium Total Bilirubin AST ALT Alkaline Phosphatase Ammonia Total Creatine Kinase CK-MB (CK-2) CK-MB (CK-2) Rel Index Total Protein Albumin Urine WBC (Auto) Vancomycin Trough Salicylates Acetaminophen Plasma/Serum Alcohol Crossmatch 02/03/20 02/03/20 02/03/20 05:59 05:59 11:49 WBC RBC 3.48 L Hgb Hct 29.9 L MCH RDW 16.2 H Plt Count 707 H Lymph % (Auto) [place] % (Auto) 9.3 H [place] # 0.9 H Baso # Seg Neutrophils % Seg Neuts % (Manual) Lymphocytes % (Manual) Monocytes % (Manual) Seg Neutrophils # Seg Neutrophils # Man Lymphocytes # (Manual) Monocytes # (Manual) Eosinophils # (Manual) Basophils # (Manual) PT INR APTT ABG pH ABG pO2 ABG HCO3 ABG O2 Saturation ABG Base Excess ABG Hemoglobin Oxyhemoglobin Sodium 136 L Potassium Chloride 93.4 L Carbon Dioxide BUN 20 H Creatinine 0.5 L Glucose 101 H POC Glucose 133 H Lactic Acid Calcium 10.8 H Ionized Calcium Phosphorus Magnesium Total Bilirubin AST ALT Alkaline Phosphatase Ammonia Total Creatine Kinase CK-MB (CK-2) CK-MB (CK-2) Rel Index Total Protein Albumin Urine WBC (Auto) Vancomycin Trough Salicylates Acetaminophen Plasma/Serum Alcohol Crossmatch 02/03/20 02/04/20 02/04/20 23:19 05:37 23:56 WBC RBC Hgb Hct MCH RDW Plt Count Lymph % (Auto) [place] % (Auto) [place] # Baso # Seg Neutrophils % Seg Neuts % (Manual) Lymphocytes % (Manual) Monocytes % (Manual) Seg Neutrophils # Seg Neutrophils # Man Lymphocytes # (Manual) Monocytes # (Manual) Eosinophils # (Manual) Basophils # (Manual) PT INR APTT ABG pH ABG pO2 ABG HCO3 ABG O2 Saturation ABG Base Excess ABG Hemoglobin Oxyhemoglobin Sodium Potassium Chloride Carbon Dioxide BUN Creatinine Glucose POC Glucose 135 H 108 H 158 H Lactic Acid Calcium Ionized Calcium Phosphorus Magnesium Total Bilirubin AST ALT Alkaline Phosphatase Ammonia Total Creatine Kinase CK-MB (CK-2) CK-MB (CK-2) Rel Index Total Protein Albumin Urine WBC (Auto) Vancomycin Trough Salicylates Acetaminophen Plasma/Serum Alcohol Crossmatch 02/05/20 02/05/20 02/06/20 05:33 23:24 05:50 WBC RBC Hgb Hct MCH RDW Plt Count Lymph % (Auto) [place] % (Auto) [place] # Baso # Seg Neutrophils % Seg Neuts % (Manual) Lymphocytes % (Manual) Monocytes % (Manual) Seg Neutrophils # Seg Neutrophils # Man Lymphocytes # (Manual) Monocytes # (Manual) Eosinophils # (Manual) Basophils # (Manual) PT INR APTT ABG pH ABG pO2 ABG HCO3 ABG O2 Saturation ABG Base Excess ABG Hemoglobin Oxyhemoglobin Sodium Potassium Chloride Carbon Dioxide BUN Creatinine Glucose POC Glucose 152 H 158 H 110 H Lactic Acid Calcium Ionized Calcium Phosphorus Magnesium Total Bilirubin AST ALT Alkaline Phosphatase Ammonia Total Creatine Kinase CK-MB (CK-2) CK-MB (CK-2) Rel Index Total Protein Albumin Urine WBC (Auto) Vancomycin Trough Salicylates Acetaminophen Plasma/Serum Alcohol Crossmatch 02/06/20 02/07/20 02/07/20 16:03 00:13 05:27 WBC RBC Hgb Hct MCH RDW Plt Count Lymph % (Auto) [place] % (Auto) [place] # Baso # Seg Neutrophils % Seg Neuts % (Manual) Lymphocytes % (Manual) Monocytes % (Manual) Seg Neutrophils # Seg Neutrophils # Man Lymphocytes # (Manual) Monocytes # (Manual) Eosinophils # (Manual) Basophils # (Manual) PT INR APTT ABG pH ABG pO2 ABG HCO3 ABG O2 Saturation ABG Base Excess ABG Hemoglobin Oxyhemoglobin Sodium Potassium Chloride Carbon Dioxide BUN Creatinine Glucose POC Glucose 130 H 115 H 115 H Lactic Acid Calcium Ionized Calcium Phosphorus Magnesium Total Bilirubin AST ALT Alkaline Phosphatase Ammonia Total Creatine Kinase CK-MB (CK-2) CK-MB (CK-2) Rel Index Total Protein Albumin Urine WBC (Auto) Vancomycin Trough Salicylates Acetaminophen Plasma/Serum Alcohol Crossmatch 02/07/20 02/07/20 02/08/20 11:42 17:23 00:37 WBC RBC Hgb Hct MCH RDW Plt Count Lymph % (Auto) [place] % (Auto) [place] # Baso # Seg Neutrophils % Seg Neuts % (Manual) Lymphocytes % (Manual) Monocytes % (Manual) Seg Neutrophils # Seg Neutrophils # Man Lymphocytes # (Manual) Monocytes # (Manual) Eosinophils # (Manual) Basophils # (Manual) PT INR APTT ABG pH ABG pO2 ABG HCO3 ABG O2 Saturation ABG Base Excess ABG Hemoglobin Oxyhemoglobin Sodium Potassium Chloride Carbon Dioxide BUN Creatinine Glucose POC Glucose 113 H 114 H 136 H Lactic Acid Calcium Ionized Calcium Phosphorus Magnesium Total Bilirubin AST ALT Alkaline Phosphatase Ammonia Total Creatine Kinase CK-MB (CK-2) CK-MB (CK-2) Rel Index Total Protein Albumin Urine WBC (Auto) Vancomycin Trough Salicylates Acetaminophen Plasma/Serum Alcohol Crossmatch 02/08/20 02/08/20 02/08/20 08:52 11:42 17:02 WBC RBC Hgb Hct MCH RDW Plt Count Lymph % (Auto) [place] % (Auto) [place] # Baso # Seg Neutrophils % Seg Neuts % (Manual) Lymphocytes % (Manual) Monocytes % (Manual) Seg Neutrophils # Seg Neutrophils # Man Lymphocytes # (Manual) Monocytes # (Manual) Eosinophils # (Manual) Basophils # (Manual) PT INR APTT ABG pH ABG pO2 ABG HCO3 ABG O2 Saturation ABG Base Excess ABG Hemoglobin Oxyhemoglobin Sodium 136 L Potassium Chloride 95.7 L Carbon Dioxide BUN 21 H Creatinine 0.4 L Glucose POC Glucose 128 H 145 H Lactic Acid Calcium 10.4 H Ionized Calcium Phosphorus Magnesium Total Bilirubin AST ALT Alkaline Phosphatase Ammonia Total Creatine Kinase CK-MB (CK-2) CK-MB (CK-2) Rel Index Total Protein Albumin Urine WBC (Auto) Vancomycin Trough Salicylates Acetaminophen Plasma/Serum Alcohol Crossmatch 02/09/20 02/09/20 02/09/20 01:05 11:52 16:19 WBC RBC Hgb Hct MCH RDW Plt Count Lymph % (Auto) [place] % (Auto) [place] # Baso # Seg Neutrophils % Seg Neuts % (Manual) Lymphocytes % (Manual) Monocytes % (Manual) Seg Neutrophils # Seg Neutrophils # Man Lymphocytes # (Manual) Monocytes # (Manual) Eosinophils # (Manual) Basophils # (Manual) PT INR APTT ABG pH ABG pO2 ABG HCO3 ABG O2 Saturation ABG Base Excess ABG Hemoglobin Oxyhemoglobin Sodium Potassium Chloride Carbon Dioxide BUN Creatinine Glucose POC Glucose 117 H 141 H 113 H Lactic Acid Calcium Ionized Calcium Phosphorus Magnesium Total Bilirubin AST ALT Alkaline Phosphatase Ammonia Total Creatine Kinase CK-MB (CK-2) CK-MB (CK-2) Rel Index Total Protein Albumin Urine WBC (Auto) Vancomycin Trough Salicylates Acetaminophen Plasma/Serum Alcohol Crossmatch 02/10/20 02/10/20 02/10/20 05:25 12:50 17:08 WBC RBC Hgb Hct MCH RDW Plt Count Lymph % (Auto) [place] % (Auto) [place] # Baso # Seg Neutrophils % Seg Neuts % (Manual) Lymphocytes % (Manual) Monocytes % (Manual) Seg Neutrophils # Seg Neutrophils # Man Lymphocytes # (Manual) Monocytes # (Manual) Eosinophils # (Manual) Basophils # (Manual) PT INR APTT ABG pH ABG pO2 ABG HCO3 ABG O2 Saturation ABG Base Excess ABG Hemoglobin Oxyhemoglobin Sodium Potassium Chloride Carbon Dioxide BUN Creatinine Glucose POC Glucose 136 H 127 H 111 H Lactic Acid Calcium Ionized Calcium Phosphorus Magnesium Total Bilirubin AST ALT Alkaline Phosphatase Ammonia Total Creatine Kinase CK-MB (CK-2) CK-MB (CK-2) Rel Index Total Protein Albumin Urine WBC (Auto) Vancomycin Trough Salicylates Acetaminophen Plasma/Serum Alcohol Crossmatch 02/10/20 02/11/20 02/11/20 23:55 06:11 12:07 WBC RBC Hgb Hct MCH RDW Plt Count Lymph % (Auto) [place] % (Auto) [place] # Baso # Seg Neutrophils % Seg Neuts % (Manual) Lymphocytes % (Manual) Monocytes % (Manual) Seg Neutrophils # Seg Neutrophils # Man Lymphocytes # (Manual) Monocytes # (Manual) Eosinophils # (Manual) Basophils # (Manual) PT INR APTT ABG pH ABG pO2 ABG HCO3 ABG O2 Saturation ABG Base Excess ABG Hemoglobin Oxyhemoglobin Sodium Potassium Chloride Carbon Dioxide BUN Creatinine Glucose POC Glucose 129 H 128 H 141 H Lactic Acid Calcium Ionized Calcium Phosphorus Magnesium Total Bilirubin AST ALT Alkaline Phosphatase Ammonia Total Creatine Kinase CK-MB (CK-2) CK-MB (CK-2) Rel Index Total Protein Albumin Urine WBC (Auto) Vancomycin Trough Salicylates Acetaminophen Plasma/Serum Alcohol Crossmatch 02/11/20 02/12/20 02/13/20 18:22 02:39 06:45 WBC RBC Hgb Hct MCH RDW Plt Count Lymph % (Auto) [place] % (Auto) [place] # Baso # Seg Neutrophils % Seg Neuts % (Manual) Lymphocytes % (Manual) Monocytes % (Manual) Seg Neutrophils # Seg Neutrophils # Man Lymphocytes # (Manual) Monocytes # (Manual) Eosinophils # (Manual) Basophils # (Manual) PT INR APTT ABG pH ABG pO2 ABG HCO3 ABG O2 Saturation ABG Base Excess ABG Hemoglobin Oxyhemoglobin Sodium Potassium Chloride Carbon Dioxide BUN Creatinine Glucose POC Glucose 118 H 107 H 124 H Lactic Acid Calcium Ionized Calcium Phosphorus Magnesium Total Bilirubin AST ALT Alkaline Phosphatase Ammonia Total Creatine Kinase CK-MB (CK-2) CK-MB (CK-2) Rel Index Total Protein Albumin Urine WBC (Auto) Vancomycin Trough Salicylates Acetaminophen Plasma/Serum Alcohol Crossmatch 02/13/20 02/13/20 02/14/20 12:26 18:19 00:21 WBC RBC Hgb Hct MCH RDW Plt Count Lymph % (Auto) [place] % (Auto) [place] # Baso # Seg Neutrophils % Seg Neuts % (Manual) Lymphocytes % (Manual) Monocytes % (Manual) Seg Neutrophils # Seg Neutrophils # Man Lymphocytes # (Manual) Monocytes # (Manual) Eosinophils # (Manual) Basophils # (Manual) PT INR APTT ABG pH ABG pO2 ABG HCO3 ABG O2 Saturation ABG Base Excess ABG Hemoglobin Oxyhemoglobin Sodium Potassium Chloride Carbon Dioxide BUN Creatinine Glucose POC Glucose 124 H 118 H 130 H Lactic Acid Calcium Ionized Calcium Phosphorus Magnesium Total Bilirubin AST ALT Alkaline Phosphatase Ammonia Total Creatine Kinase CK-MB (CK-2) CK-MB (CK-2) Rel Index Total Protein Albumin Urine WBC (Auto) Vancomycin Trough Salicylates Acetaminophen Plasma/Serum Alcohol Crossmatch 02/14/20 02/14/20 02/16/20 11:19 16:16 00:58 WBC RBC Hgb Hct MCH RDW Plt Count Lymph % (Auto) [place] % (Auto) [place] # Baso # Seg Neutrophils % Seg Neuts % (Manual) Lymphocytes % (Manual) Monocytes % (Manual) Seg Neutrophils # Seg Neutrophils # Man Lymphocytes # (Manual) Monocytes # (Manual) Eosinophils # (Manual) Basophils # (Manual) PT INR APTT ABG pH ABG pO2 ABG HCO3 ABG O2 Saturation ABG Base Excess ABG Hemoglobin Oxyhemoglobin Sodium Potassium Chloride Carbon Dioxide BUN Creatinine Glucose POC Glucose 135 H 119 H 121 H Lactic Acid Calcium Ionized Calcium Phosphorus Magnesium Total Bilirubin AST ALT Alkaline Phosphatase Ammonia Total Creatine Kinase CK-MB (CK-2) CK-MB (CK-2) Rel Index Total Protein Albumin Urine WBC (Auto) Vancomycin Trough Salicylates Acetaminophen Plasma/Serum Alcohol Crossmatch 02/16/20 02/16/20 02/16/20 12:12 18:22 23:51 WBC RBC Hgb Hct MCH RDW Plt Count Lymph % (Auto) [place] % (Auto) [place] # Baso # Seg Neutrophils % Seg Neuts % (Manual) Lymphocytes % (Manual) Monocytes % (Manual) Seg Neutrophils # Seg Neutrophils # Man Lymphocytes # (Manual) Monocytes # (Manual) Eosinophils # (Manual) Basophils # (Manual) PT INR APTT ABG pH ABG pO2 ABG HCO3 ABG O2 Saturation ABG Base Excess ABG Hemoglobin Oxyhemoglobin Sodium Potassium Chloride Carbon Dioxide BUN Creatinine Glucose POC Glucose 107 H 106 H 128 H Lactic Acid Calcium Ionized Calcium Phosphorus Magnesium Total Bilirubin AST ALT Alkaline Phosphatase Ammonia Total Creatine Kinase CK-MB (CK-2) CK-MB (CK-2) Rel Index Total Protein Albumin Urine WBC (Auto) Vancomycin Trough Salicylates Acetaminophen Plasma/Serum Alcohol Crossmatch 02/17/20 02/17/20 02/17/20 05:50 07:57 07:57 WBC 12.6 H RBC 3.52 L Hgb Hct MCH RDW 15.3 H Plt Count 643 H Lymph % (Auto) [place] % (Auto) 8.0 H [place] # 1.0 H Baso # Seg Neutrophils % Seg Neuts % (Manual) Lymphocytes % (Manual) Monocytes % (Manual) Seg Neutrophils # 8.5 H Seg Neutrophils # Man Lymphocytes # (Manual) Monocytes # (Manual) Eosinophils # (Manual) Basophils # (Manual) PT INR APTT ABG pH ABG pO2 ABG HCO3 ABG O2 Saturation ABG Base Excess ABG Hemoglobin Oxyhemoglobin Sodium Potassium Chloride 96.9 L Carbon Dioxide BUN 21 H Creatinine 0.4 L Glucose 113 H POC Glucose 116 H Lactic Acid Calcium 10.5 H Ionized Calcium Phosphorus Magnesium Total Bilirubin AST ALT Alkaline Phosphatase Ammonia Total Creatine Kinase CK-MB (CK-2) CK-MB (CK-2) Rel Index Total Protein Albumin Urine WBC (Auto) Vancomycin Trough Salicylates Acetaminophen Plasma/Serum Alcohol Crossmatch 02/17/20 02/17/20 02/18/20 12:05 18:16 00:13 WBC RBC Hgb Hct MCH RDW Plt Count Lymph % (Auto) [place] % (Auto) [place] # Baso # Seg Neutrophils % Seg Neuts % (Manual) Lymphocytes % (Manual) Monocytes % (Manual) Seg Neutrophils # Seg Neutrophils # Man Lymphocytes # (Manual) Monocytes # (Manual) Eosinophils # (Manual) Basophils # (Manual) PT INR APTT ABG pH ABG pO2 ABG HCO3 ABG O2 Saturation ABG Base Excess ABG Hemoglobin Oxyhemoglobin Sodium Potassium Chloride Carbon Dioxide BUN Creatinine Glucose POC Glucose 139 H 127 H 144 H Lactic Acid Calcium Ionized Calcium Phosphorus Magnesium Total Bilirubin AST ALT Alkaline Phosphatase Ammonia Total Creatine Kinase CK-MB (CK-2) CK-MB (CK-2) Rel Index Total Protein Albumin Urine WBC (Auto) Vancomycin Trough Salicylates Acetaminophen Plasma/Serum Alcohol Crossmatch 02/18/20 02/18/20 02/19/20 17:41 23:28 05:17 WBC RBC Hgb Hct MCH RDW Plt Count Lymph % (Auto) [place] % (Auto) [place] # Baso # Seg Neutrophils % Seg Neuts % (Manual) Lymphocytes % (Manual) Monocytes % (Manual) Seg Neutrophils # Seg Neutrophils # Man Lymphocytes # (Manual) Monocytes # (Manual) Eosinophils # (Manual) Basophils # (Manual) PT INR APTT ABG pH ABG pO2 ABG HCO3 ABG O2 Saturation ABG Base Excess ABG Hemoglobin Oxyhemoglobin Sodium Potassium Chloride Carbon Dioxide BUN Creatinine Glucose POC Glucose 118 H 166 H 116 H Lactic Acid Calcium Ionized Calcium Phosphorus Magnesium Total Bilirubin AST ALT Alkaline Phosphatase Ammonia Total Creatine Kinase CK-MB (CK-2) CK-MB (CK-2) Rel Index Total Protein Albumin Urine WBC (Auto) Vancomycin Trough Salicylates Acetaminophen Plasma/Serum Alcohol Crossmatch 02/19/20 02/19/20 02/20/20 12:33 17:02 00:12 WBC RBC Hgb Hct MCH RDW Plt Count Lymph % (Auto) [place] % (Auto) [place] # Baso # Seg Neutrophils % Seg Neuts % (Manual) Lymphocytes % (Manual) Monocytes % (Manual) Seg Neutrophils # Seg Neutrophils # Man Lymphocytes # (Manual) Monocytes # (Manual) Eosinophils # (Manual) Basophils # (Manual) PT INR APTT ABG pH ABG pO2 ABG HCO3 ABG O2 Saturation ABG Base Excess ABG Hemoglobin Oxyhemoglobin Sodium Potassium Chloride Carbon Dioxide BUN Creatinine Glucose POC Glucose 115 H 108 H 153 H Lactic Acid Calcium Ionized Calcium Phosphorus Magnesium Total Bilirubin AST ALT Alkaline Phosphatase Ammonia Total Creatine Kinase CK-MB (CK-2) CK-MB (CK-2) Rel Index Total Protein Albumin Urine WBC (Auto) Vancomycin Trough Salicylates Acetaminophen Plasma/Serum Alcohol Crossmatch 02/20/20 02/20/20 02/21/20 12:00 23:13 05:07 WBC RBC Hgb Hct MCH RDW Plt Count Lymph % (Auto) [place] % (Auto) [place] # Baso # Seg Neutrophils % Seg Neuts % (Manual) Lymphocytes % (Manual) Monocytes % (Manual) Seg Neutrophils # Seg Neutrophils # Man Lymphocytes # (Manual) Monocytes # (Manual) Eosinophils # (Manual) Basophils # (Manual) PT INR APTT ABG pH ABG pO2 ABG HCO3 ABG O2 Saturation ABG Base Excess ABG Hemoglobin Oxyhemoglobin Sodium Potassium Chloride Carbon Dioxide BUN Creatinine Glucose POC Glucose 171 H 129 H 116 H Lactic Acid Calcium Ionized Calcium Phosphorus Magnesium Total Bilirubin AST ALT Alkaline Phosphatase Ammonia Total Creatine Kinase CK-MB (CK-2) CK-MB (CK-2) Rel Index Total Protein Albumin Urine WBC (Auto) Vancomycin Trough Salicylates Acetaminophen Plasma/Serum Alcohol Crossmatch 02/21/20 02/22/20 02/22/20 12:15 00:42 06:30 WBC RBC Hgb Hct MCH RDW Plt Count Lymph % (Auto) [place] % (Auto) [place] # Baso # Seg Neutrophils % Seg Neuts % (Manual) Lymphocytes % (Manual) Monocytes % (Manual) Seg Neutrophils # Seg Neutrophils # Man Lymphocytes # (Manual) Monocytes # (Manual) Eosinophils # (Manual) Basophils # (Manual) PT INR APTT ABG pH ABG pO2 ABG HCO3 ABG O2 Saturation ABG Base Excess ABG Hemoglobin Oxyhemoglobin Sodium Potassium Chloride Carbon Dioxide BUN Creatinine Glucose POC Glucose 124 H 142 H 117 H Lactic Acid Calcium Ionized Calcium Phosphorus Magnesium Total Bilirubin AST ALT Alkaline Phosphatase Ammonia Total Creatine Kinase CK-MB (CK-2) CK-MB (CK-2) Rel Index Total Protein Albumin Urine WBC (Auto) Vancomycin Trough Salicylates Acetaminophen Plasma/Serum Alcohol Crossmatch 02/22/20 02/22/20 02/23/20 12:20 17:55 12:46 WBC RBC Hgb Hct MCH RDW Plt Count Lymph % (Auto) [place] % (Auto) [place] # Baso # Seg Neutrophils % Seg Neuts % (Manual) Lymphocytes % (Manual) Monocytes % (Manual) Seg Neutrophils # Seg Neutrophils # Man Lymphocytes # (Manual) Monocytes # (Manual) Eosinophils # (Manual) Basophils # (Manual) PT INR APTT ABG pH ABG pO2 ABG HCO3 ABG O2 Saturation ABG Base Excess ABG Hemoglobin Oxyhemoglobin Sodium Potassium Chloride Carbon Dioxide BUN Creatinine Glucose POC Glucose 121 H 157 H 112 H Lactic Acid Calcium Ionized Calcium Phosphorus Magnesium Total Bilirubin AST ALT Alkaline Phosphatase Ammonia Total Creatine Kinase CK-MB (CK-2) CK-MB (CK-2) Rel Index Total Protein Albumin Urine WBC (Auto) Vancomycin Trough Salicylates Acetaminophen Plasma/Serum Alcohol Crossmatch 02/23/20 02/24/20 02/24/20 16:47 00:38 07:00 WBC RBC Hgb Hct MCH RDW Plt Count Lymph % (Auto) [place] % (Auto) [place] # Baso # Seg Neutrophils % Seg Neuts % (Manual) Lymphocytes % (Manual) Monocytes % (Manual) Seg Neutrophils # Seg Neutrophils # Man Lymphocytes # (Manual) Monocytes # (Manual) Eosinophils # (Manual) Basophils # (Manual) PT INR APTT ABG pH ABG pO2 ABG HCO3 ABG O2 Saturation ABG Base Excess ABG Hemoglobin Oxyhemoglobin Sodium Potassium Chloride Carbon Dioxide BUN Creatinine Glucose POC Glucose 142 H 138 H 118 H Lactic Acid Calcium Ionized Calcium Phosphorus Magnesium Total Bilirubin AST ALT Alkaline Phosphatase Ammonia Total Creatine Kinase CK-MB (CK-2) CK-MB (CK-2) Rel Index Total Protein Albumin Urine WBC (Auto) Vancomycin Trough Salicylates Acetaminophen Plasma/Serum Alcohol Crossmatch 02/24/20 02/24/20 02/25/20 11:41 18:33 18:24 WBC RBC Hgb Hct MCH RDW Plt Count Lymph % (Auto) [place] % (Auto) [place] # Baso # Seg Neutrophils % Seg Neuts % (Manual) Lymphocytes % (Manual) Monocytes % (Manual) Seg Neutrophils # Seg Neutrophils # Man Lymphocytes # (Manual) Monocytes # (Manual) Eosinophils # (Manual) Basophils # (Manual) PT INR APTT ABG pH ABG pO2 ABG HCO3 ABG O2 Saturation ABG Base Excess ABG Hemoglobin Oxyhemoglobin Sodium Potassium Chloride Carbon Dioxide BUN Creatinine Glucose POC Glucose 152 H 126 H 120 H Lactic Acid Calcium Ionized Calcium Phosphorus Magnesium Total Bilirubin AST ALT Alkaline Phosphatase Ammonia Total Creatine Kinase CK-MB (CK-2) CK-MB (CK-2) Rel Index Total Protein Albumin Urine WBC (Auto) Vancomycin Trough Salicylates Acetaminophen Plasma/Serum Alcohol Crossmatch 02/25/20 02/26/20 02/26/20 23:40 05:46 11:32 WBC RBC Hgb Hct MCH RDW Plt Count Lymph % (Auto) [place] % (Auto) [place] # Baso # Seg Neutrophils % Seg Neuts % (Manual) Lymphocytes % (Manual) Monocytes % (Manual) Seg Neutrophils # Seg Neutrophils # Man Lymphocytes # (Manual) Monocytes # (Manual) Eosinophils # (Manual) Basophils # (Manual) PT INR APTT ABG pH ABG pO2 ABG HCO3 ABG O2 Saturation ABG Base Excess ABG Hemoglobin Oxyhemoglobin Sodium Potassium Chloride Carbon Dioxide BUN Creatinine Glucose POC Glucose 114 H 113 H 106 H Lactic Acid Calcium Ionized Calcium Phosphorus Magnesium Total Bilirubin AST ALT Alkaline Phosphatase Ammonia Total Creatine Kinase CK-MB (CK-2) CK-MB (CK-2) Rel Index Total Protein Albumin Urine WBC (Auto) Vancomycin Trough Salicylates Acetaminophen Plasma/Serum Alcohol Crossmatch 02/26/20 02/27/20 02/27/20 16:14 11:53 17:54 WBC RBC Hgb Hct MCH RDW Plt Count Lymph % (Auto) [place] % (Auto) [place] # Baso # Seg Neutrophils % Seg Neuts % (Manual) Lymphocytes % (Manual) Monocytes % (Manual) Seg Neutrophils # Seg Neutrophils # Man Lymphocytes # (Manual) Monocytes # (Manual) Eosinophils # (Manual) Basophils # (Manual) PT INR APTT ABG pH ABG pO2 ABG HCO3 ABG O2 Saturation ABG Base Excess ABG Hemoglobin Oxyhemoglobin Sodium Potassium Chloride Carbon Dioxide BUN Creatinine Glucose POC Glucose 123 H 134 H 119 H Lactic Acid Calcium Ionized Calcium Phosphorus Magnesium Total Bilirubin AST ALT Alkaline Phosphatase Ammonia Total Creatine Kinase CK-MB (CK-2) CK-MB (CK-2) Rel Index Total Protein Albumin Urine WBC (Auto) Vancomycin Trough Salicylates Acetaminophen Plasma/Serum Alcohol Crossmatch 02/27/20 02/28/20 02/28/20 23:51 03:40 03:40 WBC RBC 3.58 L Hgb Hct MCH RDW Plt Count 575 H Lymph % (Auto) [place] % (Auto) 9.4 H [place] # 1.0 H Baso # Seg Neutrophils % Seg Neuts % (Manual) Lymphocytes % (Manual) Monocytes % (Manual) Seg Neutrophils # Seg Neutrophils # Man Lymphocytes # (Manual) Monocytes # (Manual) Eosinophils # (Manual) Basophils # (Manual) PT INR APTT ABG pH ABG pO2 ABG HCO3 ABG O2 Saturation ABG Base Excess ABG Hemoglobin Oxyhemoglobin Sodium Potassium Chloride Carbon Dioxide BUN 23 H Creatinine 0.5 L Glucose 114 H POC Glucose 138 H Lactic Acid Calcium Ionized Calcium Phosphorus Magnesium Total Bilirubin AST ALT Alkaline Phosphatase Ammonia Total Creatine Kinase CK-MB (CK-2) CK-MB (CK-2) Rel Index Total Protein Albumin Urine WBC (Auto) Vancomycin Trough Salicylates Acetaminophen Plasma/Serum Alcohol Crossmatch 02/28/20 02/28/20 02/29/20 12:37 18:38 05:50 WBC RBC Hgb Hct MCH RDW Plt Count Lymph % (Auto) [place] % (Auto) [place] # Baso # Seg Neutrophils % Seg Neuts % (Manual) Lymphocytes % (Manual) Monocytes % (Manual) Seg Neutrophils # Seg Neutrophils # Man Lymphocytes # (Manual) Monocytes # (Manual) Eosinophils # (Manual) Basophils # (Manual) PT INR APTT ABG pH ABG pO2 ABG HCO3 ABG O2 Saturation ABG Base Excess ABG Hemoglobin Oxyhemoglobin Sodium Potassium Chloride Carbon Dioxide BUN Creatinine Glucose POC Glucose 115 H 120 H 114 H Lactic Acid Calcium Ionized Calcium Phosphorus Magnesium Total Bilirubin AST ALT Alkaline Phosphatase Ammonia Total Creatine Kinase CK-MB (CK-2) CK-MB (CK-2) Rel Index Total Protein Albumin Urine WBC (Auto) Vancomycin Trough Salicylates Acetaminophen Plasma/Serum Alcohol Crossmatch 02/29/20 02/29/20 03/01/20 18:53 23:10 06:53 WBC RBC Hgb Hct MCH RDW Plt Count Lymph % (Auto) [place] % (Auto) [place] # Baso # Seg Neutrophils % Seg Neuts % (Manual) Lymphocytes % (Manual) Monocytes % (Manual) Seg Neutrophils # Seg Neutrophils # Man Lymphocytes # (Manual) Monocytes # (Manual) Eosinophils # (Manual) Basophils # (Manual) PT INR APTT ABG pH ABG pO2 ABG HCO3 ABG O2 Saturation ABG Base Excess ABG Hemoglobin Oxyhemoglobin Sodium Potassium Chloride Carbon Dioxide BUN Creatinine Glucose POC Glucose 112 H 147 H 131 H Lactic Acid Calcium Ionized Calcium Phosphorus Magnesium Total Bilirubin AST ALT Alkaline Phosphatase Ammonia Total Creatine Kinase CK-MB (CK-2) CK-MB (CK-2) Rel Index Total Protein Albumin Urine WBC (Auto) Vancomycin Trough Salicylates Acetaminophen Plasma/Serum Alcohol Crossmatch 03/01/20 03/01/20 03/02/20 17:31 18:35 00:10 WBC RBC Hgb Hct MCH RDW Plt Count Lymph % (Auto) [place] % (Auto) [place] # Baso # Seg Neutrophils % Seg Neuts % (Manual) Lymphocytes % (Manual) Monocytes % (Manual) Seg Neutrophils # Seg Neutrophils # Man Lymphocytes # (Manual) Monocytes # (Manual) Eosinophils # (Manual) Basophils # (Manual) PT INR APTT ABG pH ABG pO2 ABG HCO3 ABG O2 Saturation ABG Base Excess ABG Hemoglobin Oxyhemoglobin Sodium Potassium Chloride Carbon Dioxide BUN Creatinine Glucose POC Glucose 61 L 129 H 117 H Lactic Acid Calcium Ionized Calcium Phosphorus Magnesium Total Bilirubin AST ALT Alkaline Phosphatase Ammonia Total Creatine Kinase CK-MB (CK-2) CK-MB (CK-2) Rel Index Total Protein Albumin Urine WBC (Auto) Vancomycin Trough Salicylates Acetaminophen Plasma/Serum Alcohol Crossmatch 03/02/20 03/02/20 03/02/20 06:56 12:02 18:42 WBC RBC Hgb Hct MCH RDW Plt Count Lymph % (Auto) [place] % (Auto) [place] # Baso # Seg Neutrophils % Seg Neuts % (Manual) Lymphocytes % (Manual) Monocytes % (Manual) Seg Neutrophils # Seg Neutrophils # Man Lymphocytes # (Manual) Monocytes # (Manual) Eosinophils # (Manual) Basophils # (Manual) PT INR APTT ABG pH ABG pO2 ABG HCO3 ABG O2 Saturation ABG Base Excess ABG Hemoglobin Oxyhemoglobin Sodium Potassium Chloride Carbon Dioxide BUN Creatinine Glucose POC Glucose 125 H 111 H 126 H Lactic Acid Calcium Ionized Calcium Phosphorus Magnesium Total Bilirubin AST ALT Alkaline Phosphatase Ammonia Total Creatine Kinase CK-MB (CK-2) CK-MB (CK-2) Rel Index Total Protein Albumin Urine WBC (Auto) Vancomycin Trough Salicylates Acetaminophen Plasma/Serum Alcohol Crossmatch 03/03/20 03/03/20 03/03/20 00:18 06:11 11:50 WBC RBC Hgb Hct MCH RDW Plt Count Lymph % (Auto) [place] % (Auto) [place] # Baso # Seg Neutrophils % Seg Neuts % (Manual) Lymphocytes % (Manual) Monocytes % (Manual) Seg Neutrophils # Seg Neutrophils # Man Lymphocytes # (Manual) Monocytes # (Manual) Eosinophils # (Manual) Basophils # (Manual) PT INR APTT ABG pH ABG pO2 ABG HCO3 ABG O2 Saturation ABG Base Excess ABG Hemoglobin Oxyhemoglobin Sodium Potassium Chloride Carbon Dioxide BUN Creatinine Glucose POC Glucose 139 H 155 H 118 H Lactic Acid Calcium Ionized Calcium Phosphorus Magnesium Total Bilirubin AST ALT Alkaline Phosphatase Ammonia Total Creatine Kinase CK-MB (CK-2) CK-MB (CK-2) Rel Index Total Protein Albumin Urine WBC (Auto) Vancomycin Trough Salicylates Acetaminophen Plasma/Serum Alcohol Crossmatch 03/03/20 03/03/20 03/04/20 18:09 23:46 05:37 WBC RBC Hgb Hct MCH RDW Plt Count Lymph % (Auto) [place] % (Auto) [place] # Baso # Seg Neutrophils % Seg Neuts % (Manual) Lymphocytes % (Manual) Monocytes % (Manual) Seg Neutrophils # Seg Neutrophils # Man Lymphocytes # (Manual) Monocytes # (Manual) Eosinophils # (Manual) Basophils # (Manual) PT INR APTT ABG pH ABG pO2 ABG HCO3 ABG O2 Saturation ABG Base Excess ABG Hemoglobin Oxyhemoglobin Sodium Potassium Chloride Carbon Dioxide BUN Creatinine Glucose POC Glucose 109 H 132 H 111 H Lactic Acid Calcium Ionized Calcium Phosphorus Magnesium Total Bilirubin AST ALT Alkaline Phosphatase Ammonia Total Creatine Kinase CK-MB (CK-2) CK-MB (CK-2) Rel Index Total Protein Albumin Urine WBC (Auto) Vancomycin Trough Salicylates Acetaminophen Plasma/Serum Alcohol Crossmatch 03/04/20 03/04/20 03/05/20 11:38 17:54 00:14 WBC RBC Hgb Hct MCH RDW Plt Count Lymph % (Auto) [place] % (Auto) [place] # Baso # Seg Neutrophils % Seg Neuts % (Manual) Lymphocytes % (Manual) Monocytes % (Manual) Seg Neutrophils # Seg Neutrophils # Man Lymphocytes # (Manual) Monocytes # (Manual) Eosinophils # (Manual) Basophils # (Manual) PT INR APTT ABG pH ABG pO2 ABG HCO3 ABG O2 Saturation ABG Base Excess ABG Hemoglobin Oxyhemoglobin Sodium Potassium Chloride Carbon Dioxide BUN Creatinine Glucose POC Glucose 138 H 118 H 134 H Lactic Acid Calcium Ionized Calcium Phosphorus Magnesium Total Bilirubin AST ALT Alkaline Phosphatase Ammonia Total Creatine Kinase CK-MB (CK-2) CK-MB (CK-2) Rel Index Total Protein Albumin Urine WBC (Auto) Vancomycin Trough Salicylates Acetaminophen Plasma/Serum Alcohol Crossmatch 03/06/20 03/06/20 03/06/20 03:37 03:37 06:29 WBC RBC Hgb Hct MCH RDW Plt Count 550 H Lymph % (Auto) [place] % (Auto) 9.1 H [place] # Baso # Seg Neutrophils % Seg Neuts % (Manual) Lymphocytes % (Manual) Monocytes % (Manual) Seg Neutrophils # Seg Neutrophils # Man Lymphocytes # (Manual) Monocytes # (Manual) Eosinophils # (Manual) Basophils # (Manual) PT INR APTT ABG pH ABG pO2 ABG HCO3 ABG O2 Saturation ABG Base Excess ABG Hemoglobin Oxyhemoglobin Sodium Potassium Chloride Carbon Dioxide BUN 26 H Creatinine 0.5 L Glucose POC Glucose 128 H Lactic Acid Calcium 10.4 H Ionized Calcium Phosphorus Magnesium Total Bilirubin AST ALT Alkaline Phosphatase Ammonia Total Creatine Kinase CK-MB (CK-2) CK-MB (CK-2) Rel Index Total Protein Albumin Urine WBC (Auto) Vancomycin Trough Salicylates Acetaminophen Plasma/Serum Alcohol Crossmatch 03/06/20 03/07/20 03/07/20 17:47 06:37 12:37 WBC RBC Hgb Hct MCH RDW Plt Count Lymph % (Auto) [place] % (Auto) [place] # Baso # Seg Neutrophils % Seg Neuts % (Manual) Lymphocytes % (Manual) Monocytes % (Manual) Seg Neutrophils # Seg Neutrophils # Man Lymphocytes # (Manual) Monocytes # (Manual) Eosinophils # (Manual) Basophils # (Manual) PT INR APTT ABG pH ABG pO2 ABG HCO3 ABG O2 Saturation ABG Base Excess ABG Hemoglobin Oxyhemoglobin Sodium Potassium Chloride Carbon Dioxide BUN Creatinine Glucose POC Glucose 120 H 113 H 118 H Lactic Acid Calcium Ionized Calcium Phosphorus Magnesium Total Bilirubin AST ALT Alkaline Phosphatase Ammonia Total Creatine Kinase CK-MB (CK-2) CK-MB (CK-2) Rel Index Total Protein Albumin Urine WBC (Auto) Vancomycin Trough Salicylates Acetaminophen Plasma/Serum Alcohol Crossmatch 03/07/20 03/08/20 03/08/20 16:41 00:55 06:25 WBC RBC Hgb Hct MCH RDW Plt Count Lymph % (Auto) [place] % (Auto) [place] # Baso # Seg Neutrophils % Seg Neuts % (Manual) Lymphocytes % (Manual) Monocytes % (Manual) Seg Neutrophils # Seg Neutrophils # Man Lymphocytes # (Manual) Monocytes # (Manual) Eosinophils # (Manual) Basophils # (Manual) PT INR APTT ABG pH ABG pO2 ABG HCO3 ABG O2 Saturation ABG Base Excess ABG Hemoglobin Oxyhemoglobin Sodium Potassium Chloride Carbon Dioxide BUN Creatinine Glucose POC Glucose 108 H 139 H 127 H Lactic Acid Calcium Ionized Calcium Phosphorus Magnesium Total Bilirubin AST ALT Alkaline Phosphatase Ammonia Total Creatine Kinase CK-MB (CK-2) CK-MB (CK-2) Rel Index Total Protein Albumin Urine WBC (Auto) Vancomycin Trough Salicylates Acetaminophen Plasma/Serum Alcohol Crossmatch 03/08/20 03/08/20 03/08/20 12:49 13:25 17:13 WBC RBC Hgb Hct MCH RDW Plt Count Lymph % (Auto) [place] % (Auto) [place] # Baso # Seg Neutrophils % Seg Neuts % (Manual) Lymphocytes % (Manual) Monocytes % (Manual) Seg Neutrophils # Seg Neutrophils # Man Lymphocytes # (Manual) Monocytes # (Manual) Eosinophils # (Manual) Basophils # (Manual) PT INR APTT ABG pH ABG pO2 71.1 L ABG HCO3 26.2 H ABG O2 Saturation ABG Base Excess ABG Hemoglobin 8.2 L Oxyhemoglobin 94.8 L Sodium Potassium Chloride Carbon Dioxide BUN Creatinine Glucose POC Glucose 127 H 147 H Lactic Acid Calcium Ionized Calcium Phosphorus Magnesium Total Bilirubin AST ALT Alkaline Phosphatase Ammonia Total Creatine Kinase CK-MB (CK-2) CK-MB (CK-2) Rel Index Total Protein Albumin Urine WBC (Auto) Vancomycin Trough Salicylates Acetaminophen Plasma/Serum Alcohol Crossmatch 03/09/20 03/09/20 03/09/20 06:28 08:36 23:58 WBC RBC Hgb Hct MCH RDW Plt Count Lymph % (Auto) [place] % (Auto) [place] # Baso # Seg Neutrophils % Seg Neuts % (Manual) Lymphocytes % (Manual) Monocytes % (Manual) Seg Neutrophils # Seg Neutrophils # Man Lymphocytes # (Manual) Monocytes # (Manual) Eosinophils # (Manual) Basophils # (Manual) PT INR APTT ABG pH ABG pO2 ABG HCO3 ABG O2 Saturation ABG Base Excess ABG Hemoglobin Oxyhemoglobin Sodium Potassium Chloride Carbon Dioxide BUN Creatinine Glucose POC Glucose 139 H 167 H 122 H Lactic Acid Calcium Ionized Calcium Phosphorus Magnesium Total Bilirubin AST ALT Alkaline Phosphatase Ammonia Total Creatine Kinase CK-MB (CK-2) CK-MB (CK-2) Rel Index Total Protein Albumin Urine WBC (Auto) Vancomycin Trough Salicylates Acetaminophen Plasma/Serum Alcohol Crossmatch 03/10/20 03/10/20 03/11/20 06:32 23:27 06:23 WBC RBC Hgb Hct MCH RDW Plt Count Lymph % (Auto) [place] % (Auto) [place] # Baso # Seg Neutrophils % Seg Neuts % (Manual) Lymphocytes % (Manual) Monocytes % (Manual) Seg Neutrophils # Seg Neutrophils # Man Lymphocytes # (Manual) Monocytes # (Manual) Eosinophils # (Manual) Basophils # (Manual) PT INR APTT ABG pH ABG pO2 ABG HCO3 ABG O2 Saturation ABG Base Excess ABG Hemoglobin Oxyhemoglobin Sodium Potassium Chloride Carbon Dioxide BUN Creatinine Glucose POC Glucose 165 H 115 H 139 H Lactic Acid Calcium Ionized Calcium Phosphorus Magnesium Total Bilirubin AST ALT Alkaline Phosphatase Ammonia Total Creatine Kinase CK-MB (CK-2) CK-MB (CK-2) Rel Index Total Protein Albumin Urine WBC (Auto) Vancomycin Trough Salicylates Acetaminophen Plasma/Serum Alcohol Crossmatch 03/11/20 03/11/20 03/12/20 12:29 18:02 04:53 WBC RBC Hgb Hct MCH RDW Plt Count 625 H Lymph % (Auto) [place] % (Auto) [place] # Baso # Seg Neutrophils % Seg Neuts % (Manual) Lymphocytes % (Manual) Monocytes % (Manual) Seg Neutrophils # Seg Neutrophils # Man Lymphocytes # (Manual) Monocytes # (Manual) Eosinophils # (Manual) Basophils # (Manual) PT INR APTT ABG pH ABG pO2 ABG HCO3 ABG O2 Saturation ABG Base Excess ABG Hemoglobin Oxyhemoglobin Sodium Potassium Chloride Carbon Dioxide BUN Creatinine Glucose POC Glucose 164 H 113 H Lactic Acid Calcium Ionized Calcium Phosphorus Magnesium Total Bilirubin AST ALT Alkaline Phosphatase Ammonia Total Creatine Kinase CK-MB (CK-2) CK-MB (CK-2) Rel Index Total Protein Albumin Urine WBC (Auto) Vancomycin Trough Salicylates Acetaminophen Plasma/Serum Alcohol Crossmatch 03/12/20 03/12/20 03/12/20 04:53 06:26 12:38 WBC RBC Hgb Hct MCH RDW Plt Count Lymph % (Auto) [place] % (Auto) [place] # Baso # Seg Neutrophils % Seg Neuts % (Manual) Lymphocytes % (Manual) Monocytes % (Manual) Seg Neutrophils # Seg Neutrophils # Man Lymphocytes # (Manual) Monocytes # (Manual) Eosinophils # (Manual) Basophils # (Manual) PT INR APTT ABG pH ABG pO2 ABG HCO3 ABG O2 Saturation ABG Base Excess ABG Hemoglobin Oxyhemoglobin Sodium Potassium 5.3 H Chloride Carbon Dioxide BUN 34 H Creatinine Glucose 159 H POC Glucose 149 H 130 H Lactic Acid Calcium 10.7 H Ionized Calcium Phosphorus Magnesium Total Bilirubin AST ALT Alkaline Phosphatase Ammonia Total Creatine Kinase CK-MB (CK-2) CK-MB (CK-2) Rel Index Total Protein Albumin Urine WBC (Auto) Vancomycin Trough Salicylates Acetaminophen Plasma/Serum Alcohol Crossmatch 03/13/20 03/13/20 03/13/20 03:50 06:12 18:11 WBC RBC Hgb Hct MCH RDW Plt Count Lymph % (Auto) [place] % (Auto) [place] # Baso # Seg Neutrophils % Seg Neuts % (Manual) Lymphocytes % (Manual) Monocytes % (Manual) Seg Neutrophils # Seg Neutrophils # Man Lymphocytes # (Manual) Monocytes # (Manual) Eosinophils # (Manual) Basophils # (Manual) PT INR APTT ABG pH ABG pO2 ABG HCO3 ABG O2 Saturation ABG Base Excess ABG Hemoglobin Oxyhemoglobin Sodium Potassium Chloride Carbon Dioxide 20 L BUN 30 H Creatinine 0.6 L Glucose 153 H POC Glucose 124 H 111 H Lactic Acid Calcium Ionized Calcium Phosphorus Magnesium Total Bilirubin AST ALT Alkaline Phosphatase Ammonia Total Creatine Kinase CK-MB (CK-2) CK-MB (CK-2) Rel Index Total Protein Albumin Urine WBC (Auto) Vancomycin Trough Salicylates Acetaminophen Plasma/Serum Alcohol Crossmatch 03/14/20 03/14/20 03/15/20 12:01 15:40 00:02 WBC RBC Hgb Hct MCH RDW Plt Count Lymph % (Auto) [place] % (Auto) [place] # Baso # Seg Neutrophils % Seg Neuts % (Manual) Lymphocytes % (Manual) Monocytes % (Manual) Seg Neutrophils # Seg Neutrophils # Man Lymphocytes # (Manual) Monocytes # (Manual) Eosinophils # (Manual) Basophils # (Manual) PT INR APTT ABG pH ABG pO2 ABG HCO3 ABG O2 Saturation ABG Base Excess ABG Hemoglobin Oxyhemoglobin Sodium Potassium Chloride Carbon Dioxide BUN Creatinine Glucose POC Glucose 116 H 125 H 143 H Lactic Acid Calcium Ionized Calcium Phosphorus Magnesium Total Bilirubin AST ALT Alkaline Phosphatase Ammonia Total Creatine Kinase CK-MB (CK-2) CK-MB (CK-2) Rel Index Total Protein Albumin Urine WBC (Auto) Vancomycin Trough Salicylates Acetaminophen Plasma/Serum Alcohol Crossmatch 03/15/20 03/15/20 03/16/20 12:03 18:14 12:14 WBC RBC Hgb Hct MCH RDW Plt Count Lymph % (Auto) [place] % (Auto) [place] # Baso # Seg Neutrophils % Seg Neuts % (Manual) Lymphocytes % (Manual) Monocytes % (Manual) Seg Neutrophils # Seg Neutrophils # Man Lymphocytes # (Manual) Monocytes # (Manual) Eosinophils # (Manual) Basophils # (Manual) PT INR APTT ABG pH ABG pO2 ABG HCO3 ABG O2 Saturation ABG Base Excess ABG Hemoglobin Oxyhemoglobin Sodium Potassium Chloride Carbon Dioxide BUN Creatinine Glucose POC Glucose 106 H 107 H 107 H Lactic Acid Calcium Ionized Calcium Phosphorus Magnesium Total Bilirubin AST ALT Alkaline Phosphatase Ammonia Total Creatine Kinase CK-MB (CK-2) CK-MB (CK-2) Rel Index Total Protein Albumin Urine WBC (Auto) Vancomycin Trough Salicylates Acetaminophen Plasma/Serum Alcohol Crossmatch 03/16/20 03/17/20 03/17/20 18:30 05:44 12:09 WBC RBC Hgb Hct MCH RDW Plt Count Lymph % (Auto) [place] % (Auto) [place] # Baso # Seg Neutrophils % Seg Neuts % (Manual) Lymphocytes % (Manual) Monocytes % (Manual) Seg Neutrophils # Seg Neutrophils # Man Lymphocytes # (Manual) Monocytes # (Manual) Eosinophils # (Manual) Basophils # (Manual) PT INR APTT ABG pH ABG pO2 ABG HCO3 ABG O2 Saturation ABG Base Excess ABG Hemoglobin Oxyhemoglobin Sodium Potassium Chloride Carbon Dioxide BUN Creatinine Glucose POC Glucose 128 H 114 H 120 H Lactic Acid Calcium Ionized Calcium Phosphorus Magnesium Total Bilirubin AST ALT Alkaline Phosphatase Ammonia Total Creatine Kinase CK-MB (CK-2) CK-MB (CK-2) Rel Index Total Protein Albumin Urine WBC (Auto) Vancomycin Trough Salicylates Acetaminophen Plasma/Serum Alcohol Crossmatch 03/17/20 03/17/20 03/18/20 16:51 23:36 07:07 WBC RBC Hgb Hct MCH RDW Plt Count Lymph % (Auto) [place] % (Auto) [place] # Baso # Seg Neutrophils % Seg Neuts % (Manual) Lymphocytes % (Manual) Monocytes % (Manual) Seg Neutrophils # Seg Neutrophils # Man Lymphocytes # (Manual) Monocytes # (Manual) Eosinophils # (Manual) Basophils # (Manual) PT INR APTT ABG pH ABG pO2 ABG HCO3 ABG O2 Saturation ABG Base Excess ABG Hemoglobin Oxyhemoglobin Sodium Potassium Chloride Carbon Dioxide BUN Creatinine Glucose POC Glucose 108 H 145 H 116 H Lactic Acid Calcium Ionized Calcium Phosphorus Magnesium Total Bilirubin AST ALT Alkaline Phosphatase Ammonia Total Creatine Kinase CK-MB (CK-2) CK-MB (CK-2) Rel Index Total Protein Albumin Urine WBC (Auto) Vancomycin Trough Salicylates Acetaminophen Plasma/Serum Alcohol Crossmatch 03/18/20 03/19/20 03/19/20 18:11 06:09 11:49 WBC RBC Hgb Hct MCH RDW Plt Count Lymph % (Auto) [place] % (Auto) [place] # Baso # Seg Neutrophils % Seg Neuts % (Manual) Lymphocytes % (Manual) Monocytes % (Manual) Seg Neutrophils # Seg Neutrophils # Man Lymphocytes # (Manual) Monocytes # (Manual) Eosinophils # (Manual) Basophils # (Manual) PT INR APTT ABG pH ABG pO2 ABG HCO3 ABG O2 Saturation ABG Base Excess ABG Hemoglobin Oxyhemoglobin Sodium Potassium Chloride Carbon Dioxide BUN Creatinine Glucose POC Glucose 106 H 160 H 145 H Lactic Acid Calcium Ionized Calcium Phosphorus Magnesium Total Bilirubin AST ALT Alkaline Phosphatase Ammonia Total Creatine Kinase CK-MB (CK-2) CK-MB (CK-2) Rel Index Total Protein Albumin Urine WBC (Auto) Vancomycin Trough Salicylates Acetaminophen Plasma/Serum Alcohol Crossmatch 03/20/20 03/20/2020 01:01 06:14 12:52 WBC RBC Hgb Hct MCH RDW Plt Count Lymph % (Auto) [place] % (Auto) [place] # Baso # Seg Neutrophils % Seg Neuts % (Manual) Lymphocytes % (Manual) Monocytes % (Manual) Seg Neutrophils # Seg Neutrophils # Man Lymphocytes # (Manual) Monocytes # (Manual) Eosinophils # (Manual) Basophils # (Manual) PT INR APTT ABG pH ABG pO2 ABG HCO3 ABG O2 Saturation ABG Base Excess ABG Hemoglobin Oxyhemoglobin Sodium Potassium Chloride Carbon Dioxide BUN Creatinine Glucose POC Glucose 109 H 122 H 106 H Lactic Acid Calcium Ionized Calcium Phosphorus Magnesium Total Bilirubin AST ALT Alkaline Phosphatase Ammonia Total Creatine Kinase CK-MB (CK-2) CK-MB (CK-2) Rel Index Total Protein Albumin Urine WBC (Auto) Vancomycin Trough Salicylates Acetaminophen Plasma/Serum Alcohol Crossmatch 03/20/20 03/21/20 03/21/20 18:56 00:18 05:21 WBC RBC Hgb Hct MCH RDW Plt Count Lymph % (Auto) [place] % (Auto) [place] # Baso # Seg Neutrophils % Seg Neuts % (Manual) Lymphocytes % (Manual) Monocytes % (Manual) Seg Neutrophils # Seg Neutrophils # Man Lymphocytes # (Manual) Monocytes # (Manual) Eosinophils # (Manual) Basophils # (Manual) PT INR APTT ABG pH ABG pO2 ABG HCO3 ABG O2 Saturation ABG Base Excess ABG Hemoglobin Oxyhemoglobin Sodium Potassium Chloride Carbon Dioxide BUN Creatinine Glucose POC Glucose 110 H 140 H 112 H Lactic Acid Calcium Ionized Calcium Phosphorus Magnesium Total Bilirubin AST ALT Alkaline Phosphatase Ammonia Total Creatine Kinase CK-MB (CK-2) CK-MB (CK-2) Rel Index Total Protein Albumin Urine WBC (Auto) Vancomycin Trough Salicylates Acetaminophen Plasma/Serum Alcohol Crossmatch 03/21/20 03/22/20 03/22/20 17:15 01:14 12:08 WBC RBC Hgb Hct MCH RDW Plt Count Lymph % (Auto) [place] % (Auto) [place] # Baso # Seg Neutrophils % Seg Neuts % (Manual) Lymphocytes % (Manual) Monocytes % (Manual) Seg Neutrophils # Seg Neutrophils # Man Lymphocytes # (Manual) Monocytes # (Manual) Eosinophils # (Manual) Basophils # (Manual) PT INR APTT ABG pH ABG pO2 ABG HCO3 ABG O2 Saturation ABG Base Excess ABG Hemoglobin Oxyhemoglobin Sodium Potassium Chloride Carbon Dioxide BUN Creatinine Glucose POC Glucose 158 H 157 H 133 H Lactic Acid Calcium Ionized Calcium Phosphorus Magnesium Total Bilirubin AST ALT Alkaline Phosphatase Ammonia Total Creatine Kinase CK-MB (CK-2) CK-MB (CK-2) Rel Index Total Protein Albumin Urine WBC (Auto) Vancomycin Trough Salicylates Acetaminophen Plasma/Serum Alcohol Crossmatch 03/22/20 03/23/20 03/23/20 16:48 01:00 06:54 WBC RBC Hgb Hct MCH RDW Plt Count Lymph % (Auto) [place] % (Auto) [place] # Baso # Seg Neutrophils % Seg Neuts % (Manual) Lymphocytes % (Manual) Monocytes % (Manual) Seg Neutrophils # Seg Neutrophils # Man Lymphocytes # (Manual) Monocytes # (Manual) Eosinophils # (Manual) Basophils # (Manual) PT INR APTT ABG pH ABG pO2 ABG HCO3 ABG O2 Saturation ABG Base Excess ABG Hemoglobin Oxyhemoglobin Sodium Potassium Chloride Carbon Dioxide BUN Creatinine Glucose POC Glucose 111 H 153 H 129 H Lactic Acid Calcium Ionized Calcium Phosphorus Magnesium Total Bilirubin AST ALT Alkaline Phosphatase Ammonia Total Creatine Kinase CK-MB (CK-2) CK-MB (CK-2) Rel Index Total Protein Albumin Urine WBC (Auto) Vancomycin Trough Salicylates Acetaminophen Plasma/Serum Alcohol Crossmatch 03/23/20 03/23/20 03/23/20 12:08 15:54 23:20 WBC RBC Hgb Hct MCH RDW Plt Count Lymph % (Auto) [place] % (Auto) [place] # Baso # Seg Neutrophils % Seg Neuts % (Manual) Lymphocytes % (Manual) Monocytes % (Manual) Seg Neutrophils # Seg Neutrophils # Man Lymphocytes # (Manual) Monocytes # (Manual) Eosinophils # (Manual) Basophils # (Manual) PT INR APTT ABG pH ABG pO2 ABG HCO3 ABG O2 Saturation ABG Base Excess ABG Hemoglobin Oxyhemoglobin Sodium Potassium Chloride Carbon Dioxide BUN Creatinine Glucose POC Glucose 126 H 142 H 115 H Lactic Acid Calcium Ionized Calcium Phosphorus Magnesium Total Bilirubin AST ALT Alkaline Phosphatase Ammonia Total Creatine Kinase CK-MB (CK-2) CK-MB (CK-2) Rel Index Total Protein Albumin Urine WBC (Auto) Vancomycin Trough Salicylates Acetaminophen Plasma/Serum Alcohol Crossmatch 03/24/20 03/24/20 03/24/20 06:33 12:19 16:46 WBC RBC Hgb Hct MCH RDW Plt Count Lymph % (Auto) [place] % (Auto) [place] # Baso # Seg Neutrophils % Seg Neuts % (Manual) Lymphocytes % (Manual) Monocytes % (Manual) Seg Neutrophils # Seg Neutrophils # Man Lymphocytes # (Manual) Monocytes # (Manual) Eosinophils # (Manual) Basophils # (Manual) PT INR APTT ABG pH ABG pO2 ABG HCO3 ABG O2 Saturation ABG Base Excess ABG Hemoglobin Oxyhemoglobin Sodium Potassium Chloride Carbon Dioxide BUN Creatinine Glucose POC Glucose 122 H 156 H 140 H Lactic Acid Calcium Ionized Calcium Phosphorus Magnesium Total Bilirubin AST ALT Alkaline Phosphatase Ammonia Total Creatine Kinase CK-MB (CK-2) CK-MB (CK-2) Rel Index Total Protein Albumin Urine WBC (Auto) Vancomycin Trough Salicylates Acetaminophen Plasma/Serum Alcohol Crossmatch 03/24/20 03/25/20 03/25/20 23:56 04:28 06:45 WBC RBC Hgb Hct MCH RDW Plt Count Lymph % (Auto) [place] % (Auto) [place] # Baso # Seg Neutrophils % Seg Neuts % (Manual) Lymphocytes % (Manual) Monocytes % (Manual) Seg Neutrophils # Seg Neutrophils # Man Lymphocytes # (Manual) Monocytes # (Manual) Eosinophils # (Manual) Basophils # (Manual) PT INR APTT ABG pH ABG pO2 ABG HCO3 ABG O2 Saturation ABG Base Excess ABG Hemoglobin Oxyhemoglobin Sodium Potassium Chloride Carbon Dioxide BUN 23 H Creatinine 0.5 L Glucose 121 H POC Glucose 127 H 130 H Lactic Acid Calcium 10.3 H Ionized Calcium Phosphorus Magnesium Total Bilirubin AST ALT Alkaline Phosphatase Ammonia Total Creatine Kinase CK-MB (CK-2) CK-MB (CK-2) Rel Index Total Protein Albumin Urine WBC (Auto) Vancomycin Trough Salicylates Acetaminophen Plasma/Serum Alcohol Crossmatch 03/25/20 03/25/20 03/26/20 12:50 15:57 05:39 WBC RBC Hgb Hct MCH RDW Plt Count Lymph % (Auto) [place] % (Auto) [place] # Baso # Seg Neutrophils % Seg Neuts % (Manual) Lymphocytes % (Manual) Monocytes % (Manual) Seg Neutrophils # Seg Neutrophils # Man Lymphocytes # (Manual) Monocytes # (Manual) Eosinophils # (Manual) Basophils # (Manual) PT INR APTT ABG pH ABG pO2 ABG HCO3 ABG O2 Saturation ABG Base Excess ABG Hemoglobin Oxyhemoglobin Sodium Potassium Chloride Carbon Dioxide BUN Creatinine Glucose POC Glucose 145 H 118 H 136 H Lactic Acid Calcium Ionized Calcium Phosphorus Magnesium Total Bilirubin AST ALT Alkaline Phosphatase Ammonia Total Creatine Kinase CK-MB (CK-2) CK-MB (CK-2) Rel Index Total Protein Albumin Urine WBC (Auto) Vancomycin Trough Salicylates Acetaminophen Plasma/Serum Alcohol Crossmatch 03/26/20 03/26/20 03/27/20 16:04 23:17 11:31 WBC RBC Hgb Hct MCH RDW Plt Count Lymph % (Auto) [place] % (Auto) [place] # Baso # Seg Neutrophils % Seg Neuts % (Manual) Lymphocytes % (Manual) Monocytes % (Manual) Seg Neutrophils # Seg Neutrophils # Man Lymphocytes # (Manual) Monocytes # (Manual) Eosinophils # (Manual) Basophils # (Manual) PT INR APTT ABG pH ABG pO2 ABG HCO3 ABG O2 Saturation ABG Base Excess ABG Hemoglobin Oxyhemoglobin Sodium Potassium Chloride Carbon Dioxide BUN Creatinine Glucose POC Glucose 157 H 157 H 121 H Lactic Acid Calcium Ionized Calcium Phosphorus Magnesium Total Bilirubin AST ALT Alkaline Phosphatase Ammonia Total Creatine Kinase CK-MB (CK-2) CK-MB (CK-2) Rel Index Total Protein Albumin Urine WBC (Auto) Vancomycin Trough Salicylates Acetaminophen Plasma/Serum Alcohol Crossmatch 03/27/20 03/28/20 03/28/20 16:33 01:55 12:12 WBC RBC Hgb Hct MCH RDW Plt Count Lymph % (Auto) [place] % (Auto) [place] # Baso # Seg Neutrophils % Seg Neuts % (Manual) Lymphocytes % (Manual) Monocytes % (Manual) Seg Neutrophils # Seg Neutrophils # Man Lymphocytes # (Manual) Monocytes # (Manual) Eosinophils # (Manual) Basophils # (Manual) PT INR APTT ABG pH ABG pO2 ABG HCO3 ABG O2 Saturation ABG Base Excess ABG Hemoglobin Oxyhemoglobin Sodium Potassium Chloride Carbon Dioxide BUN Creatinine Glucose POC Glucose 126 H 106 H 116 H Lactic Acid Calcium Ionized Calcium Phosphorus Magnesium Total Bilirubin AST ALT Alkaline Phosphatase Ammonia Total Creatine Kinase CK-MB (CK-2) CK-MB (CK-2) Rel Index Total Protein Albumin Urine WBC (Auto) Vancomycin Trough Salicylates Acetaminophen Plasma/Serum Alcohol Crossmatch 03/28/20 03/29/20 03/29/20 17:57 06:41 16:48 WBC RBC Hgb Hct MCH RDW Plt Count Lymph % (Auto) [place] % (Auto) [place] # Baso # Seg Neutrophils % Seg Neuts % (Manual) Lymphocytes % (Manual) Monocytes % (Manual) Seg Neutrophils # Seg Neutrophils # Man Lymphocytes # (Manual) Monocytes # (Manual) Eosinophils # (Manual) Basophils # (Manual) PT INR APTT ABG pH ABG pO2 ABG HCO3 ABG O2 Saturation ABG Base Excess ABG Hemoglobin Oxyhemoglobin Sodium Potassium Chloride Carbon Dioxide BUN Creatinine Glucose POC Glucose 138 H 154 H 136 H Lactic Acid Calcium Ionized Calcium Phosphorus Magnesium Total Bilirubin AST ALT Alkaline Phosphatase Ammonia Total Creatine Kinase CK-MB (CK-2) CK-MB (CK-2) Rel Index Total Protein Albumin Urine WBC (Auto) Vancomycin Trough Salicylates Acetaminophen Plasma/Serum Alcohol Crossmatch 03/30/20 03/30/20 05:44 12:16 WBC RBC Hgb Hct MCH RDW Plt Count Lymph % (Auto) [place] % (Auto) [place] # Baso # Seg Neutrophils % Seg Neuts % (Manual) Lymphocytes % (Manual) Monocytes % (Manual) Seg Neutrophils # Seg Neutrophils # Man Lymphocytes # (Manual) Monocytes # (Manual) Eosinophils # (Manual) Basophils # (Manual) PT INR APTT ABG pH ABG pO2 ABG HCO3 ABG O2 Saturation ABG Base Excess ABG Hemoglobin Oxyhemoglobin Sodium Potassium Chloride Carbon Dioxide BUN Creatinine Glucose POC Glucose 110 H 122 H Lactic Acid Calcium Ionized Calcium Phosphorus Magnesium Total Bilirubin AST ALT Alkaline Phosphatase Ammonia Total Creatine Kinase CK-MB (CK-2) CK-MB (CK-2) Rel Index Total Protein Albumin Urine WBC (Auto) Vancomycin Trough Salicylates Acetaminophen Plasma/Serum Alcohol Crossmatch Allied health notes reviewed: RT
[2020-03-30] MEDS: ENOXAPARIN 40 MG/0.4 ML INJ SUB-Q SCH (21:47)
--- NOTE | 2020-03-31 08:25 | Progress Note ---
Assessment and Plan Assessment and plan: 54-year-old female with a past medical history of Hypertension, Depression, Tobacco use Disorder, Alcohol use Disorder as confirmed by Daughter and pt's mother presents to the hospital status post cardiac arrest at home. EMS found pt in [facility]. They were unable to intubate patient with a ET tube because she was clenching down therefore Joe airway placed. Per the ED physician who evaluated pt, Patient presented with a pulse, intermittent respirations, and bagging support via Joe airway with O2 sat of 100%. Accu-Chek of 71 obtained by EMS. She was intubated in the ER and called for admission. Following admission patient was diagnosed with anoxic brain injury, sepsis with MRSA bacteremia and MSSA pneumonia, alcoholic liver disease. Family member initially wished for full code then changed to DNR, patient treated with IV antibiotics for sepsis, status post trach and PEG on 12/13/19. Weaned off from the vent and put on T- piece. Patient is uninsured, waiting for placement, guarded prognosis. Anoxic brain injury: suspected CT head: No acute abnormality. EEG ordered showed Generalized slowing. No seizures or epileptiform activity. -Patient now opening her eyes, can speak and able to follow command -As needed haldol for agitation Acute Respiratory failure -due to MSSA PNA -s/p intubation, s/p trach and PEG on 12/12 with mechanical ventilation, now on T-piece - CTA was done and negative for PE, - Echo quality is poor, showed diastolic dysfunction - continue weaning as tolerated -Continue appropriate and adequate tracheostomy care Tracheostomy site ulceration -Continue appropriate wound management try to keep area dry. Anemia, microcytic - Status post 3 units PRBC transfusion, H&H low stable Acute metabolic encephalopathy/toxic encephalopathy due to the above - cont supportive care Hyperammonemia - likely from liver disease related to EtOH abuse - Patient had elevated ammonia level and treated with lactulose Metabolic Acidosis -Alcohol ketoacidosis vs hypoprofusion -Continue to monitor ELevated LFTs, stable now - due to ischemic hepatitis. Leucocytosis with sepsis - Source MRSA bacteremia and MSSA pneumonia. UA showed pyuria. RUQ US showed no ascites. - Repeat TTE negative for vegetation. Completed 7 days of Ceftriaxone on 11/29/2019. -Treated with Abx vancomycin 1 gm IV q 12 hour total 2 week till 12/30/2019 Severe protein calorie malnutrition Dietitian following MSSA pneumonia: Status post vancomycin till 12/30/2019 Alcohol use Disorder - given ongoing Alcohol use almost daily, s/p IV Thiamine - monitor Severe hypokalemia -Repleted Seizure disorder: treated with Keppra H. Influenzae, tracheobronchitis, treated with abx Moderate to severe fecal impaction - will add stool softner DNR CODE STATUS Disposition: prognosis guarded. Family okay for DNR, PT recommended subacute rehab, discharge pending on placement. Negative for COVID 19 03/07: Returning to service no acute changes are noted. Continue current management while awaiting placement. Intermittent labs. Base of neck also around tracheostomy tube preventing downgrading. Continue appropriate wound care. 03/08: Plan of care unchanged continues on aerosol trach collar 28% of oxygen. Continue wound care management placement still pending status decision. 03/09: Continue current treatment plan. Continue aspiration precaution 03/10: Continue current management, Restraints as patient still pulling, awaiting placement 03/11: Continue supportive care, intermittent suctioning and pulmonary toilet. awaiting placement. 03/12: Continue supportive care, Give a bolus of fluids due to Hypercalcemia, Monitor Hyperkalemia with labs in am, No arrhythmia. Patient vomiting, concern for aspiration, Chest xray ordered and no active disease noted. Keep HOB >45% 03/13: No evidence of aspiration on xray. Continue supportive care. 03/14: Continue supportive care. Capping trials to start. Discussed with patients nursing and case management to continue daily PT by the Rehab team. 03/15: Discussed again with staff to start capping trial. 03/16: Do not see any indication the capping trial has started will discuss with respiratory therapist. Continue restraints. Still awaiting family decision patient has had some remarkable improvement considering the fact that she was able to stay around night without restraints. We will continue daily trial of this method. Discussed plan with nursing staff 03/17: Continue current care. Currently continue restraints. Continue current management. Continue physical therapy daily. 03/18: Capping trial successful and will possibly get decannulated today. Continue placement. 03/19: Now decannulated and doing well. Begin discharge planning. 03/20: Stable, no new complaints. 03/21: No new complaints. Continue supportive 03/22: No new complaints, still with some confusion, and agitation requiring restraints. Will require daily PT/OT and continue to work with Case management for placement 03/23: continue current management, daily PT/OT. stoma care. No new seizure, slow but gradual improvement noted daily 03/24: Mr. Amaya is a 55-year-old female who presented to the hospital was admitted post cardiac arrest at home she has remarkably done well been extubated and decannulated with stoma healing. She still does experience some intermittent delirious process and as a result is on restraints. I have discussed with nursing staff to see if they can provide a sitter for her and continue daily PT as this will aid in reintroducing her to the community. Case management is working on placement for her. Will check labs in a.m. 03/25/2020. Patient is s/p cardiac arrest, extubated and decannulated with stoma healing. Await placement per case management. 03/26/2020. Awaiting placement. 03/27/2020. Continue to work with case management for placement. Patient requir ing restraints for safety. 03/28/2020. Awaiting placement. 03/29/2020. Patient is s/p cardiac arrest, extubated and decannulated with stoma healing. Reconsulted physical therapy and speech therapy for reassessment and evaluation. Await placement per case management. 03/30/2020. Patient remains confused and in need of restraints for safety. Await placement per case management. 03/31/2020. Patient is s/p cardiac arrest, extubated and decannulated with stoma healing. Reconsulted physical therapy and speech therapy for reassessment and evaluation. Await placement per case management. Patient remains confused and in need of restraints for safety. History Interval history: No new issues overnight. Hospitalist Physical - Constitutional Vitals: Temp Pulse Resp BP Pulse Ox 98.0 F 118 H 18 142/97 99 03/30/20 23:23 03/30/20 23:23 03/30/20 23:23 03/30/20 23:23 03/30/20 23:23 General appearance: Present: no acute distress, cachectic, disheveled, other (Noncommunicative) - EENT Eyes: Present: PERRL, EOM intact ENT: hearing intact, clear oral mucosa, dentition normal - Neck Neck: Present: supple, normal ROM - Respiratory Respiratory effort: normal Respiratory: bilateral: CTA - Cardiovascular Rhythm: regular Heart Sounds: Present: S1 & S2. Absent: gallop, rub - Extremities Extremities: no ischemia, No edema, Full ROM - Abdominal General gastrointestinal: soft, non-tender, non-distended, normal bowel sounds - Integumentary Integumentary: Present: clear, warm, dry - Neurologic Neurologic: CNII-XII intact, moves all extremities HEART Score - HEART Score Troponin: Troponin T < 0.010 ng/mL (0.00-0.029) 11/22/19 23:27 Results - Labs CBC & Chem 7: 03/25/20 04:28 03/25/20 04:28 Labs: Laboratory Last Values WBC 9.0 K/mm3 (4.5-11.0) 03/25/20 04:28 RBC 3.65 M/mm3 (3.65-5.03) 03/25/20 04:28 Hgb 10.8 gm/dl (10.1-14.3) 03/25/20 04:28 Hct 32.5 % (30.3-42.9) 03/25/20 04:28 MCV 89 fl (79-97) 03/25/20 04:28 MCH 30 pg (28-32) 03/25/20 04:28 MCHC 33 % (30-34) 03/25/20 04:28 RDW 14.1 % (13.2-15.2) 03/25/20 04:28 Plt Count 423 K/mm3 (140-440) 03/25/20 04:28 Lymph % (Auto) 27.8 % (13.4-35.0) 03/06/20 03:37 [place] % (Auto) 9.1 % (0.0-7.3) H 03/06/20 03:37 Eos % (Auto) 2.8 % (0.0-4.3) 03/06/20 03:37 Baso % (Auto) 0.7 % (0.0-1.8) 03/06/20 03:37 Lymph # 2.2 K/mm3 (1.2-5.4) 03/06/20 03:37 [place] # 0.7 K/mm3 (0.0-0.8) 03/06/20 03:37 Eos # 0.2 K/mm3 (0.0-0.4) 03/06/20 03:37 Baso # 0.1 K/mm3 (0.0-0.1) 03/06/20 03:37 Add Manual Diff Complete 12/25/19 03:47 Total Counted 200 12/25/19 03:47 Seg Neutrophils % 59.6 % (40.0-70.0) 03/06/20 03:37 Seg Neuts % (Manual) 97.5 % (40.0-70.0) H 12/25/19 03:47 Band Neutrophils % 0 % 12/25/19 03:47 Lymphocytes % (Manual) 1.0 % (13.4-35.0) L 12/25/19 03:47 Reactive Lymphs % (Man) 0 % 12/25/19 03:47 Monocytes % (Manual) 1.5 % (0.0-7.3) 12/25/19 03:47 Eosinophils % (Manual) 0 % (0.0-4.3) 12/25/19 03:47 Basophils % (Manual) 0 % (0.0-1.8) 12/25/19 03:47 Metamyelocytes % 0 % 12/25/19 03:47 Myelocytes % 0 % 12/25/19 03:47 Promyelocytes % 0 % 12/25/19 03:47 Blast Cells % 0 % 12/25/19 03:47 Nucleated RBC % Not Reportable 12/25/19 03:47 Seg Neutrophils # 4.8 K/mm3 (1.8-7.7) 03/06/20 03:37 Seg Neutrophils # Man 35.3 K/mm3 (1.8-7.7) H 12/25/19 03:47 Band Neutrophils # 0.0 K/mm3 12/25/19 03:47 Lymphocytes # (Manual) 0.4 K/mm3 (1.2-5.4) L 12/25/19 03:47 Abs React Lymphs (Man) 0.0 K/mm3 12/25/19 03:47 Monocytes # (Manual) 0.5 K/mm3 (0.0-0.8) 12/25/19 03:47 Eosinophils # (Manual) 0.0 K/mm3 (0.0-0.4) 12/25/19 03:47 Basophils # (Manual) 0.0 K/mm3 (0.0-0.1) 12/25/19 03:47 Metamyelocytes # 0.0 K/mm3 12/25/19 03:47 Myelocytes # 0.0 K/mm3 12/25/19 03:47 Promyelocytes # 0.0 K/mm3 12/25/19 03:47 Blast Cells # 0.0 K/mm3 12/25/19 03:47 Pathologist Review 12/13/19 07:48 WBC Morphology Not Reportable 12/25/19 03:47 Hypersegmented Neuts Not Reportable 12/25/19 03:47 Hyposegmented Neuts Not Reportable 12/25/19 03:47 Hypogranular Neuts Not Reportable 12/25/19 03:47 Smudge Cells Not Reportable 12/25/19 03:47 Toxic Granulation Not Reportable 12/25/19 03:47 Toxic Vacuolation Not Reportable 12/25/19 03:47 Dohle Bodies Not Reportable 12/25/19 03:47 Pelger-Huet Anomaly Not Reportable 12/25/19 03:47 Dominique Rods Not Reportable 12/25/19 03:47 Platelet Estimate Consistent w auto 12/25/19 03:47 Clumped Platelets Not Reportable 12/25/19 03:47 Plt Clumps, EDTA Not Reportable 12/25/19 03:47 Large Platelets Not Reportable 12/25/19 03:47 Giant Platelets Not Reportable 12/25/19 03:47 Platelet Satelliting Not Reportable 12/25/19 03:47 Plt Morphology Comment Not Reportable 12/25/19 03:47 RBC Morphology Not Reportable 12/25/19 03:47 Dimorphic RBCs Not Reportable 12/25/19 03:47 Polychromasia Not Reportable 12/25/19 03:47 Hypochromasia Not Reportable 12/25/19 03:47 Poikilocytosis Not Reportable 12/25/19 03:47 Anisocytosis 1+ 12/25/19 03:47 Microcytosis Not Reportable 12/25/19 03:47 Macrocytosis Not Reportable 12/25/19 03:47 Spherocytes Not Reportable 12/25/19 03:47 Pappenheimer Bodies Not Reportable 12/25/19 03:47 Sickle Cells Not Reportable 12/25/19 03:47 Target Cells Not Reportable 12/25/19 03:47 Tear Drop Cells Not Reportable 12/25/19 03:47 Ovalocytes Not Reportable 12/25/19 03:47 Helmet Cells Not Reportable 12/25/19 03:47 Frias-Whitakers Bodies Not Reportable 12/25/19 03:47 [place] Rings Not Reportable 12/25/19 03:47 Jamshid Cells Not Reportable 12/25/19 03:47 Bite Cells Not Reportable 12/25/19 03:47 Crenated Cell Not Reportable 12/25/19 03:47 Elliptocytes Not Reportable 12/25/19 03:47 Acanthocytes (Spur) Not Reportable 12/25/19 03:47 Rouleaux Not Reportable 12/25/19 03:47 Hemoglobin C Crystals Not Reportable 12/25/19 03:47 Schistocytes Not Reportable 12/25/19 03:47 Malaria parasites Not Reportable 12/25/19 03:47 Gregg Bodies Not Reportable 12/25/19 03:47 Hem Pathologist Commnt No 12/25/19 03:47 PT 17.0 Sec. (12.2-14.9) H 11/23/19 03:47 INR 1.36 (0.87-1.13) H 11/23/19 03:47 APTT 128.2 Sec. (24.2-36.6) H* 11/23/19 03:47 Heparin Anti-Xa Level 0.31 U.I./ml (0.3-0.7) 11/23/19 09:03 ABG pH 7.433 pH Units (7.350-7.450) 03/08/20 13:25 ABG pCO2 40.2 mm Hg 03/08/20 13:25 ABG pO2 71.1 mm Hg (80.0-90.0) L 03/08/20 13:25 ABG HCO3 26.2 mmol/L (20.0-26.0) H 03/08/20 13:25 ABG O2 Saturation 97.0 % (95.0-99.0) 03/08/20 13:25 ABG O2 Content 11.0 (0.0-44) 03/08/20 13:25 ABG Base Excess 1.8 mmol/L (-2.0-3.0) 03/08/20 13:25 ABG Hemoglobin 8.2 gm/dl (12.0-16.0) L 03/08/20 13:25 ABG Carboxyhemoglobin 1.7 % (0.0-5.0) 03/08/20 13:25 ABG Methemoglobin 0.5 % (0.0-1.5) 03/08/20 13:25 Oxyhemoglobin 94.8 % (95.0-99.0) L 03/08/20 13:25 FiO2 21 % 03/08/20 13:25 Sodium 138 mmol/L (137-145) 03/25/20 04:28 Potassium 4.2 mmol/L (3.6-5.0) 03/25/20 04:28 Chloride 99.3 mmol/L (98-107) 03/25/20 04:28 Carbon Dioxide 28 mmol/L (22-30) 03/25/20 04:28 Anion Gap 15 mmol/L 03/25/20 04:28 BUN 23 mg/dL (7-17) H 03/25/20 04:28 Creatinine 0.5 mg/dL (0.7-1.2) L 03/25/20 04:28 Estimated GFR > 60 ml/min 03/25/20 04:28 BUN/Creatinine Ratio 46 % 03/25/20 04:28 Glucose 121 mg/dL (65-100) H 03/25/20 04:28 POC Glucose 92 (70-105) 03/31/20 05:27 Lactic Acid 1.80 mmol/L (0.7-2.0) 11/25/19 05:05 Calcium 10.3 mg/dL (8.4-10.2) H 03/25/20 04:28 Ionized Calcium 4.5 mg/dL (4.8-5.6) L 11/23/19 06:32 Phosphorus 4.20 mg/dL (2.5-4.5) D 11/28/19 08:59 Magnesium 1.90 mg/dL (1.7-2.3) 02/28/20 03:40 Total Bilirubin 0.40 mg/dL (0.1-1.2) 12/13/19 07:48 AST 27 units/L (5-40) 12/13/19 07:48 ALT 26 units/L (7-56) 12/13/19 07:48 Alkaline Phosphatase 316 units/L (35-129) H 12/13/19 07:48 Ammonia 42.0 umol/L (25-60) 11/29/19 13:41 Total Creatine Kinase 139 units/L (30-135) H 11/22/19 23:27 CK-MB (CK-2) 8.3 ng/mL (0.0-4.0) H 11/22/19 23:27 CK-MB (CK-2) Rel Index 5.9 (0-4) H 11/22/19 23:27 Troponin T < 0.010 ng/mL (0.00-0.029) 11/22/19 23:27 Total Protein 6.8 g/dL (6.3-8.2) 12/13/19 07:48 Albumin 2.4 g/dL (3.9-5) L 12/13/19 07:48 Albumin/Globulin Ratio 0.5 % 12/13/19 07:48 Lipase 18 units/L (13-60) 11/23/19 00:34 Procalcitonin 1.09 ng/mL (<0.15) 11/23/19 04:53 TSH 1.010 mlU/mL (0.270-4.200) 02/12/20 07:36 Free T4 1.08 ng/dL (0.76-1.46) 02/12/20 07:36 Urine Color Yellow (Yellow) 12/16/19 Unknown Urine Turbidity Slightly-cloudy (Clear) 12/16/19 Unknown Urine pH 5.0 (5.0-7.0) 12/16/19 Unknown Ur Specific Gray 1.018 (1.003-1.030) 12/16/19 Unknown Urine Protein 30 mg/dl mg/dL (Negative) 12/16/19 Unknown Urine Glucose (UA) Neg mg/dL (Negative) 12/16/19 Unknown Urine Ketones Neg mg/dL (Negative) 12/16/19 Unknown Urine Blood Sm (Negative) 12/16/19 Unknown Urine Nitrite Neg (Negative) 12/16/19 Unknown Urine Bilirubin Neg (Negative) 12/16/19 Unknown Urine Urobilinogen < 2.0 mg/dL (<2.0) 12/16/19 Unknown Ur Leukocyte Esterase Neg (Negative) 12/16/19 Unknown Urine WBC (Auto) 6.0 /HPF (0.0-6.0) 12/16/19 Unknown Urine RBC (Auto) 9.0 /HPF (0.0-6.0) 12/16/19 Unknown U Epithel Cells (Auto) < 1.0 /HPF (0-13.0) 12/16/19 Unknown Urine Bacteria (Auto) 2+ /HPF (Negative) 11/22/19 23:17 Hyaline Casts 3 /LPF 12/16/19 Unknown Granular Casts 3 /LPF 12/16/19 Unknown Urine Mucus Few /HPF 12/16/19 Unknown Vancomycin Trough 33.8 ug/mL (5.0-20.0) H 12/21/19 08:56 Random Vancomycin 16.2 ug/mL (0-40.0) 12/24/19 04:31 Salicylates < 0.3 mg/dL (2.8-20.0) L 11/22/19 23:27 Urine Opiates Screen Presumptive negative 11/22/19 23:17 Urine Methadone Screen Presumptive negative 11/22/19 23:17 Acetaminophen < 5.0 ug/mL (10.0-30.0) L 11/22/19 23:27 Ur Barbiturates Screen Presumptive negative 11/22/19 23:17 Ur Phencyclidine Scrn Presumptive negative 11/22/19 23:17 Ur Amphetamines Screen Presumptive negative 11/22/19 23:17 U Benzodiazepines Scrn Presumptive negative 11/22/19 23:17 Urine Cocaine Screen Presumptive negative 11/22/19 23:17 U Marijuana (THC) Screen Presumptive negative 11/22/19 23:17 Drugs of Abuse Note Disclamer 11/22/19 23:17 Plasma/Serum Alcohol 0.08 % (0-0.07) H 11/22/19 23:27 Coronavirus (PCR) Negative (Negative) 02/05/20 07:50 Hepatitis A IgM Ab Non-reactive (NonReactive) 11/23/19 01:19 Hep Bs Antigen Non-reactive (Negative) 11/23/19 01:19 Hep B Core IgM Ab Non-reactive (NonReactive) 11/23/19 01:19 Hepatitis C Antibody Non-reactive (NonReactive) 11/23/19 01:19 Blood Type O POSITIVE 12/21/19 14:54 Antibody Screen Negative 12/21/19 14:54 Crossmatch See Detail 12/21/19 14:54 - Diagnostic Impressions Diagnostic Impressions: Echocardiogram 11/23/19 03:58 Transthoracic Echocardiogram Indication: Cardiac arrest BP: 131/89 HR: 115 Conclusions *The study quality is technically difficult. *Global left ventricular wall motion and contractility are within normal limits. *The estimated ejection fraction is 55-60%. *Abnormal left ventricular diastolic filling is observed, consistent with impaired relaxation. *There is no pericardial effusion. Findings Procedure Info: The study quality is technically difficult. The study was technically limited due to the patient's inability to lay in the left lateral decubitus position. Left Ventricle: The left ventricular chamber size is normal. There is no left ventricular hypertrophy. Global left ventricular wall motion and contractility are within normal limits. Global left ventricular systolic function is normal. The estimated ejection fraction is 55-60%. Abnormal left ventricular diastolic filling is observed, consistent with impaired relaxation. Left Atrium: The left atrial chamber size is normal. Aortic Valve: The aortic valve leaflets are mildly thickened. Mitral Valve: The mitral valve leaflets are mildly thickened. There is no evidence of mitral regurgitation. Tricuspid Valve: The tricuspid valve leaflets are normal. There is trace tricuspid regurgitation. The right ventricular systolic pressure is calculated at 33 mmHg. Pulmonic Valve: The pulmonic valve appears normal. Pericardium: The pericardium appears normal. There is no pericardial effusion. Aorta: The aorta appears normal. Venous: The inferior vena cava appears normal in size. Measurements Chambers 2D Name Value Normal Range IVSd (2D) 0.94 cm (0.6 - 1.1) LVPWd (2D) 0.81 cm (0.6 - 1.1) LVIDd (2D) 3.6 cm (3.7 - 5.6) LVIDs (2D) 2.27 cm (2 - 3.8) LV FS (2D) 36.93 % - EF Teichholz (2D) 67.76 % - Ao root diameter (2D) 3.03 cm (2 - 3.7) Volumes/Mass Name Value Normal Range LA ESV SP 4CH (A/L) 16.89 ml - LA ESV SP 4CH (MOD) 15.52 ml - Diastolic/Systolic Function Name Value Normal Range MV E-wave Vmax 0.55 m/sec - MV deceleration time 200.89 msec - MV A-wave Vmax 0.68 m/sec - MV E:A ratio 0.82 ratio - Aortic Valve Name Value Normal Range AV Vmax 1.1 m/sec - AV VTI 15.9 cm - AV peak gradient 4.86 mmHg - AV mean gradient 2.59 mmHg - LVOT diameter 2 cm - LVOT Vmax 1.03 m/sec - LVOT VTI 15.87 cm - LVOT peak gradient 4.24 mmHg - LVOT mean gradient 2.41 mmHg - SV LVOT 49.77 ml - JOSÉ MIGUEL (continuity Vmax) 2.93 cm2 - JOSÉ MIGUEL (continuity VTI) 3.13 cm2 - Tricuspid Valve Name Value Normal Range TR Vmax 2.74 m/sec - TR peak gradient 303 mmHg - RAP 3 mmHg - RVSP 33 mmHg - IVC diameter 1.77 cm (1.2 - 2.3) Pulmonic Valve/Qp:Qs Name Value Normal Range PV Vmax 0.77 m/sec - PV peak gradient 2.4 mmHg - PV acceleration time 114.18 msec - Echocardiogram Limited Views 12/17/19 14:53 Transthoracic Echocardiogram Indication: R/O Vegetations BP: 144/83 HR: 133 Conclusions *Global left ventricular systolic function is mildly decreased. *The estimated ejection fraction is 45-50%. *A trivial pericardial effusion is visualized. Findings Left Ventricle: The left ventricular chamber size is normal. Global left ventricular systolic function is mildly decreased. The estimated ejection fraction is 45-50%. Left Atrium: The left atrial chamber size is normal. Right Ventricle: The right ventricular cavity size is normal. Right Atrium: The right atrial cavity size is normal. Aortic Valve: The aortic valve is not well visualized. There is no evidence of aortic regurgitation. Mitral Valve: The mitral valve leaflets are mildly thickened. There is trace of mitral regurgitation. Tricuspid Valve: The tricuspid valve leaflets are mildly thickened. There is trace tricuspid regurgitation. The right ventricular systolic pressure is calculated at 29 mmHg. Pulmonic Valve: The pulmonic valve is not well visualized. There is no evidence of pulmonic regurgitation. Pericardium: A trivial pericardial effusion is visualized. Aorta: There is no dilatation of the ascending aorta. There is no dilatation of the aortic root. Venous: The inferior vena cava appears normal in size. There is a greater than 50% respiratory change in the inferior vena cava dimension. Measurements Chambers 2D Name Value Normal Range IVSd (2D) 0.83 cm (0.6 - 1.1) LVPWd (2D) 0.98 cm (0.6 - 1.1) LVIDd (2D) 3.71 cm (3.7 - 5.6) LVIDs (2D) 2.93 cm (2 - 3.8) LV FS (2D) 21.12 % - EF Teichholz (2D) 43.71 % - Ao root diameter (2D) 3.02 cm (2 - 3.7) Volumes/Mass Name Value Normal Range LA ESV SP 4CH (A/L) 36.8 ml - LA ESV SP 2CH (A/L) 45.89 ml - LA ESV BP (A/L) 42.35 ml - LA ESV BP (A/L) index 26.63 ml/m2 - LA ESV SP 4CH (MOD) 34.42 ml - LA ESV SP 2CH (MOD) 44.21 ml - LA ESV BP (MOD) 39.82 ml - LA ESV BP (MOD) index 25.05 ml/m2 - Aortic Valve Name Value Normal Range LVOT diameter 1.63 cm - Tricuspid Valve Name Value Normal Range TR Vmax 2.56 m/sec - TR peak gradient 26 mmHg - RAP 3 mmHg - RVSP 29 mmHg - IVC diameter 1.83 cm (1.2 - 2.3) Dela Cruz/IV: Voiding Method Incontinent IV Catheter Type [Forearm] Peripheral IV IV Catheter Type [Left Forearm INT / Saline Lock ] IV Catheter Type [Right INT / Saline Lock Antecubital] IV Catheter Type [Right Hand] INT / Saline Lock IV Catheter Type [Right Wrist] Peripheral IV IV Catheter Type [Left Wrist] Peripheral IV IV Catheter Type [Left Peripheral IV Antecubital] IV Catheter Type [Right INT / Saline Lock Forearm] IV Catheter Type [Left Hand] INT / Saline Lock Active Medications - Current Medications Current Medications: Generic Name Dose Route Start Last Admin Trade Name Freq PRN Reason Stop Dose Admin Acetaminophen 650 mg 12/06/19 10:25 03/25/20 00:17 Tylenol FEEDTUBE 650 mg Q6H PRN Administration TEMP >/=100.3 Albuterol 2.5 mg 03/25/20 19:25 Proventil IH Q4HRT PRN Shortness Of Breath Albuterol/Ipratropium 1 ampul 03/30/20 20:00 03/30/20 20:53 Duoneb *Not For Prn Use* IH Not Given BIDRT LUCHO Lipase/Protease/Amylase 1 each 11/23/19 11:50 Pancreaze 10,500 Unit FEEDTUBE PRN PRN Use w/ sod bicarb for FT Bisacodyl 10 mg 02/06/20 13:[address] QDAY PRN Constipation unrelieved by MOM Enoxaparin Sodium 40 mg 03/07/20 22:00 03/30/20 21:47 Enoxaparin SUB-Q 40 mg QDAY@2200 LUCHO Administration Glycopyrrolate 2 mg 12/31/19 20:00 03/30/20 22:39 Robinul PO Not Given TID [facility] Haloperidol Lactate 5 mg 03/05/20 09:22 03/25/20 00:17 Haldol IM 5 mg Q6H PRN Administration Agitation Hydralazine HCl 10 mg 11/24/19 00:45 03/03/20 05:57 Apresoline IV 10 mg Q6H PRN Administration SBP > 160 Hydroxyzine Pamoate 25 mg 12/06/19 10:00 03/30/20 21:47 Vistaril PO 25 mg BID LUCHO Administration Lansoprazole 30 mg 11/27/19 10:00 03/30/20 10:23 Prevacid Solutab FEEDTUBE 30 mg QDAY LUCHO Administration Levetiracetam 500 mg 11/29/19 10:00 03/30/20 21:47 Keppra PO 500 mg BID LUCHO Administration Mirtazapine 30 mg 12/06/19 10:00 03/30/20 10:24 Remeron PO 30 mg DAILY LUCHO Administration Nicotine 21 mg 02/16/20 13:00 03/30/20 10:24 Habitrol TD 21 mg QDAY LUCHO Administration Ondansetron HCl 4 mg 12/10/19 07:53 02/25/20 02:51 Zofran IV 4 mg Q4H PRN Administration Nausea And Vomiting Polyethylene Glycol 17 gm 02/06/20 13:57 Miralax 3350 PO QDAY PRN Constipation Quetiapine Fumarate 100 mg 03/06/20 10:00 03/30/20 21:47 Seroquel FEEDTUBE 100 mg BID LUCHO Administration Scopolamine 1 each 02/08/20 15:00 03/30/20 10:24 Transderm-Scop TD 1 each Q3D LUCHO Administration Sertraline HCl 25 mg 01/01/20 10:00 03/30/20 10:23 Zoloft PO 25 mg QDAY LUCHO Administration Simple Syrup 15 ml 11/23/19 11:50 Simple Syrup FEEDTUBE PRN PRN Hypoglycemia BG<70 Simple Syrup 30 ml 11/23/19 11:50 Simple Syrup FEEDTUBE PRN PRN Hypoglycemia Sodium Bicarbonate 325 mg 11/23/19 11:50 Sodium Bicarbonate FEEDTUBE PRN PRN For Clogged Feeding Tube Nutrition/Malnutrition Assess - Dietary Evaluation Nutrition/Malnutrition Findings: Nutrition Notes Start: 11/23/19 11:29 Freq: Status: Active Protocol: Document 03/27/20 10:42 EVELIA (Rec: 03/27/20 10:48 EVELIA [email or web address]) Nutrition Notes Initial or Follow up Reassessment Other Pertinent Diagnosis s/p Cardiac arrest, acute metabolic encephalopathy Current Diet Jevity 1.2 at 60ml/hr Labs/Tests Reviewed Pertinent Medications Reviewed Height 5 ft 6 in Weight 49 kg Martin Body Weight (kg) 59.09 BMI 17.4 Subjective/Other Information RD spoke with RN via telephone this am (10:39). Pt tolerating TF at goal rate. Pt receiving Osmolite 1.5 at this time, however, Jevity 1.2 back in stock today. Pt awaiting placement. Burn Absent Trauma Absent #2 Nutrition Diagnosis Malnutrition Diagnosis Progress(for reassessment Continues documentation) #1 Nutrition Diagnosis Inadequate oral intake Diagnosis Progress(for reassessment Continues documentation) Is patient on ventilator? No Is Patient Ambulatory and/or Out of Bed No REE-([facility]-confined to bed) 1326.792 Kcal/Kg value to use for calculation 35 Approximate Energy Requirements Using 1715 kcal/Kg Calculation Used for Recommendations Kcal/kg Additional Notes Pro needs 1.2-1.5g/k-74g/ day Fluid needs 1ml/kcal Nutrition Intervention Nutrition Support: Change TF back to Jevity 1.2 at 60ml/hr Flush 100ml q4h Kcal 1,728 Protein (gm) 80 Fluid (mL) 1,162 Fiber (gm) 26 Goal #1 TF tolerance Goal #2 TF to meet 100% energy and pro needs Goal #3 Wt maintenance and/or gain Follow-Up By: 04/03/20 Additional Comments F/U: stable TF, wt
[2020-03-31] MEDS: IPRATROPIUM/ALBUTEROL SULFATE 3 ML AMPUL.NEB IH SCH ×2 (09:12→21:17)
[2020-03-31] MEDS: GLYCOPYRROLATE 1 MG TAB PO SCH ×3 (10:30→21:25)
[2020-03-31] MEDS: QUEtiapine 100 MG TAB FEEDTUBE SCH ×2 (10:35→22:10)
[2020-03-31] MEDS: SERTRALINE 50 MG TAB PO SCH (10:35)
[2020-03-31] MEDS: LANSOPRAZOLE 30 MG SOLUTAB FEEDTUBE SCH (10:35)
[2020-03-31] MEDS: MIRTAZAPINE 30 MG TAB PO SCH (10:35)
[2020-03-31] MEDS: levETIRAcetam 500 MG/5 ML ORAL LIQD PO SCH ×2 (10:35→22:10)
[2020-03-31] MEDS: NICOTINE 21 MG/24 HR PATCH TD SCH (10:36)
[2020-03-31] MEDS: hydrOXYzine PAMOATE 25 MG CAP PO SCH ×2 (10:36→22:10)
[2020-03-31] MEDS: ENOXAPARIN 40 MG/0.4 ML INJ SUB-Q SCH (22:10)
[2020-04-01] MEDS: HALOPERIDOL LACTATE 5 MG/1 ML INJ IM PRN ×2 (07:32→15:57)
[2020-04-01] MEDS: GLYCOPYRROLATE 1 MG TAB PO SCH ×3 (09:54→21:30)
[2020-04-01] MEDS: LANSOPRAZOLE 30 MG SOLUTAB FEEDTUBE SCH (09:55)
[2020-04-01] MEDS: hydrOXYzine PAMOATE 25 MG CAP PO SCH ×2 (09:55→22:13)
[2020-04-01] MEDS: NICOTINE 21 MG/24 HR PATCH TD SCH (09:55)
[2020-04-01] MEDS: MIRTAZAPINE 30 MG TAB PO SCH (09:55)
[2020-04-01] MEDS: levETIRAcetam 500 MG/5 ML ORAL LIQD PO SCH ×2 (09:58→22:13)
[2020-04-01] MEDS: SERTRALINE 50 MG TAB PO SCH (09:58)
[2020-04-01] MEDS: QUEtiapine 100 MG TAB FEEDTUBE SCH ×2 (10:00→22:13)
--- NOTE | 2020-04-01 10:28 | Progress Note ---
Assessment and Plan Assessment and plan: 54-year-old female with a past medical history of Hypertension, Depression, Tobacco use Disorder, Alcohol use Disorder as confirmed by Daughter and pt's mother presents to the hospital status post cardiac arrest at home. EMS found pt in [place]. They were unable to intubate patient with a ET tube because she was clenching down therefore Joe airway placed. Per the ED physician who evaluated pt, Patient presented with a pulse, intermittent respirations, and bagging support via Joe airway with O2 sat of 100%. Accu-Chek of 71 obtained by EMS. She was intubated in the ER and called for admission. Following admission patient was diagnosed with anoxic brain injury, sepsis with MRSA bacteremia and MSSA pneumonia, alcoholic liver disease. Family member initially wished for full code then changed to DNR, patient treated with IV antibiotics for sepsis, status post trach and PEG on 12/13/19. Weaned off from the vent and put on T- piece. Patient is uninsured, waiting for placement, guarded prognosis. Anoxic brain injury: suspected CT head: No acute abnormality. EEG ordered showed Generalized slowing. No seizures or epileptiform activity. -Patient now alert and awake responding appropriately -As needed haldol for agitation Acute Respiratory failure status post trach and PEG 12/13/2019 -due to MSSA PNA, on T-piece - CTA was done and negative for PE, - Echo quality is poor, showed diastolic dysfunction - continue weaning as tolerated -Continue appropriate and adequate tracheostomy care Tracheostomy site ulceration -Continue appropriate wound management try to keep area dry. Anemia, microcytic - Status post 3 units PRBC transfusion, H&H low stable Acute metabolic encephalopathy/toxic encephalopathy due to the above - cont supportive care Hyperammonemia - likely from liver disease related to EtOH abuse - Patient had elevated ammonia level and treated with lactulose Metabolic Acidosis -Alcohol ketoacidosis vs hypoprofusion -Continue to monitor ELevated LFTs, stable now - due to ischemic hepatitis. Leucocytosis with sepsis - Source MRSA bacteremia and MSSA pneumonia. UA showed pyuria. RUQ US showed no ascites. - Repeat TTE negative for vegetation. Completed 7 days of Ceftriaxone on 11/29/2019. -Treated with Abx vancomycin 1 gm IV q 12 hour total 2 week till 12/30/2019 Severe protein calorie malnutrition Dietitian following MSSA pneumonia: Status post vancomycin till 12/30/2019 Alcohol use Disorder - given ongoing Alcohol use almost daily, s/p IV Thiamine - monitor Severe hypokalemia -Repleted Seizure disorder: treated with Keppra H. Influenzae, tracheobronchitis, treated with abx Moderate to severe fecal impaction - will add stool softner DNR CODE STATUS Awaiting placement History Interval history: I have seen the patient at the bedside this morning Patient's chart medications, tests reviewed Patient is alert and awake responding to simple questions appropriately Not in acute distress. No new complaints Vital signs reviewed Hospitalist Physical - Constitutional Vitals: Temp Pulse Resp BP Pulse Ox 97.6 F 113 H 18 117/87 87 04/01/20 08:00 04/01/20 08:00 04/01/20 08:00 04/01/20 08:00 03/31/20 23:26 General appearance: Present: no acute distress, cachectic, disheveled, other (Noncommunicative) - EENT Eyes: Present: PERRL, EOM intact - Neck Neck: Present: supple, normal ROM - Respiratory Respiratory effort: normal Respiratory: bilateral: diminished, rhonchi, negative: rales, wheezing - Cardiovascular Rhythm: regular Heart Sounds: Present: S1 & S2 - Extremities Extremities: no ischemia, No edema - Abdominal General gastrointestinal: soft, non-tender, non-distended, normal bowel sounds - Integumentary Integumentary: Present: clear, warm - Psychiatric Psychiatric: appropriate mood/affect, cooperative - Neurologic Neurologic: moves all extremities HEART Score - HEART Score Troponin: Troponin T < 0.010 ng/mL (0.00-0.029) 11/22/19 23:27 Results - Labs CBC & Chem 7: 03/25/20 04:28 03/25/20 04:28 Labs: Laboratory Last Values WBC 9.0 K/mm3 (4.5-11.0) 03/25/20 04:28 RBC 3.65 M/mm3 (3.65-5.03) 03/25/20 04:28 Hgb 10.8 gm/dl (10.1-14.3) 03/25/20 04:28 Hct 32.5 % (30.3-42.9) 03/25/20 04:28 MCV 89 fl (79-97) 03/25/20 04:28 MCH 30 pg (28-32) 03/25/20 04:28 MCHC 33 % (30-34) 03/25/20 04:28 RDW 14.1 % (13.2-15.2) 03/25/20 04:28 Plt Count 423 K/mm3 (140-440) 03/25/20 04:28 Lymph % (Auto) 27.8 % (13.4-35.0) 03/06/20 03:37 [place] % (Auto) 9.1 % (0.0-7.3) H 03/06/20 03:37 Eos % (Auto) 2.8 % (0.0-4.3) 03/06/20 03:37 Baso % (Auto) 0.7 % (0.0-1.8) 03/06/20 03:37 Lymph # 2.2 K/mm3 (1.2-5.4) 03/06/20 03:37 [place] # 0.7 K/mm3 (0.0-0.8) 03/06/20 03:37 Eos # 0.2 K/mm3 (0.0-0.4) 03/06/20 03:37 Baso # 0.1 K/mm3 (0.0-0.1) 03/06/20 03:37 Add Manual Diff Complete 12/25/19 03:47 Total Counted 200 12/25/19 03:47 Seg Neutrophils % 59.6 % (40.0-70.0) 03/06/20 03:37 Seg Neuts % (Manual) 97.5 % (40.0-70.0) H 12/25/19 03:47 Band Neutrophils % 0 % 12/25/19 03:47 Lymphocytes % (Manual) 1.0 % (13.4-35.0) L 12/25/19 03:47 Reactive Lymphs % (Man) 0 % 12/25/19 03:47 Monocytes % (Manual) 1.5 % (0.0-7.3) 12/25/19 03:47 Eosinophils % (Manual) 0 % (0.0-4.3) 12/25/19 03:47 Basophils % (Manual) 0 % (0.0-1.8) 12/25/19 03:47 Metamyelocytes % 0 % 12/25/19 03:47 Myelocytes % 0 % 12/25/19 03:47 Promyelocytes % 0 % 12/25/19 03:47 Blast Cells % 0 % 12/25/19 03:47 Nucleated RBC % Not Reportable 12/25/19 03:47 Seg Neutrophils # 4.8 K/mm3 (1.8-7.7) 03/06/20 03:37 Seg Neutrophils # Man 35.3 K/mm3 (1.8-7.7) H 12/25/19 03:47 Band Neutrophils # 0.0 K/mm3 12/25/19 03:47 Lymphocytes # (Manual) 0.4 K/mm3 (1.2-5.4) L 12/25/19 03:47 Abs React Lymphs (Man) 0.0 K/mm3 12/25/19 03:47 Monocytes # (Manual) 0.5 K/mm3 (0.0-0.8) 12/25/19 03:47 Eosinophils # (Manual) 0.0 K/mm3 (0.0-0.4) 12/25/19 03:47 Basophils # (Manual) 0.0 K/mm3 (0.0-0.1) 12/25/19 03:47 Metamyelocytes # 0.0 K/mm3 12/25/19 03:47 Myelocytes # 0.0 K/mm3 12/25/19 03:47 Promyelocytes # 0.0 K/mm3 12/25/19 03:47 Blast Cells # 0.0 K/mm3 12/25/19 03:47 Pathologist Review 12/13/19 07:48 WBC Morphology Not Reportable 12/25/19 03:47 Hypersegmented Neuts Not Reportable 12/25/19 03:47 Hyposegmented Neuts Not Reportable 12/25/19 03:47 Hypogranular Neuts Not Reportable 12/25/19 03:47 Smudge Cells Not Reportable 12/25/19 03:47 Toxic Granulation Not Reportable 12/25/19 03:47 Toxic Vacuolation Not Reportable 12/25/19 03:47 Dohle Bodies Not Reportable 12/25/19 03:47 Pelger-Huet Anomaly Not Reportable 12/25/19 03:47 Dominique Rods Not Reportable 12/25/19 03:47 Platelet Estimate Consistent w auto 12/25/19 03:47 Clumped Platelets Not Reportable 12/25/19 03:47 Plt Clumps, EDTA Not Reportable 12/25/19 03:47 Large Platelets Not Reportable 12/25/19 03:47 Giant Platelets Not Reportable 12/25/19 03:47 Platelet Satelliting Not Reportable 12/25/19 03:47 Plt Morphology Comment Not Reportable 12/25/19 03:47 RBC Morphology Not Reportable 12/25/19 03:47 Dimorphic RBCs Not Reportable 12/25/19 03:47 Polychromasia Not Reportable 12/25/19 03:47 Hypochromasia Not Reportable 12/25/19 03:47 Poikilocytosis Not Reportable 12/25/19 03:47 Anisocytosis 1+ 12/25/19 03:47 Microcytosis Not Reportable 12/25/19 03:47 Macrocytosis Not Reportable 12/25/19 03:47 Spherocytes Not Reportable 12/25/19 03:47 Pappenheimer Bodies Not Reportable 12/25/19 03:47 Sickle Cells Not Reportable 12/25/19 03:47 Target Cells Not Reportable 12/25/19 03:47 Tear Drop Cells Not Reportable 12/25/19 03:47 Ovalocytes Not Reportable 12/25/19 03:47 Helmet Cells Not Reportable 12/25/19 03:47 Frias-Crown Bodies Not Reportable 12/25/19 03:47 Weatherly Rings Not Reportable 12/25/19 03:47 Jamshid Cells Not Reportable 12/25/19 03:47 Bite Cells Not Reportable 12/25/19 03:47 Crenated Cell Not Reportable 12/25/19 03:47 Elliptocytes Not Reportable 12/25/19 03:47 Acanthocytes (Spur) Not Reportable 12/25/19 03:47 Rouleaux Not Reportable 12/25/19 03:47 Hemoglobin C Crystals Not Reportable 12/25/19 03:47 Schistocytes Not Reportable 12/25/19 03:47 Malaria parasites Not Reportable 12/25/19 03:47 Gregg Bodies Not Reportable 12/25/19 03:47 Hem Pathologist Commnt No 12/25/19 03:47 PT 17.0 Sec. (12.2-14.9) H 11/23/19 03:47 INR 1.36 (0.87-1.13) H 11/23/19 03:47 APTT 128.2 Sec. (24.2-36.6) H* 11/23/19 03:47 Heparin Anti-Xa Level 0.31 U.I./ml (0.3-0.7) 11/23/19 09:03 ABG pH 7.433 pH Units (7.350-7.450) 03/08/20 13:25 ABG pCO2 40.2 mm Hg 03/08/20 13:25 ABG pO2 71.1 mm Hg (80.0-90.0) L 03/08/20 13:25 ABG HCO3 26.2 mmol/L (20.0-26.0) H 03/08/20 13:25 ABG O2 Saturation 97.0 % (95.0-99.0) 03/08/20 13:25 ABG O2 Content 11.0 (0.0-44) 03/08/20 13:25 ABG Base Excess 1.8 mmol/L (-2.0-3.0) 03/08/20 13:25 ABG Hemoglobin 8.2 gm/dl (12.0-16.0) L 03/08/20 13:25 ABG Carboxyhemoglobin 1.7 % (0.0-5.0) 03/08/20 13:25 ABG Methemoglobin 0.5 % (0.0-1.5) 03/08/20 13:25 Oxyhemoglobin 94.8 % (95.0-99.0) L 03/08/20 13:25 FiO2 21 % 03/08/20 13:25 Sodium 138 mmol/L (137-145) 03/25/20 04:28 Potassium 4.2 mmol/L (3.6-5.0) 03/25/20 04:28 Chloride 99.3 mmol/L (98-107) 03/25/20 04:28 Carbon Dioxide 28 mmol/L (22-30) 03/25/20 04:28 Anion Gap 15 mmol/L 03/25/20 04:28 BUN 23 mg/dL (7-17) H 03/25/20 04:28 Creatinine 0.5 mg/dL (0.7-1.2) L 03/25/20 04:28 Estimated GFR > 60 ml/min 03/25/20 04:28 BUN/Creatinine Ratio 46 % 03/25/20 04:28 Glucose 121 mg/dL (65-100) H 03/25/20 04:28 POC Glucose 84 (70-105) 03/31/20 21:23 Lactic Acid 1.80 mmol/L (0.7-2.0) 11/25/19 05:05 Calcium 10.3 mg/dL (8.4-10.2) H 03/25/20 04:28 Ionized Calcium 4.5 mg/dL (4.8-5.6) L 11/23/19 06:32 Phosphorus 4.20 mg/dL (2.5-4.5) D 11/28/19 08:59 Magnesium 1.90 mg/dL (1.7-2.3) 02/28/20 03:40 Total Bilirubin 0.40 mg/dL (0.1-1.2) 12/13/19 07:48 AST 27 units/L (5-40) 12/13/19 07:48 ALT 26 units/L (7-56) 12/13/19 07:48 Alkaline Phosphatase 316 units/L (35-129) H 12/13/19 07:48 Ammonia 42.0 umol/L (25-60) 11/29/19 13:41 Total Creatine Kinase 139 units/L (30-135) H 11/22/19 23:27 CK-MB (CK-2) 8.3 ng/mL (0.0-4.0) H 11/22/19 23:27 CK-MB (CK-2) Rel Index 5.9 (0-4) H 11/22/19 23:27 Troponin T < 0.010 ng/mL (0.00-0.029) 11/22/19 23:27 Total Protein 6.8 g/dL (6.3-8.2) 12/13/19 07:48 Albumin 2.4 g/dL (3.9-5) L 12/13/19 07:48 Albumin/Globulin Ratio 0.5 % 12/13/19 07:48 Lipase 18 units/L (13-60) 11/23/19 00:34 Procalcitonin 1.09 ng/mL (<0.15) 11/23/19 04:53 TSH 1.010 mlU/mL (0.270-4.200) 02/12/20 07:36 Free T4 1.08 ng/dL (0.76-1.46) 02/12/20 07:36 Urine Color Yellow (Yellow) 12/16/19 Unknown Urine Turbidity Slightly-cloudy (Clear) 12/16/19 Unknown Urine pH 5.0 (5.0-7.0) 12/16/19 Unknown Ur Specific [place] 1.018 (1.003-1.030) 12/16/19 Unknown Urine Protein 30 mg/dl mg/dL (Negative) 12/16/19 Unknown Urine Glucose (UA) Neg mg/dL (Negative) 12/16/19 Unknown Urine Ketones Neg mg/dL (Negative) 12/16/19 Unknown Urine Blood Sm (Negative) 12/16/19 Unknown Urine Nitrite Neg (Negative) 12/16/19 Unknown Urine Bilirubin Neg (Negative) 12/16/19 Unknown Urine Urobilinogen < 2.0 mg/dL (<2.0) 12/16/19 Unknown Ur Leukocyte Esterase Neg (Negative) 12/16/19 Unknown Urine WBC (Auto) 6.0 /HPF (0.0-6.0) 12/16/19 Unknown Urine RBC (Auto) 9.0 /HPF (0.0-6.0) 12/16/19 Unknown U Epithel Cells (Auto) < 1.0 /HPF (0-13.0) 12/16/19 Unknown Urine Bacteria (Auto) 2+ /HPF (Negative) 11/22/19 23:17 Hyaline Casts 3 /LPF 12/16/19 Unknown Granular Casts 3 /LPF 12/16/19 Unknown Urine Mucus Few /HPF 12/16/19 Unknown Vancomycin Trough 33.8 ug/mL (5.0-20.0) H 12/21/19 08:56 Random Vancomycin 16.2 ug/mL (0-40.0) 12/24/19 04:31 Salicylates < 0.3 mg/dL (2.8-20.0) L 11/22/19 23:27 Urine Opiates Screen Presumptive negative 11/22/19 23:17 Urine Methadone Screen Presumptive negative 11/22/19 23:17 Acetaminophen < 5.0 ug/mL (10.0-30.0) L 11/22/19 23:27 Ur Barbiturates Screen Presumptive negative 11/22/19 23:17 Ur Phencyclidine Scrn Presumptive negative 11/22/19 23:17 Ur Amphetamines Screen Presumptive negative 11/22/19 23:17 U Benzodiazepines Scrn Presumptive negative 11/22/19 23:17 Urine Cocaine Screen Presumptive negative 11/22/19 23:17 U Marijuana (THC) Screen Presumptive negative 11/22/19 23:17 Drugs of Abuse Note Disclamer 11/22/19 23:17 Plasma/Serum Alcohol 0.08 % (0-0.07) H 11/22/19 23:27 Coronavirus (PCR) Negative (Negative) 02/05/20 07:50 Hepatitis A IgM Ab Non-reactive (NonReactive) 11/23/19 01:19 Hep Bs Antigen Non-reactive (Negative) 11/23/19 01:19 Hep B Core IgM Ab Non-reactive (NonReactive) 11/23/19 01:19 Hepatitis C Antibody Non-reactive (NonReactive) 11/23/19 01:19 Blood Type O POSITIVE 12/21/19 14:54 Antibody Screen Negative 12/21/19 14:54 Crossmatch See Detail 12/21/19 14:54 - Diagnostic Impressions Diagnostic Impressions: Echocardiogram 11/23/19 03:58 Transthoracic Echocardiogram Indication: Cardiac arrest BP: 131/89 HR: 115 Conclusions *The study quality is technically difficult. *Global left ventricular wall motion and contractility are within normal limits. *The estimated ejection fraction is 55-60%. *Abnormal left ventricular diastolic filling is observed, consistent with impaired relaxation. *There is no pericardial effusion. Findings Procedure Info: The study quality is technically difficult. The study was technically limited due to the patient's inability to lay in the left lateral decubitus position. Left Ventricle: The left ventricular chamber size is normal. There is no left ventricular hypertrophy. Global left ventricular wall motion and contractility are within normal limits. Global left ventricular systolic function is normal. The estimated ejection fraction is 55-60%. Abnormal left ventricular diastolic filling is observed, consistent with impaired relaxation. Left Atrium: The left atrial chamber size is normal. Aortic Valve: The aortic valve leaflets are mildly thickened. Mitral Valve: The mitral valve leaflets are mildly thickened. There is no evidence of mitral regurgitation. Tricuspid Valve: The tricuspid valve leaflets are normal. There is trace tricuspid regurgitation. The right ventricular systolic pressure is calculated at 33 mmHg. Pulmonic Valve: The pulmonic valve appears normal. Pericardium: The pericardium appears normal. There is no pericardial effusion. Aorta: The aorta appears normal. Venous: The inferior vena cava appears normal in size. Measurements Chambers 2D Name Value Normal Range IVSd (2D) 0.94 cm (0.6 - 1.1) LVPWd (2D) 0.81 cm (0.6 - 1.1) LVIDd (2D) 3.6 cm (3.7 - 5.6) LVIDs (2D) 2.27 cm (2 - 3.8) LV FS (2D) 36.93 % - EF Teichholz (2D) 67.76 % - Ao root diameter (2D) 3.03 cm (2 - 3.7) Volumes/Mass Name Value Normal Range LA ESV SP 4CH (A/L) 16.89 ml - LA ESV SP 4CH (MOD) 15.52 ml - Diastolic/Systolic Function Name Value Normal Range MV E-wave Vmax 0.55 m/sec - MV deceleration time 200.89 msec - MV A-wave Vmax 0.68 m/sec - MV E:A ratio 0.82 ratio - Aortic Valve Name Value Normal Range AV Vmax 1.1 m/sec - AV VTI 15.9 cm - AV peak gradient 4.86 mmHg - AV mean gradient 2.59 mmHg - LVOT diameter 2 cm - LVOT Vmax 1.03 m/sec - LVOT VTI 15.87 cm - LVOT peak gradient 4.24 mmHg - LVOT mean gradient 2.41 mmHg - SV LVOT 49.77 ml - JOSÉ MIGUEL (continuity Vmax) 2.93 cm2 - JOSÉ MIGUEL (continuity VTI) 3.13 cm2 - Tricuspid Valve Name Value Normal Range TR Vmax 2.74 m/sec - TR peak gradient 303 mmHg - RAP 3 mmHg - RVSP 33 mmHg - IVC diameter 1.77 cm (1.2 - 2.3) Pulmonic Valve/Qp:Qs Name Value Normal Range PV Vmax 0.77 m/sec - PV peak gradient 2.4 mmHg - PV acceleration time 114.18 msec - Echocardiogram Limited Views 12/17/19 14:53 Transthoracic Echocardiogram Indication: R/O Vegetations BP: 144/83 HR: 133 Conclusions *Global left ventricular systolic function is mildly decreased. *The estimated ejection fraction is 45-50%. *A trivial pericardial effusion is visualized. Findings Left Ventricle: The left ventricular chamber size is normal. Global left ventricular systolic function is mildly decreased. The estimated ejection fraction is 45-50%. Left Atrium: The left atrial chamber size is normal. Right Ventricle: The right ventricular cavity size is normal. Right Atrium: The right atrial cavity size is normal. Aortic Valve: The aortic valve is not well visualized. There is no evidence of aortic regurgitation. Mitral Valve: The mitral valve leaflets are mildly thickened. There is trace of mitral regurgitation. Tricuspid Valve: The tricuspid valve leaflets are mildly thickened. There is trace tricuspid regurgitation. The right ventricular systolic pressure is calculated at 29 mmHg. Pulmonic Valve: The pulmonic valve is not well visualized. There is no evidence of pulmonic regurgitation. Pericardium: A trivial pericardial effusion is visualized. Aorta: There is no dilatation of the ascending aorta. There is no dilatation of the aortic root. Venous: The inferior vena cava appears normal in size. There is a greater than 50% respiratory change in the inferior vena cava dimension. Measurements Chambers 2D Name Value Normal Range IVSd (2D) 0.83 cm (0.6 - 1.1) LVPWd (2D) 0.98 cm (0.6 - 1.1) LVIDd (2D) 3.71 cm (3.7 - 5.6) LVIDs (2D) 2.93 cm (2 - 3.8) LV FS (2D) 21.12 % - EF Teichholz (2D) 43.71 % - Ao root diameter (2D) 3.02 cm (2 - 3.7) Volumes/Mass Name Value Normal Range LA ESV SP 4CH (A/L) 36.8 ml - LA ESV SP 2CH (A/L) 45.89 ml - LA ESV BP (A/L) 42.35 ml - LA ESV BP (A/L) index 26.63 ml/m2 - LA ESV SP 4CH (MOD) 34.42 ml - LA ESV SP 2CH (MOD) 44.21 ml - LA ESV BP (MOD) 39.82 ml - LA ESV BP (MOD) index 25.05 ml/m2 - Aortic Valve Name Value Normal Range LVOT diameter 1.63 cm - Tricuspid Valve Name Value Normal Range TR Vmax 2.56 m/sec - TR peak gradient 26 mmHg - RAP 3 mmHg - RVSP 29 mmHg - IVC diameter 1.83 cm (1.2 - 2.3) [place]/IV: Voiding Method Incontinent IV Catheter Type [Forearm] Peripheral IV IV Catheter Type [Left Forearm INT / Saline Lock ] IV Catheter Type [Right INT / Saline Lock Antecubital] IV Catheter Type [Right Hand] INT / Saline Lock IV Catheter Type [Right Wrist] Peripheral IV IV Catheter Type [Left Wrist] Peripheral IV IV Catheter Type [Left Peripheral IV Antecubital] IV Catheter Type [Right INT / Saline Lock Forearm] IV Catheter Type [Left Hand] INT / Saline Lock Active Medications - Current Medications Current Medications: Generic Name Dose Route Start Last Admin Trade Name Freq PRN Reason Stop Dose Admin Acetaminophen 650 mg 12/06/19 10:25 03/25/20 00:17 Tylenol FEEDTUBE 650 mg Q6H PRN Administration TEMP >/=100.3 Albuterol 2.5 mg 03/25/20 19:25 Proventil IH Q4HRT PRN Shortness Of Breath Albuterol/Ipratropium 1 ampul 03/30/20 20:00 03/31/20 21:17 Duoneb *Not For Prn Use* IH 1 ampul BIDRT LUCHO Administration Lipase/Protease/Amylase 1 each 11/23/19 11:50 Pancreaze 10,500 Unit FEEDTUBE PRN PRN Use w/ sod bicarb for FT Bisacodyl 10 mg 02/06/20 13:57 Dulcolax MI QDAY PRN Constipation unrelieved by MOM Enoxaparin Sodium 40 mg 03/07/20 22:00 03/31/20 22:10 Enoxaparin SUB-Q 40 mg QDAY@2200 LUCHO Administration Glycopyrrolate 2 mg 12/31/19 20:00 04/01/20 09:54 Robinul PO 2 mg TID LUCHO Administration Haloperidol Lactate 5 mg 03/05/20 09:22 03/25/20 00:17 Haldol IM 5 mg Q6H PRN Administration Agitation Hydralazine HCl 10 mg 11/24/19 00:45 03/03/20 05:57 Apresoline IV 10 mg Q6H PRN Administration SBP > 160 Hydroxyzine Pamoate 25 mg 12/06/19 10:00 04/01/20 09:55 Vistaril PO 25 mg BID LUCHO Administration Lansoprazole 30 mg 11/27/19 10:00 04/01/20 09:55 Prevacid Solutab FEEDTUBE 30 mg QDAY LUCHO Administration Levetiracetam 500 mg 11/29/19 10:00 04/01/20 09:58 Keppra PO 500 mg BID LUCHO Administration Mirtazapine 30 mg 12/06/19 10:00 04/01/20 09:55 Remeron PO 30 mg DAILY LUCHO Administration Nicotine 21 mg 02/16/20 13:00 04/01/20 09:55 Habitrol TD 21 mg QDAY LUCHO Administration Ondansetron HCl 4 mg 12/10/19 07:53 02/25/20 02:51 Zofran IV 4 mg Q4H PRN Administration Nausea And Vomiting Polyethylene Glycol 17 gm 02/06/20 13:57 Miralax 3350 PO QDAY PRN Constipation Quetiapine Fumarate 100 mg 03/06/20 10:00 04/01/20 10:00 Seroquel FEEDTUBE 100 mg BID LUCHO Administration Scopolamine 1 each 02/08/20 15:00 03/30/20 10:24 Transderm-Scop TD 1 each Q3D LUCHO Administration Sertraline HCl 25 mg 01/01/20 10:00 04/01/20 09:58 Zoloft PO 25 mg QDAY LUCHO Administration Simple Syrup 15 ml 11/23/19 11:50 Simple Syrup FEEDTUBE PRN PRN Hypoglycemia BG<70 Simple Syrup 30 ml 11/23/19 11:50 Simple Syrup FEEDTUBE PRN PRN Hypoglycemia Sodium Bicarbonate 325 mg 11/23/19 11:50 Sodium Bicarbonate FEEDTUBE PRN PRN For Clogged Feeding Tube Nutrition/Malnutrition Assess - Dietary Evaluation Nutrition/Malnutrition Findings: Nutrition Notes Start: 11/23/19 11:2 9 Freq: Status: Active Protocol: Document 03/27/20 10:42 EVELIA (Rec: 03/27/20 10:48 [email or web address] [email or web address]) Nutrition Notes Initial or Follow up Reassessment Other Pertinent Diagnosis s/p Cardiac arrest, acute metabolic encephalopathy Current Diet Jevity 1.2 at 60ml/hr Labs/Tests Reviewed Pertinent Medications Reviewed Height 5 ft 6 in Weight 49 kg [place] Body Weight (kg) 59.09 BMI 17.4 Subjective/Other Information RD spoke with RN via telephone this am (10:39). Pt tolerating TF at goal rate. Pt receiving Osmolite 1.5 at this time, however, Jevity 1.2 back in stock today. Pt awaiting placement. Burn Absent Trauma Absent #2 Nutrition Diagnosis Malnutrition Diagnosis Progress(for reassessment Continues documentation) #1 Nutrition Diagnosis Inadequate oral intake Diagnosis Progress(for reassessment Continues documentation) Is patient on ventilator? No Is Patient Ambulatory and/or Out of Bed No REE-([facility]-confined to bed) 1326.792 Kcal/Kg value to use for calculation 35 Approximate Energy Requirements Using 1715 kcal/Kg Calculation Used for Recommendations Kcal/kg Additional Notes Pro needs 1.2-1.5g/k-74g/ day Fluid needs 1ml/kcal Nutrition Intervention Nutrition Support: Change TF back to Jevity 1.2 at 60ml/hr Flush 100ml q4h Kcal 1,728 Protein (gm) 80 Fluid (mL) 1,162 Fiber (gm) 26 Goal #1 TF tolerance Goal #2 TF to meet 100% energy and pro needs Goal #3 Wt maintenance and/or gain Follow-Up By: 04/03/20 Additional Comments F/U: stable TF, wt
[2020-04-01] MEDS: IPRATROPIUM/ALBUTEROL SULFATE 3 ML AMPUL.NEB IH SCH ×2 (16:38→20:05)
[2020-04-01] MEDS: ENOXAPARIN 40 MG/0.4 ML INJ SUB-Q SCH (22:13)
--- NOTE | 2020-04-02 08:23 | Progress Note ---
Assessment and Plan Assessment and plan: Cardiopulmonary arrest outside the hospital; Status post CPR' Anoxic brain injury: suspected CT head: No acute abnormality. EEG ordered showed Generalized slowing. No seizures or epileptiform activity. -Patient now alert and awake responding appropriately -As needed haldol for agitation Acute Respiratory failure status post trach and PEG 12/13/2019 -due to MSSA PNA, on T-piece - CTA was done and negative for PE, - Echo quality is poor, showed diastolic dysfunction - continue weaning as tolerated -Continue appropriate and adequate tracheostomy care Tracheostomy site ulceration -Continue appropriate wound management try to keep area dry. Anemia, microcytic - Status post 3 units PRBC transfusion, H&H low stable Acute metabolic encephalopathy/toxic encephalopathy due to the above - cont supportive care Hyperammonemia - likely from liver disease related to EtOH abuse - Patient had elevated ammonia level and treated with lactulose Metabolic Acidosis -Alcohol ketoacidosis vs hypoprofusion -Continue to monitor ELevated LFTs, stable now - due to ischemic hepatitis. Leucocytosis with sepsis - Source MRSA bacteremia and MSSA pneumonia. UA showed pyuria. RUQ US showed no ascites. - Repeat TTE negative for vegetation. Completed 7 days of Ceftriaxone on 11/29/2019. -Treated with Abx vancomycin 1 gm IV q 12 hour total 2 week till 12/30/2019 Severe protein calorie malnutrition Dietitian following MSSA pneumonia: Status post vancomycin till 12/30/2019 Alcohol use Disorder - given ongoing Alcohol use almost daily, s/p IV Thiamine - monitor Severe hypokalemia -Repleted Seizure disorder: treated with Keppra H. Influenzae, tracheobronchitis, treated with abx Moderate to severe fecal impaction - will add stool softner DNR CODE STATUS Awaiting placement Disposition: prognosis guarded. Family okay for DNR, PT recommended subacute rehab, discharge pending on placement. Negative for COVID 19 03/07: Returning to service no acute changes are noted. Continue current management while awaiting placement. Intermittent labs. Base of neck also around tracheostomy tube preventing downgrading. Continue appropriate wound care. 03/08: Plan of care unchanged continues on aerosol trach collar 28% of oxygen. Continue wound care management placement still pending status decision. 03/09: Continue current treatment plan. Continue aspiration precaution 03/10: Continue current management, Restraints as patient still pulling, awaiting placement 03/11: Continue supportive care, intermittent suctioning and pulmonary toilet. awaiting placement. 03/12: Continue supportive care, Give a bolus of fluids due to Hypercalcemia, Monitor Hyperkalemia with labs in am, No arrhythmia. Patient vomiting, concern for aspiration, Chest xray ordered and no active disease noted. Keep HOB >45% 03/13: No evidence of aspiration on xray. Continue supportive care. 03/14: Continue supportive care. Capping trials to start. Discussed with patients nursing and case management to continue daily PT by the Rehab team. 03/15: Discussed again with staff to start capping trial. 03/16: Do not see any indication the capping trial has started will discuss with respiratory therapist. Continue restraints. Still awaiting family decision patient has had some remarkable improvement considering the fact that she was able to stay around night without restraints. We will continue daily trial of this method. Discussed plan with nursing staff 03/17: Continue current care. Currently continue restraints. Continue current management. Continue physical therapy daily. 03/18: Capping trial successful and will possibly get decannulated today. Continue placement. 03/19: Now decannulated and doing well. Begin discharge planning. 03/20: Stable, no new complaints. 03/21: No new complaints. Continue supportive 03/22: No new complaints, still with some confusion, and agitation requiring restraints. Will require daily PT/OT and continue to work with Case management for placement 03/23: continue current management, daily PT/OT. stoma care. No new seizure, slow but gradual improvement noted daily 03/24: Mr. Amaya is a 55-year-old female who presented to the hospital was admitted post cardiac arrest at home she has remarkably done well been extubated and decannulated with stoma healing. She still does experience some intermittent delirious process and as a result is on restraints. I have discussed with nursing staff to see if they can provide a sitter for her and continue daily PT as this will aid in reintroducing her to the community. Case management is working on placement for her. Will check labs in a.m. 03/25/2020. Patient is s/p cardiac arrest, extubated and decannulated with stoma healing. Await placement per case management. 03/26/2020. Awaiting placement. 03/27/2020. Continue to work with case management for placement. Patient requiring restraints for safety. 03/28/2020. Awaiting placement. 03/29/2020. Patient is s/p cardiac arrest, extubated and decannulated with stoma healing. Reconsulted physical therapy and speech therapy for reassessment and evaluation. Await placement per case management. 03/30/2020. Patient remains confused and in need of restraints for safety. Await placement per case management. 03/31/2020. Patient is s/p cardiac arrest, extubated and decannulated with stoma healing. Reconsulted physical therapy and speech therapy for reassessment and evaluation. Await placement per case management. Patient remains confused and in need of restraints for safety. 04/02/20; patient started on mechanical soft diet as tolerated. DC planning placement History Interval history: I have seen and examined the patient at bedside this morning Contact isolation precautions observed Patient is more alert and awake confused at times Wants to eat food, mechanical soft breakfast ordered No new complaints Alert and awake not in acute distress Vital signs stable Restraint for safety due to confusion Hospitalist Physical - Constitutional Vitals: Temp Pulse Resp BP Pulse Ox 97.4 F L 90 20 125/89 98 04/02/20 04:57 04/02/20 04:57 04/02/20 04:57 04/02/20 04:57 04/02/20 04:57 General appearance: Present: no acute distress, cachectic, disheveled, other (Minimally communicative) - EENT Eyes: Present: PERRL, EOM intact - Neck Neck: Present: supple, normal ROM - Respiratory Respiratory effort: normal Respiratory: bilateral: diminished, rhonchi, negative: rales, wheezing - Cardiovascular Rhythm: regular Heart Sounds: Present: S1 & S2 - Extremities Extremities: no ischemia, No edema - Abdominal General gastrointestinal: soft, non-tender, non-distended, normal bowel sounds - Integumentary Integumentary: Present: clear, warm - Psychiatric Psychiatric: appropriate mood/affect, cooperative, other (Confused at times) - Neurologic Neurologic: moves all extremities HEART Score - HEART Score Troponin: Troponin T < 0.010 ng/mL (0.00-0.029) 11/22/19 23:27 Results - Labs CBC & Chem 7: 03/25/20 04:28 03/25/20 04:28 Labs: Laboratory Last Values WBC 9.0 K/mm3 (4.5-11.0) 07/07/20 04:28 RBC 3.65 M/mm3 (3.65-5.03) 03/25/20 04:28 Hgb 10.8 gm/dl (10.1-14.3) 03/25/20 04:28 Hct 32.5 % (30.3-42.9) 03/25/20 04:28 MCV 89 fl (79-97) 03/25/20 04:28 MCH 30 pg (28-32) 03/25/20 04:28 MCHC 33 % (30-34) 03/25/20 04:28 RDW 14.1 % (13.2-15.2) 03/25/20 04:28 Plt Count 423 K/mm3 (140-440) 03/25/20 04:28 Lymph % (Auto) 27.8 % (13.4-35.0) 03/06/20 03:37 [place] % (Auto) 9.1 % (0.0-7.3) H 03/06/20 03:37 Eos % (Auto) 2.8 % (0.0-4.3) 03/06/20 03:37 Baso % (Auto) 0.7 % (0.0-1.8) 03/06/20 03:37 Lymph # 2.2 K/mm3 (1.2-5.4) 03/06/20 03:37 [place] # 0.7 K/mm3 (0.0-0.8) 03/06/20 03:37 Eos # 0.2 K/mm3 (0.0-0.4) 03/06/20 03:37 Baso # 0.1 K/mm3 (0.0-0.1) 03/06/20 03:37 Add Manual Diff Complete 12/25/19 03:47 Total Counted 200 12/25/19 03:47 Seg Neutrophils % 59.6 % (40.0-70.0) 03/06/20 03:37 Seg Neuts % (Manual) 97.5 % (40.0-70.0) H 12/25/19 03:47 Band Neutrophils % 0 % 12/25/19 03:47 Lymphocytes % (Manual) 1.0 % (13.4-35.0) L 12/25/19 03:47 Reactive Lymphs % (Man) 0 % 12/25/19 03:47 Monocytes % (Manual) 1.5 % (0.0-7.3) 12/25/19 03:47 Eosinophils % (Manual) 0 % (0.0-4.3) 12/25/19 03:47 Basophils % (Manual) 0 % (0.0-1.8) 12/25/19 03:47 Metamyelocytes % 0 % 12/25/19 03:47 Myelocytes % 0 % 12/25/19 03:47 Promyelocytes % 0 % 12/25/19 03:47 Blast Cells % 0 % 12/25/19 03:47 Nucleated RBC % Not Reportable 12/25/19 03:47 Seg Neutrophils # 4.8 K/mm3 (1.8-7.7) 03/06/20 03:37 Seg Neutrophils # Man 35.3 K/mm3 (1.8-7.7) H 12/25/19 03:47 Band Neutrophils # 0.0 K/mm3 12/25/19 03:47 Lymphocytes # (Manual) 0.4 K/mm3 (1.2-5.4) L 12/25/19 03:47 Abs React Lymphs (Man) 0.0 K/mm3 12/25/19 03:47 Monocytes # (Manual) 0.5 K/mm3 (0.0-0.8) 12/25/19 03:47 Eosinophils # (Manual) 0.0 K/mm3 (0.0-0.4) 12/25/19 03:47 Basophils # (Manual) 0.0 K/mm3 (0.0-0.1) 12/25/19 03:47 Metamyelocytes # 0.0 K/mm3 12/25/19 03:47 Myelocytes # 0.0 K/mm3 12/25/19 03:47 Promyelocytes # 0.0 K/mm3 12/25/19 03:47 Blast Cells # 0.0 K/mm3 12/25/19 03:47 Pathologist Review 12/13/19 07:48 WBC Morphology Not Reportable 12/25/19 03:47 Hypersegmented Neuts Not Reportable 12/25/19 03:47 Hyposegmented Neuts Not Reportable 12/25/19 03:47 Hypogranular Neuts Not Reportable 12/25/19 03:47 Smudge Cells Not Reportable 12/25/19 03:47 Toxic Granulation Not Reportable 12/25/19 03:47 Toxic Vacuolation Not Reportable 12/25/19 03:47 Dohle Bodies Not Reportable 12/25/19 03:47 Pelger-Huet Anomaly Not Reportable 12/25/19 03:47 Dominique Rods Not Reportable 12/25/19 03:47 Platelet Estimate Consistent w auto 12/25/19 03:47 Clumped Platelets Not Reportable 12/25/19 03:47 Plt Clumps, EDTA Not Reportable 12/25/19 03:47 Large Platelets Not Reportable 12/25/19 03:47 Giant Platelets Not Reportable 12/25/19 03:47 Platelet Satelliting Not Reportable 12/25/19 03:47 Plt Morphology Comment Not Reportable 12/25/19 03:47 RBC Morphology Not Reportable 12/25/19 03:47 Dimorphic RBCs Not Reportable 12/25/19 03:47 Polychromasia Not Reportable 12/25/19 03:47 Hypochromasia Not Reportable 12/25/19 03:47 Poikilocytosis Not Reportable 12/25/19 03:47 Anisocytosis 1+ 12/25/19 03:47 Microcytosis Not Reportable 12/25/19 03:47 Macrocytosis Not Reportable 12/25/19 03:47 Spherocytes Not Reportable 12/25/19 03:47 Pappenheimer Bodies Not Reportable 12/25/19 03:47 Sickle Cells Not Reportable 12/25/19 03:47 Target Cells Not Reportable 12/25/19 03:47 Tear Drop Cells Not Reportable 12/25/19 03:47 Ovalocytes Not Reportable 12/25/19 03:47 Helmet Cells Not Reportable 12/25/19 03:47 [place] Bodies Not Reportable 12/25/19 03:47 [place] Rings Not Reportable 12/25/19 03:47 Jamshid Cells Not Reportable 12/25/19 03:47 Bite Cells Not Reportable 12/25/19 03:47 Crenated Cell Not Reportable 12/25/19 03:47 Elliptocytes Not Reportable 12/25/19 03:47 Acanthocytes (Spur) Not Reportable 12/25/19 03:47 Rouleaux Not Reportable 12/25/19 03:47 Hemoglobin C Crystals Not Reportable 12/25/19 03:47 Schistocytes Not Reportable 12/25/19 03:47 Malaria parasites Not Reportable 12/25/19 03:47 Gregg Bodies Not Reportable 12/25/19 03:47 Hem Pathologist Commnt No 12/25/19 03:47 PT 17.0 Sec. (12.2-14.9) H 11/23/19 03:47 INR 1.36 (0.87-1.13) H 11/23/19 03:47 APTT 128.2 Sec. (24.2-36.6) H* 11/23/19 03:47 Heparin Anti-Xa Level 0.31 U.I./ml (0.3-0.7) 11/23/19 09:03 ABG pH 7.433 pH Units (7.350-7.450) 03/08/20 13:25 ABG pCO2 40.2 mm Hg 03/08/20 13:25 ABG pO2 71.1 mm Hg (80.0-90.0) L 03/08/20 13:25 ABG HCO3 26.2 mmol/L (20.0-26.0) H 03/08/20 13:25 ABG O2 Saturation 97.0 % (95.0-99.0) 03/08/20 13:25 ABG O2 Content 11.0 (0.0-44) 03/08/20 13:25 ABG Base Excess 1.8 mmol/L (-2.0-3.0) 03/08/20 13:25 ABG Hemoglobin 8.2 gm/dl (12.0-16.0) L 03/08/20 13:25 ABG Carboxyhemoglobin 1.7 % (0.0-5.0) 03/08/20 13:25 ABG Methemoglobin 0.5 % (0.0-1.5) 03/08/20 13:25 Oxyhemoglobin 94.8 % (95.0-99.0) L 03/08/20 13:25 FiO2 21 % 03/08/20 13:25 Sodium 138 mmol/L (137-145) 03/25/20 04:28 Potassium 4.2 mmol/L (3.6-5.0) 03/25/20 04:28 Chloride 99.3 mmol/L (98-107) 03/25/20 04:28 Carbon Dioxide 28 mmol/L (22-30) 03/25/20 04:28 Anion Gap 15 mmol/L 03/25/20 04:28 BUN 23 mg/dL (7-17) H 03/25/20 04:28 Creatinine 0.5 mg/dL (0.7-1.2) L 03/25/20 04:28 Estimated GFR > 60 ml/min 03/25/20 04:28 BUN/Creatinine Ratio 46 % 03/25/20 04:28 Glucose 121 mg/dL (65-100) H 03/25/20 04:28 POC Glucose 132 (70-105) H 04/01/20 22:51 Lactic Acid 1.80 mmol/L (0.7-2.0) 11/25/19 05:05 Calcium 10.3 mg/dL (8.4-10.2) H 03/25/20 04:28 Ionized Calcium 4.5 mg/dL (4.8-5.6) L 11/23/19 06:32 Phosphorus 4.20 mg/dL (2.5-4.5) D 11/28/19 08:59 Magnesium 1.90 mg/dL (1.7-2.3) 02/28/20 03:40 Total Bilirubin 0.40 mg/dL (0.1-1.2) 12/13/19 07:48 AST 27 units/L (5-40) 12/13/19 07:48 ALT 26 units/L (7-56) 12/13/19 07:48 Alkaline Phosphatase 316 units/L (35-129) H 12/13/19 07:48 Ammonia 42.0 umol/L (25-60) 11/29/19 13:41 Total Creatine Kinase 139 units/L (30-135) H 11/22/19 23:27 CK-MB (CK-2) 8.3 ng/mL (0.0-4.0) H 11/22/19 23:27 CK-MB (CK-2) Rel Index 5.9 (0-4) H 11/22/19 23:27 Troponin T < 0.010 ng/mL (0.00-0.029) 11/22/19 23:27 Total Protein 6.8 g/dL (6.3-8.2) 12/13/19 07:48 Albumin 2.4 g/dL (3.9-5) L 12/13/19 07:48 Albumin/Globulin Ratio 0.5 % 12/13/19 07:48 Lipase 18 units/L (13-60) 11/23/19 00:34 Procalcitonin 1.09 ng/mL (<0.15) 11/23/19 04:53 TSH 1.010 mlU/mL (0.270-4.200) 02/12/20 07:36 Free T4 1.08 ng/dL (0.76-1.46) 02/12/20 07:36 Urine Color Yellow (Yellow) 12/16/19 Unknown Urine Turbidity Slightly-cloudy (Clear) 12/16/19 Unknown Urine pH 5.0 (5.0-7.0) 12/16/19 Unknown Ur Specific [place] 1.018 (1.003-1.030) 12/16/19 Unknown Urine Protein 30 mg/dl mg/dL (Negative) 12/16/19 Unknown Urine Glucose (UA) Neg mg/dL (Negative) 12/16/19 Unknown Urine Ketones Neg mg/dL (Negative) 12/16/19 Unknown Urine Blood Sm (Negative) 12/16/19 Unknown Urine Nitrite Neg (Negative) 12/16/19 Unknown Urine Bilirubin Neg (Negative) 12/16/19 Unknown Urine Urobilinogen < 2.0 mg/dL (<2.0) 12/16/19 Unknown Ur Leukocyte Esterase Neg (Negative) 12/16/19 Unknown Urine WBC (Auto) 6.0 /HPF (0.0-6.0) 12/16/19 Unknown Urine RBC (Auto) 9.0 /HPF (0.0-6.0) 12/16/19 Unknown U Epithel Cells (Auto) < 1.0 /HPF (0-13.0) 12/16/19 Unknown Urine Bacteria (Auto) 2+ /HPF (Negative) 11/22/19 23:17 Hyaline Casts 3 /LPF 12/16/19 Unknown Granular Casts 3 /LPF 12/16/19 Unknown Urine Mucus Few /HPF 12/16/19 Unknown Vancomycin Trough 33.8 ug/mL (5.0-20.0) H 12/21/19 08:56 Random Vancomycin 16.2 ug/mL (0-40.0) 12/24/19 04:31 Salicylates < 0.3 mg/dL (2.8-20.0) L 11/22/19 23:27 Urine Opiates Screen Presumptive negative 11/22/19 23:17 Urine Methadone Screen Presumptive negative 11/22/19 23:17 Acetaminophen < 5.0 ug/mL (10.0-30.0) L 11/22/19 23:27 Ur Barbiturates Screen Presumptive negative 11/22/19 23:17 Ur Phencyclidine Scrn Presumptive negative 11/22/19 23:17 Ur Amphetamines Screen Presumptive negative 11/22/19 23:17 U Benzodiazepines Scrn Presumptive negative 11/22/19 23:17 Urine Cocaine Screen Presumptive negative 11/22/19 23:17 U Marijuana (THC) Screen Presumptive negative 11/22/19 23:17 Drugs of Abuse Note Disclamer 11/22/19 23:17 Plasma/Serum Alcohol 0.08 % (0-0.07) H 11/22/19 23:27 Coronavirus (PCR) Negative (Negative) 02/05/20 07:50 Hepatitis A IgM Ab Non-reactive (NonReactive) 11/23/19 01:19 Hep Bs Antigen Non-reactive (Negative) 11/23/19 01:19 Hep B Core IgM Ab Non-reactive (NonReactive) 11/23/19 01:19 Hepatitis C Antibody Non-reactive (NonReactive) 11/23/19 01:19 Blood Type O POSITIVE 12/21/19 14:54 Antibody Screen Negative 12/21/19 14:54 Crossmatch See Detail 12/21/19 14:54 - Diagnostic Impressions Diagnostic Impressions: Echocardiogram 11/23/19 03:58 Transthoracic Echocardiogram Indication: Cardiac arrest BP: 131/89 HR: 115 Conclusions *The study quality is technically difficult. *Global left ventricular wall motion and contractility are within normal limits. *The estimated ejection fraction is 55-60%. *Abnormal left ventricular diastolic filling is observed, consistent with impaired relaxation. *There is no pericardial effusion. Findings Procedure Info: The study quality is technically difficult. The study was technically limited due to the patient's inability to lay in the left lateral decubitus position. Left Ventricle: The left ventricular chamber size is normal. There is no left ventricular hypertrophy. Global left ventricular wall motion and contractility are within normal limits. Global left ventricular systolic function is normal. The estimated ejection fraction is 55-60%. Abnormal left ventricular diastolic filling is observed, consistent with impaired relaxation. Left Atrium: The left atrial chamber size is normal. Aortic Valve: The aortic valve leaflets are mildly thickened. Mitral Valve: The mitral valve leaflets are mildly thickened. There is no evidence of mitral regurgitation. Tricuspid Valve: The tricuspid valve leaflets are normal. There is trace tricuspid regurgitation. The right ventricular systolic pressure is calculated at 33 mmHg. Pulmonic Valve: The pulmonic valve appears normal. Pericardium: The pericardium appears normal. There is no pericardial effusion. Aorta: The aorta appears normal. Venous: The inferior vena cava appears normal in size. Measurements Chambers 2D Name Value Normal Range IVSd (2D) 0.94 cm (0.6 - 1.1) LVPWd (2D) 0.81 cm (0.6 - 1.1) LVIDd (2D) 3.6 cm (3.7 - 5.6) LVIDs (2D) 2.27 cm (2 - 3.8) LV FS (2D) 36.93 % - EF Teichholz (2D) 67.76 % - Ao root diameter (2D) 3.03 cm (2 - 3.7) Volumes/Mass Name Value Normal Range LA ESV SP 4CH (A/L) 16.89 ml - LA ESV SP 4CH (MOD) 15.52 ml - Diastolic/Systolic Function Name Value Normal Range MV E-wave Vmax 0.55 m/sec - MV deceleration time 200.89 msec - MV A-wave Vmax 0.68 m/sec - MV E:A ratio 0.82 ratio - Aortic Valve Name Value Normal Range AV Vmax 1.1 m/sec - AV VTI 15.9 cm - AV peak gradient 4.86 mmHg - AV mean gradient 2.59 mmHg - LVOT diameter 2 cm - LVOT Vmax 1.03 m/sec - LVOT VTI 15.87 cm - LVOT peak gradient 4.24 mmHg - LVOT mean gradient 2.41 mmHg - SV LVOT 49.77 ml - JOSÉ MIGUEL (continuity Vmax) 2.93 cm2 - JOSÉ MIGUEL (continuity VTI) 3.13 cm2 - Tricuspid Valve Name Value Normal Range TR Vmax 2.74 m/sec - TR peak gradient 303 mmHg - RAP 3 mmHg - RVSP 33 mmHg - IVC diameter 1.77 cm (1.2 - 2.3) Pulmonic Valve/Qp:Qs Name Value Normal Range PV Vmax 0.77 m/sec - PV peak gradient 2.4 mmHg - PV acceleration time 114.18 msec - Echocardiogram Limited Views 12/17/19 14:53 Transthoracic Echocardiogram Indication: R/O Vegetations BP: 144/83 HR: 133 Conclusions *Global left ventricular systolic function is mildly decreased. *The estimated ejection fraction is 45-50%. *A trivial pericardial effusion is visualized. Findings Left Ventricle: The left ventricular chamber size is normal. Global left ventricular systolic function is mildly decreased. The estimated ejection fraction is 45-50%. Left Atrium: The left atrial chamber size is normal. Right Ventricle: The right ventricular cavity size is normal. Right Atrium: The right atrial cavity size is normal. Aortic Valve: The aortic valve is not well visualized. There is no evidence of aortic regurgitation. Mitral Valve: The mitral valve leaflets are mildly thickened. There is trace of mitral regurgitation. Tricuspid Valve: The tricuspid valve leaflets are mildly thickened. There is trace tricuspid regurgitation. The right ventricular systolic pressure is calculated at 29 mmHg. Pulmonic Valve: The pulmonic valve is not well visualized. There is no evidence of pulmonic regurgitation. Pericardium: A trivial pericardial effusion is visualized. Aorta: There is no dilatation of the ascending aorta. There is no dilatation of the aortic root. Venous: The inferior vena cava appears normal in size. There is a greater than 50% respiratory change in the inferior vena cava dimension. Measurements Chambers 2D Name Value Normal Range IVSd (2D) 0.83 cm (0.6 - 1.1) LVPWd (2D) 0.98 cm (0.6 - 1.1) LVIDd (2D) 3.71 cm (3.7 - 5.6) LVIDs (2D) 2.93 cm (2 - 3.8) LV FS (2D) 21.12 % - EF Teichholz (2D) 43.71 % - Ao root diameter (2D) 3.02 cm (2 - 3.7) Volumes/Mass Name Value Normal Range LA ESV SP 4CH (A/L) 36.8 ml - LA ESV SP 2CH (A/L) 45.89 ml - LA ESV BP (A/L) 42.35 ml - LA ESV BP (A/L) index 26.63 ml/m2 - LA ESV SP 4CH (MOD) 34.42 ml - LA ESV SP 2CH (MOD) 44.21 ml - LA ESV BP (MOD) 39.82 ml - LA ESV BP (MOD) index 25.05 ml/m2 - Aortic Valve Name Value Normal Range LVOT diameter 1.63 cm - Tricuspid Valve Name Value Normal Range TR Vmax 2.56 m/sec - TR peak gradient 26 mmHg - RAP 3 mmHg - RVSP 29 mmHg - IVC diameter 1.83 cm (1.2 - 2.3) [place]/IV: Voiding Method Incontinent IV Catheter Type [Forearm] Peripheral IV IV Catheter Type [Left Forearm INT / Saline Lock ] IV Catheter Type [Right INT / Saline Lock Antecubital] IV Catheter Type [Right Hand] INT / Saline Lock IV Catheter Type [Right Wrist] Peripheral IV IV Catheter Type [Left Wrist] Peripheral IV IV Catheter Type [Left Peripheral IV Antecubital] IV Catheter Type [Right INT / Saline Lock Forearm] IV Catheter Type [Left Hand] INT / Saline Lock Active Medications - Current Medications Current Medications: Generic Name Dose Route Start Last Admin Trade Name Freq PRN Reason Stop Dose Admin Acetaminophen 650 mg 12/06/19 10:25 03/25/20 00:17 Tylenol FEEDTUBE 650 mg Q6H PRN Administration TEMP >/=100.3 Albuterol 2.5 mg 03/25/20 19:25 Proventil IH Q4HRT PRN Shortness Of Breath Albuterol/Ipratropium 1 ampul 03/30/20 20:00 04/01/20 20:05 Duoneb *Not For Prn Use* IH 1 ampul BIDRT LUCHO Administration Lipase/Protease/Amylase 1 each 11/23/19 11:50 Pancrestefani C[place] 10,500 Unit FEEDTUBE PRN PRN Use w/ sod bicarb for FT Bisacodyl 10 mg 02/06/20 13:57 Dulcolax FL QDAY PRN Constipation unrelieved by MOM Enoxaparin Sodium 40 mg 03/07/20 22:00 04/01/20 22:13 Enoxaparin SUB-Q 40 mg QDAY@2200 LUCHO Administration Glycopyrrolate 2 mg 12/31/19 20:00 04/01/20 21:30 Robinul PO 2 mg TID LUCHO Administration Haloperidol Lactate 5 mg 03/05/20 09:22 04/01/20 15:57 Haldol IM 5 mg Q6H PRN Administration Agitation Hydralazine HCl 10 mg 11/24/19 00:45 03/03/20 05:57 Apresoline IV 10 mg Q6H PRN Administration SBP > 160 Hydroxyzine Pamoate 25 mg 12/06/19 10:00 04/01/20 22:13 Vistaril PO 25 mg BID LUCHO Administration Lansoprazole 30 mg 11/27/19 10:00 04/01/20 09:55 Prevacid Solutab FEEDTUBE 30 mg QDAY LUCHO Administration Levetiracetam 500 mg 11/29/19 10:00 04/01/20 22:13 Keppra PO 500 mg BID LUCHO Administration Mirtazapine 30 mg 12/06/19 10:00 04/01/20 09:55 Remeron PO 30 mg DAILY LUCHO Administration Nicotine 21 mg 02/16/20 13:00 04/01/20 09:55 Habitrol TD 21 mg QDAY LUCHO Administration Ondansetron HCl 4 mg 12/10/19 07:53 02/25/20 02:51 Zofran IV 4 mg Q4H PRN Administration Nausea And Vomiting Polyethylene Glycol 17 gm 02/06/20 13:57 Miralax 3350 PO QDAY PRN Constipation Quetiapine Fumarate 100 mg 03/06/20 10:00 04/01/20 22:13 Seroquel FEEDTUBE 100 mg BID LUCHO Administration Scopolamine 1 each 02/08/20 15:00 03/30/20 10:24 Transderm-Scop TD 1 each Q3D LUCHO Administration Sertraline HCl 25 mg 01/01/20 10:00 04/01/20 09:58 Zoloft PO 25 mg QDAY LUCHO Administration Simple Syrup 15 ml 11/23/19 11:50 Simple Syrup FEEDTUBE PRN PRN Hypoglycemia BG<70 Simple Syrup 30 ml 11/23/19 11:50 Simple Syrup FEEDTUBE PRN PRN Hypoglycemia Sodium Bicarbonate 325 mg 11/23/19 11:50 Sodium Bicarbonate FEEDTUBE PRN PRN For Clogged Feeding Tube Nutrition/Malnutrition Assess - Dietary Evaluation Nutrition/Malnutrition Findings: Nutrition Notes Start: 11/23/19 11:29 Freq: Status: Active Protocol: Document 03/27/20 10:42 EVELIA (Rec: 03/27/20 10:48 [email or web address] [email or web address]) Nutrition Notes Initial or Follow up Reassessment Other Pertinent Diagnosis s/p Cardiac arrest, acute metabolic encephalopathy Current Diet Jevity 1.2 at 60ml/hr Labs/Tests Reviewed Pertinent Medications Reviewed Height 5 ft 6 in Weight 49 kg [place] Body Weight (kg) 59.09 BMI 17.4 Subjective/Other Information RD spoke with RN via telephone this am (10:39). Pt tolerating TF at goal rate. Pt receiving Osmolite 1.5 at this time, however, Jevity 1.2 back in stock today. Pt awaiting placement. Burn Absent Trauma Absent #2 Nutrition Diagnosis Malnutrition Diagnosis Progress(for reassessment Continues documentation) #1 Nutrition Diagnosis Inadequate oral intake Diagnosis Progress(for reassessment Continues documentation) Is patient on ventilator? No Is Patient Ambulatory and/or Out of Bed No REE-([facility]-confined to bed) 1326.792 Kcal/Kg value to use for calculation 35 Approximate Energy Requirements Using 1715 kcal/Kg Calculation Used for Recommendations Kcal/kg Additional Notes Pro needs 1.2-1.5g/k-74g/ day Fluid needs 1ml/kcal Nutrition Intervention Nutrition Support: Change TF back to Jevity 1.2 at 60ml/hr Flush 100ml q4h Kcal 1,728 Protein (gm) 80 Fluid (mL) 1,162 Fiber (gm) 26 Goal #1 TF tolerance Goal #2 TF to meet 100% energy and pro needs Goal #3 Wt maintenance and/or gain Follow-Up By: 04/03/20 Additional Comments F/U: stable TF, wt
[2020-04-02] MEDS: GLYCOPYRROLATE 1 MG TAB PO SCH ×3 (08:30→22:12)
[2020-04-02] MEDS: NICOTINE 21 MG/24 HR PATCH TD SCH (10:28)
[2020-04-02] MEDS: MIRTAZAPINE 30 MG TAB PO SCH (10:29)
[2020-04-02] MEDS: SCOPOLAMINE TRANSDERMAL PATCH 72 HR TD SCH (10:29)
[2020-04-02] MEDS: hydrOXYzine PAMOATE 25 MG CAP PO SCH ×2 (10:29→22:12)
[2020-04-02] MEDS: levETIRAcetam 500 MG/5 ML ORAL LIQD PO SCH ×2 (10:29→22:12)
[2020-04-02] MEDS: QUEtiapine 100 MG TAB FEEDTUBE SCH ×2 (10:29→22:12)
[2020-04-02] MEDS: SERTRALINE 50 MG TAB PO SCH (10:29)
[2020-04-02] MEDS: LANSOPRAZOLE 30 MG SOLUTAB FEEDTUBE SCH (10:29)
[2020-04-02] MEDS: IPRATROPIUM/ALBUTEROL SULFATE 3 ML AMPUL.NEB IH SCH ×2 (10:34→21:03)
[2020-04-02] MEDS: HALOPERIDOL LACTATE 5 MG/1 ML INJ IM PRN (14:02)
[2020-04-02] MEDS: ENOXAPARIN 40 MG/0.4 ML INJ SUB-Q SCH (22:12)
[2020-04-03] MEDS: GLYCOPYRROLATE 1 MG TAB PO SCH ×3 (08:00→22:52)
[2020-04-03] MEDS: IPRATROPIUM/ALBUTEROL SULFATE 3 ML AMPUL.NEB IH SCH ×2 (08:08→22:55)
--- NOTE | 2020-04-03 08:47 | Progress Note ---
Assessment and Plan Assessment and plan: Cardiopulmonary arrest outside the hospital; Status post CPR' Anoxic brain injury: suspected CT head: No acute abnormality. EEG ordered showed Generalized slowing. No seizures or epileptiform activity. -Patient now alert and awake responding appropriately -As needed haldol for agitation Acute Respiratory failure status post trach and PEG 12/13/2019 -due to MSSA PNA, on T-piece - CTA was done and negative for PE, - Echo quality is poor, showed diastolic dysfunction - continue weaning as tolerated -Continue appropriate and adequate tracheostomy care Tracheostomy site ulceration -Continue appropriate wound management try to keep area dry. Anemia, microcytic - Status post 3 units PRBC transfusion, H&H low stable Acute metabolic encephalopathy/toxic encephalopathy due to the above - cont supportive care Hyperammonemia - likely from liver disease related to EtOH abuse - Patient had elevated ammonia level and treated with lactulose Metabolic Acidosis -Alcohol ketoacidosis vs hypoprofusion -Continue to monitor ELevated LFTs, stable now - due to ischemic hepatitis. Leucocytosis with sepsis - Source MRSA bacteremia and MSSA pneumonia. UA showed pyuria. RUQ US showed no ascites. - Repeat TTE negative for vegetation. Completed 7 days of Ceftriaxone on 11/29/2019. -Treated with Abx vancomycin 1 gm IV q 12 hour total 2 week till 12/30/2019 Severe protein calorie malnutrition Dietitian following MSSA pneumonia: Status post vancomycin till 12/30/2019 Alcohol use Disorder - given ongoing Alcohol use almost daily, s/p IV Thiamine - monitor Severe hypokalemia -Repleted Seizure disorder: treated with Keppra H. Influenzae, tracheobronchitis, treated with abx Moderate to severe fecal impaction - will add stool softner DNR CODE STATUS Awaiting placement History Interval history: I have seen and examined the patient at bedside Patient's chart and medications reviewed Patient feels slightly better no new complaints Confused trying to get out of the bed Restraints for safety Vital signs noted Awaiting placement Hospitalist Physical - Constitutional Vitals: Temp Pulse Resp BP Pulse Ox 99.6 F 72 18 136/86 96 04/02/20 23:52 04/03/20 08:09 04/03/20 08:09 04/02/20 23:52 04/02/20 23:52 General appearance: Present: no acute distress, cachectic, disheveled, other (Minimally communicative) - EENT Eyes: Present: PERRL, EOM intact - Neck Neck: Present: supple, normal ROM - Respiratory Respiratory effort: normal Respiratory: bilateral: diminished, negative: rales, rhonchi, wheezing - Cardiovascular Rhythm: regular Heart Sounds: Present: S1 & S2 - Extremities Extremities: no ischemia Peripheral Pulses: within normal limits - Abdominal General gastrointestinal: soft, non-tender, non-distended, normal bowel sounds - Integumentary Integumentary: Present: clear, warm - Psychiatric Psychiatric: appropriate mood/affect, cooperative - Neurologic Neurologic: moves all extremities HEART Score - HEART Score Troponin: Troponin T < 0.010 ng/mL (0.00-0.029) 11/22/19 23:27 Results - Labs CBC & Chem 7: 03/25/20 04:28 03/25/20 04:28 Labs: Laboratory Last Values WBC 9.0 K/mm3 (4.5-11.0) 03/25/20 04:28 RBC 3.65 M/mm3 (3.65-5.03) 03/25/20 04:28 Hgb 10.8 gm/dl (10.1-14.3) 03/25/20 04:28 Hct 32.5 % (30.3-42.9) 03/25/20 04:28 MCV 89 fl (79-97) 03/25/20 04:28 MCH 30 pg (28-32) 03/25/20 04:28 MCHC 33 % (30-34) 03/25/20 04:28 RDW 14.1 % (13.2-15.2) 03/25/20 04:28 Plt Count 423 K/mm3 (140-440) 03/25/20 04:28 Lymph % (Auto) 27.8 % (13.4-35.0) 03/06/20 03:37 Vernon % (Auto) 9.1 % (0.0-7.3) H 03/06/20 03:37 Eos % (Auto) 2.8 % (0.0-4.3) 03/06/20 03:37 Baso % (Auto) 0.7 % (0.0-1.8) 03/06/20 03:37 Lymph # 2.2 K/mm3 (1.2-5.4) 03/06/20 03:37 Vernon # 0.7 K/mm3 (0.0-0.8) 03/06/20 03:37 Eos # 0.2 K/mm3 (0.0-0.4) 03/06/20 03:37 Baso # 0.1 K/mm3 (0.0-0.1) 03/06/20 03:37 Add Manual Diff Complete 12/25/19 03:47 Total Counted 200 12/25/19 03:47 Seg Neutrophils % 59.6 % (40.0-70.0) 03/06/20 03:37 Seg Neuts % (Manual) 97.5 % (40.0-70.0) H 12/25/19 03:47 Band Neutrophils % 0 % 12/25/19 03:47 Lymphocytes % (Manual) 1.0 % (13.4-35.0) L 12/25/19 03:47 Reactive Lymphs % (Man) 0 % 12/25/19 03:47 Monocytes % (Manual) 1.5 % (0.0-7.3) 12/25/19 03:47 Eosinophils % (Manual) 0 % (0.0-4.3) 12/25/19 03:47 Basophils % (Manual) 0 % (0.0-1.8) 12/25/19 03:47 Metamyelocytes % 0 % 12/25/19 03:47 Myelocytes % 0 % 12/25/19 03:47 Promyelocytes % 0 % 12/25/19 03:47 Blast Cells % 0 % 12/25/19 03:47 Nucleated RBC % Not Reportable 12/25/19 03:47 Seg Neutrophils # 4.8 K/mm3 (1.8-7.7) 03/06/20 03:37 Seg Neutrophils # Man 35.3 K/mm3 (1.8-7.7) H 12/25/19 03:47 Band Neutrophils # 0.0 K/mm3 12/25/19 03:47 Lymphocytes # (Manual) 0.4 K/mm3 (1.2-5.4) L 12/25/19 03:47 Abs React Lymphs (Man) 0.0 K/mm3 12/25/19 03:47 Monocytes # (Manual) 0.5 K/mm3 (0.0-0.8) 12/25/19 03:47 Eosinophils # (Manual) 0.0 K/mm3 (0.0-0.4) 12/25/19 03:47 Basophils # (Manual) 0.0 K/mm3 (0.0-0.1) 12/25/19 03:47 Metamyelocytes # 0.0 K/mm3 12/25/19 03:47 Myelocytes # 0.0 K/mm3 12/25/19 03:47 Promyelocytes # 0.0 K/mm3 12/25/19 03:47 Blast Cells # 0.0 K/mm3 12/25/19 03:47 Pathologist Review 12/13/19 07:48 WBC Morphology Not Reportable 12/25/19 03:47 Hypersegmented Neuts Not Reportable 12/25/19 03:47 Hyposegmented Neuts Not Reportable 12/25/19 03:47 Hypogranular Neuts Not Reportable 12/25/19 03:47 Smudge Cells Not Reportable 12/25/19 03:47 Toxic Granulation Not Reportable 12/25/19 03:47 Toxic Vacuolation Not Reportable 12/25/19 03:47 Dohle Bodies Not Reportable 12/25/19 03:47 Pelger-Huet Anomaly Not Reportable 12/25/19 03:47 Dominique Rods Not Reportable 12/25/19 03:47 Platelet Estimate Consistent w auto 12/25/19 03:47 Clumped Platelets Not Reportable 12/25/19 03:47 Plt Clumps, EDTA Not Reportable 12/25/19 03:47 Large Platelets Not Reportable 12/25/19 03:47 Giant Platelets Not Reportable 12/25/19 03:47 Platelet Satelliting Not Reportable 12/25/19 03:47 Plt Morphology Comment Not Reportable 12/25/19 03:47 RBC Morphology Not Reportable 12/25/19 03:47 Dimorphic RBCs Not Reportable 12/25/19 03:47 Polychromasia Not Reportable 12/25/19 03:47 Hypochromasia Not Reportable 12/25/19 03:47 Poikilocytosis Not Reportable 12/25/19 03:47 Anisocytosis 1+ 12/25/19 03:47 Microcytosis Not Reportable 12/25/19 03:47 Macrocytosis Not Reportable 12/25/19 03:47 Spherocytes Not Reportable 12/25/19 03:47 Pappenheimer Bodies Not Reportable 12/25/19 03:47 Sickle Cells Not Reportable 12/25/19 03:47 Target Cells Not Reportable 12/25/19 03:47 Tear Drop Cells Not Reportable 12/25/19 03:47 Ovalocytes Not Reportable 12/25/19 03:47 Helmet Cells Not Reportable 12/25/19 03:47 Frias-Bandon Bodies Not Reportable 12/25/19 03:47 Pauline Rings Not Reportable 12/25/19 03:47 Jamshid Cells Not Reportable 12/25/19 03:47 Bite Cells Not Reportable 12/25/19 03:47 Crenated Cell Not Reportable 12/25/19 03:47 Elliptocytes Not Reportable 12/25/19 03:47 Acanthocytes (Spur) Not Reportable 12/25/19 03:47 Rouleaux Not Reportable 12/25/19 03:47 Hemoglobin C Crystals Not Reportable 12/25/19 03:47 Schistocytes Not Reportable 12/25/19 03:47 Malaria parasites Not Reportable 12/25/19 03:47 Gregg Bodies Not Reportable 12/25/19 03:47 Hem Pathologist Commnt No 12/25/19 03:47 PT 17.0 Sec. (12.2-14.9) H 11/23/19 03:47 INR 1.36 (0.87-1.13) H 11/23/19 03:47 APTT 128.2 Sec. (24.2-36.6) H* 11/23/19 03:47 Heparin Anti-Xa Level 0.31 U.I./ml (0.3-0.7) 11/23/19 09:03 ABG pH 7.433 pH Units (7.350-7.450) 03/08/20 13:25 ABG pCO2 40.2 mm Hg 03/08/20 13:25 ABG pO2 71.1 mm Hg (80.0-90.0) L 03/08/20 13:25 ABG HCO3 26.2 mmol/L (20.0-26.0) H 03/08/20 13:25 ABG O2 Saturation 97.0 % (95.0-99.0) 03/08/20 13:25 ABG O2 Content 11.0 (0.0-44) 03/08/20 13:25 ABG Base Excess 1.8 mmol/L (-2.0-3.0) 03/08/20 13:25 ABG Hemoglobin 8.2 gm/dl (12.0-16.0) L 03/08/20 13:25 ABG Carboxyhemoglobin 1.7 % (0.0-5.0) 03/08/20 13:25 ABG Methemoglobin 0.5 % (0.0-1.5) 03/08/20 13:25 Oxyhemoglobin 94.8 % (95.0-99.0) L 03/08/20 13:25 FiO2 21 % 03/08/20 13:25 Sodium 138 mmol/L (137-145) 03/25/20 04:28 Potassium 4.2 mmol/L (3.6-5.0) 03/25/20 04:28 Chloride 99.3 mmol/L (98-107) 03/25/20 04:28 Carbon Dioxide 28 mmol/L (22-30) 03/25/20 04:28 Anion Gap 15 mmol/L 03/25/20 04:28 BUN 23 mg/dL (7-17) H 03/25/20 04:28 Creatinine 0.5 mg/dL (0.7-1.2) L 03/25/20 04:28 Estimated GFR > 60 ml/min 03/25/20 04:28 BUN/Creatinine Ratio 46 % 03/25/20 04:28 Glucose 121 mg/dL (65-100) H 03/25/20 04:28 POC Glucose 94 (70-105) 04/03/20 01:19 Lactic Acid 1.80 mmol/L (0.7-2.0) 11/25/19 05:05 Calcium 10.3 mg/dL (8.4-10.2) H 03/25/20 04:28 Ionized Calcium 4.5 mg/dL (4.8-5.6) L 11/23/19 06:32 Phosphorus 4.20 mg/dL (2.5-4.5) D 11/28/19 08:59 Magnesium 1.90 mg/dL (1.7-2.3) 02/28/20 03:40 Total Bilirubin 0.40 mg/dL (0.1-1.2) 12/13/19 07:48 AST 27 units/L (5-40) 12/13/19 07:48 ALT 26 units/L (7-56) 12/13/19 07:48 Alkaline Phosphatase 316 units/L (35-129) H 12/13/19 07:48 Ammonia 42.0 umol/L (25-60) 11/29/19 13:41 Total Creatine Kinase 139 units/L (30-135) H 11/22/19 23:27 CK-MB (CK-2) 8.3 ng/mL (0.0-4.0) H 11/22/19 23:27 CK-MB (CK-2) Rel Index 5.9 (0-4) H 11/22/19 23:27 Troponin T < 0.010 ng/mL (0.00-0.029) 11/22/19 23:27 Total Protein 6.8 g/dL (6.3-8.2) 12/13/19 07:48 Albumin 2.4 g/dL (3.9-5) L 12/13/19 07:48 Albumin/Globulin Ratio 0.5 % 12/13/19 07:48 Lipase 18 units/L (13-60) 11/23/19 00:34 Procalcitonin 1.09 ng/mL (<0.15) 11/23/19 04:53 TSH 1.010 mlU/mL (0.270-4.200) 02/12/20 07:36 Free T4 1.08 ng/dL (0.76-1.46) 02/12/20 07:36 Urine Color Yellow (Yellow) 12/16/19 Unknown Urine Turbidity Slightly-cloudy (Clear) 12/16/19 Unknown Urine pH 5.0 (5.0-7.0) 12/16/19 Unknown Ur Specific [place] 1.018 (1.003-1.030) 12/16/19 Unknown Urine Protein 30 mg/dl mg/dL (Negative) 12/16/19 Unknown Urine Glucose (UA) Neg mg/dL (Negative) 12/16/19 Unknown Urine Ketones Neg mg/dL (Negative) 12/16/19 Unknown Urine Blood Sm (Negative) 12/16/19 Unknown Urine Nitrite Neg (Negative) 12/16/19 Unknown Urine Bilirubin Neg (Negative) 12/16/19 Unknown Urine Urobilinogen < 2.0 mg/dL (<2.0) 12/16/19 Unknown Ur Leukocyte Esterase Neg (Negative) 12/16/19 Unknown Urine WBC (Auto) 6.0 /HPF (0.0-6.0) 12/16/19 Unknown Urine RBC (Auto) 9.0 /HPF (0.0-6.0) 12/16/19 Unknown U Epithel Cells (Auto) < 1.0 /HPF (0-13.0) 12/16/19 Unknown Urine Bacteria (Auto) 2+ /HPF (Negative) 11/22/19 23:17 Hyaline Casts 3 /LPF 12/16/19 Unknown Granular Casts 3 /LPF 12/16/19 Unknown Urine Mucus Few /HPF 12/16/19 Unknown Vancomycin Trough 33.8 ug/mL (5.0-20.0) H 12/21/19 08:56 Random Vancomycin 16.2 ug/mL (0-40.0) 12/24/19 04:31 Salicylates < 0.3 mg/dL (2.8-20.0) L 11/22/19 23:27 Urine Opiates Screen Presumptive negative 11/22/19 23:17 Urine Methadone Screen Presumptive negative 11/22/19 23:17 Acetaminophen < 5.0 ug/mL (10.0-30.0) L 11/22/19 23:27 Ur Barbiturates Screen Presumptive negative 11/22/19 23:17 Ur Phencyclidine Scrn Presumptive negative 11/22/19 23:17 Ur Amphetamines Screen Presumptive negative 11/22/19 23:17 U Benzodiazepines Scrn Presumptive negative 11/22/19 23:17 Urine Cocaine Screen Presumptive negative 11/22/19 23:17 U Marijuana (THC) Screen Presumptive negative 11/22/19 23:17 Drugs of Abuse Note Disclamer 11/22/19 23:17 Plasma/Serum Alcohol 0.08 % (0-0.07) H 11/22/19 23:27 Coronavirus (PCR) Negative (Negative) 02/05/20 07:50 Hepatitis A IgM Ab Non-reactive (NonReactive) 11/23/19 01:19 Hep Bs Antigen Non-reactive (Negative) 11/23/19 01:19 Hep B Core IgM Ab Non-reactive (NonReactive) 11/23/19 01:19 Hepatitis C Antibody Non-reactive (NonReactive) 11/23/19 01:19 Blood Type O POSITIVE 12/21/19 14:54 Antibody Screen Negative 12/21/19 14:54 Crossmatch See Detail 12/21/19 14:54 - Diagnostic Impressions Diagnostic Impressions: Echocardiogram 11/23/19 03:58 Transthoracic Echocardiogram Indication: Cardiac arrest BP: 131/89 HR: 115 Conclusions *The study quality is technically difficult. *Global left ventricular wall motion and contractility are within normal limits. *The estimated ejection fraction is 55-60%. *Abnormal left ventricular diastolic filling is observed, consistent with impaired relaxation. *There is no pericardial effusion. Findings Procedure Info: The study quality is technically difficult. The study was technically limited due to the patient's inability to lay in the left lateral decubitus position. Left Ventricle: The left ventricular chamber size is normal. There is no left ventricular hypertrophy. Global left ventricular wall motion and contractility are within normal limits. Global left ventricular systolic function is normal. The estimated ejection fraction is 55-60%. Abnormal left ventricular diastolic filling is observed, consistent with impaired relaxation. Left Atrium: The left atrial chamber size is normal. Aortic Valve: The aortic valve leaflets are mildly thickened. Mitral Valve: The mitral valve leaflets are mildly thickened. There is no evidence of mitral regurgitation. Tricuspid Valve: The tricuspid valve leaflets are normal. There is trace tricuspid regurgitation. The right ventricular systolic pressure is calculated at 33 mmHg. Pulmonic Valve: The pulmonic valve appears normal. Pericardium: The pericardium appears normal. There is no pericardial effusion. Aorta: The aorta appears normal. Venous: The inferior vena cava appears normal in size. Measurements Chambers 2D Name Value Normal Range IVSd (2D) 0.94 cm (0.6 - 1.1) LVPWd (2D) 0.81 cm (0.6 - 1.1) LVIDd (2D) 3.6 cm (3.7 - 5.6) LVIDs (2D) 2.27 cm (2 - 3.8) LV FS (2D) 36.93 % - EF Teichholz (2D) 67.76 % - Ao root diameter (2D) 3.03 cm (2 - 3.7) Volumes/Mass Name Value Normal Range LA ESV SP 4CH (A/L) 16.89 ml - LA ESV SP 4CH (MOD) 15.52 ml - Diastolic/Systolic Function Name Value Normal Range MV E-wave Vmax 0.55 m/sec - MV deceleration time 200.89 msec - MV A-wave Vmax 0.68 m/sec - MV E:A ratio 0.82 ratio - Aortic Valve Name Value Normal Range AV Vmax 1.1 m/sec - AV VTI 15.9 cm - AV peak gradient 4.86 mmHg - AV mean gradient 2.59 mmHg - LVOT diameter 2 cm - LVOT Vmax 1.03 m/sec - LVOT VTI 15.87 cm - LVOT peak gradient 4.24 mmHg - LVOT mean gradient 2.41 mmHg - SV LVOT 49.77 ml - JOSÉ MIGUEL (continuity Vmax) 2.93 cm2 - JOSÉ MIGUEL (continuity VTI) 3.13 cm2 - Tricuspid Valve Name Value Normal Range TR Vmax 2.74 m/sec - TR peak gradient 303 mmHg - RAP 3 mmHg - RVSP 33 mmHg - IVC diameter 1.77 cm (1.2 - 2.3) Pulmonic Valve/Qp:Qs Name Value Normal Range PV Vmax 0.77 m/sec - PV peak gradient 2.4 mmHg - PV acceleration time 114.18 msec - Echocardiogram Limited Views 12/17/19 14:53 Transthoracic Echocardiogram Indication: R/O Vegetations BP: 144/83 HR: 133 Conclusions *Global left ventricular systolic function is mildly decreased. *The estimated ejection fraction is 45-50%. *A trivial pericardial effusion is visualized. Findings Left Ventricle: The left ventricular chamber size is normal. Global left ventricular systolic function is mildly decreased. The estimated ejection fraction is 45-50%. Left Atrium: The left atrial chamber size is normal. Right Ventricle: The right ventricular cavity size is normal. Right Atrium: The right atrial cavity size is normal. Aortic Valve: The aortic valve is not well visualized. There is no evidence of aortic regurgitation. Mitral Valve: The mitral valve leaflets are mildly thickened. There is trace of mitral regurgitation. Tricuspid Valve: The tricuspid valve leaflets are mildly thickened. There is trace tricuspid regurgitation. The right ventricular systolic pressure is calculated at 29 mmHg. Pulmonic Valve: The pulmonic valve is not well visualized. There is no evidence of pulmonic regurgitation. Pericardium: A trivial pericardial effusion is visualized. Aorta: There is no dilatation of the ascending aorta. There is no dilatation of the aortic root. Venous: The inferior vena cava appears normal in size. There is a greater than 50% respiratory change in the inferior vena cava dimension. Measurements Chambers 2D Name Value Normal Range IVSd (2D) 0.83 cm (0.6 - 1.1) LVPWd (2D) 0.98 cm (0.6 - 1.1) LVIDd (2D) 3.71 cm (3.7 - 5.6) LVIDs (2D) 2.93 cm (2 - 3.8) LV FS (2D) 21.12 % - EF Teichholz (2D) 43.71 % - Ao root diameter (2D) 3.02 cm (2 - 3.7) Volumes/Mass Name Value Normal Range LA ESV SP 4CH (A/L) 36.8 ml - LA ESV SP 2CH (A/L) 45.89 ml - LA ESV BP (A/L) 42.35 ml - LA ESV BP (A/L) index 26.63 ml/m2 - LA ESV SP 4CH (MOD) 34.42 ml - LA ESV SP 2CH (MOD) 44.21 ml - LA ESV BP (MOD) 39.82 ml - LA ESV BP (MOD) index 25.05 ml/m2 - Aortic Valve Name Value Normal Range LVOT diameter 1.63 cm - Tricuspid Valve Name Value Normal Range TR Vmax 2.56 m/sec - TR peak gradient 26 mmHg - RAP 3 mmHg - RVSP 29 mmHg - IVC diameter 1.83 cm (1.2 - 2.3) Dela Cruz/IV: Voiding Method Incontinent IV Catheter Type [Forearm] Peripheral IV IV Catheter Type [Left Forearm INT / Saline Lock ] IV Catheter Type [Right INT / Saline Lock Antecubital] IV Catheter Type [Right Hand] INT / Saline Lock IV Catheter Type [Right Wrist] Peripheral IV IV Catheter Type [Left Wrist] Peripheral IV IV Catheter Type [Left Peripheral IV Antecubital] IV Catheter Type [Right INT / Saline Lock Forearm] IV Catheter Type [Left Hand] INT / Saline Lock Active Medications - Current Medications Current Medications: Generic Name Dose Route Start Last Admin Trade Name Freq PRN Reason Stop Dose Admin Albuterol 2.5 mg 03/25/20 19:25 Proventil IH Q4HRT PRN Shortness Of Breath Albuterol/Ipratropium 1 ampul 03/30/20 20:00 04/03/20 08:08 Duoneb *Not For Prn Use* IH 1 ampul BIDRT LUCHO Administration Lipase/Protease/Amylase 1 each 11/23/19 11:50 Pancreaze 10,500 Unit FEEDTUBE PRN PRN Use w/ sod bicarb for FT Bisacodyl 10 mg 02/06/20 13:57 Dulcolax IL QDAY PRN Constipation unrelieved by MOM Enoxaparin Sodium 40 mg 03/07/20 22:00 04/02/20 22:12 Enoxaparin SUB-Q 40 mg QDAY@2200 LUCHO Administration Glycopyrrolate 2 mg 12/31/19 20:00 04/02/20 22:12 Robinul PO 2 mg TID LUCHO Administration Haloperidol Lactate 5 mg 03/05/20 09:22 04/02/20 14:02 Haldol IM 5 mg Q6H PRN Administration Agitation Hydralazine HCl 10 mg 11/24/19 00:45 03/03/20 05:57 Apresoline IV 10 mg Q6H PRN Administration SBP > 160 Hydroxyzine Pamoate 25 mg 12/06/19 10:00 04/02/20 22:12 Vistaril PO 25 mg BID LUCHO Administration Lansoprazole 30 mg 11/27/19 10:00 04/02/20 10:29 Prevacid Solutab FEEDTUBE 30 mg QDAY LUCHO Administration Levetiracetam 500 mg 11/29/19 10:00 04/02/20 22:12 Keppra PO 500 mg BID LUCHO Administration Mirtazapine 30 mg 12/06/19 10:00 04/02/20 10:29 Remeron PO 30 mg DAILY LUCHO Administration Nicotine 21 mg 02/16/20 13:00 04/02/20 10:28 Habitrol TD 21 mg QDAY LUCHO Administration Ondansetron HCl 4 mg 12/10/19 07:53 02/25/20 02:51 Zofran IV 4 mg Q4H PRN Administration Nausea And Vomiting Polyethylene Glycol 17 gm 02/06/20 13:57 Miralax 3350 PO QDAY PRN Constipation Quetiapine Fumarate 100 mg 03/06/20 10:00 04/02/20 22:12 Seroquel FEEDTUBE 100 mg BID LUCHO Administration Scopolamine 1 each 02/08/20 15:00 04/02/20 10:29 Transderm-Scop TD 1 each Q3D LUCHO Administration Sertraline HCl 25 mg 01/01/20 10:00 04/02/20 10:29 Zoloft PO 25 mg QDAY LUCHO Administration Simple Syrup 15 ml 11/23/19 11:50 Simple Syrup FEEDTUBE PRN PRN Hypoglycemia BG<70 Simple Syrup 30 ml 11/23/19 11:50 Simple Syrup FEEDTUBE PRN PRN Hypoglycemia Sodium Bicarbonate 325 mg 11/23/19 11:50 Sodium Bicarbonate FEEDTUBE PRN PRN For Clogged Feeding Tube Nutrition/Malnutrition Assess - Dietary Evaluation Nutrition/Malnutrition Findings: Nutrition Notes Start: 11/23/19 11:29 Freq: Status: Active Protocol: Document 03/27/20 10:42 EVELIA (Rec: 03/27/20 10:48 EVELIA [email or web address]) Nutrition Notes Initial or Follow up Reassessment Other Pertinent Diagnosis s/p Cardiac arrest, acute metabolic encephalopathy Current Diet Jevity 1.2 at 60ml/hr Labs/Tests Reviewed Pertinent Medications Reviewed Height 5 ft 6 in Weight 49 kg [place] Body Weight (kg) 59.09 BMI 17.4 Subjective/Other Information RD spoke with RN via telephone this am (10:39). Pt tolerating TF at goal rate. Pt receiving Osmolite 1.5 at this time, however, Jevity 1.2 back in stock today. Pt awaiting placement. Burn Absent Trauma Absent #2 Nutrition Diagnosis Malnutrition Diagnosis Progress(for reassessment Continues documentation) #1 Nutrition Diagnosis Inadequate oral intake Diagnosis Progress(for reassessment Continues documentation) Is patient on ventilator? No Is Patient Ambulatory and/or Out of Bed No REE-([facility]-confined to bed) 1326.792 Kcal/Kg value to use for calculation 35 Approximate Energy Requirements Using 1715 kcal/Kg Calculation Used for Recommendations Kcal/kg Additional Notes Pro needs 1.2-1.5g/k-74g/ day Fluid needs 1ml/kcal Nutrition Intervention Nutrition Support: Change TF back to Jevity 1.2 at 60ml/hr Flush 100ml q4h Kcal 1,728 Protein (gm) 80 Fluid (mL) 1,162 Fiber (gm) 26 Goal #1 TF tolerance Goal #2 TF to meet 100% energy and pro needs Goal #3 Wt maintenance and/or gain Follow-Up By: 04/03/20 Additional Comments F/U: stable TF, wt
[2020-04-03] MEDS: NICOTINE 21 MG/24 HR PATCH TD SCH (10:51)
[2020-04-03] MEDS: SERTRALINE 50 MG TAB PO SCH (10:51)
[2020-04-03] MEDS: hydrOXYzine PAMOATE 25 MG CAP PO SCH ×2 (10:51→22:51)
[2020-04-03] MEDS: QUEtiapine 100 MG TAB FEEDTUBE SCH ×2 (10:51→22:52)
[2020-04-03] MEDS: levETIRAcetam 500 MG/5 ML ORAL LIQD PO SCH ×2 (10:51→22:52)
[2020-04-03] MEDS: MIRTAZAPINE 30 MG TAB PO SCH (10:52)
[2020-04-03] MEDS: LANSOPRAZOLE 30 MG SOLUTAB FEEDTUBE SCH (10:53)
[2020-04-03] MEDS: ENOXAPARIN 40 MG/0.4 ML INJ SUB-Q SCH (22:52)
[2020-04-03] MEDS: HALOPERIDOL LACTATE 5 MG/1 ML INJ IM PRN (22:52)
[2020-04-04] MEDS: IPRATROPIUM/ALBUTEROL SULFATE 3 ML AMPUL.NEB IH SCH ×2 (07:46→19:41)
[2020-04-04] MEDS: GLYCOPYRROLATE 1 MG TAB PO SCH ×3 (08:00→20:54)
[2020-04-04] MEDS: hydrOXYzine PAMOATE 25 MG CAP PO SCH ×2 (15:37→21:58)
[2020-04-04] MEDS: LANSOPRAZOLE 30 MG SOLUTAB FEEDTUBE SCH (15:38)
[2020-04-04] MEDS: MIRTAZAPINE 30 MG TAB PO SCH (15:38)
[2020-04-04] MEDS: levETIRAcetam 500 MG/5 ML ORAL LIQD PO SCH ×2 (15:39→21:58)
[2020-04-04] MEDS: NICOTINE 21 MG/24 HR PATCH TD SCH (15:39)
[2020-04-04] MEDS: QUEtiapine 100 MG TAB FEEDTUBE SCH ×2 (15:39→22:01)
[2020-04-04] MEDS: SERTRALINE 50 MG TAB PO SCH (15:40)
--- NOTE | 2020-04-04 15:43 | Progress Note ---
Assessment and Plan Assessment and plan: Cardiopulmonary arrest outside the hospital; Status post CPR' Anoxic brain injury: suspected CT head: No acute abnormality. EEG ordered showed Generalized slowing. No seizures or epileptiform activity. -Patient now alert and awake responding appropriately -As needed haldol for agitation Acute Respiratory failure status post trach and PEG 12/13/2019 -due to MSSA PNA, on T-piece - CTA was done and negative for PE, - Echo quality is poor, showed diastolic dysfunction - continue weaning as tolerated -Continue appropriate and adequate tracheostomy care Tracheostomy site ulceration -Continue appropriate wound management try to keep area dry. Anemia, microcytic - Status post 3 units PRBC transfusion, H&H low stable Acute metabolic encephalopathy/toxic encephalopathy due to the above - cont supportive care Hyperammonemia - likely from liver disease related to EtOH abuse - Patient had elevated ammonia level and treated with lactulose Metabolic Acidosis -Alcohol ketoacidosis vs hypoprofusion -Continue to monitor ELevated LFTs, stable now - due to ischemic hepatitis. Leucocytosis with sepsis - Source MRSA bacteremia and MSSA pneumonia. UA showed pyuria. RUQ US showed no ascites. - Repeat TTE negative for vegetation. Completed 7 days of Ceftriaxone on 11/29/2019. -Treated with Abx vancomycin 1 gm IV q 12 hour total 2 week till 12/30/2019 Severe protein calorie malnutrition Dietitian following MSSA pneumonia: Status post vancomycin till 12/30/2019 Alcohol use Disorder - given ongoing Alcohol use almost daily, s/p IV Thiamine - monitor Severe hypokalemia -Repleted Seizure disorder: treated with Keppra H. Influenzae, tracheobronchitis, treated with abx Moderate to severe fecal impaction - will add stool softner DNR CODE STATUS Awaiting placement History Interval history: Patient seen and examined at the bedside Chart and medications reviewed Patient feels better no new complaints Confused at times Vital signs noted Hospitalist Physical - Constitutional Vitals: Temp Pulse Resp BP Pulse Ox 97.9 F 86 18 126/76 95 04/04/20 12:19 04/04/20 12:19 04/04/20 12:19 04/04/20 12:19 04/04/20 12:19 General appearance: Present: no acute distress, cachectic, disheveled, other (Minimally communicative) - EENT Eyes: Present: PERRL, EOM intact - Neck Neck: Present: supple, normal ROM - Respiratory Respiratory effort: normal Respiratory: bilateral: diminished, negative: rales, rhonchi, wheezing - Cardiovascular Rhythm: regular Heart Sounds: Present: S1 & S2 - Extremities Extremities: no ischemia, No edema - Abdominal General gastrointestinal: soft, non-tender, non-distended, normal bowel sounds - Integumentary Integumentary: Present: clear, warm - Psychiatric Psychiatric: cooperative, other (Confused at times) - Neurologic Neurologic: moves all extremities HEART Score - HEART Score Troponin: Troponin T < 0.010 ng/mL (0.00-0.029) 11/22/19 23:27 Results - Labs CBC & Chem 7: 03/25/20 04:28 03/25/20 04:28 Labs: Laboratory Last Values WBC 9.0 K/mm3 (4.5-11.0) 03/25/20 04:28 RBC 3.65 M/mm3 (3.65-5.03) 03/25/20 04:28 Hgb 10.8 gm/dl (10.1-14.3) 03/25/20 04:28 Hct 32.5 % (30.3-42.9) 03/25/20 04:28 MCV 89 fl (79-97) 03/25/20 04:28 MCH 30 pg (28-32) 03/25/20 04:28 MCHC 33 % (30-34) 03/25/20 04:28 RDW 14.1 % (13.2-15.2) 03/25/20 04:28 Plt Count 423 K/mm3 (140-440) 03/25/20 04:28 Lymph % (Auto) 27.8 % (13.4-35.0) 03/06/20 03:37 [place] % (Auto) 9.1 % (0.0-7.3) H 03/06/20 03:37 Eos % (Auto) 2.8 % (0.0-4.3) 03/06/20 03:37 Baso % (Auto) 0.7 % (0.0-1.8) 03/06/20 03:37 Lymph # 2.2 K/mm3 (1.2-5.4) 03/06/20 03:37 [place] # 0.7 K/mm3 (0.0-0.8) 03/06/20 03:37 Eos # 0.2 K/mm3 (0.0-0.4) 03/06/20 03:37 Baso # 0.1 K/mm3 (0.0-0.1) 03/06/20 03:37 Add Manual Diff Complete 12/25/19 03:47 Total Counted 200 12/25/19 03:47 Seg Neutrophils % 59.6 % (40.0-70.0) 03/06/20 03:37 Seg Neuts % (Manual) 97.5 % (40.0-70.0) H 12/25/19 03:47 Band Neutrophils % 0 % 12/25/19 03:47 Lymphocytes % (Manual) 1.0 % (13.4-35.0) L 12/25/19 03:47 Reactive Lymphs % (Man) 0 % 12/25/19 03:47 Monocytes % (Manual) 1.5 % (0.0-7.3) 12/25/19 03:47 Eosinophils % (Manual) 0 % (0.0-4.3) 12/25/19 03:47 Basophils % (Manual) 0 % (0.0-1.8) 12/25/19 03:47 Metamyelocytes % 0 % 12/25/19 03:47 Myelocytes % 0 % 12/25/19 03:47 Promyelocytes % 0 % 12/25/19 03:47 Blast Cells % 0 % 12/25/19 03:47 Nucleated RBC % Not Reportable 12/25/19 03:47 Seg Neutrophils # 4.8 K/mm3 (1.8-7.7) 03/06/20 03:37 Seg Neutrophils # Man 35.3 K/mm3 (1.8-7.7) H 12/25/19 03:47 Band Neutrophils # 0.0 K/mm3 12/25/19 03:47 Lymphocytes # (Manual) 0.4 K/mm3 (1.2-5.4) L 12/25/19 03:47 Abs React Lymphs (Man) 0.0 K/mm3 12/25/19 03:47 Monocytes # (Manual) 0.5 K/mm3 (0.0-0.8) 12/25/19 03:47 Eosinophils # (Manual) 0.0 K/mm3 (0.0-0.4) 12/25/19 03:47 Basophils # (Manual) 0.0 K/mm3 (0.0-0.1) 12/25/19 03:47 Metamyelocytes # 0.0 K/mm3 12/25/19 03:47 Myelocytes # 0.0 K/mm3 12/25/19 03:47 Promyelocytes # 0.0 K/mm3 12/25/19 03:47 Blast Cells # 0.0 K/mm3 12/25/19 03:47 Pathologist Review 12/13/19 07:48 WBC Morphology Not Reportable 12/25/19 03:47 Hypersegmented Neuts Not Reportable 12/25/19 03:47 Hyposegmented Neuts Not Reportable 12/25/19 03:47 Hypogranular Neuts Not Reportable 12/25/19 03:47 Smudge Cells Not Reportable 12/25/19 03:47 Toxic Granulation Not Reportable 12/25/19 03:47 Toxic Vacuolation Not Reportable 12/25/19 03:47 Dohle Bodies Not Reportable 12/25/19 03:47 Pelger-Huet Anomaly Not Reportable 12/25/19 03:47 Dominique Rods Not Reportable 12/25/19 03:47 Platelet Estimate Consistent w auto 12/25/19 03:47 Clumped Platelets Not Reportable 12/25/19 03:47 Plt Clumps, EDTA Not Reportable 12/25/19 03:47 Large Platelets Not Reportable 12/25/19 03:47 Giant Platelets Not Reportable 12/25/19 03:47 Platelet Satelliting Not Reportable 12/25/19 03:47 Plt Morphology Comment Not Reportable 12/25/19 03:47 RBC Morphology Not Reportable 12/25/19 03:47 Dimorphic RBCs Not Reportable 12/25/19 03:47 Polychromasia Not Reportable 12/25/19 03:47 Hypochromasia Not Reportable 12/25/19 03:47 Poikilocytosis Not Reportable 12/25/19 03:47 Anisocytosis 1+ 12/25/19 03:47 Microcytosis Not Reportable 12/25/19 03:47 Macrocytosis Not Reportable 12/25/19 03:47 Spherocytes Not Reportable 12/25/19 03:47 Pappenheimer Bodies Not Reportable 12/25/19 03:47 Sickle Cells Not Reportable 12/25/19 03:47 Target Cells Not Reportable 12/25/19 03:47 Tear Drop Cells Not Reportable 12/25/19 03:47 Ovalocytes Not Reportable 12/25/19 03:47 Helmet Cells Not Reportable 12/25/19 03:47 Frias-Webster Bodies Not Reportable 12/25/19 03:47 Francisco Rings Not Reportable 12/25/19 03:47 [place] Cells Not Reportable 12/25/19 03:47 Bite Cells Not Reportable 12/25/19 03:47 Crenated Cell Not Reportable 12/25/19 03:47 Elliptocytes Not Reportable 12/25/19 03:47 Acanthocytes (Spur) Not Reportable 12/25/19 03:47 Rouleaux Not Reportable 12/25/19 03:47 Hemoglobin C Crystals Not Reportable 12/25/19 03:47 Schistocytes Not Reportable 12/25/19 03:47 Malaria parasites Not Reportable 12/25/19 03:47 Gregg Bodies Not Reportable 12/25/19 03:47 Hem Pathologist Commnt No 12/25/19 03:47 PT 17.0 Sec. (12.2-14.9) H 11/23/19 03:47 INR 1.36 (0.87-1.13) H 11/23/19 03:47 APTT 128.2 Sec. (24.2-36.6) H* 11/23/19 03:47 Heparin Anti-Xa Level 0.31 U.I./ml (0.3-0.7) 11/23/19 09:03 ABG pH 7.433 pH Units (7.350-7.450) 03/08/20 13:25 ABG pCO2 40.2 mm Hg 03/08/20 13:25 ABG pO2 71.1 mm Hg (80.0-90.0) L 03/08/20 13:25 ABG HCO3 26.2 mmol/L (20.0-26.0) H 03/08/20 13:25 ABG O2 Saturation 97.0 % (95.0-99.0) 03/08/20 13:25 ABG O2 Content 11.0 (0.0-44) 03/08/20 13:25 ABG Base Excess 1.8 mmol/L (-2.0-3.0) 03/08/20 13:25 ABG Hemoglobin 8.2 gm/dl (12.0-16.0) L 03/08/20 13:25 ABG Carboxyhemoglobin 1.7 % (0.0-5.0) 03/08/20 13:25 ABG Methemoglobin 0.5 % (0.0-1.5) 03/08/20 13:25 Oxyhemoglobin 94.8 % (95.0-99.0) L 03/08/20 13:25 FiO2 21 % 03/08/20 13:25 Sodium 138 mmol/L (137-145) 03/25/20 04:28 Potassium 4.2 mmol/L (3.6-5.0) 03/25/20 04:28 Chloride 99.3 mmol/L (98-107) 03/25/20 04:28 Carbon Dioxide 28 mmol/L (22-30) 03/25/20 04:28 Anion Gap 15 mmol/L 03/25/20 04:28 BUN 23 mg/dL (7-17) H 03/25/20 04:28 Creatinine 0.5 mg/dL (0.7-1.2) L 03/25/20 04:28 Estimated GFR > 60 ml/min 03/25/20 04:28 BUN/Creatinine Ratio 46 % 03/25/20 04:28 Glucose 121 mg/dL (65-100) H 03/25/20 04:28 POC Glucose 102 (70-105) 04/03/20 22:42 Lactic Acid 1.80 mmol/L (0.7-2.0) 11/25/19 05:05 Calcium 10.3 mg/dL (8.4-10.2) H 03/25/20 04:28 Ionized Calcium 4.5 mg/dL (4.8-5.6) L 11/23/19 06:32 Phosphorus 4.20 mg/dL (2.5-4.5) D 11/28/19 08:59 Magnesium 1.90 mg/dL (1.7-2.3) 02/28/20 03:40 Total Bilirubin 0.40 mg/dL (0.1-1.2) 12/13/19 07:48 AST 27 units/L (5-40) 12/13/19 07:48 ALT 26 units/L (7-56) 12/13/19 07:48 Alkaline Phosphatase 316 units/L (35-129) H 12/13/19 07:48 Ammonia 42.0 umol/L (25-60) 11/29/19 13:41 Total Creatine Kinase 139 units/L (30-135) H 11/22/19 23:27 CK-MB (CK-2) 8.3 ng/mL (0.0-4.0) H 11/22/19 23:27 CK-MB (CK-2) Rel Index 5.9 (0-4) H 11/22/19 23:27 Troponin T < 0.010 ng/mL (0.00-0.029) 11/22/19 23:27 Total Protein 6.8 g/dL (6.3-8.2) 12/13/19 07:48 Albumin 2.4 g/dL (3.9-5) L 12/13/19 07:48 Albumin/Globulin Ratio 0.5 % 12/13/19 07:48 Lipase 18 units/L (13-60) 11/23/19 00:34 Procalcitonin 1.09 ng/mL (<0.15) 11/23/19 04:53 TSH 1.010 mlU/mL (0.270-4.200) 02/12/20 07:36 Free T4 1.08 ng/dL (0.76-1.46) 02/12/20 07:36 Urine Color Yellow (Yellow) 12/16/19 Unknown Urine Turbidity Slightly-cloudy (Clear) 12/16/19 Unknown Urine pH 5.0 (5.0-7.0) 12/16/19 Unknown Ur Specific [place] 1.018 (1.003-1.030) 12/16/19 Unknown Urine Protein 30 mg/dl mg/dL (Negative) 12/16/19 Unknown Urine Glucose (UA) Neg mg/dL (Negative) 12/16/19 Unknown Urine Ketones Neg mg/dL (Negative) 12/16/19 Unknown Urine Blood Sm (Negative) 12/16/19 Unknown Urine Nitrite Neg (Negative) 12/16/19 Unknown Urine Bilirubin Neg (Negative) 12/16/19 Unknown Urine Urobilinogen < 2.0 mg/dL (<2.0) 12/16/19 Unknown Ur Leukocyte Esterase Neg (Negative) 12/16/19 Unknown Urine WBC (Auto) 6.0 /HPF (0.0-6.0) 12/16/19 Unknown Urine RBC (Auto) 9.0 /HPF (0.0-6.0) 12/16/19 Unknown U Epithel Cells (Auto) < 1.0 /HPF (0-13.0) 12/16/19 Unknown Urine Bacteria (Auto) 2+ /HPF (Negative) 11/22/19 23:17 Hyaline Casts 3 /LPF 12/16/19 Unknown Granular Casts 3 /LPF 12/16/19 Unknown Urine Mucus Few /HPF 12/16/19 Unknown Vancomycin Trough 33.8 ug/mL (5.0-20.0) H 12/21/19 08:56 Random Vancomycin 16.2 ug/mL (0-40.0) 12/24/19 04:31 Salicylates < 0.3 mg/dL (2.8-20.0) L 11/22/19 23:27 Urine Opiates Screen Presumptive negative 11/22/19 23:17 Urine Methadone Screen Presumptive negative 11/22/19 23:17 Acetaminophen < 5.0 ug/mL (10.0-30.0) L 11/22/19 23:27 Ur Barbiturates Screen Presumptive negative 11/22/19 23:17 Ur Phencyclidine Scrn Presumptive negative 11/22/19 23:17 Ur Amphetamines Screen Presumptive negative 11/22/19 23:17 U Benzodiazepines Scrn Presumptive negative 11/22/19 23:17 Urine Cocaine Screen Presumptive negative 11/22/19 23:17 U Marijuana (THC) Screen Presumptive negative 11/22/19 23:17 Drugs of Abuse Note Disclamer 11/22/19 23:17 Plasma/Serum Alcohol 0.08 % (0-0.07) H 11/22/19 23:27 Coronavirus (PCR) Negative (Negative) 02/05/20 07:50 Hepatitis A IgM Ab Non-reactive (NonReactive) 11/23/19 01:19 Hep Bs Antigen Non-reactive (Negative) 11/23/19 01:19 Hep B Core IgM Ab Non-reactive (NonReactive) 11/23/19 01:19 Hepatitis C Antibody Non-reactive (NonReactive) 11/23/19 01:19 Blood Type O POSITIVE 12/21/19 14:54 Antibody Screen Negative 12/21/19 14:54 Crossmatch See Detail 12/21/19 14:54 - Diagnostic Impressions Diagnostic Impressions: Echocardiogram 11/23/19 03:58 Transthoracic Echocardiogram Indication: Cardiac arrest BP: 131/89 HR: 115 Conclusions *The study quality is technically difficult. *Global left ventricular wall motion and contractility are within normal limits. *The estimated ejection fraction is 55-60%. *Abnormal left ventricular diastolic filling is observed, consistent with impaired relaxation. *There is no pericardial effusion. Findings Procedure Info: The study quality is technically difficult. The study was technically limited due to the patient's inability to lay in the left lateral decubitus position. Left Ventricle: The left ventricular chamber size is normal. There is no left ventricular hypertrophy. Global left ventricular wall motion and contractility are within normal limits. Global left ventricular systolic function is normal. The estimated ejection fraction is 55-60%. Abnormal left ventricular diastolic filling is observed, consistent with impaired relaxation. Left Atrium: The left atrial chamber size is normal. Aortic Valve: The aortic valve leaflets are mildly thickened. Mitral Valve: The mitral valve leaflets are mildly thickened. There is no evidence of mitral regurgitation. Tricuspid Valve: The tricuspid valve leaflets are normal. There is trace tricuspid regurgitation. The right ventricular systolic pressure is calculated at 33 mmHg. Pulmonic Valve: The pulmonic valve appears normal. Pericardium: The pericardium appears normal. There is no pericardial effusion. Aorta: The aorta appears normal. Venous: The inferior vena cava appears normal in size. Measurements Chambers 2D Name Value Normal Range IVSd (2D) 0.94 cm (0.6 - 1.1) LVPWd (2D) 0.81 cm (0.6 - 1.1) LVIDd (2D) 3.6 cm (3.7 - 5.6) LVIDs (2D) 2.27 cm (2 - 3.8) LV FS (2D) 36.93 % - EF Teichholz (2D) 67.76 % - Ao root diameter (2D) 3.03 cm (2 - 3.7) Volumes/Mass Name Value Normal Range LA ESV SP 4CH (A/L) 16.89 ml - LA ESV SP 4CH (MOD) 15.52 ml - Diastolic/Systolic Function Name Value Normal Range MV E-wave Vmax 0.55 m/sec - MV deceleration time 200.89 msec - MV A-wave Vmax 0.68 m/sec - MV E:A ratio 0.82 ratio - Aortic Valve Name Value Normal Range AV Vmax 1.1 m/sec - AV VTI 15.9 cm - AV peak gradient 4.86 mmHg - AV mean gradient 2.59 mmHg - LVOT diameter 2 cm - LVOT Vmax 1.03 m/sec - LVOT VTI 15.87 cm - LVOT peak gradient 4.24 mmHg - LVOT mean gradient 2.41 mmHg - SV LVOT 49.77 ml - JOSÉ MIGUEL (continuity Vmax) 2.93 cm2 - JOSÉ MIGUEL (continuity VTI) 3.13 cm2 - Tricuspid Valve Name Value Normal Range TR Vmax 2.74 m/sec - TR peak gradient 303 mmHg - RAP 3 mmHg - RVSP 33 mmHg - IVC diameter 1.77 cm (1.2 - 2.3) Pulmonic Valve/Qp:Qs Name Value Normal Range PV Vmax 0.77 m/sec - PV peak gradient 2.4 mmHg - PV acceleration time 114.18 msec - Echocardiogram Limited Views 12/17/19 14:53 Transthoracic Echocardiogram Indication: R/O Vegetations BP: 144/83 HR: 133 Conclusions *Global left ventricular systolic function is mildly decreased. *The estimated ejection fraction is 45-50%. *A trivial pericardial effusion is visualized. Findings Left Ventricle: The left ventricular chamber size is normal. Global left ventricular systolic function is mildly decreased. The estimated ejection fraction is 45-50%. Left Atrium: The left atrial chamber size is normal. Right Ventricle: The right ventricular cavity size is normal. Right Atrium: The right atrial cavity size is normal. Aortic Valve: The aortic valve is not well visualized. There is no evidence of aortic regurgitation. Mitral Valve: The mitral valve leaflets are mildly thickened. There is trace of mitral regurgitation. Tricuspid Valve: The tricuspid valve leaflets are mildly thickened. There is trace tricuspid regurgitation. The right ventricular systolic pressure is calculated at 29 mmHg. Pulmonic Valve: The pulmonic valve is not well visualized. There is no evidence of pulmonic regurgitation. Pericardium: A trivial pericardial effusion is visualized. Aorta: There is no dilatation of the ascending aorta. There is no dilatation of the aortic root. Venous: The inferior vena cava appears normal in size. There is a greater than 50% respiratory change in the inferior vena cava dimension. Measurements Chambers 2D Name Value Normal Range IVSd (2D) 0.83 cm (0.6 - 1.1) LVPWd (2D) 0.98 cm (0.6 - 1.1) LVIDd (2D) 3.71 cm (3.7 - 5.6) LVIDs (2D) 2.93 cm (2 - 3.8) LV FS (2D) 21.12 % - EF Teichholz (2D) 43.71 % - Ao root diameter (2D) 3.02 cm (2 - 3.7) Volumes/Mass Name Value Normal Range LA ESV SP 4CH (A/L) 36.8 ml - LA ESV SP 2CH (A/L) 45.89 ml - LA ESV BP (A/L) 42.35 ml - LA ESV BP (A/L) index 26.63 ml/m2 - LA ESV SP 4CH (MOD) 34.42 ml - LA ESV SP 2CH (MOD) 44.21 ml - LA ESV BP (MOD) 39.82 ml - LA ESV BP (MOD) index 25.05 ml/m2 - Aortic Valve Name Value Normal Range LVOT diameter 1.63 cm - Tricuspid Valve Name Value Normal Range TR Vmax 2.56 m/sec - TR peak gradient 26 mmHg - RAP 3 mmHg - RVSP 29 mmHg - IVC diameter 1.83 cm (1.2 - 2.3) [place]/IV: Voiding Method Incontinent IV Catheter Type [Forearm] Peripheral IV IV Catheter Type [Left Forearm INT / Saline Lock ] IV Catheter Type [Right INT / Saline Lock Antecubital] IV Catheter Type [Right Hand] INT / Saline Lock IV Catheter Type [Right Wrist] Peripheral IV IV Catheter Type [Left Wrist] Peripheral IV IV Catheter Type [Left Peripheral IV Antecubital] IV Catheter Type [Right INT / Saline Lock Forearm] IV Catheter Type [Left Hand] INT / Saline Lock Active Medications - Current Medications Current Medications: Generic Name Dose Route Start Last Admin Trade Name Freq PRN Reason Stop Dose Admin Albuterol 2.5 mg 03/25/20 19:25 Proventil IH Q4HRT PRN Shortness Of Breath Albuterol/Ipratropium 1 ampul 03/30/20 20:00 04/04/20 07:46 Duoneb *Not For Prn Use* IH 1 ampul BIDRT LUCHO Administration Lipase/Protease/Amylase 1 each 11/23/19 11:50 Pancreaze 10,500 Unit FEEDTUBE PRN PRN Use w/ sod bicarb for FT Bisacodyl 10 mg 02/06/20 13:57 Dulcolax [place] QDAY PRN Constipation unrelieved by MOM Enoxaparin Sodium 40 mg 03/07/20 22:00 04/03/20 22:52 Enoxaparin SUB-Q 40 mg QDAY@2200 LUCHO Administration Glycopyrrolate 2 mg 12/31/19 20:00 04/04/20 15:38 Robinul PO 2 mg TID LUCHO Administration Haloperidol Lactate 5 mg 03/05/20 09:22 04/03/20 22:52 Haldol IM 5 mg Q6H PRN Administration Agitation Hydralazine HCl 10 mg 11/24/19 00:45 03/03/20 05:57 Apresoline IV 10 mg Q6H PRN Administration SBP > 160 Hydroxyzine Pamoate 25 mg 12/06/19 10:00 04/04/20 15:37 Vistaril PO 25 mg BID LUCHO Administration Lansoprazole 30 mg 11/27/19 10:00 04/04/20 15:38 Prevacid Solutab FEEDTUBE 30 mg QDAY LUCHO Administration Levetiracetam 500 mg 11/29/19 10:00 04/04/20 15:39 Keppra PO 500 mg BID LUCHO Administration Mirtazapine 30 mg 12/06/19 10:00 04/04/20 15:38 Remeron PO 30 mg DAILY LUCHO Administration Nicotine 21 mg 02/16/20 13:00 04/04/20 15:39 Habitrol TD 21 mg QDAY LUCHO Administration Ondansetron HCl 4 mg 12/10/19 07:53 02/25/20 02:51 Zofran IV 4 mg Q4H PRN Administration Nausea And Vomiting Polyethylene Glycol 17 gm 02/06/20 13:57 Miralax 3350 PO QDAY PRN Constipation Quetiapine Fumarate 100 mg 03/06/20 10:00 04/04/20 15:39 Seroquel FEEDTUBE 100 mg BID LUCHO Administration Scopolamine 1 each 02/08/20 15:00 04/02/20 10:29 Transderm-Scop TD 1 each Q3D LUCHO Administration Sertraline HCl 25 mg 01/01/20 10:00 04/04/20 15:40 Zoloft PO 25 mg QDAY LUCHO Administration Simple Syrup 15 ml 11/23/19 11:50 Simple Syrup FEEDTUBE PRN PRN Hypoglycemia BG<70 Simple Syrup 30 ml 11/23/19 11:50 Simple Syrup FEEDTUBE PRN PRN Hypoglycemia Sodium Bicarbonate 325 mg 11/23/19 11:50 Sodium Bicarbonate FEEDTUBE PRN PRN For Clogged Feeding Tube Nutrition/Malnutrition Assess - Dietary Evaluation Nutrition/Malnutrition Findings: Nutrition Notes Start: 11/23/19 11:29 Freq: Status: Active Protocol: Document 04/03/20 10:36 EVELIA (Rec: 04/03/20 10:44 EVELIA [email or web address]) Nutrition Notes Initial or Follow up Reassessment Other Pertinent Diagnosis s/p Cardiac arrest, acute metabolic encephalopathy Current Diet [facility] soft with chopped meats Labs/Tests Reviewed Pertinent Medications Reviewed Height 5 ft 6 in Weight 49.2 kg [place] Body Weight (kg) 59.09 BMI 17.5 Subjective/Other Information Diet advanced on 03/31 per PATIENT ACCOUNT SPECIALIST recommendation; TF d/c'ed. Pt tolerating PO intake per RN report. Pt has consumed 44% of meals since diet advanced. Pt remains confused and requires restraints as she frequently tries to get out of bed on her own. She is still awaiting placement. Percent of energy/protein needs met: 71% energy 75% pro Burn Absent Trauma Absent Minimum of two criteria Yes Interpretation of Weight Loss (severe) >2% in 1 week Muscle Mass Mild Depletion (non-severe) #2 Nutrition Diagnosis Malnutrition Diagnosis Progress(for reassessment Continues documentation) #1 Nutrition Diagnosis Inadequate oral intake As Evidenced by Signs and Symptoms pt tolerating PO diet Diagnosis Progress(for reassessment Improved documentation) Is patient on ventilator? No Is Patient Ambulatory and/or Out of Bed No REE-([facility]-confined to bed) 1329.192 Kcal/Kg value to use for calculation 35 Approximate Energy Requirements Using 1722 kcal/Kg Calculation Used for Recommendations Kcal/kg Additional Notes Pro needs 1.2-1.5g/k-74g/ day Fluid needs 1ml/kcal Nutrition Intervention Change Diet Order: Continue current diet order; provide assistance at meal times as needed Add Supplement/Snack (indicate name/kcal Ensure Enlive TID /protein ) Provides kCal: 1,050 Provides Protein (gm) 60 Goal #1 PO intake of meals plus ONS to meet 100% energy and pro needs Goal #2 Wt maintenance and/or gain Anticipated Discharge Needs: Continue ONS 1-2 times daily for wt maintenance Follow-Up By: 04/08/20 Additional Comments F/U: intakes (meals/ONS), wt
[2020-04-04] MEDS: ENOXAPARIN 40 MG/0.4 ML INJ SUB-Q SCH (21:58)
[2020-04-05] MEDS: IPRATROPIUM/ALBUTEROL SULFATE 3 ML AMPUL.NEB IH SCH ×2 (07:28→20:28)
[2020-04-05] MEDS: GLYCOPYRROLATE 1 MG TAB PO SCH ×3 (09:00→21:42)
[2020-04-05] MEDS: SERTRALINE 50 MG TAB PO SCH (14:45)
[2020-04-05] MEDS: levETIRAcetam 500 MG/5 ML ORAL LIQD PO SCH ×2 (14:46→21:42)
[2020-04-05] MEDS: hydrOXYzine PAMOATE 25 MG CAP PO SCH ×2 (14:46→21:42)
[2020-04-05] MEDS: NICOTINE 21 MG/24 HR PATCH TD SCH (14:46)
[2020-04-05] MEDS: SCOPOLAMINE TRANSDERMAL PATCH 72 HR TD SCH (14:46)
[2020-04-05] MEDS: QUEtiapine 100 MG TAB FEEDTUBE SCH ×2 (14:47→21:42)
[2020-04-05] MEDS: LANSOPRAZOLE 30 MG SOLUTAB FEEDTUBE SCH (14:47)
[2020-04-05] MEDS: MIRTAZAPINE 30 MG TAB PO SCH (14:56)
--- NOTE | 2020-04-05 21:34 | Progress Note ---
Assessment and Plan Assessment and plan: Cardiopulmonary arrest outside the hospital; Status post CPR' Anoxic brain injury: suspected CT head: No acute abnormality. EEG ordered showed Generalized slowing. No seizures or epileptiform activity. -Patient now alert and awake responding appropriately -As needed haldol for agitation Acute Respiratory failure status post trach and PEG 12/13/2019 Tracheostomy site healed Tracheostomy site ulceration; resolved Anemia, microcytic - Status post 3 units PRBC transfusion, H&H low stable Acute metabolic encephalopathy/toxic encephalopathy due to the above - cont supportive care Hyperammonemia - likely from liver disease related to EtOH abuse - Patient had elevated ammonia level and treated with lactulose Metabolic Acidosis -Alcohol ketoacidosis vs hypoprofusion -Continue to monitor ELevated LFTs, stable now - due to ischemic hepatitis. Leucocytosis with sepsis - Source MRSA bacteremia and MSSA pneumonia. UA showed pyuria. RUQ US showed no ascites. - Repeat TTE negative for vegetation. Completed 7 days of Ceftriaxone on 11/29/2019. -Treated with Abx vancomycin 1 gm IV q 12 hour total 2 week till 12/30/2019 Severe protein calorie malnutrition Dietitian following MSSA pneumonia: Status post vancomycin till 12/30/2019 Alcohol use Disorder - given ongoing Alcohol use almost daily, s/p IV Thiamine - monitor Severe hypokalemia -Repleted Seizure disorder: treated with Keppra H. Influenzae, tracheobronchitis, treated with abx Moderate to severe fecal impaction - will add stool softner DNR CODE STATUS Awaiting placement History Interval history: Patient seen and examined at the bedside Tests and reports reviewed Patient is clinically stable awaiting placement Vital signs noted Hospitalist Physical - Constitutional Vitals: Temp Pulse Resp BP Pulse Ox 98.0 F 67 22 103/80 96 04/05/20 20:50 04/05/20 20:50 04/05/20 20:50 04/05/20 20:50 04/05/20 20:50 General appearance: Present: no acute distress, cachectic, disheveled - EENT Eyes: Present: PERRL, EOM intact - Neck Neck: Present: supple, normal ROM - Respiratory Respiratory effort: normal Respiratory: bilateral: diminished, negative: rales, rhonchi, wheezing - Cardiovascular Rhythm: regular Heart Sounds: Present: S1 & S2 - Extremities Extremities: no ischemia, No edema - Abdominal General gastrointestinal: soft, non-tender, non-distended, normal bowel sounds - Integumentary Integumentary: Present: clear, warm - Psychiatric Psychiatric: appropriate mood/affect, other (Confused at times) - Neurologic Neurologic: moves all extremities HEART Score - HEART Score Troponin: Troponin T < 0.010 ng/mL (0.00-0.029) 11/22/19 23:27 Results - Labs CBC & Chem 7: 03/25/20 04:28 03/25/20 04:28 Labs: Laboratory Last Values WBC 9.0 K/mm3 (4.5-11.0) 03/25/20 04:28 RBC 3.65 M/mm3 (3.65-5.03) 03/25/20 04:28 Hgb 10.8 gm/dl (10.1-14.3) 03/25/20 04:28 Hct 32.5 % (30.3-42.9) 03/25/20 04:28 MCV 89 fl (79-97) 03/25/20 04:28 MCH 30 pg (28-32) 03/25/20 04:28 MCHC 33 % (30-34) 03/25/20 04:28 RDW 14.1 % (13.2-15.2) 03/25/20 04:28 Plt Count 423 K/mm3 (140-440) 03/25/20 04:28 Lymph % (Auto) 27.8 % (13.4-35.0) 03/06/20 03:37 [place] % (Auto) 9.1 % (0.0-7.3) H 03/06/20 03:37 Eos % (Auto) 2.8 % (0.0-4.3) 03/06/20 03:37 Baso % (Auto) 0.7 % (0.0-1.8) 03/06/20 03:37 Lymph # 2.2 K/mm3 (1.2-5.4) 03/06/20 03:37 [place] # 0.7 K/mm3 (0.0-0.8) 03/06/20 03:37 Eos # 0.2 K/mm3 (0.0-0.4) 03/06/20 03:37 Baso # 0.1 K/mm3 (0.0-0.1) 03/06/20 03:37 Add Manual Diff Complete 12/25/19 03:47 Total Counted 200 12/25/19 03:47 Seg Neutrophils % 59.6 % (40.0-70.0) 03/06/20 03:37 Seg Neuts % (Manual) 97.5 % (40.0-70.0) H 12/25/19 03:47 Band Neutrophils % 0 % 12/25/19 03:47 Lymphocytes % (Manual) 1.0 % (13.4-35.0) L 12/25/19 03:47 Reactive Lymphs % (Man) 0 % 12/25/19 03:47 Monocytes % (Manual) 1.5 % (0.0-7.3) 12/25/19 03:47 Eosinophils % (Manual) 0 % (0.0-4.3) 12/25/19 03:47 Basophils % (Manual) 0 % (0.0-1.8) 12/25/19 03:47 Metamyelocytes % 0 % 12/25/19 03:47 Myelocytes % 0 % 12/25/19 03:47 Promyelocytes % 0 % 12/25/19 03:47 Blast Cells % 0 % 12/25/19 03:47 Nucleated RBC % Not Reportable 12/25/19 03:47 Seg Neutrophils # 4.8 K/mm3 (1.8-7.7) 03/06/20 03:37 Seg Neutrophils # Man 35.3 K/mm3 (1.8-7.7) H 12/25/19 03:47 Band Neutrophils # 0.0 K/mm3 12/25/19 03:47 Lymphocytes # (Manual) 0.4 K/mm3 (1.2-5.4) L 12/25/19 03:47 Abs React Lymphs (Man) 0.0 K/mm3 12/25/19 03:47 Monocytes # (Manual) 0.5 K/mm3 (0.0-0.8) 12/25/19 03:47 Eosinophils # (Manual) 0.0 K/mm3 (0.0-0.4) 12/25/19 03:47 Basophils # (Manual) 0.0 K/mm3 (0.0-0.1) 12/25/19 03:47 Metamyelocytes # 0.0 K/mm3 12/25/19 03:47 Myelocytes # 0.0 K/mm3 12/25/19 03:47 Promyelocytes # 0.0 K/mm3 12/25/19 03:47 Blast Cells # 0.0 K/mm3 12/25/19 03:47 Pathologist Review 12/13/19 07:48 WBC Morphology Not Reportable 12/25/19 03:47 Hypersegmented Neuts Not Reportable 12/25/19 03:47 Hyposegmented Neuts Not Reportable 12/25/19 03:47 Hypogranular Neuts Not Reportable 12/25/19 03:47 Smudge Cells Not Reportable 12/25/19 03:47 Toxic Granulation Not Reportable 12/25/19 03:47 Toxic Vacuolation Not Reportable 12/25/19 03:47 Dohle Bodies Not Reportable 12/25/19 03:47 Pelger-Huet Anomaly Not Reportable 12/25/19 03:47 Dominique Rods Not Reportable 12/25/19 03:47 Platelet Estimate Consistent w auto 12/25/19 03:47 Clumped Platelets Not Reportable 12/25/19 03:47 Plt Clumps, EDTA Not Reportable 12/25/19 03:47 Large Platelets Not Reportable 12/25/19 03:47 Giant Platelets Not Reportable 12/25/19 03:47 Platelet Satelliting Not Reportable 12/25/19 03:47 Plt Morphology Comment Not Reportable 12/25/19 03:47 RBC Morphology Not Reportable 12/25/19 03:47 Dimorphic RBCs Not Reportable 12/25/19 03:47 Polychromasia Not Reportable 12/25/19 03:47 Hypochromasia Not Reportable 12/25/19 03:47 Poikilocytosis Not Reportable 12/25/19 03:47 Anisocytosis 1+ 12/25/19 03:47 Microcytosis Not Reportable 12/25/19 03:47 Macrocytosis Not Reportable 12/25/19 03:47 Spherocytes Not Reportable 12/25/19 03:47 Pappenheimer Bodies Not Reportable 12/25/19 03:47 Sickle Cells Not Reportable 12/25/19 03:47 Target Cells Not Reportable 12/25/19 03:47 Tear Drop Cells Not Reportable 12/25/19 03:47 Ovalocytes Not Reportable 12/25/19 03:47 Helmet Cells Not Reportable 12/25/19 03:47 [place] Bodies Not Reportable 12/25/19 03:47 [place] Rings Not Reportable 12/25/19 03:47 [place] Cells Not Reportable 12/25/19 03:47 Bite Cells Not Reportable 12/25/19 03:47 Crenated Cell Not Reportable 12/25/19 03:47 Elliptocytes Not Reportable 12/25/19 03:47 Acanthocytes (Spur) Not Reportable 12/25/19 03:47 Rouleaux Not Reportable 12/25/19 03:47 Hemoglobin C Crystals Not Reportable 12/25/19 03:47 Schistocytes Not Reportable 12/25/19 03:47 Malaria parasites Not Reportable 12/25/19 03:47 [place] Bodies Not Reportable 12/25/19 03:47 Hem Pathologist Commnt No 12/25/19 03:47 PT 17.0 Sec. (12.2-14.9) H 11/23/19 03:47 INR 1.36 (0.87-1.13) H 11/23/19 03:47 APTT 128.2 Sec. (24.2-36.6) H* 11/23/19 03:47 Heparin Anti-Xa Level 0.31 U.I./ml (0.3-0.7) 11/23/19 09:03 ABG pH 7.433 pH Units (7.350-7.450) 03/08/20 13:25 ABG pCO2 40.2 mm Hg 03/08/20 13:25 ABG pO2 71.1 mm Hg (80.0-90.0) L 03/08/20 13:25 ABG HCO3 26.2 mmol/L (20.0-26.0) H 03/08/20 13:25 ABG O2 Saturation 97.0 % (95.0-99.0) 03/08/20 13:25 ABG O2 Content 11.0 (0.0-44) 03/08/20 13:25 ABG Base Excess 1.8 mmol/L (-2.0-3.0) 03/08/20 13:25 ABG Hemoglobin 8.2 gm/dl (12.0-16.0) L 03/08/20 13:25 ABG Carboxyhemoglobin 1.7 % (0.0-5.0) 03/08/20 13:25 ABG Methemoglobin 0.5 % (0.0-1.5) 03/08/20 13:25 Oxyhemoglobin 94.8 % (95.0-99.0) L 03/08/20 13:25 FiO2 21 % 03/08/20 13:25 Sodium 138 mmol/L (137-145) 03/25/20 04:28 Potassium 4.2 mmol/L (3.6-5.0) 03/25/20 04:28 Chloride 99.3 mmol/L (98-107) 03/25/20 04:28 Carbon Dioxide 28 mmol/L (22-30) 03/25/20 04:28 Anion Gap 15 mmol/L 03/25/20 04:28 BUN 23 mg/dL (7-17) H 03/25/20 04:28 Creatinine 0.5 mg/dL (0.7-1.2) L 03/25/20 04:28 Estimated GFR > 60 ml/min 03/25/20 04:28 BUN/Creatinine Ratio 46 % 03/25/20 04:28 Glucose 121 mg/dL (65-100) H 03/25/20 04:28 POC Glucose 117 (70-105) H 04/05/20 00:16 Lactic Acid 1.80 mmol/L (0.7-2.0) 11/25/19 05:05 Calcium 10.3 mg/dL (8.4-10.2) H 03/25/20 04:28 Ionized Calcium 4.5 mg/dL (4.8-5.6) L 11/23/19 06:32 Phosphorus 4.20 mg/dL (2.5-4.5) D 11/28/19 08:59 Magnesium 1.90 mg/dL (1.7-2.3) 02/28/20 03:40 Total Bilirubin 0.40 mg/dL (0.1-1.2) 12/13/19 07:48 AST 27 units/L (5-40) 12/13/19 07:48 ALT 26 units/L (7-56) 12/13/19 07:48 Alkaline Phosphatase 316 units/L (35-129) H 12/13/19 07:48 Ammonia 42.0 umol/L (25-60) 11/29/19 13:41 Total Creatine Kinase 139 units/L (30-135) H 11/22/19 23:27 CK-MB (CK-2) 8.3 ng/mL (0.0-4.0) H 11/22/19 23:27 CK-MB (CK-2) Rel Index 5.9 (0-4) H 11/22/19 23:27 Troponin T < 0.010 ng/mL (0.00-0.029) 11/22/19 23:27 Total Protein 6.8 g/dL (6.3-8.2) 12/13/19 07:48 Albumin 2.4 g/dL (3.9-5) L 12/13/19 07:48 Albumin/Globulin Ratio 0.5 % 12/13/19 07:48 Lipase 18 units/L (13-60) 11/23/19 00:34 Procalcitonin 1.09 ng/mL (<0.15) 11/23/19 04:53 TSH 1.010 mlU/mL (0.270-4.200) 02/12/20 07:36 Free T4 1.08 ng/dL (0.76-1.46) 02/12/20 07:36 Urine Color Yellow (Yellow) 12/16/19 Unknown Urine Turbidity Slightly-cloudy (Clear) 12/16/19 Unknown Urine pH 5.0 (5.0-7.0) 12/16/19 Unknown Ur Specific [place] 1.018 (1.003-1.030) 12/16/19 Unknown Urine Protein 30 mg/dl mg/dL (Negative) 12/16/19 Unknown Urine Glucose (UA) Neg mg/dL (Negative) 12/16/19 Unknown Urine Ketones Neg mg/dL (Negative) 12/16/19 Unknown Urine Blood Sm (Negative) 12/16/19 Unknown Urine Nitrite Neg (Negative) 12/16/19 Unknown Urine Bilirubin Neg (Negative) 12/16/19 Unknown Urine Urobilinogen < 2.0 mg/dL (<2.0) 12/16/19 Unknown Ur Leukocyte Esterase Neg (Negative) 12/16/19 Unknown Urine WBC (Auto) 6.0 /HPF (0.0-6.0) 12/16/19 Unknown Urine RBC (Auto) 9.0 /HPF (0.0-6.0) 12/16/19 Unknown U Epithel Cells (Auto) < 1.0 /HPF (0-13.0) 12/16/19 Unknown Urine Bacteria (Auto) 2+ /HPF (Negative) 11/22/19 23:17 Hyaline Casts 3 /LPF 12/16/19 Unknown Granular Casts 3 /LPF 12/16/19 Unknown Urine Mucus Few /HPF 12/16/19 Unknown Vancomycin Trough 33.8 ug/mL (5.0-20.0) H 12/21/19 08:56 Random Vancomycin 16.2 ug/mL (0-40.0) 12/24/19 04:31 Salicylates < 0.3 mg/dL (2.8-20.0) L 11/22/19 23:27 Urine Opiates Screen Presumptive negative 11/22/19 23:17 Urine Methadone Screen Presumptive negative 11/22/19 23:17 Acetaminophen < 5.0 ug/mL (10.0-30.0) L 11/22/19 23:27 Ur Barbiturates Screen Presumptive negative 11/22/19 23:17 Ur Phencyclidine Scrn Presumptive negative 11/22/19 23:17 Ur Amphetamines Screen Presumptive negative 11/22/19 23:17 U Benzodiazepines Scrn Presumptive negative 11/22/19 23:17 Urine Cocaine Screen Presumptive negative 11/22/19 23:17 U Marijuana (THC) Screen Presumptive negative 11/22/19 23:17 Drugs of Abuse Note Disclamer 11/22/19 23:17 Plasma/Serum Alcohol 0.08 % (0-0.07) H 11/22/19 23:27 Coronavirus (PCR) Negative (Negative) 02/05/20 07:50 Hepatitis A IgM Ab Non-reactive (NonReactive) 11/23/19 01:19 Hep Bs Antigen Non-reactive (Negative) 11/23/19 01:19 Hep B Core IgM Ab Non-reactive (NonReactive) 11/23/19 01:19 Hepatitis C Antibody Non-reactive (NonReactive) 11/23/19 01:19 Blood Type O POSITIVE 12/21/19 14:54 Antibody Screen Negative 12/21/19 14:54 Crossmatch See Detail 12/21/19 14:54 - Diagnostic Impressions Diagnostic Impressions: Echocardiogram 11/23/19 03:58 Transthoracic Echocardiogram Indication: Cardiac arrest BP: 131/89 HR: 115 Conclusions *The study quality is technically difficult. *Global left ventricular wall motion and contractility are within normal limits. *The estimated ejection fraction is 55-60%. *Abnormal left ventricular diastolic filling is observed, consistent with impaired relaxation. *There is no pericardial effusion. Findings Procedure Info: The study quality is technically difficult. The study was technically limited due to the patient's inability to lay in the left lateral decubitus position. Left Ventricle: The left ventricular chamber size is normal. There is no left ventricular hypertrophy. Global left ventricular wall motion and contractility are within normal limits. Global left ventricular systolic function is normal. The estimated ejection fraction is 55-60%. Abnormal left ventricular diastolic filling is observed, consistent with impaired relaxation. Left Atrium: The left atrial chamber size is normal. Aortic Valve: The aortic valve leaflets are mildly thickened. Mitral Valve: The mitral valve leaflets are mildly thickened. There is no evidence of mitral regurgitation. Tricuspid Valve: The tricuspid valve leaflets are normal. There is trace tricuspid regurgitation. The right ventricular systolic pressure is calculated at 33 mmHg. Pulmonic Valve: The pulmonic valve appears normal. Pericardium: The pericardium appears normal. There is no pericardial effusion. Aorta: The aorta appears normal. Venous: The inferior vena cava appears normal in size. Measurements Chambers 2D Name Value Normal Range IVSd (2D) 0.94 cm (0.6 - 1.1) LVPWd (2D) 0.81 cm (0.6 - 1.1) LVIDd (2D) 3.6 cm (3.7 - 5.6) LVIDs (2D) 2.27 cm (2 - 3.8) LV FS (2D) 36.93 % - EF Teichholz (2D) 67.76 % - Ao root diameter (2D) 3.03 cm (2 - 3.7) Volumes/Mass Name Value Normal Range LA ESV SP 4CH (A/L) 16.89 ml - LA ESV SP 4CH (MOD) 15.52 ml - Diastolic/Systolic Function Name Value Normal Range MV E-wave Vmax 0.55 m/sec - MV deceleration time 200.89 msec - MV A-wave Vmax 0.68 m/sec - MV E:A ratio 0.82 ratio - Aortic Valve Name Value Normal Range AV Vmax 1.1 m/sec - AV VTI 15.9 cm - AV peak gradient 4.86 mmHg - AV mean gradient 2.59 mmHg - LVOT diameter 2 cm - LVOT Vmax 1.03 m/sec - LVOT VTI 15.87 cm - LVOT peak gradient 4.24 mmHg - LVOT mean gradient 2.41 mmHg - SV LVOT 49.77 ml - JOSÉ MIGUEL (continuity Vmax) 2.93 cm2 - JOSÉ MIGUEL (continuity VTI) 3.13 cm2 - Tricuspid Valve Name Value Normal Range TR Vmax 2.74 m/sec - TR peak gradient 303 mmHg - RAP 3 mmHg - RVSP 33 mmHg - IVC diameter 1.77 cm (1.2 - 2.3) Pulmonic Valve/Qp:Qs Name Value Normal Range PV Vmax 0.77 m/sec - PV peak gradient 2.4 mmHg - PV acceleration time 114.18 msec - Echocardiogram Limited Views 12/17/19 14:53 Transthoracic Echocardiogram Indication: R/O Vegetations BP: 144/83 HR: 133 Conclusions *Global left ventricular systolic function is mildly decreased. *The estimated ejection fraction is 45-50%. *A trivial pericardial effusion is visualized. Findings Left Ventricle: The left ventricular chamber size is normal. Global left ventricular systolic function is mildly decreased. The estimated ejection fraction is 45-50%. Left Atrium: The left atrial chamber size is normal. Right Ventricle: The right ventricular cavity size is normal. Right Atrium: The right atrial cavity size is normal. Aortic Valve: The aortic valve is not well visualized. There is no evidence of aortic regurgitation. Mitral Valve: The mitral valve leaflets are mildly thickened. There is trace of mitral regurgitation. Tricuspid Valve: The tricuspid valve leaflets are mildly thickened. There is trace tricuspid regurgitation. The right ventricular systolic pressure is calculated at 29 mmHg. Pulmonic Valve: The pulmonic valve is not well visualized. There is no evidence of pulmonic regurgitation. Pericardium: A trivial pericardial effusion is visualized. Aorta: There is no dilatation of the ascending aorta. There is no dilatation of the aortic root. Venous: The inferior vena cava appears normal in size. There is a greater than 50% respiratory change in the inferior vena cava dimension. Measurements Chambers 2D Name Value Normal Range IVSd (2D) 0.83 cm (0.6 - 1.1) LVPWd (2D) 0.98 cm (0.6 - 1.1) LVIDd (2D) 3.71 cm (3.7 - 5.6) LVIDs (2D) 2.93 cm (2 - 3.8) LV FS (2D) 21.12 % - EF Teichholz (2D) 43.71 % - Ao root diameter (2D) 3.02 cm (2 - 3.7) Volumes/Mass Name Value Normal Range LA ESV SP 4CH (A/L) 36.8 ml - LA ESV SP 2CH (A/L) 45.89 ml - LA ESV BP (A/L) 42.35 ml - LA ESV BP (A/L) index 26.63 ml/m2 - LA ESV SP 4CH (MOD) 34.42 ml - LA ESV SP 2CH (MOD) 44.21 ml - LA ESV BP (MOD) 39.82 ml - LA ESV BP (MOD) index 25.05 ml/m2 - Aortic Valve Name Value Normal Range LVOT diameter 1.63 cm - Tricuspid Valve Name Value Normal Range TR Vmax 2.56 m/sec - TR peak gradient 26 mmHg - RAP 3 mmHg - RVSP 29 mmHg - IVC diameter 1.83 cm (1.2 - 2.3) [place]/IV: Voiding Method Incontinent IV Catheter Type [Forearm] Peripheral IV IV Catheter Type [Left Forearm INT / Saline Lock ] IV Catheter Type [Right INT / Saline Lock Antecubital] IV Catheter Type [Right Hand] INT / Saline Lock IV Catheter Type [Right Wrist] Peripheral IV IV Catheter Type [Left Wrist] Peripheral IV IV Catheter Type [Left Peripheral IV Antecubital] IV Catheter Type [Right INT / Saline Lock Forearm] IV Catheter Type [Left Hand] INT / Saline Lock Active Medications - Current Medications Current Medications: Generic Name Dose Route Start Last Admin Trade Name Freq PRN Reason Stop Dose Admin Albuterol 2.5 mg 03/25/20 19:25 Proventil IH Q4HRT PRN Shortness Of Breath Albuterol/Ipratropium 1 ampul 03/30/20 20:00 04/05/20 20:28 Duoneb *Not For Prn Use* IH 1 ampul BIDRT LUCHO Administration Lipase/Protease/Amylase 1 each 11/23/19 11:[address] 10,500 Unit FEEDTUBE PRN PRN Use w/ sod bicarb for FT Bisacodyl 10 mg 02/06/20 13:57 Dulcolax IN QDAY PRN Constipation unrelieved by MOM Enoxaparin Sodium 40 mg 03/07/20 22:00 04/04/20 21:58 Enoxaparin SUB-Q 40 mg QDAY@2200 LUCHO Administration Glycopyrrolate 2 mg 12/31/19 20:00 04/05/20 14:49 Robinul PO 2 mg TID LUCHO Administration Haloperidol Lactate 5 mg 03/05/20 09:22 04/03/20 22:52 Haldol IM 5 mg Q6H PRN Administration Agitation Hydralazine HCl 10 mg 11/24/19 00:45 03/03/20 05:57 Apresoline IV 10 mg Q6H PRN Administration SBP > 160 Hydroxyzine Pamoate 25 mg 12/06/19 10:00 04/05/20 14:46 Vistaril PO 25 mg BID LUHCO Administration Lansoprazole 30 mg 11/27/19 10:00 04/05/20 14:47 Prevacid Solutab FEEDTUBE 30 mg QDAY LUCHO Administration Levetiracetam 500 mg 11/29/19 10:00 04/05/20 14:46 Keppra PO 500 mg BID LUCHO Administration Mirtazapine 30 mg 12/06/19 10:00 04/05/20 14:56 Remeron PO 30 mg DAILY LUCHO Administration Nicotine 21 mg 02/16/20 13:00 04/05/20 14:46 Habitrol TD 21 mg QDAY LUCHO Administration Ondansetron HCl 4 mg 12/10/19 07:53 02/25/20 02:51 Zofran IV 4 mg Q4H PRN Administration Nausea And Vomiting Polyethylene Glycol 17 gm 02/06/20 13:57 Miralax 3350 PO QDAY PRN Constipation Quetiapine Fumarate 100 mg 03/06/20 10:00 04/05/20 14:47 Seroquel FEEDTUBE 100 mg BID LUCHO Administration Scopolamine 1 each 02/08/20 15:00 04/05/20 14:46 Transderm-Scop TD 1 each Q3D LUCHO Administration Sertraline HCl 25 mg 01/01/20 10:00 04/05/20 14:45 Zoloft PO 25 mg QDAY LUCHO Administration Simple Syrup 15 ml 11/23/19 11:50 Simple Syrup FEEDTUBE PRN PRN Hypoglycemia BG<70 Simple Syrup 30 ml 11/23/19 11:50 Simple Syrup FEEDTUBE PRN PRN Hypoglycemia Sodium Bicarbonate 325 mg 11/23/19 11:50 Sodium Bicarbonate FEEDTUBE PRN PRN For Clogged Feeding Tube Nutrition/Malnutrition Assess - Dietary Evaluation Nutrition/Malnutrition Findings: Nutrition Notes Start: 11/23/19 11:29 Freq: Status: Active Protocol: Document 04/03/20 10:36 EVELIA (Rec: 04/03/20 10:44 EVELIA [email or web address]) Nutrition Notes Initial or Follow up Reassessment Other Pertinent Diagnosis s/p Cardiac arrest, acute metabolic encephalopathy Current Diet Mech soft with chopped meats Labs/Tests Reviewed Pertinent Medications Reviewed Height 5 ft 6 in Weight 49.2 kg [place] Body Weight (kg) 59.09 BMI 17.5 Subjective/Other Information Diet advanced on 03/31 per 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 Pt tolerating PO intake per RN report. Pt has consumed 44% of meals since diet advanced. Pt remains confused and requires restraints as she frequently tries to get out of bed on her own. She is still awaiting placement. Percent of energy/protein needs met: 71% energy 75% pro Burn Absent Trauma Absent Minimum of two criteria Yes Interpretation of Weight Loss (severe) >2% in 1 week Muscle Mass Mild Depletion (non-severe) #2 Nutrition Diagnosis Malnutrition Diagnosis Progress(for reassessment Continues documentation) #1 Nutrition Diagnosis Inadequate oral intake As Evidenced by Signs and Symptoms pt tolerating PO diet Diagnosis Progress(for reassessment Improved documentation) Is patient on ventilator? No Is Patient Ambulatory and/or Out of Bed No REE-([facility]-confined to bed) 1329.192 Kcal/Kg value to use for calculation 35 Approximate Energy Requirements Using 1722 kcal/Kg Calculation Used for Recommendations Kcal/kg Additional Notes Pro needs 1.2-1.5g/k-74g/ day Fluid needs 1ml/kcal Nutrition Intervention Change Diet Order: Continue current diet order; provide assistance at meal times as needed Add Supplement/Snack (indicate name/kcal Ensure Enlive TID /protein ) Provides kCal: 1,050 Provides Protein (gm) 60 Goal #1 PO intake of meals plus ONS to meet 100% energy and pro needs Goal #2 Wt maintenance and/or gain Anticipated Discharge Needs: Continue ONS 1-2 times daily for wt maintenance Follow-Up By: 04/08/20 Additional Comments F/U: intakes (meals/ONS), wt
[2020-04-05] MEDS: ENOXAPARIN 40 MG/0.4 ML INJ SUB-Q SCH (21:42)
[2020-04-06] MEDS: IPRATROPIUM/ALBUTEROL SULFATE 3 ML AMPUL.NEB IH SCH ×2 (07:35→20:07)
--- NOTE | 2020-04-06 07:55 | Progress Note ---
Assessment and Plan Assessment and plan: Cardiopulmonary arrest outside the hospital; Status post CPR' Anoxic brain injury: suspected CT head: No acute abnormality. EEG ordered showed Generalized slowing. No seizures or epileptiform activity. -Patient now alert and awake responding appropriately -As needed haldol for agitation Acute Respiratory failure status post trach and PEG 12/13/2019 Tracheostomy site healed Tracheostomy site ulceration; resolved Anemia, microcytic - Status post 3 units PRBC transfusion, H&H low stable Acute metabolic encephalopathy/toxic encephalopathy due to the above - cont supportive care Hyperammonemia - likely from liver disease related to EtOH abuse - Patient had elevated ammonia level and treated with lactulose Metabolic Acidosis -Alcohol ketoacidosis vs hypoprofusion -Continue to monitor ELevated LFTs, stable now - due to ischemic hepatitis. Leucocytosis with sepsis - Source MRSA bacteremia and MSSA pneumonia. UA showed pyuria. RUQ US showed no ascites. - Repeat TTE negative for vegetation. Completed 7 days of Ceftriaxone on 11/29/2019. -Treated with Abx vancomycin 1 gm IV q 12 hour total 2 week till 12/30/2019 Severe protein calorie malnutrition Dietitian following MSSA pneumonia: Status post vancomycin till 12/30/2019 Alcohol use Disorder - given ongoing Alcohol use almost daily, s/p IV Thiamine - monitor Severe hypokalemia -Repleted Seizure disorder: treated with Keppra H. Influenzae, tracheobronchitis, treated with abx Moderate to severe fecal impaction - will add stool softner DNR CODE STATUS Awaiting placement History Interval history: Patient seen and examined at bedside this morning Patient is confused, agitated Not in acute distress Vitals noted Hospitalist Physical - Constitutional Vitals: Temp Pulse Resp BP Pulse Ox 97.9 F 95 H 22 129/80 99 04/06/20 04:50 04/06/20 04:50 04/06/20 04:50 04/06/20 04:50 04/06/20 04:50 General appearance: Present: no acute distress, cachectic, disheveled - EENT Eyes: Present: PERRL, EOM intact - Neck Neck: Present: supple, normal ROM - Respiratory Respiratory effort: normal Respiratory: bilateral: diminished, negative: rales, rhonchi, wheezing - Cardiovascular Rhythm: regular Heart Sounds: Present: S1 & S2 - Extremities Extremities: no ischemia, No edema - Abdominal General gastrointestinal: soft, non-tender, non-distended, normal bowel sounds - Integumentary Integumentary: Present: clear, warm - Psychiatric Psychiatric: agitated, other (Confused) - Neurologic Neurologic: moves all extremities HEART Score - HEART Score Troponin: Troponin T < 0.010 ng/mL (0.00-0.029) 11/22/19 23:27 Results - Labs CBC & Chem 7: 03/25/20 04:28 03/25/20 04:28 Labs: Laboratory Last Values WBC 9.0 K/mm3 (4.5-11.0) 03/25/20 04:28 RBC 3.65 M/mm3 (3.65-5.03) 03/25/20 04:28 Hgb 10.8 gm/dl (10.1-14.3) 03/25/20 04:28 Hct 32.5 % (30.3-42.9) 03/25/20 04:28 MCV 89 fl (79-97) 03/25/20 04:28 MCH 30 pg (28-32) 03/25/20 04:28 MCHC 33 % (30-34) 03/25/20 04:28 RDW 14.1 % (13.2-15.2) 03/25/20 04:28 Plt Count 423 K/mm3 (140-440) 03/25/20 04:28 Lymph % (Auto) 27.8 % (13.4-35.0) 03/06/20 03:37 Swift % (Auto) 9.1 % (0.0-7.3) H 03/06/20 03:37 Eos % (Auto) 2.8 % (0.0-4.3) 03/06/20 03:37 Baso % (Auto) 0.7 % (0.0-1.8) 03/06/20 03:37 Lymph # 2.2 K/mm3 (1.2-5.4) 03/06/20 03:37 Swift # 0.7 K/mm3 (0.0-0.8) 03/06/20 03:37 Eos # 0.2 K/mm3 (0.0-0.4) 03/06/20 03:37 Baso # 0.1 K/mm3 (0.0-0.1) 03/06/20 03:37 Add Manual Diff Complete 12/25/19 03:47 Total Counted 200 12/25/19 03:47 Seg Neutrophils % 59.6 % (40.0-70.0) 03/06/20 03:37 Seg Neuts % (Manual) 97.5 % (40.0-70.0) H 12/25/19 03:47 Band Neutrophils % 0 % 12/25/19 03:47 Lymphocytes % (Manual) 1.0 % (13.4-35.0) L 12/25/19 03:47 Reactive Lymphs % (Man) 0 % 12/25/19 03:47 Monocytes % (Manual) 1.5 % (0.0-7.3) 12/25/19 03:47 Eosinophils % (Manual) 0 % (0.0-4.3) 12/25/19 03:47 Basophils % (Manual) 0 % (0.0-1.8) 12/25/19 03:47 Metamyelocytes % 0 % 12/25/19 03:47 Myelocytes % 0 % 12/25/19 03:47 Promyelocytes % 0 % 12/25/19 03:47 Blast Cells % 0 % 12/25/19 03:47 Nucleated RBC % Not Reportable 12/25/19 03:47 Seg Neutrophils # 4.8 K/mm3 (1.8-7.7) 03/06/20 03:37 Seg Neutrophils # Man 35.3 K/mm3 (1.8-7.7) H 12/25/19 03:47 Band Neutrophils # 0.0 K/mm3 12/25/19 03:47 Lymphocytes # (Manual) 0.4 K/mm3 (1.2-5.4) L 12/25/19 03:47 Abs React Lymphs (Man) 0.0 K/mm3 12/25/19 03:47 Monocytes # (Manual) 0.5 K/mm3 (0.0-0.8) 12/25/19 03:47 Eosinophils # (Manual) 0.0 K/mm3 (0.0-0.4) 12/25/19 03:47 Basophils # (Manual) 0.0 K/mm3 (0.0-0.1) 12/25/19 03:47 Metamyelocytes # 0.0 K/mm3 12/25/19 03:47 Myelocytes # 0.0 K/mm3 12/25/19 03:47 Promyelocytes # 0.0 K/mm3 12/25/19 03:47 Blast Cells # 0.0 K/mm3 12/25/19 03:47 Pathologist Review 12/13/19 07:48 WBC Morphology Not Reportable 12/25/19 03:47 Hypersegmented Neuts Not Reportable 12/25/19 03:47 Hyposegmented Neuts Not Reportable 12/25/19 03:47 Hypogranular Neuts Not Reportable 12/25/19 03:47 Smudge Cells Not Reportable 12/25/19 03:47 Toxic Granulation Not Reportable 12/25/19 03:47 Toxic Vacuolation Not Reportable 12/25/19 03:47 Dohle Bodies Not Reportable 12/25/19 03:47 Pelger-Huet Anomaly Not Reportable 12/25/19 03:47 Dominique Rods Not Reportable 12/25/19 03:47 Platelet Estimate Consistent w auto 12/25/19 03:47 Clumped Platelets Not Reportable 12/25/19 03:47 Plt Clumps, EDTA Not Reportable 12/25/19 03:47 Large Platelets Not Reportable 12/25/19 03:47 Giant Platelets Not Reportable 12/25/19 03:47 Platelet Satelliting Not Reportable 12/25/19 03:47 Plt Morphology Comment Not Reportable 12/25/19 03:47 RBC Morphology Not Reportable 12/25/19 03:47 Dimorphic RBCs Not Reportable 12/25/19 03:47 Polychromasia Not Reportable 12/25/19 03:47 Hypochromasia Not Reportable 12/25/19 03:47 Poikilocytosis Not Reportable 12/25/19 03:47 Anisocytosis 1+ 12/25/19 03:47 Microcytosis Not Reportable 12/25/19 03:47 Macrocytosis Not Reportable 12/25/19 03:47 Spherocytes Not Reportable 12/25/19 03:47 Pappenheimer Bodies Not Reportable 12/25/19 03:47 Sickle Cells Not Reportable 12/25/19 03:47 Target Cells Not Reportable 12/25/19 03:47 Tear Drop Cells Not Reportable 12/25/19 03:47 Ovalocytes Not Reportable 12/25/19 03:47 Helmet Cells Not Reportable 12/25/19 03:47 [place] Bodies Not Reportable 12/25/19 03:47 [place] Rings Not Reportable 12/25/19 03:47 Jamshid Cells Not Reportable 12/25/19 03:47 Bite Cells Not Reportable 12/25/19 03:47 Crenated Cell Not Reportable 12/25/19 03:47 Elliptocytes Not Reportable 12/25/19 03:47 Acanthocytes (Spur) Not Reportable 12/25/19 03:47 Rouleaux Not Reportable 12/25/19 03:47 Hemoglobin C Crystals Not Reportable 12/25/19 03:47 Schistocytes Not Reportable 12/25/19 03:47 Malaria parasites Not Reportable 12/25/19 03:47 Gregg Bodies Not Reportable 12/25/19 03:47 Hem Pathologist Commnt No 12/25/19 03:47 PT 17.0 Sec. (12.2-14.9) H 11/23/19 03:47 INR 1.36 (0.87-1.13) H 11/23/19 03:47 APTT 128.2 Sec. (24.2-36.6) H* 11/23/19 03:47 Heparin Anti-Xa Level 0.31 U.I./ml (0.3-0.7) 11/23/19 09:03 ABG pH 7.433 pH Units (7.350-7.450) 03/08/20 13:25 ABG pCO2 40.2 mm Hg 03/08/20 13:25 ABG pO2 71.1 mm Hg (80.0-90.0) L 03/08/20 13:25 ABG HCO3 26.2 mmol/L (20.0-26.0) H 03/08/20 13:25 ABG O2 Saturation 97.0 % (95.0-99.0) 03/08/20 13:25 ABG O2 Content 11.0 (0.0-44) 03/08/20 13:25 ABG Base Excess 1.8 mmol/L (-2.0-3.0) 03/08/20 13:25 ABG Hemoglobin 8.2 gm/dl (12.0-16.0) L 03/08/20 13:25 ABG Carboxyhemoglobin 1.7 % (0.0-5.0) 03/08/20 13:25 ABG Methemoglobin 0.5 % (0.0-1.5) 03/08/20 13:25 Oxyhemoglobin 94.8 % (95.0-99.0) L 03/08/20 13:25 FiO2 21 % 03/08/20 13:25 Sodium 138 mmol/L (137-145) 03/25/20 04:28 Potassium 4.2 mmol/L (3.6-5.0) 03/25/20 04:28 Chloride 99.3 mmol/L (98-107) 03/25/20 04:28 Carbon Dioxide 28 mmol/L (22-30) 03/25/20 04:28 Anion Gap 15 mmol/L 03/25/20 04:28 BUN 23 mg/dL (7-17) H 03/25/20 04:28 Creatinine 0.5 mg/dL (0.7-1.2) L 03/25/20 04:28 Estimated GFR > 60 ml/min 03/25/20 04:28 BUN/Creatinine Ratio 46 % 03/25/20 04:28 Glucose 121 mg/dL (65-100) H 03/25/20 04:28 POC Glucose 117 (70-105) H 04/05/20 00:16 Lactic Acid 1.80 mmol/L (0.7-2.0) 11/25/19 05:05 Calcium 10.3 mg/dL (8.4-10.2) H 03/25/20 04:28 Ionized Calcium 4.5 mg/dL (4.8-5.6) L 11/23/19 06:32 Phosphorus 4.20 mg/dL (2.5-4.5) D 11/28/19 08:59 Magnesium 1.90 mg/dL (1.7-2.3) 02/28/20 03:40 Total Bilirubin 0.40 mg/dL (0.1-1.2) 12/13/19 07:48 AST 27 units/L (5-40) 12/13/19 07:48 ALT 26 units/L (7-56) 12/13/19 07:48 Alkaline Phosphatase 316 units/L (35-129) H 12/13/19 07:48 Ammonia 42.0 umol/L (25-60) 11/29/19 13:41 Total Creatine Kinase 139 units/L (30-135) H 11/22/19 23:27 CK-MB (CK-2) 8.3 ng/mL (0.0-4.0) H 11/22/19 23:27 CK-MB (CK-2) Rel Index 5.9 (0-4) H 11/22/19 23:27 Troponin T < 0.010 ng/mL (0.00-0.029) 11/22/19 23:27 Total Protein 6.8 g/dL (6.3-8.2) 12/13/19 07:48 Albumin 2.4 g/dL (3.9-5) L 12/13/19 07:48 Albumin/Globulin Ratio 0.5 % 12/13/19 07:48 Lipase 18 units/L (13-60) 11/23/19 00:34 Procalcitonin 1.09 ng/mL (<0.15) 11/23/19 04:53 TSH 1.010 mlU/mL (0.270-4.200) 02/12/20 07:36 Free T4 1.08 ng/dL (0.76-1.46) 02/12/20 07:36 Urine Color Yellow (Yellow) 12/16/19 Unknown Urine Turbidity Slightly-cloudy (Clear) 12/16/19 Unknown Urine pH 5.0 (5.0-7.0) 12/16/19 Unknown Ur Specific Portia 1.018 (1.003-1.030) 12/16/19 Unknown Urine Protein 30 mg/dl mg/dL (Negative) 12/16/19 Unknown Urine Glucose (UA) Neg mg/dL (Negative) 12/16/19 Unknown Urine Ketones Neg mg/dL (Negative) 12/16/19 Unknown Urine Blood Sm (Negative) 12/16/19 Unknown Urine Nitrite Neg (Negative) 12/16/19 Unknown Urine Bilirubin Neg (Negative) 12/16/19 Unknown Urine Urobilinogen < 2.0 mg/dL (<2.0) 12/16/19 Unknown Ur Leukocyte Esterase Neg (Negative) 12/16/19 Unknown Urine WBC (Auto) 6.0 /HPF (0.0-6.0) 12/16/19 Unknown Urine RBC (Auto) 9.0 /HPF (0.0-6.0) 12/16/19 Unknown U Epithel Cells (Auto) < 1.0 /HPF (0-13.0) 12/16/19 Unknown Urine Bacteria (Auto) 2+ /HPF (Negative) 11/22/19 23:17 Hyaline Casts 3 /LPF 12/16/19 Unknown Granular Casts 3 /LPF 12/16/19 Unknown Urine Mucus Few /HPF 12/16/19 Unknown Vancomycin Trough 33.8 ug/mL (5.0-20.0) H 12/21/19 08:56 Random Vancomycin 16.2 ug/mL (0-40.0) 12/24/19 04:31 Salicylates < 0.3 mg/dL (2.8-20.0) L 11/22/19 23:27 Urine Opiates Screen Presumptive negative 11/22/19 23:17 Urine Methadone Screen Presumptive negative 11/22/19 23:17 Acetaminophen < 5.0 ug/mL (10.0-30.0) L 11/22/19 23:27 Ur Barbiturates Screen Presumptive negative 11/22/19 23:17 Ur Phencyclidine Scrn Presumptive negative 11/22/19 23:17 Ur Amphetamines Screen Presumptive negative 11/22/19 23:17 U Benzodiazepines Scrn Presumptive negative 11/22/19 23:17 Urine Cocaine Screen Presumptive negative 11/22/19 23:17 U Marijuana (THC) Screen Presumptive negative 11/22/19 23:17 Drugs of Abuse Note Disclamer 11/22/19 23:17 Plasma/Serum Alcohol 0.08 % (0-0.07) H 11/22/19 23:27 Coronavirus (PCR) Negative (Negative) 02/05/20 07:50 Hepatitis A IgM Ab Non-reactive (NonReactive) 11/23/19 01:19 Hep Bs Antigen Non-reactive (Negative) 11/23/19 01:19 Hep B Core IgM Ab Non-reactive (NonReactive) 11/23/19 01:19 Hepatitis C Antibody Non-reactive (NonReactive) 11/23/19 01:19 Blood Type O POSITIVE 12/21/19 14:54 Antibody Screen Negative 12/21/19 14:54 Crossmatch See Detail 12/21/19 14:54 - Diagnostic Impressions Diagnostic Impressions: Echocardiogram 11/23/19 03:58 Transthoracic Echocardiogram Indication: Cardiac arrest BP: 131/89 HR: 115 Conclusions *The study quality is technically difficult. *Global left ventricular wall motion and contractility are within normal limits. *The estimated ejection fraction is 55-60%. *Abnormal left ventricular diastolic filling is observed, consistent with impaired relaxation. *There is no pericardial effusion. Findings Procedure Info: The study quality is technically difficult. The study was technically limited due to the patient's inability to lay in the left lateral decubitus position. Left Ventricle: The left ventricular chamber size is normal. There is no left ventricular hypertrophy. Global left ventricular wall motion and contractility are within normal limits. Global left ventricular systolic function is normal. The estimated ejection fraction is 55-60%. Abnormal left ventricular diastolic filling is observed, consistent with impaired relaxation. Left Atrium: The left atrial chamber size is normal. Aortic Valve: The aortic valve leaflets are mildly thickened. Mitral Valve: The mitral valve leaflets are mildly thickened. There is no evidence of mitral regurgitation. Tricuspid Valve: The tricuspid valve leaflets are normal. There is trace tricuspid regurgitation. The right ventricular systolic pressure is calculated at 33 mmHg. Pulmonic Valve: The pulmonic valve appears normal. Pericardium: The pericardium appears normal. There is no pericardial effusion. Aorta: The aorta appears normal. Venous: The inferior vena cava appears normal in size. Measurements Chambers 2D Name Value Normal Range IVSd (2D) 0.94 cm (0.6 - 1.1) LVPWd (2D) 0.81 cm (0.6 - 1.1) LVIDd (2D) 3.6 cm (3.7 - 5.6) LVIDs (2D) 2.27 cm (2 - 3.8) LV FS (2D) 36.93 % - EF Teichholz (2D) 67.76 % - Ao root diameter (2D) 3.03 cm (2 - 3.7) Volumes/Mass Name Value Normal Range LA ESV SP 4CH (A/L) 16.89 ml - LA ESV SP 4CH (MOD) 15.52 ml - Diastolic/Systolic Function Name Value Normal Range MV E-wave Vmax 0.55 m/sec - MV deceleration time 200.89 msec - MV A-wave Vmax 0.68 m/sec - MV E:A ratio 0.82 ratio - Aortic Valve Name Value Normal Range AV Vmax 1.1 m/sec - AV VTI 15.9 cm - AV peak gradient 4.86 mmHg - AV mean gradient 2.59 mmHg - LVOT diameter 2 cm - LVOT Vmax 1.03 m/sec - LVOT VTI 15.87 cm - LVOT peak gradient 4.24 mmHg - LVOT mean gradient 2.41 mmHg - SV LVOT 49.77 ml - JOSÉ MIGUEL (continuity Vmax) 2.93 cm2 - JOSÉ MIGUEL (continuity VTI) 3.13 cm2 - Tricuspid Valve Name Value Normal Range TR Vmax 2.74 m/sec - TR peak gradient 303 mmHg - RAP 3 mmHg - RVSP 33 mmHg - IVC diameter 1.77 cm (1.2 - 2.3) Pulmonic Valve/Qp:Qs Name Value Normal Range PV Vmax 0.77 m/sec - PV peak gradient 2.4 mmHg - PV acceleration time 114.18 msec - Echocardiogram Limited Views 12/17/19 14:53 Transthoracic Echocardiogram Indication: R/O Vegetations BP: 144/83 HR: 133 Conclusions *Global left ventricular systolic function is mildly decreased. *The estimated ejection fraction is 45-50%. *A trivial pericardial effusion is visualized. Findings Left Ventricle: The left ventricular chamber size is normal. Global left ventricular systolic function is mildly decreased. The estimated ejection fraction is 45-50%. Left Atrium: The left atrial chamber size is normal. Right Ventricle: The right ventricular cavity size is normal. Right Atrium: The right atrial cavity size is normal. Aortic Valve: The aortic valve is not well visualized. There is no evidence of aortic regurgitation. Mitral Valve: The mitral valve leaflets are mildly thickened. There is trace of mitral regurgitation. Tricuspid Valve: The tricuspid valve leaflets are mildly thickened. There is trace tricuspid regurgitation. The right ventricular systolic pressure is calculated at 29 mmHg. Pulmonic Valve: The pulmonic valve is not well visualized. There is no evidence of pulmonic regurgitation. Pericardium: A trivial pericardial effusion is visualized. Aorta: There is no dilatation of the ascending aorta. There is no dilatation of the aortic root. Venous: The inferior vena cava appears normal in size. There is a greater than 50% respiratory change in the inferior vena cava dimension. Measurements Chambers 2D Name Value Normal Range IVSd (2D) 0.83 cm (0.6 - 1.1) LVPWd (2D) 0.98 cm (0.6 - 1.1) LVIDd (2D) 3.71 cm (3.7 - 5.6) LVIDs (2D) 2.93 cm (2 - 3.8) LV FS (2D) 21.12 % - EF Teichholz (2D) 43.71 % - Ao root diameter (2D) 3.02 cm (2 - 3.7) Volumes/Mass Name Value Normal Range LA ESV SP 4CH (A/L) 36.8 ml - LA ESV SP 2CH (A/L) 45.89 ml - LA ESV BP (A/L) 42.35 ml - LA ESV BP (A/L) index 26.63 ml/m2 - LA ESV SP 4CH (MOD) 34.42 ml - LA ESV SP 2CH (MOD) 44.21 ml - LA ESV BP (MOD) 39.82 ml - LA ESV BP (MOD) index 25.05 ml/m2 - Aortic Valve Name Value Normal Range LVOT diameter 1.63 cm - Tricuspid Valve Name Value Normal Range TR Vmax 2.56 m/sec - TR peak gradient 26 mmHg - RAP 3 mmHg - RVSP 29 mmHg - IVC diameter 1.83 cm (1.2 - 2.3) Dela Cruz/IV: Voiding Method Incontinent IV Catheter Type [Forearm] Peripheral IV IV Catheter Type [Left Forearm INT / Saline Lock ] IV Catheter Type [Right INT / Saline Lock Antecubital] IV Catheter Type [Right Hand] INT / Saline Lock IV Catheter Type [Right Wrist] Peripheral IV IV Catheter Type [Left Wrist] Peripheral IV IV Catheter Type [Left Peripheral IV Antecubital] IV Catheter Type [Right INT / Saline Lock Forearm] IV Catheter Type [Left Hand] INT / Saline Lock Active Medications - Current Medications Current Medications: Generic Name Dose Route Start Last Admin Trade Name Freq PRN Reason Stop Dose Admin Albuterol 2.5 mg 03/25/20 19:25 Proventil IH Q4HRT PRN Shortness Of Breath Albuterol/Ipratropium 1 ampul 03/30/20 20:00 04/06/20 07:35 Duoneb *Not For Prn Use* IH 1 ampul BIDRT LUCHO Administration Lipase/Protease/Amylase 1 each 11/23/19 11:[address] 10,500 Unit FEEDTUBE PRN PRN Use w/ sod bicarb for FT Bisacodyl 10 mg 02/06/20 13:57 Dulcolax MN QDAY PRN Constipation unrelieved by MOM Enoxaparin Sodium 40 mg 03/07/20 22:00 04/05/20 21:42 Enoxaparin SUB-Q 40 mg QDAY@2200 LUCHO Administration Glycopyrrolate 2 mg 12/31/19 20:00 04/05/20 21:42 Robinul PO 2 mg TID LUCHO Administration Haloperidol Lactate 5 mg 03/05/20 09:22 04/03/20 22:52 Haldol IM 5 mg Q6H PRN Administration Agitation Hydralazine HCl 10 mg 11/24/19 00:45 03/03/20 05:57 Apresoline IV 10 mg Q6H PRN Administration SBP > 160 Hydroxyzine Pamoate 25 mg 12/06/19 10:00 04/05/20 21:42 Vistaril PO 25 mg BID LUCHO Administration Lansoprazole 30 mg 11/27/19 10:00 04/05/20 14:47 Prevacid Solutab FEEDTUBE 30 mg QDAY LUCHO Administration Levetiracetam 500 mg 11/29/19 10:00 04/05/20 21:42 Keppra PO 500 mg BID LUCHO Administration Mirtazapine 30 mg 12/06/19 10:00 04/05/20 14:56 Remeron PO 30 mg DAILY LUCHO Administration Nicotine 21 mg 02/16/20 13:00 04/05/20 14:46 Habitrol TD 21 mg QDAY LUCHO Administration Ondansetron HCl 4 mg 12/10/19 07:53 02/25/20 02:51 Zofran IV 4 mg Q4H PRN Administration Nausea And Vomiting Polyethylene Glycol 17 gm 02/06/20 13:57 Miralax 3350 PO QDAY PRN Constipation Quetiapine Fumarate 100 mg 03/06/20 10:00 04/05/20 21:42 Seroquel FEEDTUBE 100 mg BID LUCHO Administration Scopolamine 1 each 02/08/20 15:00 04/05/20 14:46 Transderm-Scop TD 1 each Q3D LUCHO Administration Sertraline HCl 25 mg 01/01/20 10:00 04/05/20 14:45 Zoloft PO 25 mg QDAY LUCHO Administration Simple Syrup 15 ml 11/23/19 11:50 Simple Syrup FEEDTUBE PRN PRN Hypoglycemia BG<70 Simple Syrup 30 ml 11/23/19 11:50 Simple Syrup FEEDTUBE PRN PRN Hypoglycemia Sodium Bicarbonate 325 mg 11/23/19 11:50 Sodium Bicarbonate FEEDTUBE PRN PRN For Clogged Feeding Tube Nutrition/Malnutrition Assess - Dietary Evaluation Nutrition/Malnutrition Findings: Nutrition Notes Start: 11/23/19 11:29 Freq: Status: Active Protocol: Document 04/03/20 10:36 EVELIA (Rec: 04/03/20 10:44 EVELIA [email or web address] [email or web address]) Nutrition Notes Initial or Follow up Reassessment Other Pertinent Diagnosis s/p Cardiac arrest, acute metabolic encephalopathy Current Diet Mech soft with chopped meats Labs/Tests Reviewed Pertinent Medications Reviewed Height 5 ft 6 in Weight 49.2 kg [place] Body Weight (kg) 59.09 BMI 17.5 Subjective/Other Information Diet advanced on 03/31 per [employer] recommendation; TF d/c'ed. Pt tolerating PO intake per RN report. Pt has consumed 44% of meals since diet advanced. Pt remains confused and requires restraints as she frequently tries to get out of bed on her own. She is still awaiting placement. Percent of energy/protein needs met: 71% energy 75% pro Burn Absent Trauma Absent Minimum of two criteria Yes Interpretation of Weight Loss (severe) >2% in 1 week Muscle Mass Mild Depletion (non-severe) #2 Nutrition Diagnosis Malnutrition Diagnosis Progress(for reassessment Continues documentation) #1 Nutrition Diagnosis Inadequate oral intake As Evidenced by Signs and Symptoms pt tolerating PO diet Diagnosis Progress(for reassessment Improved documentation) Is patient on ventilator? No Is Patient Ambulatory and/or Out of Bed No REE-([facility]-confined to bed) 1329.192 Kcal/Kg value to use for calculation 35 Approximate Energy Requirements Using 1722 kcal/Kg Calculation Used for Recommendations Kcal/kg Additional Notes Pro needs 1.2-1.5g/k-74g/ day Fluid needs 1ml/kcal Nutrition Intervention Change Diet Order: Continue current diet order; provide assistance at meal times as needed Add Supplement/Snack (indicate name/kcal Ensure Enlive TID /protein ) Provides kCal: 1,050 Provides Protein (gm) 60 Goal #1 PO intake of meals plus ONS to meet 100% energy and pro needs Goal #2 Wt maintenance and/or gain Anticipated Discharge Needs: Continue ONS 1-2 times daily for wt maintenance Follow-Up By: 04/08/20 Additional Comments F/U: intakes (meals/ONS), wt
[2020-04-06] MEDS: LANSOPRAZOLE 30 MG SOLUTAB FEEDTUBE SCH (09:07)
[2020-04-06] MEDS: GLYCOPYRROLATE 1 MG TAB PO SCH ×3 (09:08→22:05)
[2020-04-06] MEDS: SERTRALINE 50 MG TAB PO SCH (09:08)
[2020-04-06] MEDS: MIRTAZAPINE 30 MG TAB PO SCH (09:08)
[2020-04-06] MEDS: hydrOXYzine PAMOATE 25 MG CAP PO SCH ×2 (09:09→22:05)
[2020-04-06] MEDS: levETIRAcetam 500 MG/5 ML ORAL LIQD PO SCH ×2 (09:09→22:05)
[2020-04-06] MEDS: NICOTINE 21 MG/24 HR PATCH TD SCH (09:09)
[2020-04-06] MEDS: QUEtiapine 100 MG TAB FEEDTUBE SCH ×2 (09:11→22:06)
[2020-04-06] MEDS: ENOXAPARIN 40 MG/0.4 ML INJ SUB-Q SCH (22:06)
--- NOTE | 2020-04-07 08:31 | Progress Note ---
Assessment and Plan Assessment and plan: Cardiopulmonary arrest outside the hospital; Status post CPR' Anoxic brain injury: suspected CT head: No acute abnormality. EEG ordered showed Generalized slowing. No seizures or epileptiform activity. -Patient now alert and awake responding appropriately -As needed haldol for agitation Acute Respiratory failure status post trach and PEG 12/13/2019 Tracheostomy site healed Tracheostomy site ulceration; resolved Anemia, microcytic - Status post 3 units PRBC transfusion, H&H low stable Acute metabolic encephalopathy/toxic encephalopathy due to the above - cont supportive care Hyperammonemia - likely from liver disease related to EtOH abuse - Patient had elevated ammonia level and treated with lactulose Metabolic Acidosis -Alcohol ketoacidosis vs hypoprofusion -Continue to monitor ELevated LFTs, stable now - due to ischemic hepatitis. Leucocytosis with sepsis - Source MRSA bacteremia and MSSA pneumonia. UA showed pyuria. RUQ US showed no ascites. - Repeat TTE negative for vegetation. Completed 7 days of Ceftriaxone on 11/29/2019. -Treated with Abx vancomycin 1 gm IV q 12 hour total 2 week till 12/30/2019 Severe protein calorie malnutrition Dietitian following MSSA pneumonia: Status post vancomycin till 12/30/2019 Alcohol use Disorder - given ongoing Alcohol use almost daily, s/p IV Thiamine - monitor Severe hypokalemia -Repleted Seizure disorder: treated with Keppra H. Influenzae, tracheobronchitis, treated with abx Moderate to severe fecal impaction - will add stool softner DNR CODE STATUS Awaiting placement 03/25/2020. Patient is s/p cardiac arrest, extubated and decannulated with stoma healing. Await placement per case management. 03/26/2020. Awaiting placement. 03/27/2020. Continue to work with case management for placement. Patient requiring restraints for safety. 04/06/20; patient remains in restraints secondary to agitation confusion and risk of fall, awaiting placement 04/07/20; patient clinically stable, awaiting placement History Interval history: Seen and examined the patient in her room Patient is agitated restless trying to get off the bed Confused restraint for safety. Patient feels slightly better, tolerating diet Vital signs reviewed Hospitalist Physical - Constitutional Vitals: Temp Pulse Resp BP Pulse Ox 97.9 F 91 H 20 124/89 97 04/07/20 05:09 04/07/20 05:09 04/07/20 05:09 04/07/20 05:09 04/07/20 08:27 General appearance: Present: no acute distress, cachectic, disheveled - EENT Eyes: Present: PERRL, EOM intact - Neck Neck: Present: supple, normal ROM - Respiratory Respiratory effort: normal Respiratory: bilateral: diminished, negative: rales, rhonchi, wheezing - Cardiovascular Rhythm: regular Heart Sounds: Present: S1 & S2 - Extremities Extremities: no ischemia, No edema - Abdominal General gastrointestinal: soft, non-tender, non-distended, normal bowel sounds - Integumentary Integumentary: Present: clear, warm - Psychiatric Psychiatric: appropriate mood/affect, cooperative - Neurologic Neurologic: moves all extremities HEART Score - HEART Score Troponin: Troponin T < 0.010 ng/mL (0.00-0.029) 11/22/19 23:27 Results - Labs CBC & Chem 7: 03/25/20 04:28 03/25/20 04:28 Labs: Laboratory Last Values WBC 9.0 K/mm3 (4.5-11.0) 03/25/20 04:28 RBC 3.65 M/mm3 (3.65-5.03) 03/25/20 04:28 Hgb 10.8 gm/dl (10.1-14.3) 03/25/20 04:28 Hct 32.5 % (30.3-42.9) 03/25/20 04:28 MCV 89 fl (79-97) 03/25/20 04:28 MCH 30 pg (28-32) 03/25/20 04:28 MCHC 33 % (30-34) 03/25/20 04:28 RDW 14.1 % (13.2-15.2) 03/25/20 04:28 Plt Count 423 K/mm3 (140-440) 03/25/20 04:28 Lymph % (Auto) 27.8 % (13.4-35.0) 03/06/20 03:37 Stoddard % (Auto) 9.1 % (0.0-7.3) H 03/06/20 03:37 Eos % (Auto) 2.8 % (0.0-4.3) 03/06/20 03:37 Baso % (Auto) 0.7 % (0.0-1.8) 03/06/20 03:37 Lymph # 2.2 K/mm3 (1.2-5.4) 03/06/20 03:37 Stoddard # 0.7 K/mm3 (0.0-0.8) 03/06/20 03:37 Eos # 0.2 K/mm3 (0.0-0.4) 03/06/20 03:37 Baso # 0.1 K/mm3 (0.0-0.1) 03/06/20 03:37 Add Manual Diff Complete 12/25/19 03:47 Total Counted 200 12/25/19 03:47 Seg Neutrophils % 59.6 % (40.0-70.0) 03/06/20 03:37 Seg Neuts % (Manual) 97.5 % (40.0-70.0) H 12/25/19 03:47 Band Neutrophils % 0 % 12/25/19 03:47 Lymphocytes % (Manual) 1.0 % (13.4-35.0) L 12/25/19 03:47 Reactive Lymphs % (Man) 0 % 12/25/19 03:47 Monocytes % (Manual) 1.5 % (0.0-7.3) 12/25/19 03:47 Eosinophils % (Manual) 0 % (0.0-4.3) 12/25/19 03:47 Basophils % (Manual) 0 % (0.0-1.8) 12/25/19 03:47 Metamyelocytes % 0 % 12/25/19 03:47 Myelocytes % 0 % 12/25/19 03:47 Promyelocytes % 0 % 12/25/19 03:47 Blast Cells % 0 % 12/25/19 03:47 Nucleated RBC % Not Reportable 12/25/19 03:47 Seg Neutrophils # 4.8 K/mm3 (1.8-7.7) 03/06/20 03:37 Seg Neutrophils # Man 35.3 K/mm3 (1.8-7.7) H 12/25/19 03:47 Band Neutrophils # 0.0 K/mm3 12/25/19 03:47 Lymphocytes # (Manual) 0.4 K/mm3 (1.2-5.4) L 12/25/19 03:47 Abs React Lymphs (Man) 0.0 K/mm3 12/25/19 03:47 Monocytes # (Manual) 0.5 K/mm3 (0.0-0.8) 12/25/19 03:47 Eosinophils # (Manual) 0.0 K/mm3 (0.0-0.4) 12/25/19 03:47 Basophils # (Manual) 0.0 K/mm3 (0.0-0.1) 12/25/19 03:47 Metamyelocytes # 0.0 K/mm3 12/25/19 03:47 Myelocytes # 0.0 K/mm3 12/25/19 03:47 Promyelocytes # 0.0 K/mm3 12/25/19 03:47 Blast Cells # 0.0 K/mm3 12/25/19 03:47 Pathologist Review 12/13/19 07:48 WBC Morphology Not Reportable 12/25/19 03:47 Hypersegmented Neuts Not Reportable 12/25/19 03:47 Hyposegmented Neuts Not Reportable 12/25/19 03:47 Hypogranular Neuts Not Reportable 12/25/19 03:47 Smudge Cells Not Reportable 12/25/19 03:47 Toxic Granulation Not Reportable 12/25/19 03:47 Toxic Vacuolation Not Reportable 12/25/19 03:47 Dohle Bodies Not Reportable 12/25/19 03:47 Pelger-Huet Anomaly Not Reportable 12/25/19 03:47 Dominique Rods Not Reportable 12/25/19 03:47 Platelet Estimate Consistent w auto 12/25/19 03:47 Clumped Platelets Not Reportable 12/25/19 03:47 Plt Clumps, EDTA Not Reportable 12/25/19 03:47 Large Platelets Not Reportable 12/25/19 03:47 Giant Platelets Not Reportable 12/25/19 03:47 Platelet Satelliting Not Reportable 12/25/19 03:47 Plt Morphology Comment Not Reportable 12/25/19 03:47 RBC Morphology Not Reportable 12/25/19 03:47 Dimorphic RBCs Not Reportable 12/25/19 03:47 Polychromasia Not Reportable 12/25/19 03:47 Hypochromasia Not Reportable 12/25/19 03:47 Poikilocytosis Not Reportable 12/25/19 03:47 Anisocytosis 1+ 12/25/19 03:47 Microcytosis Not Reportable 12/25/19 03:47 Macrocytosis Not Reportable 12/25/19 03:47 Spherocytes Not Reportable 12/25/19 03:47 Pappenheimer Bodies Not Reportable 12/25/19 03:47 Sickle Cells Not Reportable 12/25/19 03:47 Target Cells Not Reportable 12/25/19 03:47 Tear Drop Cells Not Reportable 12/25/19 03:47 Ovalocytes Not Reportable 12/25/19 03:47 Helmet Cells Not Reportable 12/25/19 03:47 Frias-Steele Bodies Not Reportable 12/25/19 03:47 Byron Rings Not Reportable 12/25/19 03:47 Ambrose Cells Not Reportable 12/25/19 03:47 Bite Cells Not Reportable 12/25/19 03:47 Crenated Cell Not Reportable 12/25/19 03:47 Elliptocytes Not Reportable 12/25/19 03:47 Acanthocytes (Spur) Not Reportable 12/25/19 03:47 Rouleaux Not Reportable 12/25/19 03:47 Hemoglobin C Crystals Not Reportable 12/25/19 03:47 Schistocytes Not Reportable 12/25/19 03:47 Malaria parasites Not Reportable 12/25/19 03:47 Gregg Bodies Not Reportable 12/25/19 03:47 Hem Pathologist Commnt No 12/25/19 03:47 PT 17.0 Sec. (12.2-14.9) H 11/23/19 03:47 INR 1.36 (0.87-1.13) H 11/23/19 03:47 APTT 128.2 Sec. (24.2-36.6) H* 11/23/19 03:47 Heparin Anti-Xa Level 0.31 U.I./ml (0.3-0.7) 11/23/19 09:03 ABG pH 7.433 pH Units (7.350-7.450) 03/08/20 13:25 ABG pCO2 40.2 mm Hg 03/08/20 13:25 ABG pO2 71.1 mm Hg (80.0-90.0) L 03/08/20 13:25 ABG HCO3 26.2 mmol/L (20.0-26.0) H 03/08/20 13:25 ABG O2 Saturation 97.0 % (95.0-99.0) 03/08/20 13:25 ABG O2 Content 11.0 (0.0-44) 03/08/20 13:25 ABG Base Excess 1.8 mmol/L (-2.0-3.0) 03/08/20 13:25 ABG Hemoglobin 8.2 gm/dl (12.0-16.0) L 03/08/20 13:25 ABG Carboxyhemoglobin 1.7 % (0.0-5.0) 03/08/20 13:25 ABG Methemoglobin 0.5 % (0.0-1.5) 03/08/20 13:25 Oxyhemoglobin 94.8 % (95.0-99.0) L 03/08/20 13:25 FiO2 21 % 03/08/20 13:25 Sodium 138 mmol/L (137-145) 03/25/20 04:28 Potassium 4.2 mmol/L (3.6-5.0) 03/25/20 04:28 Chloride 99.3 mmol/L (98-107) 03/25/20 04:28 Carbon Dioxide 28 mmol/L (22-30) 03/25/20 04:28 Anion Gap 15 mmol/L 03/25/20 04:28 BUN 23 mg/dL (7-17) H 03/25/20 04:28 Creatinine 0.5 mg/dL (0.7-1.2) L 03/25/20 04:28 Estimated GFR > 60 ml/min 03/25/20 04:28 BUN/Creatinine Ratio 46 % 03/25/20 04:28 Glucose 121 mg/dL (65-100) H 03/25/20 04:28 POC Glucose 117 (70-105) H 04/05/20 00:16 Lactic Acid 1.80 mmol/L (0.7-2.0) 11/25/19 05:05 Calcium 10.3 mg/dL (8.4-10.2) H 03/25/20 04:28 Ionized Calcium 4.5 mg/dL (4.8-5.6) L 11/23/19 06:32 Phosphorus 4.20 mg/dL (2.5-4.5) D 11/28/19 08:59 Magnesium 1.90 mg/dL (1.7-2.3) 02/28/20 03:40 Total Bilirubin 0.40 mg/dL (0.1-1.2) 12/13/19 07:48 AST 27 units/L (5-40) 12/13/19 07:48 ALT 26 units/L (7-56) 12/13/19 07:48 Alkaline Phosphatase 316 units/L (35-129) H 12/13/19 07:48 Ammonia 42.0 umol/L (25-60) 11/29/19 13:41 Total Creatine Kinase 139 units/L (30-135) H 11/22/19 23:27 CK-MB (CK-2) 8.3 ng/mL (0.0-4.0) H 11/22/19 23:27 CK-MB (CK-2) Rel Index 5.9 (0-4) H 11/22/19 23:27 Troponin T < 0.010 ng/mL (0.00-0.029) 11/22/19 23:27 Total Protein 6.8 g/dL (6.3-8.2) 12/13/19 07:48 Albumin 2.4 g/dL (3.9-5) L 12/13/19 07:48 Albumin/Globulin Ratio 0.5 % 12/13/19 07:48 Lipase 18 units/L (13-60) 11/23/19 00:34 Procalcitonin 1.09 ng/mL (<0.15) 11/23/19 04:53 TSH 1.010 mlU/mL (0.270-4.200) 02/12/20 07:36 Free T4 1.08 ng/dL (0.76-1.46) 02/12/20 07:36 Urine Color Yellow (Yellow) 12/16/19 Unknown Urine Turbidity Slightly-cloudy (Clear) 12/16/19 Unknown Urine pH 5.0 (5.0-7.0) 12/16/19 Unknown Ur Specific Showell 1.018 (1.003-1.030) 12/16/19 Unknown Urine Protein 30 mg/dl mg/dL (Negative) 12/16/19 Unknown Urine Glucose (UA) Neg mg/dL (Negative) 12/16/19 Unknown Urine Ketones Neg mg/dL (Negative) 12/16/19 Unknown Urine Blood Sm (Negative) 12/16/19 Unknown Urine Nitrite Neg (Negative) 12/16/19 Unknown Urine Bilirubin Neg (Negative) 12/16/19 Unknown Urine Urobilinogen < 2.0 mg/dL (<2.0) 12/16/19 Unknown Ur Leukocyte Esterase Neg (Negative) 12/16/19 Unknown Urine WBC (Auto) 6.0 /HPF (0.0-6.0) 12/16/19 Unknown Urine RBC (Auto) 9.0 /HPF (0.0-6.0) 12/16/19 Unknown U Epithel Cells (Auto) < 1.0 /HPF (0-13.0) 12/16/19 Unknown Urine Bacteria (Auto) 2+ /HPF (Negative) 11/22/19 23:17 Hyaline Casts 3 /LPF 12/16/19 Unknown Granular Casts 3 /LPF 12/16/19 Unknown Urine Mucus Few /HPF 12/16/19 Unknown Vancomycin Trough 33.8 ug/mL (5.0-20.0) H 12/21/19 08:56 Random Vancomycin 16.2 ug/mL (0-40.0) 12/24/19 04:31 Salicylates < 0.3 mg/dL (2.8-20.0) L 11/22/19 23:27 Urine Opiates Screen Presumptive negative 11/22/19 23:17 Urine Methadone Screen Presumptive negative 11/22/19 23:17 Acetaminophen < 5.0 ug/mL (10.0-30.0) L 11/22/19 23:27 Ur Barbiturates Screen Presumptive negative 11/22/19 23:17 Ur Phencyclidine Scrn Presumptive negative 11/22/19 23:17 Ur Amphetamines Screen Presumptive negative 11/22/19 23:17 U Benzodiazepines Scrn Presumptive negative 11/22/19 23:17 Urine Cocaine Screen Presumptive negative 11/22/19 23:17 U Marijuana (THC) Screen Presumptive negative 11/22/19 23:17 Drugs of Abuse Note Disclamer 11/22/19 23:17 Plasma/Serum Alcohol 0.08 % (0-0.07) H 11/22/19 23:27 Coronavirus (PCR) Negative (Negative) 02/05/20 07:50 Hepatitis A IgM Ab Non-reactive (NonReactive) 11/23/19 01:19 Hep Bs Antigen Non-reactive (Negative) 11/23/19 01:19 Hep B Core IgM Ab Non-reactive (NonReactive) 11/23/19 01:19 Hepatitis C Antibody Non-reactive (NonReactive) 11/23/19 01:19 Blood Type O POSITIVE 12/21/19 14:54 Antibody Screen Negative 12/21/19 14:54 Crossmatch See Detail 12/21/19 14:54 - Diagnostic Impressions Diagnostic Impressions: Echocardiogram 11/23/19 03:58 Transthoracic Echocardiogram Indication: Cardiac arrest BP: 131/89 HR: 115 Conclusions *The study quality is technically difficult. *Global left ventricular wall motion and contractility are within normal limits. *The estimated ejection fraction is 55-60%. *Abnormal left ventricular diastolic filling is observed, consistent with impaired relaxation. *There is no pericardial effusion. Findings Procedure Info: The study quality is technically difficult. The study was technically limited due to the patient's inability to lay in the left lateral decubitus position. Left Ventricle: The left ventricular chamber size is normal. There is no left ventricular hypertrophy. Global left ventricular wall motion and contractility are within normal limits. Global left ventricular systolic function is normal. The estimated ejection fraction is 55-60%. Abnormal left ventricular diastolic filling is observed, consistent with impaired relaxation. Left Atrium: The left atrial chamber size is normal. Aortic Valve: The aortic valve leaflets are mildly thickened. Mitral Valve: The mitral valve leaflets are mildly thickened. There is no evidence of mitral regurgitation. Tricuspid Valve: The tricuspid valve leaflets are normal. There is trace tricuspid regurgitation. The right ventricular systolic pressure is calculated at 33 mmHg. Pulmonic Valve: The pulmonic valve appears normal. Pericardium: The pericardium appears normal. There is no pericardial effusion. Aorta: The aorta appears normal. Venous: The inferior vena cava appears normal in size. Measurements Chambers 2D Name Value Normal Range IVSd (2D) 0.94 cm (0.6 - 1.1) LVPWd (2D) 0.81 cm (0.6 - 1.1) LVIDd (2D) 3.6 cm (3.7 - 5.6) LVIDs (2D) 2.27 cm (2 - 3.8) LV FS (2D) 36.93 % - EF Teichholz (2D) 67.76 % - Ao root diameter (2D) 3.03 cm (2 - 3.7) Volumes/Mass Name Value Normal Range LA ESV SP 4CH (A/L) 16.89 ml - LA ESV SP 4CH (MOD) 15.52 ml - Diastolic/Systolic Function Name Value Normal Range MV E-wave Vmax 0.55 m/sec - MV deceleration time 200.89 msec - MV A-wave Vmax 0.68 m/sec - MV E:A ratio 0.82 ratio - Aortic Valve Name Value Normal Range AV Vmax 1.1 m/sec - AV VTI 15.9 cm - AV peak gradient 4.86 mmHg - AV mean gradient 2.59 mmHg - LVOT diameter 2 cm - LVOT Vmax 1.03 m/sec - LVOT VTI 15.87 cm - LVOT peak gradient 4.24 mmHg - LVOT mean gradient 2.41 mmHg - SV LVOT 49.77 ml - JOSÉ MIGUEL (continuity Vmax) 2.93 cm2 - JOSÉ MIGUEL (continuity VTI) 3.13 cm2 - Tricuspid Valve Name Value Normal Range TR Vmax 2.74 m/sec - TR peak gradient 303 mmHg - RAP 3 mmHg - RVSP 33 mmHg - IVC diameter 1.77 cm (1.2 - 2.3) Pulmonic Valve/Qp:Qs Name Value Normal Range PV Vmax 0.77 m/sec - PV peak gradient 2.4 mmHg - PV acceleration time 114.18 msec - Echocardiogram Limited Views 12/17/19 14:53 Transthoracic Echocardiogram Indication: R/O Vegetations BP: 144/83 HR: 133 Conclusions *Global left ventricular systolic function is mildly decreased. *The estimated ejection fraction is 45-50%. *A trivial pericardial effusion is visualized. Findings Left Ventricle: The left ventricular chamber size is normal. Global left ventricular systolic function is mildly decreased. The estimated ejection fraction is 45-50%. Left Atrium: The left atrial chamber size is normal. Right Ventricle: The right ventricular cavity size is normal. Right Atrium: The right atrial cavity size is normal. Aortic Valve: The aortic valve is not well visualized. There is no evidence of aortic regurgitation. Mitral Valve: The mitral valve leaflets are mildly thickened. There is trace of mitral regurgitation. Tricuspid Valve: The tricuspid valve leaflets are mildly thickened. There is trace tricuspid regurgitation. The right ventricular systolic pressure is calculated at 29 mmHg. Pulmonic Valve: The pulmonic valve is not well visualized. There is no evidence of pulmonic regurgitation. Pericardium: A trivial pericardial effusion is visualized. Aorta: There is no dilatation of the ascending aorta. There is no dilatation of the aortic root. Venous: The inferior vena cava appears normal in size. There is a greater than 50% respiratory change in the inferior vena cava dimension. Measurements Chambers 2D Name Value Normal Range IVSd (2D) 0.83 cm (0.6 - 1.1) LVPWd (2D) 0.98 cm (0.6 - 1.1) LVIDd (2D) 3.71 cm (3.7 - 5.6) LVIDs (2D) 2.93 cm (2 - 3.8) LV FS (2D) 21.12 % - EF Teichholz (2D) 43.71 % - Ao root diameter (2D) 3.02 cm (2 - 3.7) Volumes/Mass Name Value Normal Range LA ESV SP 4CH (A/L) 36.8 ml - LA ESV SP 2CH (A/L) 45.89 ml - LA ESV BP (A/L) 42.35 ml - LA ESV BP (A/L) index 26.63 ml/m2 - LA ESV SP 4CH (MOD) 34.42 ml - LA ESV SP 2CH (MOD) 44.21 ml - LA ESV BP (MOD) 39.82 ml - LA ESV BP (MOD) index 25.05 ml/m2 - Aortic Valve Name Value Normal Range LVOT diameter 1.63 cm - Tricuspid Valve Name Value Normal Range TR Vmax 2.56 m/sec - TR peak gradient 26 mmHg - RAP 3 mmHg - RVSP 29 mmHg - IVC diameter 1.83 cm (1.2 - 2.3) Dela Cruz/IV: Voiding Method Incontinent IV Catheter Type [Forearm] Peripheral IV IV Catheter Type [Left Forearm INT / Saline Lock ] IV Catheter Type [Right INT / Saline Lock Antecubital] IV Catheter Type [Right Hand] INT / Saline Lock IV Catheter Type [Right Wrist] Peripheral IV IV Catheter Type [Left Wrist] Peripheral IV IV Catheter Type [Left Peripheral IV Antecubital] IV Catheter Type [Right INT / Saline Lock Forearm] IV Catheter Type [Left Hand] INT / Saline Lock Active Medications - Current Medications Current Medications: Generic Name Dose Route Start Last Admin Trade Name Freq PRN Reason Stop Dose Admin Albuterol 2.5 mg 03/25/20 19:25 Proventil IH Q4HRT PRN Shortness Of Breath Albuterol/Ipratropium 1 ampul 03/30/20 20:00 04/06/20 20:07 Duoneb *Not For Prn Use* IH 1 ampul BIDRT LUCHO Administration Lipase/Protease/Amylase 1 each 11/23/19 11:50 Pancreaze 10,500 Unit FEEDTUBE PRN PRN Use w/ sod bicarb for FT Bisacodyl 10 mg 02/06/20 13:57 Dulcolax MA QDAY PRN Constipation unrelieved by MOM Enoxaparin Sodium 40 mg 03/07/20 22:00 04/06/20 22:06 Enoxaparin SUB-Q 40 mg QDAY@2200 LUCHO Administration Glycopyrrolate 2 mg 12/31/19 20:00 04/06/20 22:05 Robinul PO 2 mg TID LUCHO Administration Haloperidol Lactate 5 mg 03/05/20 09:22 04/03/20 22:52 Haldol IM 5 mg Q6H PRN Administration Agitation Hydralazine HCl 10 mg 11/24/19 00:45 03/03/20 05:57 Apresoline IV 10 mg Q6H PRN Administration SBP > 160 Hydroxyzine Pamoate 25 mg 12/06/19 10:00 04/06/20 22:05 Vistaril PO 25 mg BID LUCHO Administration Lansoprazole 30 mg 11/27/19 10:00 04/06/20 09:07 Prevacid Solutab FEEDTUBE 30 mg QDAY LUCHO Administration Levetiracetam 500 mg 11/29/19 10:00 04/06/20 22:05 Keppra PO 500 mg BID LUCHO Administration Mirtazapine 30 mg 12/06/19 10:00 04/06/20 09:08 Remeron PO 30 mg DAILY LUCHO Administration Nicotine 21 mg 02/16/20 13:00 04/06/20 09:09 Habitrol TD 21 mg QDAY LUCHO Administration Ondansetron HCl 4 mg 12/10/19 07:53 02/25/20 02:51 Zofran IV 4 mg Q4H PRN Administration Nausea And Vomiting Polyethylene Glycol 17 gm 02/06/20 13:57 Miralax 3350 PO QDAY PRN Constipation Quetiapine Fumarate 100 mg 03/06/20 10:00 04/06/20 22:06 Seroquel FEEDTUBE 100 mg BID LUCHO Administration Scopolamine 1 each 02/08/20 15:00 04/05/20 14:46 Transderm-Scop TD 1 each Q3D LUCHO Administration Sertraline HCl 25 mg 01/01/20 10:00 04/06/20 09:08 Zoloft PO 25 mg QDAY LUCHO Administration Simple Syrup 15 ml 11/23/19 11:50 Simple Syrup FEEDTUBE PRN PRN Hypoglycemia BG<70 Simple Syrup 30 ml 11/23/19 11:50 Simple Syrup FEEDTUBE PRN PRN Hypoglycemia Sodium Bicarbonate 325 mg 11/23/19 11:50 Sodium Bicarbonate FEEDTUBE PRN PRN For Clogged Feeding Tube Nutrition/Malnutrition Assess - Dietary Evaluation Nutrition/Malnutrition Findings: Nutrition Notes Start: 11/23/19 11:29 Freq: Status: Active Protocol: Document 04/03/20 10:36 EVELIA (Rec: 04/03/20 10:44 [email or web address] [email or web address]) Nutrition Notes Initial or Follow up Reassessment Other Pertinent Diagnosis s/p Cardiac arrest, acute metabolic encephalopathy [facility] Labs/Tests Reviewed Pertinent Medications Reviewed Height 5 ft 6 in Weight 49.2 kg [place] Body Weight (kg) 59.09 BMI 17.5 Subjective/Other Information Diet advanced on 03/31 per [employer]PER[employer]ENDENT recommendation; TF d/c'ed. Pt tolerating PO intake per RN report. Pt has consumed 44% of meals since diet advanced. Pt remains confused and requires restraints as she frequently tries to get out of bed on her own. She is still awaiting placement. Percent of energy/protein needs met: 71% energy 75% pro Burn Absent Trauma Absent Minimum of two criteria Yes Interpretation of Weight Loss (severe) >2% in 1 week Muscle Mass Mild Depletion (non-severe) #2 Nutrition Diagnosis Malnutrition Diagnosis Progress(for reassessment Continues documentation) #1 Nutrition Diagnosis Inadequate oral intake As Evidenced by Signs and Symptoms pt tolerating PO diet Diagnosis Progress(for reassessment Improved documentation) Is patient on ventilator? No Is Patient Ambulatory and/or Out of Bed No REE-([facility]-confined to bed) 1329.192 Kcal/Kg value to use for calculation 35 Approximate Energy Requirements Using 1722 kcal/Kg Calculation Used for Recommendations Kcal/kg Additional Notes Pro needs 1.2-1.5g/k-74g/ day Fluid needs 1ml/kcal Nutrition Intervention Change Diet Order: Continue current diet order; provide assistance at meal times as needed Add Supplement/Snack (indicate name/kcal Ensure Enlive TID /protein ) Provides kCal: 1,050 Provides Protein (gm) 60 Goal #1 PO intake of meals plus ONS to meet 100% energy and pro needs Goal #2 Wt maintenance and/or gain Anticipated Discharge Needs: Continue ONS 1-2 times daily for wt maintenance Follow-Up By: 04/08/20 Additional Comments F/U: intakes (meals/ONS), wt
[2020-04-07] MEDS: GLYCOPYRROLATE 1 MG TAB PO SCH ×3 (09:00→21:27)
[2020-04-07] MEDS: IPRATROPIUM/ALBUTEROL SULFATE 3 ML AMPUL.NEB IH SCH ×2 (09:03→19:47)
[2020-04-07] MEDS: QUEtiapine 100 MG TAB FEEDTUBE SCH ×2 (09:42→21:28)
[2020-04-07] MEDS: SERTRALINE 50 MG TAB PO SCH (09:42)
[2020-04-07] MEDS: NICOTINE 21 MG/24 HR PATCH TD SCH (09:43)
[2020-04-07] MEDS: levETIRAcetam 500 MG/5 ML ORAL LIQD PO SCH ×2 (09:43→21:28)
[2020-04-07] MEDS: LANSOPRAZOLE 30 MG SOLUTAB FEEDTUBE SCH (09:43)
[2020-04-07] MEDS: hydrOXYzine PAMOATE 25 MG CAP PO SCH ×2 (09:44→21:27)
[2020-04-07] MEDS: MIRTAZAPINE 30 MG TAB PO SCH (09:44)
[2020-04-07] MEDS: ENOXAPARIN 40 MG/0.4 ML INJ SUB-Q SCH (21:28)
[2020-04-08] MEDS: GLYCOPYRROLATE 1 MG TAB PO SCH ×3 (09:13→21:56)
[2020-04-08] MEDS: LANSOPRAZOLE 30 MG SOLUTAB FEEDTUBE SCH (10:13)
[2020-04-08] MEDS: hydrOXYzine PAMOATE 25 MG CAP PO SCH ×2 (10:13→21:56)
[2020-04-08] MEDS: levETIRAcetam 500 MG/5 ML ORAL LIQD PO SCH ×2 (10:13→21:56)
[2020-04-08] MEDS: SERTRALINE 50 MG TAB PO SCH (10:14)
[2020-04-08] MEDS: QUEtiapine 100 MG TAB FEEDTUBE SCH ×2 (10:14→21:56)
[2020-04-08] MEDS: MIRTAZAPINE 30 MG TAB PO SCH (10:14)
[2020-04-08] MEDS: SCOPOLAMINE TRANSDERMAL PATCH 72 HR TD SCH (10:15)
[2020-04-08] MEDS: NICOTINE 21 MG/24 HR PATCH TD SCH (10:15)
[2020-04-08] MEDS: IPRATROPIUM/ALBUTEROL SULFATE 3 ML AMPUL.NEB IH SCH ×2 (11:58→19:30)
--- NOTE | 2020-04-08 20:02 | Progress Note ---
Assessment and Plan Assessment and plan: Cardiopulmonary arrest outside the hospital; Status post CPR' Anoxic brain injury: suspected CT head: No acute abnormality. EEG ordered showed Generalized slowing. No seizures or epileptiform activity. -Patient now alert and awake responding appropriately -As needed haldol for agitation Acute metabolic encephalopathy/toxic encephalopathy due to the above - cont supportive care Acute Respiratory failure status post trach and PEG 12/13/2019 Tracheostomy site healed, site ulceration; resolved Anemia, microcytic - Status post 3 units PRBC transfusion, H&H low stable Hyperammonemia - likely from liver disease related to EtOH abuse - Patient had elevated ammonia level and treated with lactulose Metabolic Acidosis -Alcohol ketoacidosis vs hypoprofusion -Continue to monitor ELevated LFTs, stable now - due to ischemic hepatitis. Leucocytosis with sepsis - Source MRSA bacteremia and MSSA pneumonia. UA showed pyuria. RUQ US showed no ascites. - Repeat TTE negative for vegetation. Completed 7 days of Ceftriaxone on 11/29/2019. -Treated with Abx vancomycin 1 gm IV q 12 hour total 2 week till 12/30/2019 Severe protein calorie malnutrition Dietitian following MSSA pneumonia: Status post vancomycin till 12/30/2019 Alcohol use Disorder - given ongoing Alcohol use almost daily, s/p IV Thiamine - monitor Severe hypokalemia -Repleted Seizure disorder: treated with Keppra H. Influenzae, tracheobronchitis, treated with abx Moderate to severe fecal impaction - will add stool softner DNR CODE STATUS Awaiting placement 03/25/2020. Patient is s/p cardiac arrest, extubated and decannulated with stoma healing. Await placement per case management. 03/26/2020. Awaiting placement. 03/27/2020. Continue to work with case management for placement. Patient requiring restraints for safety. 04/06/20; patient remains in restraints secondary to agitation confusion and risk of fall, awaiting placement 04/07/20; patient clinically stable, awaiting placement History Interval history: Patient seen and examined Clinically no change, stable for discharge Awaiting placement Requiring restraints for safety due to dementia Hospitalist Physical - Constitutional Vitals: Temp Pulse Resp BP Pulse Ox 98.3 F 89 16 132/92 90 04/08/20 08:35 04/08/20 19:31 04/08/20 19:31 04/08/20 08:35 04/08/20 08:35 General appearance: Present: no acute distress, cachectic, disheveled - EENT Eyes: Present: PERRL, EOM intact - Neck Neck: Present: supple, normal ROM - Respiratory Respiratory effort: normal Respiratory: bilateral: diminished, negative: rales, rhonchi, wheezing - Cardiovascular Rhythm: regular Heart Sounds: Present: S1 & S2 - Extremities Extremities: no ischemia, No edema - Abdominal General gastrointestinal: soft, non-tender, non-distended, normal bowel sounds - Integumentary Integumentary: Present: clear, warm - Psychiatric Psychiatric: appropriate mood/affect, cooperative - Neurologic Neurologic: moves all extremities HEART Score - HEART Score Troponin: Troponin T < 0.010 ng/mL (0.00-0.029) 11/22/19 23:27 Results - Labs CBC & Chem 7: 03/25/20 04:28 03/25/20 04:28 Labs: Laboratory Last Values WBC 9.0 K/mm3 (4.5-11.0) 03/25/20 04:28 RBC 3.65 M/mm3 (3.65-5.03) 03/25/20 04:28 Hgb 10.8 gm/dl (10.1-14.3) 03/25/20 04:28 Hct 32.5 % (30.3-42.9) 03/25/20 04:28 MCV 89 fl (79-97) 03/25/20 04:28 MCH 30 pg (28-32) 03/25/20 04:28 MCHC 33 % (30-34) 03/25/20 04:28 RDW 14.1 % (13.2-15.2) 03/25/20 04:28 Plt Count 423 K/mm3 (140-440) 03/25/20 04:28 Lymph % (Auto) 27.8 % (13.4-35.0) 03/06/20 03:37 [place] % (Auto) 9.1 % (0.0-7.3) H 03/06/20 03:37 Eos % (Auto) 2.8 % (0.0-4.3) 03/06/20 03:37 Baso % (Auto) 0.7 % (0.0-1.8) 03/06/20 03:37 Lymph # 2.2 K/mm3 (1.2-5.4) 03/06/20 03:37 [place] # 0.7 K/mm3 (0.0-0.8) 03/06/20 03:37 Eos # 0.2 K/mm3 (0.0-0.4) 03/06/20 03:37 Baso # 0.1 K/mm3 (0.0-0.1) 03/06/20 03:37 Add Manual Diff Complete 12/25/19 03:47 Total Counted 200 12/25/19 03:47 Seg Neutrophils % 59.6 % (40.0-70.0) 03/06/20 03:37 Seg Neuts % (Manual) 97.5 % (40.0-70.0) H 12/25/19 03:47 Band Neutrophils % 0 % 12/25/19 03:47 Lymphocytes % (Manual) 1.0 % (13.4-35.0) L 12/25/19 03:47 Reactive Lymphs % (Man) 0 % 12/25/19 03:47 Monocytes % (Manual) 1.5 % (0.0-7.3) 12/25/19 03:47 Eosinophils % (Manual) 0 % (0.0-4.3) 12/25/19 03:47 Basophils % (Manual) 0 % (0.0-1.8) 12/25/19 03:47 Metamyelocytes % 0 % 12/25/19 03:47 Myelocytes % 0 % 12/25/19 03:47 Promyelocytes % 0 % 12/25/19 03:47 Blast Cells % 0 % 12/25/19 03:47 Nucleated RBC % Not Reportable 12/25/19 03:47 Seg Neutrophils # 4.8 K/mm3 (1.8-7.7) 03/06/20 03:37 Seg Neutrophils # Man 35.3 K/mm3 (1.8-7.7) H 12/25/19 03:47 Band Neutrophils # 0.0 K/mm3 12/25/19 03:47 Lymphocytes # (Manual) 0.4 K/mm3 (1.2-5.4) L 12/25/19 03:47 Abs React Lymphs (Man) 0.0 K/mm3 12/25/19 03:47 Monocytes # (Manual) 0.5 K/mm3 (0.0-0.8) 12/25/19 03:47 Eosinophils # (Manual) 0.0 K/mm3 (0.0-0.4) 12/25/19 03:47 Basophils # (Manual) 0.0 K/mm3 (0.0-0.1) 12/25/19 03:47 Metamyelocytes # 0.0 K/mm3 12/25/19 03:47 Myelocytes # 0.0 K/mm3 12/25/19 03:47 Promyelocytes # 0.0 K/mm3 12/25/19 03:47 Blast Cells # 0.0 K/mm3 12/25/19 03:47 Pathologist Review 12/13/19 07:48 WBC Morphology Not Reportable 12/25/19 03:47 Hypersegmented Neuts Not Reportable 12/25/19 03:47 Hyposegmented Neuts Not Reportable 12/25/19 03:47 Hypogranular Neuts Not Reportable 12/25/19 03:47 Smudge Cells Not Reportable 12/25/19 03:47 Toxic Granulation Not Reportable 12/25/19 03:47 Toxic Vacuolation Not Reportable 12/25/19 03:47 Dohle Bodies Not Reportable 12/25/19 03:47 Pelger-Huet Anomaly Not Reportable 12/25/19 03:47 Dominique Rods Not Reportable 12/25/19 03:47 Platelet Estimate Consistent w auto 12/25/19 03:47 Clumped Platelets Not Reportable 12/25/19 03:47 Plt Clumps, EDTA Not Reportable 12/25/19 03:47 Large Platelets Not Reportable 12/25/19 03:47 Giant Platelets Not Reportable 12/25/19 03:47 Platelet Satelliting Not Reportable 12/25/19 03:47 Plt Morphology Comment Not Reportable 12/25/19 03:47 RBC Morphology Not Reportable 12/25/19 03:47 Dimorphic RBCs Not Reportable 12/25/19 03:47 Polychromasia Not Reportable 12/25/19 03:47 Hypochromasia Not Reportable 12/25/19 03:47 Poikilocytosis Not Reportable 12/25/19 03:47 Anisocytosis 1+ 12/25/19 03:47 Microcytosis Not Reportable 12/25/19 03:47 Macrocytosis Not Reportable 12/25/19 03:47 Spherocytes Not Reportable 12/25/19 03:47 Pappenheimer Bodies Not Reportable 12/25/19 03:47 Sickle Cells Not Reportable 12/25/19 03:47 Target Cells Not Reportable 12/25/19 03:47 Tear Drop Cells Not Reportable 12/25/19 03:47 Ovalocytes Not Reportable 12/25/19 03:47 Helmet Cells Not Reportable 12/25/19 03:47 Frias-Sayner Bodies Not Reportable 12/25/19 03:47 [place] Rings Not Reportable 12/25/19 03:47 Jamshid Cells Not Reportable 12/25/19 03:47 Bite Cells Not Reportable 12/25/19 03:47 Crenated Cell Not Reportable 12/25/19 03:47 Elliptocytes Not Reportable 12/25/19 03:47 Acanthocytes (Spur) Not Reportable 12/25/19 03:47 Rouleaux Not Reportable 12/25/19 03:47 Hemoglobin C Crystals Not Reportable 12/25/19 03:47 Schistocytes Not Reportable 12/25/19 03:47 Malaria parasites Not Reportable 12/25/19 03:47 Gregg Bodies Not Reportable 12/25/19 03:47 Hem Pathologist Commnt No 12/25/19 03:47 PT 17.0 Sec. (12.2-14.9) H 11/23/19 03:47 INR 1.36 (0.87-1.13) H 11/23/19 03:47 APTT 128.2 Sec. (24.2-36.6) H* 11/23/19 03:47 Heparin Anti-Xa Level 0.31 U.I./ml (0.3-0.7) 11/23/19 09:03 ABG pH 7.433 pH Units (7.350-7.450) 03/08/20 13:25 ABG pCO2 40.2 mm Hg 03/08/20 13:25 ABG pO2 71.1 mm Hg (80.0-90.0) L 03/08/20 13:25 ABG HCO3 26.2 mmol/L (20.0-26.0) H 03/08/20 13:25 ABG O2 Saturation 97.0 % (95.0-99.0) 03/08/20 13:25 ABG O2 Content 11.0 (0.0-44) 03/08/20 13:25 ABG Base Excess 1.8 mmol/L (-2.0-3.0) 03/08/20 13:25 ABG Hemoglobin 8.2 gm/dl (12.0-16.0) L 03/08/20 13:25 ABG Carboxyhemoglobin 1.7 % (0.0-5.0) 03/08/20 13:25 ABG Methemoglobin 0.5 % (0.0-1.5) 03/08/20 13:25 Oxyhemoglobin 94.8 % (95.0-99.0) L 03/08/20 13:25 FiO2 21 % 03/08/20 13:25 Sodium 138 mmol/L (137-145) 03/25/20 04:28 Potassium 4.2 mmol/L (3.6-5.0) 03/25/20 04:28 Chloride 99.3 mmol/L (98-107) 03/25/20 04:28 Carbon Dioxide 28 mmol/L (22-30) 03/25/20 04:28 Anion Gap 15 mmol/L 03/25/20 04:28 BUN 23 mg/dL (7-17) H 03/25/20 04:28 Creatinine 0.5 mg/dL (0.7-1.2) L 03/25/20 04:28 Estimated GFR > 60 ml/min 03/25/20 04:28 BUN/Creatinine Ratio 46 % 03/25/20 04:28 Glucose 121 mg/dL (65-100) H 03/25/20 04:28 POC Glucose 117 (70-105) H 04/05/20 00:16 Lactic Acid 1.80 mmol/L (0.7-2.0) 11/25/19 05:05 Calcium 10.3 mg/dL (8.4-10.2) H 03/25/20 04:28 Ionized Calcium 4.5 mg/dL (4.8-5.6) L 11/23/19 06:32 Phosphorus 4.20 mg/dL (2.5-4.5) D 11/28/19 08:59 Magnesium 1.90 mg/dL (1.7-2.3) 02/28/20 03:40 Total Bilirubin 0.40 mg/dL (0.1-1.2) 12/13/19 07:48 AST 27 units/L (5-40) 12/13/19 07:48 ALT 26 units/L (7-56) 12/13/19 07:48 Alkaline Phosphatase 316 units/L (35-129) H 12/13/19 07:48 Ammonia 42.0 umol/L (25-60) 11/29/19 13:41 Total Creatine Kinase 139 units/L (30-135) H 11/22/19 23:27 CK-MB (CK-2) 8.3 ng/mL (0.0-4.0) H 11/22/19 23:27 CK-MB (CK-2) Rel Index 5.9 (0-4) H 11/22/19 23:27 Troponin T < 0.010 ng/mL (0.00-0.029) 11/22/19 23:27 Total Protein 6.8 g/dL (6.3-8.2) 12/13/19 07:48 Albumin 2.4 g/dL (3.9-5) L 12/13/19 07:48 Albumin/Globulin Ratio 0.5 % 12/13/19 07:48 Lipase 18 units/L (13-60) 11/23/19 00:34 Procalcitonin 1.09 ng/mL (<0.15) 11/23/19 04:53 TSH 1.010 mlU/mL (0.270-4.200) 02/12/20 07:36 Free T4 1.08 ng/dL (0.76-1.46) 02/12/20 07:36 Urine Color Yellow (Yellow) 12/16/19 Unknown Urine Turbidity Slightly-cloudy (Clear) 12/16/19 Unknown Urine pH 5.0 (5.0-7.0) 12/16/19 Unknown Ur Specific [place] 1.018 (1.003-1.030) 12/16/19 Unknown Urine Protein 30 mg/dl mg/dL (Negative) 12/16/19 Unknown Urine Glucose (UA) Neg mg/dL (Negative) 12/16/19 Unknown Urine Ketones Neg mg/dL (Negative) 12/16/19 Unknown Urine Blood Sm (Negative) 12/16/19 Unknown Urine Nitrite Neg (Negative) 12/16/19 Unknown Urine Bilirubin Neg (Negative) 12/16/19 Unknown Urine Urobilinogen < 2.0 mg/dL (<2.0) 12/16/19 Unknown Ur Leukocyte Esterase Neg (Negative) 12/16/19 Unknown Urine WBC (Auto) 6.0 /HPF (0.0-6.0) 12/16/19 Unknown Urine RBC (Auto) 9.0 /HPF (0.0-6.0) 12/16/19 Unknown U Epithel Cells (Auto) < 1.0 /HPF (0-13.0) 12/16/19 Unknown Urine Bacteria (Auto) 2+ /HPF (Negative) 11/22/19 23:17 Hyaline Casts 3 /LPF 12/16/19 Unknown Granular Casts 3 /LPF 12/16/19 Unknown Urine Mucus Few /HPF 12/16/19 Unknown Vancomycin Trough 33.8 ug/mL (5.0-20.0) H 12/21/19 08:56 Random Vancomycin 16.2 ug/mL (0-40.0) 12/24/19 04:31 Salicylates < 0.3 mg/dL (2.8-20.0) L 11/22/19 23:27 Urine Opiates Screen Presumptive negative 11/22/19 23:17 Urine Methadone Screen Presumptive negative 11/22/19 23:17 Acetaminophen < 5.0 ug/mL (10.0-30.0) L 11/22/19 23:27 Ur Barbiturates Screen Presumptive negative 11/22/19 23:17 Ur Phencyclidine Scrn Presumptive negative 11/22/19 23:17 Ur Amphetamines Screen Presumptive negative 11/22/19 23:17 U Benzodiazepines Scrn Presumptive negative 11/22/19 23:17 Urine Cocaine Screen Presumptive negative 11/22/19 23:17 U Marijuana (THC) Screen Presumptive negative 11/22/19 23:17 Drugs of Abuse Note Disclamer 11/22/19 23:17 Plasma/Serum Alcohol 0.08 % (0-0.07) H 11/22/19 23:27 Coronavirus (PCR) Negative (Negative) 02/05/20 07:50 Hepatitis A IgM Ab Non-reactive (NonReactive) 11/23/19 01:19 Hep Bs Antigen Non-reactive (Negative) 11/23/19 01:19 Hep B Core IgM Ab Non-reactive (NonReactive) 11/23/19 01:19 Hepatitis C Antibody Non-reactive (NonReactive) 11/23/19 01:19 Blood Type O POSITIVE 12/21/19 14:54 Antibody Screen Negative 12/21/19 14:54 Crossmatch See Detail 12/21/19 14:54 - Diagnostic Impressions Diagnostic Impressions: Echocardiogram 11/23/19 03:58 Transthoracic Echocardiogram Indication: Cardiac arrest BP: 131/89 HR: 115 Conclusions *The study quality is technically difficult. *Global left ventricular wall motion and contractility are within normal limits. *The estimated ejection fraction is 55-60%. *Abnormal left ventricular diastolic filling is observed, consistent with impaired relaxation. *There is no pericardial effusion. Findings Procedure Info: The study quality is technically difficult. The study was technically limited due to the patient's inability to lay in the left lateral decubitus position. Left Ventricle: The left ventricular chamber size is normal. There is no left ventricular hypertrophy. Global left ventricular wall motion and contractility are within normal limits. Global left ventricular systolic function is normal. The estimated ejection fraction is 55-60%. Abnormal left ventricular diastolic filling is observed, consistent with impaired relaxation. Left Atrium: The left atrial chamber size is normal. Aortic Valve: The aortic valve leaflets are mildly thickened. Mitral Valve: The mitral valve leaflets are mildly thickened. There is no evidence of mitral regurgitation. Tricuspid Valve: The tricuspid valve leaflets are normal. There is trace tricuspid regurgitation. The right ventricular systolic pressure is calculated at 33 mmHg. Pulmonic Valve: The pulmonic valve appears normal. Pericardium: The pericardium appears normal. There is no pericardial effusion. Aorta: The aorta appears normal. Venous: The inferior vena cava appears normal in size. Measurements Chambers 2D Name Value Normal Range IVSd (2D) 0.94 cm (0.6 - 1.1) LVPWd (2D) 0.81 cm (0.6 - 1.1) LVIDd (2D) 3.6 cm (3.7 - 5.6) LVIDs (2D) 2.27 cm (2 - 3.8) LV FS (2D) 36.93 % - EF Teichholz (2D) 67.76 % - Ao root diameter (2D) 3.03 cm (2 - 3.7) Volumes/Mass Name Value Normal Range LA ESV SP 4CH (A/L) 16.89 ml - LA ESV SP 4CH (MOD) 15.52 ml - Diastolic/Systolic Function Name Value Normal Range MV E-wave Vmax 0.55 m/sec - MV deceleration time 200.89 msec - MV A-wave Vmax 0.68 m/sec - MV E:A ratio 0.82 ratio - Aortic Valve Name Value Normal Range AV Vmax 1.1 m/sec - AV VTI 15.9 cm - AV peak gradient 4.86 mmHg - AV mean gradient 2.59 mmHg - LVOT diameter 2 cm - LVOT Vmax 1.03 m/sec - LVOT VTI 15.87 cm - LVOT peak gradient 4.24 mmHg - LVOT mean gradient 2.41 mmHg - SV LVOT 49.77 ml - JOSÉ MIGUEL (continuity Vmax) 2.93 cm2 - JOSÉ MIGUEL (continuity VTI) 3.13 cm2 - Tricuspid Valve Name Value Normal Range TR Vmax 2.74 m/sec - TR peak gradient 303 mmHg - RAP 3 mmHg - RVSP 33 mmHg - IVC diameter 1.77 cm (1.2 - 2.3) Pulmonic Valve/Qp:Qs Name Value Normal Range PV Vmax 0.77 m/sec - PV peak gradient 2.4 mmHg - PV acceleration time 114.18 msec - Echocardiogram Limited Views 12/17/19 14:53 Transthoracic Echocardiogram Indication: R/O Vegetations BP: 144/83 HR: 133 Conclusions *Global left ventricular systolic function is mildly decreased. *The estimated ejection fraction is 45-50%. *A trivial pericardial effusion is visualized. Findings Left Ventricle: The left ventricular chamber size is normal. Global left ventricular systolic function is mildly decreased. The estimated ejection fraction is 45-50%. Left Atrium: The left atrial chamber size is normal. Right Ventricle: The right ventricular cavity size is normal. Right Atrium: The right atrial cavity size is normal. Aortic Valve: The aortic valve is not well visualized. There is no evidence of aortic regurgitation. Mitral Valve: The mitral valve leaflets are mildly thickened. There is trace of mitral regurgitation. Tricuspid Valve: The tricuspid valve leaflets are mildly thickened. There is trace tricuspid regurgitation. The right ventricular systolic pressure is calculated at 29 mmHg. Pulmonic Valve: The pulmonic valve is not well visualized. There is no evidence of pulmonic regurgitation. Pericardium: A trivial pericardial effusion is visualized. Aorta: There is no dilatation of the ascending aorta. There is no dilatation of the aortic root. Venous: The inferior vena cava appears normal in size. There is a greater than 50% respiratory change in the inferior vena cava dimension. Measurements Chambers 2D Name Value Normal Range IVSd (2D) 0.83 cm (0.6 - 1.1) LVPWd (2D) 0.98 cm (0.6 - 1.1) LVIDd (2D) 3.71 cm (3.7 - 5.6) LVIDs (2D) 2.93 cm (2 - 3.8) LV FS (2D) 21.12 % - EF Teichholz (2D) 43.71 % - Ao root diameter (2D) 3.02 cm (2 - 3.7) Volumes/Mass Name Value Normal Range LA ESV SP 4CH (A/L) 36.8 ml - LA ESV SP 2CH (A/L) 45.89 ml - LA ESV BP (A/L) 42.35 ml - LA ESV BP (A/L) index 26.63 ml/m2 - LA ESV SP 4CH (MOD) 34.42 ml - LA ESV SP 2CH (MOD) 44.21 ml - LA ESV BP (MOD) 39.82 ml - LA ESV BP (MOD) index 25.05 ml/m2 - Aortic Valve Name Value Normal Range LVOT diameter 1.63 cm - Tricuspid Valve Name Value Normal Range TR Vmax 2.56 m/sec - TR peak gradient 26 mmHg - RAP 3 mmHg - RVSP 29 mmHg - IVC diameter 1.83 cm (1.2 - 2.3) [place]/IV: Voiding Method Incontinent IV Catheter Type [Forearm] Peripheral IV IV Catheter Type [Left Forearm INT / Saline Lock ] IV Catheter Type [Right INT / Saline Lock Antecubital] IV Catheter Type [Right Hand] INT / Saline Lock IV Catheter Type [Right Wrist] Peripheral IV IV Catheter Type [Left Wrist] Peripheral IV IV Catheter Type [Left Peripheral IV Antecubital] IV Catheter Type [Right INT / Saline Lock Forearm] IV Catheter Type [Left Hand] INT / Saline Lock Active Medications - Current Medications Current Medications: Generic Name Dose Route Start Last Admin Trade Name Freq PRN Reason Stop Dose Admin Albuterol 2.5 mg 03/25/20 19:25 04/07/20 08:59 Proventil IH 2.5 mg Q4HRT PRN Administration Shortness Of Breath Albuterol/Ipratropium 1 ampul 03/30/20 20:00 04/08/20 19:30 Duoneb *Not For Prn Use* IH 1 ampul BIDRT LUCHO Administration Lipase/Protease/Amylase 1 each 11/23/19 11:50 Pancreaze 10,500 Unit FEEDTUBE PRN PRN Use w/ sod bicarb for FT Bisacodyl 10 mg 02/06/20 13:57 Dulcolax LA QDAY PRN Constipation unrelieved by MOM Enoxaparin Sodium 40 mg 03/07/20 22:00 04/07/20 21:28 Enoxaparin SUB-Q 40 mg QDAY@2200 LUCHO Administration Glycopyrrolate 2 mg 12/31/19 20:00 04/08/20 13:24 Robinul PO 2 mg TID LUCHO Administration Haloperidol Lactate 5 mg 03/05/20 09:22 04/03/20 22:52 Haldol IM 5 mg Q6H PRN Administration Agitation Hydralazine HCl 10 mg 11/24/19 00:45 03/03/20 05:57 Apresoline IV 10 mg Q6H PRN Administration SBP > 160 Hydroxyzine Pamoate 25 mg 12/06/19 10:00 04/08/20 10:13 Vistaril PO 25 mg BID LUCHO Administration Lansoprazole 30 mg 11/27/19 10:00 04/08/20 10:13 Prevacid Solutab FEEDTUBE 30 mg QDAY LUCHO Administration Levetiracetam 500 mg 11/29/19 10:00 04/08/20 10:13 Keppra PO 500 mg BID LUCHO Administration Mirtazapine 30 mg 12/06/19 10:00 04/08/20 10:14 Remeron PO 30 mg DAILY LUCHO Administration Nicotine 21 mg 02/16/20 13:00 04/08/20 10:15 Habitrol TD 21 mg QDAY LUCHO Administration Ondansetron HCl 4 mg 12/10/19 07:53 02/25/20 02:51 Zofran IV 4 mg Q4H PRN Administration Nausea And Vomiting Polyethylene Glycol 17 gm 02/06/20 13:57 Miralax 3350 PO QDAY PRN Constipation Quetiapine Fumarate 100 mg 03/06/20 10:00 04/08/20 10:14 Seroquel FEEDTUBE 100 mg BID LUCHO Administration Scopolamine 1 each 02/08/20 15:00 04/08/20 10:15 Transderm-Scop TD 1 each Q3D LUCHO Administration Sertraline HCl 25 mg 01/01/20 10:00 04/08/20 10:14 Zoloft PO 25 mg QDAY LUCHO Administration Simple Syrup 15 ml 11/23/19 11:50 Simple Syrup FEEDTUBE PRN PRN Hypoglycemia BG<70 Simple Syrup 30 ml 11/23/19 11:50 Simple Syrup FEEDTUBE PRN PRN Hypoglycemia Sodium Bicarbonate 325 mg 11/23/19 11:50 Sodium Bicarbonate FEEDTUBE PRN PRN For Clogged Feeding Tube Nutrition/Malnutrition Assess - Dietary Evaluation Nutrition/Malnutrition Findings: Nutrition Notes Start: 11/23/19 11:29 Freq: Status: Active Protocol: Document 04/08/20 11:31 LM (Rec: 04/08/20 12:04 LM [id number]) Nutrition Notes Initial or Follow up Reassessment Other Pertinent Diagnosis s/p Cardiac arrest, acute metabolic encephalopathy Current Diet Mech soft with chopped meats Labs/Tests Reviewed Pertinent Medications Reviewed Height 5 ft 6 in Weight 43.3 kg [place] Body Weight (kg) 59.09 BMI 15.4 Weight change and time frame wt change noted Subjective/Other Information Pt ate 50% of breakfast and drank 50% of ONS per chart. Percent of energy/protein needs met: 82%/100% (with one Ensure) Burn Absent Trauma Absent GI Symptoms None Current % PO Fair (50-74%) Minimum of two criteria Yes Interpretation of Weight Loss (severe) >2% in 1 week Muscle Mass Mild Depletion (non-severe) #2 Nutrition Diagnosis Malnutrition Diagnosis Progress(for reassessment Continues documentation) #1 Nutrition Diagnosis Inadequate oral intake As Evidenced by Signs and Symptoms pt eating 50% Diagnosis Progress(for reassessment Improved documentation) Is patient on ventilator? No Is Patient Ambulatory and/or Out of Bed No REE-([place] Davis-St. Jeor-confined to bed) 1258.464 Kcal/Kg value to use for calculation 35 Approximate Energy Requirements Using 1516 kcal/Kg Calculation Used for Recommendations Kcal/kg Additional Notes Pro needs 1.2-1.5g/k-74g/ day Fluid needs 1ml/kcal Nutrition Intervention Change Diet Order: Continue current diet order; provide assistance at meal times as needed Add Supplement/Snack (indicate name/kcal Ensure Enlive TID /protein ) Provides kCal: 1,050 Provides Protein (gm) 60 Goal #1 PO intake of meals plus ONS to meet 100% energy and pro needs Goal #2 Wt maintenance and/or gain Anticipated Discharge Needs: Continue ONS 1-2 times daily for wt maintenance Follow-Up By: 04/10/20 Additional Comments F/U for intakes
[2020-04-08] MEDS: ENOXAPARIN 40 MG/0.4 ML INJ SUB-Q SCH (21:57)
[2020-04-09] MEDS: IPRATROPIUM/ALBUTEROL SULFATE 3 ML AMPUL.NEB IH SCH ×2 (07:22→20:53)
[2020-04-09] MEDS: MIRTAZAPINE 30 MG TAB PO SCH (09:32)
[2020-04-09] MEDS: NICOTINE 21 MG/24 HR PATCH TD SCH (09:32)
[2020-04-09] MEDS: GLYCOPYRROLATE 1 MG TAB PO SCH ×3 (09:32→22:43)
[2020-04-09] MEDS: LANSOPRAZOLE 30 MG SOLUTAB FEEDTUBE SCH (09:33)
[2020-04-09] MEDS: hydrOXYzine PAMOATE 25 MG CAP PO SCH ×2 (09:33→22:43)
[2020-04-09] MEDS: QUEtiapine 100 MG TAB FEEDTUBE SCH ×2 (09:33→22:43)
[2020-04-09] MEDS: levETIRAcetam 500 MG/5 ML ORAL LIQD PO SCH ×2 (09:33→22:43)
[2020-04-09] MEDS: SERTRALINE 50 MG TAB PO SCH (09:33)
--- NOTE | 2020-04-09 13:24 | Progress Note ---
Assessment and Plan Patient sleeping . Patient is resting on 2 1/2 litres O2. O2 saturation 97%. No acute respiratory distress. Recommend physical therapy.. - Patient Problems (1) Acute respiratory failure Current Visit: Yes Status: Acute Qualifiers: Respiratory failure complication: hypoxia Qualified Code(s): J96.01 - Acute respiratory failure with hypoxia Plan to address problem: Patient decanulated . O2 21/2 litres via nasal canula. Aspiration precautions. Continue albuterol/atrovent aerosol treatments q 6 hours. (2) Alcohol abuse Current Visit: Yes Status: Acute Plan to address problem: Management as per primary care. (3) Cardiac arrest with successful resuscitation Current Visit: Yes Status: Acute Plan to address problem: Patient successfully resucitated. S/P tracheostomy, Decanulated. O2 2 1/2 2 litres via nasal canula. (4) Increased ammonia level Current Visit: Yes Status: Acute Plan to address problem: Management as per primary care. (5) Seizure disorder Current Visit: Yes Status: Acute Plan to address problem: Management as per primary care and neurology. (6) HTN (hypertension) Current Visit: No Status: Acute Plan to address problem: Management as per primary care. Subjective Date of service: 04/09/20 Principal diagnosis: Ac cardiopulmonary arrest; Ac hypoxemic resp failure; Acute encephalopathy Interval history: Patient sleeping . Patient is resting on 2 1/2 litres O2. O2 saturation 97%. No acute respiratory distress. Recommend physical therapy. Objective Vital Signs - 12hr 04/09/20 04/09/20 04/09/20 03:38 08:11 08:18 Temperature 98.0 F 98.5 F Pulse Rate 102 H 97 H Pulse Rate [ Anterior Bilateral Throughout] Pulse Rate [ 72 Apical] Respiratory 18 18 20 Rate Respiratory Rate [Anterior Bilateral Throughout] Blood Pressure 140/88 156/92 O2 Sat by Pulse 95 98 94 Oximetry 04/09/20 09:55 Temperature Pulse Rate Pulse Rate [ 97 H Anterior Bilateral Throughout] Pulse Rate [ Apical] Respiratory Rate Respiratory 17 Rate [Anterior Bilateral Throughout] Blood Pressure O2 Sat by Pulse Oximetry Constitutional: no acute distress, asleep Eyes: non-icteric ENT: oropharynx moist, other (clean trach stoma) Neck: supple, no lymphadenopathy, no JVD Effort: normal Ascultation: Bilateral: diminished breath sounds, rhonchi Percussion: Bilateral: not dull Cardiovascular: regular rate and rhythm (tachycardia), other (S1,S2) Gastrointestinal: normoactive bowel sounds, soft, non-tender, non-distended Integumentary: normal Extremities: no cyanosis, no edema, pulses normal, no ischemia or petechiae Neurologic: normal mental status, non-focal exam, pupils equal and round, CN II- XII normal, motor strength normal and Psychiatric: anxious CBC and BMP: 03/25/20 04:28 03/25/20 04:28 ABG, PT/INR, D-dimer: ABG ABG pH 7.433 pH Units (7.350-7.450) 03/08/20 13:25 ABG pCO2 40.2 mm Hg 03/08/20 13:25 ABG pO2 71.1 mm Hg (80.0-90.0) L 03/08/20 13:25 ABG O2 Saturation 97.0 % (95.0-99.0) 03/08/20 13:25 PT/INR, D-dimer PT 17.0 Sec. (12.2-14.9) H 11/23/19 03:47 INR 1.36 (0.87-1.13) H 11/23/19 03:47 Abnormal lab findings: Abnormal Labs 11/22/19 11/22/19 11/22/19 23:17 23:18 23:27 WBC 21.2 H RBC 3.59 L Hgb 9.8 L Hct MCH 27 L RDW 18.6 H Plt Count 454 H Lymph % (Auto) Williams % (Auto) Williams # Baso # Seg Neutrophils % Seg Neuts % (Manual) 86.0 H Lymphocytes % (Manual) 9.0 L Monocytes % (Manual) Seg Neutrophils # Seg Neutrophils # Man 18.2 H Lymphocytes # (Manual) Monocytes # (Manual) 1.1 H Eosinophils # (Manual) Basophils # (Manual) PT INR APTT ABG pH ABG pO2 ABG HCO3 ABG O2 Saturation ABG Base Excess ABG Hemoglobin Oxyhemoglobin Sodium Potassium Chloride Carbon Dioxide BUN Creatinine Glucose POC Glucose 53 L Lactic Acid Calcium Ionized Calcium Phosphorus Magnesium Total Bilirubin AST ALT Alkaline Phosphatase Ammonia Total Creatine Kinase CK-MB (CK-2) CK-MB (CK-2) Rel Index Total Protein Albumin Urine WBC (Auto) 40.0 H Vancomycin Trough Salicylates Acetaminophen Plasma/Serum Alcohol Crossmatch 11/22/19 11/22/19 11/22/19 23:27 23:27 23:27 WBC RBC Hgb Hct MCH RDW Plt Count Lymph % (Auto) Williams % (Auto) Williams # Baso # Seg Neutrophils % Seg Neuts % (Manual) Lymphocytes % (Manual) Monocytes % (Manual) Seg Neutrophils # Seg Neutrophils # Man Lymphocytes # (Manual) Monocytes # (Manual) Eosinophils # (Manual) Basophils # (Manual) PT INR APTT ABG pH ABG pO2 ABG HCO3 ABG O2 Saturation ABG Base Excess ABG Hemoglobin Oxyhemoglobin Sodium Potassium 2.4 L* Chloride 85.1 L Carbon Dioxide 19 L BUN Creatinine 0.5 L Glucose 261 H POC Glucose Lactic Acid Calcium Ionized Calcium Phosphorus Magnesium Total Bilirubin AST 609 H ALT 152 H Alkaline Phosphatase 160 H Ammonia 117.0 H Total Creatine Kinase 139 H CK-MB (CK-2) 8.3 H CK-MB (CK-2) Rel Index 5.9 H Total Protein Albumin 3.6 L Urine WBC (Auto) Vancomycin Trough Salicylates < 0.3 L Acetaminophen Plasma/Serum Alcohol Crossmatch 11/22/19 11/22/19 11/23/19 23:27 23:27 01:10 WBC RBC Hgb Hct MCH RDW Plt Count Lymph % (Auto) Williams % (Auto) Williams # Baso # Seg Neutrophils % Seg Neuts % (Manual) Lymphocytes % (Manual) Monocytes % (Manual) Seg Neutrophils # Seg Neutrophils # Man Lymphocytes # (Manual) Monocytes # (Manual) Eosinophils # (Manual) Basophils # (Manual) PT INR APTT ABG pH 7.273 L ABG pO2 209.7 H ABG HCO3 ABG O2 Saturation 99.2 H ABG Base Excess -3.9 L ABG Hemoglobin 10.6 L Oxyhemoglobin 93.9 L Sodium Potassium Chloride Carbon Dioxide BUN Creatinine Glucose POC Glucose Lactic Acid Calcium Ionized Calcium Phosphorus Magnesium Total Bilirubin AST ALT Alkaline Phosphatase Ammonia Total Creatine Kinase CK-MB (CK-2) CK-MB (CK-2) Rel Index Total Protein Albumin Urine WBC (Auto) Vancomycin Trough Salicylates Acetaminophen < 5.0 L Plasma/Serum Alcohol 0.08 H Crossmatch 11/23/19 11/23/19 11/23/19 01:19 01:19 03:47 WBC RBC Hgb Hct MCH RDW Plt Count Lymph % (Auto) Williams % (Auto) Williams # Baso # Seg Neutrophils % Seg Neuts % (Manual) Lymphocytes % (Manual) Monocytes % (Manual) Seg Neutrophils # Seg Neutrophils # Man Lymphocytes # (Manual) Monocytes # (Manual) Eosinophils # (Manual) Basophils # (Manual) PT 16.3 H INR 1.29 H APTT ABG pH ABG pO2 ABG HCO3 ABG O2 Saturation ABG Base Excess ABG Hemoglobin Oxyhemoglobin Sodium Potassium Chloride Carbon Dioxide BUN Creatinine Glucose POC Glucose Lactic Acid 2.10 H* 5.00 H* Calcium Ionized Calcium Phosphorus Magnesium Total Bilirubin AST ALT Alkaline Phosphatase Ammonia Total Creatine Kinase CK-MB (CK-2) CK-MB (CK-2) Rel Index Total Protein Albumin Urine WBC (Auto) Vancomycin Trough Salicylates Acetaminophen Plasma/Serum Alcohol Crossmatch 11/23/19 11/23/19 11/23/19 03:47 03:47 04:53 WBC RBC Hgb 9.4 L Hct MCH RDW Plt Count Lymph % (Auto) Williams % (Auto) Williams # Baso # Seg Neutrophils % Seg Neuts % (Manual) Lymphocytes % (Manual) Monocytes % (Manual) Seg Neutrophils # Seg Neutrophils # Man Lymphocytes # (Manual) Monocytes # (Manual) Eosinophils # (Manual) Basophils # (Manual) PT 17.0 H INR 1.36 H APTT 128.2 H* ABG pH ABG pO2 ABG HCO3 ABG O2 Saturation ABG Base Excess ABG Hemoglobin Oxyhemoglobin Sodium Potassium Chloride Carbon Dioxide 18 L BUN Creatinine 0.5 L Glucose 105 H POC Glucose Lactic Acid Calcium 8.3 L Ionized Calcium Phosphorus 2.40 L Magnesium Total Bilirubin 1.30 H AST 761 H ALT 158 H Alkaline Phosphatase 143 H Ammonia Total Creatine Kinase CK-MB (CK-2) CK-MB (CK-2) Rel Index Total Protein Albumin 2.8 L Urine WBC (Auto) Vancomycin Trough Salicylates Acetaminophen Plasma/Serum Alcohol Crossmatch 11/23/19 11/23/19 11/23/19 05:12 06:32 06:32 WBC 16.8 H RBC 3.31 L Hgb 8.9 L Hct 28.7 L MCH 27 L RDW 18.6 H Plt Count Lymph % (Auto) Williams % (Auto) Williams # Baso # Seg Neutrophils % Seg Neuts % (Manual) 94.0 H Lymphocytes % (Manual) 1.0 L Monocytes % (Manual) Seg Neutrophils # Seg Neutrophils # Man 15.8 H Lymphocytes # (Manual) 0.2 L Monocytes # (Manual) Eosinophils # (Manual) Basophils # (Manual) PT INR APTT ABG pH ABG pO2 ABG HCO3 ABG O2 Saturation ABG Base Excess -3.2 L ABG Hemoglobin 9.0 L Oxyhemoglobin 93.6 L Sodium Potassium Chloride Carbon Dioxide BUN Creatinine Glucose POC Glucose Lactic Acid Calcium Ionized Calcium 4.5 L Phosphorus Magnesium Total Bilirubin AST ALT Alkaline Phosphatase Ammonia Total Creatine Kinase CK-MB (CK-2) CK-MB (CK-2) Rel Index Total Protein Albumin Urine WBC (Auto) Vancomycin Trough Salicylates Acetaminophen Plasma/Serum Alcohol Crossmatch 11/23/19 11/24/19 11/24/19 06:32 04:35 04:35 WBC RBC Hgb Hct MCH RDW Plt Count Lymph % (Auto) Williams % (Auto) Williams # Baso # Seg Neutrophils % Seg Neuts % (Manual) Lymphocytes % (Manual) Monocytes % (Manual) Seg Neutrophils # Seg Neutrophils # Man Lymphocytes # (Manual) Monocytes # (Manual) Eosinophils # (Manual) Basophils # (Manual) PT INR APTT ABG pH ABG pO2 ABG HCO3 ABG O2 Saturation ABG Base Excess ABG Hemoglobin Oxyhemoglobin Sodium Potassium Chloride Carbon Dioxide BUN Creatinine Glucose POC Glucose Lactic Acid 3.30 H* Calcium Ionized Calcium Phosphorus Magnesium 1.40 L Total Bilirubin AST ALT Alkaline Phosphatase Ammonia 98.0 H Total Creatine Kinase CK-MB (CK-2) CK-MB (CK-2) Rel Index Total Protein Albumin Urine WBC (Auto) Vancomycin Trough Salicylates Acetaminophen Plasma/Serum Alcohol Crossmatch 11/24/19 11/25/19 11/25/19 05:22 04:34 05:05 WBC 17.3 H RBC 2.88 L Hgb 7.8 L Hct 24.6 L MCH 27 L RDW 18.5 H Plt Count Lymph % (Auto) 7.7 L Williams % (Auto) 9.7 H Williams # 1.7 H Baso # Seg Neutrophils % 82.2 H Seg Neuts % (Manual) Lymphocytes % (Manual) Monocytes % (Manual) Seg Neutrophils # 14.2 H Seg Neutrophils # Man Lymphocytes # (Manual) Monocytes # (Manual) Eosinophils # (Manual) Basophils # (Manual) PT INR APTT ABG pH 7.475 H ABG pO2 ABG HCO3 29.4 H 32.3 H ABG O2 Saturation ABG Base Excess 5.4 H 6.9 H ABG Hemoglobin 9.0 L 10.6 L Oxyhemoglobin 94.3 L Sodium Potassium Chloride Carbon Dioxide BUN Creatinine Glucose POC Glucose Lactic Acid Calcium Ionized Calcium Phosphorus Magnesium Total Bilirubin AST ALT Alkaline Phosphatase Ammonia Total Creatine Kinase CK-MB (CK-2) CK-MB (CK-2) Rel Index Total Protein Albumin Urine WBC (Auto) Vancomycin Trough Salicylates Acetaminophen Plasma/Serum Alcohol Crossmatch 11/25/19 11/25/19 11/26/19 05:05 22:46 03:31 WBC RBC Hgb Hct MCH RDW Plt Count Lymph % (Auto) Williams % (Auto) Williams # Baso # Seg Neutrophils % Seg Neuts % (Manual) Lymphocytes % (Manual) Monocytes % (Manual) Seg Neutrophils # Seg Neutrophils # Man Lymphocytes # (Manual) Monocytes # (Manual) Eosinophils # (Manual) Basophils # (Manual) PT INR APTT ABG pH 7.459 H ABG pO2 ABG HCO3 34.2 H ABG O2 Saturation ABG Base Excess 9.4 H ABG Hemoglobin 7.6 L Oxyhemoglobin 94.8 L Sodium 152 H D 147 H Potassium 2.3 L* D 2.8 L* D Chloride 107.8 H Carbon Dioxide 31 H D 33 H BUN Creatinine 0.6 L 0.6 L Glucose 148 H 177 H POC Glucose Lactic Acid Calcium Ionized Calcium Phosphorus Magnesium Total Bilirubin AST 105 H ALT 71 H Alkaline Phosphatase 155 H Ammonia Total Creatine Kinase CK-MB (CK-2) CK-MB (CK-2) Rel Index Total Protein 5.2 L D Albumin 2.9 L Urine WBC (Auto) Vancomycin Trough Salicylates Acetaminophen Plasma/Serum Alcohol Crossmatch 11/26/19 11/26/19 11/27/19 08:24 08:24 04:20 WBC 12.0 H RBC 3.00 L Hgb 8.0 L 9.3 L Hct 25.9 L 29.7 L MCH 27 L RDW 18.5 H Plt Count Lymph % (Auto) Williams % (Auto) Williams # Baso # Seg Neutrophils % Seg Neuts % (Manual) 89.0 H Lymphocytes % (Manual) 4.0 L Monocytes % (Manual) Seg Neutrophils # Seg Neutrophils # Man 10.7 H Lymphocytes # (Manual) 0.5 L Monocytes # (Manual) Eosinophils # (Manual) Basophils # (Manual) PT INR APTT ABG pH ABG pO2 ABG HCO3 ABG O2 Saturation ABG Base Excess ABG Hemoglobin Oxyhemoglobin Sodium 146 H Potassium 3.4 L D Chloride Carbon Dioxide BUN Creatinine 0.5 L Glucose 165 H POC Glucose Lactic Acid Calcium Ionized Calcium Phosphorus Magnesium Total Bilirubin AST 57 H ALT Alkaline Phosphatase 166 H Ammonia Total Creatine Kinase CK-MB (CK-2) CK-MB (CK-2) Rel Index Total Protein Albumin 2.9 L Urine WBC (Auto) Vancomycin Trough Salicylates Acetaminophen Plasma/Serum Alcohol Crossmatch 11/27/19 11/27/19 11/27/19 04:28 04:28 04:42 WBC RBC Hgb Hct MCH RDW Plt Count Lymph % (Auto) Williams % (Auto) Williams # Baso # Seg Neutrophils % Seg Neuts % (Manual) Lymphocytes % (Manual) Monocytes % (Manual) Seg Neutrophils # Seg Neutrophils # Man Lymphocytes # (Manual) Monocytes # (Manual) Eosinophils # (Manual) Basophils # (Manual) PT INR APTT ABG pH 7.470 H ABG pO2 74.0 L ABG HCO3 33.8 H ABG O2 Saturation ABG Base Excess 9.1 H ABG Hemoglobin 8.7 L Oxyhemoglobin 94.7 L Sodium 146 H Potassium 2.9 L* Chloride Carbon Dioxide BUN 25 H Creatinine Glucose 213 H POC Glucose Lactic Acid Calcium Ionized Calcium Phosphorus 1.00 L Magnesium Total Bilirubin AST ALT Alkaline Phosphatase Ammonia Total Creatine Kinase CK-MB (CK-2) CK-MB (CK-2) Rel Index Total Protein Albumin Urine WBC (Auto) Vancomycin Trough Salicylates Acetaminophen Plasma/Serum Alcohol Crossmatch 11/27/19 11/27/19 11/27/19 05:37 12:20 15:46 WBC RBC Hgb Hct MCH RDW Plt Count Lymph % (Auto) Williams % (Auto) Williams # Baso # Seg Neutrophils % Seg Neuts % (Manual) Lymphocytes % (Manual) Monocytes % (Manual) Seg Neutrophils # Seg Neutrophils # Man Lymphocytes # (Manual) Monocytes # (Manual) Eosinophils # (Manual) Basophils # (Manual) PT INR APTT ABG pH ABG pO2 ABG HCO3 ABG O2 Saturation ABG Base Excess ABG Hemoglobin Oxyhemoglobin Sodium 146 H Potassium 3.5 L D Chloride Carbon Dioxide BUN 24 H Creatinine 0.6 L Glucose 187 H POC Glucose 117 H 220 H Lactic Acid Calcium Ionized Calcium Phosphorus Magnesium Total Bilirubin AST ALT Alkaline Phosphatase Ammonia Total Creatine Kinase CK-MB (CK-2) CK-MB (CK-2) Rel Index Total Protein Albumin Urine WBC (Auto) Vancomycin Trough Salicylates Acetaminophen Plasma/Serum Alcohol Crossmatch 11/27/19 11/28/19 11/28/19 17:28 05:00 05:02 WBC RBC Hgb Hct MCH RDW Plt Count Lymph % (Auto) Williams % (Auto) Williams # Baso # Seg Neutrophils % Seg Neuts % (Manual) Lymphocytes % (Manual) Monocytes % (Manual) Seg Neutrophils # Seg Neutrophils # Man Lymphocytes # (Manual) Monocytes # (Manual) Eosinophils # (Manual) Basophils # (Manual) PT INR APTT ABG pH ABG pO2 72.4 L ABG HCO3 33.6 H ABG O2 Saturation 94.1 L ABG Base Excess 7.3 H ABG Hemoglobin Oxyhemoglobin 91.8 L Sodium 146 H Potassium 3.3 L Chloride Carbon Dioxide BUN 25 H Creatinine 0.6 L Glucose 176 H POC Glucose 198 H Lactic Acid Calcium Ionized Calcium Phosphorus Magnesium Total Bilirubin AST ALT Alkaline Phosphatase Ammonia Total Creatine Kinase CK-MB (CK-2) CK-MB (CK-2) Rel Index Total Protein Albumin Urine WBC (Auto) Vancomycin Trough Salicylates Acetaminophen Plasma/Serum Alcohol Crossmatch 11/28/19 11/28/19 11/29/19 05:02 18:55 10:43 WBC 15.2 H 19.0 H RBC 3.06 L 3.01 L Hgb 8.3 L 8.3 L Hct 27.0 L 26.4 L MCH 27 L RDW 19.0 H 19.7 H Plt Count 479 H 611 H Lymph % (Auto) Williams % (Auto) Williams # Baso # Seg Neutrophils % Seg Neuts % (Manual) 92.0 H Lymphocytes % (Manual) 2.0 L Monocytes % (Manual) Seg Neutrophils # Seg Neutrophils # Man 14.0 H Lymphocytes # (Manual) 0.3 L Monocytes # (Manual) Eosinophils # (Manual) Basophils # (Manual) PT INR APTT ABG pH ABG pO2 ABG HCO3 ABG O2 Saturation ABG Base Excess ABG Hemoglobin Oxyhemoglobin Sodium Potassium Chloride Carbon Dioxide BUN Creatinine Glucose POC Glucose 138 H Lactic Acid Calcium Ionized Calcium Phosphorus Magnesium Total Bilirubin AST ALT Alkaline Phosphatase Ammonia Total Creatine Kinase CK-MB (CK-2) CK-MB (CK-2) Rel Index Total Protein Albumin Urine WBC (Auto) Vancomycin Trough Salicylates Acetaminophen Plasma/Serum Alcohol Crossmatch 11/29/19 11/29/19 11/29/19 10:43 12:27 19:25 WBC RBC Hgb Hct MCH RDW Plt Count Lymph % (Auto) Williams % (Auto) Williams # Baso # Seg Neutrophils % Seg Neuts % (Manual) Lymphocytes % (Manual) Monocytes % (Manual) Seg Neutrophils # Seg Neutrophils # Man Lymphocytes # (Manual) Monocytes # (Manual) Eosinophils # (Manual) Basophils # (Manual) PT INR APTT ABG pH ABG pO2 ABG HCO3 ABG O2 Saturation ABG Base Excess ABG Hemoglobin Oxyhemoglobin Sodium Potassium 2.8 L* Chloride Carbon Dioxide BUN 20 H Creatinine 0.5 L Glucose 121 H POC Glucose 128 H 120 H Lactic Acid Calcium Ionized Calcium Phosphorus Magnesium Total Bilirubin AST ALT Alkaline Phosphatase Ammonia Total Creatine Kinase CK-MB (CK-2) CK-MB (CK-2) Rel Index Total Protein Albumin Urine WBC (Auto) Vancomycin Trough Salicylates Acetaminophen Plasma/Serum Alcohol Crossmatch 11/29/19 11/30/19 11/30/19 23:46 04:10 05:02 WBC RBC Hgb Hct MCH RDW Plt Count Lymph % (Auto) Williams % (Auto) Williams # Baso # Seg Neutrophils % Seg Neuts % (Manual) Lymphocytes % (Manual) Monocytes % (Manual) Seg Neutrophils # Seg Neutrophils # Man Lymphocytes # (Manual) Monocytes # (Manual) Eosinophils # (Manual) Basophils # (Manual) PT INR APTT ABG pH ABG pO2 76.3 L ABG HCO3 32.5 H ABG O2 Saturation ABG Base Excess 6.9 H ABG Hemoglobin 8.0 L Oxyhemoglobin 92.6 L Sodium Potassium Chloride Carbon Dioxide BUN Creatinine Glucose POC Glucose 116 H 128 H Lactic Acid Calcium Ionized Calcium Phosphorus Magnesium Total Bilirubin AST ALT Alkaline Phosphatase Ammonia Total Creatine Kinase CK-MB (CK-2) CK-MB (CK-2) Rel Index Total Protein Albumin Urine WBC (Auto) Vancomycin Trough Salicylates Acetaminophen Plasma/Serum Alcohol Crossmatch 11/30/19 11/30/19 11/30/19 05:25 05:25 12:59 WBC 18.4 H RBC 3.10 L Hgb 8.5 L Hct 27.5 L MCH 27 L RDW 20.9 H Plt Count 691 H Lymph % (Auto) 7.1 L Williams % (Auto) 7.7 H Williams # 1.4 H Baso # Seg Neutrophils % 83.4 H Seg Neuts % (Manual) Lymphocytes % (Manual) Monocytes % (Manual) Seg Neutrophils # 15.4 H Seg Neutrophils # Man Lymphocytes # (Manual) Monocytes # (Manual) Eosinophils # (Manual) Basophils # (Manual) PT INR APTT ABG pH ABG pO2 ABG HCO3 ABG O2 Saturation ABG Base Excess ABG Hemoglobin Oxyhemoglobin Sodium 146 H Potassium Chloride 107.2 H Carbon Dioxide BUN Creatinine 0.5 L Glucose 132 H POC Glucose 124 H Lactic Acid Calcium Ionized Calcium Phosphorus Magnesium Total Bilirubin AST 246 H ALT 274 H Alkaline Phosphatase 203 H Ammonia Total Creatine Kinase CK-MB (CK-2) CK-MB (CK-2) Rel Index Total Protein 5.4 L Albumin 2.9 L Urine WBC (Auto) Vancomycin Trough Salicylates Acetaminophen Plasma/Serum Alcohol Crossmatch 11/30/19 12/01/19 12/01/19 17:53 00:05 05:10 WBC RBC Hgb Hct MCH RDW Plt Count Lymph % (Auto) Williams % (Auto) Williams # Baso # Seg Neutrophils % Seg Neuts % (Manual) Lymphocytes % (Manual) Monocytes % (Manual) Seg Neutrophils # Seg Neutrophils # Man Lymphocytes # (Manual) Monocytes # (Manual) Eosinophils # (Manual) Basophils # (Manual) PT INR APTT ABG pH ABG pO2 ABG HCO3 ABG O2 Saturation ABG Base Excess ABG Hemoglobin Oxyhemoglobin Sodium Potassium Chloride Carbon Dioxide BUN Creatinine Glucose POC Glucose 113 H 143 H 145 H Lactic Acid Calcium Ionized Calcium Phosphorus Magnesium Total Bilirubin AST ALT Alkaline Phosphatase Ammonia Total Creatine Kinase CK-MB (CK-2) CK-MB (CK-2) Rel Index Total Protein Albumin Urine WBC (Auto) Vancomycin Trough Salicylates Acetaminophen Plasma/Serum Alcohol Crossmatch 12/01/19 12/01/19 12/01/19 05:33 08:23 08:23 WBC 22.7 H RBC 2.88 L Hgb 7.9 L Hct 25.2 L MCH 27 L RDW 21.0 H Plt Count 732 H Lymph % (Auto) Williams % (Auto) Williams # Baso # Seg Neutrophils % Seg Neuts % (Manual) 91.0 H Lymphocytes % (Manual) 3.0 L Monocytes % (Manual) Seg Neutrophils # Seg Neutrophils # Man 20.7 H Lymphocytes # (Manual) 0.7 L Monocytes # (Manual) 1.1 H Eosinophils # (Manual) Basophils # (Manual) PT INR APTT ABG pH ABG pO2 68.6 L ABG HCO3 34.1 H ABG O2 Saturation ABG Base Excess 9.0 H ABG Hemoglobin 6.5 L Oxyhemoglobin 94.7 L Sodium Potassium Chloride Carbon Dioxide BUN Creatinine 0.5 L Glucose 125 H POC Glucose Lactic Acid Calcium Ionized Calcium Phosphorus Magnesium Total Bilirubin AST ALT Alkaline Phosphatase Ammonia Total Creatine Kinase CK-MB (CK-2) CK-MB (CK-2) Rel Index Total Protein Albumin Urine WBC (Auto) Vancomycin Trough Salicylates Acetaminophen Plasma/Serum Alcohol Crossmatch 12/01/19 12/01/19 12/01/19 13:21 17:54 20:59 WBC RBC Hgb Hct MCH RDW Plt Count Lymph % (Auto) Williams % (Auto) Williams # Baso # Seg Neutrophils % Seg Neuts % (Manual) Lymphocytes % (Manual) Monocytes % (Manual) Seg Neutrophils # Seg Neutrophils # Man Lymphocytes # (Manual) Monocytes # (Manual) Eosinophils # (Manual) Basophils # (Manual) PT INR APTT ABG pH ABG pO2 78.3 L ABG HCO3 33.8 H ABG O2 Saturation 94.9 L ABG Base Excess 7.9 H ABG Hemoglobin 11.5 L Oxyhemoglobin 92.3 L Sodium Potassium Chloride Carbon Dioxide BUN Creatinine Glucose POC Glucose 111 H 115 H Lactic Acid Calcium Ionized Calcium Phosphorus Magnesium Total Bilirubin AST ALT Alkaline Phosphatase Ammonia Total Creatine Kinase CK-MB (CK-2) CK-MB (CK-2) Rel Index Total Protein Albumin Urine WBC (Auto) Vancomycin Trough Salicylates Acetaminophen Plasma/Serum Alcohol Crossmatch 12/02/19 12/03/19 12/04/19 12:55 20:00 04:26 WBC 15.2 H RBC 2.69 L Hgb 7.4 L Hct 23.6 L MCH 27 L RDW 19.9 H Plt Count 838 H Lymph % (Auto) Williams % (Auto) Williams # Baso # Seg Neutrophils % Seg Neuts % (Manual) Lymphocytes % (Manual) Monocytes % (Manual) Seg Neutrophils # Seg Neutrophils # Man Lymphocytes # (Manual) Monocytes # (Manual) Eosinophils # (Manual) Basophils # (Manual) PT INR APTT ABG pH ABG pO2 68.3 L ABG HCO3 33.5 H ABG O2 Saturation 93.5 L ABG Base Excess 8.4 H ABG Hemoglobin 7.3 L Oxyhemoglobin 90.9 L Sodium Potassium Chloride Carbon Dioxide BUN Creatinine Glucose POC Glucose 107 H Lactic Acid Calcium Ionized Calcium Phosphorus Magnesium Total Bilirubin AST ALT Alkaline Phosphatase Ammonia Total Creatine Kinase CK-MB (CK-2) CK-MB (CK-2) Rel Index Total Protein Albumin Urine WBC (Auto) Vancomycin Trough Salicylates Acetaminophen Plasma/Serum Alcohol Crossmatch 12/04/19 12/04/19 12/04/19 04:26 07:45 12:02 WBC 15.9 H RBC 2.88 L Hgb 7.9 L Hct 25.1 L MCH RDW 20.4 H Plt Count 839 H Lymph % (Auto) 11.3 L Williams % (Auto) 15.2 H Williams # 2.4 H Baso # Seg Neutrophils % 72.4 H Seg Neuts % (Manual) Lymphocytes % (Manual) Monocytes % (Manual) Seg Neutrophils # 11.5 H Seg Neutrophils # Man Lymphocytes # (Manual) Monocytes # (Manual) Eosinophils # (Manual) Basophils # (Manual) PT INR APTT ABG pH ABG pO2 ABG HCO3 ABG O2 Saturation ABG Base Excess ABG Hemoglobin Oxyhemoglobin Sodium Potassium Chloride 96.5 L Carbon Dioxide BUN 21 H Creatinine 0.6 L Glucose 107 H POC Glucose 138 H Lactic Acid Calcium Ionized Calcium Phosphorus Magnesium Total Bilirubin AST ALT Alkaline Phosphatase Ammonia Total Creatine Kinase CK-MB (CK-2) CK-MB (CK-2) Rel Index Total Protein Albumin Urine WBC (Auto) Vancomycin Trough Salicylates Acetaminophen Plasma/Serum Alcohol Crossmatch 12/04/19 12/05/19 12/05/19 18:16 11:55 18:36 WBC RBC Hgb Hct MCH RDW Plt Count Lymph % (Auto) Williams % (Auto) Williams # Baso # Seg Neutrophils % Seg Neuts % (Manual) Lymphocytes % (Manual) Monocytes % (Manual) Seg Neutrophils # Seg Neutrophils # Man Lymphocytes # (Manual) Monocytes # (Manual) Eosinophils # (Manual) Basophils # (Manual) PT INR APTT ABG pH ABG pO2 ABG HCO3 ABG O2 Saturation ABG Base Excess ABG Hemoglobin Oxyhemoglobin Sodium Potassium Chloride Carbon Dioxide BUN Creatinine Glucose POC Glucose 135 H 125 H 135 H Lactic Acid Calcium Ionized Calcium Phosphorus Magnesium Total Bilirubin AST ALT Alkaline Phosphatase Ammonia Total Creatine Kinase CK-MB (CK-2) CK-MB (CK-2) Rel Index Total Protein Albumin Urine WBC (Auto) Vancomycin Trough Salicylates Acetaminophen Plasma/Serum Alcohol Crossmatch 12/05/19 12/06/19 12/06/19 23:30 04:14 05:43 WBC RBC Hgb Hct MCH RDW Plt Count Lymph % (Auto) Williams % (Auto) Williams # Baso # Seg Neutrophils % Seg Neuts % (Manual) Lymphocytes % (Manual) Monocytes % (Manual) Seg Neutrophils # Seg Neutrophils # Man Lymphocytes # (Manual) Monocytes # (Manual) Eosinophils # (Manual) Basophils # (Manual) PT INR APTT ABG pH ABG pO2 ABG HCO3 ABG O2 Saturation ABG Base Excess ABG Hemoglobin Oxyhemoglobin Sodium Potassium 5.6 H Chloride 95.0 L Carbon Dioxide BUN 48 H Creatinine 1.3 H D Glucose POC Glucose 126 H 121 H Lactic Acid Calcium Ionized Calcium Phosphorus Magnesium Total Bilirubin AST 89 H ALT 98 H Alkaline Phosphatase 476 H Ammonia Total Creatine Kinase CK-MB (CK-2) CK-MB (CK-2) Rel Index Total Protein Albumin 2.8 L Urine WBC (Auto) Vancomycin Trough Salicylates Acetaminophen Plasma/Serum Alcohol Crossmatch 12/06/19 12/06/19 12/07/19 10:39 14:34 00:19 WBC 17.3 H RBC 2.60 L Hgb 7.1 L Hct 22.7 L MCH 27 L RDW 20.1 H Plt Count 832 H Lymph % (Auto) Williams % (Auto) Williams # Baso # Seg Neutrophils % Seg Neuts % (Manual) Lymphocytes % (Manual) Monocytes % (Manual) Seg Neutrophils # Seg Neutrophils # Man Lymphocytes # (Manual) Monocytes # (Manual) Eosinophils # (Manual) Basophils # (Manual) PT INR APTT ABG pH ABG pO2 ABG HCO3 ABG O2 Saturation ABG Base Excess ABG Hemoglobin Oxyhemoglobin Sodium Potassium Chloride Carbon Dioxide BUN Creatinine Glucose POC Glucose 128 H 136 H Lactic Acid Calcium Ionized Calcium Phosphorus Magnesium Total Bilirubin AST ALT Alkaline Phosphatase Ammonia Total Creatine Kinase CK-MB (CK-2) CK-MB (CK-2) Rel Index Total Protein Albumin Urine WBC (Auto) Vancomycin Trough Salicylates Acetaminophen Plasma/Serum Alcohol Crossmatch 12/07/19 12/07/19 12/07/19 03:44 03:44 05:53 WBC 16.2 H RBC 2.56 L Hgb 7.1 L Hct 22.3 L MCH RDW 19.4 H Plt Count 782 H Lymph % (Auto) Williams % (Auto) Williams # Baso # Seg Neutrophils % Seg Neuts % (Manual) Lymphocytes % (Manual) Monocytes % (Manual) Seg Neutrophils # Seg Neutrophils # Man Lymphocytes # (Manual) Monocytes # (Manual) Eosinophils # (Manual) Basophils # (Manual) PT INR APTT ABG pH ABG pO2 ABG HCO3 ABG O2 Saturation ABG Base Excess ABG Hemoglobin Oxyhemoglobin Sodium Potassium Chloride 95.6 L Carbon Dioxide BUN 56 H Creatinine 1.4 H Glucose 120 H POC Glucose 128 H Lactic Acid Calcium 10.3 H Ionized Calcium Phosphorus Magnesium Total Bilirubin AST ALT Alkaline Phosphatase Ammonia Total Creatine Kinase CK-MB (CK-2) CK-MB (CK-2) Rel Index Total Protein Albumin Urine WBC (Auto) Vancomycin Trough Salicylates Acetaminophen Plasma/Serum Alcohol Crossmatch 12/07/19 12/07/19 12/08/19 12:54 23:47 00:20 WBC RBC Hgb Hct MCH RDW Plt Count Lymph % (Auto) Williams % (Auto) Williams # Baso # Seg Neutrophils % Seg Neuts % (Manual) Lymphocytes % (Manual) Monocytes % (Manual) Seg Neutrophils # Seg Neutrophils # Man Lymphocytes # (Manual) Monocytes # (Manual) Eosinophils # (Manual) Basophils # (Manual) PT INR APTT ABG pH ABG pO2 ABG HCO3 ABG O2 Saturation ABG Base Excess ABG Hemoglobin Oxyhemoglobin Sodium Potassium Chloride Carbon Dioxide BUN Creatinine Glucose POC Glucose 128 H 130 H 124 H Lactic Acid Calcium Ionized Calcium Phosphorus Magnesium Total Bilirubin AST ALT Alkaline Phosphatase Ammonia Total Creatine Kinase CK-MB (CK-2) CK-MB (CK-2) Rel Index Total Protein Albumin Urine WBC (Auto) Vancomycin Trough Salicylates Acetaminophen Plasma/Serum Alcohol Crossmatch 12/08/19 12/08/19 12/08/19 06:38 12:04 18:26 WBC RBC Hgb Hct MCH RDW Plt Count Lymph % (Auto) Williams % (Auto) Williams # Baso # Seg Neutrophils % Seg Neuts % (Manual) Lymphocytes % (Manual) Monocytes % (Manual) Seg Neutrophils # Seg Neutrophils # Man Lymphocytes # (Manual) Monocytes # (Manual) Eosinophils # (Manual) Basophils # (Manual) PT INR APTT ABG pH ABG pO2 ABG HCO3 ABG O2 Saturation ABG Base Excess ABG Hemoglobin Oxyhemoglobin Sodium Potassium Chloride Carbon Dioxide BUN Creatinine Glucose POC Glucose 137 H 129 H 150 H Lactic Acid Calcium Ionized Calcium Phosphorus Magnesium Total Bilirubin AST ALT Alkaline Phosphatase Ammonia Total Creatine Kinase CK-MB (CK-2) CK-MB (CK-2) Rel Index Total Protein Albumin Urine WBC (Auto) Vancomycin Trough Salicylates Acetaminophen Plasma/Serum Alcohol Crossmatch 12/09/19 12/09/19 12/09/19 00:56 05:34 06:13 WBC RBC Hgb Hct MCH RDW Plt Count Lymph % (Auto) Williams % (Auto) Williams # Baso # Seg Neutrophils % Seg Neuts % (Manual) Lymphocytes % (Manual) Monocytes % (Manual) Seg Neutrophils # Seg Neutrophils # Man Lymphocytes # (Manual) Monocytes # (Manual) Eosinophils # (Manual) Basophils # (Manual) PT INR APTT ABG pH ABG pO2 ABG HCO3 ABG O2 Saturation ABG Base Excess ABG Hemoglobin Oxyhemoglobin Sodium 146 H Potassium Chloride Carbon Dioxide BUN 66 H Creatinine 1.9 H Glucose 116 H POC Glucose 130 H 130 H Lactic Acid Calcium Ionized Calcium Phosphorus Magnesium Total Bilirubin AST ALT Alkaline Phosphatase Ammonia Total Creatine Kinase CK-MB (CK-2) CK-MB (CK-2) Rel Index Total Protein Albumin Urine WBC (Auto) Vancomycin Trough Salicylates Acetaminophen Plasma/Serum Alcohol Crossmatch 12/09/19 12/09/19 12/10/19 11:52 17:50 00:14 WBC RBC Hgb Hct MCH RDW Plt Count Lymph % (Auto) Williams % (Auto) Williams # Baso # Seg Neutrophils % Seg Neuts % (Manual) Lymphocytes % (Manual) Monocytes % (Manual) Seg Neutrophils # Seg Neutrophils # Man Lymphocytes # (Manual) Monocytes # (Manual) Eosinophils # (Manual) Basophils # (Manual) PT INR APTT ABG pH ABG pO2 ABG HCO3 ABG O2 Saturation ABG Base Excess ABG Hemoglobin Oxyhemoglobin Sodium Potassium Chloride Carbon Dioxide BUN Creatinine Glucose POC Glucose 135 H 120 H 116 H Lactic Acid Calcium Ionized Calcium Phosphorus Magnesium Total Bilirubin AST ALT Alkaline Phosphatase Ammonia Total Creatine Kinase CK-MB (CK-2) CK-MB (CK-2) Rel Index Total Protein Albumin Urine WBC (Auto) Vancomycin Trough Salicylates Acetaminophen Plasma/Serum Alcohol Crossmatch 12/10/19 12/10/19 12/10/19 05:38 11:38 17:34 WBC RBC Hgb Hct MCH RDW Plt Count Lymph % (Auto) Williams % (Auto) Williams # Baso # Seg Neutrophils % Seg Neuts % (Manual) Lymphocytes % (Manual) Monocytes % (Manual) Seg Neutrophils # Seg Neutrophils # Man Lymphocytes # (Manual) Monocytes # (Manual) Eosinophils # (Manual) Basophils # (Manual) PT INR APTT ABG pH ABG pO2 ABG HCO3 ABG O2 Saturation ABG Base Excess ABG Hemoglobin Oxyhemoglobin Sodium Potassium Chloride Carbon Dioxide BUN Creatinine Glucose POC Glucose 115 H 112 H 130 H Lactic Acid Calcium Ionized Calcium Phosphorus Magnesium Total Bilirubin AST ALT Alkaline Phosphatase Ammonia Total Creatine Kinase CK-MB (CK-2) CK-MB (CK-2) Rel Index Total Protein Albumin Urine WBC (Auto) Vancomycin Trough Salicylates Acetaminophen Plasma/Serum Alcohol Crossmatch 12/11/19 12/11/19 12/11/19 00:20 05:31 12:22 WBC RBC Hgb Hct MCH RDW Plt Count Lymph % (Auto) Williams % (Auto) Williams # Baso # Seg Neutrophils % Seg Neuts % (Manual) Lymphocytes % (Manual) Monocytes % (Manual) Seg Neutrophils # Seg Neutrophils # Man Lymphocytes # (Manual) Monocytes # (Manual) Eosinophils # (Manual) Basophils # (Manual) PT INR APTT ABG pH ABG pO2 ABG HCO3 ABG O2 Saturation ABG Base Excess ABG Hemoglobin Oxyhemoglobin Sodium Potassium Chloride Carbon Dioxide BUN Creatinine Glucose POC Glucose 124 H 132 H 128 H Lactic Acid Calcium Ionized Calcium Phosphorus Magnesium Total Bilirubin AST ALT Alkaline Phosphatase Ammonia Total Creatine Kinase CK-MB (CK-2) CK-MB (CK-2) Rel Index Total Protein Albumin Urine WBC (Auto) Vancomycin Trough Salicylates Acetaminophen Plasma/Serum Alcohol Crossmatch 12/11/19 12/11/19 12/12/19 18:04 23:42 03:51 WBC RBC Hgb Hct MCH RDW Plt Count Lymph % (Auto) Williams % (Auto) Williams # Baso # Seg Neutrophils % Seg Neuts % (Manual) Lymphocytes % (Manual) Monocytes % (Manual) Seg Neutrophils # Seg Neutrophils # Man Lymphocytes # (Manual) Monocytes # (Manual) Eosinophils # (Manual) Basophils # (Manual) PT INR APTT ABG pH ABG pO2 ABG HCO3 ABG O2 Saturation ABG Base Excess ABG Hemoglobin Oxyhemoglobin Sodium 149 H Potassium Chloride Carbon Dioxide 20 L D BUN 77 H Creatinine 2.8 H Glucose POC Glucose 133 H 154 H Lactic Acid Calcium Ionized Calcium Phosphorus Magnesium Total Bilirubin AST ALT Alkaline Phosphatase Ammonia Total Creatine Kinase CK-MB (CK-2) CK-MB (CK-2) Rel Index Total Protein Albumin Urine WBC (Auto) Vancomycin Trough Salicylates Acetaminophen Plasma/Serum Alcohol Crossmatch 12/12/19 12/12/19 12/12/19 05:18 05:26 10:30 WBC 18.0 H RBC 2.51 L Hgb 6.8 L Hct 22.0 L MCH 27 L RDW 19.9 H Plt Count 582 H Lymph % (Auto) Williams % (Auto) Williams # Baso # Seg Neutrophils % Seg Neuts % (Manual) Lymphocytes % (Manual) Monocytes % (Manual) Seg Neutrophils # Seg Neutrophils # Man Lymphocytes # (Manual) Monocytes # (Manual) Eosinophils # (Manual) Basophils # (Manual) PT INR APTT ABG pH ABG pO2 ABG HCO3 ABG O2 Saturation ABG Base Excess ABG Hemoglobin Oxyhemoglobin Sodium Potassium Chloride Carbon Dioxide BUN Creatinine Glucose POC Glucose 135 H Lactic Acid Calcium Ionized Calcium Phosphorus Magnesium Total Bilirubin AST ALT Alkaline Phosphatase Ammonia Total Creatine Kinase CK-MB (CK-2) CK-MB (CK-2) Rel Index Total Protein Albumin Urine WBC (Auto) Vancomycin Trough Salicylates Acetaminophen Plasma/Serum Alcohol Crossmatch See Detail 12/12/19 12/12/19 12/12/19 11:44 18:10 23:21 WBC RBC Hgb Hct MCH RDW Plt Count Lymph % (Auto) Williams % (Auto) Williams # Baso # Seg Neutrophils % Seg Neuts % (Manual) Lymphocytes % (Manual) Monocytes % (Manual) Seg Neutrophils # Seg Neutrophils # Man Lymphocytes # (Manual) Monocytes # (Manual) Eosinophils # (Manual) Basophils # (Manual) PT INR APTT ABG pH ABG pO2 ABG HCO3 ABG O2 Saturation ABG Base Excess ABG Hemoglobin Oxyhemoglobin Sodium Potassium Chloride Carbon Dioxide BUN Creatinine Glucose POC Glucose 108 H 107 H 126 H Lactic Acid Calcium Ionized Calcium Phosphorus Magnesium Total Bilirubin AST ALT Alkaline Phosphatase Ammonia Total Creatine Kinase CK-MB (CK-2) CK-MB (CK-2) Rel Index Total Protein Albumin Urine WBC (Auto) Vancomycin Trough Salicylates Acetaminophen Plasma/Serum Alcohol Crossmatch 12/13/19 12/13/19 12/13/19 05:41 07:48 07:48 WBC 38.3 H RBC 2.37 L Hgb 6.3 L Hct 20.9 L MCH 27 L RDW 20.2 H Plt Count 546 H Lymph % (Auto) Williams % (Auto) Williams # Baso # Seg Neutrophils % Seg Neuts % (Manual) 93.0 H Lymphocytes % (Manual) 1.0 L Monocytes % (Manual) Seg Neutrophils # Seg Neutrophils # Man 35.6 H Lymphocytes # (Manual) 0.4 L Monocytes # (Manual) Eosinophils # (Manual) Basophils # (Manual) 0.4 H PT INR APTT ABG pH ABG pO2 ABG HCO3 ABG O2 Saturation ABG Base Excess ABG Hemoglobin Oxyhemoglobin Sodium 152 H Potassium 3.1 L D Chloride 111.9 H Carbon Dioxide 21 L BUN 53 H Creatinine 1.9 H Glucose 141 H POC Glucose 128 H Lactic Acid Calcium Ionized Calcium Phosphorus Magnesium Total Bilirubin AST ALT Alkaline Phosphatase 316 H Ammonia Total Creatine Kinase CK-MB (CK-2) CK-MB (CK-2) Rel Index Total Protein Albumin 2.4 L Urine WBC (Auto) Vancomycin Trough Salicylates Acetaminophen Plasma/Serum Alcohol Crossmatch 12/13/19 12/13/19 12/14/19 18:17 23:19 05:36 WBC RBC Hgb Hct MCH RDW Plt Count Lymph % (Auto) Williams % (Auto) Williams # Baso # Seg Neutrophils % Seg Neuts % (Manual) Lymphocytes % (Manual) Monocytes % (Manual) Seg Neutrophils # Seg Neutrophils # Man Lymphocytes # (Manual) Monocytes # (Manual) Eosinophils # (Manual) Basophils # (Manual) PT INR APTT ABG pH ABG pO2 ABG HCO3 ABG O2 Saturation ABG Base Excess ABG Hemoglobin Oxyhemoglobin Sodium Potassium Chloride Carbon Dioxide BUN Creatinine Glucose POC Glucose 141 H 158 H 182 H Lactic Acid Calcium Ionized Calcium Phosphorus Magnesium Total Bilirubin AST ALT Alkaline Phosphatase Ammonia Total Creatine Kinase CK-MB (CK-2) CK-MB (CK-2) Rel Index Total Protein Albumin Urine WBC (Auto) Vancomycin Trough Salicylates Acetaminophen Plasma/Serum Alcohol Crossmatch 12/14/19 12/14/19 12/14/19 08:48 08:48 10:31 WBC 33.3 H RBC 2.70 L Hgb 7.9 L 8.0 L Hct 25.3 L 24.0 L MCH RDW 19.2 H Plt Count 476 H Lymph % (Auto) Williams % (Auto) Williams # Baso # Seg Neutrophils % Seg Neuts % (Manual) Lymphocytes % (Manual) Monocytes % (Manual) Seg Neutrophils # Seg Neutrophils # Man Lymphocytes # (Manual) Monocytes # (Manual) Eosinophils # (Manual) Basophils # (Manual) PT INR APTT ABG pH ABG pO2 ABG HCO3 ABG O2 Saturation ABG Base Excess ABG Hemoglobin Oxyhemoglobin Sodium 153 H Potassium 2.5 L* Chloride 114.9 H Carbon Dioxide 20 L BUN 38 H Creatinine 1.4 H Glucose 177 H POC Glucose Lactic Acid Calcium Ionized Calcium Phosphorus Magnesium Total Bilirubin AST ALT Alkaline Phosphatase Ammonia Total Creatine Kinase CK-MB (CK-2) CK-MB (CK-2) Rel Index Total Protein Albumin Urine WBC (Auto) Vancomycin Trough Salicylates Acetaminophen Plasma/Serum Alcohol Crossmatch 12/14/19 12/14/19 12/14/19 12:57 16:15 17:50 WBC RBC Hgb Hct MCH RDW Plt Count Lymph % (Auto) Williams % (Auto) Williams # Baso # Seg Neutrophils % Seg Neuts % (Manual) Lymphocytes % (Manual) Monocytes % (Manual) Seg Neutrophils # Seg Neutrophils # Man Lymphocytes # (Manual) Monocytes # (Manual) Eosinophils # (Manual) Basophils # (Manual) PT INR APTT ABG pH ABG pO2 73.6 L ABG HCO3 ABG O2 Saturation ABG Base Excess ABG Hemoglobin 7.6 L Oxyhemoglobin 94.0 L Sodium Potassium Chloride Carbon Dioxide BUN Creatinine Glucose POC Glucose 174 H 150 H Lactic Acid Calcium Ionized Calcium Phosphorus Magnesium Total Bilirubin AST ALT Alkaline Phosphatase Ammonia Total Creatine Kinase CK-MB (CK-2) CK-MB (CK-2) Rel Index Total Protein Albumin Urine WBC (Auto) Vancomycin Trough Salicylates Acetaminophen Plasma/Serum Alcohol Crossmatch 12/15/19 12/15/19 12/15/19 00:28 05:27 07:23 WBC 30.0 H RBC 3.11 L Hgb 8.6 L Hct 27.7 L MCH RDW 20.0 H Plt Count 473 H Lymph % (Auto) Williams % (Auto) Williams # Baso # Seg Neutrophils % Seg Neuts % (Manual) Lymphocytes % (Manual) Monocytes % (Manual) Seg Neutrophils # Seg Neutrophils # Man Lymphocytes # (Manual) Monocytes # (Manual) Eosinophils # (Manual) Basophils # (Manual) PT INR APTT ABG pH ABG pO2 ABG HCO3 ABG O2 Saturation ABG Base Excess ABG Hemoglobin Oxyhemoglobin Sodium Potassium Chloride Carbon Dioxide BUN Creatinine Glucose POC Glucose 167 H 148 H Lactic Acid Calcium Ionized Calcium Phosphorus Magnesium Total Bilirubin AST ALT Alkaline Phosphatase Ammonia Total Creatine Kinase CK-MB (CK-2) CK-MB (CK-2) Rel Index Total Protein Albumin Urine WBC (Auto) Vancomycin Trough Salicylates Acetaminophen Plasma/Serum Alcohol Crossmatch 12/15/19 12/15/19 12/15/19 07:23 12:21 17:41 WBC RBC Hgb Hct MCH RDW Plt Count Lymph % (Auto) Williams % (Auto) Williams # Baso # Seg Neutrophils % Seg Neuts % (Manual) Lymphocytes % (Manual) Monocytes % (Manual) Seg Neutrophils # Seg Neutrophils # Man Lymphocytes # (Manual) Monocytes # (Manual) Eosinophils # (Manual) Basophils # (Manual) PT INR APTT ABG pH ABG pO2 ABG HCO3 ABG O2 Saturation ABG Base Excess ABG Hemoglobin Oxyhemoglobin Sodium 147 H Potassium 3.5 L D Chloride 111.2 H Carbon Dioxide 19 L BUN 29 H Creatinine Glucose 126 H POC Glucose 154 H 144 H Lactic Acid Calcium Ionized Calcium Phosphorus Magnesium Total Bilirubin AST ALT Alkaline Phosphatase Ammonia Total Creatine Kinase CK-MB (CK-2) CK-MB (CK-2) Rel Index Total Protein Albumin Urine WBC (Auto) Vancomycin Trough Salicylates Acetaminophen Plasma/Serum Alcohol Crossmatch 12/16/19 12/16/19 12/16/19 00:22 05:30 05:44 WBC 30.8 H RBC 2.58 L Hgb 7.1 L Hct 22.7 L MCH RDW 19.6 H Plt Count 451 H Lymph % (Auto) Williams % (Auto) Williams # Baso # Seg Neutrophils % Seg Neuts % (Manual) Lymphocytes % (Manual) Monocytes % (Manual) Seg Neutrophils # Seg Neutrophils # Man Lymphocytes # (Manual) Monocytes # (Manual) Eosinophils # (Manual) Basophils # (Manual) PT INR APTT ABG pH ABG pO2 ABG HCO3 ABG O2 Saturation ABG Base Excess ABG Hemoglobin Oxyhemoglobin Sodium Potassium Chloride Carbon Dioxide BUN Creatinine Glucose POC Glucose 139 H 126 H Lactic Acid Calcium Ionized Calcium Phosphorus Magnesium Total Bilirubin AST ALT Alkaline Phosphatase Ammonia Total Creatine Kinase CK-MB (CK-2) CK-MB (CK-2) Rel Index Total Protein Albumin Urine WBC (Auto) Vancomycin Trough Salicylates Acetaminophen Plasma/Serum Alcohol Crossmatch 12/16/19 12/16/19 12/16/19 05:44 11:48 17:37 WBC RBC Hgb Hct MCH RDW Plt Count Lymph % (Auto) Williams % (Auto) Williams # Baso # Seg Neutrophils % Seg Neuts % (Manual) Lymphocytes % (Manual) Monocytes % (Manual) Seg Neutrophils # Seg Neutrophils # Man Lymphocytes # (Manual) Monocytes # (Manual) Eosinophils # (Manual) Basophils # (Manual) PT INR APTT ABG pH ABG pO2 ABG HCO3 ABG O2 Saturation ABG Base Excess ABG Hemoglobin Oxyhemoglobin Sodium Potassium 3.4 L Chloride 109.2 H Carbon Dioxide 19 L BUN 27 H Creatinine Glucose 124 H POC Glucose 125 H 148 H Lactic Acid Calcium Ionized Calcium Phosphorus Magnesium Total Bilirubin AST ALT Alkaline Phosphatase Ammonia Total Creatine Kinase CK-MB (CK-2) CK-MB (CK-2) Rel Index Total Protein Albumin Urine WBC (Auto) Vancomycin Trough Salicylates Acetaminophen Plasma/Serum Alcohol Crossmatch 12/16/19 12/17/19 12/17/19 23:43 05:28 12:47 WBC RBC Hgb Hct MCH RDW Plt Count Lymph % (Auto) Williams % (Auto) Williams # Baso # Seg Neutrophils % Seg Neuts % (Manual) Lymphocytes % (Manual) Monocytes % (Manual) Seg Neutrophils # Seg Neutrophils # Man Lymphocytes # (Manual) Monocytes # (Manual) Eosinophils # (Manual) Basophils # (Manual) PT INR APTT ABG pH ABG pO2 ABG HCO3 ABG O2 Saturation ABG Base Excess ABG Hemoglobin Oxyhemoglobin Sodium Potassium Chloride Carbon Dioxide BUN Creatinine Glucose POC Glucose 142 H 140 H 125 H Lactic Acid Calcium Ionized Calcium Phosphorus Magnesium Total Bilirubin AST ALT Alkaline Phosphatase Ammonia Total Creatine Kinase CK-MB (CK-2) CK-MB (CK-2) Rel Index Total Protein Albumin Urine WBC (Auto) Vancomycin Trough Salicylates Acetaminophen Plasma/Serum Alcohol Crossmatch 0312/17/19 12/17/19 17:05 18:00 Unknown WBC RBC Hgb Hct MCH RDW Plt Count Lymph % (Auto) Williams % (Auto) Williams # Baso # Seg Neutrophils % Seg Neuts % (Manual) Lymphocytes % (Manual) Monocytes % (Manual) Seg Neutrophils # Seg Neutrophils # Man Lymphocytes # (Manual) Monocytes # (Manual) Eosinophils # (Manual) Basophils # (Manual) PT INR APTT ABG pH ABG pO2 68.1 L ABG HCO3 ABG O2 Saturation 93.7 L ABG Base Excess ABG Hemoglobin 5.0 L Oxyhemoglobin 91.7 L Sodium Potassium Chloride Carbon Dioxide BUN Creatinine Glucose POC Glucose 140 H Lactic Acid Calcium Ionized Calcium Phosphorus Magnesium Total Bilirubin AST ALT Alkaline Phosphatase Ammonia Total Creatine Kinase CK-MB (CK-2) CK-MB (CK-2) Rel Index Total Protein Albumin Urine WBC (Auto) Vancomycin Trough Salicylates Acetaminophen Plasma/Serum Alcohol Crossmatch 12/18/19 12/18/19 12/18/19 00:16 04:53 04:53 WBC 28.6 H RBC 2.27 L Hgb 6.3 L Hct 19.5 L* MCH RDW 20.0 H Plt Count 497 H Lymph % (Auto) Williams % (Auto) Williams # Baso # Seg Neutrophils % Seg Neuts % (Manual) Lymphocytes % (Manual) Monocytes % (Manual) Seg Neutrophils # Seg Neutrophils # Man Lymphocytes # (Manual) Monocytes # (Manual) Eosinophils # (Manual) Basophils # (Manual) PT INR APTT ABG pH ABG pO2 ABG HCO3 ABG O2 Saturation ABG Base Excess ABG Hemoglobin Oxyhemoglobin Sodium Potassium Chloride 107.9 H Carbon Dioxide 20 L BUN 27 H Creatinine 0.6 L Glucose 116 H POC Glucose 123 H Lactic Acid Calcium Ionized Calcium Phosphorus Magnesium Total Bilirubin AST ALT Alkaline Phosphatase Ammonia Total Creatine Kinase CK-MB (CK-2) CK-MB (CK-2) Rel Index Total Protein Albumin Urine WBC (Auto) Vancomycin Trough Salicylates Acetaminophen Plasma/Serum Alcohol Crossmatch 12/18/19 12/18/19 12/18/19 06:38 11:22 12:08 WBC RBC Hgb Hct MCH RDW Plt Count Lymph % (Auto) Williams % (Auto) Williams # Baso # Seg Neutrophils % Seg Neuts % (Manual) Lymphocytes % (Manual) Monocytes % (Manual) Seg Neutrophils # Seg Neutrophils # Man Lymphocytes # (Manual) Monocytes # (Manual) Eosinophils # (Manual) Basophils # (Manual) PT INR APTT ABG pH ABG pO2 ABG HCO3 ABG O2 Saturation ABG Base Excess ABG Hemoglobin Oxyhemoglobin Sodium Potassium Chloride Carbon Dioxide BUN Creatinine Glucose POC Glucose 120 H 127 H Lactic Acid Calcium Ionized Calcium Phosphorus Magnesium Total Bilirubin AST ALT Alkaline Phosphatase Ammonia Total Creatine Kinase CK-MB (CK-2) CK-MB (CK-2) Rel Index Total Protein Albumin Urine WBC (Auto) Vancomycin Trough Salicylates Acetaminophen Plasma/Serum Alcohol Crossmatch See Detail 12/18/19 12/18/19 12/18/19 14:05 17:49 23:53 WBC RBC Hgb Hct MCH RDW Plt Count Lymph % (Auto) Williams % (Auto) Williams # Baso # Seg Neutrophils % Seg Neuts % (Manual) Lymphocytes % (Manual) Monocytes % (Manual) Seg Neutrophils # Seg Neutrophils # Man Lymphocytes # (Manual) Monocytes # (Manual) Eosinophils # (Manual) Basophils # (Manual) PT INR APTT ABG pH 7.267 L ABG pO2 69.8 L ABG HCO3 ABG O2 Saturation 88.4 L ABG Base Excess ABG Hemoglobin 7.1 L Oxyhemoglobin 86.4 L Sodium Potassium Chloride Carbon Dioxide BUN Creatinine Glucose POC Glucose 157 H 128 H Lactic Acid Calcium Ionized Calcium Phosphorus Magnesium Total Bilirubin AST ALT Alkaline Phosphatase Ammonia Total Creatine Kinase CK-MB (CK-2) CK-MB (CK-2) Rel Index Total Protein Albumin Urine WBC (Auto) Vancomycin Trough Salicylates Acetaminophen Plasma/Serum Alcohol Crossmatch 12/19/19 12/19/19 12/19/19 03:37 03:37 05:25 WBC 31.3 H RBC 2.60 L Hgb 7.6 L Hct 23.0 L MCH RDW 19.4 H Plt Count 530 H Lymph % (Auto) Williams % (Auto) Williams # Baso # Seg Neutrophils % Seg Neuts % (Manual) Lymphocytes % (Manual) Monocytes % (Manual) Seg Neutrophils # Seg Neutrophils # Man Lymphocytes # (Manual) Monocytes # (Manual) Eosinophils # (Manual) Basophils # (Manual) PT INR APTT ABG pH ABG pO2 ABG HCO3 ABG O2 Saturation ABG Base Excess ABG Hemoglobin Oxyhemoglobin Sodium Potassium Chloride Carbon Dioxide 18 L BUN 36 H Creatinine Glucose 111 H POC Glucose 123 H Lactic Acid Calcium Ionized Calcium Phosphorus Magnesium Total Bilirubin AST ALT Alkaline Phosphatase Ammonia Total Creatine Kinase CK-MB (CK-2) CK-MB (CK-2) Rel Index Total Protein Albumin Urine WBC (Auto) Vancomycin Trough Salicylates Acetaminophen Plasma/Serum Alcohol Crossmatch 12/19/19 12/19/19 12/20/19 12:59 18:33 00:00 WBC RBC Hgb Hct MCH RDW Plt Count Lymph % (Auto) Williams % (Auto) Williams # Baso # Seg Neutrophils % Seg Neuts % (Manual) Lymphocytes % (Manual) Monocytes % (Manual) Seg Neutrophils # Seg Neutrophils # Man Lymphocytes # (Manual) Monocytes # (Manual) Eosinophils # (Manual) Basophils # (Manual) PT INR APTT ABG pH ABG pO2 ABG HCO3 ABG O2 Saturation ABG Base Excess ABG Hemoglobin Oxyhemoglobin Sodium Potassium Chloride Carbon Dioxide BUN Creatinine Glucose POC Glucose 130 H 118 H 135 H Lactic Acid Calcium Ionized Calcium Phosphorus Magnesium Total Bilirubin AST ALT Alkaline Phosphatase Ammonia Total Creatine Kinase CK-MB (CK-2) CK-MB (CK-2) Rel Index Total Protein Albumin Urine WBC (Auto) Vancomycin Trough Salicylates Acetaminophen Plasma/Serum Alcohol Crossmatch 12/20/19 12/20/19 12/20/19 05:46 12:31 18:07 WBC RBC Hgb Hct MCH RDW Plt Count Lymph % (Auto) Williams % (Auto) Williams # Baso # Seg Neutrophils % Seg Neuts % (Manual) Lymphocytes % (Manual) Monocytes % (Manual) Seg Neutrophils # Seg Neutrophils # Man Lymphocytes # (Manual) Monocytes # (Manual) Eosinophils # (Manual) Basophils # (Manual) PT INR APTT ABG pH ABG pO2 ABG HCO3 ABG O2 Saturation ABG Base Excess ABG Hemoglobin Oxyhemoglobin Sodium Potassium Chloride Carbon Dioxide BUN Creatinine Glucose POC Glucose 131 H 128 H 134 H Lactic Acid Calcium Ionized Calcium Phosphorus Magnesium Total Bilirubin AST ALT Alkaline Phosphatase Ammonia Total Creatine Kinase CK-MB (CK-2) CK-MB (CK-2) Rel Index Total Protein Albumin Urine WBC (Auto) Vancomycin Trough Salicylates Acetaminophen Plasma/Serum Alcohol Crossmatch 12/21/19 12/21/19 12/21/19 03:28 03:28 07:21 WBC 29.4 H RBC 2.30 L Hgb 6.8 L Hct 20.2 L MCH RDW 20.2 H Plt Count 746 H Lymph % (Auto) Williams % (Auto) Williams # Baso # Seg Neutrophils % Seg Neuts % (Manual) 85.0 H Lymphocytes % (Manual) 8.0 L Monocytes % (Manual) Seg Neutrophils # Seg Neutrophils # Man 25.0 H Lymphocytes # (Manual) Monocytes # (Manual) 1.5 H Eosinophils # (Manual) 0.6 H Basophils # (Manual) PT INR APTT ABG pH ABG pO2 ABG HCO3 ABG O2 Saturation ABG Base Excess ABG Hemoglobin Oxyhemoglobin Sodium Potassium Chloride Carbon Dioxide 17 L BUN 57 H Creatinine 1.4 H D Glucose POC Glucose 124 H Lactic Acid Calcium Ionized Calcium Phosphorus Magnesium Total Bilirubin AST ALT Alkaline Phosphatase Ammonia Total Creatine Kinase CK-MB (CK-2) CK-MB (CK-2) Rel Index Total Protein Albumin Urine WBC (Auto) Vancomycin Trough Salicylates Acetaminophen Plasma/Serum Alcohol Crossmatch 12/21/19 12/21/19 12/21/19 08:56 12:06 14:53 WBC RBC Hgb 7.2 L Hct 22.9 L MCH RDW Plt Count Lymph % (Auto) Williams % (Auto) Williams # Baso # Seg Neutrophils % Seg Neuts % (Manual) Lymphocytes % (Manual) Monocytes % (Manual) Seg Neutrophils # Seg Neutrophils # Man Lymphocytes # (Manual) Monocytes # (Manual) Eosinophils # (Manual) Basophils # (Manual) PT INR APTT ABG pH ABG pO2 ABG HCO3 ABG O2 Saturation ABG Base Excess ABG Hemoglobin Oxyhemoglobin Sodium Potassium Chloride Carbon Dioxide BUN Creatinine Glucose POC Glucose 116 H Lactic Acid Calcium Ionized Calcium Phosphorus Magnesium Total Bilirubin AST ALT Alkaline Phosphatase Ammonia Total Creatine Kinase CK-MB (CK-2) CK-MB (CK-2) Rel Index Total Protein Albumin Urine WBC (Auto) Vancomycin Trough 33.8 H Salicylates Acetaminophen Plasma/Serum Alcohol Crossmatch 12/21/19 12/21/19 12/21/19 14:54 17:27 23:49 WBC RBC Hgb Hct MCH RDW Plt Count Lymph % (Auto) Williams % (Auto) Williams # Baso # Seg Neutrophils % Seg Neuts % (Manual) Lymphocytes % (Manual) Monocytes % (Manual) Seg Neutrophils # Seg Neutrophils # Man Lymphocytes # (Manual) Monocytes # (Manual) Eosinophils # (Manual) Basophils # (Manual) PT INR APTT ABG pH ABG pO2 ABG HCO3 ABG O2 Saturation ABG Base Excess ABG Hemoglobin Oxyhemoglobin Sodium Potassium Chloride Carbon Dioxide BUN Creatinine Glucose POC Glucose 145 H 127 H Lactic Acid Calcium Ionized Calcium Phosphorus Magnesium Total Bilirubin AST ALT Alkaline Phosphatase Ammonia Total Creatine Kinase CK-MB (CK-2) CK-MB (CK-2) Rel Index Total Protein Albumin Urine WBC (Auto) Vancomycin Trough Salicylates Acetaminophen Plasma/Serum Alcohol Crossmatch See Detail 12/22/19 12/22/19 12/22/19 04:43 05:56 08:40 WBC RBC Hgb Hct MCH RDW Plt Count Lymph % (Auto) Williams % (Auto) Williams # Baso # Seg Neutrophils % Seg Neuts % (Manual) Lymphocytes % (Manual) Monocytes % (Manual) Seg Neutrophils # Seg Neutrophils # Man Lymphocytes # (Manual) Monocytes # (Manual) Eosinophils # (Manual) Basophils # (Manual) PT INR APTT ABG pH ABG pO2 75.6 L ABG HCO3 ABG O2 Saturation ABG Base Excess -2.6 L ABG Hemoglobin 6.8 L Oxyhemoglobin 94.6 L Sodium Potassium Chloride Carbon Dioxide 17 L BUN 60 H Creatinine 1.4 H Glucose 126 H POC Glucose 153 H Lactic Acid Calcium Ionized Calcium Phosphorus Magnesium Total Bilirubin AST ALT Alkaline Phosphatase Ammonia Total Creatine Kinase CK-MB (CK-2) CK-MB (CK-2) Rel Index Total Protein Albumin Urine WBC (Auto) Vancomycin Trough Salicylates Acetaminophen Plasma/Serum Alcohol Crossmatch 12/22/19 12/22/19 12/23/19 12:07 17:49 04:30 WBC 22.4 H RBC 2.68 L Hgb 7.6 L Hct 22.9 L MCH RDW 19.9 H Plt Count 998 H Lymph % (Auto) Williams % (Auto) Williams # Baso # Seg Neutrophils % Seg Neuts % (Manual) 88.0 H Lymphocytes % (Manual) 2.0 L Monocytes % (Manual) 9.0 H Seg Neutrophils # Seg Neutrophils # Man 19.7 H Lymphocytes # (Manual) 0.4 L Monocytes # (Manual) 2.0 H Eosinophils # (Manual) Basophils # (Manual) PT INR APTT ABG pH ABG pO2 ABG HCO3 ABG O2 Saturation ABG Base Excess ABG Hemoglobin Oxyhemoglobin Sodium Potassium Chloride Carbon Dioxide BUN Creatinine Glucose POC Glucose 140 H 116 H Lactic Acid Calcium Ionized Calcium Phosphorus Magnesium Total Bilirubin AST ALT Alkaline Phosphatase Ammonia Total Creatine Kinase CK-MB (CK-2) CK-MB (CK-2) Rel Index Total Protein Albumin Urine WBC (Auto) Vancomycin Trough Salicylates Acetaminophen Plasma/Serum Alcohol Crossmatch 12/23/19 12/23/19 12/23/19 04:30 12:00 18:06 WBC RBC Hgb Hct MCH RDW Plt Count Lymph % (Auto) Williams % (Auto) Williams # Baso # Seg Neutrophils % Seg Neuts % (Manual) Lymphocytes % (Manual) Monocytes % (Manual) Seg Neutrophils # Seg Neutrophils # Man Lymphocytes # (Manual) Monocytes # (Manual) Eosinophils # (Manual) Basophils # (Manual) PT INR APTT ABG pH ABG pO2 ABG HCO3 ABG O2 Saturation ABG Base Excess ABG Hemoglobin Oxyhemoglobin Sodium Potassium 5.2 H Chloride Carbon Dioxide 21 L BUN 69 H Creatinine 1.5 H Glucose 117 H POC Glucose 128 H 138 H Lactic Acid Calcium Ionized Calcium Phosphorus Magnesium Total Bilirubin AST ALT Alkaline Phosphatase Ammonia Total Creatine Kinase CK-MB (CK-2) CK-MB (CK-2) Rel Index Total Protein Albumin Urine WBC (Auto) Vancomycin Trough Salicylates Acetaminophen Plasma/Serum Alcohol Crossmatch 12/23/19 12/24/19 12/24/19 23:46 04:31 05:08 WBC RBC Hgb Hct MCH RDW Plt Count Lymph % (Auto) Williams % (Auto) Williams # Baso # Seg Neutrophils % Seg Neuts % (Manual) Lymphocytes % (Manual) Monocytes % (Manual) Seg Neutrophils # Seg Neutrophils # Man Lymphocytes # (Manual) Monocytes # (Manual) Eosinophils # (Manual) Basophils # (Manual) PT INR APTT ABG pH ABG pO2 ABG HCO3 ABG O2 Saturation ABG Base Excess ABG Hemoglobin Oxyhemoglobin Sodium Potassium 5.3 H Chloride 107.6 H Carbon Dioxide 20 L BUN 72 H Creatinine 1.6 H Glucose 120 H POC Glucose 120 H 140 H Lactic Acid Calcium Ionized Calcium Phosphorus Magnesium Total Bilirubin AST ALT Alkaline Phosphatase Ammonia Total Creatine Kinase CK-MB (CK-2) CK-MB (CK-2) Rel Index Total Protein Albumin Urine WBC (Auto) Vancomycin Trough Salicylates Acetaminophen Plasma/Serum Alcohol Crossmatch 12/24/19 12/24/19 12/25/19 11:58 17:49 03:47 WBC 36.2 H RBC 2.92 L Hgb 8.4 L Hct 26.1 L MCH RDW 20.2 H Plt Count 942 H Lymph % (Auto) Williams % (Auto) Williams # Baso # Seg Neutrophils % Seg Neuts % (Manual) 97.5 H Lymphocytes % (Manual) 1.0 L Monocytes % (Manual) Seg Neutrophils # Seg Neutrophils # Man 35.3 H Lymphocytes # (Manual) 0.4 L Monocytes # (Manual) Eosinophils # (Manual) Basophils # (Manual) PT INR APTT ABG pH ABG pO2 ABG HCO3 ABG O2 Saturation ABG Base Excess ABG Hemoglobin Oxyhemoglobin Sodium Potassium Chloride Carbon Dioxide BUN Creatinine Glucose POC Glucose 146 H 131 H Lactic Acid Calcium Ionized Calcium Phosphorus Magnesium Total Bilirubin AST ALT Alkaline Phosphatase Ammonia Total Creatine Kinase CK-MB (CK-2) CK-MB (CK-2) Rel Index Total Protein Albumin Urine WBC (Auto) Vancomycin Trough Salicylates Acetaminophen Plasma/Serum Alcohol Crossmatch 12/25/19 12/25/19 12/25/19 03:47 05:30 12:23 WBC RBC Hgb Hct MCH RDW Plt Count Lymph % (Auto) Williams % (Auto) Williams # Baso # Seg Neutrophils % Seg Neuts % (Manual) Lymphocytes % (Manual) Monocytes % (Manual) Seg Neutrophils # Seg Neutrophils # Man Lymphocytes # (Manual) Monocytes # (Manual) Eosinophils # (Manual) Basophils # (Manual) PT INR APTT ABG pH ABG pO2 ABG HCO3 ABG O2 Saturation ABG Base Excess ABG Hemoglobin Oxyhemoglobin Sodium Potassium Chloride Carbon Dioxide 15 L BUN 70 H Creatinine 1.7 H Glucose 153 H POC Glucose 169 H 135 H Lactic Acid Calcium Ionized Calcium Phosphorus Magnesium Total Bilirubin AST ALT Alkaline Phosphatase Ammonia Total Creatine Kinase CK-MB (CK-2) CK-MB (CK-2) Rel Index Total Protein Albumin Urine WBC (Auto) Vancomycin Trough Salicylates Acetaminophen Plasma/Serum Alcohol Crossmatch 12/25/19 12/25/19 12/26/19 17:37 23:29 09:47 WBC 22.1 H RBC 2.83 L Hgb 7.9 L Hct 25.5 L MCH RDW 20.0 H Plt Count 894 H Lymph % (Auto) Williams % (Auto) Williams # Baso # Seg Neutrophils % Seg Neuts % (Manual) Lymphocytes % (Manual) Monocytes % (Manual) Seg Neutrophils # Seg Neutrophils # Man Lymphocytes # (Manual) Monocytes # (Manual) Eosinophils # (Manual) Basophils # (Manual) PT INR APTT ABG pH ABG pO2 ABG HCO3 ABG O2 Saturation ABG Base Excess ABG Hemoglobin Oxyhemoglobin Sodium Potassium Chloride Carbon Dioxide BUN Creatinine Glucose POC Glucose 120 H 140 H Lactic Acid Calcium Ionized Calcium Phosphorus Magnesium Total Bilirubin AST ALT Alkaline Phosphatase Ammonia Total Creatine Kinase CK-MB (CK-2) CK-MB (CK-2) Rel Index Total Protein Albumin Urine WBC (Auto) Vancomycin Trough Salicylates Acetaminophen Plasma/Serum Alcohol Crossmatch 12/26/19 12/26/19 12/26/19 09:47 11:46 17:52 WBC RBC Hgb Hct MCH RDW Plt Count Lymph % (Auto) Williams % (Auto) Williams # Baso # Seg Neutrophils % Seg Neuts % (Manual) Lymphocytes % (Manual) Monocytes % (Manual) Seg Neutrophils # Seg Neutrophils # Man Lymphocytes # (Manual) Monocytes # (Manual) Eosinophils # (Manual) Basophils # (Manual) PT INR APTT ABG pH ABG pO2 ABG HCO3 ABG O2 Saturation ABG Base Excess ABG Hemoglobin Oxyhemoglobin Sodium Potassium Chloride Carbon Dioxide 18 L BUN 65 H Creatinine 1.4 H Glucose 132 H POC Glucose 110 H 145 H Lactic Acid Calcium Ionized Calcium Phosphorus Magnesium Total Bilirubin AST ALT Alkaline Phosphatase Ammonia Total Creatine Kinase CK-MB (CK-2) CK-MB (CK-2) Rel Index Total Protein Albumin Urine WBC (Auto) Vancomycin Trough Salicylates Acetaminophen Plasma/Serum Alcohol Crossmatch 12/27/19 12/27/19 12/27/19 00:01 03:42 03:42 WBC 18.0 H RBC 2.86 L Hgb 8.0 L Hct 25.2 L MCH RDW 19.2 H Plt Count 873 H Lymph % (Auto) 8.4 L Williams % (Auto) 7.5 H Williams # 1.4 H Baso # 0.2 H Seg Neutrophils % 82.2 H Seg Neuts % (Manual) Lymphocytes % (Manual) Monocytes % (Manual) Seg Neutrophils # 14.8 H Seg Neutrophils # Man Lymphocytes # (Manual) Monocytes # (Manual) Eosinophils # (Manual) Basophils # (Manual) PT INR APTT ABG pH ABG pO2 ABG HCO3 ABG O2 Saturation ABG Base Excess ABG Hemoglobin Oxyhemoglobin Sodium Potassium Chloride Carbon Dioxide BUN 73 H Creatinine 1.4 H Glucose 119 H POC Glucose 124 H Lactic Acid Calcium Ionized Calcium Phosphorus Magnesium Total Bilirubin AST ALT Alkaline Phosphatase Ammonia Total Creatine Kinase CK-MB (CK-2) CK-MB (CK-2) Rel Index Total Protein Albumin Urine WBC (Auto) Vancomycin Trough Salicylates Acetaminophen Plasma/Serum Alcohol Crossmatch 12/27/19 12/27/19 12/27/19 05:45 11:45 17:29 WBC RBC Hgb Hct MCH RDW Plt Count Lymph % (Auto) Williams % (Auto) Williams # Baso # Seg Neutrophils % Seg Neuts % (Manual) Lymphocytes % (Manual) Monocytes % (Manual) Seg Neutrophils # Seg Neutrophils # Man Lymphocytes # (Manual) Monocytes # (Manual) Eosinophils # (Manual) Basophils # (Manual) PT INR APTT ABG pH ABG pO2 ABG HCO3 ABG O2 Saturation ABG Base Excess ABG Hemoglobin Oxyhemoglobin Sodium Potassium Chloride Carbon Dioxide BUN Creatinine Glucose POC Glucose 131 H 123 H 134 H Lactic Acid Calcium Ionized Calcium Phosphorus Magnesium Total Bilirubin AST ALT Alkaline Phosphatase Ammonia Total Creatine Kinase CK-MB (CK-2) CK-MB (CK-2) Rel Index Total Protein Albumin Urine WBC (Auto) Vancomycin Trough Salicylates Acetaminophen Plasma/Serum Alcohol Crossmatch 12/28/19 12/28/19 12/28/19 00:12 05:14 11:53 WBC RBC Hgb Hct MCH RDW Plt Count Lymph % (Auto) Williams % (Auto) Williams # Baso # Seg Neutrophils % Seg Neuts % (Manual) Lymphocytes % (Manual) Monocytes % (Manual) Seg Neutrophils # Seg Neutrophils # Man Lymphocytes # (Manual) Monocytes # (Manual) Eosinophils # (Manual) Basophils # (Manual) PT INR APTT ABG pH ABG pO2 ABG HCO3 ABG O2 Saturation ABG Base Excess ABG Hemoglobin Oxyhemoglobin Sodium Potassium Chloride Carbon Dioxide BUN Creatinine Glucose POC Glucose 138 H 130 H 146 H Lactic Acid Calcium Ionized Calcium Phosphorus Magnesium Total Bilirubin AST ALT Alkaline Phosphatase Ammonia Total Creatine Kinase CK-MB (CK-2) CK-MB (CK-2) Rel Index Total Protein Albumin Urine WBC (Auto) Vancomycin Trough Salicylates Acetaminophen Plasma/Serum Alcohol Crossmatch 12/28/19 12/29/19 12/29/19 17:39 00:01 18:11 WBC RBC Hgb Hct MCH RDW Plt Count Lymph % (Auto) Williams % (Auto) Williams # Baso # Seg Neutrophils % Seg Neuts % (Manual) Lymphocytes % (Manual) Monocytes % (Manual) Seg Neutrophils # Seg Neutrophils # Man Lymphocytes # (Manual) Monocytes # (Manual) Eosinophils # (Manual) Basophils # (Manual) PT INR APTT ABG pH ABG pO2 ABG HCO3 ABG O2 Saturation ABG Base Excess ABG Hemoglobin Oxyhemoglobin Sodium Potassium Chloride Carbon Dioxide BUN Creatinine Glucose POC Glucose 117 H 139 H 130 H Lactic Acid Calcium Ionized Calcium Phosphorus Magnesium Total Bilirubin AST ALT Alkaline Phosphatase Ammonia Total Creatine Kinase CK-MB (CK-2) CK-MB (CK-2) Rel Index Total Protein Albumin Urine WBC (Auto) Vancomycin Trough Salicylates Acetaminophen Plasma/Serum Alcohol Crossmatch 12/29/19 12/30/19 12/30/19 23:09 00:02 01:06 WBC 16.7 H RBC 2.91 L Hgb 8.2 L Hct 25.4 L MCH RDW 18.7 H Plt Count 708 H Lymph % (Auto) 9.4 L Williams % (Auto) Williams # 0.9 H Baso # Seg Neutrophils % 83.5 H Seg Neuts % (Manual) Lymphocytes % (Manual) Monocytes % (Manual) Seg Neutrophils # 14.0 H Seg Neutrophils # Man Lymphocytes # (Manual) Monocytes # (Manual) Eosinophils # (Manual) Basophils # (Manual) PT INR APTT ABG pH ABG pO2 ABG HCO3 ABG O2 Saturation ABG Base Excess ABG Hemoglobin Oxyhemoglobin Sodium Potassium Chloride Carbon Dioxide BUN Creatinine Glucose POC Glucose 120 H 114 H Lactic Acid Calcium Ionized Calcium Phosphorus Magnesium Total Bilirubin AST ALT Alkaline Phosphatase Ammonia Total Creatine Kinase CK-MB (CK-2) CK-MB (CK-2) Rel Index Total Protein Albumin Urine WBC (Auto) Vancomycin Trough Salicylates Acetaminophen Plasma/Serum Alcohol Crossmatch 12/30/19 12/30/19 12/30/19 01:06 04:23 05:18 WBC RBC Hgb Hct MCH RDW Plt Count Lymph % (Auto) Williams % (Auto) Williams # Baso # Seg Neutrophils % Seg Neuts % (Manual) Lymphocytes % (Manual) Monocytes % (Manual) Seg Neutrophils # Seg Neutrophils # Man Lymphocytes # (Manual) Monocytes # (Manual) Eosinophils # (Manual) Basophils # (Manual) PT INR APTT ABG pH ABG pO2 ABG HCO3 ABG O2 Saturation ABG Base Excess ABG Hemoglobin 8.3 L Oxyhemoglobin Sodium Potassium Chloride Carbon Dioxide BUN 70 H Creatinine Glucose 122 H POC Glucose 130 H Lactic Acid Calcium Ionized Calcium Phosphorus Magnesium Total Bilirubin AST ALT Alkaline Phosphatase Ammonia Total Creatine Kinase CK-MB (CK-2) CK-MB (CK-2) Rel Index Total Protein Albumin Urine WBC (Auto) Vancomycin Trough Salicylates Acetaminophen Plasma/Serum Alcohol Crossmatch 12/30/19 12/30/19 12/30/19 05:40 12:17 17:43 WBC RBC Hgb Hct MCH RDW Plt Count Lymph % (Auto) Williams % (Auto) Williams # Baso # Seg Neutrophils % Seg Neuts % (Manual) Lymphocytes % (Manual) Monocytes % (Manual) Seg Neutrophils # Seg Neutrophils # Man Lymphocytes # (Manual) Monocytes # (Manual) Eosinophils # (Manual) Basophils # (Manual) PT INR APTT ABG pH ABG pO2 ABG HCO3 ABG O2 Saturation ABG Base Excess ABG Hemoglobin Oxyhemoglobin Sodium Potassium Chloride Carbon Dioxide BUN Creatinine Glucose POC Glucose 135 H 132 H 118 H Lactic Acid Calcium Ionized Calcium Phosphorus Magnesium Total Bilirubin AST ALT Alkaline Phosphatase Ammonia Total Creatine Kinase CK-MB (CK-2) CK-MB (CK-2) Rel Index Total Protein Albumin Urine WBC (Auto) Vancomycin Trough Salicylates Acetaminophen Plasma/Serum Alcohol Crossmatch 12/30/19 12/31/19 12/31/19 23:29 05:19 17:50 WBC RBC Hgb Hct MCH RDW Plt Count Lymph % (Auto) Williams % (Auto) Williams # Baso # Seg Neutrophils % Seg Neuts % (Manual) Lymphocytes % (Manual) Monocytes % (Manual) Seg Neutrophils # Seg Neutrophils # Man Lymphocytes # (Manual) Monocytes # (Manual) Eosinophils # (Manual) Basophils # (Manual) PT INR APTT ABG pH ABG pO2 ABG HCO3 ABG O2 Saturation ABG Base Excess ABG Hemoglobin Oxyhemoglobin Sodium Potassium Chloride Carbon Dioxide BUN Creatinine Glucose POC Glucose 114 H 109 H 116 H Lactic Acid Calcium Ionized Calcium Phosphorus Magnesium Total Bilirubin AST ALT Alkaline Phosphatase Ammonia Total Creatine Kinase CK-MB (CK-2) CK-MB (CK-2) Rel Index Total Protein Albumin Urine WBC (Auto) Vancomycin Trough Salicylates Acetaminophen Plasma/Serum Alcohol Crossmatch 01/01/20 01/01/20 01/01/20 00:10 05:19 12:02 WBC RBC Hgb Hct MCH RDW Plt Count Lymph % (Auto) Williams % (Auto) Williams # Baso # Seg Neutrophils % Seg Neuts % (Manual) Lymphocytes % (Manual) Monocytes % (Manual) Seg Neutrophils # Seg Neutrophils # Man Lymphocytes # (Manual) Monocytes # (Manual) Eosinophils # (Manual) Basophils # (Manual) PT INR APTT ABG pH ABG pO2 ABG HCO3 ABG O2 Saturation ABG Base Excess ABG Hemoglobin Oxyhemoglobin Sodium Potassium Chloride Carbon Dioxide BUN Creatinine Glucose POC Glucose 131 H 122 H 136 H Lactic Acid Calcium Ionized Calcium Phosphorus Magnesium Total Bilirubin AST ALT Alkaline Phosphatase Ammonia Total Creatine Kinase CK-MB (CK-2) CK-MB (CK-2) Rel Index Total Protein Albumin Urine WBC (Auto) Vancomycin Trough Salicylates Acetaminophen Plasma/Serum Alcohol Crossmatch 01/02/20 01/02/20 01/02/20 00:24 05:36 11:41 WBC RBC Hgb Hct MCH RDW Plt Count Lymph % (Auto) Williams % (Auto) Williams # Baso # Seg Neutrophils % Seg Neuts % (Manual) Lymphocytes % (Manual) Monocytes % (Manual) Seg Neutrophils # Seg Neutrophils # Man Lymphocytes # (Manual) Monocytes # (Manual) Eosinophils # (Manual) Basophils # (Manual) PT INR APTT ABG pH ABG pO2 ABG HCO3 ABG O2 Saturation ABG Base Excess ABG Hemoglobin Oxyhemoglobin Sodium Potassium Chloride Carbon Dioxide BUN Creatinine Glucose POC Glucose 119 H 109 H 125 H Lactic Acid Calcium Ionized Calcium Phosphorus Magnesium Total Bilirubin AST ALT Alkaline Phosphatase Ammonia Total Creatine Kinase CK-MB (CK-2) CK-MB (CK-2) Rel Index Total Protein Albumin Urine WBC (Auto) Vancomycin Trough Salicylates Acetaminophen Plasma/Serum Alcohol Crossmatch 01/02/20 01/03/20 01/03/20 17:49 05:29 12:13 WBC RBC Hgb Hct MCH RDW Plt Count Lymph % (Auto) Williams % (Auto) Williams # Baso # Seg Neutrophils % Seg Neuts % (Manual) Lymphocytes % (Manual) Monocytes % (Manual) Seg Neutrophils # Seg Neutrophils # Man Lymphocytes # (Manual) Monocytes # (Manual) Eosinophils # (Manual) Basophils # (Manual) PT INR APTT ABG pH ABG pO2 ABG HCO3 ABG O2 Saturation ABG Base Excess ABG Hemoglobin Oxyhemoglobin Sodium Potassium Chloride Carbon Dioxide BUN Creatinine Glucose POC Glucose 130 H 132 H 113 H Lactic Acid Calcium Ionized Calcium Phosphorus Magnesium Total Bilirubin AST ALT Alkaline Phosphatase Ammonia Total Creatine Kinase CK-MB (CK-2) CK-MB (CK-2) Rel Index Total Protein Albumin Urine WBC (Auto) Vancomycin Trough Salicylates Acetaminophen Plasma/Serum Alcohol Crossmatch 01/03/20 01/04/20 01/04/20 17:32 00:19 05:26 WBC RBC Hgb Hct MCH RDW Plt Count Lymph % (Auto) Williams % (Auto) Williams # Baso # Seg Neutrophils % Seg Neuts % (Manual) Lymphocytes % (Manual) Monocytes % (Manual) Seg Neutrophils # Seg Neutrophils # Man Lymphocytes # (Manual) Monocytes # (Manual) Eosinophils # (Manual) Basophils # (Manual) PT INR APTT ABG pH ABG pO2 ABG HCO3 ABG O2 Saturation ABG Base Excess ABG Hemoglobin Oxyhemoglobin Sodium Potassium Chloride Carbon Dioxide BUN Creatinine Glucose POC Glucose 127 H 141 H 129 H Lactic Acid Calcium Ionized Calcium Phosphorus Magnesium Total Bilirubin AST ALT Alkaline Phosphatase Ammonia Total Creatine Kinase CK-MB (CK-2) CK-MB (CK-2) Rel Index Total Protein Albumin Urine WBC (Auto) Vancomycin Trough Salicylates Acetaminophen Plasma/Serum Alcohol Crossmatch 01/04/20 01/04/20 01/05/20 11:39 17:29 05:22 WBC RBC Hgb Hct MCH RDW Plt Count Lymph % (Auto) Williams % (Auto) Williams # Baso # Seg Neutrophils % Seg Neuts % (Manual) Lymphocytes % (Manual) Monocytes % (Manual) Seg Neutrophils # Seg Neutrophils # Man Lymphocytes # (Manual) Monocytes # (Manual) Eosinophils # (Manual) Basophils # (Manual) PT INR APTT ABG pH ABG pO2 ABG HCO3 ABG O2 Saturation ABG Base Excess ABG Hemoglobin Oxyhemoglobin Sodium Potassium Chloride Carbon Dioxide BUN Creatinine Glucose POC Glucose 167 H 132 H 121 H Lactic Acid Calcium Ionized Calcium Phosphorus Magnesium Total Bilirubin AST ALT Alkaline Phosphatase Ammonia Total Creatine Kinase CK-MB (CK-2) CK-MB (CK-2) Rel Index Total Protein Albumin Urine WBC (Auto) Vancomycin Trough Salicylates Acetaminophen Plasma/Serum Alcohol Crossmatch 01/05/20 01/05/20 01/05/20 12:25 17:40 18:06 WBC RBC Hgb Hct MCH RDW Plt Count Lymph % (Auto) Williams % (Auto) Williams # Baso # Seg Neutrophils % Seg Neuts % (Manual) Lymphocytes % (Manual) Monocytes % (Manual) Seg Neutrophils # Seg Neutrophils # Man Lymphocytes # (Manual) Monocytes # (Manual) Eosinophils # (Manual) Basophils # (Manual) PT INR APTT ABG pH 7.472 H ABG pO2 99.2 H ABG HCO3 ABG O2 Saturation ABG Base Excess ABG Hemoglobin 7.8 L Oxyhemoglobin Sodium Potassium Chloride Carbon Dioxide BUN Creatinine Glucose POC Glucose 106 H 110 H Lactic Acid Calcium Ionized Calcium Phosphorus Magnesium Total Bilirubin AST ALT Alkaline Phosphatase Ammonia Total Creatine Kinase CK-MB (CK-2) CK-MB (CK-2) Rel Index Total Protein Albumin Urine WBC (Auto) Vancomycin Trough Salicylates Acetaminophen Plasma/Serum Alcohol Crossmatch 01/06/20 01/06/20 01/06/20 00:11 05:16 11:30 WBC RBC Hgb Hct MCH RDW Plt Count Lymph % (Auto) Williams % (Auto) Williams # Baso # Seg Neutrophils % Seg Neuts % (Manual) Lymphocytes % (Manual) Monocytes % (Manual) Seg Neutrophils # Seg Neutrophils # Man Lymphocytes # (Manual) Monocytes # (Manual) Eosinophils # (Manual) Basophils # (Manual) PT INR APTT ABG pH ABG pO2 ABG HCO3 ABG O2 Saturation ABG Base Excess ABG Hemoglobin Oxyhemoglobin Sodium Potassium Chloride Carbon Dioxide BUN Creatinine Glucose POC Glucose 108 H 124 H 125 H Lactic Acid Calcium Ionized Calcium Phosphorus Magnesium Total Bilirubin AST ALT Alkaline Phosphatase Ammonia Total Creatine Kinase CK-MB (CK-2) CK-MB (CK-2) Rel Index Total Protein Albumin Urine WBC (Auto) Vancomycin Trough Salicylates Acetaminophen Plasma/Serum Alcohol Crossmatch 01/06/20 01/06/20 01/07/20 17:53 23:51 04:12 WBC 16.5 H RBC 3.29 L Hgb 9.3 L Hct 28.1 L MCH RDW 18.2 H Plt Count 526 H Lymph % (Auto) 8.4 L Williams % (Auto) Williams # 1.0 H Baso # Seg Neutrophils % 84.4 H Seg Neuts % (Manual) Lymphocytes % (Manual) Monocytes % (Manual) Seg Neutrophils # 13.9 H Seg Neutrophils # Man Lymphocytes # (Manual) Monocytes # (Manual) Eosinophils # (Manual) Basophils # (Manual) PT INR APTT ABG pH ABG pO2 ABG HCO3 ABG O2 Saturation ABG Base Excess ABG Hemoglobin Oxyhemoglobin Sodium Potassium Chloride Carbon Dioxide BUN Creatinine Glucose POC Glucose 166 H 128 H Lactic Acid Calcium Ionized Calcium Phosphorus Magnesium Total Bilirubin AST ALT Alkaline Phosphatase Ammonia Total Creatine Kinase CK-MB (CK-2) CK-MB (CK-2) Rel Index Total Protein Albumin Urine WBC (Auto) Vancomycin Trough Salicylates Acetaminophen Plasma/Serum Alcohol Crossmatch 01/07/20 01/07/20 01/07/20 04:12 04:45 11:51 WBC RBC Hgb Hct MCH RDW Plt Count Lymph % (Auto) Williams % (Auto) Williams # Baso # Seg Neutrophils % Seg Neuts % (Manual) Lymphocytes % (Manual) Monocytes % (Manual) Seg Neutrophils # Seg Neutrophils # Man Lymphocytes # (Manual) Monocytes # (Manual) Eosinophils # (Manual) Basophils # (Manual) PT INR APTT ABG pH ABG pO2 ABG HCO3 ABG O2 Saturation ABG Base Excess ABG Hemoglobin Oxyhemoglobin Sodium 136 L Potassium Chloride Carbon Dioxide 21 L BUN 44 H Creatinine 0.6 L Glucose 124 H POC Glucose 134 H 138 H Lactic Acid Calcium Ionized Calcium Phosphorus Magnesium Total Bilirubin AST ALT Alkaline Phosphatase Ammonia Total Creatine Kinase CK-MB (CK-2) CK-MB (CK-2) Rel Index Total Protein Albumin Urine WBC (Auto) Vancomycin Trough Salicylates Acetaminophen Plasma/Serum Alcohol Crossmatch 01/07/20 01/08/20 01/08/20 17:36 00:33 05:29 WBC RBC Hgb Hct MCH RDW Plt Count Lymph % (Auto) Williams % (Auto) Williams # Baso # Seg Neutrophils % Seg Neuts % (Manual) Lymphocytes % (Manual) Monocytes % (Manual) Seg Neutrophils # Seg Neutrophils # Man Lymphocytes # (Manual) Monocytes # (Manual) Eosinophils # (Manual) Basophils # (Manual) PT INR APTT ABG pH ABG pO2 ABG HCO3 ABG O2 Saturation ABG Base Excess ABG Hemoglobin Oxyhemoglobin Sodium Potassium Chloride Carbon Dioxide BUN Creatinine Glucose POC Glucose 128 H 119 H 124 H Lactic Acid Calcium Ionized Calcium Phosphorus Magnesium Total Bilirubin AST ALT Alkaline Phosphatase Ammonia Total Creatine Kinase CK-MB (CK-2) CK-MB (CK-2) Rel Index Total Protein Albumin Urine WBC (Auto) Vancomycin Trough Salicylates Acetaminophen Plasma/Serum Alcohol Crossmatch 01/08/20 01/08/20 01/08/20 12:51 20:25 23:22 WBC RBC Hgb Hct MCH RDW Plt Count Lymph % (Auto) Williams % (Auto) Williams # Baso # Seg Neutrophils % Seg Neuts % (Manual) Lymphocytes % (Manual) Monocytes % (Manual) Seg Neutrophils # Seg Neutrophils # Man Lymphocytes # (Manual) Monocytes # (Manual) Eosinophils # (Manual) Basophils # (Manual) PT INR APTT ABG pH ABG pO2 132.2 H ABG HCO3 ABG O2 Saturation ABG Base Excess ABG Hemoglobin Oxyhemoglobin Sodium Potassium Chloride Carbon Dioxide BUN Creatinine Glucose POC Glucose 128 H 127 H Lactic Acid Calcium Ionized Calcium Phosphorus Magnesium Total Bilirubin AST ALT Alkaline Phosphatase Ammonia Total Creatine Kinase CK-MB (CK-2) CK-MB (CK-2) Rel Index Total Protein Albumin Urine WBC (Auto) Vancomycin Trough Salicylates Acetaminophen Plasma/Serum Alcohol Crossmatch 01/09/20 01/09/20 01/09/20 05:48 08:51 11:29 WBC RBC Hgb Hct MCH RDW Plt Count Lymph % (Auto) Williams % (Auto) Williams # Baso # Seg Neutrophils % Seg Neuts % (Manual) Lymphocytes % (Manual) Monocytes % (Manual) Seg Neutrophils # Seg Neutrophils # Man Lymphocytes # (Manual) Monocytes # (Manual) Eosinophils # (Manual) Basophils # (Manual) PT INR APTT ABG pH ABG pO2 94.3 H ABG HCO3 ABG O2 Saturation ABG Base Excess ABG Hemoglobin 9.5 L Oxyhemoglobin Sodium Potassium Chloride Carbon Dioxide BUN Creatinine Glucose POC Glucose 120 H 112 H Lactic Acid Calcium Ionized Calcium Phosphorus Magnesium Total Bilirubin AST ALT Alkaline Phosphatase Ammonia Total Creatine Kinase CK-MB (CK-2) CK-MB (CK-2) Rel Index Total Protein Albumin Urine WBC (Auto) Vancomycin Trough Salicylates Acetaminophen Plasma/Serum Alcohol Crossmatch 01/09/20 01/10/20 01/10/20 17:57 05:17 12:28 WBC RBC Hgb Hct MCH RDW Plt Count Lymph % (Auto) Williams % (Auto) Williams # Baso # Seg Neutrophils % Seg Neuts % (Manual) Lymphocytes % (Manual) Monocytes % (Manual) Seg Neutrophils # Seg Neutrophils # Man Lymphocytes # (Manual) Monocytes # (Manual) Eosinophils # (Manual) Basophils # (Manual) PT INR APTT ABG pH ABG pO2 ABG HCO3 ABG O2 Saturation ABG Base Excess ABG Hemoglobin Oxyhemoglobin Sodium Potassium Chloride Carbon Dioxide BUN Creatinine Glucose POC Glucose 122 H 115 H 116 H Lactic Acid Calcium Ionized Calcium Phosphorus Magnesium Total Bilirubin AST ALT Alkaline Phosphatase Ammonia Total Creatine Kinase CK-MB (CK-2) CK-MB (CK-2) Rel Index Total Protein Albumin Urine WBC (Auto) Vancomycin Trough Salicylates Acetaminophen Plasma/Serum Alcohol Crossmatch 01/10/20 01/10/20 01/11/20 18:25 23:47 06:05 WBC RBC Hgb Hct MCH RDW Plt Count Lymph % (Auto) Williams % (Auto) Williams # Baso # Seg Neutrophils % Seg Neuts % (Manual) Lymphocytes % (Manual) Monocytes % (Manual) Seg Neutrophils # Seg Neutrophils # Man Lymphocytes # (Manual) Monocytes # (Manual) Eosinophils # (Manual) Basophils # (Manual) PT INR APTT ABG pH ABG pO2 ABG HCO3 ABG O2 Saturation ABG Base Excess ABG Hemoglobin Oxyhemoglobin Sodium Potassium Chloride Carbon Dioxide BUN Creatinine Glucose POC Glucose 123 H 115 H 151 H Lactic Acid Calcium Ionized Calcium Phosphorus Magnesium Total Bilirubin AST ALT Alkaline Phosphatase Ammonia Total Creatine Kinase CK-MB (CK-2) CK-MB (CK-2) Rel Index Total Protein Albumin Urine WBC (Auto) Vancomycin Trough Salicylates Acetaminophen Plasma/Serum Alcohol Crossmatch 01/11/20 01/11/20 01/11/20 07:00 07:00 12:27 WBC 11.8 H RBC 3.40 L Hgb 9.4 L Hct 29.3 L MCH RDW 18.1 H Plt Count 549 H Lymph % (Auto) Williams % (Auto) 9.1 H Williams # 1.1 H Baso # Seg Neutrophils % 73.3 H Seg Neuts % (Manual) Lymphocytes % (Manual) Monocytes % (Manual) Seg Neutrophils # 8.7 H Seg Neutrophils # Man Lymphocytes # (Manual) Monocytes # (Manual) Eosinophils # (Manual) Basophils # (Manual) PT INR APTT ABG pH ABG pO2 ABG HCO3 ABG O2 Saturation ABG Base Excess ABG Hemoglobin Oxyhemoglobin Sodium 134 L Potassium Chloride 97.7 L Carbon Dioxide 21 L BUN 38 H Creatinine 0.5 L Glucose 168 H POC Glucose 117 H Lactic Acid Calcium 10.5 H Ionized Calcium Phosphorus Magnesium Total Bilirubin AST ALT Alkaline Phosphatase Ammonia Total Creatine Kinase CK-MB (CK-2) CK-MB (CK-2) Rel Index Total Protein Albumin Urine WBC (Auto) Vancomycin Trough Salicylates Acetaminophen Plasma/Serum Alcohol Crossmatch 01/11/20 01/12/20 01/12/20 18:19 00:53 05:24 WBC RBC Hgb Hct MCH RDW Plt Count Lymph % (Auto) Williams % (Auto) Williams # Baso # Seg Neutrophils % Seg Neuts % (Manual) Lymphocytes % (Manual) Monocytes % (Manual) Seg Neutrophils # Seg Neutrophils # Man Lymphocytes # (Manual) Monocytes # (Manual) Eosinophils # (Manual) Basophils # (Manual) PT INR APTT ABG pH ABG pO2 ABG HCO3 ABG O2 Saturation ABG Base Excess ABG Hemoglobin Oxyhemoglobin Sodium Potassium Chloride Carbon Dioxide BUN Creatinine Glucose POC Glucose 126 H 126 H 128 H Lactic Acid Calcium Ionized Calcium Phosphorus Magnesium Total Bilirubin AST ALT Alkaline Phosphatase Ammonia Total Creatine Kinase CK-MB (CK-2) CK-MB (CK-2) Rel Index Total Protein Albumin Urine WBC (Auto) Vancomycin Trough Salicylates Acetaminophen Plasma/Serum Alcohol Crossmatch 01/12/20 01/12/20 01/13/20 13:39 18:02 00:27 WBC RBC Hgb Hct MCH RDW Plt Count Lymph % (Auto) Williams % (Auto) Williams # Baso # Seg Neutrophils % Seg Neuts % (Manual) Lymphocytes % (Manual) Monocytes % (Manual) Seg Neutrophils # Seg Neutrophils # Man Lymphocytes # (Manual) Monocytes # (Manual) Eosinophils # (Manual) Basophils # (Manual) PT INR APTT ABG pH ABG pO2 ABG HCO3 ABG O2 Saturation ABG Base Excess ABG Hemoglobin Oxyhemoglobin Sodium Potassium Chloride Carbon Dioxide BUN Creatinine Glucose POC Glucose 146 H 125 H 131 H Lactic Acid Calcium Ionized Calcium Phosphorus Magnesium Total Bilirubin AST ALT Alkaline Phosphatase Ammonia Total Creatine Kinase CK-MB (CK-2) CK-MB (CK-2) Rel Index Total Protein Albumin Urine WBC (Auto) Vancomycin Trough Salicylates Acetaminophen Plasma/Serum Alcohol Crossmatch 01/13/20 01/13/20 01/13/20 05:44 11:54 17:18 WBC RBC Hgb Hct MCH RDW Plt Count Lymph % (Auto) Williams % (Auto) Williams # Baso # Seg Neutrophils % Seg Neuts % (Manual) Lymphocytes % (Manual) Monocytes % (Manual) Seg Neutrophils # Seg Neutrophils # Man Lymphocytes # (Manual) Monocytes # (Manual) Eosinophils # (Manual) Basophils # (Manual) PT INR APTT ABG pH ABG pO2 ABG HCO3 ABG O2 Saturation ABG Base Excess ABG Hemoglobin Oxyhemoglobin Sodium Potassium Chloride Carbon Dioxide BUN Creatinine Glucose POC Glucose 148 H 140 H 130 H Lactic Acid Calcium Ionized Calcium Phosphorus Magnesium Total Bilirubin AST ALT Alkaline Phosphatase Ammonia Total Creatine Kinase CK-MB (CK-2) CK-MB (CK-2) Rel Index Total Protein Albumin Urine WBC (Auto) Vancomycin Trough Salicylates Acetaminophen Plasma/Serum Alcohol Crossmatch 01/14/20 01/14/20 01/14/20 00:16 05:45 12:19 WBC RBC Hgb Hct MCH RDW Plt Count Lymph % (Auto) Williams % (Auto) Williams # Baso # Seg Neutrophils % Seg Neuts % (Manual) Lymphocytes % (Manual) Monocytes % (Manual) Seg Neutrophils # Seg Neutrophils # Man Lymphocytes # (Manual) Monocytes # (Manual) Eosinophils # (Manual) Basophils # (Manual) PT INR APTT ABG pH ABG pO2 ABG HCO3 ABG O2 Saturation ABG Base Excess ABG Hemoglobin Oxyhemoglobin Sodium Potassium Chloride Carbon Dioxide BUN Creatinine Glucose POC Glucose 125 H 146 H 147 H Lactic Acid Calcium Ionized Calcium Phosphorus Magnesium Total Bilirubin AST ALT Alkaline Phosphatase Ammonia Total Creatine Kinase CK-MB (CK-2) CK-MB (CK-2) Rel Index Total Protein Albumin Urine WBC (Auto) Vancomycin Trough Salicylates Acetaminophen Plasma/Serum Alcohol Crossmatch 01/14/20 01/14/20 01/15/20 18:10 23:54 05:14 WBC RBC Hgb Hct MCH RDW Plt Count Lymph % (Auto) Williams % (Auto) Williams # Baso # Seg Neutrophils % Seg Neuts % (Manual) Lymphocytes % (Manual) Monocytes % (Manual) Seg Neutrophils # Seg Neutrophils # Man Lymphocytes # (Manual) Monocytes # (Manual) Eosinophils # (Manual) Basophils # (Manual) PT INR APTT ABG pH ABG pO2 ABG HCO3 ABG O2 Saturation ABG Base Excess ABG Hemoglobin Oxyhemoglobin Sodium Potassium Chloride Carbon Dioxide BUN Creatinine Glucose POC Glucose 136 H 109 H 111 H Lactic Acid Calcium Ionized Calcium Phosphorus Magnesium Total Bilirubin AST ALT Alkaline Phosphatase Ammonia Total Creatine Kinase CK-MB (CK-2) CK-MB (CK-2) Rel Index Total Protein Albumin Urine WBC (Auto) Vancomycin Trough Salicylates Acetaminophen Plasma/Serum Alcohol Crossmatch 01/15/20 01/15/20 01/16/20 12:34 23:25 05:06 WBC RBC Hgb Hct MCH RDW Plt Count Lymph % (Auto) Williams % (Auto) Williams # Baso # Seg Neutrophils % Seg Neuts % (Manual) Lymphocytes % (Manual) Monocytes % (Manual) Seg Neutrophils # Seg Neutrophils # Man Lymphocytes # (Manual) Monocytes # (Manual) Eosinophils # (Manual) Basophils # (Manual) PT INR APTT ABG pH ABG pO2 ABG HCO3 ABG O2 Saturation ABG Base Excess ABG Hemoglobin Oxyhemoglobin Sodium Potassium Chloride Carbon Dioxide BUN Creatinine Glucose POC Glucose 131 H 120 H 121 H Lactic Acid Calcium Ionized Calcium Phosphorus Magnesium Total Bilirubin AST ALT Alkaline Phosphatase Ammonia Total Creatine Kinase CK-MB (CK-2) CK-MB (CK-2) Rel Index Total Protein Albumin Urine WBC (Auto) Vancomycin Trough Salicylates Acetaminophen Plasma/Serum Alcohol Crossmatch 01/16/20 01/16/20 01/17/20 12:15 23:46 05:32 WBC 13.6 H RBC 3.27 L Hgb 9.3 L Hct 28.5 L MCH RDW 17.0 H Plt Count 490 H Lymph % (Auto) 13.1 L Williams % (Auto) Williams # 1.0 H Baso # Seg Neutrophils % 77.5 H Seg Neuts % (Manual) Lymphocytes % (Manual) Monocytes % (Manual) Seg Neutrophils # 10.5 H Seg Neutrophils # Man Lymphocytes # (Manual) Monocytes # (Manual) Eosinophils # (Manual) Basophils # (Manual) PT INR APTT ABG pH ABG pO2 ABG HCO3 ABG O2 Saturation ABG Base Excess ABG Hemoglobin Oxyhemoglobin Sodium Potassium Chloride Carbon Dioxide BUN Creatinine Glucose POC Glucose 152 H 107 H Lactic Acid Calcium Ionized Calcium Phosphorus Magnesium Total Bilirubin AST ALT Alkaline Phosphatase Ammonia Total Creatine Kinase CK-MB (CK-2) CK-MB (CK-2) Rel Index Total Protein Albumin Urine WBC (Auto) Vancomycin Trough Salicylates Acetaminophen Plasma/Serum Alcohol Crossmatch 01/17/20 01/17/20 01/17/20 06:47 12:16 17:21 WBC RBC Hgb Hct MCH RDW Plt Count Lymph % (Auto) Williams % (Auto) Williams # Baso # Seg Neutrophils % Seg Neuts % (Manual) Lymphocytes % (Manual) Monocytes % (Manual) Seg Neutrophils # Seg Neutrophils # Man Lymphocytes # (Manual) Monocytes # (Manual) Eosinophils # (Manual) Basophils # (Manual) PT INR APTT ABG pH ABG pO2 ABG HCO3 ABG O2 Saturation ABG Base Excess ABG Hemoglobin Oxyhemoglobin Sodium Potassium Chloride Carbon Dioxide BUN Creatinine Glucose POC Glucose 112 H 145 H 150 H Lactic Acid Calcium Ionized Calcium Phosphorus Magnesium Total Bilirubin AST ALT Alkaline Phosphatase Ammonia Total Creatine Kinase CK-MB (CK-2) CK-MB (CK-2) Rel Index Total Protein Albumin Urine WBC (Auto) Vancomycin Trough Salicylates Acetaminophen Plasma/Serum Alcohol Crossmatch 01/17/20 01/18/20 01/18/20 23:34 05:47 12:43 WBC RBC Hgb Hct MCH RDW Plt Count Lymph % (Auto) Williams % (Auto) Williams # Baso # Seg Neutrophils % Seg Neuts % (Manual) Lymphocytes % (Manual) Monocytes % (Manual) Seg Neutrophils # Seg Neutrophils # Man Lymphocytes # (Manual) Monocytes # (Manual) Eosinophils # (Manual) Basophils # (Manual) PT INR APTT ABG pH ABG pO2 ABG HCO3 ABG O2 Saturation ABG Base Excess ABG Hemoglobin Oxyhemoglobin Sodium Potassium Chloride Carbon Dioxide BUN Creatinine Glucose POC Glucose 160 H 130 H 124 H Lactic Acid Calcium Ionized Calcium Phosphorus Magnesium Total Bilirubin AST ALT Alkaline Phosphatase Ammonia Total Creatine Kinase CK-MB (CK-2) CK-MB (CK-2) Rel Index Total Protein Albumin Urine WBC (Auto) Vancomycin Trough Salicylates Acetaminophen Plasma/Serum Alcohol Crossmatch 01/18/20 01/19/20 01/19/20 18:26 00:14 06:24 WBC RBC Hgb Hct MCH RDW Plt Count Lymph % (Auto) Williams % (Auto) Williams # Baso # Seg Neutrophils % Seg Neuts % (Manual) Lymphocytes % (Manual) Monocytes % (Manual) Seg Neutrophils # Seg Neutrophils # Man Lymphocytes # (Manual) Monocytes # (Manual) Eosinophils # (Manual) Basophils # (Manual) PT INR APTT ABG pH ABG pO2 ABG HCO3 ABG O2 Saturation ABG Base Excess ABG Hemoglobin Oxyhemoglobin Sodium Potassium Chloride Carbon Dioxide BUN Creatinine Glucose POC Glucose 119 H 114 H 144 H Lactic Acid Calcium Ionized Calcium Phosphorus Magnesium Total Bilirubin AST ALT Alkaline Phosphatase Ammonia Total Creatine Kinase CK-MB (CK-2) CK-MB (CK-2) Rel Index Total Protein Albumin Urine WBC (Auto) Vancomycin Trough Salicylates Acetaminophen Plasma/Serum Alcohol Crossmatch 01/19/20 01/19/20 01/20/20 12:24 17:50 12:06 WBC RBC Hgb Hct MCH RDW Plt Count Lymph % (Auto) Williams % (Auto) Williams # Baso # Seg Neutrophils % Seg Neuts % (Manual) Lymphocytes % (Manual) Monocytes % (Manual) Seg Neutrophils # Seg Neutrophils # Man Lymphocytes # (Manual) Monocytes # (Manual) Eosinophils # (Manual) Basophils # (Manual) PT INR APTT ABG pH ABG pO2 ABG HCO3 ABG O2 Saturation ABG Base Excess ABG Hemoglobin Oxyhemoglobin Sodium Potassium Chloride Carbon Dioxide BUN Creatinine Glucose POC Glucose 132 H 144 H 135 H Lactic Acid Calcium Ionized Calcium Phosphorus Magnesium Total Bilirubin AST ALT Alkaline Phosphatase Ammonia Total Creatine Kinase CK-MB (CK-2) CK-MB (CK-2) Rel Index Total Protein Albumin Urine WBC (Auto) Vancomycin Trough Salicylates Acetaminophen Plasma/Serum Alcohol Crossmatch 01/21/20 01/21/20 01/21/20 05:46 13:02 23:49 WBC RBC Hgb Hct MCH RDW Plt Count Lymph % (Auto) Williams % (Auto) Williams # Baso # Seg Neutrophils % Seg Neuts % (Manual) Lymphocytes % (Manual) Monocytes % (Manual) Seg Neutrophils # Seg Neutrophils # Man Lymphocytes # (Manual) Monocytes # (Manual) Eosinophils # (Manual) Basophils # (Manual) PT INR APTT ABG pH ABG pO2 ABG HCO3 ABG O2 Saturation ABG Base Excess ABG Hemoglobin Oxyhemoglobin Sodium Potassium Chloride Carbon Dioxide BUN Creatinine Glucose POC Glucose 114 H 136 H 120 H Lactic Acid Calcium Ionized Calcium Phosphorus Magnesium Total Bilirubin AST ALT Alkaline Phosphatase Ammonia Total Creatine Kinase CK-MB (CK-2) CK-MB (CK-2) Rel Index Total Protein Albumin Urine WBC (Auto) Vancomycin Trough Salicylates Acetaminophen Plasma/Serum Alcohol Crossmatch 01/22/20 01/22/20 01/22/20 05:41 11:44 16:31 WBC RBC Hgb Hct MCH RDW Plt Count Lymph % (Auto) Williams % (Auto) Williams # Baso # Seg Neutrophils % Seg Neuts % (Manual) Lymphocytes % (Manual) Monocytes % (Manual) Seg Neutrophils # Seg Neutrophils # Man Lymphocytes # (Manual) Monocytes # (Manual) Eosinophils # (Manual) Basophils # (Manual) PT INR APTT ABG pH ABG pO2 ABG HCO3 ABG O2 Saturation ABG Base Excess ABG Hemoglobin Oxyhemoglobin Sodium Potassium Chloride Carbon Dioxide BUN Creatinine Glucose POC Glucose 124 H 173 H 111 H Lactic Acid Calcium Ionized Calcium Phosphorus Magnesium Total Bilirubin AST ALT Alkaline Phosphatase Ammonia Total Creatine Kinase CK-MB (CK-2) CK-MB (CK-2) Rel Index Total Protein Albumin Urine WBC (Auto) Vancomycin Trough Salicylates Acetaminophen Plasma/Serum Alcohol Crossmatch 01/22/20 01/23/20 01/23/20 23:25 05:15 12:15 WBC RBC Hgb Hct MCH RDW Plt Count Lymph % (Auto) Williams % (Auto) Williams # Baso # Seg Neutrophils % Seg Neuts % (Manual) Lymphocytes % (Manual) Monocytes % (Manual) Seg Neutrophils # Seg Neutrophils # Man Lymphocytes # (Manual) Monocytes # (Manual) Eosinophils # (Manual) Basophils # (Manual) PT INR APTT ABG pH ABG pO2 ABG HCO3 ABG O2 Saturation ABG Base Excess ABG Hemoglobin Oxyhemoglobin Sodium Potassium Chloride Carbon Dioxide BUN Creatinine Glucose POC Glucose 134 H 117 H 129 H Lactic Acid Calcium Ionized Calcium Phosphorus Magnesium Total Bilirubin AST ALT Alkaline Phosphatase Ammonia Total Creatine Kinase CK-MB (CK-2) CK-MB (CK-2) Rel Index Total Protein Albumin Urine WBC (Auto) Vancomycin Trough Salicylates Acetaminophen Plasma/Serum Alcohol Crossmatch 01/23/20 01/23/20 01/23/20 16:58 21:17 23:47 WBC RBC Hgb Hct MCH RDW Plt Count Lymph % (Auto) Williams % (Auto) Williams # Baso # Seg Neutrophils % Seg Neuts % (Manual) Lymphocytes % (Manual) Monocytes % (Manual) Seg Neutrophils # Seg Neutrophils # Man Lymphocytes # (Manual) Monocytes # (Manual) Eosinophils # (Manual) Basophils # (Manual) PT INR APTT ABG pH ABG pO2 ABG HCO3 ABG O2 Saturation ABG Base Excess ABG Hemoglobin Oxyhemoglobin Sodium Potassium Chloride Carbon Dioxide BUN Creatinine Glucose POC Glucose 156 H 185 H 156 H Lactic Acid Calcium Ionized Calcium Phosphorus Magnesium Total Bilirubin AST ALT Alkaline Phosphatase Ammonia Total Creatine Kinase CK-MB (CK-2) CK-MB (CK-2) Rel Index Total Protein Albumin Urine WBC (Auto) Vancomycin Trough Salicylates Acetaminophen Plasma/Serum Alcohol Crossmatch 01/24/20 01/24/20 01/24/20 04:47 04:47 05:59 WBC 17.8 H RBC 3.60 L Hgb Hct MCH RDW 16.2 H Plt Count 688 H Lymph % (Auto) 11.8 L Williams % (Auto) 7.5 H Williams # 1.3 H Baso # Seg Neutrophils % 79.9 H Seg Neuts % (Manual) Lymphocytes % (Manual) Monocytes % (Manual) Seg Neutrophils # 14.2 H Seg Neutrophils # Man Lymphocytes # (Manual) Monocytes # (Manual) Eosinophils # (Manual) Basophils # (Manual) PT INR APTT ABG pH ABG pO2 ABG HCO3 ABG O2 Saturation ABG Base Excess ABG Hemoglobin Oxyhemoglobin Sodium 131 L Potassium Chloride 91.2 L Carbon Dioxide BUN 22 H Creatinine 0.3 L Glucose 123 H POC Glucose 147 H Lactic Acid Calcium 10.9 H Ionized Calcium Phosphorus Magnesium Total Bilirubin AST ALT Alkaline Phosphatase Ammonia Total Creatine Kinase CK-MB (CK-2) CK-MB (CK-2) Rel Index Total Protein Albumin Urine WBC (Auto) Vancomycin Trough Salicylates Acetaminophen Plasma/Serum Alcohol Crossmatch 01/24/20 01/24/20 01/25/20 11:47 16:45 00:18 WBC RBC Hgb Hct MCH RDW Plt Count Lymph % (Auto) Williams % (Auto) Williams # Baso # Seg Neutrophils % Seg Neuts % (Manual) Lymphocytes % (Manual) Monocytes % (Manual) Seg Neutrophils # Seg Neutrophils # Man Lymphocytes # (Manual) Monocytes # (Manual) Eosinophils # (Manual) Basophils # (Manual) PT INR APTT ABG pH ABG pO2 ABG HCO3 ABG O2 Saturation ABG Base Excess ABG Hemoglobin Oxyhemoglobin Sodium Potassium Chloride Carbon Dioxide BUN Creatinine Glucose POC Glucose 114 H 108 H 119 H Lactic Acid Calcium Ionized Calcium Phosphorus Magnesium Total Bilirubin AST ALT Alkaline Phosphatase Ammonia Total Creatine Kinase CK-MB (CK-2) CK-MB (CK-2) Rel Index Total Protein Albumin Urine WBC (Auto) Vancomycin Trough Salicylates Acetaminophen Plasma/Serum Alcohol Crossmatch 01/25/20 01/25/20 01/25/20 07:18 11:58 16:56 WBC RBC Hgb Hct MCH RDW Plt Count Lymph % (Auto) Williams % (Auto) Williams # Baso # Seg Neutrophils % Seg Neuts % (Manual) Lymphocytes % (Manual) Monocytes % (Manual) Seg Neutrophils # Seg Neutrophils # Man Lymphocytes # (Manual) Monocytes # (Manual) Eosinophils # (Manual) Basophils # (Manual) PT INR APTT ABG pH ABG pO2 ABG HCO3 ABG O2 Saturation ABG Base Excess ABG Hemoglobin Oxyhemoglobin Sodium Potassium Chloride Carbon Dioxide BUN Creatinine Glucose POC Glucose 136 H 136 H 147 H Lactic Acid Calcium Ionized Calcium Phosphorus Magnesium Total Bilirubin AST ALT Alkaline Phosphatase Ammonia Total Creatine Kinase CK-MB (CK-2) CK-MB (CK-2) Rel Index Total Protein Albumin Urine WBC (Auto) Vancomycin Trough Salicylates Acetaminophen Plasma/Serum Alcohol Crossmatch 01/26/20 01/26/20 01/26/20 00:29 05:59 05:59 WBC 12.8 H RBC Hgb Hct MCH RDW 16.4 H Plt Count 743 H Lymph % (Auto) Williams % (Auto) Williams # 0.9 H Baso # Seg Neutrophils % 76.2 H Seg Neuts % (Manual) Lymphocytes % (Manual) Monocytes % (Manual) Seg Neutrophils # 9.8 H Seg Neutrophils # Man Lymphocytes # (Manual) Monocytes # (Manual) Eosinophils # (Manual) Basophils # (Manual) PT INR APTT ABG pH ABG pO2 ABG HCO3 ABG O2 Saturation ABG Base Excess ABG Hemoglobin Oxyhemoglobin Sodium 132 L Potassium Chloride 90.9 L Carbon Dioxide BUN 23 H Creatinine 0.4 L Glucose 122 H POC Glucose 107 H Lactic Acid Calcium 11.0 H Ionized Calcium Phosphorus Magnesium Total Bilirubin AST ALT Alkaline Phosphatase Ammonia Total Creatine Kinase CK-MB (CK-2) CK-MB (CK-2) Rel Index Total Protein Albumin Urine WBC (Auto) Vancomycin Trough Salicylates Acetaminophen Plasma/Serum Alcohol Crossmatch 01/26/20 01/26/20 01/26/20 06:27 12:06 16:49 WBC RBC Hgb Hct MCH RDW Plt Count Lymph % (Auto) Williams % (Auto) Williams # Baso # Seg Neutrophils % Seg Neuts % (Manual) Lymphocytes % (Manual) Monocytes % (Manual) Seg Neutrophils # Seg Neutrophils # Man Lymphocytes # (Manual) Monocytes # (Manual) Eosinophils # (Manual) Basophils # (Manual) PT INR APTT ABG pH ABG pO2 ABG HCO3 ABG O2 Saturation ABG Base Excess ABG Hemoglobin Oxyhemoglobin Sodium Potassium Chloride Carbon Dioxide BUN Creatinine Glucose POC Glucose 132 H 132 H 110 H Lactic Acid Calcium Ionized Calcium Phosphorus Magnesium Total Bilirubin AST ALT Alkaline Phosphatase Ammonia Total Creatine Kinase CK-MB (CK-2) CK-MB (CK-2) Rel Index Total Protein Albumin Urine WBC (Auto) Vancomycin Trough Salicylates Acetaminophen Plasma/Serum Alcohol Crossmatch 01/27/20 01/27/20 01/27/20 00:08 11:49 16:24 WBC RBC Hgb Hct MCH RDW Plt Count Lymph % (Auto) Williams % (Auto) Williams # Baso # Seg Neutrophils % Seg Neuts % (Manual) Lymphocytes % (Manual) Monocytes % (Manual) Seg Neutrophils # Seg Neutrophils # Man Lymphocytes # (Manual) Monocytes # (Manual) Eosinophils # (Manual) Basophils # (Manual) PT INR APTT ABG pH ABG pO2 ABG HCO3 ABG O2 Saturation ABG Base Excess ABG Hemoglobin Oxyhemoglobin Sodium Potassium Chloride Carbon Dioxide BUN Creatinine Glucose POC Glucose 107 H 119 H 129 H Lactic Acid Calcium Ionized Calcium Phosphorus Magnesium Total Bilirubin AST ALT Alkaline Phosphatase Ammonia Total Creatine Kinase CK-MB (CK-2) CK-MB (CK-2) Rel Index Total Protein Albumin Urine WBC (Auto) Vancomycin Trough Salicylates Acetaminophen Plasma/Serum Alcohol Crossmatch 01/27/20 01/28/20 01/28/20 18:28 01:00 06:22 WBC RBC Hgb Hct MCH RDW Plt Count Lymph % (Auto) Williams % (Auto) Williams # Baso # Seg Neutrophils % Seg Neuts % (Manual) Lymphocytes % (Manual) Monocytes % (Manual) Seg Neutrophils # Seg Neutrophils # Man Lymphocytes # (Manual) Monocytes # (Manual) Eosinophils # (Manual) Basophils # (Manual) PT INR APTT ABG pH ABG pO2 ABG HCO3 ABG O2 Saturation ABG Base Excess ABG Hemoglobin Oxyhemoglobin Sodium Potassium Chloride Carbon Dioxide BUN Creatinine Glucose POC Glucose 126 H 121 H 114 H Lactic Acid Calcium Ionized Calcium Phosphorus Magnesium Total Bilirubin AST ALT Alkaline Phosphatase Ammonia Total Creatine Kinase CK-MB (CK-2) CK-MB (CK-2) Rel Index Total Protein Albumin Urine WBC (Auto) Vancomycin Trough Salicylates Acetaminophen Plasma/Serum Alcohol Crossmatch 01/28/20 01/28/20 01/29/20 11:47 18:00 00:05 WBC RBC Hgb Hct MCH RDW Plt Count Lymph % (Auto) Williams % (Auto) Williams # Baso # Seg Neutrophils % Seg Neuts % (Manual) Lymphocytes % (Manual) Monocytes % (Manual) Seg Neutrophils # Seg Neutrophils # Man Lymphocytes # (Manual) Monocytes # (Manual) Eosinophils # (Manual) Basophils # (Manual) PT INR APTT ABG pH ABG pO2 ABG HCO3 ABG O2 Saturation ABG Base Excess ABG Hemoglobin Oxyhemoglobin Sodium Potassium Chloride Carbon Dioxide BUN Creatinine Glucose POC Glucose 106 H 117 H 127 H Lactic Acid Calcium Ionized Calcium Phosphorus Magnesium Total Bilirubin AST ALT Alkaline Phosphatase Ammonia Total Creatine Kinase CK-MB (CK-2) CK-MB (CK-2) Rel Index Total Protein Albumin Urine WBC (Auto) Vancomycin Trough Salicylates Acetaminophen Plasma/Serum Alcohol Crossmatch 01/29/20 01/29/20 01/29/20 06:04 11:40 16:38 WBC RBC Hgb Hct MCH RDW Plt Count Lymph % (Auto) Williams % (Auto) Williams # Baso # Seg Neutrophils % Seg Neuts % (Manual) Lymphocytes % (Manual) Monocytes % (Manual) Seg Neutrophils # Seg Neutrophils # Man Lymphocytes # (Manual) Monocytes # (Manual) Eosinophils # (Manual) Basophils # (Manual) PT INR APTT ABG pH ABG pO2 ABG HCO3 ABG O2 Saturation ABG Base Excess ABG Hemoglobin Oxyhemoglobin Sodium Potassium Chloride Carbon Dioxide BUN Creatinine Glucose POC Glucose 147 H 139 H 143 H Lactic Acid Calcium Ionized Calcium Phosphorus Magnesium Total Bilirubin AST ALT Alkaline Phosphatase Ammonia Total Creatine Kinase CK-MB (CK-2) CK-MB (CK-2) Rel Index Total Protein Albumin Urine WBC (Auto) Vancomycin Trough Salicylates Acetaminophen Plasma/Serum Alcohol Crossmatch 01/29/20 01/30/20 01/30/20 23:46 06:43 12:07 WBC RBC Hgb Hct MCH RDW Plt Count Lymph % (Auto) Williams % (Auto) Williams # Baso # Seg Neutrophils % Seg Neuts % (Manual) Lymphocytes % (Manual) Monocytes % (Manual) Seg Neutrophils # Seg Neutrophils # Man Lymphocytes # (Manual) Monocytes # (Manual) Eosinophils # (Manual) Basophils # (Manual) PT INR APTT ABG pH ABG pO2 ABG HCO3 ABG O2 Saturation ABG Base Excess ABG Hemoglobin Oxyhemoglobin Sodium Potassium Chloride Carbon Dioxide BUN Creatinine Glucose POC Glucose 122 H 122 H 134 H Lactic Acid Calcium Ionized Calcium Phosphorus Magnesium Total Bilirubin AST ALT Alkaline Phosphatase Ammonia Total Creatine Kinase CK-MB (CK-2) CK-MB (CK-2) Rel Index Total Protein Albumin Urine WBC (Auto) Vancomycin Trough Salicylates Acetaminophen Plasma/Serum Alcohol Crossmatch 01/30/20 01/31/20 01/31/20 17:59 00:52 05:54 WBC RBC Hgb Hct MCH RDW Plt Count Lymph % (Auto) Williams % (Auto) Williams # Baso # Seg Neutrophils % Seg Neuts % (Manual) Lymphocytes % (Manual) Monocytes % (Manual) Seg Neutrophils # Seg Neutrophils # Man Lymphocytes # (Manual) Monocytes # (Manual) Eosinophils # (Manual) Basophils # (Manual) PT INR APTT ABG pH ABG pO2 ABG HCO3 ABG O2 Saturation ABG Base Excess ABG Hemoglobin Oxyhemoglobin Sodium Potassium Chloride Carbon Dioxide BUN Creatinine Glucose POC Glucose 116 H 127 H 127 H Lactic Acid Calcium Ionized Calcium Phosphorus Magnesium Total Bilirubin AST ALT Alkaline Phosphatase Ammonia Total Creatine Kinase CK-MB (CK-2) CK-MB (CK-2) Rel Index Total Protein Albumin Urine WBC (Auto) Vancomycin Trough Salicylates Acetaminophen Plasma/Serum Alcohol Crossmatch 01/31/20 02/01/20 02/01/20 12:20 00:48 12:21 WBC RBC Hgb Hct MCH RDW Plt Count Lymph % (Auto) Williams % (Auto) Williams # Baso # Seg Neutrophils % Seg Neuts % (Manual) Lymphocytes % (Manual) Monocytes % (Manual) Seg Neutrophils # Seg Neutrophils # Man Lymphocytes # (Manual) Monocytes # (Manual) Eosinophils # (Manual) Basophils # (Manual) PT INR APTT ABG pH ABG pO2 ABG HCO3 ABG O2 Saturation ABG Base Excess ABG Hemoglobin Oxyhemoglobin Sodium Potassium Chloride Carbon Dioxide BUN Creatinine Glucose POC Glucose 126 H 154 H 123 H Lactic Acid Calcium Ionized Calcium Phosphorus Magnesium Total Bilirubin AST ALT Alkaline Phosphatase Ammonia Total Creatine Kinase CK-MB (CK-2) CK-MB (CK-2) Rel Index Total Protein Albumin Urine WBC (Auto) Vancomycin Trough Salicylates Acetaminophen Plasma/Serum Alcohol Crossmatch 02/01/20 02/02/20 02/02/20 23:58 06:08 11:50 WBC RBC Hgb Hct MCH RDW Plt Count Lymph % (Auto) Williams % (Auto) Williams # Baso # Seg Neutrophils % Seg Neuts % (Manual) Lymphocytes % (Manual) Monocytes % (Manual) Seg Neutrophils # Seg Neutrophils # Man Lymphocytes # (Manual) Monocytes # (Manual) Eosinophils # (Manual) Basophils # (Manual) PT INR APTT ABG pH ABG pO2 ABG HCO3 ABG O2 Saturation ABG Base Excess ABG Hemoglobin Oxyhemoglobin Sodium Potassium Chloride Carbon Dioxide BUN Creatinine Glucose POC Glucose 125 H 144 H 131 H Lactic Acid Calcium Ionized Calcium Phosphorus Magnesium Total Bilirubin AST ALT Alkaline Phosphatase Ammonia Total Creatine Kinase CK-MB (CK-2) CK-MB (CK-2) Rel Index Total Protein Albumin Urine WBC (Auto) Vancomycin Trough Salicylates Acetaminophen Plasma/Serum Alcohol Crossmatch 02/02/20 02/03/20 02/03/20 17:53 00:14 05:47 WBC RBC Hgb Hct MCH RDW Plt Count Lymph % (Auto) Williams % (Auto) Williams # Baso # Seg Neutrophils % Seg Neuts % (Manual) Lymphocytes % (Manual) Monocytes % (Manual) Seg Neutrophils # Seg Neutrophils # Man Lymphocytes # (Manual) Monocytes # (Manual) Eosinophils # (Manual) Basophils # (Manual) PT INR APTT ABG pH ABG pO2 ABG HCO3 ABG O2 Saturation ABG Base Excess ABG Hemoglobin Oxyhemoglobin Sodium Potassium Chloride Carbon Dioxide BUN Creatinine Glucose POC Glucose 108 H 122 H 118 H Lactic Acid Calcium Ionized Calcium Phosphorus Magnesium Total Bilirubin AST ALT Alkaline Phosphatase Ammonia Total Creatine Kinase CK-MB (CK-2) CK-MB (CK-2) Rel Index Total Protein Albumin Urine WBC (Auto) Vancomycin Trough Salicylates Acetaminophen Plasma/Serum Alcohol Crossmatch 02/03/20 02/03/20 02/03/20 05:59 05:59 11:49 WBC RBC 3.48 L Hgb Hct 29.9 L MCH RDW 16.2 H Plt Count 707 H Lymph % (Auto) Williams % (Auto) 9.3 H Williams # 0.9 H Baso # Seg Neutrophils % Seg Neuts % (Manual) Lymphocytes % (Manual) Monocytes % (Manual) Seg Neutrophils # Seg Neutrophils # Man Lymphocytes # (Manual) Monocytes # (Manual) Eosinophils # (Manual) Basophils # (Manual) PT INR APTT ABG pH ABG pO2 ABG HCO3 ABG O2 Saturation ABG Base Excess ABG Hemoglobin Oxyhemoglobin Sodium 136 L Potassium Chloride 93.4 L Carbon Dioxide BUN 20 H Creatinine 0.5 L Glucose 101 H POC Glucose 133 H Lactic Acid Calcium 10.8 H Ionized Calcium Phosphorus Magnesium Total Bilirubin AST ALT Alkaline Phosphatase Ammonia Total Creatine Kinase CK-MB (CK-2) CK-MB (CK-2) Rel Index Total Protein Albumin Urine WBC (Auto) Vancomycin Trough Salicylates Acetaminophen Plasma/Serum Alcohol Crossmatch 02/03/20 02/04/20 02/04/20 23:19 05:37 23:56 WBC RBC Hgb Hct MCH RDW Plt Count Lymph % (Auto) Williams % (Auto) Williams # Baso # Seg Neutrophils % Seg Neuts % (Manual) Lymphocytes % (Manual) Monocytes % (Manual) Seg Neutrophils # Seg Neutrophils # Man Lymphocytes # (Manual) Monocytes # (Manual) Eosinophils # (Manual) Basophils # (Manual) PT INR APTT ABG pH ABG pO2 ABG HCO3 ABG O2 Saturation ABG Base Excess ABG Hemoglobin Oxyhemoglobin Sodium Potassium Chloride Carbon Dioxide BUN Creatinine Glucose POC Glucose 135 H 108 H 158 H Lactic Acid Calcium Ionized Calcium Phosphorus Magnesium Total Bilirubin AST ALT Alkaline Phosphatase Ammonia Total Creatine Kinase CK-MB (CK-2) CK-MB (CK-2) Rel Index Total Protein Albumin Urine WBC (Auto) Vancomycin Trough Salicylates Acetaminophen Plasma/Serum Alcohol Crossmatch 02/05/20 02/05/20 02/06/20 05:33 23:24 05:50 WBC RBC Hgb Hct MCH RDW Plt Count Lymph % (Auto) Williams % (Auto) Williams # Baso # Seg Neutrophils % Seg Neuts % (Manual) Lymphocytes % (Manual) Monocytes % (Manual) Seg Neutrophils # Seg Neutrophils # Man Lymphocytes # (Manual) Monocytes # (Manual) Eosinophils # (Manual) Basophils # (Manual) PT INR APTT ABG pH ABG pO2 ABG HCO3 ABG O2 Saturation ABG Base Excess ABG Hemoglobin Oxyhemoglobin Sodium Potassium Chloride Carbon Dioxide BUN Creatinine Glucose POC Glucose 152 H 158 H 110 H Lactic Acid Calcium Ionized Calcium Phosphorus Magnesium Total Bilirubin AST ALT Alkaline Phosphatase Ammonia Total Creatine Kinase CK-MB (CK-2) CK-MB (CK-2) Rel Index Total Protein Albumin Urine WBC (Auto) Vancomycin Trough Salicylates Acetaminophen Plasma/Serum Alcohol Crossmatch 02/06/20 02/07/20 02/07/20 16:03 00:13 05:27 WBC RBC Hgb Hct MCH RDW Plt Count Lymph % (Auto) Williams % (Auto) Williams # Baso # Seg Neutrophils % Seg Neuts % (Manual) Lymphocytes % (Manual) Monocytes % (Manual) Seg Neutrophils # Seg Neutrophils # Man Lymphocytes # (Manual) Monocytes # (Manual) Eosinophils # (Manual) Basophils # (Manual) PT INR APTT ABG pH ABG pO2 ABG HCO3 ABG O2 Saturation ABG Base Excess ABG Hemoglobin Oxyhemoglobin Sodium Potassium Chloride Carbon Dioxide BUN Creatinine Glucose POC Glucose 130 H 115 H 115 H Lactic Acid Calcium Ionized Calcium Phosphorus Magnesium Total Bilirubin AST ALT Alkaline Phosphatase Ammonia Total Creatine Kinase CK-MB (CK-2) CK-MB (CK-2) Rel Index Total Protein Albumin Urine WBC (Auto) Vancomycin Trough Salicylates Acetaminophen Plasma/Serum Alcohol Crossmatch 02/07/20 02/07/20 02/08/20 11:42 17:23 00:37 WBC RBC Hgb Hct MCH RDW Plt Count Lymph % (Auto) Williams % (Auto) Williams # Baso # Seg Neutrophils % Seg Neuts % (Manual) Lymphocytes % (Manual) Monocytes % (Manual) Seg Neutrophils # Seg Neutrophils # Man Lymphocytes # (Manual) Monocytes # (Manual) Eosinophils # (Manual) Basophils # (Manual) PT INR APTT ABG pH ABG pO2 ABG HCO3 ABG O2 Saturation ABG Base Excess ABG Hemoglobin Oxyhemoglobin Sodium Potassium Chloride Carbon Dioxide BUN Creatinine Glucose POC Glucose 113 H 114 H 136 H Lactic Acid Calcium Ionized Calcium Phosphorus Magnesium Total Bilirubin AST ALT Alkaline Phosphatase Ammonia Total Creatine Kinase CK-MB (CK-2) CK-MB (CK-2) Rel Index Total Protein Albumin Urine WBC (Auto) Vancomycin Trough Salicylates Acetaminophen Plasma/Serum Alcohol Crossmatch 02/08/20 02/08/20 02/08/20 08:52 11:42 17:02 WBC RBC Hgb Hct MCH RDW Plt Count Lymph % (Auto) Williams % (Auto) Williams # Baso # Seg Neutrophils % Seg Neuts % (Manual) Lymphocytes % (Manual) Monocytes % (Manual) Seg Neutrophils # Seg Neutrophils # Man Lymphocytes # (Manual) Monocytes # (Manual) Eosinophils # (Manual) Basophils # (Manual) PT INR APTT ABG pH ABG pO2 ABG HCO3 ABG O2 Saturation ABG Base Excess ABG Hemoglobin Oxyhemoglobin Sodium 136 L Potassium Chloride 95.7 L Carbon Dioxide BUN 21 H Creatinine 0.4 L Glucose POC Glucose 128 H 145 H Lactic Acid Calcium 10.4 H Ionized Calcium Phosphorus Magnesium Total Bilirubin AST ALT Alkaline Phosphatase Ammonia Total Creatine Kinase CK-MB (CK-2) CK-MB (CK-2) Rel Index Total Protein Albumin Urine WBC (Auto) Vancomycin Trough Salicylates Acetaminophen Plasma/Serum Alcohol Crossmatch 02/09/20 02/09/20 02/09/20 01:05 11:52 16:19 WBC RBC Hgb Hct MCH RDW Plt Count Lymph % (Auto) Williams % (Auto) Williams # Baso # Seg Neutrophils % Seg Neuts % (Manual) Lymphocytes % (Manual) Monocytes % (Manual) Seg Neutrophils # Seg Neutrophils # Man Lymphocytes # (Manual) Monocytes # (Manual) Eosinophils # (Manual) Basophils # (Manual) PT INR APTT ABG pH ABG pO2 ABG HCO3 ABG O2 Saturation ABG Base Excess ABG Hemoglobin Oxyhemoglobin Sodium Potassium Chloride Carbon Dioxide BUN Creatinine Glucose POC Glucose 117 H 141 H 113 H Lactic Acid Calcium Ionized Calcium Phosphorus Magnesium Total Bilirubin AST ALT Alkaline Phosphatase Ammonia Total Creatine Kinase CK-MB (CK-2) CK-MB (CK-2) Rel Index Total Protein Albumin Urine WBC (Auto) Vancomycin Trough Salicylates Acetaminophen Plasma/Serum Alcohol Crossmatch 02/10/20 02/10/20 02/10/20 05:25 12:50 17:08 WBC RBC Hgb Hct MCH RDW Plt Count Lymph % (Auto) Williams % (Auto) Williams # Baso # Seg Neutrophils % Seg Neuts % (Manual) Lymphocytes % (Manual) Monocytes % (Manual) Seg Neutrophils # Seg Neutrophils # Man Lymphocytes # (Manual) Monocytes # (Manual) Eosinophils # (Manual) Basophils # (Manual) PT INR APTT ABG pH ABG pO2 ABG HCO3 ABG O2 Saturation ABG Base Excess ABG Hemoglobin Oxyhemoglobin Sodium Potassium Chloride Carbon Dioxide BUN Creatinine Glucose POC Glucose 136 H 127 H 111 H Lactic Acid Calcium Ionized Calcium Phosphorus Magnesium Total Bilirubin AST ALT Alkaline Phosphatase Ammonia Total Creatine Kinase CK-MB (CK-2) CK-MB (CK-2) Rel Index Total Protein Albumin Urine WBC (Auto) Vancomycin Trough Salicylates Acetaminophen Plasma/Serum Alcohol Crossmatch 02/10/20 02/11/20 02/11/20 23:55 06:11 12:07 WBC RBC Hgb Hct MCH RDW Plt Count Lymph % (Auto) Williams % (Auto) Williams # Baso # Seg Neutrophils % Seg Neuts % (Manual) Lymphocytes % (Manual) Monocytes % (Manual) Seg Neutrophils # Seg Neutrophils # Man Lymphocytes # (Manual) Monocytes # (Manual) Eosinophils # (Manual) Basophils # (Manual) PT INR APTT ABG pH ABG pO2 ABG HCO3 ABG O2 Saturation ABG Base Excess ABG Hemoglobin Oxyhemoglobin Sodium Potassium Chloride Carbon Dioxide BUN Creatinine Glucose POC Glucose 129 H 128 H 141 H Lactic Acid Calcium Ionized Calcium Phosphorus Magnesium Total Bilirubin AST ALT Alkaline Phosphatase Ammonia Total Creatine Kinase CK-MB (CK-2) CK-MB (CK-2) Rel Index Total Protein Albumin Urine WBC (Auto) Vancomycin Trough Salicylates Acetaminophen Plasma/Serum Alcohol Crossmatch 02/11/20 02/12/20 02/13/20 18:22 02:39 06:45 WBC RBC Hgb Hct MCH RDW Plt Count Lymph % (Auto) Williams % (Auto) Williams # Baso # Seg Neutrophils % Seg Neuts % (Manual) Lymphocytes % (Manual) Monocytes % (Manual) Seg Neutrophils # Seg Neutrophils # Man Lymphocytes # (Manual) Monocytes # (Manual) Eosinophils # (Manual) Basophils # (Manual) PT INR APTT ABG pH ABG pO2 ABG HCO3 ABG O2 Saturation ABG Base Excess ABG Hemoglobin Oxyhemoglobin Sodium Potassium Chloride Carbon Dioxide BUN Creatinine Glucose POC Glucose 118 H 107 H 124 H Lactic Acid Calcium Ionized Calcium Phosphorus Magnesium Total Bilirubin AST ALT Alkaline Phosphatase Ammonia Total Creatine Kinase CK-MB (CK-2) CK-MB (CK-2) Rel Index Total Protein Albumin Urine WBC (Auto) Vancomycin Trough Salicylates Acetaminophen Plasma/Serum Alcohol Crossmatch 02/13/20 02/13/20 02/14/20 12:26 18:19 00:21 WBC RBC Hgb Hct MCH RDW Plt Count Lymph % (Auto) Williams % (Auto) Williams # Baso # Seg Neutrophils % Seg Neuts % (Manual) Lymphocytes % (Manual) Monocytes % (Manual) Seg Neutrophils # Seg Neutrophils # Man Lymphocytes # (Manual) Monocytes # (Manual) Eosinophils # (Manual) Basophils # (Manual) PT INR APTT ABG pH ABG pO2 ABG HCO3 ABG O2 Saturation ABG Base Excess ABG Hemoglobin Oxyhemoglobin Sodium Potassium Chloride Carbon Dioxide BUN Creatinine Glucose POC Glucose 124 H 118 H 130 H Lactic Acid Calcium Ionized Calcium Phosphorus Magnesium Total Bilirubin AST ALT Alkaline Phosphatase Ammonia Total Creatine Kinase CK-MB (CK-2) CK-MB (CK-2) Rel Index Total Protein Albumin Urine WBC (Auto) Vancomycin Trough Salicylates Acetaminophen Plasma/Serum Alcohol Crossmatch 02/14/20 02/14/20 02/16/20 11:19 16:16 00:58 WBC RBC Hgb Hct MCH RDW Plt Count Lymph % (Auto) Williams % (Auto) Williams # Baso # Seg Neutrophils % Seg Neuts % (Manual) Lymphocytes % (Manual) Monocytes % (Manual) Seg Neutrophils # Seg Neutrophils # Man Lymphocytes # (Manual) Monocytes # (Manual) Eosinophils # (Manual) Basophils # (Manual) PT INR APTT ABG pH ABG pO2 ABG HCO3 ABG O2 Saturation ABG Base Excess ABG Hemoglobin Oxyhemoglobin Sodium Potassium Chloride Carbon Dioxide BUN Creatinine Glucose POC Glucose 135 H 119 H 121 H Lactic Acid Calcium Ionized Calcium Phosphorus Magnesium Total Bilirubin AST ALT Alkaline Phosphatase Ammonia Total Creatine Kinase CK-MB (CK-2) CK-MB (CK-2) Rel Index Total Protein Albumin Urine WBC (Auto) Vancomycin Trough Salicylates Acetaminophen Plasma/Serum Alcohol Crossmatch 02/16/20 02/16/20 02/16/20 12:12 18:22 23:51 WBC RBC Hgb Hct MCH RDW Plt Count Lymph % (Auto) Williams % (Auto) Williams # Baso # Seg Neutrophils % Seg Neuts % (Manual) Lymphocytes % (Manual) Monocytes % (Manual) Seg Neutrophils # Seg Neutrophils # Man Lymphocytes # (Manual) Monocytes # (Manual) Eosinophils # (Manual) Basophils # (Manual) PT INR APTT ABG pH ABG pO2 ABG HCO3 ABG O2 Saturation ABG Base Excess ABG Hemoglobin Oxyhemoglobin Sodium Potassium Chloride Carbon Dioxide BUN Creatinine Glucose POC Glucose 107 H 106 H 128 H Lactic Acid Calcium Ionized Calcium Phosphorus Magnesium Total Bilirubin AST ALT Alkaline Phosphatase Ammonia Total Creatine Kinase CK-MB (CK-2) CK-MB (CK-2) Rel Index Total Protein Albumin Urine WBC (Auto) Vancomycin Trough Salicylates Acetaminophen Plasma/Serum Alcohol Crossmatch 02/17/20 02/17/20 02/17/20 05:50 07:57 07:57 WBC 12.6 H RBC 3.52 L Hgb Hct MCH RDW 15.3 H Plt Count 643 H Lymph % (Auto) Williams % (Auto) 8.0 H Williams # 1.0 H Baso # Seg Neutrophils % Seg Neuts % (Manual) Lymphocytes % (Manual) Monocytes % (Manual) Seg Neutrophils # 8.5 H Seg Neutrophils # Man Lymphocytes # (Manual) Monocytes # (Manual) Eosinophils # (Manual) Basophils # (Manual) PT INR APTT ABG pH ABG pO2 ABG HCO3 ABG O2 Saturation ABG Base Excess ABG Hemoglobin Oxyhemoglobin Sodium Potassium Chloride 96.9 L Carbon Dioxide BUN 21 H Creatinine 0.4 L Glucose 113 H POC Glucose 116 H Lactic Acid Calcium 10.5 H Ionized Calcium Phosphorus Magnesium Total Bilirubin AST ALT Alkaline Phosphatase Ammonia Total Creatine Kinase CK-MB (CK-2) CK-MB (CK-2) Rel Index Total Protein Albumin Urine WBC (Auto) Vancomycin Trough Salicylates Acetaminophen Plasma/Serum Alcohol Crossmatch 02/17/20 02/17/20 02/18/20 12:05 18:16 00:13 WBC RBC Hgb Hct MCH RDW Plt Count Lymph % (Auto) Williams % (Auto) Williams # Baso # Seg Neutrophils % Seg Neuts % (Manual) Lymphocytes % (Manual) Monocytes % (Manual) Seg Neutrophils # Seg Neutrophils # Man Lymphocytes # (Manual) Monocytes # (Manual) Eosinophils # (Manual) Basophils # (Manual) PT INR APTT ABG pH ABG pO2 ABG HCO3 ABG O2 Saturation ABG Base Excess ABG Hemoglobin Oxyhemoglobin Sodium Potassium Chloride Carbon Dioxide BUN Creatinine Glucose POC Glucose 139 H 127 H 144 H Lactic Acid Calcium Ionized Calcium Phosphorus Magnesium Total Bilirubin AST ALT Alkaline Phosphatase Ammonia Total Creatine Kinase CK-MB (CK-2) CK-MB (CK-2) Rel Index Total Protein Albumin Urine WBC (Auto) Vancomycin Trough Salicylates Acetaminophen Plasma/Serum Alcohol Crossmatch 02/18/20 02/18/20 02/19/20 17:41 23:28 05:17 WBC RBC Hgb Hct MCH RDW Plt Count Lymph % (Auto) Williams % (Auto) Williams # Baso # Seg Neutrophils % Seg Neuts % (Manual) Lymphocytes % (Manual) Monocytes % (Manual) Seg Neutrophils # Seg Neutrophils # Man Lymphocytes # (Manual) Monocytes # (Manual) Eosinophils # (Manual) Basophils # (Manual) PT INR APTT ABG pH ABG pO2 ABG HCO3 ABG O2 Saturation ABG Base Excess ABG Hemoglobin Oxyhemoglobin Sodium Potassium Chloride Carbon Dioxide BUN Creatinine Glucose POC Glucose 118 H 166 H 116 H Lactic Acid Calcium Ionized Calcium Phosphorus Magnesium Total Bilirubin AST ALT Alkaline Phosphatase Ammonia Total Creatine Kinase CK-MB (CK-2) CK-MB (CK-2) Rel Index Total Protein Albumin Urine WBC (Auto) Vancomycin Trough Salicylates Acetaminophen Plasma/Serum Alcohol Crossmatch 02/19/20 02/19/20 02/20/20 12:33 17:02 00:12 WBC RBC Hgb Hct MCH RDW Plt Count Lymph % (Auto) Williams % (Auto) Williams # Baso # Seg Neutrophils % Seg Neuts % (Manual) Lymphocytes % (Manual) Monocytes % (Manual) Seg Neutrophils # Seg Neutrophils # Man Lymphocytes # (Manual) Monocytes # (Manual) Eosinophils # (Manual) Basophils # (Manual) PT INR APTT ABG pH ABG pO2 ABG HCO3 ABG O2 Saturation ABG Base Excess ABG Hemoglobin Oxyhemoglobin Sodium Potassium Chloride Carbon Dioxide BUN Creatinine Glucose POC Glucose 115 H 108 H 153 H Lactic Acid Calcium Ionized Calcium Phosphorus Magnesium Total Bilirubin AST ALT Alkaline Phosphatase Ammonia Total Creatine Kinase CK-MB (CK-2) CK-MB (CK-2) Rel Index Total Protein Albumin Urine WBC (Auto) Vancomycin Trough Salicylates Acetaminophen Plasma/Serum Alcohol Crossmatch 02/20/20 02/20/20 02/21/20 12:00 23:13 05:07 WBC RBC Hgb Hct MCH RDW Plt Count Lymph % (Auto) Williams % (Auto) Williams # Baso # Seg Neutrophils % Seg Neuts % (Manual) Lymphocytes % (Manual) Monocytes % (Manual) Seg Neutrophils # Seg Neutrophils # Man Lymphocytes # (Manual) Monocytes # (Manual) Eosinophils # (Manual) Basophils # (Manual) PT INR APTT ABG pH ABG pO2 ABG HCO3 ABG O2 Saturation ABG Base Excess ABG Hemoglobin Oxyhemoglobin Sodium Potassium Chloride Carbon Dioxide BUN Creatinine Glucose POC Glucose 171 H 129 H 116 H Lactic Acid Calcium Ionized Calcium Phosphorus Magnesium Total Bilirubin AST ALT Alkaline Phosphatase Ammonia Total Creatine Kinase CK-MB (CK-2) CK-MB (CK-2) Rel Index Total Protein Albumin Urine WBC (Auto) Vancomycin Trough Salicylates Acetaminophen Plasma/Serum Alcohol Crossmatch 02/21/20 02/22/20 02/22/20 12:15 00:42 06:30 WBC RBC Hgb Hct MCH RDW Plt Count Lymph % (Auto) Williams % (Auto) Williams # Baso # Seg Neutrophils % Seg Neuts % (Manual) Lymphocytes % (Manual) Monocytes % (Manual) Seg Neutrophils # Seg Neutrophils # Man Lymphocytes # (Manual) Monocytes # (Manual) Eosinophils # (Manual) Basophils # (Manual) PT INR APTT ABG pH ABG pO2 ABG HCO3 ABG O2 Saturation ABG Base Excess ABG Hemoglobin Oxyhemoglobin Sodium Potassium Chloride Carbon Dioxide BUN Creatinine Glucose POC Glucose 124 H 142 H 117 H Lactic Acid Calcium Ionized Calcium Phosphorus Magnesium Total Bilirubin AST ALT Alkaline Phosphatase Ammonia Total Creatine Kinase CK-MB (CK-2) CK-MB (CK-2) Rel Index Total Protein Albumin Urine WBC (Auto) Vancomycin Trough Salicylates Acetaminophen Plasma/Serum Alcohol Crossmatch 02/22/20 02/22/20 02/23/20 12:20 17:55 12:46 WBC RBC Hgb Hct MCH RDW Plt Count Lymph % (Auto) Williams % (Auto) Williams # Baso # Seg Neutrophils % Seg Neuts % (Manual) Lymphocytes % (Manual) Monocytes % (Manual) Seg Neutrophils # Seg Neutrophils # Man Lymphocytes # (Manual) Monocytes # (Manual) Eosinophils # (Manual) Basophils # (Manual) PT INR APTT ABG pH ABG pO2 ABG HCO3 ABG O2 Saturation ABG Base Excess ABG Hemoglobin Oxyhemoglobin Sodium Potassium Chloride Carbon Dioxide BUN Creatinine Glucose POC Glucose 121 H 157 H 112 H Lactic Acid Calcium Ionized Calcium Phosphorus Magnesium Total Bilirubin AST ALT Alkaline Phosphatase Ammonia Total Creatine Kinase CK-MB (CK-2) CK-MB (CK-2) Rel Index Total Protein Albumin Urine WBC (Auto) Vancomycin Trough Salicylates Acetaminophen Plasma/Serum Alcohol Crossmatch 02/23/20 02/24/20 02/24/20 16:47 00:38 07:00 WBC RBC Hgb Hct MCH RDW Plt Count Lymph % (Auto) Williams % (Auto) Williams # Baso # Seg Neutrophils % Seg Neuts % (Manual) Lymphocytes % (Manual) Monocytes % (Manual) Seg Neutrophils # Seg Neutrophils # Man Lymphocytes # (Manual) Monocytes # (Manual) Eosinophils # (Manual) Basophils # (Manual) PT INR APTT ABG pH ABG pO2 ABG HCO3 ABG O2 Saturation ABG Base Excess ABG Hemoglobin Oxyhemoglobin Sodium Potassium Chloride Carbon Dioxide BUN Creatinine Glucose POC Glucose 142 H 138 H 118 H Lactic Acid Calcium Ionized Calcium Phosphorus Magnesium Total Bilirubin AST ALT Alkaline Phosphatase Ammonia Total Creatine Kinase CK-MB (CK-2) CK-MB (CK-2) Rel Index Total Protein Albumin Urine WBC (Auto) Vancomycin Trough Salicylates Acetaminophen Plasma/Serum Alcohol Crossmatch 02/24/20 02/24/20 02/25/20 11:41 18:33 18:24 WBC RBC Hgb Hct MCH RDW Plt Count Lymph % (Auto) Williams % (Auto) Williams # Baso # Seg Neutrophils % Seg Neuts % (Manual) Lymphocytes % (Manual) Monocytes % (Manual) Seg Neutrophils # Seg Neutrophils # Man Lymphocytes # (Manual) Monocytes # (Manual) Eosinophils # (Manual) Basophils # (Manual) PT INR APTT ABG pH ABG pO2 ABG HCO3 ABG O2 Saturation ABG Base Excess ABG Hemoglobin Oxyhemoglobin Sodium Potassium Chloride Carbon Dioxide BUN Creatinine Glucose POC Glucose 152 H 126 H 120 H Lactic Acid Calcium Ionized Calcium Phosphorus Magnesium Total Bilirubin AST ALT Alkaline Phosphatase Ammonia Total Creatine Kinase CK-MB (CK-2) CK-MB (CK-2) Rel Index Total Protein Albumin Urine WBC (Auto) Vancomycin Trough Salicylates Acetaminophen Plasma/Serum Alcohol Crossmatch 02/25/20 02/26/20 02/26/20 23:40 05:46 11:32 WBC RBC Hgb Hct MCH RDW Plt Count Lymph % (Auto) Williams % (Auto) Williams # Baso # Seg Neutrophils % Seg Neuts % (Manual) Lymphocytes % (Manual) Monocytes % (Manual) Seg Neutrophils # Seg Neutrophils # Man Lymphocytes # (Manual) Monocytes # (Manual) Eosinophils # (Manual) Basophils # (Manual) PT INR APTT ABG pH ABG pO2 ABG HCO3 ABG O2 Saturation ABG Base Excess ABG Hemoglobin Oxyhemoglobin Sodium Potassium Chloride Carbon Dioxide BUN Creatinine Glucose POC Glucose 114 H 113 H 106 H Lactic Acid Calcium Ionized Calcium Phosphorus Magnesium Total Bilirubin AST ALT Alkaline Phosphatase Ammonia Total Creatine Kinase CK-MB (CK-2) CK-MB (CK-2) Rel Index Total Protein Albumin Urine WBC (Auto) Vancomycin Trough Salicylates Acetaminophen Plasma/Serum Alcohol Crossmatch 02/26/20 02/27/20 02/27/20 16:14 11:53 17:54 WBC RBC Hgb Hct MCH RDW Plt Count Lymph % (Auto) Williams % (Auto) Williams # Baso # Seg Neutrophils % Seg Neuts % (Manual) Lymphocytes % (Manual) Monocytes % (Manual) Seg Neutrophils # Seg Neutrophils # Man Lymphocytes # (Manual) Monocytes # (Manual) Eosinophils # (Manual) Basophils # (Manual) PT INR APTT ABG pH ABG pO2 ABG HCO3 ABG O2 Saturation ABG Base Excess ABG Hemoglobin Oxyhemoglobin Sodium Potassium Chloride Carbon Dioxide BUN Creatinine Glucose POC Glucose 123 H 134 H 119 H Lactic Acid Calcium Ionized Calcium Phosphorus Magnesium Total Bilirubin AST ALT Alkaline Phosphatase Ammonia Total Creatine Kinase CK-MB (CK-2) CK-MB (CK-2) Rel Index Total Protein Albumin Urine WBC (Auto) Vancomycin Trough Salicylates Acetaminophen Plasma/Serum Alcohol Crossmatch 02/27/20 02/28/20 02/28/20 23:51 03:40 03:40 WBC RBC 3.58 L Hgb Hct MCH RDW Plt Count 575 H Lymph % (Auto) Williams % (Auto) 9.4 H Williams # 1.0 H Baso # Seg Neutrophils % Seg Neuts % (Manual) Lymphocytes % (Manual) Monocytes % (Manual) Seg Neutrophils # Seg Neutrophils # Man Lymphocytes # (Manual) Monocytes # (Manual) Eosinophils # (Manual) Basophils # (Manual) PT INR APTT ABG pH ABG pO2 ABG HCO3 ABG O2 Saturation ABG Base Excess ABG Hemoglobin Oxyhemoglobin Sodium Potassium Chloride Carbon Dioxide BUN 23 H Creatinine 0.5 L Glucose 114 H POC Glucose 138 H Lactic Acid Calcium Ionized Calcium Phosphorus Magnesium Total Bilirubin AST ALT Alkaline Phosphatase Ammonia Total Creatine Kinase CK-MB (CK-2) CK-MB (CK-2) Rel Index Total Protein Albumin Urine WBC (Auto) Vancomycin Trough Salicylates Acetaminophen Plasma/Serum Alcohol Crossmatch 02/28/20 02/28/20 02/29/20 12:37 18:38 05:50 WBC RBC Hgb Hct MCH RDW Plt Count Lymph % (Auto) Williams % (Auto) Williams # Baso # Seg Neutrophils % Seg Neuts % (Manual) Lymphocytes % (Manual) Monocytes % (Manual) Seg Neutrophils # Seg Neutrophils # Man Lymphocytes # (Manual) Monocytes # (Manual) Eosinophils # (Manual) Basophils # (Manual) PT INR APTT ABG pH ABG pO2 ABG HCO3 ABG O2 Saturation ABG Base Excess ABG Hemoglobin Oxyhemoglobin Sodium Potassium Chloride Carbon Dioxide BUN Creatinine Glucose POC Glucose 115 H 120 H 114 H Lactic Acid Calcium Ionized Calcium Phosphorus Magnesium Total Bilirubin AST ALT Alkaline Phosphatase Ammonia Total Creatine Kinase CK-MB (CK-2) CK-MB (CK-2) Rel Index Total Protein Albumin Urine WBC (Auto) Vancomycin Trough Salicylates Acetaminophen Plasma/Serum Alcohol Crossmatch 02/29/20 02/29/20 03/01/20 18:53 23:10 06:53 WBC RBC Hgb Hct MCH RDW Plt Count Lymph % (Auto) Williams % (Auto) Williams # Baso # Seg Neutrophils % Seg Neuts % (Manual) Lymphocytes % (Manual) Monocytes % (Manual) Seg Neutrophils # Seg Neutrophils # Man Lymphocytes # (Manual) Monocytes # (Manual) Eosinophils # (Manual) Basophils # (Manual) PT INR APTT ABG pH ABG pO2 ABG HCO3 ABG O2 Saturation ABG Base Excess ABG Hemoglobin Oxyhemoglobin Sodium Potassium Chloride Carbon Dioxide BUN Creatinine Glucose POC Glucose 112 H 147 H 131 H Lactic Acid Calcium Ionized Calcium Phosphorus Magnesium Total Bilirubin AST ALT Alkaline Phosphatase Ammonia Total Creatine Kinase CK-MB (CK-2) CK-MB (CK-2) Rel Index Total Protein Albumin Urine WBC (Auto) Vancomycin Trough Salicylates Acetaminophen Plasma/Serum Alcohol Crossmatch 03/01/20 03/01/20 03/02/20 17:31 18:35 00:10 WBC RBC Hgb Hct MCH RDW Plt Count Lymph % (Auto) Williams % (Auto) Williams # Baso # Seg Neutrophils % Seg Neuts % (Manual) Lymphocytes % (Manual) Monocytes % (Manual) Seg Neutrophils # Seg Neutrophils # Man Lymphocytes # (Manual) Monocytes # (Manual) Eosinophils # (Manual) Basophils # (Manual) PT INR APTT ABG pH ABG pO2 ABG HCO3 ABG O2 Saturation ABG Base Excess ABG Hemoglobin Oxyhemoglobin Sodium Potassium Chloride Carbon Dioxide BUN Creatinine Glucose POC Glucose 61 L 129 H 117 H Lactic Acid Calcium Ionized Calcium Phosphorus Magnesium Total Bilirubin AST ALT Alkaline Phosphatase Ammonia Total Creatine Kinase CK-MB (CK-2) CK-MB (CK-2) Rel Index Total Protein Albumin Urine WBC (Auto) Vancomycin Trough Salicylates Acetaminophen Plasma/Serum Alcohol Crossmatch 03/02/20 03/02/20 03/02/20 06:56 12:02 18:42 WBC RBC Hgb Hct MCH RDW Plt Count Lymph % (Auto) Williams % (Auto) Williams # Baso # Seg Neutrophils % Seg Neuts % (Manual) Lymphocytes % (Manual) Monocytes % (Manual) Seg Neutrophils # Seg Neutrophils # Man Lymphocytes # (Manual) Monocytes # (Manual) Eosinophils # (Manual) Basophils # (Manual) PT INR APTT ABG pH ABG pO2 ABG HCO3 ABG O2 Saturation ABG Base Excess ABG Hemoglobin Oxyhemoglobin Sodium Potassium Chloride Carbon Dioxide BUN Creatinine Glucose POC Glucose 125 H 111 H 126 H Lactic Acid Calcium Ionized Calcium Phosphorus Magnesium Total Bilirubin AST ALT Alkaline Phosphatase Ammonia Total Creatine Kinase CK-MB (CK-2) CK-MB (CK-2) Rel Index Total Protein Albumin Urine WBC (Auto) Vancomycin Trough Salicylates Acetaminophen Plasma/Serum Alcohol Crossmatch 03/03/20 03/03/20 03/03/20 00:18 06:11 11:50 WBC RBC Hgb Hct MCH RDW Plt Count Lymph % (Auto) Williams % (Auto) Williams # Baso # Seg Neutrophils % Seg Neuts % (Manual) Lymphocytes % (Manual) Monocytes % (Manual) Seg Neutrophils # Seg Neutrophils # Man Lymphocytes # (Manual) Monocytes # (Manual) Eosinophils # (Manual) Basophils # (Manual) PT INR APTT ABG pH ABG pO2 ABG HCO3 ABG O2 Saturation ABG Base Excess ABG Hemoglobin Oxyhemoglobin Sodium Potassium Chloride Carbon Dioxide BUN Creatinine Glucose POC Glucose 139 H 155 H 118 H Lactic Acid Calcium Ionized Calcium Phosphorus Magnesium Total Bilirubin AST ALT Alkaline Phosphatase Ammonia Total Creatine Kinase CK-MB (CK-2) CK-MB (CK-2) Rel Index Total Protein Albumin Urine WBC (Auto) Vancomycin Trough Salicylates Acetaminophen Plasma/Serum Alcohol Crossmatch 03/03/20 03/03/20 03/04/20 18:09 23:46 05:37 WBC RBC Hgb Hct MCH RDW Plt Count Lymph % (Auto) Williams % (Auto) Williams # Baso # Seg Neutrophils % Seg Neuts % (Manual) Lymphocytes % (Manual) Monocytes % (Manual) Seg Neutrophils # Seg Neutrophils # Man Lymphocytes # (Manual) Monocytes # (Manual) Eosinophils # (Manual) Basophils # (Manual) PT INR APTT ABG pH ABG pO2 ABG HCO3 ABG O2 Saturation ABG Base Excess ABG Hemoglobin Oxyhemoglobin Sodium Potassium Chloride Carbon Dioxide BUN Creatinine Glucose POC Glucose 109 H 132 H 111 H Lactic Acid Calcium Ionized Calcium Phosphorus Magnesium Total Bilirubin AST ALT Alkaline Phosphatase Ammonia Total Creatine Kinase CK-MB (CK-2) CK-MB (CK-2) Rel Index Total Protein Albumin Urine WBC (Auto) Vancomycin Trough Salicylates Acetaminophen Plasma/Serum Alcohol Crossmatch 03/04/20 03/04/20 03/05/20 11:38 17:54 00:14 WBC RBC Hgb Hct MCH RDW Plt Count Lymph % (Auto) Williams % (Auto) Williams # Baso # Seg Neutrophils % Seg Neuts % (Manual) Lymphocytes % (Manual) Monocytes % (Manual) Seg Neutrophils # Seg Neutrophils # Man Lymphocytes # (Manual) Monocytes # (Manual) Eosinophils # (Manual) Basophils # (Manual) PT INR APTT ABG pH ABG pO2 ABG HCO3 ABG O2 Saturation ABG Base Excess ABG Hemoglobin Oxyhemoglobin Sodium Potassium Chloride Carbon Dioxide BUN Creatinine Glucose POC Glucose 138 H 118 H 134 H Lactic Acid Calcium Ionized Calcium Phosphorus Magnesium Total Bilirubin AST ALT Alkaline Phosphatase Ammonia Total Creatine Kinase CK-MB (CK-2) CK-MB (CK-2) Rel Index Total Protein Albumin Urine WBC (Auto) Vancomycin Trough Salicylates Acetaminophen Plasma/Serum Alcohol Crossmatch 03/06/20 03/06/20 03/06/20 03:37 03:37 06:29 WBC RBC Hgb Hct MCH RDW Plt Count 550 H Lymph % (Auto) Williams % (Auto) 9.1 H Williams # Baso # Seg Neutrophils % Seg Neuts % (Manual) Lymphocytes % (Manual) Monocytes % (Manual) Seg Neutrophils # Seg Neutrophils # Man Lymphocytes # (Manual) Monocytes # (Manual) Eosinophils # (Manual) Basophils # (Manual) PT INR APTT ABG pH ABG pO2 ABG HCO3 ABG O2 Saturation ABG Base Excess ABG Hemoglobin Oxyhemoglobin Sodium Potassium Chloride Carbon Dioxide BUN 26 H Creatinine 0.5 L Glucose POC Glucose 128 H Lactic Acid Calcium 10.4 H Ionized Calcium Phosphorus Magnesium Total Bilirubin AST ALT Alkaline Phosphatase Ammonia Total Creatine Kinase CK-MB (CK-2) CK-MB (CK-2) Rel Index Total Protein Albumin Urine WBC (Auto) Vancomycin Trough Salicylates Acetaminophen Plasma/Serum Alcohol Crossmatch 03/06/20 03/07/20 03/07/20 17:47 06:37 12:37 WBC RBC Hgb Hct MCH RDW Plt Count Lymph % (Auto) Williams % (Auto) Williams # Baso # Seg Neutrophils % Seg Neuts % (Manual) Lymphocytes % (Manual) Monocytes % (Manual) Seg Neutrophils # Seg Neutrophils # Man Lymphocytes # (Manual) Monocytes # (Manual) Eosinophils # (Manual) Basophils # (Manual) PT INR APTT ABG pH ABG pO2 ABG HCO3 ABG O2 Saturation ABG Base Excess ABG Hemoglobin Oxyhemoglobin Sodium Potassium Chloride Carbon Dioxide BUN Creatinine Glucose POC Glucose 120 H 113 H 118 H Lactic Acid Calcium Ionized Calcium Phosphorus Magnesium Total Bilirubin AST ALT Alkaline Phosphatase Ammonia Total Creatine Kinase CK-MB (CK-2) CK-MB (CK-2) Rel Index Total Protein Albumin Urine WBC (Auto) Vancomycin Trough Salicylates Acetaminophen Plasma/Serum Alcohol Crossmatch 03/07/20 03/08/20 03/08/20 16:41 00:55 06:25 WBC RBC Hgb Hct MCH RDW Plt Count Lymph % (Auto) Williams % (Auto) Williams # Baso # Seg Neutrophils % Seg Neuts % (Manual) Lymphocytes % (Manual) Monocytes % (Manual) Seg Neutrophils # Seg Neutrophils # Man Lymphocytes # (Manual) Monocytes # (Manual) Eosinophils # (Manual) Basophils # (Manual) PT INR APTT ABG pH ABG pO2 ABG HCO3 ABG O2 Saturation ABG Base Excess ABG Hemoglobin Oxyhemoglobin Sodium Potassium Chloride Carbon Dioxide BUN Creatinine Glucose POC Glucose 108 H 139 H 127 H Lactic Acid Calcium Ionized Calcium Phosphorus Magnesium Total Bilirubin AST ALT Alkaline Phosphatase Ammonia Total Creatine Kinase CK-MB (CK-2) CK-MB (CK-2) Rel Index Total Protein Albumin Urine WBC (Auto) Vancomycin Trough Salicylates Acetaminophen Plasma/Serum Alcohol Crossmatch 03/08/20 03/08/20 03/08/20 12:49 13:25 17:13 WBC RBC Hgb Hct MCH RDW Plt Count Lymph % (Auto) Williams % (Auto) Williams # Baso # Seg Neutrophils % Seg Neuts % (Manual) Lymphocytes % (Manual) Monocytes % (Manual) Seg Neutrophils # Seg Neutrophils # Man Lymphocytes # (Manual) Monocytes # (Manual) Eosinophils # (Manual) Basophils # (Manual) PT INR APTT ABG pH ABG pO2 71.1 L ABG HCO3 26.2 H ABG O2 Saturation ABG Base Excess ABG Hemoglobin 8.2 L Oxyhemoglobin 94.8 L Sodium Potassium Chloride Carbon Dioxide BUN Creatinine Glucose POC Glucose 127 H 147 H Lactic Acid Calcium Ionized Calcium Phosphorus Magnesium Total Bilirubin AST ALT Alkaline Phosphatase Ammonia Total Creatine Kinase CK-MB (CK-2) CK-MB (CK-2) Rel Index Total Protein Albumin Urine WBC (Auto) Vancomycin Trough Salicylates Acetaminophen Plasma/Serum Alcohol Crossmatch 03/09/20 03/09/20 03/09/20 06:28 08:36 23:58 WBC RBC Hgb Hct MCH RDW Plt Count Lymph % (Auto) Williams % (Auto) Williams # Baso # Seg Neutrophils % Seg Neuts % (Manual) Lymphocytes % (Manual) Monocytes % (Manual) Seg Neutrophils # Seg Neutrophils # Man Lymphocytes # (Manual) Monocytes # (Manual) Eosinophils # (Manual) Basophils # (Manual) PT INR APTT ABG pH ABG pO2 ABG HCO3 ABG O2 Saturation ABG Base Excess ABG Hemoglobin Oxyhemoglobin Sodium Potassium Chloride Carbon Dioxide BUN Creatinine Glucose POC Glucose 139 H 167 H 122 H Lactic Acid Calcium Ionized Calcium Phosphorus Magnesium Total Bilirubin AST ALT Alkaline Phosphatase Ammonia Total Creatine Kinase CK-MB (CK-2) CK-MB (CK-2) Rel Index Total Protein Albumin Urine WBC (Auto) Vancomycin Trough Salicylates Acetaminophen Plasma/Serum Alcohol Crossmatch 03/10/20 03/10/20 03/11/20 06:32 23:27 06:23 WBC RBC Hgb Hct MCH RDW Plt Count Lymph % (Auto) Williams % (Auto) Williams # Baso # Seg Neutrophils % Seg Neuts % (Manual) Lymphocytes % (Manual) Monocytes % (Manual) Seg Neutrophils # Seg Neutrophils # Man Lymphocytes # (Manual) Monocytes # (Manual) Eosinophils # (Manual) Basophils # (Manual) PT INR APTT ABG pH ABG pO2 ABG HCO3 ABG O2 Saturation ABG Base Excess ABG Hemoglobin Oxyhemoglobin Sodium Potassium Chloride Carbon Dioxide BUN Creatinine Glucose POC Glucose 165 H 115 H 139 H Lactic Acid Calcium Ionized Calcium Phosphorus Magnesium Total Bilirubin AST ALT Alkaline Phosphatase Ammonia Total Creatine Kinase CK-MB (CK-2) CK-MB (CK-2) Rel Index Total Protein Albumin Urine WBC (Auto) Vancomycin Trough Salicylates Acetaminophen Plasma/Serum Alcohol Crossmatch 03/11/20 03/11/20 03/12/20 12:29 18:02 04:53 WBC RBC Hgb Hct MCH RDW Plt Count 625 H Lymph % (Auto) Williams % (Auto) Williams # Baso # Seg Neutrophils % Seg Neuts % (Manual) Lymphocytes % (Manual) Monocytes % (Manual) Seg Neutrophils # Seg Neutrophils # Man Lymphocytes # (Manual) Monocytes # (Manual) Eosinophils # (Manual) Basophils # (Manual) PT INR APTT ABG pH ABG pO2 ABG HCO3 ABG O2 Saturation ABG Base Excess ABG Hemoglobin Oxyhemoglobin Sodium Potassium Chloride Carbon Dioxide BUN Creatinine Glucose POC Glucose 164 H 113 H Lactic Acid Calcium Ionized Calcium Phosphorus Magnesium Total Bilirubin AST ALT Alkaline Phosphatase Ammonia Total Creatine Kinase CK-MB (CK-2) CK-MB (CK-2) Rel Index Total Protein Albumin Urine WBC (Auto) Vancomycin Trough Salicylates Acetaminophen Plasma/Serum Alcohol Crossmatch 03/12/20 03/12/20 03/12/20 04:53 06:26 12:38 WBC RBC Hgb Hct MCH RDW Plt Count Lymph % (Auto) Williams % (Auto) Williams # Baso # Seg Neutrophils % Seg Neuts % (Manual) Lymphocytes % (Manual) Monocytes % (Manual) Seg Neutrophils # Seg Neutrophils # Man Lymphocytes # (Manual) Monocytes # (Manual) Eosinophils # (Manual) Basophils # (Manual) PT INR APTT ABG pH ABG pO2 ABG HCO3 ABG O2 Saturation ABG Base Excess ABG Hemoglobin Oxyhemoglobin Sodium Potassium 5.3 H Chloride Carbon Dioxide BUN 34 H Creatinine Glucose 159 H POC Glucose 149 H 130 H Lactic Acid Calcium 10.7 H Ionized Calcium Phosphorus Magnesium Total Bilirubin AST ALT Alkaline Phosphatase Ammonia Total Creatine Kinase CK-MB (CK-2) CK-MB (CK-2) Rel Index Total Protein Albumin Urine WBC (Auto) Vancomycin Trough Salicylates Acetaminophen Plasma/Serum Alcohol Crossmatch 03/13/20 03/13/20 03/13/20 03:50 06:12 18:11 WBC RBC Hgb Hct MCH RDW Plt Count Lymph % (Auto) Williams % (Auto) Williams # Baso # Seg Neutrophils % Seg Neuts % (Manual) Lymphocytes % (Manual) Monocytes % (Manual) Seg Neutrophils # Seg Neutrophils # Man Lymphocytes # (Manual) Monocytes # (Manual) Eosinophils # (Manual) Basophils # (Manual) PT INR APTT ABG pH ABG pO2 ABG HCO3 ABG O2 Saturation ABG Base Excess ABG Hemoglobin Oxyhemoglobin Sodium Potassium Chloride Carbon Dioxide 20 L BUN 30 H Creatinine 0.6 L Glucose 153 H POC Glucose 124 H 111 H Lactic Acid Calcium Ionized Calcium Phosphorus Magnesium Total Bilirubin AST ALT Alkaline Phosphatase Ammonia Total Creatine Kinase CK-MB (CK-2) CK-MB (CK-2) Rel Index Total Protein Albumin Urine WBC (Auto) Vancomycin Trough Salicylates Acetaminophen Plasma/Serum Alcohol Crossmatch 03/14/20 03/14/20 03/15/20 12:01 15:40 00:02 WBC RBC Hgb Hct MCH RDW Plt Count Lymph % (Auto) Williams % (Auto) Williams # Baso # Seg Neutrophils % Seg Neuts % (Manual) Lymphocytes % (Manual) Monocytes % (Manual) Seg Neutrophils # Seg Neutrophils # Man Lymphocytes # (Manual) Monocytes # (Manual) Eosinophils # (Manual) Basophils # (Manual) PT INR APTT ABG pH ABG pO2 ABG HCO3 ABG O2 Saturation ABG Base Excess ABG Hemoglobin Oxyhemoglobin Sodium Potassium Chloride Carbon Dioxide BUN Creatinine Glucose POC Glucose 116 H 125 H 143 H Lactic Acid Calcium Ionized Calcium Phosphorus Magnesium Total Bilirubin AST ALT Alkaline Phosphatase Ammonia Total Creatine Kinase CK-MB (CK-2) CK-MB (CK-2) Rel Index Total Protein Albumin Urine WBC (Auto) Vancomycin Trough Salicylates Acetaminophen Plasma/Serum Alcohol Crossmatch 03/15/20 03/15/20 03/16/20 12:03 18:14 12:14 WBC RBC Hgb Hct MCH RDW Plt Count Lymph % (Auto) Williams % (Auto) Williams # Baso # Seg Neutrophils % Seg Neuts % (Manual) Lymphocytes % (Manual) Monocytes % (Manual) Seg Neutrophils # Seg Neutrophils # Man Lymphocytes # (Manual) Monocytes # (Manual) Eosinophils # (Manual) Basophils # (Manual) PT INR APTT ABG pH ABG pO2 ABG HCO3 ABG O2 Saturation ABG Base Excess ABG Hemoglobin Oxyhemoglobin Sodium Potassium Chloride Carbon Dioxide BUN Creatinine Glucose POC Glucose 106 H 107 H 107 H Lactic Acid Calcium Ionized Calcium Phosphorus Magnesium Total Bilirubin AST ALT Alkaline Phosphatase Ammonia Total Creatine Kinase CK-MB (CK-2) CK-MB (CK-2) Rel Index Total Protein Albumin Urine WBC (Auto) Vancomycin Trough Salicylates Acetaminophen Plasma/Serum Alcohol Crossmatch 03/16/20 03/17/20 03/17/20 18:30 05:44 12:09 WBC RBC Hgb Hct MCH RDW Plt Count Lymph % (Auto) Williams % (Auto) Williams # Baso # Seg Neutrophils % Seg Neuts % (Manual) Lymphocytes % (Manual) Monocytes % (Manual) Seg Neutrophils # Seg Neutrophils # Man Lymphocytes # (Manual) Monocytes # (Manual) Eosinophils # (Manual) Basophils # (Manual) PT INR APTT ABG pH ABG pO2 ABG HCO3 ABG O2 Saturation ABG Base Excess ABG Hemoglobin Oxyhemoglobin Sodium Potassium Chloride Carbon Dioxide BUN Creatinine Glucose POC Glucose 128 H 114 H 120 H Lactic Acid Calcium Ionized Calcium Phosphorus Magnesium Total Bilirubin AST ALT Alkaline Phosphatase Ammonia Total Creatine Kinase CK-MB (CK-2) CK-MB (CK-2) Rel Index Total Protein Albumin Urine WBC (Auto) Vancomycin Trough Salicylates Acetaminophen Plasma/Serum Alcohol Crossmatch 03/17/20 03/17/20 03/18/20 16:51 23:36 07:07 WBC RBC Hgb Hct MCH RDW Plt Count Lymph % (Auto) Williams % (Auto) Williams # Baso # Seg Neutrophils % Seg Neuts % (Manual) Lymphocytes % (Manual) Monocytes % (Manual) Seg Neutrophils # Seg Neutrophils # Man Lymphocytes # (Manual) Monocytes # (Manual) Eosinophils # (Manual) Basophils # (Manual) PT INR APTT ABG pH ABG pO2 ABG HCO3 ABG O2 Saturation ABG Base Excess ABG Hemoglobin Oxyhemoglobin Sodium Potassium Chloride Carbon Dioxide BUN Creatinine Glucose POC Glucose 108 H 145 H 116 H Lactic Acid Calcium Ionized Calcium Phosphorus Magnesium Total Bilirubin AST ALT Alkaline Phosphatase Ammonia Total Creatine Kinase CK-MB (CK-2) CK-MB (CK-2) Rel Index Total Protein Albumin Urine WBC (Auto) Vancomycin Trough Salicylates Acetaminophen Plasma/Serum Alcohol Crossmatch 03/18/20 03/19/20 03/19/20 18:11 06:09 11:49 WBC RBC Hgb Hct MCH RDW Plt Count Lymph % (Auto) Williams % (Auto) Williams # Baso # Seg Neutrophils % Seg Neuts % (Manual) Lymphocytes % (Manual) Monocytes % (Manual) Seg Neutrophils # Seg Neutrophils # Man Lymphocytes # (Manual) Monocytes # (Manual) Eosinophils # (Manual) Basophils # (Manual) PT INR APTT ABG pH ABG pO2 ABG HCO3 ABG O2 Saturation ABG Base Excess ABG Hemoglobin Oxyhemoglobin Sodium Potassium Chloride Carbon Dioxide BUN Creatinine Glucose POC Glucose 106 H 160 H 145 H Lactic Acid Calcium Ionized Calcium Phosphorus Magnesium Total Bilirubin AST ALT Alkaline Phosphatase Ammonia Total Creatine Kinase CK-MB (CK-2) CK-MB (CK-2) Rel Index Total Protein Albumin Urine WBC (Auto) Vancomycin Trough Salicylates Acetaminophen Plasma/Serum Alcohol Crossmatch 03/20/20 03/20/20 03/20/20 01:01 06:14 12:52 WBC RBC Hgb Hct MCH RDW Plt Count Lymph % (Auto) Williams % (Auto) Williams # Baso # Seg Neutrophils % Seg Neuts % (Manual) Lymphocytes % (Manual) Monocytes % (Manual) Seg Neutrophils # Seg Neutrophils # Man Lymphocytes # (Manual) Monocytes # (Manual) Eosinophils # (Manual) Basophils # (Manual) PT INR APTT ABG pH ABG pO2 ABG HCO3 ABG O2 Saturation ABG Base Excess ABG Hemoglobin Oxyhemoglobin Sodium Potassium Chloride Carbon Dioxide BUN Creatinine Glucose POC Glucose 109 H 122 H 106 H Lactic Acid Calcium Ionized Calcium Phosphorus Magnesium Total Bilirubin AST ALT Alkaline Phosphatase Ammonia Total Creatine Kinase CK-MB (CK-2) CK-MB (CK-2) Rel Index Total Protein Albumin Urine WBC (Auto) Vancomycin Trough Salicylates Acetaminophen Plasma/Serum Alcohol Crossmatch 03/20/20 03/21/20 03/21/20 18:56 00:18 05:21 WBC RBC Hgb Hct MCH RDW Plt Count Lymph % (Auto) Williams % (Auto) Williams # Baso # Seg Neutrophils % Seg Neuts % (Manual) Lymphocytes % (Manual) Monocytes % (Manual) Seg Neutrophils # Seg Neutrophils # Man Lymphocytes # (Manual) Monocytes # (Manual) Eosinophils # (Manual) Basophils # (Manual) PT INR APTT ABG pH ABG pO2 ABG HCO3 ABG O2 Saturation ABG Base Excess ABG Hemoglobin Oxyhemoglobin Sodium Potassium Chloride Carbon Dioxide BUN Creatinine Glucose POC Glucose 110 H 140 H 112 H Lactic Acid Calcium Ionized Calcium Phosphorus Magnesium Total Bilirubin AST ALT Alkaline Phosphatase Ammonia Total Creatine Kinase CK-MB (CK-2) CK-MB (CK-2) Rel Index Total Protein Albumin Urine WBC (Auto) Vancomycin Trough Salicylates Acetaminophen Plasma/Serum Alcohol Crossmatch 03/21/20 03/22/20 03/22/20 17:15 01:14 12:08 WBC RBC Hgb Hct MCH RDW Plt Count Lymph % (Auto) Williams % (Auto) Williams # Baso # Seg Neutrophils % Seg Neuts % (Manual) Lymphocytes % (Manual) Monocytes % (Manual) Seg Neutrophils # Seg Neutrophils # Man Lymphocytes # (Manual) Monocytes # (Manual) Eosinophils # (Manual) Basophils # (Manual) PT INR APTT ABG pH ABG pO2 ABG HCO3 ABG O2 Saturation ABG Base Excess ABG Hemoglobin Oxyhemoglobin Sodium Potassium Chloride Carbon Dioxide BUN Creatinine Glucose POC Glucose 158 H 157 H 133 H Lactic Acid Calcium Ionized Calcium Phosphorus Magnesium Total Bilirubin AST ALT Alkaline Phosphatase Ammonia Total Creatine Kinase CK-MB (CK-2) CK-MB (CK-2) Rel Index Total Protein Albumin Urine WBC (Auto) Vancomycin Trough Salicylates Acetaminophen Plasma/Serum Alcohol Crossmatch 03/22/20 03/23/20 03/23/20 16:48 01:00 06:54 WBC RBC Hgb Hct MCH RDW Plt Count Lymph % (Auto) Williams % (Auto) Williams # Baso # Seg Neutrophils % Seg Neuts % (Manual) Lymphocytes % (Manual) Monocytes % (Manual) Seg Neutrophils # Seg Neutrophils # Man Lymphocytes # (Manual) Monocytes # (Manual) Eosinophils # (Manual) Basophils # (Manual) PT INR APTT ABG pH ABG pO2 ABG HCO3 ABG O2 Saturation ABG Base Excess ABG Hemoglobin Oxyhemoglobin Sodium Potassium Chloride Carbon Dioxide BUN Creatinine Glucose POC Glucose 111 H 153 H 129 H Lactic Acid Calcium Ionized Calcium Phosphorus Magnesium Total Bilirubin AST ALT Alkaline Phosphatase Ammonia Total Creatine Kinase CK-MB (CK-2) CK-MB (CK-2) Rel Index Total Protein Albumin Urine WBC (Auto) Vancomycin Trough Salicylates Acetaminophen Plasma/Serum Alcohol Crossmatch 03/23/20 03/23/20 03/23/20 12:08 15:54 23:20 WBC RBC Hgb Hct MCH RDW Plt Count Lymph % (Auto) Williams % (Auto) Williams # Baso # Seg Neutrophils % Seg Neuts % (Manual) Lymphocytes % (Manual) Monocytes % (Manual) Seg Neutrophils # Seg Neutrophils # Man Lymphocytes # (Manual) Monocytes # (Manual) Eosinophils # (Manual) Basophils # (Manual) PT INR APTT ABG pH ABG pO2 ABG HCO3 ABG O2 Saturation ABG Base Excess ABG Hemoglobin Oxyhemoglobin Sodium Potassium Chloride Carbon Dioxide BUN Creatinine Glucose POC Glucose 126 H 142 H 115 H Lactic Acid Calcium Ionized Calcium Phosphorus Magnesium Total Bilirubin AST ALT Alkaline Phosphatase Ammonia Total Creatine Kinase CK-MB (CK-2) CK-MB (CK-2) Rel Index Total Protein Albumin Urine WBC (Auto) Vancomycin Trough Salicylates Acetaminophen Plasma/Serum Alcohol Crossmatch 03/24/20 03/24/20 03/24/20 06:33 12:19 16:46 WBC RBC Hgb Hct MCH RDW Plt Count Lymph % (Auto) Williams % (Auto) Williams # Baso # Seg Neutrophils % Seg Neuts % (Manual) Lymphocytes % (Manual) Monocytes % (Manual) Seg Neutrophils # Seg Neutrophils # Man Lymphocytes # (Manual) Monocytes # (Manual) Eosinophils # (Manual) Basophils # (Manual) PT INR APTT ABG pH ABG pO2 ABG HCO3 ABG O2 Saturation ABG Base Excess ABG Hemoglobin Oxyhemoglobin Sodium Potassium Chloride Carbon Dioxide BUN Creatinine Glucose POC Glucose 122 H 156 H 140 H Lactic Acid Calcium Ionized Calcium Phosphorus Magnesium Total Bilirubin AST ALT Alkaline Phosphatase Ammonia Total Creatine Kinase CK-MB (CK-2) CK-MB (CK-2) Rel Index Total Protein Albumin Urine WBC (Auto) Vancomycin Trough Salicylates Acetaminophen Plasma/Serum Alcohol Crossmatch 03/24/20 03/25/20 03/25/20 23:56 04:28 06:45 WBC RBC Hgb Hct MCH RDW Plt Count Lymph % (Auto) Williams % (Auto) Williams # Baso # Seg Neutrophils % Seg Neuts % (Manual) Lymphocytes % (Manual) Monocytes % (Manual) Seg Neutrophils # Seg Neutrophils # Man Lymphocytes # (Manual) Monocytes # (Manual) Eosinophils # (Manual) Basophils # (Manual) PT INR APTT ABG pH ABG pO2 ABG HCO3 ABG O2 Saturation ABG Base Excess ABG Hemoglobin Oxyhemoglobin Sodium Potassium Chloride Carbon Dioxide BUN 23 H Creatinine 0.5 L Glucose 121 H POC Glucose 127 H 130 H Lactic Acid Calcium 10.3 H Ionized Calcium Phosphorus Magnesium Total Bilirubin AST ALT Alkaline Phosphatase Ammonia Total Creatine Kinase CK-MB (CK-2) CK-MB (CK-2) Rel Index Total Protein Albumin Urine WBC (Auto) Vancomycin Trough Salicylates Acetaminophen Plasma/Serum Alcohol Crossmatch 03/25/20 03/25/20 03/26/20 12:50 15:57 05:39 WBC RBC Hgb Hct MCH RDW Plt Count Lymph % (Auto) Williams % (Auto) Williams # Baso # Seg Neutrophils % Seg Neuts % (Manual) Lymphocytes % (Manual) Monocytes % (Manual) Seg Neutrophils # Seg Neutrophils # Man Lymphocytes # (Manual) Monocytes # (Manual) Eosinophils # (Manual) Basophils # (Manual) PT INR APTT ABG pH ABG pO2 ABG HCO3 ABG O2 Saturation ABG Base Excess ABG Hemoglobin Oxyhemoglobin Sodium Potassium Chloride Carbon Dioxide BUN Creatinine Glucose POC Glucose 145 H 118 H 136 H Lactic Acid Calcium Ionized Calcium Phosphorus Magnesium Total Bilirubin AST ALT Alkaline Phosphatase Ammonia Total Creatine Kinase CK-MB (CK-2) CK-MB (CK-2) Rel Index Total Protein Albumin Urine WBC (Auto) Vancomycin Trough Salicylates Acetaminophen Plasma/Serum Alcohol Crossmatch 03/26/20 03/26/20 03/27/20 16:04 23:17 11:31 WBC RBC Hgb Hct MCH RDW Plt Count Lymph % (Auto) Williams % (Auto) Williams # Baso # Seg Neutrophils % Seg Neuts % (Manual) Lymphocytes % (Manual) Monocytes % (Manual) Seg Neutrophils # Seg Neutrophils # Man Lymphocytes # (Manual) Monocytes # (Manual) Eosinophils # (Manual) Basophils # (Manual) PT INR APTT ABG pH ABG pO2 ABG HCO3 ABG O2 Saturation ABG Base Excess ABG Hemoglobin Oxyhemoglobin Sodium Potassium Chloride Carbon Dioxide BUN Creatinine Glucose POC Glucose 157 H 157 H 121 H Lactic Acid Calcium Ionized Calcium Phosphorus Magnesium Total Bilirubin AST ALT Alkaline Phosphatase Ammonia Total Creatine Kinase CK-MB (CK-2) CK-MB (CK-2) Rel Index Total Protein Albumin Urine WBC (Auto) Vancomycin Trough Salicylates Acetaminophen Plasma/Serum Alcohol Crossmatch 03/27/20 03/28/20 03/28/20 16:33 01:55 12:12 WBC RBC Hgb Hct MCH RDW Plt Count Lymph % (Auto) Williams % (Auto) Williams # Baso # Seg Neutrophils % Seg Neuts % (Manual) Lymphocytes % (Manual) Monocytes % (Manual) Seg Neutrophils # Seg Neutrophils # Man Lymphocytes # (Manual) Monocytes # (Manual) Eosinophils # (Manual) Basophils # (Manual) PT INR APTT ABG pH ABG pO2 ABG HCO3 ABG O2 Saturation ABG Base Excess ABG Hemoglobin Oxyhemoglobin Sodium Potassium Chloride Carbon Dioxide BUN Creatinine Glucose POC Glucose 126 H 106 H 116 H Lactic Acid Calcium Ionized Calcium Phosphorus Magnesium Total Bilirubin AST ALT Alkaline Phosphatase Ammonia Total Creatine Kinase CK-MB (CK-2) CK-MB (CK-2) Rel Index Total Protein Albumin Urine WBC (Auto) Vancomycin Trough Salicylates Acetaminophen Plasma/Serum Alcohol Crossmatch 03/28/20 03/29/20 03/29/20 17:57 06:41 16:48 WBC RBC Hgb Hct MCH RDW Plt Count Lymph % (Auto) Williams % (Auto) Williams # Baso # Seg Neutrophils % Seg Neuts % (Manual) Lymphocytes % (Manual) Monocytes % (Manual) Seg Neutrophils # Seg Neutrophils # Man Lymphocytes # (Manual) Monocytes # (Manual) Eosinophils # (Manual) Basophils # (Manual) PT INR APTT ABG pH ABG pO2 ABG HCO3 ABG O2 Saturation ABG Base Excess ABG Hemoglobin Oxyhemoglobin Sodium Potassium Chloride Carbon Dioxide BUN Creatinine Glucose POC Glucose 138 H 154 H 136 H Lactic Acid Calcium Ionized Calcium Phosphorus Magnesium Total Bilirubin AST ALT Alkaline Phosphatase Ammonia Total Creatine Kinase CK-MB (CK-2) CK-MB (CK-2) Rel Index Total Protein Albumin Urine WBC (Auto) Vancomycin Trough Salicylates Acetaminophen Plasma/Serum Alcohol Crossmatch 03/30/20 03/30/20 03/31/20 05:44 12:16 16:37 WBC RBC Hgb Hct MCH RDW Plt Count Lymph % (Auto) Williams % (Auto) Williams # Baso # Seg Neutrophils % Seg Neuts % (Manual) Lymphocytes % (Manual) Monocytes % (Manual) Seg Neutrophils # Seg Neutrophils # Man Lymphocytes # (Manual) Monocytes # (Manual) Eosinophils # (Manual) Basophils # (Manual) PT INR APTT ABG pH ABG pO2 ABG HCO3 ABG O2 Saturation ABG Base Excess ABG Hemoglobin Oxyhemoglobin Sodium Potassium Chloride Carbon Dioxide BUN Creatinine Glucose POC Glucose 110 H 122 H 128 H Lactic Acid Calcium Ionized Calcium Phosphorus Magnesium Total Bilirubin AST ALT Alkaline Phosphatase Ammonia Total Creatine Kinase CK-MB (CK-2) CK-MB (CK-2) Rel Index Total Protein Albumin Urine WBC (Auto) Vancomycin Trough Salicylates Acetaminophen Plasma/Serum Alcohol Crossmatch 04/01/20 04/02/20 04/02/20 22:51 11:38 16:35 WBC RBC Hgb Hct MCH RDW Plt Count Lymph % (Auto) Williams % (Auto) Williams # Baso # Seg Neutrophils % Seg Neuts % (Manual) Lymphocytes % (Manual) Monocytes % (Manual) Seg Neutrophils # Seg Neutrophils # Man Lymphocytes # (Manual) Monocytes # (Manual) Eosinophils # (Manual) Basophils # (Manual) PT INR APTT ABG pH ABG pO2 ABG HCO3 ABG O2 Saturation ABG Base Excess ABG Hemoglobin Oxyhemoglobin Sodium Potassium Chloride Carbon Dioxide BUN Creatinine Glucose POC Glucose 132 H 128 H 108 H Lactic Acid Calcium Ionized Calcium Phosphorus Magnesium Total Bilirubin AST ALT Alkaline Phosphatase Ammonia Total Creatine Kinase CK-MB (CK-2) CK-MB (CK-2) Rel Index Total Protein Albumin Urine WBC (Auto) Vancomycin Trough Salicylates Acetaminophen Plasma/Serum Alcohol Crossmatch 04/05/20 00:16 WBC RBC Hgb Hct MCH RDW Plt Count Lymph % (Auto) Williams % (Auto) Williams # Baso # Seg Neutrophils % Seg Neuts % (Manual) Lymphocytes % (Manual) Monocytes % (Manual) Seg Neutrophils # Seg Neutrophils # Man Lymphocytes # (Manual) Monocytes # (Manual) Eosinophils # (Manual) Basophils # (Manual) PT INR APTT ABG pH ABG pO2 ABG HCO3 ABG O2 Saturation ABG Base Excess ABG Hemoglobin Oxyhemoglobin Sodium Potassium Chloride Carbon Dioxide BUN Creatinine Glucose POC Glucose 117 H Lactic Acid Calcium Ionized Calcium Phosphorus Magnesium Total Bilirubin AST ALT Alkaline Phosphatase Ammonia Total Creatine Kinase CK-MB (CK-2) CK-MB (CK-2) Rel Index Total Protein Albumin Urine WBC (Auto) Vancomycin Trough Salicylates Acetaminophen Plasma/Serum Alcohol Crossmatch Allied health notes reviewed: RT
--- NOTE | 2020-04-09 18:33 | Progress Note ---
Assessment and Plan Assessment and plan: Cardiopulmonary arrest outside the hospital; Status post CPR' Anoxic brain injury: suspected CT head: No acute abnormality. EEG ordered showed Generalized slowing. No seizures or epileptiform activity. -Patient now alert and awake responding appropriately -As needed haldol for agitation Acute metabolic encephalopathy/toxic encephalopathy due to the above - cont supportive care Acute Respiratory failure status post trach and PEG 12/13/2019 Tracheostomy site healed, site ulceration; resolved Anemia, microcytic - Status post 3 units PRBC transfusion, H&H low stable Hyperammonemia - likely from liver disease related to EtOH abuse - Patient had elevated ammonia level and treated with lactulose Metabolic Acidosis -Alcohol ketoacidosis vs hypoprofusion -Continue to monitor ELevated LFTs, stable now - due to ischemic hepatitis. Leucocytosis with sepsis - Source MRSA bacteremia and MSSA pneumonia. UA showed pyuria. RUQ US showed no ascites. - Repeat TTE negative for vegetation. Completed 7 days of Ceftriaxone on 11/29/2019. -Treated with Abx vancomycin 1 gm IV q 12 hour total 2 week till 12/30/2019 Severe protein calorie malnutrition Dietitian following MSSA pneumonia: Status post vancomycin till 12/30/2019 Alcohol use Disorder - given ongoing Alcohol use almost daily, s/p IV Thiamine - monitor Severe hypokalemia -Repleted Seizure disorder: treated with Keppra H. Influenzae, tracheobronchitis, treated with abx Moderate to severe fecal impaction - will add stool softner DNR CODE STATUS Awaiting placement 03/25/2020. Patient is s/p cardiac arrest, extubated and decannulated with stoma healing. Await placement per case management. 03/26/2020. Awaiting placement. 03/27/2020. Continue to work with case management for placement. Patient requiring restraints for safety. 04/06/20; patient remains in restraints secondary to agitation confusion and risk of fall, awaiting placement 04/07/20; patient clinically stable, awaiting placement 04/09/20; patient remains confused, agitated requiring restraints for safety, awaiting placement Plan of care reviewed with e pt's nurse and case management. History Interval history: I have seen and examined the patient Confused,,restrained for safety. Vitals reviewed Hospitalist Physical - Constitutional Vitals: Temp Pulse Resp BP Pulse Ox 97.9 F 96 H 18 151/98 92 04/09/20 16:53 04/09/20 16:53 04/09/20 16:53 04/09/20 16:53 04/09/20 16:53 General appearance: Present: no acute distress, cachectic, disheveled - EENT Eyes: Present: PERRL, EOM intact ENT: hearing intact - Neck Neck: Present: supple, normal ROM - Respiratory Respiratory effort: normal Respiratory: bilateral: diminished, negative: rales, rhonchi, wheezing - Cardiovascular Rhythm: regular Heart Sounds: Present: S1 & S2 - Extremities Extremities: no ischemia, pulses intact - Abdominal General gastrointestinal: soft, non-tender, non-distended, normal bowel sounds - Integumentary Integumentary: Present: clear, warm - Psychiatric Psychiatric: appropriate mood/affect, agitated, other (confused) - Neurologic Neurologic: moves all extremities HEART Score - HEART Score Troponin: Troponin T < 0.010 ng/mL (0.00-0.029) 11/22/19 23:27 Results - Labs CBC & Chem 7: 03/25/20 04:28 03/25/20 04:28 Labs: Laboratory Last Values WBC 9.0 K/mm3 (4.5-11.0) 03/25/20 04:28 RBC 3.65 M/mm3 (3.65-5.03) 03/25/20 04:28 Hgb 10.8 gm/dl (10.1-14.3) 03/25/20 04:28 Hct 32.5 % (30.3-42.9) 03/25/20 04:28 MCV 89 fl (79-97) 03/25/20 04:28 MCH 30 pg (28-32) 03/25/20 04:28 MCHC 33 % (30-34) 03/25/20 04:28 RDW 14.1 % (13.2-15.2) 03/25/20 04:28 Plt Count 423 K/mm3 (140-440) 03/25/20 04:28 Lymph % (Auto) 27.8 % (13.4-35.0) 03/06/20 03:37 [place] % (Auto) 9.1 % (0.0-7.3) H 03/06/20 03:37 Eos % (Auto) 2.8 % (0.0-4.3) 03/06/20 03:37 Baso % (Auto) 0.7 % (0.0-1.8) 03/06/20 03:37 Lymph # 2.2 K/mm3 (1.2-5.4) 03/06/20 03:37 [place] # 0.7 K/mm3 (0.0-0.8) 03/06/20 03:37 Eos # 0.2 K/mm3 (0.0-0.4) 03/06/20 03:37 Baso # 0.1 K/mm3 (0.0-0.1) 03/06/20 03:37 Add Manual Diff Complete 12/25/19 03:47 Total Counted 200 12/25/19 03:47 Seg Neutrophils % 59.6 % (40.0-70.0) 03/06/20 03:37 Seg Neuts % (Manual) 97.5 % (40.0-70.0) H 12/25/19 03:47 Band Neutrophils % 0 % 12/25/19 03:47 Lymphocytes % (Manual) 1.0 % (13.4-35.0) L 12/25/19 03:47 Reactive Lymphs % (Man) 0 % 12/25/19 03:47 Monocytes % (Manual) 1.5 % (0.0-7.3) 12/25/19 03:47 Eosinophils % (Manual) 0 % (0.0-4.3) 12/25/19 03:47 Basophils % (Manual) 0 % (0.0-1.8) 12/25/19 03:47 Metamyelocytes % 0 % 12/25/19 03:47 Myelocytes % 0 % 12/25/19 03:47 Promyelocytes % 0 % 12/25/19 03:47 Blast Cells % 0 % 12/25/19 03:47 Nucleated RBC % Not Reportable 12/25/19 03:47 Seg Neutrophils # 4.8 K/mm3 (1.8-7.7) 03/06/20 03:37 Seg Neutrophils # Man 35.3 K/mm3 (1.8-7.7) H 12/25/19 03:47 Band Neutrophils # 0.0 K/mm3 12/25/19 03:47 Lymphocytes # (Manual) 0.4 K/mm3 (1.2-5.4) L 12/25/19 03:47 Abs React Lymphs (Man) 0.0 K/mm3 12/25/19 03:47 Monocytes # (Manual) 0.5 K/mm3 (0.0-0.8) 12/25/19 03:47 Eosinophils # (Manual) 0.0 K/mm3 (0.0-0.4) 12/25/19 03:47 Basophils # (Manual) 0.0 K/mm3 (0.0-0.1) 12/25/19 03:47 Metamyelocytes # 0.0 K/mm3 12/25/19 03:47 Myelocytes # 0.0 K/mm3 12/25/19 03:47 Promyelocytes # 0.0 K/mm3 12/25/19 03:47 Blast Cells # 0.0 K/mm3 12/25/19 03:47 Pathologist Review 12/13/19 07:48 WBC Morphology Not Reportable 12/25/19 03:47 Hypersegmented Neuts Not Reportable 12/25/19 03:47 Hyposegmented Neuts Not Reportable 12/25/19 03:47 Hypogranular Neuts Not Reportable 12/25/19 03:47 Smudge Cells Not Reportable 12/25/19 03:47 Toxic Granulation Not Reportable 12/25/19 03:47 Toxic Vacuolation Not Reportable 12/25/19 03:47 Dohle Bodies Not Reportable 12/25/19 03:47 Pelger-Huet Anomaly Not Reportable 12/25/19 03:47 Dominique Rods Not Reportable 12/25/19 03:47 Platelet Estimate Consistent w auto 12/25/19 03:47 Clumped Platelets Not Reportable 12/25/19 03:47 Plt Clumps, EDTA Not Reportable 12/25/19 03:47 Large Platelets Not Reportable 12/25/19 03:47 Giant Platelets Not Reportable 12/25/19 03:47 Platelet Satelliting Not Reportable 12/25/19 03:47 Plt Morphology Comment Not Reportable 12/25/19 03:47 RBC Morphology Not Reportable 12/25/19 03:47 Dimorphic RBCs Not Reportable 12/25/19 03:47 Polychromasia Not Reportable 12/25/19 03:47 Hypochromasia Not Reportable 12/25/19 03:47 Poikilocytosis Not Reportable 12/25/19 03:47 Anisocytosis 1+ 12/25/19 03:47 Microcytosis Not Reportable 12/25/19 03:47 Macrocytosis Not Reportable 12/25/19 03:47 Spherocytes Not Reportable 12/25/19 03:47 Pappenheimer Bodies Not Reportable 12/25/19 03:47 Sickle Cells Not Reportable 12/25/19 03:47 Target Cells Not Reportable 12/25/19 03:47 Tear Drop Cells Not Reportable 12/25/19 03:47 Ovalocytes Not Reportable 12/25/19 03:47 Helmet Cells Not Reportable 12/25/19 03:47 [place] Bodies Not Reportable 12/25/19 03:47 [place] Rings Not Reportable 12/25/19 03:47 Jamshid Cells Not Reportable 12/25/19 03:47 Bite Cells Not Reportable 12/25/19 03:47 Crenated Cell Not Reportable 12/25/19 03:47 Elliptocytes Not Reportable 12/25/19 03:47 Acanthocytes (Spur) Not Reportable 12/25/19 03:47 Rouleaux Not Reportable 12/25/19 03:47 Hemoglobin C Crystals Not Reportable 12/25/19 03:47 Schistocytes Not Reportable 12/25/19 03:47 Malaria parasites Not Reportable 12/25/19 03:47 [place]gg Bodies Not Reportable 12/25/19 03:47 Hem Pathologist Commnt No 12/25/19 03:47 PT 17.0 Sec. (12.2-14.9) H 11/23/19 03:47 INR 1.36 (0.87-1.13) H 11/23/19 03:47 APTT 128.2 Sec. (24.2-36.6) H* 11/23/19 03:47 Heparin Anti-Xa Level 0.31 U.I./ml (0.3-0.7) 11/23/19 09:03 ABG pH 7.433 pH Units (7.350-7.450) 03/08/20 13:25 ABG pCO2 40.2 mm Hg 03/08/20 13:25 ABG pO2 71.1 mm Hg (80.0-90.0) L 03/08/20 13:25 ABG HCO3 26.2 mmol/L (20.0-26.0) H 03/08/20 13:25 ABG O2 Saturation 97.0 % (95.0-99.0) 03/08/20 13:25 ABG O2 Content 11.0 (0.0-44) 03/08/20 13:25 ABG Base Excess 1.8 mmol/L (-2.0-3.0) 03/08/20 13:25 ABG Hemoglobin 8.2 gm/dl (12.0-16.0) L 03/08/20 13:25 ABG Carboxyhemoglobin 1.7 % (0.0-5.0) 03/08/20 13:25 ABG Methemoglobin 0.5 % (0.0-1.5) 03/08/20 13:25 Oxyhemoglobin 94.8 % (95.0-99.0) L 03/08/20 13:25 FiO2 21 % 03/08/20 13:25 Sodium 138 mmol/L (137-145) 03/25/20 04:28 Potassium 4.2 mmol/L (3.6-5.0) 03/25/20 04:28 Chloride 99.3 mmol/L (98-107) 03/25/20 04:28 Carbon Dioxide 28 mmol/L (22-30) 03/25/20 04:28 Anion Gap 15 mmol/L 03/25/20 04:28 BUN 23 mg/dL (7-17) H 03/25/20 04:28 Creatinine 0.5 mg/dL (0.7-1.2) L 03/25/20 04:28 Estimated GFR > 60 ml/min 03/25/20 04:28 BUN/Creatinine Ratio 46 % 03/25/20 04:28 Glucose 121 mg/dL (65-100) H 03/25/20 04:28 POC Glucose 117 (70-105) H 04/05/20 00:16 Lactic Acid 1.80 mmol/L (0.7-2.0) 11/25/19 05:05 Calcium 10.3 mg/dL (8.4-10.2) H 03/25/20 04:28 Ionized Calcium 4.5 mg/dL (4.8-5.6) L 11/23/19 06:32 Phosphorus 4.20 mg/dL (2.5-4.5) D 11/28/19 08:59 Magnesium 1.90 mg/dL (1.7-2.3) 02/28/20 03:40 Total Bilirubin 0.40 mg/dL (0.1-1.2) 12/13/19 07:48 AST 27 units/L (5-40) 12/13/19 07:48 ALT 26 units/L (7-56) 12/13/19 07:48 Alkaline Phosphatase 316 units/L (35-129) H 12/13/19 07:48 Ammonia 42.0 umol/L (25-60) 11/29/19 13:41 Total Creatine Kinase 139 units/L (30-135) H 11/22/19 23:27 CK-MB (CK-2) 8.3 ng/mL (0.0-4.0) H 11/22/19 23:27 CK-MB (CK-2) Rel Index 5.9 (0-4) H 11/22/19 23:27 Troponin T < 0.010 ng/mL (0.00-0.029) 11/22/19 23:27 Total Protein 6.8 g/dL (6.3-8.2) 12/13/19 07:48 Albumin 2.4 g/dL (3.9-5) L 12/13/19 07:48 Albumin/Globulin Ratio 0.5 % 12/13/19 07:48 Lipase 18 units/L (13-60) 11/23/19 00:34 Procalcitonin 1.09 ng/mL (<0.15) 11/23/19 04:53 TSH 1.010 mlU/mL (0.270-4.200) 02/12/20 07:36 Free T4 1.08 ng/dL (0.76-1.46) 02/12/20 07:36 Urine Color Yellow (Yellow) 12/16/19 Unknown Urine Turbidity Slightly-cloudy (Clear) 12/16/19 Unknown Urine pH 5.0 (5.0-7.0) 12/16/19 Unknown Ur Specific [place] 1.018 (1.003-1.030) 12/16/19 Unknown Urine Protein 30 mg/dl mg/dL (Negative) 12/16/19 Unknown Urine Glucose (UA) Neg mg/dL (Negative) 12/16/19 Unknown Urine Ketones Neg mg/dL (Negative) 12/16/19 Unknown Urine Blood Sm (Negative) 12/16/19 Unknown Urine Nitrite Neg (Negative) 12/16/19 Unknown Urine Bilirubin Neg (Negative) 12/16/19 Unknown Urine Urobilinogen < 2.0 mg/dL (<2.0) 12/16/19 Unknown Ur Leukocyte Esterase Neg (Negative) 12/16/19 Unknown Urine WBC (Auto) 6.0 /HPF (0.0-6.0) 12/16/19 Unknown Urine RBC (Auto) 9.0 /HPF (0.0-6.0) 12/16/19 Unknown U Epithel Cells (Auto) < 1.0 /HPF (0-13.0) 12/16/19 Unknown Urine Bacteria (Auto) 2+ /HPF (Negative) 11/22/19 23:17 Hyaline Casts 3 /LPF 12/16/19 Unknown Granular Casts 3 /LPF 12/16/19 Unknown Urine Mucus Few /HPF 12/16/19 Unknown Vancomycin Trough 33.8 ug/mL (5.0-20.0) H 12/21/19 08:56 Random Vancomycin 16.2 ug/mL (0-40.0) 12/24/19 04:31 Salicylates < 0.3 mg/dL (2.8-20.0) L 11/22/19 23:27 Urine Opiates Screen Presumptive negative 11/22/19 23:17 Urine Methadone Screen Presumptive negative 11/22/19 23:17 Acetaminophen < 5.0 ug/mL (10.0-30.0) L 11/22/19 23:27 Ur Barbiturates Screen Presumptive negative 11/22/19 23:17 Ur Phencyclidine Scrn Presumptive negative 11/22/19 23:17 Ur Amphetamines Screen Presumptive negative 11/22/19 23:17 U Benzodiazepines Scrn Presumptive negative 11/22/19 23:17 Urine Cocaine Screen Presumptive negative 11/22/19 23:17 U Marijuana (THC) Screen Presumptive negative 11/22/19 23:17 Drugs of Abuse Note Disclamer 11/22/19 23:17 Plasma/Serum Alcohol 0.08 % (0-0.07) H 11/22/19 23:27 Coronavirus (PCR) Negative (Negative) 02/05/20 07:50 Hepatitis A IgM Ab Non-reactive (NonReactive) 11/23/19 01:19 Hep Bs Antigen Non-reactive (Negative) 11/23/19 01:19 Hep B Core IgM Ab Non-reactive (NonReactive) 11/23/19 01:19 Hepatitis C Antibody Non-reactive (NonReactive) 11/23/19 01:19 Blood Type O POSITIVE 12/21/19 14:54 Antibody Screen Negative 12/21/19 14:54 Crossmatch See Detail 12/21/19 14:54 - Diagnostic Impressions Diagnostic Impressions: Echocardiogram 11/23/19 03:58 Transthoracic Echocardiogram Indication: Cardiac arrest BP: 131/89 HR: 115 Conclusions *The study quality is technically difficult. *Global left ventricular wall motion and contractility are within normal limits. *The estimated ejection fraction is 55-60%. *Abnormal left ventricular diastolic filling is observed, consistent with impaired relaxation. *There is no pericardial effusion. Findings Procedure Info: The study quality is technically difficult. The study was technically limited due to the patient's inability to lay in the left lateral decubitus position. Left Ventricle: The left ventricular chamber size is normal. There is no left ventricular hypertrophy. Global left ventricular wall motion and contractility are within normal limits. Global left ventricular systolic function is normal. The estimated ejection fraction is 55-60%. Abnormal left ventricular diastolic filling is observed, consistent with impaired relaxation. Left Atrium: The left atrial chamber size is normal. Aortic Valve: The aortic valve leaflets are mildly thickened. Mitral Valve: The mitral valve leaflets are mildly thickened. There is no evidence of mitral regurgitation. Tricuspid Valve: The tricuspid valve leaflets are normal. There is trace tricuspid regurgitation. The right ventricular systolic pressure is calculated at 33 mmHg. Pulmonic Valve: The pulmonic valve appears normal. Pericardium: The pericardium appears normal. There is no pericardial effusion. Aorta: The aorta appears normal. Venous: The inferior vena cava appears normal in size. Measurements Chambers 2D Name Value Normal Range IVSd (2D) 0.94 cm (0.6 - 1.1) LVPWd (2D) 0.81 cm (0.6 - 1.1) LVIDd (2D) 3.6 cm (3.7 - 5.6) LVIDs (2D) 2.27 cm (2 - 3.8) LV FS (2D) 36.93 % - EF Teichholz (2D) 67.76 % - Ao root diameter (2D) 3.03 cm (2 - 3.7) Volumes/Mass Name Value Normal Range LA ESV SP 4CH (A/L) 16.89 ml - LA ESV SP 4CH (MOD) 15.52 ml - Diastolic/Systolic Function Name Value Normal Range MV E-wave Vmax 0.55 m/sec - MV deceleration time 200.89 msec - MV A-wave Vmax 0.68 m/sec - MV E:A ratio 0.82 ratio - Aortic Valve Name Value Normal Range AV Vmax 1.1 m/sec - AV VTI 15.9 cm - AV peak gradient 4.86 mmHg - AV mean gradient 2.59 mmHg - LVOT diameter 2 cm - LVOT Vmax 1.03 m/sec - LVOT VTI 15.87 cm - LVOT peak gradient 4.24 mmHg - LVOT mean gradient 2.41 mmHg - SV LVOT 49.77 ml - JOSÉ MIGUEL (continuity Vmax) 2.93 cm2 - JOSÉ MIGUEL (continuity VTI) 3.13 cm2 - Tricuspid Valve Name Value Normal Range TR Vmax 2.74 m/sec - TR peak gradient 303 mmHg - RAP 3 mmHg - RVSP 33 mmHg - IVC diameter 1.77 cm (1.2 - 2.3) Pulmonic Valve/Qp:Qs Name Value Normal Range PV Vmax 0.77 m/sec - PV peak gradient 2.4 mmHg - PV acceleration time 114.18 msec - Echocardiogram Limited Views 12/17/19 14:53 Transthoracic Echocardiogram Indication: R/O Vegetations BP: 144/83 HR: 133 Conclusions *Global left ventricular systolic function is mildly decreased. *The estimated ejection fraction is 45-50%. *A trivial pericardial effusion is visualized. Findings Left Ventricle: The left ventricular chamber size is normal. Global left ventricular systolic function is mildly decreased. The estimated ejection fraction is 45-50%. Left Atrium: The left atrial chamber size is normal. Right Ventricle: The right ventricular cavity size is normal. Right Atrium: The right atrial cavity size is normal. Aortic Valve: The aortic valve is not well visualized. There is no evidence of aortic regurgitation. Mitral Valve: The mitral valve leaflets are mildly thickened. There is trace of mitral regurgitation. Tricuspid Valve: The tricuspid valve leaflets are mildly thickened. There is trace tricuspid regurgitation. The right ventricular systolic pressure is calculated at 29 mmHg. Pulmonic Valve: The pulmonic valve is not well visualized. There is no evidence of pulmonic regurgitation. Pericardium: A trivial pericardial effusion is visualized. Aorta: There is no dilatation of the ascending aorta. There is no dilatation of the aortic root. Venous: The inferior vena cava appears normal in size. There is a greater than 50% respiratory change in the inferior vena cava dimension. Measurements Chambers 2D Name Value Normal Range IVSd (2D) 0.83 cm (0.6 - 1.1) LVPWd (2D) 0.98 cm (0.6 - 1.1) LVIDd (2D) 3.71 cm (3.7 - 5.6) LVIDs (2D) 2.93 cm (2 - 3.8) LV FS (2D) 21.12 % - EF Teichholz (2D) 43.71 % - Ao root diameter (2D) 3.02 cm (2 - 3.7) Volumes/Mass Name Value Normal Range LA ESV SP 4CH (A/L) 36.8 ml - LA ESV SP 2CH (A/L) 45.89 ml - LA ESV BP (A/L) 42.35 ml - LA ESV BP (A/L) index 26.63 ml/m2 - LA ESV SP 4CH (MOD) 34.42 ml - LA ESV SP 2CH (MOD) 44.21 ml - LA ESV BP (MOD) 39.82 ml - LA ESV BP (MOD) index 25.05 ml/m2 - Aortic Valve Name Value Normal Range LVOT diameter 1.63 cm - Tricuspid Valve Name Value Normal Range TR Vmax 2.56 m/sec - TR peak gradient 26 mmHg - RAP 3 mmHg - RVSP 29 mmHg - IVC diameter 1.83 cm (1.2 - 2.3) [place]/IV: Voiding Method Incontinent IV Catheter Type [Forearm] Peripheral IV IV Catheter Type [Left Forearm INT / Saline Lock ] IV Catheter Type [Right INT / Saline Lock Antecubital] IV Catheter Type [Right Hand] INT / Saline Lock IV Catheter Type [Right Wrist] Peripheral IV IV Catheter Type [Left Wrist] Peripheral IV IV Catheter Type [Left Peripheral IV Antecubital] IV Catheter Type [Right INT / Saline Lock Forearm] IV Catheter Type [Left Hand] INT / Saline Lock Active Medications - Current Medications Current Medications: Generic Name Dose Route Start Last Admin Trade Name Freq PRN Reason Stop Dose Admin Albuterol 2.5 mg 03/25/20 19:25 04/07/20 08:59 Proventil IH 2.5 mg Q4HRT PRN Administration Shortness Of Breath Albuterol/Ipratropium 1 ampul 03/30/20 20:00 04/09/20 07:22 Duoneb *Not For Prn Use* IH 1 ampul BIDRT LUCHO Administration Lipase/Protease/Amylase 1 each 11/23/19 11:50 Pancreaze 10,500 Unit FEEDTUBE PRN PRN Use w/ sod bicarb for FT Bisacodyl 10 mg 02/06/20 13:57 Dulcolax LA QDAY PRN Constipation unrelieved by MOM Enoxaparin Sodium 40 mg 03/07/20 22:00 04/08/20 21:57 Enoxaparin SUB-Q 40 mg QDAY@2200 LUCHO Administration Glycopyrrolate 2 mg 12/31/19 20:00 04/09/20 14:31 Robinul PO 2 mg TID LUCHO Administration Haloperidol Lactate 5 mg 03/05/20 09:22 04/03/20 22:52 Haldol IM 5 mg Q6H PRN Administration Agitation Hydralazine HCl 10 mg 11/24/19 00:45 03/03/20 05:57 Apresoline IV 10 mg Q6H PRN Administration SBP > 160 Hydroxyzine Pamoate 25 mg 12/06/19 10:00 04/09/20 09:33 Vistaril PO 25 mg BID LUCHO Administration Lansoprazole 30 mg 11/27/19 10:00 04/09/20 09:33 Prevacid Solutab FEEDTUBE 30 mg QDAY LUCHO Administration Levetiracetam 500 mg 11/29/19 10:00 04/09/20 09:33 Keppra PO 500 mg BID LUCHO Administration Mirtazapine 30 mg 12/06/19 10:00 04/09/20 09:32 Remeron PO 30 mg DAILY LUCHO Administration Nicotine 21 mg 02/16/20 13:00 04/09/20 09:32 Habitrol TD 21 mg QDAY LUCHO Administration Ondansetron HCl 4 mg 12/10/19 07:53 02/25/20 02:51 Zofran IV 4 mg Q4H PRN Administration Nausea And Vomiting Polyethylene Glycol 17 gm 02/06/20 13:57 Miralax 3350 PO QDAY PRN Constipation Quetiapine Fumarate 100 mg 03/06/20 10:00 04/09/20 09:33 Seroquel FEEDTUBE 100 mg BID LUCHO Administration Scopolamine 1 each 02/08/20 15:00 04/08/20 10:15 Transderm-Scop TD 1 each Q3D LUCHO Administration Sertraline HCl 25 mg 01/01/20 10:00 04/09/20 09:33 Zoloft PO 25 mg QDAY LUCHO Administration Simple Syrup 15 ml 11/23/19 11:50 Simple Syrup FEEDTUBE PRN PRN Hypoglycemia BG<70 Simple Syrup 30 ml 11/23/19 11:50 Simple Syrup FEEDTUBE PRN PRN Hypoglycemia Sodium Bicarbonate 325 mg 11/23/19 11:50 Sodium Bicarbonate FEEDTUBE PRN PRN For Clogged Feeding Tube Nutrition/Malnutrition Assess - Dietary Evaluation Nutrition/Malnutrition Findings: Nutrition Notes Start: 11/23/19 11 :29 Freq: Status: Active Protocol: Document 04/08/20 11:31 LM (Rec: 04/08/20 12:04 LM [id number]) Nutrition Notes Initial or Follow up Reassessment Other Pertinent Diagnosis s/p Cardiac arrest, acute metabolic encephalopathy Current Diet [facility] soft with chopped meats Labs/Tests Reviewed Pertinent Medications Reviewed Height 5 ft 6 in Weight 43.3 kg [place] Body Weight (kg) 59.09 BMI 15.4 Weight change and time frame wt change noted Subjective/Other Information Pt ate 50% of breakfast and drank 50% of ONS per chart. Percent of energy/protein needs met: 82%/100% (with one Ensure) Burn Absent Trauma Absent GI Symptoms None Current % PO Fair (50-74%) Minimum of two criteria Yes Interpretation of Weight Loss (severe) >2% in 1 week Muscle Mass Mild Depletion (non-severe) #2 Nutrition Diagnosis Malnutrition Diagnosis Progress(for reassessment Continues documentation) #1 Nutrition Diagnosis Inadequate oral intake As Evidenced by Signs and Symptoms pt eating 50% Diagnosis Progress(for reassessment Improved documentation) Is patient on ventilator? No Is Patient Ambulatory and/or Out of Bed No REE-([place]-confined to bed) 1258.464 Kcal/Kg value to use for calculation 35 Approximate Energy Requirements Using 1516 kcal/Kg Calculation Used for Recommendations Kcal/kg Additional Notes Pro needs 1.2-1.5g/k-74g/ day Fluid needs 1ml/kcal Nutrition Intervention Change Diet Order: Continue current diet order; provide assistance at meal times as needed Add Supplement/Snack (indicate name/kcal Ensure Enlive TID /protein ) Provides kCal: 1,050 Provides Protein (gm) 60 Goal #1 PO intake of meals plus ONS to meet 100% energy and pro needs Goal #2 Wt maintenance and/or gain Anticipated Discharge Needs: Continue ONS 1-2 times daily for wt maintenance Follow-Up By: 04/10/20 Additional Comments F/U for intakes
[2020-04-09] MEDS: ENOXAPARIN 40 MG/0.4 ML INJ SUB-Q SCH (22:43)
[2020-04-09] MEDS: HALOPERIDOL LACTATE 5 MG/1 ML INJ IM PRN (22:44)
[2020-04-10] MEDS: IPRATROPIUM/ALBUTEROL SULFATE 3 ML AMPUL.NEB IH SCH (08:45)
[2020-04-10] MEDS: levETIRAcetam 500 MG/5 ML ORAL LIQD PO SCH ×2 (09:24→21:33)
[2020-04-10] MEDS: SERTRALINE 50 MG TAB PO SCH (09:24)
[2020-04-10] MEDS: LANSOPRAZOLE 30 MG SOLUTAB FEEDTUBE SCH (09:24)
[2020-04-10] MEDS: hydrOXYzine PAMOATE 25 MG CAP PO SCH ×2 (09:25→21:33)
[2020-04-10] MEDS: MIRTAZAPINE 30 MG TAB PO SCH (09:25)
[2020-04-10] MEDS: GLYCOPYRROLATE 1 MG TAB PO SCH ×3 (09:25→21:32)
[2020-04-10] MEDS: NICOTINE 21 MG/24 HR PATCH TD SCH (09:26)
[2020-04-10] MEDS: QUEtiapine 100 MG TAB FEEDTUBE SCH ×2 (09:30→21:33)
[2020-04-10] MEDS: ENOXAPARIN 40 MG/0.4 ML INJ SUB-Q SCH (21:33)
[2020-04-10] MEDS: HALOPERIDOL LACTATE 5 MG/1 ML INJ IM PRN (21:34)
[2020-04-11] MEDS: hydrALAZINE 20 MG/1 ML INJ IV PRN (06:47)
--- NOTE | 2020-04-11 08:18 | Progress Note ---
Assessment and Plan Cardiopulmonary arrest outside the hospital; Status post CPR' Anoxic brain injury: suspected CT head: No acute abnormality. EEG ordered showed Generalized slowing. No seizures or epileptiform activity. -Patient now alert and awake responding appropriately -As needed haldol for agitation Acute metabolic encephalopathy/toxic encephalopathy due to the above - cont supportive care Acute Respiratory failure status post trach and PEG 12/13/2019 Tracheostomy site healed, site ulceration; resolved Anemia, microcytic - Status post 3 units PRBC transfusion, H&H low stable Hyperammonemia - likely from liver disease related to EtOH abuse - Patient had elevated ammonia level and treated with lactulose Metabolic Acidosis -Alcohol ketoacidosis vs hypoprofusion -Continue to monitor ELevated LFTs, stable now - due to ischemic hepatitis. Leucocytosis with sepsis - Source MRSA bacteremia and MSSA pneumonia. UA showed pyuria. RUQ US showed no ascites. - Repeat TTE negative for vegetation. Completed 7 days of Ceftriaxone on 020. -Treated with Abx vancomycin 1 gm IV q 12 hour total 2 week till 12/30/2019 Severe protein calorie malnutrition Dietitian following MSSA pneumonia: Status post vancomycin till 12/30/2019 Alcohol use Disorder - given ongoing Alcohol use almost daily, s/p IV Thiamine - monitor Severe hypokalemia -Repleted Seizure disorder: treated with Keppra H. Influenzae, tracheobronchitis, treated with abx Moderate to severe fecal impaction - will add stool softner DNR CODE STATUS Awaiting placement 03/25/2020. Patient is s/p cardiac arrest, extubated and decannulated with stoma healing. Await placement per case management. 03/26/2020. Awaiting placement. 03/27/2020. Continue to work with case management for placement. Patient requiring restraints for safety. 04/06/20; patient remains in restraints secondary to agitation confusion and risk of fall, awaiting placement 04/07/20; patient clinically stable, awaiting placement 04/09/20; patient remains confused, agitated requiring restraints for safety, awaiting placement 04/10/20 patient remains confused which is his baseline waiting for placement-- Subjective Date of service: 04/10/20 Principal diagnosis: Ac cardiopulmonary arrest; Ac hypoxemic resp failure; Acute encephalopathy Interval history: 54-year-old female with a past medical history of Hypertension, Depression, Tobacco use Disorder, Alcohol use Disorder as confirmed by Daughter and pt's mother presents to the hospital status post cardiac arrest. Patient is from home and family called EMS at 22: 27 for the pt who had told family members that she was not feeling good and c/o her chronic hip pain. She urinated and then was speaking, then she " froze and was rigid " per daughter and she became unresponsive and stopped breathing. Immediately, family began CPR. EMS found pt in PEA. Upon their arrival patient in SinuS Tachycardia.. They were unable to intubate patient with a ET tube because she was clenching down therefore Joe airway placed. Patient received Narcan and Epinephrine. Patient's rhythm changed to PEA to sinus bradycardia, to PEA, then to sinus tach after receiving Narcan and Epinephrine. Per the ED physician who evaluated pt, Patient presented with a pulse, intermittent respirations, and bagging support via Joe airway with O2 sat of 100%. Accu-Chek of 71 obtained by EMS Spoke to patient's family (daughter and mother). MOther is Anh Jesus- [phone] and she would like to be called about pt's progress or notified about the pt.. No seizure activity was noted. They deny that patient had any preceding infection symptoms, cough, fever, complaints of chest pain, shortness of breath, or any bleeding diathesis, melena, hematochezia, hematuria, hematemesis, or abdominal pain. Patient is a known alcoholic and continues to drink per daughter. No history could be obtained from the pt due to her mechanical ventilation. No previous hx of DVT/PE per mother and daughter. Patient waiting for placement Objective - Constitutional Vitals: Vital Signs - 12hr 04/10/20 04/10/20 04/11/20 22:00 23:51 06:25 Temperature 98.0 F 97.6 F Pulse Rate 90 76 Respiratory 20 18 18 Rate Blood Pressure 144/93 168/92 O2 Sat by Pulse 100 100 99 Oximetry 04/11/20 06:47 Temperature Pulse Rate 76 Respiratory Rate Blood Pressure 168/92 O2 Sat by Pulse Oximetry General appearance: Present: no acute distress, well-nourished - EENT Eyes: PERRL, EOM intact ENT: hearing intact, clear oral mucosa Ears: bilateral: normal - Neck Neck: supple, normal ROM - Respiratory Respiratory effort: normal Respiratory: bilateral: CTA - Breasts Breasts: normal - Cardiovascular Heart rate: 78 Rhythm: regular Heart Sounds: Present: S1 & S2. Absent: gallop, rub Extremities: pulses intact, No edema, normal color, Full ROM - Gastrointestinal General gastrointestinal: Present: soft, non-tender, non-distended, normal bowel sounds - Genitourinary Female genitourinary: normal - Integumentary Integumentary: clear, warm, dry - Musculoskeletal Musculoskeletal: 1, strength equal bilaterally - Neurologic Neurologic: moves all extremities - Psychiatric Psychiatric: memory intact, appropriate mood/affect, intact judgment & insight - Labs CBC & Chem 7: 04/16/20 09:02 04/16/20 05:00 HEART Score - HEART Score Troponin: Troponin T < 0.010 ng/mL (0.00-0.029) 11/22/19 23:27
[2020-04-11] MEDS: NICOTINE 21 MG/24 HR PATCH TD SCH (10:32)
[2020-04-11] MEDS: GLYCOPYRROLATE 1 MG TAB PO SCH ×3 (10:33→21:09)
[2020-04-11] MEDS: hydrOXYzine PAMOATE 25 MG CAP PO SCH ×2 (10:33→21:10)
[2020-04-11] MEDS: levETIRAcetam 500 MG/5 ML ORAL LIQD PO SCH ×2 (10:33→21:09)
[2020-04-11] MEDS: SCOPOLAMINE TRANSDERMAL PATCH 72 HR TD SCH (10:34)
[2020-04-11] MEDS: MIRTAZAPINE 30 MG TAB PO SCH (10:34)
[2020-04-11] MEDS: LANSOPRAZOLE 30 MG SOLUTAB FEEDTUBE SCH (10:34)
[2020-04-11] MEDS: SERTRALINE 50 MG TAB PO SCH (10:34)
[2020-04-11] MEDS: QUEtiapine 100 MG TAB FEEDTUBE SCH ×2 (10:34→21:10)
--- NOTE | 2020-04-11 16:45 | Progress Note ---
Assessment and Plan Cardiopulmonary arrest outside the hospital; Status post CPR' Anoxic brain injury: suspected CT head: No acute abnormality. EEG ordered showed Generalized slowing. No seizures or epileptiform activity. -Patient now alert and awake responding appropriately -As needed haldol for agitation Acute metabolic encephalopathy/toxic encephalopathy due to the above - cont supportive care Acute Respiratory failure status post trach and PEG 12/13/2019 Tracheostomy site healed, site ulceration; resolved Anemia, microcytic - Status post 3 units PRBC transfusion, H&H low stable Hyperammonemia - likely from liver disease related to EtOH abuse - Patient had elevated ammonia level and treated with lactulose Metabolic Acidosis -Alcohol ketoacidosis vs hypoprofusion -Continue to monitor ELevated LFTs, stable now - due to ischemic hepatitis. Leucocytosis with sepsis - Source MRSA bacteremia and MSSA pneumonia. UA showed pyuria. RUQ US showed no ascites. - Repeat TTE negative for vegetation. Completed 7 days of Ceftriaxone on 020. -Treated with Abx vancomycin 1 gm IV q 12 hour total 2 week till 12/30/2019 Severe protein calorie malnutrition Dietitian following MSSA pneumonia: Status post vancomycin till 12/30/2019 Alcohol use Disorder - given ongoing Alcohol use almost daily, s/p IV Thiamine - monitor Severe hypokalemia -Repleted Seizure disorder: treated with Keppra H. Influenzae, tracheobronchitis, treated with abx Moderate to severe fecal impaction - will add stool softner DNR CODE STATUS Awaiting placement 03/25/2020. Patient is s/p cardiac arrest, extubated and decannulated with stoma healing. Await placement per case management. 03/26/2020. Awaiting placement. 03/27/2020. Continue to work with case management for placement. Patient requiring restraints for safety. 04/06/20; patient remains in restraints secondary to agitation confusion and risk of fall, awaiting placement 04/07/20; patient clinically stable, awaiting placement 04/09/20; patient remains confused, agitated requiring restraints for safety, awaiting placement 04/10/20 patient remains confused which is his baseline waiting for placement- 04/11/2020 patient waiting for placement- Subjective Date of service: 04/11/20 Principal diagnosis: Ac cardiopulmonary arrest; Ac hypoxemic resp failure; Acute encephalopathy Interval history: 54-year-old female with a past medical history of Hypertension, Depression, Tobacco use Disorder, Alcohol use Disorder as confirmed by Daughter and pt's mother presents to the hospital status post cardiac arrest. Patient is from home and family called EMS at 22: 27 for the pt who had told family members that she was not feeling good and c/o her chronic hip pain. She urinated and then was speaking, then she " froze and was rigid " per daughter and she became unresponsive and stopped breathing. Immediately, family began CPR. EMS found pt in PEA. Upon their arrival patient in SinuS Tachycardia.. They were unable to intubate patient with a ET tube because she was clenching down therefore Joe airway placed. Patient received Narcan and Epinephrine. Patient's rhythm changed to PEA to sinus bradycardia, to PEA, then to sinus tach after receiving Narcan and Epinephrine. Per the ED physician who evaluated pt, Patient presented with a pulse, intermittent respirations, and bagging support via Joe airway with O2 sat of 100%. Accu-Chek of 71 obtained by EMS Spoke to patient's family (daughter and mother). MOther is Anh Jesus- [phone] and she would like to be called about pt's progress or notified about the pt.. No seizure activity was noted. They deny that patient had any preceding infection symptoms, cough, fever, complaints of chest pain, shortness of breath, or any bleeding diathesis, melena, hematochezia, hematuria, hematemesis, or abdominal pain. Patient is a known alcoholic and continues to drink per daughter. No history could be obtained from the pt due to her mechanical ventilation. No previous hx of DVT/PE per mother and daughter. Patient was extubated Patient waiting for placement Objective - Constitutional Vitals: Vital Signs - 12hr 04/11/20 04/11/20 04/11/20 06:25 06:47 07:44 Temperature 97.6 F 98.2 F Pulse Rate 76 76 82 Respiratory 18 18 Rate Blood Pressure 168/92 168/92 151/93 O2 Sat by Pulse 99 100 Oximetry 04/11/20 09:55 Temperature 98.1 F Pulse Rate Respiratory 18 Rate Blood Pressure 127/89 O2 Sat by Pulse Oximetry General appearance: Present: no acute distress, well-nourished - EENT Eyes: PERRL, EOM intact ENT: hearing intact, clear oral mucosa Ears: bilateral: normal - Neck Neck: supple, normal ROM - Respiratory Respiratory effort: normal Respiratory: bilateral: CTA - Breasts Breasts: normal - Cardiovascular Heart rate: 78 Rhythm: regular Heart Sounds: Present: S1 & S2. Absent: gallop, rub Extremities: pulses intact, No edema, normal color, Full ROM - Gastrointestinal General gastrointestinal: Present: soft, non-tender, non-distended, normal bowel sounds - Genitourinary Female genitourinary: normal - Integumentary Integumentary: clear, warm, dry - Musculoskeletal Musculoskeletal: 1, strength equal bilaterally - Neurologic Neurologic: moves all extremities - Psychiatric Psychiatric: memory intact, appropriate mood/affect, intact judgment & insight - Labs CBC & Chem 7: 04/16/20 09:02 04/16/20 05:00 Labs: Abnormal lab results 04/11/20 04/11/20 Range/Units 12:27 15:54 POC Glucose 123 H 114 H (70-105) HEART Score - HEART Score Troponin: Troponin T < 0.010 ng/mL (0.00-0.029) 11/22/19 23:27
[2020-04-11] MEDS: ENOXAPARIN 40 MG/0.4 ML INJ SUB-Q SCH (21:10)
[2020-04-11] MEDS: HALOPERIDOL LACTATE 5 MG/1 ML INJ IM PRN (21:10)
[2020-04-12] MEDS: GLYCOPYRROLATE 1 MG TAB PO SCH ×3 (08:25→21:26)
[2020-04-12] MEDS: LANSOPRAZOLE 30 MG SOLUTAB FEEDTUBE SCH (10:32)
[2020-04-12] MEDS: levETIRAcetam 500 MG/5 ML ORAL LIQD PO SCH ×2 (10:32→21:26)
[2020-04-12] MEDS: QUEtiapine 100 MG TAB FEEDTUBE SCH ×2 (10:32→21:26)
[2020-04-12] MEDS: NICOTINE 21 MG/24 HR PATCH TD SCH (10:32)
[2020-04-12] MEDS: SERTRALINE 50 MG TAB PO SCH (10:33)
[2020-04-12] MEDS: hydrOXYzine PAMOATE 25 MG CAP PO SCH ×2 (10:33→21:26)
[2020-04-12] MEDS: MIRTAZAPINE 30 MG TAB PO SCH (10:33)
[2020-04-12] MEDS: HALOPERIDOL LACTATE 5 MG/1 ML INJ IM PRN (16:36)
--- NOTE | 2020-04-12 17:02 | Progress Note ---
Assessment and Plan Cardiopulmonary arrest outside the hospital; Status post CPR' Anoxic brain injury: suspected CT head: No acute abnormality. EEG ordered showed Generalized slowing. No seizures or epileptiform activity. -Patient now alert and awake responding appropriately -As needed haldol for agitation Acute metabolic encephalopathy/toxic encephalopathy due to the above - cont supportive care Acute Respiratory failure status post trach and PEG 12/13/2019 Tracheostomy site healed, site ulceration; resolved Anemia, microcytic - Status post 3 units PRBC transfusion, H&H low stable Hyperammonemia - likely from liver disease related to EtOH abuse - Patient had elevated ammonia level and treated with lactulose Metabolic Acidosis -Alcohol ketoacidosis vs hypoprofusion -Continue to monitor ELevated LFTs, stable now - due to ischemic hepatitis. Leucocytosis with sepsis - Source MRSA bacteremia and MSSA pneumonia. UA showed pyuria. RUQ US showed no ascites. - Repeat TTE negative for vegetation. Completed 7 days of Ceftriaxone on 020. -Treated with Abx vancomycin 1 gm IV q 12 hour total 2 week till 12/30/2019 Severe protein calorie malnutrition Dietitian following MSSA pneumonia: Status post vancomycin till 12/30/2019 Alcohol use Disorder - given ongoing Alcohol use almost daily, s/p IV Thiamine - monitor Severe hypokalemia -Repleted Seizure disorder: treated with Keppra H. Influenzae, tracheobronchitis, treated with abx Moderate to severe fecal impaction - will add stool softner DNR CODE STATUS Awaiting placement 03/25/2020. Patient is s/p cardiac arrest, extubated and decannulated with stoma healing. Await placement per case management. 03/26/2020. Awaiting placement. 03/27/2020. Continue to work with case management for placement. Patient requiring restraints for safety. 04/06/20; patient remains in restraints secondary to agitation confusion and risk of fall, awaiting placement 04/07/20; patient clinically stable, awaiting placement 04/09/20; patient remains confused, agitated requiring restraints for safety, awaiting placement 04/10/20 patient remains confused which is his baseline waiting for placement- 04/11/2020 patient waiting for placement- 04/12/2020 Waiting for placement Subjective Date of service: 04/12/20 Principal diagnosis: Ac cardiopulmonary arrest; Ac hypoxemic resp failure; Acute encephalopathy Interval history: 54-year-old female with a past medical history of Hypertension, Depression, Tobacco use Disorder, Alcohol use Disorder as confirmed by Daughter and pt's mother presents to the hospital status post cardiac arrest. Patient is from home and family called EMS at 22: 27 for the pt who had told family members that she was not feeling good and c/o her chronic hip pain. She urinated and then was speaking, then she " froze and was rigid " per daughter and she became unresponsive and stopped breathing. Immediately, family began CPR. EMS found pt in PEA. Upon their arrival patient in SinuS Tachycardia.. They were unable to intubate patient with a ET tube because she was clenching down therefore Joe airway placed. Patient received Narcan and Epinephrine. Patient's rhythm changed to PEA to sinus bradycardia, to PEA, then to sinus tach after receiving Narcan and Epinephrine. Per the ED physician who evaluated pt, Patient presented with a pulse, intermittent respirations, and bagging support via Joe airway with O2 sat of 100%. Accu-Chek of 71 obtained by EMS Spoke to patient's family (daughter and mother). MOther is Anh Jesus- [phone] and she would like to be called about pt's progress or notified about the pt.. No seizure activity was noted. They deny that patient had any preceding infection symptoms, cough, fever, complaints of chest pain, shortness of breath, or any bleeding diathesis, melena, hematochezia, hematuria, he matemesis, or abdominal pain. Patient is a known alcoholic and continues to drink per daughter. No history could be obtained from the pt due to her mechanical ventilation. No previous hx of DVT/PE per mother and daughter. Patient was extubated after prolonged weaning Patient waiting for placement Objective - Constitutional Vitals: Vital Signs - 12hr 04/12/20 05:43 Temperature 98.4 F Pulse Rate 77 Respiratory 18 Rate Blood Pressure 162/92 O2 Sat by Pulse 100 Oximetry General appearance: Present: no acute distress, well-nourished - EENT Eyes: PERRL, EOM intact ENT: hearing intact, clear oral mucosa Ears: bilateral: normal - Neck Neck: supple, normal ROM - Respiratory Respiratory effort: normal Respiratory: bilateral: CTA - Breasts Breasts: normal - Cardiovascular Heart rate: 78 Rhythm: regular Heart Sounds: Present: S1 & S2. Absent: gallop, rub Extremities: pulses intact, No edema, normal color, Full ROM - Gastrointestinal General gastrointestinal: Present: soft, non-tender, non-distended, normal bowel sounds - Genitourinary Female genitourinary: normal - Integumentary Integumentary: clear, warm, dry - Musculoskeletal Musculoskeletal: 1, strength equal bilaterally - Neurologic Neurologic: moves all extremities - Psychiatric Psychiatric: memory intact, appropriate mood/affect, intact judgment & insight - Labs CBC & Chem 7: 04/16/20 09:02 04/16/20 05:00 Labs: Abnormal lab results 04/11/20 Range/Units 21:55 POC Glucose 126 H (70-105) HEART Score - HEART Score Troponin: Troponin T < 0.010 ng/mL (0.00-0.029) 11/22/19 23:27
[2020-04-12] MEDS: ENOXAPARIN 40 MG/0.4 ML INJ SUB-Q SCH (21:26)
[2020-04-13] MEDS: GLYCOPYRROLATE 1 MG TAB PO SCH ×3 (09:06→21:24)
[2020-04-13] MEDS: SERTRALINE 50 MG TAB PO SCH (10:05)
[2020-04-13] MEDS: levETIRAcetam 500 MG/5 ML ORAL LIQD PO SCH ×2 (10:05→21:24)
[2020-04-13] MEDS: QUEtiapine 100 MG TAB FEEDTUBE SCH ×2 (10:05→21:23)
[2020-04-13] MEDS: hydrOXYzine PAMOATE 25 MG CAP PO SCH ×2 (10:06→21:24)
[2020-04-13] MEDS: MIRTAZAPINE 30 MG TAB PO SCH (10:06)
[2020-04-13] MEDS: NICOTINE 21 MG/24 HR PATCH TD SCH (10:06)
[2020-04-13] MEDS: LANSOPRAZOLE 30 MG SOLUTAB FEEDTUBE SCH (10:06)
--- NOTE | 2020-04-13 16:16 | Progress Note ---
Assessment and Plan Cardiopulmonary arrest outside the hospital; Status post CPR' Anoxic brain injury: suspected CT head: No acute abnormality. EEG ordered showed Generalized slowing. No seizures or epileptiform activity. -Patient now alert and awake responding appropriately -As needed haldol for agitation Acute metabolic encephalopathy/toxic encephalopathy due to the above - cont supportive care Acute Respiratory failure status post trach and PEG 12/13/2019 Tracheostomy site healed, site ulceration; resolved Anemia, microcytic - Status post 3 units PRBC transfusion, H&H low stable Hyperammonemia - likely from liver disease related to EtOH abuse - Patient had elevated ammonia level and treated with lactulose Metabolic Acidosis -Alcohol ketoacidosis vs hypoprofusion -Continue to monitor ELevated LFTs, stable now - due to ischemic hepatitis. Leucocytosis with sepsis - Source MRSA bacteremia and MSSA pneumonia. UA showed pyuria. RUQ US showed no ascites. - Repeat TTE negative for vegetation. Completed 7 days of Ceftriaxone on 020. -Treated with Abx vancomycin 1 gm IV q 12 hour total 2 week till 12/30/2019 Severe protein calorie malnutrition Dietitian following MSSA pneumonia: Status post vancomycin till 12/30/2019 Alcohol use Disorder - given ongoing Alcohol use almost daily, s/p IV Thiamine - monitor Severe hypokalemia -Repleted Seizure disorder: treated with Keppra H. Influenzae, tracheobronchitis, treated with abx Moderate to severe fecal impaction - will add stool softner DNR CODE STATUS Awaiting placement 03/25/2020. Patient is s/p cardiac arrest, extubated and decannulated with stoma healing. Await placement per case management. 03/26/2020. Awaiting placement. 03/27/2020. Continue to work with case management for placement. Patient requiring restraints for safety. 04/06/20; patient remains in restraints secondary to agitation confusion and risk of fall, awaiting placement 04/07/20; patient clinically stable, awaiting placement 04/09/20; patient remains confused, agitated requiring restraints for safety, awaiting placement 04/10/20 patient remains confused which is his baseline waiting for placement- 04/11/2020 patient waiting for placement- 04/12/2020 Waiting for placement Subjective Date of service: 04/13/20 Principal diagnosis: Ac cardiopulmonary arrest; Ac hypoxemic resp failure; Acute encephalopathy Interval history: 54-year-old female with a past medical history of Hypertension, Depression, Tobacco use Disorder, Alcohol use Disorder as confirmed by Daughter and pt's mother presents to the hospital status post cardiac arrest. Patient is from home and family called EMS at 22: 27 for the pt who had told family members that she was not feeling good and c/o her chronic hip pain. She urinated and then was speaking, then she " froze and was rigid " per daughter and she became unresponsive and stopped breathing. Immediately, family began CPR. EMS found pt in PEA. Upon their arrival patient in SinuS Tachycardia.. They were unable to intubate patient with a ET tube because she was clenching down therefore Joe airway placed. Patient received Narcan and Epinephrine. Patient's rhythm changed to PEA to sinus bradycardia, to PEA, then to sinus tach after receiving Narcan and Epinephrine. Per the ED physician who evaluated pt, Patient presented with a pulse, intermittent respirations, and bagging support via Joe airway with O2 sat of 100%. Accu-Chek of 71 obtained by EMS Spoke to patient's family (daughter and mother). MOther is Anh Jesus- [phone] and she would like to be called about pt's progress or notified about the pt.. No seizure activity was noted. They deny that patient had any preceding infection symptoms, cough, fever, complaints of chest pain, shortness of breath, or any bleeding diathesis, melena, hematochezia, hematuria, he matemesis, or abdominal pain. Patient is a known alcoholic and continues to drink per daughter. No history could be obtained from the pt due to her mechanical ventilation. No previous hx of DVT/PE per mother and daughter. Patient was extubated after prolonged weaning Patient waiting for placement Objective - Constitutional Vitals: Vital Signs - 12hr 04/13/20 04/13/20 04/13/20 04:32 08:16 10:00 Temperature 97.8 F 97.7 F Pulse Rate 102 H 85 Pulse Rate [ 76 Apical] Respiratory 20 18 17 Rate Blood Pressure 138/80 129/86 O2 Sat by Pulse 100 97 100 Oximetry General appearance: Present: no acute distress, well-nourished - EENT Eyes: PERRL, EOM intact ENT: hearing intact, clear oral mucosa Ears: bilateral: normal - Neck Neck: supple, normal ROM - Respiratory Respiratory effort: normal Respiratory: bilateral: CTA - Breasts Breasts: normal - Cardiovascular Rhythm: regular Heart Sounds: Present: S1 & S2. Absent: gallop, rub Extremities: pulses intact, No edema, normal color, Full ROM - Gastrointestinal General gastrointestinal: Present: soft, non-tender, non-distended, normal bowel sounds - Genitourinary Female genitourinary: normal - Integumentary Integumentary: clear, warm, dry - Musculoskeletal Musculoskeletal: 1, strength equal bilaterally - Neurologic Neurologic: moves all extremities - Psychiatric Psychiatric: memory intact, appropriate mood/affect, intact judgment & insight - Labs CBC & Chem 7: 04/16/20 09:02 04/16/20 05:00 HEART Score - HEART Score Troponin: Troponin T < 0.010 ng/mL (0.00-0.029) 11/22/19 23:27
[2020-04-13] MEDS: ENOXAPARIN 40 MG/0.4 ML INJ SUB-Q SCH (21:24)
[2020-04-14] MEDS: HALOPERIDOL LACTATE 5 MG/1 ML INJ IM PRN ×2 (08:35→21:02)
[2020-04-14] MEDS: GLYCOPYRROLATE 1 MG TAB PO SCH ×3 (08:35→20:45)
[2020-04-14] MEDS: hydrOXYzine PAMOATE 25 MG CAP PO SCH ×2 (09:06→21:02)
[2020-04-14] MEDS: SERTRALINE 50 MG TAB PO SCH (09:07)
[2020-04-14] MEDS: LANSOPRAZOLE 30 MG SOLUTAB FEEDTUBE SCH (09:07)
[2020-04-14] MEDS: QUEtiapine 100 MG TAB FEEDTUBE SCH ×2 (09:07→21:02)
[2020-04-14] MEDS: levETIRAcetam 500 MG/5 ML ORAL LIQD PO SCH ×2 (09:07→21:02)
[2020-04-14] MEDS: NICOTINE 21 MG/24 HR PATCH TD SCH (09:07)
[2020-04-14] MEDS: MIRTAZAPINE 30 MG TAB PO SCH (09:07)
[2020-04-14] MEDS: SCOPOLAMINE TRANSDERMAL PATCH 72 HR TD SCH (09:30)
[2020-04-14] MEDS: ENOXAPARIN 40 MG/0.4 ML INJ SUB-Q SCH (21:02)
[2020-04-15] MEDS: GLYCOPYRROLATE 1 MG TAB PO SCH ×3 (08:20→20:15)
--- NOTE | 2020-04-15 09:10 | Progress Note ---
Assessment and Plan Cardiopulmonary arrest outside the hospital; Status post CPR' Anoxic brain injury: suspected CT head: No acute abnormality. EEG ordered showed Generalized slowing. No seizures or epileptiform activity. -Patient now alert and awake responding appropriately -As needed haldol for agitation Acute metabolic encephalopathy/toxic encephalopathy due to the above - cont supportive care Acute Respiratory failure status post trach and PEG 12/13/2019 Tracheostomy site healed, site ulceration; resolved Anemia, microcytic - Status post 3 units PRBC transfusion, H&H low stable Hyperammonemia - likely from liver disease related to EtOH abuse - Patient had elevated ammonia level and treated with lactulose Metabolic Acidosis -Alcohol ketoacidosis vs hypoprofusion -Continue to monitor ELevated LFTs, stable now - due to ischemic hepatitis. Leucocytosis with sepsis - Source MRSA bacteremia and MSSA pneumonia. UA showed pyuria. RUQ US showed no ascites. - Repeat TTE negative for vegetation. Completed 7 days of Ceftriaxone on 020. -Treated with Abx vancomycin 1 gm IV q 12 hour total 2 week till 12/30/2019 Severe protein calorie malnutrition Dietitian following MSSA pneumonia: Status post vancomycin till 12/30/2019 Alcohol use Disorder - given ongoing Alcohol use almost daily, s/p IV Thiamine - monitor Severe hypokalemia -Repleted Seizure disorder: treated with Keppra H. Influenzae, tracheobronchitis, treated with abx Moderate to severe fecal impaction - will add stool softner DNR CODE STATUS Awaiting placement 03/25/2020. Patient is s/p cardiac arrest, extubated and decannulated with stoma healing. Await placement per case management. 03/26/2020. Awaiting placement. 03/27/2020. Continue to work with case management for placement. Patient requiring restraints for safety. 04/06/20; patient remains in restraints secondary to agitation confusion and risk of fall, awaiting placement 04/07/20; patient clinically stable, awaiting placement 04/09/20; patient remains confused, agitated requiring restraints for safety, awaiting placement 04/10/20 patient remains confused which is his baseline waiting for placement- 04/11/2020 patient waiting for placement- 04/12/2020 Waiting for placement Subjective Date of service: 04/14/20 Principal diagnosis: Ac cardiopulmonary arrest; Ac hypoxemic resp failure; Acute encephalopathy Interval history: 54-year-old female with a past medical history of Hypertension, Depression, Tobacco use Disorder, Alcohol use Disorder as confirmed by Daughter and pt's mother presents to the hospital status post cardiac arrest. Patient is from home and family called EMS at 22: 27 for the pt who had told family members that she was not feeling good and c/o her chronic hip pain. She urinated and then was speaking, then she " froze and was rigid " per daughter and she became unresponsive and stopped breathing. Immediately, family began CPR. EMS found pt in PEA. Upon their arrival patient in SinuS Tachycardia.. They were unable to intubate patient with a ET tube because she was clenching down therefore Joe airway placed. Patient received Narcan and Epinephrine. Patient's rhythm changed to PEA to sinus bradycardia, to PEA, then to sinus tach after receiving Narcan and Epinephrine. Per the ED physician who evaluated pt, Patient presented with a pulse, intermittent respirations, and bagging support via Joe airway with O2 sat of 100%. Accu-Chek of 71 obtained by EMS Spoke to patient's family (daughter and mother). MOther is Anh Jesus- [phone] and she would like to be called about pt's progress or notified about the pt.. No seizure activity was noted. They deny that patient had any preceding infection symptoms, cough, fever, complaints of chest pain, shortness of breath, or any bleeding diathesis, melena, hematochezia, hematuria, he matemesis, or abdominal pain. Patient is a known alcoholic and continues to drink per daughter. No history could be obtained from the pt due to her mechanical ventilation. No previous hx of DVT/PE per mother and daughter. Patient was extubated after prolonged weaning Patient waiting for placement Objective - Constitutional Vitals: Vital Signs - 12hr 04/15/20 04:42 Temperature 97.8 F Pulse Rate 82 Respiratory 18 Rate Blood Pressure 152/109 O2 Sat by Pulse 99 Oximetry General appearance: Present: no acute distress, well-nourished - EENT Eyes: PERRL, EOM intact ENT: hearing intact, clear oral mucosa Ears: bilateral: normal - Neck Neck: supple, normal ROM - Respiratory Respiratory effort: normal Respiratory: bilateral: CTA - Breasts Breasts: normal - Cardiovascular Heart rate: 78 Rhythm: regular Heart Sounds: Present: S1 & S2. Absent: gallop, rub Extremities: pulses intact, No edema, normal color, Full ROM - Gastrointestinal General gastrointestinal: Present: soft, non-tender, non-distended, normal bowel sounds - Genitourinary Female genitourinary: normal - Integumentary Integumentary: clear, warm, dry - Musculoskeletal Musculoskeletal: 1, strength equal bilaterally - Neurologic Neurologic: moves all extremities - Psychiatric Psychiatric: memory intact, appropriate mood/affect, intact judgment & insight - Labs CBC & Chem 7: 04/16/20 09:02 04/16/20 05:00 HEART Score - HEART Score Troponin: Troponin T < 0.010 ng/mL (0.00-0.029) 11/22/19 23:27
[2020-04-15] MEDS: hydrOXYzine PAMOATE 25 MG CAP PO SCH ×2 (10:59→22:40)
[2020-04-15] MEDS: LANSOPRAZOLE 30 MG SOLUTAB FEEDTUBE SCH (10:59)
[2020-04-15] MEDS: NICOTINE 21 MG/24 HR PATCH TD SCH (10:59)
[2020-04-15] MEDS: levETIRAcetam 500 MG/5 ML ORAL LIQD PO SCH ×2 (10:59→22:40)
[2020-04-15] MEDS: MIRTAZAPINE 30 MG TAB PO SCH (10:59)
[2020-04-15] MEDS: SERTRALINE 50 MG TAB PO SCH (10:59)
[2020-04-15] MEDS: QUEtiapine 100 MG TAB FEEDTUBE SCH ×2 (10:59→22:40)
--- NOTE | 2020-04-15 22:22 | Progress Note ---
Assessment and Plan Cardiopulmonary arrest outside the hospital; Status post CPR' Anoxic brain injury: suspected CT head: No acute abnormality. EEG ordered showed Generalized slowing. No seizures or epileptiform activity. -Patient now alert and awake responding appropriately -As needed haldol for agitation Acute metabolic encephalopathy/toxic encephalopathy due to the above - cont supportive care Acute Respiratory failure status post trach and PEG 12/13/2019 Tracheostomy site healed, site ulceration; resolved Anemia, microcytic - Status post 3 units PRBC transfusion, H&H low stable Hyperammonemia - likely from liver disease related to EtOH abuse - Patient had elevated ammonia level and treated with lactulose Metabolic Acidosis -Alcohol ketoacidosis vs hypoprofusion -Continue to monitor ELevated LFTs, stable now - due to ischemic hepatitis. Leucocytosis with sepsis - Source MRSA bacteremia and MSSA pneumonia. UA showed pyuria. RUQ US showed no ascites. - Repeat TTE negative for vegetation. Completed 7 days of Ceftriaxone on 020. -Treated with Abx vancomycin 1 gm IV q 12 hour total 2 week till 12/30/2019 Severe protein calorie malnutrition Dietitian following MSSA pneumonia: Status post vancomycin till 12/30/2019 Alcohol use Disorder - given ongoing Alcohol use almost daily, s/p IV Thiamine - monitor Severe hypokalemia -Repleted Seizure disorder: treated with Keppra H. Influenzae, tracheobronchitis, treated with abx Moderate to severe fecal impaction - will add stool softner DNR CODE STATUS Awaiting placement 03/25/2020. Patient is s/p cardiac arrest, extubated and decannulated with stoma healing. Await placement per case management. 03/26/2020. Awaiting placement. 03/27/2020. Continue to work with case management for placement. Patient requiring restraints for safety. 04/06/20; patient remains in restraints secondary to agitation confusion and risk of fall, awaiting placement 04/07/20; patient clinically stable, awaiting placement 04/09/20; patient remains confused, agitated requiring restraints for safety, awaiting placement 04/10/20 patient remains confused which is his baseline waiting for placement- 04/11/2020 patient waiting for placement- 04/12/2020 Waiting for placement Subjective Date of service: 04/15/20 Principal diagnosis: Ac cardiopulmonary arrest; Ac hypoxemic resp failure; Acute encephalopathy Interval history: 54-year-old female with a past medical history of Hypertension, Depression, Tobacco use Disorder, Alcohol use Disorder as confirmed by Daughter and pt's mother presents to the hospital status post cardiac arrest. Patient is from home and family called EMS at 22: 27 for the pt who had told family members that she was not feeling good and c/o her chronic hip pain. She urinated and then was speaking, then she " froze and was rigid " per daughter and she became unresponsive and stopped breathing. Immediately, family began CPR. EMS found pt in PEA. Upon their arrival patient in SinuS Tachycardia.. They were unable to intubate patient with a ET tube because she was clenching down therefore Joe airway placed. Patient received Narcan and Epinephrine. Patient's rhythm changed to PEA to sinus bradycardia, to PEA, then to sinus tach after receiving Narcan and Epinephrine. Per the ED physician who evaluated pt, Patient presented with a pulse, intermittent respirations, and bagging support via Joe airway with O2 sat of 100%. Accu-Chek of 71 obtained by EMS Spoke to patient's family (daughter and mother). MOther is Anh Jesus- [phone] and she would like to be called about pt's progress or notified about the pt.. No seizure activity was noted. They deny that patient had any preceding infection symptoms, cough, fever, complaints of chest pain, shortness of breath, or any bleeding diathesis, melena, hematochezia, hematuria, he matemesis, or abdominal pain. Patient is a known alcoholic and continues to drink per daughter. No history could be obtained from the pt due to her mechanical ventilation. No previous hx of DVT/PE per mother and daughter. Patient was extubated after prolonged weaning Patient waiting for placement Objective - Constitutional Vitals: Vital Signs - 12hr 04/15/20 04/15/20 04/15/20 11:39 17:55 20:26 Temperature 97.4 F L 97.5 F L 98.0 F Pulse Rate 102 H 97 H 100 H Respiratory 18 18 18 Rate Blood Pressure 137/99 154/94 102/40 O2 Sat by Pulse 97 90 91 Oximetry General appearance: Present: no acute distress, well-nourished - EENT Eyes: PERRL, EOM intact ENT: hearing intact, clear oral mucosa Ears: bilateral: normal - Neck Neck: supple, normal ROM - Respiratory Respiratory effort: normal Respiratory: bilateral: CTA - Breasts Breasts: normal - Cardiovascular Heart rate: 78 Rhythm: regular Heart Sounds: Present: S1 & S2. Absent: gallop, rub Extremities: pulses intact, No edema, normal color, Full ROM - Gastrointestinal General gastrointestinal: Present: soft, non-tender, non-distended, normal bowel sounds - Genitourinary Female genitourinary: normal - Integumentary Integumentary: clear, warm, dry - Musculoskeletal Musculoskeletal: 1, strength equal bilaterally - Neurologic Neurologic: moves all extremities - Psychiatric Psychiatric: memory intact, appropriate mood/affect, intact judgment & insight - Labs CBC & Chem 7: 04/16/20 09:02 04/16/20 05:00 HEART Score - HEART Score Troponin: Troponin T < 0.010 ng/mL (0.00-0.029) 11/22/19 23:27
[2020-04-15] MEDS: ENOXAPARIN 40 MG/0.4 ML INJ SUB-Q SCH (22:40)
[2020-04-16 09:04] LABS: BUN/Creatinine Ratio 40; Blood Urea Nitrogen 16 mg/dL (7-17); Hemolysis Index 22
[2020-04-16 09:58] LABS: Basophils # (Auto) 0.1 K/mm3 (0.0-0.1); Basophils % (Auto) 0.8 % (0.0-1.8); Eosinophils # (Auto) 0.1 K/mm3 (0.0-0.4); Eosinophils % (Auto) 0.9 % (0.0-4.3); Hemoglobin 11.8 gm/dl (10.1-14.3); Lymphocytes # (Auto) 1.7 K/mm3 (1.2-5.4); Lymphocytes % (Auto) 25.9 % (13.4-35.0); Mean Corpuscular HGB Conc 32 % (30-34); Mean Corpuscular Volume 90 fl (79-97); Monocytes # (Auto) 0.5 K/mm3 (0.0-0.8); Monocytes % (Auto) 7.4 % (0.0-7.3); Platelet Count 502 K/mm3 (140-440); Red Blood Count 4.13 M/mm3 (3.65-5.03); Red Cell Distribution Width 14.3 % (13.2-15.2)
[2020-04-16] MEDS: NICOTINE 21 MG/24 HR PATCH TD SCH (10:39)
[2020-04-16] MEDS: GLYCOPYRROLATE 1 MG TAB PO SCH ×3 (10:40→22:19)
[2020-04-16] MEDS: levETIRAcetam 500 MG/5 ML ORAL LIQD PO SCH ×2 (10:40→22:20)
[2020-04-16] MEDS: hydrOXYzine PAMOATE 25 MG CAP PO SCH ×2 (10:41→22:19)
[2020-04-16] MEDS: SERTRALINE 50 MG TAB PO SCH (10:41)
[2020-04-16] MEDS: MIRTAZAPINE 30 MG TAB PO SCH (10:41)
[2020-04-16] MEDS: QUEtiapine 100 MG TAB FEEDTUBE SCH ×2 (10:41→22:20)
[2020-04-16] MEDS: LANSOPRAZOLE 30 MG SOLUTAB FEEDTUBE SCH (10:42)
[2020-04-16] MEDS: ENOXAPARIN 40 MG/0.4 ML INJ SUB-Q SCH (22:20)
[2020-04-17] MEDS: NICOTINE 21 MG/24 HR PATCH TD SCH (11:36)
[2020-04-17] MEDS: SERTRALINE 50 MG TAB PO SCH (11:40)
[2020-04-17] MEDS: levETIRAcetam 500 MG/5 ML ORAL LIQD PO SCH ×2 (11:40→23:14)
[2020-04-17] MEDS: QUEtiapine 100 MG TAB FEEDTUBE SCH ×2 (11:40→23:14)
[2020-04-17] MEDS: LANSOPRAZOLE 30 MG SOLUTAB FEEDTUBE SCH (11:42)
[2020-04-17] MEDS: GLYCOPYRROLATE 1 MG TAB PO SCH ×3 (11:52→23:14)
[2020-04-17] MEDS: hydrOXYzine PAMOATE 25 MG CAP PO SCH ×2 (11:53→23:14)
[2020-04-17] MEDS: MIRTAZAPINE 30 MG TAB PO SCH (11:53)
[2020-04-17] MEDS: SCOPOLAMINE TRANSDERMAL PATCH 72 HR TD SCH (11:53)
[2020-04-17] MEDS: ENOXAPARIN 40 MG/0.4 ML INJ SUB-Q SCH (23:13)
[2020-04-18] MEDS: HALOPERIDOL LACTATE 5 MG/1 ML INJ IM PRN (00:25)
[2020-04-18] MEDS: LANSOPRAZOLE 30 MG SOLUTAB FEEDTUBE SCH (10:20)
[2020-04-18] MEDS: GLYCOPYRROLATE 1 MG TAB PO SCH ×3 (10:20→22:04)
[2020-04-18] MEDS: levETIRAcetam 500 MG/5 ML ORAL LIQD PO SCH ×2 (10:20→22:01)
[2020-04-18] MEDS: MIRTAZAPINE 30 MG TAB PO SCH (10:20)
[2020-04-18] MEDS: NICOTINE 21 MG/24 HR PATCH TD SCH (10:20)
[2020-04-18] MEDS: QUEtiapine 100 MG TAB FEEDTUBE SCH ×2 (10:21→22:01)
[2020-04-18] MEDS: hydrOXYzine PAMOATE 25 MG CAP PO SCH ×2 (10:21→22:04)
[2020-04-18] MEDS: SERTRALINE 50 MG TAB PO SCH (10:21)
--- NOTE | 2020-04-18 18:10 | Progress Note ---
Assessment and Plan Cardiopulmonary arrest outside the hospital; Status post CPR' Anoxic brain injury: suspected CT head: No acute abnormality. EEG ordered showed Generalized slowing. No seizures or epileptiform activity. -Patient now alert and awake responding appropriately -As needed haldol for agitation Acute metabolic encephalopathy/toxic encephalopathy due to the above - cont supportive care Acute Respiratory failure status post trach and PEG 12/13/2019 Tracheostomy site healed, site ulceration; resolved Anemia, microcytic - Status post 3 units PRBC transfusion, H&H low stable Hyperammonemia - likely from liver disease related to EtOH abuse - Patient had elevated ammonia level and treated with lactulose Metabolic Acidosis -Alcohol ketoacidosis vs hypoprofusion -Continue to monitor ELevated LFTs, stable now - due to ischemic hepatitis. Leucocytosis with sepsis - Source MRSA bacteremia and MSSA pneumonia. UA showed pyuria. RUQ US showed no ascites. - Repeat TTE negative for vegetation. Completed 7 days of Ceftriaxone on 020. -Treated with Abx vancomycin 1 gm IV q 12 hour total 2 week till 12/30/2019 Severe protein calorie malnutrition Dietitian following MSSA pneumonia: Status post vancomycin till 12/30/2019 Alcohol use Disorder - given ongoing Alcohol use almost daily, s/p IV Thiamine - monitor Severe hypokalemia -Repleted Seizure disorder: treated with Keppra H. Influenzae, tracheobronchitis, treated with abx Moderate to severe fecal impaction - will add stool softner DNR CODE STATUS Awaiting placement 03/25/2020. Patient is s/p cardiac arrest, extubated and decannulated with stoma healing. Await placement per case management. 03/26/2020. Awaiting placement. 03/27/2020. Continue to work with case management for placement. Patient requiring restraints for safety. 04/06/20; patient remains in restraints secondary to agitation confusion and risk of fall, awaiting placement 04/07/20; patient clinically stable, awaiting placement 04/09/20; patient remains confused, agitated requiring restraints for safety, awaiting placement 04/10/20 patient remains confused which is his baseline waiting for placement- 04/11/2020 patient waiting for placement- 04/12/2020 through 04/20/2020 Waiting for placement Subjective Date of service: 04/16/20 Principal diagnosis: Ac cardiopulmonary arrest; Ac hypoxemic resp failure; Acute encephalopathy Interval history: 54-year-old female with a past medical history of Hypertension, Depression, Tobacco use Disorder, Alcohol use Disorder as confirmed by Daughter and pt's mother presents to the hospital status post cardiac arrest. Patient is from home and family called EMS at 22: 27 for the pt who had told family members that she was not feeling good and c/o her chronic hip pain. She urinated and then was speaking, then she " froze and was rigid " per daughter and she became unresponsive and stopped breathing. Immediately, family began CPR. EMS found pt in PEA. Upon their arrival patient in SinuS Tachycardia.. They were unable to intubate patient with a ET tube because she was clenching down therefore Joe airway placed. Patient received Narcan and Epinephrine. Patient's rhythm changed to PEA to sinus bradycardia, to PEA, then to sinus tach after receiving Narcan and Epinephrine. Per the ED physician who evaluated pt, Patient presente d with a pulse, intermittent respirations, and bagging support via Joe airway with O2 sat of 100%. Accu-Chek of 71 obtained by EMS Spoke to patient's family (daughter and mother). MOther is Anh Jesus- [phone] and she would like to be called about pt's progress or notified about the pt.. No seizure activity was noted. They deny that patient had any preceding infection symptoms, cough, fever, complaints of chest pain, shortness of breath, or any bleeding diathesis, melena, hematochezia, hematuria, hematemesis, or abdominal pain. Patient is a known alcoholic and continues to drink per daughter. No history could be obtained from the pt due to her mechanical ventilation. No previous hx of DVT/PE per mother and daughter. Patient was extubated after prolonged weaning Patient waiting for placement Objective - Constitutional Vitals: Vital Signs - 12hr 04/18/20 04/18/20 04/18/20 08:13 10:00 15:53 Temperature 98.0 F 98.0 F Pulse Rate 75 106 H Respiratory 18 20 18 Rate Blood Pressure 144/98 146/86 [Left] O2 Sat by Pulse 100 95 Oximetry General appearance: Present: no acute distress, well-nourished - EENT Eyes: PERRL, EOM intact ENT: hearing intact, clear oral mucosa Ears: bilateral: normal - Neck Neck: supple, normal ROM - Respiratory Respiratory effort: normal Respiratory: bilateral: CTA - Breasts Breasts: normal - Cardiovascular Rhythm: regular Heart Sounds: Present: S1 & S2. Absent: gallop, rub Extremities: pulses intact, No edema, normal color, Full ROM - Gastrointestinal General gastrointestinal: Present: soft, non-tender, non-distended, normal bowel sounds - Genitourinary Female genitourinary: normal - Integumentary Integumentary: clear, warm, dry - Musculoskeletal Musculoskeletal: 1, strength equal bilaterally - Neurologic Neurologic: moves all extremities - Psychiatric Psychiatric: memory intact, appropriate mood/affect, intact judgment & insight - Labs CBC & Chem 7: 04/16/20 09:02 04/16/20 05:00 HEART Score - HEART Score Troponin: Troponin T < 0.010 ng/mL (0.00-0.029) 11/22/19 23:27
--- NOTE | 2020-04-18 18:12 | Progress Note ---
Assessment and Plan Cardiopulmonary arrest outside the hospital; Status post CPR' Anoxic brain injury: suspected CT head: No acute abnormality. EEG ordered showed Generalized slowing. No seizures or epileptiform activity. -Patient now alert and awake responding appropriately -As needed haldol for agitation Acute metabolic encephalopathy/toxic encephalopathy due to the above - cont supportive care Acute Respiratory failure status post trach and PEG 12/13/2019 Tracheostomy site healed, site ulceration; resolved Anemia, microcytic - Status post 3 units PRBC transfusion, H&H low stable Hyperammonemia - likely from liver disease related to EtOH abuse - Patient had elevated ammonia level and treated with lactulose Metabolic Acidosis -Alcohol ketoacidosis vs hypoprofusion -Continue to monitor ELevated LFTs, stable now - due to ischemic hepatitis. Leucocytosis with sepsis - Source MRSA bacteremia and MSSA pneumonia. UA showed pyuria. RUQ US showed no ascites. - Repeat TTE negative for vegetation. Completed 7 days of Ceftriaxone on 020. -Treated with Abx vancomycin 1 gm IV q 12 hour total 2 week till 12/30/2019 Severe protein calorie malnutrition Dietitian following MSSA pneumonia: Status post vancomycin till 12/30/2019 Alcohol use Disorder - given ongoing Alcohol use almost daily, s/p IV Thiamine - monitor Severe hypokalemia -Repleted Seizure disorder: treated with Keppra H. Influenzae, tracheobronchitis, treated with abx Moderate to severe fecal impaction - will add stool softner DNR CODE STATUS Awaiting placement 03/25/2020. Patient is s/p cardiac arrest, extubated and decannulated with stoma healing. Await placement per case management. 03/26/2020. Awaiting placement. 03/27/2020. Continue to work with case management for placement. Patient requiring restraints for safety. 04/06/20; patient remains in restraints secondary to agitation confusion and risk of fall, awaiting placement 04/07/20; patient clinically stable, awaiting placement 04/09/20; patient remains confused, agitated requiring restraints for safety, awaiting placement 04/10/20 patient remains confused which is his baseline waiting for placement- 04/11/2020 patient waiting for placement- 04/12/2020 Waiting for placement 726 through [id number] waiting for placement Subjective Date of service: 04/18/20 Principal diagnosis: Ac cardiopulmonary arrest; Ac hypoxemic resp failure; Acute encephalopathy Interval history: 54-year-old female with a past medical history of Hypertension, Depression, Tobacco use Disorder, Alcohol use Disorder as confirmed by Daughter and pt's mother presents to the hospital status post cardiac arrest. Patient is from home and family called EMS at 22: 27 for the pt who had told family members that she was not feeling good and c/o her chronic hip pain. She urinated and then was speaking, then she " froze and was rigid " per daughter and she became unresponsive and stopped breathing. Immediately, family began CPR. EMS found pt in PEA. Upon their arrival patient in SinuS Tachycardia.. They were unable to intubate patient with a ET tube because she was clenching down therefore Joe airway placed. Patient received Narcan and Epinephrine. Patient's rhythm changed to PEA to sinus bradycardia, to PEA, then to sinus tach after receiving Narcan and Epinephrine. Per the ED physician who evaluated pt, Patient presented with a pulse, intermittent respirations, and bagging support via Joe airway with O2 sat of 100%. Accu-Chek of 71 obtained by EMS Spoke to patient's family (daughter and mother). MOther is Anh Jesus- [phone] and she would like to be called about pt's progress or notified about the pt.. No seizure activity was noted. They deny that patient had any preceding infection symptoms, cough, fever, complaints of chest pain, shortness of breath, or any bleeding diathesis, melena, hematochezia, hematuria, hematemesis, or abdominal pain. Patient is a known alcoholic and continues to drink per daughter. No history could be obtained from the pt due to her mechanical ventilation. No previous hx of DVT/PE per mother and daughter. Patient was extubated after prolonged weaning Patient waiting for placement Objective - Constitutional Vitals: Vital Signs - 12hr 04/18/20 04/18/20 04/18/20 08:13 10:00 15:53 Temperature 98.0 F 98.0 F Pulse Rate 75 106 H Respiratory 18 20 18 Rate Blood Pressure 144/98 146/86 [Left] O2 Sat by Pulse 100 95 Oximetry General appearance: Present: no acute distress, well-nourished - EENT Eyes: PERRL, EOM intact ENT: hearing intact, clear oral mucosa Ears: bilateral: normal - Neck Neck: supple, normal ROM - Respiratory Respiratory effort: normal Respiratory: bilateral: CTA - Breasts Breasts: normal - Cardiovascular Heart rate: 78 Rhythm: regular Heart Sounds: Present: S1 & S2. Absent: gallop, rub Extremities: pulses intact, No edema, normal color, Full ROM - Gastrointestinal General gastrointestinal: Present: soft, non-tender, non-distended, normal bowel sounds - Genitourinary Female genitourinary: normal - Integumentary Integumentary: clear, warm, dry - Musculoskeletal Musculoskeletal: 1, strength equal bilaterally - Neurologic Neurologic: moves all extremities - Psychiatric Psychiatric: memory intact, appropriate mood/affect, intact judgment & insight - Labs CBC & Chem 7: 04/16/20 09:02 04/16/20 05:00 HEART Score - HEART Score Troponin: Troponin T < 0.010 ng/mL (0.00-0.029) 11/22/19 23:27
[2020-04-18] MEDS: ENOXAPARIN 40 MG/0.4 ML INJ SUB-Q SCH (22:02)
[2020-04-19] MEDS: SERTRALINE 50 MG TAB PO SCH (09:22)
[2020-04-19] MEDS: QUEtiapine 100 MG TAB FEEDTUBE SCH ×2 (09:22→21:06)
[2020-04-19] MEDS: NICOTINE 21 MG/24 HR PATCH TD SCH (09:22)
[2020-04-19] MEDS: LANSOPRAZOLE 30 MG SOLUTAB FEEDTUBE SCH (09:22)
[2020-04-19] MEDS: levETIRAcetam 500 MG/5 ML ORAL LIQD PO SCH ×2 (09:22→21:06)
[2020-04-19] MEDS: GLYCOPYRROLATE 1 MG TAB PO SCH ×3 (09:23→21:06)
[2020-04-19] MEDS: hydrOXYzine PAMOATE 25 MG CAP PO SCH ×2 (09:23→21:06)
[2020-04-19] MEDS: MIRTAZAPINE 30 MG TAB PO SCH (09:23)
--- NOTE | 2020-04-19 16:32 | Progress Note ---
Assessment and Plan Cardiopulmonary arrest outside the hospital; Status post CPR' Anoxic brain injury: suspected CT head: No acute abnormality. EEG ordered showed Generalized slowing. No seizures or epileptiform activity. -Patient now alert and awake responding appropriately -As needed haldol for agitation Acute metabolic encephalopathy/toxic encephalopathy due to the above - cont supportive care Acute Respiratory failure status post trach and PEG 12/13/2019 Tracheostomy site healed, site ulceration; resolved Anemia, microcytic - Status post 3 units PRBC transfusion, H&H low stable Hyperammonemia - likely from liver disease related to EtOH abuse - Patient had elevated ammonia level and treated with lactulose Metabolic Acidosis -Alcohol ketoacidosis vs hypoprofusion -Continue to monitor ELevated LFTs, stable now - due to ischemic hepatitis. Leucocytosis with sepsis - Source MRSA bacteremia and MSSA pneumonia. UA showed pyuria. RUQ US showed no ascites. - Repeat TTE negative for vegetation. Completed 7 days of Ceftriaxone on 020. -Treated with Abx vancomycin 1 gm IV q 12 hour total 2 week till 12/30/2019 Severe protein calorie malnutrition Dietitian following MSSA pneumonia: Status post vancomycin till 12/30/2019 Alcohol use Disorder - given ongoing Alcohol use almost daily, s/p IV Thiamine - monitor Severe hypokalemia -Repleted Seizure disorder: treated with Keppra H. Influenzae, tracheobronchitis, treated with abx Moderate to severe fecal impaction - will add stool softner DNR CODE STATUS Awaiting placement 03/25/2020. Patient is s/p cardiac arrest, extubated and decannulated with stoma healing. Await placement per case management. 03/26/2020. Awaiting placement. 03/27/2020. Continue to work with case management for placement. Patient requiring restraints for safety. 04/06/20; patient remains in restraints secondary to agitation confusion and risk of fall, awaiting placement 04/07/20; patient clinically stable, awaiting placement 04/09/20; patient remains confused, agitated requiring restraints for safety, awaiting placement 04/10/20 patient remains confused which is his baseline waiting for placement- 04/11/2020 patient waiting for placement- 04/12/2020 through 04/20/2020 Waiting for placement Subjective Date of service: 04/19/20 Principal diagnosis: Ac cardiopulmonary arrest; Ac hypoxemic resp failure; Acute encephalopathy Interval history: 54-year-old female with a past medical history of Hypertension, Depression, Tobacco use Disorder, Alcohol use Disorder as confirmed by Daughter and pt's mother presents to the hospital status post cardiac arrest. Patient is from home and family called EMS at 22: 27 for the pt who had told family members that she was not feeling good and c/o her chronic hip pain. She urinated and then was speaking, then she " froze and was rigid " per daughter and she became unresponsive and stopped breathing. Immediately, family began CPR. EMS found pt in PEA. Upon their arrival patient in SinuS Tachycardia.. They were unable to intubate patient with a ET tube because she was clenching down therefore Joe airway placed. Patient received Narcan and Epinephrine. Patient's rhythm changed to PEA to sinus bradycardia, to PEA, then to sinus tach after receiving Narcan and Epinephrine. Per the ED physician who evaluated pt, Patient presente d with a pulse, intermittent respirations, and bagging support via Joe airway with O2 sat of 100%. Accu-Chek of 71 obtained by EMS Spoke to patient's family (daughter and mother). MOther is Anh Jesus- [phone] and she would like to be called about pt's progress or notified about the pt.. No seizure activity was noted. They deny that patient had any preceding infection symptoms, cough, fever, complaints of chest pain, shortness of breath, or any bleeding diathesis, melena, hematochezia, hematuria, hematemesis, or abdominal pain. Patient is a known alcoholic and continues to drink per daughter. No history could be obtained from the pt due to her mechanical ventilation. No previous hx of DVT/PE per mother and daughter. Patient was extubated after prolonged weaning Patient waiting for placement Objective - Constitutional Vitals: Vital Signs - 12hr 04/19/20 04/19/20 04/19/20 04:34 07:48 11:57 Temperature 97.8 F 98.9 F 98.7 F Pulse Rate 75 82 80 Respiratory 20 20 20 Rate Blood Pressure 149/91 137/73 172/100 O2 Sat by Pulse 100 100 98 Oximetry General appearance: Present: no acute distress, well-nourished - EENT Eyes: PERRL, EOM intact ENT: hearing intact, clear oral mucosa Ears: bilateral: normal - Neck Neck: supple, normal ROM - Respiratory Respiratory effort: normal Respiratory: bilateral: CTA - Breasts Breasts: normal - Cardiovascular Heart rate: 78 Rhythm: regular Heart Sounds: Present: S1 & S2. Absent: gallop, rub Extremities: pulses intact, No edema, normal color, Full ROM - Gastrointestinal General gastrointestinal: Present: soft, non-tender, non-distended, normal bowel sounds - Genitourinary Female genitourinary: normal - Integumentary Integumentary: clear, warm, dry - Musculoskeletal Musculoskeletal: 1, strength equal bilaterally - Neurologic Neurologic: moves all extremities - Psychiatric Psychiatric: memory intact, appropriate mood/affect, intact judgment & insight - Labs CBC & Chem 7: 04/16/20 09:02 04/16/20 05:00 HEART Score - HEART Score Troponin: Troponin T < 0.010 ng/mL (0.00-0.029) 11/22/19 23:27
[2020-04-19] MEDS: ENOXAPARIN 40 MG/0.4 ML INJ SUB-Q SCH (21:06)
[2020-04-20] MEDS: GLYCOPYRROLATE 1 MG TAB PO SCH ×3 (08:00→22:09)
[2020-04-20] MEDS: SERTRALINE 50 MG TAB PO SCH (09:27)
[2020-04-20] MEDS: MIRTAZAPINE 30 MG TAB PO SCH (09:27)
[2020-04-20] MEDS: QUEtiapine 100 MG TAB FEEDTUBE SCH ×2 (09:27→22:09)
[2020-04-20] MEDS: levETIRAcetam 500 MG/5 ML ORAL LIQD PO SCH ×2 (09:27→22:09)
[2020-04-20] MEDS: NICOTINE 21 MG/24 HR PATCH TD SCH (09:27)
[2020-04-20] MEDS: LANSOPRAZOLE 30 MG SOLUTAB FEEDTUBE SCH (09:28)
[2020-04-20] MEDS: hydrOXYzine PAMOATE 25 MG CAP PO SCH ×2 (09:28→22:09)
[2020-04-20] MEDS: SCOPOLAMINE TRANSDERMAL PATCH 72 HR TD SCH (09:29)
--- NOTE | 2020-04-20 11:19 | Progress Note ---
Assessment and Plan Acute cardiopulmonary arrest with ROSC Acute hypoxemic respiratory failure s/p MVS s/p Tracheostomy- decannulated Oropharyngeal dysphagia s/p PEG MRSA Bacteremia- treated MRSA pneumonia-treated Acute [id number] encephalopathy Metabolic acidosis/alcoholic acidosis/Lactic acidosis( resolved) Ischemic hepatitis Erythrocytosis Tobacco use disorder Alcohol use Disorder PT/OT, increase activity Aspiration precautions Continue all supportive care Bowel regimen Fall precautions Discharge planning- awaiting placement -CBC, BMP prn -CXR, ABG prn -Continue contact isolation for MRSA -Supportive transfusions as indicated for HgB <7g/dL -Continue aspiration precautions, HOB>40 -Continue enteric nutritional support at goal rate. -Continue to monitor glycemic control, with target blood glucose 140-180 mg/dL -Avoid hypoglycemia - Continue to wean supplemental oxygen for target O2 sats > 90% -Continue to avoid nephrotoxins, adjust all medications for GFR and CrCL - Continue bronchodilators with pulmonary hygiene - Continue to maintain of sleep-wake cycle, avoid delirium - Continue mobility protocol and skin assessment per protocol for pressure ulcer prevention - Continue to monitor for clinical seizures - continue other care per attending / other consultants CONDITION: FAIR PROGNOSIS: FAIR CODE STATUS: DNAR Subjective Date of service: 04/20/20 Principal diagnosis: Ac cardiopulmonary arrest; Ac hypoxemic resp failure; Acute encephalopathy Interval history: Patient is seen today for: Acute cardiopulmonary arrest with ROSC; Acute hypoxe pat respiratory failure; Acute metabolic-toxic encephalopathy; Ischemic hepatitis; Leucocytosis with lactic acidosis; Tobacco use disorder; Alcohol use Disorder; s/p tracheostomy; s/p PEG Seen and examined at bedside; 24hour events reviewed; nursing and respiratory care staff consulted; no adverse overnight events reported to me; sitting up in achair, feeding herself. . Awaiting placement, no new issues, on going tangential speech Objective Vital Signs - 12hr 04/20/20 04/20/20 04/20/20 00:17 04:43 07:40 Temperature 97.8 F 98.1 F 98.9 F Pulse Rate 80 74 79 Respiratory 20 18 20 Rate Blood Pressure 106/73 146/94 128/79 O2 Sat by Pulse 100 100 97 Oximetry Constitutional: no acute distress, alert Eyes: non-icteric ENT: oropharynx moist Neck: supple, no lymphadenopathy, no JVD Effort: normal Ascultation: Bilateral: diminished breath sounds, rhonchi Percussion: Bilateral: not dull Cardiovascular: regular rate and rhythm (tachycardia), other (S1,S2) Gastrointestinal: normoactive bowel sounds, soft, non-tender, non-distended Integumentary: normal Extremities: no cyanosis, no edema, pulses normal, no ischemia or petechiae Neurologic: normal mental status, non-focal exam (moves all extremities), pupils equal and round, motor strength normal and Psychiatric: mood appropriate, affect normal CBC and BMP: 04/16/20 09:02 04/16/20 05:00 ABG, PT/INR, D-dimer: ABG ABG pH 7.433 pH Units (7.350-7.450) 03/08/20 13:25 ABG pCO2 40.2 mm Hg 03/08/20 13:25 ABG pO2 71.1 mm Hg (80.0-90.0) L 03/08/20 13:25 ABG O2 Saturation 97.0 % (95.0-99.0) 03/08/20 13:25 PT/INR, D-dimer PT 17.0 Sec. (12.2-14.9) H 11/23/19 03:47 INR 1.36 (0.87-1.13) H 11/23/19 03:47 Abnormal lab findings: Abnormal Labs 11/22/19 11/22/19 11/22/19 23:17 23:18 23:27 WBC 21.2 H RBC 3.59 L Hgb 9.8 L Hct MCH 27 L RDW 18.6 H Plt Count 454 H Lymph % (Auto) [place] % (Auto) [place] # Baso # Seg Neutrophils % Seg Neuts % (Manual) 86.0 H Lymphocytes % (Manual) 9.0 L Monocytes % (Manual) Seg Neutrophils # Seg Neutrophils # Man 18.2 H Lymphocytes # (Manual) Monocytes # (Manual) 1.1 H Eosinophils # (Manual) Basophils # (Manual) PT INR APTT ABG pH ABG pO2 ABG HCO3 ABG O2 Saturation ABG Base Excess ABG Hemoglobin Oxyhemoglobin Sodium Potassium Chloride Carbon Dioxide BUN Creatinine Glucose POC Glucose 53 L Lactic Acid Calcium Ionized Calcium Phosphorus Magnesium Total Bilirubin AST ALT Alkaline Phosphatase Ammonia Total Creatine Kinase CK-MB (CK-2) CK-MB (CK-2) Rel Index Total Protein Albumin Urine WBC (Auto) 40.0 H Vancomycin Trough Salicylates Acetaminophen Plasma/Serum Alcohol Crossmatch 11/22/19 11/22/19 11/22/19 23:27 23:27 23:27 WBC RBC Hgb Hct MCH RDW Plt Count Lymph % (Auto) [place] % (Auto) [place] # Baso # Seg Neutrophils % Seg Neuts % (Manual) Lymphocytes % (Manual) Monocytes % (Manual) Seg Neutrophils # Seg Neutrophils # Man Lymphocytes # (Manual) Monocytes # (Manual) Eosinophils # (Manual) Basophils # (Manual) PT INR APTT ABG pH ABG pO2 ABG HCO3 ABG O2 Saturation ABG Base Excess ABG Hemoglobin Oxyhemoglobin Sodium Potassium 2.4 L* Chloride 85.1 L Carbon Dioxide 19 L BUN Creatinine 0.5 L Glucose 261 H POC Glucose Lactic Acid Calcium Ionized Calcium Phosphorus Magnesium Total Bilirubin AST 609 H ALT 152 H Alkaline Phosphatase 160 H Ammonia 117.0 H Total Creatine Kinase 139 H CK-MB (CK-2) 8.3 H CK-MB (CK-2) Rel Index 5.9 H Total Protein Albumin 3.6 L Urine WBC (Auto) Vancomycin Trough Salicylates < 0.3 L Acetaminophen Plasma/Serum Alcohol Crossmatch 11/22/19 11/22/19 11/23/19 23:27 23:27 01:10 WBC RBC Hgb Hct MCH RDW Plt Count Lymph % (Auto) [place] % (Auto) [place] # Baso # Seg Neutrophils % Seg Neuts % (Manual) Lymphocytes % (Manual) Monocytes % (Manual) Seg Neutrophils # Seg Neutrophils # Man Lymphocytes # (Manual) Monocytes # (Manual) Eosinophils # (Manual) Basophils # (Manual) PT INR APTT ABG pH 7.273 L ABG pO2 209.7 H ABG HCO3 ABG O2 Saturation 99.2 H ABG Base Excess -3.9 L ABG Hemoglobin 10.6 L Oxyhemoglobin 93.9 L Sodium Potassium Chloride Carbon Dioxide BUN Creatinine Glucose POC Glucose Lactic Acid Calcium Ionized Calcium Phosphorus Magnesium Total Bilirubin AST ALT Alkaline Phosphatase Ammonia Total Creatine Kinase CK-MB (CK-2) CK-MB (CK-2) Rel Index Total Protein Albumin Urine WBC (Auto) Vancomycin Trough Salicylates Acetaminophen < 5.0 L Plasma/Serum Alcohol 0.08 H Crossmatch 11/23/19 11/23/19 11/23/19 01:19 01:19 03:47 WBC RBC Hgb Hct MCH RDW Plt Count Lymph % (Auto) [place] % (Auto) [place] # Baso # Seg Neutrophils % Seg Neuts % (Manual) Lymphocytes % (Manual) Monocytes % (Manual) Seg Neutrophils # Seg Neutrophils # Man Lymphocytes # (Manual) Monocytes # (Manual) Eosinophils # (Manual) Basophils # (Manual) PT 16.3 H INR 1.29 H APTT ABG pH ABG pO2 ABG HCO3 ABG O2 Saturation ABG Base Excess ABG Hemoglobin Oxyhemoglobin Sodium Potassium Chloride Carbon Dioxide BUN Creatinine Glucose POC Glucose Lactic Acid 2.10 H* 5.00 H* Calcium Ionized Calcium Phosphorus Magnesium Total Bilirubin AST ALT Alkaline Phosphatase Ammonia Total Creatine Kinase CK-MB (CK-2) CK-MB (CK-2) Rel Index Total Protein Albumin Urine WBC (Auto) Vancomycin Trough Salicylates Acetaminophen Plasma/Serum Alcohol Crossmatch 11/23/19 11/23/19 11/23/19 03:47 03:47 04:53 WBC RBC Hgb 9.4 L Hct MCH RDW Plt Count Lymph % (Auto) [place] % (Auto) [place] # Baso # Seg Neutrophils % Seg Neuts % (Manual) Lymphocytes % (Manual) Monocytes % (Manual) Seg Neutrophils # Seg Neutrophils # Man Lymphocytes # (Manual) Monocytes # (Manual) Eosinophils # (Manual) Basophils # (Manual) PT 17.0 H INR 1.36 H APTT 128.2 H* ABG pH ABG pO2 ABG HCO3 ABG O2 Saturation ABG Base Excess ABG Hemoglobin Oxyhemoglobin Sodium Potassium Chloride Carbon Dioxide 18 L BUN Creatinine 0.5 L Glucose 105 H POC Glucose Lactic Acid Calcium 8.3 L Ionized Calcium Phosphorus 2.40 L Magnesium Total Bilirubin 1.30 H AST 761 H ALT 158 H Alkaline Phosphatase 143 H Ammonia Total Creatine Kinase CK-MB (CK-2) CK-MB (CK-2) Rel Index Total Protein Albumin 2.8 L Urine WBC (Auto) Vancomycin Trough Salicylates Acetaminophen Plasma/Serum Alcohol Crossmatch 11/23/19 11/23/19 11/23/19 05:12 06:32 06:32 WBC 16.8 H RBC 3.31 L Hgb 8.9 L Hct 28.7 L MCH 27 L RDW 18.6 H Plt Count Lymph % (Auto) [place] % (Auto) [place] # Baso # Seg Neutrophils % Seg Neuts % (Manual) 94.0 H Lymphocytes % (Manual) 1.0 L Monocytes % (Manual) Seg Neutrophils # Seg Neutrophils # Man 15.8 H Lymphocytes # (Manual) 0.2 L Monocytes # (Manual) Eosinophils # (Manual) Basophils # (Manual) PT INR APTT ABG pH ABG pO2 ABG HCO3 ABG O2 Saturation ABG Base Excess -3.2 L ABG Hemoglobin 9.0 L Oxyhemoglobin 93.6 L Sodium Potassium Chloride Carbon Dioxide BUN Creatinine Glucose POC Glucose Lactic Acid Calcium Ionized Calcium 4.5 L Phosphorus Magnesium Total Bilirubin AST ALT Alkaline Phosphatase Ammonia Total Creatine Kinase CK-MB (CK-2) CK-MB (CK-2) Rel Index Total Protein Albumin Urine WBC (Auto) Vancomycin Trough Salicylates Acetaminophen Plasma/Serum Alcohol Crossmatch 11/23/19 11/24/19 11/24/19 06:32 04:35 04:35 WBC RBC Hgb Hct MCH RDW Plt Count Lymph % (Auto) [place] % (Auto) [place] # Baso # Seg Neutrophils % Seg Neuts % (Manual) Lymphocytes % (Manual) Monocytes % (Manual) Seg Neutrophils # Seg Neutrophils # Man Lymphocytes # (Manual) Monocytes # (Manual) Eosinophils # (Manual) Basophils # (Manual) PT INR APTT ABG pH ABG pO2 ABG HCO3 ABG O2 Saturation ABG Base Excess ABG Hemoglobin Oxyhemoglobin Sodium Potassium Chloride Carbon Dioxide BUN Creatinine Glucose POC Glucose Lactic Acid 3.30 H* Calcium Ionized Calcium Phosphorus Magnesium 1.40 L Total Bilirubin AST ALT Alkaline Phosphatase Ammonia 98.0 H Total Creatine Kinase CK-MB (CK-2) CK-MB (CK-2) Rel Index Total Protein Albumin Urine WBC (Auto) Vancomycin Trough Salicylates Acetaminophen Plasma/Serum Alcohol Crossmatch 11/24/19 11/25/19 11/25/19 05:22 04:34 05:05 WBC 17.3 H RBC 2.88 L Hgb 7.8 L Hct 24.6 L MCH 27 L RDW 18.5 H Plt Count Lymph % (Auto) 7.7 L [place] % (Auto) 9.7 H [place] # 1.7 H Baso # Seg Neutrophils % 82.2 H Seg Neuts % (Manual) Lymphocytes % (Manual) Monocytes % (Manual) Seg Neutrophils # 14.2 H Seg Neutrophils # Man Lymphocytes # (Manual) Monocytes # (Manual) Eosinophils # (Manual) Basophils # (Manual) PT INR APTT ABG pH 7.475 H ABG pO2 ABG HCO3 29.4 H 32.3 H ABG O2 Saturation ABG Base Excess 5.4 H 6.9 H ABG Hemoglobin 9.0 L 10.6 L Oxyhemoglobin 94.3 L Sodium Potassium Chloride Carbon Dioxide BUN Creatinine Glucose POC Glucose Lactic Acid Calcium Ionized Calcium Phosphorus Magnesium Total Bilirubin AST ALT Alkaline Phosphatase Ammonia Total Creatine Kinase CK-MB (CK-2) CK-MB (CK-2) Rel Index Total Protein Albumin Urine WBC (Auto) Vancomycin Trough Salicylates Acetaminophen Plasma/Serum Alcohol Crossmatch 11/25/19 11/25/19 11/26/19 05:05 22:46 03:31 WBC RBC Hgb Hct MCH RDW Plt Count Lymph % (Auto) [place] % (Auto) [place] # Baso # Seg Neutrophils % Seg Neuts % (Manual) Lymphocytes % (Manual) Monocytes % (Manual) Seg Neutrophils # Seg Neutrophils # Man Lymphocytes # (Manual) Monocytes # (Manual) Eosinophils # (Manual) Basophils # (Manual) PT INR APTT ABG pH 7.459 H ABG pO2 ABG HCO3 34.2 H ABG O2 Saturation ABG Base Excess 9.4 H ABG Hemoglobin 7.6 L Oxyhemoglobin 94.8 L Sodium 152 H D 147 H Potassium 2.3 L* D 2.8 L* D Chloride 107.8 H Carbon Dioxide 31 H D 33 H BUN Creatinine 0.6 L 0.6 L Glucose 148 H 177 H POC Glucose Lactic Acid Calcium Ionized Calcium Phosphorus Magnesium Total Bilirubin AST 105 H ALT 71 H Alkaline Phosphatase 155 H Ammonia Total Creatine Kinase CK-MB (CK-2) CK-MB (CK-2) Rel Index Total Protein 5.2 L D Albumin 2.9 L Urine WBC (Auto) Vancomycin Trough Salicylates Acetaminophen Plasma/Serum Alcohol Crossmatch 11/26/19 11/26/19 11/27/19 08:24 08:24 04:20 WBC 12.0 H RBC 3.00 L Hgb 8.0 L 9.3 L Hct 25.9 L 29.7 L MCH 27 L RDW 18.5 H Plt Count Lymph % (Auto) [place] % (Auto) [place] # Baso # Seg Neutrophils % Seg Neuts % (Manual) 89.0 H Lymphocytes % (Manual) 4.0 L Monocytes % (Manual) Seg Neutrophils # Seg Neutrophils # Man 10.7 H Lymphocytes # (Manual) 0.5 L Monocytes # (Manual) Eosinophils # (Manual) Basophils # (Manual) PT INR APTT ABG pH ABG pO2 ABG HCO3 ABG O2 Saturation ABG Base Excess ABG Hemoglobin Oxyhemoglobin Sodium 146 H Potassium 3.4 L D Chloride Carbon Dioxide BUN Creatinine 0.5 L Glucose 165 H POC Glucose Lactic Acid Calcium Ionized Calcium Phosphorus Magnesium Total Bilirubin AST 57 H ALT Alkaline Phosphatase 166 H Ammonia Total Creatine Kinase CK-MB (CK-2) CK-MB (CK-2) Rel Index Total Protein Albumin 2.9 L Urine WBC (Auto) Vancomycin Trough Salicylates Acetaminophen Plasma/Serum Alcohol Crossmatch 11/27/19 11/27/19 11/27/19 04:28 04:28 04:42 WBC RBC Hgb Hct MCH RDW Plt Count Lymph % (Auto) [place] % (Auto) [place] # Baso # Seg Neutrophils % Seg Neuts % (Manual) Lymphocytes % (Manual) Monocytes % (Manual) Seg Neutrophils # Seg Neutrophils # Man Lymphocytes # (Manual) Monocytes # (Manual) Eosinophils # (Manual) Basophils # (Manual) PT INR APTT ABG pH 7.470 H ABG pO2 74.0 L ABG HCO3 33.8 H ABG O2 Saturation ABG Base Excess 9.1 H ABG Hemoglobin 8.7 L Oxyhemoglobin 94.7 L Sodium 146 H Potassium 2.9 L* Chloride Carbon Dioxide BUN 25 H Creatinine Glucose 213 H POC Glucose Lactic Acid Calcium Ionized Calcium Phosphorus 1.00 L Magnesium Total Bilirubin AST ALT Alkaline Phosphatase Ammonia Total Creatine Kinase CK-MB (CK-2) CK-MB (CK-2) Rel Index Total Protein Albumin Urine WBC (Auto) Vancomycin Trough Salicylates Acetaminophen Plasma/Serum Alcohol Crossmatch 11/27/19 11/27/19 11/27/19 05:37 12:20 15:46 WBC RBC Hgb Hct MCH RDW Plt Count Lymph % (Auto) [place] % (Auto) [place] # Baso # Seg Neutrophils % Seg Neuts % (Manual) Lymphocytes % (Manual) Monocytes % (Manual) Seg Neutrophils # Seg Neutrophils # Man Lymphocytes # (Manual) Monocytes # (Manual) Eosinophils # (Manual) Basophils # (Manual) PT INR APTT ABG pH ABG pO2 ABG HCO3 ABG O2 Saturation ABG Base Excess ABG Hemoglobin Oxyhemoglobin Sodium 146 H Potassium 3.5 L D Chloride Carbon Dioxide BUN 24 H Creatinine 0.6 L Glucose 187 H POC Glucose 117 H 220 H Lactic Acid Calcium Ionized Calcium Phosphorus Magnesium Total Bilirubin AST ALT Alkaline Phosphatase Ammonia Total Creatine Kinase CK-MB (CK-2) CK-MB (CK-2) Rel Index Total Protein Albumin Urine WBC (Auto) Vancomycin Trough Salicylates Acetaminophen Plasma/Serum Alcohol Crossmatch 11/27/19 11/28/19 11/28/19 17:28 05:00 05:02 WBC RBC Hgb Hct MCH RDW Plt Count Lymph % (Auto) [place] % (Auto) [place] # Baso # Seg Neutrophils % Seg Neuts % (Manual) Lymphocytes % (Manual) Monocytes % (Manual) Seg Neutrophils # Seg Neutrophils # Man Lymphocytes # (Manual) Monocytes # (Manual) Eosinophils # (Manual) Basophils # (Manual) PT INR APTT ABG pH ABG pO2 72.4 L ABG HCO3 33.6 H ABG O2 Saturation 94.1 L ABG Base Excess 7.3 H ABG Hemoglobin Oxyhemoglobin 91.8 L Sodium 146 H Potassium 3.3 L Chloride Carbon Dioxide BUN 25 H Creatinine 0.6 L Glucose 176 H POC Glucose 198 H Lactic Acid Calcium Ionized Calcium Phosphorus Magnesium Total Bilirubin AST ALT Alkaline Phosphatase Ammonia Total Creatine Kinase CK-MB (CK-2) CK-MB (CK-2) Rel Index Total Protein Albumin Urine WBC (Auto) Vancomycin Trough Salicylates Acetaminophen Plasma/Serum Alcohol Crossmatch 11/28/19 11/28/19 11/29/19 05:02 18:55 10:43 WBC 15.2 H 19.0 H RBC 3.06 L 3.01 L Hgb 8.3 L 8.3 L Hct 27.0 L 26.4 L MCH 27 L RDW 19.0 H 19.7 H Plt Count 479 H 611 H Lymph % (Auto) [place] % (Auto) [place] # Baso # Seg Neutrophils % Seg Neuts % (Manual) 92.0 H Lymphocytes % (Manual) 2.0 L Monocytes % (Manual) Seg Neutrophils # Seg Neutrophils # Man 14.0 H Lymphocytes # (Manual) 0.3 L Monocytes # (Manual) Eosinophils # (Manual) Basophils # (Manual) PT INR APTT ABG pH ABG pO2 ABG HCO3 ABG O2 Saturation ABG Base Excess ABG Hemoglobin Oxyhemoglobin Sodium Potassium Chloride Carbon Dioxide BUN Creatinine Glucose POC Glucose 138 H Lactic Acid Calcium Ionized Calcium Phosphorus Magnesium Total Bilirubin AST ALT Alkaline Phosphatase Ammonia Total Creatine Kinase CK-MB (CK-2) CK-MB (CK-2) Rel Index Total Protein Albumin Urine WBC (Auto) Vancomycin Trough Salicylates Acetaminophen Plasma/Serum Alcohol Crossmatch 11/29/19 11/29/19 11/29/19 10:43 12:27 19:25 WBC RBC Hgb Hct MCH RDW Plt Count Lymph % (Auto) [place] % (Auto) [place] # Baso # Seg Neutrophils % Seg Neuts % (Manual) Lymphocytes % (Manual) Monocytes % (Manual) Seg Neutrophils # Seg Neutrophils # Man Lymphocytes # (Manual) Monocytes # (Manual) Eosinophils # (Manual) Basophils # (Manual) PT INR APTT ABG pH ABG pO2 ABG HCO3 ABG O2 Saturation ABG Base Excess ABG Hemoglobin Oxyhemoglobin Sodium Potassium 2.8 L* Chloride Carbon Dioxide BUN 20 H Creatinine 0.5 L Glucose 121 H POC Glucose 128 H 120 H Lactic Acid Calcium Ionized Calcium Phosphorus Magnesium Total Bilirubin AST ALT Alkaline Phosphatase Ammonia Total Creatine Kinase CK-MB (CK-2) CK-MB (CK-2) Rel Index Total Protein Albumin Urine WBC (Auto) Vancomycin Trough Salicylates Acetaminophen Plasma/Serum Alcohol Crossmatch 11/29/19 11/30/19 11/30/19 23:46 04:10 05:02 WBC RBC Hgb Hct MCH RDW Plt Count Lymph % (Auto) [place] % (Auto) [place] # Baso # Seg Neutrophils % Seg Neuts % (Manual) Lymphocytes % (Manual) Monocytes % (Manual) Seg Neutrophils # Seg Neutrophils # Man Lymphocytes # (Manual) Monocytes # (Manual) Eosinophils # (Manual) Basophils # (Manual) PT INR APTT ABG pH ABG pO2 76.3 L ABG HCO3 32.5 H ABG O2 Saturation ABG Base Excess 6.9 H ABG Hemoglobin 8.0 L Oxyhemoglobin 92.6 L Sodium Potassium Chloride Carbon Dioxide BUN Creatinine Glucose POC Glucose 116 H 128 H Lactic Acid Calcium Ionized Calcium Phosphorus Magnesium Total Bilirubin AST ALT Alkaline Phosphatase Ammonia Total Creatine Kinase CK-MB (CK-2) CK-MB (CK-2) Rel Index Total Protein Albumin Urine WBC (Auto) Vancomycin Trough Salicylates Acetaminophen Plasma/Serum Alcohol Crossmatch 11/30/19 11/30/19 11/30/19 05:25 05:25 12:59 WBC 18.4 H RBC 3.10 L Hgb 8.5 L Hct 27.5 L MCH 27 L RDW 20.9 H Plt Count 691 H Lymph % (Auto) 7.1 L [place] % (Auto) 7.7 H [place] # 1.4 H Baso # Seg Neutrophils % 83.4 H Seg Neuts % (Manual) Lymphocytes % (Manual) Monocytes % (Manual) Seg Neutrophils # 15.4 H Seg Neutrophils # Man Lymphocytes # (Manual) Monocytes # (Manual) Eosinophils # (Manual) Basophils # (Manual) PT INR APTT ABG pH ABG pO2 ABG HCO3 ABG O2 Saturation ABG Base Excess ABG Hemoglobin Oxyhemoglobin Sodium 146 H Potassium Chloride 107.2 H Carbon Dioxide BUN Creatinine 0.5 L Glucose 132 H POC Glucose 124 H Lactic Acid Calcium Ionized Calcium Phosphorus Magnesium Total Bilirubin AST 246 H ALT 274 H Alkaline Phosphatase 203 H Ammonia Total Creatine Kinase CK-MB (CK-2) CK-MB (CK-2) Rel Index Total Protein 5.4 L Albumin 2.9 L Urine WBC (Auto) Vancomycin Trough Salicylates Acetaminophen Plasma/Serum Alcohol Crossmatch 11/30/19 12/01/19 12/01/19 17:53 00:05 05:10 WBC RBC Hgb Hct MCH RDW Plt Count Lymph % (Auto) [place] % (Auto) [place] # Baso # Seg Neutrophils % Seg Neuts % (Manual) Lymphocytes % (Manual) Monocytes % (Manual) Seg Neutrophils # Seg Neutrophils # Man Lymphocytes # (Manual) Monocytes # (Manual) Eosinophils # (Manual) Basophils # (Manual) PT INR APTT ABG pH ABG pO2 ABG HCO3 ABG O2 Saturation ABG Base Excess ABG Hemoglobin Oxyhemoglobin Sodium Potassium Chloride Carbon Dioxide BUN Creatinine Glucose POC Glucose 113 H 143 H 145 H Lactic Acid Calcium Ionized Calcium Phosphorus Magnesium Total Bilirubin AST ALT Alkaline Phosphatase Ammonia Total Creatine Kinase CK-MB (CK-2) CK-MB (CK-2) Rel Index Total Protein Albumin Urine WBC (Auto) Vancomycin Trough Salicylates Acetaminophen Plasma/Serum Alcohol Crossmatch 12/01/19 12/01/19 12/01/19 05:33 08:23 08:23 WBC 22.7 H RBC 2.88 L Hgb 7.9 L Hct 25.2 L MCH 27 L RDW 21.0 H Plt Count 732 H Lymph % (Auto) [place] % (Auto) [place] # Baso # Seg Neutrophils % Seg Neuts % (Manual) 91.0 H Lymphocytes % (Manual) 3.0 L Monocytes % (Manual) Seg Neutrophils # Seg Neutrophils # Man 20.7 H Lymphocytes # (Manual) 0.7 L Monocytes # (Manual) 1.1 H Eosinophils # (Manual) Basophils # (Manual) PT INR APTT ABG pH ABG pO2 68.6 L ABG HCO3 34.1 H ABG O2 Saturation ABG Base Excess 9.0 H ABG Hemoglobin 6.5 L Oxyhemoglobin 94.7 L Sodium Potassium Chloride Carbon Dioxide BUN Creatinine 0.5 L Glucose 125 H POC Glucose Lactic Acid Calcium Ionized Calcium Phosphorus Magnesium Total Bilirubin AST ALT Alkaline Phosphatase Ammonia Total Creatine Kinase CK-MB (CK-2) CK-MB (CK-2) Rel Index Total Protein Albumin Urine WBC (Auto) Vancomycin Trough Salicylates Acetaminophen Plasma/Serum Alcohol Crossmatch 12/01/19 12/01/19 12/01/19 13:21 17:54 20:59 WBC RBC Hgb Hct MCH RDW Plt Count Lymph % (Auto) [place] % (Auto) [place] # Baso # Seg Neutrophils % Seg Neuts % (Manual) Lymphocytes % (Manual) Monocytes % (Manual) Seg Neutrophils # Seg Neutrophils # Man Lymphocytes # (Manual) Monocytes # (Manual) Eosinophils # (Manual) Basophils # (Manual) PT INR APTT ABG pH ABG pO2 78.3 L ABG HCO3 33.8 H ABG O2 Saturation 94.9 L ABG Base Excess 7.9 H ABG Hemoglobin 11.5 L Oxyhemoglobin 92.3 L Sodium Potassium Chloride Carbon Dioxide BUN Creatinine Glucose POC Glucose 111 H 115 H Lactic Acid Calcium Ionized Calcium Phosphorus Magnesium Total Bilirubin AST ALT Alkaline Phosphatase Ammonia Total Creatine Kinase CK-MB (CK-2) CK-MB (CK-2) Rel Index Total Protein Albumin Urine WBC (Auto) Vancomycin Trough Salicylates Acetaminophen Plasma/Serum Alcohol Crossmatch 12/02/19 12/03/19 12/04/19 12:55 20:00 04:26 WBC 15.2 H RBC 2.69 L Hgb 7.4 L Hct 23.6 L MCH 27 L RDW 19.9 H Plt Count 838 H Lymph % (Auto) [place] % (Auto) [place] # Baso # Seg Neutrophils % Seg Neuts % (Manual) Lymphocytes % (Manual) Monocytes % (Manual) Seg Neutrophils # Seg Neutrophils # Man Lymphocytes # (Manual) Monocytes # (Manual) Eosinophils # (Manual) Basophils # (Manual) PT INR APTT ABG pH ABG pO2 68.3 L ABG HCO3 33.5 H ABG O2 Saturation 93.5 L ABG Base Excess 8.4 H ABG Hemoglobin 7.3 L Oxyhemoglobin 90.9 L Sodium Potassium Chloride Carbon Dioxide BUN Creatinine Glucose POC Glucose 107 H Lactic Acid Calcium Ionized Calcium Phosphorus Magnesium Total Bilirubin AST ALT Alkaline Phosphatase Ammonia Total Creatine Kinase CK-MB (CK-2) CK-MB (CK-2) Rel Index Total Protein Albumin Urine WBC (Auto) Vancomycin Trough Salicylates Acetaminophen Plasma/Serum Alcohol Crossmatch 12/04/19 12/04/19 12/04/19 04:26 07:45 12:02 WBC 15.9 H RBC 2.88 L Hgb 7.9 L Hct 25.1 L MCH RDW 20.4 H Plt Count 839 H Lymph % (Auto) 11.3 L [place] % (Auto) 15.2 H [place] # 2.4 H Baso # Seg Neutrophils % 72.4 H Seg Neuts % (Manual) Lymphocytes % (Manual) Monocytes % (Manual) Seg Neutrophils # 11.5 H Seg Neutrophils # Man Lymphocytes # (Manual) Monocytes # (Manual) Eosinophils # (Manual) Basophils # (Manual) PT INR APTT ABG pH ABG pO2 ABG HCO3 ABG O2 Saturation ABG Base Excess ABG Hemoglobin Oxyhemoglobin Sodium Potassium Chloride 96.5 L Carbon Dioxide BUN 21 H Creatinine 0.6 L Glucose 107 H POC Glucose 138 H Lactic Acid Calcium Ionized Calcium Phosphorus Magnesium Total Bilirubin AST ALT Alkaline Phosphatase Ammonia Total Creatine Kinase CK-MB (CK-2) CK-MB (CK-2) Rel Index Total Protein Albumin Urine WBC (Auto) Vancomycin Trough Salicylates Acetaminophen Plasma/Serum Alcohol Crossmatch 12/04/19 12/05/19 12/05/19 18:16 11:55 18:36 WBC RBC Hgb Hct MCH RDW Plt Count Lymph % (Auto) [place] % (Auto) [place] # Baso # Seg Neutrophils % Seg Neuts % (Manual) Lymphocytes % (Manual) Monocytes % (Manual) Seg Neutrophils # Seg Neutrophils # Man Lymphocytes # (Manual) Monocytes # (Manual) Eosinophils # (Manual) Basophils # (Manual) PT INR APTT ABG pH ABG pO2 ABG HCO3 ABG O2 Saturation ABG Base Excess ABG Hemoglobin Oxyhemoglobin Sodium Potassium Chloride Carbon Dioxide BUN Creatinine Glucose POC Glucose 135 H 125 H 135 H Lactic Acid Calcium Ionized Calcium Phosphorus Magnesium Total Bilirubin AST ALT Alkaline Phosphatase Ammonia Total Creatine Kinase CK-MB (CK-2) CK-MB (CK-2) Rel Index Total Protein Albumin Urine WBC (Auto) Vancomycin Trough Salicylates Acetaminophen Plasma/Serum Alcohol Crossmatch 12/05/19 12/06/19 12/06/19 23:30 04:14 05:43 WBC RBC Hgb Hct MCH RDW Plt Count Lymph % (Auto) [place] % (Auto) [place] # Baso # Seg Neutrophils % Seg Neuts % (Manual) Lymphocytes % (Manual) Monocytes % (Manual) Seg Neutrophils # Seg Neutrophils # Man Lymphocytes # (Manual) Monocytes # (Manual) Eosinophils # (Manual) Basophils # (Manual) PT INR APTT ABG pH ABG pO2 ABG HCO3 ABG O2 Saturation ABG Base Excess ABG Hemoglobin Oxyhemoglobin Sodium Potassium 5.6 H Chloride 95.0 L Carbon Dioxide BUN 48 H Creatinine 1.3 H D Glucose POC Glucose 126 H 121 H Lactic Acid Calcium Ionized Calcium Phosphorus Magnesium Total Bilirubin AST 89 H ALT 98 H Alkaline Phosphatase 476 H Ammonia Total Creatine Kinase CK-MB (CK-2) CK-MB (CK-2) Rel Index Total Protein Albumin 2.8 L Urine WBC (Auto) Vancomycin Trough Salicylates Acetaminophen Plasma/Serum Alcohol Crossmatch 12/06/19 12/06/19 12/07/19 10:39 14:34 00:19 WBC 17.3 H RBC 2.60 L Hgb 7.1 L Hct 22.7 L MCH 27 L RDW 20.1 H Plt Count 832 H Lymph % (Auto) [place] % (Auto) [place] # Baso # Seg Neutrophils % Seg Neuts % (Manual) Lymphocytes % (Manual) Monocytes % (Manual) Seg Neutrophils # Seg Neutrophils # Man Lymphocytes # (Manual) Monocytes # (Manual) Eosinophils # (Manual) Basophils # (Manual) PT INR APTT ABG pH ABG pO2 ABG HCO3 ABG O2 Saturation ABG Base Excess ABG Hemoglobin Oxyhemoglobin Sodium Potassium Chloride Carbon Dioxide BUN Creatinine Glucose POC Glucose 128 H 136 H Lactic Acid Calcium Ionized Calcium Phosphorus Magnesium Total Bilirubin AST ALT Alkaline Phosphatase Ammonia Total Creatine Kinase CK-MB (CK-2) CK-MB (CK-2) Rel Index Total Protein Albumin Urine WBC (Auto) Vancomycin Trough Salicylates Acetaminophen Plasma/Serum Alcohol Crossmatch 12/07/19 12/07/19 12/07/19 03:44 03:44 05:53 WBC 16.2 H RBC 2.56 L Hgb 7.1 L Hct 22.3 L MCH RDW 19.4 H Plt Count 782 H Lymph % (Auto) [place] % (Auto) [place] # Baso # Seg Neutrophils % Seg Neuts % (Manual) Lymphocytes % (Manual) Monocytes % (Manual) Seg Neutrophils # Seg Neutrophils # Man Lymphocytes # (Manual) Monocytes # (Manual) Eosinophils # (Manual) Basophils # (Manual) PT INR APTT ABG pH ABG pO2 ABG HCO3 ABG O2 Saturation ABG Base Excess ABG Hemoglobin Oxyhemoglobin Sodium Potassium Chloride 95.6 L Carbon Dioxide BUN 56 H Creatinine 1.4 H Glucose 120 H POC Glucose 128 H Lactic Acid Calcium 10.3 H Ionized Calcium Phosphorus Magnesium Total Bilirubin AST ALT Alkaline Phosphatase Ammonia Total Creatine Kinase CK-MB (CK-2) CK-MB (CK-2) Rel Index Total Protein Albumin Urine WBC (Auto) Vancomycin Trough Salicylates Acetaminophen Plasma/Serum Alcohol Crossmatch 12/07/19 12/07/19 12/08/19 12:54 23:47 00:20 WBC RBC Hgb Hct MCH RDW Plt Count Lymph % (Auto) [place] % (Auto) [place] # Baso # Seg Neutrophils % Seg Neuts % (Manual) Lymphocytes % (Manual) Monocytes % (Manual) Seg Neutrophils # Seg Neutrophils # Man Lymphocytes # (Manual) Monocytes # (Manual) Eosinophils # (Manual) Basophils # (Manual) PT INR APTT ABG pH ABG pO2 ABG HCO3 ABG O2 Saturation ABG Base Excess ABG Hemoglobin Oxyhemoglobin Sodium Potassium Chloride Carbon Dioxide BUN Creatinine Glucose POC Glucose 128 H 130 H 124 H Lactic Acid Calcium Ionized Calcium Phosphorus Magnesium Total Bilirubin AST ALT Alkaline Phosphatase Ammonia Total Creatine Kinase CK-MB (CK-2) CK-MB (CK-2) Rel Index Total Protein Albumin Urine WBC (Auto) Vancomycin Trough Salicylates Acetaminophen Plasma/Serum Alcohol Crossmatch 12/08/19 12/08/19 12/08/19 06:38 12:04 18:26 WBC RBC Hgb Hct MCH RDW Plt Count Lymph % (Auto) [place] % (Auto) [place] # Baso # Seg Neutrophils % Seg Neuts % (Manual) Lymphocytes % (Manual) Monocytes % (Manual) Seg Neutrophils # Seg Neutrophils # Man Lymphocytes # (Manual) Monocytes # (Manual) Eosinophils # (Manual) Basophils # (Manual) PT INR APTT ABG pH ABG pO2 ABG HCO3 ABG O2 Saturation ABG Base Excess ABG Hemoglobin Oxyhemoglobin Sodium Potassium Chloride Carbon Dioxide BUN Creatinine Glucose POC Glucose 137 H 129 H 150 H Lactic Acid Calcium Ionized Calcium Phosphorus Magnesium Total Bilirubin AST ALT Alkaline Phosphatase Ammonia Total Creatine Kinase CK-MB (CK-2) CK-MB (CK-2) Rel Index Total Protein Albumin Urine WBC (Auto) Vancomycin Trough Salicylates Acetaminophen Plasma/Serum Alcohol Crossmatch 12/09/19 12/09/19 12/09/19 00:56 05:34 06:13 WBC RBC Hgb Hct MCH RDW Plt Count Lymph % (Auto) [place] % (Auto) [place] # Baso # Seg Neutrophils % Seg Neuts % (Manual) Lymphocytes % (Manual) Monocytes % (Manual) Seg Neutrophils # Seg Neutrophils # Man Lymphocytes # (Manual) Monocytes # (Manual) Eosinophils # (Manual) Basophils # (Manual) PT INR APTT ABG pH ABG pO2 ABG HCO3 ABG O2 Saturation ABG Base Excess ABG Hemoglobin Oxyhemoglobin Sodium 146 H Potassium Chloride Carbon Dioxide BUN 66 H Creatinine 1.9 H Glucose 116 H POC Glucose 130 H 130 H Lactic Acid Calcium Ionized Calcium Phosphorus Magnesium Total Bilirubin AST ALT Alkaline Phosphatase Ammonia Total Creatine Kinase CK-MB (CK-2) CK-MB (CK-2) Rel Index Total Protein Albumin Urine WBC (Auto) Vancomycin Trough Salicylates Acetaminophen Plasma/Serum Alcohol Crossmatch 12/09/19 12/09/19 12/10/19 11:52 17:50 00:14 WBC RBC Hgb Hct MCH RDW Plt Count Lymph % (Auto) [place] % (Auto) [place] # Baso # Seg Neutrophils % Seg Neuts % (Manual) Lymphocytes % (Manual) Monocytes % (Manual) Seg Neutrophils # Seg Neutrophils # Man Lymphocytes # (Manual) Monocytes # (Manual) Eosinophils # (Manual) Basophils # (Manual) PT INR APTT ABG pH ABG pO2 ABG HCO3 ABG O2 Saturation ABG Base Excess ABG Hemoglobin Oxyhemoglobin Sodium Potassium Chloride Carbon Dioxide BUN Creatinine Glucose POC Glucose 135 H 120 H 116 H Lactic Acid Calcium Ionized Calcium Phosphorus Magnesium Total Bilirubin AST ALT Alkaline Phosphatase Ammonia Total Creatine Kinase CK-MB (CK-2) CK-MB (CK-2) Rel Index Total Protein Albumin Urine WBC (Auto) Vancomycin Trough Salicylates Acetaminophen Plasma/Serum Alcohol Crossmatch 12/10/19 12/10/19 12/10/19 05:38 11:38 17:34 WBC RBC Hgb Hct MCH RDW Plt Count Lymph % (Auto) [place] % (Auto) [place] # Baso # Seg Neutrophils % Seg Neuts % (Manual) Lymphocytes % (Manual) Monocytes % (Manual) Seg Neutrophils # Seg Neutrophils # Man Lymphocytes # (Manual) Monocytes # (Manual) Eosinophils # (Manual) Basophils # (Manual) PT INR APTT ABG pH ABG pO2 ABG HCO3 ABG O2 Saturation ABG Base Excess ABG Hemoglobin Oxyhemoglobin Sodium Potassium Chloride Carbon Dioxide BUN Creatinine Glucose POC Glucose 115 H 112 H 130 H Lactic Acid Calcium Ionized Calcium Phosphorus Magnesium Total Bilirubin AST ALT Alkaline Phosphatase Ammonia Total Creatine Kinase CK-MB (CK-2) CK-MB (CK-2) Rel Index Total Protein Albumin Urine WBC (Auto) Vancomycin Trough Salicylates Acetaminophen Plasma/Serum Alcohol Crossmatch 12/11/19 12/11/19 12/11/19 00:20 05:31 12:22 WBC RBC Hgb Hct MCH RDW Plt Count Lymph % (Auto) [place] % (Auto) [place] # Baso # Seg Neutrophils % Seg Neuts % (Manual) Lymphocytes % (Manual) Monocytes % (Manual) Seg Neutrophils # Seg Neutrophils # Man Lymphocytes # (Manual) Monocytes # (Manual) Eosinophils # (Manual) Basophils # (Manual) PT INR APTT ABG pH ABG pO2 ABG HCO3 ABG O2 Saturation ABG Base Excess ABG Hemoglobin Oxyhemoglobin Sodium Potassium Chloride Carbon Dioxide BUN Creatinine Glucose POC Glucose 124 H 132 H 128 H Lactic Acid Calcium Ionized Calcium Phosphorus Magnesium Total Bilirubin AST ALT Alkaline Phosphatase Ammonia Total Creatine Kinase CK-MB (CK-2) CK-MB (CK-2) Rel Index Total Protein Albumin Urine WBC (Auto) Vancomycin Trough Salicylates Acetaminophen Plasma/Serum Alcohol Crossmatch 12/11/19 12/11/19 12/12/19 18:04 23:42 03:51 WBC RBC Hgb Hct MCH RDW Plt Count Lymph % (Auto) [place] % (Auto) [place] # Baso # Seg Neutrophils % Seg Neuts % (Manual) Lymphocytes % (Manual) Monocytes % (Manual) Seg Neutrophils # Seg Neutrophils # Man Lymphocytes # (Manual) Monocytes # (Manual) Eosinophils # (Manual) Basophils # (Manual) PT INR APTT ABG pH ABG pO2 ABG HCO3 ABG O2 Saturation ABG Base Excess ABG Hemoglobin Oxyhemoglobin Sodium 149 H Potassium Chloride Carbon Dioxide 20 L D BUN 77 H Creatinine 2.8 H Glucose POC Glucose 133 H 154 H Lactic Acid Calcium Ionized Calcium Phosphorus Magnesium Total Bilirubin AST ALT Alkaline Phosphatase Ammonia Total Creatine Kinase CK-MB (CK-2) CK-MB (CK-2) Rel Index Total Protein Albumin Urine WBC (Auto) Vancomycin Trough Salicylates Acetaminophen Plasma/Serum Alcohol Crossmatch 12/12/19 12/12/19 12/12/19 05:18 05:26 10:30 WBC 18.0 H RBC 2.51 L Hgb 6.8 L Hct 22.0 L MCH 27 L RDW 19.9 H Plt Count 582 H Lymph % (Auto) [place] % (Auto) [place] # Baso # Seg Neutrophils % Seg Neuts % (Manual) Lymphocytes % (Manual) Monocytes % (Manual) Seg Neutrophils # Seg Neutrophils # Man Lymphocytes # (Manual) Monocytes # (Manual) Eosinophils # (Manual) Basophils # (Manual) PT INR APTT ABG pH ABG pO2 ABG HCO3 ABG O2 Saturation ABG Base Excess ABG Hemoglobin Oxyhemoglobin Sodium Potassium Chloride Carbon Dioxide BUN Creatinine Glucose POC Glucose 135 H Lactic Acid Calcium Ionized Calcium Phosphorus Magnesium Total Bilirubin AST ALT Alkaline Phosphatase Ammonia Total Creatine Kinase CK-MB (CK-2) CK-MB (CK-2) Rel Index Total Protein Albumin Urine WBC (Auto) Vancomycin Trough Salicylates Acetaminophen Plasma/Serum Alcohol Crossmatch See Detail 12/12/19 12/12/19 12/12/19 11:44 18:10 23:21 WBC RBC Hgb Hct MCH RDW Plt Count Lymph % (Auto) [place] % (Auto) [place] # Baso # Seg Neutrophils % Seg Neuts % (Manual) Lymphocytes % (Manual) Monocytes % (Manual) Seg Neutrophils # Seg Neutrophils # Man Lymphocytes # (Manual) Monocytes # (Manual) Eosinophils # (Manual) Basophils # (Manual) PT INR APTT ABG pH ABG pO2 ABG HCO3 ABG O2 Saturation ABG Base Excess ABG Hemoglobin Oxyhemoglobin Sodium Potassium Chloride Carbon Dioxide BUN Creatinine Glucose POC Glucose 108 H 107 H 126 H Lactic Acid Calcium Ionized Calcium Phosphorus Magnesium Total Bilirubin AST ALT Alkaline Phosphatase Ammonia Total Creatine Kinase CK-MB (CK-2) CK-MB (CK-2) Rel Index Total Protein Albumin Urine WBC (Auto) Vancomycin Trough Salicylates Acetaminophen Plasma/Serum Alcohol Crossmatch 12/13/19 12/13/19 12/13/19 05:41 07:48 07:48 WBC 38.3 H RBC 2.37 L Hgb 6.3 L Hct 20.9 L MCH 27 L RDW 20.2 H Plt Count 546 H Lymph % (Auto) [place] % (Auto) [place] # Baso # Seg Neutrophils % Seg Neuts % (Manual) 93.0 H Lymphocytes % (Manual) 1.0 L Monocytes % (Manual) Seg Neutrophils # Seg Neutrophils # Man 35.6 H Lymphocytes # (Manual) 0.4 L Monocytes # (Manual) Eosinophils # (Manual) Basophils # (Manual) 0.4 H PT INR APTT ABG pH ABG pO2 ABG HCO3 ABG O2 Saturation ABG Base Excess ABG Hemoglobin Oxyhemoglobin Sodium 152 H Potassium 3.1 L D Chloride 111.9 H Carbon Dioxide 21 L BUN 53 H Creatinine 1.9 H Glucose 141 H POC Glucose 128 H Lactic Acid Calcium Ionized Calcium Phosphorus Magnesium Total Bilirubin AST ALT Alkaline Phosphatase 316 H Ammonia Total Creatine Kinase CK-MB (CK-2) CK-MB (CK-2) Rel Index Total Protein Albumin 2.4 L Urine WBC (Auto) Vancomycin Trough Salicylates Acetaminophen Plasma/Serum Alcohol Crossmatch 12/13/19 12/13/19 12/14/19 18:17 23:19 05:36 WBC RBC Hgb Hct MCH RDW Plt Count Lymph % (Auto) [place] % (Auto) [place] # Baso # Seg Neutrophils % Seg Neuts % (Manual) Lymphocytes % (Manual) Monocytes % (Manual) Seg Neutrophils # Seg Neutrophils # Man Lymphocytes # (Manual) Monocytes # (Manual) Eosinophils # (Manual) Basophils # (Manual) PT INR APTT ABG pH ABG pO2 ABG HCO3 ABG O2 Saturation ABG Base Excess ABG Hemoglobin Oxyhemoglobin Sodium Potassium Chloride Carbon Dioxide BUN Creatinine Glucose POC Glucose 141 H 158 H 182 H Lactic Acid Calcium Ionized Calcium Phosphorus Magnesium Total Bilirubin AST ALT Alkaline Phosphatase Ammonia Total Creatine Kinase CK-MB (CK-2) CK-MB (CK-2) Rel Index Total Protein Albumin Urine WBC (Auto) Vancomycin Trough Salicylates Acetaminophen Plasma/Serum Alcohol Crossmatch 12/14/19 12/14/19 12/14/19 08:48 08:48 10:31 WBC 33.3 H RBC 2.70 L Hgb 7.9 L 8.0 L Hct 25.3 L 24.0 L MCH RDW 19.2 H Plt Count 476 H Lymph % (Auto) [place] % (Auto) [place] # Baso # Seg Neutrophils % Seg Neuts % (Manual) Lymphocytes % (Manual) Monocytes % (Manual) Seg Neutrophils # Seg Neutrophils # Man Lymphocytes # (Manual) Monocytes # (Manual) Eosinophils # (Manual) Basophils # (Manual) PT INR APTT ABG pH ABG pO2 ABG HCO3 ABG O2 Saturation ABG Base Excess ABG Hemoglobin Oxyhemoglobin Sodium 153 H Potassium 2.5 L* Chloride 114.9 H Carbon Dioxide 20 L BUN 38 H Creatinine 1.4 H Glucose 177 H POC Glucose Lactic Acid Calcium Ionized Calcium Phosphorus Magnesium Total Bilirubin AST ALT Alkaline Phosphatase Ammonia Total Creatine Kinase CK-MB (CK-2) CK-MB (CK-2) Rel Index Total Protein Albumin Urine WBC (Auto) Vancomycin Trough Salicylates Acetaminophen Plasma/Serum Alcohol Crossmatch 12/14/19 12/14/19 12/14/19 12:57 16:15 17:50 WBC RBC Hgb Hct MCH RDW Plt Count Lymph % (Auto) [place] % (Auto) [place] # Baso # Seg Neutrophils % Seg Neuts % (Manual) Lymphocytes % (Manual) Monocytes % (Manual) Seg Neutrophils # Seg Neutrophils # Man Lymphocytes # (Manual) Monocytes # (Manual) Eosinophils # (Manual) Basophils # (Manual) PT INR APTT ABG pH ABG pO2 73.6 L ABG HCO3 ABG O2 Saturation ABG Base Excess ABG Hemoglobin 7.6 L Oxyhemoglobin 94.0 L Sodium Potassium Chloride Carbon Dioxide BUN Creatinine Glucose POC Glucose 174 H 150 H Lactic Acid Calcium Ionized Calcium Phosphorus Magnesium Total Bilirubin AST ALT Alkaline Phosphatase Ammonia Total Creatine Kinase CK-MB (CK-2) CK-MB (CK-2) Rel Index Total Protein Albumin Urine WBC (Auto) Vancomycin Trough Salicylates Acetaminophen Plasma/Serum Alcohol Crossmatch 12/15/19 12/15/19 12/15/19 00:28 05:27 07:23 WBC 30.0 H RBC 3.11 L Hgb 8.6 L Hct 27.7 L MCH RDW 20.0 H Plt Count 473 H Lymph % (Auto) [place] % (Auto) [place] # Baso # Seg Neutrophils % Seg Neuts % (Manual) Lymphocytes % (Manual) Monocytes % (Manual) Seg Neutrophils # Seg Neutrophils # Man Lymphocytes # (Manual) Monocytes # (Manual) Eosinophils # (Manual) Basophils # (Manual) PT INR APTT ABG pH ABG pO2 ABG HCO3 ABG O2 Saturation ABG Base Excess ABG Hemoglobin Oxyhemoglobin Sodium Potassium Chloride Carbon Dioxide BUN Creatinine Glucose POC Glucose 167 H 148 H Lactic Acid Calcium Ionized Calcium Phosphorus Magnesium Total Bilirubin AST ALT Alkaline Phosphatase Ammonia Total Creatine Kinase CK-MB (CK-2) CK-MB (CK-2) Rel Index Total Protein Albumin Urine WBC (Auto) Vancomycin Trough Salicylates Acetaminophen Plasma/Serum Alcohol Crossmatch 12/15/19 12/15/19 12/15/19 07:23 12:21 17:41 WBC RBC Hgb Hct MCH RDW Plt Count Lymph % (Auto) [place] % (Auto) [place] # Baso # Seg Neutrophils % Seg Neuts % (Manual) Lymphocytes % (Manual) Monocytes % (Manual) Seg Neutrophils # Seg Neutrophils # Man Lymphocytes # (Manual) Monocytes # (Manual) Eosinophils # (Manual) Basophils # (Manual) PT INR APTT ABG pH ABG pO2 ABG HCO3 ABG O2 Saturation ABG Base Excess ABG Hemoglobin Oxyhemoglobin Sodium 147 H Potassium 3.5 L D Chloride 111.2 H Carbon Dioxide 19 L BUN 29 H Creatinine Glucose 126 H POC Glucose 154 H 144 H Lactic Acid Calcium Ionized Calcium Phosphorus Magnesium Total Bilirubin AST ALT Alkaline Phosphatase Ammonia Total Creatine Kinase CK-MB (CK-2) CK-MB (CK-2) Rel Index Total Protein Albumin Urine WBC (Auto) Vancomycin Trough Salicylates Acetaminophen Plasma/Serum Alcohol Crossmatch 12/16/19 12/16/19 12/16/19 00:22 05:30 05:44 WBC 30.8 H RBC 2.58 L Hgb 7.1 L Hct 22.7 L MCH RDW 19.6 H Plt Count 451 H Lymph % (Auto) [place] % (Auto) [place] # Baso # Seg Neutrophils % Seg Neuts % (Manual) Lymphocytes % (Manual) Monocytes % (Manual) Seg Neutrophils # Seg Neutrophils # Man Lymphocytes # (Manual) Monocytes # (Manual) Eosinophils # (Manual) Basophils # (Manual) PT INR APTT ABG pH ABG pO2 ABG HCO3 ABG O2 Saturation ABG Base Excess ABG Hemoglobin Oxyhemoglobin Sodium Potassium Chloride Carbon Dioxide BUN Creatinine Glucose POC Glucose 139 H 126 H Lactic Acid Calcium Ionized Calcium Phosphorus Magnesium Total Bilirubin AST ALT Alkaline Phosphatase Ammonia Total Creatine Kinase CK-MB (CK-2) CK-MB (CK-2) Rel Index Total Protein Albumin Urine WBC (Auto) Vancomycin Trough Salicylates Acetaminophen Plasma/Serum Alcohol Crossmatch 12/16/19 12/16/19 12/16/19 05:44 11:48 17:37 WBC RBC Hgb Hct MCH RDW Plt Count Lymph % (Auto) [place] % (Auto) [place] # Baso # Seg Neutrophils % Seg Neuts % (Manual) Lymphocytes % (Manual) Monocytes % (Manual) Seg Neutrophils # Seg Neutrophils # Man Lymphocytes # (Manual) Monocytes # (Manual) Eosinophils # (Manual) Basophils # (Manual) PT INR APTT ABG pH ABG pO2 ABG HCO3 ABG O2 Saturation ABG Base Excess ABG Hemoglobin Oxyhemoglobin Sodium Potassium 3.4 L Chloride 109.2 H Carbon Dioxide 19 L BUN 27 H Creatinine Glucose 124 H POC Glucose 125 H 148 H Lactic Acid Calcium Ionized Calcium Phosphorus Magnesium Total Bilirubin AST ALT Alkaline Phosphatase Ammonia Total Creatine Kinase CK-MB (CK-2) CK-MB (CK-2) Rel Index Total Protein Albumin Urine WBC (Auto) Vancomycin Trough Salicylates Acetaminophen Plasma/Serum Alcohol Crossmatch 12/16/19 12/17/19 12/17/19 23:43 05:28 12:47 WBC RBC Hgb Hct MCH RDW Plt Count Lymph % (Auto) [place] % (Auto) [place] # Baso # Seg Neutrophils % Seg Neuts % (Manual) Lymphocytes % (Manual) Monocytes % (Manual) Seg Neutrophils # Seg Neutrophils # Man Lymphocytes # (Manual) Monocytes # (Manual) Eosinophils # (Manual) Basophils # (Manual) PT INR APTT ABG pH ABG pO2 ABG HCO3 ABG O2 Saturation ABG Base Excess ABG Hemoglobin Oxyhemoglobin Sodium Potassium Chloride Carbon Dioxide BUN Creatinine Glucose POC Glucose 142 H 140 H 125 H Lactic Acid Calcium Ionized Calcium Phosphorus Magnesium Total Bilirubin AST ALT Alkaline Phosphatase Ammonia Total Creatine Kinase CK-MB (CK-2) CK-MB (CK-2) Rel Index Total Protein Albumin Urine WBC (Auto) Vancomycin Trough Salicylates Acetaminophen Plasma/Serum Alcohol Crossmatch 03/12/17/19 12/17/19 17:05 18:00 Unknown WBC RBC Hgb Hct MCH RDW Plt Count Lymph % (Auto) [place] % (Auto) [place] # Baso # Seg Neutrophils % Seg Neuts % (Manual) Lymphocytes % (Manual) Monocytes % (Manual) Seg Neutrophils # Seg Neutrophils # Man Lymphocytes # (Manual) Monocytes # (Manual) Eosinophils # (Manual) Basophils # (Manual) PT INR APTT ABG pH ABG pO2 68.1 L ABG HCO3 ABG O2 Saturation 93.7 L ABG Base Excess ABG Hemoglobin 5.0 L Oxyhemoglobin 91.7 L Sodium Potassium Chloride Carbon Dioxide BUN Creatinine Glucose POC Glucose 140 H Lactic Acid Calcium Ionized Calcium Phosphorus Magnesium Total Bilirubin AST ALT Alkaline Phosphatase Ammonia Total Creatine Kinase CK-MB (CK-2) CK-MB (CK-2) Rel Index Total Protein Albumin Urine WBC (Auto) Vancomycin Trough Salicylates Acetaminophen Plasma/Serum Alcohol Crossmatch 12/18/19 12/18/19 12/18/19 00:16 04:53 04:53 WBC 28.6 H RBC 2.27 L Hgb 6.3 L Hct 19.5 L* MCH RDW 20.0 H Plt Count 497 H Lymph % (Auto) [place] % (Auto) [place] # Baso # Seg Neutrophils % Seg Neuts % (Manual) Lymphocytes % (Manual) Monocytes % (Manual) Seg Neutrophils # Seg Neutrophils # Man Lymphocytes # (Manual) Monocytes # (Manual) Eosinophils # (Manual) Basophils # (Manual) PT INR APTT ABG pH ABG pO2 ABG HCO3 ABG O2 Saturation ABG Base Excess ABG Hemoglobin Oxyhemoglobin Sodium Potassium Chloride 107.9 H Carbon Dioxide 20 L BUN 27 H Creatinine 0.6 L Glucose 116 H POC Glucose 123 H Lactic Acid Calcium Ionized Calcium Phosphorus Magnesium Total Bilirubin AST ALT Alkaline Phosphatase Ammonia Total Creatine Kinase CK-MB (CK-2) CK-MB (CK-2) Rel Index Total Protein Albumin Urine WBC (Auto) Vancomycin Trough Salicylates Acetaminophen Plasma/Serum Alcohol Crossmatch 12/18/19 12/18/19 12/18/19 06:38 11:22 12:08 WBC RBC Hgb Hct MCH RDW Plt Count Lymph % (Auto) [place] % (Auto) [place] # Baso # Seg Neutrophils % Seg Neuts % (Manual) Lymphocytes % (Manual) Monocytes % (Manual) Seg Neutrophils # Seg Neutrophils # Man Lymphocytes # (Manual) Monocytes # (Manual) Eosinophils # (Manual) Basophils # (Manual) PT INR APTT ABG pH ABG pO2 ABG HCO3 ABG O2 Saturation ABG Base Excess ABG Hemoglobin Oxyhemoglobin Sodium Potassium Chloride Carbon Dioxide BUN Creatinine Glucose POC Glucose 120 H 127 H Lactic Acid Calcium Ionized Calcium Phosphorus Magnesium Total Bilirubin AST ALT Alkaline Phosphatase Ammonia Total Creatine Kinase CK-MB (CK-2) CK-MB (CK-2) Rel Index Total Protein Albumin Urine WBC (Auto) Vancomycin Trough Salicylates Acetaminophen Plasma/Serum Alcohol Crossmatch See Detail 12/18/19 12/18/19 12/18/19 14:05 17:49 23:53 WBC RBC Hgb Hct MCH RDW Plt Count Lymph % (Auto) [place] % (Auto) [place] # Baso # Seg Neutrophils % Seg Neuts % (Manual) Lymphocytes % (Manual) Monocytes % (Manual) Seg Neutrophils # Seg Neutrophils # Man Lymphocytes # (Manual) Monocytes # (Manual) Eosinophils # (Manual) Basophils # (Manual) PT INR APTT ABG pH 7.267 L ABG pO2 69.8 L ABG HCO3 ABG O2 Saturation 88.4 L ABG Base Excess ABG Hemoglobin 7.1 L Oxyhemoglobin 86.4 L Sodium Potassium Chloride Carbon Dioxide BUN Creatinine Glucose POC Glucose 157 H 128 H Lactic Acid Calcium Ionized Calcium Phosphorus Magnesium Total Bilirubin AST ALT Alkaline Phosphatase Ammonia Total Creatine Kinase CK-MB (CK-2) CK-MB (CK-2) Rel Index Total Protein Albumin Urine WBC (Auto) Vancomycin Trough Salicylates Acetaminophen Plasma/Serum Alcohol Crossmatch 12/19/19 12/19/19 12/19/19 03:37 03:37 05:25 WBC 31.3 H RBC 2.60 L Hgb 7.6 L Hct 23.0 L MCH RDW 19.4 H Plt Count 530 H Lymph % (Auto) [place] % (Auto) [place] # Baso # Seg Neutrophils % Seg Neuts % (Manual) Lymphocytes % (Manual) Monocytes % (Manual) Seg Neutrophils # Seg Neutrophils # Man Lymphocytes # (Manual) Monocytes # (Manual) Eosinophils # (Manual) Basophils # (Manual) PT INR APTT ABG pH ABG pO2 ABG HCO3 ABG O2 Saturation ABG Base Excess ABG Hemoglobin Oxyhemoglobin Sodium Potassium Chloride Carbon Dioxide 18 L BUN 36 H Creatinine Glucose 111 H POC Glucose 123 H Lactic Acid Calcium Ionized Calcium Phosphorus Magnesium Total Bilirubin AST ALT Alkaline Phosphatase Ammonia Total Creatine Kinase CK-MB (CK-2) CK-MB (CK-2) Rel Index Total Protein Albumin Urine WBC (Auto) Vancomycin Trough Salicylates Acetaminophen Plasma/Serum Alcohol Crossmatch 12/19/19 12/19/19 12/20/19 12:59 18:33 00:00 WBC RBC Hgb Hct MCH RDW Plt Count Lymph % (Auto) [place] % (Auto) [place] # Baso # Seg Neutrophils % Seg Neuts % (Manual) Lymphocytes % (Manual) Monocytes % (Manual) Seg Neutrophils # Seg Neutrophils # Man Lymphocytes # (Manual) Monocytes # (Manual) Eosinophils # (Manual) Basophils # (Manual) PT INR APTT ABG pH ABG pO2 ABG HCO3 ABG O2 Saturation ABG Base Excess ABG Hemoglobin Oxyhemoglobin Sodium Potassium Chloride Carbon Dioxide BUN Creatinine Glucose POC Glucose 130 H 118 H 135 H Lactic Acid Calcium Ionized Calcium Phosphorus Magnesium Total Bilirubin AST ALT Alkaline Phosphatase Ammonia Total Creatine Kinase CK-MB (CK-2) CK-MB (CK-2) Rel Index Total Protein Albumin Urine WBC (Auto) Vancomycin Trough Salicylates Acetaminophen Plasma/Serum Alcohol Crossmatch 12/20/19 12/20/19 12/20/19 05:46 12:31 18:07 WBC RBC Hgb Hct MCH RDW Plt Count Lymph % (Auto) [place] % (Auto) [place] # Baso # Seg Neutrophils % Seg Neuts % (Manual) Lymphocytes % (Manual) Monocytes % (Manual) Seg Neutrophils # Seg Neutrophils # Man Lymphocytes # (Manual) Monocytes # (Manual) Eosinophils # (Manual) Basophils # (Manual) PT INR APTT ABG pH ABG pO2 ABG HCO3 ABG O2 Saturation ABG Base Excess ABG Hemoglobin Oxyhemoglobin Sodium Potassium Chloride Carbon Dioxide BUN Creatinine Glucose POC Glucose 131 H 128 H 134 H Lactic Acid Calcium Ionized Calcium Phosphorus Magnesium Total Bilirubin AST ALT Alkaline Phosphatase Ammonia Total Creatine Kinase CK-MB (CK-2) CK-MB (CK-2) Rel Index Total Protein Albumin Urine WBC (Auto) Vancomycin Trough Salicylates Acetaminophen Plasma/Serum Alcohol Crossmatch 12/21/19 12/21/19 12/21/19 03:28 03:28 07:21 WBC 29.4 H RBC 2.30 L Hgb 6.8 L Hct 20.2 L MCH RDW 20.2 H Plt Count 746 H Lymph % (Auto) [place] % (Auto) [place] # Baso # Seg Neutrophils % Seg Neuts % (Manual) 85.0 H Lymphocytes % (Manual) 8.0 L Monocytes % (Manual) Seg Neutrophils # Seg Neutrophils # Man 25.0 H Lymphocytes # (Manual) Monocytes # (Manual) 1.5 H Eosinophils # (Manual) 0.6 H Basophils # (Manual) PT INR APTT ABG pH ABG pO2 ABG HCO3 ABG O2 Saturation ABG Base Excess ABG Hemoglobin Oxyhemoglobin Sodium Potassium Chloride Carbon Dioxide 17 L BUN 57 H Creatinine 1.4 H D Glucose POC Glucose 124 H Lactic Acid Calcium Ionized Calcium Phosphorus Magnesium Total Bilirubin AST ALT Alkaline Phosphatase Ammonia Total Creatine Kinase CK-MB (CK-2) CK-MB (CK-2) Rel Index Total Protein Albumin Urine WBC (Auto) Vancomycin Trough Salicylates Acetaminophen Plasma/Serum Alcohol Crossmatch 12/21/19 12/21/19 12/21/19 08:56 12:06 14:53 WBC RBC Hgb 7.2 L Hct 22.9 L MCH RDW Plt Count Lymph % (Auto) [place] % (Auto) [place] # Baso # Seg Neutrophils % Seg Neuts % (Manual) Lymphocytes % (Manual) Monocytes % (Manual) Seg Neutrophils # Seg Neutrophils # Man Lymphocytes # (Manual) Monocytes # (Manual) Eosinophils # (Manual) Basophils # (Manual) PT INR APTT ABG pH ABG pO2 ABG HCO3 ABG O2 Saturation ABG Base Excess ABG Hemoglobin Oxyhemoglobin Sodium Potassium Chloride Carbon Dioxide BUN Creatinine Glucose POC Glucose 116 H Lactic Acid Calcium Ionized Calcium Phosphorus Magnesium Total Bilirubin AST ALT Alkaline Phosphatase Ammonia Total Creatine Kinase CK-MB (CK-2) CK-MB (CK-2) Rel Index Total Protein Albumin Urine WBC (Auto) Vancomycin Trough 33.8 H Salicylates Acetaminophen Plasma/Serum Alcohol Crossmatch 12/21/19 12/21/19 12/21/19 14:54 17:27 23:49 WBC RBC Hgb Hct MCH RDW Plt Count Lymph % (Auto) [place] % (Auto) [place] # Baso # Seg Neutrophils % Seg Neuts % (Manual) Lymphocytes % (Manual) Monocytes % (Manual) Seg Neutrophils # Seg Neutrophils # Man Lymphocytes # (Manual) Monocytes # (Manual) Eosinophils # (Manual) Basophils # (Manual) PT INR APTT ABG pH ABG pO2 ABG HCO3 ABG O2 Saturation ABG Base Excess ABG Hemoglobin Oxyhemoglobin Sodium Potassium Chloride Carbon Dioxide BUN Creatinine Glucose POC Glucose 145 H 127 H Lactic Acid Calcium Ionized Calcium Phosphorus Magnesium Total Bilirubin AST ALT Alkaline Phosphatase Ammonia Total Creatine Kinase CK-MB (CK-2) CK-MB (CK-2) Rel Index Total Protein Albumin Urine WBC (Auto) Vancomycin Trough Salicylates Acetaminophen Plasma/Serum Alcohol Crossmatch See Detail 12/22/19 12/22/19 12/22/19 04:43 05:56 08:40 WBC RBC Hgb Hct MCH RDW Plt Count Lymph % (Auto) [place] % (Auto) [place] # Baso # Seg Neutrophils % Seg Neuts % (Manual) Lymphocytes % (Manual) Monocytes % (Manual) Seg Neutrophils # Seg Neutrophils # Man Lymphocytes # (Manual) Monocytes # (Manual) Eosinophils # (Manual) Basophils # (Manual) PT INR APTT ABG pH ABG pO2 75.6 L ABG HCO3 ABG O2 Saturation ABG Base Excess -2.6 L ABG Hemoglobin 6.8 L Oxyhemoglobin 94.6 L Sodium Potassium Chloride Carbon Dioxide 17 L BUN 60 H Creatinine 1.4 H Glucose 126 H POC Glucose 153 H Lactic Acid Calcium Ionized Calcium Phosphorus Magnesium Total Bilirubin AST ALT Alkaline Phosphatase Ammonia Total Creatine Kinase CK-MB (CK-2) CK-MB (CK-2) Rel Index Total Protein Albumin Urine WBC (Auto) Vancomycin Trough Salicylates Acetaminophen Plasma/Serum Alcohol Crossmatch 12/22/19 12/22/19 12/23/19 12:07 17:49 04:30 WBC 22.4 H RBC 2.68 L Hgb 7.6 L Hct 22.9 L MCH RDW 19.9 H Plt Count 998 H Lymph % (Auto) [place] % (Auto) [place] # Baso # Seg Neutrophils % Seg Neuts % (Manual) 88.0 H Lymphocytes % (Manual) 2.0 L Monocytes % (Manual) 9.0 H Seg Neutrophils # Seg Neutrophils # Man 19.7 H Lymphocytes # (Manual) 0.4 L Monocytes # (Manual) 2.0 H Eosinophils # (Manual) Basophils # (Manual) PT INR APTT ABG pH ABG pO2 ABG HCO3 ABG O2 Saturation ABG Base Excess ABG Hemoglobin Oxyhemoglobin Sodium Potassium Chloride Carbon Dioxide BUN Creatinine Glucose POC Glucose 140 H 116 H Lactic Acid Calcium Ionized Calcium Phosphorus Magnesium Total Bilirubin AST ALT Alkaline Phosphatase Ammonia Total Creatine Kinase CK-MB (CK-2) CK-MB (CK-2) Rel Index Total Protein Albumin Urine WBC (Auto) Vancomycin Trough Salicylates Acetaminophen Plasma/Serum Alcohol Crossmatch 12/23/19 12/23/19 12/23/19 04:30 12:00 18:06 WBC RBC Hgb Hct MCH RDW Plt Count Lymph % (Auto) [place] % (Auto) [place] # Baso # Seg Neutrophils % Seg Neuts % (Manual) Lymphocytes % (Manual) Monocytes % (Manual) Seg Neutrophils # Seg Neutrophils # Man Lymphocytes # (Manual) Monocytes # (Manual) Eosinophils # (Manual) Basophils # (Manual) PT INR APTT ABG pH ABG pO2 ABG HCO3 ABG O2 Saturation ABG Base Excess ABG Hemoglobin Oxyhemoglobin Sodium Potassium 5.2 H Chloride Carbon Dioxide 21 L BUN 69 H Creatinine 1.5 H Glucose 117 H POC Glucose 128 H 138 H Lactic Acid Calcium Ionized Calcium Phosphorus Magnesium Total Bilirubin AST ALT Alkaline Phosphatase Ammonia Total Creatine Kinase CK-MB (CK-2) CK-MB (CK-2) Rel Index Total Protein Albumin Urine WBC (Auto) Vancomycin Trough Salicylates Acetaminophen Plasma/Serum Alcohol Crossmatch 12/23/19 12/24/19 12/24/19 23:46 04:31 05:08 WBC RBC Hgb Hct MCH RDW Plt Count Lymph % (Auto) [place] % (Auto) [place] # Baso # Seg Neutrophils % Seg Neuts % (Manual) Lymphocytes % (Manual) Monocytes % (Manual) Seg Neutrophils # Seg Neutrophils # Man Lymphocytes # (Manual) Monocytes # (Manual) Eosinophils # (Manual) Basophils # (Manual) PT INR APTT ABG pH ABG pO2 ABG HCO3 ABG O2 Saturation ABG Base Excess ABG Hemoglobin Oxyhemoglobin Sodium Potassium 5.3 H Chloride 107.6 H Carbon Dioxide 20 L BUN 72 H Creatinine 1.6 H Glucose 120 H POC Glucose 120 H 140 H Lactic Acid Calcium Ionized Calcium Phosphorus Magnesium Total Bilirubin AST ALT Alkaline Phosphatase Ammonia Total Creatine Kinase CK-MB (CK-2) CK-MB (CK-2) Rel Index Total Protein Albumin Urine WBC (Auto) Vancomycin Trough Salicylates Acetaminophen Plasma/Serum Alcohol Crossmatch 12/24/19 12/24/19 12/25/19 11:58 17:49 03:47 WBC 36.2 H RBC 2.92 L Hgb 8.4 L Hct 26.1 L MCH RDW 20.2 H Plt Count 942 H Lymph % (Auto) [place] % (Auto) [place] # Baso # Seg Neutrophils % Seg Neuts % (Manual) 97.5 H Lymphocytes % (Manual) 1.0 L Monocytes % (Manual) Seg Neutrophils # Seg Neutrophils # Man 35.3 H Lymphocytes # (Manual) 0.4 L Monocytes # (Manual) Eosinophils # (Manual) Basophils # (Manual) PT INR APTT ABG pH ABG pO2 ABG HCO3 ABG O2 Saturation ABG Base Excess ABG Hemoglobin Oxyhemoglobin Sodium Potassium Chloride Carbon Dioxide BUN Creatinine Glucose POC Glucose 146 H 131 H Lactic Acid Calcium Ionized Calcium Phosphorus Magnesium Total Bilirubin AST ALT Alkaline Phosphatase Ammonia Total Creatine Kinase CK-MB (CK-2) CK-MB (CK-2) Rel Index Total Protein Albumin Urine WBC (Auto) Vancomycin Trough Salicylates Acetaminophen Plasma/Serum Alcohol Crossmatch 12/25/19 12/25/19 12/25/19 03:47 05:30 12:23 WBC RBC Hgb Hct MCH RDW Plt Count Lymph % (Auto) [place] % (Auto) [place] # Baso # Seg Neutrophils % Seg Neuts % (Manual) Lymphocytes % (Manual) Monocytes % (Manual) Seg Neutrophils # Seg Neutrophils # Man Lymphocytes # (Manual) Monocytes # (Manual) Eosinophils # (Manual) Basophils # (Manual) PT INR APTT ABG pH ABG pO2 ABG HCO3 ABG O2 Saturation ABG Base Excess ABG Hemoglobin Oxyhemoglobin Sodium Potassium Chloride Carbon Dioxide 15 L BUN 70 H Creatinine 1.7 H Glucose 153 H POC Glucose 169 H 135 H Lactic Acid Calcium Ionized Calcium Phosphorus Magnesium Total Bilirubin AST ALT Alkaline Phosphatase Ammonia Total Creatine Kinase CK-MB (CK-2) CK-MB (CK-2) Rel Index Total Protein Albumin Urine WBC (Auto) Vancomycin Trough Salicylates Acetaminophen Plasma/Serum Alcohol Crossmatch 12/25/19 12/25/19 12/26/19 17:37 23:29 09:47 WBC 22.1 H RBC 2.83 L Hgb 7.9 L Hct 25.5 L MCH RDW 20.0 H Plt Count 894 H Lymph % (Auto) [place] % (Auto) [place] # Baso # Seg Neutrophils % Seg Neuts % (Manual) Lymphocytes % (Manual) Monocytes % (Manual) Seg Neutrophils # Seg Neutrophils # Man Lymphocytes # (Manual) Monocytes # (Manual) Eosinophils # (Manual) Basophils # (Manual) PT INR APTT ABG pH ABG pO2 ABG HCO3 ABG O2 Saturation ABG Base Excess ABG Hemoglobin Oxyhemoglobin Sodium Potassium Chloride Carbon Dioxide BUN Creatinine Glucose POC Glucose 120 H 140 H Lactic Acid Calcium Ionized Calcium Phosphorus Magnesium Total Bilirubin AST ALT Alkaline Phosphatase Ammonia Total Creatine Kinase CK-MB (CK-2) CK-MB (CK-2) Rel Index Total Protein Albumin Urine WBC (Auto) Vancomycin Trough Salicylates Acetaminophen Plasma/Serum Alcohol Crossmatch 12/26/19 12/26/19 12/26/19 09:47 11:46 17:52 WBC RBC Hgb Hct MCH RDW Plt Count Lymph % (Auto) [place] % (Auto) [place] # Baso # Seg Neutrophils % Seg Neuts % (Manual) Lymphocytes % (Manual) Monocytes % (Manual) Seg Neutrophils # Seg Neutrophils # Man Lymphocytes # (Manual) Monocytes # (Manual) Eosinophils # (Manual) Basophils # (Manual) PT INR APTT ABG pH ABG pO2 ABG HCO3 ABG O2 Saturation ABG Base Excess ABG Hemoglobin Oxyhemoglobin Sodium Potassium Chloride Carbon Dioxide 18 L BUN 65 H Creatinine 1.4 H Glucose 132 H POC Glucose 110 H 145 H Lactic Acid Calcium Ionized Calcium Phosphorus Magnesium Total Bilirubin AST ALT Alkaline Phosphatase Ammonia Total Creatine Kinase CK-MB (CK-2) CK-MB (CK-2) Rel Index Total Protein Albumin Urine WBC (Auto) Vancomycin Trough Salicylates Acetaminophen Plasma/Serum Alcohol Crossmatch 12/27/19 12/27/19 12/27/19 00:01 03:42 03:42 WBC 18.0 H RBC 2.86 L Hgb 8.0 L Hct 25.2 L MCH RDW 19.2 H Plt Count 873 H Lymph % (Auto) 8.4 L [place] % (Auto) 7.5 H [place] # 1.4 H Baso # 0.2 H Seg Neutrophils % 82.2 H Seg Neuts % (Manual) Lymphocytes % (Manual) Monocytes % (Manual) Seg Neutrophils # 14.8 H Seg Neutrophils # Man Lymphocytes # (Manual) Monocytes # (Manual) Eosinophils # (Manual) Basophils # (Manual) PT INR APTT ABG pH ABG pO2 ABG HCO3 ABG O2 Saturation ABG Base Excess ABG Hemoglobin Oxyhemoglobin Sodium Potassium Chloride Carbon Dioxide BUN 73 H Creatinine 1.4 H Glucose 119 H POC Glucose 124 H Lactic Acid Calcium Ionized Calcium Phosphorus Magnesium Total Bilirubin AST ALT Alkaline Phosphatase Ammonia Total Creatine Kinase CK-MB (CK-2) CK-MB (CK-2) Rel Index Total Protein Albumin Urine WBC (Auto) Vancomycin Trough Salicylates Acetaminophen Plasma/Serum Alcohol Crossmatch 12/27/19 12/27/19 12/27/19 05:45 11:45 17:29 WBC RBC Hgb Hct MCH RDW Plt Count Lymph % (Auto) [place] % (Auto) [place] # Baso # Seg Neutrophils % Seg Neuts % (Manual) Lymphocytes % (Manual) Monocytes % (Manual) Seg Neutrophils # Seg Neutrophils # Man Lymphocytes # (Manual) Monocytes # (Manual) Eosinophils # (Manual) Basophils # (Manual) PT INR APTT ABG pH ABG pO2 ABG HCO3 ABG O2 Saturation ABG Base Excess ABG Hemoglobin Oxyhemoglobin Sodium Potassium Chloride Carbon Dioxide BUN Creatinine Glucose POC Glucose 131 H 123 H 134 H Lactic Acid Calcium Ionized Calcium Phosphorus Magnesium Total Bilirubin AST ALT Alkaline Phosphatase Ammonia Total Creatine Kinase CK-MB (CK-2) CK-MB (CK-2) Rel Index Total Protein Albumin Urine WBC (Auto) Vancomycin Trough Salicylates Acetaminophen Plasma/Serum Alcohol Crossmatch 12/28/19 12/28/19 12/28/19 00:12 05:14 11:53 WBC RBC Hgb Hct MCH RDW Plt Count Lymph % (Auto) [place] % (Auto) [place] # Baso # Seg Neutrophils % Seg Neuts % (Manual) Lymphocytes % (Manual) Monocytes % (Manual) Seg Neutrophils # Seg Neutrophils # Man Lymphocytes # (Manual) Monocytes # (Manual) Eosinophils # (Manual) Basophils # (Manual) PT INR APTT ABG pH ABG pO2 ABG HCO3 ABG O2 Saturation ABG Base Excess ABG Hemoglobin Oxyhemoglobin Sodium Potassium Chloride Carbon Dioxide BUN Creatinine Glucose POC Glucose 138 H 130 H 146 H Lactic Acid Calcium Ionized Calcium Phosphorus Magnesium Total Bilirubin AST ALT Alkaline Phosphatase Ammonia Total Creatine Kinase CK-MB (CK-2) CK-MB (CK-2) Rel Index Total Protein Albumin Urine WBC (Auto) Vancomycin Trough Salicylates Acetaminophen Plasma/Serum Alcohol Crossmatch 12/28/19 12/29/19 12/29/19 17:39 00:01 18:11 WBC RBC Hgb Hct MCH RDW Plt Count Lymph % (Auto) [place] % (Auto) [place] # Baso # Seg Neutrophils % Seg Neuts % (Manual) Lymphocytes % (Manual) Monocytes % (Manual) Seg Neutrophils # Seg Neutrophils # Man Lymphocytes # (Manual) Monocytes # (Manual) Eosinophils # (Manual) Basophils # (Manual) PT INR APTT ABG pH ABG pO2 ABG HCO3 ABG O2 Saturation ABG Base Excess ABG Hemoglobin Oxyhemoglobin Sodium Potassium Chloride Carbon Dioxide BUN Creatinine Glucose POC Glucose 117 H 139 H 130 H Lactic Acid Calcium Ionized Calcium Phosphorus Magnesium Total Bilirubin AST ALT Alkaline Phosphatase Ammonia Total Creatine Kinase CK-MB (CK-2) CK-MB (CK-2) Rel Index Total Protein Albumin Urine WBC (Auto) Vancomycin Trough Salicylates Acetaminophen Plasma/Serum Alcohol Crossmatch 12/29/19 12/30/19 12/30/19 23:09 00:02 01:06 WBC 16.7 H RBC 2.91 L Hgb 8.2 L Hct 25.4 L MCH RDW 18.7 H Plt Count 708 H Lymph % (Auto) 9.4 L [place] % (Auto) [place] # 0.9 H Baso # Seg Neutrophils % 83.5 H Seg Neuts % (Manual) Lymphocytes % (Manual) Monocytes % (Manual) Seg Neutrophils # 14.0 H Seg Neutrophils # Man Lymphocytes # (Manual) Monocytes # (Manual) Eosinophils # (Manual) Basophils # (Manual) PT INR APTT ABG pH ABG pO2 ABG HCO3 ABG O2 Saturation ABG Base Excess ABG Hemoglobin Oxyhemoglobin Sodium Potassium Chloride Carbon Dioxide BUN Creatinine Glucose POC Glucose 120 H 114 H Lactic Acid Calcium Ionized Calcium Phosphorus Magnesium Total Bilirubin AST ALT Alkaline Phosphatase Ammonia Total Creatine Kinase CK-MB (CK-2) CK-MB (CK-2) Rel Index Total Protein Albumin Urine WBC (Auto) Vancomycin Trough Salicylates Acetaminophen Plasma/Serum Alcohol Crossmatch 12/30/19 12/30/19 12/30/19 01:06 04:23 05:18 WBC RBC Hgb Hct MCH RDW Plt Count Lymph % (Auto) [place] % (Auto) [place] # Baso # Seg Neutrophils % Seg Neuts % (Manual) Lymphocytes % (Manual) Monocytes % (Manual) Seg Neutrophils # Seg Neutrophils # Man Lymphocytes # (Manual) Monocytes # (Manual) Eosinophils # (Manual) Basophils # (Manual) PT INR APTT ABG pH ABG pO2 ABG HCO3 ABG O2 Saturation ABG Base Excess ABG Hemoglobin 8.3 L Oxyhemoglobin Sodium Potassium Chloride Carbon Dioxide BUN 70 H Creatinine Glucose 122 H POC Glucose 130 H Lactic Acid Calcium Ionized Calcium Phosphorus Magnesium Total Bilirubin AST ALT Alkaline Phosphatase Ammonia Total Creatine Kinase CK-MB (CK-2) CK-MB (CK-2) Rel Index Total Protein Albumin Urine WBC (Auto) Vancomycin Trough Salicylates Acetaminophen Plasma/Serum Alcohol Crossmatch 12/30/19 12/30/19 12/30/19 05:40 12:17 17:43 WBC RBC Hgb Hct MCH RDW Plt Count Lymph % (Auto) [place] % (Auto) [place] # Baso # Seg Neutrophils % Seg Neuts % (Manual) Lymphocytes % (Manual) Monocytes % (Manual) Seg Neutrophils # Seg Neutrophils # Man Lymphocytes # (Manual) Monocytes # (Manual) Eosinophils # (Manual) Basophils # (Manual) PT INR APTT ABG pH ABG pO2 ABG HCO3 ABG O2 Saturation ABG Base Excess ABG Hemoglobin Oxyhemoglobin Sodium Potassium Chloride Carbon Dioxide BUN Creatinine Glucose POC Glucose 135 H 132 H 118 H Lactic Acid Calcium Ionized Calcium Phosphorus Magnesium Total Bilirubin AST ALT Alkaline Phosphatase Ammonia Total Creatine Kinase CK-MB (CK-2) CK-MB (CK-2) Rel Index Total Protein Albumin Urine WBC (Auto) Vancomycin Trough Salicylates Acetaminophen Plasma/Serum Alcohol Crossmatch 12/30/19 12/31/19 12/31/19 23:29 05:19 17:50 WBC RBC Hgb Hct MCH RDW Plt Count Lymph % (Auto) [place] % (Auto) [place] # Baso # Seg Neutrophils % Seg Neuts % (Manual) Lymphocytes % (Manual) Monocytes % (Manual) Seg Neutrophils # Seg Neutrophils # Man Lymphocytes # (Manual) Monocytes # (Manual) Eosinophils # (Manual) Basophils # (Manual) PT INR APTT ABG pH ABG pO2 ABG HCO3 ABG O2 Saturation ABG Base Excess ABG Hemoglobin Oxyhemoglobin Sodium Potassium Chloride Carbon Dioxide BUN Creatinine Glucose POC Glucose 114 H 109 H 116 H Lactic Acid Calcium Ionized Calcium Phosphorus Magnesium Total Bilirubin AST ALT Alkaline Phosphatase Ammonia Total Creatine Kinase CK-MB (CK-2) CK-MB (CK-2) Rel Index Total Protein Albumin Urine WBC (Auto) Vancomycin Trough Salicylates Acetaminophen Plasma/Serum Alcohol Crossmatch 01/01/20 01/01/20 01/01/20 00:10 05:19 12:02 WBC RBC Hgb Hct MCH RDW Plt Count Lymph % (Auto) [place] % (Auto) [place] # Baso # Seg Neutrophils % Seg Neuts % (Manual) Lymphocytes % (Manual) Monocytes % (Manual) Seg Neutrophils # Seg Neutrophils # Man Lymphocytes # (Manual) Monocytes # (Manual) Eosinophils # (Manual) Basophils # (Manual) PT INR APTT ABG pH ABG pO2 ABG HCO3 ABG O2 Saturation ABG Base Excess ABG Hemoglobin Oxyhemoglobin Sodium Potassium Chloride Carbon Dioxide BUN Creatinine Glucose POC Glucose 131 H 122 H 136 H Lactic Acid Calcium Ionized Calcium Phosphorus Magnesium Total Bilirubin AST ALT Alkaline Phosphatase Ammonia Total Creatine Kinase CK-MB (CK-2) CK-MB (CK-2) Rel Index Total Protein Albumin Urine WBC (Auto) Vancomycin Trough Salicylates Acetaminophen Plasma/Serum Alcohol Crossmatch 01/02/20 01/02/20 01/02/20 00:24 05:36 11:41 WBC RBC Hgb Hct MCH RDW Plt Count Lymph % (Auto) [place] % (Auto) [place] # Baso # Seg Neutrophils % Seg Neuts % (Manual) Lymphocytes % (Manual) Monocytes % (Manual) Seg Neutrophils # Seg Neutrophils # Man Lymphocytes # (Manual) Monocytes # (Manual) Eosinophils # (Manual) Basophils # (Manual) PT INR APTT ABG pH ABG pO2 ABG HCO3 ABG O2 Saturation ABG Base Excess ABG Hemoglobin Oxyhemoglobin Sodium Potassium Chloride Carbon Dioxide BUN Creatinine Glucose POC Glucose 119 H 109 H 125 H Lactic Acid Calcium Ionized Calcium Phosphorus Magnesium Total Bilirubin AST ALT Alkaline Phosphatase Ammonia Total Creatine Kinase CK-MB (CK-2) CK-MB (CK-2) Rel Index Total Protein Albumin Urine WBC (Auto) Vancomycin Trough Salicylates Acetaminophen Plasma/Serum Alcohol Crossmatch 01/02/20 01/03/20 01/03/20 17:49 05:29 12:13 WBC RBC Hgb Hct MCH RDW Plt Count Lymph % (Auto) [place] % (Auto) [place] # Baso # Seg Neutrophils % Seg Neuts % (Manual) Lymphocytes % (Manual) Monocytes % (Manual) Seg Neutrophils # Seg Neutrophils # Man Lymphocytes # (Manual) Monocytes # (Manual) Eosinophils # (Manual) Basophils # (Manual) PT INR APTT ABG pH ABG pO2 ABG HCO3 ABG O2 Saturation ABG Base Excess ABG Hemoglobin Oxyhemoglobin Sodium Potassium Chloride Carbon Dioxide BUN Creatinine Glucose POC Glucose 130 H 132 H 113 H Lactic Acid Calcium Ionized Calcium Phosphorus Magnesium Total Bilirubin AST ALT Alkaline Phosphatase Ammonia Total Creatine Kinase CK-MB (CK-2) CK-MB (CK-2) Rel Index Total Protein Albumin Urine WBC (Auto) Vancomycin Trough Salicylates Acetaminophen Plasma/Serum Alcohol Crossmatch 01/03/20 01/04/20 01/04/20 17:32 00:19 05:26 WBC RBC Hgb Hct MCH RDW Plt Count Lymph % (Auto) [place] % (Auto) [place] # Baso # Seg Neutrophils % Seg Neuts % (Manual) Lymphocytes % (Manual) Monocytes % (Manual) Seg Neutrophils # Seg Neutrophils # Man Lymphocytes # (Manual) Monocytes # (Manual) Eosinophils # (Manual) Basophils # (Manual) PT INR APTT ABG pH ABG pO2 ABG HCO3 ABG O2 Saturation ABG Base Excess ABG Hemoglobin Oxyhemoglobin Sodium Potassium Chloride Carbon Dioxide BUN Creatinine Glucose POC Glucose 127 H 141 H 129 H Lactic Acid Calcium Ionized Calcium Phosphorus Magnesium Total Bilirubin AST ALT Alkaline Phosphatase Ammonia Total Creatine Kinase CK-MB (CK-2) CK-MB (CK-2) Rel Index Total Protein Albumin Urine WBC (Auto) Vancomycin Trough Salicylates Acetaminophen Plasma/Serum Alcohol Crossmatch 01/04/20 01/04/20 01/05/20 11:39 17:29 05:22 WBC RBC Hgb Hct MCH RDW Plt Count Lymph % (Auto) [place] % (Auto) [place] # Baso # Seg Neutrophils % Seg Neuts % (Manual) Lymphocytes % (Manual) Monocytes % (Manual) Seg Neutrophils # Seg Neutrophils # Man Lymphocytes # (Manual) Monocytes # (Manual) Eosinophils # (Manual) Basophils # (Manual) PT INR APTT ABG pH ABG pO2 ABG HCO3 ABG O2 Saturation ABG Base Excess ABG Hemoglobin Oxyhemoglobin Sodium Potassium Chloride Carbon Dioxide BUN Creatinine Glucose POC Glucose 167 H 132 H 121 H Lactic Acid Calcium Ionized Calcium Phosphorus Magnesium Total Bilirubin AST ALT Alkaline Phosphatase Ammonia Total Creatine Kinase CK-MB (CK-2) CK-MB (CK-2) Rel Index Total Protein Albumin Urine WBC (Auto) Vancomycin Trough Salicylates Acetaminophen Plasma/Serum Alcohol Crossmatch 01/05/20 01/05/20 01/05/20 12:25 17:40 18:06 WBC RBC Hgb Hct MCH RDW Plt Count Lymph % (Auto) [place] % (Auto) [place] # Baso # Seg Neutrophils % Seg Neuts % (Manual) Lymphocytes % (Manual) Monocytes % (Manual) Seg Neutrophils # Seg Neutrophils # Man Lymphocytes # (Manual) Monocytes # (Manual) Eosinophils # (Manual) Basophils # (Manual) PT INR APTT ABG pH 7.472 H ABG pO2 99.2 H ABG HCO3 ABG O2 Saturation ABG Base Excess ABG Hemoglobin 7.8 L Oxyhemoglobin Sodium Potassium Chloride Carbon Dioxide BUN Creatinine Glucose POC Glucose 106 H 110 H Lactic Acid Calcium Ionized Calcium Phosphorus Magnesium Total Bilirubin AST ALT Alkaline Phosphatase Ammonia Total Creatine Kinase CK-MB (CK-2) CK-MB (CK-2) Rel Index Total Protein Albumin Urine WBC (Auto) Vancomycin Trough Salicylates Acetaminophen Plasma/Serum Alcohol Crossmatch 01/06/20 01/06/20 01/06/20 00:11 05:16 11:30 WBC RBC Hgb Hct MCH RDW Plt Count Lymph % (Auto) [place] % (Auto) [place] # Baso # Seg Neutrophils % Seg Neuts % (Manual) Lymphocytes % (Manual) Monocytes % (Manual) Seg Neutrophils # Seg Neutrophils # Man Lymphocytes # (Manual) Monocytes # (Manual) Eosinophils # (Manual) Basophils # (Manual) PT INR APTT ABG pH ABG pO2 ABG HCO3 ABG O2 Saturation ABG Base Excess ABG Hemoglobin Oxyhemoglobin Sodium Potassium Chloride Carbon Dioxide BUN Creatinine Glucose POC Glucose 108 H 124 H 125 H Lactic Acid Calcium Ionized Calcium Phosphorus Magnesium Total Bilirubin AST ALT Alkaline Phosphatase Ammonia Total Creatine Kinase CK-MB (CK-2) CK-MB (CK-2) Rel Index Total Protein Albumin Urine WBC (Auto) Vancomycin Trough Salicylates Acetaminophen Plasma/Serum Alcohol Crossmatch 01/06/20 01/06/20 01/07/20 17:53 23:51 04:12 WBC 16.5 H RBC 3.29 L Hgb 9.3 L Hct 28.1 L MCH RDW 18.2 H Plt Count 526 H Lymph % (Auto) 8.4 L [place] % (Auto) [place] # 1.0 H Baso # Seg Neutrophils % 84.4 H Seg Neuts % (Manual) Lymphocytes % (Manual) Monocytes % (Manual) Seg Neutrophils # 13.9 H Seg Neutrophils # Man Lymphocytes # (Manual) Monocytes # (Manual) Eosinophils # (Manual) Basophils # (Manual) PT INR APTT ABG pH ABG pO2 ABG HCO3 ABG O2 Saturation ABG Base Excess ABG Hemoglobin Oxyhemoglobin Sodium Potassium Chloride Carbon Dioxide BUN Creatinine Glucose POC Glucose 166 H 128 H Lactic Acid Calcium Ionized Calcium Phosphorus Magnesium Total Bilirubin AST ALT Alkaline Phosphatase Ammonia Total Creatine Kinase CK-MB (CK-2) CK-MB (CK-2) Rel Index Total Protein Albumin Urine WBC (Auto) Vancomycin Trough Salicylates Acetaminophen Plasma/Serum Alcohol Crossmatch 01/07/20 01/07/20 01/07/20 04:12 04:45 11:51 WBC RBC Hgb Hct MCH RDW Plt Count Lymph % (Auto) [place] % (Auto) [place] # Baso # Seg Neutrophils % Seg Neuts % (Manual) Lymphocytes % (Manual) Monocytes % (Manual) Seg Neutrophils # Seg Neutrophils # Man Lymphocytes # (Manual) Monocytes # (Manual) Eosinophils # (Manual) Basophils # (Manual) PT INR APTT ABG pH ABG pO2 ABG HCO3 ABG O2 Saturation ABG Base Excess ABG Hemoglobin Oxyhemoglobin Sodium 136 L Potassium Chloride Carbon Dioxide 21 L BUN 44 H Creatinine 0.6 L Glucose 124 H POC Glucose 134 H 138 H Lactic Acid Calcium Ionized Calcium Phosphorus Magnesium Total Bilirubin AST ALT Alkaline Phosphatase Ammonia Total Creatine Kinase CK-MB (CK-2) CK-MB (CK-2) Rel Index Total Protein Albumin Urine WBC (Auto) Vancomycin Trough Salicylates Acetaminophen Plasma/Serum Alcohol Crossmatch 01/07/20 01/08/20 01/08/20 17:36 00:33 05:29 WBC RBC Hgb Hct MCH RDW Plt Count Lymph % (Auto) [place] % (Auto) [place] # Baso # Seg Neutrophils % Seg Neuts % (Manual) Lymphocytes % (Manual) Monocytes % (Manual) Seg Neutrophils # Seg Neutrophils # Man Lymphocytes # (Manual) Monocytes # (Manual) Eosinophils # (Manual) Basophils # (Manual) PT INR APTT ABG pH ABG pO2 ABG HCO3 ABG O2 Saturation ABG Base Excess ABG Hemoglobin Oxyhemoglobin Sodium Potassium Chloride Carbon Dioxide BUN Creatinine Glucose POC Glucose 128 H 119 H 124 H Lactic Acid Calcium Ionized Calcium Phosphorus Magnesium Total Bilirubin AST ALT Alkaline Phosphatase Ammonia Total Creatine Kinase CK-MB (CK-2) CK-MB (CK-2) Rel Index Total Protein Albumin Urine WBC (Auto) Vancomycin Trough Salicylates Acetaminophen Plasma/Serum Alcohol Crossmatch 01/08/20 01/08/20 01/08/20 12:51 20:25 23:22 WBC RBC Hgb Hct MCH RDW Plt Count Lymph % (Auto) [place] % (Auto) [place] # Baso # Seg Neutrophils % Seg Neuts % (Manual) Lymphocytes % (Manual) Monocytes % (Manual) Seg Neutrophils # Seg Neutrophils # Man Lymphocytes # (Manual) Monocytes # (Manual) Eosinophils # (Manual) Basophils # (Manual) PT INR APTT ABG pH ABG pO2 132.2 H ABG HCO3 ABG O2 Saturation ABG Base Excess ABG Hemoglobin Oxyhemoglobin Sodium Potassium Chloride Carbon Dioxide BUN Creatinine Glucose POC Glucose 128 H 127 H Lactic Acid Calcium Ionized Calcium Phosphorus Magnesium Total Bilirubin AST ALT Alkaline Phosphatase Ammonia Total Creatine Kinase CK-MB (CK-2) CK-MB (CK-2) Rel Index Total Protein Albumin Urine WBC (Auto) Vancomycin Trough Salicylates Acetaminophen Plasma/Serum Alcohol Crossmatch 01/09/20 01/09/20 01/09/20 05:48 08:51 11:29 WBC RBC Hgb Hct MCH RDW Plt Count Lymph % (Auto) [place] % (Auto) [place] # Baso # Seg Neutrophils % Seg Neuts % (Manual) Lymphocytes % (Manual) Monocytes % (Manual) Seg Neutrophils # Seg Neutrophils # Man Lymphocytes # (Manual) Monocytes # (Manual) Eosinophils # (Manual) Basophils # (Manual) PT INR APTT ABG pH ABG pO2 94.3 H ABG HCO3 ABG O2 Saturation ABG Base Excess ABG Hemoglobin 9.5 L Oxyhemoglobin Sodium Potassium Chloride Carbon Dioxide BUN Creatinine Glucose POC Glucose 120 H 112 H Lactic Acid Calcium Ionized Calcium Phosphorus Magnesium Total Bilirubin AST ALT Alkaline Phosphatase Ammonia Total Creatine Kinase CK-MB (CK-2) CK-MB (CK-2) Rel Index Total Protein Albumin Urine WBC (Auto) Vancomycin Trough Salicylates Acetaminophen Plasma/Serum Alcohol Crossmatch 01/09/20 01/10/20 01/10/20 17:57 05:17 12:28 WBC RBC Hgb Hct MCH RDW Plt Count Lymph % (Auto) [place] % (Auto) [place] # Baso # Seg Neutrophils % Seg Neuts % (Manual) Lymphocytes % (Manual) Monocytes % (Manual) Seg Neutrophils # Seg Neutrophils # Man Lymphocytes # (Manual) Monocytes # (Manual) Eosinophils # (Manual) Basophils # (Manual) PT INR APTT ABG pH ABG pO2 ABG HCO3 ABG O2 Saturation ABG Base Excess ABG Hemoglobin Oxyhemoglobin Sodium Potassium Chloride Carbon Dioxide BUN Creatinine Glucose POC Glucose 122 H 115 H 116 H Lactic Acid Calcium Ionized Calcium Phosphorus Magnesium Total Bilirubin AST ALT Alkaline Phosphatase Ammonia Total Creatine Kinase CK-MB (CK-2) CK-MB (CK-2) Rel Index Total Protein Albumin Urine WBC (Auto) Vancomycin Trough Salicylates Acetaminophen Plasma/Serum Alcohol Crossmatch 01/10/20 01/10/20 01/11/20 18:25 23:47 06:05 WBC RBC Hgb Hct MCH RDW Plt Count Lymph % (Auto) [place] % (Auto) [place] # Baso # Seg Neutrophils % Seg Neuts % (Manual) Lymphocytes % (Manual) Monocytes % (Manual) Seg Neutrophils # Seg Neutrophils # Man Lymphocytes # (Manual) Monocytes # (Manual) Eosinophils # (Manual) Basophils # (Manual) PT INR APTT ABG pH ABG pO2 ABG HCO3 ABG O2 Saturation ABG Base Excess ABG Hemoglobin Oxyhemoglobin Sodium Potassium Chloride Carbon Dioxide BUN Creatinine Glucose POC Glucose 123 H 115 H 151 H Lactic Acid Calcium Ionized Calcium Phosphorus Magnesium Total Bilirubin AST ALT Alkaline Phosphatase Ammonia Total Creatine Kinase CK-MB (CK-2) CK-MB (CK-2) Rel Index Total Protein Albumin Urine WBC (Auto) Vancomycin Trough Salicylates Acetaminophen Plasma/Serum Alcohol Crossmatch 01/11/20 01/11/20 01/11/20 07:00 07:00 12:27 WBC 11.8 H RBC 3.40 L Hgb 9.4 L Hct 29.3 L MCH RDW 18.1 H Plt Count 549 H Lymph % (Auto) [place] % (Auto) 9.1 H [place] # 1.1 H Baso # Seg Neutrophils % 73.3 H Seg Neuts % (Manual) Lymphocytes % (Manual) Monocytes % (Manual) Seg Neutrophils # 8.7 H Seg Neutrophils # Man Lymphocytes # (Manual) Monocytes # (Manual) Eosinophils # (Manual) Basophils # (Manual) PT INR APTT ABG pH ABG pO2 ABG HCO3 ABG O2 Saturation ABG Base Excess ABG Hemoglobin Oxyhemoglobin Sodium 134 L Potassium Chloride 97.7 L Carbon Dioxide 21 L BUN 38 H Creatinine 0.5 L Glucose 168 H POC Glucose 117 H Lactic Acid Calcium 10.5 H Ionized Calcium Phosphorus Magnesium Total Bilirubin AST ALT Alkaline Phosphatase Ammonia Total Creatine Kinase CK-MB (CK-2) CK-MB (CK-2) Rel Index Total Protein Albumin Urine WBC (Auto) Vancomycin Trough Salicylates Acetaminophen Plasma/Serum Alcohol Crossmatch 01/11/20 01/12/20 01/12/20 18:19 00:53 05:24 WBC RBC Hgb Hct MCH RDW Plt Count Lymph % (Auto) [place] % (Auto) [place] # Baso # Seg Neutrophils % Seg Neuts % (Manual) Lymphocytes % (Manual) Monocytes % (Manual) Seg Neutrophils # Seg Neutrophils # Man Lymphocytes # (Manual) Monocytes # (Manual) Eosinophils # (Manual) Basophils # (Manual) PT INR APTT ABG pH ABG pO2 ABG HCO3 ABG O2 Saturation ABG Base Excess ABG Hemoglobin Oxyhemoglobin Sodium Potassium Chloride Carbon Dioxide BUN Creatinine Glucose POC Glucose 126 H 126 H 128 H Lactic Acid Calcium Ionized Calcium Phosphorus Magnesium Total Bilirubin AST ALT Alkaline Phosphatase Ammonia Total Creatine Kinase CK-MB (CK-2) CK-MB (CK-2) Rel Index Total Protein Albumin Urine WBC (Auto) Vancomycin Trough Salicylates Acetaminophen Plasma/Serum Alcohol Crossmatch 01/12/20 01/12/20 01/13/20 13:39 18:02 00:27 WBC RBC Hgb Hct MCH RDW Plt Count Lymph % (Auto) [place] % (Auto) [place] # Baso # Seg Neutrophils % Seg Neuts % (Manual) Lymphocytes % (Manual) Monocytes % (Manual) Seg Neutrophils # Seg Neutrophils # Man Lymphocytes # (Manual) Monocytes # (Manual) Eosinophils # (Manual) Basophils # (Manual) PT INR APTT ABG pH ABG pO2 ABG HCO3 ABG O2 Saturation ABG Base Excess ABG Hemoglobin Oxyhemoglobin Sodium Potassium Chloride Carbon Dioxide BUN Creatinine Glucose POC Glucose 146 H 125 H 131 H Lactic Acid Calcium Ionized Calcium Phosphorus Magnesium Total Bilirubin AST ALT Alkaline Phosphatase Ammonia Total Creatine Kinase CK-MB (CK-2) CK-MB (CK-2) Rel Index Total Protein Albumin Urine WBC (Auto) Vancomycin Trough Salicylates Acetaminophen Plasma/Serum Alcohol Crossmatch 01/13/20 01/13/20 01/13/20 05:44 11:54 17:18 WBC RBC Hgb Hct MCH RDW Plt Count Lymph % (Auto) [place] % (Auto) [place] # Baso # Seg Neutrophils % Seg Neuts % (Manual) Lymphocytes % (Manual) Monocytes % (Manual) Seg Neutrophils # Seg Neutrophils # Man Lymphocytes # (Manual) Monocytes # (Manual) Eosinophils # (Manual) Basophils # (Manual) PT INR APTT ABG pH ABG pO2 ABG HCO3 ABG O2 Saturation ABG Base Excess ABG Hemoglobin Oxyhemoglobin Sodium Potassium Chloride Carbon Dioxide BUN Creatinine Glucose POC Glucose 148 H 140 H 130 H Lactic Acid Calcium Ionized Calcium Phosphorus Magnesium Total Bilirubin AST ALT Alkaline Phosphatase Ammonia Total Creatine Kinase CK-MB (CK-2) CK-MB (CK-2) Rel Index Total Protein Albumin Urine WBC (Auto) Vancomycin Trough Salicylates Acetaminophen Plasma/Serum Alcohol Crossmatch 01/14/20 01/14/20 01/14/20 00:16 05:45 12:19 WBC RBC Hgb Hct MCH RDW Plt Count Lymph % (Auto) [place] % (Auto) [place] # Baso # Seg Neutrophils % Seg Neuts % (Manual) Lymphocytes % (Manual) Monocytes % (Manual) Seg Neutrophils # Seg Neutrophils # Man Lymphocytes # (Manual) Monocytes # (Manual) Eosinophils # (Manual) Basophils # (Manual) PT INR APTT ABG pH ABG pO2 ABG HCO3 ABG O2 Saturation ABG Base Excess ABG Hemoglobin Oxyhemoglobin Sodium Potassium Chloride Carbon Dioxide BUN Creatinine Glucose POC Glucose 125 H 146 H 147 H Lactic Acid Calcium Ionized Calcium Phosphorus Magnesium Total Bilirubin AST ALT Alkaline Phosphatase Ammonia Total Creatine Kinase CK-MB (CK-2) CK-MB (CK-2) Rel Index Total Protein Albumin Urine WBC (Auto) Vancomycin Trough Salicylates Acetaminophen Plasma/Serum Alcohol Crossmatch 01/14/20 01/14/20 01/15/20 18:10 23:54 05:14 WBC RBC Hgb Hct MCH RDW Plt Count Lymph % (Auto) [place] % (Auto) [place] # Baso # Seg Neutrophils % Seg Neuts % (Manual) Lymphocytes % (Manual) Monocytes % (Manual) Seg Neutrophils # Seg Neutrophils # Man Lymphocytes # (Manual) Monocytes # (Manual) Eosinophils # (Manual) Basophils # (Manual) PT INR APTT ABG pH ABG pO2 ABG HCO3 ABG O2 Saturation ABG Base Excess ABG Hemoglobin Oxyhemoglobin Sodium Potassium Chloride Carbon Dioxide BUN Creatinine Glucose POC Glucose 136 H 109 H 111 H Lactic Acid Calcium Ionized Calcium Phosphorus Magnesium Total Bilirubin AST ALT Alkaline Phosphatase Ammonia Total Creatine Kinase CK-MB (CK-2) CK-MB (CK-2) Rel Index Total Protein Albumin Urine WBC (Auto) Vancomycin Trough Salicylates Acetaminophen Plasma/Serum Alcohol Crossmatch 01/15/20 01/15/20 01/16/20 12:34 23:25 05:06 WBC RBC Hgb Hct MCH RDW Plt Count Lymph % (Auto) [place] % (Auto) [place] # Baso # Seg Neutrophils % Seg Neuts % (Manual) Lymphocytes % (Manual) Monocytes % (Manual) Seg Neutrophils # Seg Neutrophils # Man Lymphocytes # (Manual) Monocytes # (Manual) Eosinophils # (Manual) Basophils # (Manual) PT INR APTT ABG pH ABG pO2 ABG HCO3 ABG O2 Saturation ABG Base Excess ABG Hemoglobin Oxyhemoglobin Sodium Potassium Chloride Carbon Dioxide BUN Creatinine Glucose POC Glucose 131 H 120 H 121 H Lactic Acid Calcium Ionized Calcium Phosphorus Magnesium Total Bilirubin AST ALT Alkaline Phosphatase Ammonia Total Creatine Kinase CK-MB (CK-2) CK-MB (CK-2) Rel Index Total Protein Albumin Urine WBC (Auto) Vancomycin Trough Salicylates Acetaminophen Plasma/Serum Alcohol Crossmatch 01/16/20 01/16/20 01/17/20 12:15 23:46 05:32 WBC 13.6 H RBC 3.27 L Hgb 9.3 L Hct 28.5 L MCH RDW 17.0 H Plt Count 490 H Lymph % (Auto) 13.1 L [place] % (Auto) [place] # 1.0 H Baso # Seg Neutrophils % 77.5 H Seg Neuts % (Manual) Lymphocytes % (Manual) Monocytes % (Manual) Seg Neutrophils # 10.5 H Seg Neutrophils # Man Lymphocytes # (Manual) Monocytes # (Manual) Eosinophils # (Manual) Basophils # (Manual) PT INR APTT ABG pH ABG pO2 ABG HCO3 ABG O2 Saturation ABG Base Excess ABG Hemoglobin Oxyhemoglobin Sodium Potassium Chloride Carbon Dioxide BUN Creatinine Glucose POC Glucose 152 H 107 H Lactic Acid Calcium Ionized Calcium Phosphorus Magnesium Total Bilirubin AST ALT Alkaline Phosphatase Ammonia Total Creatine Kinase CK-MB (CK-2) CK-MB (CK-2) Rel Index Total Protein Albumin Urine WBC (Auto) Vancomycin Trough Salicylates Acetaminophen Plasma/Serum Alcohol Crossmatch 01/17/20 01/17/20 01/17/20 06:47 12:16 17:21 WBC RBC Hgb Hct MCH RDW Plt Count Lymph % (Auto) [place] % (Auto) [place] # Baso # Seg Neutrophils % Seg Neuts % (Manual) Lymphocytes % (Manual) Monocytes % (Manual) Seg Neutrophils # Seg Neutrophils # Man Lymphocytes # (Manual) Monocytes # (Manual) Eosinophils # (Manual) Basophils # (Manual) PT INR APTT ABG pH ABG pO2 ABG HCO3 ABG O2 Saturation ABG Base Excess ABG Hemoglobin Oxyhemoglobin Sodium Potassium Chloride Carbon Dioxide BUN Creatinine Glucose POC Glucose 112 H 145 H 150 H Lactic Acid Calcium Ionized Calcium Phosphorus Magnesium Total Bilirubin AST ALT Alkaline Phosphatase Ammonia Total Creatine Kinase CK-MB (CK-2) CK-MB (CK-2) Rel Index Total Protein Albumin Urine WBC (Auto) Vancomycin Trough Salicylates Acetaminophen Plasma/Serum Alcohol Crossmatch 01/17/20 01/18/20 01/18/20 23:34 05:47 12:43 WBC RBC Hgb Hct MCH RDW Plt Count Lymph % (Auto) [place] % (Auto) [place] # Baso # Seg Neutrophils % Seg Neuts % (Manual) Lymphocytes % (Manual) Monocytes % (Manual) Seg Neutrophils # Seg Neutrophils # Man Lymphocytes # (Manual) Monocytes # (Manual) Eosinophils # (Manual) Basophils # (Manual) PT INR APTT ABG pH ABG pO2 ABG HCO3 ABG O2 Saturation ABG Base Excess ABG Hemoglobin Oxyhemoglobin Sodium Potassium Chloride Carbon Dioxide BUN Creatinine Glucose POC Glucose 160 H 130 H 124 H Lactic Acid Calcium Ionized Calcium Phosphorus Magnesium Total Bilirubin AST ALT Alkaline Phosphatase Ammonia Total Creatine Kinase CK-MB (CK-2) CK-MB (CK-2) Rel Index Total Protein Albumin Urine WBC (Auto) Vancomycin Trough Salicylates Acetaminophen Plasma/Serum Alcohol Crossmatch 01/18/20 01/19/20 01/19/20 18:26 00:14 06:24 WBC RBC Hgb Hct MCH RDW Plt Count Lymph % (Auto) [place] % (Auto) [place] # Baso # Seg Neutrophils % Seg Neuts % (Manual) Lymphocytes % (Manual) Monocytes % (Manual) Seg Neutrophils # Seg Neutrophils # Man Lymphocytes # (Manual) Monocytes # (Manual) Eosinophils # (Manual) Basophils # (Manual) PT INR APTT ABG pH ABG pO2 ABG HCO3 ABG O2 Saturation ABG Base Excess ABG Hemoglobin Oxyhemoglobin Sodium Potassium Chloride Carbon Dioxide BUN Creatinine Glucose POC Glucose 119 H 114 H 144 H Lactic Acid Calcium Ionized Calcium Phosphorus Magnesium Total Bilirubin AST ALT Alkaline Phosphatase Ammonia Total Creatine Kinase CK-MB (CK-2) CK-MB (CK-2) Rel Index Total Protein Albumin Urine WBC (Auto) Vancomycin Trough Salicylates Acetaminophen Plasma/Serum Alcohol Crossmatch 01/19/20 01/19/20 01/20/20 12:24 17:50 12:06 WBC RBC Hgb Hct MCH RDW Plt Count Lymph % (Auto) [place] % (Auto) [place] # Baso # Seg Neutrophils % Seg Neuts % (Manual) Lymphocytes % (Manual) Monocytes % (Manual) Seg Neutrophils # Seg Neutrophils # Man Lymphocytes # (Manual) Monocytes # (Manual) Eosinophils # (Manual) Basophils # (Manual) PT INR APTT ABG pH ABG pO2 ABG HCO3 ABG O2 Saturation ABG Base Excess ABG Hemoglobin Oxyhemoglobin Sodium Potassium Chloride Carbon Dioxide BUN Creatinine Glucose POC Glucose 132 H 144 H 135 H Lactic Acid Calcium Ionized Calcium Phosphorus Magnesium Total Bilirubin AST ALT Alkaline Phosphatase Ammonia Total Creatine Kinase CK-MB (CK-2) CK-MB (CK-2) Rel Index Total Protein Albumin Urine WBC (Auto) Vancomycin Trough Salicylates Acetaminophen Plasma/Serum Alcohol Crossmatch 01/21/20 01/21/20 01/21/20 05:46 13:02 23:49 WBC RBC Hgb Hct MCH RDW Plt Count Lymph % (Auto) [place] % (Auto) [place] # Baso # Seg Neutrophils % Seg Neuts % (Manual) Lymphocytes % (Manual) Monocytes % (Manual) Seg Neutrophils # Seg Neutrophils # Man Lymphocytes # (Manual) Monocytes # (Manual) Eosinophils # (Manual) Basophils # (Manual) PT INR APTT ABG pH ABG pO2 ABG HCO3 ABG O2 Saturation ABG Base Excess ABG Hemoglobin Oxyhemoglobin Sodium Potassium Chloride Carbon Dioxide BUN Creatinine Glucose POC Glucose 114 H 136 H 120 H Lactic Acid Calcium Ionized Calcium Phosphorus Magnesium Total Bilirubin AST ALT Alkaline Phosphatase Ammonia Total Creatine Kinase CK-MB (CK-2) CK-MB (CK-2) Rel Index Total Protein Albumin Urine WBC (Auto) Vancomycin Trough Salicylates Acetaminophen Plasma/Serum Alcohol Crossmatch 01/22/20 01/22/20 01/22/20 05:41 11:44 16:31 WBC RBC Hgb Hct MCH RDW Plt Count Lymph % (Auto) [place] % (Auto) [place] # Baso # Seg Neutrophils % Seg Neuts % (Manual) Lymphocytes % (Manual) Monocytes % (Manual) Seg Neutrophils # Seg Neutrophils # Man Lymphocytes # (Manual) Monocytes # (Manual) Eosinophils # (Manual) Basophils # (Manual) PT INR APTT ABG pH ABG pO2 ABG HCO3 ABG O2 Saturation ABG Base Excess ABG Hemoglobin Oxyhemoglobin Sodium Potassium Chloride Carbon Dioxide BUN Creatinine Glucose POC Glucose 124 H 173 H 111 H Lactic Acid Calcium Ionized Calcium Phosphorus Magnesium Total Bilirubin AST ALT Alkaline Phosphatase Ammonia Total Creatine Kinase CK-MB (CK-2) CK-MB (CK-2) Rel Index Total Protein Albumin Urine WBC (Auto) Vancomycin Trough Salicylates Acetaminophen Plasma/Serum Alcohol Crossmatch 01/22/20 01/23/20 01/23/20 23:25 05:15 12:15 WBC RBC Hgb Hct MCH RDW Plt Count Lymph % (Auto) [place] % (Auto) [place] # Baso # Seg Neutrophils % Seg Neuts % (Manual) Lymphocytes % (Manual) Monocytes % (Manual) Seg Neutrophils # Seg Neutrophils # Man Lymphocytes # (Manual) Monocytes # (Manual) Eosinophils # (Manual) Basophils # (Manual) PT INR APTT ABG pH ABG pO2 ABG HCO3 ABG O2 Saturation ABG Base Excess ABG Hemoglobin Oxyhemoglobin Sodium Potassium Chloride Carbon Dioxide BUN Creatinine Glucose POC Glucose 134 H 117 H 129 H Lactic Acid Calcium Ionized Calcium Phosphorus Magnesium Total Bilirubin AST ALT Alkaline Phosphatase Ammonia Total Creatine Kinase CK-MB (CK-2) CK-MB (CK-2) Rel Index Total Protein Albumin Urine WBC (Auto) Vancomycin Trough Salicylates Acetaminophen Plasma/Serum Alcohol Crossmatch 01/23/20 01/23/20 01/23/20 16:58 21:17 23:47 WBC RBC Hgb Hct MCH RDW Plt Count Lymph % (Auto) [place] % (Auto) [place] # Baso # Seg Neutrophils % Seg Neuts % (Manual) Lymphocytes % (Manual) Monocytes % (Manual) Seg Neutrophils # Seg Neutrophils # Man Lymphocytes # (Manual) Monocytes # (Manual) Eosinophils # (Manual) Basophils # (Manual) PT INR APTT ABG pH ABG pO2 ABG HCO3 ABG O2 Saturation ABG Base Excess ABG Hemoglobin Oxyhemoglobin Sodium Potassium Chloride Carbon Dioxide BUN Creatinine Glucose POC Glucose 156 H 185 H 156 H Lactic Acid Calcium Ionized Calcium Phosphorus Magnesium Total Bilirubin AST ALT Alkaline Phosphatase Ammonia Total Creatine Kinase CK-MB (CK-2) CK-MB (CK-2) Rel Index Total Protein Albumin Urine WBC (Auto) Vancomycin Trough Salicylates Acetaminophen Plasma/Serum Alcohol Crossmatch 01/24/20 01/24/20 01/24/20 04:47 04:47 05:59 WBC 17.8 H RBC 3.60 L Hgb Hct MCH RDW 16.2 H Plt Count 688 H Lymph % (Auto) 11.8 L [place] % (Auto) 7.5 H [place] # 1.3 H Baso # Seg Neutrophils % 79.9 H Seg Neuts % (Manual) Lymphocytes % (Manual) Monocytes % (Manual) Seg Neutrophils # 14.2 H Seg Neutrophils # Man Lymphocytes # (Manual) Monocytes # (Manual) Eosinophils # (Manual) Basophils # (Manual) PT INR APTT ABG pH ABG pO2 ABG HCO3 ABG O2 Saturation ABG Base Excess ABG Hemoglobin Oxyhemoglobin Sodium 131 L Potassium Chloride 91.2 L Carbon Dioxide BUN 22 H Creatinine 0.3 L Glucose 123 H POC Glucose 147 H Lactic Acid Calcium 10.9 H Ionized Calcium Phosphorus Magnesium Total Bilirubin AST ALT Alkaline Phosphatase Ammonia Total Creatine Kinase CK-MB (CK-2) CK-MB (CK-2) Rel Index Total Protein Albumin Urine WBC (Auto) Vancomycin Trough Salicylates Acetaminophen Plasma/Serum Alcohol Crossmatch 01/24/20 01/24/20 01/25/20 11:47 16:45 00:18 WBC RBC Hgb Hct MCH RDW Plt Count Lymph % (Auto) [place] % (Auto) [place] # Baso # Seg Neutrophils % Seg Neuts % (Manual) Lymphocytes % (Manual) Monocytes % (Manual) Seg Neutrophils # Seg Neutrophils # Man Lymphocytes # (Manual) Monocytes # (Manual) Eosinophils # (Manual) Basophils # (Manual) PT INR APTT ABG pH ABG pO2 ABG HCO3 ABG O2 Saturation ABG Base Excess ABG Hemoglobin Oxyhemoglobin Sodium Potassium Chloride Carbon Dioxide BUN Creatinine Glucose POC Glucose 114 H 108 H 119 H Lactic Acid Calcium Ionized Calcium Phosphorus Magnesium Total Bilirubin AST ALT Alkaline Phosphatase Ammonia Total Creatine Kinase CK-MB (CK-2) CK-MB (CK-2) Rel Index Total Protein Albumin Urine WBC (Auto) Vancomycin Trough Salicylates Acetaminophen Plasma/Serum Alcohol Crossmatch 01/25/20 01/25/20 01/25/20 07:18 11:58 16:56 WBC RBC Hgb Hct MCH RDW Plt Count Lymph % (Auto) [place] % (Auto) [place] # Baso # Seg Neutrophils % Seg Neuts % (Manual) Lymphocytes % (Manual) Monocytes % (Manual) Seg Neutrophils # Seg Neutrophils # Man Lymphocytes # (Manual) Monocytes # (Manual) Eosinophils # (Manual) Basophils # (Manual) PT INR APTT ABG pH ABG pO2 ABG HCO3 ABG O2 Saturation ABG Base Excess ABG Hemoglobin Oxyhemoglobin Sodium Potassium Chloride Carbon Dioxide BUN Creatinine Glucose POC Glucose 136 H 136 H 147 H Lactic Acid Calcium Ionized Calcium Phosphorus Magnesium Total Bilirubin AST ALT Alkaline Phosphatase Ammonia Total Creatine Kinase CK-MB (CK-2) CK-MB (CK-2) Rel Index Total Protein Albumin Urine WBC (Auto) Vancomycin Trough Salicylates Acetaminophen Plasma/Serum Alcohol Crossmatch 01/26/20 01/26/20 01/26/20 00:29 05:59 05:59 WBC 12.8 H RBC Hgb Hct MCH RDW 16.4 H Plt Count 743 H Lymph % (Auto) [place] % (Auto) [place] # 0.9 H Baso # Seg Neutrophils % 76.2 H Seg Neuts % (Manual) Lymphocytes % (Manual) Monocytes % (Manual) Seg Neutrophils # 9.8 H Seg Neutrophils # Man Lymphocytes # (Manual) Monocytes # (Manual) Eosinophils # (Manual) Basophils # (Manual) PT INR APTT ABG pH ABG pO2 ABG HCO3 ABG O2 Saturation ABG Base Excess ABG Hemoglobin Oxyhemoglobin Sodium 132 L Potassium Chloride 90.9 L Carbon Dioxide BUN 23 H Creatinine 0.4 L Glucose 122 H POC Glucose 107 H Lactic Acid Calcium 11.0 H Ionized Calcium Phosphorus Magnesium Total Bilirubin AST ALT Alkaline Phosphatase Ammonia Total Creatine Kinase CK-MB (CK-2) CK-MB (CK-2) Rel Index Total Protein Albumin Urine WBC (Auto) Vancomycin Trough Salicylates Acetaminophen Plasma/Serum Alcohol Crossmatch 01/26/20 01/26/20 01/26/20 06:27 12:06 16:49 WBC RBC Hgb Hct MCH RDW Plt Count Lymph % (Auto) [place] % (Auto) [place] # Baso # Seg Neutrophils % Seg Neuts % (Manual) Lymphocytes % (Manual) Monocytes % (Manual) Seg Neutrophils # Seg Neutrophils # Man Lymphocytes # (Manual) Monocytes # (Manual) Eosinophils # (Manual) Basophils # (Manual) PT INR APTT ABG pH ABG pO2 ABG HCO3 ABG O2 Saturation ABG Base Excess ABG Hemoglobin Oxyhemoglobin Sodium Potassium Chloride Carbon Dioxide BUN Creatinine Glucose POC Glucose 132 H 132 H 110 H Lactic Acid Calcium Ionized Calcium Phosphorus Magnesium Total Bilirubin AST ALT Alkaline Phosphatase Ammonia Total Creatine Kinase CK-MB (CK-2) CK-MB (CK-2) Rel Index Total Protein Albumin Urine WBC (Auto) Vancomycin Trough Salicylates Acetaminophen Plasma/Serum Alcohol Crossmatch 01/27/20 01/27/20 01/27/20 00:08 11:49 16:24 WBC RBC Hgb Hct MCH RDW Plt Count Lymph % (Auto) [place] % (Auto) [place] # Baso # Seg Neutrophils % Seg Neuts % (Manual) Lymphocytes % (Manual) Monocytes % (Manual) Seg Neutrophils # Seg Neutrophils # Man Lymphocytes # (Manual) Monocytes # (Manual) Eosinophils # (Manual) Basophils # (Manual) PT INR APTT ABG pH ABG pO2 ABG HCO3 ABG O2 Saturation ABG Base Excess ABG Hemoglobin Oxyhemoglobin Sodium Potassium Chloride Carbon Dioxide BUN Creatinine Glucose POC Glucose 107 H 119 H 129 H Lactic Acid Calcium Ionized Calcium Phosphorus Magnesium Total Bilirubin AST ALT Alkaline Phosphatase Ammonia Total Creatine Kinase CK-MB (CK-2) CK-MB (CK-2) Rel Index Total Protein Albumin Urine WBC (Auto) Vancomycin Trough Salicylates Acetaminophen Plasma/Serum Alcohol Crossmatch 01/27/20 01/28/20 01/28/20 18:28 01:00 06:22 WBC RBC Hgb Hct MCH RDW Plt Count Lymph % (Auto) [place] % (Auto) [place] # Baso # Seg Neutrophils % Seg Neuts % (Manual) Lymphocytes % (Manual) Monocytes % (Manual) Seg Neutrophils # Seg Neutrophils # Man Lymphocytes # (Manual) Monocytes # (Manual) Eosinophils # (Manual) Basophils # (Manual) PT INR APTT ABG pH ABG pO2 ABG HCO3 ABG O2 Saturation ABG Base Excess ABG Hemoglobin Oxyhemoglobin Sodium Potassium Chloride Carbon Dioxide BUN Creatinine Glucose POC Glucose 126 H 121 H 114 H Lactic Acid Calcium Ionized Calcium Phosphorus Magnesium Total Bilirubin AST ALT Alkaline Phosphatase Ammonia Total Creatine Kinase CK-MB (CK-2) CK-MB (CK-2) Rel Index Total Protein Albumin Urine WBC (Auto) Vancomycin Trough Salicylates Acetaminophen Plasma/Serum Alcohol Crossmatch 01/28/20 01/28/20 01/29/20 11:47 18:00 00:05 WBC RBC Hgb Hct MCH RDW Plt Count Lymph % (Auto) [place] % (Auto) [place] # Baso # Seg Neutrophils % Seg Neuts % (Manual) Lymphocytes % (Manual) Monocytes % (Manual) Seg Neutrophils # Seg Neutrophils # Man Lymphocytes # (Manual) Monocytes # (Manual) Eosinophils # (Manual) Basophils # (Manual) PT INR APTT ABG pH ABG pO2 ABG HCO3 ABG O2 Saturation ABG Base Excess ABG Hemoglobin Oxyhemoglobin Sodium Potassium Chloride Carbon Dioxide BUN Creatinine Glucose POC Glucose 106 H 117 H 127 H Lactic Acid Calcium Ionized Calcium Phosphorus Magnesium Total Bilirubin AST ALT Alkaline Phosphatase Ammonia Total Creatine Kinase CK-MB (CK-2) CK-MB (CK-2) Rel Index Total Protein Albumin Urine WBC (Auto) Vancomycin Trough Salicylates Acetaminophen Plasma/Serum Alcohol Crossmatch 01/29/20 01/29/20 01/29/20 06:04 11:40 16:38 WBC RBC Hgb Hct MCH RDW Plt Count Lymph % (Auto) [place] % (Auto) [place] # Baso # Seg Neutrophils % Seg Neuts % (Manual) Lymphocytes % (Manual) Monocytes % (Manual) Seg Neutrophils # Seg Neutrophils # Man Lymphocytes # (Manual) Monocytes # (Manual) Eosinophils # (Manual) Basophils # (Manual) PT INR APTT ABG pH ABG pO2 ABG HCO3 ABG O2 Saturation ABG Base Excess ABG Hemoglobin Oxyhemoglobin Sodium Potassium Chloride Carbon Dioxide BUN Creatinine Glucose POC Glucose 147 H 139 H 143 H Lactic Acid Calcium Ionized Calcium Phosphorus Magnesium Total Bilirubin AST ALT Alkaline Phosphatase Ammonia Total Creatine Kinase CK-MB (CK-2) CK-MB (CK-2) Rel Index Total Protein Albumin Urine WBC (Auto) Vancomycin Trough Salicylates Acetaminophen Plasma/Serum Alcohol Crossmatch 01/29/20 01/30/20 01/30/20 23:46 06:43 12:07 WBC RBC Hgb Hct MCH RDW Plt Count Lymph % (Auto) [place] % (Auto) [place] # Baso # Seg Neutrophils % Seg Neuts % (Manual) Lymphocytes % (Manual) Monocytes % (Manual) Seg Neutrophils # Seg Neutrophils # Man Lymphocytes # (Manual) Monocytes # (Manual) Eosinophils # (Manual) Basophils # (Manual) PT INR APTT ABG pH ABG pO2 ABG HCO3 ABG O2 Saturation ABG Base Excess ABG Hemoglobin Oxyhemoglobin Sodium Potassium Chloride Carbon Dioxide BUN Creatinine Glucose POC Glucose 122 H 122 H 134 H Lactic Acid Calcium Ionized Calcium Phosphorus Magnesium Total Bilirubin AST ALT Alkaline Phosphatase Ammonia Total Creatine Kinase CK-MB (CK-2) CK-MB (CK-2) Rel Index Total Protein Albumin Urine WBC (Auto) Vancomycin Trough Salicylates Acetaminophen Plasma/Serum Alcohol Crossmatch 01/30/20 01/31/20 01/31/20 17:59 00:52 05:54 WBC RBC Hgb Hct MCH RDW Plt Count Lymph % (Auto) [place] % (Auto) [place] # Baso # Seg Neutrophils % Seg Neuts % (Manual) Lymphocytes % (Manual) Monocytes % (Manual) Seg Neutrophils # Seg Neutrophils # Man Lymphocytes # (Manual) Monocytes # (Manual) Eosinophils # (Manual) Basophils # (Manual) PT INR APTT ABG pH ABG pO2 ABG HCO3 ABG O2 Saturation ABG Base Excess ABG Hemoglobin Oxyhemoglobin Sodium Potassium Chloride Carbon Dioxide BUN Creatinine Glucose POC Glucose 116 H 127 H 127 H Lactic Acid Calcium Ionized Calcium Phosphorus Magnesium Total Bilirubin AST ALT Alkaline Phosphatase Ammonia Total Creatine Kinase CK-MB (CK-2) CK-MB (CK-2) Rel Index Total Protein Albumin Urine WBC (Auto) Vancomycin Trough Salicylates Acetaminophen Plasma/Serum Alcohol Crossmatch 01/31/20 02/01/20 02/01/20 12:20 00:48 12:21 WBC RBC Hgb Hct MCH RDW Plt Count Lymph % (Auto) [place] % (Auto) [place] # Baso # Seg Neutrophils % Seg Neuts % (Manual) Lymphocytes % (Manual) Monocytes % (Manual) Seg Neutrophils # Seg Neutrophils # Man Lymphocytes # (Manual) Monocytes # (Manual) Eosinophils # (Manual) Basophils # (Manual) PT INR APTT ABG pH ABG pO2 ABG HCO3 ABG O2 Saturation ABG Base Excess ABG Hemoglobin Oxyhemoglobin Sodium Potassium Chloride Carbon Dioxide BUN Creatinine Glucose POC Glucose 126 H 154 H 123 H Lactic Acid Calcium Ionized Calcium Phosphorus Magnesium Total Bilirubin AST ALT Alkaline Phosphatase Ammonia Total Creatine Kinase CK-MB (CK-2) CK-MB (CK-2) Rel Index Total Protein Albumin Urine WBC (Auto) Vancomycin Trough Salicylates Acetaminophen Plasma/Serum Alcohol Crossmatch 02/01/20 02/02/20 02/02/20 23:58 06:08 11:50 WBC RBC Hgb Hct MCH RDW Plt Count Lymph % (Auto) [place] % (Auto) [place] # Baso # Seg Neutrophils % Seg Neuts % (Manual) Lymphocytes % (Manual) Monocytes % (Manual) Seg Neutrophils # Seg Neutrophils # Man Lymphocytes # (Manual) Monocytes # (Manual) Eosinophils # (Manual) Basophils # (Manual) PT INR APTT ABG pH ABG pO2 ABG HCO3 ABG O2 Saturation ABG Base Excess ABG Hemoglobin Oxyhemoglobin Sodium Potassium Chloride Carbon Dioxide BUN Creatinine Glucose POC Glucose 125 H 144 H 131 H Lactic Acid Calcium Ionized Calcium Phosphorus Magnesium Total Bilirubin AST ALT Alkaline Phosphatase Ammonia Total Creatine Kinase CK-MB (CK-2) CK-MB (CK-2) Rel Index Total Protein Albumin Urine WBC (Auto) Vancomycin Trough Salicylates Acetaminophen Plasma/Serum Alcohol Crossmatch 02/02/20 02/03/20 02/03/20 17:53 00:14 05:47 WBC RBC Hgb Hct MCH RDW Plt Count Lymph % (Auto) [place] % (Auto) [place] # Baso # Seg Neutrophils % Seg Neuts % (Manual) Lymphocytes % (Manual) Monocytes % (Manual) Seg Neutrophils # Seg Neutrophils # Man Lymphocytes # (Manual) Monocytes # (Manual) Eosinophils # (Manual) Basophils # (Manual) PT INR APTT ABG pH ABG pO2 ABG HCO3 ABG O2 Saturation ABG Base Excess ABG Hemoglobin Oxyhemoglobin Sodium Potassium Chloride Carbon Dioxide BUN Creatinine Glucose POC Glucose 108 H 122 H 118 H Lactic Acid Calcium Ionized Calcium Phosphorus Magnesium Total Bilirubin AST ALT Alkaline Phosphatase Ammonia Total Creatine Kinase CK-MB (CK-2) CK-MB (CK-2) Rel Index Total Protein Albumin Urine WBC (Auto) Vancomycin Trough Salicylates Acetaminophen Plasma/Serum Alcohol Crossmatch 02/03/20 02/03/20 02/03/20 05:59 05:59 11:49 WBC RBC 3.48 L Hgb Hct 29.9 L MCH RDW 16.2 H Plt Count 707 H Lymph % (Auto) [place] % (Auto) 9.3 H [place] # 0.9 H Baso # Seg Neutrophils % Seg Neuts % (Manual) Lymphocytes % (Manual) Monocytes % (Manual) Seg Neutrophils # Seg Neutrophils # Man Lymphocytes # (Manual) Monocytes # (Manual) Eosinophils # (Manual) Basophils # (Manual) PT INR APTT ABG pH ABG pO2 ABG HCO3 ABG O2 Saturation ABG Base Excess ABG Hemoglobin Oxyhemoglobin Sodium 136 L Potassium Chloride 93.4 L Carbon Dioxide BUN 20 H Creatinine 0.5 L Glucose 101 H POC Glucose 133 H Lactic Acid Calcium 10.8 H Ionized Calcium Phosphorus Magnesium Total Bilirubin AST ALT Alkaline Phosphatase Ammonia Total Creatine Kinase CK-MB (CK-2) CK-MB (CK-2) Rel Index Total Protein Albumin Urine WBC (Auto) Vancomycin Trough Salicylates Acetaminophen Plasma/Serum Alcohol Crossmatch 02/03/20 02/04/20 02/04/20 23:19 05:37 23:56 WBC RBC Hgb Hct MCH RDW Plt Count Lymph % (Auto) [place] % (Auto) [place] # Baso # Seg Neutrophils % Seg Neuts % (Manual) Lymphocytes % (Manual) Monocytes % (Manual) Seg Neutrophils # Seg Neutrophils # Man Lymphocytes # (Manual) Monocytes # (Manual) Eosinophils # (Manual) Basophils # (Manual) PT INR APTT ABG pH ABG pO2 ABG HCO3 ABG O2 Saturation ABG Base Excess ABG Hemoglobin Oxyhemoglobin Sodium Potassium Chloride Carbon Dioxide BUN Creatinine Glucose POC Glucose 135 H 108 H 158 H Lactic Acid Calcium Ionized Calcium Phosphorus Magnesium Total Bilirubin AST ALT Alkaline Phosphatase Ammonia Total Creatine Kinase CK-MB (CK-2) CK-MB (CK-2) Rel Index Total Protein Albumin Urine WBC (Auto) Vancomycin Trough Salicylates Acetaminophen Plasma/Serum Alcohol Crossmatch 02/05/20 02/05/20 02/06/20 05:33 23:24 05:50 WBC RBC Hgb Hct MCH RDW Plt Count Lymph % (Auto) [place] % (Auto) [place] # Baso # Seg Neutrophils % Seg Neuts % (Manual) Lymphocytes % (Manual) Monocytes % (Manual) Seg Neutrophils # Seg Neutrophils # Man Lymphocytes # (Manual) Monocytes # (Manual) Eosinophils # (Manual) Basophils # (Manual) PT INR APTT ABG pH ABG pO2 ABG HCO3 ABG O2 Saturation ABG Base Excess ABG Hemoglobin Oxyhemoglobin Sodium Potassium Chloride Carbon Dioxide BUN Creatinine Glucose POC Glucose 152 H 158 H 110 H Lactic Acid Calcium Ionized Calcium Phosphorus Magnesium Total Bilirubin AST ALT Alkaline Phosphatase Ammonia Total Creatine Kinase CK-MB (CK-2) CK-MB (CK-2) Rel Index Total Protein Albumin Urine WBC (Auto) Vancomycin Trough Salicylates Acetaminophen Plasma/Serum Alcohol Crossmatch 02/06/20 02/07/20 02/07/20 16:03 00:13 05:27 WBC RBC Hgb Hct MCH RDW Plt Count Lymph % (Auto) [place] % (Auto) [place] # Baso # Seg Neutrophils % Seg Neuts % (Manual) Lymphocytes % (Manual) Monocytes % (Manual) Seg Neutrophils # Seg Neutrophils # Man Lymphocytes # (Manual) Monocytes # (Manual) Eosinophils # (Manual) Basophils # (Manual) PT INR APTT ABG pH ABG pO2 ABG HCO3 ABG O2 Saturation ABG Base Excess ABG Hemoglobin Oxyhemoglobin Sodium Potassium Chloride Carbon Dioxide BUN Creatinine Glucose POC Glucose 130 H 115 H 115 H Lactic Acid Calcium Ionized Calcium Phosphorus Magnesium Total Bilirubin AST ALT Alkaline Phosphatase Ammonia Total Creatine Kinase CK-MB (CK-2) CK-MB (CK-2) Rel Index Total Protein Albumin Urine WBC (Auto) Vancomycin Trough Salicylates Acetaminophen Plasma/Serum Alcohol Crossmatch 02/07/20 02/07/20 02/08/20 11:42 17:23 00:37 WBC RBC Hgb Hct MCH RDW Plt Count Lymph % (Auto) [place] % (Auto) [place] # Baso # Seg Neutrophils % Seg Neuts % (Manual) Lymphocytes % (Manual) Monocytes % (Manual) Seg Neutrophils # Seg Neutrophils # Man Lymphocytes # (Manual) Monocytes # (Manual) Eosinophils # (Manual) Basophils # (Manual) PT INR APTT ABG pH ABG pO2 ABG HCO3 ABG O2 Saturation ABG Base Excess ABG Hemoglobin Oxyhemoglobin Sodium Potassium Chloride Carbon Dioxide BUN Creatinine Glucose POC Glucose 113 H 114 H 136 H Lactic Acid Calcium Ionized Calcium Phosphorus Magnesium Total Bilirubin AST ALT Alkaline Phosphatase Ammonia Total Creatine Kinase CK-MB (CK-2) CK-MB (CK-2) Rel Index Total Protein Albumin Urine WBC (Auto) Vancomycin Trough Salicylates Acetaminophen Plasma/Serum Alcohol Crossmatch 02/08/20 02/08/20 02/08/20 08:52 11:42 17:02 WBC RBC Hgb Hct MCH RDW Plt Count Lymph % (Auto) [place] % (Auto) [place] # Baso # Seg Neutrophils % Seg Neuts % (Manual) Lymphocytes % (Manual) Monocytes % (Manual) Seg Neutrophils # Seg Neutrophils # Man Lymphocytes # (Manual) Monocytes # (Manual) Eosinophils # (Manual) Basophils # (Manual) PT INR APTT ABG pH ABG pO2 ABG HCO3 ABG O2 Saturation ABG Base Excess ABG Hemoglobin Oxyhemoglobin Sodium 136 L Potassium Chloride 95.7 L Carbon Dioxide BUN 21 H Creatinine 0.4 L Glucose POC Glucose 128 H 145 H Lactic Acid Calcium 10.4 H Ionized Calcium Phosphorus Magnesium Total Bilirubin AST ALT Alkaline Phosphatase Ammonia Total Creatine Kinase CK-MB (CK-2) CK-MB (CK-2) Rel Index Total Protein Albumin Urine WBC (Auto) Vancomycin Trough Salicylates Acetaminophen Plasma/Serum Alcohol Crossmatch 02/09/20 02/09/20 02/09/20 01:05 11:52 16:19 WBC RBC Hgb Hct MCH RDW Plt Count Lymph % (Auto) [place] % (Auto) [place] # Baso # Seg Neutrophils % Seg Neuts % (Manual) Lymphocytes % (Manual) Monocytes % (Manual) Seg Neutrophils # Seg Neutrophils # Man Lymphocytes # (Manual) Monocytes # (Manual) Eosinophils # (Manual) Basophils # (Manual) PT INR APTT ABG pH ABG pO2 ABG HCO3 ABG O2 Saturation ABG Base Excess ABG Hemoglobin Oxyhemoglobin Sodium Potassium Chloride Carbon Dioxide BUN Creatinine Glucose POC Glucose 117 H 141 H 113 H Lactic Acid Calcium Ionized Calcium Phosphorus Magnesium Total Bilirubin AST ALT Alkaline Phosphatase Ammonia Total Creatine Kinase CK-MB (CK-2) CK-MB (CK-2) Rel Index Total Protein Albumin Urine WBC (Auto) Vancomycin Trough Salicylates Acetaminophen Plasma/Serum Alcohol Crossmatch 02/10/20 02/10/20 02/10/20 05:25 12:50 17:08 WBC RBC Hgb Hct MCH RDW Plt Count Lymph % (Auto) [place] % (Auto) [place] # Baso # Seg Neutrophils % Seg Neuts % (Manual) Lymphocytes % (Manual) Monocytes % (Manual) Seg Neutrophils # Seg Neutrophils # Man Lymphocytes # (Manual) Monocytes # (Manual) Eosinophils # (Manual) Basophils # (Manual) PT INR APTT ABG pH ABG pO2 ABG HCO3 ABG O2 Saturation ABG Base Excess ABG Hemoglobin Oxyhemoglobin Sodium Potassium Chloride Carbon Dioxide BUN Creatinine Glucose POC Glucose 136 H 127 H 111 H Lactic Acid Calcium Ionized Calcium Phosphorus Magnesium Total Bilirubin AST ALT Alkaline Phosphatase Ammonia Total Creatine Kinase CK-MB (CK-2) CK-MB (CK-2) Rel Index Total Protein Albumin Urine WBC (Auto) Vancomycin Trough Salicylates Acetaminophen Plasma/Serum Alcohol Crossmatch 02/10/20 02/11/20 02/11/20 23:55 06:11 12:07 WBC RBC Hgb Hct MCH RDW Plt Count Lymph % (Auto) [place] % (Auto) [place] # Baso # Seg Neutrophils % Seg Neuts % (Manual) Lymphocytes % (Manual) Monocytes % (Manual) Seg Neutrophils # Seg Neutrophils # Man Lymphocytes # (Manual) Monocytes # (Manual) Eosinophils # (Manual) Basophils # (Manual) PT INR APTT ABG pH ABG pO2 ABG HCO3 ABG O2 Saturation ABG Base Excess ABG Hemoglobin Oxyhemoglobin Sodium Potassium Chloride Carbon Dioxide BUN Creatinine Glucose POC Glucose 129 H 128 H 141 H Lactic Acid Calcium Ionized Calcium Phosphorus Magnesium Total Bilirubin AST ALT Alkaline Phosphatase Ammonia Total Creatine Kinase CK-MB (CK-2) CK-MB (CK-2) Rel Index Total Protein Albumin Urine WBC (Auto) Vancomycin Trough Salicylates Acetaminophen Plasma/Serum Alcohol Crossmatch 02/11/20 02/12/20 02/13/20 18:22 02:39 06:45 WBC RBC Hgb Hct MCH RDW Plt Count Lymph % (Auto) [place] % (Auto) [place] # Baso # Seg Neutrophils % Seg Neuts % (Manual) Lymphocytes % (Manual) Monocytes % (Manual) Seg Neutrophils # Seg Neutrophils # Man Lymphocytes # (Manual) Monocytes # (Manual) Eosinophils # (Manual) Basophils # (Manual) PT INR APTT ABG pH ABG pO2 ABG HCO3 ABG O2 Saturation ABG Base Excess ABG Hemoglobin Oxyhemoglobin Sodium Potassium Chloride Carbon Dioxide BUN Creatinine Glucose POC Glucose 118 H 107 H 124 H Lactic Acid Calcium Ionized Calcium Phosphorus Magnesium Total Bilirubin AST ALT Alkaline Phosphatase Ammonia Total Creatine Kinase CK-MB (CK-2) CK-MB (CK-2) Rel Index Total Protein Albumin Urine WBC (Auto) Vancomycin Trough Salicylates Acetaminophen Plasma/Serum Alcohol Crossmatch 02/13/20 02/13/20 02/14/20 12:26 18:19 00:21 WBC RBC Hgb Hct MCH RDW Plt Count Lymph % (Auto) [place] % (Auto) [place] # Baso # Seg Neutrophils % Seg Neuts % (Manual) Lymphocytes % (Manual) Monocytes % (Manual) Seg Neutrophils # Seg Neutrophils # Man Lymphocytes # (Manual) Monocytes # (Manual) Eosinophils # (Manual) Basophils # (Manual) PT INR APTT ABG pH ABG pO2 ABG HCO3 ABG O2 Saturation ABG Base Excess ABG Hemoglobin Oxyhemoglobin Sodium Potassium Chloride Carbon Dioxide BUN Creatinine Glucose POC Glucose 124 H 118 H 130 H Lactic Acid Calcium Ionized Calcium Phosphorus Magnesium Total Bilirubin AST ALT Alkaline Phosphatase Ammonia Total Creatine Kinase CK-MB (CK-2) CK-MB (CK-2) Rel Index Total Protein Albumin Urine WBC (Auto) Vancomycin Trough Salicylates Acetaminophen Plasma/Serum Alcohol Crossmatch 02/14/20 02/14/20 02/16/20 11:19 16:16 00:58 WBC RBC Hgb Hct MCH RDW Plt Count Lymph % (Auto) [place] % (Auto) [place] # Baso # Seg Neutrophils % Seg Neuts % (Manual) Lymphocytes % (Manual) Monocytes % (Manual) Seg Neutrophils # Seg Neutrophils # Man Lymphocytes # (Manual) Monocytes # (Manual) Eosinophils # (Manual) Basophils # (Manual) PT INR APTT ABG pH ABG pO2 ABG HCO3 ABG O2 Saturation ABG Base Excess ABG Hemoglobin Oxyhemoglobin Sodium Potassium Chloride Carbon Dioxide BUN Creatinine Glucose POC Glucose 135 H 119 H 121 H Lactic Acid Calcium Ionized Calcium Phosphorus Magnesium Total Bilirubin AST ALT Alkaline Phosphatase Ammonia Total Creatine Kinase CK-MB (CK-2) CK-MB (CK-2) Rel Index Total Protein Albumin Urine WBC (Auto) Vancomycin Trough Salicylates Acetaminophen Plasma/Serum Alcohol Crossmatch 02/16/20 02/16/20 02/16/20 12:12 18:22 23:51 WBC RBC Hgb Hct MCH RDW Plt Count Lymph % (Auto) [place] % (Auto) [place] # Baso # Seg Neutrophils % Seg Neuts % (Manual) Lymphocytes % (Manual) Monocytes % (Manual) Seg Neutrophils # Seg Neutrophils # Man Lymphocytes # (Manual) Monocytes # (Manual) Eosinophils # (Manual) Basophils # (Manual) PT INR APTT ABG pH ABG pO2 ABG HCO3 ABG O2 Saturation ABG Base Excess ABG Hemoglobin Oxyhemoglobin Sodium Potassium Chloride Carbon Dioxide BUN Creatinine Glucose POC Glucose 107 H 106 H 128 H Lactic Acid Calcium Ionized Calcium Phosphorus Magnesium Total Bilirubin AST ALT Alkaline Phosphatase Ammonia Total Creatine Kinase CK-MB (CK-2) CK-MB (CK-2) Rel Index Total Protein Albumin Urine WBC (Auto) Vancomycin Trough Salicylates Acetaminophen Plasma/Serum Alcohol Crossmatch 02/17/20 02/17/20 02/17/20 05:50 07:57 07:57 WBC 12.6 H RBC 3.52 L Hgb Hct MCH RDW 15.3 H Plt Count 643 H Lymph % (Auto) [place] % (Auto) 8.0 H [place] # 1.0 H Baso # Seg Neutrophils % Seg Neuts % (Manual) Lymphocytes % (Manual) Monocytes % (Manual) Seg Neutrophils # 8.5 H Seg Neutrophils # Man Lymphocytes # (Manual) Monocytes # (Manual) Eosinophils # (Manual) Basophils # (Manual) PT INR APTT ABG pH ABG pO2 ABG HCO3 ABG O2 Saturation ABG Base Excess ABG Hemoglobin Oxyhemoglobin Sodium Potassium Chloride 96.9 L Carbon Dioxide BUN 21 H Creatinine 0.4 L Glucose 113 H POC Glucose 116 H Lactic Acid Calcium 10.5 H Ionized Calcium Phosphorus Magnesium Total Bilirubin AST ALT Alkaline Phosphatase Ammonia Total Creatine Kinase CK-MB (CK-2) CK-MB (CK-2) Rel Index Total Protein Albumin Urine WBC (Auto) Vancomycin Trough Salicylates Acetaminophen Plasma/Serum Alcohol Crossmatch 02/17/20 02/17/20 02/18/20 12:05 18:16 00:13 WBC RBC Hgb Hct MCH RDW Plt Count Lymph % (Auto) [place] % (Auto) [place] # Baso # Seg Neutrophils % Seg Neuts % (Manual) Lymphocytes % (Manual) Monocytes % (Manual) Seg Neutrophils # Seg Neutrophils # Man Lymphocytes # (Manual) Monocytes # (Manual) Eosinophils # (Manual) Basophils # (Manual) PT INR APTT ABG pH ABG pO2 ABG HCO3 ABG O2 Saturation ABG Base Excess ABG Hemoglobin Oxyhemoglobin Sodium Potassium Chloride Carbon Dioxide BUN Creatinine Glucose POC Glucose 139 H 127 H 144 H Lactic Acid Calcium Ionized Calcium Phosphorus Magnesium Total Bilirubin AST ALT Alkaline Phosphatase Ammonia Total Creatine Kinase CK-MB (CK-2) CK-MB (CK-2) Rel Index Total Protein Albumin Urine WBC (Auto) Vancomycin Trough Salicylates Acetaminophen Plasma/Serum Alcohol Crossmatch 02/18/20 02/18/20 02/19/20 17:41 23:28 05:17 WBC RBC Hgb Hct MCH RDW Plt Count Lymph % (Auto) [place] % (Auto) [place] # Baso # Seg Neutrophils % Seg Neuts % (Manual) Lymphocytes % (Manual) Monocytes % (Manual) Seg Neutrophils # Seg Neutrophils # Man Lymphocytes # (Manual) Monocytes # (Manual) Eosinophils # (Manual) Basophils # (Manual) PT INR APTT ABG pH ABG pO2 ABG HCO3 ABG O2 Saturation ABG Base Excess ABG Hemoglobin Oxyhemoglobin Sodium Potassium Chloride Carbon Dioxide BUN Creatinine Glucose POC Glucose 118 H 166 H 116 H Lactic Acid Calcium Ionized Calcium Phosphorus Magnesium Total Bilirubin AST ALT Alkaline Phosphatase Ammonia Total Creatine Kinase CK-MB (CK-2) CK-MB (CK-2) Rel Index Total Protein Albumin Urine WBC (Auto) Vancomycin Trough Salicylates Acetaminophen Plasma/Serum Alcohol Crossmatch 02/19/20 02/19/20 02/20/20 12:33 17:02 00:12 WBC RBC Hgb Hct MCH RDW Plt Count Lymph % (Auto) [place] % (Auto) [place] # Baso # Seg Neutrophils % Seg Neuts % (Manual) Lymphocytes % (Manual) Monocytes % (Manual) Seg Neutrophils # Seg Neutrophils # Man Lymphocytes # (Manual) Monocytes # (Manual) Eosinophils # (Manual) Basophils # (Manual) PT INR APTT ABG pH ABG pO2 ABG HCO3 ABG O2 Saturation ABG Base Excess ABG Hemoglobin Oxyhemoglobin Sodium Potassium Chloride Carbon Dioxide BUN Creatinine Glucose POC Glucose 115 H 108 H 153 H Lactic Acid Calcium Ionized Calcium Phosphorus Magnesium Total Bilirubin AST ALT Alkaline Phosphatase Ammonia Total Creatine Kinase CK-MB (CK-2) CK-MB (CK-2) Rel Index Total Protein Albumin Urine WBC (Auto) Vancomycin Trough Salicylates Acetaminophen Plasma/Serum Alcohol Crossmatch 02/20/20 02/20/20 02/21/20 12:00 23:13 05:07 WBC RBC Hgb Hct MCH RDW Plt Count Lymph % (Auto) [place] % (Auto) [place] # Baso # Seg Neutrophils % Seg Neuts % (Manual) Lymphocytes % (Manual) Monocytes % (Manual) Seg Neutrophils # Seg Neutrophils # Man Lymphocytes # (Manual) Monocytes # (Manual) Eosinophils # (Manual) Basophils # (Manual) PT INR APTT ABG pH ABG pO2 ABG HCO3 ABG O2 Saturation ABG Base Excess ABG Hemoglobin Oxyhemoglobin Sodium Potassium Chloride Carbon Dioxide BUN Creatinine Glucose POC Glucose 171 H 129 H 116 H Lactic Acid Calcium Ionized Calcium Phosphorus Magnesium Total Bilirubin AST ALT Alkaline Phosphatase Ammonia Total Creatine Kinase CK-MB (CK-2) CK-MB (CK-2) Rel Index Total Protein Albumin Urine WBC (Auto) Vancomycin Trough Salicylates Acetaminophen Plasma/Serum Alcohol Crossmatch 02/21/20 02/22/20 02/22/20 12:15 00:42 06:30 WBC RBC Hgb Hct MCH RDW Plt Count Lymph % (Auto) [place] % (Auto) [place] # Baso # Seg Neutrophils % Seg Neuts % (Manual) Lymphocytes % (Manual) Monocytes % (Manual) Seg Neutrophils # Seg Neutrophils # Man Lymphocytes # (Manual) Monocytes # (Manual) Eosinophils # (Manual) Basophils # (Manual) PT INR APTT ABG pH ABG pO2 ABG HCO3 ABG O2 Saturation ABG Base Excess ABG Hemoglobin Oxyhemoglobin Sodium Potassium Chloride Carbon Dioxide BUN Creatinine Glucose POC Glucose 124 H 142 H 117 H Lactic Acid Calcium Ionized Calcium Phosphorus Magnesium Total Bilirubin AST ALT Alkaline Phosphatase Ammonia Total Creatine Kinase CK-MB (CK-2) CK-MB (CK-2) Rel Index Total Protein Albumin Urine WBC (Auto) Vancomycin Trough Salicylates Acetaminophen Plasma/Serum Alcohol Crossmatch 02/22/20 02/22/20 02/23/20 12:20 17:55 12:46 WBC RBC Hgb Hct MCH RDW Plt Count Lymph % (Auto) [place] % (Auto) [place] # Baso # Seg Neutrophils % Seg Neuts % (Manual) Lymphocytes % (Manual) Monocytes % (Manual) Seg Neutrophils # Seg Neutrophils # Man Lymphocytes # (Manual) Monocytes # (Manual) Eosinophils # (Manual) Basophils # (Manual) PT INR APTT ABG pH ABG pO2 ABG HCO3 ABG O2 Saturation ABG Base Excess ABG Hemoglobin Oxyhemoglobin Sodium Potassium Chloride Carbon Dioxide BUN Creatinine Glucose POC Glucose 121 H 157 H 112 H Lactic Acid Calcium Ionized Calcium Phosphorus Magnesium Total Bilirubin AST ALT Alkaline Phosphatase Ammonia Total Creatine Kinase CK-MB (CK-2) CK-MB (CK-2) Rel Index Total Protein Albumin Urine WBC (Auto) Vancomycin Trough Salicylates Acetaminophen Plasma/Serum Alcohol Crossmatch 02/23/20 02/24/20 02/24/20 16:47 00:38 07:00 WBC RBC Hgb Hct MCH RDW Plt Count Lymph % (Auto) [place] % (Auto) [place] # Baso # Seg Neutrophils % Seg Neuts % (Manual) Lymphocytes % (Manual) Monocytes % (Manual) Seg Neutrophils # Seg Neutrophils # Man Lymphocytes # (Manual) Monocytes # (Manual) Eosinophils # (Manual) Basophils # (Manual) PT INR APTT ABG pH ABG pO2 ABG HCO3 ABG O2 Saturation ABG Base Excess ABG Hemoglobin Oxyhemoglobin Sodium Potassium Chloride Carbon Dioxide BUN Creatinine Glucose POC Glucose 142 H 138 H 118 H Lactic Acid Calcium Ionized Calcium Phosphorus Magnesium Total Bilirubin AST ALT Alkaline Phosphatase Ammonia Total Creatine Kinase CK-MB (CK-2) CK-MB (CK-2) Rel Index Total Protein Albumin Urine WBC (Auto) Vancomycin Trough Salicylates Acetaminophen Plasma/Serum Alcohol Crossmatch 02/24/20 02/24/20 02/25/20 11:41 18:33 18:24 WBC RBC Hgb Hct MCH RDW Plt Count Lymph % (Auto) [place] % (Auto) [place] # Baso # Seg Neutrophils % Seg Neuts % (Manual) Lymphocytes % (Manual) Monocytes % (Manual) Seg Neutrophils # Seg Neutrophils # Man Lymphocytes # (Manual) Monocytes # (Manual) Eosinophils # (Manual) Basophils # (Manual) PT INR APTT ABG pH ABG pO2 ABG HCO3 ABG O2 Saturation ABG Base Excess ABG Hemoglobin Oxyhemoglobin Sodium Potassium Chloride Carbon Dioxide BUN Creatinine Glucose POC Glucose 152 H 126 H 120 H Lactic Acid Calcium Ionized Calcium Phosphorus Magnesium Total Bilirubin AST ALT Alkaline Phosphatase Ammonia Total Creatine Kinase CK-MB (CK-2) CK-MB (CK-2) Rel Index Total Protein Albumin Urine WBC (Auto) Vancomycin Trough Salicylates Acetaminophen Plasma/Serum Alcohol Crossmatch 02/25/20 02/26/20 02/26/20 23:40 05:46 11:32 WBC RBC Hgb Hct MCH RDW Plt Count Lymph % (Auto) [place] % (Auto) [place] # Baso # Seg Neutrophils % Seg Neuts % (Manual) Lymphocytes % (Manual) Monocytes % (Manual) Seg Neutrophils # Seg Neutrophils # Man Lymphocytes # (Manual) Monocytes # (Manual) Eosinophils # (Manual) Basophils # (Manual) PT INR APTT ABG pH ABG pO2 ABG HCO3 ABG O2 Saturation ABG Base Excess ABG Hemoglobin Oxyhemoglobin Sodium Potassium Chloride Carbon Dioxide BUN Creatinine Glucose POC Glucose 114 H 113 H 106 H Lactic Acid Calcium Ionized Calcium Phosphorus Magnesium Total Bilirubin AST ALT Alkaline Phosphatase Ammonia Total Creatine Kinase CK-MB (CK-2) CK-MB (CK-2) Rel Index Total Protein Albumin Urine WBC (Auto) Vancomycin Trough Salicylates Acetaminophen Plasma/Serum Alcohol Crossmatch 02/26/20 02/27/20 02/27/20 16:14 11:53 17:54 WBC RBC Hgb Hct MCH RDW Plt Count Lymph % (Auto) [place] % (Auto) [place] # Baso # Seg Neutrophils % Seg Neuts % (Manual) Lymphocytes % (Manual) Monocytes % (Manual) Seg Neutrophils # Seg Neutrophils # Man Lymphocytes # (Manual) Monocytes # (Manual) Eosinophils # (Manual) Basophils # (Manual) PT INR APTT ABG pH ABG pO2 ABG HCO3 ABG O2 Saturation ABG Base Excess ABG Hemoglobin Oxyhemoglobin Sodium Potassium Chloride Carbon Dioxide BUN Creatinine Glucose POC Glucose 123 H 134 H 119 H Lactic Acid Calcium Ionized Calcium Phosphorus Magnesium Total Bilirubin AST ALT Alkaline Phosphatase Ammonia Total Creatine Kinase CK-MB (CK-2) CK-MB (CK-2) Rel Index Total Protein Albumin Urine WBC (Auto) Vancomycin Trough Salicylates Acetaminophen Plasma/Serum Alcohol Crossmatch 02/27/20 02/28/20 02/28/20 23:51 03:40 03:40 WBC RBC 3.58 L Hgb Hct MCH RDW Plt Count 575 H Lymph % (Auto) [place] % (Auto) 9.4 H [place] # 1.0 H Baso # Seg Neutrophils % Seg Neuts % (Manual) Lymphocytes % (Manual) Monocytes % (Manual) Seg Neutrophils # Seg Neutrophils # Man Lymphocytes # (Manual) Monocytes # (Manual) Eosinophils # (Manual) Basophils # (Manual) PT INR APTT ABG pH ABG pO2 ABG HCO3 ABG O2 Saturation ABG Base Excess ABG Hemoglobin Oxyhemoglobin Sodium Potassium Chloride Carbon Dioxide BUN 23 H Creatinine 0.5 L Glucose 114 H POC Glucose 138 H Lactic Acid Calcium Ionized Calcium Phosphorus Magnesium Total Bilirubin AST ALT Alkaline Phosphatase Ammonia Total Creatine Kinase CK-MB (CK-2) CK-MB (CK-2) Rel Index Total Protein Albumin Urine WBC (Auto) Vancomycin Trough Salicylates Acetaminophen Plasma/Serum Alcohol Crossmatch 02/28/20 02/28/20 02/29/20 12:37 18:38 05:50 WBC RBC Hgb Hct MCH RDW Plt Count Lymph % (Auto) [place] % (Auto) [place] # Baso # Seg Neutrophils % Seg Neuts % (Manual) Lymphocytes % (Manual) Monocytes % (Manual) Seg Neutrophils # Seg Neutrophils # Man Lymphocytes # (Manual) Monocytes # (Manual) Eosinophils # (Manual) Basophils # (Manual) PT INR APTT ABG pH ABG pO2 ABG HCO3 ABG O2 Saturation ABG Base Excess ABG Hemoglobin Oxyhemoglobin Sodium Potassium Chloride Carbon Dioxide BUN Creatinine Glucose POC Glucose 115 H 120 H 114 H Lactic Acid Calcium Ionized Calcium Phosphorus Magnesium Total Bilirubin AST ALT Alkaline Phosphatase Ammonia Total Creatine Kinase CK-MB (CK-2) CK-MB (CK-2) Rel Index Total Protein Albumin Urine WBC (Auto) Vancomycin Trough Salicylates Acetaminophen Plasma/Serum Alcohol Crossmatch 02/29/20 02/29/20 03/01/20 18:53 23:10 06:53 WBC RBC Hgb Hct MCH RDW Plt Count Lymph % (Auto) [place] % (Auto) [place] # Baso # Seg Neutrophils % Seg Neuts % (Manual) Lymphocytes % (Manual) Monocytes % (Manual) Seg Neutrophils # Seg Neutrophils # Man Lymphocytes # (Manual) Monocytes # (Manual) Eosinophils # (Manual) Basophils # (Manual) PT INR APTT ABG pH ABG pO2 ABG HCO3 ABG O2 Saturation ABG Base Excess ABG Hemoglobin Oxyhemoglobin Sodium Potassium Chloride Carbon Dioxide BUN Creatinine Glucose POC Glucose 112 H 147 H 131 H Lactic Acid Calcium Ionized Calcium Phosphorus Magnesium Total Bilirubin AST ALT Alkaline Phosphatase Ammonia Total Creatine Kinase CK-MB (CK-2) CK-MB (CK-2) Rel Index Total Protein Albumin Urine WBC (Auto) Vancomycin Trough Salicylates Acetaminophen Plasma/Serum Alcohol Crossmatch 03/01/20 03/01/20 03/02/20 17:31 18:35 00:10 WBC RBC Hgb Hct MCH RDW Plt Count Lymph % (Auto) [place] % (Auto) [place] # Baso # Seg Neutrophils % Seg Neuts % (Manual) Lymphocytes % (Manual) Monocytes % (Manual) Seg Neutrophils # Seg Neutrophils # Man Lymphocytes # (Manual) Monocytes # (Manual) Eosinophils # (Manual) Basophils # (Manual) PT INR APTT ABG pH ABG pO2 ABG HCO3 ABG O2 Saturation ABG Base Excess ABG Hemoglobin Oxyhemoglobin Sodium Potassium Chloride Carbon Dioxide BUN Creatinine Glucose POC Glucose 61 L 129 H 117 H Lactic Acid Calcium Ionized Calcium Phosphorus Magnesium Total Bilirubin AST ALT Alkaline Phosphatase Ammonia Total Creatine Kinase CK-MB (CK-2) CK-MB (CK-2) Rel Index Total Protein Albumin Urine WBC (Auto) Vancomycin Trough Salicylates Acetaminophen Plasma/Serum Alcohol Crossmatch 03/02/20 03/02/20 03/02/20 06:56 12:02 18:42 WBC RBC Hgb Hct MCH RDW Plt Count Lymph % (Auto) [place] % (Auto) [place] # Baso # Seg Neutrophils % Seg Neuts % (Manual) Lymphocytes % (Manual) Monocytes % (Manual) Seg Neutrophils # Seg Neutrophils # Man Lymphocytes # (Manual) Monocytes # (Manual) Eosinophils # (Manual) Basophils # (Manual) PT INR APTT ABG pH ABG pO2 ABG HCO3 ABG O2 Saturation ABG Base Excess ABG Hemoglobin Oxyhemoglobin Sodium Potassium Chloride Carbon Dioxide BUN Creatinine Glucose POC Glucose 125 H 111 H 126 H Lactic Acid Calcium Ionized Calcium Phosphorus Magnesium Total Bilirubin AST ALT Alkaline Phosphatase Ammonia Total Creatine Kinase CK-MB (CK-2) CK-MB (CK-2) Rel Index Total Protein Albumin Urine WBC (Auto) Vancomycin Trough Salicylates Acetaminophen Plasma/Serum Alcohol Crossmatch 03/03/20 03/03/20 03/03/20 00:18 06:11 11:50 WBC RBC Hgb Hct MCH RDW Plt Count Lymph % (Auto) [place] % (Auto) [place] # Baso # Seg Neutrophils % Seg Neuts % (Manual) Lymphocytes % (Manual) Monocytes % (Manual) Seg Neutrophils # Seg Neutrophils # Man Lymphocytes # (Manual) Monocytes # (Manual) Eosinophils # (Manual) Basophils # (Manual) PT INR APTT ABG pH ABG pO2 ABG HCO3 ABG O2 Saturation ABG Base Excess ABG Hemoglobin Oxyhemoglobin Sodium Potassium Chloride Carbon Dioxide BUN Creatinine Glucose POC Glucose 139 H 155 H 118 H Lactic Acid Calcium Ionized Calcium Phosphorus Magnesium Total Bilirubin AST ALT Alkaline Phosphatase Ammonia Total Creatine Kinase CK-MB (CK-2) CK-MB (CK-2) Rel Index Total Protein Albumin Urine WBC (Auto) Vancomycin Trough Salicylates Acetaminophen Plasma/Serum Alcohol Crossmatch 03/03/20 03/03/20 03/04/20 18:09 23:46 05:37 WBC RBC Hgb Hct MCH RDW Plt Count Lymph % (Auto) [place] % (Auto) [place] # Baso # Seg Neutrophils % Seg Neuts % (Manual) Lymphocytes % (Manual) Monocytes % (Manual) Seg Neutrophils # Seg Neutrophils # Man Lymphocytes # (Manual) Monocytes # (Manual) Eosinophils # (Manual) Basophils # (Manual) PT INR APTT ABG pH ABG pO2 ABG HCO3 ABG O2 Saturation ABG Base Excess ABG Hemoglobin Oxyhemoglobin Sodium Potassium Chloride Carbon Dioxide BUN Creatinine Glucose POC Glucose 109 H 132 H 111 H Lactic Acid Calcium Ionized Calcium Phosphorus Magnesium Total Bilirubin AST ALT Alkaline Phosphatase Ammonia Total Creatine Kinase CK-MB (CK-2) CK-MB (CK-2) Rel Index Total Protein Albumin Urine WBC (Auto) Vancomycin Trough Salicylates Acetaminophen Plasma/Serum Alcohol Crossmatch 03/04/20 03/04/20 03/05/20 11:38 17:54 00:14 WBC RBC Hgb Hct MCH RDW Plt Count Lymph % (Auto) [place] % (Auto) [place] # Baso # Seg Neutrophils % Seg Neuts % (Manual) Lymphocytes % (Manual) Monocytes % (Manual) Seg Neutrophils # Seg Neutrophils # Man Lymphocytes # (Manual) Monocytes # (Manual) Eosinophils # (Manual) Basophils # (Manual) PT INR APTT ABG pH ABG pO2 ABG HCO3 ABG O2 Saturation ABG Base Excess ABG Hemoglobin Oxyhemoglobin Sodium Potassium Chloride Carbon Dioxide BUN Creatinine Glucose POC Glucose 138 H 118 H 134 H Lactic Acid Calcium Ionized Calcium Phosphorus Magnesium Total Bilirubin AST ALT Alkaline Phosphatase Ammonia Total Creatine Kinase CK-MB (CK-2) CK-MB (CK-2) Rel Index Total Protein Albumin Urine WBC (Auto) Vancomycin Trough Salicylates Acetaminophen Plasma/Serum Alcohol Crossmatch 03/06/20 03/06/20 03/06/20 03:37 03:37 06:29 WBC RBC Hgb Hct MCH RDW Plt Count 550 H Lymph % (Auto) [place] % (Auto) 9.1 H [place] # Baso # Seg Neutrophils % Seg Neuts % (Manual) Lymphocytes % (Manual) Monocytes % (Manual) Seg Neutrophils # Seg Neutrophils # Man Lymphocytes # (Manual) Monocytes # (Manual) Eosinophils # (Manual) Basophils # (Manual) PT INR APTT ABG pH ABG pO2 ABG HCO3 ABG O2 Saturation ABG Base Excess ABG Hemoglobin Oxyhemoglobin Sodium Potassium Chloride Carbon Dioxide BUN 26 H Creatinine 0.5 L Glucose POC Glucose 128 H Lactic Acid Calcium 10.4 H Ionized Calcium Phosphorus Magnesium Total Bilirubin AST ALT Alkaline Phosphatase Ammonia Total Creatine Kinase CK-MB (CK-2) CK-MB (CK-2) Rel Index Total Protein Albumin Urine WBC (Auto) Vancomycin Trough Salicylates Acetaminophen Plasma/Serum Alcohol Crossmatch 03/06/20 03/07/20 03/07/20 17:47 06:37 12:37 WBC RBC Hgb Hct MCH RDW Plt Count Lymph % (Auto) [place] % (Auto) [place] # Baso # Seg Neutrophils % Seg Neuts % (Manual) Lymphocytes % (Manual) Monocytes % (Manual) Seg Neutrophils # Seg Neutrophils # Man Lymphocytes # (Manual) Monocytes # (Manual) Eosinophils # (Manual) Basophils # (Manual) PT INR APTT ABG pH ABG pO2 ABG HCO3 ABG O2 Saturation ABG Base Excess ABG Hemoglobin Oxyhemoglobin Sodium Potassium Chloride Carbon Dioxide BUN Creatinine Glucose POC Glucose 120 H 113 H 118 H Lactic Acid Calcium Ionized Calcium Phosphorus Magnesium Total Bilirubin AST ALT Alkaline Phosphatase Ammonia Total Creatine Kinase CK-MB (CK-2) CK-MB (CK-2) Rel Index Total Protein Albumin Urine WBC (Auto) Vancomycin Trough Salicylates Acetaminophen Plasma/Serum Alcohol Crossmatch 03/07/20 03/08/20 03/08/20 16:41 00:55 06:25 WBC RBC Hgb Hct MCH RDW Plt Count Lymph % (Auto) [place] % (Auto) [place] # Baso # Seg Neutrophils % Seg Neuts % (Manual) Lymphocytes % (Manual) Monocytes % (Manual) Seg Neutrophils # Seg Neutrophils # Man Lymphocytes # (Manual) Monocytes # (Manual) Eosinophils # (Manual) Basophils # (Manual) PT INR APTT ABG pH ABG pO2 ABG HCO3 ABG O2 Saturation ABG Base Excess ABG Hemoglobin Oxyhemoglobin Sodium Potassium Chloride Carbon Dioxide BUN Creatinine Glucose POC Glucose 108 H 139 H 127 H Lactic Acid Calcium Ionized Calcium Phosphorus Magnesium Total Bilirubin AST ALT Alkaline Phosphatase Ammonia Total Creatine Kinase CK-MB (CK-2) CK-MB (CK-2) Rel Index Total Protein Albumin Urine WBC (Auto) Vancomycin Trough Salicylates Acetaminophen Plasma/Serum Alcohol Crossmatch 03/08/20 03/08/20 03/08/20 12:49 13:25 17:13 WBC RBC Hgb Hct MCH RDW Plt Count Lymph % (Auto) [place] % (Auto) [place] # Baso # Seg Neutrophils % Seg Neuts % (Manual) Lymphocytes % (Manual) Monocytes % (Manual) Seg Neutrophils # Seg Neutrophils # Man Lymphocytes # (Manual) Monocytes # (Manual) Eosinophils # (Manual) Basophils # (Manual) PT INR APTT ABG pH ABG pO2 71.1 L ABG HCO3 26.2 H ABG O2 Saturation ABG Base Excess ABG Hemoglobin 8.2 L Oxyhemoglobin 94.8 L Sodium Potassium Chloride Carbon Dioxide BUN Creatinine Glucose POC Glucose 127 H 147 H Lactic Acid Calcium Ionized Calcium Phosphorus Magnesium Total Bilirubin AST ALT Alkaline Phosphatase Ammonia Total Creatine Kinase CK-MB (CK-2) CK-MB (CK-2) Rel Index Total Protein Albumin Urine WBC (Auto) Vancomycin Trough Salicylates Acetaminophen Plasma/Serum Alcohol Crossmatch 03/09/20 03/09/20 03/09/20 06:28 08:36 23:58 WBC RBC Hgb Hct MCH RDW Plt Count Lymph % (Auto) [place] % (Auto) [place] # Baso # Seg Neutrophils % Seg Neuts % (Manual) Lymphocytes % (Manual) Monocytes % (Manual) Seg Neutrophils # Seg Neutrophils # Man Lymphocytes # (Manual) Monocytes # (Manual) Eosinophils # (Manual) Basophils # (Manual) PT INR APTT ABG pH ABG pO2 ABG HCO3 ABG O2 Saturation ABG Base Excess ABG Hemoglobin Oxyhemoglobin Sodium Potassium Chloride Carbon Dioxide BUN Creatinine Glucose POC Glucose 139 H 167 H 122 H Lactic Acid Calcium Ionized Calcium Phosphorus Magnesium Total Bilirubin AST ALT Alkaline Phosphatase Ammonia Total Creatine Kinase CK-MB (CK-2) CK-MB (CK-2) Rel Index Total Protein Albumin Urine WBC (Auto) Vancomycin Trough Salicylates Acetaminophen Plasma/Serum Alcohol Crossmatch 03/10/20 03/10/20 03/11/20 06:32 23:27 06:23 WBC RBC Hgb Hct MCH RDW Plt Count Lymph % (Auto) [place] % (Auto) [place] # Baso # Seg Neutrophils % Seg Neuts % (Manual) Lymphocytes % (Manual) Monocytes % (Manual) Seg Neutrophils # Seg Neutrophils # Man Lymphocytes # (Manual) Monocytes # (Manual) Eosinophils # (Manual) Basophils # (Manual) PT INR APTT ABG pH ABG pO2 ABG HCO3 ABG O2 Saturation ABG Base Excess ABG Hemoglobin Oxyhemoglobin Sodium Potassium Chloride Carbon Dioxide BUN Creatinine Glucose POC Glucose 165 H 115 H 139 H Lactic Acid Calcium Ionized Calcium Phosphorus Magnesium Total Bilirubin AST ALT Alkaline Phosphatase Ammonia Total Creatine Kinase CK-MB (CK-2) CK-MB (CK-2) Rel Index Total Protein Albumin Urine WBC (Auto) Vancomycin Trough Salicylates Acetaminophen Plasma/Serum Alcohol Crossmatch 03/11/20 03/11/20 03/12/20 12:29 18:02 04:53 WBC RBC Hgb Hct MCH RDW Plt Count 625 H Lymph % (Auto) [place] % (Auto) [place] # Baso # Seg Neutrophils % Seg Neuts % (Manual) Lymphocytes % (Manual) Monocytes % (Manual) Seg Neutrophils # Seg Neutrophils # Man Lymphocytes # (Manual) Monocytes # (Manual) Eosinophils # (Manual) Basophils # (Manual) PT INR APTT ABG pH ABG pO2 ABG HCO3 ABG O2 Saturation ABG Base Excess ABG Hemoglobin Oxyhemoglobin Sodium Potassium Chloride Carbon Dioxide BUN Creatinine Glucose POC Glucose 164 H 113 H Lactic Acid Calcium Ionized Calcium Phosphorus Magnesium Total Bilirubin AST ALT Alkaline Phosphatase Ammonia Total Creatine Kinase CK-MB (CK-2) CK-MB (CK-2) Rel Index Total Protein Albumin Urine WBC (Auto) Vancomycin Trough Salicylates Acetaminophen Plasma/Serum Alcohol Crossmatch 03/12/20 03/12/20 03/12/20 04:53 06:26 12:38 WBC RBC Hgb Hct MCH RDW Plt Count Lymph % (Auto) [place] % (Auto) [place] # Baso # Seg Neutrophils % Seg Neuts % (Manual) Lymphocytes % (Manual) Monocytes % (Manual) Seg Neutrophils # Seg Neutrophils # Man Lymphocytes # (Manual) Monocytes # (Manual) Eosinophils # (Manual) Basophils # (Manual) PT INR APTT ABG pH ABG pO2 ABG HCO3 ABG O2 Saturation ABG Base Excess ABG Hemoglobin Oxyhemoglobin Sodium Potassium 5.3 H Chloride Carbon Dioxide BUN 34 H Creatinine Glucose 159 H POC Glucose 149 H 130 H Lactic Acid Calcium 10.7 H Ionized Calcium Phosphorus Magnesium Total Bilirubin AST ALT Alkaline Phosphatase Ammonia Total Creatine Kinase CK-MB (CK-2) CK-MB (CK-2) Rel Index Total Protein Albumin Urine WBC (Auto) Vancomycin Trough Salicylates Acetaminophen Plasma/Serum Alcohol Crossmatch 03/13/20 03/13/20 03/13/20 03:50 06:12 18:11 WBC RBC Hgb Hct MCH RDW Plt Count Lymph % (Auto) [place] % (Auto) [place] # Baso # Seg Neutrophils % Seg Neuts % (Manual) Lymphocytes % (Manual) Monocytes % (Manual) Seg Neutrophils # Seg Neutrophils # Man Lymphocytes # (Manual) Monocytes # (Manual) Eosinophils # (Manual) Basophils # (Manual) PT INR APTT ABG pH ABG pO2 ABG HCO3 ABG O2 Saturation ABG Base Excess ABG Hemoglobin Oxyhemoglobin Sodium Potassium Chloride Carbon Dioxide 20 L BUN 30 H Creatinine 0.6 L Glucose 153 H POC Glucose 124 H 111 H Lactic Acid Calcium Ionized Calcium Phosphorus Magnesium Total Bilirubin AST ALT Alkaline Phosphatase Ammonia Total Creatine Kinase CK-MB (CK-2) CK-MB (CK-2) Rel Index Total Protein Albumin Urine WBC (Auto) Vancomycin Trough Salicylates Acetaminophen Plasma/Serum Alcohol Crossmatch 03/14/20 03/14/20 03/15/20 12:01 15:40 00:02 WBC RBC Hgb Hct MCH RDW Plt Count Lymph % (Auto) [place] % (Auto) [place] # Baso # Seg Neutrophils % Seg Neuts % (Manual) Lymphocytes % (Manual) Monocytes % (Manual) Seg Neutrophils # Seg Neutrophils # Man Lymphocytes # (Manual) Monocytes # (Manual) Eosinophils # (Manual) Basophils # (Manual) PT INR APTT ABG pH ABG pO2 ABG HCO3 ABG O2 Saturation ABG Base Excess ABG Hemoglobin Oxyhemoglobin Sodium Potassium Chloride Carbon Dioxide BUN Creatinine Glucose POC Glucose 116 H 125 H 143 H Lactic Acid Calcium Ionized Calcium Phosphorus Magnesium Total Bilirubin AST ALT Alkaline Phosphatase Ammonia Total Creatine Kinase CK-MB (CK-2) CK-MB (CK-2) Rel Index Total Protein Albumin Urine WBC (Auto) Vancomycin Trough Salicylates Acetaminophen Plasma/Serum Alcohol Crossmatch 03/15/20 03/15/20 03/16/20 12:03 18:14 12:14 WBC RBC Hgb Hct MCH RDW Plt Count Lymph % (Auto) [place] % (Auto) [place] # Baso # Seg Neutrophils % Seg Neuts % (Manual) Lymphocytes % (Manual) Monocytes % (Manual) Seg Neutrophils # Seg Neutrophils # Man Lymphocytes # (Manual) Monocytes # (Manual) Eosinophils # (Manual) Basophils # (Manual) PT INR APTT ABG pH ABG pO2 ABG HCO3 ABG O2 Saturation ABG Base Excess ABG Hemoglobin Oxyhemoglobin Sodium Potassium Chloride Carbon Dioxide BUN Creatinine Glucose POC Glucose 106 H 107 H 107 H Lactic Acid Calcium Ionized Calcium Phosphorus Magnesium Total Bilirubin AST ALT Alkaline Phosphatase Ammonia Total Creatine Kinase CK-MB (CK-2) CK-MB (CK-2) Rel Index Total Protein Albumin Urine WBC (Auto) Vancomycin Trough Salicylates Acetaminophen Plasma/Serum Alcohol Crossmatch 03/16/20 03/17/20 03/17/20 18:30 05:44 12:09 WBC RBC Hgb Hct MCH RDW Plt Count Lymph % (Auto) [place] % (Auto) [place] # Baso # Seg Neutrophils % Seg Neuts % (Manual) Lymphocytes % (Manual) Monocytes % (Manual) Seg Neutrophils # Seg Neutrophils # Man Lymphocytes # (Manual) Monocytes # (Manual) Eosinophils # (Manual) Basophils # (Manual) PT INR APTT ABG pH ABG pO2 ABG HCO3 ABG O2 Saturation ABG Base Excess ABG Hemoglobin Oxyhemoglobin Sodium Potassium Chloride Carbon Dioxide BUN Creatinine Glucose POC Glucose 128 H 114 H 120 H Lactic Acid Calcium Ionized Calcium Phosphorus Magnesium Total Bilirubin AST ALT Alkaline Phosphatase Ammonia Total Creatine Kinase CK-MB (CK-2) CK-MB (CK-2) Rel Index Total Protein Albumin Urine WBC (Auto) Vancomycin Trough Salicylates Acetaminophen Plasma/Serum Alcohol Crossmatch 03/17/20 03/17/20 03/18/20 16:51 23:36 07:07 WBC RBC Hgb Hct MCH RDW Plt Count Lymph % (Auto) [place] % (Auto) [place] # Baso # Seg Neutrophils % Seg Neuts % (Manual) Lymphocytes % (Manual) Monocytes % (Manual) Seg Neutrophils # Seg Neutrophils # Man Lymphocytes # (Manual) Monocytes # (Manual) Eosinophils # (Manual) Basophils # (Manual) PT INR APTT ABG pH ABG pO2 ABG HCO3 ABG O2 Saturation ABG Base Excess ABG Hemoglobin Oxyhemoglobin Sodium Potassium Chloride Carbon Dioxide BUN Creatinine Glucose POC Glucose 108 H 145 H 116 H Lactic Acid Calcium Ionized Calcium Phosphorus Magnesium Total Bilirubin AST ALT Alkaline Phosphatase Ammonia Total Creatine Kinase CK-MB (CK-2) CK-MB (CK-2) Rel Index Total Protein Albumin Urine WBC (Auto) Vancomycin Trough Salicylates Acetaminophen Plasma/Serum Alcohol Crossmatch 03/18/20 03/19/20 03/19/20 18:11 06:09 11:49 WBC RBC Hgb Hct MCH RDW Plt Count Lymph % (Auto) [place] % (Auto) [place] # Baso # Seg Neutrophils % Seg Neuts % (Manual) Lymphocytes % (Manual) Monocytes % (Manual) Seg Neutrophils # Seg Neutrophils # Man Lymphocytes # (Manual) Monocytes # (Manual) Eosinophils # (Manual) Basophils # (Manual) PT INR APTT ABG pH ABG pO2 ABG HCO3 ABG O2 Saturation ABG Base Excess ABG Hemoglobin Oxyhemoglobin Sodium Potassium Chloride Carbon Dioxide BUN Creatinine Glucose POC Glucose 106 H 160 H 145 H Lactic Acid Calcium Ionized Calcium Phosphorus Magnesium Total Bilirubin AST ALT Alkaline Phosphatase Ammonia Total Creatine Kinase CK-MB (CK-2) CK-MB (CK-2) Rel Index Total Protein Albumin Urine WBC (Auto) Vancomycin Trough Salicylates Acetaminophen Plasma/Serum Alcohol Crossmatch 03/20/20 03/20/20 03/20/20 01:01 06:14 12:52 WBC RBC Hgb Hct MCH RDW Plt Count Lymph % (Auto) [place] % (Auto) [place] # Baso # Seg Neutrophils % Seg Neuts % (Manual) Lymphocytes % (Manual) Monocytes % (Manual) Seg Neutrophils # Seg Neutrophils # Man Lymphocytes # (Manual) Monocytes # (Manual) Eosinophils # (Manual) Basophils # (Manual) PT INR APTT ABG pH ABG pO2 ABG HCO3 ABG O2 Saturation ABG Base Excess ABG Hemoglobin Oxyhemoglobin Sodium Potassium Chloride Carbon Dioxide BUN Creatinine Glucose POC Glucose 109 H 122 H 106 H Lactic Acid Calcium Ionized Calcium Phosphorus Magnesium Total Bilirubin AST ALT Alkaline Phosphatase Ammonia Total Creatine Kinase CK-MB (CK-2) CK-MB (CK-2) Rel Index Total Protein Albumin Urine WBC (Auto) Vancomycin Trough Salicylates Acetaminophen Plasma/Serum Alcohol Crossmatch 03/20/20 03/21/20 03/21/20 18:56 00:18 05:21 WBC RBC Hgb Hct MCH RDW Plt Count Lymph % (Auto) [place] % (Auto) [place] # Baso # Seg Neutrophils % Seg Neuts % (Manual) Lymphocytes % (Manual) Monocytes % (Manual) Seg Neutrophils # Seg Neutrophils # Man Lymphocytes # (Manual) Monocytes # (Manual) Eosinophils # (Manual) Basophils # (Manual) PT INR APTT ABG pH ABG pO2 ABG HCO3 ABG O2 Saturation ABG Base Excess ABG Hemoglobin Oxyhemoglobin Sodium Potassium Chloride Carbon Dioxide BUN Creatinine Glucose POC Glucose 110 H 140 H 112 H Lactic Acid Calcium Ionized Calcium Phosphorus Magnesium Total Bilirubin AST ALT Alkaline Phosphatase Ammonia Total Creatine Kinase CK-MB (CK-2) CK-MB (CK-2) Rel Index Total Protein Albumin Urine WBC (Auto) Vancomycin Trough Salicylates Acetaminophen Plasma/Serum Alcohol Crossmatch 03/21/20 03/22/20 03/22/20 17:15 01:14 12:08 WBC RBC Hgb Hct MCH RDW Plt Count Lymph % (Auto) [place] % (Auto) [place] # Baso # Seg Neutrophils % Seg Neuts % (Manual) Lymphocytes % (Manual) Monocytes % (Manual) Seg Neutrophils # Seg Neutrophils # Man Lymphocytes # (Manual) Monocytes # (Manual) Eosinophils # (Manual) Basophils # (Manual) PT INR APTT ABG pH ABG pO2 ABG HCO3 ABG O2 Saturation ABG Base Excess ABG Hemoglobin Oxyhemoglobin Sodium Potassium Chloride Carbon Dioxide BUN Creatinine Glucose POC Glucose 158 H 157 H 133 H Lactic Acid Calcium Ionized Calcium Phosphorus Magnesium Total Bilirubin AST ALT Alkaline Phosphatase Ammonia Total Creatine Kinase CK-MB (CK-2) CK-MB (CK-2) Rel Index Total Protein Albumin Urine WBC (Auto) Vancomycin Trough Salicylates Acetaminophen Plasma/Serum Alcohol Crossmatch 03/22/20 03/23/20 03/23/20 16:48 01:00 06:54 WBC RBC Hgb Hct MCH RDW Plt Count Lymph % (Auto) [place] % (Auto) [place] # Baso # Seg Neutrophils % Seg Neuts % (Manual) Lymphocytes % (Manual) Monocytes % (Manual) Seg Neutrophils # Seg Neutrophils # Man Lymphocytes # (Manual) Monocytes # (Manual) Eosinophils # (Manual) Basophils # (Manual) PT INR APTT ABG pH ABG pO2 ABG HCO3 ABG O2 Saturation ABG Base Excess ABG Hemoglobin Oxyhemoglobin Sodium Potassium Chloride Carbon Dioxide BUN Creatinine Glucose POC Glucose 111 H 153 H 129 H Lactic Acid Calcium Ionized Calcium Phosphorus Magnesium Total Bilirubin AST ALT Alkaline Phosphatase Ammonia Total Creatine Kinase CK-MB (CK-2) CK-MB (CK-2) Rel Index Total Protein Albumin Urine WBC (Auto) Vancomycin Trough Salicylates Acetaminophen Plasma/Serum Alcohol Crossmatch 03/23/20 03/23/20 03/23/20 12:08 15:54 23:20 WBC RBC Hgb Hct MCH RDW Plt Count Lymph % (Auto) [place] % (Auto) [place] # Baso # Seg Neutrophils % Seg Neuts % (Manual) Lymphocytes % (Manual) Monocytes % (Manual) Seg Neutrophils # Seg Neutrophils # Man Lymphocytes # (Manual) Monocytes # (Manual) Eosinophils # (Manual) Basophils # (Manual) PT INR APTT ABG pH ABG pO2 ABG HCO3 ABG O2 Saturation ABG Base Excess ABG Hemoglobin Oxyhemoglobin Sodium Potassium Chloride Carbon Dioxide BUN Creatinine Glucose POC Glucose 126 H 142 H 115 H Lactic Acid Calcium Ionized Calcium Phosphorus Magnesium Total Bilirubin AST ALT Alkaline Phosphatase Ammonia Total Creatine Kinase CK-MB (CK-2) CK-MB (CK-2) Rel Index Total Protein Albumin Urine WBC (Auto) Vancomycin Trough Salicylates Acetaminophen Plasma/Serum Alcohol Crossmatch 03/24/20 03/24/20 03/24/20 06:33 12:19 16:46 WBC RBC Hgb Hct MCH RDW Plt Count Lymph % (Auto) [place] % (Auto) [place] # Baso # Seg Neutrophils % Seg Neuts % (Manual) Lymphocytes % (Manual) Monocytes % (Manual) Seg Neutrophils # Seg Neutrophils # Man Lymphocytes # (Manual) Monocytes # (Manual) Eosinophils # (Manual) Basophils # (Manual) PT INR APTT ABG pH ABG pO2 ABG HCO3 ABG O2 Saturation ABG Base Excess ABG Hemoglobin Oxyhemoglobin Sodium Potassium Chloride Carbon Dioxide BUN Creatinine Glucose POC Glucose 122 H 156 H 140 H Lactic Acid Calcium Ionized Calcium Phosphorus Magnesium Total Bilirubin AST ALT Alkaline Phosphatase Ammonia Total Creatine Kinase CK-MB (CK-2) CK-MB (CK-2) Rel Index Total Protein Albumin Urine WBC (Auto) Vancomycin Trough Salicylates Acetaminophen Plasma/Serum Alcohol Crossmatch 03/24/20 03/25/20 03/25/20 23:56 04:28 06:45 WBC RBC Hgb Hct MCH RDW Plt Count Lymph % (Auto) [place] % (Auto) [place] # Baso # Seg Neutrophils % Seg Neuts % (Manual) Lymphocytes % (Manual) Monocytes % (Manual) Seg Neutrophils # Seg Neutrophils # Man Lymphocytes # (Manual) Monocytes # (Manual) Eosinophils # (Manual) Basophils # (Manual) PT INR APTT ABG pH ABG pO2 ABG HCO3 ABG O2 Saturation ABG Base Excess ABG Hemoglobin Oxyhemoglobin Sodium Potassium Chloride Carbon Dioxide BUN 23 H Creatinine 0.5 L Glucose 121 H POC Glucose 127 H 130 H Lactic Acid Calcium 10.3 H Ionized Calcium Phosphorus Magnesium Total Bilirubin AST ALT Alkaline Phosphatase Ammonia Total Creatine Kinase CK-MB (CK-2) CK-MB (CK-2) Rel Index Total Protein Albumin Urine WBC (Auto) Vancomycin Trough Salicylates Acetaminophen Plasma/Serum Alcohol Crossmatch 03/25/20 03/25/20 03/26/20 12:50 15:57 05:39 WBC RBC Hgb Hct MCH RDW Plt Count Lymph % (Auto) [place] % (Auto) [place] # Baso # Seg Neutrophils % Seg Neuts % (Manual) Lymphocytes % (Manual) Monocytes % (Manual) Seg Neutrophils # Seg Neutrophils # Man Lymphocytes # (Manual) Monocytes # (Manual) Eosinophils # (Manual) Basophils # (Manual) PT INR APTT ABG pH ABG pO2 ABG HCO3 ABG O2 Saturation ABG Base Excess ABG Hemoglobin Oxyhemoglobin Sodium Potassium Chloride Carbon Dioxide BUN Creatinine Glucose POC Glucose 145 H 118 H 136 H Lactic Acid Calcium Ionized Calcium Phosphorus Magnesium Total Bilirubin AST ALT Alkaline Phosphatase Ammonia Total Creatine Kinase CK-MB (CK-2) CK-MB (CK-2) Rel Index Total Protein Albumin Urine WBC (Auto) Vancomycin Trough Salicylates Acetaminophen Plasma/Serum Alcohol Crossmatch 07/08/20 07/08/20 07/09/20 16:04 23:17 11:31 WBC RBC Hgb Hct MCH RDW Plt Count Lymph % (Auto) [place] % (Auto) [place] # Baso # Seg Neutrophils % Seg Neuts % (Manual) Lymphocytes % (Manual) Monocytes % (Manual) Seg Neutrophils # Seg Neutrophils # Man Lymphocytes # (Manual) Monocytes # (Manual) Eosinophils # (Manual) Basophils # (Manual) PT INR APTT ABG pH ABG pO2 ABG HCO3 ABG O2 Saturation ABG Base Excess ABG Hemoglobin Oxyhemoglobin Sodium Potassium Chloride Carbon Dioxide BUN Creatinine Glucose POC Glucose 157 H 157 H 121 H Lactic Acid Calcium Ionized Calcium Phosphorus Magnesium Total Bilirubin AST ALT Alkaline Phosphatase Ammonia Total Creatine Kinase CK-MB (CK-2) CK-MB (CK-2) Rel Index Total Protein Albumin Urine WBC (Auto) Vancomycin Trough Salicylates Acetaminophen Plasma/Serum Alcohol Crossmatch 03/27/20 03/28/20 03/28/20 16:33 01:55 12:12 WBC RBC Hgb Hct MCH RDW Plt Count Lymph % (Auto) [place] % (Auto) [place] # Baso # Seg Neutrophils % Seg Neuts % (Manual) Lymphocytes % (Manual) Monocytes % (Manual) Seg Neutrophils # Seg Neutrophils # Man Lymphocytes # (Manual) Monocytes # (Manual) Eosinophils # (Manual) Basophils # (Manual) PT INR APTT ABG pH ABG pO2 ABG HCO3 ABG O2 Saturation ABG Base Excess ABG Hemoglobin Oxyhemoglobin Sodium Potassium Chloride Carbon Dioxide BUN Creatinine Glucose POC Glucose 126 H 106 H 116 H Lactic Acid Calcium Ionized Calcium Phosphorus Magnesium Total Bilirubin AST ALT Alkaline Phosphatase Ammonia Total Creatine Kinase CK-MB (CK-2) CK-MB (CK-2) Rel Index Total Protein Albumin Urine WBC (Auto) Vancomycin Trough Salicylates Acetaminophen Plasma/Serum Alcohol Crossmatch 03/28/20 03/29/20 03/29/20 17:57 06:41 16:48 WBC RBC Hgb Hct MCH RDW Plt Count Lymph % (Auto) [place] % (Auto) [place] # Baso # Seg Neutrophils % Seg Neuts % (Manual) Lymphocytes % (Manual) Monocytes % (Manual) Seg Neutrophils # Seg Neutrophils # Man Lymphocytes # (Manual) Monocytes # (Manual) Eosinophils # (Manual) Basophils # (Manual) PT INR APTT ABG pH ABG pO2 ABG HCO3 ABG O2 Saturation ABG Base Excess ABG Hemoglobin Oxyhemoglobin Sodium Potassium Chloride Carbon Dioxide BUN Creatinine Glucose POC Glucose 138 H 154 H 136 H Lactic Acid Calcium Ionized Calcium Phosphorus Magnesium Total Bilirubin AST ALT Alkaline Phosphatase Ammonia Total Creatine Kinase CK-MB (CK-2) CK-MB (CK-2) Rel Index Total Protein Albumin Urine WBC (Auto) Vancomycin Trough Salicylates Acetaminophen Plasma/Serum Alcohol Crossmatch 03/30/20 03/30/20 03/31/20 05:44 12:16 16:37 WBC RBC Hgb Hct MCH RDW Plt Count Lymph % (Auto) [place] % (Auto) [place] # Baso # Seg Neutrophils % Seg Neuts % (Manual) Lymphocytes % (Manual) Monocytes % (Manual) Seg Neutrophils # Seg Neutrophils # Man Lymphocytes # (Manual) Monocytes # (Manual) Eosinophils # (Manual) Basophils # (Manual) PT INR APTT ABG pH ABG pO2 ABG HCO3 ABG O2 Saturation ABG Base Excess ABG Hemoglobin Oxyhemoglobin Sodium Potassium Chloride Carbon Dioxide BUN Creatinine Glucose POC Glucose 110 H 122 H 128 H Lactic Acid Calcium Ionized Calcium Phosphorus Magnesium Total Bilirubin AST ALT Alkaline Phosphatase Ammonia Total Creatine Kinase CK-MB (CK-2) CK-MB (CK-2) Rel Index Total Protein Albumin Urine WBC (Auto) Vancomycin Trough Salicylates Acetaminophen Plasma/Serum Alcohol Crossmatch 04/01/20 04/02/20 04/02/20 22:51 11:38 16:35 WBC RBC Hgb Hct MCH RDW Plt Count Lymph % (Auto) [place] % (Auto) [place] # Baso # Seg Neutrophils % Seg Neuts % (Manual) Lymphocytes % (Manual) Monocytes % (Manual) Seg Neutrophils # Seg Neutrophils # Man Lymphocytes # (Manual) Monocytes # (Manual) Eosinophils # (Manual) Basophils # (Manual) PT INR APTT ABG pH ABG pO2 ABG HCO3 ABG O2 Saturation ABG Base Excess ABG Hemoglobin Oxyhemoglobin Sodium Potassium Chloride Carbon Dioxide BUN Creatinine Glucose POC Glucose 132 H 128 H 108 H Lactic Acid Calcium Ionized Calcium Phosphorus Magnesium Total Bilirubin AST ALT Alkaline Phosphatase Ammonia Total Creatine Kinase CK-MB (CK-2) CK-MB (CK-2) Rel Index Total Protein Albumin Urine WBC (Auto) Vancomycin Trough Salicylates Acetaminophen Plasma/Serum Alcohol Crossmatch 04/05/20 04/11/20 04/11/20 00:16 12:27 15:54 WBC RBC Hgb Hct MCH RDW Plt Count Lymph % (Auto) [place] % (Auto) [place] # Baso # Seg Neutrophils % Seg Neuts % (Manual) Lymphocytes % (Manual) Monocytes % (Manual) Seg Neutrophils # Seg Neutrophils # Man Lymphocytes # (Manual) Monocytes # (Manual) Eosinophils # (Manual) Basophils # (Manual) PT INR APTT ABG pH ABG pO2 ABG HCO3 ABG O2 Saturation ABG Base Excess ABG Hemoglobin Oxyhemoglobin Sodium Potassium Chloride Carbon Dioxide BUN Creatinine Glucose POC Glucose 117 H 123 H 114 H Lactic Acid Calcium Ionized Calcium Phosphorus Magnesium Total Bilirubin AST ALT Alkaline Phosphatase Ammonia Total Creatine Kinase CK-MB (CK-2) CK-MB (CK-2) Rel Index Total Protein Albumin Urine WBC (Auto) Vancomycin Trough Salicylates Acetaminophen Plasma/Serum Alcohol Crossmatch 04/11/20 04/13/20 04/16/20 21:55 16:39 05:00 WBC RBC Hgb Hct MCH RDW Plt Count Lymph % (Auto) [place] % (Auto) [place] # Baso # Seg Neutrophils % Seg Neuts % (Manual) Lymphocytes % (Manual) Monocytes % (Manual) Seg Neutrophils # Seg Neutrophils # Man Lymphocytes # (Manual) Monocytes # (Manual) Eosinophils # (Manual) Basophils # (Manual) PT INR APTT ABG pH ABG pO2 ABG HCO3 ABG O2 Saturation ABG Base Excess ABG Hemoglobin Oxyhemoglobin Sodium Potassium 3.2 L Chloride 107.4 H Carbon Dioxide BUN Creatinine 0.4 L Glucose POC Glucose 126 H 112 H Lactic Acid Calcium Ionized Calcium Phosphorus Magnesium Total Bilirubin AST ALT Alkaline Phosphatase Ammonia Total Creatine Kinase CK-MB (CK-2) CK-MB (CK-2) Rel Index Total Protein Albumin Urine WBC (Auto) Vancomycin Trough Salicylates Acetaminophen Plasma/Serum Alcohol Crossmatch 04/16/20 09:02 WBC RBC Hgb Hct MCH RDW Plt Count 502 H Lymph % (Auto) [place] % (Auto) 7.4 H [place] # Baso # Seg Neutrophils % Seg Neuts % (Manual) Lymphocytes % (Manual) Monocytes % (Manual) Seg Neutrophils # Seg Neutrophils # Man Lymphocytes # (Manual) Monocytes # (Manual) Eosinophils # (Manual) Basophils # (Manual) PT INR APTT ABG pH ABG pO2 ABG HCO3 ABG O2 Saturation ABG Base Excess ABG Hemoglobin Oxyhemoglobin Sodium Potassium Chloride Carbon Dioxide BUN Creatinine Glucose POC Glucose Lactic Acid Calcium Ionized Calcium Phosphorus Magnesium Total Bilirubin AST ALT Alkaline Phosphatase Ammonia Total Creatine Kinase CK-MB (CK-2) CK-MB (CK-2) Rel Index Total Protein Albumin Urine WBC (Auto) Vancomycin Trough Salicylates Acetaminophen Plasma/Serum Alcohol Crossmatch Allied health notes reviewed: RT
[2020-04-20] MEDS: ENOXAPARIN 40 MG/0.4 ML INJ SUB-Q SCH (22:09)
--- NOTE | 2020-04-20 22:43 | Progress Note ---
Assessment and Plan Cardiopulmonary arrest outside the hospital; Status post CPR' Anoxic brain injury: suspected CT head: No acute abnormality. EEG ordered showed Generalized slowing. No seizures or epileptiform activity. -Patient now alert and awake responding appropriately -As needed haldol for agitation Acute metabolic encephalopathy/toxic encephalopathy due to the above - cont supportive care Acute Respiratory failure status post trach and PEG 12/13/2019 Tracheostomy site healed, site ulceration; resolved Anemia, microcytic - Status post 3 units PRBC transfusion, H&H low stable Hyperammonemia - likely from liver disease related to EtOH abuse - Patient had elevated ammonia level and treated with lactulose Metabolic Acidosis -Alcohol ketoacidosis vs hypoprofusion -Continue to monitor ELevated LFTs, stable now - due to ischemic hepatitis. Leucocytosis with sepsis - Source MRSA bacteremia and MSSA pneumonia. UA showed pyuria. RUQ US showed no ascites. - Repeat TTE negative for vegetation. Completed 7 days of Ceftriaxone on 020. -Treated with Abx vancomycin 1 gm IV q 12 hour total 2 week till 12/30/2019 Severe protein calorie malnutrition Dietitian following MSSA pneumonia: Status post vancomycin till 12/30/2019 Alcohol use Disorder - given ongoing Alcohol use almost daily, s/p IV Thiamine - monitor Severe hypokalemia -Repleted Seizure disorder: treated with Keppra H. Influenzae, tracheobronchitis, treated with abx Moderate to severe fecal impaction - will add stool softner DNR CODE STATUS Awaiting placement 03/25/2020. Patient is s/p cardiac arrest, extubated and decannulated with stoma healing. Await placement per case management. 03/26/2020. Awaiting placement. 03/27/2020. Continue to work with case management for placement. Patient requiring restraints for safety. 04/06/20; patient remains in restraints secondary to agitation confusion and risk of fall, awaiting placement 04/07/20; patient clinically stable, awaiting placement 04/09/20; patient remains confused, agitated requiring restraints for safety, awaiting placement 04/10/20 patient remains confused which is his baseline waiting for placement- 04/11/2020 patient waiting for placement- 04/12/2020 through 04/20/2020 Waiting for placement Subjective Date of service: 04/20/20 Principal diagnosis: Ac cardiopulmonary arrest; Ac hypoxemic resp failure; Acute encephalopathy Interval history: 54-year-old female with a past medical history of Hypertension, Depression, Tobacco use Disorder, Alcohol use Disorder as confirmed by Daughter and pt's mother presents to the hospital status post cardiac arrest. Patient is from home and family called EMS at 22: 27 for the pt who had told family members that she was not feeling good and c/o her chronic hip pain. She urinated and then was speaking, then she " froze and was rigid " per daughter and she became unresponsive and stopped breathing. Immediately, family began CPR. EMS found pt in PEA. Upon their arrival patient in SinuS Tachycardia.. They were unable to intubate patient with a ET tube because she was clenching down therefore Joe airway placed. Patient received Narcan and Epinephrine. Patient's rhythm changed to PEA to sinus bradycardia, to PEA, then to sinus tach after receiving Narcan and Epinephrine. Per the ED physician who evaluated pt, Patient presente d with a pulse, intermittent respirations, and bagging support via Joe airway with O2 sat of 100%. Accu-Chek of 71 obtained by EMS Spoke to patient's family (daughter and mother). MOther is Anh Jesus- [phone] and she would like to be called about pt's progress or notified about the pt.. No seizure activity was noted. They deny that patient had any preceding infection symptoms, cough, fever, complaints of chest pain, shortness of breath, or any bleeding diathesis, melena, hematochezia, hematuria, hematemesis, or abdominal pain. Patient is a known alcoholic and continues to drink per daughter. No history could be obtained from the pt due to her mechanical ventilation. No previous hx of DVT/PE per mother and daughter. Patient was extubated Patient waiting for placement Objective - Constitutional Vitals: Vital Signs - 12hr 04/20/20 04/20/20 04/20/20 11:30 16:51 19:33 Temperature 98.2 F 98.5 F 98.0 F Pulse Rate 67 103 H 96 H Respiratory 20 20 Rate Blood Pressure 130/83 144/93 Blood Pressure 128/67 [Left] O2 Sat by Pulse 94 95 Oximetry General appearance: Present: no acute distress, well-nourished - EENT Eyes: PERRL, EOM intact ENT: hearing intact, clear oral mucosa Ears: bilateral: normal - Neck Neck: supple, normal ROM - Respiratory Respiratory effort: normal Respiratory: bilateral: CTA - Breasts Breasts: normal - Cardiovascular Rhythm: regular Heart Sounds: Present: S1 & S2. Absent: gallop, rub Extremities: pulses intact, No edema, normal color, Full ROM - Gastrointestinal General gastrointestinal: Present: soft, non-tender, non-distended, normal bowel sounds - Genitourinary Female genitourinary: normal - Integumentary Integumentary: clear, warm, dry - Musculoskeletal Musculoskeletal: 1, strength equal bilaterally - Neurologic Neurologic: moves all extremities - Psychiatric Psychiatric: memory intact, appropriate mood/affect, intact judgment & insight - Labs CBC & Chem 7: 04/16/20 09:02 04/16/20 05:00 HEART Score - HEART Score Troponin: Troponin T < 0.010 ng/mL (0.00-0.029) 11/22/19 23:27
[2020-04-21] MEDS: levETIRAcetam 500 MG/5 ML ORAL LIQD PO SCH ×2 (09:45→22:27)
[2020-04-21] MEDS: SERTRALINE 50 MG TAB PO SCH (09:45)
[2020-04-21] MEDS: MIRTAZAPINE 30 MG TAB PO SCH (09:46)
[2020-04-21] MEDS: LANSOPRAZOLE 30 MG SOLUTAB FEEDTUBE SCH (09:46)
[2020-04-21] MEDS: QUEtiapine 100 MG TAB FEEDTUBE SCH ×2 (09:46→22:27)
[2020-04-21] MEDS: NICOTINE 21 MG/24 HR PATCH TD SCH (09:46)
[2020-04-21] MEDS: GLYCOPYRROLATE 1 MG TAB PO SCH ×3 (09:46→21:45)
[2020-04-21] MEDS: hydrOXYzine PAMOATE 25 MG CAP PO SCH ×2 (09:47→22:27)
--- NOTE | 2020-04-21 21:44 | Progress Note ---
Assessment and Plan Cardiopulmonary arrest outside the hospital; Status post CPR' Anoxic brain injury: suspected CT head: No acute abnormality. EEG ordered showed Generalized slowing. No seizures or epileptiform activity. -Patient now alert and awake responding appropriately -As needed haldol for agitation Acute metabolic encephalopathy/toxic encephalopathy due to the above - cont supportive care Acute Respiratory failure status post trach and PEG 12/13/2019 Tracheostomy site healed, site ulceration; resolved Anemia, microcytic - Status post 3 units PRBC transfusion, H&H low stable Hyperammonemia - likely from liver disease related to EtOH abuse - Patient had elevated ammonia level and treated with lactulose Metabolic Acidosis -Alcohol ketoacidosis vs hypoprofusion -Continue to monitor ELevated LFTs, stable now - due to ischemic hepatitis. Leucocytosis with sepsis - Source MRSA bacteremia and MSSA pneumonia. UA showed pyuria. RUQ US showed no ascites. - Repeat TTE negative for vegetation. Completed 7 days of Ceftriaxone on 020. -Treated with Abx vancomycin 1 gm IV q 12 hour total 2 week till 12/30/2019 Severe protein calorie malnutrition Dietitian following MSSA pneumonia: Status post vancomycin till 12/30/2019 Alcohol use Disorder - given ongoing Alcohol use almost daily, s/p IV Thiamine - monitor Severe hypokalemia -Repleted Seizure disorder: treated with Keppra H. Influenzae, tracheobronchitis, treated with abx Moderate to severe fecal impaction - will add stool softner DNR CODE STATUS Awaiting placement 03/25/2020. Patient is s/p cardiac arrest, extubated and decannulated with stoma healing. Await placement per case management. 03/26/2020. Awaiting placement. 03/27/2020. Continue to work with case management for placement. Patient requiring restraints for safety. 04/06/20; patient remains in restraints secondary to agitation confusion and risk of fall, awaiting placement 04/07/20; patient clinically stable, awaiting placement 04/09/20; patient remains confused, agitated requiring restraints for safety, awaiting placement 04/10/20 patient remains confused which is his baseline waiting for placement-- 04/17/2020 patient waiting for placement 04/21/2020 Patient waiting for placement, discussed with case management Subjective Date of service: 04/21/20 Principal diagnosis: Ac cardiopulmonary arrest; Ac hypoxemic resp failure; Acute encephalopathy Interval history: 54-year-old female with a past medical history of Hypertension, Depression, Tobacco use Disorder, Alcohol use Disorder as confirmed by Daughter and pt's mother presents to the hospital status post cardiac arrest. Patient is from home and family called EMS at 22: 27 for the pt who had told family members that she was not feeling good and c/o her chronic hip pain. She urinated and then was speaking, then she " froze and was rigid " per daughter and she became unresponsive and stopped breathing. Immediately, family began CPR. EMS found pt in PEA. Upon their arrival patient in SinuS Tachycardia.. They were unable to intubate patient with a ET tube because she was clenching down therefore Joe airway placed. Patient received Narcan and Epinephrine. Patient's rhythm changed to PEA to sinus bradycardia, to PEA, then to sinus tach after receiving Narcan and Epinephrine. Per the ED physician who evaluated pt, Patient presented with a pulse, intermittent respirations, and bagging support via Joe airway with O2 sat of 100%. Accu-Chek of 71 obtained by EMS Spoke to patient's family (daughter and mother). MOther is Anh Jesus- [phone] and she would like to be called about pt's progress or notified about the pt.. No seizure activity was noted. They deny that patient had any preceding infection symptoms, cough, fever, complaints of chest pain, shortness of breath, or any bleeding diathesis, melena, hematochezia, hematuria, hematemesis, or abdominal pain. Patient is a known alcoholic and continues to drink per daughter. No history could be obtained from the pt due to her mechanical ventilation. No previous hx of DVT/PE per mother and daughter. Patient waiting for placement Objective - Constitutional Vitals: Vital Signs - 12hr 04/21/20 04/21/20 04/21/20 11:43 16:18 20:38 Temperature 96.4 F L 97.8 F 97.9 F Pulse Rate 85 88 94 H Respiratory 17 17 24 Rate Blood Pressure 155/99 137/83 143/90 O2 Sat by Pulse 100 100 100 Oximetry General appearance: Present: no acute distress, well-nourished - EENT Eyes: PERRL, EOM intact ENT: hearing intact, clear oral mucosa Ears: bilateral: normal - Neck Neck: supple, normal ROM - Respiratory Respiratory effort: normal Respiratory: bilateral: CTA - Breasts Breasts: normal - Cardiovascular Heart rate: 78 Rhythm: regular Heart Sounds: Present: S1 & S2. Absent: gallop, rub Extremities: pulses intact, No edema, normal color, Full ROM - Gastrointestinal General gastrointestinal: Present: soft, non-tender, non-distended, normal bowel sounds - Genitourinary Female genitourinary: normal - Integumentary Integumentary: clear, warm, dry - Musculoskeletal Musculoskeletal: 1, strength equal bilaterally - Neurologic Neurologic: moves all extremities - Psychiatric Psychiatric: memory intact, appropriate mood/affect, intact judgment & insight - Labs CBC & Chem 7: 04/16/20 09:02 04/16/20 05:00 HEART Score - HEART Score Troponin: Troponin T < 0.010 ng/mL (0.00-0.029) 11/22/19 23:27
[2020-04-21] MEDS: ENOXAPARIN 40 MG/0.4 ML INJ SUB-Q SCH (22:27)
[2020-04-22] MEDS: HALOPERIDOL LACTATE 5 MG/1 ML INJ IM PRN ×2 (00:31→20:17)
[2020-04-22] MEDS: LANSOPRAZOLE 30 MG SOLUTAB FEEDTUBE SCH (09:58)
[2020-04-22] MEDS: QUEtiapine 100 MG TAB FEEDTUBE SCH ×2 (09:58→21:38)
[2020-04-22] MEDS: NICOTINE 21 MG/24 HR PATCH TD SCH (09:58)
[2020-04-22] MEDS: levETIRAcetam 500 MG/5 ML ORAL LIQD PO SCH ×2 (09:58→21:38)
[2020-04-22] MEDS: GLYCOPYRROLATE 1 MG TAB PO SCH ×3 (09:59→21:37)
[2020-04-22] MEDS: hydrOXYzine PAMOATE 25 MG CAP PO SCH ×2 (09:59→21:37)
[2020-04-22] MEDS: MIRTAZAPINE 30 MG TAB PO SCH (09:59)
[2020-04-22] MEDS: SERTRALINE 50 MG TAB PO SCH (10:00)
--- NOTE | 2020-04-22 13:44 | Progress Note ---
Assessment and Plan - Patient Problems (1) Anoxic brain injury Current Visit: Yes Status: Acute Plan to address problem: Supportive care, continue current therapy. Aspiration precautions, seizure precautions. (2) Anoxic encephalopathy Current Visit: Yes Status: Acute Plan to address problem: Supportive care, aspiration precautions, seizure precautions, supportive care. (3) Acute respiratory failure Current Visit: Yes Status: Acute Qualifiers: Respiratory failure complication: hypoxia Qualified Code(s): J96.01 - Acute respiratory failure with hypoxia Plan to address problem: Patient is status post tracheostomy and PEG tube placement. Continue supplemental oxygen. (4) Seizure disorder Current Visit: Yes Status: Acute Plan to address problem: Continue Keppra therapy, seizure precautions, supportive care. (5) DVT prophylaxis Current Visit: Yes Status: Acute Plan to address problem: SCD to bilateral lower extremities while in bed, prophylactic Lovenox (6) Advance care planning Current Visit: Yes Status: Acute Plan to address problem: Patient is DNR, supportive care, discharge planning conducted, discussed with case management. +30 minutes. History Interval history: 55 YO Female with TATIANA S/P Cardiac Arrest, Anoxic Encephalopathy, Severe Malnutrition, Acute/Chronic Respiratory Failure S/P Trach and Peg placement who is currently pending placement. Patient is resting comfortably in bed. No acute decompensation overnight. No reported nursing events. Case management consulted for discharge planning/placement. Hospitalist Physical - Constitutional Vitals: Temp Pulse Resp BP Pulse Ox 98.0 F 96 H 19 131/84 100 04/21/20 23:42 04/21/20 23:42 04/22/20 08:29 04/21/20 23:42 04/21/20 23:42 General appearance: Present: no acute distress, well-nourished - EENT Eyes: Present: PERRL ENT: hearing decreased - Neck Neck: Present: supple - Respiratory Respiratory effort: normal Respiratory: bilateral: diminished - Cardiovascular Rhythm: regular Heart Sounds: Present: S1 & S2 - Extremities Extremities: no ischemia Peripheral Pulses: within normal limits - Abdominal General gastrointestinal: soft, non-tender, non-distended, other (PEG tube in place) - Integumentary Integumentary: Present: clear, dry - Psychiatric Psychiatric: cooperative - Neurologic Neurologic: no gait normal HEART Score - HEART Score Troponin: Troponin T < 0.010 ng/mL (0.00-0.029) 11/22/19 23:27 Results - Labs CBC & Chem 7: 04/16/20 09:02 04/16/20 05:00 Labs: Laboratory Last Values WBC 6.7 K/mm3 (4.5-11.0) 04/16/20 09:02 RBC 4.13 M/mm3 (3.65-5.03) 04/16/20 09:02 Hgb 11.8 gm/dl (10.1-14.3) 04/16/20 09:02 Hct 37.0 % (30.3-42.9) 04/16/20 09:02 MCV 90 fl (79-97) 04/16/20 09:02 MCH 29 pg (28-32) 04/16/20 09:02 MCHC 32 % (30-34) 04/16/20 09:02 RDW 14.3 % (13.2-15.2) 04/16/20 09:02 Plt Count 502 K/mm3 (140-440) H 04/16/20 09:02 Lymph % (Auto) 25.9 % (13.4-35.0) 04/16/20 09:02 [place] % (Auto) 7.4 % (0.0-7.3) H 04/16/20 09:02 Eos % (Auto) 0.9 % (0.0-4.3) 04/16/20 09:02 Baso % (Auto) 0.8 % (0.0-1.8) 04/16/20 09:02 Lymph # 1.7 K/mm3 (1.2-5.4) 04/16/20 09:02 [place]re # 0.5 K/mm3 (0.0-0.8) 04/16/20 09:02 Eos # 0.1 K/mm3 (0.0-0.4) 04/16/20 09:02 Baso # 0.1 K/mm3 (0.0-0.1) 04/16/20 09:02 Add Manual Diff Complete 12/25/19 03:47 Total Counted 200 12/25/19 03:47 Seg Neutrophils % 65.0 % (40.0-70.0) 04/16/20 09:02 Seg Neuts % (Manual) 97.5 % (40.0-70.0) H 12/25/19 03:47 Band Neutrophils % 0 % 12/25/19 03:47 Lymphocytes % (Manual) 1.0 % (13.4-35.0) L 12/25/19 03:47 Reactive Lymphs % (Man) 0 % 12/25/19 03:47 Monocytes % (Manual) 1.5 % (0.0-7.3) 12/25/19 03:47 Eosinophils % (Manual) 0 % (0.0-4.3) 12/25/19 03:47 Basophils % (Manual) 0 % (0.0-1.8) 12/25/19 03:47 Metamyelocytes % 0 % 12/25/19 03:47 Myelocytes % 0 % 12/25/19 03:47 Promyelocytes % 0 % 12/25/19 03:47 Blast Cells % 0 % 12/25/19 03:47 Nucleated RBC % Not Reportable 12/25/19 03:47 Seg Neutrophils # 4.4 K/mm3 (1.8-7.7) 04/16/20 09:02 Seg Neutrophils # Man 35.3 K/mm3 (1.8-7.7) H 12/25/19 03:47 Band Neutrophils # 0.0 K/mm3 12/25/19 03:47 Lymphocytes # (Manual) 0.4 K/mm3 (1.2-5.4) L 12/25/19 03:47 Abs React Lymphs (Man) 0.0 K/mm3 12/25/19 03:47 Monocytes # (Manual) 0.5 K/mm3 (0.0-0.8) 12/25/19 03:47 Eosinophils # (Manual) 0.0 K/mm3 (0.0-0.4) 12/25/19 03:47 Basophils # (Manual) 0.0 K/mm3 (0.0-0.1) 12/25/19 03:47 Metamyelocytes # 0.0 K/mm3 12/25/19 03:47 Myelocytes # 0.0 K/mm3 12/25/19 03:47 Promyelocytes # 0.0 K/mm3 12/25/19 03:47 Blast Cells # 0.0 K/mm3 12/25/19 03:47 Pathologist Review 12/13/19 07:48 WBC Morphology Not Reportable 12/25/19 03:47 Hypersegmented Neuts Not Reportable 12/25/19 03:47 Hyposegmented Neuts Not Reportable 12/25/19 03:47 Hypogranular Neuts Not Reportable 12/25/19 03:47 Smudge Cells Not Reportable 12/25/19 03:47 Toxic Granulation Not Reportable 12/25/19 03:47 Toxic Vacuolation Not Reportable 12/25/19 03:47 Dohle Bodies Not Reportable 12/25/19 03:47 Pelger-Huet Anomaly Not Reportable 12/25/19 03:47 Dominique Rods Not Reportable 12/25/19 03:47 Platelet Estimate Consistent w auto 12/25/19 03:47 Clumped Platelets Not Reportable 12/25/19 03:47 Plt Clumps, EDTA Not Reportable 12/25/19 03:47 Large Platelets Not Reportable 12/25/19 03:47 Giant Platelets Not Reportable 12/25/19 03:47 Platelet Satelliting Not Reportable 12/25/19 03:47 Plt Morphology Comment Not Reportable 12/25/19 03:47 RBC Morphology Not Reportable 12/25/19 03:47 Dimorphic RBCs Not Reportable 12/25/19 03:47 Polychromasia Not Reportable 12/25/19 03:47 Hypochromasia Not Reportable 12/25/19 03:47 Poikilocytosis Not Reportable 12/25/19 03:47 Anisocytosis 1+ 12/25/19 03:47 Microcytosis Not Reportable 12/25/19 03:47 Macrocytosis Not Reportable 12/25/19 03:47 Spherocytes Not Reportable 12/25/19 03:47 Pappenheimer Bodies Not Reportable 12/25/19 03:47 Sickle Cells Not Reportable 12/25/19 03:47 Target Cells Not Reportable 12/25/19 03:47 Tear Drop Cells Not Reportable 12/25/19 03:47 Ovalocytes Not Reportable 12/25/19 03:47 Helmet Cells Not Reportable 12/25/19 03:47 Frias-Ravalli Bodies Not Reportable 12/25/19 03:47 Osseo Rings Not Reportable 12/25/19 03:47 Mena Cells Not Reportable 12/25/19 03:47 Bite Cells Not Reportable 12/25/19 03:47 Crenated Cell Not Reportable 12/25/19 03:47 Elliptocytes Not Reportable 12/25/19 03:47 Acanthocytes (Spur) Not Reportable 12/25/19 03:47 Rouleaux Not Reportable 12/25/19 03:47 Hemoglobin C Crystals Not Reportable 12/25/19 03:47 Schistocytes Not Reportable 12/25/19 03:47 Malaria parasites Not Reportable 12/25/19 03:47 Gregg Bodies Not Reportable 12/25/19 03:47 Hem Pathologist Commnt No 12/25/19 03:47 PT 17.0 Sec. (12.2-14.9) H 11/23/19 03:47 INR 1.36 (0.87-1.13) H 11/23/19 03:47 APTT 128.2 Sec. (24.2-36.6) H* 11/23/19 03:47 Heparin Anti-Xa Level 0.31 U.I./ml (0.3-0.7) 11/23/19 09:03 ABG pH 7.433 pH Units (7.350-7.450) 03/08/20 13:25 ABG pCO2 40.2 mm Hg 03/08/20 13:25 ABG pO2 71.1 mm Hg (80.0-90.0) L 03/08/20 13:25 ABG HCO3 26.2 mmol/L (20.0-26.0) H 03/08/20 13:25 ABG O2 Saturation 97.0 % (95.0-99.0) 03/08/20 13:25 ABG O2 Content 11.0 (0.0-44) 03/08/20 13:25 ABG Base Excess 1.8 mmol/L (-2.0-3.0) 03/08/20 13:25 ABG Hemoglobin 8.2 gm/dl (12.0-16.0) L 03/08/20 13:25 ABG Carboxyhemoglobin 1.7 % (0.0-5.0) 03/08/20 13:25 ABG Methemoglobin 0.5 % (0.0-1.5) 03/08/20 13:25 Oxyhemoglobin 94.8 % (95.0-99.0) L 03/08/20 13:25 FiO2 21 % 03/08/20 13:25 Sodium 144 mmol/L (137-145) 04/16/20 05:00 Potassium 3.2 mmol/L (3.6-5.0) L 04/16/20 05:00 Chloride 107.4 mmol/L (98-107) H 04/16/20 05:00 Carbon Dioxide 23 mmol/L (22-30) 04/16/20 05:00 Anion Gap 17 mmol/L 04/16/20 05:00 BUN 16 mg/dL (7-17) 04/16/20 05:00 Creatinine 0.4 mg/dL (0.7-1.2) L 04/16/20 05:00 Estimated GFR > 60 ml/min 04/16/20 05:00 BUN/Creatinine Ratio 40 % 04/16/20 05:00 Glucose 73 mg/dL (65-100) 04/16/20 05:00 POC Glucose 112 (70-105) H 04/13/20 16:39 Lactic Acid 1.80 mmol/L (0.7-2.0) 11/25/19 05:05 Calcium 10.0 mg/dL (8.4-10.2) 04/16/20 05:00 Ionized Calcium 4.5 mg/dL (4.8-5.6) L 11/23/19 06:32 Phosphorus 4.20 mg/dL (2.5-4.5) D 11/28/19 08:59 Magnesium 1.90 mg/dL (1.7-2.3) 02/28/20 03:40 Total Bilirubin 0.40 mg/dL (0.1-1.2) 12/13/19 07:48 AST 27 units/L (5-40) 12/13/19 07:48 ALT 26 units/L (7-56) 12/13/19 07:48 Alkaline Phosphatase 316 units/L (35-129) H 12/13/19 07:48 Ammonia 42.0 umol/L (25-60) 11/29/19 13:41 Total Creatine Kinase 139 units/L (30-135) H 11/22/19 23:27 CK-MB (CK-2) 8.3 ng/mL (0.0-4.0) H 11/22/19 23:27 CK-MB (CK-2) Rel Index 5.9 (0-4) H 11/22/19 23:27 Troponin T < 0.010 ng/mL (0.00-0.029) 11/22/19 23:27 Total Protein 6.8 g/dL (6.3-8.2) 12/13/19 07:48 Albumin 2.4 g/dL (3.9-5) L 12/13/19 07:48 Albumin/Globulin Ratio 0.5 % 12/13/19 07:48 Lipase 18 units/L (13-60) 11/23/19 00:34 Procalcitonin 1.09 ng/mL (<0.15) 11/23/19 04:53 TSH 1.010 mlU/mL (0.270-4.200) 02/12/20 07:36 Free T4 1.08 ng/dL (0.76-1.46) 02/12/20 07:36 Urine Color Yellow (Yellow) 12/16/19 Unknown Urine Turbidity Slightly-cloudy (Clear) 12/16/19 Unknown Urine pH 5.0 (5.0-7.0) 12/16/19 Unknown Ur Specific [place] 1.018 (1.003-1.030) 12/16/19 Unknown Urine Protein 30 mg/dl mg/dL (Negative) 12/16/19 Unknown Urine Glucose (UA) Neg mg/dL (Negative) 12/16/19 Unknown Urine Ketones Neg mg/dL (Negative) 12/16/19 Unknown Urine Blood Sm (Negative) 12/16/19 Unknown Urine Nitrite Neg (Negative) 12/16/19 Unknown Urine Bilirubin Neg (Negative) 12/16/19 Unknown Urine Urobilinogen < 2.0 mg/dL (<2.0) 12/16/19 Unknown Ur Leukocyte Esterase Neg (Negative) 12/16/19 Unknown Urine WBC (Auto) 6.0 /HPF (0.0-6.0) 12/16/19 Unknown Urine RBC (Auto) 9.0 /HPF (0.0-6.0) 12/16/19 Unknown U Epithel Cells (Auto) < 1.0 /HPF (0-13.0) 12/16/19 Unknown Urine Bacteria (Auto) 2+ /HPF (Negative) 11/22/19 23:17 Hyaline Casts 3 /LPF 12/16/19 Unknown Granular Casts 3 /LPF 12/16/19 Unknown Urine Mucus Few /HPF 12/16/19 Unknown Vancomycin Trough 33.8 ug/mL (5.0-20.0) H 12/21/19 08:56 Random Vancomycin 16.2 ug/mL (0-40.0) 12/24/19 04:31 Salicylates < 0.3 mg/dL (2.8-20.0) L 11/22/19 23:27 Urine Opiates Screen Presumptive negative 11/22/19 23:17 Urine Methadone Screen Presumptive negative 11/22/19 23:17 Acetaminophen < 5.0 ug/mL (10.0-30.0) L 11/22/19 23:27 Ur Barbiturates Screen Presumptive negative 11/22/19 23:17 Ur Phencyclidine Scrn Presumptive negative 11/22/19 23:17 Ur Amphetamines Screen Presumptive negative 11/22/19 23:17 U Benzodiazepines Scrn Presumptive negative 11/22/19 23:17 Urine Cocaine Screen Presumptive negative 11/22/19 23:17 U Marijuana (THC) Screen Presumptive negative 11/22/19 23:17 Drugs of Abuse Note Disclamer 11/22/19 23:17 Plasma/Serum Alcohol 0.08 % (0-0.07) H 11/22/19 23:27 Coronavirus (PCR) Negative (Negative) 02/05/20 07:50 Hepatitis A IgM Ab Non-reactive (NonReactive) 11/23/19 01:19 Hep Bs Antigen Non-reactive (Negative) 11/23/19 01:19 Hep B Core IgM Ab Non-reactive (NonReactive) 11/23/19 01:19 Hepatitis C Antibody Non-reactive (NonReactive) 11/23/19 01:19 Blood Type O POSITIVE 12/21/19 14:54 Antibody Screen Negative 12/21/19 14:54 Crossmatch See Detail 12/21/19 14:54 - Diagnostic Impressions Diagnostic Impressions: Echocardiogram 11/23/19 03:58 Transthoracic Echocardiogram Indication: Cardiac arrest BP: 131/89 HR: 115 Conclusions *The study quality is technically difficult. *Global left ventricular wall motion and contractility are within normal limits. *The estimated ejection fraction is 55-60%. *Abnormal left ventricular diastolic filling is observed, consistent with impaired relaxation. *There is no pericardial effusion. Findings Procedure Info: The study quality is technically difficult. The study was technically limited due to the patient's inability to lay in the left lateral decubitus position. Left Ventricle: The left ventricular chamber size is normal. There is no left ventricular hypertrophy. Global left ventricular wall motion and contractility are within normal limits. Global left ventricular systolic function is normal. The estimated ejection fraction is 55-60%. Abnormal left ventricular diastolic filling is observed, consistent with impaired relaxation. Left Atrium: The left atrial chamber size is normal. Aortic Valve: The aortic valve leaflets are mildly thickened. Mitral Valve: The mitral valve leaflets are mildly thickened. There is no evidence of mitral regurgitation. Tricuspid Valve: The tricuspid valve leaflets are normal. There is trace tricuspid regurgitation. The right ventricular systolic pressure is calculated at 33 mmHg. Pulmonic Valve: The pulmonic valve appears normal. Pericardium: The pericardium appears normal. There is no pericardial effusion. Aorta: The aorta appears normal. Venous: The inferior vena cava appears normal in size. Measurements Chambers 2D Name Value Normal Range IVSd (2D) 0.94 cm (0.6 - 1.1) LVPWd (2D) 0.81 cm (0.6 - 1.1) LVIDd (2D) 3.6 cm (3.7 - 5.6) LVIDs (2D) 2.27 cm (2 - 3.8) LV FS (2D) 36.93 % - EF Teichholz (2D) 67.76 % - Ao root diameter (2D) 3.03 cm (2 - 3.7) Volumes/Mass Name Value Normal Range LA ESV SP 4CH (A/L) 16.89 ml - LA ESV SP 4CH (MOD) 15.52 ml - Diastolic/Systolic Function Name Value Normal Range MV E-wave Vmax 0.55 m/sec - MV deceleration time 200.89 msec - MV A-wave Vmax 0.68 m/sec - MV E:A ratio 0.82 ratio - Aortic Valve Name Value Normal Range AV Vmax 1.1 m/sec - AV VTI 15.9 cm - AV peak gradient 4.86 mmHg - AV mean gradient 2.59 mmHg - LVOT diameter 2 cm - LVOT Vmax 1.03 m/sec - LVOT VTI 15.87 cm - LVOT peak gradient 4.24 mmHg - LVOT mean gradient 2.41 mmHg - SV LVOT 49.77 ml - JOSÉ MIGUEL (continuity Vmax) 2.93 cm2 - JOSÉ MIGUEL (continuity VTI) 3.13 cm2 - Tricuspid Valve Name Value Normal Range TR Vmax 2.74 m/sec - TR peak gradient 303 mmHg - RAP 3 mmHg - RVSP 33 mmHg - IVC diameter 1.77 cm (1.2 - 2.3) Pulmonic Valve/Qp:Qs Name Value Normal Range PV Vmax 0.77 m/sec - PV peak gradient 2.4 mmHg - PV acceleration time 114.18 msec - Echocardiogram Limited Views 12/17/19 14:53 Transthoracic Echocardiogram Indication: R/O Vegetations BP: 144/83 HR: 133 Conclusions *Global left ventricular systolic function is mildly decreased. *The estimated ejection fraction is 45-50%. *A trivial pericardial effusion is visualized. Findings Left Ventricle: The left ventricular chamber size is normal. Global left ventricular systolic function is mildly decreased. The estimated ejection fraction is 45-50%. Left Atrium: The left atrial chamber size is normal. Right Ventricle: The right ventricular cavity size is normal. Right Atrium: The right atrial cavity size is normal. Aortic Valve: The aortic valve is not well visualized. There is no evidence of aortic regurgitation. Mitral Valve: The mitral valve leaflets are mildly thickened. There is trace of mitral regurgitation. Tricuspid Valve: The tricuspid valve leaflets are mildly thickened. There is trace tricuspid regurgitation. The right ventricular systolic pressure is calculated at 29 mmHg. Pulmonic Valve: The pulmonic valve is not well visualized. There is no evidence of pulmonic regurgitation. Pericardium: A trivial pericardial effusion is visualized. Aorta: There is no dilatation of the ascending aorta. There is no dilatation of the aortic root. Venous: The inferior vena cava appears normal in size. There is a greater than 50% respiratory change in the inferior vena cava dimension. Measurements Chambers 2D Name Value Normal Range IVSd (2D) 0.83 cm (0.6 - 1.1) LVPWd (2D) 0.98 cm (0.6 - 1.1) LVIDd (2D) 3.71 cm (3.7 - 5.6) LVIDs (2D) 2.93 cm (2 - 3.8) LV FS (2D) 21.12 % - EF Teichholz (2D) 43.71 % - Ao root diameter (2D) 3.02 cm (2 - 3.7) Volumes/Mass Name Value Normal Range LA ESV SP 4CH (A/L) 36.8 ml - LA ESV SP 2CH (A/L) 45.89 ml - LA ESV BP (A/L) 42.35 ml - LA ESV BP (A/L) index 26.63 ml/m2 - LA ESV SP 4CH (MOD) 34.42 ml - LA ESV SP 2CH (MOD) 44.21 ml - LA ESV BP (MOD) 39.82 ml - LA ESV BP (MOD) index 25.05 ml/m2 - Aortic Valve Name Value Normal Range LVOT diameter 1.63 cm - Tricuspid Valve Name Value Normal Range TR Vmax 2.56 m/sec - TR peak gradient 26 mmHg - RAP 3 mmHg - RVSP 29 mmHg - IVC diameter 1.83 cm (1.2 - 2.3) Del[place]/IV: Voiding Method Incontinent IV Catheter Type [Forearm] Peripheral IV IV Catheter Type [Left Forearm INT / Saline Lock ] IV Catheter Type [Right INT / Saline Lock Antecubital] IV Catheter Type [Right Hand] INT / Saline Lock IV Catheter Type [Right Wrist] Peripheral IV IV Catheter Type [Left Wrist] Peripheral IV IV Catheter Type [Left Peripheral IV Antecubital] IV Catheter Type [Right INT / Saline Lock Forearm] IV Catheter Type [Left Hand] INT / Saline Lock Active Medications - Current Medications Current Medications: Generic Name Dose Route Start Last Admin Trade Name Luh PRN Reason Stop Dose Admin Albuterol 2.5 mg 03/25/20 19:25 04/07/20 08:59 Proventil IH 2.5 mg Q4HRT PRN Administration Shortness Of Breath Lipase/Protease/Amylase 1 each 11/23/19 11:[address] 10,500 Unit FEEDTUBE PRN PRN Use w/ sod bicarb for FT Bisacodyl 10 mg 02/06/20 13:57 Dulcolax CO QDAY PRN Constipation unrelieved by MOM Enoxaparin Sodium 40 mg 03/07/20 22:00 04/21/20 22:27 Enoxaparin SUB-Q 40 mg QDAY@2200 LUCHO Administration Glycopyrrolate 2 mg 12/31/19 20:00 04/22/20 09:59 Robinul PO 2 mg TID LUCHO Administration Haloperidol Lactate 5 mg 03/05/20 09:22 04/22/20 00:31 Haldol IM 5 mg Q6H PRN Administration Agitation Hydroxyzine Pamoate 25 mg 12/06/19 10:00 04/22/20 09:59 Vistaril PO 25 mg BID LUCHO Administration Lansoprazole 30 mg 11/27/19 10:00 04/22/20 09:58 Prevacid Solutab FEEDTUBE 30 mg QDAY LUCHO Administration Levetiracetam 500 mg 11/29/19 10:00 04/22/20 09:58 Keppra PO 500 mg BID LUCHO Administration Mirtazapine 30 mg 12/06/19 10:00 04/22/20 09:59 Remeron PO 30 mg DAILY LUCHO Administration Nicotine 21 mg 02/16/20 13:00 04/22/20 09:58 Habitrol TD 21 mg QDAY LUCHO Administration Ondansetron HCl 4 mg 12/10/19 07:53 02/25/20 02:51 Zofran IV 4 mg Q4H PRN Administration Nausea And Vomiting Polyethylene Glycol 17 gm 02/06/20 13:57 Miralax 3350 PO QDAY PRN Constipation Quetiapine Fumarate 100 mg 03/06/20 10:00 04/22/20 09:58 Seroquel FEEDTUBE 100 mg BID LUCHO Administration Scopolamine 1 each 02/08/20 15:00 04/20/20 09:29 Transderm-Scop TD 1 each Q3D LUCHO Administration Sertraline HCl 25 mg 01/01/20 10:00 04/22/20 10:00 Zoloft PO 25 mg QDAY LUCHO Administration Simple Syrup 15 ml 11/23/19 11:50 Simple Syrup FEEDTUBE PRN PRN Hypoglycemia BG<70 Simple Syrup 30 ml 11/23/19 11:50 Simple Syrup FEEDTUBE PRN PRN Hypoglycemia Sodium Bicarbonate 325 mg 11/23/19 11:50 Sodium Bicarbonate FEEDTUBE PRN PRN For Clogged Feeding Tube Nutrition/Malnutrition Assess - Dietary Evaluation Nutrition/Malnutrition Findings: Nutrition Notes Start: 11/23/19 11:29 Freq: Status: Active Protocol: Document 04/16/20 13:28 LM (Rec: 04/16/20 13:30 LM [id number]) Nutrition Notes Initial or Follow up Reassessment Other Pertinent Diagnosis s/p Cardiac arrest, acute metabolic encephalopathy Current Diet Mech soft with chopped meats Labs/Tests Reviewed Pertinent Medications Reviewed Height 5 ft 6 in Weight 45.5 kg [place] Body Weight (kg) 59.09 BMI 16.2 Weight change and time frame wt gain noted Subjective/Other Information Per RN pt ate 100% of breakfast. Burn Absent Trauma Absent GI Symptoms None Current % PO Good (75-100%) Minimum of two criteria Yes Interpretation of Weight Loss (severe) >2% in 1 week Muscle Mass Mild Depletion (non-severe) #2 Nutrition Diagnosis Malnutrition Diagnosis Progress(for reassessment Continues documentation) #1 Nutrition Diagnosis Inadequate oral intake As Evidenced by Signs and Symptoms Pt continues to eat 100% Diagnosis Progress(for reassessment Resolved documentation) Is patient on ventilator? No Is Patient Ambulatory and/or Out of Bed No REE-([place]-confined to bed) 1284.840 Kcal/Kg value to use for calculation 35 Approximate Energy Requirements Using 1593 kcal/Kg Calculation Used for Recommendations Kcal/kg Additional Notes Pro needs 1.2-1.5g/k-74g/ day Fluid needs 1ml/kcal Nutrition Intervention Change Diet Order: continue Goal #1 PO intake of meals plus ONS to meet 100% energy and pro needs Goal #2 Wt maintenance and/or gain Anticipated Discharge Needs: Continue ONS 1-2 times daily for wt maintenance Follow-Up By: 04/23/20 Additional Comments F/U for stable intakes
[2020-04-22] MEDS: ENOXAPARIN 40 MG/0.4 ML INJ SUB-Q SCH (21:38)
[2020-04-23] MEDS: HALOPERIDOL LACTATE 5 MG/1 ML INJ IM PRN (04:04)
[2020-04-23] MEDS: SCOPOLAMINE TRANSDERMAL PATCH 72 HR TD SCH (09:15)
[2020-04-23] MEDS: GLYCOPYRROLATE 1 MG TAB PO SCH ×3 (09:15→22:49)
[2020-04-23] MEDS: MIRTAZAPINE 30 MG TAB PO SCH (09:15)
[2020-04-23] MEDS: NICOTINE 21 MG/24 HR PATCH TD SCH (09:16)
[2020-04-23] MEDS: levETIRAcetam 500 MG/5 ML ORAL LIQD PO SCH ×2 (09:16→22:49)
[2020-04-23] MEDS: LANSOPRAZOLE 30 MG SOLUTAB FEEDTUBE SCH (09:16)
[2020-04-23] MEDS: QUEtiapine 100 MG TAB FEEDTUBE SCH ×2 (09:16→22:48)
[2020-04-23] MEDS: hydrOXYzine PAMOATE 25 MG CAP PO SCH ×2 (09:16→22:48)
[2020-04-23] MEDS: SERTRALINE 50 MG TAB PO SCH (09:17)
--- NOTE | 2020-04-23 16:38 | Progress Note ---
Assessment and Plan - Patient Problems (1) Anoxic brain injury Current Visit: Yes Status: Acute Plan to address problem: Supportive care, continue current therapy. Aspiration precautions, seizure precautions. (2) Anoxic encephalopathy Current Visit: Yes Status: Acute Plan to address problem: Supportive care, aspiration precautions, seizure precautions, supportive care. (3) Acute respiratory failure Current Visit: Yes Status: Acute Qualifiers: Respiratory failure complication: hypoxia Qualified Code(s): J96.01 - Acute respiratory failure with hypoxia Plan to address problem: Patient is status post tracheostomy and PEG tube placement. Continue supplemental oxygen. (4) Seizure disorder Current Visit: Yes Status: Acute Plan to address problem: Continue Keppra therapy, seizure precautions, supportive care. (5) DVT prophylaxis Current Visit: Yes Status: Acute Plan to address problem: SCD to bilateral lower extremities while in bed, prophylactic Lovenox (6) Advance care planning Current Visit: Yes Status: Acute Plan to address problem: Patient is DNR, supportive care, discharge planning conducted, discussed with case management. +30 minutes. History Interval history: 55 YO Female HD #31 with TATIANA S/P Cardiac Arrest, Anoxic Encephalopathy, Severe Malnutrition, Acute/Chronic Respiratory Failure S/P Trach and Peg placement who is currently pending placement. Patient is resting comfortably in bed. No acute decompensation overnight. No reported nursing events. Case management consulted for discharge planning/placement. Hospitalist Physical - Constitutional Vitals: Temp Pulse Resp BP Pulse Ox 97.6 F 80 19 162/90 100 04/23/20 08:27 04/23/20 08:27 04/23/20 10:00 04/23/20 08:27 04/23/20 08:27 General appearance: Present: no acute distress, cachectic - EENT ENT: hearing decreased - Neck Neck: Present: supple - Respiratory Respiratory: bilateral: diminished - Cardiovascular Rhythm: regular Heart Sounds: Present: S1 & S2 Peripheral Pulses: within normal limits - Abdominal General gastrointestinal: soft, non-tender, non-distended, other (PEG tube in place) - Integumentary Integumentary: Present: clear, dry - Psychiatric Psychiatric: no appropriate mood/affect, no intact judgment & insight, no memory intact - Neurologic Neurologic: no gait normal HEART Score - HEART Score Troponin: Troponin T < 0.010 ng/mL (0.00-0.029) 11/22/19 23:27 Results - Labs CBC & Chem 7: 04/16/20 09:02 04/16/20 05:00 Labs: Laboratory Last Values WBC 6.7 K/mm3 (4.5-11.0) 04/16/20 09:02 RBC 4.13 M/mm3 (3.65-5.03) 04/16/20 09:02 Hgb 11.8 gm/dl (10.1-14.3) 04/16/20 09:02 Hct 37.0 % (30.3-42.9) 04/16/20 09:02 MCV 90 fl (79-97) 04/16/20 09:02 MCH 29 pg (28-32) 04/16/20 09:02 MCHC 32 % (30-34) 04/16/20 09:02 RDW 14.3 % (13.2-15.2) 04/16/20 09:02 Plt Count 502 K/mm3 (140-440) H 04/16/20 09:02 Lymph % (Auto) 25.9 % (13.4-35.0) 04/16/20 09:02 Bulloch % (Auto) 7.4 % (0.0-7.3) H 04/16/20 09:02 Eos % (Auto) 0.9 % (0.0-4.3) 04/16/20 09:02 Baso % (Auto) 0.8 % (0.0-1.8) 04/16/20 09:02 Lymph # 1.7 K/mm3 (1.2-5.4) 04/16/20 09:02 Bulloch # 0.5 K/mm3 (0.0-0.8) 04/16/20 09:02 Eos # 0.1 K/mm3 (0.0-0.4) 04/16/20 09:02 Baso # 0.1 K/mm3 (0.0-0.1) 04/16/20 09:02 Add Manual Diff Complete 12/25/19 03:47 Total Counted 200 12/25/19 03:47 Seg Neutrophils % 65.0 % (40.0-70.0) 04/16/20 09:02 Seg Neuts % (Manual) 97.5 % (40.0-70.0) H 12/25/19 03:47 Band Neutrophils % 0 % 12/25/19 03:47 Lymphocytes % (Manual) 1.0 % (13.4-35.0) L 12/25/19 03:47 Reactive Lymphs % (Man) 0 % 12/25/19 03:47 Monocytes % (Manual) 1.5 % (0.0-7.3) 12/25/19 03:47 Eosinophils % (Manual) 0 % (0.0-4.3) 12/25/19 03:47 Basophils % (Manual) 0 % (0.0-1.8) 12/25/19 03:47 Metamyelocytes % 0 % 12/25/19 03:47 Myelocytes % 0 % 12/25/19 03:47 Promyelocytes % 0 % 12/25/19 03:47 Blast Cells % 0 % 12/25/19 03:47 Nucleated RBC % Not Reportable 12/25/19 03:47 Seg Neutrophils # 4.4 K/mm3 (1.8-7.7) 04/16/20 09:02 Seg Neutrophils # Man 35.3 K/mm3 (1.8-7.7) H 12/25/19 03:47 Band Neutrophils # 0.0 K/mm3 12/25/19 03:47 Lymphocytes # (Manual) 0.4 K/mm3 (1.2-5.4) L 12/25/19 03:47 Abs React Lymphs (Man) 0.0 K/mm3 12/25/19 03:47 Monocytes # (Manual) 0.5 K/mm3 (0.0-0.8) 12/25/19 03:47 Eosinophils # (Manual) 0.0 K/mm3 (0.0-0.4) 12/25/19 03:47 Basophils # (Manual) 0.0 K/mm3 (0.0-0.1) 12/25/19 03:47 Metamyelocytes # 0.0 K/mm3 12/25/19 03:47 Myelocytes # 0.0 K/mm3 12/25/19 03:47 Promyelocytes # 0.0 K/mm3 12/25/19 03:47 Blast Cells # 0.0 K/mm3 12/25/19 03:47 Pathologist Review 12/13/19 07:48 WBC Morphology Not Reportable 12/25/19 03:47 Hypersegmented Neuts Not Reportable 12/25/19 03:47 Hyposegmented Neuts Not Reportable 12/25/19 03:47 Hypogranular Neuts Not Reportable 12/25/19 03:47 Smudge Cells Not Reportable 12/25/19 03:47 Toxic Granulation Not Reportable 12/25/19 03:47 Toxic Vacuolation Not Reportable 12/25/19 03:47 Dohle Bodies Not Reportable 12/25/19 03:47 Pelger-Huet Anomaly Not Reportable 12/25/19 03:47 Dominique Rods Not Reportable 12/25/19 03:47 Platelet Estimate Consistent w auto 12/25/19 03:47 Clumped Platelets Not Reportable 12/25/19 03:47 Plt Clumps, EDTA Not Reportable 12/25/19 03:47 Large Platelets Not Reportable 12/25/19 03:47 Giant Platelets Not Reportable 12/25/19 03:47 Platelet Satelliting Not Reportable 12/25/19 03:47 Plt Morphology Comment Not Reportable 12/25/19 03:47 RBC Morphology Not Reportable 12/25/19 03:47 Dimorphic RBCs Not Reportable 12/25/19 03:47 Polychromasia Not Reportable 12/25/19 03:47 Hypochromasia Not Reportable 12/25/19 03:47 Poikilocytosis Not Reportable 12/25/19 03:47 Anisocytosis 1+ 12/25/19 03:47 Microcytosis Not Reportable 12/25/19 03:47 Macrocytosis Not Reportable 12/25/19 03:47 Spherocytes Not Reportable 12/25/19 03:47 Pappenheimer Bodies Not Reportable 12/25/19 03:47 Sickle Cells Not Reportable 12/25/19 03:47 Target Cells Not Reportable 12/25/19 03:47 Tear Drop Cells Not Reportable 12/25/19 03:47 Ovalocytes Not Reportable 12/25/19 03:47 Helmet Cells Not Reportable 12/25/19 03:47 [place] Bodies Not Reportable 12/25/19 03:47 [place] Rings Not Reportable 12/25/19 03:47 [place] Cells Not Reportable 12/25/19 03:47 Bite Cells Not Reportable 12/25/19 03:47 Crenated Cell Not Reportable 12/25/19 03:47 Elliptocytes Not Reportable 12/25/19 03:47 Acanthocytes (Spur) Not Reportable 12/25/19 03:47 Rouleaux Not Reportable 12/25/19 03:47 Hemoglobin C Crystals Not Reportable 12/25/19 03:47 Schistocytes Not Reportable 12/25/19 03:47 Malaria parasites Not Reportable 12/25/19 03:47 Gregg Bodies Not Reportable 12/25/19 03:47 Hem Pathologist Commnt No 12/25/19 03:47 PT 17.0 Sec. (12.2-14.9) H 11/23/19 03:47 INR 1.36 (0.87-1.13) H 11/23/19 03:47 APTT 128.2 Sec. (24.2-36.6) H* 11/23/19 03:47 Heparin Anti-Xa Level 0.31 U.I./ml (0.3-0.7) 11/23/19 09:03 ABG pH 7.433 pH Units (7.350-7.450) 03/08/20 13:25 ABG pCO2 40.2 mm Hg 03/08/20 13:25 ABG pO2 71.1 mm Hg (80.0-90.0) L 03/08/20 13:25 ABG HCO3 26.2 mmol/L (20.0-26.0) H 03/08/20 13:25 ABG O2 Saturation 97.0 % (95.0-99.0) 03/08/20 13:25 ABG O2 Content 11.0 (0.0-44) 03/08/20 13:25 ABG Base Excess 1.8 mmol/L (-2.0-3.0) 03/08/20 13:25 ABG Hemoglobin 8.2 gm/dl (12.0-16.0) L 03/08/20 13:25 ABG Carboxyhemoglobin 1.7 % (0.0-5.0) 03/08/20 13:25 ABG Methemoglobin 0.5 % (0.0-1.5) 03/08/20 13:25 Oxyhemoglobin 94.8 % (95.0-99.0) L 03/08/20 13:25 FiO2 21 % 03/08/20 13:25 Sodium 144 mmol/L (137-145) 04/16/20 05:00 Potassium 3.2 mmol/L (3.6-5.0) L 04/16/20 05:00 Chloride 107.4 mmol/L (98-107) H 04/16/20 05:00 Carbon Dioxide 23 mmol/L (22-30) 04/16/20 05:00 Anion Gap 17 mmol/L 04/16/20 05:00 BUN 16 mg/dL (7-17) 04/16/20 05:00 Creatinine 0.4 mg/dL (0.7-1.2) L 04/16/20 05:00 Estimated GFR > 60 ml/min 04/16/20 05:00 BUN/Creatinine Ratio 40 % 04/16/20 05:00 Glucose 73 mg/dL (65-100) 04/16/20 05:00 POC Glucose 112 (70-105) H 04/13/20 16:39 Lactic Acid 1.80 mmol/L (0.7-2.0) 11/25/19 05:05 Calcium 10.0 mg/dL (8.4-10.2) 04/16/20 05:00 Ionized Calcium 4.5 mg/dL (4.8-5.6) L 11/23/19 06:32 Phosphorus 4.20 mg/dL (2.5-4.5) D 11/28/19 08:59 Magnesium 1.90 mg/dL (1.7-2.3) 02/28/20 03:40 Total Bilirubin 0.40 mg/dL (0.1-1.2) 12/13/19 07:48 AST 27 units/L (5-40) 12/13/19 07:48 ALT 26 units/L (7-56) 12/13/19 07:48 Alkaline Phosphatase 316 units/L (35-129) H 12/13/19 07:48 Ammonia 42.0 umol/L (25-60) 11/29/19 13:41 Total Creatine Kinase 139 units/L (30-135) H 11/22/19 23:27 CK-MB (CK-2) 8.3 ng/mL (0.0-4.0) H 11/22/19 23:27 CK-MB (CK-2) Rel Index 5.9 (0-4) H 11/22/19 23:27 Troponin T < 0.010 ng/mL (0.00-0.029) 11/22/19 23:27 Total Protein 6.8 g/dL (6.3-8.2) 12/13/19 07:48 Albumin 2.4 g/dL (3.9-5) L 12/13/19 07:48 Albumin/Globulin Ratio 0.5 % 12/13/19 07:48 Lipase 18 units/L (13-60) 11/23/19 00:34 Procalcitonin 1.09 ng/mL (<0.15) 11/23/19 04:53 TSH 1.010 mlU/mL (0.270-4.200) 02/12/20 07:36 Free T4 1.08 ng/dL (0.76-1.46) 02/12/20 07:36 Urine Color Yellow (Yellow) 12/16/19 Unknown Urine Turbidity Slightly-cloudy (Clear) 12/16/19 Unknown Urine pH 5.0 (5.0-7.0) 12/16/19 Unknown Ur Specific Bradshaw 1.018 (1.003-1.030) 12/16/19 Unknown Urine Protein 30 mg/dl mg/dL (Negative) 12/16/19 Unknown Urine Glucose (UA) Neg mg/dL (Negative) 12/16/19 Unknown Urine Ketones Neg mg/dL (Negative) 12/16/19 Unknown Urine Blood Sm (Negative) 12/16/19 Unknown Urine Nitrite Neg (Negative) 12/16/19 Unknown Urine Bilirubin Neg (Negative) 12/16/19 Unknown Urine Urobilinogen < 2.0 mg/dL (<2.0) 12/16/19 Unknown Ur Leukocyte Esterase Neg (Negative) 12/16/19 Unknown Urine WBC (Auto) 6.0 /HPF (0.0-6.0) 12/16/19 Unknown Urine RBC (Auto) 9.0 /HPF (0.0-6.0) 12/16/19 Unknown U Epithel Cells (Auto) < 1.0 /HPF (0-13.0) 12/16/19 Unknown Urine Bacteria (Auto) 2+ /HPF (Negative) 11/22/19 23:17 Hyaline Casts 3 /LPF 12/16/19 Unknown Granular Casts 3 /LPF 12/16/19 Unknown Urine Mucus Few /HPF 12/16/19 Unknown Vancomycin Trough 33.8 ug/mL (5.0-20.0) H 12/21/19 08:56 Random Vancomycin 16.2 ug/mL (0-40.0) 12/24/19 04:31 Salicylates < 0.3 mg/dL (2.8-20.0) L 11/22/19 23:27 Urine Opiates Screen Presumptive negative 11/22/19 23:17 Urine Methadone Screen Presumptive negative 11/22/19 23:17 Acetaminophen < 5.0 ug/mL (10.0-30.0) L 11/22/19 23:27 Ur Barbiturates Screen Presumptive negative 11/22/19 23:17 Ur Phencyclidine Scrn Presumptive negative 11/22/19 23:17 Ur Amphetamines Screen Presumptive negative 11/22/19 23:17 U Benzodiazepines Scrn Presumptive negative 11/22/19 23:17 Urine Cocaine Screen Presumptive negative 11/22/19 23:17 U Marijuana (THC) Screen Presumptive negative 11/22/19 23:17 Drugs of Abuse Note Disclamer 11/22/19 23:17 Plasma/Serum Alcohol 0.08 % (0-0.07) H 11/22/19 23:27 Coronavirus (PCR) Negative (Negative) 02/05/20 07:50 Hepatitis A IgM Ab Non-reactive (NonReactive) 11/23/19 01:19 Hep Bs Antigen Non-reactive (Negative) 11/23/19 01:19 Hep B Core IgM Ab Non-reactive (NonReactive) 11/23/19 01:19 Hepatitis C Antibody Non-reactive (NonReactive) 11/23/19 01:19 Blood Type O POSITIVE 12/21/19 14:54 Antibody Screen Negative 12/21/19 14:54 Crossmatch See Detail 12/21/19 14:54 - Diagnostic Impressions Diagnostic Impressions: Echocardiogram 11/23/19 03:58 Transthoracic Echocardiogram Indication: Cardiac arrest BP: 131/89 HR: 115 Conclusions *The study quality is technically difficult. *Global left ventricular wall motion and contractility are within normal limits. *The estimated ejection fraction is 55-60%. *Abnormal left ventricular diastolic filling is observed, consistent with impaired relaxation. *There is no pericardial effusion. Findings Procedure Info: The study quality is technically difficult. The study was technically limited due to the patient's inability to lay in the left lateral decubitus position. Left Ventricle: The left ventricular chamber size is normal. There is no left ventricular hypertrophy. Global left ventricular wall motion and contractility are within normal limits. Global left ventricular systolic function is normal. The estimated ejection fraction is 55-60%. Abnormal left ventricular diastolic filling is observed, consistent with impaired relaxation. Left Atrium: The left atrial chamber size is normal. Aortic Valve: The aortic valve leaflets are mildly thickened. Mitral Valve: The mitral valve leaflets are mildly thickened. There is no evidence of mitral regurgitation. Tricuspid Valve: The tricuspid valve leaflets are normal. There is trace tricuspid regurgitation. The right ventricular systolic pressure is calculated at 33 mmHg. Pulmonic Valve: The pulmonic valve appears normal. Pericardium: The pericardium appears normal. There is no pericardial effusion. Aorta: The aorta appears normal. Venous: The inferior vena cava appears normal in size. Measurements Chambers 2D Name Value Normal Range IVSd (2D) 0.94 cm (0.6 - 1.1) LVPWd (2D) 0.81 cm (0.6 - 1.1) LVIDd (2D) 3.6 cm (3.7 - 5.6) LVIDs (2D) 2.27 cm (2 - 3.8) LV FS (2D) 36.93 % - EF Teichholz (2D) 67.76 % - Ao root diameter (2D) 3.03 cm (2 - 3.7) Volumes/Mass Name Value Normal Range LA ESV SP 4CH (A/L) 16.89 ml - LA ESV SP 4CH (MOD) 15.52 ml - Diastolic/Systolic Function Name Value Normal Range MV E-wave Vmax 0.55 m/sec - MV deceleration time 200.89 msec - MV A-wave Vmax 0.68 m/sec - MV E:A ratio 0.82 ratio - Aortic Valve Name Value Normal Range AV Vmax 1.1 m/sec - AV VTI 15.9 cm - AV peak gradient 4.86 mmHg - AV mean gradient 2.59 mmHg - LVOT diameter 2 cm - LVOT Vmax 1.03 m/sec - LVOT VTI 15.87 cm - LVOT peak gradient 4.24 mmHg - LVOT mean gradient 2.41 mmHg - SV LVOT 49.77 ml - JOSÉ MIGUEL (continuity Vmax) 2.93 cm2 - JOSÉ MIGUEL (continuity VTI) 3.13 cm2 - Tricuspid Valve Name Value Normal Range TR Vmax 2.74 m/sec - TR peak gradient 303 mmHg - RAP 3 mmHg - RVSP 33 mmHg - IVC diameter 1.77 cm (1.2 - 2.3) Pulmonic Valve/Qp:Qs Name Value Normal Range PV Vmax 0.77 m/sec - PV peak gradient 2.4 mmHg - PV acceleration time 114.18 msec - Echocardiogram Limited Views 12/17/19 14:53 Transthoracic Echocardiogram Indication: R/O Vegetations BP: 144/83 HR: 133 Conclusions *Global left ventricular systolic function is mildly decreased. *The estimated ejection fraction is 45-50%. *A trivial pericardial effusion is visualized. Findings Left Ventricle: The left ventricular chamber size is normal. Global left ventricular systolic function is mildly decreased. The estimated ejection fraction is 45-50%. Left Atrium: The left atrial chamber size is normal. Right Ventricle: The right ventricular cavity size is normal. Right Atrium: The right atrial cavity size is normal. Aortic Valve: The aortic valve is not well visualized. There is no evidence of aortic regurgitation. Mitral Valve: The mitral valve leaflets are mildly thickened. There is trace of mitral regurgitation. Tricuspid Valve: The tricuspid valve leaflets are mildly thickened. There is trace tricuspid regurgitation. The right ventricular systolic pressure is calculated at 29 mmHg. Pulmonic Valve: The pulmonic valve is not well visualized. There is no evidence of pulmonic regurgitation. Pericardium: A trivial pericardial effusion is visualized. Aorta: There is no dilatation of the ascending aorta. There is no dilatation of the aortic root. Venous: The inferior vena cava appears normal in size. There is a greater than 50% respiratory change in the inferior vena cava dimension. Measurements Chambers 2D Name Value Normal Range IVSd (2D) 0.83 cm (0.6 - 1.1) LVPWd (2D) 0.98 cm (0.6 - 1.1) LVIDd (2D) 3.71 cm (3.7 - 5.6) LVIDs (2D) 2.93 cm (2 - 3.8) LV FS (2D) 21.12 % - EF Teichholz (2D) 43.71 % - Ao root diameter (2D) 3.02 cm (2 - 3.7) Volumes/Mass Name Value Normal Range LA ESV SP 4CH (A/L) 36.8 ml - LA ESV SP 2CH (A/L) 45.89 ml - LA ESV BP (A/L) 42.35 ml - LA ESV BP (A/L) index 26.63 ml/m2 - LA ESV SP 4CH (MOD) 34.42 ml - LA ESV SP 2CH (MOD) 44.21 ml - LA ESV BP (MOD) 39.82 ml - LA ESV BP (MOD) index 25.05 ml/m2 - Aortic Valve Name Value Normal Range LVOT diameter 1.63 cm - Tricuspid Valve Name Value Normal Range TR Vmax 2.56 m/sec - TR peak gradient 26 mmHg - RAP 3 mmHg - RVSP 29 mmHg - IVC diameter 1.83 cm (1.2 - 2.3) Dela Cruz/IV: Voiding Method Bedpan IV Catheter Type [Forearm] Peripheral IV IV Catheter Type [Left Forearm INT / Saline Lock ] IV Catheter Type [Right INT / Saline Lock Antecubital] IV Catheter Type [Right Hand] INT / Saline Lock IV Catheter Type [Right Wrist] Peripheral IV IV Catheter Type [Left Wrist] Peripheral IV IV Catheter Type [Left Peripheral IV Antecubital] IV Catheter Type [Right INT / Saline Lock Forearm] IV Catheter Type [Left Hand] INT / Saline Lock Active Medications - Current Medications Current Medications: Generic Name Dose Route Start Last Admin Trade Name Luh PRN Reason Stop Dose Admin Albuterol 2.5 mg 03/25/20 19:25 04/07/20 08:59 Proventil IH 2.5 mg Q4HRT PRN Administration Shortness Of Breath Lipase/Protease/Amylase 1 each 11/23/19 11:50 Pancreaze 10,500 Unit FEEDTUBE PRN PRN Use w/ sod bicarb for FT Bisacodyl 10 mg 02/06/20 13:57 Dulcolax ND QDAY PRN Constipation unrelieved by MOM Enoxaparin Sodium 40 mg 03/07/20 22:00 04/22/20 21:38 Enoxaparin SUB-Q 40 mg QDAY@2200 LUCHO Administration Glycopyrrolate 2 mg 12/31/19 20:00 04/23/20 14:33 Robinul PO 2 mg TID LUCHO Administration Haloperidol Lactate 5 mg 03/05/20 09:22 04/23/20 04:04 Haldol IM 5 mg Q6H PRN Administration Agitation Hydroxyzine Pamoate 25 mg 12/06/19 10:00 04/23/20 09:16 Vistaril PO 25 mg BID LUCHO Administration Lansoprazole 30 mg 11/27/19 10:00 04/23/20 09:16 Prevacid Solutab FEEDTUBE 30 mg QDAY LUCHO Administration Levetiracetam 500 mg 11/29/19 10:00 04/23/20 09:16 Keppra PO 500 mg BID LUCHO Administration Mirtazapine 30 mg 12/06/19 10:00 04/23/20 09:15 Remeron PO 30 mg DAILY LUCHO Administration Nicotine 21 mg 02/16/20 13:00 04/23/20 09:16 Habitrol TD 21 mg QDAY LUCHO Administration Ondansetron HCl 4 mg 12/10/19 07:53 02/25/20 02:51 Zofran IV 4 mg Q4H PRN Administration Nausea And Vomiting Polyethylene Glycol 17 gm 02/06/20 13:57 Miralax 3350 PO QDAY PRN Constipation Quetiapine Fumarate 100 mg 03/06/20 10:00 04/23/20 09:16 Seroquel FEEDTUBE 100 mg BID LUCHO Administration Scopolamine 1 each 02/08/20 15:00 04/23/20 09:15 Transderm-Scop TD 1 each Q3D LUCHO Administration Sertraline HCl 25 mg 01/01/20 10:00 04/23/20 09:17 Zoloft PO 25 mg QDAY LUCHO Administration Simple Syrup 15 ml 11/23/19 11:50 Simple Syrup FEEDTUBE PRN PRN Hypoglycemia BG<70 Simple Syrup 30 ml 11/23/19 11:50 Simple Syrup FEEDTUBE PRN PRN Hypoglycemia Sodium Bicarbonate 325 mg 11/23/19 11:50 Sodium Bicarbonate FEEDTUBE PRN PRN For Clogged Feeding Tube Nutrition/Malnutrition Assess - Dietary Evaluation Nutrition/Malnutrition Findings: Nutrition Notes Start: 11/23/19 11:29 Freq: Status: Active Protocol: Document 04/23/20 14:33 EVELIA (Rec: 04/23/20 14:35 EVELIA [email or web address]) Nutrition Notes Initial or Follow up Reassessment Other Pertinent Diagnosis s/p Cardiac arrest, acute metabolic encephalopathy Current Diet Mech soft with chopped meats Labs/Tests Reviewed Pertinent Medications Reviewed Height 5 ft 6 in Weight 43.5 kg Wilson Body Weight (kg) 59.09 BMI 15.5 Subjective/Other Information Pt has consumed 79% of meals since last assessment. Percent of energy/protein needs met: 100% energy 100% pro Burn Absent Trauma Absent Current % PO Good (75-100%) #2 Nutrition Diagnosis Malnutrition Diagnosis Progress(for reassessment Continues documentation) Is patient on ventilator? No Is Patient Ambulatory and/or Out of Bed No REE-([facility]-confined to bed) 1260.864 Kcal/Kg value to use for calculation 35 Approximate Energy Requirements Using 1523 kcal/Kg Calculation Used for Recommendations Kcal/kg Additional Notes Pro needs 1.2-1.5g/k-65g/ day Fluid needs 1ml/kcal Nutrition Intervention Goal #1 PO intake of meals plus ONS to meet 100% energy and pro needs Goal #2 Wt maintenance and/or gain Revisit per MD consult or patient Sign Off request:
[2020-04-23] MEDS: ENOXAPARIN 40 MG/0.4 ML INJ SUB-Q SCH (22:49)
[2020-04-24] MEDS: HALOPERIDOL LACTATE 5 MG/1 ML INJ IM PRN ×2 (03:54→09:46)
[2020-04-24] MEDS: levETIRAcetam 500 MG/5 ML ORAL LIQD PO SCH ×2 (09:46→22:20)
[2020-04-24] MEDS: QUEtiapine 100 MG TAB FEEDTUBE SCH ×2 (09:46→22:19)
[2020-04-24] MEDS: NICOTINE 21 MG/24 HR PATCH TD SCH (09:46)
[2020-04-24] MEDS: GLYCOPYRROLATE 1 MG TAB PO SCH ×3 (09:47→22:20)
[2020-04-24] MEDS: hydrOXYzine PAMOATE 25 MG CAP PO SCH ×2 (09:47→22:20)
[2020-04-24] MEDS: SERTRALINE 50 MG TAB PO SCH (09:47)
[2020-04-24] MEDS: LANSOPRAZOLE 30 MG SOLUTAB FEEDTUBE SCH (09:47)
[2020-04-24] MEDS: MIRTAZAPINE 30 MG TAB PO SCH (09:47)
--- NOTE | 2020-04-24 19:36 | Progress Note ---
Assessment and Plan - Patient Problems (1) Anoxic brain injury Current Visit: Yes Status: Acute Plan to address problem: Supportive care, continue current therapy. Aspiration precautions, seizure precautions. (2) Anoxic encephalopathy Current Visit: Yes Status: Acute Plan to address problem: Supportive care, aspiration precautions, seizure precautions, supportive care. (3) Acute respiratory failure Current Visit: Yes Status: Acute Qualifiers: Respiratory failure complication: hypoxia Qualified Code(s): J96.01 - Acute respiratory failure with hypoxia Plan to address problem: Patient is status post tracheostomy and PEG tube placement. Continue supplemental oxygen. (4) Seizure disorder Current Visit: Yes Status: Acute Plan to address problem: Continue Keppra therapy, seizure precautions, supportive care. (5) DVT prophylaxis Current Visit: Yes Status: Acute Plan to address problem: SCD to bilateral lower extremities while in bed, prophylactic Lovenox (6) Advance care planning Current Visit: Yes Status: Acute Plan to address problem: Patient is DNR, supportive care, discharge planning conducted, discussed with case management. +30 minutes. History Interval history: 55 YO Female HD #32 with TATIANA S/P Cardiac Arrest, Anoxic Encephalopathy, Severe Malnutrition, Acute/Chronic Respiratory Failure S/P Trach and Peg placement who is currently pending placement. Patient is resting comfortably in bed. No acute decompensation overnight. No reported nursing events. Case management consulted for discharge planning/placement. Hospitalist Physical - Constitutional Vitals: Temp Pulse Resp BP Pulse Ox 97.9 F 83 20 142/91 93 04/24/20 10:45 04/24/20 07:48 04/24/20 10:45 04/24/20 10:45 04/24/20 07:48 General appearance: Present: no acute distress, cachectic - Neck Neck: Present: supple - Respiratory Respiratory: bilateral: diminished, rhonchi - Cardiovascular Rhythm: regular Heart Sounds: Present: S1 & S2 - Extremities Extremities: no ischemia - Abdominal General gastrointestinal: soft, non-tender, non-distended - Integumentary Integumentary: Present: dry - Psychiatric Psychiatric: no appropriate mood/affect, no intact judgment & insight, no memory intact - Neurologic Neurologic: no gait normal HEART Score - HEART Score Troponin: Troponin T < 0.010 ng/mL (0.00-0.029) 11/22/19 23:27 Results - Labs CBC & Chem 7: 04/16/20 09:02 07/29/20 05:00 Labs: Laboratory Last Values WBC 6.7 K/mm3 (4.5-11.0) 04/16/20 09:02 RBC 4.13 M/mm3 (3.65-5.03) 04/16/20 09:02 Hgb 11.8 gm/dl (10.1-14.3) 04/16/20 09:02 Hct 37.0 % (30.3-42.9) 04/16/20 09:02 MCV 90 fl (79-97) 04/16/20 09:02 MCH 29 pg (28-32) 04/16/20 09:02 MCHC 32 % (30-34) 04/16/20 09:02 RDW 14.3 % (13.2-15.2) 04/16/20 09:02 Plt Count 502 K/mm3 (140-440) H 04/16/20 09:02 Lymph % (Auto) 25.9 % (13.4-35.0) 04/16/20 09:02 [place] % (Auto) 7.4 % (0.0-7.3) H 04/16/20 09:02 Eos % (Auto) 0.9 % (0.0-4.3) 04/16/20 09:02 Baso % (Auto) 0.8 % (0.0-1.8) 04/16/20 09:02 Lymph # 1.7 K/mm3 (1.2-5.4) 04/16/20 09:02 Kent # 0.5 K/mm3 (0.0-0.8) 04/16/20 09:02 Eos # 0.1 K/mm3 (0.0-0.4) 04/16/20 09:02 Baso # 0.1 K/mm3 (0.0-0.1) 04/16/20 09:02 Add Manual Diff Complete 12/25/19 03:47 Total Counted 200 12/25/19 03:47 Seg Neutrophils % 65.0 % (40.0-70.0) 04/16/20 09:02 Seg Neuts % (Manual) 97.5 % (40.0-70.0) H 12/25/19 03:47 Band Neutrophils % 0 % 12/25/19 03:47 Lymphocytes % (Manual) 1.0 % (13.4-35.0) L 12/25/19 03:47 Reactive Lymphs % (Man) 0 % 12/25/19 03:47 Monocytes % (Manual) 1.5 % (0.0-7.3) 12/25/19 03:47 Eosinophils % (Manual) 0 % (0.0-4.3) 12/25/19 03:47 Basophils % (Manual) 0 % (0.0-1.8) 12/25/19 03:47 Metamyelocytes % 0 % 12/25/19 03:47 Myelocytes % 0 % 12/25/19 03:47 Promyelocytes % 0 % 12/25/19 03:47 Blast Cells % 0 % 12/25/19 03:47 Nucleated RBC % Not Reportable 12/25/19 03:47 Seg Neutrophils # 4.4 K/mm3 (1.8-7.7) 04/16/20 09:02 Seg Neutrophils # Man 35.3 K/mm3 (1.8-7.7) H 12/25/19 03:47 Band Neutrophils # 0.0 K/mm3 12/25/19 03:47 Lymphocytes # (Manual) 0.4 K/mm3 (1.2-5.4) L 12/25/19 03:47 Abs React Lymphs (Man) 0.0 K/mm3 12/25/19 03:47 Monocytes # (Manual) 0.5 K/mm3 (0.0-0.8) 12/25/19 03:47 Eosinophils # (Manual) 0.0 K/mm3 (0.0-0.4) 12/25/19 03:47 Basophils # (Manual) 0.0 K/mm3 (0.0-0.1) 12/25/19 03:47 Metamyelocytes # 0.0 K/mm3 12/25/19 03:47 Myelocytes # 0.0 K/mm3 12/25/19 03:47 Promyelocytes # 0.0 K/mm3 12/25/19 03:47 Blast Cells # 0.0 K/mm3 12/25/19 03:47 Pathologist Review 12/13/19 07:48 WBC Morphology Not Reportable 12/25/19 03:47 Hypersegmented Neuts Not Reportable 12/25/19 03:47 Hyposegmented Neuts Not Reportable 12/25/19 03:47 Hypogranular Neuts Not Reportable 12/25/19 03:47 Smudge Cells Not Reportable 12/25/19 03:47 Toxic Granulation Not Reportable 12/25/19 03:47 Toxic Vacuolation Not Reportable 12/25/19 03:47 Dohle Bodies Not Reportable 12/25/19 03:47 Pelger-Huet Anomaly Not Reportable 12/25/19 03:47 Dominique Rods Not Reportable 12/25/19 03:47 Platelet Estimate Consistent w auto 12/25/19 03:47 Clumped Platelets Not Reportable 12/25/19 03:47 Plt Clumps, EDTA Not Reportable 12/25/19 03:47 Large Platelets Not Reportable 12/25/19 03:47 Giant Platelets Not Reportable 12/25/19 03:47 Platelet Satelliting Not Reportable 12/25/19 03:47 Plt Morphology Comment Not Reportable 12/25/19 03:47 RBC Morphology Not Reportable 12/25/19 03:47 Dimorphic RBCs Not Reportable 12/25/19 03:47 Polychromasia Not Reportable 12/25/19 03:47 Hypochromasia Not Reportable 12/25/19 03:47 Poikilocytosis Not Reportable 12/25/19 03:47 Anisocytosis 1+ 12/25/19 03:47 Microcytosis Not Reportable 12/25/19 03:47 Macrocytosis Not Reportable 12/25/19 03:47 Spherocytes Not Reportable 12/25/19 03:47 Pappenheimer Bodies Not Reportable 12/25/19 03:47 Sickle Cells Not Reportable 12/25/19 03:47 Target Cells Not Reportable 12/25/19 03:47 Tear Drop Cells Not Reportable 12/25/19 03:47 Ovalocytes Not Reportable 12/25/19 03:47 Helmet Cells Not Reportable 12/25/19 03:47 Frias-Big Flat Bodies Not Reportable 12/25/19 03:47 Marion Rings Not Reportable 12/25/19 03:47 Jamshid Cells Not Reportable 12/25/19 03:47 Bite Cells Not Reportable 12/25/19 03:47 Crenated Cell Not Reportable 12/25/19 03:47 Elliptocytes Not Reportable 12/25/19 03:47 Acanthocytes (Spur) Not Reportable 12/25/19 03:47 Rouleaux Not Reportable 12/25/19 03:47 Hemoglobin C Crystals Not Reportable 12/25/19 03:47 Schistocytes Not Reportable 12/25/19 03:47 Malaria parasites Not Reportable 12/25/19 03:47 Gregg Bodies Not Reportable 12/25/19 03:47 Hem Pathologist Commnt No 12/25/19 03:47 PT 17.0 Sec. (12.2-14.9) H 11/23/19 03:47 INR 1.36 (0.87-1.13) H 11/23/19 03:47 APTT 128.2 Sec. (24.2-36.6) H* 11/23/19 03:47 Heparin Anti-Xa Level 0.31 U.I./ml (0.3-0.7) 11/23/19 09:03 ABG pH 7.433 pH Units (7.350-7.450) 03/08/20 13:25 ABG pCO2 40.2 mm Hg 03/08/20 13:25 ABG pO2 71.1 mm Hg (80.0-90.0) L 03/08/20 13:25 ABG HCO3 26.2 mmol/L (20.0-26.0) H 03/08/20 13:25 ABG O2 Saturation 97.0 % (95.0-99.0) 03/08/20 13:25 ABG O2 Content 11.0 (0.0-44) 03/08/20 13:25 ABG Base Excess 1.8 mmol/L (-2.0-3.0) 03/08/20 13:25 ABG Hemoglobin 8.2 gm/dl (12.0-16.0) L 03/08/20 13:25 ABG Carboxyhemoglobin 1.7 % (0.0-5.0) 03/08/20 13:25 ABG Methemoglobin 0.5 % (0.0-1.5) 03/08/20 13:25 Oxyhemoglobin 94.8 % (95.0-99.0) L 03/08/20 13:25 FiO2 21 % 03/08/20 13:25 Sodium 144 mmol/L (137-145) 04/16/20 05:00 Potassium 3.2 mmol/L (3.6-5.0) L 04/16/20 05:00 Chloride 107.4 mmol/L (98-107) H 04/16/20 05:00 Carbon Dioxide 23 mmol/L (22-30) 04/16/20 05:00 Anion Gap 17 mmol/L 04/16/20 05:00 BUN 16 mg/dL (7-17) 04/16/20 05:00 Creatinine 0.4 mg/dL (0.7-1.2) L 04/16/20 05:00 Estimated GFR > 60 ml/min 04/16/20 05:00 BUN/Creatinine Ratio 40 % 04/16/20 05:00 Glucose 73 mg/dL (65-100) 04/16/20 05:00 POC Glucose 172 (70-105) H 04/24/20 18:35 Lactic Acid 1.80 mmol/L (0.7-2.0) 11/25/19 05:05 Calcium 10.0 mg/dL (8.4-10.2) 04/16/20 05:00 Ionized Calcium 4.5 mg/dL (4.8-5.6) L 11/23/19 06:32 Phosphorus 4.20 mg/dL (2.5-4.5) D 11/28/19 08:59 Magnesium 1.90 mg/dL (1.7-2.3) 02/28/20 03:40 Total Bilirubin 0.40 mg/dL (0.1-1.2) 12/13/19 07:48 AST 27 units/L (5-40) 12/13/19 07:48 ALT 26 units/L (7-56) 12/13/19 07:48 Alkaline Phosphatase 316 units/L (35-129) H 12/13/19 07:48 Ammonia 42.0 umol/L (25-60) 11/29/19 13:41 Total Creatine Kinase 139 units/L (30-135) H 11/22/19 23:27 CK-MB (CK-2) 8.3 ng/mL (0.0-4.0) H 11/22/19 23:27 CK-MB (CK-2) Rel Index 5.9 (0-4) H 11/22/19 23:27 Troponin T < 0.010 ng/mL (0.00-0.029) 11/22/19 23:27 Total Protein 6.8 g/dL (6.3-8.2) 12/13/19 07:48 Albumin 2.4 g/dL (3.9-5) L 12/13/19 07:48 Albumin/Globulin Ratio 0.5 % 12/13/19 07:48 Lipase 18 units/L (13-60) 11/23/19 00:34 Procalcitonin 1.09 ng/mL (<0.15) 11/23/19 04:53 TSH 1.010 mlU/mL (0.270-4.200) 02/12/20 07:36 Free T4 1.08 ng/dL (0.76-1.46) 02/12/20 07:36 Urine Color Yellow (Yellow) 12/16/19 Unknown Urine Turbidity Slightly-cloudy (Clear) 12/16/19 Unknown Urine pH 5.0 (5.0-7.0) 12/16/19 Unknown Ur Specific Walton 1.018 (1.003-1.030) 12/16/19 Unknown Urine Protein 30 mg/dl mg/dL (Negative) 12/16/19 Unknown Urine Glucose (UA) Neg mg/dL (Negative) 12/16/19 Unknown Urine Ketones Neg mg/dL (Negative) 12/16/19 Unknown Urine Blood Sm (Negative) 12/16/19 Unknown Urine Nitrite Neg (Negative) 12/16/19 Unknown Urine Bilirubin Neg (Negative) 12/16/19 Unknown Urine Urobilinogen < 2.0 mg/dL (<2.0) 12/16/19 Unknown Ur Leukocyte Esterase Neg (Negative) 12/16/19 Unknown Urine WBC (Auto) 6.0 /HPF (0.0-6.0) 12/16/19 Unknown Urine RBC (Auto) 9.0 /HPF (0.0-6.0) 12/16/19 Unknown U Epithel Cells (Auto) < 1.0 /HPF (0-13.0) 12/16/19 Unknown Urine Bacteria (Auto) 2+ /HPF (Negative) 11/22/19 23:17 Hyaline Casts 3 /LPF 12/16/19 Unknown Granular Casts 3 /LPF 12/16/19 Unknown Urine Mucus Few /HPF 12/16/19 Unknown Vancomycin Trough 33.8 ug/mL (5.0-20.0) H 12/21/19 08:56 Random Vancomycin 16.2 ug/mL (0-40.0) 12/24/19 04:31 Salicylates < 0.3 mg/dL (2.8-20.0) L 11/22/19 23:27 Urine Opiates Screen Presumptive negative 11/22/19 23:17 Urine Methadone Screen Presumptive negative 11/22/19 23:17 Acetaminophen < 5.0 ug/mL (10.0-30.0) L 11/22/19 23:27 Ur Barbiturates Screen Presumptive negative 11/22/19 23:17 Ur Phencyclidine Scrn Presumptive negative 11/22/19 23:17 Ur Amphetamines Screen Presumptive negative 11/22/19 23:17 U Benzodiazepines Scrn Presumptive negative 11/22/19 23:17 Urine Cocaine Screen Presumptive negative 11/22/19 23:17 U Marijuana (THC) Screen Presumptive negative 11/22/19 23:17 Drugs of Abuse Note Disclamer 11/22/19 23:17 Plasma/Serum Alcohol 0.08 % (0-0.07) H 11/22/19 23:27 Coronavirus (PCR) Negative (Negative) 02/05/20 07:50 Hepatitis A IgM Ab Non-reactive (NonReactive) 11/23/19 01:19 Hep Bs Antigen Non-reactive (Negative) 11/23/19 01:19 Hep B Core IgM Ab Non-reactive (NonReactive) 11/23/19 01:19 Hepatitis C Antibody Non-reactive (NonReactive) 11/23/19 01:19 Blood Type O POSITIVE 12/21/19 14:54 Antibody Screen Negative 12/21/19 14:54 Crossmatch See Detail 12/21/19 14:54 - Diagnostic Impressions Diagnostic Impressions: Echocardiogram 11/23/19 03:58 Transthoracic Echocardiogram Indication: Cardiac arrest BP: 131/89 HR: 115 Conclusions *The study quality is technically difficult. *Global left ventricular wall motion and contractility are within normal limits. *The estimated ejection fraction is 55-60%. *Abnormal left ventricular diastolic filling is observed, consistent with impaired relaxation. *There is no pericardial effusion. Findings Procedure Info: The study quality is technically difficult. The study was technically limited due to the patient's inability to lay in the left lateral decubitus position. Left Ventricle: The left ventricular chamber size is normal. There is no left ventricular hypertrophy. Global left ventricular wall motion and contractility are within normal limits. Global left ventricular systolic function is normal. The estimated ejection fraction is 55-60%. Abnormal left ventricular diastolic filling is observed, consistent with impaired relaxation. Left Atrium: The left atrial chamber size is normal. Aortic Valve: The aortic valve leaflets are mildly thickened. Mitral Valve: The mitral valve leaflets are mildly thickened. There is no evidence of mitral regurgitation. Tricuspid Valve: The tricuspid valve leaflets are normal. There is trace tricuspid regurgitation. The right ventricular systolic pressure is calculated at 33 mmHg. Pulmonic Valve: The pulmonic valve appears normal. Pericardium: The pericardium appears normal. There is no pericardial effusion. Aorta: The aorta appears normal. Venous: The inferior vena cava appears normal in size. Measurements Chambers 2D Name Value Normal Range IVSd (2D) 0.94 cm (0.6 - 1.1) LVPWd (2D) 0.81 cm (0.6 - 1.1) LVIDd (2D) 3.6 cm (3.7 - 5.6) LVIDs (2D) 2.27 cm (2 - 3.8) LV FS (2D) 36.93 % - EF Teichholz (2D) 67.76 % - Ao root diameter (2D) 3.03 cm (2 - 3.7) Volumes/Mass Name Value Normal Range LA ESV SP 4CH (A/L) 16.89 ml - LA ESV SP 4CH (MOD) 15.52 ml - Diastolic/Systolic Function Name Value Normal Range MV E-wave Vmax 0.55 m/sec - MV deceleration time 200.89 msec - MV A-wave Vmax 0.68 m/sec - MV E:A ratio 0.82 ratio - Aortic Valve Name Value Normal Range AV Vmax 1.1 m/sec - AV VTI 15.9 cm - AV peak gradient 4.86 mmHg - AV mean gradient 2.59 mmHg - LVOT diameter 2 cm - LVOT Vmax 1.03 m/sec - LVOT VTI 15.87 cm - LVOT peak gradient 4.24 mmHg - LVOT mean gradient 2.41 mmHg - SV LVOT 49.77 ml - JOSÉ MIGUEL (continuity Vmax) 2.93 cm2 - JOSÉ MIGUEL (continuity VTI) 3.13 cm2 - Tricuspid Valve Name Value Normal Range TR Vmax 2.74 m/sec - TR peak gradient 303 mmHg - RAP 3 mmHg - RVSP 33 mmHg - IVC diameter 1.77 cm (1.2 - 2.3) Pulmonic Valve/Qp:Qs Name Value Normal Range PV Vmax 0.77 m/sec - PV peak gradient 2.4 mmHg - PV acceleration time 114.18 msec - Echocardiogram Limited Views 12/17/19 14:53 Transthoracic Echocardiogram Indication: R/O Vegetations BP: 144/83 HR: 133 Conclusions *Global left ventricular systolic function is mildly decreased. *The estimated ejection fraction is 45-50%. *A trivial pericardial effusion is visualized. Findings Left Ventricle: The left ventricular chamber size is normal. Global left ventricular systolic function is mildly decreased. The estimated ejection fraction is 45-50%. Left Atrium: The left atrial chamber size is normal. Right Ventricle: The right ventricular cavity size is normal. Right Atrium: The right atrial cavity size is normal. Aortic Valve: The aortic valve is not well visualized. There is no evidence of aortic regurgitation. Mitral Valve: The mitral valve leaflets are mildly thickened. There is trace of mitral regurgitation. Tricuspid Valve: The tricuspid valve leaflets are mildly thickened. There is trace tricuspid regurgitation. The right ventricular systolic pressure is calculated at 29 mmHg. Pulmonic Valve: The pulmonic valve is not well visualized. There is no evidence of pulmonic regurgitation. Pericardium: A trivial pericardial effusion is visualized. Aorta: There is no dilatation of the ascending aorta. There is no dilatation of the aortic root. Venous: The inferior vena cava appears normal in size. There is a greater than 50% respiratory change in the inferior vena cava dimension. Measurements Chambers 2D Name Value Normal Range IVSd (2D) 0.83 cm (0.6 - 1.1) LVPWd (2D) 0.98 cm (0.6 - 1.1) LVIDd (2D) 3.71 cm (3.7 - 5.6) LVIDs (2D) 2.93 cm (2 - 3.8) LV FS (2D) 21.12 % - EF Teichholz (2D) 43.71 % - Ao root diameter (2D) 3.02 cm (2 - 3.7) Volumes/Mass Name Value Normal Range LA ESV SP 4CH (A/L) 36.8 ml - LA ESV SP 2CH (A/L) 45.89 ml - LA ESV BP (A/L) 42.35 ml - LA ESV BP (A/L) index 26.63 ml/m2 - LA ESV SP 4CH (MOD) 34.42 ml - LA ESV SP 2CH (MOD) 44.21 ml - LA ESV BP (MOD) 39.82 ml - LA ESV BP (MOD) index 25.05 ml/m2 - Aortic Valve Name Value Normal Range LVOT diameter 1.63 cm - Tricuspid Valve Name Value Normal Range TR Vmax 2.56 m/sec - TR peak gradient 26 mmHg - RAP 3 mmHg - RVSP 29 mmHg - IVC diameter 1.83 cm (1.2 - 2.3) Dela Cruz/IV: Voiding Method Incontinent IV Catheter Type [Forearm] Peripheral IV IV Catheter Type [Left Forearm INT / Saline Lock ] IV Catheter Type [Right INT / Saline Lock Antecubital] IV Catheter Type [Right Hand] INT / Saline Lock IV Catheter Type [Right Wrist] Peripheral IV IV Catheter Type [Left Wrist] Peripheral IV IV Catheter Type [Left Peripheral IV Antecubital] IV Catheter Type [Right INT / Saline Lock Forearm] IV Catheter Type [Left Hand] INT / Saline Lock Active Medications - Current Medications Current Medications: Generic Name Dose Route Start Last Admin Trade Name Freq PRN Reason Stop Dose Admin Albuterol 2.5 mg 03/25/20 19:25 04/07/20 08:59 Proventil IH 2.5 mg Q4HRT PRN Administration Shortness Of Breath Lipase/Protease/Amylase 1 each 11/23/19 11:[address] 10,500 Unit FEEDTUBE PRN PRN Use w/ sod bicarb for FT Bisacodyl 10 mg 02/06/20 13:[address] QDAY PRN Constipation unrelieved by MOM Enoxaparin Sodium 40 mg 03/07/20 22:00 04/23/20 22:49 Enoxaparin SUB-Q 40 mg QDAY@2200 LUCHO Administration Glycopyrrolate 2 mg 12/31/19 20:00 04/24/20 14:07 Robinul PO Not Given TID LUCHO Haloperidol Lactate 5 mg 03/05/20 09:22 04/24/20 09:46 Haldol IM 5 mg Q6H PRN Administration Agitation Hydroxyzine Pamoate 25 mg 12/06/19 10:00 04/24/20 09:47 Vistaril PO 25 mg BID LUCHO Administration Lansoprazole 30 mg 11/27/19 10:00 04/24/20 09:47 Prevacid Solutab FEEDTUBE 30 mg QDAY LUCHO Administration Levetiracetam 500 mg 11/29/19 10:00 04/24/20 09:46 Keppra PO 500 mg BID LUCHO Administration Mirtazapine 30 mg 12/06/19 10:00 04/24/20 09:47 Remeron PO 30 mg DAILY LUCHO Administration Nicotine 21 mg 02/16/20 13:00 04/24/20 09:46 Habitrol TD 21 mg QDAY LUCHO Administration Ondansetron HCl 4 mg 12/10/19 07:53 02/25/20 02:51 Zofran IV 4 mg Q4H PRN Administration Nausea And Vomiting Polyethylene Glycol 17 gm 02/06/20 13:57 Miralax 3350 PO QDAY PRN Constipation Quetiapine Fumarate 100 mg 03/06/20 10:00 04/24/20 09:46 Seroquel FEEDTUBE 100 mg BID LUCHO Administration Scopolamine 1 each 02/08/20 15:00 04/23/20 09:15 Transderm-Scop TD 1 each Q3D LUCHO Administration Sertraline HCl 25 mg 01/01/20 10:00 04/24/20 09:47 Zoloft PO 25 mg QDAY LUCHO Administration Simple Syrup 15 ml 11/23/19 11:50 Simple Syrup FEEDTUBE PRN PRN Hypoglycemia BG<70 Simple Syrup 30 ml 11/23/19 11:50 Simple Syrup FEEDTUBE PRN PRN Hypoglycemia Sodium Bicarbonate 325 mg 11/23/19 11:50 Sodium Bicarbonate FEEDTUBE PRN PRN For Clogged Feeding Tube Nutrition/Malnutrition Assess - Dietary Evaluation Nutrition/Malnutrition Findings: Nutrition Notes Start: 11/23/19 11:29 Freq: Status: Active Protocol: Document 04/23/20 14:33 NHALL (Rec: 04/23/20 14:35 EVELIA LUCERO- [email or web address]) Nutrition Notes Initial or Follow up Reassessment Other Pertinent Diagnosis s/p Cardiac arrest, acute metabolic encephalopathy Current Diet Mech soft with chopped meats Labs/Tests Reviewed Pertinent Medications Reviewed Height 5 ft 6 in Weight 43.5 kg [place] Body Weight (kg) 59.09 BMI 15.5 Subjective/Other Information Pt has consumed 79% of meals since last assessment. Percent of energy/protein needs met: 100% energy 100% pro Burn Absent Trauma Absent Current % PO Good (75-100%) #2 Nutrition Diagnosis Malnutrition Diagnosis Progress(for reassessment Continues documentation) Is patient on ventilator? No Is Patient Ambulatory and/or Out of Bed No REE-([facility]-confined to bed) 1260.864 Kcal/Kg value to use for calculation 35 Approximate Energy Requirements Using 1523 kcal/Kg Calculation Used for Recommendations Kcal/kg Additional Notes Pro needs 1.2-1.5g/k-65g/ day Fluid needs 1ml/kcal Nutrition Intervention Goal #1 PO intake of meals plus ONS to meet 100% energy and pro needs Goal #2 Wt maintenance and/or gain Revisit per MD consult or patient Sign Off request:
[2020-04-24] MEDS: ENOXAPARIN 40 MG/0.4 ML INJ SUB-Q SCH (22:20)
[2020-04-25] MEDS: HALOPERIDOL LACTATE 5 MG/1 ML INJ IM PRN ×2 (00:33→18:16)
[2020-04-25] MEDS: NICOTINE 21 MG/24 HR PATCH TD SCH (10:40)
[2020-04-25] MEDS: SERTRALINE 50 MG TAB PO SCH (10:40)
[2020-04-25] MEDS: LANSOPRAZOLE 30 MG SOLUTAB FEEDTUBE SCH (10:40)
[2020-04-25] MEDS: GLYCOPYRROLATE 1 MG TAB PO SCH ×3 (10:40→21:06)
[2020-04-25] MEDS: QUEtiapine 100 MG TAB FEEDTUBE SCH ×2 (10:40→21:06)
[2020-04-25] MEDS: MIRTAZAPINE 30 MG TAB PO SCH (10:41)
[2020-04-25] MEDS: levETIRAcetam 500 MG/5 ML ORAL LIQD PO SCH ×2 (10:41→21:06)
[2020-04-25] MEDS: hydrOXYzine PAMOATE 25 MG CAP PO SCH ×2 (10:41→21:06)
--- NOTE | 2020-04-25 18:12 | Progress Note ---
Assessment and Plan - Patient Problems (1) Anoxic brain injury Current Visit: Yes Status: Acute Plan to address problem: Supportive care, continue current therapy. Aspiration precautions, seizure precautions. (2) Anoxic encephalopathy Current Visit: Yes Status: Acute Plan to address problem: Supportive care, aspiration precautions, seizure precautions, supportive care. (3) Acute respiratory failure Current Visit: Yes Status: Acute Qualifiers: Respiratory failure complication: hypoxia Qualified Code(s): J96.01 - Acute respiratory failure with hypoxia Plan to address problem: Patient is status post tracheostomy and PEG tube placement. Continue supplemental oxygen. (4) Seizure disorder Current Visit: Yes Status: Acute Plan to address problem: Continue Keppra therapy, seizure precautions, supportive care. (5) DVT prophylaxis Current Visit: Yes Status: Acute Plan to address problem: SCD to bilateral lower extremities while in bed, prophylactic Lovenox (6) Advance care planning Current Visit: Yes Status: Acute Plan to address problem: Patient is DNR, supportive care, discharge planning conducted, discussed with case management. +30 minutes. History Interval history: 55 YO Female HD #33 with TATIANA S/P Cardiac Arrest, Anoxic Encephalopathy, Severe Malnutrition, Acute/Chronic Respiratory Failure S/P Trach and Peg placement who is currently pending placement. Patient is resting comfortably in bed. No acute decompensation overnight. No reported nursing events. Case management consulted for discharge planning/placement. Hospitalist Physical - Constitutional Vitals: Temp Pulse Resp BP Pulse Ox 98.0 F 75 20 137/90 80 L 04/25/20 15:14 04/25/20 15:14 04/25/20 15:14 04/25/20 15:14 04/25/20 15:14 General appearance: Present: no acute distress, cachectic - EENT Eyes: Present: miosis - Neck Neck: Present: supple - Respiratory Respiratory effort: labored Respiratory: bilateral: diminished - Cardiovascular Rhythm: regular Heart Sounds: Present: S1 & S2 Peripheral Pulses: within normal limits - Abdominal General gastrointestinal: soft, non-tender, non-distended - Integumentary Integumentary: Present: clear, dry - Psychiatric Psychiatric: no appropriate mood/affect, no intact judgment & insight, no memory intact - Neurologic Neurologic: no gait normal HEART Score - HEART Score Troponin: Troponin T < 0.010 ng/mL (0.00-0.029) 11/22/19 23:27 Results - Labs CBC & Chem 7: 04/16/20 09:02 04/16/20 05:00 Labs: Laboratory Last Values WBC 6.7 K/mm3 (4.5-11.0) 04/16/20 09:02 RBC 4.13 M/mm3 (3.65-5.03) 04/16/20 09:02 Hgb 11.8 gm/dl (10.1-14.3) 04/16/20 09:02 Hct 37.0 % (30.3-42.9) 04/16/20 09:02 MCV 90 fl (79-97) 04/16/20 09:02 MCH 29 pg (28-32) 04/16/20 09:02 MCHC 32 % (30-34) 04/16/20 09:02 RDW 14.3 % (13.2-15.2) 04/16/20 09:02 Plt Count 502 K/mm3 (140-440) H 04/16/20 09:02 Lymph % (Auto) 25.9 % (13.4-35.0) 04/16/20 09:02 [place] % (Auto) 7.4 % (0.0-7.3) H 04/16/20 09:02 Eos % (Auto) 0.9 % (0.0-4.3) 04/16/20 09:02 Baso % (Auto) 0.8 % (0.0-1.8) 04/16/20 09:02 Lymph # 1.7 K/mm3 (1.2-5.4) 04/16/20 09:02 [place] # 0.5 K/mm3 (0.0-0.8) 04/16/20 09:02 Eos # 0.1 K/mm3 (0.0-0.4) 04/16/20 09:02 Baso # 0.1 K/mm3 (0.0-0.1) 04/16/20 09:02 Add Manual Diff Complete 12/25/19 03:47 Total Counted 200 12/25/19 03:47 Seg Neutrophils % 65.0 % (40.0-70.0) 04/16/20 09:02 Seg Neuts % (Manual) 97.5 % (40.0-70.0) H 12/25/19 03:47 Band Neutrophils % 0 % 12/25/19 03:47 Lymphocytes % (Manual) 1.0 % (13.4-35.0) L 12/25/19 03:47 Reactive Lymphs % (Man) 0 % 12/25/19 03:47 Monocytes % (Manual) 1.5 % (0.0-7.3) 12/25/19 03:47 Eosinophils % (Manual) 0 % (0.0-4.3) 12/25/19 03:47 Basophils % (Manual) 0 % (0.0-1.8) 12/25/19 03:47 Metamyelocytes % 0 % 12/25/19 03:47 Myelocytes % 0 % 12/25/19 03:47 Promyelocytes % 0 % 12/25/19 03:47 Blast Cells % 0 % 12/25/19 03:47 Nucleated RBC % Not Reportable 12/25/19 03:47 Seg Neutrophils # 4.4 K/mm3 (1.8-7.7) 04/16/20 09:02 Seg Neutrophils # Man 35.3 K/mm3 (1.8-7.7) H 12/25/19 03:47 Band Neutrophils # 0.0 K/mm3 12/25/19 03:47 Lymphocytes # (Manual) 0.4 K/mm3 (1.2-5.4) L 12/25/19 03:47 Abs React Lymphs (Man) 0.0 K/mm3 12/25/19 03:47 Monocytes # (Manual) 0.5 K/mm3 (0.0-0.8) 12/25/19 03:47 Eosinophils # (Manual) 0.0 K/mm3 (0.0-0.4) 12/25/19 03:47 Basophils # (Manual) 0.0 K/mm3 (0.0-0.1) 12/25/19 03:47 Metamyelocytes # 0.0 K/mm3 12/25/19 03:47 Myelocytes # 0.0 K/mm3 12/25/19 03:47 Promyelocytes # 0.0 K/mm3 12/25/19 03:47 Blast Cells # 0.0 K/mm3 12/25/19 03:47 Pathologist Review 12/13/19 07:48 WBC Morphology Not Reportable 12/25/19 03:47 Hypersegmented Neuts Not Reportable 12/25/19 03:47 Hyposegmented Neuts Not Reportable 12/25/19 03:47 Hypogranular Neuts Not Reportable 12/25/19 03:47 Smudge Cells Not Reportable 12/25/19 03:47 Toxic Granulation Not Reportable 12/25/19 03:47 Toxic Vacuolation Not Reportable 12/25/19 03:47 Dohle Bodies Not Reportable 12/25/19 03:47 Pelger-Huet Anomaly Not Reportable 12/25/19 03:47 Dominique Rods Not Reportable 12/25/19 03:47 Platelet Estimate Consistent w auto 12/25/19 03:47 Clumped Platelets Not Reportable 12/25/19 03:47 Plt Clumps, EDTA Not Reportable 12/25/19 03:47 Large Platelets Not Reportable 12/25/19 03:47 Giant Platelets Not Reportable 12/25/19 03:47 Platelet Satelliting Not Reportable 12/25/19 03:47 Plt Morphology Comment Not Reportable 12/25/19 03:47 RBC Morphology Not Reportable 12/25/19 03:47 Dimorphic RBCs Not Reportable 12/25/19 03:47 Polychromasia Not Reportable 12/25/19 03:47 Hypochromasia Not Reportable 12/25/19 03:47 Poikilocytosis Not Reportable 12/25/19 03:47 Anisocytosis 1+ 12/25/19 03:47 Microcytosis Not Reportable 12/25/19 03:47 Macrocytosis Not Reportable 12/25/19 03:47 Spherocytes Not Reportable 12/25/19 03:47 Pappenheimer Bodies Not Reportable 12/25/19 03:47 Sickle Cells Not Reportable 12/25/19 03:47 Target Cells Not Reportable 12/25/19 03:47 Tear Drop Cells Not Reportable 12/25/19 03:47 Ovalocytes Not Reportable 12/25/19 03:47 Helmet Cells Not Reportable 12/25/19 03:47 Frias-Navarino Bodies Not Reportable 12/25/19 03:47 Henefer Rings Not Reportable 12/25/19 03:47 Pomerene Cells Not Reportable 12/25/19 03:47 Bite Cells Not Reportable 12/25/19 03:47 Crenated Cell Not Reportable 12/25/19 03:47 Elliptocytes Not Reportable 12/25/19 03:47 Acanthocytes (Spur) Not Reportable 12/25/19 03:47 Rouleaux Not Reportable 12/25/19 03:47 Hemoglobin C Crystals Not Reportable 12/25/19 03:47 Schistocytes Not Reportable 12/25/19 03:47 Malaria parasites Not Reportable 12/25/19 03:47 Gregg Bodies Not Reportable 12/25/19 03:47 Hem Pathologist Commnt No 12/25/19 03:47 PT 17.0 Sec. (12.2-14.9) H 11/23/19 03:47 INR 1.36 (0.87-1.13) H 11/23/19 03:47 APTT 128.2 Sec. (24.2-36.6) H* 11/23/19 03:47 Heparin Anti-Xa Level 0.31 U.I./ml (0.3-0.7) 11/23/19 09:03 ABG pH 7.433 pH Units (7.350-7.450) 03/08/20 13:25 ABG pCO2 40.2 mm Hg 03/08/20 13:25 ABG pO2 71.1 mm Hg (80.0-90.0) L 03/08/20 13:25 ABG HCO3 26.2 mmol/L (20.0-26.0) H 03/08/20 13:25 ABG O2 Saturation 97.0 % (95.0-99.0) 03/08/20 13:25 ABG O2 Content 11.0 (0.0-44) 03/08/20 13:25 ABG Base Excess 1.8 mmol/L (-2.0-3.0) 03/08/20 13:25 ABG Hemoglobin 8.2 gm/dl (12.0-16.0) L 03/08/20 13:25 ABG Carboxyhemoglobin 1.7 % (0.0-5.0) 03/08/20 13:25 ABG Methemoglobin 0.5 % (0.0-1.5) 03/08/20 13:25 Oxyhemoglobin 94.8 % (95.0-99.0) L 03/08/20 13:25 FiO2 21 % 03/08/20 13:25 Sodium 144 mmol/L (137-145) 04/16/20 05:00 Potassium 3.2 mmol/L (3.6-5.0) L 04/16/20 05:00 Chloride 107.4 mmol/L (98-107) H 04/16/20 05:00 Carbon Dioxide 23 mmol/L (22-30) 04/16/20 05:00 Anion Gap 17 mmol/L 04/16/20 05:00 BUN 16 mg/dL (7-17) 04/16/20 05:00 Creatinine 0.4 mg/dL (0.7-1.2) L 04/16/20 05:00 Estimated GFR > 60 ml/min 04/16/20 05:00 BUN/Creatinine Ratio 40 % 04/16/20 05:00 Glucose 73 mg/dL (65-100) 04/16/20 05:00 POC Glucose 172 (70-105) H 04/24/20 18:35 Lactic Acid 1.80 mmol/L (0.7-2.0) 11/25/19 05:05 Calcium 10.0 mg/dL (8.4-10.2) 04/16/20 05:00 Ionized Calcium 4.5 mg/dL (4.8-5.6) L 11/23/19 06:32 Phosphorus 4.20 mg/dL (2.5-4.5) D 11/28/19 08:59 Magnesium 1.90 mg/dL (1.7-2.3) 02/28/20 03:40 Total Bilirubin 0.40 mg/dL (0.1-1.2) 12/13/19 07:48 AST 27 units/L (5-40) 12/13/19 07:48 ALT 26 units/L (7-56) 12/13/19 07:48 Alkaline Phosphatase 316 units/L (35-129) H 12/13/19 07:48 Ammonia 42.0 umol/L (25-60) 11/29/19 13:41 Total Creatine Kinase 139 units/L (30-135) H 11/22/19 23:27 CK-MB (CK-2) 8.3 ng/mL (0.0-4.0) H 11/22/19 23:27 CK-MB (CK-2) Rel Index 5.9 (0-4) H 11/22/19 23:27 Troponin T < 0.010 ng/mL (0.00-0.029) 11/22/19 23:27 Total Protein 6.8 g/dL (6.3-8.2) 12/13/19 07:48 Albumin 2.4 g/dL (3.9-5) L 12/13/19 07:48 Albumin/Globulin Ratio 0.5 % 12/13/19 07:48 Lipase 18 units/L (13-60) 11/23/19 00:34 Procalcitonin 1.09 ng/mL (<0.15) 11/23/19 04:53 TSH 1.010 mlU/mL (0.270-4.200) 02/12/20 07:36 Free T4 1.08 ng/dL (0.76-1.46) 02/12/20 07:36 Urine Color Yellow (Yellow) 12/16/19 Unknown Urine Turbidity Slightly-cloudy (Clear) 12/16/19 Unknown Urine pH 5.0 (5.0-7.0) 12/16/19 Unknown Ur Specific [place] 1.018 (1.003-1.030) 12/16/19 Unknown Urine Protein 30 mg/dl mg/dL (Negative) 12/16/19 Unknown Urine Glucose (UA) Neg mg/dL (Negative) 12/16/19 Unknown Urine Ketones Neg mg/dL (Negative) 12/16/19 Unknown Urine Blood Sm (Negative) 12/16/19 Unknown Urine Nitrite Neg (Negative) 12/16/19 Unknown Urine Bilirubin Neg (Negative) 12/16/19 Unknown Urine Urobilinogen < 2.0 mg/dL (<2.0) 12/16/19 Unknown Ur Leukocyte Esterase Neg (Negative) 12/16/19 Unknown Urine WBC (Auto) 6.0 /HPF (0.0-6.0) 12/16/19 Unknown Urine RBC (Auto) 9.0 /HPF (0.0-6.0) 12/16/19 Unknown U Epithel Cells (Auto) < 1.0 /HPF (0-13.0) 12/16/19 Unknown Urine Bacteria (Auto) 2+ /HPF (Negative) 11/22/19 23:17 Hyaline Casts 3 /LPF 12/16/19 Unknown Granular Casts 3 /LPF 12/16/19 Unknown Urine Mucus Few /HPF 12/16/19 Unknown Vancomycin Trough 33.8 ug/mL (5.0-20.0) H 12/21/19 08:56 Random Vancomycin 16.2 ug/mL (0-40.0) 12/24/19 04:31 Salicylates < 0.3 mg/dL (2.8-20.0) L 11/22/19 23:27 Urine Opiates Screen Presumptive negative 11/22/19 23:17 Urine Methadone Screen Presumptive negative 11/22/19 23:17 Acetaminophen < 5.0 ug/mL (10.0-30.0) L 11/22/19 23:27 Ur Barbiturates Screen Presumptive negative 11/22/19 23:17 Ur Phencyclidine Scrn Presumptive negative 11/22/19 23:17 Ur Amphetamines Screen Presumptive negative 11/22/19 23:17 U Benzodiazepines Scrn Presumptive negative 11/22/19 23:17 Urine Cocaine Screen Presumptive negative 11/22/19 23:17 U Marijuana (THC) Screen Presumptive negative 11/22/19 23:17 Drugs of Abuse Note Disclamer 11/22/19 23:17 Plasma/Serum Alcohol 0.08 % (0-0.07) H 11/22/19 23:27 Coronavirus (PCR) Negative (Negative) 02/05/20 07:50 Hepatitis A IgM Ab Non-reactive (NonReactive) 11/23/19 01:19 Hep Bs Antigen Non-reactive (Negative) 11/23/19 01:19 Hep B Core IgM Ab Non-reactive (NonReactive) 11/23/19 01:19 Hepatitis C Antibody Non-reactive (NonReactive) 11/23/19 01:19 Blood Type O POSITIVE 12/21/19 14:54 Antibody Screen Negative 12/21/19 14:54 Crossmatch See Detail 12/21/19 14:54 - Diagnostic Impressions Diagnostic Impressions: Echocardiogram 11/23/19 03:58 Transthoracic Echocardiogram Indication: Cardiac arrest BP: 131/89 HR: 115 Conclusions *The study quality is technically difficult. *Global left ventricular wall motion and contractility are within normal limits. *The estimated ejection fraction is 55-60%. *Abnormal left ventricular diastolic filling is observed, consistent with impaired relaxation. *There is no pericardial effusion. Findings Procedure Info: The study quality is technically difficult. The study was technically limited due to the patient's inability to lay in the left lateral decubitus position. Left Ventricle: The left ventricular chamber size is normal. There is no left ventricular hypertrophy. Global left ventricular wall motion and contractility are within normal limits. Global left ventricular systolic function is normal. The estimated ejection fraction is 55-60%. Abnormal left ventricular diastolic filling is observed, consistent with impaired relaxation. Left Atrium: The left atrial chamber size is normal. Aortic Valve: The aortic valve leaflets are mildly thickened. Mitral Valve: The mitral valve leaflets are mildly thickened. There is no evidence of mitral regurgitation. Tricuspid Valve: The tricuspid valve leaflets are normal. There is trace tricuspid regurgitation. The right ventricular systolic pressure is calculated at 33 mmHg. Pulmonic Valve: The pulmonic valve appears normal. Pericardium: The pericardium appears normal. There is no pericardial effusion. Aorta: The aorta appears normal. Venous: The inferior vena cava appears normal in size. Measurements Chambers 2D Name Value Normal Range IVSd (2D) 0.94 cm (0.6 - 1.1) LVPWd (2D) 0.81 cm (0.6 - 1.1) LVIDd (2D) 3.6 cm (3.7 - 5.6) LVIDs (2D) 2.27 cm (2 - 3.8) LV FS (2D) 36.93 % - EF Teichholz (2D) 67.76 % - Ao root diameter (2D) 3.03 cm (2 - 3.7) Volumes/Mass Name Value Normal Range LA ESV SP 4CH (A/L) 16.89 ml - LA ESV SP 4CH (MOD) 15.52 ml - Diastolic/Systolic Function Name Value Normal Range MV E-wave Vmax 0.55 m/sec - MV deceleration time 200.89 msec - MV A-wave Vmax 0.68 m/sec - MV E:A ratio 0.82 ratio - Aortic Valve Name Value Normal Range AV Vmax 1.1 m/sec - AV VTI 15.9 cm - AV peak gradient 4.86 mmHg - AV mean gradient 2.59 mmHg - LVOT diameter 2 cm - LVOT Vmax 1.03 m/sec - LVOT VTI 15.87 cm - LVOT peak gradient 4.24 mmHg - LVOT mean gradient 2.41 mmHg - SV LVOT 49.77 ml - JOSÉ MIGUEL (continuity Vmax) 2.93 cm2 - JOSÉ MIGUEL (continuity VTI) 3.13 cm2 - Tricuspid Valve Name Value Normal Range TR Vmax 2.74 m/sec - TR peak gradient 303 mmHg - RAP 3 mmHg - RVSP 33 mmHg - IVC diameter 1.77 cm (1.2 - 2.3) Pulmonic Valve/Qp:Qs Name Value Normal Range PV Vmax 0.77 m/sec - PV peak gradient 2.4 mmHg - PV acceleration time 114.18 msec - Echocardiogram Limited Views 12/17/19 14:53 Transthoracic Echocardiogram Indication: R/O Vegetations BP: 144/83 HR: 133 Conclusions *Global left ventricular systolic function is mildly decreased. *The estimated ejection fraction is 45-50%. *A trivial pericardial effusion is visualized. Findings Left Ventricle: The left ventricular chamber size is normal. Global left ventricular systolic function is mildly decreased. The estimated ejection fraction is 45-50%. Left Atrium: The left atrial chamber size is normal. Right Ventricle: The right ventricular cavity size is normal. Right Atrium: The right atrial cavity size is normal. Aortic Valve: The aortic valve is not well visualized. There is no evidence of aortic regurgitation. Mitral Valve: The mitral valve leaflets are mildly thickened. There is trace of mitral regurgitation. Tricuspid Valve: The tricuspid valve leaflets are mildly thickened. There is trace tricuspid regurgitation. The right ventricular systolic pressure is calculated at 29 mmHg. Pulmonic Valve: The pulmonic valve is not well visualized. There is no evidence of pulmonic regurgitation. Pericardium: A trivial pericardial effusion is visualized. Aorta: There is no dilatation of the ascending aorta. There is no dilatation of the aortic root. Venous: The inferior vena cava appears normal in size. There is a greater than 50% respiratory change in the inferior vena cava dimension. Measurements Chambers 2D Name Value Normal Range IVSd (2D) 0.83 cm (0.6 - 1.1) LVPWd (2D) 0.98 cm (0.6 - 1.1) LVIDd (2D) 3.71 cm (3.7 - 5.6) LVIDs (2D) 2.93 cm (2 - 3.8) LV FS (2D) 21.12 % - EF Teichholz (2D) 43.71 % - Ao root diameter (2D) 3.02 cm (2 - 3.7) Volumes/Mass Name Value Normal Range LA ESV SP 4CH (A/L) 36.8 ml - LA ESV SP 2CH (A/L) 45.89 ml - LA ESV BP (A/L) 42.35 ml - LA ESV BP (A/L) index 26.63 ml/m2 - LA ESV SP 4CH (MOD) 34.42 ml - LA ESV SP 2CH (MOD) 44.21 ml - LA ESV BP (MOD) 39.82 ml - LA ESV BP (MOD) index 25.05 ml/m2 - Aortic Valve Name Value Normal Range LVOT diameter 1.63 cm - Tricuspid Valve Name Value Normal Range TR Vmax 2.56 m/sec - TR peak gradient 26 mmHg - RAP 3 mmHg - RVSP 29 mmHg - IVC diameter 1.83 cm (1.2 - 2.3) [place]/IV: Voiding Method Incontinent IV Catheter Type [Forearm] Peripheral IV IV Catheter Type [Left Forearm INT / Saline Lock ] IV Catheter Type [Right INT / Saline Lock Antecubital] IV Catheter Type [Right Hand] INT / Saline Lock IV Catheter Type [Right Wrist] Peripheral IV IV Catheter Type [Left Wrist] Peripheral IV IV Catheter Type [Left Peripheral IV Antecubital] IV Catheter Type [Right INT / Saline Lock Forearm] IV Catheter Type [Left Hand] INT / Saline Lock Active Medications - Current Medications Current Medications: Generic Name Dose Route Start Last Admin Trade Name Luh PRN Reason Stop Dose Admin Albuterol 2.5 mg 03/25/20 19:25 04/07/20 08:59 Proventil IH 2.5 mg Q4HRT PRN Administration Shortness Of Breath Lipase/Protease/Amylase 1 each 11/23/19 11:50 Pancreaze 10,500 Unit FEEDTUBE PRN PRN Use w/ sod bicarb for FT Bisacodyl 10 mg 02/06/20 13:57 Dulcolax HI QDAY PRN Constipation unrelieved by MOM Enoxaparin Sodium 40 mg 03/07/20 22:00 04/24/20 22:20 Enoxaparin SUB-Q 40 mg QDAY@2200 LUCHO Administration Glycopyrrolate 2 mg 12/31/19 20:00 04/25/20 14:09 Robinul PO Not Given TID LUCHO Haloperidol Lactate 5 mg 03/05/20 09:22 04/25/20 00:33 Haldol IM 5 mg Q6H PRN Administration Agitation Hydroxyzine Pamoate 25 mg 12/06/19 10:00 04/25/20 10:41 Vistaril PO 25 mg BID LUCHO Administration Lansoprazole 30 mg 11/27/19 10:00 04/25/20 10:40 Prevacid Solutab FEEDTUBE 30 mg QDAY LUCHO Administration Levetiracetam 500 mg 11/29/19 10:00 04/25/20 10:41 Keppra PO 500 mg BID LUCHO Administration Mirtazapine 30 mg 12/06/19 10:00 04/25/20 10:41 Remeron PO 30 mg DAILY LUCHO Administration Nicotine 21 mg 02/16/20 13:00 04/25/20 10:40 Habitrol TD 21 mg QDAY LUCHO Administration Ondansetron HCl 4 mg 12/10/19 07:53 02/25/20 02:51 Zofran IV 4 mg Q4H PRN Administration Nausea And Vomiting Polyethylene Glycol 17 gm 02/06/20 13:57 Miralax 3350 PO QDAY PRN Constipation Quetiapine Fumarate 100 mg 03/06/20 10:00 04/25/20 10:40 Seroquel FEEDTUBE 100 mg BID LUCHO Administration Scopolamine 1 each 02/08/20 15:00 04/23/20 09:15 Transderm-Scop TD 1 each Q3D LUCHO Administration Sertraline HCl 25 mg 01/01/20 10:00 04/25/20 10:40 Zoloft PO 25 mg QDAY LUCHO Administration Simple Syrup 15 ml 11/23/19 11:50 Simple Syrup FEEDTUBE PRN PRN Hypoglycemia BG<70 Simple Syrup 30 ml 11/23/19 11:50 Simple Syrup FEEDTUBE PRN PRN Hypoglycemia Sodium Bicarbonate 325 mg 11/23/19 11:50 Sodium Bicarbonate FEEDTUBE PRN PRN For Clogged Feeding Tube Nutrition/Malnutrition Assess - Dietary Evaluation Nutrition/Malnutrition Findings: Nutrition Notes Start: 11/23/19 11:29 Freq: Status: Active Protocol: Document 04/23/20 14:33 EVELIA (Rec: 04/23/20 14:35 EVELIA [email or web address]) Nutrition Notes Initial or Follow up Reassessment Other Pertinent Diagnosis s/p Cardiac arrest, acute metabolic encephalopathy [facility] Labs/Tests Reviewed Pertinent Medications Reviewed Height 5 ft 6 in Weight 43.5 kg [place] Body Weight (kg) 59.09 BMI 15.5 Subjective/Other Information Pt has consumed 79% of meals since last assessment. Percent of energy/protein needs met: 100% energy 100% pro Burn Absent Trauma Absent Current % PO Good (75-100%) #2 Nutrition Diagnosis Malnutrition Diagnosis Progress(for reassessment Continues documentation) Is patient on ventilator? No Is Patient Ambulatory and/or Out of Bed No REE-([place]-confined to bed) 1260.864 Kcal/Kg value to use for calculation 35 Approximate Energy Requirements Using 1523 kcal/Kg Calculation Used for Recommendations Kcal/kg Additional Notes Pro needs 1.2-1.5g/k-65g/ day Fluid needs 1ml/kcal Nutrition Intervention Goal #1 PO intake of meals plus ONS to meet 100% energy and pro needs Goal #2 Wt maintenance and/or gain Revisit per MD consult or patient Sign Off request:
[2020-04-25] MEDS: ENOXAPARIN 40 MG/0.4 ML INJ SUB-Q SCH (21:06)
[2020-04-26] MEDS: LANSOPRAZOLE 30 MG SOLUTAB FEEDTUBE SCH (09:05)
[2020-04-26] MEDS: hydrOXYzine PAMOATE 25 MG CAP PO SCH ×2 (09:05→21:11)
[2020-04-26] MEDS: MIRTAZAPINE 30 MG TAB PO SCH (09:05)
[2020-04-26] MEDS: GLYCOPYRROLATE 1 MG TAB PO SCH ×3 (09:05→21:11)
[2020-04-26] MEDS: QUEtiapine 100 MG TAB FEEDTUBE SCH ×2 (09:05→21:11)
[2020-04-26] MEDS: SERTRALINE 50 MG TAB PO SCH (09:05)
[2020-04-26] MEDS: NICOTINE 21 MG/24 HR PATCH TD SCH (09:06)
[2020-04-26] MEDS: SCOPOLAMINE TRANSDERMAL PATCH 72 HR TD SCH (09:06)
[2020-04-26] MEDS: levETIRAcetam 500 MG/5 ML ORAL LIQD PO SCH ×2 (09:06→21:11)
[2020-04-26] MEDS: HALOPERIDOL LACTATE 5 MG/1 ML INJ IM PRN (11:52)
--- NOTE | 2020-04-26 13:00 | Progress Note ---
Assessment and Plan - Patient Problems (1) Anoxic brain injury Current Visit: Yes Status: Acute Plan to address problem: Supportive care, continue current therapy. Aspiration precautions, seizure precautions. (2) Anoxic encephalopathy Current Visit: Yes Status: Acute Plan to address problem: Supportive care, aspiration precautions, seizure precautions, supportive care. (3) Acute respiratory failure Current Visit: Yes Status: Acute Qualifiers: Respiratory failure complication: hypoxia Qualified Code(s): J96.01 - Acute respiratory failure with hypoxia Plan to address problem: Patient is status post tracheostomy and PEG tube placement. Continue supplemental oxygen. (4) Seizure disorder Current Visit: Yes Status: Acute Plan to address problem: Continue Keppra therapy, seizure precautions, supportive care. (5) DVT prophylaxis Current Visit: Yes Status: Acute Plan to address problem: SCD to bilateral lower extremities while in bed, prophylactic Lovenox (6) Advance care planning Current Visit: Yes Status: Acute Plan to address problem: Patient is DNR, supportive care, discharge planning conducted, discussed with case management. +30 minutes. History Interval history: 55 YO Female HD #34 with TATIANA S/P Cardiac Arrest, Anoxic Encephalopathy, Severe Malnutrition, Acute/Chronic Respiratory Failure S/P Trach and Peg placement who is currently pending placement. Patient is resting comfortably in bed. No acute decompensation overnight. No reported nursing events. Case management consulted for discharge planning/placement. Neurology reassessment requested as per case management for disability determination. Hospitalist Physical - Constitutional Vitals: Temp Pulse Resp BP Pulse Ox 97.9 F 108 H 18 163/93 100 04/26/20 08:34 04/26/20 08:34 04/26/20 08:34 04/26/20 08:34 04/26/20 08:34 General appearance: Present: no acute distress, cachectic - EENT ENT: hearing decreased - Neck Neck: Present: supple - Respiratory Respiratory effort: labored Respiratory: bilateral: diminished - Cardiovascular Rhythm: regular Heart Sounds: Present: S1 & S2 Peripheral Pulses: within normal limits - Abdominal General gastrointestinal: soft, non-tender, non-distended - Integumentary Integumentary: Present: clear, dry - Psychiatric Psychiatric: no appropriate mood/affect, no intact judgment & insight, no memory intact - Neurologic Neurologic: focal deficits, no moves all extremities, no gait normal HEART Score - HEART Score Troponin: Troponin T < 0.010 ng/mL (0.00-0.029) 11/22/19 23:27 Results - Labs CBC & Chem 7: 04/16/20 09:02 04/16/20 05:00 Labs: Laboratory Last Values WBC 6.7 K/mm3 (4.5-11.0) 04/16/20 09:02 RBC 4.13 M/mm3 (3.65-5.03) 04/16/20 09:02 Hgb 11.8 gm/dl (10.1-14.3) 04/16/20 09:02 Hct 37.0 % (30.3-42.9) 04/16/20 09:02 MCV 90 fl (79-97) 04/16/20 09:02 MCH 29 pg (28-32) 04/16/20 09:02 MCHC 32 % (30-34) 04/16/20 09:02 RDW 14.3 % (13.2-15.2) 04/16/20 09:02 Plt Count 502 K/mm3 (140-440) H 04/16/20 09:02 Lymph % (Auto) 25.9 % (13.4-35.0) 04/16/20 09:02 [place] % (Auto) 7.4 % (0.0-7.3) H 04/16/20 09:02 Eos % (Auto) 0.9 % (0.0-4.3) 04/16/20 09:02 Baso % (Auto) 0.8 % (0.0-1.8) 04/16/20 09:02 Lymph # 1.7 K/mm3 (1.2-5.4) 04/16/20 09:02 [place] # 0.5 K/mm3 (0.0-0.8) 04/16/20 09:02 Eos # 0.1 K/mm3 (0.0-0.4) 04/16/20 09:02 Baso # 0.1 K/mm3 (0.0-0.1) 04/16/20 09:02 Add Manual Diff Complete 12/25/19 03:47 Total Counted 200 12/25/19 03:47 Seg Neutrophils % 65.0 % (40.0-70.0) 04/16/20 09:02 Seg Neuts % (Manual) 97.5 % (40.0-70.0) H 12/25/19 03:47 Band Neutrophils % 0 % 12/25/19 03:47 Lymphocytes % (Manual) 1.0 % (13.4-35.0) L 12/25/19 03:47 Reactive Lymphs % (Man) 0 % 12/25/19 03:47 Monocytes % (Manual) 1.5 % (0.0-7.3) 12/25/19 03:47 Eosinophils % (Manual) 0 % (0.0-4.3) 12/25/19 03:47 Basophils % (Manual) 0 % (0.0-1.8) 12/25/19 03:47 Metamyelocytes % 0 % 12/25/19 03:47 Myelocytes % 0 % 12/25/19 03:47 Promyelocytes % 0 % 12/25/19 03:47 Blast Cells % 0 % 12/25/19 03:47 Nucleated RBC % Not Reportable 12/25/19 03:47 Seg Neutrophils # 4.4 K/mm3 (1.8-7.7) 04/16/20 09:02 Seg Neutrophils # Man 35.3 K/mm3 (1.8-7.7) H 12/25/19 03:47 Band Neutrophils # 0.0 K/mm3 12/25/19 03:47 Lymphocytes # (Manual) 0.4 K/mm3 (1.2-5.4) L 12/25/19 03:47 Abs React Lymphs (Man) 0.0 K/mm3 12/25/19 03:47 Monocytes # (Manual) 0.5 K/mm3 (0.0-0.8) 12/25/19 03:47 Eosinophils # (Manual) 0.0 K/mm3 (0.0-0.4) 12/25/19 03:47 Basophils # (Manual) 0.0 K/mm3 (0.0-0.1) 12/25/19 03:47 Metamyelocytes # 0.0 K/mm3 12/25/19 03:47 Myelocytes # 0.0 K/mm3 12/25/19 03:47 Promyelocytes # 0.0 K/mm3 12/25/19 03:47 Blast Cells # 0.0 K/mm3 12/25/19 03:47 Pathologist Review 12/13/19 07:48 WBC Morphology Not Reportable 12/25/19 03:47 Hypersegmented Neuts Not Reportable 12/25/19 03:47 Hyposegmented Neuts Not Reportable 12/25/19 03:47 Hypogranular Neuts Not Reportable 12/25/19 03:47 Smudge Cells Not Reportable 12/25/19 03:47 Toxic Granulation Not Reportable 12/25/19 03:47 Toxic Vacuolation Not Reportable 12/25/19 03:47 Dohle Bodies Not Reportable 12/25/19 03:47 Pelger-Huet Anomaly Not Reportable 12/25/19 03:47 Dominique Rods Not Reportable 12/25/19 03:47 Platelet Estimate Consistent w auto 12/25/19 03:47 Clumped Platelets Not Reportable 12/25/19 03:47 Plt Clumps, EDTA Not Reportable 12/25/19 03:47 Large Platelets Not Reportable 12/25/19 03:47 Giant Platelets Not Reportable 12/25/19 03:47 Platelet Satelliting Not Reportable 12/25/19 03:47 Plt Morphology Comment Not Reportable 12/25/19 03:47 RBC Morphology Not Reportable 12/25/19 03:47 Dimorphic RBCs Not Reportable 12/25/19 03:47 Polychromasia Not Reportable 12/25/19 03:47 Hypochromasia Not Reportable 12/25/19 03:47 Poikilocytosis Not Reportable 12/25/19 03:47 Anisocytosis 1+ 12/25/19 03:47 Microcytosis Not Reportable 12/25/19 03:47 Macrocytosis Not Reportable 12/25/19 03:47 Spherocytes Not Reportable 12/25/19 03:47 Pappenheimer Bodies Not Reportable 12/25/19 03:47 Sickle Cells Not Reportable 12/25/19 03:47 Target Cells Not Reportable 12/25/19 03:47 Tear Drop Cells Not Reportable 12/25/19 03:47 Ovalocytes Not Reportable 12/25/19 03:47 Helmet Cells Not Reportable 12/25/19 03:47 Fri[place] Bodies Not Reportable 12/25/19 03:47 [place] Rings Not Reportable 12/25/19 03:47 Griffin Cells Not Reportable 12/25/19 03:47 Bite Cells Not Reportable 12/25/19 03:47 Crenated Cell Not Reportable 12/25/19 03:47 Elliptocytes Not Reportable 12/25/19 03:47 Acanthocytes (Spur) Not Reportable 12/25/19 03:47 Rouleaux Not Reportable 12/25/19 03:47 Hemoglobin C Crystals Not Reportable 12/25/19 03:47 Schistocytes Not Reportable 12/25/19 03:47 Malaria parasites Not Reportable 12/25/19 03:47 Gregg Bodies Not Reportable 12/25/19 03:47 Hem Pathologist Commnt No 12/25/19 03:47 PT 17.0 Sec. (12.2-14.9) H 11/23/19 03:47 INR 1.36 (0.87-1.13) H 11/23/19 03:47 APTT 128.2 Sec. (24.2-36.6) H* 11/23/19 03:47 Heparin Anti-Xa Level 0.31 U.I./ml (0.3-0.7) 11/23/19 09:03 ABG pH 7.433 pH Units (7.350-7.450) 03/08/20 13:25 ABG pCO2 40.2 mm Hg 03/08/20 13:25 ABG pO2 71.1 mm Hg (80.0-90.0) L 03/08/20 13:25 ABG HCO3 26.2 mmol/L (20.0-26.0) H 03/08/20 13:25 ABG O2 Saturation 97.0 % (95.0-99.0) 03/08/20 13:25 ABG O2 Content 11.0 (0.0-44) 03/08/20 13:25 ABG Base Excess 1.8 mmol/L (-2.0-3.0) 03/08/20 13:25 ABG Hemoglobin 8.2 gm/dl (12.0-16.0) L 03/08/20 13:25 ABG Carboxyhemoglobin 1.7 % (0.0-5.0) 03/08/20 13:25 ABG Methemoglobin 0.5 % (0.0-1.5) 03/08/20 13:25 Oxyhemoglobin 94.8 % (95.0-99.0) L 03/08/20 13:25 FiO2 21 % 03/08/20 13:25 Sodium 144 mmol/L (137-145) 04/16/20 05:00 Potassium 3.2 mmol/L (3.6-5.0) L 04/16/20 05:00 Chloride 107.4 mmol/L (98-107) H 04/16/20 05:00 Carbon Dioxide 23 mmol/L (22-30) 04/16/20 05:00 Anion Gap 17 mmol/L 04/16/20 05:00 BUN 16 mg/dL (7-17) 04/16/20 05:00 Creatinine 0.4 mg/dL (0.7-1.2) L 04/16/20 05:00 Estimated GFR > 60 ml/min 04/16/20 05:00 BUN/Creatinine Ratio 40 % 04/16/20 05:00 Glucose 73 mg/dL (65-100) 04/16/20 05:00 POC Glucose 172 (70-105) H 04/24/20 18:35 Lactic Acid 1.80 mmol/L (0.7-2.0) 11/25/19 05:05 Calcium 10.0 mg/dL (8.4-10.2) 04/16/20 05:00 Ionized Calcium 4.5 mg/dL (4.8-5.6) L 11/23/19 06:32 Phosphorus 4.20 mg/dL (2.5-4.5) D 11/28/19 08:59 Magnesium 1.90 mg/dL (1.7-2.3) 02/28/20 03:40 Total Bilirubin 0.40 mg/dL (0.1-1.2) 12/13/19 07:48 AST 27 units/L (5-40) 12/13/19 07:48 ALT 26 units/L (7-56) 12/13/19 07:48 Alkaline Phosphatase 316 units/L (35-129) H 12/13/19 07:48 Ammonia 42.0 umol/L (25-60) 11/29/19 13:41 Total Creatine Kinase 139 units/L (30-135) H 11/22/19 23:27 CK-MB (CK-2) 8.3 ng/mL (0.0-4.0) H 11/22/19 23:27 CK-MB (CK-2) Rel Index 5.9 (0-4) H 11/22/19 23:27 Troponin T < 0.010 ng/mL (0.00-0.029) 11/22/19 23:27 Total Protein 6.8 g/dL (6.3-8.2) 12/13/19 07:48 Albumin 2.4 g/dL (3.9-5) L 12/13/19 07:48 Albumin/Globulin Ratio 0.5 % 12/13/19 07:48 Lipase 18 units/L (13-60) 11/23/19 00:34 Procalcitonin 1.09 ng/mL (<0.15) 11/23/19 04:53 TSH 1.010 mlU/mL (0.270-4.200) 02/12/20 07:36 Free T4 1.08 ng/dL (0.76-1.46) 02/12/20 07:36 Urine Color Yellow (Yellow) 12/16/19 Unknown Urine Turbidity Slightly-cloudy (Clear) 12/16/19 Unknown Urine pH 5.0 (5.0-7.0) 12/16/19 Unknown Ur Specific [place] 1.018 (1.003-1.030) 12/16/19 Unknown Urine Protein 30 mg/dl mg/dL (Negative) 12/16/19 Unknown Urine Glucose (UA) Neg mg/dL (Negative) 12/16/19 Unknown Urine Ketones Neg mg/dL (Negative) 12/16/19 Unknown Urine Blood Sm (Negative) 12/16/19 Unknown Urine Nitrite Neg (Negative) 12/16/19 Unknown Urine Bilirubin Neg (Negative) 12/16/19 Unknown Urine Urobilinogen < 2.0 mg/dL (<2.0) 12/16/19 Unknown Ur Leukocyte Esterase Neg (Negative) 12/16/19 Unknown Urine WBC (Auto) 6.0 /HPF (0.0-6.0) 12/16/19 Unknown Urine RBC (Auto) 9.0 /HPF (0.0-6.0) 12/16/19 Unknown U Epithel Cells (Auto) < 1.0 /HPF (0-13.0) 12/16/19 Unknown Urine Bacteria (Auto) 2+ /HPF (Negative) 11/22/19 23:17 Hyaline Casts 3 /LPF 12/16/19 Unknown Granular Casts 3 /LPF 12/16/19 Unknown Urine Mucus Few /HPF 12/16/19 Unknown Vancomycin Trough 33.8 ug/mL (5.0-20.0) H 12/21/19 08:56 Random Vancomycin 16.2 ug/mL (0-40.0) 12/24/19 04:31 Salicylates < 0.3 mg/dL (2.8-20.0) L 11/22/19 23:27 Urine Opiates Screen Presumptive negative 11/22/19 23:17 Urine Methadone Screen Presumptive negative 11/22/19 23:17 Acetaminophen < 5.0 ug/mL (10.0-30.0) L 11/22/19 23:27 Ur Barbiturates Screen Presumptive negative 11/22/19 23:17 Ur Phencyclidine Scrn Presumptive negative 11/22/19 23:17 Ur Amphetamines Screen Presumptive negative 11/22/19 23:17 U Benzodiazepines Scrn Presumptive negative 11/22/19 23:17 Urine Cocaine Screen Presumptive negative 11/22/19 23:17 U Marijuana (THC) Screen Presumptive negative 11/22/19 23:17 Drugs of Abuse Note Disclamer 11/22/19 23:17 Plasma/Serum Alcohol 0.08 % (0-0.07) H 11/22/19 23:27 Coronavirus (PCR) Negative (Negative) 02/05/20 07:50 Hepatitis A IgM Ab Non-reactive (NonReactive) 11/23/19 01:19 Hep Bs Antigen Non-reactive (Negative) 11/23/19 01:19 Hep B Core IgM Ab Non-reactive (NonReactive) 11/23/19 01:19 Hepatitis C Antibody Non-reactive (NonReactive) 11/23/19 01:19 Blood Type O POSITIVE 12/21/19 14:54 Antibody Screen Negative 12/21/19 14:54 Crossmatch See Detail 12/21/19 14:54 - Diagnostic Impressions Diagnostic Impressions: Echocardiogram 11/23/19 03:58 Transthoracic Echocardiogram Indication: Cardiac arrest BP: 131/89 HR: 115 Conclusions *The study quality is technically difficult. *Global left ventricular wall motion and contractility are within normal limits. *The estimated ejection fraction is 55-60%. *Abnormal left ventricular diastolic filling is observed, consistent with impaired relaxation. *There is no pericardial effusion. Findings Procedure Info: The study quality is technically difficult. The study was technically limited due to the patient's inability to lay in the left lateral decubitus position. Left Ventricle: The left ventricular chamber size is normal. There is no left ventricular hypertrophy. Global left ventricular wall motion and contractility are within normal limits. Global left ventricular systolic function is normal. The estimated ejection fraction is 55-60%. Abnormal left ventricular diastolic filling is observed, consistent with impaired relaxation. Left Atrium: The left atrial chamber size is normal. Aortic Valve: The aortic valve leaflets are mildly thickened. Mitral Valve: The mitral valve leaflets are mildly thickened. There is no evidence of mitral regurgitation. Tricuspid Valve: The tricuspid valve leaflets are normal. There is trace tricuspid regurgitation. The right ventricular systolic pressure is calculated at 33 mmHg. Pulmonic Valve: The pulmonic valve appears normal. Pericardium: The pericardium appears normal. There is no pericardial effusion. Aorta: The aorta appears normal. Venous: The inferior vena cava appears normal in size. Measurements Chambers 2D Name Value Normal Range IVSd (2D) 0.94 cm (0.6 - 1.1) LVPWd (2D) 0.81 cm (0.6 - 1.1) LVIDd (2D) 3.6 cm (3.7 - 5.6) LVIDs (2D) 2.27 cm (2 - 3.8) LV FS (2D) 36.93 % - EF Teichholz (2D) 67.76 % - Ao root diameter (2D) 3.03 cm (2 - 3.7) Volumes/Mass Name Value Normal Range LA ESV SP 4CH (A/L) 16.89 ml - LA ESV SP 4CH (MOD) 15.52 ml - Diastolic/Systolic Function Name Value Normal Range MV E-wave Vmax 0.55 m/sec - MV deceleration time 200.89 msec - MV A-wave Vmax 0.68 m/sec - MV E:A ratio 0.82 ratio - Aortic Valve Name Value Normal Range AV Vmax 1.1 m/sec - AV VTI 15.9 cm - AV peak gradient 4.86 mmHg - AV mean gradient 2.59 mmHg - LVOT diameter 2 cm - LVOT Vmax 1.03 m/sec - LVOT VTI 15.87 cm - LVOT peak gradient 4.24 mmHg - LVOT mean gradient 2.41 mmHg - SV LVOT 49.77 ml - JOSÉ MIGUEL (continuity Vmax) 2.93 cm2 - JOSÉ MIGUEL (continuity VTI) 3.13 cm2 - Tricuspid Valve Name Value Normal Range TR Vmax 2.74 m/sec - TR peak gradient 303 mmHg - RAP 3 mmHg - RVSP 33 mmHg - IVC diameter 1.77 cm (1.2 - 2.3) Pulmonic Valve/Qp:Qs Name Value Normal Range PV Vmax 0.77 m/sec - PV peak gradient 2.4 mmHg - PV acceleration time 114.18 msec - Echocardiogram Limited Views 12/17/19 14:53 Transthoracic Echocardiogram Indication: R/O Vegetations BP: 144/83 HR: 133 Conclusions *Global left ventricular systolic function is mildly decreased. *The estimated ejection fraction is 45-50%. *A trivial pericardial effusion is visualized. Findings Left Ventricle: The left ventricular chamber size is normal. Global left ventricular systolic function is mildly decreased. The estimated ejection fraction is 45-50%. Left Atrium: The left atrial chamber size is normal. Right Ventricle: The right ventricular cavity size is normal. Right Atrium: The right atrial cavity size is normal. Aortic Valve: The aortic valve is not well visualized. There is no evidence of aortic regurgitation. Mitral Valve: The mitral valve leaflets are mildly thickened. There is trace of mitral regurgitation. Tricuspid Valve: The tricuspid valve leaflets are mildly thickened. There is trace tricuspid regurgitation. The right ventricular systolic pressure is calculated at 29 mmHg. Pulmonic Valve: The pulmonic valve is not well visualized. There is no evidence of pulmonic regurgitation. Pericardium: A trivial pericardial effusion is visualized. Aorta: There is no dilatation of the ascending aorta. There is no dilatation of the aortic root. Venous: The inferior vena cava appears normal in size. There is a greater than 50% respiratory change in the inferior vena cava dimension. Measurements Chambers 2D Name Value Normal Range IVSd (2D) 0.83 cm (0.6 - 1.1) LVPWd (2D) 0.98 cm (0.6 - 1.1) LVIDd (2D) 3.71 cm (3.7 - 5.6) LVIDs (2D) 2.93 cm (2 - 3.8) LV FS (2D) 21.12 % - EF Teichholz (2D) 43.71 % - Ao root diameter (2D) 3.02 cm (2 - 3.7) Volumes/Mass Name Value Normal Range LA ESV SP 4CH (A/L) 36.8 ml - LA ESV SP 2CH (A/L) 45.89 ml - LA ESV BP (A/L) 42.35 ml - LA ESV BP (A/L) index 26.63 ml/m2 - LA ESV SP 4CH (MOD) 34.42 ml - LA ESV SP 2CH (MOD) 44.21 ml - LA ESV BP (MOD) 39.82 ml - LA ESV BP (MOD) index 25.05 ml/m2 - Aortic Valve Name Value Normal Range LVOT diameter 1.63 cm - Tricuspid Valve Name Value Normal Range TR Vmax 2.56 m/sec - TR peak gradient 26 mmHg - RAP 3 mmHg - RVSP 29 mmHg - IVC diameter 1.83 cm (1.2 - 2.3) [place]/IV: Voiding Method Incontinent IV Catheter Type [Forearm] Peripheral IV IV Catheter Type [Left Forearm INT / Saline Lock ] IV Catheter Type [Right INT / Saline Lock Antecubital] IV Catheter Type [Right Hand] INT / Saline Lock IV Catheter Type [Right Wrist] Peripheral IV IV Catheter Type [Left Wrist] Peripheral IV IV Catheter Type [Left Peripheral IV Antecubital] IV Catheter Type [Right INT / Saline Lock Forearm] IV Catheter Type [Left Hand] INT / Saline Lock Active Medications - Current Medications Current Medications: Generic Name Dose Route Start Last Admin Trade Name Freq PRN Reason Stop Dose Admin Albuterol 2.5 mg 03/25/20 19:25 04/07/20 08:59 Proventil IH 2.5 mg Q4HRT PRN Administration Shortness Of Breath Lipase/Protease/Amylase 1 each 11/23/19 11:[address] 10,500 Unit FEEDTUBE PRN PRN Use w/ sod bicarb for FT Bisacodyl 10 mg 02/06/20 13:57 Dulcolax [place] QDAY PRN Constipation unrelieved by MOM Enoxaparin Sodium 40 mg 03/07/20 22:00 04/25/20 21:06 Enoxaparin SUB-Q 40 mg QDAY@2200 LUCHO Administration Glycopyrrolate 2 mg 12/31/19 20:00 04/26/20 09:05 Robinul PO 2 mg TID LUCHO Administration Haloperidol Lactate 5 mg 03/05/20 09:22 04/26/20 11:52 Haldol IM 5 mg Q6H PRN Administration Agitation Hydroxyzine Pamoate 25 mg 12/06/19 10:00 04/26/20 09:05 Vistaril PO 25 mg BID LUCHO Administration Lansoprazole 30 mg 11/27/19 10:00 04/26/20 09:05 Prevacid Solutab FEEDTUBE 30 mg QDAY LUCHO Administration Levetiracetam 500 mg 11/29/19 10:00 04/26/20 09:06 Keppra PO 500 mg BID LUCHO Administration Mirtazapine 30 mg 12/06/19 10:00 04/26/20 09:05 Remeron PO 30 mg DAILY LUCHO Administration Nicotine 21 mg 02/16/20 13:00 04/26/20 09:06 Habitrol TD 21 mg QDAY LUCHO Administration Ondansetron HCl 4 mg 12/10/19 07:53 02/25/20 02:51 Zofran IV 4 mg Q4H PRN Administration Nausea And Vomiting Polyethylene Glycol 17 gm 02/06/20 13:57 Miralax 3350 PO QDAY PRN Constipation Quetiapine Fumarate 100 mg 03/06/20 10:00 04/26/20 09:05 Seroquel FEEDTUBE 100 mg BID LUCHO Administration Scopolamine 1 each 02/08/20 15:00 04/26/20 09:06 Transderm-Scop TD 1 each Q3D LUCHO Administration Sertraline HCl 25 mg 01/01/20 10:00 04/26/20 09:05 Zoloft PO 25 mg QDAY ULCHO Administration Simple Syrup 15 ml 11/23/19 11:50 Simple Syrup FEEDTUBE PRN PRN Hypoglycemia BG<70 Simple Syrup 30 ml 11/23/19 11:50 Simple Syrup FEEDTUBE PRN PRN Hypoglycemia Sodium Bicarbonate 325 mg 11/23/19 11:50 Sodium Bicarbonate FEEDTUBE PRN PRN For Clogged Feeding Tube Nutrition/Malnutrition Assess - Dietary Evaluation Nutrition/Malnutrition Findings: Nutrition Notes Start: 11/23/19 11:29 Freq: Status: Active Protocol: Document 04/23/20 14:33 EVELIA (Rec: 04/23/20 14:35 EVELIA [id number] [email or web address]) Nutrition Notes Initial or Follow up Reassessment Other Pertinent Diagnosis s/p Cardiac arrest, acute metabolic encephalopathy Current Diet Mech soft with chopped meats Labs/Tests Reviewed Pertinent Medications Reviewed Height 5 ft 6 in Weight 43.5 kg [place] Body Weight (kg) 59.09 BMI 15.5 Subjective/Other Information Pt has consumed 79% of meals since last assessment. Percent of energy/protein needs met: 100% energy 100% pro Burn Absent Trauma Absent Current % PO Good (75-100%) #2 Nutrition Diagnosis Malnutrition Diagnosis Progress(for reassessment Continues documentation) Is patient on ventilator? No Is Patient Ambulatory and/or Out of Bed No REE-([place]-confined to bed) 1260.864 Kcal/Kg value to use for calculation 35 Approximate Energy Requirements Using 1523 kcal/Kg Calculation Used for Recommendations Kcal/kg Additional Notes Pro needs 1.2-1.5g/k-65g/ day Fluid needs 1ml/kcal Nutrition Intervention Goal #1 PO intake of meals plus ONS to meet 100% energy and pro needs Goal #2 Wt maintenance and/or gain Revisit per MD consult or patient Sign Off request:
[2020-04-26] MEDS: ENOXAPARIN 40 MG/0.4 ML INJ SUB-Q SCH (21:11)
[2020-04-27] MEDS: LANSOPRAZOLE 30 MG SOLUTAB FEEDTUBE SCH (09:46)
[2020-04-27] MEDS: GLYCOPYRROLATE 1 MG TAB PO SCH ×3 (09:46→22:44)
[2020-04-27] MEDS: SERTRALINE 50 MG TAB PO SCH (09:46)
[2020-04-27] MEDS: NICOTINE 21 MG/24 HR PATCH TD SCH (09:46)
[2020-04-27] MEDS: MIRTAZAPINE 30 MG TAB PO SCH (09:46)
[2020-04-27] MEDS: QUEtiapine 100 MG TAB FEEDTUBE SCH ×2 (09:46→22:43)
[2020-04-27] MEDS: hydrOXYzine PAMOATE 25 MG CAP PO SCH ×2 (09:46→22:43)
[2020-04-27] MEDS: levETIRAcetam 500 MG/5 ML ORAL LIQD PO SCH ×2 (09:46→22:43)
[2020-04-27] MEDS: FOLIC ACID 1 MG TAB PO SCH (09:46)
--- NOTE | 2020-04-27 12:53 | Progress Note ---
Assessment and Plan Acute cardiopulmonary arrest with ROSC Acute hypoxemic respiratory failure on MVS Acute metabolic-toxic encephalopathy Metabolic acidosis/alcoholic acidosis/Lactic acidosis Ischemic hepatitis Leucocytosis with lactic acidosis Tobacco use disorder ALcohol use Disorder Hypokalemia High grade fevers - awaiting placement - no new issues; will see prn at this point; continue care as below otherwise - prn supplemental oxygen for target O2 sat's > 90% - prn bronchodilators and pulmonary hygiene per RT - prn Reglan for G.I. motility - Continue VTE and Stress ulcer prophylaxis - Continue enteric nutritional support - Monitor glycemic control, with target blood glucose < 180 mg/dL (Avoid hypoglycemia) - ABG and CXR prn - Continue to avoid nephrotoxins, adjust all medications fro GFR and CrCL - Continue to avoid benzodiazepines , as much as possible, to reduce the possibility of delirium - prn analgesia per pain score - Continue to maintain of sleep-wake cycle, avoid delirium - PT/OT/ROM exercises- awaiting PT/OT evaluation - Continue mobility protocol and skin assessment per protocol for pressure ulcer prevention - Continue to monitor for clinical seizures - Continue Nicotine withdrawal precautions, alcohol withdrawal precautions - continue other care per attending / other consultants - continue discharge planning ..... re-evaluate in prn Subjective Date of service: 04/27/20 Principal diagnosis: Ac cardiopulmonary arrest; Ac hypoxemic resp failure; Acute encephalopathy Interval history: Patient is seen today for: Acute cardiopulmonary arrest with ROSC; Acute h ypoxemic respiratory failure; Acute metabolic-toxic encephalopathy; Ischemic hepatitis; Leucocytosis with lactic acidosis; Tobacco use disorder; Alcohol use Disorder; Hypokalemia; High grade fevers Seen and examined at bedside; 24hour events reviewed; nursing and respiratory care staff consulted; no adverse overnight events reported to me; resting peacefully in bed; still incoherent at times with higher order thoughts and decisions; denies chest pains; not SOB; tolerating regular meals Objective Vital Signs - 12hr 04/27/20 04/27/20 04:55 08:03 Temperature 98.3 F Pulse Rate 86 Pulse Rate [ 89 Apical] Respiratory 18 18 Rate Blood Pressure 142/87 O2 Sat by Pulse 100 99 Oximetry Constitutional: no acute distress, alert Eyes: non-icteric ENT: oropharynx moist Neck: supple, no lymphadenopathy, no JVD Effort: normal Ascultation: Bilateral: diminished breath sounds, rhonchi Percussion: Bilateral: not dull Cardiovascular: regular rate and rhythm (tachycardia), other (S1,S2) Gastrointestinal: normoactive bowel sounds, soft, non-tender, non-distended Integumentary: normal Extremities: no cyanosis, no edema, pulses normal, no ischemia or petechiae Neurologic: normal mental status, non-focal exam (moves all extremities), pupils equal and round, motor strength normal and Psychiatric: mood appropriate, affect normal CBC and BMP: 05/01/20 07:57 05/01/20 07:57 ABG, PT/INR, D-dimer: ABG ABG pH 7.433 pH Units (7.350-7.450) 03/08/20 13:25 ABG pCO2 40.2 mm Hg 03/08/20 13:25 ABG pO2 71.1 mm Hg (80.0-90.0) L 03/08/20 13:25 ABG O2 Saturation 97.0 % (95.0-99.0) 03/08/20 13:25 PT/INR, D-dimer PT 17.0 Sec. (12.2-14.9) H 11/23/19 03:47 INR 1.36 (0.87-1.13) H 11/23/19 03:47 Abnormal lab findings: Abnormal Labs 11/22/19 11/22/19 11/22/19 23:17 23:18 23:27 WBC 21.2 H RBC 3.59 L Hgb 9.8 L Hct MCH 27 L RDW 18.6 H Plt Count 454 H Lymph % (Auto) [place] % (Auto) [place] # Baso # Seg Neutrophils % Seg Neuts % (Manual) 86.0 H Lymphocytes % (Manual) 9.0 L Monocytes % (Manual) Seg Neutrophils # Seg Neutrophils # Man 18.2 H Lymphocytes # (Manual) Monocytes # (Manual) 1.1 H Eosinophils # (Manual) Basophils # (Manual) PT INR APTT ABG pH ABG pO2 ABG HCO3 ABG O2 Saturation ABG Base Excess ABG Hemoglobin Oxyhemoglobin Sodium Potassium Chloride Carbon Dioxide BUN Creatinine Glucose POC Glucose 53 L Lactic Acid Calcium Ionized Calcium Phosphorus Magnesium Total Bilirubin AST ALT Alkaline Phosphatase Ammonia Total Creatine Kinase CK-MB (CK-2) CK-MB (CK-2) Rel Index Total Protein Albumin Urine WBC (Auto) 40.0 H Vancomycin Trough Salicylates Acetaminophen Plasma/Serum Alcohol Crossmatch 11/22/19 11/22/19 11/22/19 23:27 23:27 23:27 WBC RBC Hgb Hct MCH RDW Plt Count Lymph % (Auto) [place] % (Auto) [place] # Baso # Seg Neutrophils % Seg Neuts % (Manual) Lymphocytes % (Manual) Monocytes % (Manual) Seg Neutrophils # Seg Neutrophils # Man Lymphocytes # (Manual) Monocytes # (Manual) Eosinophils # (Manual) Basophils # (Manual) PT INR APTT ABG pH ABG pO2 ABG HCO3 ABG O2 Saturation ABG Base Excess ABG Hemoglobin Oxyhemoglobin Sodium Potassium 2.4 L* Chloride 85.1 L Carbon Dioxide 19 L BUN Creatinine 0.5 L Glucose 261 H POC Glucose Lactic Acid Calcium Ionized Calcium Phosphorus Magnesium Total Bilirubin AST 609 H ALT 152 H Alkaline Phosphatase 160 H Ammonia 117.0 H Total Creatine Kinase 139 H CK-MB (CK-2) 8.3 H CK-MB (CK-2) Rel Index 5.9 H Total Protein Albumin 3.6 L Urine WBC (Auto) Vancomycin Trough Salicylates < 0.3 L Acetaminophen Plasma/Serum Alcohol Crossmatch 11/22/19 11/22/19 11/23/19 23:27 23:27 01:10 WBC RBC Hgb Hct MCH RDW Plt Count Lymph % (Auto) [place] % (Auto) [place] # Baso # Seg Neutrophils % Seg Neuts % (Manual) Lymphocytes % (Manual) Monocytes % (Manual) Seg Neutrophils # Seg Neutrophils # Man Lymphocytes # (Manual) Monocytes # (Manual) Eosinophils # (Manual) Basophils # (Manual) PT INR APTT ABG pH 7.273 L ABG pO2 209.7 H ABG HCO3 ABG O2 Saturation 99.2 H ABG Base Excess -3.9 L ABG Hemoglobin 10.6 L Oxyhemoglobin 93.9 L Sodium Potassium Chloride Carbon Dioxide BUN Creatinine Glucose POC Glucose Lactic Acid Calcium Ionized Calcium Phosphorus Magnesium Total Bilirubin AST ALT Alkaline Phosphatase Ammonia Total Creatine Kinase CK-MB (CK-2) CK-MB (CK-2) Rel Index Total Protein Albumin Urine WBC (Auto) Vancomycin Trough Salicylates Acetaminophen < 5.0 L Plasma/Serum Alcohol 0.08 H Crossmatch 11/23/19 11/23/19 11/23/19 01:19 01:19 03:47 WBC RBC Hgb Hct MCH RDW Plt Count Lymph % (Auto) [place] % (Auto) [place] # Baso # Seg Neutrophils % Seg Neuts % (Manual) Lymphocytes % (Manual) Monocytes % (Manual) Seg Neutrophils # Seg Neutrophils # Man Lymphocytes # (Manual) Monocytes # (Manual) Eosinophils # (Manual) Basophils # (Manual) PT 16.3 H INR 1.29 H APTT ABG pH ABG pO2 ABG HCO3 ABG O2 Saturation ABG Base Excess ABG Hemoglobin Oxyhemoglobin Sodium Potassium Chloride Carbon Dioxide BUN Creatinine Glucose POC Glucose Lactic Acid 2.10 H* 5.00 H* Calcium Ionized Calcium Phosphorus Magnesium Total Bilirubin AST ALT Alkaline Phosphatase Ammonia Total Creatine Kinase CK-MB (CK-2) CK-MB (CK-2) Rel Index Total Protein Albumin Urine WBC (Auto) Vancomycin Trough Salicylates Acetaminophen Plasma/Serum Alcohol Crossmatch 11/23/19 11/23/19 11/23/19 03:47 03:47 04:53 WBC RBC Hgb 9.4 L Hct MCH RDW Plt Count Lymph % (Auto) [place] % (Auto) [place] # Baso # Seg Neutrophils % Seg Neuts % (Manual) Lymphocytes % (Manual) Monocytes % (Manual) Seg Neutrophils # Seg Neutrophils # Man Lymphocytes # (Manual) Monocytes # (Manual) Eosinophils # (Manual) Basophils # (Manual) PT 17.0 H INR 1.36 H APTT 128.2 H* ABG pH ABG pO2 ABG HCO3 ABG O2 Saturation ABG Base Excess ABG Hemoglobin Oxyhemoglobin Sodium Potassium Chloride Carbon Dioxide 18 L BUN Creatinine 0.5 L Glucose 105 H POC Glucose Lactic Acid Calcium 8.3 L Ionized Calcium Phosphorus 2.40 L Magnesium Total Bilirubin 1.30 H AST 761 H ALT 158 H Alkaline Phosphatase 143 H Ammonia Total Creatine Kinase CK-MB (CK-2) CK-MB (CK-2) Rel Index Total Protein Albumin 2.8 L Urine WBC (Auto) Vancomycin Trough Salicylates Acetaminophen Plasma/Serum Alcohol Crossmatch 11/23/19 11/23/19 11/23/19 05:12 06:32 06:32 WBC 16.8 H RBC 3.31 L Hgb 8.9 L Hct 28.7 L MCH 27 L RDW 18.6 H Plt Count Lymph % (Auto) [place] % (Auto) [place] # Baso # Seg Neutrophils % Seg Neuts % (Manual) 94.0 H Lymphocytes % (Manual) 1.0 L Monocytes % (Manual) Seg Neutrophils # Seg Neutrophils # Man 15.8 H Lymphocytes # (Manual) 0.2 L Monocytes # (Manual) Eosinophils # (Manual) Basophils # (Manual) PT INR APTT ABG pH ABG pO2 ABG HCO3 ABG O2 Saturation ABG Base Excess -3.2 L ABG Hemoglobin 9.0 L Oxyhemoglobin 93.6 L Sodium Potassium Chloride Carbon Dioxide BUN Creatinine Glucose POC Glucose Lactic Acid Calcium Ionized Calcium 4.5 L Phosphorus Magnesium Total Bilirubin AST ALT Alkaline Phosphatase Ammonia Total Creatine Kinase CK-MB (CK-2) CK-MB (CK-2) Rel Index Total Protein Albumin Urine WBC (Auto) Vancomycin Trough Salicylates Acetaminophen Plasma/Serum Alcohol Crossmatch 11/23/19 11/24/19 11/24/19 06:32 04:35 04:35 WBC RBC Hgb Hct MCH RDW Plt Count Lymph % (Auto) [place] % (Auto) [place] # Baso # Seg Neutrophils % Seg Neuts % (Manual) Lymphocytes % (Manual) Monocytes % (Manual) Seg Neutrophils # Seg Neutrophils # Man Lymphocytes # (Manual) Monocytes # (Manual) Eosinophils # (Manual) Basophils # (Manual) PT INR APTT ABG pH ABG pO2 ABG HCO3 ABG O2 Saturation ABG Base Excess ABG Hemoglobin Oxyhemoglobin Sodium Potassium Chloride Carbon Dioxide BUN Creatinine Glucose POC Glucose Lactic Acid 3.30 H* Calcium Ionized Calcium Phosphorus Magnesium 1.40 L Total Bilirubin AST ALT Alkaline Phosphatase Ammonia 98.0 H Total Creatine Kinase CK-MB (CK-2) CK-MB (CK-2) Rel Index Total Protein Albumin Urine WBC (Auto) Vancomycin Trough Salicylates Acetaminophen Plasma/Serum Alcohol Crossmatch 11/24/19 11/25/19 11/25/19 05:22 04:34 05:05 WBC 17.3 H RBC 2.88 L Hgb 7.8 L Hct 24.6 L MCH 27 L RDW 18.5 H Plt Count Lymph % (Auto) 7.7 L [place] % (Auto) 9.7 H [place] # 1.7 H Baso # Seg Neutrophils % 82.2 H Seg Neuts % (Manual) Lymphocytes % (Manual) Monocytes % (Manual) Seg Neutrophils # 14.2 H Seg Neutrophils # Man Lymphocytes # (Manual) Monocytes # (Manual) Eosinophils # (Manual) Basophils # (Manual) PT INR APTT ABG pH 7.475 H ABG pO2 ABG HCO3 29.4 H 32.3 H ABG O2 Saturation ABG Base Excess 5.4 H 6.9 H ABG Hemoglobin 9.0 L 10.6 L Oxyhemoglobin 94.3 L Sodium Potassium Chloride Carbon Dioxide BUN Creatinine Glucose POC Glucose Lactic Acid Calcium Ionized Calcium Phosphorus Magnesium Total Bilirubin AST ALT Alkaline Phosphatase Ammonia Total Creatine Kinase CK-MB (CK-2) CK-MB (CK-2) Rel Index Total Protein Albumin Urine WBC (Auto) Vancomycin Trough Salicylates Acetaminophen Plasma/Serum Alcohol Crossmatch 11/25/19 11/25/19 11/26/19 05:05 22:46 03:31 WBC RBC Hgb Hct MCH RDW Plt Count Lymph % (Auto) [place] % (Auto) [place] # Baso # Seg Neutrophils % Seg Neuts % (Manual) Lymphocytes % (Manual) Monocytes % (Manual) Seg Neutrophils # Seg Neutrophils # Man Lymphocytes # (Manual) Monocytes # (Manual) Eosinophils # (Manual) Basophils # (Manual) PT INR APTT ABG pH 7.459 H ABG pO2 ABG HCO3 34.2 H ABG O2 Saturation ABG Base Excess 9.4 H ABG Hemoglobin 7.6 L Oxyhemoglobin 94.8 L Sodium 152 H D 147 H Potassium 2.3 L* D 2.8 L* D Chloride 107.8 H Carbon Dioxide 31 H D 33 H BUN Creatinine 0.6 L 0.6 L Glucose 148 H 177 H POC Glucose Lactic Acid Calcium Ionized Calcium Phosphorus Magnesium Total Bilirubin AST 105 H ALT 71 H Alkaline Phosphatase 155 H Ammonia Total Creatine Kinase CK-MB (CK-2) CK-MB (CK-2) Rel Index Total Protein 5.2 L D Albumin 2.9 L Urine WBC (Auto) Vancomycin Trough Salicylates Acetaminophen Plasma/Serum Alcohol Crossmatch 11/26/19 11/26/19 11/27/19 08:24 08:24 04:20 WBC 12.0 H RBC 3.00 L Hgb 8.0 L 9.3 L Hct 25.9 L 29.7 L MCH 27 L RDW 18.5 H Plt Count Lymph % (Auto) [place] % (Auto) [place] # Baso # Seg Neutrophils % Seg Neuts % (Manual) 89.0 H Lymphocytes % (Manual) 4.0 L Monocytes % (Manual) Seg Neutrophils # Seg Neutrophils # Man 10.7 H Lymphocytes # (Manual) 0.5 L Monocytes # (Manual) Eosinophils # (Manual) Basophils # (Manual) PT INR APTT ABG pH ABG pO2 ABG HCO3 ABG O2 Saturation ABG Base Excess ABG Hemoglobin Oxyhemoglobin Sodium 146 H Potassium 3.4 L D Chloride Carbon Dioxide BUN Creatinine 0.5 L Glucose 165 H POC Glucose Lactic Acid Calcium Ionized Calcium Phosphorus Magnesium Total Bilirubin AST 57 H ALT Alkaline Phosphatase 166 H Ammonia Total Creatine Kinase CK-MB (CK-2) CK-MB (CK-2) Rel Index Total Protein Albumin 2.9 L Urine WBC (Auto) Vancomycin Trough Salicylates Acetaminophen Plasma/Serum Alcohol Crossmatch 11/27/19 11/27/19 11/27/19 04:28 04:28 04:42 WBC RBC Hgb Hct MCH RDW Plt Count Lymph % (Auto) [place] % (Auto) [place] # Baso # Seg Neutrophils % Seg Neuts % (Manual) Lymphocytes % (Manual) Monocytes % (Manual) Seg Neutrophils # Seg Neutrophils # Man Lymphocytes # (Manual) Monocytes # (Manual) Eosinophils # (Manual) Basophils # (Manual) PT INR APTT ABG pH 7.470 H ABG pO2 74.0 L ABG HCO3 33.8 H ABG O2 Saturation ABG Base Excess 9.1 H ABG Hemoglobin 8.7 L Oxyhemoglobin 94.7 L Sodium 146 H Potassium 2.9 L* Chloride Carbon Dioxide BUN 25 H Creatinine Glucose 213 H POC Glucose Lactic Acid Calcium Ionized Calcium Phosphorus 1.00 L Magnesium Total Bilirubin AST ALT Alkaline Phosphatase Ammonia Total Creatine Kinase CK-MB (CK-2) CK-MB (CK-2) Rel Index Total Protein Albumin Urine WBC (Auto) Vancomycin Trough Salicylates Acetaminophen Plasma/Serum Alcohol Crossmatch 11/27/19 11/27/19 11/27/19 05:37 12:20 15:46 WBC RBC Hgb Hct MCH RDW Plt Count Lymph % (Auto) [place] % (Auto) [place] # Baso # Seg Neutrophils % Seg Neuts % (Manual) Lymphocytes % (Manual) Monocytes % (Manual) Seg Neutrophils # Seg Neutrophils # Man Lymphocytes # (Manual) Monocytes # (Manual) Eosinophils # (Manual) Basophils # (Manual) PT INR APTT ABG pH ABG pO2 ABG HCO3 ABG O2 Saturation ABG Base Excess ABG Hemoglobin Oxyhemoglobin Sodium 146 H Potassium 3.5 L D Chloride Carbon Dioxide BUN 24 H Creatinine 0.6 L Glucose 187 H POC Glucose 117 H 220 H Lactic Acid Calcium Ionized Calcium Phosphorus Magnesium Total Bilirubin AST ALT Alkaline Phosphatase Ammonia Total Creatine Kinase CK-MB (CK-2) CK-MB (CK-2) Rel Index Total Protein Albumin Urine WBC (Auto) Vancomycin Trough Salicylates Acetaminophen Plasma/Serum Alcohol Crossmatch 11/27/19 11/28/19 11/28/19 17:28 05:00 05:02 WBC RBC Hgb Hct MCH RDW Plt Count Lymph % (Auto) [place] % (Auto) [place] # Baso # Seg Neutrophils % Seg Neuts % (Manual) Lymphocytes % (Manual) Monocytes % (Manual) Seg Neutrophils # Seg Neutrophils # Man Lymphocytes # (Manual) Monocytes # (Manual) Eosinophils # (Manual) Basophils # (Manual) PT INR APTT ABG pH ABG pO2 72.4 L ABG HCO3 33.6 H ABG O2 Saturation 94.1 L ABG Base Excess 7.3 H ABG Hemoglobin Oxyhemoglobin 91.8 L Sodium 146 H Potassium 3.3 L Chloride Carbon Dioxide BUN 25 H Creatinine 0.6 L Glucose 176 H POC Glucose 198 H Lactic Acid Calcium Ionized Calcium Phosphorus Magnesium Total Bilirubin AST ALT Alkaline Phosphatase Ammonia Total Creatine Kinase CK-MB (CK-2) CK-MB (CK-2) Rel Index Total Protein Albumin Urine WBC (Auto) Vancomycin Trough Salicylates Acetaminophen Plasma/Serum Alcohol Crossmatch 11/28/19 11/28/19 11/29/19 05:02 18:55 10:43 WBC 15.2 H 19.0 H RBC 3.06 L 3.01 L Hgb 8.3 L 8.3 L Hct 27.0 L 26.4 L MCH 27 L RDW 19.0 H 19.7 H Plt Count 479 H 611 H Lymph % (Auto) [place] % (Auto) [place] # Baso # Seg Neutrophils % Seg Neuts % (Manual) 92.0 H Lymphocytes % (Manual) 2.0 L Monocytes % (Manual) Seg Neutrophils # Seg Neutrophils # Man 14.0 H Lymphocytes # (Manual) 0.3 L Monocytes # (Manual) Eosinophils # (Manual) Basophils # (Manual) PT INR APTT ABG pH ABG pO2 ABG HCO3 ABG O2 Saturation ABG Base Excess ABG Hemoglobin Oxyhemoglobin Sodium Potassium Chloride Carbon Dioxide BUN Creatinine Glucose POC Glucose 138 H Lactic Acid Calcium Ionized Calcium Phosphorus Magnesium Total Bilirubin AST ALT Alkaline Phosphatase Ammonia Total Creatine Kinase CK-MB (CK-2) CK-MB (CK-2) Rel Index Total Protein Albumin Urine WBC (Auto) Vancomycin Trough Salicylates Acetaminophen Plasma/Serum Alcohol Crossmatch 11/29/19 11/29/19 11/29/19 10:43 12:27 19:25 WBC RBC Hgb Hct MCH RDW Plt Count Lymph % (Auto) [place] % (Auto) [place] # Baso # Seg Neutrophils % Seg Neuts % (Manual) Lymphocytes % (Manual) Monocytes % (Manual) Seg Neutrophils # Seg Neutrophils # Man Lymphocytes # (Manual) Monocytes # (Manual) Eosinophils # (Manual) Basophils # (Manual) PT INR APTT ABG pH ABG pO2 ABG HCO3 ABG O2 Saturation ABG Base Excess ABG Hemoglobin Oxyhemoglobin Sodium Potassium 2.8 L* Chloride Carbon Dioxide BUN 20 H Creatinine 0.5 L Glucose 121 H POC Glucose 128 H 120 H Lactic Acid Calcium Ionized Calcium Phosphorus Magnesium Total Bilirubin AST ALT Alkaline Phosphatase Ammonia Total Creatine Kinase CK-MB (CK-2) CK-MB (CK-2) Rel Index Total Protein Albumin Urine WBC (Auto) Vancomycin Trough Salicylates Acetaminophen Plasma/Serum Alcohol Crossmatch 11/29/19 11/30/19 11/30/19 23:46 04:10 05:02 WBC RBC Hgb Hct MCH RDW Plt Count Lymph % (Auto) [place] % (Auto) [place] # Baso # Seg Neutrophils % Seg Neuts % (Manual) Lymphocytes % (Manual) Monocytes % (Manual) Seg Neutrophils # Seg Neutrophils # Man Lymphocytes # (Manual) Monocytes # (Manual) Eosinophils # (Manual) Basophils # (Manual) PT INR APTT ABG pH ABG pO2 76.3 L ABG HCO3 32.5 H ABG O2 Saturation ABG Base Excess 6.9 H ABG Hemoglobin 8.0 L Oxyhemoglobin 92.6 L Sodium Potassium Chloride Carbon Dioxide BUN Creatinine Glucose POC Glucose 116 H 128 H Lactic Acid Calcium Ionized Calcium Phosphorus Magnesium Total Bilirubin AST ALT Alkaline Phosphatase Ammonia Total Creatine Kinase CK-MB (CK-2) CK-MB (CK-2) Rel Index Total Protein Albumin Urine WBC (Auto) Vancomycin Trough Salicylates Acetaminophen Plasma/Serum Alcohol Crossmatch 11/30/19 11/30/19 11/30/19 05:25 05:25 12:59 WBC 18.4 H RBC 3.10 L Hgb 8.5 L Hct 27.5 L MCH 27 L RDW 20.9 H Plt Count 691 H Lymph % (Auto) 7.1 L [place] % (Auto) 7.7 H [place] # 1.4 H Baso # Seg Neutrophils % 83.4 H Seg Neuts % (Manual) Lymphocytes % (Manual) Monocytes % (Manual) Seg Neutrophils # 15.4 H Seg Neutrophils # Man Lymphocytes # (Manual) Monocytes # (Manual) Eosinophils # (Manual) Basophils # (Manual) PT INR APTT ABG pH ABG pO2 ABG HCO3 ABG O2 Saturation ABG Base Excess ABG Hemoglobin Oxyhemoglobin Sodium 146 H Potassium Chloride 107.2 H Carbon Dioxide BUN Creatinine 0.5 L Glucose 132 H POC Glucose 124 H Lactic Acid Calcium Ionized Calcium Phosphorus Magnesium Total Bilirubin AST 246 H ALT 274 H Alkaline Phosphatase 203 H Ammonia Total Creatine Kinase CK-MB (CK-2) CK-MB (CK-2) Rel Index Total Protein 5.4 L Albumin 2.9 L Urine WBC (Auto) Vancomycin Trough Salicylates Acetaminophen Plasma/Serum Alcohol Crossmatch 11/30/19 12/01/19 12/01/19 17:53 00:05 05:10 WBC RBC Hgb Hct MCH RDW Plt Count Lymph % (Auto) [place] % (Auto) [place] # Baso # Seg Neutrophils % Seg Neuts % (Manual) Lymphocytes % (Manual) Monocytes % (Manual) Seg Neutrophils # Seg Neutrophils # Man Lymphocytes # (Manual) Monocytes # (Manual) Eosinophils # (Manual) Basophils # (Manual) PT INR APTT ABG pH ABG pO2 ABG HCO3 ABG O2 Saturation ABG Base Excess ABG Hemoglobin Oxyhemoglobin Sodium Potassium Chloride Carbon Dioxide BUN Creatinine Glucose POC Glucose 113 H 143 H 145 H Lactic Acid Calcium Ionized Calcium Phosphorus Magnesium Total Bilirubin AST ALT Alkaline Phosphatase Ammonia Total Creatine Kinase CK-MB (CK-2) CK-MB (CK-2) Rel Index Total Protein Albumin Urine WBC (Auto) Vancomycin Trough Salicylates Acetaminophen Plasma/Serum Alcohol Crossmatch 12/01/19 12/01/19 12/01/19 05:33 08:23 08:23 WBC 22.7 H RBC 2.88 L Hgb 7.9 L Hct 25.2 L MCH 27 L RDW 21.0 H Plt Count 732 H Lymph % (Auto) [place] % (Auto) [place] # Baso # Seg Neutrophils % Seg Neuts % (Manual) 91.0 H Lymphocytes % (Manual) 3.0 L Monocytes % (Manual) Seg Neutrophils # Seg Neutrophils # Man 20.7 H Lymphocytes # (Manual) 0.7 L Monocytes # (Manual) 1.1 H Eosinophils # (Manual) Basophils # (Manual) PT INR APTT ABG pH ABG pO2 68.6 L ABG HCO3 34.1 H ABG O2 Saturation ABG Base Excess 9.0 H ABG Hemoglobin 6.5 L Oxyhemoglobin 94.7 L Sodium Potassium Chloride Carbon Dioxide BUN Creatinine 0.5 L Glucose 125 H POC Glucose Lactic Acid Calcium Ionized Calcium Phosphorus Magnesium Total Bilirubin AST ALT Alkaline Phosphatase Ammonia Total Creatine Kinase CK-MB (CK-2) CK-MB (CK-2) Rel Index Total Protein Albumin Urine WBC (Auto) Vancomycin Trough Salicylates Acetaminophen Plasma/Serum Alcohol Crossmatch 12/01/19 12/01/19 12/01/19 13:21 17:54 20:59 WBC RBC Hgb Hct MCH RDW Plt Count Lymph % (Auto) [place] % (Auto) [place] # Baso # Seg Neutrophils % Seg Neuts % (Manual) Lymphocytes % (Manual) Monocytes % (Manual) Seg Neutrophils # Seg Neutrophils # Man Lymphocytes # (Manual) Monocytes # (Manual) Eosinophils # (Manual) Basophils # (Manual) PT INR APTT ABG pH ABG pO2 78.3 L ABG HCO3 33.8 H ABG O2 Saturation 94.9 L ABG Base Excess 7.9 H ABG Hemoglobin 11.5 L Oxyhemoglobin 92.3 L Sodium Potassium Chloride Carbon Dioxide BUN Creatinine Glucose POC Glucose 111 H 115 H Lactic Acid Calcium Ionized Calcium Phosphorus Magnesium Total Bilirubin AST ALT Alkaline Phosphatase Ammonia Total Creatine Kinase CK-MB (CK-2) CK-MB (CK-2) Rel Index Total Protein Albumin Urine WBC (Auto) Vancomycin Trough Salicylates Acetaminophen Plasma/Serum Alcohol Crossmatch 12/02/19 12/03/19 12/04/19 12:55 20:00 04:26 WBC 15.2 H RBC 2.69 L Hgb 7.4 L Hct 23.6 L MCH 27 L RDW 19.9 H Plt Count 838 H Lymph % (Auto) [place] % (Auto) [place] # Baso # Seg Neutrophils % Seg Neuts % (Manual) Lymphocytes % (Manual) Monocytes % (Manual) Seg Neutrophils # Seg Neutrophils # Man Lymphocytes # (Manual) Monocytes # (Manual) Eosinophils # (Manual) Basophils # (Manual) PT INR APTT ABG pH ABG pO2 68.3 L ABG HCO3 33.5 H ABG O2 Saturation 93.5 L ABG Base Excess 8.4 H ABG Hemoglobin 7.3 L Oxyhemoglobin 90.9 L Sodium Potassium Chloride Carbon Dioxide BUN Creatinine Glucose POC Glucose 107 H Lactic Acid Calcium Ionized Calcium Phosphorus Magnesium Total Bilirubin AST ALT Alkaline Phosphatase Ammonia Total Creatine Kinase CK-MB (CK-2) CK-MB (CK-2) Rel Index Total Protein Albumin Urine WBC (Auto) Vancomycin Trough Salicylates Acetaminophen Plasma/Serum Alcohol Crossmatch 12/04/19 12/04/19 12/04/19 04:26 07:45 12:02 WBC 15.9 H RBC 2.88 L Hgb 7.9 L Hct 25.1 L MCH RDW 20.4 H Plt Count 839 H Lymph % (Auto) 11.3 L [place] % (Auto) 15.2 H [place] # 2.4 H Baso # Seg Neutrophils % 72.4 H Seg Neuts % (Manual) Lymphocytes % (Manual) Monocytes % (Manual) Seg Neutrophils # 11.5 H Seg Neutrophils # Man Lymphocytes # (Manual) Monocytes # (Manual) Eosinophils # (Manual) Basophils # (Manual) PT INR APTT ABG pH ABG pO2 ABG HCO3 ABG O2 Saturation ABG Base Excess ABG Hemoglobin Oxyhemoglobin Sodium Potassium Chloride 96.5 L Carbon Dioxide BUN 21 H Creatinine 0.6 L Glucose 107 H POC Glucose 138 H Lactic Acid Calcium Ionized Calcium Phosphorus Magnesium Total Bilirubin AST ALT Alkaline Phosphatase Ammonia Total Creatine Kinase CK-MB (CK-2) CK-MB (CK-2) Rel Index Total Protein Albumin Urine WBC (Auto) Vancomycin Trough Salicylates Acetaminophen Plasma/Serum Alcohol Crossmatch 12/04/19 12/05/19 12/05/19 18:16 11:55 18:36 WBC RBC Hgb Hct MCH RDW Plt Count Lymph % (Auto) [place] % (Auto) [place] # Baso # Seg Neutrophils % Seg Neuts % (Manual) Lymphocytes % (Manual) Monocytes % (Manual) Seg Neutrophils # Seg Neutrophils # Man Lymphocytes # (Manual) Monocytes # (Manual) Eosinophils # (Manual) Basophils # (Manual) PT INR APTT ABG pH ABG pO2 ABG HCO3 ABG O2 Saturation ABG Base Excess ABG Hemoglobin Oxyhemoglobin Sodium Potassium Chloride Carbon Dioxide BUN Creatinine Glucose POC Glucose 135 H 125 H 135 H Lactic Acid Calcium Ionized Calcium Phosphorus Magnesium Total Bilirubin AST ALT Alkaline Phosphatase Ammonia Total Creatine Kinase CK-MB (CK-2) CK-MB (CK-2) Rel Index Total Protein Albumin Urine WBC (Auto) Vancomycin Trough Salicylates Acetaminophen Plasma/Serum Alcohol Crossmatch 12/05/19 12/06/19 12/06/19 23:30 04:14 05:43 WBC RBC Hgb Hct MCH RDW Plt Count Lymph % (Auto) [place] % (Auto) [place] # Baso # Seg Neutrophils % Seg Neuts % (Manual) Lymphocytes % (Manual) Monocytes % (Manual) Seg Neutrophils # Seg Neutrophils # Man Lymphocytes # (Manual) Monocytes # (Manual) Eosinophils # (Manual) Basophils # (Manual) PT INR APTT ABG pH ABG pO2 ABG HCO3 ABG O2 Saturation ABG Base Excess ABG Hemoglobin Oxyhemoglobin Sodium Potassium 5.6 H Chloride 95.0 L Carbon Dioxide BUN 48 H Creatinine 1.3 H D Glucose POC Glucose 126 H 121 H Lactic Acid Calcium Ionized Calcium Phosphorus Magnesium Total Bilirubin AST 89 H ALT 98 H Alkaline Phosphatase 476 H Ammonia Total Creatine Kinase CK-MB (CK-2) CK-MB (CK-2) Rel Index Total Protein Albumin 2.8 L Urine WBC (Auto) Vancomycin Trough Salicylates Acetaminophen Plasma/Serum Alcohol Crossmatch 12/06/19 12/06/19 12/07/19 10:39 14:34 00:19 WBC 17.3 H RBC 2.60 L Hgb 7.1 L Hct 22.7 L MCH 27 L RDW 20.1 H Plt Count 832 H Lymph % (Auto) [place] % (Auto) [place] # Baso # Seg Neutrophils % Seg Neuts % (Manual) Lymphocytes % (Manual) Monocytes % (Manual) Seg Neutrophils # Seg Neutrophils # Man Lymphocytes # (Manual) Monocytes # (Manual) Eosinophils # (Manual) Basophils # (Manual) PT INR APTT ABG pH ABG pO2 ABG HCO3 ABG O2 Saturation ABG Base Excess ABG Hemoglobin Oxyhemoglobin Sodium Potassium Chloride Carbon Dioxide BUN Creatinine Glucose POC Glucose 128 H 136 H Lactic Acid Calcium Ionized Calcium Phosphorus Magnesium Total Bilirubin AST ALT Alkaline Phosphatase Ammonia Total Creatine Kinase CK-MB (CK-2) CK-MB (CK-2) Rel Index Total Protein Albumin Urine WBC (Auto) Vancomycin Trough Salicylates Acetaminophen Plasma/Serum Alcohol Crossmatch 12/07/19 12/07/19 12/07/19 03:44 03:44 05:53 WBC 16.2 H RBC 2.56 L Hgb 7.1 L Hct 22.3 L MCH RDW 19.4 H Plt Count 782 H Lymph % (Auto) [place] % (Auto) [place] # Baso # Seg Neutrophils % Seg Neuts % (Manual) Lymphocytes % (Manual) Monocytes % (Manual) Seg Neutrophils # Seg Neutrophils # Man Lymphocytes # (Manual) Monocytes # (Manual) Eosinophils # (Manual) Basophils # (Manual) PT INR APTT ABG pH ABG pO2 ABG HCO3 ABG O2 Saturation ABG Base Excess ABG Hemoglobin Oxyhemoglobin Sodium Potassium Chloride 95.6 L Carbon Dioxide BUN 56 H Creatinine 1.4 H Glucose 120 H POC Glucose 128 H Lactic Acid Calcium 10.3 H Ionized Calcium Phosphorus Magnesium Total Bilirubin AST ALT Alkaline Phosphatase Ammonia Total Creatine Kinase CK-MB (CK-2) CK-MB (CK-2) Rel Index Total Protein Albumin Urine WBC (Auto) Vancomycin Trough Salicylates Acetaminophen Plasma/Serum Alcohol Crossmatch 12/07/19 12/07/19 12/08/19 12:54 23:47 00:20 WBC RBC Hgb Hct MCH RDW Plt Count Lymph % (Auto) [place] % (Auto) [place] # Baso # Seg Neutrophils % Seg Neuts % (Manual) Lymphocytes % (Manual) Monocytes % (Manual) Seg Neutrophils # Seg Neutrophils # Man Lymphocytes # (Manual) Monocytes # (Manual) Eosinophils # (Manual) Basophils # (Manual) PT INR APTT ABG pH ABG pO2 ABG HCO3 ABG O2 Saturation ABG Base Excess ABG Hemoglobin Oxyhemoglobin Sodium Potassium Chloride Carbon Dioxide BUN Creatinine Glucose POC Glucose 128 H 130 H 124 H Lactic Acid Calcium Ionized Calcium Phosphorus Magnesium Total Bilirubin AST ALT Alkaline Phosphatase Ammonia Total Creatine Kinase CK-MB (CK-2) CK-MB (CK-2) Rel Index Total Protein Albumin Urine WBC (Auto) Vancomycin Trough Salicylates Acetaminophen Plasma/Serum Alcohol Crossmatch 12/08/19 12/08/19 12/08/19 06:38 12:04 18:26 WBC RBC Hgb Hct MCH RDW Plt Count Lymph % (Auto) [place] % (Auto) [place] # Baso # Seg Neutrophils % Seg Neuts % (Manual) Lymphocytes % (Manual) Monocytes % (Manual) Seg Neutrophils # Seg Neutrophils # Man Lymphocytes # (Manual) Monocytes # (Manual) Eosinophils # (Manual) Basophils # (Manual) PT INR APTT ABG pH ABG pO2 ABG HCO3 ABG O2 Saturation ABG Base Excess ABG Hemoglobin Oxyhemoglobin Sodium Potassium Chloride Carbon Dioxide BUN Creatinine Glucose POC Glucose 137 H 129 H 150 H Lactic Acid Calcium Ionized Calcium Phosphorus Magnesium Total Bilirubin AST ALT Alkaline Phosphatase Ammonia Total Creatine Kinase CK-MB (CK-2) CK-MB (CK-2) Rel Index Total Protein Albumin Urine WBC (Auto) Vancomycin Trough Salicylates Acetaminophen Plasma/Serum Alcohol Crossmatch 12/09/19 12/09/19 12/09/19 00:56 05:34 06:13 WBC RBC Hgb Hct MCH RDW Plt Count Lymph % (Auto) [place] % (Auto) [place] # Baso # Seg Neutrophils % Seg Neuts % (Manual) Lymphocytes % (Manual) Monocytes % (Manual) Seg Neutrophils # Seg Neutrophils # Man Lymphocytes # (Manual) Monocytes # (Manual) Eosinophils # (Manual) Basophils # (Manual) PT INR APTT ABG pH ABG pO2 ABG HCO3 ABG O2 Saturation ABG Base Excess ABG Hemoglobin Oxyhemoglobin Sodium 146 H Potassium Chloride Carbon Dioxide BUN 66 H Creatinine 1.9 H Glucose 116 H POC Glucose 130 H 130 H Lactic Acid Calcium Ionized Calcium Phosphorus Magnesium Total Bilirubin AST ALT Alkaline Phosphatase Ammonia Total Creatine Kinase CK-MB (CK-2) CK-MB (CK-2) Rel Index Total Protein Albumin Urine WBC (Auto) Vancomycin Trough Salicylates Acetaminophen Plasma/Serum Alcohol Crossmatch 12/09/19 12/09/19 12/10/19 11:52 17:50 00:14 WBC RBC Hgb Hct MCH RDW Plt Count Lymph % (Auto) [place] % (Auto) [place] # Baso # Seg Neutrophils % Seg Neuts % (Manual) Lymphocytes % (Manual) Monocytes % (Manual) Seg Neutrophils # Seg Neutrophils # Man Lymphocytes # (Manual) Monocytes # (Manual) Eosinophils # (Manual) Basophils # (Manual) PT INR APTT ABG pH ABG pO2 ABG HCO3 ABG O2 Saturation ABG Base Excess ABG Hemoglobin Oxyhemoglobin Sodium Potassium Chloride Carbon Dioxide BUN Creatinine Glucose POC Glucose 135 H 120 H 116 H Lactic Acid Calcium Ionized Calcium Phosphorus Magnesium Total Bilirubin AST ALT Alkaline Phosphatase Ammonia Total Creatine Kinase CK-MB (CK-2) CK-MB (CK-2) Rel Index Total Protein Albumin Urine WBC (Auto) Vancomycin Trough Salicylates Acetaminophen Plasma/Serum Alcohol Crossmatch 12/10/19 12/10/19 12/10/19 05:38 11:38 17:34 WBC RBC Hgb Hct MCH RDW Plt Count Lymph % (Auto) [place] % (Auto) [place] # Baso # Seg Neutrophils % Seg Neuts % (Manual) Lymphocytes % (Manual) Monocytes % (Manual) Seg Neutrophils # Seg Neutrophils # Man Lymphocytes # (Manual) Monocytes # (Manual) Eosinophils # (Manual) Basophils # (Manual) PT INR APTT ABG pH ABG pO2 ABG HCO3 ABG O2 Saturation ABG Base Excess ABG Hemoglobin Oxyhemoglobin Sodium Potassium Chloride Carbon Dioxide BUN Creatinine Glucose POC Glucose 115 H 112 H 130 H Lactic Acid Calcium Ionized Calcium Phosphorus Magnesium Total Bilirubin AST ALT Alkaline Phosphatase Ammonia Total Creatine Kinase CK-MB (CK-2) CK-MB (CK-2) Rel Index Total Protein Albumin Urine WBC (Auto) Vancomycin Trough Salicylates Acetaminophen Plasma/Serum Alcohol Crossmatch 12/11/19 12/11/19 12/11/19 00:20 05:31 12:22 WBC RBC Hgb Hct MCH RDW Plt Count Lymph % (Auto) [place] % (Auto) [place] # Baso # Seg Neutrophils % Seg Neuts % (Manual) Lymphocytes % (Manual) Monocytes % (Manual) Seg Neutrophils # Seg Neutrophils # Man Lymphocytes # (Manual) Monocytes # (Manual) Eosinophils # (Manual) Basophils # (Manual) PT INR APTT ABG pH ABG pO2 ABG HCO3 ABG O2 Saturation ABG Base Excess ABG Hemoglobin Oxyhemoglobin Sodium Potassium Chloride Carbon Dioxide BUN Creatinine Glucose POC Glucose 124 H 132 H 128 H Lactic Acid Calcium Ionized Calcium Phosphorus Magnesium Total Bilirubin AST ALT Alkaline Phosphatase Ammonia Total Creatine Kinase CK-MB (CK-2) CK-MB (CK-2) Rel Index Total Protein Albumin Urine WBC (Auto) Vancomycin Trough Salicylates Acetaminophen Plasma/Serum Alcohol Crossmatch 12/11/19 12/11/19 12/12/19 18:04 23:42 03:51 WBC RBC Hgb Hct MCH RDW Plt Count Lymph % (Auto) [place] % (Auto) [place] # Baso # Seg Neutrophils % Seg Neuts % (Manual) Lymphocytes % (Manual) Monocytes % (Manual) Seg Neutrophils # Seg Neutrophils # Man Lymphocytes # (Manual) Monocytes # (Manual) Eosinophils # (Manual) Basophils # (Manual) PT INR APTT ABG pH ABG pO2 ABG HCO3 ABG O2 Saturation ABG Base Excess ABG Hemoglobin Oxyhemoglobin Sodium 149 H Potassium Chloride Carbon Dioxide 20 L D BUN 77 H Creatinine 2.8 H Glucose POC Glucose 133 H 154 H Lactic Acid Calcium Ionized Calcium Phosphorus Magnesium Total Bilirubin AST ALT Alkaline Phosphatase Ammonia Total Creatine Kinase CK-MB (CK-2) CK-MB (CK-2) Rel Index Total Protein Albumin Urine WBC (Auto) Vancomycin Trough Salicylates Acetaminophen Plasma/Serum Alcohol Crossmatch 12/12/19 12/12/19 12/12/19 05:18 05:26 10:30 WBC 18.0 H RBC 2.51 L Hgb 6.8 L Hct 22.0 L MCH 27 L RDW 19.9 H Plt Count 582 H Lymph % (Auto) [place] % (Auto) [place] # Baso # Seg Neutrophils % Seg Neuts % (Manual) Lymphocytes % (Manual) Monocytes % (Manual) Seg Neutrophils # Seg Neutrophils # Man Lymphocytes # (Manual) Monocytes # (Manual) Eosinophils # (Manual) Basophils # (Manual) PT INR APTT ABG pH ABG pO2 ABG HCO3 ABG O2 Saturation ABG Base Excess ABG Hemoglobin Oxyhemoglobin Sodium Potassium Chloride Carbon Dioxide BUN Creatinine Glucose POC Glucose 135 H Lactic Acid Calcium Ionized Calcium Phosphorus Magnesium Total Bilirubin AST ALT Alkaline Phosphatase Ammonia Total Creatine Kinase CK-MB (CK-2) CK-MB (CK-2) Rel Index Total Protein Albumin Urine WBC (Auto) Vancomycin Trough Salicylates Acetaminophen Plasma/Serum Alcohol Crossmatch See Detail 12/12/19 12/12/19 12/12/19 11:44 18:10 23:21 WBC RBC Hgb Hct MCH RDW Plt Count Lymph % (Auto) [place] % (Auto) [place] # Baso # Seg Neutrophils % Seg Neuts % (Manual) Lymphocytes % (Manual) Monocytes % (Manual) Seg Neutrophils # Seg Neutrophils # Man Lymphocytes # (Manual) Monocytes # (Manual) Eosinophils # (Manual) Basophils # (Manual) PT INR APTT ABG pH ABG pO2 ABG HCO3 ABG O2 Saturation ABG Base Excess ABG Hemoglobin Oxyhemoglobin Sodium Potassium Chloride Carbon Dioxide BUN Creatinine Glucose POC Glucose 108 H 107 H 126 H Lactic Acid Calcium Ionized Calcium Phosphorus Magnesium Total Bilirubin AST ALT Alkaline Phosphatase Ammonia Total Creatine Kinase CK-MB (CK-2) CK-MB (CK-2) Rel Index Total Protein Albumin Urine WBC (Auto) Vancomycin Trough Salicylates Acetaminophen Plasma/Serum Alcohol Crossmatch 12/13/19 12/13/19 12/13/19 05:41 07:48 07:48 WBC 38.3 H RBC 2.37 L Hgb 6.3 L Hct 20.9 L MCH 27 L RDW 20.2 H Plt Count 546 H Lymph % (Auto) [place] % (Auto) [place] # Baso # Seg Neutrophils % Seg Neuts % (Manual) 93.0 H Lymphocytes % (Manual) 1.0 L Monocytes % (Manual) Seg Neutrophils # Seg Neutrophils # Man 35.6 H Lymphocytes # (Manual) 0.4 L Monocytes # (Manual) Eosinophils # (Manual) Basophils # (Manual) 0.4 H PT INR APTT ABG pH ABG pO2 ABG HCO3 ABG O2 Saturation ABG Base Excess ABG Hemoglobin Oxyhemoglobin Sodium 152 H Potassium 3.1 L D Chloride 111.9 H Carbon Dioxide 21 L BUN 53 H Creatinine 1.9 H Glucose 141 H POC Glucose 128 H Lactic Acid Calcium Ionized Calcium Phosphorus Magnesium Total Bilirubin AST ALT Alkaline Phosphatase 316 H Ammonia Total Creatine Kinase CK-MB (CK-2) CK-MB (CK-2) Rel Index Total Protein Albumin 2.4 L Urine WBC (Auto) Vancomycin Trough Salicylates Acetaminophen Plasma/Serum Alcohol Crossmatch 12/13/19 12/13/19 12/14/19 18:17 23:19 05:36 WBC RBC Hgb Hct MCH RDW Plt Count Lymph % (Auto) [place] % (Auto) [place] # Baso # Seg Neutrophils % Seg Neuts % (Manual) Lymphocytes % (Manual) Monocytes % (Manual) Seg Neutrophils # Seg Neutrophils # Man Lymphocytes # (Manual) Monocytes # (Manual) Eosinophils # (Manual) Basophils # (Manual) PT INR APTT ABG pH ABG pO2 ABG HCO3 ABG O2 Saturation ABG Base Excess ABG Hemoglobin Oxyhemoglobin Sodium Potassium Chloride Carbon Dioxide BUN Creatinine Glucose POC Glucose 141 H 158 H 182 H Lactic Acid Calcium Ionized Calcium Phosphorus Magnesium Total Bilirubin AST ALT Alkaline Phosphatase Ammonia Total Creatine Kinase CK-MB (CK-2) CK-MB (CK-2) Rel Index Total Protein Albumin Urine WBC (Auto) Vancomycin Trough Salicylates Acetaminophen Plasma/Serum Alcohol Crossmatch 12/14/19 12/14/19 12/14/19 08:48 08:48 10:31 WBC 33.3 H RBC 2.70 L Hgb 7.9 L 8.0 L Hct 25.3 L 24.0 L MCH RDW 19.2 H Plt Count 476 H Lymph % (Auto) [place] % (Auto) [place] # Baso # Seg Neutrophils % Seg Neuts % (Manual) Lymphocytes % (Manual) Monocytes % (Manual) Seg Neutrophils # Seg Neutrophils # Man Lymphocytes # (Manual) Monocytes # (Manual) Eosinophils # (Manual) Basophils # (Manual) PT INR APTT ABG pH ABG pO2 ABG HCO3 ABG O2 Saturation ABG Base Excess ABG Hemoglobin Oxyhemoglobin Sodium 153 H Potassium 2.5 L* Chloride 114.9 H Carbon Dioxide 20 L BUN 38 H Creatinine 1.4 H Glucose 177 H POC Glucose Lactic Acid Calcium Ionized Calcium Phosphorus Magnesium Total Bilirubin AST ALT Alkaline Phosphatase Ammonia Total Creatine Kinase CK-MB (CK-2) CK-MB (CK-2) Rel Index Total Protein Albumin Urine WBC (Auto) Vancomycin Trough Salicylates Acetaminophen Plasma/Serum Alcohol Crossmatch 12/14/19 12/14/19 12/14/19 12:57 16:15 17:50 WBC RBC Hgb Hct MCH RDW Plt Count Lymph % (Auto) [place] % (Auto) [place] # Baso # Seg Neutrophils % Seg Neuts % (Manual) Lymphocytes % (Manual) Monocytes % (Manual) Seg Neutrophils # Seg Neutrophils # Man Lymphocytes # (Manual) Monocytes # (Manual) Eosinophils # (Manual) Basophils # (Manual) PT INR APTT ABG pH ABG pO2 73.6 L ABG HCO3 ABG O2 Saturation ABG Base Excess ABG Hemoglobin 7.6 L Oxyhemoglobin 94.0 L Sodium Potassium Chloride Carbon Dioxide BUN Creatinine Glucose POC Glucose 174 H 150 H Lactic Acid Calcium Ionized Calcium Phosphorus Magnesium Total Bilirubin AST ALT Alkaline Phosphatase Ammonia Total Creatine Kinase CK-MB (CK-2) CK-MB (CK-2) Rel Index Total Protein Albumin Urine WBC (Auto) Vancomycin Trough Salicylates Acetaminophen Plasma/Serum Alcohol Crossmatch 12/15/19 12/15/19 12/15/19 00:28 05:27 07:23 WBC 30.0 H RBC 3.11 L Hgb 8.6 L Hct 27.7 L MCH RDW 20.0 H Plt Count 473 H Lymph % (Auto) [place] % (Auto) [place] # Baso # Seg Neutrophils % Seg Neuts % (Manual) Lymphocytes % (Manual) Monocytes % (Manual) Seg Neutrophils # Seg Neutrophils # Man Lymphocytes # (Manual) Monocytes # (Manual) Eosinophils # (Manual) Basophils # (Manual) PT INR APTT ABG pH ABG pO2 ABG HCO3 ABG O2 Saturation ABG Base Excess ABG Hemoglobin Oxyhemoglobin Sodium Potassium Chloride Carbon Dioxide BUN Creatinine Glucose POC Glucose 167 H 148 H Lactic Acid Calcium Ionized Calcium Phosphorus Magnesium Total Bilirubin AST ALT Alkaline Phosphatase Ammonia Total Creatine Kinase CK-MB (CK-2) CK-MB (CK-2) Rel Index Total Protein Albumin Urine WBC (Auto) Vancomycin Trough Salicylates Acetaminophen Plasma/Serum Alcohol Crossmatch 12/15/19 12/15/19 12/15/19 07:23 12:21 17:41 WBC RBC Hgb Hct MCH RDW Plt Count Lymph % (Auto) [place] % (Auto) [place] # Baso # Seg Neutrophils % Seg Neuts % (Manual) Lymphocytes % (Manual) Monocytes % (Manual) Seg Neutrophils # Seg Neutrophils # Man Lymphocytes # (Manual) Monocytes # (Manual) Eosinophils # (Manual) Basophils # (Manual) PT INR APTT ABG pH ABG pO2 ABG HCO3 ABG O2 Saturation ABG Base Excess ABG Hemoglobin Oxyhemoglobin Sodium 147 H Potassium 3.5 L D Chloride 111.2 H Carbon Dioxide 19 L BUN 29 H Creatinine Glucose 126 H POC Glucose 154 H 144 H Lactic Acid Calcium Ionized Calcium Phosphorus Magnesium Total Bilirubin AST ALT Alkaline Phosphatase Ammonia Total Creatine Kinase CK-MB (CK-2) CK-MB (CK-2) Rel Index Total Protein Albumin Urine WBC (Auto) Vancomycin Trough Salicylates Acetaminophen Plasma/Serum Alcohol Crossmatch 12/16/19 12/16/19 12/16/19 00:22 05:30 05:44 WBC 30.8 H RBC 2.58 L Hgb 7.1 L Hct 22.7 L MCH RDW 19.6 H Plt Count 451 H Lymph % (Auto) [place] % (Auto) [place] # Baso # Seg Neutrophils % Seg Neuts % (Manual) Lymphocytes % (Manual) Monocytes % (Manual) Seg Neutrophils # Seg Neutrophils # Man Lymphocytes # (Manual) Monocytes # (Manual) Eosinophils # (Manual) Basophils # (Manual) PT INR APTT ABG pH ABG pO2 ABG HCO3 ABG O2 Saturation ABG Base Excess ABG Hemoglobin Oxyhemoglobin Sodium Potassium Chloride Carbon Dioxide BUN Creatinine Glucose POC Glucose 139 H 126 H Lactic Acid Calcium Ionized Calcium Phosphorus Magnesium Total Bilirubin AST ALT Alkaline Phosphatase Ammonia Total Creatine Kinase CK-MB (CK-2) CK-MB (CK-2) Rel Index Total Protein Albumin Urine WBC (Auto) Vancomycin Trough Salicylates Acetaminophen Plasma/Serum Alcohol Crossmatch 12/16/19 12/16/19 12/16/19 05:44 11:48 17:37 WBC RBC Hgb Hct MCH RDW Plt Count Lymph % (Auto) [place] % (Auto) [place] # Baso # Seg Neutrophils % Seg Neuts % (Manual) Lymphocytes % (Manual) Monocytes % (Manual) Seg Neutrophils # Seg Neutrophils # Man Lymphocytes # (Manual) Monocytes # (Manual) Eosinophils # (Manual) Basophils # (Manual) PT INR APTT ABG pH ABG pO2 ABG HCO3 ABG O2 Saturation ABG Base Excess ABG Hemoglobin Oxyhemoglobin Sodium Potassium 3.4 L Chloride 109.2 H Carbon Dioxide 19 L BUN 27 H Creatinine Glucose 124 H POC Glucose 125 H 148 H Lactic Acid Calcium Ionized Calcium Phosphorus Magnesium Total Bilirubin AST ALT Alkaline Phosphatase Ammonia Total Creatine Kinase CK-MB (CK-2) CK-MB (CK-2) Rel Index Total Protein Albumin Urine WBC (Auto) Vancomycin Trough Salicylates Acetaminophen Plasma/Serum Alcohol Crossmatch 12/16/19 12/17/19 12/17/19 23:43 05:28 12:47 WBC RBC Hgb Hct MCH RDW Plt Count Lymph % (Auto) [place] % (Auto) [place] # Baso # Seg Neutrophils % Seg Neuts % (Manual) Lymphocytes % (Manual) Monocytes % (Manual) Seg Neutrophils # Seg Neutrophils # Man Lymphocytes # (Manual) Monocytes # (Manual) Eosinophils # (Manual) Basophils # (Manual) PT INR APTT ABG pH ABG pO2 ABG HCO3 ABG O2 Saturation ABG Base Excess ABG Hemoglobin Oxyhemoglobin Sodium Potassium Chloride Carbon Dioxide BUN Creatinine Glucose POC Glucose 142 H 140 H 125 H Lactic Acid Calcium Ionized Calcium Phosphorus Magnesium Total Bilirubin AST ALT Alkaline Phosphatase Ammonia Total Creatine Kinase CK-MB (CK-2) CK-MB (CK-2) Rel Index Total Protein Albumin Urine WBC (Auto) Vancomycin Trough Salicylates Acetaminophen Plasma/Serum Alcohol Crossmatch 12/17/19 12/17/19 12/17/19 17:05 18:00 Unknown WBC RBC Hgb Hct MCH RDW Plt Count Lymph % (Auto) [place] % (Auto) [place] # Baso # Seg Neutrophils % Seg Neuts % (Manual) Lymphocytes % (Manual) Monocytes % (Manual) Seg Neutrophils # Seg Neutrophils # Man Lymphocytes # (Manual) Monocytes # (Manual) Eosinophils # (Manual) Basophils # (Manual) PT INR APTT ABG pH ABG pO2 68.1 L ABG HCO3 ABG O2 Saturation 93.7 L ABG Base Excess ABG Hemoglobin 5.0 L Oxyhemoglobin 91.7 L Sodium Potassium Chloride Carbon Dioxide BUN Creatinine Glucose POC Glucose 140 H Lactic Acid Calcium Ionized Calcium Phosphorus Magnesium Total Bilirubin AST ALT Alkaline Phosphatase Ammonia Total Creatine Kinase CK-MB (CK-2) CK-MB (CK-2) Rel Index Total Protein Albumin Urine WBC (Auto) Vancomycin Trough Salicylates Acetaminophen Plasma/Serum Alcohol Crossmatch 12/18/19 12/18/19 12/18/19 00:16 04:53 04:53 WBC 28.6 H RBC 2.27 L Hgb 6.3 L Hct 19.5 L* MCH RDW 20.0 H Plt Count 497 H Lymph % (Auto) [place] % (Auto) [place] # Baso # Seg Neutrophils % Seg Neuts % (Manual) Lymphocytes % (Manual) Monocytes % (Manual) Seg Neutrophils # Seg Neutrophils # Man Lymphocytes # (Manual) Monocytes # (Manual) Eosinophils # (Manual) Basophils # (Manual) PT INR APTT ABG pH ABG pO2 ABG HCO3 ABG O2 Saturation ABG Base Excess ABG Hemoglobin Oxyhemoglobin Sodium Potassium Chloride 107.9 H Carbon Dioxide 20 L BUN 27 H Creatinine 0.6 L Glucose 116 H POC Glucose 123 H Lactic Acid Calcium Ionized Calcium Phosphorus Magnesium Total Bilirubin AST ALT Alkaline Phosphatase Ammonia Total Creatine Kinase CK-MB (CK-2) CK-MB (CK-2) Rel Index Total Protein Albumin Urine WBC (Auto) Vancomycin Trough Salicylates Acetaminophen Plasma/Serum Alcohol Crossmatch 12/18/19 12/18/19 12/18/19 06:38 11:22 12:08 WBC RBC Hgb Hct MCH RDW Plt Count Lymph % (Auto) [place] % (Auto) [place] # Baso # Seg Neutrophils % Seg Neuts % (Manual) Lymphocytes % (Manual) Monocytes % (Manual) Seg Neutrophils # Seg Neutrophils # Man Lymphocytes # (Manual) Monocytes # (Manual) Eosinophils # (Manual) Basophils # (Manual) PT INR APTT ABG pH ABG pO2 ABG HCO3 ABG O2 Saturation ABG Base Excess ABG Hemoglobin Oxyhemoglobin Sodium Potassium Chloride Carbon Dioxide BUN Creatinine Glucose POC Glucose 120 H 127 H Lactic Acid Calcium Ionized Calcium Phosphorus Magnesium Total Bilirubin AST ALT Alkaline Phosphatase Ammonia Total Creatine Kinase CK-MB (CK-2) CK-MB (CK-2) Rel Index Total Protein Albumin Urine WBC (Auto) Vancomycin Trough Salicylates Acetaminophen Plasma/Serum Alcohol Crossmatch See Detail 12/18/19 12/18/19 12/18/19 14:05 17:49 23:53 WBC RBC Hgb Hct MCH RDW Plt Count Lymph % (Auto) [place] % (Auto) [place] # Baso # Seg Neutrophils % Seg Neuts % (Manual) Lymphocytes % (Manual) Monocytes % (Manual) Seg Neutrophils # Seg Neutrophils # Man Lymphocytes # (Manual) Monocytes # (Manual) Eosinophils # (Manual) Basophils # (Manual) PT INR APTT ABG pH 7.267 L ABG pO2 69.8 L ABG HCO3 ABG O2 Saturation 88.4 L ABG Base Excess ABG Hemoglobin 7.1 L Oxyhemoglobin 86.4 L Sodium Potassium Chloride Carbon Dioxide BUN Creatinine Glucose POC Glucose 157 H 128 H Lactic Acid Calcium Ionized Calcium Phosphorus Magnesium Total Bilirubin AST ALT Alkaline Phosphatase Ammonia Total Creatine Kinase CK-MB (CK-2) CK-MB (CK-2) Rel Index Total Protein Albumin Urine WBC (Auto) Vancomycin Trough Salicylates Acetaminophen Plasma/Serum Alcohol Crossmatch 12/19/19 12/19/19 12/19/19 03:37 03:37 05:25 WBC 31.3 H RBC 2.60 L Hgb 7.6 L Hct 23.0 L MCH RDW 19.4 H Plt Count 530 H Lymph % (Auto) [place] % (Auto) [place] # Baso # Seg Neutrophils % Seg Neuts % (Manual) Lymphocytes % (Manual) Monocytes % (Manual) Seg Neutrophils # Seg Neutrophils # Man Lymphocytes # (Manual) Monocytes # (Manual) Eosinophils # (Manual) Basophils # (Manual) PT INR APTT ABG pH ABG pO2 ABG HCO3 ABG O2 Saturation ABG Base Excess ABG Hemoglobin Oxyhemoglobin Sodium Potassium Chloride Carbon Dioxide 18 L BUN 36 H Creatinine Glucose 111 H POC Glucose 123 H Lactic Acid Calcium Ionized Calcium Phosphorus Magnesium Total Bilirubin AST ALT Alkaline Phosphatase Ammonia Total Creatine Kinase CK-MB (CK-2) CK-MB (CK-2) Rel Index Total Protein Albumin Urine WBC (Auto) Vancomycin Trough Salicylates Acetaminophen Plasma/Serum Alcohol Crossmatch 12/19/19 12/19/19 12/20/19 12:59 18:33 00:00 WBC RBC Hgb Hct MCH RDW Plt Count Lymph % (Auto) [place] % (Auto) [place] # Baso # Seg Neutrophils % Seg Neuts % (Manual) Lymphocytes % (Manual) Monocytes % (Manual) Seg Neutrophils # Seg Neutrophils # Man Lymphocytes # (Manual) Monocytes # (Manual) Eosinophils # (Manual) Basophils # (Manual) PT INR APTT ABG pH ABG pO2 ABG HCO3 ABG O2 Saturation ABG Base Excess ABG Hemoglobin Oxyhemoglobin Sodium Potassium Chloride Carbon Dioxide BUN Creatinine Glucose POC Glucose 130 H 118 H 135 H Lactic Acid Calcium Ionized Calcium Phosphorus Magnesium Total Bilirubin AST ALT Alkaline Phosphatase Ammonia Total Creatine Kinase CK-MB (CK-2) CK-MB (CK-2) Rel Index Total Protein Albumin Urine WBC (Auto) Vancomycin Trough Salicylates Acetaminophen Plasma/Serum Alcohol Crossmatch 12/20/19 12/20/19 12/20/19 05:46 12:31 18:07 WBC RBC Hgb Hct MCH RDW Plt Count Lymph % (Auto) [place] % (Auto) [place] # Baso # Seg Neutrophils % Seg Neuts % (Manual) Lymphocytes % (Manual) Monocytes % (Manual) Seg Neutrophils # Seg Neutrophils # Man Lymphocytes # (Manual) Monocytes # (Manual) Eosinophils # (Manual) Basophils # (Manual) PT INR APTT ABG pH ABG pO2 ABG HCO3 ABG O2 Saturation ABG Base Excess ABG Hemoglobin Oxyhemoglobin Sodium Potassium Chloride Carbon Dioxide BUN Creatinine Glucose POC Glucose 131 H 128 H 134 H Lactic Acid Calcium Ionized Calcium Phosphorus Magnesium Total Bilirubin AST ALT Alkaline Phosphatase Ammonia Total Creatine Kinase CK-MB (CK-2) CK-MB (CK-2) Rel Index Total Protein Albumin Urine WBC (Auto) Vancomycin Trough Salicylates Acetaminophen Plasma/Serum Alcohol Crossmatch 12/21/19 12/21/19 12/21/19 03:28 03:28 07:21 WBC 29.4 H RBC 2.30 L Hgb 6.8 L Hct 20.2 L MCH RDW 20.2 H Plt Count 746 H Lymph % (Auto) [place] % (Auto) [place] # Baso # Seg Neutrophils % Seg Neuts % (Manual) 85.0 H Lymphocytes % (Manual) 8.0 L Monocytes % (Manual) Seg Neutrophils # Seg Neutrophils # Man 25.0 H Lymphocytes # (Manual) Monocytes # (Manual) 1.5 H Eosinophils # (Manual) 0.6 H Basophils # (Manual) PT INR APTT ABG pH ABG pO2 ABG HCO3 ABG O2 Saturation ABG Base Excess ABG Hemoglobin Oxyhemoglobin Sodium Potassium Chloride Carbon Dioxide 17 L BUN 57 H Creatinine 1.4 H D Glucose POC Glucose 124 H Lactic Acid Calcium Ionized Calcium Phosphorus Magnesium Total Bilirubin AST ALT Alkaline Phosphatase Ammonia Total Creatine Kinase CK-MB (CK-2) CK-MB (CK-2) Rel Index Total Protein Albumin Urine WBC (Auto) Vancomycin Trough Salicylates Acetaminophen Plasma/Serum Alcohol Crossmatch 12/21/19 12/21/19 12/21/19 08:56 12:06 14:53 WBC RBC Hgb 7.2 L Hct 22.9 L MCH RDW Plt Count Lymph % (Auto) [place] % (Auto) [place] # Baso # Seg Neutrophils % Seg Neuts % (Manual) Lymphocytes % (Manual) Monocytes % (Manual) Seg Neutrophils # Seg Neutrophils # Man Lymphocytes # (Manual) Monocytes # (Manual) Eosinophils # (Manual) Basophils # (Manual) PT INR APTT ABG pH ABG pO2 ABG HCO3 ABG O2 Saturation ABG Base Excess ABG Hemoglobin Oxyhemoglobin Sodium Potassium Chloride Carbon Dioxide BUN Creatinine Glucose POC Glucose 116 H Lactic Acid Calcium Ionized Calcium Phosphorus Magnesium Total Bilirubin AST ALT Alkaline Phosphatase Ammonia Total Creatine Kinase CK-MB (CK-2) CK-MB (CK-2) Rel Index Total Protein Albumin Urine WBC (Auto) Vancomycin Trough 33.8 H Salicylates Acetaminophen Plasma/Serum Alcohol Crossmatch 12/21/19 12/21/19 12/21/19 14:54 17:27 23:49 WBC RBC Hgb Hct MCH RDW Plt Count Lymph % (Auto) [place] % (Auto) [place] # Baso # Seg Neutrophils % Seg Neuts % (Manual) Lymphocytes % (Manual) Monocytes % (Manual) Seg Neutrophils # Seg Neutrophils # Man Lymphocytes # (Manual) Monocytes # (Manual) Eosinophils # (Manual) Basophils # (Manual) PT INR APTT ABG pH ABG pO2 ABG HCO3 ABG O2 Saturation ABG Base Excess ABG Hemoglobin Oxyhemoglobin Sodium Potassium Chloride Carbon Dioxide BUN Creatinine Glucose POC Glucose 145 H 127 H Lactic Acid Calcium Ionized Calcium Phosphorus Magnesium Total Bilirubin AST ALT Alkaline Phosphatase Ammonia Total Creatine Kinase CK-MB (CK-2) CK-MB (CK-2) Rel Index Total Protein Albumin Urine WBC (Auto) Vancomycin Trough Salicylates Acetaminophen Plasma/Serum Alcohol Crossmatch See Detail 12/22/19 12/22/19 12/22/19 04:43 05:56 08:40 WBC RBC Hgb Hct MCH RDW Plt Count Lymph % (Auto) [place] % (Auto) [place] # Baso # Seg Neutrophils % Seg Neuts % (Manual) Lymphocytes % (Manual) Monocytes % (Manual) Seg Neutrophils # Seg Neutrophils # Man Lymphocytes # (Manual) Monocytes # (Manual) Eosinophils # (Manual) Basophils # (Manual) PT INR APTT ABG pH ABG pO2 75.6 L ABG HCO3 ABG O2 Saturation ABG Base Excess -2.6 L ABG Hemoglobin 6.8 L Oxyhemoglobin 94.6 L Sodium Potassium Chloride Carbon Dioxide 17 L BUN 60 H Creatinine 1.4 H Glucose 126 H POC Glucose 153 H Lactic Acid Calcium Ionized Calcium Phosphorus Magnesium Total Bilirubin AST ALT Alkaline Phosphatase Ammonia Total Creatine Kinase CK-MB (CK-2) CK-MB (CK-2) Rel Index Total Protein Albumin Urine WBC (Auto) Vancomycin Trough Salicylates Acetaminophen Plasma/Serum Alcohol Crossmatch 12/22/19 12/22/19 12/23/19 12:07 17:49 04:30 WBC 22.4 H RBC 2.68 L Hgb 7.6 L Hct 22.9 L MCH RDW 19.9 H Plt Count 998 H Lymph % (Auto) [place] % (Auto) [place] # Baso # Seg Neutrophils % Seg Neuts % (Manual) 88.0 H Lymphocytes % (Manual) 2.0 L Monocytes % (Manual) 9.0 H Seg Neutrophils # Seg Neutrophils # Man 19.7 H Lymphocytes # (Manual) 0.4 L Monocytes # (Manual) 2.0 H Eosinophils # (Manual) Basophils # (Manual) PT INR APTT ABG pH ABG pO2 ABG HCO3 ABG O2 Saturation ABG Base Excess ABG Hemoglobin Oxyhemoglobin Sodium Potassium Chloride Carbon Dioxide BUN Creatinine Glucose POC Glucose 140 H 116 H Lactic Acid Calcium Ionized Calcium Phosphorus Magnesium Total Bilirubin AST ALT Alkaline Phosphatase Ammonia Total Creatine Kinase CK-MB (CK-2) CK-MB (CK-2) Rel Index Total Protein Albumin Urine WBC (Auto) Vancomycin Trough Salicylates Acetaminophen Plasma/Serum Alcohol Crossmatch 12/23/19 12/23/19 12/23/19 04:30 12:00 18:06 WBC RBC Hgb Hct MCH RDW Plt Count Lymph % (Auto) [place] % (Auto) [place] # Baso # Seg Neutrophils % Seg Neuts % (Manual) Lymphocytes % (Manual) Monocytes % (Manual) Seg Neutrophils # Seg Neutrophils # Man Lymphocytes # (Manual) Monocytes # (Manual) Eosinophils # (Manual) Basophils # (Manual) PT INR APTT ABG pH ABG pO2 ABG HCO3 ABG O2 Saturation ABG Base Excess ABG Hemoglobin Oxyhemoglobin Sodium Potassium 5.2 H Chloride Carbon Dioxide 21 L BUN 69 H Creatinine 1.5 H Glucose 117 H POC Glucose 128 H 138 H Lactic Acid Calcium Ionized Calcium Phosphorus Magnesium Total Bilirubin AST ALT Alkaline Phosphatase Ammonia Total Creatine Kinase CK-MB (CK-2) CK-MB (CK-2) Rel Index Total Protein Albumin Urine WBC (Auto) Vancomycin Trough Salicylates Acetaminophen Plasma/Serum Alcohol Crossmatch 12/23/19 12/24/19 12/24/19 23:46 04:31 05:08 WBC RBC Hgb Hct MCH RDW Plt Count Lymph % (Auto) [place] % (Auto) [place] # Baso # Seg Neutrophils % Seg Neuts % (Manual) Lymphocytes % (Manual) Monocytes % (Manual) Seg Neutrophils # Seg Neutrophils # Man Lymphocytes # (Manual) Monocytes # (Manual) Eosinophils # (Manual) Basophils # (Manual) PT INR APTT ABG pH ABG pO2 ABG HCO3 ABG O2 Saturation ABG Base Excess ABG Hemoglobin Oxyhemoglobin Sodium Potassium 5.3 H Chloride 107.6 H Carbon Dioxide 20 L BUN 72 H Creatinine 1.6 H Glucose 120 H POC Glucose 120 H 140 H Lactic Acid Calcium Ionized Calcium Phosphorus Magnesium Total Bilirubin AST ALT Alkaline Phosphatase Ammonia Total Creatine Kinase CK-MB (CK-2) CK-MB (CK-2) Rel Index Total Protein Albumin Urine WBC (Auto) Vancomycin Trough Salicylates Acetaminophen Plasma/Serum Alcohol Crossmatch 12/24/19 12/24/19 12/25/19 11:58 17:49 03:47 WBC 36.2 H RBC 2.92 L Hgb 8.4 L Hct 26.1 L MCH RDW 20.2 H Plt Count 942 H Lymph % (Auto) [place] % (Auto) [place] # Baso # Seg Neutrophils % Seg Neuts % (Manual) 97.5 H Lymphocytes % (Manual) 1.0 L Monocytes % (Manual) Seg Neutrophils # Seg Neutrophils # Man 35.3 H Lymphocytes # (Manual) 0.4 L Monocytes # (Manual) Eosinophils # (Manual) Basophils # (Manual) PT INR APTT ABG pH ABG pO2 ABG HCO3 ABG O2 Saturation ABG Base Excess ABG Hemoglobin Oxyhemoglobin Sodium Potassium Chloride Carbon Dioxide BUN Creatinine Glucose POC Glucose 146 H 131 H Lactic Acid Calcium Ionized Calcium Phosphorus Magnesium Total Bilirubin AST ALT Alkaline Phosphatase Ammonia Total Creatine Kinase CK-MB (CK-2) CK-MB (CK-2) Rel Index Total Protein Albumin Urine WBC (Auto) Vancomycin Trough Salicylates Acetaminophen Plasma/Serum Alcohol Crossmatch 12/25/19 12/25/19 12/25/19 03:47 05:30 12:23 WBC RBC Hgb Hct MCH RDW Plt Count Lymph % (Auto) [place] % (Auto) [place] # Baso # Seg Neutrophils % Seg Neuts % (Manual) Lymphocytes % (Manual) Monocytes % (Manual) Seg Neutrophils # Seg Neutrophils # Man Lymphocytes # (Manual) Monocytes # (Manual) Eosinophils # (Manual) Basophils # (Manual) PT INR APTT ABG pH ABG pO2 ABG HCO3 ABG O2 Saturation ABG Base Excess ABG Hemoglobin Oxyhemoglobin Sodium Potassium Chloride Carbon Dioxide 15 L BUN 70 H Creatinine 1.7 H Glucose 153 H POC Glucose 169 H 135 H Lactic Acid Calcium Ionized Calcium Phosphorus Magnesium Total Bilirubin AST ALT Alkaline Phosphatase Ammonia Total Creatine Kinase CK-MB (CK-2) CK-MB (CK-2) Rel Index Total Protein Albumin Urine WBC (Auto) Vancomycin Trough Salicylates Acetaminophen Plasma/Serum Alcohol Crossmatch 12/25/19 12/25/19 12/26/19 17:37 23:29 09:47 WBC 22.1 H RBC 2.83 L Hgb 7.9 L Hct 25.5 L MCH RDW 20.0 H Plt Count 894 H Lymph % (Auto) [place] % (Auto) [place] # Baso # Seg Neutrophils % Seg Neuts % (Manual) Lymphocytes % (Manual) Monocytes % (Manual) Seg Neutrophils # Seg Neutrophils # Man Lymphocytes # (Manual) Monocytes # (Manual) Eosinophils # (Manual) Basophils # (Manual) PT INR APTT ABG pH ABG pO2 ABG HCO3 ABG O2 Saturation ABG Base Excess ABG Hemoglobin Oxyhemoglobin Sodium Potassium Chloride Carbon Dioxide BUN Creatinine Glucose POC Glucose 120 H 140 H Lactic Acid Calcium Ionized Calcium Phosphorus Magnesium Total Bilirubin AST ALT Alkaline Phosphatase Ammonia Total Creatine Kinase CK-MB (CK-2) CK-MB (CK-2) Rel Index Total Protein Albumin Urine WBC (Auto) Vancomycin Trough Salicylates Acetaminophen Plasma/Serum Alcohol Crossmatch 12/26/19 12/26/19 12/26/19 09:47 11:46 17:52 WBC RBC Hgb Hct MCH RDW Plt Count Lymph % (Auto) [place] % (Auto) [place] # Baso # Seg Neutrophils % Seg Neuts % (Manual) Lymphocytes % (Manual) Monocytes % (Manual) Seg Neutrophils # Seg Neutrophils # Man Lymphocytes # (Manual) Monocytes # (Manual) Eosinophils # (Manual) Basophils # (Manual) PT INR APTT ABG pH ABG pO2 ABG HCO3 ABG O2 Saturation ABG Base Excess ABG Hemoglobin Oxyhemoglobin Sodium Potassium Chloride Carbon Dioxide 18 L BUN 65 H Creatinine 1.4 H Glucose 132 H POC Glucose 110 H 145 H Lactic Acid Calcium Ionized Calcium Phosphorus Magnesium Total Bilirubin AST ALT Alkaline Phosphatase Ammonia Total Creatine Kinase CK-MB (CK-2) CK-MB (CK-2) Rel Index Total Protein Albumin Urine WBC (Auto) Vancomycin Trough Salicylates Acetaminophen Plasma/Serum Alcohol Crossmatch 12/27/19 12/27/19 12/27/19 00:01 03:42 03:42 WBC 18.0 H RBC 2.86 L Hgb 8.0 L Hct 25.2 L MCH RDW 19.2 H Plt Count 873 H Lymph % (Auto) 8.4 L [place] % (Auto) 7.5 H [place] # 1.4 H Baso # 0.2 H Seg Neutrophils % 82.2 H Seg Neuts % (Manual) Lymphocytes % (Manual) Monocytes % (Manual) Seg Neutrophils # 14.8 H Seg Neutrophils # Man Lymphocytes # (Manual) Monocytes # (Manual) Eosinophils # (Manual) Basophils # (Manual) PT INR APTT ABG pH ABG pO2 ABG HCO3 ABG O2 Saturation ABG Base Excess ABG Hemoglobin Oxyhemoglobin Sodium Potassium Chloride Carbon Dioxide BUN 73 H Creatinine 1.4 H Glucose 119 H POC Glucose 124 H Lactic Acid Calcium Ionized Calcium Phosphorus Magnesium Total Bilirubin AST ALT Alkaline Phosphatase Ammonia Total Creatine Kinase CK-MB (CK-2) CK-MB (CK-2) Rel Index Total Protein Albumin Urine WBC (Auto) Vancomycin Trough Salicylates Acetaminophen Plasma/Serum Alcohol Crossmatch 12/27/19 12/27/19 12/27/19 05:45 11:45 17:29 WBC RBC Hgb Hct MCH RDW Plt Count Lymph % (Auto) [place] % (Auto) [place] # Baso # Seg Neutrophils % Seg Neuts % (Manual) Lymphocytes % (Manual) Monocytes % (Manual) Seg Neutrophils # Seg Neutrophils # Man Lymphocytes # (Manual) Monocytes # (Manual) Eosinophils # (Manual) Basophils # (Manual) PT INR APTT ABG pH ABG pO2 ABG HCO3 ABG O2 Saturation ABG Base Excess ABG Hemoglobin Oxyhemoglobin Sodium Potassium Chloride Carbon Dioxide BUN Creatinine Glucose POC Glucose 131 H 123 H 134 H Lactic Acid Calcium Ionized Calcium Phosphorus Magnesium Total Bilirubin AST ALT Alkaline Phosphatase Ammonia Total Creatine Kinase CK-MB (CK-2) CK-MB (CK-2) Rel Index Total Protein Albumin Urine WBC (Auto) Vancomycin Trough Salicylates Acetaminophen Plasma/Serum Alcohol Crossmatch 12/28/19 12/28/19 12/28/19 00:12 05:14 11:53 WBC RBC Hgb Hct MCH RDW Plt Count Lymph % (Auto) [place] % (Auto) [place] # Baso # Seg Neutrophils % Seg Neuts % (Manual) Lymphocytes % (Manual) Monocytes % (Manual) Seg Neutrophils # Seg Neutrophils # Man Lymphocytes # (Manual) Monocytes # (Manual) Eosinophils # (Manual) Basophils # (Manual) PT INR APTT ABG pH ABG pO2 ABG HCO3 ABG O2 Saturation ABG Base Excess ABG Hemoglobin Oxyhemoglobin Sodium Potassium Chloride Carbon Dioxide BUN Creatinine Glucose POC Glucose 138 H 130 H 146 H Lactic Acid Calcium Ionized Calcium Phosphorus Magnesium Total Bilirubin AST ALT Alkaline Phosphatase Ammonia Total Creatine Kinase CK-MB (CK-2) CK-MB (CK-2) Rel Index Total Protein Albumin Urine WBC (Auto) Vancomycin Trough Salicylates Acetaminophen Plasma/Serum Alcohol Crossmatch 12/28/19 12/29/19 12/29/19 17:39 00:01 18:11 WBC RBC Hgb Hct MCH RDW Plt Count Lymph % (Auto) [place] % (Auto) [place] # Baso # Seg Neutrophils % Seg Neuts % (Manual) Lymphocytes % (Manual) Monocytes % (Manual) Seg Neutrophils # Seg Neutrophils # Man Lymphocytes # (Manual) Monocytes # (Manual) Eosinophils # (Manual) Basophils # (Manual) PT INR APTT ABG pH ABG pO2 ABG HCO3 ABG O2 Saturation ABG Base Excess ABG Hemoglobin Oxyhemoglobin Sodium Potassium Chloride Carbon Dioxide BUN Creatinine Glucose POC Glucose 117 H 139 H 130 H Lactic Acid Calcium Ionized Calcium Phosphorus Magnesium Total Bilirubin AST ALT Alkaline Phosphatase Ammonia Total Creatine Kinase CK-MB (CK-2) CK-MB (CK-2) Rel Index Total Protein Albumin Urine WBC (Auto) Vancomycin Trough Salicylates Acetaminophen Plasma/Serum Alcohol Crossmatch 12/29/19 12/30/19 12/30/19 23:09 00:02 01:06 WBC 16.7 H RBC 2.91 L Hgb 8.2 L Hct 25.4 L MCH RDW 18.7 H Plt Count 708 H Lymph % (Auto) 9.4 L [place] % (Auto) [place] # 0.9 H Baso # Seg Neutrophils % 83.5 H Seg Neuts % (Manual) Lymphocytes % (Manual) Monocytes % (Manual) Seg Neutrophils # 14.0 H Seg Neutrophils # Man Lymphocytes # (Manual) Monocytes # (Manual) Eosinophils # (Manual) Basophils # (Manual) PT INR APTT ABG pH ABG pO2 ABG HCO3 ABG O2 Saturation ABG Base Excess ABG Hemoglobin Oxyhemoglobin Sodium Potassium Chloride Carbon Dioxide BUN Creatinine Glucose POC Glucose 120 H 114 H Lactic Acid Calcium Ionized Calcium Phosphorus Magnesium Total Bilirubin AST ALT Alkaline Phosphatase Ammonia Total Creatine Kinase CK-MB (CK-2) CK-MB (CK-2) Rel Index Total Protein Albumin Urine WBC (Auto) Vancomycin Trough Salicylates Acetaminophen Plasma/Serum Alcohol Crossmatch 12/30/19 12/30/19 12/30/19 01:06 04:23 05:18 WBC RBC Hgb Hct MCH RDW Plt Count Lymph % (Auto) [place] % (Auto) [place] # Baso # Seg Neutrophils % Seg Neuts % (Manual) Lymphocytes % (Manual) Monocytes % (Manual) Seg Neutrophils # Seg Neutrophils # Man Lymphocytes # (Manual) Monocytes # (Manual) Eosinophils # (Manual) Basophils # (Manual) PT INR APTT ABG pH ABG pO2 ABG HCO3 ABG O2 Saturation ABG Base Excess ABG Hemoglobin 8.3 L Oxyhemoglobin Sodium Potassium Chloride Carbon Dioxide BUN 70 H Creatinine Glucose 122 H POC Glucose 130 H Lactic Acid Calcium Ionized Calcium Phosphorus Magnesium Total Bilirubin AST ALT Alkaline Phosphatase Ammonia Total Creatine Kinase CK-MB (CK-2) CK-MB (CK-2) Rel Index Total Protein Albumin Urine WBC (Auto) Vancomycin Trough Salicylates Acetaminophen Plasma/Serum Alcohol Crossmatch 12/30/19 12/30/19 12/30/19 05:40 12:17 17:43 WBC RBC Hgb Hct MCH RDW Plt Count Lymph % (Auto) [place] % (Auto) [place] # Baso # Seg Neutrophils % Seg Neuts % (Manual) Lymphocytes % (Manual) Monocytes % (Manual) Seg Neutrophils # Seg Neutrophils # Man Lymphocytes # (Manual) Monocytes # (Manual) Eosinophils # (Manual) Basophils # (Manual) PT INR APTT ABG pH ABG pO2 ABG HCO3 ABG O2 Saturation ABG Base Excess ABG Hemoglobin Oxyhemoglobin Sodium Potassium Chloride Carbon Dioxide BUN Creatinine Glucose POC Glucose 135 H 132 H 118 H Lactic Acid Calcium Ionized Calcium Phosphorus Magnesium Total Bilirubin AST ALT Alkaline Phosphatase Ammonia Total Creatine Kinase CK-MB (CK-2) CK-MB (CK-2) Rel Index Total Protein Albumin Urine WBC (Auto) Vancomycin Trough Salicylates Acetaminophen Plasma/Serum Alcohol Crossmatch 12/30/19 12/31/19 12/31/19 23:29 05:19 17:50 WBC RBC Hgb Hct MCH RDW Plt Count Lymph % (Auto) [place] % (Auto) [place] # Baso # Seg Neutrophils % Seg Neuts % (Manual) Lymphocytes % (Manual) Monocytes % (Manual) Seg Neutrophils # Seg Neutrophils # Man Lymphocytes # (Manual) Monocytes # (Manual) Eosinophils # (Manual) Basophils # (Manual) PT INR APTT ABG pH ABG pO2 ABG HCO3 ABG O2 Saturation ABG Base Excess ABG Hemoglobin Oxyhemoglobin Sodium Potassium Chloride Carbon Dioxide BUN Creatinine Glucose POC Glucose 114 H 109 H 116 H Lactic Acid Calcium Ionized Calcium Phosphorus Magnesium Total Bilirubin AST ALT Alkaline Phosphatase Ammonia Total Creatine Kinase CK-MB (CK-2) CK-MB (CK-2) Rel Index Total Protein Albumin Urine WBC (Auto) Vancomycin Trough Salicylates Acetaminophen Plasma/Serum Alcohol Crossmatch 01/01/20 01/01/20 01/01/20 00:10 05:19 12:02 WBC RBC Hgb Hct MCH RDW Plt Count Lymph % (Auto) [place] % (Auto) [place] # Baso # Seg Neutrophils % Seg Neuts % (Manual) Lymphocytes % (Manual) Monocytes % (Manual) Seg Neutrophils # Seg Neutrophils # Man Lymphocytes # (Manual) Monocytes # (Manual) Eosinophils # (Manual) Basophils # (Manual) PT INR APTT ABG pH ABG pO2 ABG HCO3 ABG O2 Saturation ABG Base Excess ABG Hemoglobin Oxyhemoglobin Sodium Potassium Chloride Carbon Dioxide BUN Creatinine Glucose POC Glucose 131 H 122 H 136 H Lactic Acid Calcium Ionized Calcium Phosphorus Magnesium Total Bilirubin AST ALT Alkaline Phosphatase Ammonia Total Creatine Kinase CK-MB (CK-2) CK-MB (CK-2) Rel Index Total Protein Albumin Urine WBC (Auto) Vancomycin Trough Salicylates Acetaminophen Plasma/Serum Alcohol Crossmatch 01/02/20 01/02/20 01/02/20 00:24 05:36 11:41 WBC RBC Hgb Hct MCH RDW Plt Count Lymph % (Auto) [place] % (Auto) [place] # Baso # Seg Neutrophils % Seg Neuts % (Manual) Lymphocytes % (Manual) Monocytes % (Manual) Seg Neutrophils # Seg Neutrophils # Man Lymphocytes # (Manual) Monocytes # (Manual) Eosinophils # (Manual) Basophils # (Manual) PT INR APTT ABG pH ABG pO2 ABG HCO3 ABG O2 Saturation ABG Base Excess ABG Hemoglobin Oxyhemoglobin Sodium Potassium Chloride Carbon Dioxide BUN Creatinine Glucose POC Glucose 119 H 109 H 125 H Lactic Acid Calcium Ionized Calcium Phosphorus Magnesium Total Bilirubin AST ALT Alkaline Phosphatase Ammonia Total Creatine Kinase CK-MB (CK-2) CK-MB (CK-2) Rel Index Total Protein Albumin Urine WBC (Auto) Vancomycin Trough Salicylates Acetaminophen Plasma/Serum Alcohol Crossmatch 01/02/20 01/03/20 01/03/20 17:49 05:29 12:13 WBC RBC Hgb Hct MCH RDW Plt Count Lymph % (Auto) [place] % (Auto) [place] # Baso # Seg Neutrophils % Seg Neuts % (Manual) Lymphocytes % (Manual) Monocytes % (Manual) Seg Neutrophils # Seg Neutrophils # Man Lymphocytes # (Manual) Monocytes # (Manual) Eosinophils # (Manual) Basophils # (Manual) PT INR APTT ABG pH ABG pO2 ABG HCO3 ABG O2 Saturation ABG Base Excess ABG Hemoglobin Oxyhemoglobin Sodium Potassium Chloride Carbon Dioxide BUN Creatinine Glucose POC Glucose 130 H 132 H 113 H Lactic Acid Calcium Ionized Calcium Phosphorus Magnesium Total Bilirubin AST ALT Alkaline Phosphatase Ammonia Total Creatine Kinase CK-MB (CK-2) CK-MB (CK-2) Rel Index Total Protein Albumin Urine WBC (Auto) Vancomycin Trough Salicylates Acetaminophen Plasma/Serum Alcohol Crossmatch 01/03/20 01/04/20 01/04/20 17:32 00:19 05:26 WBC RBC Hgb Hct MCH RDW Plt Count Lymph % (Auto) [place] % (Auto) [place] # Baso # Seg Neutrophils % Seg Neuts % (Manual) Lymphocytes % (Manual) Monocytes % (Manual) Seg Neutrophils # Seg Neutrophils # Man Lymphocytes # (Manual) Monocytes # (Manual) Eosinophils # (Manual) Basophils # (Manual) PT INR APTT ABG pH ABG pO2 ABG HCO3 ABG O2 Saturation ABG Base Excess ABG Hemoglobin Oxyhemoglobin Sodium Potassium Chloride Carbon Dioxide BUN Creatinine Glucose POC Glucose 127 H 141 H 129 H Lactic Acid Calcium Ionized Calcium Phosphorus Magnesium Total Bilirubin AST ALT Alkaline Phosphatase Ammonia Total Creatine Kinase CK-MB (CK-2) CK-MB (CK-2) Rel Index Total Protein Albumin Urine WBC (Auto) Vancomycin Trough Salicylates Acetaminophen Plasma/Serum Alcohol Crossmatch 01/04/20 01/04/20 01/05/20 11:39 17:29 05:22 WBC RBC Hgb Hct MCH RDW Plt Count Lymph % (Auto) [place] % (Auto) [place] # Baso # Seg Neutrophils % Seg Neuts % (Manual) Lymphocytes % (Manual) Monocytes % (Manual) Seg Neutrophils # Seg Neutrophils # Man Lymphocytes # (Manual) Monocytes # (Manual) Eosinophils # (Manual) Basophils # (Manual) PT INR APTT ABG pH ABG pO2 ABG HCO3 ABG O2 Saturation ABG Base Excess ABG Hemoglobin Oxyhemoglobin Sodium Potassium Chloride Carbon Dioxide BUN Creatinine Glucose POC Glucose 167 H 132 H 121 H Lactic Acid Calcium Ionized Calcium Phosphorus Magnesium Total Bilirubin AST ALT Alkaline Phosphatase Ammonia Total Creatine Kinase CK-MB (CK-2) CK-MB (CK-2) Rel Index Total Protein Albumin Urine WBC (Auto) Vancomycin Trough Salicylates Acetaminophen Plasma/Serum Alcohol Crossmatch 01/05/20 01/05/20 01/05/20 12:25 17:40 18:06 WBC RBC Hgb Hct MCH RDW Plt Count Lymph % (Auto) [place] % (Auto) [place] # Baso # Seg Neutrophils % Seg Neuts % (Manual) Lymphocytes % (Manual) Monocytes % (Manual) Seg Neutrophils # Seg Neutrophils # Man Lymphocytes # (Manual) Monocytes # (Manual) Eosinophils # (Manual) Basophils # (Manual) PT INR APTT ABG pH 7.472 H ABG pO2 99.2 H ABG HCO3 ABG O2 Saturation ABG Base Excess ABG Hemoglobin 7.8 L Oxyhemoglobin Sodium Potassium Chloride Carbon Dioxide BUN Creatinine Glucose POC Glucose 106 H 110 H Lactic Acid Calcium Ionized Calcium Phosphorus Magnesium Total Bilirubin AST ALT Alkaline Phosphatase Ammonia Total Creatine Kinase CK-MB (CK-2) CK-MB (CK-2) Rel Index Total Protein Albumin Urine WBC (Auto) Vancomycin Trough Salicylates Acetaminophen Plasma/Serum Alcohol Crossmatch 01/06/20 01/06/20 01/06/20 00:11 05:16 11:30 WBC RBC Hgb Hct MCH RDW Plt Count Lymph % (Auto) [place] % (Auto) [place] # Baso # Seg Neutrophils % Seg Neuts % (Manual) Lymphocytes % (Manual) Monocytes % (Manual) Seg Neutrophils # Seg Neutrophils # Man Lymphocytes # (Manual) Monocytes # (Manual) Eosinophils # (Manual) Basophils # (Manual) PT INR APTT ABG pH ABG pO2 ABG HCO3 ABG O2 Saturation ABG Base Excess ABG Hemoglobin Oxyhemoglobin Sodium Potassium Chloride Carbon Dioxide BUN Creatinine Glucose POC Glucose 108 H 124 H 125 H Lactic Acid Calcium Ionized Calcium Phosphorus Magnesium Total Bilirubin AST ALT Alkaline Phosphatase Ammonia Total Creatine Kinase CK-MB (CK-2) CK-MB (CK-2) Rel Index Total Protein Albumin Urine WBC (Auto) Vancomycin Trough Salicylates Acetaminophen Plasma/Serum Alcohol Crossmatch 01/06/20 01/06/20 01/07/20 17:53 23:51 04:12 WBC 16.5 H RBC 3.29 L Hgb 9.3 L Hct 28.1 L MCH RDW 18.2 H Plt Count 526 H Lymph % (Auto) 8.4 L [place] % (Auto) [place] # 1.0 H Baso # Seg Neutrophils % 84.4 H Seg Neuts % (Manual) Lymphocytes % (Manual) Monocytes % (Manual) Seg Neutrophils # 13.9 H Seg Neutrophils # Man Lymphocytes # (Manual) Monocytes # (Manual) Eosinophils # (Manual) Basophils # (Manual) PT INR APTT ABG pH ABG pO2 ABG HCO3 ABG O2 Saturation ABG Base Excess ABG Hemoglobin Oxyhemoglobin Sodium Potassium Chloride Carbon Dioxide BUN Creatinine Glucose POC Glucose 166 H 128 H Lactic Acid Calcium Ionized Calcium Phosphorus Magnesium Total Bilirubin AST ALT Alkaline Phosphatase Ammonia Total Creatine Kinase CK-MB (CK-2) CK-MB (CK-2) Rel Index Total Protein Albumin Urine WBC (Auto) Vancomycin Trough Salicylates Acetaminophen Plasma/Serum Alcohol Crossmatch 01/07/20 01/07/20 01/07/20 04:12 04:45 11:51 WBC RBC Hgb Hct MCH RDW Plt Count Lymph % (Auto) [place] % (Auto) [place] # Baso # Seg Neutrophils % Seg Neuts % (Manual) Lymphocytes % (Manual) Monocytes % (Manual) Seg Neutrophils # Seg Neutrophils # Man Lymphocytes # (Manual) Monocytes # (Manual) Eosinophils # (Manual) Basophils # (Manual) PT INR APTT ABG pH ABG pO2 ABG HCO3 ABG O2 Saturation ABG Base Excess ABG Hemoglobin Oxyhemoglobin Sodium 136 L Potassium Chloride Carbon Dioxide 21 L BUN 44 H Creatinine 0.6 L Glucose 124 H POC Glucose 134 H 138 H Lactic Acid Calcium Ionized Calcium Phosphorus Magnesium Total Bilirubin AST ALT Alkaline Phosphatase Ammonia Total Creatine Kinase CK-MB (CK-2) CK-MB (CK-2) Rel Index Total Protein Albumin Urine WBC (Auto) Vancomycin Trough Salicylates Acetaminophen Plasma/Serum Alcohol Crossmatch 01/07/20 01/08/20 01/08/20 17:36 00:33 05:29 WBC RBC Hgb Hct MCH RDW Plt Count Lymph % (Auto) [place] % (Auto) [place] # Baso # Seg Neutrophils % Seg Neuts % (Manual) Lymphocytes % (Manual) Monocytes % (Manual) Seg Neutrophils # Seg Neutrophils # Man Lymphocytes # (Manual) Monocytes # (Manual) Eosinophils # (Manual) Basophils # (Manual) PT INR APTT ABG pH ABG pO2 ABG HCO3 ABG O2 Saturation ABG Base Excess ABG Hemoglobin Oxyhemoglobin Sodium Potassium Chloride Carbon Dioxide BUN Creatinine Glucose POC Glucose 128 H 119 H 124 H Lactic Acid Calcium Ionized Calcium Phosphorus Magnesium Total Bilirubin AST ALT Alkaline Phosphatase Ammonia Total Creatine Kinase CK-MB (CK-2) CK-MB (CK-2) Rel Index Total Protein Albumin Urine WBC (Auto) Vancomycin Trough Salicylates Acetaminophen Plasma/Serum Alcohol Crossmatch 01/08/20 01/08/20 01/08/20 12:51 20:25 23:22 WBC RBC Hgb Hct MCH RDW Plt Count Lymph % (Auto) [place] % (Auto) [place] # Baso # Seg Neutrophils % Seg Neuts % (Manual) Lymphocytes % (Manual) Monocytes % (Manual) Seg Neutrophils # Seg Neutrophils # Man Lymphocytes # (Manual) Monocytes # (Manual) Eosinophils # (Manual) Basophils # (Manual) PT INR APTT ABG pH ABG pO2 132.2 H ABG HCO3 ABG O2 Saturation ABG Base Excess ABG Hemoglobin Oxyhemoglobin Sodium Potassium Chloride Carbon Dioxide BUN Creatinine Glucose POC Glucose 128 H 127 H Lactic Acid Calcium Ionized Calcium Phosphorus Magnesium Total Bilirubin AST ALT Alkaline Phosphatase Ammonia Total Creatine Kinase CK-MB (CK-2) CK-MB (CK-2) Rel Index Total Protein Albumin Urine WBC (Auto) Vancomycin Trough Salicylates Acetaminophen Plasma/Serum Alcohol Crossmatch 01/09/20 01/09/20 01/09/20 05:48 08:51 11:29 WBC RBC Hgb Hct MCH RDW Plt Count Lymph % (Auto) [place] % (Auto) [place] # Baso # Seg Neutrophils % Seg Neuts % (Manual) Lymphocytes % (Manual) Monocytes % (Manual) Seg Neutrophils # Seg Neutrophils # Man Lymphocytes # (Manual) Monocytes # (Manual) Eosinophils # (Manual) Basophils # (Manual) PT INR APTT ABG pH ABG pO2 94.3 H ABG HCO3 ABG O2 Saturation ABG Base Excess ABG Hemoglobin 9.5 L Oxyhemoglobin Sodium Potassium Chloride Carbon Dioxide BUN Creatinine Glucose POC Glucose 120 H 112 H Lactic Acid Calcium Ionized Calcium Phosphorus Magnesium Total Bilirubin AST ALT Alkaline Phosphatase Ammonia Total Creatine Kinase CK-MB (CK-2) CK-MB (CK-2) Rel Index Total Protein Albumin Urine WBC (Auto) Vancomycin Trough Salicylates Acetaminophen Plasma/Serum Alcohol Crossmatch 01/09/20 01/10/20 01/10/20 17:57 05:17 12:28 WBC RBC Hgb Hct MCH RDW Plt Count Lymph % (Auto) [place] % (Auto) [place] # Baso # Seg Neutrophils % Seg Neuts % (Manual) Lymphocytes % (Manual) Monocytes % (Manual) Seg Neutrophils # Seg Neutrophils # Man Lymphocytes # (Manual) Monocytes # (Manual) Eosinophils # (Manual) Basophils # (Manual) PT INR APTT ABG pH ABG pO2 ABG HCO3 ABG O2 Saturation ABG Base Excess ABG Hemoglobin Oxyhemoglobin Sodium Potassium Chloride Carbon Dioxide BUN Creatinine Glucose POC Glucose 122 H 115 H 116 H Lactic Acid Calcium Ionized Calcium Phosphorus Magnesium Total Bilirubin AST ALT Alkaline Phosphatase Ammonia Total Creatine Kinase CK-MB (CK-2) CK-MB (CK-2) Rel Index Total Protein Albumin Urine WBC (Auto) Vancomycin Trough Salicylates Acetaminophen Plasma/Serum Alcohol Crossmatch 01/10/20 01/10/20 01/11/20 18:25 23:47 06:05 WBC RBC Hgb Hct MCH RDW Plt Count Lymph % (Auto) [place] % (Auto) [place] # Baso # Seg Neutrophils % Seg Neuts % (Manual) Lymphocytes % (Manual) Monocytes % (Manual) Seg Neutrophils # Seg Neutrophils # Man Lymphocytes # (Manual) Monocytes # (Manual) Eosinophils # (Manual) Basophils # (Manual) PT INR APTT ABG pH ABG pO2 ABG HCO3 ABG O2 Saturation ABG Base Excess ABG Hemoglobin Oxyhemoglobin Sodium Potassium Chloride Carbon Dioxide BUN Creatinine Glucose POC Glucose 123 H 115 H 151 H Lactic Acid Calcium Ionized Calcium Phosphorus Magnesium Total Bilirubin AST ALT Alkaline Phosphatase Ammonia Total Creatine Kinase CK-MB (CK-2) CK-MB (CK-2) Rel Index Total Protein Albumin Urine WBC (Auto) Vancomycin Trough Salicylates Acetaminophen Plasma/Serum Alcohol Crossmatch 01/11/20 01/11/20 01/11/20 07:00 07:00 12:27 WBC 11.8 H RBC 3.40 L Hgb 9.4 L Hct 29.3 L MCH RDW 18.1 H Plt Count 549 H Lymph % (Auto) [place] % (Auto) 9.1 H [place] # 1.1 H Baso # Seg Neutrophils % 73.3 H Seg Neuts % (Manual) Lymphocytes % (Manual) Monocytes % (Manual) Seg Neutrophils # 8.7 H Seg Neutrophils # Man Lymphocytes # (Manual) Monocytes # (Manual) Eosinophils # (Manual) Basophils # (Manual) PT INR APTT ABG pH ABG pO2 ABG HCO3 ABG O2 Saturation ABG Base Excess ABG Hemoglobin Oxyhemoglobin Sodium 134 L Potassium Chloride 97.7 L Carbon Dioxide 21 L BUN 38 H Creatinine 0.5 L Glucose 168 H POC Glucose 117 H Lactic Acid Calcium 10.5 H Ionized Calcium Phosphorus Magnesium Total Bilirubin AST ALT Alkaline Phosphatase Ammonia Total Creatine Kinase CK-MB (CK-2) CK-MB (CK-2) Rel Index Total Protein Albumin Urine WBC (Auto) Vancomycin Trough Salicylates Acetaminophen Plasma/Serum Alcohol Crossmatch 01/11/20 01/12/20 01/12/20 18:19 00:53 05:24 WBC RBC Hgb Hct MCH RDW Plt Count Lymph % (Auto) [place] % (Auto) [place] # Baso # Seg Neutrophils % Seg Neuts % (Manual) Lymphocytes % (Manual) Monocytes % (Manual) Seg Neutrophils # Seg Neutrophils # Man Lymphocytes # (Manual) Monocytes # (Manual) Eosinophils # (Manual) Basophils # (Manual) PT INR APTT ABG pH ABG pO2 ABG HCO3 ABG O2 Saturation ABG Base Excess ABG Hemoglobin Oxyhemoglobin Sodium Potassium Chloride Carbon Dioxide BUN Creatinine Glucose POC Glucose 126 H 126 H 128 H Lactic Acid Calcium Ionized Calcium Phosphorus Magnesium Total Bilirubin AST ALT Alkaline Phosphatase Ammonia Total Creatine Kinase CK-MB (CK-2) CK-MB (CK-2) Rel Index Total Protein Albumin Urine WBC (Auto) Vancomycin Trough Salicylates Acetaminophen Plasma/Serum Alcohol Crossmatch 01/12/20 01/12/20 01/13/20 13:39 18:02 00:27 WBC RBC Hgb Hct MCH RDW Plt Count Lymph % (Auto) [place] % (Auto) [place] # Baso # Seg Neutrophils % Seg Neuts % (Manual) Lymphocytes % (Manual) Monocytes % (Manual) Seg Neutrophils # Seg Neutrophils # Man Lymphocytes # (Manual) Monocytes # (Manual) Eosinophils # (Manual) Basophils # (Manual) PT INR APTT ABG pH ABG pO2 ABG HCO3 ABG O2 Saturation ABG Base Excess ABG Hemoglobin Oxyhemoglobin Sodium Potassium Chloride Carbon Dioxide BUN Creatinine Glucose POC Glucose 146 H 125 H 131 H Lactic Acid Calcium Ionized Calcium Phosphorus Magnesium Total Bilirubin AST ALT Alkaline Phosphatase Ammonia Total Creatine Kinase CK-MB (CK-2) CK-MB (CK-2) Rel Index Total Protein Albumin Urine WBC (Auto) Vancomycin Trough Salicylates Acetaminophen Plasma/Serum Alcohol Crossmatch 01/13/20 01/13/20 01/13/20 05:44 11:54 17:18 WBC RBC Hgb Hct MCH RDW Plt Count Lymph % (Auto) [place] % (Auto) [place] # Baso # Seg Neutrophils % Seg Neuts % (Manual) Lymphocytes % (Manual) Monocytes % (Manual) Seg Neutrophils # Seg Neutrophils # Man Lymphocytes # (Manual) Monocytes # (Manual) Eosinophils # (Manual) Basophils # (Manual) PT INR APTT ABG pH ABG pO2 ABG HCO3 ABG O2 Saturation ABG Base Excess ABG Hemoglobin Oxyhemoglobin Sodium Potassium Chloride Carbon Dioxide BUN Creatinine Glucose POC Glucose 148 H 140 H 130 H Lactic Acid Calcium Ionized Calcium Phosphorus Magnesium Total Bilirubin AST ALT Alkaline Phosphatase Ammonia Total Creatine Kinase CK-MB (CK-2) CK-MB (CK-2) Rel Index Total Protein Albumin Urine WBC (Auto) Vancomycin Trough Salicylates Acetaminophen Plasma/Serum Alcohol Crossmatch 01/14/20 01/14/20 01/14/20 00:16 05:45 12:19 WBC RBC Hgb Hct MCH RDW Plt Count Lymph % (Auto) [place] % (Auto) [place] # Baso # Seg Neutrophils % Seg Neuts % (Manual) Lymphocytes % (Manual) Monocytes % (Manual) Seg Neutrophils # Seg Neutrophils # Man Lymphocytes # (Manual) Monocytes # (Manual) Eosinophils # (Manual) Basophils # (Manual) PT INR APTT ABG pH ABG pO2 ABG HCO3 ABG O2 Saturation ABG Base Excess ABG Hemoglobin Oxyhemoglobin Sodium Potassium Chloride Carbon Dioxide BUN Creatinine Glucose POC Glucose 125 H 146 H 147 H Lactic Acid Calcium Ionized Calcium Phosphorus Magnesium Total Bilirubin AST ALT Alkaline Phosphatase Ammonia Total Creatine Kinase CK-MB (CK-2) CK-MB (CK-2) Rel Index Total Protein Albumin Urine WBC (Auto) Vancomycin Trough Salicylates Acetaminophen Plasma/Serum Alcohol Crossmatch 01/14/20 01/14/20 01/15/20 18:10 23:54 05:14 WBC RBC Hgb Hct MCH RDW Plt Count Lymph % (Auto) [place] % (Auto) [place] # Baso # Seg Neutrophils % Seg Neuts % (Manual) Lymphocytes % (Manual) Monocytes % (Manual) Seg Neutrophils # Seg Neutrophils # Man Lymphocytes # (Manual) Monocytes # (Manual) Eosinophils # (Manual) Basophils # (Manual) PT INR APTT ABG pH ABG pO2 ABG HCO3 ABG O2 Saturation ABG Base Excess ABG Hemoglobin Oxyhemoglobin Sodium Potassium Chloride Carbon Dioxide BUN Creatinine Glucose POC Glucose 136 H 109 H 111 H Lactic Acid Calcium Ionized Calcium Phosphorus Magnesium Total Bilirubin AST ALT Alkaline Phosphatase Ammonia Total Creatine Kinase CK-MB (CK-2) CK-MB (CK-2) Rel Index Total Protein Albumin Urine WBC (Auto) Vancomycin Trough Salicylates Acetaminophen Plasma/Serum Alcohol Crossmatch 01/15/20 01/15/2020 12:34 23:25 05:06 WBC RBC Hgb Hct MCH RDW Plt Count Lymph % (Auto) [place] % (Auto) [place] # Baso # Seg Neutrophils % Seg Neuts % (Manual) Lymphocytes % (Manual) Monocytes % (Manual) Seg Neutrophils # Seg Neutrophils # Man Lymphocytes # (Manual) Monocytes # (Manual) Eosinophils # (Manual) Basophils # (Manual) PT INR APTT ABG pH ABG pO2 ABG HCO3 ABG O2 Saturation ABG Base Excess ABG Hemoglobin Oxyhemoglobin Sodium Potassium Chloride Carbon Dioxide BUN Creatinine Glucose POC Glucose 131 H 120 H 121 H Lactic Acid Calcium Ionized Calcium Phosphorus Magnesium Total Bilirubin AST ALT Alkaline Phosphatase Ammonia Total Creatine Kinase CK-MB (CK-2) CK-MB (CK-2) Rel Index Total Protein Albumin Urine WBC (Auto) Vancomycin Trough Salicylates Acetaminophen Plasma/Serum Alcohol Crossmatch 01/16/20 01/16/20 01/17/20 12:15 23:46 05:32 WBC 13.6 H RBC 3.27 L Hgb 9.3 L Hct 28.5 L MCH RDW 17.0 H Plt Count 490 H Lymph % (Auto) 13.1 L [place] % (Auto) [place] # 1.0 H Baso # Seg Neutrophils % 77.5 H Seg Neuts % (Manual) Lymphocytes % (Manual) Monocytes % (Manual) Seg Neutrophils # 10.5 H Seg Neutrophils # Man Lymphocytes # (Manual) Monocytes # (Manual) Eosinophils # (Manual) Basophils # (Manual) PT INR APTT ABG pH ABG pO2 ABG HCO3 ABG O2 Saturation ABG Base Excess ABG Hemoglobin Oxyhemoglobin Sodium Potassium Chloride Carbon Dioxide BUN Creatinine Glucose POC Glucose 152 H 107 H Lactic Acid Calcium Ionized Calcium Phosphorus Magnesium Total Bilirubin AST ALT Alkaline Phosphatase Ammonia Total Creatine Kinase CK-MB (CK-2) CK-MB (CK-2) Rel Index Total Protein Albumin Urine WBC (Auto) Vancomycin Trough Salicylates Acetaminophen Plasma/Serum Alcohol Crossmatch 01/17/20 01/17/20 01/17/20 06:47 12:16 17:21 WBC RBC Hgb Hct MCH RDW Plt Count Lymph % (Auto) [place] % (Auto) [place] # Baso # Seg Neutrophils % Seg Neuts % (Manual) Lymphocytes % (Manual) Monocytes % (Manual) Seg Neutrophils # Seg Neutrophils # Man Lymphocytes # (Manual) Monocytes # (Manual) Eosinophils # (Manual) Basophils # (Manual) PT INR APTT ABG pH ABG pO2 ABG HCO3 ABG O2 Saturation ABG Base Excess ABG Hemoglobin Oxyhemoglobin Sodium Potassium Chloride Carbon Dioxide BUN Creatinine Glucose POC Glucose 112 H 145 H 150 H Lactic Acid Calcium Ionized Calcium Phosphorus Magnesium Total Bilirubin AST ALT Alkaline Phosphatase Ammonia Total Creatine Kinase CK-MB (CK-2) CK-MB (CK-2) Rel Index Total Protein Albumin Urine WBC (Auto) Vancomycin Trough Salicylates Acetaminophen Plasma/Serum Alcohol Crossmatch 01/17/20 01/18/20 01/18/20 23:34 05:47 12:43 WBC RBC Hgb Hct MCH RDW Plt Count Lymph % (Auto) [place] % (Auto) [place] # Baso # Seg Neutrophils % Seg Neuts % (Manual) Lymphocytes % (Manual) Monocytes % (Manual) Seg Neutrophils # Seg Neutrophils # Man Lymphocytes # (Manual) Monocytes # (Manual) Eosinophils # (Manual) Basophils # (Manual) PT INR APTT ABG pH ABG pO2 ABG HCO3 ABG O2 Saturation ABG Base Excess ABG Hemoglobin Oxyhemoglobin Sodium Potassium Chloride Carbon Dioxide BUN Creatinine Glucose POC Glucose 160 H 130 H 124 H Lactic Acid Calcium Ionized Calcium Phosphorus Magnesium Total Bilirubin AST ALT Alkaline Phosphatase Ammonia Total Creatine Kinase CK-MB (CK-2) CK-MB (CK-2) Rel Index Total Protein Albumin Urine WBC (Auto) Vancomycin Trough Salicylates Acetaminophen Plasma/Serum Alcohol Crossmatch 01/18/20 01/19/20 01/19/20 18:26 00:14 06:24 WBC RBC Hgb Hct MCH RDW Plt Count Lymph % (Auto) [place] % (Auto) [place] # Baso # Seg Neutrophils % Seg Neuts % (Manual) Lymphocytes % (Manual) Monocytes % (Manual) Seg Neutrophils # Seg Neutrophils # Man Lymphocytes # (Manual) Monocytes # (Manual) Eosinophils # (Manual) Basophils # (Manual) PT INR APTT ABG pH ABG pO2 ABG HCO3 ABG O2 Saturation ABG Base Excess ABG Hemoglobin Oxyhemoglobin Sodium Potassium Chloride Carbon Dioxide BUN Creatinine Glucose POC Glucose 119 H 114 H 144 H Lactic Acid Calcium Ionized Calcium Phosphorus Magnesium Total Bilirubin AST ALT Alkaline Phosphatase Ammonia Total Creatine Kinase CK-MB (CK-2) CK-MB (CK-2) Rel Index Total Protein Albumin Urine WBC (Auto) Vancomycin Trough Salicylates Acetaminophen Plasma/Serum Alcohol Crossmatch 01/19/20 01/19/20 01/20/20 12:24 17:50 12:06 WBC RBC Hgb Hct MCH RDW Plt Count Lymph % (Auto) [place] % (Auto) [place] # Baso # Seg Neutrophils % Seg Neuts % (Manual) Lymphocytes % (Manual) Monocytes % (Manual) Seg Neutrophils # Seg Neutrophils # Man Lymphocytes # (Manual) Monocytes # (Manual) Eosinophils # (Manual) Basophils # (Manual) PT INR APTT ABG pH ABG pO2 ABG HCO3 ABG O2 Saturation ABG Base Excess ABG Hemoglobin Oxyhemoglobin Sodium Potassium Chloride Carbon Dioxide BUN Creatinine Glucose POC Glucose 132 H 144 H 135 H Lactic Acid Calcium Ionized Calcium Phosphorus Magnesium Total Bilirubin AST ALT Alkaline Phosphatase Ammonia Total Creatine Kinase CK-MB (CK-2) CK-MB (CK-2) Rel Index Total Protein Albumin Urine WBC (Auto) Vancomycin Trough Salicylates Acetaminophen Plasma/Serum Alcohol Crossmatch 01/21/20 01/21/20 01/21/20 05:46 13:02 23:49 WBC RBC Hgb Hct MCH RDW Plt Count Lymph % (Auto) [place] % (Auto) [place] # Baso # Seg Neutrophils % Seg Neuts % (Manual) Lymphocytes % (Manual) Monocytes % (Manual) Seg Neutrophils # Seg Neutrophils # Man Lymphocytes # (Manual) Monocytes # (Manual) Eosinophils # (Manual) Basophils # (Manual) PT INR APTT ABG pH ABG pO2 ABG HCO3 ABG O2 Saturation ABG Base Excess ABG Hemoglobin Oxyhemoglobin Sodium Potassium Chloride Carbon Dioxide BUN Creatinine Glucose POC Glucose 114 H 136 H 120 H Lactic Acid Calcium Ionized Calcium Phosphorus Magnesium Total Bilirubin AST ALT Alkaline Phosphatase Ammonia Total Creatine Kinase CK-MB (CK-2) CK-MB (CK-2) Rel Index Total Protein Albumin Urine WBC (Auto) Vancomycin Trough Salicylates Acetaminophen Plasma/Serum Alcohol Crossmatch 01/22/20 01/22/20 01/22/20 05:41 11:44 16:31 WBC RBC Hgb Hct MCH RDW Plt Count Lymph % (Auto) [place] % (Auto) [place] # Baso # Seg Neutrophils % Seg Neuts % (Manual) Lymphocytes % (Manual) Monocytes % (Manual) Seg Neutrophils # Seg Neutrophils # Man Lymphocytes # (Manual) Monocytes # (Manual) Eosinophils # (Manual) Basophils # (Manual) PT INR APTT ABG pH ABG pO2 ABG HCO3 ABG O2 Saturation ABG Base Excess ABG Hemoglobin Oxyhemoglobin Sodium Potassium Chloride Carbon Dioxide BUN Creatinine Glucose POC Glucose 124 H 173 H 111 H Lactic Acid Calcium Ionized Calcium Phosphorus Magnesium Total Bilirubin AST ALT Alkaline Phosphatase Ammonia Total Creatine Kinase CK-MB (CK-2) CK-MB (CK-2) Rel Index Total Protein Albumin Urine WBC (Auto) Vancomycin Trough Salicylates Acetaminophen Plasma/Serum Alcohol Crossmatch 01/22/20 01/23/20 01/23/20 23:25 05:15 12:15 WBC RBC Hgb Hct MCH RDW Plt Count Lymph % (Auto) [place] % (Auto) [place] # Baso # Seg Neutrophils % Seg Neuts % (Manual) Lymphocytes % (Manual) Monocytes % (Manual) Seg Neutrophils # Seg Neutrophils # Man Lymphocytes # (Manual) Monocytes # (Manual) Eosinophils # (Manual) Basophils # (Manual) PT INR APTT ABG pH ABG pO2 ABG HCO3 ABG O2 Saturation ABG Base Excess ABG Hemoglobin Oxyhemoglobin Sodium Potassium Chloride Carbon Dioxide BUN Creatinine Glucose POC Glucose 134 H 117 H 129 H Lactic Acid Calcium Ionized Calcium Phosphorus Magnesium Total Bilirubin AST ALT Alkaline Phosphatase Ammonia Total Creatine Kinase CK-MB (CK-2) CK-MB (CK-2) Rel Index Total Protein Albumin Urine WBC (Auto) Vancomycin Trough Salicylates Acetaminophen Plasma/Serum Alcohol Crossmatch 01/23/20 01/23/20 01/23/20 16:58 21:17 23:47 WBC RBC Hgb Hct MCH RDW Plt Count Lymph % (Auto) [place] % (Auto) [place] # Baso # Seg Neutrophils % Seg Neuts % (Manual) Lymphocytes % (Manual) Monocytes % (Manual) Seg Neutrophils # Seg Neutrophils # Man Lymphocytes # (Manual) Monocytes # (Manual) Eosinophils # (Manual) Basophils # (Manual) PT INR APTT ABG pH ABG pO2 ABG HCO3 ABG O2 Saturation ABG Base Excess ABG Hemoglobin Oxyhemoglobin Sodium Potassium Chloride Carbon Dioxide BUN Creatinine Glucose POC Glucose 156 H 185 H 156 H Lactic Acid Calcium Ionized Calcium Phosphorus Magnesium Total Bilirubin AST ALT Alkaline Phosphatase Ammonia Total Creatine Kinase CK-MB (CK-2) CK-MB (CK-2) Rel Index Total Protein Albumin Urine WBC (Auto) Vancomycin Trough Salicylates Acetaminophen Plasma/Serum Alcohol Crossmatch 01/24/20 01/24/20 01/24/20 04:47 04:47 05:59 WBC 17.8 H RBC 3.60 L Hgb Hct MCH RDW 16.2 H Plt Count 688 H Lymph % (Auto) 11.8 L [place] % (Auto) 7.5 H [place] # 1.3 H Baso # Seg Neutrophils % 79.9 H Seg Neuts % (Manual) Lymphocytes % (Manual) Monocytes % (Manual) Seg Neutrophils # 14.2 H Seg Neutrophils # Man Lymphocytes # (Manual) Monocytes # (Manual) Eosinophils # (Manual) Basophils # (Manual) PT INR APTT ABG pH ABG pO2 ABG HCO3 ABG O2 Saturation ABG Base Excess ABG Hemoglobin Oxyhemoglobin Sodium 131 L Potassium Chloride 91.2 L Carbon Dioxide BUN 22 H Creatinine 0.3 L Glucose 123 H POC Glucose 147 H Lactic Acid Calcium 10.9 H Ionized Calcium Phosphorus Magnesium Total Bilirubin AST ALT Alkaline Phosphatase Ammonia Total Creatine Kinase CK-MB (CK-2) CK-MB (CK-2) Rel Index Total Protein Albumin Urine WBC (Auto) Vancomycin Trough Salicylates Acetaminophen Plasma/Serum Alcohol Crossmatch 01/24/20 01/24/20 01/25/20 11:47 16:45 00:18 WBC RBC Hgb Hct MCH RDW Plt Count Lymph % (Auto) [place] % (Auto) [place] # Baso # Seg Neutrophils % Seg Neuts % (Manual) Lymphocytes % (Manual) Monocytes % (Manual) Seg Neutrophils # Seg Neutrophils # Man Lymphocytes # (Manual) Monocytes # (Manual) Eosinophils # (Manual) Basophils # (Manual) PT INR APTT ABG pH ABG pO2 ABG HCO3 ABG O2 Saturation ABG Base Excess ABG Hemoglobin Oxyhemoglobin Sodium Potassium Chloride Carbon Dioxide BUN Creatinine Glucose POC Glucose 114 H 108 H 119 H Lactic Acid Calcium Ionized Calcium Phosphorus Magnesium Total Bilirubin AST ALT Alkaline Phosphatase Ammonia Total Creatine Kinase CK-MB (CK-2) CK-MB (CK-2) Rel Index Total Protein Albumin Urine WBC (Auto) Vancomycin Trough Salicylates Acetaminophen Plasma/Serum Alcohol Crossmatch 01/25/20 01/25/20 01/25/20 07:18 11:58 16:56 WBC RBC Hgb Hct MCH RDW Plt Count Lymph % (Auto) [place] % (Auto) [place] # Baso # Seg Neutrophils % Seg Neuts % (Manual) Lymphocytes % (Manual) Monocytes % (Manual) Seg Neutrophils # Seg Neutrophils # Man Lymphocytes # (Manual) Monocytes # (Manual) Eosinophils # (Manual) Basophils # (Manual) PT INR APTT ABG pH ABG pO2 ABG HCO3 ABG O2 Saturation ABG Base Excess ABG Hemoglobin Oxyhemoglobin Sodium Potassium Chloride Carbon Dioxide BUN Creatinine Glucose POC Glucose 136 H 136 H 147 H Lactic Acid Calcium Ionized Calcium Phosphorus Magnesium Total Bilirubin AST ALT Alkaline Phosphatase Ammonia Total Creatine Kinase CK-MB (CK-2) CK-MB (CK-2) Rel Index Total Protein Albumin Urine WBC (Auto) Vancomycin Trough Salicylates Acetaminophen Plasma/Serum Alcohol Crossmatch 01/26/20 01/26/20 01/26/20 00:29 05:59 05:59 WBC 12.8 H RBC Hgb Hct MCH RDW 16.4 H Plt Count 743 H Lymph % (Auto) [place] % (Auto) [place] # 0.9 H Baso # Seg Neutrophils % 76.2 H Seg Neuts % (Manual) Lymphocytes % (Manual) Monocytes % (Manual) Seg Neutrophils # 9.8 H Seg Neutrophils # Man Lymphocytes # (Manual) Monocytes # (Manual) Eosinophils # (Manual) Basophils # (Manual) PT INR APTT ABG pH ABG pO2 ABG HCO3 ABG O2 Saturation ABG Base Excess ABG Hemoglobin Oxyhemoglobin Sodium 132 L Potassium Chloride 90.9 L Carbon Dioxide BUN 23 H Creatinine 0.4 L Glucose 122 H POC Glucose 107 H Lactic Acid Calcium 11.0 H Ionized Calcium Phosphorus Magnesium Total Bilirubin AST ALT Alkaline Phosphatase Ammonia Total Creatine Kinase CK-MB (CK-2) CK-MB (CK-2) Rel Index Total Protein Albumin Urine WBC (Auto) Vancomycin Trough Salicylates Acetaminophen Plasma/Serum Alcohol Crossmatch 01/26/20 01/26/20 01/26/20 06:27 12:06 16:49 WBC RBC Hgb Hct MCH RDW Plt Count Lymph % (Auto) [place] % (Auto) [place] # Baso # Seg Neutrophils % Seg Neuts % (Manual) Lymphocytes % (Manual) Monocytes % (Manual) Seg Neutrophils # Seg Neutrophils # Man Lymphocytes # (Manual) Monocytes # (Manual) Eosinophils # (Manual) Basophils # (Manual) PT INR APTT ABG pH ABG pO2 ABG HCO3 ABG O2 Saturation ABG Base Excess ABG Hemoglobin Oxyhemoglobin Sodium Potassium Chloride Carbon Dioxide BUN Creatinine Glucose POC Glucose 132 H 132 H 110 H Lactic Acid Calcium Ionized Calcium Phosphorus Magnesium Total Bilirubin AST ALT Alkaline Phosphatase Ammonia Total Creatine Kinase CK-MB (CK-2) CK-MB (CK-2) Rel Index Total Protein Albumin Urine WBC (Auto) Vancomycin Trough Salicylates Acetaminophen Plasma/Serum Alcohol Crossmatch 01/27/20 01/27/20 01/27/20 00:08 11:49 16:24 WBC RBC Hgb Hct MCH RDW Plt Count Lymph % (Auto) [place] % (Auto) [place] # Baso # Seg Neutrophils % Seg Neuts % (Manual) Lymphocytes % (Manual) Monocytes % (Manual) Seg Neutrophils # Seg Neutrophils # Man Lymphocytes # (Manual) Monocytes # (Manual) Eosinophils # (Manual) Basophils # (Manual) PT INR APTT ABG pH ABG pO2 ABG HCO3 ABG O2 Saturation ABG Base Excess ABG Hemoglobin Oxyhemoglobin Sodium Potassium Chloride Carbon Dioxide BUN Creatinine Glucose POC Glucose 107 H 119 H 129 H Lactic Acid Calcium Ionized Calcium Phosphorus Magnesium Total Bilirubin AST ALT Alkaline Phosphatase Ammonia Total Creatine Kinase CK-MB (CK-2) CK-MB (CK-2) Rel Index Total Protein Albumin Urine WBC (Auto) Vancomycin Trough Salicylates Acetaminophen Plasma/Serum Alcohol Crossmatch 01/27/20 01/28/20 01/28/20 18:28 01:00 06:22 WBC RBC Hgb Hct MCH RDW Plt Count Lymph % (Auto) [place] % (Auto) [place] # Baso # Seg Neutrophils % Seg Neuts % (Manual) Lymphocytes % (Manual) Monocytes % (Manual) Seg Neutrophils # Seg Neutrophils # Man Lymphocytes # (Manual) Monocytes # (Manual) Eosinophils # (Manual) Basophils # (Manual) PT INR APTT ABG pH ABG pO2 ABG HCO3 ABG O2 Saturation ABG Base Excess ABG Hemoglobin Oxyhemoglobin Sodium Potassium Chloride Carbon Dioxide BUN Creatinine Glucose POC Glucose 126 H 121 H 114 H Lactic Acid Calcium Ionized Calcium Phosphorus Magnesium Total Bilirubin AST ALT Alkaline Phosphatase Ammonia Total Creatine Kinase CK-MB (CK-2) CK-MB (CK-2) Rel Index Total Protein Albumin Urine WBC (Auto) Vancomycin Trough Salicylates Acetaminophen Plasma/Serum Alcohol Crossmatch 01/28/20 01/28/20 01/29/20 11:47 18:00 00:05 WBC RBC Hgb Hct MCH RDW Plt Count Lymph % (Auto) [place] % (Auto) [place] # Baso # Seg Neutrophils % Seg Neuts % (Manual) Lymphocytes % (Manual) Monocytes % (Manual) Seg Neutrophils # Seg Neutrophils # Man Lymphocytes # (Manual) Monocytes # (Manual) Eosinophils # (Manual) Basophils # (Manual) PT INR APTT ABG pH ABG pO2 ABG HCO3 ABG O2 Saturation ABG Base Excess ABG Hemoglobin Oxyhemoglobin Sodium Potassium Chloride Carbon Dioxide BUN Creatinine Glucose POC Glucose 106 H 117 H 127 H Lactic Acid Calcium Ionized Calcium Phosphorus Magnesium Total Bilirubin AST ALT Alkaline Phosphatase Ammonia Total Creatine Kinase CK-MB (CK-2) CK-MB (CK-2) Rel Index Total Protein Albumin Urine WBC (Auto) Vancomycin Trough Salicylates Acetaminophen Plasma/Serum Alcohol Crossmatch 01/29/20 01/29/20 01/29/20 06:04 11:40 16:38 WBC RBC Hgb Hct MCH RDW Plt Count Lymph % (Auto) [place] % (Auto) [place] # Baso # Seg Neutrophils % Seg Neuts % (Manual) Lymphocytes % (Manual) Monocytes % (Manual) Seg Neutrophils # Seg Neutrophils # Man Lymphocytes # (Manual) Monocytes # (Manual) Eosinophils # (Manual) Basophils # (Manual) PT INR APTT ABG pH ABG pO2 ABG HCO3 ABG O2 Saturation ABG Base Excess ABG Hemoglobin Oxyhemoglobin Sodium Potassium Chloride Carbon Dioxide BUN Creatinine Glucose POC Glucose 147 H 139 H 143 H Lactic Acid Calcium Ionized Calcium Phosphorus Magnesium Total Bilirubin AST ALT Alkaline Phosphatase Ammonia Total Creatine Kinase CK-MB (CK-2) CK-MB (CK-2) Rel Index Total Protein Albumin Urine WBC (Auto) Vancomycin Trough Salicylates Acetaminophen Plasma/Serum Alcohol Crossmatch 01/29/20 01/30/20 01/30/20 23:46 06:43 12:07 WBC RBC Hgb Hct MCH RDW Plt Count Lymph % (Auto) [place] % (Auto) [place] # Baso # Seg Neutrophils % Seg Neuts % (Manual) Lymphocytes % (Manual) Monocytes % (Manual) Seg Neutrophils # Seg Neutrophils # Man Lymphocytes # (Manual) Monocytes # (Manual) Eosinophils # (Manual) Basophils # (Manual) PT INR APTT ABG pH ABG pO2 ABG HCO3 ABG O2 Saturation ABG Base Excess ABG Hemoglobin Oxyhemoglobin Sodium Potassium Chloride Carbon Dioxide BUN Creatinine Glucose POC Glucose 122 H 122 H 134 H Lactic Acid Calcium Ionized Calcium Phosphorus Magnesium Total Bilirubin AST ALT Alkaline Phosphatase Ammonia Total Creatine Kinase CK-MB (CK-2) CK-MB (CK-2) Rel Index Total Protein Albumin Urine WBC (Auto) Vancomycin Trough Salicylates Acetaminophen Plasma/Serum Alcohol Crossmatch 01/30/20 01/31/20 01/31/20 17:59 00:52 05:54 WBC RBC Hgb Hct MCH RDW Plt Count Lymph % (Auto) [place] % (Auto) [place] # Baso # Seg Neutrophils % Seg Neuts % (Manual) Lymphocytes % (Manual) Monocytes % (Manual) Seg Neutrophils # Seg Neutrophils # Man Lymphocytes # (Manual) Monocytes # (Manual) Eosinophils # (Manual) Basophils # (Manual) PT INR APTT ABG pH ABG pO2 ABG HCO3 ABG O2 Saturation ABG Base Excess ABG Hemoglobin Oxyhemoglobin Sodium Potassium Chloride Carbon Dioxide BUN Creatinine Glucose POC Glucose 116 H 127 H 127 H Lactic Acid Calcium Ionized Calcium Phosphorus Magnesium Total Bilirubin AST ALT Alkaline Phosphatase Ammonia Total Creatine Kinase CK-MB (CK-2) CK-MB (CK-2) Rel Index Total Protein Albumin Urine WBC (Auto) Vancomycin Trough Salicylates Acetaminophen Plasma/Serum Alcohol Crossmatch 01/31/20 02/01/20 02/01/20 12:20 00:48 12:21 WBC RBC Hgb Hct MCH RDW Plt Count Lymph % (Auto) [place] % (Auto) [place] # Baso # Seg Neutrophils % Seg Neuts % (Manual) Lymphocytes % (Manual) Monocytes % (Manual) Seg Neutrophils # Seg Neutrophils # Man Lymphocytes # (Manual) Monocytes # (Manual) Eosinophils # (Manual) Basophils # (Manual) PT INR APTT ABG pH ABG pO2 ABG HCO3 ABG O2 Saturation ABG Base Excess ABG Hemoglobin Oxyhemoglobin Sodium Potassium Chloride Carbon Dioxide BUN Creatinine Glucose POC Glucose 126 H 154 H 123 H Lactic Acid Calcium Ionized Calcium Phosphorus Magnesium Total Bilirubin AST ALT Alkaline Phosphatase Ammonia Total Creatine Kinase CK-MB (CK-2) CK-MB (CK-2) Rel Index Total Protein Albumin Urine WBC (Auto) Vancomycin Trough Salicylates Acetaminophen Plasma/Serum Alcohol Crossmatch 02/01/20 02/02/20 02/02/20 23:58 06:08 11:50 WBC RBC Hgb Hct MCH RDW Plt Count Lymph % (Auto) [place] % (Auto) [place] # Baso # Seg Neutrophils % Seg Neuts % (Manual) Lymphocytes % (Manual) Monocytes % (Manual) Seg Neutrophils # Seg Neutrophils # Man Lymphocytes # (Manual) Monocytes # (Manual) Eosinophils # (Manual) Basophils # (Manual) PT INR APTT ABG pH ABG pO2 ABG HCO3 ABG O2 Saturation ABG Base Excess ABG Hemoglobin Oxyhemoglobin Sodium Potassium Chloride Carbon Dioxide BUN Creatinine Glucose POC Glucose 125 H 144 H 131 H Lactic Acid Calcium Ionized Calcium Phosphorus Magnesium Total Bilirubin AST ALT Alkaline Phosphatase Ammonia Total Creatine Kinase CK-MB (CK-2) CK-MB (CK-2) Rel Index Total Protein Albumin Urine WBC (Auto) Vancomycin Trough Salicylates Acetaminophen Plasma/Serum Alcohol Crossmatch 02/02/20 02/03/20 02/03/20 17:53 00:14 05:47 WBC RBC Hgb Hct MCH RDW Plt Count Lymph % (Auto) [place] % (Auto) [place] # Baso # Seg Neutrophils % Seg Neuts % (Manual) Lymphocytes % (Manual) Monocytes % (Manual) Seg Neutrophils # Seg Neutrophils # Man Lymphocytes # (Manual) Monocytes # (Manual) Eosinophils # (Manual) Basophils # (Manual) PT INR APTT ABG pH ABG pO2 ABG HCO3 ABG O2 Saturation ABG Base Excess ABG Hemoglobin Oxyhemoglobin Sodium Potassium Chloride Carbon Dioxide BUN Creatinine Glucose POC Glucose 108 H 122 H 118 H Lactic Acid Calcium Ionized Calcium Phosphorus Magnesium Total Bilirubin AST ALT Alkaline Phosphatase Ammonia Total Creatine Kinase CK-MB (CK-2) CK-MB (CK-2) Rel Index Total Protein Albumin Urine WBC (Auto) Vancomycin Trough Salicylates Acetaminophen Plasma/Serum Alcohol Crossmatch 02/03/20 02/03/20 02/03/20 05:59 05:59 11:49 WBC RBC 3.48 L Hgb Hct 29.9 L MCH RDW 16.2 H Plt Count 707 H Lymph % (Auto) [place] % (Auto) 9.3 H [place] # 0.9 H Baso # Seg Neutrophils % Seg Neuts % (Manual) Lymphocytes % (Manual) Monocytes % (Manual) Seg Neutrophils # Seg Neutrophils # Man Lymphocytes # (Manual) Monocytes # (Manual) Eosinophils # (Manual) Basophils # (Manual) PT INR APTT ABG pH ABG pO2 ABG HCO3 ABG O2 Saturation ABG Base Excess ABG Hemoglobin Oxyhemoglobin Sodium 136 L Potassium Chloride 93.4 L Carbon Dioxide BUN 20 H Creatinine 0.5 L Glucose 101 H POC Glucose 133 H Lactic Acid Calcium 10.8 H Ionized Calcium Phosphorus Magnesium Total Bilirubin AST ALT Alkaline Phosphatase Ammonia Total Creatine Kinase CK-MB (CK-2) CK-MB (CK-2) Rel Index Total Protein Albumin Urine WBC (Auto) Vancomycin Trough Salicylates Acetaminophen Plasma/Serum Alcohol Crossmatch 02/03/20 02/04/20 02/04/20 23:19 05:37 23:56 WBC RBC Hgb Hct MCH RDW Plt Count Lymph % (Auto) [place] % (Auto) [place] # Baso # Seg Neutrophils % Seg Neuts % (Manual) Lymphocytes % (Manual) Monocytes % (Manual) Seg Neutrophils # Seg Neutrophils # Man Lymphocytes # (Manual) Monocytes # (Manual) Eosinophils # (Manual) Basophils # (Manual) PT INR APTT ABG pH ABG pO2 ABG HCO3 ABG O2 Saturation ABG Base Excess ABG Hemoglobin Oxyhemoglobin Sodium Potassium Chloride Carbon Dioxide BUN Creatinine Glucose POC Glucose 135 H 108 H 158 H Lactic Acid Calcium Ionized Calcium Phosphorus Magnesium Total Bilirubin AST ALT Alkaline Phosphatase Ammonia Total Creatine Kinase CK-MB (CK-2) CK-MB (CK-2) Rel Index Total Protein Albumin Urine WBC (Auto) Vancomycin Trough Salicylates Acetaminophen Plasma/Serum Alcohol Crossmatch 02/05/20 02/05/20 02/06/20 05:33 23:24 05:50 WBC RBC Hgb Hct MCH RDW Plt Count Lymph % (Auto) [place] % (Auto) [place] # Baso # Seg Neutrophils % Seg Neuts % (Manual) Lymphocytes % (Manual) Monocytes % (Manual) Seg Neutrophils # Seg Neutrophils # Man Lymphocytes # (Manual) Monocytes # (Manual) Eosinophils # (Manual) Basophils # (Manual) PT INR APTT ABG pH ABG pO2 ABG HCO3 ABG O2 Saturation ABG Base Excess ABG Hemoglobin Oxyhemoglobin Sodium Potassium Chloride Carbon Dioxide BUN Creatinine Glucose POC Glucose 152 H 158 H 110 H Lactic Acid Calcium Ionized Calcium Phosphorus Magnesium Total Bilirubin AST ALT Alkaline Phosphatase Ammonia Total Creatine Kinase CK-MB (CK-2) CK-MB (CK-2) Rel Index Total Protein Albumin Urine WBC (Auto) Vancomycin Trough Salicylates Acetaminophen Plasma/Serum Alcohol Crossmatch 02/06/20 02/07/20 02/07/20 16:03 00:13 05:27 WBC RBC Hgb Hct MCH RDW Plt Count Lymph % (Auto) [place] % (Auto) [place] # Baso # Seg Neutrophils % Seg Neuts % (Manual) Lymphocytes % (Manual) Monocytes % (Manual) Seg Neutrophils # Seg Neutrophils # Man Lymphocytes # (Manual) Monocytes # (Manual) Eosinophils # (Manual) Basophils # (Manual) PT INR APTT ABG pH ABG pO2 ABG HCO3 ABG O2 Saturation ABG Base Excess ABG Hemoglobin Oxyhemoglobin Sodium Potassium Chloride Carbon Dioxide BUN Creatinine Glucose POC Glucose 130 H 115 H 115 H Lactic Acid Calcium Ionized Calcium Phosphorus Magnesium Total Bilirubin AST ALT Alkaline Phosphatase Ammonia Total Creatine Kinase CK-MB (CK-2) CK-MB (CK-2) Rel Index Total Protein Albumin Urine WBC (Auto) Vancomycin Trough Salicylates Acetaminophen Plasma/Serum Alcohol Crossmatch 02/07/20 02/07/20 02/08/20 11:42 17:23 00:37 WBC RBC Hgb Hct MCH RDW Plt Count Lymph % (Auto) [place] % (Auto) [place] # Baso # Seg Neutrophils % Seg Neuts % (Manual) Lymphocytes % (Manual) Monocytes % (Manual) Seg Neutrophils # Seg Neutrophils # Man Lymphocytes # (Manual) Monocytes # (Manual) Eosinophils # (Manual) Basophils # (Manual) PT INR APTT ABG pH ABG pO2 ABG HCO3 ABG O2 Saturation ABG Base Excess ABG Hemoglobin Oxyhemoglobin Sodium Potassium Chloride Carbon Dioxide BUN Creatinine Glucose POC Glucose 113 H 114 H 136 H Lactic Acid Calcium Ionized Calcium Phosphorus Magnesium Total Bilirubin AST ALT Alkaline Phosphatase Ammonia Total Creatine Kinase CK-MB (CK-2) CK-MB (CK-2) Rel Index Total Protein Albumin Urine WBC (Auto) Vancomycin Trough Salicylates Acetaminophen Plasma/Serum Alcohol Crossmatch 02/08/20 02/08/20 02/08/20 08:52 11:42 17:02 WBC RBC Hgb Hct MCH RDW Plt Count Lymph % (Auto) [place] % (Auto) [place] # Baso # Seg Neutrophils % Seg Neuts % (Manual) Lymphocytes % (Manual) Monocytes % (Manual) Seg Neutrophils # Seg Neutrophils # Man Lymphocytes # (Manual) Monocytes # (Manual) Eosinophils # (Manual) Basophils # (Manual) PT INR APTT ABG pH ABG pO2 ABG HCO3 ABG O2 Saturation ABG Base Excess ABG Hemoglobin Oxyhemoglobin Sodium 136 L Potassium Chloride 95.7 L Carbon Dioxide BUN 21 H Creatinine 0.4 L Glucose POC Glucose 128 H 145 H Lactic Acid Calcium 10.4 H Ionized Calcium Phosphorus Magnesium Total Bilirubin AST ALT Alkaline Phosphatase Ammonia Total Creatine Kinase CK-MB (CK-2) CK-MB (CK-2) Rel Index Total Protein Albumin Urine WBC (Auto) Vancomycin Trough Salicylates Acetaminophen Plasma/Serum Alcohol Crossmatch 02/09/20 02/09/20 02/09/20 01:05 11:52 16:19 WBC RBC Hgb Hct MCH RDW Plt Count Lymph % (Auto) [place] % (Auto) [place] # Baso # Seg Neutrophils % Seg Neuts % (Manual) Lymphocytes % (Manual) Monocytes % (Manual) Seg Neutrophils # Seg Neutrophils # Man Lymphocytes # (Manual) Monocytes # (Manual) Eosinophils # (Manual) Basophils # (Manual) PT INR APTT ABG pH ABG pO2 ABG HCO3 ABG O2 Saturation ABG Base Excess ABG Hemoglobin Oxyhemoglobin Sodium Potassium Chloride Carbon Dioxide BUN Creatinine Glucose POC Glucose 117 H 141 H 113 H Lactic Acid Calcium Ionized Calcium Phosphorus Magnesium Total Bilirubin AST ALT Alkaline Phosphatase Ammonia Total Creatine Kinase CK-MB (CK-2) CK-MB (CK-2) Rel Index Total Protein Albumin Urine WBC (Auto) Vancomycin Trough Salicylates Acetaminophen Plasma/Serum Alcohol Crossmatch 02/10/20 02/10/20 02/10/20 05:25 12:50 17:08 WBC RBC Hgb Hct MCH RDW Plt Count Lymph % (Auto) [place] % (Auto) [place] # Baso # Seg Neutrophils % Seg Neuts % (Manual) Lymphocytes % (Manual) Monocytes % (Manual) Seg Neutrophils # Seg Neutrophils # Man Lymphocytes # (Manual) Monocytes # (Manual) Eosinophils # (Manual) Basophils # (Manual) PT INR APTT ABG pH ABG pO2 ABG HCO3 ABG O2 Saturation ABG Base Excess ABG Hemoglobin Oxyhemoglobin Sodium Potassium Chloride Carbon Dioxide BUN Creatinine Glucose POC Glucose 136 H 127 H 111 H Lactic Acid Calcium Ionized Calcium Phosphorus Magnesium Total Bilirubin AST ALT Alkaline Phosphatase Ammonia Total Creatine Kinase CK-MB (CK-2) CK-MB (CK-2) Rel Index Total Protein Albumin Urine WBC (Auto) Vancomycin Trough Salicylates Acetaminophen Plasma/Serum Alcohol Crossmatch 02/10/20 02/11/20 02/11/20 23:55 06:11 12:07 WBC RBC Hgb Hct MCH RDW Plt Count Lymph % (Auto) [place] % (Auto) [place] # Baso # Seg Neutrophils % Seg Neuts % (Manual) Lymphocytes % (Manual) Monocytes % (Manual) Seg Neutrophils # Seg Neutrophils # Man Lymphocytes # (Manual) Monocytes # (Manual) Eosinophils # (Manual) Basophils # (Manual) PT INR APTT ABG pH ABG pO2 ABG HCO3 ABG O2 Saturation ABG Base Excess ABG Hemoglobin Oxyhemoglobin Sodium Potassium Chloride Carbon Dioxide BUN Creatinine Glucose POC Glucose 129 H 128 H 141 H Lactic Acid Calcium Ionized Calcium Phosphorus Magnesium Total Bilirubin AST ALT Alkaline Phosphatase Ammonia Total Creatine Kinase CK-MB (CK-2) CK-MB (CK-2) Rel Index Total Protein Albumin Urine WBC (Auto) Vancomycin Trough Salicylates Acetaminophen Plasma/Serum Alcohol Crossmatch 02/11/20 02/12/20 02/13/20 18:22 02:39 06:45 WBC RBC Hgb Hct MCH RDW Plt Count Lymph % (Auto) [place] % (Auto) [place] # Baso # Seg Neutrophils % Seg Neuts % (Manual) Lymphocytes % (Manual) Monocytes % (Manual) Seg Neutrophils # Seg Neutrophils # Man Lymphocytes # (Manual) Monocytes # (Manual) Eosinophils # (Manual) Basophils # (Manual) PT INR APTT ABG pH ABG pO2 ABG HCO3 ABG O2 Saturation ABG Base Excess ABG Hemoglobin Oxyhemoglobin Sodium Potassium Chloride Carbon Dioxide BUN Creatinine Glucose POC Glucose 118 H 107 H 124 H Lactic Acid Calcium Ionized Calcium Phosphorus Magnesium Total Bilirubin AST ALT Alkaline Phosphatase Ammonia Total Creatine Kinase CK-MB (CK-2) CK-MB (CK-2) Rel Index Total Protein Albumin Urine WBC (Auto) Vancomycin Trough Salicylates Acetaminophen Plasma/Serum Alcohol Crossmatch 02/13/20 02/13/20 02/14/20 12:26 18:19 00:21 WBC RBC Hgb Hct MCH RDW Plt Count Lymph % (Auto) [place] % (Auto) [place] # Baso # Seg Neutrophils % Seg Neuts % (Manual) Lymphocytes % (Manual) Monocytes % (Manual) Seg Neutrophils # Seg Neutrophils # Man Lymphocytes # (Manual) Monocytes # (Manual) Eosinophils # (Manual) Basophils # (Manual) PT INR APTT ABG pH ABG pO2 ABG HCO3 ABG O2 Saturation ABG Base Excess ABG Hemoglobin Oxyhemoglobin Sodium Potassium Chloride Carbon Dioxide BUN Creatinine Glucose POC Glucose 124 H 118 H 130 H Lactic Acid Calcium Ionized Calcium Phosphorus Magnesium Total Bilirubin AST ALT Alkaline Phosphatase Ammonia Total Creatine Kinase CK-MB (CK-2) CK-MB (CK-2) Rel Index Total Protein Albumin Urine WBC (Auto) Vancomycin Trough Salicylates Acetaminophen Plasma/Serum Alcohol Crossmatch 02/14/20 02/14/20 02/16/20 11:19 16:16 00:58 WBC RBC Hgb Hct MCH RDW Plt Count Lymph % (Auto) [place] % (Auto) [place] # Baso # Seg Neutrophils % Seg Neuts % (Manual) Lymphocytes % (Manual) Monocytes % (Manual) Seg Neutrophils # Seg Neutrophils # Man Lymphocytes # (Manual) Monocytes # (Manual) Eosinophils # (Manual) Basophils # (Manual) PT INR APTT ABG pH ABG pO2 ABG HCO3 ABG O2 Saturation ABG Base Excess ABG Hemoglobin Oxyhemoglobin Sodium Potassium Chloride Carbon Dioxide BUN Creatinine Glucose POC Glucose 135 H 119 H 121 H Lactic Acid Calcium Ionized Calcium Phosphorus Magnesium Total Bilirubin AST ALT Alkaline Phosphatase Ammonia Total Creatine Kinase CK-MB (CK-2) CK-MB (CK-2) Rel Index Total Protein Albumin Urine WBC (Auto) Vancomycin Trough Salicylates Acetaminophen Plasma/Serum Alcohol Crossmatch 02/16/20 02/16/20 02/16/20 12:12 18:22 23:51 WBC RBC Hgb Hct MCH RDW Plt Count Lymph % (Auto) [place] % (Auto) [place] # Baso # Seg Neutrophils % Seg Neuts % (Manual) Lymphocytes % (Manual) Monocytes % (Manual) Seg Neutrophils # Seg Neutrophils # Man Lymphocytes # (Manual) Monocytes # (Manual) Eosinophils # (Manual) Basophils # (Manual) PT INR APTT ABG pH ABG pO2 ABG HCO3 ABG O2 Saturation ABG Base Excess ABG Hemoglobin Oxyhemoglobin Sodium Potassium Chloride Carbon Dioxide BUN Creatinine Glucose POC Glucose 107 H 106 H 128 H Lactic Acid Calcium Ionized Calcium Phosphorus Magnesium Total Bilirubin AST ALT Alkaline Phosphatase Ammonia Total Creatine Kinase CK-MB (CK-2) CK-MB (CK-2) Rel Index Total Protein Albumin Urine WBC (Auto) Vancomycin Trough Salicylates Acetaminophen Plasma/Serum Alcohol Crossmatch 02/17/20 02/17/20 02/17/20 05:50 07:57 07:57 WBC 12.6 H RBC 3.52 L Hgb Hct MCH RDW 15.3 H Plt Count 643 H Lymph % (Auto) [place] % (Auto) 8.0 H [place] # 1.0 H Baso # Seg Neutrophils % Seg Neuts % (Manual) Lymphocytes % (Manual) Monocytes % (Manual) Seg Neutrophils # 8.5 H Seg Neutrophils # Man Lymphocytes # (Manual) Monocytes # (Manual) Eosinophils # (Manual) Basophils # (Manual) PT INR APTT ABG pH ABG pO2 ABG HCO3 ABG O2 Saturation ABG Base Excess ABG Hemoglobin Oxyhemoglobin Sodium Potassium Chloride 96.9 L Carbon Dioxide BUN 21 H Creatinine 0.4 L Glucose 113 H POC Glucose 116 H Lactic Acid Calcium 10.5 H Ionized Calcium Phosphorus Magnesium Total Bilirubin AST ALT Alkaline Phosphatase Ammonia Total Creatine Kinase CK-MB (CK-2) CK-MB (CK-2) Rel Index Total Protein Albumin Urine WBC (Auto) Vancomycin Trough Salicylates Acetaminophen Plasma/Serum Alcohol Crossmatch 02/17/20 02/17/20 02/18/20 12:05 18:16 00:13 WBC RBC Hgb Hct MCH RDW Plt Count Lymph % (Auto) [place] % (Auto) [place] # Baso # Seg Neutrophils % Seg Neuts % (Manual) Lymphocytes % (Manual) Monocytes % (Manual) Seg Neutrophils # Seg Neutrophils # Man Lymphocytes # (Manual) Monocytes # (Manual) Eosinophils # (Manual) Basophils # (Manual) PT INR APTT ABG pH ABG pO2 ABG HCO3 ABG O2 Saturation ABG Base Excess ABG Hemoglobin Oxyhemoglobin Sodium Potassium Chloride Carbon Dioxide BUN Creatinine Glucose POC Glucose 139 H 127 H 144 H Lactic Acid Calcium Ionized Calcium Phosphorus Magnesium Total Bilirubin AST ALT Alkaline Phosphatase Ammonia Total Creatine Kinase CK-MB (CK-2) CK-MB (CK-2) Rel Index Total Protein Albumin Urine WBC (Auto) Vancomycin Trough Salicylates Acetaminophen Plasma/Serum Alcohol Crossmatch 02/18/20 02/18/20 02/19/20 17:41 23:28 05:17 WBC RBC Hgb Hct MCH RDW Plt Count Lymph % (Auto) [place] % (Auto) [place] # Baso # Seg Neutrophils % Seg Neuts % (Manual) Lymphocytes % (Manual) Monocytes % (Manual) Seg Neutrophils # Seg Neutrophils # Man Lymphocytes # (Manual) Monocytes # (Manual) Eosinophils # (Manual) Basophils # (Manual) PT INR APTT ABG pH ABG pO2 ABG HCO3 ABG O2 Saturation ABG Base Excess ABG Hemoglobin Oxyhemoglobin Sodium Potassium Chloride Carbon Dioxide BUN Creatinine Glucose POC Glucose 118 H 166 H 116 H Lactic Acid Calcium Ionized Calcium Phosphorus Magnesium Total Bilirubin AST ALT Alkaline Phosphatase Ammonia Total Creatine Kinase CK-MB (CK-2) CK-MB (CK-2) Rel Index Total Protein Albumin Urine WBC (Auto) Vancomycin Trough Salicylates Acetaminophen Plasma/Serum Alcohol Crossmatch 02/19/20 02/19/20 02/20/20 12:33 17:02 00:12 WBC RBC Hgb Hct MCH RDW Plt Count Lymph % (Auto) [place] % (Auto) [place] # Baso # Seg Neutrophils % Seg Neuts % (Manual) Lymphocytes % (Manual) Monocytes % (Manual) Seg Neutrophils # Seg Neutrophils # Man Lymphocytes # (Manual) Monocytes # (Manual) Eosinophils # (Manual) Basophils # (Manual) PT INR APTT ABG pH ABG pO2 ABG HCO3 ABG O2 Saturation ABG Base Excess ABG Hemoglobin Oxyhemoglobin Sodium Potassium Chloride Carbon Dioxide BUN Creatinine Glucose POC Glucose 115 H 108 H 153 H Lactic Acid Calcium Ionized Calcium Phosphorus Magnesium Total Bilirubin AST ALT Alkaline Phosphatase Ammonia Total Creatine Kinase CK-MB (CK-2) CK-MB (CK-2) Rel Index Total Protein Albumin Urine WBC (Auto) Vancomycin Trough Salicylates Acetaminophen Plasma/Serum Alcohol Crossmatch 02/20/20 02/20/20 02/21/20 12:00 23:13 05:07 WBC RBC Hgb Hct MCH RDW Plt Count Lymph % (Auto) [place] % (Auto) [place] # Baso # Seg Neutrophils % Seg Neuts % (Manual) Lymphocytes % (Manual) Monocytes % (Manual) Seg Neutrophils # Seg Neutrophils # Man Lymphocytes # (Manual) Monocytes # (Manual) Eosinophils # (Manual) Basophils # (Manual) PT INR APTT ABG pH ABG pO2 ABG HCO3 ABG O2 Saturation ABG Base Excess ABG Hemoglobin Oxyhemoglobin Sodium Potassium Chloride Carbon Dioxide BUN Creatinine Glucose POC Glucose 171 H 129 H 116 H Lactic Acid Calcium Ionized Calcium Phosphorus Magnesium Total Bilirubin AST ALT Alkaline Phosphatase Ammonia Total Creatine Kinase CK-MB (CK-2) CK-MB (CK-2) Rel Index Total Protein Albumin Urine WBC (Auto) Vancomycin Trough Salicylates Acetaminophen Plasma/Serum Alcohol Crossmatch 02/21/20 02/22/20 02/22/20 12:15 00:42 06:30 WBC RBC Hgb Hct MCH RDW Plt Count Lymph % (Auto) [place] % (Auto) [place] # Baso # Seg Neutrophils % Seg Neuts % (Manual) Lymphocytes % (Manual) Monocytes % (Manual) Seg Neutrophils # Seg Neutrophils # Man Lymphocytes # (Manual) Monocytes # (Manual) Eosinophils # (Manual) Basophils # (Manual) PT INR APTT ABG pH ABG pO2 ABG HCO3 ABG O2 Saturation ABG Base Excess ABG Hemoglobin Oxyhemoglobin Sodium Potassium Chloride Carbon Dioxide BUN Creatinine Glucose POC Glucose 124 H 142 H 117 H Lactic Acid Calcium Ionized Calcium Phosphorus Magnesium Total Bilirubin AST ALT Alkaline Phosphatase Ammonia Total Creatine Kinase CK-MB (CK-2) CK-MB (CK-2) Rel Index Total Protein Albumin Urine WBC (Auto) Vancomycin Trough Salicylates Acetaminophen Plasma/Serum Alcohol Crossmatch 02/22/20 02/22/20 02/23/20 12:20 17:55 12:46 WBC RBC Hgb Hct MCH RDW Plt Count Lymph % (Auto) [place] % (Auto) [place] # Baso # Seg Neutrophils % Seg Neuts % (Manual) Lymphocytes % (Manual) Monocytes % (Manual) Seg Neutrophils # Seg Neutrophils # Man Lymphocytes # (Manual) Monocytes # (Manual) Eosinophils # (Manual) Basophils # (Manual) PT INR APTT ABG pH ABG pO2 ABG HCO3 ABG O2 Saturation ABG Base Excess ABG Hemoglobin Oxyhemoglobin Sodium Potassium Chloride Carbon Dioxide BUN Creatinine Glucose POC Glucose 121 H 157 H 112 H Lactic Acid Calcium Ionized Calcium Phosphorus Magnesium Total Bilirubin AST ALT Alkaline Phosphatase Ammonia Total Creatine Kinase CK-MB (CK-2) CK-MB (CK-2) Rel Index Total Protein Albumin Urine WBC (Auto) Vancomycin Trough Salicylates Acetaminophen Plasma/Serum Alcohol Crossmatch 02/23/20 02/24/20 02/24/20 16:47 00:38 07:00 WBC RBC Hgb Hct MCH RDW Plt Count Lymph % (Auto) [place] % (Auto) [place] # Baso # Seg Neutrophils % Seg Neuts % (Manual) Lymphocytes % (Manual) Monocytes % (Manual) Seg Neutrophils # Seg Neutrophils # Man Lymphocytes # (Manual) Monocytes # (Manual) Eosinophils # (Manual) Basophils # (Manual) PT INR APTT ABG pH ABG pO2 ABG HCO3 ABG O2 Saturation ABG Base Excess ABG Hemoglobin Oxyhemoglobin Sodium Potassium Chloride Carbon Dioxide BUN Creatinine Glucose POC Glucose 142 H 138 H 118 H Lactic Acid Calcium Ionized Calcium Phosphorus Magnesium Total Bilirubin AST ALT Alkaline Phosphatase Ammonia Total Creatine Kinase CK-MB (CK-2) CK-MB (CK-2) Rel Index Total Protein Albumin Urine WBC (Auto) Vancomycin Trough Salicylates Acetaminophen Plasma/Serum Alcohol Crossmatch 02/24/20 02/24/20 02/25/20 11:41 18:33 18:24 WBC RBC Hgb Hct MCH RDW Plt Count Lymph % (Auto) [place] % (Auto) [place] # Baso # Seg Neutrophils % Seg Neuts % (Manual) Lymphocytes % (Manual) Monocytes % (Manual) Seg Neutrophils # Seg Neutrophils # Man Lymphocytes # (Manual) Monocytes # (Manual) Eosinophils # (Manual) Basophils # (Manual) PT INR APTT ABG pH ABG pO2 ABG HCO3 ABG O2 Saturation ABG Base Excess ABG Hemoglobin Oxyhemoglobin Sodium Potassium Chloride Carbon Dioxide BUN Creatinine Glucose POC Glucose 152 H 126 H 120 H Lactic Acid Calcium Ionized Calcium Phosphorus Magnesium Total Bilirubin AST ALT Alkaline Phosphatase Ammonia Total Creatine Kinase CK-MB (CK-2) CK-MB (CK-2) Rel Index Total Protein Albumin Urine WBC (Auto) Vancomycin Trough Salicylates Acetaminophen Plasma/Serum Alcohol Crossmatch 02/25/20 02/26/20 02/26/20 23:40 05:46 11:32 WBC RBC Hgb Hct MCH RDW Plt Count Lymph % (Auto) [place] % (Auto) [place] # Baso # Seg Neutrophils % Seg Neuts % (Manual) Lymphocytes % (Manual) Monocytes % (Manual) Seg Neutrophils # Seg Neutrophils # Man Lymphocytes # (Manual) Monocytes # (Manual) Eosinophils # (Manual) Basophils # (Manual) PT INR APTT ABG pH ABG pO2 ABG HCO3 ABG O2 Saturation ABG Base Excess ABG Hemoglobin Oxyhemoglobin Sodium Potassium Chloride Carbon Dioxide BUN Creatinine Glucose POC Glucose 114 H 113 H 106 H Lactic Acid Calcium Ionized Calcium Phosphorus Magnesium Total Bilirubin AST ALT Alkaline Phosphatase Ammonia Total Creatine Kinase CK-MB (CK-2) CK-MB (CK-2) Rel Index Total Protein Albumin Urine WBC (Auto) Vancomycin Trough Salicylates Acetaminophen Plasma/Serum Alcohol Crossmatch 02/26/20 02/27/20 02/27/20 16:14 11:53 17:54 WBC RBC Hgb Hct MCH RDW Plt Count Lymph % (Auto) [place] % (Auto) [place] # Baso # Seg Neutrophils % Seg Neuts % (Manual) Lymphocytes % (Manual) Monocytes % (Manual) Seg Neutrophils # Seg Neutrophils # Man Lymphocytes # (Manual) Monocytes # (Manual) Eosinophils # (Manual) Basophils # (Manual) PT INR APTT ABG pH ABG pO2 ABG HCO3 ABG O2 Saturation ABG Base Excess ABG Hemoglobin Oxyhemoglobin Sodium Potassium Chloride Carbon Dioxide BUN Creatinine Glucose POC Glucose 123 H 134 H 119 H Lactic Acid Calcium Ionized Calcium Phosphorus Magnesium Total Bilirubin AST ALT Alkaline Phosphatase Ammonia Total Creatine Kinase CK-MB (CK-2) CK-MB (CK-2) Rel Index Total Protein Albumin Urine WBC (Auto) Vancomycin Trough Salicylates Acetaminophen Plasma/Serum Alcohol Crossmatch 02/27/20 02/28/20 02/28/20 23:51 03:40 03:40 WBC RBC 3.58 L Hgb Hct MCH RDW Plt Count 575 H Lymph % (Auto) [place] % (Auto) 9.4 H [place] # 1.0 H Baso # Seg Neutrophils % Seg Neuts % (Manual) Lymphocytes % (Manual) Monocytes % (Manual) Seg Neutrophils # Seg Neutrophils # Man Lymphocytes # (Manual) Monocytes # (Manual) Eosinophils # (Manual) Basophils # (Manual) PT INR APTT ABG pH ABG pO2 ABG HCO3 ABG O2 Saturation ABG Base Excess ABG Hemoglobin Oxyhemoglobin Sodium Potassium Chloride Carbon Dioxide BUN 23 H Creatinine 0.5 L Glucose 114 H POC Glucose 138 H Lactic Acid Calcium Ionized Calcium Phosphorus Magnesium Total Bilirubin AST ALT Alkaline Phosphatase Ammonia Total Creatine Kinase CK-MB (CK-2) CK-MB (CK-2) Rel Index Total Protein Albumin Urine WBC (Auto) Vancomycin Trough Salicylates Acetaminophen Plasma/Serum Alcohol Crossmatch 02/28/20 02/28/20 02/29/20 12:37 18:38 05:50 WBC RBC Hgb Hct MCH RDW Plt Count Lymph % (Auto) [place] % (Auto) [place] # Baso # Seg Neutrophils % Seg Neuts % (Manual) Lymphocytes % (Manual) Monocytes % (Manual) Seg Neutrophils # Seg Neutrophils # Man Lymphocytes # (Manual) Monocytes # (Manual) Eosinophils # (Manual) Basophils # (Manual) PT INR APTT ABG pH ABG pO2 ABG HCO3 ABG O2 Saturation ABG Base Excess ABG Hemoglobin Oxyhemoglobin Sodium Potassium Chloride Carbon Dioxide BUN Creatinine Glucose POC Glucose 115 H 120 H 114 H Lactic Acid Calcium Ionized Calcium Phosphorus Magnesium Total Bilirubin AST ALT Alkaline Phosphatase Ammonia Total Creatine Kinase CK-MB (CK-2) CK-MB (CK-2) Rel Index Total Protein Albumin Urine WBC (Auto) Vancomycin Trough Salicylates Acetaminophen Plasma/Serum Alcohol Crossmatch 02/29/20 02/29/20 03/01/20 18:53 23:10 06:53 WBC RBC Hgb Hct MCH RDW Plt Count Lymph % (Auto) [place] % (Auto) [place] # Baso # Seg Neutrophils % Seg Neuts % (Manual) Lymphocytes % (Manual) Monocytes % (Manual) Seg Neutrophils # Seg Neutrophils # Man Lymphocytes # (Manual) Monocytes # (Manual) Eosinophils # (Manual) Basophils # (Manual) PT INR APTT ABG pH ABG pO2 ABG HCO3 ABG O2 Saturation ABG Base Excess ABG Hemoglobin Oxyhemoglobin Sodium Potassium Chloride Carbon Dioxide BUN Creatinine Glucose POC Glucose 112 H 147 H 131 H Lactic Acid Calcium Ionized Calcium Phosphorus Magnesium Total Bilirubin AST ALT Alkaline Phosphatase Ammonia Total Creatine Kinase CK-MB (CK-2) CK-MB (CK-2) Rel Index Total Protein Albumin Urine WBC (Auto) Vancomycin Trough Salicylates Acetaminophen Plasma/Serum Alcohol Crossmatch 03/01/20 03/01/20 03/02/20 17:31 18:35 00:10 WBC RBC Hgb Hct MCH RDW Plt Count Lymph % (Auto) [place] % (Auto) [place] # Baso # Seg Neutrophils % Seg Neuts % (Manual) Lymphocytes % (Manual) Monocytes % (Manual) Seg Neutrophils # Seg Neutrophils # Man Lymphocytes # (Manual) Monocytes # (Manual) Eosinophils # (Manual) Basophils # (Manual) PT INR APTT ABG pH ABG pO2 ABG HCO3 ABG O2 Saturation ABG Base Excess ABG Hemoglobin Oxyhemoglobin Sodium Potassium Chloride Carbon Dioxide BUN Creatinine Glucose POC Glucose 61 L 129 H 117 H Lactic Acid Calcium Ionized Calcium Phosphorus Magnesium Total Bilirubin AST ALT Alkaline Phosphatase Ammonia Total Creatine Kinase CK-MB (CK-2) CK-MB (CK-2) Rel Index Total Protein Albumin Urine WBC (Auto) Vancomycin Trough Salicylates Acetaminophen Plasma/Serum Alcohol Crossmatch 03/02/20 03/02/20 03/02/20 06:56 12:02 18:42 WBC RBC Hgb Hct MCH RDW Plt Count Lymph % (Auto) [place] % (Auto) [place] # Baso # Seg Neutrophils % Seg Neuts % (Manual) Lymphocytes % (Manual) Monocytes % (Manual) Seg Neutrophils # Seg Neutrophils # Man Lymphocytes # (Manual) Monocytes # (Manual) Eosinophils # (Manual) Basophils # (Manual) PT INR APTT ABG pH ABG pO2 ABG HCO3 ABG O2 Saturation ABG Base Excess ABG Hemoglobin Oxyhemoglobin Sodium Potassium Chloride Carbon Dioxide BUN Creatinine Glucose POC Glucose 125 H 111 H 126 H Lactic Acid Calcium Ionized Calcium Phosphorus Magnesium Total Bilirubin AST ALT Alkaline Phosphatase Ammonia Total Creatine Kinase CK-MB (CK-2) CK-MB (CK-2) Rel Index Total Protein Albumin Urine WBC (Auto) Vancomycin Trough Salicylates Acetaminophen Plasma/Serum Alcohol Crossmatch 03/03/20 03/03/20 03/03/20 00:18 06:11 11:50 WBC RBC Hgb Hct MCH RDW Plt Count Lymph % (Auto) [place] % (Auto) [place] # Baso # Seg Neutrophils % Seg Neuts % (Manual) Lymphocytes % (Manual) Monocytes % (Manual) Seg Neutrophils # Seg Neutrophils # Man Lymphocytes # (Manual) Monocytes # (Manual) Eosinophils # (Manual) Basophils # (Manual) PT INR APTT ABG pH ABG pO2 ABG HCO3 ABG O2 Saturation ABG Base Excess ABG Hemoglobin Oxyhemoglobin Sodium Potassium Chloride Carbon Dioxide BUN Creatinine Glucose POC Glucose 139 H 155 H 118 H Lactic Acid Calcium Ionized Calcium Phosphorus Magnesium Total Bilirubin AST ALT Alkaline Phosphatase Ammonia Total Creatine Kinase CK-MB (CK-2) CK-MB (CK-2) Rel Index Total Protein Albumin Urine WBC (Auto) Vancomycin Trough Salicylates Acetaminophen Plasma/Serum Alcohol Crossmatch 03/03/20 03/03/20 03/04/20 18:09 23:46 05:37 WBC RBC Hgb Hct MCH RDW Plt Count Lymph % (Auto) [place] % (Auto) [place] # Baso # Seg Neutrophils % Seg Neuts % (Manual) Lymphocytes % (Manual) Monocytes % (Manual) Seg Neutrophils # Seg Neutrophils # Man Lymphocytes # (Manual) Monocytes # (Manual) Eosinophils # (Manual) Basophils # (Manual) PT INR APTT ABG pH ABG pO2 ABG HCO3 ABG O2 Saturation ABG Base Excess ABG Hemoglobin Oxyhemoglobin Sodium Potassium Chloride Carbon Dioxide BUN Creatinine Glucose POC Glucose 109 H 132 H 111 H Lactic Acid Calcium Ionized Calcium Phosphorus Magnesium Total Bilirubin AST ALT Alkaline Phosphatase Ammonia Total Creatine Kinase CK-MB (CK-2) CK-MB (CK-2) Rel Index Total Protein Albumin Urine WBC (Auto) Vancomycin Trough Salicylates Acetaminophen Plasma/Serum Alcohol Crossmatch 03/04/20 03/04/20 03/05/20 11:38 17:54 00:14 WBC RBC Hgb Hct MCH RDW Plt Count Lymph % (Auto) [place] % (Auto) [place] # Baso # Seg Neutrophils % Seg Neuts % (Manual) Lymphocytes % (Manual) Monocytes % (Manual) Seg Neutrophils # Seg Neutrophils # Man Lymphocytes # (Manual) Monocytes # (Manual) Eosinophils # (Manual) Basophils # (Manual) PT INR APTT ABG pH ABG pO2 ABG HCO3 ABG O2 Saturation ABG Base Excess ABG Hemoglobin Oxyhemoglobin Sodium Potassium Chloride Carbon Dioxide BUN Creatinine Glucose POC Glucose 138 H 118 H 134 H Lactic Acid Calcium Ionized Calcium Phosphorus Magnesium Total Bilirubin AST ALT Alkaline Phosphatase Ammonia Total Creatine Kinase CK-MB (CK-2) CK-MB (CK-2) Rel Index Total Protein Albumin Urine WBC (Auto) Vancomycin Trough Salicylates Acetaminophen Plasma/Serum Alcohol Crossmatch 03/06/20 03/06/20 03/06/20 03:37 03:37 06:29 WBC RBC Hgb Hct MCH RDW Plt Count 550 H Lymph % (Auto) [place] % (Auto) 9.1 H [place] # Baso # Seg Neutrophils % Seg Neuts % (Manual) Lymphocytes % (Manual) Monocytes % (Manual) Seg Neutrophils # Seg Neutrophils # Man Lymphocytes # (Manual) Monocytes # (Manual) Eosinophils # (Manual) Basophils # (Manual) PT INR APTT ABG pH ABG pO2 ABG HCO3 ABG O2 Saturation ABG Base Excess ABG Hemoglobin Oxyhemoglobin Sodium Potassium Chloride Carbon Dioxide BUN 26 H Creatinine 0.5 L Glucose POC Glucose 128 H Lactic Acid Calcium 10.4 H Ionized Calcium Phosphorus Magnesium Total Bilirubin AST ALT Alkaline Phosphatase Ammonia Total Creatine Kinase CK-MB (CK-2) CK-MB (CK-2) Rel Index Total Protein Albumin Urine WBC (Auto) Vancomycin Trough Salicylates Acetaminophen Plasma/Serum Alcohol Crossmatch 03/06/20 03/07/20 03/07/20 17:47 06:37 12:37 WBC RBC Hgb Hct MCH RDW Plt Count Lymph % (Auto) [place] % (Auto) [place] # Baso # Seg Neutrophils % Seg Neuts % (Manual) Lymphocytes % (Manual) Monocytes % (Manual) Seg Neutrophils # Seg Neutrophils # Man Lymphocytes # (Manual) Monocytes # (Manual) Eosinophils # (Manual) Basophils # (Manual) PT INR APTT ABG pH ABG pO2 ABG HCO3 ABG O2 Saturation ABG Base Excess ABG Hemoglobin Oxyhemoglobin Sodium Potassium Chloride Carbon Dioxide BUN Creatinine Glucose POC Glucose 120 H 113 H 118 H Lactic Acid Calcium Ionized Calcium Phosphorus Magnesium Total Bilirubin AST ALT Alkaline Phosphatase Ammonia Total Creatine Kinase CK-MB (CK-2) CK-MB (CK-2) Rel Index Total Protein Albumin Urine WBC (Auto) Vancomycin Trough Salicylates Acetaminophen Plasma/Serum Alcohol Crossmatch 03/07/20 03/08/20 03/08/20 16:41 00:55 06:25 WBC RBC Hgb Hct MCH RDW Plt Count Lymph % (Auto) [place] % (Auto) [place] # Baso # Seg Neutrophils % Seg Neuts % (Manual) Lymphocytes % (Manual) Monocytes % (Manual) Seg Neutrophils # Seg Neutrophils # Man Lymphocytes # (Manual) Monocytes # (Manual) Eosinophils # (Manual) Basophils # (Manual) PT INR APTT ABG pH ABG pO2 ABG HCO3 ABG O2 Saturation ABG Base Excess ABG Hemoglobin Oxyhemoglobin Sodium Potassium Chloride Carbon Dioxide BUN Creatinine Glucose POC Glucose 108 H 139 H 127 H Lactic Acid Calcium Ionized Calcium Phosphorus Magnesium Total Bilirubin AST ALT Alkaline Phosphatase Ammonia Total Creatine Kinase CK-MB (CK-2) CK-MB (CK-2) Rel Index Total Protein Albumin Urine WBC (Auto) Vancomycin Trough Salicylates Acetaminophen Plasma/Serum Alcohol Crossmatch 03/08/20 03/08/20 03/08/20 12:49 13:25 17:13 WBC RBC Hgb Hct MCH RDW Plt Count Lymph % (Auto) [place] % (Auto) [place] # Baso # Seg Neutrophils % Seg Neuts % (Manual) Lymphocytes % (Manual) Monocytes % (Manual) Seg Neutrophils # Seg Neutrophils # Man Lymphocytes # (Manual) Monocytes # (Manual) Eosinophils # (Manual) Basophils # (Manual) PT INR APTT ABG pH ABG pO2 71.1 L ABG HCO3 26.2 H ABG O2 Saturation ABG Base Excess ABG Hemoglobin 8.2 L Oxyhemoglobin 94.8 L Sodium Potassium Chloride Carbon Dioxide BUN Creatinine Glucose POC Glucose 127 H 147 H Lactic Acid Calcium Ionized Calcium Phosphorus Magnesium Total Bilirubin AST ALT Alkaline Phosphatase Ammonia Total Creatine Kinase CK-MB (CK-2) CK-MB (CK-2) Rel Index Total Protein Albumin Urine WBC (Auto) Vancomycin Trough Salicylates Acetaminophen Plasma/Serum Alcohol Crossmatch 03/09/20 03/09/20 03/09/20 06:28 08:36 23:58 WBC RBC Hgb Hct MCH RDW Plt Count Lymph % (Auto) [place] % (Auto) [place] # Baso # Seg Neutrophils % Seg Neuts % (Manual) Lymphocytes % (Manual) Monocytes % (Manual) Seg Neutrophils # Seg Neutrophils # Man Lymphocytes # (Manual) Monocytes # (Manual) Eosinophils # (Manual) Basophils # (Manual) PT INR APTT ABG pH ABG pO2 ABG HCO3 ABG O2 Saturation ABG Base Excess ABG Hemoglobin Oxyhemoglobin Sodium Potassium Chloride Carbon Dioxide BUN Creatinine Glucose POC Glucose 139 H 167 H 122 H Lactic Acid Calcium Ionized Calcium Phosphorus Magnesium Total Bilirubin AST ALT Alkaline Phosphatase Ammonia Total Creatine Kinase CK-MB (CK-2) CK-MB (CK-2) Rel Index Total Protein Albumin Urine WBC (Auto) Vancomycin Trough Salicylates Acetaminophen Plasma/Serum Alcohol Crossmatch 03/10/20 03/10/20 03/11/20 06:32 23:27 06:23 WBC RBC Hgb Hct MCH RDW Plt Count Lymph % (Auto) [place] % (Auto) [place] # Baso # Seg Neutrophils % Seg Neuts % (Manual) Lymphocytes % (Manual) Monocytes % (Manual) Seg Neutrophils # Seg Neutrophils # Man Lymphocytes # (Manual) Monocytes # (Manual) Eosinophils # (Manual) Basophils # (Manual) PT INR APTT ABG pH ABG pO2 ABG HCO3 ABG O2 Saturation ABG Base Excess ABG Hemoglobin Oxyhemoglobin Sodium Potassium Chloride Carbon Dioxide BUN Creatinine Glucose POC Glucose 165 H 115 H 139 H Lactic Acid Calcium Ionized Calcium Phosphorus Magnesium Total Bilirubin AST ALT Alkaline Phosphatase Ammonia Total Creatine Kinase CK-MB (CK-2) CK-MB (CK-2) Rel Index Total Protein Albumin Urine WBC (Auto) Vancomycin Trough Salicylates Acetaminophen Plasma/Serum Alcohol Crossmatch 03/11/20 03/11/20 03/12/20 12:29 18:02 04:53 WBC RBC Hgb Hct MCH RDW Plt Count 625 H Lymph % (Auto) [place] % (Auto) [place] # Baso # Seg Neutrophils % Seg Neuts % (Manual) Lymphocytes % (Manual) Monocytes % (Manual) Seg Neutrophils # Seg Neutrophils # Man Lymphocytes # (Manual) Monocytes # (Manual) Eosinophils # (Manual) Basophils # (Manual) PT INR APTT ABG pH ABG pO2 ABG HCO3 ABG O2 Saturation ABG Base Excess ABG Hemoglobin Oxyhemoglobin Sodium Potassium Chloride Carbon Dioxide BUN Creatinine Glucose POC Glucose 164 H 113 H Lactic Acid Calcium Ionized Calcium Phosphorus Magnesium Total Bilirubin AST ALT Alkaline Phosphatase Ammonia Total Creatine Kinase CK-MB (CK-2) CK-MB (CK-2) Rel Index Total Protein Albumin Urine WBC (Auto) Vancomycin Trough Salicylates Acetaminophen Plasma/Serum Alcohol Crossmatch 03/12/20 03/12/20 03/12/20 04:53 06:26 12:38 WBC RBC Hgb Hct MCH RDW Plt Count Lymph % (Auto) [place] % (Auto) [place] # Baso # Seg Neutrophils % Seg Neuts % (Manual) Lymphocytes % (Manual) Monocytes % (Manual) Seg Neutrophils # Seg Neutrophils # Man Lymphocytes # (Manual) Monocytes # (Manual) Eosinophils # (Manual) Basophils # (Manual) PT INR APTT ABG pH ABG pO2 ABG HCO3 ABG O2 Saturation ABG Base Excess ABG Hemoglobin Oxyhemoglobin Sodium Potassium 5.3 H Chloride Carbon Dioxide BUN 34 H Creatinine Glucose 159 H POC Glucose 149 H 130 H Lactic Acid Calcium 10.7 H Ionized Calcium Phosphorus Magnesium Total Bilirubin AST ALT Alkaline Phosphatase Ammonia Total Creatine Kinase CK-MB (CK-2) CK-MB (CK-2) Rel Index Total Protein Albumin Urine WBC (Auto) Vancomycin Trough Salicylates Acetaminophen Plasma/Serum Alcohol Crossmatch 03/13/20 03/13/20 03/13/20 03:50 06:12 18:11 WBC RBC Hgb Hct MCH RDW Plt Count Lymph % (Auto) [place] % (Auto) [place] # Baso # Seg Neutrophils % Seg Neuts % (Manual) Lymphocytes % (Manual) Monocytes % (Manual) Seg Neutrophils # Seg Neutrophils # Man Lymphocytes # (Manual) Monocytes # (Manual) Eosinophils # (Manual) Basophils # (Manual) PT INR APTT ABG pH ABG pO2 ABG HCO3 ABG O2 Saturation ABG Base Excess ABG Hemoglobin Oxyhemoglobin Sodium Potassium Chloride Carbon Dioxide 20 L BUN 30 H Creatinine 0.6 L Glucose 153 H POC Glucose 124 H 111 H Lactic Acid Calcium Ionized Calcium Phosphorus Magnesium Total Bilirubin AST ALT Alkaline Phosphatase Ammonia Total Creatine Kinase CK-MB (CK-2) CK-MB (CK-2) Rel Index Total Protein Albumin Urine WBC (Auto) Vancomycin Trough Salicylates Acetaminophen Plasma/Serum Alcohol Crossmatch 03/14/20 03/14/20 03/15/20 12:01 15:40 00:02 WBC RBC Hgb Hct MCH RDW Plt Count Lymph % (Auto) [place] % (Auto) [place] # Baso # Seg Neutrophils % Seg Neuts % (Manual) Lymphocytes % (Manual) Monocytes % (Manual) Seg Neutrophils # Seg Neutrophils # Man Lymphocytes # (Manual) Monocytes # (Manual) Eosinophils # (Manual) Basophils # (Manual) PT INR APTT ABG pH ABG pO2 ABG HCO3 ABG O2 Saturation ABG Base Excess ABG Hemoglobin Oxyhemoglobin Sodium Potassium Chloride Carbon Dioxide BUN Creatinine Glucose POC Glucose 116 H 125 H 143 H Lactic Acid Calcium Ionized Calcium Phosphorus Magnesium Total Bilirubin AST ALT Alkaline Phosphatase Ammonia Total Creatine Kinase CK-MB (CK-2) CK-MB (CK-2) Rel Index Total Protein Albumin Urine WBC (Auto) Vancomycin Trough Salicylates Acetaminophen Plasma/Serum Alcohol Crossmatch 03/15/20 03/15/20 03/16/20 12:03 18:14 12:14 WBC RBC Hgb Hct MCH RDW Plt Count Lymph % (Auto) [place] % (Auto) [place] # Baso # Seg Neutrophils % Seg Neuts % (Manual) Lymphocytes % (Manual) Monocytes % (Manual) Seg Neutrophils # Seg Neutrophils # Man Lymphocytes # (Manual) Monocytes # (Manual) Eosinophils # (Manual) Basophils # (Manual) PT INR APTT ABG pH ABG pO2 ABG HCO3 ABG O2 Saturation ABG Base Excess ABG Hemoglobin Oxyhemoglobin Sodium Potassium Chloride Carbon Dioxide BUN Creatinine Glucose POC Glucose 106 H 107 H 107 H Lactic Acid Calcium Ionized Calcium Phosphorus Magnesium Total Bilirubin AST ALT Alkaline Phosphatase Ammonia Total Creatine Kinase CK-MB (CK-2) CK-MB (CK-2) Rel Index Total Protein Albumin Urine WBC (Auto) Vancomycin Trough Salicylates Acetaminophen Plasma/Serum Alcohol Crossmatch 03/16/20 03/17/20 03/17/20 18:30 05:44 12:09 WBC RBC Hgb Hct MCH RDW Plt Count Lymph % (Auto) [place] % (Auto) [place] # Baso # Seg Neutrophils % Seg Neuts % (Manual) Lymphocytes % (Manual) Monocytes % (Manual) Seg Neutrophils # Seg Neutrophils # Man Lymphocytes # (Manual) Monocytes # (Manual) Eosinophils # (Manual) Basophils # (Manual) PT INR APTT ABG pH ABG pO2 ABG HCO3 ABG O2 Saturation ABG Base Excess ABG Hemoglobin Oxyhemoglobin Sodium Potassium Chloride Carbon Dioxide BUN Creatinine Glucose POC Glucose 128 H 114 H 120 H Lactic Acid Calcium Ionized Calcium Phosphorus Magnesium Total Bilirubin AST ALT Alkaline Phosphatase Ammonia Total Creatine Kinase CK-MB (CK-2) CK-MB (CK-2) Rel Index Total Protein Albumin Urine WBC (Auto) Vancomycin Trough Salicylates Acetaminophen Plasma/Serum Alcohol Crossmatch 03/17/20 03/17/20 03/18/20 16:51 23:36 07:07 WBC RBC Hgb Hct MCH RDW Plt Count Lymph % (Auto) [place] % (Auto) [place] # Baso # Seg Neutrophils % Seg Neuts % (Manual) Lymphocytes % (Manual) Monocytes % (Manual) Seg Neutrophils # Seg Neutrophils # Man Lymphocytes # (Manual) Monocytes # (Manual) Eosinophils # (Manual) Basophils # (Manual) PT INR APTT ABG pH ABG pO2 ABG HCO3 ABG O2 Saturation ABG Base Excess ABG Hemoglobin Oxyhemoglobin Sodium Potassium Chloride Carbon Dioxide BUN Creatinine Glucose POC Glucose 108 H 145 H 116 H Lactic Acid Calcium Ionized Calcium Phosphorus Magnesium Total Bilirubin AST ALT Alkaline Phosphatase Ammonia Total Creatine Kinase CK-MB (CK-2) CK-MB (CK-2) Rel Index Total Protein Albumin Urine WBC (Auto) Vancomycin Trough Salicylates Acetaminophen Plasma/Serum Alcohol Crossmatch 03/18/20 03/19/20 03/19/20 18:11 06:09 11:49 WBC RBC Hgb Hct MCH RDW Plt Count Lymph % (Auto) [place] % (Auto) [place] # Baso # Seg Neutrophils % Seg Neuts % (Manual) Lymphocytes % (Manual) Monocytes % (Manual) Seg Neutrophils # Seg Neutrophils # Man Lymphocytes # (Manual) Monocytes # (Manual) Eosinophils # (Manual) Basophils # (Manual) PT INR APTT ABG pH ABG pO2 ABG HCO3 ABG O2 Saturation ABG Base Excess ABG Hemoglobin Oxyhemoglobin Sodium Potassium Chloride Carbon Dioxide BUN Creatinine Glucose POC Glucose 106 H 160 H 145 H Lactic Acid Calcium Ionized Calcium Phosphorus Magnesium Total Bilirubin AST ALT Alkaline Phosphatase Ammonia Total Creatine Kinase CK-MB (CK-2) CK-MB (CK-2) Rel Index Total Protein Albumin Urine WBC (Auto) Vancomycin Trough Salicylates Acetaminophen Plasma/Serum Alcohol Crossmatch 03/20/20 03/20/20 03/20/20 01:01 06:14 12:52 WBC RBC Hgb Hct MCH RDW Plt Count Lymph % (Auto) [place] % (Auto) [place] # Baso # Seg Neutrophils % Seg Neuts % (Manual) Lymphocytes % (Manual) Monocytes % (Manual) Seg Neutrophils # Seg Neutrophils # Man Lymphocytes # (Manual) Monocytes # (Manual) Eosinophils # (Manual) Basophils # (Manual) PT INR APTT ABG pH ABG pO2 ABG HCO3 ABG O2 Saturation ABG Base Excess ABG Hemoglobin Oxyhemoglobin Sodium Potassium Chloride Carbon Dioxide BUN Creatinine Glucose POC Glucose 109 H 122 H 106 H Lactic Acid Calcium Ionized Calcium Phosphorus Magnesium Total Bilirubin AST ALT Alkaline Phosphatase Ammonia Total Creatine Kinase CK-MB (CK-2) CK-MB (CK-2) Rel Index Total Protein Albumin Urine WBC (Auto) Vancomycin Trough Salicylates Acetaminophen Plasma/Serum Alcohol Crossmatch 03/20/20 03/21/20 03/21/20 18:56 00:18 05:21 WBC RBC Hgb Hct MCH RDW Plt Count Lymph % (Auto) [place] % (Auto) [place] # Baso # Seg Neutrophils % Seg Neuts % (Manual) Lymphocytes % (Manual) Monocytes % (Manual) Seg Neutrophils # Seg Neutrophils # Man Lymphocytes # (Manual) Monocytes # (Manual) Eosinophils # (Manual) Basophils # (Manual) PT INR APTT ABG pH ABG pO2 ABG HCO3 ABG O2 Saturation ABG Base Excess ABG Hemoglobin Oxyhemoglobin Sodium Potassium Chloride Carbon Dioxide BUN Creatinine Glucose POC Glucose 110 H 140 H 112 H Lactic Acid Calcium Ionized Calcium Phosphorus Magnesium Total Bilirubin AST ALT Alkaline Phosphatase Ammonia Total Creatine Kinase CK-MB (CK-2) CK-MB (CK-2) Rel Index Total Protein Albumin Urine WBC (Auto) Vancomycin Trough Salicylates Acetaminophen Plasma/Serum Alcohol Crossmatch 03/21/20 03/22/20 03/22/20 17:15 01:14 12:08 WBC RBC Hgb Hct MCH RDW Plt Count Lymph % (Auto) [place] % (Auto) [place] # Baso # Seg Neutrophils % Seg Neuts % (Manual) Lymphocytes % (Manual) Monocytes % (Manual) Seg Neutrophils # Seg Neutrophils # Man Lymphocytes # (Manual) Monocytes # (Manual) Eosinophils # (Manual) Basophils # (Manual) PT INR APTT ABG pH ABG pO2 ABG HCO3 ABG O2 Saturation ABG Base Excess ABG Hemoglobin Oxyhemoglobin Sodium Potassium Chloride Carbon Dioxide BUN Creatinine Glucose POC Glucose 158 H 157 H 133 H Lactic Acid Calcium Ionized Calcium Phosphorus Magnesium Total Bilirubin AST ALT Alkaline Phosphatase Ammonia Total Creatine Kinase CK-MB (CK-2) CK-MB (CK-2) Rel Index Total Protein Albumin Urine WBC (Auto) Vancomycin Trough Salicylates Acetaminophen Plasma/Serum Alcohol Crossmatch 03/22/20 03/23/20 03/23/20 16:48 01:00 06:54 WBC RBC Hgb Hct MCH RDW Plt Count Lymph % (Auto) [place] % (Auto) [place] # Baso # Seg Neutrophils % Seg Neuts % (Manual) Lymphocytes % (Manual) Monocytes % (Manual) Seg Neutrophils # Seg Neutrophils # Man Lymphocytes # (Manual) Monocytes # (Manual) Eosinophils # (Manual) Basophils # (Manual) PT INR APTT ABG pH ABG pO2 ABG HCO3 ABG O2 Saturation ABG Base Excess ABG Hemoglobin Oxyhemoglobin Sodium Potassium Chloride Carbon Dioxide BUN Creatinine Glucose POC Glucose 111 H 153 H 129 H Lactic Acid Calcium Ionized Calcium Phosphorus Magnesium Total Bilirubin AST ALT Alkaline Phosphatase Ammonia Total Creatine Kinase CK-MB (CK-2) CK-MB (CK-2) Rel Index Total Protein Albumin Urine WBC (Auto) Vancomycin Trough Salicylates Acetaminophen Plasma/Serum Alcohol Crossmatch 03/23/20 03/23/20 03/23/20 12:08 15:54 23:20 WBC RBC Hgb Hct MCH RDW Plt Count Lymph % (Auto) [place] % (Auto) [place] # Baso # Seg Neutrophils % Seg Neuts % (Manual) Lymphocytes % (Manual) Monocytes % (Manual) Seg Neutrophils # Seg Neutrophils # Man Lymphocytes # (Manual) Monocytes # (Manual) Eosinophils # (Manual) Basophils # (Manual) PT INR APTT ABG pH ABG pO2 ABG HCO3 ABG O2 Saturation ABG Base Excess ABG Hemoglobin Oxyhemoglobin Sodium Potassium Chloride Carbon Dioxide BUN Creatinine Glucose POC Glucose 126 H 142 H 115 H Lactic Acid Calcium Ionized Calcium Phosphorus Magnesium Total Bilirubin AST ALT Alkaline Phosphatase Ammonia Total Creatine Kinase CK-MB (CK-2) CK-MB (CK-2) Rel Index Total Protein Albumin Urine WBC (Auto) Vancomycin Trough Salicylates Acetaminophen Plasma/Serum Alcohol Crossmatch 03/24/20 03/24/20 03/24/20 06:33 12:19 16:46 WBC RBC Hgb Hct MCH RDW Plt Count Lymph % (Auto) [place] % (Auto) [place] # Baso # Seg Neutrophils % Seg Neuts % (Manual) Lymphocytes % (Manual) Monocytes % (Manual) Seg Neutrophils # Seg Neutrophils # Man Lymphocytes # (Manual) Monocytes # (Manual) Eosinophils # (Manual) Basophils # (Manual) PT INR APTT ABG pH ABG pO2 ABG HCO3 ABG O2 Saturation ABG Base Excess ABG Hemoglobin Oxyhemoglobin Sodium Potassium Chloride Carbon Dioxide BUN Creatinine Glucose POC Glucose 122 H 156 H 140 H Lactic Acid Calcium Ionized Calcium Phosphorus Magnesium Total Bilirubin AST ALT Alkaline Phosphatase Ammonia Total Creatine Kinase CK-MB (CK-2) CK-MB (CK-2) Rel Index Total Protein Albumin Urine WBC (Auto) Vancomycin Trough Salicylates Acetaminophen Plasma/Serum Alcohol Crossmatch 03/24/20 03/25/20 03/25/20 23:56 04:28 06:45 WBC RBC Hgb Hct MCH RDW Plt Count Lymph % (Auto) [place] % (Auto) [place] # Baso # Seg Neutrophils % Seg Neuts % (Manual) Lymphocytes % (Manual) Monocytes % (Manual) Seg Neutrophils # Seg Neutrophils # Man Lymphocytes # (Manual) Monocytes # (Manual) Eosinophils # (Manual) Basophils # (Manual) PT INR APTT ABG pH ABG pO2 ABG HCO3 ABG O2 Saturation ABG Base Excess ABG Hemoglobin Oxyhemoglobin Sodium Potassium Chloride Carbon Dioxide BUN 23 H Creatinine 0.5 L Glucose 121 H POC Glucose 127 H 130 H Lactic Acid Calcium 10.3 H Ionized Calcium Phosphorus Magnesium Total Bilirubin AST ALT Alkaline Phosphatase Ammonia Total Creatine Kinase CK-MB (CK-2) CK-MB (CK-2) Rel Index Total Protein Albumin Urine WBC (Auto) Vancomycin Trough Salicylates Acetaminophen Plasma/Serum Alcohol Crossmatch 03/25/20 03/25/20 03/26/20 12:50 15:57 05:39 WBC RBC Hgb Hct MCH RDW Plt Count Lymph % (Auto) [place] % (Auto) [place] # Baso # Seg Neutrophils % Seg Neuts % (Manual) Lymphocytes % (Manual) Monocytes % (Manual) Seg Neutrophils # Seg Neutrophils # Man Lymphocytes # (Manual) Monocytes # (Manual) Eosinophils # (Manual) Basophils # (Manual) PT INR APTT ABG pH ABG pO2 ABG HCO3 ABG O2 Saturation ABG Base Excess ABG Hemoglobin Oxyhemoglobin Sodium Potassium Chloride Carbon Dioxide BUN Creatinine Glucose POC Glucose 145 H 118 H 136 H Lactic Acid Calcium Ionized Calcium Phosphorus Magnesium Total Bilirubin AST ALT Alkaline Phosphatase Ammonia Total Creatine Kinase CK-MB (CK-2) CK-MB (CK-2) Rel Index Total Protein Albumin Urine WBC (Auto) Vancomycin Trough Salicylates Acetaminophen Plasma/Serum Alcohol Crossmatch 03/26/20 03/26/20 03/27/20 16:04 23:17 11:31 WBC RBC Hgb Hct MCH RDW Plt Count Lymph % (Auto) [place] % (Auto) [place] # Baso # Seg Neutrophils % Seg Neuts % (Manual) Lymphocytes % (Manual) Monocytes % (Manual) Seg Neutrophils # Seg Neutrophils # Man Lymphocytes # (Manual) Monocytes # (Manual) Eosinophils # (Manual) Basophils # (Manual) PT INR APTT ABG pH ABG pO2 ABG HCO3 ABG O2 Saturation ABG Base Excess ABG Hemoglobin Oxyhemoglobin Sodium Potassium Chloride Carbon Dioxide BUN Creatinine Glucose POC Glucose 157 H 157 H 121 H Lactic Acid Calcium Ionized Calcium Phosphorus Magnesium Total Bilirubin AST ALT Alkaline Phosphatase Ammonia Total Creatine Kinase CK-MB (CK-2) CK-MB (CK-2) Rel Index Total Protein Albumin Urine WBC (Auto) Vancomycin Trough Salicylates Acetaminophen Plasma/Serum Alcohol Crossmatch 03/27/20 03/28/20 03/28/20 16:33 01:55 12:12 WBC RBC Hgb Hct MCH RDW Plt Count Lymph % (Auto) [place] % (Auto) [place] # Baso # Seg Neutrophils % Seg Neuts % (Manual) Lymphocytes % (Manual) Monocytes % (Manual) Seg Neutrophils # Seg Neutrophils # Man Lymphocytes # (Manual) Monocytes # (Manual) Eosinophils # (Manual) Basophils # (Manual) PT INR APTT ABG pH ABG pO2 ABG HCO3 ABG O2 Saturation ABG Base Excess ABG Hemoglobin Oxyhemoglobin Sodium Potassium Chloride Carbon Dioxide BUN Creatinine Glucose POC Glucose 126 H 106 H 116 H Lactic Acid Calcium Ionized Calcium Phosphorus Magnesium Total Bilirubin AST ALT Alkaline Phosphatase Ammonia Total Creatine Kinase CK-MB (CK-2) CK-MB (CK-2) Rel Index Total Protein Albumin Urine WBC (Auto) Vancomycin Trough Salicylates Acetaminophen Plasma/Serum Alcohol Crossmatch 03/28/20 03/29/20 03/29/20 17:57 06:41 16:48 WBC RBC Hgb Hct MCH RDW Plt Count Lymph % (Auto) [place] % (Auto) [place] # Baso # Seg Neutrophils % Seg Neuts % (Manual) Lymphocytes % (Manual) Monocytes % (Manual) Seg Neutrophils # Seg Neutrophils # Man Lymphocytes # (Manual) Monocytes # (Manual) Eosinophils # (Manual) Basophils # (Manual) PT INR APTT ABG pH ABG pO2 ABG HCO3 ABG O2 Saturation ABG Base Excess ABG Hemoglobin Oxyhemoglobin Sodium Potassium Chloride Carbon Dioxide BUN Creatinine Glucose POC Glucose 138 H 154 H 136 H Lactic Acid Calcium Ionized Calcium Phosphorus Magnesium Total Bilirubin AST ALT Alkaline Phosphatase Ammonia Total Creatine Kinase CK-MB (CK-2) CK-MB (CK-2) Rel Index Total Protein Albumin Urine WBC (Auto) Vancomycin Trough Salicylates Acetaminophen Plasma/Serum Alcohol Crossmatch 03/30/20 03/30/20 03/31/20 05:44 12:16 16:37 WBC RBC Hgb Hct MCH RDW Plt Count Lymph % (Auto) [place] % (Auto) [place] # Baso # Seg Neutrophils % Seg Neuts % (Manual) Lymphocytes % (Manual) Monocytes % (Manual) Seg Neutrophils # Seg Neutrophils # Man Lymphocytes # (Manual) Monocytes # (Manual) Eosinophils # (Manual) Basophils # (Manual) PT INR APTT ABG pH ABG pO2 ABG HCO3 ABG O2 Saturation ABG Base Excess ABG Hemoglobin Oxyhemoglobin Sodium Potassium Chloride Carbon Dioxide BUN Creatinine Glucose POC Glucose 110 H 122 H 128 H Lactic Acid Calcium Ionized Calcium Phosphorus Magnesium Total Bilirubin AST ALT Alkaline Phosphatase Ammonia Total Creatine Kinase CK-MB (CK-2) CK-MB (CK-2) Rel Index Total Protein Albumin Urine WBC (Auto) Vancomycin Trough Salicylates Acetaminophen Plasma/Serum Alcohol Crossmatch 04/01/20 04/02/20 04/02/20 22:51 11:38 16:35 WBC RBC Hgb Hct MCH RDW Plt Count Lymph % (Auto) [place] % (Auto) [place] # Baso # Seg Neutrophils % Seg Neuts % (Manual) Lymphocytes % (Manual) Monocytes % (Manual) Seg Neutrophils # Seg Neutrophils # Man Lymphocytes # (Manual) Monocytes # (Manual) Eosinophils # (Manual) Basophils # (Manual) PT INR APTT ABG pH ABG pO2 ABG HCO3 ABG O2 Saturation ABG Base Excess ABG Hemoglobin Oxyhemoglobin Sodium Potassium Chloride Carbon Dioxide BUN Creatinine Glucose POC Glucose 132 H 128 H 108 H Lactic Acid Calcium Ionized Calcium Phosphorus Magnesium Total Bilirubin AST ALT Alkaline Phosphatase Ammonia Total Creatine Kinase CK-MB (CK-2) CK-MB (CK-2) Rel Index Total Protein Albumin Urine WBC (Auto) Vancomycin Trough Salicylates Acetaminophen Plasma/Serum Alcohol Crossmatch 04/05/20 04/11/20 04/11/20 00:16 12:27 15:54 WBC RBC Hgb Hct MCH RDW Plt Count Lymph % (Auto) [place] % (Auto) [place] # Baso # Seg Neutrophils % Seg Neuts % (Manual) Lymphocytes % (Manual) Monocytes % (Manual) Seg Neutrophils # Seg Neutrophils # Man Lymphocytes # (Manual) Monocytes # (Manual) Eosinophils # (Manual) Basophils # (Manual) PT INR APTT ABG pH ABG pO2 ABG HCO3 ABG O2 Saturation ABG Base Excess ABG Hemoglobin Oxyhemoglobin Sodium Potassium Chloride Carbon Dioxide BUN Creatinine Glucose POC Glucose 117 H 123 H 114 H Lactic Acid Calcium Ionized Calcium Phosphorus Magnesium Total Bilirubin AST ALT Alkaline Phosphatase Ammonia Total Creatine Kinase CK-MB (CK-2) CK-MB (CK-2) Rel Index Total Protein Albumin Urine WBC (Auto) Vancomycin Trough Salicylates Acetaminophen Plasma/Serum Alcohol Crossmatch 04/11/20 04/13/20 04/16/20 21:55 16:39 05:00 WBC RBC Hgb Hct MCH RDW Plt Count Lymph % (Auto) [place] % (Auto) [place] # Baso # Seg Neutrophils % Seg Neuts % (Manual) Lymphocytes % (Manual) Monocytes % (Manual) Seg Neutrophils # Seg Neutrophils # Man Lymphocytes # (Manual) Monocytes # (Manual) Eosinophils # (Manual) Basophils # (Manual) PT INR APTT ABG pH ABG pO2 ABG HCO3 ABG O2 Saturation ABG Base Excess ABG Hemoglobin Oxyhemoglobin Sodium Potassium 3.2 L Chloride 107.4 H Carbon Dioxide BUN Creatinine 0.4 L Glucose POC Glucose 126 H 112 H Lactic Acid Calcium Ionized Calcium Phosphorus Magnesium Total Bilirubin AST ALT Alkaline Phosphatase Ammonia Total Creatine Kinase CK-MB (CK-2) CK-MB (CK-2) Rel Index Total Protein Albumin Urine WBC (Auto) Vancomycin Trough Salicylates Acetaminophen Plasma/Serum Alcohol Crossmatch 04/16/20 04/24/20 09:02 18:35 WBC RBC Hgb Hct MCH RDW Plt Count 502 H Lymph % (Auto) [place] % (Auto) 7.4 H [place] # Baso # Seg Neutrophils % Seg Neuts % (Manual) Lymphocytes % (Manual) Monocytes % (Manual) Seg Neutrophils # Seg Neutrophils # Man Lymphocytes # (Manual) Monocytes # (Manual) Eosinophils # (Manual) Basophils # (Manual) PT INR APTT ABG pH ABG pO2 ABG HCO3 ABG O2 Saturation ABG Base Excess ABG Hemoglobin Oxyhemoglobin Sodium Potassium Chloride Carbon Dioxide BUN Creatinine Glucose POC Glucose 172 H Lactic Acid Calcium Ionized Calcium Phosphorus Magnesium Total Bilirubin AST ALT Alkaline Phosphatase Ammonia Total Creatine Kinase CK-MB (CK-2) CK-MB (CK-2) Rel Index Total Protein Albumin Urine WBC (Auto) Vancomycin Trough Salicylates Acetaminophen Plasma/Serum Alcohol Crossmatch Allied health notes reviewed: nursing
--- NOTE | 2020-04-27 14:31 | Progress Note ---
Assessment and Plan - Patient Problems (1) Anoxic brain injury Current Visit: Yes Status: Acute Plan to address problem: Supportive care, continue current therapy. Aspiration precautions, seizure precautions. (2) Anoxic encephalopathy Current Visit: Yes Status: Acute Plan to address problem: Supportive care, aspiration precautions, seizure precautions, supportive care. (3) Acute respiratory failure Current Visit: Yes Status: Acute Qualifiers: Respiratory failure complication: hypoxia Qualified Code(s): J96.01 - Acute respiratory failure with hypoxia Plan to address problem: Patient is status post tracheostomy and PEG tube placement. Continue supplemental oxygen. (4) Seizure disorder Current Visit: Yes Status: Acute Plan to address problem: Continue Keppra therapy, seizure precautions, supportive care. (5) DVT prophylaxis Current Visit: Yes Status: Acute Plan to address problem: SCD to bilateral lower extremities while in bed, prophylactic Lovenox (6) Advance care planning Current Visit: Yes Status: Acute Plan to address problem: Patient is DNR, supportive care, discharge planning conducted, discussed with case management. +30 minutes. History Interval history: 55 YO Female HD #35 with TATIANA S/P Cardiac Arrest, Anoxic Encephalopathy, Severe Malnutrition, Acute/Chronic Respiratory Failure S/P Trach and Peg placement who is currently pending placement. Patient is resting comfortably in bed. No acute decompensation overnight. No reported nursing events. Case management consulted for discharge planning/placement. Hospitalist Physical - Constitutional Vitals: Temp Pulse Resp BP Pulse Ox 98.3 F 89 18 142/87 99 04/27/20 04:55 04/27/20 08:03 04/27/20 08:03 04/27/20 04:55 04/27/20 08:03 General appearance: Present: no acute distress, cachectic - EENT ENT: hearing decreased - Neck Neck: Present: supple - Respiratory Respiratory: bilateral: diminished - Cardiovascular Rhythm: regular Heart Sounds: Present: S1 & S2 Peripheral Pulses: within normal limits - Abdominal General gastrointestinal: soft, non-tender, non-distended - Integumentary Integumentary: Present: clear, dry - Psychiatric Psychiatric: no appropriate mood/affect, no intact judgment & insight - Neurologic Neurologic: no moves all extremities, no gait normal HEART Score - HEART Score Troponin: Troponin T < 0.010 ng/mL (0.00-0.029) 11/22/19 23:27 Results - Labs CBC & Chem 7: 04/16/20 09:02 04/16/20 05:00 Labs: Laboratory Last Values WBC 6.7 K/mm3 (4.5-11.0) 04/16/20 09:02 RBC 4.13 M/mm3 (3.65-5.03) 04/16/20 09:02 Hgb 11.8 gm/dl (10.1-14.3) 04/16/20 09:02 Hct 37.0 % (30.3-42.9) 04/16/20 09:02 MCV 90 fl (79-97) 04/16/20 09:02 MCH 29 pg (28-32) 04/16/20 09:02 MCHC 32 % (30-34) 04/16/20 09:02 RDW 14.3 % (13.2-15.2) 04/16/20 09:02 Plt Count 502 K/mm3 (140-440) H 04/16/20 09:02 Lymph % (Auto) 25.9 % (13.4-35.0) 04/16/20 09:02 Meagher % (Auto) 7.4 % (0.0-7.3) H 04/16/20 09:02 Eos % (Auto) 0.9 % (0.0-4.3) 04/16/20 09:02 Baso % (Auto) 0.8 % (0.0-1.8) 04/16/20 09:02 Lymph # 1.7 K/mm3 (1.2-5.4) 04/16/20 09:02 Meagher # 0.5 K/mm3 (0.0-0.8) 04/16/20 09:02 Eos # 0.1 K/mm3 (0.0-0.4) 04/16/20 09:02 Baso # 0.1 K/mm3 (0.0-0.1) 04/16/20 09:02 Add Manual Diff Complete 12/25/19 03:47 Total Counted 200 12/25/19 03:47 Seg Neutrophils % 65.0 % (40.0-70.0) 04/16/20 09:02 Seg Neuts % (Manual) 97.5 % (40.0-70.0) H 12/25/19 03:47 Band Neutrophils % 0 % 12/25/19 03:47 Lymphocytes % (Manual) 1.0 % (13.4-35.0) L 12/25/19 03:47 Reactive Lymphs % (Man) 0 % 12/25/19 03:47 Monocytes % (Manual) 1.5 % (0.0-7.3) 12/25/19 03:47 Eosinophils % (Manual) 0 % (0.0-4.3) 12/25/19 03:47 Basophils % (Manual) 0 % (0.0-1.8) 12/25/19 03:47 Metamyelocytes % 0 % 12/25/19 03:47 Myelocytes % 0 % 12/25/19 03:47 Promyelocytes % 0 % 12/25/19 03:47 Blast Cells % 0 % 12/25/19 03:47 Nucleated RBC % Not Reportable 12/25/19 03:47 Seg Neutrophils # 4.4 K/mm3 (1.8-7.7) 04/16/20 09:02 Seg Neutrophils # Man 35.3 K/mm3 (1.8-7.7) H 12/25/19 03:47 Band Neutrophils # 0.0 K/mm3 12/25/19 03:47 Lymphocytes # (Manual) 0.4 K/mm3 (1.2-5.4) L 12/25/19 03:47 Abs React Lymphs (Man) 0.0 K/mm3 12/25/19 03:47 Monocytes # (Manual) 0.5 K/mm3 (0.0-0.8) 12/25/19 03:47 Eosinophils # (Manual) 0.0 K/mm3 (0.0-0.4) 12/25/19 03:47 Basophils # (Manual) 0.0 K/mm3 (0.0-0.1) 12/25/19 03:47 Metamyelocytes # 0.0 K/mm3 12/25/19 03:47 Myelocytes # 0.0 K/mm3 12/25/19 03:47 Promyelocytes # 0.0 K/mm3 12/25/19 03:47 Blast Cells # 0.0 K/mm3 12/25/19 03:47 Pathologist Review 12/13/19 07:48 WBC Morphology Not Reportable 12/25/19 03:47 Hypersegmented Neuts Not Reportable 12/25/19 03:47 Hyposegmented Neuts Not Reportable 12/25/19 03:47 Hypogranular Neuts Not Reportable 12/25/19 03:47 Smudge Cells Not Reportable 12/25/19 03:47 Toxic Granulation Not Reportable 12/25/19 03:47 Toxic Vacuolation Not Reportable 12/25/19 03:47 Dohle Bodies Not Reportable 12/25/19 03:47 Pelger-Huet Anomaly Not Reportable 12/25/19 03:47 Dominique Rods Not Reportable 12/25/19 03:47 Platelet Estimate Consistent w auto 12/25/19 03:47 Clumped Platelets Not Reportable 12/25/19 03:47 Plt Clumps, EDTA Not Reportable 12/25/19 03:47 Large Platelets Not Reportable 12/25/19 03:47 Giant Platelets Not Reportable 12/25/19 03:47 Platelet Satelliting Not Reportable 12/25/19 03:47 Plt Morphology Comment Not Reportable 12/25/19 03:47 RBC Morphology Not Reportable 12/25/19 03:47 Dimorphic RBCs Not Reportable 12/25/19 03:47 Polychromasia Not Reportable 12/25/19 03:47 Hypochromasia Not Reportable 12/25/19 03:47 Poikilocytosis Not Reportable 12/25/19 03:47 Anisocytosis 1+ 12/25/19 03:47 Microcytosis Not Reportable 12/25/19 03:47 Macrocytosis Not Reportable 12/25/19 03:47 Spherocytes Not Reportable 12/25/19 03:47 Pappenheimer Bodies Not Reportable 12/25/19 03:47 Sickle Cells Not Reportable 12/25/19 03:47 Target Cells Not Reportable 12/25/19 03:47 Tear Drop Cells Not Reportable 12/25/19 03:47 Ovalocytes Not Reportable 12/25/19 03:47 Helmet Cells Not Reportable 12/25/19 03:47 Frias-Normal Bodies Not Reportable 12/25/19 03:47 Morse Rings Not Reportable 12/25/19 03:47 [place] Cells Not Reportable 12/25/19 03:47 Bite Cells Not Reportable 12/25/19 03:47 Crenated Cell Not Reportable 12/25/19 03:47 Elliptocytes Not Reportable 12/25/19 03:47 Acanthocytes (Spur) Not Reportable 12/25/19 03:47 Rouleaux Not Reportable 12/25/19 03:47 Hemoglobin C Crystals Not Reportable 12/25/19 03:47 Schistocytes Not Reportable 12/25/19 03:47 Malaria parasites Not Reportable 12/25/19 03:47 Gregg Bodies Not Reportable 12/25/19 03:47 Hem Pathologist Commnt No 12/25/19 03:47 PT 17.0 Sec. (12.2-14.9) H 11/23/19 03:47 INR 1.36 (0.87-1.13) H 11/23/19 03:47 APTT 128.2 Sec. (24.2-36.6) H* 11/23/19 03:47 Heparin Anti-Xa Level 0.31 U.I./ml (0.3-0.7) 11/23/19 09:03 ABG pH 7.433 pH Units (7.350-7.450) 03/08/20 13:25 ABG pCO2 40.2 mm Hg 03/08/20 13:25 ABG pO2 71.1 mm Hg (80.0-90.0) L 03/08/20 13:25 ABG HCO3 26.2 mmol/L (20.0-26.0) H 03/08/20 13:25 ABG O2 Saturation 97.0 % (95.0-99.0) 03/08/20 13:25 ABG O2 Content 11.0 (0.0-44) 03/08/20 13:25 ABG Base Excess 1.8 mmol/L (-2.0-3.0) 03/08/20 13:25 ABG Hemoglobin 8.2 gm/dl (12.0-16.0) L 03/08/20 13:25 ABG Carboxyhemoglobin 1.7 % (0.0-5.0) 03/08/20 13:25 ABG Methemoglobin 0.5 % (0.0-1.5) 03/08/20 13:25 Oxyhemoglobin 94.8 % (95.0-99.0) L 03/08/20 13:25 FiO2 21 % 03/08/20 13:25 Sodium 144 mmol/L (137-145) 04/16/20 05:00 Potassium 3.2 mmol/L (3.6-5.0) L 04/16/20 05:00 Chloride 107.4 mmol/L (98-107) H 04/16/20 05:00 Carbon Dioxide 23 mmol/L (22-30) 04/16/20 05:00 Anion Gap 17 mmol/L 04/16/20 05:00 BUN 16 mg/dL (7-17) 04/16/20 05:00 Creatinine 0.4 mg/dL (0.7-1.2) L 04/16/20 05:00 Estimated GFR > 60 ml/min 04/16/20 05:00 BUN/Creatinine Ratio 40 % 04/16/20 05:00 Glucose 73 mg/dL (65-100) 04/16/20 05:00 POC Glucose 172 (70-105) H 04/24/20 18:35 Lactic Acid 1.80 mmol/L (0.7-2.0) 11/25/19 05:05 Calcium 10.0 mg/dL (8.4-10.2) 04/16/20 05:00 Ionized Calcium 4.5 mg/dL (4.8-5.6) L 11/23/19 06:32 Phosphorus 4.20 mg/dL (2.5-4.5) D 11/28/19 08:59 Magnesium 1.90 mg/dL (1.7-2.3) 02/28/20 03:40 Total Bilirubin 0.40 mg/dL (0.1-1.2) 12/13/19 07:48 AST 27 units/L (5-40) 12/13/19 07:48 ALT 26 units/L (7-56) 12/13/19 07:48 Alkaline Phosphatase 316 units/L (35-129) H 12/13/19 07:48 Ammonia 42.0 umol/L (25-60) 11/29/19 13:41 Total Creatine Kinase 139 units/L (30-135) H 11/22/19 23:27 CK-MB (CK-2) 8.3 ng/mL (0.0-4.0) H 11/22/19 23:27 CK-MB (CK-2) Rel Index 5.9 (0-4) H 11/22/19 23:27 Troponin T < 0.010 ng/mL (0.00-0.029) 11/22/19 23:27 Total Protein 6.8 g/dL (6.3-8.2) 12/13/19 07:48 Albumin 2.4 g/dL (3.9-5) L 12/13/19 07:48 Albumin/Globulin Ratio 0.5 % 12/13/19 07:48 Lipase 18 units/L (13-60) 11/23/19 00:34 Procalcitonin 1.09 ng/mL (<0.15) 11/23/19 04:53 TSH 1.010 mlU/mL (0.270-4.200) 02/12/20 07:36 Free T4 1.08 ng/dL (0.76-1.46) 02/12/20 07:36 Urine Color Yellow (Yellow) 12/16/19 Unknown Urine Turbidity Slightly-cloudy (Clear) 12/16/19 Unknown Urine pH 5.0 (5.0-7.0) 12/16/19 Unknown Ur Specific [place] 1.018 (1.003-1.030) 12/16/19 Unknown Urine Protein 30 mg/dl mg/dL (Negative) 12/16/19 Unknown Urine Glucose (UA) Neg mg/dL (Negative) 12/16/19 Unknown Urine Ketones Neg mg/dL (Negative) 12/16/19 Unknown Urine Blood Sm (Negative) 12/16/19 Unknown Urine Nitrite Neg (Negative) 12/16/19 Unknown Urine Bilirubin Neg (Negative) 12/16/19 Unknown Urine Urobilinogen < 2.0 mg/dL (<2.0) 12/16/19 Unknown Ur Leukocyte Esterase Neg (Negative) 12/16/19 Unknown Urine WBC (Auto) 6.0 /HPF (0.0-6.0) 12/16/19 Unknown Urine RBC (Auto) 9.0 /HPF (0.0-6.0) 12/16/19 Unknown U Epithel Cells (Auto) < 1.0 /HPF (0-13.0) 12/16/19 Unknown Urine Bacteria (Auto) 2+ /HPF (Negative) 11/22/19 23:17 Hyaline Casts 3 /LPF 12/16/19 Unknown Granular Casts 3 /LPF 12/16/19 Unknown Urine Mucus Few /HPF 12/16/19 Unknown Vancomycin Trough 33.8 ug/mL (5.0-20.0) H 12/21/19 08:56 Random Vancomycin 16.2 ug/mL (0-40.0) 12/24/19 04:31 Salicylates < 0.3 mg/dL (2.8-20.0) L 11/22/19 23:27 Urine Opiates Screen Presumptive negative 11/22/19 23:17 Urine Methadone Screen Presumptive negative 11/22/19 23:17 Acetaminophen < 5.0 ug/mL (10.0-30.0) L 11/22/19 23:27 Ur Barbiturates Screen Presumptive negative 11/22/19 23:17 Ur Phencyclidine Scrn Presumptive negative 11/22/19 23:17 Ur Amphetamines Screen Presumptive negative 11/22/19 23:17 U Benzodiazepines Scrn Presumptive negative 11/22/19 23:17 Urine Cocaine Screen Presumptive negative 11/22/19 23:17 U Marijuana (THC) Screen Presumptive negative 11/22/19 23:17 Drugs of Abuse Note Disclamer 11/22/19 23:17 Plasma/Serum Alcohol 0.08 % (0-0.07) H 11/22/19 23:27 Coronavirus (PCR) Negative (Negative) 02/05/20 07:50 Hepatitis A IgM Ab Non-reactive (NonReactive) 11/23/19 01:19 Hep Bs Antigen Non-reactive (Negative) 11/23/19 01:19 Hep B Core IgM Ab Non-reactive (NonReactive) 11/23/19 01:19 Hepatitis C Antibody Non-reactive (NonReactive) 11/23/19 01:19 Blood Type O POSITIVE 12/21/19 14:54 Antibody Screen Negative 12/21/19 14:54 Crossmatch See Detail 12/21/19 14:54 - Diagnostic Impressions Diagnostic Impressions: Echocardiogram 11/23/19 03:58 Transthoracic Echocardiogram Indication: Cardiac arrest BP: 131/89 HR: 115 Conclusions *The study quality is technically difficult. *Global left ventricular wall motion and contractility are within normal limits. *The estimated ejection fraction is 55-60%. *Abnormal left ventricular diastolic filling is observed, consistent with impaired relaxation. *There is no pericardial effusion. Findings Procedure Info: The study quality is technically difficult. The study was technically limited due to the patient's inability to lay in the left lateral decubitus position. Left Ventricle: The left ventricular chamber size is normal. There is no left ventricular hypertrophy. Global left ventricular wall motion and contractility are within normal limits. Global left ventricular systolic function is normal. The estimated ejection fraction is 55-60%. Abnormal left ventricular diastolic filling is observed, consistent with impaired relaxation. Left Atrium: The left atrial chamber size is normal. Aortic Valve: The aortic valve leaflets are mildly thickened. Mitral Valve: The mitral valve leaflets are mildly thickened. There is no evidence of mitral regurgitation. Tricuspid Valve: The tricuspid valve leaflets are normal. There is trace tricuspid regurgitation. The right ventricular systolic pressure is calculated at 33 mmHg. Pulmonic Valve: The pulmonic valve appears normal. Pericardium: The pericardium appears normal. There is no pericardial effusion. Aorta: The aorta appears normal. Venous: The inferior vena cava appears normal in size. Measurements Chambers 2D Name Value Normal Range IVSd (2D) 0.94 cm (0.6 - 1.1) LVPWd (2D) 0.81 cm (0.6 - 1.1) LVIDd (2D) 3.6 cm (3.7 - 5.6) LVIDs (2D) 2.27 cm (2 - 3.8) LV FS (2D) 36.93 % - EF Teichholz (2D) 67.76 % - Ao root diameter (2D) 3.03 cm (2 - 3.7) Volumes/Mass Name Value Normal Range LA ESV SP 4CH (A/L) 16.89 ml - LA ESV SP 4CH (MOD) 15.52 ml - Diastolic/Systolic Function Name Value Normal Range MV E-wave Vmax 0.55 m/sec - MV deceleration time 200.89 msec - MV A-wave Vmax 0.68 m/sec - MV E:A ratio 0.82 ratio - Aortic Valve Name Value Normal Range AV Vmax 1.1 m/sec - AV VTI 15.9 cm - AV peak gradient 4.86 mmHg - AV mean gradient 2.59 mmHg - LVOT diameter 2 cm - LVOT Vmax 1.03 m/sec - LVOT VTI 15.87 cm - LVOT peak gradient 4.24 mmHg - LVOT mean gradient 2.41 mmHg - SV LVOT 49.77 ml - JOSÉ MIGUEL (continuity Vmax) 2.93 cm2 - JOSÉ MIGUEL (continuity VTI) 3.13 cm2 - Tricuspid Valve Name Value Normal Range TR Vmax 2.74 m/sec - TR peak gradient 303 mmHg - RAP 3 mmHg - RVSP 33 mmHg - IVC diameter 1.77 cm (1.2 - 2.3) Pulmonic Valve/Qp:Qs Name Value Normal Range PV Vmax 0.77 m/sec - PV peak gradient 2.4 mmHg - PV acceleration time 114.18 msec - Echocardiogram Limited Views 12/17/19 14:53 Transthoracic Echocardiogram Indication: R/O Vegetations BP: 144/83 HR: 133 Conclusions *Global left ventricular systolic function is mildly decreased. *The estimated ejection fraction is 45-50%. *A trivial pericardial effusion is visualized. Findings Left Ventricle: The left ventricular chamber size is normal. Global left ventricular systolic function is mildly decreased. The estimated ejection fraction is 45-50%. Left Atrium: The left atrial chamber size is normal. Right Ventricle: The right ventricular cavity size is normal. Right Atrium: The right atrial cavity size is normal. Aortic Valve: The aortic valve is not well visualized. There is no evidence of aortic regurgitation. Mitral Valve: The mitral valve leaflets are mildly thickened. There is trace of mitral regurgitation. Tricuspid Valve: The tricuspid valve leaflets are mildly thickened. There is trace tricuspid regurgitation. The right ventricular systolic pressure is calculated at 29 mmHg. Pulmonic Valve: The pulmonic valve is not well visualized. There is no evidence of pulmonic regurgitation. Pericardium: A trivial pericardial effusion is visualized. Aorta: There is no dilatation of the ascending aorta. There is no dilatation of the aortic root. Venous: The inferior vena cava appears normal in size. There is a greater than 50% respiratory change in the inferior vena cava dimension. Measurements Chambers 2D Name Value Normal Range IVSd (2D) 0.83 cm (0.6 - 1.1) LVPWd (2D) 0.98 cm (0.6 - 1.1) LVIDd (2D) 3.71 cm (3.7 - 5.6) LVIDs (2D) 2.93 cm (2 - 3.8) LV FS (2D) 21.12 % - EF Teichholz (2D) 43.71 % - Ao root diameter (2D) 3.02 cm (2 - 3.7) Volumes/Mass Name Value Normal Range LA ESV SP 4CH (A/L) 36.8 ml - LA ESV SP 2CH (A/L) 45.89 ml - LA ESV BP (A/L) 42.35 ml - LA ESV BP (A/L) index 26.63 ml/m2 - LA ESV SP 4CH (MOD) 34.42 ml - LA ESV SP 2CH (MOD) 44.21 ml - LA ESV BP (MOD) 39.82 ml - LA ESV BP (MOD) index 25.05 ml/m2 - Aortic Valve Name Value Normal Range LVOT diameter 1.63 cm - Tricuspid Valve Name Value Normal Range TR Vmax 2.56 m/sec - TR peak gradient 26 mmHg - RAP 3 mmHg - RVSP 29 mmHg - IVC diameter 1.83 cm (1.2 - 2.3) [place]/IV: Voiding Method Incontinent IV Catheter Type [Forearm] Peripheral IV IV Catheter Type [Left Forearm INT / Saline Lock ] IV Catheter Type [Right INT / Saline Lock Antecubital] IV Catheter Type [Right Hand] INT / Saline Lock IV Catheter Type [Right Wrist] Peripheral IV IV Catheter Type [Left Wrist] Peripheral IV IV Catheter Type [Left Peripheral IV Antecubital] IV Catheter Type [Right INT / Saline Lock Forearm] IV Catheter Type [Left Hand] INT / Saline Lock Active Medications - Current Medications Current Medications: Generic Name Dose Route Start Last Admin Trade Name Luh PRN Reason Stop Dose Admin Albuterol 2.5 mg 03/25/20 19:25 04/07/20 08:59 Proventil IH 2.5 mg Q4HRT PRN Administration Shortness Of Breath Lipase/Protease/Amylase 1 each 11/23/19 11:[address] 10,500 Unit FEEDTUBE PRN PRN Use w/ sod bicarb for FT Bisacodyl 10 mg 02/06/20 13:57 Dulcolax RI QDAY PRN Constipation unrelieved by MOM Enoxaparin Sodium 40 mg 03/07/20 22:00 04/26/20 21:11 Enoxaparin SUB-Q 40 mg QDAY@2200 LUCHO Administration Folic Acid 1 mg 04/27/20 10:00 04/27/20 09:46 Folvite PO 1 mg QDAY LUCHO Administration Glycopyrrolate 2 mg 12/31/19 20:00 04/27/20 13:03 Robinul PO 2 mg TID LUCHO Administration Haloperidol Lactate 5 mg 03/05/20 09:22 04/26/20 11:52 Haldol IM 5 mg Q6H PRN Administration Agitation Hydroxyzine Pamoate 25 mg 12/06/19 10:00 04/27/20 09:46 Vistaril PO 25 mg BID LUCHO Administration Lansoprazole 30 mg 11/27/19 10:00 04/27/20 09:46 Prevacid Solutab FEEDTUBE 30 mg QDAY LUCHO Administration Levetiracetam 500 mg 11/29/19 10:00 04/27/20 09:46 Keppra PO 500 mg BID LUCHO Administration Mirtazapine 30 mg 12/06/19 10:00 04/27/20 09:46 Remeron PO 30 mg DAILY LUCHO Administration Nicotine 21 mg 02/16/20 13:00 04/27/20 09:46 Habitrol TD 21 mg QDAY LUCHO Administration Ondansetron HCl 4 mg 12/10/19 07:53 02/25/20 02:51 Zofran IV 4 mg Q4H PRN Administration Nausea And Vomiting Polyethylene Glycol 17 gm 02/06/20 13:57 Miralax 3350 PO QDAY PRN Constipation Quetiapine Fumarate 100 mg 03/06/20 10:00 04/27/20 09:46 Seroquel FEEDTUBE 100 mg BID LUCHO Administration Scopolamine 1 each 02/08/20 15:00 04/26/20 09:06 Transderm-Scop TD 1 each Q3D LUCHO Administration Sertraline HCl 25 mg 01/01/20 10:00 04/27/20 09:46 Zoloft PO 25 mg QDAY LUCHO Administration Simple Syrup 15 ml 11/23/19 11:50 Simple Syrup FEEDTUBE PRN PRN Hypoglycemia BG<70 Simple Syrup 30 ml 11/23/19 11:50 Simple Syrup FEEDTUBE PRN PRN Hypoglycemia Sodium Bicarbonate 325 mg 11/23/19 11:50 Sodium Bicarbonate FEEDTUBE PRN PRN For Clogged Feeding Tube Nutrition/Malnutrition Assess - Dietary Evaluation Nutrition/Malnutrition Findings: Nutrition Notes Start: 11/23/19 11:29 Freq: Status: Active Protocol: Document 04/23/20 14:33 EVELIA (Rec: 04/23/20 14:35 EVELIA [email or web address]) Nutrition Notes Initial or Follow up Reassessment Other Pertinent Diagnosis s/p Cardiac arrest, acute metabolic encephalopathy Current Diet Mech soft with chopped meats Labs/Tests Reviewed Pertinent Medications Reviewed Height 5 ft 6 in Weight 43.5 kg [place] Body Weight (kg) 59.09 BMI 15.5 Subjective/Other Information Pt has consumed 79% of meals since last assessment. Percent of energy/protein needs met: 100% energy 100% pro Burn Absent Trauma Absent Current % PO Good (75-100%) #2 Nutrition Diagnosis Malnutrition Diagnosis Progress(for reassessment Continues documentation) Is patient on ventilator? No Is Patient Ambulatory and/or Out of Bed No REE-([place]-St. Jeor-confined to bed) 1260.864 Kcal/Kg value to use for calculation 35 Approximate Energy Requirements Using 1523 kcal/Kg Calculation Used for Recommendations Kcal/kg Additional Notes Pro needs 1.2-1.5g/k-65g/ day Fluid needs 1ml/kcal Nutrition Intervention Goal #1 PO intake of meals plus ONS to meet 100% energy and pro needs Goal #2 Wt maintenance and/or gain Revisit per MD consult or patient Sign Off request:
[2020-04-27] MEDS: ENOXAPARIN 40 MG/0.4 ML INJ SUB-Q SCH (22:43)
[2020-04-27] MEDS ORDERED: guaiFENesin/CODEINE 100-10MG ORAL LIQD 5 ML PO PRN (23:37)
[2020-04-28] MEDS ORDERED: hydrALAZINE 20 MG/1 ML INJ IV ONE (06:12)
[2020-04-28] MEDS: GLYCOPYRROLATE 1 MG TAB PO SCH ×3 (09:00→21:41)
[2020-04-28] MEDS: FOLIC ACID 1 MG TAB PO SCH (09:53)
[2020-04-28] MEDS: SERTRALINE 50 MG TAB PO SCH (09:53)
[2020-04-28] MEDS: hydrOXYzine PAMOATE 25 MG CAP PO SCH ×2 (09:54→21:42)
[2020-04-28] MEDS: MIRTAZAPINE 30 MG TAB PO SCH (09:54)
[2020-04-28] MEDS: NICOTINE 21 MG/24 HR PATCH TD SCH (09:54)
[2020-04-28] MEDS: LANSOPRAZOLE 30 MG SOLUTAB FEEDTUBE SCH (09:54)
[2020-04-28] MEDS: levETIRAcetam 500 MG/5 ML ORAL LIQD PO SCH ×2 (09:54→21:42)
[2020-04-28] MEDS: QUEtiapine 100 MG TAB FEEDTUBE SCH ×2 (09:54→21:42)
--- NOTE | 2020-04-28 13:30 | Progress Note ---
Assessment and Plan - Patient Problems (1) Anoxic brain injury Current Visit: Yes Status: Acute Plan to address problem: Supportive care, continue current therapy. Aspiration precautions, seizure precautions. (2) Anoxic encephalopathy Current Visit: Yes Status: Acute Plan to address problem: Supportive care, aspiration precautions, seizure precautions, supportive care. (3) Acute respiratory failure Current Visit: Yes Status: Acute Qualifiers: Respiratory failure complication: hypoxia Qualified Code(s): J96.01 - Acute respiratory failure with hypoxia Plan to address problem: Patient is status post tracheostomy and PEG tube placement. Continue supplemental oxygen. (4) Seizure disorder Current Visit: Yes Status: Acute Plan to address problem: Continue Keppra therapy, seizure precautions, supportive care. (5) DVT prophylaxis Current Visit: Yes Status: Acute Plan to address problem: SCD to bilateral lower extremities while in bed, prophylactic Lovenox (6) Advance care planning Current Visit: Yes Status: Acute Plan to address problem: Patient is DNR, supportive care, discharge planning conducted, discussed with case management. +30 minutes. History Interval history: 55 YO Female HD #36 with TATIANA S/P Cardiac Arrest, Anoxic Encephalopathy, Severe Malnutrition, Acute/Chronic Respiratory Failure S/P Trach and Peg placement who is currently pending placement. Patient is resting comfortably in bed. No acute decompensation overnight. Patient status is unchanged since previous exam. No reported nursing events. Case management consulted for discharge pl anning/placement. Hospitalist Physical - Constitutional Vitals: Temp Pulse Resp BP Pulse Ox 97.2 F L 99 H 18 152/96 100 04/28/20 11:48 04/28/20 11:48 04/28/20 11:48 04/28/20 11:48 04/28/20 11:48 General appearance: Present: no acute distress, cachectic - EENT ENT: hearing decreased - Neck Neck: Present: supple - Respiratory Respiratory effort: labored Respiratory: bilateral: diminished - Cardiovascular Rhythm: regular Heart Sounds: Present: S1 & S2 - Extremities Extremities: no ischemia Extremity abnormal: edema Peripheral Pulses: within normal limits - Abdominal General gastrointestinal: soft, non-tender, non-distended - Psychiatric Psychiatric: no appropriate mood/affect, no intact judgment & insight - Neurologic Neurologic: focal deficits, no moves all extremities, no gait normal HEART Score - HEART Score Troponin: Troponin T < 0.010 ng/mL (0.00-0.029) 11/22/19 23:27 Results - Labs CBC & Chem 7: 04/16/20 09:02 04/16/20 05:00 Labs: Laboratory Last Values WBC 6.7 K/mm3 (4.5-11.0) 04/16/20 09:02 RBC 4.13 M/mm3 (3.65-5.03) 04/16/20 09:02 Hgb 11.8 gm/dl (10.1-14.3) 04/16/20 09:02 Hct 37.0 % (30.3-42.9) 04/16/20 09:02 MCV 90 fl (79-97) 04/16/20 09:02 MCH 29 pg (28-32) 04/16/20 09:02 MCHC 32 % (30-34) 04/16/20 09:02 RDW 14.3 % (13.2-15.2) 04/16/20 09:02 Plt Count 502 K/mm3 (140-440) H 04/16/20 09:02 Lymph % (Auto) 25.9 % (13.4-35.0) 04/16/20 09:02 Carter % (Auto) 7.4 % (0.0-7.3) H 04/16/20 09:02 Eos % (Auto) 0.9 % (0.0-4.3) 04/16/20 09:02 Baso % (Auto) 0.8 % (0.0-1.8) 04/16/20 09:02 Lymph # 1.7 K/mm3 (1.2-5.4) 04/16/20 09:02 Carter # 0.5 K/mm3 (0.0-0.8) 04/16/20 09:02 Eos # 0.1 K/mm3 (0.0-0.4) 04/16/20 09:02 Baso # 0.1 K/mm3 (0.0-0.1) 04/16/20 09:02 Add Manual Diff Complete 12/25/19 03:47 Total Counted 200 12/25/19 03:47 Seg Neutrophils % 65.0 % (40.0-70.0) 04/16/20 09:02 Seg Neuts % (Manual) 97.5 % (40.0-70.0) H 12/25/19 03:47 Band Neutrophils % 0 % 12/25/19 03:47 Lymphocytes % (Manual) 1.0 % (13.4-35.0) L 12/25/19 03:47 Reactive Lymphs % (Man) 0 % 12/25/19 03:47 Monocytes % (Manual) 1.5 % (0.0-7.3) 12/25/19 03:47 Eosinophils % (Manual) 0 % (0.0-4.3) 12/25/19 03:47 Basophils % (Manual) 0 % (0.0-1.8) 12/25/19 03:47 Metamyelocytes % 0 % 12/25/19 03:47 Myelocytes % 0 % 12/25/19 03:47 Promyelocytes % 0 % 12/25/19 03:47 Blast Cells % 0 % 12/25/19 03:47 Nucleated RBC % Not Reportable 12/25/19 03:47 Seg Neutrophils # 4.4 K/mm3 (1.8-7.7) 04/16/20 09:02 Seg Neutrophils # Man 35.3 K/mm3 (1.8-7.7) H 12/25/19 03:47 Band Neutrophils # 0.0 K/mm3 12/25/19 03:47 Lymphocytes # (Manual) 0.4 K/mm3 (1.2-5.4) L 12/25/19 03:47 Abs React Lymphs (Man) 0.0 K/mm3 12/25/19 03:47 Monocytes # (Manual) 0.5 K/mm3 (0.0-0.8) 12/25/19 03:47 Eosinophils # (Manual) 0.0 K/mm3 (0.0-0.4) 12/25/19 03:47 Basophils # (Manual) 0.0 K/mm3 (0.0-0.1) 12/25/19 03:47 Metamyelocytes # 0.0 K/mm3 12/25/19 03:47 Myelocytes # 0.0 K/mm3 12/25/19 03:47 Promyelocytes # 0.0 K/mm3 12/25/19 03:47 Blast Cells # 0.0 K/mm3 12/25/19 03:47 Pathologist Review 12/13/19 07:48 WBC Morphology Not Reportable 12/25/19 03:47 Hypersegmented Neuts Not Reportable 12/25/19 03:47 Hyposegmented Neuts Not Reportable 12/25/19 03:47 Hypogranular Neuts Not Reportable 12/25/19 03:47 Smudge Cells Not Reportable 12/25/19 03:47 Toxic Granulation Not Reportable 12/25/19 03:47 Toxic Vacuolation Not Reportable 12/25/19 03:47 Dohle Bodies Not Reportable 12/25/19 03:47 Pelger-Huet Anomaly Not Reportable 12/25/19 03:47 Dominique Rods Not Reportable 12/25/19 03:47 Platelet Estimate Consistent w auto 12/25/19 03:47 Clumped Platelets Not Reportable 12/25/19 03:47 Plt Clumps, EDTA Not Reportable 12/25/19 03:47 Large Platelets Not Reportable 12/25/19 03:47 Giant Platelets Not Reportable 12/25/19 03:47 Platelet Satelliting Not Reportable 12/25/19 03:47 Plt Morphology Comment Not Reportable 12/25/19 03:47 RBC Morphology Not Reportable 12/25/19 03:47 Dimorphic RBCs Not Reportable 12/25/19 03:47 Polychromasia Not Reportable 12/25/19 03:47 Hypochromasia Not Reportable 12/25/19 03:47 Poikilocytosis Not Reportable 12/25/19 03:47 Anisocytosis 1+ 12/25/19 03:47 Microcytosis Not Reportable 12/25/19 03:47 Macrocytosis Not Reportable 12/25/19 03:47 Spherocytes Not Reportable 12/25/19 03:47 Pappenheimer Bodies Not Reportable 12/25/19 03:47 Sickle Cells Not Reportable 12/25/19 03:47 Target Cells Not Reportable 12/25/19 03:47 Tear Drop Cells Not Reportable 12/25/19 03:47 Ovalocytes Not Reportable 12/25/19 03:47 Helmet Cells Not Reportable 12/25/19 03:47 Frias-Scurry Bodies Not Reportable 12/25/19 03:47 [place] Rings Not Reportable 12/25/19 03:47 Geismar Cells Not Reportable 12/25/19 03:47 Bite Cells Not Reportable 12/25/19 03:47 Crenated Cell Not Reportable 12/25/19 03:47 Elliptocytes Not Reportable 12/25/19 03:47 Acanthocytes (Spur) Not Reportable 12/25/19 03:47 Rouleaux Not Reportable 12/25/19 03:47 Hemoglobin C Crystals Not Reportable 12/25/19 03:47 Schistocytes Not Reportable 12/25/19 03:47 Malaria parasites Not Reportable 12/25/19 03:47 Gregg Bodies Not Reportable 12/25/19 03:47 Hem Pathologist Commnt No 12/25/19 03:47 PT 17.0 Sec. (12.2-14.9) H 11/23/19 03:47 INR 1.36 (0.87-1.13) H 11/23/19 03:47 APTT 128.2 Sec. (24.2-36.6) H* 11/23/19 03:47 Heparin Anti-Xa Level 0.31 U.I./ml (0.3-0.7) 11/23/19 09:03 ABG pH 7.433 pH Units (7.350-7.450) 03/08/20 13:25 ABG pCO2 40.2 mm Hg 03/08/20 13:25 ABG pO2 71.1 mm Hg (80.0-90.0) L 03/08/20 13:25 ABG HCO3 26.2 mmol/L (20.0-26.0) H 03/08/20 13:25 ABG O2 Saturation 97.0 % (95.0-99.0) 03/08/20 13:25 ABG O2 Content 11.0 (0.0-44) 03/08/20 13:25 ABG Base Excess 1.8 mmol/L (-2.0-3.0) 03/08/20 13:25 ABG Hemoglobin 8.2 gm/dl (12.0-16.0) L 03/08/20 13:25 ABG Carboxyhemoglobin 1.7 % (0.0-5.0) 03/08/20 13:25 ABG Methemoglobin 0.5 % (0.0-1.5) 03/08/20 13:25 Oxyhemoglobin 94.8 % (95.0-99.0) L 03/08/20 13:25 FiO2 21 % 03/08/20 13:25 Sodium 144 mmol/L (137-145) 04/16/20 05:00 Potassium 3.2 mmol/L (3.6-5.0) L 04/16/20 05:00 Chloride 107.4 mmol/L (98-107) H 04/16/20 05:00 Carbon Dioxide 23 mmol/L (22-30) 04/16/20 05:00 Anion Gap 17 mmol/L 04/16/20 05:00 BUN 16 mg/dL (7-17) 04/16/20 05:00 Creatinine 0.4 mg/dL (0.7-1.2) L 04/16/20 05:00 Estimated GFR > 60 ml/min 04/16/20 05:00 BUN/Creatinine Ratio 40 % 04/16/20 05:00 Glucose 73 mg/dL (65-100) 04/16/20 05:00 POC Glucose 172 (70-105) H 04/24/20 18:35 Lactic Acid 1.80 mmol/L (0.7-2.0) 11/25/19 05:05 Calcium 10.0 mg/dL (8.4-10.2) 04/16/20 05:00 Ionized Calcium 4.5 mg/dL (4.8-5.6) L 11/23/19 06:32 Phosphorus 4.20 mg/dL (2.5-4.5) D 11/28/19 08:59 Magnesium 1.90 mg/dL (1.7-2.3) 02/28/20 03:40 Total Bilirubin 0.40 mg/dL (0.1-1.2) 12/13/19 07:48 AST 27 units/L (5-40) 12/13/19 07:48 ALT 26 units/L (7-56) 12/13/19 07:48 Alkaline Phosphatase 316 units/L (35-129) H 12/13/19 07:48 Ammonia 42.0 umol/L (25-60) 11/29/19 13:41 Total Creatine Kinase 139 units/L (30-135) H 11/22/19 23:27 CK-MB (CK-2) 8.3 ng/mL (0.0-4.0) H 11/22/19 23:27 CK-MB (CK-2) Rel Index 5.9 (0-4) H 11/22/19 23:27 Troponin T < 0.010 ng/mL (0.00-0.029) 11/22/19 23:27 Total Protein 6.8 g/dL (6.3-8.2) 12/13/19 07:48 Albumin 2.4 g/dL (3.9-5) L 12/13/19 07:48 Albumin/Globulin Ratio 0.5 % 12/13/19 07:48 Lipase 18 units/L (13-60) 11/23/19 00:34 Procalcitonin 1.09 ng/mL (<0.15) 11/23/19 04:53 TSH 1.010 mlU/mL (0.270-4.200) 02/12/20 07:36 Free T4 1.08 ng/dL (0.76-1.46) 02/12/20 07:36 Urine Color Yellow (Yellow) 12/16/19 Unknown Urine Turbidity Slightly-cloudy (Clear) 12/16/19 Unknown Urine pH 5.0 (5.0-7.0) 12/16/19 Unknown Ur Specific [place] 1.018 (1.003-1.030) 12/16/19 Unknown Urine Protein 30 mg/dl mg/dL (Negative) 12/16/19 Unknown Urine Glucose (UA) Neg mg/dL (Negative) 12/16/19 Unknown Urine Ketones Neg mg/dL (Negative) 12/16/19 Unknown Urine Blood Sm (Negative) 12/16/19 Unknown Urine Nitrite Neg (Negative) 12/16/19 Unknown Urine Bilirubin Neg (Negative) 12/16/19 Unknown Urine Urobilinogen < 2.0 mg/dL (<2.0) 12/16/19 Unknown Ur Leukocyte Esterase Neg (Negative) 12/16/19 Unknown Urine WBC (Auto) 6.0 /HPF (0.0-6.0) 12/16/19 Unknown Urine RBC (Auto) 9.0 /HPF (0.0-6.0) 12/16/19 Unknown U Epithel Cells (Auto) < 1.0 /HPF (0-13.0) 12/16/19 Unknown Urine Bacteria (Auto) 2+ /HPF (Negative) 11/22/19 23:17 Hyaline Casts 3 /LPF 12/16/19 Unknown Granular Casts 3 /LPF 12/16/19 Unknown Urine Mucus Few /HPF 12/16/19 Unknown Vancomycin Trough 33.8 ug/mL (5.0-20.0) H 12/21/19 08:56 Random Vancomycin 16.2 ug/mL (0-40.0) 12/24/19 04:31 Salicylates < 0.3 mg/dL (2.8-20.0) L 11/22/19 23:27 Urine Opiates Screen Presumptive negative 11/22/19 23:17 Urine Methadone Screen Presumptive negative 11/22/19 23:17 Acetaminophen < 5.0 ug/mL (10.0-30.0) L 11/22/19 23:27 Ur Barbiturates Screen Presumptive negative 11/22/19 23:17 Ur Phencyclidine Scrn Presumptive negative 11/22/19 23:17 Ur Amphetamines Screen Presumptive negative 11/22/19 23:17 U Benzodiazepines Scrn Presumptive negative 11/22/19 23:17 Urine Cocaine Screen Presumptive negative 11/22/19 23:17 U Marijuana (THC) Screen Presumptive negative 11/22/19 23:17 Drugs of Abuse Note Disclamer 11/22/19 23:17 Plasma/Serum Alcohol 0.08 % (0-0.07) H 11/22/19 23:27 Coronavirus (PCR) Negative (Negative) 02/05/20 07:50 Hepatitis A IgM Ab Non-reactive (NonReactive) 11/23/19 01:19 Hep Bs Antigen Non-reactive (Negative) 11/23/19 01:19 Hep B Core IgM Ab Non-reactive (NonReactive) 11/23/19 01:19 Hepatitis C Antibody Non-reactive (NonReactive) 11/23/19 01:19 Blood Type O POSITIVE 12/21/19 14:54 Antibody Screen Negative 12/21/19 14:54 Crossmatch See Detail 12/21/19 14:54 - Diagnostic Impressions Diagnostic Impressions: Echocardiogram 11/23/19 03:58 Transthoracic Echocardiogram Indication: Cardiac arrest BP: 131/89 HR: 115 Conclusions *The study quality is technically difficult. *Global left ventricular wall motion and contractility are within normal limits. *The estimated ejection fraction is 55-60%. *Abnormal left ventricular diastolic filling is observed, consistent with impaired relaxation. *There is no pericardial effusion. Findings Procedure Info: The study quality is technically difficult. The study was technically limited due to the patient's inability to lay in the left lateral decubitus position. Left Ventricle: The left ventricular chamber size is normal. There is no left ventricular hypertrophy. Global left ventricular wall motion and contractility are within normal limits. Global left ventricular systolic function is normal. The estimated ejection fraction is 55-60%. Abnormal left ventricular diastolic filling is observed, consistent with impaired relaxation. Left Atrium: The left atrial chamber size is normal. Aortic Valve: The aortic valve leaflets are mildly thickened. Mitral Valve: The mitral valve leaflets are mildly thickened. There is no evidence of mitral regurgitation. Tricuspid Valve: The tricuspid valve leaflets are normal. There is trace tricuspid regurgitation. The right ventricular systolic pressure is calculated at 33 mmHg. Pulmonic Valve: The pulmonic valve appears normal. Pericardium: The pericardium appears normal. There is no pericardial effusion. Aorta: The aorta appears normal. Venous: The inferior vena cava appears normal in size. Measurements Chambers 2D Name Value Normal Range IVSd (2D) 0.94 cm (0.6 - 1.1) LVPWd (2D) 0.81 cm (0.6 - 1.1) LVIDd (2D) 3.6 cm (3.7 - 5.6) LVIDs (2D) 2.27 cm (2 - 3.8) LV FS (2D) 36.93 % - EF Teichholz (2D) 67.76 % - Ao root diameter (2D) 3.03 cm (2 - 3.7) Volumes/Mass Name Value Normal Range LA ESV SP 4CH (A/L) 16.89 ml - LA ESV SP 4CH (MOD) 15.52 ml - Diastolic/Systolic Function Name Value Normal Range MV E-wave Vmax 0.55 m/sec - MV deceleration time 200.89 msec - MV A-wave Vmax 0.68 m/sec - MV E:A ratio 0.82 ratio - Aortic Valve Name Value Normal Range AV Vmax 1.1 m/sec - AV VTI 15.9 cm - AV peak gradient 4.86 mmHg - AV mean gradient 2.59 mmHg - LVOT diameter 2 cm - LVOT Vmax 1.03 m/sec - LVOT VTI 15.87 cm - LVOT peak gradient 4.24 mmHg - LVOT mean gradient 2.41 mmHg - SV LVOT 49.77 ml - JOSÉ MIGUEL (continuity Vmax) 2.93 cm2 - JOSÉ MIGUEL (continuity VTI) 3.13 cm2 - Tricuspid Valve Name Value Normal Range TR Vmax 2.74 m/sec - TR peak gradient 303 mmHg - RAP 3 mmHg - RVSP 33 mmHg - IVC diameter 1.77 cm (1.2 - 2.3) Pulmonic Valve/Qp:Qs Name Value Normal Range PV Vmax 0.77 m/sec - PV peak gradient 2.4 mmHg - PV acceleration time 114.18 msec - Echocardiogram Limited Views 12/17/19 14:53 Transthoracic Echocardiogram Indication: R/O Vegetations BP: 144/83 HR: 133 Conclusions *Global left ventricular systolic function is mildly decreased. *The estimated ejection fraction is 45-50%. *A trivial pericardial effusion is visualized. Findings Left Ventricle: The left ventricular chamber size is normal. Global left ventricular systolic function is mildly decreased. The estimated ejection fraction is 45-50%. Left Atrium: The left atrial chamber size is normal. Right Ventricle: The right ventricular cavity size is normal. Right Atrium: The right atrial cavity size is normal. Aortic Valve: The aortic valve is not well visualized. There is no evidence of aortic regurgitation. Mitral Valve: The mitral valve leaflets are mildly thickened. There is trace of mitral regurgitation. Tricuspid Valve: The tricuspid valve leaflets are mildly thickened. There is trace tricuspid regurgitation. The right ventricular systolic pressure is calculated at 29 mmHg. Pulmonic Valve: The pulmonic valve is not well visualized. There is no evidence of pulmonic regurgitation. Pericardium: A trivial pericardial effusion is visualized. Aorta: There is no dilatation of the ascending aorta. There is no dilatation of the aortic root. Venous: The inferior vena cava appears normal in size. There is a greater than 50% respiratory change in the inferior vena cava dimension. Measurements Chambers 2D Name Value Normal Range IVSd (2D) 0.83 cm (0.6 - 1.1) LVPWd (2D) 0.98 cm (0.6 - 1.1) LVIDd (2D) 3.71 cm (3.7 - 5.6) LVIDs (2D) 2.93 cm (2 - 3.8) LV FS (2D) 21.12 % - EF Teichholz (2D) 43.71 % - Ao root diameter (2D) 3.02 cm (2 - 3.7) Volumes/Mass Name Value Normal Range LA ESV SP 4CH (A/L) 36.8 ml - LA ESV SP 2CH (A/L) 45.89 ml - LA ESV BP (A/L) 42.35 ml - LA ESV BP (A/L) index 26.63 ml/m2 - LA ESV SP 4CH (MOD) 34.42 ml - LA ESV SP 2CH (MOD) 44.21 ml - LA ESV BP (MOD) 39.82 ml - LA ESV BP (MOD) index 25.05 ml/m2 - Aortic Valve Name Value Normal Range LVOT diameter 1.63 cm - Tricuspid Valve Name Value Normal Range TR Vmax 2.56 m/sec - TR peak gradient 26 mmHg - RAP 3 mmHg - RVSP 29 mmHg - IVC diameter 1.83 cm (1.2 - 2.3) [place]/IV: Voiding Method Incontinent IV Catheter Type [Forearm] Peripheral IV IV Catheter Type [Left Forearm INT / Saline Lock ] IV Catheter Type [Right INT / Saline Lock Antecubital] IV Catheter Type [Right Hand] INT / Saline Lock IV Catheter Type [Right Wrist] Peripheral IV IV Catheter Type [Left Wrist] Peripheral IV IV Catheter Type [Left Peripheral IV Antecubital] IV Catheter Type [Right INT / Saline Lock Forearm] IV Catheter Type [Left Hand] INT / Saline Lock Active Medications - Current Medications Current Medications: Generic Name Dose Route Start Last Admin Trade Name Freq PRN Reason Stop Dose Admin Albuterol 2.5 mg 03/25/20 19:25 04/07/20 08:59 Proventil IH 2.5 mg Q4HRT PRN Administration Shortness Of Breath Lipase/Protease/Amylase 1 each 11/23/19 11:50 Pancreaze 10,500 Unit FEEDTUBE PRN PRN Use w/ sod bicarb for FT Bisacodyl 10 mg 02/06/20 13:57 Dulcolax MN QDAY PRN Constipation unrelieved by MOM Enoxaparin Sodium 40 mg 03/07/20 22:00 04/27/20 22:43 Enoxaparin SUB-Q 40 mg QDAY@2200 LUCHO Administration Folic Acid 1 mg 04/27/20 10:00 04/28/20 09:53 Folvite PO 1 mg QDAY LUCHO Administration Glycopyrrolate 2 mg 12/31/19 20:00 04/28/20 13:23 Robinul PO 2 mg TID LUCHO Administration Guaifenesin 10 ml 04/28/20 05:11 Guaifenesin Dm Syrup PO Q6H PRN Cough Haloperidol Lactate 5 mg 03/05/20 09:22 04/26/20 11:52 Haldol IM 5 mg Q6H PRN Administration Agitation Hydroxyzine Pamoate 25 mg 12/06/19 10:00 04/28/20 09:54 Vistaril PO 25 mg BID LUCHO Administration Lansoprazole 30 mg 11/27/19 10:00 04/28/20 09:54 Prevacid Solutab FEEDTUBE 30 mg QDAY LUCHO Administration Levetiracetam 500 mg 11/29/19 10:00 04/28/20 09:54 Keppra PO 500 mg BID LUCHO Administration Mirtazapine 30 mg 12/06/19 10:00 04/28/20 09:54 Remeron PO 30 mg DAILY LUCHO Administration Nicotine 21 mg 02/16/20 13:00 04/28/20 09:54 Habitrol TD 21 mg QDAY LUCHO Administration Ondansetron HCl 4 mg 12/10/19 07:53 02/25/20 02:51 Zofran IV 4 mg Q4H PRN Administration Nausea And Vomiting Polyethylene Glycol 17 gm 02/06/20 13:57 Miralax 3350 PO QDAY PRN Constipation Quetiapine Fumarate 100 mg 03/06/20 10:00 04/28/20 09:54 Seroquel FEEDTUBE 100 mg BID LUCHO Administration Scopolamine 1 each 02/08/20 15:00 04/26/20 09:06 Transderm-Scop TD 1 each Q3D LUCHO Administration Sertraline HCl 25 mg 01/01/20 10:00 04/28/20 09:53 Zoloft PO 25 mg QDAY LUCHO Administration Simple Syrup 15 ml 11/23/19 11:50 Simple Syrup FEEDTUBE PRN PRN Hypoglycemia BG<70 Simple Syrup 30 ml 11/23/19 11:50 Simple Syrup FEEDTUBE PRN PRN Hypoglycemia Sodium Bicarbonate 325 mg 11/23/19 11:50 Sodium Bicarbonate FEEDTUBE PRN PRN For Clogged Feeding Tube Nutrition/Malnutrition Assess - Dietary Evaluation Nutrition/Malnutrition Findings: Nutrition Notes Start: 11/23/19 11:29 Freq: Status: Active Protocol: Document 04/23/20 14:33 EVELIA (Rec: 04/23/20 14:35 EVELIA ALLEN-PAMELA [email or web address]) Nutrition Notes Initial or Follow up Reassessment Other Pertinent Diagnosis s/p Cardiac arrest, acute metabolic encephalopathy Current Diet Mech soft with chopped meats Labs/Tests Reviewed Pertinent Medications Reviewed Height 5 ft 6 in Weight 43.5 kg [place] Body Weight (kg) 59.09 BMI 15.5 Subjective/Other Information Pt has consumed 79% of meals since last assessment. Percent of energy/protein needs met: 100% energy 100% pro Burn Absent Trauma Absent Current % PO Good (75-100%) #2 Nutrition Diagnosis Malnutrition Diagnosis Progress(for reassessment Continues documentation) Is patient on ventilator? No Is Patient Ambulatory and/or Out of Bed No REE-([facility]-confined to bed) 1260.864 Kcal/Kg value to use for calculation 35 Approximate Energy Requirements Using 1523 kcal/Kg Calculation Used for Recommendations Kcal/kg Additional Notes Pro needs 1.2-1.5g/k-65g/ day Fluid needs 1ml/kcal Nutrition Intervention Goal #1 PO intake of meals plus ONS to meet 100% energy and pro needs Goal #2 Wt maintenance and/or gain Revisit per MD consult or patient Sign Off request:
[2020-04-28] MEDS: guaiFENesin DM 200/20 MG ORAL LIQD 10 ML PO PRN (21:41)
[2020-04-28] MEDS: ENOXAPARIN 40 MG/0.4 ML INJ SUB-Q SCH (21:42)
[2020-04-29] MEDS: GLYCOPYRROLATE 1 MG TAB PO SCH ×3 (08:00→21:24)
[2020-04-29] MEDS: NICOTINE 21 MG/24 HR PATCH TD SCH (10:11)
[2020-04-29] MEDS: levETIRAcetam 500 MG/5 ML ORAL LIQD PO SCH ×2 (10:11→21:25)
[2020-04-29] MEDS: LANSOPRAZOLE 30 MG SOLUTAB FEEDTUBE SCH (10:11)
[2020-04-29] MEDS: FOLIC ACID 1 MG TAB PO SCH (10:12)
[2020-04-29] MEDS: SERTRALINE 50 MG TAB PO SCH (10:12)
[2020-04-29] MEDS: QUEtiapine 100 MG TAB FEEDTUBE SCH ×2 (10:12→21:26)
[2020-04-29] MEDS: MIRTAZAPINE 30 MG TAB PO SCH (10:12)
[2020-04-29] MEDS: hydrOXYzine PAMOATE 25 MG CAP PO SCH ×2 (10:12→21:25)
[2020-04-29] MEDS: SCOPOLAMINE TRANSDERMAL PATCH 72 HR TD SCH (10:13)
[2020-04-29] MEDS: ENOXAPARIN 40 MG/0.4 ML INJ SUB-Q SCH (21:25)
[2020-04-29] MEDS: HALOPERIDOL LACTATE 5 MG/1 ML INJ IM PRN (21:25)
--- NOTE | 2020-04-30 09:22 | Progress Note ---
Assessment and Plan Assessment and plan: 54-year-old female with a past medical history of Hypertension, Depression, Tobacco use Disorder, Alcohol use Disorder as confirmed by Daughter and pt's mother presents to the hospital status post cardiac arrest at home. EMS found pt in [facility]. They were unable to intubate patient with a ET tube because she was clenching down therefore Joe airway placed. Per the ED physician who evaluated pt, Patient presented with a pulse, intermittent respirations, and bagging support via Joe airway with O2 sat of 100%. Accu-Chek of 71 obtained by EMS. She was intubated in the ER and called for admission. Following admission patient was diagnosed with anoxic brain injury, sepsis with MRSA bacteremia and MSSA pneumonia, alcoholic liver disease. Family member initially wished for full code then changed to DNR, patient treated with IV antibiotics for sepsis, status post trach and PEG on 12/13/19. Weaned off from the vent and put on T- piece. Patient is uninsured, waiting for placement, guarded prognosis. 03/07: Returning to service no acute changes are noted. Continue current management while awaiting placement. Intermittent labs. Base of neck also around tracheostomy tube preventing downgrading. Continue appropriate wound care. 03/08: Plan of care unchanged continues on aerosol trach collar 28% of oxygen. Continue wound care management placement still pending status decision. 03/09: Continue current treatment plan. Continue aspiration precaution 03/10: Continue current management, Restraints as patient still pulling, awaiting placement 03/11: Continue supportive care, intermittent suctioning and pulmonary toilet. awaiting placement. 03/12: Continue supportive care, Give a bolus of fluids due to Hypercalcemia, Monitor Hyperkalemia with labs in am, No arrhythmia. Patient vomiting, concern for aspiration, Chest xray ordered and no active disease noted. Keep HOB >45% 03/13: No evidence of aspiration on xray. Continue supportive care. 03/14: Continue supportive care. Capping trials to start. Discussed with patients nursing and case management to continue daily PT by the Rehab team. 03/15: Discussed again with staff to start capping trial. 03/16: Do not see any indication the capping trial has started will discuss with respiratory therapist. Continue restraints. Still awaiting family decision patient has had some remarkable improvement considering the fact that she was able to stay around night without restraints. We will continue daily trial of this method. Discussed plan with nursing staff 03/17: Continue current care. Currently continue restraints. Continue current management. Continue physical therapy daily. 03/18: Capping trial successful and will possibly get decannulated today. Continue placement. 03/19: Now decannulated and doing well. Begin discharge planning. 03/20: Stable, no new complaints. 03/21: No new complaints. Continue supportive 03/22: No new complaints, still with some confusion, and agitation requiring restraints. Will require daily PT/OT and continue to work with Case management for placement 03/23: continue current management, daily PT/OT. stoma care. No new seizure, slow but gradual improvement noted daily 03/24: Mr. Amaya is a 55-year-old female who presented to the hospital was admitted post cardiac arrest at home she has remarkably done well been extubated and decannulated with stoma healing. She still does experience some intermittent delirious process and as a result is on restraints. I have discussed with nursing staff to see if they can provide a sitter for her and continue daily PT as this will aid in reintroducing her to the community. Case management is working on placement for her. Will check labs in a.m. 04/29: Returning to services, please see other notes. Patient stable and continues to improve. STILL WITH ALTERED MENTAL STATUS, SHE STILL REQUIRES RESTRAINTS, CASE MANAGEMENT WORKING ON PLACEMENT 04/30: Clinically stable continue to monitor still with altered sensorium still awaiting placement. Will check intermittent labs. / Anoxic brain injury: suspected CT head: No acute abnormality. EEG ordered showed Generalized slowing. No seizures or epileptiform activity. -Patient now opening her eyes, can speak and able to follow command -As needed haldol for agitation /Acute Respiratory failure -due to MSSA PNA -s/p intubation, s/p trach and PEG on 12/12 with mechanical ventilation, now on T-piece - CTA was done and negative for PE, - Echo quality is poor, showed diastolic dysfunction - continue weaning as tolerated -Continue appropriate and adequate tracheostomy care /Tracheostomy site ulceration -Continue appropriate wound management try to keep area dry. /Anemia, microcytic - Status post 3 units PRBC transfusion, H&H low stable /Acute metabolic encephalopathy/toxic encephalopathy due to the above - cont supportive care /Hyperammonemia - likely from liver disease related to EtOH abuse - Patient had elevated ammonia level and treated with lactulose /Metabolic Acidosis -Alcohol ketoacidosis vs hypoprofusion -Continue to monitor /ELevated LFTs, stable now - due to ischemic hepatitis. /Leucocytosis with sepsis - Source MRSA bacteremia and MSSA pneumonia. UA showed pyuria. RUQ US showed no ascites. - Repeat TTE negative for vegetation. Completed 7 days of Ceftriaxone on 11/29/2019. -Treated with Abx vancomycin 1 gm IV q 12 hour total 2 week till 12/30/2019 /Severe protein calorie malnutrition Dietitian consult to assist in management. /MSSA pneumonia: Status post vancomycin till 12/30/2019 /Alcohol use Disorder - given ongoing Alcohol use almost daily, s/p IV Thiamine - monitor /Severe hypokalemia -Repleted /Seizure disorder: treat with Keppra /H. Influenzae, tracheobronchitis, treated with abx /Moderate to severe fecal impaction - will add stool softner DNR CODE STATUS Disposition: prognosis guarded. Family okay for DNR, PT recommended subacute rehab, discharge pending on placement. Negative for COVID 19 History Interval history: Patient seen and examined, resting comfortable. No new complaints. Hospitalist Physical - Physical exam Narrative exam: General appearance: Present: Appears older than stated age, lying down - EENT Eyes: no scleral icterus, no conjunctival injection, pupil not reactive ENT: clear oral mucosa, dentition normal, no oropharyngeal erythema Ears: bilateral: normal - Neck Neck: stoma clena and dry - Respiratory Respiratory effort: other dressing over the stoma Respiratory: bilateral: rales - Cardiovascular Rhythm: regular Heart Sounds: Present: S1 & S2. Absent: gallop, rub Extremities: pulses intact, No edema, normal color - Gastrointestinal General gastrointestinal: Present: soft, non-tender, non-distended, normal bowel sounds - Integumentary Integumentary: clear, warm, dry - Musculoskeletal Musculoskeletal: No joint swelling or tenderness - Neurologic Neurologic: other (2+ reflexes throughout). respond to commend answers questions appropriately today - Psychiatric Psychiatric: co-operative - Constitutional Vitals: Temp Pulse Resp BP Pulse Ox 98.3 F 71 20 159/89 92 04/30/20 03:55 04/30/20 03:55 04/30/20 03:55 04/30/20 03:54 04/30/20 03:55 General appearance: Present: no acute distress, cachectic HEART Score - HEART Score Troponin: Troponin T < 0.010 ng/mL (0.00-0.029) 11/22/19 23:27 Results - Labs CBC & Chem 7: 04/16/20 09:02 04/16/20 05:00 Labs: Laboratory Last Values WBC 6.7 K/mm3 (4.5-11.0) 04/16/20 09:02 RBC 4.13 M/mm3 (3.65-5.03) 04/16/20 09:02 Hgb 11.8 gm/dl (10.1-14.3) 04/16/20 09:02 Hct 37.0 % (30.3-42.9) 04/16/20 09:02 MCV 90 fl (79-97) 04/16/20 09:02 MCH 29 pg (28-32) 04/16/20 09:02 MCHC 32 % (30-34) 04/16/20 09:02 RDW 14.3 % (13.2-15.2) 04/16/20 09:02 Plt Count 502 K/mm3 (140-440) H 04/16/20 09:02 Lymph % (Auto) 25.9 % (13.4-35.0) 04/16/20 09:02 [place] % (Auto) 7.4 % (0.0-7.3) H 04/16/20 09:02 Eos % (Auto) 0.9 % (0.0-4.3) 04/16/20 09:02 Baso % (Auto) 0.8 % (0.0-1.8) 04/16/20 09:02 Lymph # 1.7 K/mm3 (1.2-5.4) 04/16/20 09:02 [place] # 0.5 K/mm3 (0.0-0.8) 04/16/20 09:02 Eos # 0.1 K/mm3 (0.0-0.4) 04/16/20 09:02 Baso # 0.1 K/mm3 (0.0-0.1) 04/16/20 09:02 Add Manual Diff Complete 12/25/19 03:47 Total Counted 200 12/25/19 03:47 Seg Neutrophils % 65.0 % (40.0-70.0) 04/16/20 09:02 Seg Neuts % (Manual) 97.5 % (40.0-70.0) H 12/25/19 03:47 Band Neutrophils % 0 % 12/25/19 03:47 Lymphocytes % (Manual) 1.0 % (13.4-35.0) L 12/25/19 03:47 Reactive Lymphs % (Man) 0 % 12/25/19 03:47 Monocytes % (Manual) 1.5 % (0.0-7.3) 12/25/19 03:47 Eosinophils % (Manual) 0 % (0.0-4.3) 12/25/19 03:47 Basophils % (Manual) 0 % (0.0-1.8) 12/25/19 03:47 Metamyelocytes % 0 % 12/25/19 03:47 Myelocytes % 0 % 12/25/19 03:47 Promyelocytes % 0 % 12/25/19 03:47 Blast Cells % 0 % 12/25/19 03:47 Nucleated RBC % Not Reportable 12/25/19 03:47 Seg Neutrophils # 4.4 K/mm3 (1.8-7.7) 04/16/20 09:02 Seg Neutrophils # Man 35.3 K/mm3 (1.8-7.7) H 12/25/19 03:47 Band Neutrophils # 0.0 K/mm3 12/25/19 03:47 Lymphocytes # (Manual) 0.4 K/mm3 (1.2-5.4) L 12/25/19 03:47 Abs React Lymphs (Man) 0.0 K/mm3 12/25/19 03:47 Monocytes # (Manual) 0.5 K/mm3 (0.0-0.8) 12/25/19 03:47 Eosinophils # (Manual) 0.0 K/mm3 (0.0-0.4) 12/25/19 03:47 Basophils # (Manual) 0.0 K/mm3 (0.0-0.1) 12/25/19 03:47 Metamyelocytes # 0.0 K/mm3 12/25/19 03:47 Myelocytes # 0.0 K/mm3 12/25/19 03:47 Promyelocytes # 0.0 K/mm3 12/25/19 03:47 Blast Cells # 0.0 K/mm3 12/25/19 03:47 Pathologist Review 12/13/19 07:48 WBC Morphology Not Reportable 12/25/19 03:47 Hypersegmented Neuts Not Reportable 12/25/19 03:47 Hyposegmented Neuts Not Reportable 12/25/19 03:47 Hypogranular Neuts Not Reportable 12/25/19 03:47 Smudge Cells Not Reportable 12/25/19 03:47 Toxic Granulation Not Reportable 12/25/19 03:47 Toxic Vacuolation Not Reportable 12/25/19 03:47 Dohle Bodies Not Reportable 12/25/19 03:47 Pelger-Huet Anomaly Not Reportable 12/25/19 03:47 Dominique Rods Not Reportable 12/25/19 03:47 Platelet Estimate Consistent w auto 12/25/19 03:47 Clumped Platelets Not Reportable 12/25/19 03:47 Plt Clumps, EDTA Not Reportable 12/25/19 03:47 Large Platelets Not Reportable 12/25/19 03:47 Giant Platelets Not Reportable 12/25/19 03:47 Platelet Satelliting Not Reportable 12/25/19 03:47 Plt Morphology Comment Not Reportable 12/25/19 03:47 RBC Morphology Not Reportable 12/25/19 03:47 Dimorphic RBCs Not Reportable 12/25/19 03:47 Polychromasia Not Reportable 12/25/19 03:47 Hypochromasia Not Reportable 12/25/19 03:47 Poikilocytosis Not Reportable 12/25/19 03:47 Anisocytosis 1+ 12/25/19 03:47 Microcytosis Not Reportable 12/25/19 03:47 Macrocytosis Not Reportable 12/25/19 03:47 Spherocytes Not Reportable 12/25/19 03:47 Pappenheimer Bodies Not Reportable 12/25/19 03:47 Sickle Cells Not Reportable 12/25/19 03:47 Target Cells Not Reportable 12/25/19 03:47 Tear Drop Cells Not Reportable 12/25/19 03:47 Ovalocytes Not Reportable 12/25/19 03:47 Helmet Cells Not Reportable 12/25/19 03:47 [place] Bodies Not Reportable 12/25/19 03:47 [place] Rings Not Reportable 12/25/19 03:47 Jamshid Cells Not Reportable 12/25/19 03:47 Bite Cells Not Reportable 12/25/19 03:47 Crenated Cell Not Reportable 12/25/19 03:47 Elliptocytes Not Reportable 12/25/19 03:47 Acanthocytes (Spur) Not Reportable 12/25/19 03:47 Rouleaux Not Reportable 12/25/19 03:47 Hemoglobin C Crystals Not Reportable 12/25/19 03:47 Schistocytes Not Reportable 12/25/19 03:47 Malaria parasites Not Reportable 12/25/19 03:47 Gregg Bodies Not Reportable 12/25/19 03:47 Hem Pathologist Commnt No 12/25/19 03:47 PT 17.0 Sec. (12.2-14.9) H 11/23/19 03:47 INR 1.36 (0.87-1.13) H 11/23/19 03:47 APTT 128.2 Sec. (24.2-36.6) H* 11/23/19 03:47 Heparin Anti-Xa Level 0.31 U.I./ml (0.3-0.7) 11/23/19 09:03 ABG pH 7.433 pH Units (7.350-7.450) 03/08/20 13:25 ABG pCO2 40.2 mm Hg 03/08/20 13:25 ABG pO2 71.1 mm Hg (80.0-90.0) L 03/08/20 13:25 ABG HCO3 26.2 mmol/L (20.0-26.0) H 03/08/20 13:25 ABG O2 Saturation 97.0 % (95.0-99.0) 03/08/20 13:25 ABG O2 Content 11.0 (0.0-44) 03/08/20 13:25 ABG Base Excess 1.8 mmol/L (-2.0-3.0) 03/08/20 13:25 ABG Hemoglobin 8.2 gm/dl (12.0-16.0) L 03/08/20 13:25 ABG Carboxyhemoglobin 1.7 % (0.0-5.0) 03/08/20 13:25 ABG Methemoglobin 0.5 % (0.0-1.5) 03/08/20 13:25 Oxyhemoglobin 94.8 % (95.0-99.0) L 03/08/20 13:25 FiO2 21 % 03/08/20 13:25 Sodium 144 mmol/L (137-145) 04/16/20 05:00 Potassium 3.2 mmol/L (3.6-5.0) L 04/16/20 05:00 Chloride 107.4 mmol/L (98-107) H 04/16/20 05:00 Carbon Dioxide 23 mmol/L (22-30) 04/16/20 05:00 Anion Gap 17 mmol/L 04/16/20 05:00 BUN 16 mg/dL (7-17) 04/16/20 05:00 Creatinine 0.4 mg/dL (0.7-1.2) L 04/16/20 05:00 Estimated GFR > 60 ml/min 04/16/20 05:00 BUN/Creatinine Ratio 40 % 04/16/20 05:00 Glucose 73 mg/dL (65-100) 04/16/20 05:00 POC Glucose 172 (70-105) H 04/24/20 18:35 Lactic Acid 1.80 mmol/L (0.7-2.0) 11/25/19 05:05 Calcium 10.0 mg/dL (8.4-10.2) 04/16/20 05:00 Ionized Calcium 4.5 mg/dL (4.8-5.6) L 11/23/19 06:32 Phosphorus 4.20 mg/dL (2.5-4.5) D 11/28/19 08:59 Magnesium 1.90 mg/dL (1.7-2.3) 02/28/20 03:40 Total Bilirubin 0.40 mg/dL (0.1-1.2) 12/13/19 07:48 AST 27 units/L (5-40) 12/13/19 07:48 ALT 26 units/L (7-56) 12/13/19 07:48 Alkaline Phosphatase 316 units/L (35-129) H 12/13/19 07:48 Ammonia 42.0 umol/L (25-60) 11/29/19 13:41 Total Creatine Kinase 139 units/L (30-135) H 11/22/19 23:27 CK-MB (CK-2) 8.3 ng/mL (0.0-4.0) H 11/22/19 23:27 CK-MB (CK-2) Rel Index 5.9 (0-4) H 11/22/19 23:27 Troponin T < 0.010 ng/mL (0.00-0.029) 11/22/19 23:27 Total Protein 6.8 g/dL (6.3-8.2) 12/13/19 07:48 Albumin 2.4 g/dL (3.9-5) L 12/13/19 07:48 Albumin/Globulin Ratio 0.5 % 12/13/19 07:48 Lipase 18 units/L (13-60) 11/23/19 00:34 Procalcitonin 1.09 ng/mL (<0.15) 11/23/19 04:53 TSH 1.010 mlU/mL (0.270-4.200) 02/12/20 07:36 Free T4 1.08 ng/dL (0.76-1.46) 02/12/20 07:36 Urine Color Yellow (Yellow) 12/16/19 Unknown Urine Turbidity Slightly-cloudy (Clear) 12/16/19 Unknown Urine pH 5.0 (5.0-7.0) 12/16/19 Unknown Ur Specific [place] 1.018 (1.003-1.030) 12/16/19 Unknown Urine Protein 30 mg/dl mg/dL (Negative) 12/16/19 Unknown Urine Glucose (UA) Neg mg/dL (Negative) 12/16/19 Unknown Urine Ketones Neg mg/dL (Negative) 12/16/19 Unknown Urine Blood Sm (Negative) 12/16/19 Unknown Urine Nitrite Neg (Negative) 12/16/19 Unknown Urine Bilirubin Neg (Negative) 12/16/19 Unknown Urine Urobilinogen < 2.0 mg/dL (<2.0) 12/16/19 Unknown Ur Leukocyte Esterase Neg (Negative) 12/16/19 Unknown Urine WBC (Auto) 6.0 /HPF (0.0-6.0) 12/16/19 Unknown Urine RBC (Auto) 9.0 /HPF (0.0-6.0) 12/16/19 Unknown U Epithel Cells (Auto) < 1.0 /HPF (0-13.0) 12/16/19 Unknown Urine Bacteria (Auto) 2+ /HPF (Negative) 11/22/19 23:17 Hyaline Casts 3 /LPF 12/16/19 Unknown Granular Casts 3 /LPF 12/16/19 Unknown Urine Mucus Few /HPF 12/16/19 Unknown Vancomycin Trough 33.8 ug/mL (5.0-20.0) H 12/21/19 08:56 Random Vancomycin 16.2 ug/mL (0-40.0) 12/24/19 04:31 Salicylates < 0.3 mg/dL (2.8-20.0) L 11/22/19 23:27 Urine Opiates Screen Presumptive negative 11/22/19 23:17 Urine Methadone Screen Presumptive negative 11/22/19 23:17 Acetaminophen < 5.0 ug/mL (10.0-30.0) L 11/22/19 23:27 Ur Barbiturates Screen Presumptive negative 11/22/19 23:17 Ur Phencyclidine Scrn Presumptive negative 11/22/19 23:17 Ur Amphetamines Screen Presumptive negative 11/22/19 23:17 U Benzodiazepines Scrn Presumptive negative 11/22/19 23:17 Urine Cocaine Screen Presumptive negative 11/22/19 23:17 U Marijuana (THC) Screen Presumptive negative 11/22/19 23:17 Drugs of Abuse Note Disclamer 11/22/19 23:17 Plasma/Serum Alcohol 0.08 % (0-0.07) H 11/22/19 23:27 Coronavirus (PCR) Negative (Negative) 02/05/20 07:50 Hepatitis A IgM Ab Non-reactive (NonReactive) 11/23/19 01:19 Hep Bs Antigen Non-reactive (Negative) 11/23/19 01:19 Hep B Core IgM Ab Non-reactive (NonReactive) 11/23/19 01:19 Hepatitis C Antibody Non-reactive (NonReactive) 11/23/19 01:19 Blood Type O POSITIVE 12/21/19 14:54 Antibody Screen Negative 12/21/19 14:54 Crossmatch See Detail 12/21/19 14:54 - Diagnostic Impressions Diagnostic Impressions: Echocardiogram 11/23/19 03:58 Transthoracic Echocardiogram Indication: Cardiac arrest BP: 131/89 HR: 115 Conclusions *The study quality is technically difficult. *Global left ventricular wall motion and contractility are within normal limits. *The estimated ejection fraction is 55-60%. *Abnormal left ventricular diastolic filling is observed, consistent with impaired relaxation. *There is no pericardial effusion. Findings Procedure Info: The study quality is technically difficult. The study was technically limited due to the patient's inability to lay in the left lateral decubitus position. Left Ventricle: The left ventricular chamber size is normal. There is no left ventricular hypertrophy. Global left ventricular wall motion and contractility are within normal limits. Global left ventricular systolic function is normal. The estimated ejection fraction is 55-60%. Abnormal left ventricular diastolic filling is observed, consistent with impaired relaxation. Left Atrium: The left atrial chamber size is normal. Aortic Valve: The aortic valve leaflets are mildly thickened. Mitral Valve: The mitral valve leaflets are mildly thickened. There is no evidence of mitral regurgitation. Tricuspid Valve: The tricuspid valve leaflets are normal. There is trace tricuspid regurgitation. The right ventricular systolic pressure is calculated at 33 mmHg. Pulmonic Valve: The pulmonic valve appears normal. Pericardium: The pericardium appears normal. There is no pericardial effusion. Aorta: The aorta appears normal. Venous: The inferior vena cava appears normal in size. Measurements Chambers 2D Name Value Normal Range IVSd (2D) 0.94 cm (0.6 - 1.1) LVPWd (2D) 0.81 cm (0.6 - 1.1) LVIDd (2D) 3.6 cm (3.7 - 5.6) LVIDs (2D) 2.27 cm (2 - 3.8) LV FS (2D) 36.93 % - EF Teichholz (2D) 67.76 % - Ao root diameter (2D) 3.03 cm (2 - 3.7) Volumes/Mass Name Value Normal Range LA ESV SP 4CH (A/L) 16.89 ml - LA ESV SP 4CH (MOD) 15.52 ml - Diastolic/Systolic Function Name Value Normal Range MV E-wave Vmax 0.55 m/sec - MV deceleration time 200.89 msec - MV A-wave Vmax 0.68 m/sec - MV E:A ratio 0.82 ratio - Aortic Valve Name Value Normal Range AV Vmax 1.1 m/sec - AV VTI 15.9 cm - AV peak gradient 4.86 mmHg - AV mean gradient 2.59 mmHg - LVOT diameter 2 cm - LVOT Vmax 1.03 m/sec - LVOT VTI 15.87 cm - LVOT peak gradient 4.24 mmHg - LVOT mean gradient 2.41 mmHg - SV LVOT 49.77 ml - JOSÉ MIGUEL (continuity Vmax) 2.93 cm2 - JOSÉ MIGUEL (continuity VTI) 3.13 cm2 - Tricuspid Valve Name Value Normal Range TR Vmax 2.74 m/sec - TR peak gradient 303 mmHg - RAP 3 mmHg - RVSP 33 mmHg - IVC diameter 1.77 cm (1.2 - 2.3) Pulmonic Valve/Qp:Qs Name Value Normal Range PV Vmax 0.77 m/sec - PV peak gradient 2.4 mmHg - PV acceleration time 114.18 msec - Echocardiogram Limited Views 12/17/19 14:53 Transthoracic Echocardiogram Indication: R/O Vegetations BP: 144/83 HR: 133 Conclusions *Global left ventricular systolic function is mildly decreased. *The estimated ejection fraction is 45-50%. *A trivial pericardial effusion is visualized. Findings Left Ventricle: The left ventricular chamber size is normal. Global left ventricular systolic function is mildly decreased. The estimated ejection fraction is 45-50%. Left Atrium: The left atrial chamber size is normal. Right Ventricle: The right ventricular cavity size is normal. Right Atrium: The right atrial cavity size is normal. Aortic Valve: The aortic valve is not well visualized. There is no evidence of aortic regurgitation. Mitral Valve: The mitral valve leaflets are mildly thickened. There is trace of mitral regurgitation. Tricuspid Valve: The tricuspid valve leaflets are mildly thickened. There is trace tricuspid regurgitation. The right ventricular systolic pressure is calculated at 29 mmHg. Pulmonic Valve: The pulmonic valve is not well visualized. There is no evidence of pulmonic regurgitation. Pericardium: A trivial pericardial effusion is visualized. Aorta: There is no dilatation of the ascending aorta. There is no dilatation of the aortic root. Venous: The inferior vena cava appears normal in size. There is a greater than 50% respiratory change in the inferior vena cava dimension. Measurements Chambers 2D Name Value Normal Range IVSd (2D) 0.83 cm (0.6 - 1.1) LVPWd (2D) 0.98 cm (0.6 - 1.1) LVIDd (2D) 3.71 cm (3.7 - 5.6) LVIDs (2D) 2.93 cm (2 - 3.8) LV FS (2D) 21.12 % - EF Teichholz (2D) 43.71 % - Ao root diameter (2D) 3.02 cm (2 - 3.7) Volumes/Mass Name Value Normal Range LA ESV SP 4CH (A/L) 36.8 ml - LA ESV SP 2CH (A/L) 45.89 ml - LA ESV BP (A/L) 42.35 ml - LA ESV BP (A/L) index 26.63 ml/m2 - LA ESV SP 4CH (MOD) 34.42 ml - LA ESV SP 2CH (MOD) 44.21 ml - LA ESV BP (MOD) 39.82 ml - LA ESV BP (MOD) index 25.05 ml/m2 - Aortic Valve Name Value Normal Range LVOT diameter 1.63 cm - Tricuspid Valve Name Value Normal Range TR Vmax 2.56 m/sec - TR peak gradient 26 mmHg - RAP 3 mmHg - RVSP 29 mmHg - IVC diameter 1.83 cm (1.2 - 2.3) Del[place] Cruz/IV: Voiding Method Incontinent IV Catheter Type [Forearm] Peripheral IV IV Catheter Type [Left Forearm INT / Saline Lock ] IV Catheter Type [Right INT / Saline Lock Antecubital] IV Catheter Type [Right Hand] INT / Saline Lock IV Catheter Type [Right Wrist] Peripheral IV IV Catheter Type [Left Wrist] Peripheral IV IV Catheter Type [Left Peripheral IV Antecubital] IV Catheter Type [Right INT / Saline Lock Forearm] IV Catheter Type [Left Hand] INT / Saline Lock Active Medications - Current Medications Current Medications: Generic Name Dose Route Start Last Admin Trade Name Freq PRN Reason Stop Dose Admin Albuterol 2.5 mg 03/25/20 19:25 04/07/20 08:59 Proventil IH 2.5 mg Q4HRT PRN Administration Shortness Of Breath Lipase/Protease/Amylase 1 each 11/23/19 11:50 Pancreaze 10,500 Unit FEEDTUBE PRN PRN Use w/ sod bicarb for FT Bisacodyl 10 mg 02/06/20 13:57 Dulcolax [place] QDAY PRN Constipation unrelieved by MOM Enoxaparin Sodium 40 mg 03/07/20 22:00 04/29/20 21:25 Enoxaparin SUB-Q 40 mg QDAY@2200 LUCHO Administration Folic Acid 1 mg 04/27/20 10:00 04/29/20 10:12 Folvite PO 1 mg QDAY LUCHO Administration Glycopyrrolate 2 mg 04/29/20 14:00 04/29/20 21:24 Robinul PO 2 mg TID LUCHO Administration Guaifenesin 10 ml 04/28/20 05:11 04/28/20 21:41 Guaifenesin Dm Syrup PO 10 ml Q6H PRN Administration Cough Haloperidol Lactate 5 mg 03/05/20 09:22 04/29/20 21:25 Haldol IM 5 mg Q6H PRN Administration Agitation Hydroxyzine Pamoate 25 mg 12/06/19 10:00 04/29/20 21:25 Vistaril PO 25 mg BID LUCHO Administration Lansoprazole 30 mg 11/27/19 10:00 04/29/20 10:11 Prevacid Solutab FEEDTUBE 30 mg QDAY LUCHO Administration Levetiracetam 500 mg 11/29/19 10:00 04/29/20 21:25 Keppra PO 500 mg BID LUCHO Administration Mirtazapine 30 mg 12/06/19 10:00 04/29/20 10:12 Remeron PO 30 mg DAILY LUCHO Administration Nicotine 21 mg 02/16/20 13:00 04/29/20 10:11 Habitrol TD 21 mg QDAY LUCHO Administration Ondansetron HCl 4 mg 12/10/19 07:53 02/25/20 02:51 Zofran IV 4 mg Q4H PRN Administration Nausea And Vomiting Polyethylene Glycol 17 gm 02/06/20 13:57 Miralax 3350 PO QDAY PRN Constipation Quetiapine Fumarate 100 mg 03/06/20 10:00 04/29/20 21:26 Seroquel FEEDTUBE 100 mg BID LUCHO Administration Scopolamine 1 each 02/08/20 15:00 04/29/20 10:13 Transderm-Scop TD 1 each Q3D LUCHO Administration Sertraline HCl 25 mg 01/01/20 10:00 04/29/20 10:12 Zoloft PO 25 mg QDAY LUCHO Administration Simple Syrup 15 ml 11/23/19 11:50 Simple Syrup FEEDTUBE PRN PRN Hypoglycemia BG<70 Simple Syrup 30 ml 11/23/19 11:50 Simple Syrup FEEDTUBE PRN PRN Hypoglycemia Sodium Bicarbonate 325 mg 11/23/19 11:50 Sodium Bicarbonate FEEDTUBE PRN PRN For Clogged Feeding Tube Nutrition/Malnutrition Assess - Dietary Evaluation Nutrition/Malnutrition Findings: Nutrition Notes Start: 11/23/19 11:29 Freq: Status: Active Protocol: Document 04/23/20 14:33 EVELIA (Rec: 04/23/20 14:35 EVELIA [email or web address] [email or web address]) Nutrition Notes Initial or Follow up Reassessment Other Pertinent Diagnosis s/p Cardiac arrest, acute metabolic encephalopathy Current Diet Mech soft with chopped meats Labs/Tests Reviewed Pertinent Medications Reviewed Height 5 ft 6 in Weight 43.5 kg [place] Body Weight (kg) 59.09 BMI 15.5 Subjective/Other Information Pt has consumed 79% of meals since last assessment. Percent of energy/protein needs met: 100% energy 100% pro Burn Absent Trauma Absent Current % PO Good (75-100%) #2 Nutrition Diagnosis Malnutrition Diagnosis Progress(for reassessment Continues documentation) Is patient on ventilator? No Is Patient Ambulatory and/or Out of Bed No REE-([facility]-confined to bed) 1260.864 Kcal/Kg value to use for calculation 35 Approximate Energy Requirements Using 1523 kcal/Kg Calculation Used for Recommendations Kcal/kg Additional Notes Pro needs 1.2-1.5g/k-65g/ day Fluid needs 1ml/kcal Nutrition Intervention Goal #1 PO intake of meals plus ONS to meet 100% energy and pro needs Goal #2 Wt maintenance and/or gain Revisit per MD consult or patient Sign Off request:
[2020-04-30] MEDS: levETIRAcetam 500 MG/5 ML ORAL LIQD PO SCH ×2 (12:26→22:19)
[2020-04-30] MEDS: MIRTAZAPINE 30 MG TAB PO SCH (12:26)
[2020-04-30] MEDS: GLYCOPYRROLATE 1 MG TAB PO SCH ×3 (12:27→22:19)
[2020-04-30] MEDS: SERTRALINE 50 MG TAB PO SCH (12:27)
[2020-04-30] MEDS: NICOTINE 21 MG/24 HR PATCH TD SCH (12:27)
[2020-04-30] MEDS: LANSOPRAZOLE 30 MG SOLUTAB FEEDTUBE SCH (12:27)
[2020-04-30] MEDS: hydrOXYzine PAMOATE 25 MG CAP PO SCH ×2 (12:27→22:19)
[2020-04-30] MEDS: QUEtiapine 100 MG TAB FEEDTUBE SCH ×2 (12:28→22:19)
[2020-04-30] MEDS: FOLIC ACID 1 MG TAB PO SCH (12:28)
[2020-04-30] MEDS: ENOXAPARIN 40 MG/0.4 ML INJ SUB-Q SCH (22:19)
[2020-04-30] MEDS: HALOPERIDOL LACTATE 5 MG/1 ML INJ IM PRN (22:21)
[2020-05-01 08:10] LABS: Hematocrit 34.9 % (30.3-42.9); Hemoglobin 11.4 gm/dl (10.1-14.3); Mean Corpuscular HGB Conc 33 % (30-34); Mean Corpuscular Volume 90 fl (79-97); Platelet Count 498 K/mm3 (140-440); Red Cell Distribution Width 14.5 % (13.2-15.2)
[2020-05-01 09:13] LABS: BUN/Creatinine Ratio 30; Blood Urea Nitrogen 21 mg/dL (7-17); Calcium 10.6 mg/dL (8.4-10.2); Hemolysis Index 11
[2020-05-01] MEDS: FOLIC ACID 1 MG TAB PO SCH (10:52)
[2020-05-01] MEDS: QUEtiapine 100 MG TAB FEEDTUBE SCH ×2 (10:52→22:23)
[2020-05-01] MEDS: SERTRALINE 50 MG TAB PO SCH (10:52)
[2020-05-01] MEDS: LANSOPRAZOLE 30 MG SOLUTAB FEEDTUBE SCH (10:52)
[2020-05-01] MEDS: GLYCOPYRROLATE 1 MG TAB PO SCH ×3 (10:53→22:23)
[2020-05-01] MEDS: hydrOXYzine PAMOATE 25 MG CAP PO SCH ×2 (10:53→22:23)
[2020-05-01] MEDS: MIRTAZAPINE 30 MG TAB PO SCH (10:53)
[2020-05-01] MEDS: levETIRAcetam 500 MG/5 ML ORAL LIQD PO SCH ×2 (10:53→22:23)
[2020-05-01] MEDS: NICOTINE 21 MG/24 HR PATCH TD SCH (10:53)
--- NOTE | 2020-05-01 11:22 | Progress Note ---
Subjective Date of service: 05/01/20 Principal diagnosis: Ac cardiopulmonary arrest; Ac hypoxemic resp failure; Acute encephalopathy Interval history: 54-year-old female with a past medical history of Hypertension, Depression, Tobacco use Disorder, Alcohol use Disorder as confirmed by Daughter and pt's mother presents to the hospital status post cardiac arrest at home. EMS found pt in [place]. They were unable to intubate patient with a ET tube because she was clenching down therefore Joe airway placed. Per the ED physician who evaluated pt, Patient presented with a pulse, intermittent respirations, and bagging support via Joe airway with O2 sat of 100%. Accu-Chek of 71 obtained by EMS. She was intubated in the ER and called for admission. Following admission patient was diagnosed with anoxic brain injury, sepsis with MRSA bacteremia and MSSA pneumonia, alcoholic liver disease. Family member initially wished for full code then changed to DNR, patient treated with IV antibiotics for sepsis, status post trach and PEG on 12/13/19. Weaned off from the vent and put on T- piece. Patient is uninsured, waiting for placement, guarded prognosis. 03/07: Returning to service no acute changes are noted. Continue current management while awaiting placement. Intermittent labs. Base of neck also around tracheostomy tube preventing downgrading. Continue appropriate wound care. 03/08: Plan of care unchanged continues on aerosol trach collar 28% of oxygen. Continue wound care management placement still pending status decision. 03/09: Continue current treatment plan. Continue aspiration precaution 03/10: Continue current management, Restraints as patient still pulling, awaiting placement 03/11: Continue supportive care, intermittent suctioning and pulmonary toilet. awaiting placement. 03/12: Continue supportive care, Give a bolus of fluids due to Hypercalcemia, Monitor Hyperkalemia with labs in am, No arrhythmia. Patient vomiting, concern for aspiration, Chest xray ordered and no active disease noted. Keep HOB >45% 03/13: No evidence of aspiration on xray. Continue supportive care. 03/14: Continue supportive care. Capping trials to start. Discussed with patients nursing and case management to continue daily PT by the Rehab team. 03/15: Discussed again with staff to start capping trial. 03/16: Do not see any indication the capping trial has started will discuss with respiratory therapist. Continue restraints. Still awaiting family decision patient has had some remarkable improvement considering the fact that she was able to stay around night without restraints. We will continue daily trial of this method. Discussed plan with nursing staff 03/17: Continue current care. Currently continue restraints. Continue current management. Continue physical therapy daily. 03/18: Capping trial successful and will possibly get decannulated today. Continue placement. 03/19: Now decannulated and doing well. Begin discharge planning. 03/20: Stable, no new complaints. 03/21: No new complaints. Continue supportive 03/22: No new complaints, still with some confusion, and agitation requiring restraints. Will require daily PT/OT and continue to work with Case management for placement 03/23: continue current management, daily PT/OT. stoma care. No new seizure, slow but gradual improvement noted daily 03/24: Mr. Amaya is a 55-year-old female who presented to the hospital was admitted post cardiac arrest at home she has remarkably done well been extubated and decannulated with stoma healing. She still does experience some intermittent delirious process and as a result is on restraints. I have discussed with nursing staff to see if they can provide a sitter for her and continue daily PT as this will aid in reintroducing her to the community. Case management is working on placement for her. Will check labs in a.m. 04/29: Returning to services, please see other notes. Patient stable and continues to improve. STILL WITH ALTERED MENTAL STATUS, SHE STILL REQUIRES RESTRAINTS, CASE MANAGEMENT WORKING ON PLACEMENT 04/30: Clinically stable continue to monitor still with altered sensorium still awaiting placement. Will check intermittent labs. 05/01 has arm restarints, confused, lethargic and sleepy but easily aroused waiting for placement / Anoxic brain injury: suspected CT head: No acute abnormality. EEG ordered showed Generalized slowing. No seizures or epileptiform activity. -Patient now opening her eyes, can speak and able to follow command -As needed haldol for agitation /Acute Respiratory failure -due to MSSA PNA -s/p intubation, s/p trach and PEG on 12/12 with mechanical ventilation, now on T-piece - CTA was done and negative for PE, - Echo quality is poor, showed diastolic dysfunction - continue weaning as tolerated -Continue appropriate and adequate tracheostomy care /Tracheostomy site ulceration Decfanulated on O2 via NC at 3 L/min -Continue appropriate wound management try to keep area dry. /Anemia, microcytic - Status post 3 units PRBC transfusion, H&H low stable /Acute metabolic encephalopathy/toxic encephalopathy due to the above - cont supportive care /Hyperammonemia - likely from liver disease related to EtOH abuse - Patient had elevated ammonia level and treated with lactulose /Metabolic Acidosis -Alcohol ketoacidosis vs hypoprofusion -Continue to monitor /ELevated LFTs, stable now - due to ischemic hepatitis. /Leucocytosis with sepsis - Source MRSA bacteremia and MSSA pneumonia. UA showed pyuria. RUQ US showed no ascites. - Repeat TTE negative for vegetation. Completed 7 days of Ceftriaxone on 11/29/2019. -Treated with Abx vancomycin 1 gm IV q 12 hour total 2 week till 12/30/2019 /Severe protein calorie malnutrition Dietitian consult to assist in management. /MSSA pneumonia: Status post vancomycin till 12/30/2019 /Alcohol use Disorder - given ongoing Alcohol use almost daily, s/p IV Thiamine - monitor /Severe hypokalemia -Repleted /Seizure disorder: treat with Keppra /H. Influenzae, tracheobronchitis, treated with abx /Moderate to severe fecal impaction - will add stool softner DNR CODE STATUS Disposition: prognosis guarded. Family okay for DNR, PT recommended subacute rehab, discharge pending on placement. Negative for COVID 19 Objective - Constitutional Vitals: Vital Signs - 12hr 05/01/20 05/01/20 05/01/20 00:41 04:27 08:11 Temperature 98 F 98.0 F 98.0 F Pulse Rate 68 78 80 Respiratory 18 16 Rate Blood Pressure 161/97 120/79 Blood Pressure 138/78 [Left] O2 Sat by Pulse 84 100 Oximetry General appearance: Present: no acute distress - EENT Eyes: PERRL, EOM intact ENT: hearing intact, no thrush - Neck Neck: supple, other (decanulated) - Respiratory Respiratory effort: normal Respiratory: bilateral: diminished - Breasts Breasts: deferred - Cardiovascular Rhythm: regular Heart Sounds: Present: S1 & S2 Extremities: No edema - Gastrointestinal General gastrointestinal: Present: soft, non-tender Rectal Exam: deferred - Genitourinary Female genitourinary: deferred - Labs CBC & Chem 7: 05/01/20 07:57 05/01/20 07:57 Labs: Abnormal lab results 05/01/20 05/01/20 Range/Units 07:57 07:57 Plt Count 498 H (140-440) K/mm3 BUN 21 H (7-17) mg/dL Calcium 10.6 H (8.4-10.2) mg/dL HEART Score - HEART Score Troponin: Troponin T < 0.010 ng/mL (0.00-0.029) 11/22/19 23:27
--- NOTE | 2020-05-01 18:14 | Consultation ---
History of Present Illness Consult date: 05/01/20 Chief complaint: altered mental status History of present illness: TELE NEUROLOGY CONSULT-- 54-year-old female with a past medical history of Hypertension, Depression, Tobacco use Disorder, Alcohol use Disorder as confirmed by Daughter and pt's mother presents to the hospital status post cardiac arrest at home. EMS found pt in [place]. They were unable to intubate patient with a ET tube because she was clenching down therefore Joe airway placed. Per the ED physician who evaluated pt, Patient presented with a pulse, intermittent respirations, and bagging support via Joe airway with O2 sat of 100%. Accu-Chek of 71 obtained by EMS. She was intubated in the ER and called for admission. Following admission patient was diagnosed with anoxic brain injury, sepsis with MRSA bacteremia and MSSA pneumonia, alcoholic liver disease. Family member initially wished for full code then changed to DNR, patient treated with IV antibiotics for sepsis, status post trach and PEG on 12/13/19. Weaned off from the vent and put on T- piece. Patient is uninsured, waiting for placement, guarded prognosis. 03/07: Returning to service no acute changes are noted. Continue current management while awaiting placement. Intermittent labs. Base of neck also around tracheostomy tube preventing downgrading. Continue appropriate wound care. 03/08: Plan of care unchanged continues on aerosol trach collar 28% of oxygen. Continue wound care management placement still pending status decision. 03/09: Continue current treatment plan. Continue aspiration precaution 03/10: Continue current management, Restraints as patient still pulling, awaiting placement 03/11: Continue supportive care, intermittent suctioning and pulmonary toilet. awaiting placement. 03/12: Continue supportive care, Give a bolus of fluids due to Hypercalcemia, Monitor Hyperkalemia with labs in am, No arrhythmia. Patient vomiting, concern for aspiration, Chest xray ordered and no active disease noted. Keep HOB >45% 03/13: No evidence of aspiration on xray. Continue supportive care. 03/14: Continue supportive care. Capping trials to start. Discussed with patients nursing and case management to continue daily PT by the Rehab team. 03/15: Discussed again with staff to start capping trial. 03/16: Do not see any indication the capping trial has started will discuss with respiratory therapist. Continue restraints. Still awaiting family decision patient has had some remarkable improvement considering the fact that she was able to stay around night without restraints. We will continue daily trial of this method. Discussed plan with nursing staff 03/17: Continue current care. Currently continue restraints. Continue current management. Continue physical therapy daily. 03/18: Capping trial successful and will possibly get decannulated today. Continue placement. 03/19: Now decannulated and doing well. Begin discharge planning. 03/20: Stable, no new complaints. 03/21: No new complaints. Continue supportive 03/22: No new complaints, still with some confusion, and agitation requiring restraints. Will require daily PT/OT and continue to work with Case management for placement 03/23: continue current management, daily PT/OT. stoma care. No new seizure, slow but gradual improvement noted daily 03/24: Mr. Amaya is a 55-year-old female who presented to the hospital was admitted post cardiac arrest at home she has remarkably done well been extubated and decannulated with stoma healing. She still does experience some inter mittent delirious process and as a result is on restraints. I have discussed with nursing staff to see if they can provide a sitter for her and continue daily PT as this will aid in reintroducing her to the community. Case management is working on placement for her. Will check labs in a.m. 04/29: Returning to services, please see other notes. Patient stable and continues to improve. STILL WITH ALTERED MENTAL STATUS, SHE STILL REQUIRES RESTRAINTS, CASE MANAGEMENT WORKING ON PLACEMENT 04/30: Clinically stable continue to monitor still with altered sensorium still awaiting placement. Will check intermittent labs. / Anoxic brain injury: suspected CT head: No acute abnormality. EEG ordered showed Generalized slowing. No seizures or epileptiform activity. -Patient now opening her eyes, can speak and able to follow command -As needed haldol for agitation /Acute Respiratory failure -due to MSSA PNA -s/p intubation, s/p trach and PEG on 12/12 with mechanical ventilation, now on T-piece - CTA was done and negative for PE, - Echo quality is poor, showed diastolic dysfunction - continue weaning as tolerated -Continue appropriate and adequate tracheostomy care /Tracheostomy site ulceration -Continue appropriate wound management try to keep area dry. /Anemia, microcytic - Status post 3 units PRBC transfusion, H&H low stable /Acute metabolic encephalopathy/toxic encephalopathy due to the above - cont supportive care /Hyperammonemia - likely from liver disease related to EtOH abuse - Patient had elevated ammonia level and treated with lactulose /Metabolic Acidosis -Alcohol ketoacidosis vs hypoprofusion -Continue to monitor /ELevated LFTs, stable now - due to ischemic hepatitis. /Leucocytosis with sepsis - Source MRSA bacteremia and MSSA pneumonia. UA showed pyuria. RUQ US showed no ascites. - Repeat TTE negative for vegetation. Completed 7 days of Ceftriaxone on 11/29/2019. -Treated with Abx vancomycin 1 gm IV q 12 hour total 2 week till 12/30/2019 /Severe protein calorie malnutrition Dietitian consult to assist in management. /MSSA pneumonia: Status post vancomycin till 12/30/2019 /Alcohol use Disorder - given ongoing Alcohol use almost daily, s/p IV Thiamine - monitor /Severe hypokalemia -Repleted /Seizure disorder: treat with Keppra /H. Influenzae, tracheobronchitis, treated with abx /Moderate to severe fecal impaction - will add stool softner DNR CODE STATUS Disposition: prognosis guarded. Family okay for DNR, PT recommended subacute rehab, discharge pending on placement. Negative for COVID 19 Past History Past Medical History: hypertension, other (ALcohol use disorder, Tobacco use disorder) Social history: alcohol abuse, full code. denies: IV drug use Family history: hypertension Medications and Allergies Allergies Allergy/AdvReac Type Severity Reaction Status Date / Time No Known Allergies Allergy Verified 03/28/17 11:20 Home Medications Medication Instructions Recorded Confirmed Last Taken Type Folic Acid [Folvite] 1 mg PO QDAY #30 tablet 05/25/18 11/23/19 Unknown Rx Docusate Sodium [Colace CAP] 100 mg PO BID capsule 02/12/20 Unknown Rx Glycopyrrolate [Robinul] 2 mg PO TID tablet 02/12/20 Unknown Rx Lansoprazole Solutab [Prevacid 30 mg FEEDTUBE QDAY tab.rapdis 02/12/20 Unknown Rx Solutab] Levalbuterol [Xopenex] 0.63 mg IH Q6HRT nebu 02/12/20 Unknown Rx Lipase/Protease/Amylase [Pancreaze 1 each FEEDTUBE PRN PRN capsule 02/12/[address] 10,500 Unit] Mirtazapine [Remeron 30mg TAB] 30 mg PO DAILY tablet 02/12/20 Unknown Rx QUEtiapine [SEROquel] 100 mg FEEDTUBE QHS tablet 02/12/20 Unknown Rx Scopolamine [Transderm-Scop] 1 each TD Q3D patch 02/12/20 Unknown Rx Sertraline [Zoloft] 25 mg PO QDAY tablet 02/12/20 Unknown Rx Tamsulosin [Flomax] 0.4 mg PO QDAY capsule 02/12/20 Unknown Rx bisacodyL [Dulcolax suppos] 10 mg AR QDAY PRN supp.rect 02/12/20 Unknown Rx hydrOXYzine PAMOATE [Vistaril] 25 mg PO BID capsule 02/12/20 Unknown Rx levETIRAcetam [Keppra] 500 mg PO BID oral.liqd 02/12/20 Unknown Rx polyethylene glycoL 3350 [Miralax 17 gm PO QDAY PRN powd.pack 02/12/20 Unknown Rx 3350] Active Meds: Active Medications Albuterol (Proventil) 2.5 mg IH Q4HRT PRN PRN Reason: Shortness Of Breath Last Admin: 04/07/20 08:59 Dose: 2.5 mg Documented by: Lipase/Protease/Amylase (Radhika Crenshaw 10,500 Unit) 1 each FEEDTUBE PRN PRN PRN Reason: Use w/ sod bicarb for FT Bisacodyl (Dulcolax) 10 mg AR QDAY PRN PRN Reason: Constipation unrelieved by MOM Enoxaparin Sodium (Enoxaparin) 40 mg SUB-Q QDAY@2200 [facility] Last Admin: 04/30/20 22:19 Dose: 40 mg Documented by: Folic Acid (Folvite) 1 mg PO QDAY [facility] Last Admin: 05/01/20 10:52 Dose: 1 mg Documented by: Glycopyrrolate (Robinul) 2 mg PO TID [facility] Last Admin: 05/01/20 15:24 Dose: 2 mg Documented by: Guaifenesin (Guaifenesin Dm Syrup) 10 ml PO Q6H PRN PRN Reason: Cough Last Admin: 04/28/20 21:41 Dose: 10 ml Documented by: Haloperidol Lactate (Haldol) 5 mg IM Q6H PRN PRN Reason: Agitation Last Admin: 04/30/20 22:21 Dose: 5 mg Documented by: Hydroxyzine Pamoate (Vistaril) 25 mg PO BID [facility] Last Admin: 05/01/20 10:53 Dose: 25 mg Documented by: Lansoprazole (Prevacid Solutab) 30 mg FEEDTUBE QDAY [facility] Last Admin: 05/01/20 10:52 Dose: 30 mg Documented by: Levetiracetam (Keppra) 500 mg PO BID [facility] Last Admin: 05/01/20 10:53 Dose: 500 mg Documented by: Mirtazapine (Remeron) 30 mg PO DAILY [facility] Last Admin: 05/01/20 10:53 Dose: 30 mg Documented by: Nicotine (Habitrol) 21 mg TD QDAY [facility] Last Admin: 05/01/20 10:53 Dose: 21 mg Documented by: Ondansetron HCl (Zofran) 4 mg IV Q4H PRN PRN Reason: Nausea And Vomiting Last Admin: 02/25/20 02:51 Dose: 4 mg Documented by: Polyethylene Glycol (Miralax 3350) 17 gm PO QDAY PRN PRN Reason: Constipation Quetiapine Fumarate (Seroquel) 100 mg FEEDTUBE BID [facility] Last Admin: 05/01/20 10:52 Dose: 100 mg Documented by: Scopolamine (Transderm-Scop) 1 each TD Q3D [facility] Last Admin: 04/29/20 10:13 Dose: 1 each Documented by: Sertraline HCl (Zoloft) 25 mg PO QDAY [facility] Last Admin: 05/01/20 10:52 Dose: 25 mg Documented by: Simple Syrup (Simple Syrup) 15 ml FEEDTUBE PRN PRN PRN Reason: Hypoglycemia BG<70 Simple Syrup (Simple Syrup) 30 ml FEEDTUBE PRN PRN PRN Reason: Hypoglycemia Sodium Bicarbonate (Sodium Bicarbonate) 325 mg FEEDTUBE PRN PRN PRN Reason: For Clogged Feeding Tube Last Admin: 04/30/20 12:27 Dose: 325 mg Documented by: Review of Systems All systems: negative (ams) Physical Examination - Vital Signs Vital Signs: Vital Signs Pulse Resp 115 H 20 11/22/19 23:04 11/22/19 23:04 - Physical Exam Narrative exam: Neurology examination: MS- on command opens her eyes. confused. she can tell her name, but cannot tell the date or year. she can name simple things at times but not other times. does not follow all the commands except occasionally follow simple commands. CN- eomi- no facial asymmetry/ by nurse- óscar. M- in restraints. cannot assess full motor exam. but tries to get off the bed. Laboratory Results - last 72 hr 04/30/20 05/01/20 05/01/20 15:06 07:57 07:57 WBC 6.8 RBC 3.90 Hgb 11.4 Hct 34.9 MCV 90 MCH 29 MCHC 33 RDW 14.5 Plt Count 498 H Sodium 140 Potassium 4.6 Chloride 101.7 Carbon Dioxide 27 Anion Gap 16 BUN 21 H Creatinine 0.7 Estimated GFR > 60 BUN/Creatinine Ratio 30 Glucose 96 Calcium 10.6 H TSH 1.140 Results - Laboratory Findings CBC and BMP: 05/01/20 07:57 05/01/20 07:57 Abnormal Lab Findings: Abnormal Labs 11/22/19 11/22/19 11/22/19 23:17 23:18 23:27 WBC 21.2 H RBC 3.59 L Hgb 9.8 L Hct MCH 27 L RDW 18.6 H Plt Count 454 H Lymph % (Auto) [place] % (Auto) [place] # Baso # Seg Neutrophils % Seg Neuts % (Manual) 86.0 H Lymphocytes % (Manual) 9.0 L Monocytes % (Manual) Seg Neutrophils # Seg Neutrophils # Man 18.2 H Lymphocytes # (Manual) Monocytes # (Manual) 1.1 H Eosinophils # (Manual) Basophils # (Manual) PT INR APTT ABG pH ABG pO2 ABG HCO3 ABG O2 Saturation ABG Base Excess ABG Hemoglobin Oxyhemoglobin Sodium Potassium Chloride Carbon Dioxide BUN Creatinine Glucose POC Glucose 53 L Lactic Acid Calcium Ionized Calcium Phosphorus Magnesium Total Bilirubin AST ALT Alkaline Phosphatase Ammonia Total Creatine Kinase CK-MB (CK-2) CK-MB (CK-2) Rel Index Total Protein Albumin Urine WBC (Auto) 40.0 H Vancomycin Trough Salicylates Acetaminophen Plasma/Serum Alcohol Crossmatch 11/22/19 11/22/19 11/22/19 23:27 23:27 23:27 WBC RBC Hgb Hct MCH RDW Plt Count Lymph % (Auto) [place] % (Auto) [place] # Baso # Seg Neutrophils % Seg Neuts % (Manual) Lymphocytes % (Manual) Monocytes % (Manual) Seg Neutrophils # Seg Neutrophils # Man Lymphocytes # (Manual) Monocytes # (Manual) Eosinophils # (Manual) Basophils # (Manual) PT INR APTT ABG pH ABG pO2 ABG HCO3 ABG O2 Saturation ABG Base Excess ABG Hemoglobin Oxyhemoglobin Sodium Potassium 2.4 L* Chloride 85.1 L Carbon Dioxide 19 L BUN Creatinine 0.5 L Glucose 261 H POC Glucose Lactic Acid Calcium Ionized Calcium Phosphorus Magnesium Total Bilirubin AST 609 H ALT 152 H Alkaline Phosphatase 160 H Ammonia 117.0 H Total Creatine Kinase 139 H CK-MB (CK-2) 8.3 H CK-MB (CK-2) Rel Index 5.9 H Total Protein Albumin 3.6 L Urine WBC (Auto) Vancomycin Trough Salicylates < 0.3 L Acetaminophen Plasma/Serum Alcohol Crossmatch 11/22/19 11/22/19 11/23/19 23:27 23:27 01:10 WBC RBC Hgb Hct MCH RDW Plt Count Lymph % (Auto) [place] % (Auto) [place] # Baso # Seg Neutrophils % Seg Neuts % (Manual) Lymphocytes % (Manual) Monocytes % (Manual) Seg Neutrophils # Seg Neutrophils # Man Lymphocytes # (Manual) Monocytes # (Manual) Eosinophils # (Manual) Basophils # (Manual) PT INR APTT ABG pH 7.273 L ABG pO2 209.7 H ABG HCO3 ABG O2 Saturation 99.2 H ABG Base Excess -3.9 L ABG Hemoglobin 10.6 L Oxyhemoglobin 93.9 L Sodium Potassium Chloride Carbon Dioxide BUN Creatinine Glucose POC Glucose Lactic Acid Calcium Ionized Calcium Phosphorus Magnesium Total Bilirubin AST ALT Alkaline Phosphatase Ammonia Total Creatine Kinase CK-MB (CK-2) CK-MB (CK-2) Rel Index Total Protein Albumin Urine WBC (Auto) Vancomycin Trough Salicylates Acetaminophen < 5.0 L Plasma/Serum Alcohol 0.08 H Crossmatch 11/23/19 11/23/19 11/23/19 01:19 01:19 03:47 WBC RBC Hgb Hct MCH RDW Plt Count Lymph % (Auto) [place] % (Auto) [place] # Baso # Seg Neutrophils % Seg Neuts % (Manual) Lymphocytes % (Manual) Monocytes % (Manual) Seg Neutrophils # Seg Neutrophils # Man Lymphocytes # (Manual) Monocytes # (Manual) Eosinophils # (Manual) Basophils # (Manual) PT 16.3 H INR 1.29 H APTT ABG pH ABG pO2 ABG HCO3 ABG O2 Saturation ABG Base Excess ABG Hemoglobin Oxyhemoglobin Sodium Potassium Chloride Carbon Dioxide BUN Creatinine Glucose POC Glucose Lactic Acid 2.10 H* 5.00 H* Calcium Ionized Calcium Phosphorus Magnesium Total Bilirubin AST ALT Alkaline Phosphatase Ammonia Total Creatine Kinase CK-MB (CK-2) CK-MB (CK-2) Rel Index Total Protein Albumin Urine WBC (Auto) Vancomycin Trough Salicylates Acetaminophen Plasma/Serum Alcohol Crossmatch 11/23/19 11/23/19 11/23/19 03:47 03:47 04:53 WBC RBC Hgb 9.4 L Hct MCH RDW Plt Count Lymph % (Auto) [place] % (Auto) [place] # Baso # Seg Neutrophils % Seg Neuts % (Manual) Lymphocytes % (Manual) Monocytes % (Manual) Seg Neutrophils # Seg Neutrophils # Man Lymphocytes # (Manual) Monocytes # (Manual) Eosinophils # (Manual) Basophils # (Manual) PT 17.0 H INR 1.36 H APTT 128.2 H* ABG pH ABG pO2 ABG HCO3 ABG O2 Saturation ABG Base Excess ABG Hemoglobin Oxyhemoglobin Sodium Potassium Chloride Carbon Dioxide 18 L BUN Creatinine 0.5 L Glucose 105 H POC Glucose Lactic Acid Calcium 8.3 L Ionized Calcium Phosphorus 2.40 L Magnesium Total Bilirubin 1.30 H AST 761 H ALT 158 H Alkaline Phosphatase 143 H Ammonia Total Creatine Kinase CK-MB (CK-2) CK-MB (CK-2) Rel Index Total Protein Albumin 2.8 L Urine WBC (Auto) Vancomycin Trough Salicylates Acetaminophen Plasma/Serum Alcohol Crossmatch 11/23/19 11/23/19 11/23/19 05:12 06:32 06:32 WBC 16.8 H RBC 3.31 L Hgb 8.9 L Hct 28.7 L MCH 27 L RDW 18.6 H Plt Count Lymph % (Auto) [place] % (Auto) [place] # Baso # Seg Neutrophils % Seg Neuts % (Manual) 94.0 H Lymphocytes % (Manual) 1.0 L Monocytes % (Manual) Seg Neutrophils # Seg Neutrophils # Man 15.8 H Lymphocytes # (Manual) 0.2 L Monocytes # (Manual) Eosinophils # (Manual) Basophils # (Manual) PT INR APTT ABG pH ABG pO2 ABG HCO3 ABG O2 Saturation ABG Base Excess -3.2 L ABG Hemoglobin 9.0 L Oxyhemoglobin 93.6 L Sodium Potassium Chloride Carbon Dioxide BUN Creatinine Glucose POC Glucose Lactic Acid Calcium Ionized Calcium 4.5 L Phosphorus Magnesium Total Bilirubin AST ALT Alkaline Phosphatase Ammonia Total Creatine Kinase CK-MB (CK-2) CK-MB (CK-2) Rel Index Total Protein Albumin Urine WBC (Auto) Vancomycin Trough Salicylates Acetaminophen Plasma/Serum Alcohol Crossmatch 11/23/19 11/24/19 11/24/19 06:32 04:35 04:35 WBC RBC Hgb Hct MCH RDW Plt Count Lymph % (Auto) [place] % (Auto) [place] # Baso # Seg Neutrophils % Seg Neuts % (Manual) Lymphocytes % (Manual) Monocytes % (Manual) Seg Neutrophils # Seg Neutrophils # Man Lymphocytes # (Manual) Monocytes # (Manual) Eosinophils # (Manual) Basophils # (Manual) PT INR APTT ABG pH ABG pO2 ABG HCO3 ABG O2 Saturation ABG Base Excess ABG Hemoglobin Oxyhemoglobin Sodium Potassium Chloride Carbon Dioxide BUN Creatinine Glucose POC Glucose Lactic Acid 3.30 H* Calcium Ionized Calcium Phosphorus Magnesium 1.40 L Total Bilirubin AST ALT Alkaline Phosphatase Ammonia 98.0 H Total Creatine Kinase CK-MB (CK-2) CK-MB (CK-2) Rel Index Total Protein Albumin Urine WBC (Auto) Vancomycin Trough Salicylates Acetaminophen Plasma/Serum Alcohol Crossmatch 11/24/19 11/25/19 11/25/19 05:22 04:34 05:05 WBC 17.3 H RBC 2.88 L Hgb 7.8 L Hct 24.6 L MCH 27 L RDW 18.5 H Plt Count Lymph % (Auto) 7.7 L [place] % (Auto) 9.7 H [place] # 1.7 H Baso # Seg Neutrophils % 82.2 H Seg Neuts % (Manual) Lymphocytes % (Manual) Monocytes % (Manual) Seg Neutrophils # 14.2 H Seg Neutrophils # Man Lymphocytes # (Manual) Monocytes # (Manual) Eosinophils # (Manual) Basophils # (Manual) PT INR APTT ABG pH 7.475 H ABG pO2 ABG HCO3 29.4 H 32.3 H ABG O2 Saturation ABG Base Excess 5.4 H 6.9 H ABG Hemoglobin 9.0 L 10.6 L Oxyhemoglobin 94.3 L Sodium Potassium Chloride Carbon Dioxide BUN Creatinine Glucose POC Glucose Lactic Acid Calcium Ionized Calcium Phosphorus Magnesium Total Bilirubin AST ALT Alkaline Phosphatase Ammonia Total Creatine Kinase CK-MB (CK-2) CK-MB (CK-2) Rel Index Total Protein Albumin Urine WBC (Auto) Vancomycin Trough Salicylates Acetaminophen Plasma/Serum Alcohol Crossmatch 11/25/19 11/25/19 11/26/19 05:05 22:46 03:31 WBC RBC Hgb Hct MCH RDW Plt Count Lymph % (Auto) [place] % (Auto) [place] # Baso # Seg Neutrophils % Seg Neuts % (Manual) Lymphocytes % (Manual) Monocytes % (Manual) Seg Neutrophils # Seg Neutrophils # Man Lymphocytes # (Manual) Monocytes # (Manual) Eosinophils # (Manual) Basophils # (Manual) PT INR APTT ABG pH 7.459 H ABG pO2 ABG HCO3 34.2 H ABG O2 Saturation ABG Base Excess 9.4 H ABG Hemoglobin 7.6 L Oxyhemoglobin 94.8 L Sodium 152 H D 147 H Potassium 2.3 L* D 2.8 L* D Chloride 107.8 H Carbon Dioxide 31 H D 33 H BUN Creatinine 0.6 L 0.6 L Glucose 148 H 177 H POC Glucose Lactic Acid Calcium Ionized Calcium Phosphorus Magnesium Total Bilirubin AST 105 H ALT 71 H Alkaline Phosphatase 155 H Ammonia Total Creatine Kinase CK-MB (CK-2) CK-MB (CK-2) Rel Index Total Protein 5.2 L D Albumin 2.9 L Urine WBC (Auto) Vancomycin Trough Salicylates Acetaminophen Plasma/Serum Alcohol Crossmatch 11/26/19 11/26/19 11/27/19 08:24 08:24 04:20 WBC 12.0 H RBC 3.00 L Hgb 8.0 L 9.3 L Hct 25.9 L 29.7 L MCH 27 L RDW 18.5 H Plt Count Lymph % (Auto) [place] % (Auto) [place] # Baso # Seg Neutrophils % Seg Neuts % (Manual) 89.0 H Lymphocytes % (Manual) 4.0 L Monocytes % (Manual) Seg Neutrophils # Seg Neutrophils # Man 10.7 H Lymphocytes # (Manual) 0.5 L Monocytes # (Manual) Eosinophils # (Manual) Basophils # (Manual) PT INR APTT ABG pH ABG pO2 ABG HCO3 ABG O2 Saturation ABG Base Excess ABG Hemoglobin Oxyhemoglobin Sodium 146 H Potassium 3.4 L D Chloride Carbon Dioxide BUN Creatinine 0.5 L Glucose 165 H POC Glucose Lactic Acid Calcium Ionized Calcium Phosphorus Magnesium Total Bilirubin AST 57 H ALT Alkaline Phosphatase 166 H Ammonia Total Creatine Kinase CK-MB (CK-2) CK-MB (CK-2) Rel Index Total Protein Albumin 2.9 L Urine WBC (Auto) Vancomycin Trough Salicylates Acetaminophen Plasma/Serum Alcohol Crossmatch 11/27/19 11/27/19 11/27/19 04:28 04:28 04:42 WBC RBC Hgb Hct MCH RDW Plt Count Lymph % (Auto) [place] % (Auto) [place] # Baso # Seg Neutrophils % Seg Neuts % (Manual) Lymphocytes % (Manual) Monocytes % (Manual) Seg Neutrophils # Seg Neutrophils # Man Lymphocytes # (Manual) Monocytes # (Manual) Eosinophils # (Manual) Basophils # (Manual) PT INR APTT ABG pH 7.470 H ABG pO2 74.0 L ABG HCO3 33.8 H ABG O2 Saturation ABG Base Excess 9.1 H ABG Hemoglobin 8.7 L Oxyhemoglobin 94.7 L Sodium 146 H Potassium 2.9 L* Chloride Carbon Dioxide BUN 25 H Creatinine Glucose 213 H POC Glucose Lactic Acid Calcium Ionized Calcium Phosphorus 1.00 L Magnesium Total Bilirubin AST ALT Alkaline Phosphatase Ammonia Total Creatine Kinase CK-MB (CK-2) CK-MB (CK-2) Rel Index Total Protein Albumin Urine WBC (Auto) Vancomycin Trough Salicylates Acetaminophen Plasma/Serum Alcohol Crossmatch 11/27/19 11/27/19 11/27/19 05:37 12:20 15:46 WBC RBC Hgb Hct MCH RDW Plt Count Lymph % (Auto) [place] % (Auto) [place] # Baso # Seg Neutrophils % Seg Neuts % (Manual) Lymphocytes % (Manual) Monocytes % (Manual) Seg Neutrophils # Seg Neutrophils # Man Lymphocytes # (Manual) Monocytes # (Manual) Eosinophils # (Manual) Basophils # (Manual) PT INR APTT ABG pH ABG pO2 ABG HCO3 ABG O2 Saturation ABG Base Excess ABG Hemoglobin Oxyhemoglobin Sodium 146 H Potassium 3.5 L D Chloride Carbon Dioxide BUN 24 H Creatinine 0.6 L Glucose 187 H POC Glucose 117 H 220 H Lactic Acid Calcium Ionized Calcium Phosphorus Magnesium Total Bilirubin AST ALT Alkaline Phosphatase Ammonia Total Creatine Kinase CK-MB (CK-2) CK-MB (CK-2) Rel Index Total Protein Albumin Urine WBC (Auto) Vancomycin Trough Salicylates Acetaminophen Plasma/Serum Alcohol Crossmatch 11/27/19 11/28/19 11/28/19 17:28 05:00 05:02 WBC RBC Hgb Hct MCH RDW Plt Count Lymph % (Auto) [place] % (Auto) [place] # Baso # Seg Neutrophils % Seg Neuts % (Manual) Lymphocytes % (Manual) Monocytes % (Manual) Seg Neutrophils # Seg Neutrophils # Man Lymphocytes # (Manual) Monocytes # (Manual) Eosinophils # (Manual) Basophils # (Manual) PT INR APTT ABG pH ABG pO2 72.4 L ABG HCO3 33.6 H ABG O2 Saturation 94.1 L ABG Base Excess 7.3 H ABG Hemoglobin Oxyhemoglobin 91.8 L Sodium 146 H Potassium 3.3 L Chloride Carbon Dioxide BUN 25 H Creatinine 0.6 L Glucose 176 H POC Glucose 198 H Lactic Acid Calcium Ionized Calcium Phosphorus Magnesium Total Bilirubin AST ALT Alkaline Phosphatase Ammonia Total Creatine Kinase CK-MB (CK-2) CK-MB (CK-2) Rel Index Total Protein Albumin Urine WBC (Auto) Vancomycin Trough Salicylates Acetaminophen Plasma/Serum Alcohol Crossmatch 11/28/19 11/28/19 11/29/19 05:02 18:55 10:43 WBC 15.2 H 19.0 H RBC 3.06 L 3.01 L Hgb 8.3 L 8.3 L Hct 27.0 L 26.4 L MCH 27 L RDW 19.0 H 19.7 H Plt Count 479 H 611 H Lymph % (Auto) [place] % (Auto) [place] # Baso # Seg Neutrophils % Seg Neuts % (Manual) 92.0 H Lymphocytes % (Manual) 2.0 L Monocytes % (Manual) Seg Neutrophils # Seg Neutrophils # Man 14.0 H Lymphocytes # (Manual) 0.3 L Monocytes # (Manual) Eosinophils # (Manual) Basophils # (Manual) PT INR APTT ABG pH ABG pO2 ABG HCO3 ABG O2 Saturation ABG Base Excess ABG Hemoglobin Oxyhemoglobin Sodium Potassium Chloride Carbon Dioxide BUN Creatinine Glucose POC Glucose 138 H Lactic Acid Calcium Ionized Calcium Phosphorus Magnesium Total Bilirubin AST ALT Alkaline Phosphatase Ammonia Total Creatine Kinase CK-MB (CK-2) CK-MB (CK-2) Rel Index Total Protein Albumin Urine WBC (Auto) Vancomycin Trough Salicylates Acetaminophen Plasma/Serum Alcohol Crossmatch 11/29/19 11/29/19 11/29/19 10:43 12:27 19:25 WBC RBC Hgb Hct MCH RDW Plt Count Lymph % (Auto) [place] % (Auto) [place] # Baso # Seg Neutrophils % Seg Neuts % (Manual) Lymphocytes % (Manual) Monocytes % (Manual) Seg Neutrophils # Seg Neutrophils # Man Lymphocytes # (Manual) Monocytes # (Manual) Eosinophils # (Manual) Basophils # (Manual) PT INR APTT ABG pH ABG pO2 ABG HCO3 ABG O2 Saturation ABG Base Excess ABG Hemoglobin Oxyhemoglobin Sodium Potassium 2.8 L* Chloride Carbon Dioxide BUN 20 H Creatinine 0.5 L Glucose 121 H POC Glucose 128 H 120 H Lactic Acid Calcium Ionized Calcium Phosphorus Magnesium Total Bilirubin AST ALT Alkaline Phosphatase Ammonia Total Creatine Kinase CK-MB (CK-2) CK-MB (CK-2) Rel Index Total Protein Albumin Urine WBC (Auto) Vancomycin Trough Salicylates Acetaminophen Plasma/Serum Alcohol Crossmatch 11/29/19 11/30/19 11/30/19 23:46 04:10 05:02 WBC RBC Hgb Hct MCH RDW Plt Count Lymph % (Auto) [place] % (Auto) [place] # Baso # Seg Neutrophils % Seg Neuts % (Manual) Lymphocytes % (Manual) Monocytes % (Manual) Seg Neutrophils # Seg Neutrophils # Man Lymphocytes # (Manual) Monocytes # (Manual) Eosinophils # (Manual) Basophils # (Manual) PT INR APTT ABG pH ABG pO2 76.3 L ABG HCO3 32.5 H ABG O2 Saturation ABG Base Excess 6.9 H ABG Hemoglobin 8.0 L Oxyhemoglobin 92.6 L Sodium Potassium Chloride Carbon Dioxide BUN Creatinine Glucose POC Glucose 116 H 128 H Lactic Acid Calcium Ionized Calcium Phosphorus Magnesium Total Bilirubin AST ALT Alkaline Phosphatase Ammonia Total Creatine Kinase CK-MB (CK-2) CK-MB (CK-2) Rel Index Total Protein Albumin Urine WBC (Auto) Vancomycin Trough Salicylates Acetaminophen Plasma/Serum Alcohol Crossmatch 11/30/19 11/30/19 11/30/19 05:25 05:25 12:59 WBC 18.4 H RBC 3.10 L Hgb 8.5 L Hct 27.5 L MCH 27 L RDW 20.9 H Plt Count 691 H Lymph % (Auto) 7.1 L [place] % (Auto) 7.7 H [place] # 1.4 H Baso # Seg Neutrophils % 83.4 H Seg Neuts % (Manual) Lymphocytes % (Manual) Monocytes % (Manual) Seg Neutrophils # 15.4 H Seg Neutrophils # Man Lymphocytes # (Manual) Monocytes # (Manual) Eosinophils # (Manual) Basophils # (Manual) PT INR APTT ABG pH ABG pO2 ABG HCO3 ABG O2 Saturation ABG Base Excess ABG Hemoglobin Oxyhemoglobin Sodium 146 H Potassium Chloride 107.2 H Carbon Dioxide BUN Creatinine 0.5 L Glucose 132 H POC Glucose 124 H Lactic Acid Calcium Ionized Calcium Phosphorus Magnesium Total Bilirubin AST 246 H ALT 274 H Alkaline Phosphatase 203 H Ammonia Total Creatine Kinase CK-MB (CK-2) CK-MB (CK-2) Rel Index Total Protein 5.4 L Albumin 2.9 L Urine WBC (Auto) Vancomycin Trough Salicylates Acetaminophen Plasma/Serum Alcohol Crossmatch 11/30/19 12/01/19 12/01/19 17:53 00:05 05:10 WBC RBC Hgb Hct MCH RDW Plt Count Lymph % (Auto) [place] % (Auto) [place] # Baso # Seg Neutrophils % Seg Neuts % (Manual) Lymphocytes % (Manual) Monocytes % (Manual) Seg Neutrophils # Seg Neutrophils # Man Lymphocytes # (Manual) Monocytes # (Manual) Eosinophils # (Manual) Basophils # (Manual) PT INR APTT ABG pH ABG pO2 ABG HCO3 ABG O2 Saturation ABG Base Excess ABG Hemoglobin Oxyhemoglobin Sodium Potassium Chloride Carbon Dioxide BUN Creatinine Glucose POC Glucose 113 H 143 H 145 H Lactic Acid Calcium Ionized Calcium Phosphorus Magnesium Total Bilirubin AST ALT Alkaline Phosphatase Ammonia Total Creatine Kinase CK-MB (CK-2) CK-MB (CK-2) Rel Index Total Protein Albumin Urine WBC (Auto) Vancomycin Trough Salicylates Acetaminophen Plasma/Serum Alcohol Crossmatch 12/01/19 12/01/19 12/01/19 05:33 08:23 08:23 WBC 22.7 H RBC 2.88 L Hgb 7.9 L Hct 25.2 L MCH 27 L RDW 21.0 H Plt Count 732 H Lymph % (Auto) [place] % (Auto) [place] # Baso # Seg Neutrophils % Seg Neuts % (Manual) 91.0 H Lymphocytes % (Manual) 3.0 L Monocytes % (Manual) Seg Neutrophils # Seg Neutrophils # Man 20.7 H Lymphocytes # (Manual) 0.7 L Monocytes # (Manual) 1.1 H Eosinophils # (Manual) Basophils # (Manual) PT INR APTT ABG pH ABG pO2 68.6 L ABG HCO3 34.1 H ABG O2 Saturation ABG Base Excess 9.0 H ABG Hemoglobin 6.5 L Oxyhemoglobin 94.7 L Sodium Potassium Chloride Carbon Dioxide BUN Creatinine 0.5 L Glucose 125 H POC Glucose Lactic Acid Calcium Ionized Calcium Phosphorus Magnesium Total Bilirubin AST ALT Alkaline Phosphatase Ammonia Total Creatine Kinase CK-MB (CK-2) CK-MB (CK-2) Rel Index Total Protein Albumin Urine WBC (Auto) Vancomycin Trough Salicylates Acetaminophen Plasma/Serum Alcohol Crossmatch 12/01/19 12/01/19 12/01/19 13:21 17:54 20:59 WBC RBC Hgb Hct MCH RDW Plt Count Lymph % (Auto) [place] % (Auto) [place] # Baso # Seg Neutrophils % Seg Neuts % (Manual) Lymphocytes % (Manual) Monocytes % (Manual) Seg Neutrophils # Seg Neutrophils # Man Lymphocytes # (Manual) Monocytes # (Manual) Eosinophils # (Manual) Basophils # (Manual) PT INR APTT ABG pH ABG pO2 78.3 L ABG HCO3 33.8 H ABG O2 Saturation 94.9 L ABG Base Excess 7.9 H ABG Hemoglobin 11.5 L Oxyhemoglobin 92.3 L Sodium Potassium Chloride Carbon Dioxide BUN Creatinine Glucose POC Glucose 111 H 115 H Lactic Acid Calcium Ionized Calcium Phosphorus Magnesium Total Bilirubin AST ALT Alkaline Phosphatase Ammonia Total Creatine Kinase CK-MB (CK-2) CK-MB (CK-2) Rel Index Total Protein Albumin Urine WBC (Auto) Vancomycin Trough Salicylates Acetaminophen Plasma/Serum Alcohol Crossmatch 12/02/19 12/03/19 12/04/19 12:55 20:00 04:26 WBC 15.2 H RBC 2.69 L Hgb 7.4 L Hct 23.6 L MCH 27 L RDW 19.9 H Plt Count 838 H Lymph % (Auto) [place] % (Auto) [place] # Baso # Seg Neutrophils % Seg Neuts % (Manual) Lymphocytes % (Manual) Monocytes % (Manual) Seg Neutrophils # Seg Neutrophils # Man Lymphocytes # (Manual) Monocytes # (Manual) Eosinophils # (Manual) Basophils # (Manual) PT INR APTT ABG pH ABG pO2 68.3 L ABG HCO3 33.5 H ABG O2 Saturation 93.5 L ABG Base Excess 8.4 H ABG Hemoglobin 7.3 L Oxyhemoglobin 90.9 L Sodium Potassium Chloride Carbon Dioxide BUN Creatinine Glucose POC Glucose 107 H Lactic Acid Calcium Ionized Calcium Phosphorus Magnesium Total Bilirubin AST ALT Alkaline Phosphatase Ammonia Total Creatine Kinase CK-MB (CK-2) CK-MB (CK-2) Rel Index Total Protein Albumin Urine WBC (Auto) Vancomycin Trough Salicylates Acetaminophen Plasma/Serum Alcohol Crossmatch 12/04/19 12/04/19 12/04/19 04:26 07:45 12:02 WBC 15.9 H RBC 2.88 L Hgb 7.9 L Hct 25.1 L MCH RDW 20.4 H Plt Count 839 H Lymph % (Auto) 11.3 L [place] % (Auto) 15.2 H [place] # 2.4 H Baso # Seg Neutrophils % 72.4 H Seg Neuts % (Manual) Lymphocytes % (Manual) Monocytes % (Manual) Seg Neutrophils # 11.5 H Seg Neutrophils # Man Lymphocytes # (Manual) Monocytes # (Manual) Eosinophils # (Manual) Basophils # (Manual) PT INR APTT ABG pH ABG pO2 ABG HCO3 ABG O2 Saturation ABG Base Excess ABG Hemoglobin Oxyhemoglobin Sodium Potassium Chloride 96.5 L Carbon Dioxide BUN 21 H Creatinine 0.6 L Glucose 107 H POC Glucose 138 H Lactic Acid Calcium Ionized Calcium Phosphorus Magnesium Total Bilirubin AST ALT Alkaline Phosphatase Ammonia Total Creatine Kinase CK-MB (CK-2) CK-MB (CK-2) Rel Index Total Protein Albumin Urine WBC (Auto) Vancomycin Trough Salicylates Acetaminophen Plasma/Serum Alcohol Crossmatch 12/04/19 12/05/19 12/05/19 18:16 11:55 18:36 WBC RBC Hgb Hct MCH RDW Plt Count Lymph % (Auto) [place] % (Auto) [place] # Baso # Seg Neutrophils % Seg Neuts % (Manual) Lymphocytes % (Manual) Monocytes % (Manual) Seg Neutrophils # Seg Neutrophils # Man Lymphocytes # (Manual) Monocytes # (Manual) Eosinophils # (Manual) Basophils # (Manual) PT INR APTT ABG pH ABG pO2 ABG HCO3 ABG O2 Saturation ABG Base Excess ABG Hemoglobin Oxyhemoglobin Sodium Potassium Chloride Carbon Dioxide BUN Creatinine Glucose POC Glucose 135 H 125 H 135 H Lactic Acid Calcium Ionized Calcium Phosphorus Magnesium Total Bilirubin AST ALT Alkaline Phosphatase Ammonia Total Creatine Kinase CK-MB (CK-2) CK-MB (CK-2) Rel Index Total Protein Albumin Urine WBC (Auto) Vancomycin Trough Salicylates Acetaminophen Plasma/Serum Alcohol Crossmatch 12/05/19 12/06/19 12/06/19 23:30 04:14 05:43 WBC RBC Hgb Hct MCH RDW Plt Count Lymph % (Auto) [place] % (Auto) [place] # Baso # Seg Neutrophils % Seg Neuts % (Manual) Lymphocytes % (Manual) Monocytes % (Manual) Seg Neutrophils # Seg Neutrophils # Man Lymphocytes # (Manual) Monocytes # (Manual) Eosinophils # (Manual) Basophils # (Manual) PT INR APTT ABG pH ABG pO2 ABG HCO3 ABG O2 Saturation ABG Base Excess ABG Hemoglobin Oxyhemoglobin Sodium Potassium 5.6 H Chloride 95.0 L Carbon Dioxide BUN 48 H Creatinine 1.3 H D Glucose POC Glucose 126 H 121 H Lactic Acid Calcium Ionized Calcium Phosphorus Magnesium Total Bilirubin AST 89 H ALT 98 H Alkaline Phosphatase 476 H Ammonia Total Creatine Kinase CK-MB (CK-2) CK-MB (CK-2) Rel Index Total Protein Albumin 2.8 L Urine WBC (Auto) Vancomycin Trough Salicylates Acetaminophen Plasma/Serum Alcohol Crossmatch 12/06/19 12/06/19 12/07/19 10:39 14:34 00:19 WBC 17.3 H RBC 2.60 L Hgb 7.1 L Hct 22.7 L MCH 27 L RDW 20.1 H Plt Count 832 H Lymph % (Auto) [place] % (Auto) [place] # Baso # Seg Neutrophils % Seg Neuts % (Manual) Lymphocytes % (Manual) Monocytes % (Manual) Seg Neutrophils # Seg Neutrophils # Man Lymphocytes # (Manual) Monocytes # (Manual) Eosinophils # (Manual) Basophils # (Manual) PT INR APTT ABG pH ABG pO2 ABG HCO3 ABG O2 Saturation ABG Base Excess ABG Hemoglobin Oxyhemoglobin Sodium Potassium Chloride Carbon Dioxide BUN Creatinine Glucose POC Glucose 128 H 136 H Lactic Acid Calcium Ionized Calcium Phosphorus Magnesium Total Bilirubin AST ALT Alkaline Phosphatase Ammonia Total Creatine Kinase CK-MB (CK-2) CK-MB (CK-2) Rel Index Total Protein Albumin Urine WBC (Auto) Vancomycin Trough Salicylates Acetaminophen Plasma/Serum Alcohol Crossmatch 12/07/19 12/07/19 12/07/19 03:44 03:44 05:53 WBC 16.2 H RBC 2.56 L Hgb 7.1 L Hct 22.3 L MCH RDW 19.4 H Plt Count 782 H Lymph % (Auto) [place] % (Auto) [place] # Baso # Seg Neutrophils % Seg Neuts % (Manual) Lymphocytes % (Manual) Monocytes % (Manual) Seg Neutrophils # Seg Neutrophils # Man Lymphocytes # (Manual) Monocytes # (Manual) Eosinophils # (Manual) Basophils # (Manual) PT INR APTT ABG pH ABG pO2 ABG HCO3 ABG O2 Saturation ABG Base Excess ABG Hemoglobin Oxyhemoglobin Sodium Potassium Chloride 95.6 L Carbon Dioxide BUN 56 H Creatinine 1.4 H Glucose 120 H POC Glucose 128 H Lactic Acid Calcium 10.3 H Ionized Calcium Phosphorus Magnesium Total Bilirubin AST ALT Alkaline Phosphatase Ammonia Total Creatine Kinase CK-MB (CK-2) CK-MB (CK-2) Rel Index Total Protein Albumin Urine WBC (Auto) Vancomycin Trough Salicylates Acetaminophen Plasma/Serum Alcohol Crossmatch 12/07/19 12/07/19 12/08/19 12:54 23:47 00:20 WBC RBC Hgb Hct MCH RDW Plt Count Lymph % (Auto) [place] % (Auto) [place] # Baso # Seg Neutrophils % Seg Neuts % (Manual) Lymphocytes % (Manual) Monocytes % (Manual) Seg Neutrophils # Seg Neutrophils # Man Lymphocytes # (Manual) Monocytes # (Manual) Eosinophils # (Manual) Basophils # (Manual) PT INR APTT ABG pH ABG pO2 ABG HCO3 ABG O2 Saturation ABG Base Excess ABG Hemoglobin Oxyhemoglobin Sodium Potassium Chloride Carbon Dioxide BUN Creatinine Glucose POC Glucose 128 H 130 H 124 H Lactic Acid Calcium Ionized Calcium Phosphorus Magnesium Total Bilirubin AST ALT Alkaline Phosphatase Ammonia Total Creatine Kinase CK-MB (CK-2) CK-MB (CK-2) Rel Index Total Protein Albumin Urine WBC (Auto) Vancomycin Trough Salicylates Acetaminophen Plasma/Serum Alcohol Crossmatch 12/08/19 12/08/19 12/08/19 06:38 12:04 18:26 WBC RBC Hgb Hct MCH RDW Plt Count Lymph % (Auto) [place] % (Auto) [place] # Baso # Seg Neutrophils % Seg Neuts % (Manual) Lymphocytes % (Manual) Monocytes % (Manual) Seg Neutrophils # Seg Neutrophils # Man Lymphocytes # (Manual) Monocytes # (Manual) Eosinophils # (Manual) Basophils # (Manual) PT INR APTT ABG pH ABG pO2 ABG HCO3 ABG O2 Saturation ABG Base Excess ABG Hemoglobin Oxyhemoglobin Sodium Potassium Chloride Carbon Dioxide BUN Creatinine Glucose POC Glucose 137 H 129 H 150 H Lactic Acid Calcium Ionized Calcium Phosphorus Magnesium Total Bilirubin AST ALT Alkaline Phosphatase Ammonia Total Creatine Kinase CK-MB (CK-2) CK-MB (CK-2) Rel Index Total Protein Albumin Urine WBC (Auto) Vancomycin Trough Salicylates Acetaminophen Plasma/Serum Alcohol Crossmatch 12/09/19 12/09/19 12/09/19 00:56 05:34 06:13 WBC RBC Hgb Hct MCH RDW Plt Count Lymph % (Auto) [place] % (Auto) [place] # Baso # Seg Neutrophils % Seg Neuts % (Manual) Lymphocytes % (Manual) Monocytes % (Manual) Seg Neutrophils # Seg Neutrophils # Man Lymphocytes # (Manual) Monocytes # (Manual) Eosinophils # (Manual) Basophils # (Manual) PT INR APTT ABG pH ABG pO2 ABG HCO3 ABG O2 Saturation ABG Base Excess ABG Hemoglobin Oxyhemoglobin Sodium 146 H Potassium Chloride Carbon Dioxide BUN 66 H Creatinine 1.9 H Glucose 116 H POC Glucose 130 H 130 H Lactic Acid Calcium Ionized Calcium Phosphorus Magnesium Total Bilirubin AST ALT Alkaline Phosphatase Ammonia Total Creatine Kinase CK-MB (CK-2) CK-MB (CK-2) Rel Index Total Protein Albumin Urine WBC (Auto) Vancomycin Trough Salicylates Acetaminophen Plasma/Serum Alcohol Crossmatch 12/09/19 12/09/19 12/10/19 11:52 17:50 00:14 WBC RBC Hgb Hct MCH RDW Plt Count Lymph % (Auto) [place] % (Auto) [place] # Baso # Seg Neutrophils % Seg Neuts % (Manual) Lymphocytes % (Manual) Monocytes % (Manual) Seg Neutrophils # Seg Neutrophils # Man Lymphocytes # (Manual) Monocytes # (Manual) Eosinophils # (Manual) Basophils # (Manual) PT INR APTT ABG pH ABG pO2 ABG HCO3 ABG O2 Saturation ABG Base Excess ABG Hemoglobin Oxyhemoglobin Sodium Potassium Chloride Carbon Dioxide BUN Creatinine Glucose POC Glucose 135 H 120 H 116 H Lactic Acid Calcium Ionized Calcium Phosphorus Magnesium Total Bilirubin AST ALT Alkaline Phosphatase Ammonia Total Creatine Kinase CK-MB (CK-2) CK-MB (CK-2) Rel Index Total Protein Albumin Urine WBC (Auto) Vancomycin Trough Salicylates Acetaminophen Plasma/Serum Alcohol Crossmatch 12/10/19 12/10/19 12/10/19 05:38 11:38 17:34 WBC RBC Hgb Hct MCH RDW Plt Count Lymph % (Auto) [place] % (Auto) [place] # Baso # Seg Neutrophils % Seg Neuts % (Manual) Lymphocytes % (Manual) Monocytes % (Manual) Seg Neutrophils # Seg Neutrophils # Man Lymphocytes # (Manual) Monocytes # (Manual) Eosinophils # (Manual) Basophils # (Manual) PT INR APTT ABG pH ABG pO2 ABG HCO3 ABG O2 Saturation ABG Base Excess ABG Hemoglobin Oxyhemoglobin Sodium Potassium Chloride Carbon Dioxide BUN Creatinine Glucose POC Glucose 115 H 112 H 130 H Lactic Acid Calcium Ionized Calcium Phosphorus Magnesium Total Bilirubin AST ALT Alkaline Phosphatase Ammonia Total Creatine Kinase CK-MB (CK-2) CK-MB (CK-2) Rel Index Total Protein Albumin Urine WBC (Auto) Vancomycin Trough Salicylates Acetaminophen Plasma/Serum Alcohol Crossmatch 12/11/19 12/11/19 12/11/19 00:20 05:31 12:22 WBC RBC Hgb Hct MCH RDW Plt Count Lymph % (Auto) [place] % (Auto) [place] # Baso # Seg Neutrophils % Seg Neuts % (Manual) Lymphocytes % (Manual) Monocytes % (Manual) Seg Neutrophils # Seg Neutrophils # Man Lymphocytes # (Manual) Monocytes # (Manual) Eosinophils # (Manual) Basophils # (Manual) PT INR APTT ABG pH ABG pO2 ABG HCO3 ABG O2 Saturation ABG Base Excess ABG Hemoglobin Oxyhemoglobin Sodium Potassium Chloride Carbon Dioxide BUN Creatinine Glucose POC Glucose 124 H 132 H 128 H Lactic Acid Calcium Ionized Calcium Phosphorus Magnesium Total Bilirubin AST ALT Alkaline Phosphatase Ammonia Total Creatine Kinase CK-MB (CK-2) CK-MB (CK-2) Rel Index Total Protein Albumin Urine WBC (Auto) Vancomycin Trough Salicylates Acetaminophen Plasma/Serum Alcohol Crossmatch 12/11/19 12/11/19 12/12/19 18:04 23:42 03:51 WBC RBC Hgb Hct MCH RDW Plt Count Lymph % (Auto) [place] % (Auto) [place] # Baso # Seg Neutrophils % Seg Neuts % (Manual) Lymphocytes % (Manual) Monocytes % (Manual) Seg Neutrophils # Seg Neutrophils # Man Lymphocytes # (Manual) Monocytes # (Manual) Eosinophils # (Manual) Basophils # (Manual) PT INR APTT ABG pH ABG pO2 ABG HCO3 ABG O2 Saturation ABG Base Excess ABG Hemoglobin Oxyhemoglobin Sodium 149 H Potassium Chloride Carbon Dioxide 20 L D BUN 77 H Creatinine 2.8 H Glucose POC Glucose 133 H 154 H Lactic Acid Calcium Ionized Calcium Phosphorus Magnesium Total Bilirubin AST ALT Alkaline Phosphatase Ammonia Total Creatine Kinase CK-MB (CK-2) CK-MB (CK-2) Rel Index Total Protein Albumin Urine WBC (Auto) Vancomycin Trough Salicylates Acetaminophen Plasma/Serum Alcohol Crossmatch 12/12/19 12/12/19 12/12/19 05:18 05:26 10:30 WBC 18.0 H RBC 2.51 L Hgb 6.8 L Hct 22.0 L MCH 27 L RDW 19.9 H Plt Count 582 H Lymph % (Auto) [place] % (Auto) [place] # Baso # Seg Neutrophils % Seg Neuts % (Manual) Lymphocytes % (Manual) Monocytes % (Manual) Seg Neutrophils # Seg Neutrophils # Man Lymphocytes # (Manual) Monocytes # (Manual) Eosinophils # (Manual) Basophils # (Manual) PT INR APTT ABG pH ABG pO2 ABG HCO3 ABG O2 Saturation ABG Base Excess ABG Hemoglobin Oxyhemoglobin Sodium Potassium Chloride Carbon Dioxide BUN Creatinine Glucose POC Glucose 135 H Lactic Acid Calcium Ionized Calcium Phosphorus Magnesium Total Bilirubin AST ALT Alkaline Phosphatase Ammonia Total Creatine Kinase CK-MB (CK-2) CK-MB (CK-2) Rel Index Total Protein Albumin Urine WBC (Auto) Vancomycin Trough Salicylates Acetaminophen Plasma/Serum Alcohol Crossmatch See Detail 12/12/19 12/12/19 12/12/19 11:44 18:10 23:21 WBC RBC Hgb Hct MCH RDW Plt Count Lymph % (Auto) [place] % (Auto) [place] # Baso # Seg Neutrophils % Seg Neuts % (Manual) Lymphocytes % (Manual) Monocytes % (Manual) Seg Neutrophils # Seg Neutrophils # Man Lymphocytes # (Manual) Monocytes # (Manual) Eosinophils # (Manual) Basophils # (Manual) PT INR APTT ABG pH ABG pO2 ABG HCO3 ABG O2 Saturation ABG Base Excess ABG Hemoglobin Oxyhemoglobin Sodium Potassium Chloride Carbon Dioxide BUN Creatinine Glucose POC Glucose 108 H 107 H 126 H Lactic Acid Calcium Ionized Calcium Phosphorus Magnesium Total Bilirubin AST ALT Alkaline Phosphatase Ammonia Total Creatine Kinase CK-MB (CK-2) CK-MB (CK-2) Rel Index Total Protein Albumin Urine WBC (Auto) Vancomycin Trough Salicylates Acetaminophen Plasma/Serum Alcohol Crossmatch 12/13/19 12/13/19 12/13/19 05:41 07:48 07:48 WBC 38.3 H RBC 2.37 L Hgb 6.3 L Hct 20.9 L MCH 27 L RDW 20.2 H Plt Count 546 H Lymph % (Auto) [place] % (Auto) [place] # Baso # Seg Neutrophils % Seg Neuts % (Manual) 93.0 H Lymphocytes % (Manual) 1.0 L Monocytes % (Manual) Seg Neutrophils # Seg Neutrophils # Man 35.6 H Lymphocytes # (Manual) 0.4 L Monocytes # (Manual) Eosinophils # (Manual) Basophils # (Manual) 0.4 H PT INR APTT ABG pH ABG pO2 ABG HCO3 ABG O2 Saturation ABG Base Excess ABG Hemoglobin Oxyhemoglobin Sodium 152 H Potassium 3.1 L D Chloride 111.9 H Carbon Dioxide 21 L BUN 53 H Creatinine 1.9 H Glucose 141 H POC Glucose 128 H Lactic Acid Calcium Ionized Calcium Phosphorus Magnesium Total Bilirubin AST ALT Alkaline Phosphatase 316 H Ammonia Total Creatine Kinase CK-MB (CK-2) CK-MB (CK-2) Rel Index Total Protein Albumin 2.4 L Urine WBC (Auto) Vancomycin Trough Salicylates Acetaminophen Plasma/Serum Alcohol Crossmatch 12/13/19 12/13/19 12/14/19 18:17 23:19 05:36 WBC RBC Hgb Hct MCH RDW Plt Count Lymph % (Auto) [place] % (Auto) [place] # Baso # Seg Neutrophils % Seg Neuts % (Manual) Lymphocytes % (Manual) Monocytes % (Manual) Seg Neutrophils # Seg Neutrophils # Man Lymphocytes # (Manual) Monocytes # (Manual) Eosinophils # (Manual) Basophils # (Manual) PT INR APTT ABG pH ABG pO2 ABG HCO3 ABG O2 Saturation ABG Base Excess ABG Hemoglobin Oxyhemoglobin Sodium Potassium Chloride Carbon Dioxide BUN Creatinine Glucose POC Glucose 141 H 158 H 182 H Lactic Acid Calcium Ionized Calcium Phosphorus Magnesium Total Bilirubin AST ALT Alkaline Phosphatase Ammonia Total Creatine Kinase CK-MB (CK-2) CK-MB (CK-2) Rel Index Total Protein Albumin Urine WBC (Auto) Vancomycin Trough Salicylates Acetaminophen Plasma/Serum Alcohol Crossmatch 12/14/19 12/14/19 12/14/19 08:48 08:48 10:31 WBC 33.3 H RBC 2.70 L Hgb 7.9 L 8.0 L Hct 25.3 L 24.0 L MCH RDW 19.2 H Plt Count 476 H Lymph % (Auto) [place] % (Auto) [place] # Baso # Seg Neutrophils % Seg Neuts % (Manual) Lymphocytes % (Manual) Monocytes % (Manual) Seg Neutrophils # Seg Neutrophils # Man Lymphocytes # (Manual) Monocytes # (Manual) Eosinophils # (Manual) Basophils # (Manual) PT INR APTT ABG pH ABG pO2 ABG HCO3 ABG O2 Saturation ABG Base Excess ABG Hemoglobin Oxyhemoglobin Sodium 153 H Potassium 2.5 L* Chloride 114.9 H Carbon Dioxide 20 L BUN 38 H Creatinine 1.4 H Glucose 177 H POC Glucose Lactic Acid Calcium Ionized Calcium Phosphorus Magnesium Total Bilirubin AST ALT Alkaline Phosphatase Ammonia Total Creatine Kinase CK-MB (CK-2) CK-MB (CK-2) Rel Index Total Protein Albumin Urine WBC (Auto) Vancomycin Trough Salicylates Acetaminophen Plasma/Serum Alcohol Crossmatch 12/14/19 12/14/19 12/14/19 12:57 16:15 17:50 WBC RBC Hgb Hct MCH RDW Plt Count Lymph % (Auto) [place] % (Auto) [place] # Baso # Seg Neutrophils % Seg Neuts % (Manual) Lymphocytes % (Manual) Monocytes % (Manual) Seg Neutrophils # Seg Neutrophils # Man Lymphocytes # (Manual) Monocytes # (Manual) Eosinophils # (Manual) Basophils # (Manual) PT INR APTT ABG pH ABG pO2 73.6 L ABG HCO3 ABG O2 Saturation ABG Base Excess ABG Hemoglobin 7.6 L Oxyhemoglobin 94.0 L Sodium Potassium Chloride Carbon Dioxide BUN Creatinine Glucose POC Glucose 174 H 150 H Lactic Acid Calcium Ionized Calcium Phosphorus Magnesium Total Bilirubin AST ALT Alkaline Phosphatase Ammonia Total Creatine Kinase CK-MB (CK-2) CK-MB (CK-2) Rel Index Total Protein Albumin Urine WBC (Auto) Vancomycin Trough Salicylates Acetaminophen Plasma/Serum Alcohol Crossmatch 12/15/19 12/15/19 12/15/19 00:28 05:27 07:23 WBC 30.0 H RBC 3.11 L Hgb 8.6 L Hct 27.7 L MCH RDW 20.0 H Plt Count 473 H Lymph % (Auto) [place] % (Auto) [place] # Baso # Seg Neutrophils % Seg Neuts % (Manual) Lymphocytes % (Manual) Monocytes % (Manual) Seg Neutrophils # Seg Neutrophils # Man Lymphocytes # (Manual) Monocytes # (Manual) Eosinophils # (Manual) Basophils # (Manual) PT INR APTT ABG pH ABG pO2 ABG HCO3 ABG O2 Saturation ABG Base Excess ABG Hemoglobin Oxyhemoglobin Sodium Potassium Chloride Carbon Dioxide BUN Creatinine Glucose POC Glucose 167 H 148 H Lactic Acid Calcium Ionized Calcium Phosphorus Magnesium Total Bilirubin AST ALT Alkaline Phosphatase Ammonia Total Creatine Kinase CK-MB (CK-2) CK-MB (CK-2) Rel Index Total Protein Albumin Urine WBC (Auto) Vancomycin Trough Salicylates Acetaminophen Plasma/Serum Alcohol Crossmatch 12/15/19 12/15/19 12/15/19 07:23 12:21 17:41 WBC RBC Hgb Hct MCH RDW Plt Count Lymph % (Auto) [place] % (Auto) [place] # Baso # Seg Neutrophils % Seg Neuts % (Manual) Lymphocytes % (Manual) Monocytes % (Manual) Seg Neutrophils # Seg Neutrophils # Man Lymphocytes # (Manual) Monocytes # (Manual) Eosinophils # (Manual) Basophils # (Manual) PT INR APTT ABG pH ABG pO2 ABG HCO3 ABG O2 Saturation ABG Base Excess ABG Hemoglobin Oxyhemoglobin Sodium 147 H Potassium 3.5 L D Chloride 111.2 H Carbon Dioxide 19 L BUN 29 H Creatinine Glucose 126 H POC Glucose 154 H 144 H Lactic Acid Calcium Ionized Calcium Phosphorus Magnesium Total Bilirubin AST ALT Alkaline Phosphatase Ammonia Total Creatine Kinase CK-MB (CK-2) CK-MB (CK-2) Rel Index Total Protein Albumin Urine WBC (Auto) Vancomycin Trough Salicylates Acetaminophen Plasma/Serum Alcohol Crossmatch 12/16/19 12/16/19 12/16/19 00:22 05:30 05:44 WBC 30.8 H RBC 2.58 L Hgb 7.1 L Hct 22.7 L MCH RDW 19.6 H Plt Count 451 H Lymph % (Auto) [place] % (Auto) [place] # Baso # Seg Neutrophils % Seg Neuts % (Manual) Lymphocytes % (Manual) Monocytes % (Manual) Seg Neutrophils # Seg Neutrophils # Man Lymphocytes # (Manual) Monocytes # (Manual) Eosinophils # (Manual) Basophils # (Manual) PT INR APTT ABG pH ABG pO2 ABG HCO3 ABG O2 Saturation ABG Base Excess ABG Hemoglobin Oxyhemoglobin Sodium Potassium Chloride Carbon Dioxide BUN Creatinine Glucose POC Glucose 139 H 126 H Lactic Acid Calcium Ionized Calcium Phosphorus Magnesium Total Bilirubin AST ALT Alkaline Phosphatase Ammonia Total Creatine Kinase CK-MB (CK-2) CK-MB (CK-2) Rel Index Total Protein Albumin Urine WBC (Auto) Vancomycin Trough Salicylates Acetaminophen Plasma/Serum Alcohol Crossmatch 12/16/19 12/16/19 12/16/19 05:44 11:48 17:37 WBC RBC Hgb Hct MCH RDW Plt Count Lymph % (Auto) [place] % (Auto) [place] # Baso # Seg Neutrophils % Seg Neuts % (Manual) Lymphocytes % (Manual) Monocytes % (Manual) Seg Neutrophils # Seg Neutrophils # Man Lymphocytes # (Manual) Monocytes # (Manual) Eosinophils # (Manual) Basophils # (Manual) PT INR APTT ABG pH ABG pO2 ABG HCO3 ABG O2 Saturation ABG Base Excess ABG Hemoglobin Oxyhemoglobin Sodium Potassium 3.4 L Chloride 109.2 H Carbon Dioxide 19 L BUN 27 H Creatinine Glucose 124 H POC Glucose 125 H 148 H Lactic Acid Calcium Ionized Calcium Phosphorus Magnesium Total Bilirubin AST ALT Alkaline Phosphatase Ammonia Total Creatine Kinase CK-MB (CK-2) CK-MB (CK-2) Rel Index Total Protein Albumin Urine WBC (Auto) Vancomycin Trough Salicylates Acetaminophen Plasma/Serum Alcohol Crossmatch 12/16/19 12/17/19 12/17/19 23:43 05:28 12:47 WBC RBC Hgb Hct MCH RDW Plt Count Lymph % (Auto) [place] % (Auto) [place] # Baso # Seg Neutrophils % Seg Neuts % (Manual) Lymphocytes % (Manual) Monocytes % (Manual) Seg Neutrophils # Seg Neutrophils # Man Lymphocytes # (Manual) Monocytes # (Manual) Eosinophils # (Manual) Basophils # (Manual) PT INR APTT ABG pH ABG pO2 ABG HCO3 ABG O2 Saturation ABG Base Excess ABG Hemoglobin Oxyhemoglobin Sodium Potassium Chloride Carbon Dioxide BUN Creatinine Glucose POC Glucose 142 H 140 H 125 H Lactic Acid Calcium Ionized Calcium Phosphorus Magnesium Total Bilirubin AST ALT Alkaline Phosphatase Ammonia Total Creatine Kinase CK-MB (CK-2) CK-MB (CK-2) Rel Index Total Protein Albumin Urine WBC (Auto) Vancomycin Trough Salicylates Acetaminophen Plasma/Serum Alcohol Crossmatch 12/17/19 12/17/19 12/17/19 17:05 18:00 Unknown WBC RBC Hgb Hct MCH RDW Plt Count Lymph % (Auto) [place] % (Auto) [place] # Baso # Seg Neutrophils % Seg Neuts % (Manual) Lymphocytes % (Manual) Monocytes % (Manual) Seg Neutrophils # Seg Neutrophils # Man Lymphocytes # (Manual) Monocytes # (Manual) Eosinophils # (Manual) Basophils # (Manual) PT INR APTT ABG pH ABG pO2 68.1 L ABG HCO3 ABG O2 Saturation 93.7 L ABG Base Excess ABG Hemoglobin 5.0 L Oxyhemoglobin 91.7 L Sodium Potassium Chloride Carbon Dioxide BUN Creatinine Glucose POC Glucose 140 H Lactic Acid Calcium Ionized Calcium Phosphorus Magnesium Total Bilirubin AST ALT Alkaline Phosphatase Ammonia Total Creatine Kinase CK-MB (CK-2) CK-MB (CK-2) Rel Index Total Protein Albumin Urine WBC (Auto) Vancomycin Trough Salicylates Acetaminophen Plasma/Serum Alcohol Crossmatch 12/18/19 12/18/19 12/18/19 00:16 04:53 04:53 WBC 28.6 H RBC 2.27 L Hgb 6.3 L Hct 19.5 L* MCH RDW 20.0 H Plt Count 497 H Lymph % (Auto) [place] % (Auto) [place] # Baso # Seg Neutrophils % Seg Neuts % (Manual) Lymphocytes % (Manual) Monocytes % (Manual) Seg Neutrophils # Seg Neutrophils # Man Lymphocytes # (Manual) Monocytes # (Manual) Eosinophils # (Manual) Basophils # (Manual) PT INR APTT ABG pH ABG pO2 ABG HCO3 ABG O2 Saturation ABG Base Excess ABG Hemoglobin Oxyhemoglobin Sodium Potassium Chloride 107.9 H Carbon Dioxide 20 L BUN 27 H Creatinine 0.6 L Glucose 116 H POC Glucose 123 H Lactic Acid Calcium Ionized Calcium Phosphorus Magnesium Total Bilirubin AST ALT Alkaline Phosphatase Ammonia Total Creatine Kinase CK-MB (CK-2) CK-MB (CK-2) Rel Index Total Protein Albumin Urine WBC (Auto) Vancomycin Trough Salicylates Acetaminophen Plasma/Serum Alcohol Crossmatch 12/18/19 12/18/19 12/18/19 06:38 11:22 12:08 WBC RBC Hgb Hct MCH RDW Plt Count Lymph % (Auto) [place] % (Auto) [place] # Baso # Seg Neutrophils % Seg Neuts % (Manual) Lymphocytes % (Manual) Monocytes % (Manual) Seg Neutrophils # Seg Neutrophils # Man Lymphocytes # (Manual) Monocytes # (Manual) Eosinophils # (Manual) Basophils # (Manual) PT INR APTT ABG pH ABG pO2 ABG HCO3 ABG O2 Saturation ABG Base Excess ABG Hemoglobin Oxyhemoglobin Sodium Potassium Chloride Carbon Dioxide BUN Creatinine Glucose POC Glucose 120 H 127 H Lactic Acid Calcium Ionized Calcium Phosphorus Magnesium Total Bilirubin AST ALT Alkaline Phosphatase Ammonia Total Creatine Kinase CK-MB (CK-2) CK-MB (CK-2) Rel Index Total Protein Albumin Urine WBC (Auto) Vancomycin Trough Salicylates Acetaminophen Plasma/Serum Alcohol Crossmatch See Detail 12/18/19 12/18/19 12/18/19 14:05 17:49 23:53 WBC RBC Hgb Hct MCH RDW Plt Count Lymph % (Auto) [place] % (Auto) [place] # Baso # Seg Neutrophils % Seg Neuts % (Manual) Lymphocytes % (Manual) Monocytes % (Manual) Seg Neutrophils # Seg Neutrophils # Man Lymphocytes # (Manual) Monocytes # (Manual) Eosinophils # (Manual) Basophils # (Manual) PT INR APTT ABG pH 7.267 L ABG pO2 69.8 L ABG HCO3 ABG O2 Saturation 88.4 L ABG Base Excess ABG Hemoglobin 7.1 L Oxyhemoglobin 86.4 L Sodium Potassium Chloride Carbon Dioxide BUN Creatinine Glucose POC Glucose 157 H 128 H Lactic Acid Calcium Ionized Calcium Phosphorus Magnesium Total Bilirubin AST ALT Alkaline Phosphatase Ammonia Total Creatine Kinase CK-MB (CK-2) CK-MB (CK-2) Rel Index Total Protein Albumin Urine WBC (Auto) Vancomycin Trough Salicylates Acetaminophen Plasma/Serum Alcohol Crossmatch 12/19/19 12/19/19 12/19/19 03:37 03:37 05:25 WBC 31.3 H RBC 2.60 L Hgb 7.6 L Hct 23.0 L MCH RDW 19.4 H Plt Count 530 H Lymph % (Auto) [place] % (Auto) [place] # Baso # Seg Neutrophils % Seg Neuts % (Manual) Lymphocytes % (Manual) Monocytes % (Manual) Seg Neutrophils # Seg Neutrophils # Man Lymphocytes # (Manual) Monocytes # (Manual) Eosinophils # (Manual) Basophils # (Manual) PT INR APTT ABG pH ABG pO2 ABG HCO3 ABG O2 Saturation ABG Base Excess ABG Hemoglobin Oxyhemoglobin Sodium Potassium Chloride Carbon Dioxide 18 L BUN 36 H Creatinine Glucose 111 H POC Glucose 123 H Lactic Acid Calcium Ionized Calcium Phosphorus Magnesium Total Bilirubin AST ALT Alkaline Phosphatase Ammonia Total Creatine Kinase CK-MB (CK-2) CK-MB (CK-2) Rel Index Total Protein Albumin Urine WBC (Auto) Vancomycin Trough Salicylates Acetaminophen Plasma/Serum Alcohol Crossmatch 12/19/19 12/19/19 12/20/19 12:59 18:33 00:00 WBC RBC Hgb Hct MCH RDW Plt Count Lymph % (Auto) [place] % (Auto) [place] # Baso # Seg Neutrophils % Seg Neuts % (Manual) Lymphocytes % (Manual) Monocytes % (Manual) Seg Neutrophils # Seg Neutrophils # Man Lymphocytes # (Manual) Monocytes # (Manual) Eosinophils # (Manual) Basophils # (Manual) PT INR APTT ABG pH ABG pO2 ABG HCO3 ABG O2 Saturation ABG Base Excess ABG Hemoglobin Oxyhemoglobin Sodium Potassium Chloride Carbon Dioxide BUN Creatinine Glucose POC Glucose 130 H 118 H 135 H Lactic Acid Calcium Ionized Calcium Phosphorus Magnesium Total Bilirubin AST ALT Alkaline Phosphatase Ammonia Total Creatine Kinase CK-MB (CK-2) CK-MB (CK-2) Rel Index Total Protein Albumin Urine WBC (Auto) Vancomycin Trough Salicylates Acetaminophen Plasma/Serum Alcohol Crossmatch 12/20/19 12/20/19 12/20/19 05:46 12:31 18:07 WBC RBC Hgb Hct MCH RDW Plt Count Lymph % (Auto) [place] % (Auto) [place] # Baso # Seg Neutrophils % Seg Neuts % (Manual) Lymphocytes % (Manual) Monocytes % (Manual) Seg Neutrophils # Seg Neutrophils # Man Lymphocytes # (Manual) Monocytes # (Manual) Eosinophils # (Manual) Basophils # (Manual) PT INR APTT ABG pH ABG pO2 ABG HCO3 ABG O2 Saturation ABG Base Excess ABG Hemoglobin Oxyhemoglobin Sodium Potassium Chloride Carbon Dioxide BUN Creatinine Glucose POC Glucose 131 H 128 H 134 H Lactic Acid Calcium Ionized Calcium Phosphorus Magnesium Total Bilirubin AST ALT Alkaline Phosphatase Ammonia Total Creatine Kinase CK-MB (CK-2) CK-MB (CK-2) Rel Index Total Protein Albumin Urine WBC (Auto) Vancomycin Trough Salicylates Acetaminophen Plasma/Serum Alcohol Crossmatch 12/21/19 12/21/19 12/21/19 03:28 03:28 07:21 WBC 29.4 H RBC 2.30 L Hgb 6.8 L Hct 20.2 L MCH RDW 20.2 H Plt Count 746 H Lymph % (Auto) [place] % (Auto) [place] # Baso # Seg Neutrophils % Seg Neuts % (Manual) 85.0 H Lymphocytes % (Manual) 8.0 L Monocytes % (Manual) Seg Neutrophils # Seg Neutrophils # Man 25.0 H Lymphocytes # (Manual) Monocytes # (Manual) 1.5 H Eosinophils # (Manual) 0.6 H Basophils # (Manual) PT INR APTT ABG pH ABG pO2 ABG HCO3 ABG O2 Saturation ABG Base Excess ABG Hemoglobin Oxyhemoglobin Sodium Potassium Chloride Carbon Dioxide 17 L BUN 57 H Creatinine 1.4 H D Glucose POC Glucose 124 H Lactic Acid Calcium Ionized Calcium Phosphorus Magnesium Total Bilirubin AST ALT Alkaline Phosphatase Ammonia Total Creatine Kinase CK-MB (CK-2) CK-MB (CK-2) Rel Index Total Protein Albumin Urine WBC (Auto) Vancomycin Trough Salicylates Acetaminophen Plasma/Serum Alcohol Crossmatch 12/21/19 12/21/19 12/21/19 08:56 12:06 14:53 WBC RBC Hgb 7.2 L Hct 22.9 L MCH RDW Plt Count Lymph % (Auto) [place] % (Auto) [place] # Baso # Seg Neutrophils % Seg Neuts % (Manual) Lymphocytes % (Manual) Monocytes % (Manual) Seg Neutrophils # Seg Neutrophils # Man Lymphocytes # (Manual) Monocytes # (Manual) Eosinophils # (Manual) Basophils # (Manual) PT INR APTT ABG pH ABG pO2 ABG HCO3 ABG O2 Saturation ABG Base Excess ABG Hemoglobin Oxyhemoglobin Sodium Potassium Chloride Carbon Dioxide BUN Creatinine Glucose POC Glucose 116 H Lactic Acid Calcium Ionized Calcium Phosphorus Magnesium Total Bilirubin AST ALT Alkaline Phosphatase Ammonia Total Creatine Kinase CK-MB (CK-2) CK-MB (CK-2) Rel Index Total Protein Albumin Urine WBC (Auto) Vancomycin Trough 33.8 H Salicylates Acetaminophen Plasma/Serum Alcohol Crossmatch 12/21/19 12/21/19 12/21/19 14:54 17:27 23:49 WBC RBC Hgb Hct MCH RDW Plt Count Lymph % (Auto) [place] % (Auto) [place] # Baso # Seg Neutrophils % Seg Neuts % (Manual) Lymphocytes % (Manual) Monocytes % (Manual) Seg Neutrophils # Seg Neutrophils # Man Lymphocytes # (Manual) Monocytes # (Manual) Eosinophils # (Manual) Basophils # (Manual) PT INR APTT ABG pH ABG pO2 ABG HCO3 ABG O2 Saturation ABG Base Excess ABG Hemoglobin Oxyhemoglobin Sodium Potassium Chloride Carbon Dioxide BUN Creatinine Glucose POC Glucose 145 H 127 H Lactic Acid Calcium Ionized Calcium Phosphorus Magnesium Total Bilirubin AST ALT Alkaline Phosphatase Ammonia Total Creatine Kinase CK-MB (CK-2) CK-MB (CK-2) Rel Index Total Protein Albumin Urine WBC (Auto) Vancomycin Trough Salicylates Acetaminophen Plasma/Serum Alcohol Crossmatch See Detail 12/22/19 12/22/19 12/22/19 04:43 05:56 08:40 WBC RBC Hgb Hct MCH RDW Plt Count Lymph % (Auto) [place] % (Auto) [place] # Baso # Seg Neutrophils % Seg Neuts % (Manual) Lymphocytes % (Manual) Monocytes % (Manual) Seg Neutrophils # Seg Neutrophils # Man Lymphocytes # (Manual) Monocytes # (Manual) Eosinophils # (Manual) Basophils # (Manual) PT INR APTT ABG pH ABG pO2 75.6 L ABG HCO3 ABG O2 Saturation ABG Base Excess -2.6 L ABG Hemoglobin 6.8 L Oxyhemoglobin 94.6 L Sodium Potassium Chloride Carbon Dioxide 17 L BUN 60 H Creatinine 1.4 H Glucose 126 H POC Glucose 153 H Lactic Acid Calcium Ionized Calcium Phosphorus Magnesium Total Bilirubin AST ALT Alkaline Phosphatase Ammonia Total Creatine Kinase CK-MB (CK-2) CK-MB (CK-2) Rel Index Total Protein Albumin Urine WBC (Auto) Vancomycin Trough Salicylates Acetaminophen Plasma/Serum Alcohol Crossmatch 12/22/19 12/22/19 12/23/19 12:07 17:49 04:30 WBC 22.4 H RBC 2.68 L Hgb 7.6 L Hct 22.9 L MCH RDW 19.9 H Plt Count 998 H Lymph % (Auto) [place] % (Auto) [place] # Baso # Seg Neutrophils % Seg Neuts % (Manual) 88.0 H Lymphocytes % (Manual) 2.0 L Monocytes % (Manual) 9.0 H Seg Neutrophils # Seg Neutrophils # Man 19.7 H Lymphocytes # (Manual) 0.4 L Monocytes # (Manual) 2.0 H Eosinophils # (Manual) Basophils # (Manual) PT INR APTT ABG pH ABG pO2 ABG HCO3 ABG O2 Saturation ABG Base Excess ABG Hemoglobin Oxyhemoglobin Sodium Potassium Chloride Carbon Dioxide BUN Creatinine Glucose POC Glucose 140 H 116 H Lactic Acid Calcium Ionized Calcium Phosphorus Magnesium Total Bilirubin AST ALT Alkaline Phosphatase Ammonia Total Creatine Kinase CK-MB (CK-2) CK-MB (CK-2) Rel Index Total Protein Albumin Urine WBC (Auto) Vancomycin Trough Salicylates Acetaminophen Plasma/Serum Alcohol Crossmatch 12/23/19 12/23/19 12/23/19 04:30 12:00 18:06 WBC RBC Hgb Hct MCH RDW Plt Count Lymph % (Auto) [place] % (Auto) [place] # Baso # Seg Neutrophils % Seg Neuts % (Manual) Lymphocytes % (Manual) Monocytes % (Manual) Seg Neutrophils # Seg Neutrophils # Man Lymphocytes # (Manual) Monocytes # (Manual) Eosinophils # (Manual) Basophils # (Manual) PT INR APTT ABG pH ABG pO2 ABG HCO3 ABG O2 Saturation ABG Base Excess ABG Hemoglobin Oxyhemoglobin Sodium Potassium 5.2 H Chloride Carbon Dioxide 21 L BUN 69 H Creatinine 1.5 H Glucose 117 H POC Glucose 128 H 138 H Lactic Acid Calcium Ionized Calcium Phosphorus Magnesium Total Bilirubin AST ALT Alkaline Phosphatase Ammonia Total Creatine Kinase CK-MB (CK-2) CK-MB (CK-2) Rel Index Total Protein Albumin Urine WBC (Auto) Vancomycin Trough Salicylates Acetaminophen Plasma/Serum Alcohol Crossmatch 12/23/19 12/24/19 12/24/19 23:46 04:31 05:08 WBC RBC Hgb Hct MCH RDW Plt Count Lymph % (Auto) [place] % (Auto) [place] # Baso # Seg Neutrophils % Seg Neuts % (Manual) Lymphocytes % (Manual) Monocytes % (Manual) Seg Neutrophils # Seg Neutrophils # Man Lymphocytes # (Manual) Monocytes # (Manual) Eosinophils # (Manual) Basophils # (Manual) PT INR APTT ABG pH ABG pO2 ABG HCO3 ABG O2 Saturation ABG Base Excess ABG Hemoglobin Oxyhemoglobin Sodium Potassium 5.3 H Chloride 107.6 H Carbon Dioxide 20 L BUN 72 H Creatinine 1.6 H Glucose 120 H POC Glucose 120 H 140 H Lactic Acid Calcium Ionized Calcium Phosphorus Magnesium Total Bilirubin AST ALT Alkaline Phosphatase Ammonia Total Creatine Kinase CK-MB (CK-2) CK-MB (CK-2) Rel Index Total Protein Albumin Urine WBC (Auto) Vancomycin Trough Salicylates Acetaminophen Plasma/Serum Alcohol Crossmatch 12/24/19 12/24/19 12/25/19 11:58 17:49 03:47 WBC 36.2 H RBC 2.92 L Hgb 8.4 L Hct 26.1 L MCH RDW 20.2 H Plt Count 942 H Lymph % (Auto) [place] % (Auto) [place] # Baso # Seg Neutrophils % Seg Neuts % (Manual) 97.5 H Lymphocytes % (Manual) 1.0 L Monocytes % (Manual) Seg Neutrophils # Seg Neutrophils # Man 35.3 H Lymphocytes # (Manual) 0.4 L Monocytes # (Manual) Eosinophils # (Manual) Basophils # (Manual) PT INR APTT ABG pH ABG pO2 ABG HCO3 ABG O2 Saturation ABG Base Excess ABG Hemoglobin Oxyhemoglobin Sodium Potassium Chloride Carbon Dioxide BUN Creatinine Glucose POC Glucose 146 H 131 H Lactic Acid Calcium Ionized Calcium Phosphorus Magnesium Total Bilirubin AST ALT Alkaline Phosphatase Ammonia Total Creatine Kinase CK-MB (CK-2) CK-MB (CK-2) Rel Index Total Protein Albumin Urine WBC (Auto) Vancomycin Trough Salicylates Acetaminophen Plasma/Serum Alcohol Crossmatch 12/25/19 12/25/19 12/25/19 03:47 05:30 12:23 WBC RBC Hgb Hct MCH RDW Plt Count Lymph % (Auto) [place] % (Auto) [place] # Baso # Seg Neutrophils % Seg Neuts % (Manual) Lymphocytes % (Manual) Monocytes % (Manual) Seg Neutrophils # Seg Neutrophils # Man Lymphocytes # (Manual) Monocytes # (Manual) Eosinophils # (Manual) Basophils # (Manual) PT INR APTT ABG pH ABG pO2 ABG HCO3 ABG O2 Saturation ABG Base Excess ABG Hemoglobin Oxyhemoglobin Sodium Potassium Chloride Carbon Dioxide 15 L BUN 70 H Creatinine 1.7 H Glucose 153 H POC Glucose 169 H 135 H Lactic Acid Calcium Ionized Calcium Phosphorus Magnesium Total Bilirubin AST ALT Alkaline Phosphatase Ammonia Total Creatine Kinase CK-MB (CK-2) CK-MB (CK-2) Rel Index Total Protein Albumin Urine WBC (Auto) Vancomycin Trough Salicylates Acetaminophen Plasma/Serum Alcohol Crossmatch 12/25/19 12/25/19 12/26/19 17:37 23:29 09:47 WBC 22.1 H RBC 2.83 L Hgb 7.9 L Hct 25.5 L MCH RDW 20.0 H Plt Count 894 H Lymph % (Auto) [place] % (Auto) [place] # Baso # Seg Neutrophils % Seg Neuts % (Manual) Lymphocytes % (Manual) Monocytes % (Manual) Seg Neutrophils # Seg Neutrophils # Man Lymphocytes # (Manual) Monocytes # (Manual) Eosinophils # (Manual) Basophils # (Manual) PT INR APTT ABG pH ABG pO2 ABG HCO3 ABG O2 Saturation ABG Base Excess ABG Hemoglobin Oxyhemoglobin Sodium Potassium Chloride Carbon Dioxide BUN Creatinine Glucose POC Glucose 120 H 140 H Lactic Acid Calcium Ionized Calcium Phosphorus Magnesium Total Bilirubin AST ALT Alkaline Phosphatase Ammonia Total Creatine Kinase CK-MB (CK-2) CK-MB (CK-2) Rel Index Total Protein Albumin Urine WBC (Auto) Vancomycin Trough Salicylates Acetaminophen Plasma/Serum Alcohol Crossmatch 12/26/19 12/26/19 12/26/19 09:47 11:46 17:52 WBC RBC Hgb Hct MCH RDW Plt Count Lymph % (Auto) [place] % (Auto) [place] # Baso # Seg Neutrophils % Seg Neuts % (Manual) Lymphocytes % (Manual) Monocytes % (Manual) Seg Neutrophils # Seg Neutrophils # Man Lymphocytes # (Manual) Monocytes # (Manual) Eosinophils # (Manual) Basophils # (Manual) PT INR APTT ABG pH ABG pO2 ABG HCO3 ABG O2 Saturation ABG Base Excess ABG Hemoglobin Oxyhemoglobin Sodium Potassium Chloride Carbon Dioxide 18 L BUN 65 H Creatinine 1.4 H Glucose 132 H POC Glucose 110 H 145 H Lactic Acid Calcium Ionized Calcium Phosphorus Magnesium Total Bilirubin AST ALT Alkaline Phosphatase Ammonia Total Creatine Kinase CK-MB (CK-2) CK-MB (CK-2) Rel Index Total Protein Albumin Urine WBC (Auto) Vancomycin Trough Salicylates Acetaminophen Plasma/Serum Alcohol Crossmatch 12/27/19 12/27/19 12/27/19 00:01 03:42 03:42 WBC 18.0 H RBC 2.86 L Hgb 8.0 L Hct 25.2 L MCH RDW 19.2 H Plt Count 873 H Lymph % (Auto) 8.4 L [place] % (Auto) 7.5 H [place] # 1.4 H Baso # 0.2 H Seg Neutrophils % 82.2 H Seg Neuts % (Manual) Lymphocytes % (Manual) Monocytes % (Manual) Seg Neutrophils # 14.8 H Seg Neutrophils # Man Lymphocytes # (Manual) Monocytes # (Manual) Eosinophils # (Manual) Basophils # (Manual) PT INR APTT ABG pH ABG pO2 ABG HCO3 ABG O2 Saturation ABG Base Excess ABG Hemoglobin Oxyhemoglobin Sodium Potassium Chloride Carbon Dioxide BUN 73 H Creatinine 1.4 H Glucose 119 H POC Glucose 124 H Lactic Acid Calcium Ionized Calcium Phosphorus Magnesium Total Bilirubin AST ALT Alkaline Phosphatase Ammonia Total Creatine Kinase CK-MB (CK-2) CK-MB (CK-2) Rel Index Total Protein Albumin Urine WBC (Auto) Vancomycin Trough Salicylates Acetaminophen Plasma/Serum Alcohol Crossmatch 12/27/19 12/27/19 12/27/19 05:45 11:45 17:29 WBC RBC Hgb Hct MCH RDW Plt Count Lymph % (Auto) [place] % (Auto) [place] # Baso # Seg Neutrophils % Seg Neuts % (Manual) Lymphocytes % (Manual) Monocytes % (Manual) Seg Neutrophils # Seg Neutrophils # Man Lymphocytes # (Manual) Monocytes # (Manual) Eosinophils # (Manual) Basophils # (Manual) PT INR APTT ABG pH ABG pO2 ABG HCO3 ABG O2 Saturation ABG Base Excess ABG Hemoglobin Oxyhemoglobin Sodium Potassium Chloride Carbon Dioxide BUN Creatinine Glucose POC Glucose 131 H 123 H 134 H Lactic Acid Calcium Ionized Calcium Phosphorus Magnesium Total Bilirubin AST ALT Alkaline Phosphatase Ammonia Total Creatine Kinase CK-MB (CK-2) CK-MB (CK-2) Rel Index Total Protein Albumin Urine WBC (Auto) Vancomycin Trough Salicylates Acetaminophen Plasma/Serum Alcohol Crossmatch 12/28/19 12/28/19 12/28/19 00:12 05:14 11:53 WBC RBC Hgb Hct MCH RDW Plt Count Lymph % (Auto) [place] % (Auto) [place] # Baso # Seg Neutrophils % Seg Neuts % (Manual) Lymphocytes % (Manual) Monocytes % (Manual) Seg Neutrophils # Seg Neutrophils # Man Lymphocytes # (Manual) Monocytes # (Manual) Eosinophils # (Manual) Basophils # (Manual) PT INR APTT ABG pH ABG pO2 ABG HCO3 ABG O2 Saturation ABG Base Excess ABG Hemoglobin Oxyhemoglobin Sodium Potassium Chloride Carbon Dioxide BUN Creatinine Glucose POC Glucose 138 H 130 H 146 H Lactic Acid Calcium Ionized Calcium Phosphorus Magnesium Total Bilirubin AST ALT Alkaline Phosphatase Ammonia Total Creatine Kinase CK-MB (CK-2) CK-MB (CK-2) Rel Index Total Protein Albumin Urine WBC (Auto) Vancomycin Trough Salicylates Acetaminophen Plasma/Serum Alcohol Crossmatch 12/28/19 12/29/19 12/29/19 17:39 00:01 18:11 WBC RBC Hgb Hct MCH RDW Plt Count Lymph % (Auto) [place] % (Auto) [place] # Baso # Seg Neutrophils % Seg Neuts % (Manual) Lymphocytes % (Manual) Monocytes % (Manual) Seg Neutrophils # Seg Neutrophils # Man Lymphocytes # (Manual) Monocytes # (Manual) Eosinophils # (Manual) Basophils # (Manual) PT INR APTT ABG pH ABG pO2 ABG HCO3 ABG O2 Saturation ABG Base Excess ABG Hemoglobin Oxyhemoglobin Sodium Potassium Chloride Carbon Dioxide BUN Creatinine Glucose POC Glucose 117 H 139 H 130 H Lactic Acid Calcium Ionized Calcium Phosphorus Magnesium Total Bilirubin AST ALT Alkaline Phosphatase Ammonia Total Creatine Kinase CK-MB (CK-2) CK-MB (CK-2) Rel Index Total Protein Albumin Urine WBC (Auto) Vancomycin Trough Salicylates Acetaminophen Plasma/Serum Alcohol Crossmatch 12/29/19 12/30/19 12/30/19 23:09 00:02 01:06 WBC 16.7 H RBC 2.91 L Hgb 8.2 L Hct 25.4 L MCH RDW 18.7 H Plt Count 708 H Lymph % (Auto) 9.4 L [place] % (Auto) [place] # 0.9 H Baso # Seg Neutrophils % 83.5 H Seg Neuts % (Manual) Lymphocytes % (Manual) Monocytes % (Manual) Seg Neutrophils # 14.0 H Seg Neutrophils # Man Lymphocytes # (Manual) Monocytes # (Manual) Eosinophils # (Manual) Basophils # (Manual) PT INR APTT ABG pH ABG pO2 ABG HCO3 ABG O2 Saturation ABG Base Excess ABG Hemoglobin Oxyhemoglobin Sodium Potassium Chloride Carbon Dioxide BUN Creatinine Glucose POC Glucose 120 H 114 H Lactic Acid Calcium Ionized Calcium Phosphorus Magnesium Total Bilirubin AST ALT Alkaline Phosphatase Ammonia Total Creatine Kinase CK-MB (CK-2) CK-MB (CK-2) Rel Index Total Protein Albumin Urine WBC (Auto) Vancomycin Trough Salicylates Acetaminophen Plasma/Serum Alcohol Crossmatch 12/30/19 12/30/19 12/30/19 01:06 04:23 05:18 WBC RBC Hgb Hct MCH RDW Plt Count Lymph % (Auto) [place] % (Auto) [place] # Baso # Seg Neutrophils % Seg Neuts % (Manual) Lymphocytes % (Manual) Monocytes % (Manual) Seg Neutrophils # Seg Neutrophils # Man Lymphocytes # (Manual) Monocytes # (Manual) Eosinophils # (Manual) Basophils # (Manual) PT INR APTT ABG pH ABG pO2 ABG HCO3 ABG O2 Saturation ABG Base Excess ABG Hemoglobin 8.3 L Oxyhemoglobin Sodium Potassium Chloride Carbon Dioxide BUN 70 H Creatinine Glucose 122 H POC Glucose 130 H Lactic Acid Calcium Ionized Calcium Phosphorus Magnesium Total Bilirubin AST ALT Alkaline Phosphatase Ammonia Total Creatine Kinase CK-MB (CK-2) CK-MB (CK-2) Rel Index Total Protein Albumin Urine WBC (Auto) Vancomycin Trough Salicylates Acetaminophen Plasma/Serum Alcohol Crossmatch 12/30/19 12/30/19 12/30/19 05:40 12:17 17:43 WBC RBC Hgb Hct MCH RDW Plt Count Lymph % (Auto) [place] % (Auto) [place] # Baso # Seg Neutrophils % Seg Neuts % (Manual) Lymphocytes % (Manual) Monocytes % (Manual) Seg Neutrophils # Seg Neutrophils # Man Lymphocytes # (Manual) Monocytes # (Manual) Eosinophils # (Manual) Basophils # (Manual) PT INR APTT ABG pH ABG pO2 ABG HCO3 ABG O2 Saturation ABG Base Excess ABG Hemoglobin Oxyhemoglobin Sodium Potassium Chloride Carbon Dioxide BUN Creatinine Glucose POC Glucose 135 H 132 H 118 H Lactic Acid Calcium Ionized Calcium Phosphorus Magnesium Total Bilirubin AST ALT Alkaline Phosphatase Ammonia Total Creatine Kinase CK-MB (CK-2) CK-MB (CK-2) Rel Index Total Protein Albumin Urine WBC (Auto) Vancomycin Trough Salicylates Acetaminophen Plasma/Serum Alcohol Crossmatch 12/30/19 12/31/19 12/31/19 23:29 05:19 17:50 WBC RBC Hgb Hct MCH RDW Plt Count Lymph % (Auto) [place] % (Auto) [place] # Baso # Seg Neutrophils % Seg Neuts % (Manual) Lymphocytes % (Manual) Monocytes % (Manual) Seg Neutrophils # Seg Neutrophils # Man Lymphocytes # (Manual) Monocytes # (Manual) Eosinophils # (Manual) Basophils # (Manual) PT INR APTT ABG pH ABG pO2 ABG HCO3 ABG O2 Saturation ABG Base Excess ABG Hemoglobin Oxyhemoglobin Sodium Potassium Chloride Carbon Dioxide BUN Creatinine Glucose POC Glucose 114 H 109 H 116 H Lactic Acid Calcium Ionized Calcium Phosphorus Magnesium Total Bilirubin AST ALT Alkaline Phosphatase Ammonia Total Creatine Kinase CK-MB (CK-2) CK-MB (CK-2) Rel Index Total Protein Albumin Urine WBC (Auto) Vancomycin Trough Salicylates Acetaminophen Plasma/Serum Alcohol Crossmatch 01/01/20 01/01/20 01/01/20 00:10 05:19 12:02 WBC RBC Hgb Hct MCH RDW Plt Count Lymph % (Auto) [place] % (Auto) [place] # Baso # Seg Neutrophils % Seg Neuts % (Manual) Lymphocytes % (Manual) Monocytes % (Manual) Seg Neutrophils # Seg Neutrophils # Man Lymphocytes # (Manual) Monocytes # (Manual) Eosinophils # (Manual) Basophils # (Manual) PT INR APTT ABG pH ABG pO2 ABG HCO3 ABG O2 Saturation ABG Base Excess ABG Hemoglobin Oxyhemoglobin Sodium Potassium Chloride Carbon Dioxide BUN Creatinine Glucose POC Glucose 131 H 122 H 136 H Lactic Acid Calcium Ionized Calcium Phosphorus Magnesium Total Bilirubin AST ALT Alkaline Phosphatase Ammonia Total Creatine Kinase CK-MB (CK-2) CK-MB (CK-2) Rel Index Total Protein Albumin Urine WBC (Auto) Vancomycin Trough Salicylates Acetaminophen Plasma/Serum Alcohol Crossmatch 01/02/20 01/02/20 01/02/20 00:24 05:36 11:41 WBC RBC Hgb Hct MCH RDW Plt Count Lymph % (Auto) [place] % (Auto) [place] # Baso # Seg Neutrophils % Seg Neuts % (Manual) Lymphocytes % (Manual) Monocytes % (Manual) Seg Neutrophils # Seg Neutrophils # Man Lymphocytes # (Manual) Monocytes # (Manual) Eosinophils # (Manual) Basophils # (Manual) PT INR APTT ABG pH ABG pO2 ABG HCO3 ABG O2 Saturation ABG Base Excess ABG Hemoglobin Oxyhemoglobin Sodium Potassium Chloride Carbon Dioxide BUN Creatinine Glucose POC Glucose 119 H 109 H 125 H Lactic Acid Calcium Ionized Calcium Phosphorus Magnesium Total Bilirubin AST ALT Alkaline Phosphatase Ammonia Total Creatine Kinase CK-MB (CK-2) CK-MB (CK-2) Rel Index Total Protein Albumin Urine WBC (Auto) Vancomycin Trough Salicylates Acetaminophen Plasma/Serum Alcohol Crossmatch 01/02/20 01/03/20 01/03/20 17:49 05:29 12:13 WBC RBC Hgb Hct MCH RDW Plt Count Lymph % (Auto) [place] % (Auto) [place] # Baso # Seg Neutrophils % Seg Neuts % (Manual) Lymphocytes % (Manual) Monocytes % (Manual) Seg Neutrophils # Seg Neutrophils # Man Lymphocytes # (Manual) Monocytes # (Manual) Eosinophils # (Manual) Basophils # (Manual) PT INR APTT ABG pH ABG pO2 ABG HCO3 ABG O2 Saturation ABG Base Excess ABG Hemoglobin Oxyhemoglobin Sodium Potassium Chloride Carbon Dioxide BUN Creatinine Glucose POC Glucose 130 H 132 H 113 H Lactic Acid Calcium Ionized Calcium Phosphorus Magnesium Total Bilirubin AST ALT Alkaline Phosphatase Ammonia Total Creatine Kinase CK-MB (CK-2) CK-MB (CK-2) Rel Index Total Protein Albumin Urine WBC (Auto) Vancomycin Trough Salicylates Acetaminophen Plasma/Serum Alcohol Crossmatch 01/03/20 01/04/20 01/04/20 17:32 00:19 05:26 WBC RBC Hgb Hct MCH RDW Plt Count Lymph % (Auto) [place] % (Auto) [place] # Baso # Seg Neutrophils % Seg Neuts % (Manual) Lymphocytes % (Manual) Monocytes % (Manual) Seg Neutrophils # Seg Neutrophils # Man Lymphocytes # (Manual) Monocytes # (Manual) Eosinophils # (Manual) Basophils # (Manual) PT INR APTT ABG pH ABG pO2 ABG HCO3 ABG O2 Saturation ABG Base Excess ABG Hemoglobin Oxyhemoglobin Sodium Potassium Chloride Carbon Dioxide BUN Creatinine Glucose POC Glucose 127 H 141 H 129 H Lactic Acid Calcium Ionized Calcium Phosphorus Magnesium Total Bilirubin AST ALT Alkaline Phosphatase Ammonia Total Creatine Kinase CK-MB (CK-2) CK-MB (CK-2) Rel Index Total Protein Albumin Urine WBC (Auto) Vancomycin Trough Salicylates Acetaminophen Plasma/Serum Alcohol Crossmatch 01/04/20 01/04/20 01/05/20 11:39 17:29 05:22 WBC RBC Hgb Hct MCH RDW Plt Count Lymph % (Auto) [place] % (Auto) [place] # Baso # Seg Neutrophils % Seg Neuts % (Manual) Lymphocytes % (Manual) Monocytes % (Manual) Seg Neutrophils # Seg Neutrophils # Man Lymphocytes # (Manual) Monocytes # (Manual) Eosinophils # (Manual) Basophils # (Manual) PT INR APTT ABG pH ABG pO2 ABG HCO3 ABG O2 Saturation ABG Base Excess ABG Hemoglobin Oxyhemoglobin Sodium Potassium Chloride Carbon Dioxide BUN Creatinine Glucose POC Glucose 167 H 132 H 121 H Lactic Acid Calcium Ionized Calcium Phosphorus Magnesium Total Bilirubin AST ALT Alkaline Phosphatase Ammonia Total Creatine Kinase CK-MB (CK-2) CK-MB (CK-2) Rel Index Total Protein Albumin Urine WBC (Auto) Vancomycin Trough Salicylates Acetaminophen Plasma/Serum Alcohol Crossmatch 01/05/20 01/05/20 01/05/20 12:25 17:40 18:06 WBC RBC Hgb Hct MCH RDW Plt Count Lymph % (Auto) [place] % (Auto) [place] # Baso # Seg Neutrophils % Seg Neuts % (Manual) Lymphocytes % (Manual) Monocytes % (Manual) Seg Neutrophils # Seg Neutrophils # Man Lymphocytes # (Manual) Monocytes # (Manual) Eosinophils # (Manual) Basophils # (Manual) PT INR APTT ABG pH 7.472 H ABG pO2 99.2 H ABG HCO3 ABG O2 Saturation ABG Base Excess ABG Hemoglobin 7.8 L Oxyhemoglobin Sodium Potassium Chloride Carbon Dioxide BUN Creatinine Glucose POC Glucose 106 H 110 H Lactic Acid Calcium Ionized Calcium Phosphorus Magnesium Total Bilirubin AST ALT Alkaline Phosphatase Ammonia Total Creatine Kinase CK-MB (CK-2) CK-MB (CK-2) Rel Index Total Protein Albumin Urine WBC (Auto) Vancomycin Trough Salicylates Acetaminophen Plasma/Serum Alcohol Crossmatch 01/06/20 01/06/20 01/06/20 00:11 05:16 11:30 WBC RBC Hgb Hct MCH RDW Plt Count Lymph % (Auto) [place] % (Auto) [place] # Baso # Seg Neutrophils % Seg Neuts % (Manual) Lymphocytes % (Manual) Monocytes % (Manual) Seg Neutrophils # Seg Neutrophils # Man Lymphocytes # (Manual) Monocytes # (Manual) Eosinophils # (Manual) Basophils # (Manual) PT INR APTT ABG pH ABG pO2 ABG HCO3 ABG O2 Saturation ABG Base Excess ABG Hemoglobin Oxyhemoglobin Sodium Potassium Chloride Carbon Dioxide BUN Creatinine Glucose POC Glucose 108 H 124 H 125 H Lactic Acid Calcium Ionized Calcium Phosphorus Magnesium Total Bilirubin AST ALT Alkaline Phosphatase Ammonia Total Creatine Kinase CK-MB (CK-2) CK-MB (CK-2) Rel Index Total Protein Albumin Urine WBC (Auto) Vancomycin Trough Salicylates Acetaminophen Plasma/Serum Alcohol Crossmatch 01/06/20 01/06/20 01/07/20 17:53 23:51 04:12 WBC 16.5 H RBC 3.29 L Hgb 9.3 L Hct 28.1 L MCH RDW 18.2 H Plt Count 526 H Lymph % (Auto) 8.4 L [place] % (Auto) [place] # 1.0 H Baso # Seg Neutrophils % 84.4 H Seg Neuts % (Manual) Lymphocytes % (Manual) Monocytes % (Manual) Seg Neutrophils # 13.9 H Seg Neutrophils # Man Lymphocytes # (Manual) Monocytes # (Manual) Eosinophils # (Manual) Basophils # (Manual) PT INR APTT ABG pH ABG pO2 ABG HCO3 ABG O2 Saturation ABG Base Excess ABG Hemoglobin Oxyhemoglobin Sodium Potassium Chloride Carbon Dioxide BUN Creatinine Glucose POC Glucose 166 H 128 H Lactic Acid Calcium Ionized Calcium Phosphorus Magnesium Total Bilirubin AST ALT Alkaline Phosphatase Ammonia Total Creatine Kinase CK-MB (CK-2) CK-MB (CK-2) Rel Index Total Protein Albumin Urine WBC (Auto) Vancomycin Trough Salicylates Acetaminophen Plasma/Serum Alcohol Crossmatch 01/07/20 01/07/20 01/07/20 04:12 04:45 11:51 WBC RBC Hgb Hct MCH RDW Plt Count Lymph % (Auto) [place] % (Auto) [place] # Baso # Seg Neutrophils % Seg Neuts % (Manual) Lymphocytes % (Manual) Monocytes % (Manual) Seg Neutrophils # Seg Neutrophils # Man Lymphocytes # (Manual) Monocytes # (Manual) Eosinophils # (Manual) Basophils # (Manual) PT INR APTT ABG pH ABG pO2 ABG HCO3 ABG O2 Saturation ABG Base Excess ABG Hemoglobin Oxyhemoglobin Sodium 136 L Potassium Chloride Carbon Dioxide 21 L BUN 44 H Creatinine 0.6 L Glucose 124 H POC Glucose 134 H 138 H Lactic Acid Calcium Ionized Calcium Phosphorus Magnesium Total Bilirubin AST ALT Alkaline Phosphatase Ammonia Total Creatine Kinase CK-MB (CK-2) CK-MB (CK-2) Rel Index Total Protein Albumin Urine WBC (Auto) Vancomycin Trough Salicylates Acetaminophen Plasma/Serum Alcohol Crossmatch 01/07/20 01/08/20 01/08/20 17:36 00:33 05:29 WBC RBC Hgb Hct MCH RDW Plt Count Lymph % (Auto) [place] % (Auto) [place] # Baso # Seg Neutrophils % Seg Neuts % (Manual) Lymphocytes % (Manual) Monocytes % (Manual) Seg Neutrophils # Seg Neutrophils # Man Lymphocytes # (Manual) Monocytes # (Manual) Eosinophils # (Manual) Basophils # (Manual) PT INR APTT ABG pH ABG pO2 ABG HCO3 ABG O2 Saturation ABG Base Excess ABG Hemoglobin Oxyhemoglobin Sodium Potassium Chloride Carbon Dioxide BUN Creatinine Glucose POC Glucose 128 H 119 H 124 H Lactic Acid Calcium Ionized Calcium Phosphorus Magnesium Total Bilirubin AST ALT Alkaline Phosphatase Ammonia Total Creatine Kinase CK-MB (CK-2) CK-MB (CK-2) Rel Index Total Protein Albumin Urine WBC (Auto) Vancomycin Trough Salicylates Acetaminophen Plasma/Serum Alcohol Crossmatch 01/08/20 01/08/20 01/08/20 12:51 20:25 23:22 WBC RBC Hgb Hct MCH RDW Plt Count Lymph % (Auto) [place] % (Auto) [place] # Baso # Seg Neutrophils % Seg Neuts % (Manual) Lymphocytes % (Manual) Monocytes % (Manual) Seg Neutrophils # Seg Neutrophils # Man Lymphocytes # (Manual) Monocytes # (Manual) Eosinophils # (Manual) Basophils # (Manual) PT INR APTT ABG pH ABG pO2 132.2 H ABG HCO3 ABG O2 Saturation ABG Base Excess ABG Hemoglobin Oxyhemoglobin Sodium Potassium Chloride Carbon Dioxide BUN Creatinine Glucose POC Glucose 128 H 127 H Lactic Acid Calcium Ionized Calcium Phosphorus Magnesium Total Bilirubin AST ALT Alkaline Phosphatase Ammonia Total Creatine Kinase CK-MB (CK-2) CK-MB (CK-2) Rel Index Total Protein Albumin Urine WBC (Auto) Vancomycin Trough Salicylates Acetaminophen Plasma/Serum Alcohol Crossmatch 01/09/20 01/09/20 01/09/20 05:48 08:51 11:29 WBC RBC Hgb Hct MCH RDW Plt Count Lymph % (Auto) [place] % (Auto) [place] # Baso # Seg Neutrophils % Seg Neuts % (Manual) Lymphocytes % (Manual) Monocytes % (Manual) Seg Neutrophils # Seg Neutrophils # Man Lymphocytes # (Manual) Monocytes # (Manual) Eosinophils # (Manual) Basophils # (Manual) PT INR APTT ABG pH ABG pO2 94.3 H ABG HCO3 ABG O2 Saturation ABG Base Excess ABG Hemoglobin 9.5 L Oxyhemoglobin Sodium Potassium Chloride Carbon Dioxide BUN Creatinine Glucose POC Glucose 120 H 112 H Lactic Acid Calcium Ionized Calcium Phosphorus Magnesium Total Bilirubin AST ALT Alkaline Phosphatase Ammonia Total Creatine Kinase CK-MB (CK-2) CK-MB (CK-2) Rel Index Total Protein Albumin Urine WBC (Auto) Vancomycin Trough Salicylates Acetaminophen Plasma/Serum Alcohol Crossmatch 01/09/20 01/10/20 01/10/20 17:57 05:17 12:28 WBC RBC Hgb Hct MCH RDW Plt Count Lymph % (Auto) [place] % (Auto) [place] # Baso # Seg Neutrophils % Seg Neuts % (Manual) Lymphocytes % (Manual) Monocytes % (Manual) Seg Neutrophils # Seg Neutrophils # Man Lymphocytes # (Manual) Monocytes # (Manual) Eosinophils # (Manual) Basophils # (Manual) PT INR APTT ABG pH ABG pO2 ABG HCO3 ABG O2 Saturation ABG Base Excess ABG Hemoglobin Oxyhemoglobin Sodium Potassium Chloride Carbon Dioxide BUN Creatinine Glucose POC Glucose 122 H 115 H 116 H Lactic Acid Calcium Ionized Calcium Phosphorus Magnesium Total Bilirubin AST ALT Alkaline Phosphatase Ammonia Total Creatine Kinase CK-MB (CK-2) CK-MB (CK-2) Rel Index Total Protein Albumin Urine WBC (Auto) Vancomycin Trough Salicylates Acetaminophen Plasma/Serum Alcohol Crossmatch 0401/10/20 01/11/20 18:25 23:47 06:05 WBC RBC Hgb Hct MCH RDW Plt Count Lymph % (Auto) [place] % (Auto) [place] # Baso # Seg Neutrophils % Seg Neuts % (Manual) Lymphocytes % (Manual) Monocytes % (Manual) Seg Neutrophils # Seg Neutrophils # Man Lymphocytes # (Manual) Monocytes # (Manual) Eosinophils # (Manual) Basophils # (Manual) PT INR APTT ABG pH ABG pO2 ABG HCO3 ABG O2 Saturation ABG Base Excess ABG Hemoglobin Oxyhemoglobin Sodium Potassium Chloride Carbon Dioxide BUN Creatinine Glucose POC Glucose 123 H 115 H 151 H Lactic Acid Calcium Ionized Calcium Phosphorus Magnesium Total Bilirubin AST ALT Alkaline Phosphatase Ammonia Total Creatine Kinase CK-MB (CK-2) CK-MB (CK-2) Rel Index Total Protein Albumin Urine WBC (Auto) Vancomycin Trough Salicylates Acetaminophen Plasma/Serum Alcohol Crossmatch 01/11/20 01/11/20 01/11/20 07:00 07:00 12:27 WBC 11.8 H RBC 3.40 L Hgb 9.4 L Hct 29.3 L MCH RDW 18.1 H Plt Count 549 H Lymph % (Auto) [place] % (Auto) 9.1 H [place] # 1.1 H Baso # Seg Neutrophils % 73.3 H Seg Neuts % (Manual) Lymphocytes % (Manual) Monocytes % (Manual) Seg Neutrophils # 8.7 H Seg Neutrophils # Man Lymphocytes # (Manual) Monocytes # (Manual) Eosinophils # (Manual) Basophils # (Manual) PT INR APTT ABG pH ABG pO2 ABG HCO3 ABG O2 Saturation ABG Base Excess ABG Hemoglobin Oxyhemoglobin Sodium 134 L Potassium Chloride 97.7 L Carbon Dioxide 21 L BUN 38 H Creatinine 0.5 L Glucose 168 H POC Glucose 117 H Lactic Acid Calcium 10.5 H Ionized Calcium Phosphorus Magnesium Total Bilirubin AST ALT Alkaline Phosphatase Ammonia Total Creatine Kinase CK-MB (CK-2) CK-MB (CK-2) Rel Index Total Protein Albumin Urine WBC (Auto) Vancomycin Trough Salicylates Acetaminophen Plasma/Serum Alcohol Crossmatch 01/11/20 01/12/20 01/12/20 18:19 00:53 05:24 WBC RBC Hgb Hct MCH RDW Plt Count Lymph % (Auto) [place] % (Auto) [place] # Baso # Seg Neutrophils % Seg Neuts % (Manual) Lymphocytes % (Manual) Monocytes % (Manual) Seg Neutrophils # Seg Neutrophils # Man Lymphocytes # (Manual) Monocytes # (Manual) Eosinophils # (Manual) Basophils # (Manual) PT INR APTT ABG pH ABG pO2 ABG HCO3 ABG O2 Saturation ABG Base Excess ABG Hemoglobin Oxyhemoglobin Sodium Potassium Chloride Carbon Dioxide BUN Creatinine Glucose POC Glucose 126 H 126 H 128 H Lactic Acid Calcium Ionized Calcium Phosphorus Magnesium Total Bilirubin AST ALT Alkaline Phosphatase Ammonia Total Creatine Kinase CK-MB (CK-2) CK-MB (CK-2) Rel Index Total Protein Albumin Urine WBC (Auto) Vancomycin Trough Salicylates Acetaminophen Plasma/Serum Alcohol Crossmatch 01/12/20 01/12/20 01/13/20 13:39 18:02 00:27 WBC RBC Hgb Hct MCH RDW Plt Count Lymph % (Auto) [place] % (Auto) [place] # Baso # Seg Neutrophils % Seg Neuts % (Manual) Lymphocytes % (Manual) Monocytes % (Manual) Seg Neutrophils # Seg Neutrophils # Man Lymphocytes # (Manual) Monocytes # (Manual) Eosinophils # (Manual) Basophils # (Manual) PT INR APTT ABG pH ABG pO2 ABG HCO3 ABG O2 Saturation ABG Base Excess ABG Hemoglobin Oxyhemoglobin Sodium Potassium Chloride Carbon Dioxide BUN Creatinine Glucose POC Glucose 146 H 125 H 131 H Lactic Acid Calcium Ionized Calcium Phosphorus Magnesium Total Bilirubin AST ALT Alkaline Phosphatase Ammonia Total Creatine Kinase CK-MB (CK-2) CK-MB (CK-2) Rel Index Total Protein Albumin Urine WBC (Auto) Vancomycin Trough Salicylates Acetaminophen Plasma/Serum Alcohol Crossmatch 01/13/20 01/13/20 01/13/20 05:44 11:54 17:18 WBC RBC Hgb Hct MCH RDW Plt Count Lymph % (Auto) [place] % (Auto) [place] # Baso # Seg Neutrophils % Seg Neuts % (Manual) Lymphocytes % (Manual) Monocytes % (Manual) Seg Neutrophils # Seg Neutrophils # Man Lymphocytes # (Manual) Monocytes # (Manual) Eosinophils # (Manual) Basophils # (Manual) PT INR APTT ABG pH ABG pO2 ABG HCO3 ABG O2 Saturation ABG Base Excess ABG Hemoglobin Oxyhemoglobin Sodium Potassium Chloride Carbon Dioxide BUN Creatinine Glucose POC Glucose 148 H 140 H 130 H Lactic Acid Calcium Ionized Calcium Phosphorus Magnesium Total Bilirubin AST ALT Alkaline Phosphatase Ammonia Total Creatine Kinase CK-MB (CK-2) CK-MB (CK-2) Rel Index Total Protein Albumin Urine WBC (Auto) Vancomycin Trough Salicylates Acetaminophen Plasma/Serum Alcohol Crossmatch 01/14/20 01/14/20 01/14/20 00:16 05:45 12:19 WBC RBC Hgb Hct MCH RDW Plt Count Lymph % (Auto) [place] % (Auto) [place] # Baso # Seg Neutrophils % Seg Neuts % (Manual) Lymphocytes % (Manual) Monocytes % (Manual) Seg Neutrophils # Seg Neutrophils # Man Lymphocytes # (Manual) Monocytes # (Manual) Eosinophils # (Manual) Basophils # (Manual) PT INR APTT ABG pH ABG pO2 ABG HCO3 ABG O2 Saturation ABG Base Excess ABG Hemoglobin Oxyhemoglobin Sodium Potassium Chloride Carbon Dioxide BUN Creatinine Glucose POC Glucose 125 H 146 H 147 H Lactic Acid Calcium Ionized Calcium Phosphorus Magnesium Total Bilirubin AST ALT Alkaline Phosphatase Ammonia Total Creatine Kinase CK-MB (CK-2) CK-MB (CK-2) Rel Index Total Protein Albumin Urine WBC (Auto) Vancomycin Trough Salicylates Acetaminophen Plasma/Serum Alcohol Crossmatch 01/14/20 01/14/20 01/15/20 18:10 23:54 05:14 WBC RBC Hgb Hct MCH RDW Plt Count Lymph % (Auto) [place] % (Auto) [place] # Baso # Seg Neutrophils % Seg Neuts % (Manual) Lymphocytes % (Manual) Monocytes % (Manual) Seg Neutrophils # Seg Neutrophils # Man Lymphocytes # (Manual) Monocytes # (Manual) Eosinophils # (Manual) Basophils # (Manual) PT INR APTT ABG pH ABG pO2 ABG HCO3 ABG O2 Saturation ABG Base Excess ABG Hemoglobin Oxyhemoglobin Sodium Potassium Chloride Carbon Dioxide BUN Creatinine Glucose POC Glucose 136 H 109 H 111 H Lactic Acid Calcium Ionized Calcium Phosphorus Magnesium Total Bilirubin AST ALT Alkaline Phosphatase Ammonia Total Creatine Kinase CK-MB (CK-2) CK-MB (CK-2) Rel Index Total Protein Albumin Urine WBC (Auto) Vancomycin Trough Salicylates Acetaminophen Plasma/Serum Alcohol Crossmatch 01/15/20 01/15/20 01/16/20 12:34 23:25 05:06 WBC RBC Hgb Hct MCH RDW Plt Count Lymph % (Auto) [place] % (Auto) [place] # Baso # Seg Neutrophils % Seg Neuts % (Manual) Lymphocytes % (Manual) Monocytes % (Manual) Seg Neutrophils # Seg Neutrophils # Man Lymphocytes # (Manual) Monocytes # (Manual) Eosinophils # (Manual) Basophils # (Manual) PT INR APTT ABG pH ABG pO2 ABG HCO3 ABG O2 Saturation ABG Base Excess ABG Hemoglobin Oxyhemoglobin Sodium Potassium Chloride Carbon Dioxide BUN Creatinine Glucose POC Glucose 131 H 120 H 121 H Lactic Acid Calcium Ionized Calcium Phosphorus Magnesium Total Bilirubin AST ALT Alkaline Phosphatase Ammonia Total Creatine Kinase CK-MB (CK-2) CK-MB (CK-2) Rel Index Total Protein Albumin Urine WBC (Auto) Vancomycin Trough Salicylates Acetaminophen Plasma/Serum Alcohol Crossmatch 01/16/20 01/16/20 01/17/20 12:15 23:46 05:32 WBC 13.6 H RBC 3.27 L Hgb 9.3 L Hct 28.5 L MCH RDW 17.0 H Plt Count 490 H Lymph % (Auto) 13.1 L [place] % (Auto) [place] # 1.0 H Baso # Seg Neutrophils % 77.5 H Seg Neuts % (Manual) Lymphocytes % (Manual) Monocytes % (Manual) Seg Neutrophils # 10.5 H Seg Neutrophils # Man Lymphocytes # (Manual) Monocytes # (Manual) Eosinophils # (Manual) Basophils # (Manual) PT INR APTT ABG pH ABG pO2 ABG HCO3 ABG O2 Saturation ABG Base Excess ABG Hemoglobin Oxyhemoglobin Sodium Potassium Chloride Carbon Dioxide BUN Creatinine Glucose POC Glucose 152 H 107 H Lactic Acid Calcium Ionized Calcium Phosphorus Magnesium Total Bilirubin AST ALT Alkaline Phosphatase Ammonia Total Creatine Kinase CK-MB (CK-2) CK-MB (CK-2) Rel Index Total Protein Albumin Urine WBC (Auto) Vancomycin Trough Salicylates Acetaminophen Plasma/Serum Alcohol Crossmatch 01/17/20 01/17/20 01/17/20 06:47 12:16 17:21 WBC RBC Hgb Hct MCH RDW Plt Count Lymph % (Auto) [place] % (Auto) [place] # Baso # Seg Neutrophils % Seg Neuts % (Manual) Lymphocytes % (Manual) Monocytes % (Manual) Seg Neutrophils # Seg Neutrophils # Man Lymphocytes # (Manual) Monocytes # (Manual) Eosinophils # (Manual) Basophils # (Manual) PT INR APTT ABG pH ABG pO2 ABG HCO3 ABG O2 Saturation ABG Base Excess ABG Hemoglobin Oxyhemoglobin Sodium Potassium Chloride Carbon Dioxide BUN Creatinine Glucose POC Glucose 112 H 145 H 150 H Lactic Acid Calcium Ionized Calcium Phosphorus Magnesium Total Bilirubin AST ALT Alkaline Phosphatase Ammonia Total Creatine Kinase CK-MB (CK-2) CK-MB (CK-2) Rel Index Total Protein Albumin Urine WBC (Auto) Vancomycin Trough Salicylates Acetaminophen Plasma/Serum Alcohol Crossmatch 01/17/20 01/18/20 01/18/20 23:34 05:47 12:43 WBC RBC Hgb Hct MCH RDW Plt Count Lymph % (Auto) [place] % (Auto) [place] # Baso # Seg Neutrophils % Seg Neuts % (Manual) Lymphocytes % (Manual) Monocytes % (Manual) Seg Neutrophils # Seg Neutrophils # Man Lymphocytes # (Manual) Monocytes # (Manual) Eosinophils # (Manual) Basophils # (Manual) PT INR APTT ABG pH ABG pO2 ABG HCO3 ABG O2 Saturation ABG Base Excess ABG Hemoglobin Oxyhemoglobin Sodium Potassium Chloride Carbon Dioxide BUN Creatinine Glucose POC Glucose 160 H 130 H 124 H Lactic Acid Calcium Ionized Calcium Phosphorus Magnesium Total Bilirubin AST ALT Alkaline Phosphatase Ammonia Total Creatine Kinase CK-MB (CK-2) CK-MB (CK-2) Rel Index Total Protein Albumin Urine WBC (Auto) Vancomycin Trough Salicylates Acetaminophen Plasma/Serum Alcohol Crossmatch 01/18/20 01/19/20 01/19/20 18:26 00:14 06:24 WBC RBC Hgb Hct MCH RDW Plt Count Lymph % (Auto) [place] % (Auto) [place] # Baso # Seg Neutrophils % Seg Neuts % (Manual) Lymphocytes % (Manual) Monocytes % (Manual) Seg Neutrophils # Seg Neutrophils # Man Lymphocytes # (Manual) Monocytes # (Manual) Eosinophils # (Manual) Basophils # (Manual) PT INR APTT ABG pH ABG pO2 ABG HCO3 ABG O2 Saturation ABG Base Excess ABG Hemoglobin Oxyhemoglobin Sodium Potassium Chloride Carbon Dioxide BUN Creatinine Glucose POC Glucose 119 H 114 H 144 H Lactic Acid Calcium Ionized Calcium Phosphorus Magnesium Total Bilirubin AST ALT Alkaline Phosphatase Ammonia Total Creatine Kinase CK-MB (CK-2) CK-MB (CK-2) Rel Index Total Protein Albumin Urine WBC (Auto) Vancomycin Trough Salicylates Acetaminophen Plasma/Serum Alcohol Crossmatch 01/19/20 01/19/20 01/20/20 12:24 17:50 12:06 WBC RBC Hgb Hct MCH RDW Plt Count Lymph % (Auto) [place] % (Auto) [place] # Baso # Seg Neutrophils % Seg Neuts % (Manual) Lymphocytes % (Manual) Monocytes % (Manual) Seg Neutrophils # Seg Neutrophils # Man Lymphocytes # (Manual) Monocytes # (Manual) Eosinophils # (Manual) Basophils # (Manual) PT INR APTT ABG pH ABG pO2 ABG HCO3 ABG O2 Saturation ABG Base Excess ABG Hemoglobin Oxyhemoglobin Sodium Potassium Chloride Carbon Dioxide BUN Creatinine Glucose POC Glucose 132 H 144 H 135 H Lactic Acid Calcium Ionized Calcium Phosphorus Magnesium Total Bilirubin AST ALT Alkaline Phosphatase Ammonia Total Creatine Kinase CK-MB (CK-2) CK-MB (CK-2) Rel Index Total Protein Albumin Urine WBC (Auto) Vancomycin Trough Salicylates Acetaminophen Plasma/Serum Alcohol Crossmatch 01/21/20 01/21/20 01/21/20 05:46 13:02 23:49 WBC RBC Hgb Hct MCH RDW Plt Count Lymph % (Auto) [place] % (Auto) [place] # Baso # Seg Neutrophils % Seg Neuts % (Manual) Lymphocytes % (Manual) Monocytes % (Manual) Seg Neutrophils # Seg Neutrophils # Man Lymphocytes # (Manual) Monocytes # (Manual) Eosinophils # (Manual) Basophils # (Manual) PT INR APTT ABG pH ABG pO2 ABG HCO3 ABG O2 Saturation ABG Base Excess ABG Hemoglobin Oxyhemoglobin Sodium Potassium Chloride Carbon Dioxide BUN Creatinine Glucose POC Glucose 114 H 136 H 120 H Lactic Acid Calcium Ionized Calcium Phosphorus Magnesium Total Bilirubin AST ALT Alkaline Phosphatase Ammonia Total Creatine Kinase CK-MB (CK-2) CK-MB (CK-2) Rel Index Total Protein Albumin Urine WBC (Auto) Vancomycin Trough Salicylates Acetaminophen Plasma/Serum Alcohol Crossmatch 01/22/20 01/22/20 01/22/20 05:41 11:44 16:31 WBC RBC Hgb Hct MCH RDW Plt Count Lymph % (Auto) [place] % (Auto) [place] # Baso # Seg Neutrophils % Seg Neuts % (Manual) Lymphocytes % (Manual) Monocytes % (Manual) Seg Neutrophils # Seg Neutrophils # Man Lymphocytes # (Manual) Monocytes # (Manual) Eosinophils # (Manual) Basophils # (Manual) PT INR APTT ABG pH ABG pO2 ABG HCO3 ABG O2 Saturation ABG Base Excess ABG Hemoglobin Oxyhemoglobin Sodium Potassium Chloride Carbon Dioxide BUN Creatinine Glucose POC Glucose 124 H 173 H 111 H Lactic Acid Calcium Ionized Calcium Phosphorus Magnesium Total Bilirubin AST ALT Alkaline Phosphatase Ammonia Total Creatine Kinase CK-MB (CK-2) CK-MB (CK-2) Rel Index Total Protein Albumin Urine WBC (Auto) Vancomycin Trough Salicylates Acetaminophen Plasma/Serum Alcohol Crossmatch 01/22/20 01/23/20 01/23/20 23:25 05:15 12:15 WBC RBC Hgb Hct MCH RDW Plt Count Lymph % (Auto) [place] % (Auto) [place] # Baso # Seg Neutrophils % Seg Neuts % (Manual) Lymphocytes % (Manual) Monocytes % (Manual) Seg Neutrophils # Seg Neutrophils # Man Lymphocytes # (Manual) Monocytes # (Manual) Eosinophils # (Manual) Basophils # (Manual) PT INR APTT ABG pH ABG pO2 ABG HCO3 ABG O2 Saturation ABG Base Excess ABG Hemoglobin Oxyhemoglobin Sodium Potassium Chloride Carbon Dioxide BUN Creatinine Glucose POC Glucose 134 H 117 H 129 H Lactic Acid Calcium Ionized Calcium Phosphorus Magnesium Total Bilirubin AST ALT Alkaline Phosphatase Ammonia Total Creatine Kinase CK-MB (CK-2) CK-MB (CK-2) Rel Index Total Protein Albumin Urine WBC (Auto) Vancomycin Trough Salicylates Acetaminophen Plasma/Serum Alcohol Crossmatch 01/23/20 01/23/20 01/23/20 16:58 21:17 23:47 WBC RBC Hgb Hct MCH RDW Plt Count Lymph % (Auto) [place] % (Auto) [place] # Baso # Seg Neutrophils % Seg Neuts % (Manual) Lymphocytes % (Manual) Monocytes % (Manual) Seg Neutrophils # Seg Neutrophils # Man Lymphocytes # (Manual) Monocytes # (Manual) Eosinophils # (Manual) Basophils # (Manual) PT INR APTT ABG pH ABG pO2 ABG HCO3 ABG O2 Saturation ABG Base Excess ABG Hemoglobin Oxyhemoglobin Sodium Potassium Chloride Carbon Dioxide BUN Creatinine Glucose POC Glucose 156 H 185 H 156 H Lactic Acid Calcium Ionized Calcium Phosphorus Magnesium Total Bilirubin AST ALT Alkaline Phosphatase Ammonia Total Creatine Kinase CK-MB (CK-2) CK-MB (CK-2) Rel Index Total Protein Albumin Urine WBC (Auto) Vancomycin Trough Salicylates Acetaminophen Plasma/Serum Alcohol Crossmatch 01/24/20 01/24/20 01/24/20 04:47 04:47 05:59 WBC 17.8 H RBC 3.60 L Hgb Hct MCH RDW 16.2 H Plt Count 688 H Lymph % (Auto) 11.8 L [place] % (Auto) 7.5 H [place] # 1.3 H Baso # Seg Neutrophils % 79.9 H Seg Neuts % (Manual) Lymphocytes % (Manual) Monocytes % (Manual) Seg Neutrophils # 14.2 H Seg Neutrophils # Man Lymphocytes # (Manual) Monocytes # (Manual) Eosinophils # (Manual) Basophils # (Manual) PT INR APTT ABG pH ABG pO2 ABG HCO3 ABG O2 Saturation ABG Base Excess ABG Hemoglobin Oxyhemoglobin Sodium 131 L Potassium Chloride 91.2 L Carbon Dioxide BUN 22 H Creatinine 0.3 L Glucose 123 H POC Glucose 147 H Lactic Acid Calcium 10.9 H Ionized Calcium Phosphorus Magnesium Total Bilirubin AST ALT Alkaline Phosphatase Ammonia Total Creatine Kinase CK-MB (CK-2) CK-MB (CK-2) Rel Index Total Protein Albumin Urine WBC (Auto) Vancomycin Trough Salicylates Acetaminophen Plasma/Serum Alcohol Crossmatch 01/24/20 01/24/20 01/25/20 11:47 16:45 00:18 WBC RBC Hgb Hct MCH RDW Plt Count Lymph % (Auto) [place] % (Auto) [place] # Baso # Seg Neutrophils % Seg Neuts % (Manual) Lymphocytes % (Manual) Monocytes % (Manual) Seg Neutrophils # Seg Neutrophils # Man Lymphocytes # (Manual) Monocytes # (Manual) Eosinophils # (Manual) Basophils # (Manual) PT INR APTT ABG pH ABG pO2 ABG HCO3 ABG O2 Saturation ABG Base Excess ABG Hemoglobin Oxyhemoglobin Sodium Potassium Chloride Carbon Dioxide BUN Creatinine Glucose POC Glucose 114 H 108 H 119 H Lactic Acid Calcium Ionized Calcium Phosphorus Magnesium Total Bilirubin AST ALT Alkaline Phosphatase Ammonia Total Creatine Kinase CK-MB (CK-2) CK-MB (CK-2) Rel Index Total Protein Albumin Urine WBC (Auto) Vancomycin Trough Salicylates Acetaminophen Plasma/Serum Alcohol Crossmatch 01/25/20 01/25/20 01/25/20 07:18 11:58 16:56 WBC RBC Hgb Hct MCH RDW Plt Count Lymph % (Auto) [place] % (Auto) [place] # Baso # Seg Neutrophils % Seg Neuts % (Manual) Lymphocytes % (Manual) Monocytes % (Manual) Seg Neutrophils # Seg Neutrophils # Man Lymphocytes # (Manual) Monocytes # (Manual) Eosinophils # (Manual) Basophils # (Manual) PT INR APTT ABG pH ABG pO2 ABG HCO3 ABG O2 Saturation ABG Base Excess ABG Hemoglobin Oxyhemoglobin Sodium Potassium Chloride Carbon Dioxide BUN Creatinine Glucose POC Glucose 136 H 136 H 147 H Lactic Acid Calcium Ionized Calcium Phosphorus Magnesium Total Bilirubin AST ALT Alkaline Phosphatase Ammonia Total Creatine Kinase CK-MB (CK-2) CK-MB (CK-2) Rel Index Total Protein Albumin Urine WBC (Auto) Vancomycin Trough Salicylates Acetaminophen Plasma/Serum Alcohol Crossmatch 01/26/20 01/26/20 01/26/20 00:29 05:59 05:59 WBC 12.8 H RBC Hgb Hct MCH RDW 16.4 H Plt Count 743 H Lymph % (Auto) [place] % (Auto) [place] # 0.9 H Baso # Seg Neutrophils % 76.2 H Seg Neuts % (Manual) Lymphocytes % (Manual) Monocytes % (Manual) Seg Neutrophils # 9.8 H Seg Neutrophils # Man Lymphocytes # (Manual) Monocytes # (Manual) Eosinophils # (Manual) Basophils # (Manual) PT INR APTT ABG pH ABG pO2 ABG HCO3 ABG O2 Saturation ABG Base Excess ABG Hemoglobin Oxyhemoglobin Sodium 132 L Potassium Chloride 90.9 L Carbon Dioxide BUN 23 H Creatinine 0.4 L Glucose 122 H POC Glucose 107 H Lactic Acid Calcium 11.0 H Ionized Calcium Phosphorus Magnesium Total Bilirubin AST ALT Alkaline Phosphatase Ammonia Total Creatine Kinase CK-MB (CK-2) CK-MB (CK-2) Rel Index Total Protein Albumin Urine WBC (Auto) Vancomycin Trough Salicylates Acetaminophen Plasma/Serum Alcohol Crossmatch 01/26/20 01/26/20 01/26/20 06:27 12:06 16:49 WBC RBC Hgb Hct MCH RDW Plt Count Lymph % (Auto) [place] % (Auto) [place] # Baso # Seg Neutrophils % Seg Neuts % (Manual) Lymphocytes % (Manual) Monocytes % (Manual) Seg Neutrophils # Seg Neutrophils # Man Lymphocytes # (Manual) Monocytes # (Manual) Eosinophils # (Manual) Basophils # (Manual) PT INR APTT ABG pH ABG pO2 ABG HCO3 ABG O2 Saturation ABG Base Excess ABG Hemoglobin Oxyhemoglobin Sodium Potassium Chloride Carbon Dioxide BUN Creatinine Glucose POC Glucose 132 H 132 H 110 H Lactic Acid Calcium Ionized Calcium Phosphorus Magnesium Total Bilirubin AST ALT Alkaline Phosphatase Ammonia Total Creatine Kinase CK-MB (CK-2) CK-MB (CK-2) Rel Index Total Protein Albumin Urine WBC (Auto) Vancomycin Trough Salicylates Acetaminophen Plasma/Serum Alcohol Crossmatch 01/27/20 01/27/20 01/27/20 00:08 11:49 16:24 WBC RBC Hgb Hct MCH RDW Plt Count Lymph % (Auto) [place] % (Auto) [place] # Baso # Seg Neutrophils % Seg Neuts % (Manual) Lymphocytes % (Manual) Monocytes % (Manual) Seg Neutrophils # Seg Neutrophils # Man Lymphocytes # (Manual) Monocytes # (Manual) Eosinophils # (Manual) Basophils # (Manual) PT INR APTT ABG pH ABG pO2 ABG HCO3 ABG O2 Saturation ABG Base Excess ABG Hemoglobin Oxyhemoglobin Sodium Potassium Chloride Carbon Dioxide BUN Creatinine Glucose POC Glucose 107 H 119 H 129 H Lactic Acid Calcium Ionized Calcium Phosphorus Magnesium Total Bilirubin AST ALT Alkaline Phosphatase Ammonia Total Creatine Kinase CK-MB (CK-2) CK-MB (CK-2) Rel Index Total Protein Albumin Urine WBC (Auto) Vancomycin Trough Salicylates Acetaminophen Plasma/Serum Alcohol Crossmatch 01/27/20 01/28/20 01/28/20 18:28 01:00 06:22 WBC RBC Hgb Hct MCH RDW Plt Count Lymph % (Auto) [place] % (Auto) [place] # Baso # Seg Neutrophils % Seg Neuts % (Manual) Lymphocytes % (Manual) Monocytes % (Manual) Seg Neutrophils # Seg Neutrophils # Man Lymphocytes # (Manual) Monocytes # (Manual) Eosinophils # (Manual) Basophils # (Manual) PT INR APTT ABG pH ABG pO2 ABG HCO3 ABG O2 Saturation ABG Base Excess ABG Hemoglobin Oxyhemoglobin Sodium Potassium Chloride Carbon Dioxide BUN Creatinine Glucose POC Glucose 126 H 121 H 114 H Lactic Acid Calcium Ionized Calcium Phosphorus Magnesium Total Bilirubin AST ALT Alkaline Phosphatase Ammonia Total Creatine Kinase CK-MB (CK-2) CK-MB (CK-2) Rel Index Total Protein Albumin Urine WBC (Auto) Vancomycin Trough Salicylates Acetaminophen Plasma/Serum Alcohol Crossmatch 01/28/20 01/28/20 01/29/20 11:47 18:00 00:05 WBC RBC Hgb Hct MCH RDW Plt Count Lymph % (Auto) [place] % (Auto) [place] # Baso # Seg Neutrophils % Seg Neuts % (Manual) Lymphocytes % (Manual) Monocytes % (Manual) Seg Neutrophils # Seg Neutrophils # Man Lymphocytes # (Manual) Monocytes # (Manual) Eosinophils # (Manual) Basophils # (Manual) PT INR APTT ABG pH ABG pO2 ABG HCO3 ABG O2 Saturation ABG Base Excess ABG Hemoglobin Oxyhemoglobin Sodium Potassium Chloride Carbon Dioxide BUN Creatinine Glucose POC Glucose 106 H 117 H 127 H Lactic Acid Calcium Ionized Calcium Phosphorus Magnesium Total Bilirubin AST ALT Alkaline Phosphatase Ammonia Total Creatine Kinase CK-MB (CK-2) CK-MB (CK-2) Rel Index Total Protein Albumin Urine WBC (Auto) Vancomycin Trough Salicylates Acetaminophen Plasma/Serum Alcohol Crossmatch 01/29/20 01/29/20 01/29/20 06:04 11:40 16:38 WBC RBC Hgb Hct MCH RDW Plt Count Lymph % (Auto) [place] % (Auto) [place] # Baso # Seg Neutrophils % Seg Neuts % (Manual) Lymphocytes % (Manual) Monocytes % (Manual) Seg Neutrophils # Seg Neutrophils # Man Lymphocytes # (Manual) Monocytes # (Manual) Eosinophils # (Manual) Basophils # (Manual) PT INR APTT ABG pH ABG pO2 ABG HCO3 ABG O2 Saturation ABG Base Excess ABG Hemoglobin Oxyhemoglobin Sodium Potassium Chloride Carbon Dioxide BUN Creatinine Glucose POC Glucose 147 H 139 H 143 H Lactic Acid Calcium Ionized Calcium Phosphorus Magnesium Total Bilirubin AST ALT Alkaline Phosphatase Ammonia Total Creatine Kinase CK-MB (CK-2) CK-MB (CK-2) Rel Index Total Protein Albumin Urine WBC (Auto) Vancomycin Trough Salicylates Acetaminophen Plasma/Serum Alcohol Crossmatch 01/29/20 01/30/20 01/30/20 23:46 06:43 12:07 WBC RBC Hgb Hct MCH RDW Plt Count Lymph % (Auto) [place] % (Auto) [place] # Baso # Seg Neutrophils % Seg Neuts % (Manual) Lymphocytes % (Manual) Monocytes % (Manual) Seg Neutrophils # Seg Neutrophils # Man Lymphocytes # (Manual) Monocytes # (Manual) Eosinophils # (Manual) Basophils # (Manual) PT INR APTT ABG pH ABG pO2 ABG HCO3 ABG O2 Saturation ABG Base Excess ABG Hemoglobin Oxyhemoglobin Sodium Potassium Chloride Carbon Dioxide BUN Creatinine Glucose POC Glucose 122 H 122 H 134 H Lactic Acid Calcium Ionized Calcium Phosphorus Magnesium Total Bilirubin AST ALT Alkaline Phosphatase Ammonia Total Creatine Kinase CK-MB (CK-2) CK-MB (CK-2) Rel Index Total Protein Albumin Urine WBC (Auto) Vancomycin Trough Salicylates Acetaminophen Plasma/Serum Alcohol Crossmatch 01/30/20 01/31/20 01/31/20 17:59 00:52 05:54 WBC RBC Hgb Hct MCH RDW Plt Count Lymph % (Auto) [place] % (Auto) [place] # Baso # Seg Neutrophils % Seg Neuts % (Manual) Lymphocytes % (Manual) Monocytes % (Manual) Seg Neutrophils # Seg Neutrophils # Man Lymphocytes # (Manual) Monocytes # (Manual) Eosinophils # (Manual) Basophils # (Manual) PT INR APTT ABG pH ABG pO2 ABG HCO3 ABG O2 Saturation ABG Base Excess ABG Hemoglobin Oxyhemoglobin Sodium Potassium Chloride Carbon Dioxide BUN Creatinine Glucose POC Glucose 116 H 127 H 127 H Lactic Acid Calcium Ionized Calcium Phosphorus Magnesium Total Bilirubin AST ALT Alkaline Phosphatase Ammonia Total Creatine Kinase CK-MB (CK-2) CK-MB (CK-2) Rel Index Total Protein Albumin Urine WBC (Auto) Vancomycin Trough Salicylates Acetaminophen Plasma/Serum Alcohol Crossmatch 01/31/20 02/01/20 02/01/20 12:20 00:48 12:21 WBC RBC Hgb Hct MCH RDW Plt Count Lymph % (Auto) [place] % (Auto) [place] # Baso # Seg Neutrophils % Seg Neuts % (Manual) Lymphocytes % (Manual) Monocytes % (Manual) Seg Neutrophils # Seg Neutrophils # Man Lymphocytes # (Manual) Monocytes # (Manual) Eosinophils # (Manual) Basophils # (Manual) PT INR APTT ABG pH ABG pO2 ABG HCO3 ABG O2 Saturation ABG Base Excess ABG Hemoglobin Oxyhemoglobin Sodium Potassium Chloride Carbon Dioxide BUN Creatinine Glucose POC Glucose 126 H 154 H 123 H Lactic Acid Calcium Ionized Calcium Phosphorus Magnesium Total Bilirubin AST ALT Alkaline Phosphatase Ammonia Total Creatine Kinase CK-MB (CK-2) CK-MB (CK-2) Rel Index Total Protein Albumin Urine WBC (Auto) Vancomycin Trough Salicylates Acetaminophen Plasma/Serum Alcohol Crossmatch 02/01/20 02/02/20 02/02/20 23:58 06:08 11:50 WBC RBC Hgb Hct MCH RDW Plt Count Lymph % (Auto) [place] % (Auto) [place] # Baso # Seg Neutrophils % Seg Neuts % (Manual) Lymphocytes % (Manual) Monocytes % (Manual) Seg Neutrophils # Seg Neutrophils # Man Lymphocytes # (Manual) Monocytes # (Manual) Eosinophils # (Manual) Basophils # (Manual) PT INR APTT ABG pH ABG pO2 ABG HCO3 ABG O2 Saturation ABG Base Excess ABG Hemoglobin Oxyhemoglobin Sodium Potassium Chloride Carbon Dioxide BUN Creatinine Glucose POC Glucose 125 H 144 H 131 H Lactic Acid Calcium Ionized Calcium Phosphorus Magnesium Total Bilirubin AST ALT Alkaline Phosphatase Ammonia Total Creatine Kinase CK-MB (CK-2) CK-MB (CK-2) Rel Index Total Protein Albumin Urine WBC (Auto) Vancomycin Trough Salicylates Acetaminophen Plasma/Serum Alcohol Crossmatch 02/02/20 02/03/20 02/03/20 17:53 00:14 05:47 WBC RBC Hgb Hct MCH RDW Plt Count Lymph % (Auto) [place] % (Auto) [place] # Baso # Seg Neutrophils % Seg Neuts % (Manual) Lymphocytes % (Manual) Monocytes % (Manual) Seg Neutrophils # Seg Neutrophils # Man Lymphocytes # (Manual) Monocytes # (Manual) Eosinophils # (Manual) Basophils # (Manual) PT INR APTT ABG pH ABG pO2 ABG HCO3 ABG O2 Saturation ABG Base Excess ABG Hemoglobin Oxyhemoglobin Sodium Potassium Chloride Carbon Dioxide BUN Creatinine Glucose POC Glucose 108 H 122 H 118 H Lactic Acid Calcium Ionized Calcium Phosphorus Magnesium Total Bilirubin AST ALT Alkaline Phosphatase Ammonia Total Creatine Kinase CK-MB (CK-2) CK-MB (CK-2) Rel Index Total Protein Albumin Urine WBC (Auto) Vancomycin Trough Salicylates Acetaminophen Plasma/Serum Alcohol Crossmatch 02/03/20 02/03/20 02/03/20 05:59 05:59 11:49 WBC RBC 3.48 L Hgb Hct 29.9 L MCH RDW 16.2 H Plt Count 707 H Lymph % (Auto) [place] % (Auto) 9.3 H [place] # 0.9 H Baso # Seg Neutrophils % Seg Neuts % (Manual) Lymphocytes % (Manual) Monocytes % (Manual) Seg Neutrophils # Seg Neutrophils # Man Lymphocytes # (Manual) Monocytes # (Manual) Eosinophils # (Manual) Basophils # (Manual) PT INR APTT ABG pH ABG pO2 ABG HCO3 ABG O2 Saturation ABG Base Excess ABG Hemoglobin Oxyhemoglobin Sodium 136 L Potassium Chloride 93.4 L Carbon Dioxide BUN 20 H Creatinine 0.5 L Glucose 101 H POC Glucose 133 H Lactic Acid Calcium 10.8 H Ionized Calcium Phosphorus Magnesium Total Bilirubin AST ALT Alkaline Phosphatase Ammonia Total Creatine Kinase CK-MB (CK-2) CK-MB (CK-2) Rel Index Total Protein Albumin Urine WBC (Auto) Vancomycin Trough Salicylates Acetaminophen Plasma/Serum Alcohol Crossmatch 02/03/20 02/04/20 02/04/20 23:19 05:37 23:56 WBC RBC Hgb Hct MCH RDW Plt Count Lymph % (Auto) [place] % (Auto) [place] # Baso # Seg Neutrophils % Seg Neuts % (Manual) Lymphocytes % (Manual) Monocytes % (Manual) Seg Neutrophils # Seg Neutrophils # Man Lymphocytes # (Manual) Monocytes # (Manual) Eosinophils # (Manual) Basophils # (Manual) PT INR APTT ABG pH ABG pO2 ABG HCO3 ABG O2 Saturation ABG Base Excess ABG Hemoglobin Oxyhemoglobin Sodium Potassium Chloride Carbon Dioxide BUN Creatinine Glucose POC Glucose 135 H 108 H 158 H Lactic Acid Calcium Ionized Calcium Phosphorus Magnesium Total Bilirubin AST ALT Alkaline Phosphatase Ammonia Total Creatine Kinase CK-MB (CK-2) CK-MB (CK-2) Rel Index Total Protein Albumin Urine WBC (Auto) Vancomycin Trough Salicylates Acetaminophen Plasma/Serum Alcohol Crossmatch 02/05/20 02/05/20 02/06/20 05:33 23:24 05:50 WBC RBC Hgb Hct MCH RDW Plt Count Lymph % (Auto) [place] % (Auto) [place] # Baso # Seg Neutrophils % Seg Neuts % (Manual) Lymphocytes % (Manual) Monocytes % (Manual) Seg Neutrophils # Seg Neutrophils # Man Lymphocytes # (Manual) Monocytes # (Manual) Eosinophils # (Manual) Basophils # (Manual) PT INR APTT ABG pH ABG pO2 ABG HCO3 ABG O2 Saturation ABG Base Excess ABG Hemoglobin Oxyhemoglobin Sodium Potassium Chloride Carbon Dioxide BUN Creatinine Glucose POC Glucose 152 H 158 H 110 H Lactic Acid Calcium Ionized Calcium Phosphorus Magnesium Total Bilirubin AST ALT Alkaline Phosphatase Ammonia Total Creatine Kinase CK-MB (CK-2) CK-MB (CK-2) Rel Index Total Protein Albumin Urine WBC (Auto) Vancomycin Trough Salicylates Acetaminophen Plasma/Serum Alcohol Crossmatch 02/06/20 02/07/20 02/07/20 16:03 00:13 05:27 WBC RBC Hgb Hct MCH RDW Plt Count Lymph % (Auto) [place] % (Auto) [place] # Baso # Seg Neutrophils % Seg Neuts % (Manual) Lymphocytes % (Manual) Monocytes % (Manual) Seg Neutrophils # Seg Neutrophils # Man Lymphocytes # (Manual) Monocytes # (Manual) Eosinophils # (Manual) Basophils # (Manual) PT INR APTT ABG pH ABG pO2 ABG HCO3 ABG O2 Saturation ABG Base Excess ABG Hemoglobin Oxyhemoglobin Sodium Potassium Chloride Carbon Dioxide BUN Creatinine Glucose POC Glucose 130 H 115 H 115 H Lactic Acid Calcium Ionized Calcium Phosphorus Magnesium Total Bilirubin AST ALT Alkaline Phosphatase Ammonia Total Creatine Kinase CK-MB (CK-2) CK-MB (CK-2) Rel Index Total Protein Albumin Urine WBC (Auto) Vancomycin Trough Salicylates Acetaminophen Plasma/Serum Alcohol Crossmatch 02/07/20 02/07/20 02/08/20 11:42 17:23 00:37 WBC RBC Hgb Hct MCH RDW Plt Count Lymph % (Auto) [place] % (Auto) [place] # Baso # Seg Neutrophils % Seg Neuts % (Manual) Lymphocytes % (Manual) Monocytes % (Manual) Seg Neutrophils # Seg Neutrophils # Man Lymphocytes # (Manual) Monocytes # (Manual) Eosinophils # (Manual) Basophils # (Manual) PT INR APTT ABG pH ABG pO2 ABG HCO3 ABG O2 Saturation ABG Base Excess ABG Hemoglobin Oxyhemoglobin Sodium Potassium Chloride Carbon Dioxide BUN Creatinine Glucose POC Glucose 113 H 114 H 136 H Lactic Acid Calcium Ionized Calcium Phosphorus Magnesium Total Bilirubin AST ALT Alkaline Phosphatase Ammonia Total Creatine Kinase CK-MB (CK-2) CK-MB (CK-2) Rel Index Total Protein Albumin Urine WBC (Auto) Vancomycin Trough Salicylates Acetaminophen Plasma/Serum Alcohol Crossmatch 02/08/20 02/08/20 02/08/20 08:52 11:42 17:02 WBC RBC Hgb Hct MCH RDW Plt Count Lymph % (Auto) [place] % (Auto) [place] # Baso # Seg Neutrophils % Seg Neuts % (Manual) Lymphocytes % (Manual) Monocytes % (Manual) Seg Neutrophils # Seg Neutrophils # Man Lymphocytes # (Manual) Monocytes # (Manual) Eosinophils # (Manual) Basophils # (Manual) PT INR APTT ABG pH ABG pO2 ABG HCO3 ABG O2 Saturation ABG Base Excess ABG Hemoglobin Oxyhemoglobin Sodium 136 L Potassium Chloride 95.7 L Carbon Dioxide BUN 21 H Creatinine 0.4 L Glucose POC Glucose 128 H 145 H Lactic Acid Calcium 10.4 H Ionized Calcium Phosphorus Magnesium Total Bilirubin AST ALT Alkaline Phosphatase Ammonia Total Creatine Kinase CK-MB (CK-2) CK-MB (CK-2) Rel Index Total Protein Albumin Urine WBC (Auto) Vancomycin Trough Salicylates Acetaminophen Plasma/Serum Alcohol Crossmatch 02/09/20 02/09/20 02/09/20 01:05 11:52 16:19 WBC RBC Hgb Hct MCH RDW Plt Count Lymph % (Auto) [place] % (Auto) [place] # Baso # Seg Neutrophils % Seg Neuts % (Manual) Lymphocytes % (Manual) Monocytes % (Manual) Seg Neutrophils # Seg Neutrophils # Man Lymphocytes # (Manual) Monocytes # (Manual) Eosinophils # (Manual) Basophils # (Manual) PT INR APTT ABG pH ABG pO2 ABG HCO3 ABG O2 Saturation ABG Base Excess ABG Hemoglobin Oxyhemoglobin Sodium Potassium Chloride Carbon Dioxide BUN Creatinine Glucose POC Glucose 117 H 141 H 113 H Lactic Acid Calcium Ionized Calcium Phosphorus Magnesium Total Bilirubin AST ALT Alkaline Phosphatase Ammonia Total Creatine Kinase CK-MB (CK-2) CK-MB (CK-2) Rel Index Total Protein Albumin Urine WBC (Auto) Vancomycin Trough Salicylates Acetaminophen Plasma/Serum Alcohol Crossmatch 02/10/20 02/10/20 02/10/20 05:25 12:50 17:08 WBC RBC Hgb Hct MCH RDW Plt Count Lymph % (Auto) [place] % (Auto) [place] # Baso # Seg Neutrophils % Seg Neuts % (Manual) Lymphocytes % (Manual) Monocytes % (Manual) Seg Neutrophils # Seg Neutrophils # Man Lymphocytes # (Manual) Monocytes # (Manual) Eosinophils # (Manual) Basophils # (Manual) PT INR APTT ABG pH ABG pO2 ABG HCO3 ABG O2 Saturation ABG Base Excess ABG Hemoglobin Oxyhemoglobin Sodium Potassium Chloride Carbon Dioxide BUN Creatinine Glucose POC Glucose 136 H 127 H 111 H Lactic Acid Calcium Ionized Calcium Phosphorus Magnesium Total Bilirubin AST ALT Alkaline Phosphatase Ammonia Total Creatine Kinase CK-MB (CK-2) CK-MB (CK-2) Rel Index Total Protein Albumin Urine WBC (Auto) Vancomycin Trough Salicylates Acetaminophen Plasma/Serum Alcohol Crossmatch 02/10/20 02/11/20 02/11/20 23:55 06:11 12:07 WBC RBC Hgb Hct MCH RDW Plt Count Lymph % (Auto) [place] % (Auto) [place] # Baso # Seg Neutrophils % Seg Neuts % (Manual) Lymphocytes % (Manual) Monocytes % (Manual) Seg Neutrophils # Seg Neutrophils # Man Lymphocytes # (Manual) Monocytes # (Manual) Eosinophils # (Manual) Basophils # (Manual) PT INR APTT ABG pH ABG pO2 ABG HCO3 ABG O2 Saturation ABG Base Excess ABG Hemoglobin Oxyhemoglobin Sodium Potassium Chloride Carbon Dioxide BUN Creatinine Glucose POC Glucose 129 H 128 H 141 H Lactic Acid Calcium Ionized Calcium Phosphorus Magnesium Total Bilirubin AST ALT Alkaline Phosphatase Ammonia Total Creatine Kinase CK-MB (CK-2) CK-MB (CK-2) Rel Index Total Protein Albumin Urine WBC (Auto) Vancomycin Trough Salicylates Acetaminophen Plasma/Serum Alcohol Crossmatch 02/11/20 02/12/20 02/13/20 18:22 02:39 06:45 WBC RBC Hgb Hct MCH RDW Plt Count Lymph % (Auto) [place] % (Auto) [place] # Baso # Seg Neutrophils % Seg Neuts % (Manual) Lymphocytes % (Manual) Monocytes % (Manual) Seg Neutrophils # Seg Neutrophils # Man Lymphocytes # (Manual) Monocytes # (Manual) Eosinophils # (Manual) Basophils # (Manual) PT INR APTT ABG pH ABG pO2 ABG HCO3 ABG O2 Saturation ABG Base Excess ABG Hemoglobin Oxyhemoglobin Sodium Potassium Chloride Carbon Dioxide BUN Creatinine Glucose POC Glucose 118 H 107 H 124 H Lactic Acid Calcium Ionized Calcium Phosphorus Magnesium Total Bilirubin AST ALT Alkaline Phosphatase Ammonia Total Creatine Kinase CK-MB (CK-2) CK-MB (CK-2) Rel Index Total Protein Albumin Urine WBC (Auto) Vancomycin Trough Salicylates Acetaminophen Plasma/Serum Alcohol Crossmatch 02/13/20 02/13/20 02/14/20 12:26 18:19 00:21 WBC RBC Hgb Hct MCH RDW Plt Count Lymph % (Auto) [place] % (Auto) [place] # Baso # Seg Neutrophils % Seg Neuts % (Manual) Lymphocytes % (Manual) Monocytes % (Manual) Seg Neutrophils # Seg Neutrophils # Man Lymphocytes # (Manual) Monocytes # (Manual) Eosinophils # (Manual) Basophils # (Manual) PT INR APTT ABG pH ABG pO2 ABG HCO3 ABG O2 Saturation ABG Base Excess ABG Hemoglobin Oxyhemoglobin Sodium Potassium Chloride Carbon Dioxide BUN Creatinine Glucose POC Glucose 124 H 118 H 130 H Lactic Acid Calcium Ionized Calcium Phosphorus Magnesium Total Bilirubin AST ALT Alkaline Phosphatase Ammonia Total Creatine Kinase CK-MB (CK-2) CK-MB (CK-2) Rel Index Total Protein Albumin Urine WBC (Auto) Vancomycin Trough Salicylates Acetaminophen Plasma/Serum Alcohol Crossmatch 02/14/20 02/14/20 02/16/20 11:19 16:16 00:58 WBC RBC Hgb Hct MCH RDW Plt Count Lymph % (Auto) [place] % (Auto) [place] # Baso # Seg Neutrophils % Seg Neuts % (Manual) Lymphocytes % (Manual) Monocytes % (Manual) Seg Neutrophils # Seg Neutrophils # Man Lymphocytes # (Manual) Monocytes # (Manual) Eosinophils # (Manual) Basophils # (Manual) PT INR APTT ABG pH ABG pO2 ABG HCO3 ABG O2 Saturation ABG Base Excess ABG Hemoglobin Oxyhemoglobin Sodium Potassium Chloride Carbon Dioxide BUN Creatinine Glucose POC Glucose 135 H 119 H 121 H Lactic Acid Calcium Ionized Calcium Phosphorus Magnesium Total Bilirubin AST ALT Alkaline Phosphatase Ammonia Total Creatine Kinase CK-MB (CK-2) CK-MB (CK-2) Rel Index Total Protein Albumin Urine WBC (Auto) Vancomycin Trough Salicylates Acetaminophen Plasma/Serum Alcohol Crossmatch 02/16/20 02/16/20 02/16/20 12:12 18:22 23:51 WBC RBC Hgb Hct MCH RDW Plt Count Lymph % (Auto) [place] % (Auto) [place] # Baso # Seg Neutrophils % Seg Neuts % (Manual) Lymphocytes % (Manual) Monocytes % (Manual) Seg Neutrophils # Seg Neutrophils # Man Lymphocytes # (Manual) Monocytes # (Manual) Eosinophils # (Manual) Basophils # (Manual) PT INR APTT ABG pH ABG pO2 ABG HCO3 ABG O2 Saturation ABG Base Excess ABG Hemoglobin Oxyhemoglobin Sodium Potassium Chloride Carbon Dioxide BUN Creatinine Glucose POC Glucose 107 H 106 H 128 H Lactic Acid Calcium Ionized Calcium Phosphorus Magnesium Total Bilirubin AST ALT Alkaline Phosphatase Ammonia Total Creatine Kinase CK-MB (CK-2) CK-MB (CK-2) Rel Index Total Protein Albumin Urine WBC (Auto) Vancomycin Trough Salicylates Acetaminophen Plasma/Serum Alcohol Crossmatch 02/17/20 02/17/20 02/17/20 05:50 07:57 07:57 WBC 12.6 H RBC 3.52 L Hgb Hct MCH RDW 15.3 H Plt Count 643 H Lymph % (Auto) [place] % (Auto) 8.0 H [place] # 1.0 H Baso # Seg Neutrophils % Seg Neuts % (Manual) Lymphocytes % (Manual) Monocytes % (Manual) Seg Neutrophils # 8.5 H Seg Neutrophils # Man Lymphocytes # (Manual) Monocytes # (Manual) Eosinophils # (Manual) Basophils # (Manual) PT INR APTT ABG pH ABG pO2 ABG HCO3 ABG O2 Saturation ABG Base Excess ABG Hemoglobin Oxyhemoglobin Sodium Potassium Chloride 96.9 L Carbon Dioxide BUN 21 H Creatinine 0.4 L Glucose 113 H POC Glucose 116 H Lactic Acid Calcium 10.5 H Ionized Calcium Phosphorus Magnesium Total Bilirubin AST ALT Alkaline Phosphatase Ammonia Total Creatine Kinase CK-MB (CK-2) CK-MB (CK-2) Rel Index Total Protein Albumin Urine WBC (Auto) Vancomycin Trough Salicylates Acetaminophen Plasma/Serum Alcohol Crossmatch 02/17/20 02/17/20 02/18/20 12:05 18:16 00:13 WBC RBC Hgb Hct MCH RDW Plt Count Lymph % (Auto) [place] % (Auto) [place] # Baso # Seg Neutrophils % Seg Neuts % (Manual) Lymphocytes % (Manual) Monocytes % (Manual) Seg Neutrophils # Seg Neutrophils # Man Lymphocytes # (Manual) Monocytes # (Manual) Eosinophils # (Manual) Basophils # (Manual) PT INR APTT ABG pH ABG pO2 ABG HCO3 ABG O2 Saturation ABG Base Excess ABG Hemoglobin Oxyhemoglobin Sodium Potassium Chloride Carbon Dioxide BUN Creatinine Glucose POC Glucose 139 H 127 H 144 H Lactic Acid Calcium Ionized Calcium Phosphorus Magnesium Total Bilirubin AST ALT Alkaline Phosphatase Ammonia Total Creatine Kinase CK-MB (CK-2) CK-MB (CK-2) Rel Index Total Protein Albumin Urine WBC (Auto) Vancomycin Trough Salicylates Acetaminophen Plasma/Serum Alcohol Crossmatch 02/18/20 02/18/20 02/19/20 17:41 23:28 05:17 WBC RBC Hgb Hct MCH RDW Plt Count Lymph % (Auto) [place] % (Auto) [place] # Baso # Seg Neutrophils % Seg Neuts % (Manual) Lymphocytes % (Manual) Monocytes % (Manual) Seg Neutrophils # Seg Neutrophils # Man Lymphocytes # (Manual) Monocytes # (Manual) Eosinophils # (Manual) Basophils # (Manual) PT INR APTT ABG pH ABG pO2 ABG HCO3 ABG O2 Saturation ABG Base Excess ABG Hemoglobin Oxyhemoglobin Sodium Potassium Chloride Carbon Dioxide BUN Creatinine Glucose POC Glucose 118 H 166 H 116 H Lactic Acid Calcium Ionized Calcium Phosphorus Magnesium Total Bilirubin AST ALT Alkaline Phosphatase Ammonia Total Creatine Kinase CK-MB (CK-2) CK-MB (CK-2) Rel Index Total Protein Albumin Urine WBC (Auto) Vancomycin Trough Salicylates Acetaminophen Plasma/Serum Alcohol Crossmatch 02/19/20 02/19/20 02/20/20 12:33 17:02 00:12 WBC RBC Hgb Hct MCH RDW Plt Count Lymph % (Auto) [place] % (Auto) [place] # Baso # Seg Neutrophils % Seg Neuts % (Manual) Lymphocytes % (Manual) Monocytes % (Manual) Seg Neutrophils # Seg Neutrophils # Man Lymphocytes # (Manual) Monocytes # (Manual) Eosinophils # (Manual) Basophils # (Manual) PT INR APTT ABG pH ABG pO2 ABG HCO3 ABG O2 Saturation ABG Base Excess ABG Hemoglobin Oxyhemoglobin Sodium Potassium Chloride Carbon Dioxide BUN Creatinine Glucose POC Glucose 115 H 108 H 153 H Lactic Acid Calcium Ionized Calcium Phosphorus Magnesium Total Bilirubin AST ALT Alkaline Phosphatase Ammonia Total Creatine Kinase CK-MB (CK-2) CK-MB (CK-2) Rel Index Total Protein Albumin Urine WBC (Auto) Vancomycin Trough Salicylates Acetaminophen Plasma/Serum Alcohol Crossmatch 02/20/20 02/20/20 02/21/20 12:00 23:13 05:07 WBC RBC Hgb Hct MCH RDW Plt Count Lymph % (Auto) [place] % (Auto) [place] # Baso # Seg Neutrophils % Seg Neuts % (Manual) Lymphocytes % (Manual) Monocytes % (Manual) Seg Neutrophils # Seg Neutrophils # Man Lymphocytes # (Manual) Monocytes # (Manual) Eosinophils # (Manual) Basophils # (Manual) PT INR APTT ABG pH ABG pO2 ABG HCO3 ABG O2 Saturation ABG Base Excess ABG Hemoglobin Oxyhemoglobin Sodium Potassium Chloride Carbon Dioxide BUN Creatinine Glucose POC Glucose 171 H 129 H 116 H Lactic Acid Calcium Ionized Calcium Phosphorus Magnesium Total Bilirubin AST ALT Alkaline Phosphatase Ammonia Total Creatine Kinase CK-MB (CK-2) CK-MB (CK-2) Rel Index Total Protein Albumin Urine WBC (Auto) Vancomycin Trough Salicylates Acetaminophen Plasma/Serum Alcohol Crossmatch 02/21/20 02/22/20 02/22/20 12:15 00:42 06:30 WBC RBC Hgb Hct MCH RDW Plt Count Lymph % (Auto) [place] % (Auto) [place] # Baso # Seg Neutrophils % Seg Neuts % (Manual) Lymphocytes % (Manual) Monocytes % (Manual) Seg Neutrophils # Seg Neutrophils # Man Lymphocytes # (Manual) Monocytes # (Manual) Eosinophils # (Manual) Basophils # (Manual) PT INR APTT ABG pH ABG pO2 ABG HCO3 ABG O2 Saturation ABG Base Excess ABG Hemoglobin Oxyhemoglobin Sodium Potassium Chloride Carbon Dioxide BUN Creatinine Glucose POC Glucose 124 H 142 H 117 H Lactic Acid Calcium Ionized Calcium Phosphorus Magnesium Total Bilirubin AST ALT Alkaline Phosphatase Ammonia Total Creatine Kinase CK-MB (CK-2) CK-MB (CK-2) Rel Index Total Protein Albumin Urine WBC (Auto) Vancomycin Trough Salicylates Acetaminophen Plasma/Serum Alcohol Crossmatch 02/22/20 02/22/20 02/23/20 12:20 17:55 12:46 WBC RBC Hgb Hct MCH RDW Plt Count Lymph % (Auto) [place] % (Auto) [place] # Baso # Seg Neutrophils % Seg Neuts % (Manual) Lymphocytes % (Manual) Monocytes % (Manual) Seg Neutrophils # Seg Neutrophils # Man Lymphocytes # (Manual) Monocytes # (Manual) Eosinophils # (Manual) Basophils # (Manual) PT INR APTT ABG pH ABG pO2 ABG HCO3 ABG O2 Saturation ABG Base Excess ABG Hemoglobin Oxyhemoglobin Sodium Potassium Chloride Carbon Dioxide BUN Creatinine Glucose POC Glucose 121 H 157 H 112 H Lactic Acid Calcium Ionized Calcium Phosphorus Magnesium Total Bilirubin AST ALT Alkaline Phosphatase Ammonia Total Creatine Kinase CK-MB (CK-2) CK-MB (CK-2) Rel Index Total Protein Albumin Urine WBC (Auto) Vancomycin Trough Salicylates Acetaminophen Plasma/Serum Alcohol Crossmatch 02/23/20 02/24/20 02/24/20 16:47 00:38 07:00 WBC RBC Hgb Hct MCH RDW Plt Count Lymph % (Auto) [place] % (Auto) [place] # Baso # Seg Neutrophils % Seg Neuts % (Manual) Lymphocytes % (Manual) Monocytes % (Manual) Seg Neutrophils # Seg Neutrophils # Man Lymphocytes # (Manual) Monocytes # (Manual) Eosinophils # (Manual) Basophils # (Manual) PT INR APTT ABG pH ABG pO2 ABG HCO3 ABG O2 Saturation ABG Base Excess ABG Hemoglobin Oxyhemoglobin Sodium Potassium Chloride Carbon Dioxide BUN Creatinine Glucose POC Glucose 142 H 138 H 118 H Lactic Acid Calcium Ionized Calcium Phosphorus Magnesium Total Bilirubin AST ALT Alkaline Phosphatase Ammonia Total Creatine Kinase CK-MB (CK-2) CK-MB (CK-2) Rel Index Total Protein Albumin Urine WBC (Auto) Vancomycin Trough Salicylates Acetaminophen Plasma/Serum Alcohol Crossmatch 02/24/20 02/24/20 02/25/20 11:41 18:33 18:24 WBC RBC Hgb Hct MCH RDW Plt Count Lymph % (Auto) [place] % (Auto) [place] # Baso # Seg Neutrophils % Seg Neuts % (Manual) Lymphocytes % (Manual) Monocytes % (Manual) Seg Neutrophils # Seg Neutrophils # Man Lymphocytes # (Manual) Monocytes # (Manual) Eosinophils # (Manual) Basophils # (Manual) PT INR APTT ABG pH ABG pO2 ABG HCO3 ABG O2 Saturation ABG Base Excess ABG Hemoglobin Oxyhemoglobin Sodium Potassium Chloride Carbon Dioxide BUN Creatinine Glucose POC Glucose 152 H 126 H 120 H Lactic Acid Calcium Ionized Calcium Phosphorus Magnesium Total Bilirubin AST ALT Alkaline Phosphatase Ammonia Total Creatine Kinase CK-MB (CK-2) CK-MB (CK-2) Rel Index Total Protein Albumin Urine WBC (Auto) Vancomycin Trough Salicylates Acetaminophen Plasma/Serum Alcohol Crossmatch 02/25/20 02/26/20 02/26/20 23:40 05:46 11:32 WBC RBC Hgb Hct MCH RDW Plt Count Lymph % (Auto) [place] % (Auto) [place] # Baso # Seg Neutrophils % Seg Neuts % (Manual) Lymphocytes % (Manual) Monocytes % (Manual) Seg Neutrophils # Seg Neutrophils # Man Lymphocytes # (Manual) Monocytes # (Manual) Eosinophils # (Manual) Basophils # (Manual) PT INR APTT ABG pH ABG pO2 ABG HCO3 ABG O2 Saturation ABG Base Excess ABG Hemoglobin Oxyhemoglobin Sodium Potassium Chloride Carbon Dioxide BUN Creatinine Glucose POC Glucose 114 H 113 H 106 H Lactic Acid Calcium Ionized Calcium Phosphorus Magnesium Total Bilirubin AST ALT Alkaline Phosphatase Ammonia Total Creatine Kinase CK-MB (CK-2) CK-MB (CK-2) Rel Index Total Protein Albumin Urine WBC (Auto) Vancomycin Trough Salicylates Acetaminophen Plasma/Serum Alcohol Crossmatch 02/26/20 02/27/20 02/27/20 16:14 11:53 17:54 WBC RBC Hgb Hct MCH RDW Plt Count Lymph % (Auto) [place] % (Auto) [place] # Baso # Seg Neutrophils % Seg Neuts % (Manual) Lymphocytes % (Manual) Monocytes % (Manual) Seg Neutrophils # Seg Neutrophils # Man Lymphocytes # (Manual) Monocytes # (Manual) Eosinophils # (Manual) Basophils # (Manual) PT INR APTT ABG pH ABG pO2 ABG HCO3 ABG O2 Saturation ABG Base Excess ABG Hemoglobin Oxyhemoglobin Sodium Potassium Chloride Carbon Dioxide BUN Creatinine Glucose POC Glucose 123 H 134 H 119 H Lactic Acid Calcium Ionized Calcium Phosphorus Magnesium Total Bilirubin AST ALT Alkaline Phosphatase Ammonia Total Creatine Kinase CK-MB (CK-2) CK-MB (CK-2) Rel Index Total Protein Albumin Urine WBC (Auto) Vancomycin Trough Salicylates Acetaminophen Plasma/Serum Alcohol Crossmatch 02/27/20 02/28/20 02/28/20 23:51 03:40 03:40 WBC RBC 3.58 L Hgb Hct MCH RDW Plt Count 575 H Lymph % (Auto) [place] % (Auto) 9.4 H [place] # 1.0 H Baso # Seg Neutrophils % Seg Neuts % (Manual) Lymphocytes % (Manual) Monocytes % (Manual) Seg Neutrophils # Seg Neutrophils # Man Lymphocytes # (Manual) Monocytes # (Manual) Eosinophils # (Manual) Basophils # (Manual) PT INR APTT ABG pH ABG pO2 ABG HCO3 ABG O2 Saturation ABG Base Excess ABG Hemoglobin Oxyhemoglobin Sodium Potassium Chloride Carbon Dioxide BUN 23 H Creatinine 0.5 L Glucose 114 H POC Glucose 138 H Lactic Acid Calcium Ionized Calcium Phosphorus Magnesium Total Bilirubin AST ALT Alkaline Phosphatase Ammonia Total Creatine Kinase CK-MB (CK-2) CK-MB (CK-2) Rel Index Total Protein Albumin Urine WBC (Auto) Vancomycin Trough Salicylates Acetaminophen Plasma/Serum Alcohol Crossmatch 02/28/20 02/28/20 02/29/20 12:37 18:38 05:50 WBC RBC Hgb Hct MCH RDW Plt Count Lymph % (Auto) [place] % (Auto) [place] # Baso # Seg Neutrophils % Seg Neuts % (Manual) Lymphocytes % (Manual) Monocytes % (Manual) Seg Neutrophils # Seg Neutrophils # Man Lymphocytes # (Manual) Monocytes # (Manual) Eosinophils # (Manual) Basophils # (Manual) PT INR APTT ABG pH ABG pO2 ABG HCO3 ABG O2 Saturation ABG Base Excess ABG Hemoglobin Oxyhemoglobin Sodium Potassium Chloride Carbon Dioxide BUN Creatinine Glucose POC Glucose 115 H 120 H 114 H Lactic Acid Calcium Ionized Calcium Phosphorus Magnesium Total Bilirubin AST ALT Alkaline Phosphatase Ammonia Total Creatine Kinase CK-MB (CK-2) CK-MB (CK-2) Rel Index Total Protein Albumin Urine WBC (Auto) Vancomycin Trough Salicylates Acetaminophen Plasma/Serum Alcohol Crossmatch 02/29/20 02/29/20 03/01/20 18:53 23:10 06:53 WBC RBC Hgb Hct MCH RDW Plt Count Lymph % (Auto) [place] % (Auto) [place] # Baso # Seg Neutrophils % Seg Neuts % (Manual) Lymphocytes % (Manual) Monocytes % (Manual) Seg Neutrophils # Seg Neutrophils # Man Lymphocytes # (Manual) Monocytes # (Manual) Eosinophils # (Manual) Basophils # (Manual) PT INR APTT ABG pH ABG pO2 ABG HCO3 ABG O2 Saturation ABG Base Excess ABG Hemoglobin Oxyhemoglobin Sodium Potassium Chloride Carbon Dioxide BUN Creatinine Glucose POC Glucose 112 H 147 H 131 H Lactic Acid Calcium Ionized Calcium Phosphorus Magnesium Total Bilirubin AST ALT Alkaline Phosphatase Ammonia Total Creatine Kinase CK-MB (CK-2) CK-MB (CK-2) Rel Index Total Protein Albumin Urine WBC (Auto) Vancomycin Trough Salicylates Acetaminophen Plasma/Serum Alcohol Crossmatch 03/01/20 03/01/20 03/02/20 17:31 18:35 00:10 WBC RBC Hgb Hct MCH RDW Plt Count Lymph % (Auto) [place] % (Auto) [place] # Baso # Seg Neutrophils % Seg Neuts % (Manual) Lymphocytes % (Manual) Monocytes % (Manual) Seg Neutrophils # Seg Neutrophils # Man Lymphocytes # (Manual) Monocytes # (Manual) Eosinophils # (Manual) Basophils # (Manual) PT INR APTT ABG pH ABG pO2 ABG HCO3 ABG O2 Saturation ABG Base Excess ABG Hemoglobin Oxyhemoglobin Sodium Potassium Chloride Carbon Dioxide BUN Creatinine Glucose POC Glucose 61 L 129 H 117 H Lactic Acid Calcium Ionized Calcium Phosphorus Magnesium Total Bilirubin AST ALT Alkaline Phosphatase Ammonia Total Creatine Kinase CK-MB (CK-2) CK-MB (CK-2) Rel Index Total Protein Albumin Urine WBC (Auto) Vancomycin Trough Salicylates Acetaminophen Plasma/Serum Alcohol Crossmatch 03/02/20 03/02/20 03/02/20 06:56 12:02 18:42 WBC RBC Hgb Hct MCH RDW Plt Count Lymph % (Auto) [place] % (Auto) [place] # Baso # Seg Neutrophils % Seg Neuts % (Manual) Lymphocytes % (Manual) Monocytes % (Manual) Seg Neutrophils # Seg Neutrophils # Man Lymphocytes # (Manual) Monocytes # (Manual) Eosinophils # (Manual) Basophils # (Manual) PT INR APTT ABG pH ABG pO2 ABG HCO3 ABG O2 Saturation ABG Base Excess ABG Hemoglobin Oxyhemoglobin Sodium Potassium Chloride Carbon Dioxide BUN Creatinine Glucose POC Glucose 125 H 111 H 126 H Lactic Acid Calcium Ionized Calcium Phosphorus Magnesium Total Bilirubin AST ALT Alkaline Phosphatase Ammonia Total Creatine Kinase CK-MB (CK-2) CK-MB (CK-2) Rel Index Total Protein Albumin Urine WBC (Auto) Vancomycin Trough Salicylates Acetaminophen Plasma/Serum Alcohol Crossmatch 03/03/20 03/03/20 03/03/20 00:18 06:11 11:50 WBC RBC Hgb Hct MCH RDW Plt Count Lymph % (Auto) [place] % (Auto) [place] # Baso # Seg Neutrophils % Seg Neuts % (Manual) Lymphocytes % (Manual) Monocytes % (Manual) Seg Neutrophils # Seg Neutrophils # Man Lymphocytes # (Manual) Monocytes # (Manual) Eosinophils # (Manual) Basophils # (Manual) PT INR APTT ABG pH ABG pO2 ABG HCO3 ABG O2 Saturation ABG Base Excess ABG Hemoglobin Oxyhemoglobin Sodium Potassium Chloride Carbon Dioxide BUN Creatinine Glucose POC Glucose 139 H 155 H 118 H Lactic Acid Calcium Ionized Calcium Phosphorus Magnesium Total Bilirubin AST ALT Alkaline Phosphatase Ammonia Total Creatine Kinase CK-MB (CK-2) CK-MB (CK-2) Rel Index Total Protein Albumin Urine WBC (Auto) Vancomycin Trough Salicylates Acetaminophen Plasma/Serum Alcohol Crossmatch 03/03/20 03/03/20 03/04/20 18:09 23:46 05:37 WBC RBC Hgb Hct MCH RDW Plt Count Lymph % (Auto) [place] % (Auto) [place] # Baso # Seg Neutrophils % Seg Neuts % (Manual) Lymphocytes % (Manual) Monocytes % (Manual) Seg Neutrophils # Seg Neutrophils # Man Lymphocytes # (Manual) Monocytes # (Manual) Eosinophils # (Manual) Basophils # (Manual) PT INR APTT ABG pH ABG pO2 ABG HCO3 ABG O2 Saturation ABG Base Excess ABG Hemoglobin Oxyhemoglobin Sodium Potassium Chloride Carbon Dioxide BUN Creatinine Glucose POC Glucose 109 H 132 H 111 H Lactic Acid Calcium Ionized Calcium Phosphorus Magnesium Total Bilirubin AST ALT Alkaline Phosphatase Ammonia Total Creatine Kinase CK-MB (CK-2) CK-MB (CK-2) Rel Index Total Protein Albumin Urine WBC (Auto) Vancomycin Trough Salicylates Acetaminophen Plasma/Serum Alcohol Crossmatch 03/04/20 03/04/20 03/05/20 11:38 17:54 00:14 WBC RBC Hgb Hct MCH RDW Plt Count Lymph % (Auto) [place] % (Auto) [place] # Baso # Seg Neutrophils % Seg Neuts % (Manual) Lymphocytes % (Manual) Monocytes % (Manual) Seg Neutrophils # Seg Neutrophils # Man Lymphocytes # (Manual) Monocytes # (Manual) Eosinophils # (Manual) Basophils # (Manual) PT INR APTT ABG pH ABG pO2 ABG HCO3 ABG O2 Saturation ABG Base Excess ABG Hemoglobin Oxyhemoglobin Sodium Potassium Chloride Carbon Dioxide BUN Creatinine Glucose POC Glucose 138 H 118 H 134 H Lactic Acid Calcium Ionized Calcium Phosphorus Magnesium Total Bilirubin AST ALT Alkaline Phosphatase Ammonia Total Creatine Kinase CK-MB (CK-2) CK-MB (CK-2) Rel Index Total Protein Albumin Urine WBC (Auto) Vancomycin Trough Salicylates Acetaminophen Plasma/Serum Alcohol Crossmatch 03/06/20 03/06/20 03/06/20 03:37 03:37 06:29 WBC RBC Hgb Hct MCH RDW Plt Count 550 H Lymph % (Auto) [place] % (Auto) 9.1 H [place] # Baso # Seg Neutrophils % Seg Neuts % (Manual) Lymphocytes % (Manual) Monocytes % (Manual) Seg Neutrophils # Seg Neutrophils # Man Lymphocytes # (Manual) Monocytes # (Manual) Eosinophils # (Manual) Basophils # (Manual) PT INR APTT ABG pH ABG pO2 ABG HCO3 ABG O2 Saturation ABG Base Excess ABG Hemoglobin Oxyhemoglobin Sodium Potassium Chloride Carbon Dioxide BUN 26 H Creatinine 0.5 L Glucose POC Glucose 128 H Lactic Acid Calcium 10.4 H Ionized Calcium Phosphorus Magnesium Total Bilirubin AST ALT Alkaline Phosphatase Ammonia Total Creatine Kinase CK-MB (CK-2) CK-MB (CK-2) Rel Index Total Protein Albumin Urine WBC (Auto) Vancomycin Trough Salicylates Acetaminophen Plasma/Serum Alcohol Crossmatch 03/06/20 03/07/20 03/07/20 17:47 06:37 12:37 WBC RBC Hgb Hct MCH RDW Plt Count Lymph % (Auto) [place] % (Auto) [place] # Baso # Seg Neutrophils % Seg Neuts % (Manual) Lymphocytes % (Manual) Monocytes % (Manual) Seg Neutrophils # Seg Neutrophils # Man Lymphocytes # (Manual) Monocytes # (Manual) Eosinophils # (Manual) Basophils # (Manual) PT INR APTT ABG pH ABG pO2 ABG HCO3 ABG O2 Saturation ABG Base Excess ABG Hemoglobin Oxyhemoglobin Sodium Potassium Chloride Carbon Dioxide BUN Creatinine Glucose POC Glucose 120 H 113 H 118 H Lactic Acid Calcium Ionized Calcium Phosphorus Magnesium Total Bilirubin AST ALT Alkaline Phosphatase Ammonia Total Creatine Kinase CK-MB (CK-2) CK-MB (CK-2) Rel Index Total Protein Albumin Urine WBC (Auto) Vancomycin Trough Salicylates Acetaminophen Plasma/Serum Alcohol Crossmatch 03/07/20 03/08/20 03/08/20 16:41 00:55 06:25 WBC RBC Hgb Hct MCH RDW Plt Count Lymph % (Auto) [place] % (Auto) [place] # Baso # Seg Neutrophils % Seg Neuts % (Manual) Lymphocytes % (Manual) Monocytes % (Manual) Seg Neutrophils # Seg Neutrophils # Man Lymphocytes # (Manual) Monocytes # (Manual) Eosinophils # (Manual) Basophils # (Manual) PT INR APTT ABG pH ABG pO2 ABG HCO3 ABG O2 Saturation ABG Base Excess ABG Hemoglobin Oxyhemoglobin Sodium Potassium Chloride Carbon Dioxide BUN Creatinine Glucose POC Glucose 108 H 139 H 127 H Lactic Acid Calcium Ionized Calcium Phosphorus Magnesium Total Bilirubin AST ALT Alkaline Phosphatase Ammonia Total Creatine Kinase CK-MB (CK-2) CK-MB (CK-2) Rel Index Total Protein Albumin Urine WBC (Auto) Vancomycin Trough Salicylates Acetaminophen Plasma/Serum Alcohol Crossmatch 03/08/20 03/08/20 03/08/20 12:49 13:25 17:13 WBC RBC Hgb Hct MCH RDW Plt Count Lymph % (Auto) [place] % (Auto) [place] # Baso # Seg Neutrophils % Seg Neuts % (Manual) Lymphocytes % (Manual) Monocytes % (Manual) Seg Neutrophils # Seg Neutrophils # Man Lymphocytes # (Manual) Monocytes # (Manual) Eosinophils # (Manual) Basophils # (Manual) PT INR APTT ABG pH ABG pO2 71.1 L ABG HCO3 26.2 H ABG O2 Saturation ABG Base Excess ABG Hemoglobin 8.2 L Oxyhemoglobin 94.8 L Sodium Potassium Chloride Carbon Dioxide BUN Creatinine Glucose POC Glucose 127 H 147 H Lactic Acid Calcium Ionized Calcium Phosphorus Magnesium Total Bilirubin AST ALT Alkaline Phosphatase Ammonia Total Creatine Kinase CK-MB (CK-2) CK-MB (CK-2) Rel Index Total Protein Albumin Urine WBC (Auto) Vancomycin Trough Salicylates Acetaminophen Plasma/Serum Alcohol Crossmatch 03/09/20 03/09/20 03/09/20 06:28 08:36 23:58 WBC RBC Hgb Hct MCH RDW Plt Count Lymph % (Auto) [place] % (Auto) [place] # Baso # Seg Neutrophils % Seg Neuts % (Manual) Lymphocytes % (Manual) Monocytes % (Manual) Seg Neutrophils # Seg Neutrophils # Man Lymphocytes # (Manual) Monocytes # (Manual) Eosinophils # (Manual) Basophils # (Manual) PT INR APTT ABG pH ABG pO2 ABG HCO3 ABG O2 Saturation ABG Base Excess ABG Hemoglobin Oxyhemoglobin Sodium Potassium Chloride Carbon Dioxide BUN Creatinine Glucose POC Glucose 139 H 167 H 122 H Lactic Acid Calcium Ionized Calcium Phosphorus Magnesium Total Bilirubin AST ALT Alkaline Phosphatase Ammonia Total Creatine Kinase CK-MB (CK-2) CK-MB (CK-2) Rel Index Total Protein Albumin Urine WBC (Auto) Vancomycin Trough Salicylates Acetaminophen Plasma/Serum Alcohol Crossmatch 03/10/20 03/10/20 03/11/20 06:32 23:27 06:23 WBC RBC Hgb Hct MCH RDW Plt Count Lymph % (Auto) [place] % (Auto) [place] # Baso # Seg Neutrophils % Seg Neuts % (Manual) Lymphocytes % (Manual) Monocytes % (Manual) Seg Neutrophils # Seg Neutrophils # Man Lymphocytes # (Manual) Monocytes # (Manual) Eosinophils # (Manual) Basophils # (Manual) PT INR APTT ABG pH ABG pO2 ABG HCO3 ABG O2 Saturation ABG Base Excess ABG Hemoglobin Oxyhemoglobin Sodium Potassium Chloride Carbon Dioxide BUN Creatinine Glucose POC Glucose 165 H 115 H 139 H Lactic Acid Calcium Ionized Calcium Phosphorus Magnesium Total Bilirubin AST ALT Alkaline Phosphatase Ammonia Total Creatine Kinase CK-MB (CK-2) CK-MB (CK-2) Rel Index Total Protein Albumin Urine WBC (Auto) Vancomycin Trough Salicylates Acetaminophen Plasma/Serum Alcohol Crossmatch 03/11/20 03/11/20 03/12/20 12:29 18:02 04:53 WBC RBC Hgb Hct MCH RDW Plt Count 625 H Lymph % (Auto) [place] % (Auto) [place] # Baso # Seg Neutrophils % Seg Neuts % (Manual) Lymphocytes % (Manual) Monocytes % (Manual) Seg Neutrophils # Seg Neutrophils # Man Lymphocytes # (Manual) Monocytes # (Manual) Eosinophils # (Manual) Basophils # (Manual) PT INR APTT ABG pH ABG pO2 ABG HCO3 ABG O2 Saturation ABG Base Excess ABG Hemoglobin Oxyhemoglobin Sodium Potassium Chloride Carbon Dioxide BUN Creatinine Glucose POC Glucose 164 H 113 H Lactic Acid Calcium Ionized Calcium Phosphorus Magnesium Total Bilirubin AST ALT Alkaline Phosphatase Ammonia Total Creatine Kinase CK-MB (CK-2) CK-MB (CK-2) Rel Index Total Protein Albumin Urine WBC (Auto) Vancomycin Trough Salicylates Acetaminophen Plasma/Serum Alcohol Crossmatch 03/12/20 03/12/20 03/12/20 04:53 06:26 12:38 WBC RBC Hgb Hct MCH RDW Plt Count Lymph % (Auto) [place] % (Auto) [place] # Baso # Seg Neutrophils % Seg Neuts % (Manual) Lymphocytes % (Manual) Monocytes % (Manual) Seg Neutrophils # Seg Neutrophils # Man Lymphocytes # (Manual) Monocytes # (Manual) Eosinophils # (Manual) Basophils # (Manual) PT INR APTT ABG pH ABG pO2 ABG HCO3 ABG O2 Saturation ABG Base Excess ABG Hemoglobin Oxyhemoglobin Sodium Potassium 5.3 H Chloride Carbon Dioxide BUN 34 H Creatinine Glucose 159 H POC Glucose 149 H 130 H Lactic Acid Calcium 10.7 H Ionized Calcium Phosphorus Magnesium Total Bilirubin AST ALT Alkaline Phosphatase Ammonia Total Creatine Kinase CK-MB (CK-2) CK-MB (CK-2) Rel Index Total Protein Albumin Urine WBC (Auto) Vancomycin Trough Salicylates Acetaminophen Plasma/Serum Alcohol Crossmatch 03/13/20 03/13/20 03/13/20 03:50 06:12 18:11 WBC RBC Hgb Hct MCH RDW Plt Count Lymph % (Auto) [place] % (Auto) [place] # Baso # Seg Neutrophils % Seg Neuts % (Manual) Lymphocytes % (Manual) Monocytes % (Manual) Seg Neutrophils # Seg Neutrophils # Man Lymphocytes # (Manual) Monocytes # (Manual) Eosinophils # (Manual) Basophils # (Manual) PT INR APTT ABG pH ABG pO2 ABG HCO3 ABG O2 Saturation ABG Base Excess ABG Hemoglobin Oxyhemoglobin Sodium Potassium Chloride Carbon Dioxide 20 L BUN 30 H Creatinine 0.6 L Glucose 153 H POC Glucose 124 H 111 H Lactic Acid Calcium Ionized Calcium Phosphorus Magnesium Total Bilirubin AST ALT Alkaline Phosphatase Ammonia Total Creatine Kinase CK-MB (CK-2) CK-MB (CK-2) Rel Index Total Protein Albumin Urine WBC (Auto) Vancomycin Trough Salicylates Acetaminophen Plasma/Serum Alcohol Crossmatch 03/14/20 03/14/20 03/15/20 12:01 15:40 00:02 WBC RBC Hgb Hct MCH RDW Plt Count Lymph % (Auto) [place] % (Auto) [place] # Baso # Seg Neutrophils % Seg Neuts % (Manual) Lymphocytes % (Manual) Monocytes % (Manual) Seg Neutrophils # Seg Neutrophils # Man Lymphocytes # (Manual) Monocytes # (Manual) Eosinophils # (Manual) Basophils # (Manual) PT INR APTT ABG pH ABG pO2 ABG HCO3 ABG O2 Saturation ABG Base Excess ABG Hemoglobin Oxyhemoglobin Sodium Potassium Chloride Carbon Dioxide BUN Creatinine Glucose POC Glucose 116 H 125 H 143 H Lactic Acid Calcium Ionized Calcium Phosphorus Magnesium Total Bilirubin AST ALT Alkaline Phosphatase Ammonia Total Creatine Kinase CK-MB (CK-2) CK-MB (CK-2) Rel Index Total Protein Albumin Urine WBC (Auto) Vancomycin Trough Salicylates Acetaminophen Plasma/Serum Alcohol Crossmatch 03/15/20 03/15/20 03/16/20 12:03 18:14 12:14 WBC RBC Hgb Hct MCH RDW Plt Count Lymph % (Auto) [place] % (Auto) [place] # Baso # Seg Neutrophils % Seg Neuts % (Manual) Lymphocytes % (Manual) Monocytes % (Manual) Seg Neutrophils # Seg Neutrophils # Man Lymphocytes # (Manual) Monocytes # (Manual) Eosinophils # (Manual) Basophils # (Manual) PT INR APTT ABG pH ABG pO2 ABG HCO3 ABG O2 Saturation ABG Base Excess ABG Hemoglobin Oxyhemoglobin Sodium Potassium Chloride Carbon Dioxide BUN Creatinine Glucose POC Glucose 106 H 107 H 107 H Lactic Acid Calcium Ionized Calcium Phosphorus Magnesium Total Bilirubin AST ALT Alkaline Phosphatase Ammonia Total Creatine Kinase CK-MB (CK-2) CK-MB (CK-2) Rel Index Total Protein Albumin Urine WBC (Auto) Vancomycin Trough Salicylates Acetaminophen Plasma/Serum Alcohol Crossmatch 03/16/20 03/17/20 03/17/20 18:30 05:44 12:09 WBC RBC Hgb Hct MCH RDW Plt Count Lymph % (Auto) [place] % (Auto) [place] # Baso # Seg Neutrophils % Seg Neuts % (Manual) Lymphocytes % (Manual) Monocytes % (Manual) Seg Neutrophils # Seg Neutrophils # Man Lymphocytes # (Manual) Monocytes # (Manual) Eosinophils # (Manual) Basophils # (Manual) PT INR APTT ABG pH ABG pO2 ABG HCO3 ABG O2 Saturation ABG Base Excess ABG Hemoglobin Oxyhemoglobin Sodium Potassium Chloride Carbon Dioxide BUN Creatinine Glucose POC Glucose 128 H 114 H 120 H Lactic Acid Calcium Ionized Calcium Phosphorus Magnesium Total Bilirubin AST ALT Alkaline Phosphatase Ammonia Total Creatine Kinase CK-MB (CK-2) CK-MB (CK-2) Rel Index Total Protein Albumin Urine WBC (Auto) Vancomycin Trough Salicylates Acetaminophen Plasma/Serum Alcohol Crossmatch 03/17/20 03/17/20 03/18/20 16:51 23:36 07:07 WBC RBC Hgb Hct MCH RDW Plt Count Lymph % (Auto) [place] % (Auto) [place] # Baso # Seg Neutrophils % Seg Neuts % (Manual) Lymphocytes % (Manual) Monocytes % (Manual) Seg Neutrophils # Seg Neutrophils # Man Lymphocytes # (Manual) Monocytes # (Manual) Eosinophils # (Manual) Basophils # (Manual) PT INR APTT ABG pH ABG pO2 ABG HCO3 ABG O2 Saturation ABG Base Excess ABG Hemoglobin Oxyhemoglobin Sodium Potassium Chloride Carbon Dioxide BUN Creatinine Glucose POC Glucose 108 H 145 H 116 H Lactic Acid Calcium Ionized Calcium Phosphorus Magnesium Total Bilirubin AST ALT Alkaline Phosphatase Ammonia Total Creatine Kinase CK-MB (CK-2) CK-MB (CK-2) Rel Index Total Protein Albumin Urine WBC (Auto) Vancomycin Trough Salicylates Acetaminophen Plasma/Serum Alcohol Crossmatch 03/18/20 03/19/20 03/19/20 18:11 06:09 11:49 WBC RBC Hgb Hct MCH RDW Plt Count Lymph % (Auto) [place] % (Auto) [place] # Baso # Seg Neutrophils % Seg Neuts % (Manual) Lymphocytes % (Manual) Monocytes % (Manual) Seg Neutrophils # Seg Neutrophils # Man Lymphocytes # (Manual) Monocytes # (Manual) Eosinophils # (Manual) Basophils # (Manual) PT INR APTT ABG pH ABG pO2 ABG HCO3 ABG O2 Saturation ABG Base Excess ABG Hemoglobin Oxyhemoglobin Sodium Potassium Chloride Carbon Dioxide BUN Creatinine Glucose POC Glucose 106 H 160 H 145 H Lactic Acid Calcium Ionized Calcium Phosphorus Magnesium Total Bilirubin AST ALT Alkaline Phosphatase Ammonia Total Creatine Kinase CK-MB (CK-2) CK-MB (CK-2) Rel Index Total Protein Albumin Urine WBC (Auto) Vancomycin Trough Salicylates Acetaminophen Plasma/Serum Alcohol Crossmatch 03/20/20 03/20/20 03/20/20 01:01 06:14 12:52 WBC RBC Hgb Hct MCH RDW Plt Count Lymph % (Auto) [place] % (Auto) [place] # Baso # Seg Neutrophils % Seg Neuts % (Manual) Lymphocytes % (Manual) Monocytes % (Manual) Seg Neutrophils # Seg Neutrophils # Man Lymphocytes # (Manual) Monocytes # (Manual) Eosinophils # (Manual) Basophils # (Manual) PT INR APTT ABG pH ABG pO2 ABG HCO3 ABG O2 Saturation ABG Base Excess ABG Hemoglobin Oxyhemoglobin Sodium Potassium Chloride Carbon Dioxide BUN Creatinine Glucose POC Glucose 109 H 122 H 106 H Lactic Acid Calcium Ionized Calcium Phosphorus Magnesium Total Bilirubin AST ALT Alkaline Phosphatase Ammonia Total Creatine Kinase CK-MB (CK-2) CK-MB (CK-2) Rel Index Total Protein Albumin Urine WBC (Auto) Vancomycin Trough Salicylates Acetaminophen Plasma/Serum Alcohol Crossmatch 03/20/20 03/21/20 03/21/20 18:56 00:18 05:21 WBC RBC Hgb Hct MCH RDW Plt Count Lymph % (Auto) [place] % (Auto) [place] # Baso # Seg Neutrophils % Seg Neuts % (Manual) Lymphocytes % (Manual) Monocytes % (Manual) Seg Neutrophils # Seg Neutrophils # Man Lymphocytes # (Manual) Monocytes # (Manual) Eosinophils # (Manual) Basophils # (Manual) PT INR APTT ABG pH ABG pO2 ABG HCO3 ABG O2 Saturation ABG Base Excess ABG Hemoglobin Oxyhemoglobin Sodium Potassium Chloride Carbon Dioxide BUN Creatinine Glucose POC Glucose 110 H 140 H 112 H Lactic Acid Calcium Ionized Calcium Phosphorus Magnesium Total Bilirubin AST ALT Alkaline Phosphatase Ammonia Total Creatine Kinase CK-MB (CK-2) CK-MB (CK-2) Rel Index Total Protein Albumin Urine WBC (Auto) Vancomycin Trough Salicylates Acetaminophen Plasma/Serum Alcohol Crossmatch 03/21/20 03/22/20 03/22/20 17:15 01:14 12:08 WBC RBC Hgb Hct MCH RDW Plt Count Lymph % (Auto) [place] % (Auto) [place] # Baso # Seg Neutrophils % Seg Neuts % (Manual) Lymphocytes % (Manual) Monocytes % (Manual) Seg Neutrophils # Seg Neutrophils # Man Lymphocytes # (Manual) Monocytes # (Manual) Eosinophils # (Manual) Basophils # (Manual) PT INR APTT ABG pH ABG pO2 ABG HCO3 ABG O2 Saturation ABG Base Excess ABG Hemoglobin Oxyhemoglobin Sodium Potassium Chloride Carbon Dioxide BUN Creatinine Glucose POC Glucose 158 H 157 H 133 H Lactic Acid Calcium Ionized Calcium Phosphorus Magnesium Total Bilirubin AST ALT Alkaline Phosphatase Ammonia Total Creatine Kinase CK-MB (CK-2) CK-MB (CK-2) Rel Index Total Protein Albumin Urine WBC (Auto) Vancomycin Trough Salicylates Acetaminophen Plasma/Serum Alcohol Crossmatch 03/22/20 03/23/20 03/23/20 16:48 01:00 06:54 WBC RBC Hgb Hct MCH RDW Plt Count Lymph % (Auto) [place] % (Auto) [place] # Baso # Seg Neutrophils % Seg Neuts % (Manual) Lymphocytes % (Manual) Monocytes % (Manual) Seg Neutrophils # Seg Neutrophils # Man Lymphocytes # (Manual) Monocytes # (Manual) Eosinophils # (Manual) Basophils # (Manual) PT INR APTT ABG pH ABG pO2 ABG HCO3 ABG O2 Saturation ABG Base Excess ABG Hemoglobin Oxyhemoglobin Sodium Potassium Chloride Carbon Dioxide BUN Creatinine Glucose POC Glucose 111 H 153 H 129 H Lactic Acid Calcium Ionized Calcium Phosphorus Magnesium Total Bilirubin AST ALT Alkaline Phosphatase Ammonia Total Creatine Kinase CK-MB (CK-2) CK-MB (CK-2) Rel Index Total Protein Albumin Urine WBC (Auto) Vancomycin Trough Salicylates Acetaminophen Plasma/Serum Alcohol Crossmatch 03/23/20 03/23/20 03/23/20 12:08 15:54 23:20 WBC RBC Hgb Hct MCH RDW Plt Count Lymph % (Auto) [place] % (Auto) [place] # Baso # Seg Neutrophils % Seg Neuts % (Manual) Lymphocytes % (Manual) Monocytes % (Manual) Seg Neutrophils # Seg Neutrophils # Man Lymphocytes # (Manual) Monocytes # (Manual) Eosinophils # (Manual) Basophils # (Manual) PT INR APTT ABG pH ABG pO2 ABG HCO3 ABG O2 Saturation ABG Base Excess ABG Hemoglobin Oxyhemoglobin Sodium Potassium Chloride Carbon Dioxide BUN Creatinine Glucose POC Glucose 126 H 142 H 115 H Lactic Acid Calcium Ionized Calcium Phosphorus Magnesium Total Bilirubin AST ALT Alkaline Phosphatase Ammonia Total Creatine Kinase CK-MB (CK-2) CK-MB (CK-2) Rel Index Total Protein Albumin Urine WBC (Auto) Vancomycin Trough Salicylates Acetaminophen Plasma/Serum Alcohol Crossmatch 03/24/20 03/24/20 03/24/20 06:33 12:19 16:46 WBC RBC Hgb Hct MCH RDW Plt Count Lymph % (Auto) [place] % (Auto) [place] # Baso # Seg Neutrophils % Seg Neuts % (Manual) Lymphocytes % (Manual) Monocytes % (Manual) Seg Neutrophils # Seg Neutrophils # Man Lymphocytes # (Manual) Monocytes # (Manual) Eosinophils # (Manual) Basophils # (Manual) PT INR APTT ABG pH ABG pO2 ABG HCO3 ABG O2 Saturation ABG Base Excess ABG Hemoglobin Oxyhemoglobin Sodium Potassium Chloride Carbon Dioxide BUN Creatinine Glucose POC Glucose 122 H 156 H 140 H Lactic Acid Calcium Ionized Calcium Phosphorus Magnesium Total Bilirubin AST ALT Alkaline Phosphatase Ammonia Total Creatine Kinase CK-MB (CK-2) CK-MB (CK-2) Rel Index Total Protein Albumin Urine WBC (Auto) Vancomycin Trough Salicylates Acetaminophen Plasma/Serum Alcohol Crossmatch 03/24/20 03/25/20 03/25/20 23:56 04:28 06:45 WBC RBC Hgb Hct MCH RDW Plt Count Lymph % (Auto) [place] % (Auto) [place] # Baso # Seg Neutrophils % Seg Neuts % (Manual) Lymphocytes % (Manual) Monocytes % (Manual) Seg Neutrophils # Seg Neutrophils # Man Lymphocytes # (Manual) Monocytes # (Manual) Eosinophils # (Manual) Basophils # (Manual) PT INR APTT ABG pH ABG pO2 ABG HCO3 ABG O2 Saturation ABG Base Excess ABG Hemoglobin Oxyhemoglobin Sodium Potassium Chloride Carbon Dioxide BUN 23 H Creatinine 0.5 L Glucose 121 H POC Glucose 127 H 130 H Lactic Acid Calcium 10.3 H Ionized Calcium Phosphorus Magnesium Total Bilirubin AST ALT Alkaline Phosphatase Ammonia Total Creatine Kinase CK-MB (CK-2) CK-MB (CK-2) Rel Index Total Protein Albumin Urine WBC (Auto) Vancomycin Trough Salicylates Acetaminophen Plasma/Serum Alcohol Crossmatch 03/25/20 03/25/20 03/26/20 12:50 15:57 05:39 WBC RBC Hgb Hct MCH RDW Plt Count Lymph % (Auto) [place] % (Auto) [place] # Baso # Seg Neutrophils % Seg Neuts % (Manual) Lymphocytes % (Manual) Monocytes % (Manual) Seg Neutrophils # Seg Neutrophils # Man Lymphocytes # (Manual) Monocytes # (Manual) Eosinophils # (Manual) Basophils # (Manual) PT INR APTT ABG pH ABG pO2 ABG HCO3 ABG O2 Saturation ABG Base Excess ABG Hemoglobin Oxyhemoglobin Sodium Potassium Chloride Carbon Dioxide BUN Creatinine Glucose POC Glucose 145 H 118 H 136 H Lactic Acid Calcium Ionized Calcium Phosphorus Magnesium Total Bilirubin AST ALT Alkaline Phosphatase Ammonia Total Creatine Kinase CK-MB (CK-2) CK-MB (CK-2) Rel Index Total Protein Albumin Urine WBC (Auto) Vancomycin Trough Salicylates Acetaminophen Plasma/Serum Alcohol Crossmatch 03/26/20 03/26/20 03/27/20 16:04 23:17 11:31 WBC RBC Hgb Hct MCH RDW Plt Count Lymph % (Auto) [place] % (Auto) [place] # Baso # Seg Neutrophils % Seg Neuts % (Manual) Lymphocytes % (Manual) Monocytes % (Manual) Seg Neutrophils # Seg Neutrophils # Man Lymphocytes # (Manual) Monocytes # (Manual) Eosinophils # (Manual) Basophils # (Manual) PT INR APTT ABG pH ABG pO2 ABG HCO3 ABG O2 Saturation ABG Base Excess ABG Hemoglobin Oxyhemoglobin Sodium Potassium Chloride Carbon Dioxide BUN Creatinine Glucose POC Glucose 157 H 157 H 121 H Lactic Acid Calcium Ionized Calcium Phosphorus Magnesium Total Bilirubin AST ALT Alkaline Phosphatase Ammonia Total Creatine Kinase CK-MB (CK-2) CK-MB (CK-2) Rel Index Total Protein Albumin Urine WBC (Auto) Vancomycin Trough Salicylates Acetaminophen Plasma/Serum Alcohol Crossmatch 03/27/20 03/28/20 03/28/20 16:33 01:55 12:12 WBC RBC Hgb Hct MCH RDW Plt Count Lymph % (Auto) [place] % (Auto) [place] # Baso # Seg Neutrophils % Seg Neuts % (Manual) Lymphocytes % (Manual) Monocytes % (Manual) Seg Neutrophils # Seg Neutrophils # Man Lymphocytes # (Manual) Monocytes # (Manual) Eosinophils # (Manual) Basophils # (Manual) PT INR APTT ABG pH ABG pO2 ABG HCO3 ABG O2 Saturation ABG Base Excess ABG Hemoglobin Oxyhemoglobin Sodium Potassium Chloride Carbon Dioxide BUN Creatinine Glucose POC Glucose 126 H 106 H 116 H Lactic Acid Calcium Ionized Calcium Phosphorus Magnesium Total Bilirubin AST ALT Alkaline Phosphatase Ammonia Total Creatine Kinase CK-MB (CK-2) CK-MB (CK-2) Rel Index Total Protein Albumin Urine WBC (Auto) Vancomycin Trough Salicylates Acetaminophen Plasma/Serum Alcohol Crossmatch 03/28/20 03/29/20 03/29/20 17:57 06:41 16:48 WBC RBC Hgb Hct MCH RDW Plt Count Lymph % (Auto) [place] % (Auto) [place] # Baso # Seg Neutrophils % Seg Neuts % (Manual) Lymphocytes % (Manual) Monocytes % (Manual) Seg Neutrophils # Seg Neutrophils # Man Lymphocytes # (Manual) Monocytes # (Manual) Eosinophils # (Manual) Basophils # (Manual) PT INR APTT ABG pH ABG pO2 ABG HCO3 ABG O2 Saturation ABG Base Excess ABG Hemoglobin Oxyhemoglobin Sodium Potassium Chloride Carbon Dioxide BUN Creatinine Glucose POC Glucose 138 H 154 H 136 H Lactic Acid Calcium Ionized Calcium Phosphorus Magnesium Total Bilirubin AST ALT Alkaline Phosphatase Ammonia Total Creatine Kinase CK-MB (CK-2) CK-MB (CK-2) Rel Index Total Protein Albumin Urine WBC (Auto) Vancomycin Trough Salicylates Acetaminophen Plasma/Serum Alcohol Crossmatch 07/09/0703/30/20 03/31/20 05:44 12:16 16:37 WBC RBC Hgb Hct MCH RDW Plt Count Lymph % (Auto) [place] % (Auto) [place] # Baso # Seg Neutrophils % Seg Neuts % (Manual) Lymphocytes % (Manual) Monocytes % (Manual) Seg Neutrophils # Seg Neutrophils # Man Lymphocytes # (Manual) Monocytes # (Manual) Eosinophils # (Manual) Basophils # (Manual) PT INR APTT ABG pH ABG pO2 ABG HCO3 ABG O2 Saturation ABG Base Excess ABG Hemoglobin Oxyhemoglobin Sodium Potassium Chloride Carbon Dioxide BUN Creatinine Glucose POC Glucose 110 H 122 H 128 H Lactic Acid Calcium Ionized Calcium Phosphorus Magnesium Total Bilirubin AST ALT Alkaline Phosphatase Ammonia Total Creatine Kinase CK-MB (CK-2) CK-MB (CK-2) Rel Index Total Protein Albumin Urine WBC (Auto) Vancomycin Trough Salicylates Acetaminophen Plasma/Serum Alcohol Crossmatch 04/01/20 04/02/20 04/02/20 22:51 11:38 16:35 WBC RBC Hgb Hct MCH RDW Plt Count Lymph % (Auto) [place] % (Auto) [place] # Baso # Seg Neutrophils % Seg Neuts % (Manual) Lymphocytes % (Manual) Monocytes % (Manual) Seg Neutrophils # Seg Neutrophils # Man Lymphocytes # (Manual) Monocytes # (Manual) Eosinophils # (Manual) Basophils # (Manual) PT INR APTT ABG pH ABG pO2 ABG HCO3 ABG O2 Saturation ABG Base Excess ABG Hemoglobin Oxyhemoglobin Sodium Potassium Chloride Carbon Dioxide BUN Creatinine Glucose POC Glucose 132 H 128 H 108 H Lactic Acid Calcium Ionized Calcium Phosphorus Magnesium Total Bilirubin AST ALT Alkaline Phosphatase Ammonia Total Creatine Kinase CK-MB (CK-2) CK-MB (CK-2) Rel Index Total Protein Albumin Urine WBC (Auto) Vancomycin Trough Salicylates Acetaminophen Plasma/Serum Alcohol Crossmatch 04/05/20 04/11/20 04/11/20 00:16 12:27 15:54 WBC RBC Hgb Hct MCH RDW Plt Count Lymph % (Auto) [place] % (Auto) [place] # Baso # Seg Neutrophils % Seg Neuts % (Manual) Lymphocytes % (Manual) Monocytes % (Manual) Seg Neutrophils # Seg Neutrophils # Man Lymphocytes # (Manual) Monocytes # (Manual) Eosinophils # (Manual) Basophils # (Manual) PT INR APTT ABG pH ABG pO2 ABG HCO3 ABG O2 Saturation ABG Base Excess ABG Hemoglobin Oxyhemoglobin Sodium Potassium Chloride Carbon Dioxide BUN Creatinine Glucose POC Glucose 117 H 123 H 114 H Lactic Acid Calcium Ionized Calcium Phosphorus Magnesium Total Bilirubin AST ALT Alkaline Phosphatase Ammonia Total Creatine Kinase CK-MB (CK-2) CK-MB (CK-2) Rel Index Total Protein Albumin Urine WBC (Auto) Vancomycin Trough Salicylates Acetaminophen Plasma/Serum Alcohol Crossmatch 04/11/20 04/13/20 04/16/20 21:55 16:39 05:00 WBC RBC Hgb Hct MCH RDW Plt Count Lymph % (Auto) [place] % (Auto) [place] # Baso # Seg Neutrophils % Seg Neuts % (Manual) Lymphocytes % (Manual) Monocytes % (Manual) Seg Neutrophils # Seg Neutrophils # Man Lymphocytes # (Manual) Monocytes # (Manual) Eosinophils # (Manual) Basophils # (Manual) PT INR APTT ABG pH ABG pO2 ABG HCO3 ABG O2 Saturation ABG Base Excess ABG Hemoglobin Oxyhemoglobin Sodium Potassium 3.2 L Chloride 107.4 H Carbon Dioxide BUN Creatinine 0.4 L Glucose POC Glucose 126 H 112 H Lactic Acid Calcium Ionized Calcium Phosphorus Magnesium Total Bilirubin AST ALT Alkaline Phosphatase Ammonia Total Creatine Kinase CK-MB (CK-2) CK-MB (CK-2) Rel Index Total Protein Albumin Urine WBC (Auto) Vancomycin Trough Salicylates Acetaminophen Plasma/Serum Alcohol Crossmatch 04/16/20 04/24/20 05/01/20 09:02 18:35 07:57 WBC RBC Hgb Hct MCH RDW Plt Count 502 H 498 H Lymph % (Auto) [place] % (Auto) 7.4 H [place] # Baso # Seg Neutrophils % Seg Neuts % (Manual) Lymphocytes % (Manual) Monocytes % (Manual) Seg Neutrophils # Seg Neutrophils # Man Lymphocytes # (Manual) Monocytes # (Manual) Eosinophils # (Manual) Basophils # (Manual) PT INR APTT ABG pH ABG pO2 ABG HCO3 ABG O2 Saturation ABG Base Excess ABG Hemoglobin Oxyhemoglobin Sodium Potassium Chloride Carbon Dioxide BUN Creatinine Glucose POC Glucose 172 H Lactic Acid Calcium Ionized Calcium Phosphorus Magnesium Total Bilirubin AST ALT Alkaline Phosphatase Ammonia Total Creatine Kinase CK-MB (CK-2) CK-MB (CK-2) Rel Index Total Protein Albumin Urine WBC (Auto) Vancomycin Trough Salicylates Acetaminophen Plasma/Serum Alcohol Crossmatch 05/01/20 07:57 WBC RBC Hgb Hct MCH RDW Plt Count Lymph % (Auto) [place] % (Auto) [place] # Baso # Seg Neutrophils % Seg Neuts % (Manual) Lymphocytes % (Manual) Monocytes % (Manual) Seg Neutrophils # Seg Neutrophils # Man Lymphocytes # (Manual) Monocytes # (Manual) Eosinophils # (Manual) Basophils # (Manual) PT INR APTT ABG pH ABG pO2 ABG HCO3 ABG O2 Saturation ABG Base Excess ABG Hemoglobin Oxyhemoglobin Sodium Potassium Chloride Carbon Dioxide BUN 21 H Creatinine Glucose POC Glucose Lactic Acid Calcium 10.6 H Ionized Calcium Phosphorus Magnesium Total Bilirubin AST ALT Alkaline Phosphatase Ammonia Total Creatine Kinase CK-MB (CK-2) CK-MB (CK-2) Rel Index Total Protein Albumin Urine WBC (Auto) Vancomycin Trough Salicylates Acetaminophen Plasma/Serum Alcohol Crossmatch Assessment and Plan 55-year-old female who presented to the hospital was admitted post cardiac arrest at home .Though she is more alert but still confused.,as a result is on restraints. she would need placement in a detention facility. she cannot be independent at this time. continue the supportive treatment . no further neurological intervention at this time. signing off. please call neurology whenever required. thanks.
[2020-05-01] MEDS: ENOXAPARIN 40 MG/0.4 ML INJ SUB-Q SCH (22:23)
[2020-05-02] MEDS: HALOPERIDOL LACTATE 5 MG/1 ML INJ IM PRN (00:40)
[2020-05-02] MEDS: ONDANSETRON 4 MG/2 ML INJ IV PRN (00:47)
[2020-05-02] MEDS: levETIRAcetam 500 MG/5 ML ORAL LIQD PO SCH ×2 (10:04→21:15)
[2020-05-02] MEDS: GLYCOPYRROLATE 1 MG TAB PO SCH ×3 (10:04→21:15)
[2020-05-02] MEDS: QUEtiapine 100 MG TAB FEEDTUBE SCH ×2 (10:04→21:16)
[2020-05-02] MEDS: SERTRALINE 50 MG TAB PO SCH (10:04)
[2020-05-02] MEDS: LANSOPRAZOLE 30 MG SOLUTAB FEEDTUBE SCH (10:04)
[2020-05-02] MEDS: NICOTINE 21 MG/24 HR PATCH TD SCH (10:04)
[2020-05-02] MEDS: MIRTAZAPINE 30 MG TAB PO SCH (10:04)
[2020-05-02] MEDS: SCOPOLAMINE TRANSDERMAL PATCH 72 HR TD SCH (10:04)
[2020-05-02] MEDS: hydrOXYzine PAMOATE 25 MG CAP PO SCH ×2 (10:04→21:15)
[2020-05-02] MEDS: FOLIC ACID 1 MG TAB PO SCH (10:07)
--- NOTE | 2020-05-02 13:06 | Progress Note ---
Assessment and Plan Acute cardiopulmonary arrest with ROSC Acute hypoxemic respiratory failure on MVS Acute metabolic-toxic encephalopathy Metabolic acidosis/alcoholic acidosis/Lactic acidosis Ischemic hepatitis Leucocytosis with lactic acidosis Tobacco use disorder ALcohol use Disorder Hypokalemia High grade fevers - awaiting placement - no new issues; will see prn at this point; continue care as below otherwise - prn supplemental oxygen for target O2 sat's > 90% - prn bronchodilators and pulmonary hygiene per RT - prn Reglan for G.I. motility - Continue VTE and Stress ulcer prophylaxis - Continue enteric nutritional support - Monitor glycemic control, with target blood glucose < 180 mg/dL (Avoid hypoglycemia) - ABG and CXR prn - Continue to avoid nephrotoxins, adjust all medications fro GFR and CrCL - Continue to avoid benzodiazepines , as much as possible, to reduce the possibility of delirium - prn analgesia per pain score - Continue to maintain of sleep-wake cycle, avoid delirium - PT/OT/ROM exercises- awaiting PT/OT evaluation - Continue mobility protocol and skin assessment per protocol for pressure ulcer prevention - Continue to monitor for clinical seizures - Continue Nicotine withdrawal precautions, alcohol withdrawal precautions - continue other care per attending / other consultants - continue discharge planning ..... re-evaluate in prn Subjective Date of service: 05/02/20 Principal diagnosis: Ac cardiopulmonary arrest; Ac hypoxemic resp failure; Acute encephalopathy Interval history: Patient is seen today for: Acute cardiopulmonary arrest with ROSC; Acute h ypoxemic respiratory failure; Acute metabolic-toxic encephalopathy; Ischemic hepatitis; Leucocytosis with lactic acidosis; Tobacco use disorder; Alcohol use Disorder; Hypokalemia; High grade fevers Seen and examined at bedside; 24hour events reviewed; nursing and respiratory care staff consulted; no adverse overnight events reported to me; resting peacefully in bed; still awaiting placement; no new issues respiratory-[place] Objective Vital Signs - 12hr 05/02/20 05/02/20 04:45 08:38 Temperature 98.0 F 97.9 F Pulse Rate 86 Respiratory 20 18 Rate Blood Pressure 147/101 Blood Pressure 136/82 [Left] O2 Sat by Pulse 100 Oximetry Constitutional: no acute distress, alert Eyes: non-icteric ENT: oropharynx moist Neck: supple, no lymphadenopathy, no JVD Effort: normal Ascultation: Bilateral: diminished breath sounds, rhonchi (scant), other (Prolonged expiratory phase.) Percussion: Bilateral: not dull Cardiovascular: regular rate and rhythm (tachycardia), other (S1,S2) Gastrointestinal: normoactive bowel sounds, soft, non-tender, non-distended Integumentary: normal Extremities: no cyanosis, no edema, pulses normal, no ischemia or petechiae Neurologic: normal mental status, non-focal exam (moves all extremities), pupils equal and round, motor strength normal and Psychiatric: mood appropriate, affect normal CBC and BMP: 05/01/20 07:57 05/01/20 07:57 ABG, PT/INR, D-dimer: ABG ABG pH 7.433 pH Units (7.350-7.450) 03/08/20 13:25 ABG pCO2 40.2 mm Hg 03/08/20 13:25 ABG pO2 71.1 mm Hg (80.0-90.0) L 03/08/20 13:25 ABG O2 Saturation 97.0 % (95.0-99.0) 03/08/20 13:25 PT/INR, D-dimer PT 17.0 Sec. (12.2-14.9) H 11/23/19 03:47 INR 1.36 (0.87-1.13) H 11/23/19 03:47 Abnormal lab findings: Abnormal Labs 11/22/19 11/22/19 11/22/19 23:17 23:18 23:27 WBC 21.2 H RBC 3.59 L Hgb 9.8 L Hct MCH 27 L RDW 18.6 H Plt Count 454 H Lymph % (Auto) [place] % (Auto) [place] # Baso # Seg Neutrophils % Seg Neuts % (Manual) 86.0 H Lymphocytes % (Manual) 9.0 L Monocytes % (Manual) Seg Neutrophils # Seg Neutrophils # Man 18.2 H Lymphocytes # (Manual) Monocytes # (Manual) 1.1 H Eosinophils # (Manual) Basophils # (Manual) PT INR APTT ABG pH ABG pO2 ABG HCO3 ABG O2 Saturation ABG Base Excess ABG Hemoglobin Oxyhemoglobin Sodium Potassium Chloride Carbon Dioxide BUN Creatinine Glucose POC Glucose 53 L Lactic Acid Calcium Ionized Calcium Phosphorus Magnesium Total Bilirubin AST ALT Alkaline Phosphatase Ammonia Total Creatine Kinase CK-MB (CK-2) CK-MB (CK-2) Rel Index Total Protein Albumin Urine WBC (Auto) 40.0 H Vancomycin Trough Salicylates Acetaminophen Plasma/Serum Alcohol Crossmatch 11/22/19 11/22/19 11/22/19 23:27 23:27 23:27 WBC RBC Hgb Hct MCH RDW Plt Count Lymph % (Auto) [place] % (Auto) [place] # Baso # Seg Neutrophils % Seg Neuts % (Manual) Lymphocytes % (Manual) Monocytes % (Manual) Seg Neutrophils # Seg Neutrophils # Man Lymphocytes # (Manual) Monocytes # (Manual) Eosinophils # (Manual) Basophils # (Manual) PT INR APTT ABG pH ABG pO2 ABG HCO3 ABG O2 Saturation ABG Base Excess ABG Hemoglobin Oxyhemoglobin Sodium Potassium 2.4 L* Chloride 85.1 L Carbon Dioxide 19 L BUN Creatinine 0.5 L Glucose 261 H POC Glucose Lactic Acid Calcium Ionized Calcium Phosphorus Magnesium Total Bilirubin AST 609 H ALT 152 H Alkaline Phosphatase 160 H Ammonia 117.0 H Total Creatine Kinase 139 H CK-MB (CK-2) 8.3 H CK-MB (CK-2) Rel Index 5.9 H Total Protein Albumin 3.6 L Urine WBC (Auto) Vancomycin Trough Salicylates < 0.3 L Acetaminophen Plasma/Serum Alcohol Crossmatch 11/22/19 11/22/19 11/23/19 23:27 23:27 01:10 WBC RBC Hgb Hct MCH RDW Plt Count Lymph % (Auto) [place] % (Auto) [place] # Baso # Seg Neutrophils % Seg Neuts % (Manual) Lymphocytes % (Manual) Monocytes % (Manual) Seg Neutrophils # Seg Neutrophils # Man Lymphocytes # (Manual) Monocytes # (Manual) Eosinophils # (Manual) Basophils # (Manual) PT INR APTT ABG pH 7.273 L ABG pO2 209.7 H ABG HCO3 ABG O2 Saturation 99.2 H ABG Base Excess -3.9 L ABG Hemoglobin 10.6 L Oxyhemoglobin 93.9 L Sodium Potassium Chloride Carbon Dioxide BUN Creatinine Glucose POC Glucose Lactic Acid Calcium Ionized Calcium Phosphorus Magnesium Total Bilirubin AST ALT Alkaline Phosphatase Ammonia Total Creatine Kinase CK-MB (CK-2) CK-MB (CK-2) Rel Index Total Protein Albumin Urine WBC (Auto) Vancomycin Trough Salicylates Acetaminophen < 5.0 L Plasma/Serum Alcohol 0.08 H Crossmatch 11/23/19 11/23/19 11/23/19 01:19 01:19 03:47 WBC RBC Hgb Hct MCH RDW Plt Count Lymph % (Auto) [place] % (Auto) [place] # Baso # Seg Neutrophils % Seg Neuts % (Manual) Lymphocytes % (Manual) Monocytes % (Manual) Seg Neutrophils # Seg Neutrophils # Man Lymphocytes # (Manual) Monocytes # (Manual) Eosinophils # (Manual) Basophils # (Manual) PT 16.3 H INR 1.29 H APTT ABG pH ABG pO2 ABG HCO3 ABG O2 Saturation ABG Base Excess ABG Hemoglobin Oxyhemoglobin Sodium Potassium Chloride Carbon Dioxide BUN Creatinine Glucose POC Glucose Lactic Acid 2.10 H* 5.00 H* Calcium Ionized Calcium Phosphorus Magnesium Total Bilirubin AST ALT Alkaline Phosphatase Ammonia Total Creatine Kinase CK-MB (CK-2) CK-MB (CK-2) Rel Index Total Protein Albumin Urine WBC (Auto) Vancomycin Trough Salicylates Acetaminophen Plasma/Serum Alcohol Crossmatch 11/23/19 11/23/19 11/23/19 03:47 03:47 04:53 WBC RBC Hgb 9.4 L Hct MCH RDW Plt Count Lymph % (Auto) [place] % (Auto) [place] # Baso # Seg Neutrophils % Seg Neuts % (Manual) Lymphocytes % (Manual) Monocytes % (Manual) Seg Neutrophils # Seg Neutrophils # Man Lymphocytes # (Manual) Monocytes # (Manual) Eosinophils # (Manual) Basophils # (Manual) PT 17.0 H INR 1.36 H APTT 128.2 H* ABG pH ABG pO2 ABG HCO3 ABG O2 Saturation ABG Base Excess ABG Hemoglobin Oxyhemoglobin Sodium Potassium Chloride Carbon Dioxide 18 L BUN Creatinine 0.5 L Glucose 105 H POC Glucose Lactic Acid Calcium 8.3 L Ionized Calcium Phosphorus 2.40 L Magnesium Total Bilirubin 1.30 H AST 761 H ALT 158 H Alkaline Phosphatase 143 H Ammonia Total Creatine Kinase CK-MB (CK-2) CK-MB (CK-2) Rel Index Total Protein Albumin 2.8 L Urine WBC (Auto) Vancomycin Trough Salicylates Acetaminophen Plasma/Serum Alcohol Crossmatch 11/23/19 11/23/19 11/23/19 05:12 06:32 06:32 WBC 16.8 H RBC 3.31 L Hgb 8.9 L Hct 28.7 L MCH 27 L RDW 18.6 H Plt Count Lymph % (Auto) [place] % (Auto) [place] # Baso # Seg Neutrophils % Seg Neuts % (Manual) 94.0 H Lymphocytes % (Manual) 1.0 L Monocytes % (Manual) Seg Neutrophils # Seg Neutrophils # Man 15.8 H Lymphocytes # (Manual) 0.2 L Monocytes # (Manual) Eosinophils # (Manual) Basophils # (Manual) PT INR APTT ABG pH ABG pO2 ABG HCO3 ABG O2 Saturation ABG Base Excess -3.2 L ABG Hemoglobin 9.0 L Oxyhemoglobin 93.6 L Sodium Potassium Chloride Carbon Dioxide BUN Creatinine Glucose POC Glucose Lactic Acid Calcium Ionized Calcium 4.5 L Phosphorus Magnesium Total Bilirubin AST ALT Alkaline Phosphatase Ammonia Total Creatine Kinase CK-MB (CK-2) CK-MB (CK-2) Rel Index Total Protein Albumin Urine WBC (Auto) Vancomycin Trough Salicylates Acetaminophen Plasma/Serum Alcohol Crossmatch 11/23/19 11/24/19 11/24/19 06:32 04:35 04:35 WBC RBC Hgb Hct MCH RDW Plt Count Lymph % (Auto) [place] % (Auto) [place] # Baso # Seg Neutrophils % Seg Neuts % (Manual) Lymphocytes % (Manual) Monocytes % (Manual) Seg Neutrophils # Seg Neutrophils # Man Lymphocytes # (Manual) Monocytes # (Manual) Eosinophils # (Manual) Basophils # (Manual) PT INR APTT ABG pH ABG pO2 ABG HCO3 ABG O2 Saturation ABG Base Excess ABG Hemoglobin Oxyhemoglobin Sodium Potassium Chloride Carbon Dioxide BUN Creatinine Glucose POC Glucose Lactic Acid 3.30 H* Calcium Ionized Calcium Phosphorus Magnesium 1.40 L Total Bilirubin AST ALT Alkaline Phosphatase Ammonia 98.0 H Total Creatine Kinase CK-MB (CK-2) CK-MB (CK-2) Rel Index Total Protein Albumin Urine WBC (Auto) Vancomycin Trough Salicylates Acetaminophen Plasma/Serum Alcohol Crossmatch 11/24/19 11/25/19 11/25/19 05:22 04:34 05:05 WBC 17.3 H RBC 2.88 L Hgb 7.8 L Hct 24.6 L MCH 27 L RDW 18.5 H Plt Count Lymph % (Auto) 7.7 L [place] % (Auto) 9.7 H [place] # 1.7 H Baso # Seg Neutrophils % 82.2 H Seg Neuts % (Manual) Lymphocytes % (Manual) Monocytes % (Manual) Seg Neutrophils # 14.2 H Seg Neutrophils # Man Lymphocytes # (Manual) Monocytes # (Manual) Eosinophils # (Manual) Basophils # (Manual) PT INR APTT ABG pH 7.475 H ABG pO2 ABG HCO3 29.4 H 32.3 H ABG O2 Saturation ABG Base Excess 5.4 H 6.9 H ABG Hemoglobin 9.0 L 10.6 L Oxyhemoglobin 94.3 L Sodium Potassium Chloride Carbon Dioxide BUN Creatinine Glucose POC Glucose Lactic Acid Calcium Ionized Calcium Phosphorus Magnesium Total Bilirubin AST ALT Alkaline Phosphatase Ammonia Total Creatine Kinase CK-MB (CK-2) CK-MB (CK-2) Rel Index Total Protein Albumin Urine WBC (Auto) Vancomycin Trough Salicylates Acetaminophen Plasma/Serum Alcohol Crossmatch 11/25/19 11/25/19 11/26/19 05:05 22:46 03:31 WBC RBC Hgb Hct MCH RDW Plt Count Lymph % (Auto) [place] % (Auto) [place] # Baso # Seg Neutrophils % Seg Neuts % (Manual) Lymphocytes % (Manual) Monocytes % (Manual) Seg Neutrophils # Seg Neutrophils # Man Lymphocytes # (Manual) Monocytes # (Manual) Eosinophils # (Manual) Basophils # (Manual) PT INR APTT ABG pH 7.459 H ABG pO2 ABG HCO3 34.2 H ABG O2 Saturation ABG Base Excess 9.4 H ABG Hemoglobin 7.6 L Oxyhemoglobin 94.8 L Sodium 152 H D 147 H Potassium 2.3 L* D 2.8 L* D Chloride 107.8 H Carbon Dioxide 31 H D 33 H BUN Creatinine 0.6 L 0.6 L Glucose 148 H 177 H POC Glucose Lactic Acid Calcium Ionized Calcium Phosphorus Magnesium Total Bilirubin AST 105 H ALT 71 H Alkaline Phosphatase 155 H Ammonia Total Creatine Kinase CK-MB (CK-2) CK-MB (CK-2) Rel Index Total Protein 5.2 L D Albumin 2.9 L Urine WBC (Auto) Vancomycin Trough Salicylates Acetaminophen Plasma/Serum Alcohol Crossmatch 11/26/19 11/26/19 11/27/19 08:24 08:24 04:20 WBC 12.0 H RBC 3.00 L Hgb 8.0 L 9.3 L Hct 25.9 L 29.7 L MCH 27 L RDW 18.5 H Plt Count Lymph % (Auto) [place] % (Auto) [place] # Baso # Seg Neutrophils % Seg Neuts % (Manual) 89.0 H Lymphocytes % (Manual) 4.0 L Monocytes % (Manual) Seg Neutrophils # Seg Neutrophils # Man 10.7 H Lymphocytes # (Manual) 0.5 L Monocytes # (Manual) Eosinophils # (Manual) Basophils # (Manual) PT INR APTT ABG pH ABG pO2 ABG HCO3 ABG O2 Saturation ABG Base Excess ABG Hemoglobin Oxyhemoglobin Sodium 146 H Potassium 3.4 L D Chloride Carbon Dioxide BUN Creatinine 0.5 L Glucose 165 H POC Glucose Lactic Acid Calcium Ionized Calcium Phosphorus Magnesium Total Bilirubin AST 57 H ALT Alkaline Phosphatase 166 H Ammonia Total Creatine Kinase CK-MB (CK-2) CK-MB (CK-2) Rel Index Total Protein Albumin 2.9 L Urine WBC (Auto) Vancomycin Trough Salicylates Acetaminophen Plasma/Serum Alcohol Crossmatch 11/27/19 11/27/19 11/27/19 04:28 04:28 04:42 WBC RBC Hgb Hct MCH RDW Plt Count Lymph % (Auto) [place] % (Auto) [place] # Baso # Seg Neutrophils % Seg Neuts % (Manual) Lymphocytes % (Manual) Monocytes % (Manual) Seg Neutrophils # Seg Neutrophils # Man Lymphocytes # (Manual) Monocytes # (Manual) Eosinophils # (Manual) Basophils # (Manual) PT INR APTT ABG pH 7.470 H ABG pO2 74.0 L ABG HCO3 33.8 H ABG O2 Saturation ABG Base Excess 9.1 H ABG Hemoglobin 8.7 L Oxyhemoglobin 94.7 L Sodium 146 H Potassium 2.9 L* Chloride Carbon Dioxide BUN 25 H Creatinine Glucose 213 H POC Glucose Lactic Acid Calcium Ionized Calcium Phosphorus 1.00 L Magnesium Total Bilirubin AST ALT Alkaline Phosphatase Ammonia Total Creatine Kinase CK-MB (CK-2) CK-MB (CK-2) Rel Index Total Protein Albumin Urine WBC (Auto) Vancomycin Trough Salicylates Acetaminophen Plasma/Serum Alcohol Crossmatch 11/27/19 11/27/19 11/27/19 05:37 12:20 15:46 WBC RBC Hgb Hct MCH RDW Plt Count Lymph % (Auto) [place] % (Auto) [place] # Baso # Seg Neutrophils % Seg Neuts % (Manual) Lymphocytes % (Manual) Monocytes % (Manual) Seg Neutrophils # Seg Neutrophils # Man Lymphocytes # (Manual) Monocytes # (Manual) Eosinophils # (Manual) Basophils # (Manual) PT INR APTT ABG pH ABG pO2 ABG HCO3 ABG O2 Saturation ABG Base Excess ABG Hemoglobin Oxyhemoglobin Sodium 146 H Potassium 3.5 L D Chloride Carbon Dioxide BUN 24 H Creatinine 0.6 L Glucose 187 H POC Glucose 117 H 220 H Lactic Acid Calcium Ionized Calcium Phosphorus Magnesium Total Bilirubin AST ALT Alkaline Phosphatase Ammonia Total Creatine Kinase CK-MB (CK-2) CK-MB (CK-2) Rel Index Total Protein Albumin Urine WBC (Auto) Vancomycin Trough Salicylates Acetaminophen Plasma/Serum Alcohol Crossmatch 11/27/19 11/28/19 11/28/19 17:28 05:00 05:02 WBC RBC Hgb Hct MCH RDW Plt Count Lymph % (Auto) [place] % (Auto) [place] # Baso # Seg Neutrophils % Seg Neuts % (Manual) Lymphocytes % (Manual) Monocytes % (Manual) Seg Neutrophils # Seg Neutrophils # Man Lymphocytes # (Manual) Monocytes # (Manual) Eosinophils # (Manual) Basophils # (Manual) PT INR APTT ABG pH ABG pO2 72.4 L ABG HCO3 33.6 H ABG O2 Saturation 94.1 L ABG Base Excess 7.3 H ABG Hemoglobin Oxyhemoglobin 91.8 L Sodium 146 H Potassium 3.3 L Chloride Carbon Dioxide BUN 25 H Creatinine 0.6 L Glucose 176 H POC Glucose 198 H Lactic Acid Calcium Ionized Calcium Phosphorus Magnesium Total Bilirubin AST ALT Alkaline Phosphatase Ammonia Total Creatine Kinase CK-MB (CK-2) CK-MB (CK-2) Rel Index Total Protein Albumin Urine WBC (Auto) Vancomycin Trough Salicylates Acetaminophen Plasma/Serum Alcohol Crossmatch 11/28/19 11/28/19 11/29/19 05:02 18:55 10:43 WBC 15.2 H 19.0 H RBC 3.06 L 3.01 L Hgb 8.3 L 8.3 L Hct 27.0 L 26.4 L MCH 27 L RDW 19.0 H 19.7 H Plt Count 479 H 611 H Lymph % (Auto) [place] % (Auto) [place] # Baso # Seg Neutrophils % Seg Neuts % (Manual) 92.0 H Lymphocytes % (Manual) 2.0 L Monocytes % (Manual) Seg Neutrophils # Seg Neutrophils # Man 14.0 H Lymphocytes # (Manual) 0.3 L Monocytes # (Manual) Eosinophils # (Manual) Basophils # (Manual) PT INR APTT ABG pH ABG pO2 ABG HCO3 ABG O2 Saturation ABG Base Excess ABG Hemoglobin Oxyhemoglobin Sodium Potassium Chloride Carbon Dioxide BUN Creatinine Glucose POC Glucose 138 H Lactic Acid Calcium Ionized Calcium Phosphorus Magnesium Total Bilirubin AST ALT Alkaline Phosphatase Ammonia Total Creatine Kinase CK-MB (CK-2) CK-MB (CK-2) Rel Index Total Protein Albumin Urine WBC (Auto) Vancomycin Trough Salicylates Acetaminophen Plasma/Serum Alcohol Crossmatch 11/29/19 11/29/19 11/29/19 10:43 12:27 19:25 WBC RBC Hgb Hct MCH RDW Plt Count Lymph % (Auto) [place] % (Auto) [place] # Baso # Seg Neutrophils % Seg Neuts % (Manual) Lymphocytes % (Manual) Monocytes % (Manual) Seg Neutrophils # Seg Neutrophils # Man Lymphocytes # (Manual) Monocytes # (Manual) Eosinophils # (Manual) Basophils # (Manual) PT INR APTT ABG pH ABG pO2 ABG HCO3 ABG O2 Saturation ABG Base Excess ABG Hemoglobin Oxyhemoglobin Sodium Potassium 2.8 L* Chloride Carbon Dioxide BUN 20 H Creatinine 0.5 L Glucose 121 H POC Glucose 128 H 120 H Lactic Acid Calcium Ionized Calcium Phosphorus Magnesium Total Bilirubin AST ALT Alkaline Phosphatase Ammonia Total Creatine Kinase CK-MB (CK-2) CK-MB (CK-2) Rel Index Total Protein Albumin Urine WBC (Auto) Vancomycin Trough Salicylates Acetaminophen Plasma/Serum Alcohol Crossmatch 11/29/19 11/30/19 11/30/19 23:46 04:10 05:02 WBC RBC Hgb Hct MCH RDW Plt Count Lymph % (Auto) [place] % (Auto) [place] # Baso # Seg Neutrophils % Seg Neuts % (Manual) Lymphocytes % (Manual) Monocytes % (Manual) Seg Neutrophils # Seg Neutrophils # Man Lymphocytes # (Manual) Monocytes # (Manual) Eosinophils # (Manual) Basophils # (Manual) PT INR APTT ABG pH ABG pO2 76.3 L ABG HCO3 32.5 H ABG O2 Saturation ABG Base Excess 6.9 H ABG Hemoglobin 8.0 L Oxyhemoglobin 92.6 L Sodium Potassium Chloride Carbon Dioxide BUN Creatinine Glucose POC Glucose 116 H 128 H Lactic Acid Calcium Ionized Calcium Phosphorus Magnesium Total Bilirubin AST ALT Alkaline Phosphatase Ammonia Total Creatine Kinase CK-MB (CK-2) CK-MB (CK-2) Rel Index Total Protein Albumin Urine WBC (Auto) Vancomycin Trough Salicylates Acetaminophen Plasma/Serum Alcohol Crossmatch 11/30/19 11/30/19 11/30/19 05:25 05:25 12:59 WBC 18.4 H RBC 3.10 L Hgb 8.5 L Hct 27.5 L MCH 27 L RDW 20.9 H Plt Count 691 H Lymph % (Auto) 7.1 L [place] % (Auto) 7.7 H [place] # 1.4 H Baso # Seg Neutrophils % 83.4 H Seg Neuts % (Manual) Lymphocytes % (Manual) Monocytes % (Manual) Seg Neutrophils # 15.4 H Seg Neutrophils # Man Lymphocytes # (Manual) Monocytes # (Manual) Eosinophils # (Manual) Basophils # (Manual) PT INR APTT ABG pH ABG pO2 ABG HCO3 ABG O2 Saturation ABG Base Excess ABG Hemoglobin Oxyhemoglobin Sodium 146 H Potassium Chloride 107.2 H Carbon Dioxide BUN Creatinine 0.5 L Glucose 132 H POC Glucose 124 H Lactic Acid Calcium Ionized Calcium Phosphorus Magnesium Total Bilirubin AST 246 H ALT 274 H Alkaline Phosphatase 203 H Ammonia Total Creatine Kinase CK-MB (CK-2) CK-MB (CK-2) Rel Index Total Protein 5.4 L Albumin 2.9 L Urine WBC (Auto) Vancomycin Trough Salicylates Acetaminophen Plasma/Serum Alcohol Crossmatch 11/30/19 12/01/19 12/01/19 17:53 00:05 05:10 WBC RBC Hgb Hct MCH RDW Plt Count Lymph % (Auto) [place] % (Auto) [place] # Baso # Seg Neutrophils % Seg Neuts % (Manual) Lymphocytes % (Manual) Monocytes % (Manual) Seg Neutrophils # Seg Neutrophils # Man Lymphocytes # (Manual) Monocytes # (Manual) Eosinophils # (Manual) Basophils # (Manual) PT INR APTT ABG pH ABG pO2 ABG HCO3 ABG O2 Saturation ABG Base Excess ABG Hemoglobin Oxyhemoglobin Sodium Potassium Chloride Carbon Dioxide BUN Creatinine Glucose POC Glucose 113 H 143 H 145 H Lactic Acid Calcium Ionized Calcium Phosphorus Magnesium Total Bilirubin AST ALT Alkaline Phosphatase Ammonia Total Creatine Kinase CK-MB (CK-2) CK-MB (CK-2) Rel Index Total Protein Albumin Urine WBC (Auto) Vancomycin Trough Salicylates Acetaminophen Plasma/Serum Alcohol Crossmatch 12/01/19 12/01/19 12/01/19 05:33 08:23 08:23 WBC 22.7 H RBC 2.88 L Hgb 7.9 L Hct 25.2 L MCH 27 L RDW 21.0 H Plt Count 732 H Lymph % (Auto) [place] % (Auto) [place] # Baso # Seg Neutrophils % Seg Neuts % (Manual) 91.0 H Lymphocytes % (Manual) 3.0 L Monocytes % (Manual) Seg Neutrophils # Seg Neutrophils # Man 20.7 H Lymphocytes # (Manual) 0.7 L Monocytes # (Manual) 1.1 H Eosinophils # (Manual) Basophils # (Manual) PT INR APTT ABG pH ABG pO2 68.6 L ABG HCO3 34.1 H ABG O2 Saturation ABG Base Excess 9.0 H ABG Hemoglobin 6.5 L Oxyhemoglobin 94.7 L Sodium Potassium Chloride Carbon Dioxide BUN Creatinine 0.5 L Glucose 125 H POC Glucose Lactic Acid Calcium Ionized Calcium Phosphorus Magnesium Total Bilirubin AST ALT Alkaline Phosphatase Ammonia Total Creatine Kinase CK-MB (CK-2) CK-MB (CK-2) Rel Index Total Protein Albumin Urine WBC (Auto) Vancomycin Trough Salicylates Acetaminophen Plasma/Serum Alcohol Crossmatch 12/01/19 12/01/19 12/01/19 13:21 17:54 20:59 WBC RBC Hgb Hct MCH RDW Plt Count Lymph % (Auto) [place] % (Auto) [place] # Baso # Seg Neutrophils % Seg Neuts % (Manual) Lymphocytes % (Manual) Monocytes % (Manual) Seg Neutrophils # Seg Neutrophils # Man Lymphocytes # (Manual) Monocytes # (Manual) Eosinophils # (Manual) Basophils # (Manual) PT INR APTT ABG pH ABG pO2 78.3 L ABG HCO3 33.8 H ABG O2 Saturation 94.9 L ABG Base Excess 7.9 H ABG Hemoglobin 11.5 L Oxyhemoglobin 92.3 L Sodium Potassium Chloride Carbon Dioxide BUN Creatinine Glucose POC Glucose 111 H 115 H Lactic Acid Calcium Ionized Calcium Phosphorus Magnesium Total Bilirubin AST ALT Alkaline Phosphatase Ammonia Total Creatine Kinase CK-MB (CK-2) CK-MB (CK-2) Rel Index Total Protein Albumin Urine WBC (Auto) Vancomycin Trough Salicylates Acetaminophen Plasma/Serum Alcohol Crossmatch 12/02/19 12/03/19 12/04/19 12:55 20:00 04:26 WBC 15.2 H RBC 2.69 L Hgb 7.4 L Hct 23.6 L MCH 27 L RDW 19.9 H Plt Count 838 H Lymph % (Auto) [place] % (Auto) [place] # Baso # Seg Neutrophils % Seg Neuts % (Manual) Lymphocytes % (Manual) Monocytes % (Manual) Seg Neutrophils # Seg Neutrophils # Man Lymphocytes # (Manual) Monocytes # (Manual) Eosinophils # (Manual) Basophils # (Manual) PT INR APTT ABG pH ABG pO2 68.3 L ABG HCO3 33.5 H ABG O2 Saturation 93.5 L ABG Base Excess 8.4 H ABG Hemoglobin 7.3 L Oxyhemoglobin 90.9 L Sodium Potassium Chloride Carbon Dioxide BUN Creatinine Glucose POC Glucose 107 H Lactic Acid Calcium Ionized Calcium Phosphorus Magnesium Total Bilirubin AST ALT Alkaline Phosphatase Ammonia Total Creatine Kinase CK-MB (CK-2) CK-MB (CK-2) Rel Index Total Protein Albumin Urine WBC (Auto) Vancomycin Trough Salicylates Acetaminophen Plasma/Serum Alcohol Crossmatch 12/04/19 12/04/19 12/04/19 04:26 07:45 12:02 WBC 15.9 H RBC 2.88 L Hgb 7.9 L Hct 25.1 L MCH RDW 20.4 H Plt Count 839 H Lymph % (Auto) 11.3 L [place] % (Auto) 15.2 H [place] # 2.4 H Baso # Seg Neutrophils % 72.4 H Seg Neuts % (Manual) Lymphocytes % (Manual) Monocytes % (Manual) Seg Neutrophils # 11.5 H Seg Neutrophils # Man Lymphocytes # (Manual) Monocytes # (Manual) Eosinophils # (Manual) Basophils # (Manual) PT INR APTT ABG pH ABG pO2 ABG HCO3 ABG O2 Saturation ABG Base Excess ABG Hemoglobin Oxyhemoglobin Sodium Potassium Chloride 96.5 L Carbon Dioxide BUN 21 H Creatinine 0.6 L Glucose 107 H POC Glucose 138 H Lactic Acid Calcium Ionized Calcium Phosphorus Magnesium Total Bilirubin AST ALT Alkaline Phosphatase Ammonia Total Creatine Kinase CK-MB (CK-2) CK-MB (CK-2) Rel Index Total Protein Albumin Urine WBC (Auto) Vancomycin Trough Salicylates Acetaminophen Plasma/Serum Alcohol Crossmatch 12/04/19 12/05/19 12/05/19 18:16 11:55 18:36 WBC RBC Hgb Hct MCH RDW Plt Count Lymph % (Auto) [place] % (Auto) [place] # Baso # Seg Neutrophils % Seg Neuts % (Manual) Lymphocytes % (Manual) Monocytes % (Manual) Seg Neutrophils # Seg Neutrophils # Man Lymphocytes # (Manual) Monocytes # (Manual) Eosinophils # (Manual) Basophils # (Manual) PT INR APTT ABG pH ABG pO2 ABG HCO3 ABG O2 Saturation ABG Base Excess ABG Hemoglobin Oxyhemoglobin Sodium Potassium Chloride Carbon Dioxide BUN Creatinine Glucose POC Glucose 135 H 125 H 135 H Lactic Acid Calcium Ionized Calcium Phosphorus Magnesium Total Bilirubin AST ALT Alkaline Phosphatase Ammonia Total Creatine Kinase CK-MB (CK-2) CK-MB (CK-2) Rel Index Total Protein Albumin Urine WBC (Auto) Vancomycin Trough Salicylates Acetaminophen Plasma/Serum Alcohol Crossmatch 12/05/19 12/06/19 12/06/19 23:30 04:14 05:43 WBC RBC Hgb Hct MCH RDW Plt Count Lymph % (Auto) [place] % (Auto) [place] # Baso # Seg Neutrophils % Seg Neuts % (Manual) Lymphocytes % (Manual) Monocytes % (Manual) Seg Neutrophils # Seg Neutrophils # Man Lymphocytes # (Manual) Monocytes # (Manual) Eosinophils # (Manual) Basophils # (Manual) PT INR APTT ABG pH ABG pO2 ABG HCO3 ABG O2 Saturation ABG Base Excess ABG Hemoglobin Oxyhemoglobin Sodium Potassium 5.6 H Chloride 95.0 L Carbon Dioxide BUN 48 H Creatinine 1.3 H D Glucose POC Glucose 126 H 121 H Lactic Acid Calcium Ionized Calcium Phosphorus Magnesium Total Bilirubin AST 89 H ALT 98 H Alkaline Phosphatase 476 H Ammonia Total Creatine Kinase CK-MB (CK-2) CK-MB (CK-2) Rel Index Total Protein Albumin 2.8 L Urine WBC (Auto) Vancomycin Trough Salicylates Acetaminophen Plasma/Serum Alcohol Crossmatch 12/06/19 12/06/19 12/07/19 10:39 14:34 00:19 WBC 17.3 H RBC 2.60 L Hgb 7.1 L Hct 22.7 L MCH 27 L RDW 20.1 H Plt Count 832 H Lymph % (Auto) [place] % (Auto) [place] # Baso # Seg Neutrophils % Seg Neuts % (Manual) Lymphocytes % (Manual) Monocytes % (Manual) Seg Neutrophils # Seg Neutrophils # Man Lymphocytes # (Manual) Monocytes # (Manual) Eosinophils # (Manual) Basophils # (Manual) PT INR APTT ABG pH ABG pO2 ABG HCO3 ABG O2 Saturation ABG Base Excess ABG Hemoglobin Oxyhemoglobin Sodium Potassium Chloride Carbon Dioxide BUN Creatinine Glucose POC Glucose 128 H 136 H Lactic Acid Calcium Ionized Calcium Phosphorus Magnesium Total Bilirubin AST ALT Alkaline Phosphatase Ammonia Total Creatine Kinase CK-MB (CK-2) CK-MB (CK-2) Rel Index Total Protein Albumin Urine WBC (Auto) Vancomycin Trough Salicylates Acetaminophen Plasma/Serum Alcohol Crossmatch 12/07/19 12/07/19 12/07/19 03:44 03:44 05:53 WBC 16.2 H RBC 2.56 L Hgb 7.1 L Hct 22.3 L MCH RDW 19.4 H Plt Count 782 H Lymph % (Auto) [place] % (Auto) [place] # Baso # Seg Neutrophils % Seg Neuts % (Manual) Lymphocytes % (Manual) Monocytes % (Manual) Seg Neutrophils # Seg Neutrophils # Man Lymphocytes # (Manual) Monocytes # (Manual) Eosinophils # (Manual) Basophils # (Manual) PT INR APTT ABG pH ABG pO2 ABG HCO3 ABG O2 Saturation ABG Base Excess ABG Hemoglobin Oxyhemoglobin Sodium Potassium Chloride 95.6 L Carbon Dioxide BUN 56 H Creatinine 1.4 H Glucose 120 H POC Glucose 128 H Lactic Acid Calcium 10.3 H Ionized Calcium Phosphorus Magnesium Total Bilirubin AST ALT Alkaline Phosphatase Ammonia Total Creatine Kinase CK-MB (CK-2) CK-MB (CK-2) Rel Index Total Protein Albumin Urine WBC (Auto) Vancomycin Trough Salicylates Acetaminophen Plasma/Serum Alcohol Crossmatch 12/07/19 12/07/19 12/08/19 12:54 23:47 00:20 WBC RBC Hgb Hct MCH RDW Plt Count Lymph % (Auto) [place] % (Auto) [place] # Baso # Seg Neutrophils % Seg Neuts % (Manual) Lymphocytes % (Manual) Monocytes % (Manual) Seg Neutrophils # Seg Neutrophils # Man Lymphocytes # (Manual) Monocytes # (Manual) Eosinophils # (Manual) Basophils # (Manual) PT INR APTT ABG pH ABG pO2 ABG HCO3 ABG O2 Saturation ABG Base Excess ABG Hemoglobin Oxyhemoglobin Sodium Potassium Chloride Carbon Dioxide BUN Creatinine Glucose POC Glucose 128 H 130 H 124 H Lactic Acid Calcium Ionized Calcium Phosphorus Magnesium Total Bilirubin AST ALT Alkaline Phosphatase Ammonia Total Creatine Kinase CK-MB (CK-2) CK-MB (CK-2) Rel Index Total Protein Albumin Urine WBC (Auto) Vancomycin Trough Salicylates Acetaminophen Plasma/Serum Alcohol Crossmatch 12/08/19 12/08/19 12/08/19 06:38 12:04 18:26 WBC RBC Hgb Hct MCH RDW Plt Count Lymph % (Auto) [place] % (Auto) [place] # Baso # Seg Neutrophils % Seg Neuts % (Manual) Lymphocytes % (Manual) Monocytes % (Manual) Seg Neutrophils # Seg Neutrophils # Man Lymphocytes # (Manual) Monocytes # (Manual) Eosinophils # (Manual) Basophils # (Manual) PT INR APTT ABG pH ABG pO2 ABG HCO3 ABG O2 Saturation ABG Base Excess ABG Hemoglobin Oxyhemoglobin Sodium Potassium Chloride Carbon Dioxide BUN Creatinine Glucose POC Glucose 137 H 129 H 150 H Lactic Acid Calcium Ionized Calcium Phosphorus Magnesium Total Bilirubin AST ALT Alkaline Phosphatase Ammonia Total Creatine Kinase CK-MB (CK-2) CK-MB (CK-2) Rel Index Total Protein Albumin Urine WBC (Auto) Vancomycin Trough Salicylates Acetaminophen Plasma/Serum Alcohol Crossmatch 12/09/19 12/09/19 12/09/19 00:56 05:34 06:13 WBC RBC Hgb Hct MCH RDW Plt Count Lymph % (Auto) [place] % (Auto) [place] # Baso # Seg Neutrophils % Seg Neuts % (Manual) Lymphocytes % (Manual) Monocytes % (Manual) Seg Neutrophils # Seg Neutrophils # Man Lymphocytes # (Manual) Monocytes # (Manual) Eosinophils # (Manual) Basophils # (Manual) PT INR APTT ABG pH ABG pO2 ABG HCO3 ABG O2 Saturation ABG Base Excess ABG Hemoglobin Oxyhemoglobin Sodium 146 H Potassium Chloride Carbon Dioxide BUN 66 H Creatinine 1.9 H Glucose 116 H POC Glucose 130 H 130 H Lactic Acid Calcium Ionized Calcium Phosphorus Magnesium Total Bilirubin AST ALT Alkaline Phosphatase Ammonia Total Creatine Kinase CK-MB (CK-2) CK-MB (CK-2) Rel Index Total Protein Albumin Urine WBC (Auto) Vancomycin Trough Salicylates Acetaminophen Plasma/Serum Alcohol Crossmatch 12/09/19 12/09/19 12/10/19 11:52 17:50 00:14 WBC RBC Hgb Hct MCH RDW Plt Count Lymph % (Auto) [place] % (Auto) [place] # Baso # Seg Neutrophils % Seg Neuts % (Manual) Lymphocytes % (Manual) Monocytes % (Manual) Seg Neutrophils # Seg Neutrophils # Man Lymphocytes # (Manual) Monocytes # (Manual) Eosinophils # (Manual) Basophils # (Manual) PT INR APTT ABG pH ABG pO2 ABG HCO3 ABG O2 Saturation ABG Base Excess ABG Hemoglobin Oxyhemoglobin Sodium Potassium Chloride Carbon Dioxide BUN Creatinine Glucose POC Glucose 135 H 120 H 116 H Lactic Acid Calcium Ionized Calcium Phosphorus Magnesium Total Bilirubin AST ALT Alkaline Phosphatase Ammonia Total Creatine Kinase CK-MB (CK-2) CK-MB (CK-2) Rel Index Total Protein Albumin Urine WBC (Auto) Vancomycin Trough Salicylates Acetaminophen Plasma/Serum Alcohol Crossmatch 12/10/19 12/10/19 12/10/19 05:38 11:38 17:34 WBC RBC Hgb Hct MCH RDW Plt Count Lymph % (Auto) [place] % (Auto) [place] # Baso # Seg Neutrophils % Seg Neuts % (Manual) Lymphocytes % (Manual) Monocytes % (Manual) Seg Neutrophils # Seg Neutrophils # Man Lymphocytes # (Manual) Monocytes # (Manual) Eosinophils # (Manual) Basophils # (Manual) PT INR APTT ABG pH ABG pO2 ABG HCO3 ABG O2 Saturation ABG Base Excess ABG Hemoglobin Oxyhemoglobin Sodium Potassium Chloride Carbon Dioxide BUN Creatinine Glucose POC Glucose 115 H 112 H 130 H Lactic Acid Calcium Ionized Calcium Phosphorus Magnesium Total Bilirubin AST ALT Alkaline Phosphatase Ammonia Total Creatine Kinase CK-MB (CK-2) CK-MB (CK-2) Rel Index Total Protein Albumin Urine WBC (Auto) Vancomycin Trough Salicylates Acetaminophen Plasma/Serum Alcohol Crossmatch 12/11/19 12/11/19 12/11/19 00:20 05:31 12:22 WBC RBC Hgb Hct MCH RDW Plt Count Lymph % (Auto) [place] % (Auto) [place] # Baso # Seg Neutrophils % Seg Neuts % (Manual) Lymphocytes % (Manual) Monocytes % (Manual) Seg Neutrophils # Seg Neutrophils # Man Lymphocytes # (Manual) Monocytes # (Manual) Eosinophils # (Manual) Basophils # (Manual) PT INR APTT ABG pH ABG pO2 ABG HCO3 ABG O2 Saturation ABG Base Excess ABG Hemoglobin Oxyhemoglobin Sodium Potassium Chloride Carbon Dioxide BUN Creatinine Glucose POC Glucose 124 H 132 H 128 H Lactic Acid Calcium Ionized Calcium Phosphorus Magnesium Total Bilirubin AST ALT Alkaline Phosphatase Ammonia Total Creatine Kinase CK-MB (CK-2) CK-MB (CK-2) Rel Index Total Protein Albumin Urine WBC (Auto) Vancomycin Trough Salicylates Acetaminophen Plasma/Serum Alcohol Crossmatch 12/11/19 12/11/19 12/12/19 18:04 23:42 03:51 WBC RBC Hgb Hct MCH RDW Plt Count Lymph % (Auto) [place] % (Auto) [place] # Baso # Seg Neutrophils % Seg Neuts % (Manual) Lymphocytes % (Manual) Monocytes % (Manual) Seg Neutrophils # Seg Neutrophils # Man Lymphocytes # (Manual) Monocytes # (Manual) Eosinophils # (Manual) Basophils # (Manual) PT INR APTT ABG pH ABG pO2 ABG HCO3 ABG O2 Saturation ABG Base Excess ABG Hemoglobin Oxyhemoglobin Sodium 149 H Potassium Chloride Carbon Dioxide 20 L D BUN 77 H Creatinine 2.8 H Glucose POC Glucose 133 H 154 H Lactic Acid Calcium Ionized Calcium Phosphorus Magnesium Total Bilirubin AST ALT Alkaline Phosphatase Ammonia Total Creatine Kinase CK-MB (CK-2) CK-MB (CK-2) Rel Index Total Protein Albumin Urine WBC (Auto) Vancomycin Trough Salicylates Acetaminophen Plasma/Serum Alcohol Crossmatch 12/12/19 12/12/19 12/12/19 05:18 05:26 10:30 WBC 18.0 H RBC 2.51 L Hgb 6.8 L Hct 22.0 L MCH 27 L RDW 19.9 H Plt Count 582 H Lymph % (Auto) [place] % (Auto) [place] # Baso # Seg Neutrophils % Seg Neuts % (Manual) Lymphocytes % (Manual) Monocytes % (Manual) Seg Neutrophils # Seg Neutrophils # Man Lymphocytes # (Manual) Monocytes # (Manual) Eosinophils # (Manual) Basophils # (Manual) PT INR APTT ABG pH ABG pO2 ABG HCO3 ABG O2 Saturation ABG Base Excess ABG Hemoglobin Oxyhemoglobin Sodium Potassium Chloride Carbon Dioxide BUN Creatinine Glucose POC Glucose 135 H Lactic Acid Calcium Ionized Calcium Phosphorus Magnesium Total Bilirubin AST ALT Alkaline Phosphatase Ammonia Total Creatine Kinase CK-MB (CK-2) CK-MB (CK-2) Rel Index Total Protein Albumin Urine WBC (Auto) Vancomycin Trough Salicylates Acetaminophen Plasma/Serum Alcohol Crossmatch See Detail 12/12/19 12/12/19 12/12/19 11:44 18:10 23:21 WBC RBC Hgb Hct MCH RDW Plt Count Lymph % (Auto) [place] % (Auto) [place] # Baso # Seg Neutrophils % Seg Neuts % (Manual) Lymphocytes % (Manual) Monocytes % (Manual) Seg Neutrophils # Seg Neutrophils # Man Lymphocytes # (Manual) Monocytes # (Manual) Eosinophils # (Manual) Basophils # (Manual) PT INR APTT ABG pH ABG pO2 ABG HCO3 ABG O2 Saturation ABG Base Excess ABG Hemoglobin Oxyhemoglobin Sodium Potassium Chloride Carbon Dioxide BUN Creatinine Glucose POC Glucose 108 H 107 H 126 H Lactic Acid Calcium Ionized Calcium Phosphorus Magnesium Total Bilirubin AST ALT Alkaline Phosphatase Ammonia Total Creatine Kinase CK-MB (CK-2) CK-MB (CK-2) Rel Index Total Protein Albumin Urine WBC (Auto) Vancomycin Trough Salicylates Acetaminophen Plasma/Serum Alcohol Crossmatch 12/13/19 12/13/19 12/13/19 05:41 07:48 07:48 WBC 38.3 H RBC 2.37 L Hgb 6.3 L Hct 20.9 L MCH 27 L RDW 20.2 H Plt Count 546 H Lymph % (Auto) [place] % (Auto) [place] # Baso # Seg Neutrophils % Seg Neuts % (Manual) 93.0 H Lymphocytes % (Manual) 1.0 L Monocytes % (Manual) Seg Neutrophils # Seg Neutrophils # Man 35.6 H Lymphocytes # (Manual) 0.4 L Monocytes # (Manual) Eosinophils # (Manual) Basophils # (Manual) 0.4 H PT INR APTT ABG pH ABG pO2 ABG HCO3 ABG O2 Saturation ABG Base Excess ABG Hemoglobin Oxyhemoglobin Sodium 152 H Potassium 3.1 L D Chloride 111.9 H Carbon Dioxide 21 L BUN 53 H Creatinine 1.9 H Glucose 141 H POC Glucose 128 H Lactic Acid Calcium Ionized Calcium Phosphorus Magnesium Total Bilirubin AST ALT Alkaline Phosphatase 316 H Ammonia Total Creatine Kinase CK-MB (CK-2) CK-MB (CK-2) Rel Index Total Protein Albumin 2.4 L Urine WBC (Auto) Vancomycin Trough Salicylates Acetaminophen Plasma/Serum Alcohol Crossmatch 12/13/19 12/13/19 12/14/19 18:17 23:19 05:36 WBC RBC Hgb Hct MCH RDW Plt Count Lymph % (Auto) [place] % (Auto) [place] # Baso # Seg Neutrophils % Seg Neuts % (Manual) Lymphocytes % (Manual) Monocytes % (Manual) Seg Neutrophils # Seg Neutrophils # Man Lymphocytes # (Manual) Monocytes # (Manual) Eosinophils # (Manual) Basophils # (Manual) PT INR APTT ABG pH ABG pO2 ABG HCO3 ABG O2 Saturation ABG Base Excess ABG Hemoglobin Oxyhemoglobin Sodium Potassium Chloride Carbon Dioxide BUN Creatinine Glucose POC Glucose 141 H 158 H 182 H Lactic Acid Calcium Ionized Calcium Phosphorus Magnesium Total Bilirubin AST ALT Alkaline Phosphatase Ammonia Total Creatine Kinase CK-MB (CK-2) CK-MB (CK-2) Rel Index Total Protein Albumin Urine WBC (Auto) Vancomycin Trough Salicylates Acetaminophen Plasma/Serum Alcohol Crossmatch 12/14/19 12/14/19 12/14/19 08:48 08:48 10:31 WBC 33.3 H RBC 2.70 L Hgb 7.9 L 8.0 L Hct 25.3 L 24.0 L MCH RDW 19.2 H Plt Count 476 H Lymph % (Auto) [place] % (Auto) [place] # Baso # Seg Neutrophils % Seg Neuts % (Manual) Lymphocytes % (Manual) Monocytes % (Manual) Seg Neutrophils # Seg Neutrophils # Man Lymphocytes # (Manual) Monocytes # (Manual) Eosinophils # (Manual) Basophils # (Manual) PT INR APTT ABG pH ABG pO2 ABG HCO3 ABG O2 Saturation ABG Base Excess ABG Hemoglobin Oxyhemoglobin Sodium 153 H Potassium 2.5 L* Chloride 114.9 H Carbon Dioxide 20 L BUN 38 H Creatinine 1.4 H Glucose 177 H POC Glucose Lactic Acid Calcium Ionized Calcium Phosphorus Magnesium Total Bilirubin AST ALT Alkaline Phosphatase Ammonia Total Creatine Kinase CK-MB (CK-2) CK-MB (CK-2) Rel Index Total Protein Albumin Urine WBC (Auto) Vancomycin Trough Salicylates Acetaminophen Plasma/Serum Alcohol Crossmatch 12/14/19 12/14/19 12/14/19 12:57 16:15 17:50 WBC RBC Hgb Hct MCH RDW Plt Count Lymph % (Auto) [place] % (Auto) [place] # Baso # Seg Neutrophils % Seg Neuts % (Manual) Lymphocytes % (Manual) Monocytes % (Manual) Seg Neutrophils # Seg Neutrophils # Man Lymphocytes # (Manual) Monocytes # (Manual) Eosinophils # (Manual) Basophils # (Manual) PT INR APTT ABG pH ABG pO2 73.6 L ABG HCO3 ABG O2 Saturation ABG Base Excess ABG Hemoglobin 7.6 L Oxyhemoglobin 94.0 L Sodium Potassium Chloride Carbon Dioxide BUN Creatinine Glucose POC Glucose 174 H 150 H Lactic Acid Calcium Ionized Calcium Phosphorus Magnesium Total Bilirubin AST ALT Alkaline Phosphatase Ammonia Total Creatine Kinase CK-MB (CK-2) CK-MB (CK-2) Rel Index Total Protein Albumin Urine WBC (Auto) Vancomycin Trough Salicylates Acetaminophen Plasma/Serum Alcohol Crossmatch 12/15/19 12/15/19 12/15/19 00:28 05:27 07:23 WBC 30.0 H RBC 3.11 L Hgb 8.6 L Hct 27.7 L MCH RDW 20.0 H Plt Count 473 H Lymph % (Auto) [place] % (Auto) [place] # Baso # Seg Neutrophils % Seg Neuts % (Manual) Lymphocytes % (Manual) Monocytes % (Manual) Seg Neutrophils # Seg Neutrophils # Man Lymphocytes # (Manual) Monocytes # (Manual) Eosinophils # (Manual) Basophils # (Manual) PT INR APTT ABG pH ABG pO2 ABG HCO3 ABG O2 Saturation ABG Base Excess ABG Hemoglobin Oxyhemoglobin Sodium Potassium Chloride Carbon Dioxide BUN Creatinine Glucose POC Glucose 167 H 148 H Lactic Acid Calcium Ionized Calcium Phosphorus Magnesium Total Bilirubin AST ALT Alkaline Phosphatase Ammonia Total Creatine Kinase CK-MB (CK-2) CK-MB (CK-2) Rel Index Total Protein Albumin Urine WBC (Auto) Vancomycin Trough Salicylates Acetaminophen Plasma/Serum Alcohol Crossmatch 12/15/19 12/15/19 12/15/19 07:23 12:21 17:41 WBC RBC Hgb Hct MCH RDW Plt Count Lymph % (Auto) [place] % (Auto) [place] # Baso # Seg Neutrophils % Seg Neuts % (Manual) Lymphocytes % (Manual) Monocytes % (Manual) Seg Neutrophils # Seg Neutrophils # Man Lymphocytes # (Manual) Monocytes # (Manual) Eosinophils # (Manual) Basophils # (Manual) PT INR APTT ABG pH ABG pO2 ABG HCO3 ABG O2 Saturation ABG Base Excess ABG Hemoglobin Oxyhemoglobin Sodium 147 H Potassium 3.5 L D Chloride 111.2 H Carbon Dioxide 19 L BUN 29 H Creatinine Glucose 126 H POC Glucose 154 H 144 H Lactic Acid Calcium Ionized Calcium Phosphorus Magnesium Total Bilirubin AST ALT Alkaline Phosphatase Ammonia Total Creatine Kinase CK-MB (CK-2) CK-MB (CK-2) Rel Index Total Protein Albumin Urine WBC (Auto) Vancomycin Trough Salicylates Acetaminophen Plasma/Serum Alcohol Crossmatch 12/16/19 12/16/19 12/16/19 00:22 05:30 05:44 WBC 30.8 H RBC 2.58 L Hgb 7.1 L Hct 22.7 L MCH RDW 19.6 H Plt Count 451 H Lymph % (Auto) [place] % (Auto) [place] # Baso # Seg Neutrophils % Seg Neuts % (Manual) Lymphocytes % (Manual) Monocytes % (Manual) Seg Neutrophils # Seg Neutrophils # Man Lymphocytes # (Manual) Monocytes # (Manual) Eosinophils # (Manual) Basophils # (Manual) PT INR APTT ABG pH ABG pO2 ABG HCO3 ABG O2 Saturation ABG Base Excess ABG Hemoglobin Oxyhemoglobin Sodium Potassium Chloride Carbon Dioxide BUN Creatinine Glucose POC Glucose 139 H 126 H Lactic Acid Calcium Ionized Calcium Phosphorus Magnesium Total Bilirubin AST ALT Alkaline Phosphatase Ammonia Total Creatine Kinase CK-MB (CK-2) CK-MB (CK-2) Rel Index Total Protein Albumin Urine WBC (Auto) Vancomycin Trough Salicylates Acetaminophen Plasma/Serum Alcohol Crossmatch 12/16/19 12/16/19 12/16/19 05:44 11:48 17:37 WBC RBC Hgb Hct MCH RDW Plt Count Lymph % (Auto) [place] % (Auto) [place] # Baso # Seg Neutrophils % Seg Neuts % (Manual) Lymphocytes % (Manual) Monocytes % (Manual) Seg Neutrophils # Seg Neutrophils # Man Lymphocytes # (Manual) Monocytes # (Manual) Eosinophils # (Manual) Basophils # (Manual) PT INR APTT ABG pH ABG pO2 ABG HCO3 ABG O2 Saturation ABG Base Excess ABG Hemoglobin Oxyhemoglobin Sodium Potassium 3.4 L Chloride 109.2 H Carbon Dioxide 19 L BUN 27 H Creatinine Glucose 124 H POC Glucose 125 H 148 H Lactic Acid Calcium Ionized Calcium Phosphorus Magnesium Total Bilirubin AST ALT Alkaline Phosphatase Ammonia Total Creatine Kinase CK-MB (CK-2) CK-MB (CK-2) Rel Index Total Protein Albumin Urine WBC (Auto) Vancomycin Trough Salicylates Acetaminophen Plasma/Serum Alcohol Crossmatch 12/16/19 12/17/19 12/17/19 23:43 05:28 12:47 WBC RBC Hgb Hct MCH RDW Plt Count Lymph % (Auto) [place] % (Auto) [place] # Baso # Seg Neutrophils % Seg Neuts % (Manual) Lymphocytes % (Manual) Monocytes % (Manual) Seg Neutrophils # Seg Neutrophils # Man Lymphocytes # (Manual) Monocytes # (Manual) Eosinophils # (Manual) Basophils # (Manual) PT INR APTT ABG pH ABG pO2 ABG HCO3 ABG O2 Saturation ABG Base Excess ABG Hemoglobin Oxyhemoglobin Sodium Potassium Chloride Carbon Dioxide BUN Creatinine Glucose POC Glucose 142 H 140 H 125 H Lactic Acid Calcium Ionized Calcium Phosphorus Magnesium Total Bilirubin AST ALT Alkaline Phosphatase Ammonia Total Creatine Kinase CK-MB (CK-2) CK-MB (CK-2) Rel Index Total Protein Albumin Urine WBC (Auto) Vancomycin Trough Salicylates Acetaminophen Plasma/Serum Alcohol Crossmatch 12/17/19 12/17/19 12/17/19 17:05 18:00 Unknown WBC RBC Hgb Hct MCH RDW Plt Count Lymph % (Auto) [place] % (Auto) [place] # Baso # Seg Neutrophils % Seg Neuts % (Manual) Lymphocytes % (Manual) Monocytes % (Manual) Seg Neutrophils # Seg Neutrophils # Man Lymphocytes # (Manual) Monocytes # (Manual) Eosinophils # (Manual) Basophils # (Manual) PT INR APTT ABG pH ABG pO2 68.1 L ABG HCO3 ABG O2 Saturation 93.7 L ABG Base Excess ABG Hemoglobin 5.0 L Oxyhemoglobin 91.7 L Sodium Potassium Chloride Carbon Dioxide BUN Creatinine Glucose POC Glucose 140 H Lactic Acid Calcium Ionized Calcium Phosphorus Magnesium Total Bilirubin AST ALT Alkaline Phosphatase Ammonia Total Creatine Kinase CK-MB (CK-2) CK-MB (CK-2) Rel Index Total Protein Albumin Urine WBC (Auto) Vancomycin Trough Salicylates Acetaminophen Plasma/Serum Alcohol Crossmatch 12/18/19 12/18/19 12/18/19 00:16 04:53 04:53 WBC 28.6 H RBC 2.27 L Hgb 6.3 L Hct 19.5 L* MCH RDW 20.0 H Plt Count 497 H Lymph % (Auto) [place] % (Auto) [place] # Baso # Seg Neutrophils % Seg Neuts % (Manual) Lymphocytes % (Manual) Monocytes % (Manual) Seg Neutrophils # Seg Neutrophils # Man Lymphocytes # (Manual) Monocytes # (Manual) Eosinophils # (Manual) Basophils # (Manual) PT INR APTT ABG pH ABG pO2 ABG HCO3 ABG O2 Saturation ABG Base Excess ABG Hemoglobin Oxyhemoglobin Sodium Potassium Chloride 107.9 H Carbon Dioxide 20 L BUN 27 H Creatinine 0.6 L Glucose 116 H POC Glucose 123 H Lactic Acid Calcium Ionized Calcium Phosphorus Magnesium Total Bilirubin AST ALT Alkaline Phosphatase Ammonia Total Creatine Kinase CK-MB (CK-2) CK-MB (CK-2) Rel Index Total Protein Albumin Urine WBC (Auto) Vancomycin Trough Salicylates Acetaminophen Plasma/Serum Alcohol Crossmatch 12/18/19 12/18/19 12/18/19 06:38 11:22 12:08 WBC RBC Hgb Hct MCH RDW Plt Count Lymph % (Auto) [place] % (Auto) [place] # Baso # Seg Neutrophils % Seg Neuts % (Manual) Lymphocytes % (Manual) Monocytes % (Manual) Seg Neutrophils # Seg Neutrophils # Man Lymphocytes # (Manual) Monocytes # (Manual) Eosinophils # (Manual) Basophils # (Manual) PT INR APTT ABG pH ABG pO2 ABG HCO3 ABG O2 Saturation ABG Base Excess ABG Hemoglobin Oxyhemoglobin Sodium Potassium Chloride Carbon Dioxide BUN Creatinine Glucose POC Glucose 120 H 127 H Lactic Acid Calcium Ionized Calcium Phosphorus Magnesium Total Bilirubin AST ALT Alkaline Phosphatase Ammonia Total Creatine Kinase CK-MB (CK-2) CK-MB (CK-2) Rel Index Total Protein Albumin Urine WBC (Auto) Vancomycin Trough Salicylates Acetaminophen Plasma/Serum Alcohol Crossmatch See Detail 12/18/19 12/18/19 12/18/19 14:05 17:49 23:53 WBC RBC Hgb Hct MCH RDW Plt Count Lymph % (Auto) [place] % (Auto) [place] # Baso # Seg Neutrophils % Seg Neuts % (Manual) Lymphocytes % (Manual) Monocytes % (Manual) Seg Neutrophils # Seg Neutrophils # Man Lymphocytes # (Manual) Monocytes # (Manual) Eosinophils # (Manual) Basophils # (Manual) PT INR APTT ABG pH 7.267 L ABG pO2 69.8 L ABG HCO3 ABG O2 Saturation 88.4 L ABG Base Excess ABG Hemoglobin 7.1 L Oxyhemoglobin 86.4 L Sodium Potassium Chloride Carbon Dioxide BUN Creatinine Glucose POC Glucose 157 H 128 H Lactic Acid Calcium Ionized Calcium Phosphorus Magnesium Total Bilirubin AST ALT Alkaline Phosphatase Ammonia Total Creatine Kinase CK-MB (CK-2) CK-MB (CK-2) Rel Index Total Protein Albumin Urine WBC (Auto) Vancomycin Trough Salicylates Acetaminophen Plasma/Serum Alcohol Crossmatch 12/19/19 12/19/19 12/19/19 03:37 03:37 05:25 WBC 31.3 H RBC 2.60 L Hgb 7.6 L Hct 23.0 L MCH RDW 19.4 H Plt Count 530 H Lymph % (Auto) [place] % (Auto) [place] # Baso # Seg Neutrophils % Seg Neuts % (Manual) Lymphocytes % (Manual) Monocytes % (Manual) Seg Neutrophils # Seg Neutrophils # Man Lymphocytes # (Manual) Monocytes # (Manual) Eosinophils # (Manual) Basophils # (Manual) PT INR APTT ABG pH ABG pO2 ABG HCO3 ABG O2 Saturation ABG Base Excess ABG Hemoglobin Oxyhemoglobin Sodium Potassium Chloride Carbon Dioxide 18 L BUN 36 H Creatinine Glucose 111 H POC Glucose 123 H Lactic Acid Calcium Ionized Calcium Phosphorus Magnesium Total Bilirubin AST ALT Alkaline Phosphatase Ammonia Total Creatine Kinase CK-MB (CK-2) CK-MB (CK-2) Rel Index Total Protein Albumin Urine WBC (Auto) Vancomycin Trough Salicylates Acetaminophen Plasma/Serum Alcohol Crossmatch 12/19/19 12/19/19 12/20/19 12:59 18:33 00:00 WBC RBC Hgb Hct MCH RDW Plt Count Lymph % (Auto) [place] % (Auto) [place] # Baso # Seg Neutrophils % Seg Neuts % (Manual) Lymphocytes % (Manual) Monocytes % (Manual) Seg Neutrophils # Seg Neutrophils # Man Lymphocytes # (Manual) Monocytes # (Manual) Eosinophils # (Manual) Basophils # (Manual) PT INR APTT ABG pH ABG pO2 ABG HCO3 ABG O2 Saturation ABG Base Excess ABG Hemoglobin Oxyhemoglobin Sodium Potassium Chloride Carbon Dioxide BUN Creatinine Glucose POC Glucose 130 H 118 H 135 H Lactic Acid Calcium Ionized Calcium Phosphorus Magnesium Total Bilirubin AST ALT Alkaline Phosphatase Ammonia Total Creatine Kinase CK-MB (CK-2) CK-MB (CK-2) Rel Index Total Protein Albumin Urine WBC (Auto) Vancomycin Trough Salicylates Acetaminophen Plasma/Serum Alcohol Crossmatch 12/20/19 12/20/19 12/20/19 05:46 12:31 18:07 WBC RBC Hgb Hct MCH RDW Plt Count Lymph % (Auto) [place] % (Auto) [place] # Baso # Seg Neutrophils % Seg Neuts % (Manual) Lymphocytes % (Manual) Monocytes % (Manual) Seg Neutrophils # Seg Neutrophils # Man Lymphocytes # (Manual) Monocytes # (Manual) Eosinophils # (Manual) Basophils # (Manual) PT INR APTT ABG pH ABG pO2 ABG HCO3 ABG O2 Saturation ABG Base Excess ABG Hemoglobin Oxyhemoglobin Sodium Potassium Chloride Carbon Dioxide BUN Creatinine Glucose POC Glucose 131 H 128 H 134 H Lactic Acid Calcium Ionized Calcium Phosphorus Magnesium Total Bilirubin AST ALT Alkaline Phosphatase Ammonia Total Creatine Kinase CK-MB (CK-2) CK-MB (CK-2) Rel Index Total Protein Albumin Urine WBC (Auto) Vancomycin Trough Salicylates Acetaminophen Plasma/Serum Alcohol Crossmatch 12/21/19 12/21/19 12/21/19 03:28 03:28 07:21 WBC 29.4 H RBC 2.30 L Hgb 6.8 L Hct 20.2 L MCH RDW 20.2 H Plt Count 746 H Lymph % (Auto) [place] % (Auto) [place] # Baso # Seg Neutrophils % Seg Neuts % (Manual) 85.0 H Lymphocytes % (Manual) 8.0 L Monocytes % (Manual) Seg Neutrophils # Seg Neutrophils # Man 25.0 H Lymphocytes # (Manual) Monocytes # (Manual) 1.5 H Eosinophils # (Manual) 0.6 H Basophils # (Manual) PT INR APTT ABG pH ABG pO2 ABG HCO3 ABG O2 Saturation ABG Base Excess ABG Hemoglobin Oxyhemoglobin Sodium Potassium Chloride Carbon Dioxide 17 L BUN 57 H Creatinine 1.4 H D Glucose POC Glucose 124 H Lactic Acid Calcium Ionized Calcium Phosphorus Magnesium Total Bilirubin AST ALT Alkaline Phosphatase Ammonia Total Creatine Kinase CK-MB (CK-2) CK-MB (CK-2) Rel Index Total Protein Albumin Urine WBC (Auto) Vancomycin Trough Salicylates Acetaminophen Plasma/Serum Alcohol Crossmatch 12/21/19 12/21/19 12/21/19 08:56 12:06 14:53 WBC RBC Hgb 7.2 L Hct 22.9 L MCH RDW Plt Count Lymph % (Auto) [place] % (Auto) [place] # Baso # Seg Neutrophils % Seg Neuts % (Manual) Lymphocytes % (Manual) Monocytes % (Manual) Seg Neutrophils # Seg Neutrophils # Man Lymphocytes # (Manual) Monocytes # (Manual) Eosinophils # (Manual) Basophils # (Manual) PT INR APTT ABG pH ABG pO2 ABG HCO3 ABG O2 Saturation ABG Base Excess ABG Hemoglobin Oxyhemoglobin Sodium Potassium Chloride Carbon Dioxide BUN Creatinine Glucose POC Glucose 116 H Lactic Acid Calcium Ionized Calcium Phosphorus Magnesium Total Bilirubin AST ALT Alkaline Phosphatase Ammonia Total Creatine Kinase CK-MB (CK-2) CK-MB (CK-2) Rel Index Total Protein Albumin Urine WBC (Auto) Vancomycin Trough 33.8 H Salicylates Acetaminophen Plasma/Serum Alcohol Crossmatch 12/21/19 12/21/19 12/21/19 14:54 17:27 23:49 WBC RBC Hgb Hct MCH RDW Plt Count Lymph % (Auto) [place] % (Auto) [place] # Baso # Seg Neutrophils % Seg Neuts % (Manual) Lymphocytes % (Manual) Monocytes % (Manual) Seg Neutrophils # Seg Neutrophils # Man Lymphocytes # (Manual) Monocytes # (Manual) Eosinophils # (Manual) Basophils # (Manual) PT INR APTT ABG pH ABG pO2 ABG HCO3 ABG O2 Saturation ABG Base Excess ABG Hemoglobin Oxyhemoglobin Sodium Potassium Chloride Carbon Dioxide BUN Creatinine Glucose POC Glucose 145 H 127 H Lactic Acid Calcium Ionized Calcium Phosphorus Magnesium Total Bilirubin AST ALT Alkaline Phosphatase Ammonia Total Creatine Kinase CK-MB (CK-2) CK-MB (CK-2) Rel Index Total Protein Albumin Urine WBC (Auto) Vancomycin Trough Salicylates Acetaminophen Plasma/Serum Alcohol Crossmatch See Detail 12/22/19 12/22/19 12/22/19 04:43 05:56 08:40 WBC RBC Hgb Hct MCH RDW Plt Count Lymph % (Auto) [place] % (Auto) [place] # Baso # Seg Neutrophils % Seg Neuts % (Manual) Lymphocytes % (Manual) Monocytes % (Manual) Seg Neutrophils # Seg Neutrophils # Man Lymphocytes # (Manual) Monocytes # (Manual) Eosinophils # (Manual) Basophils # (Manual) PT INR APTT ABG pH ABG pO2 75.6 L ABG HCO3 ABG O2 Saturation ABG Base Excess -2.6 L ABG Hemoglobin 6.8 L Oxyhemoglobin 94.6 L Sodium Potassium Chloride Carbon Dioxide 17 L BUN 60 H Creatinine 1.4 H Glucose 126 H POC Glucose 153 H Lactic Acid Calcium Ionized Calcium Phosphorus Magnesium Total Bilirubin AST ALT Alkaline Phosphatase Ammonia Total Creatine Kinase CK-MB (CK-2) CK-MB (CK-2) Rel Index Total Protein Albumin Urine WBC (Auto) Vancomycin Trough Salicylates Acetaminophen Plasma/Serum Alcohol Crossmatch 12/22/19 12/22/19 12/23/19 12:07 17:49 04:30 WBC 22.4 H RBC 2.68 L Hgb 7.6 L Hct 22.9 L MCH RDW 19.9 H Plt Count 998 H Lymph % (Auto) [place] % (Auto) [place] # Baso # Seg Neutrophils % Seg Neuts % (Manual) 88.0 H Lymphocytes % (Manual) 2.0 L Monocytes % (Manual) 9.0 H Seg Neutrophils # Seg Neutrophils # Man 19.7 H Lymphocytes # (Manual) 0.4 L Monocytes # (Manual) 2.0 H Eosinophils # (Manual) Basophils # (Manual) PT INR APTT ABG pH ABG pO2 ABG HCO3 ABG O2 Saturation ABG Base Excess ABG Hemoglobin Oxyhemoglobin Sodium Potassium Chloride Carbon Dioxide BUN Creatinine Glucose POC Glucose 140 H 116 H Lactic Acid Calcium Ionized Calcium Phosphorus Magnesium Total Bilirubin AST ALT Alkaline Phosphatase Ammonia Total Creatine Kinase CK-MB (CK-2) CK-MB (CK-2) Rel Index Total Protein Albumin Urine WBC (Auto) Vancomycin Trough Salicylates Acetaminophen Plasma/Serum Alcohol Crossmatch 12/23/19 12/23/19 12/23/19 04:30 12:00 18:06 WBC RBC Hgb Hct MCH RDW Plt Count Lymph % (Auto) [place] % (Auto) [place] # Baso # Seg Neutrophils % Seg Neuts % (Manual) Lymphocytes % (Manual) Monocytes % (Manual) Seg Neutrophils # Seg Neutrophils # Man Lymphocytes # (Manual) Monocytes # (Manual) Eosinophils # (Manual) Basophils # (Manual) PT INR APTT ABG pH ABG pO2 ABG HCO3 ABG O2 Saturation ABG Base Excess ABG Hemoglobin Oxyhemoglobin Sodium Potassium 5.2 H Chloride Carbon Dioxide 21 L BUN 69 H Creatinine 1.5 H Glucose 117 H POC Glucose 128 H 138 H Lactic Acid Calcium Ionized Calcium Phosphorus Magnesium Total Bilirubin AST ALT Alkaline Phosphatase Ammonia Total Creatine Kinase CK-MB (CK-2) CK-MB (CK-2) Rel Index Total Protein Albumin Urine WBC (Auto) Vancomycin Trough Salicylates Acetaminophen Plasma/Serum Alcohol Crossmatch 12/23/19 12/24/19 12/24/19 23:46 04:31 05:08 WBC RBC Hgb Hct MCH RDW Plt Count Lymph % (Auto) [place] % (Auto) [place] # Baso # Seg Neutrophils % Seg Neuts % (Manual) Lymphocytes % (Manual) Monocytes % (Manual) Seg Neutrophils # Seg Neutrophils # Man Lymphocytes # (Manual) Monocytes # (Manual) Eosinophils # (Manual) Basophils # (Manual) PT INR APTT ABG pH ABG pO2 ABG HCO3 ABG O2 Saturation ABG Base Excess ABG Hemoglobin Oxyhemoglobin Sodium Potassium 5.3 H Chloride 107.6 H Carbon Dioxide 20 L BUN 72 H Creatinine 1.6 H Glucose 120 H POC Glucose 120 H 140 H Lactic Acid Calcium Ionized Calcium Phosphorus Magnesium Total Bilirubin AST ALT Alkaline Phosphatase Ammonia Total Creatine Kinase CK-MB (CK-2) CK-MB (CK-2) Rel Index Total Protein Albumin Urine WBC (Auto) Vancomycin Trough Salicylates Acetaminophen Plasma/Serum Alcohol Crossmatch 12/24/19 12/24/19 12/25/19 11:58 17:49 03:47 WBC 36.2 H RBC 2.92 L Hgb 8.4 L Hct 26.1 L MCH RDW 20.2 H Plt Count 942 H Lymph % (Auto) [place] % (Auto) [place] # Baso # Seg Neutrophils % Seg Neuts % (Manual) 97.5 H Lymphocytes % (Manual) 1.0 L Monocytes % (Manual) Seg Neutrophils # Seg Neutrophils # Man 35.3 H Lymphocytes # (Manual) 0.4 L Monocytes # (Manual) Eosinophils # (Manual) Basophils # (Manual) PT INR APTT ABG pH ABG pO2 ABG HCO3 ABG O2 Saturation ABG Base Excess ABG Hemoglobin Oxyhemoglobin Sodium Potassium Chloride Carbon Dioxide BUN Creatinine Glucose POC Glucose 146 H 131 H Lactic Acid Calcium Ionized Calcium Phosphorus Magnesium Total Bilirubin AST ALT Alkaline Phosphatase Ammonia Total Creatine Kinase CK-MB (CK-2) CK-MB (CK-2) Rel Index Total Protein Albumin Urine WBC (Auto) Vancomycin Trough Salicylates Acetaminophen Plasma/Serum Alcohol Crossmatch 12/25/19 12/25/19 12/25/19 03:47 05:30 12:23 WBC RBC Hgb Hct MCH RDW Plt Count Lymph % (Auto) [place] % (Auto) [place] # Baso # Seg Neutrophils % Seg Neuts % (Manual) Lymphocytes % (Manual) Monocytes % (Manual) Seg Neutrophils # Seg Neutrophils # Man Lymphocytes # (Manual) Monocytes # (Manual) Eosinophils # (Manual) Basophils # (Manual) PT INR APTT ABG pH ABG pO2 ABG HCO3 ABG O2 Saturation ABG Base Excess ABG Hemoglobin Oxyhemoglobin Sodium Potassium Chloride Carbon Dioxide 15 L BUN 70 H Creatinine 1.7 H Glucose 153 H POC Glucose 169 H 135 H Lactic Acid Calcium Ionized Calcium Phosphorus Magnesium Total Bilirubin AST ALT Alkaline Phosphatase Ammonia Total Creatine Kinase CK-MB (CK-2) CK-MB (CK-2) Rel Index Total Protein Albumin Urine WBC (Auto) Vancomycin Trough Salicylates Acetaminophen Plasma/Serum Alcohol Crossmatch 12/25/19 12/25/19 12/26/19 17:37 23:29 09:47 WBC 22.1 H RBC 2.83 L Hgb 7.9 L Hct 25.5 L MCH RDW 20.0 H Plt Count 894 H Lymph % (Auto) [place] % (Auto) [place] # Baso # Seg Neutrophils % Seg Neuts % (Manual) Lymphocytes % (Manual) Monocytes % (Manual) Seg Neutrophils # Seg Neutrophils # Man Lymphocytes # (Manual) Monocytes # (Manual) Eosinophils # (Manual) Basophils # (Manual) PT INR APTT ABG pH ABG pO2 ABG HCO3 ABG O2 Saturation ABG Base Excess ABG Hemoglobin Oxyhemoglobin Sodium Potassium Chloride Carbon Dioxide BUN Creatinine Glucose POC Glucose 120 H 140 H Lactic Acid Calcium Ionized Calcium Phosphorus Magnesium Total Bilirubin AST ALT Alkaline Phosphatase Ammonia Total Creatine Kinase CK-MB (CK-2) CK-MB (CK-2) Rel Index Total Protein Albumin Urine WBC (Auto) Vancomycin Trough Salicylates Acetaminophen Plasma/Serum Alcohol Crossmatch 12/26/19 12/26/19 12/26/19 09:47 11:46 17:52 WBC RBC Hgb Hct MCH RDW Plt Count Lymph % (Auto) [place] % (Auto) [place] # Baso # Seg Neutrophils % Seg Neuts % (Manual) Lymphocytes % (Manual) Monocytes % (Manual) Seg Neutrophils # Seg Neutrophils # Man Lymphocytes # (Manual) Monocytes # (Manual) Eosinophils # (Manual) Basophils # (Manual) PT INR APTT ABG pH ABG pO2 ABG HCO3 ABG O2 Saturation ABG Base Excess ABG Hemoglobin Oxyhemoglobin Sodium Potassium Chloride Carbon Dioxide 18 L BUN 65 H Creatinine 1.4 H Glucose 132 H POC Glucose 110 H 145 H Lactic Acid Calcium Ionized Calcium Phosphorus Magnesium Total Bilirubin AST ALT Alkaline Phosphatase Ammonia Total Creatine Kinase CK-MB (CK-2) CK-MB (CK-2) Rel Index Total Protein Albumin Urine WBC (Auto) Vancomycin Trough Salicylates Acetaminophen Plasma/Serum Alcohol Crossmatch 12/27/19 12/27/19 12/27/19 00:01 03:42 03:42 WBC 18.0 H RBC 2.86 L Hgb 8.0 L Hct 25.2 L MCH RDW 19.2 H Plt Count 873 H Lymph % (Auto) 8.4 L [place] % (Auto) 7.5 H [place] # 1.4 H Baso # 0.2 H Seg Neutrophils % 82.2 H Seg Neuts % (Manual) Lymphocytes % (Manual) Monocytes % (Manual) Seg Neutrophils # 14.8 H Seg Neutrophils # Man Lymphocytes # (Manual) Monocytes # (Manual) Eosinophils # (Manual) Basophils # (Manual) PT INR APTT ABG pH ABG pO2 ABG HCO3 ABG O2 Saturation ABG Base Excess ABG Hemoglobin Oxyhemoglobin Sodium Potassium Chloride Carbon Dioxide BUN 73 H Creatinine 1.4 H Glucose 119 H POC Glucose 124 H Lactic Acid Calcium Ionized Calcium Phosphorus Magnesium Total Bilirubin AST ALT Alkaline Phosphatase Ammonia Total Creatine Kinase CK-MB (CK-2) CK-MB (CK-2) Rel Index Total Protein Albumin Urine WBC (Auto) Vancomycin Trough Salicylates Acetaminophen Plasma/Serum Alcohol Crossmatch 12/27/19 12/27/19 12/27/19 05:45 11:45 17:29 WBC RBC Hgb Hct MCH RDW Plt Count Lymph % (Auto) [place] % (Auto) [place] # Baso # Seg Neutrophils % Seg Neuts % (Manual) Lymphocytes % (Manual) Monocytes % (Manual) Seg Neutrophils # Seg Neutrophils # Man Lymphocytes # (Manual) Monocytes # (Manual) Eosinophils # (Manual) Basophils # (Manual) PT INR APTT ABG pH ABG pO2 ABG HCO3 ABG O2 Saturation ABG Base Excess ABG Hemoglobin Oxyhemoglobin Sodium Potassium Chloride Carbon Dioxide BUN Creatinine Glucose POC Glucose 131 H 123 H 134 H Lactic Acid Calcium Ionized Calcium Phosphorus Magnesium Total Bilirubin AST ALT Alkaline Phosphatase Ammonia Total Creatine Kinase CK-MB (CK-2) CK-MB (CK-2) Rel Index Total Protein Albumin Urine WBC (Auto) Vancomycin Trough Salicylates Acetaminophen Plasma/Serum Alcohol Crossmatch 12/28/19 12/28/19 12/28/19 00:12 05:14 11:53 WBC RBC Hgb Hct MCH RDW Plt Count Lymph % (Auto) [place] % (Auto) [place] # Baso # Seg Neutrophils % Seg Neuts % (Manual) Lymphocytes % (Manual) Monocytes % (Manual) Seg Neutrophils # Seg Neutrophils # Man Lymphocytes # (Manual) Monocytes # (Manual) Eosinophils # (Manual) Basophils # (Manual) PT INR APTT ABG pH ABG pO2 ABG HCO3 ABG O2 Saturation ABG Base Excess ABG Hemoglobin Oxyhemoglobin Sodium Potassium Chloride Carbon Dioxide BUN Creatinine Glucose POC Glucose 138 H 130 H 146 H Lactic Acid Calcium Ionized Calcium Phosphorus Magnesium Total Bilirubin AST ALT Alkaline Phosphatase Ammonia Total Creatine Kinase CK-MB (CK-2) CK-MB (CK-2) Rel Index Total Protein Albumin Urine WBC (Auto) Vancomycin Trough Salicylates Acetaminophen Plasma/Serum Alcohol Crossmatch 12/28/19 12/29/19 12/29/19 17:39 00:01 18:11 WBC RBC Hgb Hct MCH RDW Plt Count Lymph % (Auto) [place] % (Auto) [place] # Baso # Seg Neutrophils % Seg Neuts % (Manual) Lymphocytes % (Manual) Monocytes % (Manual) Seg Neutrophils # Seg Neutrophils # Man Lymphocytes # (Manual) Monocytes # (Manual) Eosinophils # (Manual) Basophils # (Manual) PT INR APTT ABG pH ABG pO2 ABG HCO3 ABG O2 Saturation ABG Base Excess ABG Hemoglobin Oxyhemoglobin Sodium Potassium Chloride Carbon Dioxide BUN Creatinine Glucose POC Glucose 117 H 139 H 130 H Lactic Acid Calcium Ionized Calcium Phosphorus Magnesium Total Bilirubin AST ALT Alkaline Phosphatase Ammonia Total Creatine Kinase CK-MB (CK-2) CK-MB (CK-2) Rel Index Total Protein Albumin Urine WBC (Auto) Vancomycin Trough Salicylates Acetaminophen Plasma/Serum Alcohol Crossmatch 12/29/19 12/30/19 12/30/19 23:09 00:02 01:06 WBC 16.7 H RBC 2.91 L Hgb 8.2 L Hct 25.4 L MCH RDW 18.7 H Plt Count 708 H Lymph % (Auto) 9.4 L [place] % (Auto) [place] # 0.9 H Baso # Seg Neutrophils % 83.5 H Seg Neuts % (Manual) Lymphocytes % (Manual) Monocytes % (Manual) Seg Neutrophils # 14.0 H Seg Neutrophils # Man Lymphocytes # (Manual) Monocytes # (Manual) Eosinophils # (Manual) Basophils # (Manual) PT INR APTT ABG pH ABG pO2 ABG HCO3 ABG O2 Saturation ABG Base Excess ABG Hemoglobin Oxyhemoglobin Sodium Potassium Chloride Carbon Dioxide BUN Creatinine Glucose POC Glucose 120 H 114 H Lactic Acid Calcium Ionized Calcium Phosphorus Magnesium Total Bilirubin AST ALT Alkaline Phosphatase Ammonia Total Creatine Kinase CK-MB (CK-2) CK-MB (CK-2) Rel Index Total Protein Albumin Urine WBC (Auto) Vancomycin Trough Salicylates Acetaminophen Plasma/Serum Alcohol Crossmatch 12/30/19 12/30/19 12/30/19 01:06 04:23 05:18 WBC RBC Hgb Hct MCH RDW Plt Count Lymph % (Auto) [place] % (Auto) [place] # Baso # Seg Neutrophils % Seg Neuts % (Manual) Lymphocytes % (Manual) Monocytes % (Manual) Seg Neutrophils # Seg Neutrophils # Man Lymphocytes # (Manual) Monocytes # (Manual) Eosinophils # (Manual) Basophils # (Manual) PT INR APTT ABG pH ABG pO2 ABG HCO3 ABG O2 Saturation ABG Base Excess ABG Hemoglobin 8.3 L Oxyhemoglobin Sodium Potassium Chloride Carbon Dioxide BUN 70 H Creatinine Glucose 122 H POC Glucose 130 H Lactic Acid Calcium Ionized Calcium Phosphorus Magnesium Total Bilirubin AST ALT Alkaline Phosphatase Ammonia Total Creatine Kinase CK-MB (CK-2) CK-MB (CK-2) Rel Index Total Protein Albumin Urine WBC (Auto) Vancomycin Trough Salicylates Acetaminophen Plasma/Serum Alcohol Crossmatch 12/30/19 12/30/19 12/30/19 05:40 12:17 17:43 WBC RBC Hgb Hct MCH RDW Plt Count Lymph % (Auto) [place] % (Auto) [place] # Baso # Seg Neutrophils % Seg Neuts % (Manual) Lymphocytes % (Manual) Monocytes % (Manual) Seg Neutrophils # Seg Neutrophils # Man Lymphocytes # (Manual) Monocytes # (Manual) Eosinophils # (Manual) Basophils # (Manual) PT INR APTT ABG pH ABG pO2 ABG HCO3 ABG O2 Saturation ABG Base Excess ABG Hemoglobin Oxyhemoglobin Sodium Potassium Chloride Carbon Dioxide BUN Creatinine Glucose POC Glucose 135 H 132 H 118 H Lactic Acid Calcium Ionized Calcium Phosphorus Magnesium Total Bilirubin AST ALT Alkaline Phosphatase Ammonia Total Creatine Kinase CK-MB (CK-2) CK-MB (CK-2) Rel Index Total Protein Albumin Urine WBC (Auto) Vancomycin Trough Salicylates Acetaminophen Plasma/Serum Alcohol Crossmatch 12/30/19 12/31/19 12/31/19 23:29 05:19 17:50 WBC RBC Hgb Hct MCH RDW Plt Count Lymph % (Auto) [place] % (Auto) [place] # Baso # Seg Neutrophils % Seg Neuts % (Manual) Lymphocytes % (Manual) Monocytes % (Manual) Seg Neutrophils # Seg Neutrophils # Man Lymphocytes # (Manual) Monocytes # (Manual) Eosinophils # (Manual) Basophils # (Manual) PT INR APTT ABG pH ABG pO2 ABG HCO3 ABG O2 Saturation ABG Base Excess ABG Hemoglobin Oxyhemoglobin Sodium Potassium Chloride Carbon Dioxide BUN Creatinine Glucose POC Glucose 114 H 109 H 116 H Lactic Acid Calcium Ionized Calcium Phosphorus Magnesium Total Bilirubin AST ALT Alkaline Phosphatase Ammonia Total Creatine Kinase CK-MB (CK-2) CK-MB (CK-2) Rel Index Total Protein Albumin Urine WBC (Auto) Vancomycin Trough Salicylates Acetaminophen Plasma/Serum Alcohol Crossmatch 01/01/20 01/01/20 01/01/20 00:10 05:19 12:02 WBC RBC Hgb Hct MCH RDW Plt Count Lymph % (Auto) [place] % (Auto) [place] # Baso # Seg Neutrophils % Seg Neuts % (Manual) Lymphocytes % (Manual) Monocytes % (Manual) Seg Neutrophils # Seg Neutrophils # Man Lymphocytes # (Manual) Monocytes # (Manual) Eosinophils # (Manual) Basophils # (Manual) PT INR APTT ABG pH ABG pO2 ABG HCO3 ABG O2 Saturation ABG Base Excess ABG Hemoglobin Oxyhemoglobin Sodium Potassium Chloride Carbon Dioxide BUN Creatinine Glucose POC Glucose 131 H 122 H 136 H Lactic Acid Calcium Ionized Calcium Phosphorus Magnesium Total Bilirubin AST ALT Alkaline Phosphatase Ammonia Total Creatine Kinase CK-MB (CK-2) CK-MB (CK-2) Rel Index Total Protein Albumin Urine WBC (Auto) Vancomycin Trough Salicylates Acetaminophen Plasma/Serum Alcohol Crossmatch 01/02/20 01/02/20 01/02/20 00:24 05:36 11:41 WBC RBC Hgb Hct MCH RDW Plt Count Lymph % (Auto) [place] % (Auto) [place] # Baso # Seg Neutrophils % Seg Neuts % (Manual) Lymphocytes % (Manual) Monocytes % (Manual) Seg Neutrophils # Seg Neutrophils # Man Lymphocytes # (Manual) Monocytes # (Manual) Eosinophils # (Manual) Basophils # (Manual) PT INR APTT ABG pH ABG pO2 ABG HCO3 ABG O2 Saturation ABG Base Excess ABG Hemoglobin Oxyhemoglobin Sodium Potassium Chloride Carbon Dioxide BUN Creatinine Glucose POC Glucose 119 H 109 H 125 H Lactic Acid Calcium Ionized Calcium Phosphorus Magnesium Total Bilirubin AST ALT Alkaline Phosphatase Ammonia Total Creatine Kinase CK-MB (CK-2) CK-MB (CK-2) Rel Index Total Protein Albumin Urine WBC (Auto) Vancomycin Trough Salicylates Acetaminophen Plasma/Serum Alcohol Crossmatch 01/02/20 01/03/20 01/03/20 17:49 05:29 12:13 WBC RBC Hgb Hct MCH RDW Plt Count Lymph % (Auto) [place] % (Auto) [place] # Baso # Seg Neutrophils % Seg Neuts % (Manual) Lymphocytes % (Manual) Monocytes % (Manual) Seg Neutrophils # Seg Neutrophils # Man Lymphocytes # (Manual) Monocytes # (Manual) Eosinophils # (Manual) Basophils # (Manual) PT INR APTT ABG pH ABG pO2 ABG HCO3 ABG O2 Saturation ABG Base Excess ABG Hemoglobin Oxyhemoglobin Sodium Potassium Chloride Carbon Dioxide BUN Creatinine Glucose POC Glucose 130 H 132 H 113 H Lactic Acid Calcium Ionized Calcium Phosphorus Magnesium Total Bilirubin AST ALT Alkaline Phosphatase Ammonia Total Creatine Kinase CK-MB (CK-2) CK-MB (CK-2) Rel Index Total Protein Albumin Urine WBC (Auto) Vancomycin Trough Salicylates Acetaminophen Plasma/Serum Alcohol Crossmatch 01/03/20 01/04/20 01/04/20 17:32 00:19 05:26 WBC RBC Hgb Hct MCH RDW Plt Count Lymph % (Auto) [place] % (Auto) [place] # Baso # Seg Neutrophils % Seg Neuts % (Manual) Lymphocytes % (Manual) Monocytes % (Manual) Seg Neutrophils # Seg Neutrophils # Man Lymphocytes # (Manual) Monocytes # (Manual) Eosinophils # (Manual) Basophils # (Manual) PT INR APTT ABG pH ABG pO2 ABG HCO3 ABG O2 Saturation ABG Base Excess ABG Hemoglobin Oxyhemoglobin Sodium Potassium Chloride Carbon Dioxide BUN Creatinine Glucose POC Glucose 127 H 141 H 129 H Lactic Acid Calcium Ionized Calcium Phosphorus Magnesium Total Bilirubin AST ALT Alkaline Phosphatase Ammonia Total Creatine Kinase CK-MB (CK-2) CK-MB (CK-2) Rel Index Total Protein Albumin Urine WBC (Auto) Vancomycin Trough Salicylates Acetaminophen Plasma/Serum Alcohol Crossmatch 01/04/20 01/04/20 01/05/20 11:39 17:29 05:22 WBC RBC Hgb Hct MCH RDW Plt Count Lymph % (Auto) [place] % (Auto) [place] # Baso # Seg Neutrophils % Seg Neuts % (Manual) Lymphocytes % (Manual) Monocytes % (Manual) Seg Neutrophils # Seg Neutrophils # Man Lymphocytes # (Manual) Monocytes # (Manual) Eosinophils # (Manual) Basophils # (Manual) PT INR APTT ABG pH ABG pO2 ABG HCO3 ABG O2 Saturation ABG Base Excess ABG Hemoglobin Oxyhemoglobin Sodium Potassium Chloride Carbon Dioxide BUN Creatinine Glucose POC Glucose 167 H 132 H 121 H Lactic Acid Calcium Ionized Calcium Phosphorus Magnesium Total Bilirubin AST ALT Alkaline Phosphatase Ammonia Total Creatine Kinase CK-MB (CK-2) CK-MB (CK-2) Rel Index Total Protein Albumin Urine WBC (Auto) Vancomycin Trough Salicylates Acetaminophen Plasma/Serum Alcohol Crossmatch 01/05/20 01/05/20 01/05/20 12:25 17:40 18:06 WBC RBC Hgb Hct MCH RDW Plt Count Lymph % (Auto) [place] % (Auto) [place] # Baso # Seg Neutrophils % Seg Neuts % (Manual) Lymphocytes % (Manual) Monocytes % (Manual) Seg Neutrophils # Seg Neutrophils # Man Lymphocytes # (Manual) Monocytes # (Manual) Eosinophils # (Manual) Basophils # (Manual) PT INR APTT ABG pH 7.472 H ABG pO2 99.2 H ABG HCO3 ABG O2 Saturation ABG Base Excess ABG Hemoglobin 7.8 L Oxyhemoglobin Sodium Potassium Chloride Carbon Dioxide BUN Creatinine Glucose POC Glucose 106 H 110 H Lactic Acid Calcium Ionized Calcium Phosphorus Magnesium Total Bilirubin AST ALT Alkaline Phosphatase Ammonia Total Creatine Kinase CK-MB (CK-2) CK-MB (CK-2) Rel Index Total Protein Albumin Urine WBC (Auto) Vancomycin Trough Salicylates Acetaminophen Plasma/Serum Alcohol Crossmatch 01/06/20 01/06/20 01/06/20 00:11 05:16 11:30 WBC RBC Hgb Hct MCH RDW Plt Count Lymph % (Auto) [place] % (Auto) [place] # Baso # Seg Neutrophils % Seg Neuts % (Manual) Lymphocytes % (Manual) Monocytes % (Manual) Seg Neutrophils # Seg Neutrophils # Man Lymphocytes # (Manual) Monocytes # (Manual) Eosinophils # (Manual) Basophils # (Manual) PT INR APTT ABG pH ABG pO2 ABG HCO3 ABG O2 Saturation ABG Base Excess ABG Hemoglobin Oxyhemoglobin Sodium Potassium Chloride Carbon Dioxide BUN Creatinine Glucose POC Glucose 108 H 124 H 125 H Lactic Acid Calcium Ionized Calcium Phosphorus Magnesium Total Bilirubin AST ALT Alkaline Phosphatase Ammonia Total Creatine Kinase CK-MB (CK-2) CK-MB (CK-2) Rel Index Total Protein Albumin Urine WBC (Auto) Vancomycin Trough Salicylates Acetaminophen Plasma/Serum Alcohol Crossmatch 01/06/20 01/06/20 01/07/20 17:53 23:51 04:12 WBC 16.5 H RBC 3.29 L Hgb 9.3 L Hct 28.1 L MCH RDW 18.2 H Plt Count 526 H Lymph % (Auto) 8.4 L [place] % (Auto) [place] # 1.0 H Baso # Seg Neutrophils % 84.4 H Seg Neuts % (Manual) Lymphocytes % (Manual) Monocytes % (Manual) Seg Neutrophils # 13.9 H Seg Neutrophils # Man Lymphocytes # (Manual) Monocytes # (Manual) Eosinophils # (Manual) Basophils # (Manual) PT INR APTT ABG pH ABG pO2 ABG HCO3 ABG O2 Saturation ABG Base Excess ABG Hemoglobin Oxyhemoglobin Sodium Potassium Chloride Carbon Dioxide BUN Creatinine Glucose POC Glucose 166 H 128 H Lactic Acid Calcium Ionized Calcium Phosphorus Magnesium Total Bilirubin AST ALT Alkaline Phosphatase Ammonia Total Creatine Kinase CK-MB (CK-2) CK-MB (CK-2) Rel Index Total Protein Albumin Urine WBC (Auto) Vancomycin Trough Salicylates Acetaminophen Plasma/Serum Alcohol Crossmatch 01/07/20 01/07/20 01/07/20 04:12 04:45 11:51 WBC RBC Hgb Hct MCH RDW Plt Count Lymph % (Auto) [place] % (Auto) [place] # Baso # Seg Neutrophils % Seg Neuts % (Manual) Lymphocytes % (Manual) Monocytes % (Manual) Seg Neutrophils # Seg Neutrophils # Man Lymphocytes # (Manual) Monocytes # (Manual) Eosinophils # (Manual) Basophils # (Manual) PT INR APTT ABG pH ABG pO2 ABG HCO3 ABG O2 Saturation ABG Base Excess ABG Hemoglobin Oxyhemoglobin Sodium 136 L Potassium Chloride Carbon Dioxide 21 L BUN 44 H Creatinine 0.6 L Glucose 124 H POC Glucose 134 H 138 H Lactic Acid Calcium Ionized Calcium Phosphorus Magnesium Total Bilirubin AST ALT Alkaline Phosphatase Ammonia Total Creatine Kinase CK-MB (CK-2) CK-MB (CK-2) Rel Index Total Protein Albumin Urine WBC (Auto) Vancomycin Trough Salicylates Acetaminophen Plasma/Serum Alcohol Crossmatch 01/07/20 01/08/20 01/08/20 17:36 00:33 05:29 WBC RBC Hgb Hct MCH RDW Plt Count Lymph % (Auto) [place] % (Auto) [place] # Baso # Seg Neutrophils % Seg Neuts % (Manual) Lymphocytes % (Manual) Monocytes % (Manual) Seg Neutrophils # Seg Neutrophils # Man Lymphocytes # (Manual) Monocytes # (Manual) Eosinophils # (Manual) Basophils # (Manual) PT INR APTT ABG pH ABG pO2 ABG HCO3 ABG O2 Saturation ABG Base Excess ABG Hemoglobin Oxyhemoglobin Sodium Potassium Chloride Carbon Dioxide BUN Creatinine Glucose POC Glucose 128 H 119 H 124 H Lactic Acid Calcium Ionized Calcium Phosphorus Magnesium Total Bilirubin AST ALT Alkaline Phosphatase Ammonia Total Creatine Kinase CK-MB (CK-2) CK-MB (CK-2) Rel Index Total Protein Albumin Urine WBC (Auto) Vancomycin Trough Salicylates Acetaminophen Plasma/Serum Alcohol Crossmatch 01/08/20 01/08/20 01/08/20 12:51 20:25 23:22 WBC RBC Hgb Hct MCH RDW Plt Count Lymph % (Auto) [place] % (Auto) [place] # Baso # Seg Neutrophils % Seg Neuts % (Manual) Lymphocytes % (Manual) Monocytes % (Manual) Seg Neutrophils # Seg Neutrophils # Man Lymphocytes # (Manual) Monocytes # (Manual) Eosinophils # (Manual) Basophils # (Manual) PT INR APTT ABG pH ABG pO2 132.2 H ABG HCO3 ABG O2 Saturation ABG Base Excess ABG Hemoglobin Oxyhemoglobin Sodium Potassium Chloride Carbon Dioxide BUN Creatinine Glucose POC Glucose 128 H 127 H Lactic Acid Calcium Ionized Calcium Phosphorus Magnesium Total Bilirubin AST ALT Alkaline Phosphatase Ammonia Total Creatine Kinase CK-MB (CK-2) CK-MB (CK-2) Rel Index Total Protein Albumin Urine WBC (Auto) Vancomycin Trough Salicylates Acetaminophen Plasma/Serum Alcohol Crossmatch 01/09/20 01/09/20 01/09/20 05:48 08:51 11:29 WBC RBC Hgb Hct MCH RDW Plt Count Lymph % (Auto) [place] % (Auto) [place] # Baso # Seg Neutrophils % Seg Neuts % (Manual) Lymphocytes % (Manual) Monocytes % (Manual) Seg Neutrophils # Seg Neutrophils # Man Lymphocytes # (Manual) Monocytes # (Manual) Eosinophils # (Manual) Basophils # (Manual) PT INR APTT ABG pH ABG pO2 94.3 H ABG HCO3 ABG O2 Saturation ABG Base Excess ABG Hemoglobin 9.5 L Oxyhemoglobin Sodium Potassium Chloride Carbon Dioxide BUN Creatinine Glucose POC Glucose 120 H 112 H Lactic Acid Calcium Ionized Calcium Phosphorus Magnesium Total Bilirubin AST ALT Alkaline Phosphatase Ammonia Total Creatine Kinase CK-MB (CK-2) CK-MB (CK-2) Rel Index Total Protein Albumin Urine WBC (Auto) Vancomycin Trough Salicylates Acetaminophen Plasma/Serum Alcohol Crossmatch 01/09/20 01/10/20 01/10/20 17:57 05:17 12:28 WBC RBC Hgb Hct MCH RDW Plt Count Lymph % (Auto) [place] % (Auto) [place] # Baso # Seg Neutrophils % Seg Neuts % (Manual) Lymphocytes % (Manual) Monocytes % (Manual) Seg Neutrophils # Seg Neutrophils # Man Lymphocytes # (Manual) Monocytes # (Manual) Eosinophils # (Manual) Basophils # (Manual) PT INR APTT ABG pH ABG pO2 ABG HCO3 ABG O2 Saturation ABG Base Excess ABG Hemoglobin Oxyhemoglobin Sodium Potassium Chloride Carbon Dioxide BUN Creatinine Glucose POC Glucose 122 H 115 H 116 H Lactic Acid Calcium Ionized Calcium Phosphorus Magnesium Total Bilirubin AST ALT Alkaline Phosphatase Ammonia Total Creatine Kinase CK-MB (CK-2) CK-MB (CK-2) Rel Index Total Protein Albumin Urine WBC (Auto) Vancomycin Trough Salicylates Acetaminophen Plasma/Serum Alcohol Crossmatch 01/10/20 01/10/20 01/11/20 18:25 23:47 06:05 WBC RBC Hgb Hct MCH RDW Plt Count Lymph % (Auto) [place] % (Auto) [place] # Baso # Seg Neutrophils % Seg Neuts % (Manual) Lymphocytes % (Manual) Monocytes % (Manual) Seg Neutrophils # Seg Neutrophils # Man Lymphocytes # (Manual) Monocytes # (Manual) Eosinophils # (Manual) Basophils # (Manual) PT INR APTT ABG pH ABG pO2 ABG HCO3 ABG O2 Saturation ABG Base Excess ABG Hemoglobin Oxyhemoglobin Sodium Potassium Chloride Carbon Dioxide BUN Creatinine Glucose POC Glucose 123 H 115 H 151 H Lactic Acid Calcium Ionized Calcium Phosphorus Magnesium Total Bilirubin AST ALT Alkaline Phosphatase Ammonia Total Creatine Kinase CK-MB (CK-2) CK-MB (CK-2) Rel Index Total Protein Albumin Urine WBC (Auto) Vancomycin Trough Salicylates Acetaminophen Plasma/Serum Alcohol Crossmatch 01/11/20 01/11/20 01/11/20 07:00 07:00 12:27 WBC 11.8 H RBC 3.40 L Hgb 9.4 L Hct 29.3 L MCH RDW 18.1 H Plt Count 549 H Lymph % (Auto) [place] % (Auto) 9.1 H [place] # 1.1 H Baso # Seg Neutrophils % 73.3 H Seg Neuts % (Manual) Lymphocytes % (Manual) Monocytes % (Manual) Seg Neutrophils # 8.7 H Seg Neutrophils # Man Lymphocytes # (Manual) Monocytes # (Manual) Eosinophils # (Manual) Basophils # (Manual) PT INR APTT ABG pH ABG pO2 ABG HCO3 ABG O2 Saturation ABG Base Excess ABG Hemoglobin Oxyhemoglobin Sodium 134 L Potassium Chloride 97.7 L Carbon Dioxide 21 L BUN 38 H Creatinine 0.5 L Glucose 168 H POC Glucose 117 H Lactic Acid Calcium 10.5 H Ionized Calcium Phosphorus Magnesium Total Bilirubin AST ALT Alkaline Phosphatase Ammonia Total Creatine Kinase CK-MB (CK-2) CK-MB (CK-2) Rel Index Total Protein Albumin Urine WBC (Auto) Vancomycin Trough Salicylates Acetaminophen Plasma/Serum Alcohol Crossmatch 01/11/20 01/12/20 01/12/20 18:19 00:53 05:24 WBC RBC Hgb Hct MCH RDW Plt Count Lymph % (Auto) [place] % (Auto) [place] # Baso # Seg Neutrophils % Seg Neuts % (Manual) Lymphocytes % (Manual) Monocytes % (Manual) Seg Neutrophils # Seg Neutrophils # Man Lymphocytes # (Manual) Monocytes # (Manual) Eosinophils # (Manual) Basophils # (Manual) PT INR APTT ABG pH ABG pO2 ABG HCO3 ABG O2 Saturation ABG Base Excess ABG Hemoglobin Oxyhemoglobin Sodium Potassium Chloride Carbon Dioxide BUN Creatinine Glucose POC Glucose 126 H 126 H 128 H Lactic Acid Calcium Ionized Calcium Phosphorus Magnesium Total Bilirubin AST ALT Alkaline Phosphatase Ammonia Total Creatine Kinase CK-MB (CK-2) CK-MB (CK-2) Rel Index Total Protein Albumin Urine WBC (Auto) Vancomycin Trough Salicylates Acetaminophen Plasma/Serum Alcohol Crossmatch 01/12/20 01/12/20 01/13/20 13:39 18:02 00:27 WBC RBC Hgb Hct MCH RDW Plt Count Lymph % (Auto) [place] % (Auto) [place] # Baso # Seg Neutrophils % Seg Neuts % (Manual) Lymphocytes % (Manual) Monocytes % (Manual) Seg Neutrophils # Seg Neutrophils # Man Lymphocytes # (Manual) Monocytes # (Manual) Eosinophils # (Manual) Basophils # (Manual) PT INR APTT ABG pH ABG pO2 ABG HCO3 ABG O2 Saturation ABG Base Excess ABG Hemoglobin Oxyhemoglobin Sodium Potassium Chloride Carbon Dioxide BUN Creatinine Glucose POC Glucose 146 H 125 H 131 H Lactic Acid Calcium Ionized Calcium Phosphorus Magnesium Total Bilirubin AST ALT Alkaline Phosphatase Ammonia Total Creatine Kinase CK-MB (CK-2) CK-MB (CK-2) Rel Index Total Protein Albumin Urine WBC (Auto) Vancomycin Trough Salicylates Acetaminophen Plasma/Serum Alcohol Crossmatch 01/13/20 01/13/20 01/13/20 05:44 11:54 17:18 WBC RBC Hgb Hct MCH RDW Plt Count Lymph % (Auto) [place] % (Auto) [place] # Baso # Seg Neutrophils % Seg Neuts % (Manual) Lymphocytes % (Manual) Monocytes % (Manual) Seg Neutrophils # Seg Neutrophils # Man Lymphocytes # (Manual) Monocytes # (Manual) Eosinophils # (Manual) Basophils # (Manual) PT INR APTT ABG pH ABG pO2 ABG HCO3 ABG O2 Saturation ABG Base Excess ABG Hemoglobin Oxyhemoglobin Sodium Potassium Chloride Carbon Dioxide BUN Creatinine Glucose POC Glucose 148 H 140 H 130 H Lactic Acid Calcium Ionized Calcium Phosphorus Magnesium Total Bilirubin AST ALT Alkaline Phosphatase Ammonia Total Creatine Kinase CK-MB (CK-2) CK-MB (CK-2) Rel Index Total Protein Albumin Urine WBC (Auto) Vancomycin Trough Salicylates Acetaminophen Plasma/Serum Alcohol Crossmatch 01/14/20 01/14/20 01/14/20 00:16 05:45 12:19 WBC RBC Hgb Hct MCH RDW Plt Count Lymph % (Auto) [place] % (Auto) [place] # Baso # Seg Neutrophils % Seg Neuts % (Manual) Lymphocytes % (Manual) Monocytes % (Manual) Seg Neutrophils # Seg Neutrophils # Man Lymphocytes # (Manual) Monocytes # (Manual) Eosinophils # (Manual) Basophils # (Manual) PT INR APTT ABG pH ABG pO2 ABG HCO3 ABG O2 Saturation ABG Base Excess ABG Hemoglobin Oxyhemoglobin Sodium Potassium Chloride Carbon Dioxide BUN Creatinine Glucose POC Glucose 125 H 146 H 147 H Lactic Acid Calcium Ionized Calcium Phosphorus Magnesium Total Bilirubin AST ALT Alkaline Phosphatase Ammonia Total Creatine Kinase CK-MB (CK-2) CK-MB (CK-2) Rel Index Total Protein Albumin Urine WBC (Auto) Vancomycin Trough Salicylates Acetaminophen Plasma/Serum Alcohol Crossmatch 01/14/20 01/14/20 01/15/20 18:10 23:54 05:14 WBC RBC Hgb Hct MCH RDW Plt Count Lymph % (Auto) [place] % (Auto) [place] # Baso # Seg Neutrophils % Seg Neuts % (Manual) Lymphocytes % (Manual) Monocytes % (Manual) Seg Neutrophils # Seg Neutrophils # Man Lymphocytes # (Manual) Monocytes # (Manual) Eosinophils # (Manual) Basophils # (Manual) PT INR APTT ABG pH ABG pO2 ABG HCO3 ABG O2 Saturation ABG Base Excess ABG Hemoglobin Oxyhemoglobin Sodium Potassium Chloride Carbon Dioxide BUN Creatinine Glucose POC Glucose 136 H 109 H 111 H Lactic Acid Calcium Ionized Calcium Phosphorus Magnesium Total Bilirubin AST ALT Alkaline Phosphatase Ammonia Total Creatine Kinase CK-MB (CK-2) CK-MB (CK-2) Rel Index Total Protein Albumin Urine WBC (Auto) Vancomycin Trough Salicylates Acetaminophen Plasma/Serum Alcohol Crossmatch 01/15/20 01/15/2020 12:34 23:25 05:06 WBC RBC Hgb Hct MCH RDW Plt Count Lymph % (Auto) [place] % (Auto) [place] # Baso # Seg Neutrophils % Seg Neuts % (Manual) Lymphocytes % (Manual) Monocytes % (Manual) Seg Neutrophils # Seg Neutrophils # Man Lymphocytes # (Manual) Monocytes # (Manual) Eosinophils # (Manual) Basophils # (Manual) PT INR APTT ABG pH ABG pO2 ABG HCO3 ABG O2 Saturation ABG Base Excess ABG Hemoglobin Oxyhemoglobin Sodium Potassium Chloride Carbon Dioxide BUN Creatinine Glucose POC Glucose 131 H 120 H 121 H Lactic Acid Calcium Ionized Calcium Phosphorus Magnesium Total Bilirubin AST ALT Alkaline Phosphatase Ammonia Total Creatine Kinase CK-MB (CK-2) CK-MB (CK-2) Rel Index Total Protein Albumin Urine WBC (Auto) Vancomycin Trough Salicylates Acetaminophen Plasma/Serum Alcohol Crossmatch 01/16/20 01/16/20 01/17/20 12:15 23:46 05:32 WBC 13.6 H RBC 3.27 L Hgb 9.3 L Hct 28.5 L MCH RDW 17.0 H Plt Count 490 H Lymph % (Auto) 13.1 L [place] % (Auto) [place] # 1.0 H Baso # Seg Neutrophils % 77.5 H Seg Neuts % (Manual) Lymphocytes % (Manual) Monocytes % (Manual) Seg Neutrophils # 10.5 H Seg Neutrophils # Man Lymphocytes # (Manual) Monocytes # (Manual) Eosinophils # (Manual) Basophils # (Manual) PT INR APTT ABG pH ABG pO2 ABG HCO3 ABG O2 Saturation ABG Base Excess ABG Hemoglobin Oxyhemoglobin Sodium Potassium Chloride Carbon Dioxide BUN Creatinine Glucose POC Glucose 152 H 107 H Lactic Acid Calcium Ionized Calcium Phosphorus Magnesium Total Bilirubin AST ALT Alkaline Phosphatase Ammonia Total Creatine Kinase CK-MB (CK-2) CK-MB (CK-2) Rel Index Total Protein Albumin Urine WBC (Auto) Vancomycin Trough Salicylates Acetaminophen Plasma/Serum Alcohol Crossmatch 01/17/20 01/17/20 01/17/20 06:47 12:16 17:21 WBC RBC Hgb Hct MCH RDW Plt Count Lymph % (Auto) [place] % (Auto) [place] # Baso # Seg Neutrophils % Seg Neuts % (Manual) Lymphocytes % (Manual) Monocytes % (Manual) Seg Neutrophils # Seg Neutrophils # Man Lymphocytes # (Manual) Monocytes # (Manual) Eosinophils # (Manual) Basophils # (Manual) PT INR APTT ABG pH ABG pO2 ABG HCO3 ABG O2 Saturation ABG Base Excess ABG Hemoglobin Oxyhemoglobin Sodium Potassium Chloride Carbon Dioxide BUN Creatinine Glucose POC Glucose 112 H 145 H 150 H Lactic Acid Calcium Ionized Calcium Phosphorus Magnesium Total Bilirubin AST ALT Alkaline Phosphatase Ammonia Total Creatine Kinase CK-MB (CK-2) CK-MB (CK-2) Rel Index Total Protein Albumin Urine WBC (Auto) Vancomycin Trough Salicylates Acetaminophen Plasma/Serum Alcohol Crossmatch 01/17/20 01/18/20 01/18/20 23:34 05:47 12:43 WBC RBC Hgb Hct MCH RDW Plt Count Lymph % (Auto) [place] % (Auto) [place] # Baso # Seg Neutrophils % Seg Neuts % (Manual) Lymphocytes % (Manual) Monocytes % (Manual) Seg Neutrophils # Seg Neutrophils # Man Lymphocytes # (Manual) Monocytes # (Manual) Eosinophils # (Manual) Basophils # (Manual) PT INR APTT ABG pH ABG pO2 ABG HCO3 ABG O2 Saturation ABG Base Excess ABG Hemoglobin Oxyhemoglobin Sodium Potassium Chloride Carbon Dioxide BUN Creatinine Glucose POC Glucose 160 H 130 H 124 H Lactic Acid Calcium Ionized Calcium Phosphorus Magnesium Total Bilirubin AST ALT Alkaline Phosphatase Ammonia Total Creatine Kinase CK-MB (CK-2) CK-MB (CK-2) Rel Index Total Protein Albumin Urine WBC (Auto) Vancomycin Trough Salicylates Acetaminophen Plasma/Serum Alcohol Crossmatch 01/18/20 01/19/20 01/19/20 18:26 00:14 06:24 WBC RBC Hgb Hct MCH RDW Plt Count Lymph % (Auto) [place] % (Auto) [place] # Baso # Seg Neutrophils % Seg Neuts % (Manual) Lymphocytes % (Manual) Monocytes % (Manual) Seg Neutrophils # Seg Neutrophils # Man Lymphocytes # (Manual) Monocytes # (Manual) Eosinophils # (Manual) Basophils # (Manual) PT INR APTT ABG pH ABG pO2 ABG HCO3 ABG O2 Saturation ABG Base Excess ABG Hemoglobin Oxyhemoglobin Sodium Potassium Chloride Carbon Dioxide BUN Creatinine Glucose POC Glucose 119 H 114 H 144 H Lactic Acid Calcium Ionized Calcium Phosphorus Magnesium Total Bilirubin AST ALT Alkaline Phosphatase Ammonia Total Creatine Kinase CK-MB (CK-2) CK-MB (CK-2) Rel Index Total Protein Albumin Urine WBC (Auto) Vancomycin Trough Salicylates Acetaminophen Plasma/Serum Alcohol Crossmatch 01/19/20 01/19/20 01/20/20 12:24 17:50 12:06 WBC RBC Hgb Hct MCH RDW Plt Count Lymph % (Auto) [place] % (Auto) [place] # Baso # Seg Neutrophils % Seg Neuts % (Manual) Lymphocytes % (Manual) Monocytes % (Manual) Seg Neutrophils # Seg Neutrophils # Man Lymphocytes # (Manual) Monocytes # (Manual) Eosinophils # (Manual) Basophils # (Manual) PT INR APTT ABG pH ABG pO2 ABG HCO3 ABG O2 Saturation ABG Base Excess ABG Hemoglobin Oxyhemoglobin Sodium Potassium Chloride Carbon Dioxide BUN Creatinine Glucose POC Glucose 132 H 144 H 135 H Lactic Acid Calcium Ionized Calcium Phosphorus Magnesium Total Bilirubin AST ALT Alkaline Phosphatase Ammonia Total Creatine Kinase CK-MB (CK-2) CK-MB (CK-2) Rel Index Total Protein Albumin Urine WBC (Auto) Vancomycin Trough Salicylates Acetaminophen Plasma/Serum Alcohol Crossmatch 01/21/20 01/21/20 01/21/20 05:46 13:02 23:49 WBC RBC Hgb Hct MCH RDW Plt Count Lymph % (Auto) [place] % (Auto) [place] # Baso # Seg Neutrophils % Seg Neuts % (Manual) Lymphocytes % (Manual) Monocytes % (Manual) Seg Neutrophils # Seg Neutrophils # Man Lymphocytes # (Manual) Monocytes # (Manual) Eosinophils # (Manual) Basophils # (Manual) PT INR APTT ABG pH ABG pO2 ABG HCO3 ABG O2 Saturation ABG Base Excess ABG Hemoglobin Oxyhemoglobin Sodium Potassium Chloride Carbon Dioxide BUN Creatinine Glucose POC Glucose 114 H 136 H 120 H Lactic Acid Calcium Ionized Calcium Phosphorus Magnesium Total Bilirubin AST ALT Alkaline Phosphatase Ammonia Total Creatine Kinase CK-MB (CK-2) CK-MB (CK-2) Rel Index Total Protein Albumin Urine WBC (Auto) Vancomycin Trough Salicylates Acetaminophen Plasma/Serum Alcohol Crossmatch 01/22/20 01/22/20 01/22/20 05:41 11:44 16:31 WBC RBC Hgb Hct MCH RDW Plt Count Lymph % (Auto) [place] % (Auto) [place] # Baso # Seg Neutrophils % Seg Neuts % (Manual) Lymphocytes % (Manual) Monocytes % (Manual) Seg Neutrophils # Seg Neutrophils # Man Lymphocytes # (Manual) Monocytes # (Manual) Eosinophils # (Manual) Basophils # (Manual) PT INR APTT ABG pH ABG pO2 ABG HCO3 ABG O2 Saturation ABG Base Excess ABG Hemoglobin Oxyhemoglobin Sodium Potassium Chloride Carbon Dioxide BUN Creatinine Glucose POC Glucose 124 H 173 H 111 H Lactic Acid Calcium Ionized Calcium Phosphorus Magnesium Total Bilirubin AST ALT Alkaline Phosphatase Ammonia Total Creatine Kinase CK-MB (CK-2) CK-MB (CK-2) Rel Index Total Protein Albumin Urine WBC (Auto) Vancomycin Trough Salicylates Acetaminophen Plasma/Serum Alcohol Crossmatch 01/22/20 01/23/20 01/23/20 23:25 05:15 12:15 WBC RBC Hgb Hct MCH RDW Plt Count Lymph % (Auto) [place] % (Auto) [place] # Baso # Seg Neutrophils % Seg Neuts % (Manual) Lymphocytes % (Manual) Monocytes % (Manual) Seg Neutrophils # Seg Neutrophils # Man Lymphocytes # (Manual) Monocytes # (Manual) Eosinophils # (Manual) Basophils # (Manual) PT INR APTT ABG pH ABG pO2 ABG HCO3 ABG O2 Saturation ABG Base Excess ABG Hemoglobin Oxyhemoglobin Sodium Potassium Chloride Carbon Dioxide BUN Creatinine Glucose POC Glucose 134 H 117 H 129 H Lactic Acid Calcium Ionized Calcium Phosphorus Magnesium Total Bilirubin AST ALT Alkaline Phosphatase Ammonia Total Creatine Kinase CK-MB (CK-2) CK-MB (CK-2) Rel Index Total Protein Albumin Urine WBC (Auto) Vancomycin Trough Salicylates Acetaminophen Plasma/Serum Alcohol Crossmatch 01/23/20 01/23/20 01/23/20 16:58 21:17 23:47 WBC RBC Hgb Hct MCH RDW Plt Count Lymph % (Auto) [place] % (Auto) [place] # Baso # Seg Neutrophils % Seg Neuts % (Manual) Lymphocytes % (Manual) Monocytes % (Manual) Seg Neutrophils # Seg Neutrophils # Man Lymphocytes # (Manual) Monocytes # (Manual) Eosinophils # (Manual) Basophils # (Manual) PT INR APTT ABG pH ABG pO2 ABG HCO3 ABG O2 Saturation ABG Base Excess ABG Hemoglobin Oxyhemoglobin Sodium Potassium Chloride Carbon Dioxide BUN Creatinine Glucose POC Glucose 156 H 185 H 156 H Lactic Acid Calcium Ionized Calcium Phosphorus Magnesium Total Bilirubin AST ALT Alkaline Phosphatase Ammonia Total Creatine Kinase CK-MB (CK-2) CK-MB (CK-2) Rel Index Total Protein Albumin Urine WBC (Auto) Vancomycin Trough Salicylates Acetaminophen Plasma/Serum Alcohol Crossmatch 01/24/20 01/24/20 01/24/20 04:47 04:47 05:59 WBC 17.8 H RBC 3.60 L Hgb Hct MCH RDW 16.2 H Plt Count 688 H Lymph % (Auto) 11.8 L [place] % (Auto) 7.5 H [place] # 1.3 H Baso # Seg Neutrophils % 79.9 H Seg Neuts % (Manual) Lymphocytes % (Manual) Monocytes % (Manual) Seg Neutrophils # 14.2 H Seg Neutrophils # Man Lymphocytes # (Manual) Monocytes # (Manual) Eosinophils # (Manual) Basophils # (Manual) PT INR APTT ABG pH ABG pO2 ABG HCO3 ABG O2 Saturation ABG Base Excess ABG Hemoglobin Oxyhemoglobin Sodium 131 L Potassium Chloride 91.2 L Carbon Dioxide BUN 22 H Creatinine 0.3 L Glucose 123 H POC Glucose 147 H Lactic Acid Calcium 10.9 H Ionized Calcium Phosphorus Magnesium Total Bilirubin AST ALT Alkaline Phosphatase Ammonia Total Creatine Kinase CK-MB (CK-2) CK-MB (CK-2) Rel Index Total Protein Albumin Urine WBC (Auto) Vancomycin Trough Salicylates Acetaminophen Plasma/Serum Alcohol Crossmatch 01/24/20 01/24/20 01/25/20 11:47 16:45 00:18 WBC RBC Hgb Hct MCH RDW Plt Count Lymph % (Auto) [place] % (Auto) [place] # Baso # Seg Neutrophils % Seg Neuts % (Manual) Lymphocytes % (Manual) Monocytes % (Manual) Seg Neutrophils # Seg Neutrophils # Man Lymphocytes # (Manual) Monocytes # (Manual) Eosinophils # (Manual) Basophils # (Manual) PT INR APTT ABG pH ABG pO2 ABG HCO3 ABG O2 Saturation ABG Base Excess ABG Hemoglobin Oxyhemoglobin Sodium Potassium Chloride Carbon Dioxide BUN Creatinine Glucose POC Glucose 114 H 108 H 119 H Lactic Acid Calcium Ionized Calcium Phosphorus Magnesium Total Bilirubin AST ALT Alkaline Phosphatase Ammonia Total Creatine Kinase CK-MB (CK-2) CK-MB (CK-2) Rel Index Total Protein Albumin Urine WBC (Auto) Vancomycin Trough Salicylates Acetaminophen Plasma/Serum Alcohol Crossmatch 01/25/20 01/25/20 01/25/20 07:18 11:58 16:56 WBC RBC Hgb Hct MCH RDW Plt Count Lymph % (Auto) [place] % (Auto) [place] # Baso # Seg Neutrophils % Seg Neuts % (Manual) Lymphocytes % (Manual) Monocytes % (Manual) Seg Neutrophils # Seg Neutrophils # Man Lymphocytes # (Manual) Monocytes # (Manual) Eosinophils # (Manual) Basophils # (Manual) PT INR APTT ABG pH ABG pO2 ABG HCO3 ABG O2 Saturation ABG Base Excess ABG Hemoglobin Oxyhemoglobin Sodium Potassium Chloride Carbon Dioxide BUN Creatinine Glucose POC Glucose 136 H 136 H 147 H Lactic Acid Calcium Ionized Calcium Phosphorus Magnesium Total Bilirubin AST ALT Alkaline Phosphatase Ammonia Total Creatine Kinase CK-MB (CK-2) CK-MB (CK-2) Rel Index Total Protein Albumin Urine WBC (Auto) Vancomycin Trough Salicylates Acetaminophen Plasma/Serum Alcohol Crossmatch 01/26/20 01/26/20 01/26/20 00:29 05:59 05:59 WBC 12.8 H RBC Hgb Hct MCH RDW 16.4 H Plt Count 743 H Lymph % (Auto) [place] % (Auto) [place] # 0.9 H Baso # Seg Neutrophils % 76.2 H Seg Neuts % (Manual) Lymphocytes % (Manual) Monocytes % (Manual) Seg Neutrophils # 9.8 H Seg Neutrophils # Man Lymphocytes # (Manual) Monocytes # (Manual) Eosinophils # (Manual) Basophils # (Manual) PT INR APTT ABG pH ABG pO2 ABG HCO3 ABG O2 Saturation ABG Base Excess ABG Hemoglobin Oxyhemoglobin Sodium 132 L Potassium Chloride 90.9 L Carbon Dioxide BUN 23 H Creatinine 0.4 L Glucose 122 H POC Glucose 107 H Lactic Acid Calcium 11.0 H Ionized Calcium Phosphorus Magnesium Total Bilirubin AST ALT Alkaline Phosphatase Ammonia Total Creatine Kinase CK-MB (CK-2) CK-MB (CK-2) Rel Index Total Protein Albumin Urine WBC (Auto) Vancomycin Trough Salicylates Acetaminophen Plasma/Serum Alcohol Crossmatch 01/26/20 01/26/20 01/26/20 06:27 12:06 16:49 WBC RBC Hgb Hct MCH RDW Plt Count Lymph % (Auto) [place] % (Auto) [place] # Baso # Seg Neutrophils % Seg Neuts % (Manual) Lymphocytes % (Manual) Monocytes % (Manual) Seg Neutrophils # Seg Neutrophils # Man Lymphocytes # (Manual) Monocytes # (Manual) Eosinophils # (Manual) Basophils # (Manual) PT INR APTT ABG pH ABG pO2 ABG HCO3 ABG O2 Saturation ABG Base Excess ABG Hemoglobin Oxyhemoglobin Sodium Potassium Chloride Carbon Dioxide BUN Creatinine Glucose POC Glucose 132 H 132 H 110 H Lactic Acid Calcium Ionized Calcium Phosphorus Magnesium Total Bilirubin AST ALT Alkaline Phosphatase Ammonia Total Creatine Kinase CK-MB (CK-2) CK-MB (CK-2) Rel Index Total Protein Albumin Urine WBC (Auto) Vancomycin Trough Salicylates Acetaminophen Plasma/Serum Alcohol Crossmatch 01/27/20 01/27/20 01/27/20 00:08 11:49 16:24 WBC RBC Hgb Hct MCH RDW Plt Count Lymph % (Auto) [place] % (Auto) [place] # Baso # Seg Neutrophils % Seg Neuts % (Manual) Lymphocytes % (Manual) Monocytes % (Manual) Seg Neutrophils # Seg Neutrophils # Man Lymphocytes # (Manual) Monocytes # (Manual) Eosinophils # (Manual) Basophils # (Manual) PT INR APTT ABG pH ABG pO2 ABG HCO3 ABG O2 Saturation ABG Base Excess ABG Hemoglobin Oxyhemoglobin Sodium Potassium Chloride Carbon Dioxide BUN Creatinine Glucose POC Glucose 107 H 119 H 129 H Lactic Acid Calcium Ionized Calcium Phosphorus Magnesium Total Bilirubin AST ALT Alkaline Phosphatase Ammonia Total Creatine Kinase CK-MB (CK-2) CK-MB (CK-2) Rel Index Total Protein Albumin Urine WBC (Auto) Vancomycin Trough Salicylates Acetaminophen Plasma/Serum Alcohol Crossmatch 01/27/20 01/28/20 01/28/20 18:28 01:00 06:22 WBC RBC Hgb Hct MCH RDW Plt Count Lymph % (Auto) [place] % (Auto) [place] # Baso # Seg Neutrophils % Seg Neuts % (Manual) Lymphocytes % (Manual) Monocytes % (Manual) Seg Neutrophils # Seg Neutrophils # Man Lymphocytes # (Manual) Monocytes # (Manual) Eosinophils # (Manual) Basophils # (Manual) PT INR APTT ABG pH ABG pO2 ABG HCO3 ABG O2 Saturation ABG Base Excess ABG Hemoglobin Oxyhemoglobin Sodium Potassium Chloride Carbon Dioxide BUN Creatinine Glucose POC Glucose 126 H 121 H 114 H Lactic Acid Calcium Ionized Calcium Phosphorus Magnesium Total Bilirubin AST ALT Alkaline Phosphatase Ammonia Total Creatine Kinase CK-MB (CK-2) CK-MB (CK-2) Rel Index Total Protein Albumin Urine WBC (Auto) Vancomycin Trough Salicylates Acetaminophen Plasma/Serum Alcohol Crossmatch 01/28/20 01/28/20 01/29/20 11:47 18:00 00:05 WBC RBC Hgb Hct MCH RDW Plt Count Lymph % (Auto) [place] % (Auto) [place] # Baso # Seg Neutrophils % Seg Neuts % (Manual) Lymphocytes % (Manual) Monocytes % (Manual) Seg Neutrophils # Seg Neutrophils # Man Lymphocytes # (Manual) Monocytes # (Manual) Eosinophils # (Manual) Basophils # (Manual) PT INR APTT ABG pH ABG pO2 ABG HCO3 ABG O2 Saturation ABG Base Excess ABG Hemoglobin Oxyhemoglobin Sodium Potassium Chloride Carbon Dioxide BUN Creatinine Glucose POC Glucose 106 H 117 H 127 H Lactic Acid Calcium Ionized Calcium Phosphorus Magnesium Total Bilirubin AST ALT Alkaline Phosphatase Ammonia Total Creatine Kinase CK-MB (CK-2) CK-MB (CK-2) Rel Index Total Protein Albumin Urine WBC (Auto) Vancomycin Trough Salicylates Acetaminophen Plasma/Serum Alcohol Crossmatch 01/29/20 01/29/20 01/29/20 06:04 11:40 16:38 WBC RBC Hgb Hct MCH RDW Plt Count Lymph % (Auto) [place] % (Auto) [place] # Baso # Seg Neutrophils % Seg Neuts % (Manual) Lymphocytes % (Manual) Monocytes % (Manual) Seg Neutrophils # Seg Neutrophils # Man Lymphocytes # (Manual) Monocytes # (Manual) Eosinophils # (Manual) Basophils # (Manual) PT INR APTT ABG pH ABG pO2 ABG HCO3 ABG O2 Saturation ABG Base Excess ABG Hemoglobin Oxyhemoglobin Sodium Potassium Chloride Carbon Dioxide BUN Creatinine Glucose POC Glucose 147 H 139 H 143 H Lactic Acid Calcium Ionized Calcium Phosphorus Magnesium Total Bilirubin AST ALT Alkaline Phosphatase Ammonia Total Creatine Kinase CK-MB (CK-2) CK-MB (CK-2) Rel Index Total Protein Albumin Urine WBC (Auto) Vancomycin Trough Salicylates Acetaminophen Plasma/Serum Alcohol Crossmatch 01/29/20 01/30/20 01/30/20 23:46 06:43 12:07 WBC RBC Hgb Hct MCH RDW Plt Count Lymph % (Auto) [place] % (Auto) [place] # Baso # Seg Neutrophils % Seg Neuts % (Manual) Lymphocytes % (Manual) Monocytes % (Manual) Seg Neutrophils # Seg Neutrophils # Man Lymphocytes # (Manual) Monocytes # (Manual) Eosinophils # (Manual) Basophils # (Manual) PT INR APTT ABG pH ABG pO2 ABG HCO3 ABG O2 Saturation ABG Base Excess ABG Hemoglobin Oxyhemoglobin Sodium Potassium Chloride Carbon Dioxide BUN Creatinine Glucose POC Glucose 122 H 122 H 134 H Lactic Acid Calcium Ionized Calcium Phosphorus Magnesium Total Bilirubin AST ALT Alkaline Phosphatase Ammonia Total Creatine Kinase CK-MB (CK-2) CK-MB (CK-2) Rel Index Total Protein Albumin Urine WBC (Auto) Vancomycin Trough Salicylates Acetaminophen Plasma/Serum Alcohol Crossmatch 01/30/20 01/31/20 01/31/20 17:59 00:52 05:54 WBC RBC Hgb Hct MCH RDW Plt Count Lymph % (Auto) [place] % (Auto) [place] # Baso # Seg Neutrophils % Seg Neuts % (Manual) Lymphocytes % (Manual) Monocytes % (Manual) Seg Neutrophils # Seg Neutrophils # Man Lymphocytes # (Manual) Monocytes # (Manual) Eosinophils # (Manual) Basophils # (Manual) PT INR APTT ABG pH ABG pO2 ABG HCO3 ABG O2 Saturation ABG Base Excess ABG Hemoglobin Oxyhemoglobin Sodium Potassium Chloride Carbon Dioxide BUN Creatinine Glucose POC Glucose 116 H 127 H 127 H Lactic Acid Calcium Ionized Calcium Phosphorus Magnesium Total Bilirubin AST ALT Alkaline Phosphatase Ammonia Total Creatine Kinase CK-MB (CK-2) CK-MB (CK-2) Rel Index Total Protein Albumin Urine WBC (Auto) Vancomycin Trough Salicylates Acetaminophen Plasma/Serum Alcohol Crossmatch 01/31/20 02/01/20 02/01/20 12:20 00:48 12:21 WBC RBC Hgb Hct MCH RDW Plt Count Lymph % (Auto) [place] % (Auto) [place] # Baso # Seg Neutrophils % Seg Neuts % (Manual) Lymphocytes % (Manual) Monocytes % (Manual) Seg Neutrophils # Seg Neutrophils # Man Lymphocytes # (Manual) Monocytes # (Manual) Eosinophils # (Manual) Basophils # (Manual) PT INR APTT ABG pH ABG pO2 ABG HCO3 ABG O2 Saturation ABG Base Excess ABG Hemoglobin Oxyhemoglobin Sodium Potassium Chloride Carbon Dioxide BUN Creatinine Glucose POC Glucose 126 H 154 H 123 H Lactic Acid Calcium Ionized Calcium Phosphorus Magnesium Total Bilirubin AST ALT Alkaline Phosphatase Ammonia Total Creatine Kinase CK-MB (CK-2) CK-MB (CK-2) Rel Index Total Protein Albumin Urine WBC (Auto) Vancomycin Trough Salicylates Acetaminophen Plasma/Serum Alcohol Crossmatch 02/01/20 02/02/20 02/02/20 23:58 06:08 11:50 WBC RBC Hgb Hct MCH RDW Plt Count Lymph % (Auto) [place] % (Auto) [place] # Baso # Seg Neutrophils % Seg Neuts % (Manual) Lymphocytes % (Manual) Monocytes % (Manual) Seg Neutrophils # Seg Neutrophils # Man Lymphocytes # (Manual) Monocytes # (Manual) Eosinophils # (Manual) Basophils # (Manual) PT INR APTT ABG pH ABG pO2 ABG HCO3 ABG O2 Saturation ABG Base Excess ABG Hemoglobin Oxyhemoglobin Sodium Potassium Chloride Carbon Dioxide BUN Creatinine Glucose POC Glucose 125 H 144 H 131 H Lactic Acid Calcium Ionized Calcium Phosphorus Magnesium Total Bilirubin AST ALT Alkaline Phosphatase Ammonia Total Creatine Kinase CK-MB (CK-2) CK-MB (CK-2) Rel Index Total Protein Albumin Urine WBC (Auto) Vancomycin Trough Salicylates Acetaminophen Plasma/Serum Alcohol Crossmatch 02/02/20 02/03/20 02/03/20 17:53 00:14 05:47 WBC RBC Hgb Hct MCH RDW Plt Count Lymph % (Auto) [place] % (Auto) [place] # Baso # Seg Neutrophils % Seg Neuts % (Manual) Lymphocytes % (Manual) Monocytes % (Manual) Seg Neutrophils # Seg Neutrophils # Man Lymphocytes # (Manual) Monocytes # (Manual) Eosinophils # (Manual) Basophils # (Manual) PT INR APTT ABG pH ABG pO2 ABG HCO3 ABG O2 Saturation ABG Base Excess ABG Hemoglobin Oxyhemoglobin Sodium Potassium Chloride Carbon Dioxide BUN Creatinine Glucose POC Glucose 108 H 122 H 118 H Lactic Acid Calcium Ionized Calcium Phosphorus Magnesium Total Bilirubin AST ALT Alkaline Phosphatase Ammonia Total Creatine Kinase CK-MB (CK-2) CK-MB (CK-2) Rel Index Total Protein Albumin Urine WBC (Auto) Vancomycin Trough Salicylates Acetaminophen Plasma/Serum Alcohol Crossmatch 02/03/20 02/03/20 02/03/20 05:59 05:59 11:49 WBC RBC 3.48 L Hgb Hct 29.9 L MCH RDW 16.2 H Plt Count 707 H Lymph % (Auto) [place] % (Auto) 9.3 H [place] # 0.9 H Baso # Seg Neutrophils % Seg Neuts % (Manual) Lymphocytes % (Manual) Monocytes % (Manual) Seg Neutrophils # Seg Neutrophils # Man Lymphocytes # (Manual) Monocytes # (Manual) Eosinophils # (Manual) Basophils # (Manual) PT INR APTT ABG pH ABG pO2 ABG HCO3 ABG O2 Saturation ABG Base Excess ABG Hemoglobin Oxyhemoglobin Sodium 136 L Potassium Chloride 93.4 L Carbon Dioxide BUN 20 H Creatinine 0.5 L Glucose 101 H POC Glucose 133 H Lactic Acid Calcium 10.8 H Ionized Calcium Phosphorus Magnesium Total Bilirubin AST ALT Alkaline Phosphatase Ammonia Total Creatine Kinase CK-MB (CK-2) CK-MB (CK-2) Rel Index Total Protein Albumin Urine WBC (Auto) Vancomycin Trough Salicylates Acetaminophen Plasma/Serum Alcohol Crossmatch 02/03/20 02/04/20 02/04/20 23:19 05:37 23:56 WBC RBC Hgb Hct MCH RDW Plt Count Lymph % (Auto) [place] % (Auto) [place] # Baso # Seg Neutrophils % Seg Neuts % (Manual) Lymphocytes % (Manual) Monocytes % (Manual) Seg Neutrophils # Seg Neutrophils # Man Lymphocytes # (Manual) Monocytes # (Manual) Eosinophils # (Manual) Basophils # (Manual) PT INR APTT ABG pH ABG pO2 ABG HCO3 ABG O2 Saturation ABG Base Excess ABG Hemoglobin Oxyhemoglobin Sodium Potassium Chloride Carbon Dioxide BUN Creatinine Glucose POC Glucose 135 H 108 H 158 H Lactic Acid Calcium Ionized Calcium Phosphorus Magnesium Total Bilirubin AST ALT Alkaline Phosphatase Ammonia Total Creatine Kinase CK-MB (CK-2) CK-MB (CK-2) Rel Index Total Protein Albumin Urine WBC (Auto) Vancomycin Trough Salicylates Acetaminophen Plasma/Serum Alcohol Crossmatch 02/05/20 02/05/20 02/06/20 05:33 23:24 05:50 WBC RBC Hgb Hct MCH RDW Plt Count Lymph % (Auto) [place] % (Auto) [place] # Baso # Seg Neutrophils % Seg Neuts % (Manual) Lymphocytes % (Manual) Monocytes % (Manual) Seg Neutrophils # Seg Neutrophils # Man Lymphocytes # (Manual) Monocytes # (Manual) Eosinophils # (Manual) Basophils # (Manual) PT INR APTT ABG pH ABG pO2 ABG HCO3 ABG O2 Saturation ABG Base Excess ABG Hemoglobin Oxyhemoglobin Sodium Potassium Chloride Carbon Dioxide BUN Creatinine Glucose POC Glucose 152 H 158 H 110 H Lactic Acid Calcium Ionized Calcium Phosphorus Magnesium Total Bilirubin AST ALT Alkaline Phosphatase Ammonia Total Creatine Kinase CK-MB (CK-2) CK-MB (CK-2) Rel Index Total Protein Albumin Urine WBC (Auto) Vancomycin Trough Salicylates Acetaminophen Plasma/Serum Alcohol Crossmatch 02/06/20 02/07/20 02/07/20 16:03 00:13 05:27 WBC RBC Hgb Hct MCH RDW Plt Count Lymph % (Auto) [place] % (Auto) [place] # Baso # Seg Neutrophils % Seg Neuts % (Manual) Lymphocytes % (Manual) Monocytes % (Manual) Seg Neutrophils # Seg Neutrophils # Man Lymphocytes # (Manual) Monocytes # (Manual) Eosinophils # (Manual) Basophils # (Manual) PT INR APTT ABG pH ABG pO2 ABG HCO3 ABG O2 Saturation ABG Base Excess ABG Hemoglobin Oxyhemoglobin Sodium Potassium Chloride Carbon Dioxide BUN Creatinine Glucose POC Glucose 130 H 115 H 115 H Lactic Acid Calcium Ionized Calcium Phosphorus Magnesium Total Bilirubin AST ALT Alkaline Phosphatase Ammonia Total Creatine Kinase CK-MB (CK-2) CK-MB (CK-2) Rel Index Total Protein Albumin Urine WBC (Auto) Vancomycin Trough Salicylates Acetaminophen Plasma/Serum Alcohol Crossmatch 02/07/20 02/07/20 02/08/20 11:42 17:23 00:37 WBC RBC Hgb Hct MCH RDW Plt Count Lymph % (Auto) [place] % (Auto) [place] # Baso # Seg Neutrophils % Seg Neuts % (Manual) Lymphocytes % (Manual) Monocytes % (Manual) Seg Neutrophils # Seg Neutrophils # Man Lymphocytes # (Manual) Monocytes # (Manual) Eosinophils # (Manual) Basophils # (Manual) PT INR APTT ABG pH ABG pO2 ABG HCO3 ABG O2 Saturation ABG Base Excess ABG Hemoglobin Oxyhemoglobin Sodium Potassium Chloride Carbon Dioxide BUN Creatinine Glucose POC Glucose 113 H 114 H 136 H Lactic Acid Calcium Ionized Calcium Phosphorus Magnesium Total Bilirubin AST ALT Alkaline Phosphatase Ammonia Total Creatine Kinase CK-MB (CK-2) CK-MB (CK-2) Rel Index Total Protein Albumin Urine WBC (Auto) Vancomycin Trough Salicylates Acetaminophen Plasma/Serum Alcohol Crossmatch 02/08/20 02/08/20 02/08/20 08:52 11:42 17:02 WBC RBC Hgb Hct MCH RDW Plt Count Lymph % (Auto) [place] % (Auto) [place] # Baso # Seg Neutrophils % Seg Neuts % (Manual) Lymphocytes % (Manual) Monocytes % (Manual) Seg Neutrophils # Seg Neutrophils # Man Lymphocytes # (Manual) Monocytes # (Manual) Eosinophils # (Manual) Basophils # (Manual) PT INR APTT ABG pH ABG pO2 ABG HCO3 ABG O2 Saturation ABG Base Excess ABG Hemoglobin Oxyhemoglobin Sodium 136 L Potassium Chloride 95.7 L Carbon Dioxide BUN 21 H Creatinine 0.4 L Glucose POC Glucose 128 H 145 H Lactic Acid Calcium 10.4 H Ionized Calcium Phosphorus Magnesium Total Bilirubin AST ALT Alkaline Phosphatase Ammonia Total Creatine Kinase CK-MB (CK-2) CK-MB (CK-2) Rel Index Total Protein Albumin Urine WBC (Auto) Vancomycin Trough Salicylates Acetaminophen Plasma/Serum Alcohol Crossmatch 02/09/20 02/09/20 02/09/20 01:05 11:52 16:19 WBC RBC Hgb Hct MCH RDW Plt Count Lymph % (Auto) [place] % (Auto) [place] # Baso # Seg Neutrophils % Seg Neuts % (Manual) Lymphocytes % (Manual) Monocytes % (Manual) Seg Neutrophils # Seg Neutrophils # Man Lymphocytes # (Manual) Monocytes # (Manual) Eosinophils # (Manual) Basophils # (Manual) PT INR APTT ABG pH ABG pO2 ABG HCO3 ABG O2 Saturation ABG Base Excess ABG Hemoglobin Oxyhemoglobin Sodium Potassium Chloride Carbon Dioxide BUN Creatinine Glucose POC Glucose 117 H 141 H 113 H Lactic Acid Calcium Ionized Calcium Phosphorus Magnesium Total Bilirubin AST ALT Alkaline Phosphatase Ammonia Total Creatine Kinase CK-MB (CK-2) CK-MB (CK-2) Rel Index Total Protein Albumin Urine WBC (Auto) Vancomycin Trough Salicylates Acetaminophen Plasma/Serum Alcohol Crossmatch 02/10/20 02/10/20 02/10/20 05:25 12:50 17:08 WBC RBC Hgb Hct MCH RDW Plt Count Lymph % (Auto) [place] % (Auto) [place] # Baso # Seg Neutrophils % Seg Neuts % (Manual) Lymphocytes % (Manual) Monocytes % (Manual) Seg Neutrophils # Seg Neutrophils # Man Lymphocytes # (Manual) Monocytes # (Manual) Eosinophils # (Manual) Basophils # (Manual) PT INR APTT ABG pH ABG pO2 ABG HCO3 ABG O2 Saturation ABG Base Excess ABG Hemoglobin Oxyhemoglobin Sodium Potassium Chloride Carbon Dioxide BUN Creatinine Glucose POC Glucose 136 H 127 H 111 H Lactic Acid Calcium Ionized Calcium Phosphorus Magnesium Total Bilirubin AST ALT Alkaline Phosphatase Ammonia Total Creatine Kinase CK-MB (CK-2) CK-MB (CK-2) Rel Index Total Protein Albumin Urine WBC (Auto) Vancomycin Trough Salicylates Acetaminophen Plasma/Serum Alcohol Crossmatch 02/10/20 02/11/20 02/11/20 23:55 06:11 12:07 WBC RBC Hgb Hct MCH RDW Plt Count Lymph % (Auto) [place] % (Auto) [place] # Baso # Seg Neutrophils % Seg Neuts % (Manual) Lymphocytes % (Manual) Monocytes % (Manual) Seg Neutrophils # Seg Neutrophils # Man Lymphocytes # (Manual) Monocytes # (Manual) Eosinophils # (Manual) Basophils # (Manual) PT INR APTT ABG pH ABG pO2 ABG HCO3 ABG O2 Saturation ABG Base Excess ABG Hemoglobin Oxyhemoglobin Sodium Potassium Chloride Carbon Dioxide BUN Creatinine Glucose POC Glucose 129 H 128 H 141 H Lactic Acid Calcium Ionized Calcium Phosphorus Magnesium Total Bilirubin AST ALT Alkaline Phosphatase Ammonia Total Creatine Kinase CK-MB (CK-2) CK-MB (CK-2) Rel Index Total Protein Albumin Urine WBC (Auto) Vancomycin Trough Salicylates Acetaminophen Plasma/Serum Alcohol Crossmatch 02/11/20 02/12/20 02/13/20 18:22 02:39 06:45 WBC RBC Hgb Hct MCH RDW Plt Count Lymph % (Auto) [place] % (Auto) [place] # Baso # Seg Neutrophils % Seg Neuts % (Manual) Lymphocytes % (Manual) Monocytes % (Manual) Seg Neutrophils # Seg Neutrophils # Man Lymphocytes # (Manual) Monocytes # (Manual) Eosinophils # (Manual) Basophils # (Manual) PT INR APTT ABG pH ABG pO2 ABG HCO3 ABG O2 Saturation ABG Base Excess ABG Hemoglobin Oxyhemoglobin Sodium Potassium Chloride Carbon Dioxide BUN Creatinine Glucose POC Glucose 118 H 107 H 124 H Lactic Acid Calcium Ionized Calcium Phosphorus Magnesium Total Bilirubin AST ALT Alkaline Phosphatase Ammonia Total Creatine Kinase CK-MB (CK-2) CK-MB (CK-2) Rel Index Total Protein Albumin Urine WBC (Auto) Vancomycin Trough Salicylates Acetaminophen Plasma/Serum Alcohol Crossmatch 02/13/20 02/13/20 02/14/20 12:26 18:19 00:21 WBC RBC Hgb Hct MCH RDW Plt Count Lymph % (Auto) [place] % (Auto) [place] # Baso # Seg Neutrophils % Seg Neuts % (Manual) Lymphocytes % (Manual) Monocytes % (Manual) Seg Neutrophils # Seg Neutrophils # Man Lymphocytes # (Manual) Monocytes # (Manual) Eosinophils # (Manual) Basophils # (Manual) PT INR APTT ABG pH ABG pO2 ABG HCO3 ABG O2 Saturation ABG Base Excess ABG Hemoglobin Oxyhemoglobin Sodium Potassium Chloride Carbon Dioxide BUN Creatinine Glucose POC Glucose 124 H 118 H 130 H Lactic Acid Calcium Ionized Calcium Phosphorus Magnesium Total Bilirubin AST ALT Alkaline Phosphatase Ammonia Total Creatine Kinase CK-MB (CK-2) CK-MB (CK-2) Rel Index Total Protein Albumin Urine WBC (Auto) Vancomycin Trough Salicylates Acetaminophen Plasma/Serum Alcohol Crossmatch 02/14/20 02/14/20 02/16/20 11:19 16:16 00:58 WBC RBC Hgb Hct MCH RDW Plt Count Lymph % (Auto) [place] % (Auto) [place] # Baso # Seg Neutrophils % Seg Neuts % (Manual) Lymphocytes % (Manual) Monocytes % (Manual) Seg Neutrophils # Seg Neutrophils # Man Lymphocytes # (Manual) Monocytes # (Manual) Eosinophils # (Manual) Basophils # (Manual) PT INR APTT ABG pH ABG pO2 ABG HCO3 ABG O2 Saturation ABG Base Excess ABG Hemoglobin Oxyhemoglobin Sodium Potassium Chloride Carbon Dioxide BUN Creatinine Glucose POC Glucose 135 H 119 H 121 H Lactic Acid Calcium Ionized Calcium Phosphorus Magnesium Total Bilirubin AST ALT Alkaline Phosphatase Ammonia Total Creatine Kinase CK-MB (CK-2) CK-MB (CK-2) Rel Index Total Protein Albumin Urine WBC (Auto) Vancomycin Trough Salicylates Acetaminophen Plasma/Serum Alcohol Crossmatch 02/16/20 02/16/20 02/16/20 12:12 18:22 23:51 WBC RBC Hgb Hct MCH RDW Plt Count Lymph % (Auto) [place] % (Auto) [place] # Baso # Seg Neutrophils % Seg Neuts % (Manual) Lymphocytes % (Manual) Monocytes % (Manual) Seg Neutrophils # Seg Neutrophils # Man Lymphocytes # (Manual) Monocytes # (Manual) Eosinophils # (Manual) Basophils # (Manual) PT INR APTT ABG pH ABG pO2 ABG HCO3 ABG O2 Saturation ABG Base Excess ABG Hemoglobin Oxyhemoglobin Sodium Potassium Chloride Carbon Dioxide BUN Creatinine Glucose POC Glucose 107 H 106 H 128 H Lactic Acid Calcium Ionized Calcium Phosphorus Magnesium Total Bilirubin AST ALT Alkaline Phosphatase Ammonia Total Creatine Kinase CK-MB (CK-2) CK-MB (CK-2) Rel Index Total Protein Albumin Urine WBC (Auto) Vancomycin Trough Salicylates Acetaminophen Plasma/Serum Alcohol Crossmatch 02/17/20 02/17/20 02/17/20 05:50 07:57 07:57 WBC 12.6 H RBC 3.52 L Hgb Hct MCH RDW 15.3 H Plt Count 643 H Lymph % (Auto) [place] % (Auto) 8.0 H [place] # 1.0 H Baso # Seg Neutrophils % Seg Neuts % (Manual) Lymphocytes % (Manual) Monocytes % (Manual) Seg Neutrophils # 8.5 H Seg Neutrophils # Man Lymphocytes # (Manual) Monocytes # (Manual) Eosinophils # (Manual) Basophils # (Manual) PT INR APTT ABG pH ABG pO2 ABG HCO3 ABG O2 Saturation ABG Base Excess ABG Hemoglobin Oxyhemoglobin Sodium Potassium Chloride 96.9 L Carbon Dioxide BUN 21 H Creatinine 0.4 L Glucose 113 H POC Glucose 116 H Lactic Acid Calcium 10.5 H Ionized Calcium Phosphorus Magnesium Total Bilirubin AST ALT Alkaline Phosphatase Ammonia Total Creatine Kinase CK-MB (CK-2) CK-MB (CK-2) Rel Index Total Protein Albumin Urine WBC (Auto) Vancomycin Trough Salicylates Acetaminophen Plasma/Serum Alcohol Crossmatch 02/17/20 02/17/20 02/18/20 12:05 18:16 00:13 WBC RBC Hgb Hct MCH RDW Plt Count Lymph % (Auto) [place] % (Auto) [place] # Baso # Seg Neutrophils % Seg Neuts % (Manual) Lymphocytes % (Manual) Monocytes % (Manual) Seg Neutrophils # Seg Neutrophils # Man Lymphocytes # (Manual) Monocytes # (Manual) Eosinophils # (Manual) Basophils # (Manual) PT INR APTT ABG pH ABG pO2 ABG HCO3 ABG O2 Saturation ABG Base Excess ABG Hemoglobin Oxyhemoglobin Sodium Potassium Chloride Carbon Dioxide BUN Creatinine Glucose POC Glucose 139 H 127 H 144 H Lactic Acid Calcium Ionized Calcium Phosphorus Magnesium Total Bilirubin AST ALT Alkaline Phosphatase Ammonia Total Creatine Kinase CK-MB (CK-2) CK-MB (CK-2) Rel Index Total Protein Albumin Urine WBC (Auto) Vancomycin Trough Salicylates Acetaminophen Plasma/Serum Alcohol Crossmatch 02/18/20 02/18/20 02/19/20 17:41 23:28 05:17 WBC RBC Hgb Hct MCH RDW Plt Count Lymph % (Auto) [place] % (Auto) [place] # Baso # Seg Neutrophils % Seg Neuts % (Manual) Lymphocytes % (Manual) Monocytes % (Manual) Seg Neutrophils # Seg Neutrophils # Man Lymphocytes # (Manual) Monocytes # (Manual) Eosinophils # (Manual) Basophils # (Manual) PT INR APTT ABG pH ABG pO2 ABG HCO3 ABG O2 Saturation ABG Base Excess ABG Hemoglobin Oxyhemoglobin Sodium Potassium Chloride Carbon Dioxide BUN Creatinine Glucose POC Glucose 118 H 166 H 116 H Lactic Acid Calcium Ionized Calcium Phosphorus Magnesium Total Bilirubin AST ALT Alkaline Phosphatase Ammonia Total Creatine Kinase CK-MB (CK-2) CK-MB (CK-2) Rel Index Total Protein Albumin Urine WBC (Auto) Vancomycin Trough Salicylates Acetaminophen Plasma/Serum Alcohol Crossmatch 02/19/20 02/19/20 02/20/20 12:33 17:02 00:12 WBC RBC Hgb Hct MCH RDW Plt Count Lymph % (Auto) [place] % (Auto) [place] # Baso # Seg Neutrophils % Seg Neuts % (Manual) Lymphocytes % (Manual) Monocytes % (Manual) Seg Neutrophils # Seg Neutrophils # Man Lymphocytes # (Manual) Monocytes # (Manual) Eosinophils # (Manual) Basophils # (Manual) PT INR APTT ABG pH ABG pO2 ABG HCO3 ABG O2 Saturation ABG Base Excess ABG Hemoglobin Oxyhemoglobin Sodium Potassium Chloride Carbon Dioxide BUN Creatinine Glucose POC Glucose 115 H 108 H 153 H Lactic Acid Calcium Ionized Calcium Phosphorus Magnesium Total Bilirubin AST ALT Alkaline Phosphatase Ammonia Total Creatine Kinase CK-MB (CK-2) CK-MB (CK-2) Rel Index Total Protein Albumin Urine WBC (Auto) Vancomycin Trough Salicylates Acetaminophen Plasma/Serum Alcohol Crossmatch 02/20/20 02/20/20 02/21/20 12:00 23:13 05:07 WBC RBC Hgb Hct MCH RDW Plt Count Lymph % (Auto) [place] % (Auto) [place] # Baso # Seg Neutrophils % Seg Neuts % (Manual) Lymphocytes % (Manual) Monocytes % (Manual) Seg Neutrophils # Seg Neutrophils # Man Lymphocytes # (Manual) Monocytes # (Manual) Eosinophils # (Manual) Basophils # (Manual) PT INR APTT ABG pH ABG pO2 ABG HCO3 ABG O2 Saturation ABG Base Excess ABG Hemoglobin Oxyhemoglobin Sodium Potassium Chloride Carbon Dioxide BUN Creatinine Glucose POC Glucose 171 H 129 H 116 H Lactic Acid Calcium Ionized Calcium Phosphorus Magnesium Total Bilirubin AST ALT Alkaline Phosphatase Ammonia Total Creatine Kinase CK-MB (CK-2) CK-MB (CK-2) Rel Index Total Protein Albumin Urine WBC (Auto) Vancomycin Trough Salicylates Acetaminophen Plasma/Serum Alcohol Crossmatch 02/21/20 02/22/20 02/22/20 12:15 00:42 06:30 WBC RBC Hgb Hct MCH RDW Plt Count Lymph % (Auto) [place] % (Auto) [place] # Baso # Seg Neutrophils % Seg Neuts % (Manual) Lymphocytes % (Manual) Monocytes % (Manual) Seg Neutrophils # Seg Neutrophils # Man Lymphocytes # (Manual) Monocytes # (Manual) Eosinophils # (Manual) Basophils # (Manual) PT INR APTT ABG pH ABG pO2 ABG HCO3 ABG O2 Saturation ABG Base Excess ABG Hemoglobin Oxyhemoglobin Sodium Potassium Chloride Carbon Dioxide BUN Creatinine Glucose POC Glucose 124 H 142 H 117 H Lactic Acid Calcium Ionized Calcium Phosphorus Magnesium Total Bilirubin AST ALT Alkaline Phosphatase Ammonia Total Creatine Kinase CK-MB (CK-2) CK-MB (CK-2) Rel Index Total Protein Albumin Urine WBC (Auto) Vancomycin Trough Salicylates Acetaminophen Plasma/Serum Alcohol Crossmatch 02/22/20 02/22/20 02/23/20 12:20 17:55 12:46 WBC RBC Hgb Hct MCH RDW Plt Count Lymph % (Auto) [place] % (Auto) [place] # Baso # Seg Neutrophils % Seg Neuts % (Manual) Lymphocytes % (Manual) Monocytes % (Manual) Seg Neutrophils # Seg Neutrophils # Man Lymphocytes # (Manual) Monocytes # (Manual) Eosinophils # (Manual) Basophils # (Manual) PT INR APTT ABG pH ABG pO2 ABG HCO3 ABG O2 Saturation ABG Base Excess ABG Hemoglobin Oxyhemoglobin Sodium Potassium Chloride Carbon Dioxide BUN Creatinine Glucose POC Glucose 121 H 157 H 112 H Lactic Acid Calcium Ionized Calcium Phosphorus Magnesium Total Bilirubin AST ALT Alkaline Phosphatase Ammonia Total Creatine Kinase CK-MB (CK-2) CK-MB (CK-2) Rel Index Total Protein Albumin Urine WBC (Auto) Vancomycin Trough Salicylates Acetaminophen Plasma/Serum Alcohol Crossmatch 02/23/20 02/24/20 02/24/20 16:47 00:38 07:00 WBC RBC Hgb Hct MCH RDW Plt Count Lymph % (Auto) [place] % (Auto) [place] # Baso # Seg Neutrophils % Seg Neuts % (Manual) Lymphocytes % (Manual) Monocytes % (Manual) Seg Neutrophils # Seg Neutrophils # Man Lymphocytes # (Manual) Monocytes # (Manual) Eosinophils # (Manual) Basophils # (Manual) PT INR APTT ABG pH ABG pO2 ABG HCO3 ABG O2 Saturation ABG Base Excess ABG Hemoglobin Oxyhemoglobin Sodium Potassium Chloride Carbon Dioxide BUN Creatinine Glucose POC Glucose 142 H 138 H 118 H Lactic Acid Calcium Ionized Calcium Phosphorus Magnesium Total Bilirubin AST ALT Alkaline Phosphatase Ammonia Total Creatine Kinase CK-MB (CK-2) CK-MB (CK-2) Rel Index Total Protein Albumin Urine WBC (Auto) Vancomycin Trough Salicylates Acetaminophen Plasma/Serum Alcohol Crossmatch 02/24/20 02/24/20 02/25/20 11:41 18:33 18:24 WBC RBC Hgb Hct MCH RDW Plt Count Lymph % (Auto) [place] % (Auto) [place] # Baso # Seg Neutrophils % Seg Neuts % (Manual) Lymphocytes % (Manual) Monocytes % (Manual) Seg Neutrophils # Seg Neutrophils # Man Lymphocytes # (Manual) Monocytes # (Manual) Eosinophils # (Manual) Basophils # (Manual) PT INR APTT ABG pH ABG pO2 ABG HCO3 ABG O2 Saturation ABG Base Excess ABG Hemoglobin Oxyhemoglobin Sodium Potassium Chloride Carbon Dioxide BUN Creatinine Glucose POC Glucose 152 H 126 H 120 H Lactic Acid Calcium Ionized Calcium Phosphorus Magnesium Total Bilirubin AST ALT Alkaline Phosphatase Ammonia Total Creatine Kinase CK-MB (CK-2) CK-MB (CK-2) Rel Index Total Protein Albumin Urine WBC (Auto) Vancomycin Trough Salicylates Acetaminophen Plasma/Serum Alcohol Crossmatch 02/25/20 02/26/20 02/26/20 23:40 05:46 11:32 WBC RBC Hgb Hct MCH RDW Plt Count Lymph % (Auto) [place] % (Auto) [place] # Baso # Seg Neutrophils % Seg Neuts % (Manual) Lymphocytes % (Manual) Monocytes % (Manual) Seg Neutrophils # Seg Neutrophils # Man Lymphocytes # (Manual) Monocytes # (Manual) Eosinophils # (Manual) Basophils # (Manual) PT INR APTT ABG pH ABG pO2 ABG HCO3 ABG O2 Saturation ABG Base Excess ABG Hemoglobin Oxyhemoglobin Sodium Potassium Chloride Carbon Dioxide BUN Creatinine Glucose POC Glucose 114 H 113 H 106 H Lactic Acid Calcium Ionized Calcium Phosphorus Magnesium Total Bilirubin AST ALT Alkaline Phosphatase Ammonia Total Creatine Kinase CK-MB (CK-2) CK-MB (CK-2) Rel Index Total Protein Albumin Urine WBC (Auto) Vancomycin Trough Salicylates Acetaminophen Plasma/Serum Alcohol Crossmatch 02/26/20 02/27/20 02/27/20 16:14 11:53 17:54 WBC RBC Hgb Hct MCH RDW Plt Count Lymph % (Auto) [place] % (Auto) [place] # Baso # Seg Neutrophils % Seg Neuts % (Manual) Lymphocytes % (Manual) Monocytes % (Manual) Seg Neutrophils # Seg Neutrophils # Man Lymphocytes # (Manual) Monocytes # (Manual) Eosinophils # (Manual) Basophils # (Manual) PT INR APTT ABG pH ABG pO2 ABG HCO3 ABG O2 Saturation ABG Base Excess ABG Hemoglobin Oxyhemoglobin Sodium Potassium Chloride Carbon Dioxide BUN Creatinine Glucose POC Glucose 123 H 134 H 119 H Lactic Acid Calcium Ionized Calcium Phosphorus Magnesium Total Bilirubin AST ALT Alkaline Phosphatase Ammonia Total Creatine Kinase CK-MB (CK-2) CK-MB (CK-2) Rel Index Total Protein Albumin Urine WBC (Auto) Vancomycin Trough Salicylates Acetaminophen Plasma/Serum Alcohol Crossmatch 02/27/20 02/28/20 02/28/20 23:51 03:40 03:40 WBC RBC 3.58 L Hgb Hct MCH RDW Plt Count 575 H Lymph % (Auto) [place] % (Auto) 9.4 H [place] # 1.0 H Baso # Seg Neutrophils % Seg Neuts % (Manual) Lymphocytes % (Manual) Monocytes % (Manual) Seg Neutrophils # Seg Neutrophils # Man Lymphocytes # (Manual) Monocytes # (Manual) Eosinophils # (Manual) Basophils # (Manual) PT INR APTT ABG pH ABG pO2 ABG HCO3 ABG O2 Saturation ABG Base Excess ABG Hemoglobin Oxyhemoglobin Sodium Potassium Chloride Carbon Dioxide BUN 23 H Creatinine 0.5 L Glucose 114 H POC Glucose 138 H Lactic Acid Calcium Ionized Calcium Phosphorus Magnesium Total Bilirubin AST ALT Alkaline Phosphatase Ammonia Total Creatine Kinase CK-MB (CK-2) CK-MB (CK-2) Rel Index Total Protein Albumin Urine WBC (Auto) Vancomycin Trough Salicylates Acetaminophen Plasma/Serum Alcohol Crossmatch 02/28/20 02/28/20 02/29/20 12:37 18:38 05:50 WBC RBC Hgb Hct MCH RDW Plt Count Lymph % (Auto) [place] % (Auto) [place] # Baso # Seg Neutrophils % Seg Neuts % (Manual) Lymphocytes % (Manual) Monocytes % (Manual) Seg Neutrophils # Seg Neutrophils # Man Lymphocytes # (Manual) Monocytes # (Manual) Eosinophils # (Manual) Basophils # (Manual) PT INR APTT ABG pH ABG pO2 ABG HCO3 ABG O2 Saturation ABG Base Excess ABG Hemoglobin Oxyhemoglobin Sodium Potassium Chloride Carbon Dioxide BUN Creatinine Glucose POC Glucose 115 H 120 H 114 H Lactic Acid Calcium Ionized Calcium Phosphorus Magnesium Total Bilirubin AST ALT Alkaline Phosphatase Ammonia Total Creatine Kinase CK-MB (CK-2) CK-MB (CK-2) Rel Index Total Protein Albumin Urine WBC (Auto) Vancomycin Trough Salicylates Acetaminophen Plasma/Serum Alcohol Crossmatch 02/29/20 02/29/20 03/01/20 18:53 23:10 06:53 WBC RBC Hgb Hct MCH RDW Plt Count Lymph % (Auto) [place] % (Auto) [place] # Baso # Seg Neutrophils % Seg Neuts % (Manual) Lymphocytes % (Manual) Monocytes % (Manual) Seg Neutrophils # Seg Neutrophils # Man Lymphocytes # (Manual) Monocytes # (Manual) Eosinophils # (Manual) Basophils # (Manual) PT INR APTT ABG pH ABG pO2 ABG HCO3 ABG O2 Saturation ABG Base Excess ABG Hemoglobin Oxyhemoglobin Sodium Potassium Chloride Carbon Dioxide BUN Creatinine Glucose POC Glucose 112 H 147 H 131 H Lactic Acid Calcium Ionized Calcium Phosphorus Magnesium Total Bilirubin AST ALT Alkaline Phosphatase Ammonia Total Creatine Kinase CK-MB (CK-2) CK-MB (CK-2) Rel Index Total Protein Albumin Urine WBC (Auto) Vancomycin Trough Salicylates Acetaminophen Plasma/Serum Alcohol Crossmatch 03/01/20 03/01/20 03/02/20 17:31 18:35 00:10 WBC RBC Hgb Hct MCH RDW Plt Count Lymph % (Auto) [place] % (Auto) [place] # Baso # Seg Neutrophils % Seg Neuts % (Manual) Lymphocytes % (Manual) Monocytes % (Manual) Seg Neutrophils # Seg Neutrophils # Man Lymphocytes # (Manual) Monocytes # (Manual) Eosinophils # (Manual) Basophils # (Manual) PT INR APTT ABG pH ABG pO2 ABG HCO3 ABG O2 Saturation ABG Base Excess ABG Hemoglobin Oxyhemoglobin Sodium Potassium Chloride Carbon Dioxide BUN Creatinine Glucose POC Glucose 61 L 129 H 117 H Lactic Acid Calcium Ionized Calcium Phosphorus Magnesium Total Bilirubin AST ALT Alkaline Phosphatase Ammonia Total Creatine Kinase CK-MB (CK-2) CK-MB (CK-2) Rel Index Total Protein Albumin Urine WBC (Auto) Vancomycin Trough Salicylates Acetaminophen Plasma/Serum Alcohol Crossmatch 03/02/20 03/02/20 03/02/20 06:56 12:02 18:42 WBC RBC Hgb Hct MCH RDW Plt Count Lymph % (Auto) [place] % (Auto) [place] # Baso # Seg Neutrophils % Seg Neuts % (Manual) Lymphocytes % (Manual) Monocytes % (Manual) Seg Neutrophils # Seg Neutrophils # Man Lymphocytes # (Manual) Monocytes # (Manual) Eosinophils # (Manual) Basophils # (Manual) PT INR APTT ABG pH ABG pO2 ABG HCO3 ABG O2 Saturation ABG Base Excess ABG Hemoglobin Oxyhemoglobin Sodium Potassium Chloride Carbon Dioxide BUN Creatinine Glucose POC Glucose 125 H 111 H 126 H Lactic Acid Calcium Ionized Calcium Phosphorus Magnesium Total Bilirubin AST ALT Alkaline Phosphatase Ammonia Total Creatine Kinase CK-MB (CK-2) CK-MB (CK-2) Rel Index Total Protein Albumin Urine WBC (Auto) Vancomycin Trough Salicylates Acetaminophen Plasma/Serum Alcohol Crossmatch 03/03/20 03/03/20 03/03/20 00:18 06:11 11:50 WBC RBC Hgb Hct MCH RDW Plt Count Lymph % (Auto) [place] % (Auto) [place] # Baso # Seg Neutrophils % Seg Neuts % (Manual) Lymphocytes % (Manual) Monocytes % (Manual) Seg Neutrophils # Seg Neutrophils # Man Lymphocytes # (Manual) Monocytes # (Manual) Eosinophils # (Manual) Basophils # (Manual) PT INR APTT ABG pH ABG pO2 ABG HCO3 ABG O2 Saturation ABG Base Excess ABG Hemoglobin Oxyhemoglobin Sodium Potassium Chloride Carbon Dioxide BUN Creatinine Glucose POC Glucose 139 H 155 H 118 H Lactic Acid Calcium Ionized Calcium Phosphorus Magnesium Total Bilirubin AST ALT Alkaline Phosphatase Ammonia Total Creatine Kinase CK-MB (CK-2) CK-MB (CK-2) Rel Index Total Protein Albumin Urine WBC (Auto) Vancomycin Trough Salicylates Acetaminophen Plasma/Serum Alcohol Crossmatch 03/03/20 03/03/20 03/04/20 18:09 23:46 05:37 WBC RBC Hgb Hct MCH RDW Plt Count Lymph % (Auto) [place] % (Auto) [place] # Baso # Seg Neutrophils % Seg Neuts % (Manual) Lymphocytes % (Manual) Monocytes % (Manual) Seg Neutrophils # Seg Neutrophils # Man Lymphocytes # (Manual) Monocytes # (Manual) Eosinophils # (Manual) Basophils # (Manual) PT INR APTT ABG pH ABG pO2 ABG HCO3 ABG O2 Saturation ABG Base Excess ABG Hemoglobin Oxyhemoglobin Sodium Potassium Chloride Carbon Dioxide BUN Creatinine Glucose POC Glucose 109 H 132 H 111 H Lactic Acid Calcium Ionized Calcium Phosphorus Magnesium Total Bilirubin AST ALT Alkaline Phosphatase Ammonia Total Creatine Kinase CK-MB (CK-2) CK-MB (CK-2) Rel Index Total Protein Albumin Urine WBC (Auto) Vancomycin Trough Salicylates Acetaminophen Plasma/Serum Alcohol Crossmatch 03/04/20 03/04/20 03/05/20 11:38 17:54 00:14 WBC RBC Hgb Hct MCH RDW Plt Count Lymph % (Auto) [place] % (Auto) [place] # Baso # Seg Neutrophils % Seg Neuts % (Manual) Lymphocytes % (Manual) Monocytes % (Manual) Seg Neutrophils # Seg Neutrophils # Man Lymphocytes # (Manual) Monocytes # (Manual) Eosinophils # (Manual) Basophils # (Manual) PT INR APTT ABG pH ABG pO2 ABG HCO3 ABG O2 Saturation ABG Base Excess ABG Hemoglobin Oxyhemoglobin Sodium Potassium Chloride Carbon Dioxide BUN Creatinine Glucose POC Glucose 138 H 118 H 134 H Lactic Acid Calcium Ionized Calcium Phosphorus Magnesium Total Bilirubin AST ALT Alkaline Phosphatase Ammonia Total Creatine Kinase CK-MB (CK-2) CK-MB (CK-2) Rel Index Total Protein Albumin Urine WBC (Auto) Vancomycin Trough Salicylates Acetaminophen Plasma/Serum Alcohol Crossmatch 03/06/20 03/06/20 03/06/20 03:37 03:37 06:29 WBC RBC Hgb Hct MCH RDW Plt Count 550 H Lymph % (Auto) [place] % (Auto) 9.1 H [place] # Baso # Seg Neutrophils % Seg Neuts % (Manual) Lymphocytes % (Manual) Monocytes % (Manual) Seg Neutrophils # Seg Neutrophils # Man Lymphocytes # (Manual) Monocytes # (Manual) Eosinophils # (Manual) Basophils # (Manual) PT INR APTT ABG pH ABG pO2 ABG HCO3 ABG O2 Saturation ABG Base Excess ABG Hemoglobin Oxyhemoglobin Sodium Potassium Chloride Carbon Dioxide BUN 26 H Creatinine 0.5 L Glucose POC Glucose 128 H Lactic Acid Calcium 10.4 H Ionized Calcium Phosphorus Magnesium Total Bilirubin AST ALT Alkaline Phosphatase Ammonia Total Creatine Kinase CK-MB (CK-2) CK-MB (CK-2) Rel Index Total Protein Albumin Urine WBC (Auto) Vancomycin Trough Salicylates Acetaminophen Plasma/Serum Alcohol Crossmatch 03/06/20 03/07/20 03/07/20 17:47 06:37 12:37 WBC RBC Hgb Hct MCH RDW Plt Count Lymph % (Auto) [place] % (Auto) [place] # Baso # Seg Neutrophils % Seg Neuts % (Manual) Lymphocytes % (Manual) Monocytes % (Manual) Seg Neutrophils # Seg Neutrophils # Man Lymphocytes # (Manual) Monocytes # (Manual) Eosinophils # (Manual) Basophils # (Manual) PT INR APTT ABG pH ABG pO2 ABG HCO3 ABG O2 Saturation ABG Base Excess ABG Hemoglobin Oxyhemoglobin Sodium Potassium Chloride Carbon Dioxide BUN Creatinine Glucose POC Glucose 120 H 113 H 118 H Lactic Acid Calcium Ionized Calcium Phosphorus Magnesium Total Bilirubin AST ALT Alkaline Phosphatase Ammonia Total Creatine Kinase CK-MB (CK-2) CK-MB (CK-2) Rel Index Total Protein Albumin Urine WBC (Auto) Vancomycin Trough Salicylates Acetaminophen Plasma/Serum Alcohol Crossmatch 03/07/20 03/08/20 03/08/20 16:41 00:55 06:25 WBC RBC Hgb Hct MCH RDW Plt Count Lymph % (Auto) [place] % (Auto) [place] # Baso # Seg Neutrophils % Seg Neuts % (Manual) Lymphocytes % (Manual) Monocytes % (Manual) Seg Neutrophils # Seg Neutrophils # Man Lymphocytes # (Manual) Monocytes # (Manual) Eosinophils # (Manual) Basophils # (Manual) PT INR APTT ABG pH ABG pO2 ABG HCO3 ABG O2 Saturation ABG Base Excess ABG Hemoglobin Oxyhemoglobin Sodium Potassium Chloride Carbon Dioxide BUN Creatinine Glucose POC Glucose 108 H 139 H 127 H Lactic Acid Calcium Ionized Calcium Phosphorus Magnesium Total Bilirubin AST ALT Alkaline Phosphatase Ammonia Total Creatine Kinase CK-MB (CK-2) CK-MB (CK-2) Rel Index Total Protein Albumin Urine WBC (Auto) Vancomycin Trough Salicylates Acetaminophen Plasma/Serum Alcohol Crossmatch 03/08/20 03/08/20 03/08/20 12:49 13:25 17:13 WBC RBC Hgb Hct MCH RDW Plt Count Lymph % (Auto) [place] % (Auto) [place] # Baso # Seg Neutrophils % Seg Neuts % (Manual) Lymphocytes % (Manual) Monocytes % (Manual) Seg Neutrophils # Seg Neutrophils # Man Lymphocytes # (Manual) Monocytes # (Manual) Eosinophils # (Manual) Basophils # (Manual) PT INR APTT ABG pH ABG pO2 71.1 L ABG HCO3 26.2 H ABG O2 Saturation ABG Base Excess ABG Hemoglobin 8.2 L Oxyhemoglobin 94.8 L Sodium Potassium Chloride Carbon Dioxide BUN Creatinine Glucose POC Glucose 127 H 147 H Lactic Acid Calcium Ionized Calcium Phosphorus Magnesium Total Bilirubin AST ALT Alkaline Phosphatase Ammonia Total Creatine Kinase CK-MB (CK-2) CK-MB (CK-2) Rel Index Total Protein Albumin Urine WBC (Auto) Vancomycin Trough Salicylates Acetaminophen Plasma/Serum Alcohol Crossmatch 03/09/20 03/09/20 03/09/20 06:28 08:36 23:58 WBC RBC Hgb Hct MCH RDW Plt Count Lymph % (Auto) [place] % (Auto) [place] # Baso # Seg Neutrophils % Seg Neuts % (Manual) Lymphocytes % (Manual) Monocytes % (Manual) Seg Neutrophils # Seg Neutrophils # Man Lymphocytes # (Manual) Monocytes # (Manual) Eosinophils # (Manual) Basophils # (Manual) PT INR APTT ABG pH ABG pO2 ABG HCO3 ABG O2 Saturation ABG Base Excess ABG Hemoglobin Oxyhemoglobin Sodium Potassium Chloride Carbon Dioxide BUN Creatinine Glucose POC Glucose 139 H 167 H 122 H Lactic Acid Calcium Ionized Calcium Phosphorus Magnesium Total Bilirubin AST ALT Alkaline Phosphatase Ammonia Total Creatine Kinase CK-MB (CK-2) CK-MB (CK-2) Rel Index Total Protein Albumin Urine WBC (Auto) Vancomycin Trough Salicylates Acetaminophen Plasma/Serum Alcohol Crossmatch 03/10/20 03/10/20 03/11/20 06:32 23:27 06:23 WBC RBC Hgb Hct MCH RDW Plt Count Lymph % (Auto) [place] % (Auto) [place] # Baso # Seg Neutrophils % Seg Neuts % (Manual) Lymphocytes % (Manual) Monocytes % (Manual) Seg Neutrophils # Seg Neutrophils # Man Lymphocytes # (Manual) Monocytes # (Manual) Eosinophils # (Manual) Basophils # (Manual) PT INR APTT ABG pH ABG pO2 ABG HCO3 ABG O2 Saturation ABG Base Excess ABG Hemoglobin Oxyhemoglobin Sodium Potassium Chloride Carbon Dioxide BUN Creatinine Glucose POC Glucose 165 H 115 H 139 H Lactic Acid Calcium Ionized Calcium Phosphorus Magnesium Total Bilirubin AST ALT Alkaline Phosphatase Ammonia Total Creatine Kinase CK-MB (CK-2) CK-MB (CK-2) Rel Index Total Protein Albumin Urine WBC (Auto) Vancomycin Trough Salicylates Acetaminophen Plasma/Serum Alcohol Crossmatch 03/11/20 03/11/20 03/12/20 12:29 18:02 04:53 WBC RBC Hgb Hct MCH RDW Plt Count 625 H Lymph % (Auto) [place] % (Auto) [place] # Baso # Seg Neutrophils % Seg Neuts % (Manual) Lymphocytes % (Manual) Monocytes % (Manual) Seg Neutrophils # Seg Neutrophils # Man Lymphocytes # (Manual) Monocytes # (Manual) Eosinophils # (Manual) Basophils # (Manual) PT INR APTT ABG pH ABG pO2 ABG HCO3 ABG O2 Saturation ABG Base Excess ABG Hemoglobin Oxyhemoglobin Sodium Potassium Chloride Carbon Dioxide BUN Creatinine Glucose POC Glucose 164 H 113 H Lactic Acid Calcium Ionized Calcium Phosphorus Magnesium Total Bilirubin AST ALT Alkaline Phosphatase Ammonia Total Creatine Kinase CK-MB (CK-2) CK-MB (CK-2) Rel Index Total Protein Albumin Urine WBC (Auto) Vancomycin Trough Salicylates Acetaminophen Plasma/Serum Alcohol Crossmatch 03/12/20 03/12/20 03/12/20 04:53 06:26 12:38 WBC RBC Hgb Hct MCH RDW Plt Count Lymph % (Auto) [place] % (Auto) [place] # Baso # Seg Neutrophils % Seg Neuts % (Manual) Lymphocytes % (Manual) Monocytes % (Manual) Seg Neutrophils # Seg Neutrophils # Man Lymphocytes # (Manual) Monocytes # (Manual) Eosinophils # (Manual) Basophils # (Manual) PT INR APTT ABG pH ABG pO2 ABG HCO3 ABG O2 Saturation ABG Base Excess ABG Hemoglobin Oxyhemoglobin Sodium Potassium 5.3 H Chloride Carbon Dioxide BUN 34 H Creatinine Glucose 159 H POC Glucose 149 H 130 H Lactic Acid Calcium 10.7 H Ionized Calcium Phosphorus Magnesium Total Bilirubin AST ALT Alkaline Phosphatase Ammonia Total Creatine Kinase CK-MB (CK-2) CK-MB (CK-2) Rel Index Total Protein Albumin Urine WBC (Auto) Vancomycin Trough Salicylates Acetaminophen Plasma/Serum Alcohol Crossmatch 03/13/20 03/13/20 03/13/20 03:50 06:12 18:11 WBC RBC Hgb Hct MCH RDW Plt Count Lymph % (Auto) [place] % (Auto) [place] # Baso # Seg Neutrophils % Seg Neuts % (Manual) Lymphocytes % (Manual) Monocytes % (Manual) Seg Neutrophils # Seg Neutrophils # Man Lymphocytes # (Manual) Monocytes # (Manual) Eosinophils # (Manual) Basophils # (Manual) PT INR APTT ABG pH ABG pO2 ABG HCO3 ABG O2 Saturation ABG Base Excess ABG Hemoglobin Oxyhemoglobin Sodium Potassium Chloride Carbon Dioxide 20 L BUN 30 H Creatinine 0.6 L Glucose 153 H POC Glucose 124 H 111 H Lactic Acid Calcium Ionized Calcium Phosphorus Magnesium Total Bilirubin AST ALT Alkaline Phosphatase Ammonia Total Creatine Kinase CK-MB (CK-2) CK-MB (CK-2) Rel Index Total Protein Albumin Urine WBC (Auto) Vancomycin Trough Salicylates Acetaminophen Plasma/Serum Alcohol Crossmatch 03/14/20 03/14/20 03/15/20 12:01 15:40 00:02 WBC RBC Hgb Hct MCH RDW Plt Count Lymph % (Auto) [place] % (Auto) [place] # Baso # Seg Neutrophils % Seg Neuts % (Manual) Lymphocytes % (Manual) Monocytes % (Manual) Seg Neutrophils # Seg Neutrophils # Man Lymphocytes # (Manual) Monocytes # (Manual) Eosinophils # (Manual) Basophils # (Manual) PT INR APTT ABG pH ABG pO2 ABG HCO3 ABG O2 Saturation ABG Base Excess ABG Hemoglobin Oxyhemoglobin Sodium Potassium Chloride Carbon Dioxide BUN Creatinine Glucose POC Glucose 116 H 125 H 143 H Lactic Acid Calcium Ionized Calcium Phosphorus Magnesium Total Bilirubin AST ALT Alkaline Phosphatase Ammonia Total Creatine Kinase CK-MB (CK-2) CK-MB (CK-2) Rel Index Total Protein Albumin Urine WBC (Auto) Vancomycin Trough Salicylates Acetaminophen Plasma/Serum Alcohol Crossmatch 03/15/20 03/15/20 03/16/20 12:03 18:14 12:14 WBC RBC Hgb Hct MCH RDW Plt Count Lymph % (Auto) [place] % (Auto) [place] # Baso # Seg Neutrophils % Seg Neuts % (Manual) Lymphocytes % (Manual) Monocytes % (Manual) Seg Neutrophils # Seg Neutrophils # Man Lymphocytes # (Manual) Monocytes # (Manual) Eosinophils # (Manual) Basophils # (Manual) PT INR APTT ABG pH ABG pO2 ABG HCO3 ABG O2 Saturation ABG Base Excess ABG Hemoglobin Oxyhemoglobin Sodium Potassium Chloride Carbon Dioxide BUN Creatinine Glucose POC Glucose 106 H 107 H 107 H Lactic Acid Calcium Ionized Calcium Phosphorus Magnesium Total Bilirubin AST ALT Alkaline Phosphatase Ammonia Total Creatine Kinase CK-MB (CK-2) CK-MB (CK-2) Rel Index Total Protein Albumin Urine WBC (Auto) Vancomycin Trough Salicylates Acetaminophen Plasma/Serum Alcohol Crossmatch 03/16/20 03/17/20 03/17/20 18:30 05:44 12:09 WBC RBC Hgb Hct MCH RDW Plt Count Lymph % (Auto) [place] % (Auto) [place] # Baso # Seg Neutrophils % Seg Neuts % (Manual) Lymphocytes % (Manual) Monocytes % (Manual) Seg Neutrophils # Seg Neutrophils # Man Lymphocytes # (Manual) Monocytes # (Manual) Eosinophils # (Manual) Basophils # (Manual) PT INR APTT ABG pH ABG pO2 ABG HCO3 ABG O2 Saturation ABG Base Excess ABG Hemoglobin Oxyhemoglobin Sodium Potassium Chloride Carbon Dioxide BUN Creatinine Glucose POC Glucose 128 H 114 H 120 H Lactic Acid Calcium Ionized Calcium Phosphorus Magnesium Total Bilirubin AST ALT Alkaline Phosphatase Ammonia Total Creatine Kinase CK-MB (CK-2) CK-MB (CK-2) Rel Index Total Protein Albumin Urine WBC (Auto) Vancomycin Trough Salicylates Acetaminophen Plasma/Serum Alcohol Crossmatch 03/17/20 03/17/20 03/18/20 16:51 23:36 07:07 WBC RBC Hgb Hct MCH RDW Plt Count Lymph % (Auto) [place] % (Auto) [place] # Baso # Seg Neutrophils % Seg Neuts % (Manual) Lymphocytes % (Manual) Monocytes % (Manual) Seg Neutrophils # Seg Neutrophils # Man Lymphocytes # (Manual) Monocytes # (Manual) Eosinophils # (Manual) Basophils # (Manual) PT INR APTT ABG pH ABG pO2 ABG HCO3 ABG O2 Saturation ABG Base Excess ABG Hemoglobin Oxyhemoglobin Sodium Potassium Chloride Carbon Dioxide BUN Creatinine Glucose POC Glucose 108 H 145 H 116 H Lactic Acid Calcium Ionized Calcium Phosphorus Magnesium Total Bilirubin AST ALT Alkaline Phosphatase Ammonia Total Creatine Kinase CK-MB (CK-2) CK-MB (CK-2) Rel Index Total Protein Albumin Urine WBC (Auto) Vancomycin Trough Salicylates Acetaminophen Plasma/Serum Alcohol Crossmatch 03/18/20 03/19/20 03/19/20 18:11 06:09 11:49 WBC RBC Hgb Hct MCH RDW Plt Count Lymph % (Auto) [place] % (Auto) [place] # Baso # Seg Neutrophils % Seg Neuts % (Manual) Lymphocytes % (Manual) Monocytes % (Manual) Seg Neutrophils # Seg Neutrophils # Man Lymphocytes # (Manual) Monocytes # (Manual) Eosinophils # (Manual) Basophils # (Manual) PT INR APTT ABG pH ABG pO2 ABG HCO3 ABG O2 Saturation ABG Base Excess ABG Hemoglobin Oxyhemoglobin Sodium Potassium Chloride Carbon Dioxide BUN Creatinine Glucose POC Glucose 106 H 160 H 145 H Lactic Acid Calcium Ionized Calcium Phosphorus Magnesium Total Bilirubin AST ALT Alkaline Phosphatase Ammonia Total Creatine Kinase CK-MB (CK-2) CK-MB (CK-2) Rel Index Total Protein Albumin Urine WBC (Auto) Vancomycin Trough Salicylates Acetaminophen Plasma/Serum Alcohol Crossmatch 03/20/20 03/20/20 03/20/20 01:01 06:14 12:52 WBC RBC Hgb Hct MCH RDW Plt Count Lymph % (Auto) [place] % (Auto) [place] # Baso # Seg Neutrophils % Seg Neuts % (Manual) Lymphocytes % (Manual) Monocytes % (Manual) Seg Neutrophils # Seg Neutrophils # Man Lymphocytes # (Manual) Monocytes # (Manual) Eosinophils # (Manual) Basophils # (Manual) PT INR APTT ABG pH ABG pO2 ABG HCO3 ABG O2 Saturation ABG Base Excess ABG Hemoglobin Oxyhemoglobin Sodium Potassium Chloride Carbon Dioxide BUN Creatinine Glucose POC Glucose 109 H 122 H 106 H Lactic Acid Calcium Ionized Calcium Phosphorus Magnesium Total Bilirubin AST ALT Alkaline Phosphatase Ammonia Total Creatine Kinase CK-MB (CK-2) CK-MB (CK-2) Rel Index Total Protein Albumin Urine WBC (Auto) Vancomycin Trough Salicylates Acetaminophen Plasma/Serum Alcohol Crossmatch 03/20/20 03/21/20 03/21/20 18:56 00:18 05:21 WBC RBC Hgb Hct MCH RDW Plt Count Lymph % (Auto) [place] % (Auto) [place] # Baso # Seg Neutrophils % Seg Neuts % (Manual) Lymphocytes % (Manual) Monocytes % (Manual) Seg Neutrophils # Seg Neutrophils # Man Lymphocytes # (Manual) Monocytes # (Manual) Eosinophils # (Manual) Basophils # (Manual) PT INR APTT ABG pH ABG pO2 ABG HCO3 ABG O2 Saturation ABG Base Excess ABG Hemoglobin Oxyhemoglobin Sodium Potassium Chloride Carbon Dioxide BUN Creatinine Glucose POC Glucose 110 H 140 H 112 H Lactic Acid Calcium Ionized Calcium Phosphorus Magnesium Total Bilirubin AST ALT Alkaline Phosphatase Ammonia Total Creatine Kinase CK-MB (CK-2) CK-MB (CK-2) Rel Index Total Protein Albumin Urine WBC (Auto) Vancomycin Trough Salicylates Acetaminophen Plasma/Serum Alcohol Crossmatch 03/21/20 03/22/20 03/22/20 17:15 01:14 12:08 WBC RBC Hgb Hct MCH RDW Plt Count Lymph % (Auto) [place] % (Auto) [place] # Baso # Seg Neutrophils % Seg Neuts % (Manual) Lymphocytes % (Manual) Monocytes % (Manual) Seg Neutrophils # Seg Neutrophils # Man Lymphocytes # (Manual) Monocytes # (Manual) Eosinophils # (Manual) Basophils # (Manual) PT INR APTT ABG pH ABG pO2 ABG HCO3 ABG O2 Saturation ABG Base Excess ABG Hemoglobin Oxyhemoglobin Sodium Potassium Chloride Carbon Dioxide BUN Creatinine Glucose POC Glucose 158 H 157 H 133 H Lactic Acid Calcium Ionized Calcium Phosphorus Magnesium Total Bilirubin AST ALT Alkaline Phosphatase Ammonia Total Creatine Kinase CK-MB (CK-2) CK-MB (CK-2) Rel Index Total Protein Albumin Urine WBC (Auto) Vancomycin Trough Salicylates Acetaminophen Plasma/Serum Alcohol Crossmatch 03/22/20 03/23/20 03/23/20 16:48 01:00 06:54 WBC RBC Hgb Hct MCH RDW Plt Count Lymph % (Auto) [place] % (Auto) [place] # Baso # Seg Neutrophils % Seg Neuts % (Manual) Lymphocytes % (Manual) Monocytes % (Manual) Seg Neutrophils # Seg Neutrophils # Man Lymphocytes # (Manual) Monocytes # (Manual) Eosinophils # (Manual) Basophils # (Manual) PT INR APTT ABG pH ABG pO2 ABG HCO3 ABG O2 Saturation ABG Base Excess ABG Hemoglobin Oxyhemoglobin Sodium Potassium Chloride Carbon Dioxide BUN Creatinine Glucose POC Glucose 111 H 153 H 129 H Lactic Acid Calcium Ionized Calcium Phosphorus Magnesium Total Bilirubin AST ALT Alkaline Phosphatase Ammonia Total Creatine Kinase CK-MB (CK-2) CK-MB (CK-2) Rel Index Total Protein Albumin Urine WBC (Auto) Vancomycin Trough Salicylates Acetaminophen Plasma/Serum Alcohol Crossmatch 03/23/20 03/23/20 03/23/20 12:08 15:54 23:20 WBC RBC Hgb Hct MCH RDW Plt Count Lymph % (Auto) [place] % (Auto) [place] # Baso # Seg Neutrophils % Seg Neuts % (Manual) Lymphocytes % (Manual) Monocytes % (Manual) Seg Neutrophils # Seg Neutrophils # Man Lymphocytes # (Manual) Monocytes # (Manual) Eosinophils # (Manual) Basophils # (Manual) PT INR APTT ABG pH ABG pO2 ABG HCO3 ABG O2 Saturation ABG Base Excess ABG Hemoglobin Oxyhemoglobin Sodium Potassium Chloride Carbon Dioxide BUN Creatinine Glucose POC Glucose 126 H 142 H 115 H Lactic Acid Calcium Ionized Calcium Phosphorus Magnesium Total Bilirubin AST ALT Alkaline Phosphatase Ammonia Total Creatine Kinase CK-MB (CK-2) CK-MB (CK-2) Rel Index Total Protein Albumin Urine WBC (Auto) Vancomycin Trough Salicylates Acetaminophen Plasma/Serum Alcohol Crossmatch 03/24/20 03/24/20 03/24/20 06:33 12:19 16:46 WBC RBC Hgb Hct MCH RDW Plt Count Lymph % (Auto) [place] % (Auto) [place] # Baso # Seg Neutrophils % Seg Neuts % (Manual) Lymphocytes % (Manual) Monocytes % (Manual) Seg Neutrophils # Seg Neutrophils # Man Lymphocytes # (Manual) Monocytes # (Manual) Eosinophils # (Manual) Basophils # (Manual) PT INR APTT ABG pH ABG pO2 ABG HCO3 ABG O2 Saturation ABG Base Excess ABG Hemoglobin Oxyhemoglobin Sodium Potassium Chloride Carbon Dioxide BUN Creatinine Glucose POC Glucose 122 H 156 H 140 H Lactic Acid Calcium Ionized Calcium Phosphorus Magnesium Total Bilirubin AST ALT Alkaline Phosphatase Ammonia Total Creatine Kinase CK-MB (CK-2) CK-MB (CK-2) Rel Index Total Protein Albumin Urine WBC (Auto) Vancomycin Trough Salicylates Acetaminophen Plasma/Serum Alcohol Crossmatch 03/24/20 03/25/20 03/25/20 23:56 04:28 06:45 WBC RBC Hgb Hct MCH RDW Plt Count Lymph % (Auto) [place] % (Auto) [place] # Baso # Seg Neutrophils % Seg Neuts % (Manual) Lymphocytes % (Manual) Monocytes % (Manual) Seg Neutrophils # Seg Neutrophils # Man Lymphocytes # (Manual) Monocytes # (Manual) Eosinophils # (Manual) Basophils # (Manual) PT INR APTT ABG pH ABG pO2 ABG HCO3 ABG O2 Saturation ABG Base Excess ABG Hemoglobin Oxyhemoglobin Sodium Potassium Chloride Carbon Dioxide BUN 23 H Creatinine 0.5 L Glucose 121 H POC Glucose 127 H 130 H Lactic Acid Calcium 10.3 H Ionized Calcium Phosphorus Magnesium Total Bilirubin AST ALT Alkaline Phosphatase Ammonia Total Creatine Kinase CK-MB (CK-2) CK-MB (CK-2) Rel Index Total Protein Albumin Urine WBC (Auto) Vancomycin Trough Salicylates Acetaminophen Plasma/Serum Alcohol Crossmatch 03/25/20 03/25/20 03/26/20 12:50 15:57 05:39 WBC RBC Hgb Hct MCH RDW Plt Count Lymph % (Auto) [place] % (Auto) [place] # Baso # Seg Neutrophils % Seg Neuts % (Manual) Lymphocytes % (Manual) Monocytes % (Manual) Seg Neutrophils # Seg Neutrophils # Man Lymphocytes # (Manual) Monocytes # (Manual) Eosinophils # (Manual) Basophils # (Manual) PT INR APTT ABG pH ABG pO2 ABG HCO3 ABG O2 Saturation ABG Base Excess ABG Hemoglobin Oxyhemoglobin Sodium Potassium Chloride Carbon Dioxide BUN Creatinine Glucose POC Glucose 145 H 118 H 136 H Lactic Acid Calcium Ionized Calcium Phosphorus Magnesium Total Bilirubin AST ALT Alkaline Phosphatase Ammonia Total Creatine Kinase CK-MB (CK-2) CK-MB (CK-2) Rel Index Total Protein Albumin Urine WBC (Auto) Vancomycin Trough Salicylates Acetaminophen Plasma/Serum Alcohol Crossmatch 03/26/20 03/26/20 03/27/20 16:04 23:17 11:31 WBC RBC Hgb Hct MCH RDW Plt Count Lymph % (Auto) [place] % (Auto) [place] # Baso # Seg Neutrophils % Seg Neuts % (Manual) Lymphocytes % (Manual) Monocytes % (Manual) Seg Neutrophils # Seg Neutrophils # Man Lymphocytes # (Manual) Monocytes # (Manual) Eosinophils # (Manual) Basophils # (Manual) PT INR APTT ABG pH ABG pO2 ABG HCO3 ABG O2 Saturation ABG Base Excess ABG Hemoglobin Oxyhemoglobin Sodium Potassium Chloride Carbon Dioxide BUN Creatinine Glucose POC Glucose 157 H 157 H 121 H Lactic Acid Calcium Ionized Calcium Phosphorus Magnesium Total Bilirubin AST ALT Alkaline Phosphatase Ammonia Total Creatine Kinase CK-MB (CK-2) CK-MB (CK-2) Rel Index Total Protein Albumin Urine WBC (Auto) Vancomycin Trough Salicylates Acetaminophen Plasma/Serum Alcohol Crossmatch 03/27/20 03/28/20 03/28/20 16:33 01:55 12:12 WBC RBC Hgb Hct MCH RDW Plt Count Lymph % (Auto) [place] % (Auto) [place] # Baso # Seg Neutrophils % Seg Neuts % (Manual) Lymphocytes % (Manual) Monocytes % (Manual) Seg Neutrophils # Seg Neutrophils # Man Lymphocytes # (Manual) Monocytes # (Manual) Eosinophils # (Manual) Basophils # (Manual) PT INR APTT ABG pH ABG pO2 ABG HCO3 ABG O2 Saturation ABG Base Excess ABG Hemoglobin Oxyhemoglobin Sodium Potassium Chloride Carbon Dioxide BUN Creatinine Glucose POC Glucose 126 H 106 H 116 H Lactic Acid Calcium Ionized Calcium Phosphorus Magnesium Total Bilirubin AST ALT Alkaline Phosphatase Ammonia Total Creatine Kinase CK-MB (CK-2) CK-MB (CK-2) Rel Index Total Protein Albumin Urine WBC (Auto) Vancomycin Trough Salicylates Acetaminophen Plasma/Serum Alcohol Crossmatch 03/28/20 03/29/20 03/29/20 17:57 06:41 16:48 WBC RBC Hgb Hct MCH RDW Plt Count Lymph % (Auto) [place] % (Auto) [place] # Baso # Seg Neutrophils % Seg Neuts % (Manual) Lymphocytes % (Manual) Monocytes % (Manual) Seg Neutrophils # Seg Neutrophils # Man Lymphocytes # (Manual) Monocytes # (Manual) Eosinophils # (Manual) Basophils # (Manual) PT INR APTT ABG pH ABG pO2 ABG HCO3 ABG O2 Saturation ABG Base Excess ABG Hemoglobin Oxyhemoglobin Sodium Potassium Chloride Carbon Dioxide BUN Creatinine Glucose POC Glucose 138 H 154 H 136 H Lactic Acid Calcium Ionized Calcium Phosphorus Magnesium Total Bilirubin AST ALT Alkaline Phosphatase Ammonia Total Creatine Kinase CK-MB (CK-2) CK-MB (CK-2) Rel Index Total Protein Albumin Urine WBC (Auto) Vancomycin Trough Salicylates Acetaminophen Plasma/Serum Alcohol Crossmatch 03/30/20 03/30/20 03/31/20 05:44 12:16 16:37 WBC RBC Hgb Hct MCH RDW Plt Count Lymph % (Auto) [place] % (Auto) [place] # Baso # Seg Neutrophils % Seg Neuts % (Manual) Lymphocytes % (Manual) Monocytes % (Manual) Seg Neutrophils # Seg Neutrophils # Man Lymphocytes # (Manual) Monocytes # (Manual) Eosinophils # (Manual) Basophils # (Manual) PT INR APTT ABG pH ABG pO2 ABG HCO3 ABG O2 Saturation ABG Base Excess ABG Hemoglobin Oxyhemoglobin Sodium Potassium Chloride Carbon Dioxide BUN Creatinine Glucose POC Glucose 110 H 122 H 128 H Lactic Acid Calcium Ionized Calcium Phosphorus Magnesium Total Bilirubin AST ALT Alkaline Phosphatase Ammonia Total Creatine Kinase CK-MB (CK-2) CK-MB (CK-2) Rel Index Total Protein Albumin Urine WBC (Auto) Vancomycin Trough Salicylates Acetaminophen Plasma/Serum Alcohol Crossmatch 04/01/20 04/02/20 04/02/20 22:51 11:38 16:35 WBC RBC Hgb Hct MCH RDW Plt Count Lymph % (Auto) [place] % (Auto) [place] # Baso # Seg Neutrophils % Seg Neuts % (Manual) Lymphocytes % (Manual) Monocytes % (Manual) Seg Neutrophils # Seg Neutrophils # Man Lymphocytes # (Manual) Monocytes # (Manual) Eosinophils # (Manual) Basophils # (Manual) PT INR APTT ABG pH ABG pO2 ABG HCO3 ABG O2 Saturation ABG Base Excess ABG Hemoglobin Oxyhemoglobin Sodium Potassium Chloride Carbon Dioxide BUN Creatinine Glucose POC Glucose 132 H 128 H 108 H Lactic Acid Calcium Ionized Calcium Phosphorus Magnesium Total Bilirubin AST ALT Alkaline Phosphatase Ammonia Total Creatine Kinase CK-MB (CK-2) CK-MB (CK-2) Rel Index Total Protein Albumin Urine WBC (Auto) Vancomycin Trough Salicylates Acetaminophen Plasma/Serum Alcohol Crossmatch 04/05/20 04/11/20 04/11/20 00:16 12:27 15:54 WBC RBC Hgb Hct MCH RDW Plt Count Lymph % (Auto) [place] % (Auto) [place] # Baso # Seg Neutrophils % Seg Neuts % (Manual) Lymphocytes % (Manual) Monocytes % (Manual) Seg Neutrophils # Seg Neutrophils # Man Lymphocytes # (Manual) Monocytes # (Manual) Eosinophils # (Manual) Basophils # (Manual) PT INR APTT ABG pH ABG pO2 ABG HCO3 ABG O2 Saturation ABG Base Excess ABG Hemoglobin Oxyhemoglobin Sodium Potassium Chloride Carbon Dioxide BUN Creatinine Glucose POC Glucose 117 H 123 H 114 H Lactic Acid Calcium Ionized Calcium Phosphorus Magnesium Total Bilirubin AST ALT Alkaline Phosphatase Ammonia Total Creatine Kinase CK-MB (CK-2) CK-MB (CK-2) Rel Index Total Protein Albumin Urine WBC (Auto) Vancomycin Trough Salicylates Acetaminophen Plasma/Serum Alcohol Crossmatch 04/11/20 04/13/20 04/16/20 21:55 16:39 05:00 WBC RBC Hgb Hct MCH RDW Plt Count Lymph % (Auto) [place] % (Auto) [place] # Baso # Seg Neutrophils % Seg Neuts % (Manual) Lymphocytes % (Manual) Monocytes % (Manual) Seg Neutrophils # Seg Neutrophils # Man Lymphocytes # (Manual) Monocytes # (Manual) Eosinophils # (Manual) Basophils # (Manual) PT INR APTT ABG pH ABG pO2 ABG HCO3 ABG O2 Saturation ABG Base Excess ABG Hemoglobin Oxyhemoglobin Sodium Potassium 3.2 L Chloride 107.4 H Carbon Dioxide BUN Creatinine 0.4 L Glucose POC Glucose 126 H 112 H Lactic Acid Calcium Ionized Calcium Phosphorus Magnesium Total Bilirubin AST ALT Alkaline Phosphatase Ammonia Total Creatine Kinase CK-MB (CK-2) CK-MB (CK-2) Rel Index Total Protein Albumin Urine WBC (Auto) Vancomycin Trough Salicylates Acetaminophen Plasma/Serum Alcohol Crossmatch 04/16/20 04/24/20 05/01/20 09:02 18:35 07:57 WBC RBC Hgb Hct MCH RDW Plt Count 502 H 498 H Lymph % (Auto) [place] % (Auto) 7.4 H [place] # Baso # Seg Neutrophils % Seg Neuts % (Manual) Lymphocytes % (Manual) Monocytes % (Manual) Seg Neutrophils # Seg Neutrophils # Man Lymphocytes # (Manual) Monocytes # (Manual) Eosinophils # (Manual) Basophils # (Manual) PT INR APTT ABG pH ABG pO2 ABG HCO3 ABG O2 Saturation ABG Base Excess ABG Hemoglobin Oxyhemoglobin Sodium Potassium Chloride Carbon Dioxide BUN Creatinine Glucose POC Glucose 172 H Lactic Acid Calcium Ionized Calcium Phosphorus Magnesium Total Bilirubin AST ALT Alkaline Phosphatase Ammonia Total Creatine Kinase CK-MB (CK-2) CK-MB (CK-2) Rel Index Total Protein Albumin Urine WBC (Auto) Vancomycin Trough Salicylates Acetaminophen Plasma/Serum Alcohol Crossmatch 05/01/20 07:57 WBC RBC Hgb Hct MCH RDW Plt Count Lymph % (Auto) [place] % (Auto) [place] # Baso # Seg Neutrophils % Seg Neuts % (Manual) Lymphocytes % (Manual) Monocytes % (Manual) Seg Neutrophils # Seg Neutrophils # Man Lymphocytes # (Manual) Monocytes # (Manual) Eosinophils # (Manual) Basophils # (Manual) PT INR APTT ABG pH ABG pO2 ABG HCO3 ABG O2 Saturation ABG Base Excess ABG Hemoglobin Oxyhemoglobin Sodium Potassium Chloride Carbon Dioxide BUN 21 H Creatinine Glucose POC Glucose Lactic Acid Calcium 10.6 H Ionized Calcium Phosphorus Magnesium Total Bilirubin AST ALT Alkaline Phosphatase Ammonia Total Creatine Kinase CK-MB (CK-2) CK-MB (CK-2) Rel Index Total Protein Albumin Urine WBC (Auto) Vancomycin Trough Salicylates Acetaminophen Plasma/Serum Alcohol Crossmatch Allied health notes reviewed: nursing
--- NOTE | 2020-05-02 16:33 | Progress Note ---
Assessment and Plan Assessment and plan: 54-year-old female with a past medical history of Hypertension, Depression, Tobacco use Disorder, Alcohol use Disorder as confirmed by Daughter and pt's mother presents to the hospital status post cardiac arrest at home. EMS found pt in [facility]. They were unable to intubate patient with a ET tube because she was clenching down therefore Joe airway placed. Per the ED physician who evaluated pt, Patient presented with a pulse, intermittent respirations, and bagging support via Joe airway with O2 sat of 100%. Accu-Chek of 71 obtained by EMS. She was intubated in the ER and called for admission. Following admission patient was diagnosed with anoxic brain injury, sepsis with MRSA bacteremia and MSSA pneumonia, alcoholic liver disease. Family member initially wished for full code then changed to DNR, patient treated with IV antibiotics for sepsis, status post trach and PEG on 12/13/19. Weaned off from the vent and put on T- piece. Patient is uninsured, waiting for placement, guarded prognosis. 03/07: Returning to service no acute changes are noted. Continue current management while awaiting placement. Intermittent labs. Base of neck also around tracheostomy tube preventing downgrading. Continue appropriate wound care. 03/08: Plan of care unchanged continues on aerosol trach collar 28% of oxygen. Continue wound care management placement still pending status decision. 03/09: Continue current treatment plan. Continue aspiration precaution 03/10: Continue current management, Restraints as patient still pulling, awaiting placement 03/11: Continue supportive care, intermittent suctioning and pulmonary toilet. awaiting placement. 03/12: Continue supportive care, Give a bolus of fluids due to Hypercalcemia, Monitor Hyperkalemia with labs in am, No arrhythmia. Patient vomiting, concern for aspiration, Chest xray ordered and no active disease noted. Keep HOB >45% 03/13: No evidence of aspiration on xray. Continue supportive care. 03/14: Continue supportive care. Capping trials to start. Discussed with patients nursing and case management to continue daily PT by the Rehab team. 03/15: Discussed again with staff to start capping trial. 03/16: Do not see any indication the capping trial has started will discuss with respiratory therapist. Continue restraints. Still awaiting family decision patient has had some remarkable improvement considering the fact that she was able to stay around night without restraints. We will continue daily trial of this method. Discussed plan with nursing staff 03/17: Continue current care. Currently continue restraints. Continue current management. Continue physical therapy daily. 03/18: Capping trial successful and will possibly get decannulated today. Continue placement. 03/19: Now decannulated and doing well. Begin discharge planning. 03/20: Stable, no new complaints. 03/21: No new complaints. Continue supportive 03/22: No new complaints, still with some confusion, and agitation requiring restraints. Will require daily PT/OT and continue to work with Case management for placement 03/23: continue current management, daily PT/OT. stoma care. No new seizure, slow but gradual improvement noted daily 03/24: Mr. Amaya is a 55-year-old female who presented to the hospital was admitted post cardiac arrest at home she has remarkably done well been extubated and decannulated with stoma healing. She still does experience some intermittent delirious process and as a result is on restraints. I have discussed with nursing staff to see if they can provide a sitter for her and continue daily PT as this will aid in reintroducing her to the community. Case management is working on placement for her. Will check labs in a.m. 04/29: Returning to services, please see other notes. Patient stable and continues to improve. STILL WITH ALTERED MENTAL STATUS, SHE STILL REQUIRES RESTRAINTS, CASE MANAGEMENT WORKING ON PLACEMENT 04/30: Clinically stable continue to monitor still with altered sensorium still awaiting placement. Will check intermittent labs. 05/02: Patient was seen by neurologist no new information noted no further recommendation recommended. Patient continues to be alert but still confused. Remains on restraints for the same reason. Continue daily restrain break while monitoring for fall. Sclera status remains stable. / Anoxic brain injury: suspected CT head: No acute abnormality. EEG ordered showed Generalized slowing. No seizures or epileptiform activity. -Patient now opening her eyes, can speak and able to follow command -As needed haldol for agitation /Acute Respiratory failure -due to MSSA PNA -s/p intubation, s/p trach and PEG on 12/12 with mechanical ventilation, now on T-piece - CTA was done and negative for PE, - Echo quality is poor, showed diastolic dysfunction - continue weaning as tolerated -Continue appropriate and adequate tracheostomy care /Tracheostomy site ulceration -Continue appropriate wound management try to keep area dry. /Anemia, microcytic - Status post 3 units PRBC transfusion, H&H low stable /Acute metabolic encephalopathy/toxic encephalopathy due to the above - cont supportive care /Hyperammonemia - likely from liver disease related to EtOH abuse - Patient had elevated ammonia level and treated with lactulose /Metabolic Acidosis -Alcohol ketoacidosis vs hypoprofusion -Continue to monitor /ELevated LFTs, stable now - due to ischemic hepatitis. /Leucocytosis with sepsis - Source MRSA bacteremia and MSSA pneumonia. UA showed pyuria. RUQ US showed no ascites. - Repeat TTE negative for vegetation. Completed 7 days of Ceftriaxone on 11/29/2019. -Treated with Abx vancomycin 1 gm IV q 12 hour total 2 week till 12/30/2019 /Severe protein calorie malnutrition Dietitian consult to assist in management. /MSSA pneumonia: Status post vancomycin till 12/30/2019 /Alcohol use Disorder - given ongoing Alcohol use almost daily, s/p IV Thiamine - monitor /Severe hypokalemia -Repleted /Seizure disorder: treat with Keppra /H. Influenzae, tracheobronchitis, treated with abx /Moderate to severe fecal impaction - will add stool softner DNR CODE STATUS Disposition: prognosis guarded. Family okay for DNR, PT recommended subacute rehab, discharge pending on placement. Negative for COVID 19 History Interval history: Patient seen and examined, resting comfortable. No new complaints. Hospitalist Physical - Physical exam Narrative exam: General appearance: Present: Appears older than stated age, lying down - EENT Eyes: no scleral icterus, no conjunctival injection, pupil not reactive ENT: clear oral mucosa, dentition normal, no oropharyngeal erythema Ears: bilateral: normal - Neck Neck: stoma clena and dry - Respiratory Respiratory effort: other dressing over the stoma Respiratory: bilateral: rales - Cardiovascular Rhythm: regular Heart Sounds: Present: S1 & S2. Absent: gallop, rub Extremities: pulses intact, No edema, normal color - Gastrointestinal General gastrointestinal: Present: soft, non-tender, non-distended, normal bowel sounds - Integumentary Integumentary: clear, warm, dry - Musculoskeletal Musculoskeletal: No joint swelling or tenderness - Neurologic Neurologic: other (2+ reflexes throughout). respond to commend answers questions appropriately today - Psychiatric Psychiatric: co-operative - Constitutional Vitals: Temp Pulse Resp BP Pulse Ox 98.6 F 105 H 18 132/83 97 05/02/20 16:21 05/02/20 16:21 05/02/20 16:21 05/02/20 16:21 05/02/20 16:21 General appearance: Present: no acute distress HEART Score - HEART Score Troponin: Troponin T < 0.010 ng/mL (0.00-0.029) 11/22/19 23:27 Results - Labs CBC & Chem 7: 05/01/20 07:57 05/01/20 07:57 Labs: Laboratory Last Values WBC 6.8 K/mm3 (4.5-11.0) 05/01/20 07:57 RBC 3.90 M/mm3 (3.65-5.03) 05/01/20 07:57 Hgb 11.4 gm/dl (10.1-14.3) 05/01/20 07:57 Hct 34.9 % (30.3-42.9) 05/01/20 07:57 MCV 90 fl (79-97) 05/01/20 07:57 MCH 29 pg (28-32) 05/01/20 07:57 MCHC 33 % (30-34) 05/01/20 07:57 RDW 14.5 % (13.2-15.2) 05/01/20 07:57 Plt Count 498 K/mm3 (140-440) H 05/01/20 07:57 Lymph % (Auto) 25.9 % (13.4-35.0) 04/16/20 09:02 [place] % (Auto) 7.4 % (0.0-7.3) H 04/16/20 09:02 Eos % (Auto) 0.9 % (0.0-4.3) 04/16/20 09:02 Baso % (Auto) 0.8 % (0.0-1.8) 04/16/20 09:02 Lymph # 1.7 K/mm3 (1.2-5.4) 04/16/20 09:02 [place] # 0.5 K/mm3 (0.0-0.8) 04/16/20 09:02 Eos # 0.1 K/mm3 (0.0-0.4) 04/16/20 09:02 Baso # 0.1 K/mm3 (0.0-0.1) 04/16/20 09:02 Add Manual Diff Complete 12/25/19 03:47 Total Counted 200 12/25/19 03:47 Seg Neutrophils % 65.0 % (40.0-70.0) 04/16/20 09:02 Seg Neuts % (Manual) 97.5 % (40.0-70.0) H 12/25/19 03:47 Band Neutrophils % 0 % 12/25/19 03:47 Lymphocytes % (Manual) 1.0 % (13.4-35.0) L 12/25/19 03:47 Reactive Lymphs % (Man) 0 % 12/25/19 03:47 Monocytes % (Manual) 1.5 % (0.0-7.3) 12/25/19 03:47 Eosinophils % (Manual) 0 % (0.0-4.3) 12/25/19 03:47 Basophils % (Manual) 0 % (0.0-1.8) 12/25/19 03:47 Metamyelocytes % 0 % 12/25/19 03:47 Myelocytes % 0 % 12/25/19 03:47 Promyelocytes % 0 % 12/25/19 03:47 Blast Cells % 0 % 12/25/19 03:47 Nucleated RBC % Not Reportable 12/25/19 03:47 Seg Neutrophils # 4.4 K/mm3 (1.8-7.7) 04/16/20 09:02 Seg Neutrophils # Man 35.3 K/mm3 (1.8-7.7) H 12/25/19 03:47 Band Neutrophils # 0.0 K/mm3 12/25/19 03:47 Lymphocytes # (Manual) 0.4 K/mm3 (1.2-5.4) L 12/25/19 03:47 Abs React Lymphs (Man) 0.0 K/mm3 12/25/19 03:47 Monocytes # (Manual) 0.5 K/mm3 (0.0-0.8) 12/25/19 03:47 Eosinophils # (Manual) 0.0 K/mm3 (0.0-0.4) 12/25/19 03:47 Basophils # (Manual) 0.0 K/mm3 (0.0-0.1) 12/25/19 03:47 Metamyelocytes # 0.0 K/mm3 12/25/19 03:47 Myelocytes # 0.0 K/mm3 12/25/19 03:47 Promyelocytes # 0.0 K/mm3 12/25/19 03:47 Blast Cells # 0.0 K/mm3 12/25/19 03:47 Pathologist Review 12/13/19 07:48 WBC Morphology Not Reportable 12/25/19 03:47 Hypersegmented Neuts Not Reportable 12/25/19 03:47 Hyposegmented Neuts Not Reportable 12/25/19 03:47 Hypogranular Neuts Not Reportable 12/25/19 03:47 Smudge Cells Not Reportable 12/25/19 03:47 Toxic Granulation Not Reportable 12/25/19 03:47 Toxic Vacuolation Not Reportable 12/25/19 03:47 Dohle Bodies Not Reportable 12/25/19 03:47 Pelger-Huet Anomaly Not Reportable 12/25/19 03:47 Dominique Rods Not Reportable 12/25/19 03:47 Platelet Estimate Consistent w auto 12/25/19 03:47 Clumped Platelets Not Reportable 12/25/19 03:47 Plt Clumps, EDTA Not Reportable 12/25/19 03:47 Large Platelets Not Reportable 12/25/19 03:47 Giant Platelets Not Reportable 12/25/19 03:47 Platelet Satelliting Not Reportable 12/25/19 03:47 Plt Morphology Comment Not Reportable 12/25/19 03:47 RBC Morphology Not Reportable 12/25/19 03:47 Dimorphic RBCs Not Reportable 12/25/19 03:47 Polychromasia Not Reportable 12/25/19 03:47 Hypochromasia Not Reportable 12/25/19 03:47 Poikilocytosis Not Reportable 12/25/19 03:47 Anisocytosis 1+ 12/25/19 03:47 Microcytosis Not Reportable 12/25/19 03:47 Macrocytosis Not Reportable 12/25/19 03:47 Spherocytes Not Reportable 12/25/19 03:47 Pappenheimer Bodies Not Reportable 12/25/19 03:47 Sickle Cells Not Reportable 12/25/19 03:47 Target Cells Not Reportable 12/25/19 03:47 Tear Drop Cells Not Reportable 12/25/19 03:47 Ovalocytes Not Reportable 12/25/19 03:47 Helmet Cells Not Reportable 12/25/19 03:47 [place] Bodies Not Reportable 12/25/19 03:47 [place] Rings Not Reportable 12/25/19 03:47 Jamshid Cells Not Reportable 12/25/19 03:47 Bite Cells Not Reportable 12/25/19 03:47 Crenated Cell Not Reportable 12/25/19 03:47 Elliptocytes Not Reportable 12/25/19 03:47 Acanthocytes (Spur) Not Reportable 12/25/19 03:47 Rouleaux Not Reportable 12/25/19 03:47 Hemoglobin C Crystals Not Reportable 12/25/19 03:47 Schistocytes Not Reportable 12/25/19 03:47 Malaria parasites Not Reportable 12/25/19 03:47 [place]gg Bodies Not Reportable 12/25/19 03:47 Hem Pathologist Commnt No 12/25/19 03:47 PT 17.0 Sec. (12.2-14.9) H 11/23/19 03:47 INR 1.36 (0.87-1.13) H 11/23/19 03:47 APTT 128.2 Sec. (24.2-36.6) H* 11/23/19 03:47 Heparin Anti-Xa Level 0.31 U.I./ml (0.3-0.7) 11/23/19 09:03 ABG pH 7.433 pH Units (7.350-7.450) 03/08/20 13:25 ABG pCO2 40.2 mm Hg 03/08/20 13:25 ABG pO2 71.1 mm Hg (80.0-90.0) L 03/08/20 13:25 ABG HCO3 26.2 mmol/L (20.0-26.0) H 03/08/20 13:25 ABG O2 Saturation 97.0 % (95.0-99.0) 03/08/20 13:25 ABG O2 Content 11.0 (0.0-44) 03/08/20 13:25 ABG Base Excess 1.8 mmol/L (-2.0-3.0) 03/08/20 13:25 ABG Hemoglobin 8.2 gm/dl (12.0-16.0) L 03/08/20 13:25 ABG Carboxyhemoglobin 1.7 % (0.0-5.0) 03/08/20 13:25 ABG Methemoglobin 0.5 % (0.0-1.5) 03/08/20 13:25 Oxyhemoglobin 94.8 % (95.0-99.0) L 03/08/20 13:25 FiO2 21 % 03/08/20 13:25 Sodium 140 mmol/L (137-145) 05/01/20 07:57 Potassium 4.6 mmol/L (3.6-5.0) 05/01/20 07:57 Chloride 101.7 mmol/L (98-107) 05/01/20 07:57 Carbon Dioxide 27 mmol/L (22-30) 05/01/20 07:57 Anion Gap 16 mmol/L 05/01/20 07:57 BUN 21 mg/dL (7-17) H 05/01/20 07:57 Creatinine 0.7 mg/dL (0.6-1.2) 05/01/20 07:57 Estimated GFR > 60 ml/min 05/01/20 07:57 BUN/Creatinine Ratio 30 % 05/01/20 07:57 Glucose 96 mg/dL (65-100) 05/01/20 07:57 POC Glucose 172 (70-105) H 04/24/20 18:35 Lactic Acid 1.80 mmol/L (0.7-2.0) 11/25/19 05:05 Calcium 10.6 mg/dL (8.4-10.2) H 05/01/20 07:57 Ionized Calcium 4.5 mg/dL (4.8-5.6) L 11/23/19 06:32 Phosphorus 4.20 mg/dL (2.5-4.5) D 11/28/19 08:59 Magnesium 1.90 mg/dL (1.7-2.3) 02/28/20 03:40 Total Bilirubin 0.40 mg/dL (0.1-1.2) 12/13/19 07:48 AST 27 units/L (5-40) 12/13/19 07:48 ALT 26 units/L (7-56) 12/13/19 07:48 Alkaline Phosphatase 316 units/L (35-129) H 12/13/19 07:48 Ammonia 42.0 umol/L (25-60) 11/29/19 13:41 Total Creatine Kinase 139 units/L (30-135) H 11/22/19 23:27 CK-MB (CK-2) 8.3 ng/mL (0.0-4.0) H 11/22/19 23:27 CK-MB (CK-2) Rel Index 5.9 (0-4) H 11/22/19 23:27 Troponin T < 0.010 ng/mL (0.00-0.029) 11/22/19 23:27 Total Protein 6.8 g/dL (6.3-8.2) 12/13/19 07:48 Albumin 2.4 g/dL (3.9-5) L 12/13/19 07:48 Albumin/Globulin Ratio 0.5 % 12/13/19 07:48 Lipase 18 units/L (13-60) 11/23/19 00:34 Procalcitonin 1.09 ng/mL (<0.15) 11/23/19 04:53 TSH 1.140 mlU/mL (0.270-4.200) 04/30/20 15:06 Free T4 1.08 ng/dL (0.76-1.46) 02/12/20 07:36 Urine Color Yellow (Yellow) 12/16/19 Unknown Urine Turbidity Slightly-cloudy (Clear) 12/16/19 Unknown Urine pH 5.0 (5.0-7.0) 12/16/19 Unknown Ur Specific [place] 1.018 (1.003-1.030) 12/16/19 Unknown Urine Protein 30 mg/dl mg/dL (Negative) 12/16/19 Unknown Urine Glucose (UA) Neg mg/dL (Negative) 12/16/19 Unknown Urine Ketones Neg mg/dL (Negative) 12/16/19 Unknown Urine Blood Sm (Negative) 12/16/19 Unknown Urine Nitrite Neg (Negative) 12/16/19 Unknown Urine Bilirubin Neg (Negative) 12/16/19 Unknown Urine Urobilinogen < 2.0 mg/dL (<2.0) 12/16/19 Unknown Ur Leukocyte Esterase Neg (Negative) 12/16/19 Unknown Urine WBC (Auto) 6.0 /HPF (0.0-6.0) 12/16/19 Unknown Urine RBC (Auto) 9.0 /HPF (0.0-6.0) 12/16/19 Unknown U Epithel Cells (Auto) < 1.0 /HPF (0-13.0) 12/16/19 Unknown Urine Bacteria (Auto) 2+ /HPF (Negative) 11/22/19 23:17 Hyaline Casts 3 /LPF 12/16/19 Unknown Granular Casts 3 /LPF 12/16/19 Unknown Urine Mucus Few /HPF 12/16/19 Unknown Vancomycin Trough 33.8 ug/mL (5.0-20.0) H 12/21/19 08:56 Random Vancomycin 16.2 ug/mL (0-40.0) 12/24/19 04:31 Salicylates < 0.3 mg/dL (2.8-20.0) L 11/22/19 23:27 Urine Opiates Screen Presumptive negative 11/22/19 23:17 Urine Methadone Screen Presumptive negative 11/22/19 23:17 Acetaminophen < 5.0 ug/mL (10.0-30.0) L 11/22/19 23:27 Ur Barbiturates Screen Presumptive negative 11/22/19 23:17 Ur Phencyclidine Scrn Presumptive negative 11/22/19 23:17 Ur Amphetamines Screen Presumptive negative 11/22/19 23:17 U Benzodiazepines Scrn Presumptive negative 11/22/19 23:17 Urine Cocaine Screen Presumptive negative 11/22/19 23:17 U Marijuana (THC) Screen Presumptive negative 11/22/19 23:17 Drugs of Abuse Note Disclamer 11/22/19 23:17 Plasma/Serum Alcohol 0.08 % (0-0.07) H 11/22/19 23:27 Coronavirus (PCR) Negative (Negative) 02/05/20 07:50 Hepatitis A IgM Ab Non-reactive (NonReactive) 11/23/19 01:19 Hep Bs Antigen Non-reactive (Negative) 11/23/19 01:19 Hep B Core IgM Ab Non-reactive (NonReactive) 11/23/19 01:19 Hepatitis C Antibody Non-reactive (NonReactive) 11/23/19 01:19 Blood Type O POSITIVE 12/21/19 14:54 Antibody Screen Negative 12/21/19 14:54 Crossmatch See Detail 12/21/19 14:54 - Diagnostic Impressions Diagnostic Impressions: Echocardiogram 11/23/19 03:58 Transthoracic Echocardiogram Indication: Cardiac arrest BP: 131/89 HR: 115 Conclusions *The study quality is technically difficult. *Global left ventricular wall motion and contractility are within normal limits. *The estimated ejection fraction is 55-60%. *Abnormal left ventricular diastolic filling is observed, consistent with impaired relaxation. *There is no pericardial effusion. Findings Procedure Info: The study quality is technically difficult. The study was technically limited due to the patient's inability to lay in the left lateral decubitus position. Left Ventricle: The left ventricular chamber size is normal. There is no left ventricular hypertrophy. Global left ventricular wall motion and contractility are within normal limits. Global left ventricular systolic function is normal. The estimated ejection fraction is 55-60%. Abnormal left ventricular diastolic filling is observed, consistent with impaired relaxation. Left Atrium: The left atrial chamber size is normal. Aortic Valve: The aortic valve leaflets are mildly thickened. Mitral Valve: The mitral valve leaflets are mildly thickened. There is no evidence of mitral regurgitation. Tricuspid Valve: The tricuspid valve leaflets are normal. There is trace tricuspid regurgitation. The right ventricular systolic pressure is calculated at 33 mmHg. Pulmonic Valve: The pulmonic valve appears normal. Pericardium: The pericardium appears normal. There is no pericardial effusion. Aorta: The aorta appears normal. Venous: The inferior vena cava appears normal in size. Measurements Chambers 2D Name Value Normal Range IVSd (2D) 0.94 cm (0.6 - 1.1) LVPWd (2D) 0.81 cm (0.6 - 1.1) LVIDd (2D) 3.6 cm (3.7 - 5.6) LVIDs (2D) 2.27 cm (2 - 3.8) LV FS (2D) 36.93 % - EF Teichholz (2D) 67.76 % - Ao root diameter (2D) 3.03 cm (2 - 3.7) Volumes/Mass Name Value Normal Range LA ESV SP 4CH (A/L) 16.89 ml - LA ESV SP 4CH (MOD) 15.52 ml - Diastolic/Systolic Function Name Value Normal Range MV E-wave Vmax 0.55 m/sec - MV deceleration time 200.89 msec - MV A-wave Vmax 0.68 m/sec - MV E:A ratio 0.82 ratio - Aortic Valve Name Value Normal Range AV Vmax 1.1 m/sec - AV VTI 15.9 cm - AV peak gradient 4.86 mmHg - AV mean gradient 2.59 mmHg - LVOT diameter 2 cm - LVOT Vmax 1.03 m/sec - LVOT VTI 15.87 cm - LVOT peak gradient 4.24 mmHg - LVOT mean gradient 2.41 mmHg - SV LVOT 49.77 ml - JOSÉ MIGUEL (continuity Vmax) 2.93 cm2 - JOSÉ MIGUEL (continuity VTI) 3.13 cm2 - Tricuspid Valve Name Value Normal Range TR Vmax 2.74 m/sec - TR peak gradient 303 mmHg - RAP 3 mmHg - RVSP 33 mmHg - IVC diameter 1.77 cm (1.2 - 2.3) Pulmonic Valve/Qp:Qs Name Value Normal Range PV Vmax 0.77 m/sec - PV peak gradient 2.4 mmHg - PV acceleration time 114.18 msec - Echocardiogram Limited Views 12/17/19 14:53 Transthoracic Echocardiogram Indication: R/O Vegetations BP: 144/83 HR: 133 Conclusions *Global left ventricular systolic function is mildly decreased. *The estimated ejection fraction is 45-50%. *A trivial pericardial effusion is visualized. Findings Left Ventricle: The left ventricular chamber size is normal. Global left ventricular systolic function is mildly decreased. The estimated ejection fraction is 45-50%. Left Atrium: The left atrial chamber size is normal. Right Ventricle: The right ventricular cavity size is normal. Right Atrium: The right atrial cavity size is normal. Aortic Valve: The aortic valve is not well visualized. There is no evidence of aortic regurgitation. Mitral Valve: The mitral valve leaflets are mildly thickened. There is trace of mitral regurgitation. Tricuspid Valve: The tricuspid valve leaflets are mildly thickened. There is trace tricuspid regurgitation. The right ventricular systolic pressure is calculated at 29 mmHg. Pulmonic Valve: The pulmonic valve is not well visualized. There is no evidence of pulmonic regurgitation. Pericardium: A trivial pericardial effusion is visualized. Aorta: There is no dilatation of the ascending aorta. There is no dilatation of the aortic root. Venous: The inferior vena cava appears normal in size. There is a greater than 50% respiratory change in the inferior vena cava dimension. Measurements Chambers 2D Name Value Normal Range IVSd (2D) 0.83 cm (0.6 - 1.1) LVPWd (2D) 0.98 cm (0.6 - 1.1) LVIDd (2D) 3.71 cm (3.7 - 5.6) LVIDs (2D) 2.93 cm (2 - 3.8) LV FS (2D) 21.12 % - EF Teichholz (2D) 43.71 % - Ao root diameter (2D) 3.02 cm (2 - 3.7) Volumes/Mass Name Value Normal Range LA ESV SP 4CH (A/L) 36.8 ml - LA ESV SP 2CH (A/L) 45.89 ml - LA ESV BP (A/L) 42.35 ml - LA ESV BP (A/L) index 26.63 ml/m2 - LA ESV SP 4CH (MOD) 34.42 ml - LA ESV SP 2CH (MOD) 44.21 ml - LA ESV BP (MOD) 39.82 ml - LA ESV BP (MOD) index 25.05 ml/m2 - Aortic Valve Name Value Normal Range LVOT diameter 1.63 cm - Tricuspid Valve Name Value Normal Range TR Vmax 2.56 m/sec - TR peak gradient 26 mmHg - RAP 3 mmHg - RVSP 29 mmHg - IVC diameter 1.83 cm (1.2 - 2.3) [place]/IV: Voiding Method Incontinent IV Catheter Type [Forearm] Peripheral IV IV Catheter Type [Left Forearm INT / Saline Lock ] IV Catheter Type [Right INT / Saline Lock Antecubital] IV Catheter Type [Right Hand] INT / Saline Lock IV Catheter Type [Right Wrist] Peripheral IV IV Catheter Type [Left Wrist] Peripheral IV IV Catheter Type [Left Peripheral IV Antecubital] IV Catheter Type [Right INT / Saline Lock Forearm] IV Catheter Type [Left Hand] INT / Saline Lock Active Medications - Current Medications Current Medications: Generic Name Dose Route Start Last Admin Trade Name Freq PRN Reason Stop Dose Admin Albuterol 2.5 mg 03/25/20 19:25 04/07/20 08:59 Proventil IH 2.5 mg Q4HRT PRN Administration Shortness Of Breath Lipase/Protease/Amylase 1 each 11/23/19 11:[address] 10,500 Unit FEEDTUBE PRN PRN Use w/ sod bicarb for FT Bisacodyl 10 mg 02/06/20 13:57 Dulcolax UT QDAY PRN Constipation unrelieved by MOM Enoxaparin Sodium 40 mg 03/07/20 22:00 05/01/20 22:23 Enoxaparin SUB-Q 40 mg QDAY@2200 LUCHO Administration Folic Acid 1 mg 04/27/20 10:00 05/02/20 10:07 Folvite PO 1 mg QDAY LUCHO Administration Glycopyrrolate 2 mg 04/29/20 14:00 05/02/20 13:38 Robinul PO 2 mg TID LUCHO Administration Guaifenesin 10 ml 04/28/20 05:11 04/28/20 21:41 Guaifenesin Dm Syrup PO 10 ml Q6H PRN Administration Cough Haloperidol Lactate 5 mg 03/05/20 09:22 04/30/20 22:21 Haldol IM 5 mg Q6H PRN Administration Agitation Hydroxyzine Pamoate 25 mg 12/06/19 10:00 05/02/20 10:04 Vistaril PO 25 mg BID LUCHO Administration Lansoprazole 30 mg 11/27/19 10:00 05/02/20 10:04 Prevacid Solutab FEEDTUBE 30 mg QDAY LUCHO Administration Levetiracetam 500 mg 11/29/19 10:00 05/02/20 10:04 Keppra PO 500 mg BID LUCHO Administration Mirtazapine 30 mg 12/06/19 10:00 05/02/20 10:04 Remeron PO 30 mg DAILY LUCHO Administration Nicotine 21 mg 02/16/20 13:00 05/02/20 10:04 Habitrol TD 21 mg QDAY LUCHO Administration Ondansetron HCl 4 mg 12/10/19 07:53 05/02/20 00:47 Zofran IV 4 mg Q4H PRN Administration Nausea And Vomiting Polyethylene Glycol 17 gm 02/06/20 13:57 Miralax 3350 PO QDAY PRN Constipation Quetiapine Fumarate 100 mg 03/06/20 10:00 05/02/20 10:04 Seroquel FEEDTUBE 100 mg BID LUCHO Administration Scopolamine 1 each 02/08/20 15:00 05/02/20 10:04 Transderm-Scop TD 1 each Q3D LUCHO Administration Sertraline HCl 25 mg 01/01/20 10:00 05/02/20 10:04 Zoloft PO 25 mg QDAY LUCHO Administration Simple Syrup 15 ml 11/23/19 11:50 Simple Syrup FEEDTUBE PRN PRN Hypoglycemia BG<70 Simple Syrup 30 ml 11/23/19 11:50 Simple Syrup FEEDTUBE PRN PRN Hypoglycemia Sodium Bicarbonate 325 mg 11/23/19 11:50 04/30/20 12:27 Sodium Bicarbonate FEEDTUBE 325 mg PRN PRN Administration For Clogged Feeding Tube Nutrition/Malnutrition Assess - Dietary Evaluation Nutrition/Malnutrition Findings: Nutrition Notes Start: 11/23/19 11:29 Freq: Status: Active Protocol: Document 04/23/20 14:33 EVELIA (Rec: 04/23/20 14:35 EVELIA [id number] [email or web address]) Nutrition Notes Initial or Follow up Reassessment Other Pertinent Diagnosis s/p Cardiac arrest, acute metabolic encephalopathy Current Diet Mech soft with chopped meats Labs/Tests Reviewed Pertinent Medications Reviewed Height 5 ft 6 in Weight 43.5 kg [place] Body Weight (kg) 59.09 BMI 15.5 Subjective/Other Information Pt has consumed 79% of meals since last assessment. Percent of energy/protein needs met: 100% energy 100% pro Burn Absent Trauma Absent Current % PO Good (75-100%) #2 Nutrition Diagnosis Malnutrition Diagnosis Progress(for reassessment Continues documentation) Is patient on ventilator? No Is Patient Ambulatory and/or Out of Bed No REE-([facility]-confined to bed) 1260.864 Kcal/Kg value to use for calculation 35 Approximate Energy Requirements Using 1523 kcal/Kg Calculation Used for Recommendations Kcal/kg Additional Notes Pro needs 1.2-1.5g/k-65g/ day Fluid needs 1ml/kcal Nutrition Intervention Goal #1 PO intake of meals plus ONS to meet 100% energy and pro needs Goal #2 Wt maintenance and/or gain Revisit per MD consult or patient Sign Off request:
[2020-05-02] MEDS: ENOXAPARIN 40 MG/0.4 ML INJ SUB-Q SCH (21:15)
--- NOTE | 2020-05-03 08:40 | Progress Note ---
Assessment and Plan Assessment and plan: 54-year-old female with a past medical history of Hypertension, Depression, Tobacco use Disorder, Alcohol use Disorder as confirmed by Daughter and pt's mother presents to the hospital status post cardiac arrest at home. EMS found pt in [facility]. They were unable to intubate patient with a ET tube because she was clenching down therefore Joe airway placed. Per the ED physician who evaluated pt, Patient presented with a pulse, intermittent respirations, and bagging support via Joe airway with O2 sat of 100%. Accu-Chek of 71 obtained by EMS. She was intubated in the ER and called for admission. Following admission patient was diagnosed with anoxic brain injury, sepsis with MRSA bacteremia and MSSA pneumonia, alcoholic liver disease. Family member initially wished for full code then changed to DNR, patient treated with IV antibiotics for sepsis, status post trach and PEG on 12/13/19. Weaned off from the vent and put on T- piece. Patient is uninsured, waiting for placement, guarded prognosis. 03/07: Returning to service no acute changes are noted. Continue current management while awaiting placement. Intermittent labs. Base of neck also around tracheostomy tube preventing downgrading. Continue appropriate wound care. 03/08: Plan of care unchanged continues on aerosol trach collar 28% of oxygen. Continue wound care management placement still pending status decision. 03/09: Continue current treatment plan. Continue aspiration precaution 03/10: Continue current management, Restraints as patient still pulling, awaiting placement 03/11: Continue supportive care, intermittent suctioning and pulmonary toilet. awaiting placement. 03/12: Continue supportive care, Give a bolus of fluids due to Hypercalcemia, Monitor Hyperkalemia with labs in am, No arrhythmia. Patient vomiting, concern for aspiration, Chest xray ordered and no active disease noted. Keep HOB >45% 03/13: No evidence of aspiration on xray. Continue supportive care. 03/14: Continue supportive care. Capping trials to start. Discussed with patients nursing and case management to continue daily PT by the Rehab team. 03/15: Discussed again with staff to start capping trial. 03/16: Do not see any indication the capping trial has started will discuss with respiratory therapist. Continue restraints. Still awaiting family decision patient has had some remarkable improvement considering the fact that she was able to stay around night without restraints. We will continue daily trial of this method. Discussed plan with nursing staff 03/17: Continue current care. Currently continue restraints. Continue current management. Continue physical therapy daily. 03/18: Capping trial successful and will possibly get decannulated today. Continue placement. 03/19: Now decannulated and doing well. Begin discharge planning. 03/20: Stable, no new complaints. 03/21: No new complaints. Continue supportive 03/22: No new complaints, still with some confusion, and agitation requiring restraints. Will require daily PT/OT and continue to work with Case management for placement 03/23: continue current management, daily PT/OT. stoma care. No new seizure, slow but gradual improvement noted daily 03/24: Mr. Amaya is a 55-year-old female who presented to the hospital was admitted post cardiac arrest at home she has remarkably done well been extubated and decannulated with stoma healing. She still does experience some intermittent delirious process and as a result is on restraints. I have discussed with nursing staff to see if they can provide a sitter for her and continue daily PT as this will aid in reintroducing her to the community. Case management is working on placement for her. Will check labs in a.m. 04/29: Returning to services, please see other notes. Patient stable and continues to improve. STILL WITH ALTERED MENTAL STATUS, SHE STILL REQUIRES RESTRAINTS, CASE MANAGEMENT WORKING ON PLACEMENT 04/30: Clinically stable continue to monitor still with altered sensorium still awaiting placement. Will check intermittent labs. 05/02: Patient was seen by neurologist no new information noted no further recommendation recommended. Patient continues to be alert but still confused. Remains on restraints for the same reason. Continue daily restrain break while monitoring for fall. Sclera status remains stable. 05/03: At this time is safe to say that she does have dementia from anoxic brain injury although has periods of lucidness. We will continue current management. Discussed with case management about possible guardianship. As family is not willing to take the patient home. / Anoxic brain injury: suspected CT head: No acute abnormality. EEG ordered showed Generalized slowing. No seizures or epileptiform activity. -Patient now opening her eyes, can speak and able to follow command -As needed haldol for agitation /Acute Respiratory failure -due to MSSA PNA -s/p intubation, s/p trach and PEG on 12/12 with mechanical ventilation, now on T-piece - CTA was done and negative for PE, - Echo quality is poor, showed diastolic dysfunction - continue weaning as tolerated -Continue appropriate and adequate tracheostomy care /Tracheostomy site ulceration -Continue appropriate wound management try to keep area dry. /Anemia, microcytic - Status post 3 units PRBC transfusion, H&H low stable /Acute metabolic encephalopathy/toxic encephalopathy due to the above - cont supportive care /Hyperammonemia - likely from liver disease related to EtOH abuse - Patient had elevated ammonia level and treated with lactulose /Metabolic Acidosis -Alcohol ketoacidosis vs hypoprofusion -Continue to monitor /ELevated LFTs, stable now - due to ischemic hepatitis. /Leucocytosis with sepsis - Source MRSA bacteremia and MSSA pneumonia. UA showed pyuria. RUQ US showed no ascites. - Repeat TTE negative for vegetation. Completed 7 days of Ceftriaxone on 11/29/2019. -Treated with Abx vancomycin 1 gm IV q 12 hour total 2 week till 12/30/2019 /Severe protein calorie malnutrition Dietitian consult to assist in management. /MSSA pneumonia: Status post vancomycin till 12/30/2019 /Alcohol use Disorder - given ongoing Alcohol use almost daily, s/p IV Thiamine - monitor /Severe hypokalemia -Repleted /Seizure disorder: treat with Keppra /H. Influenzae, tracheobronchitis, treated with abx /Moderate to severe fecal impaction - will add stool softner DNR CODE STATUS Disposition: prognosis guarded. Family okay for DNR, PT recommended subacute rehab, discharge pending on placement. Negative for COVID 19 History Interval history: Patient seen and examined, resting comfortable. No new complaints. Some periods of mental status improvement Hospitalist Physical - Physical exam Narrative exam: General appearance: Present: Appears older than stated age, lying down - EENT Eyes: no scleral icterus, no conjunctival injection, pupil not reactive ENT: clear oral mucosa, dentition normal, no oropharyngeal erythema Ears: bilateral: normal - Neck Neck: stoma clena and dry - Respiratory Respiratory effort: other dressing over the stoma Respiratory: bilateral: rales - Cardiovascular Rhythm: regular Heart Sounds: Present: S1 & S2. Absent: gallop, rub Extremities: pulses intact, No edema, normal color - Gastrointestinal General gastrointestinal: Present: soft, non-tender, non-distended, normal bowel sounds - Integumentary Integumentary: clear, warm, dry - Musculoskeletal Musculoskeletal: No joint swelling or tenderness - Neurologic Neurologic: other (2+ reflexes throughout). respond to commend answers questions appropriately today - Psychiatric Psychiatric: co-operative - Constitutional Vitals: Temp Pulse Resp BP Pulse Ox 98.1 F 72 18 138/88 98 05/03/20 07:50 05/03/20 07:50 05/03/20 07:50 05/03/20 07:50 05/03/20 07:50 General appearance: Present: no acute distress HEART Score - HEART Score Troponin: Troponin T < 0.010 ng/mL (0.00-0.029) 11/22/19 23:27 Results - Labs CBC & Chem 7: 05/01/20 07:57 05/01/20 07:57 Labs: Laboratory Last Values WBC 6.8 K/mm3 (4.5-11.0) 05/01/20 07:57 RBC 3.90 M/mm3 (3.65-5.03) 05/01/20 07:57 Hgb 11.4 gm/dl (10.1-14.3) 05/01/20 07:57 Hct 34.9 % (30.3-42.9) 05/01/20 07:57 MCV 90 fl (79-97) 05/01/20 07:57 MCH 29 pg (28-32) 05/01/20 07:57 MCHC 33 % (30-34) 05/01/20 07:57 RDW 14.5 % (13.2-15.2) 05/01/20 07:57 Plt Count 498 K/mm3 (140-440) H 05/01/20 07:57 Lymph % (Auto) 25.9 % (13.4-35.0) 04/16/20 09:02 [place] % (Auto) 7.4 % (0.0-7.3) H 04/16/20 09:02 Eos % (Auto) 0.9 % (0.0-4.3) 04/16/20 09:02 Baso % (Auto) 0.8 % (0.0-1.8) 04/16/20 09:02 Lymph # 1.7 K/mm3 (1.2-5.4) 04/16/20 09:02 [place] # 0.5 K/mm3 (0.0-0.8) 04/16/20 09:02 Eos # 0.1 K/mm3 (0.0-0.4) 04/16/20 09:02 Baso # 0.1 K/mm3 (0.0-0.1) 04/16/20 09:02 Add Manual Diff Complete 12/25/19 03:47 Total Counted 200 12/25/19 03:47 Seg Neutrophils % 65.0 % (40.0-70.0) 04/16/20 09:02 Seg Neuts % (Manual) 97.5 % (40.0-70.0) H 12/25/19 03:47 Band Neutrophils % 0 % 12/25/19 03:47 Lymphocytes % (Manual) 1.0 % (13.4-35.0) L 12/25/19 03:47 Reactive Lymphs % (Man) 0 % 12/25/19 03:47 Monocytes % (Manual) 1.5 % (0.0-7.3) 12/25/19 03:47 Eosinophils % (Manual) 0 % (0.0-4.3) 12/25/19 03:47 Basophils % (Manual) 0 % (0.0-1.8) 12/25/19 03:47 Metamyelocytes % 0 % 12/25/19 03:47 Myelocytes % 0 % 12/25/19 03:47 Promyelocytes % 0 % 12/25/19 03:47 Blast Cells % 0 % 12/25/19 03:47 Nucleated RBC % Not Reportable 12/25/19 03:47 Seg Neutrophils # 4.4 K/mm3 (1.8-7.7) 04/16/20 09:02 Seg Neutrophils # Man 35.3 K/mm3 (1.8-7.7) H 12/25/19 03:47 Band Neutrophils # 0.0 K/mm3 12/25/19 03:47 Lymphocytes # (Manual) 0.4 K/mm3 (1.2-5.4) L 12/25/19 03:47 Abs React Lymphs (Man) 0.0 K/mm3 12/25/19 03:47 Monocytes # (Manual) 0.5 K/mm3 (0.0-0.8) 12/25/19 03:47 Eosinophils # (Manual) 0.0 K/mm3 (0.0-0.4) 12/25/19 03:47 Basophils # (Manual) 0.0 K/mm3 (0.0-0.1) 12/25/19 03:47 Metamyelocytes # 0.0 K/mm3 12/25/19 03:47 Myelocytes # 0.0 K/mm3 12/25/19 03:47 Promyelocytes # 0.0 K/mm3 12/25/19 03:47 Blast Cells # 0.0 K/mm3 12/25/19 03:47 Pathologist Review 12/13/19 07:48 WBC Morphology Not Reportable 12/25/19 03:47 Hypersegmented Neuts Not Reportable 12/25/19 03:47 Hyposegmented Neuts Not Reportable 12/25/19 03:47 Hypogranular Neuts Not Reportable 12/25/19 03:47 Smudge Cells Not Reportable 12/25/19 03:47 Toxic Granulation Not Reportable 12/25/19 03:47 Toxic Vacuolation Not Reportable 12/25/19 03:47 Dohle Bodies Not Reportable 12/25/19 03:47 Pelger-Huet Anomaly Not Reportable 12/25/19 03:47 Dominique Rods Not Reportable 12/25/19 03:47 Platelet Estimate Consistent w auto 12/25/19 03:47 Clumped Platelets Not Reportable 12/25/19 03:47 Plt Clumps, EDTA Not Reportable 12/25/19 03:47 Large Platelets Not Reportable 12/25/19 03:47 Giant Platelets Not Reportable 12/25/19 03:47 Platelet Satelliting Not Reportable 12/25/19 03:47 Plt Morphology Comment Not Reportable 12/25/19 03:47 RBC Morphology Not Reportable 12/25/19 03:47 Dimorphic RBCs Not Reportable 12/25/19 03:47 Polychromasia Not Reportable 12/25/19 03:47 Hypochromasia Not Reportable 12/25/19 03:47 Poikilocytosis Not Reportable 12/25/19 03:47 Anisocytosis 1+ 12/25/19 03:47 Microcytosis Not Reportable 12/25/19 03:47 Macrocytosis Not Reportable 12/25/19 03:47 Spherocytes Not Reportable 12/25/19 03:47 Pappenheimer Bodies Not Reportable 12/25/19 03:47 Sickle Cells Not Reportable 12/25/19 03:47 Target Cells Not Reportable 12/25/19 03:47 Tear Drop Cells Not Reportable 12/25/19 03:47 Ovalocytes Not Reportable 12/25/19 03:47 Helmet Cells Not Reportable 12/25/19 03:47 Frias-Lyons Bodies Not Reportable 12/25/19 03:47 [place] Rings Not Reportable 12/25/19 03:47 Jamshid Cells Not Reportable 12/25/19 03:47 Bite Cells Not Reportable 12/25/19 03:47 Crenated Cell Not Reportable 12/25/19 03:47 Elliptocytes Not Reportable 12/25/19 03:47 Acanthocytes (Spur) Not Reportable 12/25/19 03:47 Rouleaux Not Reportable 12/25/19 03:47 Hemoglobin C Crystals Not Reportable 12/25/19 03:47 Schistocytes Not Reportable 12/25/19 03:47 Malaria parasites Not Reportable 12/25/19 03:47 Gregg Bodies Not Reportable 12/25/19 03:47 Hem Pathologist Commnt No 12/25/19 03:47 PT 17.0 Sec. (12.2-14.9) H 11/23/19 03:47 INR 1.36 (0.87-1.13) H 11/23/19 03:47 APTT 128.2 Sec. (24.2-36.6) H* 11/23/19 03:47 Heparin Anti-Xa Level 0.31 U.I./ml (0.3-0.7) 11/23/19 09:03 ABG pH 7.433 pH Units (7.350-7.450) 03/08/20 13:25 ABG pCO2 40.2 mm Hg 03/08/20 13:25 ABG pO2 71.1 mm Hg (80.0-90.0) L 03/08/20 13:25 ABG HCO3 26.2 mmol/L (20.0-26.0) H 03/08/20 13:25 ABG O2 Saturation 97.0 % (95.0-99.0) 03/08/20 13:25 ABG O2 Content 11.0 (0.0-44) 03/08/20 13:25 ABG Base Excess 1.8 mmol/L (-2.0-3.0) 03/08/20 13:25 ABG Hemoglobin 8.2 gm/dl (12.0-16.0) L 03/08/20 13:25 ABG Carboxyhemoglobin 1.7 % (0.0-5.0) 03/08/20 13:25 ABG Methemoglobin 0.5 % (0.0-1.5) 03/08/20 13:25 Oxyhemoglobin 94.8 % (95.0-99.0) L 03/08/20 13:25 FiO2 21 % 03/08/20 13:25 Sodium 140 mmol/L (137-145) 05/01/20 07:57 Potassium 4.6 mmol/L (3.6-5.0) 05/01/20 07:57 Chloride 101.7 mmol/L (98-107) 05/01/20 07:57 Carbon Dioxide 27 mmol/L (22-30) 05/01/20 07:57 Anion Gap 16 mmol/L 05/01/20 07:57 BUN 21 mg/dL (7-17) H 05/01/20 07:57 Creatinine 0.7 mg/dL (0.6-1.2) 05/01/20 07:57 Estimated GFR > 60 ml/min 05/01/20 07:57 BUN/Creatinine Ratio 30 % 05/01/20 07:57 Glucose 96 mg/dL (65-100) 05/01/20 07:57 POC Glucose 172 (70-105) H 04/24/20 18:35 Lactic Acid 1.80 mmol/L (0.7-2.0) 11/25/19 05:05 Calcium 10.6 mg/dL (8.4-10.2) H 05/01/20 07:57 Ionized Calcium 4.5 mg/dL (4.8-5.6) L 11/23/19 06:32 Phosphorus 4.20 mg/dL (2.5-4.5) D 11/28/19 08:59 Magnesium 1.90 mg/dL (1.7-2.3) 02/28/20 03:40 Total Bilirubin 0.40 mg/dL (0.1-1.2) 12/13/19 07:48 AST 27 units/L (5-40) 12/13/19 07:48 ALT 26 units/L (7-56) 12/13/19 07:48 Alkaline Phosphatase 316 units/L (35-129) H 12/13/19 07:48 Ammonia 42.0 umol/L (25-60) 11/29/19 13:41 Total Creatine Kinase 139 units/L (30-135) H 11/22/19 23:27 CK-MB (CK-2) 8.3 ng/mL (0.0-4.0) H 11/22/19 23:27 CK-MB (CK-2) Rel Index 5.9 (0-4) H 11/22/19 23:27 Troponin T < 0.010 ng/mL (0.00-0.029) 11/22/19 23:27 Total Protein 6.8 g/dL (6.3-8.2) 12/13/19 07:48 Albumin 2.4 g/dL (3.9-5) L 12/13/19 07:48 Albumin/Globulin Ratio 0.5 % 12/13/19 07:48 Lipase 18 units/L (13-60) 11/23/19 00:34 Procalcitonin 1.09 ng/mL (<0.15) 11/23/19 04:53 TSH 1.140 mlU/mL (0.270-4.200) 04/30/20 15:06 Free T4 1.08 ng/dL (0.76-1.46) 02/12/20 07:36 Urine Color Yellow (Yellow) 12/16/19 Unknown Urine Turbidity Slightly-cloudy (Clear) 12/16/19 Unknown Urine pH 5.0 (5.0-7.0) 12/16/19 Unknown Ur Specific [place] 1.018 (1.003-1.030) 12/16/19 Unknown Urine Protein 30 mg/dl mg/dL (Negative) 12/16/19 Unknown Urine Glucose (UA) Neg mg/dL (Negative) 12/16/19 Unknown Urine Ketones Neg mg/dL (Negative) 12/16/19 Unknown Urine Blood Sm (Negative) 12/16/19 Unknown Urine Nitrite Neg (Negative) 12/16/19 Unknown Urine Bilirubin Neg (Negative) 12/16/19 Unknown Urine Urobilinogen < 2.0 mg/dL (<2.0) 12/16/19 Unknown Ur Leukocyte Esterase Neg (Negative) 12/16/19 Unknown Urine WBC (Auto) 6.0 /HPF (0.0-6.0) 12/16/19 Unknown Urine RBC (Auto) 9.0 /HPF (0.0-6.0) 12/16/19 Unknown U Epithel Cells (Auto) < 1.0 /HPF (0-13.0) 12/16/19 Unknown Urine Bacteria (Auto) 2+ /HPF (Negative) 11/22/19 23:17 Hyaline Casts 3 /LPF 12/16/19 Unknown Granular Casts 3 /LPF 12/16/19 Unknown Urine Mucus Few /HPF 12/16/19 Unknown Vancomycin Trough 33.8 ug/mL (5.0-20.0) H 12/21/19 08:56 Random Vancomycin 16.2 ug/mL (0-40.0) 12/24/19 04:31 Salicylates < 0.3 mg/dL (2.8-20.0) L 11/22/19 23:27 Urine Opiates Screen Presumptive negative 11/22/19 23:17 Urine Methadone Screen Presumptive negative 11/22/19 23:17 Acetaminophen < 5.0 ug/mL (10.0-30.0) L 11/22/19 23:27 Ur Barbiturates Screen Presumptive negative 11/22/19 23:17 Ur Phencyclidine Scrn Presumptive negative 11/22/19 23:17 Ur Amphetamines Screen Presumptive negative 11/22/19 23:17 U Benzodiazepines Scrn Presumptive negative 11/22/19 23:17 Urine Cocaine Screen Presumptive negative 11/22/19 23:17 U Marijuana (THC) Screen Presumptive negative 11/22/19 23:17 Drugs of Abuse Note Disclamer 11/22/19 23:17 Plasma/Serum Alcohol 0.08 % (0-0.07) H 11/22/19 23:27 Coronavirus (PCR) Negative (Negative) 02/05/20 07:50 Hepatitis A IgM Ab Non-reactive (NonReactive) 11/23/19 01:19 Hep Bs Antigen Non-reactive (Negative) 11/23/19 01:19 Hep B Core IgM Ab Non-reactive (NonReactive) 11/23/19 01:19 Hepatitis C Antibody Non-reactive (NonReactive) 11/23/19 01:19 Blood Type O POSITIVE 12/21/19 14:54 Antibody Screen Negative 12/21/19 14:54 Crossmatch See Detail 12/21/19 14:54 - Diagnostic Impressions Diagnostic Impressions: Echocardiogram 11/23/19 03:58 Transthoracic Echocardiogram Indication: Cardiac arrest BP: 131/89 HR: 115 Conclusions *The study quality is technically difficult. *Global left ventricular wall motion and contractility are within normal limits. *The estimated ejection fraction is 55-60%. *Abnormal left ventricular diastolic filling is observed, consistent with impaired relaxation. *There is no pericardial effusion. Findings Procedure Info: The study quality is technically difficult. The study was technically limited due to the patient's inability to lay in the left lateral decubitus position. Left Ventricle: The left ventricular chamber size is normal. There is no left ventricular hypertrophy. Global left ventricular wall motion and contractility are within normal limits. Global left ventricular systolic function is normal. The estimated ejection fraction is 55-60%. Abnormal left ventricular diastolic filling is observed, consistent with impaired relaxation. Left Atrium: The left atrial chamber size is normal. Aortic Valve: The aortic valve leaflets are mildly thickened. Mitral Valve: The mitral valve leaflets are mildly thickened. There is no evidence of mitral regurgitation. Tricuspid Valve: The tricuspid valve leaflets are normal. There is trace tricuspid regurgitation. The right ventricular systolic pressure is calculated at 33 mmHg. Pulmonic Valve: The pulmonic valve appears normal. Pericardium: The pericardium appears normal. There is no pericardial effusion. Aorta: The aorta appears normal. Venous: The inferior vena cava appears normal in size. Measurements Chambers 2D Name Value Normal Range IVSd (2D) 0.94 cm (0.6 - 1.1) LVPWd (2D) 0.81 cm (0.6 - 1.1) LVIDd (2D) 3.6 cm (3.7 - 5.6) LVIDs (2D) 2.27 cm (2 - 3.8) LV FS (2D) 36.93 % - EF Teichholz (2D) 67.76 % - Ao root diameter (2D) 3.03 cm (2 - 3.7) Volumes/Mass Name Value Normal Range LA ESV SP 4CH (A/L) 16.89 ml - LA ESV SP 4CH (MOD) 15.52 ml - Diastolic/Systolic Function Name Value Normal Range MV E-wave Vmax 0.55 m/sec - MV deceleration time 200.89 msec - MV A-wave Vmax 0.68 m/sec - MV E:A ratio 0.82 ratio - Aortic Valve Name Value Normal Range AV Vmax 1.1 m/sec - AV VTI 15.9 cm - AV peak gradient 4.86 mmHg - AV mean gradient 2.59 mmHg - LVOT diameter 2 cm - LVOT Vmax 1.03 m/sec - LVOT VTI 15.87 cm - LVOT peak gradient 4.24 mmHg - LVOT mean gradient 2.41 mmHg - SV LVOT 49.77 ml - JOSÉ MIGUEL (continuity Vmax) 2.93 cm2 - JOSÉ MIGUEL (continuity VTI) 3.13 cm2 - Tricuspid Valve Name Value Normal Range TR Vmax 2.74 m/sec - TR peak gradient 303 mmHg - RAP 3 mmHg - RVSP 33 mmHg - IVC diameter 1.77 cm (1.2 - 2.3) Pulmonic Valve/Qp:Qs Name Value Normal Range PV Vmax 0.77 m/sec - PV peak gradient 2.4 mmHg - PV acceleration time 114.18 msec - Echocardiogram Limited Views 12/17/19 14:53 Transthoracic Echocardiogram Indication: R/O Vegetations BP: 144/83 HR: 133 Conclusions *Global left ventricular systolic function is mildly decreased. *The estimated ejection fraction is 45-50%. *A trivial pericardial effusion is visualized. Findings Left Ventricle: The left ventricular chamber size is normal. Global left ventricular systolic function is mildly decreased. The estimated ejection fraction is 45-50%. Left Atrium: The left atrial chamber size is normal. Right Ventricle: The right ventricular cavity size is normal. Right Atrium: The right atrial cavity size is normal. Aortic Valve: The aortic valve is not well visualized. There is no evidence of aortic regurgitation. Mitral Valve: The mitral valve leaflets are mildly thickened. There is trace of mitral regurgitation. Tricuspid Valve: The tricuspid valve leaflets are mildly thickened. There is trace tricuspid regurgitation. The right ventricular systolic pressure is calculated at 29 mmHg. Pulmonic Valve: The pulmonic valve is not well visualized. There is no evidence of pulmonic regurgitation. Pericardium: A trivial pericardial effusion is visualized. Aorta: There is no dilatation of the ascending aorta. There is no dilatation of the aortic root. Venous: The inferior vena cava appears normal in size. There is a greater than 50% respiratory change in the inferior vena cava dimension. Measurements Chambers 2D Name Value Normal Range IVSd (2D) 0.83 cm (0.6 - 1.1) LVPWd (2D) 0.98 cm (0.6 - 1.1) LVIDd (2D) 3.71 cm (3.7 - 5.6) LVIDs (2D) 2.93 cm (2 - 3.8) LV FS (2D) 21.12 % - EF Teichholz (2D) 43.71 % - Ao root diameter (2D) 3.02 cm (2 - 3.7) Volumes/Mass Name Value Normal Range LA ESV SP 4CH (A/L) 36.8 ml - LA ESV SP 2CH (A/L) 45.89 ml - LA ESV BP (A/L) 42.35 ml - LA ESV BP (A/L) index 26.63 ml/m2 - LA ESV SP 4CH (MOD) 34.42 ml - LA ESV SP 2CH (MOD) 44.21 ml - LA ESV BP (MOD) 39.82 ml - LA ESV BP (MOD) index 25.05 ml/m2 - Aortic Valve Name Value Normal Range LVOT diameter 1.63 cm - Tricuspid Valve Name Value Normal Range TR Vmax 2.56 m/sec - TR peak gradient 26 mmHg - RAP 3 mmHg - RVSP 29 mmHg - IVC diameter 1.83 cm (1.2 - 2.3) [place]/IV: Voiding Method Incontinent IV Catheter Type [Forearm] Peripheral IV IV Catheter Type [Left Forearm INT / Saline Lock ] IV Catheter Type [Right INT / Saline Lock Antecubital] IV Catheter Type [Right Hand] INT / Saline Lock IV Catheter Type [Right Wrist] Peripheral IV IV Catheter Type [Left Wrist] Peripheral IV IV Catheter Type [Left Peripheral IV Antecubital] IV Catheter Type [Right INT / Saline Lock Forearm] IV Catheter Type [Left Hand] INT / Saline Lock Active Medications - Current Medications Current Medications: Generic Name Dose Route Start Last Admin Trade Name Freq PRN Reason Stop Dose Admin Albuterol 2.5 mg 03/25/20 19:25 04/07/20 08:59 Proventil IH 2.5 mg Q4HRT PRN Administration Shortness Of Breath Lipase/Protease/Amylase 1 each 11/23/19 11:[address] 10,500 Unit FEEDTUBE PRN PRN Use w/ sod bicarb for FT Bisacodyl 10 mg 02/06/20 13:57 Dulcolax SD QDAY PRN Constipation unrelieved by MOM Enoxaparin Sodium 40 mg 03/07/20 22:00 05/02/20 21:15 Enoxaparin SUB-Q 40 mg QDAY@2200 LUCHO Administration Folic Acid 1 mg 04/27/20 10:00 05/02/20 10:07 Folvite PO 1 mg QDAY LUCHO Administration Glycopyrrolate 2 mg 04/29/20 14:00 05/02/20 21:15 Robinul PO 2 mg TID LUCHO Administration Guaifenesin 10 ml 04/28/20 05:11 04/28/20 21:41 Guaifenesin Dm Syrup PO 10 ml Q6H PRN Administration Cough Haloperidol Lactate 5 mg 03/05/20 09:22 04/30/20 22:21 Haldol IM 5 mg Q6H PRN Administration Agitation Hydroxyzine Pamoate 25 mg 12/06/19 10:00 05/02/20 21:15 Vistaril PO 25 mg BID LUCHO Administration Lansoprazole 30 mg 11/27/19 10:00 05/02/20 10:04 Prevacid Solutab FEEDTUBE 30 mg QDAY LUCHO Administration Levetiracetam 500 mg 11/29/19 10:00 05/02/20 21:15 Keppra PO 500 mg BID LUCHO Administration Mirtazapine 30 mg 12/06/19 10:00 05/02/20 10:04 Remeron PO 30 mg DAILY LUCHO Administration Nicotine 21 mg 02/16/20 13:00 05/02/20 10:04 Habitrol TD 21 mg QDAY LUCHO Administration Ondansetron HCl 4 mg 12/10/19 07:53 05/02/20 00:47 Zofran IV 4 mg Q4H PRN Administration Nausea And Vomiting Polyethylene Glycol 17 gm 02/06/20 13:57 Miralax 3350 PO QDAY PRN Constipation Quetiapine Fumarate 100 mg 03/06/20 10:00 05/02/20 21:16 Seroquel FEEDTUBE 100 mg BID LUCHO Administration Scopolamine 1 each 02/08/20 15:00 05/02/20 10:04 Transderm-Scop TD 1 each Q3D LUCHO Administration Sertraline HCl 25 mg 01/01/20 10:00 05/02/20 10:04 Zoloft PO 25 mg QDAY LUCHO Administration Simple Syrup 15 ml 11/23/19 11:50 Simple Syrup FEEDTUBE PRN PRN Hypoglycemia BG<70 Simple Syrup 30 ml 11/23/19 11:50 Simple Syrup FEEDTUBE PRN PRN Hypoglycemia Sodium Bicarbonate 325 mg 11/23/19 11:50 04/30/20 12:27 Sodium Bicarbonate FEEDTUBE 325 mg PRN PRN Administration For Clogged Feeding Tube Nutrition/Malnutrition Assess - Dietary Evaluation Nutrition/Malnutrition Findings: Nutrition Notes Start: 11/23/19 11:29 Freq: Status: Active Protocol: Document 04/23/20 14:33 EVELIA (Rec: 04/23/20 14:35 EVELIA [email or web address] [email or web address]) Nutrition Notes Initial or Follow up Reassessment Other Pertinent Diagnosis s/p Cardiac arrest, acute metabolic encephalopathy Current Diet Mech soft with chopped meats Labs/Tests Reviewed Pertinent Medications Reviewed Height 5 ft 6 in Weight 43.5 kg [place] Body Weight (kg) 59.09 BMI 15.5 Subjective/Other Information Pt has consumed 79% of meals since last assessment. Percent of energy/protein needs met: 100% energy 100% pro Burn Absent Trauma Absent Current % PO Good (75-100%) #2 Nutrition Diagnosis Malnutrition Diagnosis Progress(for reassessment Continues documentation) Is patient on ventilator? No Is Patient Ambulatory and/or Out of Bed No REE-([facility]-confined to bed) 1260.864 Kcal/Kg value to use for calculation 35 Approximate Energy Requirements Using 1523 kcal/Kg Calculation Used for Recommendations Kcal/kg Additional Notes Pro needs 1.2-1.5g/k-65g/ day Fluid needs 1ml/kcal Nutrition Intervention Goal #1 PO intake of meals plus ONS to meet 100% energy and pro needs Goal #2 Wt maintenance and/or gain Revisit per MD consult or patient Sign Off request:
[2020-05-03] MEDS: hydrOXYzine PAMOATE 25 MG CAP PO SCH ×2 (10:52→21:02)
[2020-05-03] MEDS: levETIRAcetam 500 MG/5 ML ORAL LIQD PO SCH ×2 (10:52→21:02)
[2020-05-03] MEDS: QUEtiapine 100 MG TAB FEEDTUBE SCH ×2 (10:52→21:02)
[2020-05-03] MEDS: SERTRALINE 50 MG TAB PO SCH (10:52)
[2020-05-03] MEDS: LANSOPRAZOLE 30 MG SOLUTAB FEEDTUBE SCH (10:52)
[2020-05-03] MEDS: GLYCOPYRROLATE 1 MG TAB PO SCH ×3 (10:52→21:02)
[2020-05-03] MEDS: MIRTAZAPINE 30 MG TAB PO SCH (10:52)
[2020-05-03] MEDS: NICOTINE 21 MG/24 HR PATCH TD SCH (10:53)
[2020-05-03] MEDS: FOLIC ACID 1 MG TAB PO SCH (10:53)
[2020-05-03] MEDS: ENOXAPARIN 40 MG/0.4 ML INJ SUB-Q SCH (21:02)
[2020-05-04] MEDS: GLYCOPYRROLATE 1 MG TAB PO SCH ×3 (08:00→20:33)
[2020-05-04] MEDS: levETIRAcetam 500 MG/5 ML ORAL LIQD PO SCH ×2 (10:55→22:30)
[2020-05-04] MEDS: SERTRALINE 50 MG TAB PO SCH (10:56)
[2020-05-04] MEDS: QUEtiapine 100 MG TAB FEEDTUBE SCH ×2 (10:56→22:29)
[2020-05-04] MEDS: hydrOXYzine PAMOATE 25 MG CAP PO SCH ×2 (10:57→22:30)
[2020-05-04] MEDS: NICOTINE 21 MG/24 HR PATCH TD SCH (10:57)
[2020-05-04] MEDS: LANSOPRAZOLE 30 MG SOLUTAB FEEDTUBE SCH (10:58)
[2020-05-04] MEDS: FOLIC ACID 1 MG TAB PO SCH (10:58)
[2020-05-04] MEDS: MIRTAZAPINE 30 MG TAB PO SCH (10:58)
[2020-05-04] MEDS: ENOXAPARIN 40 MG/0.4 ML INJ SUB-Q SCH (22:30)
--- NOTE | 2020-05-05 09:30 | Progress Note ---
Assessment and Plan Assessment and plan: 54-year-old female with a past medical history of Hypertension, Depression, Tobacco use Disorder, Alcohol use Disorder as confirmed by Daughter and pt's mother presents to the hospital status post cardiac arrest at home. EMS found pt in [facility]. They were unable to intubate patient with a ET tube because she was clenching down therefore Joe airway placed. Per the ED physician who evaluated pt, Patient presented with a pulse, intermittent respirations, and bagging support via Joe airway with O2 sat of 100%. Accu-Chek of 71 obtained by EMS. She was intubated in the ER and called for admission. Following admission patient was diagnosed with anoxic brain injury, sepsis with MRSA bacteremia and MSSA pneumonia, alcoholic liver disease. Family member initially wished for full code then changed to DNR, patient treated with IV antibiotics for sepsis, status post trach and PEG on 12/13/19. Weaned off from the vent and put on T- piece. Patient is uninsured, waiting for placement, guarded prognosis. 03/07: Returning to service no acute changes are noted. Continue current management while awaiting placement. Intermittent labs. Base of neck also around tracheostomy tube preventing downgrading. Continue appropriate wound care. 03/08: Plan of care unchanged continues on aerosol trach collar 28% of oxygen. Continue wound care management placement still pending status decision. 03/09: Continue current treatment plan. Continue aspiration precaution 03/10: Continue current management, Restraints as patient still pulling, awaiting placement 03/11: Continue supportive care, intermittent suctioning and pulmonary toilet. awaiting placement. 03/12: Continue supportive care, Give a bolus of fluids due to Hypercalcemia, Monitor Hyperkalemia with labs in am, No arrhythmia. Patient vomiting, concern for aspiration, Chest xray ordered and no active disease noted. Keep HOB >45% 03/13: No evidence of aspiration on xray. Continue supportive care. 03/14: Continue supportive care. Capping trials to start. Discussed with patients nursing and case management to continue daily PT by the Rehab team. 03/15: Discussed again with staff to start capping trial. 03/16: Do not see any indication the capping trial has started will discuss with respiratory therapist. Continue restraints. Still awaiting family decision patient has had some remarkable improvement considering the fact that she was able to stay around night without restraints. We will continue daily trial of this method. Discussed plan with nursing staff 03/17: Continue current care. Currently continue restraints. Continue current management. Continue physical therapy daily. 03/18: Capping trial successful and will possibly get decannulated today. Continue placement. 03/19: Now decannulated and doing well. Begin discharge planning. 03/20: Stable, no new complaints. 03/21: No new complaints. Continue supportive 03/22: No new complaints, still with some confusion, and agitation requiring restraints. Will require daily PT/OT and continue to work with Case management for placement 03/23: continue current management, daily PT/OT. stoma care. No new seizure, slow but gradual improvement noted daily 03/24: Mr. Amaya is a 55-year-old female who presented to the hospital was admitted post cardiac arrest at home she has remarkably done well been extubated and decannulated with stoma healing. She still does experience some intermittent delirious process and as a result is on restraints. I have discussed with nursing staff to see if they can provide a sitter for her and continue daily PT as this will aid in reintroducing her to the community. Case management is working on placement for her. Will check labs in a.m. 04/29: Returning to services, please see other notes. Patient stable and continues to improve. STILL WITH ALTERED MENTAL STATUS, SHE STILL REQUIRES RESTRAINTS, CASE MANAGEMENT WORKING ON PLACEMENT 04/30: Clinically stable continue to monitor still with altered sensorium still awaiting placement. Will check intermittent labs. 05/02: Patient was seen by neurologist no new information noted no further recommendation recommended. Patient continues to be alert but still confused. Remains on restraints for the same reason. Continue daily restrain break while monitoring for fall. Sclera status remains stable. 05/03: At this time is safe to say that she does have dementia from anoxic brain injury although has periods of lucidness. We will continue current management. Discussed with case management about possible guardianship. As family is not willing to take the patient home. 05/04: Monitor tachycardia worse continue supportive care. 05/05: No clinical change, continues to require Restraints due to resulting Dementia and impulsive movements. Pending placement. / Anoxic brain injury: suspected CT head: No acute abnormality. EEG ordered showed Generalized slowing. No seizures or epileptiform activity. -Patient now opening her eyes, can speak and able to follow command -As needed haldol for agitation /Acute Respiratory failure -due to MSSA PNA -s/p intubation, s/p trach and PEG on 12/12 with mechanical ventilation, now on T-piece - CTA was done and negative for PE, - Echo quality is poor, showed diastolic dysfunction - continue weaning as tolerated -Continue appropriate and adequate tracheostomy care /Tracheostomy site ulceration -Continue appropriate wound management try to keep area dry. /Anemia, microcytic - Status post 3 units PRBC transfusion, H&H low stable /Acute metabolic encephalopathy/toxic encephalopathy due to the above - cont supportive care /Hyperammonemia - likely from liver disease related to EtOH abuse - Patient had elevated ammonia level and treated with lactulose /Metabolic Acidosis -Alcohol ketoacidosis vs hypoprofusion -Continue to monitor /ELevated LFTs, stable now - due to ischemic hepatitis. /Leucocytosis with sepsis - Source MRSA bacteremia and MSSA pneumonia. UA showed pyuria. RUQ US showed no ascites. - Repeat TTE negative for vegetation. Completed 7 days of Ceftriaxone on 2019. -Treated with Abx vancomycin 1 gm IV q 12 hour total 2 week till 12/30/2019 /Severe protein calorie malnutrition Dietitian consult to assist in management. /MSSA pneumonia: Status post vancomycin till 12/30/2019 /Alcohol use Disorder - given ongoing Alcohol use almost daily, s/p IV Thiamine - monitor /Severe hypokalemia -Repleted /Seizure disorder: treat with Keppra /H. Influenzae, tracheobronchitis, treated with abx /Moderate to severe fecal impaction - will add stool softner DNR CODE STATUS Disposition: prognosis guarded. Family okay for DNR, PT recommended subacute rehab, discharge pending on placement. Negative for COVID 19 History Interval history: Patient seen and examined, resting comfortable. No new complaints. Some periods of mental status improvement Hospitalist Physical - Physical exam Narrative exam: General appearance: Present: Appears older than stated age, lying down - EENT Eyes: no scleral icterus, no conjunctival injection, pupil not reactive ENT: clear oral mucosa, dentition normal, no oropharyngeal erythema Ears: bilateral: normal - Neck Neck: stoma clena and dry - Respiratory Respiratory effort: other dressing over the stoma Respiratory: bilateral: rales - Cardiovascular Rhythm: Mildly tachycardic Heart Sounds: Present: S1 & S2. Absent: gallop, rub Extremities: pulses intact, No edema, normal color - Gastrointestinal General gastrointestinal: Present: soft, non-tender, non-distended, normal bowel sounds - Integumentary Integumentary: clear, warm, dry - Musculoskeletal Musculoskeletal: No joint swelling or tenderness - Neurologic Neurologic: other (2+ reflexes throughout). respond to commend answers questions appropriately today - Psychiatric Psychiatric: co-operative - Constitutional Vitals: Temp Pulse Resp BP Pulse Ox 98.2 F 101 H 18 119/84 100 05/05/20 03:23 05/05/20 00:35 05/05/20 08:40 05/05/20 00:35 05/05/20 00:35 General appearance: Present: no acute distress HEART Score - HEART Score Troponin: Troponin T < 0.010 ng/mL (0.00-0.029) 11/22/19 23:27 Results - Labs CBC & Chem 7: 05/01/20 07:57 05/01/20 07:57 Labs: Laboratory Last Values WBC 6.8 K/mm3 (4.5-11.0) 05/01/20 07:57 RBC 3.90 M/mm3 (3.65-5.03) 05/01/20 07:57 Hgb 11.4 gm/dl (10.1-14.3) 05/01/20 07:57 Hct 34.9 % (30.3-42.9) 05/01/20 07:57 MCV 90 fl (79-97) 05/01/20 07:57 MCH 29 pg (28-32) 05/01/20 07:57 MCHC 33 % (30-34) 05/01/20 07:57 RDW 14.5 % (13.2-15.2) 05/01/20 07:57 Plt Count 498 K/mm3 (140-440) H 05/01/20 07:57 Lymph % (Auto) 25.9 % (13.4-35.0) 04/16/20 09:02 [place] % (Auto) 7.4 % (0.0-7.3) H 04/16/20 09:02 Eos % (Auto) 0.9 % (0.0-4.3) 04/16/20 09:02 Baso % (Auto) 0.8 % (0.0-1.8) 04/16/20 09:02 Lymph # 1.7 K/mm3 (1.2-5.4) 04/16/20 09:02 [place] # 0.5 K/mm3 (0.0-0.8) 04/16/20 09:02 Eos # 0.1 K/mm3 (0.0-0.4) 04/16/20 09:02 Baso # 0.1 K/mm3 (0.0-0.1) 04/16/20 09:02 Add Manual Diff Complete 12/25/19 03:47 Total Counted 200 12/25/19 03:47 Seg Neutrophils % 65.0 % (40.0-70.0) 04/16/20 09:02 Seg Neuts % (Manual) 97.5 % (40.0-70.0) H 12/25/19 03:47 Band Neutrophils % 0 % 12/25/19 03:47 Lymphocytes % (Manual) 1.0 % (13.4-35.0) L 12/25/19 03:47 Reactive Lymphs % (Man) 0 % 12/25/19 03:47 Monocytes % (Manual) 1.5 % (0.0-7.3) 12/25/19 03:47 Eosinophils % (Manual) 0 % (0.0-4.3) 12/25/19 03:47 Basophils % (Manual) 0 % (0.0-1.8) 12/25/19 03:47 Metamyelocytes % 0 % 12/25/19 03:47 Myelocytes % 0 % 12/25/19 03:47 Promyelocytes % 0 % 12/25/19 03:47 Blast Cells % 0 % 12/25/19 03:47 Nucleated RBC % Not Reportable 12/25/19 03:47 Seg Neutrophils # 4.4 K/mm3 (1.8-7.7) 04/16/20 09:02 Seg Neutrophils # Man 35.3 K/mm3 (1.8-7.7) H 12/25/19 03:47 Band Neutrophils # 0.0 K/mm3 12/25/19 03:47 Lymphocytes # (Manual) 0.4 K/mm3 (1.2-5.4) L 12/25/19 03:47 Abs React Lymphs (Man) 0.0 K/mm3 12/25/19 03:47 Monocytes # (Manual) 0.5 K/mm3 (0.0-0.8) 12/25/19 03:47 Eosinophils # (Manual) 0.0 K/mm3 (0.0-0.4) 12/25/19 03:47 Basophils # (Manual) 0.0 K/mm3 (0.0-0.1) 12/25/19 03:47 Metamyelocytes # 0.0 K/mm3 12/25/19 03:47 Myelocytes # 0.0 K/mm3 12/25/19 03:47 Promyelocytes # 0.0 K/mm3 12/25/19 03:47 Blast Cells # 0.0 K/mm3 12/25/19 03:47 Pathologist Review 12/13/19 07:48 WBC Morphology Not Reportable 12/25/19 03:47 Hypersegmented Neuts Not Reportable 12/25/19 03:47 Hyposegmented Neuts Not Reportable 12/25/19 03:47 Hypogranular Neuts Not Reportable 12/25/19 03:47 Smudge Cells Not Reportable 12/25/19 03:47 Toxic Granulation Not Reportable 12/25/19 03:47 Toxic Vacuolation Not Reportable 12/25/19 03:47 Dohle Bodies Not Reportable 12/25/19 03:47 Pelger-Huet Anomaly Not Reportable 12/25/19 03:47 Dominique Rods Not Reportable 12/25/19 03:47 Platelet Estimate Consistent w auto 12/25/19 03:47 Clumped Platelets Not Reportable 12/25/19 03:47 Plt Clumps, EDTA Not Reportable 12/25/19 03:47 Large Platelets Not Reportable 12/25/19 03:47 Giant Platelets Not Reportable 12/25/19 03:47 Platelet Satelliting Not Reportable 12/25/19 03:47 Plt Morphology Comment Not Reportable 12/25/19 03:47 RBC Morphology Not Reportable 12/25/19 03:47 Dimorphic RBCs Not Reportable 12/25/19 03:47 Polychromasia Not Reportable 12/25/19 03:47 Hypochromasia Not Reportable 12/25/19 03:47 Poikilocytosis Not Reportable 12/25/19 03:47 Anisocytosis 1+ 12/25/19 03:47 Microcytosis Not Reportable 12/25/19 03:47 Macrocytosis Not Reportable 12/25/19 03:47 Spherocytes Not Reportable 12/25/19 03:47 Pappenheimer Bodies Not Reportable 12/25/19 03:47 Sickle Cells Not Reportable 12/25/19 03:47 Target Cells Not Reportable 12/25/19 03:47 Tear Drop Cells Not Reportable 12/25/19 03:47 Ovalocytes Not Reportable 12/25/19 03:47 Helmet Cells Not Reportable 12/25/19 03:47 [place] Bodies Not Reportable 12/25/19 03:47 Rowena Rings Not Reportable 12/25/19 03:47 [place] Cells Not Reportable 12/25/19 03:47 Bite Cells Not Reportable 12/25/19 03:47 Crenated Cell Not Reportable 12/25/19 03:47 Elliptocytes Not Reportable 12/25/19 03:47 Acanthocytes (Spur) Not Reportable 12/25/19 03:47 Rouleaux Not Reportable 12/25/19 03:47 Hemoglobin C Crystals Not Reportable 12/25/19 03:47 Schistocytes Not Reportable 12/25/19 03:47 Malaria parasites Not Reportable 12/25/19 03:47 Gregg Bodies Not Reportable 12/25/19 03:47 Hem Pathologist Commnt No 12/25/19 03:47 PT 17.0 Sec. (12.2-14.9) H 11/23/19 03:47 INR 1.36 (0.87-1.13) H 11/23/19 03:47 APTT 128.2 Sec. (24.2-36.6) H* 11/23/19 03:47 Heparin Anti-Xa Level 0.31 U.I./ml (0.3-0.7) 11/23/19 09:03 ABG pH 7.433 pH Units (7.350-7.450) 03/08/20 13:25 ABG pCO2 40.2 mm Hg 03/08/20 13:25 ABG pO2 71.1 mm Hg (80.0-90.0) L 03/08/20 13:25 ABG HCO3 26.2 mmol/L (20.0-26.0) H 03/08/20 13:25 ABG O2 Saturation 97.0 % (95.0-99.0) 03/08/20 13:25 ABG O2 Content 11.0 (0.0-44) 03/08/20 13:25 ABG Base Excess 1.8 mmol/L (-2.0-3.0) 03/08/20 13:25 ABG Hemoglobin 8.2 gm/dl (12.0-16.0) L 03/08/20 13:25 ABG Carboxyhemoglobin 1.7 % (0.0-5.0) 03/08/20 13:25 ABG Methemoglobin 0.5 % (0.0-1.5) 03/08/20 13:25 Oxyhemoglobin 94.8 % (95.0-99.0) L 03/08/20 13:25 FiO2 21 % 03/08/20 13:25 Sodium 140 mmol/L (137-145) 05/01/20 07:57 Potassium 4.6 mmol/L (3.6-5.0) 05/01/20 07:57 Chloride 101.7 mmol/L (98-107) 05/01/20 07:57 Carbon Dioxide 27 mmol/L (22-30) 05/01/20 07:57 Anion Gap 16 mmol/L 05/01/20 07:57 BUN 21 mg/dL (7-17) H 05/01/20 07:57 Creatinine 0.7 mg/dL (0.6-1.2) 05/01/20 07:57 Estimated GFR > 60 ml/min 05/01/20 07:57 BUN/Creatinine Ratio 30 % 05/01/20 07:57 Glucose 96 mg/dL (65-100) 05/01/20 07:57 POC Glucose 172 (70-105) H 04/24/20 18:35 Lactic Acid 1.80 mmol/L (0.7-2.0) 11/25/19 05:05 Calcium 10.6 mg/dL (8.4-10.2) H 05/01/20 07:57 Ionized Calcium 4.5 mg/dL (4.8-5.6) L 11/23/19 06:32 Phosphorus 4.20 mg/dL (2.5-4.5) D 11/28/19 08:59 Magnesium 1.90 mg/dL (1.7-2.3) 02/28/20 03:40 Total Bilirubin 0.40 mg/dL (0.1-1.2) 12/13/19 07:48 AST 27 units/L (5-40) 12/13/19 07:48 ALT 26 units/L (7-56) 12/13/19 07:48 Alkaline Phosphatase 316 units/L (35-129) H 12/13/19 07:48 Ammonia 42.0 umol/L (25-60) 11/29/19 13:41 Total Creatine Kinase 139 units/L (30-135) H 11/22/19 23:27 CK-MB (CK-2) 8.3 ng/mL (0.0-4.0) H 11/22/19 23:27 CK-MB (CK-2) Rel Index 5.9 (0-4) H 11/22/19 23:27 Troponin T < 0.010 ng/mL (0.00-0.029) 11/22/19 23:27 Total Protein 6.8 g/dL (6.3-8.2) 12/13/19 07:48 Albumin 2.4 g/dL (3.9-5) L 12/13/19 07:48 Albumin/Globulin Ratio 0.5 % 12/13/19 07:48 Lipase 18 units/L (13-60) 11/23/19 00:34 Procalcitonin 1.09 ng/mL (<0.15) 11/23/19 04:53 TSH 1.140 mlU/mL (0.270-4.200) 04/30/20 15:06 Free T4 1.08 ng/dL (0.76-1.46) 02/12/20 07:36 Urine Color Yellow (Yellow) 12/16/19 Unknown Urine Turbidity Slightly-cloudy (Clear) 12/16/19 Unknown Urine pH 5.0 (5.0-7.0) 12/16/19 Unknown Ur Specific [place] 1.018 (1.003-1.030) 12/16/19 Unknown Urine Protein 30 mg/dl mg/dL (Negative) 12/16/19 Unknown Urine Glucose (UA) Neg mg/dL (Negative) 12/16/19 Unknown Urine Ketones Neg mg/dL (Negative) 12/16/19 Unknown Urine Blood Sm (Negative) 12/16/19 Unknown Urine Nitrite Neg (Negative) 12/16/19 Unknown Urine Bilirubin Neg (Negative) 12/16/19 Unknown Urine Urobilinogen < 2.0 mg/dL (<2.0) 12/16/19 Unknown Ur Leukocyte Esterase Neg (Negative) 12/16/19 Unknown Urine WBC (Auto) 6.0 /HPF (0.0-6.0) 12/16/19 Unknown Urine RBC (Auto) 9.0 /HPF (0.0-6.0) 12/16/19 Unknown U Epithel Cells (Auto) < 1.0 /HPF (0-13.0) 12/16/19 Unknown Urine Bacteria (Auto) 2+ /HPF (Negative) 11/22/19 23:17 Hyaline Casts 3 /LPF 12/16/19 Unknown Granular Casts 3 /LPF 12/16/19 Unknown Urine Mucus Few /HPF 12/16/19 Unknown Vancomycin Trough 33.8 ug/mL (5.0-20.0) H 12/21/19 08:56 Random Vancomycin 16.2 ug/mL (0-40.0) 12/24/19 04:31 Salicylates < 0.3 mg/dL (2.8-20.0) L 11/22/19 23:27 Urine Opiates Screen Presumptive negative 11/22/19 23:17 Urine Methadone Screen Presumptive negative 11/22/19 23:17 Acetaminophen < 5.0 ug/mL (10.0-30.0) L 11/22/19 23:27 Ur Barbiturates Screen Presumptive negative 11/22/19 23:17 Ur Phencyclidine Scrn Presumptive negative 11/22/19 23:17 Ur Amphetamines Screen Presumptive negative 11/22/19 23:17 U Benzodiazepines Scrn Presumptive negative 11/22/19 23:17 Urine Cocaine Screen Presumptive negative 11/22/19 23:17 U Marijuana (THC) Screen Presumptive negative 11/22/19 23:17 Drugs of Abuse Note Disclamer 11/22/19 23:17 Plasma/Serum Alcohol 0.08 % (0-0.07) H 11/22/19 23:27 Coronavirus (PCR) Negative (Negative) 02/05/20 07:50 Hepatitis A IgM Ab Non-reactive (NonReactive) 11/23/19 01:19 Hep Bs Antigen Non-reactive (Negative) 11/23/19 01:19 Hep B Core IgM Ab Non-reactive (NonReactive) 11/23/19 01:19 Hepatitis C Antibody Non-reactive (NonReactive) 11/23/19 01:19 Blood Type O POSITIVE 12/21/19 14:54 Antibody Screen Negative 12/21/19 14:54 Crossmatch See Detail 12/21/19 14:54 - Diagnostic Impressions Diagnostic Impressions: Echocardiogram 11/23/19 03:58 Transthoracic Echocardiogram Indication: Cardiac arrest BP: 131/89 HR: 115 Conclusions *The study quality is technically difficult. *Global left ventricular wall motion and contractility are within normal limits. *The estimated ejection fraction is 55-60%. *Abnormal left ventricular diastolic filling is observed, consistent with impaired relaxation. *There is no pericardial effusion. Findings Procedure Info: The study quality is technically difficult. The study was technically limited due to the patient's inability to lay in the left lateral decubitus position. Left Ventricle: The left ventricular chamber size is normal. There is no left ventricular hypertrophy. Global left ventricular wall motion and contractility are within normal limits. Global left ventricular systolic function is normal. The estimated ejection fraction is 55-60%. Abnormal left ventricular diastolic filling is observed, consistent with impaired relaxation. Left Atrium: The left atrial chamber size is normal. Aortic Valve: The aortic valve leaflets are mildly thickened. Mitral Valve: The mitral valve leaflets are mildly thickened. There is no evidence of mitral regurgitation. Tricuspid Valve: The tricuspid valve leaflets are normal. There is trace tricuspid regurgitation. The right ventricular systolic pressure is calculated at 33 mmHg. Pulmonic Valve: The pulmonic valve appears normal. Pericardium: The pericardium appears normal. There is no pericardial effusion. Aorta: The aorta appears normal. Venous: The inferior vena cava appears normal in size. Measurements Chambers 2D Name Value Normal Range IVSd (2D) 0.94 cm (0.6 - 1.1) LVPWd (2D) 0.81 cm (0.6 - 1.1) LVIDd (2D) 3.6 cm (3.7 - 5.6) LVIDs (2D) 2.27 cm (2 - 3.8) LV FS (2D) 36.93 % - EF Teichholz (2D) 67.76 % - Ao root diameter (2D) 3.03 cm (2 - 3.7) Volumes/Mass Name Value Normal Range LA ESV SP 4CH (A/L) 16.89 ml - LA ESV SP 4CH (MOD) 15.52 ml - Diastolic/Systolic Function Name Value Normal Range MV E-wave Vmax 0.55 m/sec - MV deceleration time 200.89 msec - MV A-wave Vmax 0.68 m/sec - MV E:A ratio 0.82 ratio - Aortic Valve Name Value Normal Range AV Vmax 1.1 m/sec - AV VTI 15.9 cm - AV peak gradient 4.86 mmHg - AV mean gradient 2.59 mmHg - LVOT diameter 2 cm - LVOT Vmax 1.03 m/sec - LVOT VTI 15.87 cm - LVOT peak gradient 4.24 mmHg - LVOT mean gradient 2.41 mmHg - SV LVOT 49.77 ml - JOSÉ MIGUEL (continuity Vmax) 2.93 cm2 - JOSÉ MIGUEL (continuity VTI) 3.13 cm2 - Tricuspid Valve Name Value Normal Range TR Vmax 2.74 m/sec - TR peak gradient 303 mmHg - RAP 3 mmHg - RVSP 33 mmHg - IVC diameter 1.77 cm (1.2 - 2.3) Pulmonic Valve/Qp:Qs Name Value Normal Range PV Vmax 0.77 m/sec - PV peak gradient 2.4 mmHg - PV acceleration time 114.18 msec - Echocardiogram Limited Views 12/17/19 14:53 Transthoracic Echocardiogram Indication: R/O Vegetations BP: 144/83 HR: 133 Conclusions *Global left ventricular systolic function is mildly decreased. *The estimated ejection fraction is 45-50%. *A trivial pericardial effusion is visualized. Findings Left Ventricle: The left ventricular chamber size is normal. Global left ventricular systolic function is mildly decreased. The estimated ejection fraction is 45-50%. Left Atrium: The left atrial chamber size is normal. Right Ventricle: The right ventricular cavity size is normal. Right Atrium: The right atrial cavity size is normal. Aortic Valve: The aortic valve is not well visualized. There is no evidence of aortic regurgitation. Mitral Valve: The mitral valve leaflets are mildly thickened. There is trace of mitral regurgitation. Tricuspid Valve: The tricuspid valve leaflets are mildly thickened. There is trace tricuspid regurgitation. The right ventricular systolic pressure is calculated at 29 mmHg. Pulmonic Valve: The pulmonic valve is not well visualized. There is no evidence of pulmonic regurgitation. Pericardium: A trivial pericardial effusion is visualized. Aorta: There is no dilatation of the ascending aorta. There is no dilatation of the aortic root. Venous: The inferior vena cava appears normal in size. There is a greater than 50% respiratory change in the inferior vena cava dimension. Measurements Chambers 2D Name Value Normal Range IVSd (2D) 0.83 cm (0.6 - 1.1) LVPWd (2D) 0.98 cm (0.6 - 1.1) LVIDd (2D) 3.71 cm (3.7 - 5.6) LVIDs (2D) 2.93 cm (2 - 3.8) LV FS (2D) 21.12 % - EF Teichholz (2D) 43.71 % - Ao root diameter (2D) 3.02 cm (2 - 3.7) Volumes/Mass Name Value Normal Range LA ESV SP 4CH (A/L) 36.8 ml - LA ESV SP 2CH (A/L) 45.89 ml - LA ESV BP (A/L) 42.35 ml - LA ESV BP (A/L) index 26.63 ml/m2 - LA ESV SP 4CH (MOD) 34.42 ml - LA ESV SP 2CH (MOD) 44.21 ml - LA ESV BP (MOD) 39.82 ml - LA ESV BP (MOD) index 25.05 ml/m2 - Aortic Valve Name Value Normal Range LVOT diameter 1.63 cm - Tricuspid Valve Name Value Normal Range TR Vmax 2.56 m/sec - TR peak gradient 26 mmHg - RAP 3 mmHg - RVSP 29 mmHg - IVC diameter 1.83 cm (1.2 - 2.3) [place] Cruz/IV: Voiding Method Incontinent IV Catheter Type [Forearm] Peripheral IV IV Catheter Type [Left Forearm INT / Saline Lock ] IV Catheter Type [Right INT / Saline Lock Antecubital] IV Catheter Type [Right Hand] INT / Saline Lock IV Catheter Type [Right Wrist] Peripheral IV IV Catheter Type [Left Wrist] Peripheral IV IV Catheter Type [Left Peripheral IV Antecubital] IV Catheter Type [Right INT / Saline Lock Forearm] IV Catheter Type [Left Hand] INT / Saline Lock Active Medications - Current Medications Current Medications: Generic Name Dose Route Start Last Admin Trade Name Fremelanie PRN Reason Stop Dose Admin Albuterol 2.5 mg 03/25/20 19:25 04/07/20 08:59 Proventil IH 2.5 mg Q4HRT PRN Administration Shortness Of Breath Lipase/Protease/Amylase 1 each 11/23/19 11:[address] 10,500 Unit FEEDTUBE PRN PRN Use w/ sod bicarb for FT Bisacodyl 10 mg 02/06/20 13:57 Dulcolax OR QDAY PRN Constipation unrelieved by MOM Enoxaparin Sodium 40 mg 03/07/20 22:00 05/04/20 22:30 Enoxaparin SUB-Q 40 mg QDAY@2200 LUCHO Administration Folic Acid 1 mg 04/27/20 10:00 05/04/20 10:58 Folvite PO 1 mg QDAY LUCHO Administration Glycopyrrolate 2 mg 04/29/20 14:00 05/04/20 20:33 Robinul PO 2 mg TID LUCHO Administration Guaifenesin 10 ml 04/28/20 05:11 04/28/20 21:41 Guaifenesin Dm Syrup PO 10 ml Q6H PRN Administration Cough Hydroxyzine Pamoate 25 mg 12/06/19 10:00 05/04/20 22:30 Vistaril PO 25 mg BID LUCHO Administration Lansoprazole 30 mg 11/27/19 10:00 05/04/20 10:58 Prevacid Solutab FEEDTUBE 30 mg QDAY LUCHO Administration Levetiracetam 500 mg 11/29/19 10:00 05/04/20 22:30 Keppra PO 500 mg BID LUCHO Administration Mirtazapine 30 mg 12/06/19 10:00 05/04/20 10:58 Remeron PO 30 mg DAILY LUCHO Administration Nicotine 21 mg 02/16/20 13:00 05/04/20 10:57 Habitrol TD 21 mg QDAY LUCHO Administration Ondansetron HCl 4 mg 12/10/19 07:53 05/02/20 00:47 Zofran IV 4 mg Q4H PRN Administration Nausea And Vomiting Polyethylene Glycol 17 gm 02/06/20 13:57 Miralax 3350 PO QDAY PRN Constipation Quetiapine Fumarate 100 mg 03/06/20 10:00 05/04/20 22:29 Seroquel FEEDTUBE 100 mg BID LUCHO Administration Scopolamine 1 each 02/08/20 15:00 05/02/20 10:04 Transderm-Scop TD 1 each Q3D LUCHO Administration Sertraline HCl 25 mg 01/01/20 10:00 05/04/20 10:56 Zoloft PO 25 mg QDAY LUCHO Administration Simple Syrup 15 ml 11/23/19 11:50 Simple Syrup FEEDTUBE PRN PRN Hypoglycemia BG<70 Simple Syrup 30 ml 11/23/19 11:50 Simple Syrup FEEDTUBE PRN PRN Hypoglycemia Sodium Bicarbonate 325 mg 11/23/19 11:50 04/30/20 12:27 Sodium Bicarbonate FEEDTUBE 325 mg PRN PRN Administration For Clogged Feeding Tube Nutrition/Malnutrition Assess - Dietary Evaluation Nutrition/Malnutrition Findings: Nutrition Notes Start: 11/23/19 11:29 Freq: Status: Active Protocol: Document 04/23/20 14:33 EVELIA (Rec: 04/23/20 14:35 [facility] [id number]) Nutrition Notes Initial or Follow up Reassessment Other Pertinent Diagnosis s/p Cardiac arrest, acute metabolic encephalopathy Current Diet Mech soft with chopped meats Labs/Tests Reviewed Pertinent Medications Reviewed Height 5 ft 6 in Weight 43.5 kg [place] Body Weight (kg) 59.09 BMI 15.5 Subjective/Other Information Pt has consumed 79% of meals since last assessment. Percent of energy/protein needs met: 100% energy 100% pro Burn Absent Trauma Absent Current % PO Good (75-100%) #2 Nutrition Diagnosis Malnutrition Diagnosis Progress(for reassessment Continues documentation) Is patient on ventilator? No Is Patient Ambulatory and/or Out of Bed No REE-([facility]-confined to bed) 1260.864 Kcal/Kg value to use for calculation 35 Approximate Energy Requirements Using 1523 kcal/Kg Calculation Used for Recommendations Kcal/kg Additional Notes Pro needs 1.2-1.5g/k-65g/ day Fluid needs 1ml/kcal Nutrition Intervention Goal #1 PO intake of meals plus ONS to meet 100% energy and pro needs Goal #2 Wt maintenance and/or gain Revisit per MD consult or patient Sign Off request:
[2020-05-05] MEDS: NICOTINE 21 MG/24 HR PATCH TD SCH (10:27)
[2020-05-05] MEDS: levETIRAcetam 500 MG/5 ML ORAL LIQD PO SCH ×2 (10:27→21:42)
[2020-05-05] MEDS: LANSOPRAZOLE 30 MG SOLUTAB FEEDTUBE SCH (10:27)
[2020-05-05] MEDS: FOLIC ACID 1 MG TAB PO SCH (10:27)
[2020-05-05] MEDS: QUEtiapine 100 MG TAB FEEDTUBE SCH (10:27)
[2020-05-05] MEDS: SERTRALINE 50 MG TAB PO SCH (10:27)
[2020-05-05] MEDS: MIRTAZAPINE 30 MG TAB PO SCH (10:28)
[2020-05-05] MEDS: SCOPOLAMINE TRANSDERMAL PATCH 72 HR TD SCH (10:29)
[2020-05-05] MEDS: GLYCOPYRROLATE 1 MG TAB PO SCH (10:41)
--- NOTE | 2020-05-05 14:05 | Progress Note ---
Assessment and Plan Patient awake. Not using her O2. O2 saturation reported 100%. No acute respiratory distress.Continue physical therapy. - Patient Problems (1) Acute respiratory failure Current Visit: Yes Status: Acute Qualifiers: Respiratory failure complication: hypoxia Qualified Code(s): J96.01 - Acute respiratory failure with hypoxia Plan to address problem: Patient decanulated . Recommend O2 2 litres via nasal canula. Aspiration precautions. Continue albuterol/atrovent aerosol treatments q 6 hours. Continue Physical therapy. (2) Alcohol abuse Current Visit: Yes Status: Acute Plan to address problem: Management as per primary care. (3) Cardiac arrest with successful resuscitation Current Visit: Yes Status: Acute Plan to address problem: Patient successfully resucitated. S/P tracheostomy, Decanulated. Recommend O2 2 litres via nasal canula. (4) Increased ammonia level Current Visit: Yes Status: Acute Plan to address problem: Management as per primary care. Subjective Date of service: 05/05/20 Principal diagnosis: Ac cardiopulmonary arrest; Ac hypoxemic resp failure; Acute encephalopathy Interval history: Patient awake. Not using her O2. O2 saturation reported 100%. No acute re spiratory distress.Continue physical therapy. Objective Vital Signs - 12hr 05/05/20 05/05/20 03:23 08:40 Temperature 98.2 F Respiratory 18 Rate Constitutional: no acute distress, alert Eyes: non-icteric ENT: oropharynx moist Neck: supple, no lymphadenopathy, no JVD Effort: normal Ascultation: Bilateral: diminished breath sounds, other (Prolonged expiratory phase.) Percussion: Bilateral: not dull Cardiovascular: regular rate and rhythm (tachycardia), other (S1,S2) Gastrointestinal: normoactive bowel sounds, soft, non-tender, non-distended Integumentary: normal Extremities: no cyanosis, no edema, pulses normal, no ischemia or petechiae Neurologic: normal mental status, non-focal exam (moves all extremities), pupils equal and round, motor strength normal and Psychiatric: mood appropriate, affect normal CBC and BMP: 05/01/20 07:57 05/01/20 07:57 ABG, PT/INR, D-dimer: ABG ABG pH 7.433 pH Units (7.350-7.450) 03/08/20 13:25 ABG pCO2 40.2 mm Hg 03/08/20 13:25 ABG pO2 71.1 mm Hg (80.0-90.0) L 03/08/20 13:25 ABG O2 Saturation 97.0 % (95.0-99.0) 03/08/20 13:25 PT/INR, D-dimer PT 17.0 Sec. (12.2-14.9) H 11/23/19 03:47 INR 1.36 (0.87-1.13) H 11/23/19 03:47 Abnormal lab findings: Abnormal Labs 11/22/19 11/22/19 11/22/19 23:17 23:18 23:27 WBC 21.2 H RBC 3.59 L Hgb 9.8 L Hct MCH 27 L RDW 18.6 H Plt Count 454 H Lymph % (Auto) [place] % (Auto) [place] # Baso # Seg Neutrophils % Seg Neuts % (Manual) 86.0 H Lymphocytes % (Manual) 9.0 L Monocytes % (Manual) Seg Neutrophils # Seg Neutrophils # Man 18.2 H Lymphocytes # (Manual) Monocytes # (Manual) 1.1 H Eosinophils # (Manual) Basophils # (Manual) PT INR APTT ABG pH ABG pO2 ABG HCO3 ABG O2 Saturation ABG Base Excess ABG Hemoglobin Oxyhemoglobin Sodium Potassium Chloride Carbon Dioxide BUN Creatinine Glucose POC Glucose 53 L Lactic Acid Calcium Ionized Calcium Phosphorus Magnesium Total Bilirubin AST ALT Alkaline Phosphatase Ammonia Total Creatine Kinase CK-MB (CK-2) CK-MB (CK-2) Rel Index Total Protein Albumin Urine WBC (Auto) 40.0 H Vancomycin Trough Salicylates Acetaminophen Plasma/Serum Alcohol Crossmatch 11/22/19 11/22/19 11/22/19 23:27 23:27 23:27 WBC RBC Hgb Hct MCH RDW Plt Count Lymph % (Auto) [place] % (Auto) [place] # Baso # Seg Neutrophils % Seg Neuts % (Manual) Lymphocytes % (Manual) Monocytes % (Manual) Seg Neutrophils # Seg Neutrophils # Man Lymphocytes # (Manual) Monocytes # (Manual) Eosinophils # (Manual) Basophils # (Manual) PT INR APTT ABG pH ABG pO2 ABG HCO3 ABG O2 Saturation ABG Base Excess ABG Hemoglobin Oxyhemoglobin Sodium Potassium 2.4 L* Chloride 85.1 L Carbon Dioxide 19 L BUN Creatinine 0.5 L Glucose 261 H POC Glucose Lactic Acid Calcium Ionized Calcium Phosphorus Magnesium Total Bilirubin AST 609 H ALT 152 H Alkaline Phosphatase 160 H Ammonia 117.0 H Total Creatine Kinase 139 H CK-MB (CK-2) 8.3 H CK-MB (CK-2) Rel Index 5.9 H Total Protein Albumin 3.6 L Urine WBC (Auto) Vancomycin Trough Salicylates < 0.3 L Acetaminophen Plasma/Serum Alcohol Crossmatch 11/22/19 11/22/19 11/23/19 23:27 23:27 01:10 WBC RBC Hgb Hct MCH RDW Plt Count Lymph % (Auto) [place] % (Auto) [place] # Baso # Seg Neutrophils % Seg Neuts % (Manual) Lymphocytes % (Manual) Monocytes % (Manual) Seg Neutrophils # Seg Neutrophils # Man Lymphocytes # (Manual) Monocytes # (Manual) Eosinophils # (Manual) Basophils # (Manual) PT INR APTT ABG pH 7.273 L ABG pO2 209.7 H ABG HCO3 ABG O2 Saturation 99.2 H ABG Base Excess -3.9 L ABG Hemoglobin 10.6 L Oxyhemoglobin 93.9 L Sodium Potassium Chloride Carbon Dioxide BUN Creatinine Glucose POC Glucose Lactic Acid Calcium Ionized Calcium Phosphorus Magnesium Total Bilirubin AST ALT Alkaline Phosphatase Ammonia Total Creatine Kinase CK-MB (CK-2) CK-MB (CK-2) Rel Index Total Protein Albumin Urine WBC (Auto) Vancomycin Trough Salicylates Acetaminophen < 5.0 L Plasma/Serum Alcohol 0.08 H Crossmatch 11/23/19 11/23/19 11/23/19 01:19 01:19 03:47 WBC RBC Hgb Hct MCH RDW Plt Count Lymph % (Auto) [place] % (Auto) [place] # Baso # Seg Neutrophils % Seg Neuts % (Manual) Lymphocytes % (Manual) Monocytes % (Manual) Seg Neutrophils # Seg Neutrophils # Man Lymphocytes # (Manual) Monocytes # (Manual) Eosinophils # (Manual) Basophils # (Manual) PT 16.3 H INR 1.29 H APTT ABG pH ABG pO2 ABG HCO3 ABG O2 Saturation ABG Base Excess ABG Hemoglobin Oxyhemoglobin Sodium Potassium Chloride Carbon Dioxide BUN Creatinine Glucose POC Glucose Lactic Acid 2.10 H* 5.00 H* Calcium Ionized Calcium Phosphorus Magnesium Total Bilirubin AST ALT Alkaline Phosphatase Ammonia Total Creatine Kinase CK-MB (CK-2) CK-MB (CK-2) Rel Index Total Protein Albumin Urine WBC (Auto) Vancomycin Trough Salicylates Acetaminophen Plasma/Serum Alcohol Crossmatch 11/23/19 11/23/19 11/23/19 03:47 03:47 04:53 WBC RBC Hgb 9.4 L Hct MCH RDW Plt Count Lymph % (Auto) [place] % (Auto) [place] # Baso # Seg Neutrophils % Seg Neuts % (Manual) Lymphocytes % (Manual) Monocytes % (Manual) Seg Neutrophils # Seg Neutrophils # Man Lymphocytes # (Manual) Monocytes # (Manual) Eosinophils # (Manual) Basophils # (Manual) PT 17.0 H INR 1.36 H APTT 128.2 H* ABG pH ABG pO2 ABG HCO3 ABG O2 Saturation ABG Base Excess ABG Hemoglobin Oxyhemoglobin Sodium Potassium Chloride Carbon Dioxide 18 L BUN Creatinine 0.5 L Glucose 105 H POC Glucose Lactic Acid Calcium 8.3 L Ionized Calcium Phosphorus 2.40 L Magnesium Total Bilirubin 1.30 H AST 761 H ALT 158 H Alkaline Phosphatase 143 H Ammonia Total Creatine Kinase CK-MB (CK-2) CK-MB (CK-2) Rel Index Total Protein Albumin 2.8 L Urine WBC (Auto) Vancomycin Trough Salicylates Acetaminophen Plasma/Serum Alcohol Crossmatch 11/23/19 11/23/19 11/23/19 05:12 06:32 06:32 WBC 16.8 H RBC 3.31 L Hgb 8.9 L Hct 28.7 L MCH 27 L RDW 18.6 H Plt Count Lymph % (Auto) [place] % (Auto) [place] # Baso # Seg Neutrophils % Seg Neuts % (Manual) 94.0 H Lymphocytes % (Manual) 1.0 L Monocytes % (Manual) Seg Neutrophils # Seg Neutrophils # Man 15.8 H Lymphocytes # (Manual) 0.2 L Monocytes # (Manual) Eosinophils # (Manual) Basophils # (Manual) PT INR APTT ABG pH ABG pO2 ABG HCO3 ABG O2 Saturation ABG Base Excess -3.2 L ABG Hemoglobin 9.0 L Oxyhemoglobin 93.6 L Sodium Potassium Chloride Carbon Dioxide BUN Creatinine Glucose POC Glucose Lactic Acid Calcium Ionized Calcium 4.5 L Phosphorus Magnesium Total Bilirubin AST ALT Alkaline Phosphatase Ammonia Total Creatine Kinase CK-MB (CK-2) CK-MB (CK-2) Rel Index Total Protein Albumin Urine WBC (Auto) Vancomycin Trough Salicylates Acetaminophen Plasma/Serum Alcohol Crossmatch 11/23/19 11/24/19 11/24/19 06:32 04:35 04:35 WBC RBC Hgb Hct MCH RDW Plt Count Lymph % (Auto) [place] % (Auto) [place] # Baso # Seg Neutrophils % Seg Neuts % (Manual) Lymphocytes % (Manual) Monocytes % (Manual) Seg Neutrophils # Seg Neutrophils # Man Lymphocytes # (Manual) Monocytes # (Manual) Eosinophils # (Manual) Basophils # (Manual) PT INR APTT ABG pH ABG pO2 ABG HCO3 ABG O2 Saturation ABG Base Excess ABG Hemoglobin Oxyhemoglobin Sodium Potassium Chloride Carbon Dioxide BUN Creatinine Glucose POC Glucose Lactic Acid 3.30 H* Calcium Ionized Calcium Phosphorus Magnesium 1.40 L Total Bilirubin AST ALT Alkaline Phosphatase Ammonia 98.0 H Total Creatine Kinase CK-MB (CK-2) CK-MB (CK-2) Rel Index Total Protein Albumin Urine WBC (Auto) Vancomycin Trough Salicylates Acetaminophen Plasma/Serum Alcohol Crossmatch 11/24/19 11/25/19 11/25/19 05:22 04:34 05:05 WBC 17.3 H RBC 2.88 L Hgb 7.8 L Hct 24.6 L MCH 27 L RDW 18.5 H Plt Count Lymph % (Auto) 7.7 L [place] % (Auto) 9.7 H [place] # 1.7 H Baso # Seg Neutrophils % 82.2 H Seg Neuts % (Manual) Lymphocytes % (Manual) Monocytes % (Manual) Seg Neutrophils # 14.2 H Seg Neutrophils # Man Lymphocytes # (Manual) Monocytes # (Manual) Eosinophils # (Manual) Basophils # (Manual) PT INR APTT ABG pH 7.475 H ABG pO2 ABG HCO3 29.4 H 32.3 H ABG O2 Saturation ABG Base Excess 5.4 H 6.9 H ABG Hemoglobin 9.0 L 10.6 L Oxyhemoglobin 94.3 L Sodium Potassium Chloride Carbon Dioxide BUN Creatinine Glucose POC Glucose Lactic Acid Calcium Ionized Calcium Phosphorus Magnesium Total Bilirubin AST ALT Alkaline Phosphatase Ammonia Total Creatine Kinase CK-MB (CK-2) CK-MB (CK-2) Rel Index Total Protein Albumin Urine WBC (Auto) Vancomycin Trough Salicylates Acetaminophen Plasma/Serum Alcohol Crossmatch 11/25/19 11/25/19 11/26/19 05:05 22:46 03:31 WBC RBC Hgb Hct MCH RDW Plt Count Lymph % (Auto) [place] % (Auto) [place] # Baso # Seg Neutrophils % Seg Neuts % (Manual) Lymphocytes % (Manual) Monocytes % (Manual) Seg Neutrophils # Seg Neutrophils # Man Lymphocytes # (Manual) Monocytes # (Manual) Eosinophils # (Manual) Basophils # (Manual) PT INR APTT ABG pH 7.459 H ABG pO2 ABG HCO3 34.2 H ABG O2 Saturation ABG Base Excess 9.4 H ABG Hemoglobin 7.6 L Oxyhemoglobin 94.8 L Sodium 152 H D 147 H Potassium 2.3 L* D 2.8 L* D Chloride 107.8 H Carbon Dioxide 31 H D 33 H BUN Creatinine 0.6 L 0.6 L Glucose 148 H 177 H POC Glucose Lactic Acid Calcium Ionized Calcium Phosphorus Magnesium Total Bilirubin AST 105 H ALT 71 H Alkaline Phosphatase 155 H Ammonia Total Creatine Kinase CK-MB (CK-2) CK-MB (CK-2) Rel Index Total Protein 5.2 L D Albumin 2.9 L Urine WBC (Auto) Vancomycin Trough Salicylates Acetaminophen Plasma/Serum Alcohol Crossmatch 11/26/19 11/26/19 11/27/19 08:24 08:24 04:20 WBC 12.0 H RBC 3.00 L Hgb 8.0 L 9.3 L Hct 25.9 L 29.7 L MCH 27 L RDW 18.5 H Plt Count Lymph % (Auto) [place] % (Auto) [place] # Baso # Seg Neutrophils % Seg Neuts % (Manual) 89.0 H Lymphocytes % (Manual) 4.0 L Monocytes % (Manual) Seg Neutrophils # Seg Neutrophils # Man 10.7 H Lymphocytes # (Manual) 0.5 L Monocytes # (Manual) Eosinophils # (Manual) Basophils # (Manual) PT INR APTT ABG pH ABG pO2 ABG HCO3 ABG O2 Saturation ABG Base Excess ABG Hemoglobin Oxyhemoglobin Sodium 146 H Potassium 3.4 L D Chloride Carbon Dioxide BUN Creatinine 0.5 L Glucose 165 H POC Glucose Lactic Acid Calcium Ionized Calcium Phosphorus Magnesium Total Bilirubin AST 57 H ALT Alkaline Phosphatase 166 H Ammonia Total Creatine Kinase CK-MB (CK-2) CK-MB (CK-2) Rel Index Total Protein Albumin 2.9 L Urine WBC (Auto) Vancomycin Trough Salicylates Acetaminophen Plasma/Serum Alcohol Crossmatch 11/27/19 11/27/19 11/27/19 04:28 04:28 04:42 WBC RBC Hgb Hct MCH RDW Plt Count Lymph % (Auto) [place] % (Auto) [place] # Baso # Seg Neutrophils % Seg Neuts % (Manual) Lymphocytes % (Manual) Monocytes % (Manual) Seg Neutrophils # Seg Neutrophils # Man Lymphocytes # (Manual) Monocytes # (Manual) Eosinophils # (Manual) Basophils # (Manual) PT INR APTT ABG pH 7.470 H ABG pO2 74.0 L ABG HCO3 33.8 H ABG O2 Saturation ABG Base Excess 9.1 H ABG Hemoglobin 8.7 L Oxyhemoglobin 94.7 L Sodium 146 H Potassium 2.9 L* Chloride Carbon Dioxide BUN 25 H Creatinine Glucose 213 H POC Glucose Lactic Acid Calcium Ionized Calcium Phosphorus 1.00 L Magnesium Total Bilirubin AST ALT Alkaline Phosphatase Ammonia Total Creatine Kinase CK-MB (CK-2) CK-MB (CK-2) Rel Index Total Protein Albumin Urine WBC (Auto) Vancomycin Trough Salicylates Acetaminophen Plasma/Serum Alcohol Crossmatch 11/27/19 11/27/19 11/27/19 05:37 12:20 15:46 WBC RBC Hgb Hct MCH RDW Plt Count Lymph % (Auto) [place] % (Auto) [place] # Baso # Seg Neutrophils % Seg Neuts % (Manual) Lymphocytes % (Manual) Monocytes % (Manual) Seg Neutrophils # Seg Neutrophils # Man Lymphocytes # (Manual) Monocytes # (Manual) Eosinophils # (Manual) Basophils # (Manual) PT INR APTT ABG pH ABG pO2 ABG HCO3 ABG O2 Saturation ABG Base Excess ABG Hemoglobin Oxyhemoglobin Sodium 146 H Potassium 3.5 L D Chloride Carbon Dioxide BUN 24 H Creatinine 0.6 L Glucose 187 H POC Glucose 117 H 220 H Lactic Acid Calcium Ionized Calcium Phosphorus Magnesium Total Bilirubin AST ALT Alkaline Phosphatase Ammonia Total Creatine Kinase CK-MB (CK-2) CK-MB (CK-2) Rel Index Total Protein Albumin Urine WBC (Auto) Vancomycin Trough Salicylates Acetaminophen Plasma/Serum Alcohol Crossmatch 11/27/19 11/28/19 11/28/19 17:28 05:00 05:02 WBC RBC Hgb Hct MCH RDW Plt Count Lymph % (Auto) [place] % (Auto) [place] # Baso # Seg Neutrophils % Seg Neuts % (Manual) Lymphocytes % (Manual) Monocytes % (Manual) Seg Neutrophils # Seg Neutrophils # Man Lymphocytes # (Manual) Monocytes # (Manual) Eosinophils # (Manual) Basophils # (Manual) PT INR APTT ABG pH ABG pO2 72.4 L ABG HCO3 33.6 H ABG O2 Saturation 94.1 L ABG Base Excess 7.3 H ABG Hemoglobin Oxyhemoglobin 91.8 L Sodium 146 H Potassium 3.3 L Chloride Carbon Dioxide BUN 25 H Creatinine 0.6 L Glucose 176 H POC Glucose 198 H Lactic Acid Calcium Ionized Calcium Phosphorus Magnesium Total Bilirubin AST ALT Alkaline Phosphatase Ammonia Total Creatine Kinase CK-MB (CK-2) CK-MB (CK-2) Rel Index Total Protein Albumin Urine WBC (Auto) Vancomycin Trough Salicylates Acetaminophen Plasma/Serum Alcohol Crossmatch 11/28/19 11/28/19 11/29/19 05:02 18:55 10:43 WBC 15.2 H 19.0 H RBC 3.06 L 3.01 L Hgb 8.3 L 8.3 L Hct 27.0 L 26.4 L MCH 27 L RDW 19.0 H 19.7 H Plt Count 479 H 611 H Lymph % (Auto) [place] % (Auto) [place] # Baso # Seg Neutrophils % Seg Neuts % (Manual) 92.0 H Lymphocytes % (Manual) 2.0 L Monocytes % (Manual) Seg Neutrophils # Seg Neutrophils # Man 14.0 H Lymphocytes # (Manual) 0.3 L Monocytes # (Manual) Eosinophils # (Manual) Basophils # (Manual) PT INR APTT ABG pH ABG pO2 ABG HCO3 ABG O2 Saturation ABG Base Excess ABG Hemoglobin Oxyhemoglobin Sodium Potassium Chloride Carbon Dioxide BUN Creatinine Glucose POC Glucose 138 H Lactic Acid Calcium Ionized Calcium Phosphorus Magnesium Total Bilirubin AST ALT Alkaline Phosphatase Ammonia Total Creatine Kinase CK-MB (CK-2) CK-MB (CK-2) Rel Index Total Protein Albumin Urine WBC (Auto) Vancomycin Trough Salicylates Acetaminophen Plasma/Serum Alcohol Crossmatch 11/29/19 11/29/19 11/29/19 10:43 12:27 19:25 WBC RBC Hgb Hct MCH RDW Plt Count Lymph % (Auto) [place] % (Auto) [place] # Baso # Seg Neutrophils % Seg Neuts % (Manual) Lymphocytes % (Manual) Monocytes % (Manual) Seg Neutrophils # Seg Neutrophils # Man Lymphocytes # (Manual) Monocytes # (Manual) Eosinophils # (Manual) Basophils # (Manual) PT INR APTT ABG pH ABG pO2 ABG HCO3 ABG O2 Saturation ABG Base Excess ABG Hemoglobin Oxyhemoglobin Sodium Potassium 2.8 L* Chloride Carbon Dioxide BUN 20 H Creatinine 0.5 L Glucose 121 H POC Glucose 128 H 120 H Lactic Acid Calcium Ionized Calcium Phosphorus Magnesium Total Bilirubin AST ALT Alkaline Phosphatase Ammonia Total Creatine Kinase CK-MB (CK-2) CK-MB (CK-2) Rel Index Total Protein Albumin Urine WBC (Auto) Vancomycin Trough Salicylates Acetaminophen Plasma/Serum Alcohol Crossmatch 11/29/19 11/30/19 11/30/19 23:46 04:10 05:02 WBC RBC Hgb Hct MCH RDW Plt Count Lymph % (Auto) [place] % (Auto) [place] # Baso # Seg Neutrophils % Seg Neuts % (Manual) Lymphocytes % (Manual) Monocytes % (Manual) Seg Neutrophils # Seg Neutrophils # Man Lymphocytes # (Manual) Monocytes # (Manual) Eosinophils # (Manual) Basophils # (Manual) PT INR APTT ABG pH ABG pO2 76.3 L ABG HCO3 32.5 H ABG O2 Saturation ABG Base Excess 6.9 H ABG Hemoglobin 8.0 L Oxyhemoglobin 92.6 L Sodium Potassium Chloride Carbon Dioxide BUN Creatinine Glucose POC Glucose 116 H 128 H Lactic Acid Calcium Ionized Calcium Phosphorus Magnesium Total Bilirubin AST ALT Alkaline Phosphatase Ammonia Total Creatine Kinase CK-MB (CK-2) CK-MB (CK-2) Rel Index Total Protein Albumin Urine WBC (Auto) Vancomycin Trough Salicylates Acetaminophen Plasma/Serum Alcohol Crossmatch 11/30/19 11/30/19 11/30/19 05:25 05:25 12:59 WBC 18.4 H RBC 3.10 L Hgb 8.5 L Hct 27.5 L MCH 27 L RDW 20.9 H Plt Count 691 H Lymph % (Auto) 7.1 L [place] % (Auto) 7.7 H [place] # 1.4 H Baso # Seg Neutrophils % 83.4 H Seg Neuts % (Manual) Lymphocytes % (Manual) Monocytes % (Manual) Seg Neutrophils # 15.4 H Seg Neutrophils # Man Lymphocytes # (Manual) Monocytes # (Manual) Eosinophils # (Manual) Basophils # (Manual) PT INR APTT ABG pH ABG pO2 ABG HCO3 ABG O2 Saturation ABG Base Excess ABG Hemoglobin Oxyhemoglobin Sodium 146 H Potassium Chloride 107.2 H Carbon Dioxide BUN Creatinine 0.5 L Glucose 132 H POC Glucose 124 H Lactic Acid Calcium Ionized Calcium Phosphorus Magnesium Total Bilirubin AST 246 H ALT 274 H Alkaline Phosphatase 203 H Ammonia Total Creatine Kinase CK-MB (CK-2) CK-MB (CK-2) Rel Index Total Protein 5.4 L Albumin 2.9 L Urine WBC (Auto) Vancomycin Trough Salicylates Acetaminophen Plasma/Serum Alcohol Crossmatch 11/30/19 12/01/19 12/01/19 17:53 00:05 05:10 WBC RBC Hgb Hct MCH RDW Plt Count Lymph % (Auto) [place] % (Auto) [place] # Baso # Seg Neutrophils % Seg Neuts % (Manual) Lymphocytes % (Manual) Monocytes % (Manual) Seg Neutrophils # Seg Neutrophils # Man Lymphocytes # (Manual) Monocytes # (Manual) Eosinophils # (Manual) Basophils # (Manual) PT INR APTT ABG pH ABG pO2 ABG HCO3 ABG O2 Saturation ABG Base Excess ABG Hemoglobin Oxyhemoglobin Sodium Potassium Chloride Carbon Dioxide BUN Creatinine Glucose POC Glucose 113 H 143 H 145 H Lactic Acid Calcium Ionized Calcium Phosphorus Magnesium Total Bilirubin AST ALT Alkaline Phosphatase Ammonia Total Creatine Kinase CK-MB (CK-2) CK-MB (CK-2) Rel Index Total Protein Albumin Urine WBC (Auto) Vancomycin Trough Salicylates Acetaminophen Plasma/Serum Alcohol Crossmatch 12/01/19 12/01/19 12/01/19 05:33 08:23 08:23 WBC 22.7 H RBC 2.88 L Hgb 7.9 L Hct 25.2 L MCH 27 L RDW 21.0 H Plt Count 732 H Lymph % (Auto) [place] % (Auto) [place] # Baso # Seg Neutrophils % Seg Neuts % (Manual) 91.0 H Lymphocytes % (Manual) 3.0 L Monocytes % (Manual) Seg Neutrophils # Seg Neutrophils # Man 20.7 H Lymphocytes # (Manual) 0.7 L Monocytes # (Manual) 1.1 H Eosinophils # (Manual) Basophils # (Manual) PT INR APTT ABG pH ABG pO2 68.6 L ABG HCO3 34.1 H ABG O2 Saturation ABG Base Excess 9.0 H ABG Hemoglobin 6.5 L Oxyhemoglobin 94.7 L Sodium Potassium Chloride Carbon Dioxide BUN Creatinine 0.5 L Glucose 125 H POC Glucose Lactic Acid Calcium Ionized Calcium Phosphorus Magnesium Total Bilirubin AST ALT Alkaline Phosphatase Ammonia Total Creatine Kinase CK-MB (CK-2) CK-MB (CK-2) Rel Index Total Protein Albumin Urine WBC (Auto) Vancomycin Trough Salicylates Acetaminophen Plasma/Serum Alcohol Crossmatch 12/01/19 12/01/19 12/01/19 13:21 17:54 20:59 WBC RBC Hgb Hct MCH RDW Plt Count Lymph % (Auto) [place] % (Auto) [place] # Baso # Seg Neutrophils % Seg Neuts % (Manual) Lymphocytes % (Manual) Monocytes % (Manual) Seg Neutrophils # Seg Neutrophils # Man Lymphocytes # (Manual) Monocytes # (Manual) Eosinophils # (Manual) Basophils # (Manual) PT INR APTT ABG pH ABG pO2 78.3 L ABG HCO3 33.8 H ABG O2 Saturation 94.9 L ABG Base Excess 7.9 H ABG Hemoglobin 11.5 L Oxyhemoglobin 92.3 L Sodium Potassium Chloride Carbon Dioxide BUN Creatinine Glucose POC Glucose 111 H 115 H Lactic Acid Calcium Ionized Calcium Phosphorus Magnesium Total Bilirubin AST ALT Alkaline Phosphatase Ammonia Total Creatine Kinase CK-MB (CK-2) CK-MB (CK-2) Rel Index Total Protein Albumin Urine WBC (Auto) Vancomycin Trough Salicylates Acetaminophen Plasma/Serum Alcohol Crossmatch 12/02/19 12/03/19 12/04/19 12:55 20:00 04:26 WBC 15.2 H RBC 2.69 L Hgb 7.4 L Hct 23.6 L MCH 27 L RDW 19.9 H Plt Count 838 H Lymph % (Auto) [place] % (Auto) [place] # Baso # Seg Neutrophils % Seg Neuts % (Manual) Lymphocytes % (Manual) Monocytes % (Manual) Seg Neutrophils # Seg Neutrophils # Man Lymphocytes # (Manual) Monocytes # (Manual) Eosinophils # (Manual) Basophils # (Manual) PT INR APTT ABG pH ABG pO2 68.3 L ABG HCO3 33.5 H ABG O2 Saturation 93.5 L ABG Base Excess 8.4 H ABG Hemoglobin 7.3 L Oxyhemoglobin 90.9 L Sodium Potassium Chloride Carbon Dioxide BUN Creatinine Glucose POC Glucose 107 H Lactic Acid Calcium Ionized Calcium Phosphorus Magnesium Total Bilirubin AST ALT Alkaline Phosphatase Ammonia Total Creatine Kinase CK-MB (CK-2) CK-MB (CK-2) Rel Index Total Protein Albumin Urine WBC (Auto) Vancomycin Trough Salicylates Acetaminophen Plasma/Serum Alcohol Crossmatch 03/17/20 03/17/20 03/17/20 04:26 07:45 12:02 WBC 15.9 H RBC 2.88 L Hgb 7.9 L Hct 25.1 L MCH RDW 20.4 H Plt Count 839 H Lymph % (Auto) 11.3 L [place] % (Auto) 15.2 H [place] # 2.4 H Baso # Seg Neutrophils % 72.4 H Seg Neuts % (Manual) Lymphocytes % (Manual) Monocytes % (Manual) Seg Neutrophils # 11.5 H Seg Neutrophils # Man Lymphocytes # (Manual) Monocytes # (Manual) Eosinophils # (Manual) Basophils # (Manual) PT INR APTT ABG pH ABG pO2 ABG HCO3 ABG O2 Saturation ABG Base Excess ABG Hemoglobin Oxyhemoglobin Sodium Potassium Chloride 96.5 L Carbon Dioxide BUN 21 H Creatinine 0.6 L Glucose 107 H POC Glucose 138 H Lactic Acid Calcium Ionized Calcium Phosphorus Magnesium Total Bilirubin AST ALT Alkaline Phosphatase Ammonia Total Creatine Kinase CK-MB (CK-2) CK-MB (CK-2) Rel Index Total Protein Albumin Urine WBC (Auto) Vancomycin Trough Salicylates Acetaminophen Plasma/Serum Alcohol Crossmatch 12/04/19 12/05/19 12/05/19 18:16 11:55 18:36 WBC RBC Hgb Hct MCH RDW Plt Count Lymph % (Auto) [place] % (Auto) [place] # Baso # Seg Neutrophils % Seg Neuts % (Manual) Lymphocytes % (Manual) Monocytes % (Manual) Seg Neutrophils # Seg Neutrophils # Man Lymphocytes # (Manual) Monocytes # (Manual) Eosinophils # (Manual) Basophils # (Manual) PT INR APTT ABG pH ABG pO2 ABG HCO3 ABG O2 Saturation ABG Base Excess ABG Hemoglobin Oxyhemoglobin Sodium Potassium Chloride Carbon Dioxide BUN Creatinine Glucose POC Glucose 135 H 125 H 135 H Lactic Acid Calcium Ionized Calcium Phosphorus Magnesium Total Bilirubin AST ALT Alkaline Phosphatase Ammonia Total Creatine Kinase CK-MB (CK-2) CK-MB (CK-2) Rel Index Total Protein Albumin Urine WBC (Auto) Vancomycin Trough Salicylates Acetaminophen Plasma/Serum Alcohol Crossmatch 12/05/19 12/06/19 12/06/19 23:30 04:14 05:43 WBC RBC Hgb Hct MCH RDW Plt Count Lymph % (Auto) [place] % (Auto) [place] # Baso # Seg Neutrophils % Seg Neuts % (Manual) Lymphocytes % (Manual) Monocytes % (Manual) Seg Neutrophils # Seg Neutrophils # Man Lymphocytes # (Manual) Monocytes # (Manual) Eosinophils # (Manual) Basophils # (Manual) PT INR APTT ABG pH ABG pO2 ABG HCO3 ABG O2 Saturation ABG Base Excess ABG Hemoglobin Oxyhemoglobin Sodium Potassium 5.6 H Chloride 95.0 L Carbon Dioxide BUN 48 H Creatinine 1.3 H D Glucose POC Glucose 126 H 121 H Lactic Acid Calcium Ionized Calcium Phosphorus Magnesium Total Bilirubin AST 89 H ALT 98 H Alkaline Phosphatase 476 H Ammonia Total Creatine Kinase CK-MB (CK-2) CK-MB (CK-2) Rel Index Total Protein Albumin 2.8 L Urine WBC (Auto) Vancomycin Trough Salicylates Acetaminophen Plasma/Serum Alcohol Crossmatch 12/06/19 12/06/19 12/07/19 10:39 14:34 00:19 WBC 17.3 H RBC 2.60 L Hgb 7.1 L Hct 22.7 L MCH 27 L RDW 20.1 H Plt Count 832 H Lymph % (Auto) [place] % (Auto) [place] # Baso # Seg Neutrophils % Seg Neuts % (Manual) Lymphocytes % (Manual) Monocytes % (Manual) Seg Neutrophils # Seg Neutrophils # Man Lymphocytes # (Manual) Monocytes # (Manual) Eosinophils # (Manual) Basophils # (Manual) PT INR APTT ABG pH ABG pO2 ABG HCO3 ABG O2 Saturation ABG Base Excess ABG Hemoglobin Oxyhemoglobin Sodium Potassium Chloride Carbon Dioxide BUN Creatinine Glucose POC Glucose 128 H 136 H Lactic Acid Calcium Ionized Calcium Phosphorus Magnesium Total Bilirubin AST ALT Alkaline Phosphatase Ammonia Total Creatine Kinase CK-MB (CK-2) CK-MB (CK-2) Rel Index Total Protein Albumin Urine WBC (Auto) Vancomycin Trough Salicylates Acetaminophen Plasma/Serum Alcohol Crossmatch 12/07/19 12/07/19 12/07/19 03:44 03:44 05:53 WBC 16.2 H RBC 2.56 L Hgb 7.1 L Hct 22.3 L MCH RDW 19.4 H Plt Count 782 H Lymph % (Auto) [place] % (Auto) [place] # Baso # Seg Neutrophils % Seg Neuts % (Manual) Lymphocytes % (Manual) Monocytes % (Manual) Seg Neutrophils # Seg Neutrophils # Man Lymphocytes # (Manual) Monocytes # (Manual) Eosinophils # (Manual) Basophils # (Manual) PT INR APTT ABG pH ABG pO2 ABG HCO3 ABG O2 Saturation ABG Base Excess ABG Hemoglobin Oxyhemoglobin Sodium Potassium Chloride 95.6 L Carbon Dioxide BUN 56 H Creatinine 1.4 H Glucose 120 H POC Glucose 128 H Lactic Acid Calcium 10.3 H Ionized Calcium Phosphorus Magnesium Total Bilirubin AST ALT Alkaline Phosphatase Ammonia Total Creatine Kinase CK-MB (CK-2) CK-MB (CK-2) Rel Index Total Protein Albumin Urine WBC (Auto) Vancomycin Trough Salicylates Acetaminophen Plasma/Serum Alcohol Crossmatch 12/07/19 12/07/19 12/08/19 12:54 23:47 00:20 WBC RBC Hgb Hct MCH RDW Plt Count Lymph % (Auto) [place] % (Auto) [place] # Baso # Seg Neutrophils % Seg Neuts % (Manual) Lymphocytes % (Manual) Monocytes % (Manual) Seg Neutrophils # Seg Neutrophils # Man Lymphocytes # (Manual) Monocytes # (Manual) Eosinophils # (Manual) Basophils # (Manual) PT INR APTT ABG pH ABG pO2 ABG HCO3 ABG O2 Saturation ABG Base Excess ABG Hemoglobin Oxyhemoglobin Sodium Potassium Chloride Carbon Dioxide BUN Creatinine Glucose POC Glucose 128 H 130 H 124 H Lactic Acid Calcium Ionized Calcium Phosphorus Magnesium Total Bilirubin AST ALT Alkaline Phosphatase Ammonia Total Creatine Kinase CK-MB (CK-2) CK-MB (CK-2) Rel Index Total Protein Albumin Urine WBC (Auto) Vancomycin Trough Salicylates Acetaminophen Plasma/Serum Alcohol Crossmatch 12/08/19 12/08/19 12/08/19 06:38 12:04 18:26 WBC RBC Hgb Hct MCH RDW Plt Count Lymph % (Auto) [place] % (Auto) [place] # Baso # Seg Neutrophils % Seg Neuts % (Manual) Lymphocytes % (Manual) Monocytes % (Manual) Seg Neutrophils # Seg Neutrophils # Man Lymphocytes # (Manual) Monocytes # (Manual) Eosinophils # (Manual) Basophils # (Manual) PT INR APTT ABG pH ABG pO2 ABG HCO3 ABG O2 Saturation ABG Base Excess ABG Hemoglobin Oxyhemoglobin Sodium Potassium Chloride Carbon Dioxide BUN Creatinine Glucose POC Glucose 137 H 129 H 150 H Lactic Acid Calcium Ionized Calcium Phosphorus Magnesium Total Bilirubin AST ALT Alkaline Phosphatase Ammonia Total Creatine Kinase CK-MB (CK-2) CK-MB (CK-2) Rel Index Total Protein Albumin Urine WBC (Auto) Vancomycin Trough Salicylates Acetaminophen Plasma/Serum Alcohol Crossmatch 12/09/19 12/09/19 12/09/19 00:56 05:34 06:13 WBC RBC Hgb Hct MCH RDW Plt Count Lymph % (Auto) [place] % (Auto) [place] # Baso # Seg Neutrophils % Seg Neuts % (Manual) Lymphocytes % (Manual) Monocytes % (Manual) Seg Neutrophils # Seg Neutrophils # Man Lymphocytes # (Manual) Monocytes # (Manual) Eosinophils # (Manual) Basophils # (Manual) PT INR APTT ABG pH ABG pO2 ABG HCO3 ABG O2 Saturation ABG Base Excess ABG Hemoglobin Oxyhemoglobin Sodium 146 H Potassium Chloride Carbon Dioxide BUN 66 H Creatinine 1.9 H Glucose 116 H POC Glucose 130 H 130 H Lactic Acid Calcium Ionized Calcium Phosphorus Magnesium Total Bilirubin AST ALT Alkaline Phosphatase Ammonia Total Creatine Kinase CK-MB (CK-2) CK-MB (CK-2) Rel Index Total Protein Albumin Urine WBC (Auto) Vancomycin Trough Salicylates Acetaminophen Plasma/Serum Alcohol Crossmatch 12/09/19 12/09/19 12/10/19 11:52 17:50 00:14 WBC RBC Hgb Hct MCH RDW Plt Count Lymph % (Auto) [place] % (Auto) [place] # Baso # Seg Neutrophils % Seg Neuts % (Manual) Lymphocytes % (Manual) Monocytes % (Manual) Seg Neutrophils # Seg Neutrophils # Man Lymphocytes # (Manual) Monocytes # (Manual) Eosinophils # (Manual) Basophils # (Manual) PT INR APTT ABG pH ABG pO2 ABG HCO3 ABG O2 Saturation ABG Base Excess ABG Hemoglobin Oxyhemoglobin Sodium Potassium Chloride Carbon Dioxide BUN Creatinine Glucose POC Glucose 135 H 120 H 116 H Lactic Acid Calcium Ionized Calcium Phosphorus Magnesium Total Bilirubin AST ALT Alkaline Phosphatase Ammonia Total Creatine Kinase CK-MB (CK-2) CK-MB (CK-2) Rel Index Total Protein Albumin Urine WBC (Auto) Vancomycin Trough Salicylates Acetaminophen Plasma/Serum Alcohol Crossmatch 12/10/19 12/10/19 12/10/19 05:38 11:38 17:34 WBC RBC Hgb Hct MCH RDW Plt Count Lymph % (Auto) [place] % (Auto) [place] # Baso # Seg Neutrophils % Seg Neuts % (Manual) Lymphocytes % (Manual) Monocytes % (Manual) Seg Neutrophils # Seg Neutrophils # Man Lymphocytes # (Manual) Monocytes # (Manual) Eosinophils # (Manual) Basophils # (Manual) PT INR APTT ABG pH ABG pO2 ABG HCO3 ABG O2 Saturation ABG Base Excess ABG Hemoglobin Oxyhemoglobin Sodium Potassium Chloride Carbon Dioxide BUN Creatinine Glucose POC Glucose 115 H 112 H 130 H Lactic Acid Calcium Ionized Calcium Phosphorus Magnesium Total Bilirubin AST ALT Alkaline Phosphatase Ammonia Total Creatine Kinase CK-MB (CK-2) CK-MB (CK-2) Rel Index Total Protein Albumin Urine WBC (Auto) Vancomycin Trough Salicylates Acetaminophen Plasma/Serum Alcohol Crossmatch 12/11/19 12/11/19 12/11/19 00:20 05:31 12:22 WBC RBC Hgb Hct MCH RDW Plt Count Lymph % (Auto) [place] % (Auto) [place] # Baso # Seg Neutrophils % Seg Neuts % (Manual) Lymphocytes % (Manual) Monocytes % (Manual) Seg Neutrophils # Seg Neutrophils # Man Lymphocytes # (Manual) Monocytes # (Manual) Eosinophils # (Manual) Basophils # (Manual) PT INR APTT ABG pH ABG pO2 ABG HCO3 ABG O2 Saturation ABG Base Excess ABG Hemoglobin Oxyhemoglobin Sodium Potassium Chloride Carbon Dioxide BUN Creatinine Glucose POC Glucose 124 H 132 H 128 H Lactic Acid Calcium Ionized Calcium Phosphorus Magnesium Total Bilirubin AST ALT Alkaline Phosphatase Ammonia Total Creatine Kinase CK-MB (CK-2) CK-MB (CK-2) Rel Index Total Protein Albumin Urine WBC (Auto) Vancomycin Trough Salicylates Acetaminophen Plasma/Serum Alcohol Crossmatch 12/11/19 12/11/19 12/12/19 18:04 23:42 03:51 WBC RBC Hgb Hct MCH RDW Plt Count Lymph % (Auto) [place] % (Auto) [place] # Baso # Seg Neutrophils % Seg Neuts % (Manual) Lymphocytes % (Manual) Monocytes % (Manual) Seg Neutrophils # Seg Neutrophils # Man Lymphocytes # (Manual) Monocytes # (Manual) Eosinophils # (Manual) Basophils # (Manual) PT INR APTT ABG pH ABG pO2 ABG HCO3 ABG O2 Saturation ABG Base Excess ABG Hemoglobin Oxyhemoglobin Sodium 149 H Potassium Chloride Carbon Dioxide 20 L D BUN 77 H Creatinine 2.8 H Glucose POC Glucose 133 H 154 H Lactic Acid Calcium Ionized Calcium Phosphorus Magnesium Total Bilirubin AST ALT Alkaline Phosphatase Ammonia Total Creatine Kinase CK-MB (CK-2) CK-MB (CK-2) Rel Index Total Protein Albumin Urine WBC (Auto) Vancomycin Trough Salicylates Acetaminophen Plasma/Serum Alcohol Crossmatch 12/12/19 12/12/19 12/12/19 05:18 05:26 10:30 WBC 18.0 H RBC 2.51 L Hgb 6.8 L Hct 22.0 L MCH 27 L RDW 19.9 H Plt Count 582 H Lymph % (Auto) [place] % (Auto) [place] # Baso # Seg Neutrophils % Seg Neuts % (Manual) Lymphocytes % (Manual) Monocytes % (Manual) Seg Neutrophils # Seg Neutrophils # Man Lymphocytes # (Manual) Monocytes # (Manual) Eosinophils # (Manual) Basophils # (Manual) PT INR APTT ABG pH ABG pO2 ABG HCO3 ABG O2 Saturation ABG Base Excess ABG Hemoglobin Oxyhemoglobin Sodium Potassium Chloride Carbon Dioxide BUN Creatinine Glucose POC Glucose 135 H Lactic Acid Calcium Ionized Calcium Phosphorus Magnesium Total Bilirubin AST ALT Alkaline Phosphatase Ammonia Total Creatine Kinase CK-MB (CK-2) CK-MB (CK-2) Rel Index Total Protein Albumin Urine WBC (Auto) Vancomycin Trough Salicylates Acetaminophen Plasma/Serum Alcohol Crossmatch See Detail 12/12/19 12/12/19 12/12/19 11:44 18:10 23:21 WBC RBC Hgb Hct MCH RDW Plt Count Lymph % (Auto) [place] % (Auto) [place] # Baso # Seg Neutrophils % Seg Neuts % (Manual) Lymphocytes % (Manual) Monocytes % (Manual) Seg Neutrophils # Seg Neutrophils # Man Lymphocytes # (Manual) Monocytes # (Manual) Eosinophils # (Manual) Basophils # (Manual) PT INR APTT ABG pH ABG pO2 ABG HCO3 ABG O2 Saturation ABG Base Excess ABG Hemoglobin Oxyhemoglobin Sodium Potassium Chloride Carbon Dioxide BUN Creatinine Glucose POC Glucose 108 H 107 H 126 H Lactic Acid Calcium Ionized Calcium Phosphorus Magnesium Total Bilirubin AST ALT Alkaline Phosphatase Ammonia Total Creatine Kinase CK-MB (CK-2) CK-MB (CK-2) Rel Index Total Protein Albumin Urine WBC (Auto) Vancomycin Trough Salicylates Acetaminophen Plasma/Serum Alcohol Crossmatch 12/13/19 12/13/19 12/13/19 05:41 07:48 07:48 WBC 38.3 H RBC 2.37 L Hgb 6.3 L Hct 20.9 L MCH 27 L RDW 20.2 H Plt Count 546 H Lymph % (Auto) [place] % (Auto) [place] # Baso # Seg Neutrophils % Seg Neuts % (Manual) 93.0 H Lymphocytes % (Manual) 1.0 L Monocytes % (Manual) Seg Neutrophils # Seg Neutrophils # Man 35.6 H Lymphocytes # (Manual) 0.4 L Monocytes # (Manual) Eosinophils # (Manual) Basophils # (Manual) 0.4 H PT INR APTT ABG pH ABG pO2 ABG HCO3 ABG O2 Saturation ABG Base Excess ABG Hemoglobin Oxyhemoglobin Sodium 152 H Potassium 3.1 L D Chloride 111.9 H Carbon Dioxide 21 L BUN 53 H Creatinine 1.9 H Glucose 141 H POC Glucose 128 H Lactic Acid Calcium Ionized Calcium Phosphorus Magnesium Total Bilirubin AST ALT Alkaline Phosphatase 316 H Ammonia Total Creatine Kinase CK-MB (CK-2) CK-MB (CK-2) Rel Index Total Protein Albumin 2.4 L Urine WBC (Auto) Vancomycin Trough Salicylates Acetaminophen Plasma/Serum Alcohol Crossmatch 12/13/19 12/13/19 12/14/19 18:17 23:19 05:36 WBC RBC Hgb Hct MCH RDW Plt Count Lymph % (Auto) [place] % (Auto) [place] # Baso # Seg Neutrophils % Seg Neuts % (Manual) Lymphocytes % (Manual) Monocytes % (Manual) Seg Neutrophils # Seg Neutrophils # Man Lymphocytes # (Manual) Monocytes # (Manual) Eosinophils # (Manual) Basophils # (Manual) PT INR APTT ABG pH ABG pO2 ABG HCO3 ABG O2 Saturation ABG Base Excess ABG Hemoglobin Oxyhemoglobin Sodium Potassium Chloride Carbon Dioxide BUN Creatinine Glucose POC Glucose 141 H 158 H 182 H Lactic Acid Calcium Ionized Calcium Phosphorus Magnesium Total Bilirubin AST ALT Alkaline Phosphatase Ammonia Total Creatine Kinase CK-MB (CK-2) CK-MB (CK-2) Rel Index Total Protein Albumin Urine WBC (Auto) Vancomycin Trough Salicylates Acetaminophen Plasma/Serum Alcohol Crossmatch 12/14/19 12/14/19 12/14/19 08:48 08:48 10:31 WBC 33.3 H RBC 2.70 L Hgb 7.9 L 8.0 L Hct 25.3 L 24.0 L MCH RDW 19.2 H Plt Count 476 H Lymph % (Auto) [place] % (Auto) [place] # Baso # Seg Neutrophils % Seg Neuts % (Manual) Lymphocytes % (Manual) Monocytes % (Manual) Seg Neutrophils # Seg Neutrophils # Man Lymphocytes # (Manual) Monocytes # (Manual) Eosinophils # (Manual) Basophils # (Manual) PT INR APTT ABG pH ABG pO2 ABG HCO3 ABG O2 Saturation ABG Base Excess ABG Hemoglobin Oxyhemoglobin Sodium 153 H Potassium 2.5 L* Chloride 114.9 H Carbon Dioxide 20 L BUN 38 H Creatinine 1.4 H Glucose 177 H POC Glucose Lactic Acid Calcium Ionized Calcium Phosphorus Magnesium Total Bilirubin AST ALT Alkaline Phosphatase Ammonia Total Creatine Kinase CK-MB (CK-2) CK-MB (CK-2) Rel Index Total Protein Albumin Urine WBC (Auto) Vancomycin Trough Salicylates Acetaminophen Plasma/Serum Alcohol Crossmatch 12/14/19 12/14/19 12/14/19 12:57 16:15 17:50 WBC RBC Hgb Hct MCH RDW Plt Count Lymph % (Auto) [place] % (Auto) [place] # Baso # Seg Neutrophils % Seg Neuts % (Manual) Lymphocytes % (Manual) Monocytes % (Manual) Seg Neutrophils # Seg Neutrophils # Man Lymphocytes # (Manual) Monocytes # (Manual) Eosinophils # (Manual) Basophils # (Manual) PT INR APTT ABG pH ABG pO2 73.6 L ABG HCO3 ABG O2 Saturation ABG Base Excess ABG Hemoglobin 7.6 L Oxyhemoglobin 94.0 L Sodium Potassium Chloride Carbon Dioxide BUN Creatinine Glucose POC Glucose 174 H 150 H Lactic Acid Calcium Ionized Calcium Phosphorus Magnesium Total Bilirubin AST ALT Alkaline Phosphatase Ammonia Total Creatine Kinase CK-MB (CK-2) CK-MB (CK-2) Rel Index Total Protein Albumin Urine WBC (Auto) Vancomycin Trough Salicylates Acetaminophen Plasma/Serum Alcohol Crossmatch 12/15/19 12/15/19 12/15/19 00:28 05:27 07:23 WBC 30.0 H RBC 3.11 L Hgb 8.6 L Hct 27.7 L MCH RDW 20.0 H Plt Count 473 H Lymph % (Auto) [place] % (Auto) [place] # Baso # Seg Neutrophils % Seg Neuts % (Manual) Lymphocytes % (Manual) Monocytes % (Manual) Seg Neutrophils # Seg Neutrophils # Man Lymphocytes # (Manual) Monocytes # (Manual) Eosinophils # (Manual) Basophils # (Manual) PT INR APTT ABG pH ABG pO2 ABG HCO3 ABG O2 Saturation ABG Base Excess ABG Hemoglobin Oxyhemoglobin Sodium Potassium Chloride Carbon Dioxide BUN Creatinine Glucose POC Glucose 167 H 148 H Lactic Acid Calcium Ionized Calcium Phosphorus Magnesium Total Bilirubin AST ALT Alkaline Phosphatase Ammonia Total Creatine Kinase CK-MB (CK-2) CK-MB (CK-2) Rel Index Total Protein Albumin Urine WBC (Auto) Vancomycin Trough Salicylates Acetaminophen Plasma/Serum Alcohol Crossmatch 12/15/19 12/15/19 12/15/19 07:23 12:21 17:41 WBC RBC Hgb Hct MCH RDW Plt Count Lymph % (Auto) [place] % (Auto) [place] # Baso # Seg Neutrophils % Seg Neuts % (Manual) Lymphocytes % (Manual) Monocytes % (Manual) Seg Neutrophils # Seg Neutrophils # Man Lymphocytes # (Manual) Monocytes # (Manual) Eosinophils # (Manual) Basophils # (Manual) PT INR APTT ABG pH ABG pO2 ABG HCO3 ABG O2 Saturation ABG Base Excess ABG Hemoglobin Oxyhemoglobin Sodium 147 H Potassium 3.5 L D Chloride 111.2 H Carbon Dioxide 19 L BUN 29 H Creatinine Glucose 126 H POC Glucose 154 H 144 H Lactic Acid Calcium Ionized Calcium Phosphorus Magnesium Total Bilirubin AST ALT Alkaline Phosphatase Ammonia Total Creatine Kinase CK-MB (CK-2) CK-MB (CK-2) Rel Index Total Protein Albumin Urine WBC (Auto) Vancomycin Trough Salicylates Acetaminophen Plasma/Serum Alcohol Crossmatch 12/16/19 12/16/19 12/16/19 00:22 05:30 05:44 WBC 30.8 H RBC 2.58 L Hgb 7.1 L Hct 22.7 L MCH RDW 19.6 H Plt Count 451 H Lymph % (Auto) [place] % (Auto) [place] # Baso # Seg Neutrophils % Seg Neuts % (Manual) Lymphocytes % (Manual) Monocytes % (Manual) Seg Neutrophils # Seg Neutrophils # Man Lymphocytes # (Manual) Monocytes # (Manual) Eosinophils # (Manual) Basophils # (Manual) PT INR APTT ABG pH ABG pO2 ABG HCO3 ABG O2 Saturation ABG Base Excess ABG Hemoglobin Oxyhemoglobin Sodium Potassium Chloride Carbon Dioxide BUN Creatinine Glucose POC Glucose 139 H 126 H Lactic Acid Calcium Ionized Calcium Phosphorus Magnesium Total Bilirubin AST ALT Alkaline Phosphatase Ammonia Total Creatine Kinase CK-MB (CK-2) CK-MB (CK-2) Rel Index Total Protein Albumin Urine WBC (Auto) Vancomycin Trough Salicylates Acetaminophen Plasma/Serum Alcohol Crossmatch 12/16/19 12/16/19 12/16/19 05:44 11:48 17:37 WBC RBC Hgb Hct MCH RDW Plt Count Lymph % (Auto) [place] % (Auto) [place] # Baso # Seg Neutrophils % Seg Neuts % (Manual) Lymphocytes % (Manual) Monocytes % (Manual) Seg Neutrophils # Seg Neutrophils # Man Lymphocytes # (Manual) Monocytes # (Manual) Eosinophils # (Manual) Basophils # (Manual) PT INR APTT ABG pH ABG pO2 ABG HCO3 ABG O2 Saturation ABG Base Excess ABG Hemoglobin Oxyhemoglobin Sodium Potassium 3.4 L Chloride 109.2 H Carbon Dioxide 19 L BUN 27 H Creatinine Glucose 124 H POC Glucose 125 H 148 H Lactic Acid Calcium Ionized Calcium Phosphorus Magnesium Total Bilirubin AST ALT Alkaline Phosphatase Ammonia Total Creatine Kinase CK-MB (CK-2) CK-MB (CK-2) Rel Index Total Protein Albumin Urine WBC (Auto) Vancomycin Trough Salicylates Acetaminophen Plasma/Serum Alcohol Crossmatch 12/16/19 12/17/19 12/17/19 23:43 05:28 12:47 WBC RBC Hgb Hct MCH RDW Plt Count Lymph % (Auto) [place] % (Auto) [place] # Baso # Seg Neutrophils % Seg Neuts % (Manual) Lymphocytes % (Manual) Monocytes % (Manual) Seg Neutrophils # Seg Neutrophils # Man Lymphocytes # (Manual) Monocytes # (Manual) Eosinophils # (Manual) Basophils # (Manual) PT INR APTT ABG pH ABG pO2 ABG HCO3 ABG O2 Saturation ABG Base Excess ABG Hemoglobin Oxyhemoglobin Sodium Potassium Chloride Carbon Dioxide BUN Creatinine Glucose POC Glucose 142 H 140 H 125 H Lactic Acid Calcium Ionized Calcium Phosphorus Magnesium Total Bilirubin AST ALT Alkaline Phosphatase Ammonia Total Creatine Kinase CK-MB (CK-2) CK-MB (CK-2) Rel Index Total Protein Albumin Urine WBC (Auto) Vancomycin Trough Salicylates Acetaminophen Plasma/Serum Alcohol Crossmatch 12/17/19 12/17/19 12/17/19 17:05 18:00 Unknown WBC RBC Hgb Hct MCH RDW Plt Count Lymph % (Auto) [place] % (Auto) [place] # Baso # Seg Neutrophils % Seg Neuts % (Manual) Lymphocytes % (Manual) Monocytes % (Manual) Seg Neutrophils # Seg Neutrophils # Man Lymphocytes # (Manual) Monocytes # (Manual) Eosinophils # (Manual) Basophils # (Manual) PT INR APTT ABG pH ABG pO2 68.1 L ABG HCO3 ABG O2 Saturation 93.7 L ABG Base Excess ABG Hemoglobin 5.0 L Oxyhemoglobin 91.7 L Sodium Potassium Chloride Carbon Dioxide BUN Creatinine Glucose POC Glucose 140 H Lactic Acid Calcium Ionized Calcium Phosphorus Magnesium Total Bilirubin AST ALT Alkaline Phosphatase Ammonia Total Creatine Kinase CK-MB (CK-2) CK-MB (CK-2) Rel Index Total Protein Albumin Urine WBC (Auto) Vancomycin Trough Salicylates Acetaminophen Plasma/Serum Alcohol Crossmatch 12/18/19 12/18/19 12/18/19 00:16 04:53 04:53 WBC 28.6 H RBC 2.27 L Hgb 6.3 L Hct 19.5 L* MCH RDW 20.0 H Plt Count 497 H Lymph % (Auto) [place] % (Auto) [place] # Baso # Seg Neutrophils % Seg Neuts % (Manual) Lymphocytes % (Manual) Monocytes % (Manual) Seg Neutrophils # Seg Neutrophils # Man Lymphocytes # (Manual) Monocytes # (Manual) Eosinophils # (Manual) Basophils # (Manual) PT INR APTT ABG pH ABG pO2 ABG HCO3 ABG O2 Saturation ABG Base Excess ABG Hemoglobin Oxyhemoglobin Sodium Potassium Chloride 107.9 H Carbon Dioxide 20 L BUN 27 H Creatinine 0.6 L Glucose 116 H POC Glucose 123 H Lactic Acid Calcium Ionized Calcium Phosphorus Magnesium Total Bilirubin AST ALT Alkaline Phosphatase Ammonia Total Creatine Kinase CK-MB (CK-2) CK-MB (CK-2) Rel Index Total Protein Albumin Urine WBC (Auto) Vancomycin Trough Salicylates Acetaminophen Plasma/Serum Alcohol Crossmatch 12/18/19 12/18/19 12/18/19 06:38 11:22 12:08 WBC RBC Hgb Hct MCH RDW Plt Count Lymph % (Auto) [place] % (Auto) [place] # Baso # Seg Neutrophils % Seg Neuts % (Manual) Lymphocytes % (Manual) Monocytes % (Manual) Seg Neutrophils # Seg Neutrophils # Man Lymphocytes # (Manual) Monocytes # (Manual) Eosinophils # (Manual) Basophils # (Manual) PT INR APTT ABG pH ABG pO2 ABG HCO3 ABG O2 Saturation ABG Base Excess ABG Hemoglobin Oxyhemoglobin Sodium Potassium Chloride Carbon Dioxide BUN Creatinine Glucose POC Glucose 120 H 127 H Lactic Acid Calcium Ionized Calcium Phosphorus Magnesium Total Bilirubin AST ALT Alkaline Phosphatase Ammonia Total Creatine Kinase CK-MB (CK-2) CK-MB (CK-2) Rel Index Total Protein Albumin Urine WBC (Auto) Vancomycin Trough Salicylates Acetaminophen Plasma/Serum Alcohol Crossmatch See Detail 12/18/19 12/18/19 12/18/19 14:05 17:49 23:53 WBC RBC Hgb Hct MCH RDW Plt Count Lymph % (Auto) [place] % (Auto) [place] # Baso # Seg Neutrophils % Seg Neuts % (Manual) Lymphocytes % (Manual) Monocytes % (Manual) Seg Neutrophils # Seg Neutrophils # Man Lymphocytes # (Manual) Monocytes # (Manual) Eosinophils # (Manual) Basophils # (Manual) PT INR APTT ABG pH 7.267 L ABG pO2 69.8 L ABG HCO3 ABG O2 Saturation 88.4 L ABG Base Excess ABG Hemoglobin 7.1 L Oxyhemoglobin 86.4 L Sodium Potassium Chloride Carbon Dioxide BUN Creatinine Glucose POC Glucose 157 H 128 H Lactic Acid Calcium Ionized Calcium Phosphorus Magnesium Total Bilirubin AST ALT Alkaline Phosphatase Ammonia Total Creatine Kinase CK-MB (CK-2) CK-MB (CK-2) Rel Index Total Protein Albumin Urine WBC (Auto) Vancomycin Trough Salicylates Acetaminophen Plasma/Serum Alcohol Crossmatch 12/19/19 12/19/19 12/19/19 03:37 03:37 05:25 WBC 31.3 H RBC 2.60 L Hgb 7.6 L Hct 23.0 L MCH RDW 19.4 H Plt Count 530 H Lymph % (Auto) [place] % (Auto) [place] # Baso # Seg Neutrophils % Seg Neuts % (Manual) Lymphocytes % (Manual) Monocytes % (Manual) Seg Neutrophils # Seg Neutrophils # Man Lymphocytes # (Manual) Monocytes # (Manual) Eosinophils # (Manual) Basophils # (Manual) PT INR APTT ABG pH ABG pO2 ABG HCO3 ABG O2 Saturation ABG Base Excess ABG Hemoglobin Oxyhemoglobin Sodium Potassium Chloride Carbon Dioxide 18 L BUN 36 H Creatinine Glucose 111 H POC Glucose 123 H Lactic Acid Calcium Ionized Calcium Phosphorus Magnesium Total Bilirubin AST ALT Alkaline Phosphatase Ammonia Total Creatine Kinase CK-MB (CK-2) CK-MB (CK-2) Rel Index Total Protein Albumin Urine WBC (Auto) Vancomycin Trough Salicylates Acetaminophen Plasma/Serum Alcohol Crossmatch 12/19/19 12/19/19 12/20/19 12:59 18:33 00:00 WBC RBC Hgb Hct MCH RDW Plt Count Lymph % (Auto) [place] % (Auto) [place] # Baso # Seg Neutrophils % Seg Neuts % (Manual) Lymphocytes % (Manual) Monocytes % (Manual) Seg Neutrophils # Seg Neutrophils # Man Lymphocytes # (Manual) Monocytes # (Manual) Eosinophils # (Manual) Basophils # (Manual) PT INR APTT ABG pH ABG pO2 ABG HCO3 ABG O2 Saturation ABG Base Excess ABG Hemoglobin Oxyhemoglobin Sodium Potassium Chloride Carbon Dioxide BUN Creatinine Glucose POC Glucose 130 H 118 H 135 H Lactic Acid Calcium Ionized Calcium Phosphorus Magnesium Total Bilirubin AST ALT Alkaline Phosphatase Ammonia Total Creatine Kinase CK-MB (CK-2) CK-MB (CK-2) Rel Index Total Protein Albumin Urine WBC (Auto) Vancomycin Trough Salicylates Acetaminophen Plasma/Serum Alcohol Crossmatch 12/20/19 12/20/19 12/20/19 05:46 12:31 18:07 WBC RBC Hgb Hct MCH RDW Plt Count Lymph % (Auto) [place] % (Auto) [place] # Baso # Seg Neutrophils % Seg Neuts % (Manual) Lymphocytes % (Manual) Monocytes % (Manual) Seg Neutrophils # Seg Neutrophils # Man Lymphocytes # (Manual) Monocytes # (Manual) Eosinophils # (Manual) Basophils # (Manual) PT INR APTT ABG pH ABG pO2 ABG HCO3 ABG O2 Saturation ABG Base Excess ABG Hemoglobin Oxyhemoglobin Sodium Potassium Chloride Carbon Dioxide BUN Creatinine Glucose POC Glucose 131 H 128 H 134 H Lactic Acid Calcium Ionized Calcium Phosphorus Magnesium Total Bilirubin AST ALT Alkaline Phosphatase Ammonia Total Creatine Kinase CK-MB (CK-2) CK-MB (CK-2) Rel Index Total Protein Albumin Urine WBC (Auto) Vancomycin Trough Salicylates Acetaminophen Plasma/Serum Alcohol Crossmatch 12/21/19 12/21/19 12/21/19 03:28 03:28 07:21 WBC 29.4 H RBC 2.30 L Hgb 6.8 L Hct 20.2 L MCH RDW 20.2 H Plt Count 746 H Lymph % (Auto) [place] % (Auto) [place] # Baso # Seg Neutrophils % Seg Neuts % (Manual) 85.0 H Lymphocytes % (Manual) 8.0 L Monocytes % (Manual) Seg Neutrophils # Seg Neutrophils # Man 25.0 H Lymphocytes # (Manual) Monocytes # (Manual) 1.5 H Eosinophils # (Manual) 0.6 H Basophils # (Manual) PT INR APTT ABG pH ABG pO2 ABG HCO3 ABG O2 Saturation ABG Base Excess ABG Hemoglobin Oxyhemoglobin Sodium Potassium Chloride Carbon Dioxide 17 L BUN 57 H Creatinine 1.4 H D Glucose POC Glucose 124 H Lactic Acid Calcium Ionized Calcium Phosphorus Magnesium Total Bilirubin AST ALT Alkaline Phosphatase Ammonia Total Creatine Kinase CK-MB (CK-2) CK-MB (CK-2) Rel Index Total Protein Albumin Urine WBC (Auto) Vancomycin Trough Salicylates Acetaminophen Plasma/Serum Alcohol Crossmatch 12/21/19 12/21/19 12/21/19 08:56 12:06 14:53 WBC RBC Hgb 7.2 L Hct 22.9 L MCH RDW Plt Count Lymph % (Auto) [place] % (Auto) [place] # Baso # Seg Neutrophils % Seg Neuts % (Manual) Lymphocytes % (Manual) Monocytes % (Manual) Seg Neutrophils # Seg Neutrophils # Man Lymphocytes # (Manual) Monocytes # (Manual) Eosinophils # (Manual) Basophils # (Manual) PT INR APTT ABG pH ABG pO2 ABG HCO3 ABG O2 Saturation ABG Base Excess ABG Hemoglobin Oxyhemoglobin Sodium Potassium Chloride Carbon Dioxide BUN Creatinine Glucose POC Glucose 116 H Lactic Acid Calcium Ionized Calcium Phosphorus Magnesium Total Bilirubin AST ALT Alkaline Phosphatase Ammonia Total Creatine Kinase CK-MB (CK-2) CK-MB (CK-2) Rel Index Total Protein Albumin Urine WBC (Auto) Vancomycin Trough 33.8 H Salicylates Acetaminophen Plasma/Serum Alcohol Crossmatch 12/21/19 12/21/19 12/21/19 14:54 17:27 23:49 WBC RBC Hgb Hct MCH RDW Plt Count Lymph % (Auto) [place] % (Auto) [place] # Baso # Seg Neutrophils % Seg Neuts % (Manual) Lymphocytes % (Manual) Monocytes % (Manual) Seg Neutrophils # Seg Neutrophils # Man Lymphocytes # (Manual) Monocytes # (Manual) Eosinophils # (Manual) Basophils # (Manual) PT INR APTT ABG pH ABG pO2 ABG HCO3 ABG O2 Saturation ABG Base Excess ABG Hemoglobin Oxyhemoglobin Sodium Potassium Chloride Carbon Dioxide BUN Creatinine Glucose POC Glucose 145 H 127 H Lactic Acid Calcium Ionized Calcium Phosphorus Magnesium Total Bilirubin AST ALT Alkaline Phosphatase Ammonia Total Creatine Kinase CK-MB (CK-2) CK-MB (CK-2) Rel Index Total Protein Albumin Urine WBC (Auto) Vancomycin Trough Salicylates Acetaminophen Plasma/Serum Alcohol Crossmatch See Detail 12/22/19 12/22/19 12/22/19 04:43 05:56 08:40 WBC RBC Hgb Hct MCH RDW Plt Count Lymph % (Auto) [place] % (Auto) [place] # Baso # Seg Neutrophils % Seg Neuts % (Manual) Lymphocytes % (Manual) Monocytes % (Manual) Seg Neutrophils # Seg Neutrophils # Man Lymphocytes # (Manual) Monocytes # (Manual) Eosinophils # (Manual) Basophils # (Manual) PT INR APTT ABG pH ABG pO2 75.6 L ABG HCO3 ABG O2 Saturation ABG Base Excess -2.6 L ABG Hemoglobin 6.8 L Oxyhemoglobin 94.6 L Sodium Potassium Chloride Carbon Dioxide 17 L BUN 60 H Creatinine 1.4 H Glucose 126 H POC Glucose 153 H Lactic Acid Calcium Ionized Calcium Phosphorus Magnesium Total Bilirubin AST ALT Alkaline Phosphatase Ammonia Total Creatine Kinase CK-MB (CK-2) CK-MB (CK-2) Rel Index Total Protein Albumin Urine WBC (Auto) Vancomycin Trough Salicylates Acetaminophen Plasma/Serum Alcohol Crossmatch 12/22/19 12/22/19 12/23/19 12:07 17:49 04:30 WBC 22.4 H RBC 2.68 L Hgb 7.6 L Hct 22.9 L MCH RDW 19.9 H Plt Count 998 H Lymph % (Auto) [place] % (Auto) [place] # Baso # Seg Neutrophils % Seg Neuts % (Manual) 88.0 H Lymphocytes % (Manual) 2.0 L Monocytes % (Manual) 9.0 H Seg Neutrophils # Seg Neutrophils # Man 19.7 H Lymphocytes # (Manual) 0.4 L Monocytes # (Manual) 2.0 H Eosinophils # (Manual) Basophils # (Manual) PT INR APTT ABG pH ABG pO2 ABG HCO3 ABG O2 Saturation ABG Base Excess ABG Hemoglobin Oxyhemoglobin Sodium Potassium Chloride Carbon Dioxide BUN Creatinine Glucose POC Glucose 140 H 116 H Lactic Acid Calcium Ionized Calcium Phosphorus Magnesium Total Bilirubin AST ALT Alkaline Phosphatase Ammonia Total Creatine Kinase CK-MB (CK-2) CK-MB (CK-2) Rel Index Total Protein Albumin Urine WBC (Auto) Vancomycin Trough Salicylates Acetaminophen Plasma/Serum Alcohol Crossmatch 12/23/19 12/23/19 12/23/19 04:30 12:00 18:06 WBC RBC Hgb Hct MCH RDW Plt Count Lymph % (Auto) [place] % (Auto) [place] # Baso # Seg Neutrophils % Seg Neuts % (Manual) Lymphocytes % (Manual) Monocytes % (Manual) Seg Neutrophils # Seg Neutrophils # Man Lymphocytes # (Manual) Monocytes # (Manual) Eosinophils # (Manual) Basophils # (Manual) PT INR APTT ABG pH ABG pO2 ABG HCO3 ABG O2 Saturation ABG Base Excess ABG Hemoglobin Oxyhemoglobin Sodium Potassium 5.2 H Chloride Carbon Dioxide 21 L BUN 69 H Creatinine 1.5 H Glucose 117 H POC Glucose 128 H 138 H Lactic Acid Calcium Ionized Calcium Phosphorus Magnesium Total Bilirubin AST ALT Alkaline Phosphatase Ammonia Total Creatine Kinase CK-MB (CK-2) CK-MB (CK-2) Rel Index Total Protein Albumin Urine WBC (Auto) Vancomycin Trough Salicylates Acetaminophen Plasma/Serum Alcohol Crossmatch 12/23/19 12/24/19 12/24/19 23:46 04:31 05:08 WBC RBC Hgb Hct MCH RDW Plt Count Lymph % (Auto) [place] % (Auto) [place] # Baso # Seg Neutrophils % Seg Neuts % (Manual) Lymphocytes % (Manual) Monocytes % (Manual) Seg Neutrophils # Seg Neutrophils # Man Lymphocytes # (Manual) Monocytes # (Manual) Eosinophils # (Manual) Basophils # (Manual) PT INR APTT ABG pH ABG pO2 ABG HCO3 ABG O2 Saturation ABG Base Excess ABG Hemoglobin Oxyhemoglobin Sodium Potassium 5.3 H Chloride 107.6 H Carbon Dioxide 20 L BUN 72 H Creatinine 1.6 H Glucose 120 H POC Glucose 120 H 140 H Lactic Acid Calcium Ionized Calcium Phosphorus Magnesium Total Bilirubin AST ALT Alkaline Phosphatase Ammonia Total Creatine Kinase CK-MB (CK-2) CK-MB (CK-2) Rel Index Total Protein Albumin Urine WBC (Auto) Vancomycin Trough Salicylates Acetaminophen Plasma/Serum Alcohol Crossmatch 12/24/19 12/24/19 12/25/19 11:58 17:49 03:47 WBC 36.2 H RBC 2.92 L Hgb 8.4 L Hct 26.1 L MCH RDW 20.2 H Plt Count 942 H Lymph % (Auto) [place] % (Auto) [place] # Baso # Seg Neutrophils % Seg Neuts % (Manual) 97.5 H Lymphocytes % (Manual) 1.0 L Monocytes % (Manual) Seg Neutrophils # Seg Neutrophils # Man 35.3 H Lymphocytes # (Manual) 0.4 L Monocytes # (Manual) Eosinophils # (Manual) Basophils # (Manual) PT INR APTT ABG pH ABG pO2 ABG HCO3 ABG O2 Saturation ABG Base Excess ABG Hemoglobin Oxyhemoglobin Sodium Potassium Chloride Carbon Dioxide BUN Creatinine Glucose POC Glucose 146 H 131 H Lactic Acid Calcium Ionized Calcium Phosphorus Magnesium Total Bilirubin AST ALT Alkaline Phosphatase Ammonia Total Creatine Kinase CK-MB (CK-2) CK-MB (CK-2) Rel Index Total Protein Albumin Urine WBC (Auto) Vancomycin Trough Salicylates Acetaminophen Plasma/Serum Alcohol Crossmatch 12/25/19 12/25/19 12/25/19 03:47 05:30 12:23 WBC RBC Hgb Hct MCH RDW Plt Count Lymph % (Auto) [place] % (Auto) [place] # Baso # Seg Neutrophils % Seg Neuts % (Manual) Lymphocytes % (Manual) Monocytes % (Manual) Seg Neutrophils # Seg Neutrophils # Man Lymphocytes # (Manual) Monocytes # (Manual) Eosinophils # (Manual) Basophils # (Manual) PT INR APTT ABG pH ABG pO2 ABG HCO3 ABG O2 Saturation ABG Base Excess ABG Hemoglobin Oxyhemoglobin Sodium Potassium Chloride Carbon Dioxide 15 L BUN 70 H Creatinine 1.7 H Glucose 153 H POC Glucose 169 H 135 H Lactic Acid Calcium Ionized Calcium Phosphorus Magnesium Total Bilirubin AST ALT Alkaline Phosphatase Ammonia Total Creatine Kinase CK-MB (CK-2) CK-MB (CK-2) Rel Index Total Protein Albumin Urine WBC (Auto) Vancomycin Trough Salicylates Acetaminophen Plasma/Serum Alcohol Crossmatch 12/25/19 12/25/19 12/26/19 17:37 23:29 09:47 WBC 22.1 H RBC 2.83 L Hgb 7.9 L Hct 25.5 L MCH RDW 20.0 H Plt Count 894 H Lymph % (Auto) [place] % (Auto) [place] # Baso # Seg Neutrophils % Seg Neuts % (Manual) Lymphocytes % (Manual) Monocytes % (Manual) Seg Neutrophils # Seg Neutrophils # Man Lymphocytes # (Manual) Monocytes # (Manual) Eosinophils # (Manual) Basophils # (Manual) PT INR APTT ABG pH ABG pO2 ABG HCO3 ABG O2 Saturation ABG Base Excess ABG Hemoglobin Oxyhemoglobin Sodium Potassium Chloride Carbon Dioxide BUN Creatinine Glucose POC Glucose 120 H 140 H Lactic Acid Calcium Ionized Calcium Phosphorus Magnesium Total Bilirubin AST ALT Alkaline Phosphatase Ammonia Total Creatine Kinase CK-MB (CK-2) CK-MB (CK-2) Rel Index Total Protein Albumin Urine WBC (Auto) Vancomycin Trough Salicylates Acetaminophen Plasma/Serum Alcohol Crossmatch 12/26/19 12/26/19 12/26/19 09:47 11:46 17:52 WBC RBC Hgb Hct MCH RDW Plt Count Lymph % (Auto) [place] % (Auto) [place] # Baso # Seg Neutrophils % Seg Neuts % (Manual) Lymphocytes % (Manual) Monocytes % (Manual) Seg Neutrophils # Seg Neutrophils # Man Lymphocytes # (Manual) Monocytes # (Manual) Eosinophils # (Manual) Basophils # (Manual) PT INR APTT ABG pH ABG pO2 ABG HCO3 ABG O2 Saturation ABG Base Excess ABG Hemoglobin Oxyhemoglobin Sodium Potassium Chloride Carbon Dioxide 18 L BUN 65 H Creatinine 1.4 H Glucose 132 H POC Glucose 110 H 145 H Lactic Acid Calcium Ionized Calcium Phosphorus Magnesium Total Bilirubin AST ALT Alkaline Phosphatase Ammonia Total Creatine Kinase CK-MB (CK-2) CK-MB (CK-2) Rel Index Total Protein Albumin Urine WBC (Auto) Vancomycin Trough Salicylates Acetaminophen Plasma/Serum Alcohol Crossmatch 12/27/19 12/27/19 12/27/19 00:01 03:42 03:42 WBC 18.0 H RBC 2.86 L Hgb 8.0 L Hct 25.2 L MCH RDW 19.2 H Plt Count 873 H Lymph % (Auto) 8.4 L [place] % (Auto) 7.5 H [place] # 1.4 H Baso # 0.2 H Seg Neutrophils % 82.2 H Seg Neuts % (Manual) Lymphocytes % (Manual) Monocytes % (Manual) Seg Neutrophils # 14.8 H Seg Neutrophils # Man Lymphocytes # (Manual) Monocytes # (Manual) Eosinophils # (Manual) Basophils # (Manual) PT INR APTT ABG pH ABG pO2 ABG HCO3 ABG O2 Saturation ABG Base Excess ABG Hemoglobin Oxyhemoglobin Sodium Potassium Chloride Carbon Dioxide BUN 73 H Creatinine 1.4 H Glucose 119 H POC Glucose 124 H Lactic Acid Calcium Ionized Calcium Phosphorus Magnesium Total Bilirubin AST ALT Alkaline Phosphatase Ammonia Total Creatine Kinase CK-MB (CK-2) CK-MB (CK-2) Rel Index Total Protein Albumin Urine WBC (Auto) Vancomycin Trough Salicylates Acetaminophen Plasma/Serum Alcohol Crossmatch 12/27/19 12/27/19 12/27/19 05:45 11:45 17:29 WBC RBC Hgb Hct MCH RDW Plt Count Lymph % (Auto) [place] % (Auto) [place] # Baso # Seg Neutrophils % Seg Neuts % (Manual) Lymphocytes % (Manual) Monocytes % (Manual) Seg Neutrophils # Seg Neutrophils # Man Lymphocytes # (Manual) Monocytes # (Manual) Eosinophils # (Manual) Basophils # (Manual) PT INR APTT ABG pH ABG pO2 ABG HCO3 ABG O2 Saturation ABG Base Excess ABG Hemoglobin Oxyhemoglobin Sodium Potassium Chloride Carbon Dioxide BUN Creatinine Glucose POC Glucose 131 H 123 H 134 H Lactic Acid Calcium Ionized Calcium Phosphorus Magnesium Total Bilirubin AST ALT Alkaline Phosphatase Ammonia Total Creatine Kinase CK-MB (CK-2) CK-MB (CK-2) Rel Index Total Protein Albumin Urine WBC (Auto) Vancomycin Trough Salicylates Acetaminophen Plasma/Serum Alcohol Crossmatch 12/28/19 12/28/19 12/28/19 00:12 05:14 11:53 WBC RBC Hgb Hct MCH RDW Plt Count Lymph % (Auto) [place] % (Auto) [place] # Baso # Seg Neutrophils % Seg Neuts % (Manual) Lymphocytes % (Manual) Monocytes % (Manual) Seg Neutrophils # Seg Neutrophils # Man Lymphocytes # (Manual) Monocytes # (Manual) Eosinophils # (Manual) Basophils # (Manual) PT INR APTT ABG pH ABG pO2 ABG HCO3 ABG O2 Saturation ABG Base Excess ABG Hemoglobin Oxyhemoglobin Sodium Potassium Chloride Carbon Dioxide BUN Creatinine Glucose POC Glucose 138 H 130 H 146 H Lactic Acid Calcium Ionized Calcium Phosphorus Magnesium Total Bilirubin AST ALT Alkaline Phosphatase Ammonia Total Creatine Kinase CK-MB (CK-2) CK-MB (CK-2) Rel Index Total Protein Albumin Urine WBC (Auto) Vancomycin Trough Salicylates Acetaminophen Plasma/Serum Alcohol Crossmatch 12/28/19 12/29/19 12/29/19 17:39 00:01 18:11 WBC RBC Hgb Hct MCH RDW Plt Count Lymph % (Auto) [place] % (Auto) [place] # Baso # Seg Neutrophils % Seg Neuts % (Manual) Lymphocytes % (Manual) Monocytes % (Manual) Seg Neutrophils # Seg Neutrophils # Man Lymphocytes # (Manual) Monocytes # (Manual) Eosinophils # (Manual) Basophils # (Manual) PT INR APTT ABG pH ABG pO2 ABG HCO3 ABG O2 Saturation ABG Base Excess ABG Hemoglobin Oxyhemoglobin Sodium Potassium Chloride Carbon Dioxide BUN Creatinine Glucose POC Glucose 117 H 139 H 130 H Lactic Acid Calcium Ionized Calcium Phosphorus Magnesium Total Bilirubin AST ALT Alkaline Phosphatase Ammonia Total Creatine Kinase CK-MB (CK-2) CK-MB (CK-2) Rel Index Total Protein Albumin Urine WBC (Auto) Vancomycin Trough Salicylates Acetaminophen Plasma/Serum Alcohol Crossmatch 12/29/19 12/30/19 12/30/19 23:09 00:02 01:06 WBC 16.7 H RBC 2.91 L Hgb 8.2 L Hct 25.4 L MCH RDW 18.7 H Plt Count 708 H Lymph % (Auto) 9.4 L [place] % (Auto) [place] # 0.9 H Baso # Seg Neutrophils % 83.5 H Seg Neuts % (Manual) Lymphocytes % (Manual) Monocytes % (Manual) Seg Neutrophils # 14.0 H Seg Neutrophils # Man Lymphocytes # (Manual) Monocytes # (Manual) Eosinophils # (Manual) Basophils # (Manual) PT INR APTT ABG pH ABG pO2 ABG HCO3 ABG O2 Saturation ABG Base Excess ABG Hemoglobin Oxyhemoglobin Sodium Potassium Chloride Carbon Dioxide BUN Creatinine Glucose POC Glucose 120 H 114 H Lactic Acid Calcium Ionized Calcium Phosphorus Magnesium Total Bilirubin AST ALT Alkaline Phosphatase Ammonia Total Creatine Kinase CK-MB (CK-2) CK-MB (CK-2) Rel Index Total Protein Albumin Urine WBC (Auto) Vancomycin Trough Salicylates Acetaminophen Plasma/Serum Alcohol Crossmatch 12/30/19 12/30/19 12/30/19 01:06 04:23 05:18 WBC RBC Hgb Hct MCH RDW Plt Count Lymph % (Auto) [place] % (Auto) [place] # Baso # Seg Neutrophils % Seg Neuts % (Manual) Lymphocytes % (Manual) Monocytes % (Manual) Seg Neutrophils # Seg Neutrophils # Man Lymphocytes # (Manual) Monocytes # (Manual) Eosinophils # (Manual) Basophils # (Manual) PT INR APTT ABG pH ABG pO2 ABG HCO3 ABG O2 Saturation ABG Base Excess ABG Hemoglobin 8.3 L Oxyhemoglobin Sodium Potassium Chloride Carbon Dioxide BUN 70 H Creatinine Glucose 122 H POC Glucose 130 H Lactic Acid Calcium Ionized Calcium Phosphorus Magnesium Total Bilirubin AST ALT Alkaline Phosphatase Ammonia Total Creatine Kinase CK-MB (CK-2) CK-MB (CK-2) Rel Index Total Protein Albumin Urine WBC (Auto) Vancomycin Trough Salicylates Acetaminophen Plasma/Serum Alcohol Crossmatch 12/30/19 12/30/19 12/30/19 05:40 12:17 17:43 WBC RBC Hgb Hct MCH RDW Plt Count Lymph % (Auto) [place] % (Auto) [place] # Baso # Seg Neutrophils % Seg Neuts % (Manual) Lymphocytes % (Manual) Monocytes % (Manual) Seg Neutrophils # Seg Neutrophils # Man Lymphocytes # (Manual) Monocytes # (Manual) Eosinophils # (Manual) Basophils # (Manual) PT INR APTT ABG pH ABG pO2 ABG HCO3 ABG O2 Saturation ABG Base Excess ABG Hemoglobin Oxyhemoglobin Sodium Potassium Chloride Carbon Dioxide BUN Creatinine Glucose POC Glucose 135 H 132 H 118 H Lactic Acid Calcium Ionized Calcium Phosphorus Magnesium Total Bilirubin AST ALT Alkaline Phosphatase Ammonia Total Creatine Kinase CK-MB (CK-2) CK-MB (CK-2) Rel Index Total Protein Albumin Urine WBC (Auto) Vancomycin Trough Salicylates Acetaminophen Plasma/Serum Alcohol Crossmatch 12/30/19 12/31/19 12/31/19 23:29 05:19 17:50 WBC RBC Hgb Hct MCH RDW Plt Count Lymph % (Auto) [place] % (Auto) [place] # Baso # Seg Neutrophils % Seg Neuts % (Manual) Lymphocytes % (Manual) Monocytes % (Manual) Seg Neutrophils # Seg Neutrophils # Man Lymphocytes # (Manual) Monocytes # (Manual) Eosinophils # (Manual) Basophils # (Manual) PT INR APTT ABG pH ABG pO2 ABG HCO3 ABG O2 Saturation ABG Base Excess ABG Hemoglobin Oxyhemoglobin Sodium Potassium Chloride Carbon Dioxide BUN Creatinine Glucose POC Glucose 114 H 109 H 116 H Lactic Acid Calcium Ionized Calcium Phosphorus Magnesium Total Bilirubin AST ALT Alkaline Phosphatase Ammonia Total Creatine Kinase CK-MB (CK-2) CK-MB (CK-2) Rel Index Total Protein Albumin Urine WBC (Auto) Vancomycin Trough Salicylates Acetaminophen Plasma/Serum Alcohol Crossmatch 01/01/20 01/01/20 01/01/20 00:10 05:19 12:02 WBC RBC Hgb Hct MCH RDW Plt Count Lymph % (Auto) [place] % (Auto) [place] # Baso # Seg Neutrophils % Seg Neuts % (Manual) Lymphocytes % (Manual) Monocytes % (Manual) Seg Neutrophils # Seg Neutrophils # Man Lymphocytes # (Manual) Monocytes # (Manual) Eosinophils # (Manual) Basophils # (Manual) PT INR APTT ABG pH ABG pO2 ABG HCO3 ABG O2 Saturation ABG Base Excess ABG Hemoglobin Oxyhemoglobin Sodium Potassium Chloride Carbon Dioxide BUN Creatinine Glucose POC Glucose 131 H 122 H 136 H Lactic Acid Calcium Ionized Calcium Phosphorus Magnesium Total Bilirubin AST ALT Alkaline Phosphatase Ammonia Total Creatine Kinase CK-MB (CK-2) CK-MB (CK-2) Rel Index Total Protein Albumin Urine WBC (Auto) Vancomycin Trough Salicylates Acetaminophen Plasma/Serum Alcohol Crossmatch 01/02/20 01/02/20 01/02/20 00:24 05:36 11:41 WBC RBC Hgb Hct MCH RDW Plt Count Lymph % (Auto) [place] % (Auto) [place] # Baso # Seg Neutrophils % Seg Neuts % (Manual) Lymphocytes % (Manual) Monocytes % (Manual) Seg Neutrophils # Seg Neutrophils # Man Lymphocytes # (Manual) Monocytes # (Manual) Eosinophils # (Manual) Basophils # (Manual) PT INR APTT ABG pH ABG pO2 ABG HCO3 ABG O2 Saturation ABG Base Excess ABG Hemoglobin Oxyhemoglobin Sodium Potassium Chloride Carbon Dioxide BUN Creatinine Glucose POC Glucose 119 H 109 H 125 H Lactic Acid Calcium Ionized Calcium Phosphorus Magnesium Total Bilirubin AST ALT Alkaline Phosphatase Ammonia Total Creatine Kinase CK-MB (CK-2) CK-MB (CK-2) Rel Index Total Protein Albumin Urine WBC (Auto) Vancomycin Trough Salicylates Acetaminophen Plasma/Serum Alcohol Crossmatch 01/02/20 01/03/20 01/03/20 17:49 05:29 12:13 WBC RBC Hgb Hct MCH RDW Plt Count Lymph % (Auto) [place] % (Auto) [place] # Baso # Seg Neutrophils % Seg Neuts % (Manual) Lymphocytes % (Manual) Monocytes % (Manual) Seg Neutrophils # Seg Neutrophils # Man Lymphocytes # (Manual) Monocytes # (Manual) Eosinophils # (Manual) Basophils # (Manual) PT INR APTT ABG pH ABG pO2 ABG HCO3 ABG O2 Saturation ABG Base Excess ABG Hemoglobin Oxyhemoglobin Sodium Potassium Chloride Carbon Dioxide BUN Creatinine Glucose POC Glucose 130 H 132 H 113 H Lactic Acid Calcium Ionized Calcium Phosphorus Magnesium Total Bilirubin AST ALT Alkaline Phosphatase Ammonia Total Creatine Kinase CK-MB (CK-2) CK-MB (CK-2) Rel Index Total Protein Albumin Urine WBC (Auto) Vancomycin Trough Salicylates Acetaminophen Plasma/Serum Alcohol Crossmatch 01/03/20 01/04/20 01/04/20 17:32 00:19 05:26 WBC RBC Hgb Hct MCH RDW Plt Count Lymph % (Auto) [place] % (Auto) [place] # Baso # Seg Neutrophils % Seg Neuts % (Manual) Lymphocytes % (Manual) Monocytes % (Manual) Seg Neutrophils # Seg Neutrophils # Man Lymphocytes # (Manual) Monocytes # (Manual) Eosinophils # (Manual) Basophils # (Manual) PT INR APTT ABG pH ABG pO2 ABG HCO3 ABG O2 Saturation ABG Base Excess ABG Hemoglobin Oxyhemoglobin Sodium Potassium Chloride Carbon Dioxide BUN Creatinine Glucose POC Glucose 127 H 141 H 129 H Lactic Acid Calcium Ionized Calcium Phosphorus Magnesium Total Bilirubin AST ALT Alkaline Phosphatase Ammonia Total Creatine Kinase CK-MB (CK-2) CK-MB (CK-2) Rel Index Total Protein Albumin Urine WBC (Auto) Vancomycin Trough Salicylates Acetaminophen Plasma/Serum Alcohol Crossmatch 01/04/20 01/04/20 01/05/20 11:39 17:29 05:22 WBC RBC Hgb Hct MCH RDW Plt Count Lymph % (Auto) [place] % (Auto) [place] # Baso # Seg Neutrophils % Seg Neuts % (Manual) Lymphocytes % (Manual) Monocytes % (Manual) Seg Neutrophils # Seg Neutrophils # Man Lymphocytes # (Manual) Monocytes # (Manual) Eosinophils # (Manual) Basophils # (Manual) PT INR APTT ABG pH ABG pO2 ABG HCO3 ABG O2 Saturation ABG Base Excess ABG Hemoglobin Oxyhemoglobin Sodium Potassium Chloride Carbon Dioxide BUN Creatinine Glucose POC Glucose 167 H 132 H 121 H Lactic Acid Calcium Ionized Calcium Phosphorus Magnesium Total Bilirubin AST ALT Alkaline Phosphatase Ammonia Total Creatine Kinase CK-MB (CK-2) CK-MB (CK-2) Rel Index Total Protein Albumin Urine WBC (Auto) Vancomycin Trough Salicylates Acetaminophen Plasma/Serum Alcohol Crossmatch 01/05/20 01/05/20 01/05/20 12:25 17:40 18:06 WBC RBC Hgb Hct MCH RDW Plt Count Lymph % (Auto) [place] % (Auto) [place] # Baso # Seg Neutrophils % Seg Neuts % (Manual) Lymphocytes % (Manual) Monocytes % (Manual) Seg Neutrophils # Seg Neutrophils # Man Lymphocytes # (Manual) Monocytes # (Manual) Eosinophils # (Manual) Basophils # (Manual) PT INR APTT ABG pH 7.472 H ABG pO2 99.2 H ABG HCO3 ABG O2 Saturation ABG Base Excess ABG Hemoglobin 7.8 L Oxyhemoglobin Sodium Potassium Chloride Carbon Dioxide BUN Creatinine Glucose POC Glucose 106 H 110 H Lactic Acid Calcium Ionized Calcium Phosphorus Magnesium Total Bilirubin AST ALT Alkaline Phosphatase Ammonia Total Creatine Kinase CK-MB (CK-2) CK-MB (CK-2) Rel Index Total Protein Albumin Urine WBC (Auto) Vancomycin Trough Salicylates Acetaminophen Plasma/Serum Alcohol Crossmatch 01/06/20 01/06/20 01/06/20 00:11 05:16 11:30 WBC RBC Hgb Hct MCH RDW Plt Count Lymph % (Auto) [place] % (Auto) [place] # Baso # Seg Neutrophils % Seg Neuts % (Manual) Lymphocytes % (Manual) Monocytes % (Manual) Seg Neutrophils # Seg Neutrophils # Man Lymphocytes # (Manual) Monocytes # (Manual) Eosinophils # (Manual) Basophils # (Manual) PT INR APTT ABG pH ABG pO2 ABG HCO3 ABG O2 Saturation ABG Base Excess ABG Hemoglobin Oxyhemoglobin Sodium Potassium Chloride Carbon Dioxide BUN Creatinine Glucose POC Glucose 108 H 124 H 125 H Lactic Acid Calcium Ionized Calcium Phosphorus Magnesium Total Bilirubin AST ALT Alkaline Phosphatase Ammonia Total Creatine Kinase CK-MB (CK-2) CK-MB (CK-2) Rel Index Total Protein Albumin Urine WBC (Auto) Vancomycin Trough Salicylates Acetaminophen Plasma/Serum Alcohol Crossmatch 01/06/20 01/06/20 01/07/20 17:53 23:51 04:12 WBC 16.5 H RBC 3.29 L Hgb 9.3 L Hct 28.1 L MCH RDW 18.2 H Plt Count 526 H Lymph % (Auto) 8.4 L [place] % (Auto) [place] # 1.0 H Baso # Seg Neutrophils % 84.4 H Seg Neuts % (Manual) Lymphocytes % (Manual) Monocytes % (Manual) Seg Neutrophils # 13.9 H Seg Neutrophils # Man Lymphocytes # (Manual) Monocytes # (Manual) Eosinophils # (Manual) Basophils # (Manual) PT INR APTT ABG pH ABG pO2 ABG HCO3 ABG O2 Saturation ABG Base Excess ABG Hemoglobin Oxyhemoglobin Sodium Potassium Chloride Carbon Dioxide BUN Creatinine Glucose POC Glucose 166 H 128 H Lactic Acid Calcium Ionized Calcium Phosphorus Magnesium Total Bilirubin AST ALT Alkaline Phosphatase Ammonia Total Creatine Kinase CK-MB (CK-2) CK-MB (CK-2) Rel Index Total Protein Albumin Urine WBC (Auto) Vancomycin Trough Salicylates Acetaminophen Plasma/Serum Alcohol Crossmatch 01/07/20 01/07/20 01/07/20 04:12 04:45 11:51 WBC RBC Hgb Hct MCH RDW Plt Count Lymph % (Auto) [place] % (Auto) [place] # Baso # Seg Neutrophils % Seg Neuts % (Manual) Lymphocytes % (Manual) Monocytes % (Manual) Seg Neutrophils # Seg Neutrophils # Man Lymphocytes # (Manual) Monocytes # (Manual) Eosinophils # (Manual) Basophils # (Manual) PT INR APTT ABG pH ABG pO2 ABG HCO3 ABG O2 Saturation ABG Base Excess ABG Hemoglobin Oxyhemoglobin Sodium 136 L Potassium Chloride Carbon Dioxide 21 L BUN 44 H Creatinine 0.6 L Glucose 124 H POC Glucose 134 H 138 H Lactic Acid Calcium Ionized Calcium Phosphorus Magnesium Total Bilirubin AST ALT Alkaline Phosphatase Ammonia Total Creatine Kinase CK-MB (CK-2) CK-MB (CK-2) Rel Index Total Protein Albumin Urine WBC (Auto) Vancomycin Trough Salicylates Acetaminophen Plasma/Serum Alcohol Crossmatch 01/07/20 01/08/20 01/08/20 17:36 00:33 05:29 WBC RBC Hgb Hct MCH RDW Plt Count Lymph % (Auto) [place] % (Auto) [place] # Baso # Seg Neutrophils % Seg Neuts % (Manual) Lymphocytes % (Manual) Monocytes % (Manual) Seg Neutrophils # Seg Neutrophils # Man Lymphocytes # (Manual) Monocytes # (Manual) Eosinophils # (Manual) Basophils # (Manual) PT INR APTT ABG pH ABG pO2 ABG HCO3 ABG O2 Saturation ABG Base Excess ABG Hemoglobin Oxyhemoglobin Sodium Potassium Chloride Carbon Dioxide BUN Creatinine Glucose POC Glucose 128 H 119 H 124 H Lactic Acid Calcium Ionized Calcium Phosphorus Magnesium Total Bilirubin AST ALT Alkaline Phosphatase Ammonia Total Creatine Kinase CK-MB (CK-2) CK-MB (CK-2) Rel Index Total Protein Albumin Urine WBC (Auto) Vancomycin Trough Salicylates Acetaminophen Plasma/Serum Alcohol Crossmatch 01/08/20 01/08/20 01/08/20 12:51 20:25 23:22 WBC RBC Hgb Hct MCH RDW Plt Count Lymph % (Auto) [place] % (Auto) [place] # Baso # Seg Neutrophils % Seg Neuts % (Manual) Lymphocytes % (Manual) Monocytes % (Manual) Seg Neutrophils # Seg Neutrophils # Man Lymphocytes # (Manual) Monocytes # (Manual) Eosinophils # (Manual) Basophils # (Manual) PT INR APTT ABG pH ABG pO2 132.2 H ABG HCO3 ABG O2 Saturation ABG Base Excess ABG Hemoglobin Oxyhemoglobin Sodium Potassium Chloride Carbon Dioxide BUN Creatinine Glucose POC Glucose 128 H 127 H Lactic Acid Calcium Ionized Calcium Phosphorus Magnesium Total Bilirubin AST ALT Alkaline Phosphatase Ammonia Total Creatine Kinase CK-MB (CK-2) CK-MB (CK-2) Rel Index Total Protein Albumin Urine WBC (Auto) Vancomycin Trough Salicylates Acetaminophen Plasma/Serum Alcohol Crossmatch 01/09/20 01/09/20 01/09/20 05:48 08:51 11:29 WBC RBC Hgb Hct MCH RDW Plt Count Lymph % (Auto) [place] % (Auto) [place] # Baso # Seg Neutrophils % Seg Neuts % (Manual) Lymphocytes % (Manual) Monocytes % (Manual) Seg Neutrophils # Seg Neutrophils # Man Lymphocytes # (Manual) Monocytes # (Manual) Eosinophils # (Manual) Basophils # (Manual) PT INR APTT ABG pH ABG pO2 94.3 H ABG HCO3 ABG O2 Saturation ABG Base Excess ABG Hemoglobin 9.5 L Oxyhemoglobin Sodium Potassium Chloride Carbon Dioxide BUN Creatinine Glucose POC Glucose 120 H 112 H Lactic Acid Calcium Ionized Calcium Phosphorus Magnesium Total Bilirubin AST ALT Alkaline Phosphatase Ammonia Total Creatine Kinase CK-MB (CK-2) CK-MB (CK-2) Rel Index Total Protein Albumin Urine WBC (Auto) Vancomycin Trough Salicylates Acetaminophen Plasma/Serum Alcohol Crossmatch 01/09/20 01/10/20 01/10/20 17:57 05:17 12:28 WBC RBC Hgb Hct MCH RDW Plt Count Lymph % (Auto) [place] % (Auto) [place] # Baso # Seg Neutrophils % Seg Neuts % (Manual) Lymphocytes % (Manual) Monocytes % (Manual) Seg Neutrophils # Seg Neutrophils # Man Lymphocytes # (Manual) Monocytes # (Manual) Eosinophils # (Manual) Basophils # (Manual) PT INR APTT ABG pH ABG pO2 ABG HCO3 ABG O2 Saturation ABG Base Excess ABG Hemoglobin Oxyhemoglobin Sodium Potassium Chloride Carbon Dioxide BUN Creatinine Glucose POC Glucose 122 H 115 H 116 H Lactic Acid Calcium Ionized Calcium Phosphorus Magnesium Total Bilirubin AST ALT Alkaline Phosphatase Ammonia Total Creatine Kinase CK-MB (CK-2) CK-MB (CK-2) Rel Index Total Protein Albumin Urine WBC (Auto) Vancomycin Trough Salicylates Acetaminophen Plasma/Serum Alcohol Crossmatch 01/10/20 01/10/20 01/11/20 18:25 23:47 06:05 WBC RBC Hgb Hct MCH RDW Plt Count Lymph % (Auto) [place] % (Auto) [place] # Baso # Seg Neutrophils % Seg Neuts % (Manual) Lymphocytes % (Manual) Monocytes % (Manual) Seg Neutrophils # Seg Neutrophils # Man Lymphocytes # (Manual) Monocytes # (Manual) Eosinophils # (Manual) Basophils # (Manual) PT INR APTT ABG pH ABG pO2 ABG HCO3 ABG O2 Saturation ABG Base Excess ABG Hemoglobin Oxyhemoglobin Sodium Potassium Chloride Carbon Dioxide BUN Creatinine Glucose POC Glucose 123 H 115 H 151 H Lactic Acid Calcium Ionized Calcium Phosphorus Magnesium Total Bilirubin AST ALT Alkaline Phosphatase Ammonia Total Creatine Kinase CK-MB (CK-2) CK-MB (CK-2) Rel Index Total Protein Albumin Urine WBC (Auto) Vancomycin Trough Salicylates Acetaminophen Plasma/Serum Alcohol Crossmatch 01/11/20 01/11/20 01/11/20 07:00 07:00 12:27 WBC 11.8 H RBC 3.40 L Hgb 9.4 L Hct 29.3 L MCH RDW 18.1 H Plt Count 549 H Lymph % (Auto) [place] % (Auto) 9.1 H [place] # 1.1 H Baso # Seg Neutrophils % 73.3 H Seg Neuts % (Manual) Lymphocytes % (Manual) Monocytes % (Manual) Seg Neutrophils # 8.7 H Seg Neutrophils # Man Lymphocytes # (Manual) Monocytes # (Manual) Eosinophils # (Manual) Basophils # (Manual) PT INR APTT ABG pH ABG pO2 ABG HCO3 ABG O2 Saturation ABG Base Excess ABG Hemoglobin Oxyhemoglobin Sodium 134 L Potassium Chloride 97.7 L Carbon Dioxide 21 L BUN 38 H Creatinine 0.5 L Glucose 168 H POC Glucose 117 H Lactic Acid Calcium 10.5 H Ionized Calcium Phosphorus Magnesium Total Bilirubin AST ALT Alkaline Phosphatase Ammonia Total Creatine Kinase CK-MB (CK-2) CK-MB (CK-2) Rel Index Total Protein Albumin Urine WBC (Auto) Vancomycin Trough Salicylates Acetaminophen Plasma/Serum Alcohol Crossmatch 01/11/20 01/12/20 01/12/20 18:19 00:53 05:24 WBC RBC Hgb Hct MCH RDW Plt Count Lymph % (Auto) [place] % (Auto) [place] # Baso # Seg Neutrophils % Seg Neuts % (Manual) Lymphocytes % (Manual) Monocytes % (Manual) Seg Neutrophils # Seg Neutrophils # Man Lymphocytes # (Manual) Monocytes # (Manual) Eosinophils # (Manual) Basophils # (Manual) PT INR APTT ABG pH ABG pO2 ABG HCO3 ABG O2 Saturation ABG Base Excess ABG Hemoglobin Oxyhemoglobin Sodium Potassium Chloride Carbon Dioxide BUN Creatinine Glucose POC Glucose 126 H 126 H 128 H Lactic Acid Calcium Ionized Calcium Phosphorus Magnesium Total Bilirubin AST ALT Alkaline Phosphatase Ammonia Total Creatine Kinase CK-MB (CK-2) CK-MB (CK-2) Rel Index Total Protein Albumin Urine WBC (Auto) Vancomycin Trough Salicylates Acetaminophen Plasma/Serum Alcohol Crossmatch 01/12/20 01/12/20 01/13/20 13:39 18:02 00:27 WBC RBC Hgb Hct MCH RDW Plt Count Lymph % (Auto) [place] % (Auto) [place] # Baso # Seg Neutrophils % Seg Neuts % (Manual) Lymphocytes % (Manual) Monocytes % (Manual) Seg Neutrophils # Seg Neutrophils # Man Lymphocytes # (Manual) Monocytes # (Manual) Eosinophils # (Manual) Basophils # (Manual) PT INR APTT ABG pH ABG pO2 ABG HCO3 ABG O2 Saturation ABG Base Excess ABG Hemoglobin Oxyhemoglobin Sodium Potassium Chloride Carbon Dioxide BUN Creatinine Glucose POC Glucose 146 H 125 H 131 H Lactic Acid Calcium Ionized Calcium Phosphorus Magnesium Total Bilirubin AST ALT Alkaline Phosphatase Ammonia Total Creatine Kinase CK-MB (CK-2) CK-MB (CK-2) Rel Index Total Protein Albumin Urine WBC (Auto) Vancomycin Trough Salicylates Acetaminophen Plasma/Serum Alcohol Crossmatch 01/13/20 01/13/20 01/13/20 05:44 11:54 17:18 WBC RBC Hgb Hct MCH RDW Plt Count Lymph % (Auto) [place] % (Auto) [place] # Baso # Seg Neutrophils % Seg Neuts % (Manual) Lymphocytes % (Manual) Monocytes % (Manual) Seg Neutrophils # Seg Neutrophils # Man Lymphocytes # (Manual) Monocytes # (Manual) Eosinophils # (Manual) Basophils # (Manual) PT INR APTT ABG pH ABG pO2 ABG HCO3 ABG O2 Saturation ABG Base Excess ABG Hemoglobin Oxyhemoglobin Sodium Potassium Chloride Carbon Dioxide BUN Creatinine Glucose POC Glucose 148 H 140 H 130 H Lactic Acid Calcium Ionized Calcium Phosphorus Magnesium Total Bilirubin AST ALT Alkaline Phosphatase Ammonia Total Creatine Kinase CK-MB (CK-2) CK-MB (CK-2) Rel Index Total Protein Albumin Urine WBC (Auto) Vancomycin Trough Salicylates Acetaminophen Plasma/Serum Alcohol Crossmatch 01/14/20 01/14/20 01/14/20 00:16 05:45 12:19 WBC RBC Hgb Hct MCH RDW Plt Count Lymph % (Auto) [place] % (Auto) [place] # Baso # Seg Neutrophils % Seg Neuts % (Manual) Lymphocytes % (Manual) Monocytes % (Manual) Seg Neutrophils # Seg Neutrophils # Man Lymphocytes # (Manual) Monocytes # (Manual) Eosinophils # (Manual) Basophils # (Manual) PT INR APTT ABG pH ABG pO2 ABG HCO3 ABG O2 Saturation ABG Base Excess ABG Hemoglobin Oxyhemoglobin Sodium Potassium Chloride Carbon Dioxide BUN Creatinine Glucose POC Glucose 125 H 146 H 147 H Lactic Acid Calcium Ionized Calcium Phosphorus Magnesium Total Bilirubin AST ALT Alkaline Phosphatase Ammonia Total Creatine Kinase CK-MB (CK-2) CK-MB (CK-2) Rel Index Total Protein Albumin Urine WBC (Auto) Vancomycin Trough Salicylates Acetaminophen Plasma/Serum Alcohol Crossmatch 01/14/20 01/14/20 01/15/20 18:10 23:54 05:14 WBC RBC Hgb Hct MCH RDW Plt Count Lymph % (Auto) [place] % (Auto) [place] # Baso # Seg Neutrophils % Seg Neuts % (Manual) Lymphocytes % (Manual) Monocytes % (Manual) Seg Neutrophils # Seg Neutrophils # Man Lymphocytes # (Manual) Monocytes # (Manual) Eosinophils # (Manual) Basophils # (Manual) PT INR APTT ABG pH ABG pO2 ABG HCO3 ABG O2 Saturation ABG Base Excess ABG Hemoglobin Oxyhemoglobin Sodium Potassium Chloride Carbon Dioxide BUN Creatinine Glucose POC Glucose 136 H 109 H 111 H Lactic Acid Calcium Ionized Calcium Phosphorus Magnesium Total Bilirubin AST ALT Alkaline Phosphatase Ammonia Total Creatine Kinase CK-MB (CK-2) CK-MB (CK-2) Rel Index Total Protein Albumin Urine WBC (Auto) Vancomycin Trough Salicylates Acetaminophen Plasma/Serum Alcohol Crossmatch 01/15/20 01/15/20 01/16/20 12:34 23:25 05:06 WBC RBC Hgb Hct MCH RDW Plt Count Lymph % (Auto) [place] % (Auto) [place] # Baso # Seg Neutrophils % Seg Neuts % (Manual) Lymphocytes % (Manual) Monocytes % (Manual) Seg Neutrophils # Seg Neutrophils # Man Lymphocytes # (Manual) Monocytes # (Manual) Eosinophils # (Manual) Basophils # (Manual) PT INR APTT ABG pH ABG pO2 ABG HCO3 ABG O2 Saturation ABG Base Excess ABG Hemoglobin Oxyhemoglobin Sodium Potassium Chloride Carbon Dioxide BUN Creatinine Glucose POC Glucose 131 H 120 H 121 H Lactic Acid Calcium Ionized Calcium Phosphorus Magnesium Total Bilirubin AST ALT Alkaline Phosphatase Ammonia Total Creatine Kinase CK-MB (CK-2) CK-MB (CK-2) Rel Index Total Protein Albumin Urine WBC (Auto) Vancomycin Trough Salicylates Acetaminophen Plasma/Serum Alcohol Crossmatch 01/16/20 01/16/20 01/17/20 12:15 23:46 05:32 WBC 13.6 H RBC 3.27 L Hgb 9.3 L Hct 28.5 L MCH RDW 17.0 H Plt Count 490 H Lymph % (Auto) 13.1 L [place] % (Auto) [place] # 1.0 H Baso # Seg Neutrophils % 77.5 H Seg Neuts % (Manual) Lymphocytes % (Manual) Monocytes % (Manual) Seg Neutrophils # 10.5 H Seg Neutrophils # Man Lymphocytes # (Manual) Monocytes # (Manual) Eosinophils # (Manual) Basophils # (Manual) PT INR APTT ABG pH ABG pO2 ABG HCO3 ABG O2 Saturation ABG Base Excess ABG Hemoglobin Oxyhemoglobin Sodium Potassium Chloride Carbon Dioxide BUN Creatinine Glucose POC Glucose 152 H 107 H Lactic Acid Calcium Ionized Calcium Phosphorus Magnesium Total Bilirubin AST ALT Alkaline Phosphatase Ammonia Total Creatine Kinase CK-MB (CK-2) CK-MB (CK-2) Rel Index Total Protein Albumin Urine WBC (Auto) Vancomycin Trough Salicylates Acetaminophen Plasma/Serum Alcohol Crossmatch 01/17/20 01/17/20 01/17/20 06:47 12:16 17:21 WBC RBC Hgb Hct MCH RDW Plt Count Lymph % (Auto) [place] % (Auto) [place] # Baso # Seg Neutrophils % Seg Neuts % (Manual) Lymphocytes % (Manual) Monocytes % (Manual) Seg Neutrophils # Seg Neutrophils # Man Lymphocytes # (Manual) Monocytes # (Manual) Eosinophils # (Manual) Basophils # (Manual) PT INR APTT ABG pH ABG pO2 ABG HCO3 ABG O2 Saturation ABG Base Excess ABG Hemoglobin Oxyhemoglobin Sodium Potassium Chloride Carbon Dioxide BUN Creatinine Glucose POC Glucose 112 H 145 H 150 H Lactic Acid Calcium Ionized Calcium Phosphorus Magnesium Total Bilirubin AST ALT Alkaline Phosphatase Ammonia Total Creatine Kinase CK-MB (CK-2) CK-MB (CK-2) Rel Index Total Protein Albumin Urine WBC (Auto) Vancomycin Trough Salicylates Acetaminophen Plasma/Serum Alcohol Crossmatch 01/17/20 01/18/20 01/18/20 23:34 05:47 12:43 WBC RBC Hgb Hct MCH RDW Plt Count Lymph % (Auto) [place] % (Auto) [place] # Baso # Seg Neutrophils % Seg Neuts % (Manual) Lymphocytes % (Manual) Monocytes % (Manual) Seg Neutrophils # Seg Neutrophils # Man Lymphocytes # (Manual) Monocytes # (Manual) Eosinophils # (Manual) Basophils # (Manual) PT INR APTT ABG pH ABG pO2 ABG HCO3 ABG O2 Saturation ABG Base Excess ABG Hemoglobin Oxyhemoglobin Sodium Potassium Chloride Carbon Dioxide BUN Creatinine Glucose POC Glucose 160 H 130 H 124 H Lactic Acid Calcium Ionized Calcium Phosphorus Magnesium Total Bilirubin AST ALT Alkaline Phosphatase Ammonia Total Creatine Kinase CK-MB (CK-2) CK-MB (CK-2) Rel Index Total Protein Albumin Urine WBC (Auto) Vancomycin Trough Salicylates Acetaminophen Plasma/Serum Alcohol Crossmatch 01/18/20 01/19/20 01/19/20 18:26 00:14 06:24 WBC RBC Hgb Hct MCH RDW Plt Count Lymph % (Auto) [place] % (Auto) [place] # Baso # Seg Neutrophils % Seg Neuts % (Manual) Lymphocytes % (Manual) Monocytes % (Manual) Seg Neutrophils # Seg Neutrophils # Man Lymphocytes # (Manual) Monocytes # (Manual) Eosinophils # (Manual) Basophils # (Manual) PT INR APTT ABG pH ABG pO2 ABG HCO3 ABG O2 Saturation ABG Base Excess ABG Hemoglobin Oxyhemoglobin Sodium Potassium Chloride Carbon Dioxide BUN Creatinine Glucose POC Glucose 119 H 114 H 144 H Lactic Acid Calcium Ionized Calcium Phosphorus Magnesium Total Bilirubin AST ALT Alkaline Phosphatase Ammonia Total Creatine Kinase CK-MB (CK-2) CK-MB (CK-2) Rel Index Total Protein Albumin Urine WBC (Auto) Vancomycin Trough Salicylates Acetaminophen Plasma/Serum Alcohol Crossmatch 01/19/20 01/19/20 01/20/20 12:24 17:50 12:06 WBC RBC Hgb Hct MCH RDW Plt Count Lymph % (Auto) [place] % (Auto) [place] # Baso # Seg Neutrophils % Seg Neuts % (Manual) Lymphocytes % (Manual) Monocytes % (Manual) Seg Neutrophils # Seg Neutrophils # Man Lymphocytes # (Manual) Monocytes # (Manual) Eosinophils # (Manual) Basophils # (Manual) PT INR APTT ABG pH ABG pO2 ABG HCO3 ABG O2 Saturation ABG Base Excess ABG Hemoglobin Oxyhemoglobin Sodium Potassium Chloride Carbon Dioxide BUN Creatinine Glucose POC Glucose 132 H 144 H 135 H Lactic Acid Calcium Ionized Calcium Phosphorus Magnesium Total Bilirubin AST ALT Alkaline Phosphatase Ammonia Total Creatine Kinase CK-MB (CK-2) CK-MB (CK-2) Rel Index Total Protein Albumin Urine WBC (Auto) Vancomycin Trough Salicylates Acetaminophen Plasma/Serum Alcohol Crossmatch 01/21/20 01/21/20 01/21/20 05:46 13:02 23:49 WBC RBC Hgb Hct MCH RDW Plt Count Lymph % (Auto) [place] % (Auto) [place] # Baso # Seg Neutrophils % Seg Neuts % (Manual) Lymphocytes % (Manual) Monocytes % (Manual) Seg Neutrophils # Seg Neutrophils # Man Lymphocytes # (Manual) Monocytes # (Manual) Eosinophils # (Manual) Basophils # (Manual) PT INR APTT ABG pH ABG pO2 ABG HCO3 ABG O2 Saturation ABG Base Excess ABG Hemoglobin Oxyhemoglobin Sodium Potassium Chloride Carbon Dioxide BUN Creatinine Glucose POC Glucose 114 H 136 H 120 H Lactic Acid Calcium Ionized Calcium Phosphorus Magnesium Total Bilirubin AST ALT Alkaline Phosphatase Ammonia Total Creatine Kinase CK-MB (CK-2) CK-MB (CK-2) Rel Index Total Protein Albumin Urine WBC (Auto) Vancomycin Trough Salicylates Acetaminophen Plasma/Serum Alcohol Crossmatch 01/22/20 01/22/20 01/22/20 05:41 11:44 16:31 WBC RBC Hgb Hct MCH RDW Plt Count Lymph % (Auto) [place] % (Auto) [place] # Baso # Seg Neutrophils % Seg Neuts % (Manual) Lymphocytes % (Manual) Monocytes % (Manual) Seg Neutrophils # Seg Neutrophils # Man Lymphocytes # (Manual) Monocytes # (Manual) Eosinophils # (Manual) Basophils # (Manual) PT INR APTT ABG pH ABG pO2 ABG HCO3 ABG O2 Saturation ABG Base Excess ABG Hemoglobin Oxyhemoglobin Sodium Potassium Chloride Carbon Dioxide BUN Creatinine Glucose POC Glucose 124 H 173 H 111 H Lactic Acid Calcium Ionized Calcium Phosphorus Magnesium Total Bilirubin AST ALT Alkaline Phosphatase Ammonia Total Creatine Kinase CK-MB (CK-2) CK-MB (CK-2) Rel Index Total Protein Albumin Urine WBC (Auto) Vancomycin Trough Salicylates Acetaminophen Plasma/Serum Alcohol Crossmatch 01/22/20 01/23/20 01/23/20 23:25 05:15 12:15 WBC RBC Hgb Hct MCH RDW Plt Count Lymph % (Auto) [place] % (Auto) [place] # Baso # Seg Neutrophils % Seg Neuts % (Manual) Lymphocytes % (Manual) Monocytes % (Manual) Seg Neutrophils # Seg Neutrophils # Man Lymphocytes # (Manual) Monocytes # (Manual) Eosinophils # (Manual) Basophils # (Manual) PT INR APTT ABG pH ABG pO2 ABG HCO3 ABG O2 Saturation ABG Base Excess ABG Hemoglobin Oxyhemoglobin Sodium Potassium Chloride Carbon Dioxide BUN Creatinine Glucose POC Glucose 134 H 117 H 129 H Lactic Acid Calcium Ionized Calcium Phosphorus Magnesium Total Bilirubin AST ALT Alkaline Phosphatase Ammonia Total Creatine Kinase CK-MB (CK-2) CK-MB (CK-2) Rel Index Total Protein Albumin Urine WBC (Auto) Vancomycin Trough Salicylates Acetaminophen Plasma/Serum Alcohol Crossmatch 01/23/20 01/23/20 01/23/20 16:58 21:17 23:47 WBC RBC Hgb Hct MCH RDW Plt Count Lymph % (Auto) [place] % (Auto) [place] # Baso # Seg Neutrophils % Seg Neuts % (Manual) Lymphocytes % (Manual) Monocytes % (Manual) Seg Neutrophils # Seg Neutrophils # Man Lymphocytes # (Manual) Monocytes # (Manual) Eosinophils # (Manual) Basophils # (Manual) PT INR APTT ABG pH ABG pO2 ABG HCO3 ABG O2 Saturation ABG Base Excess ABG Hemoglobin Oxyhemoglobin Sodium Potassium Chloride Carbon Dioxide BUN Creatinine Glucose POC Glucose 156 H 185 H 156 H Lactic Acid Calcium Ionized Calcium Phosphorus Magnesium Total Bilirubin AST ALT Alkaline Phosphatase Ammonia Total Creatine Kinase CK-MB (CK-2) CK-MB (CK-2) Rel Index Total Protein Albumin Urine WBC (Auto) Vancomycin Trough Salicylates Acetaminophen Plasma/Serum Alcohol Crossmatch 01/24/20 01/24/20 01/24/20 04:47 04:47 05:59 WBC 17.8 H RBC 3.60 L Hgb Hct MCH RDW 16.2 H Plt Count 688 H Lymph % (Auto) 11.8 L [place] % (Auto) 7.5 H [place] # 1.3 H Baso # Seg Neutrophils % 79.9 H Seg Neuts % (Manual) Lymphocytes % (Manual) Monocytes % (Manual) Seg Neutrophils # 14.2 H Seg Neutrophils # Man Lymphocytes # (Manual) Monocytes # (Manual) Eosinophils # (Manual) Basophils # (Manual) PT INR APTT ABG pH ABG pO2 ABG HCO3 ABG O2 Saturation ABG Base Excess ABG Hemoglobin Oxyhemoglobin Sodium 131 L Potassium Chloride 91.2 L Carbon Dioxide BUN 22 H Creatinine 0.3 L Glucose 123 H POC Glucose 147 H Lactic Acid Calcium 10.9 H Ionized Calcium Phosphorus Magnesium Total Bilirubin AST ALT Alkaline Phosphatase Ammonia Total Creatine Kinase CK-MB (CK-2) CK-MB (CK-2) Rel Index Total Protein Albumin Urine WBC (Auto) Vancomycin Trough Salicylates Acetaminophen Plasma/Serum Alcohol Crossmatch 01/24/20 01/24/20 01/25/20 11:47 16:45 00:18 WBC RBC Hgb Hct MCH RDW Plt Count Lymph % (Auto) [place] % (Auto) [place] # Baso # Seg Neutrophils % Seg Neuts % (Manual) Lymphocytes % (Manual) Monocytes % (Manual) Seg Neutrophils # Seg Neutrophils # Man Lymphocytes # (Manual) Monocytes # (Manual) Eosinophils # (Manual) Basophils # (Manual) PT INR APTT ABG pH ABG pO2 ABG HCO3 ABG O2 Saturation ABG Base Excess ABG Hemoglobin Oxyhemoglobin Sodium Potassium Chloride Carbon Dioxide BUN Creatinine Glucose POC Glucose 114 H 108 H 119 H Lactic Acid Calcium Ionized Calcium Phosphorus Magnesium Total Bilirubin AST ALT Alkaline Phosphatase Ammonia Total Creatine Kinase CK-MB (CK-2) CK-MB (CK-2) Rel Index Total Protein Albumin Urine WBC (Auto) Vancomycin Trough Salicylates Acetaminophen Plasma/Serum Alcohol Crossmatch 01/25/20 01/25/20 01/25/20 07:18 11:58 16:56 WBC RBC Hgb Hct MCH RDW Plt Count Lymph % (Auto) [place] % (Auto) [place] # Baso # Seg Neutrophils % Seg Neuts % (Manual) Lymphocytes % (Manual) Monocytes % (Manual) Seg Neutrophils # Seg Neutrophils # Man Lymphocytes # (Manual) Monocytes # (Manual) Eosinophils # (Manual) Basophils # (Manual) PT INR APTT ABG pH ABG pO2 ABG HCO3 ABG O2 Saturation ABG Base Excess ABG Hemoglobin Oxyhemoglobin Sodium Potassium Chloride Carbon Dioxide BUN Creatinine Glucose POC Glucose 136 H 136 H 147 H Lactic Acid Calcium Ionized Calcium Phosphorus Magnesium Total Bilirubin AST ALT Alkaline Phosphatase Ammonia Total Creatine Kinase CK-MB (CK-2) CK-MB (CK-2) Rel Index Total Protein Albumin Urine WBC (Auto) Vancomycin Trough Salicylates Acetaminophen Plasma/Serum Alcohol Crossmatch 01/26/20 01/26/20 01/26/20 00:29 05:59 05:59 WBC 12.8 H RBC Hgb Hct MCH RDW 16.4 H Plt Count 743 H Lymph % (Auto) [place] % (Auto) [place] # 0.9 H Baso # Seg Neutrophils % 76.2 H Seg Neuts % (Manual) Lymphocytes % (Manual) Monocytes % (Manual) Seg Neutrophils # 9.8 H Seg Neutrophils # Man Lymphocytes # (Manual) Monocytes # (Manual) Eosinophils # (Manual) Basophils # (Manual) PT INR APTT ABG pH ABG pO2 ABG HCO3 ABG O2 Saturation ABG Base Excess ABG Hemoglobin Oxyhemoglobin Sodium 132 L Potassium Chloride 90.9 L Carbon Dioxide BUN 23 H Creatinine 0.4 L Glucose 122 H POC Glucose 107 H Lactic Acid Calcium 11.0 H Ionized Calcium Phosphorus Magnesium Total Bilirubin AST ALT Alkaline Phosphatase Ammonia Total Creatine Kinase CK-MB (CK-2) CK-MB (CK-2) Rel Index Total Protein Albumin Urine WBC (Auto) Vancomycin Trough Salicylates Acetaminophen Plasma/Serum Alcohol Crossmatch 01/26/20 01/26/20 01/26/20 06:27 12:06 16:49 WBC RBC Hgb Hct MCH RDW Plt Count Lymph % (Auto) [place] % (Auto) [place] # Baso # Seg Neutrophils % Seg Neuts % (Manual) Lymphocytes % (Manual) Monocytes % (Manual) Seg Neutrophils # Seg Neutrophils # Man Lymphocytes # (Manual) Monocytes # (Manual) Eosinophils # (Manual) Basophils # (Manual) PT INR APTT ABG pH ABG pO2 ABG HCO3 ABG O2 Saturation ABG Base Excess ABG Hemoglobin Oxyhemoglobin Sodium Potassium Chloride Carbon Dioxide BUN Creatinine Glucose POC Glucose 132 H 132 H 110 H Lactic Acid Calcium Ionized Calcium Phosphorus Magnesium Total Bilirubin AST ALT Alkaline Phosphatase Ammonia Total Creatine Kinase CK-MB (CK-2) CK-MB (CK-2) Rel Index Total Protein Albumin Urine WBC (Auto) Vancomycin Trough Salicylates Acetaminophen Plasma/Serum Alcohol Crossmatch 01/27/20 01/27/20 01/27/20 00:08 11:49 16:24 WBC RBC Hgb Hct MCH RDW Plt Count Lymph % (Auto) [place] % (Auto) [place] # Baso # Seg Neutrophils % Seg Neuts % (Manual) Lymphocytes % (Manual) Monocytes % (Manual) Seg Neutrophils # Seg Neutrophils # Man Lymphocytes # (Manual) Monocytes # (Manual) Eosinophils # (Manual) Basophils # (Manual) PT INR APTT ABG pH ABG pO2 ABG HCO3 ABG O2 Saturation ABG Base Excess ABG Hemoglobin Oxyhemoglobin Sodium Potassium Chloride Carbon Dioxide BUN Creatinine Glucose POC Glucose 107 H 119 H 129 H Lactic Acid Calcium Ionized Calcium Phosphorus Magnesium Total Bilirubin AST ALT Alkaline Phosphatase Ammonia Total Creatine Kinase CK-MB (CK-2) CK-MB (CK-2) Rel Index Total Protein Albumin Urine WBC (Auto) Vancomycin Trough Salicylates Acetaminophen Plasma/Serum Alcohol Crossmatch 01/27/20 01/28/20 01/28/20 18:28 01:00 06:22 WBC RBC Hgb Hct MCH RDW Plt Count Lymph % (Auto) [place] % (Auto) [place] # Baso # Seg Neutrophils % Seg Neuts % (Manual) Lymphocytes % (Manual) Monocytes % (Manual) Seg Neutrophils # Seg Neutrophils # Man Lymphocytes # (Manual) Monocytes # (Manual) Eosinophils # (Manual) Basophils # (Manual) PT INR APTT ABG pH ABG pO2 ABG HCO3 ABG O2 Saturation ABG Base Excess ABG Hemoglobin Oxyhemoglobin Sodium Potassium Chloride Carbon Dioxide BUN Creatinine Glucose POC Glucose 126 H 121 H 114 H Lactic Acid Calcium Ionized Calcium Phosphorus Magnesium Total Bilirubin AST ALT Alkaline Phosphatase Ammonia Total Creatine Kinase CK-MB (CK-2) CK-MB (CK-2) Rel Index Total Protein Albumin Urine WBC (Auto) Vancomycin Trough Salicylates Acetaminophen Plasma/Serum Alcohol Crossmatch 01/28/20 01/28/20 01/29/20 11:47 18:00 00:05 WBC RBC Hgb Hct MCH RDW Plt Count Lymph % (Auto) [place] % (Auto) [place] # Baso # Seg Neutrophils % Seg Neuts % (Manual) Lymphocytes % (Manual) Monocytes % (Manual) Seg Neutrophils # Seg Neutrophils # Man Lymphocytes # (Manual) Monocytes # (Manual) Eosinophils # (Manual) Basophils # (Manual) PT INR APTT ABG pH ABG pO2 ABG HCO3 ABG O2 Saturation ABG Base Excess ABG Hemoglobin Oxyhemoglobin Sodium Potassium Chloride Carbon Dioxide BUN Creatinine Glucose POC Glucose 106 H 117 H 127 H Lactic Acid Calcium Ionized Calcium Phosphorus Magnesium Total Bilirubin AST ALT Alkaline Phosphatase Ammonia Total Creatine Kinase CK-MB (CK-2) CK-MB (CK-2) Rel Index Total Protein Albumin Urine WBC (Auto) Vancomycin Trough Salicylates Acetaminophen Plasma/Serum Alcohol Crossmatch 01/29/20 01/29/20 01/29/20 06:04 11:40 16:38 WBC RBC Hgb Hct MCH RDW Plt Count Lymph % (Auto) [place] % (Auto) [place] # Baso # Seg Neutrophils % Seg Neuts % (Manual) Lymphocytes % (Manual) Monocytes % (Manual) Seg Neutrophils # Seg Neutrophils # Man Lymphocytes # (Manual) Monocytes # (Manual) Eosinophils # (Manual) Basophils # (Manual) PT INR APTT ABG pH ABG pO2 ABG HCO3 ABG O2 Saturation ABG Base Excess ABG Hemoglobin Oxyhemoglobin Sodium Potassium Chloride Carbon Dioxide BUN Creatinine Glucose POC Glucose 147 H 139 H 143 H Lactic Acid Calcium Ionized Calcium Phosphorus Magnesium Total Bilirubin AST ALT Alkaline Phosphatase Ammonia Total Creatine Kinase CK-MB (CK-2) CK-MB (CK-2) Rel Index Total Protein Albumin Urine WBC (Auto) Vancomycin Trough Salicylates Acetaminophen Plasma/Serum Alcohol Crossmatch 01/29/20 01/30/20 01/30/20 23:46 06:43 12:07 WBC RBC Hgb Hct MCH RDW Plt Count Lymph % (Auto) [place] % (Auto) [place] # Baso # Seg Neutrophils % Seg Neuts % (Manual) Lymphocytes % (Manual) Monocytes % (Manual) Seg Neutrophils # Seg Neutrophils # Man Lymphocytes # (Manual) Monocytes # (Manual) Eosinophils # (Manual) Basophils # (Manual) PT INR APTT ABG pH ABG pO2 ABG HCO3 ABG O2 Saturation ABG Base Excess ABG Hemoglobin Oxyhemoglobin Sodium Potassium Chloride Carbon Dioxide BUN Creatinine Glucose POC Glucose 122 H 122 H 134 H Lactic Acid Calcium Ionized Calcium Phosphorus Magnesium Total Bilirubin AST ALT Alkaline Phosphatase Ammonia Total Creatine Kinase CK-MB (CK-2) CK-MB (CK-2) Rel Index Total Protein Albumin Urine WBC (Auto) Vancomycin Trough Salicylates Acetaminophen Plasma/Serum Alcohol Crossmatch 01/30/20 01/31/20 01/31/20 17:59 00:52 05:54 WBC RBC Hgb Hct MCH RDW Plt Count Lymph % (Auto) [place] % (Auto) [place] # Baso # Seg Neutrophils % Seg Neuts % (Manual) Lymphocytes % (Manual) Monocytes % (Manual) Seg Neutrophils # Seg Neutrophils # Man Lymphocytes # (Manual) Monocytes # (Manual) Eosinophils # (Manual) Basophils # (Manual) PT INR APTT ABG pH ABG pO2 ABG HCO3 ABG O2 Saturation ABG Base Excess ABG Hemoglobin Oxyhemoglobin Sodium Potassium Chloride Carbon Dioxide BUN Creatinine Glucose POC Glucose 116 H 127 H 127 H Lactic Acid Calcium Ionized Calcium Phosphorus Magnesium Total Bilirubin AST ALT Alkaline Phosphatase Ammonia Total Creatine Kinase CK-MB (CK-2) CK-MB (CK-2) Rel Index Total Protein Albumin Urine WBC (Auto) Vancomycin Trough Salicylates Acetaminophen Plasma/Serum Alcohol Crossmatch 01/31/20 02/01/20 02/01/20 12:20 00:48 12:21 WBC RBC Hgb Hct MCH RDW Plt Count Lymph % (Auto) [place] % (Auto) [place] # Baso # Seg Neutrophils % Seg Neuts % (Manual) Lymphocytes % (Manual) Monocytes % (Manual) Seg Neutrophils # Seg Neutrophils # Man Lymphocytes # (Manual) Monocytes # (Manual) Eosinophils # (Manual) Basophils # (Manual) PT INR APTT ABG pH ABG pO2 ABG HCO3 ABG O2 Saturation ABG Base Excess ABG Hemoglobin Oxyhemoglobin Sodium Potassium Chloride Carbon Dioxide BUN Creatinine Glucose POC Glucose 126 H 154 H 123 H Lactic Acid Calcium Ionized Calcium Phosphorus Magnesium Total Bilirubin AST ALT Alkaline Phosphatase Ammonia Total Creatine Kinase CK-MB (CK-2) CK-MB (CK-2) Rel Index Total Protein Albumin Urine WBC (Auto) Vancomycin Trough Salicylates Acetaminophen Plasma/Serum Alcohol Crossmatch 02/01/20 02/02/20 02/02/20 23:58 06:08 11:50 WBC RBC Hgb Hct MCH RDW Plt Count Lymph % (Auto) [place] % (Auto) [place] # Baso # Seg Neutrophils % Seg Neuts % (Manual) Lymphocytes % (Manual) Monocytes % (Manual) Seg Neutrophils # Seg Neutrophils # Man Lymphocytes # (Manual) Monocytes # (Manual) Eosinophils # (Manual) Basophils # (Manual) PT INR APTT ABG pH ABG pO2 ABG HCO3 ABG O2 Saturation ABG Base Excess ABG Hemoglobin Oxyhemoglobin Sodium Potassium Chloride Carbon Dioxide BUN Creatinine Glucose POC Glucose 125 H 144 H 131 H Lactic Acid Calcium Ionized Calcium Phosphorus Magnesium Total Bilirubin AST ALT Alkaline Phosphatase Ammonia Total Creatine Kinase CK-MB (CK-2) CK-MB (CK-2) Rel Index Total Protein Albumin Urine WBC (Auto) Vancomycin Trough Salicylates Acetaminophen Plasma/Serum Alcohol Crossmatch 02/02/20 02/03/20 02/03/20 17:53 00:14 05:47 WBC RBC Hgb Hct MCH RDW Plt Count Lymph % (Auto) [place] % (Auto) [place] # Baso # Seg Neutrophils % Seg Neuts % (Manual) Lymphocytes % (Manual) Monocytes % (Manual) Seg Neutrophils # Seg Neutrophils # Man Lymphocytes # (Manual) Monocytes # (Manual) Eosinophils # (Manual) Basophils # (Manual) PT INR APTT ABG pH ABG pO2 ABG HCO3 ABG O2 Saturation ABG Base Excess ABG Hemoglobin Oxyhemoglobin Sodium Potassium Chloride Carbon Dioxide BUN Creatinine Glucose POC Glucose 108 H 122 H 118 H Lactic Acid Calcium Ionized Calcium Phosphorus Magnesium Total Bilirubin AST ALT Alkaline Phosphatase Ammonia Total Creatine Kinase CK-MB (CK-2) CK-MB (CK-2) Rel Index Total Protein Albumin Urine WBC (Auto) Vancomycin Trough Salicylates Acetaminophen Plasma/Serum Alcohol Crossmatch 02/03/20 02/03/20 02/03/20 05:59 05:59 11:49 WBC RBC 3.48 L Hgb Hct 29.9 L MCH RDW 16.2 H Plt Count 707 H Lymph % (Auto) [place] % (Auto) 9.3 H [place] # 0.9 H Baso # Seg Neutrophils % Seg Neuts % (Manual) Lymphocytes % (Manual) Monocytes % (Manual) Seg Neutrophils # Seg Neutrophils # Man Lymphocytes # (Manual) Monocytes # (Manual) Eosinophils # (Manual) Basophils # (Manual) PT INR APTT ABG pH ABG pO2 ABG HCO3 ABG O2 Saturation ABG Base Excess ABG Hemoglobin Oxyhemoglobin Sodium 136 L Potassium Chloride 93.4 L Carbon Dioxide BUN 20 H Creatinine 0.5 L Glucose 101 H POC Glucose 133 H Lactic Acid Calcium 10.8 H Ionized Calcium Phosphorus Magnesium Total Bilirubin AST ALT Alkaline Phosphatase Ammonia Total Creatine Kinase CK-MB (CK-2) CK-MB (CK-2) Rel Index Total Protein Albumin Urine WBC (Auto) Vancomycin Trough Salicylates Acetaminophen Plasma/Serum Alcohol Crossmatch 02/03/20 02/04/20 02/04/20 23:19 05:37 23:56 WBC RBC Hgb Hct MCH RDW Plt Count Lymph % (Auto) [place] % (Auto) [place] # Baso # Seg Neutrophils % Seg Neuts % (Manual) Lymphocytes % (Manual) Monocytes % (Manual) Seg Neutrophils # Seg Neutrophils # Man Lymphocytes # (Manual) Monocytes # (Manual) Eosinophils # (Manual) Basophils # (Manual) PT INR APTT ABG pH ABG pO2 ABG HCO3 ABG O2 Saturation ABG Base Excess ABG Hemoglobin Oxyhemoglobin Sodium Potassium Chloride Carbon Dioxide BUN Creatinine Glucose POC Glucose 135 H 108 H 158 H Lactic Acid Calcium Ionized Calcium Phosphorus Magnesium Total Bilirubin AST ALT Alkaline Phosphatase Ammonia Total Creatine Kinase CK-MB (CK-2) CK-MB (CK-2) Rel Index Total Protein Albumin Urine WBC (Auto) Vancomycin Trough Salicylates Acetaminophen Plasma/Serum Alcohol Crossmatch 02/05/20 02/05/20 02/06/20 05:33 23:24 05:50 WBC RBC Hgb Hct MCH RDW Plt Count Lymph % (Auto) [place] % (Auto) [place] # Baso # Seg Neutrophils % Seg Neuts % (Manual) Lymphocytes % (Manual) Monocytes % (Manual) Seg Neutrophils # Seg Neutrophils # Man Lymphocytes # (Manual) Monocytes # (Manual) Eosinophils # (Manual) Basophils # (Manual) PT INR APTT ABG pH ABG pO2 ABG HCO3 ABG O2 Saturation ABG Base Excess ABG Hemoglobin Oxyhemoglobin Sodium Potassium Chloride Carbon Dioxide BUN Creatinine Glucose POC Glucose 152 H 158 H 110 H Lactic Acid Calcium Ionized Calcium Phosphorus Magnesium Total Bilirubin AST ALT Alkaline Phosphatase Ammonia Total Creatine Kinase CK-MB (CK-2) CK-MB (CK-2) Rel Index Total Protein Albumin Urine WBC (Auto) Vancomycin Trough Salicylates Acetaminophen Plasma/Serum Alcohol Crossmatch 02/06/20 02/07/20 02/07/20 16:03 00:13 05:27 WBC RBC Hgb Hct MCH RDW Plt Count Lymph % (Auto) [place] % (Auto) [place] # Baso # Seg Neutrophils % Seg Neuts % (Manual) Lymphocytes % (Manual) Monocytes % (Manual) Seg Neutrophils # Seg Neutrophils # Man Lymphocytes # (Manual) Monocytes # (Manual) Eosinophils # (Manual) Basophils # (Manual) PT INR APTT ABG pH ABG pO2 ABG HCO3 ABG O2 Saturation ABG Base Excess ABG Hemoglobin Oxyhemoglobin Sodium Potassium Chloride Carbon Dioxide BUN Creatinine Glucose POC Glucose 130 H 115 H 115 H Lactic Acid Calcium Ionized Calcium Phosphorus Magnesium Total Bilirubin AST ALT Alkaline Phosphatase Ammonia Total Creatine Kinase CK-MB (CK-2) CK-MB (CK-2) Rel Index Total Protein Albumin Urine WBC (Auto) Vancomycin Trough Salicylates Acetaminophen Plasma/Serum Alcohol Crossmatch 02/07/20 02/07/20 02/08/20 11:42 17:23 00:37 WBC RBC Hgb Hct MCH RDW Plt Count Lymph % (Auto) [place] % (Auto) [place] # Baso # Seg Neutrophils % Seg Neuts % (Manual) Lymphocytes % (Manual) Monocytes % (Manual) Seg Neutrophils # Seg Neutrophils # Man Lymphocytes # (Manual) Monocytes # (Manual) Eosinophils # (Manual) Basophils # (Manual) PT INR APTT ABG pH ABG pO2 ABG HCO3 ABG O2 Saturation ABG Base Excess ABG Hemoglobin Oxyhemoglobin Sodium Potassium Chloride Carbon Dioxide BUN Creatinine Glucose POC Glucose 113 H 114 H 136 H Lactic Acid Calcium Ionized Calcium Phosphorus Magnesium Total Bilirubin AST ALT Alkaline Phosphatase Ammonia Total Creatine Kinase CK-MB (CK-2) CK-MB (CK-2) Rel Index Total Protein Albumin Urine WBC (Auto) Vancomycin Trough Salicylates Acetaminophen Plasma/Serum Alcohol Crossmatch 02/08/20 02/08/20 02/08/20 08:52 11:42 17:02 WBC RBC Hgb Hct MCH RDW Plt Count Lymph % (Auto) [place] % (Auto) [place] # Baso # Seg Neutrophils % Seg Neuts % (Manual) Lymphocytes % (Manual) Monocytes % (Manual) Seg Neutrophils # Seg Neutrophils # Man Lymphocytes # (Manual) Monocytes # (Manual) Eosinophils # (Manual) Basophils # (Manual) PT INR APTT ABG pH ABG pO2 ABG HCO3 ABG O2 Saturation ABG Base Excess ABG Hemoglobin Oxyhemoglobin Sodium 136 L Potassium Chloride 95.7 L Carbon Dioxide BUN 21 H Creatinine 0.4 L Glucose POC Glucose 128 H 145 H Lactic Acid Calcium 10.4 H Ionized Calcium Phosphorus Magnesium Total Bilirubin AST ALT Alkaline Phosphatase Ammonia Total Creatine Kinase CK-MB (CK-2) CK-MB (CK-2) Rel Index Total Protein Albumin Urine WBC (Auto) Vancomycin Trough Salicylates Acetaminophen Plasma/Serum Alcohol Crossmatch 02/09/20 02/09/20 02/09/20 01:05 11:52 16:19 WBC RBC Hgb Hct MCH RDW Plt Count Lymph % (Auto) [place] % (Auto) [place] # Baso # Seg Neutrophils % Seg Neuts % (Manual) Lymphocytes % (Manual) Monocytes % (Manual) Seg Neutrophils # Seg Neutrophils # Man Lymphocytes # (Manual) Monocytes # (Manual) Eosinophils # (Manual) Basophils # (Manual) PT INR APTT ABG pH ABG pO2 ABG HCO3 ABG O2 Saturation ABG Base Excess ABG Hemoglobin Oxyhemoglobin Sodium Potassium Chloride Carbon Dioxide BUN Creatinine Glucose POC Glucose 117 H 141 H 113 H Lactic Acid Calcium Ionized Calcium Phosphorus Magnesium Total Bilirubin AST ALT Alkaline Phosphatase Ammonia Total Creatine Kinase CK-MB (CK-2) CK-MB (CK-2) Rel Index Total Protein Albumin Urine WBC (Auto) Vancomycin Trough Salicylates Acetaminophen Plasma/Serum Alcohol Crossmatch 02/10/20 02/10/20 02/10/20 05:25 12:50 17:08 WBC RBC Hgb Hct MCH RDW Plt Count Lymph % (Auto) [place] % (Auto) [place] # Baso # Seg Neutrophils % Seg Neuts % (Manual) Lymphocytes % (Manual) Monocytes % (Manual) Seg Neutrophils # Seg Neutrophils # Man Lymphocytes # (Manual) Monocytes # (Manual) Eosinophils # (Manual) Basophils # (Manual) PT INR APTT ABG pH ABG pO2 ABG HCO3 ABG O2 Saturation ABG Base Excess ABG Hemoglobin Oxyhemoglobin Sodium Potassium Chloride Carbon Dioxide BUN Creatinine Glucose POC Glucose 136 H 127 H 111 H Lactic Acid Calcium Ionized Calcium Phosphorus Magnesium Total Bilirubin AST ALT Alkaline Phosphatase Ammonia Total Creatine Kinase CK-MB (CK-2) CK-MB (CK-2) Rel Index Total Protein Albumin Urine WBC (Auto) Vancomycin Trough Salicylates Acetaminophen Plasma/Serum Alcohol Crossmatch 02/10/20 02/11/20 02/11/20 23:55 06:11 12:07 WBC RBC Hgb Hct MCH RDW Plt Count Lymph % (Auto) [place] % (Auto) [place] # Baso # Seg Neutrophils % Seg Neuts % (Manual) Lymphocytes % (Manual) Monocytes % (Manual) Seg Neutrophils # Seg Neutrophils # Man Lymphocytes # (Manual) Monocytes # (Manual) Eosinophils # (Manual) Basophils # (Manual) PT INR APTT ABG pH ABG pO2 ABG HCO3 ABG O2 Saturation ABG Base Excess ABG Hemoglobin Oxyhemoglobin Sodium Potassium Chloride Carbon Dioxide BUN Creatinine Glucose POC Glucose 129 H 128 H 141 H Lactic Acid Calcium Ionized Calcium Phosphorus Magnesium Total Bilirubin AST ALT Alkaline Phosphatase Ammonia Total Creatine Kinase CK-MB (CK-2) CK-MB (CK-2) Rel Index Total Protein Albumin Urine WBC (Auto) Vancomycin Trough Salicylates Acetaminophen Plasma/Serum Alcohol Crossmatch 02/11/20 02/12/20 02/13/20 18:22 02:39 06:45 WBC RBC Hgb Hct MCH RDW Plt Count Lymph % (Auto) [place] % (Auto) [place] # Baso # Seg Neutrophils % Seg Neuts % (Manual) Lymphocytes % (Manual) Monocytes % (Manual) Seg Neutrophils # Seg Neutrophils # Man Lymphocytes # (Manual) Monocytes # (Manual) Eosinophils # (Manual) Basophils # (Manual) PT INR APTT ABG pH ABG pO2 ABG HCO3 ABG O2 Saturation ABG Base Excess ABG Hemoglobin Oxyhemoglobin Sodium Potassium Chloride Carbon Dioxide BUN Creatinine Glucose POC Glucose 118 H 107 H 124 H Lactic Acid Calcium Ionized Calcium Phosphorus Magnesium Total Bilirubin AST ALT Alkaline Phosphatase Ammonia Total Creatine Kinase CK-MB (CK-2) CK-MB (CK-2) Rel Index Total Protein Albumin Urine WBC (Auto) Vancomycin Trough Salicylates Acetaminophen Plasma/Serum Alcohol Crossmatch 02/13/20 02/13/20 02/14/20 12:26 18:19 00:21 WBC RBC Hgb Hct MCH RDW Plt Count Lymph % (Auto) [place] % (Auto) [place] # Baso # Seg Neutrophils % Seg Neuts % (Manual) Lymphocytes % (Manual) Monocytes % (Manual) Seg Neutrophils # Seg Neutrophils # Man Lymphocytes # (Manual) Monocytes # (Manual) Eosinophils # (Manual) Basophils # (Manual) PT INR APTT ABG pH ABG pO2 ABG HCO3 ABG O2 Saturation ABG Base Excess ABG Hemoglobin Oxyhemoglobin Sodium Potassium Chloride Carbon Dioxide BUN Creatinine Glucose POC Glucose 124 H 118 H 130 H Lactic Acid Calcium Ionized Calcium Phosphorus Magnesium Total Bilirubin AST ALT Alkaline Phosphatase Ammonia Total Creatine Kinase CK-MB (CK-2) CK-MB (CK-2) Rel Index Total Protein Albumin Urine WBC (Auto) Vancomycin Trough Salicylates Acetaminophen Plasma/Serum Alcohol Crossmatch 02/14/20 02/14/20 02/16/20 11:19 16:16 00:58 WBC RBC Hgb Hct MCH RDW Plt Count Lymph % (Auto) [place] % (Auto) [place] # Baso # Seg Neutrophils % Seg Neuts % (Manual) Lymphocytes % (Manual) Monocytes % (Manual) Seg Neutrophils # Seg Neutrophils # Man Lymphocytes # (Manual) Monocytes # (Manual) Eosinophils # (Manual) Basophils # (Manual) PT INR APTT ABG pH ABG pO2 ABG HCO3 ABG O2 Saturation ABG Base Excess ABG Hemoglobin Oxyhemoglobin Sodium Potassium Chloride Carbon Dioxide BUN Creatinine Glucose POC Glucose 135 H 119 H 121 H Lactic Acid Calcium Ionized Calcium Phosphorus Magnesium Total Bilirubin AST ALT Alkaline Phosphatase Ammonia Total Creatine Kinase CK-MB (CK-2) CK-MB (CK-2) Rel Index Total Protein Albumin Urine WBC (Auto) Vancomycin Trough Salicylates Acetaminophen Plasma/Serum Alcohol Crossmatch 02/16/20 02/16/20 02/16/20 12:12 18:22 23:51 WBC RBC Hgb Hct MCH RDW Plt Count Lymph % (Auto) [place] % (Auto) [place] # Baso # Seg Neutrophils % Seg Neuts % (Manual) Lymphocytes % (Manual) Monocytes % (Manual) Seg Neutrophils # Seg Neutrophils # Man Lymphocytes # (Manual) Monocytes # (Manual) Eosinophils # (Manual) Basophils # (Manual) PT INR APTT ABG pH ABG pO2 ABG HCO3 ABG O2 Saturation ABG Base Excess ABG Hemoglobin Oxyhemoglobin Sodium Potassium Chloride Carbon Dioxide BUN Creatinine Glucose POC Glucose 107 H 106 H 128 H Lactic Acid Calcium Ionized Calcium Phosphorus Magnesium Total Bilirubin AST ALT Alkaline Phosphatase Ammonia Total Creatine Kinase CK-MB (CK-2) CK-MB (CK-2) Rel Index Total Protein Albumin Urine WBC (Auto) Vancomycin Trough Salicylates Acetaminophen Plasma/Serum Alcohol Crossmatch 02/17/20 02/17/20 02/17/20 05:50 07:57 07:57 WBC 12.6 H RBC 3.52 L Hgb Hct MCH RDW 15.3 H Plt Count 643 H Lymph % (Auto) [place] % (Auto) 8.0 H [place] # 1.0 H Baso # Seg Neutrophils % Seg Neuts % (Manual) Lymphocytes % (Manual) Monocytes % (Manual) Seg Neutrophils # 8.5 H Seg Neutrophils # Man Lymphocytes # (Manual) Monocytes # (Manual) Eosinophils # (Manual) Basophils # (Manual) PT INR APTT ABG pH ABG pO2 ABG HCO3 ABG O2 Saturation ABG Base Excess ABG Hemoglobin Oxyhemoglobin Sodium Potassium Chloride 96.9 L Carbon Dioxide BUN 21 H Creatinine 0.4 L Glucose 113 H POC Glucose 116 H Lactic Acid Calcium 10.5 H Ionized Calcium Phosphorus Magnesium Total Bilirubin AST ALT Alkaline Phosphatase Ammonia Total Creatine Kinase CK-MB (CK-2) CK-MB (CK-2) Rel Index Total Protein Albumin Urine WBC (Auto) Vancomycin Trough Salicylates Acetaminophen Plasma/Serum Alcohol Crossmatch 02/17/20 02/17/20 02/18/20 12:05 18:16 00:13 WBC RBC Hgb Hct MCH RDW Plt Count Lymph % (Auto) [place] % (Auto) [place] # Baso # Seg Neutrophils % Seg Neuts % (Manual) Lymphocytes % (Manual) Monocytes % (Manual) Seg Neutrophils # Seg Neutrophils # Man Lymphocytes # (Manual) Monocytes # (Manual) Eosinophils # (Manual) Basophils # (Manual) PT INR APTT ABG pH ABG pO2 ABG HCO3 ABG O2 Saturation ABG Base Excess ABG Hemoglobin Oxyhemoglobin Sodium Potassium Chloride Carbon Dioxide BUN Creatinine Glucose POC Glucose 139 H 127 H 144 H Lactic Acid Calcium Ionized Calcium Phosphorus Magnesium Total Bilirubin AST ALT Alkaline Phosphatase Ammonia Total Creatine Kinase CK-MB (CK-2) CK-MB (CK-2) Rel Index Total Protein Albumin Urine WBC (Auto) Vancomycin Trough Salicylates Acetaminophen Plasma/Serum Alcohol Crossmatch 02/18/20 02/18/20 02/19/20 17:41 23:28 05:17 WBC RBC Hgb Hct MCH RDW Plt Count Lymph % (Auto) [place] % (Auto) [place] # Baso # Seg Neutrophils % Seg Neuts % (Manual) Lymphocytes % (Manual) Monocytes % (Manual) Seg Neutrophils # Seg Neutrophils # Man Lymphocytes # (Manual) Monocytes # (Manual) Eosinophils # (Manual) Basophils # (Manual) PT INR APTT ABG pH ABG pO2 ABG HCO3 ABG O2 Saturation ABG Base Excess ABG Hemoglobin Oxyhemoglobin Sodium Potassium Chloride Carbon Dioxide BUN Creatinine Glucose POC Glucose 118 H 166 H 116 H Lactic Acid Calcium Ionized Calcium Phosphorus Magnesium Total Bilirubin AST ALT Alkaline Phosphatase Ammonia Total Creatine Kinase CK-MB (CK-2) CK-MB (CK-2) Rel Index Total Protein Albumin Urine WBC (Auto) Vancomycin Trough Salicylates Acetaminophen Plasma/Serum Alcohol Crossmatch 02/19/20 02/19/20 02/20/20 12:33 17:02 00:12 WBC RBC Hgb Hct MCH RDW Plt Count Lymph % (Auto) [place] % (Auto) [place] # Baso # Seg Neutrophils % Seg Neuts % (Manual) Lymphocytes % (Manual) Monocytes % (Manual) Seg Neutrophils # Seg Neutrophils # Man Lymphocytes # (Manual) Monocytes # (Manual) Eosinophils # (Manual) Basophils # (Manual) PT INR APTT ABG pH ABG pO2 ABG HCO3 ABG O2 Saturation ABG Base Excess ABG Hemoglobin Oxyhemoglobin Sodium Potassium Chloride Carbon Dioxide BUN Creatinine Glucose POC Glucose 115 H 108 H 153 H Lactic Acid Calcium Ionized Calcium Phosphorus Magnesium Total Bilirubin AST ALT Alkaline Phosphatase Ammonia Total Creatine Kinase CK-MB (CK-2) CK-MB (CK-2) Rel Index Total Protein Albumin Urine WBC (Auto) Vancomycin Trough Salicylates Acetaminophen Plasma/Serum Alcohol Crossmatch 02/20/20 02/20/20 02/21/20 12:00 23:13 05:07 WBC RBC Hgb Hct MCH RDW Plt Count Lymph % (Auto) [place] % (Auto) [place] # Baso # Seg Neutrophils % Seg Neuts % (Manual) Lymphocytes % (Manual) Monocytes % (Manual) Seg Neutrophils # Seg Neutrophils # Man Lymphocytes # (Manual) Monocytes # (Manual) Eosinophils # (Manual) Basophils # (Manual) PT INR APTT ABG pH ABG pO2 ABG HCO3 ABG O2 Saturation ABG Base Excess ABG Hemoglobin Oxyhemoglobin Sodium Potassium Chloride Carbon Dioxide BUN Creatinine Glucose POC Glucose 171 H 129 H 116 H Lactic Acid Calcium Ionized Calcium Phosphorus Magnesium Total Bilirubin AST ALT Alkaline Phosphatase Ammonia Total Creatine Kinase CK-MB (CK-2) CK-MB (CK-2) Rel Index Total Protein Albumin Urine WBC (Auto) Vancomycin Trough Salicylates Acetaminophen Plasma/Serum Alcohol Crossmatch 02/21/20 02/22/20 02/22/20 12:15 00:42 06:30 WBC RBC Hgb Hct MCH RDW Plt Count Lymph % (Auto) [place] % (Auto) [place] # Baso # Seg Neutrophils % Seg Neuts % (Manual) Lymphocytes % (Manual) Monocytes % (Manual) Seg Neutrophils # Seg Neutrophils # Man Lymphocytes # (Manual) Monocytes # (Manual) Eosinophils # (Manual) Basophils # (Manual) PT INR APTT ABG pH ABG pO2 ABG HCO3 ABG O2 Saturation ABG Base Excess ABG Hemoglobin Oxyhemoglobin Sodium Potassium Chloride Carbon Dioxide BUN Creatinine Glucose POC Glucose 124 H 142 H 117 H Lactic Acid Calcium Ionized Calcium Phosphorus Magnesium Total Bilirubin AST ALT Alkaline Phosphatase Ammonia Total Creatine Kinase CK-MB (CK-2) CK-MB (CK-2) Rel Index Total Protein Albumin Urine WBC (Auto) Vancomycin Trough Salicylates Acetaminophen Plasma/Serum Alcohol Crossmatch 02/22/20 02/22/20 02/23/20 12:20 17:55 12:46 WBC RBC Hgb Hct MCH RDW Plt Count Lymph % (Auto) [place] % (Auto) [place] # Baso # Seg Neutrophils % Seg Neuts % (Manual) Lymphocytes % (Manual) Monocytes % (Manual) Seg Neutrophils # Seg Neutrophils # Man Lymphocytes # (Manual) Monocytes # (Manual) Eosinophils # (Manual) Basophils # (Manual) PT INR APTT ABG pH ABG pO2 ABG HCO3 ABG O2 Saturation ABG Base Excess ABG Hemoglobin Oxyhemoglobin Sodium Potassium Chloride Carbon Dioxide BUN Creatinine Glucose POC Glucose 121 H 157 H 112 H Lactic Acid Calcium Ionized Calcium Phosphorus Magnesium Total Bilirubin AST ALT Alkaline Phosphatase Ammonia Total Creatine Kinase CK-MB (CK-2) CK-MB (CK-2) Rel Index Total Protein Albumin Urine WBC (Auto) Vancomycin Trough Salicylates Acetaminophen Plasma/Serum Alcohol Crossmatch 02/23/20 02/24/20 02/24/20 16:47 00:38 07:00 WBC RBC Hgb Hct MCH RDW Plt Count Lymph % (Auto) [place] % (Auto) [place] # Baso # Seg Neutrophils % Seg Neuts % (Manual) Lymphocytes % (Manual) Monocytes % (Manual) Seg Neutrophils # Seg Neutrophils # Man Lymphocytes # (Manual) Monocytes # (Manual) Eosinophils # (Manual) Basophils # (Manual) PT INR APTT ABG pH ABG pO2 ABG HCO3 ABG O2 Saturation ABG Base Excess ABG Hemoglobin Oxyhemoglobin Sodium Potassium Chloride Carbon Dioxide BUN Creatinine Glucose POC Glucose 142 H 138 H 118 H Lactic Acid Calcium Ionized Calcium Phosphorus Magnesium Total Bilirubin AST ALT Alkaline Phosphatase Ammonia Total Creatine Kinase CK-MB (CK-2) CK-MB (CK-2) Rel Index Total Protein Albumin Urine WBC (Auto) Vancomycin Trough Salicylates Acetaminophen Plasma/Serum Alcohol Crossmatch 02/24/20 02/24/20 02/25/20 11:41 18:33 18:24 WBC RBC Hgb Hct MCH RDW Plt Count Lymph % (Auto) [place] % (Auto) [place] # Baso # Seg Neutrophils % Seg Neuts % (Manual) Lymphocytes % (Manual) Monocytes % (Manual) Seg Neutrophils # Seg Neutrophils # Man Lymphocytes # (Manual) Monocytes # (Manual) Eosinophils # (Manual) Basophils # (Manual) PT INR APTT ABG pH ABG pO2 ABG HCO3 ABG O2 Saturation ABG Base Excess ABG Hemoglobin Oxyhemoglobin Sodium Potassium Chloride Carbon Dioxide BUN Creatinine Glucose POC Glucose 152 H 126 H 120 H Lactic Acid Calcium Ionized Calcium Phosphorus Magnesium Total Bilirubin AST ALT Alkaline Phosphatase Ammonia Total Creatine Kinase CK-MB (CK-2) CK-MB (CK-2) Rel Index Total Protein Albumin Urine WBC (Auto) Vancomycin Trough Salicylates Acetaminophen Plasma/Serum Alcohol Crossmatch 02/25/20 02/26/20 02/26/20 23:40 05:46 11:32 WBC RBC Hgb Hct MCH RDW Plt Count Lymph % (Auto) [place] % (Auto) [place] # Baso # Seg Neutrophils % Seg Neuts % (Manual) Lymphocytes % (Manual) Monocytes % (Manual) Seg Neutrophils # Seg Neutrophils # Man Lymphocytes # (Manual) Monocytes # (Manual) Eosinophils # (Manual) Basophils # (Manual) PT INR APTT ABG pH ABG pO2 ABG HCO3 ABG O2 Saturation ABG Base Excess ABG Hemoglobin Oxyhemoglobin Sodium Potassium Chloride Carbon Dioxide BUN Creatinine Glucose POC Glucose 114 H 113 H 106 H Lactic Acid Calcium Ionized Calcium Phosphorus Magnesium Total Bilirubin AST ALT Alkaline Phosphatase Ammonia Total Creatine Kinase CK-MB (CK-2) CK-MB (CK-2) Rel Index Total Protein Albumin Urine WBC (Auto) Vancomycin Trough Salicylates Acetaminophen Plasma/Serum Alcohol Crossmatch 02/26/20 02/27/20 02/27/20 16:14 11:53 17:54 WBC RBC Hgb Hct MCH RDW Plt Count Lymph % (Auto) [place] % (Auto) [place] # Baso # Seg Neutrophils % Seg Neuts % (Manual) Lymphocytes % (Manual) Monocytes % (Manual) Seg Neutrophils # Seg Neutrophils # Man Lymphocytes # (Manual) Monocytes # (Manual) Eosinophils # (Manual) Basophils # (Manual) PT INR APTT ABG pH ABG pO2 ABG HCO3 ABG O2 Saturation ABG Base Excess ABG Hemoglobin Oxyhemoglobin Sodium Potassium Chloride Carbon Dioxide BUN Creatinine Glucose POC Glucose 123 H 134 H 119 H Lactic Acid Calcium Ionized Calcium Phosphorus Magnesium Total Bilirubin AST ALT Alkaline Phosphatase Ammonia Total Creatine Kinase CK-MB (CK-2) CK-MB (CK-2) Rel Index Total Protein Albumin Urine WBC (Auto) Vancomycin Trough Salicylates Acetaminophen Plasma/Serum Alcohol Crossmatch 02/27/20 02/28/20 02/28/20 23:51 03:40 03:40 WBC RBC 3.58 L Hgb Hct MCH RDW Plt Count 575 H Lymph % (Auto) [place] % (Auto) 9.4 H [place] # 1.0 H Baso # Seg Neutrophils % Seg Neuts % (Manual) Lymphocytes % (Manual) Monocytes % (Manual) Seg Neutrophils # Seg Neutrophils # Man Lymphocytes # (Manual) Monocytes # (Manual) Eosinophils # (Manual) Basophils # (Manual) PT INR APTT ABG pH ABG pO2 ABG HCO3 ABG O2 Saturation ABG Base Excess ABG Hemoglobin Oxyhemoglobin Sodium Potassium Chloride Carbon Dioxide BUN 23 H Creatinine 0.5 L Glucose 114 H POC Glucose 138 H Lactic Acid Calcium Ionized Calcium Phosphorus Magnesium Total Bilirubin AST ALT Alkaline Phosphatase Ammonia Total Creatine Kinase CK-MB (CK-2) CK-MB (CK-2) Rel Index Total Protein Albumin Urine WBC (Auto) Vancomycin Trough Salicylates Acetaminophen Plasma/Serum Alcohol Crossmatch 02/28/20 02/28/20 02/29/20 12:37 18:38 05:50 WBC RBC Hgb Hct MCH RDW Plt Count Lymph % (Auto) [place] % (Auto) [place] # Baso # Seg Neutrophils % Seg Neuts % (Manual) Lymphocytes % (Manual) Monocytes % (Manual) Seg Neutrophils # Seg Neutrophils # Man Lymphocytes # (Manual) Monocytes # (Manual) Eosinophils # (Manual) Basophils # (Manual) PT INR APTT ABG pH ABG pO2 ABG HCO3 ABG O2 Saturation ABG Base Excess ABG Hemoglobin Oxyhemoglobin Sodium Potassium Chloride Carbon Dioxide BUN Creatinine Glucose POC Glucose 115 H 120 H 114 H Lactic Acid Calcium Ionized Calcium Phosphorus Magnesium Total Bilirubin AST ALT Alkaline Phosphatase Ammonia Total Creatine Kinase CK-MB (CK-2) CK-MB (CK-2) Rel Index Total Protein Albumin Urine WBC (Auto) Vancomycin Trough Salicylates Acetaminophen Plasma/Serum Alcohol Crossmatch 02/29/20 02/29/20 03/01/20 18:53 23:10 06:53 WBC RBC Hgb Hct MCH RDW Plt Count Lymph % (Auto) [place] % (Auto) [place] # Baso # Seg Neutrophils % Seg Neuts % (Manual) Lymphocytes % (Manual) Monocytes % (Manual) Seg Neutrophils # Seg Neutrophils # Man Lymphocytes # (Manual) Monocytes # (Manual) Eosinophils # (Manual) Basophils # (Manual) PT INR APTT ABG pH ABG pO2 ABG HCO3 ABG O2 Saturation ABG Base Excess ABG Hemoglobin Oxyhemoglobin Sodium Potassium Chloride Carbon Dioxide BUN Creatinine Glucose POC Glucose 112 H 147 H 131 H Lactic Acid Calcium Ionized Calcium Phosphorus Magnesium Total Bilirubin AST ALT Alkaline Phosphatase Ammonia Total Creatine Kinase CK-MB (CK-2) CK-MB (CK-2) Rel Index Total Protein Albumin Urine WBC (Auto) Vancomycin Trough Salicylates Acetaminophen Plasma/Serum Alcohol Crossmatch 03/01/20 03/01/20 03/02/20 17:31 18:35 00:10 WBC RBC Hgb Hct MCH RDW Plt Count Lymph % (Auto) [place] % (Auto) [place] # Baso # Seg Neutrophils % Seg Neuts % (Manual) Lymphocytes % (Manual) Monocytes % (Manual) Seg Neutrophils # Seg Neutrophils # Man Lymphocytes # (Manual) Monocytes # (Manual) Eosinophils # (Manual) Basophils # (Manual) PT INR APTT ABG pH ABG pO2 ABG HCO3 ABG O2 Saturation ABG Base Excess ABG Hemoglobin Oxyhemoglobin Sodium Potassium Chloride Carbon Dioxide BUN Creatinine Glucose POC Glucose 61 L 129 H 117 H Lactic Acid Calcium Ionized Calcium Phosphorus Magnesium Total Bilirubin AST ALT Alkaline Phosphatase Ammonia Total Creatine Kinase CK-MB (CK-2) CK-MB (CK-2) Rel Index Total Protein Albumin Urine WBC (Auto) Vancomycin Trough Salicylates Acetaminophen Plasma/Serum Alcohol Crossmatch 03/02/20 03/02/20 03/02/20 06:56 12:02 18:42 WBC RBC Hgb Hct MCH RDW Plt Count Lymph % (Auto) [place] % (Auto) [place] # Baso # Seg Neutrophils % Seg Neuts % (Manual) Lymphocytes % (Manual) Monocytes % (Manual) Seg Neutrophils # Seg Neutrophils # Man Lymphocytes # (Manual) Monocytes # (Manual) Eosinophils # (Manual) Basophils # (Manual) PT INR APTT ABG pH ABG pO2 ABG HCO3 ABG O2 Saturation ABG Base Excess ABG Hemoglobin Oxyhemoglobin Sodium Potassium Chloride Carbon Dioxide BUN Creatinine Glucose POC Glucose 125 H 111 H 126 H Lactic Acid Calcium Ionized Calcium Phosphorus Magnesium Total Bilirubin AST ALT Alkaline Phosphatase Ammonia Total Creatine Kinase CK-MB (CK-2) CK-MB (CK-2) Rel Index Total Protein Albumin Urine WBC (Auto) Vancomycin Trough Salicylates Acetaminophen Plasma/Serum Alcohol Crossmatch 03/03/20 03/03/20 03/03/20 00:18 06:11 11:50 WBC RBC Hgb Hct MCH RDW Plt Count Lymph % (Auto) [place] % (Auto) [place] # Baso # Seg Neutrophils % Seg Neuts % (Manual) Lymphocytes % (Manual) Monocytes % (Manual) Seg Neutrophils # Seg Neutrophils # Man Lymphocytes # (Manual) Monocytes # (Manual) Eosinophils # (Manual) Basophils # (Manual) PT INR APTT ABG pH ABG pO2 ABG HCO3 ABG O2 Saturation ABG Base Excess ABG Hemoglobin Oxyhemoglobin Sodium Potassium Chloride Carbon Dioxide BUN Creatinine Glucose POC Glucose 139 H 155 H 118 H Lactic Acid Calcium Ionized Calcium Phosphorus Magnesium Total Bilirubin AST ALT Alkaline Phosphatase Ammonia Total Creatine Kinase CK-MB (CK-2) CK-MB (CK-2) Rel Index Total Protein Albumin Urine WBC (Auto) Vancomycin Trough Salicylates Acetaminophen Plasma/Serum Alcohol Crossmatch 03/03/20 03/03/20 03/04/20 18:09 23:46 05:37 WBC RBC Hgb Hct MCH RDW Plt Count Lymph % (Auto) [place] % (Auto) [place] # Baso # Seg Neutrophils % Seg Neuts % (Manual) Lymphocytes % (Manual) Monocytes % (Manual) Seg Neutrophils # Seg Neutrophils # Man Lymphocytes # (Manual) Monocytes # (Manual) Eosinophils # (Manual) Basophils # (Manual) PT INR APTT ABG pH ABG pO2 ABG HCO3 ABG O2 Saturation ABG Base Excess ABG Hemoglobin Oxyhemoglobin Sodium Potassium Chloride Carbon Dioxide BUN Creatinine Glucose POC Glucose 109 H 132 H 111 H Lactic Acid Calcium Ionized Calcium Phosphorus Magnesium Total Bilirubin AST ALT Alkaline Phosphatase Ammonia Total Creatine Kinase CK-MB (CK-2) CK-MB (CK-2) Rel Index Total Protein Albumin Urine WBC (Auto) Vancomycin Trough Salicylates Acetaminophen Plasma/Serum Alcohol Crossmatch 03/04/20 03/04/20 03/05/20 11:38 17:54 00:14 WBC RBC Hgb Hct MCH RDW Plt Count Lymph % (Auto) [place] % (Auto) [place] # Baso # Seg Neutrophils % Seg Neuts % (Manual) Lymphocytes % (Manual) Monocytes % (Manual) Seg Neutrophils # Seg Neutrophils # Man Lymphocytes # (Manual) Monocytes # (Manual) Eosinophils # (Manual) Basophils # (Manual) PT INR APTT ABG pH ABG pO2 ABG HCO3 ABG O2 Saturation ABG Base Excess ABG Hemoglobin Oxyhemoglobin Sodium Potassium Chloride Carbon Dioxide BUN Creatinine Glucose POC Glucose 138 H 118 H 134 H Lactic Acid Calcium Ionized Calcium Phosphorus Magnesium Total Bilirubin AST ALT Alkaline Phosphatase Ammonia Total Creatine Kinase CK-MB (CK-2) CK-MB (CK-2) Rel Index Total Protein Albumin Urine WBC (Auto) Vancomycin Trough Salicylates Acetaminophen Plasma/Serum Alcohol Crossmatch 03/06/20 03/06/20 03/06/20 03:37 03:37 06:29 WBC RBC Hgb Hct MCH RDW Plt Count 550 H Lymph % (Auto) [place] % (Auto) 9.1 H [place] # Baso # Seg Neutrophils % Seg Neuts % (Manual) Lymphocytes % (Manual) Monocytes % (Manual) Seg Neutrophils # Seg Neutrophils # Man Lymphocytes # (Manual) Monocytes # (Manual) Eosinophils # (Manual) Basophils # (Manual) PT INR APTT ABG pH ABG pO2 ABG HCO3 ABG O2 Saturation ABG Base Excess ABG Hemoglobin Oxyhemoglobin Sodium Potassium Chloride Carbon Dioxide BUN 26 H Creatinine 0.5 L Glucose POC Glucose 128 H Lactic Acid Calcium 10.4 H Ionized Calcium Phosphorus Magnesium Total Bilirubin AST ALT Alkaline Phosphatase Ammonia Total Creatine Kinase CK-MB (CK-2) CK-MB (CK-2) Rel Index Total Protein Albumin Urine WBC (Auto) Vancomycin Trough Salicylates Acetaminophen Plasma/Serum Alcohol Crossmatch 03/06/20 03/07/20 03/07/20 17:47 06:37 12:37 WBC RBC Hgb Hct MCH RDW Plt Count Lymph % (Auto) [place] % (Auto) [place] # Baso # Seg Neutrophils % Seg Neuts % (Manual) Lymphocytes % (Manual) Monocytes % (Manual) Seg Neutrophils # Seg Neutrophils # Man Lymphocytes # (Manual) Monocytes # (Manual) Eosinophils # (Manual) Basophils # (Manual) PT INR APTT ABG pH ABG pO2 ABG HCO3 ABG O2 Saturation ABG Base Excess ABG Hemoglobin Oxyhemoglobin Sodium Potassium Chloride Carbon Dioxide BUN Creatinine Glucose POC Glucose 120 H 113 H 118 H Lactic Acid Calcium Ionized Calcium Phosphorus Magnesium Total Bilirubin AST ALT Alkaline Phosphatase Ammonia Total Creatine Kinase CK-MB (CK-2) CK-MB (CK-2) Rel Index Total Protein Albumin Urine WBC (Auto) Vancomycin Trough Salicylates Acetaminophen Plasma/Serum Alcohol Crossmatch 03/07/20 03/08/20 03/08/20 16:41 00:55 06:25 WBC RBC Hgb Hct MCH RDW Plt Count Lymph % (Auto) [place] % (Auto) [place] # Baso # Seg Neutrophils % Seg Neuts % (Manual) Lymphocytes % (Manual) Monocytes % (Manual) Seg Neutrophils # Seg Neutrophils # Man Lymphocytes # (Manual) Monocytes # (Manual) Eosinophils # (Manual) Basophils # (Manual) PT INR APTT ABG pH ABG pO2 ABG HCO3 ABG O2 Saturation ABG Base Excess ABG Hemoglobin Oxyhemoglobin Sodium Potassium Chloride Carbon Dioxide BUN Creatinine Glucose POC Glucose 108 H 139 H 127 H Lactic Acid Calcium Ionized Calcium Phosphorus Magnesium Total Bilirubin AST ALT Alkaline Phosphatase Ammonia Total Creatine Kinase CK-MB (CK-2) CK-MB (CK-2) Rel Index Total Protein Albumin Urine WBC (Auto) Vancomycin Trough Salicylates Acetaminophen Plasma/Serum Alcohol Crossmatch 03/08/20 03/08/20 03/08/20 12:49 13:25 17:13 WBC RBC Hgb Hct MCH RDW Plt Count Lymph % (Auto) [place] % (Auto) [place] # Baso # Seg Neutrophils % Seg Neuts % (Manual) Lymphocytes % (Manual) Monocytes % (Manual) Seg Neutrophils # Seg Neutrophils # Man Lymphocytes # (Manual) Monocytes # (Manual) Eosinophils # (Manual) Basophils # (Manual) PT INR APTT ABG pH ABG pO2 71.1 L ABG HCO3 26.2 H ABG O2 Saturation ABG Base Excess ABG Hemoglobin 8.2 L Oxyhemoglobin 94.8 L Sodium Potassium Chloride Carbon Dioxide BUN Creatinine Glucose POC Glucose 127 H 147 H Lactic Acid Calcium Ionized Calcium Phosphorus Magnesium Total Bilirubin AST ALT Alkaline Phosphatase Ammonia Total Creatine Kinase CK-MB (CK-2) CK-MB (CK-2) Rel Index Total Protein Albumin Urine WBC (Auto) Vancomycin Trough Salicylates Acetaminophen Plasma/Serum Alcohol Crossmatch 03/09/20 03/09/20 03/09/20 06:28 08:36 23:58 WBC RBC Hgb Hct MCH RDW Plt Count Lymph % (Auto) [place] % (Auto) [place] # Baso # Seg Neutrophils % Seg Neuts % (Manual) Lymphocytes % (Manual) Monocytes % (Manual) Seg Neutrophils # Seg Neutrophils # Man Lymphocytes # (Manual) Monocytes # (Manual) Eosinophils # (Manual) Basophils # (Manual) PT INR APTT ABG pH ABG pO2 ABG HCO3 ABG O2 Saturation ABG Base Excess ABG Hemoglobin Oxyhemoglobin Sodium Potassium Chloride Carbon Dioxide BUN Creatinine Glucose POC Glucose 139 H 167 H 122 H Lactic Acid Calcium Ionized Calcium Phosphorus Magnesium Total Bilirubin AST ALT Alkaline Phosphatase Ammonia Total Creatine Kinase CK-MB (CK-2) CK-MB (CK-2) Rel Index Total Protein Albumin Urine WBC (Auto) Vancomycin Trough Salicylates Acetaminophen Plasma/Serum Alcohol Crossmatch 03/10/20 03/10/20 03/11/20 06:32 23:27 06:23 WBC RBC Hgb Hct MCH RDW Plt Count Lymph % (Auto) [place] % (Auto) [place] # Baso # Seg Neutrophils % Seg Neuts % (Manual) Lymphocytes % (Manual) Monocytes % (Manual) Seg Neutrophils # Seg Neutrophils # Man Lymphocytes # (Manual) Monocytes # (Manual) Eosinophils # (Manual) Basophils # (Manual) PT INR APTT ABG pH ABG pO2 ABG HCO3 ABG O2 Saturation ABG Base Excess ABG Hemoglobin Oxyhemoglobin Sodium Potassium Chloride Carbon Dioxide BUN Creatinine Glucose POC Glucose 165 H 115 H 139 H Lactic Acid Calcium Ionized Calcium Phosphorus Magnesium Total Bilirubin AST ALT Alkaline Phosphatase Ammonia Total Creatine Kinase CK-MB (CK-2) CK-MB (CK-2) Rel Index Total Protein Albumin Urine WBC (Auto) Vancomycin Trough Salicylates Acetaminophen Plasma/Serum Alcohol Crossmatch 03/11/20 03/11/20 03/12/20 12:29 18:02 04:53 WBC RBC Hgb Hct MCH RDW Plt Count 625 H Lymph % (Auto) [place] % (Auto) [place] # Baso # Seg Neutrophils % Seg Neuts % (Manual) Lymphocytes % (Manual) Monocytes % (Manual) Seg Neutrophils # Seg Neutrophils # Man Lymphocytes # (Manual) Monocytes # (Manual) Eosinophils # (Manual) Basophils # (Manual) PT INR APTT ABG pH ABG pO2 ABG HCO3 ABG O2 Saturation ABG Base Excess ABG Hemoglobin Oxyhemoglobin Sodium Potassium Chloride Carbon Dioxide BUN Creatinine Glucose POC Glucose 164 H 113 H Lactic Acid Calcium Ionized Calcium Phosphorus Magnesium Total Bilirubin AST ALT Alkaline Phosphatase Ammonia Total Creatine Kinase CK-MB (CK-2) CK-MB (CK-2) Rel Index Total Protein Albumin Urine WBC (Auto) Vancomycin Trough Salicylates Acetaminophen Plasma/Serum Alcohol Crossmatch 03/12/20 03/12/20 03/12/20 04:53 06:26 12:38 WBC RBC Hgb Hct MCH RDW Plt Count Lymph % (Auto) [place] % (Auto) [place] # Baso # Seg Neutrophils % Seg Neuts % (Manual) Lymphocytes % (Manual) Monocytes % (Manual) Seg Neutrophils # Seg Neutrophils # Man Lymphocytes # (Manual) Monocytes # (Manual) Eosinophils # (Manual) Basophils # (Manual) PT INR APTT ABG pH ABG pO2 ABG HCO3 ABG O2 Saturation ABG Base Excess ABG Hemoglobin Oxyhemoglobin Sodium Potassium 5.3 H Chloride Carbon Dioxide BUN 34 H Creatinine Glucose 159 H POC Glucose 149 H 130 H Lactic Acid Calcium 10.7 H Ionized Calcium Phosphorus Magnesium Total Bilirubin AST ALT Alkaline Phosphatase Ammonia Total Creatine Kinase CK-MB (CK-2) CK-MB (CK-2) Rel Index Total Protein Albumin Urine WBC (Auto) Vancomycin Trough Salicylates Acetaminophen Plasma/Serum Alcohol Crossmatch 03/13/20 03/13/20 03/13/20 03:50 06:12 18:11 WBC RBC Hgb Hct MCH RDW Plt Count Lymph % (Auto) [place] % (Auto) [place] # Baso # Seg Neutrophils % Seg Neuts % (Manual) Lymphocytes % (Manual) Monocytes % (Manual) Seg Neutrophils # Seg Neutrophils # Man Lymphocytes # (Manual) Monocytes # (Manual) Eosinophils # (Manual) Basophils # (Manual) PT INR APTT ABG pH ABG pO2 ABG HCO3 ABG O2 Saturation ABG Base Excess ABG Hemoglobin Oxyhemoglobin Sodium Potassium Chloride Carbon Dioxide 20 L BUN 30 H Creatinine 0.6 L Glucose 153 H POC Glucose 124 H 111 H Lactic Acid Calcium Ionized Calcium Phosphorus Magnesium Total Bilirubin AST ALT Alkaline Phosphatase Ammonia Total Creatine Kinase CK-MB (CK-2) CK-MB (CK-2) Rel Index Total Protein Albumin Urine WBC (Auto) Vancomycin Trough Salicylates Acetaminophen Plasma/Serum Alcohol Crossmatch 03/14/20 03/14/20 03/15/20 12:01 15:40 00:02 WBC RBC Hgb Hct MCH RDW Plt Count Lymph % (Auto) [place] % (Auto) [place] # Baso # Seg Neutrophils % Seg Neuts % (Manual) Lymphocytes % (Manual) Monocytes % (Manual) Seg Neutrophils # Seg Neutrophils # Man Lymphocytes # (Manual) Monocytes # (Manual) Eosinophils # (Manual) Basophils # (Manual) PT INR APTT ABG pH ABG pO2 ABG HCO3 ABG O2 Saturation ABG Base Excess ABG Hemoglobin Oxyhemoglobin Sodium Potassium Chloride Carbon Dioxide BUN Creatinine Glucose POC Glucose 116 H 125 H 143 H Lactic Acid Calcium Ionized Calcium Phosphorus Magnesium Total Bilirubin AST ALT Alkaline Phosphatase Ammonia Total Creatine Kinase CK-MB (CK-2) CK-MB (CK-2) Rel Index Total Protein Albumin Urine WBC (Auto) Vancomycin Trough Salicylates Acetaminophen Plasma/Serum Alcohol Crossmatch 03/15/20 03/15/20 03/16/20 12:03 18:14 12:14 WBC RBC Hgb Hct MCH RDW Plt Count Lymph % (Auto) [place] % (Auto) [place] # Baso # Seg Neutrophils % Seg Neuts % (Manual) Lymphocytes % (Manual) Monocytes % (Manual) Seg Neutrophils # Seg Neutrophils # Man Lymphocytes # (Manual) Monocytes # (Manual) Eosinophils # (Manual) Basophils # (Manual) PT INR APTT ABG pH ABG pO2 ABG HCO3 ABG O2 Saturation ABG Base Excess ABG Hemoglobin Oxyhemoglobin Sodium Potassium Chloride Carbon Dioxide BUN Creatinine Glucose POC Glucose 106 H 107 H 107 H Lactic Acid Calcium Ionized Calcium Phosphorus Magnesium Total Bilirubin AST ALT Alkaline Phosphatase Ammonia Total Creatine Kinase CK-MB (CK-2) CK-MB (CK-2) Rel Index Total Protein Albumin Urine WBC (Auto) Vancomycin Trough Salicylates Acetaminophen Plasma/Serum Alcohol Crossmatch 03/16/20 03/17/20 03/17/20 18:30 05:44 12:09 WBC RBC Hgb Hct MCH RDW Plt Count Lymph % (Auto) [place] % (Auto) [place] # Baso # Seg Neutrophils % Seg Neuts % (Manual) Lymphocytes % (Manual) Monocytes % (Manual) Seg Neutrophils # Seg Neutrophils # Man Lymphocytes # (Manual) Monocytes # (Manual) Eosinophils # (Manual) Basophils # (Manual) PT INR APTT ABG pH ABG pO2 ABG HCO3 ABG O2 Saturation ABG Base Excess ABG Hemoglobin Oxyhemoglobin Sodium Potassium Chloride Carbon Dioxide BUN Creatinine Glucose POC Glucose 128 H 114 H 120 H Lactic Acid Calcium Ionized Calcium Phosphorus Magnesium Total Bilirubin AST ALT Alkaline Phosphatase Ammonia Total Creatine Kinase CK-MB (CK-2) CK-MB (CK-2) Rel Index Total Protein Albumin Urine WBC (Auto) Vancomycin Trough Salicylates Acetaminophen Plasma/Serum Alcohol Crossmatch 03/17/20 03/17/20 03/18/20 16:51 23:36 07:07 WBC RBC Hgb Hct MCH RDW Plt Count Lymph % (Auto) [place] % (Auto) [place] # Baso # Seg Neutrophils % Seg Neuts % (Manual) Lymphocytes % (Manual) Monocytes % (Manual) Seg Neutrophils # Seg Neutrophils # Man Lymphocytes # (Manual) Monocytes # (Manual) Eosinophils # (Manual) Basophils # (Manual) PT INR APTT ABG pH ABG pO2 ABG HCO3 ABG O2 Saturation ABG Base Excess ABG Hemoglobin Oxyhemoglobin Sodium Potassium Chloride Carbon Dioxide BUN Creatinine Glucose POC Glucose 108 H 145 H 116 H Lactic Acid Calcium Ionized Calcium Phosphorus Magnesium Total Bilirubin AST ALT Alkaline Phosphatase Ammonia Total Creatine Kinase CK-MB (CK-2) CK-MB (CK-2) Rel Index Total Protein Albumin Urine WBC (Auto) Vancomycin Trough Salicylates Acetaminophen Plasma/Serum Alcohol Crossmatch 03/18/20 03/19/20 03/19/20 18:11 06:09 11:49 WBC RBC Hgb Hct MCH RDW Plt Count Lymph % (Auto) [place] % (Auto) [place] # Baso # Seg Neutrophils % Seg Neuts % (Manual) Lymphocytes % (Manual) Monocytes % (Manual) Seg Neutrophils # Seg Neutrophils # Man Lymphocytes # (Manual) Monocytes # (Manual) Eosinophils # (Manual) Basophils # (Manual) PT INR APTT ABG pH ABG pO2 ABG HCO3 ABG O2 Saturation ABG Base Excess ABG Hemoglobin Oxyhemoglobin Sodium Potassium Chloride Carbon Dioxide BUN Creatinine Glucose POC Glucose 106 H 160 H 145 H Lactic Acid Calcium Ionized Calcium Phosphorus Magnesium Total Bilirubin AST ALT Alkaline Phosphatase Ammonia Total Creatine Kinase CK-MB (CK-2) CK-MB (CK-2) Rel Index Total Protein Albumin Urine WBC (Auto) Vancomycin Trough Salicylates Acetaminophen Plasma/Serum Alcohol Crossmatch 03/20/20 03/20/20 03/20/20 01:01 06:14 12:52 WBC RBC Hgb Hct MCH RDW Plt Count Lymph % (Auto) [place] % (Auto) [place] # Baso # Seg Neutrophils % Seg Neuts % (Manual) Lymphocytes % (Manual) Monocytes % (Manual) Seg Neutrophils # Seg Neutrophils # Man Lymphocytes # (Manual) Monocytes # (Manual) Eosinophils # (Manual) Basophils # (Manual) PT INR APTT ABG pH ABG pO2 ABG HCO3 ABG O2 Saturation ABG Base Excess ABG Hemoglobin Oxyhemoglobin Sodium Potassium Chloride Carbon Dioxide BUN Creatinine Glucose POC Glucose 109 H 122 H 106 H Lactic Acid Calcium Ionized Calcium Phosphorus Magnesium Total Bilirubin AST ALT Alkaline Phosphatase Ammonia Total Creatine Kinase CK-MB (CK-2) CK-MB (CK-2) Rel Index Total Protein Albumin Urine WBC (Auto) Vancomycin Trough Salicylates Acetaminophen Plasma/Serum Alcohol Crossmatch 03/20/20 03/21/20 03/21/20 18:56 00:18 05:21 WBC RBC Hgb Hct MCH RDW Plt Count Lymph % (Auto) [place] % (Auto) [place] # Baso # Seg Neutrophils % Seg Neuts % (Manual) Lymphocytes % (Manual) Monocytes % (Manual) Seg Neutrophils # Seg Neutrophils # Man Lymphocytes # (Manual) Monocytes # (Manual) Eosinophils # (Manual) Basophils # (Manual) PT INR APTT ABG pH ABG pO2 ABG HCO3 ABG O2 Saturation ABG Base Excess ABG Hemoglobin Oxyhemoglobin Sodium Potassium Chloride Carbon Dioxide BUN Creatinine Glucose POC Glucose 110 H 140 H 112 H Lactic Acid Calcium Ionized Calcium Phosphorus Magnesium Total Bilirubin AST ALT Alkaline Phosphatase Ammonia Total Creatine Kinase CK-MB (CK-2) CK-MB (CK-2) Rel Index Total Protein Albumin Urine WBC (Auto) Vancomycin Trough Salicylates Acetaminophen Plasma/Serum Alcohol Crossmatch 03/21/20 03/22/20 03/22/20 17:15 01:14 12:08 WBC RBC Hgb Hct MCH RDW Plt Count Lymph % (Auto) [place] % (Auto) [place] # Baso # Seg Neutrophils % Seg Neuts % (Manual) Lymphocytes % (Manual) Monocytes % (Manual) Seg Neutrophils # Seg Neutrophils # Man Lymphocytes # (Manual) Monocytes # (Manual) Eosinophils # (Manual) Basophils # (Manual) PT INR APTT ABG pH ABG pO2 ABG HCO3 ABG O2 Saturation ABG Base Excess ABG Hemoglobin Oxyhemoglobin Sodium Potassium Chloride Carbon Dioxide BUN Creatinine Glucose POC Glucose 158 H 157 H 133 H Lactic Acid Calcium Ionized Calcium Phosphorus Magnesium Total Bilirubin AST ALT Alkaline Phosphatase Ammonia Total Creatine Kinase CK-MB (CK-2) CK-MB (CK-2) Rel Index Total Protein Albumin Urine WBC (Auto) Vancomycin Trough Salicylates Acetaminophen Plasma/Serum Alcohol Crossmatch 03/22/20 03/23/20 03/23/20 16:48 01:00 06:54 WBC RBC Hgb Hct MCH RDW Plt Count Lymph % (Auto) [place] % (Auto) [place] # Baso # Seg Neutrophils % Seg Neuts % (Manual) Lymphocytes % (Manual) Monocytes % (Manual) Seg Neutrophils # Seg Neutrophils # Man Lymphocytes # (Manual) Monocytes # (Manual) Eosinophils # (Manual) Basophils # (Manual) PT INR APTT ABG pH ABG pO2 ABG HCO3 ABG O2 Saturation ABG Base Excess ABG Hemoglobin Oxyhemoglobin Sodium Potassium Chloride Carbon Dioxide BUN Creatinine Glucose POC Glucose 111 H 153 H 129 H Lactic Acid Calcium Ionized Calcium Phosphorus Magnesium Total Bilirubin AST ALT Alkaline Phosphatase Ammonia Total Creatine Kinase CK-MB (CK-2) CK-MB (CK-2) Rel Index Total Protein Albumin Urine WBC (Auto) Vancomycin Trough Salicylates Acetaminophen Plasma/Serum Alcohol Crossmatch 03/23/20 03/23/20 03/23/20 12:08 15:54 23:20 WBC RBC Hgb Hct MCH RDW Plt Count Lymph % (Auto) [place] % (Auto) [place] # Baso # Seg Neutrophils % Seg Neuts % (Manual) Lymphocytes % (Manual) Monocytes % (Manual) Seg Neutrophils # Seg Neutrophils # Man Lymphocytes # (Manual) Monocytes # (Manual) Eosinophils # (Manual) Basophils # (Manual) PT INR APTT ABG pH ABG pO2 ABG HCO3 ABG O2 Saturation ABG Base Excess ABG Hemoglobin Oxyhemoglobin Sodium Potassium Chloride Carbon Dioxide BUN Creatinine Glucose POC Glucose 126 H 142 H 115 H Lactic Acid Calcium Ionized Calcium Phosphorus Magnesium Total Bilirubin AST ALT Alkaline Phosphatase Ammonia Total Creatine Kinase CK-MB (CK-2) CK-MB (CK-2) Rel Index Total Protein Albumin Urine WBC (Auto) Vancomycin Trough Salicylates Acetaminophen Plasma/Serum Alcohol Crossmatch 03/24/20 03/24/20 03/24/20 06:33 12:19 16:46 WBC RBC Hgb Hct MCH RDW Plt Count Lymph % (Auto) [place] % (Auto) [place] # Baso # Seg Neutrophils % Seg Neuts % (Manual) Lymphocytes % (Manual) Monocytes % (Manual) Seg Neutrophils # Seg Neutrophils # Man Lymphocytes # (Manual) Monocytes # (Manual) Eosinophils # (Manual) Basophils # (Manual) PT INR APTT ABG pH ABG pO2 ABG HCO3 ABG O2 Saturation ABG Base Excess ABG Hemoglobin Oxyhemoglobin Sodium Potassium Chloride Carbon Dioxide BUN Creatinine Glucose POC Glucose 122 H 156 H 140 H Lactic Acid Calcium Ionized Calcium Phosphorus Magnesium Total Bilirubin AST ALT Alkaline Phosphatase Ammonia Total Creatine Kinase CK-MB (CK-2) CK-MB (CK-2) Rel Index Total Protein Albumin Urine WBC (Auto) Vancomycin Trough Salicylates Acetaminophen Plasma/Serum Alcohol Crossmatch 03/24/20 03/25/20 03/25/20 23:56 04:28 06:45 WBC RBC Hgb Hct MCH RDW Plt Count Lymph % (Auto) [place] % (Auto) [place] # Baso # Seg Neutrophils % Seg Neuts % (Manual) Lymphocytes % (Manual) Monocytes % (Manual) Seg Neutrophils # Seg Neutrophils # Man Lymphocytes # (Manual) Monocytes # (Manual) Eosinophils # (Manual) Basophils # (Manual) PT INR APTT ABG pH ABG pO2 ABG HCO3 ABG O2 Saturation ABG Base Excess ABG Hemoglobin Oxyhemoglobin Sodium Potassium Chloride Carbon Dioxide BUN 23 H Creatinine 0.5 L Glucose 121 H POC Glucose 127 H 130 H Lactic Acid Calcium 10.3 H Ionized Calcium Phosphorus Magnesium Total Bilirubin AST ALT Alkaline Phosphatase Ammonia Total Creatine Kinase CK-MB (CK-2) CK-MB (CK-2) Rel Index Total Protein Albumin Urine WBC (Auto) Vancomycin Trough Salicylates Acetaminophen Plasma/Serum Alcohol Crossmatch 03/25/20 03/25/20 03/26/20 12:50 15:57 05:39 WBC RBC Hgb Hct MCH RDW Plt Count Lymph % (Auto) [place] % (Auto) [place] # Baso # Seg Neutrophils % Seg Neuts % (Manual) Lymphocytes % (Manual) Monocytes % (Manual) Seg Neutrophils # Seg Neutrophils # Man Lymphocytes # (Manual) Monocytes # (Manual) Eosinophils # (Manual) Basophils # (Manual) PT INR APTT ABG pH ABG pO2 ABG HCO3 ABG O2 Saturation ABG Base Excess ABG Hemoglobin Oxyhemoglobin Sodium Potassium Chloride Carbon Dioxide BUN Creatinine Glucose POC Glucose 145 H 118 H 136 H Lactic Acid Calcium Ionized Calcium Phosphorus Magnesium Total Bilirubin AST ALT Alkaline Phosphatase Ammonia Total Creatine Kinase CK-MB (CK-2) CK-MB (CK-2) Rel Index Total Protein Albumin Urine WBC (Auto) Vancomycin Trough Salicylates Acetaminophen Plasma/Serum Alcohol Crossmatch 03/26/20 03/26/20 03/27/20 16:04 23:17 11:31 WBC RBC Hgb Hct MCH RDW Plt Count Lymph % (Auto) [place] % (Auto) [place] # Baso # Seg Neutrophils % Seg Neuts % (Manual) Lymphocytes % (Manual) Monocytes % (Manual) Seg Neutrophils # Seg Neutrophils # Man Lymphocytes # (Manual) Monocytes # (Manual) Eosinophils # (Manual) Basophils # (Manual) PT INR APTT ABG pH ABG pO2 ABG HCO3 ABG O2 Saturation ABG Base Excess ABG Hemoglobin Oxyhemoglobin Sodium Potassium Chloride Carbon Dioxide BUN Creatinine Glucose POC Glucose 157 H 157 H 121 H Lactic Acid Calcium Ionized Calcium Phosphorus Magnesium Total Bilirubin AST ALT Alkaline Phosphatase Ammonia Total Creatine Kinase CK-MB (CK-2) CK-MB (CK-2) Rel Index Total Protein Albumin Urine WBC (Auto) Vancomycin Trough Salicylates Acetaminophen Plasma/Serum Alcohol Crossmatch 03/27/20 03/28/20 03/28/20 16:33 01:55 12:12 WBC RBC Hgb Hct MCH RDW Plt Count Lymph % (Auto) [place] % (Auto) [place] # Baso # Seg Neutrophils % Seg Neuts % (Manual) Lymphocytes % (Manual) Monocytes % (Manual) Seg Neutrophils # Seg Neutrophils # Man Lymphocytes # (Manual) Monocytes # (Manual) Eosinophils # (Manual) Basophils # (Manual) PT INR APTT ABG pH ABG pO2 ABG HCO3 ABG O2 Saturation ABG Base Excess ABG Hemoglobin Oxyhemoglobin Sodium Potassium Chloride Carbon Dioxide BUN Creatinine Glucose POC Glucose 126 H 106 H 116 H Lactic Acid Calcium Ionized Calcium Phosphorus Magnesium Total Bilirubin AST ALT Alkaline Phosphatase Ammonia Total Creatine Kinase CK-MB (CK-2) CK-MB (CK-2) Rel Index Total Protein Albumin Urine WBC (Auto) Vancomycin Trough Salicylates Acetaminophen Plasma/Serum Alcohol Crossmatch 03/28/20 03/29/20 03/29/20 17:57 06:41 16:48 WBC RBC Hgb Hct MCH RDW Plt Count Lymph % (Auto) [place] % (Auto) [place] # Baso # Seg Neutrophils % Seg Neuts % (Manual) Lymphocytes % (Manual) Monocytes % (Manual) Seg Neutrophils # Seg Neutrophils # Man Lymphocytes # (Manual) Monocytes # (Manual) Eosinophils # (Manual) Basophils # (Manual) PT INR APTT ABG pH ABG pO2 ABG HCO3 ABG O2 Saturation ABG Base Excess ABG Hemoglobin Oxyhemoglobin Sodium Potassium Chloride Carbon Dioxide BUN Creatinine Glucose POC Glucose 138 H 154 H 136 H Lactic Acid Calcium Ionized Calcium Phosphorus Magnesium Total Bilirubin AST ALT Alkaline Phosphatase Ammonia Total Creatine Kinase CK-MB (CK-2) CK-MB (CK-2) Rel Index Total Protein Albumin Urine WBC (Auto) Vancomycin Trough Salicylates Acetaminophen Plasma/Serum Alcohol Crossmatch 03/30/20 03/30/20 03/31/20 05:44 12:16 16:37 WBC RBC Hgb Hct MCH RDW Plt Count Lymph % (Auto) [place] % (Auto) [place] # Baso # Seg Neutrophils % Seg Neuts % (Manual) Lymphocytes % (Manual) Monocytes % (Manual) Seg Neutrophils # Seg Neutrophils # Man Lymphocytes # (Manual) Monocytes # (Manual) Eosinophils # (Manual) Basophils # (Manual) PT INR APTT ABG pH ABG pO2 ABG HCO3 ABG O2 Saturation ABG Base Excess ABG Hemoglobin Oxyhemoglobin Sodium Potassium Chloride Carbon Dioxide BUN Creatinine Glucose POC Glucose 110 H 122 H 128 H Lactic Acid Calcium Ionized Calcium Phosphorus Magnesium Total Bilirubin AST ALT Alkaline Phosphatase Ammonia Total Creatine Kinase CK-MB (CK-2) CK-MB (CK-2) Rel Index Total Protein Albumin Urine WBC (Auto) Vancomycin Trough Salicylates Acetaminophen Plasma/Serum Alcohol Crossmatch 04/01/20 04/02/20 04/02/20 22:51 11:38 16:35 WBC RBC Hgb Hct MCH RDW Plt Count Lymph % (Auto) [place] % (Auto) [place] # Baso # Seg Neutrophils % Seg Neuts % (Manual) Lymphocytes % (Manual) Monocytes % (Manual) Seg Neutrophils # Seg Neutrophils # Man Lymphocytes # (Manual) Monocytes # (Manual) Eosinophils # (Manual) Basophils # (Manual) PT INR APTT ABG pH ABG pO2 ABG HCO3 ABG O2 Saturation ABG Base Excess ABG Hemoglobin Oxyhemoglobin Sodium Potassium Chloride Carbon Dioxide BUN Creatinine Glucose POC Glucose 132 H 128 H 108 H Lactic Acid Calcium Ionized Calcium Phosphorus Magnesium Total Bilirubin AST ALT Alkaline Phosphatase Ammonia Total Creatine Kinase CK-MB (CK-2) CK-MB (CK-2) Rel Index Total Protein Albumin Urine WBC (Auto) Vancomycin Trough Salicylates Acetaminophen Plasma/Serum Alcohol Crossmatch 04/05/20 04/11/20 04/11/20 00:16 12:27 15:54 WBC RBC Hgb Hct MCH RDW Plt Count Lymph % (Auto) [place] % (Auto) [place] # Baso # Seg Neutrophils % Seg Neuts % (Manual) Lymphocytes % (Manual) Monocytes % (Manual) Seg Neutrophils # Seg Neutrophils # Man Lymphocytes # (Manual) Monocytes # (Manual) Eosinophils # (Manual) Basophils # (Manual) PT INR APTT ABG pH ABG pO2 ABG HCO3 ABG O2 Saturation ABG Base Excess ABG Hemoglobin Oxyhemoglobin Sodium Potassium Chloride Carbon Dioxide BUN Creatinine Glucose POC Glucose 117 H 123 H 114 H Lactic Acid Calcium Ionized Calcium Phosphorus Magnesium Total Bilirubin AST ALT Alkaline Phosphatase Ammonia Total Creatine Kinase CK-MB (CK-2) CK-MB (CK-2) Rel Index Total Protein Albumin Urine WBC (Auto) Vancomycin Trough Salicylates Acetaminophen Plasma/Serum Alcohol Crossmatch 04/11/20 04/13/20 04/16/20 21:55 16:39 05:00 WBC RBC Hgb Hct MCH RDW Plt Count Lymph % (Auto) [place] % (Auto) [place] # Baso # Seg Neutrophils % Seg Neuts % (Manual) Lymphocytes % (Manual) Monocytes % (Manual) Seg Neutrophils # Seg Neutrophils # Man Lymphocytes # (Manual) Monocytes # (Manual) Eosinophils # (Manual) Basophils # (Manual) PT INR APTT ABG pH ABG pO2 ABG HCO3 ABG O2 Saturation ABG Base Excess ABG Hemoglobin Oxyhemoglobin Sodium Potassium 3.2 L Chloride 107.4 H Carbon Dioxide BUN Creatinine 0.4 L Glucose POC Glucose 126 H 112 H Lactic Acid Calcium Ionized Calcium Phosphorus Magnesium Total Bilirubin AST ALT Alkaline Phosphatase Ammonia Total Creatine Kinase CK-MB (CK-2) CK-MB (CK-2) Rel Index Total Protein Albumin Urine WBC (Auto) Vancomycin Trough Salicylates Acetaminophen Plasma/Serum Alcohol Crossmatch 04/16/20 04/24/20 05/01/20 09:02 18:35 07:57 WBC RBC Hgb Hct MCH RDW Plt Count 502 H 498 H Lymph % (Auto) [place] % (Auto) 7.4 H [place] # Baso # Seg Neutrophils % Seg Neuts % (Manual) Lymphocytes % (Manual) Monocytes % (Manual) Seg Neutrophils # Seg Neutrophils # Man Lymphocytes # (Manual) Monocytes # (Manual) Eosinophils # (Manual) Basophils # (Manual) PT INR APTT ABG pH ABG pO2 ABG HCO3 ABG O2 Saturation ABG Base Excess ABG Hemoglobin Oxyhemoglobin Sodium Potassium Chloride Carbon Dioxide BUN Creatinine Glucose POC Glucose 172 H Lactic Acid Calcium Ionized Calcium Phosphorus Magnesium Total Bilirubin AST ALT Alkaline Phosphatase Ammonia Total Creatine Kinase CK-MB (CK-2) CK-MB (CK-2) Rel Index Total Protein Albumin Urine WBC (Auto) Vancomycin Trough Salicylates Acetaminophen Plasma/Serum Alcohol Crossmatch 05/01/20 07:57 WBC RBC Hgb Hct MCH RDW Plt Count Lymph % (Auto) [place] % (Auto) [place] # Baso # Seg Neutrophils % Seg Neuts % (Manual) Lymphocytes % (Manual) Monocytes % (Manual) Seg Neutrophils # Seg Neutrophils # Man Lymphocytes # (Manual) Monocytes # (Manual) Eosinophils # (Manual) Basophils # (Manual) PT INR APTT ABG pH ABG pO2 ABG HCO3 ABG O2 Saturation ABG Base Excess ABG Hemoglobin Oxyhemoglobin Sodium Potassium Chloride Carbon Dioxide BUN 21 H Creatinine Glucose POC Glucose Lactic Acid Calcium 10.6 H Ionized Calcium Phosphorus Magnesium Total Bilirubin AST ALT Alkaline Phosphatase Ammonia Total Creatine Kinase CK-MB (CK-2) CK-MB (CK-2) Rel Index Total Protein Albumin Urine WBC (Auto) Vancomycin Trough Salicylates Acetaminophen Plasma/Serum Alcohol Crossmatch Allied health notes reviewed: RT
[2020-05-05] MEDS: hydrOXYzine PAMOATE 25 MG CAP PO SCH ×2 (14:29→21:43)
[2020-05-05] MEDS: ENOXAPARIN 40 MG/0.4 ML INJ SUB-Q SCH (21:42)
--- NOTE | 2020-05-06 15:24 | Progress Note ---
Assessment and Plan / Anoxic brain injury: suspected CT head: No acute abnormality. EEG ordered showed Generalized slowing. No seizures or epileptiform activity. -Patient now opening her eyes, can speak and able to follow command - as needed haldol for agitation /Acute Respiratory failure - due to MSSA PNA -s/p intubation, s/p trach and PEG on 12/12 with mechanical ventilation, s/p T- piece, now on RA - CTA was done and negative for PE, - Echo quality is poor, showed diastolic dysfunction /Anemia, microcytic - Status post 3 units PRBC transfusion, H&H low stable /Acute metabolic encephalopathy/toxic encephalopathy due to the above - cont supportive care /Hyperammonemia - likely from liver disease related to EtOH abuse - Patient had elevated ammonia level and treated with lactulose /Metabolic Acidosis -Alcohol ketoacidosis vs hypoprofusion -Continue to monitor /ELevated LFTs, stable now - due to ischemic hepatitis. /Leucocytosis with sepsis - Source MRSA bacteremia and MSSA pneumonia. UA showed pyuria. RUQ US showed no ascites. - Repeat TTE negative for vegetation. Completed 7 days of Ceftriaxone on 11/29/2019. -Treated with Abx vancomycin 1 gm IV q 12 hour total 2 week till 12/30/2019 /MSSA pneumonia: Status post vancomycin till 12/30/2019 /ALcohol USe Disorder - given ongoing Alcohol use almost daily, s/p IV Thiamine - monitor /Severe hypokalemia -Repleted /Seizure disorder: treat with Keppra /H. Influenzae, tracheobronchitis, treated with abx /Moderate to severe fecal impaction - will add stool softner DNR CODE STATUS Disposition: prognosis guarded. Family okay for DNR, PT recommended subacute rehab, discharge pending on placement. negative for COVID 19 Brief History: 54-year-old female with a past medical history of Hypertension, Depression, Tobacco use Disorder, Alcohol use Disorder as confirmed by Daughter and pt's mother presents to the hospital status post cardiac arrest at home. EMS found pt in [place]. They were unable to intubate patient with a ET tube because she was clenching down therefore Joe airway placed. Per the ED physician who evaluated pt, Patient presented with a pulse, intermittent respirations, and bagging support via Joe airway with O2 sat of 100%. Accu-Chek of 71 obtained by EMS. She was intubated in the ER and called for admission. Following admission patient was diagnosed with anoxic brain injury, sepsis with MRSA bacteremia and MSSA pneumonia, alcoholic liver disease. Family member initially wished for full code then changed to DNR, patient treated with IV antibiotics for sepsis, status post trach and PEG on 12/13/19. Weaned off from the vent and put on T- piece. Patient is uninsured, waiting for placement, guarded prognosis. Physical exam: General appearance: Present: other (elderly female, open eyes) - EENT Eyes: no scleral icterus, no conjunctival injection, pupil not reactive ENT: clear oral mucosa, dentition normal, no oropharyngeal erythema Ears: bilateral: normal - Neck Neck: trach on place - Respiratory Respiratory effort: other (on T-piece) Respiratory: bilateral: rales - Cardiovascular Rhythm: regular Heart Sounds: Present: S1 & S2. Absent: gallop, rub Extremities: pulses intact, No edema, normal color - Gastrointestinal General gastrointestinal: Present: soft, non-tender, non-distended, normal bowel sounds - Integumentary Integumentary: clear, warm, dry - Musculoskeletal Musculoskeletal: No joint swelling or tenderness - Neurologic Neurologic: other (2+ reflexes throughout). respond to commend and nods head. generalized weakness, verbal - Psychiatric Psychiatric: co-operative Subjective Date of service: 05/06/20 Principal diagnosis: Ac cardiopulmonary arrest; Ac hypoxemic resp failure; Acute encephalopathy Interval history: Patient seen and examined medical records reviewed Patient is alert and awake not in acute distress Vital signs noted discharge pending on placement, remains on restraint Objective - Exam Narrative Exam: General appearance: Present: elderly female, open eyes) - EENT Eyes: no scleral icterus, no conjunctival injection, pupil not reactive ENT: clear oral mucosa, dentition normal, no oropharyngeal erythema Ears: bilateral: normal - Neck Neck: trach on place - Respiratory Respiratory effort: normal Respiratory: bilateral: rales - Cardiovascular Rhythm: regular Heart Sounds: Present: S1 & S2. Absent: gallop, rub Extremities: pulses intact, No edema, normal color - Gastrointestinal General gastrointestinal: Present: soft, non-tender, non-distended, normal bowel sounds - Integumentary Integumentary: clear, warm, dry - Musculoskeletal Musculoskeletal: does not respond to commend - Neurologic Neurologic: follow commands or move extremities - Psychiatric Psychiatric: no appropriate mood/affect, no intact judgment & insight, no memory intact- confused - Constitutional Vitals: Vital Signs - 12hr 05/06/20 05/06/20 05/06/20 03:45 07:57 11:47 Temperature 98.1 F 97.9 F 96.8 F L Pulse Rate 53 L 87 103 H Respiratory 16 18 18 Rate Blood Pressure 156/100 165/91 119/80 O2 Sat by Pulse 81 L 98 100 Oximetry - Labs CBC & Chem 7: 05/01/20 07:57 05/01/20 07:57 HEART Score - HEART Score Troponin: Troponin T < 0.010 ng/mL (0.00-0.029) 11/22/19 23:27
[2020-05-06] MEDS: levETIRAcetam 500 MG/5 ML ORAL LIQD PO SCH ×2 (18:48→22:18)
[2020-05-06] MEDS: SERTRALINE 50 MG TAB PO SCH (18:48)
[2020-05-06] MEDS: NICOTINE 21 MG/24 HR PATCH TD SCH (18:49)
[2020-05-06] MEDS: FOLIC ACID 1 MG TAB PO SCH (18:49)
[2020-05-06] MEDS: MIRTAZAPINE 30 MG TAB PO SCH (18:52)
[2020-05-06] MEDS: LANSOPRAZOLE 30 MG SOLUTAB FEEDTUBE SCH (18:52)
[2020-05-06] MEDS: hydrOXYzine PAMOATE 25 MG CAP PO SCH ×2 (18:53→22:18)
[2020-05-06] MEDS: ENOXAPARIN 40 MG/0.4 ML INJ SUB-Q SCH (22:18)
[2020-05-07] MEDS: SERTRALINE 50 MG TAB PO SCH (12:12)
[2020-05-07] MEDS: MIRTAZAPINE 30 MG TAB PO SCH (12:12)
[2020-05-07] MEDS: levETIRAcetam 500 MG/5 ML ORAL LIQD PO SCH ×2 (12:12→21:57)
[2020-05-07] MEDS: LANSOPRAZOLE 30 MG SOLUTAB FEEDTUBE SCH (12:12)
[2020-05-07] MEDS: FOLIC ACID 1 MG TAB PO SCH (12:12)
[2020-05-07] MEDS: hydrOXYzine PAMOATE 25 MG CAP PO SCH ×2 (12:12→21:57)
[2020-05-07] MEDS: NICOTINE 21 MG/24 HR PATCH TD SCH (12:13)
--- NOTE | 2020-05-07 13:32 | Progress Note ---
Assessment and Plan Patient awake. Resting on room air. Not using her O2. O2 saturation reported 100%. Recommend to use O2 all the time. Continue physical therapy. Since patient relatively stable from pulmonary point of view. Signing off the case. If any pulmonary help needed, Do not hesitate to call us back. - Patient Problems (1) Acute respiratory failure Current Visit: Yes Status: Acute Qualifiers: Respiratory failure complication: hypoxia Qualified Code(s): J96.01 - Acute respiratory failure with hypoxia Plan to address problem: Patient decanulated . Recommend O2 2 litres via nasal canula. Aspiration precautions. Continue albuterol/atrovent aerosol treatments q 6 hours. Continue Physical therapy. (2) Alcohol abuse Current Visit: Yes Status: Acute Plan to address problem: Management as per primary care. (3) Cardiac arrest with successful resuscitation Current Visit: Yes Status: Acute Plan to address problem: Patient successfully resucitated. S/P tracheostomy, Decanulated. Recommend O2 2 litres via nasal canula. (4) Increased ammonia level Current Visit: Yes Status: Acute Plan to address problem: Management as per primary care. Subjective Date of service: 05/07/20 Principal diagnosis: Ac cardiopulmonary arrest; Ac hypoxemic resp failure; Acute encephalopathy Interval history: Patient awake. Resting on room air. Not using her O2. O2 saturation reported 100%. Recommend to use O2 all the time. Continue physical therapy. Since patient relatively stable from pulmonary point of view. Signing off the case. If any pulmonary help needed, Do not hesitate to call us back. Objective Vital Signs - 12hr 05/07/20 05/07/20 05/07/20 04:26 09:44 10:03 Temperature 97.4 F L 97.9 F Pulse Rate 105 H 86 Respiratory 20 18 Rate Blood Pressure 124/88 164/94 O2 Sat by Pulse 100 97 100 Oximetry Constitutional: no acute distress, alert Eyes: non-icteric ENT: oropharynx moist Neck: supple, no lymphadenopathy, no JVD Effort: normal Ascultation: Bilateral: diminished breath sounds, rhonchi, other (Prolonged expiratory phase.) Percussion: Bilateral: not dull Cardiovascular: regular rate and rhythm (tachycardia), other (S1,S2) Gastrointestinal: normoactive bowel sounds, soft, non-tender, non-distended Integumentary: normal Extremities: no cyanosis, no edema, pulses normal, no ischemia or petechiae Neurologic: normal mental status, non-focal exam (moves all extremities), pupils equal and round, motor strength normal and Psychiatric: mood appropriate CBC and BMP: 05/01/20 07:57 05/01/20 07:57 ABG, PT/INR, D-dimer: ABG ABG pH 7.433 pH Units (7.350-7.450) 03/08/20 13:25 ABG pCO2 40.2 mm Hg 03/08/20 13:25 ABG pO2 71.1 mm Hg (80.0-90.0) L 03/08/20 13:25 ABG O2 Saturation 97.0 % (95.0-99.0) 03/08/20 13:25 PT/INR, D-dimer PT 17.0 Sec. (12.2-14.9) H 11/23/19 03:47 INR 1.36 (0.87-1.13) H 11/23/19 03:47 Abnormal lab findings: Abnormal Labs 11/22/19 11/22/19 11/22/19 23:17 23:18 23:27 WBC 21.2 H RBC 3.59 L Hgb 9.8 L Hct MCH 27 L RDW 18.6 H Plt Count 454 H Lymph % (Auto) [place] % (Auto) [place] # Baso # Seg Neutrophils % Seg Neuts % (Manual) 86.0 H Lymphocytes % (Manual) 9.0 L Monocytes % (Manual) Seg Neutrophils # Seg Neutrophils # Man 18.2 H Lymphocytes # (Manual) Monocytes # (Manual) 1.1 H Eosinophils # (Manual) Basophils # (Manual) PT INR APTT ABG pH ABG pO2 ABG HCO3 ABG O2 Saturation ABG Base Excess ABG Hemoglobin Oxyhemoglobin Sodium Potassium Chloride Carbon Dioxide BUN Creatinine Glucose POC Glucose 53 L Lactic Acid Calcium Ionized Calcium Phosphorus Magnesium Total Bilirubin AST ALT Alkaline Phosphatase Ammonia Total Creatine Kinase CK-MB (CK-2) CK-MB (CK-2) Rel Index Total Protein Albumin Urine WBC (Auto) 40.0 H Vancomycin Trough Salicylates Acetaminophen Plasma/Serum Alcohol Crossmatch 11/22/19 11/22/19 11/22/19 23:27 23:27 23:27 WBC RBC Hgb Hct MCH RDW Plt Count Lymph % (Auto) [place] % (Auto) [place] # Baso # Seg Neutrophils % Seg Neuts % (Manual) Lymphocytes % (Manual) Monocytes % (Manual) Seg Neutrophils # Seg Neutrophils # Man Lymphocytes # (Manual) Monocytes # (Manual) Eosinophils # (Manual) Basophils # (Manual) PT INR APTT ABG pH ABG pO2 ABG HCO3 ABG O2 Saturation ABG Base Excess ABG Hemoglobin Oxyhemoglobin Sodium Potassium 2.4 L* Chloride 85.1 L Carbon Dioxide 19 L BUN Creatinine 0.5 L Glucose 261 H POC Glucose Lactic Acid Calcium Ionized Calcium Phosphorus Magnesium Total Bilirubin AST 609 H ALT 152 H Alkaline Phosphatase 160 H Ammonia 117.0 H Total Creatine Kinase 139 H CK-MB (CK-2) 8.3 H CK-MB (CK-2) Rel Index 5.9 H Total Protein Albumin 3.6 L Urine WBC (Auto) Vancomycin Trough Salicylates < 0.3 L Acetaminophen Plasma/Serum Alcohol Crossmatch 11/22/19 11/22/19 11/23/19 23:27 23:27 01:10 WBC RBC Hgb Hct MCH RDW Plt Count Lymph % (Auto) [place] % (Auto) [place] # Baso # Seg Neutrophils % Seg Neuts % (Manual) Lymphocytes % (Manual) Monocytes % (Manual) Seg Neutrophils # Seg Neutrophils # Man Lymphocytes # (Manual) Monocytes # (Manual) Eosinophils # (Manual) Basophils # (Manual) PT INR APTT ABG pH 7.273 L ABG pO2 209.7 H ABG HCO3 ABG O2 Saturation 99.2 H ABG Base Excess -3.9 L ABG Hemoglobin 10.6 L Oxyhemoglobin 93.9 L Sodium Potassium Chloride Carbon Dioxide BUN Creatinine Glucose POC Glucose Lactic Acid Calcium Ionized Calcium Phosphorus Magnesium Total Bilirubin AST ALT Alkaline Phosphatase Ammonia Total Creatine Kinase CK-MB (CK-2) CK-MB (CK-2) Rel Index Total Protein Albumin Urine WBC (Auto) Vancomycin Trough Salicylates Acetaminophen < 5.0 L Plasma/Serum Alcohol 0.08 H Crossmatch 11/23/19 11/23/19 11/23/19 01:19 01:19 03:47 WBC RBC Hgb Hct MCH RDW Plt Count Lymph % (Auto) [place] % (Auto) [place] # Baso # Seg Neutrophils % Seg Neuts % (Manual) Lymphocytes % (Manual) Monocytes % (Manual) Seg Neutrophils # Seg Neutrophils # Man Lymphocytes # (Manual) Monocytes # (Manual) Eosinophils # (Manual) Basophils # (Manual) PT 16.3 H INR 1.29 H APTT ABG pH ABG pO2 ABG HCO3 ABG O2 Saturation ABG Base Excess ABG Hemoglobin Oxyhemoglobin Sodium Potassium Chloride Carbon Dioxide BUN Creatinine Glucose POC Glucose Lactic Acid 2.10 H* 5.00 H* Calcium Ionized Calcium Phosphorus Magnesium Total Bilirubin AST ALT Alkaline Phosphatase Ammonia Total Creatine Kinase CK-MB (CK-2) CK-MB (CK-2) Rel Index Total Protein Albumin Urine WBC (Auto) Vancomycin Trough Salicylates Acetaminophen Plasma/Serum Alcohol Crossmatch 11/23/19 11/23/19 11/23/19 03:47 03:47 04:53 WBC RBC Hgb 9.4 L Hct MCH RDW Plt Count Lymph % (Auto) [place] % (Auto) [place] # Baso # Seg Neutrophils % Seg Neuts % (Manual) Lymphocytes % (Manual) Monocytes % (Manual) Seg Neutrophils # Seg Neutrophils # Man Lymphocytes # (Manual) Monocytes # (Manual) Eosinophils # (Manual) Basophils # (Manual) PT 17.0 H INR 1.36 H APTT 128.2 H* ABG pH ABG pO2 ABG HCO3 ABG O2 Saturation ABG Base Excess ABG Hemoglobin Oxyhemoglobin Sodium Potassium Chloride Carbon Dioxide 18 L BUN Creatinine 0.5 L Glucose 105 H POC Glucose Lactic Acid Calcium 8.3 L Ionized Calcium Phosphorus 2.40 L Magnesium Total Bilirubin 1.30 H AST 761 H ALT 158 H Alkaline Phosphatase 143 H Ammonia Total Creatine Kinase CK-MB (CK-2) CK-MB (CK-2) Rel Index Total Protein Albumin 2.8 L Urine WBC (Auto) Vancomycin Trough Salicylates Acetaminophen Plasma/Serum Alcohol Crossmatch 11/23/19 11/23/19 11/23/19 05:12 06:32 06:32 WBC 16.8 H RBC 3.31 L Hgb 8.9 L Hct 28.7 L MCH 27 L RDW 18.6 H Plt Count Lymph % (Auto) [place] % (Auto) [place] # Baso # Seg Neutrophils % Seg Neuts % (Manual) 94.0 H Lymphocytes % (Manual) 1.0 L Monocytes % (Manual) Seg Neutrophils # Seg Neutrophils # Man 15.8 H Lymphocytes # (Manual) 0.2 L Monocytes # (Manual) Eosinophils # (Manual) Basophils # (Manual) PT INR APTT ABG pH ABG pO2 ABG HCO3 ABG O2 Saturation ABG Base Excess -3.2 L ABG Hemoglobin 9.0 L Oxyhemoglobin 93.6 L Sodium Potassium Chloride Carbon Dioxide BUN Creatinine Glucose POC Glucose Lactic Acid Calcium Ionized Calcium 4.5 L Phosphorus Magnesium Total Bilirubin AST ALT Alkaline Phosphatase Ammonia Total Creatine Kinase CK-MB (CK-2) CK-MB (CK-2) Rel Index Total Protein Albumin Urine WBC (Auto) Vancomycin Trough Salicylates Acetaminophen Plasma/Serum Alcohol Crossmatch 11/23/19 11/24/19 11/24/19 06:32 04:35 04:35 WBC RBC Hgb Hct MCH RDW Plt Count Lymph % (Auto) [place] % (Auto) [place] # Baso # Seg Neutrophils % Seg Neuts % (Manual) Lymphocytes % (Manual) Monocytes % (Manual) Seg Neutrophils # Seg Neutrophils # Man Lymphocytes # (Manual) Monocytes # (Manual) Eosinophils # (Manual) Basophils # (Manual) PT INR APTT ABG pH ABG pO2 ABG HCO3 ABG O2 Saturation ABG Base Excess ABG Hemoglobin Oxyhemoglobin Sodium Potassium Chloride Carbon Dioxide BUN Creatinine Glucose POC Glucose Lactic Acid 3.30 H* Calcium Ionized Calcium Phosphorus Magnesium 1.40 L Total Bilirubin AST ALT Alkaline Phosphatase Ammonia 98.0 H Total Creatine Kinase CK-MB (CK-2) CK-MB (CK-2) Rel Index Total Protein Albumin Urine WBC (Auto) Vancomycin Trough Salicylates Acetaminophen Plasma/Serum Alcohol Crossmatch 11/24/19 11/25/19 11/25/19 05:22 04:34 05:05 WBC 17.3 H RBC 2.88 L Hgb 7.8 L Hct 24.6 L MCH 27 L RDW 18.5 H Plt Count Lymph % (Auto) 7.7 L [place] % (Auto) 9.7 H [place] # 1.7 H Baso # Seg Neutrophils % 82.2 H Seg Neuts % (Manual) Lymphocytes % (Manual) Monocytes % (Manual) Seg Neutrophils # 14.2 H Seg Neutrophils # Man Lymphocytes # (Manual) Monocytes # (Manual) Eosinophils # (Manual) Basophils # (Manual) PT INR APTT ABG pH 7.475 H ABG pO2 ABG HCO3 29.4 H 32.3 H ABG O2 Saturation ABG Base Excess 5.4 H 6.9 H ABG Hemoglobin 9.0 L 10.6 L Oxyhemoglobin 94.3 L Sodium Potassium Chloride Carbon Dioxide BUN Creatinine Glucose POC Glucose Lactic Acid Calcium Ionized Calcium Phosphorus Magnesium Total Bilirubin AST ALT Alkaline Phosphatase Ammonia Total Creatine Kinase CK-MB (CK-2) CK-MB (CK-2) Rel Index Total Protein Albumin Urine WBC (Auto) Vancomycin Trough Salicylates Acetaminophen Plasma/Serum Alcohol Crossmatch 11/25/19 11/25/19 11/26/19 05:05 22:46 03:31 WBC RBC Hgb Hct MCH RDW Plt Count Lymph % (Auto) [place] % (Auto) [place] # Baso # Seg Neutrophils % Seg Neuts % (Manual) Lymphocytes % (Manual) Monocytes % (Manual) Seg Neutrophils # Seg Neutrophils # Man Lymphocytes # (Manual) Monocytes # (Manual) Eosinophils # (Manual) Basophils # (Manual) PT INR APTT ABG pH 7.459 H ABG pO2 ABG HCO3 34.2 H ABG O2 Saturation ABG Base Excess 9.4 H ABG Hemoglobin 7.6 L Oxyhemoglobin 94.8 L Sodium 152 H D 147 H Potassium 2.3 L* D 2.8 L* D Chloride 107.8 H Carbon Dioxide 31 H D 33 H BUN Creatinine 0.6 L 0.6 L Glucose 148 H 177 H POC Glucose Lactic Acid Calcium Ionized Calcium Phosphorus Magnesium Total Bilirubin AST 105 H ALT 71 H Alkaline Phosphatase 155 H Ammonia Total Creatine Kinase CK-MB (CK-2) CK-MB (CK-2) Rel Index Total Protein 5.2 L D Albumin 2.9 L Urine WBC (Auto) Vancomycin Trough Salicylates Acetaminophen Plasma/Serum Alcohol Crossmatch 11/26/19 11/26/19 11/27/19 08:24 08:24 04:20 WBC 12.0 H RBC 3.00 L Hgb 8.0 L 9.3 L Hct 25.9 L 29.7 L MCH 27 L RDW 18.5 H Plt Count Lymph % (Auto) [place] % (Auto) [place] # Baso # Seg Neutrophils % Seg Neuts % (Manual) 89.0 H Lymphocytes % (Manual) 4.0 L Monocytes % (Manual) Seg Neutrophils # Seg Neutrophils # Man 10.7 H Lymphocytes # (Manual) 0.5 L Monocytes # (Manual) Eosinophils # (Manual) Basophils # (Manual) PT INR APTT ABG pH ABG pO2 ABG HCO3 ABG O2 Saturation ABG Base Excess ABG Hemoglobin Oxyhemoglobin Sodium 146 H Potassium 3.4 L D Chloride Carbon Dioxide BUN Creatinine 0.5 L Glucose 165 H POC Glucose Lactic Acid Calcium Ionized Calcium Phosphorus Magnesium Total Bilirubin AST 57 H ALT Alkaline Phosphatase 166 H Ammonia Total Creatine Kinase CK-MB (CK-2) CK-MB (CK-2) Rel Index Total Protein Albumin 2.9 L Urine WBC (Auto) Vancomycin Trough Salicylates Acetaminophen Plasma/Serum Alcohol Crossmatch 11/27/19 11/27/19 11/27/19 04:28 04:28 04:42 WBC RBC Hgb Hct MCH RDW Plt Count Lymph % (Auto) [place] % (Auto) [place] # Baso # Seg Neutrophils % Seg Neuts % (Manual) Lymphocytes % (Manual) Monocytes % (Manual) Seg Neutrophils # Seg Neutrophils # Man Lymphocytes # (Manual) Monocytes # (Manual) Eosinophils # (Manual) Basophils # (Manual) PT INR APTT ABG pH 7.470 H ABG pO2 74.0 L ABG HCO3 33.8 H ABG O2 Saturation ABG Base Excess 9.1 H ABG Hemoglobin 8.7 L Oxyhemoglobin 94.7 L Sodium 146 H Potassium 2.9 L* Chloride Carbon Dioxide BUN 25 H Creatinine Glucose 213 H POC Glucose Lactic Acid Calcium Ionized Calcium Phosphorus 1.00 L Magnesium Total Bilirubin AST ALT Alkaline Phosphatase Ammonia Total Creatine Kinase CK-MB (CK-2) CK-MB (CK-2) Rel Index Total Protein Albumin Urine WBC (Auto) Vancomycin Trough Salicylates Acetaminophen Plasma/Serum Alcohol Crossmatch 11/27/19 11/27/19 11/27/19 05:37 12:20 15:46 WBC RBC Hgb Hct MCH RDW Plt Count Lymph % (Auto) [place] % (Auto) [place] # Baso # Seg Neutrophils % Seg Neuts % (Manual) Lymphocytes % (Manual) Monocytes % (Manual) Seg Neutrophils # Seg Neutrophils # Man Lymphocytes # (Manual) Monocytes # (Manual) Eosinophils # (Manual) Basophils # (Manual) PT INR APTT ABG pH ABG pO2 ABG HCO3 ABG O2 Saturation ABG Base Excess ABG Hemoglobin Oxyhemoglobin Sodium 146 H Potassium 3.5 L D Chloride Carbon Dioxide BUN 24 H Creatinine 0.6 L Glucose 187 H POC Glucose 117 H 220 H Lactic Acid Calcium Ionized Calcium Phosphorus Magnesium Total Bilirubin AST ALT Alkaline Phosphatase Ammonia Total Creatine Kinase CK-MB (CK-2) CK-MB (CK-2) Rel Index Total Protein Albumin Urine WBC (Auto) Vancomycin Trough Salicylates Acetaminophen Plasma/Serum Alcohol Crossmatch 11/27/19 11/28/19 11/28/19 17:28 05:00 05:02 WBC RBC Hgb Hct MCH RDW Plt Count Lymph % (Auto) [place] % (Auto) [place] # Baso # Seg Neutrophils % Seg Neuts % (Manual) Lymphocytes % (Manual) Monocytes % (Manual) Seg Neutrophils # Seg Neutrophils # Man Lymphocytes # (Manual) Monocytes # (Manual) Eosinophils # (Manual) Basophils # (Manual) PT INR APTT ABG pH ABG pO2 72.4 L ABG HCO3 33.6 H ABG O2 Saturation 94.1 L ABG Base Excess 7.3 H ABG Hemoglobin Oxyhemoglobin 91.8 L Sodium 146 H Potassium 3.3 L Chloride Carbon Dioxide BUN 25 H Creatinine 0.6 L Glucose 176 H POC Glucose 198 H Lactic Acid Calcium Ionized Calcium Phosphorus Magnesium Total Bilirubin AST ALT Alkaline Phosphatase Ammonia Total Creatine Kinase CK-MB (CK-2) CK-MB (CK-2) Rel Index Total Protein Albumin Urine WBC (Auto) Vancomycin Trough Salicylates Acetaminophen Plasma/Serum Alcohol Crossmatch 11/28/19 11/28/19 11/29/19 05:02 18:55 10:43 WBC 15.2 H 19.0 H RBC 3.06 L 3.01 L Hgb 8.3 L 8.3 L Hct 27.0 L 26.4 L MCH 27 L RDW 19.0 H 19.7 H Plt Count 479 H 611 H Lymph % (Auto) [place] % (Auto) [place] # Baso # Seg Neutrophils % Seg Neuts % (Manual) 92.0 H Lymphocytes % (Manual) 2.0 L Monocytes % (Manual) Seg Neutrophils # Seg Neutrophils # Man 14.0 H Lymphocytes # (Manual) 0.3 L Monocytes # (Manual) Eosinophils # (Manual) Basophils # (Manual) PT INR APTT ABG pH ABG pO2 ABG HCO3 ABG O2 Saturation ABG Base Excess ABG Hemoglobin Oxyhemoglobin Sodium Potassium Chloride Carbon Dioxide BUN Creatinine Glucose POC Glucose 138 H Lactic Acid Calcium Ionized Calcium Phosphorus Magnesium Total Bilirubin AST ALT Alkaline Phosphatase Ammonia Total Creatine Kinase CK-MB (CK-2) CK-MB (CK-2) Rel Index Total Protein Albumin Urine WBC (Auto) Vancomycin Trough Salicylates Acetaminophen Plasma/Serum Alcohol Crossmatch 11/29/19 11/29/19 11/29/19 10:43 12:27 19:25 WBC RBC Hgb Hct MCH RDW Plt Count Lymph % (Auto) [place] % (Auto) [place] # Baso # Seg Neutrophils % Seg Neuts % (Manual) Lymphocytes % (Manual) Monocytes % (Manual) Seg Neutrophils # Seg Neutrophils # Man Lymphocytes # (Manual) Monocytes # (Manual) Eosinophils # (Manual) Basophils # (Manual) PT INR APTT ABG pH ABG pO2 ABG HCO3 ABG O2 Saturation ABG Base Excess ABG Hemoglobin Oxyhemoglobin Sodium Potassium 2.8 L* Chloride Carbon Dioxide BUN 20 H Creatinine 0.5 L Glucose 121 H POC Glucose 128 H 120 H Lactic Acid Calcium Ionized Calcium Phosphorus Magnesium Total Bilirubin AST ALT Alkaline Phosphatase Ammonia Total Creatine Kinase CK-MB (CK-2) CK-MB (CK-2) Rel Index Total Protein Albumin Urine WBC (Auto) Vancomycin Trough Salicylates Acetaminophen Plasma/Serum Alcohol Crossmatch 11/29/19 11/30/19 11/30/19 23:46 04:10 05:02 WBC RBC Hgb Hct MCH RDW Plt Count Lymph % (Auto) [place] % (Auto) [place] # Baso # Seg Neutrophils % Seg Neuts % (Manual) Lymphocytes % (Manual) Monocytes % (Manual) Seg Neutrophils # Seg Neutrophils # Man Lymphocytes # (Manual) Monocytes # (Manual) Eosinophils # (Manual) Basophils # (Manual) PT INR APTT ABG pH ABG pO2 76.3 L ABG HCO3 32.5 H ABG O2 Saturation ABG Base Excess 6.9 H ABG Hemoglobin 8.0 L Oxyhemoglobin 92.6 L Sodium Potassium Chloride Carbon Dioxide BUN Creatinine Glucose POC Glucose 116 H 128 H Lactic Acid Calcium Ionized Calcium Phosphorus Magnesium Total Bilirubin AST ALT Alkaline Phosphatase Ammonia Total Creatine Kinase CK-MB (CK-2) CK-MB (CK-2) Rel Index Total Protein Albumin Urine WBC (Auto) Vancomycin Trough Salicylates Acetaminophen Plasma/Serum Alcohol Crossmatch 11/30/19 11/30/19 11/30/19 05:25 05:25 12:59 WBC 18.4 H RBC 3.10 L Hgb 8.5 L Hct 27.5 L MCH 27 L RDW 20.9 H Plt Count 691 H Lymph % (Auto) 7.1 L [place] % (Auto) 7.7 H [place] # 1.4 H Baso # Seg Neutrophils % 83.4 H Seg Neuts % (Manual) Lymphocytes % (Manual) Monocytes % (Manual) Seg Neutrophils # 15.4 H Seg Neutrophils # Man Lymphocytes # (Manual) Monocytes # (Manual) Eosinophils # (Manual) Basophils # (Manual) PT INR APTT ABG pH ABG pO2 ABG HCO3 ABG O2 Saturation ABG Base Excess ABG Hemoglobin Oxyhemoglobin Sodium 146 H Potassium Chloride 107.2 H Carbon Dioxide BUN Creatinine 0.5 L Glucose 132 H POC Glucose 124 H Lactic Acid Calcium Ionized Calcium Phosphorus Magnesium Total Bilirubin AST 246 H ALT 274 H Alkaline Phosphatase 203 H Ammonia Total Creatine Kinase CK-MB (CK-2) CK-MB (CK-2) Rel Index Total Protein 5.4 L Albumin 2.9 L Urine WBC (Auto) Vancomycin Trough Salicylates Acetaminophen Plasma/Serum Alcohol Crossmatch 11/30/19 12/01/19 12/01/19 17:53 00:05 05:10 WBC RBC Hgb Hct MCH RDW Plt Count Lymph % (Auto) [place] % (Auto) [place] # Baso # Seg Neutrophils % Seg Neuts % (Manual) Lymphocytes % (Manual) Monocytes % (Manual) Seg Neutrophils # Seg Neutrophils # Man Lymphocytes # (Manual) Monocytes # (Manual) Eosinophils # (Manual) Basophils # (Manual) PT INR APTT ABG pH ABG pO2 ABG HCO3 ABG O2 Saturation ABG Base Excess ABG Hemoglobin Oxyhemoglobin Sodium Potassium Chloride Carbon Dioxide BUN Creatinine Glucose POC Glucose 113 H 143 H 145 H Lactic Acid Calcium Ionized Calcium Phosphorus Magnesium Total Bilirubin AST ALT Alkaline Phosphatase Ammonia Total Creatine Kinase CK-MB (CK-2) CK-MB (CK-2) Rel Index Total Protein Albumin Urine WBC (Auto) Vancomycin Trough Salicylates Acetaminophen Plasma/Serum Alcohol Crossmatch 12/01/19 12/01/19 12/01/19 05:33 08:23 08:23 WBC 22.7 H RBC 2.88 L Hgb 7.9 L Hct 25.2 L MCH 27 L RDW 21.0 H Plt Count 732 H Lymph % (Auto) [place] % (Auto) [place] # Baso # Seg Neutrophils % Seg Neuts % (Manual) 91.0 H Lymphocytes % (Manual) 3.0 L Monocytes % (Manual) Seg Neutrophils # Seg Neutrophils # Man 20.7 H Lymphocytes # (Manual) 0.7 L Monocytes # (Manual) 1.1 H Eosinophils # (Manual) Basophils # (Manual) PT INR APTT ABG pH ABG pO2 68.6 L ABG HCO3 34.1 H ABG O2 Saturation ABG Base Excess 9.0 H ABG Hemoglobin 6.5 L Oxyhemoglobin 94.7 L Sodium Potassium Chloride Carbon Dioxide BUN Creatinine 0.5 L Glucose 125 H POC Glucose Lactic Acid Calcium Ionized Calcium Phosphorus Magnesium Total Bilirubin AST ALT Alkaline Phosphatase Ammonia Total Creatine Kinase CK-MB (CK-2) CK-MB (CK-2) Rel Index Total Protein Albumin Urine WBC (Auto) Vancomycin Trough Salicylates Acetaminophen Plasma/Serum Alcohol Crossmatch 12/01/19 12/01/19 12/01/19 13:21 17:54 20:59 WBC RBC Hgb Hct MCH RDW Plt Count Lymph % (Auto) [place] % (Auto) [place] # Baso # Seg Neutrophils % Seg Neuts % (Manual) Lymphocytes % (Manual) Monocytes % (Manual) Seg Neutrophils # Seg Neutrophils # Man Lymphocytes # (Manual) Monocytes # (Manual) Eosinophils # (Manual) Basophils # (Manual) PT INR APTT ABG pH ABG pO2 78.3 L ABG HCO3 33.8 H ABG O2 Saturation 94.9 L ABG Base Excess 7.9 H ABG Hemoglobin 11.5 L Oxyhemoglobin 92.3 L Sodium Potassium Chloride Carbon Dioxide BUN Creatinine Glucose POC Glucose 111 H 115 H Lactic Acid Calcium Ionized Calcium Phosphorus Magnesium Total Bilirubin AST ALT Alkaline Phosphatase Ammonia Total Creatine Kinase CK-MB (CK-2) CK-MB (CK-2) Rel Index Total Protein Albumin Urine WBC (Auto) Vancomycin Trough Salicylates Acetaminophen Plasma/Serum Alcohol Crossmatch 12/02/19 12/03/19 12/04/19 12:55 20:00 04:26 WBC 15.2 H RBC 2.69 L Hgb 7.4 L Hct 23.6 L MCH 27 L RDW 19.9 H Plt Count 838 H Lymph % (Auto) [place] % (Auto) [place] # Baso # Seg Neutrophils % Seg Neuts % (Manual) Lymphocytes % (Manual) Monocytes % (Manual) Seg Neutrophils # Seg Neutrophils # Man Lymphocytes # (Manual) Monocytes # (Manual) Eosinophils # (Manual) Basophils # (Manual) PT INR APTT ABG pH ABG pO2 68.3 L ABG HCO3 33.5 H ABG O2 Saturation 93.5 L ABG Base Excess 8.4 H ABG Hemoglobin 7.3 L Oxyhemoglobin 90.9 L Sodium Potassium Chloride Carbon Dioxide BUN Creatinine Glucose POC Glucose 107 H Lactic Acid Calcium Ionized Calcium Phosphorus Magnesium Total Bilirubin AST ALT Alkaline Phosphatase Ammonia Total Creatine Kinase CK-MB (CK-2) CK-MB (CK-2) Rel Index Total Protein Albumin Urine WBC (Auto) Vancomycin Trough Salicylates Acetaminophen Plasma/Serum Alcohol Crossmatch 12/04/19 12/04/19 12/04/19 04:26 07:45 12:02 WBC 15.9 H RBC 2.88 L Hgb 7.9 L Hct 25.1 L MCH RDW 20.4 H Plt Count 839 H Lymph % (Auto) 11.3 L [place] % (Auto) 15.2 H [place] # 2.4 H Baso # Seg Neutrophils % 72.4 H Seg Neuts % (Manual) Lymphocytes % (Manual) Monocytes % (Manual) Seg Neutrophils # 11.5 H Seg Neutrophils # Man Lymphocytes # (Manual) Monocytes # (Manual) Eosinophils # (Manual) Basophils # (Manual) PT INR APTT ABG pH ABG pO2 ABG HCO3 ABG O2 Saturation ABG Base Excess ABG Hemoglobin Oxyhemoglobin Sodium Potassium Chloride 96.5 L Carbon Dioxide BUN 21 H Creatinine 0.6 L Glucose 107 H POC Glucose 138 H Lactic Acid Calcium Ionized Calcium Phosphorus Magnesium Total Bilirubin AST ALT Alkaline Phosphatase Ammonia Total Creatine Kinase CK-MB (CK-2) CK-MB (CK-2) Rel Index Total Protein Albumin Urine WBC (Auto) Vancomycin Trough Salicylates Acetaminophen Plasma/Serum Alcohol Crossmatch 12/04/19 12/05/19 12/05/19 18:16 11:55 18:36 WBC RBC Hgb Hct MCH RDW Plt Count Lymph % (Auto) [place] % (Auto) [place] # Baso # Seg Neutrophils % Seg Neuts % (Manual) Lymphocytes % (Manual) Monocytes % (Manual) Seg Neutrophils # Seg Neutrophils # Man Lymphocytes # (Manual) Monocytes # (Manual) Eosinophils # (Manual) Basophils # (Manual) PT INR APTT ABG pH ABG pO2 ABG HCO3 ABG O2 Saturation ABG Base Excess ABG Hemoglobin Oxyhemoglobin Sodium Potassium Chloride Carbon Dioxide BUN Creatinine Glucose POC Glucose 135 H 125 H 135 H Lactic Acid Calcium Ionized Calcium Phosphorus Magnesium Total Bilirubin AST ALT Alkaline Phosphatase Ammonia Total Creatine Kinase CK-MB (CK-2) CK-MB (CK-2) Rel Index Total Protein Albumin Urine WBC (Auto) Vancomycin Trough Salicylates Acetaminophen Plasma/Serum Alcohol Crossmatch 12/05/19 12/06/19 12/06/19 23:30 04:14 05:43 WBC RBC Hgb Hct MCH RDW Plt Count Lymph % (Auto) [place] % (Auto) [place] # Baso # Seg Neutrophils % Seg Neuts % (Manual) Lymphocytes % (Manual) Monocytes % (Manual) Seg Neutrophils # Seg Neutrophils # Man Lymphocytes # (Manual) Monocytes # (Manual) Eosinophils # (Manual) Basophils # (Manual) PT INR APTT ABG pH ABG pO2 ABG HCO3 ABG O2 Saturation ABG Base Excess ABG Hemoglobin Oxyhemoglobin Sodium Potassium 5.6 H Chloride 95.0 L Carbon Dioxide BUN 48 H Creatinine 1.3 H D Glucose POC Glucose 126 H 121 H Lactic Acid Calcium Ionized Calcium Phosphorus Magnesium Total Bilirubin AST 89 H ALT 98 H Alkaline Phosphatase 476 H Ammonia Total Creatine Kinase CK-MB (CK-2) CK-MB (CK-2) Rel Index Total Protein Albumin 2.8 L Urine WBC (Auto) Vancomycin Trough Salicylates Acetaminophen Plasma/Serum Alcohol Crossmatch 12/06/19 12/06/19 12/07/19 10:39 14:34 00:19 WBC 17.3 H RBC 2.60 L Hgb 7.1 L Hct 22.7 L MCH 27 L RDW 20.1 H Plt Count 832 H Lymph % (Auto) [place] % (Auto) [place] # Baso # Seg Neutrophils % Seg Neuts % (Manual) Lymphocytes % (Manual) Monocytes % (Manual) Seg Neutrophils # Seg Neutrophils # Man Lymphocytes # (Manual) Monocytes # (Manual) Eosinophils # (Manual) Basophils # (Manual) PT INR APTT ABG pH ABG pO2 ABG HCO3 ABG O2 Saturation ABG Base Excess ABG Hemoglobin Oxyhemoglobin Sodium Potassium Chloride Carbon Dioxide BUN Creatinine Glucose POC Glucose 128 H 136 H Lactic Acid Calcium Ionized Calcium Phosphorus Magnesium Total Bilirubin AST ALT Alkaline Phosphatase Ammonia Total Creatine Kinase CK-MB (CK-2) CK-MB (CK-2) Rel Index Total Protein Albumin Urine WBC (Auto) Vancomycin Trough Salicylates Acetaminophen Plasma/Serum Alcohol Crossmatch 12/07/19 12/07/19 12/07/19 03:44 03:44 05:53 WBC 16.2 H RBC 2.56 L Hgb 7.1 L Hct 22.3 L MCH RDW 19.4 H Plt Count 782 H Lymph % (Auto) [place] % (Auto) [place] # Baso # Seg Neutrophils % Seg Neuts % (Manual) Lymphocytes % (Manual) Monocytes % (Manual) Seg Neutrophils # Seg Neutrophils # Man Lymphocytes # (Manual) Monocytes # (Manual) Eosinophils # (Manual) Basophils # (Manual) PT INR APTT ABG pH ABG pO2 ABG HCO3 ABG O2 Saturation ABG Base Excess ABG Hemoglobin Oxyhemoglobin Sodium Potassium Chloride 95.6 L Carbon Dioxide BUN 56 H Creatinine 1.4 H Glucose 120 H POC Glucose 128 H Lactic Acid Calcium 10.3 H Ionized Calcium Phosphorus Magnesium Total Bilirubin AST ALT Alkaline Phosphatase Ammonia Total Creatine Kinase CK-MB (CK-2) CK-MB (CK-2) Rel Index Total Protein Albumin Urine WBC (Auto) Vancomycin Trough Salicylates Acetaminophen Plasma/Serum Alcohol Crossmatch 12/07/19 12/07/19 12/08/19 12:54 23:47 00:20 WBC RBC Hgb Hct MCH RDW Plt Count Lymph % (Auto) [place] % (Auto) [place] # Baso # Seg Neutrophils % Seg Neuts % (Manual) Lymphocytes % (Manual) Monocytes % (Manual) Seg Neutrophils # Seg Neutrophils # Man Lymphocytes # (Manual) Monocytes # (Manual) Eosinophils # (Manual) Basophils # (Manual) PT INR APTT ABG pH ABG pO2 ABG HCO3 ABG O2 Saturation ABG Base Excess ABG Hemoglobin Oxyhemoglobin Sodium Potassium Chloride Carbon Dioxide BUN Creatinine Glucose POC Glucose 128 H 130 H 124 H Lactic Acid Calcium Ionized Calcium Phosphorus Magnesium Total Bilirubin AST ALT Alkaline Phosphatase Ammonia Total Creatine Kinase CK-MB (CK-2) CK-MB (CK-2) Rel Index Total Protein Albumin Urine WBC (Auto) Vancomycin Trough Salicylates Acetaminophen Plasma/Serum Alcohol Crossmatch 12/08/19 12/08/19 12/08/19 06:38 12:04 18:26 WBC RBC Hgb Hct MCH RDW Plt Count Lymph % (Auto) [place] % (Auto) [place] # Baso # Seg Neutrophils % Seg Neuts % (Manual) Lymphocytes % (Manual) Monocytes % (Manual) Seg Neutrophils # Seg Neutrophils # Man Lymphocytes # (Manual) Monocytes # (Manual) Eosinophils # (Manual) Basophils # (Manual) PT INR APTT ABG pH ABG pO2 ABG HCO3 ABG O2 Saturation ABG Base Excess ABG Hemoglobin Oxyhemoglobin Sodium Potassium Chloride Carbon Dioxide BUN Creatinine Glucose POC Glucose 137 H 129 H 150 H Lactic Acid Calcium Ionized Calcium Phosphorus Magnesium Total Bilirubin AST ALT Alkaline Phosphatase Ammonia Total Creatine Kinase CK-MB (CK-2) CK-MB (CK-2) Rel Index Total Protein Albumin Urine WBC (Auto) Vancomycin Trough Salicylates Acetaminophen Plasma/Serum Alcohol Crossmatch 12/09/19 12/09/19 12/09/19 00:56 05:34 06:13 WBC RBC Hgb Hct MCH RDW Plt Count Lymph % (Auto) [place] % (Auto) [place] # Baso # Seg Neutrophils % Seg Neuts % (Manual) Lymphocytes % (Manual) Monocytes % (Manual) Seg Neutrophils # Seg Neutrophils # Man Lymphocytes # (Manual) Monocytes # (Manual) Eosinophils # (Manual) Basophils # (Manual) PT INR APTT ABG pH ABG pO2 ABG HCO3 ABG O2 Saturation ABG Base Excess ABG Hemoglobin Oxyhemoglobin Sodium 146 H Potassium Chloride Carbon Dioxide BUN 66 H Creatinine 1.9 H Glucose 116 H POC Glucose 130 H 130 H Lactic Acid Calcium Ionized Calcium Phosphorus Magnesium Total Bilirubin AST ALT Alkaline Phosphatase Ammonia Total Creatine Kinase CK-MB (CK-2) CK-MB (CK-2) Rel Index Total Protein Albumin Urine WBC (Auto) Vancomycin Trough Salicylates Acetaminophen Plasma/Serum Alcohol Crossmatch 12/09/19 12/09/19 12/10/19 11:52 17:50 00:14 WBC RBC Hgb Hct MCH RDW Plt Count Lymph % (Auto) [place] % (Auto) [place] # Baso # Seg Neutrophils % Seg Neuts % (Manual) Lymphocytes % (Manual) Monocytes % (Manual) Seg Neutrophils # Seg Neutrophils # Man Lymphocytes # (Manual) Monocytes # (Manual) Eosinophils # (Manual) Basophils # (Manual) PT INR APTT ABG pH ABG pO2 ABG HCO3 ABG O2 Saturation ABG Base Excess ABG Hemoglobin Oxyhemoglobin Sodium Potassium Chloride Carbon Dioxide BUN Creatinine Glucose POC Glucose 135 H 120 H 116 H Lactic Acid Calcium Ionized Calcium Phosphorus Magnesium Total Bilirubin AST ALT Alkaline Phosphatase Ammonia Total Creatine Kinase CK-MB (CK-2) CK-MB (CK-2) Rel Index Total Protein Albumin Urine WBC (Auto) Vancomycin Trough Salicylates Acetaminophen Plasma/Serum Alcohol Crossmatch 12/10/19 12/10/19 12/10/19 05:38 11:38 17:34 WBC RBC Hgb Hct MCH RDW Plt Count Lymph % (Auto) [place] % (Auto) [place] # Baso # Seg Neutrophils % Seg Neuts % (Manual) Lymphocytes % (Manual) Monocytes % (Manual) Seg Neutrophils # Seg Neutrophils # Man Lymphocytes # (Manual) Monocytes # (Manual) Eosinophils # (Manual) Basophils # (Manual) PT INR APTT ABG pH ABG pO2 ABG HCO3 ABG O2 Saturation ABG Base Excess ABG Hemoglobin Oxyhemoglobin Sodium Potassium Chloride Carbon Dioxide BUN Creatinine Glucose POC Glucose 115 H 112 H 130 H Lactic Acid Calcium Ionized Calcium Phosphorus Magnesium Total Bilirubin AST ALT Alkaline Phosphatase Ammonia Total Creatine Kinase CK-MB (CK-2) CK-MB (CK-2) Rel Index Total Protein Albumin Urine WBC (Auto) Vancomycin Trough Salicylates Acetaminophen Plasma/Serum Alcohol Crossmatch 12/11/19 12/11/19 12/11/19 00:20 05:31 12:22 WBC RBC Hgb Hct MCH RDW Plt Count Lymph % (Auto) [place] % (Auto) [place] # Baso # Seg Neutrophils % Seg Neuts % (Manual) Lymphocytes % (Manual) Monocytes % (Manual) Seg Neutrophils # Seg Neutrophils # Man Lymphocytes # (Manual) Monocytes # (Manual) Eosinophils # (Manual) Basophils # (Manual) PT INR APTT ABG pH ABG pO2 ABG HCO3 ABG O2 Saturation ABG Base Excess ABG Hemoglobin Oxyhemoglobin Sodium Potassium Chloride Carbon Dioxide BUN Creatinine Glucose POC Glucose 124 H 132 H 128 H Lactic Acid Calcium Ionized Calcium Phosphorus Magnesium Total Bilirubin AST ALT Alkaline Phosphatase Ammonia Total Creatine Kinase CK-MB (CK-2) CK-MB (CK-2) Rel Index Total Protein Albumin Urine WBC (Auto) Vancomycin Trough Salicylates Acetaminophen Plasma/Serum Alcohol Crossmatch 12/11/19 12/11/19 12/12/19 18:04 23:42 03:51 WBC RBC Hgb Hct MCH RDW Plt Count Lymph % (Auto) [place] % (Auto) [place] # Baso # Seg Neutrophils % Seg Neuts % (Manual) Lymphocytes % (Manual) Monocytes % (Manual) Seg Neutrophils # Seg Neutrophils # Man Lymphocytes # (Manual) Monocytes # (Manual) Eosinophils # (Manual) Basophils # (Manual) PT INR APTT ABG pH ABG pO2 ABG HCO3 ABG O2 Saturation ABG Base Excess ABG Hemoglobin Oxyhemoglobin Sodium 149 H Potassium Chloride Carbon Dioxide 20 L D BUN 77 H Creatinine 2.8 H Glucose POC Glucose 133 H 154 H Lactic Acid Calcium Ionized Calcium Phosphorus Magnesium Total Bilirubin AST ALT Alkaline Phosphatase Ammonia Total Creatine Kinase CK-MB (CK-2) CK-MB (CK-2) Rel Index Total Protein Albumin Urine WBC (Auto) Vancomycin Trough Salicylates Acetaminophen Plasma/Serum Alcohol Crossmatch 12/12/19 12/12/19 12/12/19 05:18 05:26 10:30 WBC 18.0 H RBC 2.51 L Hgb 6.8 L Hct 22.0 L MCH 27 L RDW 19.9 H Plt Count 582 H Lymph % (Auto) [place] % (Auto) [place] # Baso # Seg Neutrophils % Seg Neuts % (Manual) Lymphocytes % (Manual) Monocytes % (Manual) Seg Neutrophils # Seg Neutrophils # Man Lymphocytes # (Manual) Monocytes # (Manual) Eosinophils # (Manual) Basophils # (Manual) PT INR APTT ABG pH ABG pO2 ABG HCO3 ABG O2 Saturation ABG Base Excess ABG Hemoglobin Oxyhemoglobin Sodium Potassium Chloride Carbon Dioxide BUN Creatinine Glucose POC Glucose 135 H Lactic Acid Calcium Ionized Calcium Phosphorus Magnesium Total Bilirubin AST ALT Alkaline Phosphatase Ammonia Total Creatine Kinase CK-MB (CK-2) CK-MB (CK-2) Rel Index Total Protein Albumin Urine WBC (Auto) Vancomycin Trough Salicylates Acetaminophen Plasma/Serum Alcohol Crossmatch See Detail 12/12/19 12/12/19 12/12/19 11:44 18:10 23:21 WBC RBC Hgb Hct MCH RDW Plt Count Lymph % (Auto) [place] % (Auto) [place] # Baso # Seg Neutrophils % Seg Neuts % (Manual) Lymphocytes % (Manual) Monocytes % (Manual) Seg Neutrophils # Seg Neutrophils # Man Lymphocytes # (Manual) Monocytes # (Manual) Eosinophils # (Manual) Basophils # (Manual) PT INR APTT ABG pH ABG pO2 ABG HCO3 ABG O2 Saturation ABG Base Excess ABG Hemoglobin Oxyhemoglobin Sodium Potassium Chloride Carbon Dioxide BUN Creatinine Glucose POC Glucose 108 H 107 H 126 H Lactic Acid Calcium Ionized Calcium Phosphorus Magnesium Total Bilirubin AST ALT Alkaline Phosphatase Ammonia Total Creatine Kinase CK-MB (CK-2) CK-MB (CK-2) Rel Index Total Protein Albumin Urine WBC (Auto) Vancomycin Trough Salicylates Acetaminophen Plasma/Serum Alcohol Crossmatch 12/13/19 12/13/19 12/13/19 05:41 07:48 07:48 WBC 38.3 H RBC 2.37 L Hgb 6.3 L Hct 20.9 L MCH 27 L RDW 20.2 H Plt Count 546 H Lymph % (Auto) [place] % (Auto) [place] # Baso # Seg Neutrophils % Seg Neuts % (Manual) 93.0 H Lymphocytes % (Manual) 1.0 L Monocytes % (Manual) Seg Neutrophils # Seg Neutrophils # Man 35.6 H Lymphocytes # (Manual) 0.4 L Monocytes # (Manual) Eosinophils # (Manual) Basophils # (Manual) 0.4 H PT INR APTT ABG pH ABG pO2 ABG HCO3 ABG O2 Saturation ABG Base Excess ABG Hemoglobin Oxyhemoglobin Sodium 152 H Potassium 3.1 L D Chloride 111.9 H Carbon Dioxide 21 L BUN 53 H Creatinine 1.9 H Glucose 141 H POC Glucose 128 H Lactic Acid Calcium Ionized Calcium Phosphorus Magnesium Total Bilirubin AST ALT Alkaline Phosphatase 316 H Ammonia Total Creatine Kinase CK-MB (CK-2) CK-MB (CK-2) Rel Index Total Protein Albumin 2.4 L Urine WBC (Auto) Vancomycin Trough Salicylates Acetaminophen Plasma/Serum Alcohol Crossmatch 12/13/19 12/13/19 12/14/19 18:17 23:19 05:36 WBC RBC Hgb Hct MCH RDW Plt Count Lymph % (Auto) [place] % (Auto) [place] # Baso # Seg Neutrophils % Seg Neuts % (Manual) Lymphocytes % (Manual) Monocytes % (Manual) Seg Neutrophils # Seg Neutrophils # Man Lymphocytes # (Manual) Monocytes # (Manual) Eosinophils # (Manual) Basophils # (Manual) PT INR APTT ABG pH ABG pO2 ABG HCO3 ABG O2 Saturation ABG Base Excess ABG Hemoglobin Oxyhemoglobin Sodium Potassium Chloride Carbon Dioxide BUN Creatinine Glucose POC Glucose 141 H 158 H 182 H Lactic Acid Calcium Ionized Calcium Phosphorus Magnesium Total Bilirubin AST ALT Alkaline Phosphatase Ammonia Total Creatine Kinase CK-MB (CK-2) CK-MB (CK-2) Rel Index Total Protein Albumin Urine WBC (Auto) Vancomycin Trough Salicylates Acetaminophen Plasma/Serum Alcohol Crossmatch 12/14/19 12/14/19 12/14/19 08:48 08:48 10:31 WBC 33.3 H RBC 2.70 L Hgb 7.9 L 8.0 L Hct 25.3 L 24.0 L MCH RDW 19.2 H Plt Count 476 H Lymph % (Auto) [place] % (Auto) [place] # Baso # Seg Neutrophils % Seg Neuts % (Manual) Lymphocytes % (Manual) Monocytes % (Manual) Seg Neutrophils # Seg Neutrophils # Man Lymphocytes # (Manual) Monocytes # (Manual) Eosinophils # (Manual) Basophils # (Manual) PT INR APTT ABG pH ABG pO2 ABG HCO3 ABG O2 Saturation ABG Base Excess ABG Hemoglobin Oxyhemoglobin Sodium 153 H Potassium 2.5 L* Chloride 114.9 H Carbon Dioxide 20 L BUN 38 H Creatinine 1.4 H Glucose 177 H POC Glucose Lactic Acid Calcium Ionized Calcium Phosphorus Magnesium Total Bilirubin AST ALT Alkaline Phosphatase Ammonia Total Creatine Kinase CK-MB (CK-2) CK-MB (CK-2) Rel Index Total Protein Albumin Urine WBC (Auto) Vancomycin Trough Salicylates Acetaminophen Plasma/Serum Alcohol Crossmatch 12/14/19 12/14/19 12/14/19 12:57 16:15 17:50 WBC RBC Hgb Hct MCH RDW Plt Count Lymph % (Auto) [place] % (Auto) [place] # Baso # Seg Neutrophils % Seg Neuts % (Manual) Lymphocytes % (Manual) Monocytes % (Manual) Seg Neutrophils # Seg Neutrophils # Man Lymphocytes # (Manual) Monocytes # (Manual) Eosinophils # (Manual) Basophils # (Manual) PT INR APTT ABG pH ABG pO2 73.6 L ABG HCO3 ABG O2 Saturation ABG Base Excess ABG Hemoglobin 7.6 L Oxyhemoglobin 94.0 L Sodium Potassium Chloride Carbon Dioxide BUN Creatinine Glucose POC Glucose 174 H 150 H Lactic Acid Calcium Ionized Calcium Phosphorus Magnesium Total Bilirubin AST ALT Alkaline Phosphatase Ammonia Total Creatine Kinase CK-MB (CK-2) CK-MB (CK-2) Rel Index Total Protein Albumin Urine WBC (Auto) Vancomycin Trough Salicylates Acetaminophen Plasma/Serum Alcohol Crossmatch 12/15/19 12/15/19 12/15/19 00:28 05:27 07:23 WBC 30.0 H RBC 3.11 L Hgb 8.6 L Hct 27.7 L MCH RDW 20.0 H Plt Count 473 H Lymph % (Auto) [place] % (Auto) [place] # Baso # Seg Neutrophils % Seg Neuts % (Manual) Lymphocytes % (Manual) Monocytes % (Manual) Seg Neutrophils # Seg Neutrophils # Man Lymphocytes # (Manual) Monocytes # (Manual) Eosinophils # (Manual) Basophils # (Manual) PT INR APTT ABG pH ABG pO2 ABG HCO3 ABG O2 Saturation ABG Base Excess ABG Hemoglobin Oxyhemoglobin Sodium Potassium Chloride Carbon Dioxide BUN Creatinine Glucose POC Glucose 167 H 148 H Lactic Acid Calcium Ionized Calcium Phosphorus Magnesium Total Bilirubin AST ALT Alkaline Phosphatase Ammonia Total Creatine Kinase CK-MB (CK-2) CK-MB (CK-2) Rel Index Total Protein Albumin Urine WBC (Auto) Vancomycin Trough Salicylates Acetaminophen Plasma/Serum Alcohol Crossmatch 12/15/19 12/15/19 12/15/19 07:23 12:21 17:41 WBC RBC Hgb Hct MCH RDW Plt Count Lymph % (Auto) [place] % (Auto) [place] # Baso # Seg Neutrophils % Seg Neuts % (Manual) Lymphocytes % (Manual) Monocytes % (Manual) Seg Neutrophils # Seg Neutrophils # Man Lymphocytes # (Manual) Monocytes # (Manual) Eosinophils # (Manual) Basophils # (Manual) PT INR APTT ABG pH ABG pO2 ABG HCO3 ABG O2 Saturation ABG Base Excess ABG Hemoglobin Oxyhemoglobin Sodium 147 H Potassium 3.5 L D Chloride 111.2 H Carbon Dioxide 19 L BUN 29 H Creatinine Glucose 126 H POC Glucose 154 H 144 H Lactic Acid Calcium Ionized Calcium Phosphorus Magnesium Total Bilirubin AST ALT Alkaline Phosphatase Ammonia Total Creatine Kinase CK-MB (CK-2) CK-MB (CK-2) Rel Index Total Protein Albumin Urine WBC (Auto) Vancomycin Trough Salicylates Acetaminophen Plasma/Serum Alcohol Crossmatch 12/16/19 12/16/19 12/16/19 00:22 05:30 05:44 WBC 30.8 H RBC 2.58 L Hgb 7.1 L Hct 22.7 L MCH RDW 19.6 H Plt Count 451 H Lymph % (Auto) [place] % (Auto) [place] # Baso # Seg Neutrophils % Seg Neuts % (Manual) Lymphocytes % (Manual) Monocytes % (Manual) Seg Neutrophils # Seg Neutrophils # Man Lymphocytes # (Manual) Monocytes # (Manual) Eosinophils # (Manual) Basophils # (Manual) PT INR APTT ABG pH ABG pO2 ABG HCO3 ABG O2 Saturation ABG Base Excess ABG Hemoglobin Oxyhemoglobin Sodium Potassium Chloride Carbon Dioxide BUN Creatinine Glucose POC Glucose 139 H 126 H Lactic Acid Calcium Ionized Calcium Phosphorus Magnesium Total Bilirubin AST ALT Alkaline Phosphatase Ammonia Total Creatine Kinase CK-MB (CK-2) CK-MB (CK-2) Rel Index Total Protein Albumin Urine WBC (Auto) Vancomycin Trough Salicylates Acetaminophen Plasma/Serum Alcohol Crossmatch 12/16/19 12/16/19 12/16/19 05:44 11:48 17:37 WBC RBC Hgb Hct MCH RDW Plt Count Lymph % (Auto) [place] % (Auto) [place] # Baso # Seg Neutrophils % Seg Neuts % (Manual) Lymphocytes % (Manual) Monocytes % (Manual) Seg Neutrophils # Seg Neutrophils # Man Lymphocytes # (Manual) Monocytes # (Manual) Eosinophils # (Manual) Basophils # (Manual) PT INR APTT ABG pH ABG pO2 ABG HCO3 ABG O2 Saturation ABG Base Excess ABG Hemoglobin Oxyhemoglobin Sodium Potassium 3.4 L Chloride 109.2 H Carbon Dioxide 19 L BUN 27 H Creatinine Glucose 124 H POC Glucose 125 H 148 H Lactic Acid Calcium Ionized Calcium Phosphorus Magnesium Total Bilirubin AST ALT Alkaline Phosphatase Ammonia Total Creatine Kinase CK-MB (CK-2) CK-MB (CK-2) Rel Index Total Protein Albumin Urine WBC (Auto) Vancomycin Trough Salicylates Acetaminophen Plasma/Serum Alcohol Crossmatch 12/16/19 12/17/19 12/17/19 23:43 05:28 12:47 WBC RBC Hgb Hct MCH RDW Plt Count Lymph % (Auto) [place] % (Auto) [place] # Baso # Seg Neutrophils % Seg Neuts % (Manual) Lymphocytes % (Manual) Monocytes % (Manual) Seg Neutrophils # Seg Neutrophils # Man Lymphocytes # (Manual) Monocytes # (Manual) Eosinophils # (Manual) Basophils # (Manual) PT INR APTT ABG pH ABG pO2 ABG HCO3 ABG O2 Saturation ABG Base Excess ABG Hemoglobin Oxyhemoglobin Sodium Potassium Chloride Carbon Dioxide BUN Creatinine Glucose POC Glucose 142 H 140 H 125 H Lactic Acid Calcium Ionized Calcium Phosphorus Magnesium Total Bilirubin AST ALT Alkaline Phosphatase Ammonia Total Creatine Kinase CK-MB (CK-2) CK-MB (CK-2) Rel Index Total Protein Albumin Urine WBC (Auto) Vancomycin Trough Salicylates Acetaminophen Plasma/Serum Alcohol Crossmatch 12/17/19 12/17/19 12/17/19 17:05 18:00 Unknown WBC RBC Hgb Hct MCH RDW Plt Count Lymph % (Auto) [place] % (Auto) [place] # Baso # Seg Neutrophils % Seg Neuts % (Manual) Lymphocytes % (Manual) Monocytes % (Manual) Seg Neutrophils # Seg Neutrophils # Man Lymphocytes # (Manual) Monocytes # (Manual) Eosinophils # (Manual) Basophils # (Manual) PT INR APTT ABG pH ABG pO2 68.1 L ABG HCO3 ABG O2 Saturation 93.7 L ABG Base Excess ABG Hemoglobin 5.0 L Oxyhemoglobin 91.7 L Sodium Potassium Chloride Carbon Dioxide BUN Creatinine Glucose POC Glucose 140 H Lactic Acid Calcium Ionized Calcium Phosphorus Magnesium Total Bilirubin AST ALT Alkaline Phosphatase Ammonia Total Creatine Kinase CK-MB (CK-2) CK-MB (CK-2) Rel Index Total Protein Albumin Urine WBC (Auto) Vancomycin Trough Salicylates Acetaminophen Plasma/Serum Alcohol Crossmatch 12/18/19 12/18/19 12/18/19 00:16 04:53 04:53 WBC 28.6 H RBC 2.27 L Hgb 6.3 L Hct 19.5 L* MCH RDW 20.0 H Plt Count 497 H Lymph % (Auto) [place] % (Auto) [place] # Baso # Seg Neutrophils % Seg Neuts % (Manual) Lymphocytes % (Manual) Monocytes % (Manual) Seg Neutrophils # Seg Neutrophils # Man Lymphocytes # (Manual) Monocytes # (Manual) Eosinophils # (Manual) Basophils # (Manual) PT INR APTT ABG pH ABG pO2 ABG HCO3 ABG O2 Saturation ABG Base Excess ABG Hemoglobin Oxyhemoglobin Sodium Potassium Chloride 107.9 H Carbon Dioxide 20 L BUN 27 H Creatinine 0.6 L Glucose 116 H POC Glucose 123 H Lactic Acid Calcium Ionized Calcium Phosphorus Magnesium Total Bilirubin AST ALT Alkaline Phosphatase Ammonia Total Creatine Kinase CK-MB (CK-2) CK-MB (CK-2) Rel Index Total Protein Albumin Urine WBC (Auto) Vancomycin Trough Salicylates Acetaminophen Plasma/Serum Alcohol Crossmatch 12/18/19 12/18/19 12/18/19 06:38 11:22 12:08 WBC RBC Hgb Hct MCH RDW Plt Count Lymph % (Auto) [place] % (Auto) [place] # Baso # Seg Neutrophils % Seg Neuts % (Manual) Lymphocytes % (Manual) Monocytes % (Manual) Seg Neutrophils # Seg Neutrophils # Man Lymphocytes # (Manual) Monocytes # (Manual) Eosinophils # (Manual) Basophils # (Manual) PT INR APTT ABG pH ABG pO2 ABG HCO3 ABG O2 Saturation ABG Base Excess ABG Hemoglobin Oxyhemoglobin Sodium Potassium Chloride Carbon Dioxide BUN Creatinine Glucose POC Glucose 120 H 127 H Lactic Acid Calcium Ionized Calcium Phosphorus Magnesium Total Bilirubin AST ALT Alkaline Phosphatase Ammonia Total Creatine Kinase CK-MB (CK-2) CK-MB (CK-2) Rel Index Total Protein Albumin Urine WBC (Auto) Vancomycin Trough Salicylates Acetaminophen Plasma/Serum Alcohol Crossmatch See Detail 12/18/19 12/18/19 12/18/19 14:05 17:49 23:53 WBC RBC Hgb Hct MCH RDW Plt Count Lymph % (Auto) [place] % (Auto) [place] # Baso # Seg Neutrophils % Seg Neuts % (Manual) Lymphocytes % (Manual) Monocytes % (Manual) Seg Neutrophils # Seg Neutrophils # Man Lymphocytes # (Manual) Monocytes # (Manual) Eosinophils # (Manual) Basophils # (Manual) PT INR APTT ABG pH 7.267 L ABG pO2 69.8 L ABG HCO3 ABG O2 Saturation 88.4 L ABG Base Excess ABG Hemoglobin 7.1 L Oxyhemoglobin 86.4 L Sodium Potassium Chloride Carbon Dioxide BUN Creatinine Glucose POC Glucose 157 H 128 H Lactic Acid Calcium Ionized Calcium Phosphorus Magnesium Total Bilirubin AST ALT Alkaline Phosphatase Ammonia Total Creatine Kinase CK-MB (CK-2) CK-MB (CK-2) Rel Index Total Protein Albumin Urine WBC (Auto) Vancomycin Trough Salicylates Acetaminophen Plasma/Serum Alcohol Crossmatch 12/19/19 12/19/19 12/19/19 03:37 03:37 05:25 WBC 31.3 H RBC 2.60 L Hgb 7.6 L Hct 23.0 L MCH RDW 19.4 H Plt Count 530 H Lymph % (Auto) [place] % (Auto) [place] # Baso # Seg Neutrophils % Seg Neuts % (Manual) Lymphocytes % (Manual) Monocytes % (Manual) Seg Neutrophils # Seg Neutrophils # Man Lymphocytes # (Manual) Monocytes # (Manual) Eosinophils # (Manual) Basophils # (Manual) PT INR APTT ABG pH ABG pO2 ABG HCO3 ABG O2 Saturation ABG Base Excess ABG Hemoglobin Oxyhemoglobin Sodium Potassium Chloride Carbon Dioxide 18 L BUN 36 H Creatinine Glucose 111 H POC Glucose 123 H Lactic Acid Calcium Ionized Calcium Phosphorus Magnesium Total Bilirubin AST ALT Alkaline Phosphatase Ammonia Total Creatine Kinase CK-MB (CK-2) CK-MB (CK-2) Rel Index Total Protein Albumin Urine WBC (Auto) Vancomycin Trough Salicylates Acetaminophen Plasma/Serum Alcohol Crossmatch 12/19/19 12/19/19 12/20/19 12:59 18:33 00:00 WBC RBC Hgb Hct MCH RDW Plt Count Lymph % (Auto) [place] % (Auto) [place] # Baso # Seg Neutrophils % Seg Neuts % (Manual) Lymphocytes % (Manual) Monocytes % (Manual) Seg Neutrophils # Seg Neutrophils # Man Lymphocytes # (Manual) Monocytes # (Manual) Eosinophils # (Manual) Basophils # (Manual) PT INR APTT ABG pH ABG pO2 ABG HCO3 ABG O2 Saturation ABG Base Excess ABG Hemoglobin Oxyhemoglobin Sodium Potassium Chloride Carbon Dioxide BUN Creatinine Glucose POC Glucose 130 H 118 H 135 H Lactic Acid Calcium Ionized Calcium Phosphorus Magnesium Total Bilirubin AST ALT Alkaline Phosphatase Ammonia Total Creatine Kinase CK-MB (CK-2) CK-MB (CK-2) Rel Index Total Protein Albumin Urine WBC (Auto) Vancomycin Trough Salicylates Acetaminophen Plasma/Serum Alcohol Crossmatch 12/20/19 12/20/19 12/20/19 05:46 12:31 18:07 WBC RBC Hgb Hct MCH RDW Plt Count Lymph % (Auto) [place] % (Auto) [place] # Baso # Seg Neutrophils % Seg Neuts % (Manual) Lymphocytes % (Manual) Monocytes % (Manual) Seg Neutrophils # Seg Neutrophils # Man Lymphocytes # (Manual) Monocytes # (Manual) Eosinophils # (Manual) Basophils # (Manual) PT INR APTT ABG pH ABG pO2 ABG HCO3 ABG O2 Saturation ABG Base Excess ABG Hemoglobin Oxyhemoglobin Sodium Potassium Chloride Carbon Dioxide BUN Creatinine Glucose POC Glucose 131 H 128 H 134 H Lactic Acid Calcium Ionized Calcium Phosphorus Magnesium Total Bilirubin AST ALT Alkaline Phosphatase Ammonia Total Creatine Kinase CK-MB (CK-2) CK-MB (CK-2) Rel Index Total Protein Albumin Urine WBC (Auto) Vancomycin Trough Salicylates Acetaminophen Plasma/Serum Alcohol Crossmatch 12/21/19 12/21/19 12/21/19 03:28 03:28 07:21 WBC 29.4 H RBC 2.30 L Hgb 6.8 L Hct 20.2 L MCH RDW 20.2 H Plt Count 746 H Lymph % (Auto) [place] % (Auto) [place] # Baso # Seg Neutrophils % Seg Neuts % (Manual) 85.0 H Lymphocytes % (Manual) 8.0 L Monocytes % (Manual) Seg Neutrophils # Seg Neutrophils # Man 25.0 H Lymphocytes # (Manual) Monocytes # (Manual) 1.5 H Eosinophils # (Manual) 0.6 H Basophils # (Manual) PT INR APTT ABG pH ABG pO2 ABG HCO3 ABG O2 Saturation ABG Base Excess ABG Hemoglobin Oxyhemoglobin Sodium Potassium Chloride Carbon Dioxide 17 L BUN 57 H Creatinine 1.4 H D Glucose POC Glucose 124 H Lactic Acid Calcium Ionized Calcium Phosphorus Magnesium Total Bilirubin AST ALT Alkaline Phosphatase Ammonia Total Creatine Kinase CK-MB (CK-2) CK-MB (CK-2) Rel Index Total Protein Albumin Urine WBC (Auto) Vancomycin Trough Salicylates Acetaminophen Plasma/Serum Alcohol Crossmatch 12/21/19 12/21/19 12/21/19 08:56 12:06 14:53 WBC RBC Hgb 7.2 L Hct 22.9 L MCH RDW Plt Count Lymph % (Auto) [place] % (Auto) [place] # Baso # Seg Neutrophils % Seg Neuts % (Manual) Lymphocytes % (Manual) Monocytes % (Manual) Seg Neutrophils # Seg Neutrophils # Man Lymphocytes # (Manual) Monocytes # (Manual) Eosinophils # (Manual) Basophils # (Manual) PT INR APTT ABG pH ABG pO2 ABG HCO3 ABG O2 Saturation ABG Base Excess ABG Hemoglobin Oxyhemoglobin Sodium Potassium Chloride Carbon Dioxide BUN Creatinine Glucose POC Glucose 116 H Lactic Acid Calcium Ionized Calcium Phosphorus Magnesium Total Bilirubin AST ALT Alkaline Phosphatase Ammonia Total Creatine Kinase CK-MB (CK-2) CK-MB (CK-2) Rel Index Total Protein Albumin Urine WBC (Auto) Vancomycin Trough 33.8 H Salicylates Acetaminophen Plasma/Serum Alcohol Crossmatch 12/21/19 12/21/19 12/21/19 14:54 17:27 23:49 WBC RBC Hgb Hct MCH RDW Plt Count Lymph % (Auto) [place] % (Auto) [place] # Baso # Seg Neutrophils % Seg Neuts % (Manual) Lymphocytes % (Manual) Monocytes % (Manual) Seg Neutrophils # Seg Neutrophils # Man Lymphocytes # (Manual) Monocytes # (Manual) Eosinophils # (Manual) Basophils # (Manual) PT INR APTT ABG pH ABG pO2 ABG HCO3 ABG O2 Saturation ABG Base Excess ABG Hemoglobin Oxyhemoglobin Sodium Potassium Chloride Carbon Dioxide BUN Creatinine Glucose POC Glucose 145 H 127 H Lactic Acid Calcium Ionized Calcium Phosphorus Magnesium Total Bilirubin AST ALT Alkaline Phosphatase Ammonia Total Creatine Kinase CK-MB (CK-2) CK-MB (CK-2) Rel Index Total Protein Albumin Urine WBC (Auto) Vancomycin Trough Salicylates Acetaminophen Plasma/Serum Alcohol Crossmatch See Detail 12/22/19 12/22/19 12/22/19 04:43 05:56 08:40 WBC RBC Hgb Hct MCH RDW Plt Count Lymph % (Auto) [place] % (Auto) [place] # Baso # Seg Neutrophils % Seg Neuts % (Manual) Lymphocytes % (Manual) Monocytes % (Manual) Seg Neutrophils # Seg Neutrophils # Man Lymphocytes # (Manual) Monocytes # (Manual) Eosinophils # (Manual) Basophils # (Manual) PT INR APTT ABG pH ABG pO2 75.6 L ABG HCO3 ABG O2 Saturation ABG Base Excess -2.6 L ABG Hemoglobin 6.8 L Oxyhemoglobin 94.6 L Sodium Potassium Chloride Carbon Dioxide 17 L BUN 60 H Creatinine 1.4 H Glucose 126 H POC Glucose 153 H Lactic Acid Calcium Ionized Calcium Phosphorus Magnesium Total Bilirubin AST ALT Alkaline Phosphatase Ammonia Total Creatine Kinase CK-MB (CK-2) CK-MB (CK-2) Rel Index Total Protein Albumin Urine WBC (Auto) Vancomycin Trough Salicylates Acetaminophen Plasma/Serum Alcohol Crossmatch 12/22/19 12/22/19 12/23/19 12:07 17:49 04:30 WBC 22.4 H RBC 2.68 L Hgb 7.6 L Hct 22.9 L MCH RDW 19.9 H Plt Count 998 H Lymph % (Auto) [place] % (Auto) [place] # Baso # Seg Neutrophils % Seg Neuts % (Manual) 88.0 H Lymphocytes % (Manual) 2.0 L Monocytes % (Manual) 9.0 H Seg Neutrophils # Seg Neutrophils # Man 19.7 H Lymphocytes # (Manual) 0.4 L Monocytes # (Manual) 2.0 H Eosinophils # (Manual) Basophils # (Manual) PT INR APTT ABG pH ABG pO2 ABG HCO3 ABG O2 Saturation ABG Base Excess ABG Hemoglobin Oxyhemoglobin Sodium Potassium Chloride Carbon Dioxide BUN Creatinine Glucose POC Glucose 140 H 116 H Lactic Acid Calcium Ionized Calcium Phosphorus Magnesium Total Bilirubin AST ALT Alkaline Phosphatase Ammonia Total Creatine Kinase CK-MB (CK-2) CK-MB (CK-2) Rel Index Total Protein Albumin Urine WBC (Auto) Vancomycin Trough Salicylates Acetaminophen Plasma/Serum Alcohol Crossmatch 12/23/19 12/23/1920 04:30 12:00 18:06 WBC RBC Hgb Hct MCH RDW Plt Count Lymph % (Auto) [place] % (Auto) [place] # Baso # Seg Neutrophils % Seg Neuts % (Manual) Lymphocytes % (Manual) Monocytes % (Manual) Seg Neutrophils # Seg Neutrophils # Man Lymphocytes # (Manual) Monocytes # (Manual) Eosinophils # (Manual) Basophils # (Manual) PT INR APTT ABG pH ABG pO2 ABG HCO3 ABG O2 Saturation ABG Base Excess ABG Hemoglobin Oxyhemoglobin Sodium Potassium 5.2 H Chloride Carbon Dioxide 21 L BUN 69 H Creatinine 1.5 H Glucose 117 H POC Glucose 128 H 138 H Lactic Acid Calcium Ionized Calcium Phosphorus Magnesium Total Bilirubin AST ALT Alkaline Phosphatase Ammonia Total Creatine Kinase CK-MB (CK-2) CK-MB (CK-2) Rel Index Total Protein Albumin Urine WBC (Auto) Vancomycin Trough Salicylates Acetaminophen Plasma/Serum Alcohol Crossmatch 12/23/19 12/24/19 12/24/19 23:46 04:31 05:08 WBC RBC Hgb Hct MCH RDW Plt Count Lymph % (Auto) [place] % (Auto) [place] # Baso # Seg Neutrophils % Seg Neuts % (Manual) Lymphocytes % (Manual) Monocytes % (Manual) Seg Neutrophils # Seg Neutrophils # Man Lymphocytes # (Manual) Monocytes # (Manual) Eosinophils # (Manual) Basophils # (Manual) PT INR APTT ABG pH ABG pO2 ABG HCO3 ABG O2 Saturation ABG Base Excess ABG Hemoglobin Oxyhemoglobin Sodium Potassium 5.3 H Chloride 107.6 H Carbon Dioxide 20 L BUN 72 H Creatinine 1.6 H Glucose 120 H POC Glucose 120 H 140 H Lactic Acid Calcium Ionized Calcium Phosphorus Magnesium Total Bilirubin AST ALT Alkaline Phosphatase Ammonia Total Creatine Kinase CK-MB (CK-2) CK-MB (CK-2) Rel Index Total Protein Albumin Urine WBC (Auto) Vancomycin Trough Salicylates Acetaminophen Plasma/Serum Alcohol Crossmatch 12/24/19 12/24/19 12/25/19 11:58 17:49 03:47 WBC 36.2 H RBC 2.92 L Hgb 8.4 L Hct 26.1 L MCH RDW 20.2 H Plt Count 942 H Lymph % (Auto) [place] % (Auto) [place] # Baso # Seg Neutrophils % Seg Neuts % (Manual) 97.5 H Lymphocytes % (Manual) 1.0 L Monocytes % (Manual) Seg Neutrophils # Seg Neutrophils # Man 35.3 H Lymphocytes # (Manual) 0.4 L Monocytes # (Manual) Eosinophils # (Manual) Basophils # (Manual) PT INR APTT ABG pH ABG pO2 ABG HCO3 ABG O2 Saturation ABG Base Excess ABG Hemoglobin Oxyhemoglobin Sodium Potassium Chloride Carbon Dioxide BUN Creatinine Glucose POC Glucose 146 H 131 H Lactic Acid Calcium Ionized Calcium Phosphorus Magnesium Total Bilirubin AST ALT Alkaline Phosphatase Ammonia Total Creatine Kinase CK-MB (CK-2) CK-MB (CK-2) Rel Index Total Protein Albumin Urine WBC (Auto) Vancomycin Trough Salicylates Acetaminophen Plasma/Serum Alcohol Crossmatch 12/25/19 12/25/19 12/25/19 03:47 05:30 12:23 WBC RBC Hgb Hct MCH RDW Plt Count Lymph % (Auto) [place] % (Auto) [place] # Baso # Seg Neutrophils % Seg Neuts % (Manual) Lymphocytes % (Manual) Monocytes % (Manual) Seg Neutrophils # Seg Neutrophils # Man Lymphocytes # (Manual) Monocytes # (Manual) Eosinophils # (Manual) Basophils # (Manual) PT INR APTT ABG pH ABG pO2 ABG HCO3 ABG O2 Saturation ABG Base Excess ABG Hemoglobin Oxyhemoglobin Sodium Potassium Chloride Carbon Dioxide 15 L BUN 70 H Creatinine 1.7 H Glucose 153 H POC Glucose 169 H 135 H Lactic Acid Calcium Ionized Calcium Phosphorus Magnesium Total Bilirubin AST ALT Alkaline Phosphatase Ammonia Total Creatine Kinase CK-MB (CK-2) CK-MB (CK-2) Rel Index Total Protein Albumin Urine WBC (Auto) Vancomycin Trough Salicylates Acetaminophen Plasma/Serum Alcohol Crossmatch 12/25/19 12/25/19 12/26/19 17:37 23:29 09:47 WBC 22.1 H RBC 2.83 L Hgb 7.9 L Hct 25.5 L MCH RDW 20.0 H Plt Count 894 H Lymph % (Auto) [place] % (Auto) [place] # Baso # Seg Neutrophils % Seg Neuts % (Manual) Lymphocytes % (Manual) Monocytes % (Manual) Seg Neutrophils # Seg Neutrophils # Man Lymphocytes # (Manual) Monocytes # (Manual) Eosinophils # (Manual) Basophils # (Manual) PT INR APTT ABG pH ABG pO2 ABG HCO3 ABG O2 Saturation ABG Base Excess ABG Hemoglobin Oxyhemoglobin Sodium Potassium Chloride Carbon Dioxide BUN Creatinine Glucose POC Glucose 120 H 140 H Lactic Acid Calcium Ionized Calcium Phosphorus Magnesium Total Bilirubin AST ALT Alkaline Phosphatase Ammonia Total Creatine Kinase CK-MB (CK-2) CK-MB (CK-2) Rel Index Total Protein Albumin Urine WBC (Auto) Vancomycin Trough Salicylates Acetaminophen Plasma/Serum Alcohol Crossmatch 12/26/19 12/26/19 12/26/19 09:47 11:46 17:52 WBC RBC Hgb Hct MCH RDW Plt Count Lymph % (Auto) [place] % (Auto) [place] # Baso # Seg Neutrophils % Seg Neuts % (Manual) Lymphocytes % (Manual) Monocytes % (Manual) Seg Neutrophils # Seg Neutrophils # Man Lymphocytes # (Manual) Monocytes # (Manual) Eosinophils # (Manual) Basophils # (Manual) PT INR APTT ABG pH ABG pO2 ABG HCO3 ABG O2 Saturation ABG Base Excess ABG Hemoglobin Oxyhemoglobin Sodium Potassium Chloride Carbon Dioxide 18 L BUN 65 H Creatinine 1.4 H Glucose 132 H POC Glucose 110 H 145 H Lactic Acid Calcium Ionized Calcium Phosphorus Magnesium Total Bilirubin AST ALT Alkaline Phosphatase Ammonia Total Creatine Kinase CK-MB (CK-2) CK-MB (CK-2) Rel Index Total Protein Albumin Urine WBC (Auto) Vancomycin Trough Salicylates Acetaminophen Plasma/Serum Alcohol Crossmatch 12/27/19 12/27/19 12/27/19 00:01 03:42 03:42 WBC 18.0 H RBC 2.86 L Hgb 8.0 L Hct 25.2 L MCH RDW 19.2 H Plt Count 873 H Lymph % (Auto) 8.4 L [place] % (Auto) 7.5 H [place] # 1.4 H Baso # 0.2 H Seg Neutrophils % 82.2 H Seg Neuts % (Manual) Lymphocytes % (Manual) Monocytes % (Manual) Seg Neutrophils # 14.8 H Seg Neutrophils # Man Lymphocytes # (Manual) Monocytes # (Manual) Eosinophils # (Manual) Basophils # (Manual) PT INR APTT ABG pH ABG pO2 ABG HCO3 ABG O2 Saturation ABG Base Excess ABG Hemoglobin Oxyhemoglobin Sodium Potassium Chloride Carbon Dioxide BUN 73 H Creatinine 1.4 H Glucose 119 H POC Glucose 124 H Lactic Acid Calcium Ionized Calcium Phosphorus Magnesium Total Bilirubin AST ALT Alkaline Phosphatase Ammonia Total Creatine Kinase CK-MB (CK-2) CK-MB (CK-2) Rel Index Total Protein Albumin Urine WBC (Auto) Vancomycin Trough Salicylates Acetaminophen Plasma/Serum Alcohol Crossmatch 12/27/19 12/27/19 12/27/19 05:45 11:45 17:29 WBC RBC Hgb Hct MCH RDW Plt Count Lymph % (Auto) [place] % (Auto) [place] # Baso # Seg Neutrophils % Seg Neuts % (Manual) Lymphocytes % (Manual) Monocytes % (Manual) Seg Neutrophils # Seg Neutrophils # Man Lymphocytes # (Manual) Monocytes # (Manual) Eosinophils # (Manual) Basophils # (Manual) PT INR APTT ABG pH ABG pO2 ABG HCO3 ABG O2 Saturation ABG Base Excess ABG Hemoglobin Oxyhemoglobin Sodium Potassium Chloride Carbon Dioxide BUN Creatinine Glucose POC Glucose 131 H 123 H 134 H Lactic Acid Calcium Ionized Calcium Phosphorus Magnesium Total Bilirubin AST ALT Alkaline Phosphatase Ammonia Total Creatine Kinase CK-MB (CK-2) CK-MB (CK-2) Rel Index Total Protein Albumin Urine WBC (Auto) Vancomycin Trough Salicylates Acetaminophen Plasma/Serum Alcohol Crossmatch 12/28/19 12/28/19 12/28/19 00:12 05:14 11:53 WBC RBC Hgb Hct MCH RDW Plt Count Lymph % (Auto) [place] % (Auto) [place] # Baso # Seg Neutrophils % Seg Neuts % (Manual) Lymphocytes % (Manual) Monocytes % (Manual) Seg Neutrophils # Seg Neutrophils # Man Lymphocytes # (Manual) Monocytes # (Manual) Eosinophils # (Manual) Basophils # (Manual) PT INR APTT ABG pH ABG pO2 ABG HCO3 ABG O2 Saturation ABG Base Excess ABG Hemoglobin Oxyhemoglobin Sodium Potassium Chloride Carbon Dioxide BUN Creatinine Glucose POC Glucose 138 H 130 H 146 H Lactic Acid Calcium Ionized Calcium Phosphorus Magnesium Total Bilirubin AST ALT Alkaline Phosphatase Ammonia Total Creatine Kinase CK-MB (CK-2) CK-MB (CK-2) Rel Index Total Protein Albumin Urine WBC (Auto) Vancomycin Trough Salicylates Acetaminophen Plasma/Serum Alcohol Crossmatch 12/28/19 12/29/19 12/29/19 17:39 00:01 18:11 WBC RBC Hgb Hct MCH RDW Plt Count Lymph % (Auto) [place] % (Auto) [place] # Baso # Seg Neutrophils % Seg Neuts % (Manual) Lymphocytes % (Manual) Monocytes % (Manual) Seg Neutrophils # Seg Neutrophils # Man Lymphocytes # (Manual) Monocytes # (Manual) Eosinophils # (Manual) Basophils # (Manual) PT INR APTT ABG pH ABG pO2 ABG HCO3 ABG O2 Saturation ABG Base Excess ABG Hemoglobin Oxyhemoglobin Sodium Potassium Chloride Carbon Dioxide BUN Creatinine Glucose POC Glucose 117 H 139 H 130 H Lactic Acid Calcium Ionized Calcium Phosphorus Magnesium Total Bilirubin AST ALT Alkaline Phosphatase Ammonia Total Creatine Kinase CK-MB (CK-2) CK-MB (CK-2) Rel Index Total Protein Albumin Urine WBC (Auto) Vancomycin Trough Salicylates Acetaminophen Plasma/Serum Alcohol Crossmatch 12/29/19 12/30/19 12/30/19 23:09 00:02 01:06 WBC 16.7 H RBC 2.91 L Hgb 8.2 L Hct 25.4 L MCH RDW 18.7 H Plt Count 708 H Lymph % (Auto) 9.4 L [place] % (Auto) [place] # 0.9 H Baso # Seg Neutrophils % 83.5 H Seg Neuts % (Manual) Lymphocytes % (Manual) Monocytes % (Manual) Seg Neutrophils # 14.0 H Seg Neutrophils # Man Lymphocytes # (Manual) Monocytes # (Manual) Eosinophils # (Manual) Basophils # (Manual) PT INR APTT ABG pH ABG pO2 ABG HCO3 ABG O2 Saturation ABG Base Excess ABG Hemoglobin Oxyhemoglobin Sodium Potassium Chloride Carbon Dioxide BUN Creatinine Glucose POC Glucose 120 H 114 H Lactic Acid Calcium Ionized Calcium Phosphorus Magnesium Total Bilirubin AST ALT Alkaline Phosphatase Ammonia Total Creatine Kinase CK-MB (CK-2) CK-MB (CK-2) Rel Index Total Protein Albumin Urine WBC (Auto) Vancomycin Trough Salicylates Acetaminophen Plasma/Serum Alcohol Crossmatch 12/30/19 12/30/19 12/30/19 01:06 04:23 05:18 WBC RBC Hgb Hct MCH RDW Plt Count Lymph % (Auto) [place] % (Auto) [place] # Baso # Seg Neutrophils % Seg Neuts % (Manual) Lymphocytes % (Manual) Monocytes % (Manual) Seg Neutrophils # Seg Neutrophils # Man Lymphocytes # (Manual) Monocytes # (Manual) Eosinophils # (Manual) Basophils # (Manual) PT INR APTT ABG pH ABG pO2 ABG HCO3 ABG O2 Saturation ABG Base Excess ABG Hemoglobin 8.3 L Oxyhemoglobin Sodium Potassium Chloride Carbon Dioxide BUN 70 H Creatinine Glucose 122 H POC Glucose 130 H Lactic Acid Calcium Ionized Calcium Phosphorus Magnesium Total Bilirubin AST ALT Alkaline Phosphatase Ammonia Total Creatine Kinase CK-MB (CK-2) CK-MB (CK-2) Rel Index Total Protein Albumin Urine WBC (Auto) Vancomycin Trough Salicylates Acetaminophen Plasma/Serum Alcohol Crossmatch 12/30/19 12/30/19 12/30/19 05:40 12:17 17:43 WBC RBC Hgb Hct MCH RDW Plt Count Lymph % (Auto) [place] % (Auto) [place] # Baso # Seg Neutrophils % Seg Neuts % (Manual) Lymphocytes % (Manual) Monocytes % (Manual) Seg Neutrophils # Seg Neutrophils # Man Lymphocytes # (Manual) Monocytes # (Manual) Eosinophils # (Manual) Basophils # (Manual) PT INR APTT ABG pH ABG pO2 ABG HCO3 ABG O2 Saturation ABG Base Excess ABG Hemoglobin Oxyhemoglobin Sodium Potassium Chloride Carbon Dioxide BUN Creatinine Glucose POC Glucose 135 H 132 H 118 H Lactic Acid Calcium Ionized Calcium Phosphorus Magnesium Total Bilirubin AST ALT Alkaline Phosphatase Ammonia Total Creatine Kinase CK-MB (CK-2) CK-MB (CK-2) Rel Index Total Protein Albumin Urine WBC (Auto) Vancomycin Trough Salicylates Acetaminophen Plasma/Serum Alcohol Crossmatch 12/30/19 12/31/19 12/31/19 23:29 05:19 17:50 WBC RBC Hgb Hct MCH RDW Plt Count Lymph % (Auto) [place] % (Auto) [place] # Baso # Seg Neutrophils % Seg Neuts % (Manual) Lymphocytes % (Manual) Monocytes % (Manual) Seg Neutrophils # Seg Neutrophils # Man Lymphocytes # (Manual) Monocytes # (Manual) Eosinophils # (Manual) Basophils # (Manual) PT INR APTT ABG pH ABG pO2 ABG HCO3 ABG O2 Saturation ABG Base Excess ABG Hemoglobin Oxyhemoglobin Sodium Potassium Chloride Carbon Dioxide BUN Creatinine Glucose POC Glucose 114 H 109 H 116 H Lactic Acid Calcium Ionized Calcium Phosphorus Magnesium Total Bilirubin AST ALT Alkaline Phosphatase Ammonia Total Creatine Kinase CK-MB (CK-2) CK-MB (CK-2) Rel Index Total Protein Albumin Urine WBC (Auto) Vancomycin Trough Salicylates Acetaminophen Plasma/Serum Alcohol Crossmatch 01/01/20 01/01/20 01/01/20 00:10 05:19 12:02 WBC RBC Hgb Hct MCH RDW Plt Count Lymph % (Auto) [place] % (Auto) [place] # Baso # Seg Neutrophils % Seg Neuts % (Manual) Lymphocytes % (Manual) Monocytes % (Manual) Seg Neutrophils # Seg Neutrophils # Man Lymphocytes # (Manual) Monocytes # (Manual) Eosinophils # (Manual) Basophils # (Manual) PT INR APTT ABG pH ABG pO2 ABG HCO3 ABG O2 Saturation ABG Base Excess ABG Hemoglobin Oxyhemoglobin Sodium Potassium Chloride Carbon Dioxide BUN Creatinine Glucose POC Glucose 131 H 122 H 136 H Lactic Acid Calcium Ionized Calcium Phosphorus Magnesium Total Bilirubin AST ALT Alkaline Phosphatase Ammonia Total Creatine Kinase CK-MB (CK-2) CK-MB (CK-2) Rel Index Total Protein Albumin Urine WBC (Auto) Vancomycin Trough Salicylates Acetaminophen Plasma/Serum Alcohol Crossmatch 01/02/20 01/02/20 01/02/20 00:24 05:36 11:41 WBC RBC Hgb Hct MCH RDW Plt Count Lymph % (Auto) [place] % (Auto) [place] # Baso # Seg Neutrophils % Seg Neuts % (Manual) Lymphocytes % (Manual) Monocytes % (Manual) Seg Neutrophils # Seg Neutrophils # Man Lymphocytes # (Manual) Monocytes # (Manual) Eosinophils # (Manual) Basophils # (Manual) PT INR APTT ABG pH ABG pO2 ABG HCO3 ABG O2 Saturation ABG Base Excess ABG Hemoglobin Oxyhemoglobin Sodium Potassium Chloride Carbon Dioxide BUN Creatinine Glucose POC Glucose 119 H 109 H 125 H Lactic Acid Calcium Ionized Calcium Phosphorus Magnesium Total Bilirubin AST ALT Alkaline Phosphatase Ammonia Total Creatine Kinase CK-MB (CK-2) CK-MB (CK-2) Rel Index Total Protein Albumin Urine WBC (Auto) Vancomycin Trough Salicylates Acetaminophen Plasma/Serum Alcohol Crossmatch 01/02/20 01/03/20 01/03/20 17:49 05:29 12:13 WBC RBC Hgb Hct MCH RDW Plt Count Lymph % (Auto) [place] % (Auto) [place] # Baso # Seg Neutrophils % Seg Neuts % (Manual) Lymphocytes % (Manual) Monocytes % (Manual) Seg Neutrophils # Seg Neutrophils # Man Lymphocytes # (Manual) Monocytes # (Manual) Eosinophils # (Manual) Basophils # (Manual) PT INR APTT ABG pH ABG pO2 ABG HCO3 ABG O2 Saturation ABG Base Excess ABG Hemoglobin Oxyhemoglobin Sodium Potassium Chloride Carbon Dioxide BUN Creatinine Glucose POC Glucose 130 H 132 H 113 H Lactic Acid Calcium Ionized Calcium Phosphorus Magnesium Total Bilirubin AST ALT Alkaline Phosphatase Ammonia Total Creatine Kinase CK-MB (CK-2) CK-MB (CK-2) Rel Index Total Protein Albumin Urine WBC (Auto) Vancomycin Trough Salicylates Acetaminophen Plasma/Serum Alcohol Crossmatch 01/03/20 01/04/20 01/04/20 17:32 00:19 05:26 WBC RBC Hgb Hct MCH RDW Plt Count Lymph % (Auto) [place] % (Auto) [place] # Baso # Seg Neutrophils % Seg Neuts % (Manual) Lymphocytes % (Manual) Monocytes % (Manual) Seg Neutrophils # Seg Neutrophils # Man Lymphocytes # (Manual) Monocytes # (Manual) Eosinophils # (Manual) Basophils # (Manual) PT INR APTT ABG pH ABG pO2 ABG HCO3 ABG O2 Saturation ABG Base Excess ABG Hemoglobin Oxyhemoglobin Sodium Potassium Chloride Carbon Dioxide BUN Creatinine Glucose POC Glucose 127 H 141 H 129 H Lactic Acid Calcium Ionized Calcium Phosphorus Magnesium Total Bilirubin AST ALT Alkaline Phosphatase Ammonia Total Creatine Kinase CK-MB (CK-2) CK-MB (CK-2) Rel Index Total Protein Albumin Urine WBC (Auto) Vancomycin Trough Salicylates Acetaminophen Plasma/Serum Alcohol Crossmatch 01/04/20 01/04/20 01/05/20 11:39 17:29 05:22 WBC RBC Hgb Hct MCH RDW Plt Count Lymph % (Auto) [place] % (Auto) [place] # Baso # Seg Neutrophils % Seg Neuts % (Manual) Lymphocytes % (Manual) Monocytes % (Manual) Seg Neutrophils # Seg Neutrophils # Man Lymphocytes # (Manual) Monocytes # (Manual) Eosinophils # (Manual) Basophils # (Manual) PT INR APTT ABG pH ABG pO2 ABG HCO3 ABG O2 Saturation ABG Base Excess ABG Hemoglobin Oxyhemoglobin Sodium Potassium Chloride Carbon Dioxide BUN Creatinine Glucose POC Glucose 167 H 132 H 121 H Lactic Acid Calcium Ionized Calcium Phosphorus Magnesium Total Bilirubin AST ALT Alkaline Phosphatase Ammonia Total Creatine Kinase CK-MB (CK-2) CK-MB (CK-2) Rel Index Total Protein Albumin Urine WBC (Auto) Vancomycin Trough Salicylates Acetaminophen Plasma/Serum Alcohol Crossmatch 01/05/20 01/05/20 01/05/20 12:25 17:40 18:06 WBC RBC Hgb Hct MCH RDW Plt Count Lymph % (Auto) [place] % (Auto) [place] # Baso # Seg Neutrophils % Seg Neuts % (Manual) Lymphocytes % (Manual) Monocytes % (Manual) Seg Neutrophils # Seg Neutrophils # Man Lymphocytes # (Manual) Monocytes # (Manual) Eosinophils # (Manual) Basophils # (Manual) PT INR APTT ABG pH 7.472 H ABG pO2 99.2 H ABG HCO3 ABG O2 Saturation ABG Base Excess ABG Hemoglobin 7.8 L Oxyhemoglobin Sodium Potassium Chloride Carbon Dioxide BUN Creatinine Glucose POC Glucose 106 H 110 H Lactic Acid Calcium Ionized Calcium Phosphorus Magnesium Total Bilirubin AST ALT Alkaline Phosphatase Ammonia Total Creatine Kinase CK-MB (CK-2) CK-MB (CK-2) Rel Index Total Protein Albumin Urine WBC (Auto) Vancomycin Trough Salicylates Acetaminophen Plasma/Serum Alcohol Crossmatch 01/06/20 01/06/20 01/06/20 00:11 05:16 11:30 WBC RBC Hgb Hct MCH RDW Plt Count Lymph % (Auto) [place] % (Auto) [place] # Baso # Seg Neutrophils % Seg Neuts % (Manual) Lymphocytes % (Manual) Monocytes % (Manual) Seg Neutrophils # Seg Neutrophils # Man Lymphocytes # (Manual) Monocytes # (Manual) Eosinophils # (Manual) Basophils # (Manual) PT INR APTT ABG pH ABG pO2 ABG HCO3 ABG O2 Saturation ABG Base Excess ABG Hemoglobin Oxyhemoglobin Sodium Potassium Chloride Carbon Dioxide BUN Creatinine Glucose POC Glucose 108 H 124 H 125 H Lactic Acid Calcium Ionized Calcium Phosphorus Magnesium Total Bilirubin AST ALT Alkaline Phosphatase Ammonia Total Creatine Kinase CK-MB (CK-2) CK-MB (CK-2) Rel Index Total Protein Albumin Urine WBC (Auto) Vancomycin Trough Salicylates Acetaminophen Plasma/Serum Alcohol Crossmatch 01/06/20 01/06/20 01/07/20 17:53 23:51 04:12 WBC 16.5 H RBC 3.29 L Hgb 9.3 L Hct 28.1 L MCH RDW 18.2 H Plt Count 526 H Lymph % (Auto) 8.4 L [place] % (Auto) [place] # 1.0 H Baso # Seg Neutrophils % 84.4 H Seg Neuts % (Manual) Lymphocytes % (Manual) Monocytes % (Manual) Seg Neutrophils # 13.9 H Seg Neutrophils # Man Lymphocytes # (Manual) Monocytes # (Manual) Eosinophils # (Manual) Basophils # (Manual) PT INR APTT ABG pH ABG pO2 ABG HCO3 ABG O2 Saturation ABG Base Excess ABG Hemoglobin Oxyhemoglobin Sodium Potassium Chloride Carbon Dioxide BUN Creatinine Glucose POC Glucose 166 H 128 H Lactic Acid Calcium Ionized Calcium Phosphorus Magnesium Total Bilirubin AST ALT Alkaline Phosphatase Ammonia Total Creatine Kinase CK-MB (CK-2) CK-MB (CK-2) Rel Index Total Protein Albumin Urine WBC (Auto) Vancomycin Trough Salicylates Acetaminophen Plasma/Serum Alcohol Crossmatch 01/07/20 01/07/20 01/07/20 04:12 04:45 11:51 WBC RBC Hgb Hct MCH RDW Plt Count Lymph % (Auto) [place] % (Auto) [place] # Baso # Seg Neutrophils % Seg Neuts % (Manual) Lymphocytes % (Manual) Monocytes % (Manual) Seg Neutrophils # Seg Neutrophils # Man Lymphocytes # (Manual) Monocytes # (Manual) Eosinophils # (Manual) Basophils # (Manual) PT INR APTT ABG pH ABG pO2 ABG HCO3 ABG O2 Saturation ABG Base Excess ABG Hemoglobin Oxyhemoglobin Sodium 136 L Potassium Chloride Carbon Dioxide 21 L BUN 44 H Creatinine 0.6 L Glucose 124 H POC Glucose 134 H 138 H Lactic Acid Calcium Ionized Calcium Phosphorus Magnesium Total Bilirubin AST ALT Alkaline Phosphatase Ammonia Total Creatine Kinase CK-MB (CK-2) CK-MB (CK-2) Rel Index Total Protein Albumin Urine WBC (Auto) Vancomycin Trough Salicylates Acetaminophen Plasma/Serum Alcohol Crossmatch 01/07/20 01/08/20 01/08/20 17:36 00:33 05:29 WBC RBC Hgb Hct MCH RDW Plt Count Lymph % (Auto) [place] % (Auto) [place] # Baso # Seg Neutrophils % Seg Neuts % (Manual) Lymphocytes % (Manual) Monocytes % (Manual) Seg Neutrophils # Seg Neutrophils # Man Lymphocytes # (Manual) Monocytes # (Manual) Eosinophils # (Manual) Basophils # (Manual) PT INR APTT ABG pH ABG pO2 ABG HCO3 ABG O2 Saturation ABG Base Excess ABG Hemoglobin Oxyhemoglobin Sodium Potassium Chloride Carbon Dioxide BUN Creatinine Glucose POC Glucose 128 H 119 H 124 H Lactic Acid Calcium Ionized Calcium Phosphorus Magnesium Total Bilirubin AST ALT Alkaline Phosphatase Ammonia Total Creatine Kinase CK-MB (CK-2) CK-MB (CK-2) Rel Index Total Protein Albumin Urine WBC (Auto) Vancomycin Trough Salicylates Acetaminophen Plasma/Serum Alcohol Crossmatch 01/08/20 01/08/20 01/08/20 12:51 20:25 23:22 WBC RBC Hgb Hct MCH RDW Plt Count Lymph % (Auto) [place] % (Auto) [place] # Baso # Seg Neutrophils % Seg Neuts % (Manual) Lymphocytes % (Manual) Monocytes % (Manual) Seg Neutrophils # Seg Neutrophils # Man Lymphocytes # (Manual) Monocytes # (Manual) Eosinophils # (Manual) Basophils # (Manual) PT INR APTT ABG pH ABG pO2 132.2 H ABG HCO3 ABG O2 Saturation ABG Base Excess ABG Hemoglobin Oxyhemoglobin Sodium Potassium Chloride Carbon Dioxide BUN Creatinine Glucose POC Glucose 128 H 127 H Lactic Acid Calcium Ionized Calcium Phosphorus Magnesium Total Bilirubin AST ALT Alkaline Phosphatase Ammonia Total Creatine Kinase CK-MB (CK-2) CK-MB (CK-2) Rel Index Total Protein Albumin Urine WBC (Auto) Vancomycin Trough Salicylates Acetaminophen Plasma/Serum Alcohol Crossmatch 01/09/20 01/09/20 01/09/20 05:48 08:51 11:29 WBC RBC Hgb Hct MCH RDW Plt Count Lymph % (Auto) [place] % (Auto) [place] # Baso # Seg Neutrophils % Seg Neuts % (Manual) Lymphocytes % (Manual) Monocytes % (Manual) Seg Neutrophils # Seg Neutrophils # Man Lymphocytes # (Manual) Monocytes # (Manual) Eosinophils # (Manual) Basophils # (Manual) PT INR APTT ABG pH ABG pO2 94.3 H ABG HCO3 ABG O2 Saturation ABG Base Excess ABG Hemoglobin 9.5 L Oxyhemoglobin Sodium Potassium Chloride Carbon Dioxide BUN Creatinine Glucose POC Glucose 120 H 112 H Lactic Acid Calcium Ionized Calcium Phosphorus Magnesium Total Bilirubin AST ALT Alkaline Phosphatase Ammonia Total Creatine Kinase CK-MB (CK-2) CK-MB (CK-2) Rel Index Total Protein Albumin Urine WBC (Auto) Vancomycin Trough Salicylates Acetaminophen Plasma/Serum Alcohol Crossmatch 01/09/20 01/10/20 01/10/20 17:57 05:17 12:28 WBC RBC Hgb Hct MCH RDW Plt Count Lymph % (Auto) [place] % (Auto) [place] # Baso # Seg Neutrophils % Seg Neuts % (Manual) Lymphocytes % (Manual) Monocytes % (Manual) Seg Neutrophils # Seg Neutrophils # Man Lymphocytes # (Manual) Monocytes # (Manual) Eosinophils # (Manual) Basophils # (Manual) PT INR APTT ABG pH ABG pO2 ABG HCO3 ABG O2 Saturation ABG Base Excess ABG Hemoglobin Oxyhemoglobin Sodium Potassium Chloride Carbon Dioxide BUN Creatinine Glucose POC Glucose 122 H 115 H 116 H Lactic Acid Calcium Ionized Calcium Phosphorus Magnesium Total Bilirubin AST ALT Alkaline Phosphatase Ammonia Total Creatine Kinase CK-MB (CK-2) CK-MB (CK-2) Rel Index Total Protein Albumin Urine WBC (Auto) Vancomycin Trough Salicylates Acetaminophen Plasma/Serum Alcohol Crossmatch 01/10/20 01/10/20 01/11/20 18:25 23:47 06:05 WBC RBC Hgb Hct MCH RDW Plt Count Lymph % (Auto) [place] % (Auto) [place] # Baso # Seg Neutrophils % Seg Neuts % (Manual) Lymphocytes % (Manual) Monocytes % (Manual) Seg Neutrophils # Seg Neutrophils # Man Lymphocytes # (Manual) Monocytes # (Manual) Eosinophils # (Manual) Basophils # (Manual) PT INR APTT ABG pH ABG pO2 ABG HCO3 ABG O2 Saturation ABG Base Excess ABG Hemoglobin Oxyhemoglobin Sodium Potassium Chloride Carbon Dioxide BUN Creatinine Glucose POC Glucose 123 H 115 H 151 H Lactic Acid Calcium Ionized Calcium Phosphorus Magnesium Total Bilirubin AST ALT Alkaline Phosphatase Ammonia Total Creatine Kinase CK-MB (CK-2) CK-MB (CK-2) Rel Index Total Protein Albumin Urine WBC (Auto) Vancomycin Trough Salicylates Acetaminophen Plasma/Serum Alcohol Crossmatch 01/11/20 01/11/20 01/11/20 07:00 07:00 12:27 WBC 11.8 H RBC 3.40 L Hgb 9.4 L Hct 29.3 L MCH RDW 18.1 H Plt Count 549 H Lymph % (Auto) [place] % (Auto) 9.1 H [place] # 1.1 H Baso # Seg Neutrophils % 73.3 H Seg Neuts % (Manual) Lymphocytes % (Manual) Monocytes % (Manual) Seg Neutrophils # 8.7 H Seg Neutrophils # Man Lymphocytes # (Manual) Monocytes # (Manual) Eosinophils # (Manual) Basophils # (Manual) PT INR APTT ABG pH ABG pO2 ABG HCO3 ABG O2 Saturation ABG Base Excess ABG Hemoglobin Oxyhemoglobin Sodium 134 L Potassium Chloride 97.7 L Carbon Dioxide 21 L BUN 38 H Creatinine 0.5 L Glucose 168 H POC Glucose 117 H Lactic Acid Calcium 10.5 H Ionized Calcium Phosphorus Magnesium Total Bilirubin AST ALT Alkaline Phosphatase Ammonia Total Creatine Kinase CK-MB (CK-2) CK-MB (CK-2) Rel Index Total Protein Albumin Urine WBC (Auto) Vancomycin Trough Salicylates Acetaminophen Plasma/Serum Alcohol Crossmatch 01/11/20 01/12/20 01/12/20 18:19 00:53 05:24 WBC RBC Hgb Hct MCH RDW Plt Count Lymph % (Auto) [place] % (Auto) [place] # Baso # Seg Neutrophils % Seg Neuts % (Manual) Lymphocytes % (Manual) Monocytes % (Manual) Seg Neutrophils # Seg Neutrophils # Man Lymphocytes # (Manual) Monocytes # (Manual) Eosinophils # (Manual) Basophils # (Manual) PT INR APTT ABG pH ABG pO2 ABG HCO3 ABG O2 Saturation ABG Base Excess ABG Hemoglobin Oxyhemoglobin Sodium Potassium Chloride Carbon Dioxide BUN Creatinine Glucose POC Glucose 126 H 126 H 128 H Lactic Acid Calcium Ionized Calcium Phosphorus Magnesium Total Bilirubin AST ALT Alkaline Phosphatase Ammonia Total Creatine Kinase CK-MB (CK-2) CK-MB (CK-2) Rel Index Total Protein Albumin Urine WBC (Auto) Vancomycin Trough Salicylates Acetaminophen Plasma/Serum Alcohol Crossmatch 01/12/20 01/12/20 01/13/20 13:39 18:02 00:27 WBC RBC Hgb Hct MCH RDW Plt Count Lymph % (Auto) [place] % (Auto) [place] # Baso # Seg Neutrophils % Seg Neuts % (Manual) Lymphocytes % (Manual) Monocytes % (Manual) Seg Neutrophils # Seg Neutrophils # Man Lymphocytes # (Manual) Monocytes # (Manual) Eosinophils # (Manual) Basophils # (Manual) PT INR APTT ABG pH ABG pO2 ABG HCO3 ABG O2 Saturation ABG Base Excess ABG Hemoglobin Oxyhemoglobin Sodium Potassium Chloride Carbon Dioxide BUN Creatinine Glucose POC Glucose 146 H 125 H 131 H Lactic Acid Calcium Ionized Calcium Phosphorus Magnesium Total Bilirubin AST ALT Alkaline Phosphatase Ammonia Total Creatine Kinase CK-MB (CK-2) CK-MB (CK-2) Rel Index Total Protein Albumin Urine WBC (Auto) Vancomycin Trough Salicylates Acetaminophen Plasma/Serum Alcohol Crossmatch 01/13/20 01/13/20 01/13/20 05:44 11:54 17:18 WBC RBC Hgb Hct MCH RDW Plt Count Lymph % (Auto) [place] % (Auto) [place] # Baso # Seg Neutrophils % Seg Neuts % (Manual) Lymphocytes % (Manual) Monocytes % (Manual) Seg Neutrophils # Seg Neutrophils # Man Lymphocytes # (Manual) Monocytes # (Manual) Eosinophils # (Manual) Basophils # (Manual) PT INR APTT ABG pH ABG pO2 ABG HCO3 ABG O2 Saturation ABG Base Excess ABG Hemoglobin Oxyhemoglobin Sodium Potassium Chloride Carbon Dioxide BUN Creatinine Glucose POC Glucose 148 H 140 H 130 H Lactic Acid Calcium Ionized Calcium Phosphorus Magnesium Total Bilirubin AST ALT Alkaline Phosphatase Ammonia Total Creatine Kinase CK-MB (CK-2) CK-MB (CK-2) Rel Index Total Protein Albumin Urine WBC (Auto) Vancomycin Trough Salicylates Acetaminophen Plasma/Serum Alcohol Crossmatch 01/14/20 01/14/20 01/14/20 00:16 05:45 12:19 WBC RBC Hgb Hct MCH RDW Plt Count Lymph % (Auto) [place] % (Auto) [place] # Baso # Seg Neutrophils % Seg Neuts % (Manual) Lymphocytes % (Manual) Monocytes % (Manual) Seg Neutrophils # Seg Neutrophils # Man Lymphocytes # (Manual) Monocytes # (Manual) Eosinophils # (Manual) Basophils # (Manual) PT INR APTT ABG pH ABG pO2 ABG HCO3 ABG O2 Saturation ABG Base Excess ABG Hemoglobin Oxyhemoglobin Sodium Potassium Chloride Carbon Dioxide BUN Creatinine Glucose POC Glucose 125 H 146 H 147 H Lactic Acid Calcium Ionized Calcium Phosphorus Magnesium Total Bilirubin AST ALT Alkaline Phosphatase Ammonia Total Creatine Kinase CK-MB (CK-2) CK-MB (CK-2) Rel Index Total Protein Albumin Urine WBC (Auto) Vancomycin Trough Salicylates Acetaminophen Plasma/Serum Alcohol Crossmatch 01/14/20 01/14/20 01/15/20 18:10 23:54 05:14 WBC RBC Hgb Hct MCH RDW Plt Count Lymph % (Auto) [place] % (Auto) [place] # Baso # Seg Neutrophils % Seg Neuts % (Manual) Lymphocytes % (Manual) Monocytes % (Manual) Seg Neutrophils # Seg Neutrophils # Man Lymphocytes # (Manual) Monocytes # (Manual) Eosinophils # (Manual) Basophils # (Manual) PT INR APTT ABG pH ABG pO2 ABG HCO3 ABG O2 Saturation ABG Base Excess ABG Hemoglobin Oxyhemoglobin Sodium Potassium Chloride Carbon Dioxide BUN Creatinine Glucose POC Glucose 136 H 109 H 111 H Lactic Acid Calcium Ionized Calcium Phosphorus Magnesium Total Bilirubin AST ALT Alkaline Phosphatase Ammonia Total Creatine Kinase CK-MB (CK-2) CK-MB (CK-2) Rel Index Total Protein Albumin Urine WBC (Auto) Vancomycin Trough Salicylates Acetaminophen Plasma/Serum Alcohol Crossmatch 01/15/20 01/15/20 01/16/20 12:34 23:25 05:06 WBC RBC Hgb Hct MCH RDW Plt Count Lymph % (Auto) [place] % (Auto) [place] # Baso # Seg Neutrophils % Seg Neuts % (Manual) Lymphocytes % (Manual) Monocytes % (Manual) Seg Neutrophils # Seg Neutrophils # Man Lymphocytes # (Manual) Monocytes # (Manual) Eosinophils # (Manual) Basophils # (Manual) PT INR APTT ABG pH ABG pO2 ABG HCO3 ABG O2 Saturation ABG Base Excess ABG Hemoglobin Oxyhemoglobin Sodium Potassium Chloride Carbon Dioxide BUN Creatinine Glucose POC Glucose 131 H 120 H 121 H Lactic Acid Calcium Ionized Calcium Phosphorus Magnesium Total Bilirubin AST ALT Alkaline Phosphatase Ammonia Total Creatine Kinase CK-MB (CK-2) CK-MB (CK-2) Rel Index Total Protein Albumin Urine WBC (Auto) Vancomycin Trough Salicylates Acetaminophen Plasma/Serum Alcohol Crossmatch 01/16/20 01/16/20 01/17/20 12:15 23:46 05:32 WBC 13.6 H RBC 3.27 L Hgb 9.3 L Hct 28.5 L MCH RDW 17.0 H Plt Count 490 H Lymph % (Auto) 13.1 L [place] % (Auto) [place] # 1.0 H Baso # Seg Neutrophils % 77.5 H Seg Neuts % (Manual) Lymphocytes % (Manual) Monocytes % (Manual) Seg Neutrophils # 10.5 H Seg Neutrophils # Man Lymphocytes # (Manual) Monocytes # (Manual) Eosinophils # (Manual) Basophils # (Manual) PT INR APTT ABG pH ABG pO2 ABG HCO3 ABG O2 Saturation ABG Base Excess ABG Hemoglobin Oxyhemoglobin Sodium Potassium Chloride Carbon Dioxide BUN Creatinine Glucose POC Glucose 152 H 107 H Lactic Acid Calcium Ionized Calcium Phosphorus Magnesium Total Bilirubin AST ALT Alkaline Phosphatase Ammonia Total Creatine Kinase CK-MB (CK-2) CK-MB (CK-2) Rel Index Total Protein Albumin Urine WBC (Auto) Vancomycin Trough Salicylates Acetaminophen Plasma/Serum Alcohol Crossmatch 01/17/20 01/17/20 01/17/20 06:47 12:16 17:21 WBC RBC Hgb Hct MCH RDW Plt Count Lymph % (Auto) [place] % (Auto) [place] # Baso # Seg Neutrophils % Seg Neuts % (Manual) Lymphocytes % (Manual) Monocytes % (Manual) Seg Neutrophils # Seg Neutrophils # Man Lymphocytes # (Manual) Monocytes # (Manual) Eosinophils # (Manual) Basophils # (Manual) PT INR APTT ABG pH ABG pO2 ABG HCO3 ABG O2 Saturation ABG Base Excess ABG Hemoglobin Oxyhemoglobin Sodium Potassium Chloride Carbon Dioxide BUN Creatinine Glucose POC Glucose 112 H 145 H 150 H Lactic Acid Calcium Ionized Calcium Phosphorus Magnesium Total Bilirubin AST ALT Alkaline Phosphatase Ammonia Total Creatine Kinase CK-MB (CK-2) CK-MB (CK-2) Rel Index Total Protein Albumin Urine WBC (Auto) Vancomycin Trough Salicylates Acetaminophen Plasma/Serum Alcohol Crossmatch 01/17/20 01/18/20 01/18/20 23:34 05:47 12:43 WBC RBC Hgb Hct MCH RDW Plt Count Lymph % (Auto) [place] % (Auto) [place] # Baso # Seg Neutrophils % Seg Neuts % (Manual) Lymphocytes % (Manual) Monocytes % (Manual) Seg Neutrophils # Seg Neutrophils # Man Lymphocytes # (Manual) Monocytes # (Manual) Eosinophils # (Manual) Basophils # (Manual) PT INR APTT ABG pH ABG pO2 ABG HCO3 ABG O2 Saturation ABG Base Excess ABG Hemoglobin Oxyhemoglobin Sodium Potassium Chloride Carbon Dioxide BUN Creatinine Glucose POC Glucose 160 H 130 H 124 H Lactic Acid Calcium Ionized Calcium Phosphorus Magnesium Total Bilirubin AST ALT Alkaline Phosphatase Ammonia Total Creatine Kinase CK-MB (CK-2) CK-MB (CK-2) Rel Index Total Protein Albumin Urine WBC (Auto) Vancomycin Trough Salicylates Acetaminophen Plasma/Serum Alcohol Crossmatch 01/18/20 01/19/20 01/19/20 18:26 00:14 06:24 WBC RBC Hgb Hct MCH RDW Plt Count Lymph % (Auto) [place] % (Auto) [place] # Baso # Seg Neutrophils % Seg Neuts % (Manual) Lymphocytes % (Manual) Monocytes % (Manual) Seg Neutrophils # Seg Neutrophils # Man Lymphocytes # (Manual) Monocytes # (Manual) Eosinophils # (Manual) Basophils # (Manual) PT INR APTT ABG pH ABG pO2 ABG HCO3 ABG O2 Saturation ABG Base Excess ABG Hemoglobin Oxyhemoglobin Sodium Potassium Chloride Carbon Dioxide BUN Creatinine Glucose POC Glucose 119 H 114 H 144 H Lactic Acid Calcium Ionized Calcium Phosphorus Magnesium Total Bilirubin AST ALT Alkaline Phosphatase Ammonia Total Creatine Kinase CK-MB (CK-2) CK-MB (CK-2) Rel Index Total Protein Albumin Urine WBC (Auto) Vancomycin Trough Salicylates Acetaminophen Plasma/Serum Alcohol Crossmatch 01/19/20 01/19/20 01/20/20 12:24 17:50 12:06 WBC RBC Hgb Hct MCH RDW Plt Count Lymph % (Auto) [place] % (Auto) [place] # Baso # Seg Neutrophils % Seg Neuts % (Manual) Lymphocytes % (Manual) Monocytes % (Manual) Seg Neutrophils # Seg Neutrophils # Man Lymphocytes # (Manual) Monocytes # (Manual) Eosinophils # (Manual) Basophils # (Manual) PT INR APTT ABG pH ABG pO2 ABG HCO3 ABG O2 Saturation ABG Base Excess ABG Hemoglobin Oxyhemoglobin Sodium Potassium Chloride Carbon Dioxide BUN Creatinine Glucose POC Glucose 132 H 144 H 135 H Lactic Acid Calcium Ionized Calcium Phosphorus Magnesium Total Bilirubin AST ALT Alkaline Phosphatase Ammonia Total Creatine Kinase CK-MB (CK-2) CK-MB (CK-2) Rel Index Total Protein Albumin Urine WBC (Auto) Vancomycin Trough Salicylates Acetaminophen Plasma/Serum Alcohol Crossmatch 01/21/20 01/21/20 01/21/20 05:46 13:02 23:49 WBC RBC Hgb Hct MCH RDW Plt Count Lymph % (Auto) [place] % (Auto) [place] # Baso # Seg Neutrophils % Seg Neuts % (Manual) Lymphocytes % (Manual) Monocytes % (Manual) Seg Neutrophils # Seg Neutrophils # Man Lymphocytes # (Manual) Monocytes # (Manual) Eosinophils # (Manual) Basophils # (Manual) PT INR APTT ABG pH ABG pO2 ABG HCO3 ABG O2 Saturation ABG Base Excess ABG Hemoglobin Oxyhemoglobin Sodium Potassium Chloride Carbon Dioxide BUN Creatinine Glucose POC Glucose 114 H 136 H 120 H Lactic Acid Calcium Ionized Calcium Phosphorus Magnesium Total Bilirubin AST ALT Alkaline Phosphatase Ammonia Total Creatine Kinase CK-MB (CK-2) CK-MB (CK-2) Rel Index Total Protein Albumin Urine WBC (Auto) Vancomycin Trough Salicylates Acetaminophen Plasma/Serum Alcohol Crossmatch 01/22/20 01/22/20 01/22/20 05:41 11:44 16:31 WBC RBC Hgb Hct MCH RDW Plt Count Lymph % (Auto) [place] % (Auto) [place] # Baso # Seg Neutrophils % Seg Neuts % (Manual) Lymphocytes % (Manual) Monocytes % (Manual) Seg Neutrophils # Seg Neutrophils # Man Lymphocytes # (Manual) Monocytes # (Manual) Eosinophils # (Manual) Basophils # (Manual) PT INR APTT ABG pH ABG pO2 ABG HCO3 ABG O2 Saturation ABG Base Excess ABG Hemoglobin Oxyhemoglobin Sodium Potassium Chloride Carbon Dioxide BUN Creatinine Glucose POC Glucose 124 H 173 H 111 H Lactic Acid Calcium Ionized Calcium Phosphorus Magnesium Total Bilirubin AST ALT Alkaline Phosphatase Ammonia Total Creatine Kinase CK-MB (CK-2) CK-MB (CK-2) Rel Index Total Protein Albumin Urine WBC (Auto) Vancomycin Trough Salicylates Acetaminophen Plasma/Serum Alcohol Crossmatch 01/22/20 01/23/20 01/23/20 23:25 05:15 12:15 WBC RBC Hgb Hct MCH RDW Plt Count Lymph % (Auto) [place] % (Auto) [place] # Baso # Seg Neutrophils % Seg Neuts % (Manual) Lymphocytes % (Manual) Monocytes % (Manual) Seg Neutrophils # Seg Neutrophils # Man Lymphocytes # (Manual) Monocytes # (Manual) Eosinophils # (Manual) Basophils # (Manual) PT INR APTT ABG pH ABG pO2 ABG HCO3 ABG O2 Saturation ABG Base Excess ABG Hemoglobin Oxyhemoglobin Sodium Potassium Chloride Carbon Dioxide BUN Creatinine Glucose POC Glucose 134 H 117 H 129 H Lactic Acid Calcium Ionized Calcium Phosphorus Magnesium Total Bilirubin AST ALT Alkaline Phosphatase Ammonia Total Creatine Kinase CK-MB (CK-2) CK-MB (CK-2) Rel Index Total Protein Albumin Urine WBC (Auto) Vancomycin Trough Salicylates Acetaminophen Plasma/Serum Alcohol Crossmatch 01/23/20 01/23/20 01/23/20 16:58 21:17 23:47 WBC RBC Hgb Hct MCH RDW Plt Count Lymph % (Auto) [place] % (Auto) [place] # Baso # Seg Neutrophils % Seg Neuts % (Manual) Lymphocytes % (Manual) Monocytes % (Manual) Seg Neutrophils # Seg Neutrophils # Man Lymphocytes # (Manual) Monocytes # (Manual) Eosinophils # (Manual) Basophils # (Manual) PT INR APTT ABG pH ABG pO2 ABG HCO3 ABG O2 Saturation ABG Base Excess ABG Hemoglobin Oxyhemoglobin Sodium Potassium Chloride Carbon Dioxide BUN Creatinine Glucose POC Glucose 156 H 185 H 156 H Lactic Acid Calcium Ionized Calcium Phosphorus Magnesium Total Bilirubin AST ALT Alkaline Phosphatase Ammonia Total Creatine Kinase CK-MB (CK-2) CK-MB (CK-2) Rel Index Total Protein Albumin Urine WBC (Auto) Vancomycin Trough Salicylates Acetaminophen Plasma/Serum Alcohol Crossmatch 01/24/20 01/24/20 01/24/20 04:47 04:47 05:59 WBC 17.8 H RBC 3.60 L Hgb Hct MCH RDW 16.2 H Plt Count 688 H Lymph % (Auto) 11.8 L [place] % (Auto) 7.5 H [place] # 1.3 H Baso # Seg Neutrophils % 79.9 H Seg Neuts % (Manual) Lymphocytes % (Manual) Monocytes % (Manual) Seg Neutrophils # 14.2 H Seg Neutrophils # Man Lymphocytes # (Manual) Monocytes # (Manual) Eosinophils # (Manual) Basophils # (Manual) PT INR APTT ABG pH ABG pO2 ABG HCO3 ABG O2 Saturation ABG Base Excess ABG Hemoglobin Oxyhemoglobin Sodium 131 L Potassium Chloride 91.2 L Carbon Dioxide BUN 22 H Creatinine 0.3 L Glucose 123 H POC Glucose 147 H Lactic Acid Calcium 10.9 H Ionized Calcium Phosphorus Magnesium Total Bilirubin AST ALT Alkaline Phosphatase Ammonia Total Creatine Kinase CK-MB (CK-2) CK-MB (CK-2) Rel Index Total Protein Albumin Urine WBC (Auto) Vancomycin Trough Salicylates Acetaminophen Plasma/Serum Alcohol Crossmatch 01/24/20 01/24/20 01/25/20 11:47 16:45 00:18 WBC RBC Hgb Hct MCH RDW Plt Count Lymph % (Auto) [place] % (Auto) [place] # Baso # Seg Neutrophils % Seg Neuts % (Manual) Lymphocytes % (Manual) Monocytes % (Manual) Seg Neutrophils # Seg Neutrophils # Man Lymphocytes # (Manual) Monocytes # (Manual) Eosinophils # (Manual) Basophils # (Manual) PT INR APTT ABG pH ABG pO2 ABG HCO3 ABG O2 Saturation ABG Base Excess ABG Hemoglobin Oxyhemoglobin Sodium Potassium Chloride Carbon Dioxide BUN Creatinine Glucose POC Glucose 114 H 108 H 119 H Lactic Acid Calcium Ionized Calcium Phosphorus Magnesium Total Bilirubin AST ALT Alkaline Phosphatase Ammonia Total Creatine Kinase CK-MB (CK-2) CK-MB (CK-2) Rel Index Total Protein Albumin Urine WBC (Auto) Vancomycin Trough Salicylates Acetaminophen Plasma/Serum Alcohol Crossmatch 01/25/20 01/25/20 01/25/20 07:18 11:58 16:56 WBC RBC Hgb Hct MCH RDW Plt Count Lymph % (Auto) [place] % (Auto) [place] # Baso # Seg Neutrophils % Seg Neuts % (Manual) Lymphocytes % (Manual) Monocytes % (Manual) Seg Neutrophils # Seg Neutrophils # Man Lymphocytes # (Manual) Monocytes # (Manual) Eosinophils # (Manual) Basophils # (Manual) PT INR APTT ABG pH ABG pO2 ABG HCO3 ABG O2 Saturation ABG Base Excess ABG Hemoglobin Oxyhemoglobin Sodium Potassium Chloride Carbon Dioxide BUN Creatinine Glucose POC Glucose 136 H 136 H 147 H Lactic Acid Calcium Ionized Calcium Phosphorus Magnesium Total Bilirubin AST ALT Alkaline Phosphatase Ammonia Total Creatine Kinase CK-MB (CK-2) CK-MB (CK-2) Rel Index Total Protein Albumin Urine WBC (Auto) Vancomycin Trough Salicylates Acetaminophen Plasma/Serum Alcohol Crossmatch 01/26/20 01/26/20 01/26/20 00:29 05:59 05:59 WBC 12.8 H RBC Hgb Hct MCH RDW 16.4 H Plt Count 743 H Lymph % (Auto) [place] % (Auto) [place] # 0.9 H Baso # Seg Neutrophils % 76.2 H Seg Neuts % (Manual) Lymphocytes % (Manual) Monocytes % (Manual) Seg Neutrophils # 9.8 H Seg Neutrophils # Man Lymphocytes # (Manual) Monocytes # (Manual) Eosinophils # (Manual) Basophils # (Manual) PT INR APTT ABG pH ABG pO2 ABG HCO3 ABG O2 Saturation ABG Base Excess ABG Hemoglobin Oxyhemoglobin Sodium 132 L Potassium Chloride 90.9 L Carbon Dioxide BUN 23 H Creatinine 0.4 L Glucose 122 H POC Glucose 107 H Lactic Acid Calcium 11.0 H Ionized Calcium Phosphorus Magnesium Total Bilirubin AST ALT Alkaline Phosphatase Ammonia Total Creatine Kinase CK-MB (CK-2) CK-MB (CK-2) Rel Index Total Protein Albumin Urine WBC (Auto) Vancomycin Trough Salicylates Acetaminophen Plasma/Serum Alcohol Crossmatch 01/26/20 01/26/20 01/26/20 06:27 12:06 16:49 WBC RBC Hgb Hct MCH RDW Plt Count Lymph % (Auto) [place] % (Auto) [place] # Baso # Seg Neutrophils % Seg Neuts % (Manual) Lymphocytes % (Manual) Monocytes % (Manual) Seg Neutrophils # Seg Neutrophils # Man Lymphocytes # (Manual) Monocytes # (Manual) Eosinophils # (Manual) Basophils # (Manual) PT INR APTT ABG pH ABG pO2 ABG HCO3 ABG O2 Saturation ABG Base Excess ABG Hemoglobin Oxyhemoglobin Sodium Potassium Chloride Carbon Dioxide BUN Creatinine Glucose POC Glucose 132 H 132 H 110 H Lactic Acid Calcium Ionized Calcium Phosphorus Magnesium Total Bilirubin AST ALT Alkaline Phosphatase Ammonia Total Creatine Kinase CK-MB (CK-2) CK-MB (CK-2) Rel Index Total Protein Albumin Urine WBC (Auto) Vancomycin Trough Salicylates Acetaminophen Plasma/Serum Alcohol Crossmatch 01/27/20 01/27/20 01/27/20 00:08 11:49 16:24 WBC RBC Hgb Hct MCH RDW Plt Count Lymph % (Auto) [place] % (Auto) [place] # Baso # Seg Neutrophils % Seg Neuts % (Manual) Lymphocytes % (Manual) Monocytes % (Manual) Seg Neutrophils # Seg Neutrophils # Man Lymphocytes # (Manual) Monocytes # (Manual) Eosinophils # (Manual) Basophils # (Manual) PT INR APTT ABG pH ABG pO2 ABG HCO3 ABG O2 Saturation ABG Base Excess ABG Hemoglobin Oxyhemoglobin Sodium Potassium Chloride Carbon Dioxide BUN Creatinine Glucose POC Glucose 107 H 119 H 129 H Lactic Acid Calcium Ionized Calcium Phosphorus Magnesium Total Bilirubin AST ALT Alkaline Phosphatase Ammonia Total Creatine Kinase CK-MB (CK-2) CK-MB (CK-2) Rel Index Total Protein Albumin Urine WBC (Auto) Vancomycin Trough Salicylates Acetaminophen Plasma/Serum Alcohol Crossmatch 01/27/20 01/28/20 01/28/20 18:28 01:00 06:22 WBC RBC Hgb Hct MCH RDW Plt Count Lymph % (Auto) [place] % (Auto) [place] # Baso # Seg Neutrophils % Seg Neuts % (Manual) Lymphocytes % (Manual) Monocytes % (Manual) Seg Neutrophils # Seg Neutrophils # Man Lymphocytes # (Manual) Monocytes # (Manual) Eosinophils # (Manual) Basophils # (Manual) PT INR APTT ABG pH ABG pO2 ABG HCO3 ABG O2 Saturation ABG Base Excess ABG Hemoglobin Oxyhemoglobin Sodium Potassium Chloride Carbon Dioxide BUN Creatinine Glucose POC Glucose 126 H 121 H 114 H Lactic Acid Calcium Ionized Calcium Phosphorus Magnesium Total Bilirubin AST ALT Alkaline Phosphatase Ammonia Total Creatine Kinase CK-MB (CK-2) CK-MB (CK-2) Rel Index Total Protein Albumin Urine WBC (Auto) Vancomycin Trough Salicylates Acetaminophen Plasma/Serum Alcohol Crossmatch 01/28/20 01/28/20 01/29/20 11:47 18:00 00:05 WBC RBC Hgb Hct MCH RDW Plt Count Lymph % (Auto) [place] % (Auto) [place] # Baso # Seg Neutrophils % Seg Neuts % (Manual) Lymphocytes % (Manual) Monocytes % (Manual) Seg Neutrophils # Seg Neutrophils # Man Lymphocytes # (Manual) Monocytes # (Manual) Eosinophils # (Manual) Basophils # (Manual) PT INR APTT ABG pH ABG pO2 ABG HCO3 ABG O2 Saturation ABG Base Excess ABG Hemoglobin Oxyhemoglobin Sodium Potassium Chloride Carbon Dioxide BUN Creatinine Glucose POC Glucose 106 H 117 H 127 H Lactic Acid Calcium Ionized Calcium Phosphorus Magnesium Total Bilirubin AST ALT Alkaline Phosphatase Ammonia Total Creatine Kinase CK-MB (CK-2) CK-MB (CK-2) Rel Index Total Protein Albumin Urine WBC (Auto) Vancomycin Trough Salicylates Acetaminophen Plasma/Serum Alcohol Crossmatch 01/29/20 01/29/20 01/29/20 06:04 11:40 16:38 WBC RBC Hgb Hct MCH RDW Plt Count Lymph % (Auto) [place] % (Auto) [place] # Baso # Seg Neutrophils % Seg Neuts % (Manual) Lymphocytes % (Manual) Monocytes % (Manual) Seg Neutrophils # Seg Neutrophils # Man Lymphocytes # (Manual) Monocytes # (Manual) Eosinophils # (Manual) Basophils # (Manual) PT INR APTT ABG pH ABG pO2 ABG HCO3 ABG O2 Saturation ABG Base Excess ABG Hemoglobin Oxyhemoglobin Sodium Potassium Chloride Carbon Dioxide BUN Creatinine Glucose POC Glucose 147 H 139 H 143 H Lactic Acid Calcium Ionized Calcium Phosphorus Magnesium Total Bilirubin AST ALT Alkaline Phosphatase Ammonia Total Creatine Kinase CK-MB (CK-2) CK-MB (CK-2) Rel Index Total Protein Albumin Urine WBC (Auto) Vancomycin Trough Salicylates Acetaminophen Plasma/Serum Alcohol Crossmatch 01/29/20 01/30/20 01/30/20 23:46 06:43 12:07 WBC RBC Hgb Hct MCH RDW Plt Count Lymph % (Auto) [place] % (Auto) [place] # Baso # Seg Neutrophils % Seg Neuts % (Manual) Lymphocytes % (Manual) Monocytes % (Manual) Seg Neutrophils # Seg Neutrophils # Man Lymphocytes # (Manual) Monocytes # (Manual) Eosinophils # (Manual) Basophils # (Manual) PT INR APTT ABG pH ABG pO2 ABG HCO3 ABG O2 Saturation ABG Base Excess ABG Hemoglobin Oxyhemoglobin Sodium Potassium Chloride Carbon Dioxide BUN Creatinine Glucose POC Glucose 122 H 122 H 134 H Lactic Acid Calcium Ionized Calcium Phosphorus Magnesium Total Bilirubin AST ALT Alkaline Phosphatase Ammonia Total Creatine Kinase CK-MB (CK-2) CK-MB (CK-2) Rel Index Total Protein Albumin Urine WBC (Auto) Vancomycin Trough Salicylates Acetaminophen Plasma/Serum Alcohol Crossmatch 01/30/20 01/31/20 01/31/20 17:59 00:52 05:54 WBC RBC Hgb Hct MCH RDW Plt Count Lymph % (Auto) [place] % (Auto) [place] # Baso # Seg Neutrophils % Seg Neuts % (Manual) Lymphocytes % (Manual) Monocytes % (Manual) Seg Neutrophils # Seg Neutrophils # Man Lymphocytes # (Manual) Monocytes # (Manual) Eosinophils # (Manual) Basophils # (Manual) PT INR APTT ABG pH ABG pO2 ABG HCO3 ABG O2 Saturation ABG Base Excess ABG Hemoglobin Oxyhemoglobin Sodium Potassium Chloride Carbon Dioxide BUN Creatinine Glucose POC Glucose 116 H 127 H 127 H Lactic Acid Calcium Ionized Calcium Phosphorus Magnesium Total Bilirubin AST ALT Alkaline Phosphatase Ammonia Total Creatine Kinase CK-MB (CK-2) CK-MB (CK-2) Rel Index Total Protein Albumin Urine WBC (Auto) Vancomycin Trough Salicylates Acetaminophen Plasma/Serum Alcohol Crossmatch 01/31/20 02/01/20 02/01/20 12:20 00:48 12:21 WBC RBC Hgb Hct MCH RDW Plt Count Lymph % (Auto) [place] % (Auto) [place] # Baso # Seg Neutrophils % Seg Neuts % (Manual) Lymphocytes % (Manual) Monocytes % (Manual) Seg Neutrophils # Seg Neutrophils # Man Lymphocytes # (Manual) Monocytes # (Manual) Eosinophils # (Manual) Basophils # (Manual) PT INR APTT ABG pH ABG pO2 ABG HCO3 ABG O2 Saturation ABG Base Excess ABG Hemoglobin Oxyhemoglobin Sodium Potassium Chloride Carbon Dioxide BUN Creatinine Glucose POC Glucose 126 H 154 H 123 H Lactic Acid Calcium Ionized Calcium Phosphorus Magnesium Total Bilirubin AST ALT Alkaline Phosphatase Ammonia Total Creatine Kinase CK-MB (CK-2) CK-MB (CK-2) Rel Index Total Protein Albumin Urine WBC (Auto) Vancomycin Trough Salicylates Acetaminophen Plasma/Serum Alcohol Crossmatch 02/01/20 02/02/20 02/02/20 23:58 06:08 11:50 WBC RBC Hgb Hct MCH RDW Plt Count Lymph % (Auto) [place] % (Auto) [place] # Baso # Seg Neutrophils % Seg Neuts % (Manual) Lymphocytes % (Manual) Monocytes % (Manual) Seg Neutrophils # Seg Neutrophils # Man Lymphocytes # (Manual) Monocytes # (Manual) Eosinophils # (Manual) Basophils # (Manual) PT INR APTT ABG pH ABG pO2 ABG HCO3 ABG O2 Saturation ABG Base Excess ABG Hemoglobin Oxyhemoglobin Sodium Potassium Chloride Carbon Dioxide BUN Creatinine Glucose POC Glucose 125 H 144 H 131 H Lactic Acid Calcium Ionized Calcium Phosphorus Magnesium Total Bilirubin AST ALT Alkaline Phosphatase Ammonia Total Creatine Kinase CK-MB (CK-2) CK-MB (CK-2) Rel Index Total Protein Albumin Urine WBC (Auto) Vancomycin Trough Salicylates Acetaminophen Plasma/Serum Alcohol Crossmatch 02/02/20 02/03/20 02/03/20 17:53 00:14 05:47 WBC RBC Hgb Hct MCH RDW Plt Count Lymph % (Auto) [place] % (Auto) [place] # Baso # Seg Neutrophils % Seg Neuts % (Manual) Lymphocytes % (Manual) Monocytes % (Manual) Seg Neutrophils # Seg Neutrophils # Man Lymphocytes # (Manual) Monocytes # (Manual) Eosinophils # (Manual) Basophils # (Manual) PT INR APTT ABG pH ABG pO2 ABG HCO3 ABG O2 Saturation ABG Base Excess ABG Hemoglobin Oxyhemoglobin Sodium Potassium Chloride Carbon Dioxide BUN Creatinine Glucose POC Glucose 108 H 122 H 118 H Lactic Acid Calcium Ionized Calcium Phosphorus Magnesium Total Bilirubin AST ALT Alkaline Phosphatase Ammonia Total Creatine Kinase CK-MB (CK-2) CK-MB (CK-2) Rel Index Total Protein Albumin Urine WBC (Auto) Vancomycin Trough Salicylates Acetaminophen Plasma/Serum Alcohol Crossmatch 02/03/20 02/03/20 02/03/20 05:59 05:59 11:49 WBC RBC 3.48 L Hgb Hct 29.9 L MCH RDW 16.2 H Plt Count 707 H Lymph % (Auto) [place] % (Auto) 9.3 H [place] # 0.9 H Baso # Seg Neutrophils % Seg Neuts % (Manual) Lymphocytes % (Manual) Monocytes % (Manual) Seg Neutrophils # Seg Neutrophils # Man Lymphocytes # (Manual) Monocytes # (Manual) Eosinophils # (Manual) Basophils # (Manual) PT INR APTT ABG pH ABG pO2 ABG HCO3 ABG O2 Saturation ABG Base Excess ABG Hemoglobin Oxyhemoglobin Sodium 136 L Potassium Chloride 93.4 L Carbon Dioxide BUN 20 H Creatinine 0.5 L Glucose 101 H POC Glucose 133 H Lactic Acid Calcium 10.8 H Ionized Calcium Phosphorus Magnesium Total Bilirubin AST ALT Alkaline Phosphatase Ammonia Total Creatine Kinase CK-MB (CK-2) CK-MB (CK-2) Rel Index Total Protein Albumin Urine WBC (Auto) Vancomycin Trough Salicylates Acetaminophen Plasma/Serum Alcohol Crossmatch 02/03/20 02/04/20 02/04/20 23:19 05:37 23:56 WBC RBC Hgb Hct MCH RDW Plt Count Lymph % (Auto) [place] % (Auto) [place] # Baso # Seg Neutrophils % Seg Neuts % (Manual) Lymphocytes % (Manual) Monocytes % (Manual) Seg Neutrophils # Seg Neutrophils # Man Lymphocytes # (Manual) Monocytes # (Manual) Eosinophils # (Manual) Basophils # (Manual) PT INR APTT ABG pH ABG pO2 ABG HCO3 ABG O2 Saturation ABG Base Excess ABG Hemoglobin Oxyhemoglobin Sodium Potassium Chloride Carbon Dioxide BUN Creatinine Glucose POC Glucose 135 H 108 H 158 H Lactic Acid Calcium Ionized Calcium Phosphorus Magnesium Total Bilirubin AST ALT Alkaline Phosphatase Ammonia Total Creatine Kinase CK-MB (CK-2) CK-MB (CK-2) Rel Index Total Protein Albumin Urine WBC (Auto) Vancomycin Trough Salicylates Acetaminophen Plasma/Serum Alcohol Crossmatch 02/05/20 02/05/20 02/06/20 05:33 23:24 05:50 WBC RBC Hgb Hct MCH RDW Plt Count Lymph % (Auto) [place] % (Auto) [place] # Baso # Seg Neutrophils % Seg Neuts % (Manual) Lymphocytes % (Manual) Monocytes % (Manual) Seg Neutrophils # Seg Neutrophils # Man Lymphocytes # (Manual) Monocytes # (Manual) Eosinophils # (Manual) Basophils # (Manual) PT INR APTT ABG pH ABG pO2 ABG HCO3 ABG O2 Saturation ABG Base Excess ABG Hemoglobin Oxyhemoglobin Sodium Potassium Chloride Carbon Dioxide BUN Creatinine Glucose POC Glucose 152 H 158 H 110 H Lactic Acid Calcium Ionized Calcium Phosphorus Magnesium Total Bilirubin AST ALT Alkaline Phosphatase Ammonia Total Creatine Kinase CK-MB (CK-2) CK-MB (CK-2) Rel Index Total Protein Albumin Urine WBC (Auto) Vancomycin Trough Salicylates Acetaminophen Plasma/Serum Alcohol Crossmatch 02/06/20 02/07/20 02/07/20 16:03 00:13 05:27 WBC RBC Hgb Hct MCH RDW Plt Count Lymph % (Auto) [place] % (Auto) [place] # Baso # Seg Neutrophils % Seg Neuts % (Manual) Lymphocytes % (Manual) Monocytes % (Manual) Seg Neutrophils # Seg Neutrophils # Man Lymphocytes # (Manual) Monocytes # (Manual) Eosinophils # (Manual) Basophils # (Manual) PT INR APTT ABG pH ABG pO2 ABG HCO3 ABG O2 Saturation ABG Base Excess ABG Hemoglobin Oxyhemoglobin Sodium Potassium Chloride Carbon Dioxide BUN Creatinine Glucose POC Glucose 130 H 115 H 115 H Lactic Acid Calcium Ionized Calcium Phosphorus Magnesium Total Bilirubin AST ALT Alkaline Phosphatase Ammonia Total Creatine Kinase CK-MB (CK-2) CK-MB (CK-2) Rel Index Total Protein Albumin Urine WBC (Auto) Vancomycin Trough Salicylates Acetaminophen Plasma/Serum Alcohol Crossmatch 02/07/20 02/07/20 02/08/20 11:42 17:23 00:37 WBC RBC Hgb Hct MCH RDW Plt Count Lymph % (Auto) [place] % (Auto) [place] # Baso # Seg Neutrophils % Seg Neuts % (Manual) Lymphocytes % (Manual) Monocytes % (Manual) Seg Neutrophils # Seg Neutrophils # Man Lymphocytes # (Manual) Monocytes # (Manual) Eosinophils # (Manual) Basophils # (Manual) PT INR APTT ABG pH ABG pO2 ABG HCO3 ABG O2 Saturation ABG Base Excess ABG Hemoglobin Oxyhemoglobin Sodium Potassium Chloride Carbon Dioxide BUN Creatinine Glucose POC Glucose 113 H 114 H 136 H Lactic Acid Calcium Ionized Calcium Phosphorus Magnesium Total Bilirubin AST ALT Alkaline Phosphatase Ammonia Total Creatine Kinase CK-MB (CK-2) CK-MB (CK-2) Rel Index Total Protein Albumin Urine WBC (Auto) Vancomycin Trough Salicylates Acetaminophen Plasma/Serum Alcohol Crossmatch 02/08/20 02/08/20 02/08/20 08:52 11:42 17:02 WBC RBC Hgb Hct MCH RDW Plt Count Lymph % (Auto) [place] % (Auto) [place] # Baso # Seg Neutrophils % Seg Neuts % (Manual) Lymphocytes % (Manual) Monocytes % (Manual) Seg Neutrophils # Seg Neutrophils # Man Lymphocytes # (Manual) Monocytes # (Manual) Eosinophils # (Manual) Basophils # (Manual) PT INR APTT ABG pH ABG pO2 ABG HCO3 ABG O2 Saturation ABG Base Excess ABG Hemoglobin Oxyhemoglobin Sodium 136 L Potassium Chloride 95.7 L Carbon Dioxide BUN 21 H Creatinine 0.4 L Glucose POC Glucose 128 H 145 H Lactic Acid Calcium 10.4 H Ionized Calcium Phosphorus Magnesium Total Bilirubin AST ALT Alkaline Phosphatase Ammonia Total Creatine Kinase CK-MB (CK-2) CK-MB (CK-2) Rel Index Total Protein Albumin Urine WBC (Auto) Vancomycin Trough Salicylates Acetaminophen Plasma/Serum Alcohol Crossmatch 02/09/20 02/09/20 02/09/20 01:05 11:52 16:19 WBC RBC Hgb Hct MCH RDW Plt Count Lymph % (Auto) [place] % (Auto) [place] # Baso # Seg Neutrophils % Seg Neuts % (Manual) Lymphocytes % (Manual) Monocytes % (Manual) Seg Neutrophils # Seg Neutrophils # Man Lymphocytes # (Manual) Monocytes # (Manual) Eosinophils # (Manual) Basophils # (Manual) PT INR APTT ABG pH ABG pO2 ABG HCO3 ABG O2 Saturation ABG Base Excess ABG Hemoglobin Oxyhemoglobin Sodium Potassium Chloride Carbon Dioxide BUN Creatinine Glucose POC Glucose 117 H 141 H 113 H Lactic Acid Calcium Ionized Calcium Phosphorus Magnesium Total Bilirubin AST ALT Alkaline Phosphatase Ammonia Total Creatine Kinase CK-MB (CK-2) CK-MB (CK-2) Rel Index Total Protein Albumin Urine WBC (Auto) Vancomycin Trough Salicylates Acetaminophen Plasma/Serum Alcohol Crossmatch 02/10/20 02/10/20 02/10/20 05:25 12:50 17:08 WBC RBC Hgb Hct MCH RDW Plt Count Lymph % (Auto) [place] % (Auto) [place] # Baso # Seg Neutrophils % Seg Neuts % (Manual) Lymphocytes % (Manual) Monocytes % (Manual) Seg Neutrophils # Seg Neutrophils # Man Lymphocytes # (Manual) Monocytes # (Manual) Eosinophils # (Manual) Basophils # (Manual) PT INR APTT ABG pH ABG pO2 ABG HCO3 ABG O2 Saturation ABG Base Excess ABG Hemoglobin Oxyhemoglobin Sodium Potassium Chloride Carbon Dioxide BUN Creatinine Glucose POC Glucose 136 H 127 H 111 H Lactic Acid Calcium Ionized Calcium Phosphorus Magnesium Total Bilirubin AST ALT Alkaline Phosphatase Ammonia Total Creatine Kinase CK-MB (CK-2) CK-MB (CK-2) Rel Index Total Protein Albumin Urine WBC (Auto) Vancomycin Trough Salicylates Acetaminophen Plasma/Serum Alcohol Crossmatch 02/10/20 02/11/20 02/11/20 23:55 06:11 12:07 WBC RBC Hgb Hct MCH RDW Plt Count Lymph % (Auto) [place] % (Auto) [place] # Baso # Seg Neutrophils % Seg Neuts % (Manual) Lymphocytes % (Manual) Monocytes % (Manual) Seg Neutrophils # Seg Neutrophils # Man Lymphocytes # (Manual) Monocytes # (Manual) Eosinophils # (Manual) Basophils # (Manual) PT INR APTT ABG pH ABG pO2 ABG HCO3 ABG O2 Saturation ABG Base Excess ABG Hemoglobin Oxyhemoglobin Sodium Potassium Chloride Carbon Dioxide BUN Creatinine Glucose POC Glucose 129 H 128 H 141 H Lactic Acid Calcium Ionized Calcium Phosphorus Magnesium Total Bilirubin AST ALT Alkaline Phosphatase Ammonia Total Creatine Kinase CK-MB (CK-2) CK-MB (CK-2) Rel Index Total Protein Albumin Urine WBC (Auto) Vancomycin Trough Salicylates Acetaminophen Plasma/Serum Alcohol Crossmatch 02/11/20 02/12/20 02/13/20 18:22 02:39 06:45 WBC RBC Hgb Hct MCH RDW Plt Count Lymph % (Auto) [place] % (Auto) [place] # Baso # Seg Neutrophils % Seg Neuts % (Manual) Lymphocytes % (Manual) Monocytes % (Manual) Seg Neutrophils # Seg Neutrophils # Man Lymphocytes # (Manual) Monocytes # (Manual) Eosinophils # (Manual) Basophils # (Manual) PT INR APTT ABG pH ABG pO2 ABG HCO3 ABG O2 Saturation ABG Base Excess ABG Hemoglobin Oxyhemoglobin Sodium Potassium Chloride Carbon Dioxide BUN Creatinine Glucose POC Glucose 118 H 107 H 124 H Lactic Acid Calcium Ionized Calcium Phosphorus Magnesium Total Bilirubin AST ALT Alkaline Phosphatase Ammonia Total Creatine Kinase CK-MB (CK-2) CK-MB (CK-2) Rel Index Total Protein Albumin Urine WBC (Auto) Vancomycin Trough Salicylates Acetaminophen Plasma/Serum Alcohol Crossmatch 02/13/20 02/13/20 02/14/20 12:26 18:19 00:21 WBC RBC Hgb Hct MCH RDW Plt Count Lymph % (Auto) [place] % (Auto) [place] # Baso # Seg Neutrophils % Seg Neuts % (Manual) Lymphocytes % (Manual) Monocytes % (Manual) Seg Neutrophils # Seg Neutrophils # Man Lymphocytes # (Manual) Monocytes # (Manual) Eosinophils # (Manual) Basophils # (Manual) PT INR APTT ABG pH ABG pO2 ABG HCO3 ABG O2 Saturation ABG Base Excess ABG Hemoglobin Oxyhemoglobin Sodium Potassium Chloride Carbon Dioxide BUN Creatinine Glucose POC Glucose 124 H 118 H 130 H Lactic Acid Calcium Ionized Calcium Phosphorus Magnesium Total Bilirubin AST ALT Alkaline Phosphatase Ammonia Total Creatine Kinase CK-MB (CK-2) CK-MB (CK-2) Rel Index Total Protein Albumin Urine WBC (Auto) Vancomycin Trough Salicylates Acetaminophen Plasma/Serum Alcohol Crossmatch 02/14/20 02/14/20 02/16/20 11:19 16:16 00:58 WBC RBC Hgb Hct MCH RDW Plt Count Lymph % (Auto) [place] % (Auto) [place] # Baso # Seg Neutrophils % Seg Neuts % (Manual) Lymphocytes % (Manual) Monocytes % (Manual) Seg Neutrophils # Seg Neutrophils # Man Lymphocytes # (Manual) Monocytes # (Manual) Eosinophils # (Manual) Basophils # (Manual) PT INR APTT ABG pH ABG pO2 ABG HCO3 ABG O2 Saturation ABG Base Excess ABG Hemoglobin Oxyhemoglobin Sodium Potassium Chloride Carbon Dioxide BUN Creatinine Glucose POC Glucose 135 H 119 H 121 H Lactic Acid Calcium Ionized Calcium Phosphorus Magnesium Total Bilirubin AST ALT Alkaline Phosphatase Ammonia Total Creatine Kinase CK-MB (CK-2) CK-MB (CK-2) Rel Index Total Protein Albumin Urine WBC (Auto) Vancomycin Trough Salicylates Acetaminophen Plasma/Serum Alcohol Crossmatch 02/16/20 02/16/20 02/16/20 12:12 18:22 23:51 WBC RBC Hgb Hct MCH RDW Plt Count Lymph % (Auto) [place] % (Auto) [place] # Baso # Seg Neutrophils % Seg Neuts % (Manual) Lymphocytes % (Manual) Monocytes % (Manual) Seg Neutrophils # Seg Neutrophils # Man Lymphocytes # (Manual) Monocytes # (Manual) Eosinophils # (Manual) Basophils # (Manual) PT INR APTT ABG pH ABG pO2 ABG HCO3 ABG O2 Saturation ABG Base Excess ABG Hemoglobin Oxyhemoglobin Sodium Potassium Chloride Carbon Dioxide BUN Creatinine Glucose POC Glucose 107 H 106 H 128 H Lactic Acid Calcium Ionized Calcium Phosphorus Magnesium Total Bilirubin AST ALT Alkaline Phosphatase Ammonia Total Creatine Kinase CK-MB (CK-2) CK-MB (CK-2) Rel Index Total Protein Albumin Urine WBC (Auto) Vancomycin Trough Salicylates Acetaminophen Plasma/Serum Alcohol Crossmatch 02/17/20 02/17/20 02/17/20 05:50 07:57 07:57 WBC 12.6 H RBC 3.52 L Hgb Hct MCH RDW 15.3 H Plt Count 643 H Lymph % (Auto) [place] % (Auto) 8.0 H [place] # 1.0 H Baso # Seg Neutrophils % Seg Neuts % (Manual) Lymphocytes % (Manual) Monocytes % (Manual) Seg Neutrophils # 8.5 H Seg Neutrophils # Man Lymphocytes # (Manual) Monocytes # (Manual) Eosinophils # (Manual) Basophils # (Manual) PT INR APTT ABG pH ABG pO2 ABG HCO3 ABG O2 Saturation ABG Base Excess ABG Hemoglobin Oxyhemoglobin Sodium Potassium Chloride 96.9 L Carbon Dioxide BUN 21 H Creatinine 0.4 L Glucose 113 H POC Glucose 116 H Lactic Acid Calcium 10.5 H Ionized Calcium Phosphorus Magnesium Total Bilirubin AST ALT Alkaline Phosphatase Ammonia Total Creatine Kinase CK-MB (CK-2) CK-MB (CK-2) Rel Index Total Protein Albumin Urine WBC (Auto) Vancomycin Trough Salicylates Acetaminophen Plasma/Serum Alcohol Crossmatch 02/17/20 02/17/20 02/18/20 12:05 18:16 00:13 WBC RBC Hgb Hct MCH RDW Plt Count Lymph % (Auto) [place] % (Auto) [place] # Baso # Seg Neutrophils % Seg Neuts % (Manual) Lymphocytes % (Manual) Monocytes % (Manual) Seg Neutrophils # Seg Neutrophils # Man Lymphocytes # (Manual) Monocytes # (Manual) Eosinophils # (Manual) Basophils # (Manual) PT INR APTT ABG pH ABG pO2 ABG HCO3 ABG O2 Saturation ABG Base Excess ABG Hemoglobin Oxyhemoglobin Sodium Potassium Chloride Carbon Dioxide BUN Creatinine Glucose POC Glucose 139 H 127 H 144 H Lactic Acid Calcium Ionized Calcium Phosphorus Magnesium Total Bilirubin AST ALT Alkaline Phosphatase Ammonia Total Creatine Kinase CK-MB (CK-2) CK-MB (CK-2) Rel Index Total Protein Albumin Urine WBC (Auto) Vancomycin Trough Salicylates Acetaminophen Plasma/Serum Alcohol Crossmatch 02/18/20 02/18/20 02/19/20 17:41 23:28 05:17 WBC RBC Hgb Hct MCH RDW Plt Count Lymph % (Auto) [place] % (Auto) [place] # Baso # Seg Neutrophils % Seg Neuts % (Manual) Lymphocytes % (Manual) Monocytes % (Manual) Seg Neutrophils # Seg Neutrophils # Man Lymphocytes # (Manual) Monocytes # (Manual) Eosinophils # (Manual) Basophils # (Manual) PT INR APTT ABG pH ABG pO2 ABG HCO3 ABG O2 Saturation ABG Base Excess ABG Hemoglobin Oxyhemoglobin Sodium Potassium Chloride Carbon Dioxide BUN Creatinine Glucose POC Glucose 118 H 166 H 116 H Lactic Acid Calcium Ionized Calcium Phosphorus Magnesium Total Bilirubin AST ALT Alkaline Phosphatase Ammonia Total Creatine Kinase CK-MB (CK-2) CK-MB (CK-2) Rel Index Total Protein Albumin Urine WBC (Auto) Vancomycin Trough Salicylates Acetaminophen Plasma/Serum Alcohol Crossmatch 02/19/20 02/19/20 02/20/20 12:33 17:02 00:12 WBC RBC Hgb Hct MCH RDW Plt Count Lymph % (Auto) [place] % (Auto) [place] # Baso # Seg Neutrophils % Seg Neuts % (Manual) Lymphocytes % (Manual) Monocytes % (Manual) Seg Neutrophils # Seg Neutrophils # Man Lymphocytes # (Manual) Monocytes # (Manual) Eosinophils # (Manual) Basophils # (Manual) PT INR APTT ABG pH ABG pO2 ABG HCO3 ABG O2 Saturation ABG Base Excess ABG Hemoglobin Oxyhemoglobin Sodium Potassium Chloride Carbon Dioxide BUN Creatinine Glucose POC Glucose 115 H 108 H 153 H Lactic Acid Calcium Ionized Calcium Phosphorus Magnesium Total Bilirubin AST ALT Alkaline Phosphatase Ammonia Total Creatine Kinase CK-MB (CK-2) CK-MB (CK-2) Rel Index Total Protein Albumin Urine WBC (Auto) Vancomycin Trough Salicylates Acetaminophen Plasma/Serum Alcohol Crossmatch 02/20/20 02/20/20 02/21/20 12:00 23:13 05:07 WBC RBC Hgb Hct MCH RDW Plt Count Lymph % (Auto) [place] % (Auto) [place] # Baso # Seg Neutrophils % Seg Neuts % (Manual) Lymphocytes % (Manual) Monocytes % (Manual) Seg Neutrophils # Seg Neutrophils # Man Lymphocytes # (Manual) Monocytes # (Manual) Eosinophils # (Manual) Basophils # (Manual) PT INR APTT ABG pH ABG pO2 ABG HCO3 ABG O2 Saturation ABG Base Excess ABG Hemoglobin Oxyhemoglobin Sodium Potassium Chloride Carbon Dioxide BUN Creatinine Glucose POC Glucose 171 H 129 H 116 H Lactic Acid Calcium Ionized Calcium Phosphorus Magnesium Total Bilirubin AST ALT Alkaline Phosphatase Ammonia Total Creatine Kinase CK-MB (CK-2) CK-MB (CK-2) Rel Index Total Protein Albumin Urine WBC (Auto) Vancomycin Trough Salicylates Acetaminophen Plasma/Serum Alcohol Crossmatch 02/21/20 02/22/20 02/22/20 12:15 00:42 06:30 WBC RBC Hgb Hct MCH RDW Plt Count Lymph % (Auto) [place] % (Auto) [place] # Baso # Seg Neutrophils % Seg Neuts % (Manual) Lymphocytes % (Manual) Monocytes % (Manual) Seg Neutrophils # Seg Neutrophils # Man Lymphocytes # (Manual) Monocytes # (Manual) Eosinophils # (Manual) Basophils # (Manual) PT INR APTT ABG pH ABG pO2 ABG HCO3 ABG O2 Saturation ABG Base Excess ABG Hemoglobin Oxyhemoglobin Sodium Potassium Chloride Carbon Dioxide BUN Creatinine Glucose POC Glucose 124 H 142 H 117 H Lactic Acid Calcium Ionized Calcium Phosphorus Magnesium Total Bilirubin AST ALT Alkaline Phosphatase Ammonia Total Creatine Kinase CK-MB (CK-2) CK-MB (CK-2) Rel Index Total Protein Albumin Urine WBC (Auto) Vancomycin Trough Salicylates Acetaminophen Plasma/Serum Alcohol Crossmatch 02/22/20 02/22/20 02/23/20 12:20 17:55 12:46 WBC RBC Hgb Hct MCH RDW Plt Count Lymph % (Auto) [place] % (Auto) [place] # Baso # Seg Neutrophils % Seg Neuts % (Manual) Lymphocytes % (Manual) Monocytes % (Manual) Seg Neutrophils # Seg Neutrophils # Man Lymphocytes # (Manual) Monocytes # (Manual) Eosinophils # (Manual) Basophils # (Manual) PT INR APTT ABG pH ABG pO2 ABG HCO3 ABG O2 Saturation ABG Base Excess ABG Hemoglobin Oxyhemoglobin Sodium Potassium Chloride Carbon Dioxide BUN Creatinine Glucose POC Glucose 121 H 157 H 112 H Lactic Acid Calcium Ionized Calcium Phosphorus Magnesium Total Bilirubin AST ALT Alkaline Phosphatase Ammonia Total Creatine Kinase CK-MB (CK-2) CK-MB (CK-2) Rel Index Total Protein Albumin Urine WBC (Auto) Vancomycin Trough Salicylates Acetaminophen Plasma/Serum Alcohol Crossmatch 02/23/20 02/24/20 02/24/20 16:47 00:38 07:00 WBC RBC Hgb Hct MCH RDW Plt Count Lymph % (Auto) [place] % (Auto) [place] # Baso # Seg Neutrophils % Seg Neuts % (Manual) Lymphocytes % (Manual) Monocytes % (Manual) Seg Neutrophils # Seg Neutrophils # Man Lymphocytes # (Manual) Monocytes # (Manual) Eosinophils # (Manual) Basophils # (Manual) PT INR APTT ABG pH ABG pO2 ABG HCO3 ABG O2 Saturation ABG Base Excess ABG Hemoglobin Oxyhemoglobin Sodium Potassium Chloride Carbon Dioxide BUN Creatinine Glucose POC Glucose 142 H 138 H 118 H Lactic Acid Calcium Ionized Calcium Phosphorus Magnesium Total Bilirubin AST ALT Alkaline Phosphatase Ammonia Total Creatine Kinase CK-MB (CK-2) CK-MB (CK-2) Rel Index Total Protein Albumin Urine WBC (Auto) Vancomycin Trough Salicylates Acetaminophen Plasma/Serum Alcohol Crossmatch 02/24/20 02/24/20 02/25/20 11:41 18:33 18:24 WBC RBC Hgb Hct MCH RDW Plt Count Lymph % (Auto) [place] % (Auto) [place] # Baso # Seg Neutrophils % Seg Neuts % (Manual) Lymphocytes % (Manual) Monocytes % (Manual) Seg Neutrophils # Seg Neutrophils # Man Lymphocytes # (Manual) Monocytes # (Manual) Eosinophils # (Manual) Basophils # (Manual) PT INR APTT ABG pH ABG pO2 ABG HCO3 ABG O2 Saturation ABG Base Excess ABG Hemoglobin Oxyhemoglobin Sodium Potassium Chloride Carbon Dioxide BUN Creatinine Glucose POC Glucose 152 H 126 H 120 H Lactic Acid Calcium Ionized Calcium Phosphorus Magnesium Total Bilirubin AST ALT Alkaline Phosphatase Ammonia Total Creatine Kinase CK-MB (CK-2) CK-MB (CK-2) Rel Index Total Protein Albumin Urine WBC (Auto) Vancomycin Trough Salicylates Acetaminophen Plasma/Serum Alcohol Crossmatch 02/25/20 02/26/20 02/26/20 23:40 05:46 11:32 WBC RBC Hgb Hct MCH RDW Plt Count Lymph % (Auto) [place] % (Auto) [place] # Baso # Seg Neutrophils % Seg Neuts % (Manual) Lymphocytes % (Manual) Monocytes % (Manual) Seg Neutrophils # Seg Neutrophils # Man Lymphocytes # (Manual) Monocytes # (Manual) Eosinophils # (Manual) Basophils # (Manual) PT INR APTT ABG pH ABG pO2 ABG HCO3 ABG O2 Saturation ABG Base Excess ABG Hemoglobin Oxyhemoglobin Sodium Potassium Chloride Carbon Dioxide BUN Creatinine Glucose POC Glucose 114 H 113 H 106 H Lactic Acid Calcium Ionized Calcium Phosphorus Magnesium Total Bilirubin AST ALT Alkaline Phosphatase Ammonia Total Creatine Kinase CK-MB (CK-2) CK-MB (CK-2) Rel Index Total Protein Albumin Urine WBC (Auto) Vancomycin Trough Salicylates Acetaminophen Plasma/Serum Alcohol Crossmatch 02/26/20 02/27/20 02/27/20 16:14 11:53 17:54 WBC RBC Hgb Hct MCH RDW Plt Count Lymph % (Auto) [place] % (Auto) [place] # Baso # Seg Neutrophils % Seg Neuts % (Manual) Lymphocytes % (Manual) Monocytes % (Manual) Seg Neutrophils # Seg Neutrophils # Man Lymphocytes # (Manual) Monocytes # (Manual) Eosinophils # (Manual) Basophils # (Manual) PT INR APTT ABG pH ABG pO2 ABG HCO3 ABG O2 Saturation ABG Base Excess ABG Hemoglobin Oxyhemoglobin Sodium Potassium Chloride Carbon Dioxide BUN Creatinine Glucose POC Glucose 123 H 134 H 119 H Lactic Acid Calcium Ionized Calcium Phosphorus Magnesium Total Bilirubin AST ALT Alkaline Phosphatase Ammonia Total Creatine Kinase CK-MB (CK-2) CK-MB (CK-2) Rel Index Total Protein Albumin Urine WBC (Auto) Vancomycin Trough Salicylates Acetaminophen Plasma/Serum Alcohol Crossmatch 02/27/20 02/28/20 02/28/20 23:51 03:40 03:40 WBC RBC 3.58 L Hgb Hct MCH RDW Plt Count 575 H Lymph % (Auto) [place] % (Auto) 9.4 H [place] # 1.0 H Baso # Seg Neutrophils % Seg Neuts % (Manual) Lymphocytes % (Manual) Monocytes % (Manual) Seg Neutrophils # Seg Neutrophils # Man Lymphocytes # (Manual) Monocytes # (Manual) Eosinophils # (Manual) Basophils # (Manual) PT INR APTT ABG pH ABG pO2 ABG HCO3 ABG O2 Saturation ABG Base Excess ABG Hemoglobin Oxyhemoglobin Sodium Potassium Chloride Carbon Dioxide BUN 23 H Creatinine 0.5 L Glucose 114 H POC Glucose 138 H Lactic Acid Calcium Ionized Calcium Phosphorus Magnesium Total Bilirubin AST ALT Alkaline Phosphatase Ammonia Total Creatine Kinase CK-MB (CK-2) CK-MB (CK-2) Rel Index Total Protein Albumin Urine WBC (Auto) Vancomycin Trough Salicylates Acetaminophen Plasma/Serum Alcohol Crossmatch 02/28/20 02/28/20 02/29/20 12:37 18:38 05:50 WBC RBC Hgb Hct MCH RDW Plt Count Lymph % (Auto) [place] % (Auto) [place] # Baso # Seg Neutrophils % Seg Neuts % (Manual) Lymphocytes % (Manual) Monocytes % (Manual) Seg Neutrophils # Seg Neutrophils # Man Lymphocytes # (Manual) Monocytes # (Manual) Eosinophils # (Manual) Basophils # (Manual) PT INR APTT ABG pH ABG pO2 ABG HCO3 ABG O2 Saturation ABG Base Excess ABG Hemoglobin Oxyhemoglobin Sodium Potassium Chloride Carbon Dioxide BUN Creatinine Glucose POC Glucose 115 H 120 H 114 H Lactic Acid Calcium Ionized Calcium Phosphorus Magnesium Total Bilirubin AST ALT Alkaline Phosphatase Ammonia Total Creatine Kinase CK-MB (CK-2) CK-MB (CK-2) Rel Index Total Protein Albumin Urine WBC (Auto) Vancomycin Trough Salicylates Acetaminophen Plasma/Serum Alcohol Crossmatch 02/29/20 02/29/20 03/01/20 18:53 23:10 06:53 WBC RBC Hgb Hct MCH RDW Plt Count Lymph % (Auto) [place] % (Auto) [place] # Baso # Seg Neutrophils % Seg Neuts % (Manual) Lymphocytes % (Manual) Monocytes % (Manual) Seg Neutrophils # Seg Neutrophils # Man Lymphocytes # (Manual) Monocytes # (Manual) Eosinophils # (Manual) Basophils # (Manual) PT INR APTT ABG pH ABG pO2 ABG HCO3 ABG O2 Saturation ABG Base Excess ABG Hemoglobin Oxyhemoglobin Sodium Potassium Chloride Carbon Dioxide BUN Creatinine Glucose POC Glucose 112 H 147 H 131 H Lactic Acid Calcium Ionized Calcium Phosphorus Magnesium Total Bilirubin AST ALT Alkaline Phosphatase Ammonia Total Creatine Kinase CK-MB (CK-2) CK-MB (CK-2) Rel Index Total Protein Albumin Urine WBC (Auto) Vancomycin Trough Salicylates Acetaminophen Plasma/Serum Alcohol Crossmatch 03/01/20 03/01/20 03/02/20 17:31 18:35 00:10 WBC RBC Hgb Hct MCH RDW Plt Count Lymph % (Auto) [place] % (Auto) [place] # Baso # Seg Neutrophils % Seg Neuts % (Manual) Lymphocytes % (Manual) Monocytes % (Manual) Seg Neutrophils # Seg Neutrophils # Man Lymphocytes # (Manual) Monocytes # (Manual) Eosinophils # (Manual) Basophils # (Manual) PT INR APTT ABG pH ABG pO2 ABG HCO3 ABG O2 Saturation ABG Base Excess ABG Hemoglobin Oxyhemoglobin Sodium Potassium Chloride Carbon Dioxide BUN Creatinine Glucose POC Glucose 61 L 129 H 117 H Lactic Acid Calcium Ionized Calcium Phosphorus Magnesium Total Bilirubin AST ALT Alkaline Phosphatase Ammonia Total Creatine Kinase CK-MB (CK-2) CK-MB (CK-2) Rel Index Total Protein Albumin Urine WBC (Auto) Vancomycin Trough Salicylates Acetaminophen Plasma/Serum Alcohol Crossmatch 03/02/20 03/02/20 03/02/20 06:56 12:02 18:42 WBC RBC Hgb Hct MCH RDW Plt Count Lymph % (Auto) [place] % (Auto) [place] # Baso # Seg Neutrophils % Seg Neuts % (Manual) Lymphocytes % (Manual) Monocytes % (Manual) Seg Neutrophils # Seg Neutrophils # Man Lymphocytes # (Manual) Monocytes # (Manual) Eosinophils # (Manual) Basophils # (Manual) PT INR APTT ABG pH ABG pO2 ABG HCO3 ABG O2 Saturation ABG Base Excess ABG Hemoglobin Oxyhemoglobin Sodium Potassium Chloride Carbon Dioxide BUN Creatinine Glucose POC Glucose 125 H 111 H 126 H Lactic Acid Calcium Ionized Calcium Phosphorus Magnesium Total Bilirubin AST ALT Alkaline Phosphatase Ammonia Total Creatine Kinase CK-MB (CK-2) CK-MB (CK-2) Rel Index Total Protein Albumin Urine WBC (Auto) Vancomycin Trough Salicylates Acetaminophen Plasma/Serum Alcohol Crossmatch 03/03/20 03/03/20 03/03/20 00:18 06:11 11:50 WBC RBC Hgb Hct MCH RDW Plt Count Lymph % (Auto) [place] % (Auto) [place] # Baso # Seg Neutrophils % Seg Neuts % (Manual) Lymphocytes % (Manual) Monocytes % (Manual) Seg Neutrophils # Seg Neutrophils # Man Lymphocytes # (Manual) Monocytes # (Manual) Eosinophils # (Manual) Basophils # (Manual) PT INR APTT ABG pH ABG pO2 ABG HCO3 ABG O2 Saturation ABG Base Excess ABG Hemoglobin Oxyhemoglobin Sodium Potassium Chloride Carbon Dioxide BUN Creatinine Glucose POC Glucose 139 H 155 H 118 H Lactic Acid Calcium Ionized Calcium Phosphorus Magnesium Total Bilirubin AST ALT Alkaline Phosphatase Ammonia Total Creatine Kinase CK-MB (CK-2) CK-MB (CK-2) Rel Index Total Protein Albumin Urine WBC (Auto) Vancomycin Trough Salicylates Acetaminophen Plasma/Serum Alcohol Crossmatch 03/03/20 03/03/20 03/04/20 18:09 23:46 05:37 WBC RBC Hgb Hct MCH RDW Plt Count Lymph % (Auto) [place] % (Auto) [place] # Baso # Seg Neutrophils % Seg Neuts % (Manual) Lymphocytes % (Manual) Monocytes % (Manual) Seg Neutrophils # Seg Neutrophils # Man Lymphocytes # (Manual) Monocytes # (Manual) Eosinophils # (Manual) Basophils # (Manual) PT INR APTT ABG pH ABG pO2 ABG HCO3 ABG O2 Saturation ABG Base Excess ABG Hemoglobin Oxyhemoglobin Sodium Potassium Chloride Carbon Dioxide BUN Creatinine Glucose POC Glucose 109 H 132 H 111 H Lactic Acid Calcium Ionized Calcium Phosphorus Magnesium Total Bilirubin AST ALT Alkaline Phosphatase Ammonia Total Creatine Kinase CK-MB (CK-2) CK-MB (CK-2) Rel Index Total Protein Albumin Urine WBC (Auto) Vancomycin Trough Salicylates Acetaminophen Plasma/Serum Alcohol Crossmatch 03/04/20 03/04/20 03/05/20 11:38 17:54 00:14 WBC RBC Hgb Hct MCH RDW Plt Count Lymph % (Auto) [place] % (Auto) [place] # Baso # Seg Neutrophils % Seg Neuts % (Manual) Lymphocytes % (Manual) Monocytes % (Manual) Seg Neutrophils # Seg Neutrophils # Man Lymphocytes # (Manual) Monocytes # (Manual) Eosinophils # (Manual) Basophils # (Manual) PT INR APTT ABG pH ABG pO2 ABG HCO3 ABG O2 Saturation ABG Base Excess ABG Hemoglobin Oxyhemoglobin Sodium Potassium Chloride Carbon Dioxide BUN Creatinine Glucose POC Glucose 138 H 118 H 134 H Lactic Acid Calcium Ionized Calcium Phosphorus Magnesium Total Bilirubin AST ALT Alkaline Phosphatase Ammonia Total Creatine Kinase CK-MB (CK-2) CK-MB (CK-2) Rel Index Total Protein Albumin Urine WBC (Auto) Vancomycin Trough Salicylates Acetaminophen Plasma/Serum Alcohol Crossmatch 03/06/20 03/06/20 03/06/20 03:37 03:37 06:29 WBC RBC Hgb Hct MCH RDW Plt Count 550 H Lymph % (Auto) [place] % (Auto) 9.1 H [place] # Baso # Seg Neutrophils % Seg Neuts % (Manual) Lymphocytes % (Manual) Monocytes % (Manual) Seg Neutrophils # Seg Neutrophils # Man Lymphocytes # (Manual) Monocytes # (Manual) Eosinophils # (Manual) Basophils # (Manual) PT INR APTT ABG pH ABG pO2 ABG HCO3 ABG O2 Saturation ABG Base Excess ABG Hemoglobin Oxyhemoglobin Sodium Potassium Chloride Carbon Dioxide BUN 26 H Creatinine 0.5 L Glucose POC Glucose 128 H Lactic Acid Calcium 10.4 H Ionized Calcium Phosphorus Magnesium Total Bilirubin AST ALT Alkaline Phosphatase Ammonia Total Creatine Kinase CK-MB (CK-2) CK-MB (CK-2) Rel Index Total Protein Albumin Urine WBC (Auto) Vancomycin Trough Salicylates Acetaminophen Plasma/Serum Alcohol Crossmatch 03/06/20 03/07/20 03/07/20 17:47 06:37 12:37 WBC RBC Hgb Hct MCH RDW Plt Count Lymph % (Auto) [place] % (Auto) [place] # Baso # Seg Neutrophils % Seg Neuts % (Manual) Lymphocytes % (Manual) Monocytes % (Manual) Seg Neutrophils # Seg Neutrophils # Man Lymphocytes # (Manual) Monocytes # (Manual) Eosinophils # (Manual) Basophils # (Manual) PT INR APTT ABG pH ABG pO2 ABG HCO3 ABG O2 Saturation ABG Base Excess ABG Hemoglobin Oxyhemoglobin Sodium Potassium Chloride Carbon Dioxide BUN Creatinine Glucose POC Glucose 120 H 113 H 118 H Lactic Acid Calcium Ionized Calcium Phosphorus Magnesium Total Bilirubin AST ALT Alkaline Phosphatase Ammonia Total Creatine Kinase CK-MB (CK-2) CK-MB (CK-2) Rel Index Total Protein Albumin Urine WBC (Auto) Vancomycin Trough Salicylates Acetaminophen Plasma/Serum Alcohol Crossmatch 03/07/20 03/08/20 03/08/20 16:41 00:55 06:25 WBC RBC Hgb Hct MCH RDW Plt Count Lymph % (Auto) [place] % (Auto) [place] # Baso # Seg Neutrophils % Seg Neuts % (Manual) Lymphocytes % (Manual) Monocytes % (Manual) Seg Neutrophils # Seg Neutrophils # Man Lymphocytes # (Manual) Monocytes # (Manual) Eosinophils # (Manual) Basophils # (Manual) PT INR APTT ABG pH ABG pO2 ABG HCO3 ABG O2 Saturation ABG Base Excess ABG Hemoglobin Oxyhemoglobin Sodium Potassium Chloride Carbon Dioxide BUN Creatinine Glucose POC Glucose 108 H 139 H 127 H Lactic Acid Calcium Ionized Calcium Phosphorus Magnesium Total Bilirubin AST ALT Alkaline Phosphatase Ammonia Total Creatine Kinase CK-MB (CK-2) CK-MB (CK-2) Rel Index Total Protein Albumin Urine WBC (Auto) Vancomycin Trough Salicylates Acetaminophen Plasma/Serum Alcohol Crossmatch 03/08/20 03/08/20 03/08/20 12:49 13:25 17:13 WBC RBC Hgb Hct MCH RDW Plt Count Lymph % (Auto) [place] % (Auto) [place] # Baso # Seg Neutrophils % Seg Neuts % (Manual) Lymphocytes % (Manual) Monocytes % (Manual) Seg Neutrophils # Seg Neutrophils # Man Lymphocytes # (Manual) Monocytes # (Manual) Eosinophils # (Manual) Basophils # (Manual) PT INR APTT ABG pH ABG pO2 71.1 L ABG HCO3 26.2 H ABG O2 Saturation ABG Base Excess ABG Hemoglobin 8.2 L Oxyhemoglobin 94.8 L Sodium Potassium Chloride Carbon Dioxide BUN Creatinine Glucose POC Glucose 127 H 147 H Lactic Acid Calcium Ionized Calcium Phosphorus Magnesium Total Bilirubin AST ALT Alkaline Phosphatase Ammonia Total Creatine Kinase CK-MB (CK-2) CK-MB (CK-2) Rel Index Total Protein Albumin Urine WBC (Auto) Vancomycin Trough Salicylates Acetaminophen Plasma/Serum Alcohol Crossmatch 03/09/20 03/09/20 03/09/20 06:28 08:36 23:58 WBC RBC Hgb Hct MCH RDW Plt Count Lymph % (Auto) [place] % (Auto) [place] # Baso # Seg Neutrophils % Seg Neuts % (Manual) Lymphocytes % (Manual) Monocytes % (Manual) Seg Neutrophils # Seg Neutrophils # Man Lymphocytes # (Manual) Monocytes # (Manual) Eosinophils # (Manual) Basophils # (Manual) PT INR APTT ABG pH ABG pO2 ABG HCO3 ABG O2 Saturation ABG Base Excess ABG Hemoglobin Oxyhemoglobin Sodium Potassium Chloride Carbon Dioxide BUN Creatinine Glucose POC Glucose 139 H 167 H 122 H Lactic Acid Calcium Ionized Calcium Phosphorus Magnesium Total Bilirubin AST ALT Alkaline Phosphatase Ammonia Total Creatine Kinase CK-MB (CK-2) CK-MB (CK-2) Rel Index Total Protein Albumin Urine WBC (Auto) Vancomycin Trough Salicylates Acetaminophen Plasma/Serum Alcohol Crossmatch 03/10/20 03/10/20 03/11/20 06:32 23:27 06:23 WBC RBC Hgb Hct MCH RDW Plt Count Lymph % (Auto) [place] % (Auto) [place] # Baso # Seg Neutrophils % Seg Neuts % (Manual) Lymphocytes % (Manual) Monocytes % (Manual) Seg Neutrophils # Seg Neutrophils # Man Lymphocytes # (Manual) Monocytes # (Manual) Eosinophils # (Manual) Basophils # (Manual) PT INR APTT ABG pH ABG pO2 ABG HCO3 ABG O2 Saturation ABG Base Excess ABG Hemoglobin Oxyhemoglobin Sodium Potassium Chloride Carbon Dioxide BUN Creatinine Glucose POC Glucose 165 H 115 H 139 H Lactic Acid Calcium Ionized Calcium Phosphorus Magnesium Total Bilirubin AST ALT Alkaline Phosphatase Ammonia Total Creatine Kinase CK-MB (CK-2) CK-MB (CK-2) Rel Index Total Protein Albumin Urine WBC (Auto) Vancomycin Trough Salicylates Acetaminophen Plasma/Serum Alcohol Crossmatch 03/11/20 03/11/20 03/12/20 12:29 18:02 04:53 WBC RBC Hgb Hct MCH RDW Plt Count 625 H Lymph % (Auto) [place] % (Auto) [place] # Baso # Seg Neutrophils % Seg Neuts % (Manual) Lymphocytes % (Manual) Monocytes % (Manual) Seg Neutrophils # Seg Neutrophils # Man Lymphocytes # (Manual) Monocytes # (Manual) Eosinophils # (Manual) Basophils # (Manual) PT INR APTT ABG pH ABG pO2 ABG HCO3 ABG O2 Saturation ABG Base Excess ABG Hemoglobin Oxyhemoglobin Sodium Potassium Chloride Carbon Dioxide BUN Creatinine Glucose POC Glucose 164 H 113 H Lactic Acid Calcium Ionized Calcium Phosphorus Magnesium Total Bilirubin AST ALT Alkaline Phosphatase Ammonia Total Creatine Kinase CK-MB (CK-2) CK-MB (CK-2) Rel Index Total Protein Albumin Urine WBC (Auto) Vancomycin Trough Salicylates Acetaminophen Plasma/Serum Alcohol Crossmatch 03/12/20 03/12/20 03/12/20 04:53 06:26 12:38 WBC RBC Hgb Hct MCH RDW Plt Count Lymph % (Auto) [place] % (Auto) [place] # Baso # Seg Neutrophils % Seg Neuts % (Manual) Lymphocytes % (Manual) Monocytes % (Manual) Seg Neutrophils # Seg Neutrophils # Man Lymphocytes # (Manual) Monocytes # (Manual) Eosinophils # (Manual) Basophils # (Manual) PT INR APTT ABG pH ABG pO2 ABG HCO3 ABG O2 Saturation ABG Base Excess ABG Hemoglobin Oxyhemoglobin Sodium Potassium 5.3 H Chloride Carbon Dioxide BUN 34 H Creatinine Glucose 159 H POC Glucose 149 H 130 H Lactic Acid Calcium 10.7 H Ionized Calcium Phosphorus Magnesium Total Bilirubin AST ALT Alkaline Phosphatase Ammonia Total Creatine Kinase CK-MB (CK-2) CK-MB (CK-2) Rel Index Total Protein Albumin Urine WBC (Auto) Vancomycin Trough Salicylates Acetaminophen Plasma/Serum Alcohol Crossmatch 03/13/20 03/13/20 03/13/20 03:50 06:12 18:11 WBC RBC Hgb Hct MCH RDW Plt Count Lymph % (Auto) [place] % (Auto) [place] # Baso # Seg Neutrophils % Seg Neuts % (Manual) Lymphocytes % (Manual) Monocytes % (Manual) Seg Neutrophils # Seg Neutrophils # Man Lymphocytes # (Manual) Monocytes # (Manual) Eosinophils # (Manual) Basophils # (Manual) PT INR APTT ABG pH ABG pO2 ABG HCO3 ABG O2 Saturation ABG Base Excess ABG Hemoglobin Oxyhemoglobin Sodium Potassium Chloride Carbon Dioxide 20 L BUN 30 H Creatinine 0.6 L Glucose 153 H POC Glucose 124 H 111 H Lactic Acid Calcium Ionized Calcium Phosphorus Magnesium Total Bilirubin AST ALT Alkaline Phosphatase Ammonia Total Creatine Kinase CK-MB (CK-2) CK-MB (CK-2) Rel Index Total Protein Albumin Urine WBC (Auto) Vancomycin Trough Salicylates Acetaminophen Plasma/Serum Alcohol Crossmatch 03/14/20 03/14/20 03/15/20 12:01 15:40 00:02 WBC RBC Hgb Hct MCH RDW Plt Count Lymph % (Auto) [place] % (Auto) [place] # Baso # Seg Neutrophils % Seg Neuts % (Manual) Lymphocytes % (Manual) Monocytes % (Manual) Seg Neutrophils # Seg Neutrophils # Man Lymphocytes # (Manual) Monocytes # (Manual) Eosinophils # (Manual) Basophils # (Manual) PT INR APTT ABG pH ABG pO2 ABG HCO3 ABG O2 Saturation ABG Base Excess ABG Hemoglobin Oxyhemoglobin Sodium Potassium Chloride Carbon Dioxide BUN Creatinine Glucose POC Glucose 116 H 125 H 143 H Lactic Acid Calcium Ionized Calcium Phosphorus Magnesium Total Bilirubin AST ALT Alkaline Phosphatase Ammonia Total Creatine Kinase CK-MB (CK-2) CK-MB (CK-2) Rel Index Total Protein Albumin Urine WBC (Auto) Vancomycin Trough Salicylates Acetaminophen Plasma/Serum Alcohol Crossmatch 03/15/20 03/15/20 03/16/20 12:03 18:14 12:14 WBC RBC Hgb Hct MCH RDW Plt Count Lymph % (Auto) [place] % (Auto) [place] # Baso # Seg Neutrophils % Seg Neuts % (Manual) Lymphocytes % (Manual) Monocytes % (Manual) Seg Neutrophils # Seg Neutrophils # Man Lymphocytes # (Manual) Monocytes # (Manual) Eosinophils # (Manual) Basophils # (Manual) PT INR APTT ABG pH ABG pO2 ABG HCO3 ABG O2 Saturation ABG Base Excess ABG Hemoglobin Oxyhemoglobin Sodium Potassium Chloride Carbon Dioxide BUN Creatinine Glucose POC Glucose 106 H 107 H 107 H Lactic Acid Calcium Ionized Calcium Phosphorus Magnesium Total Bilirubin AST ALT Alkaline Phosphatase Ammonia Total Creatine Kinase CK-MB (CK-2) CK-MB (CK-2) Rel Index Total Protein Albumin Urine WBC (Auto) Vancomycin Trough Salicylates Acetaminophen Plasma/Serum Alcohol Crossmatch 03/16/20 03/17/20 03/17/20 18:30 05:44 12:09 WBC RBC Hgb Hct MCH RDW Plt Count Lymph % (Auto) [place] % (Auto) [place] # Baso # Seg Neutrophils % Seg Neuts % (Manual) Lymphocytes % (Manual) Monocytes % (Manual) Seg Neutrophils # Seg Neutrophils # Man Lymphocytes # (Manual) Monocytes # (Manual) Eosinophils # (Manual) Basophils # (Manual) PT INR APTT ABG pH ABG pO2 ABG HCO3 ABG O2 Saturation ABG Base Excess ABG Hemoglobin Oxyhemoglobin Sodium Potassium Chloride Carbon Dioxide BUN Creatinine Glucose POC Glucose 128 H 114 H 120 H Lactic Acid Calcium Ionized Calcium Phosphorus Magnesium Total Bilirubin AST ALT Alkaline Phosphatase Ammonia Total Creatine Kinase CK-MB (CK-2) CK-MB (CK-2) Rel Index Total Protein Albumin Urine WBC (Auto) Vancomycin Trough Salicylates Acetaminophen Plasma/Serum Alcohol Crossmatch 03/17/20 03/17/20 03/18/20 16:51 23:36 07:07 WBC RBC Hgb Hct MCH RDW Plt Count Lymph % (Auto) [place] % (Auto) [place] # Baso # Seg Neutrophils % Seg Neuts % (Manual) Lymphocytes % (Manual) Monocytes % (Manual) Seg Neutrophils # Seg Neutrophils # Man Lymphocytes # (Manual) Monocytes # (Manual) Eosinophils # (Manual) Basophils # (Manual) PT INR APTT ABG pH ABG pO2 ABG HCO3 ABG O2 Saturation ABG Base Excess ABG Hemoglobin Oxyhemoglobin Sodium Potassium Chloride Carbon Dioxide BUN Creatinine Glucose POC Glucose 108 H 145 H 116 H Lactic Acid Calcium Ionized Calcium Phosphorus Magnesium Total Bilirubin AST ALT Alkaline Phosphatase Ammonia Total Creatine Kinase CK-MB (CK-2) CK-MB (CK-2) Rel Index Total Protein Albumin Urine WBC (Auto) Vancomycin Trough Salicylates Acetaminophen Plasma/Serum Alcohol Crossmatch 03/18/20 03/19/20 03/19/20 18:11 06:09 11:49 WBC RBC Hgb Hct MCH RDW Plt Count Lymph % (Auto) [place] % (Auto) [place] # Baso # Seg Neutrophils % Seg Neuts % (Manual) Lymphocytes % (Manual) Monocytes % (Manual) Seg Neutrophils # Seg Neutrophils # Man Lymphocytes # (Manual) Monocytes # (Manual) Eosinophils # (Manual) Basophils # (Manual) PT INR APTT ABG pH ABG pO2 ABG HCO3 ABG O2 Saturation ABG Base Excess ABG Hemoglobin Oxyhemoglobin Sodium Potassium Chloride Carbon Dioxide BUN Creatinine Glucose POC Glucose 106 H 160 H 145 H Lactic Acid Calcium Ionized Calcium Phosphorus Magnesium Total Bilirubin AST ALT Alkaline Phosphatase Ammonia Total Creatine Kinase CK-MB (CK-2) CK-MB (CK-2) Rel Index Total Protein Albumin Urine WBC (Auto) Vancomycin Trough Salicylates Acetaminophen Plasma/Serum Alcohol Crossmatch 03/20/20 03/20/20 03/20/20 01:01 06:14 12:52 WBC RBC Hgb Hct MCH RDW Plt Count Lymph % (Auto) [place] % (Auto) [place] # Baso # Seg Neutrophils % Seg Neuts % (Manual) Lymphocytes % (Manual) Monocytes % (Manual) Seg Neutrophils # Seg Neutrophils # Man Lymphocytes # (Manual) Monocytes # (Manual) Eosinophils # (Manual) Basophils # (Manual) PT INR APTT ABG pH ABG pO2 ABG HCO3 ABG O2 Saturation ABG Base Excess ABG Hemoglobin Oxyhemoglobin Sodium Potassium Chloride Carbon Dioxide BUN Creatinine Glucose POC Glucose 109 H 122 H 106 H Lactic Acid Calcium Ionized Calcium Phosphorus Magnesium Total Bilirubin AST ALT Alkaline Phosphatase Ammonia Total Creatine Kinase CK-MB (CK-2) CK-MB (CK-2) Rel Index Total Protein Albumin Urine WBC (Auto) Vancomycin Trough Salicylates Acetaminophen Plasma/Serum Alcohol Crossmatch 03/20/20 03/21/20 03/21/20 18:56 00:18 05:21 WBC RBC Hgb Hct MCH RDW Plt Count Lymph % (Auto) [place] % (Auto) [place] # Baso # Seg Neutrophils % Seg Neuts % (Manual) Lymphocytes % (Manual) Monocytes % (Manual) Seg Neutrophils # Seg Neutrophils # Man Lymphocytes # (Manual) Monocytes # (Manual) Eosinophils # (Manual) Basophils # (Manual) PT INR APTT ABG pH ABG pO2 ABG HCO3 ABG O2 Saturation ABG Base Excess ABG Hemoglobin Oxyhemoglobin Sodium Potassium Chloride Carbon Dioxide BUN Creatinine Glucose POC Glucose 110 H 140 H 112 H Lactic Acid Calcium Ionized Calcium Phosphorus Magnesium Total Bilirubin AST ALT Alkaline Phosphatase Ammonia Total Creatine Kinase CK-MB (CK-2) CK-MB (CK-2) Rel Index Total Protein Albumin Urine WBC (Auto) Vancomycin Trough Salicylates Acetaminophen Plasma/Serum Alcohol Crossmatch 03/21/20 03/22/20 03/22/20 17:15 01:14 12:08 WBC RBC Hgb Hct MCH RDW Plt Count Lymph % (Auto) [place] % (Auto) [place] # Baso # Seg Neutrophils % Seg Neuts % (Manual) Lymphocytes % (Manual) Monocytes % (Manual) Seg Neutrophils # Seg Neutrophils # Man Lymphocytes # (Manual) Monocytes # (Manual) Eosinophils # (Manual) Basophils # (Manual) PT INR APTT ABG pH ABG pO2 ABG HCO3 ABG O2 Saturation ABG Base Excess ABG Hemoglobin Oxyhemoglobin Sodium Potassium Chloride Carbon Dioxide BUN Creatinine Glucose POC Glucose 158 H 157 H 133 H Lactic Acid Calcium Ionized Calcium Phosphorus Magnesium Total Bilirubin AST ALT Alkaline Phosphatase Ammonia Total Creatine Kinase CK-MB (CK-2) CK-MB (CK-2) Rel Index Total Protein Albumin Urine WBC (Auto) Vancomycin Trough Salicylates Acetaminophen Plasma/Serum Alcohol Crossmatch 03/22/20 03/23/20 03/23/20 16:48 01:00 06:54 WBC RBC Hgb Hct MCH RDW Plt Count Lymph % (Auto) [place] % (Auto) [place] # Baso # Seg Neutrophils % Seg Neuts % (Manual) Lymphocytes % (Manual) Monocytes % (Manual) Seg Neutrophils # Seg Neutrophils # Man Lymphocytes # (Manual) Monocytes # (Manual) Eosinophils # (Manual) Basophils # (Manual) PT INR APTT ABG pH ABG pO2 ABG HCO3 ABG O2 Saturation ABG Base Excess ABG Hemoglobin Oxyhemoglobin Sodium Potassium Chloride Carbon Dioxide BUN Creatinine Glucose POC Glucose 111 H 153 H 129 H Lactic Acid Calcium Ionized Calcium Phosphorus Magnesium Total Bilirubin AST ALT Alkaline Phosphatase Ammonia Total Creatine Kinase CK-MB (CK-2) CK-MB (CK-2) Rel Index Total Protein Albumin Urine WBC (Auto) Vancomycin Trough Salicylates Acetaminophen Plasma/Serum Alcohol Crossmatch 03/23/20 03/23/20 03/23/20 12:08 15:54 23:20 WBC RBC Hgb Hct MCH RDW Plt Count Lymph % (Auto) [place] % (Auto) [place] # Baso # Seg Neutrophils % Seg Neuts % (Manual) Lymphocytes % (Manual) Monocytes % (Manual) Seg Neutrophils # Seg Neutrophils # Man Lymphocytes # (Manual) Monocytes # (Manual) Eosinophils # (Manual) Basophils # (Manual) PT INR APTT ABG pH ABG pO2 ABG HCO3 ABG O2 Saturation ABG Base Excess ABG Hemoglobin Oxyhemoglobin Sodium Potassium Chloride Carbon Dioxide BUN Creatinine Glucose POC Glucose 126 H 142 H 115 H Lactic Acid Calcium Ionized Calcium Phosphorus Magnesium Total Bilirubin AST ALT Alkaline Phosphatase Ammonia Total Creatine Kinase CK-MB (CK-2) CK-MB (CK-2) Rel Index Total Protein Albumin Urine WBC (Auto) Vancomycin Trough Salicylates Acetaminophen Plasma/Serum Alcohol Crossmatch 03/24/20 03/24/20 03/24/20 06:33 12:19 16:46 WBC RBC Hgb Hct MCH RDW Plt Count Lymph % (Auto) [place] % (Auto) [place] # Baso # Seg Neutrophils % Seg Neuts % (Manual) Lymphocytes % (Manual) Monocytes % (Manual) Seg Neutrophils # Seg Neutrophils # Man Lymphocytes # (Manual) Monocytes # (Manual) Eosinophils # (Manual) Basophils # (Manual) PT INR APTT ABG pH ABG pO2 ABG HCO3 ABG O2 Saturation ABG Base Excess ABG Hemoglobin Oxyhemoglobin Sodium Potassium Chloride Carbon Dioxide BUN Creatinine Glucose POC Glucose 122 H 156 H 140 H Lactic Acid Calcium Ionized Calcium Phosphorus Magnesium Total Bilirubin AST ALT Alkaline Phosphatase Ammonia Total Creatine Kinase CK-MB (CK-2) CK-MB (CK-2) Rel Index Total Protein Albumin Urine WBC (Auto) Vancomycin Trough Salicylates Acetaminophen Plasma/Serum Alcohol Crossmatch 03/24/20 03/25/20 03/25/20 23:56 04:28 06:45 WBC RBC Hgb Hct MCH RDW Plt Count Lymph % (Auto) [place] % (Auto) [place] # Baso # Seg Neutrophils % Seg Neuts % (Manual) Lymphocytes % (Manual) Monocytes % (Manual) Seg Neutrophils # Seg Neutrophils # Man Lymphocytes # (Manual) Monocytes # (Manual) Eosinophils # (Manual) Basophils # (Manual) PT INR APTT ABG pH ABG pO2 ABG HCO3 ABG O2 Saturation ABG Base Excess ABG Hemoglobin Oxyhemoglobin Sodium Potassium Chloride Carbon Dioxide BUN 23 H Creatinine 0.5 L Glucose 121 H POC Glucose 127 H 130 H Lactic Acid Calcium 10.3 H Ionized Calcium Phosphorus Magnesium Total Bilirubin AST ALT Alkaline Phosphatase Ammonia Total Creatine Kinase CK-MB (CK-2) CK-MB (CK-2) Rel Index Total Protein Albumin Urine WBC (Auto) Vancomycin Trough Salicylates Acetaminophen Plasma/Serum Alcohol Crossmatch 03/25/20 03/25/20 03/26/20 12:50 15:57 05:39 WBC RBC Hgb Hct MCH RDW Plt Count Lymph % (Auto) [place] % (Auto) [place] # Baso # Seg Neutrophils % Seg Neuts % (Manual) Lymphocytes % (Manual) Monocytes % (Manual) Seg Neutrophils # Seg Neutrophils # Man Lymphocytes # (Manual) Monocytes # (Manual) Eosinophils # (Manual) Basophils # (Manual) PT INR APTT ABG pH ABG pO2 ABG HCO3 ABG O2 Saturation ABG Base Excess ABG Hemoglobin Oxyhemoglobin Sodium Potassium Chloride Carbon Dioxide BUN Creatinine Glucose POC Glucose 145 H 118 H 136 H Lactic Acid Calcium Ionized Calcium Phosphorus Magnesium Total Bilirubin AST ALT Alkaline Phosphatase Ammonia Total Creatine Kinase CK-MB (CK-2) CK-MB (CK-2) Rel Index Total Protein Albumin Urine WBC (Auto) Vancomycin Trough Salicylates Acetaminophen Plasma/Serum Alcohol Crossmatch 03/26/20 03/26/20 03/27/20 16:04 23:17 11:31 WBC RBC Hgb Hct MCH RDW Plt Count Lymph % (Auto) [place] % (Auto) [place] # Baso # Seg Neutrophils % Seg Neuts % (Manual) Lymphocytes % (Manual) Monocytes % (Manual) Seg Neutrophils # Seg Neutrophils # Man Lymphocytes # (Manual) Monocytes # (Manual) Eosinophils # (Manual) Basophils # (Manual) PT INR APTT ABG pH ABG pO2 ABG HCO3 ABG O2 Saturation ABG Base Excess ABG Hemoglobin Oxyhemoglobin Sodium Potassium Chloride Carbon Dioxide BUN Creatinine Glucose POC Glucose 157 H 157 H 121 H Lactic Acid Calcium Ionized Calcium Phosphorus Magnesium Total Bilirubin AST ALT Alkaline Phosphatase Ammonia Total Creatine Kinase CK-MB (CK-2) CK-MB (CK-2) Rel Index Total Protein Albumin Urine WBC (Auto) Vancomycin Trough Salicylates Acetaminophen Plasma/Serum Alcohol Crossmatch 03/27/20 03/28/20 03/28/20 16:33 01:55 12:12 WBC RBC Hgb Hct MCH RDW Plt Count Lymph % (Auto) [place] % (Auto) [place] # Baso # Seg Neutrophils % Seg Neuts % (Manual) Lymphocytes % (Manual) Monocytes % (Manual) Seg Neutrophils # Seg Neutrophils # Man Lymphocytes # (Manual) Monocytes # (Manual) Eosinophils # (Manual) Basophils # (Manual) PT INR APTT ABG pH ABG pO2 ABG HCO3 ABG O2 Saturation ABG Base Excess ABG Hemoglobin Oxyhemoglobin Sodium Potassium Chloride Carbon Dioxide BUN Creatinine Glucose POC Glucose 126 H 106 H 116 H Lactic Acid Calcium Ionized Calcium Phosphorus Magnesium Total Bilirubin AST ALT Alkaline Phosphatase Ammonia Total Creatine Kinase CK-MB (CK-2) CK-MB (CK-2) Rel Index Total Protein Albumin Urine WBC (Auto) Vancomycin Trough Salicylates Acetaminophen Plasma/Serum Alcohol Crossmatch 03/28/20 03/29/20 03/29/20 17:57 06:41 16:48 WBC RBC Hgb Hct MCH RDW Plt Count Lymph % (Auto) [place] % (Auto) [place] # Baso # Seg Neutrophils % Seg Neuts % (Manual) Lymphocytes % (Manual) Monocytes % (Manual) Seg Neutrophils # Seg Neutrophils # Man Lymphocytes # (Manual) Monocytes # (Manual) Eosinophils # (Manual) Basophils # (Manual) PT INR APTT ABG pH ABG pO2 ABG HCO3 ABG O2 Saturation ABG Base Excess ABG Hemoglobin Oxyhemoglobin Sodium Potassium Chloride Carbon Dioxide BUN Creatinine Glucose POC Glucose 138 H 154 H 136 H Lactic Acid Calcium Ionized Calcium Phosphorus Magnesium Total Bilirubin AST ALT Alkaline Phosphatase Ammonia Total Creatine Kinase CK-MB (CK-2) CK-MB (CK-2) Rel Index Total Protein Albumin Urine WBC (Auto) Vancomycin Trough Salicylates Acetaminophen Plasma/Serum Alcohol Crossmatch 03/30/20 03/30/20 03/31/20 05:44 12:16 16:37 WBC RBC Hgb Hct MCH RDW Plt Count Lymph % (Auto) [place] % (Auto) [place] # Baso # Seg Neutrophils % Seg Neuts % (Manual) Lymphocytes % (Manual) Monocytes % (Manual) Seg Neutrophils # Seg Neutrophils # Man Lymphocytes # (Manual) Monocytes # (Manual) Eosinophils # (Manual) Basophils # (Manual) PT INR APTT ABG pH ABG pO2 ABG HCO3 ABG O2 Saturation ABG Base Excess ABG Hemoglobin Oxyhemoglobin Sodium Potassium Chloride Carbon Dioxide BUN Creatinine Glucose POC Glucose 110 H 122 H 128 H Lactic Acid Calcium Ionized Calcium Phosphorus Magnesium Total Bilirubin AST ALT Alkaline Phosphatase Ammonia Total Creatine Kinase CK-MB (CK-2) CK-MB (CK-2) Rel Index Total Protein Albumin Urine WBC (Auto) Vancomycin Trough Salicylates Acetaminophen Plasma/Serum Alcohol Crossmatch 04/01/20 04/02/20 04/02/20 22:51 11:38 16:35 WBC RBC Hgb Hct MCH RDW Plt Count Lymph % (Auto) [place] % (Auto) [place] # Baso # Seg Neutrophils % Seg Neuts % (Manual) Lymphocytes % (Manual) Monocytes % (Manual) Seg Neutrophils # Seg Neutrophils # Man Lymphocytes # (Manual) Monocytes # (Manual) Eosinophils # (Manual) Basophils # (Manual) PT INR APTT ABG pH ABG pO2 ABG HCO3 ABG O2 Saturation ABG Base Excess ABG Hemoglobin Oxyhemoglobin Sodium Potassium Chloride Carbon Dioxide BUN Creatinine Glucose POC Glucose 132 H 128 H 108 H Lactic Acid Calcium Ionized Calcium Phosphorus Magnesium Total Bilirubin AST ALT Alkaline Phosphatase Ammonia Total Creatine Kinase CK-MB (CK-2) CK-MB (CK-2) Rel Index Total Protein Albumin Urine WBC (Auto) Vancomycin Trough Salicylates Acetaminophen Plasma/Serum Alcohol Crossmatch 04/05/20 04/11/20 04/11/20 00:16 12:27 15:54 WBC RBC Hgb Hct MCH RDW Plt Count Lymph % (Auto) [place] % (Auto) [place] # Baso # Seg Neutrophils % Seg Neuts % (Manual) Lymphocytes % (Manual) Monocytes % (Manual) Seg Neutrophils # Seg Neutrophils # Man Lymphocytes # (Manual) Monocytes # (Manual) Eosinophils # (Manual) Basophils # (Manual) PT INR APTT ABG pH ABG pO2 ABG HCO3 ABG O2 Saturation ABG Base Excess ABG Hemoglobin Oxyhemoglobin Sodium Potassium Chloride Carbon Dioxide BUN Creatinine Glucose POC Glucose 117 H 123 H 114 H Lactic Acid Calcium Ionized Calcium Phosphorus Magnesium Total Bilirubin AST ALT Alkaline Phosphatase Ammonia Total Creatine Kinase CK-MB (CK-2) CK-MB (CK-2) Rel Index Total Protein Albumin Urine WBC (Auto) Vancomycin Trough Salicylates Acetaminophen Plasma/Serum Alcohol Crossmatch 04/11/20 04/13/20 04/16/20 21:55 16:39 05:00 WBC RBC Hgb Hct MCH RDW Plt Count Lymph % (Auto) [place] % (Auto) [place] # Baso # Seg Neutrophils % Seg Neuts % (Manual) Lymphocytes % (Manual) Monocytes % (Manual) Seg Neutrophils # Seg Neutrophils # Man Lymphocytes # (Manual) Monocytes # (Manual) Eosinophils # (Manual) Basophils # (Manual) PT INR APTT ABG pH ABG pO2 ABG HCO3 ABG O2 Saturation ABG Base Excess ABG Hemoglobin Oxyhemoglobin Sodium Potassium 3.2 L Chloride 107.4 H Carbon Dioxide BUN Creatinine 0.4 L Glucose POC Glucose 126 H 112 H Lactic Acid Calcium Ionized Calcium Phosphorus Magnesium Total Bilirubin AST ALT Alkaline Phosphatase Ammonia Total Creatine Kinase CK-MB (CK-2) CK-MB (CK-2) Rel Index Total Protein Albumin Urine WBC (Auto) Vancomycin Trough Salicylates Acetaminophen Plasma/Serum Alcohol Crossmatch 04/16/20 04/24/20 05/01/20 09:02 18:35 07:57 WBC RBC Hgb Hct MCH RDW Plt Count 502 H 498 H Lymph % (Auto) [place] % (Auto) 7.4 H [place] # Baso # Seg Neutrophils % Seg Neuts % (Manual) Lymphocytes % (Manual) Monocytes % (Manual) Seg Neutrophils # Seg Neutrophils # Man Lymphocytes # (Manual) Monocytes # (Manual) Eosinophils # (Manual) Basophils # (Manual) PT INR APTT ABG pH ABG pO2 ABG HCO3 ABG O2 Saturation ABG Base Excess ABG Hemoglobin Oxyhemoglobin Sodium Potassium Chloride Carbon Dioxide BUN Creatinine Glucose POC Glucose 172 H Lactic Acid Calcium Ionized Calcium Phosphorus Magnesium Total Bilirubin AST ALT Alkaline Phosphatase Ammonia Total Creatine Kinase CK-MB (CK-2) CK-MB (CK-2) Rel Index Total Protein Albumin Urine WBC (Auto) Vancomycin Trough Salicylates Acetaminophen Plasma/Serum Alcohol Crossmatch 05/01/20 07:57 WBC RBC Hgb Hct MCH RDW Plt Count Lymph % (Auto) [place] % (Auto) [place] # Baso # Seg Neutrophils % Seg Neuts % (Manual) Lymphocytes % (Manual) Monocytes % (Manual) Seg Neutrophils # Seg Neutrophils # Man Lymphocytes # (Manual) Monocytes # (Manual) Eosinophils # (Manual) Basophils # (Manual) PT INR APTT ABG pH ABG pO2 ABG HCO3 ABG O2 Saturation ABG Base Excess ABG Hemoglobin Oxyhemoglobin Sodium Potassium Chloride Carbon Dioxide BUN 21 H Creatinine Glucose POC Glucose Lactic Acid Calcium 10.6 H Ionized Calcium Phosphorus Magnesium Total Bilirubin AST ALT Alkaline Phosphatase Ammonia Total Creatine Kinase CK-MB (CK-2) CK-MB (CK-2) Rel Index Total Protein Albumin Urine WBC (Auto) Vancomycin Trough Salicylates Acetaminophen Plasma/Serum Alcohol Crossmatch Allied health notes reviewed: RT
--- NOTE | 2020-05-07 15:42 | Progress Note ---
Assessment and Plan / Anoxic brain injury: suspected CT head: No acute abnormality. EEG ordered showed Generalized slowing. No seizures or epileptiform activity. -Patient now opening her eyes, can speak and able to follow command - as needed haldol for agitation /Acute Respiratory failure - due to MSSA PNA -s/p intubation, s/p trach and PEG on 12/12 with mechanical ventilation, s/p T- piece, now on RA - CTA was done and negative for PE, - Echo quality is poor, showed diastolic dysfunction /Anemia, microcytic - Status post 3 units PRBC transfusion, H&H low stable /Acute metabolic encephalopathy/toxic encephalopathy due to the above - cont supportive care /Hyperammonemia - likely from liver disease related to EtOH abuse - Patient had elevated ammonia level and treated with lactulose /Metabolic Acidosis -Alcohol ketoacidosis vs hypoprofusion -Continue to monitor /ELevated LFTs, stable now - due to ischemic hepatitis. /Leucocytosis with sepsis - Source MRSA bacteremia and MSSA pneumonia. UA showed pyuria. RUQ US showed no ascites. - Repeat TTE negative for vegetation. Completed 7 days of Ceftriaxone on 11/29/2019. -Treated with Abx vancomycin 1 gm IV q 12 hour total 2 week till 12/30/2019 /MSSA pneumonia: Status post vancomycin till 12/30/2019 /ALcohol USe Disorder - given ongoing Alcohol use almost daily, s/p IV Thiamine - monitor /Severe hypokalemia -Repleted /Seizure disorder: treat with Keppra /H. Influenzae, tracheobronchitis, treated with abx /Moderate to severe fecal impaction - will add stool softner DNR CODE STATUS Disposition: prognosis guarded. Family okay for DNR, PT recommended subacute rehab, discharge pending on placement. negative for COVID 19 Brief History: 54-year-old female with a past medical history of Hypertension, Depression, Tobacco use Disorder, Alcohol use Disorder as confirmed by Daughter and pt's mother presents to the hospital status post cardiac arrest at home. EMS found [place]. They were unable to intubate patient with a ET tube because she was clenching down therefore Joe airway placed. Per the ED physician who evaluated pt, Patient presented with a pulse, intermittent respirations, and bagging support via Joe airway with O2 sat of 100%. Accu-Chek of 71 obtained by EMS. She was intubated in the ER and called for admission. Following admission patient was diagnosed with anoxic brain injury, sepsis with MRSA bacteremia and MSSA pneumonia, alcoholic liver disease. Family member initially wished for full code then changed to DNR, patient treated with IV antibiotics for sepsis, status post trach and PEG on 12/13/19. Weaned off from the vent and put on T- piece. Patient is uninsured, waiting for placement, guarded prognosis. Physical exam: General appearance: Present: other (elderly female, open eyes) - EENT Eyes: no scleral icterus, no conjunctival injection, pupil not reactive ENT: clear oral mucosa, dentition normal, no oropharyngeal erythema Ears: bilateral: normal - Neck Neck: trach on place - Respiratory Respiratory effort: other (on T-piece) Respiratory: bilateral: rales - Cardiovascular Rhythm: regular Heart Sounds: Present: S1 & S2. Absent: gallop, rub Extremities: pulses intact, No edema, normal color - Gastrointestinal General gastrointestinal: Present: soft, non-tender, non-distended, normal bowel sounds - Integumentary Integumentary: clear, warm, dry - Musculoskeletal Musculoskeletal: No joint swelling or tenderness - Neurologic Neurologic: other (2+ reflexes throughout). respond to commend and nods head. generalized weakness, verbal - Psychiatric Psychiatric: co-operative but confused Subjective Date of service: 05/07/20 Principal diagnosis: Ac cardiopulmonary arrest; Ac hypoxemic resp failure; Acute encephalopathy Interval history: Patient seen and examined medical records reviewed Patient is alert and awake not in acute distress Vital signs noted, REMAINS CONFUSED discharge pending on placement, remains on restraint Objective - Exam Narrative Exam: General appearance: Present: elderly female, open eyes) - EENT Eyes: no scleral icterus, no conjunctival injection, pupil not reactive ENT: clear oral mucosa, dentition normal, no oropharyngeal erythema Ears: bilateral: normal - Neck Neck: trach on place - Respiratory Respiratory effort: normal Respiratory: bilateral: rales - Cardiovascular Rhythm: regular Heart Sounds: Present: S1 & S2. Absent: gallop, rub Extremities: pulses intact, No edema, normal color - Gastrointestinal General gastrointestinal: Present: soft, non-tender, non-distended, normal bowel sounds - Integumentary Integumentary: clear, warm, dry - Musculoskeletal Musculoskeletal: does not respond to commend - Neurologic Neurologic: follow commands or move extremities - Psychiatric Psychiatric: no appropriate mood/affect, no intact judgment & insight, no memory intact- confused - Constitutional Vitals: Vital Signs - 12hr 05/07/20 05/07/20 05/07/20 04:26 09:44 10:03 Temperature 97.4 F L 97.9 F Pulse Rate 105 H 86 Respiratory 20 18 Rate Blood Pressure 124/88 164/94 O2 Sat by Pulse 100 97 100 Oximetry - Labs CBC & Chem 7: 05/01/20 07:57 05/01/20 07:57 HEART Score - HEART Score Troponin: Troponin T < 0.010 ng/mL (0.00-0.029) 11/22/19 23:27
[2020-05-07] MEDS: ENOXAPARIN 40 MG/0.4 ML INJ SUB-Q SCH (21:57)
[2020-05-08] MEDS: hydrOXYzine PAMOATE 25 MG CAP PO SCH ×2 (12:03→20:22)
[2020-05-08] MEDS: FOLIC ACID 1 MG TAB PO SCH (12:03)
[2020-05-08] MEDS: LANSOPRAZOLE 30 MG SOLUTAB FEEDTUBE SCH (12:03)
[2020-05-08] MEDS: SERTRALINE 50 MG TAB PO SCH (12:03)
[2020-05-08] MEDS: SCOPOLAMINE TRANSDERMAL PATCH 72 HR TD SCH (12:04)
[2020-05-08] MEDS: levETIRAcetam 500 MG/5 ML ORAL LIQD PO SCH ×2 (12:05→20:22)
[2020-05-08] MEDS: NICOTINE 21 MG/24 HR PATCH TD SCH (12:05)
--- NOTE | 2020-05-08 13:40 | Progress Note ---
Assessment and Plan / Anoxic brain injury: suspected CT head: No acute abnormality. EEG ordered showed Generalized slowing. No seizures or epileptiform activity. -Patient now opening her eyes, can speak and able to follow command - as needed haldol for agitation /Acute Respiratory failure - due to MSSA PNA -s/p intubation, s/p trach and PEG on 12/12 with mechanical ventilation, s/p T- piece, now on RA - CTA was done and negative for PE, - Echo quality is poor, showed diastolic dysfunction /Anemia, microcytic - Status post 3 units PRBC transfusion, H&H low stable /Acute metabolic encephalopathy/toxic encephalopathy due to the above - cont supportive care /Hyperammonemia - likely from liver disease related to EtOH abuse - Patient had elevated ammonia level and treated with lactulose /Metabolic Acidosis -Alcohol ketoacidosis vs hypoprofusion -Continue to monitor /ELevated LFTs, stable now - due to ischemic hepatitis. /Leucocytosis with sepsis - Source MRSA bacteremia and MSSA pneumonia. UA showed pyuria. RUQ US showed no ascites. - Repeat TTE negative for vegetation. Completed 7 days of Ceftriaxone on 11/29/2019. -Treated with Abx vancomycin 1 gm IV q 12 hour total 2 week till 12/30/2019 /MSSA pneumonia: Status post vancomycin till 12/30/2019 /ALcohol USe Disorder - given ongoing Alcohol use almost daily, s/p IV Thiamine - monitor /Severe hypokalemia -Repleted /Seizure disorder: treat with Keppra /H. Influenzae, tracheobronchitis, treated with abx /Moderate to severe fecal impaction - will add stool softner DNR CODE STATUS Disposition: prognosis guarded. Family okay for DNR, PT recommended subacute rehab, discharge pending on placement. negative for COVID 19 Brief History: 54-year-old female with a past medical history of Hypertension, Depression, Tobacco use Disorder, Alcohol use Disorder as confirmed by Daughter and pt's mother presents to the hospital status post cardiac arrest at home. EMS found pt [place]. They were unable to intubate patient with a ET tube because she was clenching down therefore Joe airway placed. Per the ED physician who evaluated pt, Patient presented with a pulse, intermittent respirations, and bagging support via Joe airway with O2 sat of 100%. Accu-Chek of 71 obtained by EMS. She was intubated in the ER and called for admission. Following admission patient was diagnosed with anoxic brain injury, sepsis with MRSA bacteremia and MSSA pneumonia, alcoholic liver disease. Family member initially wished for full code then changed to DNR, patient treated with IV antibiotics for sepsis, status post trach and PEG on 12/13/19. Weaned off from the vent and put on T- piece. Patient is uninsured, waiting for placement, guarded prognosis. Physical exam: General appearance: Present: other (elderly female, open eyes) - EENT Eyes: no scleral icterus, no conjunctival injection, pupil not reactive ENT: clear oral mucosa, dentition normal, no oropharyngeal erythema Ears: bilateral: normal - Neck Neck: trach on place - Respiratory Respiratory effort: other (on T-piece) Respiratory: bilateral: rales - Cardiovascular Rhythm: regular Heart Sounds: Present: S1 & S2. Absent: gallop, rub Extremities: pulses intact, No edema, normal color - Gastrointestinal General gastrointestinal: Present: soft, non-tender, non-distended, normal bowel sounds - Integumentary Integumentary: clear, warm, dry - Musculoskeletal Musculoskeletal: No joint swelling or tenderness - Neurologic Neurologic: other (2+ reflexes throughout). respond to commend and nods head. generalized weakness, verbal - Psychiatric Psychiatric: co-operative but confused Subjective Date of service: 05/08/20 Principal diagnosis: Ac cardiopulmonary arrest; Ac hypoxemic resp failure; Acute encephalopathy Interval history: Patient seen and examined medical records reviewed Patient is alert and awake not in acute distress Vital signs noted, REMAINS CONFUSED discharge pending on placement, remains on restraint Objective - Exam Narrative Exam: General appearance: Present: elderly female, open eyes) - EENT Eyes: no scleral icterus, no conjunctival injection, pupil not reactive ENT: clear oral mucosa, dentition normal, no oropharyngeal erythema Ears: bilateral: normal - Neck Neck: trach on place - Respiratory Respiratory effort: normal Respiratory: bilateral: rales - Cardiovascular Rhythm: regular Heart Sounds: Present: S1 & S2. Absent: gallop, rub Extremities: pulses intact, No edema, normal color - Gastrointestinal General gastrointestinal: Present: soft, non-tender, non-distended, normal bowel sounds - Integumentary Integumentary: clear, warm, dry - Musculoskeletal Musculoskeletal: does not respond to commend - Neurologic Neurologic: follow commands or move extremities - Psychiatric Psychiatric: no appropriate mood/affect, no intact judgment & insight, no memory intact- confused - Constitutional Vitals: Vital Signs - 12hr 05/08/20 05/08/20 05/08/20 03:57 08:02 11:39 Temperature 98.0 F 98.2 F 98.1 F Pulse Rate 109 H 109 H Respiratory 20 20 18 Rate Blood Pressure 131/95 143/95 113/80 O2 Sat by Pulse 99 92 Oximetry - Labs CBC & Chem 7: 05/01/20 07:57 05/01/20 07:57 HEART Score - HEART Score Troponin: Troponin T < 0.010 ng/mL (0.00-0.029) 11/22/19 23:27
[2020-05-08] MEDS: guaiFENesin DM 200/20 MG ORAL LIQD 10 ML PO PRN (20:22)
[2020-05-08] MEDS: ENOXAPARIN 40 MG/0.4 ML INJ SUB-Q SCH ×2 (20:22→22:50)
[2020-05-09] MEDS ORDERED: LORazepam 2 MG/ML VIAL IV ONE (01:00)
[2020-05-09] MEDS: LORazepam 1 MG TAB PO SCH ×2 (06:50→21:29)
[2020-05-09] MEDS: levETIRAcetam 500 MG/5 ML ORAL LIQD PO SCH ×3 (06:51→21:29)
[2020-05-09] MEDS: hydrOXYzine PAMOATE 25 MG CAP PO SCH ×3 (06:51→21:29)
[2020-05-09] MEDS: NICOTINE 21 MG/24 HR PATCH TD SCH (10:22)
[2020-05-09] MEDS: FOLIC ACID 1 MG TAB PO SCH (10:22)
[2020-05-09] MEDS: LANSOPRAZOLE 30 MG SOLUTAB FEEDTUBE SCH (10:22)
[2020-05-09] MEDS: SERTRALINE 50 MG TAB PO SCH (10:22)
--- NOTE | 2020-05-09 16:50 | Progress Note ---
Assessment and Plan / Anoxic brain injury: suspected CT head: No acute abnormality. EEG ordered showed Generalized slowing. No seizures or epileptiform activity. -Patient now opening her eyes, can speak and able to follow command - as needed haldol for agitation /Acute Respiratory failure - due to MSSA PNA -s/p intubation, s/p trach and PEG on 12/12 with mechanical ventilation, s/p T- piece, now on RA - CTA was done and negative for PE, - Echo quality is poor, showed diastolic dysfunction /Anemia, microcytic - Status post 3 units PRBC transfusion, H&H low stable /Acute metabolic encephalopathy/toxic encephalopathy due to the above - cont supportive care /Hyperammonemia - likely from liver disease related to EtOH abuse - Patient had elevated ammonia level and treated with lactulose /Metabolic Acidosis -Alcohol ketoacidosis vs hypoprofusion -Continue to monitor /ELevated LFTs, stable now - due to ischemic hepatitis. /Leucocytosis with sepsis - Source MRSA bacteremia and MSSA pneumonia. UA showed pyuria. RUQ US showed no ascites. - Repeat TTE negative for vegetation. Completed 7 days of Ceftriaxone on 11/29/2019. -Treated with Abx vancomycin 1 gm IV q 12 hour total 2 week till 12/30/2019 /MSSA pneumonia: Status post vancomycin till 12/30/2019 /ALcohol USe Disorder - given ongoing Alcohol use almost daily, s/p IV Thiamine - monitor /Severe hypokalemia -Repleted /Seizure disorder: treat with Keppra /H. Influenzae, tracheobronchitis, treated with abx /Moderate to severe fecal impaction - will add stool softner DNR CODE STATUS Disposition: prognosis guarded. Family okay for DNR, PT recommended subacute rehab, discharge pending on placement. negative for COVID 19 Brief History: 54-year-old female with a past medical history of Hypertension, Depression, Tobacco use Disorder, Alcohol use Disorder as confirmed by Daughter and pt's mother presents to the hospital status post cardiac arrest at home. EMS found pt [place]. They were unable to intubate patient with a ET tube because she was clenching down therefore Joe airway placed. Per the ED physician who evaluated pt, Patient presented with a pulse, intermittent respirations, and bagging support via Joe airway with O2 sat of 100%. Accu-Chek of 71 obtained by EMS. She was intubated in the ER and called for admission. Following admission patient was diagnosed with anoxic brain injury, sepsis with MRSA bacteremia and MSSA pneumonia, alcoholic liver disease. Family member initially wished for full code then changed to DNR, patient treated with IV antibiotics for sepsis, status post trach and PEG on 12/13/19. Weaned off from the vent and put on T- piece. Patient is uninsured, waiting for placement, guarded prognosis. Physical exam: General appearance: Present: other (elderly female, open eyes) - EENT Eyes: no scleral icterus, no conjunctival injection, pupil not reactive ENT: clear oral mucosa, dentition normal, no oropharyngeal erythema Ears: bilateral: normal - Neck Neck: trach on place - Respiratory Respiratory effort: other (on T-piece) Respiratory: bilateral: rales - Cardiovascular Rhythm: regular Heart Sounds: Present: S1 & S2. Absent: gallop, rub Extremities: pulses intact, No edema, normal color - Gastrointestinal General gastrointestinal: Present: soft, non-tender, non-distended, normal bowel sounds - Integumentary Integumentary: clear, warm, dry - Musculoskeletal Musculoskeletal: No joint swelling or tenderness - Neurologic Neurologic: other (2+ reflexes throughout). respond to commend and nods head. generalized weakness, verbal - Psychiatric Psychiatric: co-operative but confused Subjective Date of service: 05/09/20 Principal diagnosis: Ac cardiopulmonary arrest; Ac hypoxemic resp failure; Acute encephalopathy Interval history: Patient seen and examined medical records reviewed Patient is alert and awake not in acute distress Vital signs noted, REMAINS CONFUSED discharge pending on placement, remains on restraint Objective - Exam Narrative Exam: General appearance: Present: elderly female, open eyes) - EENT Eyes: no scleral icterus, no conjunctival injection, pupil not reactive ENT: clear oral mucosa, dentition normal, no oropharyngeal erythema Ears: bilateral: normal - Neck Neck: trach on place - Respiratory Respiratory effort: normal Respiratory: bilateral: rales - Cardiovascular Rhythm: regular Heart Sounds: Present: S1 & S2. Absent: gallop, rub Extremities: pulses intact, No edema, normal color - Gastrointestinal General gastrointestinal: Present: soft, non-tender, non-distended, normal bowel sounds - Integumentary Integumentary: clear, warm, dry - Musculoskeletal Musculoskeletal: does not respond to commend - Neurologic Neurologic: follow commands or move extremities - Psychiatric Psychiatric: no appropriate mood/affect, no intact judgment & insight, no memory intact- confused - Constitutional Vitals: Vital Signs - 12hr 05/09/20 05/09/20 05/09/20 04:58 08:18 16:18 Temperature 64 F L 98.4 F 98.3 F Pulse Rate 84 81 Respiratory 20 20 Rate Blood Pressure 181/119 167/107 O2 Sat by Pulse 98 93 Oximetry - Labs CBC & Chem 7: 05/01/20 07:57 05/01/20 07:57 Labs: Abnormal lab results 05/09/20 Range/Units 11:36 POC Glucose 152 H (70-105) HEART Score - HEART Score Troponin: Troponin T < 0.010 ng/mL (0.00-0.029) 11/22/19 23:27
[2020-05-09] MEDS: ENOXAPARIN 40 MG/0.4 ML INJ SUB-Q SCH (21:28)
[2020-05-10] MEDS: NICOTINE 21 MG/24 HR PATCH TD SCH (09:32)
[2020-05-10] MEDS: SERTRALINE 50 MG TAB PO SCH (09:32)
[2020-05-10] MEDS: levETIRAcetam 500 MG/5 ML ORAL LIQD PO SCH ×2 (09:32→21:36)
[2020-05-10] MEDS: FOLIC ACID 1 MG TAB PO SCH (09:32)
[2020-05-10] MEDS: MIRTAZAPINE 30 MG TAB PO SCH (09:33)
[2020-05-10] MEDS: LANSOPRAZOLE 30 MG SOLUTAB FEEDTUBE SCH (09:33)
[2020-05-10] MEDS: hydrOXYzine PAMOATE 25 MG CAP PO SCH ×2 (09:48→21:36)
--- NOTE | 2020-05-10 16:00 | Progress Note ---
Assessment and Plan / Anoxic brain injury: suspected CT head: No acute abnormality. EEG ordered showed Generalized slowing. No seizures or epileptiform activity. -Patient now opening her eyes, can speak and able to follow command - as needed haldol for agitation /Acute Respiratory failure - due to MSSA PNA -s/p intubation, s/p trach and PEG on 12/12 with mechanical ventilation, s/p T- piece, now on RA - CTA was done and negative for PE, - Echo quality is poor, showed diastolic dysfunction /Anemia, microcytic - Status post 3 units PRBC transfusion, H&H low stable /Acute metabolic encephalopathy/toxic encephalopathy due to the above - cont supportive care /Hyperammonemia - likely from liver disease related to EtOH abuse - Patient had elevated ammonia level and treated with lactulose /Metabolic Acidosis -Alcohol ketoacidosis vs hypoprofusion -Continue to monitor /ELevated LFTs, stable now - due to ischemic hepatitis. /Leucocytosis with sepsis - Source MRSA bacteremia and MSSA pneumonia. UA showed pyuria. RUQ US showed no ascites. - Repeat TTE negative for vegetation. Completed 7 days of Ceftriaxone on 11/29/2019. -Treated with Abx vancomycin 1 gm IV q 12 hour total 2 week till 12/30/2019 /MSSA pneumonia: Status post vancomycin till 12/30/2019 /ALcohol USe Disorder - given ongoing Alcohol use almost daily, s/p IV Thiamine - monitor /Severe hypokalemia -Repleted /Seizure disorder: treat with Keppra /H. Influenzae, tracheobronchitis, treated with abx /Moderate to severe fecal impaction - will add stool softner DNR CODE STATUS Disposition: prognosis guarded. Family okay for DNR, PT recommended subacute rehab, discharge pending on placement. negative for COVID 19 Brief History: 54-year-old female with a past medical history of Hypertension, Depression, Tobacco use Disorder, Alcohol use Disorder as confirmed by Daughter and pt's mother presents to the hospital status post cardiac arrest at home. EMS found [place] in [place]. They were unable to intubate patient with a ET tube because she was clenching down therefore Joe airway placed. Per the ED physician who evaluated pt, Patient presented with a pulse, intermittent respirations, and bagging support via Joe airway with O2 sat of 100%. Accu-Chek of 71 obtained by EMS. She was intubated in the ER and called for admission. Following admission patient was diagnosed with anoxic brain injury, sepsis with MRSA bacteremia and MSSA pneumonia, alcoholic liver disease. Family member initially wished for full code then changed to DNR, patient treated with IV antibiotics for sepsis, status post trach and PEG on 12/13/19. Weaned off from the vent and put on T- piece. Patient is uninsured, waiting for placement, guarded prognosis. Physical exam: General appearance: Present: other (elderly female, open eyes) - EENT Eyes: no scleral icterus, no conjunctival injection, pupil not reactive ENT: clear oral mucosa, dentition normal, no oropharyngeal erythema Ears: bilateral: normal - Neck Neck: trach on place - Respiratory Respiratory effort: other (on T-piece) Respiratory: bilateral: rales - Cardiovascular Rhythm: regular Heart Sounds: Present: S1 & S2. Absent: gallop, rub Extremities: pulses intact, No edema, normal color - Gastrointestinal General gastrointestinal: Present: soft, non-tender, non-distended, normal bowel sounds - Integumentary Integumentary: clear, warm, dry - Musculoskeletal Musculoskeletal: No joint swelling or tenderness - Neurologic Neurologic: other (2+ reflexes throughout). respond to commend and nods head. generalized weakness, verbal - Psychiatric Psychiatric: co-operative but confused Subjective Date of service: 05/10/20 Principal diagnosis: Ac cardiopulmonary arrest; Ac hypoxemic resp failure; Acute encephalopathy Interval history: Patient seen and examined medical records reviewed Patient is alert and awake not in acute distress Vital signs noted, REMAINS CONFUSED discharge pending on placement, remains on restraint Objective - Exam Narrative Exam: General appearance: Present: elderly female, open eyes) - EENT Eyes: no scleral icterus, no conjunctival injection, pupil not reactive ENT: clear oral mucosa, dentition normal, no oropharyngeal erythema Ears: bilateral: normal - Neck Neck: trach on place - Respiratory Respiratory effort: normal Respiratory: bilateral: rales - Cardiovascular Rhythm: regular Heart Sounds: Present: S1 & S2. Absent: gallop, rub Extremities: pulses intact, No edema, normal color - Gastrointestinal General gastrointestinal: Present: soft, non-tender, non-distended, normal bowel sounds - Integumentary Integumentary: clear, warm, dry - Musculoskeletal Musculoskeletal: does not respond to commend - Neurologic Neurologic: follow commands or move extremities - Psychiatric Psychiatric: no appropriate mood/affect, no intact judgment & insight, no memory intact- confused - Constitutional Vitals: Vital Signs - 12hr 05/10/20 05/10/20 05/10/20 04:13 07:57 08:42 Temperature 99.0 F 98.2 F Pulse Rate 95 H 92 H Pulse Rate [ 80 Apical] Respiratory 18 18 18 Rate Blood Pressure 131/88 Blood Pressure 130/82 [Left] O2 Sat by Pulse 97 98 Oximetry 05/10/20 11:51 Temperature 98.6 F Pulse Rate 86 Pulse Rate [ Apical] Respiratory 18 Rate Blood Pressure Blood Pressure 136/76 [Left] O2 Sat by Pulse 96 Oximetry - Labs CBC & Chem 7: 05/01/20 07:57 05/01/20 07:57 HEART Score - HEART Score Troponin: Troponin T < 0.010 ng/mL (0.00-0.029) 11/22/19 23:27
[2020-05-10] MEDS: ENOXAPARIN 40 MG/0.4 ML INJ SUB-Q SCH (21:36)
[2020-05-10] MEDS: LORazepam 1 MG TAB PO SCH (21:36)
[2020-05-11] MEDS: levETIRAcetam 500 MG/5 ML ORAL LIQD PO SCH ×2 (10:39→21:10)
[2020-05-11] MEDS: SCOPOLAMINE TRANSDERMAL PATCH 72 HR TD SCH (10:39)
[2020-05-11] MEDS: FOLIC ACID 1 MG TAB PO SCH (10:39)
[2020-05-11] MEDS: NICOTINE 21 MG/24 HR PATCH TD SCH (10:39)
[2020-05-11] MEDS: MIRTAZAPINE 30 MG TAB PO SCH ×2 (10:39→10:45)
[2020-05-11] MEDS: LANSOPRAZOLE 30 MG SOLUTAB FEEDTUBE SCH (10:39)
[2020-05-11] MEDS: hydrOXYzine PAMOATE 25 MG CAP PO SCH ×2 (10:40→21:11)
[2020-05-11] MEDS: SERTRALINE 50 MG TAB PO SCH (10:44)
--- NOTE | 2020-05-11 11:02 | Progress Note ---
Assessment and Plan / Anoxic brain injury: suspected CT head: No acute abnormality. EEG ordered showed Generalized slowing. No seizures or epileptiform activity. -Patient now opening her eyes, can speak and able to follow command - as needed haldol for agitation /Acute Respiratory failure - due to MSSA PNA -s/p intubation, s/p trach and PEG on 12/12 with mechanical ventilation, s/p T- piece, now on RA - CTA was done and negative for PE, - Echo quality is poor, showed diastolic dysfunction /Anemia, microcytic - Status post 3 units PRBC transfusion, H&H low stable /Acute metabolic encephalopathy/toxic encephalopathy due to the above - cont supportive care /Hyperammonemia - likely from liver disease related to EtOH abuse - Patient had elevated ammonia level and treated with lactulose /Metabolic Acidosis -Alcohol ketoacidosis vs hypoprofusion -Continue to monitor /ELevated LFTs, stable now - due to ischemic hepatitis. /Leucocytosis with sepsis - Source MRSA bacteremia and MSSA pneumonia. UA showed pyuria. RUQ US showed no ascites. - Repeat TTE negative for vegetation. Completed 7 days of Ceftriaxone on 11/29/2019. -Treated with Abx vancomycin 1 gm IV q 12 hour total 2 week till 12/30/2019 /MSSA pneumonia: Status post vancomycin till 12/30/2019 /ALcohol USe Disorder - given ongoing Alcohol use almost daily, s/p IV Thiamine - monitor /Severe hypokalemia -Repleted /Seizure disorder: treat with Keppra /H. Influenzae, tracheobronchitis, treated with abx /Moderate to severe fecal impaction - will add stool softner DNR CODE STATUS Disposition: prognosis guarded. Family okay for DNR, PT recommended subacute rehab, discharge pending on placement. negative for COVID 19 Brief History: 54-year-old female with a past medical history of Hypertension, Depression, Tobacco use Disorder, Alcohol use Disorder as confirmed by Daughter and pt's mother presents to the hospital status post cardiac arrest at home. EMS found pt [place]. They were unable to intubate patient with a ET tube because she was clenching down therefore Joe airway placed. Per the ED physician who evaluated pt, Patient presented with a pulse, intermittent respirations, and bagging support via Joe airway with O2 sat of 100%. Accu-Chek of 71 obtained by EMS. She was intubated in the ER and called for admission. Following admission patient was diagnosed with anoxic brain injury, sepsis with MRSA bacteremia and MSSA pneumonia, alcoholic liver disease. Family member initially wished for full code then changed to DNR, patient treated with IV antibiotics for sepsis, status post trach and PEG on 12/13/19. Weaned off from the vent and put on T- piece. Patient is uninsured, waiting for placement, guarded prognosis. Physical exam: General appearance: Present: other (elderly female, open eyes) - EENT Eyes: no scleral icterus, no conjunctival injection, pupil not reactive ENT: clear oral mucosa, dentition normal, no oropharyngeal erythema Ears: bilateral: normal - Neck Neck: trach on place - Respiratory Respiratory effort: other (on T-piece) Respiratory: bilateral: rales - Cardiovascular Rhythm: regular Heart Sounds: Present: S1 & S2. Absent: gallop, rub Extremities: pulses intact, No edema, normal color - Gastrointestinal General gastrointestinal: Present: soft, non-tender, non-distended, normal bowel sounds - Integumentary Integumentary: clear, warm, dry - Musculoskeletal Musculoskeletal: No joint swelling or tenderness - Neurologic Neurologic: other (2+ reflexes throughout). respond to commend and nods head. generalized weakness, verbal - Psychiatric Psychiatric: co-operative but confused Subjective Date of service: 05/11/20 Principal diagnosis: Ac cardiopulmonary arrest; Ac hypoxemic resp failure; Acute encephalopathy Interval history: Patient seen and examined medical records reviewed Patient is alert and awake not in acute distress Vital signs noted, REMAINS CONFUSED discharge pending on placement, remains on restraint Objective - Exam Narrative Exam: General appearance: Present: elderly female, open eyes) - EENT Eyes: no scleral icterus, no conjunctival injection, pupil not reactive ENT: clear oral mucosa, dentition normal, no oropharyngeal erythema Ears: bilateral: normal - Neck Neck: trach on place - Respiratory Respiratory effort: normal Respiratory: bilateral: rales - Cardiovascular Rhythm: regular Heart Sounds: Present: S1 & S2. Absent: gallop, rub Extremities: pulses intact, No edema, normal color - Gastrointestinal General gastrointestinal: Present: soft, non-tender, non-distended, normal bowel sounds - Integumentary Integumentary: clear, warm, dry - Musculoskeletal Musculoskeletal: does not respond to commend - Neurologic Neurologic: follow commands or move extremities - Psychiatric Psychiatric: no appropriate mood/affect, no intact judgment & insight, no memory intact- confused - Constitutional Vitals: Vital Signs - 12hr 05/10/20 05/11/20 23:30 08:38 Temperature 98.0 F 98.0 F Pulse Rate 113 H 91 H Respiratory 22 16 Rate Blood Pressure 109/75 Blood Pressure 108/75 [Left] O2 Sat by Pulse 99 98 Oximetry - Labs CBC & Chem 7: 05/01/20 07:57 05/01/20 07:57 HEART Score - HEART Score Troponin: Troponin T < 0.010 ng/mL (0.00-0.029) 11/22/19 23:27
[2020-05-11] MEDS: ENOXAPARIN 40 MG/0.4 ML INJ SUB-Q SCH (21:11)
[2020-05-11] MEDS: LORazepam 1 MG TAB PO SCH (21:11)
[2020-05-11] MEDS: guaiFENesin DM 200/20 MG ORAL LIQD 10 ML PO PRN (22:16)
[2020-05-12] MEDS: LANSOPRAZOLE 30 MG SOLUTAB FEEDTUBE SCH (10:48)
[2020-05-12] MEDS: SERTRALINE 50 MG TAB PO SCH (10:48)
[2020-05-12] MEDS: FOLIC ACID 1 MG TAB PO SCH (10:49)
[2020-05-12] MEDS: levETIRAcetam 500 MG/5 ML ORAL LIQD PO SCH ×2 (10:49→21:21)
[2020-05-12] MEDS: NICOTINE 21 MG/24 HR PATCH TD SCH (10:49)
[2020-05-12] MEDS: MIRTAZAPINE 30 MG TAB PO SCH (10:49)
[2020-05-12] MEDS: hydrOXYzine PAMOATE 25 MG CAP PO SCH ×2 (10:49→21:21)
[2020-05-12] MEDS: guaiFENesin DM 200/20 MG ORAL LIQD 10 ML PO PRN ×2 (15:14→21:21)
--- NOTE | 2020-05-12 15:31 | Progress Note ---
Assessment and Plan / Anoxic brain injury: suspected CT head: No acute abnormality. EEG ordered showed Generalized slowing. No seizures or epileptiform activity. -Patient now opening her eyes, can speak and able to follow command - as needed haldol for agitation /Acute Respiratory failure - due to MSSA PNA -s/p intubation, s/p trach and PEG on 12/12 with mechanical ventilation, s/p T- piece, now on RA - CTA was done and negative for PE, - Echo quality is poor, showed diastolic dysfunction /Anemia, microcytic - Status post 3 units PRBC transfusion, H&H low stable /Acute metabolic encephalopathy/toxic encephalopathy due to the above - cont supportive care /Hyperammonemia - likely from liver disease related to EtOH abuse - Patient had elevated ammonia level and treated with lactulose /Metabolic Acidosis -Alcohol ketoacidosis vs hypoprofusion -Continue to monitor /ELevated LFTs, stable now - due to ischemic hepatitis. /Leucocytosis with sepsis - Source MRSA bacteremia and MSSA pneumonia. UA showed pyuria. RUQ US showed no ascites. - Repeat TTE negative for vegetation. Completed 7 days of Ceftriaxone on 11/29/2019. -Treated with Abx vancomycin 1 gm IV q 12 hour total 2 week till 12/30/2019 /MSSA pneumonia: Status post vancomycin till 12/30/2019 /ALcohol USe Disorder - given ongoing Alcohol use almost daily, s/p IV Thiamine - monitor /Severe hypokalemia -Repleted /Seizure disorder: treat with Keppra /H. Influenzae, tracheobronchitis, treated with abx /Moderate to severe fecal impaction - added stool softner DNR CODE STATUS Disposition: prognosis guarded. Family okay for DNR, PT recommended subacute rehab, discharge pending on placement. negative for COVID 19. Patient remains pleasantly confused and incoherent. Brief History: 54-year-old female with a past medical history of Hypertension, Depression, Tobacco use Disorder, Alcohol use Disorder as confirmed by Daughter and pt's mother presents to the hospital status post cardiac arrest at home. EMS found pt [place]. They were unable to intubate patient with a ET tube because she was clenching down therefore Joe airway placed. Per the ED physician who evaluated pt, Patient presented with a pulse, intermittent respirations, and bagging support via Joe airway with O2 sat of 100%. Accu-Chek of 71 obtained by EMS. She was intubated in the ER and called for admission. Following admission patient was diagnosed with anoxic brain injury, sepsis with MRSA bacteremia and MSSA pneumonia, alcoholic liver disease. Family member initially wished for full code then changed to DNR, patient treated with IV antibiotics for sepsis, status post trach and PEG on 12/13/19. Weaned off from the vent and put on T- piece, weaned off from T-piece will eventually. Patient is uninsured, now waiting for placement, guarded prognosis. Physical exam: General appearance: Present: other (elderly female, open eyes) - EENT Eyes: no scleral icterus, no conjunctival injection, pupil not reactive ENT: clear oral mucosa, dentition normal, no oropharyngeal erythema Ears: bilateral: normal - Neck Neck: trach on place - Respiratory Respiratory effort: other (on T-piece) Respiratory: bilateral: rales - Cardiovascular Rhythm: regular Heart Sounds: Present: S1 & S2. Absent: gallop, rub Extremities: pulses intact, No edema, normal color - Gastrointestinal General gastrointestinal: Present: soft, non-tender, non-distended, normal bowel sounds - Integumentary Integumentary: clear, warm, dry - Musculoskeletal Musculoskeletal: No joint swelling or tenderness - Neurologic Neurologic: other (2+ reflexes throughout). respond to commend and nods head. generalized weakness, verbal - Psychiatric Psychiatric: co-operative but confused Subjective Date of service: 05/12/20 Principal diagnosis: Ac cardiopulmonary arrest; Ac hypoxemic resp failure; Acute encephalopathy Interval history: Patient seen and examined medical records reviewed Patient is alert and awake not in acute distress Vital signs noted, REMAINS CONFUSED discharge pending on placement, remains on restraint Objective - Exam Narrative Exam: General appearance: Present: elderly female, open eyes) - EENT Eyes: no scleral icterus, no conjunctival injection, pupil not reactive ENT: clear oral mucosa, dentition normal, no oropharyngeal erythema Ears: bilateral: normal - Neck Neck: trach on place - Respiratory Respiratory effort: normal Respiratory: bilateral: rales - Cardiovascular Rhythm: regular Heart Sounds: Present: S1 & S2. Absent: gallop, rub Extremities: pulses intact, No edema, normal color - Gastrointestinal General gastrointestinal: Present: soft, non-tender, non-distended, normal bowel sounds - Integumentary Integumentary: clear, warm, dry - Musculoskeletal Musculoskeletal: does not respond to commend - Neurologic Neurologic: follow commands or move extremities - Psychiatric Psychiatric: no appropriate mood/affect, no intact judgment & insight, no memory intact- confused - Constitutional Vitals: Vital Signs - 12hr 05/12/20 05/12/20 05/12/20 04:02 07:27 10:00 Temperature 97.4 F L 98.0 F Pulse Rate 94 H Pulse Rate [ 105 H Apical] Respiratory 20 20 19 Rate Blood Pressure 142/88 129/72 O2 Sat by Pulse 95 99 Oximetry 05/12/20 11:29 Temperature 98.2 F Pulse Rate 87 Pulse Rate [ Apical] Respiratory 20 Rate Blood Pressure 137/96 O2 Sat by Pulse 99 Oximetry - Labs CBC & Chem 7: 05/01/20 07:57 05/01/20 07:57 HEART Score - HEART Score Troponin: Troponin T < 0.010 ng/mL (0.00-0.029) 11/22/19 23:27
[2020-05-12] MEDS: LORazepam 1 MG TAB PO SCH (21:21)
[2020-05-12] MEDS: ENOXAPARIN 40 MG/0.4 ML INJ SUB-Q SCH (21:21)
[2020-05-13] MEDS: levETIRAcetam 500 MG/5 ML ORAL LIQD PO SCH ×2 (09:19→22:27)
[2020-05-13] MEDS: FOLIC ACID 1 MG TAB PO SCH (09:19)
[2020-05-13] MEDS: NICOTINE 21 MG/24 HR PATCH TD SCH (09:19)
[2020-05-13] MEDS: SERTRALINE 50 MG TAB PO SCH (09:19)
[2020-05-13] MEDS: LANSOPRAZOLE 30 MG SOLUTAB FEEDTUBE SCH (09:19)
[2020-05-13] MEDS: hydrOXYzine PAMOATE 25 MG CAP PO SCH ×2 (09:20→22:27)
[2020-05-13] MEDS: MIRTAZAPINE 30 MG TAB PO SCH (09:20)
--- NOTE | 2020-05-13 09:57 | Progress Note ---
Assessment and Plan Assessment and plan: 54-year-old female with a past medical history of Hypertension, Depression, Tobacco use Disorder, Alcohol use Disorder as confirmed by Daughter and pt's mother presents to the hospital status post cardiac arrest at home. EMS found pt in [facility]. They were unable to intubate patient with a ET tube because she was clenching down therefore Joe airway placed. Per the ED physician who evaluated pt, Patient presented with a pulse, intermittent respirations, and bagging support via Joe airway with O2 sat of 100%. Accu-Chek of 71 obtained by EMS. She was intubated in the ER and called for admission. Following admission patient was diagnosed with anoxic brain injury, sepsis with MRSA bacteremia and MSSA pneumonia, alcoholic liver disease. Family member initially wished for full code then changed to DNR, patient treated with IV antibiotics for sepsis, status post trach and PEG on 12/13/19. Weaned off from the vent and put on T- piece. Patient is uninsured, waiting for placement, guarded prognosis. 03/07: Returning to service no acute changes are noted. Continue current management while awaiting placement. Intermittent labs. Base of neck also around tracheostomy tube preventing downgrading. Continue appropriate wound care. 03/08: Plan of care unchanged continues on aerosol trach collar 28% of oxygen. Continue wound care management placement still pending status decision. 03/09: Continue current treatment plan. Continue aspiration precaution 03/10: Continue current management, Restraints as patient still pulling, awaiting placement 03/11: Continue supportive care, intermittent suctioning and pulmonary toilet. awaiting placement. 03/12: Continue supportive care, Give a bolus of fluids due to Hypercalcemia, Monitor Hyperkalemia with labs in am, No arrhythmia. Patient vomiting, concern for aspiration, Chest xray ordered and no active disease noted. Keep HOB >45% 03/13: No evidence of aspiration on xray. Continue supportive care. 03/14: Continue supportive care. Capping trials to start. Discussed with patients nursing and case management to continue daily PT by the Rehab team. 03/15: Discussed again with staff to start capping trial. 03/16: Do not see any indication the capping trial has started will discuss with respiratory therapist. Continue restraints. Still awaiting family decision patient has had some remarkable improvement considering the fact that she was able to stay around night without restraints. We will continue daily trial of this method. Discussed plan with nursing staff 03/17: Continue current care. Currently continue restraints. Continue current management. Continue physical therapy daily. 03/18: Capping trial successful and will possibly get decannulated today. Continue placement. 03/19: Now decannulated and doing well. Begin discharge planning. 03/20: Stable, no new complaints. 03/21: No new complaints. Continue supportive 03/22: No new complaints, still with some confusion, and agitation requiring restraints. Will require daily PT/OT and continue to work with Case management for placement 03/23: continue current management, daily PT/OT. stoma care. No new seizure, slow but gradual improvement noted daily 03/24: Mr. Amaya is a 55-year-old female who presented to the hospital was admitted post cardiac arrest at home she has remarkably done well been extubated and decannulated with stoma healing. She still does experience some intermittent delirious process and as a result is on restraints. I have discussed with nursing staff to see if they can provide a sitter for her and continue daily PT as this will aid in reintroducing her to the community. Case management is working on placement for her. Will check labs in a.m. 04/29: Returning to services, please see other notes. Patient stable and continues to improve. STILL WITH ALTERED MENTAL STATUS, SHE STILL REQUIRES RESTRAINTS, CASE MANAGEMENT WORKING ON PLACEMENT 04/30: Clinically stable continue to monitor still with altered sensorium still awaiting placement. Will check intermittent labs. 05/02: Patient was seen by neurologist no new information noted no further recommendation recommended. Patient continues to be alert but still confused. Remains on restraints for the same reason. Continue daily restrain break while monitoring for fall. Sclera status remains stable. 05/03: At this time is safe to say that she does have dementia from anoxic brain injury although has periods of lucidness. We will continue current management. Discussed with case management about possible guardianship. As family is not willing to take the patient home. 05/04: Monitor tachycardia worse continue supportive care. 05/05: No clinical change, continues to require Restraints due to resulting Dementia and impulsive movements. Pending placement. 05/13: No clinical change continue current treatment continue restraints with intermittent break while awaiting placement, patient still with delirium due to underlying dementia probably from hypoxic anoxic brain injury. . / Anoxic brain injury: suspected CT head: No acute abnormality. EEG ordered showed Generalized slowing. No seizures or epileptiform activity. -Patient now opening her eyes, can speak and able to follow command - as needed haldol for agitation /Acute Respiratory failure - due to MSSA PNA -s/p intubation, s/p trach and PEG on 12/12 with mechanical ventilation, s/p T- piece, now on RA - CTA was done and negative for PE, - Echo quality is poor, showed diastolic dysfunction /Anemia, microcytic - Status post 3 units PRBC transfusion, H&H low stable /Acute metabolic encephalopathy/toxic encephalopathy due to the above - cont supportive care /Hyperammonemia - likely from liver disease related to EtOH abuse - Patient had elevated ammonia level and treated with lactulose /Metabolic Acidosis -Alcohol ketoacidosis vs hypoprofusion -Continue to monitor /ELevated LFTs, stable now - due to ischemic hepatitis. /Leucocytosis with sepsis - Source MRSA bacteremia and MSSA pneumonia. UA showed pyuria. RUQ US showed no ascites. - Repeat TTE negative for vegetation. Completed 7 days of Ceftriaxone on 11/29/2019. -Treated with Abx vancomycin 1 gm IV q 12 hour total 2 week till 12/30/2019 /MSSA pneumonia: Status post vancomycin till 12/30/2019 /ALcohol USe Disorder - given ongoing Alcohol use almost daily, s/p IV Thiamine - monitor /Severe hypokalemia -Repleted /Seizure disorder: treat with Keppra /H. Influenzae, tracheobronchitis, treated with abx /Moderate to severe fecal impaction - added stool softner DNR CODE STATUS Disposition: prognosis guarded. Family okay for DNR, PT recommended subacute rehab, discharge pending on placement. negative for COVID 19. Patient remains pleasantly confused and incoherent. History Interval history: Patient seen and examined, resting comfortable. No new complaints. Hospitalist Physical - Physical exam Narrative exam: General appearance: Present: Appears older than stated age, lying down, still on restraints - EENT Eyes: no scleral icterus, no conjunctival injection, pupil not reactive ENT: clear oral mucosa, dentition normal, no oropharyngeal erythema Ears: bilateral: normal - Neck Neck: stoma clena and dry - Respiratory Respiratory effort: other dressing over the stoma Respiratory: bilateral: rales - Cardiovascular Rhythm: Mildly tachycardic Heart Sounds: Present: S1 & S2. Absent: gallop, rub Extremities: pulses intact, No edema, normal color - Gastrointestinal General gastrointestinal: Present: soft, non-tender, non-distended, normal bowel sounds - Integumentary Integumentary: clear, warm, dry - Musculoskeletal Musculoskeletal: No joint swelling or tenderness - Neurologic Neurologic: other (2+ reflexes throughout). respond to commend answers questions appropriately today - Psychiatric Psychiatric: co-operative - Constitutional Vitals: Temp Pulse Resp BP Pulse Ox 98.0 F 81 20 121/47 96 05/13/20 07:35 05/13/20 04:43 05/13/20 07:35 05/13/20 07:35 05/13/20 04:43 General appearance: Present: no acute distress HEART Score - HEART Score Troponin: Troponin T < 0.010 ng/mL (0.00-0.029) 11/22/19 23:27 Results - Labs CBC & Chem 7: 05/01/20 07:57 05/01/20 07:57 Labs: Laboratory Last Values WBC 6.8 K/mm3 (4.5-11.0) 05/01/20 07:57 RBC 3.90 M/mm3 (3.65-5.03) 05/01/20 07:57 Hgb 11.4 gm/dl (10.1-14.3) 05/01/20 07:57 Hct 34.9 % (30.3-42.9) 05/01/20 07:57 MCV 90 fl (79-97) 05/01/20 07:57 MCH 29 pg (28-32) 05/01/20 07:57 MCHC 33 % (30-34) 05/01/20 07:57 RDW 14.5 % (13.2-15.2) 05/01/20 07:57 Plt Count 498 K/mm3 (140-440) H 05/01/20 07:57 Lymph % (Auto) 25.9 % (13.4-35.0) 04/16/20 09:02 [place] % (Auto) 7.4 % (0.0-7.3) H 04/16/20 09:02 Eos % (Auto) 0.9 % (0.0-4.3) 04/16/20 09:02 Baso % (Auto) 0.8 % (0.0-1.8) 04/16/20 09:02 Lymph # 1.7 K/mm3 (1.2-5.4) 04/16/20 09:02 [place] # 0.5 K/mm3 (0.0-0.8) 04/16/20 09:02 Eos # 0.1 K/mm3 (0.0-0.4) 04/16/20 09:02 Baso # 0.1 K/mm3 (0.0-0.1) 04/16/20 09:02 Add Manual Diff Complete 12/25/19 03:47 Total Counted 200 12/25/19 03:47 Seg Neutrophils % 65.0 % (40.0-70.0) 04/16/20 09:02 Seg Neuts % (Manual) 97.5 % (40.0-70.0) H 12/25/19 03:47 Band Neutrophils % 0 % 12/25/19 03:47 Lymphocytes % (Manual) 1.0 % (13.4-35.0) L 12/25/19 03:47 Reactive Lymphs % (Man) 0 % 12/25/19 03:47 Monocytes % (Manual) 1.5 % (0.0-7.3) 12/25/19 03:47 Eosinophils % (Manual) 0 % (0.0-4.3) 12/25/19 03:47 Basophils % (Manual) 0 % (0.0-1.8) 12/25/19 03:47 Metamyelocytes % 0 % 12/25/19 03:47 Myelocytes % 0 % 12/25/19 03:47 Promyelocytes % 0 % 12/25/19 03:47 Blast Cells % 0 % 12/25/19 03:47 Nucleated RBC % Not Reportable 12/25/19 03:47 Seg Neutrophils # 4.4 K/mm3 (1.8-7.7) 04/16/20 09:02 Seg Neutrophils # Man 35.3 K/mm3 (1.8-7.7) H 12/25/19 03:47 Band Neutrophils # 0.0 K/mm3 12/25/19 03:47 Lymphocytes # (Manual) 0.4 K/mm3 (1.2-5.4) L 12/25/19 03:47 Abs React Lymphs (Man) 0.0 K/mm3 12/25/19 03:47 Monocytes # (Manual) 0.5 K/mm3 (0.0-0.8) 12/25/19 03:47 Eosinophils # (Manual) 0.0 K/mm3 (0.0-0.4) 12/25/19 03:47 Basophils # (Manual) 0.0 K/mm3 (0.0-0.1) 12/25/19 03:47 Metamyelocytes # 0.0 K/mm3 12/25/19 03:47 Myelocytes # 0.0 K/mm3 12/25/19 03:47 Promyelocytes # 0.0 K/mm3 12/25/19 03:47 Blast Cells # 0.0 K/mm3 12/25/19 03:47 Pathologist Review 12/13/19 07:48 WBC Morphology Not Reportable 12/25/19 03:47 Hypersegmented Neuts Not Reportable 12/25/19 03:47 Hyposegmented Neuts Not Reportable 12/25/19 03:47 Hypogranular Neuts Not Reportable 12/25/19 03:47 Smudge Cells Not Reportable 12/25/19 03:47 Toxic Granulation Not Reportable 12/25/19 03:47 Toxic Vacuolation Not Reportable 12/25/19 03:47 Dohle Bodies Not Reportable 12/25/19 03:47 Pelger-Huet Anomaly Not Reportable 12/25/19 03:47 Dominique Rods Not Reportable 12/25/19 03:47 Platelet Estimate Consistent w auto 12/25/19 03:47 Clumped Platelets Not Reportable 12/25/19 03:47 Plt Clumps, EDTA Not Reportable 12/25/19 03:47 Large Platelets Not Reportable 12/25/19 03:47 Giant Platelets Not Reportable 12/25/19 03:47 Platelet Satelliting Not Reportable 12/25/19 03:47 Plt Morphology Comment Not Reportable 12/25/19 03:47 RBC Morphology Not Reportable 12/25/19 03:47 Dimorphic RBCs Not Reportable 12/25/19 03:47 Polychromasia Not Reportable 12/25/19 03:47 Hypochromasia Not Reportable 12/25/19 03:47 Poikilocytosis Not Reportable 12/25/19 03:47 Anisocytosis 1+ 12/25/19 03:47 Microcytosis Not Reportable 12/25/19 03:47 Macrocytosis Not Reportable 12/25/19 03:47 Spherocytes Not Reportable 12/25/19 03:47 Pappenheimer Bodies Not Reportable 12/25/19 03:47 Sickle Cells Not Reportable 12/25/19 03:47 Target Cells Not Reportable 12/25/19 03:47 Tear Drop Cells Not Reportable 12/25/19 03:47 Ovalocytes Not Reportable 12/25/19 03:47 Helmet Cells Not Reportable 12/25/19 03:47 Frias-Dodson Bodies Not Reportable 12/25/19 03:47 [place] Rings Not Reportable 12/25/19 03:47 [place] Cells Not Reportable 12/25/19 03:47 Bite Cells Not Reportable 12/25/19 03:47 Crenated Cell Not Reportable 12/25/19 03:47 Elliptocytes Not Reportable 12/25/19 03:47 Acanthocytes (Spur) Not Reportable 12/25/19 03:47 Rouleaux Not Reportable 12/25/19 03:47 Hemoglobin C Crystals Not Reportable 12/25/19 03:47 Schistocytes Not Reportable 12/25/19 03:47 Malaria parasites Not Reportable 12/25/19 03:47 Gregg Bodies Not Reportable 12/25/19 03:47 Hem Pathologist Commnt No 12/25/19 03:47 PT 17.0 Sec. (12.2-14.9) H 11/23/19 03:47 INR 1.36 (0.87-1.13) H 11/23/19 03:47 APTT 128.2 Sec. (24.2-36.6) H* 11/23/19 03:47 Heparin Anti-Xa Level 0.31 U.I./ml (0.3-0.7) 11/23/19 09:03 ABG pH 7.433 pH Units (7.350-7.450) 03/08/20 13:25 ABG pCO2 40.2 mm Hg 03/08/20 13:25 ABG pO2 71.1 mm Hg (80.0-90.0) L 03/08/20 13:25 ABG HCO3 26.2 mmol/L (20.0-26.0) H 03/08/20 13:25 ABG O2 Saturation 97.0 % (95.0-99.0) 03/08/20 13:25 ABG O2 Content 11.0 (0.0-44) 03/08/20 13:25 ABG Base Excess 1.8 mmol/L (-2.0-3.0) 03/08/20 13:25 ABG Hemoglobin 8.2 gm/dl (12.0-16.0) L 03/08/20 13:25 ABG Carboxyhemoglobin 1.7 % (0.0-5.0) 03/08/20 13:25 ABG Methemoglobin 0.5 % (0.0-1.5) 03/08/20 13:25 Oxyhemoglobin 94.8 % (95.0-99.0) L 03/08/20 13:25 FiO2 21 % 03/08/20 13:25 Sodium 140 mmol/L (137-145) 05/01/20 07:57 Potassium 4.6 mmol/L (3.6-5.0) 05/01/20 07:57 Chloride 101.7 mmol/L (98-107) 05/01/20 07:57 Carbon Dioxide 27 mmol/L (22-30) 05/01/20 07:57 Anion Gap 16 mmol/L 05/01/20 07:57 BUN 21 mg/dL (7-17) H 05/01/20 07:57 Creatinine 0.7 mg/dL (0.6-1.2) 05/01/20 07:57 Estimated GFR > 60 ml/min 05/01/20 07:57 BUN/Creatinine Ratio 30 % 05/01/20 07:57 Glucose 96 mg/dL (65-100) 05/01/20 07:57 POC Glucose 152 (70-105) H 05/09/20 11:36 Lactic Acid 1.80 mmol/L (0.7-2.0) 11/25/19 05:05 Calcium 10.6 mg/dL (8.4-10.2) H 05/01/20 07:57 Ionized Calcium 4.5 mg/dL (4.8-5.6) L 11/23/19 06:32 Phosphorus 4.20 mg/dL (2.5-4.5) D 11/28/19 08:59 Magnesium 1.90 mg/dL (1.7-2.3) 02/28/20 03:40 Total Bilirubin 0.40 mg/dL (0.1-1.2) 12/13/19 07:48 AST 27 units/L (5-40) 12/13/19 07:48 ALT 26 units/L (7-56) 12/13/19 07:48 Alkaline Phosphatase 316 units/L (35-129) H 12/13/19 07:48 Ammonia 42.0 umol/L (25-60) 11/29/19 13:41 Total Creatine Kinase 139 units/L (30-135) H 11/22/19 23:27 CK-MB (CK-2) 8.3 ng/mL (0.0-4.0) H 11/22/19 23:27 CK-MB (CK-2) Rel Index 5.9 (0-4) H 11/22/19 23:27 Troponin T < 0.010 ng/mL (0.00-0.029) 11/22/19 23:27 Total Protein 6.8 g/dL (6.3-8.2) 12/13/19 07:48 Albumin 2.4 g/dL (3.9-5) L 12/13/19 07:48 Albumin/Globulin Ratio 0.5 % 12/13/19 07:48 Lipase 18 units/L (13-60) 11/23/19 00:34 Procalcitonin 1.09 ng/mL (<0.15) 11/23/19 04:53 TSH 1.140 mlU/mL (0.270-4.200) 04/30/20 15:06 Free T4 1.08 ng/dL (0.76-1.46) 02/12/20 07:36 Urine Color Yellow (Yellow) 12/16/19 Unknown Urine Turbidity Slightly-cloudy (Clear) 12/16/19 Unknown Urine pH 5.0 (5.0-7.0) 12/16/19 Unknown Ur Specific [place] 1.018 (1.003-1.030) 12/16/19 Unknown Urine Protein 30 mg/dl mg/dL (Negative) 12/16/19 Unknown Urine Glucose (UA) Neg mg/dL (Negative) 12/16/19 Unknown Urine Ketones Neg mg/dL (Negative) 12/16/19 Unknown Urine Blood Sm (Negative) 12/16/19 Unknown Urine Nitrite Neg (Negative) 12/16/19 Unknown Urine Bilirubin Neg (Negative) 12/16/19 Unknown Urine Urobilinogen < 2.0 mg/dL (<2.0) 12/16/19 Unknown Ur Leukocyte Esterase Neg (Negative) 12/16/19 Unknown Urine WBC (Auto) 6.0 /HPF (0.0-6.0) 12/16/19 Unknown Urine RBC (Auto) 9.0 /HPF (0.0-6.0) 12/16/19 Unknown U Epithel Cells (Auto) < 1.0 /HPF (0-13.0) 12/16/19 Unknown Urine Bacteria (Auto) 2+ /HPF (Negative) 11/22/19 23:17 Hyaline Casts 3 /LPF 12/16/19 Unknown Granular Casts 3 /LPF 12/16/19 Unknown Urine Mucus Few /HPF 12/16/19 Unknown Vancomycin Trough 33.8 ug/mL (5.0-20.0) H 12/21/19 08:56 Random Vancomycin 16.2 ug/mL (0-40.0) 12/24/19 04:31 Salicylates < 0.3 mg/dL (2.8-20.0) L 11/22/19 23:27 Urine Opiates Screen Presumptive negative 11/22/19 23:17 Urine Methadone Screen Presumptive negative 11/22/19 23:17 Acetaminophen < 5.0 ug/mL (10.0-30.0) L 11/22/19 23:27 Ur Barbiturates Screen Presumptive negative 11/22/19 23:17 Ur Phencyclidine Scrn Presumptive negative 11/22/19 23:17 Ur Amphetamines Screen Presumptive negative 11/22/19 23:17 U Benzodiazepines Scrn Presumptive negative 11/22/19 23:17 Urine Cocaine Screen Presumptive negative 11/22/19 23:17 U Marijuana (THC) Screen Presumptive negative 11/22/19 23:17 Drugs of Abuse Note Disclamer 11/22/19 23:17 Plasma/Serum Alcohol 0.08 % (0-0.07) H 11/22/19 23:27 Coronavirus (PCR) Negative (Negative) 02/05/20 07:50 Hepatitis A IgM Ab Non-reactive (NonReactive) 11/23/19 01:19 Hep Bs Antigen Non-reactive (Negative) 11/23/19 01:19 Hep B Core IgM Ab Non-reactive (NonReactive) 11/23/19 01:19 Hepatitis C Antibody Non-reactive (NonReactive) 11/23/19 01:19 Blood Type O POSITIVE 12/21/19 14:54 Antibody Screen Negative 12/21/19 14:54 Crossmatch See Detail 12/21/19 14:54 - Diagnostic Impressions Diagnostic Impressions: Echocardiogram 11/23/19 03:58 Transthoracic Echocardiogram Indication: Cardiac arrest BP: 131/89 HR: 115 Conclusions *The study quality is technically difficult. *Global left ventricular wall motion and contractility are within normal limits. *The estimated ejection fraction is 55-60%. *Abnormal left ventricular diastolic filling is observed, consistent with impaired relaxation. *There is no pericardial effusion. Findings Procedure Info: The study quality is technically difficult. The study was technically limited due to the patient's inability to lay in the left lateral decubitus position. Left Ventricle: The left ventricular chamber size is normal. There is no left ventricular hypertrophy. Global left ventricular wall motion and contractility are within normal limits. Global left ventricular systolic function is normal. The estimated ejection fraction is 55-60%. Abnormal left ventricular diastolic filling is observed, consistent with impaired relaxation. Left Atrium: The left atrial chamber size is normal. Aortic Valve: The aortic valve leaflets are mildly thickened. Mitral Valve: The mitral valve leaflets are mildly thickened. There is no evidence of mitral regurgitation. Tricuspid Valve: The tricuspid valve leaflets are normal. There is trace tricuspid regurgitation. The right ventricular systolic pressure is calculated at 33 mmHg. Pulmonic Valve: The pulmonic valve appears normal. Pericardium: The pericardium appears normal. There is no pericardial effusion. Aorta: The aorta appears normal. Venous: The inferior vena cava appears normal in size. Measurements Chambers 2D Name Value Normal Range IVSd (2D) 0.94 cm (0.6 - 1.1) LVPWd (2D) 0.81 cm (0.6 - 1.1) LVIDd (2D) 3.6 cm (3.7 - 5.6) LVIDs (2D) 2.27 cm (2 - 3.8) LV FS (2D) 36.93 % - EF Teichholz (2D) 67.76 % - Ao root diameter (2D) 3.03 cm (2 - 3.7) Volumes/Mass Name Value Normal Range LA ESV SP 4CH (A/L) 16.89 ml - LA ESV SP 4CH (MOD) 15.52 ml - Diastolic/Systolic Function Name Value Normal Range MV E-wave Vmax 0.55 m/sec - MV deceleration time 200.89 msec - MV A-wave Vmax 0.68 m/sec - MV E:A ratio 0.82 ratio - Aortic Valve Name Value Normal Range AV Vmax 1.1 m/sec - AV VTI 15.9 cm - AV peak gradient 4.86 mmHg - AV mean gradient 2.59 mmHg - LVOT diameter 2 cm - LVOT Vmax 1.03 m/sec - LVOT VTI 15.87 cm - LVOT peak gradient 4.24 mmHg - LVOT mean gradient 2.41 mmHg - SV LVOT 49.77 ml - JOSÉ MIGUEL (continuity Vmax) 2.93 cm2 - JOSÉ MIGUEL (continuity VTI) 3.13 cm2 - Tricuspid Valve Name Value Normal Range TR Vmax 2.74 m/sec - TR peak gradient 303 mmHg - RAP 3 mmHg - RVSP 33 mmHg - IVC diameter 1.77 cm (1.2 - 2.3) Pulmonic Valve/Qp:Qs Name Value Normal Range PV Vmax 0.77 m/sec - PV peak gradient 2.4 mmHg - PV acceleration time 114.18 msec - Echocardiogram Limited Views 12/17/19 14:53 Transthoracic Echocardiogram Indication: R/O Vegetations BP: 144/83 HR: 133 Conclusions *Global left ventricular systolic function is mildly decreased. *The estimated ejection fraction is 45-50%. *A trivial pericardial effusion is visualized. Findings Left Ventricle: The left ventricular chamber size is normal. Global left ventricular systolic function is mildly decreased. The estimated ejection fraction is 45-50%. Left Atrium: The left atrial chamber size is normal. Right Ventricle: The right ventricular cavity size is normal. Right Atrium: The right atrial cavity size is normal. Aortic Valve: The aortic valve is not well visualized. There is no evidence of aortic regurgitation. Mitral Valve: The mitral valve leaflets are mildly thickened. There is trace of mitral regurgitation. Tricuspid Valve: The tricuspid valve leaflets are mildly thickened. There is trace tricuspid regurgitation. The right ventricular systolic pressure is calculated at 29 mmHg. Pulmonic Valve: The pulmonic valve is not well visualized. There is no evidence of pulmonic regurgitation. Pericardium: A trivial pericardial effusion is visualized. Aorta: There is no dilatation of the ascending aorta. There is no dilatation of the aortic root. Venous: The inferior vena cava appears normal in size. There is a greater than 50% respiratory change in the inferior vena cava dimension. Measurements Chambers 2D Name Value Normal Range IVSd (2D) 0.83 cm (0.6 - 1.1) LVPWd (2D) 0.98 cm (0.6 - 1.1) LVIDd (2D) 3.71 cm (3.7 - 5.6) LVIDs (2D) 2.93 cm (2 - 3.8) LV FS (2D) 21.12 % - EF Teichholz (2D) 43.71 % - Ao root diameter (2D) 3.02 cm (2 - 3.7) Volumes/Mass Name Value Normal Range LA ESV SP 4CH (A/L) 36.8 ml - LA ESV SP 2CH (A/L) 45.89 ml - LA ESV BP (A/L) 42.35 ml - LA ESV BP (A/L) index 26.63 ml/m2 - LA ESV SP 4CH (MOD) 34.42 ml - LA ESV SP 2CH (MOD) 44.21 ml - LA ESV BP (MOD) 39.82 ml - LA ESV BP (MOD) index 25.05 ml/m2 - Aortic Valve Name Value Normal Range LVOT diameter 1.63 cm - Tricuspid Valve Name Value Normal Range TR Vmax 2.56 m/sec - TR peak gradient 26 mmHg - RAP 3 mmHg - RVSP 29 mmHg - IVC diameter 1.83 cm (1.2 - 2.3) Del[place] Cruz/IV: Voiding Method Incontinent IV Catheter Type [Forearm] Peripheral IV IV Catheter Type [Left Forearm INT / Saline Lock ] IV Catheter Type [Right INT / Saline Lock Antecubital] IV Catheter Type [Right Hand] INT / Saline Lock IV Catheter Type [Right Wrist] Peripheral IV IV Catheter Type [Left Wrist] Peripheral IV IV Catheter Type [Left Peripheral IV Antecubital] IV Catheter Type [Right INT / Saline Lock Forearm] IV Catheter Type [Left Hand] INT / Saline Lock Active Medications - Current Medications Current Medications: Generic Name Dose Route Start Last Admin Trade Name Freq PRN Reason Stop Dose Admin Albuterol 2.5 mg 03/25/20 19:25 04/07/20 08:59 Proventil IH 2.5 mg Q4HRT PRN Administration Shortness Of Breath Lipase/Protease/Amylase 1 each 11/23/19 11:[address] 10,500 Unit FEEDTUBE PRN PRN Use w/ sod bicarb for FT Enoxaparin Sodium 40 mg 03/07/20 22:00 05/12/20 21:21 Enoxaparin SUB-Q 40 mg QDAY@2200 LUCHO Administration Folic Acid 1 mg 04/27/20 10:00 05/13/20 09:19 Folvite PO 1 mg QDAY LUCHO Administration Guaifenesin 10 ml 04/28/20 05:11 05/12/20 21:21 Guaifenesin Dm Syrup PO 10 ml Q6H PRN Administration Cough Hydroxyzine Pamoate 25 mg 12/06/19 10:00 05/13/20 09:20 Vistaril PO 25 mg BID LUCHO Administration Lansoprazole 30 mg 11/27/19 10:00 05/13/20 09:19 Prevacid Solutab FEEDTUBE 30 mg QDAY LUCHO Administration Levetiracetam 500 mg 11/29/19 10:00 05/13/20 09:19 Keppra PO 500 mg BID LUCHO Administration Lorazepam 1 mg 05/08/20 22:00 05/12/20 21:21 Ativan PO 1 mg QHS LUCHO Administration Mirtazapine 30 mg 12/06/19 10:00 05/13/20 09:20 Remeron PO 30 mg DAILY LUCHO Administration Nicotine 21 mg 02/16/20 13:00 05/13/20 09:19 Habitrol TD 21 mg QDAY LUHCO Administration Scopolamine 1 each 02/08/20 15:00 05/11/20 10:39 Transderm-Scop TD 1 each Q3D LUCHO Administration Sertraline HCl 25 mg 01/01/20 10:00 05/13/20 09:19 Zoloft PO 25 mg QDAY LUCHO Administration Simple Syrup 15 ml 11/23/19 11:50 Simple Syrup FEEDTUBE PRN PRN Hypoglycemia BG<70 Simple Syrup 30 ml 11/23/19 11:50 Simple Syrup FEEDTUBE PRN PRN Hypoglycemia Sodium Bicarbonate 325 mg 11/23/19 11:50 04/30/20 12:27 Sodium Bicarbonate FEEDTUBE 325 mg PRN PRN Administration For Clogged Feeding Tube Nutrition/Malnutrition Assess - Dietary Evaluation Nutrition/Malnutrition Findings: Nutrition Notes Start: 11/23/19 11:29 Freq: Status: Active Protocol: Document 04/23/20 14:33 EVELIA (Rec: 04/23/20 14:35 EVELIA [id number] NSERVICES1) Nutrition Notes Initial or Follow up Reassessment Other Pertinent Diagnosis s/p Cardiac arrest, acute metabolic encephalopathy Current Diet Mech soft with chopped meats Labs/Tests Reviewed Pertinent Medications Reviewed Height 5 ft 6 in Weight 43.5 kg [place] Body Weight (kg) 59.09 BMI 15.5 Subjective/Other Information Pt has consumed 79% of meals since last assessment. Percent of energy/protein needs met: 100% energy 100% pro Burn Absent Trauma Absent Current % PO Good (75-100%) #2 Nutrition Diagnosis Malnutrition Diagnosis Progress(for reassessment Continues documentation) Is patient on ventilator? No Is Patient Ambulatory and/or Out of Bed No REE-([facility]-confined to bed) 1260.864 Kcal/Kg value to use for calculation 35 Approximate Energy Requirements Using 1523 kcal/Kg Calculation Used for Recommendations Kcal/kg Additional Notes Pro needs 1.2-1.5g/k-65g/ day Fluid needs 1ml/kcal Nutrition Intervention Goal #1 PO intake of meals plus ONS to meet 100% energy and pro needs Goal #2 Wt maintenance and/or gain Revisit per MD consult or patient Sign Off request:
[2020-05-13] MEDS: ENOXAPARIN 40 MG/0.4 ML INJ SUB-Q SCH (22:27)
[2020-05-13] MEDS: LORazepam 1 MG TAB PO SCH (22:27)
[2020-05-14] MEDS: MIRTAZAPINE 30 MG TAB PO SCH (09:46)
[2020-05-14] MEDS: NICOTINE 21 MG/24 HR PATCH TD SCH (09:46)
[2020-05-14] MEDS: SERTRALINE 50 MG TAB PO SCH (09:47)
[2020-05-14] MEDS: LANSOPRAZOLE 30 MG SOLUTAB FEEDTUBE SCH (09:47)
[2020-05-14] MEDS: SCOPOLAMINE TRANSDERMAL PATCH 72 HR TD SCH (09:47)
[2020-05-14] MEDS: hydrOXYzine PAMOATE 25 MG CAP PO SCH ×2 (09:47→22:36)
[2020-05-14] MEDS: levETIRAcetam 500 MG/5 ML ORAL LIQD PO SCH ×2 (09:47→22:35)
[2020-05-14] MEDS: FOLIC ACID 1 MG TAB PO SCH (09:48)
--- NOTE | 2020-05-14 12:09 | Progress Note ---
Assessment and Plan Assessment and plan: 54-year-old female with a past medical history of Hypertension, Depression, Tobacco use Disorder, Alcohol use Disorder as confirmed by Daughter and pt's mother presents to the hospital status post cardiac arrest at home. EMS found pt in [facility]. They were unable to intubate patient with a ET tube because she was clenching down therefore Joe airway placed. Per the ED physician who evaluated pt, Patient presented with a pulse, intermittent respirations, and bagging support via Joe airway with O2 sat of 100%. Accu-Chek of 71 obtained by EMS. She was intubated in the ER and called for admission. Following admission patient was diagnosed with anoxic brain injury, sepsis with MRSA bacteremia and MSSA pneumonia, alcoholic liver disease. Family member initially wished for full code then changed to DNR, patient treated with IV antibiotics for sepsis, status post trach and PEG on 12/13/19. Weaned off from the vent and put on T- piece. Patient is uninsured, waiting for placement, guarded prognosis. 03/07: Returning to service no acute changes are noted. Continue current management while awaiting placement. Intermittent labs. Base of neck also around tracheostomy tube preventing downgrading. Continue appropriate wound care. 03/08: Plan of care unchanged continues on aerosol trach collar 28% of oxygen. Continue wound care management placement still pending status decision. 03/09: Continue current treatment plan. Continue aspiration precaution 03/10: Continue current management, Restraints as patient still pulling, awaiting placement 03/11: Continue supportive care, intermittent suctioning and pulmonary toilet. awaiting placement. 03/12: Continue supportive care, Give a bolus of fluids due to Hypercalcemia, Monitor Hyperkalemia with labs in am, No arrhythmia. Patient vomiting, concern for aspiration, Chest xray ordered and no active disease noted. Keep HOB >45% 03/13: No evidence of aspiration on xray. Continue supportive care. 03/14: Continue supportive care. Capping trials to start. Discussed with patients nursing and case management to continue daily PT by the Rehab team. 03/15: Discussed again with staff to start capping trial. 03/16: Do not see any indication the capping trial has started will discuss with respiratory therapist. Continue restraints. Still awaiting family decision patient has had some remarkable improvement considering the fact that she was able to stay around night without restraints. We will continue daily trial of this method. Discussed plan with nursing staff 03/17: Continue current care. Currently continue restraints. Continue current management. Continue physical therapy daily. 03/18: Capping trial successful and will possibly get decannulated today. Continue placement. 03/19: Now decannulated and doing well. Begin discharge planning. 03/20: Stable, no new complaints. 03/21: No new complaints. Continue supportive 03/22: No new complaints, still with some confusion, and agitation requiring restraints. Will require daily PT/OT and continue to work with Case management for placement 03/23: continue current management, daily PT/OT. stoma care. No new seizure, slow but gradual improvement noted daily 03/24: Mr. Amaya is a 55-year-old female who presented to the hospital was admitted post cardiac arrest at home she has remarkably done well been extubated and decannulated with stoma healing. She still does experience some intermittent delirious process and as a result is on restraints. I have discussed with nursing staff to see if they can provide a sitter for her and continue daily PT as this will aid in reintroducing her to the community. Case management is working on placement for her. Will check labs in a.m. 04/29: Returning to services, please see other notes. Patient stable and continues to improve. STILL WITH ALTERED MENTAL STATUS, SHE STILL REQUIRES RESTRAINTS, CASE MANAGEMENT WORKING ON PLACEMENT 04/30: Clinically stable continue to monitor still with altered sensorium still awaiting placement. Will check intermittent labs. 05/02: Patient was seen by neurologist no new information noted no further recommendation recommended. Patient continues to be alert but still confused. Remains on restraints for the same reason. Continue daily restrain break while monitoring for fall. Sclera status remains stable. 05/03: At this time is safe to say that she does have dementia from anoxic brain injury although has periods of lucidness. We will continue current management. Discussed with case management about possible guardianship. As family is not willing to take the patient home. 05/04: Monitor tachycardia worse continue supportive care. 05/05: No clinical change, continues to require Restraints due to resulting Dementia and impulsive movements. Pending placement. 05/13: No clinical change continue current treatment continue restraints with intermittent break while awaiting placement, patient still with delirium due to underlying dementia probably from hypoxic anoxic brain injury. 05/14: Continue current care. Restraints renewed. Agree with physical therapy. . / Anoxic brain injury: suspected CT head: No acute abnormality. EEG ordered showed Generalized slowing. No seizures or epileptiform activity. -Patient now opening her eyes, can speak and able to follow command - as needed haldol for agitation /Acute Respiratory failure - due to MSSA PNA -s/p intubation, s/p trach and PEG on 12/12 with mechanical ventilation, s/p T- piece, now on RA - CTA was done and negative for PE, - Echo quality is poor, showed diastolic dysfunction /Anemia, microcytic - Status post 3 units PRBC transfusion, H&H low stable /Acute metabolic encephalopathy/toxic encephalopathy due to the above - cont supportive care /Hyperammonemia - likely from liver disease related to EtOH abuse - Patient had elevated ammonia level and treated with lactulose /Metabolic Acidosis -Alcohol ketoacidosis vs hypoprofusion -Continue to monitor /ELevated LFTs, stable now - due to ischemic hepatitis. /Leucocytosis with sepsis - Source MRSA bacteremia and MSSA pneumonia. UA showed pyuria. RUQ US showed no ascites. - Repeat TTE negative for vegetation. Completed 7 days of Ceftriaxone on 11/29/2019. -Treated with Abx vancomycin 1 gm IV q 12 hour total 2 week till 12/30/2019 /MSSA pneumonia: Status post vancomycin till 12/30/2019 /ALcohol USe Disorder - given ongoing Alcohol use almost daily, s/p IV Thiamine - monitor /Severe hypokalemia -Repleted /Seizure disorder: treat with Keppra /H. Influenzae, tracheobronchitis, treated with abx /Moderate to severe fecal impaction - added stool softner DNR CODE STATUS Disposition: prognosis guarded. Family okay for DNR, PT recommended subacute rehab, discharge pending on placement. negative for COVID 19. Patient remains pleasantly confused and incoherent. History Interval history: Patient seen and examined, resting comfortable. No new complaints. Physical therapy working with the patient today. Hospitalist Physical - Physical exam Narrative exam: General appearance: Present: Appears older than stated age, lying down, still on restraints - EENT Eyes: no scleral icterus, no conjunctival injection, pupil not reactive ENT: clear oral mucosa, dentition normal, no oropharyngeal erythema Ears: bilateral: normal - Neck Neck: stoma clena and dry - Respiratory Respiratory effort: other dressing over the stoma Respiratory: bilateral: rales - Cardiovascular Rhythm: Mildly tachycardic Heart Sounds: Present: S1 & S2. Absent: gallop, rub Extremities: pulses intact, No edema, normal color - Gastrointestinal General gastrointestinal: Present: soft, non-tender, non-distended, normal bowel sounds - Integumentary Integumentary: clear, warm, dry - Musculoskeletal Musculoskeletal: No joint swelling or tenderness - Neurologic Neurologic: other (2+ reflexes throughout). respond to commend answers questions appropriately today - Psychiatric Psychiatric: co-operative - Constitutional Vitals: Temp Pulse Resp BP Pulse Ox 98.0 F 89 19 140/97 100 05/14/20 11:55 05/14/20 11:37 05/14/20 08:43 05/14/20 11:37 05/14/20 11:37 General appearance: Present: no acute distress HEART Score - HEART Score Troponin: Troponin T < 0.010 ng/mL (0.00-0.029) 11/22/19 23:27 Results - Labs CBC & Chem 7: 05/01/20 07:57 05/01/20 07:57 Labs: Laboratory Last Values WBC 6.8 K/mm3 (4.5-11.0) 05/01/20 07:57 RBC 3.90 M/mm3 (3.65-5.03) 05/01/20 07:57 Hgb 11.4 gm/dl (10.1-14.3) 05/01/20 07:57 Hct 34.9 % (30.3-42.9) 05/01/20 07:57 MCV 90 fl (79-97) 05/01/20 07:57 MCH 29 pg (28-32) 05/01/20 07:57 MCHC 33 % (30-34) 05/01/20 07:57 RDW 14.5 % (13.2-15.2) 05/01/20 07:57 Plt Count 498 K/mm3 (140-440) H 05/01/20 07:57 Lymph % (Auto) 25.9 % (13.4-35.0) 04/16/20 09:02 [place] % (Auto) 7.4 % (0.0-7.3) H 04/16/20 09:02 Eos % (Auto) 0.9 % (0.0-4.3) 04/16/20 09:02 Baso % (Auto) 0.8 % (0.0-1.8) 04/16/20 09:02 Lymph # 1.7 K/mm3 (1.2-5.4) 04/16/20 09:02 [place] # 0.5 K/mm3 (0.0-0.8) 04/16/20 09:02 Eos # 0.1 K/mm3 (0.0-0.4) 04/16/20 09:02 Baso # 0.1 K/mm3 (0.0-0.1) 04/16/20 09:02 Add Manual Diff Complete 12/25/19 03:47 Total Counted 200 12/25/19 03:47 Seg Neutrophils % 65.0 % (40.0-70.0) 04/16/20 09:02 Seg Neuts % (Manual) 97.5 % (40.0-70.0) H 12/25/19 03:47 Band Neutrophils % 0 % 12/25/19 03:47 Lymphocytes % (Manual) 1.0 % (13.4-35.0) L 12/25/19 03:47 Reactive Lymphs % (Man) 0 % 12/25/19 03:47 Monocytes % (Manual) 1.5 % (0.0-7.3) 12/25/19 03:47 Eosinophils % (Manual) 0 % (0.0-4.3) 12/25/19 03:47 Basophils % (Manual) 0 % (0.0-1.8) 12/25/19 03:47 Metamyelocytes % 0 % 12/25/19 03:47 Myelocytes % 0 % 12/25/19 03:47 Promyelocytes % 0 % 12/25/19 03:47 Blast Cells % 0 % 12/25/19 03:47 Nucleated RBC % Not Reportable 12/25/19 03:47 Seg Neutrophils # 4.4 K/mm3 (1.8-7.7) 04/16/20 09:02 Seg Neutrophils # Man 35.3 K/mm3 (1.8-7.7) H 12/25/19 03:47 Band Neutrophils # 0.0 K/mm3 12/25/19 03:47 Lymphocytes # (Manual) 0.4 K/mm3 (1.2-5.4) L 12/25/19 03:47 Abs React Lymphs (Man) 0.0 K/mm3 12/25/19 03:47 Monocytes # (Manual) 0.5 K/mm3 (0.0-0.8) 12/25/19 03:47 Eosinophils # (Manual) 0.0 K/mm3 (0.0-0.4) 12/25/19 03:47 Basophils # (Manual) 0.0 K/mm3 (0.0-0.1) 12/25/19 03:47 Metamyelocytes # 0.0 K/mm3 12/25/19 03:47 Myelocytes # 0.0 K/mm3 12/25/19 03:47 Promyelocytes # 0.0 K/mm3 12/25/19 03:47 Blast Cells # 0.0 K/mm3 12/25/19 03:47 Pathologist Review 12/13/19 07:48 WBC Morphology Not Reportable 12/25/19 03:47 Hypersegmented Neuts Not Reportable 12/25/19 03:47 Hyposegmented Neuts Not Reportable 12/25/19 03:47 Hypogranular Neuts Not Reportable 12/25/19 03:47 Smudge Cells Not Reportable 12/25/19 03:47 Toxic Granulation Not Reportable 12/25/19 03:47 Toxic Vacuolation Not Reportable 12/25/19 03:47 Dohle Bodies Not Reportable 12/25/19 03:47 Pelger-Huet Anomaly Not Reportable 12/25/19 03:47 Dominique Rods Not Reportable 12/25/19 03:47 Platelet Estimate Consistent w auto 12/25/19 03:47 Clumped Platelets Not Reportable 12/25/19 03:47 Plt Clumps, EDTA Not Reportable 12/25/19 03:47 Large Platelets Not Reportable 12/25/19 03:47 Giant Platelets Not Reportable 12/25/19 03:47 Platelet Satelliting Not Reportable 12/25/19 03:47 Plt Morphology Comment Not Reportable 12/25/19 03:47 RBC Morphology Not Reportable 12/25/19 03:47 Dimorphic RBCs Not Reportable 12/25/19 03:47 Polychromasia Not Reportable 12/25/19 03:47 Hypochromasia Not Reportable 12/25/19 03:47 Poikilocytosis Not Reportable 12/25/19 03:47 Anisocytosis 1+ 12/25/19 03:47 Microcytosis Not Reportable 12/25/19 03:47 Macrocytosis Not Reportable 12/25/19 03:47 Spherocytes Not Reportable 12/25/19 03:47 Pappenheimer Bodies Not Reportable 12/25/19 03:47 Sickle Cells Not Reportable 12/25/19 03:47 Target Cells Not Reportable 12/25/19 03:47 Tear Drop Cells Not Reportable 12/25/19 03:47 Ovalocytes Not Reportable 12/25/19 03:47 Helmet Cells Not Reportable 12/25/19 03:47 Frias-Branford Bodies Not Reportable 12/25/19 03:47 Parmele Rings Not Reportable 12/25/19 03:47 Jamshid Cells Not Reportable 12/25/19 03:47 Bite Cells Not Reportable 12/25/19 03:47 Crenated Cell Not Reportable 12/25/19 03:47 Elliptocytes Not Reportable 12/25/19 03:47 Acanthocytes (Spur) Not Reportable 12/25/19 03:47 Rouleaux Not Reportable 12/25/19 03:47 Hemoglobin C Crystals Not Reportable 12/25/19 03:47 Schistocytes Not Reportable 12/25/19 03:47 Malaria parasites Not Reportable 12/25/19 03:47 Gregg Bodies Not Reportable 12/25/19 03:47 Hem Pathologist Commnt No 12/25/19 03:47 PT 17.0 Sec. (12.2-14.9) H 11/23/19 03:47 INR 1.36 (0.87-1.13) H 11/23/19 03:47 APTT 128.2 Sec. (24.2-36.6) H* 11/23/19 03:47 Heparin Anti-Xa Level 0.31 U.I./ml (0.3-0.7) 11/23/19 09:03 ABG pH 7.433 pH Units (7.350-7.450) 03/08/20 13:25 ABG pCO2 40.2 mm Hg 03/08/20 13:25 ABG pO2 71.1 mm Hg (80.0-90.0) L 03/08/20 13:25 ABG HCO3 26.2 mmol/L (20.0-26.0) H 03/08/20 13:25 ABG O2 Saturation 97.0 % (95.0-99.0) 03/08/20 13:25 ABG O2 Content 11.0 (0.0-44) 03/08/20 13:25 ABG Base Excess 1.8 mmol/L (-2.0-3.0) 03/08/20 13:25 ABG Hemoglobin 8.2 gm/dl (12.0-16.0) L 03/08/20 13:25 ABG Carboxyhemoglobin 1.7 % (0.0-5.0) 03/08/20 13:25 ABG Methemoglobin 0.5 % (0.0-1.5) 03/08/20 13:25 Oxyhemoglobin 94.8 % (95.0-99.0) L 03/08/20 13:25 FiO2 21 % 03/08/20 13:25 Sodium 140 mmol/L (137-145) 05/01/20 07:57 Potassium 4.6 mmol/L (3.6-5.0) 05/01/20 07:57 Chloride 101.7 mmol/L (98-107) 05/01/20 07:57 Carbon Dioxide 27 mmol/L (22-30) 05/01/20 07:57 Anion Gap 16 mmol/L 05/01/20 07:57 BUN 21 mg/dL (7-17) H 05/01/20 07:57 Creatinine 0.7 mg/dL (0.6-1.2) 05/01/20 07:57 Estimated GFR > 60 ml/min 05/01/20 07:57 BUN/Creatinine Ratio 30 % 05/01/20 07:57 Glucose 96 mg/dL (65-100) 05/01/20 07:57 POC Glucose 152 (70-105) H 05/09/20 11:36 Lactic Acid 1.80 mmol/L (0.7-2.0) 11/25/19 05:05 Calcium 10.6 mg/dL (8.4-10.2) H 05/01/20 07:57 Ionized Calcium 4.5 mg/dL (4.8-5.6) L 11/23/19 06:32 Phosphorus 4.20 mg/dL (2.5-4.5) D 11/28/19 08:59 Magnesium 1.90 mg/dL (1.7-2.3) 02/28/20 03:40 Total Bilirubin 0.40 mg/dL (0.1-1.2) 12/13/19 07:48 AST 27 units/L (5-40) 12/13/19 07:48 ALT 26 units/L (7-56) 12/13/19 07:48 Alkaline Phosphatase 316 units/L (35-129) H 12/13/19 07:48 Ammonia 42.0 umol/L (25-60) 11/29/19 13:41 Total Creatine Kinase 139 units/L (30-135) H 11/22/19 23:27 CK-MB (CK-2) 8.3 ng/mL (0.0-4.0) H 11/22/19 23:27 CK-MB (CK-2) Rel Index 5.9 (0-4) H 11/22/19 23:27 Troponin T < 0.010 ng/mL (0.00-0.029) 11/22/19 23:27 Total Protein 6.8 g/dL (6.3-8.2) 12/13/19 07:48 Albumin 2.4 g/dL (3.9-5) L 12/13/19 07:48 Albumin/Globulin Ratio 0.5 % 12/13/19 07:48 Lipase 18 units/L (13-60) 11/23/19 00:34 Procalcitonin 1.09 ng/mL (<0.15) 11/23/19 04:53 TSH 1.140 mlU/mL (0.270-4.200) 04/30/20 15:06 Free T4 1.08 ng/dL (0.76-1.46) 02/12/20 07:36 Urine Color Yellow (Yellow) 12/16/19 Unknown Urine Turbidity Slightly-cloudy (Clear) 12/16/19 Unknown Urine pH 5.0 (5.0-7.0) 12/16/19 Unknown Ur Specific [place] 1.018 (1.003-1.030) 12/16/19 Unknown Urine Protein 30 mg/dl mg/dL (Negative) 12/16/19 Unknown Urine Glucose (UA) Neg mg/dL (Negative) 12/16/19 Unknown Urine Ketones Neg mg/dL (Negative) 12/16/19 Unknown Urine Blood Sm (Negative) 12/16/19 Unknown Urine Nitrite Neg (Negative) 12/16/19 Unknown Urine Bilirubin Neg (Negative) 12/16/19 Unknown Urine Urobilinogen < 2.0 mg/dL (<2.0) 12/16/19 Unknown Ur Leukocyte Esterase Neg (Negative) 12/16/19 Unknown Urine WBC (Auto) 6.0 /HPF (0.0-6.0) 12/16/19 Unknown Urine RBC (Auto) 9.0 /HPF (0.0-6.0) 12/16/19 Unknown U Epithel Cells (Auto) < 1.0 /HPF (0-13.0) 12/16/19 Unknown Urine Bacteria (Auto) 2+ /HPF (Negative) 11/22/19 23:17 Hyaline Casts 3 /LPF 12/16/19 Unknown Granular Casts 3 /LPF 12/16/19 Unknown Urine Mucus Few /HPF 12/16/19 Unknown Vancomycin Trough 33.8 ug/mL (5.0-20.0) H 12/21/19 08:56 Random Vancomycin 16.2 ug/mL (0-40.0) 12/24/19 04:31 Salicylates < 0.3 mg/dL (2.8-20.0) L 11/22/19 23:27 Urine Opiates Screen Presumptive negative 11/22/19 23:17 Urine Methadone Screen Presumptive negative 11/22/19 23:17 Acetaminophen < 5.0 ug/mL (10.0-30.0) L 11/22/19 23:27 Ur Barbiturates Screen Presumptive negative 11/22/19 23:17 Ur Phencyclidine Scrn Presumptive negative 11/22/19 23:17 Ur Amphetamines Screen Presumptive negative 11/22/19 23:17 U Benzodiazepines Scrn Presumptive negative 11/22/19 23:17 Urine Cocaine Screen Presumptive negative 11/22/19 23:17 U Marijuana (THC) Screen Presumptive negative 11/22/19 23:17 Drugs of Abuse Note Disclamer 11/22/19 23:17 Plasma/Serum Alcohol 0.08 % (0-0.07) H 11/22/19 23:27 Coronavirus (PCR) Negative (Negative) 02/05/20 07:50 Hepatitis A IgM Ab Non-reactive (NonReactive) 11/23/19 01:19 Hep Bs Antigen Non-reactive (Negative) 11/23/19 01:19 Hep B Core IgM Ab Non-reactive (NonReactive) 11/23/19 01:19 Hepatitis C Antibody Non-reactive (NonReactive) 11/23/19 01:19 Blood Type O POSITIVE 12/21/19 14:54 Antibody Screen Negative 12/21/19 14:54 Crossmatch See Detail 12/21/19 14:54 - Diagnostic Impressions Diagnostic Impressions: Echocardiogram 11/23/19 03:58 Transthoracic Echocardiogram Indication: Cardiac arrest BP: 131/89 HR: 115 Conclusions *The study quality is technically difficult. *Global left ventricular wall motion and contractility are within normal limits. *The estimated ejection fraction is 55-60%. *Abnormal left ventricular diastolic filling is observed, consistent with impaired relaxation. *There is no pericardial effusion. Findings Procedure Info: The study quality is technically difficult. The study was technically limited due to the patient's inability to lay in the left lateral decubitus position. Left Ventricle: The left ventricular chamber size is normal. There is no left ventricular hypertrophy. Global left ventricular wall motion and contractility are within normal limits. Global left ventricular systolic function is normal. The estimated ejection fraction is 55-60%. Abnormal left ventricular diastolic filling is observed, consistent with impaired relaxation. Left Atrium: The left atrial chamber size is normal. Aortic Valve: The aortic valve leaflets are mildly thickened. Mitral Valve: The mitral valve leaflets are mildly thickened. There is no evidence of mitral regurgitation. Tricuspid Valve: The tricuspid valve leaflets are normal. There is trace tricuspid regurgitation. The right ventricular systolic pressure is calculated at 33 mmHg. Pulmonic Valve: The pulmonic valve appears normal. Pericardium: The pericardium appears normal. There is no pericardial effusion. Aorta: The aorta appears normal. Venous: The inferior vena cava appears normal in size. Measurements Chambers 2D Name Value Normal Range IVSd (2D) 0.94 cm (0.6 - 1.1) LVPWd (2D) 0.81 cm (0.6 - 1.1) LVIDd (2D) 3.6 cm (3.7 - 5.6) LVIDs (2D) 2.27 cm (2 - 3.8) LV FS (2D) 36.93 % - EF Teichholz (2D) 67.76 % - Ao root diameter (2D) 3.03 cm (2 - 3.7) Volumes/Mass Name Value Normal Range LA ESV SP 4CH (A/L) 16.89 ml - LA ESV SP 4CH (MOD) 15.52 ml - Diastolic/Systolic Function Name Value Normal Range MV E-wave Vmax 0.55 m/sec - MV deceleration time 200.89 msec - MV A-wave Vmax 0.68 m/sec - MV E:A ratio 0.82 ratio - Aortic Valve Name Value Normal Range AV Vmax 1.1 m/sec - AV VTI 15.9 cm - AV peak gradient 4.86 mmHg - AV mean gradient 2.59 mmHg - LVOT diameter 2 cm - LVOT Vmax 1.03 m/sec - LVOT VTI 15.87 cm - LVOT peak gradient 4.24 mmHg - LVOT mean gradient 2.41 mmHg - SV LVOT 49.77 ml - JOSÉ MIGUEL (continuity Vmax) 2.93 cm2 - JOSÉ MIGUEL (continuity VTI) 3.13 cm2 - Tricuspid Valve Name Value Normal Range TR Vmax 2.74 m/sec - TR peak gradient 303 mmHg - RAP 3 mmHg - RVSP 33 mmHg - IVC diameter 1.77 cm (1.2 - 2.3) Pulmonic Valve/Qp:Qs Name Value Normal Range PV Vmax 0.77 m/sec - PV peak gradient 2.4 mmHg - PV acceleration time 114.18 msec - Echocardiogram Limited Views 12/17/19 14:53 Transthoracic Echocardiogram Indication: R/O Vegetations BP: 144/83 HR: 133 Conclusions *Global left ventricular systolic function is mildly decreased. *The estimated ejection fraction is 45-50%. *A trivial pericardial effusion is visualized. Findings Left Ventricle: The left ventricular chamber size is normal. Global left ventricular systolic function is mildly decreased. The estimated ejection fraction is 45-50%. Left Atrium: The left atrial chamber size is normal. Right Ventricle: The right ventricular cavity size is normal. Right Atrium: The right atrial cavity size is normal. Aortic Valve: The aortic valve is not well visualized. There is no evidence of aortic regurgitation. Mitral Valve: The mitral valve leaflets are mildly thickened. There is trace of mitral regurgitation. Tricuspid Valve: The tricuspid valve leaflets are mildly thickened. There is trace tricuspid regurgitation. The right ventricular systolic pressure is calculated at 29 mmHg. Pulmonic Valve: The pulmonic valve is not well visualized. There is no evidence of pulmonic regurgitation. Pericardium: A trivial pericardial effusion is visualized. Aorta: There is no dilatation of the ascending aorta. There is no dilatation of the aortic root. Venous: The inferior vena cava appears normal in size. There is a greater than 50% respiratory change in the inferior vena cava dimension. Measurements Chambers 2D Name Value Normal Range IVSd (2D) 0.83 cm (0.6 - 1.1) LVPWd (2D) 0.98 cm (0.6 - 1.1) LVIDd (2D) 3.71 cm (3.7 - 5.6) LVIDs (2D) 2.93 cm (2 - 3.8) LV FS (2D) 21.12 % - EF Teichholz (2D) 43.71 % - Ao root diameter (2D) 3.02 cm (2 - 3.7) Volumes/Mass Name Value Normal Range LA ESV SP 4CH (A/L) 36.8 ml - LA ESV SP 2CH (A/L) 45.89 ml - LA ESV BP (A/L) 42.35 ml - LA ESV BP (A/L) index 26.63 ml/m2 - LA ESV SP 4CH (MOD) 34.42 ml - LA ESV SP 2CH (MOD) 44.21 ml - LA ESV BP (MOD) 39.82 ml - LA ESV BP (MOD) index 25.05 ml/m2 - Aortic Valve Name Value Normal Range LVOT diameter 1.63 cm - Tricuspid Valve Name Value Normal Range TR Vmax 2.56 m/sec - TR peak gradient 26 mmHg - RAP 3 mmHg - RVSP 29 mmHg - IVC diameter 1.83 cm (1.2 - 2.3) Dela Cruz/IV: Voiding Method Incontinent IV Catheter Type [Forearm] Peripheral IV IV Catheter Type [Left Forearm INT / Saline Lock ] IV Catheter Type [Right INT / Saline Lock Antecubital] IV Catheter Type [Right Hand] INT / Saline Lock IV Catheter Type [Right Wrist] Peripheral IV IV Catheter Type [Left Wrist] Peripheral IV IV Catheter Type [Left Peripheral IV Antecubital] IV Catheter Type [Right INT / Saline Lock Forearm] IV Catheter Type [Left Hand] INT / Saline Lock Active Medications - Current Medications Current Medications: Generic Name Dose Route Start Last Admin Trade Name Freq PRN Reason Stop Dose Admin Albuterol 2.5 mg 03/25/20 19:25 04/07/20 08:59 Proventil IH 2.5 mg Q4HRT PRN Administration Shortness Of Breath Lipase/Protease/Amylase 1 each 11/23/19 11:[address] 10,500 Unit FEEDTUBE PRN PRN Use w/ sod bicarb for FT Enoxaparin Sodium 40 mg 03/07/20 22:00 05/13/20 22:27 Enoxaparin SUB-Q 40 mg QDAY@2200 LUCHO Administration Folic Acid 1 mg 04/27/20 10:00 05/14/20 09:48 Folvite PO 1 mg QDAY LUCHO Administration Guaifenesin 10 ml 04/28/20 05:11 05/12/20 21:21 Guaifenesin Dm Syrup PO 10 ml Q6H PRN Administration Cough Hydroxyzine Pamoate 25 mg 12/06/19 10:00 05/14/20 09:47 Vistaril PO 25 mg BID LUCHO Administration Lansoprazole 30 mg 11/27/19 10:00 05/14/20 09:47 Prevacid Solutab FEEDTUBE 30 mg QDAY LUCHO Administration Levetiracetam 500 mg 11/29/19 10:00 05/14/20 09:47 Keppra PO 500 mg BID LUCHO Administration Lorazepam 1 mg 05/08/20 22:00 05/13/20 22:27 Ativan PO 1 mg QHS LUCHO Administration Mirtazapine 30 mg 12/06/19 10:00 05/14/20 09:46 Remeron PO 30 mg DAILY LUCHO Administration Nicotine 21 mg 02/16/20 13:00 05/14/20 09:46 Habitrol TD 21 mg QDAY LUCHO Administration Scopolamine 1 each 02/08/20 15:00 05/14/20 09:47 Transderm-Scop TD 1 each Q3D LUCHO Administration Sertraline HCl 25 mg 01/01/20 10:00 05/14/20 09:47 Zoloft PO 25 mg QDAY LUCHO Administration Simple Syrup 15 ml 11/23/19 11:50 Simple Syrup FEEDTUBE PRN PRN Hypoglycemia BG<70 Simple Syrup 30 ml 11/23/19 11:50 Simple Syrup FEEDTUBE PRN PRN Hypoglycemia Sodium Bicarbonate 325 mg 11/23/19 11:50 04/30/20 12:27 Sodium Bicarbonate FEEDTUBE 325 mg PRN PRN Administration For Clogged Feeding Tube Nutrition/Malnutrition Assess - Dietary Evaluation Nutrition/Malnutrition Findings: Nutrition Notes Start: 11/23/19 11:29 Freq: Status: Active Protocol: Document 04/23/20 14:33 EEVLIA (Rec: 04/23/20 14:35 EVELIA [email or web address]) Nutrition Notes Initial or Follow up Reassessment Other Pertinent Diagnosis s/p Cardiac arrest, acute metabolic encephalopathy Current Diet Mech soft with chopped meats Labs/Tests Reviewed Pertinent Medications Reviewed Height 5 ft 6 in Weight 43.5 kg [place] Body Weight (kg) 59.09 BMI 15.5 Subjective/Other Information Pt has consumed 79% of meals since last assessment. Percent of energy/protein needs met: 100% energy 100% pro Burn Absent Trauma Absent Current % PO Good (75-100%) #2 Nutrition Diagnosis Malnutrition Diagnosis Progress(for reassessment Continues documentation) Is patient on ventilator? No Is Patient Ambulatory and/or Out of Bed No REE-([place]-confined to bed) 1260.864 Kcal/Kg value to use for calculation 35 Approximate Energy Requirements Using 1523 kcal/Kg Calculation Used for Recommendations Kcal/kg Additional Notes Pro needs 1.2-1.5g/k-65g/ day Fluid needs 1ml/kcal Nutrition Intervention Goal #1 PO intake of meals plus ONS to meet 100% energy and pro needs Goal #2 Wt maintenance and/or gain Revisit per MD consult or patient Sign Off request:
[2020-05-14] MEDS: guaiFENesin DM 200/20 MG ORAL LIQD 10 ML PO PRN (22:35)
[2020-05-14] MEDS: ENOXAPARIN 40 MG/0.4 ML INJ SUB-Q SCH (22:35)
[2020-05-14] MEDS: LORazepam 1 MG TAB PO SCH (22:36)
[2020-05-15] MEDS ORDERED: cloNIDine 0.2 MG TAB PO ONE (06:00)
[2020-05-15] MEDS: NICOTINE 21 MG/24 HR PATCH TD SCH (09:38)
[2020-05-15] MEDS: hydrOXYzine PAMOATE 25 MG CAP PO SCH ×2 (09:38→21:05)
[2020-05-15] MEDS: LANSOPRAZOLE 30 MG SOLUTAB FEEDTUBE SCH (09:38)
[2020-05-15] MEDS: FOLIC ACID 1 MG TAB PO SCH (09:38)
[2020-05-15] MEDS: levETIRAcetam 500 MG/5 ML ORAL LIQD PO SCH ×2 (09:38→21:04)
[2020-05-15] MEDS: SERTRALINE 50 MG TAB PO SCH (09:38)
--- NOTE | 2020-05-15 09:47 | Progress Note ---
Assessment and Plan Assessment and plan: 54-year-old female with a past medical history of Hypertension, Depression, Tobacco use Disorder, Alcohol use Disorder as confirmed by Daughter and pt's mother presents to the hospital status post cardiac arrest at home. EMS found pt in [facility]. They were unable to intubate patient with a ET tube because she was clenching down therefore Joe airway placed. Per the ED physician who evaluated pt, Patient presented with a pulse, intermittent respirations, and bagging support via Joe airway with O2 sat of 100%. Accu-Chek of 71 obtained by EMS. She was intubated in the ER and called for admission. Following admission patient was diagnosed with anoxic brain injury, sepsis with MRSA bacteremia and MSSA pneumonia, alcoholic liver disease. Family member initially wished for full code then changed to DNR, patient treated with IV antibiotics for sepsis, status post trach and PEG on 12/13/19. Weaned off from the vent and put on T- piece. Patient is uninsured, waiting for placement, guarded prognosis. 03/07: Returning to service no acute changes are noted. Continue current management while awaiting placement. Intermittent labs. Base of neck also around tracheostomy tube preventing downgrading. Continue appropriate wound care. 03/08: Plan of care unchanged continues on aerosol trach collar 28% of oxygen. Continue wound care management placement still pending status decision. 03/09: Continue current treatment plan. Continue aspiration precaution 03/10: Continue current management, Restraints as patient still pulling, awaiting placement 03/11: Continue supportive care, intermittent suctioning and pulmonary toilet. awaiting placement. 03/12: Continue supportive care, Give a bolus of fluids due to Hypercalcemia, Monitor Hyperkalemia with labs in am, No arrhythmia. Patient vomiting, concern for aspiration, Chest xray ordered and no active disease noted. Keep HOB >45% 03/13: No evidence of aspiration on xray. Continue supportive care. 03/14: Continue supportive care. Capping trials to start. Discussed with patients nursing and case management to continue daily PT by the Rehab team. 03/15: Discussed again with staff to start capping trial. 03/16: Do not see any indication the capping trial has started will discuss with respiratory therapist. Continue restraints. Still awaiting family decision patient has had some remarkable improvement considering the fact that she was able to stay around night without restraints. We will continue daily trial of this method. Discussed plan with nursing staff 03/17: Continue current care. Currently continue restraints. Continue current management. Continue physical therapy daily. 03/18: Capping trial successful and will possibly get decannulated today. Continue placement. 03/19: Now decannulated and doing well. Begin discharge planning. 03/20: Stable, no new complaints. 03/21: No new complaints. Continue supportive 03/22: No new complaints, still with some confusion, and agitation requiring restraints. Will require daily PT/OT and continue to work with Case management for placement 03/23: continue current management, daily PT/OT. stoma care. No new seizure, slow but gradual improvement noted daily 03/24: Mr. Amaya is a 55-year-old female who presented to the hospital was admitted post cardiac arrest at home she has remarkably done well been extubated and decannulated with stoma healing. She still does experience some intermittent delirious process and as a result is on restraints. I have discussed with nursing staff to see if they can provide a sitter for her and continue daily PT as this will aid in reintroducing her to the community. Case management is working on placement for her. Will check labs in a.m. 04/29: Returning to services, please see other notes. Patient stable and continues to improve. STILL WITH ALTERED MENTAL STATUS, SHE STILL REQUIRES RESTRAINTS, CASE MANAGEMENT WORKING ON PLACEMENT 04/30: Clinically stable continue to monitor still with altered sensorium still awaiting placement. Will check intermittent labs. 05/02: Patient was seen by neurologist no new information noted no further recommendation recommended. Patient continues to be alert but still confused. Remains on restraints for the same reason. Continue daily restrain break while monitoring for fall. Sclera status remains stable. 05/03: At this time is safe to say that she does have dementia from anoxic brain injury although has periods of lucidness. We will continue current management. Discussed with case management about possible guardianship. As family is not willing to take the patient home. 05/04: Monitor tachycardia worse continue supportive care. 05/05: No clinical change, continues to require Restraints due to resulting Dementia and impulsive movements. Pending placement. 05/13: No clinical change continue current treatment continue restraints with intermittent break while awaiting placement, patient still with delirium due to underlying dementia probably from hypoxic anoxic brain injury. 05/14: Continue current care. Restraints renewed. Agree with physical therapy. 05/15: Continue current management. Awaiting case management input. . / Anoxic brain injury: suspected CT head: No acute abnormality. EEG ordered showed Generalized slowing. No seizures or epileptiform activity. -Patient now opening her eyes, can speak and able to follow command - as needed haldol for agitation /Acute Respiratory failure - due to MSSA PNA -s/p intubation, s/p trach and PEG on 12/12 with mechanical ventilation, s/p T- piece, now on RA - CTA was done and negative for PE, - Echo quality is poor, showed diastolic dysfunction /Anemia, microcytic - Status post 3 units PRBC transfusion, H&H low stable /Acute metabolic encephalopathy/toxic encephalopathy due to the above - cont supportive care /Hyperammonemia - likely from liver disease related to EtOH abuse - Patient had elevated ammonia level and treated with lactulose /Metabolic Acidosis -Alcohol ketoacidosis vs hypoprofusion -Continue to monitor /ELevated LFTs, stable now - due to ischemic hepatitis. /Leucocytosis with sepsis - Source MRSA bacteremia and MSSA pneumonia. UA showed pyuria. RUQ US showed no ascites. - Repeat TTE negative for vegetation. Completed 7 days of Ceftriaxone on 11/29/2019. -Treated with Abx vancomycin 1 gm IV q 12 hour total 2 week till 12/30/2019 /MSSA pneumonia: Status post vancomycin till 12/30/2019 /ALcohol USe Disorder - given ongoing Alcohol use almost daily, s/p IV Thiamine - monitor /Severe hypokalemia -Repleted /Seizure disorder: treat with Keppra /H. Influenzae, tracheobronchitis, treated with abx /Moderate to severe fecal impaction - added stool softner DNR CODE STATUS Disposition: prognosis guarded. Family okay for DNR, PT recommended subacute rehab, discharge pending on placement. negative for COVID 19. Patient remains pleasantly confused and incoherent. History Interval history: Patient seen and examined, resting comfortable. No new complaints. Hospitalist Physical - Physical exam Narrative exam: General appearance: Present: Appears older than stated age, lying down, still on restraints - EENT Eyes: no scleral icterus, no conjunctival injection, pupil not reactive ENT: clear oral mucosa, dentition normal, no oropharyngeal erythema Ears: bilateral: normal - Neck Neck: stoma clena and dry - Respiratory Respiratory effort: other dressing over the stoma Respiratory: bilateral: rales - Cardiovascular Rhythm: Mildly tachycardic Heart Sounds: Present: S1 & S2. Absent: gallop, rub Extremities: pulses intact, No edema, normal color - Gastrointestinal General gastrointestinal: Present: soft, non-tender, non-distended, normal bowel sounds - Integumentary Integumentary: clear, warm, dry - Musculoskeletal Musculoskeletal: No joint swelling or tenderness - Neurologic Neurologic: other (2+ reflexes throughout). respond to commend answers questions appropriately today - Psychiatric Psychiatric: co-operative - Constitutional Vitals: Temp Pulse Resp BP Pulse Ox 98.6 F 96 H 16 172/86 100 05/15/20 08:29 05/15/20 08:29 05/15/20 08:29 05/15/20 08:05/15/20 04:07 General appearance: Present: no acute distress HEART Score - HEART Score Troponin: Troponin T < 0.010 ng/mL (0.00-0.029) 11/22/19 23:27 Results - Labs CBC & Chem 7: 05/01/20 07:57 05/01/20 07:57 Labs: Laboratory Last Values WBC 6.8 K/mm3 (4.5-11.0) 05/01/20 07:57 RBC 3.90 M/mm3 (3.65-5.03) 05/01/20 07:57 Hgb 11.4 gm/dl (10.1-14.3) 05/01/20 07:57 Hct 34.9 % (30.3-42.9) 05/01/20 07:57 MCV 90 fl (79-97) 05/01/20 07:57 MCH 29 pg (28-32) 05/01/20 07:57 MCHC 33 % (30-34) 05/01/20 07:57 RDW 14.5 % (13.2-15.2) 05/01/20 07:57 Plt Count 498 K/mm3 (140-440) H 05/01/20 07:57 Lymph % (Auto) 25.9 % (13.4-35.0) 04/16/20 09:02 Bailey % (Auto) 7.4 % (0.0-7.3) H 04/16/20 09:02 Eos % (Auto) 0.9 % (0.0-4.3) 04/16/20 09:02 Baso % (Auto) 0.8 % (0.0-1.8) 04/16/20 09:02 Lymph # 1.7 K/mm3 (1.2-5.4) 04/16/20 09:02 Bailey # 0.5 K/mm3 (0.0-0.8) 04/16/20 09:02 Eos # 0.1 K/mm3 (0.0-0.4) 04/16/20 09:02 Baso # 0.1 K/mm3 (0.0-0.1) 04/16/20 09:02 Add Manual Diff Complete 12/25/19 03:47 Total Counted 200 12/25/19 03:47 Seg Neutrophils % 65.0 % (40.0-70.0) 04/16/20 09:02 Seg Neuts % (Manual) 97.5 % (40.0-70.0) H 12/25/19 03:47 Band Neutrophils % 0 % 12/25/19 03:47 Lymphocytes % (Manual) 1.0 % (13.4-35.0) L 12/25/19 03:47 Reactive Lymphs % (Man) 0 % 12/25/19 03:47 Monocytes % (Manual) 1.5 % (0.0-7.3) 12/25/19 03:47 Eosinophils % (Manual) 0 % (0.0-4.3) 12/25/19 03:47 Basophils % (Manual) 0 % (0.0-1.8) 12/25/19 03:47 Metamyelocytes % 0 % 12/25/19 03:47 Myelocytes % 0 % 12/25/19 03:47 Promyelocytes % 0 % 12/25/19 03:47 Blast Cells % 0 % 12/25/19 03:47 Nucleated RBC % Not Reportable 12/25/19 03:47 Seg Neutrophils # 4.4 K/mm3 (1.8-7.7) 04/16/20 09:02 Seg Neutrophils # Man 35.3 K/mm3 (1.8-7.7) H 12/25/19 03:47 Band Neutrophils # 0.0 K/mm3 12/25/19 03:47 Lymphocytes # (Manual) 0.4 K/mm3 (1.2-5.4) L 12/25/19 03:47 Abs React Lymphs (Man) 0.0 K/mm3 12/25/19 03:47 Monocytes # (Manual) 0.5 K/mm3 (0.0-0.8) 12/25/19 03:47 Eosinophils # (Manual) 0.0 K/mm3 (0.0-0.4) 12/25/19 03:47 Basophils # (Manual) 0.0 K/mm3 (0.0-0.1) 12/25/19 03:47 Metamyelocytes # 0.0 K/mm3 12/25/19 03:47 Myelocytes # 0.0 K/mm3 12/25/19 03:47 Promyelocytes # 0.0 K/mm3 12/25/19 03:47 Blast Cells # 0.0 K/mm3 12/25/19 03:47 Pathologist Review 12/13/19 07:48 WBC Morphology Not Reportable 12/25/19 03:47 Hypersegmented Neuts Not Reportable 12/25/19 03:47 Hyposegmented Neuts Not Reportable 12/25/19 03:47 Hypogranular Neuts Not Reportable 12/25/19 03:47 Smudge Cells Not Reportable 12/25/19 03:47 Toxic Granulation Not Reportable 12/25/19 03:47 Toxic Vacuolation Not Reportable 12/25/19 03:47 Dohle Bodies Not Reportable 12/25/19 03:47 Pelger-Huet Anomaly Not Reportable 12/25/19 03:47 Dominique Rods Not Reportable 12/25/19 03:47 Platelet Estimate Consistent w auto 12/25/19 03:47 Clumped Platelets Not Reportable 12/25/19 03:47 Plt Clumps, EDTA Not Reportable 12/25/19 03:47 Large Platelets Not Reportable 12/25/19 03:47 Giant Platelets Not Reportable 12/25/19 03:47 Platelet Satelliting Not Reportable 12/25/19 03:47 Plt Morphology Comment Not Reportable 12/25/19 03:47 RBC Morphology Not Reportable 12/25/19 03:47 Dimorphic RBCs Not Reportable 12/25/19 03:47 Polychromasia Not Reportable 12/25/19 03:47 Hypochromasia Not Reportable 12/25/19 03:47 Poikilocytosis Not Reportable 12/25/19 03:47 Anisocytosis 1+ 12/25/19 03:47 Microcytosis Not Reportable 12/25/19 03:47 Macrocytosis Not Reportable 12/25/19 03:47 Spherocytes Not Reportable 12/25/19 03:47 Pappenheimer Bodies Not Reportable 12/25/19 03:47 Sickle Cells Not Reportable 12/25/19 03:47 Target Cells Not Reportable 12/25/19 03:47 Tear Drop Cells Not Reportable 12/25/19 03:47 Ovalocytes Not Reportable 12/25/19 03:47 Helmet Cells Not Reportable 12/25/19 03:47 [place] Bodies Not Reportable 12/25/19 03:47 [place] Rings Not Reportable 12/25/19 03:47 [place] Cells Not Reportable 12/25/19 03:47 Bite Cells Not Reportable 12/25/19 03:47 Crenated Cell Not Reportable 12/25/19 03:47 Elliptocytes Not Reportable 12/25/19 03:47 Acanthocytes (Spur) Not Reportable 12/25/19 03:47 Rouleaux Not Reportable 12/25/19 03:47 Hemoglobin C Crystals Not Reportable 12/25/19 03:47 Schistocytes Not Reportable 12/25/19 03:47 Malaria parasites Not Reportable 12/25/19 03:47 Gregg Bodies Not Reportable 12/25/19 03:47 Hem Pathologist Commnt No 12/25/19 03:47 PT 17.0 Sec. (12.2-14.9) H 11/23/19 03:47 INR 1.36 (0.87-1.13) H 11/23/19 03:47 APTT 128.2 Sec. (24.2-36.6) H* 11/23/19 03:47 Heparin Anti-Xa Level 0.31 U.I./ml (0.3-0.7) 11/23/19 09:03 ABG pH 7.433 pH Units (7.350-7.450) 03/08/20 13:25 ABG pCO2 40.2 mm Hg 03/08/20 13:25 ABG pO2 71.1 mm Hg (80.0-90.0) L 03/08/20 13:25 ABG HCO3 26.2 mmol/L (20.0-26.0) H 03/08/20 13:25 ABG O2 Saturation 97.0 % (95.0-99.0) 03/08/20 13:25 ABG O2 Content 11.0 (0.0-44) 03/08/20 13:25 ABG Base Excess 1.8 mmol/L (-2.0-3.0) 03/08/20 13:25 ABG Hemoglobin 8.2 gm/dl (12.0-16.0) L 03/08/20 13:25 ABG Carboxyhemoglobin 1.7 % (0.0-5.0) 03/08/20 13:25 ABG Methemoglobin 0.5 % (0.0-1.5) 03/08/20 13:25 Oxyhemoglobin 94.8 % (95.0-99.0) L 03/08/20 13:25 FiO2 21 % 03/08/20 13:25 Sodium 140 mmol/L (137-145) 05/01/20 07:57 Potassium 4.6 mmol/L (3.6-5.0) 05/01/20 07:57 Chloride 101.7 mmol/L (98-107) 05/01/20 07:57 Carbon Dioxide 27 mmol/L (22-30) 05/01/20 07:57 Anion Gap 16 mmol/L 05/01/20 07:57 BUN 21 mg/dL (7-17) H 05/01/20 07:57 Creatinine 0.7 mg/dL (0.6-1.2) 05/01/20 07:57 Estimated GFR > 60 ml/min 05/01/20 07:57 BUN/Creatinine Ratio 30 % 05/01/20 07:57 Glucose 96 mg/dL (65-100) 05/01/20 07:57 POC Glucose 152 (70-105) H 05/09/20 11:36 Lactic Acid 1.80 mmol/L (0.7-2.0) 11/25/19 05:05 Calcium 10.6 mg/dL (8.4-10.2) H 05/01/20 07:57 Ionized Calcium 4.5 mg/dL (4.8-5.6) L 11/23/19 06:32 Phosphorus 4.20 mg/dL (2.5-4.5) D 11/28/19 08:59 Magnesium 1.90 mg/dL (1.7-2.3) 02/28/20 03:40 Total Bilirubin 0.40 mg/dL (0.1-1.2) 12/13/19 07:48 AST 27 units/L (5-40) 12/13/19 07:48 ALT 26 units/L (7-56) 12/13/19 07:48 Alkaline Phosphatase 316 units/L (35-129) H 12/13/19 07:48 Ammonia 42.0 umol/L (25-60) 11/29/19 13:41 Total Creatine Kinase 139 units/L (30-135) H 11/22/19 23:27 CK-MB (CK-2) 8.3 ng/mL (0.0-4.0) H 11/22/19 23:27 CK-MB (CK-2) Rel Index 5.9 (0-4) H 11/22/19 23:27 Troponin T < 0.010 ng/mL (0.00-0.029) 11/22/19 23:27 Total Protein 6.8 g/dL (6.3-8.2) 12/13/19 07:48 Albumin 2.4 g/dL (3.9-5) L 12/13/19 07:48 Albumin/Globulin Ratio 0.5 % 12/13/19 07:48 Lipase 18 units/L (13-60) 11/23/19 00:34 Procalcitonin 1.09 ng/mL (<0.15) 11/23/19 04:53 TSH 1.140 mlU/mL (0.270-4.200) 04/30/20 15:06 Free T4 1.08 ng/dL (0.76-1.46) 02/12/20 07:36 Urine Color Yellow (Yellow) 12/16/19 Unknown Urine Turbidity Slightly-cloudy (Clear) 12/16/19 Unknown Urine pH 5.0 (5.0-7.0) 12/16/19 Unknown Ur Specific [place] 1.018 (1.003-1.030) 12/16/19 Unknown Urine Protein 30 mg/dl mg/dL (Negative) 12/16/19 Unknown Urine Glucose (UA) Neg mg/dL (Negative) 12/16/19 Unknown Urine Ketones Neg mg/dL (Negative) 12/16/19 Unknown Urine Blood Sm (Negative) 12/16/19 Unknown Urine Nitrite Neg (Negative) 12/16/19 Unknown Urine Bilirubin Neg (Negative) 12/16/19 Unknown Urine Urobilinogen < 2.0 mg/dL (<2.0) 12/16/19 Unknown Ur Leukocyte Esterase Neg (Negative) 12/16/19 Unknown Urine WBC (Auto) 6.0 /HPF (0.0-6.0) 12/16/19 Unknown Urine RBC (Auto) 9.0 /HPF (0.0-6.0) 12/16/19 Unknown U Epithel Cells (Auto) < 1.0 /HPF (0-13.0) 12/16/19 Unknown Urine Bacteria (Auto) 2+ /HPF (Negative) 11/22/19 23:17 Hyaline Casts 3 /LPF 12/16/19 Unknown Granular Casts 3 /LPF 12/16/19 Unknown Urine Mucus Few /HPF 12/16/19 Unknown Vancomycin Trough 33.8 ug/mL (5.0-20.0) H 12/21/19 08:56 Random Vancomycin 16.2 ug/mL (0-40.0) 12/24/19 04:31 Salicylates < 0.3 mg/dL (2.8-20.0) L 11/22/19 23:27 Urine Opiates Screen Presumptive negative 11/22/19 23:17 Urine Methadone Screen Presumptive negative 11/22/19 23:17 Acetaminophen < 5.0 ug/mL (10.0-30.0) L 11/22/19 23:27 Ur Barbiturates Screen Presumptive negative 11/22/19 23:17 Ur Phencyclidine Scrn Presumptive negative 11/22/19 23:17 Ur Amphetamines Screen Presumptive negative 11/22/19 23:17 U Benzodiazepines Scrn Presumptive negative 11/22/19 23:17 Urine Cocaine Screen Presumptive negative 11/22/19 23:17 U Marijuana (THC) Screen Presumptive negative 11/22/19 23:17 Drugs of Abuse Note Disclamer 11/22/19 23:17 Plasma/Serum Alcohol 0.08 % (0-0.07) H 11/22/19 23:27 Coronavirus (PCR) Negative (Negative) 02/05/20 07:50 Hepatitis A IgM Ab Non-reactive (NonReactive) 11/23/19 01:19 Hep Bs Antigen Non-reactive (Negative) 11/23/19 01:19 Hep B Core IgM Ab Non-reactive (NonReactive) 11/23/19 01:19 Hepatitis C Antibody Non-reactive (NonReactive) 11/23/19 01:19 Blood Type O POSITIVE 12/21/19 14:54 Antibody Screen Negative 12/21/19 14:54 Crossmatch See Detail 12/21/19 14:54 - Diagnostic Impressions Diagnostic Impressions: Echocardiogram 11/23/19 03:58 Transthoracic Echocardiogram Indication: Cardiac arrest BP: 131/89 HR: 115 Conclusions *The study quality is technically difficult. *Global left ventricular wall motion and contractility are within normal limits. *The estimated ejection fraction is 55-60%. *Abnormal left ventricular diastolic filling is observed, consistent with impaired relaxation. *There is no pericardial effusion. Findings Procedure Info: The study quality is technically difficult. The study was technically limited due to the patient's inability to lay in the left lateral decubitus position. Left Ventricle: The left ventricular chamber size is normal. There is no left ventricular hypertrophy. Global left ventricular wall motion and contractility are within normal limits. Global left ventricular systolic function is normal. The estimated ejection fraction is 55-60%. Abnormal left ventricular diastolic filling is observed, consistent with impaired relaxation. Left Atrium: The left atrial chamber size is normal. Aortic Valve: The aortic valve leaflets are mildly thickened. Mitral Valve: The mitral valve leaflets are mildly thickened. There is no evidence of mitral regurgitation. Tricuspid Valve: The tricuspid valve leaflets are normal. There is trace tricuspid regurgitation. The right ventricular systolic pressure is calculated at 33 mmHg. Pulmonic Valve: The pulmonic valve appears normal. Pericardium: The pericardium appears normal. There is no pericardial effusion. Aorta: The aorta appears normal. Venous: The inferior vena cava appears normal in size. Measurements Chambers 2D Name Value Normal Range IVSd (2D) 0.94 cm (0.6 - 1.1) LVPWd (2D) 0.81 cm (0.6 - 1.1) LVIDd (2D) 3.6 cm (3.7 - 5.6) LVIDs (2D) 2.27 cm (2 - 3.8) LV FS (2D) 36.93 % - EF Teichholz (2D) 67.76 % - Ao root diameter (2D) 3.03 cm (2 - 3.7) Volumes/Mass Name Value Normal Range LA ESV SP 4CH (A/L) 16.89 ml - LA ESV SP 4CH (MOD) 15.52 ml - Diastolic/Systolic Function Name Value Normal Range MV E-wave Vmax 0.55 m/sec - MV deceleration time 200.89 msec - MV A-wave Vmax 0.68 m/sec - MV E:A ratio 0.82 ratio - Aortic Valve Name Value Normal Range AV Vmax 1.1 m/sec - AV VTI 15.9 cm - AV peak gradient 4.86 mmHg - AV mean gradient 2.59 mmHg - LVOT diameter 2 cm - LVOT Vmax 1.03 m/sec - LVOT VTI 15.87 cm - LVOT peak gradient 4.24 mmHg - LVOT mean gradient 2.41 mmHg - SV LVOT 49.77 ml - JOSÉ MIGUEL (continuity Vmax) 2.93 cm2 - JOSÉ MIGUEL (continuity VTI) 3.13 cm2 - Tricuspid Valve Name Value Normal Range TR Vmax 2.74 m/sec - TR peak gradient 303 mmHg - RAP 3 mmHg - RVSP 33 mmHg - IVC diameter 1.77 cm (1.2 - 2.3) Pulmonic Valve/Qp:Qs Name Value Normal Range PV Vmax 0.77 m/sec - PV peak gradient 2.4 mmHg - PV acceleration time 114.18 msec - Echocardiogram Limited Views 12/17/19 14:53 Transthoracic Echocardiogram Indication: R/O Vegetations BP: 144/83 HR: 133 Conclusions *Global left ventricular systolic function is mildly decreased. *The estimated ejection fraction is 45-50%. *A trivial pericardial effusion is visualized. Findings Left Ventricle: The left ventricular chamber size is normal. Global left ventricular systolic function is mildly decreased. The estimated ejection fraction is 45-50%. Left Atrium: The left atrial chamber size is normal. Right Ventricle: The right ventricular cavity size is normal. Right Atrium: The right atrial cavity size is normal. Aortic Valve: The aortic valve is not well visualized. There is no evidence of aortic regurgitation. Mitral Valve: The mitral valve leaflets are mildly thickened. There is trace of mitral regurgitation. Tricuspid Valve: The tricuspid valve leaflets are mildly thickened. There is trace tricuspid regurgitation. The right ventricular systolic pressure is calculated at 29 mmHg. Pulmonic Valve: The pulmonic valve is not well visualized. There is no evidence of pulmonic regurgitation. Pericardium: A trivial pericardial effusion is visualized. Aorta: There is no dilatation of the ascending aorta. There is no dilatation of the aortic root. Venous: The inferior vena cava appears normal in size. There is a greater than 50% respiratory change in the inferior vena cava dimension. Measurements Chambers 2D Name Value Normal Range IVSd (2D) 0.83 cm (0.6 - 1.1) LVPWd (2D) 0.98 cm (0.6 - 1.1) LVIDd (2D) 3.71 cm (3.7 - 5.6) LVIDs (2D) 2.93 cm (2 - 3.8) LV FS (2D) 21.12 % - EF Teichholz (2D) 43.71 % - Ao root diameter (2D) 3.02 cm (2 - 3.7) Volumes/Mass Name Value Normal Range LA ESV SP 4CH (A/L) 36.8 ml - LA ESV SP 2CH (A/L) 45.89 ml - LA ESV BP (A/L) 42.35 ml - LA ESV BP (A/L) index 26.63 ml/m2 - LA ESV SP 4CH (MOD) 34.42 ml - LA ESV SP 2CH (MOD) 44.21 ml - LA ESV BP (MOD) 39.82 ml - LA ESV BP (MOD) index 25.05 ml/m2 - Aortic Valve Name Value Normal Range LVOT diameter 1.63 cm - Tricuspid Valve Name Value Normal Range TR Vmax 2.56 m/sec - TR peak gradient 26 mmHg - RAP 3 mmHg - RVSP 29 mmHg - IVC diameter 1.83 cm (1.2 - 2.3) [place] Cruz/IV: Voiding Method Diaper IV Catheter Type [Forearm] Peripheral IV IV Catheter Type [Left Forearm INT / Saline Lock ] IV Catheter Type [Right INT / Saline Lock Antecubital] IV Catheter Type [Right Hand] INT / Saline Lock IV Catheter Type [Right Wrist] Peripheral IV IV Catheter Type [Left Wrist] Peripheral IV IV Catheter Type [Left Peripheral IV Antecubital] IV Catheter Type [Right INT / Saline Lock Forearm] IV Catheter Type [Left Hand] INT / Saline Lock Active Medications - Current Medications Current Medications: Generic Name Dose Route Start Last Admin Trade Name Freq PRN Reason Stop Dose Admin Albuterol 2.5 mg 03/25/20 19:25 04/07/20 08:59 Proventil IH 2.5 mg Q4HRT PRN Administration Shortness Of Breath Lipase/Protease/Amylase 1 each 11/23/19 11:[address] 10,500 Unit FEEDTUBE PRN PRN Use w/ sod bicarb for FT Enoxaparin Sodium 40 mg 03/07/20 22:00 05/14/20 22:35 Enoxaparin SUB-Q 40 mg QDAY@2200 LUCHO Administration Folic Acid 1 mg 04/27/20 10:00 05/15/20 09:38 Folvite PO 1 mg QDAY LUCHO Administration Guaifenesin 10 ml 04/28/20 05:11 05/14/20 22:35 Guaifenesin Dm Syrup PO 10 ml Q6H PRN Administration Cough Hydroxyzine Pamoate 25 mg 12/06/19 10:00 05/15/20 09:38 Vistaril PO 25 mg BID LUCHO Administration Lansoprazole 30 mg 11/27/19 10:00 05/15/20 09:38 Prevacid Solutab FEEDTUBE 30 mg QDAY LUCHO Administration Levetiracetam 500 mg 11/29/19 10:00 05/15/20 09:38 Keppra PO 500 mg BID LUCHO Administration Lorazepam 1 mg 05/08/20 22:00 05/14/20 22:36 Ativan PO 1 mg QHS LUCHO Administration Mirtazapine 30 mg 12/06/19 10:00 05/14/20 09:46 Remeron PO 30 mg DAILY LUCHO Administration Nicotine 21 mg 02/16/20 13:00 05/15/20 09:38 Habitrol TD 21 mg QDAY LUCHO Administration Scopolamine 1 each 02/08/20 15:00 05/14/20 09:47 Transderm-Scop TD 1 each Q3D LUCHO Administration Sertraline HCl 25 mg 01/01/20 10:00 05/15/20 09:38 Zoloft PO 25 mg QDAY LUCHO Administration Simple Syrup 15 ml 11/23/19 11:50 Simple Syrup FEEDTUBE PRN PRN Hypoglycemia BG<70 Simple Syrup 30 ml 11/23/19 11:50 Simple Syrup FEEDTUBE PRN PRN Hypoglycemia Sodium Bicarbonate 325 mg 11/23/19 11:50 04/30/20 12:27 Sodium Bicarbonate FEEDTUBE 325 mg PRN PRN Administration For Clogged Feeding Tube Nutrition/Malnutrition Assess - Dietary Evaluation Nutrition/Malnutrition Findings: Nutrition Notes Start: 11/23/19 11:29 Freq: Status: Active Protocol: Document 04/23/20 14:33 EVELIA (Rec: 04/23/20 14:35 EVELIA [id number]) Nutrition Notes Initial or Follow up Reassessment Other Pertinent Diagnosis s/p Cardiac arrest, acute metabolic encephalopathy Current Diet Mech soft with chopped meats Labs/Tests Reviewed Pertinent Medications Reviewed Height 5 ft 6 in Weight 43.5 kg [place] Body Weight (kg) 59.09 BMI 15.5 Subjective/Other Information Pt has consumed 79% of meals since last assessment. Percent of energy/protein needs met: 100% energy 100% pro Burn Absent Trauma Absent Current % PO Good (75-100%) #2 Nutrition Diagnosis Malnutrition Diagnosis Progress(for reassessment Continues documentation) Is patient on ventilator? No Is Patient Ambulatory and/or Out of Bed No REE-([facility]-confined to bed) 1260.864 Kcal/Kg value to use for calculation 35 Approximate Energy Requirements Using 1523 kcal/Kg Calculation Used for Recommendations Kcal/kg Additional Notes Pro needs 1.2-1.5g/k-65g/ day Fluid needs 1ml/kcal Nutrition Intervention Goal #1 PO intake of meals plus ONS to meet 100% energy and pro needs Goal #2 Wt maintenance and/or gain Revisit per MD consult or patient Sign Off request:
[2020-05-15] MEDS: MIRTAZAPINE 30 MG TAB PO SCH (15:37)
[2020-05-15] MEDS: guaiFENesin DM 200/20 MG ORAL LIQD 10 ML PO PRN (20:53)
[2020-05-15] MEDS: ENOXAPARIN 40 MG/0.4 ML INJ SUB-Q SCH (21:04)
[2020-05-15] MEDS: LORazepam 1 MG TAB PO SCH (21:04)
[2020-05-16] MEDS: levETIRAcetam 500 MG/5 ML ORAL LIQD PO SCH ×2 (09:09→21:41)
[2020-05-16] MEDS: SERTRALINE 50 MG TAB PO SCH (09:09)
[2020-05-16] MEDS: NICOTINE 21 MG/24 HR PATCH TD SCH (09:09)
[2020-05-16] MEDS: hydrOXYzine PAMOATE 25 MG CAP PO SCH ×2 (09:09→21:41)
[2020-05-16] MEDS: FOLIC ACID 1 MG TAB PO SCH (09:09)
[2020-05-16] MEDS: MIRTAZAPINE 30 MG TAB PO SCH (09:09)
[2020-05-16] MEDS: LANSOPRAZOLE 30 MG SOLUTAB FEEDTUBE SCH (09:09)
--- NOTE | 2020-05-16 11:47 | Discharge Summary ---
Providers - Providers Date of Admission: 11/23/19 01:40 Attending physician: GOPAL DOBBINS MD 11/22/19 23:23 Consult to Dietitian/Nutrition [CONS] Routine Physician Instructions: Reason For Exam: Reason for Consult: Evaluate nutritional intake 11/23/19 02:30 Consult to Physician [CONS] Urgent Comment: Consulting Provider: TENA CORONA Physician Instructions: Reason For Exam: s/p cardiac arrest 11/24/19 13:03 Consult to Physician [CONS] Routine Comment: Consulting Provider: JANICE ADAMS Physician Instructions: Reason For Exam: fevers, sepsis, post cardiac arrest 11/24/19 13:04 Consult to Physician [CONS] Routine Comment: Consulting Provider: MIGNON LIVE Physician Instructions: Reason For Exam: post cardiac arrest, encephalopathy 12/05/19 19:39 Consult to Physician [CONS] Routine Comment: Consulting Provider: SIMONA ARITA Physician Instructions: Reason For Exam: trach and PEG 12/14/19 11:46 Consult to Physician [CONS] Routine Comment: Consulting Provider: JEFFERY STEVENS Physician Instructions: I notified Reason For Exam: re-consult for fevers after trach and PEG 12/18/19 12:12 Consult to Case Management [CONS] Stat Services Needed at Discharge: Other Notified:: spa consultant Additional Physician Instructions: OPAT MRSA bacteremia Infuse vancomycin 1 gm IV q 12 hour total 2 week till 12/30/2019. Keep vancomycin trough 10-20. Labs CBC, creat, CRP, vancomycin trough weekly. Fax labs to [phone] Janice Nicolas MD 01/01/20 13:37 Physical Therapy Evaluation and Treat [CONS] Routine Comment: Reason For Exam: placement 01/14/20 17:43 Consult to Wound/ET Nurse [CONS] Routine Reason For Exam: wound eval 01/15/20 07:45 Consult to Wound/ET Nurse [CONS] Routine Reason For Exam: wound eval of sacrum 01/16/20 13:23 Speech Therapy Eval for Passy-Alena Valve [CONS] Urgent Reason For Exam: trach needing speaking valve Speech Therapy Evaluation and Treat [CONS] Urgent Reason For Exam: trach needing speaking valve 01/26/20 00:49 Consult to Wound/ET Nurse [CONS] Routine Reason For Exam: sacral wound eval 01/27/20 12:18 Consult to Wound/ET Nurse [CONS] Urgent Reason For Exam: wound eval 01/28/20 21:18 Consult to Wound/ET Nurse [CONS] Routine Reason For Exam: wound eval for trach redness and pressure sore 02/09/20 02:15 Consult to Wound/ET Nurse [CONS] Urgent Reason For Exam: for trach dressing groves 02/10/20 10:05 Consult to Wound/ET Nurse [CONS] Urgent Reason For Exam: wound eval 02/13/20 13:19 Consult to Mental Health [CONS] Routine Reason For Exam: Anxiety 03/07/20 09:49 Consult to Wound/ET Nurse [CONS] Urgent Reason For Exam: wound eval under tracheostomy 03/28/20 12:50 Physical Therapy Evaluation and Treat [CONS] Routine Comment: Reason For Exam: eval 03/28/20 12:51 Speech Therapy Evaluation and Treat [CONS] Routine Reason For Exam: eval 04/01/20 14:40 Physical Therapy Evaluation and Treat [CONS] Routine Comment: Reason For Exam: DECREASED MOBILITY 04/25/20 11:10 Consult to Physician [CONS] Routine Comment: Consulting Provider: MARK LIVE Physician Instructions: Reason For Exam: TATIANA 04/30/20 18:33 Consult to Physician [CONS] Routine Comment: Reorder Consulting Provider: MARK LIVE Physician Instructions: Reason For Exam: AMS Primary care physician: SIGN [employer]IN[employer]CE Hospitalization Reason for admission: Respiratory failure Condition: Stable Hospital course: 54-year-old female with a past medical history of Hypertension, Depression, Tobacco use Disorder, Alcohol use Disorder as confirmed by Daughter and pt's mother presents to the hospital status post cardiac arrest at home. EMS found pt in [place]. They were unable to intubate patient with a ET tube because she was clenching down therefore Joe airway placed. Per the ED physician who evaluated pt, Patient presented with a pulse, intermittent respirations, and bagging support via Joe airway with O2 sat of 100%. Accu-Chek of 71 obtained by EMS. She was intubated in the ER and called for admission. Following admission patient was diagnosed with anoxic brain injury, sepsis with MRSA bacteremia and MSSA pneumonia, alcoholic liver disease. Family member initially wished for full code then changed to DNR, patient treated with IV antibiotics for sepsis, status post trach and PEG on 12/13/19. Weaned off from the vent and put on T- piece. Patient is uninsured, waiting for placement, guarded prognosis. 03/07: Returning to service no acute changes are noted. Continue current management while awaiting placement. Intermittent labs. Base of neck also around tracheostomy tube preventing downgrading. Continue appropriate wound care. 03/08: Plan of care unchanged continues on aerosol trach collar 28% of oxygen. Continue wound care management placement still pending status decision. 03/09: Continue current treatment plan. Continue aspiration precaution 03/10: Continue current management, Restraints as patient still pulling, awaiting placement 03/11: Continue supportive care, intermittent suctioning and pulmonary toilet. awaiting placement. 03/12: Continue supportive care, Give a bolus of fluids due to Hypercalcemia, Monitor Hyperkalemia with labs in am, No arrhythmia. Patient vomiting, concern for aspiration, Chest xray ordered and no active disease noted. Keep HOB >45% 03/13: No evidence of aspiration on xray. Continue supportive care. 03/14: Continue supportive care. Capping trials to start. Discussed with patients nursing and case management to continue daily PT by the Rehab team. 03/15: Discussed again with staff to start capping trial. 03/16: Do not see any indication the capping trial has started will discuss with respiratory therapist. Continue restraints. Still awaiting family decision patient has had some remarkable improvement considering the fact that she was able to stay around night without restraints. We will continue daily trial of this method. Discussed plan with nursing staff 03/17: Continue current care. Currently continue restraints. Continue current management. Continue physical therapy daily. 03/18: Capping trial successful and will possibly get decannulated today. Continue placement. 03/19: Now decannulated and doing well. Begin discharge planning. 03/20: Stable, no new complaints. 03/21: No new complaints. Continue supportive 03/22: No new complaints, still with some confusion, and agitation requiring restraints. Will require daily PT/OT and continue to work with Case management for placement 03/23: continue current management, daily PT/OT. stoma care. No new seizure, slow but gradual improvement noted daily 03/24: Mr. Amaya is a 55-year-old female who presented to the hospital was admitted post cardiac arrest at home she has remarkably done well been extubated and decannulated with stoma healing. She still does experience some intermittent delirious process and as a result is on restraints. I have di scussed with nursing staff to see if they can provide a sitter for her and continue daily PT as this will aid in reintroducing her to the community. Case management is working on placement for her. Will check labs in a.m. 04/29: Returning to services, please see other notes. Patient stable and continues to improve. STILL WITH ALTERED MENTAL STATUS, SHE STILL REQUIRES RESTRAINTS, CASE MANAGEMENT WORKING ON PLACEMENT 04/30: Clinically stable continue to monitor still with altered sensorium still awaiting placement. Will check intermittent labs. 05/02: Patient was seen by neurologist no new information noted no further recommendation recommended. Patient continues to be alert but still confused. Remains on restraints for the same reason. Continue daily restrain break while monitoring for fall. Sclera status remains stable. 05/03: At this time is safe to say that she does have dementia from anoxic brain injury although has periods of lucidness. We will continue current management. Discussed with case management about possible guardianship. As family is not willing to take the patient home. 05/04: Monitor tachycardia worse continue supportive care. 05/05: No clinical change, continues to require Restraints due to resulting Dementia and impulsive movements. Pending placement. 05/13: No clinical change continue current treatment continue restraints with intermittent break while awaiting placement, patient still with delirium due to underlying dementia probably from hypoxic anoxic brain injury. 05/14: Continue current care. Restraints renewed. Agree with physical therapy. 05/15: Continue current management. Awaiting case management input. 05/16: Clinically stable, continue current management. PERSONAL LONG TERM ACCEPTING THE PATIENT AND WILL MANAGE CARE ALONG WITH FAMILY . / Anoxic brain injury: suspected CT head: No acute abnormality. EEG ordered showed Generalized slowing. No seizures or epileptiform activity. -Patient now opening her eyes, can speak and able to follow command - as needed haldol for agitation /Acute Respiratory failure - due to MSSA PNA -s/p intubation, s/p trach and PEG on 12/12 with mechanical ventilation, s/p T- piece, now on RA - CTA was done and negative for PE, - Echo quality is poor, showed diastolic dysfunction /Anemia, microcytic - Status post 3 units PRBC transfusion, H&H low stable /Acute metabolic encephalopathy/toxic encephalopathy due to the above - cont supportive care /Hyperammonemia - likely from liver disease related to EtOH abuse - Patient had elevated ammonia level and treated with lactulose /Metabolic Acidosis -Alcohol ketoacidosis vs hypoprofusion -Continue to monitor /ELevated LFTs, stable now - due to ischemic hepatitis. /Leucocytosis with sepsis - Source MRSA bacteremia and MSSA pneumonia. UA showed pyuria. RUQ US showed no ascites. - Repeat TTE negative for vegetation. Completed 7 days of Ceftriaxone on 11/29/2019. -Treated with Abx vancomycin 1 gm IV q 12 hour total 2 week till 12/30/2019 /MSSA pneumonia: Status post vancomycin till 12/30/2019 /ALcohol USe Disorder - given ongoing Alcohol use almost daily, s/p IV Thiamine - monitor /Severe hypokalemia -Repleted /Seizure disorder: treat with Keppra /H. Influenzae, tracheobronchitis, treated with abx /Moderate to severe fecal impaction - added stool softner DNR CODE STATUS Disposition: [id number]/[place]-06 HOME UNDER HOME [facility] Time spent for discharge: 35 MINS Core Measure Documentation - Palliative Care Palliative Care/ Comfort Measures: Not Applicable - Core Measures Any of the following diagnoses?: none Exam - Physical Exam Narrative exam: General appearance: Present: Appears older than stated age, lying down, still on restraints - EENT Eyes: no scleral icterus, no conjunctival injection, pupil not reactive ENT: clear oral mucosa, dentition normal, no oropharyngeal erythema Ears: bilateral: normal - Neck Neck: stoma clena and dry - Respiratory Respiratory effort: other dressing over the stoma Respiratory: bilateral: rales - Cardiovascular Rhythm: Mildly tachycardic Heart Sounds: Present: S1 & S2. Absent: gallop, rub Extremities: pulses intact, No edema, normal color - Gastrointestinal General gastrointestinal: Present: soft, non-tender, non-distended, normal bowel sounds - Integumentary Integumentary: clear, warm, dry - Musculoskeletal Musculoskeletal: No joint swelling or tenderness - Neurologic Neurologic: other (2+ reflexes throughout). respond to commend answers questions appropriately today - Psychiatric Psychiatric: co-operative - Constitutional Vitals: Temp Pulse Resp BP Pulse Ox 97.9 F 78 18 146/83 98 05/16/20 08:59 05/16/20 08:59 05/16/20 08:59 05/16/20 08:59 05/16/20 08:59 Plan Activity: advance as tolerated, fall precautions Diet: regular (mechanical soft, chopped ) Special Instructions: record daily weights, record daily BP diary Follow up with: RITCHIE RAI MD [Staff Physician] - 7 Days JANICE ADAMS MD [Staff Physician] - 7 Days PRIMARY CARE, [Primary Care Provider] - 3-5 Days MARINO BUSTOS MD [Staff Physician] - 7 Days Prescriptions: LORazepam [Ativan] 1 mg PO QHS #30 tablet Mirtazapine [Remeron 30mg Rapdis] 30 mg PO QHS #30 tab.rapdis Folic Acid [Folvite] 1 mg PO QDAY #30 tablet guaiFENesin DM [Guaifenesin Dm Syrup] 10 ml PO Q6H PRN #14 oral.liqd PRN Reason: Cough Nicotine [Habitrol] 21 mg TD QDAY #14 patch levETIRAcetam [Keppra] 500 mg PO BID 30 Days udc Lansoprazole Solutab [Prevacid Solutab] 30 mg PO QDAY #30 tab hydrOXYzine PAMOATE [Vistaril] 25 mg PO BID #60 capsule
[2020-05-16] MEDS: LORazepam 1 MG TAB PO SCH (21:41)
[2020-05-16] MEDS: ENOXAPARIN 40 MG/0.4 ML INJ SUB-Q SCH (21:41)
[2020-05-17] MEDS: FOLIC ACID 1 MG TAB PO SCH (10:35)
[2020-05-17] MEDS: SCOPOLAMINE TRANSDERMAL PATCH 72 HR TD SCH (10:35)
[2020-05-17] MEDS: MIRTAZAPINE 30 MG TAB PO SCH (10:35)
[2020-05-17] MEDS: SERTRALINE 50 MG TAB PO SCH (10:35)
[2020-05-17] MEDS: LANSOPRAZOLE 30 MG SOLUTAB FEEDTUBE SCH (10:35)
[2020-05-17] MEDS: levETIRAcetam 500 MG/5 ML ORAL LIQD PO SCH ×2 (10:35→21:08)
[2020-05-17] MEDS: hydrOXYzine PAMOATE 25 MG CAP PO SCH ×2 (10:35→21:08)
[2020-05-17] MEDS: NICOTINE 21 MG/24 HR PATCH TD SCH (10:35)
--- NOTE | 2020-05-17 10:37 | Progress Note ---
Assessment and Plan Assessment and plan: 54-year-old female with a past medical history of Hypertension, Depression, Tobacco use Disorder, Alcohol use Disorder as confirmed by Daughter and pt's mother presents to the hospital status post cardiac arrest at home. EMS found pt in [facility]. They were unable to intubate patient with a ET tube because she was clenching down therefore Joe airway placed. Per the ED physician who evaluated pt, Patient presented with a pulse, intermittent respirations, and bagging support via Joe airway with O2 sat of 100%. Accu-Chek of 71 obtained by EMS. She was intubated in the ER and called for admission. Following admission patient was diagnosed with anoxic brain injury, sepsis with MRSA bacteremia and MSSA pneumonia, alcoholic liver disease. Family member initially wished for full code then changed to DNR, patient treated with IV antibiotics for sepsis, status post trach and PEG on 12/13/19. Weaned off from the vent and put on T- piece. Patient is uninsured, waiting for placement, guarded prognosis. 03/07: Returning to service no acute changes are noted. Continue current management while awaiting placement. Intermittent labs. Base of neck also around tracheostomy tube preventing downgrading. Continue appropriate wound care. 03/08: Plan of care unchanged continues on aerosol trach collar 28% of oxygen. Continue wound care management placement still pending status decision. 03/09: Continue current treatment plan. Continue aspiration precaution 03/10: Continue current management, Restraints as patient still pulling, awaiting placement 03/11: Continue supportive care, intermittent suctioning and pulmonary toilet. awaiting placement. 03/12: Continue supportive care, Give a bolus of fluids due to Hypercalcemia, Monitor Hyperkalemia with labs in am, No arrhythmia. Patient vomiting, concern for aspiration, Chest xray ordered and no active disease noted. Keep HOB >45% 03/13: No evidence of aspiration on xray. Continue supportive care. 03/14: Continue supportive care. Capping trials to start. Discussed with patients nursing and case management to continue daily PT by the Rehab team. 03/15: Discussed again with staff to start capping trial. 03/16: Do not see any indication the capping trial has started will discuss with respiratory therapist. Continue restraints. Still awaiting family decision patient has had some remarkable improvement considering the fact that she was able to stay around night without restraints. We will continue daily trial of this method. Discussed plan with nursing staff 03/17: Continue current care. Currently continue restraints. Continue current management. Continue physical therapy daily. 03/18: Capping trial successful and will possibly get decannulated today. Continue placement. 03/19: Now decannulated and doing well. Begin discharge planning. 03/20: Stable, no new complaints. 03/21: No new complaints. Continue supportive 03/22: No new complaints, still with some confusion, and agitation requiring restraints. Will require daily PT/OT and continue to work with Case management for placement 03/23: continue current management, daily PT/OT. stoma care. No new seizure, slow but gradual improvement noted daily 03/24: Mr. Amaya is a 55-year-old female who presented to the hospital was admitted post cardiac arrest at home she has remarkably done well been extubated and decannulated with stoma healing. She still does experience some intermittent delirious process and as a result is on restraints. I have discussed with nursing staff to see if they can provide a sitter for her and continue daily PT as this will aid in reintroducing her to the community. Case management is working on placement for her. Will check labs in a.m. 04/29: Returning to services, please see other notes. Patient stable and continues to improve. STILL WITH ALTERED MENTAL STATUS, SHE STILL REQUIRES RESTRAINTS, CASE MANAGEMENT WORKING ON PLACEMENT 04/30: Clinically stable continue to monitor still with altered sensorium still awaiting placement. Will check intermittent labs. 05/02: Patient was seen by neurologist no new information noted no further recommendation recommended. Patient continues to be alert but still confused. Remains on restraints for the same reason. Continue daily restrain break while monitoring for fall. Sclera status remains stable. 05/03: At this time is safe to say that she does have dementia from anoxic brain injury although has periods of lucidness. We will continue current management. Discussed with case management about possible guardianship. As family is not willing to take the patient home. 05/04: Monitor tachycardia worse continue supportive care. 05/05: No clinical change, continues to require Restraints due to resulting Dementia and impulsive movements. Pending placement. 05/13: No clinical change continue current treatment continue restraints with intermittent break while awaiting placement, patient still with delirium due to underlying dementia probably from hypoxic anoxic brain injury. 05/14: Continue current care. Restraints renewed. Agree with physical therapy. 05/15: Continue current management. Awaiting case management input. 05/16: Clinically stable, continue current management 05/17: Awaiting placement, was discharged yesterday but per records medication was not available. / Anoxic brain injury: suspected CT head: No acute abnormality. EEG ordered showed Generalized slowing. No seizures or epileptiform activity. -Patient now opening her eyes, can speak and able to follow command - as needed haldol for agitation /Acute Respiratory failure - due to MSSA PNA -s/p intubation, s/p trach and PEG on 12/12 with mechanical ventilation, s/p T- piece, now on RA - CTA was done and negative for PE, - Echo quality is poor, showed diastolic dysfunction /Anemia, microcytic - Status post 3 units PRBC transfusion, H&H low stable /Acute metabolic encephalopathy/toxic encephalopathy due to the above - cont supportive care /Hyperammonemia - likely from liver disease related to EtOH abuse - Patient had elevated ammonia level and treated with lactulose /Metabolic Acidosis -Alcohol ketoacidosis vs hypoprofusion -Continue to monitor /ELevated LFTs, stable now - due to ischemic hepatitis. /Leucocytosis with sepsis - Source MRSA bacteremia and MSSA pneumonia. UA showed pyuria. RUQ US showed no ascites. - Repeat TTE negative for vegetation. Completed 7 days of Ceftriaxone on 11/29/2019. -Treated with Abx vancomycin 1 gm IV q 12 hour total 2 week till 12/30/2019 /MSSA pneumonia: Status post vancomycin till 12/30/2019 /ALcohol USe Disorder - given ongoing Alcohol use almost daily, s/p IV Thiamine - monitor /Severe hypokalemia -Repleted /Seizure disorder: treat with Keppra /H. Influenzae, tracheobronchitis, treated with abx /Moderate to severe fecal impaction - added stool softner DNR CODE STATUS Disposition: prognosis guarded. Family okay for DNR, PT recommended subacute rehab, discharge pending on placement. negative for COVID 19. Patient remains pleasantly confused and incoherent. History Interval history: Patient seen and examined, resting comfortable. No new complaints. Hospitalist Physical - Physical exam Narrative exam: General appearance: Present: Appears older than stated age, lying down, still on restraints - EENT Eyes: no scleral icterus, no conjunctival injection, pupil not reactive ENT: clear oral mucosa, dentition normal, no oropharyngeal erythema Ears: bilateral: normal - Neck Neck: stoma clena and dry - Respiratory Respiratory effort: other dressing over the stoma Respiratory: bilateral: rales - Cardiovascular Rhythm: Mildly tachycardic Heart Sounds: Present: S1 & S2. Absent: gallop, rub Extremities: pulses intact, No edema, normal color - Gastrointestinal General gastrointestinal: Present: soft, non-tender, non-distended, normal bowel sounds - Integumentary Integumentary: clear, warm, dry - Musculoskeletal Musculoskeletal: No joint swelling or tenderness - Neurologic Neurologic: other (2+ reflexes throughout). respond to commend answers questions appropriately today - Psychiatric Psychiatric: co-operative - Constitutional Vitals: Temp Pulse Resp BP Pulse Ox 98.0 F 83 20 145/84 99 05/17/20 07:46 05/17/20 07:46 05/17/20 07:46 05/17/20 07:46 05/17/20 07:46 General appearance: Present: no acute distress HEART Score - HEART Score Troponin: Troponin T < 0.010 ng/mL (0.00-0.029) 11/22/19 23:27 Results - Labs CBC & Chem 7: 05/01/20 07:57 05/01/20 07:57 Labs: Laboratory Last Values WBC 6.8 K/mm3 (4.5-11.0) 05/01/20 07:57 RBC 3.90 M/mm3 (3.65-5.03) 05/01/20 07:57 Hgb 11.4 gm/dl (10.1-14.3) 05/01/20 07:57 Hct 34.9 % (30.3-42.9) 05/01/20 07:57 MCV 90 fl (79-97) 05/01/20 07:57 MCH 29 pg (28-32) 05/01/20 07:57 MCHC 33 % (30-34) 05/01/20 07:57 RDW 14.5 % (13.2-15.2) 05/01/20 07:57 Plt Count 498 K/mm3 (140-440) H 05/01/20 07:57 Lymph % (Auto) 25.9 % (13.4-35.0) 04/16/20 09:02 [place] % (Auto) 7.4 % (0.0-7.3) H 04/16/20 09:02 Eos % (Auto) 0.9 % (0.0-4.3) 04/16/20 09:02 Baso % (Auto) 0.8 % (0.0-1.8) 04/16/20 09:02 Lymph # 1.7 K/mm3 (1.2-5.4) 04/16/20 09:02 [place] # 0.5 K/mm3 (0.0-0.8) 04/16/20 09:02 Eos # 0.1 K/mm3 (0.0-0.4) 04/16/20 09:02 Baso # 0.1 K/mm3 (0.0-0.1) 04/16/20 09:02 Add Manual Diff Complete 12/25/19 03:47 Total Counted 200 12/25/19 03:47 Seg Neutrophils % 65.0 % (40.0-70.0) 04/16/20 09:02 Seg Neuts % (Manual) 97.5 % (40.0-70.0) H 12/25/19 03:47 Band Neutrophils % 0 % 12/25/19 03:47 Lymphocytes % (Manual) 1.0 % (13.4-35.0) L 12/25/19 03:47 Reactive Lymphs % (Man) 0 % 12/25/19 03:47 Monocytes % (Manual) 1.5 % (0.0-7.3) 12/25/19 03:47 Eosinophils % (Manual) 0 % (0.0-4.3) 12/25/19 03:47 Basophils % (Manual) 0 % (0.0-1.8) 12/25/19 03:47 Metamyelocytes % 0 % 12/25/19 03:47 Myelocytes % 0 % 12/25/19 03:47 Promyelocytes % 0 % 12/25/19 03:47 Blast Cells % 0 % 12/25/19 03:47 Nucleated RBC % Not Reportable 12/25/19 03:47 Seg Neutrophils # 4.4 K/mm3 (1.8-7.7) 04/16/20 09:02 Seg Neutrophils # Man 35.3 K/mm3 (1.8-7.7) H 12/25/19 03:47 Band Neutrophils # 0.0 K/mm3 12/25/19 03:47 Lymphocytes # (Manual) 0.4 K/mm3 (1.2-5.4) L 12/25/19 03:47 Abs React Lymphs (Man) 0.0 K/mm3 12/25/19 03:47 Monocytes # (Manual) 0.5 K/mm3 (0.0-0.8) 12/25/19 03:47 Eosinophils # (Manual) 0.0 K/mm3 (0.0-0.4) 12/25/19 03:47 Basophils # (Manual) 0.0 K/mm3 (0.0-0.1) 12/25/19 03:47 Metamyelocytes # 0.0 K/mm3 12/25/19 03:47 Myelocytes # 0.0 K/mm3 12/25/19 03:47 Promyelocytes # 0.0 K/mm3 12/25/19 03:47 Blast Cells # 0.0 K/mm3 12/25/19 03:47 Pathologist Review 12/13/19 07:48 WBC Morphology Not Reportable 12/25/19 03:47 Hypersegmented Neuts Not Reportable 12/25/19 03:47 Hyposegmented Neuts Not Reportable 12/25/19 03:47 Hypogranular Neuts Not Reportable 12/25/19 03:47 Smudge Cells Not Reportable 12/25/19 03:47 Toxic Granulation Not Reportable 12/25/19 03:47 Toxic Vacuolation Not Reportable 12/25/19 03:47 Dohle Bodies Not Reportable 12/25/19 03:47 Pelger-Huet Anomaly Not Reportable 12/25/19 03:47 Dominique Rods Not Reportable 12/25/19 03:47 Platelet Estimate Consistent w auto 12/25/19 03:47 Clumped Platelets Not Reportable 12/25/19 03:47 Plt Clumps, EDTA Not Reportable 12/25/19 03:47 Large Platelets Not Reportable 12/25/19 03:47 Giant Platelets Not Reportable 12/25/19 03:47 Platelet Satelliting Not Reportable 12/25/19 03:47 Plt Morphology Comment Not Reportable 12/25/19 03:47 RBC Morphology Not Reportable 12/25/19 03:47 Dimorphic RBCs Not Reportable 12/25/19 03:47 Polychromasia Not Reportable 12/25/19 03:47 Hypochromasia Not Reportable 12/25/19 03:47 Poikilocytosis Not Reportable 12/25/19 03:47 Anisocytosis 1+ 12/25/19 03:47 Microcytosis Not Reportable 12/25/19 03:47 Macrocytosis Not Reportable 12/25/19 03:47 Spherocytes Not Reportable 12/25/19 03:47 Pappenheimer Bodies Not Reportable 12/25/19 03:47 Sickle Cells Not Reportable 12/25/19 03:47 Target Cells Not Reportable 12/25/19 03:47 Tear Drop Cells Not Reportable 12/25/19 03:47 Ovalocytes Not Reportable 12/25/19 03:47 Helmet Cells Not Reportable 12/25/19 03:47 Frias-Effort Bodies Not Reportable 12/25/19 03:47 Lynn Rings Not Reportable 12/25/19 03:47 Jamshid Cells Not Reportable 12/25/19 03:47 Bite Cells Not Reportable 12/25/19 03:47 Crenated Cell Not Reportable 12/25/19 03:47 Elliptocytes Not Reportable 12/25/19 03:47 Acanthocytes (Spur) Not Reportable 12/25/19 03:47 Rouleaux Not Reportable 12/25/19 03:47 Hemoglobin C Crystals Not Reportable 12/25/19 03:47 Schistocytes Not Reportable 12/25/19 03:47 Malaria parasites Not Reportable 12/25/19 03:47 Gregg Bodies Not Reportable 12/25/19 03:47 Hem Pathologist Commnt No 12/25/19 03:47 PT 17.0 Sec. (12.2-14.9) H 11/23/19 03:47 INR 1.36 (0.87-1.13) H 11/23/19 03:47 APTT 128.2 Sec. (24.2-36.6) H* 11/23/19 03:47 Heparin Anti-Xa Level 0.31 U.I./ml (0.3-0.7) 11/23/19 09:03 ABG pH 7.433 pH Units (7.350-7.450) 03/08/20 13:25 ABG pCO2 40.2 mm Hg 03/08/20 13:25 ABG pO2 71.1 mm Hg (80.0-90.0) L 03/08/20 13:25 ABG HCO3 26.2 mmol/L (20.0-26.0) H 03/08/20 13:25 ABG O2 Saturation 97.0 % (95.0-99.0) 03/08/20 13:25 ABG O2 Content 11.0 (0.0-44) 03/08/20 13:25 ABG Base Excess 1.8 mmol/L (-2.0-3.0) 03/08/20 13:25 ABG Hemoglobin 8.2 gm/dl (12.0-16.0) L 03/08/20 13:25 ABG Carboxyhemoglobin 1.7 % (0.0-5.0) 03/08/20 13:25 ABG Methemoglobin 0.5 % (0.0-1.5) 03/08/20 13:25 Oxyhemoglobin 94.8 % (95.0-99.0) L 03/08/20 13:25 FiO2 21 % 03/08/20 13:25 Sodium 140 mmol/L (137-145) 05/01/20 07:57 Potassium 4.6 mmol/L (3.6-5.0) 05/01/20 07:57 Chloride 101.7 mmol/L (98-107) 05/01/20 07:57 Carbon Dioxide 27 mmol/L (22-30) 05/01/20 07:57 Anion Gap 16 mmol/L 05/01/20 07:57 BUN 21 mg/dL (7-17) H 05/01/20 07:57 Creatinine 0.7 mg/dL (0.6-1.2) 05/01/20 07:57 Estimated GFR > 60 ml/min 05/01/20 07:57 BUN/Creatinine Ratio 30 % 05/01/20 07:57 Glucose 96 mg/dL (65-100) 05/01/20 07:57 POC Glucose 152 (70-105) H 05/09/20 11:36 Lactic Acid 1.80 mmol/L (0.7-2.0) 11/25/19 05:05 Calcium 10.6 mg/dL (8.4-10.2) H 05/01/20 07:57 Ionized Calcium 4.5 mg/dL (4.8-5.6) L 11/23/19 06:32 Phosphorus 4.20 mg/dL (2.5-4.5) D 11/28/19 08:59 Magnesium 1.90 mg/dL (1.7-2.3) 02/28/20 03:40 Total Bilirubin 0.40 mg/dL (0.1-1.2) 12/13/19 07:48 AST 27 units/L (5-40) 12/13/19 07:48 ALT 26 units/L (7-56) 12/13/19 07:48 Alkaline Phosphatase 316 units/L (35-129) H 12/13/19 07:48 Ammonia 42.0 umol/L (25-60) 11/29/19 13:41 Total Creatine Kinase 139 units/L (30-135) H 11/22/19 23:27 CK-MB (CK-2) 8.3 ng/mL (0.0-4.0) H 11/22/19 23:27 CK-MB (CK-2) Rel Index 5.9 (0-4) H 11/22/19 23:27 Troponin T < 0.010 ng/mL (0.00-0.029) 11/22/19 23:27 Total Protein 6.8 g/dL (6.3-8.2) 12/13/19 07:48 Albumin 2.4 g/dL (3.9-5) L 12/13/19 07:48 Albumin/Globulin Ratio 0.5 % 12/13/19 07:48 Lipase 18 units/L (13-60) 11/23/19 00:34 Procalcitonin 1.09 ng/mL (<0.15) 11/23/19 04:53 TSH 1.140 mlU/mL (0.270-4.200) 04/30/20 15:06 Free T4 1.08 ng/dL (0.76-1.46) 02/12/20 07:36 Urine Color Yellow (Yellow) 12/16/19 Unknown Urine Turbidity Slightly-cloudy (Clear) 12/16/19 Unknown Urine pH 5.0 (5.0-7.0) 12/16/19 Unknown Ur Specific [place] 1.018 (1.003-1.030) 12/16/19 Unknown Urine Protein 30 mg/dl mg/dL (Negative) 12/16/19 Unknown Urine Glucose (UA) Neg mg/dL (Negative) 12/16/19 Unknown Urine Ketones Neg mg/dL (Negative) 12/16/19 Unknown Urine Blood Sm (Negative) 12/16/19 Unknown Urine Nitrite Neg (Negative) 12/16/19 Unknown Urine Bilirubin Neg (Negative) 12/16/19 Unknown Urine Urobilinogen < 2.0 mg/dL (<2.0) 12/16/19 Unknown Ur Leukocyte Esterase Neg (Negative) 12/16/19 Unknown Urine WBC (Auto) 6.0 /HPF (0.0-6.0) 12/16/19 Unknown Urine RBC (Auto) 9.0 /HPF (0.0-6.0) 12/16/19 Unknown U Epithel Cells (Auto) < 1.0 /HPF (0-13.0) 12/16/19 Unknown Urine Bacteria (Auto) 2+ /HPF (Negative) 11/22/19 23:17 Hyaline Casts 3 /LPF 12/16/19 Unknown Granular Casts 3 /LPF 12/16/19 Unknown Urine Mucus Few /HPF 12/16/19 Unknown Vancomycin Trough 33.8 ug/mL (5.0-20.0) H 12/21/19 08:56 Random Vancomycin 16.2 ug/mL (0-40.0) 12/24/19 04:31 Salicylates < 0.3 mg/dL (2.8-20.0) L 11/22/19 23:27 Urine Opiates Screen Presumptive negative 11/22/19 23:17 Urine Methadone Screen Presumptive negative 11/22/19 23:17 Acetaminophen < 5.0 ug/mL (10.0-30.0) L 11/22/19 23:27 Ur Barbiturates Screen Presumptive negative 11/22/19 23:17 Ur Phencyclidine Scrn Presumptive negative 11/22/19 23:17 Ur Amphetamines Screen Presumptive negative 11/22/19 23:17 U Benzodiazepines Scrn Presumptive negative 11/22/19 23:17 Urine Cocaine Screen Presumptive negative 11/22/19 23:17 U Marijuana (THC) Screen Presumptive negative 11/22/19 23:17 Drugs of Abuse Note Disclamer 11/22/19 23:17 Plasma/Serum Alcohol 0.08 % (0-0.07) H 11/22/19 23:27 Coronavirus (PCR) Negative (Negative) 02/05/20 07:50 Hepatitis A IgM Ab Non-reactive (NonReactive) 11/23/19 01:19 Hep Bs Antigen Non-reactive (Negative) 11/23/19 01:19 Hep B Core IgM Ab Non-reactive (NonReactive) 11/23/19 01:19 Hepatitis C Antibody Non-reactive (NonReactive) 11/23/19 01:19 Blood Type O POSITIVE 12/21/19 14:54 Antibody Screen Negative 12/21/19 14:54 Crossmatch See Detail 12/21/19 14:54 - Diagnostic Impressions Diagnostic Impressions: Echocardiogram 11/23/19 03:58 Transthoracic Echocardiogram Indication: Cardiac arrest BP: 131/89 HR: 115 Conclusions *The study quality is technically difficult. *Global left ventricular wall motion and contractility are within normal limits. *The estimated ejection fraction is 55-60%. *Abnormal left ventricular diastolic filling is observed, consistent with impaired relaxation. *There is no pericardial effusion. Findings Procedure Info: The study quality is technically difficult. The study was technically limited due to the patient's inability to lay in the left lateral decubitus position. Left Ventricle: The left ventricular chamber size is normal. There is no left ventricular hypertrophy. Global left ventricular wall motion and contractility are within normal limits. Global left ventricular systolic function is normal. The estimated ejection fraction is 55-60%. Abnormal left ventricular diastolic filling is observed, consistent with impaired relaxation. Left Atrium: The left atrial chamber size is normal. Aortic Valve: The aortic valve leaflets are mildly thickened. Mitral Valve: The mitral valve leaflets are mildly thickened. There is no evidence of mitral regurgitation. Tricuspid Valve: The tricuspid valve leaflets are normal. There is trace tricuspid regurgitation. The right ventricular systolic pressure is calculated at 33 mmHg. Pulmonic Valve: The pulmonic valve appears normal. Pericardium: The pericardium appears normal. There is no pericardial effusion. Aorta: The aorta appears normal. Venous: The inferior vena cava appears normal in size. Measurements Chambers 2D Name Value Normal Range IVSd (2D) 0.94 cm (0.6 - 1.1) LVPWd (2D) 0.81 cm (0.6 - 1.1) LVIDd (2D) 3.6 cm (3.7 - 5.6) LVIDs (2D) 2.27 cm (2 - 3.8) LV FS (2D) 36.93 % - EF Teichholz (2D) 67.76 % - Ao root diameter (2D) 3.03 cm (2 - 3.7) Volumes/Mass Name Value Normal Range LA ESV SP 4CH (A/L) 16.89 ml - LA ESV SP 4CH (MOD) 15.52 ml - Diastolic/Systolic Function Name Value Normal Range MV E-wave Vmax 0.55 m/sec - MV deceleration time 200.89 msec - MV A-wave Vmax 0.68 m/sec - MV E:A ratio 0.82 ratio - Aortic Valve Name Value Normal Range AV Vmax 1.1 m/sec - AV VTI 15.9 cm - AV peak gradient 4.86 mmHg - AV mean gradient 2.59 mmHg - LVOT diameter 2 cm - LVOT Vmax 1.03 m/sec - LVOT VTI 15.87 cm - LVOT peak gradient 4.24 mmHg - LVOT mean gradient 2.41 mmHg - SV LVOT 49.77 ml - JOSÉ MIGUEL (continuity Vmax) 2.93 cm2 - JOSÉ MIGUEL (continuity VTI) 3.13 cm2 - Tricuspid Valve Name Value Normal Range TR Vmax 2.74 m/sec - TR peak gradient 303 mmHg - RAP 3 mmHg - RVSP 33 mmHg - IVC diameter 1.77 cm (1.2 - 2.3) Pulmonic Valve/Qp:Qs Name Value Normal Range PV Vmax 0.77 m/sec - PV peak gradient 2.4 mmHg - PV acceleration time 114.18 msec - Echocardiogram Limited Views 12/17/19 14:53 Transthoracic Echocardiogram Indication: R/O Vegetations BP: 144/83 HR: 133 Conclusions *Global left ventricular systolic function is mildly decreased. *The estimated ejection fraction is 45-50%. *A trivial pericardial effusion is visualized. Findings Left Ventricle: The left ventricular chamber size is normal. Global left ventricular systolic function is mildly decreased. The estimated ejection fraction is 45-50%. Left Atrium: The left atrial chamber size is normal. Right Ventricle: The right ventricular cavity size is normal. Right Atrium: The right atrial cavity size is normal. Aortic Valve: The aortic valve is not well visualized. There is no evidence of aortic regurgitation. Mitral Valve: The mitral valve leaflets are mildly thickened. There is trace of mitral regurgitation. Tricuspid Valve: The tricuspid valve leaflets are mildly thickened. There is trace tricuspid regurgitation. The right ventricular systolic pressure is calculated at 29 mmHg. Pulmonic Valve: The pulmonic valve is not well visualized. There is no evidence of pulmonic regurgitation. Pericardium: A trivial pericardial effusion is visualized. Aorta: There is no dilatation of the ascending aorta. There is no dilatation of the aortic root. Venous: The inferior vena cava appears normal in size. There is a greater than 50% respiratory change in the inferior vena cava dimension. Measurements Chambers 2D Name Value Normal Range IVSd (2D) 0.83 cm (0.6 - 1.1) LVPWd (2D) 0.98 cm (0.6 - 1.1) LVIDd (2D) 3.71 cm (3.7 - 5.6) LVIDs (2D) 2.93 cm (2 - 3.8) LV FS (2D) 21.12 % - EF Teichholz (2D) 43.71 % - Ao root diameter (2D) 3.02 cm (2 - 3.7) Volumes/Mass Name Value Normal Range LA ESV SP 4CH (A/L) 36.8 ml - LA ESV SP 2CH (A/L) 45.89 ml - LA ESV BP (A/L) 42.35 ml - LA ESV BP (A/L) index 26.63 ml/m2 - LA ESV SP 4CH (MOD) 34.42 ml - LA ESV SP 2CH (MOD) 44.21 ml - LA ESV BP (MOD) 39.82 ml - LA ESV BP (MOD) index 25.05 ml/m2 - Aortic Valve Name Value Normal Range LVOT diameter 1.63 cm - Tricuspid Valve Name Value Normal Range TR Vmax 2.56 m/sec - TR peak gradient 26 mmHg - RAP 3 mmHg - RVSP 29 mmHg - IVC diameter 1.83 cm (1.2 - 2.3) Del[place] Cruz/IV: Voiding Method Incontinent IV Catheter Type [Forearm] Peripheral IV IV Catheter Type [Left Forearm INT / Saline Lock ] IV Catheter Type [Right INT / Saline Lock Antecubital] IV Catheter Type [Right Hand] INT / Saline Lock IV Catheter Type [Right Wrist] Peripheral IV IV Catheter Type [Left Wrist] Peripheral IV IV Catheter Type [Left Peripheral IV Antecubital] IV Catheter Type [Right INT / Saline Lock Forearm] IV Catheter Type [Left Hand] INT / Saline Lock Active Medications - Current Medications Current Medications: Generic Name Dose Route Start Last Admin Trade Name Freq PRN Reason Stop Dose Admin Albuterol 2.5 mg 03/25/20 19:25 04/07/20 08:59 Proventil IH 2.5 mg Q4HRT PRN Administration Shortness Of Breath Lipase/Protease/Amylase 1 each 11/23/19 11:[address] 10,500 Unit FEEDTUBE PRN PRN Use w/ sod bicarb for FT Enoxaparin Sodium 40 mg 03/07/20 22:00 05/16/20 21:41 Enoxaparin SUB-Q 40 mg QDAY@2200 LUCHO Administration Folic Acid 1 mg 04/27/20 10:00 05/17/20 10:35 Folvite PO 1 mg QDAY LUCHO Administration Guaifenesin 10 ml 04/28/20 05:11 05/15/20 20:53 Guaifenesin Dm Syrup PO 10 ml Q6H PRN Administration Cough Hydroxyzine Pamoate 25 mg 12/06/19 10:00 05/17/20 10:35 Vistaril PO 25 mg BID LUCHO Administration Lansoprazole 30 mg 11/27/19 10:00 05/17/20 10:35 Prevacid Solutab FEEDTUBE 30 mg QDAY LUCHO Administration Levetiracetam 500 mg 11/29/19 10:00 05/17/20 10:35 Keppra PO 500 mg BID LUCHO Administration Lorazepam 1 mg 05/08/20 22:00 05/16/20 21:41 Ativan PO 1 mg QHS LUCHO Administration Mirtazapine 30 mg 12/06/19 10:00 05/17/20 10:35 Remeron PO 30 mg DAILY LUCHO Administration Nicotine 21 mg 02/16/20 13:00 05/17/20 10:35 Habitrol TD 21 mg QDAY LUCHO Administration Scopolamine 1 each 02/08/20 15:00 05/17/20 10:35 Transderm-Scop TD 1 each Q3D LUCHO Administration Sertraline HCl 25 mg 01/01/20 10:00 05/17/20 10:35 Zoloft PO 25 mg QDAY LUCHO Administration Simple Syrup 15 ml 11/23/19 11:50 Simple Syrup FEEDTUBE PRN PRN Hypoglycemia BG<70 Simple Syrup 30 ml 11/23/19 11:50 Simple Syrup FEEDTUBE PRN PRN Hypoglycemia Sodium Bicarbonate 325 mg 11/23/19 11:50 04/30/20 12:27 Sodium Bicarbonate FEEDTUBE 325 mg PRN PRN Administration For Clogged Feeding Tube Nutrition/Malnutrition Assess - Dietary Evaluation Nutrition/Malnutrition Findings: Nutrition Notes Start: 11/23/19 11:29 Freq: Status: Active Protocol: Document 04/23/20 14:33 EVELIA (Rec: 04/23/20 14:35 EVELIA [email or web address] [email or web address]) Nutrition Notes Initial or Follow up Reassessment Other Pertinent Diagnosis s/p Cardiac arrest, acute metabolic encephalopathy Current Diet Mech soft with chopped meats Labs/Tests Reviewed Pertinent Medications Reviewed Height 5 ft 6 in Weight 43.5 kg [place] Body Weight (kg) 59.09 BMI 15.5 Subjective/Other Information Pt has consumed 79% of meals since last assessment. Percent of energy/protein needs met: 100% energy 100% pro Burn Absent Trauma Absent Current % PO Good (75-100%) #2 Nutrition Diagnosis Malnutrition Diagnosis Progress(for reassessment Continues documentation) Is patient on ventilator? No Is Patient Ambulatory and/or Out of Bed No REE-([facility]-confined to bed) 1260.864 Kcal/Kg value to use for calculation 35 Approximate Energy Requirements Using 1523 kcal/Kg Calculation Used for Recommendations Kcal/kg Additional Notes Pro needs 1.2-1.5g/k-65g/ day Fluid needs 1ml/kcal Nutrition Intervention Goal #1 PO intake of meals plus ONS to meet 100% energy and pro needs Goal #2 Wt maintenance and/or gain Revisit per MD consult or patient Sign Off request:
[2020-05-17] MEDS: LORazepam 1 MG TAB PO SCH (21:08)
[2020-05-17] MEDS: ENOXAPARIN 40 MG/0.4 ML INJ SUB-Q SCH (21:08)
--- NOTE | 2020-05-18 10:36 | Progress Note ---
Assessment and Plan Assessment and plan: 54-year-old female with a past medical history of Hypertension, Depression, Tobacco use Disorder, Alcohol use Disorder as confirmed by Daughter and pt's mother presents to the hospital status post cardiac arrest at home. EMS found pt in [facility]. They were unable to intubate patient with a ET tube because she was clenching down therefore Joe airway placed. Per the ED physician who evaluated pt, Patient presented with a pulse, intermittent respirations, and bagging support via Joe airway with O2 sat of 100%. Accu-Chek of 71 obtained by EMS. She was intubated in the ER and called for admission. Following admission patient was diagnosed with anoxic brain injury, sepsis with MRSA bacteremia and MSSA pneumonia, alcoholic liver disease. Family member initially wished for full code then changed to DNR, patient treated with IV antibiotics for sepsis, status post trach and PEG on 12/13/19. Weaned off from the vent and put on T- piece. Patient is uninsured, waiting for placement, guarded prognosis. 03/07: Returning to service no acute changes are noted. Continue current management while awaiting placement. Intermittent labs. Base of neck also around tracheostomy tube preventing downgrading. Continue appropriate wound care. 03/08: Plan of care unchanged continues on aerosol trach collar 28% of oxygen. Continue wound care management placement still pending status decision. 03/09: Continue current treatment plan. Continue aspiration precaution 03/10: Continue current management, Restraints as patient still pulling, awaiting placement 03/11: Continue supportive care, intermittent suctioning and pulmonary toilet. awaiting placement. 03/12: Continue supportive care, Give a bolus of fluids due to Hypercalcemia, Monitor Hyperkalemia with labs in am, No arrhythmia. Patient vomiting, concern for aspiration, Chest xray ordered and no active disease noted. Keep HOB >45% 03/13: No evidence of aspiration on xray. Continue supportive care. 03/14: Continue supportive care. Capping trials to start. Discussed with patients nursing and case management to continue daily PT by the Rehab team. 03/15: Discussed again with staff to start capping trial. 03/16: Do not see any indication the capping trial has started will discuss with respiratory therapist. Continue restraints. Still awaiting family decision patient has had some remarkable improvement considering the fact that she was able to stay around night without restraints. We will continue daily trial of this method. Discussed plan with nursing staff 03/17: Continue current care. Currently continue restraints. Continue current management. Continue physical therapy daily. 03/18: Capping trial successful and will possibly get decannulated today. Continue placement. 03/19: Now decannulated and doing well. Begin discharge planning. 03/20: Stable, no new complaints. 03/21: No new complaints. Continue supportive 03/22: No new complaints, still with some confusion, and agitation requiring restraints. Will require daily PT/OT and continue to work with Case management for placement 03/23: continue current management, daily PT/OT. stoma care. No new seizure, slow but gradual improvement noted daily 03/24: Mr. Amaya is a 55-year-old female who presented to the hospital was admitted post cardiac arrest at home she has remarkably done well been extubated and decannulated with stoma healing. She still does experience some intermittent delirious process and as a result is on restraints. I have discussed with nursing staff to see if they can provide a sitter for her and continue daily PT as this will aid in reintroducing her to the community. Case management is working on placement for her. Will check labs in a.m. 04/29: Returning to services, please see other notes. Patient stable and continues to improve. STILL WITH ALTERED MENTAL STATUS, SHE STILL REQUIRES RESTRAINTS, CASE MANAGEMENT WORKING ON PLACEMENT 04/30: Clinically stable continue to monitor still with altered sensorium still awaiting placement. Will check intermittent labs. 05/02: Patient was seen by neurologist no new information noted no further recommendation recommended. Patient continues to be alert but still confused. Remains on restraints for the same reason. Continue daily restrain break while monitoring for fall. Sclera status remains stable. 05/03: At this time is safe to say that she does have dementia from anoxic brain injury although has periods of lucidness. We will continue current management. Discussed with case management about possible guardianship. As family is not willing to take the patient home. 05/04: Monitor tachycardia worse continue supportive care. 05/05: No clinical change, continues to require Restraints due to resulting Dementia and impulsive movements. Pending placement. 05/13: No clinical change continue current treatment continue restraints with intermittent break while awaiting placement, patient still with delirium due to underlying dementia probably from hypoxic anoxic brain injury. 05/14: Continue current care. Restraints renewed. Agree with physical therapy. 05/15: Continue current management. Awaiting case management input. 05/16: Clinically stable, continue current management 05/17: Awaiting placement, was discharged yesterday but per records medication was not available. 05/18: Clinically stable. awaiting placement, Restraints reassessed / Anoxic brain injury: suspected CT head: No acute abnormality. EEG ordered showed Generalized slowing. No seizures or epileptiform activity. -Patient now opening her eyes, can speak and able to follow command - as needed haldol for agitation /Acute Respiratory failure - due to MSSA PNA -s/p intubation, s/p trach and PEG on 12/12 with mechanical ventilation, s/p T- piece, now on RA - CTA was done and negative for PE, - Echo quality is poor, showed diastolic dysfunction /Anemia, microcytic - Status post 3 units PRBC transfusion, H&H low stable /Acute metabolic encephalopathy/toxic encephalopathy due to the above - cont supportive care /Hyperammonemia - likely from liver disease related to EtOH abuse - Patient had elevated ammonia level and treated with lactulose /Metabolic Acidosis -Alcohol ketoacidosis vs hypoprofusion -Continue to monitor /ELevated LFTs, stable now - due to ischemic hepatitis. /Leucocytosis with sepsis - Source MRSA bacteremia and MSSA pneumonia. UA showed pyuria. RUQ US showed no ascites. - Repeat TTE negative for vegetation. Completed 7 days of Ceftriaxone on 11/29/2019. -Treated with Abx vancomycin 1 gm IV q 12 hour total 2 week till 12/30/2019 /MSSA pneumonia: Status post vancomycin till 12/30/2019 /ALcohol USe Disorder - given ongoing Alcohol use almost daily, s/p IV Thiamine - monitor /Severe hypokalemia -Repleted /Seizure disorder: treat with Keppra /H. Influenzae, tracheobronchitis, treated with abx /Moderate to severe fecal impaction - added stool softner DNR CODE STATUS Disposition: prognosis guarded. Family okay for DNR, PT recommended subacute rehab, discharge pending on placement. negative for COVID 19. Patient remains pleasantly confused and incoherent. History Interval history: Patient seen and examined, resting comfortable. No new complaints. Hospitalist Physical - Physical exam Narrative exam: General appearance: Present: Appears older than stated age, lying down, still on restraints - EENT Eyes: no scleral icterus, no conjunctival injection, pupil not reactive ENT: clear oral mucosa, dentition normal, no oropharyngeal erythema Ears: bilateral: normal - Neck Neck: stoma clena and dry - Respiratory Respiratory effort: other dressing over the stoma Respiratory: bilateral: rales - Cardiovascular Rhythm: Mildly tachycardic Heart Sounds: Present: S1 & S2. Absent: gallop, rub Extremities: pulses intact, No edema, normal color - Gastrointestinal General gastrointestinal: Present: soft, non-tender, non-distended, normal bowel sounds - Integumentary Integumentary: clear, warm, dry - Musculoskeletal Musculoskeletal: No joint swelling or tenderness - Neurologic Neurologic: other (2+ reflexes throughout). respond to commend answers questions appropriately today - Psychiatric Psychiatric: co-operative - Constitutional Vitals: Temp Pulse Resp BP Pulse Ox 97.7 F 80 20 105/82 100 05/18/20 07:35 05/18/20 07:35 05/18/20 07:35 05/18/20 07:35 05/18/20 07:35 General appearance: Present: no acute distress HEART Score - HEART Score Troponin: Troponin T < 0.010 ng/mL (0.00-0.029) 11/22/19 23:27 Results - Labs CBC & Chem 7: 05/01/20 07:57 05/01/20 07:57 Labs: Laboratory Last Values WBC 6.8 K/mm3 (4.5-11.0) 05/01/20 07:57 RBC 3.90 M/mm3 (3.65-5.03) 05/01/20 07:57 Hgb 11.4 gm/dl (10.1-14.3) 05/01/20 07:57 Hct 34.9 % (30.3-42.9) 05/01/20 07:57 MCV 90 fl (79-97) 05/01/20 07:57 MCH 29 pg (28-32) 05/01/20 07:57 MCHC 33 % (30-34) 05/01/20 07:57 RDW 14.5 % (13.2-15.2) 05/01/20 07:57 Plt Count 498 K/mm3 (140-440) H 05/01/20 07:57 Lymph % (Auto) 25.9 % (13.4-35.0) 04/16/20 09:02 Gregory % (Auto) 7.4 % (0.0-7.3) H 04/16/20 09:02 Eos % (Auto) 0.9 % (0.0-4.3) 04/16/20 09:02 Baso % (Auto) 0.8 % (0.0-1.8) 04/16/20 09:02 Lymph # 1.7 K/mm3 (1.2-5.4) 04/16/20 09:02 Gregory # 0.5 K/mm3 (0.0-0.8) 04/16/20 09:02 Eos # 0.1 K/mm3 (0.0-0.4) 04/16/20 09:02 Baso # 0.1 K/mm3 (0.0-0.1) 04/16/20 09:02 Add Manual Diff Complete 12/25/19 03:47 Total Counted 200 12/25/19 03:47 Seg Neutrophils % 65.0 % (40.0-70.0) 04/16/20 09:02 Seg Neuts % (Manual) 97.5 % (40.0-70.0) H 12/25/19 03:47 Band Neutrophils % 0 % 12/25/19 03:47 Lymphocytes % (Manual) 1.0 % (13.4-35.0) L 12/25/19 03:47 Reactive Lymphs % (Man) 0 % 12/25/19 03:47 Monocytes % (Manual) 1.5 % (0.0-7.3) 12/25/19 03:47 Eosinophils % (Manual) 0 % (0.0-4.3) 12/25/19 03:47 Basophils % (Manual) 0 % (0.0-1.8) 12/25/19 03:47 Metamyelocytes % 0 % 12/25/19 03:47 Myelocytes % 0 % 12/25/19 03:47 Promyelocytes % 0 % 12/25/19 03:47 Blast Cells % 0 % 12/25/19 03:47 Nucleated RBC % Not Reportable 12/25/19 03:47 Seg Neutrophils # 4.4 K/mm3 (1.8-7.7) 04/16/20 09:02 Seg Neutrophils # Man 35.3 K/mm3 (1.8-7.7) H 12/25/19 03:47 Band Neutrophils # 0.0 K/mm3 12/25/19 03:47 Lymphocytes # (Manual) 0.4 K/mm3 (1.2-5.4) L 12/25/19 03:47 Abs React Lymphs (Man) 0.0 K/mm3 12/25/19 03:47 Monocytes # (Manual) 0.5 K/mm3 (0.0-0.8) 12/25/19 03:47 Eosinophils # (Manual) 0.0 K/mm3 (0.0-0.4) 12/25/19 03:47 Basophils # (Manual) 0.0 K/mm3 (0.0-0.1) 12/25/19 03:47 Metamyelocytes # 0.0 K/mm3 12/25/19 03:47 Myelocytes # 0.0 K/mm3 12/25/19 03:47 Promyelocytes # 0.0 K/mm3 12/25/19 03:47 Blast Cells # 0.0 K/mm3 12/25/19 03:47 Pathologist Review 12/13/19 07:48 WBC Morphology Not Reportable 12/25/19 03:47 Hypersegmented Neuts Not Reportable 12/25/19 03:47 Hyposegmented Neuts Not Reportable 12/25/19 03:47 Hypogranular Neuts Not Reportable 12/25/19 03:47 Smudge Cells Not Reportable 12/25/19 03:47 Toxic Granulation Not Reportable 12/25/19 03:47 Toxic Vacuolation Not Reportable 12/25/19 03:47 Dohle Bodies Not Reportable 12/25/19 03:47 Pelger-Huet Anomaly Not Reportable 12/25/19 03:47 Dominique Rods Not Reportable 12/25/19 03:47 Platelet Estimate Consistent w auto 12/25/19 03:47 Clumped Platelets Not Reportable 12/25/19 03:47 Plt Clumps, EDTA Not Reportable 12/25/19 03:47 Large Platelets Not Reportable 12/25/19 03:47 Giant Platelets Not Reportable 12/25/19 03:47 Platelet Satelliting Not Reportable 12/25/19 03:47 Plt Morphology Comment Not Reportable 12/25/19 03:47 RBC Morphology Not Reportable 12/25/19 03:47 Dimorphic RBCs Not Reportable 12/25/19 03:47 Polychromasia Not Reportable 12/25/19 03:47 Hypochromasia Not Reportable 12/25/19 03:47 Poikilocytosis Not Reportable 12/25/19 03:47 Anisocytosis 1+ 12/25/19 03:47 Microcytosis Not Reportable 12/25/19 03:47 Macrocytosis Not Reportable 12/25/19 03:47 Spherocytes Not Reportable 12/25/19 03:47 Pappenheimer Bodies Not Reportable 12/25/19 03:47 Sickle Cells Not Reportable 12/25/19 03:47 Target Cells Not Reportable 12/25/19 03:47 Tear Drop Cells Not Reportable 12/25/19 03:47 Ovalocytes Not Reportable 12/25/19 03:47 Helmet Cells Not Reportable 12/25/19 03:47 [place] Bodies Not Reportable 12/25/19 03:47 [place] Rings Not Reportable 12/25/19 03:47 Jamshid Cells Not Reportable 12/25/19 03:47 Bite Cells Not Reportable 12/25/19 03:47 Crenated Cell Not Reportable 12/25/19 03:47 Elliptocytes Not Reportable 12/25/19 03:47 Acanthocytes (Spur) Not Reportable 12/25/19 03:47 Rouleaux Not Reportable 12/25/19 03:47 Hemoglobin C Crystals Not Reportable 12/25/19 03:47 Schistocytes Not Reportable 12/25/19 03:47 Malaria parasites Not Reportable 12/25/19 03:47 Gregg Bodies Not Reportable 12/25/19 03:47 Hem Pathologist Commnt No 12/25/19 03:47 PT 17.0 Sec. (12.2-14.9) H 11/23/19 03:47 INR 1.36 (0.87-1.13) H 11/23/19 03:47 APTT 128.2 Sec. (24.2-36.6) H* 11/23/19 03:47 Heparin Anti-Xa Level 0.31 U.I./ml (0.3-0.7) 11/23/19 09:03 ABG pH 7.433 pH Units (7.350-7.450) 03/08/20 13:25 ABG pCO2 40.2 mm Hg 03/08/20 13:25 ABG pO2 71.1 mm Hg (80.0-90.0) L 03/08/20 13:25 ABG HCO3 26.2 mmol/L (20.0-26.0) H 03/08/20 13:25 ABG O2 Saturation 97.0 % (95.0-99.0) 03/08/20 13:25 ABG O2 Content 11.0 (0.0-44) 03/08/20 13:25 ABG Base Excess 1.8 mmol/L (-2.0-3.0) 03/08/20 13:25 ABG Hemoglobin 8.2 gm/dl (12.0-16.0) L 03/08/20 13:25 ABG Carboxyhemoglobin 1.7 % (0.0-5.0) 03/08/20 13:25 ABG Methemoglobin 0.5 % (0.0-1.5) 03/08/20 13:25 Oxyhemoglobin 94.8 % (95.0-99.0) L 03/08/20 13:25 FiO2 21 % 03/08/20 13:25 Sodium 140 mmol/L (137-145) 05/01/20 07:57 Potassium 4.6 mmol/L (3.6-5.0) 05/01/20 07:57 Chloride 101.7 mmol/L (98-107) 05/01/20 07:57 Carbon Dioxide 27 mmol/L (22-30) 05/01/20 07:57 Anion Gap 16 mmol/L 05/01/20 07:57 BUN 21 mg/dL (7-17) H 05/01/20 07:57 Creatinine 0.7 mg/dL (0.6-1.2) 05/01/20 07:57 Estimated GFR > 60 ml/min 05/01/20 07:57 BUN/Creatinine Ratio 30 % 05/01/20 07:57 Glucose 96 mg/dL (65-100) 05/01/20 07:57 POC Glucose 152 (70-105) H 05/09/20 11:36 Lactic Acid 1.80 mmol/L (0.7-2.0) 11/25/19 05:05 Calcium 10.6 mg/dL (8.4-10.2) H 05/01/20 07:57 Ionized Calcium 4.5 mg/dL (4.8-5.6) L 11/23/19 06:32 Phosphorus 4.20 mg/dL (2.5-4.5) D 11/28/19 08:59 Magnesium 1.90 mg/dL (1.7-2.3) 02/28/20 03:40 Total Bilirubin 0.40 mg/dL (0.1-1.2) 12/13/19 07:48 AST 27 units/L (5-40) 12/13/19 07:48 ALT 26 units/L (7-56) 12/13/19 07:48 Alkaline Phosphatase 316 units/L (35-129) H 12/13/19 07:48 Ammonia 42.0 umol/L (25-60) 11/29/19 13:41 Total Creatine Kinase 139 units/L (30-135) H 11/22/19 23:27 CK-MB (CK-2) 8.3 ng/mL (0.0-4.0) H 11/22/19 23:27 CK-MB (CK-2) Rel Index 5.9 (0-4) H 11/22/19 23:27 Troponin T < 0.010 ng/mL (0.00-0.029) 11/22/19 23:27 Total Protein 6.8 g/dL (6.3-8.2) 12/13/19 07:48 Albumin 2.4 g/dL (3.9-5) L 12/13/19 07:48 Albumin/Globulin Ratio 0.5 % 12/13/19 07:48 Lipase 18 units/L (13-60) 11/23/19 00:34 Procalcitonin 1.09 ng/mL (<0.15) 11/23/19 04:53 TSH 1.140 mlU/mL (0.270-4.200) 04/30/20 15:06 Free T4 1.08 ng/dL (0.76-1.46) 02/12/20 07:36 Urine Color Yellow (Yellow) 12/16/19 Unknown Urine Turbidity Slightly-cloudy (Clear) 12/16/19 Unknown Urine pH 5.0 (5.0-7.0) 12/16/19 Unknown Ur Specific [place] 1.018 (1.003-1.030) 12/16/19 Unknown Urine Protein 30 mg/dl mg/dL (Negative) 12/16/19 Unknown Urine Glucose (UA) Neg mg/dL (Negative) 12/16/19 Unknown Urine Ketones Neg mg/dL (Negative) 12/16/19 Unknown Urine Blood Sm (Negative) 12/16/19 Unknown Urine Nitrite Neg (Negative) 12/16/19 Unknown Urine Bilirubin Neg (Negative) 12/16/19 Unknown Urine Urobilinogen < 2.0 mg/dL (<2.0) 12/16/19 Unknown Ur Leukocyte Esterase Neg (Negative) 12/16/19 Unknown Urine WBC (Auto) 6.0 /HPF (0.0-6.0) 12/16/19 Unknown Urine RBC (Auto) 9.0 /HPF (0.0-6.0) 12/16/19 Unknown U Epithel Cells (Auto) < 1.0 /HPF (0-13.0) 12/16/19 Unknown Urine Bacteria (Auto) 2+ /HPF (Negative) 11/22/19 23:17 Hyaline Casts 3 /LPF 12/16/19 Unknown Granular Casts 3 /LPF 12/16/19 Unknown Urine Mucus Few /HPF 12/16/19 Unknown Vancomycin Trough 33.8 ug/mL (5.0-20.0) H 12/21/19 08:56 Random Vancomycin 16.2 ug/mL (0-40.0) 12/24/19 04:31 Salicylates < 0.3 mg/dL (2.8-20.0) L 11/22/19 23:27 Urine Opiates Screen Presumptive negative 11/22/19 23:17 Urine Methadone Screen Presumptive negative 11/22/19 23:17 Acetaminophen < 5.0 ug/mL (10.0-30.0) L 11/22/19 23:27 Ur Barbiturates Screen Presumptive negative 11/22/19 23:17 Ur Phencyclidine Scrn Presumptive negative 11/22/19 23:17 Ur Amphetamines Screen Presumptive negative 11/22/19 23:17 U Benzodiazepines Scrn Presumptive negative 11/22/19 23:17 Urine Cocaine Screen Presumptive negative 11/22/19 23:17 U Marijuana (THC) Screen Presumptive negative 11/22/19 23:17 Drugs of Abuse Note Disclamer 11/22/19 23:17 Plasma/Serum Alcohol 0.08 % (0-0.07) H 11/22/19 23:27 Coronavirus (PCR) Negative (Negative) 05/17/20 Unknown Hepatitis A IgM Ab Non-reactive (NonReactive) 11/23/19 01:19 Hep Bs Antigen Non-reactive (Negative) 11/23/19 01:19 Hep B Core IgM Ab Non-reactive (NonReactive) 11/23/19 01:19 Hepatitis C Antibody Non-reactive (NonReactive) 11/23/19 01:19 Blood Type O POSITIVE 12/21/19 14:54 Antibody Screen Negative 12/21/19 14:54 Crossmatch See Detail 12/21/19 14:54 - Diagnostic Impressions Diagnostic Impressions: Echocardiogram 11/23/19 03:58 Transthoracic Echocardiogram Indication: Cardiac arrest BP: 131/89 HR: 115 Conclusions *The study quality is technically difficult. *Global left ventricular wall motion and contractility are within normal limits. *The estimated ejection fraction is 55-60%. *Abnormal left ventricular diastolic filling is observed, consistent with impaired relaxation. *There is no pericardial effusion. Findings Procedure Info: The study quality is technically difficult. The study was technically limited due to the patient's inability to lay in the left lateral decubitus position. Left Ventricle: The left ventricular chamber size is normal. There is no left ventricular hypertrophy. Global left ventricular wall motion and contractility are within normal limits. Global left ventricular systolic function is normal. The estimated ejection fraction is 55-60%. Abnormal left ventricular diastolic filling is observed, consistent with impaired relaxation. Left Atrium: The left atrial chamber size is normal. Aortic Valve: The aortic valve leaflets are mildly thickened. Mitral Valve: The mitral valve leaflets are mildly thickened. There is no evidence of mitral regurgitation. Tricuspid Valve: The tricuspid valve leaflets are normal. There is trace tricuspid regurgitation. The right ventricular systolic pressure is calculated at 33 mmHg. Pulmonic Valve: The pulmonic valve appears normal. Pericardium: The pericardium appears normal. There is no pericardial effusion. Aorta: The aorta appears normal. Venous: The inferior vena cava appears normal in size. Measurements Chambers 2D Name Value Normal Range IVSd (2D) 0.94 cm (0.6 - 1.1) LVPWd (2D) 0.81 cm (0.6 - 1.1) LVIDd (2D) 3.6 cm (3.7 - 5.6) LVIDs (2D) 2.27 cm (2 - 3.8) LV FS (2D) 36.93 % - EF Teichholz (2D) 67.76 % - Ao root diameter (2D) 3.03 cm (2 - 3.7) Volumes/Mass Name Value Normal Range LA ESV SP 4CH (A/L) 16.89 ml - LA ESV SP 4CH (MOD) 15.52 ml - Diastolic/Systolic Function Name Value Normal Range MV E-wave Vmax 0.55 m/sec - MV deceleration time 200.89 msec - MV A-wave Vmax 0.68 m/sec - MV E:A ratio 0.82 ratio - Aortic Valve Name Value Normal Range AV Vmax 1.1 m/sec - AV VTI 15.9 cm - AV peak gradient 4.86 mmHg - AV mean gradient 2.59 mmHg - LVOT diameter 2 cm - LVOT Vmax 1.03 m/sec - LVOT VTI 15.87 cm - LVOT peak gradient 4.24 mmHg - LVOT mean gradient 2.41 mmHg - SV LVOT 49.77 ml - JOSÉ MIGUEL (continuity Vmax) 2.93 cm2 - JOSÉ MIGUEL (continuity VTI) 3.13 cm2 - Tricuspid Valve Name Value Normal Range TR Vmax 2.74 m/sec - TR peak gradient 303 mmHg - RAP 3 mmHg - RVSP 33 mmHg - IVC diameter 1.77 cm (1.2 - 2.3) Pulmonic Valve/Qp:Qs Name Value Normal Range PV Vmax 0.77 m/sec - PV peak gradient 2.4 mmHg - PV acceleration time 114.18 msec - Echocardiogram Limited Views 12/17/19 14:53 Transthoracic Echocardiogram Indication: R/O Vegetations BP: 144/83 HR: 133 Conclusions *Global left ventricular systolic function is mildly decreased. *The estimated ejection fraction is 45-50%. *A trivial pericardial effusion is visualized. Findings Left Ventricle: The left ventricular chamber size is normal. Global left ventricular systolic function is mildly decreased. The estimated ejection fraction is 45-50%. Left Atrium: The left atrial chamber size is normal. Right Ventricle: The right ventricular cavity size is normal. Right Atrium: The right atrial cavity size is normal. Aortic Valve: The aortic valve is not well visualized. There is no evidence of aortic regurgitation. Mitral Valve: The mitral valve leaflets are mildly thickened. There is trace of mitral regurgitation. Tricuspid Valve: The tricuspid valve leaflets are mildly thickened. There is trace tricuspid regurgitation. The right ventricular systolic pressure is calculated at 29 mmHg. Pulmonic Valve: The pulmonic valve is not well visualized. There is no evidence of pulmonic regurgitation. Pericardium: A trivial pericardial effusion is visualized. Aorta: There is no dilatation of the ascending aorta. There is no dilatation of the aortic root. Venous: The inferior vena cava appears normal in size. There is a greater than 50% respiratory change in the inferior vena cava dimension. Measurements Chambers 2D Name Value Normal Range IVSd (2D) 0.83 cm (0.6 - 1.1) LVPWd (2D) 0.98 cm (0.6 - 1.1) LVIDd (2D) 3.71 cm (3.7 - 5.6) LVIDs (2D) 2.93 cm (2 - 3.8) LV FS (2D) 21.12 % - EF Teichholz (2D) 43.71 % - Ao root diameter (2D) 3.02 cm (2 - 3.7) Volumes/Mass Name Value Normal Range LA ESV SP 4CH (A/L) 36.8 ml - LA ESV SP 2CH (A/L) 45.89 ml - LA ESV BP (A/L) 42.35 ml - LA ESV BP (A/L) index 26.63 ml/m2 - LA ESV SP 4CH (MOD) 34.42 ml - LA ESV SP 2CH (MOD) 44.21 ml - LA ESV BP (MOD) 39.82 ml - LA ESV BP (MOD) index 25.05 ml/m2 - Aortic Valve Name Value Normal Range LVOT diameter 1.63 cm - Tricuspid Valve Name Value Normal Range TR Vmax 2.56 m/sec - TR peak gradient 26 mmHg - RAP 3 mmHg - RVSP 29 mmHg - IVC diameter 1.83 cm (1.2 - 2.3) Dela Cruz/IV: Voiding Method Incontinent IV Catheter Type [Forearm] Peripheral IV IV Catheter Type [Left Forearm INT / Saline Lock ] IV Catheter Type [Right INT / Saline Lock Antecubital] IV Catheter Type [Right Hand] INT / Saline Lock IV Catheter Type [Right Wrist] Peripheral IV IV Catheter Type [Left Wrist] Peripheral IV IV Catheter Type [Left Peripheral IV Antecubital] IV Catheter Type [Right INT / Saline Lock Forearm] IV Catheter Type [Left Hand] INT / Saline Lock Active Medications - Current Medications Current Medications: Generic Name Dose Route Start Last Admin Trade Name Freq PRN Reason Stop Dose Admin Albuterol 2.5 mg 03/25/20 19:25 04/07/20 08:59 Proventil IH 2.5 mg Q4HRT PRN Administration Shortness Of Breath Enoxaparin Sodium 40 mg 03/07/20 22:00 05/17/20 21:08 Enoxaparin SUB-Q 40 mg QDAY@2200 LUCHO Administration Folic Acid 1 mg 04/27/20 10:00 05/17/20 10:35 Folvite PO 1 mg QDAY LUCHO Administration Guaifenesin 10 ml 04/28/20 05:11 05/15/20 20:53 Guaifenesin Dm Syrup PO 10 ml Q6H PRN Administration Cough Hydroxyzine Pamoate 25 mg 12/06/19 10:00 05/17/20 21:08 Vistaril PO 25 mg BID LUCHO Administration Lansoprazole 30 mg 11/27/19 10:00 05/17/20 10:35 Prevacid Solutab FEEDTUBE 30 mg QDAY LUCHO Administration Levetiracetam 500 mg 11/29/19 10:00 05/17/20 21:08 Keppra PO 500 mg BID LUCHO Administration Lorazepam 1 mg 05/08/20 22:00 05/17/20 21:08 Ativan PO 1 mg QHS LUCHO Administration Mirtazapine 30 mg 12/06/19 10:00 05/17/20 10:35 Remeron PO 30 mg DAILY LUCHO Administration Nicotine 21 mg 02/16/20 13:00 05/17/20 10:35 Habitrol TD 21 mg QDAY LUCHO Administration Scopolamine 1 each 02/08/20 15:00 05/17/20 10:35 Transderm-Scop TD 1 each Q3D LUCHO Administration Sertraline HCl 25 mg 01/01/20 10:00 05/17/20 10:35 Zoloft PO 25 mg QDAY LUCHO Administration Nutrition/Malnutrition Assess - Dietary Evaluation Nutrition/Malnutrition Findings: Nutrition Notes Start: 11/23/19 11:29 Freq: Status: Active Protocol: Document 04/23/20 14:33 EVELIA (Rec: 04/23/20 14:35 [id number]) Nutrition Notes Initial or Follow up Reassessment Other Pertinent Diagnosis s/p Cardiac arrest, acute metabolic encephalopathy Current Diet Mech soft with chopped meats Labs/Tests Reviewed Pertinent Medications Reviewed Height 5 ft 6 in Weight 43.5 kg [place] Body Weight (kg) 59.09 BMI 15.5 Subjective/Other Information Pt has consumed 79% of meals since last assessment. Percent of energy/protein needs met: 100% energy 100% pro Burn Absent Trauma Absent Current % PO Good (75-100%) #2 Nutrition Diagnosis Malnutrition Diagnosis Progress(for reassessment Continues documentation) Is patient on ventilator? No Is Patient Ambulatory and/or Out of Bed No REE-([facility]-confined to bed) 1260.864 Kcal/Kg value to use for calculation 35 Approximate Energy Requirements Using 1523 kcal/Kg Calculation Used for Recommendations Kcal/kg Additional Notes Pro needs 1.2-1.5g/k-65g/ day Fluid needs 1ml/kcal Nutrition Intervention Goal #1 PO intake of meals plus ONS to meet 100% energy and pro needs Goal #2 Wt maintenance and/or gain Revisit per MD consult or patient Sign Off request:
[2020-05-18] MEDS: levETIRAcetam 500 MG/5 ML ORAL LIQD PO SCH ×2 (11:41→21:45)
[2020-05-18] MEDS: FOLIC ACID 1 MG TAB PO SCH (11:41)
[2020-05-18] MEDS: SERTRALINE 50 MG TAB PO SCH (11:41)
[2020-05-18] MEDS: hydrOXYzine PAMOATE 25 MG CAP PO SCH ×2 (11:42→21:46)
[2020-05-18] MEDS: MIRTAZAPINE 30 MG TAB PO SCH (11:42)
[2020-05-18] MEDS: LANSOPRAZOLE 30 MG SOLUTAB FEEDTUBE SCH (11:42)
[2020-05-18] MEDS: NICOTINE 21 MG/24 HR PATCH TD SCH (11:46)
[2020-05-18] MEDS: LORazepam 1 MG TAB PO SCH (21:45)
[2020-05-18] MEDS: ENOXAPARIN 40 MG/0.4 ML INJ SUB-Q SCH (21:45)
--- NOTE | 2020-05-19 09:09 | Discharge Summary ---
Providers - Providers Date of Admission: 11/23/19 01:40 Attending physician: GOPAL DOBBINS MD 11/22/19 23:23 Consult to Dietitian/Nutrition [CONS] Routine Physician Instructions: Reason For Exam: Reason for Consult: Evaluate nutritional intake 11/23/19 02:30 Consult to Physician [CONS] Urgent Comment: Consulting Provider: TENA CORONA Physician Instructions: Reason For Exam: s/p cardiac arrest 11/24/19 13:03 Consult to Physician [CONS] Routine Comment: Consulting Provider: JANICE ADAMS Physician Instructions: Reason For Exam: fevers, sepsis, post cardiac arrest 11/24/19 13:04 Consult to Physician [CONS] Routine Comment: Consulting Provider: MIGNON LIVE Physician Instructions: Reason For Exam: post cardiac arrest, encephalopathy 12/05/19 19:39 Consult to Physician [CONS] Routine Comment: Consulting Provider: SIMONA ARITA Physician Instructions: Reason For Exam: trach and PEG 12/14/19 11:46 Consult to Physician [CONS] Routine Comment: Consulting Provider: JEFFERY STEVENS Physician Instructions: I notified Reason For Exam: re-consult for fevers after trach and PEG 12/18/19 12:12 Consult to Case Management [CONS] Stat Services Needed at Discharge: 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 Keep vancomycin trough 10-20. Labs CBC, creat, CRP, vancomycin trough weekly. Fax labs to [phone] Janice Nicolas MD 01/01/20 13:37 Physical Therapy Evaluation and Treat [CONS] Routine Comment: Reason For Exam: placement 01/14/20 17:43 Consult to Wound/ET Nurse [CONS] Routine Reason For Exam: wound eval 01/15/20 07:45 Consult to Wound/ET Nurse [CONS] Routine Reason For Exam: wound eval of sacrum 01/16/20 13:23 Speech Therapy Eval for Passy-Alena Valve [CONS] Urgent Reason For Exam: trach needing speaking valve Speech Therapy Evaluation and Treat [CONS] Urgent Reason For Exam: trach needing speaking valve 01/26/20 00:49 Consult to Wound/ET Nurse [CONS] Routine Reason For Exam: sacral wound eval 01/27/20 12:18 Consult to Wound/ET Nurse [CONS] Urgent Reason For Exam: wound eval 01/28/20 21:18 Consult to Wound/ET Nurse [CONS] Routine Reason For Exam: wound eval for trach redness and pressure sore 02/09/20 02:15 Consult to Wound/ET Nurse [CONS] Urgent Reason For Exam: for trach dressing groves 02/10/20 10:05 Consult to Wound/ET Nurse [CONS] Urgent Reason For Exam: wound eval 02/13/20 13:19 Consult to Mental Health [CONS] Routine Reason For Exam: Anxiety 03/07/20 09:49 Consult to Wound/ET Nurse [CONS] Urgent Reason For Exam: wound eval under tracheostomy 03/28/20 12:50 Physical Therapy Evaluation and Treat [CONS] Routine Comment: Reason For Exam: eval 03/28/20 12:51 Speech Therapy Evaluation and Treat [CONS] Routine Reason For Exam: eval 04/01/20 14:40 Physical Therapy Evaluation and Treat [CONS] Routine Comment: Reason For Exam: DECREASED MOBILITY 04/25/20 11:10 Consult to Physician [CONS] Routine Comment: Consulting Provider: MARK LIVE Physician Instructions: Reason For Exam: TATIANA 04/30/20 18:33 Consult to Physician [CONS] Routine Comment: Reorder Consulting Provider: MARK LIVE Physician Instructions: Reason For Exam: AMS Primary care physician: AIRCRAFT MAINTENANCE TECHNICIAN Hospitalization Reason for admission: Acute respiratory failure Condition: Stable Hospital course: 54-year-old female with a past medical history of Hypertension, Depression, Tobacco use Disorder, Alcohol use Disorder as confirmed by Daughter and pt's mother presents to the hospital status post cardiac arrest at home. EMS found pt in [place]. They were unable to intubate patient with a ET tube because she was clenching down therefore Joe airway placed. Per the ED physician who evaluated pt, Patient presented with a pulse, intermittent respirations, and bagging support via Joe airway with O2 sat of 100%. Accu-Chek of 71 obtained by EMS. She was intubated in the ER and called for admission. Following admission patient was diagnosed with anoxic brain injury, sepsis with MRSA bacteremia and MSSA pneumonia, alcoholic liver disease. Family member initially wished for full code then changed to DNR, patient treated with IV antibiotics for sepsis, status post trach and PEG on 12/13/19. Weaned off from the vent and put on T- piece. Patient is uninsured, waiting for placement, guarded prognosis. 03/07: Returning to service no acute changes are noted. Continue current management while awaiting placement. Intermittent labs. Base of neck also around tracheostomy tube preventing downgrading. Continue appropriate wound care. 03/08: Plan of care unchanged continues on aerosol trach collar 28% of oxygen. Continue wound care management placement still pending status decision. 03/09: Continue current treatment plan. Continue aspiration precaution 03/10: Continue current management, Restraints as patient still pulling, awaiting placement 03/11: Continue supportive care, intermittent suctioning and pulmonary toilet. awaiting placement. 03/12: Continue supportive care, Give a bolus of fluids due to Hypercalcemia, Monitor Hyperkalemia with labs in am, No arrhythmia. Patient vomiting, concern for aspiration, Chest xray ordered and no active disease noted. Keep HOB >45% 03/13: No evidence of aspiration on xray. Continue supportive care. 03/14: Continue supportive care. Capping trials to start. Discussed with patients nursing and case management to continue daily PT by the Rehab team. 03/15: Discussed again with staff to start capping trial. 03/16: Do not see any indication the capping trial has started will discuss with respiratory therapist. Continue restraints. Still awaiting family decision patient has had some remarkable improvement considering the fact that she was able to stay around night without restraints. We will continue daily trial of this method. Discussed plan with nursing staff 03/17: Continue current care. Currently continue restraints. Continue current management. Continue physical therapy daily. 03/18: Capping trial successful and will possibly get decannulated today. Continue placement. 03/19: Now decannulated and doing well. Begin discharge planning. 03/20: Stable, no new complaints. 03/21: No new complaints. Continue supportive 03/22: No new complaints, still with some confusion, and agitation requiring restraints. Will require daily PT/OT and continue to work with Case management for placement 03/23: continue current management, daily PT/OT. stoma care. No new seizure, slow but gradual improvement noted daily 03/24: Mr. Amaya is a 55-year-old female who presented to the hospital was admitted post cardiac arrest at home she has remarkably done well been extubated and decannulated with stoma healing. She still does experience some intermittent delirious process and as a result is on restraints. I have discussed with nursing staff to see if they can provide a sitter for her and continue daily PT as this will aid in reintroducing her to the community. Case management is working on placement for her. Will check labs in a.m. 04/29: Returning to services, please see other notes. Patient stable and continues to improve. STILL WITH ALTERED MENTAL STATUS, SHE STILL REQUIRES RESTRAINTS, CASE MANAGEMENT WORKING ON PLACEMENT 04/30: Clinically stable continue to monitor still with altered sensorium still awaiting placement. Will check intermittent labs. 05/02: Patient was seen by neurologist no new information noted no further recommendation recommended. Patient continues to be alert but still confused. Remains on restraints for the same reason. Continue daily restrain break while monitoring for fall. Sclera status remains stable. 05/03: At this time is safe to say that she does have dementia from anoxic brain injury although has periods of lucidness. We will continue current management. Discussed with case management about possible guardianship. As family is not willing to take the patient home. 05/04: Monitor tachycardia worse continue supportive care. 05/05: No clinical change, continues to require Restraints due to resulting Dementia and impulsive movements. Pending placement. 05/13: No clinical change continue current treatment continue restraints with intermittent break while awaiting placement, patient still with delirium due to underlying dementia probably from hypoxic anoxic brain injury. 05/14: Continue current care. Restraints renewed. Agree with physical therapy. 05/15: Continue current management. Awaiting case management input. 05/16: Clinically stable, continue current management. PERSONAL SKILLED NURSING ACCEPTING THE PATIENT AND WILL MANAGE CARE ALONG WITH FAMILY 05/19: Over the weekend no changes were made. Awaiting [facility] to accpt the patient, planned acceptance today once all other CM and SW related issues are resolved. Case was discussed with surgeon who recommends that PEG tube not be removed at this time. Instructions on PEG tube management site provided by nursing staff to receiving agents / Anoxic brain injury: suspected CT head: No acute abnormality. EEG ordered showed Generalized slowing. No seizures or epileptiform activity. -Patient now opening her eyes, can speak and able to follow command - as needed haldol for agitation /Acute Respiratory failure - due to MSSA PNA -s/p intubation, s/p trach and PEG on 12/12 with mechanical ventilation, s/p T- piece, now on RA - CTA was done and negative for PE, - Echo quality is poor, showed diastolic dysfunction /Anemia, microcytic - Status post 3 units PRBC transfusion, H&H low stable /Acute metabolic encephalopathy/toxic encephalopathy due to the above - cont supportive care /Hyperammonemia - likely from liver disease related to EtOH abuse - Patient had elevated ammonia level and treated with lactulose /Metabolic Acidosis -Alcohol ketoacidosis vs hypoprofusion -Continue to monitor /ELevated LFTs, stable now - due to ischemic hepatitis. /Leucocytosis with sepsis - Source MRSA bacteremia and MSSA pneumonia. UA showed pyuria. RUQ US showed no ascites. - Repeat TTE negative for vegetation. Completed 7 days of Ceftriaxone on 11/29/2019. -Treated with Abx vancomycin 1 gm IV q 12 hour total 2 week till 12/30/2019 /MSSA pneumonia: Status post vancomycin till 12/30/2019 /ALcohol USe Disorder - given ongoing Alcohol use almost daily, s/p IV Thiamine - monitor /Severe hypokalemia -Repleted /Seizure disorder: treat with Keppra /H. Influenzae, tracheobronchitis, treated with abx /Moderate to severe fecal impaction - added stool softner DNR CODE STATUS Disposition: [id number]/[place]-06 HOME UNDER HOME [facility] Time spent for discharge: 35 MINS Core Measure Documentation - Palliative Care Palliative Care/ Comfort Measures: Not Applicable - Core Measures Any of the following diagnoses?: none Exam - Physical Exam Narrative exam: General appearance: Present: Appears older than stated age, lying down, still on restraints - EENT Eyes: no scleral icterus, no conjunctival injection, pupil not reactive ENT: clear oral mucosa, dentition normal, no oropharyngeal erythema Ears: bilateral: normal - Neck Neck: stoma clena and dry - Respiratory Respiratory effort: other dressing over the stoma Respiratory: bilateral: rales - Cardiovascular Rhythm: Mildly tachycardic Heart Sounds: Present: S1 & S2. Absent: gallop, rub Extremities: pulses intact, No edema, normal color - Gastrointestinal General gastrointestinal: Present: soft, non-tender, non-distended, normal bowel sounds. PEG tube site is clean - Integumentary Integumentary: clear, warm, dry - Musculoskeletal Musculoskeletal: No joint swelling or tenderness - Neurologic Neurologic: other (2+ reflexes throughout). respond to commend answers questions appropriately today - Psychiatric Psychiatric: co-operative - Constitutional Vitals: Temp Pulse Resp BP Pulse Ox 98.0 F 86 18 133/90 100 05/19/20 08:40 05/19/20 08:40 05/19/20 08:40 05/19/20 08:40 05/19/20 08:40 Plan Activity: advance as tolerated, fall precautions Diet: low fat Wound: per your surgeon's advice, per wound nurse instructions Special Instructions: record daily weights, record daily BP diary Follow up with: RITCHIE RAI MD [Staff Physician] - 7 Days JANICE ADAMS MD [Staff Physician] - 7 Days PRIMARY CARE, [Primary Care Provider] - 3-5 Days MARINO BUSTOS MD [Staff Physician] - 7 Days Prescriptions: LORazepam [Ativan] 1 mg PO QHS #30 tablet Mirtazapine [Remeron 30mg Rapdis] 30 mg PO QHS #30 tab.rapdis Folic Acid [Folvite] 1 mg PO QDAY #30 tablet guaiFENesin DM [Guaifenesin Dm Syrup] 10 ml PO Q6H PRN #14 oral.liqd PRN Reason: Cough Nicotine [Habitrol] 21 mg TD QDAY #14 patch levETIRAcetam [Keppra] 500 mg PO BID 30 Days udc Lansoprazole Solutab [Prevacid Solutab] 30 mg PO QDAY #30 tab hydrOXYzine PAMOATE [Vistaril] 25 mg PO BID #60 capsule
[2020-05-19] MEDS: SERTRALINE 50 MG TAB PO SCH (09:16)
[2020-05-19] MEDS: LANSOPRAZOLE 30 MG SOLUTAB FEEDTUBE SCH (09:16)
[2020-05-19] MEDS: levETIRAcetam 500 MG/5 ML ORAL LIQD PO SCH ×2 (09:16→21:44)
[2020-05-19] MEDS: NICOTINE 21 MG/24 HR PATCH TD SCH (09:16)
[2020-05-19] MEDS: FOLIC ACID 1 MG TAB PO SCH (09:16)
[2020-05-19] MEDS: MIRTAZAPINE 30 MG TAB PO SCH (09:17)
[2020-05-19] MEDS: hydrOXYzine PAMOATE 25 MG CAP PO SCH ×2 (09:17→21:44)
[2020-05-19] MEDS: LORazepam 1 MG TAB PO SCH (21:44)
[2020-05-19] MEDS: ENOXAPARIN 40 MG/0.4 ML INJ SUB-Q SCH (21:44)
--- NOTE | 2020-05-20 10:21 | Progress Note ---
Assessment and Plan Assessment and plan: 54-year-old female with a past medical history of Hypertension, Depression, Tobacco use Disorder, Alcohol use Disorder as confirmed by Daughter and pt's mother presents to the hospital status post cardiac arrest at home. EMS found pt in [facility]. They were unable to intubate patient with a ET tube because she was clenching down therefore Joe airway placed. Per the ED physician who evaluated pt, Patient presented with a pulse, intermittent respirations, and bagging support via Joe airway with O2 sat of 100%. Accu-Chek of 71 obtained by EMS. She was intubated in the ER and called for admission. Following admission patient was diagnosed with anoxic brain injury, sepsis with MRSA bacteremia and MSSA pneumonia, alcoholic liver disease. Family member initially wished for full code then changed to DNR, patient treated with IV antibiotics for sepsis, status post trach and PEG on 12/13/19. Weaned off from the vent and put on T- piece. Patient is uninsured, waiting for placement, guarded prognosis. 03/07: Returning to service no acute changes are noted. Continue current management while awaiting placement. Intermittent labs. Base of neck also around tracheostomy tube preventing downgrading. Continue appropriate wound care. 03/08: Plan of care unchanged continues on aerosol trach collar 28% of oxygen. Continue wound care management placement still pending status decision. 03/09: Continue current treatment plan. Continue aspiration precaution 03/10: Continue current management, Restraints as patient still pulling, awaiting placement 03/11: Continue supportive care, intermittent suctioning and pulmonary toilet. awaiting placement. 03/12: Continue supportive care, Give a bolus of fluids due to Hypercalcemia, Monitor Hyperkalemia with labs in am, No arrhythmia. Patient vomiting, concern for aspiration, Chest xray ordered and no active disease noted. Keep HOB >45% 03/13: No evidence of aspiration on xray. Continue supportive care. 03/14: Continue supportive care. Capping trials to start. Discussed with patients nursing and case management to continue daily PT by the Rehab team. 03/15: Discussed again with staff to start capping trial. 03/16: Do not see any indication the capping trial has started will discuss with respiratory therapist. Continue restraints. Still awaiting family decision patient has had some remarkable improvement considering the fact that she was able to stay around night without restraints. We will continue daily trial of this method. Discussed plan with nursing staff 03/17: Continue current care. Currently continue restraints. Continue current management. Continue physical therapy daily. 03/18: Capping trial successful and will possibly get decannulated today. Continue placement. 03/19: Now decannulated and doing well. Begin discharge planning. 03/20: Stable, no new complaints. 03/21: No new complaints. Continue supportive 03/22: No new complaints, still with some confusion, and agitation requiring restraints. Will require daily PT/OT and continue to work with Case management for placement 03/23: continue current management, daily PT/OT. stoma care. No new seizure, slow but gradual improvement noted daily 03/24: Mr. Amaya is a 55-year-old female who presented to the hospital was admitted post cardiac arrest at home she has remarkably done well been extubated and decannulated with stoma healing. She still does experience some intermittent delirious process and as a result is on restraints. I have discussed with nursing staff to see if they can provide a sitter for her and continue daily PT as this will aid in reintroducing her to the community. Case management is working on placement for her. Will check labs in a.m. 04/29: Returning to services, please see other notes. Patient stable and continues to improve. STILL WITH ALTERED MENTAL STATUS, SHE STILL REQUIRES RESTRAINTS, CASE MANAGEMENT WORKING ON PLACEMENT 04/30: Clinically stable continue to monitor still with altered sensorium still awaiting placement. Will check intermittent labs. 05/02: Patient was seen by neurologist no new information noted no further recommendation recommended. Patient continues to be alert but still confused. Remains on restraints for the same reason. Continue daily restrain break while monitoring for fall. Sclera status remains stable. 05/03: At this time is safe to say that she does have dementia from anoxic brain injury although has periods of lucidness. We will continue current management. Discussed with case management about possible guardianship. As family is not willing to take the patient home. 05/04: Monitor tachycardia worse continue supportive care. 05/05: No clinical change, continues to require Restraints due to resulting Dementia and impulsive movements. Pending placement. 05/13: No clinical change continue current treatment continue restraints with intermittent break while awaiting placement, patient still with delirium due to underlying dementia probably from hypoxic anoxic brain injury. 05/14: Continue current care. Restraints renewed. Agree with physical therapy. 05/15: Continue current management. Awaiting case management input. 05/16: Clinically stable, continue current management 05/17: Awaiting placement, was discharged yesterday but per records medication was not available. 05/18: Clinically stable. awaiting placement, Restraints reassessed 05/20: Patient clinically stable, awaiting discharge, did not leave yesterday as planned due to emergency with the new vision care associate. I understand leaving today. Has been off restriants for the past 24 hrs. Again, surgery recommended not removing PEG tube. / Anoxic brain injury: suspected CT head: No acute abnormality. EEG ordered showed Generalized slowing. No seizures or epileptiform activity. -Patient now opening her eyes, can speak and able to follow command - as needed haldol for agitation /Acute Respiratory failure - due to MSSA PNA -s/p intubation, s/p trach and PEG on 12/12 with mechanical ventilation, s/p T- piece, now on RA - CTA was done and negative for PE, - Echo quality is poor, showed diastolic dysfunction /Anemia, microcytic - Status post 3 units PRBC transfusion, H&H low stable /Acute metabolic encephalopathy/toxic encephalopathy due to the above - cont supportive care /Hyperammonemia - likely from liver disease related to EtOH abuse - Patient had elevated ammonia level and treated with lactulose /Metabolic Acidosis -Alcohol ketoacidosis vs hypoprofusion -Continue to monitor /ELevated LFTs, stable now - due to ischemic hepatitis. /Leucocytosis with sepsis - Source MRSA bacteremia and MSSA pneumonia. UA showed pyuria. RUQ US showed no ascites. - Repeat TTE negative for vegetation. Completed 7 days of Ceftriaxone on 11/29/2019. -Treated with Abx vancomycin 1 gm IV q 12 hour total 2 week till 12/30/2019 /MSSA pneumonia: Status post vancomycin till 12/30/2019 /ALcohol USe Disorder - given ongoing Alcohol use almost daily, s/p IV Thiamine - monitor /Severe hypokalemia -Repleted /Seizure disorder: treat with Keppra /H. Influenzae, tracheobronchitis, treated with abx /Moderate to severe fecal impaction - added stool softner DNR CODE STATUS Disposition: prognosis guarded. Family okay for DNR, PT recommended subacute rehab, discharge pending on placement. negative for COVID 19. Patient remains pleasantly confused and incoherent. History Interval history: Patient seen and examined, resting comfortable. No new complaints. off restraints Hospitalist Physical - Physical exam Narrative exam: General appearance: Present: Appears older than stated age, lying down, - EENT Eyes: no scleral icterus, no conjunctival injection, pupil not reactive ENT: clear oral mucosa, dentition normal, no oropharyngeal erythema Ears: bilateral: normal - Neck Neck: stoma clena and dry - Respiratory Respiratory effort: other dressing over the stoma Respiratory: bilateral: rales - Cardiovascular Rhythm: Mildly tachycardic Heart Sounds: Present: S1 & S2. Absent: gallop, rub Extremities: pulses intact, No edema, normal color - Gastrointestinal General gastrointestinal: Present: soft, non-tender, non-distended, normal bowel sounds. PEG tube site is clean - Integumentary Integumentary: clear, warm, dry - Musculoskeletal Musculoskeletal: No joint swelling or tenderness - Neurologic Neurologic: other (2+ reflexes throughout). respond to commend answers questions appropriately today - Psychiatric Psychiatric: co-operative - Constitutional Vitals: Temp Pulse Resp BP Pulse Ox 98.6 F 86 20 118/76 100 05/20/20 03:49 05/20/20 07:50 05/20/20 08:54 05/20/20 08:54 05/20/20 07:50 General appearance: Present: no acute distress HEART Score - HEART Score Troponin: Troponin T < 0.010 ng/mL (0.00-0.029) 11/22/19 23:27 Results - Labs CBC & Chem 7: 05/01/20 07:57 05/01/20 07:57 Labs: Laboratory Last Values WBC 6.8 K/mm3 (4.5-11.0) 05/01/20 07:57 RBC 3.90 M/mm3 (3.65-5.03) 05/01/20 07:57 Hgb 11.4 gm/dl (10.1-14.3) 05/01/20 07:57 Hct 34.9 % (30.3-42.9) 05/01/20 07:57 MCV 90 fl (79-97) 05/01/20 07:57 MCH 29 pg (28-32) 05/01/20 07:57 MCHC 33 % (30-34) 05/01/20 07:57 RDW 14.5 % (13.2-15.2) 05/01/20 07:57 Plt Count 498 K/mm3 (140-440) H 05/01/20 07:57 Lymph % (Auto) 25.9 % (13.4-35.0) 04/16/20 09:02 [place] % (Auto) 7.4 % (0.0-7.3) H 04/16/20 09:02 Eos % (Auto) 0.9 % (0.0-4.3) 04/16/20 09:02 Baso % (Auto) 0.8 % (0.0-1.8) 04/16/20 09:02 Lymph # 1.7 K/mm3 (1.2-5.4) 04/16/20 09:02 Dupage # 0.5 K/mm3 (0.0-0.8) 04/16/20 09:02 Eos # 0.1 K/mm3 (0.0-0.4) 04/16/20 09:02 Baso # 0.1 K/mm3 (0.0-0.1) 04/16/20 09:02 Add Manual Diff Complete 12/25/19 03:47 Total Counted 200 12/25/19 03:47 Seg Neutrophils % 65.0 % (40.0-70.0) 04/16/20 09:02 Seg Neuts % (Manual) 97.5 % (40.0-70.0) H 12/25/19 03:47 Band Neutrophils % 0 % 12/25/19 03:47 Lymphocytes % (Manual) 1.0 % (13.4-35.0) L 12/25/19 03:47 Reactive Lymphs % (Man) 0 % 12/25/19 03:47 Monocytes % (Manual) 1.5 % (0.0-7.3) 12/25/19 03:47 Eosinophils % (Manual) 0 % (0.0-4.3) 12/25/19 03:47 Basophils % (Manual) 0 % (0.0-1.8) 12/25/19 03:47 Metamyelocytes % 0 % 12/25/19 03:47 Myelocytes % 0 % 12/25/19 03:47 Promyelocytes % 0 % 12/25/19 03:47 Blast Cells % 0 % 12/25/19 03:47 Nucleated RBC % Not Reportable 12/25/19 03:47 Seg Neutrophils # 4.4 K/mm3 (1.8-7.7) 04/16/20 09:02 Seg Neutrophils # Man 35.3 K/mm3 (1.8-7.7) H 12/25/19 03:47 Band Neutrophils # 0.0 K/mm3 12/25/19 03:47 Lymphocytes # (Manual) 0.4 K/mm3 (1.2-5.4) L 12/25/19 03:47 Abs React Lymphs (Man) 0.0 K/mm3 12/25/19 03:47 Monocytes # (Manual) 0.5 K/mm3 (0.0-0.8) 12/25/19 03:47 Eosinophils # (Manual) 0.0 K/mm3 (0.0-0.4) 12/25/19 03:47 Basophils # (Manual) 0.0 K/mm3 (0.0-0.1) 12/25/19 03:47 Metamyelocytes # 0.0 K/mm3 12/25/19 03:47 Myelocytes # 0.0 K/mm3 12/25/19 03:47 Promyelocytes # 0.0 K/mm3 12/25/19 03:47 Blast Cells # 0.0 K/mm3 12/25/19 03:47 Pathologist Review 12/13/19 07:48 WBC Morphology Not Reportable 12/25/19 03:47 Hypersegmented Neuts Not Reportable 12/25/19 03:47 Hyposegmented Neuts Not Reportable 12/25/19 03:47 Hypogranular Neuts Not Reportable 12/25/19 03:47 Smudge Cells Not Reportable 12/25/19 03:47 Toxic Granulation Not Reportable 12/25/19 03:47 Toxic Vacuolation Not Reportable 12/25/19 03:47 Dohle Bodies Not Reportable 12/25/19 03:47 Pelger-Huet Anomaly Not Reportable 12/25/19 03:47 Dominique Rods Not Reportable 12/25/19 03:47 Platelet Estimate Consistent w auto 12/25/19 03:47 Clumped Platelets Not Reportable 12/25/19 03:47 Plt Clumps, EDTA Not Reportable 12/25/19 03:47 Large Platelets Not Reportable 12/25/19 03:47 Giant Platelets Not Reportable 12/25/19 03:47 Platelet Satelliting Not Reportable 12/25/19 03:47 Plt Morphology Comment Not Reportable 12/25/19 03:47 RBC Morphology Not Reportable 12/25/19 03:47 Dimorphic RBCs Not Reportable 12/25/19 03:47 Polychromasia Not Reportable 12/25/19 03:47 Hypochromasia Not Reportable 12/25/19 03:47 Poikilocytosis Not Reportable 12/25/19 03:47 Anisocytosis 1+ 12/25/19 03:47 Microcytosis Not Reportable 12/25/19 03:47 Macrocytosis Not Reportable 12/25/19 03:47 Spherocytes Not Reportable 12/25/19 03:47 Pappenheimer Bodies Not Reportable 12/25/19 03:47 Sickle Cells Not Reportable 12/25/19 03:47 Target Cells Not Reportable 12/25/19 03:47 Tear Drop Cells Not Reportable 12/25/19 03:47 Ovalocytes Not Reportable 12/25/19 03:47 Helmet Cells Not Reportable 12/25/19 03:47 Frias-Banning Bodies Not Reportable 12/25/19 03:47 Disney Rings Not Reportable 12/25/19 03:47 Jamshid Cells Not Reportable 12/25/19 03:47 Bite Cells Not Reportable 12/25/19 03:47 Crenated Cell Not Reportable 12/25/19 03:47 Elliptocytes Not Reportable 12/25/19 03:47 Acanthocytes (Spur) Not Reportable 12/25/19 03:47 Rouleaux Not Reportable 12/25/19 03:47 Hemoglobin C Crystals Not Reportable 12/25/19 03:47 Schistocytes Not Reportable 12/25/19 03:47 Malaria parasites Not Reportable 12/25/19 03:47 Gregg Bodies Not Reportable 12/25/19 03:47 Hem Pathologist Commnt No 12/25/19 03:47 PT 17.0 Sec. (12.2-14.9) H 11/23/19 03:47 INR 1.36 (0.87-1.13) H 11/23/19 03:47 APTT 128.2 Sec. (24.2-36.6) H* 11/23/19 03:47 Heparin Anti-Xa Level 0.31 U.I./ml (0.3-0.7) 11/23/19 09:03 ABG pH 7.433 pH Units (7.350-7.450) 03/08/20 13:25 ABG pCO2 40.2 mm Hg 03/08/20 13:25 ABG pO2 71.1 mm Hg (80.0-90.0) L 03/08/20 13:25 ABG HCO3 26.2 mmol/L (20.0-26.0) H 03/08/20 13:25 ABG O2 Saturation 97.0 % (95.0-99.0) 03/08/20 13:25 ABG O2 Content 11.0 (0.0-44) 03/08/20 13:25 ABG Base Excess 1.8 mmol/L (-2.0-3.0) 03/08/20 13:25 ABG Hemoglobin 8.2 gm/dl (12.0-16.0) L 03/08/20 13:25 ABG Carboxyhemoglobin 1.7 % (0.0-5.0) 03/08/20 13:25 ABG Methemoglobin 0.5 % (0.0-1.5) 03/08/20 13:25 Oxyhemoglobin 94.8 % (95.0-99.0) L 03/08/20 13:25 FiO2 21 % 03/08/20 13:25 Sodium 140 mmol/L (137-145) 05/01/20 07:57 Potassium 4.6 mmol/L (3.6-5.0) 05/01/20 07:57 Chloride 101.7 mmol/L (98-107) 05/01/20 07:57 Carbon Dioxide 27 mmol/L (22-30) 05/01/20 07:57 Anion Gap 16 mmol/L 05/01/20 07:57 BUN 21 mg/dL (7-17) H 05/01/20 07:57 Creatinine 0.7 mg/dL (0.6-1.2) 05/01/20 07:57 Estimated GFR > 60 ml/min 05/01/20 07:57 BUN/Creatinine Ratio 30 % 05/01/20 07:57 Glucose 96 mg/dL (65-100) 05/01/20 07:57 POC Glucose 152 (70-105) H 05/09/20 11:36 Lactic Acid 1.80 mmol/L (0.7-2.0) 11/25/19 05:05 Calcium 10.6 mg/dL (8.4-10.2) H 05/01/20 07:57 Ionized Calcium 4.5 mg/dL (4.8-5.6) L 11/23/19 06:32 Phosphorus 4.20 mg/dL (2.5-4.5) D 11/28/19 08:59 Magnesium 1.90 mg/dL (1.7-2.3) 02/28/20 03:40 Total Bilirubin 0.40 mg/dL (0.1-1.2) 12/13/19 07:48 AST 27 units/L (5-40) 12/13/19 07:48 ALT 26 units/L (7-56) 12/13/19 07:48 Alkaline Phosphatase 316 units/L (35-129) H 12/13/19 07:48 Ammonia 42.0 umol/L (25-60) 11/29/19 13:41 Total Creatine Kinase 139 units/L (30-135) H 11/22/19 23:27 CK-MB (CK-2) 8.3 ng/mL (0.0-4.0) H 11/22/19 23:27 CK-MB (CK-2) Rel Index 5.9 (0-4) H 11/22/19 23:27 Troponin T < 0.010 ng/mL (0.00-0.029) 11/22/19 23:27 Total Protein 6.8 g/dL (6.3-8.2) 12/13/19 07:48 Albumin 2.4 g/dL (3.9-5) L 12/13/19 07:48 Albumin/Globulin Ratio 0.5 % 12/13/19 07:48 Lipase 18 units/L (13-60) 11/23/19 00:34 Procalcitonin 1.09 ng/mL (<0.15) 11/23/19 04:53 TSH 1.140 mlU/mL (0.270-4.200) 04/30/20 15:06 Free T4 1.08 ng/dL (0.76-1.46) 02/12/20 07:36 Urine Color Yellow (Yellow) 12/16/19 Unknown Urine Turbidity Slightly-cloudy (Clear) 12/16/19 Unknown Urine pH 5.0 (5.0-7.0) 12/16/19 Unknown Ur Specific [place] 1.018 (1.003-1.030) 12/16/19 Unknown Urine Protein 30 mg/dl mg/dL (Negative) 12/16/19 Unknown Urine Glucose (UA) Neg mg/dL (Negative) 12/16/19 Unknown Urine Ketones Neg mg/dL (Negative) 12/16/19 Unknown Urine Blood Sm (Negative) 12/16/19 Unknown Urine Nitrite Neg (Negative) 12/16/19 Unknown Urine Bilirubin Neg (Negative) 12/16/19 Unknown Urine Urobilinogen < 2.0 mg/dL (<2.0) 12/16/19 Unknown Ur Leukocyte Esterase Neg (Negative) 12/16/19 Unknown Urine WBC (Auto) 6.0 /HPF (0.0-6.0) 12/16/19 Unknown Urine RBC (Auto) 9.0 /HPF (0.0-6.0) 12/16/19 Unknown U Epithel Cells (Auto) < 1.0 /HPF (0-13.0) 12/16/19 Unknown Urine Bacteria (Auto) 2+ /HPF (Negative) 11/22/19 23:17 Hyaline Casts 3 /LPF 12/16/19 Unknown Granular Casts 3 /LPF 12/16/19 Unknown Urine Mucus Few /HPF 12/16/19 Unknown Vancomycin Trough 33.8 ug/mL (5.0-20.0) H 12/21/19 08:56 Random Vancomycin 16.2 ug/mL (0-40.0) 12/24/19 04:31 Salicylates < 0.3 mg/dL (2.8-20.0) L 11/22/19 23:27 Urine Opiates Screen Presumptive negative 11/22/19 23:17 Urine Methadone Screen Presumptive negative 11/22/19 23:17 Acetaminophen < 5.0 ug/mL (10.0-30.0) L 11/22/19 23:27 Ur Barbiturates Screen Presumptive negative 11/22/19 23:17 Ur Phencyclidine Scrn Presumptive negative 11/22/19 23:17 Ur Amphetamines Screen Presumptive negative 11/22/19 23:17 U Benzodiazepines Scrn Presumptive negative 11/22/19 23:17 Urine Cocaine Screen Presumptive negative 11/22/19 23:17 U Marijuana (THC) Screen Presumptive negative 11/22/19 23:17 Drugs of Abuse Note Disclamer 11/22/19 23:17 Plasma/Serum Alcohol 0.08 % (0-0.07) H 11/22/19 23:27 Coronavirus (PCR) Negative (Negative) 05/17/20 Unknown Hepatitis A IgM Ab Non-reactive (NonReactive) 11/23/19 01:19 Hep Bs Antigen Non-reactive (Negative) 11/23/19 01:19 Hep B Core IgM Ab Non-reactive (NonReactive) 11/23/19 01:19 Hepatitis C Antibody Non-reactive (NonReactive) 11/23/19 01:19 Blood Type O POSITIVE 12/21/19 14:54 Antibody Screen Negative 12/21/19 14:54 Crossmatch See Detail 12/21/19 14:54 - Diagnostic Impressions Diagnostic Impressions: Echocardiogram 11/23/19 03:58 Transthoracic Echocardiogram Indication: Cardiac arrest BP: 131/89 HR: 115 Conclusions *The study quality is technically difficult. *Global left ventricular wall motion and contractility are within normal limits. *The estimated ejection fraction is 55-60%. *Abnormal left ventricular diastolic filling is observed, consistent with impaired relaxation. *There is no pericardial effusion. Findings Procedure Info: The study quality is technically difficult. The study was technically limited due to the patient's inability to lay in the left lateral decubitus position. Left Ventricle: The left ventricular chamber size is normal. There is no left ventricular hypertrophy. Global left ventricular wall motion and contractility are within normal limits. Global left ventricular systolic function is normal. The estimated ejection fraction is 55-60%. Abnormal left ventricular diastolic filling is observed, consistent with impaired relaxation. Left Atrium: The left atrial chamber size is normal. Aortic Valve: The aortic valve leaflets are mildly thickened. Mitral Valve: The mitral valve leaflets are mildly thickened. There is no evidence of mitral regurgitation. Tricuspid Valve: The tricuspid valve leaflets are normal. There is trace tricuspid regurgitation. The right ventricular systolic pressure is calculated at 33 mmHg. Pulmonic Valve: The pulmonic valve appears normal. Pericardium: The pericardium appears normal. There is no pericardial effusion. Aorta: The aorta appears normal. Venous: The inferior vena cava appears normal in size. Measurements Chambers 2D Name Value Normal Range IVSd (2D) 0.94 cm (0.6 - 1.1) LVPWd (2D) 0.81 cm (0.6 - 1.1) LVIDd (2D) 3.6 cm (3.7 - 5.6) LVIDs (2D) 2.27 cm (2 - 3.8) LV FS (2D) 36.93 % - EF Teichholz (2D) 67.76 % - Ao root diameter (2D) 3.03 cm (2 - 3.7) Volumes/Mass Name Value Normal Range LA ESV SP 4CH (A/L) 16.89 ml - LA ESV SP 4CH (MOD) 15.52 ml - Diastolic/Systolic Function Name Value Normal Range MV E-wave Vmax 0.55 m/sec - MV deceleration time 200.89 msec - MV A-wave Vmax 0.68 m/sec - MV E:A ratio 0.82 ratio - Aortic Valve Name Value Normal Range AV Vmax 1.1 m/sec - AV VTI 15.9 cm - AV peak gradient 4.86 mmHg - AV mean gradient 2.59 mmHg - LVOT diameter 2 cm - LVOT Vmax 1.03 m/sec - LVOT VTI 15.87 cm - LVOT peak gradient 4.24 mmHg - LVOT mean gradient 2.41 mmHg - SV LVOT 49.77 ml - JOSÉ MIGUEL (continuity Vmax) 2.93 cm2 - JOSÉ MIGUEL (continuity VTI) 3.13 cm2 - Tricuspid Valve Name Value Normal Range TR Vmax 2.74 m/sec - TR peak gradient 303 mmHg - RAP 3 mmHg - RVSP 33 mmHg - IVC diameter 1.77 cm (1.2 - 2.3) Pulmonic Valve/Qp:Qs Name Value Normal Range PV Vmax 0.77 m/sec - PV peak gradient 2.4 mmHg - PV acceleration time 114.18 msec - Echocardiogram Limited Views 12/17/19 14:53 Transthoracic Echocardiogram Indication: R/O Vegetations BP: 144/83 HR: 133 Conclusions *Global left ventricular systolic function is mildly decreased. *The estimated ejection fraction is 45-50%. *A trivial pericardial effusion is visualized. Findings Left Ventricle: The left ventricular chamber size is normal. Global left ventricular systolic function is mildly decreased. The estimated ejection fraction is 45-50%. Left Atrium: The left atrial chamber size is normal. Right Ventricle: The right ventricular cavity size is normal. Right Atrium: The right atrial cavity size is normal. Aortic Valve: The aortic valve is not well visualized. There is no evidence of aortic regurgitation. Mitral Valve: The mitral valve leaflets are mildly thickened. There is trace of mitral regurgitation. Tricuspid Valve: The tricuspid valve leaflets are mildly thickened. There is trace tricuspid regurgitation. The right ventricular systolic pressure is calculated at 29 mmHg. Pulmonic Valve: The pulmonic valve is not well visualized. There is no evidence of pulmonic regurgitation. Pericardium: A trivial pericardial effusion is visualized. Aorta: There is no dilatation of the ascending aorta. There is no dilatation of the aortic root. Venous: The inferior vena cava appears normal in size. There is a greater than 50% respiratory change in the inferior vena cava dimension. Measurements Chambers 2D Name Value Normal Range IVSd (2D) 0.83 cm (0.6 - 1.1) LVPWd (2D) 0.98 cm (0.6 - 1.1) LVIDd (2D) 3.71 cm (3.7 - 5.6) LVIDs (2D) 2.93 cm (2 - 3.8) LV FS (2D) 21.12 % - EF Teichholz (2D) 43.71 % - Ao root diameter (2D) 3.02 cm (2 - 3.7) Volumes/Mass Name Value Normal Range LA ESV SP 4CH (A/L) 36.8 ml - LA ESV SP 2CH (A/L) 45.89 ml - LA ESV BP (A/L) 42.35 ml - LA ESV BP (A/L) index 26.63 ml/m2 - LA ESV SP 4CH (MOD) 34.42 ml - LA ESV SP 2CH (MOD) 44.21 ml - LA ESV BP (MOD) 39.82 ml - LA ESV BP (MOD) index 25.05 ml/m2 - Aortic Valve Name Value Normal Range LVOT diameter 1.63 cm - Tricuspid Valve Name Value Normal Range TR Vmax 2.56 m/sec - TR peak gradient 26 mmHg - RAP 3 mmHg - RVSP 29 mmHg - IVC diameter 1.83 cm (1.2 - 2.3) Dela Cruz/IV: Voiding Method Incontinent IV Catheter Type [Forearm] Peripheral IV IV Catheter Type [Left Forearm INT / Saline Lock ] IV Catheter Type [Right INT / Saline Lock Antecubital] IV Catheter Type [Right Hand] INT / Saline Lock IV Catheter Type [Right Wrist] Peripheral IV IV Catheter Type [Left Wrist] Peripheral IV IV Catheter Type [Left Peripheral IV Antecubital] IV Catheter Type [Right INT / Saline Lock Forearm] IV Catheter Type [Left Hand] INT / Saline Lock Active Medications - Current Medications Current Medications: Generic Name Dose Route Start Last Admin Trade Name Freq PRN Reason Stop Dose Admin Albuterol 2.5 mg 03/25/20 19:25 04/07/20 08:59 Proventil IH 2.5 mg Q4HRT PRN Administration Shortness Of Breath Enoxaparin Sodium 40 mg 03/07/20 22:00 05/19/20 21:44 Enoxaparin SUB-Q 40 mg QDAY@2200 LUCHO Administration Folic Acid 1 mg 04/27/20 10:00 05/19/20 09:16 Folvite PO 1 mg QDAY LUCHO Administration Guaifenesin 10 ml 04/28/20 05:11 05/15/20 20:53 Guaifenesin Dm Syrup PO 10 ml Q6H PRN Administration Cough Hydroxyzine Pamoate 25 mg 12/06/19 10:00 05/19/20 21:44 Vistaril PO 25 mg BID LUCHO Administration Lansoprazole 30 mg 11/27/19 10:00 05/19/20 09:16 Prevacid Solutab FEEDTUBE 30 mg QDAY LUCHO Administration Levetiracetam 500 mg 11/29/19 10:00 05/19/20 21:44 Keppra PO 500 mg BID LUCHO Administration Lorazepam 1 mg 05/08/20 22:00 05/19/20 21:44 Ativan PO 1 mg QHS LUCHO Administration Mirtazapine 30 mg 12/06/19 10:00 05/19/20 09:17 Remeron PO 30 mg DAILY LUCHO Administration Nicotine 21 mg 02/16/20 13:00 05/19/20 09:16 Habitrol TD 21 mg QDAY LUCHO Administration Scopolamine 1 each 02/08/20 15:00 05/17/20 10:35 Transderm-Scop TD 1 each Q3D LUCHO Administration Sertraline HCl 25 mg 01/01/20 10:00 05/19/20 09:16 Zoloft PO 25 mg QDAY LUCHO Administration Nutrition/Malnutrition Assess - Dietary Evaluation Nutrition/Malnutrition Findings: Nutrition Notes Start: 11/23/19 11:29 Freq: Status: Active Protocol: Document 04/23/20 14:33 EVELIA (Rec: 04/23/20 14:35 [facility]- FNSERVICES1) Nutrition Notes Initial or Follow up Reassessment Other Pertinent Diagnosis s/p Cardiac arrest, acute metabolic encephalopathy Current Diet Mech soft with chopped meats Labs/Tests Reviewed Pertinent Medications Reviewed Height 5 ft 6 in Weight 43.5 kg Cammal Body Weight (kg) 59.09 BMI 15.5 Subjective/Other Information Pt has consumed 79% of meals since last assessment. Percent of energy/protein needs met: 100% energy 100% pro Burn Absent Trauma Absent Current % PO Good (75-100%) #2 Nutrition Diagnosis Malnutrition Diagnosis Progress(for reassessment Continues documentation) Is patient on ventilator? No Is Patient Ambulatory and/or Out of Bed No REE-([facility]-confined to bed) 1260.864 Kcal/Kg value to use for calculation 35 Approximate Energy Requirements Using 1523 kcal/Kg Calculation Used for Recommendations Kcal/kg Additional Notes Pro needs 1.2-1.5g/k-65g/ day Fluid needs 1ml/kcal Nutrition Intervention Goal #1 PO intake of meals plus ONS to meet 100% energy and pro needs Goal #2 Wt maintenance and/or gain Revisit per MD consult or patient Sign Off request:
[2020-05-20] MEDS: SERTRALINE 50 MG TAB PO SCH (10:57)
[2020-05-20] MEDS: FOLIC ACID 1 MG TAB PO SCH (10:57)
[2020-05-20] MEDS: LANSOPRAZOLE 30 MG SOLUTAB FEEDTUBE SCH (10:57)
[2020-05-20] MEDS: MIRTAZAPINE 30 MG TAB PO SCH (10:57)
[2020-05-20] MEDS: hydrOXYzine PAMOATE 25 MG CAP PO SCH (10:57)
[2020-05-20] MEDS: levETIRAcetam 500 MG/5 ML ORAL LIQD PO SCH (10:57)
[2020-05-20] MEDS: NICOTINE 21 MG/24 HR PATCH TD SCH (10:57)
[2020-05-20] MEDS: SCOPOLAMINE TRANSDERMAL PATCH 72 HR TD SCH (10:58)
[2020-05-20 13:12] VITALS: BP 132/92
== END 2020-05-20 13:25 | disposition home health service (06) | DRG 4 ==
LOC: ED 23:01 → CC1 11-23 01:40 → IMCU 01-09 17:00 → 4A 01-21 17:55
PROVIDERS: ADMIT Hospitalist; ATTEND Internal Medicine
PROC: 5A1955Z Respiratory Ventilation, Greater than 96 Consecutive Hours (ICD-10-PCS; principal; 2019-11-23)
PROC: 0BH17EZ Insertion of Endotracheal Airway into Trachea, Via Natural or Artificial Opening (ICD-10-PCS; 2019-11-23)
PROC: 4A033R1 Measurement of Arterial Saturation, Peripheral, Percutaneous Approach (ICD-10-PCS; 2019-11-23)
PROC: 5A12012 Performance of Cardiac Output, Single, Manual (ICD-10-PCS; 2019-11-29)
PROC: 0B113F4 Bypass Trachea to Cutaneous with Tracheostomy Device, Percutaneous Approach (ICD-10-PCS; 2019-12-12)
PROC: 30233N1 Transfusion of Nonautologous Red Blood Cells into Peripheral Vein, Percutaneous Approach (ICD-10-PCS; 2019-12-13)
PROC: 0BJ08ZZ Inspection of Tracheobronchial Tree, Via Natural or Artificial Opening Endoscopic (ICD-10-PCS; 2019-12-16)
PROC: 0DH63UZ Insertion of Feeding Device into Stomach, Percutaneous Approach (ICD-10-PCS; 2019-12-16)
DX: A41.9 Sepsis, unspecified organism (principal); J69.0 Pneumonitis due to inhalation of food and vomit; I26.99 Other pulmonary embolism without acute cor pulmonale; I46.9 Cardiac arrest, cause unspecified; G92 Toxic encephalopathy; J96.00 Acute respiratory failure, unspecified whether with hypoxia or hypercapnia; E43 Unspecified severe protein-calorie malnutrition; J15.211 Pneumonia due to Methicillin susceptible Staphylococcus aureus; E87.2 Acidosis; G93.1 Anoxic brain damage, not elsewhere classified; E72.20 Disorder of urea cycle metabolism, unspecified; Z68.1 Body mass index [BMI] 19.9 or less, adult; N30.00 Acute cystitis without hematuria; Z99.11 Dependence on respirator [ventilator] status; E87.0 Hyperosmolality and hypernatremia; F10.10 Alcohol abuse, uncomplicated; R79.89 Other specified abnormal findings of blood chemistry; R94.5 Abnormal results of liver function studies; D72.829 Elevated white blood cell count, unspecified; E87.6 Hypokalemia; Z66 Do not resuscitate; E83.52 Hypercalcemia; E87.5 Hyperkalemia; K75.89 Other specified inflammatory liver diseases; T78.3XXA Angioneurotic edema, initial encounter; D50.9 Iron deficiency anemia, unspecified; G40.909 Epilepsy, unspecified, not intractable, without status epilepticus; Z20.828 Contact with and (suspected) exposure to other viral communicable diseases; I10 Essential (primary) hypertension; Y90.9 Presence of alcohol in blood, level not specified; B96.3 Hemophilus influenzae [H. influenzae] as the cause of diseases classified elsewhere; J40 Bronchitis, not specified as acute or chronic; Z79.899 Other long term (current) drug therapy
CPT/HCPCS: 31500; 36415; 36600; 70450; 71045; 71275; 74018; 74022; 74176; 76700; 80048; 80053; 80074; 80202; 80307; 80320; 81001; 82140; 82270; 82330; 82550; 82553; 82803; 82962; 83690; 83735; 84100; 84145; 84439; 84443; 84484; 85007; 85014; 85018; 85025; 85027; 85049; 85520; 85610; 85730; 86850; 86900; 86901; 86920; 87040; 87070; 87076; 87086; 87116; 87186; 87205; 90686; 90732; 93005; 93010; 93306; 93308; 93321; 93325; 94002; 94003; 94640; 94760; 94770; 96361; 96365; 96367; 96375; G0378; C9113; G0480; J0330; J0360; J0692; J0696; J1100; J1200; J1630; J1644; J1650; J1940; J1953; J2060; J2250; J2270; J2370; J2405; J2543; J2704; J2765; J2930; J3010; J3370; J3411; J3475; J3480; J3490; J7030; J7040; J7050; P9016; Q0177; Q9967; U0003; U0003-CS